=== PATIENT | male | born 1965 | race African-American/Black ===

== ENCOUNTER 2022-09-01 20:07 | Outpatient (CLI) | payer MEDICARE, MEDICAID, SELFPAY ==
--- OUTSIDE RECORDS SUMMARY | 2022-09-01 20:11 | XMS_ITS | Encounter Summary ---
:1965 Author Organization [place] Address [address] [place] [address] Care Team Providers Name Role Phone Preet Huff Primary Care Provider Encounter Details Date Type Department Care Team Description 03/17/2020 Travel Social History Tobacco Use Types Packs/Day Years Used Date Smoking Tobacco: Never Smokeless Tobacco: Never Alcohol Use Standard Drinks/Week Comments No 0 (1 standard drink = 0.6 oz pure alcoho l) Sex Assigned at Date Recorded Not on file COVID-19 Exposure Response Date Recorded In the last month, have you been in contact Unable to assess 03/17/2020 12:48 PM CDT with someone who was confirmed or suspected to have Coronavirus / COVID-19? documented as of this encounter Plan of Treatment Not on filedocumented as of this encounter Visit Diagnoses Not on filedocumented in this encounter Care Teams Bookbinding Machine Operator Relationship Specialty Start Date End Date Preet Huff PCP - General 06/24/11 documented as of this encounter
--- OUTSIDE RECORDS SUMMARY | 2022-09-01 20:11 | XMS_ITS | Encounter Summary ---
:1965 Author Organization [place] Address [address] [place] [address] Care Team Providers Name Role Phone Preet Huff Primary Care Provider Encounter Details Date Type Department Care Team Description 02/11/2022 Travel Social History Tobacco Use Types Packs/Day Years Used Date Smoking Tobacco: Never Smokeless Tobacco: Never Alcohol Use Standard Drinks/Week Comments No 0 (1 standard drink = 0.6 oz pure alcoho l) Sex Assigned at Date Recorded Not on file COVID-19 Exposure Response Date Recorded In the last 10 days, have you been in contact with No / Unsu re 02/11/2022 8:53 AM CDT someone who was confirmed or suspected to have Coronavirus/COVID-19? documented as of this encounter Plan of Treatment Not on filedocumented as of this encounter Visit Diagnoses Not on filedocumented in this encounter Care Teams Fitter Up Relationship Specialty Start Date End Date Preet Huff PCP - General 06/24/11 documented as of this encounter
--- OUTSIDE RECORDS SUMMARY | 2022-09-01 20:11 | XMS_ITS | Clinical Summary ---
:1965 Author Organization [employer] [facility] [employer] [facility] [place] [address] Care Team Providers Name Role Phone Preet Huff MD Primary Care Provider [phone] Allergies Active Allergy Reactions Severity Noted Date Comments Aspirin GI Bleeding Dihydroxyaluminum Aminoacetate Nausea Only Medium 07/16/2011 GI bleeding Medications Medication Sig Dispensed Refills Start Date End Date Status Diabetic One pair of 1 Units 0 11/03/2017 Active ShoeIndications: diabetic shoes. Controlled type 2 Diagnosis: diabetes mellitus with diabetes complication, without mellitus with long-term current use foot callous and of insulin (HC) bony deformity. wheelchairIndications: Wheelchair: 1 Device 0 12/20/2017 Active Unsteady gait Standard with leg rests: Swing away Length of need: 12 months WalkerIndications: Rolling Walker 1 Device 0 12/20/2017 Active Unsteady gait for home use. hospital Hospital bed 1 unit 0 01/31/2018 Active bedIndications: Foot with rails: ulcer, left, with Electric, Length unspecified severity of need 99 (HC) months. Diagnosis: foot ulcer with need to elevated foot of bed. bisacodyl (DULCOLAX) 5 Take 2 tablets 0 02/02/2018 Active mg tabletIndications: by mouth once Chronic constipation daily. Tuesday, Tuesday, Tuesday and Tuesday. CPAPIndications: CPAP machine for 1 unit 11 07/27/2018 Active Obstructive sleep home use at apnea pressure: 8 cm/H2O , Heated humidifier x 1, Humidifier chamber x 1, warfarin (COUMADIN) 5 Take 1 tablet by 90 tablet 3 11/16/2018 Active mg tabletIndications: mouth once Anticoagulation daily. management encounter cholecalciferol Take 1 capsule 90 capsule 3 11/16/2018 Active (D3-2000) 2,000 unit by mouth once capsuleIndications: daily. Vitamin D deficiency durable medical Walker with seat 1 Each 0 12/01/2018 Active equipment (DME)Indications: Gait instability Diaper,Brief, For home use. 119 Each 03/06/2020 A ctive Adult,Disposable (DEPEND UNDERWEAR FOR MEN L-XL)Indications: Incontinence ammonium lactate 12% Apply topically 396 g 5 12/29/2021 Active topical (LACHYDRIN) 12 to affected % lotionIndications: area(s) 2 times Dry skin, Type 2 daily. diabetes mellitus with pressure callus (HC) Calcium Acetate TAKE TWO 720 Capsule 1 03/08/2022 A ctive (PHOS-LO) 667 mg CAPSULES BY capsuleIndications: MOUTH THREE ESRD (end stage renal TIMES A DAY WITH disease) (HC) MEALS AND ONE CAPSULE WITH SNACKS DIRECTED metoprolol tartrate TAKE 2 TABLETS 128 Tablet 06/23/2022 Active (LOPRESSOR) 100 mg BY MOUTH ON tabletIndications: TUESDAY, Hypertension, TUESDAY, unspecified type TUESDAY, AND Tuesday. lisinopriL (PRINIVIL; Take 2 Tablets 180 Tablet 06/23/2022 Active ZESTRIL) 20 mg (40 mg) by mouth tabletIndications: once daily. Hypertension, unspecified type lactulose 10 gram/15 Take 30 mL (20 5400 mL 10 06/23/2022 Active mL g) by mouth two solutionIndications: times daily. Chronic constipation atorvastatin (LIPITOR) Take 1 Tablet 90 Tablet 06/23/2022 Active 20 mg (20 mg) by mouth tabletIndications: once daily. Mixed hyperlipidemia b complex-vitamin Take 1 Capsule 90 Capsule 06/23/2022 Active c-folic acid 1 mg by mouth once (Triphrocaps) 1 mg daily. capsuleIndications: CKD (chronic kidney disease), stage IV (HC) amLODIPine (NORVASC) TAKE ONE TABLET 128 Tablet 06/23/2022 Active 10 mg BY MOUTH TWICE tabletIndications: HTN DAILY ONLY ON (hypertension) TUESDAY, TUESDAY, TUESDAY, AND TUESDAY (NON-DIALYSIS DAYS) DIRECTED sennosides (SENNA) 8.6 Take 2 Tablets 360 Tablet 06/23/2022 Active mg tabletIndications: (17.2 mg) by Chronic constipation mouth two times daily. 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 04/29/2011 Secondary hyperparathyroidism (of renal origin) 2010 ESRD (end stage renal disease) 11/17/2010 Anemia in chronic kidney disease(285.21) 06/27/2009 Orthostasis 03/13/2009 Syncope 03/13/2009 Obesity, unspecified 11/15/2007 Proteinuria 09/29/2007 Legal blindness, as defined in [place] 01/06/2007 Unspecified essential hypertension 01/06/2007 SHIRLEY on CPAP Overview: CPAP Resolved Problems Problem Noted Date Resolved Date Hypertensive urgency 07/13/2015 05/22/2020 Open thigh wound 06/30/2014 08/13/2019 SHIRLEY (obstructive sleep apnea) 11/18/2010 07/13/2015 Sleep Apnea 02/21/2008 AHI 18, retest 11/04/10 11/09/2010 11/09/2010 Sleep Apnea 02/21/2008 AHI 18, retest 11/04/10 11/09/2010 08/13/2019 ANEMIA 01/12/2010 09/29/2011 Anemia in chronic kidney disease(285.21) 06/27/2009 08/07/2009 Anemia in chronic kidney disease(285.21) 06/27/2009 08/07/2009 Anemia in chronic kidney disease(285.21) 04/18/2009 08/07/2009 Type 2 diabetes mellitus with ophthalmic complication, 03/1402/02/2018 without long-term current use of insulin Hyperkalemia 03/13/2009 07/13/2015 Dehydration 03/13/2009 07/13/2015 Anemia in chronic kidney disease(285.21) 02/07/2009 08/07/2009 Anemia in chronic kidney disease(285.21) 10/04/2008 03/13/2009 CKD (chronic kidney disease), stage IV 07/12/2008 1 12/01/2015 Sleep Apnea 02/21/2008 AHI 18 05/21/2008 11/09/2010 Mixed hyperlipidemia 04/02/2008 07/13/2015 Background diabetic retinopathy(362.01) 11/15/2007 09/30/2016 Anemia, unspecified 01/06/2007 07/13/2015 Encounters Date Type Specialty Care Team Description 08/31/2022 Nurse/Clinic Staff Testing ( Pre-procedure Only COVID test) 08/31/2022 Travel 07/15/2022 Office Visit Lizandro Singh MD Sleep Follow -up (CPAP) 07/15/2022 Travel 06/29/2022 Office Visit Anival Carson Follow Up (6 month R, DPM diabetic foot c heck) 06/29/2022 Travel 06/23/2022 Office Visit Preet Huff Medication Management; MD Criss Immunization/In jection; Immunization/In jection (COVID-19 vacci ne) 06/23/2022 Travel 06/10/2022 Telephone Preet Huff Medication Management MD Criss (metoprolol tar trate (LOPRESSOR) ) 06/07/2022 Refill Preet Huff Refill Requ est MD Criss (Metoprolol Tar trate, Amlodipine) from Last 3 Months Immunizations Name Administration Dates Next Due COVID-19 vaccine (Moderna 11/28/2020, 10/31/2020 100mcg/0.5mL) PF, MDV COVID-19 vaccine ([employer] 06/23/2022 30mcg/0.3mL) 12YO+ BIVALENT BOOSTER PF, MDV Hepatitis B (Adult) 11/07/2013, 09/25/2013, 04/24/2013, 11/1003/23/2011, 01/28/2011, 12/26/2010, 11/12/2010, 07/14/2010, 03/11/2010, 02/11/2010, 01/12/2010, 10/21/2009 Influenza A (H1N1), Inactivated (Age 0110/21/2009 >=3 Years) Influenza Virus, Unspecified 07/20/2016, 07/27/2014 Influenza, IIV3 (Age >=3 years) 07/13/2017, 06/27/2013, 1006/2012, 07/14/2010, 07/09/2009, 09/06/2007 Influenza, IIV4 06/23/2022, 08/05/2021, 07/11/2020, 08/01/2019, 07/13/2018, 07/17/2015 Influenza, IIV4 (=>6mos) MDV 07/13/2017 Pneumococcal Poly,23-Valent 10/09/2008 (Pneumovax) Pneumococcal conj 13-Valent (Prevnar 01/17/2019 13) Pneumococcal, Unspecified 12/02/2015, 10/12/2010 Tdap 10/21/2009 Tuberculin (PPD) 12/09/2021, 12/15/2020, 11/21/2019, 10/12/2018, 11/05/2017, 10/21/2016, 10/21/2015, 11/02/2014, 02/14/2014, 11/30/2011, 10/21/2009 Family History Medical History Relation Name Comments Diabetes Maternal Aunt 1 Hypertension Maternal Aunt 2 Cancer-colon Maternal Grandmother Hypertension Mother Cancer-prostate Neg. 1 Heart Disease Neg. 2 Anesthesia Problem No Family History Relation Name Status Comments Maternal Aunt 1 Maternal Aunt 2 Maternal Grandmother Mother Neg. 1 Neg. 2 Social History Tobacco Use Types Packs/Day Years Used Date Passive Smoke Exposure - Never Smoker Smokeless Tobacco: Never Used Tobacco Cessation: Counseling Given: Yes Comments: people smoke in house Alcohol Use Standard Drinks/Week Comments No 0 (1 standard drink = 0.6 oz pure alcoho l) Sex Assigned at Date Recorded Not on file COVID-19 Exposure Response Date Recorded In the last 10 days, have you been in contact with No / Unsu re 08/31/2022 2:42 PM CONSULTANT TECHNOLOGY someone who was confirmed or suspected to have Coronavirus/COVID-19? Obstetrics History Last Filed Vital Signs Vital Sign Reading Time Taken Comments Blood Pressure 122/85 07/15/2022 1:59 PM CDT Pulse 60 07/15/2022 1:59 PM CDT Temperature 36.9 ??C (98.4 ??F) 05/22/2020 1:36 PM CDT Respiratory Rate 18 06/07/2018 11:08 AM CDT Oxygen Saturation 99% 07/15/2022 1:59 PM CDT Inhaled Oxygen Concentration - - Weight 87.7 kg (193 lb 6.4 oz) 07/15/2022 1:59 PM CDT Height 171.9 cm (5' 7.68) 06/23/2022 3:03 PM CDT Body Mass Index 29.69 06/23/2022 3:03 PM CDT Plan of Treatment Upcoming Encounters Date Type Specialty Care Team Description 09/07/2022 Office Visit Myrna Carson, DPM [address] [place], [place] [address] (Wo rk) Health Maintenance Due Date Last Done Comments Zoster (shingles) series for age 0603/27/1982 50+ (1 of 2) Tetanus booster 10/21/2019 10/21/2009 Depression screening for age 12+ 08/13/2020 08/13/2019, 03/2017, 02/06/2016 BMI (ht and wt on same day) for 06/23/2023 06/23/2022, 05/2021, age 18+ 09/05/2020, Additional history exists Colonoscopy through age 75 09/24/2023 09/24/2013, 3 Lipids for age 45-75 11/18/2026 11/18/2021, 09/05/2020, 05/22/2020, Additional history exists Pneumococcal series for age 19-64 2028 01/17/2019, , (4 - PPSV23 if available, else 10/12/2010, Addit ional history PCV20) exists HIV for age 15-65 Completed 03/04/2009 Hepatitis C screening for age Completed 03/04/2009 18-79 Tdap Completed 10/21/2009 Hepatitis B series for Diabetes Completed 11/07/2013, 09/09, 04/24/2013, Additional history exists COVID-19 vaccine series Completed 06/23/2022, 01/13/2022, 08/17/2021, Additional history exists Influenza for age 50-64 Completed 06/23/2022, 08/05/2021, 07/11/2020, Additional history exists Medical Devices Implanted Type Area Rate Clerk Device Shelf Model / Identifier Expiration Date Ser ial / Lot Cath Peritoneal Cvd 62cm - [id number] N/A: Abdomen STIVEN 05/10/2014 [id number] / Implanted: Qty: 1 on 10/31/[address] [facility] / [id number] Procedures Procedure Name Priority Date/Time Associated Comments Diagnosis COVID 19 Routine 08/31/2022 2:44 PM Encounter for Results for this CONSULTANT TECHNOLOGY pre-operative procedure are in laboratory testing the resul ts section. COVID 19 COLLECTION Routine 08/31/2022 2:44 PM Encounter for R esults for this CONSULTANT TECHNOLOGY pre-operative procedure are in laboratory testing the resul ts section. HEMOGLOBIN A1C Routine 06/23/2022 4:25 PM DM type 2 with Resul ts for this CDT diabetic peripheral procedur e are in neuropathy (HC) the results section. from Last 3 Months Results COVID 19 (08/31/2022 2:44 PM CONSULTANT TECHNOLOGY) Analysis Performed At Patho logist Time Signature COVID 19 Negative Negative 09/01/2022 [facility] 6:55 PM CONSULTANT TECHNOLOGY LABORATORY-[facility] Specimen Anatomical Location / Collection Method Collection Wild e Received Time (Source) Laterality / Volume Other SPECIMEN FROM Non-Blood / 08/31/2022 2:44 09/01/2022 7:14 NASOPHARYNGEAL Unknown PM CONSULTANT TECHNOLOGY AM CONSULTANT TECHNOLOGY STRUCTURE / Unknown Narrative [facility] - 09/01/2022 6:55 PM CONSULTANT TECHNOLOGY All PCR tests are subject to false negative result due to variability in viral load and collection te chnique. A negative result does not rule out a SARS-CoV-2 infection. Clinical correlation required. This test has been authorized by FDA und er an Emergency Use Authorization (EUA). This test is only authorized for the duration of time the declaration that circumstances exist justifying the authorizati on of the emergency use of in vitro diag nostic tests for detection of SARS-CoV-2 virus and/or diagnosis of COVID-19 infection under section 564(b)(1) of the Act, 21 U.S.C. 360bbb-3(b) (1), unless the authorization is terminated or revoked sooner. Lizandro Singh MD MICROBIOLOGY Performing Organization Address City/State/ZIP Code Phon e Number [facility] [address] [place] [address] LABORATORY-CENTRAL 2000 LABORATORY COVID 19 COLLECTION (08/31/2022 2:44 PM CONSULTANT TECHNOLOGY) Patholo gist Method Time Signature TESTING [facility] 09/01/2022 [facility] Laboratory 7:14 AM CONSULTANT TECHNOLOGY LABORATORY-CE NTRAL LABORATORY Comment: Specimen submitted to [facility] for testing. Specimen Anatomical Location / Collection Method Collection Wild e Received Time (Source) Laterality / Volume Other SPECIMEN FROM Non-Blood / 08/31/2022 2:44 08/31/2022 2:52 NASOPHARYNGEAL Unknown PM CONSULTANT TECHNOLOGY PM CONSULTANT TECHNOLOGY STRUCTURE / Unknown Lizandro Singh MD SEND OUTS Performing Organization Address City/[facility]/ZIP Code Phon e Number [facility] [address] [place] [address] LABORATORY-CENTRAL 2000 LABORATORY HEMOGLOBIN A1C MONITORING (POCT) (06/23/2022 4:25 PM CDT) athologist Signature HEMOGLOBIN A1C 4.6 <=6.4 % 06/23/2022 [facility] MONITORING 4:38 PM CDT [place] (POCT) [facility] Specimen Anatomical Collection Method / Collection Time Recei ten Time (Source) Location / Volume Laterality Blood BLOOD SPECIMEN / Venipuncture / 06/23/2022 4:25 2021 4:26 Unknown Unknown PM CDT PM CDT Narrative [facility] - 2021 4:38 PM CDT ? (<=6.9%) ? Indicates good control ? (7.0% to 7.9%) ? Indicates fa ir control ? (>=8.0%) ? Indicates poor control ?? NOTE: ??These thresholds are guideli emily and ?individual targets may va ry. Falsely low levels may be seen with: Recent Transfusion, Recent Significant B lood Loss, Hemolytic Diseases, or Falsely elevated levels may be seen with : Untreated Anemias, Splenectomy ? Preet Huff MD CHEMISTRY Performing Organization Address City/[facility]/ZIP Code Phon e Number [facility] [address] [place] [address] from Last 3 Months Insurance Payer Benefit Plan / Subscriber ID Effective Phone Address T ype Group Dates KIDNEY KIDNEY [id number] Effective for [address] ACQUISITION CTR all dates STRE ET PB PB ONLY [place]W - [address] [place] [address] MEDICARE PART B - MEDICARE PART B [id number] 1992-Prese ATTN: CLAIMS HB USE ONLY HB ONLY nt [address] [place] [address] MEDICARE PART A - MEDICARE PART A [id number] 1992-Prese ATTN: CLAIMS HB USE ONLY HB ONLY nt [address] [place] [address] MEDICARE - PB USE MEDICARE PB ONLY [id number] 1992-Prese ATTN: CLAIMS ONLY nt [address] [place] [address] KIDNEY KIDNEY [id number] 2009-Prese [address] ACQUISITION CTR nt STRE ET HB ONLY HB ONLY [place]W - [address] [place] [address] [place] [id number] 1992-Prese [address] [place] [address] Advance Directives Documents on File Type Date Recorded Patient Music Engineer Explanati on Power of Building Contractor 09/04/2014 12:00 AM 03/19/2009 Latest Code Status on File Code Status Date Activated Date Inactivated Comments Full Code 07/13/2015 12:39 PM 07/14/2015 9:58 PM Code Status Discussion: Discussed Full Code 11/18/2010 3:29 PM 11/18/2010 7:15 PM Full Code 11/18/2010 2:39 PM 11/18/2010 3:29 PM Full Code 10/31/2009 6:56 AM 10/31/2009 12:55 PM Full Code 03/13/2009 5:57 PM 03/16/2009 5:32 PM Care Teams Installation & Maintenance Executive Relationship Specialty Start Date End Date Preet Huff MD PCP - General 12/02/[address] [place] [address]
--- OUTSIDE RECORDS SUMMARY | 2022-09-01 20:11 | XMS_ITS | Encounter Summary ---
:1965 Author Organization [place] Address [address] [place] [address] Care Team Providers Name Role Phone Preet Huff Primary Care Provider Encounter Details Date Type Department Care Team Description 10/02/2019 Travel Social History Tobacco Use Types Packs/Day Years Used Date Smoking Tobacco: Never Smokeless Tobacco: Never Alcohol Use Standard Drinks/Week Comments No 0 (1 standard drink = 0.6 oz pure alcoho l) Sex Assigned at Date Recorded Not on file documented as of this encounter Plan of Treatment Not on filedocumented as of this encounter Visit Diagnoses Not on filedocumented in this encounter Care Teams Diagnostics Tech Relationship Specialty Start Date End Date Preet Huff PCP - General 06/24/11 documented as of this encounter
--- OUTSIDE RECORDS SUMMARY | 2022-09-01 20:11 | XMS_ITS | Encounter Summary ---
:1965 Author Organization [place] Address [address] [facility] [place] [address] Care Team Providers Name Role Phone Preet Huff Hans Primary Care Provider Encounter Details Date Type Department Care Team Description 03/11/[address] [facility] Wojciech Holman Enco unter for [facility] [place] screening for other [address] INTERMED viral diseases [place], [place] [employer]SULTANTS (Primary Dx) [id number] [address] [facility] [phone] [address] [place] [address] Social History Tobacco Use Types Packs/Day Years Used Date Smoking Tobacco: Never Smokeless Tobacco: Never Alcohol Use Standard Drinks/Week Comments No 0 (1 standard drink = 0.6 oz pure alcoho l) Sex Assigned at Date Recorded Not on file documented as of this encounter Plan of Treatment Not on filedocumented as of this encounter Results Asymptomatic COVID-19 Virus (Coronavirus) by PCR (03/17/2020 1:03 PM CDT) Component Value Ref Test Analysis Performed At [facility] Range Method Time Signature COVID-19 Nasopharyngeal 03/17/2020 PLESSIS Virus PCR to 1:08 PM CDT CLINICS [facility] [place] COVID-19 Test received-See 03/17/2020 INFECTIOUS Virus PCR to reflex to IDDL 2:16 PM CDT DISEASES [facility] - test SARS CoV2 DIAGNOSTIC Result (COVID-19) Virus LABORATORY RT-PCR Specimen (Source) Anatomical Collection Method Collection Time Re ceived Time Location / / Volume Laterality Specimen from 03/17/2020 1:03 03/17/2020 nasopharyngeal PM CDT 1:08 PM CDT structure (specimen) G Jagdeep Holman MD LAB - MICRO GENERAL ORDERABL ES Performing Organization Address City/State/ZIP Code Phon e Number INFECTIOUS DISEASES [address] [place] [address] DIAGNOSTIC LABORATORY, [facility] [address] [place] [address] [facility] INFECTIOUS DISEASES [address] [place] [address], A DIAGNOSTIC LABORATORY documented in this encounter Visit Diagnoses Diagnosis Encounter for screening for other viral diseases - Primary documented in this encounter Care Teams Wheel Tuner Relationship Specialty Start Date End Date Preet Huff PCP - General 06/24/11 documented as of this encounter
--- OUTSIDE RECORDS SUMMARY | 2022-09-01 20:11 | XMS_ITS | Encounter Summary ---
:1965 Author Organization [place] Address [address] [facility] [place] [address] Care Team Providers Name Role Phone Preet Huff Primary Care Provider Reason for Visit Reason Onset Date Comments Vascular Access Problem 12/25/2019 question re: pos sible PD placement Encounter Details Date Type Department Care Team Description 12/25/2019 Telephone [facility] Jaxon Saravia Vascular Access Problem [facility] [place] MD (question re: possible [address] PD placement) [phone] [place] [phone] ANTOINETTE FRASER [id number] (Wo rk) Social History Tobacco Use Types Packs/Day Years Used Date Smoking Tobacco: Never Smokeless Tobacco: Never Alcohol Use Standard Drinks/Week Comments No 0 (1 standard drink = 0.6 oz pure alcoho l) Sex Assigned at Date Recorded Not on file documented as of this encounter Miscellaneous Notes Telephone Encounter - Mona Vang RN - 12/25/2019 10:30 AM CDT Received a call from pt's aunt Thelma requesting Dr. Saravia to place a PD catheter for home dialysis.No requests have been received from nephrology regarding this, nor any calls received from Isrrael Paez. I called Isrrael Paez to discuss further. I spoke with LINDA Canchola who was not aware of this request. Jesika stated she would speak with Dr. Mason tomorrow when he is rounding there. I attemptedto call Thelma back to discuss this with her, however I was unable to leave a message. Will await call back from Isrrael if further action is needed. LUIS VargasN, RN-[facility] documented in this encounter Plan of Treatment Not on filedocumented as of this encounter Visit Diagnoses Not on filedocumented in this encounter Care Teams Cripple Chaser Relationship Specialty Start Date End Date Preet Huff PCP - General 06/24/11 documented as of this encounter
--- OUTSIDE RECORDS SUMMARY | 2022-09-01 20:11 | XMS_ITS | Encounter Summary ---
:1965 Author Organization [place] Address [address] [place] [address] Care Team Providers Name Role Phone Preet Huff Primary Care Provider Encounter Details Date Type Department Care Team Description 03/18/2020 Travel Social History Tobacco Use Types Packs/Day Years Used Date Smoking Tobacco: Never Smokeless Tobacco: Never Alcohol Use Standard Drinks/Week Comments No 0 (1 standard drink = 0.6 oz pure alcoho l) Sex Assigned at Date Recorded Not on file COVID-19 Exposure Response Date Recorded In the last month, have you been in contact with No / Unsure 03/18/2020 9:02 AM CDT someone who was confirmed or suspected to have Coronavirus / COVID-19? documented as of this encounter Plan of Treatment Not on filedocumented as of this encounter Visit Diagnoses Not on filedocumented in this encounter Care Teams Watermelon Harvesting Supervisor Relationship Specialty Start Date End Date Preet Huff PCP - General 06/24/11 documented as of this encounter
--- OUTSIDE RECORDS SUMMARY | 2022-09-01 20:11 | XMS_ITS | Encounter Summary ---
:1965 Author Organization [place] Address [address] [facility] [place] [address] Care Team Providers Name Role Phone Preet Huff Primary Care Provider Reason for Referral Therapeutic Imaging/IR (Routine) - Closed Specialty Diagnoses / Procedures Referred By Contact Refer red To Contact Radiology. Diagnoses ESRD (end stage renal disease) (H) Braeden Carlson, Darren Interventional R ad Procedures IR Dialysis Fistulogram Left BESSIE [address] [place] [address] [address] [facility] Phone: [phone] [place] [phone] Referral ID Status Reason Start Date Expiration Date Visits Requ ested Visits Authorized [id number] Closed 09/24/2019 09/23/2020 1 1 NISTRATIVE LIAISON Encounter Details Date Type Department Care Team Description 10/02/2019 Hospital Encounter [facility] Patricia Olvera SRD (end stage [place] [facility] ProviderMissael Andrade MD renal disease) (H) [address] [facility] [place] [place] [facility] [id number] [address] [facility] [phone] [address] [place], [place] [id number] Social History Tobacco Use Types Packs/Day Years Used Date Smoking Tobacco: Never Smokeless Tobacco: Never Alcohol Use Standard Drinks/Week Comments No 0 (1 standard drink = 0.6 oz pure alcoho l) Sex Assigned at Date Recorded Not on file documented as of this encounter Last Filed Vital Signs Vital Sign Reading Time Taken Comments Blood Pressure 147/71 10/02/2019 11:30 AM ADMINISTRATIVE LIAISON Pulse 59 10/02/2019 11:30 AM ADMINISTRATIVE LIAISON Temperature 36.8 ??C (98.2 ??F) 10/02/2019 8:26 AM ADMINISTRATIVE LIAISON Respiratory Rate 14 10/02/2019 11:30 AM ADMINISTRATIVE LIAISON Oxygen Saturation 99% 10/02/2019 11:30 AM ADMINISTRATIVE LIAISON Inhaled Oxygen - - Concentration Weight 83.9 kg (185 lb) 10/02/2019 8:26 Simultaneous fi ling. AM ADMINISTRATIVE LIAISON User may not hav e seen previous data. Height 162.6 cm (5' 4) 10/02/2019 8:26 Simultaneous fi ling. AM ADMINISTRATIVE LIAISON User may not hav e seen previous data. Body Mass Index 31.76 10/02/2019 8:26 AM ADMINISTRATIVE LIAISON documented in this encounter Discharge Instructions Discharge InstructionsNely Ortiz RN - 10/02/2019 8:44 AM ADMINISTRATIVE LIAISON Invasive Radiology Procedures Discharge Instructions Patient Name: Herminio Victor Today's Date: October 02, 2019 The doctor who did your procedure today was Dr. Olvera. Procedure: Fistulagram ?? If you go home with sheaths in place, keep the arm straight. Don???t bend or use your arm until after dialysis. ?? For the first 24 hours, keep the arm raised on pillows as much as you can. This reduces swelling. ?? If you have bleeding or swelling at the puncture site, use your fingertip to put gentle pressure on the area. Do this until the bleeding stops or the swelling goes down. ?? If you lose the pulse in your fistula, or you no longer fill a thrill (buzzing feeling), call your doctor or dialysis clinic ?? If you have not received your results after 5 days, please call the doctor who ordered your test. Diet and medicines ?? Go back to your normal diet. ?? You may start taking your normal medicines again (including Coumadin, or warfarin), as shown on your medicine sheet. ?? If you take aspirin, Plavix or other anti-platelet drugs: Start taking it tomorrow. ?? If take Coumadin (warfarin): Ask your doctor when to have your INR checked. ?? For minor pain, you may take Tylenol (acetaminophen) or Advil (ibuprofen). Activity and puncture site ?? You may go back to normal activity in 24 hours. Wait 48 hours before lifting, straining, exercise or other strenuous activity. ?? For the next day or two, check your puncture site often while you are awake. ?? Change the Band-Aid or bandage tomorrow. ?? You may shower tomorrow morning. No bathing or swimming until your puncture site has fully healed. If you received IV medicine to sedate you: You were given: Versed and Fentanyl You may feel drowsy, forgetful or unsteady. For the next 24 hours, [address] not drive, drink alcohol or make any important decisions. Know when to call for help Call your doctor if you have: ?? A fever greater over 101??F (38.3??C), taken under the tongue. ?? A lot of bleeding or swelling at your puncture site. ?? Pain that is getting worse. ?? Shortness of breath. Call 911 or go the emergency room if you have: ?? Severe chest pain or trouble breathing. ?? A tube that falls out. ?? Increased blood in your sputum (phlegm). ?? Bleeding that you cannot control. Important phone numbers: [facility] at [phone] NISTRATIVE LIAISON documented in this encounter Medications at Time of Discharge Medication Sig Dispensed Refills Start Date End Date AMLODIPINE BESYLATE PO Take 10 mg by mouth 0 four times a week On Non dialysis days which is MWFSun atorvastatin (LIPITOR) 20 Take 1 tablet (20 mg) 30 tablet 3 12/19/2017 MG tabletIndications: by mouth every evening Mixed hyperlipidemia BISACODYL PO Take 10 mg by mouth 0 four times a week (Takes 2 x 5mg tablet = 10mg dose) Tuesday, Tuesday, Tuesday, and Tuesday Calcium Acetate, Phos Take 1,334 mg by mouth 0 Binder, (CALCIUM ACETATE 3 times daily (with PO) meals) Takes with meals (2 x 667mg tablet) Cholecalciferol (VITAMIN Take 2,000 Units by 0 D3 PO) mouth every evening lactulose (CHRONULAC) 10 Take 15-60 mLs by 0 GM/15ML solution mouth daily as needed for constipation LISINOPRIL PO Take 40 mg by mouth 0 daily (Takes 2 x 20mg tablet = 40mg ) METOPROLOL TARTRATE PO Take 100 mg by mouth 2 0 times daily Take on MWFSun, on Non-dialysis days multivitamin RENAL Take 1 capsule by 0 (MULTIVITAMIN RENAL) 1 MG mouth daily capsule omeprazole (PRILOSEC) 20 Take 20 mg by mouth [address] capsule daily oxyCODONE IR (ROXICODONE) Take 1 tablet (5 mg) 30 tablet 0 12/29/2017 5 MG tabletIndications: by mouth daily maximum Ulcer of heel and 6 tablet(s) per day midfoot, unspecified laterality, with fat layer exposed (H) oxyCODONE IR (ROXICODONE) Take 1-2 tablets (5-10 30 tablet 0 12/19/2017 5 MG tabletIndications: mg) by mouth every 4 Post-op pain hours as needed for other (pain control or improvement in physical function. Hold dose for analgesic side effects.) warfarin (COUMADIN) 4 MG Take 1 tablet (4 mg) 30 tablet 1 0 12/19/2017 tabletIndications: by mouth daily Problem with dialysis access, subsequent encounter documented as of this encounter Progress Notes Rima Mai RN - 09/24/2019 11:02 AM CST Ordering Clinic: Mahendra HERNANDEZ, nephrology [facility] M[facility]F Procedure: fistulagram Arrival date: 10.02.2019 Arrival time: 0830 (or so d/t transport) NPO explained: yes Does patient have transportation available pre and post procedure? yes Check-in procedure explained: yes Allergies reviewed: no, not with patient Blood thinners: n/a Labs: n/a H&P: See [facility] Notes Does patient require reporter? no If so, language? [employer] Specialist services called to order reporter? [employer] Specialist date requested: [employer] Specialist arrival time requested: Name of individual from reporter services assisting with scheduling appointment: Previous sedation: Last oral intake: solid: Liquids: NISTRATIVE LIAISON documented in this encounter Procedure Notes Patricia Olvera MD - 10/02/2019 12:01 PM CSTAssociated Order(s): Fistulagram and DINING ROOM CAPTAIN [facility] Procedure: Fistulagram and DINING ROOM CAPTAIN Date/Time: 10/02/2019 12:00 PM Performed by: Patricia Olvera MD Authorized by: Patricia Olvera MD [employer] Site Marked: NA Prior Images Obtained and Reviewed: Yes Required items: Required blood products, implants, devices and special equipment available Patient identity confirmed: Verbally with patient, arm band, provided demographic data and hospital-assigned identification number Patient was reevaluated immediately before administering moderate or deep sedation or anesthesia Confirmation Checklist: Patient's identity using two indicators, relevant allergies, procedure was appropriate and matched the consent or emergent situation and correct equipment/implants were available Time out: Immediately prior to the procedure a time out was called [place] Protocol: the Joint Commission [place] Protocol was followed Preparation: Patient was prepped and draped in usual sterile fashion ESBL (mL): 5 ANESTHESIA Anesthesia: Local infiltration Local Anesthetic: Lidocaine 1% without epinephrine Anesthetic Total (mL): 2 SEDATION Patient Sedated: Yes Sedation Type: Moderate (conscious) sedation Sedation: Fentanyl and midazolam Vital signs: Vital signs monitored during sedation See dictated procedure note for full details. Findings: LLE fistulagram with 8 mm cutting balloon DINING ROOM CAPTAIN of outflow vein, as well as 10 mm DINING ROOM CAPTAIN of outflow vein. Specimens: none Complications: None Condition: Stable PROCEDURE Patient Tolerance: Patient tolerated the procedure well with no immediate complications Length of time physician/provider present for 1:1 monitoring during sedation: 30 NISTRATIVE LIAISON documented in this encounter Miscellaneous Notes Sedation Documentation - Barbara Perez RN - 10/02/2019 10:34 AM CST Post Procedure Summary: Prior to the start of the procedure and with procedural staff participation, I verbally confirmed the patient???s identity using two indicators, relevant allergies, that the procedure was appropriate and matched the consent or emergent situation, and that the correct equipment/implants were available. Immediately prior to starting the procedure I conducted the Time Out with the procedural staff and re-confirmed the patient???s name, procedure, and site/side. (The Joint Commission universal protocol was followed.) Yes Sedatives: Fentanyl and Midazolam (Versed) Vital signs, airway and pulse oximetry were monitored and remained stable throughout the procedure and sedation was maintained until the procedure was complete. The patient was monitored by staff untilsedation discharge criteria were met. Patient tolerance: Patient tolerated the procedure well with no immediate complications. Time of sedation in minutes: 30 Minutes minutes from beginning to end of physician one to one monitoring. NISTRATIVE LIAISON Pre-Procedure - Patricia Olvera MD - 10/02/2019 8:37 AM CST GENERAL PRE-PROCEDURE: Procedure: LLE fistulagram Date/Time: 10/02/2019 8:37 AM Verbal consent obtained?: Yes Written consent obtained?: Yes Risks and benefits: Risks, benefits and alternatives were discussed Consent given by: Patient Patient states understanding of procedure being performed: Yes Patient's understanding of procedure matches consent: Yes Procedure consent matches procedure scheduled: Yes Expected level of sedation: Moderate Appropriately NPO: Yes ASA Class: Class 3- Severe systemic disease, definite functional limitations Mallampati : Grade 3- soft palate visible, posterior pharyngeal wall not visible Lungs: Lungs clear with good breath sounds bilaterally Heart: Normal heart sounds and rate History & Physical reviewed: History and physical reviewed and no updates needed Statement of review: I have reviewed the lab findings, diagnostic data, medications, and the plan for sedation NISTRATIVE LIAISON documented in this encounter Plan of Treatment Not on filedocumented as of this encounter Procedures Procedure Name Priority Date/Time Associated Comments Diagnosis IR PROCEDURE NOTE Routine 10/02/2019 12:01 Result s for this PM ADMINISTRATIVE LIAISON procedure are i n the results section. IR DIALYSIS Routine 10/02/2019 10:59 ESRD (end stage Results for this FISTULOGRAM LEFT AM ADMINISTRATIVE LIAISON renal disease) (H) proce dure are in the results section. documented in this encounter Results Fistulagram and DINING ROOM CAPTAIN (10/02/2019 12:01 PM ADMINISTRATIVE LIAISON) Narrative Patricia Olvera MD - 10/02/2019 12:01 PM ADMINISTRATIVE LIAISON Patricia Olvera MD ? 10/02/2019 12:01 PM [facility] Procedure: Fistulagram and DINING ROOM CAPTAIN Date/Time: 10/02/2019 12:00 PM Performed by: Patricia Olvera M D Authorized by: Patricia Olvera MD [employer] Site Marked: NA Prior Images Obtained and Reviewed: ??Ye s Required items: Required blood products, implants, devices and special equipment available ?? Patient identity confirmed: ??Verbally w ith patient, arm band, provided demographic data and hospital-assigned i dentification number Patient was reevaluated immediately befo re administering moderate or deep sedation or anesthesia Confirmation Checklist: ??Patient's iden tity using two indicators, relevant allergies, procedure was appropriate and matched the consent or emergent situation and correct equipment/implants were available Time out: Immediately prior to the proce dure a time out was called ?? [place] Protocol: the Joint Commission [place] Protocol was followed ?? Preparation: Patient was prepped and grazyna ped in usual sterile fashion ?? ESBL (mL): ??5 ANESTHESIA Anesthesia: Local infiltration Local Anesthetic: ??Lidocaine 1% without epinephrine Anesthetic Total (mL): ??2 SEDATION Patient Sedated: Yes ?? Sedation Type: ??Moderate (conscious) se dation Sedation: ??Fentanyl and midazolam Vital signs: Vital signs monitored durin g sedation ?? See dictated procedure note for full det ails. Findings: LLE fistulagram with 8 mm cutt ing balloon DINING ROOM CAPTAIN of outflow vein, as well as 10 mm DINING ROOM CAPTAIN of outflow vein. Specimens: none Complications: None Condition: Stable PROCEDURE Patient Tolerance: ??Patient tolerated t he procedure well with no immediate complications Length of time physician/provider presen t for 1:1 monitoring during sedation: 30 Patricia Olvera MD PROCEDURE/MINOR SURGICAL ORD ERABLES IR Dialysis Fistulogram Left (10/02/2019 10:59 AM ADMINISTRATIVE LIAISON) Anatomical Region Laterality Modality Upper Extremity Radio Fluoroscopy, R adio Fluoroscopy Specimen (Source) Anatomical Location Collection Method / Collectio n Time Received Time / Laterality Volume Impressions 10/02/2019 4:22 PM ADMINISTRATIVE LIAISON IMPRESSION: Fistulogram with 10 mm balloon angioplasty of the venous anastomosis and outflow vein. PATRICIA OLVERA MD Narrative 10/02/2019 4:22 PM ADMINISTRATIVE LIAISON INTERVENTIONAL RADIOLOGY DIALYSIS FISTULOGRAM LEFT 10/02/2019 10:59 AM HISTORY: 54-year-old patient with end-st age renal disease and left thigh fistula. Request made for fistulog isrrael and possible angioplasty. COMPARISON: January 25, 2019. TECHNIQUE: Patient was brought to the In terventional Radiology Department and informed consent obtained . Patient was placed in a supine position. Skin overlying the fist odette in the left thigh was prepped and draped in standard sterile f ashion. 1% lidocaine used for local anesthesia. Ultrasound was used fo r visualization as hope is for a single puncture so that the needle wou ld be at a perpendicular angle to the fistula. Ultrasound image stored for documentation. With continuous ultrasound guidance, a microp uncture kit used to access the fistula. An 035 Bentson wire was placed, over which a Berenstein catheter was placed. The catheter and wi re were placed retrograde into the superficial femoral artery where ang iogram performed. The catheter was then pulled back to the arterial eneida stomosis where angiogram repeated. Catheter and wire were then re directed in an antegrade direction to the venous anastomosis and fistulogram performed. A Bentson wire and a 6 Ghanaian sheath was p laced. 10 mm balloon angioplasty performed at the venous anas tomosis. An 8 mm cutting balloon was also utilized followed by 10 mm balloon angioplasty. Completion venogram demonstrates improve d result. The sheath was removed and hemostasis achieved with man ual compression. Sedation: A moderate level of sedation a chieved with 2 mg IV Versed, 100 mcg IV fentanyl. Sedation time: 30 minutes Please note the above medications were a dministered by Interventional Radiology staff under my direct supervis ion. The patient's vital signs were monitored and remained stable throu ghout the procedure. Fluoroscopic time: 4 minutes Air Kerma: 79 mGy Local anesthetic: 2 mL of 1% lidocaine. Contrast: 35 mL of Isovue-300 administer ed intra-arterially and intravenously without complication. FINDINGS: A total of 8 angiogram and his togram sequences obtained throughout the procedure. Arterial anast omosis is patent. The entire fistula is dilated, with pseudoaneurysma l dilatation. Moderate to severe stenosis at and just beyond the v enous anastomosis. After angioplasty, there is improved flow thro ugh the venous anastomosis. Procedure Note Patricia Olvera MD - 10/02/2019 INTERVENTIONAL RADIOLOGY DIALYSIS FISTUL OGRAM LEFT 10/02/2019 10:59 AM HISTORY: 54-year-old patient with end-st age renal disease and left thigh fistula. Request made for fistulog isrrael and possible angioplasty. COMPARISON: January 25, 2019. TECHNIQUE: Patient was brought to the In terventional Radiology Department and informed consent obtained . Patient was placed in a supine position. Skin overlying the fist odette in the left thigh was prepped and draped in standard sterile f ashion. 1% lidocaine used for local anesthesia. Ultrasound was used fo r visualization as hope is for a single puncture so that the needle wou ld be at a perpendicular angle to the fistula. Ultrasound image stored for documentation. With continuous ultrasound guidance, a microp uncture kit used to access the fistula. An 035 Bentson wire was placed, over which a Berenstein catheter was placed. The catheter and wi re were placed retrograde into the superficial femoral artery where ang iogram performed. The catheter was then pulled back to the arterial eneida stomosis where angiogram repeated. Catheter and wire were then re directed in an antegrade direction to the venous anastomosis and fistulogram performed. A Bentson wire and a 6 Ghanaian sheath was p laced. 10 mm balloon angioplasty performed at the venous anas tomosis. An 8 mm cutting balloon was also utilized followed by 10 mm balloon angioplasty. Completion venogram demonstrates improve d result. The sheath was removed and hemostasis achieved with man ual compression. Sedation: A moderate level of sedation a chieved with 2 mg IV Versed, 100 mcg IV fentanyl. Sedation time: 30 minutes Please note the above medications were a dministered by Interventional Radiology staff under my direct supervis ion. The patient's vital signs were monitored and remained stable throu ghout the procedure. Fluoroscopic time: 4 minutes Air Kerma: 79 mGy Local anesthetic: 2 mL of 1% lidocaine. Contrast: 35 mL of Isovue-300 administer ed intra-arterially and intravenously without complication. FINDINGS: A total of 8 angiogram and his togram sequences obtained throughout the procedure. Arterial anast omosis is patent. The entire fistula is dilated, with pseudoaneurysma l dilatation. Moderate to severe stenosis at and just beyond the v enous anastomosis. After angioplasty, there is improved flow thro ugh the venous anastomosis. IMPRESSION: Fistulogram with 10 mm ballo on angioplasty of the venous anastomosis and outflow vein. PATRICIA OLVERA MD Braeden Carlson PA-C IMG IR ORDERABLES documented in this encounter Visit Diagnoses Diagnosis ESRD (end stage renal disease) (H) End stage renal disease documented in this encounter Administered Medications Inactive Administered Medications - up to 3 most recent administrations Medication Order MAR Action Action Date Dose Rate Site 0.9% sodium chloride TABLE SOLN TABLE SOLN, 1,000 mL, CONTINUOUS PRN, li ne flush, Catheter prep table solution use as directed by provider., Starting on 10/02/19 at 0811, For 3 doses, Maximum total dose 3 liters., IR Intra-procedure dextrose 50 % injection 25-50 mL 25-50 mL, Intravenous, EVERY 15 MIN PRN, low blood sug ar, Administer over 1-5 Minutes, Starting on Tue10/02/19 at 0812, Use if have IV access, blood glucose less than 70 mg/dL and meet dose criteri a below: Dose if conscious and alert (or disorientated) and NPO = 25 mL Dose if u nconscious / not alert = 50 mL Vesicant. For ordered doses up to 25 g, give IV Pu sh undiluted. Give each 5g over 1 minute., IR Pre-procedure dextrose 50 % injection 25-50 mL 25-50 mL, Intravenous, EVERY 15 MIN PRN, low blood sug ar, Administer over 1-5 Minutes, Starting on Tue10/02/19 at 1207, Use if have IV access, blood glucose less than 70 mg/dL and meet dose criteri a below: Dose if conscious and alert (or disorientated) and NPO = 25 mL Dose if u nconscious / not alert = 50 mL Vesicant. For ordered doses up to 25 g, give IV Pu sh undiluted. Give each 5g over 1 minute., IR Post-procedure fentaNYL (PF) (SUBLIMAZE) injection 25-50 Given 10/02/2019 10:30 AM ADMINISTRATIVE LIAISON 25 mcg mcg 25-50 mcg, Intravenous, EVERY 5 MIN PRN, severe pain (7-10), If inadequate response may repeat 25 mcg IV slowly every 5 min PRN severe pain; when verbally requested by provider., Administer over 2 Minutes, Starting on Tue10/02/19 at 0837, Doses can be exceeded under direct oversight of patient by physician. For ordered IV doses 1-100 mcg give IV Push undiluted over a minimum of 3-5 minutes., IR Intra-procedure Given 10/02/2019 10:19 AM ADMINISTRATIVE LIAISON 25 mcg Given 10/02/2019 9:57 AM ADMINISTRATIVE LIAISON 50 mcg flumazenil (ROMAZICON) injection 0.2 mg 0.2 mg, Intravenous, EVERY 1 MIN PRN, benzodiazepine r eversal, If inadequate response after 45 seconds, may repeat 0. 2 mg IV every 1 minute PRN oversedation., Administer over 1 Minutes, Starting on 10/02/19 at 0837, Give over 15 seconds. Maximum total dose of 1 mg. Continue mon itoring until discharge criteria met for a minimum of 2 hours. Irritant. For ordered IV doses 0.1 -1 mg, give IV Push undiluted. Administer each 0.2mg over 15 seconds., IR Intra-procedure glucagon injection 1 mg 1 mg, Subcutaneous, EVERY 15 MIN PRN, low blood sugar, May repeat x 1 only, Starting on Tue10/02/19 at 0812, May gi ve subcutaneous or IM. ONLY use glucagon IF patient has NO IV access AND is UNABLE t o swallow AND blood glucose is LESS than or EQUAL to 50 mg/dL. If ordered IV, give I V Push over 1 minute. Reconstitute with 1mL sterile water., IR Pre-procedure glucagon injection 1 mg 1 mg, Subcutaneous, EVERY 15 MIN PRN, lo w blood sugar, Starting on Tue10/02/19 at 1207, Subcutaneous or IM. ONLY use glucagon IF patient has NO IV access AND is UNABLE to swallow AND blood glucose is L ESS than or EQUAL to 50 mg/dL. If ordered IV, give IV Push over 1 minute. Reconstitute with 1mL sterile water., IR Post-procedure glucose gel 15-30 g 15-30 g, Oral, EVERY 15 MIN PRN, low blo od sugar, Starting on Tue10/02/19 at 0812, Give 15 g for blood glucose 51 to 69 mg/dL IF patient is conscious and able to swallow. Give 30 g for blood glucose les s than or equal to 50 mg/dL IF patient is conscious and able to swallow. Do NOT gi ve glucose gel via enteral tube. IF patient has enteral tube: give apple juice 120 m L (4 oz or 15 g of CHO) via enteral tube for blood glucose 51 to 69 mg/dL. Give a pple juice 240 mL (8 oz or 30 g of CHO) via enteral tube for blood glucose less than or equal to 5 0 mg/dL. ~Oral gel is preferable for conscious and able to swallow patient. ~IF gel unavailable or patient refuses may provide apple juice 120 mL (4 oz o r 15 g of CHO). Document juice on I and O flowsheet., IR Pre-procedure glucose gel 15-30 g 15-30 g, Oral, EVERY 15 MIN PRN, low blo od sugar, Starting on Tue10/02/19 at 1207, Give 15 g for blood glucose 51 to 69 mg/dL IF patient is conscious and able to swallow. Give 30 g for blood glucose les s than or equal to 50 mg/dL IF patient is conscious and able to swallow. Do NOT gi ve glucose gel via enteral tube. IF patient has enteral tube: give apple juice 120 m L (4 oz or 15 g of CHO) via enteral tube for blood glucose 51 to 69 mg/dL. Give a pple juice 240 mL (8 oz or 30 g of CHO) via enteral tube for blood glucose less than or equal to 5 0 mg/dL. ~Oral gel is preferable for conscious and able to swallow patient. ~IF gel unavailable or patient refuses may provide apple juice 120 mL (4 oz o r 15 g of CHO). Document juice on Intake and Output flowsheet., IR Post-procedu re heparin (PRESSURE BAG) 2 unit/mL in 0.9% NaCl 1,000 Units 1,000 Units (500 mL), TABLE SOLN, CONTINUOUS PRN, othe r, Catheter prep table solution use as directed by provider., Starting on Tue10/02/19 at 0811, For 1 dose, IR Intra-procedure heparin 10,000 units in 1000 mL NS- for Angiograms 10,000 Units (1,000 mL), TABLE SOLN, CON TINUOUS PRN, Catheter prep table solution use as directed by provider., Starting on Tue10/02/19 at 0811, RN to release orders for the use of this heparin table solution for angiogram procedures. Maximum total dose 5 liters. FOR USE TABLE SO LUTION ONLY. NOT FOR IV OR IA INFUSION., IR Intra-procedure lidocaine (LMX4) cream Topical, EVERY 1 HOUR PRN, pain, with VA D insertion or accessing implanted port., Starting on Tue10/02/19 at 0812, Do NOT give if patient has a history of allergy to any local anesthetic or any anabell p roduct. Apply at least 30 minutes prior to VAD insertion or port access. MAX Dose: 2.5 g (?? of 5 g tube), IR Pre-procedure lidocaine 1 % 0.1-1 mL Given 10/02/2019 10:31 AM ADMINISTRATIVE LIAISON 1 mL 0.1-1 mL, Other, EVERY 1 HOUR PRN, mild pain with VAD insertion, Starting on Tue10/02/19 at 0812, Do NOT give if patient has a history of allergy to any local anesthetic or any anabell product. MAX dose 1 mL subcutaneous OR intradermal in divided doses as needed for VAD insertion., IR Pre-procedure lidocaine 1 % 1-30 mL 1-30 mL, Intradermal, ONCE PRN, local anesthetic. When verbally ordered by prescriber during the procedure., Starting on 09/10 at 0837, For 1 dose, Dose to be divided into smaller volumes appropriate for the procedure. Provider to administer intradermally. Dose to be div ided into smaller volumes appropriate for the procedure., IR Intra-procedure midazolam (VERSED) injection 0.5-2 mg Given 10/02/2019 10:30 AM ADMINISTRATIVE LIAISON 0.5 mg 0.5-2 mg, Intravenous, Administer over 1 Minutes, EVERY 4 MIN PRN, sedation, If inadequate response may repeat 0.5 mg IV slowly every 4 minutes PRN sedation until desired response; when verbally requested by provider., Starting on Tue10/02/19 at 0837, Doses can be exceeded under direct oversight of patient by physician. This drug may cause significant respiratory depression. Monitor respiratory status and vital signs carefully for 1 hour after each dose., IR Intra-procedure Given 10/02/2019 10:20 AM ADMINISTRATIVE LIAISON 0.5 mg Given 10/02/2019 9:58 AM ADMINISTRATIVE LIAISON 1 mg naloxone (NARCAN) injection 0.1-0.4 mg 0.1-0.4 mg, Intravenous, EVERY 2 MIN PRN , opioid reversal, Starting on Tue10/02/19 at 0837, For respiratory rate LESS than or EQUAL to 8. Partial reversal dose: 0.1 mg titrated q 2 minutes for Analgesia Si de Effects Monitoring Sedation Level of 3 (frequently drowsy, arousable, drifts to sleep during conversation).Full reversal dose: 0.4 mg bolus for Analgesia Side Effects Monitori ng Sedation Level of 4 (somnolent, minimal or no response to st imulation). For ordered IV doses 0.1-2mg give IVP. Give each 0.4mg over 15 second s in emergency situations. For non-emergent situations further dilute in 9mL of NS to facilitate t itration of response., IR Intra-procedure sodium chloride (PF) 0.9% PF flush 3 mL 3 mL, Intracatheter, EVERY 1 MIN PRN, li ne flush, Starting on Tue10/02/19 at 0812, for peripheral IV flush post IV meds, IR Pre-procedure sodium chloride (PF) 0.9% PF flush 3 mL 3 mL, Intracatheter, EVERY 8 HOURS, First dose on Tue10/02/19 at 0815, And Q1H PRN, to lock peripheral IV dormant line., IR Pre-proce dure Take other usual AM meds with small amou nt of water CONTINUOUS PRN, Starting on Tue10/02/19 at 0812, Until Tue10/02/19 at 1409, IR Pre-procedure documented in this encounter Active and Recently Administered Medications Times are shown in ADMINISTRATIVE LIAISON. Scheduled Medication Order 09/30/2019 10/01/2019 10/02/2019 sodium chloride (PF) 0.9% PF flush 3 mL 0815 (Canceled Entry - Provider: Orders Generic Provider - Comment: Automatically canceled at discontinue of medication order) 3 mL, Intracatheter, EVERY 8 HOURS, Firs t dose on Tue10/02/19 at 0815, And Q1H PRN, to lock peripheral IV dormant line., IR Pre-procedure PRN Medication Order 09/30/2019 10/01/2019 10/02/2019 0.9% sodium chloride TABLE SOLN TABLE SOLN, 1,000 mL, CONTINUOUS PRN, li ne flush, Catheter prep table solution use as directed by provider., Starting Tue10/02/19 at 0811, For 3 doses, Maximum total dose 3 liters., IR Intra-procedure dextrose 50 % injection 25-50 mL(Linked Group 1) 25-50 mL, Intravenous, EVERY 15 MIN PRN, low blood sugar, Administer over 1-5 Minutes, Starting Tue10/02/19 at 0812, Use if have IV access, blood glucose less than 70 mg/dL and meet dose criteria below : Dose if conscious and alert (or disori entated) and NPO = 25 mL Dose if unconscious / not alert = 50 mL Vesicant. For ordered doses up to 25 g, give IV Push undiluted. Give each 5g over 1 minute., IR Pre-procedure dextrose 50 % injection 25-50 mL(Linked Group 2) 25-50 mL, Intravenous, EVERY 15 MIN PRN, low blood sugar, Administer over 1-5 Minutes, Starting Tue10/02/19 at 1207, Use if have IV access, blood glucose less than 70 mg/dL and meet dose criteria below : Dose if conscious and alert (or disori entated) and NPO = 25 mL Dose if unconscious / not alert = 50 mL Vesicant. For ordered doses up to 25 g, give IV Push undiluted. Give each 5g over 1 minute., IR Post-procedure fentaNYL (PF) (SUBLIMAZE) injection 25-50 mcg 0957 (Given - Provider: Barbara Perez RN)1019 (Given - Provider: Barbara Perez, LINDA)1030 (Given - Provider: Barbara Perez, RN) 25-50 mcg, Intravenous, Administer over 2 Minutes, EVERY 5 MIN PRN, Starting Tue10/02/19 at 0837, severe pain, If inadequate response may repeat 25 mcg IV slowly every 5 min PRN severe pain; when verba lly requested by provider., Doses can be exceeded under direct oversight of patient by physician. For ordered IV doses 1-100 mcg give IV Push undiluted over a minimum of 3-5 minutes., IR Intra-procedure flumazenil (ROMAZICON) injection 0.2 mg 0.2 mg, Intravenous, EVERY 1 MIN PRN, be nzodiazepine reversal, If inadequate response after 45 seconds, may repeat 0.2 mg IV every 1 minute PRN oversedation., Administer over 1 Minutes, Starting Tue at 0837, Give over 15 seconds. Max imum total dose of 1 mg. Continue monitoring until discharge criteria met for a minimum of 2 hours. Irritant. For ordered IV doses 0.1-1 mg, give IV Push undilute d. Administer each 0.2mg over 15 seconds., IR Intra-procedure glucagon injection 1 mg(Linked Group 1) 1 mg, Subcutaneous, EVERY 15 MIN PRN, lo w blood sugar, May repeat x 1 only, Starting Tue10/02/19 at 0812, May give subcutaneous or IM. ONLY use glucagon IF patient has NO IV access AND is UNABLE to swa llow AND blood glucose is LESS than or E QUAL to 50 mg/dL. If ordered IV, give IV Push over 1 minute. Reconstitute with 1mL sterile water., IR Pre-procedure glucagon injection 1 mg(Linked Group 2) 1 mg, Subcutaneous, EVERY 15 MIN PRN, lo w blood sugar, Starting Tue10/02/19 at 1207, Subcutaneous or IM. ONLY use glucagon IF patient has NO IV access AND is UNABLE to swallow AND blood glucose is LESS than or EQUAL to 50 mg/dL. If ordered I V, give IV Push over 1 minute. Reconstitute with 1mL sterile water., IR Post-procedure glucose gel 15-30 g(Linked Group 1) 15-30 g, Oral, EVERY 15 MIN PRN, low blo od sugar, Starting Tue10/02/19 at 0812, Give 15 g for blood glucose 51 to 69 mg/dL IF patient is conscious and able to swallow. Give 30 g for blood glucose less than or equal to 50 mg/dL IF patient is conscious and able to swallow. Do NOT give glucose gel via enteral tube. IF patient has enteral tube: give apple juice 120 mL (4 oz or 15 g of CHO) via enteral tu be for blood glucose 51 to 69 mg/dL. Giv e apple juice 240 mL (8 oz or 30 g of CHO) via enteral tube for blood glucose less than or equal to 50 mg/dL. ~Oral gel is preferable for conscious and able to sw allow patient. ~IF gel unavailable or pa tient refuses may provide apple juice 120 mL (4 oz or 15 g of CHO). Document juice on I and O flowsheet., IR Pre-procedure glucose gel 15-30 g(Linked Group 2) 15-30 g, Oral, EVERY 15 MIN PRN, low blo od sugar, Starting Tue10/02/19 at 1207, Give 15 g for blood glucose 51 to 69 mg/dL IF patient is conscious and able to swallow. Give 30 g for blood glucose less than or equal to 50 mg/dL IF patient is conscious and able to swallow. Do NOT give glucose gel via enteral tube. IF patient has enteral tube: give apple juice 120 mL (4 oz or 15 g of CHO) via enteral tu be for blood glucose 51 to 69 mg/dL. Giv e apple juice 240 mL (8 oz or 30 g of CHO) via enteral tube for blood glucose less than or equal to 50 mg/dL. ~Oral gel is preferable for conscious and able to sw allow patient. ~IF gel unavailable or pa tient refuses may provide apple juice 120 mL (4 oz or 15 g of CHO). Document juice on Intake and Output flowsheet., IR Post-procedure heparin (PRESSURE BAG) 2 unit/mL in 0.9% NaCl 1,000 Units 1,000 Units (500 mL), TABLE SOLN, CONTIN UOUS PRN, other, Catheter prep table solution use as directed by provider., Starting Tue10/02/19 at 0811, For 1 dose, IR Intra-procedure heparin 10,000 units in 1000 mL NS- for Angiograms 10,000 Units (1,000 mL), TABLE SOLN, CON TINUOUS PRN, Catheter prep table solution use as directed by provider., Starting Tue10/02/19 at 0811, For 5 doses, RN to release orders for the use of this hepar in table solution for angiogram procedur es. Maximum total dose 5 liters. FOR USE TABLE SOLUTION ONLY. NOT FOR IV OR IA INFUSION., IR Intra-procedure lidocaine (LMX4) cream Topical, EVERY 1 HOUR PRN, pain, with VA D insertion or accessing implanted port., Starting Tue10/02/19 at 0812, Do NOT give if patient has a history of allergy to any local anesthetic or any anabell pr oduct. Apply at least 30 minutes prior t o VAD insertion or port access. MAX Dose: 2.5 g (?? of 5 g tube), IR Pre-procedure lidocaine 1 % 0.1-1 mL 1031 (Giv en - Provider: Barbara Perez RN) 0.1-1 mL, Other, EVERY 1 HOUR PRN, mild pain with VAD insertion, Starting Tue10/02/19 at 0812, Do NOT give if patient has a history of allergy to any local anesthetic or any anabell product. MAX dose 1 mL subcutaneous OR intradermal in divid ed doses as needed for VAD insertion., IR Pre-procedure lidocaine 1 % 1-30 mL 1-30 mL, Intradermal, ONCE PRN, local an esthetic. When verbally ordered by prescriber during the procedure., Starting Tue10/02/19 at 0837, For 1 dose, Dose to be divided into smaller volumes appropriat e for the procedure. Provider to adminis ter intradermally. Dose to be divided into smaller volumes appropriate for the procedure., IR Intra-procedure midazolam (VERSED) injection 0.5-2 mg 0958 (Given - Provider: Barbara Perez, LINDA)1020 (Given - Provider: Barbara Perez RN)1030 (Given - Provider: Barbara Perez RN) 0.5-2 mg, Intravenous, Administer over 1 Minutes, EVERY 4 MIN PRN, Starting Tue10/02/19 at 0837, sedation, If inadequate response may repeat 0.5 mg IV slowly every 4 minutes PRN sedation until desired response; when verbally requested by pro vider., Doses can be exceeded under direct oversight of patient by physician. This drug may cause significant respiratory depression. Monitor respiratory status a nd vital signs carefully for 1 hour after each dose., IR Intra-p rocedure naloxone (NARCAN) injection 0.1-0.4 mg 0.1-0.4 mg, Intravenous, EVERY 2 MIN PRN , opioid reversal, Starting Tue10/02/19 at 0837, For respiratory rate LESS than or EQUAL to 8. Partial reversal dose: 0.1 mg titrated q 2 minutes for Analgesia S bishop Effects Monitoring Sedation Level of 3 (frequently drowsy, arousable, drifts to sleep during conversation).Full reversal dose: 0.4 mg bolus for Analgesia Side Effects Monitoring Sedation Level of 4 (somnolent, minimal or no response to st imulation). For ordered IV doses 0.1-2mg give IVP. Give each 0.4mg over 15 seconds in emergency situations. For non- emergent situations further dilute in 9mL of N S to facilitate titration of response., IR Intra-procedure sodium chloride (PF) 0.9% PF flush 3 mL 3 mL, Intracatheter, EVERY 1 MIN PRN, li ne flush, Starting Tue10/02/19 at 0812, for peripheral IV flush post IV meds, IR Pre-procedure Take other usual AM meds with small amount of water CONTINUOUS PRN, Starting Tue10/02/19 at 0812, Until Tue10/02/19 at 1409, IR Pre-procedure Linked Groups Order Group 1: glucose gel 15-30 gJump to med 15-30 g, Oral, EVERY 15 MIN PRN, low blo od sugar, Starting Tue10/02/19 at 0812
Give 15 g for blood glucose 51 to 69 mg/dL IF patient is conscious and able to swallow. Give 30 g for blood gluco se less than or equal to 50 mg/dL IF pat ient is conscious and able to swallow. Do NOT give glucose gel via enteral tube. IF patient has enteral tube: give apple juice 120 mL (4 oz or 15 g of CHO) via enteral tube for blood glucose 51 to 69 mg/dL. Give apple juice 240 mL (8 oz or 30 g of CHO) via enteral tube for blood glucose less than or equal to 50 mg/dL.&nb sp; ~Oral gel is preferable for con scious and able to swallow patient. ~IF gel unavailable or patient refuses may provide apple juice 120 mL (4 oz or 15 g of CHO). Document juice on I and O flowsheet.
IR Pre-procedure Or dextrose 50 % injection 25-50 mLJump to med 25-50 mL, Intravenous, EVERY 15 MIN PRN, low blood sugar, Administer over 1-5 Minutes, Starting Tue10/02/19 at 0812
Use if have IV access, blood glucose less than 70 mg/dL and meet dose criter ia below: Dose if conscious and sivan rt (or disorientated) and NPO = 25 mL Dose if unconscious / not alert = 50 mL Vesicant. For ordered doses up to 25 g, give IV Push undiluted. Give each 5g over 1 minute.
IR Pre-procedure Or glucagon injection 1 mgJump to med 1 mg, Subcutaneous, EVERY 15 MIN PRN, lo w blood sugar, May repeat x 1 only, Starting Tue10/02/19 at 0812
May give subcutaneous or IM. ONLY use glucagon IF patient has NO IV access AND is UNABL E to swallow AND blood glucose is LESS t goode or EQUAL to 50 mg/dL. If ordered IV, give IV Push over 1 minute. Reconstitute with 1mL sterile water.
IR Pre-procedure Group 2: glucose gel 15-30 gJump to med 15-30 g, Oral, EVERY 15 MIN PRN, low blo od sugar, Starting Tue10/02/19 at 1207
Give 15 g for blood glucose 51 to 69 mg/dL IF patient is conscious and able to swallow. Give 30 g for blood gluco se less than or equal to 50 mg/dL IF pat ient is conscious and able to swallow. Do NOT give glucose gel via enteral tube. IF patient has enteral tube: give apple juice 120 mL (4 oz or 15 g of CHO) via enteral tube for blood glucose 51 to 69 mg/dL. Give apple juice 240 mL (8 oz or 30 g of CHO) via enteral tube for blood glucose less than or equal to 50 mg/dL.&nb sp; ~Oral gel is prefer able for conscious and able to swallow patient. ~IF gel unavailable or patient refuses may provide apple juice 120 mL (4 oz or 15 g of CHO). Document juice on Intake and Output aung wsheet.
IR Post-procedure Or dextrose 50 % injection 25-50 mLJump to med 25-50 mL, Intravenous, EVERY 15 MIN PRN, low blood sugar, Administer over 1-5 Minutes, Starting Tue10/02/19 at 1207
Use if have IV access, blood glucose less than 70 mg/dL and meet dose criter ia below: Dose if conscious and sivan rt (or disorientated) and NPO = 25 mL Dose if unconscious / not alert = 50 mL Vesicant. For ordered doses up to 25 g, give IV Push undiluted. Give each 5g over 1 minute.
IR Post-procedure Or glucagon injection 1 mgJump to med 1 mg, Subcutaneous, EVERY 15 MIN PRN, letitia w blood sugar, Starting Tue10/02/19 at 1207
Subcutaneous or IM. ONLY use glucagon IF patient has NO IV access AND is UNABLE to swallow AND blood glucose is LESS than or EQUAL to 50 mg/dL.&nbsp ;If ordered IV, give IV Push over 1 minute. Reconstitute with 1mL sterile water.
IR Post-procedure documented in this encounter Care Teams Account General Manager Relationship Specialty Start Date End Date Preet Huff PCP - General 06/24/11 documented as of this encounter
--- OUTSIDE RECORDS SUMMARY | 2022-09-01 20:11 | XMS_ITS | Encounter Summary ---
:1965 Author Organization [place] Address [facility] [place] [address] Care Team Providers Name Role Phone Preet Huff Primary Care Provider Reason for Visit Reason Onset Date Comments Covid 19 Testing 03/17/2020 Encounter Details Date Type Department Care Team Description 03/17/2020 Orders Only [facility] Wojciech Holman [facility] unter for Urgent Care [facility] screening for other [address] INTERMED viral diseases [place], [place] [facility] [id number] [address] [facility] [phone] [address] [place], [place] [id number] Social History Tobacco Use Types Packs/Day Years [...] / COVID-19? documented as of this encounter Progress Notes Emilia Herman MA - 03/17/2020 12:40 PM CDT COVID-19 PCR test completed. Patient handout For Patients Who Have Been Tested for Covid-19 (Coronavirus) was given to the patient, which includes test result notification process. documented in this encounter Plan of Treatment Not on filedocumented as of this encounter Procedures Procedure Name Priority Date/Time Associated Diagnosis Comme nts SARS-COV-2 Routine 03/17/2020 1:03 PM Encounter for Results for this (COVID-19) VIRUS CDT screening for other proc edure are in RT-PCR viral diseases the results section. COVID-19 VIRUS Routine 03/17/2020 1:03 PM Encounter for Result s for this (CORONAVIRUS) BY CDT screening for other proc edure are in PCR viral diseases the results section. documented in this encounter Results SARS-CoV-2 COVID-19 Virus (Coronavirus) RT-PCR Nasopharyngeal (03/17/2020 1:03 PM CDT) [facility] Method Time Signature SARS-CoV-2 Nasopharyngeal 03/17/2020 [facility] Virus 3:13 PM CDT General acute hospital SARS-CoV-2 NEGATIVE 03/17/2020 [facility] PCR Result 3:13 PM CDT [facility] Comment: SARS-CoV2 (COVID-19) RNA not de tected, presumed negative. SARS-CoV-2 PCR This automated, real-time RT -PCR assay by [employer] on the [employer] has 03/17/2020 3:13 PM [facility] [place] Comment been given Emergency Use Aut horization (EUA) for the in vitro qualitative detection of RNA CDT [facility] ER from the SARS-CoV2 virus in nasopharyngeal swabs in viral transport medium from patients [facility] with signs and symptoms of i nfection who are suspected of COVID-19. The performance is unknown in asymptomatic patients. Comment: Nasopharyngeal specimen is the preferred choice for swab-based SARS-CoV2 testing. Sample types other than nasopha ryngeal swabs were not included in the EUA. The test result from other sample types must be integrated into clinical context for interpretation. A negative result does not rule out the presence of real-time PCR inhibitors in the specimen or COVID-19 RNA in raven ntration below the limit of detection of the assay. The possibility of a false negative should be considered if the patients recent exposure or clinical pre sentation suggests COVID-19. Additional testing or repeat testing req uires consultation with the laboratory. Positive results should also be reported in accordance with local, state, and federal regulations. This test was valid ated by [facility]. This lab oratory is certified under the Clinical Laboratory Improvement Amendmen ts of 1988 (CLIA-88) as qualified to perform high complexity clinical laborat ory testing. Specimen (Source) Anatomical Collection Method Collection Time Re ceived Time Location / / Volume Laterality Specimen from 03/17/2020 1:03 03/17/2020 nasopharyngeal PM CDT 1:08 PM CDT structure (specimen) G Jagdeep Holman MD LAB - MICRO GENERAL ORDERABL ES Performing Organization Address City/State/ZIP Code Phon e Number [facility] [address] [place] [address] [facility] Asymptomatic COVID-19 Virus (Coronavirus) by PCR (03/17/2020 1:03 PM CDT) Component Value Ref Test Analysis Performed At [facility] Range Method Time Signature COVID-19 Nasopharyngeal 03/17/2020 [facility] Virus PCR to 1:08 PM CDT CLINICS U [facility] Source [facility] COVID-19 Test received-See 03/17/2020 INFECTIOUS Virus PCR to reflex to IDDL 2:16 PM CDT DISEASES U [facility] - test SARS CoV2 DIAGNOSTIC Result (COVID-19) Virus LABORATORY RT-PCR Specimen (Source) Anatomical Collection Method Collection Time Re ceived Time Location / / Volume Laterality Specimen from 03/17/2020 1:03 03/17/2020 nasopharyngeal PM CDT 1:08 PM CDT structure (specimen) G Jagdeep Holman MD LAB - MICRO GENERAL ORDERABL ES Performing Organization Address City/Special Care Hospital/ZIP Code Phon e Number INFECTIOUS DISEASES [address] [place] [address] DIAGNOSTIC LABORATORY, [facility] [address] [place] [address] [facility] INFECTIOUS DISEASES [address] [place] [address], A DIAGNOSTIC LABORATORY documented in this encounter Visit Diagnoses Diagnosis Encounter for screening for other viral diseases documented in this encounter Care Teams [employer] Remover Relationship Specialty Start Date End Date Preet Huff PCP - General 06/24/11 documented as of this encounter
--- OUTSIDE RECORDS SUMMARY | 2022-09-01 20:11 | XMS_ITS | Encounter Summary ---
:1965 Author Organization [place] Address [address] [facility]. [address] Care Team Providers Name Role Phone HuffPreet cool Primary Care Provider Reason for Referral Therapeutic Imaging/IR (Routine) - Closed Specialty Diagnoses / Procedures Referred By Contact Refer red To Contact Radiology. Diagnoses ESRD (end stage renal disease) (H) Wojciech Holman MD Rh Interventional Rad Procedures IR Dialysis Fistulogram Left [facility] [address] [place] [address] [address] [place] [address] Referral ID Status Reason Start Date Expiration Date Visits Requ ested Visits Authorized [id number] Closed 03/11/2020 03/11/2021 1 1 Encounter Details Date Type Department Care Team Description 03/18/2020 Hospital Encounter [facility] Ricky, ESRD (end stage [facility] [place] renal disease) (H) [address] [facility] [address] RADIOLOGIC [phone] [address] Social History Tobacco Use Types Packs/Day Years [...] / COVID-19? documented as of this encounter Last Filed Vital Signs Vital Sign Reading Time Taken Comments Blood Pressure 127/60 03/18/2020 10:36 AM CDT Pulse 62 03/18/2020 10:36 AM CDT Temperature 36.3 ??C (97.4 ??F) 03/18/2020 9:21 AM CDT Respiratory Rate 19 03/18/2020 10:36 AM CDT Oxygen Saturation 100% 03/18/2020 10:36 AM CDT Inhaled Oxygen Concentration - - Weight - - Height - - Body Mass Index - - documented in this encounter Discharge Instructions Discharge InstructionsSchBarbara porter RN - 03/18/2020 10:21 AM CDT After a Fistulagram - ?? If you go home with sheaths [...] feeling), call your doctor or dialysis clinic documented in this encounter Medications at Time [...] encounter Progress Notes Rima Mai RN - 03/11/2020 3:21 PM CDT Ordering Clinic: Dr. Holman, nephrology [place] [facility] Procedure: left femoral site fistulagram Arrival date: 03.18.2020 Arrival time: 0900 NPO explained: yes Does patient have transportation available pre and post procedure? yes Check-in procedure explained: yes Allergies reviewed: no Blood thinners: n/a Labs: see jorgeita notes H&P: See qi notes Does patient require magneto electrician? no If so, language? [employer] called to order magneto electrician? [employer] date requested: [employer] arrival time requested: Name of individual from magneto electrician services assisting with scheduling appointment: Previous sedation: Last oral intake: solid: Liquids: documented in this encounter Procedure Notes Clint Tariq MD - 03/18/2020 10:35 AM CDTAssociated Order(s): Left thigh AVF fistulogram and angioplasty [facility] Procedure: Left thigh AVF fistulogram and angioplasty Date/Time: 03/18/2020 10:34 AM Performed by: Clint Tariq MD Authorized by: Clint Tariq MD UNIVERSAL PROTOCOL Site Marked: NA Prior Images Obtained and Reviewed: Yes Required items: Required blood products, implants, devices and special equipment available Patient identity confirmed: Verbally with patient, arm band and provided demographic data Patient was reevaluated immediately before administering moderate or deep sedation or anesthesia Confirmation Checklist: Patient's identity using two indicators, relevant allergies, procedure was appropriate and matched the consent or emergent situation and correct equipment/implants were available Time out: Immediately prior to the procedure a time out was called Morse Protocol: the Joint Commission Morse Protocol was followed Preparation: Patient was prepped and draped in usual sterile fashion ESBL (mL): 10 ANESTHESIA Anesthesia: Local infiltration Local Anesthetic: Lidocaine 1% without epinephrine Anesthetic Total (mL): 1 SEDATION Patient Sedated: Yes Sedation Type: Moderate (conscious) sedation Sedation: Fentanyl, midazolam and see MAR for details Vital signs: Vital signs monitored during sedation See dictated procedure note for full details. PROCEDURE Patient Tolerance: Patient tolerated the procedure well with no immediate complications Describe Procedure: Recurrent venous anastomosis stenosis treated with 8 mm cutting and 10 mm high pressure PASTRY COOK. Length of time physician/provider present for 1:1 monitoring during sedation: 20 documented in this encounter Miscellaneous Notes Sedation Documentation - Barbara Perez RN - 03/18/2020 10:34 AM CDT Post Procedure Summary: Prior to the start [...] immediate complications. Time of sedation in minutes: 15 Minutes minutes from beginning to end of physician one to one monitoring. Pre-Procedure - Clint Tariq MD - 03/18/2020 9:11 AM CDT GENERAL PRE-PROCEDURE: Procedure: Fistulogram and intervention Date/Time: 03/18/2020 9:37 AM Verbal consent obtained?: Yes Written consent [...] disease, definite functional limitations Mallampati : Grade 2- soft palate, base of uvula, tonsillar pillars, and portion of posterior pharyngeal wall visible Lungs: Lungs clear with good breath sounds bilaterally Heart: Normal heart sounds and rate History & Physical reviewed: History and physical reviewed and no updates needed Statement of review: I have reviewed the lab findings, diagnostic data, medications, and the plan for sedation documented in this encounter Plan of Treatment Not on filedocumented as of this encounter Procedures Procedure Name Priority Date/Time Associated Comments Diagnosis IR DIALYSIS Routine 03/18/2020 10:43 ESRD (end stage Results for this FISTULOGRAM LEFT AM CDT renal disease) (H) proce dure are in the results section. IMAGING PROCEDURE Routine 03/18/2020 10:35 Result s for this NOTE AM CDT procedure are i n the results section. INR STAT 03/18/2020 9:56 AM ESRD (end stage Result s for this CDT renal disease) (H) procedure are in the results section. documented in this encounter Results IR Dialysis Fistulogram Left (03/18/2020 10:43 AM CDT) Anatomical Region Laterality Modality Upper Extremity Radio Fluoroscopy, R adio Fluoroscopy Specimen (Source) Anatomical Location Collection Method / Collectio n Time Received Time / Laterality Volume Addenda Addendum by Clint Tariq MD on 1:37 PM CDT Addendum: FLUOROSCOPIC TIME: 2.5 minutes. RADIATION DOSE: Air Kerma: 180 mGy. CLINT TARIQ MD Impressions 03/18/2020 1:51 PM CDT IMPRESSION: Recurrent venous anastomotic stricture successfully treated with cutting and high-pressure b alloon angioplasty to 10 mm diameter. CLINT TARIQ MD Narrative 03/18/2020 1:51 PM CDT INTERVENTIONAL RADIOLOGY DIALYSIS FISTULOGRAM LEFT 03/18/2020 10:43 AM HISTORY: Patient with end-stage renal di sease and long-standing left thigh fistula. Fistula with malfunction at recent dialysis. Fistulogram has been requested. COMPARISON: 10/02/2019 fistulogram PROCEDURE: Informed consent was obtained . The left thigh fistula was sterilely prepped and draped. A timeout was performed. Ultrasound evaluation and physical examination of t he side upper extremity was performed. After giving local anesthesia , a 21 gauge needle was used to puncture the fistula under ultrasound guidance, an image of this was saved, and a 0.018 inch wire advance d through this. The needle was then exchanged for a 5 [place] Citizen coaxial di lator. Contrast injections were given through this with digital tanya ging over the left lower extremity. Decision was made to proceed with percut aneous transluminal balloon angioplasty of the recurrent venous anas tomotic stenosis. A [place] Plus 0.018 inch wire was advanced into t he left external iliac vein. A 8 mm x 4 cm cutting balloon was advanced over the wire and inflated to 8 DAVID at the site of recurrent stenosis. It was then deflated and rotated 45 degrees and reinflated to 8 A TM for 30 seconds. The balloon was removed and over the 0.018 inch wire a 10 mm x 4 cm high pressure angioplasty balloon was advanced and inf lated to 20 DAVID for 2 minutes. During the inflation a reflux venogram w as performed to delineate the arterial anastomosis. The balloon was de flated and completion fistulogram from the thigh to the IVC wa s performed. The sheath was now removed and hemostasi s achieved with manual pressure. The patient appeared to tolera te the procedure well. FINDINGS: Initial ultrasound evaluation demonstrated good color flow without evidence of thrombus. Ultrasound demonstrated a widely patent arterial anastomosis. Permanent ultrasou nd images were saved. Physical exam demonstrated pulsatile left thigh f istula. The fistulogram demonstrated a patent ve nous outflow throughout the left thigh. There is recurrent high-grad e stenosis of the venous anastomosis. After cutting and high pres sure balloon angioplasty there was less than 20% residual stenosis with brisk flow of contrast through the fistula. No proximal thigh o r pelvic venous stenosis. Procedure Note Clint Tariq MD - 03/18/2020Format ting of this note might be different from the original. INTERVENTIONAL RADIOLOGY DIALYSIS FISTUL OGRAM LEFT 03/18/2020 10:43 AM HISTORY: Patient with end-stage renal di sease and long-standing left thigh fistula. Fistula with malfunction at recent dialysis. Fistulogram has been requested. COMPARISON: 10/02/2019 fistulogram PROCEDURE: Informed consent was obtained . The left thigh fistula was sterilely prepped and draped. A timeout was performed. Ultrasound evaluation and physical examination of t he side upper extremity was performed. After giving local anesthesia , a 21 gauge needle was used to puncture the fistula under ultrasound guidance, an image of this was saved, and a 0.018 inch wire advance d through this. The needle was then exchanged for a 5 [place] Citizen coaxial di lator. Contrast injections were given through this with digital tanya ging over the left lower extremity. Decision was made to proceed with percut aneous transluminal balloon angioplasty of the recurrent venous anas tomotic stenosis. A [place] Plus 0.018 inch wire was advanced into t he left external iliac vein. A 8 mm x 4 cm cutting balloon was advanced over the wire and inflated to 8 DAVID at the site of recurrent stenosis. It was then deflated and rotated 45 degrees and reinflated to 8 A TM for 30 seconds. The balloon was removed and over the 0.018 inch wire a 10 mm x 4 cm high pressure angioplasty balloon was advanced and inf lated to 20 DAVID for 2 minutes. During the inflation a reflux venogram w as performed to delineate the arterial anastomosis. The balloon was de flated and completion fistulogram from the thigh to the IVC wa s performed. The sheath was now removed and hemostasi s achieved with manual pressure. The patient appeared to tolera te the procedure well. FINDINGS: Initial ultrasound evaluation demonstrated good color flow without evidence of thrombus. Ultrasound demonstrated a widely patent arterial anastomosis. Permanent ultrasou nd images were saved. Physical exam demonstrated pulsatile left thigh f istula. The fistulogram demonstrated a patent ve nous outflow throughout the left thigh. There is recurrent high-grad e stenosis of the venous anastomosis. After cutting and high pres sure balloon angioplasty there was less than 20% residual stenosis with brisk flow of contrast through the fistula. No proximal thigh o r pelvic venous stenosis. IMPRESSION: Recurrent venous anastomotic stricture successfully treated with cutting and high-pressure b alloon angioplasty to 10 mm diameter. CLINT TARIQ MD G Jagdeep Holman MD IMG IR ORDERABLES Left thigh AVF fistulogram and angioplasty (03/18/2020 10:35 AM CDT) Narrative Clint Tariq MD - 03/18/2020 10:35 AM CDT Clint Tariq MD ? 03/18/2020 10:[address] [facility] Procedure: Left thigh AVF fistulogram an d angioplasty Date/Time: 03/18/2020 10:34 AM Performed by: Clint Tariq MD Authorized by: Clint Tariq MD UNIVERSAL PROTOCOL Site Marked: NA Prior Images Obtained and Reviewed: ??Ye s Required items: Required blood products, implants, devices and special equipment available ?? Patient identity confirmed: ??Verbally w ith patient, arm band and provided demographic data Patient was reevaluated immediately befo re administering moderate or deep sedation or anesthesia Confirmation Checklist: ??Patient's iden tity using two indicators, relevant allergies, procedure was appropriate and matched the consent or emergent situation and correct equipment/implants were available Time out: Immediately prior to the proce dure a time out was called ?? Morse Protocol: the Joint Commission Morse Protocol was followed ?? Preparation: Patient was prepped and grazyna ped in usual sterile fashion ?? ESBL (mL): ??10 ANESTHESIA Anesthesia: Local infiltration Local Anesthetic: ??Lidocaine 1% without epinephrine Anesthetic Total (mL): ??1 SEDATION Patient Sedated: Yes ?? Sedation Type: ??Moderate (conscious) se dation Sedation: ??Fentanyl, midazolam and see MAR for details Vital signs: Vital signs monitored durin g sedation ?? See dictated procedure note for full det ails. PROCEDURE Patient Tolerance: ??Patient tolerated t he procedure well with no immediate complications Describe Procedure: Recurrent venous eneida stomosis stenosis treated with 8 mm cutting and 10 mm high pressure PASTRY COOK. Length of time physician/provider presen t for 1:1 monitoring during sedation: 20 Clint Tariq MD PROCEDURE/MINOR SURGICAL ORD ERABLES (ABNORMAL) INR (03/18/2020 9:56 AM CDT) P athologist Signature INR 2.97 (H) 0.86 - 1.14 03/18/2020 [place] 11:45 AM CDT [facility] Specimen Anatomical Collection Method Collection Time Receive d Time (Source) Location / / Volume Laterality Blood specimen 03/18/2020 9:56 AM 020 (specimen) CDT 11:35 AM CDT Clint Tariq MD LAB - BLOOD ORDERABLES Performing Organization Address City/State/ZIP Code Phon e Number [place] [address] [address] [address] [place] [address] [phone] documented in this encounter Visit Diagnoses Diagnosis ESRD (end stage renal disease) (H) End stage renal disease documented in this encounter Administered Medications Inactive Administered Medications - up to 3 most recent administrations Medication Order MAR Action Action Date Dose Rate Site dextrose 50 % injection 25-50 mL 25-50 mL, Intravenous, EVERY 15 MIN PRN, low blood sug ar, Administer over 1-5 Minutes, Starting on Tue03/18/20 at 1122, Use if have IV access, blood glucose less than 70 mg/dL and meet dose criteria below: Dose if co nscious and alert (or disorientated) and NPO = 25 mL Dose if u nconscious / not alert = 50 mL Vesicant. For ordered doses up to 25 g, give IV Pu sh undiluted. Give each 5g over 1 minute., IR Pre-procedure fentaNYL (PF) (SUBLIMAZE) injection 25-50 Given 03/18/2020 10:16 AM CDT 25 mcg mcg 25-50 mcg, Intravenous, EVERY 5 MIN PRN, severe pain (7-10), If inadequate response may repeat 25 mcg IV slowly every 5 min PRN severe pain; when verbally requested by provider., Administer over 2 Minutes, Starting on Tue03/18/20 at 0911, Doses can be exceeded under direct oversight [...] oversedation., Administer over 1 Minutes, Starting on 03/18/20 at 0911, Give over 15 seconds. Maximum total dose [...] May repeat x 1 only, Starting on Tue03/18/20 at 1122, May give subcutaneous or IM. ONLY use glucagon IF patient has NO IV access AND is UNABLE t o swallow AND blood glucose is LESS than or EQUAL to 50 mg/dL. If ordered IV, give I V Push over 1 minute. Reconstitute with 1mL sterile water., IR Pre-procedure glucose gel 15-30 g 15-30 g, Oral, EVERY 15 MIN PRN, low blo od sugar, Starting on Tue03/18/20 at 1122, Give 15 g for blood glucose 51 [...] on I and O flowsheet., IR Pre-procedure heparin (PRESSURE BAG) 2 Units/mL 0.9% N aCl (1000 mL) 1 Bag, TABLE SOLN, CONTINUOUS PRN, Paz ter prep table solution use as directed by provider., Starting on Tue03/18/20 at 091 1, For 10 doses, Maximum total dose 10 bags = 5000 mL liters.,Nurse will document to myles number of bags used at the end of the procedure. NOT A PRESSURE BAG, IR Intra-procedure heparin (PRESSURE BAG) 2 Units/mL 0.9% N aCl (1000 mL) 1 Bag, TABLE SOLN, CONTINUOUS PRN, Paz ter prep table solution use as directed by provider., Starting on Tue03/18/20 at 093 8, For 10 doses, Maximum total dose 10 bag s= 5000 mL. Nurse will document total do se number of bags used at the end of the procedure. NOT A PRESSURE BAG, IR Intra-procedure lidocaine (LMX4) cream Topical, EVERY 1 HOUR PRN, pain, with VA D insertion or accessing implanted port., Starting on Tue03/18/20 at 1122, Do NOT g bill if patient has a history of allergy to any local anesthetic or any anabell prod uct. Apply at least 30 minutes prior to VAD insertion or port access. MAX Dose: 2.5 g (?? of 5 g t ube), IR Pre-procedure lidocaine 1 % 0.1-1 mL 0.1-1 mL, Other, EVERY 1 HOUR PRN, mild pain with VAD insertion, Starting on Tue03/18/20 at 1122, Do NOT give if patient has a history o f allergy to any local anesthetic or any anabell product. MAX dose 1 mL subcu taneous OR intradermal in divided doses as needed for VAD insertion., IR Pre-pro cedure lidocaine 1 % 1-30 mL Given 03/18/2020 10:33 AM CDT 1 mL 1-30 mL, Intradermal, ONCE PRN, local anesthetic. When verbally ordered by prescriber during the procedure., Starting on Tue03/18/20 at 0911, For 1 dose, Dose to be divided into smaller volumes appropriate for the procedure. Provider to administer intradermally. Dose to be divided into smaller volumes appropriate for the procedure., IR Intra-procedure midazolam (VERSED) injection 0.5-2 mg Given 03/18/2020 10:14 AM CDT 0.5 mg 0.5-2 mg, Intravenous, Administer over 1 Minutes, EVERY 4 MIN PRN, sedation, If inadequate response may repeat 0.5 mg IV slowly every 4 minutes PRN sedation until desired response; when verbally requested by provider., Starting on Tue03/18/20 at 0911, Doses can be exceeded under direct oversight of patient by physician. This drug may cause significant respiratory depression. Monitor respiratory status and vital signs carefully for 1 hour after each dose., IR Intra-procedure naloxone (NARCAN) injection 0.1-0.4 mg 0.1-0.4 mg, Intravenous, EVERY 2 MIN PRN , opioid reversal, Starting on Tue03/18/20 at 0911, For respiratory rate LESS than or EQUAL [...] MIN PRN, li ne flush, Starting on Tue03/18/20 at 1122, for peripheral IV flush post IV meds, IR Pre-procedure sodium chloride (PF) 0.9% PF flush 3 mL 3 mL, Intracatheter, EVERY 8 HOURS, Firs t dose on Tue03/18/20 at 1130, And Q1H PRN, to lock peripheral IV dormant line., IR Pre-procedure Take other usual AM meds with small amou nt of water CONTINUOUS PRN, Starting on Tue03/18/20 at 1122, Until Tue03/19/20 at 1037, IR Pre-procedure documented in this encounter Active and Recently Administered Medications Times are shown in CDT. Scheduled Medication Order 03/16/2020 03/17/2020 03/18/2020 sodium chloride (PF) 0.9% PF flush 3 mL 1130 (Canceled Entry - Provider: Orders Generic Provider - Comment: Automatically canceled at discontinue of medication order)1930 (Canceled Entry - Provider: Orders Generic Provider - Comment: Automatically canceled at discont 3 mL, Intracatheter, EVERY 8 HOURS, Firs t dose on Tue03/18/20 at 1130, And Q1H PRN, to lock peripheral IV dormant line., IR Pre-procedure inue of medication order) PRN Medication Order 03/16/2020 03/17/2020 03/18/2020 dextrose 50 % injection 25-50 mL(Linked Group 1) 25-50 mL, Intravenous, EVERY 15 MIN PRN, low blood sugar, Administer over 1-5 Minutes, Starting Tue03/18/20 at 1122, Use if have IV access, blood glucose less than 70 mg/dL and meet dose criteria below: Dose if conscious and alert (or disorien tated) and NPO = 25 mL Dose if unconscious / not alert = 50 mL Vesicant. For ordered doses up to 25 g, give IV Push undiluted. Give each 5g over 1 minute., IR Pre-procedure fentaNYL (PF) (SUBLIMAZE) injection 25-50 mcg 1016 (Given - Provider: Barbara Perez RN) 25-50 mcg, Intravenous, EVERY 5 MIN PRN, severe pain, If inadequate response may repeat 25 mcg IV slowly every 5 min PRN severe pain; when verbally requested by provider., Administer over 2 Minutes, Sta rting Tue03/18/20 at 0911, Doses can be e xceeded under direct oversight of patient by physician. For ordered IV doses 1-100 mcg give IV Push undiluted over a minimum of 3-5 minutes., IR Intra-procedure flumazenil (ROMAZICON) injection 0.2 mg 0.2 mg, Intravenous, EVERY 1 MIN PRN, be nzodiazepine reversal, If inadequate response after 45 seconds, may repeat 0.2 mg IV every 1 minute PRN oversedation., Administer over 1 Minutes, Starting 03/18 at 0911, Give over 15 seconds. Maxim um total dose of 1 mg. Continue monitoring until discharge criteria met for a minimum of 2 hours. Irritant. For ordered IV doses 0.1-1 mg, give IV Push undiluted. Administer each 0.2mg over 15 seconds., IR Intra-procedure glucagon injection 1 mg(Linked Group 1) 1 mg, Subcutaneous, EVERY 15 MIN PRN, lo w blood sugar, May repeat x 1 only, Starting Tue03/18/20 at 1122, May give subcutaneous or IM. ONLY use glucagon IF patient has NO IV access AND is UNABLE to swall ow AND blood glucose is LESS than or EQU AL to 50 mg/dL. If ordered IV, give IV Push over 1 minute. Reconstitute with 1mL sterile water., IR Pre-procedure glucose gel 15-30 g(Linked Group 1) 15-30 g, Oral, EVERY 15 MIN PRN, low blo od sugar, Starting Tue03/18/20 at 1122, Give 15 g for blood glucose 51 to 69 mg/dL IF patient is conscious and able to swallow. Give 30 g for blood glucose less th an or equal to 50 mg/dL IF patient is co nscious and able to swallow. Do NOT give [...] is preferable for conscious and able to swal low patient. ~IF gel unavailable or ricardo ent refuses may provide apple juice 120 mL (4 oz or 15 g of CHO). Document juice on I and O flowsheet., IR Pre-procedure heparin (PRESSURE BAG) 2 Units/mL 0.9% NaCl (1000 mL) 1 Bag, TABLE SOLN, CONTINUOUS PRN, Paz ter prep table solution use as directed by provider., Starting Tue03/18/20 at 0911, For 10 doses, Maximum total dose 10 bags = 5000 mL liters.,Nurse will document total number of bags used at the end of the procedure. NOT A PRESSURE BAG, IR Intra-procedure heparin (PRESSURE BAG) 2 Units/mL 0.9% NaCl (1000 mL) 1 Bag, TABLE SOLN, CONTINUOUS PRN, Paz ter prep table solution use as directed by provider., Starting Tue03/18/20 at 0938, For 10 doses, Maximum total dose 10 bag s= 5000 mL. Nurse will document total d ose number of bags used at the end of e procedure. NOT A PRESSURE BAG, IR Intra-procedure lidocaine (LMX4) cream Topical, EVERY 1 HOUR PRN, pain, with VA D insertion or accessing implanted port., Starting Tue03/18/20 at 1122, Do NOT give if patient has a history of allergy to any local anesthetic or any anabell prod uct. Apply at least 30 minutes prior to VAD insertion or port access. MAX Dose: 2.5 g (?? of 5 g tube), IR Pre-procedure lidocaine 1 % 0.1-1 mL 0.1-1 mL, Other, EVERY 1 HOUR PRN, mild pain with VAD insertion, Starting Tue03/18/20 at 1122, Do NOT give if patient has a history of allergy to any local anesthetic or any anabell product. MAX dose 1 m L subcutaneous OR intradermal in divided doses as needed for VAD insertion., IR Pre-procedure lidocaine 1 % 1-30 mL (COMPLETED) 1033 (Given - Provider: Barbara Perez, LINDA) 1-30 mL, Intradermal, ONCE PRN, local an esthetic. When verbally ordered by prescriber during the procedure., Starting Tue03/18/20 at 0911, For 1 dose, Dose to be divided into smaller volumes appropriate for the procedure. Provider to administe r intradermally. Dose to be divided into smaller volumes appropriate for the procedure., IR Intra-procedure midazolam (VERSED) injection 0.5-2 mg 1014 (Given - Provider: Barbara Perez RN) 0.5-2 mg, Intravenous, Administer over 1 Minutes, EVERY 4 MIN PRN, sedation, If inadequate response may repeat 0.5 mg IV slowly every 4 minutes PRN sedation until desired response; when verbally request ed by provider., Starting Tue03/18/20 at 0911, Doses can be exceeded under direct oversight of patient by physician. This drug may cause significant respiratory depression. Monitor respiratory status and vital signs carefully for 1 hour after each dose., IR Intra-pro cedure naloxone (NARCAN) injection 0.1-0.4 mg 0.1-0.4 mg, Intravenous, EVERY 2 MIN PRN , opioid reversal, Starting Tue03/18/20 at 0911, For respiratory rate LESS than or EQUAL to 8. Partial reversal dose: 0.1 mg titrated q 2 minutes for Analgesia Augusto e Effects Monitoring Sedation Level of 3 (frequently drowsy, arousable, drifts to sleep during conversation).Full reversal dose: 0.4 mg bolus for Analgesia Side Effects Monitoring Sedation Level of 4 (s omnolent, minimal or no response to stim ulation). For ordered IV doses 0.1-2mg give IVP. Give each 0.4mg over 15 seconds in emergency situations. For non- emergent situations further dilute in 9mL of NS to facilitate titration of response., IR Intra-procedure sodium chloride (PF) 0.9% PF flush 3 mL 3 mL, Intracatheter, EVERY 1 MIN PRN, li ne flush, Starting Tue03/18/20 at 1122, for peripheral IV flush post IV meds, IR Pre-procedure Take other usual AM meds with small amount of water CONTINUOUS PRN, Starting Tue03/18/20 at 1 122, Until Tue03/19/20 at 1037, IR Pre-procedure Linked Groups Order Group 1: glucose gel 15-30 gJump to med 15-30 g, Oral, EVERY 15 MIN PRN, low blo od sugar, Starting Tue03/18/20 at 1122
Give 15 g for blood glucose 51 to 69 mg/dL IF patient is conscious and able to swallow. Give 30 g for blood glucose less than or equal to 50 mg/dL IF patie nt is conscious and able to swallow. Do NOT give glucose gel via enteral tube. IF patient has enteral tube: give apple juice 120 mL (4 oz or 15 g of CHO) via enteral tube for blood gl ucose 51 to 69 mg/dL. Give apple juice 240 mL (8 oz or 30 g of CHO) via enteral tube for blood glucose less than or equal to 50 mg/dL.&nbsp ; ~Oral gel is preferable for consc ious and able to swallow patient. ~IF gel unavailable or patient refuses may provide apple juice 120 mL (4 oz or 15 g of CHO). Document juice on I and O flowsheet.
IR Pre-procedure Or dextrose 50 % injection 25-50 mLJump to med 25-50 mL, Intravenous, EVERY 15 MIN PRN, low blood sugar, Administer over 1-5 Minutes, Starting 03/18/20 at 1122
Use if have IV access, blood glucose less than 70 mg/dL and meet dose criteria below: Dose if conscious and alert (or [...] sugar, May repeat x 1 only, Starting 03/18/20 at 1122
May give subcutaneous or IM. ONLY use glucagon IF patient has NO IV access AND is UNABLE to swallow AND blood glucose is LESS mayela n or EQUAL to 50 mg/dL. If ordered IV, give IV Push over 1 minute. Reconstitute with 1mL sterile water.
IR Pre-procedure documented in this encounter Care Teams Quality Assurance Intern Relationship Specialty Start Date End Date Preet Huff PCP - General 06/24/11 documented as of this encounter
--- OUTSIDE RECORDS SUMMARY | 2022-09-01 20:11 | XMS_ITS | Encounter Summary ---
:1965 Author Organization [place] Address [address] [facility] [place] [address] Care Team Providers Name Role Phone Preet Huff Primary Care Provider Encounter Details Date Type Department Care Team Description 02/01/2022 Orders Only [facility] Mamadou Stylesnter for Interventional Radio logy María Elena López PA-C screening for other [address] [place] [address] CONSULTANTS (Primary Dx) [phone] [id number] [place] [id number] Social History Tobacco Use Types Packs/Day Years Used Date Smoking Tobacco: Never Smokeless Tobacco: Never Alcohol Use Standard Drinks/Week Comments No 0 (1 standard drink = 0.6 oz pure alcoho l) Sex Assigned at Date Recorded Not on file documented as of this encounter Plan of Treatment Scheduled Orders Name Type Priority Associated Diagnoses Order S chedule Asymptomatic COVID-19 Lab Routine Encounter for tila guerra Expected: 02/01/2022 Virus (Coronavirus) by PCR for other sil l diseases (Approximate), Expires: 2022 documented as of this encounter Visit Diagnoses Diagnosis Encounter for screening for other viral diseases - Primary documented in this encounter Care Teams Fish Bait Picker Relationship Specialty Start Date End Date Preet Huff PCP - General 06/24/11 documented as of this encounter
--- OUTSIDE RECORDS SUMMARY | 2022-09-01 20:11 | XMS_ITS | Encounter Summary ---
:1965 Author Organization [place] Address [address] [place] [address] Care Team Providers Name Role Phone Preet Huff Primary Care Provider Reason for Referral Therapeutic Imaging/IR (Routine) - Closed Specialty Diagnoses / Procedures Referred By Contact Refer red To Contact Diagnoses ESRD (end stage renal disease) (H) María Elena Styles, Procedures IR Dialysis Fistulogram Left [facility] [address] [place] [address] Referral ID Status Reason Start Date Expiration Date Visits Requ ested Visits Authorized [id number] Closed 02/01/2022 02/01/2023 1 1 Encounter Details Date Type Department Care Team Description 02/11/2022 Hospital Encounter [facility], ESRD (end stage [place] Wait Staff Damion Luis renal disease) (H) [address] [place], [place] RADIOLOGY [id number] [phone] [place] [address] Social History Tobacco Use Types Packs/Day Years [...] have Coronavirus/COVID-19? 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 Don???t bend or use your arm until after dialysis. For the first 24 hours, keep the arm raised on pillows as much as you can. This reduces swelling. If you have bleeding or swelling at the puncture site, use your fingertip to put gentle pressure on the area. Do this until the bleeding stops or the swelling goes down. If you lose the pulse in your [...] documented as of this encounter Progress Notes Zuleyka Knapp RN - 02/11/2022 12:18 PM CDT Post Procedure Summary: Prior to the [...] end of physician one to one monitoring. Izabel Dahl - 02/01/2022 12:10 PM CDT Ordering Clinic: [facility] procedure #: Procedure: Left fistulagram/graft Reason for procedure: increase pressures, dark blood return from arterial Arrival date: 02/11/22 Arrival time: 0900 Covid-19 testing requirements explained: qi bonds 02/08/22 NPO explained: y Does patient have transportation available pre and post procedure? y Check-in procedure explained: y Allergies reviewed: y Blood thinners: coumadin Labs: december 2021 Results: H&P: 01/29/22 [facility] H&P requested?: Letter sent/email?: Does patient require platform man/language? PMH: documented in this encounter Miscellaneous Notes Pre-Procedure - Chuckie Damionjorge Smith - 02/11/2022 11:10 AM CDT GENERAL PRE-PROCEDURE: Date/Time: 02/11/2022 11:10 AM Verbal consent obtained?: Yes Written consent obtained?: Yes Risks and benefits: Risks, benefits and alternatives were discussed Consent given by: Patient Patient states understanding of procedure being performed: Yes Patient's understanding of procedure matches consent: Yes Procedure consent matches procedure scheduled: Yes Expected level of sedation: Moderate Appropriately NPO: Yes ASA Class: 2 Mallampati : Grade 2- soft palate, base of uvula, tonsillar pillars, and portion of posterior pharyngeal wall visible Lungs: Lungs clear with good breath sounds bilaterally Heart: Normal heart sounds and rate History & Physical reviewed: History and physical reviewed and no updates needed Statement of review: I have reviewed the lab findings, diagnostic data, medications, and the plan for sedation Pre-Procedure - Damion Noguera - 02/11/2022 9:54 AM CDT GENERAL PRE-PROCEDURE: Written consent obtained?: Yes Risks and benefits: Risks, benefits and alternatives were discussed Consent given by: Patient Patient states understanding of procedure being performed: Yes Patient's understanding of procedure matches consent: Yes Procedure consent matches procedure scheduled: Yes Expected level of sedation: Moderate Appropriately NPO: Yes ASA Class: 2 Mallampati : Grade 3- soft palate visible, [...] Priority Date/Time Associated Comments Diagnosis IR DIALYSIS FISTULOGRAM Routine 02/11/2022 12:39 ESRD (end sta ge Results for this LEFT PM CDT renal disease) (H) procedure are in the results section. INR STAT 02/11/2022 9:36 AM Results f or this CDT procedure are i n the results section. PARTIAL THROMBOPLASTIN STAT 02/11/2022 9:36 AM Results for this TIME CDT procedure are i n the results section. documented in this encounter Results IR Dialysis Fistulogram Left (02/11/2022 12:39 PM CDT) Anatomical Region Laterality Modality Upper Extremity Radio Fluoroscopy, R adio Fluoroscopy Specimen (Source) Anatomical Location Collection Method / Collectio n Time Received Time / Laterality Volume Impressions 02/11/2022 4:23 PM CDT IMPRESSION: 1. ??Patent left superficial femoral to common femoral vein straight graft. Focal stenosis at the venous anas tomosis. 2. ??Successful angioplasty of the venou s anastomosis with resolution of the stenosis. DAMION NOGUERA MD Narrative 02/11/2022 4:23 PM CDT [facility] LOCATION: [facility] DATE: 02/11/2022 1. DIALYSIS FISTULOGRAM. 2. 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 3. MODERATE SEDATION 4. ULTRASOUND GUIDED VASCULAR ACCESS INDICATION: 56-year-old male with left g roin loop graft presents for fistulogram and possible intervention du e to prolonged bleeding following dialysis. FLUOROSCOPIC TIME: 3.7 mins. DOSE: Air Kerma: 69 mGy. CONTRAST: 35 mL Omnipaque 300. SEDATION: Prior to the procedure, the pa tient was alert and oriented. Versed 1.5 mg and fentanyl 75 mcg were a dministered intravenously with continuous vital signs monitoring by the radiology nurse under my direct supervision. Patient was alert an d oriented post procedure. Total face to face moderate sedation vlad e: 26 minutes. PROCEDURE: After obtaining informed writ ten oral consent, the patient's arm was prepped and draped in a sterile fashion. Prior to the procedure, patency of the graft was assessed with ultrasound and sonographic images recorded.Local anesth esia was infiltrated in the soft tissues of the left groin. Using a 21 gauge needle and real-time ultrasound guidance, the graft was punct ured and a guidewire advanced. 6 [place] sheath was placed. Fistulogram was obtained from the arterial anastomosis to the inferior vena cava. A 8 mm cutting balloon was inserted and balloon angioplasty perform ed of the venous anastomosis of the graft. The venous anastomosis was dilated using a 10 mm high pressure balloon. Finally the venous eneida stomosis was dilated using a 9 mm drug coated balloon. Final fistulogram was obtained. Catheter and sheath were removed and hemostasis was obtained manually. FINDINGS: FISTULOGRAM: Patent left superficial fem oral to common femoral vein straight graft. Arterial anastomosis wid leelee patent. Focal stenosis at the venous anastomosis. PERIPHERAL SEGMENT NETWORK DESIGNER: Angioplasty of t he venous anastomosis was performed using 8 mm cutting balloon, 10 mm high-pressure balloon and a 9 mm drug coated balloon. Follow-up fi stulogram demonstrated resolution of the stenosis. Procedure Note Damion Noguera - 02/11/2022Fo rmatting of this note might be different from the original. [facility] LOCATION: [facility] DATE: 02/11/2022 1. DIALYSIS FISTULOGRAM. 2. 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 3. MODERATE SEDATION 4. ULTRASOUND GUIDED VASCULAR ACCESS INDICATION: 56-year-old male with left g roin loop graft presents for fistulogram and possible intervention du e to prolonged bleeding following dialysis. FLUOROSCOPIC TIME: 3.7 mins. DOSE: Air Kerma: 69 mGy. CONTRAST: 35 mL Omnipaque 300. SEDATION: Prior to the procedure, the pa tient was alert and oriented. Versed 1.5 mg and fentanyl 75 mcg were a dministered intravenously with continuous vital signs monitoring by the radiology nurse under my direct supervision. Patient was alert an d oriented post procedure. Total face to face moderate sedation vlad e: 26 minutes. PROCEDURE: After obtaining informed writ ten oral consent, the patient's arm was prepped and draped in a sterile fashion. Prior to the procedure, patency of the graft was assessed with ultrasound and sonographic images recorded.Local anesth esia was infiltrated in the soft tissues of the left groin. Using a 21 gauge needle and real-time ultrasound guidance, the graft was punct ured and a guidewire advanced. 6 [place] sheath was placed. Fistulogram was obtained from the arterial anastomosis to the inferior vena cava. A 8 mm cutting balloon was inserted and balloon angioplasty perform ed of the venous anastomosis of the graft. The venous anastomosis was dilated using a 10 mm high pressure balloon. Finally the venous eneida stomosis was dilated using a 9 mm drug coated balloon. Final fistulogram was obtained. Catheter and sheath were removed and hemostasis was obtained manually. FINDINGS: FISTULOGRAM: Patent left superficial fem oral to common femoral vein straight graft. Arterial anastomosis wid leelee patent. Focal stenosis at the venous anastomosis. PERIPHERAL SEGMENT NETWORK DESIGNER: Angioplasty of t he venous anastomosis was performed using 8 mm cutting balloon, 10 mm high-pressure balloon and a 9 mm drug coated balloon. Follow-up fi stulogram demonstrated resolution of the stenosis. IMPRESSION: 1. Patent left superficial femoral to co mmon femoral vein straight graft. Focal stenosis at the venous anas tomosis. 2. Successful angioplasty of the venous anastomosis with resolution of the stenosis. DAMION NOGUERA MD María Elena Styles PA-C [facility] IR ORDERABLES (ABNORMAL) Partial thromboplastin time (02/11/2022 9:36 AM CDT) P athologist Signature aPTT 39 (H) 22 - 38 02/11/2022 [facility] Seconds 9:53 AM CDT Specimen Anatomical Collection Method / Collection Time Recei ten Time (Source) Location / Volume Laterality Blood BLOOD SPECIMEN / Venipuncture / 02/11/2022 9:36 2021 9:38 Unknown Unknown AM CDT AM CDT Damion Noguera LAB - BLOOD ORDERABLES Performing Organization Address City/State/ZIP [place] [phone] [facility] [address] Lab (1st floor, no room number) (ABNORMAL) INR (02/11/2022 9:36 AM CDT) P athologist Signature INR 2.50 (H) 0.85 - 1.15 02/11/2022 [facility] 9:52 AM CDT Specimen Anatomical Collection Method / Collection Time Recei ten Time (Source) Location / Volume Laterality Blood BLOOD SPECIMEN / Venipuncture / 02/11/2022 9:36 2021 9:38 Unknown Unknown AM CDT AM CDT Damion Noguera LAB - BLOOD ORDERABLES Performing Organization Address City/State/ZIP [place] [phone] [facility] [address] Lab (1st floor, no room number) documented in this encounter Visit Diagnoses Diagnosis ESRD (end stage renal disease) (H) End stage renal disease documented in this encounter Administered Medications Inactive Administered Medications - up to 3 most recent administrations Medication Order MAR Action Action Date Dose Rate Site fentaNYL (PF) (SUBLIMAZE) 100 MCG/2ML in jection Starting on Padmaja 02/11/22 at 1120, For 1 dose, Knapp, Am y: cabinet override fentaNYL (PF) (SUBLIMAZE) injection 25-50 Given 02/11/2022 12:01 PM CDT 25 mcg mcg 25-50 mcg, Intravenous, EVERY 5 MIN PRN, severe pain (7-10), If inadequate response may repeat 25 mcg IV slowly every 5 min PRN severe pain; when verbally requested by provider., Administer over 2 Minutes, Starting on Padmaja 02/11/22 at 1152, Doses can be exceeded under direct oversight of patient by physician., IR Intra-procedure Given 02/11/2022 11:54 AM CDT 50 mcg flumazenil (ROMAZICON) injection 0.2 mg 0.2 mg, Intravenous, EVERY 1 MIN PRN, benzodiazepine r eversal, If inadequate response after 45 seconds, may repeat 0. 2 mg IV every 1 minute PRN oversedation., Administer over 1 Minutes, Starting on [facility] 02/11/22 at 1152, Give over 15 seconds. Maximum total dose of 1 mg. Continue mon itoring until discharge criteria met for a minimum of 2 hours. Irritant. Use with caution in nicole ents on benzodiazepine therapy., IR Intra-procedure heparin (PRESSURE BAG) 2 Units/mL 0.9% N aCl (1000 mL) 1 Bag, TABLE SOLN, CONTINUOUS PRN, Paz ter prep table solution use as directed by provider., Starting on [facility] 02/11/22 at 090 2, For 10 doses, Maximum total dose = 5000 mL. Nurse will document total dose numbe r of bags used at the end of the procedure. NOT A PRESSURE BAG, IR Intra-procedure lidocaine (LMX4) cream Topical, EVERY 1 HOUR PRN, pain, with VAD insertion, S tarting on [facility] 02/11/22 at 0919, Apply at least 30 minutes prior to VAD insertion in divided doses as needed for size of site for insertion. MAX Dose: 2.5 g (?? of 5 g tube) Do NOT give if patient has a history of allergy to any local anesthetic or any anabell product. Do NOT use both lidocaine intradermal/subcu taneous injection and the lidocaine cream on the same site., IR Pre-procedure lidocaine (LMX4) cream Topical, EVERY 1 HOUR PRN, pain, with VAD insertion, S tarting on [facility] 02/11/22 at 1158, Apply at least 30 minutes prior to VAD insertion in divided doses as needed for size of site for insertion. MAX Dose: 2.5 g (?? of 5 g tube) Do NOT give if patient has a history of allergy to any local anesthetic or any anabell product. Do NOT use both lidocaine intradermal/subcu taneous injection and the lidocaine cream on the same site., IR Pre-procedure lidocaine (PF) (XYLOCAINE) 1 % injection Starting on Padmaja 02/11/22 at 1119, For 1 dose, Knapp, Am y: cabinet override lidocaine 1 % 0.1-1 mL 0.1-1 mL, Other, EVERY 1 HOUR PRN, mild pain with VAD insertion, Starting on Padmaja 02/11/22 at 0919, MAX dose 1 mL subcutaneous OR intrader mal along the side of the vein in divided doses as needed for VAD insertion. Do NOT give if patient has a history of allergy to any local anesthet ic or any anabell product. Do NOT use both lidocaine intradermal/subcutaneous injec tion and the lidocaine cream on the same site., IR Pre-procedure lidocaine 1 % 0.1-1 mL 0.1-1 mL, Other, EVERY 1 HOUR PRN, mild pain with VAD insertion, Starting on Padmaja 02/11/22 at 1158, MAX dose 1 mL subcutaneous OR intrader mal along the side of the vein in divided doses as needed for VAD insertion. Do NOT give if patient has a history of allergy to any local anesthet ic or any anabell product. Do NOT use both lidocaine intradermal/subcutaneous injec tion and the lidocaine cream on the same site., IR Pre-procedure lidocaine 1 % 1-30 mL Given by Other 02/11/2022 11:55 AM CDT 0.5 mLs 1-30 mL, Intradermal, ONCE PRN, local anesthetic. When verbally ordered by prescriber during the procedure., Starting on Padmaja 02/11/22 at 1152, For 1 dose, Dose to be divided into smaller volumes appropriate for the procedure. Provider to administer intradermally. Dose to be divided into smaller volumes appropriate for the procedure., IR Intra-procedure midazolam (VERSED) 1 MG/ML injection Starting on Padmaja 02/11/22 at 1120, For [address] [place] Zuleyka: cabinet override This drug may cause significant respiratory depres yoseph. Monitor respiratory status and vital signs carefully for 1 hour after each dose. midazolam (VERSED) injection 0.5-2 mg Given 02/11/2022 12:00 PM CDT 1 mg 0.5-2 mg, Intravenous, Administer over 1 Minutes, EVERY 4 MIN PRN, sedation, If inadequate response may repeat 0.5 mg IV slowly every 4 minutes PRN sedation until desired response; when verbally requested by provider., Starting on Padma[facility] 02/11/22 at 1152, Doses can be exceeded under direct oversight of patient by physician. This drug may cause significant respiratory depression. Monitor respiratory status and vital signs carefully for 1 hour after each dose., IR Intra-procedure Given 02/11/2022 11:53 AM CDT 0.5 mg naloxone (NARCAN) injection 0.2 mg 0.2 mg, Intravenous, EVERY 2 MIN PRN, op ioid reversal, Starting on Padmaja 02/11/22 at 1152, Administer intravenous route when available and notify provider when administered. For unintended sedation or respiratory depression if all of the below criteria are met: ~ respiratory rate LES S than or EQUAL to 8. ~SaO2 less than 92% and or/end-tidal CO2 is greater than 50. ~ the patient is receiving an opioid, has unintended sedations assessed as RASS (-3), and is cur rently not on mechanical ventilation. RASS scale moderate (-3) is movement or eye opening to voice but no eye contact. Patient Monitoring Once the patient has demonstrated a response to the naloxone, continue to monitor respiratory rate, depth, oxygen saturation and end-tidal CO2 (if available) every 15 mi nutes x 2, then every 30 minutes x 2, then every 1 hour x 1 after each naloxone dose. Consider tr ansfer to ICU if patient respiratory parameters have not improved after 4 nalox one doses., IR Intra-procedure naloxone (NARCAN) injection 0.2 mg 0.2 mg, Intramuscular, EVERY 2 MIN PRN, opioid reversal, Starting on Padmaja 02/11/22 at 1152, Administer intramuscular if an int ravenous route is not available and notify provider when administered. For unintend ed sedation or respiratory depression if all of the below criteria are met: ~ respiratory rate LESS than or EQUAL to 8. ~SaO2 less than 92% and or/end-tidal CO2 is greater th an 50. ~ the patient is receiving an opioid, has unintended sedations assessed as RASS (-3), and is currently not on mechanical ventilation. RASS scale moderate (-3) is movement or eye opening to voice but no eye contact. Patient Monitoring Once the patient has demonstrated a response to the naloxone, continue to m onitor respiratory rate, depth, oxygen saturation and end-tidal CO2 (if availab le) every 15 minutes x 2, then every 30 minutes x 2, then every 1 hour x 1 after each naloxone dose. Consider transfer to ICU if patient respiratory parameters have not improved after 4 naloxone doses., IR Intra-procedure naloxone (NARCAN) injection 0.4 mg 0.4 mg, Intravenous, EVERY 2 MIN PRN, op ioid reversal, Starting on Padmaja 02/11/22 at 1152, Administer intravenous route when available and notify provider when administered. For unintended sedation or respiratory depression if all of the below criteria are met: ~ respiratory rate LES S than or EQUAL to 8. ~ SaO2 less than 92% and or/end-tidal CO2 is greater than 50. ~ the patient is receiving an opioid, has unintended sedation assessed as RASS (-4 ) or (-5) and patient is currently not on mechanical ventilation. RASS scale (-4) is deep sedation with no response to voice but movement or eye opening to physical stimulation. R ASS scale (-5) is unarousable. Patient Monitoring Once the patient has demonstrated a response to the naloxone, continue to monitor respiratory rate, depth, oxygen saturation and end-tidal CO2 (if available) every 15 mi nutes x 2, then every 30 minutes x 2, then every 1 hour x 1 after each naloxone dose. Consider tr ansfer to ICU if patient respiratory parameters have not improved after 4 nalox one doses., IR Intra-procedure naloxone (NARCAN) injection 0.4 mg 0.4 mg, Intramuscular, EVERY 2 MIN PRN, opioid reversal, Starting on Padmaja 02/11/22 at 1152, Administer intramuscular if an int ravenous route is not available and notify provider when administered. For unintend ed sedation or respiratory depression if all of the below criteria are met: ~ res piratory rate LESS than or EQUAL to 8. ~ SaO2 less than 92% and or/end-tidal CO2 is greater mayela n 50. ~ the patient is receiving an opioid, has unintended sedation assessed as RASS (-4) or (-5) and patient is currently not on mechanical ventilation. RA SS scale (-4) is deep sedation with no response to voice but movement or eye opening to physical stimulation. RASS scale (-5) is unarousa ble. Patient Monitoring Once the patient has demonstrated a response to the nalox one, continue to monitor respiratory rate, depth, oxygen saturation and end-tidal CO2 (if availab le) every 15 minutes x 2, then every 30 minutes x 2, then every 1 hour x 1 after each naloxone dose. Consider transfer to ICU if patient respiratory parameters have not improved after 4 naloxone doses., IR Intra-procedure sodium chloride (PF) 0.9% PF flush 3 mL 3 mL, Intracatheter, EVERY 8 HOURS, First dose on Padmaja 02/11/22 at 0930, to lock peripheral IV dormant line, IR Pre-procedure sodium chloride (PF) 0.9% PF flush 3 mL 3 mL, Intracatheter, EVERY 1 MIN PRN, li ne flush, other, to ensure patency or to lock dormant line, Starting on Padmaja 02/11/22 at 0919, IR Pre-procedure sodium chloride (PF) 0.9% PF flush 3 mL 3 mL, Intracatheter, EVERY 8 HOURS, First dose on Padmaja 02/11/22 at 1200, to lock peripheral IV dormant line, IR Pre-procedure sodium chloride (PF) 0.9% PF flush 3 mL 3 mL, Intracatheter, EVERY 1 MIN PRN, li ne flush, other, to ensure patency or to lock dormant line, Starting on Padmaja 02/11/22 at 1158, IR Pre-procedure sodium chloride 0.9% 1000 mL TABLE SOLN 1 Bag, TABLE SOLN, CONTINUOUS PRN, Paz ter prep table solution use as directed by provider, Starting on Padmaja 02/11/22 at 1158 , For 5 doses, Maximum total dose = 5000 mL. Nurse will document total dose numbe r of bags used at the end of the procedure. NOT A PRESSURE BAG, IR Intra-procedure sodium chloride 0.9% infusion New Bag 02/11/2022 11:59 AM CDT 50 mL/hr at 50 mL/hr, Intravenous, CONTINUOUS, IF PATIENT IS RECEIVING RENAL DIALYSIS, RN to reduce rate of 0.9 % sodium chloride IV solution to 10 mL /hour (TKO) IV infusion to prevent fluid overload, IR Pre-procedure, Starting on Padmaja 02/11/22 at 1200, Until Padmaja 02/11/22 at 1534 Take other usual AM meds with small amou nt of water CONTINUOUS PRN, Starting on Padmaja 02/11/22 at 0919, Until Padmaja 02/11/22 at 1534, IR Pre-procedure documented in this encounter Active and Recently Administered Medications Times are shown in CDT. Scheduled Medication Order 02/09/2022 02/10/2022 02/11/2022 sodium chloride (PF) 0.9% PF flush 3 mL 0930 (Canceled Entry - Provider: Orders Generic Provider - Comment: Automatically canceled at discontinue of medication order) 3 mL, Intracatheter, EVERY 8 HOURS, Firs t dose on Padmaja 02/11/22 at 0930, to lock peripheral IV dormant line, IR Pre-procedure sodium chloride (PF) 0.9% PF flush 3 mL 1200 (Canceled Entry - Provider: Orders Generic Provider - Comment: Automatically canceled at discontinue of medication order) 3 mL, Intracatheter, EVERY 8 HOURS, Firs t dose on Padmaja 02/11/22 at 1200, to lock peripheral IV dormant line, IR Pre-procedure Continuous Medication Order 02/09/2022 02/10/2022 02/11/2022 sodium chloride 0.9% infusion 11 59 (New Bag - Provider: Zuleyka Knapp RN) at 50 mL/hr, Intravenous, CONTINUOUS, IF PATIENT IS RECEIVING RENAL DIALYSIS, RN to reduce rate of 0.9 % sodium chloride IV solution to 10 mL /hour (TKO) IV infusion to prevent fluid overload, IR Pre-pr ocedure, Starting on Padmaja 02/11/22 at 1200, Until Padmaja 02/11/22 at 153 4 PRN Medication Order 02/09/2022 02/10/2022 02/11/2022 fentaNYL (PF) (SUBLIMAZE) injection 25-50 mcg 1154 (Given - Provider: Zuleyka Knapp RN)1201 (Given - Provider: Zuleyka Knapp RN) 25-50 mcg, Intravenous, EVERY 5 MIN PRN, severe pain, If inadequate response may repeat 25 mcg IV slowly every 5 min PRN severe pain; when verbally requested by provider., Administer over 2 Minutes, Sta rting on Padmaja 02/11/22 at 1152, Doses can b e exceeded under direct oversight of patient by physician., IR Intra-procedure flumazenil (ROMAZICON) injection 0.2 mg 0.2 mg, Intravenous, EVERY 1 MIN PRN, be nzodiazepine reversal, If inadequate response after 45 seconds, may repeat 0.2 mg IV every 1 minute PRN oversedation., Administer over 1 Minutes, Starting on Padmaja 02/11/22 at 1152, Give over 15 seconds. Ma ximum total dose of 1 mg. Continue monitoring until discharge criteria met for a minimum of 2 hours. Irritant. Use with caution in patients on benzodiazepine therapy., IR Intra-procedure heparin (PRESSURE BAG) 2 Units/mL 0.9% NaCl (1000 mL) 1 Bag, TABLE SOLN, CONTINUOUS PRN, Paz ter prep table solution use as directed by provider., Starting on Padmaja 02/11/22 at 0902, For 10 doses, Maximum total dose = 5000 mL. Nurse will document total dose n umber of bags used at the end of the pro cedure. NOT A PRESSURE BAG, IR Intra-procedure lidocaine (LMX4) cream Topical, EVERY 1 HOUR PRN, pain, with VA D insertion, Starting on Padmaja 02/11/22 at 0919, Apply at least 30 minutes prior to VAD insertion in divided doses as needed for size of site for insertion. MAX Dose: 2.5 g (?? of 5 g tube) Do NOT give if p atient has a history of allergy to any local anesthetic or any anabell product. Do NOT use both lidocaine intradermal/subcutaneous injection and the lidocaine cream on the same site., IR Pre-procedure lidocaine (LMX4) cream Topical, EVERY 1 HOUR PRN, pain, with VA D insertion, Starting on Padmaja 02/11/22 at 1158, Apply at least 30 minutes prior to VAD insertion in divided doses as needed for size of site for insertion. MAX Dose: 2.5 g (?? of 5 g tube) Do NOT give if p atient has a history of allergy to any local anesthetic or any anabell product. Do NOT use both lidocaine intradermal/subcutaneous injection and the lidocaine cream on the same site., IR Pre-procedure lidocaine 1 % 0.1-1 mL 0.1-1 mL, Other, EVERY 1 HOUR PRN, mild pain with VAD insertion, Starting on Padmaja 02/11/22 at 0919, MAX dose 1 mL subcutaneous OR intradermal along the side of the vein in divided doses as needed for VAD i nsertion. Do NOT give if patient has a h istory of allergy to any local anesthetic or any anabell product. Do NOT use both lidocaine intradermal/subcutaneous injection and the lidocaine cream on the same site., IR Pre-procedure lidocaine 1 % 0.1-1 mL 0.1-1 mL, Other, EVERY 1 HOUR PRN, mild pain with VAD insertion, Starting on Padmaja 02/11/22 at 1158, MAX dose 1 mL subcutaneous OR intradermal along the side of the vein in divided doses as needed for VAD i nsertion. Do NOT give if patient has a h istory of allergy to any local anesthetic or any anabell product. Do NOT use both lidocaine intradermal/subcutaneous injection and the lidocaine cream on the same site., IR Pre-procedure lidocaine 1 % 1-30 mL (COMPLETED) 1155 (Given by Other - Provider: Zuleyka Knapp RN - Comment: total dose given by Dr Noguera) 1-30 mL, Intradermal, ONCE PRN, local an esthetic. When verbally ordered by prescriber during the procedure., Starting on Padmaja 02/11/22 at 1152, For 1 dose, Dose to be divided into smaller volumes appropria te for the procedure. Provider to admini ster intradermally. Dose to be divided into smaller volumes appropriate for the procedure., IR Intra-procedure midazolam (VERSED) injection 0.5-2 mg 1153 (Given - Provider: Zuleyka Knapp RN)1200 (Given - Provider: Zuleyka Knapp RN) 0.5-2 mg, Intravenous, Administer over 1 Minutes, EVERY 4 MIN PRN, sedation, If inadequate response may repeat 0.5 mg IV slowly every 4 minutes PRN sedation until desired response; when verbally request ed by provider., Starting on Padmaja 02/11/22 at 1152, Doses can be exceeded under direct oversight of patient by physician. This drug may cause significant respiratory depression. Monitor respiratory status and vital signs carefully for 1 hour after each dose., IR Intra- procedure naloxone (NARCAN) injection 0.2 mg(Linked Group 1) 0.2 mg, Intravenous, EVERY 2 MIN PRN, op ioid reversal, Starting on Padmaja 02/11/22 at 1152, Administer intravenous route when available and notify provider when administered. For unintended sedation or respi ratory depression if all of the below cr iteria are met: ~ respiratory rate LESS than or EQUAL to 8. ~SaO2 less than 92% and or/end-tidal CO2 is greater than 50. ~ the patient is receiving an opioid, has unintended sedations assessed as RASS ( -3), and is currently not on mechanical ventilation. RASS scale moderate (-3) is movement or eye opening to voice but no eye contact. Patient Monitoring Once the patient has demonstrated a response to t he naloxone, continue to monitor respiratory rate, depth, oxygen saturation and end-tidal CO2 (if available) every 15 minutes x 2, then every 30 minutes x 2, then every 1 hour x 1 after each naloxone do se. Consider transfer to ICU if patient respiratory parameters have not improved after 4 naloxone doses., IR Intra-procedure naloxone (NARCAN) injection 0.2 mg(Linked Group 1) 0.2 mg, Intramuscular, EVERY 2 MIN PRN, opioid reversal, Starting on Padmaja 02/11/22 at 1152, Administer intramuscular if an intravenous route is not available and notify provider when administered. For unin tended sedation or respiratory depressio n if all of the below criteria are met: ~ respiratory rate LESS than or EQUAL to 8. ~SaO2 less than 92% and or/end-tidal CO2 is greater than 50. ~ the patient is receiving an opioid, has unintended dilcia tions assessed as RASS (-3), and is currently not on mechanical ventilation. RASS scale moderate (-3) is movement or eye opening to voice but no eye contact. Nicole ent Monitoring Once the patient has demo nstrated a response to the naloxone, continue to monitor respiratory rate, depth, oxygen saturation and end-tidal CO2 (if available) every 15 minutes x 2, then ev philip 30 minutes x 2, then every 1 hour x 1 after each naloxone dose. Consider transfer to ICU if patient respiratory parameters have not improved after 4 naloxone doses., IR Intra-procedure naloxone (NARCAN) injection 0.4 mg(Linked Group 1) 0.4 mg, Intravenous, EVERY 2 MIN PRN, op ioid reversal, Starting on Padmaja 02/11/22 at 1152, Administer intravenous route when available and notify provider when administered. For unintended sedation or respi ratory depression if all of the below cr iteria are met: ~ respiratory rate LESS than or EQUAL to 8. ~ SaO2 less than 92% and or/end-tidal CO2 is greater than 50. ~ the patient is receiving an opioid, goldberg s unintended sedation assessed as RASS ( -4) or (-5) and patient is currently not on mechanical ventilation. RASS scale (-4) is deep sedation with no response to voice but movement or eye opening to phys ical stimulation. RASS scale (-5) is justin rousable. Patient Monitoring Once the patient has demonstrated a response to the naloxone, continue to monitor respiratory rate, depth, oxygen saturation and end- tidal CO2 (if available) every 15 minute s x 2, then every 30 minutes x 2, then every 1 hour x 1 after each naloxone dose. Consider transfer to ICU if patient respiratory parameters have not improved after 4 naloxone doses., IR Intra-procedure naloxone (NARCAN) injection 0.4 mg(Linked Group 1) 0.4 mg, Intramuscular, EVERY 2 MIN PRN, opioid reversal, Starting on Padmaja 02/11/22 at 1152, Administer intramuscular if an intravenous route is not available and notify provider when administered. For unin tended sedation or respiratory depressio n if all of the below criteria are met: ~ respiratory rate LESS than or EQUAL to 8. ~ SaO2 less than 92% and or/end- tidal CO2 is greater than 50. ~ the patient is receiving an opioid, has unintended sed ation assessed as RASS (-4) or (-5) and patient is currently not on mechanical ventilation. RASS scale (-4) is deep sedation with no response to voice but movemen t or eye opening to physical stimulation . RASS scale (-5) is unarousable. Patient Monitoring Once the patient has demonstrated a response to the naloxone, continue to monitor respiratory rate, depth, ox ygen saturation and end-tidal CO2 (if av ailable) every 15 minutes x 2, then every 30 minutes x 2, then every 1 hour x 1 after each naloxone dose. Consider transfer to ICU if patient respiratory paramete rs have not improved after 4 naloxone doses., IR Intra-procedure sodium chloride (PF) 0.9% PF flush 3 mL 3 mL, Intracatheter, EVERY 1 MIN PRN, li ne flush, other, to ensure patency or to lock dormant line, Starting on Padmaja 02/11/22 at 0919, IR Pre-procedure sodium chloride (PF) 0.9% PF flush 3 mL 3 mL, Intracatheter, EVERY 1 MIN PRN, li ne flush, other, to ensure patency or to lock dormant line, Starting on Padmaja 02/11/22 at 1158, IR Pre-procedure sodium chloride 0.9% 1000 mL TABLE SOLN 1 Bag, TABLE SOLN, CONTINUOUS PRN, Paz ter prep table solution use as directed by provider, Starting on Padmaja 02/11/22 at 1158, For 5 doses, Maximum total dose = 5000 mL. Nurse will document total dose num parth of bags used at the end of the proce dure. NOT A PRESSURE BAG, IR Intra-procedure Take other usual AM meds with small amount of water CONTINUOUS PRN, Starting on Padmaja 02/11/22 a t 0919, Until Padmaja 02/11/22 at 1534, IR Pre-procedure Linked Groups Order Group 1: naloxone (NARCAN) injection 0.2 mgJump to med 0.2 mg, Intravenous, EVERY 2 MIN PRN, op ioid reversal, Starting on Padmaja 02/11/22 at 1152
Administer intravenous route when available and notify provider when administered. For unintended sedation or respiratory depression if al l of the below criteria are met: ~ respiratory rate LESS than or EQUAL to 8. ~SaO2 less than 92% and or/end- tidal CO2 is greater than 50.&n bsp;~ the patient is receiving an opioid , has unintended sedations assessed as RASS (-3), and is currently not on mechanical ventilation. RASS scale moderate (-3) is movement or eye o pening to voice but no eye contact.&nbsp ; Patient Monitoring Once the patient has demonstrated a response to the naloxone, continue to monitor respiratory rate, depth, oxygen satur ation and end-tidal CO2 (if available) e very 15 minutes x 2, then every 30 minutes x 2, then every 1 hour x 1 after each naloxone dose. Consider transfer to ICU if patient respiratory parameters have not improved after 4 na loxone doses.
IR Intra-procedure Or naloxone (NARCAN) injection 0.4 mgJump to med 0.4 mg, Intravenous, EVERY 2 MIN PRN, op ioid reversal, Starting on Padmaja 02/11/22 at 1152
Administer intravenous route when available and notify provider when administered. For unintended sedation or respiratory depression if al l of the below criteria are met: ~ respiratory rate LESS than or EQUAL to 8. ~ SaO2 less than 92% and or/end- tidal CO2 is greater than 50.&n bsp;~ the patient is receiving an opioid , has unintended sedation assessed as RASS (-4) or (-5) and patient is currently not on mechanical ventilation. RASS scale (-4) is deep sedatio n with no response to voice but movement or eye opening to physical stimulation. RASS scale (-5) is unarousable. Patient Monitoring Onc e the patient has demonstrated a respons e to the naloxone, continue to monitor respiratory rate, depth, oxygen saturation and end-tidal CO2 (if available) every 15 minutes x 2, then every 30 minutes x 2 , then every 1 hour x 1 after each nalox one dose. Consider transfer to ICU if patient respiratory parameters have not improved after 4 naloxone doses.
IR Intra-procedure Or naloxone (NARCAN) injection 0.2 mgJump to med 0.2 mg, Intramuscular, EVERY 2 MIN PRN, opioid reversal, Starting on Padmaja 02/11/22 at 1152
Administer intramuscular if an intravenous route is not available and notify provider when administered.& amp;nbsp;For unintended sedation or resp iratory depression if all of the below criteria are met: ~ respiratory rate LESS than or EQUAL to 8. ~SaO2 less than 92% and or/end-tidal CO2 i s greater than 50. ~ the patient is receiving an opioid, has unintended sedations assessed as RASS (-3), and is currently not on mechanical ventilation. RASS scale moderate ( -3) is movement or eye opening to voice but no eye contact. Patient Monitoring Once the patient has demonstrated a response to the naloxone, continue to monitor respiratory r ate, depth, oxygen saturation and end-ti alexis CO2 (if available) every 15 minutes x 2, then every 30 minutes x 2, then every 1 hour x 1 after each naloxone dose. Consider transfer to IC U if patient respiratory parameters have not improved after 4 naloxone doses.
IR Intra-procedure Or naloxone (NARCAN) injection 0.4 mgJump to med 0.4 mg, Intramuscular, EVERY 2 MIN PRN, opioid reversal, Starting on Padmaja 02/11/22 at 1152
Administer intramuscular if an intravenous route is not available and notify provider when administered.& amp;nbsp;For unintended sedation or resp iratory depression if all of the below criteria are met: ~ respiratory rate LESS than or EQUAL to 8. ~ SaO2 less than 92% and or/end-tidal CO2 i s greater than 50. ~ the patient is receiving an opioid, has unintended sedation assessed as RASS (-4) or (-5) and patient is currently not on mechanical ventilation. RASS sc sivan (-4) is deep sedation with no respon se to voice but movement or eye opening to physical stimulation. RASS scale (-5) is unarousable. Patient Monitoring Once the patient has de monstrated a response to the naloxone, continue to monitor respiratory rate, depth, oxygen saturation and end-tidal CO2 (if available) every 15 minutes x 2, t hen every 30 minutes x 2, then every 1 h our x 1 after each naloxone dose. Consider transfer to ICU if patient respiratory parameters have not improved after 4 naloxone doses.
IR Intra-procedure documented in this encounter Care Teams Back Grinder Relationship Specialty Start Date End Date Preet Huff PCP - General 06/24/11 documented as of this encounter
--- OUTSIDE RECORDS SUMMARY | 2022-09-01 20:11 | XMS_ITS | Clinical Summary ---
:1965 Author Organization [facility] Address [address] [place] [id number] Care Team Providers Name Role Phone Preet Huff Primary Care Provider Allergies Active Allergy Reactions Severity Noted Date Comments Dihydroxyaluminum Aminoacetate GI Disturbance Medium 07/16/20 11 GI bleeding Medications Medication Sig Dispensed Refills Start Date End Date Status Cholecalciferol Take 2,000 Units 0 Active (VITAMIN D3 PO) by mouth every evening LISINOPRIL PO Take 40 mg by 0 Ac tive mouth daily (Takes 2 x 20mg tablet = 40mg ) Calcium Acetate, Phos Take 1,334 mg by 0 Active Binder, (CALCIUM mouth 3 times ACETATE PO) daily (with meals) Takes with meals (2 x 667mg tablet) AMLODIPINE BESYLATE PO Take 10 mg by 0 Active mouth four times a week On Non dialysis days which is MWFSun METOPROLOL TARTRATE PO Take 100 mg by 0 Active mouth 2 times daily Take on MWFSun, on Non-dialysis days BISACODYL PO Take 10 mg by 0 Act bill mouth four times a week (Takes 2 x 5mg tablet = 10mg dose) Tuesday, Tuesday, Tuesday, and Tuesday oxyCODONE IR Take 1-2 tablets 30 tablet 0 12/19/2017 Active (ROXICODONE) 5 MG (5-10 mg) by mouth tabletIndications: every 4 hours as Post-op pain needed for other (pain control or improvement in physical function. Hold dose for analgesic side effects.) warfarin (COUMADIN) 4 Take 1 tablet (4 30 tablet 1 12/19/2017 Active MG tabletIndications: mg) by mouth daily Problem with dialysis access, subsequent encounter atorvastatin (LIPITOR) Take 1 tablet (20 30 tablet 3 8 Active 20 MG mg) by mouth every tabletIndications: evening Mixed hyperlipidemia oxyCODONE IR Take 1 tablet (5 30 tablet 0 12/29/2017 Active (ROXICODONE) 5 MG mg) by mouth daily tabletIndications: maximum 6 Ulcer of heel and tablet(s) per day midfoot, unspecified laterality, with fat layer exposed (H) lactulose (CHRONULAC) Take 15-60 mLs by 0 Active 10 GM/15ML solution mouth daily as needed for constipation omeprazole (PRILOSEC) Take 20 mg by [address] capsule mouth daily multivitamin RENAL Take 1 capsule by 0 Active (MULTIVITAMIN RENAL) 1 mouth daily MG capsule Active Problems Problem Noted Date Foot ulcer 01/23/2018 Foot ulcer, left 12/16/2017 Steal syndrome of dialysis vascular access 12/16/2017 Postoperative observation 03/05/2016 History of staph septicemia 12/20/2015 Fever and chills 12/16/2015 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 Problem with dialysis access 08/14/2015 Fever 08/09/2015 ESRD (end stage renal disease) 06/04/2014 Post-op pain 06/20/2013 Clotted renal dialysis arteriovenous graft 06/19/2013 Clotted renal dialysis AV graft 06/19/2013 End stage renal disease 08/10/2012 Fistula 08/05/2012 Resolved Problems Problem Noted Date Resolved Date Clotted dialysis access 08/03/2012 08/10/2012 ESRD (end stage renal disease) on dialysis 05/03/2012 08/01/2012 Hypertension 08/01/2012 A-V fistula 08/01/2012 Immunizations Name Administration Dates Next Due COVID-19 Vaccine 18+ (Moderna) 01/13/2022, 08/17/2021 HepB, Unspecified 11/07/2013, 09/25/2013, 04/24/2013, 11/24/2010, 10/21/2009 Influenza (H1N1) 10/21/2009 Influenza Vaccine >6 months 08/05/2021, 07/13/2017 (Alfuria,Fluzone) Pneumo Conj 13-V (2010&after) 01/17/2019 Pneumococcal, Unspecified 10/12/2010 Tdap (Adult) Unspecified Formulation 10/21/2009 Social History Tobacco Use Types Packs/Day Years Used Date Smoking Tobacco: Never Smokeless Tobacco: Never Alcohol Use Standard Drinks/Week Comments No 0 (1 standard drink = 0.6 oz pure alcoho l) Sex Assigned at Date Recorded Not on file Last Filed Vital Signs Vital Sign Reading Time Taken Comments Blood Pressure 139/68 02/11/2022 12:52 PM CDT Pulse 64 02/11/2022 12:52 PM CDT Temperature 35.8 ??C (96.5 ??F) 02/11/2022 12:41 PM CDT Respiratory Rate 16 02/11/2022 12:52 PM CDT Oxygen Saturation 100% 02/11/2022 12:52 PM CDT Inhaled Oxygen - - Concentration Weight 87.5 kg (193 lb) 02/11/2022 9:13 AM CDT Height 162.6 cm (5' 4) 10/02/2019 8:26 Simultaneous fi ling. AM [employer]ESSING [employer]ANT MANAGER User may not hav e seen previous data. Body Mass Index 33.13 10/02/2019 8:26 AM FOOD PROCESSING PLANT MANAGER Plan of Treatment Health Maintenance Due Date Last Done Comments ADVANCE CARE PLANNING 1965 ANNUAL REVIEW OF HM ORDERS 1963 CT COLONOGRAPHY 1965 FIT-DNA (Cologuard) 1965 FLEX SIG 1965 MICROALBUMIN 1965 PARATHYROID 1965 URINALYSIS 1964 HIV SCREENING 1978 MEDICARE ANNUAL WELLNESS 1981 VISIT ZOSTER IMMUNIZATION (1 of 1982 2) FIT 06/14/2015 06/14/2014 BMP 04/25/2018 01/24/2018, 12/17/2017, 12/16/2017, Additional history exists HEMOGLOBIN 07/26/2018 01/24/2018, 12/18/2017, 12/18/2017, Additional history exists LIPID 12/07/2018 12/07/2017 DTAP/TDAP/TD IMMUNIZATION 10/21/2019 10/21/2009, 10/21/2009 (2 - Td or Tdap) Pneumococcal Vaccine: 01/18/2020 01/17/2019, 12/02/2015, Pediatrics (0 to 5 Years) 10/12/2010, Additional and At-Risk Patients (6 to history exists 64 Years) (3 - PPSV23 if available, else PCV20) PHQ-2 (once per calendar 10/10/2021 01/15/2016 year) COVID-19 Vaccine (5 - 03/10/2022 01/13/2022, 08/17/2021, Booster for Moderna series) 11/28/2020, Addition al history exists INFLUENZA VACCINE (#1) 2022 08/05/2021, 07/11/2020, 08/01/2019, Additional history exists COLONOSCOPY 09/24/2023 09/24/2013 COLORECTAL CANCER SCREENING 09/24/2023 HEPATITIS B IMMUNIZATION Completed 11/07/2013, 11/07/2013, 09/25/2013, Additional history exists PHOSPHORUS Completed 08/09/2015, 06/17/2014, 06/15/2014, Additional history exists ALK PHOS Completed 12/16/2015 HEPATITIS C SCREENING Completed 01/04/2022 IPV IMMUNIZATION Aged Out No longer eligi ble based on patient 's age to complete this topic MENINGITIS IMMUNIZATION Aged Out No longe r eligible based on patient 's age to complete this topic Medical Devices Implanted Type Area Scaffolding Helper Device Shelf Model / Identifier Expiration Serial / Date Lot Graft Patch Vasc Xenosure Biologic 0.8x08cm 0.8p8 Bone/Tis Left: LEMAITRE 06/06/2023 0.8P8 / Implanted: Qty: 1 on 12/16/2017 by Jaxon Saravia MD at [facility] rocco/Biol Iliac/Fem VASCULAR IN / ogic orals [id number] Graft Pericardium 8x0.8cm Vascu-Guard Right: [employer] 01/16/2016 [id number] / Implanted: Qty: 1 on 10/20/2011 at [facility] L Arm / [id number] Femoral Popliteal Artery Right: 12/07 [id number] / Implanted: Qty: 1 on 05/03/2012 by Jaxon Saravia MD at [facility] Groin [id number] / Description: CADAVER FEMORAL ARTERY RINS ED IN A AND B SOLUTION: A SOLUTION LOT [id number] EXPIRATION DA TE 01/09/2014 B SOLUTION LOT #[id number] EXPIRATION DA TE 11/15/2013 Graft Propaten Taper [id number] Right: Leg 10/24/2015 [id number] / Implanted: Qty: 1 on 08/09/2012 by Jaxon Saravia MD at [facility] / [id number] Graft Propaten Taper [id number] Left: Groin W.L.GOR E & 02/07/2017 [id number] / Implanted: Qty: 1 on 06/20/2013 by Jaxon Saravia MD at [facility] / [id number] Graft Pericardium 8x0.8cm Vascu-Guard Left: Leg [employer] 11/26/2018 [id number] / Implanted: Qty: 1 on 05/08/2014 by Jaxon Saravia MD at [facility] PN# [id number] / [id number] Procol Vascular Bioprosthesis Left: Groin 12/16/2018 [id number] / Implanted: Qty: 1 on 07/02/2015 by Jaxon Saravia MD at [facility] [id number] / Procol Vascular Bioprosthesis Left: Groin 12/16/2018 [id number] / Implanted: Qty: 1 on 08/13/2015 by Jaxon Saravia MD at [facility] [id number] / Graft Vasc Bioprosthesis Procol [id number] Left: Leg LEMAITRE VASCULAR 02/03/2019 [id number] / Implanted: Qty: 1 on 03/05/2016 by Jaxon Saravia MD at [facility] [place] [id number] / Insurance Payer Benefit Plan / Subscriber ID Effective Phone Address T ype Group Dates MEDICARE MEDICARE [id number] 1992-Prese [phone] ATTN CLAI MS Medicare nt [address] [place] [address] [place] [id number] 2006-Prese [phone] [address] Medicaid [address] [place] [address] Advance Directives For more information, please contact: [phone] Latest Code Status on File Code Status Date Activated Date Inactivated Comments Full Code 01/26/2018 12:25 PM 01/25/2019 11:45 AM Code Status History Code Status Date Activated Date Inactivated Comments Full Code 12/19/2017 2:36 PM 01/26/2018 12:25 PM Full Code 12/16/2017 2:03 PM 12/19/2017 2:36 PM Full Code 03/06/2016 7:33 AM 12/16/2017 2:03 PM Full Code 03/05/2016 12:01 PM 03/06/2016 7:33 AM Care Teams Tube And Manifold Builder Relationship Specialty Start Date End Date Preet Huff PCP - General 06/24/11
--- OUTSIDE RECORDS SUMMARY | 2022-09-01 20:12 | XMS_ITS | Encounter Summary ---
:1965 Author Organization [place] Address [address] [facility] [place] [address] Care Team Providers Name Role Phone Preet Huff Primary Care Provider Reason for Referral Diagnostic Imaging Ultrasound (Routine) - Closed Specialty Diagnoses / Procedures Referred By Contact Refer red To Contact Diagnoses AVF (arteriovenous fistula) (H) Other specified complication of vascular prosthetic devices, implants and grafts, Jaxon Sharp, Procedures US Ext Arterial Venous Dialys Acs Graft [address] [place] [id number] Referral ID Status Reason Start Date Expiration Date Visits Requ ested Visits Authorized [id number] Closed 02/23/2019 02/23/2020 1 1 Reason for Visit Diagnostic Imaging Ultrasound (Routine) - Closed Specialty Diagnoses / Procedures Referred By Contact Refer red To Contact Diagnoses AVF (arteriovenous fistula) (H) Other specified complication of vascular prosthetic devices, implants and grafts, Jaxon Sharp, Procedures US Ext Arterial Venous Dialys Acs Graft [address] [place] [id number] Referral ID Status Reason Start Date Expiration Date Visits Requ ested Visits Authorized [id number] Closed 02/23/2019 02/23/2020 1 1 Encounter Details Date Type Department Care Team Description 06/07/2019 Hospital Encounter [facility] Omlie, Jaxon AV F (arteriovenous fistula) (H); Ariane Oviedo MD Other specified complication of vascular prosthetic devices, implants and grafts, sequela [address] [place] [address] [place] [address] [phone] Social History Tobacco Use Types Packs/Day Years Used Date Smoking Tobacco: Never Smokeless Tobacco: Never Alcohol Use Standard Drinks/Week Comments No 0 (1 standard drink = 0.6 oz pure alcoho l) Sex Assigned at Date Recorded Not on file documented as of this encounter Medications at Time of Discharge Medication Sig Dispensed Refills Start Date End Date AMLODIPINE BESYLATE PO Take 10 mg by mouth 0 four times a week On Non dialysis days which is MW atorvastatin (LIPITOR) 20 Take 1 tablet (20 [...] subsequent encounter documented as of this encounter Plan of Treatment Not on filedocumented as of this encounter Procedures Procedure Name Priority Date/Time Associated Diagnosis Comme nts US EXTREMITY Routine 06/07/2019 1:29 PM AVF (arteriovenous Res ults for this ARTERIAL VENOUS CDT fistula) (H) procedure are in DIALYSIS ACCESS Other specified the resul ts GRAFT complication of section. vascular prosthetic devices, implants and grafts, sequela documented in this encounter Results US Ext Arterial Venous Dialys Acs Graft (06/07/2019 1:29 PM CDT) Anatomical Region Laterality Modality Vascular, Abdomen/Pelvis Ultrasound Specimen (Source) Anatomical Location Collection Method / Collectio n Time Received Time / Laterality Volume Impressions 06/07/2019 7:17 PM CDT IMPRESSION: 1. Moderate venous outflow stenosis, julianna rly similar to previous exam. 2. Pseudoaneurysmal dilatation throughou t the thigh fistula, also similar to previous exam. ?? PATRICIA OLMSTEAD MD Narrative 06/07/2019 7:17 PM CDT US EXTREMITY ARTERIAL VENOUS DIALYSIS ACCESS GRAFT ?? 06/07/2019 1:29 PM HISTORY: ??54-year-old patient with a hi story of AV fistula. COMPARISON: October 26, 2018. TECHNIQUE: Color Doppler and spectral wa veform analysis obtained through the thigh fistula. FINDINGS: Arterial anastomosis is patent . Inflow artery is 4.3 mm. Pseudoaneurysmal dilatation throughout t he fistula with diameters ranging from 5.8 to 19.9 mm. Venous outf low demonstrates velocity elevation of 439/274 cm/second with diam eter 3.2 mm, previously 358/235 cm/second with diameter 4.1 mm. Outflow vein more cranial to this location ranges from 9.6 to 11.1 mm . Total blood flow volume is 1537, previously 2884. Procedure Note Patricia Olmstead MD - 06/07/2019 US EXTREMITY ARTERIAL VENOUS DIALYSIS AC CESS GRAFT 06/07/2019 1:29 PM HISTORY: 54-year-old patient with a hist ory of AV fistula. COMPARISON: October 26, 2018. TECHNIQUE: Color Doppler and spectral wa veform analysis obtained through the thigh fistula. FINDINGS: Arterial anastomosis is patent . Inflow artery is 4.3 mm. Pseudoaneurysmal dilatation throughout t he fistula with diameters ranging from 5.8 to 19.9 mm. Venous outf low demonstrates velocity elevation of 439/274 cm/second with diam eter 3.2 mm, previously 358/235 cm/second with diameter 4.1 mm. Outflow vein more cranial to this location ranges from 9.6 to 11.1 mm . Total blood flow volume is 1537, previously 2884. IMPRESSION: 1. Moderate venous outflow stenosis, julianna rly similar to previous exam. 2. Pseudoaneurysmal dilatation throughou t the thigh fistula, also similar to previous exam. PATRICIA OLMSTEAD MD Jaxon Saravia MD IMG US ORDERABLES documented in this encounter Visit Diagnoses Diagnosis AVF (arteriovenous fistula) (H) Arteriovenous fistula, acquired Other specified complication of vascular prosthetic devices, implants and grafts, sequela documented in this encounter Care Teams [employer] Relationship Specialty Start Date End Date Preet Huff PCP - General 06/24/11 documented as of this encounter
--- OUTSIDE RECORDS SUMMARY | 2022-09-01 20:12 | XMS_ITS | Encounter Summary ---
:1965 Author Organization [place] Address [address] [facility] [place] [address] Care Team Providers Name Role Phone Preet Huff Primary Care Provider Reason for Visit Reason Onset Date Comments Nurse Advice Line 2018 Encounter Details Date Type Department Care Team Description 2018 Telephone [facility] Jaxon Saravia Nurse Ad vice Line Vascular Clinic Mk Oviedo MD [address] [id number] [address] [id number] (Wo rk) Social History Tobacco Use Types Packs/Day Years Used Date Smoking Tobacco: Never Smokeless Tobacco: Never Alcohol Use Standard Drinks/Week Comments No 0 (1 standard drink = 0.6 oz pure alcoho l) Sex Assigned at Date Recorded Not on file documented as of this encounter Miscellaneous Notes Telephone Encounter - Wanda Pichardo MA - 04/03/2018 1:49 PM CDT Attempted to reach patient but could not leave a message Telephone Encounter - Wanda Pichardo MA - 03/28/2018 9:14 AM CDT Attempted to reach patient's family on home number but could not leave a message Telephone Encounter - Janell Edgar, RN - 2018 11:25 AM CDT Sofi from [facility] called to inquire if Dr. Saravia is aware pt has been seeing podiatristin [place] and having debridement of wound by this dermatology physician assistant. I called Sofi back to report according to Dr. Saravia's note on 01-26-18 he noted Patient should follow-up with his local dermatology physician assistant in [facility] since coming to see me in the office on a weekly to biweekly process for wound debridement would be very difficult for him. Especially with his d ialysis 3 days weekly. Patient has limited walking andshould avoid as much pressure as possible on the heel ulcer. Sofi also reports pt having 1+ swelling of left leg which pt has not had before, dialysis access is working fine. No f/u visit scheduled with Dr. Saravia. Routing to helpdesk administrator to coordiante OV with Dr. Saravia at next available. LUIS LoveN, RN documented in this encounter Plan of Treatment Not on filedocumented as of this encounter Visit Diagnoses Not on filedocumented in this encounter Care Teams Candy Separator Enrobing Relationship Specialty Start Date End Date Preet Huff PCP - General 06/24/11 documented as of this encounter
--- OUTSIDE RECORDS SUMMARY | 2022-09-01 20:12 | XMS_ITS | Encounter Summary ---
:1965 Author Organization [place] Address [address] [facility]. [address] Care Team Providers Name Role Phone Preet Huff Primary Care Provider Reason for Referral Therapeutic Imaging/IR - Closed Specialty Diagnoses / Procedures Referred By Contact Refer red To Contact Radiology. Diagnoses ESRD (end stage renal disease) on dialysis (H) Jaxon Saravia Inte rventional Rad Procedures IR Dialysis Fistulogram Left MD Preet [address] [place] [phone] [place] [id number] Referral ID Status Reason Start Date Expiration Date Visits Requ ested Visits Authorized [id number] Closed 01/05/2019 01/05/2020 1 1 Reason for Visit Reason Onset Date Comments Clinic Care Coordination - Follow-up 01/05/2019 AV graft outflow getting quieter, bleeding issues Encounter Details Date Type Department Care Team Description 01/05/[address] [facility] Jaxon Saravia Clinic C are V[facility] Mk Oviedo MD Coordination - [address] Fo llow-up (AV graft [address] outflow getting [place] [phone] [place] [id number] quieter, bleeding [phone] (Wo rk) issues) Social History Tobacco Use Types Packs/Day Years Used Date Smoking Tobacco: Never Smokeless Tobacco: Never Alcohol Use Standard Drinks/Week Comments No 0 (1 standard drink = 0.6 oz pure alcoho l) Sex Assigned at Date Recorded Not on file documented as of this encounter Miscellaneous Notes Telephone Encounter - Angie Mcclellan - 01/11/2019 1:48 PM CDT Herminio is scheduled for fistulogram on 01/18/19. I called [facility] and gave Chen keenan. Angie Mcclellan - Applications Project Manager at [facility] Telephone Encounter - Mona Vang RN - 01/05/2019 3:03 PM CDT Reviewed with Dr. Saravia. Due to pt's hx, he recommends pt to have fistulogram. Order for fistulogramentered. Will route to scheduling to coordinate fistulogram. SUSHIL Vargas, RN Telephone Encounter - Mona Vang RN - 01/05/2019 10:39 AM CDT I contacted Sofi to discuss. Sofi reports the outflow is diminished, venous pressures have become slightly elevated, and there has been post- treatment bleeding. Will obtain AVF US of left LE AVF.Will route to scheduling to coordinate US and appointment with Dr. Saravia as soon as possible. SUSHIL Vargas, RN Telephone Encounter - Angie Mcclellan - 01/05/2019 8:54 AM CDT Sofi from [facility] calling, pls call back to discuss Herminio's graft issues at [phone]. AV graft outflow getting quieter, bleeding issues. Routing to Dr Saravia's RN. Angie Mcclellan - Applications Project Manager at [facility] documented in this encounter Plan of Treatment Not on filedocumented as of this encounter Results IR Dialysis Fistulogram Left (01/25/2019 3:10 PM CDT) Anatomical Region Laterality Modality Upper Extremity Radio Fluoroscopy Specimen (Source) Anatomical Location Collection Method / Collectio n Time Received Time / Laterality Volume Addenda Addendum by Isis Reinoso DO on 05/25/2019 4:50 PM CDT Addendum: AIR KERMA: 17.3 mGy ISIS REINOSO DO Impressions 01/25/2019 5:19 PM CDT IMPRESSION: Left lower extremity fistula demonstrating focal severe stenosis at the venous anastomosis, impr irene status post venoplasty. ISIS REINOSO DO Narrative 01/25/2019 5:19 PM CDT INTERVENTIONAL RADIOLOGY DIALYSIS FISTULOGRAM LEFT 01/25/2019 3:10 PM PROCEDURE(S): 1. ??Left lower extremity fistulography. 2. ??Dilation of venous anastomosis MEDICATIONS: 1 ??mL 1% Lidocaine SQ, Harriett sed 1 mg IV, Fentanyl 50 mcg IV. CONTRAST: 20 mL Isovue 300 IV/IA FLUOROSCOPY TIME: 2.8 minutes, 17.3 mGy COMPLICATIONS: None CLINICAL HISTORY/INDICATION: 53-year-old male with a left lower extremity AV fistula. History of outflow stenosis, elevated pressures and prolonged bleeding. PROCEDURE AND FINDINGS: Following a discussion of the risks, delma efits, indications, and alternatives to treatment, appropriate i nformed consent was obtained. The patient was brought to the [facility] ional radiology suite and placed supine on the table. The left low er extremity was prepped and draped in a sterile fashion. ??A timeout was performed per universal protocol policy to confirm the correct p atient, site and procedure to be performed. Local anesthesia was obtained with 1% Li docaine. Access was gained into the fistula directed toward the corey ous outflow using standard micropuncture technique. A micropuncture dilator was placed. A fistulogram was performed which demonstr ates a patent left lower extremity AV fistula. There is a focal s evere stenosis at the venous anastomosis. ??A guidewire was then adva nced through the micropuncture dilator, and exchange was made for a 7 F rench vascular sheath. 10 x 40 mm and 12 x 40 mm balloons were advanced across the stenosis and venoplasty was performed for 2 minutes. ??Post dilation venography was performed and reveals a significant impr ovement in the appearance of the vein. ??The fistula has a strong thr ill upon palpation. ??All wires and sheaths were removed and manual comp ression was held, until hemostasis was achieved. Throughout the procedure, the patient wa s monitored by a radiology nurse for cardiac rhythm which remained stable. Total moderate sedation time was 33 minutes. The patien t tolerated the procedure well and left the interventional radiology yoo ite in stable condition. Procedure Note Isis Reinoso, DO - 2018 INTERVENTIONAL RADIOLOGY DIALYSIS FISTUL OGRAM LEFT 01/25/2019 3:10 PM PROCEDURE(S): 1. Left lower extremity fistulography. 2. Dilation of venous anastomosis MEDICATIONS: 1 mL 1% Lidocaine SQ, Verse d 1 mg IV, Fentanyl 50 mcg IV. CONTRAST: 20 mL Isovue 300 IV/IA FLUOROSCOPY TIME: 2.8 minutes, 17.3 mGy COMPLICATIONS: None CLINICAL HISTORY/INDICATION: 53-year-old male with a left lower extremity AV fistula. History of outflow stenosis, elevated pressures and prolonged bleeding. PROCEDURE AND FINDINGS: Following a discussion of the risks, delma efits, indications, and alternatives to treatment, appropriate i nformed consent was obtained. The patient was brought to the [facility] ional radiology suite and placed supine on the table. The left low er extremity was prepped and draped in a sterile fashion. A timeout w as performed per universal protocol policy to confirm the correct p atient, site and procedure to be performed. Local anesthesia was obtained with 1% Li docaine. Access was gained into the fistula directed toward the corey ous outflow using standard micropuncture technique. A micropuncture dilator was placed. A fistulogram was performed which demonstr ates a patent left lower extremity AV fistula. There is a focal s evere stenosis at the venous anastomosis. A guidewire was then advanc ed through the micropuncture dilator, and exchange was made for a 7 F rench vascular sheath. 10 x 40 mm and 12 x 40 mm balloons were advanced across the stenosis and venoplasty was performed for 2 minutes. Post dilation venography was performed and reveals a significant impr ovement in the appearance of the vein. The fistula has a strong thril l upon palpation. All wires and sheaths were removed and manual comp ression was held, until hemostasis was achieved. Throughout the procedure, the patient wa s monitored by a radiology nurse for cardiac rhythm which remained stable. Total moderate sedation time was 33 minutes. The patien t tolerated the procedure well and left the interventional radiology yoo ite in stable condition. IMPRESSION: Left lower extremity fistula demonstrating focal severe stenosis at the venous anastomosis, impr irene status post venoplasty. ISIS REINOSO DO Jaxon Saravia MD IMG IR ORDERABLES documented in this encounter Visit Diagnoses Diagnosis AVF (arteriovenous fistula) (H) - Primar y Arteriovenous fistula, acquired Other specified complication of vascular prosthetic devices, implants and grafts, sequela ESRD (end stage renal disease) on dialys is (H) End stage renal disease documented in this encounter Care Teams Value Engineer Relationship Specialty Start Date End Date Preet Huff PCP - General 06/24/11 documented as of this encounter
--- OUTSIDE RECORDS SUMMARY | 2022-09-01 20:12 | XMS_ITS | Encounter Summary ---
:1965 Author Organization [facility]ias Address [address] [facility] [place] [address] Care Team Providers Name Role Phone Preet Huff Primary Care Provider Reason for Referral Therapeutic Imaging/IR - Closed Specialty Diagnoses / Procedures Referred By Contact Refer red To Contact Radiology. Diagnoses Other complication of arteriovenous dialysis fistula (H) Jaxon Saravia Interventional Rad Procedures IR Dialysis Fistulogram Left MD Preet [phone] [id number] Referral ID Status Reason Start Date Expiration Date Visits Requ ested Visits Authorized [id number] Closed 08/09/2018 08/09/2019 1 1 Encounter Details Date Type Department Care Team Description 08/09/2018 [facility] Jaxon Saravia MD [address] [id number] Other complication of Encounter [facility] Duncan Oropeza MD [facility] [address] [place], [place] [address] arteriovenous Suites dialysis fistula (H) [address] [phone] Social History Tobacco Use Types Packs/Day Years Used Date Smoking Tobacco: Never Smokeless Tobacco: Never Alcohol Use Standard Drinks/Week Comments No 0 (1 standard drink = 0.6 oz pure alcoho l) Sex Assigned at Date Recorded Not on file documented as of this encounter Last Filed Vital Signs Vital Sign Reading Time Taken Comments Blood Pressure 179/70 08/09/2018 5:35 PM CDT Pulse 61 08/09/2018 2:57 PM CDT Temperature 36.6 ??C (97.8 ??F) 08/09/2018 2:57 PM CDT Respiratory Rate 16 08/09/2018 5:05 PM CDT Oxygen Saturation 100% 08/09/2018 5:35 PM CDT Inhaled Oxygen Concentration - - Weight - - Height - - Body Mass Index - - documented in this encounter Discharge Instructions Discharge InstructionsKate Ho RN - 08/09/2018 4:35 PM CDT Fistulagram Discharge Instructions After you go home: ??? You may resume your normal diet ??? Have an adult stay with you for 6 hours if you received sedation For 24 hours - due to the sedation you received: ??? Relax and take it easy ??? Do NOT make any important or legal decisions ??? Do NOT drive or operate machines at home or at work ??? Do NOT drink alcohol Care of Puncture Site: ??? For the first 48 hrs, check your puncture site every couple hours while you are awake ??? You may remove/change the bandage tomorrow ??? You may shower tomorrow ??? No tub baths, whirlpools or swimming until your puncture site has fully healed ??? If puncture site starts to bleed - apply light pressure to site for 5 minutes or until bleeding stops Activity ??? You should try to elevate your arm for the remainder of today to prevent increased swelling ??? You may go back to your normal activity in 24 hours ??? Wait 48 hours before lifting, straining, exercise or other strenuous activity Medicines: ??? You may resume all your medications ??? For minor pain, you may take Acetaminophen (Tylenol) or Ibuprofen (Advil) Call the provider who ordered this procedure if: ??? Increased pain or a large or growing hard lump around the site ??? Blood or fluid is draining from the site ??? The site is red, swollen, hot or tender ??? Chills or a fever greater than 101 F (38 C) ??? Pain that is getting worse ??? Any questions or concerns Call 911 or go to the Emergency Room if: ??? Severe pain or trouble breathing ??? Bleeding that you cannot control If you have questions call: [facility] Radiology Dept @ [phone] The provider who performed your procedure was ____Dr. Oropeza . documented in this encounter Medications at Time of Discharge Medication Sig Dispensed Refills Start Date End Date AMLODIPINE BESYLATE PO Take 10 mg by mouth 0 four times a week On Non dialysis days which is atorvastatin (LIPITOR) 20 Take 1 tablet (20 [...] mouth 2 0 times daily Take on , on Non-dialysis days oxyCODONE IR (ROXICODONE) Take 1 tablet (5 [...] documented as of this encounter Progress Notes Jaxon Saravia MD - 08/09/2018 6:00 PM CDT Successful Venoplasty of outflow stenosis. Repeat ProCol Duplex in three months. Wm Rani HARPER Kate Ho RN - 08/09/2018 4:45 PM CDT 1630 Returned from IR per cart post fistulogram. (L) thigh dressing Site C/D/I. Plan for discharge to home at [address] Oropeza. 1700 Ride arranged with family member since transport is not able to accommodate our discharge time.Mother at bedside and updated. 1800 Discharged to home with family members. IV dc'd. Ate meal and ambulated without problems. (L) thigh dressing has remained C/D/I. Denies pain. Discharge instructions were reviewed with patient and his mother. Catherine Maldonado RN - 08/09/2018 4:00 PM CDT Interventional Radiology Intra-procedural Nursing Note Patient Name: Herminio Victor Today's Date: August 09, 2018 Start Time: 1558 End of procedure time: 1613 Procedure: Left thigh AV fistulogram and angioplasty Report given to: Genny RN, Care Suites Time pt departs: 1625 Other Notes: Patient in IR2 for left thigh AV fistulogram, consent signed by mother who is a legal decision-maker. Vital signs stable on arrival. 7F sheath used to access fistula at 1603. Angioplasty to venous anastamosis and outflow vein stenosis. Sheath removed at 1614, manual pressure held until hemostasis. Site C/D/I, no hematoma. 1 mg midazolam and 50 mcg fentanyl given for sedation. Catherine Maldonado, RN Kate Ho RN - 08/09/2018 3:47 PM CDT Admitted ambulatory with mother for fistulogram. IV started, labs obtained, consent signed by other.Seen at bedside by Dr. Saravia, Dr. Oropeza and [facility] ASSORTER LAUNDRY. [facility] Hansa KellerJUDITH [facility] - 08/09/2018 3:43 PM CDT Interventional Radiology Pre-Procedure Sedation Assessment Time of Assessment: 3:43 PM Expected Level: Moderate Sedation Indication: Sedation is required for the following type of Procedure: Left thigh arterio venous fistula fistulagram with possible angioplasty with IV moderate sedation Sedation and procedural consent: Risks, benefits and alternatives were discussed with Patient and Relative Mother PO Intake: Appropriately NPO for procedure ASA Class: Class 2 - MILD SYSTEMIC DISEASE, NO ACUTE PROBLEMS, NO FUNCTIONAL LIMITATIONS. Mallampati: Grade 3: Soft palate visible, posterior pharyngeal wall not visible Lungs: Lungs Clear with good breath sounds bilaterally Heart: Normal heart sounds and rate History and physical reviewed and no updates needed. I have reviewed the lab findings, diagnostic data, medications, and the plan for sedation. I have determined this patient to be an appropriate candidate for the planned sedation and procedure and have reassessed the patient IMMEDIATELY PRIOR to sedation and procedure. Hansa Keller [facility] [facility] [employer] [facility] Associated attestation - Duncan Oropeza MD - 08/09/2018 4:17 PM CDT Physician Attestation Krupa, Duncan Oropeza, saw and evaluated Herminio Victor as part of a shared visit. I have reviewedand discussed with the advanced practice provider their history, physical and plan. I personally reviewed the vital signs, medications, labs and imaging. My scott history or physical exam findings: LLE AV graft, stenosis at venous anastamosis/outflow vein Scott management decisions made by me: graft eval with possible angioplasty Duncan Oropeza Date of Service (when I saw the patient): 08/09/18 documented in this encounter Procedure Notes Duncan Oropeza MD - 08/09/2018 4:16 PM CDT RADIOLOGY POST PROCEDURE NOTE w/ SEDATION Patient name: Herminio Victor : 1965 Pre-procedure diagnosis: ESRD Post-procedure diagnosis: Same Procedure Date/Time: August 09, 2018 4:15 PM Procedure: LLE AV graft evaluation cPTA venous anastamosis/outflow vein Estimated blood loss: None Specimen(s) collected with description: none I determined this patient to be an appropriate candidate for the planned sedation and procedure and reassessed the patient IMMEDIATELY PRIOR to sedation and procedure. The patient tolerated the procedure well with no immediate complications. Significant findings:none See imaging dictation for procedural details. Provider name: Duncan Oropeza Note Keeper(s):None documented in this encounter Plan of Treatment Not on filedocumented as of this encounter Procedures Procedure Name Priority Date/Time Associated Diagnosis Comme nts IR DIALYSIS Routine 08/09/2018 4:13 Other complication of Res ults for this FISTULOGRAM LEFT PM CDT arteriovenous procedure are in dialysis fistula (H) the res ults section. INR STAT 08/09/2018 3:20 Other complication of Res ults for this PM CDT arteriovenous procedure are in dialysis fistula (H) the res ults section. PARTIAL THROMBOPLASTIN STAT 08/09/2018 3:20 Other complicat ion of Results for this TIME PM CDT arteriovenous procedure are in dialysis fistula (H) the res ults section. documented in this encounter Results IR Dialysis Fistulogram Left (08/09/2018 4:13 PM CDT) Anatomical Region Laterality Modality Upper Extremity Radio Fluoroscopy Specimen (Source) Anatomical Location Collection Method / Collectio n Time Received Time / Laterality Volume Impressions 08/10/2018 3:30 PM CDT IMPRESSION: 1. Graft evaluation demonstrating stenos is of the graft vein anastomosis and peripheral outflow vein. 2. Angioplasty of peripheral outflow vei n/graft vein anastomosis with excellent angiographic results.. DUNCAN OROPEZA MD Narrative 08/10/2018 3:30 PM CDT PROCEDURE(S): 1. Left upper extremity fistulography. 2. Conventional angioplasty of graft vei n anastomosis and peripheral outflow vein DATE OF PROCEDURE: 08/09/2018 4:13 PM OPERATORS: ?? Duncan Oropeza MD MEDICATIONS: ?? 1% Lidocaine SQ, Versed 1 mg IV, Fentany l 50 mcg IV CONTRAST: 50 mL Isovue 300 IV/IA REFERENCED AIR KERMA: 24 mGy FLUOROSCOPY TIME: 1 minutes ESTIMATED BLOOD LOSS: Minimal COMPLICATIONS: None PRE-PROCEDURE DIAGNOSIS: End-stage renal disease POST-PROCEDURE DIAGNOSIS: Same CLINICAL HISTORY/INDICATION: 53-year-old male with left 5 AV graft, u ltrasound showing stenosis at the graft vein anastomosis and the perip heral outflow vein. History of banding of the inflow secondary to steal . PROCEDURE AND FINDINGS: Following a discussion of the risks, delma efits, indications, and alternatives to treatment, appropriate i nformed consent was obtained. The patient was brought to the [facility] radiology suite and placed supine on the table. The left thi gh was prepped and draped in a sterile fashion. ??A timeout was perform ed per hospital universal protocol policy to confirm the correct p atient, site and procedure to be performed. Local anesthesia was obtained with 1% Li docaine. Access was gained into the graft directed toward the venou s outflow using standard micropuncture technique. A micropuncture dilator was placed. A fistulogram was performed from the arter ial anastomosis to the right atrium. ??Images reveal stenosis at the graft vein anastomosis and the peripheral outflow vein. The common femo ral and iliac veins are widely patent. There is narrowing of the periar terial anastomotic inflow secondary to prior banding.. ??A guidewi re was then advanced through the micropuncture dilator, and exchange was made for a 7 Burkinan vascular sheath. ??A 7 mm balloon was ad vanced across the stenosis and angioplasty was performed for 2 minutes. ??Post dilation angiogram was performed and reveals resolution of the stenosis. ??The graft has a thrill upon palpation. ??All wires and s heaths were removed and manual compression was held, until hemostasis w as achieved. Throughout the procedure, the patient wa s monitored by a radiology nurse for cardiac rhythm, blood pressure and oxygen saturation which remained stable. Total sedation time was 15 minutes. The patient tolerated the procedure well and left in terventional radiology in stable condition. Procedure Note Duncan Oropeza MD - 08/10/2018For matting of this note might be different from the original. PROCEDURE(S): 1. Left upper extremity fistulography. 2. Conventional angioplasty of graft vei n anastomosis and peripheral outflow vein DATE OF PROCEDURE: 08/09/2018 4:13 PM OPERATORS: Duncan Oropeza MD MEDICATIONS: 1% Lidocaine SQ, Versed 1 mg IV, Fentany l 50 mcg IV CONTRAST: 50 mL Isovue 300 IV/IA REFERENCED AIR KERMA: 24 mGy FLUOROSCOPY TIME: 1 minutes ESTIMATED BLOOD LOSS: Minimal COMPLICATIONS: None PRE-PROCEDURE DIAGNOSIS: End-stage renal disease POST-PROCEDURE DIAGNOSIS: Same CLINICAL HISTORY/INDICATION: 53-year-old male with left 5 AV graft, u ltrasound showing stenosis at the graft vein anastomosis and the perip heral outflow vein. History of banding of the inflow secondary to steal . PROCEDURE AND FINDINGS: Following a discussion of the risks, delma efits, indications, and alternatives to treatment, appropriate i nformed consent was obtained. The patient was brought to [facility] ional radiology suite and placed supine on the table. The left thi gh was prepped and draped in a sterile fashion. A timeout was performed per hospital universal protocol policy to confirm the correct p atient, site and procedure to be performed. Local anesthesia was obtained with 1% Li docaine. Access was gained into the graft directed toward the venou s outflow using standard micropuncture technique. A micropuncture dilator was placed. A fistulogram was performed from the arter ial anastomosis to the right atrium. Images reveal stenosis at the gr aft vein anastomosis and the peripheral outflow vein. The common femo ral and iliac veins are widely patent. There is narrowing of the periar terial anastomotic inflow secondary to prior banding.. A guidewire was then advanced through the micropuncture dilator, and exchange was made for a 7 Burkinan vascular sheath. A 7 mm balloon was adva nced across the stenosis and angioplasty was performed for 2 minutes. Post dilation angiogram was performed and reveals resolution of the stenosis. The graft has a thrill upon palpation. All wires and she aths were removed and manual compression was held, until hemostasis w as achieved. Throughout the procedure, the patient wa s monitored by a radiology nurse for cardiac rhythm, blood pressure and oxygen saturation which remained stable. Total sedation time was 15 minutes. The patient tolerated the procedure well and left in terventional radiology in stable condition. IMPRESSION: 1. Graft evaluation demonstrating stenos is of the graft vein anastomosis and peripheral outflow vein. 2. Angioplasty of peripheral outflow vei n/graft vein anastomosis with excellent angiographic results.. DUNCAN OROPEZA MD Jaxon Saravia MD IMG IR ORDERABLES (ABNORMAL) Partial thromboplastin time (08/09/2018 3:20 PM CDT) P athologist Signature PTT 54 (H) 22 - 37 sec 08/09/2018 [place] 3:54 PM CDT [facility] Specimen Anatomical Collection Method Collection Time Receive d Time (Source) Location / / Volume Laterality Blood specimen 08/09/2018 3:20 PM 018 3:37 (specimen) CDT PM CDT Jaxon Saravia MD LAB - BLOOD ORDERABLES Performing Organization Address City/State/ZIP Code Phon e Number [facility] [address] [place] [address] [phone] [facility] [address] [place] [address], [place] [phone] (ABNORMAL) INR (08/09/2018 3:20 PM CDT) P athologist Signature INR 2.81 (H) 0.86 - 1.14 08/09/2018 [place] 3:54 PM CDT [facility] Specimen Anatomical Collection Method Collection Time Receive d Time (Source) Location / / Volume Laterality Blood specimen 08/09/2018 3:20 PM 018 3:37 (specimen) CDT PM CDT Jaxon Saravia MD LAB - BLOOD ORDERABLES Performing Organization Address City/State/ZIP Code Phon e Number [facility] [address] [place] [address] [phone] [facility] [address] [place] [address], [place] [phone] documented in this encounter Visit Diagnoses Diagnosis Other complication of arteriovenous dial ysis fistula (H) Other complications due to other vascula r device, implant, and graft documented in this encounter Administered Medications Inactive Administered Medications - up to 3 most recent administrations Medication Order MAR Action Action Date Dose Rate Site dextrose 50 % injection 25-50 mL 25-50 mL, Intravenous, EVERY 15 MIN PRN, low blood sug ar, Administer over 1-5 Minutes, Starting on Tue08/09/18 at 1459, Use if have IV access, blood glucose less than 70 mg/dL and meet dose criteri a below: Dose if conscious and alert (or disorientated) and NPO = 25 mL Dose if u nconscious / not alert = 50 mL Vesicant. For ordered doses up to 25 g, give IV Pu sh undiluted. Give each 5g over 1 minute., IR Pre-procedure fentaNYL (PF) (SUBLIMAZE) 100 MCG/2ML in jection Starting on 08/09/18 at 1553, For 1 dose, Catherine Maldonado : cabinet override For ordered IV doses 1-100 mcg give IV Push undiluted over a minimum of 3-5 minutes. fentaNYL (PF) (SUBLIMAZE) injection 25-5 0 mcg Given 08/09/2018 4:00 PM CDT 50 mcg 25-50 mcg, Intravenous, EVERY 5 MIN PRN, severe pain (7-10), If inadequate response may repeat 25 mcg IV slowly every 5 min PRN severe pain; when verbally requested by provider., Administer over 2 Minutes, Starting on 08/09/18 at 1543, Doses can be exceeded under direct oversight [...] oversedation., Administer over 1 Minutes, Starting on W ed 08/09/18 at 1543, Give over 15 seconds. Maximum total dose [...] May repeat x 1 only, Starting on Tue08/09/18 at 1459, May gi ve subcutaneous or IM. ONLY [...] PRN, low blo od sugar, Starting on Tue08/09/18 at 1459, Give 15 g for blood glucose 51 [...] I and O flowsheet., IR Pre-procedure heparin 10,000 units in 1000 mL NS New Bag 08/09/2018 4:05 PM CDT 10,000 Units 10,000 Units (1,000 mL), TABLE SOLN, CONTINUOUS PRN, Catheter prep table solution use as directed by provider., Starting on Tue08/09/18 at 1605, Maximum total dose 5 liters. FOR USE TABLE SOLUTION ONLY. NOT FOR IV OR IA INFUSION., IR Intra-procedure iopamidol (ISOVUE-300) IV solution 61% 5 0 mL Given 08/09/2018 4:15 PM CDT 50 mLs 50 mL, Intravenous, ONCE, On Tue08/09/18 at 1600, For 1 dose, Supplied and administered by Radiology., IR Intra-procedure lidocaine (LMX4) cream Topical, EVERY 1 HOUR PRN, pain, with VA D insertion or accessing implanted port., Starting on Tue08/09/18 at 1459, Do NOT give if patient has a history of allergy to any local anesthetic or any anabell product. Apply 30 minutes prior to VAD insertion or port access. MAX Dose: 2.5 g (?? of 5 g t ube), IR Pre-procedure lidocaine (PF) (XYLOCAINE) 1 % Given by Other 08/09/2018 4:14 PM CDT 1 mL injection 1-30 mL 1-30 mL, Subcutaneous, ONCE PRN, for local anesthetic.?When verbally ordered by prescriber during the procedure., Starting on Tue08/09/18 at 1543, For 1 dose, Dose to be divided into smaller volumes appropriate for the procedure., IR Intra-procedure lidocaine 1 % 1 mL 1 mL, Other, EVERY 1 HOUR PRN, mild pain with VAD insertion or accessing implanted port, Starting on Tue08/09/18 at 1459, Do NOT give if patient has a history of allergy to any local anesthetic or any anabell product. MAX dose 1 mL subcutaneous OR intradermal in divided doses., IR Pre-procedure lidocaine 1 % injection Starting on Tue08/09/18 at 1542, For 1 dose, Isis Morrissey : cabinet override midazolam (VERSED) 1 MG/ML injection Starting on Tue08/09/18 at 1553, For 1 dose, Catherine Maldonado : cabinet override For ordered IV doses 0.1-2.5 mg give IV Push slowly titrated over a minimum of 2 minutes. Dilute each 1mg in 4mL of NS. midazolam (VERSED) injection 0.5-1 mg Given 08/09/2018 4:00 PM CDT 1 mg 0.5-1 mg, Intravenous, Administer over 1 Minutes, EVERY 4 MIN PRN, sedation, If inadequate response may repeat 0.5 mg IV slowly every 4 minutes PRN sedation until desired response; when verbally requested by provider., Starting on Tue08/09/18 at 1543, Doses can be exceeded under direct oversight of patient by physician. For ordered IV doses 0.1-2.5 mg give IV Push slowly titrated over a minimum of 2 minutes. Dilute each 1mg in 4mL of NS., IR Intra-procedure naloxone (NARCAN) injection 0.1-0.4 mg 0.1-0.4 mg, Intravenous, EVERY 2 MIN PRN , opioid reversal, Starting on Tue08/09/18 at 1543, For respiratory rate LESS than or EQUAL [...] 3 mL 3 mL, Intracatheter, EVERY 1 HOUR PRN, line flush, Sta rting on Tue08/09/18 at 1459, for peripheral IV flush post IV meds, IR Pre-pro cedure sodium chloride (PF) 0.9% PF flush 3 mL 3 mL, Intracatheter, EVERY 8 HOURS, First dose on Tue08/09/18 at 1500, And Q1H PRN, to lock peripheral IV dormant line., IR Pre-proce dure Take other usual AM meds with small amou nt of water CONTINUOUS PRN, Starting on Tue08/09/18 at 1459, Until Tue08/09/18 at 202, IR Pre-procedure documented in this encounter Active and Recently Administered Medications Times are shown in CDT. Scheduled Medication Order 08/07/2018 08/08/2018 08/09/2018 iopamidol (ISOVUE-300) IV solution 61% 50 mL (COMPLETED) 1615 (Given - Provider: Isis Morrissey) 50 mL, Intravenous, ONCE, On Tue 8 at 1600, For 1 dose, Supplied and administered by Radiology., IR Intra-procedure sodium chloride (PF) 0.9% PF flush 3 mL 1500 (Canceled Entry - Provider: Orders Generic Provider - Comment: Automatically canceled at discontinue of medication order) 3 mL, Intracatheter, EVERY 8 HOURS, Firs t dose on Tue08/09/18 at 1500, And Q1H PRN, to lock peripheral IV dormant line., IR Pre-procedure PRN Medication Order 08/07/2018 08/08/2018 08/09/2018 dextrose 50 % injection 25-50 mL(Linked Group 1) 25-50 mL, Intravenous, EVERY 15 MIN PRN, low blood sugar, Administer over 1-5 Minutes, Starting on Tue08/09/18 at 1459, Use if have IV access, blood glucose less than 70 mg/dL and meet dose criteria be low: Dose if conscious and alert (or dis orientated) and NPO = 25 mL Dose if unconscious / not alert = 50 mL Vesicant. For ordered doses up to 25 g, give IV Push undiluted. Give each 5g over 1 minute., IR Pre-procedure fentaNYL (PF) (SUBLIMAZE) injection 25-50 mcg 1600 (Given - Provider: Catherine Maldonado RN) 25-50 mcg, Intravenous, EVERY 5 MIN PRN, severe pain, If inadequate response may repeat 25 mcg IV slowly every 5 min PRN severe pain; when verbally requested by provider., Administer over 2 Minutes, Sta rting on Tue08/09/18 at 1543, Doses can be exceeded under direct oversight [...] oversedation., Administer over 1 Minutes, Starting on Tue08/09/18 at 1543, Give over 15 seconds. Maximum total dose of 1 mg. Continue monitoring until discharge criteria met for a minimum of 2 hours. Irritant. For ordered IV doses 0.1-1 mg, give IV Push undil uted. Administer each 0.2mg over 15 seconds., IR Intra-procedure glucagon injection 1 mg(Linked Group 1) 1 mg, Subcutaneous, EVERY 15 MIN PRN, lo w blood sugar, May repeat x 1 only, Starting on Tue08/09/18 at 1459, May give subcutaneous or IM. ONLY use glucagon IF patient has NO IV access AND is UNABLE to swallow AND blood glucose is LESS than o r EQUAL to 50 mg/dL. If ordered IV, give IV Push over 1 minute. Reconstitute with 1mL sterile water., IR Pre-procedure glucose gel 15-30 g(Linked Group 1) 15-30 g, Oral, EVERY 15 MIN PRN, low blo od sugar, Starting on Tue08/09/18 at 1459, Give 15 g for blood glucose 51 to 69 mg/dL IF patient is conscious and able to swallow. Give 30 g for blood glucose le ss than or equal to 50 mg/dL IF [...] I and O flowsheet., IR Pre-procedure heparin 10,000 units in 1000 mL NS 1605 (New Bag - Provider: Catherine Maldonado, LINDA) 10,000 Units (1,000 mL), TABLE SOLN, CON TINUOUS PRN, Catheter prep table solution use as directed by provider., Starting on Tue08/09/18 at 1605, Maximum total dose 5 liters. FOR USE TABLE SOLUTION O NLY. NOT FOR IV OR IA INFUSION., IR Intra-procedure lidocaine (LMX4) cream Topical, EVERY 1 HOUR PRN, pain, with VA D insertion or accessing implanted port., Starting on Tue08/09/18 at 1459, Do NOT give if patient has a history of allergy to any local anesthetic or any anabell product. Apply 30 minutes prior to VAD insertion or port access. MAX Dose: 2.5 g (?? of 5 g tube), IR Pre-procedure lidocaine (PF) (XYLOCAINE) 1 % injection 1-30 mL (COMPLETED) 1614 (Given by Other - Provider: Catherine Maldonado, LINDA - Comment: Dr. Oropeza) 1-30 mL, Subcutaneous, ONCE PRN, for loc al anesthetic.?When verbally ordered by prescriber during the procedure., Starting on Tue08/09/18 at 1543, For 1 dose, Dose to be divided into smaller volumes appropriate for the procedure., IR Intra-procedure lidocaine 1 % 1 mL 1 mL, Other, EVERY 1 HOUR PRN, mild pain with VAD insertion or accessing implanted port, Starting on Tue08/09/18 at 1459, Do NOT give if patient has a history of allergy to any local anesthetic or any anabell product. MAX dose 1 mL subcutane ous OR intradermal in divided doses., IR Pre-procedure midazolam (VERSED) injection 0.5-1 mg 1600 (Given - Provider: Catherine Maldonado, RN) 0.5-1 mg, Intravenous, Administer over 1 Minutes, EVERY 4 MIN PRN, sedation, If inadequate response may repeat 0.5 mg IV slowly every 4 minutes PRN sedation until desired response; when verbally request ed by provider., Starting on Tue 8 at 1543, Doses can be exceeded under direct oversight of patient by physician. For ordered IV doses 0.1-2.5 mg give IV Push slowly titrated over a minimum of 2 minutes. Dilute each 1mg in 4mL of NS., IR Intra-procedure naloxone (NARCAN) injection 0.1-0.4 mg 0.1-0.4 mg, Intravenous, EVERY 2 MIN PRN , opioid reversal, Starting on Tue08/09/18 at 1543, For respiratory rate LESS than or EQUAL to 8. Partial reversal dose: 0.1 mg titrated q 2 minutes for Analgesi a Side Effects Monitoring Sedation Level of 3 (frequently drowsy, arousable, drifts to sleep during conversation).Full reversal dose: 0.4 mg bolus for Analgesia Side Effects Monitoring Sedation Level of 4 (somnolent, minimal or no response to stimulation). For ordered IV doses 0.1- 2mg give IVP. Give each 0.4mg over 15 seconds in emergency situations. For non- emergent situations further dilute in 9mL o f NS to facilitate titration of response., IR Intra-procedure sodium chloride (PF) 0.9% PF flush 3 mL 3 mL, Intracatheter, EVERY 1 HOUR PRN, l ine flush, Starting on Tue08/09/18 at 1459, for peripheral IV flush post IV meds, IR Pre-procedure Take other usual AM meds with small amount of water CONTINUOUS PRN, Starting on Tue08/09/18 at 1459, Until Tue08/09/18 at 2020, IR Pre-procedure Linked Groups Order Group 1: glucose gel 15-30 gJump to med 15-30 g, Oral, EVERY 15 MIN PRN, low blo od sugar, Starting on Tue08/09/18 at 1459
Give 15 g for blood glucose 51 to 69 mg/dL IF patient is conscious and able to swallow. Give 30 g for blood gl ucose less than or equal to 50 mg/dL IF patient is conscious and able to swallow. Do NOT give glucose gel via enteral tube. IF patient has enteral tube: give apple juice 120 mL (4 oz or 15 g of CHO) via enteral tube for blo od glucose 51 to 69 mg/dL. Give apple juice 240 mL (8 oz or 30 g of CHO) via enteral tube for blood glucose less than or equal to 50 mg/dL.&amp ;nbsp; ~Oral gel is preferable for conscious and able to swallow patient. ~IF gel unavailable or patient refuses may provide apple juice 120 mL (4 oz or 15 g of CHO). Document juice on I and O flowsheet.
IR Pre-procedure Or dextrose 50 % injection 25-50 mLJump to med 25-50 mL, Intravenous, EVERY 15 MIN PRN, low blood sugar, Administer over 1-5 Minutes, Starting on Tue08/09/18 at 1459
Use if have IV access, blood glucose less than 70 mg/dL and meet dose cri teria below: Dose if conscious and alert (or [...] May repeat x 1 only, Starting on Tue08/09/18 at 1459
May give subcutaneous or IM. ONLY use glucagon IF patient has NO IV access AND is UN ABLE to swallow AND blood glucose is LES S than or EQUAL to 50 mg/dL. If ordered IV, give IV Push over 1 minute. Reconstitute with 1mL sterile water.
IR Pre-procedure documented in this encounter Care Teams Nuclear Pharmacist Relationship Specialty Start Date End Date Preet Huff PCP - General 06/24/11 documented as of this encounter
--- OUTSIDE RECORDS SUMMARY | 2022-09-01 20:12 | XMS_ITS | Encounter Summary ---
:1965 Author Organization [place] Address [address] [facility] [place] [address] Care Team Providers Name Role Phone Preet Huff Primary Care Provider Encounter Details Date Type Department Care Team Description 06/05/2019 Telephone [facility] Vascular aJxon Saravia, Clinic Evelio HARPER [address] [place] [id number] [place] [address] [phone] (Wo rk) Social History Tobacco Use Types Packs/Day Years Used Date Smoking Tobacco: Never Smokeless Tobacco: Never Alcohol Use Standard Drinks/Week Comments No 0 (1 standard drink = 0.6 oz pure alcoho l) Sex Assigned at Date Recorded Not on file documented as of this encounter Miscellaneous Notes Telephone Encounter - Mona Vang RN - 06/07/2019 11:[address] Saravia updated fistulogram was completed in January 2019. Will keep patient as scheduled. SUSHIL Vargas, RN Telephone Encounter - Janell Edgar RN - 06/05/2019 5:03 PM CDT Pt hx of left thigh ProCol dialysis access graft. Per Dr. Saravia, pt to have f/u with him as previously scheduled in 3 months (see Dr. Saravia's note). Pt does not need OV before then. Routing to Dr. Saravia's RN as fyi. Janell Edgar, LUISN, RN documented in this encounter Plan of Treatment Not on filedocumented as of this encounter Visit Diagnoses Not on filedocumented in this encounter Care Teams Supervisor Carding Relationship Specialty Start Date End Date Preet Huff PCP - General 06/24/11 documented as of this encounter
--- OUTSIDE RECORDS SUMMARY | 2022-09-01 20:12 | XMS_ITS | Encounter Summary ---
:1965 Author Organization [place] Address [address] [place] [address] Care Team Providers Name Role Phone Preet Huff Primary Care Provider Reason for Referral Diagnostic Imaging Ultrasound - Closed Specialty Diagnoses / Procedures Referred By Contact Refer red To Contact Radiology. Diagnoses Other specified complication of vascular prosthetic devices, implants and grafts, sequela ESRD (end stage renal disease) on dialysis (H) Jaxon Saravia Sh Ultrasound Procedures US Ext Arterial Venous Dialys Acs Graft [address] [place] [address] [place] [id number] Referral ID Status Reason Start Date Expiration Date Visits Requ ested Visits Authorized [id number] Closed 03/10/2018 03/10/2019 1 1 Reason for Visit Diagnostic Imaging Ultrasound - Closed Specialty Diagnoses / Procedures Referred By Contact Refer red To Contact Radiology. Diagnoses Other specified complication of vascular prosthetic devices, implants and grafts, sequela ESRD (end stage renal disease) on dialysis (H) Jaxon Saravia Sh Ultrasound Procedures US Ext Arterial Venous Dialys Acs Graft [address] [place] [address] [place] [id number] Referral ID Status Reason Start Date Expiration Date Visits Requ ested Visits Authorized [id number] Closed 03/10/2018 03/10/2019 1 1 Encounter Details Date Type Department Care Team Description 08/09/2018 Hospital Encounter [facility] Jaxon Saravia Ot her specified complication of vascular prosthetic devices, implants and grafts, sequela ; Ariane Oviedo MD ESRD (end stage renal disease) on dialys is (H) [address] [id number] [place] [address] [phone] Social History Tobacco Use Types Packs/Day Years [...] daily Take on MWFSun, on Non-dialysis days oxyCODONE IR (ROXICODONE) Take [...] Associated Diagnosis Comme nts US EXTREMITY Routine 08/09/2018 2:15 PM Other specified Result s for this ARTERIAL VENOUS CDT complication of procedure are in DIALYSIS ACCESS vascular prosthetic the r esults GRAFT devices, implants and sectio n. grafts, sequela ESRD (end stage renal disease) on dialysis (H) documented in this encounter Results US Ext Arterial Venous Dialys Acs Graft (08/09/2018 2:15 PM CDT) Anatomical Region Laterality Modality Vascular, Abdomen/Pelvis Ultrasound Specimen (Source) Anatomical Location Collection Method / Collectio n Time Received Time / Laterality Volume Impressions 08/10/2018 5:07 PM CDT IMPRESSION: Patent left leg dialysis graft with possible areas of narrowing as described above. MICHELE FUENTES MD Narrative 08/10/2018 5:07 PM CDT ULTRASOUND EXTREMITY ARTERIOVENOUS DIALYSIS ACCESS GRAFT ??08/09/2018 2:15 PM HISTORY: ??53-year-old male status post a left superficial femoral artery to superficial femoral vein ProCo l dialysis graft. COMPARISON: Ultrasound dated 12/07/2017 FINDINGS: Color Doppler and spectral wav eform analysis performed. The inflow artery and outflow vein are evalu ated. The graft is patent. Ultrasound indicate s a significant stenosis in the outflow superficial femoral vein jus t past the venous anastomosis. Luminal diameter of the vein in this are a is 2.4 mm and peak velocity equals 522 cm/s. There is an elevation in peak velocity w ithin the ProCol graft in the distal thigh in an area of banding. This equals 393 cm/s and corresponds to a luminal diameter of 4.4 mm. Diameters of the remaining graft range between 17.0 and 9 .2 mm. Procedure Note Michele Fuentes MD - 08/10/2018F ormatting of this note might be different from the original. ULTRASOUND EXTREMITY ARTERIOVENOUS DIALY SIS ACCESS GRAFT 08/09/2018 2:15 PM HISTORY: 53-year-old male status post a left superficial femoral artery to superficial femoral vein ProCo l dialysis graft. COMPARISON: Ultrasound dated 12/07/2017 FINDINGS: Color Doppler and spectral wav eform analysis performed. The inflow artery and outflow vein are evalu ated. The graft is patent. Ultrasound indicate s a significant stenosis in the outflow superficial femoral vein jus t past the venous anastomosis. Luminal diameter of the vein in this are a is 2.4 mm and peak velocity equals 522 cm/s. There is an elevation in peak velocity w ithin the ProCol graft in the distal thigh in an area of banding. This equals 393 cm/s and corresponds to a luminal diameter of 4.4 mm. Diameters of the remaining graft range between 17.0 and 9 .2 mm. IMPRESSION: Patent left leg dialysis gra ft with possible areas of narrowing as described above. MICHELE FUENTES MD Jaxon Saravia MD IMG US ORDERABLES documented in this encounter Visit Diagnoses Diagnosis Other specified complication of vascular prosthetic devices, implants and grafts, sequela ESRD (end stage renal disease) on dialys is (H) End stage renal disease documented in this encounter Care Teams M1 Armor Crewman Relationship Specialty Start Date End Date Preet Huff PCP - General 06/24/11 documented as of this encounter
--- OUTSIDE RECORDS SUMMARY | 2022-09-01 20:12 | XMS_ITS | Encounter Summary ---
:1965 Author Organization [place] Address [address] [facility] [place] [address] Care Team Providers Name Role Phone Preet Huff Primary Care Provider Encounter Details Date Type Department Care Team Description 08/09/2018 Office Visit [facility] Jaxon SaraviaF (art eriovenous fistula) (H) (Primary Dx); Vascular Clinic Mk Oviedo MD ESRD (end stage renal disease) on dialys is (H) [address] [place] [address] [place] [id number] Social History Tobacco Use Types Packs/Day Years Used Date Smoking Tobacco: Never Smokeless Tobacco: Never Alcohol Use Standard Drinks/Week Comments No 0 (1 standard drink = 0.6 oz pure alcoho l) Sex Assigned at Date Recorded Not on file documented as of this encounter Progress Notes Jaxon Saravia MD - 08/09/2018 2:45 PM CDT Images from the original note were not included. [facility] Herminio Victor and his aunt return to see us at the clinic today. He is on chronic hemodialysisvia a left above-knee popliteal artery to proximal superficial femoral artery Procol graft. This wasplaced due to no upper extremity access and thrombosed right groin loop graft. Also had an infected l eft loop graft that required removal. He dialyzes at the [facility] unit every Nsaegfs-Elbq[place]ct-Crxxxlvy. He developed a nonhealing traumatic left heel ulcer. He does have known arterial insufficiency. His Procol graft had evidenceof a steal syndrome. We banded the inflow portion of the Procol dialysis graft on 12/16/2017 along with intraoperative angioplasty of the outflow venous stenosis. Heel ulcer was debrided and negative pressure applied. This is now eventually healed over. Patient has PAD with a 1 vessel anterior tibial artery runoff to his foot. He returns for follow-up of his dialysis graft. Apparently this is been functioning well. PMH: Medications: Norvasc, Lipitor, lisinopril, metoprolol, Coumadin. Medical problems have been under good control. Occasional adjustment of Coumadin dosing. Non-smoker. Exam: Appropriate. He is here with his aunt. Mental retardation but functional. VSS Chest= clear. Cardiovascular=RR Strong pulse within left thigh Procol graft. Stable aneurysmal dilatation. No distal edema. Left posterior heel ulcer has completely healed over. Intact motor function and sensation to his left foot. +1-2 Doppler to the left distal anterior tibial artery with no posterior tibial signal Minimal Doppler to right foot but no ischemic changes. Duplex was performed. One can see the area of banding where the diameter is 4.4 mm. Just before thisdiameter is 15.6 mm and after 17 mm to most of the Procol graft. Again there is a stenosis developing in the groin segment of the Procol graft going into the superficial femoral vein with the latter having a diameter of 2.4 mm for several centimeters before measuring over 6 mm. With compression of the Procol graft Doppler flow does not significantly increased to the left foot and thus no clinical steal at this time. Impression: Very adequate flow and successful banding of left Procol graft. However recurrent outflow stenosis in the superficial femoral vein that could lead to failure. I thus feel that a fistulogramis indicated with angioplasty the stenotic area. Hopefully this will not decrease any flow down to his foot which fortunately ulcer is completely healed which is encouraging. Since it is very difficultfor the patient to come to the hospital we will have the fistulogram performed today by my interventional radiology associate Dr. Heart. I reviewed the duplex and old fistulogram's with him and he agrees. This is been discussed with the patient and his aunt. Patient will continue on the Coumadin post procedure. We spent over 25 minutes today with the patient and his aunt with over 50% in counseling. Jaxon Saravia MD Please route or send letter to: [facility] dialysis unit documented in this encounter Plan of Treatment Not on filedocumented as of this encounter Visit Diagnoses Diagnosis AVF (arteriovenous fistula) (H) - Primar y Arteriovenous fistula, acquired ESRD (end stage renal disease) on dialys is (H) End stage renal disease documented in this encounter Care Teams Director Of Field Sales Relationship Specialty Start Date End Date Preet Huff PCP - General 06/24/11 documented as of this encounter
--- OUTSIDE RECORDS SUMMARY | 2022-09-01 20:12 | XMS_ITS | Encounter Summary ---
:1965 Author Organization [place] Address [address] [facility] [place] [address] Care Team Providers Name Role Phone Preet Huff Primary Care Provider Reason for Referral Diagnostic Imaging Ultrasound - Closed Specialty Diagnoses / Procedures Referred By Contact Refer red To Contact Diagnoses Other specified complication of vascular prosthetic devices, implants and grafts, initial encounter (H) AVF (arteriovenous fistula) (H) ESRD (end stage renal disease) on dialysis (H) Jaxon Saravia, Procedures US Ext Arterial Venous Dialys Acs Graft [address] [place] [id number] Referral ID Status Reason Start Date Expiration Date Visits Requ ested Visits Authorized [id number] Closed 08/10/2018 08/10/2019 1 1 Encounter Details Date Type Department Care Team Description 08/10/2018 Orders Only [facility] Jaxon Saravia AVF (art eriovenous fistula) (H) (Primary Dx); Vascular Clinic Mk Oviedo MD ESRD (end stage renal disease) on dialys is (H); [address] her specified complication of vascular prosthetic devices, implants and grafts, initial encounter (H) [address] [place] [address] [place] [address] [phone] Social History Tobacco Use Types Packs/Day Years Used Date Smoking Tobacco: Never Smokeless Tobacco: Never Alcohol Use Standard Drinks/Week Comments No 0 (1 standard drink = 0.6 oz pure alcoho l) Sex Assigned at Date Recorded Not on file documented as of this encounter Plan of Treatment Not on filedocumented as of this encounter Results US Ext Arterial Venous Dialys Acs Graft (10/26/2018 1:09 PM TREE SCOUT) Anatomical Region Laterality Modality Vascular, Abdomen/Pelvis Ultrasound Specimen (Source) Anatomical Location Collection Method / Collectio n Time Received Time / Laterality Volume Impressions 10/26/2018 4:19 PM TREE SCOUT IMPRESSION: 1. Patent left thigh AV fistula. 2. Mild stenosis in outflow vein, though improved since previous exam. PATRICIA OLMSTEAD MD Narrative 10/26/2018 4:19 PM TREE SCOUT ULTRASOUND ??EXTREMITY ARTERIAL VENOUS DIALYSIS ACCESS GRAFT 10/26/2018 1:09 PM HISTORY: 53-year-old patient with left l ower extremity AV fistula. COMPARISON: August 09, 2018. TECHNIQUE: Color Doppler and spectral wa veform analysis obtained through the AV fistula as well as inflow artery and outflow vein. FINDINGS: Superficial femoral artery is patent. AV fistula is patent. There are areas of webbing within the fi stula, though difficult to determine hemodynamically significant st enosis. Pseudoaneurysmal dilatation throughout majority of the fi stula. Mild velocity elevation at the venous outflow, angioplasty site, measuring 4.1 mm in velocity of 358/235 ??cm/second, previously 2.4 m m and velocity of 522/367 cm/second. Total blood flow volume is 28 84 cm/second. Procedure Note Patricia Olmstead MD - 10/26/2018 ULTRASOUND EXTREMITY ARTERIAL VENOUS NGA LYSIS ACCESS GRAFT 10/26/2018 1:09 PM HISTORY: 53-year-old patient with left l ower extremity AV fistula. COMPARISON: August 09, 2018. TECHNIQUE: Color Doppler and spectral wa veform analysis obtained through the AV fistula as well as inflow artery and outflow vein. FINDINGS: Superficial femoral artery is patent. AV fistula is patent. There are areas of webbing within the fi stula, though difficult to determine hemodynamically significant st enosis. Pseudoaneurysmal dilatation throughout majority of the fi stula. Mild velocity elevation at the venous outflow, angioplasty site, measuring 4.1 mm in velocity of 358/235 cm/second, previously 2.4 mm and velocity of 522/367 cm/second. Total blood flow volume is 28 84 cm/second. IMPRESSION: 1. Patent left thigh AV fistula. 2. Mild stenosis in outflow vein, though improved since previous exam. PATRICIA OLMSTEAD MD Jaxon Saravia MD IMG US ORDERABLES documented in this encounter Visit Diagnoses Diagnosis AVF (arteriovenous fistula) (H) - Primar y Arteriovenous fistula, acquired ESRD (end stage renal disease) on dialys is (H) End stage renal disease Other specified complication of vascular prosthetic devices, implants and grafts, initial encounter (H) Other specified complication of vascular prosthetic devices, implants and grafts, initial encounter (H) AVF (arteriovenous fistula) (H) Arteriovenous fistula, acquired ESRD (end stage renal disease) on dialys is (H) End stage renal disease documented in this encounter Care Teams Cash Management Specialist Relationship Specialty Start Date End Date Preet Huff PCP - General 06/24/11 documented as of this encounter
--- OUTSIDE RECORDS SUMMARY | 2022-09-01 20:12 | XMS_ITS | Encounter Summary ---
:1965 Author Organization [place] Address [address] [facility] [place] [address] Care Team Providers Name Role Phone Preet [...] [address] [place] [address] Referral ID Status Reason Start Date Expiration Date Visits Requ ested Visits Authorized [id number] Closed 02/23/2019 02/23/2020 1 1 Encounter Details Date Type Department Care Team Description 02/23/2019 [facility] Jaxon Saravia AVF (art eriovenous fistula) (H) (Primary Dx); Vascular Clinic Mk Oviedo MD Other specified complication of vascular prosthetic devices, implants and grafts, sequjordan [address] [place] [address] [place] [id number] Social History Tobacco Use Types Packs/Day Years [...] vascular prosthetic devices, implants and grafts, sequela AVF (arteriovenous fistula) (H) Arteriovenous fistula, acquired Other specified complication of vascular prosthetic devices, implants and grafts, sequela documented in this encounter Care Teams Linter Operator Relationship Specialty Start Date End Date Preet Huff PCP - General 06/24/11 documented as of this encounter
--- OUTSIDE RECORDS SUMMARY | 2022-09-01 20:12 | XMS_ITS | Encounter Summary ---
:1965 Author Organization [facility] Address [address] [place] [address]. [place] [address] Care Team Providers Name Role Phone Preet [...] Graft [address] [place] [address] Referral ID Status Reason Start Date Expiration Date Visits Requ ested Visits Authorized [id number] Closed 08/10/2018 08/10/2019 1 1 L SAMPLER Reason for Visit Diagnostic Imaging Ultrasound - Closed Specialty Diagnoses / Procedures Referred By Contact Refer red To Contact Diagnoses Other specified complication of vascular prosthetic devices, implants and grafts, initial encounter (H) AVF (arteriovenous fistula) (H) ESRD (end stage renal disease) on dialysis (H) Jaxon Saravia, Procedures US Ext Arterial Venous Dialys Acs Graft [address] [place] [address] Referral ID Status Reason Start Date Expiration Date Visits Requ ested Visits Authorized [id number] Closed 08/10/2018 08/10/2019 1 1 Encounter Details Date Type Department Care Team Description 10/26/2018 Hospital Encounter [facility] Jaxon Saravia Ot her specified complication of vascular prosthetic devices, implants and grafts, initial encounter (H) ; Ariane Oviedo MD AVF (arteriovenous fistula) (H); [address] ESRD (en d stage renal disease) on dialysis (H) [address] [place] [address] [place] [address] [phone] Social History Tobacco Use Types Packs/Day Years [...] daily Take on , on Non-dialysis days omeprazole (PRILOSEC) 20 Take 20 mg by [...] Associated Diagnosis Comme nts US EXTREMITY Routine 10/26/2018 1:09 PM Other specified Result s for this ARTERIAL VENOUS STEEL SAMPLER complication of procedure are in DIALYSIS ACCESS vascular prosthetic the r esults GRAFT devices, implants and sectio n. grafts, initial encounter (H) AVF (arteriovenous fistula) (H) ESRD (end stage renal disease) on dialysis (H) documented in this encounter Results US Ext Arterial Venous Dialys Acs Graft (10/26/2018 1:09 PM STEEL SAMPLER) Anatomical Region Laterality Modality Vascular, Abdomen/Pelvis Ultrasound Specimen (Source) Anatomical Location Collection Method / Collectio n Time Received Time / Laterality Volume Impressions 10/26/2018 4:19 PM STEEL SAMPLER IMPRESSION: 1. Patent left thigh AV fistula. 2. Mild stenosis in outflow vein, though improved since previous exam. PATRICIA OLVERA MD Narrative 10/26/2018 4:19 PM STEEL SAMPLER ULTRASOUND ??EXTREMITY ARTERIAL VENOUS DIALYSIS ACCESS GRAFT [...] is 28 84 cm/second. Procedure Note Patricia Olvera MD - 10/26/2018 ULTRASOUND EXTREMITY ARTERIAL VENOUS [...] vein, though improved since previous exam. PATRICIA OLVERA MD Jaxon Saravia MD IM US ORDERABLES documented in this encounter Visit Diagnoses Diagnosis Other specified complication of vascular prosthetic devices, implants and grafts, initial encounter (H) AVF (arteriovenous fistula) (H) Arteriovenous fistula, acquired ESRD (end stage renal disease) on dialys is (H) End stage renal disease documented in this encounter Care Teams Compensation Manager Relationship Specialty Start Date End Date Preet Huff PCP - General 06/24/11 documented as of this encounter
--- OUTSIDE RECORDS SUMMARY | 2022-09-01 20:12 | XMS_ITS | Encounter Summary ---
:1965 Author Organization [place] Address [address] [place] [address]. [place] [address] Care Team Providers Name Role Phone Preet Huff Primary Care Provider Encounter Details Date Type Department Care Team Description 02/09/2018 Medical Correspondence [facility] Scan, STATEMENT OF Health Info Mgmt Non-Provider MEDICAL NEC ESSITY Srvcs I [address] [place] [id number] Social History Tobacco Use Types Packs/Day Years [...] on filedocumented in this encounter Care Teams Pediatrics Teacher Relationship Specialty Start Date End Date Preet Huff PCP - General 06/24/11 documented as of this encounter
--- OUTSIDE RECORDS SUMMARY | 2022-09-01 20:12 | XMS_ITS | Encounter Summary ---
:1965 Author Organization [place] Address [address] [facility] 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 Encounter Details Date Type Department Care Team Description 10/26/2018 Office Visit [facility] Jaxon Saravia AVF (art eriovenous fistula) (H) (Primary Dx); [facility] Mk Oviedo MD ESRD (end stage renal disease) on dialys is (H); [address] Ot her specified complication of vascular prosthetic devices, implants and grafts, sequela [address] [place] [phone] [place] [address] [phone] Social History Tobacco Use Types Packs/Day Years Used Date Smoking Tobacco: Never Smokeless Tobacco: Never Alcohol Use Standard Drinks/Week Comments No 0 (1 standard drink = 0.6 oz pure alcoho l) Sex Assigned at Date Recorded Not on file documented as of this encounter Last Filed Vital Signs Vital Sign Reading Time Taken Comments Blood Pressure 132/68 10/26/2018 1:48 PM ASSISTANT GENERAL MANAGER Pulse 61 10/26/2018 1:48 PM ASSISTANT GENERAL MANAGER Temperature - - Respiratory Rate - - Oxygen Saturation - - Inhaled Oxygen Concentration - - Weight - - Height - - Body Mass Index - - documented in this encounter Progress Notes Jaxon Saravia MD - 10/26/2018 1:45 PM CST Images from the original note were not included. [facility] Herminio Victor is not returned to see us at the clinic today. He is on chronic hemodialysis vialeft distal superficial femoral to proximal superficial femoral vein Procol graft. He did develop a stenosis in the outflow superficial femoral vein that is been angioplastied several times. Last episode was on 08/09/2018 just beyond the Procol anastomosis. Dialysis access has been working well since that time at the [facility] unit. He also developed a Stage 3 pressure ulcer in his left heel. This is now completely healed over. He does wear orthotics. Exam: Alert and appropriate with chronic baseline slowing. Blood pressure 132/68. Pulse 61 Chest= clear Strong pulse within the left thigh Procol graft. 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 Overlying skin is good. No distal leg swelling. Somewhat dry scaly skin. Left posterior heel ulcer has healed over completely. No palpable pedal pulses consistent with prior exam. Strong monophasic left anterior tibial Dopplersignal. Duplex confirms patency of the left Procol graft. The area of prior angioplasty is now measures 4.1 mm which is improvement. Excellent flow volume of 2884 milliliters per minute. Impression: #1. Patent Procol thigh graft with very good flow rates. Mild stenosis in the outflow superficial femoral vein but of no clinical significance. Repeat duplex ultrasound in 6 months or sooner if venous pressures should be an issue at the dialysis unit. #2. Healed left heel ulcer. Adequate arterial blood flow to left leg. Continue with orthotics. Jaxon Saravia MD . CC: [facility] dialysis unit STANT GENERAL MANAGER documented in this encounter Nursing Notes Joi Russell - 10/26/2018 1:45 PM CST Herminio Victor is a 53 year old male who presents for: Chief Complaint Patient presents with ??? 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 Vitals: Vitals: 10/26/18 1348 BP: 132/68 BP Location: Right arm Patient Position: Chair Cuff Size: Adult Regular Pulse: 61 BMI: Estimated body mass index is 32.11 kg/m?? as calculated from the following: Height as of 12/16/17: 5' 7 (1.702 m). Weight as of 01/26/18: 205 lb (93 kg). Pain Score: Data Unavailable Joi Russell MA STANT GENERAL MANAGER documented in this encounter Miscellaneous Notes Addendum Note - Juan Antonio Collazo RN - 10/26/2018 1:45 PM ASSISTANT GENERAL MANAGER Addended by: JUAN ANTONIO COLLAZO on: 10/26/2018 02:41 PM Modules accepted: Orders STANT GENERAL MANAGER documented in this encounter Plan of Treatment Not on filedocumented as of this encounter Visit Diagnoses Diagnosis AVF (arteriovenous fistula) (H) - Primar y Arteriovenous fistula, acquired ESRD (end stage renal disease) on dialys is (H) End stage renal disease Other specified complication of vascular prosthetic devices, implants and grafts, sequela documented in this encounter Care Teams Supervisor Personnel Clerks Relationship Specialty Start Date End Date Preet Huff PCP - General 06/24/11 documented as of this encounter
--- OUTSIDE RECORDS SUMMARY | 2022-09-01 20:12 | XMS_ITS | Encounter Summary ---
:1965 Author Organization [place] Address [address] [place] [address] Care Team Providers Name Role Phone Preet Huff Primary Care Provider Encounter Details Date Type Department Care Team Description 10/26/2018 Travel Social History Tobacco Use Types Packs/Day [...] on filedocumented in this encounter Care Teams Straddle Bug Operator Relationship Specialty Start Date End Date Preet Huff PCP - General 06/24/11 documented as of this encounter
--- OUTSIDE RECORDS SUMMARY | 2022-09-01 20:12 | XMS_ITS | Encounter Summary ---
:1965 Author Organization [place] Address [address] [place] [address] Care Team Providers Name Role Phone Preet Huff Primary Care Provider Reason for Visit Reason Onset Date Comments Procedure 01/11/2019 LEFT LOWER EXTREMITY FISTULOGRAM, POSSIBLE INTERVENTION Encounter Details Date Type Department Care Team Description 01/11/2019 Telephone [facility] Jaxon Saravia (LEFT LOWER [facility] Mk Oviedo MD EXTREMITY FISTULOGRAM, [address] SS[address] INTERVENTION) [address] [place] [phone] [place] [id number] (Wo rk) Social History Tobacco Use Types Packs/Day Years Used Date Smoking Tobacco: Never Smokeless Tobacco: Never Alcohol Use Standard Drinks/Week Comments No 0 (1 standard drink = 0.6 oz pure alcoho l) Sex Assigned at Date Recorded Not on file documented as of this encounter Miscellaneous Notes Telephone Encounter - Angie Mcclellan - 01/18/2019 9:28 AM CDT Date changed to 01/25/19 at 1:30 pm. Angie Mcclellan - Nursery Laborer at [facility] Telephone Encounter - Angie Mcclellan - 01/11/2019 9:11 AM CDT Type of surgery: LEFT LOWER EXTREMITY FISTULOGRAM, POSSIBLE INTERVENTION Location of surgery: [facility] Date and time of surgery: [id number] at 1:30p Surgeon: Dr Tom Nunes Pre-Op Appt Date: unk Post-Op Appt Date: unk Packet sent out: mailed 01/09/19 Pre-cert/Authorization completed: Sent for PA submission Date: [id number] Angie Mcclellan - Nursery Laborer at [facility] documented in this encounter Plan of Treatment Not on filedocumented as of this encounter Visit Diagnoses Not on filedocumented in this encounter Care Teams Limnologist Relationship Specialty Start Date End Date Preet Huff PCP - General 06/24/11 documented as of this encounter
--- OUTSIDE RECORDS SUMMARY | 2022-09-01 20:12 | XMS_ITS | Encounter Summary ---
:1965 Author Organization [place] [facility] [place] [address] Care Team Providers Name Role Phone Preet Huff Primary Care Provider Reason for Referral Home Health Therapies & Aides Specialty Diagnoses / Procedures Referred By Contact Refer red To Contact David Grey DO [address] [place] [address] Referral ID Status Reason Start Date Expiration Date Visits Requ ested Visits Authorized Reason for Visit Auth/Cert Specialty Diagnoses / Procedures Referred By Contact Refer red To Contact Oncology Diagnoses left heal ulcer; infected and non-healing Foot ulcer (H) [facility] [address] [place] [address] Phone: Referral ID Status Reason Start Date Expiration Date Visits Requ ested Visits Authorized [id number] 01/24/2018 01/24/2019 1 1 Encounter Details Date Type Department Care Team Description 01/23/2018 - Hospital Encounter [facility] Nay Melendrez, End stage renal 01/26/2018 Ariane Castellanos MD disease (H) (Primary Oncology [address] Dx) [address] [place] [address] [place] [phone] (Work) [phone] Social History Tobacco Use Types Packs/Day Years Used Date Smoking Tobacco: Never Smokeless Tobacco: Never Alcohol Use Standard Drinks/Week Comments No 0 (1 standard drink = 0.6 oz pure alcoho l) Sex Assigned at Date Recorded Not on file documented as of this encounter Last Filed Vital Signs Vital Sign Reading Time Taken Comments Blood Pressure 161/70 01/26/2018 1:06 PM CDT Pulse 82 01/25/2018 12:00 AM CDT Temperature 37 ??C (98.6 ??F) 01/26/2018 1:06 PM CDT Respiratory Rate 14 01/26/2018 1:06 PM CDT Oxygen Saturation 100% 01/26/2018 1:06 PM CDT Inhaled Oxygen Concentration - - Weight 93 kg (205 lb) 01/26/2018 8:00 AM CDT Height - - Body Mass Index 32.11 12/16/2017 9:35 AM FUNCTIONAL SKILLS TUTOR documented in this encounter Discharge Summaries David Grey DO - 01/26/2018 12:26 PM CDT [facility] Discharge Summary Hospitalist Date of Admission: 01/23/2018 Date of Discharge: 01/26/2018 Discharging Provider: David Grey DO Discharge Diagnoses 1. Chronic left heel wound 2. Left lower extremity steal syndrome drom ProCol dialysis graft 3. ESRD 4. HTN 5. H/o upper extremity DVT 6. DM type II 7. Anemia of chronic disease History [facility] 52 yo male with a PMH of ESRD, DM-2, DVT on warfarin and HTN who is directly admitted from [facility] for evaluation of left heel ulcer. Patient has history of ESRD with multiple issues with access. He has no UE axis and had thrombosed accesses in right groin. He currently has access in his left femoral artery, but it has required angioplasty in the past. In Nov he developed a ulcer over his left heel. An angiogram was preformed which showed steal syndrome at the fistula. He underwent thigh graft banding, left heel debridement and wound vac placement 12/16/17. He wasdischarged with a wound vac in place and home RN. His wound was being followed by a local podiatristin [place]. Today the wound nurse was concerned about a secondary infection. Julio Cesar was brought tot ER. Work-up with no leukocytosis, normal CRP and ESR 66. Xrays reportedly with no sign of osteomyelitis. Given need for potential debridement as well as dialysis transfer to [facility] was requested. Hospital Course Julio Cesar Sandhu was admitted on 01/23/2018. The following problems were addressed during his hospitalization: Patient transferred here due to concerns of possible secondary infection to his chronic heel wound. Upon arrival here there was no evidence of infection. X-ray did not show osteomyelitis and his WBC was normal. Because of this antibiotics were not initiated and patient remained stable. Vascular surgery evaluated the patient and performed a bedside debridement and placed a wound vac which the patient was discharged with. He was instructed to follow-up with his metal cut off saw operator. With regards to his ESRD, nephrology was consulted and patient received dialysis while here without issue. # Discharge Pain Plan: - Patient currently has NO PAIN and is not being prescribed pain medications on discharge. David Grey, DO Significant Results and Procedures See below Pending Results No pending results Unresulted Labs Ordered in the Past 30 Days of this Admission No orders found from 11/24/2017 to 01/24/2018. Code Status Full Code Primary Care Physician PREET HUFF Physical Exam Temp: 98.3 ??F (36.8 ??C) Temp src: Oral BP: 142/65 Heart Rate: 71 Resp: 14 SpO2: 100 % O2 Device: None (Room air) Vitals: 01/24/18 1013 01/26/18 0750 01/26/18 0800 Weight: 89.8 kg (198 lb) 93 kg (205 lb 0.4 oz) 93 kg (205 lb) Vital Signs with Ranges Temp: [96.3 ??F (35.7 ??C)-98.3 ??F (36.8 ??C)] 98.3 ??F (36.8 ??C) Heart Rate: [66-80] 71 Resp: [14-16] 14 BP: (123-182)/(52-79) 142/65 SpO2: [100 %] 100 % I/O last 3 completed shifts: In: 1380 [P.O.:1380] Out: - Constitutional: Resting comfortably in bed. NAD Eyes: EOMI Respiratory: Clear to auscultation Cardiovascular: RRR. Skin: Dry Musculoskeletal: Left heel is wrapped Discharge Disposition Discharged to home Condition at discharge: Stable Consultations This Hospital Stay NEPHROLOGY IP CONSULT VASCULAR SURGERY IP CONSULT Time Spent on this Encounter IDavid, personally saw the patient today and spent less than or equal to 30 minutes discharging this patient. Discharge Orders Reason for your hospital stay Left heel wound Follow-up and recommended labs and tests Follow up with primary care provider, PREET HUFF, within 7 days for hospital follow- up. No follow up labs or test are needed. Follow-up with podiatry as directed by vascular surgery Activity Your activity upon discharge: activity as tolerated Full Code Diet Follow this diet upon discharge: Orders Placed This Encounter Room Service Dialysis Diet Discharge Medications Current Discharge Medication List CONTINUE these medications which have NOT CHANGED Details AMLODIPINE BESYLATE PO Take 10 mg by mouth four times a week On Non dialysis days which is MWFSun atorvastatin (LIPITOR) 20 MG tablet Take 1 tablet (20 mg) by mouth every evening Qty: 30 tablet, Refills: 3 Associated Diagnoses: Mixed hyperlipidemia BISACODYL PO Take 10 mg by mouth four times a week (Takes 2 x 5mg tablet = 10mg dose) Tuesday, Tuesday, Tuesday, and Tuesday Calcium Acetate, Phos Binder, (CALCIUM ACETATE PO) Take 1,334 mg by mouth 3 times daily (with meals)Takes with meals (2 x 667mg tablet) Cholecalciferol (VITAMIN D3 PO) Take 2,000 Units by mouth every evening lactulose (CHRONULAC) 10 GM/15ML solution Take 15-60 mLs by mouth daily as needed for constipation LISINOPRIL PO Take 40 mg by mouth daily (Takes 2 x 20mg tablet = 40mg ) METOPROLOL TARTRATE PO Take 100 mg by mouth 2 times daily Take on MWFSun, on Non-dialysis days !! oxyCODONE IR (ROXICODONE) 5 MG tablet Take 1-2 tablets (5-10 mg) by mouth every 4 hours as neededfor other (pain control or improvement in physical function. Hold dose for analgesic side effects.) Qty: 30 tablet, Refills: 0 Associated Diagnoses: Post-op pain !! oxyCODONE IR (ROXICODONE) 5 MG tablet Take 1 tablet (5 mg) by mouth daily maximum 6 tablet(s) perday Qty: 30 tablet, Refills: 0 Associated Diagnoses: Ulcer of heel and midfoot, unspecified laterality, with fat layer exposed (H) warfarin (COUMADIN) 4 MG tablet Take 1 tablet (4 mg) by mouth daily Qty: 30 tablet, Refills: 1 Associated Diagnoses: Problem with dialysis access, subsequent encounter !! - Potential duplicate medications found. Please discuss with provider. Allergies Allergies Allergen Reactions ??? Aspirin [Dihydroxyaluminum Aminoacetate] GI Disturbance GI bleeding Data Most Recent 3 CBC's: Recent Labs Lab Test 01/24/18 0655 12/18/17 1025 12/18/17 0701 WBC 3.9* 5.5 5.1 HGB 8.2* 8.3* 8.2* MCV 86 87 87 PLT 179 171 168 Most Recent 3 BMP's: Recent Labs Lab Test 01/24/18 0655 12/17/17 0830 12/16/17 0925 NA 131* 125* 129* POTASSIUM 4.3 5.1 4.9 CHLORIDE 95 84* 88* CO2 20 21 25 BUN 78* 114* 90* CR 13.60* 16.10* 15.00* ANIONGAP 16* 20* 16* JON 8.7 9.0 9.3 GLC 76 100* 87 Most Recent 2 LFT's: Recent Labs Lab Test 12/16/15 1501 AST 17 ALT 16 ALKPHOS 139 BILITOTAL 0.6 Most Recent INR's and Anticoagulation Dosing History: Anticoagulation Dose History Recent Dosing and Labs Latest Ref Rng & Units 12/16/2017 12/16/2017 12/16/2017 12/17/2017 12/18/2017 12/19/2017 01/24/2018 Warfarin 2 mg - - - - 4 mg - - - Warfarin 2.5 mg - - - 2.5 mg - - - - Warfarin 5 mg - - - - - 5 mg - - INR 0.86 - 1.14 6.98(HH) 2.15(H) - 1.54(H) 1.57(H) 2.13(H) 4.21(H) Most Recent 3 Troponin's:No lab results found. Most Recent Cholesterol Panel: Recent Labs Lab Test 12/07/17 1234 CHOL 115 LDL 61 HDL 37* TRIG 84 Most Recent 6 Bacteria Isolates From Any Culture (See EPIC Reports for Culture Details): Recent Labs Lab Test 12/19/15 1801 12/19/15 0840 12/18/15 1000 12/17/15 1945 12/17/15 1546 12/17/15 1502 CULT No anaerobes isolated Moderate growth Staphylococcus aureus This isolate is presumed to be clindamycin resistant based on detection of inducible clindamycin resistance. Erythromycin and clindamycin are resistant, therefore, they are not recommended for use. * Moderate growth Staphylococcus aureus This isolate is presumed to be clindamycin resistant based on detection of inducible clindamycin resistance. Erythromycin and clindamycin are resistant, therefore, they are not recommended for use. * No growth No growth Duplicate request Charge credited No growth Most Recent TSH, T4 and A1c Labs: Recent Labs Lab Test 12/07/17 1234 A1C 5.6 Results for orders placed or performed during the hospital encounter of 12/16/17 XR Surgery NIHARKIA L/T 5 Min Fluoro w Stills Narrative SURGERY C-ARM FLUOROSCOPY LESS THAN 5 MINUTES WITH STILLS 12/16/2017 11:40 AM HISTORY: Left femoral artery. COMPARISON: November 19, 2015. Impression IMPRESSION: Three spot fluoroscopic images obtained intraoperatively during surgical repair of a thigh fistula. The fistula is for dialysis. Total fluoroscopic time 1.4 minutes. PATRICIA OLVERA MD documented in this encounter Discharge Instructions Discharge InstructionsIram Edgar RN - 01/26/2018 2:38 PM CDT Left heel wound care-moistened Aquacel Ag-ABD pad-Kerlix roll change as needed until Wound VAC can be placed. You will have resumption of [facility] for Wound VAC cares. Please call [facility] at [phone] if you have any questions or concerns. cardiology specialist to place Wound VAC on Left Heel Wound on January 27-use previous Wound VAC orders priorto admission. documented in this encounter Medications at Time [...] documented as of this encounter Progress Notes Esme Espinosa RN - 01/26/2018 3:03 PM CDT Pt discharged to home with his uncle providing transportation. Soils Technician reviewed instructions with uncle and he expressed understanding. Pt is cared for by his aunt at home and marketing underwriter spoke with her via telephone and she stated she is comfortable changing the dressing if it bleeds through. Dressing was changed by marketing underwriter prior to discharge (dressing did become saturated with blood while pt sat on edge of bed). Pt was sent with enough dressings to use until wound vac can be placed tomorrow. Pt left floor via wheelchair with NA. Sandee Dunbar RN - 01/26/2018 12:49 PM CDT Potassium Date Value Ref Range Status 01/24/2018 4.3 3.4 - 5.3 mmol/L Final ] Lab Results Component Value Date HGB 8.2 01/24/2018 Weight: 93 kg (205 lb) POST WT 91 kg EDW 89 kg DIALYSIS PROCEDURE NOTE Patient dialyzed for 3.5 hrs on a 3 K bath with a net fluid removal of 2 L. A BFR of 400-450 ml/min was obtained via L upper thigh AVG. Patient was seen by during treatment. Total heparin received during treatment: 0 units. Meds given: Epogen and Hectorol. Complications: Three attempts made prior to successfully cannulating arterial portion of graft, blood clotted quickly during needle insertion. Procedure teaching done, questions answered. Consent verified yes See flowsheet in EPIC for further details and post assessment. Machine water alarm in place and functioning. Chlorine and chloramines checked on water system every4 hours. All safety checks done, air detector on, venous and arterial parameters set. Transducer protectors checked every 15 min. Personally verified previous hepatitis result from last patient run on machine. Pt returned via bed. Outpatient Dialysis at [facility] in [place] on TTHS. Sandee Dunbar RN [facility] Dialysis Dileep Anders MD - 01/26/2018 10:41 AM CDT Assessment and Plan: ESRD: seen on dialysis. Running via LLE graft. 1.5 - 2.0 L UF, 3.5 h with 450 BFR, 35 HCO3 and 3 K. Getting EPO and hectorol on run. Interval History: Hypertension: on norvasc, lisinopril. Anemia: on EPO. DM Foot ulcer: S/P debridement. Review of Systems: No sx on dialysis. Medications: ??? - MEDICATION INSTRUCTIONS for Dialysis Patients - Does not apply See Admin Instructions ??? sodium chloride 0.9% 250 mL Intravenous Once in dialysis ??? sodium chloride 0.9% 300 mL Hemodialysis Machine Once ??? amLODIPine (NORVASC) tablet 10 mg 10 mg Oral Once per day on Sun Tue ??? atorvastatin 20 mg Oral QPM ??? bisacodyl 10 mg Oral Once per day on Sun Tue ??? bupivacaine 1 mL Intradermal Once ??? doxercalciferol 4 mcg Intravenous Once in dialysis ??? epoetin mauricio (EPOGEN,PROCRIT) inj ESRD 4,000 Units Intravenous Once in dialysis ??? insulin aspart 1-7 Units Subcutaneous TID AC ??? insulin aspart 1-5 Units Subcutaneous At Bedtime ??? lisinopril (PRINIVIL/ZESTRIL) tablet 40 mg 40 mg Oral Daily ??? - MEDICATION INSTRUCTIONS - Does not apply Once ??? sodium chloride (PF) 3 mL Intracatheter Q8H ??? - MEDICATION INSTRUCTIONS - Current active medications and ANNUAL CAMPAIGN MANAGER medications reviewed, see medication list for details. Physical Exam: Vitals were reviewed Patient Vitals for the past 24 hrs: BP Temp Temp src Heart Rate Resp SpO2 Weight 01/26/18 1030 165/74 - - 73 - - - 01/26/18 1015 179/69 - - 70 - - - 01/26/18 1000 175/78 - - 71 - - - 01/26/18 0945 182/77 - - 71 - - - 01/26/18 0926 167/79 - - 66 - - - 01/26/18 0800 - - - - - - 93 kg (205 lb) 01/26/18 0734 174/65 98 ??F (36.7 ??C) Oral 74 16 100 % - 01/26/18 0000 158/63 97.4 ??F (36.3 ??C) Oral 80 16 100 % - 01/25/18 1532 129/67 96.3 ??F (35.7 ??C) Oral 76 16 100 % - 01/25/18 1400 - - - - 16 - - 01/25/18 1309 - - - - 16 - - 01/25/18 1213 144/60 - - - - - - Temp: [96.3 ??F (35.7 ??C)-98 ??F (36.7 ??C)] 98 ??F (36.7 ??C) Heart Rate: [66-80] 73 Resp: [16] 16 BP: (129-182)/(60-79) 165/74 SpO2: [100 %] 100 % Temperatures: Current - Temp: 98 ??F (36.7 ??C); Max - Temp Av.2 ??F (36.2 ??C) Min: 96.3 ??F (35.7 ??C) Max: 98 ??F (36.7 ??C) Respiration range: Resp Av Min: 16 Max: 16 Pulse range: No Data Recorded Blood pressure range: Systolic (24hrs), Av , Min:129 , Max:182 ; Diastolic (24hrs), Av, Min:60, Max:79 Pulse oximetry range: SpO2 Av % Min: 100 % Max: 100 % I/O last 3 completed shifts: In: 1380 [P.O.:1380] Out: - Intake/Output Summary (Last 24 hours) at 01/26/18 1041 Last data filed at 01/25/18 1814 Gross per 24 hour Intake 780 ml Output 0 ml Net 780 ml Resting in bed LLE graft with needles in place Heel ulcer with clean dressing. Wt Readings from Last 4 Encounters: 01/26/18 93 kg (205 lb) 12/19/17 90.5 kg (199 lb 8.3 oz) 12/07/17 90 kg (198 lb 8 oz) 04/25/17 90.7 kg (200 lb) Data: Lab Results Component Value Date NA 131 01/24/2018 NA 125 12/17/2017 NA 129 12/16/2017 Lab Results Component Value Date CHLORIDE 95 01/24/2018 CHLORIDE 84 12/17/2017 CHLORIDE 88 12/16/2017 Lab Results Component Value Date BUN 78 01/24/2018 BUN 114 12/17/2017 BUN 90 12/16/2017 Lab Results Component Value Date POTASSIUM 4.3 01/24/2018 POTASSIUM 5.1 12/17/2017 POTASSIUM 4.9 12/16/2017 Lab Results Component Value Date CO2 20 01/24/2018 CO2 21 12/17/2017 CO2 25 12/16/2017 Lab Results Component Value Date CR 13.60 01/24/2018 CR 16.10 12/17/2017 CR 15.00 12/16/2017 Recent Labs Lab Test 01/24/18 0655 12/18/17 1025 12/18/17 0701 WBC 3.9* 5.5 5.1 HGB 8.2* 8.3* 8.2* HCT 26.3* 26.7* 26.2* MCV 86 87 87 PLT 179 171 168 Recent Labs Lab Test 12/16/15 1501 AST 17 ALT 16 ALKPHOS 139 BILITOTAL 0.6 Recent Labs Lab Test 06/17/14 1800 MAG 2.1 Recent Labs Lab Test 08/09/15 1250 06/17/14 0731 06/15/14 0734 PHOS 2.3* 2.6 2.4* Recent Labs Lab Test 01/24/18 0655 12/17/17 0830 12/16/17 0925 JON 8.7 9.0 9.3 Lab Results Component Value Date JON 8.7 01/24/2018 Lab Results Component Value Date WBC 3.9 (L) 01/24/2018 HGB 8.2 (L) 01/24/2018 HCT 26.3 (L) 01/24/2018 MCV 86 01/24/2018 PLT 179 01/24/2018 Lab Results Component Value Date NA 131 (L) 01/24/2018 POTASSIUM 4.3 01/24/2018 CHLORIDE 95 01/24/2018 CO2 20 01/24/2018 GLC 76 01/24/2018 Lab Results Component Value Date BUN 78 (H) 01/24/2018 CR 13.60 (H) 01/24/2018 Lab Results Component Value Date MAG 2.1 06/17/2014 Lab Results Component Value Date PHOS 2.3 (L) 08/09/2015 Creatinine Date Value Ref Range Status 01/24/2018 13.60 (H) 0.66 - 1.25 mg/dL Final 12/17/2017 16.10 (H) 0.66 - 1.25 mg/dL Final 12/16/2017 15.00 (H) 0.66 - 1.25 mg/dL Final 12/07/2017 10.20 (H) 0.66 - 1.25 mg/dL Final 03/06/2016 11.00 (H) 0.66 - 1.25 mg/dL Final 03/05/2016 8.67 (H) 0.66 - 1.25 mg/dL Final Attestation: I have reviewed today's vital signs, notes, medications, labs and imaging. Dileep Anders MD Esme Espinosa RN - 01/26/2018 8:00 AM CDT Pt's heel bleeding through dressing onto floor this am. Reinforced with two more rolls of kerlix. Blood saturated through immediately. Propped on pillow and sent pt in bed to dialysis. Instructed pt toremain in bed for the duration of dialysis. Rober Saravia MD - 01/26/2018 7:56 AM CDT Vascular surgery Julio Cesar Sandhu is doing well. He had a large amount of bleeding from the debrided right posterior heel ulcer that was reinforced by the nursing staff. Patient is denying any pain. EXAM : Afebrile vital signs stable. good pulse and thrill in left thigh ProCol graft Strong +3 monophasic signal within left distal anterior tibial artery. Dressings removed from the left heel. Wound bed is clean and viable. Small amount of bleeding is noted. No visible bone. Redressed with moistened Aquacel Ag-ABD pad-Kerlix roll. Impression: Viable left heel following bedside subcutaneous debridement. I feel the patient can be discharged to home after dialysis today. Home health care can resume negative pressure VAC dressings (they have these). Patient should follow-up with his local metal cut off saw operator in [facility] since coming to see me in the office on a weekly to biweekly process for wound debridement would be very difficult for him. Especially with his dialysis 3 days weekly. Patient has limited walking andshould avoid as much pressure as possible on the heel ulcer . Rober Saravia MD David Grey DO - 01/25/2018 3:35 PM CDT [facility] Hospitalist Progress Note Assessment & Plan Julio Cesar Sandhu is a 52 year old male with a PMH of ESRD (//), HTN, left LE steal syndrome and known left heel wound who is admitted from [facility] with concern for infection of leftheel wound. ? H/o Left LE Steal Syndrome from ProCol dialysis graft s/p banding 12/16/17 Left Heel Wound s/p debridement and wound vac placement 12/16/17 Had debridement and wound vac placement by Dr. Saravia. Currently managed by home RN and local metal cut off saw operator (last eval 01/17). Home RN was concerned for infection. Work-up at OSH showed no leukocytosis. X-ray did not show evidence of osteomyelitis. Bedside debridement performed on 01/25 without issue. - Given no signs of current infection holding off on antibiotics - Vascular surgery following and appreciate their assistance - ANNUAL CAMPAIGN MANAGER oxycodone PRN for pain ? ESRD On dialysis T,,Sat - Nephrology consulted to help with dialysis management - Continue Harris Caps, and calcium acetate ? Essential HTN ANNUAL CAMPAIGN MANAGER regimen includes lisinopril 40 mg and Norvasc 10 mg and Metoprolol 200 mg bid on non dialysis days - Continue daily Lisinopril - Continue Metoprolol and Norvasc on non dialysis days - Hydralazine PRN ?? H/o UE DVT Currently anticoagulated with Coumadin as an outpatient - Holding Coumadin in setting of possible surgery. Will restart once okay with vascular ?? DM, type II Last HgbA1c was 5.6. Currently managed by diet and on no medications as an outpatient. - SSI ? Anemia of Chronic Disease Baseline Hgb 9-10 and was 8.9 at [place] # Pain Assessment: Current Pain Score 01/25/2018 Patient currently in pain? yes Pain score (0-10) 4 Pain location Foot Pain descriptors - Julio Cesar???s pain level was assessed and he currently denies pain. DVT Prophylaxis: Pneumatic Compression Devices Code Status: Prior Disposition: Expected discharge TBD. Still being evaluated by vascular surgery. Will discharge once okay with them David Grey, Text Page (7am to 6pm) Interval History Patient seen and examined. He has no complaints at this time. Pain well controlled. No fevers or chills. -Data reviewed today: I reviewed all new labs and imaging results over the last 24 hours. I personally reviewed no images or EKG's today. Physical Exam Temp: (P) 96.3 ??F (35.7 ??C) Temp src: (P) Oral BP: (P) 129/67 Pulse: 82 Heart Rate: (P) 76 Resp: (P) 16 SpO2: 100 % O2 Device: None (Room air) Vitals: 01/24/18 1013 Weight: 89.8 kg (198 lb) Vital Signs with Ranges Temp: [96.3 ??F (35.7 ??C)-98.2 ??F (36.8 ??C)] (P) 96.3 ??F (35.7 ??C) Pulse: [82] 82 Heart Rate: [69-77] (P) 76 Resp: [16-18] (P) 16 BP: (144-174)/(60-68) (P) 129/67 SpO2: [99 %-100 %] 100 % I/O last 3 completed shifts: In: 1740 [P.O.:1740] Out: 0 Constitutional: Awake, alert, cooperative, no apparent distress Respiratory: Clear to auscultation bilaterally, no crackles or wheezing Cardiovascular: Regular rate and rhythm, normal S1 and S2, and no murmur noted GI: Normal bowel sounds, soft, non-distended, non-tender Skin/Integumen: Skin is dry. No rashes, no cyanosis MSK: Left heel is wrapped Medications ??? - MEDICATION INSTRUCTIONS for Dialysis Patients - Does not apply See Admin Instructions ??? amLODIPine (NORVASC) tablet 10 mg 10 mg Oral Once per day on Sun Tue ??? atorvastatin 20 mg Oral QPM ??? bisacodyl 10 mg Oral Once per day on Sun Tue ??? bupivacaine 1 mL Intradermal Once ??? insulin aspart 1-7 Units Subcutaneous TID AC ??? insulin aspart 1-5 Units Subcutaneous At Bedtime ??? lisinopril (PRINIVIL/ZESTRIL) tablet 40 mg 40 mg Oral Daily ??? sodium chloride (PF) 3 mL Intracatheter Q8H Data Recent Labs Lab 01/24/18 0655 WBC 3.9* HGB 8.2* MCV 86 PLT 179 INR 4.21* NA 131* POTASSIUM 4.3 CHLORIDE 95 CO2 20 BUN 78* CR 13.60* ANIONGAP 16* JON 8.7 GLC 76 Imaging: No results found for this or any previous visit (from the past 24 hour(s)). Rober Saravia MD - 01/25/2018 2:42 PM CDT Vascular Surgery Progress Note S: No complaints O: Vitals: BP Min: 144/60 Max: 174/67 Temp Av.1 ??F (36.7 ??C) Min: 97.8 ??F (36.6 ??C) Max: 98.2 ??F (36.8 ??C) Pulse Av Min: 82 Max: 82 I/O last 3 completed shifts: In: 1340 [P.O.:1340] Out: 1500 [Other:1500] Physical Exam: Left thigh ProCol graft working well. Heel ulcer with necrotic tissue. Bedside full thickness/ subcutaneous Debridement performed Good bleeding. Assessment/Plan: Will re-evaluate ulcer in AM. ? Restart VAC if all tissue viable. Wm. Rani MD Wade Zhang RN - 01/24/2018 2:58 PM CDT Potassium Date Value Ref Range Status 01/24/2018 4.3 3.4 - 5.3 mmol/L Final Lab Results Component Value Date HGB 8.2 01/24/2018 Weight: 89.8 kg (198 lb) POST WT DIALYSIS PROCEDURE NOTE Hepatitis status of previous patient on machine log was checked and verified ok to use with this patients hepatitis status. Patient dialyzed for 3.5 hrs. on a 3 K bath with a net fluid removal of 1.5L. A BFR of 450 ml/min was obtained via a LLE AVG using 15 gauge needles. The patient was seen by Dr. Anders during the treatment. Total heparin received during the treatment: 0 units. Sites held x 20 min then pressure drsgs applied. Meds Given: None. Complications: None. Procedure and ESRD teaching done and questions answered. See flowsheet in EPIC for further details and post assessment. Machine water alarm in place and functioning. Pt returned via WC Vascular Access: Aseptic prep done for both on/off. Report received from: Amol Espinosa RN Report given to: Amol Espinosa RN HEPATITIS B SURFACE ANTIGEN Non-Reactive DATE 06/04/14 HEPATITIS B SURFACE ANTIBODY Immune DATE 12/20/17 Chlorine/Chloramine water system checked every 4 hours. Outpatient Dialysis at [facility] TRS David Grey, - 01/24/2018 12:05 PM CDT [facility] Hospitalist Progress Note Assessment & Plan Julio Cesar Sandhu is a 52 year old male with a PMH of ESRD (//), HTN, left LE steal syndrome and known left heel wound who is admitted from [facility] with concern for infection of leftheel wound. ?? H/o Left LE Steal Syndrome from ProCol dialysis graft s/p banding 12/16/17 Left Heel Wound s/p debridement and wound vac placement 12/16/17 Had debridement and wound vac placement by Dr. Saravia. Currently managed by home RN and local metal cut off saw operator (last eval 01/17). Home RN was concerned for infection. Work-up at OSH showed no leukocytosis. X-ray did not show evidence of osteomyelitis. - Given no signs of current infection holding off on antibiotics - Vascular surgery following and appreciate their assistance. Plan to do bedside debridement today - ANNUAL CAMPAIGN MANAGER oxycodone PRN for pain ?? ESRD On dialysis T,,Sat - Nephrology consulted to help with dialysis management - Continue Harris Caps, and calcium acetate ?? Essential HTN ANNUAL CAMPAIGN MANAGER regimen includes lisinopril 40 mg and Norvasc 10 mg and Metoprolol 200 mg bid on non dialysis days - Continue daily Lisinopril - Continue Metoprolol and Norvasc on non dialysis days - Hydralazine PRN ?? H/o UE DVT Currently anticoagulated with Coumadin as an outpatient - Holding Coumadin in setting of possible surgery. Will restart once okay with vascular DM, type II Last HgbA1c was 5.6. Currently managed by diet and on no medications as an outpatient. - SSI ?? Anemia of Chronic Disease Baseline Hgb 9-10 and was 8.9 at [facility] # Pain Assessment: Current Pain Score 01/24/2018 Patient currently in pain? yes Pain score (0-10) 1 Pain location Foot Pain descriptors - - Julio Cesar is experiencing pain due to left heel wound. Pain management was discussed and the plan was created in a collaborative fashion. Julio Cesar's response to the current recommendations: compliant - Please see the plan for pain management as documented above DVT Prophylaxis: Pneumatic Compression Devices Code Status: Prior Disposition: Expected discharge 2-3 days once vascular surgery evaluation complete. David Grey, DO Text Page (7am to 6pm) Interval History Patient seen and examined. Continues to have heel pain. No fevers or chills. No chest pain or SOB. -Data reviewed today: I reviewed all new labs and imaging results over the last 24 hours. I personally reviewed no images or EKG's today. Physical Exam Temp: 97.7 ??F (36.5 ??C) Temp src: Oral BP: 140/77 Pulse: 82 Heart Rate: 67 Resp: 18 SpO2: 99 % O2 Device: None (Room air) Vitals: 01/24/18 1013 Weight: 89.8 kg (198 lb) Vital Signs with Ranges Temp: [97.2 ??F (36.2 ??C)-97.7 ??F (36.5 ??C)] 97.7 ??F (36.5 ??C) Pulse: [82] 82 Heart Rate: [65-83] 67 Resp: [16-18] 18 BP: (125-220)/(56-95) 140/77 SpO2: [99 %-100 %] 99 % I/O last 3 completed shifts: In: 238 [P.O.:238] Out: - Constitutional: Awake, alert, cooperative, no apparent distress Respiratory: Clear to auscultation bilaterally, no crackles or wheezing Cardiovascular: Regular rate and rhythm, normal S1 and S2, and no murmur noted GI: Normal bowel sounds, soft, non-distended, non-tender MSK: Left foot is wrapped Medications ??? bupivacaine 1 mL Intradermal Once ??? sodium chloride 0.9% 250 mL Intravenous Once in dialysis ??? sodium chloride 0.9% 300 mL Hemodialysis Machine Once ??? epoetin mauricio (EPOGEN,PROCRIT) inj ESRD 4,000 Units Intravenous Once in dialysis ??? - MEDICATION INSTRUCTIONS - Does not apply Once ??? [START ON 01/25/2018] amLODIPine (NORVASC) tablet 10 mg 10 mg Oral Once per day on Tue ??? atorvastatin 20 mg Oral QPM ??? [START ON 01/25/2018] bisacodyl 10 mg Oral Once per day on Tue ??? lisinopril (PRINIVIL/ZESTRIL) tablet 40 mg 40 mg Oral Daily ??? insulin aspart 1-7 Units Subcutaneous TID AC ??? insulin aspart 1-5 Units Subcutaneous At Bedtime ??? - MEDICATION INSTRUCTIONS for Dialysis Patients - Does not apply See Admin Instructions Data Recent Labs Lab 01/24/18 0655 WBC 3.9* HGB 8.2* MCV 86 PLT 179 INR 4.21* NA 131* POTASSIUM 4.3 CHLORIDE 95 CO2 20 BUN 78* CR 13.60* ANIONGAP 16* JON 8.7 GLC 76 Imaging: No results found for this or any previous visit (from the past 24 hour(s)). Iram Edgar RN - 01/24/2018 11:14 AM CDT Per chart review, pt discharged from [facility] on 12/19/17 with [facility] RN for Wound VAC. Called [facility] at [phone] and Intake confirmed pt is still open to [facility] for RN services. Per [facility] request if patient will be discharging with home care needs, please fax d/c resumption HC RN orders to [facility] at [phone]. Care Transition Initial Assessment - RN Met with: Patient to discuss discharge home with resumption of home care for the Wound VAC. As notedearlier, pt is open to [facility]. Informed pt that [facility] would be seeing pt onJanuary [address] wound VAC on left heel wound and that pt will need to follow-up with his Taping Machine Operator from [facility]. Pt stated that his Aunt would do this. Pt informed about resuming outpt dialysison Tuesday. Called [facility] that pt will discharge home today and will need start of service for 01/27/[address] wound VAC back on left heel wound. [facility] that that they would have a nurse come out to pt's homeon 01/27/18, [facility] requested d/c orders and Md notes be faxed to [phone]. Requested information faxed. [facility] ([facility]) will continue to follow as needed. Dileep Anders MD - 01/24/2018 10:54 AM CDT Assessment and Plan: ESRD: HD T Th S, runs at [facility]. Running today by Hans femoral procol graft, no heparin, 1-2 LUF, 3K and 35 HCO3. He will get EPO on the run. His EDW is 89.0. Interval History: L heel ulcer: for debridement today. DM HT Review of Systems: No sx on dialysis. Medications: ??? bupivacaine 1 mL Intradermal Once ??? [START ON 01/25/2018] amLODIPine (NORVASC) tablet 10 mg 10 mg Oral Once per day on Sun Tue ??? atorvastatin 20 mg Oral QPM ??? [START ON 01/25/2018] bisacodyl 10 mg Oral Once per day on Sun Tue ??? lisinopril (PRINIVIL/ZESTRIL) tablet 40 mg 40 mg Oral Daily ??? insulin aspart 1-7 Units Subcutaneous TID AC ??? insulin aspart 1-5 Units Subcutaneous At Bedtime ??? - MEDICATION INSTRUCTIONS for Dialysis Patients - Does not apply See Admin Instructions Current active medications and ANNUAL CAMPAIGN MANAGER medications reviewed, see medication list for details. Physical Exam: Vitals were reviewed Patient Vitals for the past 24 hrs: BP Temp Temp src Pulse Heart Rate Resp SpO2 Weight 01/24/18 1045 153/71 - - - 66 - - - 01/24/18 1034 170/78 - - - 68 - - - 01/24/18 1030 182/76 97.7 ??F (36.5 ??C) Oral - 67 18 - - 01/24/18 1013 - - - - - - - 89.8 kg (198 lb) 01/24/18 0721 125/62 97.4 ??F (36.3 ??C) Oral 82 - 16 99 % - 01/24/18 0439 130/60 - - - - - - - 01/24/18 0227 149/65 - - - - - - - 01/24/18 0139 183/75 - - - - - - - 01/24/18 0137 179/79 - - - - - 100 % - 01/24/18 0021 146/71 97.2 ??F (36.2 ??C) Oral - 83 16 100 % - 01/23/18 2256 139/78 - - - - - - - 01/23/18 2223 180/72 - - - 81 - - - 01/23/18 2203 196/81 - - - 72 - - - 01/23/18 2152 (!) 220/95 - - - 73 - - - 01/23/182041 - - - - - 16 - - 01/23/18 203 195/82 97.3 ??F (36.3 ??C) Oral - 65 - - - Temp: [97.2 ??F (36.2 ??C)-97.7 ??F (36.5 ??C)] 97.7 ??F (36.5 ??C) Pulse: [82] 82 Heart Rate: [65-83] 66 Resp: [16-18] 18 BP: (125-220)/(60-95) 153/71 SpO2: [99 %-100 %] 99 % Temperatures: Current - Temp: 97.7 ??F (36.5 ??C); Max - Temp Av.4 ??F (36.3 ??C) Min: 97.2 ??F(36.2 ??C) Max: 97.7 ??F (36.5 ??C) Respiration range: Resp Av.5 Min: 16 Max: 18 Pulse range: Pulse Av Min: 82 Max: 82 Blood pressure range: Systolic (24hrs), Av , Min:125 , Max:220 ; Diastolic (24hrs), Av, Min:60, Max:95 Pulse oximetry range: SpO2 Av.7 % Min: 99 % Max: 100 % I/O last 3 completed shifts: In: 238 [P.O.:238] Out: - Intake/Output Summary (Last 24 hours) at 01/24/18 1054 Last data filed at 01/24/18 0900 Gross per 24 hour Intake 858 ml Output 0 ml Net 858 ml Alert Lungs with clear BS Cor RRR nl S1 S2 no M LLE graft with needles in place LE no edema Wt Readings from Last 4 Encounters: 01/24/18 89.8 kg (198 lb) 12/19/17 90.5 kg (199 lb 8.3 oz) 12/07/17 90 kg (198 lb 8 oz) 04/25/17 90.7 kg (200 lb) Data: Lab Results Component Value Date NA 131 01/24/2018 NA 125 12/17/2017 NA 129 12/16/2017 Lab Results Component Value Date CHLORIDE 95 01/24/2018 CHLORIDE 84 12/17/2017 CHLORIDE 88 12/16/2017 Lab Results Component Value Date BUN 78 01/24/2018 BUN 114 12/17/2017 BUN 90 12/16/2017 Lab Results Component Value Date POTASSIUM 4.3 01/24/2018 POTASSIUM 5.1 12/17/2017 POTASSIUM 4.9 12/16/2017 Lab Results Component Value Date CO2 20 01/24/2018 CO2 21 12/17/2017 CO2 25 12/16/2017 Lab Results Component Value Date CR 13.60 01/24/2018 CR 16.10 12/17/2017 CR 15.00 12/16/2017 Recent Labs Lab Test 01/24/18 0655 12/18/17 1025 12/18/17 0701 WBC 3.9* 5.5 5.1 HGB 8.2* 8.3* 8.2* HCT 26.3* 26.7* 26.2* MCV 86 87 87 PLT 179 171 168 Recent Labs Lab Test 12/16/15 1501 AST 17 ALT 16 ALKPHOS 139 BILITOTAL 0.6 Recent Labs Lab Test 06/17/14 1800 MAG 2.1 Recent Labs Lab Test 08/09/15 1250 06/17/14 0731 06/15/14 0734 PHOS 2.3* 2.6 2.4* Recent Labs Lab Test 01/24/18 0655 12/17/17 0830 12/16/17 0925 JON 8.7 9.0 9.3 Lab Results Component Value Date JON 8.7 01/24/2018 Lab Results Component Value Date WBC 3.9 (L) 01/24/2018 HGB 8.2 (L) 01/24/2018 HCT 26.3 (L) 01/24/2018 MCV 86 01/24/2018 PLT 179 01/24/2018 Lab Results Component Value Date NA 131 (L) 01/24/2018 POTASSIUM 4.3 01/24/2018 CHLORIDE 95 01/24/2018 CO2 20 01/24/2018 GLC 76 01/24/2018 Lab Results Component Value Date BUN 78 (H) 01/24/2018 CR 13.60 (H) 01/24/2018 Lab Results Component Value Date MAG 2.1 06/17/2014 Lab Results Component Value Date PHOS 2.3 (L) 08/09/2015 Creatinine Date Value Ref Range Status 01/24/2018 13.60 (H) 0.66 - 1.25 mg/dL Final 12/17/2017 16.10 (H) 0.66 - 1.25 mg/dL Final 12/16/2017 15.00 (H) 0.66 - 1.25 mg/dL Final 12/07/2017 10.20 (H) 0.66 - 1.25 mg/dL Final 03/06/2016 11.00 (H) 0.66 - 1.25 mg/dL Final 03/05/2016 8.67 (H) 0.66 - 1.25 mg/dL Final Attestation: I have reviewed today's vital signs, notes, medications, labs and imaging. Seen on dialysis. Dileep Anders MD documented in this encounter H&P Notes Janine Uriarte PA-C - 01/23/2018 8:19 PM CDT [facility] History and Physical Hospitalist Service 01/23/2018 Janine Uriarte PA-C pager [phone] Julio Cesar Sandhu Date of : 1965 Age: [age] year old Date of Admission: 01/23/18 Primary Care Physician: Preet Huff [phone] CHIEF COMPLAINT: Left Foot Ulcer HISTORY OBTAINED: Chart Review HPI: Julio Cesar Sandhu is a 52 yo male with a PMH of ESRD, DM-2, DVT on warfarin and HTN who is directly admitted from [facility] for evaluation of left heel ulcer. Patient has history of ESRD with multiple issues with access. He has no UE axis and had thrombosed accesses in right groin. He currently has access in his left femoral artery, but it has required angioplasty in the past. In Nov he developed a ulcer over his left heel. An angiogram was preformed which showed steal syndrome at the fistula. He underwent thigh graft banding, left heel debridement and wound vac placement 12/16/17. He wasdischarged with a wound vac in place and home RN. His wound was being followed by a local podiatristin [place]. Today the wound nurse was concerned about a secondary infection. Julio Cesar was brought tot ER. Work-up with no leukocytosis, normal CRP and ESR 66. Xrays reportedly with no sign of osteomyelitis. Given need for potential debridement as well as dialysis transfer to [facility] was requested. Presently, patient is evaluated in his hospital room. Offers no complaints. History is limited. Denies recent fevers or worsening pain. PAST MEDICAL HISTORY Past Medical History: Diagnosis Date ??? A-V fistula (H) left forearm ??? Anemia ??? Anemia ??? Blind ??? Chronic in-center hemodialysis status (H) ??? Cognitive deficits ??? Diabetes mellitus (H) ??? DVT (deep venous thrombosis) (H) ??? ESRD (end stage renal disease) (H) dialysis ??? History of staph septicemia 12/20/2015 ??? Hyperkalemia ??? Hyperlipemia ??? Hyperlipidaemia ??? Hypertension ??? Hypertension ??? Kidney disease ??? Kidney disease ??? Orthostasis ??? Retinopathy ??? Sleep apnea CPAP ??? Syncope PAST SURGICAL HISTORY Past Surgical History: Procedure Laterality Date ??? ABDOMEN SURGERY ??? AV FISTULA OR GRAFT ARTERIAL ??? BYPASS GRAFT FEMOROPOPLITEAL 08/09/2012 Procedure: BYPASS GRAFT FEMOROPOPLITEAL; REDO RIGHT PROFUNDUS FEMORAL TO COMMON FEMORAL ACCESS GRAFT WITH PTFE (POLY TETRA FLOROETHELINE GRAFT), REMOVAL COMMON FEMORAL VEIN STENT, GRAFT EMBOLECTOMY; Surgeon: Rober Saravia MD; Location: [facility] OR ??? C PLACE CATH AV DIALYSIS SHUNT left thigh 05/23 ??? CREATE FISTULA ARTERIOVENOUS LOWER EXTREMITY 06/20/2013 Procedure: CREATE FISTULA ARTERIOVENOUS LOWER EXTREMITY; LEFT GROIN PTFE DIALYSIS ACCESS; Surgeon: Rober Saravia MD; Location: [facility] OR ??? CREATE FISTULA ARTERIOVENOUS LOWER EXTREMITY Left 07/02/2015 Procedure: CREATE FISTULA ARTERIOVENOUS LOWER EXTREMITY; Surgeon: Rober Saravia MD; Location: [facility] OR ??? CREATE FISTULA ARTERIOVENOUS LOWER EXTREMITY Left 03/05/2016 Procedure: CREATE FISTULA ARTERIOVENOUS LOWER EXTREMITY; Surgeon: Rober Saravia MD; Location: [facility] OR ??? CREATE FISTULA ARTERIOVENOUS UPPER EXTREMITY 10/20/2011 Procedure:CREATE FISTULA ARTERIOVENOUS UPPER EXTREMITY; VEIN PATCH RIGHT ARM ARTERIOVENOUS FISTULA WITH BOVINE PATCH; Surgeon:ROBER SARAVIA; Location:[facility] OR ??? CREATE GRAFT LOOP ARTERIOVENOUS LOWER EXTREMITY 05/03/2012 Procedure: CREATE GRAFT LOOP ARTERIOVENOUS LOWER EXTREMITY; RIGHT GROIN LOOP GRAFT WITH CADAVER FEMORAL ARTERY; Surgeon: Rober Saravia MD; Location: [facility] OR ??? CREATE GRAFT LOOP ARTERIOVENOUS LOWER EXTREMITY Left 08/13/2015 Procedure: CREATE GRAFT ARTERIOVENOUS LOWER EXTREMITY; Surgeon: Rober Saravia MD; Location: [facility] OR ??? GENITOURINARY SURGERY TURP,CIRCUMCISION ??? INSERT CATHETER VENOUS TRANSLUMBAR 08/08/2012 Procedure: INSERT CATHETER VENOUS TRANSLUMBAR; LUMBAR TUNNEL CATH PLACEMENT.; Surgeon: Michele Fuentes MD; Location: [facility] OR ??? IRRIGATION AND DEBRIDEMENT FOOT, COMBINED Left 12/16/2017 Procedure: COMBINED IRRIGATION AND DEBRIDEMENT FOOT;; Surgeon: Rober Saravia MD; Location: [facility] OR ??? IRRIGATION AND DEBRIDEMENT LOWER EXTREMITY, COMBINED Left 06/04/2014 Procedure: COMBINED IRRIGATION AND DEBRIDEMENT LOWER EXTREMITY; Surgeon: Rober Saravia MD; Location: [facility] ??? IRRIGATION AND DEBRIDEMENT LOWER EXTREMITY, COMBINED Left 12/19/2015 Procedure: COMBINED IRRIGATION AND DEBRIDEMENT LOWER EXTREMITY; Surgeon: Honorio Aceves MD; Location: [facility] OR ??? REVISION FISTULA ARTERIOVENOUS LOWER EXTREMITY 05/08/2014 Procedure: REVISION FISTULA ARTERIOVENOUS LOWER EXTREMITY; Surgeon: Rober Saravia MD; Location: [facility] ??? REVISION FISTULA ARTERIOVENOUS LOWER EXTREMITY Left 06/04/2014 Procedure: REVISION FISTULA ARTERIOVENOUS LOWER EXTREMITY; Surgeon: Rober Saravia MD; Location: [facility] ??? REVISION FISTULA ARTERIOVENOUS LOWER EXTREMITY Left 11/19/2015 Procedure: REVISION FISTULA ARTERIOVENOUS LOWER EXTREMITY; Surgeon: Rober Saravia MD; Location: [facility] OR ??? REVISION FISTULA ARTERIOVENOUS LOWER EXTREMITY Left 12/16/2017 Procedure: REVISION FISTULA ARTERIOVENOUS LOWER EXTREMITY; LEFT THIGH ABF FISTOGRAM, ANGIOPLASTY OFOUTFLOW VENOUS STENOSIS, BANDING LEFT ABF, IRRIGATION AND DEBRIDEMENT LEFT FOOT ULCER (C-ARM); Surgeon: Rober Saravia MD; Location: [facility] OR ??? THROMBECTOMY LOWER EXTREMITY 08/09/2012 Procedure: THROMBECTOMY LOWER EXTREMITY;; Surgeon: Rober Saravia MD; Location: [facility] OR HOME MEDICATIONS Prior to Admission medications Medication Sig Last Dose Taking? Auth Provider oxyCODONE IR (ROXICODONE) 5 MG tablet Take 1 tablet (5 mg) by mouth daily maximum 6 tablet(s) per day Rober Saravia MD oxyCODONE IR (ROXICODONE) 5 MG tablet Take 1-2 tablets (5-10 mg) by mouth every 4 hours as needed for other (pain control or improvement in physical function. Hold dose for analgesic side effects.) Estrella Guillen MD warfarin (COUMADIN) 4 MG tablet Take 1 tablet (4 mg) by mouth daily Estrella Guillen MD atorvastatin (LIPITOR) 20 MG tablet Take 1 tablet (20 mg) by mouth every evening Estrella Guillen MD senna-docusate (SENOKOT-S;PERICOLACE) 8.6-50 MG per tablet Take 1 tablet by mouth 2 times daily Estrella Guillen MD BISACODYL PO Take 10 mg by mouth four times a week (Takes 2 x 5mg tablet = 10mg dose) Reported, Patient ATORVASTATIN CALCIUM PO Take 20 mg by mouth every evening Reported, Patient B Atrqbgv-R-Sqrme Acid (HARRIS CAPS PO) Take 1 mg by mouth every evening Reported, Patient AMLODIPINE BESYLATE PO Take 10 mg by mouth four times a week On Non dialysis days which is MWFSun Unknown, Entered By History METOPROLOL TARTRATE PO Take 200 mg by mouth 2 times daily Take on MWFSun, on Non-dialysis days Unknown, Entered By History Calcium Acetate, Phos Binder, (CALCIUM ACETATE PO) Take 1,334 mg by mouth 3 times daily (with meals)Takes with meals (2 x 667mg tablet) Reported, Patient LISINOPRIL PO Take 40 mg by mouth daily (Takes 2 x 20mg tablet = 40mg ) Reported, Patient Cholecalciferol (VITAMIN D3 PO) Take 2,000 Units by mouth every evening Unknown, Entered By History ALLERGIES Allergies Allergen Reactions ??? Aspirin [Dihydroxyaluminum Aminoacetate] GI Disturbance GI bleeding SOCIAL HISTORY reports that he has never smoked. He has never used smokeless tobacco. He reports that he does not drink alcohol or use illicit drugs. FAMILY HISTORY Family history is unknown by patient. REVIEW OF SYSTEMS A 10 point ROS was negative other than the symptoms noted above in the HPI. PHYSICAL EXAM There were no vitals taken for this visit. Gen: laying in bed, alert HEENT: normocephalic; oropharynx clear; thyroid not enlarged Card: RRR, S1, S2, no murmurs Resp: lungs clear to auscultation bilaterally GI: abdomen soft, not-tender, non-distended, no organomegaly, +BS MSK: normal muscle tone, no LE edema Neuro: CX II-XII grossly in tact; ROM in all four extremities grossly in tact Psych: alert and oriented x3; flatl affect Heme/Lymph: no supraclavicular or cervical adenopathy Skin: large left heel ulcer,foul order, yip discharge, no localized erythema or warmth. DATA Laboratory Results: Recent Labs Lab Test 12/19/17 0718 12/18/17 1025 12/18/17 0701 WBC -- 5.5 5.1 HGB -- 8.3* 8.2* MCV -- 87 87 PLT -- 171 168 INR 2.13* -- 1.57* Recent Labs Lab Test 12/17/17 0830 12/16/17 0925 NA 125* 129* POTASSIUM 5.1 4.9 CHLORIDE 84* 88* CO2 21 25 BUN 114* 90* CR 16.10* 15.00* ANIONGAP 20* 16* JON 9.0 9.3 GLC 100* 87 No lab results found. Invalid input(s): TROP, TROPONINIES Imaging Results: Personally reviewed today as per Epic. No results found for this or any previous visit (from the past 24 hour(s)). ASSESSMENT AND PLAN: Julio Cesar Sandhu is a 52 year old male with a PMH of ESRD, HTN, left LE steal syndrome and known left heel wound who is admitted from OSH with concern for infection of left heelwound. H/o Left LE Steal Syndrome from ProCol dialysis graft s/p banding 12/16/17 Left Heel Wound s/p debridement and wound vac placement 12/16/17: Had debridement and wound vac placement by Dr. Saravia. Currently managed by home RN and local metal cut off saw operator (last eval 01/17). Home RN was concerned for infection. Work-up at OSH showed no leukocytosis. -- Given no signs of current infection will hold antibiotics. Xrays reportedly normal per OSH. AUTOMATION TEST DEVELOPER attempting to get images scanned to view. -- Vascular surgery consult. Will defer to them if podiatry needs to be involved -- ANNUAL CAMPAIGN MANAGER oxycodone for pain ESRD: On dialysis TJeri Sat -- Nephrology consult -- Continue Butler Caps, and calcium acetate Essential HTN: ANNUAL CAMPAIGN MANAGER regimen includes lisinopril 40 mg/d and Norvasc 10 mg and Metoprolol 200mg bid onnon dialysis days -- Continue daily Lisinopril -- Continue Metoprolol and Norvasc on non dialysis days -- Hydralazine prn D/o UE DVT -- INR 3.5 -- Hold warfarin. Daily INR Diet Controled DM, A1C 5.6 -- Not on meds ANNUAL CAMPAIGN MANAGER -- SSI Anemia of Chronic Disease: Baseline Hgb 9-10 -- Hgb 8.9 at OSH DVT Prophylaxis: Hold warfarin for now. Daily INR. Resume pending plan per vascular surgery Code Status: Full Dispo: > 2 days. Admit inpatient Associated attestation - Den Chandra MD - 01/23/2018 9:19 PM CDT Physician Attestation I, Den Chandra, have reviewed and discussed with the advanced practice provider their history, physical and plan for Julio Cesar Sandhu. I did not participate in a shared visit by interviewing or examining the patient and this should be billed as an advanced practice provider only visit. Den Harris Corazon Date of Service (when I saw the patient): I did not personally see this patient today. documented in this encounter Consult Notes Rober Saravia MD - 01/24/2018 9:41 AM CDT VASCULAR SURGERY Julio Cesar Sandhu was admitted last evening due to his left heel ulcer. He is very well-known to us on chronic hemodialysis via a left distal SFA to proximal superficial femoral artery ProCol dialysis access graft. He developed a left posterior heel ulcer that it failed to heal. We decreased the flow within the fistula by banding this on 12/16/2017 and debrided his heel ulcer which did not involve the bone. He was placed in a negative pressure dressing. He had better blood flow via his only outflow artery being the anterior tibial and dorsalis pedis artery with occluded posterior tibial artery. Patient been followed by his local metal cut off saw operator in [facility] where he lives. He was concerned about infection. It is unclear whether the VACis still being used. Admission white blood count was normal with a normal CRP but elevated ESR to 66. No x-ray evidence of osteomyelitis to the heel. Exam: Comfortable. Baseline affect (mental retardation). VSS Afebrile Chest = clear Excellent palpable pulse within the left medial thigh ProCol graft with well- healed incisions. Foot is warm with no edema. Heel ulcer is clean. This measures 4 x 4 cm with a depth of 0.5 cm. The 1.5 cm circumferential openedge of the wound has dried out with no undermining or purulence. The center 1 cm has a small amountof slough and slightly purulent drainage. No exposed bone. Laboratory: WBC= 3.9 Hgb= 8.2 INR= 4.2 (Coumadin) Impression: Left heel ulcer. Adequate blood supply to foot though still limited due to the posteriortibial artery occlusion. We will plan bedside debridement under a Marcaine field block later today after his dialysis. Rober Saravia MD documented in this encounter Miscellaneous Notes Plan of Care - Dewayne Cornejo RN - 01/26/2018 5:21 AM CDT Problem: Patient Care Overview Goal: Plan of Care/Patient Progress Review Outcome: No Change Pt is A&O X3 ( not to time) Pt had pain in left heel and was given tylenol. The L heel bandage did have blood showing and it was reinforced.Pt is developmentally delayed but is able to answer question appropriately.?? Pt will sit at edge of bed for comfort. Pt will have dialysis today.t is tolerating diet well but would like a larger amount of food. Continue to monitor Plan of Care - Ivana Mendez - 01/25/2018 10:03 PM CDT Problem: Patient Care Overview Goal: Plan of Care/Patient Progress Review Outcome: No Change VSS. Disoriented to time. Dressing to LLE with bleeding; reinforced; has slowed since. Tylenol givenx1 to prevent pain. Up to chair for supper. Up with assist of 1. Plan for dialysis tomorrow. Continue to monitor. Op Note - Rober Saravia MD - 01/25/2018 2:42 PM CDT Procedure Date: 01/25/2018 LAPEL PADDER: Megan [place]avera [place] [place] PREOPERATIVE DIAGNOSIS: Nonhealing left posterior heel ulceration. POSTOPERATIVE DIAGNOSIS: Nonhealing left posterior heel ulceration. PROCEDURE: Full thickness/subcutaneous excisional debridement, left posterior heel ulcer. SURGEON: Rober Saravia MD ANESTHESIA: 0.5% Marcaine field block. INDICATIONS: 52-year-old patient on dialysis has developed an ulceration on the left posterior heel.We improved the blood supply to his foot by banding his left thigh ProCol dialysis access graft. Thepatient had been treated with a wound VAC as an outpatient. They noticed worsening of the ulceration. He was admitted to the hospital. There was no evidence of osteomyelitis. Wound has necrotic edges, but no obvious cellulitis. We felt that bedside excisional debridement was indicated. PROCEDURE: Informed consent was obtained from the patient. He was then placed prone. The heel area was prepped with ChloraPrep. 10 mL of 0.5% Marcaine were injected in a field block fashion circumferentially around the ulcer. Using a #15 and #10 blade scalpel, we then proceeded to perform a full thickn ess/subcutaneous excisional debridement on the heel ulcer until we had bleeding edges and viable tissue circumferentially in the base. Following debridement, the ulcer measured 5.5 x 5.5 x 0.5 cm. There was no exposed bone at the base of the wound. There was no granulation tissue noted either. A gauzepressure dressing was applied to stop his bleeding. (The patient is on Coumadin anticoagulation chronically.) Kerlix rolls were applied. The patient tolerated the procedure well. Estimated blood loss less than 10 mL. COMPLICATIONS: None. ROBER SARAVIA MD MT: NTS Name: JULIO CESAR SANDHU MRN: [id number] Account: [id number] : 1965 Procedure Date: 01/25/2018 Document: [id number] cc: MEGAN Saravia MD Plan of Care - Esme Espinosa RN - 01/25/2018 1:53 PM CDT Problem: Infection, Risk/Actual (Adult) Goal: Identify Related Risk Factors and Signs and Symptoms Related risk factors and signs and symptoms are identified upon initiation of Human Response Clinical Practice Guideline (CPG). Outcome: No Change Pt had debridement at bedside this am by Dr. Saravia. Dressing reinforced this am and changed this afternoon due to large amount of bleeding. Continues to bleed through new dressing also. Pt up in chair a couple times today. Eating/drinking well. Fistula in left thigh. Blood sugars did not require coverage. Tylenol and oxycodone given for pain in heel. Plan of Care - Mackenzie Olson RN - 01/25/2018 5:46 AM CDT Problem: Patient Care Overview Goal: Plan of Care/Patient Progress Review Outcome: No Change Pt A&Ox4, VSS, denies pain, foot wound wrapped in kerlix and covered with a sock, scant dried drainage on dressing. Slept majority of shift. Awaiting visit from Dr. Saravia pertaining to foot wound. Discharge tbd. Plan of Care - Dannielle Nur RN - 01/24/2018 8:16 PM CDT Problem: Patient Care Overview Goal: Plan of Care/Patient Progress Review Outcome: No Change 3p-11:30pm shift report Had dialysis this am returning back to station 88 at approx 1600. Prev shift reported dialysis removing 1.[address] Saravia was originally planning on doing a bedside debridement later today after pt's dilaysis but MD has not yet appeared.Has left thigh fistula with good trill/bruit and intact drsg. Afebrile. Currently NOT on any antibiotics. Left heel drsg D/I -this area is tender to touch -pt states pain as mild - being controlled with prn Tylenol. Appetite good Monitoring blood sugars with meals. Up with SBA. Pt is developmentally/cognitively delayed, alert to self and place but not time. Disposition: lives with aunt in [place] and uses [employer] - following Continue to monitor Plan of Care - Esme Espinosa RN - 01/24/2018 1:22 PM CDT Problem: Infection, Risk/Actual (Adult) Goal: Identify Related Risk Factors and Signs and Symptoms Related risk factors and signs and symptoms are identified upon initiation of Human Response Clinical Practice Guideline (CPG). Outcome: No Change Pt with left heel wound. Dr. Saravia to do bedside debridement later today. Pt currently in dialysis, has left thigh fistula. Ate good breakfast. Monitoring blood sugars with meals. Up with SBA. Pt is developmentally delayed, alert to self and place but not time. Plan of Care - Nola Madden RN - 01/24/2018 5:56 AM CDT Problem: Patient Care Overview Goal: Plan of Care/Patient Progress Review Outcome: No Change Pt is A&O to self and place. VSS except BP 183/75. Hydralazine given, recheck 149/65 and second recheck 130/60. Tylenol given x1 for 1/10 L foot pain. Up with assist of 1 to BR. Per pt report, had 4 stools overnight but pt flushed before it was verified, hat placed in toilet. Pushed pt around unitin wheelchair x1. R PIV SL, flushes well. NPO since midnight. Nephrology and vascular surgery consult (holding Warfarin until this is done) scheduled for today. Pt will also get dialysis today. Will continue to monitor. Plan of Care - Isabel Reddy RN - 01/23/2018 11:00 PM CDT Problem: Patient Care Overview Goal: Plan of Care/Patient Progress Review Outcome: No Change Direct admit from [facility]. A and O X , disoriented to time and location . Pt legally blind per [facility] Rn Report, and developmentally delayed, however pt reporting he sees okay.Continue to monitor. VSS, except BP which is very elevate: BP max of 220/95. Md notified.Prn hydralaz ine given x 1, one time scheduled dose hydralazine x 1. One time dose metoprolol x 1: effective, dropped to 139/78. Pain 2/10, prn tylenol given x 1 per pt request: effective. Renal diet: NPO starting midnight. R AC SL. Would cultures ( heel) pending. Pt had large, formed BM. Renal diet: good appetite. BG 109. Plan for discharge: pending. Provider Notification - Isabel Reddy RN - 01/23/2018 10:05 PM CDT MD Notification: Person notified: After hr Hospitalist Person Name: Janine Uriarte, Date/Time: 01/23/18, At 2205 Interaction: phone conversation Purpose of Notification: BP of 220/95, prn hydralazine given, scheduled PB medication not approved by pharmacy. md was notified. Per, PA, One additional one time dose of hydralazine prescribed. Orders Received: Per PA, pt's baseline BP runs high, and PA not concerned. One additional one time dose of hydralazine prescribed. Comments: Pharmacy-Admission Medication History - Shemar Cheatham [facility] - 01/23/2018 9:44 PM CDT Admission medication history interview status for the 01/23/2018 admission is complete. See [facility] admission navigator for prior to admission medications Medication history source reliability:Good, over the phone with kitchen assistant Thelma Actions taken by pharmacist (provider contacted, etc):removed Senna S, Butler Caps. Changed Metoprololto 100mg. Added lactulose prn Additional medication history information not noted on ANNUAL CAMPAIGN MANAGER med list :None Medication reconciliation/reorder completed by provider prior to medication history? Yes Time spent in this activity: 30 minutes Prior to Admission medications Medication Sig Last Dose Taking? Auth Provider lactulose (CHRONULAC) 10 GM/15ML solution Take 15-60 mLs by mouth daily as needed for constipation 01/23/2018 at Unknown time Yes Unknown, Entered By History oxyCODONE IR (ROXICODONE) 5 MG tablet Take 1 tablet (5 mg) by mouth daily maximum 6 tablet(s) per day 01/23/2018 at Unknown time Yes Rober Saravia MD oxyCODONE IR (ROXICODONE) 5 MG tablet Take 1-2 tablets (5-10 mg) by mouth every 4 hours as needed for other (pain control or improvement in physical function. Hold dose for analgesic side effects.) Estrella Alves MD warfarin (COUMADIN) 4 MG tablet Take 1 tablet (4 mg) by mouth daily 01/23/2018 at Unknown time Yes Estrella Guillen MD atorvastatin (LIPITOR) 20 MG tablet Take 1 tablet (20 mg) by mouth every evening 01/23/2018 at Unknown time Yes Estrella Guillen MD BISACODYL PO Take 10 mg by mouth four times a week (Takes 2 x 5mg tablet = 10mg dose) Tuesday, Tuesday, Tuesday, and Tuesday Past Week at Unknown time Yes Reported, Patient AMLODIPINE BESYLATE PO Take 10 mg by mouth four times a week On Non dialysis days which is MWFSun 01/23/2018 at Unknown time Yes Unknown, Entered By History METOPROLOL TARTRATE PO Take 100 mg by mouth 2 times daily Take on MWFSun, on Non-dialysis days 01/23/2018 at x2 Yes Unknown, Entered By History Calcium Acetate, Phos Binder, (CALCIUM ACETATE PO) Take 1,334 mg by mouth 3 times daily (with meals)Takes with meals (2 x 667mg tablet) 01/23/2018 at Unknown time Yes Reported, Patient LISINOPRIL PO Take 40 mg by mouth daily (Takes 2 x 20mg tablet = 40mg ) 01/23/2018 at Unknown time Yes Reported, Patient Cholecalciferol (VITAMIN D3 PO) Take 2,000 Units by mouth every evening 01/23/2018 at Unknown time Yes Unknown, Entered By History Provider Notification - Isabel Reddy RN - 01/23/2018 9:01 PM CDT Notification: Person notified: admitting PA Person Name: Janine Uriarte Date/Time: 01/23/18 at 2050 Interaction: face to face conversation Purpose of Notification: Incrase BP of 195/82. PRN not available Orders Received: Hydralazine prescribed. Comments: awaiting for pharmacy to verified and approve medications before able to give scheduled BPmedications, as pt was just admitted to the floor documented in this encounter Plan of Treatment Scheduled Referrals Name Type Priority Associated Diagnoses [facility] Referral Routine End stage renal disease Ordered: 01/26/2018 referral (H) documented as of this encounter Procedures Procedure Name Priority Date/Time Associated Comments Diagnosis GLUCOSE BY METER Routine 01/26/2018 2:06 PM End stage renal Re sults for this CDT disease (H) procedure are i n the results section. GLUCOSE BY METER Routine 01/26/2018 7:52 AM Resul ts for this CDT procedure are i n the results section. GLUCOSE BY METER Routine 01/26/2018 1:42 AM Resul ts for this CDT procedure are i n the results section. GLUCOSE BY METER Routine 01/25/2018 10:08 Results for this PM CDT procedure are i n the results section. GLUCOSE BY METER Routine 01/25/2018 5:35 PM Resul ts for this CDT procedure are i n the results section. GLUCOSE BY METER Routine 01/25/2018 12:20 Results for this PM CDT procedure are i n the results section. GLUCOSE BY METER Routine 01/25/2018 7:29 AM Resul ts for this CDT procedure are i n the results section. GLUCOSE BY METER Routine 01/25/2018 1:50 AM Resul ts for this CDT procedure are i n the results section. GLUCOSE BY METER Routine 01/24/2018 9:22 PM Resul ts for this CDT procedure are i n the results section. GLUCOSE BY METER Routine 01/24/2018 4:33 PM Resul ts for this CDT procedure are i n the results section. DIALYSATE BATH Routine 01/24/2018 11:05 POTASSIUM/CALCIUM/BIC AM CDT ARBONATE RH/SH - ADULT IP TERMINATION OF Routine 01/24/2018 11:05 CRRT TREATMENT AM CDT HEMODIALYSIS DIALYZER Routine 01/24/2018 11:05 ([facility]) AM CDT HEMODIALYSIS SINGLE Routine 01/24/2018 11:05 TREATMENT SETUP AM CDT ([facility]) GLUCOSE BY METER Routine 01/24/2018 8:04 AM Resul ts for this CDT procedure are i n the results section. INR Routine 01/24/2018 6:55 AM Results f or this CDT procedure are i n the results section. BASIC METABOLIC PANEL Routine 01/24/2018 6:55 AM Results for this CDT procedure are i n the results section. CBC WITH PLATELETS Routine 01/24/2018 6:55 AM Res ults for this CDT procedure are i n the results section. GLUCOSE BY METER Routine 01/24/2018 1:35 AM Resul ts for this CDT procedure are i n the results section. GLUCOSE BY METER Routine 01/23/2018 10:46 Results for this PM CDT procedure are i n the results section. documented in this encounter Results (ABNORMAL) Glucose by meter (01/26/2018 2:06 PM CDT) P athologist Signature Glucose 358 (H) 70 - 99 01/26/2018 POINT OF CARE mg/dL 3:27 PM CDT TEST, GLUCOSE Specimen Anatomical Collection Method Collection Time Receive d Time (Source) Location / / Volume Laterality 01/26/2018 2:06 PM 8 3:27 CDT PM CDT Nay DEAN - DAVID POCT Performing Organization Address [facility]/ZIP Code Phon e Number FV POINT OF CARE TEST, GLUCOSE POINT OF CARE TEST, GLUCOSE Glucose by meter (01/26/2018 7:52 AM CDT) P athologist Signature Glucose 77 70 - 99 01/26/2018 POINT OF CARE mg/dL 8:06 AM CDT TEST, GLUCOSE Specimen Anatomical Collection Method Collection Time Receive d Time (Source) Location / / Volume Laterality 01/26/2018 7:52 AM 8 8:06 CDT AM CDT Nay DEAN - DAVID POCT Performing Organization Address City/[facility]/ZIP Code Phon e Number FV POINT OF CARE TEST, GLUCOSE POINT OF CARE TEST, GLUCOSE (ABNORMAL) Glucose by meter (01/26/2018 1:42 AM CDT) P athologist Signature Glucose 101 (H) 70 - 99 01/26/2018 POINT OF CARE mg/dL 2:04 AM CDT TEST, GLUCOSE Comment: Dr/RN Notified Specimen Anatomical Collection Method Collection Time Receive d Time (Source) Location / / Volume Laterality 01/26/2018 1:42 AM 8 2:04 CDT AM CDT Nay DEAN - DAVID POCT Performing Organization Address City/[facility] Code Phon e Number FV POINT OF CARE TEST, GLUCOSE POINT OF CARE TEST, GLUCOSE Glucose by meter (01/25/2018 10:08 PM CDT) P athologist Signature Glucose 99 70 - 99 01/25/2018 POINT OF CARE mg/dL 10:21 PM CDT TEST, GLUCOSE Specimen Anatomical Collection Method Collection Time Receive d Time (Source) Location / / Volume Laterality 01/25/2018 10:08 01/25/2018 PM CDT 10:21 PM CDT Nay Melendrez MD LAB - [place] POCT Performing Organization Address City/State/ZIP Code Phon e Number FV POINT OF CARE TEST, GLUCOSE POINT OF CARE TEST, GLUCOSE (ABNORMAL) Glucose by meter (01/25/2018 5:35 PM CDT) athologist Signature Glucose 117 (H) 70 - 99 01/25/2018 POINT OF CARE mg/dL 5:47 PM CDT TEST, GLUCOSE Specimen Anatomical Collection Method Collection Time Receive d Time (Source) Location / / Volume Laterality 01/25/2018 5:35 PM 8 5:47 CDT PM CDT Nay DEAN - [place] POCT Performing Organization Address City/State/ZIP Code Phon e Number FV POINT OF CARE TEST, GLUCOSE POINT OF CARE TEST, GLUCOSE (ABNORMAL) Glucose by meter (01/25/2018 12:20 PM CDT) athologist Signature Glucose 106 (H) 70 - 99 01/25/2018 POINT OF CARE mg/dL 12:32 PM CDT TEST, GLUCOSE Comment: /LINDA Notified Specimen Anatomical Collection Method Collection Time Receive d Time (Source) Location / / Volume Laterality 01/25/2018 12:20 01/25/2018 PM CDT 12:32 PM CDT Nay Melendrez MD LAB - [place] POCT Performing Organization Address City/State/ZIP Code Phon e Number FV POINT OF CARE TEST, GLUCOSE POINT OF CARE TEST, GLUCOSE Glucose by meter (01/25/2018 7:29 AM CDT) athologist Signature Glucose 89 70 - 99 01/25/2018 POINT OF CARE mg/dL 7:42 AM CDT TEST, GLUCOSE Comment: /RN Notified Specimen Anatomical Collection Method Collection Time Receive d Time (Source) Location / / Volume Laterality 01/25/2018 7:29 AM 8 7:42 CDT AM CDT Nay Melendrez MD LAB - DAVID POCT Performing Organization Address City/State/ZIP Code Phon e Number FV POINT OF CARE TEST, GLUCOSE POINT OF CARE TEST, GLUCOSE (ABNORMAL) Glucose by meter (01/25/2018 1:50 AM CDT) P athologist Signature Glucose 118 (H) 70 - 99 01/25/2018 POINT OF CARE mg/dL 2:12 AM CDT TEST, GLUCOSE Specimen Anatomical Collection Method Collection Time Receive d Time (Source) Location / / Volume Laterality 01/25/2018 1:50 AM 8 2:12 CDT AM CDT Nay Melendrez MD LAB - DAVID POCT Performing Organization Address [facility] Code Phon e Number FV POINT OF CARE TEST, GLUCOSE POINT OF CARE TEST, GLUCOSE (ABNORMAL) Glucose by meter (01/24/2018 9:22 PM CDT) P athologist Signature Glucose 152 (H) 70 - 99 01/24/2018 POINT OF CARE mg/dL 9:39 PM CDT TEST, GLUCOSE Specimen Anatomical Collection Method Collection Time Receive d Time (Source) Location / / Volume Laterality 01/24/2018 9:22 PM 8 9:39 CDT PM CDT Nay DEAN - DAVID POCT Performing Organization Address City/[facility] Code Phon e Number FV POINT OF CARE TEST, GLUCOSE POINT OF CARE TEST, GLUCOSE Glucose by meter (01/24/2018 4:33 PM CDT) P athologist Signature Glucose 85 70 - 99 01/24/2018 POINT OF CARE mg/dL 4:46 PM CDT TEST, GLUCOSE Specimen Anatomical Collection Method Collection Time Receive d Time (Source) Location / / Volume Laterality 01/24/2018 4:33 PM 8 4:46 CDT PM CDT Nay Melendrez MD LAB - [place] POCT Performing Organization Address City/[facility]/ZIP Code Phon e Number FV POINT OF CARE TEST, GLUCOSE POINT OF CARE TEST, GLUCOSE Glucose by meter (01/24/2018 8:04 AM CDT) athologist Signature Glucose 88 70 - 99 01/24/2018 POINT OF CARE mg/dL 8:21 AM CDT TEST, GLUCOSE Specimen Anatomical Collection Method Collection Time Receive d Time (Source) Location / / Volume Laterality 01/24/2018 8:04 AM 8 8:21 CDT AM CDT Nay Melendrez MD LAB - [place] POCT Performing Organization Address City/State/ZIP Code Phon e Number FV POINT OF CARE TEST, GLUCOSE POINT OF CARE TEST, GLUCOSE (ABNORMAL) INR (01/24/2018 6:55 AM CDT) P athologist Signature INR 4.21 (H) 0.86 - 1.14 01/24/2018 DISPUTANTA 8:24 AM CDT [facility] Specimen Anatomical Collection Method Collection Time Receive d Time (Source) Location / / Volume Laterality Blood specimen 01/24/2018 6:55 AM 018 7:53 (specimen) CDT AM CDT Janine Uriarte PA-C LAB - BLOOD ORDERABLES Performing Organization Address City/[facility]/ZIP Code Phon e Number M [facility] [address] [phone] [facility] [address] [id number], U [phone] (ABNORMAL) CBC with platelets (01/24/2018 6:55 AM CDT) Analysis Performed At Patho logist Time Signature WBC 3.9 (L) 4.0 - 11.0 01/24/2018 DISPUTANTA 10e9/L 7:59 AM [facility] RBC Count 3.06 (L) 4.4 - 5.9 01/24/2018 DISPUTANTA 10e12/L 7:59 AM [facility] Hemoglobin 8.2 (L) 13.3 - 01/24/2018 DISPUTANTA 17.7 g/dL 7:59 AM [facility] Hematocrit 26.3 (L) 40.0 - 01/24/2018 DISPUTANTA 53.0 % 7:59 AM [facility] MCV 86 78 - 100 01/24/2018 ROBERTO fl 7:59 AM [facility] MCH 26.8 26.5 - 01/24/2018 ROBERTO 33.0 pg 7:59 AM [facility] MCHC 31.2 (L) 31.5 - 01/24/2018 ROBERTO 36.5 g/dL 7:59 AM [facility] RDW 15.5 (H) 10.0 - 01/24/2018 ROBERTO 15.0 % 7:59 AM [facility] Platelet Count 179 150 - 450 01/24/2018 ROBERTO 10e9/L 7:59 AM [facility] Specimen Anatomical Collection Method Collection Time Receive d Time (Source) Location / / Volume Laterality Blood specimen 01/24/2018 6:55 AM 018 7:53 (specimen) CDT AM CDT Janine Uriarte PA-C LAB - BLOOD ORDERABLES Performing Organization Address City/State/ZIP Code Phon e Number M [facility] [address] [place] [address] [facility] [address] [place] [address], U [phone] (ABNORMAL) Basic metabolic panel (01/24/2018 6:55 AM CDT) [facility] Method Time Signature Sodium 131 (L) 133 - 144 01/24/2018 ROBERTO mmol/L 8:12 AM [facility] Potassium 4.3 3.4 - 5.3 01/24/2018 ROBERTO mmol/L 8:12 AM [facility] Chloride 95 94 - 109 01/24/2018 ROBERTO mmol/L 8:12 AM [facility] Carbon Dioxide 20 20 - 32 01/24/2018 ROBERTO mmol/L 8:12 AM [facility] Anion Gap 16 (H) 3 - 14 01/24/2018 ROBERTO mmol/L 8:12 AM [facility] Glucose 76 70 - 99 01/24/2018 ROBERTO mg/dL 8:12 AM [facility] Urea Nitrogen 78 (H) 7 - 30 01/24/2018 ROBERTO mg/dL 8:12 AM [facility] Creatinine 13.60 (H) 0.66 - 01/24/2018 DISPUTANTA 1.25 mg/dL 8:12 AM [facility] GFR Estimate 4 (L) >60 01/24/2018 DISPUTANTA mL/min/1.7 8:[address] Comment: Non GFR Calc GFR Estimate If 5 (L) >60 mL/min/1.7m2 01/24/2018 8:12 A [facility] Comment: GFR Calc Calcium 8.7 8.5 - 10.1 mg/dL 01/24/2018 8:12 AM [facility] Specimen Anatomical Collection Method Collection Time Receive d Time (Source) Location / / Volume Laterality Blood specimen 01/24/2018 6:55 AM 018 7:53 (specimen) CDT AM CDT Janine Uriarte PA-C LAB - BLOOD ORDERABLES Performing Organization Address City/State/ZIP Code Phon e Number [facility] [address] [place] [address] [facility] [address] [place] [address], [facility] [phone] Glucose by meter (01/24/2018 1:35 AM CDT) athologist Signature Glucose 89 70 - 99 01/24/2018 POINT OF CARE mg/dL 1:52 AM CDT TEST, GLUCOSE Specimen Anatomical Collection Method Collection Time Receive d Time (Source) Location / / Volume Laterality 01/24/2018 1:35 AM 8 1:52 CDT AM CDT Nay Melendrez MD LAB - [place] POCT Performing Organization Address City/State/ZIP Code Phon e Number FV POINT OF CARE TEST, GLUCOSE POINT OF CARE TEST, GLUCOSE (ABNORMAL) Glucose by meter (01/23/2018 10:46 PM CDT) P athologist Signature Glucose 109 (H) 70 - 99 01/23/2018 POINT OF CARE mg/dL 10:58 PM CDT TEST, GLUCOSE Comment: Dr/RN Notified Specimen Anatomical Collection Method Collection Time Receive d Time (Source) Location / / Volume Laterality 01/23/2018 10:46 01/23/2018 PM CDT 10:58 PM CDT Nay DEAN - [facility] POCT Performing Organization Address City/State/ZIP Code Phon e Number FV POINT OF CARE TEST, GLUCOSE POINT OF CARE TEST, GLUCOSE documented in this encounter Visit Diagnoses Diagnosis End stage renal disease (H) - Primary End stage renal disease Foot ulcer (H) Ulcer of other part of foot documented in this encounter Administered Medications Inactive Administered Medications - up to 3 most recent administrations Medication Order MAR Action Action Date Dose Rate Site - MEDICATION INSTRUCTIONS for Dialysis P atients - SEE ADMIN INSTRUCTIONS, Starting on Tue01/23/18 at 2154, Until Tue01/26/18 at 1722, Do not give any medication that may affect blood press ure or volume before dialysis. The following medications may be removed by dialysis and should be given after dialysis: n/a 0.9% sodium chloride BOLUS New Bag 01/26/2018 12:55 PM CDT 250 mLs Hemodialysis Machine, 300 mL, ONCE, On Tue01/26/18 at 0715, For 1 dose, For Dialyzer Prime. (In Dialyzer), Dialysis acetaminophen (TYLENOL) tablet 650 mg Given 01/26/2018 7:42 AM CDT 650 mg 650 mg, Oral, EVERY 4 HOURS PRN, mild pain, Starting on Tue01/23/18 at 2032, Alternate ibuprofen (if ordered) with acetaminophen. Maximum acetaminophen dose from all sources = 75 mg/kg/day not to exceed 4 grams/day. Given 01/26/2018 12:35 AM CDT 650 mg Given 01/25/2018 5:53 PM CDT 650 mg amLODIPine (NORVASC) tablet 10 mg Given 01/25/2018 7:52 AM CDT 10 mg 10 mg, Oral, FOUR TIMES WEEKLY (Once per day on Sun Tue), First dose on Tue01/25/18 at 0800, Take on non-dialysis days, Tuesday, Tuesday, Tuesday, Tuesday atorvastatin (LIPITOR) tablet 20 mg Given 01/25/2018 8:03 PM CDT 20 mg 20 mg, Oral, EVERY EVENING, First dose on Tue01/24/18 at 2000 Given 01/24/2018 9:07 PM CDT 20 mg bisacodyl (DULCOLAX) EC tablet 10 mg Given 01/25/2018 7:51 AM CDT 10 mg 10 mg, Oral, FOUR TIMES WEEKLY (Once per day on Sun Tue), First dose on Tue01/25/18 at 0800 dextrose 50 % injection 25-50 mL 25-50 mL, Intravenous, EVERY 15 MIN PRN, low blood sug ar, Administer over 1-5 Minutes, Starting on Tue01/23/18 at 2053 , Use if have IV access, BG less than 70 mg/dL and meet dose criteria below: Dose if conscious and alert (or disorientated) and NPO = 25 mL Dose if unconscious / no t alert = 50 mL Vesicant. For ordered doses up to 25 g, give IV Push undiluted. Give each 5g over 1 minute. doxercalciferol (HECTOROL) injection 4 m cg Given 01/26/2018 12:57 PM CDT 4 mcg 4 mcg, Intravenous, ONCE IN DIALYSIS/CRRT, On [place] 01/26/18 at 0715, For 1 dose, GIVE DURING DIALYSIS, Dialysis epoetin mauricio (EPOGEN/PROCRIT) injection Given 01/27/20 12:59 PM CDT 4,000 Units 4,000 Units 4,000 Units, Intravenous, ONCE IN DIALYSIS/CRRT, On [place] 01/26/18 at 0715, For 1 dose, Give during dialysis. For ordered doses up to 500 units/kg, give IV Push undiluted over 1 minute., Dialysis glucagon injection 1 mg 1 mg, Subcutaneous, EVERY 15 MIN PRN, low blood sugar, May repeat x 1 only, Starting on Tue01/23/18 at 2053, May giv e SQ or IM. ONLY use glucagon IF patient has NO IV access AND is UNABLE to swallo w AND blood glucose is LESS than or EQUAL to 50 mg/dL. Give IV Push over 1 minute. Reconstitute with 1mL sterile water. glucose gel 15-30 g 15-30 g, Oral, EVERY 15 MIN PRN, low blo od sugar, Starting on Tue01/23/18 at 2053, Give 15 g for BG 51 to 69 mg/dL IF patie nt is conscious and able to swallow. Give 30 g for BG less than or equal to 50 mg/dL IF patient is conscious and able to swallow. Do NOT give glucose gel via enteral tube. IF patient has enteral tube: give apple juice 120 mL (4 oz or 15 g of CHO) via ente ral tube for BG 51 to 69 mg/dL. Give apple juice 240 mL (8 oz or 30 g of CHO) via enteral tube for BG less than or equal to 50 mg/dL. ~Oral gel is preferable for conscious and able to swallow patient. ~IF gel unavailable or patient refuses may provide apple juice 120 mL (4 oz or 15 g of CHO). Document juice on I and O fl owsheet. hydrALAZINE (APRESOLINE) injection 10 mg Given 01/24/2018 2:01 AM CDT 10 mg 10 mg, Intravenous, EVERY 4 HOURS PRN, high blood pressure, give for SBP > 180 or DBP > 100, Starting on Tue01/23/18 at 2051, If heart rate greater than or equal to 60 bpm, use labetalol PRN first. If heart rate less than 60 bpm, use hydralazine PRN first. For ordered doses up to 40 mg, give IV Push undiluted over 1 minute. Given 01/23/2018 9:57 PM CDT 10 mg hydrALAZINE (APRESOLINE) injection 5 mg Given 01/23/2018 10:25 PM CDT 5 mg 5 mg, Intravenous, ONCE, On Tue01/23/18 at 2215, For 1 dose, For ordered doses up to 40 mg, give IV Push undiluted over 1 minute. insulin aspart (NovoLOG) inj (RAPID ACTI NG) Given 01/26/2018 2:48 PM CDT 5 Units 1-7 Units, Subcutaneous, 3 TIMES DAILY BEFORE MEALS, First dose on Tue01/24/18 at 0730, Correction Scale - MEDIUM INSULIN RESISTANCE DOSING Do Not give Correction Insulin if Pre-Meal BG less than 140. For Pre-Meal BG 140 - 189 give 1 unit. For Pre-Meal BG 190 - 239 give 2 units. For Pre-Meal BG 240 - 289 give 3 units. For Pre-Meal BG 290 - 339 give 4 units. For Pre-Meal BG 340- 399 give 5 units. For Pre-Meal BG 400-449 give 6 units For Pre-Meal BG greater than or equal to 450 give 7 units. To be given with prandial insulin, and based on pre-meal blood glucose. Notify provider if glucose greater than or equal to 350 mg/dL after administration of correction dose. If given at mealtime, must be administered 5 min before meal or immediately after. insulin aspart (NovoLOG) inj (RAPID ACTI NG) 1-5 Units, Subcutaneous, AT BEDTIME, First dose on Tue01/23/18 at 2200, MEDIUM INSULIN RESISTANCE DOSING Do Not give Be dtime Correction Insulin if BG less than 200. For BG 200 - 249 give 1 units. For BG 250 - 299 give 2 units. For BG 300 - 349 give 3 units. For BG 350 -399 give 4 units. For BG gre ater than or equal to 400 give 5 units. Notify provider if glucose greater than or equal to 350 mg/dL after administration of correction dose. If gi corey at mealtime, must be administered 5 min before meal or immediately after. labetalol (NORMODYNE/TRANDATE) injection 10 mg 10 mg, Intravenous, EVERY 4 HOURS PRN, h igh blood pressure, SBP > 180. Hold for HR < 55, Administer over 2-8 Minutes, Start ing on Tue01/23/18 at 2211, If heart rate greater than or equal to 60 bpm, use lab etalol PRN first. If heart rate less than 60 bpm, use hydralazine PRN first. For ordered doses u p to 80 mg, give IV Push undiluted. Give each 20 mg over 2 minutes. lisinopril (PRINIVIL/ZESTRIL) tablet 40 mg Given 01/26/2018 2:21 PM CDT 40 mg 40 mg, Oral, DAILY, First dose on Tue01/24/18 at 0900 Given 01/25/2018 7:52 AM CDT 40 mg metoprolol tartrate (LOPRESSOR) tablet 100 Given 01/23/2018 10:28 PM CDT 100 mg mg 100 mg, Oral, ONCE, On Tue01/23/18 at 2215, For 1 dose, Hold for SBP < 100 or HR < 60 ondansetron (ZOFRAN) injection 4 mg 4 mg, Intravenous, EVERY 6 HOURS PRN, nausea, vomiting , Administer over 2-5 Minutes, Starting on Tue01/23/18 at 2032, This is Step 1 of nausea and vomiting management. If nausea not resolved in 15 minutes, go t o Step 2 prochlorperazine (COMPAZINE). Irritant. For ordered doses up to 4 mg, give IV Push undiluted over 2-5 minutes. ondansetron (ZOFRAN-ODT) ODT tab 4 mg 4 mg, Oral, EVERY 6 HOURS PRN, nausea, v omiting, Starting on Tue01/23/18 at 2031, This is Step 1 of nausea and vomiting management. If n ausea not resolved in 15 minutes, go to Step 2 prochlorperazine (COMPAZINE). Do not push through foil backing. Peel back foil and gently remove. Place on to ngue immediately. Administration with liquid unnecessary W ith dry hands, peel back foil backing and gently remove tablet; do not push oral d isintegrating tablet through foil backing; administer immediately on tongue and oral disintegrati ng tablet dissolves in seconds; then swallow with saliva; liquid not required . oxyCODONE IR (ROXICODONE) tablet 5-10 mg Given 01/25/2018 1:09 PM CDT 5 mg 5-10 mg, Oral, EVERY 4 HOURS PRN, other, pain control or improvement in physical function. Hold dose for analgesic side effects., Starting on Tue01/23/18 at 2031 prochlorperazine (COMPAZINE) injection 1 0 mg 10 mg, Intravenous, EVERY 6 HOURS PRN, nausea, vomitin g, Administer over 1-2 Minutes, Starting on Tue01/23/18 at 2031, This is Step 2 of nausea and vomiting management. Give if nausea not resolved 15 minutes aft er giving ondansetron (ZOFRAN). If nausea not resolved in 15 minutes, go to Step 3 metoclopramide (REGLAN), if ordered. For ordered doses up to 10 mg, give IV Push undiluted. Each 5mg over 1 minute. prochlorperazine (COMPAZINE) Suppository 25 mg 25 mg, Rectal, EVERY 12 HOURS PRN, nausea, vomiting, S tarting on Tue01/23/18 at 2031, This is Step 2 of nausea and vomit ing management. Give if nausea not resolved 15 minutes after giving ondansetron (ZOF RAN). If nausea not resolved in 15 minutes, go to Step 3 metoclopramide (REGLAN), if ordered. prochlorperazine (COMPAZINE) tablet 10 m g 10 mg, Oral, EVERY 6 HOURS PRN, vomiting , Starting on Tue01/23/18 at 2032, This is Step 2 of nausea and vomiting management . Give if nausea not resolved 15 minutes after giving ondansetron (ZOFRAN). If na usea not resolved in 15 minutes, go to Step 3 metoclopramide (REGLAN), if ordered. sodium chloride (PF) 0.9% PF flush 3 mL 3 mL, Intracatheter, EVERY 1 HOUR PRN, l ine flush, Starting on Tue01/25/18 at 0922, for peripheral IV flush post IV meds sodium chloride (PF) 0.9% PF flush 3 mL Given 01/26/2018 7:42 AM CDT 3 mLs 3 mL, Intracatheter, EVERY 8 HOURS, First dose on Tue01/25/18 at 1600, And Q1H PRN, to lock peripheral IV dormant line. Given 01/25/2018 4:06 PM CDT 3 mLs documented in this encounter Active and Recently Administered Medications Times are shown in CDT. Scheduled Medication Order 01/24/2018 01/25/2018 01/26/2018 - MEDICATION INSTRUCTIONS for Dialysis Patients - SEE ADMIN INSTRUCTIONS, Starting on Tue01/23/18 at 2154, Until Padmaja 01/26/18 at 1722, Do not give any medication that may affect blood pressure or volume before dialysis. The following medications may be removed by dialysis and should be given after dialysis: n/a 0.9% sodium chloride BOLUS (COMPLETED) 1255 (New Bag - Provider: Sandee Dunbar RN - Comment: dialyzer prime prior to run start) Hemodialysis Machine, 300 mL, ONCE, On 01/26/18 at 0715, For 1 dose, For Dialyzer Prime. (In Dialyzer), Dialysis amLODIPine (NORVASC) tablet 10 mg 751 ( Given - Provider: Esme Espinosa RN) 10 mg, Oral, FOUR TIMES WEEKLY (Once per day on Sun Tue), First dose on Tue01/25/18 at 0800, Take on non-dialysis days, Tuesday, Tuesday, Tuesday, Tuesday atorvastatin (LIPITOR) tablet 20 mg 2106 (Given - Prov ider: Dannielle Nur RN) 2002 (Given - Provider: Ivana Mendez) 20 mg, Oral, EVERY EVENING, First dose on Tue01/24/18 at 2000 bisacodyl (DULCOLAX) EC tablet 10 mg 075 1 (Given - Provider: Esme Espinosa RN) 10 mg, Oral, FOUR TIMES WEEKLY (Once per day on Tue), First dose on Tue01/25/18 at 0800 bupivacaine (MARCAINE) preservative free injection 0.5 % 0830 (Canceled Entry - Provider: Orders Generic Provider - Comment: Automatically canceled at discontinue of medication order) 5 mg (1 mL), Intradermal, ONCE, Tue01/24/18 at 0830, For 1 dose doxercalciferol (HECTOROL) injection 4 mcg (COMPLETED) 1257 (Given - Provider: Sandee Dunbar RN - Comment: given on dialysis) 4 mcg, Intravenous, ONCE IN DIALYSIS/CRR T, On Tue01/26/18 at 0715, For 1 dose, GIVE DURING DIALYSIS, Dialysis epoetin mauricio (EPOGEN/PROCRIT) injection 4,000 Units (COMPLETED) 1259 (Given - Provider: Sandee Dunbar RN - Comment: given on dialysis) 4,000 Units, Intravenous, ONCE IN DIALYS IS/CRRT, On Tue01/26/18 at 0715, For 1 dose, Give during dialysis. For ordered doses up to 500 units/kg, give IV Push undiluted over 1 minute., Dialysis insulin aspart (NovoLOG) inj (RAPID ACTING) 0820 (Not Given - Provider: Esme Espinosa RN - Reason: Order parameters not met)1454 (Not Given - Provider: Esme Espinosa RN - Reason: Other)1730 (Not Given - Provider: Dannielle Nur RN - Reason: Contraindicated) 0731 (Not Given - Provider: Esme Espinosa RN - Reason: Order parameters not met)1239 (Not Given - Provider: Esme Espinosa RN - Reason: Order parameters not met) 0800 (Not Given - Provider: Esme Espinosa RN - Reason: Order parameters not met)1433 (Not Given - Provider: Esme Espinosa RN - Reason: Medication not available)1448 (Given - Provider: Esme Arianna Hillstrom, RN) 1-7 Units, Subcutaneous, 3 TIMES DAILY B EFORE MEALS, First dose on Tue01/24/18 at 0730, Correction Scale - MEDIUM INSULIN RESISTANCE DOSING Do Not give Correction Insulin if Pre-Meal BG less than 140. F 175 2 (Not Given - Provider: Ivana Mendez - Reason: Order parameters not met) or Pre-Meal BG 140 - 189 give 1 unit. Fo r Pre-Meal BG 190 - 239 give 2 units. For Pre-Meal BG 240 - 289 give 3 units. For Pre-Meal BG 290 - 339 give 4 units. For Pre-Meal BG 340- 399 give 5 units. For P re-Meal BG 400-449 give 6 units For Pre- Meal BG greater than or equal to 450 give 7 units. To be given with prandial insulin, and based on pre-meal blood glucose. Notify provider if glucose greater than or equal to 350 mg/dL after administrat ion of correction dose. If given at mealtime, must be administered 5 min before meal or immediately after. insulin aspart (NovoLOG) inj (RAPID ACTING) 2199 (Not Given - Provider: Dannielle Nur RN - Reason: Contraindicated) 2226 (Not Given - Provider: Ivana Mendez - Reason: Order parameters not met) 1-5 Units, Subcutaneous, AT BEDTIME, Fir st dose on Tue01/23/18 at 2200, MEDIUM INSULIN RESISTANCE DOSING Do Not give Bedtime Correction Insulin if BG less than 200. For BG 200 - 249 give 1 units. For BG 250 - 299 give 2 units. For BG 300 - 34 9 give 3 units. For BG 350 -399 give 4 units. For BG greater than or equal to 400 give 5 units. Notify provider if glucose greater than or equal to 350 mg/dL afte r administration of correction dose. If given at mealtime, must be administered 5 min before meal or immediately after. lisinopril (PRINIVIL/ZESTRIL) tablet 40 mg 0820 (Hold - Provider: Esme Espinosa RN - Reason: Other - Comment: hold for dialysis) 0752 (Given - Provider: Esme Espinosa RN)0900 (Canceled Entry - Provider: Esme Espinosa RN) 0800 (Hold - Provider: Esme mercado RN - Reason: Other - Comment: held for dialysis)1421 (Given - Provider: Esme Espinosa, RN) 40 mg, Oral, DAILY, First dose on Tue01/24/18 at 0900 sodium chloride (PF) 0.9% PF flush 3 mL 1606 (Given - Provider: Ivana Mendez) 0614 (Not Given - Provider: Dewayne Cornejo , RN - Reason: Patient sleeping)0742 (Given - Provider: Esme Espinosa, LINDA) 3 mL, Intracatheter, EVERY 8 HOURS, Firs t dose on Tue01/25/18 at 1600, And Q1H PRN, to lock peripheral IV dormant line. PRN Medication Order 01/24/2018 01/25/2018 01/26/2018 acetaminophen (TYLENOL) Suppository 650 mg 650 mg, Rectal, EVERY 4 HOURS PRN, mild pain, Starting Tue01/23/18 at 2031, Alternate ibuprofen (if ordered) with acetaminophen. Maximum acetaminophen dose from all sources = 75 mg/kg/day not to exceed 4 grams/day. acetaminophen (TYLENOL) tablet 650 mg 0303 (Given - Pr ovider: Nola Madden RN)2107 (Given - Provider: Dannielle Nur, LINDA) 0900 (Given - Provider: Esme Espinosa, LINDA)1310 (Given - Provider: Esme Espinosa, LINDA)1753 (Given - Provider: Ivana Mendez) 0035 (Given - Provider: Dewayne Cornejo, RN )0742 (Given - Provider: Esme Espinosa, LINDA) 650 mg, Oral, EVERY 4 HOURS PRN, mild pa in, Starting on Tue01/23/18 at 2031, Alternate ibuprofen (if ordered) with acetaminophen. Maximum acetaminophen dose from all sources = 75 mg/kg/day not to exceed 4 grams/day. dextrose 50 % injection 25-50 mL(Linked Group 1) 25-50 mL, Intravenous, EVERY 15 MIN PRN, low blood sugar, Administer over 1-5 Minutes, Starting on Tue01/23/18 at 2053, Use if have IV access, BG less than 70 mg/dL and meet dose criteria below: Dose if conscious and alert (or disorientated) and NPO = 25 mL Dose if unconscious / not alert = 50 mL Vesicant. For ordered doses up to 25 g, give IV Push undiluted. Give each 5g over 1 minute. glucagon injection 1 mg(Linked Group 1) 1 mg, Subcutaneous, EVERY 15 MIN PRN, lo w blood sugar, May repeat x 1 only, Starting on Tue01/23/18 at 2053, May give SQ or IM. ONLY use glucagon IF patient has NO IV access AND is UNABLE to swallow AND blood glucose is LESS than or EQUAL to 50 mg/dL. Give IV Push over 1 minute. Reconstitute with 1mL sterile water. glucose gel 15-30 g(Linked Group 1) 15-30 g, Oral, EVERY 15 MIN PRN, low blo od sugar, Starting on Tue01/23/18 at 2053, Give 15 g for BG 51 to 69 mg/dL IF patient is conscious and able to swallow. Give 30 g for BG less than or equal to 50 mg/dL IF patient is conscious and able t o swallow. Do NOT give glucose gel via enteral tube. IF patient has enteral tube: give apple juice 120 mL (4 oz or 15 g of CHO) via enteral tube for BG 51 to 69 m g/dL. Give apple juice 240 mL (8 oz or 3 0 g of CHO) via enteral tube for BG less than or equal to 50 mg/dL. ~Oral gel is preferable for conscious and able to swallow patient. ~IF gel unavailable or ricardo ent refuses may provide apple juice 120 mL (4 oz or 15 g of CHO). Document juice on I and O flowsheet. hydrALAZINE (APRESOLINE) injection 10 mg 0201 (Given - Provider: Nola Madden RN) 10 mg, Intravenous, EVERY 4 HOURS PRN, h igh blood pressure, give for SBP > 180 or DBP > 100, Starting on Tue01/23/18 at 2050, If heart rate greater than or equal to 60 bpm, use labetalol PRN first . If heart rate less than 60 bpm, use hy dralazine PRN first. For ordered doses up to 40 mg, give IV Push undiluted over 1 minute. labetalol (NORMODYNE/TRANDATE) injection 10 mg 10 mg, Intravenous, EVERY 4 HOURS PRN, h igh blood pressure, SBP > 180. Hold for HR < 55, Administer over 2-8 Minutes, Starting on Tue01/23/18 at 1, If heart rate greater than or equal to 60 bpm , use labetalol PRN first. If heart rate less than 60 bpm, use hydralazine PRN first. For ordered doses up to 80 mg, give IV Push undiluted. Give each 20 mg over 2 minutes. melatonin tablet 1 mg 1 mg, Oral, AT BEDTIME PRN, sleep, Start ing Tue01/23/18 at 2031, Do not give unless at least 6 hours of uninterrupted sleep is expected. naloxone (NARCAN) injection 0.1-0.4 mg 0.1-0.4 mg, Intravenous, EVERY 2 MIN PRN , opioid reversal, Starting Tue01/23/18 at 2031, For respiratory rate LESS than or EQUAL to 8. Partial reversal dose: 0.1 mg titrated q 2 minutes for Analgesia Si de Effects Monitoring Sedation Level of 3 (frequently drowsy, arousable, drifts to sleep during conversation).Full reversal dose: 0.4 mg bolus for Analgesia Side Effects Monitoring Sedation Level of 4 ( somnolent, minimal or no response to sti mulation). For ordered doses up to 2mg give IVP. Give each 0.4mg over 15 seconds in emergency situations. For non- emergent situations further dilute in 9mL of NS to facilitate titration of response. ondansetron (ZOFRAN) injection 4 mg(Linked Group 2) 4 mg, Intravenous, EVERY 6 HOURS PRN, na usea, vomiting, Administer over 2-5 Minutes, Starting on Tue01/23/18 at 2031, This is Step 1 of nausea and vomiting management. If nausea not resolved in 15 minut es, go to Step 2 prochlorperazine (JULIO ZINE). Irritant. For ordered doses up to 4 mg, give IV Push undiluted over 2-5 minutes. ondansetron (ZOFRAN-ODT) ODT tab 4 mg(Linked Group 2) 4 mg, Oral, EVERY 6 HOURS PRN, nausea, v omiting, Starting on Tue01/23/18 at 2031, This is Step 1 of nausea and vomiting management. If nausea not resolved in 15 minutes, go to Step 2 prochlorperazine (C OMPAZINE). Do not push through foil back ing. Peel back foil and gently remove. Place on tongue immediately. Administration with liquid unnecessary With dry hands, peel back foil backing and gently remov e tablet; do not push oral disintegratin g tablet through foil backing; administer immediately on tongue and oral disintegrating tablet dissolves in seconds; then swallow with saliva; liquid not required. oxyCODONE IR (ROXICODONE) tablet 5-10 mg 1309 (Given - Provider: Esme Espinosa RN) 5-10 mg, Oral, EVERY 4 HOURS PRN, other, pain control or improvement in physical function. Hold dose for analgesic side effects., Starting on Tue01/23/18 at 2031 prochlorperazine (COMPAZINE) injection 10 mg(Linked Group 3) 10 mg, Intravenous, EVERY 6 HOURS PRN, n ausea, vomiting, Administer over 1-2 Minutes, Starting on Tue01/23/18 at 2031, This is Step 2 of nausea and vomiting management. Give if nausea not resolved 15 mi nutes after giving ondansetron (ZOFRAN). If nausea not resolved in 15 minutes, go to Step 3 metoclopramide (REGLAN), if ordered. For ordered doses up to 10 mg, give IV Push undiluted. Each 5mg over 1 minute. prochlorperazine (COMPAZINE) Suppository 25 mg(Linked Group 3) 25 mg, Rectal, EVERY 12 HOURS PRN, nause a, vomiting, Starting on Tue01/23/18 at 2031, This is Step 2 of nausea and vomiting management. Give if nausea not resolved 15 minutes after giving ondansetron (Z OFRAN). If nausea not resolved in 15 min utes, go to Step 3 metoclopramide (REGLAN), if ordered. prochlorperazine (COMPAZINE) tablet 10 mg(Linked Group 3) 10 mg, Oral, EVERY 6 HOURS PRN, vomiting , Starting on Tue01/23/18 at 2031, This is Step 2 of nausea and vomiting management. Give if nausea not resolved 15 minutes after giving ondansetron (ZOFRAN). If nausea not resolved in 15 minutes, go to Step 3 metoclopramide (REGLAN), if ordered. sodium chloride (PF) 0.9% PF flush 3 mL 3 mL, Intracatheter, EVERY 1 HOUR PRN, l ine flush, Starting on Tue01/25/18 at 0922, for peripheral IV flush post IV meds Linked Groups Order Group 1: glucose gel 15-30 gJump to med 15-30 g, Oral, EVERY 15 MIN PRN, low blo od sugar, Starting on Tue01/23/18 at 2053
Give 15 g for BG 51 to 69 mg/dL IF patient is conscious and able to swallow. Give 30 g for BG less than or equa l to 50 mg/dL IF patient is conscious an d able to swallow. Do NOT give glucose gel via enteral tube. IF patient has enteral tube: give apple juice 120 mL (4 oz or 15 g of CHO) via ent eral tube for BG 51 to 69 mg/dL. &n bsp;Give apple juice 240 mL (8 oz or 30 g of CHO) via enteral tube for BG less than or equal to 50 mg/dL. ~Oral gel is preferable for c onscious and able to swallow patient. &n bsp;~IF gel unavailable or patient refuses may provide apple juice 120 mL (4 oz or 15 g of CHO). Document juice on I and O flowsheet.
Or dextrose 50 % injection 25-50 mLJump to med 25-50 mL, Intravenous, EVERY 15 MIN PRN, low blood sugar, Administer over 1-5 Minutes, Starting on Tue01/23/18 at 2053
Use if have IV access, BG less than 70 mg/dL and meet dose criteria below: Dose if conscious and alert (or di sorientated) and NPO = 25 mL Dose if unconscious / not alert = 50 mL Vesicant. For ordered doses up to 25 g, give IV Push undiluted. Give each 5g over 1 minute.
Or glucagon injection 1 mgJump to med 1 mg, Subcutaneous, EVERY 15 MIN PRN, lo w blood sugar, May repeat x 1 only, Starting on Tue01/23/18 at 2053
May give SQ or IM. ONLY use glucagon IF patient has NO IV access AND is UNABLE to swa llow AND blood glucose is LESS than or E QUAL to 50 mg/dL. Give IV Push over 1 minute. Reconstitute with 1mL sterile water.
Group 2: ondansetron (ZOFRAN-ODT) ODT tab 4 mgJump to med 4 mg, Oral, EVERY 6 HOURS PRN, nausea, v omiting, Starting on Tue01/23/18 at 2031
This is Step 1 of nausea and vomiting management. If nausea not resolved in 15 minutes, go to Step 2 prochlorperazine (COMPAZINE). Do not push through foil backing. Peel back foil and gently remove. Place on tongue immediately. Administration with liquid unnecessary With dry hands, pee l back foil backing and gently remove ta blet; do not push oral disintegrating tablet through foil backing; administer immediately on tongue and oral disintegrating tablet dissolves in seconds; then swallow with saliva; liquid not required.
Or ondansetron (ZOFRAN) injection 4 mgJump to med 4 mg, Intravenous, EVERY 6 HOURS PRN, na usea, vomiting, Administer over 2-5 Minutes, Starting on Tue01/23/18 at 2031
This is Step 1 of nausea and vomiting management. If naus ea not resolved in 15 minutes, go to Huy p 2 prochlorperazine (COMPAZINE). Irritant. For ordered doses up to 4 mg, give IV Push undiluted over 2-5 minutes.
Group 3: prochlorperazine (COMPAZINE) injection 10 mgJump to med 10 mg, Intravenous, EVERY 6 HOURS PRN, n ausea, vomiting, Administer over 1-2 Minutes, Starting on Tue01/23/18 at 2031
This is Step 2 of nausea and vomiting management. Give if nausea not resolv ed 15 minutes after giving ondansetron ( ZOFRAN). If nausea not resolved in 15 minutes, go to Step 3 metoclopramide (REGLAN), if ordered. For ordered doses up to 10 mg, give IV Push undiluted. Each 5mg over 1 minute.
Or prochlorperazine (COMPAZINE) tablet 10 mgJump to med 10 mg, Oral, EVERY 6 HOURS PRN, vomiting , Starting on Tue01/23/18 at 2031
This is Step 2 of nausea and vomiting management. Give if nausea not resolved 15 minutes after giving ondansetron (ZOFR AN). If nausea not resolved in 15 m inutes, go to Step 3 metoclopramide (REGLAN), if ordered.
Or prochlorperazine (COMPAZINE) Suppository 25 mgJump to med 25 mg, Rectal, EVERY 12 HOURS PRN, nause a, vomiting, Starting on 01/23/18 at 2032
This is Step 2 of nausea and vomiting management. Give if nausea not resolved 15 minutes after giving ondans etron (ZOFRAN). If nausea not resol ten in 15 minutes, go to Step 3 metoclopramide (REGLAN), if ordered.
documented in this encounter Care Teams Ancillary Services Manager Therapy Relationship Specialty Start Date End Date Preet Huff PCP - General 06/24/11 documented as of this encounter
--- OUTSIDE RECORDS SUMMARY | 2022-09-01 20:12 | XMS_ITS | Encounter Summary ---
:1965 Author Organization [facility] Address [address] [facility] [place] [address] Care Team Providers Name Role Phone Preet Huff Primary Care Provider Reason for Referral Therapeutic Imaging/IR - Closed Specialty Diagnoses / Procedures Referred By Contact Refer red To Contact Radiology. Diagnoses ESRD (end stage renal disease) on dialysis (H) Jaxon Saravia Sh Inte rventional Rad Procedures IR Dialysis Fistulogram Left MD Preet [address] [place] [address] [place] [address] Referral ID Status Reason Start Date Expiration Date Visits Requ ested Visits Authorized [id number] Closed 01/05/2019 01/05/2020 1 1 Encounter Details Date Type Department Care Team Description 01/25/2019 Hospital Encounter [facility] Ricky, ESRD (end stage [facility] Isis renal disease ) on [address] [facility], dialysis (H) [address] [place] [facility] [id number] [phone] [address] [place], [place] [id number] Social History Tobacco Use Types Packs/Day Years Used Date Smoking Tobacco: Never Smokeless Tobacco: Never Alcohol Use Standard Drinks/Week Comments No 0 (1 standard drink = 0.6 oz pure alcoho l) Sex Assigned at Date Recorded Not on file documented as of this encounter Last Filed Vital Signs Vital Sign Reading Time Taken Comments Blood Pressure 149/85 01/25/2019 4:15 PM CDT Pulse 82 01/25/2019 4:15 PM CDT Temperature 35.3 ??C (95.6 ??F) 01/25/2019 11:57 AM CDT Respiratory Rate 16 01/25/2019 4:15 PM CDT Oxygen Saturation 98% 01/25/2019 4:15 PM CDT Inhaled Oxygen Concentration - - Weight 83.5 kg (184 lb) 01/25/2019 11:57 AM CDT Height 162.6 cm (5' 4) 01/25/2019 11:57 AM CDT Body Mass Index 31.58 01/25/2019 11:57 AM CDT documented in this encounter Discharge Instructions Discharge InstructionsRocio Shipley RN - 01/25/2019 12:50 PM CDT Fistulagram Discharge Instructions After you [...] cannot control If you have questions call: [facility] Radiology Dept @ [phone] The provider who performed your procedure was Dr Reinoso. documented in this encounter Medications at Time [...] documented as of this encounter Progress Notes Yasemin Solis RN - 01/25/2019 5:12 PM CDT 1530 Patient returned to [facility], s/p LLE fistulagram with plasty, with resulting good flow now--wide open, per report from Roderick MCKEON. LLE fistulagram site is WDL with quick clot and tegaderm in place. Good bruit/thrill. Patient taking po food/fluids well, minimal discomfort in fistula presently. 1630 Fistula remains stable. Patient was discharged per wheelchair, with mother and test car driver. Rocio Shipley RN - 01/25/2019 2:13 PM CDT Chasidy here to discuss and consent. Readied for procedure, Hansa Reyes APRN CNP - 01/25/2019 1:39 PM CDT Interventional Radiology Pre-Procedure Sedation Assessment Time of Assessment: 1:45 PM Expected Level: Moderate Sedation Indication: Sedation is required for the following type of Procedure: Right thigh fistulagram with possible angioplasty with IV moderate sedation Sedation and procedural consent: Risks, benefits and alternatives were discussed with Patient and Relative Mother PO Intake: Appropriately NPO for procedure ASA Class: Class 3 - SEVERE SYSTEMIC DISEASE, DEFINITE FUNCTIONAL LIMITATIONS. Mallampati: Grade 3: Soft palate [...] IMMEDIATELY PRIOR to sedation and procedure. Hansa Reyes APRN CNP Rocio Shipley RN - 01/25/2019 1:10 PM CDT Patient for left lower extremity fistulogram. Fistula is in left thigh just above inner knee. Motherassists with answering admission questions. States that sometimes she signs for his care and sometimes he signs his own consent. Had dialysis yesterday. Thrill felt in middle of fistula but only bounding pulse in lower and upper fistula. All ordered labs elevated. Await radiologist to ready patient. documented in this encounter Procedure Notes Isis Reinoso DO - 01/25/2019 3:23 PM CDT RADIOLOGY POST PROCEDURE NOTE w/ SEDATION Patient name: Hreminio Victor : 1965 Pre-procedure diagnosis: elevated pressures Post-procedure diagnosis: Same Procedure Date/Time: January 25, 2019 3:23 PM Procedure: left leg fistulogram with angioplasty of the venous anastomosis. Estimated blood loss: None Specimen(s) collected with description: none I determined this patient to be an appropriate candidate for the planned sedation and procedure and reassessed the patient IMMEDIATELY PRIOR to sedation and procedure. The patient tolerated the procedure well with no immediate complications. Significant findings:none See imaging dictation for procedural details. Provider name: Isis Reinoso Auto Haulaway Driver(s):None documented in this encounter Miscellaneous Notes IR Note - Roderick Jack RN - 01/25/2019 3:16 PM CDT Interventional Radiology Intra-procedural Nursing Note Patient Name: Herminio Victor Today's Date: January 25, 2019 Start Time: 1440 End of procedure time: 1513 Procedure: Left lower extremity fistulogram with angioplasty Report given to: RN in [facility] Time pt departs: Staff Sonographer: Other Notes: Pt transferred to IR table. Prepped and draped appropriately. Monitoring equipment applied. NC applied. No complaints of pain at this time. Timeout recorded. 1mg versed 50mcg fentanyl. RODERICK JACK documented in this encounter Plan of Treatment Not on filedocumented as of this encounter Procedures Procedure Name Priority Date/Time Associated Comments Diagnosis IR DIALYSIS FISTULOGRAM Routine 01/25/2019 3:10 PM ESRD (end s tage Results for this LEFT CDT renal disease) on procedure are in dialysis (H) the results section. GLUCOSE BY METER Routine 01/25/2019 1:11 PM ESRD (end stage Re sults for this CDT renal disease) on procedure are in dialysis (H) the results section. INR STAT 01/25/2019 12:14 ESRD (end stage Results for this PM CDT renal disease) on procedure are in dialysis (H) the results section. PARTIAL THROMBOPLASTIN STAT 01/25/2019 12:14 ESRD (end stag e Results for this TIME PM CDT renal disease) on procedure are in dialysis (H) the results section. CREATININE STAT 01/25/2019 12:14 ESRD (end stage Results for this PM CDT renal disease) on procedure are in dialysis (H) the results section. documented in this encounter [...] obtained. The patient was brought to the [facility] ional radiology suite and placed supine [...] obtained. The patient was brought to the [facility] ional radiology suite and placed supine [...] DO Jaxon Saravia MD IMG IR ORDERABLES Glucose by meter (01/25/2019 1:11 PM CDT) P athologist Signature Glucose 72 70 - 99 01/25/2019 POINT OF CARE mg/dL 1:23 PM CDT TEST, GLUCOSE Specimen Anatomical Collection Method Collection Time Receive d Time (Source) Location / / Volume Laterality 01/25/2019 1:11 PM 9 1:23 CDT PM CDT Isis Reinoso DO LAB - BEAKER POCT Performing Organization Address City/State/ZIP Code Phon e Number [facility] POINT OF CARE TEST, GLUCOSE POINT OF CARE TEST, GLUCOSE (ABNORMAL) Partial thromboplastin time (01/25/2019 12:14 PM CDT) P athologist Signature PTT 49 (H) 22 - 37 sec 01/25/2019 [place] 12:55 PM CDT [facility] Specimen Anatomical Collection Method Collection Time Receive d Time (Source) Location / / Volume Laterality Blood specimen 01/25/2019 12:14 9 (specimen) PM CDT 12:15 PM CDT Isis Reinoso DO LAB - BLOOD ORDERABLES Performing Organization Address City/[facility]/ZIP Code Phon e Number [facility] [address] [place] [address] [phone] [facility] [address] [place] [address], [place] [phone] (ABNORMAL) INR (01/25/2019 12:14 PM CDT) P athologist Signature INR 2.82 (H) 0.86 - 1.14 01/25/2019 [place] 12:55 PM CDT [facility] Specimen Anatomical Collection Method Collection Time Receive d Time (Source) Location / / Volume Laterality Blood specimen 01/25/2019 12:14 9 (specimen) PM CDT 12:15 PM CDT Isis Reinoso DO LAB - BLOOD ORDERABLES Performing Organization Address City/[facility]/ZIP Code Phon e Number [facility] [address] [place] [address] [facility] [address] [place] [address], [place] [phone] (ABNORMAL) Creatinine With GFR (01/25/2019 12:14 PM CDT) P athologist Signature Creatinine 9.17 (H) 0.66 - 01/25/2019 [place] 1.25 mg/dL 12:58 PM [facility] GFR Estimate 6 (L) >60 01/25/2019 [place] mL/min/{1. 12:58 PM [facility] 73_m2} [facility]OSPITAL Comment: Non GFR Calc Starting 09/26/2018, serum creatinine ba sed estimated GFR (eGFR) will be calculated using the Chronic Kidney Dise [facility] Epidemiology Collaboration (CKD-EPI) equation. GFR Estimate If 7 (L) >60 mL/min/{1.73_m2} 01/25/2019 12:58 PM [facility] Comment: GFR Calc Starting 09/26/2018, serum creatinine ba sed estimated GFR (eGFR) will be calculated using the Chronic Kidney Dise [facility] Epidemiology Collaboration (CKD-EPI) equation. Specimen Anatomical Collection Method Collection Time Receive d Time (Source) Location / / Volume Laterality Blood specimen 01/25/2019 12:14 9 (specimen) PM CDT 12:15 PM CDT Isis Reinoso DO LAB - BLOOD ORDERABLES Performing Organization Address City/State/ZIP Code Phon e Number M [facility] [address] [phone] [facility] [address] [address], [facility] [phone] documented in this encounter Visit Diagnoses Diagnosis ESRD (end stage renal disease) on dialys [...] as directed by provider., Starting on Padmaja 01/25/19 at 1 428, For 5 doses, Maximum total dose 5 liters., IR Intra-procedure dextrose 50 % injection 25-50 mL 25-50 mL, Intravenous, EVERY 15 MIN PRN, low blood sug ar, Administer over 1-5 Minutes, Starting on Padmaja 01/25/19 at 1200 , Use if have IV access, blood glucose [...] ar, Administer over 1-5 Minutes, Starting on Padmaja 01/25/19 at 1543 , Use if have IV access, blood glucose [...] minute., IR Post-procedure fentaNYL (PF) (SUBLIMAZE) injection 25-5 0 mcg 25-50 mcg, Intravenous, EVERY 5 MIN PRN, severe pain (7-10), If inadequate response may repeat 25 mcg IV slowly every 5 min PRN severe pain; when verbally requested by provider., Administer over 2 Minutes, St arting on Padmaja 01/25/19 at 1336, Doses can be exceeded under direct oversight of patie nt by physician. For ordered IV doses 1-100 mcg give IV Push undiluted over a minimum of 3-5 minut es., IR Intra-procedure fentaNYL (PF) (SUBLIMAZE) injection 25-5 0 mcg Given 01/25/2019 3:05 PM CDT 25 mcg 25-50 mcg, Intravenous, EVERY 5 MIN PRN, severe pain (7-10), If inadequate response may repeat 25 mcg IV slowly every 5 min PRN severe pain; when verbally requested by provider., Administer over 2 Minutes, Starting on Padmaja 01/25/19 at 1429, Doses can be exceeded under direct oversight of patient by physician. For ordered IV doses 1-100 mcg give IV Push undiluted over a minimum of 3-5 minutes., IR Intra-procedure Given 01/25/2019 2:40 PM CDT 25 mcg flumazenil (ROMAZICON) injection 0.2 mg 0.2 mg, Intravenous, EVERY 1 MIN PRN, benzodiazepine r eversal, If inadequate response after 45 seconds, may repeat 0. 2 mg IV every 1 minute PRN oversedation., Administer over 1 Minutes, Starting on [facility] 01/25/19 at 1336, Give over 15 seconds. Maximum total dose of 1 mg. Continue mon itoring until discharge criteria met for a minimum of 2 hours. Irritant. For ordered IV doses 0.1 -1 mg, give IV Push undiluted. Administer each 0.2mg over 15 seconds., IR Intra-procedure flumazenil (ROMAZICON) injection 0.2 mg 0.2 mg, Intravenous, EVERY 1 MIN PRN, benzodiazepine r eversal, If inadequate response after 45 seconds, may repeat 0. 2 mg IV every 1 minute PRN oversedation., Administer over 1 Minutes, Starting on [facility] 01/25/19 at 1429, Give over 15 seconds. Maximum total dose [...] May repeat x 1 only, Starting on [facility] 01/25/19 at 1200, May giv e subcutaneous or IM. ONLY use glucagon IF patient has NO IV access AND is UNABLE t o swallow AND blood glucose is LESS than or EQUAL to 50 mg/dL. If ordered IV, give I V Push over 1 minute. Reconstitute with 1mL sterile water., IR Pre-procedure glucagon injection 1 mg 1 mg, Subcutaneous, EVERY 15 MIN PRN, lo w blood sugar, Starting on [facility] 01/25/19 at 1543, Subcutaneous or IM. ONLY use glucagon IF patient has NO IV access AND is UNABLE to swallow AND blood glucose is L ESS than or EQUAL to 50 mg/dL. If ordered IV, give IV Push over 1 minute. Reconstitute with 1mL sterile water., IR Post-procedure glucose gel 15-30 g 15-30 g, Oral, EVERY 15 MIN PRN, low blo od sugar, Starting on [facility] 01/25/19 at 1200, Give 15 g for blood glucose 51 [...] PRN, low blo od sugar, Starting on Padmaja 01/25/19 at 1543, Give 15 g for blood glucose 51 [...] and Output flowsheet., IR Post-procedu re heparin 10,000 units in 1000 mL NS New Bag 01/25/2019 2:43 PM CDT 10,000 Units 10,000 Units (1,000 mL), TABLE SOLN, CONTINUOUS PRN, Catheter prep table solution use as directed by provider., Starting on Padmaja 01/25/19 at 1428, Maximum total dose 5 liters. FOR USE TABLE SOLUTION ONLY. NOT FOR IV OR IA INFUSION., IR Intra-procedure iopamidol (ISOVUE-300) IV solution 61% 5 0 mL Given 01/25/2019 3:10 PM CDT 20 mLs 50 mL, Intravenous, ONCE, On Padmaja 01/25/19 at 1500, For 1 dose, Supplied and administered by Radiology., Intra-procedure lidocaine (LMX4) cream Topical, EVERY 1 HOUR PRN, pain, with VA D insertion or accessing implanted port., Starting on Padmaja 01/25/19 at 1200, Do NOT give if patient has a history of allergy to any local anesthetic or any anabell product. Apply 30 minutes prior to VAD insertion or port access. MAX Dose: 2.5 g (?? of 5 g t ube), IR Pre-procedure lidocaine 1 % 1 mL 1 mL, Other, EVERY 1 HOUR PRN, mild pain with VAD insertion or accessing implanted port, Starting on [place] 01/25/19 at 1200, Do NOT give if patient has a history of allergy to any local anesthetic or any anabell product. MAX dose 1 mL subcutaneous OR intradermal in divided doses., IR Pre-procedure lidocaine 1 % 1-30 mL 1-30 mL, Intradermal, ONCE PRN, local anesthetic. When verbally ordered by prescriber during the procedure., Starti ng on Padmaja 01/25/19 at 1336, For 1 dose, Dose to be divided into smaller volumes appropriate for the procedure. Provider to administer intradermally. Dose to be div ided into smaller volumes appropriate for the procedure., IR Intra-procedure lidocaine 1 % 1-30 mL Given by Other 01/25/2019 3:05 PM CDT 1 mL 1-30 mL, Intradermal, ONCE Clinician PRN, local anesthetic. When verbally ordered by prescriber during the procedure., Starting on Padmaja 01/25/19 at 1429, For 1 dose, Dose to be divided into smaller volumes appropriate for the procedure. Provider to administer intradermally. Dose to be divided into smaller volumes appropriate for the procedure., IR Intra-procedure medication instruction CONTINUOUS PRN, Starting on Padmaja 01/25/19 at 1200, Until Padmaja 01/25/19 at 1923, Take other usual AM meds with small amount of water, including Aspirin, IR Pre-procedure midazolam (VERSED) injection 0.5-2 mg 0.5-2 mg, Intravenous, Administer over 1 Minutes, EVER Y 4 MIN PRN, sedation, If inadequate response may repeat 0.5 mg IV slowly every 4 minutes PRN sedation until desired response; when verbally requeste d by provider., Starting on Padmaja 01/25/19 at 1336, Doses can be exceeded under direct oversight of patient by physician. This drug may cause significant respiratory d epression. Monitor respiratory status and vital signs carefully for 1 hour after each dose., IR Intra-procedure midazolam (VERSED) injection 0.5-2 mg Given 01/25/2019 3:05 PM CDT 0.5 mg 0.5-2 mg, Intravenous, Administer over 1 Minutes, EVERY 4 MIN PRN, sedation, If inadequate response may repeat 0.5 mg IV slowly every 4 minutes PRN sedation until desired response; when verbally requested by provider., Starting on Padmaja 01/25/19 at 1429, Doses can be exceeded under direct oversight of patient by physician. This drug may cause significant respiratory depression. Monitor respiratory status and vital signs carefully for 1 hour after each dose., IR Intra-procedure Given 01/25/2019 2:40 PM CDT 0.5 mg naloxone (NARCAN) injection 0.1-0.4 mg 0.1-0.4 mg, Intravenous, EVERY 2 MIN PRN , opioid reversal, Starting on Padmaja 01/25/19 at 1336, For respiratory rate LESS than or EQUAL [...] facilitate t itration of response., IR Intra-procedure naloxone (NARCAN) injection 0.1-0.4 mg 0.1-0.4 mg, Intravenous, EVERY 2 MIN PRN , opioid reversal, Starting on Padmaja 01/25/19 at 1429, For respiratory rate LESS than or EQUAL [...] HOUR PRN, l ine flush, Starting on Padmaja 01/25/19 at 1200, for peripheral IV flush post IV meds, IR Pre-procedure sodium chloride (PF) 0.9% PF flush 3 mL 3 mL, Intracatheter, EVERY 8 HOURS, Firs t dose on Padmaja 19 at 1215, And Q1H PRN, to lock peripheral IV dormant line., IR Pre-procedure sodium chloride 0.9% infusion Rate/Dose Change 01/25/2019 1:30 PM CDT 10 mL/hr at 100 mL/hr, Intravenous, CONTINUOUS, IF PATIENT IS RECEIVING RENAL DIALYSIS, RN to reduce rate of 0.9 % sodium chloride IV solution to 10 mL /hour (TKO) IV infusion to prevent fluid overload., IR Pre-procedure, Starting on Padmaja 01/25/19 at 1215, Until Padmaja 01/25/19 at 1923 New Bag 01/25/2019 12:46 PM CDT 100 mL/hr documented in this encounter Active and Recently Administered Medications Times are shown in CDT. Scheduled Medication Order 01/23/2019 01/24/2019 01/25/2019 iopamidol (ISOVUE-300) IV solution 61% 50 mL (COMPLETED) 1510 (Given - Provider: Lev Cobian - Comment: 50 iso opened 20 used) 50 mL, Intravenous, ONCE, On Padmaja 01/25/19 at 1500, For 1 dose, Supplied and administered by Radiology., Intra-procedure sodium chloride (PF) 0.9% PF flush 3 mL 1215 (Canceled Entry - Provider: Orders Generic Provider - Comment: Automatically canceled at discontinue of medication order) 3 mL, Intracatheter, EVERY 8 HOURS, Firs t dose on Padmaja 19 at 1215, And Q1H PRN, to lock peripheral IV dormant line., IR Pre-procedure Continuous Medication Order 01/23/2019 01/24/2019 01/25/2019 sodium chloride 0.9% infusion 12 46 (New Bag - Provider: Rocio Shipley, RN)1330 (Rate/Dose Change - Provider: Rocio Shipley, RN)1540 (Stopped - Provider: Yasemin Solis RN) at 100 mL/hr, Intravenous, CONTINUOUS, I F PATIENT IS RECEIVING RENAL DIALYSIS, RN to reduce rate of 0.9 % sodium chloride IV solution to 10 mL /hour (TKO) IV infusion to prevent fluid overload., IR Pre- procedure, Starting on Padmaja 01/25/19 at 1215, Until Padmaja 01/25/19 at 1923 PRN Medication Order 01/23/2019 01/24/2019 01/25/2019 0.9% sodium chloride TABLE SOLN TABLE SOLN, 1,000 mL, CONTINUOUS PRN, li ne flush, Catheter prep table solution use as directed by provider., Starting on Padmaja 01/25/19 at 1428, For 5 doses, Maximum total dose 5 liters., IR Intra-procedure dextrose 50 % injection 25-50 mL(Linked Group 1) 25-50 mL, Intravenous, EVERY 15 MIN PRN, low blood sugar, Administer over 1-5 Minutes, Starting on Padmaja 01/25/19 at 1200, Use if have IV access, blood glucose less than 70 mg/dL and meet dose criteria bel ow: Dose if conscious and alert (or diso rientated) and NPO = 25 mL Dose if unconscious / not alert = 50 mL Vesicant. For ordered doses up to 25 g, give IV Push undiluted. Give each 5g over 1 minute., IR Pre-procedure dextrose 50 % injection 25-50 mL(Linked Group 2) 25-50 mL, Intravenous, EVERY 15 MIN PRN, low blood sugar, Administer over 1-5 Minutes, Starting on Padmaja 01/25/19 at 1543, Use if have IV access, blood glucose less than 70 mg/dL and meet dose criteria bel ow: Dose if conscious and alert (or diso rientated) and NPO = 25 mL Dose if unconscious / not alert = 50 mL Vesicant. For ordered doses up to 25 g, give IV Push undiluted. Give each 5g over 1 minute., IR Post-procedure fentaNYL (PF) (SUBLIMAZE) injection 25-50 mcg 25-50 mcg, Intravenous, EVERY 5 MIN PRN, severe pain, If inadequate response may repeat 25 mcg IV slowly every 5 min PRN severe pain; when verbally requested by provider., Administer over 2 Minutes, Sta rting on Padmaja 01/25/19 at 1336, Doses can be exceeded under direct oversight of patient by physician. For ordered IV doses 1-100 mcg give IV Push undiluted over a minimum of 3-5 minutes., IR Intra-procedure fentaNYL (PF) (SUBLIMAZE) injection 25-50 mcg 1440 (Given - Provider: Roderick Jack RN)1505 (Given - Provider: Roderick Jack RN) 25-50 mcg, Intravenous, EVERY 5 MIN PRN, severe pain, If inadequate response may repeat 25 mcg IV slowly every 5 min PRN severe pain; when verbally requested by provider., Administer over 2 Minutes, Sta rting on Padmaja 01/25/19 at 1429, Doses can be exceeded under direct oversight [...] Administer over 1 Minutes, Starting on Padmaja 01/25/19 at 1336, Give over 15 seconds. M aximum total dose of 1 mg. Continue monitoring until discharge criteria met for a minimum of 2 hours. Irritant. For ordered IV doses 0.1-1 mg, give IV Push undilu suzan. Administer each 0.2mg over 15 seconds., IR Intra-procedure flumazenil (ROMAZICON) injection 0.2 mg 0.2 mg, Intravenous, EVERY 1 MIN PRN, be nzodiazepine reversal, If inadequate response after 45 seconds, may repeat 0.2 mg IV every 1 minute PRN oversedation., Administer over 1 Minutes, Starting on Padmaja 01/25/19 at 1429, Give over 15 seconds. M aximum total dose of 1 mg. Continue monitoring until discharge criteria met for a minimum of 2 hours. Irritant. For ordered IV doses 0.1-1 mg, give IV Push undilu suzan. Administer each 0.2mg over 15 seconds., IR Intra-procedure glucagon injection 1 mg(Linked Group 1) 1 mg, Subcutaneous, EVERY 15 MIN PRN, lo w blood sugar, May repeat x 1 only, Starting on Padmaja 01/25/19 at 1200, May give subcutaneous or IM. ONLY use glucagon IF patient has NO IV access AND is UNABLE to s wallow AND blood glucose is LESS than or EQUAL to 50 mg/dL. If ordered IV, give IV Push over 1 minute. Reconstitute with 1mL sterile water., IR Pre-procedure glucagon injection 1 mg(Linked Group 2) 1 mg, Subcutaneous, EVERY 15 MIN PRN, lo w blood sugar, Starting on Padmaja 01/25/19 at 1543, Subcutaneous or IM. ONLY use glucagon IF patient has NO IV access AND is UNABLE to swallow AND blood glucose is LE SS than or EQUAL to 50 mg/dL. If ordered IV, give IV Push over 1 minute. Reconstitute with 1mL sterile water., IR Post-procedure glucose gel 15-30 g(Linked Group 1) 15-30 g, Oral, EVERY 15 MIN PRN, low blo od sugar, Starting on Padmaja 01/25/19 at 1200, Give 15 g for blood glucose 51 to 69 mg/dL IF patient is conscious and able to swallow. Give 30 g for blood glucose les s than or equal to 50 mg/dL IF patient i s conscious and able to swallow. Do NOT give glucose gel via enteral tube. IF patient has enteral tube: give apple juice 120 mL (4 oz or 15 g of CHO) via enteral tube for blood glucose 51 to 69 mg/dL. G bill apple juice 240 mL (8 oz or [...] PRN, low blo od sugar, Starting on Padmaja 01/25/19 at 1543, Give 15 g for blood glucose 51 to 69 mg/dL IF patient is conscious and able to swallow. Give 30 g for blood glucose les s than or equal to 50 mg/dL IF patient i s conscious and able to swallow. Do NOT give glucose gel via enteral tube. IF patient has enteral tube: give apple juice 120 mL (4 oz or 15 g of CHO) via enteral tube for blood glucose 51 to 69 mg/dL. G bill apple juice 240 mL (8 oz or [...] Intake and Output flowsheet., IR Post-procedure heparin 10,000 units in 1000 mL NS 1443 (New Bag - Provider: Roderick Jack RN) 10,000 Units (1,000 mL), TABLE SOLN, CON TINUOUS PRN, Catheter prep table solution use as directed by provider., Starting on Padmaja 01/25/19 at 1428, Maximum total dose 5 liters. FOR USE TABLE SOLUTION ON LY. NOT FOR IV OR IA INFUSION., IR Intra-procedure lidocaine (LMX4) cream Topical, EVERY 1 HOUR PRN, pain, with VA D insertion or accessing implanted port., Starting on Padmaja 01/25/19 at 1200, Do NOT give if patient has a history of allergy to any local anesthetic or any anabell product. Apply 30 minutes prior to VAD i nsertion or port access. MAX Dose: 2.5 g (?? of 5 g tube), IR Pre-procedure lidocaine 1 % 1 mL 1 mL, Other, EVERY 1 HOUR PRN, mild pain with VAD insertion or accessing implanted port, Starting on Padmaja 01/25/19 at 1200, Do NOT give if patient has a history of allergy to any local anesthetic or any anabell product. MAX dose 1 mL subcutaneo us OR intradermal in divided doses., IR Pre-procedure lidocaine 1 % 1-30 mL 1-30 mL, Intradermal, ONCE PRN, local an esthetic. When verbally ordered by prescriber during the procedure., Starting on Padmaja 01/25/19 at 1336, For 1 dose, Dose to be divided into smaller volumes appropri ate for the procedure. Provider to admin ister intradermally. Dose to be divided into smaller volumes appropriate for the procedure., IR Intra-procedure lidocaine 1 % 1-30 mL (COMPLETED) 1505 (Given by Other Clinician - Provider: Roderick Jack RN - Comment: ashley) 1-30 mL, Intradermal, ONCE PRN, local an esthetic. When verbally ordered by prescriber during the procedure., Starting on Padmaja 01/25/19 at 1429, For 1 dose, Dose to be divided into smaller volumes appropri ate for the procedure. Provider to admin ister intradermally. Dose to be divided into smaller volumes appropriate for the procedure., IR Intra-procedure medication instruction CONTINUOUS PRN, Starting on Padmaja 01/25/19 at 1200, Until Padmaja 01/25/19 at 1923, Take other usual AM meds with small amount of water, including Aspirin, IR Pre-procedure midazolam (VERSED) injection 0.5-2 mg 0.5-2 mg, Intravenous, Administer over 1 Minutes, EVERY 4 MIN PRN, sedation, If inadequate response may repeat 0.5 mg IV slowly every 4 minutes PRN sedation until desired response; when verbally request ed by provider., Starting on Padmaja 01/25/19 at 1336, Doses can be exceeded under direct oversight of patient by physician. This drug may cause significant respiratory depression. Monitor respiratory status and vital signs carefully for 1 hour after each dose., IR Intra -procedure midazolam (VERSED) injection 0.5-2 mg 1440 (Given - Provider: Roderick Jack RN)1505 (Given - Provider: Roderick Jack RN) 0.5-2 mg, Intravenous, Administer over 1 Minutes, EVERY 4 MIN PRN, sedation, If inadequate response may repeat 0.5 mg IV slowly every 4 minutes PRN sedation until desired response; when verbally request ed by provider., Starting on Padmaja 01/25/19 at 1429, Doses can be exceeded under direct oversight of patient by physician. This drug may cause significant respiratory depression. Monitor respiratory status and vital signs carefully for 1 hour after each dose., IR Intra -procedure naloxone (NARCAN) injection 0.1-0.4 mg 0.1-0.4 mg, Intravenous, EVERY 2 MIN PRN , opioid reversal, Starting on Padmaja 01/25/19 at 1336, For respiratory rate LESS than or EQUAL to 8. Partial reversal dose: 0.1 mg titrated q 2 minutes for Analgesia Side Effects Monitoring Sedation Level of 3 [...] to facilitate titration of response., IR Intra-procedure naloxone (NARCAN) injection 0.1-0.4 mg 0.1-0.4 mg, Intravenous, EVERY 2 MIN PRN , opioid reversal, Starting on Padmaja 01/25/19 at 1429, For respiratory rate LESS than or EQUAL to 8. Partial reversal dose: 0.1 mg titrated q 2 minutes for Analgesia Side Effects Monitoring Sedation Level of 3 [...] HOUR PRN, l ine flush, Starting on Padmaja 01/25/19 at 1200, for peripheral IV flush post IV meds, IR Pre-procedure Linked Groups Order Group 1: glucose gel 15-30 gJump to med 15-30 g, Oral, EVERY 15 MIN PRN, low blo od sugar, Starting on Padmaja 01/25/19 at 1200
Give 15 g for blood glucose 51 to 69 mg/dL IF patient is conscious and able to swallow. Give 30 g for blood glu cose less than or equal to 50 mg/dL IF p atient is conscious and able to swallow. Do NOT give glucose gel via enteral tube. IF patient has enteral tube: give apple juice 120 mL (4 oz o r 15 g of CHO) via enteral tube for bloo d glucose 51 to 69 mg/dL. Give apple juice 240 mL (8 oz or 30 g of CHO) via enteral tube for blood glucose less than or equal to 50 mg/dL.& nbsp; ~Oral gel is preferable for c onscious and able to swallow patient. ~IF gel unavailable or patient refuses may provide apple juice 120 mL (4 oz or 15 g of CHO). Document juice on I and O flowsheet.
IR Pre-procedure Or dextrose 50 % injection 25-50 mLJump to med 25-50 mL, Intravenous, EVERY 15 MIN PRN, low blood sugar, Administer over 1-5 Minutes, Starting on Padmaja 01/25/19 at 1200
Use if have IV access, blood glucose less than 70 mg/dL and meet dose crit eria below: Dose if conscious and a lert (or disorientated) and NPO = 25 mL Dose if unconscious / not alert = 50 mL Vesicant. For ordered doses up to 25 g, give IV Push undiluted. Give each 5g over 1 minute.
IR Pre-procedure Or glucagon injection 1 mgJump to med 1 mg, Subcutaneous, EVERY 15 MIN PRN, lo w blood sugar, May repeat x 1 only, Starting on Padmaja 01/25/19 at 1200
May give subcutaneous or IM. ONLY use glucagon IF patient has NO IV access AND is GARIMA BLE to swallow AND blood glucose is LESS than or EQUAL to 50 mg/dL. If ordered IV, give IV Push over 1 minute. Reconstitute with 1mL sterile water.
IR Pre-procedure Group 2: glucose gel 15-30 gJump to med 15-30 g, Oral, EVERY 15 MIN PRN, low blo od sugar, Starting on Padmaja 01/25/19 at 1543
Give 15 g for blood glucose 51 to 69 mg/dL IF patient is conscious and able to swallow. Give 30 g for blood glu cose less than or equal to 50 mg/dL IF p atient is conscious and able to swallow. Do NOT give glucose gel via enteral tube. IF patient has enteral tube: give apple juice 120 mL (4 oz o r 15 g of CHO) via enteral tube for bloo d glucose 51 to 69 mg/dL. Give apple juice 240 mL (8 oz or 30 g of CHO) via enteral tube for blood glucose less than or equal to 50 mg/dL.& nbsp; ~Oral gel is pref erable for conscious and able to swallow patient. ~IF gel unavailable or patient refuses may provide apple juice 120 mL (4 oz or 15 g of CHO ). Document juice on Intake and Output f lowsheet.
IR Post-procedure Or dextrose 50 % injection 25-50 mLJump to med 25-50 mL, Intravenous, EVERY 15 MIN PRN, low blood sugar, Administer over 1-5 Minutes, Starting on Padmaja 01/25/19 at 1543
Use if have IV access, blood glucose less than 70 mg/dL and meet dose crit eria below: Dose if conscious and a lert (or disorientated) and NPO = 25 mL Dose if unconscious / not alert = 50 mL Vesicant. For ordered doses up to 25 g, give IV Push undiluted. Give each 5g over 1 minute.
IR Post-procedure Or glucagon injection 1 mgJump to med 1 mg, Subcutaneous, EVERY 15 MIN PRN, lo w blood sugar, Starting on Padmaja 01/25/19 at 1543
Subcutaneous or IM. ONLY use glucagon IF patient has NO IV access AND is UNABLE to swallow AND blood gluco se is LESS than or EQUAL to 50 mg/dL.&nb sp;If ordered IV, give IV Push over 1 minute. Reconstitute with 1mL sterile water.
IR Post-procedure documented in this encounter Care Teams Welder Operator Relationship Specialty Start Date End Date Preet Huff PCP - General 06/24/11 documented as of this encounter
--- OUTSIDE RECORDS SUMMARY | 2022-09-01 20:12 | XMS_ITS | Encounter Summary ---
:1965 Author Organization [place] Address [address] [place] [address] Care Team Providers Name Role Phone Preet Huff Primary Care Provider Reason for Visit Reason Comments RECHECK LLE AVF US (12:45 VHC, 1:45 WRO) History of left leg AVF; s/p fistulogram on 01/25/19 for recurrent outflo w vein stenosis, dilation of venous anastomosis; 3 month follow up to 01/25/19 fistulogram; pt to see Dr. Saravia Encounter Details Date Type Department Care Team Description 06/07/2019 Office Visit [facility] Jaxon Saravia ESRD (en d stage renal [facility] MD disease) on dialysis [address] ([address] ) (Primary Dx) [address] [place] [id number] [place] [id number] Social History Tobacco Use Types Packs/Day Years Used Date Smoking Tobacco: Never Smokeless Tobacco: Never Alcohol Use Standard Drinks/Week Comments No 0 (1 standard drink = 0.6 oz pure alcoho l) Sex Assigned at Date Recorded Not on file documented as of this encounter Last Filed Vital Signs Vital Sign Reading Time Taken Comments Blood Pressure 113/72 06/07/2019 1:35 PM CDT Pulse 59 06/07/2019 1:35 PM CDT Temperature - - Respiratory Rate - - Oxygen Saturation - - Inhaled Oxygen Concentration - - Weight - - Height - - Body Mass Index - - documented in this encounter Progress Notes Jaxon Saravia MD - 06/07/2019 1:45 PM CDT Images from the original note were not included. [facility] Herminio Victor returns for follow-up of his left mid thigh superficial femoral artery to proximal thigh Procol dialysis graft. He has had recurrent problems with stenosis of the venous anastomosisinto the superficial femoral vein but no more central venous problems. He did require a fistulogram with angioplasty of the stenosis on 01/25/2019. These images were reviewed and the rest of the graft looks excellent. He has had similar angioplasties of the same site on 12/07/2017 and again on 08/09/2018. With the recurrent stenosis he comes today for repeat duplex ultrasound particular of the stenotic area in the venous outflow. He dialyzes at the [facility] unit every [id number]. He lives with his aunt who is with him today. Herminio has some cognitive issues which have been very stable. Also of note he has developed a left heel pressure ulcer in the past with known underlying infrapopliteal PAD but fortunately this is healed. He wears good shoes with orthotics with no recurrence over the last several years. We have always been concerned about a steal developing in his left leg but this is not been a clinical issue even after the improved outflow with the angioplasties. He has no upper extremity access sites available and we have failed on his right leg. Thus, preserving the left leg access is critical for his dialysis. PMH: Medications: Norvasc, Lipitor, Prilosec, Coumadin Non-smoker. Exam: At his baseline. His aunt is with him. Very comfortable. Blood pressure 113/72 right arm. Pulse 59 Chest = clear Cardiovascular= regular rate Strong pulse within the left thigh Procol graft. stable aneurysmal dilatation. Good overlying skin. No leg swelling. No recurrent ulcers. Bedside Doppler with a +3 biphasic right anterior tibial signal but a more monophasic left anteriortibial signal and no posterior tibial signal on the left. Duplex today reveals a recurrent stenosis at the venous outflow and a 3.2 mm for a length of 11.5 mm. The vein beyond this is 6.7 mm. Procol itself is widely patent. Outflow volume of 1537 mL/min Impression: Progressively increasing stenosis at the site that is been angioplastied multiple times.Otherwise the Procol is widely patent as is the outflow vein. With the recurrent stenosis following the angioplasty even though we get 6 to 7 months I expect this will continue. I discussed with he andhis aunt of continued follow-up and repeat angioplasty of the stenosis becomes critical or to have aplanned elective surgical outflow revision with a bovine patch which hopefully will correct the problem on the long-term. They are interested in in the surgical procedure. This will be scheduled electively since the Procol is working well. He will require a general anesthetic and an overnight stay in the hospital. We will hold his Coumadin for 4 days. I spent 25 minutes with the patient and his aunt with over 50% in counseling. Jaxon Saravia MD CC: [facility] dialysis unit Dr. Preet Huff documented in this encounter Nursing Notes Joi Russell - 06/07/2019 1:45 PM CDT Herminio Victor is a 54 year old male who presents for: Chief Complaint Patient presents with ??? RECHECK LLE AVF US (12:45 C, 1:45 WRO) History of left leg AVF; s/p fistulogram on 01/25/19 for recurrent outflow vein stenosis, dilation of venous anastomosis; 3 month follow up to 01/25/19 fistulogram; pt to see Dr. Saravia Vitals: Vitals: 06/07/19 1335 BP: 113/72 BP Location: Left arm Patient Position: Chair Cuff Size: Adult Regular Pulse: 59 BMI: Estimated body mass index is 31.58 kg/m?? as calculated from the following: Height as of 01/25/19: 5' 4 (1.626 m). Weight as of 01/25/19: 184 lb (83.5 kg). Pain Score: Data Unavailable Joi Russell MA documented in this encounter Plan of Treatment Not on filedocumented as of this encounter Visit Diagnoses Diagnosis ESRD (end stage renal disease) on dialys is (H) - Primary End stage renal disease documented in this encounter Care Teams Map Mounter Relationship Specialty Start Date End Date Preet Huff PCP - General 06/24/11 documented as of this encounter
--- OUTSIDE RECORDS SUMMARY | 2022-09-01 20:12 | XMS_ITS | Encounter Summary ---
:1965 Author Organization [place] Address [address] [facility] [place] [address] Care Team Providers Name Role Phone Preet Huff Primary Care Provider Encounter Details Date Type Department Care Team Description 09/20/2019 Telephone [facility] Jaxon Saravia, Clinic Evelio HARPER [address] [id number] [place] [id number] [phone] (Wo rk) Social History Tobacco Use Types Packs/Day Years Used Date Smoking Tobacco: Never Smokeless Tobacco: Never Alcohol Use Standard Drinks/Week Comments No 0 (1 standard drink = 0.6 oz pure alcoho l) Sex Assigned at Date Recorded Not on file documented as of this encounter Miscellaneous Notes Telephone Encounter - Wanda Pichardo MA - 09/25/2019 8:20 AM CST Fistulogram orders faxed to [facility] IR dept on 09/21/19, patient is scheduled on 10/02/19 for fistulogram. ER HELPER Telephone Encounter - Janell Edgar RN - 09/24/2019 2:48 PM CST Late charting. Provided order to digital project coordinator on Tuesday. She is coordinating fistulogram enrique. Routing to Dr. Saravia as fyi. SUSHIL Love, RN [facility] ER HELPER Telephone Encounter - Janell Edgar RN - 09/21/2019 9:10 AM CST I called and spoke to Lisa at [facility], she reports pts venous pressures have been high, infiltrated venous needles 4 times now, has sores and aneurysm. Explained Dr. Saravia approved for pt to have fistulogram at [facility]. Lisa will fax over orderrom enrique. Will have digital project coordinator Wanda coordinate fistulogram at [facility] enrique. SUSHIL Love, RN [facility] ER HELPER Telephone Encounter - Mona Vang RN - 09/20/2019 6:20 PM CST Reviewed with Dr. Saravia. If [facility] reports high venous pressures, pt may get fistulogram at [facility]. Will await call back from [facility]. Surgery order placed back in Dr. Saravia's TBD folder. SUSHIL Vargas, LINDA [facility] ER HELPER Telephone Encounter - Mona Vang RN - 09/20/2019 2:54 PM CST RN contacted [facility] to request more information regarding pt's dialysis runs and access concerns. The nurse had left for the day and copywriter received limited information, however it was knownpt had infiltrated earlier this week. Requested dialysis nurse to call back tomorrow with more information. Nurse triage number provided. Will need to discuss with Dr. Saravia for his recommendations. DANISHA 06/07/19 he noted, With the recurrent stenosis following the angioplasty even though we get 6 to 7 months I expect this will continue. Idiscussed with he and his aunt of continued follow-up and repeat angioplasty of the stenosis becomescritical or to have a planned elective surgical outflow revision with a bovine patch which hopefullywill correct the problem on the long-term. SUSHIL Vargas, RN [facility] ER HELPER Telephone Encounter - Wanda Pichardo MA - 09/20/2019 2:32 PM CST Jesika, nurse from [facility], called and left a message stating that the patient was havingproblems with his left leg AVF during dialysis. She states that they would like to schedule a fistulogram with Dr. Saravia's office. Routing to nurse triage for Dr. Saravia's recommendation. ER HELPER documented in this encounter Plan of Treatment Not on filedocumented as of this encounter Visit Diagnoses Not on filedocumented in this encounter Care Teams Drum Worker Relationship Specialty Start Date End Date Preet Huff PCP - General 06/24/11 documented as of this encounter
--- OUTSIDE RECORDS SUMMARY | 2022-09-01 20:12 | XMS_ITS | Encounter Summary ---
:1965 Author Organization [place] [facility] Address [address] [place] [id number] Care Team Providers Name Role Phone Preet Huff Primary Care Provider Encounter Details Date Type Department Care Team Description 06/07/2019 Travel Social History Tobacco Use Types Packs/Day [...] on filedocumented in this encounter Care Teams Operational Meteorologist Relationship Specialty Start Date End Date Preet Huff PCP - General 06/24/11 documented as of this encounter
--- OUTSIDE RECORDS SUMMARY | 2022-09-01 20:12 | XMS_ITS | Encounter Summary ---
:1965 Author Organization [facility] Address [address] [place] [id number] Care Team Providers Name Role Phone Preet Huff Primary Care Provider Encounter Details Date Type Department Care Team Description 01/25/2019 Travel Social History Tobacco Use Types Packs/Day [...] on filedocumented in this encounter Care Teams Tender Labor Relationship Specialty Start Date End Date Preet Huff PCP - General 06/24/11 documented as of this encounter
--- OUTSIDE RECORDS SUMMARY | 2022-09-01 20:12 | XMS_ITS | Encounter Summary ---
:1965 Author Organization [facility] Address [address] [place] [address] Care Team Providers Name Role Phone Preet Huff Primary Care Provider Reason for Visit Reason Onset Date Comments Nurse Advice Line 07/31/2018 Encounter Details Date Type Department Care Team Description 07/31/2018 Telephone [facility] Jaxon Saravia Nurse Ad vice Line [facility] MD [address] [place] [phone] [address] [phone] (Wo rk) Social History Tobacco Use Types Packs/Day Years Used Date Smoking Tobacco: Never Smokeless Tobacco: Never Alcohol Use Standard Drinks/Week Comments No 0 (1 standard drink = 0.6 oz pure alcoho l) Sex Assigned at Date Recorded Not on file documented as of this encounter Miscellaneous Notes Telephone Encounter - Angie Mcclellan - 07/31/2018 4:16 PM CDT Herminio's AVF US scheduled for 08/09/18 at 1:30 at [facility]. Will try to add WRO visit if he does not have surgery, and he ok's. I will call Sofi at [facility] on 08/01 to inform. Angie Mcclellan - Vinyl Dipper at [facility] Telephone Encounter - Lizy Edgar, RN - 07/31/2018 9:44 AM CDT Patient was due for 3 month AVF US on 03/10/[address] Saravia. Will route to scheduling to schedule patient for US now and OV with Dr. Saravia at next available. Lizy LING, RN Telephone Encounter - Angie Mcclellan - 07/31/2018 8:15 AM CDT Reason for Call: Review patient symptoms Detailed comments: left femoral avf graft working well, however high dynamic venous pressures latelyand bruit outflow is diminished. LINDA Farah at [facility] wants to know what Dr Saravia thinks, Is US needed? Herminio is not wearing the wound vac on his foot, so his ulcer must be better. Aunt Thelma will probably say US is not needed but Sofi wants to be pre-emptive Phone Number Patient can be reached at: LINDA Farah @ [facility] would like a call back on 08/01 Best Time: any Can we leave a detailed message on this number? YES Call taken on 07/31/2018 at 8:16 AM by Angie Mcclellan documented in this encounter Plan of Treatment Not on filedocumented as of this encounter Visit Diagnoses Not on filedocumented in this encounter Care Teams Book Sewing Machine Operator Relationship Specialty Start Date End Date Preet Huff PCP - General 06/24/11 documented as of this encounter
--- OUTSIDE RECORDS SUMMARY | 2022-09-01 20:13 | XMS_ITS | Encounter Summary ---
:1965 Author Organization [facility] Address [address] [facility] [place] [address] Care Team Providers Name Role Phone Preet Huff Primary Care Provider Reason for Referral Diagnostic Imaging Ultrasound - Closed Specialty Diagnoses / Procedures Referred By Contact Refer red To Contact Radiology. Diagnoses Non-healing wound of lower extremity Jaxon Saravia Sh Ultrasound Procedures US Intraoperative [address] [place] [address] [place] [id number] Referral ID Status Reason Start Date Expiration Date Visits Requ ested Visits Authorized [id number] Closed 12/14/2017 12/14/2018 1 1 RANCE CLAIMS ADJUSTER Reason for Visit Auth/Cert Specialty Diagnoses / Procedures Referred By Contact Refer red To Contact Surgery Diagnoses NON HEALING LEFT LATERAL HEEL ULCER WITH PAIN Sh Perio p Services Procedures REVISION FISTULA ARTERIOVENOUS LOWER EXTREMITY [address] [place] [address] Phone: Referral ID Status Reason Start Date Expiration Date Visits Requ ested Visits Authorized [id number] 1 1 Encounter Details Date Type Department Care Team Description 12/16/2017 Hospital Encounter [facility] Jaxon Saravia No n-healing wound of [place] [facility] MD Preet lower extremity [address] [address] [place] [address] [phone] Social History Tobacco Use Types Packs/Day Years [...] atorvastatin (LIPITOR) 20 Take 1 tablet (20 30 tablet 3 09/2018 MG tabletIndications: mg) by mouth every Mixed hyperlipidemia evening BISACODYL PO Take 10 mg by mouth 0 four times a week (Takes 2 x 5mg tablet = 10mg dose) Tuesday, Tuesday, Tuesday, and Tuesday Calcium Acetate, Phos Take 1,334 mg by 0 Binder, (CALCIUM ACETATE mouth 3 times daily PO) (with meals) Takes with meals (2 x 667mg tablet) Cholecalciferol (VITAMIN Take 2,000 Units by 0 D3 PO) mouth every evening LISINOPRIL PO Take 40 mg by mouth 0 daily (Takes 2 x 20mg tablet = 40mg ) METOPROLOL TARTRATE PO Take 100 mg by mouth 0 2 times daily Take on , on Non-dialysis days oxyCODONE IR (ROXICODONE) Take 1-2 tablets 30 tablet 0 12/08 5 MG tabletIndications: (5-10 mg) by mouth Post-op pain every 4 hours as needed for other (pain control or improvement in physical function. Hold dose for analgesic side effects.) warfarin (COUMADIN) 4 MG Take 1 tablet (4 mg) 30 tablet 1 0 12/19/2017 tabletIndications: by mouth daily Problem with dialysis access, subsequent encounter acetaminophen-codeine Take 1-2 tablets by 20 tablet 0 12/1312/19/2017 (TYLENOL #3) 300-30 MG mouth every 4 hours per tabletIndications: as needed for pain Pain, PAD (peripheral maximum 12 tablet(s) artery disease) (H) per day ATORVASTATIN CALCIUM PO Take 20 mg by mouth 0 01/23/2018 every evening B Isrdpri-K-Hvtfz Acid Take 1 mg by mouth 0 01/23/2018 (HARRIS CAPS PO) every evening senna-docusate Take 1 tablet by 30 tablet 3 12/19/201701/08 (SENOKOT-S;PERICOLACE) mouth 2 times daily 8.6-50 MG per tabletIndications: Drug-induced constipation WARFARIN SODIUM PO Take 5 mg by mouth 0 12/19/2017 every evening documented as of this encounter Plan of Treatment Not on filedocumented as of this encounter Procedures Procedure Name Priority Date/Time Associated Diagnosis Comme nts US INTRAOPERATIVE Routine 12/16/2017 12:00 PM Non-healing woun d of Results for this INSURANCE CLAIMS ADJUSTER lower extremity procedure ar e in the results section. documented in this encounter Results US Intraoperative (12/16/2017 12:00 PM INSURANCE CLAIMS ADJUSTER) Anatomical Region Laterality Modality Abdomen/Pelvis Ultrasound Specimen (Source) Anatomical Location Collection Method / Collectio n Time Received Time / Laterality Volume Impressions 12/16/2017 5:50 PM INSURANCE CLAIMS ADJUSTER IMPRESSION: Intraoperative ultrasound evaluation. PATRICIA OLMSTEAD MD Narrative 12/16/2017 5:50 PM INSURANCE CLAIMS ADJUSTER ULTRASOUND INTRAOPERATIVE 12/16/2017 12:00 PM HISTORY: 52-year-old with intraoperative ultrasound evaluation of the fistula. TECHNIQUE: Color Doppler and spectral wa veform analysis obtained within the fistula before and after band ing. Prebanding outflow volume is 1754 cc/minute and postbanding outflo w volume is 629 cc/minute. Procedure Note Patricia Olmstead MD - 12/16/2017 ULTRASOUND INTRAOPERATIVE 12/16/2017 12:00 PM HISTORY: 52-year-old with intraoperative ultrasound evaluation of the fistula. TECHNIQUE: Color Doppler and spectral wa veform analysis obtained within the fistula before and after band ing. Prebanding outflow volume is 1754 cc/minute and postbanding outflo w volume is 629 cc/minute. IMPRESSION: Intraoperative ultrasound ev aluation. PATRICIA OLMSTEAD MD Jaxon Saravia MD IMG US ORDERABLES documented in this encounter Visit Diagnoses Diagnosis Non-healing wound of lower extremity documented in this encounter Care Teams Sheet Writer Relationship Specialty Start Date End Date Preet Huff PCP - General 06/24/11 documented as of this encounter
--- OUTSIDE RECORDS SUMMARY | 2022-09-01 20:13 | XMS_ITS | Encounter Summary ---
:1965 Author Organization [facility] Address [address] [place] [address] Care Team Providers Name Role Phone Preet Huff Primary Care Provider Reason for Visit Auth/Cert Specialty Diagnoses / Procedures Referred By Contact Refer red To Contact Surgery Diagnoses NON HEALING LEFT LATERAL HEEL ULCER WITH PAIN Sh Perio p Services Procedures REVISION FISTULA ARTERIOVENOUS LOWER EXTREMITY [address] [place] [address] Phone: Referral ID Status Reason Start Date Expiration Date Visits Requ ested Visits Authorized [id number] 1 1 Encounter Details Date Type Department Care Team Description 12/16/2017 Anesthesia Event M [facility] Justin Gonzales MD Services [facility] [address], [address] ANESTHES IOLOGY [facility] [address] [place] [address] [place] [address] [phone] (Wo rk) Anesthesia Record Procedure Summary Procedure Name Responsible Anesthesia Start Anesthesia Stop Anesthesiologist Time Time LEFT THIGH ABF Justin Gonzales, 12/16/17 1036 8 1231 FISTMD TIANA ANGIOPLASTY OF OUTFLOW VENOUS STENOSIS, BANDING LEFT ABF, IRRIGATION AND DEBRIDEMENT LEFT FOOT ULCER (C-ARM) (Left: Leg) Events Date Time Event Comment 12/16/2017 1020 1036 An Start 1036 An Start Data 1040 An Induction 1043 An LMA 1045 AN START SEVO 1057 AN INCISION 1108 MD Present 1123 MD Present 1211 AN END SEVO 1225 LMA Removed 1226 an stop data 1231 An Stop Electronically s igned by Ryann Domingo on December 16, 2017 12:31 PM Name Total ePHEDrine 5 mg/mL 25 mg fentaNYL (SUBLIMAZE) injection 200 mcg lidocaine 2% 100 mg ondansetron 2mg/mL 4 mg phenylephrine (REX-SYNEPHRINE) injection 1 mg 100 mcg propofol (DIPRIVAN) injection 10 mg/mL vial 190 mg ceFAZolin (ANCEF) intermittent infusion 2 g in 100 mL dextrose PRE-MIX 2 g phytonadione (AQUA-MEPHYTON) 10 mg in sodium chloride 0.9 % 50 mL 10 mg intermittent infusion sodium chloride 0.9% infusion 250 mL Agents Name NO HELIOX O2 N2O Air Exp Sevoflurane Exp Isoflurane Exp Desflurane Exp N2O O2 Delivery Device Ins Sevoflurane Ins Isoflurane Ins Desflurane O2 Auxiliary Blood No blood administrations on file. Lines, Drains, and Airways Type Details Placement Removal Hemodialysis Vascular Arteriovenous fistula; 05/08/14 1016 by Access Left; Femoral vein Negative Pressure Wound 12/16/17; 1217; Dr 12/16/17 1217 by Therapy [facility]; Foot (heel); Platon, Macie Left LINDA Wood Peripheral IV 04/25/17; 0945; 20 G; 04/25/17 0945 by 01/24/18 1859 by Right; Accessory Yasemin Solis RN Mohamed, Ha lly L, cephalic; RN Chlorhexidine; Tolerated well Peripheral IV 12/07/17; 1301; 22 G; 12/07/17 1301 by 08/09/18 1555 by Right; Accessory Isis Lindsay Edwards, Je nnifer cephalic RN A Left Groin Interventional (actually left leg 12/07/17 1700 by 0 02/11/22 1434 by Procedure Access fistula); 12/07/17; Yasemin Solis RN [facility], Nurse 1700; 02/11/22; 1434 Peripheral IV 12/16/17; 1020; 20 G; 12/16/17 1020 by 12/19/17 1700 by Right; Hand; Dinora Andino, Alvarez Lizarraga, Chlorhexidine, Alcohol; RN RN Tolerated well Retired Non-Surgical 12/16/17; 1043; Easy; 12/16/17 1043 by 03/0 06/27 1225 by Airway Intravenous; 5; Ryann Domingo Kelly laryngeal mask airway; JUDITH Mcgrath CRNA, APRN CRNA PACK WORKER SUPERVISOR; KP; Spontaneous ventilation, Adequate tidal volume, Follows commands, Transported with oxygen, Purposeful movement Incision/Surgical Site 12/16/17; 1221; Left; 12/16/17 1221 by 0000 by Leg; inner thigh; Macie Amin Amy J, RN 02/11/22 (not present LINDA Wood this admission, healed) documented in this encounter Social History Tobacco Use Types Packs/Day Years Used Date Smoking Tobacco: Never Smokeless Tobacco: Never Alcohol Use Standard Drinks/Week Comments No 0 (1 standard drink = 0.6 oz pure alcoho l) Sex Assigned at Date Recorded Not on file documented as of this encounter OR Notes Anesthesia Postprocedure Evaluation - Justin Gonzales MD - 12/16/2017 1:32 PM CST Patient: Herminio Victor Procedure(s): LEFT THIGH ABF FISTOGRAM, ANGIOPLASTY OF OUTFLOW VENOUS STENOSIS, BANDING LEFT ABF, IRRIGATION AND DEBRIDEMENT LEFT FOOT ULCER (C-ARM) - Wound Class: I-Clean - Wound Class: II-Clean Contaminated Diagnosis:NON HEALING LEFT LATERAL HEEL ULCER WITH PAIN Diagnosis Additional Information: No value filed. Anesthesia Type: General, LMA Note: Anesthesia Post Evaluation Patient location during evaluation: PACU Patient participation: Able to fully participate in evaluation Level of consciousness: awake and alert Pain management: satisfactory to patient Airway patency: patent Cardiovascular status: hemodynamically stable Respiratory status: acceptable and unassisted Hydration status: balanced PONV: none Anesthetic complications: None Last vitals: Vitals: 12/16/17 1300 12/16/17 1310 12/16/17 1320 BP: 138/72 138/71 135/73 Pulse: Resp: 14 8 14 Temp: 36.4 ??C (97.5 ??F) SpO2: 100% 100% 100% Electronically Signed By: Justin Gonzales MD December 16, 2017 1:32 PM ORMANCE TEST ENGINEER Anesthesia Preprocedure Evaluation - Justin Gonzales MD - 12/16/2017 10:18 AM CST Anesthesia Evaluation . Pt has had prior anesthetic. Type: General and MAC No history of anesthetic complications ROS/MED HX ENT/Pulmonary: (+)sleep apnea, uses CPAP , . . (-) tobacco use Neurologic: Cardiovascular: (+) Dyslipidemia, hypertension----. Taking blood thinners : . . fainting (syncope). :. . METS/Exercise Tolerance: Hematologic: (+) History of blood clots Anemia, History of Transfusion - Musculoskeletal: Comment: Legally blind GI/Hepatic: (-) GERD Renal/Genitourinary: (+) chronic renal disease, type: ESRD, Pt requires dialysis, type: Hemodialysis, Pt has no history of transplant, Endo: (+) type II DM Not using insulin - not using insulin pump Diabetic complications: nephropathy neuropathy retinopathy, . Psychiatric: Infectious Disease: Malignancy: Other: Physical Exam Normal systems: cardiovascular and pulmonary Airway Mallampati: II TM distance: >3 FB Neck ROM: full Dental (+) lower dentures and upper dentures Cardiovascular Pulmonary Anesthesia Plan History & Physical Review History and physical reviewed and following examination; no interval change. ASA Status: 3 . NPO Status: > 8 hours Plan for General and LMA with Intravenous induction. Maintenance will be Balanced. PONV prophylaxis: Ondansetron (or other 5HT-3) Postoperative Care Postoperative pain management: IV analgesics. Consents Anesthetic plan, risks, benefits and alternatives discussed with: Patient or used equipment sales representative and Patient.. Procedure: Procedure(s): REVISION FISTULA ARTERIOVENOUS LOWER EXTREMITY COMBINED IRRIGATION AND DEBRIDEMENT FOOT Preop diagnosis: NON HEALING LEFT LATERAL HEEL ULCER WITH PAIN Allergies Allergen Reactions ??? Aspirin [Dihydroxyaluminum Aminoacetate] GI Disturbance GI bleeding Past Medical History: Diagnosis Date ??? A-V fistula (H) left forearm ??? Anemia ??? Anemia ??? Blind ??? Chronic in-center hemodialysis status (H) ??? Cognitive deficits ??? Diabetes mellitus (H) ??? DVT (deep venous thrombosis) (H) ??? ESRD (end stage renal disease) (H) dialysis T--Tue ??? History of staph septicemia 12/20/2015 ??? Hyperkalemia ??? Hyperlipemia ??? Hyperlipidaemia ??? Hypertension ??? Hypertension ??? Kidney disease ??? Kidney disease ??? Orthostasis ??? Retinopathy ??? Sleep apnea CPAP ??? Syncope Past Surgical History: Procedure Laterality Date ??? [...] Surgeon: Rober Saravia MD; Location: [facility] OR Prior to Admission medications Medication Sig Start Date End Date Taking? Authorizing Provider BISACODYL PO Take 10 mg by mouth four times a week (Takes 2 x 5mg tablet = 10mg dose) Yes Reported, Patient ATORVASTATIN CALCIUM PO Take 20 mg by mouth every evening Yes Reported, Patient B Kamvhnn-H-Aydru Acid (HARRIS CAPS PO) Take 1 mg by mouth every evening Yes Reported, Patient acetaminophen-codeine (TYLENOL #3) 300-30 MG per tablet Take 1-2 tablets by mouth every 4 hours as needed for pain maximum 12 tablet(s) per day 12/13/17 Yes Rober Saravia MD AMLODIPINE BESYLATE PO Take 10 mg by mouth four times a week On Non dialysis days which is MWFSun Yes Unknown, Entered By History METOPROLOL TARTRATE PO Take 200 mg by mouth 2 times daily Take on MWFSun, on Non-dialysis days Yes Unknown, Entered By History Calcium Acetate, Phos Binder, (CALCIUM ACETATE PO) Take 1,334 mg by mouth 3 times daily (with meals)Takes with meals (2 x 667mg tablet) Yes Reported, Patient LISINOPRIL PO Take 40 mg by mouth daily (Takes 2 x 20mg tablet = 40mg ) Yes Reported, Patient Cholecalciferol (VITAMIN D3 PO) Take 2,000 Units by mouth every evening Yes Unknown, Entered By History WARFARIN SODIUM PO Take 5 mg by mouth every evening Unknown, Entered By History Current Facility-Administered Medications Ordered in [facility] Medication Dose Route Frequency Last Rate Last Dose ??? ceFAZolin (ANCEF) intermittent infusion 2 g in 100 mL dextrose PRE-MIX 2 g Intravenous Pre-Op/Pre-procedure x 1 dose ??? lidocaine 1 % 1 mL 1 mL Other Q1H PRN ??? sodium chloride 0.9% infusion Intravenous Continuous ??? phytonadione (AQUA-MEPHYTON) 10 mg in sodium chloride 0.9 % 50 mL intermittent infusion 10 mg Intravenous Once ??? fentaNYL (SUBLIMAZE) 0.05 MG/ML injection ??? heparin 100 UNIT/ML Lock Flush SOLN No current [facility]-ordered outpatient prescriptions on file. Wt Readings from Last 1 Encounters: 12/16/17 88.5 kg (195 lb) Temp Readings from Last 1 Encounters: 12/16/17 36.1 ??C (97 ??F) (Temporal) BP Readings from Last 6 Encounters: 12/16/17 144/69 12/07/17 159/75 07/25/17 169/83 04/25/17 135/59 01/06/17 138/61 09/17/16 159/63 Pulse Readings from Last 4 Encounters: 12/16/17 67 12/07/17 67 07/25/17 60 04/25/17 59 Resp Readings from Last 1 Encounters: 12/07/17 16 SpO2 Readings from Last 1 Encounters: 12/16/17 100% Recent Labs Lab Test 12/16/17 0925 12/07/17 1234 03/06/16 0723 NA 129* -- 134 POTASSIUM 4.9 -- 4.0 CHLORIDE 88* -- 98 CO2 25 -- 24 ANIONGAP 16* -- 12 GLC 87 -- 106* BUN 90* -- 51* CR 15.00* 10.20* 11.00* JON 9.3 -- 8.3* Recent Labs Lab Test 12/07/17 1234 03/06/16 0723 WBC 5.8 7.1 HGB 9.9* 10.8* PLT 181 110* Recent Labs Lab Test 12/16/17 0925 12/07/17 1234 INR 6.98* 3.04* RECENT LABS: ECG: ECHO: CXR: . ORMANCE TEST ENGINEER documented in this encounter Miscellaneous Notes Anesthesia Care Transfer Note - Ryann Domingo APRN PACK WORKER SUPERVISOR - 12/16/2017 12:30 PM CST Patient: Herminio Victor Procedure(s): LEFT THIGH ABF FISTOGRAM, ANGIOPLASTY OF OUTFLOW VENOUS STENOSIS, BANDING LEFT ABF, IRRIGATION AND DEBRIDEMENT LEFT FOOT ULCER (C-ARM) - Wound Class: I-Clean - Wound Class: II-Clean Contaminated Diagnosis: NON HEALING LEFT LATERAL HEEL ULCER WITH PAIN Diagnosis Additional Information: No value filed. Anesthesia Type: General, LMA Note: Airway :Face Mask Patient transferred to:PACU Comments: At end of procedure, spontaneous respirations, adequate tidal volumes, followed commands to voice, LMA removed atraumatically, oropharynx suctioned. Oxygen via facemask at 8 liters per minuteto PACU. Oxygen tubing connected to wall O2 in PACU, SpO2, NiBP, and EKG monitors and alarms on and functioning, Eliezer Hugger warmer connected to patient gown, report on patient's clinical status given to MANUFACTURING PROCESS ENGINEER.Handoff Report: Identifed the Patient, Identified the Reponsible Provider, Reviewed the pertinent medical history, Discussed the surgical course, Reviewed Intra-OP anesthesia mangement and issues during anesthesia, Set expectations for post-procedure period and Allowed opportunity for questions and acknowledgement of understanding Vitals: (Last set prior to Anesthesia Care Transfer) JAMARCUS VITALS 12/16/2017 1156 - 12/16/2017 1230 12/16/2017 Pulse: 73 Ht Rate: 72 SpO2: 100 % Resp Rate (observed): 14 Electronically Signed By: Ryann Domingo APRN CRNA December 16, 2017 12:30 PM ORMANCE TEST ENGINEER documented in this encounter Plan of Treatment Not on filedocumented as of this encounter Visit Diagnoses Not on filedocumented in this encounter Administered Medications Inactive Administered Medications - up to 3 most recent administrations Medication Order MAR Action Action Date Dose Rate Site ceFAZolin (ANCEF) intermittent Given 12/16/2017 10:45 AM PERFORMANCE TEST ENGINEER 2 g infusion 2 g in 100 mL dextrose PRE-MIX Routine, 2 g, Intravenous, PRE-OP/PRE-PROCEDURE, Starting on Tue12/16/17 at 0914, For 1 dose, Give first dose within 1 hour PRIOR to incision. If patient weight is greater than or equal to 120 kg increase dose to 3 g., Indications: Perioperative Pharmacoprophylaxis, Pre-procedure ePHEDrine injection Given 12/16/2017 11:41 AM PERFORMANCE TEST ENGINEER 5 mg PRN, Starting on Tue12/16/17 at 1114, Anesthesia Intra-op Given 12/16/2017 11:36 AM PERFORMANCE TEST ENGINEER 5 mg Given 12/16/2017 11:25 AM PERFORMANCE TEST ENGINEER 5 mg fentaNYL (PF) (SUBLIMAZE) injection Given 12/16/2017 11:50 AM PERFORMANCE TEST ENGINEER 50 mcg PRN, moderate to severe pain, Administer over 3-5 Minutes, Starting on Tue12/16/17 at 1040, Anesthesia Intra-op Given 12/16/2017 11:08 AM PERFORMANCE TEST ENGINEER 50 mcg Given 12/16/2017 10:56 AM PERFORMANCE TEST ENGINEER 50 mcg lidocaine injection 2% (MDV) Given 12/16/2017 10:40 AM PERFORMANCE TEST ENGINEER 100 mg PRN, Starting on Tue12/16/17 at 1040, Anesthesia Intra-op ondansetron (ZOFRAN) injection Given 12/16/2017 11:50 AM PERFORMANCE TEST ENGINEER 4 mg PRN, nausea, vomiting, Administer over 2-5 Minutes, Starting on Tue12/16/17 at 1150, Anesthesia Intra-op phenylephrine (REX-SYNEPHRINE) injection 1 Bolus 12/16/2017 11:01 AM PERFORMANCE TEST ENGINEER 50 mcg mg 1 mg, CONTINUOUS PRN, Starting on Tue12/16/17 at 1059, Anesthesia Intra-op New Bag 12/16/2017 10:59 AM PERFORMANCE TEST ENGINEER 50 mcg phytonadione (AQUA-MEPHYTON) 10 mg in New Bag 12/16/2017 10:56 AM PERFORMANCE TEST ENGINEER 10 mg sodium chloride 0.9 % 50 mL intermittent infusion 10 mg, Intravenous, Administer over 30 Minutes, at 100 mL/hr, ONCE, On Tue12/16/17 at 1015, For 1 dose, Please tube to main preop Protect from light. propofol (DIPRIVAN) injection 10 mg/mL v ial Given 12/16/2017 11:08 AM PERFORMANCE TEST ENGINEER 40 mg PRN, Starting on Tue12/16/17 at 1041, Anesthesia Intra-op Given 12/16/2017 10:41 AM PERFORMANCE TEST ENGINEER 150 mg sodium chloride 0.9% infusion New Bag 12/16/2017 10:36 AM PERFORMANCE TEST ENGINEER at 10 mL/hr, Intravenous, CONTINUOUS, IF patient on dialysis., Pre-procedure, Starting on Tue12/16/17 at 0915, Until Tue12/16/17 at 1403 documented in this encounter Care Teams Topographical Surveyor Relationship Specialty Start Date End Date Preet Huff PCP - General 06/24/11 documented as of this encounter
--- OUTSIDE RECORDS SUMMARY | 2022-09-01 20:13 | XMS_ITS | Encounter Summary ---
:1965 Author Organization [facility] Address [address] [facility] [place] [address] Care Team Providers Name Role Phone Preet Huff Primary Care Provider Reason for Visit Reason Onset Date Comments Nurse Advice Line 01/23/2018 Omlie - foul order a nd yip heel wound after psychometric examiner visit Encounter Details Date Type Department Care Team Description 01/23/2018 Telephone [facility] Jaxon Saravia Nurse Ad vice Line [facility] [place] MD (Omlie - foul order and [address] gr ay heel wound after [address] psychometric examiner visit) [place] [address] [place] [id number] (Wo rk) Social History Tobacco Use Types Packs/Day Years Used Date Smoking Tobacco: Never Smokeless Tobacco: Never Alcohol Use Standard Drinks/Week Comments No 0 (1 standard drink = 0.6 oz pure alcoho l) Sex Assigned at Date Recorded Not on file documented as of this encounter Miscellaneous Notes Telephone Encounter - Janell Edgar RN - 01/23/2018 4:27 PM CDT Pt hx of left thigh procol dialysis graft and left lateral heel ulcer. I called and spoke to Thelma who notes home care nurse comes out M-- to change pts left heel ulcerdressings, reconfirmed foul odor and yip colored. Thelma notes they are bringing pt into ER, her brother will be there at 5pm and they will take pt to ER in [place]. I explained this would be best for pt to be assessed for any infection and to be treated enrique. Thelma notes understanding and will keep us posted. LUIS LoveN, RN Telephone Encounter - Angie Mcclellan - 01/23/2018 3:33 PM CDT Thelma called, at the women's health care nurse practitioner visit, Herminio's heel wound was yip and had a foul odor to it. Shewants to get this message to Dr Saravia and someone to call and please tell her what to do . Routing to [facility] RN Surg Triage. Angie Mcclellan - Salon Customer Experience Specialist at [facility] documented in this encounter Plan of Treatment Not on filedocumented as of this encounter Visit Diagnoses Not on filedocumented in this encounter Care Teams Cyber Analyst Relationship Specialty Start Date End Date Preet Huff PCP - General 06/24/11 documented as of this encounter
--- OUTSIDE RECORDS SUMMARY | 2022-09-01 20:13 | XMS_ITS | Encounter Summary ---
:1965 Author Organization [place] Address [address] [place] [address] Care Team Providers Name Role Phone Preet Huff Primary Care Provider Reason for Visit Reason Onset Date Comments Refill Request 12/13/2017 Encounter Details Date Type Department Care Team Description 12/13/2017 Refill [facility] Vascular Jaxon Saravia, Refill Request Clinic [place] [facility] [address] [place] [address] [place] [address] [phone] (Wo rk) Social History Tobacco Use Types Packs/Day Years Used Date Smoking Tobacco: Never Smokeless Tobacco: Never Alcohol Use Standard Drinks/Week Comments No 0 (1 standard drink = 0.6 oz pure alcoho l) Sex Assigned at Date Recorded Not on file documented as of this encounter Miscellaneous Notes Telephone Encounter - Mona Vang RN - 12/13/2017 1:21 PM CST Signed script faxed to [facility]. Verified via RightFax. SUSHIL Vargas, RN TERMINAL GAUGER Telephone Encounter - Mona Vang RN - 12/13/2017 12:28 PM CST Pt's Aunt Thelma called stating pt is having foot pain and is having minimal relief taking Tylenol every [address]. [address] Saravia, Tylenol 3 ok to be prescribed. Med and pharmacy ([facility]) loaded and routed to Dr. Sraavia for signature. SUSHIL Vargas, RN TERMINAL GAUGER documented in this encounter Plan of Treatment Not on filedocumented as of this encounter Visit Diagnoses Diagnosis Pain - Primary Generalized pain PAD (peripheral artery disease) (H) Unspecified disorders of arteries and ar terioles documented in this encounter Care Teams Mainframe Programmer Analyst Relationship Specialty Start Date End Date Preet Huff PCP - General 06/24/11 documented as of this encounter
--- OUTSIDE RECORDS SUMMARY | 2022-09-01 20:13 | XMS_ITS | Encounter Summary ---
:1965 Author Organization [place] Address [address] [facility] [place] [address] Care Team Providers Name Role Phone Preet Huff Primary Care Provider Reason for Visit Auth/Cert Specialty Diagnoses / Procedures Referred By Contact Refer red To Contact Surgery Diagnoses NON HEALING LEFT LATERAL HEEL ULCER WITH PAIN Sh Perio p Services Procedures REVISION FISTULA ARTERIOVENOUS LOWER EXTREMITY [address], [address] [place] [id number] Phone: Referral ID Status Reason Start Date Expiration Date Visits Requ ested Visits Authorized [id number] 1 1 Encounter Details Date Type Department Care Team Description 12/16/2017 Surgery [facility] Rani Rober LEFT THI GH ABF Ariane Oviedo MD FISTOGRAM, ANGIOPLASTY Services [address] OF OUTFLOW VENOUS [address], [address] STENOSIS, BANDING LEFT [address]2 [place] [address] ABF, IRRIGATION AND [place] [id number] DEBRIDEMENT LEFT FOOT [phone] ULCER (C- ARM) Surgery Details Date/Time Status Location OR Service Patient Case Class Case Tr auma Class Type Case? 12/16/17 10:25 Posted OR OR [facility] Same Day Outpatient in AM 41 Surgery Bed Panel 1 Procedure LRB Anes Op Region Wound Class Commen ts LEFT THIGH ABF Left General Leg I-Clean LEFT THIGH ABF FISTOGRAM, FISTOGRAM, ANGIOPLASTY OF ANGIOPLAST Y OF OUTFLOW VENOUS OUTFLOW VE NOUS STENOSIS, BANDING STENOSI S, BANDING LEFT ABF, IRRIGATION LEFT ABF, IRRIGATION AND DEBRIDEMENT LEFT AND DEBRIDEMENT LEFT FOOT ULCER (C-ARM) FOOT U LCER (C-ARM) IRRIGATION AND Left General Leg II-Clean Contaminated DEBRIDEMENT, FOOT Surgeon Surgeon Role Service Panel Rober Saravia MD Primary General 1 documented in this encounter Social History Tobacco Use Types Packs/Day Years Used Date Smoking Tobacco: Never Smokeless Tobacco: Never Alcohol Use Standard Drinks/Week Comments No 0 (1 standard drink = 0.6 oz pure alcoho l) Sex Assigned at Date Recorded Not on file documented as of this encounter Last Filed Vital Signs Vital Sign Reading Time Taken Comments Blood Pressure 144/69 12/16/2017 9:35 AM HVAC PROJECT MANAGER Pulse 67 12/16/2017 9:35 AM HVAC PROJECT MANAGER Temperature 36.1 ??C (97 ??F) 12/16/2017 9:35 AM HVAC PROJECT MANAGER Respiratory Rate - - Oxygen Saturation 100% 12/16/2017 9:35 AM HVAC PROJECT MANAGER Inhaled Oxygen Concentration - - Weight 88.5 kg (195 lb) 12/16/2017 9:35 AM HVAC PROJECT MANAGER Height 170.2 cm (5' 7) 12/16/2017 9:35 AM HVAC PROJECT MANAGER Body Mass Index 31.25 12/16/2017 9:35 AM HVAC PROJECT MANAGER documented in this encounter Discharge Summaries Rober Saravia MD - 12/19/2017 4:32 PM CDT [facility] Vascular Surgery Discharge Summary Date of Admission: 12/16/2017 Date of Discharge: 12/19/2017 Admission Diagnosis: 1. Left heel ulcer 2. Left lower extremity steal syndrome due to AV-graft Past Medical History: Diagnosis Date ??? A-V fistula (H) left forearm ??? Anemia ??? Anemia ??? Blind ??? Chronic in-center hemodialysis status (H) ??? Cognitive deficits ??? Diabetes mellitus (H) ??? DVT (deep venous thrombosis) (H) ??? ESRD (end stage renal disease) (H) dialysis T-TH-Sat ??? History of staph septicemia 12/20/2015 ??? Hyperkalemia ??? Hyperlipemia ??? Hyperlipidaemia ??? Hypertension ??? Hypertension ??? Kidney disease ??? Kidney disease ??? Orthostasis ??? Retinopathy ??? Sleep apnea CPAP ??? Syncope Discharge Diagnosis: 1. Left heel ulcer 2. Left lower extremity steal syndrome due to AV-graft Past Medical History: Diagnosis Date ??? A-V [...] Retinopathy ??? Sleep apnea CPAP ??? Syncope Consultations: Nephrology, Vascular Medicine Procedures: 12/16/17 1. Operative fistulogram of left thigh ProCol dialysis graft. Angioplasty of outflow venous stenosis(8 x 40 mm Fords balloon). 2. Banding of inflow portion of left thigh ProCol dialysis graft. 3. Full-thickness/subcutaneous excisional debridement, left lateral heel ulcer (5.5 x 3.5 x 3 cm). Application of negative pressure dressing. ?by Dr Rober Saravia Brief HPI: A 52-year-old patient who is on chronic hemodialysis. He has had multiple access challenges and has a patent left zjeep-lvk-mlap popliteal to proximal thigh superficial femoral vein ProCol dialysis graft. He has had a history of venous outflow stenosis which have been angioplastied in the past but notfor the last 3 months. He has now developed a heel ulcer that has failed to respond to conservative treatment. Recent angiogram via the fistula revealed only 1-vessel runoff being the anterior tibial-dorsalis pedis artery of the foot. Posterior tibial artery could not be recanalized. We felt that the heel ulcer is caused by steal syndrome from the thigh graft and the patient presented for a banding of the AV-graft. ? Hospital Course: The patient was admitted and underwent the above procedure. The patient tolerated the procedure well. There were no complications. He underwent dialysis after surgery and also worked with physical therapy On POD 3 his wound vac was taken down. The wound bed has bleeding and viable tissue. New wound vac was placed and the wound dimension was 5.5 cm x 3.5 cm x 3 cm deep. The patient was discharged homeon POD 3 to home with home health. Discharge Physical Exam: General: Awake, alert and answers questions appropriately HEENT: NC, AT Respiratory: not in respiratory distress Abdomen: soft, non-tender Ext: Left thigh incision with dressing in place, no sign of bleeding. Left heel has wound vac in place, putting out scant serosanguinous fluid Pulsees: Dopplerable biphasic DP on the left Meds: Review of your medicines START taking Dose / Directions oxyCODONE IR 5 MG tablet Commonly known as: ROXICODONE Used for: Post-op pain Dose: 5-10 mg Take 1-2 tablets (5-10 mg) by mouth every 4 hours as needed for other (pain control or improvement in physical function. Hold dose for analgesic side effects.) Quantity: 30 tablet Refills: 0 senna-docusate 8.6-50 MG per tablet Commonly known as: SENOKOT-S;PERICOLACE Used for: Drug-induced constipation Dose: 1 tablet Take 1 tablet by mouth 2 times daily Quantity: 30 tablet Refills: 3 CONTINUE these medicines which may have CHANGED, or have new prescriptions. If we are uncertain of the size of tablets/capsules you have at home, strength may be listed as something that might have changed. Dose / Directions * ATORVASTATIN CALCIUM PO This may have changed: Another medication with the same name was added. Make sure you understand howand when to take each. Dose: 20 mg Take 20 mg by mouth every evening Refills: 0 * atorvastatin 20 MG tablet Commonly known as: LIPITOR This may have changed: You were already taking a medication with the same name, and this prescription was added. Make sure you understand how and when to take each. Used for: Mixed hyperlipidemia Notes to Patient: Duplicate entry, see above Dose: 20 mg Take 1 tablet (20 mg) by mouth every evening Quantity: 30 tablet Refills: 3 warfarin 4 MG tablet Commonly known as: COUMADIN This may have changed: - medication strength - how much to take - when to take this Used for: Problem with dialysis access, subsequent encounter Dose: 4 mg Take 1 tablet (4 mg) by mouth daily Quantity: 30 tablet Refills: 1 * Notice: This list has 2 medication(s) that are the same as other medications prescribed for you. Read the directions carefully, and ask your doctor or other care provider to review them with you. CONTINUE these medicines which have NOT CHANGED Dose / Directions AMLODIPINE BESYLATE PO Dose: 10 mg Take 10 mg by mouth four times a week On Non dialysis days which is MW Refills: 0 BISACODYL PO Notes to Patient: Resume as normal Dose: 10 mg Take 10 mg by mouth four times a week (Takes 2 x 5mg tablet = 10mg dose) Refills: 0 CALCIUM ACETATE PO Dose: 1334 mg Take 1,334 mg by mouth 3 times daily (with meals) Takes with meals (2 x 667mg tablet) Refills: 0 LISINOPRIL PO Dose: 40 mg Take 40 mg by mouth daily (Takes 2 x 20mg tablet = 40mg ) Refills: 0 METOPROLOL TARTRATE PO Dose: 200 mg Take 200 mg by mouth 2 times daily Take on MW, on Non-dialysis days Refills: 0 HARRIS CAPS PO Dose: 1 mg Take 1 mg by mouth every evening Refills: 0 VITAMIN D3 PO Dose: 2000 Units Take 2,000 Units by mouth every evening Refills: 0 STOP taking acetaminophen-codeine 300-30 MG per tablet Commonly known as: TYLENOL #3 Where to get your medicines Some of these will need a paper prescription and others can be bought over the counter. Ask your nurse if you have questions. Bring a paper prescription for each of these medications ??? atorvastatin 20 MG tablet ??? oxyCODONE IR 5 MG tablet ??? senna-docusate 8.6-50 MG per tablet ??? warfarin 4 MG tablet Discharge Instructions: Home care nursing referral Home Care PT Referral for Hospital Discharge Reason for your hospital stay Left thigh AV-graft banding for steal syndrome and left heel debridement for heel ulcer Follow-up and recommended labs and tests Please follow up with Dr Saravia in two weeks in clinic. Activity Your activity upon discharge: Activity as tolerated with assist. No weight bearing on left heel. Toe touch on the left. Right foot is full weight bearing. Wound care and dressings Instructions to care for your wound at home: Wound vac change with silver sponge to left heel Tuesday, Tuesday and Tuesday. face to face encounter Documentation of Face to Face and Certification for Home Health Services I certify that patient: Julio Cesar Sandhu is under my care and that I, or a nurse practitioner or physician's family service assistant working with me, had a koyd-vx-bofx encounter that meets the physician heak-el-ucbz encounter requirements with this patient on: 12/19/2017. This encounter with the patient was in whole, or in part, for the following medical condition, whichis the primary reason for home health care: Left heel wound care and assistance with activity of daily living. I certify that, based on my findings, the following services are medically necessary home health services: Nursing and Physical Therapy. My clinical findings support the need for the above services because: Nurse is needed: For complex aftercare of surgical procedures because the patient needs instruction and cannot perform care on their own due to: Difficult location to reach and decreased mental ability. and Physical Therapy Servicesare needed to assess and treat the following functional impairments: Left heel wound requiring no heel touch and left toe touch only. Further, I certify that my clinical findings support that this patient is homebound (i.e. absences from home require considerable and taxing effort and are for medical reasons or holiness services or infrequently or of short duration when for other reasons) because: Leaving home is medically contraind icated for the following reason(s): Other physician ordered restriction: Impaired mental ability. Based on the above findings. I certify that this patient is confined to the home and needs intermittent senior living care, physical therapy and/or speech therapy. The patient is under my care, and Pamela initiated the establishment of the plan of care. This patient will be followed by a physician who will periodically review the plan of care. Physician/Provider to provide follow up care: Preet Huff Attending hospital physician (the Medicare certified [place] provider): Rober Saravia, * Physician Signature: See electronic signature associated with these discharge orders. Date: 12/19/2017 Discharge Equipment: Wound Vac Left heel wound dimension: 5.5 cm x 3.5 cm x 3 cm deep. Wound bed has pink, healthy tissue. Wound bed may bleed after removing wound vac sponge. Hold pressure until the oozing stops and then apply new wound vac dressing. Negative Pressure Wound Therapy to left heel wound with continuous suction at 125 mmHg. Cleanse wound with saline or wound cleanser. Dressing change 3 times per week. Change canister weekly and when full. Supplies: Silver sponge Teach pt/family how to remove dressing and apply wet to damp dressing, in the event that dressing leaks or machine malfunctions. Consult [facility] nurse. Follow-up in Dr Saravia's clinic in two weeks. Full Code Diet Follow this diet upon discharge: Orders Placed This Encounter Dialysis Diet Estrella (Rashad) MD [facility] Fellow (p) STAFF: Agree with above and plan for Julio Cesar Sandhu . [facility]AC change by [facility]. ? Able to arrange heel ulcer follow-up with local [employer] who was seeing patient prior to admission. Rober Saravia MD documented in this encounter Discharge Instructions Discharge InstructionsNola Lizarraga RN - 12/19/2017 3:34 PM CDT Going Home with A Wound Vac Usually your doctor, home health agency or wound care clinic trained in VAC therapy will change yourdressing. There are specific dressings that need to be used for your VAC dressing change. There are also specific settings that need to be set on the machine at discharge. When you are discharged, make sure you bring along the box that has been left in your room from the [facility] guest service representative. (You need to leave with a portable VAC machine, not the hospital???s.) Dressings will be changed according to what your MD has ordered. It is usually 3 times/week or as needed. You should not shower ( or get dressing wet) unless this has been approved by your MD. Keep the machine plugged in as much as possible to prevent having to recharge a full 12 hours. Thebattery may run for about 12 hours. At home: If there is a problem and the machine registers ???air leak?? , it usually means the dressing is loose. You may try to patch the dressing with new Tegaderm or clear KCI drape. If this does not work, and Home Care is following the patient, call the Home Care nurse. If the machine malfunctions, read the manual and/or call [facility] at # How to Change the Canister on the Wound VAC 1. Close white clamp on foam dressing tube. 2. Disconnect tubes from each other - hold canister tube up to allow drainage to flow down tube and into canister. Close clamp on canister tube. 3. Press therapy button to off. 4. Push in canister release button at front of machine and remove canister from machine. You may need to jiggle it out. 5. Insert a new canister into machine. Jiggle into place until you hear a click. 6. Hook tubes together, unclamp clamps. 7. Press therapy button; press therapy ???on?? to restart. If you have any serious bleeding, feel faint or feel dizzy, turn off the machine and call 911. You may also need to call your MD for a fever over 102, increase in redness, swelling, bleeding, bad swell, increase in pain warmth around dressing site. If you have a question or problem with the bandage call your MD, home care nurse or wound care center. If your machine isn???t working right and the alarms keep going off: Read about ???alarms?? in your manual and/or call [facility] at . Follow up Appointment: Doctor's Phone Number: documented in this encounter Medications at Time [...] mouth 0 2 times daily Take on MWFSun, on [...] daily Problem with dialysis access, subsequent encounter ATORVASTATIN CALCIUM PO Take 20 mg by mouth 0 01/23/2018 every evening B Akkznet-P-Msyzz Acid Take 1 mg by mouth 0 01/23/2018 (HARRIS CAPS PO) every evening senna-docusate Take 1 tablet by 30 tablet 3 12/19/201701/08 (SENOKOT-S;PERICOLACE) mouth 2 times daily 8.6-50 MG per tabletIndications: Drug-induced constipation documented as of this encounter Progress Notes Anya Tapia LSW - 12/19/2017 3:46 PM CDT SW: Team determination that patient is safe to return home where he lives with his aunt who is also his COMMERCIAL INSTRUCTOR SUPERVISOR. RN, PT and WOC service referral sent to [facility] in [place], which patient has used inthe past. Aunt to transport at [place]. No other needs identified. SW avail should other [place] needs arise. Isis Stanley RN - 12/19/2017 3:30 PM CDT [facility] wound vac serial number [id number] delivered to patient and family in his room. Signed proof of delivery faxed to [facility] at . Anya Tapia LSW - 12/19/2017 2:55 PM CDT Care Transition Initial Assessment - SW ? Met with: Patient, Aunt Thelma and Uncle Chip. Active Problems: Foot ulcer, left (H) Steal syndrome of dialysis vascular access (H) DATA Lives With: aunt who Is also patient's COMMERCIAL INSTRUCTOR SUPERVISOR Living Arrangements: house with a ramp Description of Support System: Supportive, Involved. Patient lives with his aunt who is his COMMERCIAL INSTRUCTOR SUPERVISOR and also has the assist of another COMMERCIAL INSTRUCTOR SUPERVISOR at times as well as Thelma's 2 sons who also live with her can assist with heavy transfers and assist into house. Who is your support system?: COMMERCIAL INSTRUCTOR SUPERVISOR- Aunt Thelma Identified issues/concerns regarding health management: transferring and mobility ability post surgery ? Resources List: Home Care Quality Of Family Relationships: supportive, helpful, involved Transportation Available: family or friend will provide Thelma coordinates transport to and from dialysis. Patient has a Research Professional through [facility]- Anya [phone], fax: [phone] Patient has used [facility] out of [place] in the past and worked with RN Wild. ASSESSMENT Cognitive Status: awake, alert and unsure of orientation Concerns to be addressed: Whether physical needs can be met at home . Patient's aunt/COMMERCIAL INSTRUCTOR SUPERVISOR Thelma indicates she has been patient's COMMERCIAL INSTRUCTOR SUPERVISOR for many years and assists with all ADL's and IADL's including; dressing, grooming, bathing, meds, transfers, mobility, meals, transportation. ??PLAN Financial costs for the patient includes Medicare and M.A. Patient given options and choices for discharge TCU vs Home with 24 hour care . Patient/family is agreeable to the plan? Yes: Thelma feels she is able to provide for patient's needs. Patient Goals and Preferences: Home with 24 hr care and Wound Care services . Patient anticipates discharging to: Home . ? AKT Estrella Guillen MD - 12/19/2017 10:21 AM CDT Vascular Surgery Progress Note Assessment and Plan: Assessment: 52-year old man POD 3 s/p left thigh AV-graft banding, left heel debridement and wound vac placement. Wound dimension: 5.5 x 3.5 x 3 cm. He is stable and his pain is controlled. INR is 2.13 this morning. Plan: - Wound vac change at bedside with silver sponge. Next wound vac change on Tuesday. - INR is back to therapeutic range. Stop heparin drip. - PT/OT suggested TCU transfer. - Need outpatient portable wound vac. - Consulting social work supervisor for discharge planning. Interval History: Vital signs are stable. No acute event overnight. Wound vac changed at bedside. Wound bed is mostly healthy with bleeding tissue. Medications: Current Facility-Administered Medications Medication ??? heparin infusion 25,000 units in 0.45% NaCl 250 mL ??? labetalol (NORMODYNE/TRANDATE) injection 20 mg ??? hydrALAZINE (APRESOLINE) injection 10 mg ??? amLODIPine (NORVASC) tablet 10 mg ??? atorvastatin (LIPITOR) tablet 20 mg ??? bisacodyl (DULCOLAX) EC tablet 10 mg ??? calcium acetate (PHOSLO) capsule 1,334 mg ??? cholecalciferol (vitamin D3) tablet 2,000 Units ??? lisinopril (PRINIVIL/ZESTRIL) tablet 40 mg ??? lidocaine 1 % 1 mL ??? lidocaine (LMX4) cream ??? sodium chloride (PF) 0.9% PF flush 3 mL ??? sodium chloride (PF) 0.9% PF flush 3 mL ??? naloxone (NARCAN) injection 0.1-0.4 mg ??? Warfarin Therapy Reminder (Check START DATE - warfarin may be starting in the FUTURE) ??? acetaminophen (TYLENOL) tablet 975 mg ??? acetaminophen (TYLENOL) tablet 650 mg ??? oxyCODONE IR (ROXICODONE) tablet 5-10 mg ??? ondansetron (ZOFRAN-ODT) ODT tab 4 mg Or ??? ondansetron (ZOFRAN) injection 4 mg ??? senna-docusate (SENOKOT-S;PERICOLACE) 8.6-50 MG per tablet 1 tablet Or ??? senna-docusate (SENOKOT-S;PERICOLACE) 8.6-50 MG per tablet 2 tablet ??? metoprolol tartrate (LOPRESSOR) tablet 200 mg Facility-Administered Medications Ordered in Other Encounters Medication ??? heparin 100 UNIT/ML Lock Flush SOLN Physical Exam: Temp: 98.4 ??F (36.9 ??C) Temp src: Oral BP: 158/77 Pulse: 75 Heart Rate: 77 Resp: 16 SpO2: 98 % O2 Device: None (Room air) General: Awake, alert and answers questions appropriately HEENT: NC, AT Respiratory: not in respiratory distress Abdomen: soft, non-tender Ext: Left heel wound has viable bleeding tissue Pulsees: Dopplerable biphasic DP on the left Data: Lab Results Component Value Date WBC 5.5 12/18/2017 HGB 8.3 (L) 12/18/2017 HCT 26.7 (L) 12/18/2017 PLT 171 12/18/2017 NA 125 (L) 12/17/2017 POTASSIUM 5.1 12/17/2017 CHLORIDE 84 (L) 12/17/2017 CO2 21 12/17/2017 BUN 114 (H) 12/17/2017 CR 16.10 (H) 12/17/2017 GLC 100 (H) 12/17/2017 AST 17 12/16/2015 ALT 16 12/16/2015 ALKPHOS 139 12/16/2015 BILITOTAL 0.6 12/16/2015 INR 2.13 (H) 12/19/2017 Estrella (Rashad) MD [facility] Fellow (p) Anya Tapia LSW - 12/19/2017 10:05 AM CDT SW: SW acknowledges consult. Will meet with patient around noon today when his family arrives to hospital. Rober Saravia MD - 12/19/2017 8:38 AM CDT Vascular Surgery Progress Note S: Very comfortable. VAC is been working well. Appetite is good. O: A been placed on IV heparin due to low INR. Vitals: BP Min: 140/61 Max: 188/90 Temp Av.2 ??F (36.8 ??C) Min: 97.6 ??F (36.4 ??C) Max: 98.5 ??F (36.9 ??C) Pulse Av.3 Min: 72 Max: 86 I/O last 3 completed shifts: In: 1201.8 [P.O.:880; I.V.:321.8] Out: - Physical Exam: Comfortable. Thigh dialysis surgical site looks good. Strong pulse noted. VAC was removed from the left heel. Bleeding is noted. Tissue is viable. Procedure: VAC was reapplied. Silver granular foam sponge was cut to appropriate size. Overlying adhesive was applied and this was bridged more anteriorly on his foot and hooked to the hospital VAC system at 125 mmHg. Tolerated this well. Morning INR= 2.13 Assessment/Plan: Doing well. Plan dialysis in the hospital today and likely discharge later today. Will need wound VAC to aid in healing of heel ulcer. Hopefully we can arrange this to be changed with home health care and followed up by the heel attacher would been seeing the patient prior to the hospitalization for debridement as needed due to the distance for the patient to come back to our institution for wound care. Wm. Rani MD Mona Stein, PT - 12/18/2017 4:49 PM CDT 12/18/17 1554 Quick Adds Type of Visit Initial PT Evaluation Living Environment Lives With parent(s);other (see comments) (Mother and nephew) Living Arrangements house Number of Stairs to Enter Home 0 (Ramp present.) Number of Stairs Within Home 0 Transportation Available ([facility] transportation services) Living Environment Comment Pt's mom assists with cooking, cleaning, and laundry. Self-Care Usual Activity Tolerance moderate Current Activity Tolerance moderate Regular Exercise no Equipment Currently Used at Home cane, straight Functional Level Prior Ambulation 1-->assistive equipment Transferring 1-->assistive equipment Fall history within last six months no General Information Onset of Illness/Injury or Date of Surgery - Date 12/16/17 Referring Physician Estrella Guillen MD Patient/Family Goals Statement None stated. Pertinent History of Current Problem (include personal factors and/or comorbidities that impact the POC) 52 y/o male POD # 1 L heel I & D. PMH including ESRD, DM, HTN, PVD. Precautions/Limitations fall precautions Weight-Bearing Status - LLE toe touch weight-bearing Weight-Bearing Status - RLE weight-bearing as tolerated General Observations Pt sleeping soundly upon arrival of therapist. General Info Comments Up ad ramírez. Cognitive Status Examination Orientation place;time Level of Consciousness lethargic/somnolent Follows Commands and Answers Questions 75% of the time;unable to follow multi- step instructions Personal Safety and Judgment impaired Pain Assessment Patient Currently in Pain (L heel pain at rest: 3/10 ) Integumentary/Edema Integumentary/Edema Comments Wound vac on L heel I & D site. Posture Posture Comments Noted forward head and shoulder posture upon sitting EOB and standing at FWW. Range of Motion (ROM) ROM Comment Limited L ankle ROM d/t pain otherwise B LEs WFL. Strength Strength Comments Not formally assessed. Pt demonstrated at least 3/5 grossly in B LEs with functional mobilityl. Bed Mobility Bed Mobility Comments Supine <> sit, SBA. Transfer Skills Transfer Comments Sit <> stand with FWW and CGA. Gait Gait Comments Pt amb 5' with FWW and CGA. Balance Balance Comments Noted good sitting and standing balance at FWW. Sensory Examination Sensory Perception Comments Pt denies numbness/tingling in B LEs and UEs. General Therapy Interventions Planned Therapy Interventions bed mobility training;gait training;ROM;strengthening;transfer training Clinical Impression Criteria for Skilled Therapeutic Intervention yes, treatment indicated PT Diagnosis Difficulty with gait. Influenced by the following impairments Pain, LLE TTWB restriction, Generalized weakness, Decreased activity tolerance Functional limitations due to impairments Limited functional mobility requiring AD and assist. Clinical Presentation Stable/Uncomplicated Clinical Presentation Rationale Based on PMH, current presentation, and social support. Clinical Decision Making (Complexity) Low complexity Therapy Frequency` daily Predicted Duration of Therapy Intervention (days/wks) 4 days Anticipated Discharge Disposition Transitional Care Facility;Home with Assist (Pending progress made during hospitalization.) Risk & Benefits of therapy have been explained Yes Patient, Family & other staff in agreement with plan of care Yes [facility] AM-PAC??? 6 Clicks V.2 Basic Mobility Inpatient Short Form 1. Turning from your back to your side while in a flat bed without using bedrails? 4 - None 2. Moving from lying on your back to sitting on the side of a flat bed without using bedrails? 3 - ALittle 3. Moving to and from a bed to a chair (including a wheelchair)? 3 - A Little 4. Standing up from a chair using your arms (e.g., wheelchair, or bedside chair)? 3 - A Little 5. To walk in hospital room? 3 - A Little 6. Climbing 3-5 steps with a railing? 2 - A Lot Basic Mobility Raw Score (Score out of 24.Lower scores equate to lower levels of function) 18 Total Evaluation Time Total Evaluation Time (Minutes) 8 Graham Long OT - 12/18/2017 11:02 AM CDT 12/18/17 1048 Quick Adds Type of Visit Initial Occupational Therapy Evaluation Living Environment Lives With parent(s);other (see comments) (mother and nephew) Living Arrangements house (rambler with basement) Home Accessibility tub/shower is not walk in (pt says he otherwise stays on [facility] main level) Transportation Available (pt not clear, says he gets a ride to the doctor) Living Environment Comment pt states he does his basic ADLS, mother does the housework and IADLS Self-Care Dominant Hand right Current Activity Tolerance poor Equipment Currently Used at Home cane, straight (not sure at this time. Will need PT eval for AD) Functional Level Prior Ambulation 1-->assistive equipment Transferring 1-->assistive equipment Toileting 0-->independent Bathing 2-->assistive person Dressing 2-->assistive person Eating 0-->independent Communication 0-->understands/communicates without difficulty Swallowing 0-->swallows foods/liquids without difficulty Cognition 1 - attention or memory deficits (cognitive issue noted in chart) Fall history within last six months yes Number of times patient has fallen within last six months 1 Which of the above functional risks had a recent onset or change? ambulation;transferring;bathing;dressing General Information Onset of Illness/Injury or Date of Surgery - Date 12/17/17 Referring Physician Estrella Guillen Patient/Family Goals Statement (pt inconsistent about commuinicating) Additional Occupational Profile Info/Pertinent History of Current Problem Pt admitted for a left heal debriedment from a nonhealing wound. PMH includes DM, SHIRLEY on Cpap, legally blind, essential HTN, protienuria, obesisty, anemia, othostatis, syncope Precautions/Limitations fall precautions;other (see comments) Weight-Bearing Status - LLE toe touch weight-bearing General Observations pt sitting up in chair, willing to participate Cognitive Status Examination Orientation person (partial place) Level of Consciousness alert Able to Follow Commands mild impairment Personal Safety (Cognitive) at risk behaviors demonstrated (pt not consistent in response, mumbling at times) Attention Sustained attention impaired Visual Perception Visual Perception (pt is legally blind, appears to have some ability to see ) Pain Assessment Patient Currently in Pain No Range of Motion (ROM) ROM Quick Adds No deficits were identified ROM Comment B UEs Strength Manual Muscle Testing Quick Adds Other Strength Comments shoulder strength is weak bilatterally, may have had some confusion with the test Hand Strength Hand Strength Comments gross grasp fair and equal Coordination Upper Extremity Coordination No deficits were identified Grooming Level of [place]: Grooming stand-by assist Physical Assist/Nonphysical Assist: Grooming set-up required;verbal cues;1 person assist Activities of Daily Living Analysis Impairments Contributing to Impaired Activities of Daily Living cognition impaired;post surgical precautions;ROM decreased;strength decreased General Therapy Interventions Planned Therapy Interventions ADL retraining;strengthening;transfer training Clinical Impression Criteria for Skilled Therapeutic Interventions Met yes, treatment indicated OT Diagnosis decreased independence and possible safety issues with ADLS Influenced by the following impairments post surgical precautions, weakness, possible confusion Assessment of Occupational Performance 3-5 Performance Deficits Identified Performance Deficits decreased indpendence and safety with dressing, bathing, bathroom transfers, functional mobility Clinical Decision Making (Complexity) Moderate complexity Therapy Frequency daily Predicted Duration of Therapy Intervention (days/wks) 4 days Anticipated Discharge Disposition Home with Assist;Home with Home Therapy;Transitional Care Facility Risks and Benefits of Treatment have been explained. Yes Patient, Family & other staff in agreement with plan of care Yes [facility]-PAC TM 6 Clicks ?? 2016, Trustees of [facility], under license to [employer]. All rights reserved. 6 Clicks Short Forms Daily Activity Inpatient Short Form [facility] AM-PAC??? 6 Clicks Daily Activity Inpatient Short Form 1. Putting on and taking off regular lower body clothing? 2 - A Lot 2. Bathing (including washing, rinsing, drying)? 2 - A Lot 3. Toileting, which includes using toilet, bedpan or urinal? 2 - A Lot 4. Putting on and taking off regular upper body clothing? 3 - A Little 5. Taking care of personal grooming such as brushing teeth? 3 - A Little 6. Eating meals? 3 - A Little Daily Activity Raw Score (Score out of 24.Lower scores equate to lower levels of function) 15 Total Evaluation Time Total Evaluation Time (Minutes) 15 Estrella Guillen MD - 12/18/2017 10:02 AM CDT Vascular Surgery Progress Note Assessment and Plan: Assessment: 52-year old man POD 2 s/p left thigh AV-graft banding, left heel debridement and wound vac placement. He is stable and his pain is controlled. INR is 1.57 this morning. Plan: - We will start low-dose heparin drip until her Coumadin comes back to therapeutic range. The indication for anticoagulation is to prevent graft thrombosis. -Continue to check daily INR. - Dialysis today - PT/OT evaluation. - Wound vac change tomorrow to evaluate heel wound. Interval History: Vital signs are stable. No acute event overnight. The patient had dialysis yesterday. His pain is well controlled. Medications: Current Facility-Administered Medications Medication ??? amLODIPine (NORVASC) tablet 10 mg ??? atorvastatin (LIPITOR) tablet 20 mg ??? bisacodyl (DULCOLAX) EC tablet 10 mg ??? calcium acetate (PHOSLO) capsule 1,334 mg ??? cholecalciferol (vitamin D3) tablet 2,000 Units ??? lisinopril (PRINIVIL/ZESTRIL) tablet 40 mg ??? lidocaine 1 % 1 mL ??? lidocaine (LMX4) cream ??? sodium chloride (PF) 0.9% PF flush 3 mL ??? sodium chloride (PF) 0.9% PF flush 3 mL ??? naloxone (NARCAN) injection 0.1-0.4 mg ??? Warfarin Therapy Reminder (Check START DATE - warfarin may be starting in the FUTURE) ??? acetaminophen (TYLENOL) tablet 975 mg ??? [START ON 12/19/2017] acetaminophen (TYLENOL) tablet 650 mg ??? oxyCODONE IR (ROXICODONE) tablet 5-10 mg ??? ondansetron (ZOFRAN-ODT) ODT tab 4 mg Or ??? ondansetron (ZOFRAN) injection 4 mg ??? senna-docusate (SENOKOT-S;PERICOLACE) 8.6-50 MG per tablet 1 tablet Or ??? senna-docusate (SENOKOT-S;PERICOLACE) 8.6-50 MG per tablet 2 tablet ??? metoprolol tartrate (LOPRESSOR) tablet 200 mg Facility-Administered Medications Ordered in Other Encounters Medication ??? heparin 100 UNIT/ML Lock Flush SOLN Physical Exam: Temp: 98.3 ??F (36.8 ??C) Temp src: Oral BP: 158/79 Pulse: 80 Heart Rate: 80 Resp: 16 SpO2: 100 % [id number]: None (Room air) General: Awake, alert and answers questions appropriately HEENT: NC, AT Respiratory: not in respiratory distress Abdomen: soft, non-tender Ext: Left thigh incision is intact, no sign of bleeding. Left heel has wound vac in place, putting out scant serosanguinous fluid Pulsees: Dopplerable biphasic DP on the left Data: Lab Results Component Value Date WBC 5.1 12/18/2017 HGB 8.2 (L) 12/18/2017 HCT 26.2 (L) 12/18/2017 PLT 168 12/18/2017 NA 125 (L) 12/17/2017 POTASSIUM 5.1 12/17/2017 CHLORIDE 84 (L) 12/17/2017 CO2 21 12/17/2017 BUN 114 (H) 12/17/2017 CR 16.10 (H) 12/17/2017 GLC 100 (H) 12/17/2017 AST 17 12/16/2015 ALT 16 12/16/2015 ALKPHOS 139 12/16/2015 BILITOTAL 0.6 12/16/2015 INR 1.57 (H) 12/18/2017 Estrella Whitaker) MD [facility] (p) Chi Brunson MD - 12/17/2017 12:[address] [facility] Renal Progress Note SHORTHAND PATEL FOR MY NOTES: c = with, s = without, p = after, a = before, x = except, asx = asymptomatic, tx = transplant or treatment, sx = symptoms or symptomatic, cx = canceled or culture, rxn = reaction, yday = yesterday, nl = normal, abx = antibiotics, fxn = function, dx = diagnosis, dz = disease, m/h = melena/hematochezia, c/d/l/goldberg = cramping/dizziness/lightheadedness/headache, d/c = discharge or diarrhea/constipation, f/c/n/v = fevers/chills/nausea/vomiting, cp/sob = chest pain/shortness of breath. Assessment/Plan: 1. ESKD. Pt dialysing s probs. Stable run today. No issues. A. Continue TRS schedule. 2. LLE steal syndrome s/p AV-graft banding. Pt is not having any pain at present. Wound VAC noted. A. Per Vasc Surg. 3. Anemia. Hb in the 8s right now. Receiving EPO. A. Follow hb, clinically. 4. FEN. Electrolytes are ok. On dialysis diet. Interval History: Pt feels ok today. No issues on HD. Denies LLE pain. Medications and Allergies: ??? [START ON 12/18/2017] amLODIPine (NORVASC) tablet 10 mg 10 mg Oral Once per day on Sun Tue ??? atorvastatin (LIPITOR) tablet 20 mg 20 mg Oral QPM ??? bisacodyl 10 mg Oral Once per day on Sun Tue Sat ??? calcium acetate 1,334 mg Oral TID w/meals ??? cholecalciferol 2,000 Units Oral QPM ??? lisinopril (PRINIVIL/ZESTRIL) tablet 40 mg 40 mg Oral Daily ??? sodium chloride (PF) 3 mL Intracatheter Q8H ??? acetaminophen 975 mg Oral Q8H ??? senna-docusate 1 tablet Oral BID Or ??? senna-docusate 2 tablet Oral BID ??? [START ON 12/18/2017] metoprolol tartrate 200 mg Oral 2 times per day on Sun Tue Allergies Allergen Reactions ??? Aspirin [Dihydroxyaluminum Aminoacetate] GI Disturbance GI bleeding Physical Exam: Vitals were reviewed Heart Rate: 64, Blood pressure 131/64, pulse 74, temperature 98.5 ??F (36.9 ??C), temperature sourceOral, resp. rate 14, height 1.702 m (5' 7), weight 90.1 kg (198 lb 10.2 oz), SpO2 97 %. Wt Readings from Last 3 Encounters: 12/17/17 90.1 kg (198 lb 10.2 oz) 12/07/17 90 kg (198 lb 8 oz) 04/25/17 90.7 kg (200 lb) Intake/Output Summary (Last 24 hours) at 12/17/17 1253 Last data filed at 12/17/17 1145 Gross per 24 hour Intake 1120 ml Output 3000 ml Net -1880 ml GENERAL APPEARANCE: pleasant, NAD, alert HEENT: Eyes/ears/nose/neck grossly normal RESP: lungs cta b c good efforts, no crackles, rhonchi or wheezes CV: RRR, nl S1/S2 ABDOMEN: s/nt/nd EXTREMITIES/SKIN:+ edema; LLE - wound vac in place. Incision looks ok. Pt seen on HD. Stable run. -3L UF goal. Good BFR via L thigh graft. Data: CBC RESULTS: Recent Labs Lab 12/17/17 0830 WBC 6.6 RBC 3.26* HGB 8.7* HCT 27.5* PLT 223 Basic Metabolic Panel: Recent Labs Lab 12/17/17 0830 12/16/17 0925 NA 125* 129* POTASSIUM 5.1 4.9 CHLORIDE 84* 88* CO2 21 25 BUN 114* 90* CR 16.10* 15.00* GLC 100* 87 JON 9.0 9.3 INR Recent Labs Lab 12/17/17 0705 12/16/17 1509 12/16/17 0925 INR 1.54* 2.15* 6.98* Attestation: I have reviewed today's relevant vital signs, notes, medications, labs and imaging. Chi Brunson MD [facility] - Nephrology [phone] PROJECT MANAGER Estrella Guillen MD - 12/17/2017 10:06 AM CST Vascular Surgery Progress Note Assessment and Plan: Assessment: 52-year old man POD 1 s/p left thigh AV-graft banding, left heel debridement and wound vac placement. He is stable and his pain is controlled. INR is 1.54 this morning. Plan: - Continue Coumadin. If the INR drops again tomorrow, we will have to start a heparin drip. - Check INR tomorrow morning. - Dialysis today - PT/OT evaluation. - Wound vac change on Tuesday to evaluate heel wound. Interval History: Vital signs are stable. No acute event overnight. Pain is well controlled. Medications: Current Facility-Administered Medications Medication ??? 0.9% sodium chloride BOLUS ??? albumin human 5 % injection 250 mL ??? heparin 10,000 units/10 mL infusion (DIALYSIS USE) ??? lidocaine 1 % 0.5 mL ??? lidocaine 1 % 0.5 mL ??? Stop Heparin 60 minutes before end of treatment ??? [START ON 12/18/2017] amLODIPine (NORVASC) tablet 10 mg ??? atorvastatin (LIPITOR) tablet 20 mg ??? bisacodyl (DULCOLAX) EC tablet 10 mg ??? calcium acetate (PHOSLO) capsule 1,334 mg ??? cholecalciferol (vitamin D3) tablet 2,000 Units ??? lisinopril (PRINIVIL/ZESTRIL) tablet 40 mg ??? lidocaine 1 % 1 mL ??? lidocaine (LMX4) cream ??? sodium chloride (PF) 0.9% PF flush 3 mL ??? sodium chloride (PF) 0.9% PF flush 3 mL ??? naloxone (NARCAN) injection 0.1-0.4 mg ??? Warfarin Therapy Reminder (Check START DATE - warfarin may be starting in the FUTURE) ??? acetaminophen (TYLENOL) tablet 975 mg ??? [START ON 12/19/2017] acetaminophen (TYLENOL) tablet 650 mg ??? oxyCODONE IR (ROXICODONE) tablet 5-10 mg ??? ondansetron (ZOFRAN-ODT) ODT tab 4 mg Or ??? ondansetron (ZOFRAN) injection 4 mg ??? senna-docusate (SENOKOT-S;PERICOLACE) 8.6-50 MG per tablet 1 tablet Or ??? senna-docusate (SENOKOT-S;PERICOLACE) 8.6-50 MG per tablet 2 tablet ??? [START ON 12/18/2017] metoprolol tartrate (LOPRESSOR) tablet 200 mg Facility-Administered Medications Ordered in Other Encounters Medication ??? heparin 100 UNIT/ML Lock Flush SOLN Physical Exam: Temp: 98.2 ??F (36.8 ??C) Temp src: Oral BP: 120/74 Pulse: 74 Heart Rate: 74 Resp: 15 SpO2: 94 % O2 Device: None (Room air) Oxygen Delivery: 2 LPM General: Awake, alert and answers questions appropriately HEENT: NC, AT Respiratory: not in respiratory distress Abdomen: soft, non-tender Ext: Left thigh incision is intact, no sign of bleeding. Left heel has wound vac in place, putting out scant serosanguinous fluid Pulsees: Dopplerable biphasic DP on the left Data: Lab Results Component Value Date WBC 5.8 12/07/2017 HGB 9.9 (L) 12/07/2017 HCT 31.1 (L) 12/07/2017 PLT 181 12/07/2017 NA 129 (L) 12/16/2017 POTASSIUM 4.9 12/16/2017 CHLORIDE 88 (L) 12/16/2017 CO2 25 12/16/2017 BUN 90 (H) 12/16/2017 CR 15.00 (H) 12/16/2017 GLC 87 12/16/2017 AST 17 12/16/2015 ALT 16 12/16/2015 ALKPHOS 139 12/16/2015 BILITOTAL 0.6 12/16/2015 INR 1.54 (H) 12/17/2017 Estrella Whitaker) MD [facility] (p) Angie Heller RN - 12/17/2017 9:31 AM CST Potassium Date Value Ref Range Status 12/16/2017 4.9 3.4 - 5.3 mmol/L Final Lab Results Component Value Date HGB 9.9 12/07/2017 Weight: 90.1 kg (198 lb 10.2 oz) POST WT 76.1kg DIALYSIS PROCEDURE NOTE Hepatitis status of previous patient on machine log was checked and verified ok to use with this patients hepatitis status. Patient dialyzed for 3.5 hrs. on a 2 K bath with a net fluid removal of 3L. A BFR of 400 ml/min was obtained via a Lt leg graft using 15gauge needles. The patient was seen by Dr. Brunson during the treatment. Total heparin received during the treatment: 1500 units. Sites held x 15 min then pressure drsgsapplied. Meds Given:EPO 6,000units and Hectoral 4.5mcg IVComplications: NONE. Procedure and ESRD teaching done and questions answered. See flowsheet in [employer] for further details and post assessment. Machine water alarm in place and functioning. Pt returned via wheelchair Vascular Access: Aseptic prep done for both on/off. Report received from:Irina Romero R.N. Report given to:Irina Romero R.N. HEPATITIS B SURFACE ANTIGEN neg DATE 06/04/14 HEPATITIS B SURFACE ANTIBODY Immune DATE 07/05/17 Chlorine/Chloramine water system checked every [address] Dialysis at [facility] PROJECT MANAGER Isis Stanley RN - 12/16/2017 3:39 PM CST Completed and signed wound vac orders faxed to [facility] with supporting documents to . PROJECT MANAGER Estrella Guillen MD - 12/16/2017 3:35 PM CST Vascular Surgery Post-op Note Assessment and Plan: Assessment: 52-year old man s/p left thigh graft banding, left heel debridement and wound vac placement. He is stable and his pain is controlled. Post-op INR came back 2.15. Plan: - Will restart Coumadin tonight. - Check INR tomorrow morning. - Dialysis tomorrow. - PT/OT eval tomorrow. - Wound vac change on Tuesday to evaluate heel wound. Interval History: Mr. Julio Cesar Hartley underwent banding of left femoral ProCol AV-graft banding and left heel debridementearlier today. He tolerated the procedure well. Post- operatively, he is tolerating a dialysis diet and his pain is well controlled. Medications: Current Facility-Administered Medications Medication ??? [START ON 12/18/2017] amLODIPine (NORVASC) tablet 10 mg ??? atorvastatin (LIPITOR) tablet 20 mg ??? [START ON 12/17/2017] bisacodyl (DULCOLAX) EC tablet 10 mg ??? calcium acetate (PHOSLO) capsule 1,334 mg ??? cholecalciferol (vitamin D3) tablet 2,000 Units ??? [START ON 12/17/2017] lisinopril (PRINIVIL/ZESTRIL) tablet 40 mg ??? metoprolol tartrate (LOPRESSOR) tablet 200 mg ??? lidocaine 1 % 1 mL ??? lidocaine (LMX4) cream ??? sodium chloride (PF) 0.9% PF flush 3 mL ??? sodium chloride (PF) 0.9% PF flush 3 mL ??? naloxone (NARCAN) injection 0.1-0.4 mg ??? Warfarin Therapy Reminder (Check START DATE - warfarin may be starting in the FUTURE) ??? acetaminophen (TYLENOL) tablet 975 mg ??? [START ON 12/19/2017] acetaminophen (TYLENOL) tablet 650 mg ??? oxyCODONE IR (ROXICODONE) tablet 5-10 mg ??? ondansetron (ZOFRAN-ODT) ODT tab 4 mg Or ??? ondansetron (ZOFRAN) injection 4 mg ??? senna-docusate (SENOKOT-S;PERICOLACE) 8.6-50 MG per tablet 1 tablet Or ??? senna-docusate (SENOKOT-S;PERICOLACE) 8.6-50 MG per tablet 2 tablet ??? [START ON 12/18/2017] metoprolol tartrate (LOPRESSOR) tablet 200 mg ??? metoprolol tartrate (LOPRESSOR) tablet 200 mg Facility-Administered Medications Ordered in Other Encounters Medication ??? heparin 100 UNIT/ML Lock Flush SOLN Physical Exam: Temp: 97.4 ??F (36.3 ??C) Temp src: Oral BP: 145/74 Pulse: 68 Heart Rate: 67 Resp: 12 SpO2: 98 % O2 Device: Nasal cannula Oxygen Delivery: 2 LPM General: Awake, alert and answers questions appropriately HEENT: NC, AT Respiratory: not in respiratory distress Abdomen: soft, non-tender Ext: Left thigh incision with dressing in place, no sign of bleeding. Left heel has wound vac in place, putting out scant serosanguinous fluid Pulsees: Dopplerable biphasic DP on the left Data: Lab Results Component Value Date WBC 5.8 12/07/2017 HGB 9.9 (L) 12/07/2017 HCT 31.1 (L) 12/07/2017 PLT 181 12/07/2017 NA 129 (L) 12/16/2017 POTASSIUM 4.9 12/16/2017 CHLORIDE 88 (L) 12/16/2017 CO2 25 12/16/2017 BUN 90 (H) 12/16/2017 CR 15.00 (H) 12/16/2017 GLC 87 12/16/2017 AST 17 12/16/2015 ALT 16 12/16/2015 ALKPHOS 139 12/16/2015 BILITOTAL 0.6 12/16/2015 INR 2.15 (H) 12/16/2017 Estrella (Rashad) MD [facility] (y) PROJECT MANAGER Tracey Estrada - 12/16/2017 9:15 AM CST Admission medication history interview status for the 12/16/2017 admission is complete. See [facility] admission navigator for prior to admission medications Medication history source reliability:Good Medication history interview source(s):Patient Medication history resources (including written lists, pill bottles, clinic record):None Primary pharmacy.[place]; [facility] Additional medication history information not noted on WELLNESS NURSE RN med list :None Time spent in this activity: 45 minutes Prior to Admission medications Medication Sig Last Dose Taking? Auth Provider BISACODYL PO Take 10 mg by mouth four times a week (Takes 2 x 5mg tablet = 10mg dose) 12/14/2017 Yes Reported, Patient ATORVASTATIN CALCIUM PO Take 20 mg by mouth every evening 12/15/2017 at pm Yes Reported, Patient B [id number] Acid (HARRIS CAPS PO) Take 1 mg by mouth every evening 12/15/2017 at pm Yes Reported, Patient acetaminophen-codeine (TYLENOL #3) 300-30 MG per tablet Take 1-2 tablets by mouth every 4 hours as needed for pain maximum 12 tablet(s) per day 12/16/2017 at 0630 Yes Rober Saravia MD AMLODIPINE BESYLATE PO Take 10 mg by mouth four times a week On Non dialysis days which is MWFSun 12/16/2017 at 0630 Yes Unknown, Entered By History METOPROLOL TARTRATE PO Take 200 mg by mouth 2 times daily Take on MWFSun, on Non-dialysis days 12/16/2017 at 0630 Yes Unknown, Entered By History Calcium Acetate, Phos Binder, (CALCIUM ACETATE PO) Take 1,334 mg by mouth 3 times daily (with meals)Takes with meals (2 x 667mg tablet) 12/15/2017 at pm Yes Reported, Patient LISINOPRIL PO Take 40 mg by mouth daily (Takes 2 x 20mg tablet = 40mg ) 12/16/2017 at 0630 Yes Reported, Patient Cholecalciferol (VITAMIN D3 PO) Take 2,000 Units by mouth every evening 12/15/2017 at pm Yes Unknown, Entered By History WARFARIN SODIUM PO Take 5 mg by mouth every evening 12/13/2017 at pm Unknown, Entered By History PROJECT MANAGER documented in this encounter Consult Notes Job Her MD - 12/16/2017 3:27 PM CSTAssociated Order(s): NEPHROLOGY IP CONSULT RENAL CONSULTATION NOTE REFERRING MD: Estrella Guillen MD REASON FOR CONSULTATION: ESRD HPI: 43 y.o man with ESRD, DM, hypertension and PVD with non-healing ulcer 2/2 steal syndrome, s/p angioplasty of the L thigh AVG. Patient gets dialysis TTS at [facility]. His last treatment was on Tuesday. He has been developing pain in the LLE due to steal syndrome. Patient refused dialysis on because his leg was painful. Currently, he denies shortness of breath. He had a fistulogram and angioplasty of the AVG today. ROS: A complete review of systems was performed and is negative except as noted above. PMH: Past Medical History: Diagnosis Date ??? A-V fistula (H) left forearm ??? Anemia ??? Anemia ??? Blind ??? Chronic in-center hemodialysis status (H) ??? Cognitive deficits ??? Diabetes mellitus (H) ??? DVT (deep venous thrombosis) (H) ??? ESRD (end stage renal disease) (H) dialysis T- ??? History of staph septicemia 12/20/2015 ??? Hyperkalemia ??? Hyperlipemia ??? Hyperlipidaemia ??? Hypertension ??? Hypertension ??? Kidney disease ??? Kidney disease ??? Orthostasis ??? Retinopathy ??? Sleep apnea CPAP ??? Syncope PSH: Past Surgical History: Procedure Laterality Date ??? [...] REVISION FISTULA ARTERIOVENOUS LOWER EXTREMITY; Surgeon: Rober Sraavia MD; Location: [facility] ??? REVISION FISTULA ARTERIOVENOUS LOWER EXTREMITY Left 11/19/2015 Procedure: REVISION FISTULA ARTERIOVENOUS LOWER EXTREMITY; Surgeon: Rober Saravia MD; Location: [facility] OR ??? THROMBECTOMY LOWER EXTREMITY 08/09/2012 Procedure: THROMBECTOMY LOWER EXTREMITY;; Surgeon: Rober Saravia MD; Location: [facility] OR MEDICATIONS: ??? [START ON 12/18/2017] amLODIPine (NORVASC) tablet 10 mg 10 mg Oral Once per day on Sun Tue ??? atorvastatin (LIPITOR) tablet 20 mg 20 mg Oral QPM ??? [START ON 12/17/2017] bisacodyl 10 mg Oral Once per day on Sun Tue Sat ??? calcium acetate 1,334 mg Oral TID w/meals ??? cholecalciferol 2,000 Units Oral QPM ??? [START ON 12/17/2017] lisinopril (PRINIVIL/ZESTRIL) tablet 40 mg 40 mg Oral Daily ??? metoprolol tartrate (LOPRESSOR) tablet 200 mg 200 mg Oral Q Tue BID ??? sodium chloride (PF) 3 mL Intracatheter Q8H ??? acetaminophen 975 mg Oral Q8H ??? senna-docusate 1 tablet Oral BID Or ??? senna-docusate 2 tablet Oral BID ??? [START ON 12/18/2017] metoprolol tartrate 200 mg Oral Weekly ??? metoprolol tartrate 200 mg Oral Weekly ALLERGIES: Allergies as of 12/09/2017 - Review Complete 12/07/2017 Allergen Reaction Noted ??? Aspirin [dihydroxyaluminum aminoacetate] GI Disturbance 07/16/2011 FH: Family History Problem Relation Age of Onset ??? Family history unknown: Yes SH: Social History Social History ??? Marital status: Single Spouse name: N/A ??? Number of children: N/A ??? Years of education: N/A Occupational History ??? Not on file. Social History Main Topics ??? Smoking status: Never Smoker ??? Smokeless tobacco: Never Used ??? Alcohol use No ??? Drug use: No ??? Sexual activity: Not on file Other Topics Concern ??? Not on file Social History Narrative PHYSICAL EXAM: BP 139/71 Pulse 68 Temp 97.4 ??F (36.3 ??C) (Oral) Resp 12 Ht 1.702 m (5' 7) Wt 88.5 kg (195 lb) SpO2 97% BMI 30.54 kg/m2 GENERAL: NAD HEENT: Normocephalic. No gross abnormalities. MMM. CV: RRR, + murmurs, no clicks, gallops, or rubs, no edema, no carotid bruits RESP: Clear bilaterally with good efforts. No wheezes or crackles. GI: Abdomen obese, soft, NT MUSCULOSKELETAL: extremities no edema. SKIN: no rash NEURO: awake and alert. PSYCH: mood good, affect appropriate LYMPH: No palpable ant/post cervical L thigh graft + bruit LABS: CBC RESULTS: No results for input(s): WBC, RBC, HGB, HCT, PLT in the last 168 hours. BMP RESULTS: Recent Labs Lab 12/16/17 0925 NA 129* POTASSIUM 4.9 CHLORIDE 88* CO2 25 BUN 90* CR 15.00* GLC 87 JON 9.3 INR Recent Labs Lab 12/16/17 0925 INR 6.98* DIAGNOSTICS: Reviewed A/P: 52 y.o man with ESRD, hypertensin, diabetes and PVD s/p angioplasty of AVG. # ESRD -TTS, 3.5hrs, eDW 88.5 kg (UF 3-3.5 liters), + heparin, 6000 Epogens, Hectorl 4.5 mcg -last treatment Tuesday # HTN. Controlled. -metoprolol -lisinopril -Norvasc # CKD-MBD. -Phoslo -4.5 mcg of Hectorol with HD # Anemia. -6000 units of Epogen with HD Job Her MD [facility] - Nephrology Office Pager: [phone] PROJECT MANAGER documented in this encounter Nursing Notes Karen Darby RN - 12/16/2017 1:28 PM CST Pt stable. Okay to transfer to floor per Dr. Gonzales PROJECT MANAGER Arianna Louie RN - 12/16/2017 1:01 PM CST Pts aunt by to see patient. PROJECT MANAGER Arianna Louie RN - 12/16/2017 12:[address] Saravia by to see patient. PROJECT MANAGER documented in this encounter Miscellaneous Notes Plan of Care - Kimmy Strickland, PT - 12/19/2017 5:32 PM CDT Problem: Patient Care Overview Goal: Plan of Care/Patient Progress Review Physical Therapy Discharge Summary Reason for therapy discharge: Discharged to home with home therapy. Progress towards therapy goal(s). See goals on Care Plan in [facility] electronic health record for goal details. Goals not met. Barriers to achieving goals: limited tolerance for therapy and discharge from facility. Therapy recommendation(s): Continued therapy is recommended. Rationale/Recommendations: TCU was recommended but aunt is taking patient home with her assist and Home PT. Plan of Care - Nola Lizarraga RN - 12/19/2017 5:32 PM CDT Problem: Patient Care Overview Goal: Plan of Care/Patient Progress Review Outcome: Completed Date Met: 12/19/17 VSS. Up SBA and walker, able to demonstrate appropriate WB on left foot. Pain control with PO tylenol and oxycodone PRN. Wound vac intact. DC instructions, medications, follow up and home wound vac reviewed with pt and family. Questions answered. DC to home via family. Plan of Care - Izabel Cheung OT - 12/19/2017 5:32 PM CDT Problem: Patient Care Overview Goal: Plan of Care/Patient Progress Review Occupational Therapy Discharge Summary Reason for therapy discharge: Discharged to home. Progress towards therapy goal(s). See goals on Care Plan in [facility] electronic health record for goal details. Goals not met. Barriers to achieving goals: discharge from facility. Therapy recommendation(s): Recommended d/c to TCU. Pt d/c home with family A. Plan of Care - Stevne Sosa RN - 12/19/2017 3:19 PM CDT Problem: Patient Care Overview Goal: Plan of Care/Patient Progress Review Outcome: Improving AVSS. A&O x 4. Heparin was dc'd and saline locked on R hand. Wound vac intact on L foot. Incision on L leg C/D/I. Renal diet. Up with an assist of 1. Discharge pending discussion with PT and getting a portable wound vac. Aunt and uncle currently in room. Plan of Care - Kimmy Strickland PT - 12/19/2017 11:52 AM CDT Problem: Patient Care Overview Goal: Plan of Care/Patient Progress Review Gas Furnace Installer PT Patient plan for discharge: not stated Current status: Patient had wound vac change this am and L heel if painful with mobility; Initially agreeable to OOB mobility with encouragement and then only willing to transfer with walker to recliner secondary to foot pain; needing min/CGA and walker; able to maintain TTWB on L LE for transfer; unable to tolerate foot in dependent position; elevated in recliner; encouraged patient to stay up in recliner for lung hygiene/OOB tolerance; with much encouragement patient participated in LE AROM/AAROM/strengthening ex's; Barriers to return to prior living situation: Unclear level of assist patient's mother can provided upon return home, TTWB restriction, Pain, Level of assist; if discharging directly home will need 24/7 assist for all mobility, possibly a wheelchair for transport and longer distance use; has ramp access into home Recommendations for discharge: TCU Rationale for recommendations: medical issues; impaired functional mobility; weakness; poor activitytolerance; TTWB on L Entered by: Kimmy Strickland 12/19/2017 11:40 AM Plan of Care - Cecilia Centeno OTA - 12/19/2017 8:20 AM CDT Problem: Patient Care Overview Goal: Plan of Care/Patient Progress Review Gas Furnace Installer OT Patient plan for discharge: unknown Current status: Pt completed supine to sit EOB SBA, Mathew sit to stand, with use of FWW pt amb to/from bathroom Mathew, pt able to maintain TTWB during mobility, pt fatigues easily with task, completed toilet transfer with RTS Mathew, pt declined standing at sink for ADLS due to fatigue, sat to complete. Barriers to return to prior living situation: Confusion and current medical condition. Unknown levelof assist by family at home. Recommendations for discharge: recommend DC to TCU at this time. If pt improves in functional mobility to follow precautions and family can assist pt may be able to return home with assist of family per plan established by the Occupational Therapist Rationale for recommendations: Pt appears below baseline, demonstrates some confusion which may makeit difficult to follow toe touch WB restrictions. Would benefit from daily therapy to increase ability for ADLS and check cognitive skills. Entered by: Cecilia Centeno 12/19/2017 8:17 AM Plan of Care - Love Myers RN - 12/19/2017 5:16 AM CDT Problem: Patient Care Overview Goal: Plan of Care/Patient Progress Review Outcome: No Change Patient is alert, vital signs stable except SBP elevated, fistula to left lower extremity, bruit andthrill present, dressing CDI. Left heel has wound vac in place at -125 continuous suction , with scant serosanguinous fluid. Heparin infusing at 12ML/hr. Hydralazine administered for SBP greater than 140 at 06:55. Plan of Care - Magda Piña RN - 12/18/2017 11:41 PM CDT Problem: Patient Care Overview Goal: Plan of Care/Patient Progress Review A/Ox3; AVSS ex HTN- prn given, effective. Fistula LLE, +bruit/thrill, dressing CDI. Wound vac 125 continuous suction to left heel- small serosanguinous output. Prn oxy given 1x for left heel pain, effective. Hep drip at 12mL/hr. Tolerating dialysis diet, denies nausea. On hemodialysis. Provider Notification - Magda Piña RN - 12/18/2017 6:30 PM CDT On-call, Dr. Guillen, called in regards to HTN. New orders for prn labetolol and hydralazine Plan of Care - Mona Stein, PT - 12/18/2017 4:52 PM CDT Problem: Patient Care Overview Goal: Plan of Care/Patient Progress Review PT: Orders received, evaluation completed, and treatment initiated. Patient is a 52 y/o male POD # 1L heel I & D, TTWB. Patient lives with his mother in a house with a ramp present to enter/exit and all needs area met on the main level. Patient reports he completed functional mobility independently with use of a cane at baseline. Gas Furnace Installer PT Patient plan for discharge: None stated. Current status: Pt reported L heel pain of 3/10 at rest. Supine <> sit, SBA. Sit <> stand and ambulation of 14 feet with FWW and CGA, cues provided to maintain TTWB. Pt requested to return to supine at end of session due to fatigue. Barriers to return to prior living situation: Unclear level of assist patient's mother can provided upon return home, TTWB restriction, Pain, Level of assist Recommendations for discharge: TCU Rationale for recommendations: Pt would benefit from TCU in order to increase independence and safety while maintaining TTWB restriction. If patient continues to progress towards independence and patient's mother is able to provide physical assist patient may be able to discharge home safely. Entered by: Mona Durham 12/18/2017 4:50 PM Plan of Care - Graham Long, OT - 12/18/2017 1:17 PM CDT Problem: Patient Care Overview Goal: Plan of Care/Patient Progress Review Outcome: Therapy, progress toward functional goals is gradual OT: Pt is a 52 year old male admitted for a left heal debriedment from a nonhealing wound. PMH includes DM, SHIRLEY on Cpap, legally blind, essential HTN, protienuria, obesisty, anemia, othostatis, syncope. Lives in what he says is a single level home with his mother and nephew. Mother takes care of IADLS, pt states he can do his basic ADLS himself. Gas Furnace Installer OT Patient plan for discharge: Unknown at this time. Current status: Initial evaluation complete. Pt sitting up in chair, alert. Inconsistently answeringquestions during interview but however did respond to commands during treatment for grooming tasks. Pt needed setup, verbal cues, and some physical assist to use chapstick and wash his face. Does appear to see some shapes but not responding enough to confirm. Barriers to return to prior living situation: Confusion and current medical condition. Unknown levelof assist by family at home. Recommendations for discharge: Would recommend DC to TCU at this time. If pt improves in functional mobility to follow precautions and family can assist pt may be able to return home with assist of family. Rationale for recommendations: Pt appears below baseline, demonstrates some confusion which may makeit difficult to follow toe touch WB restrictions. Would benefit from daily therapy to increase ability for ADLS and check cognitive skills. Entered by: Graham Long 12/18/2017 1:11 PM Plan of Care - Irina Romero RN - 12/18/2017 1:08 PM CDT Problem: Patient Care Overview Goal: Plan of Care/Patient Progress Review A/O x 3. VSS. Pulses with doppler. Fistula to LLE, dressing intact, +Bruit. L heel ulcer with wound vac @ 125 of suction. No urine output d/t chronic hemodialysis. Tolerating dialysis diet. Denies pain. Up with assist of 1-2 with toe touch only to L. Foot. Patient up in chair most of the shift. Plan of Care - Cecilia Hawkins RN - 12/18/2017 5:35 AM CDT Problem: Renal Insufficiency Comorbidity Goal: Renal Insufficiency Patient comorbidity will be monitored for signs and symptoms of Renal Insufficiency (Chronic) condition. Problems will be absent, minimized or managed by discharge/transition of care. VSS, A/O. Moves well in bed. Wound vac in place. Pulses on left are 2+ doppled. Left leg fistula dressing CDI. Plan for wound vac change on Tuesday. Plan of Care - Irina Romero RN - 12/17/2017 2:55 PM CST Problem: Patient Care Overview Goal: Plan of Care/Patient Progress Review A/O x 3. VSS. Pulses with doppler. Fistula to LLE, dressing intact, +Bruit. L heel ulcer with wound vac @ 125 of suction. No urine output d/t chronic hemodialysis. Tolerating dialysis diet. Denies pain. Pt went for dialysis all morning. Up with assist of 1-2 with toe touch only to L. Foot. PROJECT MANAGER Plan of Care - Esme Reed RN - 12/17/2017 5:42 AM CST Problem: Patient Care Overview Goal: Plan of Care/Patient Progress Review A&Ox4, legally blind. VSS, on RA, using CPAP throughout night. Up w/ SBA, not out of bed this shift, toe touch only to L foot. Dialysis diet. No void d/t hemodialysis. Left L fistula, marked drainage on dressing, +bruit/thrill. L heel ulcer, wound vac on continuous 125, scant amount of serosang drainage. CMS intact pulses w/ Doppler. Denies pain. Infreq nonproductive cough, LS clear. Plan to havedialysis today. PT to eval. D/C pending, nursing will continue to monitor. PROJECT MANAGER Plan of Care - Magda Piña RN - 12/16/2017 11:15 PM CST Problem: Patient Care Overview Goal: Plan of Care/Patient Progress Review Outcome: Improving A/Ox4. AVSS ex HTN; on RA. Fistula in left thigh, +bruit/thrill. Small amount serosanguinous drainage. Wound vac 125 suction to left foot. CMS intact. Pulses dopplerable. Dangled and stood at bedside. Tolerating dialysis diet, big appetite. Saline locked. Legally blind. Anticipating dialysis tomorrow. PROJECT MANAGER Pharmacy-Anticoagulation Service - Angela Kay [facility] - 12/16/2017 4:59 PM CST Clinical Pharmacy - Warfarin Dosing Consult Pharmacy has been consulted to manage this patient???s warfarin therapy. Indication: Other - specify in comments (high risk dialysis graft for thrombosis) Therapy Goal: INR 2-3 Warfarin Prior to Admission: Yes Warfarin WELLNESS NURSE RN Regimen: 5 mg every evening. INR Date Value Ref Range Status 12/16/2017 2.15 (H) 0.86 - 1.14 Final 12/16/2017 6.98 (HH) 0.86 - 1.14 Final Comment: Critical Value called to and read back by ANNA LAMAS AT [address] Guillen - INR this afternoon came back at 2.15 - ok to resume tonight (vs originally intended for tomorrow). Recommend warfarin 2.5 mg today. Pharmacy will monitor Julio Cesar Sandhu daily and order warfarin doses to achieve specified goal. Please contact pharmacy as soon as possible if the warfarin needs to be held for a procedure or if the warfarin goals change. Angela Kay, PharmWilliam PROJECT MANAGER Plan of Care - Twila Mcnulty RN - 12/16/2017 3:21 PM CST Problem: Patient Care Overview Goal: Plan of Care/Patient Progress Review Outcome: No Change A/O x4. VSS on 4L NC; HTN. LS diminished. CMS intact. Left leg site, small SS drainage. Wound vac @ 125. Doppler pulses, +1-2. Tolerating dialysis diet. PROJECT MANAGER Op Note - Rober Saravia MD - 12/16/2017 12:36 PM CST Procedure Date: 12/16/2017 PREOPERATIVE DIAGNOSES: 1. Nonhealing left heel ulcer secondary to arterial insufficiency. 2. 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 3. Outflow stenosis, left ProCol graft/superficial femoral vein anastomosis. PROCEDURES: 1. Operative fistulogram of left thigh ProCol dialysis graft. Angioplasty of outflow venous stenosis(8 x 40 mm Fords balloon). 2. Banding of inflow portion of left thigh ProCol dialysis graft. 3. Full-thickness/subcutaneous excisional debridement, left lateral heel ulcer (5.5 x 3.5 x 3 cm). Application of negative pressure dressing. SURGEON: Rober Saravia MD COB SAWYER: Estrella Guillen MD (vascular fellow) ANESTHESIA: General LMA. PREOPERATIVE MEDICATIONS: Ancef 2 grams IV. INDICATIONS: A 52-year-old patient who is on chronic hemodialysis. He has had multiple access challenges and has a patent left [id number]-uroc popliteal to proximal thigh superficial femoral vein ProColdialysis graft. He has had a history of venous outflow stenosis which have been angioplastied in thepast but not for the last 3 months. He has now developed a heel ulcer that has failed to respond to conservative treatment. Recent angiogram via the fistula revealed only 1-vessel runoff being the anterior tibial-dorsalis pedis artery of the foot. Posterior tibial artery could not be recanalized. However, we felt that he was having decreased flow to this only artery of his foot due to his thigh dialysis graft. We needed to improve the blood flow to his foot for any chance of limb salvage. On 12/07/2017 at the time of his angiogram, outflow volumes in the graft were 3603 mL per minute. Wehope by decreasing this outflow volume, he will have more blood flow down to his foot. Therefore, weplan for banding of the fistula. He also had a recurrent moderate venous outflow stenosis that needed to be corrected that could not be done at the time of his angiogram. OPERATIVE PROCEDURE: The patient had skipped his dialysis yesterday. Fortunately, his potassium was normal at 4.9. He also had stopped his Coumadin, but his INR was still markedly elevated to 6.98. We felt this would not affect our surgical procedure, though we did give vitamin K 10 mg IV to help reverse this. The patient was brought to operating room, induced under general anesthesia. LMA was placed. Calf pneumatic compression boot was used on the right calf with appropriate padding. We prepped the entire left leg and foot, isolating the foot with a bootie due to the necrotic foul-smelling ulcer. FISTULOGRAM: Duplex ultrasound, we identified the fistula as it dove down towards the arterial anastomosis in the distal medial thigh. A vertical incision was made. Electrocautery was used for excellent hemostasis. We easily dissected down to find the dilated ProCol graft that measured at least 12 mm at this level. This was cautiously dissected free and encircled with Silastic vessel. FISTULOGRAM: No heparin was given due to his elevated INR. A 5-0 Prolene pursestring was placed around the ProCol graft. Under direct visualization, a needle was introduced into the graft followed by aguidewire and a 7-Montserratian sheath. A Glidewire was then used under fluoroscopic guidance to pass up beyond the venous anastomosis where the moderate stenosis was appreciated. Fistulogram was performed confirming this was the site of the stenosis. We selected an 8 x 40 mm Fords balloon. This was positioned under fluoroscopic control and the balloon was expanded to 10 mm atmosphere and held for 3 minutes. The balloon was deflated and a repeat fistulogram revealed improvement of the outflow stenosis. Sheath and catheter were removed and the pursestring was tied with absolute hemostasis. BANDING OF FISTULA: We then used a bovine patch and passed this around the fistula approximately 3 cm from the anastomosis (we did not dissect down the anastomosis due to his elevated INR and felt thatwe were at the appropriate position to work). Intraoperative duplex was performed with a calculated volume of 1800 mL per minute (the patient had a lower blood pressure during his anesthesia than previous measurement with him awake following the recent angiogram). We progressively tightened the bovinepatch until our volumes decreased to 629 mL per minute. By doing so, we went from a weaker signal inthe dorsalis pedis artery to a biphasic pulsatile signal. We then oversewed the bovine patch band with a running mattress 4-0 Prolene suture. The band was tacked to the ProCol graft to prevent it from moving with a 5-0 Prolene suture. We rechecked our outflow volume and this remained stable at 629 mL per minute. Good hemostasis was noted. We still had a strong pulse within the graft. Subcutaneous tissue closed in layers with interrupted 2-0 Vicryl sutures. Skin was closed with 4-0 Monocryl in subcuticular fashion. Wound was infiltrated with 0.5% Marcaine for postop analgesia. Steri-Strips, gauze, Tegaderm was applied. HEEL DEBRIDEMENT: We then removed the booty from left heel. The ulcer was obviously necrotic. Using a #10 blade scalpel, a full thickness-subcutaneous excisional debridement was performed. We got down to bleeding viable tissue. This extended down close to the calcaneus but not involving this. Bleedingwas now noted at the edges. Following debridement, this measured 5.5 x 3.5 x 3 cm. Electrocautery was used for hemostasis. Circumferential 0.5% Marcaine block was performed around the heel for postop analgesia. NEGATIVE PRESSURE DRESSING: We used a silver GranuFoam sponge and this got the appropriate size to go into the heel ulcer defect. Overlying adhesive was applied and this was wicked anteriorly until theconnector could be applied and hooked to 125 mm of suction on the VAC machine with a good seal beingnoted. The patient tolerated the procedure well. Estimated blood loss was less than 10 mL. COMPLICATIONS: None. ROBER SARAVIA MD MT: JESSIE Name: JULIO CESAR SANDHU MRN: [id number] Account: [id number] : 1965 Procedure Date: 12/16/2017 Document: [id number] cc: Rober Saravia MD Brief Op Note - Estrella Guillen MD - 12/16/2017 12:27 PM CST [facility] Brief Operative Note Pre-operative diagnosis: NON HEALING LEFT LATERAL HEEL ULCER WITH PAIN DUE TO LEFT LOWER EXTREMITY STEAL SYNDROME Post-operative diagnosis NON HEALING LEFT LATERAL HEEL ULCER WITH PAIN DUE TO LEFT LOWER EXTREMITY STEAL SYNDROME Procedure: Procedure(s): 1) LEFT THIGH AV-GRAFT FISTOGRAM, ANGIOPLASTY OF OUTFLOW VENOUS STENOSIS, BANDING PROCOL AV-GRAFT - Wound Class: I-Clean 2) IRRIGATION AND DEBRIDEMENT LEFT FOOT ULCER, WOUND VAC PLACEMENT - Wound Class: II-Clean Contaminated Surgeon: Rober Saravia MD Assistants(s): Estrella Whitaker) MD Mindy Estimated blood loss: 10 ml Specimens: None Findings: 1) Flow through the AV-graft was 600 mL/min after banding 2) Banding using bovine pericardial patch Estrella Guillen MD (Alex) Vascular Surgery Fellow (z) PROJECT MANAGER documented in this encounter Plan of Treatment Scheduled Referrals Name Type Priority Associated Diagnoses Order S chedule Home care nursing Referral Routine Skin ulcer of left foot Ordered: 12/19/2017 referral with fat layer exposed (H) Home Care PT Referral Referral Routine Skin ulcer of left foot Ordered: 12/19/2017 for Hospital Discharge with fat layer exp osed (H) documented as of this encounter Procedures Procedure Name Priority Date/Time Associated Comments Diagnosis INR Routine 12/19/2017 7:18 AM Results f or this CDT procedure are i n the results section. HEPARIN 10A LEVEL Routine 12/19/2017 7:18 AM Resu lts for this CDT procedure are i n the results section. HEPARIN 10A LEVEL Routine 12/19/2017 1:20 AM Resu lts for this CDT procedure are i n the results section. HEPARIN 10A LEVEL STAT 12/18/2017 3:45 PM Resu lts for this CDT procedure are i n the results section. CBC WITH PLATELETS STAT 12/18/2017 10:25 Resul ts for this AM CDT procedure are i n the results section. INR Routine 12/18/2017 7:01 AM Results f or this CDT procedure are i n the results section. CBC WITH PLATELETS Routine 12/18/2017 7:01 AM Res ults for this CDT procedure are i n the results section. GLUCOSE BY METER Routine 12/17/2017 12:47 Results for this PM HVAC PROJECT MANAGER procedure are i n the results section. BASIC METABOLIC PANEL STAT 12/17/2017 8:30 AM Results for this HVAC PROJECT MANAGER procedure are i n the results section. CBC WITH PLATELETS STAT 12/17/2017 8:30 AM Res ults for this HVAC PROJECT MANAGER procedure are i n the results section. INR Routine 12/17/2017 7:05 AM Results f or this HVAC PROJECT MANAGER procedure are i n the results section. INR Routine 12/16/2017 3:09 PM Results f or this HVAC PROJECT MANAGER procedure are i n the results section. GLUCOSE BY METER Routine 12/16/2017 12:32 Results for this PM HVAC PROJECT MANAGER procedure are i n the results section. XR SURGERY NIHARIKA FLUORO Routine 12/16/2017 11:40 R esults for this LESS THAN 5 MIN W AM HVAC PROJECT MANAGER procedure are in STILLS the results section. IRRIGATION AND 12/16/2017 10:16 NON HEALING LEFT DEBRIDEMENT, FOOT AM HVAC PROJECT MANAGER LATERAL HEEL ULCER WITH PAIN REVISION, 12/16/2017 10:16 NON HEALING LEFT ARTERIOVENOUS FISTULA, AM HVAC PROJECT MANAGER LATERAL HEEL ULCER LOWER EXTREMITY WITH PAIN INR STAT 12/16/2017 9:25 AM Results f or this HVAC PROJECT MANAGER procedure are i n the results section. BASIC METABOLIC PANEL STAT 12/16/2017 9:25 AM Results for this HVAC PROJECT MANAGER procedure are i n the results section. LAB RESULT - HIM SCAN 12/06/2017 12:00 AM HVAC PROJECT MANAGER documented in this encounter Results Heparin Xa (10a) Level (12/19/2017 7:18 AM CDT) athologist Signature Heparin 10A 0.23 IU/mL 12/19/2017 [facility] Level 7:42 AM CDT [facility] Comment: Therapeutic Range: ??UFH: ?? 0.15-0.35 IU/mL for low ? intensity dosing ? 0.30-0.70 IU/mL for high ? intensity dosing for ? DVT and PE ??Enoxaparin: If administered ? once daily with dose ? 1.5mg/k.0-2.0 IU/mL ?If administered ? twice daily with dose ? 1mg/k.60-1.0 IU/mL Specimen Anatomical Collection Method Collection Time Receive d Time (Source) Location / / Volume Laterality Blood specimen 12/19/2017 7:18 AM 018 7:25 (specimen) CDT AM CDT Estrella Guillen MD LAB - BLOOD ORDERABLES Performing Organization Address City/State/ZIP Code Phon e Number M [facility] [address] [address] [facility] [address] [address], [place] [phone] (ABNORMAL) INR (12/19/2017 7:18 AM CDT) P athologist Signature INR 2.13 (H) 0.86 - 1.14 12/19/2017 [place] 7:42 AM CDT [facility] Specimen Anatomical Collection Method Collection Time Receive d Time (Source) Location / / Volume Laterality Blood specimen 12/19/2017 7:18 AM 018 7:25 (specimen) CDT AM CDT Estrella Guillen MD LAB - BLOOD ORDERABLES Performing Organization Address City/State/ZIP Code Phon e Number M [facility] [address] [phone] [facility] [address] [address], [place] [phone] Heparin Xa (10a) Level (12/19/2017 1:20 AM CDT) P athologist Signature Heparin 10A 0.32 IU/mL 12/19/2017 [place] Level 1:41 AM CDT [facility] Comment: Therapeutic Range: ??UFH: ?? 0.15-0.35 IU/mL for low ? intensity dosing ? 0.30-0.70 IU/mL for high ? intensity dosing for ? DVT and PE ??Enoxaparin: If administered ? once daily with dose ? 1.5mg/k.0-2.0 IU/mL ?If administered ? twice daily with dose ? 1mg/k.60-1.0 IU/mL Specimen Anatomical Collection Method Collection Time Receive d Time (Source) Location / / Volume Laterality Blood specimen 12/19/2017 1:20 AM 018 1:25 (specimen) CDT AM CDT Estrella Guillen MD LAB - BLOOD ORDERABLES Performing Organization Address City/State/ZIP Code Phon e Number M [facility] [address] [phone] [facility] [address] [address], [place] [phone] Heparin Xa (10a) Level (12/18/2017 3:45 PM CDT) athologist Signature Heparin 10A <0.10 IU/mL 12/18/2017 [facility] 4:32 PM CDT [facility] Comment: Therapeutic Range: ??UFH: ?? 0.15-0.35 IU/mL for low ? intensity dosing ? 0.30-0.70 IU/mL for high ? intensity dosing for ? DVT and PE ??Enoxaparin: If administered ? once daily with dose ? 1.5mg/k.0-2.0 IU/mL ?If administered ? twice daily with dose ? 1mg/k.60-1.0 IU/mL Specimen Anatomical Collection Method Collection Time Receive d Time (Source) Location / / Volume Laterality Blood specimen 12/18/2017 3:45 PM 018 3:59 (specimen) CDT PM CDT Estrella Guillen MD LAB - BLOOD ORDERABLES Performing Organization Address City/State/ZIP Code Phon e Number M [facility] [address] [phone] [facility] [address] [address], [place] [phone] (ABNORMAL) CBC with platelets (12/18/2017 10:25 AM CDT) Analysis Performed At Patho logist Time Signature WBC 5.5 4.0 - 11.0 12/18/2017 [facility] 10e9/L 10:[address] [facility] RBC Count 3.08 (L) 4.4 - 5.9 12/18/2017 [facility] 10e12/L 10:[address] [facility] Hemoglobin 8.3 (L) 13.3 - 12/18/2017 [facility] 17.7 g/dL 10:[address] [facility] Hematocrit 26.7 (L) 40.0 - 12/18/2017 [facility] 53.0 % 10:[address] [facility] MCV 87 78 - 100 12/18/2017 [facility] fl 10:[address] [facility] MCH 26.9 26.5 - 12/18/2017 [facility] 33.0 pg 10:[address] [facility] MCHC 31.1 (L) 31.5 - 12/18/2017 [facility] 36.5 g/dL 10:[address] [facility] RDW 15.7 (H) 10.0 - 12/18/2017 [facility] 15.0 % 10:[address] [facility] Platelet Count 171 150 - 450 12/18/2017 [place] 10e9/L 10:[address] [facility] Specimen Anatomical Collection Method Collection Time Receive d Time (Source) Location / / Volume Laterality Blood specimen 12/18/2017 10:25 8 (specimen) AM CDT 10:36 AM CDT Estrella Guillen MD LAB - BLOOD ORDERABLES Performing Organization Address City/State/ZIP Code Phon e Number M [facility] [address] [phone] [facility] [address] [address], [place] [phone] (ABNORMAL) INR (12/18/2017 7:01 AM CDT) P athologist Signature INR 1.57 (H) 0.86 - 1.14 12/18/2017 [facility] 7:[address] [facility] Specimen Anatomical Collection Method Collection Time Receive d Time (Source) Location / / Volume Laterality Blood specimen 12/18/2017 7:01 AM 018 7:29 (specimen) CDT AM CDT Estrella Guillen MD LAB - BLOOD ORDERABLES Performing Organization Address City/State/ZIP Code Phon e Number M [facility] [address] [place] [address] [facility] [address] [place] [address], [place] [phone] (ABNORMAL) CBC with platelets (12/18/2017 7:01 AM CDT) Analysis Performed At Patho logist Time Signature WBC 5.1 4.0 - 11.0 12/18/2017 [facility] 10e9/L 7:[address] [facility] RBC Count 3.03 (L) 4.4 - 5.9 12/18/2017 [facility] 10e12/L 7:[address] [facility] Hemoglobin 8.2 (L) 13.3 - 12/18/2017 [facility] 17.7 g/dL 7:[address] [facility] Hematocrit 26.2 (L) 40.0 - 12/18/2017 [facility] 53.0 % 7:[address] [facility] MCV 87 78 - 100 12/18/2017 [facility] fl 7:[address] [facility] MCH 27.1 26.5 - 12/18/2017 [facility] 33.0 pg 7:[address] [facility] MCHC 31.3 (L) 31.5 - 12/18/2017 [facility] 36.5 g/dL 7:[address] [facility] RDW 15.9 (H) 10.0 - 12/18/2017 [facility] 15.0 % 7:[address] [facility] Platelet Count 168 150 - 450 12/18/2017 [facility] 10e9/L 7:[address] [facility] Specimen Anatomical Collection Method Collection Time Receive d Time (Source) Location / / Volume Laterality Blood specimen 12/18/2017 7:01 AM 018 7:29 (specimen) CDT AM CDT Chi Brunson MD LAB - BLOOD ORDERABLES Performing Organization Address City/State/ZIP Code Phon e Number M [facility] [address] [place] [address] [phone] [facility] [address] [place] [address], [place] [phone] (ABNORMAL) Glucose by meter (12/17/2017 12:47 PM HVAC PROJECT MANAGER) P athologist Signature Glucose 119 (H) 70 - 99 12/17/2017 POINT OF CARE mg/dL 1:04 PM HVAC PROJECT MANAGER TEST, GLUCOSE Specimen Anatomical Collection Method Collection Time Receive d Time (Source) Location / / Volume Laterality 12/17/2017 12:47 12/17/2017 1:04 PM HVAC PROJECT MANAGER PM HVAC PROJECT MANAGER Rober Saravia MD LAB - BEAKER POCT Performing Organization Address City/State/ZIP Code Phon e Number [facility] POINT OF CARE TEST, GLUCOSE POINT OF CARE TEST, GLUCOSE (ABNORMAL) Basic metabolic panel (12/17/2017 8:30 AM HVAC PROJECT MANAGER) Patholo gist Method Time Signature Sodium 125 (L) 133 - 144 12/17/2017 [facility] mmol/L 11:03 AM [facility] Potassium 5.1 3.4 - 5.3 12/17/2017 [facility] mmol/L 11:03 AM [facility] Chloride 84 (L) 94 - 109 12/17/2017 [facility] mmol/L 11:03 AM [facility] Carbon Dioxide 21 20 - 32 12/17/2017 [facility] mmol/L 11:03 AM [facility] Anion Gap 20 (H) 3 - 14 12/17/2017 [facility] mmol/L 11:03 AM [facility] Glucose 100 (H) 70 - 99 12/17/2017 [facility] mg/dL 11:03 AM [facility] Urea Nitrogen 114 (H) 7 - 30 12/17/2017 [facility] mg/dL 11:03 AM [facility] Creatinine 16.10 (H) 0.66 - 12/17/2017 [facility] 1.25 mg/dL 11:03 AM [facility] GFR Estimate 3 (L) >60 12/17/2017 [place] mL/min/1.7 11:[address] Comment: Non GFR Calc GFR Estimate If 4 (L) >60 mL/min/1.7m2 12/17/2017 11:03 AM [facility] Comment: GFR Calc Calcium 9.0 8.5 - 10.1 mg/dL 12/17/2017 11:03 AM [facility] Specimen Anatomical Collection Method Collection Time Receive d Time (Source) Location / / Volume Laterality Blood specimen 12/17/2017 8:30 AM 018 (specimen) HVAC PROJECT MANAGER 10:28 AM HVAC PROJECT MANAGER Chi Brunson MD LAB - BLOOD ORDERABLES Performing Organization Address City/State/ZIP Code Phon e Number M [facility] [address] [phone] [facility] [address] [address], [facility] [phone] (ABNORMAL) CBC with platelets (12/17/2017 8:30 AM HVAC PROJECT MANAGER) Analysis Performed At Patho logist Time Signature WBC 6.6 4.0 - 11.0 12/17/2017 [facility] 10e9/L 10:37 AM [facility] RBC Count 3.26 (L) 4.4 - 5.9 12/17/2017 [facility] 10e12/L 10:37 AM [facility] Hemoglobin 8.7 (L) 13.3 - 12/17/2017 [facility] 17.7 g/dL 10:37 AM [facility] Hematocrit 27.5 (L) 40.0 - 12/17/2017 [facility] 53.0 % 10:37 AM [facility] MCV 84 78 - 100 12/17/2017 [facility] fl 10:37 AM [facility] MCH 26.7 26.5 - 12/17/2017 [facility] 33.0 pg 10:37 AM [facility] MCHC 31.6 31.5 - 12/17/2017 [facility] 36.5 g/dL 10:37 AM [facility] RDW 15.9 (H) 10.0 - 12/17/2017 [facility] 15.0 % 10:37 AM [facility] Platelet Count 223 150 - 450 12/17/2017 [place] 10e9/L 10:37 AM [facility] Specimen Anatomical Collection Method Collection Time Receive d Time (Source) Location / / Volume Laterality Blood specimen 12/17/2017 8:30 AM 018 (specimen) HVAC PROJECT MANAGER 10:28 AM HVAC PROJECT MANAGER Chi Brunson MD LAB - BLOOD ORDERABLES Performing Organization Address City/State/ZIP Code Phon e Number M [facility] [address] [place] [address] [place] [id number] [place] [address], [place] [phone] (ABNORMAL) INR (12/17/2017 7:05 AM HVAC PROJECT MANAGER) P athologist Signature INR 1.54 (H) 0.86 - 1.14 12/17/2017 [place] 7:44 AM [facility] Specimen Anatomical Collection Method Collection Time Receive d Time (Source) Location / / Volume Laterality Blood specimen 12/17/2017 7:05 AM 018 7:29 (specimen) HVAC PROJECT MANAGER AM HVAC PROJECT MANAGER Estrella Guillen MD LAB - BLOOD ORDERABLES Performing Organization Address City/[facility]/ZIP Code Phon e Number M [facility] [address] [place] [address] [facility] [address] [place] [address], [place] [phone] (ABNORMAL) INR (12/16/2017 3:09 PM HVAC PROJECT MANAGER) P athologist Signature INR 2.15 (H) 0.86 - 1.14 12/16/2017 [place] 4:34 PM [facility] Specimen Anatomical Collection Method Collection Time Receive d Time (Source) Location / / Volume Laterality Blood specimen 12/16/2017 3:09 PM 018 3:40 (specimen) HVAC PROJECT MANAGER PM HVAC PROJECT MANAGER Estrella Guillen MD LAB - BLOOD ORDERABLES Performing Organization Address City/State/ZIP Code Phon e Number [facility] [address] [place] [address] [facility] [address] [address], [place] [phone] (ABNORMAL) Glucose by meter (12/16/2017 12:32 PM HVAC PROJECT MANAGER) athologist Signature Glucose 111 (H) 70 - 99 12/16/2017 POINT OF CARE mg/dL 12:43 PM HVAC PROJECT MANAGER TEST, GLUCOSE Specimen Anatomical Collection Method Collection Time Receive d Time (Source) Location / / Volume Laterality 12/16/2017 12:32 12/16/2017 PM HVAC PROJECT MANAGER 12:43 PM HVAC PROJECT MANAGER Rober Saravia MD [facility] POCT Performing Organization Address City/State/ZIP Code Phon e Number [facility] POINT OF CARE TEST, GLUCOSE POINT OF CARE TEST, GLUCOSE XR Surgery NIHARIKA L/T 5 Min Fluoro w Stills (12/16/2017 11:40 AM HVAC PROJECT MANAGER) Anatomical Region Laterality Modality Abdomen/Pelvis Radio Fluoroscopy Specimen (Source) Anatomical Location Collection Method / Collectio n Time Received Time / Laterality Volume Impressions 12/16/2017 5:51 PM HVAC PROJECT MANAGER IMPRESSION: Three spot fluoroscopic images obtained intraoperatively during surgical repair of a thigh fistul a. The fistula is for dialysis. Total fluoroscopic time 1.4 mi nutes. PATRICIA OLVERA MD Narrative 12/16/2017 5:51 PM HVAC PROJECT MANAGER SURGERY C-ARM FLUOROSCOPY LESS THAN 5 MINUTES WITH STILLS ??12/16/2017 11:40 AM HISTORY: Left femoral artery. COMPARISON: November 19, 2015. Procedure Note Patricia Olvera MD - 12/16/2017 SURGERY C-ARM FLUOROSCOPY LESS THAN 5 GA NUTES WITH STILLS 12/16/2017 11:40 AM HISTORY: Left femoral artery. COMPARISON: November 19, 2015. IMPRESSION: Three spot fluoroscopic imag es obtained intraoperatively during surgical repair of a thigh fistul a. The fistula is for dialysis. Total fluoroscopic time 1.4 mi nutes. PATRICIA OLVERA MD Rober Saravia MD IMG DIAGNOSTIC IMAGING ORDER NADIA (ABNORMAL) INR (12/16/2017 9:25 AM HVAC PROJECT MANAGER) athologist Signature INR 6.98 (HH) 0.86 - 1.14 12/16/2017 [facility] 9:53 AM [facility] Comment: Critical Value called to and read back Cheo CRUZ PREOP AT 0953 EJV Specimen Anatomical Collection Method Collection Time Receive d Time (Source) Location / / Volume Laterality Blood specimen 12/16/2017 9:25 AM 018 9:33 (specimen) HVAC PROJECT MANAGER AM HVAC PROJECT MANAGER Rober Saravia MD LAB - BLOOD ORDERABLES Performing Organization Address City/State/ZIP Code Phon e Number M [facility] [address] [place] [address] [facility] [address] [place] [address], [place] [phone] (ABNORMAL) Basic metabolic panel (12/16/2017 9:25 AM HVAC PROJECT MANAGER) Patholo gist Method Time Signature Sodium 129 (L) 133 - 144 12/16/2017 [facility] mmol/L 9:51 AM [facility] Potassium 4.9 3.4 - 5.3 12/16/2017 [facility] mmol/L 9:51 AM [facility] Chloride 88 (L) 94 - 109 12/16/2017 [facility] mmol/L 9:51 AM [facility] Carbon Dioxide 25 20 - 32 12/16/2017 [facility] mmol/L 9:51 AM [facility] Anion Gap 16 (H) 3 - 14 12/16/2017 [facility] mmol/L 9:51 AM [facility] Glucose 87 70 - 99 12/16/2017 [facility] mg/dL 9:51 AM [facility] Urea Nitrogen 90 (H) 7 - 30 12/16/2017 [facility] mg/dL 9:51 AM [facility] Creatinine 15.00 (H) 0.66 - 12/16/2017 [facility] 1.25 mg/dL 9:51 AM [facility] GFR Estimate 3 (L) >60 12/16/2017 [facility] mL/min/1.7 9:[address] Comment: Non GFR Calc GFR Estimate If 4 (L) >60 mL/min/1.7m2 12/16/2017 9:51 A M [facility] Comment: GFR Calc Calcium 9.3 8.5 - 10.1 mg/dL 12/16/2017 9:51 AM [facility] Specimen Anatomical Collection Method Collection Time Receive d Time (Source) Location / / Volume Laterality Blood specimen 12/16/2017 9:25 AM 018 9:33 (specimen) HVAC PROJECT MANAGER AM HVAC PROJECT MANAGER Rober Saravia MD LAB - BLOOD ORDERABLES Performing Organization Address City/State/ZIP Code Phon e Number M [facility] [address] [place] [address] [facility] [address] [place] [address], [place] [phone] LAB RESULT - HIM SCAN (12/06/2017 12:00 AM HVAC PROJECT MANAGER) Specimen (Source) Anatomical Location Collection Method / Collectio n Time Received Time / Laterality Volume 12/06/2017 Narrative This result has an attachment that is no t available. Provider Outside NON-BEAKER LAB TESTING documented in this encounter Visit Diagnoses Not on filedocumented in this encounter Administered Medications Inactive Administered Medications - up to 3 most recent administrations Medication Order MAR Action Action Date Dose Rate Site acetaminophen (TYLENOL) tablet 650 Given 12/19/2017 6:51 AM CDT 650 mg mg 650 mg, Oral, EVERY 4 HOURS PRN, other, multimodal surgical pain management along with NSAIDS and opioid medication as indicated based on pain control and physical function., Starting on Tue12/19/17 at 0000, May give first dose 4 hours after last scheduled dose of acetaminophen Maximum acetaminophen dose from all sources = 75 mg/kg/day not to exceed 4 grams/day., Post-procedure amLODIPine (NORVASC) tablet 10 mg Given 12/19/2017 10:28 AM CDT 10 mg 10 mg, Oral, FOUR TIMES WEEKLY (Once per day on Sun Tue), First dose on 12/18/17 at 0800, On NON-dialysis days. Given 12/18/2017 9:06 AM CDT 10 mg atorvastatin (LIPITOR) tablet 20 mg Given 12/18/2017 7:25 PM CDT 20 mg 20 mg, Oral, EVERY EVENING, First dose on Tue12/16/17 at 2000 Given 12/17/2017 8:48 PM HVAC PROJECT MANAGER 20 mg Given 12/16/2017 8:38 PM HVAC PROJECT MANAGER 20 mg bisacodyl (DULCOLAX) EC tablet 10 mg Given 12/18/2017 9:07 AM CDT 10 mg 10 mg, Oral, FOUR TIMES WEEKLY (Once per day on Tue), First dose on 12/17/17 at 0800 Given 12/17/2017 12:56 PM HVAC PROJECT MANAGER 10 mg bupivacaine (MARCAINE) Given 12/16/2017 12:08 PM 30 mLs Operative Site/Surgical injection 0.5% HVAC PROJECT MANAGER Site PRN, Starting on Tue12/16/17 at 1208, Intra-procedure calcium acetate (PHOSLO) capsule 1,334 m g Given 12/19/2017 11:45 AM CDT 1,334 mg 1,334 mg, Oral, 3 TIMES DAILY WITH MEALS, First dose on Tue12/16/17 at 1800 Given 12/19/2017 9:52 AM CDT 1,334 mg Given 12/18/2017 6:07 PM CDT 1,334 mg cholecalciferol (vitamin D3) tablet Given 12/18/2017 7:25 PM CDT 2,000 Units 2,000 Units 2,000 Units, Oral, EVERY EVENING, First dose on Tue12/16/17 at 2000 Given 12/17/2017 8:48 PM HVAC PROJECT MANAGER 2,000 Units Given 12/16/2017 8:38 PM HVAC PROJECT MANAGER 2,000 Units heparin 10,000 units in Given 12/16/2017 11:03 AM 1,000 mLs Operative 1000 mL 0.9% sodium HVAC PROJECT MANAGER Site/ Surgical Site chloride PRN, Starting on Tue12/16/17 at 1103, Intra-procedure hydrALAZINE (APRESOLINE) injection 10 mg Given 12/19/2017 6:54 AM CDT 10 mg 10 mg, Intravenous, EVERY 4 HOURS PRN, high blood pressure, For SBP > 140, Administer over 1 Minutes, Starting on Tue12/18/17 at 1827, For ordered doses up to 40 mg, give IV Push undiluted over 1 minute. Given 12/19/2017 1:12 AM CDT 10 mg iopamidol (ISOVUE-300) IV Given 12/16/2017 12:09 PM 35 mLs Operative Site/Surgical solution 61% HVAC PROJECT MANAGER Site PRN, Starting on Tue12/16/17 at 1209, Intra-procedure labetalol (NORMODYNE/TRANDATE) injection 20 mg Given 12/18/2017 6:46 PM CDT 20 mg 20 mg, Intravenous, EVERY 4 HOURS PRN, high blood pressure, For SBP > 140 and HR > 60. DOn't give if HR < 60., Administer over 2-8 Minutes, Starting on Tue12/18/17 at 1827, For ordered doses up to 80 mg, give IV Push undiluted. Give each 20 mg over 2 minutes. lisinopril (PRINIVIL/ZESTRIL) tablet 40 mg Given 12/19/2017 9:54 AM CDT 40 mg 40 mg, Oral, DAILY, First dose on 12/17/17 at 0900 Given 12/18/2017 9:01 AM CDT 40 mg Given 12/17/2017 12:52 PM HVAC PROJECT MANAGER 40 mg metoprolol tartrate (LOPRESSOR) tablet 2 00 mg Given 12/19/2017 9:53 AM CDT 200 mg 200 mg, Oral, USER SPECIFIED (2 times per day on Sun Tue Wed Tue), First dose on Tue12/18/17 at 0800, Takes 200mg BID on Non-Dialysis days (, Tue, Tue, Tue) Given 12/18/2017 7:25 PM CDT 200 mg Given 12/18/2017 9:01 AM CDT 200 mg ondansetron (ZOFRAN) injection 4 mg 4 mg, Intravenous, EVERY 6 HOURS PRN, nausea, vomiting , Administer over 2-5 Minutes, Starting on Tue12/16/17 at 1403, This is Step 1 of nausea and vomiting management. If nausea not resolved in 15 minutes, go t o Step 2 prochlorperazine (COMPAZINE). Irritant. For ordered doses up to 4 mg, give IV Push undiluted over 2-5 minutes., Post-procedure ondansetron (ZOFRAN-ODT) ODT tab 4 mg 4 mg, Oral, EVERY 6 HOURS PRN, nausea, v omiting, Starting on Tue12/16/17 at 1403, This is Step 1 of nausea and [...] then swallow with saliva; liquid not required ., Post-procedure oxyCODONE IR (ROXICODONE) tablet 5-10 mg Given 12/19/2017 3:27 PM CDT 5 mg 5-10 mg, Oral, EVERY 4 HOURS PRN, other, pain control or improvement in physical function. Hold dose for analgesic side effects., Starting on Tue12/16/17 at 1403, Start with the lowest dose. May adjust dose by 5 mg every 4 hours as needed for pain control or improvement in physical function. Notify provider to assess for uncontrolled pain or analgesic side effects. Hold while on [employer] SUPER[employer] or with regular IV opioid dosing. Maximum total is 60 mg in 24 hours., Post-procedure Given 12/19/2017 12:55 AM CDT 5 mg Given 12/18/2017 6:53 PM CDT 5 mg senna-docusate (SENOKOT-S;PERICOLACE) Given 12/17/2017 12:52 PM HVAC PROJECT MANAGER 1 tablet 8.6-50 MG per tablet 1 tablet 1 tablet, Oral, 2 TIMES DAILY, First dose on Tue12/16/17 at 2100, If no bowel movement in 24 hours, increase to 2 tablets PO. Hold for loose stools., Post-procedure Given 12/16/2017 8:38 PM HVAC PROJECT MANAGER 1 tablet senna-docusate (SENOKOT-S;PERICOLACE) Given 12/19/2017 9:55 AM C DT 2 tablets 8.6-50 MG per tablet 2 tablet 2 tablet, Oral, 2 TIMES DAILY, First dose on Tue12/16/17 at 2100, Hold for loose stools., Post-procedure Given 12/18/2017 7:25 PM CDT 2 tablets Given 12/18/2017 9:00 AM CDT 2 tablets sodium chloride (PF) 0.9% PF flush 3 mL Given 12/19/2017 6:55 AM CDT 3 mLs 3 mL, Intracatheter, EVERY 1 HOUR PRN, line flush, for peripheral IV flush post IV meds, Starting on Tue12/16/17 at 1403, Post-procedure Given 12/18/2017 6:46 PM CDT 3 mLs sodium chloride (PF) 0.9% PF flush 3 mL Given 12/19/2017 2:32 PM CDT 3 mLs 3 mL, Intracatheter, EVERY 8 HOURS, First dose on Tue12/16/17 at 1415, And Q1H PRN, to lock peripheral IV dormant line., Post-procedure Given 12/18/2017 9:02 AM CDT 3 mLs Given 12/18/2017 5:12 AM CDT 3 mLs sodium chloride 0.9% Given 12/16/2017 11:04 AM 1,000 mLs Operative (bottle) irrigation HVAC PROJECT MANAGER Site/Surgical S ite PRN, Starting on Tue12/16/17 at 1104, Intra-procedure warfarin (COUMADIN) tablet 4 mg 4 mg, Oral, ONCE AT 6PM, On Tue12/19/17 at 1800, For 1 dose, Pharmacist Dose per: Warfarin Dosing Service. documented in this encounter Active and Recently Administered Medications Due to Daylight Saving Time, this section may contain times in both HVAC PROJECT MANAGER and CDT. Scheduled Medication Order 12/17/2017 12/18/2017 12/19/2017 0.9% sodium chloride BOLUS (COMPLETED) 0858 (New Bag - Provider: Angie Gotti RN) Intravenous, 250 mL, ONCE IN DIALYSIS, S at 12/17/17 at 0730, For 1 dose, For patient prime during dialysis, Dialysis acetaminophen (TYLENOL) tablet 975 mg (COMPLETED) 0610 (Given - Provider: Esme Reed RN)1351 (Given - Provider: Irina Romero RN) 0021 (Given - Provider: Cecilia Hawkins RN)0901 (Given - Provider: Irina Romero RN - Comment: Denies pain)1625 (Given - Provider: Magda Piña, LINDA) 0048 (Given - Provider: Sharita Oswald RN)1145 (Given - Provider: Steven Sosa RN) 975 mg, Oral, EVERY 8 HOURS, First dose on Tue12/16/17 at 1430, For 3 days, Do not use if patient has an active opioid/acetaminophen combined analgesic product ordered for pain. Maximum acetaminophen dos e from all sources = 75 mg/kg/day not to exceed 4 grams/day., Po st-procedure amLODIPine (NORVASC) tablet 10 mg 0906 (Given - Provider: Irina Romero RN) 1028 (Given - Provider: Steven Sosa RN) 10 mg, Oral, FOUR TIMES WEEKLY (Once per day on Sun Tue), First dose on 12/18/17 at 0800, On NON-dialysis days. atorvastatin (LIPITOR) tablet 20 mg 2047 (Given - Prov ider: Cecilia Hawkins RN) 1924 (Given - Provider: Magda Piña RN) 20 mg, Oral, EVERY EVENING, First dose on Tue12/16/17 at 2000 bisacodyl (DULCOLAX) EC tablet 10 mg 1256 (Given - Provider: Irina Romero RN) 0907 (Given - Provider: Irina Romero RN) 10 mg, Oral, FOUR TIMES WEEKLY (Once per day on Sun Tue), First dose on 12/17/17 at 0800 calcium acetate (PHOSLO) capsule 1,334 mg 0900 (Not Gi corey - Provider: Irina Romero RN - Reason: Patient not available)1251 (Given - Provider: Irina Romero RN)1358 (Canceled Entry - Provider: Irina Romero RN)1903 (Given - Provider: Vu Riggins RN) 0901 (Given - Provider: Elva Ordonez N)1135 (Given - Provider: Irina Romero RN)1807 (Given - Provider: Magda Piña, LINDA) 0952 (Given - Provider: Steven Sosa, LINDA )1145 (Given - Provider: Steven Sosa, LINDA) 1,334 mg, Oral, 3 TIMES DAILY WITH MEALS, First dose on Tue at 1800 cholecalciferol (vitamin D3) tablet 2,000 Units 2047 ( Given - Provider: Cecilia Hawkins RN) 1924 (Given - Provider: Magda Piña RN) 2,000 Units, Oral, EVERY EVENING, First dose on Tue12/16/17 at 20 00 doxercalciferol (HECTOROL) injection 4.5 mcg (COMPLETE D) 0900 (Given - Provider: Angie Gotti, LINDA) 4.5 mcg, Intravenous, ONCE IN DIALYSIS, 12/17/17 at 0730, For 1 dose, GIVE DURING DIALYSIS, Dialysis epoetin mauricio (EPOGEN/PROCRIT) injection 6,000 Units (C OMPLETED) 0956 (Given - Provider: Angie Gotti, RN) 6,000 Units, Intravenous, ONCE, Sat 12/17 at 0730, For 1 dose, Give during dialysis. For ordered doses up to 500 units/kg, give IV Push undiluted over 1 minute., Dialysis heparin (porcine) injection 500 Units (COMPLETED) 09 (Given - Provider: Angie Gotti RN) 500 Units, Hemodialysis Machine, ONCE IN DIALYSIS, 12/17/17 at 0730, For 1 dose, LOADING DOSE Administer loading dose prior to heparin infusion. PRE DIALYSIS RUN Dialysis, Dialysis heparin Loading Dose bolus dose from infusion pump 3,000 Uni ts (COMPLETED) 1831 (Given - Provider: Magda Piña RN) 3,000 Units, Intravenous, ONCE, Sun 12/18 at 1815, For 1 dose, Nurse to administer dose from existing infusion. If no infusion bag or syringe for this order is available, contact pharmacist to re-enter medication order. heparin Loading Dose bolus dose from infusion pump 4,500 Uni ts (COMPLETED) 1026 (Given - Provider: Irina Romero RN) 4,500 Units, Intravenous, ONCE, Sun 12/18 at 1015, For 1 dose, Nurse to administer dose from existing infusion. If no infusion bag or syringe for this order is available, contact pharmacist to re-enter medication order. lisinopril (PRINIVIL/ZESTRIL) tablet 40 mg 1252 (Given - Provider: Irina Romero RN) 0901 (Given - Provider: Irina Romero RN) 0954 (Given - Provider: Steven Sosa, LINDA) 40 mg, Oral, DAILY, First dose on 12/17/17 at 0900 metoprolol tartrate (LOPRESSOR) tablet 200 mg 0901 (Given - Provider: Irina Romero RN)1925 (Given - Provider: Magda Piña RN) 0953 (Given - Provider: Steven Sosa RN) 200 mg, Oral, USER SPECIFIED (2 times pe r day on Sun Tue), First dose on 12/18/17 at 0800, Takes 200mg BID on Non-Dialysis days (, Tue, Tue, Tue) senna-docusate (SENOKOT-S;PERICOLACE) 8. 6-50 MG per tablet 1 tablet(Linked Group 1) 1252 (Given - Provider: Elva Ordonez)2047 (See Alternative - Provider: Cecilia Hawkins RN) 09 (See Alternative - Provider: Irina Romero RN)192 (See Alternative - Provider: Magda Piña RN)2100 (See Alternative - Provider: Magda Piña RN) 0955 (See Alternative - Provider: Steven Sosa RN) 1 tablet, Oral, 2 TIMES DAILY, First dos e on Tue12/16/17 at 2100, If no bowel movement in 24 hours, increase to 2 tablets PO. Hold for loose stools., Post-procedure senna-docusate (SENOKOT-S;PERICOLACE) 8. 6-50 MG per tablet 2 tablet(Linked Group 1) 1252 (See Alternative - Provider: Irina Romero RN)2047 (Given - Provider: Cecilia Hawkins RN) 0900 (Given - Provider: Elva Ordonez)192 (Given - Provider: Magda Piña RN)2100 (Canceled Entry - Provider: Magda Piña RN) 0955 (Given - Provider: Steven Sosa RN ) 2 tablet, Oral, 2 TIMES DAILY, First dos e on Tue12/16/17 at 2100, Hold for loose stools., Post-procedure sodium chloride (PF) 0.9% PF flush 3 mL 0610 (Given - Provider: Esme Reed RN)1352 (Given - Provider: Irina Romero RN)2048 (Given - Provider: Cecilia Hawkins RN)2215 (Canceled Entry - Provider: Cecilia Hawkins RN) 0512 (Given - Provider: Cecilia Hawkins RN)0902 (Given - Provider: Irina Romero RN)1318 (Not Given - Provider: Irina Romero RN - Reason: IV Infusing)2115 (Not Given - Provider: Magda Piña RN - Reason: IV Infusing) 0634 (Not Given - Provider: Love Lynch RN - Reason: IV Infusing)1432 (Given - Provider: Steven Sosa, LINDA) 3 mL, Intracatheter, EVERY 8 HOURS, Firs t dose on Tue12/16/17 at 1415, And Q1H PRN, to lock peripheral IV dormant line., Post-procedure warfarin (COUMADIN) tablet 4 mg (COMPLETED) 1902 (Give n - Provider: Vu Riggins, LINDA) 4 mg, Oral, ONCE AT 6PM, 12/17/17 at 1800, For 1 dose, Pharmacist Dose per: Warfarin Dosing Service. warfarin (COUMADIN) tablet 4 mg 4 mg, Oral, ONCE AT 6PM, 12/19/17 at 1800, For 1 dose, Pharmacist Dose per: Warfarin Dosing Service. warfarin (COUMADIN) tablet 5 mg (COMPLETED) 1806 (Given - Provider: Magda Piña RN) 5 mg, Oral, ONCE AT 6PM, 12/18/17 at 1800, For 1 dose, Pharmacist Dose per: Warfarin Dosing Service. Continuous Medication Order 12/17/2017 12/18/2017 12/19/2017 heparin 10,000 units/10 mL infusion (DIALYSIS USE) (CA NCELED) 0901 (New Bag - Provider: Angie Gotti, LINDA) 500 Units/hr (0.5 mL/hr), Hemodialysis M alicia, at 0.5 mL/hr, CONTINUOUS, Starting 12/17/17 at 0730, DURING DIALYSIS TREATMENT, Dialysis heparin infusion 25,000 units in 0.45% NaCl 250 mL (CANCELED ) 1027 (New Bag - Provider: Irina Romero RN)1748 (Rate/Dose Verify - Provider: Magda Piña RN)1829 (Rate/Dose Change - Provider: Magda Piña RN) 0155 (Rate/Dose Verify - Provider: Sharita Oswald RN - Comment: no rate change)0221 (New Bag - Provider: Sharita C Oswald, RN) 1,200 Units/hr (12 mL/hr), Intravenous, at 12 mL/hr, CONTINUOUS, Starting 12/18/17 at 1015, Heparin 10a(Xa) = 0.23 12/19/2017 Goal level of: 0.15-0.35 IU/mL Heparin instructions: Continue rate of 120 0 units/hr Recheck next heparin 10a(Xa): in the AM. Heparin dosed per [place] Protocol. Monitor platelets every three days while on anticoagulation therapy. PRN Medication Order 12/17/2017 12/18/2017 12/19/2017 acetaminophen (TYLENOL) tablet 650 mg 0651 (Given - Provider: Love Lynch RN) 650 mg, Oral, EVERY 4 HOURS PRN, other, multimodal surgical pain management along with NSAIDS and opioid medication as indicated based on pain control and physical function., Starting 12/19/17 at 000 0, May give first dose 4 hours after las t scheduled dose of acetaminophen Maximum acetaminophen dose from all sources = 75 mg/kg/day not to exceed 4 grams/day., Post-procedure hydrALAZINE (APRESOLINE) injection 10 mg 0112 (Given - Provider: Sharita Oswald RN)0654 (Given - Provider: Love Myers V, LINDA) 10 mg, Intravenous, EVERY 4 HOURS PRN, h igh blood pressure, For SBP > 140, Administer over 1 Minutes, Starting 12/18/17 at 1827, For ordered doses up to 40 mg, give IV Push undiluted over 1 minute. labetalol (NORMODYNE/TRANDATE) injection 20 mg 1846 (Given - Provider: Magda Piña RN) 20 mg, Intravenous, EVERY 4 HOURS PRN, h igh blood pressure, For SBP > 140 and HR > 60. DOn't give if HR < 60., Administer over 2-8 Minutes, Starting 12/18/17 at 1827, For ordered doses up to 80 mg, give IV Push undiluted. Give each 20 mg over 2 minutes. lidocaine (LMX4) cream Topical, EVERY 1 HOUR PRN, pain, with VA D insertion or accessing implanted port., Starting 12/16/17 at 1403, Do NOT give if patient has a history of allergy to any local anesthetic or any anabell prod uct. Apply 30 minutes prior to VAD inser tion or port access. MAX Dose: 2.5 g (?? of 5 g tube), Post-procedure lidocaine 1 % 1 mL 1 mL, Other, EVERY 1 HOUR PRN, mild pain with VAD insertion or accessing implanted port, Starting Tue12/16/17 at 1403, Do NOT give if patient has a history of allergy to any local anesthetic or any lawler e product. MAX dose 1 mL subcutaneous O R intradermal in divided doses., Post-procedure naloxone (NARCAN) injection 0.1-0.4 mg 0.1-0.4 mg, Intravenous, EVERY 2 MIN PRN , opioid reversal, Starting Tue12/16/17 at 1403, For respiratory rate LESS than or EQUAL to 8. Partial reversal dose: 0.1 mg titrated q 2 minutes for Analgesia Augusto e Effects Monitoring Sedation Level of 3 (frequently drowsy, arousable, drifts to sleep during conversation).Full reversal dose: 0.4 mg bolus for Analgesia Side Effects Monitoring Sedation Level of 4 (s omnolent, minimal or no response to stim ulation). For ordered doses up to 2mg give IVP. Give each 0.4mg over 15 seconds in emergency situations. For non- emergent situations further dilute in 9mL of NS t o facilitate titration of response., Post-procedure ondansetron (ZOFRAN) injection 4 mg(Linked Group 2) 4 mg, Intravenous, EVERY 6 HOURS PRN, na usea, vomiting, Administer over 2-5 Minutes, Starting Tue12/16/17 at 1403, This is Step 1 of nausea and vomiting management. If nausea not resolved in 15 minutes, go to Step 2 prochlorperazine (COMPAZINE ). Irritant. For ordered doses up to 4 mg, give IV Push undiluted over 2-5 minutes., Post-procedure ondansetron (ZOFRAN-ODT) ODT tab 4 mg(Linked Group 2) 4 mg, Oral, EVERY 6 HOURS PRN, nausea, v omiting, Starting Tue12/16/17 at 1403, This is Step 1 of nausea and vomiting management. If nausea not resolved in 15 minutes, go to Step 2 prochlorperazine (JULIO ZINE). Do not push through foil backing. Peel back foil and gently remove. Place on tongue immediately. Administration with liquid unnecessary With dry hands, peel back foil backing and gently remove ta blet; do not push oral disintegrating ta blet through foil backing; administer immediately on tongue and oral disintegrating tablet dissolves in seconds; then swallow with saliva; liquid not required., Post-procedure oxyCODONE IR (ROXICODONE) tablet 5-10 mg 1740 (Given - Provider: Vu Riggins, RN) 1853 (Given - Provider: Magda Piña, LINDA) 0055 (Give n - Provider: Sharita Oswald RN)1527 (Given - Provider: Nola Lizarraga, LINDA) 5-10 mg, Oral, EVERY 4 HOURS PRN, other, pain control or improvement in physical function. Hold dose for analgesic side effects., Starting Tue12/16/17 at 1403, Start with the lowest dose. May adjust dose by 5 mg every 4 hours as needed for john n control or improvement in physical function. Notify provider to assess for uncontrolled pain or analgesic side effects. Hold while on [employer] SUPER[employer] or with regular IV opi oid dosing. Maximum total is 60 mg in 24 hours., Post-procedure sodium chloride (PF) 0.9% PF flush 3 mL 1846 (Given - Provider: Magda Piña RN) 0655 (Given - Provider: Love quevedo V RN) 3 mL, Intracatheter, EVERY 1 HOUR PRN, l ine flush, for peripheral IV flush post IV meds, Starting Tue12/16/17 at 1403, Post-procedure Warfarin Therapy Reminder (Check START D ATE - warfarin may be starting in the FUTURE) CONTINUOUS PRN, Starting Tue12/16/17 at 1 403, Until Tue12/19/17 at 1932, *Note to reorder warfarin (COUMADIN) daily* Pharmacy Warfarin (COUMADIN) Dosing Service Patient is on Warfarin Therapy - check for daily order, Post-procedure Linked Groups Order Group 1: senna-docusate (SENOKOT-S;PERICOLACE) 8.6-50 MG per tablet 1 tabletJump to med 1 tablet, Oral, 2 TIMES DAILY, First dos e on Tue12/16/17 at 2100
If no bowel movement in 24 hours, increase to 2 tablets PO. Hold for loose stools.
Post-procedure Or senna-docusate (SENOKOT-S;PERICOLACE) 8.6-50 MG per tablet 2 tabletJump to med 2 tablet, Oral, 2 TIMES DAILY, First dos e on Tue12/16/17 at 2100
Hold for loose stools.
Post-procedure Group 2: ondansetron (ZOFRAN-ODT) ODT tab 4 mgJump to med 4 mg, Oral, EVERY 6 HOURS PRN, nausea, v omiting, Starting Tue12/16/17 at 1403
This is Step 1 of nausea and vomiting management. If nausea not resolved in 15 minutes, go to Huy p 2 prochlorperazine (COMPAZINE). Do not push through foil backing. Peel back foil and gently remove. Place on tongue immediately. Administration with liquid unnecessary With dry hands, peel ba ck foil backing and gently remove tablet ; do not push oral disintegrating tablet through foil backing; administer immediately on tongue and oral disintegrating tablet dissolves in seconds; then swallow with saliva; liquid not required.
Pos t-procedure Or ondansetron (ZOFRAN) injection 4 mgJump to med 4 mg, Intravenous, EVERY 6 HOURS PRN, na usea, vomiting, Administer over 2-5 Minutes, Starting Tue12/16/17 at 1403
This is Step 1 of nausea and vomiting management. If nausea n ot resolved in 15 minutes, go to Step 2 prochlorperazine (COMPAZINE). Irritant. For ordered doses up to 4 mg, give IV Push undiluted over 2-5 minutes.
Post-procedure documented in this encounter Care Teams Swimming Instructor Relationship Specialty Start Date End Date Preet Huff PCP - General 06/24/11 documented as of this encounter
--- OUTSIDE RECORDS SUMMARY | 2022-09-01 20:13 | XMS_ITS | Encounter Summary ---
:1965 Author Organization [place] Address [address] [facility] 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 (H) Jaxon Saravia MD Procedures IR Lower Extremity Angiogram Left [address] [place] [id number] Referral ID Status Reason Start Date Expiration Date Visits Requ ested Visits Authorized [id number] Closed 12/02/2017 12/02/2018 1 1 SERVICE WORKER Encounter Details Date Type Department Care Team Description 12/07/2017 [facility] Michele Fuentes Athero sclerosis of Encounter [facility] MD Jared tak[place] artery of left Suit[facility] [place] lower extremity with [address] RADIOLOGIC CONS ulceration of heel (H) [place] [address] [address] [facility] [address] [place], [place] [id number] Social History Tobacco Use Types Packs/Day Years Used Date Smoking Tobacco: Never Smokeless Tobacco: Never Alcohol Use Standard Drinks/Week Comments No 0 (1 standard drink = 0.6 oz pure alcoho l) Sex Assigned at Date Recorded Not on file documented as of this encounter Last Filed Vital Signs Vital Sign Reading Time Taken Comments Blood Pressure 159/75 12/07/2017 7:00 PM TRAY SERVICE WORKER Pulse 67 12/07/2017 2:15 PM TRAY SERVICE WORKER Temperature 37.1 ??C (98.8 ??F) 12/07/2017 12:10 PM TRAY SERVICE WORKER Respiratory Rate 16 12/07/2017 7:00 PM TRAY SERVICE WORKER Oxygen Saturation 99% 12/07/2017 6:00 PM TRAY SERVICE WORKER Inhaled Oxygen Concentration - - Weight 90 kg (198 lb 8 oz) 12/07/2017 12:10 PM TRAY SERVICE WORKER Height 170.2 cm (5' 7) 12/07/2017 12:10 PM TRAY SERVICE WORKER Body Mass Index 31.09 12/07/2017 12:10 PM TRAY SERVICE WORKER documented in this encounter Discharge Instructions Discharge InstructionsYasemin Solis RN - 12/07/2017 7:03 PM CST Peripheral Angiogram via fistula Discharge Instructions Dr. Fuentes After you go home: ??? Have an adult stay with you until tomorrow. ??? You may resume your normal diet. ??? No smoking For 24 hours - due to the sedation you received: ??? Relax and take it easy. ??? Do NOT make any important or legal decisions. ??? Do NOT drive or operate machines at home or at work. ??? Do NOT drink alcohol. Care of Puncture Site: ??? For the [...] until bleeding stops Activity ??? You should rest for the remainder of today to prevent increased swelling/bleeding ??? You may go back to your [...] cannot control If you have questions call: [facility] Radiology Dept @ [phone] [facility] @ [phone] SERVICE WORKER documented in this encounter Medications at Time of Discharge Medication Sig Dispensed Refills Start Date End Date AMLODIPINE BESYLATE PO Take 10 mg by mouth 0 four times a week On Non dialysis days which is MWFSun Calcium Acetate, Phos Take 1,334 mg by [...] daily Take on MWFSun, on Non-dialysis days simvastatin (ZOCOR) 40 Take 40 mg by mouth 0 12/16/2017 MG tablet every evening bisacodyl (DULCOLAX) 5 Take 10 mg by mouth 0 12/16/2017 MG EC tablet See Admin Instructions Take on Once Daily on M, W, F, [place] (Non-dialysis days only) calcium acetate (PHOSLO) Take 667 mg by mouth 0 12/16/2017 667 MG CAPS every evening With a snack WARFARIN SODIUM PO Take 5 mg by mouth 0 12/19/2017 every evening documented as of this encounter Progress Notes Yasemin Solis RN - 12/07/2017 7:32 PM CST 1655 Patient returned to [facility], s/p LLE angiogram, with access point his L leg fistula, and is WDL/no bleeding or hematoma. Bedrest for 2 hours. Taking po food/fluids. 1739 Bedside ultrasound done. 1900 Patient ambulated with cane and SBA without difficulty. Voided. 1914 Left fistula site remained stable. States understanding of discharge instructions. 1935 Discharged per W/C with after school driver. SERVICE WORKER Catherine Maldonado RN - 12/07/2017 2:26 PM CST Interventional Radiology Intra-procedural Nursing Note Patient Name: Herminio Victor Today's Date: December 07, 2017 Start Time: 1439 End of procedure time: 1623 Procedure: Left lower extremity angiogram Report given to: Yasemin MCKEON, Care Suites Time pt departs: 1653 Other Notes: Patient in IR2 for left lower extremity angiogram. 6F sheath inserted at 1444 through left medial thigh fistula. 200 mcg fentanyl and 2 mg midazolam given for sedation. Angioplasty to leftposterior tibial artery, no change in blood flow through vessel per MD. Sheath removed from fistula at 1623, manual pressure held until hemostasis. Patient tolerated procedure, no complications. Catherine Maldonado RN SERVICE WORKER documented in this encounter Consult Notes Jaxon Saravia MD - 12/07/2017 4:32 PM CST Vascular Surgery Herminio Victor is admitted today for a left leg angiogram via his left distal superficial femoral artery to proximal common femoral vein ProCol dialysis graft. He has no upper extremity axis remaining and had thrombosed accesses in his right groin. Thus the present access is all that we have avail able to keep him on dialysis and avoid a tunnel catheter with its high infection risk particularly in the lower extremity. He has required angioplasty of the outflow portion of the Procol most recently being performed on 07/25/2017. This is been functioning well at his dialysis unit in [place]. At the time of his placement he had a palpable dorsalis pedis pulse in the left foot with good Doppler flow. Approximately 3-4 weeks ago he developed a ulceration over his left lateral heel. This is a dry eschar and is seen the podiatric surgeons in [place]. This is very painful to touch and he does have evidence of rest pain. His aunt who takes care of him and lives with him gives him Tylenol forpain control. Due to the pain in nonhealing aspect of this ulcer we felt that he should undergo an angiogram today. We plan to have this done via the fistula which would allow us not to reverse his INR--on Coumadin due to his access issues. Exam: Alert and appropriate. Vital signs stable. Chest= clear Cardiovascular=RR Very dilated Procol graft in left medial thigh with high flow pulse and thrill. Dry eschar measuring approximately 3 x 2 cm in the left lateral heel that is very tender to touch with no obvious infection. No palpable dorsalis pedis pulse. Dr. Richmond is performing the fistulogram/angiogram. This reveals no arterial inflow issues with a widely patent common femoral-superficial femoral-popliteal artery. Anterior tibial artery is patent down into a good dorsalis pedis artery in the foot. Both the posterior tibial and peroneal arteries areoccluded at their origins and could not be recanalized. On the initial films there is no evidence ofrecanalization of even branches of the posterior tibial artery which are the arteries that supply the lateral heel. The fistula did have a mild outflow stenosis which we angioplasty to help prevent recurrent problems. Per my request Dr. Richmond occluded the fistula and then performed an angiogram of his foot in thelateral position. With the loss of the competitive outflow from the fistula we did cease several more small arteries reconstituted via the posterior tibial branch of these were very minuscule. Impression: Nonhealing left lateral heel ulcer with pain. This is in the distribution of the peroneal and posterior tibial artery. Though the dorsalis pedis artery is patent there is minimal flow notedto the posterior tibial collaterals. We do feel that some of this may be related to a steel phenomena from the high flow of his dialysis access. We cannot sacrifice his axis if we want him to continue on hemodialysis effectively. If her unable to resolve the foot problem will go to a below-knee amputation due to pain and infection reasons. We will perform a duplex of the fistula to determine the outflow volume. If this is high would recommend that we abandoned the protocol at the anastomosis to decrease the outflow volume and the competitive flow and try to increase as much as possible to flow into his foot to see if the ulcer will heal. We would also debride the ulcer at the time of the surgical procedure. Final determination will depend on the ultrasound the fistula which will be performed prior to the patient's discharge later today. I do spoken with the patient's aunt who is his caregiver about the situation and planned surgery which will performed in the next week. We would hold his Coumadin for several days prior to the procedure since his INR today is elevated to 3.04. I spent 30 minutes with the patient today reviewing the angiogram films as they were being done by Dr. Richmond and organizing a plan for limb salvage. Jaxon Saravia MD SERVICE WORKER documented in this encounter Plan of Treatment Not on filedocumented as of this encounter Procedures Procedure Name Priority Date/Time Associated Diagnosis Comme nts US EXTREMITY ARTERIAL Routine 12/07/2017 6:47 Res ults for this VENOUS DIALYSIS ACCESS PM TRAY SERVICE WORKER proce dure are in GRAFT the results section. IR LOWER EXTREMITY Routine 12/07/2017 4:41 Atherosclerosis of Results for this ANGIOGRAM LEFT PM TRAY SERVICE WORKER [place] artery of left proc edure are in lower extremity with the res ults ulceration of heel (H) secti on. INR STAT 12/07/2017 12:34 Atherosclerosis of Resul ts for this PM TRAY SERVICE WORKER [place] artery of left proced ure are in lower extremity with the res ults ulceration of heel (H) secti on. PARTIAL THROMBOPLASTIN STAT 12/07/2017 12:34 Atherosclerosi s of Results for this TIME PM TRAY SERVICE WORKER [place] artery of left proced ure are in lower extremity with the res ults ulceration of heel (H) secti on. LIPID PROFILE STAT 12/07/2017 12:34 Atherosclerosis of Resu lts for this PM TRAY SERVICE WORKER [place] artery of left proced ure are in lower extremity with the res ults ulceration of heel (H) secti on. HEMOGLOBIN A1C STAT 12/07/2017 12:34 Atherosclerosis of Res ults for this PM TRAY SERVICE WORKER [place] artery of left proced ure are in lower extremity with the res ults ulceration of heel (H) secti on. CREATININE STAT 12/07/2017 12:34 Atherosclerosis of Resul ts for this PM TRAY SERVICE WORKER [place] artery of left proced ure are in lower extremity with the res ults ulceration of heel (H) secti on. CBC WITH PLATELETS STAT 12/07/2017 12:34 Atherosclerosis of Results for this PM TRAY SERVICE WORKER [place] artery of left proced ure are in lower extremity with the res ults ulceration of heel (H) secti on. documented in this encounter Results US Ext Arterial Venous Dialys Acs Graft (12/07/2017 6:47 PM TRAY SERVICE WORKER) Anatomical Region Laterality Modality Vascular, Abdomen/Pelvis Ultrasound Specimen (Source) Anatomical Location Collection Method / Collectio n Time Received Time / Laterality Volume Impressions 12/08/2017 9:22 AM TRAY SERVICE WORKER IMPRESSION: Patent left leg dialysis graft with volume of flow similar to prior. YOSEPH RAYMUNDO MD Narrative 12/08/2017 9:22 AM TRAY SERVICE WORKER ULTRASOUND EXTREMITY ARTERIAL VENOUS DIALYSIS ACCESS GRAFT December 07, 2017 6:47 PM HISTORY: Steal (non-healing left heal ul cer). COMPARISON: 08/31/2017. TECHNIQUE: Color Doppler and spectral wa veform analysis performed. FINDINGS: There is a dialysis graft in t he left thigh that is patent with a calculated outflow volume of 3603 mL/m. Velocities within the graft are similar to the prior study. Th ere is an area of dilation along the outflow that measures up to 24 mm possibly related to graft degeneration in an area of frequent acce ss. Waveforms and velocities were not measured in the superficial fem oral artery beyond the anastomosis. Procedure Note Yoseph Raymundo MD - 12/08/2017Forma tting of this note might be different from the original. ULTRASOUND EXTREMITY ARTERIAL VENOUS NGA LYSIS ACCESS GRAFT December 07, 2017 6:47 PM HISTORY: Steal (non-healing left heal ul cer). COMPARISON: 08/31/2017. TECHNIQUE: Color Doppler and spectral wa veform analysis performed. FINDINGS: There is a dialysis graft in t he left thigh that is patent with a calculated outflow volume of 3603 mL/m. Velocities within the graft are similar to the prior study. Th ere is an area of dilation along the outflow that measures up to 24 mm possibly related to graft degeneration in an area of frequent acce ss. Waveforms and velocities were not measured in the superficial fem oral artery beyond the anastomosis. IMPRESSION: Patent left leg dialysis gra ft with volume of flow similar to prior. YOSEPH RAYMUNDO MD Jaxon Saravia MD IMG US ORDERABLES IR Lower Extremity Angiogram Left (12/07/2017 4:41 PM TRAY SERVICE WORKER) Anatomical Region Laterality Modality Lower Extremity Radio Fluoroscopy Specimen (Source) Anatomical Location Collection Method / Collectio n Time Received Time / Laterality Volume Impressions 12/08/2017 7:15 PM TRAY SERVICE WORKER IMPRESSION: Right lower extremity angiogram and fistulogram performed as above. Long segment occlusions of the left posterior tibial and peroneal arteries with primarily single vessel runoff via the anterior tibial artery to the left foot. Question of increase flow to the hindfoot in area of heel ulceration with compression on the dialysis fistula. This would suggest some steal b y the fistula on the arterial flow to the left foot. MICHELE FUENTES MD Narrative 12/08/2017 7:15 PM TRAY SERVICE WORKER INTERVENTIONAL RADIOLOGY LOWER EXTREMITY ANGIOGRAM LEFT ??12/07/2017 4:41 PM HISTORY: ??52-year-old male with a left mid-distal superficial femoral artery to superficial femoral vein ProCo l dialysis graft. Patient has developed a nonhealing wound in the left heel. He also has had a history of stenosis of the venous anasto mosis of the protocol graft. He presents today for an angiogram of th e left lower extremity to evaluate arterial blood flow to the left heel distribution. Patient is on Coumadin with an INR of 3 and access for planned evaluation of the left lower extremity arteries will be vi a the graft to minimize risk of hematoma at puncture site. COMPARISON: Fistulogram dated 07/25/2017 . DESCRIPTION OF PROCEDURE: After obtainin g informed consent, the patient was placed in a supine position on the fluoroscopy table. The left mid-distal thigh was prepped and dr aped in the usual sterile manner. 1% lidocaine was injected for lo evie anesthesia. Ultrasound was used to evaluate and document patency of the dialysis graft. Under ultrasound guidance, access into the gra ft was obtained directed towards the arterial anastomosis. A 6 Fr ench vascular sheath was placed. A JB1 catheter was then passed i nto the above-knee popliteal artery and a left lower extremity angiog isrrael was performed. The JB1 catheter was also passed into the left c ommon iliac artery for more proximal angiography. FINDINGS: Left lower extremity angiogram: External iliac artery: No significant st enosis. Common femoral artery: No significant st enosis. Superficial femoral artery: Mild stenosi s proximally and just proximal to the arterial anastomosis of the ProCo l graft. Popliteal artery: No significant stenosi s. Tibial arteries: Primarily single vessel runoff via the anterior tibial artery. Peroneal artery occludes in the proximal calf. A very small caliber posterior tibial artery wa s identified extending into the mid distal calf. It could not be fol lowed into the hindfoot. There was question of a faint medial plantar b ranch in the foot. Intervention: A [address], with Turnpike catheter and 0.014 wire were used to attempt to r ecanalize the occluded distal posterior tibial artery. A wire was able to be passed into the posterior tibial artery to the level of the ankle. The artery in this area was dilated with a 1.5 mm balloon h owever, attempts to pass the wire into plantar branches of the drilling manager ior tibial artery were unsuccessful and ultimately led to alvarado timal entry. At this time, attempt at recannulization was ended. Repeat angiogram of the left foot was pe rformed with pressure held on the dialysis fistula. There was a questi on of some increased flow into posterior tibial arterial branches via c ollaterals from the anterior tibial artery in the hindfoot. There was a mild to moderate stenosis id entified at the venous anastomosis of the graft. Attempts to fl ip vascular sheath in the direction of this anastomosis to angiopl asty the stenosis lead to loss of access. At this time, it was felt mayela t the stenosis was not significant enough to warrant a second n eedle entry into the dialysis graft. Therefore, pressure was held at t he initial puncture site for 10 minutes with good hemostasis. The patient tolerated the procedure well . There were no immediate postprocedure complications. The patient 's vital signs were monitored by radiology nursing staff under my supe rvision and remained stable throughout the study. Medications: 2 mg Versed, 200 mcg fentan yl Sedation time: 104 minutes Fluoroscopy time: 28.7 minutes Total fluoroscopy dose: 106 mGy Contrast: 90 mL Visipaque Procedure Note Michele Fuentes MD - 12/08/2017F ormatting of this note might be different from the original. INTERVENTIONAL RADIOLOGY LOWER EXTREMITY ANGIOGRAM LEFT 12/07/2017 4:41 PM HISTORY: 52-year-old male with a left mi d-distal superficial femoral artery to superficial femoral vein ProCo l dialysis graft. Patient has developed a nonhealing wound in the left heel. He also has had a history of stenosis of the venous anasto mosis of the protocol graft. He presents today for an angiogram of th e left lower extremity to evaluate arterial blood flow to the left heel distribution. Patient is on Coumadin with an INR of 3 and access for planned evaluation of the left lower extremity arteries will be vi a the graft to minimize risk of hematoma at puncture site. COMPARISON: Fistulogram dated 07/25/2017 . DESCRIPTION OF PROCEDURE: After obtainin g informed consent, the patient was placed in a supine position on the fluoroscopy table. The left mid-distal thigh was prepped and dr aped in the usual sterile manner. 1% lidocaine was injected for lo evie anesthesia. Ultrasound was used to evaluate and document patency of the dialysis graft. Under ultrasound guidance, access into the gra ft was obtained directed towards the arterial anastomosis. A 6 Fr ench vascular sheath was placed. A JB1 catheter was then passed i nto the above-knee popliteal artery and a left lower extremity angiog isrrael was performed. The JB1 catheter was also passed into the left c ommon iliac artery for more proximal angiography. FINDINGS: Left lower extremity angiogram: External iliac artery: No significant st enosis. Common femoral artery: No significant st enosis. Superficial femoral artery: Mild stenosi s proximally and just proximal to the arterial anastomosis of the ProCo l graft. Popliteal artery: No significant stenosi s. Tibial arteries: Primarily single vessel runoff via the anterior tibial artery. Peroneal artery occludes in the proximal calf. A very small caliber posterior tibial artery wa s identified extending into the mid distal calf. It could not be fol lowed into the hindfoot. There was question of a faint medial plantar b ranch in the foot. Intervention: A [address], with Turnpike catheter and 0.014 wire were used to attempt to r ecanalize the occluded distal posterior tibial artery. A wire was able to be passed into the posterior tibial artery to the level of the ankle. The artery in this area was dilated with a 1.5 mm balloon h owever, attempts to pass the wire into plantar branches of the drilling manager ior tibial artery were unsuccessful and ultimately led to alvarado timal entry. At this time, attempt at recannulization was ended. Repeat angiogram of the left foot was pe rformed with pressure held on the dialysis fistula. There was a questi on of some increased flow into posterior tibial arterial branches via c ollaterals from the anterior tibial artery in the hindfoot. There was a mild to moderate stenosis id entified at the venous anastomosis of the graft. Attempts to fl ip vascular sheath in the direction of this anastomosis to angiopl asty the stenosis lead to loss of access. At this time, it was felt mayela t the stenosis was not significant enough to warrant a second n eedle entry into the dialysis graft. Therefore, pressure was held at t he initial puncture site for 10 minutes with good hemostasis. The patient tolerated the procedure well . There were no immediate postprocedure complications. The patient 's vital signs were monitored by radiology nursing staff under my supe rvision and remained stable throughout the study. Medications: 2 mg Versed, 200 mcg fentan yl Sedation time: 104 minutes Fluoroscopy time: 28.7 minutes Total fluoroscopy dose: 106 mGy Contrast: 90 mL Visipaque IMPRESSION: Right lower extremity angiog isrrael and fistulogram performed as above. Long segment occlusions of the left posterior tibial and peroneal arteries with primarily single vessel runoff via the anterior tibial artery to the left foot. Question of increase flow to the hindfoot in area of heel ulceration with compression on the dialysis fistula. This would suggest some steal b y the fistula on the arterial flow to the left foot. MICHELE FUENTES MD Jaxon Saravia MD IMG IR ORDERABLES (ABNORMAL) Partial thromboplastin time (12/07/2017 12:34 PM TRAY SERVICE WORKER) athologist Signature PTT 91 (H) 22 - 37 sec 12/07/2017 [place] 1:12 PM TRAY SERVICE WORKER [facility] Specimen Anatomical Collection Method Collection Time Receive d Time (Source) Location / / Volume Laterality Blood specimen 12/07/2017 12:34 8 (specimen) PM TRAY SERVICE WORKER 12:58 PM TRAY SERVICE WORKER Michele Fuentes MD LAB - BLOOD ORDERABLES Performing Organization Address City/State/ZIP Code Phon e Number M [facility] [address] [id number] [facility] [address] [address], [place] [phone] (ABNORMAL) INR (12/07/2017 12:34 PM TRAY SERVICE WORKER) athologist Signature INR 3.04 (H) 0.86 - 1.14 12/07/2017 [place] 1:12 PM [facility] Specimen Anatomical Collection Method Collection Time Receive d Time (Source) Location / / Volume Laterality Blood specimen 12/07/2017 12:34 8 (specimen) PM TRAY SERVICE WORKER 12:58 PM TRAY SERVICE WORKER Michele Fuentes MD LAB - BLOOD ORDERABLES Performing Organization Address City/State/ZIP Code Phon e Number [facility] [address] [place] [address] [facility] [address] [place] [address], [place] [phone] (ABNORMAL) Lipid panel (12/07/2017 12:34 PM TRAY SERVICE WORKER) [facility] gist Method Time Signature Cholesterol 115 <200 mg/dL 12/07/2017 [place] 1:27 PM [facility] Triglycerides 84 <150 mg/dL 12/07/2017 [place] 1:27 PM [facility] HDL Cholesterol 37 (L) >39 mg/dL 12/07/2017 [place] 1:27 PM [facility] LDL Cholesterol 61 <100 mg/dL 12/07/2017 [place] Calculated 1:27 PM [facility] Comment: Desirable: <100 mg/dl Non HDL Cholesterol 78 <130 mg/dL 12/07/2017 1:27 PM [facility] Specimen Anatomical Collection Method Collection Time Receive d Time (Source) Location / / Volume Laterality Blood specimen 12/07/2017 12:34 8 (specimen) PM TRAY SERVICE WORKER 12:58 PM TRAY SERVICE WORKER Michele Fuentes MD LAB - BLOOD ORDERABLES Performing Organization Address City/State/ZIP Code Phon e Number [facility] [address] [place] [address] [facility] [address] [place] [address], [place] [phone] (ABNORMAL) Creatinine (12/07/2017 12:34 PM TRAY SERVICE WORKER) P athologist Signature Creatinine 10.20 (H) 0.66 - 12/07/2017 [place] 1.25 mg/dL 1:25 PM [facility] GFR Estimate 5 (L) >60 12/07/2017 [place] mL/min/1.7 1:[address] Comment: Non GFR Calc GFR Estimate If 6 (L) >60 mL/min/1.7m2 12/07/2017 1:25 P M [facility] Comment: GFR Calc Specimen Anatomical Collection Method Collection Time Receive d Time (Source) Location / / Volume Laterality Blood specimen 12/07/2017 12:34 8 (specimen) PM TRAY SERVICE WORKER 12:58 PM TRAY SERVICE WORKER Michele Fuentes MD LAB - BLOOD ORDERABLES Performing Organization Address City/State/ZIP Code Phon e Number M [facility] [address] [phone] [facility] [address] [address], [place] [phone] Hemoglobin A1c (12/07/2017 12:34 PM TRAY SERVICE WORKER) P athologist Signature Hemoglobin A1C 5.6 4.3 - 6.0 12/07/2017 [place] % 1:37 PM [facility] Specimen Anatomical Collection Method Collection Time Receive d Time (Source) Location / / Volume Laterality Blood specimen 12/07/2017 12:34 8 (specimen) PM TRAY SERVICE WORKER 12:58 PM TRAY SERVICE WORKER Michele Fuentes MD LAB - BLOOD ORDERABLES Performing Organization Address City/State/ZIP Code Phon e Number [facility] [address] [place] [address] [facility] [address] [address], [place] [phone] (ABNORMAL) CBC with platelets (12/07/2017 12:34 PM TRAY SERVICE WORKER) Analysis Performed At Patho logist Time Signature WBC 5.8 4.0 - 11.0 12/07/2017 [place] 10e9/L 1:02 PM [facility] RBC Count 3.62 (L) 4.4 - 5.9 12/07/2017 [place] 10e12/L 1:02 PM [facility] Hemoglobin 9.9 (L) 13.3 - 12/07/2017 [facility] 17.7 g/dL 1:02 PM [facility] Hematocrit 31.1 (L) 40.0 - 12/07/2017 [facility] 53.0 % 1:02 PM [facility] MCV 86 78 - 100 12/07/2017 [facility] fl 1:02 PM [facility] MCH 27.3 26.5 - 12/07/2017 [place] 33.0 pg 1:02 PM [facility] MCHC 31.8 31.5 - 12/07/2017 [facility] 36.5 g/dL 1:02 PM [facility] RDW 15.6 (H) 10.0 - 12/07/2017 [facility] 15.0 % 1:02 PM [facility] Platelet Count 181 150 - 450 12/07/2017 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 (H) documented in this encounter Administered Medications Inactive Administered Medications - up to 3 most recent administrations Medication Order MAR Action Action Date Dose Rate Site acetaminophen (TYLENOL) tablet Given 12/07/2017 6:02 PM TRAY SERVICE WORKER 1,00 0 mg 500-1,000 mg 500-1,000 mg, Oral, EVERY 6 HOURS PRN, mild pain, Starting on Tue12/07/17 at 1708, For 4 doses, Maximum acetaminophen dose from all sources = 75 mg/kg/day not to exceed 4 gram, IR Post-procedure fentaNYL (PF) (SUBLIMAZE) 100 MCG/2ML in jection Starting on Tue12/07/17 at 1414, For 1 d papoe, Catherine Maldonado : cabinet override For ordered doses up to 100 mcg give IV Push undiluted over a minimum of 3-5 minutes. fentaNYL (PF) (SUBLIMAZE) injection 25-5 0 mcg Given 12/07/2017 4:14 PM TRAY SERVICE WORKER 50 mcg 25-50 mcg, Intravenous, EVERY 5 MIN PRN, severe pain (7-10), If inadequate response may repeat 25 mcg IV slowly every 5 min PRN severe pain; when verbally requested by provider., Administer over 2 Minutes, Starting on Tue12/07/17 at 1334, Doses can be exceeded under direct oversight of patient by physician. For ordered doses up to 100 mcg give IV Push undiluted over a minimum of 3-5 minutes., IR Intra-procedure Given 12/07/2017 4:06 PM TRAY SERVICE WORKER 50 mcg Given 12/07/2017 3:10 PM TRAY SERVICE WORKER 25 mcg fentaNYL (PF) (SUBLIMAZE) injection 25-5 0 mcg Given 12/07/2017 2:39 PM TRAY SERVICE WORKER 25 mcg 25-50 mcg, Intravenous, EVERY 5 MIN PRN, severe pain (7-10), If inadequate response may repeat 25 mcg IV slowly every 5 min PRN severe pain; when verbally requested by provider., Administer over 2 Minutes, Starting on Tue12/07/17 at 1426, Doses can be exceeded under direct oversight of patient by physician. For ordered doses up to 100 mcg give IV Push undiluted over a minimum of 3-5 minutes., IR Intra-procedure iodixanol (VISIPAQUE 320) Given by Other 12/07/2017 4:33 PM TRAY SERVICE WORKER 90 mL s injection 150 mL Clinician 150 mL, INTRA-ARTERIAL, ONCE, On Tue12/07/17 at 1415, For 1 dose, Supplied and administered by Radiology., IR Intra-procedure lidocaine (PF) (XYLOCAINE) 1 % Given by Other 12/07/2017 2:42 PM TRAY SERVICE WORKER 10 mg injection 10-300 mg 10-300 mg (1-30 mL), Subcutaneous, ONCE PRN, for local anesthetic.?When verbally ordered by prescriber during the procedure., Starting on Tue12/07/17 at 1426, For 1 dose, Dose to be divided into smaller volumes appropriate for the procedure., IR Intra-procedure lidocaine 1 % injection Starting on Tue12/07/17 at 1422, For 1 d ose, Catherine Maldonado : cabinet override midazolam (VERSED) 1 MG/ML injection Starting on Tue12/07/17 at 1414, For 1 d ose, Catherine Maldonado : cabinet override For ordered doses up to 2.5 mg give IV Push slowly tit rated over a minimum of 2 minutes. Dilute each 1mg in 4mL of NS. midazolam (VERSED) injection 0.5-1 mg Given 12/07/2017 3:35 PM TRAY SERVICE WORKER 0.5 mg 0.5-1 mg, Intravenous, Administer over 1 Minutes, EVERY 4 MIN PRN, sedation, If inadequate response may repeat 0.5 mg IV slowly every 4 minutes PRN sedation until desired response; when verbally requested by provider., Starting on Tue12/07/17 at 1334, Doses can be exceeded under direct oversight of patient by physician. For ordered doses up to 2.5 mg give IV Push slowly titrated over a minimum of 2 minutes. Dilute each 1mg in 4mL of NS., IR Intra-procedure Given 12/07/2017 3:10 PM TRAY SERVICE WORKER 0.5 mg Given 12/07/2017 2:52 PM TRAY SERVICE WORKER 0.5 mg sodium chloride 0.9% infusion New Bag 12/07/2017 1:02 PM TRAY SERVICE WORKER 20 mL/hr at 100 mL/hr, Intravenous, CONTINUOUS, IF PATIENT IS RECEIVING RENAL DIALYSIS, RN to reduce rate of 0.9 % sodium chloride IV solution to 10 mL /hour (TKO) IV infusion to prevent fluid overload., IR Pre-procedure, Starting on Tue12/07/17 at 1230, Until Tue12/07/17 at 1701 documented in this encounter Active and Recently Administered Medications Times are shown in TRAY SERVICE WORKER. Scheduled Medication Order 12/05/2017 12/06/2017 12/07/2017 iodixanol (VISIPAQUE 320) injection 150 mL (COMPLETED) 1633 (Given by Other Clinician - Provider: Marce Cramer, ADELINA) 150 mL, INTRA-ARTERIAL, ONCE, Tue 8 at 1415, For 1 dose, Supplied and administered by Radiology., IR Intra-procedure Continuous Medication Order 12/05/2017 12/06/2017 12/07/2017 sodium chloride 0.9% infusion (CANCELED) 1302 (New Bag - Provider: Isis Lindsay, RN) at 100 mL/hr, Intravenous, CONTINUOUS, I F PATIENT IS RECEIVING RENAL DIALYSIS, RN to reduce rate of 0.9 % sodium chloride IV solution to 10 mL /hour (TKO) IV infusion to prevent fluid overload., IR Pre- procedure, Starting Tue12/07/17 at 1230, Until Tue12/07/17 at 17 01 sodium chloride 0.9% infusion 17 15 (Canceled Entry - Provider: Orders Generic Provider - Comment: Automatically canceled at discontinue of medication order) at 100 mL/hr, Intravenous, CONTINUOUS, I F PATIENT IS RECEIVING RENAL DIALYSIS, RN to reduce rate of 0.9% sodium chloride IV solution to 10 mL /hour (TKO) IV infusion to prevent fluid overload., IR Post- procedure, Starting Tue12/07/17 at 1715, Until Tue12/07/17 at 21 36 PRN Medication Order 12/05/2017 12/06/2017 12/07/2017 acetaminophen (TYLENOL) tablet 500-1,000 mg 1802 (Given - Provider: Yasemin Solis, LINDA) 500-1,000 mg, Oral, EVERY 6 HOURS PRN, m ild pain, Starting Tue12/07/17 at 1708, For 4 doses, Maximum acetaminophen dose from all sources = 75 mg/kg/day not to exceed 4 gram, IR Post-procedure fentaNYL (PF) (SUBLIMAZE) injection 25-50 mcg (CANCELED) 1440 (Given - Provider: Catherine Mladonado, LINDA)1452 (Given - Provider: Catherine Maldonado, LINDA)1510 (Given - Provider: Catherine Maldonado, RN)1606 (Given - Provider: Catherine Maldonado, RN)1614 (Given - Provider: Catherine Maldonado, RN) 25-50 mcg, Intravenous, Administer over 2 Minutes, EVERY 5 MIN PRN, Starting Tue12/07/17 at 1334, severe pain, If inadequate response may repeat 25 mcg IV slowly every 5 min PRN severe pain; when verbal ly requested by provider., Doses can be exceeded under direct oversight of patient by physician. For ordered doses up to 100 mcg give IV Push undiluted over a minimum of 3-5 minutes., IR Intra-procedure fentaNYL (PF) (SUBLIMAZE) injection 25-50 mcg (CANCELED) 1439 (Given - Provider: Catherine Maldonado, LINDA) 25-50 mcg, Intravenous, Administer over 2 Minutes, EVERY 5 MIN PRN, Starting Tue12/07/17 at 1426, severe pain, If inadequate response may repeat 25 mcg IV slowly every 5 min PRN severe pain; when verbal ly requested by provider., Doses can be exceeded under direct oversight of patient by physician. For ordered doses up to 100 mcg give IV Push undiluted over a minimum of 3-5 minutes., IR Intra-procedure lidocaine (PF) (XYLOCAINE) 1 % injection 10-300 mg (COMPLETED) 1442 (Given by Other - Provider: Catherine Maldonado RN - Comment: Dr. Fuentes) 10-300 mg (1-30 mL), Subcutaneous, ONCE PRN, for local anesthetic.?When verbally ordered by prescriber during the procedure., Starting Tue12/07/17 at 1426, For 1 dose, Dose to be divided into smaller volumes appropriate for the procedure., IR Intra-procedure midazolam (VERSED) injection 0.5-1 mg (CANCELED) 1440 (Given - Provider: Catherine Maldonado, LINDA)1452 (Given - Provider: Catherine Maldonado, LINDA)1510 (Given - Provider: Catherine Maldonado, RN)1535 (Given - Provider: Catherine Maldonado, RN) 0.5-1 mg, Intravenous, Administer over 1 Minutes, EVERY 4 MIN PRN, Starting Tue12/07/17 at 1334, sedation, If inadequate response may repeat 0.5 mg IV slowly every 4 minutes PRN sedation until desired r esponse; when verbally requested by prov ider., Doses can be exceeded under direct oversight of patient by physician. For ordered doses up to 2.5 mg give IV Push slowly titrated over a minimum of 2 minut es. Dilute each 1mg in 4mL of NS., IR Intra-procedure documented in this encounter Care Teams Company Marker Relationship Specialty Start Date End Date Preet Huff PCP - General 06/24/11 documented as of this encounter
--- OUTSIDE RECORDS SUMMARY | 2022-09-01 20:13 | XMS_ITS | Encounter Summary ---
:1965 Author Organization [place] Address [address] [facility] [place] [address] Care Team Providers Name Role Phone Preet Huff Primary Care Provider Reason for Visit Reason Onset Date Comments Nurse Advice Line 11/02/2017 OMLIE - problems wit h left thigh fistula Encounter Details Date Type Department Care Team Description 11/02/2017 Telephone [facility] Jaxon Saravia Nurse Ad vice Line Vascular Clinic Mk Oviedo MD (OMLIE - problems with [address] le ft thigh fistula) [phone] [phone] [address] [phone] (Wo rk) Social History Tobacco Use Types Packs/Day Years Used Date Smoking Tobacco: Never Smokeless Tobacco: Never Alcohol Use Standard Drinks/Week Comments No 0 (1 standard drink = 0.6 oz pure alcoho l) Sex Assigned at Date Recorded Not on file documented as of this encounter Miscellaneous Notes Telephone Encounter - Mona Vang RN - 11/02/2017 11:39 AM CST Received a call from nurse Sofi at [facility]. Sofi states when she went to put the patient's shoe back on after weighing him, he screamed at her stating his foot hurt. Sofi was able to look at the bottom of his left foot, which is also the leg for dialysis access. States the area on the bottom of the heel was approximately 3cm, hardened, not open, and no drainage. Per Sofi, the patient's Aunt Thelma has been aware of the wound and had been soaking his feet. Called patient to speak with Aunt Thelma and she was adamant that the spot on his foot was not a wound and that it was a callous. She states that the patient has been seeing Dr. Huff for the callous. She also states that the patient had been wearing tight shoes and is in the process of getting special diabetic shoes. Informed Thelma of our concern of infection if patient were to have an open wound. Also informed Thelma that if anything changes and patient begins to have wounds on either lower extremity, to call clinic as soon as possible. Thelma notes understanding. SUSHIL Vargas, RN GION TEACHER documented in this encounter Plan of Treatment Not on filedocumented as of this encounter Visit Diagnoses Not on filedocumented in this encounter Care Teams Procurement Cost Coordinator Relationship Specialty Start Date End Date Preet Huff PCP - General 06/24/11 documented as of this encounter
--- OUTSIDE RECORDS SUMMARY | 2022-09-01 20:13 | XMS_ITS | Encounter Summary ---
:1965 Author Organization [place] Address [address] [facility] [place] [address] Care Team Providers Name Role Phone Preet Huff Primary Care Provider Reason for Visit Reason Onset Date Comments Nurse Advice Line 11/24/2017 RANI hernandez nts to give Dr Saravia a message Encounter Details Date Type Department Care Team Description 11/24/2017 Telephone [facility] Jaxon Saravia Nurse Ad vice Line Vascular Clinic Mk Oviedo MD (RANI Arcos RN [address] hernandez nts to give Dr Saravia [phone] a message) [address] [phone] [address] [address] [phone] (Wo rk) Social History Tobacco Use Types Packs/Day Years Used Date Smoking Tobacco: Never Smokeless Tobacco: Never Alcohol Use Standard Drinks/Week Comments No 0 (1 standard drink = 0.6 oz pure alcoho l) Sex Assigned at Date Recorded Not on file documented as of this encounter Miscellaneous Notes Telephone Encounter - Angie Mcclellan - 12/14/2017 4:08 PM CST Angiogram was completed 12/07/17. LUCA [id number] BOATBUILDER APPRENTICE Telephone Encounter - Janell Edgar RN - 12/02/2017 4:07 PM CST 11-30-17 Left LE arterial u/s and JAYCOB pushed to PACS. I discussed with Dr. Saravia who reviewed images. Dr. Saravia recommends left leg angiogram, they can gothrough the fistula. Order given to and discussed with engine dynamometer tester Angie. SUSHIL Love, RN BOATBUILDER APPRENTICE Telephone Encounter - Angie Mcclellan - 12/02/2017 3:05 PM CST Sofi from [facility] called, said that Aunt Thelma really wants to get Herminio in to see Dr Rani nunez.Thelma states that he had the ultrasound on his left leg (also his dialysis leg with LEFT ABOVE KNEEPOPLITEAL TO SUPERFICIAL THIGH FEMORAL VEIN PROCOL GRAFT) at the corporate specialist at [facility], and the valves showed no blood flow is going to his foot. Sofi states Herminio is walking as if he were in pain. His foot smells really bad, and the wound covers his whole heel. Sofi is asking us to call Thelma, so that Thelma can arrange transportation for Herminio. Routed to [facility] yacht rigger to see what Dr Saravia wants to do. She can't the the US/JAYCOB from [facility] pushed, as their office closed at 3pm today. Per Sofi, his dialysis runs are going ok. JAM [id number] BOATBUILDER APPRENTICE Telephone Encounter - Wanda Pichardo MA - 11/24/2017 3:03 PM CST I spoke to Thelma, the patient's aunt, who stated that Herminio is already seeing a corporate specialist for his foot wound at the [facility] in [place]. He has already had 2 appointments already and is scheduled for an ultrasound and another follow up appointment next week. Thelma stated that if she has any concerns about Herminio's foot she will call to schedule with Dr. Saravia. BOATBUILDER APPRENTICE Telephone Encounter - Janell Edgar, LINDA - 11/24/2017 11:[address] Saravia notes pt should have an JAYCOB u/s for left heel wound and OV as soon as possible. Order placed in [facility]. Routing to engine dynamometer tester to coordinate as soon as possible. Please call pts Aunt Thelma to schedule. SUSHIL Love, RN BOATBUILDER APPRENTICE Telephone Encounter - Janell Edgar RN - 11/24/2017 10:57 AM CST Pt hx of left mid superficial femoral artery to proximal one quarter superficial femoral vein ProColaccess. Sofi from [facility] called noting pts wound on left foot/bottom of heel has progressed and now measures 4cm in diameter, pt wearing adaptive boot which shows minimal blood on boot. Pts aunt has been soaking wound in salt water. Pt has seen PCP, however inquiring if pt should f/u with Dr. Saravia due to dialysis access on this leg. Sofi unable to take a picture of wound. Will discuss with Dr. Saravia. SUSHIL Love, RN BOATBUILDER APPRENTICE documented in this encounter Plan of Treatment Not on filedocumented as of this encounter Visit Diagnoses Diagnosis ESRD (end stage renal disease) on dialys is (H) - Primary End stage renal disease Open wound of heel documented in this encounter Care Teams Technical Inspector Relationship Specialty Start Date End Date Preet Huff PCP - General 06/24/11 documented as of this encounter
--- OUTSIDE RECORDS SUMMARY | 2022-09-01 20:13 | XMS_ITS | Encounter Summary ---
:1965 Author Organization [place] Address [address] [facility] [place] [address] Care Team Providers Name Role Phone Preet Huff Primary Care Provider Reason for Visit Reason Comments RECHECK 1st PO fistulogram of left t high ProCol dialysis graft, Banding of inflow portion, Full-thickness/subQ excisional debridement of left lateral heel ulcer Encounter Details Date Type Department Care Team Description 12/29/2017 Office Visit [facility] EspinozaJaxon dyer Ulcer of heel and midfoot, unspecified laterality, with fat layer exposed (H) (Primary Dx); Vascular Clinic Mk Oviedo MD PAD (peripheral artery disease) (H); [address] (end stage renal disease) on dialysis (H) [phone] [phone] [address] [id number] Social History Tobacco Use Types Packs/Day Years Used Date Smoking Tobacco: Never Smokeless Tobacco: Never Alcohol Use Standard Drinks/Week Comments No 0 (1 standard drink = 0.6 oz pure alcoho l) Sex Assigned at Date Recorded Not on file documented as of this encounter Last Filed Vital Signs Vital Sign Reading Time Taken Comments Blood Pressure 129/57 12/29/2017 1:14 PM CDT Pulse 68 12/29/2017 1:14 PM CDT Temperature - - Respiratory Rate - - Oxygen Saturation - - Inhaled Oxygen Concentration - - Weight - - Height - - Body Mass Index - - documented in this encounter Progress Notes Jaxon Saravia MD - 12/29/2017 1:00 PM CDT Images from the original note were not included. [facility] Herminio Victor return to see us in the clinic today along with his aunt who is his caregiver. He has a left thigh ProCol dialysis graft. He developed a left lateral heel ulcer that had failed to heal. He does have infrapopliteal PAD but an intact anterior tibial/dorsalis pedis artery in the foot withno posterior tibial artery. There was decreased distal flow to his foot due to the dialysis access with a partial steal phenomena. We needed to salvage his dialysis access since he has very limited other options. We therefore performed an intraoperative banding of the access at the anastomosis which increase the blood flow to his left foot via the anterior tibial and dorsalis pedis artery. The lateral heel ulcer was debrided and a negative pressure dressing was started. He lives in [facility]. Home health care is been changing the wound VAC 3 times weekly. His local poultice machine operator saw him yesterday to debride the wound. His aunt reports that the wound is now showing a pink granulation bed. He does take 1 oxycodone tablet prior to the dressing change. The left thigh access continues to function well after the banding. Exam: Patient is very comfortable. Blood pressure 129/57. Pulse 68. With strong pulse within the ProCol graft with healing surgical incision. Strong biphasic signal noted in the distal anterior tibial artery. VAC was not changed today since it had been done yesterday at the poultice machine operator's office. Impression: Improved blood supply left foot. Reports of improving of heel ulcer. Local care this will be continued with his local poultice machine operator since it is difficult due to the distance for him to come see me on a regular basis. They will decide when the VAC will be discontinued. We will see him back in 3 months for a follow-up duplex of the graft in his thigh since we did perform a venoplasty of the outflow stenosis. I refilled his oxycodone 5 mg tablets 1 daily (#30) prn. Jaxon Saravia MD Please route or send letter to: Primary Care Provider (PCP) documented in this encounter Nursing Notes Wanda Pichardo MA - 12/29/2017 1:00 PM CDT Chief Complaint Patient presents with ??? RECHECK 1st PO fistulogram of left thigh ProCol dialysis graft, Banding of inflow portion, Full-thickness/subQ excisional debridement of left lateral heel ulcer Initial BP 129/57 (BP Location: Left arm, Patient Position: Chair, Cuff Size: Adult Large) Pulse 68 Estimated body mass index is 31.25 kg/(m^2) as calculated from the following: Height as of 12/16/17: 5' 7 (1.702 m). Weight as of 12/19/17: 199 lb 8.3 oz (90.5 kg). Medication Reconciliation: complete Wanda Pichardo MA documented in this encounter Plan of Treatment Not on filedocumented as of this encounter Visit Diagnoses Diagnosis Ulcer of heel and midfoot, unspecified l aterality, with fat layer exposed (H) - Primary PAD (peripheral artery disease) (H) Unspecified disorders of arteries and ar terioles ESRD (end stage renal disease) on dialys is (H) End stage renal disease documented in this encounter Care Teams Tension Machine Operator Relationship Specialty Start Date End Date Preet Huff PCP - General 06/24/11 documented as of this encounter
--- OUTSIDE RECORDS SUMMARY | 2022-09-01 20:13 | XMS_ITS | Encounter Summary ---
:1965 Author Organization [place] Address [address] [facility] [place] [address] Care Team Providers Name Role Phone Preet [...] [address] [phone] [address] [place] [id number] Referral ID Status Reason Start Date Expiration Date Visits Requ ested Visits Authorized [id number] Closed 03/10/2018 03/10/2019 1 1 Encounter Details Date Type Department Care Team Description 12/30/2017 Orders Only [facility] Jaxon Saravia ESRD (en d stage renal disease) on dialysis (H) (Primary Dx); V[facility] Clinic Mk Oviedo MD Other specified complication of vascular prosthetic devices, implants and grafts, sequela [address] [place] [phone] [address] [phone] Social History Tobacco Use Types Packs/Day Years [...] above. MICHELE FUENTES MD Jaxon Saravia MD [facility] ORDERABLES documented in this encounter Visit Diagnoses Diagnosis ESRD (end stage renal disease) on dialys is (H) - Primary End stage renal disease Other specified complication of vascular prosthetic devices, implants and grafts, sequela Other specified complication of vascular prosthetic devices, implants and grafts, sequela ESRD (end stage renal disease) on dialys is (H) End stage renal disease documented in this encounter Care Teams Six Pack Loader Operator Relationship Specialty Start Date End Date Preet Huff PCP - General 06/24/11 documented as of this encounter
--- OUTSIDE RECORDS SUMMARY | 2022-09-01 20:13 | XMS_ITS | Encounter Summary ---
:1965 Author Organization [place] Address [address] [facility] [place] [address] Care Team Providers Name Role Phone Preet Huff Primary Care Provider Reason for Visit Reason Onset Date Comments Post-Op - Vascular 12/02/2017 Encounter Details Date Type Department Care Team Description 12/02/2017 Telephone [facility] Jaxon Saravia Post-Op - Vascular Vascular Clinic Mk Oviedo MD [address] [place] [phone] [address] [place] [id number] (Wo rk) Social History Tobacco Use Types Packs/Day Years Used Date Smoking Tobacco: Never Smokeless Tobacco: Never Alcohol Use Standard Drinks/Week Comments No 0 (1 standard drink = 0.6 oz pure alcoho l) Sex Assigned at Date Recorded Not on file documented as of this encounter Miscellaneous Notes Telephone Encounter - Jaxon Saravia MD - 12/02/2017 3:54 PM FORENSIC SPECIALIST [facility] Herminio Victor aunt called us a week ago about Herminio's development of the left heel ulcer. She did not want to come in and see us since the patient had established care in [place] with a underground truck operator. She is now calling again due to increasing pain of the heel ulcer. His dialysis center at [place] also called us. His history significant for end-stage renal disease on chronic hemodialysis. He has no upper extremity dialysis options. He is failed dialysis in the right groin options.. We presently have a left mid superficial femoral to proximal thigh ProCol graft. This was placed on 03/05/2016. He is required multiple interventions for outflow stenosis in the fistula after the last intervention on 07/25/2017 has been functioning well. At the time of placement he had adequate distal arterial flow. Due to his heel ulcer he underwent an arterial evaluation with an JAYCOB yesterday. This revealed diminished flow in the SFA beyond the fistula. Tibial vessels were calcified. Very minimal Doppler flow was noted within his foot. Impression: Left heel ulcer that is not improving. This is certainly partially related to arterial insufficiency. Some of this may be related to a steal phenomena from his functioning dialysis access. This is a major problem for the patient since we have very few other options available for his chronic hemodialysis. To evaluate his distal arterial circulation further and arteriogram of the left leg would be necessary. He has no evidence at all of arterial inflow disease but more consists concerned about flow beyond the graft. Angiogram can be performed via the graft in a retrograde fashion. We will try to arrange this in the next week. Jaxon Saravia MD NSIC SPECIALIST documented in this encounter Plan of Treatment Not on filedocumented as of this encounter Visit Diagnoses Not on filedocumented in this encounter Care Teams Cnc Router Operator Relationship Specialty Start Date End Date Preet Huff PCP - General 06/24/11 documented as of this encounter
--- OUTSIDE RECORDS SUMMARY | 2022-09-01 20:13 | XMS_ITS | Encounter Summary ---
:1965 Author Organization [place] Address [address] [facility] [place] [address] Care Team Providers Name Role Phone Preet Huff Primary Care Provider Reason for Visit Reason Onset Date Comments Referral 12/21/2017 Encounter Details Date Type Department Care Team Description 12/21/2017 Telephone [facility]ascular Jaxon Saravia, Referral Clinic Shital HARPER [address] [place] [phone] [place] [id number] [phone] (Wo rk) Social History Tobacco Use Types Packs/Day Years Used Date Smoking Tobacco: Never Smokeless Tobacco: Never Alcohol Use Standard Drinks/Week Comments No 0 (1 standard drink = 0.6 oz pure alcoho l) Sex Assigned at Date Recorded Not on file documented as of this encounter Miscellaneous Notes Telephone Encounter - Janell Edgar RN - 12/21/2017 5:01 PM CDT Aunt Thelma notes pt in pain with Dialysis, takes oxycodone which makes him so sleepy he slept all day and night, inquiring if they can get something for pain during day and then take oxycodone at night. I will discuss with Dr. Saravia. Janell Edgar, BSN, RN Telephone Encounter - Janell Edgar RN - 12/21/2017 4:[address] Carson called, I spoke with him and he approved of overseeing pts wound vac on left lateral heal ulcer. Dr. Francisco nurse will call pt and setup OV appt for next week. SUSHIL Love, RN Telephone Encounter - Janell Edgar RN - 12/21/2017 4:13 PM CDT Pt is status post Operative fistulogram of left thigh ProCol dialysis graft, Banding of inflow portion of left thigh ProCol dialysis graft, Full- thickness/subcutaneous excisional debridement, left lateral heel ulcer (5.5 x 3.5 x 3 cm) and wound vac placed on 12-16-17. I called and spoke to pts mother Arianna and pts Aunt Thelma. Are you having any issues with pain? no Do you have any concerns about your incision? no Do you have fever, nausea or vomiting? no Do you have any additional concerns? no Pt scheduled with Dr. Saravia on 12-29-17 for post op. Aunt Thelma notes pt in pain with Dialysis, takes oxycodone which makes him so sleepy he slept all day and night, inquiring if they can get something for pain during day and then take oxycodone at night. I will discuss with Dr. Saravia, she notes understanding. Also notes Nurse came today to change the wound vac, coming again on Tuesday. SUSHIL Love, RN Telephone Encounter - Janell Edgar RN - 12/21/2017 2:55 PM CDT Pt is status post Operative fistulogram of left thigh ProCol dialysis graft, Banding of inflow portion of left thigh ProCol dialysis graft, Full- thickness/subcutaneous excisional debridement, left lateral heel ulcer (5.5 x 3.5 x 3 cm) and wound vac placed on 12-16-17. Per Dr. Saravia, we should see if pts wallpaper embosser helper will oversee the wound vac care, this will be much more convenient for pt. I called the office of Dr. Alli NICHOLS at [facility], spoke to Ninfa MCKEON who will discuss with Dr. Carson and get back to us. Provided our contact number. SUSHIL Love, RN documented in this encounter Plan of Treatment Not on filedocumented as of this encounter Visit Diagnoses Not on filedocumented in this encounter Care Teams Handle Lathe Operator Relationship Specialty Start Date End Date Preet Huff PCP - General 06/24/11 documented as of this encounter
--- OUTSIDE RECORDS SUMMARY | 2022-09-01 20:13 | XMS_ITS | Encounter Summary ---
:1965 Author Organization [place] Address [address] [facility] [place] [address] Care Team Providers Name Role Phone Preet Huff Primary Care Provider Reason for Visit Reason Onset Date Comments Nurse Advice Line 12/13/2017 OMLIE - pain is not controlled with Tylenol, what else can they do? Encounter Details Date Type Department Care Team Description 12/13/[address] [facility] Jaxon Saravia Nurse Ad vice Line Vascular Clinic Mk Oviedo MD (OMLIE - pain is not [address] Tylenol, what else can [place] [phone] [place] [id number] they do?) [phone] (Wo rk) Social History Tobacco Use Types Packs/Day Years Used Date Smoking Tobacco: Never Smokeless Tobacco: Never Alcohol Use Standard Drinks/Week Comments No 0 (1 standard drink = 0.6 oz pure alcoho l) Sex Assigned at Date Recorded Not on file documented as of this encounter Miscellaneous Notes Telephone Encounter - Angie Mcclellan - 12/13/2017 11:45 AM CST Herminio's Aunt Thelma left a message on my voicemail. Herminio's pain is not being controlled by the Tylenol, she says he's taking it but he's still in a lot of pain - Is there anything else they can give him? Please check with Dr Saravia. Herminio has the left foot ulcer with bloodflow issues to the heel, and this 12/16/17 has BANDING LEFT SUPERFICIAL FEMORAL ARTERY PROCALL GRAFT, IRRIGATION AND DEBRIDEMENT LEFT FOOT ULCER . [facility] pls call Thelma back at [phone] Saravia's RN, closing encounter. JAM [id number] ET COMMISSIONER documented in this encounter Plan of Treatment Not on filedocumented as of this encounter Visit Diagnoses Not on filedocumented in this encounter Care Teams Residential Program Worker Relationship Specialty Start Date End Date Preet Huff PCP - General 06/24/11 documented as of this encounter
--- OUTSIDE RECORDS SUMMARY | 2022-09-01 20:13 | XMS_ITS | Encounter Summary ---
:1965 Author Organization [facility] Address [address] [place] [address] Care Team Providers Name Role Phone Preet Huff Primary Care Provider Reason for Referral Home Health Therapies & Aides Specialty Diagnoses / Procedures Referred By Contact Refer red To Contact Estrella Guillen MD [place] [phone] Referral ID Status Reason Start Date Expiration Date Visits Requ ested Visits Authorized [facility] Health Therapies & Aides Specialty Diagnoses / Procedures Referred By Contact Refer red To Contact Estrella Guillen MD [place] [phone] Referral ID Status Reason Start Date Expiration Date Visits Requ ested Visits Authorized Reason for Visit Auth/Cert Specialty Diagnoses / Procedures Referred By Contact Refer red To Contact Surgery Diagnoses NON HEALING LEFT LATERAL HEEL ULCER WITH PAIN Sh Perio p Services Procedures REVISION FISTULA ARTERIOVENOUS LOWER EXTREMITY [address] [place] [address] Phone: Referral ID Status Reason Start Date Expiration Date Visits Requ ested Visits Authorized [id number] 1 1 Encounter Details Date Type Department Care Team Description 12/16/2017 - Hospital Encounter [facility] Rober Saravia st-op pain (Primary Dx); 12/19/2017 Ariane Oviedo MD Problem with dialysis access, subsequent encounter; Intermediate Care [address] Mixed hyperlipidemia; [address] Drug-induced constipation; [place] [id number] [place] [address] Skin ulcer of left foot with fat layer e xposed (H) [phone] Social History Tobacco Use Types Packs/Day Years Used Date Smoking Tobacco: Never Smokeless Tobacco: Never Alcohol Use Standard Drinks/Week Comments No 0 (1 standard drink = 0.6 oz pure alcoho l) Sex Assigned at Date Recorded Not on file documented as of this encounter Last Filed Vital Signs Vital Sign Reading Time Taken Comments Blood Pressure 164/80 12/19/2017 3:21 PM CDT Pulse 71 12/19/2017 3:21 PM CDT Temperature 36.7 ??C (98.1 ??F) 12/19/2017 3:21 PM CDT Respiratory Rate 16 12/19/2017 4:20 PM CDT Oxygen Saturation 99% 12/19/2017 3:21 PM CDT Inhaled Oxygen Concentration - - Weight 90.5 kg (199 lb 8.3 oz) 12/19/2017 5:27 AM CDT Height 170.2 cm (5' 7) 12/16/2017 9:35 AM VP [facility]IES Body Mass Index 31.25 12/16/2017 9:35 AM [facility] documented in this encounter Discharge Summaries Rober Saravia MD - 12/19/2017 4:32 PM CDT [facility] Vascular Surgery Discharge Summary Date of Admission: [...] ESRD (end stage renal disease) (H) dialysis T--Sat ??? History of staph septicemia 12/20/2015 ??? [...] of outflow venous stenosis(8 x 40 mm Cortland balloon). 2. Banding of inflow portion of left thigh ProCol dialysis graft. 3. Full-thickness/subcutaneous excisional debridement, left lateral heel ulcer (5.5 x 3.5 x 3 cm). Application of negative pressure dressing. ?by Dr Rober Saravia Brief HPI: A 52-year-old patient who is on chronic hemodialysis. He has had multiple access challenges and has a patent left rzwxj-gxl-tovy popliteal to proximal thigh superficial femoral vein [...] On Non dialysis days which is MWFSun Refills: 0 BISACODYL PO Notes to Patient: [...] daily Take on MWFSun, on Non-dialysis days Refills: 0 HARRIS CAPS [...] I, or a nurse practitioner or physician's visitor information assistant working with me, had a klcf-wb-tliy encounter that meets the physician afap-kn-edrp encounter requirements with this patient on: 12/19/2017. [...] effort and are for medical reasons or [facility]eter[facility] services or infrequently or of short duration when for other reasons) because: Leaving home is medically contraind icated for the following reason(s): Other physician ordered restriction: Impaired mental ability. Based on the above findings. I certify that this patient is confined to the home and needs intermittent [facility] care, physical therapy and/or speech therapy. The patient is under my care, and latisha initiated the establishment of the plan of care. This patient will be followed by a physician who will periodically review the plan of care. Physician/Provider to provide follow up care: Preet Huff Attending hospital physician (the Medicare certified COFFEY provider): Rober Saravia, * Physician Signature: See [...] that dressing leaks or machine malfunctions. Consult [facility] nurse. Follow-up in Dr Saravia's clinic in two weeks. Full Code Diet Follow this diet upon discharge: Orders Placed This Encounter Dialysis Diet Estrella (Rashad) MD [facility] Fellow (p) STAFF: Agree with above and plan for Julio Cesar Sandhu . VAC change by [facility]. ? Able to arrange heel ulcer follow-up with local [facility] Dyer who was seeing patient prior to admission. [...] been left in your room from the [facility] sales representative cash registers. (You need to leave with a portable [...] the dressing with new Tegaderm or clear I drape. If this does not work, and Home Care is following the patient, call the Home Care nurse. If the machine malfunctions, read the manual and/or call [facility] at # How to Change the Canister [...] about ???alarms?? in your manual and/or call [facility] at . Follow up Appointment: Doctor's Phone [...] by mouth 0 01/23/2018 every evening B Hqrglfc-A-Wcsod Acid Take 1 mg by mouth 0 [...] with his aunt who is also his WATER TREATMENT OPERATOR. RN, PT and WOC service referral sent to [facility] in [place], which patient has used inthe past. Aunt to transport at [place]. No other SS needs identified. SW avail should other [place] needs arise. Isis Stanley RN - 12/19/2017 3:30 PM CDT [facility] wound vac serial number [id number] delivered to patient and family in his room. Signed proof of delivery faxed to [facility] at . Anya Tapia LSW - 12/19/2017 2:55 PM CDT Care Transition Initial Assessment - SW ? Met with: Patient, Aunt Thelma and Uncle Chip. Active Problems: Foot ulcer, left (H) Steal syndrome of dialysis vascular access (H) DATA Lives With: aunt who Is also patient's WATER TREATMENT OPERATOR Living Arrangements: house with a ramp Description of Support System: Supportive, Involved. Patient lives with his aunt who is his WATER TREATMENT OPERATOR and also has the assist of another WATER TREATMENT OPERATOR at times as well as Thelma's 2 sons who also live with her can assist with heavy transfers and assist into house. Who is your support system?: WATER TREATMENT OPERATOR- Aunt Thelma Identified issues/concerns regarding health management: transferring and mobility ability post surgery ? Resources List: Home Care Quality Of Family Relationships: supportive, helpful, involved Transportation Available: family or friend will provide Thelma coordinates transport to and from dialysis. Patient has a Drop Forger through [facility]- Anya [phone], fax: [phone] Patient has used [facility] out of [place] in the past and worked with LINDA Rome. ASSESSMENT Cognitive Status: awake, alert and unsure of orientation Concerns to be addressed: Whether physical needs can be met at home . Patient's aunt/WATER TREATMENT OPERATOR Thelma indicates she has been patient's WATER TREATMENT OPERATOR for many years and assists with all [...] Patient anticipates discharging to: Home . ? Estrella Guillen MD - 12/19/2017 10:21 AM [...] outpatient portable wound vac. - Consulting social studies department chair for discharge planning. Interval History: Vital signs [...] Estrella (Rashad) MD [facility] Fellow (x) Anya Tapia LSW - 12/19/2017 10:05 AM [...] health care and followed up by the team foreman would been seeing the patient prior to [...] in agreement with plan of care Yes [facility] AM-PAC??? 6 Clicks V.2 Basic Mobility Inpatient [...] in (pt says he otherwise stays on [facility] main level) Transportation Available (pt not clear, [...] No deficits were identified Grooming Level of [place]: Grooming stand-by assist Physical Assist/Nonphysical Assist: Grooming [...] in agreement with plan of care Yes [facility] AM-PAC TM 6 Clicks ?? 2016, Trustees of [facility], under license to [employer] All rights reserved. 6 Clicks Short Forms Daily Activity Inpatient Short Form [facility]-PAC??? 6 Clicks Daily Activity Inpatient Short Form [...] Rate: 80 Resp: 16 SpO2: 100 % S2Tyumsx: None (Room air) General: Awake, alert and [...] Brunson MD - 12/17/2017 12:53 PM CST [facility] Renal Progress Note SHORTHAND PATEL FOR [...] medications, labs and imaging. Chi Brunson MD [facility] Consultants - Nephrology [phone] SECURITIES Estrella Guillen MD - 12/17/2017 10:06 AM [...] 0.6 12/16/2015 INR 1.54 (H) 12/17/2017 Estrella (Rashad) MD [facility] Surgery Fellow (p) SECURITIES Angie Gotti RN - 12/17/2017 9:31 AM CST Potassium [...] done and questions answered. See flowsheet in [employer] for further details and post assessment. Machine water alarm in place and functioning. Pt returned via wheelchair Vascular Access: Aseptic prep done for both on/off. Report received from:Irina Romero R.N. Report given to:Irina Romero R.N. HEPATITIS B SURFACE ANTIGEN neg DATE 06/04/14 HEPATITIS B SURFACE ANTIBODY Immune DATE 07/05/17 Chlorine/Chloramine water system checked every 4 hours. Outpatient Dialysis at [facility] SECURITIES Isis Stanley RN - 12/16/2017 3:39 PM CST Completed and signed wound vac orders faxed to [facility] with supporting documents to . SECURITIES Estrella Guillen MD - 12/16/2017 3:35 PM [...] Estrella (Rashad) MD [facility] Surgery Fellow (u) SECURITIES Tracey Estrada - 12/16/2017 9:15 AM CST Admission medication history interview status for the 12/16/2017 admission is complete. See [facility] admission navigator for prior to admission medications Medication history source reliability:Good Medication history interview source(s):Patient Medication history resources (including written lists, pill bottles, clinic record):None Primary pharmacy.[facility] Additional medication history information not noted on PROJECT MANAGEMENT SPECIALIST med list :None Time spent in this activity: 45 minutes Prior to Admission medications Medication Sig Last Dose Taking? Auth Provider BISACODYL PO Take 10 mg by mouth four times a week (Takes 2 x 5mg tablet = 10mg dose) 12/14/2017 Yes Reported, Patient ATORVASTATIN CALCIUM PO Take 20 mg by mouth every evening 12/15/2017 at pm Yes Reported, Patient B Ivujuzc-W-Cpgfn Acid (HARRIS CAPS PO) Take 1 mg [...] 12/13/2017 at pm Unknown, Entered By History SECURITIES documented in this encounter Consult Notes Job Her MD - 12/16/2017 3:27 PM CSTAssociated Order(s): NEPHROLOGY IP CONSULT RENAL CONSULTATION NOTE REFERRING MD: Estrella Guillen MD REASON FOR CONSULTATION: ESRD HPI: 43 y.o man with ESRD, DM, hypertension and PVD with non-healing ulcer 2/2 steal syndrome, s/p angioplasty of the L thigh AVG. Patient gets dialysis TTS at [facility]. His last treatment was on Tuesday. He [...] mg Oral Once per day on Sun e Padmaja Sat ??? calcium acetate 1,334 mg Oral [...] of Epogen with HD Job Her MD [facility] Consultants - Nephrology Office Pager: [phone] SECURITIES documented in this encounter Nursing Notes Karen Darby RN - 12/16/2017 1:28 PM CST Pt stable. Okay to transfer to floor per Dr. Gonzales SECURITIES Arianna Louie RN - 12/16/2017 1:01 PM CST Pts aunt by to see patient. SECURITIES Arianna Louie RN - 12/16/2017 12:[address] Saravia by to see patient. SECURITIES documented in this encounter Miscellaneous Notes Plan of Care - Kimmy Strickland PT - 12/19/2017 5:32 PM CDT Problem: Patient Care Overview Goal: Plan of Care/Patient Progress Review Physical Therapy Discharge Summary Reason for therapy discharge: Discharged to home with home therapy. Progress towards therapy goal(s). See goals on Care Plan in [facility] electronic health record for goal details. [...] goal(s). See goals on Care Plan in Epic electronic health record for goal details. Goals not met. Barriers to achieving goals: discharge from facility. Therapy recommendation(s): Recommended d/c to TCU. Pt d/c home with family A. Plan of Care - Steven Sosa RN - 12/19/2017 3:19 PM CDT [...] Overview Goal: Plan of Care/Patient Progress Review Team Psychologist PT Patient plan for discharge: not stated [...] Overview Goal: Plan of Care/Patient Progress Review Team Psychologist OT Patient plan for discharge: unknown Current [...] with use of a cane at baseline. Team Psychologist PT Patient plan for discharge: None stated. [...] 4:50 PM Plan of Care - Graham Long OT - 12/18/2017 1:17 PM CDT Problem: [...] he can do his basic ADLS himself. Team Psychologist OT Patient plan for discharge: Unknown at [...] with toe touch only to L. Foot. SECURITIES Plan of Care - Esme Reed RN [...] D/C pending, nursing will continue to monitor. SECURITIES Plan of Care - Magda Piña RN [...] Saline locked. Legally blind. Anticipating dialysis tomorrow. SECURITIES Pharmacy-Anticoagulation Service - Angela Kay [facility] - 12/16/2017 4:59 PM CST Clinical Pharmacy - Warfarin Dosing Consult Pharmacy has been consulted to manage this patient???s warfarin therapy. Indication: Other - specify in comments (high risk dialysis graft for thrombosis) Therapy Goal: INR 2-3 Warfarin Prior to Admission: Yes Warfarin PROJECT MANAGEMENT SPECIALIST Regimen: 5 mg every evening. INR Date Value Ref Range Status 12/16/2017 2.15 (H) 0.86 - 1.14 Final 12/16/2017 6.98 (HH) 0.86 - 1.14 Final Comment: Critical Value called to and read back by ANNA LAMAS AT [address] Guillen - INR this [...] if the warfarin goals change. Angela Kay, PharmD SECURITIES Plan of Care - Twila Mcnulty, LINDA - 12/16/2017 3:21 PM CST Problem: Patient Care Overview Goal: Plan of Care/Patient Progress Review Outcome: No Change A/O x4. VSS on 4L NC; HTN. LS diminished. CMS intact. Left leg site, small SS drainage. Wound vac @ 125. Doppler pulses, +1-2. Tolerating dialysis diet. SECURITIES Op Note - Rober Saravia MD - [...] of outflow venous stenosis(8 x 40 mm Cortland balloon). 2. Banding of inflow portion of left thigh ProCol dialysis graft. 3. Full-thickness/subcutaneous excisional debridement, left lateral heel ulcer (5.5 x 3.5 x 3 cm). Application of negative pressure dressing. SURGEON: Rober Saravia MD AIRCRAFT SEAT UPHOLSTERER: Estrella Guillen MD (vascular fellow) ANESTHESIA: General LMA. PREOPERATIVE MEDICATIONS: Ancef 2 grams IV. INDICATIONS: A 52-year-old patient who is on chronic hemodialysis. He has had multiple access challenges and has a patent left kvqbs-dii-juen popliteal to proximal thigh superficial femoral vein [...] the graft followed by aguidewire and a 7-Icelandic sheath. A Glidewire was then used under fluoroscopic guidance to pass up beyond the venous anastomosis where the moderate stenosis was appreciated. Fistulogram was performed confirming this was the site of the stenosis. We selected an 8 x 40 mm Cortland balloon. This was positioned under fluoroscopic control [...] Name: JULIO CESAR SANDHU MRN: [id number] Account: [id number] : 1965 Procedure Date: 12/16/2017 Document: [id number] cc: Rober Saravia MD Brief Op Note - Estrella Guillen MD - 12/16/2017 12:27 PM CST [facility] Brief Operative Note Pre-operative diagnosis: NON HEALING [...] Contaminated Surgeon: Rober Saravia MD Assistants(s): Estrella Guillen MD (Alex) Estimated blood loss: 10 ml Specimens: None Findings: 1) Flow through the AV-graft was 600 mL/min after banding 2) Banding using bovine pericardial patch Estrella Guillen MD (Alex) Vascular Surgery Fellow (q) SECURITIES documented in this encounter Plan of Treatment Scheduled Referrals Name Type Priority Associated Diagnoses Order [facility] nursing Referral Routine Skin ulcer [...] Routine 12/17/2017 12:47 Results for this PM [facility] procedure are i n the results section. BASIC METABOLIC PANEL STAT 12/17/2017 8:30 AM Results for this [facility] procedure are i n the results section. CBC WITH PLATELETS STAT 12/17/2017 8:30 AM Res ults for this VP [facility]IES procedure are i n the results section. INR Routine 12/17/2017 7:05 AM Results f or this [facility]IES procedure are i n the results section. INR Routine 12/16/2017 3:09 PM Results f or this [facility]IES procedure are i n the results section. GLUCOSE BY METER Routine 12/16/2017 12:32 Results for this PM [facility] procedure are i n the results section. XR SURGERY NIHARIKA FLUORO Routine 12/16/2017 11:40 R esults for this LESS THAN 5 MIN W AM VP [facility]ITIES procedure are in STILLS the results section. IRRIGATION AND 12/16/2017 10:16 NON HEALING LEFT DEBRIDEMENT, FOOT AM VP SECURITIES LATERAL HEEL ULCER WITH PAIN REVISION, 12/16/2017 10:16 NON HEALING LEFT ARTERIOVENOUS FISTULA, AM VP SECURITIES LATERAL HEEL ULCER LOWER EXTREMITY WITH PAIN INR STAT 12/16/2017 9:25 AM Results f or this VP SECURITIES procedure are i n the results section. BASIC METABOLIC PANEL STAT 12/16/2017 9:25 AM Results for this VP [facility]IES procedure are i n the results section. LAB RESULT - HIM SCAN 12/06/2017 12:00 AM [facility]IES documented in this encounter Results Heparin Xa (10a) Level (12/19/2017 7:18 AM CDT) P athologist Signature Heparin 10A 0.23 IU/mL 12/19/2017 [place] Level 7:42 AM CDT [facility] Comment: Therapeutic Range: ??UFH: ?? 0.15-0.35 IU/mL [...] LAB - BLOOD ORDERABLES Performing Organization Address City/[facility]/ZIP Code Phon e Number [facility] [address] [place] [address] [phone] [facility] [address] [place] [address], [place] [phone] (ABNORMAL) INR (12/19/2017 7:18 AM CDT) P athologist Signature INR 2.13 (H) 0.86 - 1.14 12/19/2017 [place] 7:42 AM CDT [facility] Specimen Anatomical Collection Method Collection Time Receive d Time (Source) Location / / Volume Laterality Blood specimen 12/19/2017 7:18 AM 018 7:25 (specimen) CDT AM CDT Estrella Guillen MD LAB - BLOOD ORDERABLES Performing Organization Address City/[facility]/ZIP Code Phon e Number [facility] [address] [phone] [facility] [address] [place] [address], [place] [phone] Heparin Xa (10a) Level (12/19/2017 1:20 AM CDT) P athologist Signature Heparin 10A 0.32 IU/mL 12/19/2017 [place] Level 1:41 AM CDT [facility] Comment: Therapeutic Range: ??UFH: ?? 0.15-0.35 IU/mL [...] Address City/State/ZIP Code Phon e Number [facility] [address] [phone] [facility] [address] [address], [place] [phone] Heparin Xa (10a) Level (12/18/2017 3:45 PM CDT) athologist Signature Heparin 10A <0.10 IU/mL 12/18/2017 [place] Level 4:32 PM CDT [facility] Comment: Therapeutic Range: ??UFH: ?? 0.15-0.35 IU/mL [...] Number [facility] [address] [phone] [facility] [address] [address], [place] [phone] (ABNORMAL) CBC with platelets (12/18/2017 10:25 AM CDT) Analysis Performed At Patho logist Time Signature WBC 5.5 4.0 - 11.0 12/18/2017 [facility] 10e9/L 10:39 AM [facility] RBC Count 3.08 (L) 4.4 - 5.9 12/18/2017 [facility] 10e12/L 10:39 AM [facility] Hemoglobin 8.3 (L) 13.3 - 12/18/2017 [facility] 17.7 g/dL 10:39 AM [facility] Hematocrit 26.7 (L) 40.0 - 12/18/2017 [facility] 53.0 % 10:39 AM [facility] MCV 87 78 - 100 12/18/2017 [facility] fl 10:39 AM [facility] MCH 26.9 26.5 - 12/18/2017 [facility] 33.0 pg 10:39 AM [facility] MCHC 31.1 (L) 31.5 - 12/18/2017 [facility] 36.5 g/dL 10:39 AM [facility] RDW 15.7 (H) 10.0 - 12/18/2017 [facility] 15.0 % 10:39 AM [facility] Platelet Count 171 150 - 450 12/18/2017 [facility] 10e9/L 10:39 AM [facility] Specimen Anatomical Collection Method Collection Time Receive d Time (Source) Location / / Volume Laterality Blood specimen 12/18/2017 10:25 8 (specimen) AM CDT 10:36 AM CDT Estrella Guillen MD LAB - BLOOD ORDERABLES Performing Organization Address City/State/ZIP Code Phon e Number [facility] [address] [phone] [place] [address] [place] [address], [place] [phone] (ABNORMAL) INR (12/18/2017 7:01 AM CDT) P athologist Signature INR 1.57 (H) 0.86 - 1.14 12/18/2017 [place] 7:43 AM T [facility] Specimen Anatomical Collection Method Collection Time Receive d Time (Source) Location / / Volume Laterality Blood specimen 12/18/2017 7:01 AM 018 7:29 (specimen) CDT AM CDT Estrella Guillen MD LAB - BLOOD ORDERABLES Performing Organization Address City/State/ZIP Code Phon e Number [facility] [address] [place] [address] [phone] [facility] [address] [place] [address], [place] [phone] (ABNORMAL) CBC with platelets (12/18/2017 7:01 AM CDT) Analysis Performed At Patho logist Time Signature WBC 5.1 4.0 - 11.0 12/18/2017 [facility] 10e9/L 7:32 AM [facility] RBC Count 3.03 (L) 4.4 - 5.9 12/18/2017 [facility] 10e12/L 7:32 AM [facility] Hemoglobin 8.2 (L) 13.3 - 12/18/2017 [facility] 17.7 g/dL 7:32 AM [facility] Hematocrit 26.2 (L) 40.0 - 12/18/2017 [facility] 53.0 % 7:32 AM [facility] MCV 87 78 - 100 12/18/2017 [facility] fl 7:32 AM [facility] MCH 27.1 26.5 - 12/18/2017 [facility] 33.0 pg 7:32 AM [facility] MCHC 31.3 (L) 31.5 - 12/18/2017 [facility] 36.5 g/dL 7:32 AM [facility] RDW 15.9 (H) 10.0 - 12/18/2017 [facility] 15.0 % 7:32 AM T [facility] Platelet Count 168 150 - 450 12/18/2017 [place] 10e9/L 7:32 AM T [facility] Specimen Anatomical Collection Method Collection Time Receive d Time (Source) Location / / Volume Laterality Blood specimen 12/18/2017 7:01 AM 018 7:29 (specimen) CDT AM CDT Chi Brunson MD LAB - BLOOD ORDERABLES Performing Organization Address City/State/ZIP Code Phon e Number [facility] [address] [place] [address] [phone] [facility] [address] [place] [address], [place] [phone] (ABNORMAL) Glucose by meter (12/17/2017 12:47 PM VP [facility]IES) P athologist Signature Glucose 119 (H) 70 - 99 12/17/2017 POINT OF CARE mg/dL 1:04 PM VP [facility]IES TEST, GLUCOSE Specimen Anatomical Collection Method Collection Time Receive d Time (Source) Location / / Volume Laterality 12/17/2017 12:47 12/17/2017 1:04 PM VP [facility] PM VP SECURITIES Rober Saravia MD LAB - BEAKER POCT Performing Organization Address City/State/ZIP Code Phon e Number [facility] POINT OF CARE TEST, GLUCOSE POINT OF CARE TEST, GLUCOSE (ABNORMAL) Basic metabolic panel (12/17/2017 8:30 AM [facility]IES) Patholo gist Method Time Signature Sodium 125 (L) 133 - 144 12/17/2017 [place] mmol/L 11:03 AM [facility] Potassium 5.1 3.4 - 5.3 12/17/2017 [place] mmol/L 11:03 AM [facility] Chloride 84 (L) 94 - 109 12/17/2017 [place] mmol/L 11:03 AM [facility] Carbon Dioxide 21 20 - 32 12/17/2017 [place] mmol/L 11:03 AM [facility] Anion Gap 20 (H) 3 - 14 12/17/2017 [place] mmol/L 11:03 AM [facility] Glucose 100 (H) 70 - 99 12/17/2017 [place] mg/dL 11:03 AM [facility] Urea Nitrogen 114 (H) 7 - 30 12/17/2017 [place] mg/dL 11:03 AM [facility] Creatinine 16.10 (H) 0.66 - 12/17/2017 [facility] 1.25 mg/dL 11:03 AM [facility] GFR Estimate 3 (L) >60 12/17/2017 [place] mL/min/1.7 11:[address] Comment: Non GFR Calc GFR Estimate If 4 (L) >60 mL/min/1.7m2 12/17/2017 11:[address] [facility] Comment: GFR Calc Calcium 9.0 8.5 - 10.1 mg/dL 12/17/2017 11:03 AM [facility] Specimen Anatomical Collection Method Collection Time Receive d Time (Source) Location / / Volume Laterality Blood specimen 12/17/2017 8:30 AM 018 (specimen) [facility] 10:28 AM [facility] Chi Brunson MD LAB - BLOOD ORDERABLES Performing Organization Address City/State/ZIP Code Phon e Number [facility] [address] [phone] [facility] [address] [phone], [facility] [[email or web address]] [phone] (ABNORMAL) CBC with platelets (12/17/2017 8:30 AM [facility]) Analysis Performed At Patho logist Time Signature WBC 6.6 4.0 - 11.0 12/17/2017 [place]ERT[place] 10e9/L 10:37 AM [facility] RBC Count 3.26 (L) 4.4 - 5.9 12/17/2017 [place]ERT[place] 10e12/L 10:37 AM [facility] Hemoglobin 8.7 (L) 13.3 - 12/17/2017 [facility] 17.7 g/dL 10:37 AM [facility] Hematocrit 27.5 (L) 40.0 - 12/17/2017 [facility] 53.0 % 10:37 AM [facility] MCV 84 78 - 100 12/17/2017 [facility] fl 10:37 AM [facility] MCH 26.7 26.5 - 12/17/2017 [facility] 33.0 pg 10:37 AM [facility] MCHC 31.6 31.5 - 12/17/2017 [facility] 36.5 g/dL 10:37 AM [facility] RDW 15.9 (H) 10.0 - 12/17/2017 [facility] 15.0 % 10:37 AM [facility] Platelet Count 223 150 - 450 12/17/2017 [facility] 10e9/L 10:37 AM [facility] Specimen Anatomical Collection Method Collection Time Receive d Time (Source) Location / / Volume Laterality Blood specimen 12/17/2017 8:30 AM 018 (specimen) [facility] 10:28 AM [facility] Chi Brunson MD LAB - BLOOD ORDERABLES Performing Organization Address City/State/ZIP Code Phon e Number [facility] [address] [place] [address] [facility] [address] [place] [address], [place] [phone] (ABNORMAL) INR (12/17/2017 7:05 AM [facility]) P athologist Signature INR 1.54 (H) 0.86 - 1.14 12/17/2017 [facility] 7:44 AM [facility] Specimen Anatomical Collection Method Collection Time Receive d Time (Source) Location / / Volume Laterality Blood specimen 12/17/2017 7:05 AM 018 7:29 (specimen) [facility] AM [facility] Estrella Guillen MD LAB - BLOOD ORDERABLES Performing Organization Address City/State/ZIP Code Phon e Number [facility] [address] [place] [address] [facility] [address] [place] [address], [place] [phone] (ABNORMAL) INR (12/16/2017 3:09 PM [facility]) P athologist Signature INR 2.15 (H) 0.86 - 1.14 12/16/2017 [facility] 4:34 PM [facility] Specimen Anatomical Collection Method Collection Time Receive d Time (Source) Location / / Volume Laterality Blood specimen 12/16/2017 3:09 PM 018 3:40 (specimen) [facility] PM [facility] Estrella Guillen MD LAB - BLOOD ORDERABLES Performing Organization Address City/State/ZIP Code Phon e Number [facility] [address] [place] [address] [facility] [address] [place] [address], [place] [phone] (ABNORMAL) Glucose by meter (12/16/2017 12:32 PM [facility]) P athologist Signature Glucose 111 (H) 70 - 99 12/16/2017 PO[facility]ARE mg/dL 12:43 PM [facility] TEST, GLUCOSE Specimen Anatomical Collection Method Collection Time Receive d Time (Source) Location / / Volume Laterality 12/16/2017 12:32 12/16/2017 PM [facility] 12:43 PM [facility] Rober Saravia MD LAB - BEAKER POCT Performing Organization Address City/State/ZIP Code Phon e Number [facility] POINT OF CARE TEST, GLUCOSE POINT OF CARE TEST, GLUCOSE XR Surgery NIHARIKA L/T 5 Min Fluoro w Stills (12/16/2017 11:40 AM [facility]) Anatomical Region Laterality Modality Abdomen/Pelvis Radio Fluoroscopy Specimen (Source) Anatomical Location Collection Method / Collectio n Time Received Time / Laterality Volume Impressions 12/16/2017 5:51 PM [facility] IMPRESSION: Three spot fluoroscopic images obtained intraoperatively during surgical repair of a thigh fistul a. The fistula is for dialysis. Total fluoroscopic time 1.4 mi nutes. PATRICIA OLVERA MD Narrative 12/16/2017 5:51 PM [facility] SURGERY C-ARM FLUOROSCOPY LESS THAN 5 MINUTES WITH STILLS ??12/16/2017 11:40 AM HISTORY: Left femoral artery. COMPARISON: November 19, 2015. Procedure Note Patricia Olvera MD - 12/16/2017 SURGERY C-ARM FLUOROSCOPY LESS THAN 5 NV NUTES WITH STILLS 12/16/2017 11:40 AM HISTORY: Left femoral artery. COMPARISON: November 19, 2015. IMPRESSION: Three spot fluoroscopic imag es obtained intraoperatively during surgical repair of a thigh fistul a. The fistula is for dialysis. Total fluoroscopic time 1.4 mi nutes. PATRICIA OLVERA MD Rober Saravia MD IMG DIAGNOSTIC IMAGING ORDER NADIA (ABNORMAL) INR (12/16/2017 9:25 AM [facility]) P athologist Signature INR 6.98 (HH) 0.86 - 1.14 12/16/2017 [facility] 9:53 AM [facility] Comment: Critical Value called to and read back Cheo CRUZ PREOP AT 0953 EJV Specimen Anatomical Collection Method Collection Time Receive d Time (Source) Location / / Volume Laterality Blood specimen 12/16/2017 9:25 AM 018 9:33 (specimen) [facility] AM [facility] SEC[facility]IES Rober Saravia MD LAB - BLOOD ORDERABLES Performing Organization Address City/State/ZIP Code Phon e Number [facility] [address] [phone] [facility] [address] [id number], [facility] [[email or web address]] [phone] (ABNORMAL) Basic metabolic panel (12/16/2017 9:25 AM [facility]) Patholo gist Method Time Signature Sodium 129 (L) 133 - 144 12/16/2017 [place] mmol/L 9:51 AM [facility] Potassium 4.9 3.4 - 5.3 12/16/2017 [place] mmol/L 9:51 AM [facility] Chloride 88 (L) 94 - 109 12/16/2017 [place] mmol/L 9:51 AM [facility] Carbon Dioxide 25 20 - 32 12/16/2017 [place] mmol/L 9:51 AM [facility] Anion Gap 16 (H) 3 - 14 [facility]/L 9:51 AM [facility] Glucose 87 70 - 99 12/16/2017 [place] mg/dL 9:51 AM [facility] Urea Nitrogen 90 (H) 7 - 30 12/16/2017 [place] mg/dL 9:51 AM [facility] Creatinine 15.00 (H) 0.66 - 12/16/2017 [facility] 1.25 mg/dL 9:51 AM [facility] GFR Estimate 3 (L) >60 12/16/2017 [place] mL/min/1.7 9:[address] Comment: Non GFR Calc GFR Estimate If 4 (L) >60 mL/min/1.7m2 12/16/2017 9:[address] [facility] Comment: GFR Calc Calcium 9.3 8.5 - 10.1 mg/dL 12/16/2017 9:51 AM [facility] Specimen Anatomical Collection Method Collection Time Receive d Time (Source) Location / / Volume Laterality Blood specimen 12/16/2017 9:25 AM 018 9:33 (specimen) [facility] AM [facility] Rober Saravia MD LAB - BLOOD ORDERABLES Performing Organization Address City/State/ZIP Code Phon e Number [facility] [address] [phone] [facility] [address] [phone], [facility] [[email or web address]] [phone] LAB RESULT - HIM SCAN (12/06/2017 12:00 AM [facility]) Specimen (Source) Anatomical Location Collection Method / Collectio n Time Received Time / Laterality Volume 12/06/2017 Narrative This result has an attachment that is no t available. 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) Other complications due to renal dialysi s device, implant, and graft documented in this encounter Administered Medications Inactive Administered Medications - up to 3 most recent administrations Medication Order MAR Action Action Date Dose Rate Site 0.9% sodium chloride BOLUS New Bag 12/17/2017 8:58 AM [facility] 250 mLs Intravenous, 250 mL, ONCE IN DIALYSIS/CRRT, On 12/17/17 at 0730, For 1 dose, For patient prime during dialysis, Dialysis acetaminophen (TYLENOL) tablet 650 mg Given 12/19/2017 6:51 AM CDT 650 mg 650 mg, Oral, EVERY 4 HOURS PRN, other, multimodal surgical pain management along with NSAIDS and opioid medication as indicated based on pain control and physical function., Starting on Tue12/19/17 at 0000, May give first dose 4 hours after last scheduled dose of acetaminophen Maximum acetaminophen dose from all sources = 75 mg/kg/day not to exceed 4 grams/day., Post-procedure acetaminophen (TYLENOL) tablet 975 mg Given 12/19/2017 11:45 AM CDT 975 mg 975 mg, Oral, EVERY 8 HOURS, First dose on Tue12/16/17 at 1430, For 3 days, Do not use if patient has an active opioid/acetaminophen combined analgesic product ordered for pain. Maximum acetaminophen dose from all sources = 75 mg/kg/day not to exceed 4 grams/day., Post-procedure Given 12/19/2017 12:48 AM CDT 975 mg Given 12/18/2017 4:25 PM CDT 975 mg amLODIPine (NORVASC) tablet 10 mg Given 12/19/2017 10:28 AM CDT 10 mg 10 mg, Oral, FOUR TIMES WEEKLY (Once per day on Sun Tue), First dose on Tue12/18/17 at 0800, On NON-dialysis days. Given 12/18/2017 9:06 AM CDT 10 mg atorvastatin (LIPITOR) tablet 20 mg Given 12/18/2017 7:25 PM CDT 20 mg 20 mg, Oral, EVERY EVENING, First dose on Tue12/16/17 at 2000 Given 12/17/2017 8:48 PM [facility] 20 mg Given 12/16/2017 8:38 PM [facility] 20 mg bisacodyl (DULCOLAX) EC tablet 10 mg Given 12/18/2017 9:07 AM CDT 10 mg 10 mg, Oral, FOUR TIMES WEEKLY (Once per day on Tue), First dose on Tue12/17/17 at 0800 Given 12/17/2017 12:56 PM [facility] 10 mg calcium acetate (PHOSLO) capsule 1,334 m g [...] Tue12/16/17 at 2000 Given 12/17/2017 8:48 PM [facility] 2,000 Units Given 12/16/2017 8:38 PM [facility] 2,000 Units doxercalciferol (HECTOROL) injection 4.5 mcg Given 12/17/2017 9:00 AM [facility] 4.5 mcg 4.5 mcg, Intravenous, ONCE IN DIALYSIS/CRRT, On 12/17/17 at 0730, For 1 dose, GIVE DURING DIALYSIS, Dialysis epoetin mauricio (EPOGEN/PROCRIT) injection Given 12/18/19 9:56 AM [facility] 6,000 Units 6,000 Units 6,000 Units, Intravenous, ONCE, On 12/17/17 at 0730, For 1 dose, Give during dialysis. For ordered doses up to 500 units/kg, give IV Push undiluted over 1 minute., Dialysis heparin (porcine) injection 500 Units Given 12/17/2017 9:01 AM [facility] 500 Units 500 Units, Hemodialysis Machine, ONCE IN DIALYSIS/CRRT, On 12/17/17 at 0730, For 1 dose, LOADING DOSE Administer loading dose prior to heparin infusion. PRE DIALYSIS RUN Dialysis, Dialysis heparin 10,000 units/10 mL New Bag 12/17/2017 9:01 AM [facility] 500 Units/hr 0.5 mL/hr infusion (DIALYSIS USE) 500 Units/hr (0.5 mL/hr), Hemodialysis Machine, CONTINUOUS, Starting on 12/17/17 at 0730, DURING DIALYSIS TREATMENT, Dialysis heparin infusion 25,000 units New Bag 12/19/2017 2:21 AM CDT 1 ,200 Units/hr 12 mL/hr in 0.45% NaCl 250 mL Intravenous, at 12 mL/hr, CONTINUOUS, Starting on 12/18/17 at 1015, Heparin 10a(Xa) = 0.23 12/19/2017 Goal level of: 0.15-0.35 IU/mL Heparin instructions: Continue rate of 1200 units/hr Recheck next heparin 10a(Xa): in the AM. Heparin dosed per [facility] Protocol. Monitor platelets every three days while on anticoagulation therapy. Rate/Dose Verify 12/19/2017 1:55 AM CDT 1,200 Units/hr 12 mL/hr Rate/Dose Change 12/18/2017 6:29 PM CDT 1,200 Units/hr 12 mL/hr heparin Loading Dose bolus dose from Given 12/18/2017 6:31 PM CD T 3,000 Units infusion pump 3,000 Units 3,000 Units, Intravenous, ONCE, On 12/18/17 at 1815, For 1 dose, Nurse to administer dose from existing infusion. If no infusion bag or syringe for this order is available, contact pharmacist to re-enter medication order. heparin Loading Dose bolus dose from Given 12/18/2017 10:26 AM C DT 4,500 Units infusion pump 4,500 Units 4,500 Units, Intravenous, ONCE, On 12/18/17 at 1015, For 1 dose, Nurse to administer dose from existing infusion. If no infusion bag or syringe for this order is available, contact pharmacist to re-enter medication order. hydrALAZINE (APRESOLINE) injection 10 mg Given 12/19/2017 6:54 AM CDT 10 mg 10 mg, Intravenous, EVERY 4 HOURS PRN, high blood pressure, For SBP > 140, Administer over 1 Minutes, Starting on 12/18/17 at 1827, For ordered doses up to 40 mg, give IV Push undiluted over 1 minute. Given 12/19/2017 1:12 AM CDT 10 mg labetalol (NORMODYNE/TRANDATE) injection 20 mg Given 12/18/2017 6:46 PM CDT 20 mg 20 mg, Intravenous, EVERY 4 HOURS PRN, high blood pressure, For SBP > 140 and HR > 60. DOn't give if HR < 60., Administer over 2-8 Minutes, Starting on 12/18/17 at 1827, For ordered doses up to 80 mg, give IV Push undiluted. Give each 20 mg over 2 minutes. lisinopril (PRINIVIL/ZESTRIL) tablet 40 mg Given 12/19/2017 9:54 AM CDT 40 mg 40 mg, Oral, DAILY, First dose on 12/17/17 at 0900 Given 12/18/2017 9:01 AM CDT 40 mg Given 12/17/2017 12:52 PM [facility] 40 mg metoprolol tartrate (LOPRESSOR) tablet 2 00 mg Given 12/16/2017 8:38 PM [facility] 200 mg 200 mg, Oral, EVERY Tue - BID, First dose on Tue12/16/17 at 2000, Take on MWFSun, on Non-dialysis days metoprolol tartrate (LOPRESSOR) tablet 2 00 mg Given 12/19/2017 9:53 AM CDT 200 mg 200 mg, Oral, USER SPECIFIED (2 times per day on Sun Tue), First dose on 12/18/17 at 0800, Takes 200mg BID on Non-Dialysis days ([place], Tue, Tue, Tue) Given 12/18/2017 7:25 PM [...] or analgesic side effects. Hold while on WATER TREATMENT OPERATOR or with regular IV opioid dosing. Maximum total is 60 mg in 24 hours., Post-procedure Given 12/19/2017 12:55 AM CDT 5 mg Given 12/18/2017 6:53 PM CDT 5 mg senna-docusate (SENOKOT-S;PERICOLACE) Given 12/17/2017 12:52 PM [facility] 1 tablet 8.6-50 MG per tablet 1 tablet 1 tablet, Oral, 2 TIMES DAILY, First dose on Tue12/16/17 at 2100, If no bowel movement in 24 hours, increase to 2 tablets PO. Hold for loose stools., Post-procedure Given 12/16/2017 8:38 PM [facility] 1 tablet senna-docusate (SENOKOT-S;PERICOLACE) Given 12/19/2017 9:55 [...] Given 12/18/2017 5:12 AM CDT 3 mLs warfarin (COUMADIN) tablet 2.5 mg Given 12/16/2017 5:54 PM [facility] 2.5 mg 2.5 mg, Oral, ONCE AT 6PM, On 12/16/17 at 1800, For 1 dose warfarin (COUMADIN) tablet 4 mg Given 12/17/2017 7:03 PM [facility] 4 mg 4 mg, Oral, ONCE AT 6PM, On 12/17/17 at 1800, For 1 dose, Pharmacist Dose per: Warfarin Dosing Service. warfarin (COUMADIN) tablet 4 mg 4 mg, Oral, ONCE AT 6PM, On 12/19/17 at 1800, For 1 dose, Pharmacist Dose per: Warfarin Dosing Service. warfarin (COUMADIN) tablet 5 mg Given 12/18/2017 6:07 PM CDT 5 mg 5 mg, Oral, ONCE AT 6PM, On 12/18/17 at 1800, For 1 dose, Pharmacist Dose per: Warfarin Dosing Service. documented in this encounter Active and Recently Administered Medications Due to Daylight Saving Time, this section may contain times in both [facility] and CDT. Scheduled Medication Order 12/17/2017 12/18/2017 12/19/2017 0.9% sodium chloride BOLUS (COMPLETED) 0858 (New Bag - Provider: Angie Gotti, LINDA) Intravenous, 250 mL, ONCE IN DIALYSIS, S at 12/17/17 at 0730, For 1 dose, For patient prime during dialysis, Dialysis acetaminophen (TYLENOL) tablet 975 mg (COMPLETED) 0610 (Given - Provider: Esme Reed RN)1351 (Given - Provider: Irina Romero RN) 0021 (Given - Provider: Cecilia Hawkins RN)0901 (Given - Provider: Irina Romero RN - Comment: Denies pain)1625 (Given - Provider: Magda Piña RN) 0048 (Given - Provider: Sharita Oswald RN)1145 (Given - Provider: Steven Sosa, LINDA) 975 mg, Oral, EVERY 8 HOURS, First dose on 12/16/17 at 1430, For 3 days, Do not [...] mg 2047 (Given - Prov ider: Cecilia Hawkins, LINDA) 1924 (Given - Provider: Magda Piña, LINDA) 20 mg, Oral, EVERY EVENING, First dose [...] Riggins RN) 0901 (Given - Provider: Elva Ordonez)1135 (Given - Provider: Irina Romero RN)1807 (Given - Provider: Magda Piña, LINDA) 0952 (Given - Provider: Steven Sosa, LINDA )1145 (Given - Provider: Steven Sosa RN) 1,334 mg, Oral, 3 TIMES DAILY WITH MEALS, First dose on Tue at 1800 cholecalciferol (vitamin D3) tablet 2,000 Units 2047 ( Given - Provider: Cecilia Hawkins, LINDA) 1924 (Given - Provider: Magda Piña, LINDA) 2,000 Units, Oral, EVERY EVENING, First dose on Tue12/16/17 at 20 00 doxercalciferol (HECTOROL) injection 4.5 mcg (COMPLETE D) 0900 (Given - Provider: Angie Gotti, LINDA) 4.5 mcg, Intravenous, ONCE IN DIALYSIS, 12/17/17 at 0730, For 1 dose, GIVE DURING DIALYSIS, Dialysis epoetin mauricio (EPOGEN/PROCRIT) injection 6,000 Units (C OMPLETED) 0956 (Given - Provider: Angie Gotti, LINDA) 6,000 Units, Intravenous, ONCE, Sat 12/17 at 0730, For 1 dose, Give during dialysis. For ordered doses up to 500 units/kg, give IV Push undiluted over 1 minute., Dialysis heparin (porcine) injection 500 Units (COMPLETED) 09 (Given - Provider: Angie Gotti, LINDA) 500 Units, Hemodialysis Machine, ONCE IN DIALYSIS, 12/17/17 at 0730, For 1 dose, LOADING DOSE Administer loading dose prior to heparin infusion. PRE DIALYSIS RUN Dialysis, Dialysis heparin Loading Dose bolus dose from infusion pump 3,000 Uni ts (COMPLETED) 1831 (Given - Provider: Magda Piña, LINDA) 3,000 Units, Intravenous, ONCE, Sun 12/18 at [...] 1252 (Given - Provider: Irina Romero RN) 09 (Given - Provider: Irina Romero RN) 0954 (Given - Provider: Steven Sosa, RN) 40 mg, Oral, DAILY, First dose on 12/17/17 at 0900 metoprolol tartrate (LOPRESSOR) tablet 200 mg 09 (Given - Provider: Irina Romero RN)192 (Given - Provider: Magda Piña, LINDA) 0953 (Given - Provider: Steven Sosa, RN) 200 mg, Oral, USER SPECIFIED (2 times pe r day on Sun Tue), First dose on 12/18/17 at 0800, Takes 200mg BID on Non-Dialysis days (, Tue, Tue, Tue) senna-docusate (SENOKOT-S;PERICOLACE) 8. 6-50 MG per tablet 1 tablet(Linked Group 1) 1252 (Given - Provider: Elva Ordonez)2047 (See Alternative - Provider: Cecilia Hawkins RN) 0900 (See Alternative - Provider: Irina Romero RN)192 [...] Elva Ordonez)192 (Given - Provider: Magda Piña RN)2099 (Canceled Entry - Provider: Magda Piña RN) 0955 (Given - Provider: Steven Sosa RN ) 2 tablet, Oral, 2 TIMES DAILY, First dos e on Tue12/16/17 at 2100, Hold for loose stools., Post-procedure sodium chloride (PF) 0.9% PF flush 3 mL 0610 (Given - Provider: Esme Reed RN)1352 (Given - Provider: Irina Romero RN)2048 (Given - Provider: Cecilia Hawkins, LINDA)2215 (Canceled Entry - Provider: Cecilia Hawkins RN) [...] EVERY 8 HOURS, Firs t dose on 12/16/17 at 1415, And Q1H PRN, to lock peripheral IV dormant line., Post-procedure warfarin (COUMADIN) tablet 4 mg (COMPLETED) 190 (Give n - Provider: Vu Riggins, LINDA) [...] NCELED) 0901 (New Bag - Provider: Angie Gotti RN) 500 Units/hr (0.5 mL/hr), Hemodialysis M achine, at 0.5 mL/hr, CONTINUOUS, Starting 12/17/17 at 0730, DURING DIALYSIS TREATMENT, Dialysis heparin infusion 25,000 units in 0.45% NaCl 250 mL (CANCELED ) 1027 (New Bag - Provider: Irina Romero RN)1748 (Rate/Dose Verify - Provider: Magda Piña RN)1829 (Rate/Dose Change - Provider: Magda Piña RN) 0155 (Rate/Dose Verify - Provider: Sharita Oswald RN - Comment: no rate change)0221 (New Bag - Provider: Sharita Oswald RN) 1,200 Units/hr (12 mL/hr), Intravenous, at 12 mL/hr, CONTINUOUS, Starting 12/18/17 at 1015, Heparin 10a(Xa) = 0.23 12/19/2017 Goal level of: 0.15-0.35 IU/mL Heparin instructions: Continue rate of 120 0 units/hr Recheck next heparin 10a(Xa): in the AM. Heparin dosed per [facility] Protocol. Monitor platelets every three days while on anticoagulation therapy. PRN Medication Order 12/17/2017 12/18/2017 12/19/2017 acetaminophen (TYLENOL) tablet 650 mg 0651 (Given - Provider: Love Schmitt V RN) 650 mg, Oral, EVERY 4 HOURS [...] Sharita Oswald RN)0654 (Given - Provider: Love Lynch RN) 10 mg, Intravenous, EVERY 4 HOURS [...] mg 1740 (Given - Provider: Vu Riggins, LINDA) 1853 (Given - Provider: Magda Piña RN) 0055 (Give n - Provider: Sharita Oswald RN)1527 (Given - Provider: Nola Lizarraga RN) 5-10 mg, Oral, EVERY 4 HOURS [...] or analgesic side effects. Hold while on WATER TREATMENT OPERATOR or with regular IV opi oid dosing. [...]
Post-procedure documented in this encounter Care Teams Skate Maker Relationship Specialty Start Date End Date Preet Huff PCP - General 06/24/11 documented as of this encounter
--- OUTSIDE RECORDS SUMMARY | 2022-09-01 20:14 | XMS_ITS | Encounter Summary ---
:1965 Author Organization [place] Address [address] [facility] [place] [address] Care Team Providers Name Role Phone HuffPreet cool Primary Care Provider Encounter Details Date Type Department Care Team Description 07/29/2016 Orders Only [facility] Janell Edgar, ESRD (en d stage renal [facility] Mk a RN disease) (H) (Primary [address] [place] [address] Social History Tobacco Use Types Packs/Day Years Used Date Smoking Tobacco: Never Smokeless Tobacco: Never Alcohol Use Standard Drinks/Week Comments No 0 (1 standard drink = 0.6 oz pure alcoho l) Sex Assigned at Date Recorded Not on file documented as of this encounter Plan of Treatment Not on filedocumented as of this encounter Results US Ext Arterial Venous Dialys Acs Graft (09/06/2016 11:23 AM HUMAN PERFORMANCE PROFESSOR) Anatomical Region Laterality Modality Vascular, Abdomen/Pelvis Ultrasound Specimen (Source) Anatomical Location Collection Method / Collectio n Time Received Time / Laterality Volume Impressions 09/06/2016 12:58 PM HUMAN PERFORMANCE PROFESSOR IMPRESSION: 1. 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 Would recommend intervention in the short-term . It is likely this interval stenosis is related to intimal hyperplas ia. 2. Mild velocity elevation in the inflow SFA artery. The arterial molina diffusely calcified. Velocity is 2 79/169 cm/second with diameter of 3.4 mm. PATRICIA OLVERA MD Narrative 09/06/2016 12:58 PM HUMAN PERFORMANCE PROFESSOR ULTRASOUND ??EXTREMITY ARTERIAL VENOUS DIALYSIS ACCESS GRAFT 09/06/2016 11:23 AM HISTORY: 51-year-old male with left abov e-knee popliteal to proximal femoral ProCol mesenteric AV fistula. Th is was created on March 05, 2016. COMPARISON: June 02, 2016. TECHNIQUE: Color Doppler and spectral wa veform analysis performed throughout the ProCol fistula in adjacen t seneca artery and vein. FINDINGS: Inflow superficial femoral art philip is patent with diffusely calcified molina. Velocity just proximal to the AV anastomosis is 279/169 cm/second. AV anastomosis is pat ent with velocity of 556/274 cm/second. ProCol graft is patent. Total blood flow volume is 530 mL/minute, previously not measured. Diam eters throughout the bypass range from 6.7 to 13 mm. The venous anas tomosis is patent. There is visible narrowing in the outflow seneca vein with velocity of 447/290 cm/second. The visible diameter is 2.3 m m over a 15 mm segment. Previously, this area measured 7.8 mm. Procedure Note Patricia Olvera MD - 09/06/2016 ULTRASOUND EXTREMITY ARTERIAL VENOUS NGA LYSIS ACCESS GRAFT 09/06/2016 11:23 AM HISTORY: 51-year-old male with left abov e-knee popliteal to proximal femoral ProCol mesenteric AV fistula. Th is was created on March 05, 2016. COMPARISON: June 02, 2016. TECHNIQUE: Color Doppler and spectral wa veform analysis performed throughout the ProCol fistula in adjacen t seneca artery and vein. FINDINGS: Inflow superficial femoral art philip is patent with diffusely calcified omlina. Velocity just proximal to the AV anastomosis is 279/169 cm/second. AV anastomosis is pat ent with velocity of 556/274 cm/second. ProCol graft is patent. Total blood flow volume is 530 mL/minute, previously not measured. Diam eters throughout the bypass range from 6.7 to 13 mm. The venous anas tomosis is patent. There is visible narrowing in the outflow seneca vein with velocity of 447/290 cm/second. The visible diameter is 2.3 m m over a 15 mm segment. Previously, this area measured 7.8 mm. IMPRESSION: 1. 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 Would recommend intervention in the short-term . It is likely this interval stenosis is related to intimal hyperplas ia. 2. Mild velocity elevation in the inflow SFA artery. The arterial molina diffusely calcified. Velocity is 2 79/169 cm/second with diameter of 3.4 mm. PATRICIA OLVERA MD Jaxon Saravia MD IMG US ORDERABLES documented in this encounter Visit Diagnoses Diagnosis ESRD (end stage renal disease) (H) - [facility] End stage renal disease ESRD (end stage renal disease) (H) End stage renal disease documented in this encounter Care Teams Senior Security Engineer Relationship Specialty Start Date End Date Preet Huff PCP - General 06/24/11 documented as of this encounter
--- OUTSIDE RECORDS SUMMARY | 2022-09-01 20:14 | XMS_ITS | Encounter Summary ---
:1965 Author Organization [place] Address [facility] [place] [address] Care Team Providers Name Role Phone Huff, Preet Hans Primary Care Provider Encounter Details Date Type Department Care Team Description 04/25/2017 [facility] Jaxon Saravia MD [address] [id number] Stenosis of Encounter [facility] Michele Fuentes MD [facility] [address] [place] [address] arteriovenous Suites dialysis fistula, [address] initial encounter (H) [address] [place] [phone] Social History Tobacco Use Types Packs/Day Years Used Date Smoking Tobacco: Never Smokeless Tobacco: Never Alcohol Use Standard Drinks/Week Comments No 0 (1 standard drink = 0.6 oz pure alcoho l) Sex Assigned at Date Recorded Not on file documented as of this encounter Last Filed Vital Signs Vital Sign Reading Time Taken Comments Blood Pressure 135/59 04/25/2017 1:50 PM CDT Pulse 59 04/25/2017 12:10 PM CDT Temperature 35.7 ??C (96.3 ??F) 04/25/2017 9:14 AM CDT Respiratory Rate 16 04/25/2017 12:22 PM CDT Oxygen Saturation 100% 04/25/2017 12:22 PM CDT Inhaled Oxygen Concentration - - Weight 90.7 kg (200 lb) 04/25/2017 9:14 AM CDT Height 162.6 cm (5' 4) 04/25/2017 9:14 AM CDT Body Mass Index 34.33 04/25/2017 9:14 AM CDT documented in this encounter Discharge Instructions Discharge InstructionsYasemin Solis RN - 04/25/2017 12:23 PM CDT Fistulagram Discharge Instructions After you [...] cannot control If you have questions call: [facility] Radiology Dept @ [phone] The provider who performed your procedure was Dr. Fuentes. 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 Pt able to ambulate to wheelchair independently with no additional questions at this time. Family member states she has D/C paperwork. Yasemin Solis RN - 04/25/2017 2:49 PM CDT Patient is here for fistulagram, accompanied by Arianna, his mother, and Felix, his uncle/belly dump driver [phone], who has to leave for an appointment and return to pickling grader later--around 3 or 4PM. Patient returned to [facility], s/p successful fistulagram with plasty, per report. Left thigh fistula has good bruit. Patient taking po food/fluids. He ate two box lunches, plus a dinner. Patient states understanding of discharge instructions. Awaiting his ride home. 1620 Report to Aleta Kelly RN. documented in this encounter Miscellaneous Notes IR Note - Heidi Powers RN - 04/25/2017 11:42 AM CDT Interventional Radiology Intra-procedural Nursing Note Patient Name: Herminio Victor Today's Date: April 25, 2017 Start Time: 1125 End of procedure time: 1150 Procedure: left thigh fistulagram with intervention Report given to:LINDA Hazel Time pt departs: 1210 Dr Fuentes Fentanyl 25 mcg Versed 0.5 mg [address]= 25 mins Other Notes: Pt to IR 1 from care suites. Consent is verified and sedation assessment done. Pt is placed supine and left thigh fistula is prepped. Fire safety of 1. Time out done. Fistula accessed and 6 fr sheath placed via US. fistulagram done and plasty. Pt tolerated well. Sheath removed and pressure held by tech. Site is clean and dressing is dry. Heidi Powers documented in this encounter Plan of Treatment Not on filedocumented as of this encounter Procedures Procedure Name Priority Date/Time Associated Diagnosis Comme nts IR DIALYSIS Routine 04/25/2017 12:13 Stenosis of Results for this FISTULOGRAM LEFT PM CDT arteriovenous procedure are in dialysis fistula, the result s initial encounter (H) sectio n. INR STAT 04/25/2017 9:45 Stenosis of Results for this AM CDT arteriovenous procedure are in dialysis fistula, the result s initial encounter (H) sectio n. PARTIAL THROMBOPLASTIN STAT 04/25/2017 9:45 Stenosis of Re sults for this TIME AM CDT arteriovenous procedure are in dialysis fistula, the result s initial encounter (H) sectio n. documented in this encounter Results IR Dialysis Fistulogram Left (04/25/2017 12:13 PM CDT) Anatomical Region Laterality Modality Upper Extremity Radio Fluoroscopy Specimen (Source) Anatomical Location Collection Method / Collectio n Time Received Time / Laterality Volume Impressions 04/25/2017 4:15 PM CDT IMPRESSION: Fistulogram revealed a recurrent stenosis in the outflow superficial femoral vein immediately pas t the venous anastomosis. This was successfully angioplastied with an 8 and 10 mm balloon as above. Patient should have a follow-up ultrasou nd of the outflow vein in three months. MICHELE FUENTES MD Narrative 04/25/2017 4:15 PM CDT INTERVENTIONAL RADIOGRAPHY ??DIALYSIS FISTULOGRAM LEFT ??04/25/2017 12:13 PM HISTORY: ??Left thigh superficial femora l artery to superficial femoral vein Procol dialysis fistula. COMPARISON: Ultrasound dated 04/25/2017. Fistulogram dated 09/17/2016. DESCRIPTION OF PROCEDURE: After obtainin g informed consent, the patient was placed in a supine position on the fluoroscopy table. The left thigh was prepped and draped in the usual sterile manner. 1% lidocaine was injected for local anesthe burke. Under ultrasound guidance, access into an aneurysmal port ion of the left thigh fistula was obtained. Initial access was directe d towards the central veins. A fistulogram was performed. FINDINGS: Again identified was a signifi cant stenosis in the left superficial femoral vein immediately pas t the venous anastomosis. There was a mild stenosis in the left co mmon femoral artery at its junction with the left external iliac ar shy. The inflow artery and arterial anastomosis were patent without definite significant stenoses. Intervention: A 6 Divehi vascular sheath was placed. The stenosis in the left superficial femoral vein was di lated with an 8 mm balloon followed by a 10 mm balloon. Follow-up v enogram showed improvement in luminal diameter and improved flow. This was felt to be a satisfactory result to balloon angioplasty. The 6 [facility] vascular sheath was removed. Pressure was held at the punctu re site for 10 minutes with good hemostasis. The patient tolerated the procedure well . There were no immediate postprocedure complications. The patient 's vital signs were monitored by radiology nursing staff under my supe rvision and remained stable throughout the study. MEDICATIONS: Versed 0.5 mg, fentanyl 25 mcg. Sedation time: 25 minutes. Fluoroscopy time: 1.9 minutes. Total fluoroscopy dose: 178 mGy. Contrast: 60 mL Isovue. Local anesthetic: None. Procedure Note Michele Fuentes MD - 04/25/2017F ormatting of this note might be different from the original. INTERVENTIONAL RADIOGRAPHY DIALYSIS FIST ULOGRAM LEFT 04/25/2017 12:13 PM HISTORY: Left thigh superficial femoral artery to superficial femoral vein Procol dialysis fistula. COMPARISON: Ultrasound dated 04/25/2017. Fistulogram dated 09/17/2016. DESCRIPTION OF PROCEDURE: After obtainin g informed consent, the patient was placed in a supine position on the fluoroscopy table. The left thigh was prepped and draped in the usual sterile manner. 1% lidocaine was injected for local anesthe burke. Under ultrasound guidance, access into an aneurysmal port ion of the left thigh fistula was obtained. Initial access was directe d towards the central veins. A fistulogram was performed. FINDINGS: Again identified was a signifi cant stenosis in the left superficial femoral vein immediately pas t the venous anastomosis. There was a mild stenosis in the left co mmon femoral artery at its junction with the left external iliac ar shy. The inflow artery and arterial anastomosis were patent without definite significant stenoses. Intervention: A 6 Divehi vascular sheath was placed. The stenosis in the left superficial femoral vein was di lated with an 8 mm balloon followed by a 10 mm balloon. Follow-up v enogram showed improvement in luminal diameter and improved flow. This was felt to be a satisfactory result to balloon angioplasty. The 6 [facility] vascular sheath was removed. Pressure was held at the punctu re site for 10 minutes with good hemostasis. The patient tolerated the procedure well . There were no immediate postprocedure complications. The patient 's vital signs were monitored by radiology nursing staff under my supe rvision and remained stable throughout the study. MEDICATIONS: Versed 0.5 mg, fentanyl 25 mcg. Sedation time: 25 minutes. Fluoroscopy time: 1.9 minutes. Total fluoroscopy dose: 178 mGy. Contrast: 60 mL Isovue. Local anesthetic: None. IMPRESSION: Fistulogram revealed a recur rent stenosis in the outflow superficial femoral vein immediately pas t the venous anastomosis. This was successfully angioplastied with an 8 and 10 mm balloon as above. Patient should have a follow-up ultrasou nd of the outflow vein in three months. MICHELE FUENTES MD Jaxon Saravia MD IMG IR ORDERABLES (ABNORMAL) Partial thromboplastin time (04/25/2017 9:45 AM CDT) P athologist Signature PTT 55 (H) 22 - 37 sec [facility] Specimen Anatomical Collection Method Collection Time Receive d Time (Source) Location / / Volume Laterality Blood specimen 04/25/2017 9:45 AM 017 (specimen) CDT 10:14 AM CDT Michele Fuentes MD LAB - BLOOD ORDERABLES Performing Organization Address City/State/ZIP Code Phon e Number [facility] [address] [place] [address] [phone] [facility] [address] [address], [place] [phone] (ABNORMAL) INR (04/25/2017 9:45 AM CDT) P athologist Signature INR 3.57 (H) 0.86 - 1.14 [facility] Specimen Anatomical Collection Method Collection Time Receive d Time (Source) Location / / Volume Laterality Blood specimen 04/25/2017 9:45 AM 017 (specimen) CDT 10:14 AM CDT Michele Fuentes MD LAB - BLOOD ORDERABLES Performing Organization Address City/State/ZIP Code [facility] e Number [facility] [address] [place] [address] [phone] [place] [address] [place] [address], [place] [phone] documented in this encounter Visit Diagnoses Diagnosis Stenosis of arteriovenous dialysis fistu la, initial encounter (H) documented in this encounter Administered Medications Inactive Administered Medications - up to 3 most recent administrations Medication Order MAR Action Action Date Dose Rate Site fentaNYL (PF) (SUBLIMAZE) 100 MCG/2ML in jection Starting on Tue04/25/17 at 1123, For 1 d tio, Heidi Powers: cabinet override fentaNYL (PF) (SUBLIMAZE) injection 25-50 Given 04/25/2017 11:31 AM CDT 25 mcg mcg 25-50 mcg, Intravenous, EVERY 5 MIN PRN, severe pain (7-10), If inadequate response may repeat 25 mcg IV slowly every 5 min PRN severe pain, Administer over 2 Minutes, Starting on Tue04/25/17 at 1130, Doses can be exceeded under direct oversight of patient by physician., IR Intra-procedure heparin 5,000 units in 0.9% Given by Other 04/25/2017 11:57 AM 10,000 Units sodium chloride 1000 mL Clinician CDT TABLE SOLN, ONCE, On Tue04/25/17 at 1200, For 1 dose, IR Intra-procedure iopamidol (ISOVUE-300) IV solution 61% 5 0 mL Given 04/25/2017 12:01 PM CDT 65 mLs 50 mL, Intravenous, ONCE, On Tue04/25/17 at 1130, For 1 dose, IR Intra-procedure lidocaine (PF) (XYLOCAINE) 1 % Given by Other 04/25/2017 11:39 AM 10 mg injection 10-300 mg Clinician CDT 10-300 mg (1-30 mL), Subcutaneous, ONCE PRN, for local anesthetic.?When verbally ordered by prescriber during the procedure., Starting on Tue04/25/17 at 1130, For 1 dose, Dose to be divided into smaller volumes appropriate for the procedure., IR Intra-procedure midazolam (VERSED) 1 MG/ML injection Starting on Tue04/25/17 at 1123, For 1 d Gio kinsey Michelle: cabinet override midazolam (VERSED) injection 0.5-1 mg Given 04/25/2017 11:31 AM CDT 0.5 mg 0.5-1 mg, Intravenous, Administer over 1 Minutes, EVERY 4 MIN PRN, sedation, If inadequate response may repeat 0.5 mg IV slowly every 4 minutes PRN sedation until desired response., Starting on Tue04/25/17 at 1130, Doses can be exceeded under direct oversight of patient by physician., IR Intra-procedure documented in this encounter Active and Recently Administered Medications Times are shown in CDT. Scheduled Medication Order 04/23/2017 04/24/2017 04/25/2017 heparin 5,000 units in 0.9% sodium chloride 1000 mL (CANCELED) 1157 (Given by Other Clinician - Provider: Heidi Powers RN) 10,000 Units, TABLE SOLN, ONCE, 04/25 at 1200, For 1 dose, IR Intra-procedure iopamidol (ISOVUE-300) IV solution 61% 50 mL (COMPLETED) 1201 (Given - Provider: Edin Hidalgo) 50 mL, Intravenous, ONCE, Tue04/25/17 at 1130, For 1 dose, IR In tra-procedure PRN Medication Order 04/23/2017 04/24/2017 04/25/2017 fentaNYL (PF) (SUBLIMAZE) injection 25-50 mcg (CANCELED) 113 (Given - Provider: Heidi Powers, LINDA) 25-50 mcg, Intravenous, Administer over 2 Minutes, EVERY 5 MIN PRN, Starting Tue04/25/17 at 1130, severe pain, If inadequate response may repeat 25 mcg IV slowly every 5 min PRN severe pain, Doses can b e exceeded under direct oversight of patient by physician., IR Intra-procedure lidocaine (PF) (XYLOCAINE) 1 % injection 10-300 mg (COMPLETED) 113 (Given by Other Clinician - Provider: Heidi Powers RN) 10-300 mg (1-30 mL), Subcutaneous, ONCE PRN, for local anesthetic.?When verbally ordered by prescriber during the procedure., Starting Tue04/25/17 at 1130, For 1 dose, Dose to be divided into smaller volumes appropriate for the procedure., IR Intra-procedure midazolam (VERSED) injection 0.5-1 mg (CANCELED) 113 (Given - Provider: Heidi Powers RN) 0.5-1 mg, Intravenous, Administer over 1 Minutes, EVERY 4 MIN PRN, Starting Tue04/25/17 at 1130, sedation, If inadequate response may repeat 0.5 mg IV slowly every 4 minutes PRN sedation until desired r esponse., Doses can be exceeded under di rect oversight of patient by physician., IR Intra-procedure documented in this encounter Care Teams Recreational Specialist Relationship Specialty Start Date End Date Preet Huff PCP - General 06/24/11 documented as of this encounter
--- OUTSIDE RECORDS SUMMARY | 2022-09-01 20:14 | XMS_ITS | Encounter Summary ---
:1965 Author Organization [place] Address [address] [facility] [place] [address] Care Team Providers Name Role Phone Preet Huff Primary Care Provider Reason for Visit (Routine) - Closed Specialty Diagnoses / Procedures Referred By Contact Refer red To Contact Radiology / Diagnoses [facility] will call pt with results per Dr. Saravia *lr 08/25/16 Jaxon Saravia Ultrasound [facility] Radiology. Procedures US [place] [address] [place] [phone] Fax: Referral ID Status Reason Start Date Expiration Date Visits Requ ested Visits Authorized [id number] Closed 08/30/2016 08/30/2017 1 1 Encounter Details Date Type Department Care Team Description 09/06/2016 Hospital Encounter [facility] Jaxon Saravia RD (end stage [place] Specialty MD Preet renal disease) (H) [facility] [address] [address] [place] [id number] [place], [place] [phone] (Work) [phone] Social History Tobacco Use Types Packs/Day Years [...] MG CAPS every evening With a snack vitamin B complex with Take 1 tablet by 0 04/25/2017 vitamin C (VITAMIN B mouth every evening COMPLEX) TABS WARFARIN SODIUM PO Take 5 mg by mouth 0 12/19/2017 every evening documented as of this encounter Progress Notes Jaxon Saravia MD - 09/06/2016 11:59 PM TELEHEALTH COORDINATOR Quick Note: Duplex reveals patent ProCol graft. However, recurrent stenosis at venous anastomosis (to more cephalad superficial femoral vein that has been annuloplastied in past). Patient need repeat fistulogram with ROD FINISHER of venous anastomosis. OK at [facility]. Jaxon Saravia MD HEALTH COORDINATOR documented in this encounter Plan of Treatment Not on filedocumented as of this encounter Procedures Procedure Name Priority Date/Time Associated Diagnosis Comme nts US EXTREMITY Routine 09/06/2016 11:23 AM ESRD (end stage Resul ts for this ARTERIAL VENOUS TELEHEALTH COORDINATOR renal disease) (H) proced ure are in DIALYSIS ACCESS the results GRAFT section. documented in this encounter Results US Ext Arterial Venous Dialys Acs Graft (09/06/2016 11:23 AM TELEHEALTH COORDINATOR) Anatomical Region Laterality Modality Vascular, Abdomen/Pelvis Ultrasound Specimen (Source) Anatomical Location Collection Method / Collectio n Time Received Time / Laterality Volume Impressions 09/06/2016 12:58 PM TELEHEALTH COORDINATOR IMPRESSION: 1. 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 Would recommend intervention in the short-term . It is likely this interval stenosis is related to intimal hyperplas ia. 2. Mild velocity elevation in the inflow SFA artery. The arterial molina diffusely calcified. Velocity is 2 79/169 cm/second with diameter of 3.4 mm. TOM OLVERA MD Narrative 09/06/2016 12:58 PM TELEHEALTH COORDINATOR ULTRASOUND ??EXTREMITY ARTERIAL VENOUS DIALYSIS ACCESS GRAFT 09/06/2016 11:23 AM HISTORY: 51-year-old male with left abov e-knee popliteal to proximal femoral ProCol mesenteric AV fistula. Th is was created on March 05, 2016. COMPARISON: June 02, 2016. TECHNIQUE: Color Doppler and spectral wa veform analysis performed throughout the ProCol fistula in adjacen t sun'aq artery and vein. FINDINGS: Inflow superficial femoral [...] There is visible narrowing in the outflow sun'aq vein with velocity of 447/290 cm/second. The visible diameter is 2.3 m m over a 15 mm segment. Previously, this area measured 7.8 mm. Procedure Note Tom Olvera MD - 09/06/2016 ULTRASOUND EXTREMITY ARTERIAL VENOUS NGA LYSIS ACCESS GRAFT 09/06/2016 11:23 AM HISTORY: 51-year-old male with left abov e-knee popliteal to proximal femoral ProCol mesenteric AV fistula. Th is was created on March 05, 2016. COMPARISON: June 02, 2016. TECHNIQUE: Color Doppler and spectral wa veform analysis performed throughout the ProCol fistula in adjacen t sun'aq artery and vein. FINDINGS: Inflow superficial femoral [...] There is visible narrowing in the outflow sun'aq vein with velocity of 447/290 cm/second. The [...] 79/169 cm/second with diameter of 3.4 mm. TOM OLVERA MD Jaxon Sraavia MD IM US ORDERABLES documented in this encounter Visit Diagnoses Diagnosis ESRD (end stage renal disease) (H) End stage renal disease documented in this encounter Care Teams Sales Training Coordinator Relationship Specialty Start Date End Date Preet Huff PCP - General 06/24/11 documented as of this encounter
--- OUTSIDE RECORDS SUMMARY | 2022-09-01 20:14 | XMS_ITS | Encounter Summary ---
:1965 Author Organization [place] Address [address] [facility] [place] [address] Care Team Providers Name Role Phone HuffPreet Primary Care Provider Encounter Details Date Type Department Care Team Description 04/26/2017 Orders Only [facility] Jaxon Saravia ESRD (en d stage renal disease) (H) (Primary Dx); Vascular Clinic Mk Oviedo MD Other specified complication of vascular prosthetic devices, implants and grafts, sequela [address] [place] [phone] [place] FRASER [id number] Social History Tobacco Use Types Packs/Day Years Used Date Smoking Tobacco: Never Smokeless Tobacco: Never Alcohol Use Standard Drinks/Week Comments No 0 (1 standard drink = 0.6 oz pure alcoho l) Sex Assigned at Date Recorded Not on file documented as of this encounter Plan of Treatment Not on filedocumented as of this encounter Results US Ext Arterial Venous Dialys Acs Graft (07/25/2017 8:52 AM CDT) Anatomical Region Laterality Modality Vascular, Abdomen/Pelvis Ultrasound Specimen (Source) Anatomical Location Collection Method / Collectio n Time Received Time / Laterality Volume Impressions 07/25/2017 9:08 AM CDT IMPRESSION: Velocities in the graft are similar to prior. There is narrowing of the left superficial femora l artery and above-knee popliteal artery with elevated velocitie s. YOSEPH RAYMUNDO MD Narrative 07/25/2017 9:08 AM CDT ULTRASOUND EXTREMITY ARTERIAL VENOUS DIALYSIS ACCESS GRAFT July 25, 2017 8:52 AM HISTORY: Dialysis hearing diminished burt nds in outflow portion of left lower extremity fistula graft. Other spe cified complication of vascular prosthetic devices, implants an d grafts, sequela. End stage renal disease. COMPARISON: 04/25/2017. TECHNIQUE: Color Doppler and spectral wa veform analysis performed. FINDINGS: There is a left above-knee pop liteal artery to superficial femoral vein dialysis graft. The graft i s patent with a calculated outflow volume of 2936 mL/m. Inflow kelsey ry velocities are elevated at 342-480 mL/m with diameters measured at 3.2-3.4 mm. The outflow appears widely patent without evidence o f narrowing. Procedure Note Yoseph Raymundo MD - 07/25/2017Forma tting of this note might be different from the original. ULTRASOUND EXTREMITY ARTERIAL VENOUS NGA LYSIS ACCESS GRAFT July 25, 2017 8:52 AM HISTORY: Dialysis hearing diminished burt nds in outflow portion of left lower extremity fistula graft. Other spe cified complication of vascular prosthetic devices, implants an d grafts, sequela. End stage renal disease. COMPARISON: 04/25/2017. TECHNIQUE: Color Doppler and spectral wa veform analysis performed. FINDINGS: There is a left above-knee pop liteal artery to superficial femoral vein dialysis graft. The graft i s patent with a calculated outflow volume of 2936 mL/m. Inflow kelsey ry velocities are elevated at 342-480 mL/m with diameters measured at 3.2-3.4 mm. The outflow appears widely patent without evidence o f narrowing. IMPRESSION: Velocities in the graft are similar to prior. There is narrowing of the left superficial femora l artery and above-knee popliteal artery with elevated velocitie s. YOSEPH RAYMUNDO MD Jaxon Saravia MD IMG US ORDERABLES documented in this encounter Visit Diagnoses Diagnosis ESRD (end stage renal disease) (H) - [facility] End stage renal disease Other specified complication of vascular prosthetic devices, implants and grafts, sequela Other specified complication of vascular prosthetic devices, implants and grafts, sequela ESRD (end stage renal disease) (H) End stage renal disease documented in this encounter Care Teams Tamale Maker Relationship Specialty Start Date End Date Preet Huff PCP - General 06/24/11 documented as of this encounter
--- OUTSIDE RECORDS SUMMARY | 2022-09-01 20:14 | XMS_ITS | Encounter Summary ---
:1965 Author Organization [place] Address [address] [facility] [place] [address] Care Team Providers Name Role Phone Preet Huff Primary Care Provider Reason for Visit Reason Onset Date Comments Call to schedule test 08/02/2016 Encounter Details Date Type Department Care Team Description 08/02/2016 Telephone [facility] Jaxon Saravia Call to schedule test [facility] Mk Oviedo MD [address] [place] [phone] [place] [id number] (Wo rk) Social History Tobacco Use Types Packs/Day Years Used Date Smoking Tobacco: Never Smokeless Tobacco: Never Alcohol Use Standard Drinks/Week Comments No 0 (1 standard drink = 0.6 oz pure alcoho l) Sex Assigned at Date Recorded Not on file documented as of this encounter Miscellaneous Notes Telephone Encounter - Angie Mcclellan - 08/02/2016 11:07 AM CDT Will be sending recall letter to Herminio, I called [facility] and spoke to LINDA Mayen to make sure there weren't problems or I'd call Herminio's family to schedule. She said Whoever put that fistula in, I want to shake their hand, it's working beautifully!. Will send recall letter/[id number] documented in this encounter Plan of Treatment Not on filedocumented as of this encounter Visit Diagnoses Not on filedocumented in this encounter Care Teams Quality Audit Representative Relationship Specialty Start Date End Date Preet Huff PCP - General 06/24/11 documented as of this encounter
--- OUTSIDE RECORDS SUMMARY | 2022-09-01 20:14 | XMS_ITS | Encounter Summary ---
:1965 Author Organization [place] Address [address] [facility] [place] [address] Care Team Providers Name Role Phone HuffPreet cool Primary Care Provider Encounter Details Date Type Department Care Team Description 09/08/2016 Orders Only [facility] Carolyn Garcia e renal Vascular Clinic Mk Villegas RN failure on dialysis [address] VASCULAR HEALTH (H) (Primary Dx) [address] [place] [address] [phone] [place] [id number] Social History Tobacco Use Types Packs/Day Years Used Date Smoking Tobacco: Never Smokeless Tobacco: Never Alcohol Use Standard Drinks/Week Comments No 0 (1 standard drink = 0.6 oz pure alcoho l) Sex Assigned at Date Recorded Not on file documented as of this encounter Plan of Treatment Not on filedocumented as of this encounter Results IR Dialysis Fistulogram Left (09/17/2016 10:53 AM SENIOR WINDOWS ADMINISTRATOR) Anatomical Region Laterality Modality Upper Extremity Radio Fluoroscopy, R adio Fluoroscopy Specimen (Source) Anatomical Location Collection Method / Collectio n Time Received Time / Laterality Volume Impressions 09/17/2016 4:57 PM SENIOR WINDOWS ADMINISTRATOR IMPRESSION: Fistulogram with 8 mm balloon angioplasty at the venous outflow. Patient tolerated the procedure well and exam with good result. Patient may return to hemodialys is as previously scheduled. PATRICIA OLVERA MD Narrative 09/17/2016 4:57 PM SENIOR WINDOWS ADMINISTRATOR INTERVENTIONAL RADIOLOGY DIALYSIS FISTULOGRAM LEFT 09/17/2016 10:53 AM HISTORY: 51-year-old patient with a left thigh fistula. Routine ultrasound surveillance exam demonstrate s significant stenosis at the venous anastomosis. The exam was perform ed September 06, 2016. TECHNIQUE: Patient was brought to the in terventional radiology department and informed consent obtained . Patient was placed in a supine position. Skin overlying the enti re left thigh was prepped and draped in standard sterile fashion. 1% l idocaine was used for local anesthesia. The fistula was accessed in a perpendicular manner so that both inflow and outflow can be assessed with a single puncture. Over a series of maneuvers, 6 Slovak vascular s yari was placed. JB1 catheter was placed retrograde into the superfici al femoral artery where angiogram was performed. The catheter wa s then redirected into an antegrade direction within the fistula a nd fistulogram performed at the venous anastomosis. Balloon angiopla sty was performed with 7 mm and 8 mm Charles Mix balloons with good resul t. Remaining outflow veins are patent. After reviewing the images, the sheath was removed and hemostasis achieved with manual compress ion. Patient tolerated the procedure well. Sedation: 1.5 mg IV Versed, 75 mcg IV fe ntanyl. Sedation time: 25 minutes. Please note the above medications were a dministered by the interventional radiology staff under my direct supervision. Patient's vital signs were monitored and remained stable throughout the procedure. Fluoroscopic time: 1.7 minutes. Fluoroscopic dose: 179 mGy. Local anesthetic: 2 mL 1% lidocaine. Contrast: 50 mL of Isovue-300 administer ed intra-arterially and intravenously without complication. FINDINGS: A total of 9 venogram and kelsey riogram sequences obtained throughout the procedure. Slight irregul arity at the arterial anastomosis is noted, though no signific ant stenosis. Fistula is otherwise patent. Moderate stenosis at t he venous anastomosis and outflow vein, successfully treated with 8 mm balloon angioplasty with good result. Remaining outflow veins are patent. Procedure Note Patricia Olvera MD - 09/17/2016 INTERVENTIONAL RADIOLOGY DIALYSIS FISTUL OGRAM LEFT 09/17/2016 10:53 AM HISTORY: 51-year-old patient with a left thigh fistula. Routine ultrasound surveillance exam demonstrate s significant stenosis at the venous anastomosis. The exam was perform ed September 06, 2016. TECHNIQUE: Patient was brought to the in terventional radiology department and informed consent obtained . Patient was placed in a supine position. Skin overlying the enti re left thigh was prepped and draped in standard sterile fashion. 1% l idocaine was used for local anesthesia. The fistula was accessed in a perpendicular manner so that both inflow and outflow can be assessed with a single puncture. Over a series of maneuvers, 6 Slovak vascular s yari was placed. JB1 catheter was placed retrograde into the superfici al femoral artery where angiogram was performed. The catheter wa s then redirected into an antegrade direction within the fistula a nd fistulogram performed at the venous anastomosis. Balloon angiopla sty was performed with 7 mm and 8 mm Charles Mix balloons with good resul t. Remaining outflow veins are patent. After reviewing the images, the sheath was removed and hemostasis achieved with manual compress ion. Patient tolerated the procedure well. Sedation: 1.5 mg IV Versed, 75 mcg IV fe ntanyl. Sedation time: 25 minutes. Please note the above medications were a dministered by the interventional radiology staff under my direct supervision. Patient's vital signs were monitored and remained stable throughout the procedure. Fluoroscopic time: 1.7 minutes. Fluoroscopic dose: 179 mGy. Local anesthetic: 2 mL 1% lidocaine. Contrast: 50 mL of Isovue-300 administer ed intra-arterially and intravenously without complication. FINDINGS: A total of 9 venogram and kelsey riogram sequences obtained throughout the procedure. Slight irregul arity at the arterial anastomosis is noted, though no signific ant stenosis. Fistula is otherwise patent. Moderate stenosis at t he venous anastomosis and outflow vein, successfully treated with 8 mm balloon angioplasty with good result. Remaining outflow veins are patent. IMPRESSION: Fistulogram with 8 mm balloo n angioplasty at the venous outflow. Patient tolerated the procedure well and exam with good result. Patient may return to hemodialys is as previously scheduled. PATRICIA OLVERA MD Jaxon Saravia MD IMG IR ORDERABLES documented in this encounter Visit Diagnoses Diagnosis End stage renal failure on dialysis (H) - Primary End stage renal disease documented in this encounter Care Teams Supervisor Of Communications Relationship Specialty Start Date End Date Preet Huff PCP - General 06/24/11 documented as of this encounter
--- OUTSIDE RECORDS SUMMARY | 2022-09-01 20:14 | XMS_ITS | Encounter Summary ---
:1965 Author Organization [place] Address [address] [facility] [place] [address] Care Team Providers Name Role Phone Preet Huff Primary Care Provider Reason for Visit Reason Onset Date Comments Call to schedule test 07/13/2017 Encounter Details Date Type Department Care Team Description 07/13/2017 Telephone [facility] Jaxon Saravia Call to schedule test Vascular Clinic Mk Oviedo MD [address] [place] [phone] [place] [address] (Wo rk) Social History Tobacco Use Types Packs/Day Years Used Date Smoking Tobacco: Never Smokeless Tobacco: Never Alcohol Use Standard Drinks/Week Comments No 0 (1 standard drink = 0.6 oz pure alcoho l) Sex Assigned at Date Recorded Not on file documented as of this encounter Miscellaneous Notes Telephone Encounter - Angie Mcclellan - 07/13/2017 3:[address] Saravia says to set Herminio up for an ultrasound left lower extremity arteriovenous fistula, with possible fistulogram if needed afterward. Says to do both at [facility] as it's easier for the patient todo it there. Putting in orders and I'll call [place] [facility] and IR to set up, then call patievette gomes's aunt Thelma to schedule. LUCA 07/13/17 Telephone Encounter - Angie Mcclellan - 07/13/2017 3:18 PM CDT LINDA Farah from [facility] called, wonders if Dr Saravia wants an ultrasound of Herminio's fistula. Says dialysis is going fine, but has diminished sounds in outflow portion of graft, and she'd hatefor it to clot. Let me know she let his Aunt, Thelma, that we may be calling to schedule something. I left message for Dr Saravia to call me. LUCA 07/13/17 documented in this encounter Plan of Treatment Not on filedocumented as of this encounter Visit Diagnoses Not on filedocumented in this encounter Care Teams Bed Worker Relationship Specialty Start Date End Date Preet Huff PCP - General 06/24/11 documented as of this encounter
--- OUTSIDE RECORDS SUMMARY | 2022-09-01 20:14 | XMS_ITS | Encounter Summary ---
:1965 Author Organization [place] Address [address] [facility] [place] [address] Care Team Providers Name Role Phone Preet Huff Primary Care Provider Reason for Visit Reason Onset Date Comments Nurse Advice Line 06/02/2016 Encounter Details Date Type Department Care Team Description 06/02/2016 Telephone [facility] Vascular Janell Edgar RN Nurse Advice Line [address] [phone] Social History Tobacco Use Types Packs/Day Years Used Date Smoking Tobacco: Never Smokeless Tobacco: Never Alcohol Use Standard Drinks/Week Comments No 0 (1 standard drink = 0.6 oz pure alcoho l) Sex Assigned at Date Recorded Not on file documented as of this encounter Miscellaneous Notes Telephone Encounter - Janell Edgar RN - 06/03/2016 10:52 AM CDT I spoke to Tiarra MCKEON at [facility] today regarding pts noted sore on inside of left leg/upper thigh at surgical site, notes looks like a stitch is in the area. Sore is dry, no redness, no swelling. I noted if Chey Barba, CRIMINAL JUSTICE SOCIAL WORKER or other CRIMINAL JUSTICE SOCIAL WORKER/MD there to have them look at it and assess if it is a stitch andif it may be clipped/removed. Tiarra sent picture, I will discuss with Dr. Saravia. Discussed with Dr. Saravia who notes keep CVC in until sore is no longer an issue, picture difficult to assess if it is a stitch, agreed to have Chey Barba NP or MD at [facility] assess. I called Tiarra back who noted it was a stitch and she was able to pull the stitch, pt had some puslike yellowish green oozing, no further oozing or bleeding noted. Tiarra noted sites looks better. Will continue to assess. Noted to keep CVC in until sore has healed and no further issue with sore. Tiarra notes understanding. I notified Dr. Saravia of this. Janell Edgar RN, BSN. Telephone Encounter - Janell Edgar RN - 06/02/2016 3:39 PM CDT Pt has history of left lower extremity AVF on 03-05-16. Sofi RN from [facility] called, returned call to Sofi who notes pt open area/sore on inside of legwhich has been healing and then reopening consistently, has some drainage. Denies redness, odor or pus. Pt not currently at [facility], unable to provide picture or today's assessment. I discussed with Dr. Saravia who notes IR to read ultrasound, they can provide intervention if needed and can pull CVC tunneled cath if appropriate. Pt having ultrasound this a.m. In [place], I called [facility], spoke to IR LINDA Fischer and Community Health Nurse Dona regarding pt sore and looking to have an assessment of site, LINDA Daniel was called in to look at site, able to show via phone video cam with pts consent, area appeared scabbed over, non draining, no redness. María notes no draininage, redness and is scabbed over, will apply band aid to cover site from rubbing on clothing. auto electrical technician notes u/s results not requested as a STAT but will have IR read it today, I explained CVC tunnel cath removal by IR today if u/s is normal, however now pthas already left [facility]. Discussed with Angie outpatient scheduler. Discussed and updated Sofi at [facility], pt dialyzing tomorrow and RN to provide us an update on sore and dialysis run. Awaiting results of ultrasound and schedule CVC pull. Janell Edgar, RN, BSN. documented in this encounter Plan of Treatment Not on filedocumented as of this encounter Visit Diagnoses Not on filedocumented in this encounter Care Teams Exploration Geologist Relationship Specialty Start Date End Date Preet Huff PCP - General 06/24/11 documented as of this encounter
--- OUTSIDE RECORDS SUMMARY | 2022-09-01 20:14 | XMS_ITS | Encounter Summary ---
:1965 Author Organization [place] Address [facility], [id number] [facility] [place] [address] Care Team Providers Name Role Phone Preet Huff Primary Care Provider Encounter Details Date Type Department Care Team Description 09/21/2016 Orders Only [facility] Jaxon Saravia ESRD (en d stage renal disease) (H) (Primary Dx); Vascular Clinic Mk Oviedo MD Fistula [address] [place] [phone] [place] [id number] Social History Tobacco Use Types Packs/Day Years [...] ESRD (end stage renal disease) (H) - [facility] End stage renal disease Fistula Unspecified local infection of skin and subcutaneous tissue documented in this encounter Care Teams Molder Feeder Relationship Specialty Start Date End Date Preet Huff PCP - General 06/24/11 documented as of this encounter
--- OUTSIDE RECORDS SUMMARY | 2022-09-01 20:14 | XMS_ITS | Encounter Summary ---
:1965 Author Organization [place] Address [address] [facility] [place] [address] Care Team Providers Name Role Phone Preet Huff Primary Care Provider Reason for Visit (Routine) - Closed Specialty Diagnoses / Procedures Referred By Contact Refer red To Contact Radiology / Diagnoses History of left thigh procol dialysis graft on 03-05-16; 3-4 month follow up to 04-01-16 appointment with Jaxon Pulliam Ultrasound [facility] Radiology. Procedures US [place] [address] [place] [phone] Fax: Referral ID Status Reason Start Date Expiration Date Visits Requ ested Visits Authorized [id number] Closed 05/31/2016 05/31/2017 1 1 Encounter Details Date Type Department Care Team Description [facility]/02[facility] [place] [facility] Preet renal disease) (H) [facility] [address] [place] [address] [place], [place] [phone] (Work) [phone] Social History Tobacco Use Types Packs/Day Years [...] Associated Diagnosis Comme nts US EXTREMITY Routine 06/02/2016 11:18 AM ESRD (end stage Resul ts for this ARTERIAL VENOUS CDT renal disease) (H) proced ure are in DIALYSIS ACCESS the results GRAFT section. documented in this encounter Results US Ext Arterial Venous Dialys Acs Graft (06/02/2016 11:18 AM CDT) Anatomical Region Laterality Modality Vascular, Abdomen/Pelvis Ultrasound Specimen (Source) Anatomical Location Collection Method / Collectio n Time Received Time / Laterality Volume Narrative 06/02/2016 3:24 PM CDT US EXTREMITY ARTERIAL VENOUS DIALYSIS ACCESS GRAFT ??06/02/2016 11:18 AM HISTORY: ??Patient has a left above knee popliteal artery to proximal superficial femoral vein dialysis graft created by protocol mesenteric vein. COMPARISON: Ultrasound dated 11/06/2015. FINDINGS: Spectral waveform analysis was performed. The dialysis graft is patent. Ultrasound suggests a focal stenosis at the arterial anastomosis. Peak systolic velocity in this area equals 666 cm/s and estimated luminal diameter measures to be 4.3 mm. MICHELE FUENTES MD Procedure Note Michele Fuentes MD - 06/02/2016F ormatting of this note might be different from the original. US EXTREMITY ARTERIAL VENOUS DIALYSIS AC CESS GRAFT 06/02/2016 11:18 AM HISTORY: Patient has a left above knee p opliteal artery to proximal superficial femoral vein dialysis graft created by protocol mesenteric vein. COMPARISON: Ultrasound dated 11/06/2015. FINDINGS: Spectral waveform analysis was performed. The dialysis graft is patent. Ultrasound suggests a focal stenosis at the arterial anastomosis. Peak systolic velocity in this area equals 666 cm/s and estimated luminal diameter measures to be 4.3 mm. MICHELE FUENTES MD Jaxon Saravia MD IMG US ORDERABLES documented in this encounter Visit Diagnoses Diagnosis ESRD (end stage renal disease) (H) End stage renal disease documented in this encounter Care Teams Booking Agent Relationship Specialty Start Date End Date Preet Huff PCP - General 06/24/11 documented as of this encounter
--- OUTSIDE RECORDS SUMMARY | 2022-09-01 20:14 | XMS_ITS | Encounter Summary ---
:1965 Author Organization [place] Address [address] [place] [address] Care Team Providers Name Role Phone Preet Huff Primary Care Provider Encounter Details Date Type Department Care Team Description 01/06/2017 Hospital Encounter [facility] Jaxon Saravia Co mplication of [facility] Imaging MD Preet arteriovenous [address] dialysis fistula, So. [address] subsequent encounter [address] [place] [address] [place] [address] [phone] Social History Tobacco Use Types Packs/Day Years [...] Associated Diagnosis Comme nts US EXTREMITY Routine 01/06/2017 2:00 PM Complication of Result s for this ARTERIAL VENOUS CDT arteriovenous dialysis pr ocedure are in DIALYSIS ACCESS fistula, subsequent the r esults GRAFT encounter section. documented in this encounter Results US Ext Arterial Venous Dialys Acs Graft (01/06/2017 2:00 PM CDT) Anatomical Region Laterality Modality Vascular, Abdomen/Pelvis Ultrasound Specimen (Source) Anatomical Location Collection Method / Collectio n Time Received Time / Laterality Volume Impressions 01/06/2017 4:58 PM CDT IMPRESSION: Patent AV fistula in the left lower extremity arising from the distal [place] SFA and communicating with the proximal femoral vein. Venous anastomosis relative stenos is is again identified and relatively unchanged as far as velocity. However, this segment does not appear to be as stenotic as it was o n previous exam. Therefore, consider persistent surveillance for jerri luation. If patient has diminished function during dialysis, the n intervention may be warranted. TOM OLMSTEAD MD Narrative 01/06/2017 4:58 PM CDT ULTRASOUND EXTREMITY ARTERIOVENOUS DIALYSIS ACCESS GRAFT ??01/06/2017 2:00 PM HISTORY: 51-year-old patient with AV fis fredo in a left thigh with a Procol mesenteric AV fistula. COMPARISON: September 06, 2016. TECHNIQUE: Color Doppler and spectral wa veform analysis obtained throughout the [place] inflow SFA artery, dialysis graft, and outflow femoral vein. FINDINGS: Inflow superficial femoral art philip is patent. Velocity is minimally elevated in the [place] artery just proximal to the anastomosis measuring 241/112 cm/sec. To myles blood flow volume 29379 cc/min, previously 530 cc/min. There is dilatation of the graft in the arterial aspect of the graft with diamet ers ranging from 12.8 to 15.3 mm. At the venous end of the graft, ther e is diminished velocity, decreased to 44/22 cm/sec, though simila r to previous exam. Velocity elevation in the venous limb measuring u p to 260/163 cm/sec, previously 188/125 cm/sec. Diameter at t he venous anastomosis is 4 mm with elevated velocity of 461/298 cm/sec , previously 447/290 cm/sec. Procedure Note Tom Olmstead MD - 01/06/2017 ULTRASOUND EXTREMITY ARTERIOVENOUS DIALY SIS ACCESS GRAFT 01/06/2017 2:00 PM HISTORY: 51-year-old patient with AV fis fredo in a left thigh with a Procol mesenteric AV fistula. COMPARISON: September 06, 2016. TECHNIQUE: Color Doppler and spectral wa veform analysis obtained throughout the [place] inflow SFA artery, dialysis graft, and outflow femoral vein. FINDINGS: Inflow superficial femoral art philip is patent. Velocity is minimally elevated in the [place] artery just proximal to the anastomosis measuring 241/112 cm/sec. To myles blood flow volume 87847 cc/min, previously 530 cc/min. There is dilatation of the graft in the arterial aspect of the graft with diamet ers ranging from 12.8 to 15.3 mm. At the venous end of the graft, ther e is diminished velocity, decreased to 44/22 cm/sec, though simila r to previous exam. Velocity elevation in the venous limb measuring u p to 260/163 cm/sec, previously 188/125 cm/sec. Diameter at t he venous anastomosis is 4 mm with elevated velocity of 461/298 cm/sec , previously 447/290 cm/sec. IMPRESSION: Patent AV fistula in the lef t lower extremity arising from the distal [place] SFA and communicating with the proximal femoral vein. Venous anastomosis relative stenos is is again identified and relatively unchanged as far as velocity. However, this segment does not appear to be as stenotic as it was o n previous exam. Therefore, consider persistent surveillance for jerri luation. If patient has diminished function during dialysis, the n intervention may be warranted. TOM OLMSTEAD MD Jaxon Saravia MD IMG US ORDERABLES documented in this encounter Visit Diagnoses Diagnosis Complication of arteriovenous dialysis f istula, subsequent encounter documented in this encounter Care Teams Glove Tagger Relationship Specialty Start Date End Date Preet Huff PCP - General 06/24/11 documented as of this encounter
--- OUTSIDE RECORDS SUMMARY | 2022-09-01 20:14 | XMS_ITS | Encounter Summary ---
:1965 Author Organization [place] Address [address] [facility] [place] [address] Care Team Providers Name Role Phone Preet Huff Primary Care Provider Encounter Details Date Type Department Care Team Description 04/25/2017 Hospital Encounter [facility] Ome Jaxon enosis of [facility] MD Preet arteriovenous [address] dialysis fistula, So. [address] [place] [address] [place] [address] [phone] Social History Tobacco Use Types Packs/Day Years [...] Associated Diagnosis Comme nts US EXTREMITY Routine 04/25/2017 8:49 AM Stenosis of Results f or this ARTERIAL VENOUS CDT arteriovenous dialysis pr ocedure are in DIALYSIS ACCESS fistula, sequela the resu lts GRAFT section. documented in this encounter Results US Ext Arterial Venous Dialys Acs Graft (04/25/2017 8:49 AM CDT) Anatomical Region Laterality Modality Vascular, Abdomen/Pelvis Ultrasound Specimen (Source) Anatomical Location Collection Method / Collectio n Time Received Time / Laterality Volume Impressions 04/25/2017 9:09 AM CDT IMPRESSION: Patent dialysis graft in the left leg. There is elevated velocity in the inflow artery without ev idence of narrowing. Graft velocities are unchanged. No aneurysm or pseudoaneurysm demonstrated. PAN RAYMUNDO MD Narrative 04/25/2017 9:09 AM CDT ULTRASOUND ??EXTREMITY ARTERIAL VENOUS DIALYSIS ACCESS GRAFT ?? 04/25/2017 8:49 AM HISTORY: Bulge on left thigh arterioveno us fistula, increased venous pressures, possible stenosis per dialysi s RN. Stenosis of other vascular prosthetic devices, implants an d grafts, sequela. COMPARISON: 01/06/2017. TECHNIQUE: Color Doppler and spectral wa veform analysis performed. FINDINGS: There is a dialysis graft from the left above-knee popliteal. There are elevated velocities in the distal superficial femoral artery and above-knee popliteal artery without a visible stenosis. Velocities within the graft ar e similar to prior. Outflow velocities are similar. Artery to the fe moral vein that is patent with a calculated outflow volume of 2015 mL/m . Procedure Note Pan Raymundo MD - 04/25/2017Forma tting of this note might be different from the original. ULTRASOUND EXTREMITY ARTERIAL VENOUS NGA LYSIS ACCESS GRAFT 04/25/2017 8:49 AM HISTORY: Bulge on left thigh arterioveno us fistula, increased venous pressures, possible stenosis per dialysi s RN. Stenosis of other vascular prosthetic devices, implants an d grafts, sequela. COMPARISON: 01/06/2017. TECHNIQUE: Color Doppler and spectral wa veform analysis performed. FINDINGS: There is a dialysis graft from the left above-knee popliteal. There are elevated velocities in the distal superficial femoral artery and above-knee popliteal artery without a visible stenosis. Velocities within the graft ar e similar to prior. Outflow velocities are similar. Artery to the fe moral vein that is patent with a calculated outflow volume of 2015 mL/m . IMPRESSION: Patent dialysis graft in the left leg. There is elevated velocity in the inflow artery without ev idence of narrowing. Graft velocities are unchanged. No aneurysm or pseudoaneurysm demonstrated. PAN RAYMUNDO MD Jaxon Saravia MD IMG US ORDERABLES documented in this encounter Visit Diagnoses Diagnosis Stenosis of arteriovenous dialysis fistu la, sequela documented in this encounter Care Teams Journeyman Molder Relationship Specialty Start Date End Date Preet Huff PCP - General 06/24/11 documented as of this encounter
--- OUTSIDE RECORDS SUMMARY | 2022-09-01 20:14 | XMS_ITS | Encounter Summary ---
:1965 Author Organization [place] Address [address] [place] [address] Care Team Providers Name Role Phone Preet Huff Primary Care Provider Encounter Details Date Type Department Care Team Description 09/17/2016 Hospital Encounter [facility] Michele Fuentes End stage renal [place] Client Support Representative MD Jared failure on dialysis [address] [place] [facility] [place], [place] RADIOLOGIC CONS [phone] [address] [facility] [phone] [address] [place], [place] [address] Social History Tobacco Use Types Packs/Day Years Used Date Smoking Tobacco: Never Smokeless Tobacco: Never Alcohol Use Standard Drinks/Week Comments No 0 (1 standard drink = 0.6 oz pure alcoho l) Sex Assigned at Date Recorded Not on file documented as of this encounter Last Filed Vital Signs Vital Sign Reading Time Taken Comments Blood Pressure 159/63 09/17/2016 11:30 AM TRANSPORTATION PROJECT MANAGER Pulse 64 09/17/2016 11:15 AM TRANSPORTATION PROJECT MANAGER Temperature 36.4 ??C (97.6 ??F) 09/17/2016 8:52 AM TRANSPORTATION PROJECT MANAGER Respiratory Rate 16 09/17/2016 11:30 AM TRANSPORTATION PROJECT MANAGER Oxygen Saturation 100% 09/17/2016 11:30 AM TRANSPORTATION PROJECT MANAGER Inhaled Oxygen Concentration - - Weight - - Height - - Body Mass Index - - documented in this encounter Medications at Time [...] documented as of this encounter Progress Notes Megan Ochoa RN - 09/17/2016 9:55 AM CST [facility] Interventional Radiology Intra-procedural Nursing Note Patient Name: Herminio Victor Today's Date: September 17, 2016 Start Time: 09 End of procedure time: 1057 Procedure: Left leg fistulagram with revascularization Report given to: Transferred to IR Holding room for recovery Time pt departs: 1115 Other Notes: Patient into IR #11 at 0930. Prepped and draped in supine position with 2% Chlorhexidine. Slightly hypertensive. Monitor reads NSR rate 60's. Noted to be hypoglycemic prior to procedure start and D50 given. Fistulagram and intervention performed by MD Shameka, Patient received 1.5 mg Versed and 75 mcg Fentanyl for sedation during procedure. Left leg fistula sheath site oozing post-procedure but C/D/I upon leaving procedure room. Tolerated procedure well, transported back to IR holding room in stable condition for recovery post-procedure. Megan Ochoa RN, BSN, CCRN SPORTATION PROJECT MANAGER documented in this encounter Procedure Notes Patricia Olvera MD - 09/17/2016 12:18 PM CST RADIOLOGY PROCEDURE NOTE Patient name: Herminio Victor : 1965 Pre-procedure diagnosis: Left thigh fistulagram with stenosis Post-procedure diagnosis: Same Procedure Date/Time: September 17, 2016 12:27 PM Procedure: Left thigh fistulagram with PRODUCT TEST ENGINEER on venous ananstomosis, up to 8 mm. No complications. Mayreturn to HD, as previously scheduled. Estimated blood loss: < 5 ml Specimen(s) collected with description: None The patient tolerated the procedure well with no immediate complications. Significant findings: Please see above. See imaging dictation for procedural details. Provider name: Patricia Olvera Corporate Human Resources Manager(s):None SPORTATION PROJECT MANAGER documented in this encounter Plan of Treatment Not on filedocumented as of this encounter Procedures Procedure Name Priority Date/Time Associated Comments Diagnosis IR DIALYSIS Routine 09/17/2016 10:53 End stage renal Results for this FISTULOGRAM LEFT AM TRANSPORTATION PROJECT MANAGER failure on dialysis proc edure are in (H) the results section. GLUCOSE BY METER Routine 09/17/2016 9:31 AM End stage renal Re sults for this TRANSPORTATION PROJECT MANAGER failure on dialysis procedur e are in (H) the results section. GLUCOSE BY METER Routine 09/17/2016 9:06 AM End stage renal Re sults for this TRANSPORTATION PROJECT MANAGER failure on dialysis procedur e are in (H) the results section. documented in this encounter Results IR Dialysis Fistulogram Left (09/17/2016 10:53 AM TRANSPORTATION PROJECT MANAGER) Anatomical Region Laterality Modality Upper Extremity Radio Fluoroscopy, R adio Fluoroscopy Specimen (Source) Anatomical Location Collection Method / Collectio n Time Received Time / Laterality Volume Impressions 09/17/2016 4:57 PM TRANSPORTATION PROJECT MANAGER IMPRESSION: Fistulogram with 8 mm balloon angioplasty at the venous outflow. Patient tolerated the procedure well and exam with good result. Patient may return to hemodialys is as previously scheduled. PATRICIA OLVERA MD Narrative 09/17/2016 4:57 PM TRANSPORTATION PROJECT MANAGER INTERVENTIONAL RADIOLOGY DIALYSIS FISTULOGRAM LEFT 09/17/2016 10:53 [...] puncture. Over a series of maneuvers, 6 Hebrew vascular s yari was placed. JB1 catheter was placed retrograde into the superfici al femoral artery where angiogram was performed. The catheter wa s then redirected into an antegrade direction within the fistula a nd fistulogram performed at the venous anastomosis. Balloon angiopla sty was performed with 7 mm and 8 mm Sesser balloons with good resul t. Remaining outflow [...] puncture. Over a series of maneuvers, 6 Hebrew vascular s yari was placed. JB1 catheter was placed retrograde into the superfici al femoral artery where angiogram was performed. The catheter wa s then redirected into an antegrade direction within the fistula a nd fistulogram performed at the venous anastomosis. Balloon angiopla sty was performed with 7 mm and 8 mm Sesser balloons with good resul t. Remaining outflow [...] Jaxon Saravia MD IMG IR ORDERABLES (ABNORMAL) Glucose by meter (09/17/2016 9:31 AM TRANSPORTATION PROJECT MANAGER) P athologist Signature Glucose 105 (H) 70 - 99 POINT OF CARE mg/dL TEST, GLUCOSE Specimen Anatomical Collection Method Collection Time Receive d Time (Source) Location / / Volume Laterality 09/17/2016 9:31 AM 6 9:35 TRANSPORTATION PROJECT MANAGER AM TRANSPORTATION PROJECT MANAGER Michele DEAN - DAVID POCT Performing Organization Address City/State/ZIP Code Phon e Number FV POINT OF CARE TEST, GLUCOSE POINT OF CARE TEST, GLUCOSE (ABNORMAL) Glucose by meter (09/17/2016 9:06 AM TRANSPORTATION PROJECT MANAGER) P athologist Signature Glucose 64 (L) 70 - 99 POINT OF CARE mg/dL TEST, GLUCOSE Specimen Anatomical Collection Method Collection Time Receive d Time (Source) Location / / Volume Laterality 09/17/2016 9:06 AM 6 9:26 TRANSPORTATION PROJECT MANAGER AM TRANSPORTATION PROJECT MANAGER Michele DEAN - DAVID POCT Performing Organization Address City/State/ZIP Code Phon e Number FV POINT OF CARE TEST, GLUCOSE POINT OF CARE TEST, GLUCOSE documented in this encounter Visit Diagnoses Diagnosis End stage renal failure on dialysis (H) End stage renal disease documented in this encounter Administered Medications Inactive Administered Medications - up to 3 most recent administrations Medication Order MAR Action Action Date Dose Rate Site dextrose 50 % injection 25 mL Given 09/17/2016 9:19 AM TRANSPORTATION PROJECT MANAGER 25 mLs 25 mL, Intravenous, ONCE, On Tue09/17/16 at 0930, For 1 dose dextrose 50 % injection Starting on Tue09/17/16 at 0913, For 1 dose, MEGAN OCHOA: cabinet override fentaNYL Citrate (PF) (SUBLIMAZE) 100 MC G/2ML injection Starting on Tue09/17/16 at 0941, For 1 dose, MEGAN OCHOA: cabinet override fentaNYL Citrate (PF) (SUBLIMAZE) injection Given 06/2016 10:37 AM TRANSPORTATION PROJECT MANAGER 50 mcg 25-50 mcg 25-50 mcg, Intravenous, EVERY 5 MIN PRN, severe pain (7-10), If inadequate response may repeat 25 mcg IV slowly Q 5 min PRN severe pain, Administer over 2 Minutes, Starting on Tue09/17/16 at 0947, Doses can be exceeded under direct oversight of patient by physician., IR Intra-procedure Given 09/17/2016 9:49 AM TRANSPORTATION PROJECT MANAGER 25 mcg lidocaine (PF) (XYLOCAINE) 1 % Given by Other 09/17/2016 10:49 AM TRANSPORTATION PROJECT MANAGER 20 mg injection 10-300 mg 10-300 mg (1-30 mL), Subcutaneous, ONCE PRN, for local anesthetic.?When verbally ordered by prescriber during the procedure., Starting on Tue09/17/16 at 0947, For 1 dose, Dose to be divided into smaller volumes appropriate for the procedure., IR Intra-procedure midazolam (VERSED) 1 MG/ML injection Starting on Tue09/17/16 at 0942, For 1 dose, MEGAN OCHOA: margaret override midazolam (VERSED) injection 0.5-1 mg Given 09/17/2016 10:37 AM TRANSPORTATION PROJECT MANAGER 1 mg 0.5-1 mg, Intravenous, Administer over 1 Minutes, EVERY 4 MIN PRN, sedation, If inadequate response may repeat 0.5 mg IV slowly Q 4 minutes PRN sedation until desired response., Starting on Tue09/17/16 at 0947, Doses can be exceeded under direct oversight of patient by physician., IR Intra-procedure Given 09/17/2016 9:48 AM TRANSPORTATION PROJECT MANAGER 0.5 mg documented in this encounter Active and Recently Administered Medications Times are shown in TRANSPORTATION PROJECT MANAGER. Scheduled Medication Order 09/15/2016 09/16/2016 09/17/2016 dextrose 50 % injection 25 mL (COMPLETED) 0919 (Given - Provider: Javi Mcgee RN) 25 mL, Intravenous, ONCE, Tue09/17/16 at 0930, For 1 dose PRN Medication Order 09/15/2016 09/16/2016 09/17/2016 fentaNYL Citrate (PF) (SUBLIMAZE) injection 25-50 mcg (CANCELED) 0949 (Given - Provider: Megan Ochoa RN)1037 (Given - Provider: Megan Ochoa RN) 25-50 mcg, Intravenous, for 2 Minutes, E VERY 5 MIN PRN, Starting Tue09/17/16 at 0947, severe pain, If inadequate response may repeat 25 mcg IV slowly Q 5 min PRN severe pain, Doses can be exceeded under direct oversight of patient by physician., IR Intra-procedure lidocaine (PF) (XYLOCAINE) 1 % injection 10-300 mg (COMPLETED) 1049 (Given by Other - Provider: Megan Ochoa RN) 10-300 mg (1-30 mL), Subcutaneous, ONCE PRN, for local anesthetic.?When verbally ordered by prescriber during the procedure., Starting Tue09/17/16 at 0947, For 1 dose, Dose to be divided into smaller volumes appropriate for the procedure., IR Intra-procedure midazolam (VERSED) injection 0.5-1 mg (CANCELED) 0948 (Given - Provider: Megan Ochoa, RN)1037 (Given - Provider: Megan Ochoa RN) 0.5-1 mg, Intravenous, for 1 Minutes, EV KAROL 4 MIN PRN, Starting Tue09/17/16 at 0947, sedation, If inadequate response may repeat 0.5 mg IV slowly Q 4 minutes PRN sedation until desired response., Doses can be exceeded under direct oversight o f patient by physician., IR Intra-procedure documented in this encounter Care Teams Business Process Modeler Relationship Specialty Start Date End Date Preet Huff PCP - General 06/24/11 documented as of this encounter
--- OUTSIDE RECORDS SUMMARY | 2022-09-01 20:14 | XMS_ITS | Encounter Summary ---
:1965 Author Organization [place] Address [address] [facility] [place] [address] Care Team Providers Name Role Phone HuffPreet Primary Care Provider Encounter Details Date Type Department Care Team Description 07/01/2016 Orders Only [facility] Jxaon Saravia renal [facility] [place] MD disease (H) (Primary [address] ) [address] [place] [phone] [place] [id number] Social History Tobacco Use Types Packs/Day Years Used Date Smoking Tobacco: Never Smokeless Tobacco: Never Alcohol Use Standard Drinks/Week Comments No 0 (1 standard drink = 0.6 oz pure alcoho l) Sex Assigned at Date Recorded Not on file documented as of this encounter Plan of Treatment Not on filedocumented as of this encounter Results IR CVC Tunnel Removal Right (07/09/2016 2:54 PM CDT) Anatomical Region Laterality Modality Chest Radio Fluoroscopy Specimen (Source) Anatomical Location Collection Method / Collectio n Time Received Time / Laterality Volume Impressions 07/09/2016 5:05 PM CDT IMPRESSION: Uncomplicated removal of right common femoral vein tunneled hemodialysis catheter. PATRICIA OLVERA MD Narrative 07/09/2016 5:05 PM CDT IR CVC TUNNEL REMOVAL RIGHT 07/09/2016 2:54 PM HISTORY: 51-year-old male with right jose l in hemodialysis catheter, request made for removal. TECHNIQUE: Patient was brought to the In terventional Radiology Department and informed consent reiterat ed. Patient was placed in a supine position. Skin overlying the righ t groin at location of tunneled catheter was prepped and draped in standard sterile fashion. 1% lidocaine was used for local anesthes ia for a total of 10 mL. With sharp and blunt dissection, the subcutan eous cuff was freed from the surrounding scar tissue. The catheter wa s removed and hemostasis achieved with manual compression for gre ater than 10 minutes. Patient tolerated the procedure well. Procedure Note Patricia Olvera MD - 07/09/2016 IR CVC TUNNEL REMOVAL RIGHT 07/09/2016 2: 54 PM HISTORY: 51-year-old male with right jose l in hemodialysis catheter, request made for removal. TECHNIQUE: Patient was brought to the In terventional Radiology Department and informed consent reiterat ed. Patient was placed in a supine position. Skin overlying the righ t groin at location of tunneled catheter was prepped and draped in standard sterile fashion. 1% lidocaine was used for local anesthes ia for a total of 10 mL. With sharp and blunt dissection, the subcutan eous cuff was freed from the surrounding scar tissue. The catheter wa s removed and hemostasis achieved with manual compression for gre ater than 10 minutes. Patient tolerated the procedure well. IMPRESSION: Uncomplicated removal of rig ht common femoral vein tunneled hemodialysis catheter. PATRICIA OLVERA MD Jaxon Saravia MD IMG IR ORDERABLES documented in this encounter Visit Diagnoses Diagnosis End stage renal disease (H) - Primary End stage renal disease documented in this encounter Care Teams Nuclear Medical Tech Relationship Specialty Start Date End Date Preet Huff PCP - General 06/24/11 documented as of this encounter
--- OUTSIDE RECORDS SUMMARY | 2022-09-01 20:14 | XMS_ITS | Encounter Summary ---
:1965 Author Organization [place] Address Formerly [facility] [place] [address] Care Team Providers Name Role Phone Preet Huff Primary Care Provider Reason for Visit Reason Comments RECHECK (1:15 VHC, 2:30 WRO) History of left thigh procol dialysis graft on 03-05-16; 3 month follow up to 6 left thigh fistulogram Encounter Details Date Type Department Care Team Description 01/06/2017 Office Visit [facility] Jaxon Saravia ESRD (en d stage renal disease) on dialysis (H) (Primary Dx); Vascular Clinic Mk Oviedo MD Complications due to renal dialysis jose ce, implant, and graft, subsequent encounter [address] [place] [phone] [place] [id number] Social History Tobacco Use Types Packs/Day Years Used Date Smoking Tobacco: Never Smokeless Tobacco: Never Alcohol Use Standard Drinks/Week Comments No 0 (1 standard drink = 0.6 oz pure alcoho l) Sex Assigned at Date Recorded Not on file documented as of this encounter Last Filed Vital Signs Vital Sign Reading Time Taken Comments Blood Pressure 138/61 01/06/2017 2:31 PM CDT Pulse 62 01/06/2017 2:31 PM CDT Temperature - - Respiratory Rate - - Oxygen Saturation - - Inhaled Oxygen Concentration - - Weight 83.9 kg (185 lb) 01/06/2017 2:31 PM CDT Height - - Body Mass Index 31.76 03/05/2016 6:28 AM CDT documented in this encounter Progress Notes Jaxon Saravia MD - 01/06/2017 2:30 PM CDT Images from the original note were not included. Herminio Ornelasars And is on to return to see me in the office today. He is on chronic hemodialysisat the [facility]. He has no access available this upper extremities is failed access in his right groin. 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 We placed A left above-knee popliteal to proximal thigh superficial femoral vein ProCol graft on 03/05/2016. This did occlude any required interventional opening of the graft no difficulty on 09/17/2016.He's had no problems with the access since that time. PMH: Medications are reviewed and documented. This includes Coumadin due to his access problems. Exam: At his baseline. He is very comfortable. Blood pressure 138/61 left arm. Pulse 62 Chest= clear Well-healed left thigh and groin incisions. Easily palpable pulse and thrill within the graft. Milddiffuse aneurysmal changes. Overlying skin is normal. Duplex today reveals the graft is widely patent. This is somewhat aneurysmal in the usable segments measuring 13-15 mm. Outflow was widely patent at 6.8 mm into the superficial femoral vein. Excellent flow was noted with outflow volume of 2051 ml/min. Impression: Well-functioning left thigh ProCol dialysis access graft. No evidence of recurrent narrowing and excellent flow rates. Mild diffuse aneurysmal changes and should be watched by the dialysis unit. If this is progressive reevaluation would be necessary with duplex. No specific follow-up is scheduled. I discussed cystoscopy with the patient's aunt. Jaxon Saravia MD Please route or send letter to: [facility] dialysis unit documented in this encounter Nursing Notes Bozena Rose CMA - 01/06/2017 2:30 PM CDT Chief Complaint Patient presents with ??? RECHECK (1:15 C, 2:30 WRO) History of left thigh procol dialysis graft on 03-05-16; 3 month follow up to 09/20/16 left thigh fistulogram Initial BP 138/61 (BP Location: Left arm, Patient Position: Chair, Cuff Size: Adult Large) Pulse 62 Wt 185 lb (83.9 kg) BMI 31.76 kg/m2 Estimated body mass index is 31.76 kg/(m^2) as calculated from the following: Height as of 03/05/16: 5' 4 (1.626 m). Weight as of this encounter: 185 lb (83.9 kg). Medication Reconciliation: complete Face to Face nursing time 7 minutes Bozena Rose CMA documented in this encounter Plan of Treatment Not on filedocumented as of this encounter Visit Diagnoses Diagnosis ESRD (end stage renal disease) on dialys is (H) - Primary End stage renal disease Complications due to renal dialysis jose ce, implant, and graft, subsequent encounter documented in this encounter Care Teams Flavoring Machine Operator Relationship Specialty Start Date End Date Preet Huff PCP - General 06/24/11 documented as of this encounter
--- OUTSIDE RECORDS SUMMARY | 2022-09-01 20:14 | XMS_ITS | Encounter Summary ---
:1965 Author Organization [place] Address [address] [facility] [place] [address] Care Team Providers Name Role Phone HuffPreet cool Primary Care Provider Encounter Details Date Type Department Care Team Description 07/25/2017 [facility] Jaxon Saravia MD [address] [facility] [address] [place], [place] [id number] Other complication of arteriovenous dial ysis fistula, initial encounter (H); Encounter [employer] Michele Fuentes MD [facility] [address] [place], [place] [id number] End stage renal disease on dialysis (H) [address] [place] [address] Social History Tobacco Use Types Packs/Day Years Used Date Smoking Tobacco: Never Smokeless Tobacco: Never Alcohol Use Standard Drinks/Week Comments No 0 (1 standard drink = 0.6 oz pure alcoho l) Sex Assigned at Date Recorded Not on file documented as of this encounter Last Filed Vital Signs Vital Sign Reading Time Taken Comments Blood Pressure 169/83 07/25/2017 11:54 AM CDT Pulse 60 07/25/2017 11:54 AM CDT Temperature 36.3 ??C (97.4 ??F) 07/25/2017 9:15 AM CDT Respiratory Rate 16 07/25/2017 11:54 AM CDT Oxygen Saturation 100% 07/25/2017 11:54 AM CDT Inhaled Oxygen Concentration - - Weight - - Height - - Body Mass Index - - documented in this encounter Discharge Instructions Discharge Rima Enrique RN - 07/25/2017 10:56 AM CDT Going home after your fistulagram Date: July 25, 3017 Dr. Olmstead performed your fistulagram in Interventional Radiology at [facility]. After a Fistulagram - ?? If you [...] feeling), call your doctor or dialysis clinic Recovery After Procedural Sedation (Adult) You have been given medicine by vein to make you sleep during your procedure/surgery. This may have included both a pain medicine and sleeping medicine. Most of the effects have worn off. But you may still have some drowsiness for the next 6 to 8 hours. Home care Follow these guidelines when you get home: ?? For the next 8 hours, you should be watched by a responsible adult. This person should make sure your condition is not getting worse. ?? Don't drink any alcohol??for the next 24 hours. ?? Don't drive, operate dangerous machinery, or make important business or personal decisions??during the next 24 hours. Note: Your healthcare provider may tell you not to take any medicine by mouth for pain or sleep in the next 4 hours. These medicines may react with the medicines you were given in the hospital. This could cause a much stronger response than usual. Follow-up care Follow up with your healthcare provider if you are not alert and back to your usual level of activity within 12 hours. When to seek medical advice Call your healthcare provider right away if any of these occur: ?? Drowsiness gets worse ?? Weakness or dizziness gets worse ?? Repeated vomiting ?? You can't be awakened?? Date Last Reviewed: 07/27/2016 ?? [id number] [employer]. [address] [place] [address], [place] [address]. All rights reserved. This information is not intended as a substitute for professional medical care. Always follow your healthcare professional's instructions. documented in this encounter Medications at Time [...] documented as of this encounter Progress Notes Danica Zarate RN - 07/25/2017 11:49 AM CDT Pt here for Fistulagram. Consent signed with Dr. Olmstead. Pt tolerated procedure, vitals stable, ptalert and oriented, tolerated PO food. Aunt and Uncle at bedside, DC instructions reviewed and all questions answered. documented in this encounter Procedure Tom Navas MD - 07/25/2017 11:25 AM CDT RADIOLOGY PROCEDURE NOTE Patient name: Herminio Victor : 1965 Pre-procedure diagnosis: Fistulagram Post-procedure diagnosis: Same Procedure Date/Time: July 25, 2017 11:23 AM Procedure: Left thigh fistulagram with 8 mm and 10 mm CARTON LETTERING MACHINE OPERATOR at venous anastomosis. No complications. Patient may return to dialysis, as previously scheduled Estimated blood loss: 5 ml Specimen(s) collected with description: None The patient tolerated the procedure well with no immediate complications. Significant findings: Please see above. See imaging dictation for procedural details. Provider name: Tom Olmstead Paint Pourer(s):None documented in this encounter Miscellaneous Notes IR Note - Rima Mai RN - 07/25/2017 11:18 AM CDT Patient tolerate fistulagram with minimal sedation. Patient will be transferred to the pre/post procedure room. documented in this encounter Plan of Treatment Not on filedocumented as of this encounter Procedures Procedure Name Priority Date/Time Associated Diagnosis Comme nts IR DIALYSIS Routine 07/25/2017 11:20 Other complication of Re sults for this FISTULOGRAM LEFT AM CDT arteriovenous procedure are in dialysis fistula, the result s initial encounte r (H) section. End stage renal disease on dialysis (H) documented in this encounter Results IR Dialysis Fistulogram Left (07/25/2017 11:20 AM CDT) Anatomical Region Laterality Modality Upper Extremity Radio Fluoroscopy, R adio Fluoroscopy Specimen (Source) Anatomical Location Collection Method / Collectio n Time Received Time / Laterality Volume Impressions 07/25/2017 4:01 PM CDT IMPRESSION: Fistulogram with 8 and 10 mm balloon angioplasties and outflow stenosis in the left thigh. Nicole ent may resume to hemodialysis as previously scheduled. TOM OLMSTEAD MD Narrative 07/25/2017 4:01 PM CDT INTERVENTIONAL RADIOGRAPHY ??DIALYSIS FISTULOGRAM LEFT 07/25/2017 11:20 AM HISTORY: 52-year-old patient with fistul ogram due to recurrent outflow stenosis. TECHNIQUE: Patient was brought to the in terventional radiology department and informed consent obtained . Patient was placed in a supine position. Skin overlying the left thigh was prepped and draped in standard sterile fashion. 1% lidocain e was used for local anesthesia. Micropuncture kit was used t o access the fistula in a perpendicular approach. A 5 [place] Kumpe catheter was placed into the fistula and directed retrograde into the inflow superficial femoral artery where angiogram performed. The ca theter was then directed antegrade and 6 [place] sheath placed. Ve nogram was performed demonstrating moderate recurrent stenosi s in the venous anastomosis. This was treated with 8 and 10 mm balloo n angioplasty with good result at completion. The remaining femoral, co mmon femoral, and iliac venous systems are patent. The distal IVC is pa tent. Sheath was removed and hemostasis achieved with manual compress ion. Patient tolerated the procedure well. Sedation: 0.5 mg IV Versed, 25 mcg IV fe ntanyl. Sedation time: 35 minutes Please note the above medications were a dministered by the interventional radiology staff under my direct supervision. Patient's vital signs were monitored and remained stable throughout the procedure. Local anesthetic: 3 mL 1% lidocaine. Contrast: 41 mL of Isovue-300 administer ed intravenously and intra-arterially without complication. Fluoroscopic time: 2.5 minutes Total fluoroscopic dose: 136 mGy. A tota l of 7 venogram sequences were obtained throughout the procedure. The s equences demonstrate patent arterial anastomosis. There is minimal i rregularity, though not flow-limiting. 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 Good result noted at completion. No stenosis or thrombus remaining in mor e proximal femoral and iliac venous systems. Procedure Note Tom Olmstead MD - 07/25/2017 INTERVENTIONAL RADIOGRAPHY DIALYSIS FIST ULOGRAM LEFT 07/25/2017 11:20 AM HISTORY: 52-year-old patient with fistul ogram due to recurrent outflow stenosis. TECHNIQUE: Patient was brought to the in terventional radiology department and informed consent obtained . Patient was placed in a supine position. Skin overlying the left thigh was prepped and draped in standard sterile fashion. 1% lidocain e was used for local anesthesia. Micropuncture kit was used t o access the fistula in a perpendicular approach. A 5 [place] Kumpe catheter was placed into the fistula and directed retrograde into the inflow superficial femoral artery where angiogram performed. The ca theter was then directed antegrade and 6 [place] sheath placed. Ve nogram was performed demonstrating moderate recurrent stenosi s in the venous anastomosis. This was treated with 8 and 10 mm balloo n angioplasty with good result at completion. The remaining femoral, co mmon femoral, and iliac venous systems are patent. The distal IVC is pa tent. Sheath was removed and hemostasis achieved with manual compress ion. Patient tolerated the procedure well. Sedation: 0.5 mg IV Versed, 25 mcg IV fe ntanyl. Sedation time: 35 minutes Please note the above medications were a dministered by the interventional radiology staff under my direct supervision. Patient's vital signs were monitored and remained stable throughout the procedure. Local anesthetic: 3 mL 1% lidocaine. Contrast: 41 mL of Isovue-300 administer ed intravenously and intra-arterially without complication. Fluoroscopic time: 2.5 minutes Total fluoroscopic dose: 136 mGy. A tota l of 7 venogram sequences were obtained throughout the procedure. The s equences demonstrate patent arterial anastomosis. There is minimal i rregularity, though not flow-limiting. 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 Good result noted at completion. No stenosis or thrombus remaining in mor e proximal femoral and iliac venous systems. IMPRESSION: Fistulogram with 8 and 10 mm balloon angioplasties and outflow stenosis in the left thigh. Nicole ent may resume to hemodialysis as previously scheduled. TOM OLMSTEAD MD Jaxon Saravia MD IMG IR ORDERABLES documented in this encounter Visit Diagnoses Diagnosis Other complication of arteriovenous dial ysis fistula, initial encounter (H) End stage renal disease on dialysis (H) End stage renal disease documented in this encounter Administered Medications Inactive Administered Medications - up to 3 most recent administrations Medication Order MAR Action Action Date Dose Rate Site fentaNYL (PF) (SUBLIMAZE) Given 07/25/2017 10:49 AM CDT 25 mcg injection 25-50 mcg 25-50 mcg, Intravenous, EVERY 5 MIN PRN, severe pain (7-10), If inadequate response may repeat 25 mcg IV slowly every 5 min PRN severe pain, Administer over 2 Minutes, Starting on 07/25/17 at 1024, Doses can be exceeded under direct oversight of patient by physician., IR Intra-procedure flumazenil (ROMAZICON) injection 0.2 mg 0.2 mg, Intravenous, EVERY 1 MIN PRN, benzodiazepine r eversal, If inadequate response after 45 seconds, may repeat 0. 2 mg IV every 1 minute PRN oversedation., Starting on Tue07/25/17 at 1024, Give o billie 15 seconds. Maximum total dose of 1 mg. Continue monitoring until discharge criteria met for a minimum of 2 hours. Irritant., IR Intra-procedure heparin (porcine) 1000 UNIT/ML Given 07/25/2017 10:50 AM CDT 5,0 00 Units injection Starting on Tue07/25/17 at 0909, For 1 dose, Rima Mai : cabinet override lidocaine (LMX4) kit Topical, EVERY 1 HOUR PRN, pain, with VA D insertion or accessing implanted port., Starting on Tue07/25/17 at 0921, Do NOT give if patient has a history of allergy to any local anesthetic or any anabell product. Apply 30 minutes prior to VAD insertion or port access. MAX Dose: 2.5 g (?? of 5 g t ube), IR Pre-procedure lidocaine (PF) (XYLOCAINE) 1 % injection Given 07/25/2017 10:50 AM CDT 30 mg 10-300 mg 10-300 mg (1-30 mL), Subcutaneous, ONCE PRN, for local anesthetic.?When verbally ordered by prescriber during the procedure., Starting on Tue07/25/17 at 1024, For 1 dose, Dose to be divided into smaller volumes appropriate for the procedure., IR Intra-procedure lidocaine 1 % 1 mL 1 mL, Other, EVERY 1 HOUR PRN, mild pain with VAD insertion or accessing implanted port, Starting on Tue07/25/17 at 0921, Do NOT give if patient has a history of allergy to any local anesthetic or any anabell product. MAX dose 1 mL subcutaneous OR intradermal in divided doses., IR Pre-procedure midazolam (VERSED) injection 0.5-1 mg Given 07/25/2017 10:49 AM CDT 0.5 mg 0.5-1 mg, Intravenous, Administer over 1 Minutes, EVERY 4 MIN PRN, sedation, If inadequate response may repeat 0.5 mg IV slowly every 4 minutes PRN sedation until desired response., Starting on Tue07/25/17 at 1024, Doses can be exceeded under direct oversight of patient by physician., IR Intra-procedure naloxone (NARCAN) injection 0.1-0.4 mg 0.1-0.4 mg, Intravenous, EVERY 2 MIN PRN , opioid reversal, Starting on Tue07/25/17 at 1024, For respiratory rate LESS than or EQUAL to 8. Partial reversal dose: 0.1 mg titrated q 2 minutes for Analgesia Si de Effects Monitoring Sedation Level of 3 (frequently drowsy, arousable, drifts to sleep during conversation).Full reversal dose: 0.4 mg bolus for Analgesia Side Effects Monitori ng Sedation Level of 4 (somnolent, minimal or no response to stimulation)., I R Intra-procedure sodium chloride (PF) 0.9% PF flush 3 mL 3 mL, Intracatheter, EVERY 1 HOUR PRN, line flush, Sta rting on Tue07/25/17 at 0921, for peripheral IV flush post IV meds, IR Pre-pro cedure sodium chloride (PF) 0.9% PF flush 3 mL 3 mL, Intracatheter, EVERY 8 HOURS, First dose on Tue07/25/17 at 0930, And Q1H PRN, to lock peripheral IV dormant line., IR Pre-proce dure Take other usual AM meds with small amou nt of water CONTINUOUS PRN, Starting on Tue07/25/17 at 0921, Until Tue07/25/17 at 1412, IR Pre-procedure documented in this encounter Active and Recently Administered Medications Times are shown in CDT. Scheduled Medication Order 07/23/2017 07/24/2017 07/25/2017 sodium chloride (PF) 0.9% PF flush 3 mL 0930 (Canceled Entry - Provider: Orders Generic Provider - Comment: Automatically canceled at discontinue of medication order) 3 mL, Intracatheter, EVERY 8 HOURS, Firs t dose on Tue07/25/17 at 0930, And Q1H PRN, to lock peripheral IV dormant line., IR Pre-procedure PRN Medication Order 07/23/2017 07/24/2017 07/25/2017 fentaNYL (PF) (SUBLIMAZE) injection 25-50 mcg 1049 (Given - Provider: Rima Mai RN) 25-50 mcg, Intravenous, Administer over 2 Minutes, EVERY 5 MIN PRN, Starting Tue07/25/17 at 1024, severe pain, If inadequate response may repeat 25 mcg IV slowly every 5 min PRN severe pain, Doses can be exceeded under direct oversight of patient by eli loving., IR Intra-procedure flumazenil (ROMAZICON) injection 0.2 mg 0.2 mg, Intravenous, EVERY 1 MIN PRN, be nzodiazepine reversal, If inadequate response after 45 seconds, may repeat 0.2 mg IV every 1 minute PRN oversedation., Starting Tue07/25/17 at 1024, Give over 15 seconds. Maximum total dose of 1 mg. Co ntinue monitoring until discharge criteria met for a minimum of 2 hours. Irritant., IR Intra-procedure lidocaine (LMX4) kit Topical, EVERY 1 HOUR PRN, pain, with VA D insertion or accessing implanted port., Starting Tue07/25/17 at 0921, Do NOT give if patient has a history of allergy to any local anesthetic or any anabell pr oduct. Apply 30 minutes prior to VAD ins ertion or port access. MAX Dose: 2.5 g (?? of 5 g tube), IR Pre-procedure lidocaine (PF) (XYLOCAINE) 1 % injection 10-300 mg (COMPLETED) 1050 (Given - Provider: Rima Mai RN - Comment: used by ) 10-300 mg (1-30 mL), Subcutaneous, ONCE PRN, for local anesthetic.?When verbally ordered by prescriber during the procedure., Starting on Tue07/25/17 at 1024, For 1 dose, Dose to be divided into sma ller volumes appropriate for the procedure., IR Intra-procedure lidocaine 1 % 1 mL 1 mL, Other, EVERY 1 HOUR PRN, mild pain with VAD insertion or accessing implanted port, Starting Tue07/25/17 at 0921, Do NOT give if patient has a history of allergy to any local anesthetic or any ca ine product. MAX dose 1 mL subcutaneous OR intradermal in divided doses., IR Pre-procedure midazolam (VERSED) injection 0.5-1 mg 1049 (Given - Provider: Rima Mai, LINDA) 0.5-1 mg, Intravenous, Administer over 1 Minutes, EVERY 4 MIN PRN, Starting Tue07/25/17 at 1024, sedation, If inadequate response may repeat 0.5 mg IV slowly every 4 minutes PRN sedation until desired response., Doses can be exceeded under d irect oversight of patient by physician., IR Intra-procedure naloxone (NARCAN) injection 0.1-0.4 mg 0.1-0.4 mg, Intravenous, EVERY 2 MIN PRN , opioid reversal, Starting Tue07/25/17 at 1024, For respiratory rate LESS than or EQUAL to 8. Partial reversal dose: 0.1 mg titrated q 2 minutes for Analgesia S bishop Effects Monitoring Sedation Level of 3 (frequently drowsy, arousable, drifts to sleep during conversation).Full reversal dose: 0.4 mg bolus for Analgesia Side Effects Monitoring Sedation Level of 4 (somnolent, minimal or no response to stimulation)., IR Intra-pr ocedure sodium chloride (PF) 0.9% PF flush 3 mL 3 mL, Intracatheter, EVERY 1 HOUR PRN, l ine flush, Starting Tue07/25/17 at 0921, for peripheral IV flush post IV meds, IR Pre-procedure Take other usual AM meds with small amount of water CONTINUOUS PRN, Starting Tue07/25/17 at 0921, Until Tue07/25/17 at 1412, IR Pre-procedure No Frequency Medication Order 07/23/2017 07/24/2017 07/25/2017 heparin (porcine) 1000 UNIT/ML injection (COMPLETED) 1050 (Given - Provider: Rima Mai RN - Comment: Prep for procedure) Starting on Tue07/25/17 at 0909, For 1 dose, Rima Mai : cab inet override documented in this encounter Care Teams Conveyor Monitor Relationship Specialty Start Date End Date Preet Huff PCP - General 06/24/11 documented as of this encounter
--- OUTSIDE RECORDS SUMMARY | 2022-09-01 20:14 | XMS_ITS | Encounter Summary ---
:1965 Author Organization [place] Address [address] [facility] [place] [address] Care Team Providers Name Role Phone Preet Huff Primary Care Provider Encounter Details Date Type Department Care Team Description 07/26/2017 Orders Only [facility] Jaxon Saravia renal disease (H) (Primary Dx); Vascular Clinic Mk Oviedo MD Other specified complication of vascular prosthetic devices, implants and grafts, sequela [address] [place] [address] [place] [address] [phone] Social History Tobacco Use Types Packs/Day Years Used Date Smoking Tobacco: Never Smokeless Tobacco: Never Alcohol Use Standard Drinks/Week Comments No 0 (1 standard drink = 0.6 oz pure alcoho l) Sex Assigned at Date Recorded Not on file documented as of this encounter Plan of Treatment Not on filedocumented as of this encounter Visit Diagnoses Diagnosis End stage renal disease (H) - Primary End stage renal disease Other specified complication of vascular prosthetic devices, implants and grafts, sequela documented in this encounter Care Teams Revival Clerk Relationship Specialty Start Date End Date Preet Huff PCP - General 06/24/11 documented as of this encounter
--- OUTSIDE RECORDS SUMMARY | 2022-09-01 20:14 | XMS_ITS | Encounter Summary ---
:1965 Author Organization [place] Address [address] [facility] [place] [address] Care Team Providers Name Role Phone Preet Huff Primary Care Provider Reason for Visit Reason Onset Date Comments Call to schedule test 08/17/2017 Encounter Details Date Type Department Care Team Description 08/17/2017 Telephone [facility] Jaxon Saravia Call to schedule test Vascular Clinic Mk Oviedo MD [address] [place] [phone] [place] [phone] (Wo rk) Social History Tobacco Use Types Packs/Day Years Used Date Smoking Tobacco: Never Smokeless Tobacco: Never Alcohol Use Standard Drinks/Week Comments No 0 (1 standard drink = 0.6 oz pure alcoho l) Sex Assigned at Date Recorded Not on file documented as of this encounter Miscellaneous Notes Telephone Encounter - Wanda Pichardo MA - 08/17/2017 4:38 PM CST Patient has been scheduled for US and follow up on 08/25/[address] Saravia. MENT MILL TENDER Telephone Encounter - Janell Edgar RN - 08/17/2017 4:09 PM CST Discussed with Dr. Saravia. Pt to have u/s of AVF and OV with Dr. Saravia. Will route to medical office scheduler to coordinate at next available. Janell Edgar RN, BSN MENT MILL TENDER Telephone Encounter - Janell Edgar RN - 08/17/2017 3:46 PM CST Pt hx of Left above-knee popliteal to proximal thigh superficial femoral vein ProCol mesenteric veinbypass dialysis graft by Dr. Saravia. I called Sofi at [facility] who notes pt dialysis runs have been going well other than hearing the whistling sound, is concerned due to pt hx. Pts last fistulogram on 07-25-17 with [facility]. Will discuss with Dr. Saravia. Janell Edgar RN, BSN MENT MILL TENDER Telephone Encounter - Angie Mcclellan - 08/17/2017 2:50 PM CST LINDA Farah from [facility] called. She is hearing a whistling sound from his access between inflow and outflow of graft. Thinks he needs a fistulogram, please check with Dr Saravia to see what headvises. Routed to Dr Saravia's RN. LUCA 08/17/17 MENT MILL TENDER documented in this encounter Plan of Treatment Not on filedocumented as of this encounter Results US Ext Arterial Venous Dialys Acs Graft (08/31/2017 2:47 PM OINTMENT MILL TENDER) Anatomical Region Laterality Modality Vascular, Abdomen/Pelvis Ultrasound Specimen (Source) Anatomical Location Collection Method / Collectio n Time Received Time / Laterality Volume Impressions 08/31/2017 3:48 PM OINTMENT MILL TENDER IMPRESSION: Patent left thigh dialysis graft. YOSEPH RAYMUNDO MD Narrative 08/31/2017 3:48 PM OINTMENT MILL TENDER ULTRASOUND EXTREMITY ARTERIOVENOUS DIALYSIS ACCESS GRAFT ?? 08/31/2017 2:47 PM HISTORY: History of left above-knee popl iteal to proximal thigh superficial femoral vein ProCol mesenter ic vein bypass dialysis graft. Other specified complication of vascular prosthetic devices, implants and grafts, sequela. Chronic kidney dise ase. COMPARISON: 07/25/2017 TECHNIQUE: Color Doppler and spectral wa veform analysis performed. FINDINGS: There is a left thigh dialysis graft from the femoral artery to the femoral vein that is patent with a calculated outflow volume of 3595 mL/m. The graft is patent. No signi ficant stenosis demonstrated. Velocities are similar to prior. Procedure Note Yoseph Raymundo MD - 08/31/2017Forma tting of this note might be different from the original. ULTRASOUND EXTREMITY ARTERIOVENOUS DIALY SIS ACCESS GRAFT 08/31/2017 2:47 PM HISTORY: History of left above-knee popl iteal to proximal thigh superficial femoral vein ProCol mesenter ic vein bypass dialysis graft. Other specified complication of vascular prosthetic devices, implants and grafts, sequela. Chronic kidney dise ase. COMPARISON: 07/25/2017 TECHNIQUE: Color Doppler and spectral wa veform analysis performed. FINDINGS: There is a left thigh dialysis graft from the femoral artery to the femoral vein that is patent with a calculated outflow volume of 3595 mL/m. The graft is patent. No signi ficant stenosis demonstrated. Velocities are similar to prior. IMPRESSION: Patent left thigh dialysis g raft. YOSEPH RAYMUNDO MD Jaxon Saravia MD IMG US ORDERABLES documented in this encounter Visit Diagnoses Diagnosis Chronic kidney disease - Primary Chronic kidney disease, unspecified Other specified complication of vascular prosthetic devices, implants and grafts, sequela Other specified complication of vascular prosthetic devices, implants and grafts, sequela Chronic kidney disease Chronic kidney disease, unspecified documented in this encounter Care Teams Industrial Education Instructor Relationship Specialty Start Date End Date Preet Huff PCP - General 06/24/11 documented as of this encounter
--- OUTSIDE RECORDS SUMMARY | 2022-09-01 20:14 | XMS_ITS | Encounter Summary ---
:1965 Author Organization [place] Address [address] [place] [place] [address] Care Team Providers Name Role Phone Preet Huff Primary Care Provider Reason for Visit Reason Onset Date Comments Vascular Access Problem 05/13/2016 Encounter Details Date Type Department Care Team Description 05/13/2016 Telephone [facility] Jaxon Saravia Vascular Access Problem Vascular Clinic Mk Oviedo MD [address] [place] [address] [place] [phone] (Wo rk) Social History Tobacco Use Types Packs/Day Years Used Date Smoking Tobacco: Never Smokeless Tobacco: Never Alcohol Use Standard Drinks/Week Comments No 0 (1 standard drink = 0.6 oz pure alcoho l) Sex Assigned at Date Recorded Not on file documented as of this encounter Miscellaneous Notes Telephone Encounter - Alice Pabon RN - 05/14/2016 8:33 AM CDT Faxed fistulagram report to [facility]. Alice Pabon RN BSN Telephone Encounter - Alice Pabon RN - 05/13/2016 9:48 AM CDT Sofi from [facility] LM to ask when they can access the pt's AVF s/p fistulagram 05/12/16 and also for a copy of the fistulagram report. Per , they can access the fistula anytime, including today. Fistulagram is in process, will fax to them once it is dictated. Additionally, I LM a message for Sofi to call back so that I could inform her that has given approval to access the pt's AVF. Will await callback. Alice Pabon RN BSN documented in this encounter Plan of Treatment Not on filedocumented as of this encounter Visit Diagnoses Not on filedocumented in this encounter Care Teams Tawer Relationship Specialty Start Date End Date Preet Huff PCP - General 06/24/11 documented as of this encounter
--- OUTSIDE RECORDS SUMMARY | 2022-09-01 20:14 | XMS_ITS | Encounter Summary ---
:1965 Author Organization [place] Address [address] [place] [address]. [place] [address] Care Team Providers Name Role Phone Preet Huff Primary Care Provider Encounter Details Date Type Department Care Team Description 07/09/2016 Hospital Encounter [facility] Patricia Olvera nd stage renal [place] Personal Lines Appraiser MD Raymond disease (H) [address] [place], [place] RADIOLOGIC CONS [phone] [address] [facility] [phone] [address] [place] [address] Social History Tobacco Use Types Packs/Day Years Used Date Smoking Tobacco: Never Smokeless Tobacco: Never Alcohol Use Standard Drinks/Week Comments No 0 (1 standard drink = 0.6 oz pure alcoho l) Sex Assigned at Date Recorded Not on file documented as of this encounter Last Filed Vital Signs Vital Sign Reading Time Taken Comments Blood Pressure 198/99 07/09/2016 12:30 PM CDT Pulse 68 07/09/2016 11:35 AM CDT Temperature - - Respiratory Rate 20 07/09/2016 12:30 PM CDT Oxygen Saturation 99% 07/09/2016 11:35 AM CDT Inhaled Oxygen Concentration - - Weight - - Height - - Body Mass Index - - documented in this encounter Discharge Instructions Discharge Enma Zurita RN - 07/09/2016 11:04 AM CDT Going Home after the Removal of Your Tunneled Dialysis Catheter Patient Name: Herminio Victor Today's Date: July 09, 2016 The doctor who removed your port or catheter was: Dr. Olvera at [facility] in: Interventional Radiology Department When you get home: ?? No driving or drinking alcohol until tomorrow. You may still have side effects from the medicine you received today (you may feel drowsy, unsteady or forgetful). ?? You should have an adult with you for the first 6 hours at home (radiology patients). ?? You may go back to your regular diet today. ?? If you take aspirin or Plavix, you may begin taking it again tomorrow. You may restart all other medicines today. Use pain medicine as directed. ??? Avoid heavy lifting or the overuse of your shoulder for three days. Port site and bandage care ??? Keep the wound clean and dry for three days. Cover it with plastic before taking a shower. ??? Change the bandage if it gets wet or dirty. Use bacitracin (antibiotic cream) and clean gauze. ??? After three days, you may use Band-Aids until the wound has healed. ??? If you have oozing or bleeding from the port site or catheter (tube) site: o Put direct pressure on the wound for 5 to 10 minutes with a gauze pad. If you still have bleeding after 10 minutes, call your doctor. o If you are bleeding a lot and can???t control it with direct pressure, call 911. Call your doctor at Dialysis clinic or primary clinic if you have: ??? Swelling in your neck. ??? Signs of infection: o fever over 100?? F (37.8??C) under the tongue o the wound is red, tender or draining. documented in this encounter Medications at Time [...] encounter Progress Notes Rima Mai RN - 07/09/2016 12:58 PM CDT PATIENT DISCHARGED AT 1230 PM. [facility] SERVICE CALLED FOR TRANSPORTATION. PATIENT ALERT/ORIENTED, DISCHARGE INSTRUCTIONS DISCUSSED, WITH QUESTIONS ANSWERED. FAMILY MEMBER PRESENT TO TRANSPORT HOME WITH PATIENT. DRESSING TO RIGHT GROIN DRY AND INTACT NO SWELLING OR OOZING NOTED AT THE TIME OF DISCHARGE. documented in this encounter Procedure Notes Patricia Olvera MD - 07/09/2016 12:51 PM CDT RADIOLOGY PROCEDURE NOTE Patient name: Herminio Victor : 1965 Pre-procedure diagnosis: Catheter removal Post-procedure diagnosis: Same Procedure Date/Time: July 09, 2016 12:51 PM Procedure: Right groin tunneled HD catheter removal. NO complications. Estimated blood loss: None Specimen(s) collected with description: catheter The patient tolerated the procedure well with no immediate complications. Significant findings: Please see above. See imaging dictation for procedural details. Provider name: Patricia Olvera Alfalfa Dehydrator Operator(s):None documented in this encounter Plan of Treatment Not on filedocumented as of this encounter Procedures Procedure Name Priority Date/Time Associated Diagnosis Comme nts IR CVC TUNNEL Routine 07/09/2016 2:54 PM End stage renal Resul ts for this REMOVAL RIGHT CDT disease (H) procedure are in the results section. documented in this encounter Results IR CVC Tunnel Removal [...] Diagnoses Diagnosis End stage renal disease (H) End stage renal disease documented in this encounter Administered Medications Inactive Administered Medications - up to 3 most recent administrations Medication Order MAR Action Action Date Dose Rate Site lidocaine 1 % injection Given by Other 07/09/2016 10:45 AM 18 mLs Starting on Tue07/09/16 Clinician CDT at 1030, For 1 dose, ENMA ORTIZ: cabinet override documented in this encounter Active and Recently Administered Medications Times are shown in CDT. No Frequency Medication Order 07/07/2016 07/08/2016 07/09/2016 lidocaine 1 % injection (COMPLETED) 1045 (Given by Other Clinician - Provider: Enma Ortiz RN) Starting on Tue07/09/16 at 1030, For 1 d oseQUETA CHRISTINE: cabinet override documented in this encounter Care Teams Director Appointment Relationship Specialty Start Date End Date Preet Huff PCP - General 06/24/11 documented as of this encounter
--- OUTSIDE RECORDS SUMMARY | 2022-09-01 20:14 | XMS_ITS | Encounter Summary ---
:1965 Author Organization [place] Address [address] [facility] [place] [address] Care Team Providers Name Role Phone Preet Huff Primary Care Provider Reason for Visit (Routine) - Closed Specialty Diagnoses / Procedures Referred By Contact Refer red To Contact Radiology / Radiology. Diagnoses Left Lower Extremity AVF Ultrasound. History of left above knee popliteal to proximal thigh superficial femoral vein procol graft (LEFT THIGH AVF); 3 mo f/u to 04-26-17 imaging/fistulogram. Per Dr Saravia, Rh Ultra sound patient will have fistulogr am @ 10:00 if needed after this procedure, *jam *ok'd by mike [address] Procedures US [place] [address] Phone: Fax: Referral ID Status Reason Start Date Expiration Date Visits Requ ested Visits Authorized [id number] Closed 07/22/2017 07/22/2018 1 1 Encounter Details Date Type Department Care Team Description 07/25/2017 Hospital Encounter [facility] Jaxon Saravia Ot her specified complication of vascular prosthetic devices, implants and grafts, sequela ; [facility] MD Preet ESRD (end stage renal disease) (H) [address] [place], [place] [address] [phone] ANTOINETTE FRASER [id number] Social History Tobacco Use Types Packs/Day Years [...] encounter Progress Notes Jaxon Saravia MD - 07/25/2017 9:10 AM CDT Stenosis noted at ProCol anastomosis to SFV (Moderate) that was successfully treated. No stenosis otherwise of ProCol or outflow veins in leg or pelvis. Follow clinically with the Dialysis unit. Duplex in 4-6 months to follow this treated site. Wm Rani HARPER documented in this encounter Plan of Treatment Not on filedocumented as of this encounter Procedures Procedure Name Priority Date/Time Associated Diagnosis Comme nts US EXTREMITY Routine 07/25/2017 8:52 AM Other specified Result s for this ARTERIAL VENOUS CDT complication of procedure are in DIALYSIS ACCESS vascular prosthetic the r esults GRAFT devices, implants and sectio n. grafts, sequela ESRD (end stage renal disease) (H) documented in this encounter Results US [...] above-knee popliteal artery with elevated velocitie s. PAN RAYMUNDO MD Narrative 07/25/2017 9:08 AM CDT [...] without evidence o f narrowing. Procedure Note Pan Raymundo MD - 07/25/2017Forma tting of this [...] above-knee popliteal artery with elevated velocitie s. PAN RAYMUNDO MD Jaxon Saravia MD IMG US ORDERABLES documented in this encounter Visit Diagnoses Diagnosis Other specified complication of vascular prosthetic devices, implants and grafts, sequela ESRD (end stage renal disease) (H) End stage renal disease documented in this encounter Care Teams Cork Floor Installer Relationship Specialty Start Date End Date Preet Huff PCP - General 06/24/11 documented as of this encounter
--- OUTSIDE RECORDS SUMMARY | 2022-09-01 20:14 | XMS_ITS | Encounter Summary ---
:1965 Author Organization [place] Address [facility] [place] [address] Care Team Providers Name Role Phone Preet Huff Primary Care Provider Reason for Visit (Routine) - Closed Specialty Diagnoses / Procedures Referred By Contact Refer red To Contact Radiology / Radiology. Diagnoses Epic order, Whistling sounds from AVF graft; History of Left above-knee popliteal to proximal thigh superficial femoral vein ProCol mesenteric vein bypass dialysis graft; call Dr Saravia with results *rajiv Rh Ultrasound Procedures US EXT ART MEGHA DIAL ACC GRFT [address] [place] [address] Phone: Fax: Referral ID Status Reason Start Date Expiration Date Visits Requ ested Visits Authorized [id number] Closed 08/31/2017 08/31/2018 1 1 Encounter Details Date Type Department Care Team Description 08/31/2017 Hospital Encounter [facility] Jaxon Saravia Ot her specified complication of vascular prosthetic devices, implants and grafts, sequela ; [facility] MD Preet Chronic kidney disease [address] [place], [place] [address] [phone] ANTOINETTE FRASER [id number] Social History Tobacco Use Types Packs/Day Years [...] as of this encounter Progress Notes Jaxon Saraiva MD - 08/31/2017 11:59 PM CST Herminio Victor Undergoes dialysis via left mid superficial femoral artery to proximal one quarter superficial femoral vein ProCol access. He has developed stenosis of the outflow track and required venoplasty in the past. There was some concerns about recurrent stenosis developing. Because of this we performed the ultrasound on 08/31/2017 which revealed a widely patent graft With no recurrent outflow stenosis. Excellent flow rates are noted and good diameter of the graft. With the issues he's had in the past we would repeat the fistula ultrasound in approximately six months. Jaxon Saravia MD NG FRAME OPERATOR documented in this encounter Plan of Treatment Not on filedocumented as of this encounter Procedures Procedure Name Priority Date/Time Associated Diagnosis Comme nts US EXTREMITY Routine 08/31/2017 2:47 PM Other specified Result s for this ARTERIAL VENOUS DRYING FRAME OPERATOR complication of procedure are in DIALYSIS ACCESS vascular prosthetic the r esults GRAFT devices, implants and sectio n. grafts, sequela Chronic kidney disease documented in this encounter Results US Ext Arterial Venous Dialys Acs Graft (08/31/2017 2:47 PM DRYING FRAME OPERATOR) Anatomical Region Laterality Modality Vascular, Abdomen/Pelvis Ultrasound Specimen (Source) Anatomical Location Collection Method / Collectio n Time Received Time / Laterality Volume Impressions 08/31/2017 3:48 PM DRYING FRAME OPERATOR IMPRESSION: Patent left thigh dialysis graft. PAN RAYMUNDO MD Narrative 08/31/2017 3:48 PM DRYING FRAME OPERATOR ULTRASOUND EXTREMITY ARTERIOVENOUS DIALYSIS ACCESS GRAFT ?? [...] Velocities are similar to prior. Procedure Note Pan Raymundo MD - 08/31/2017Forma tting of this [...] IMPRESSION: Patent left thigh dialysis g raft. PAN RAYMUNDO MD Jaxon Saravia MD IMG US ORDERABLES documented in this encounter Visit Diagnoses Diagnosis Other specified complication of vascular prosthetic devices, implants and grafts, sequela Chronic kidney disease Chronic kidney disease, unspecified documented in this encounter Care Teams Business Department Chair Relationship Specialty Start Date End Date Preet Huff PCP - General 06/24/11 documented as of this encounter
--- OUTSIDE RECORDS SUMMARY | 2022-09-01 20:14 | XMS_ITS | Encounter Summary ---
:1965 Author Organization [place] Address [address] [facility] [address] Care Team Providers Name Role Phone Preet Huff Primary Care Provider Encounter Details Date Type Department Care Team Description 09/05/2017 Orders Only [facility] Jaxon Saravia Fistula (Primary Dx); Vascular Clinic Mk Oviedo MD ESRD (end stage renal disease) (H); [address] Ot her specified complication of vascular prosthetic devices, implants and grafts, sequela [address] [place] [phone] ANTOINETTE FRASER [id number] Social History Tobacco Use Types Packs/Day Years Used Date Smoking Tobacco: Never Smokeless Tobacco: Never Alcohol Use Standard Drinks/Week Comments No 0 (1 standard drink = 0.6 oz pure alcoho l) Sex Assigned at Date Recorded Not on file documented as of this encounter Plan of Treatment Not on filedocumented as of this encounter Visit Diagnoses Diagnosis Fistula - Primary Unspecified local infection of skin and subcutaneous tissue ESRD (end stage renal disease) (H) End stage renal disease Other specified complication of vascular prosthetic devices, implants and grafts, sequela documented in this encounter Care Teams Crew Car Driver Relationship Specialty Start Date End Date Preet Huff PCP - General 06/24/11 documented as of this encounter
--- OUTSIDE RECORDS SUMMARY | 2022-09-01 20:14 | XMS_ITS | Encounter Summary ---
:1965 Author Organization [place] Address [address] [facility] [place] [address] Care Team Providers Name Role Phone Preet Huff Primary Care Provider Reason for Visit Reason Onset Date Comments Call to schedule test 04/11/2017 Encounter Details Date Type Department Care Team Description 04/11/2017 Telephone [facility] Jaxon Saravia Call to schedule test Vascular Clinic Mk Oviedo MD [address] [place] [address] [place] [phone] (Wo rk) Social History Tobacco Use Types Packs/Day Years Used Date Smoking Tobacco: Never Smokeless Tobacco: Never Alcohol Use Standard Drinks/Week Comments No 0 (1 standard drink = 0.6 oz pure alcoho l) Sex Assigned at Date Recorded Not on file documented as of this encounter Miscellaneous Notes Telephone Encounter - Janell Edgar RN - 04/20/2017 10:29 AM CDT Pt has been scheduled for AVF u/s and IR dialysis fistulogram Left on 04-25-17. Janell Edgar RN, BSN. Telephone Encounter - Angie Mcclellan - 04/14/2017 12:47 PM CDT I spoke with Sofi, pig machine supervisor after speaking with Dr Saravia. He recommends ultrasound of fistula,then fistulogram if indicated. Says he can do both at [facility] if they decide. His aunt, Thelma, is usually our scheduling contact, but her number is not in service. I have tried twice on 04/14/17 at 10 and 12:30 to reach mom Arianna to schedule. There is no voicemailbox. I spoke again with Sofi, who will send a note home with Herminio on Tuesday after dialysis to have his mom call us to schedule this. She states they are still able to do dialysis, but something is wrong. There is a bump on Herminio's leg by the fistula. I will continue to try and contact Arianna daily. LUCA 04/14/17 Telephone Encounter - Janell Edgar RN - 04/11/2017 1:43 PM CDT I called Layla back, she notes no issues with pts left thigh Procol dialysis graft noted in pt chart,last note by MD on 04-07-17 states no problems. I called pt, unable to leave vm as mailbox not setup. Janell Edgar RN, BSN. Telephone Encounter - Janell Edgar RN - 04/11/2017 11:47 AM CDT Pt hx of left thigh Procol dialysis graft. I called Layla, nurse at [facility], inquired about venous pressures/pseudoaneurysms/stenosis and any other issues with pts left thigh Procol graft. Layla notes she wasn't aware of any issues, notes pt is scheduled for dialysis again tomorrow 04-12-17,Layla will look into pts chart and call me back. Janell Edgar RN, BSN. Telephone Encounter - Angie Mcclellan - 04/11/2017 9:09 AM CDT Shan left message 04/09/17 that Herminio is having dialysis issues - increased venous pressures, pseudoaneurysms, and stenosis. She wants to know if we want a fistulogram first or what Dr Saravia suggests. Says to please call Layla on Tuesday as she will be out of office. . Routed to Dr Saravia's RN to see what he wants to do. I called Layla to let her know we'll call her soon. LUCA [id number] documented in this encounter Plan of Treatment Not on filedocumented as of this encounter Visit Diagnoses Not on filedocumented in this encounter Care Teams High School Sports Coach Relationship Specialty Start Date End Date Preet Huff PCP - General 06/24/11 documented as of this encounter
--- OUTSIDE RECORDS SUMMARY | 2022-09-01 20:14 | XMS_ITS | Encounter Summary ---
:1965 Author Organization [facility] Address [address] [place] [address] Care Team Providers Name Role Phone Preet Huff Primary Care Provider Reason for Visit Reason Onset Date Comments Post-Op - Vascular 04/26/2017 Encounter Details Date Type Department Care Team Description 04/26/2017 Telephone [facility] Jaxon Saravia Post-Op - Vascular [facility] [place] MD [address] [place] [id number] [address] [place] [id number] (Wo rk) Social History Tobacco Use Types Packs/Day Years Used Date Smoking Tobacco: Never Smokeless Tobacco: Never Alcohol Use Standard Drinks/Week Comments No 0 (1 standard drink = 0.6 oz pure alcoho l) Sex Assigned at Date Recorded Not on file documented as of this encounter Miscellaneous Notes Telephone Encounter - Jaxon Saravia MD - 04/26/2017 8:39 AM CDT VASCULAR: Herminio Victor Is on chronic hemodialysis via left leg access. He is failed accesses in the upper extremities and right groin. He had an infection in the left groin. He presently has a ProCol graft anastomosis to the above-knee popliteal artery and to the more proximal thigh superficial femoral vein. The dialysis unit at [facility] as been using this graft which is easily access but noting higher venous pressures. In September 2016 was noted to be a stenosis going into the proximal one third anastomosis to the superficial femoral vein that was angioplastied. We suspected a similar problem-though scheduled for a fistulogram which was performed yesterday By Dr. Richmond of interventional radiology. Initial ultrasound revealed excellent flow rates within the graft.. Graft itself was widely patent. However, the outflow superficial femoral vein was narrowed at 2.4 mm consistent with our suspicion. The fistulogram revealed a widely patent arterial anastomosis and ProCol graft. There was a moderatestenosis at the anastomosis going into the common femoral vein responded well to angioplasty. This should correct the venous hypertension problem. However, is likely due to recur. If he has ongoing problems we would consider a repeat fistulogram. The other option is surgical revision. We could proximally lyse the venous outflow anastomosis or place a patch angioplasty ( this was placed in the proximal one third of the thigh due to the groin infection at the time of placement and possibly to have ability to move further up the superficial femoral vein Which is otherwise free of disease with no other outflow problems). Would consider repeat duplex in 3-4 months to make sure that the venous stenosis is not recurring. Jaxon Saravia MD Cc: [facility] dialysis unit documented in this encounter Plan of Treatment Not on filedocumented as of this encounter Visit Diagnoses Not on filedocumented in this encounter Care Teams Composition Board Press Operator Relationship Specialty Start Date End Date Preet Huff PCP - General 06/24/11 documented as of this encounter
--- OUTSIDE RECORDS SUMMARY | 2022-09-01 20:15 | XMS_ITS | Encounter Summary ---
:1965 Author Organization [facility]ie Address [address] [facility] [place] [address] Care Team Providers Name Role Phone Preet Huff Primary Care Provider Reason for Visit Auth/Cert Specialty Diagnoses / Procedures Referred By Contact Refer red To Contact Surgery Diagnoses END STAGE RENAL DISEASE ON DIALYSIS Sh Periop Services Procedures REVISION FISTULA ARTERIOVENOUS LOWER EXTREMITY [address] [place] [id number] Phone: Referral ID Status Reason Start Date Expiration Date Visits Requ ested Visits Authorized [id number] 1 1 Encounter Details Date Type Department Care Team Description 03/05/2016 - Hospital Encounter [facility] Rober Saraiva 03/06/2016 Ariane Oviedo MD Care [address] [place] [id number] [place] [id number] Social History Tobacco Use Types Packs/Day Years Used Date Smoking Tobacco: Never Smokeless Tobacco: Never Alcohol Use Standard Drinks/Week Comments No 0 (1 standard drink = 0.6 oz pure alcoho l) Sex Assigned at Date Recorded Not on file documented as of this encounter Last Filed Vital Signs Vital Sign Reading Time Taken Comments Blood Pressure 120/72 03/06/2016 4:20 PM CDT Pulse 72 03/05/2016 8:15 PM CDT Temperature 36.8 ??C (98.2 ??F) 03/06/2016 4:20 PM CDT Respiratory Rate 16 03/06/2016 4:20 PM CDT Oxygen Saturation 98% 03/06/2016 8:15 AM CDT Inhaled Oxygen Concentration - - Weight 78.4 kg (172 lb 13.5 03/06/2016 6:29 AM Standing wt oz) CDT Height 162.6 cm (5' 4) 03/05/2016 6:28 AM CDT Body Mass Index 29.67 03/05/2016 6:28 AM CDT documented in this encounter Discharge Summaries Rober Saravia MD - 03/06/2016 3:[address] [facility] Discharge Summary Vascular Surgery Date of Admission: 03/05/2016 Date of Discharge: 03/06/2016 Discharging Provider: Rober Saravia MD Date of Service (when I saw the patient): 03/06/2016 Discharge Diagnoses Active Problems: Postoperative observation History of Present Illness Julio Cesar Sandhu is a 50-year-old patient who has hypertensive renal on chronic hemodialysis in [place] the dialysis unit.?? He is presently dialyzing via right groin tunneled catheter.?? He has no upper arm access options.?? 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 The grafts were excised and wounds have healed.?? He presented on 03/05 for thigh dialysis access graft avoiding the groin area where it was very scarred in.?? By arterial and venous duplex he has an adequate artery and vein in the thigh for the access. Hospital Course Julio Cesar Sandhu was admitted on 03/05/2016. The following problems were addressed during his hospitalization: Active Problems: Postoperative observation His post-op course was uncomplicated, he had good thrill in graft and palpable DP pulses while denying any pain. [facility] dialyzed at [facility] before his discharge home where he lives with mother and Aunt. Aashish granados Significant Results and Procedures Left groin femoral vein to above knee popliteal access graft Pending Results These results will be followed up by none Unresulted Labs Ordered in the Past 30 Days of this Admission No orders found for last 60 day(s). Code Status Full Code Primary Care Physician PREET HUFF Physical Exam Temp: 97.8 ??F (36.6 ??C) Temp src: Oral BP: 119/58 mmHg Pulse: 72 Heart Rate: 75 Resp: 16 SpO2: 98 % O2 Device: None (Room air) Filed Vitals: 03/05/16 0628 03/06/16 06 Weight: 84.823 kg (187 lb) 78.4 kg (172 lb 13.5 oz) Vital Signs with Ranges Temp: [97.8 ??F (36.6 ??C)-99.1 ??F (37.3 ??C)] 97.8 ??F (36.6 ??C) Pulse: [65-72] 72 Heart Rate: [68-79] 75 Resp: [14-18] 16 BP: (97-189)/(48-81) 119/58 mmHg FiO2 (%): [21 %] 21 % SpO2: [96 %-98 %] 98 % I/O last 3 completed shifts: In: 1080 [P.O.:1080] Out: 3000 [Other:3000] See daily note Time Spent on This Encounter IAashish, personally saw the patient today and spent less than 30 minutes discharging thispatient. Discharge Disposition Discharged to home Condition at discharge: Good Consultations This Hospital Stay NEPHROLOGY IP CONSULT Discharge Orders Shower No shower for 24 hours post procedure. May shower on post-op day 2 Dressing Keep dressing clean and dry. Dressing / incision care as instructed by RN and or MD. Reason for your hospital stay Post op observation Follow-up and recommended labs and tests Follow up with Dr. Saravia in 2 weeks for wound check and discuss when can use access Activity Your activity upon discharge: activity as tolerated Discharge Instructions DISCHARGE INSTRUCTIONS Before your discharge from the hospital, your nurse will review the following instructions for your home care. Please read this and ask your nurse or doctor any questions before your discharge. WOUND CARE You may remove your dressing Tuesday. You should shower without the dressing on and replace in after bathing if the wound is still draining or if it is more comfortable to have the wound dressed. You may use guaze and tape or bandaids depending on the size of the wound and your preference. ACTIVITY You may climb stairs. You may exercise if you are comfortable. You may drive without restrictions when you are not using prescription pain medication and are comfortable in the car. You may return to work / school when you are comfortable without prescription pain medication. BATHING You may shower. Do not soak the wound or swim until the incision has been dry for 7 days. You may have steri-strips (looks like tape) on your incision. They will fall off by themselves. DIET Return to the diet you were on before surgery. CALL YOUR PHYSICIAN IF YOU HAVE Chills or fever above 101?? F. Significant or malodorous drainage from the incision(s) Significant bleeding Pain not relieved by your pain medication or rest. Increasing pain after the first 48 hours FOLLOW-UP You should call to schedule a follow-up visit in about 2 weeks ([phone]). Full Code Diet Follow this diet upon discharge: Orders Placed This Encounter Room Service Dialysis Diet Discharge Medications Current Discharge Medication List CONTINUE these medications which have NOT CHANGED Details AMLODIPINE BESYLATE PO Take 10 mg by mouth See Admin Instructions On Non dialysis days which is MWFSun METOPROLOL TARTRATE PO Take 200 mg by mouth See Admin Instructions Take on MWFSun, on Non-dialysis days !! calcium acetate (PHOSLO) 667 MG CAPS Take 667 mg by mouth every evening With a snack WARFARIN SODIUM PO Take 5 mg by mouth every evening vitamin B complex with vitamin C (VITAMIN B COMPLEX) TABS Take 1 tablet by mouth every evening !! Calcium Acetate, Phos Binder, (CALCIUM ACETATE PO) Take 1,334 mg by mouth 3 times daily (with meals) Takes with meals (2 x 667mg tablet) LISINOPRIL PO Take 40 mg by mouth daily (Takes 2 x 20mg tablet = 40mg ) Cholecalciferol (VITAMIN D3 PO) Take 2,000 Units by mouth daily simvastatin (ZOCOR) 40 MG tablet Take 40 mg by mouth every evening bisacodyl (DULCOLAX) 5 MG EC tablet Take 10 mg by mouth See Admin Instructions Take on Once Daily onM, W, F, [place] (Non-dialysis days only) !! - Potential duplicate medications found. Please discuss with provider. Allergies Allergies Allergen Reactions ??? Aspirin [Dihydroxyaluminum Aminoacetate] GI Disturbance GI bleeding Data Most Recent 3 CBC's: Recent Labs Lab Test 03/06/16 0723 03/05/16 0640 01/08/16 1124 12/22/15 0754 WBC 7.1 -- 2.9* 5.5 HGB 10.8* 10.9* 8.0* 7.8* MCV 83 -- 84 82 PLT 110* -- 201 154 Most Recent 3 BMP's: Recent Labs Lab Test 03/06/16 0723 03/05/16 0640 01/08/16 1221 NA 134 137 133 POTASSIUM 4.0 3.3* 3.5 CHLORIDE 98 99 94 CO2 24 25 31 BUN 51* 35* 25 CR 11.00* 8.67* 7.29* ANIONGAP 12 13 8 JON 8.3* 8.7 8.2* GLC 106* 81 79 Most Recent 2 LFT's: Recent Labs Lab Test 12/16/15 1501 AST 17 ALT 16 ALKPHOS 139 BILITOTAL 0.6 Most Recent INR's and Anticoagulation Dosing History: Anticoagulation Dose History Recent Dosing and Labs Latest Ref Rng 12/17/2015 12/18/2015 12/19/2015 12/20/2015 12/21/2015 12/22/2015 03/05/2016 Warfarin 3 mg - - 3 mg - - - - - Warfarin 5 mg - - - - - 5 mg - 5 mg INR 0.86 - 1.14 3.56(H) 2.76(H) 2.41(H) 2.31(H) 2.02(H) 1.90(H) 1.81(H) Most Recent 3 Troponin's:No lab results found. Most Recent Cholesterol Panel:No lab results found. Most Recent 6 Bacteria Isolates From Any [...] and A1c Labs: Recent Labs Lab Test 12/18/15 0800 A1C Below Assay Range Canceled, Test credited REPORTED TO RN ON DIALYSIS AT 1056 Results for orders placed or performed during the hospital encounter of 12/30/15 US Lower Extremity Arterial Duplex Left Narrative US LOWER EXTREMITY ARTERIAL DUPLEX LEFT 12/30/2015 2:46 PM HISTORY: 50-year-old male with chronic renal insufficiency. Patient requires creation of a left superficial femoral artery the superficial femoral vein dialysis fistula. COMPARISON: None. FINDINGS: Spectral waveform analysis was performed. The left superficial femoral artery appears patent without significant stenosis. Multiphasic waveforms are noted in the artery HAYDEN MCKEON MD STAFF: Agree with above. Needs about 4 weeks for new graft to mature. Back on chronic Coumadin. Rober Saravia MD documented in this encounter Medications at Time [...] documented as of this encounter Progress Notes Tahmina Vick RN - 03/06/2016 2:04 PM CDT Pt given written and verbal discharge instructions, instructions were also reviewed with pt's aunt via phone, Medications were reviewed and ride is arranged, pt ready for discharge AKT Angie Gotti RN - 03/06/2016 11:00 AM CDT POTASSIUM Date Value Ref Range Status 03/06/2016 4.0 3.4 - 5.3 mmol/L Final ] HGB 10.8 03/06/2016 Weight: 78.4 kg (172 lb 13.5 oz) (Standing wt) POST WT 75.4kg DIALYSIS PROCEDURE NOTE Patient dialyzed for 3.45 hrs on a 3 K bath with a net fluid removal of 3L. A BFR of 350/400ml/min was obtained via Rt femoral catheter. was consulted of pt status during treatment. Total heparin received during treatment:: 0units. Heparin instilled in both ports post run. Meds given:NONE Complications:Arterial collapse blood lines reversed. Procedure and ESRD teaching done and questions answered. See flowsheet in EPIC for further details and post assessment. Machine water alarm in place and functioning. HEPATITIS B SURFACE ANTIGEN unknown HEPATITIS B SURFACE ANTIBODY Immune DATE 07/08/15 CHLORINE AND CHLORAMINES CHECK on WATER SYSTEM EVERY 4 hours. PT returned via Wheelchair Catheter Access: Aseptic prep done for both on/off. Report received from:Tahmina Altamirano R.N. Report given to:Tahmina Altamirano R.N. Outpatient Dialysis at [facility] Aashish Witt MD - 03/06/2016 7:26 AM CDT Vascular Surgery Progress Note S: Doing well no complaints, denies pain. O: Vitals: BP Min: 119/61 Max: 165/72 Temp Av.8 ??F (36.6 ??C) Min: 97.2 ??F (36.2 ??C) Max: 98.2 ??F (36.8 ??C) Pulse Av.3 Min: 65 Max: 72 I/O last 3 completed shifts: In: 1295 [P.O.:720; I.V.:575] Out: 10 [Blood:10] Physical Exam: Left leg with dry bandages small shadowing on upper incision Palpable DP pulse, palpable pulse in graft Assessment/Plan: POD # 1 from left femoral vein to above knee popliteal loop graft placement, doing well will discharge home with mother after dialysis. Has not required more than tylenol for pain. Aashish Witt Surgery Resident, PGY4 Pager [phone] Chi Brunson MD - 03/05/2016 12:47 PM CDT Notes reviewed. He had HD yday. Plan HD tmrw. 1. KCl 20 x 1. Mell Robles - 03/05/2016 6:21 AM CDT Admission medication history interview status for the 03/05/2016 admission is complete. See [facility] admission navigator for prior to admission medications Medication history source reliability:Poor Medication history interview source(s)Tack Driller Medication history resources (including written lists, pill bottles, clinic record):List from home/phone call Primary pharmacy.[facility] Additional medication history information not noted on MAINTENANCE TECH med list :None Time spent in this activity: 30 minutes Prior to Admission medications Medication Sig Last Dose Taking? Auth Provider AMLODIPINE BESYLATE PO Take 20 mg by mouth 2 times daily On Non-dialysis Days: Mon, Wed, Fri, Sun (Takes 2 x 10mg tablet = 20mg tablet) Patient taking differently than prescribed; Prescribed as 10 mg once daily on non-dialysis days (M,W,F,Sun) 03/05/2016 at 0500 Yes Reported, Patient calcium acetate (PHOSLO) 667 MG CAPS Take 667 mg by mouth every evening With a snack 03/04/2016 at 2200 Yes Unknown, Entered By History WARFARIN SODIUM PO Take 5 mg by mouth every evening 03/04/2016 at 1800 Yes Unknown, Entered By History vitamin B complex with vitamin C (VITAMIN B COMPLEX) TABS Take 1 tablet by mouth every evening 03/04/2016 at am Yes Reported, Patient Calcium Acetate, Phos Binder, (CALCIUM ACETATE PO) Take 1,334 mg by mouth 3 times daily (with meals)Takes with meals (2 x 667mg tablet) 03/04/2016 at 1800 Yes Reported, Patient LISINOPRIL PO Take 40 mg by mouth daily (Takes 2 x 20mg tablet = 40mg ) 03/05/2016 at 0500 Yes Reported, Patient Cholecalciferol (VITAMIN D3 PO) Take 2,000 Units by mouth daily 03/04/2016 at am Yes Unknown, EnteredBy History Metoprolol Tartrate (LOPRESSOR PO) Take 200 mg by mouth 2 times daily In the AM and at Noon. Takes on M, W, F, [place] (Non-dialysis days only) (Takes 2 x 100mg tablet = 200mg) 03/05/2016 at 0500 Yes Unknown, Entered By History simvastatin (ZOCOR) 40 MG tablet Take 40 mg by mouth every evening 03/04/2016 at pm Yes Reported, Patient bisacodyl (DULCOLAX) 5 MG EC tablet Take 10 mg by mouth See Admin Instructions Take on Once Daily onM, W, F, [place] (Non-dialysis days only) 03/03/2016 Unknown, Entered By History documented in this encounter Nursing Notes Monserrat Torre, LINDA - 03/05/2016 11:26 AM CDT 1122hr - Pt remains awake, moving all extremities spontaneously/to command w/o difficulty. Neuro checks WNL. VS and Surgical sites remain stable. Ok for pt to tranfer to floor per [facility] Jones. Monserrat Torre, LINDA - 03/05/2016 11:01 AM CDT 1055hR - pt now fully awake and verbalized inability to move extremities, pt verbal appropriate. MDAWebb paged. 1100hr - MDA Jones present at bedside. documented in this encounter Miscellaneous Notes Plan of Care - Tahmina Vick RN - 03/06/2016 3:02 PM CDT Talked with aunt again, uncle not able to pick pt up, asked about other transport, social work professor said it would be private pay at 55 dollars base pay plus 4.25 per mile to [place], This was passed onto Aunsalvador Renee, Arrangements were made and Uncle will be here to pick pt up at [facility] at 5:00 Plan of Care - Tahmina Vick RN - 03/06/2016 2:02 PM CDT Problem: Goal Outcome Summary Goal: Goal Outcome Summary Outcome: Improving Pt will be discharge today, This nurse did call Aunt and discuss discharge with her, Also called [facility] set up transportation, Awaiting call back from [facility] Plan of Care - Daniela Holland RN - 03/06/2016 3:50 AM CDT Problem: Goal Outcome Summary Goal: Goal Outcome Summary Outcome: Improving Pt orientation: A&O x4 Pain level/management: Denies pain Tele: No Drips: None Oxygen level/device: CPAP on at night. Applied by respiratory Fall risk: Yes Restraints: None Activity level: up SBA Tests/procedures for next shift: Plan for hemodialysis this morning DC date: possibly today? 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 Vitals stable. Flat affect. Excellent appetite. Incisions CDI. Utilization Review - Graham Romero DO - 03/05/2016 2:[address] [facility] Admission Status; Secondary Review Determination Admission Date: 03/05/2016 Under the authority of the Utilization Management Committee, the utilization review process indicated a secondary review on the above patient. The review outcome is based on review of the medical records, discussions with staff, and applying clinical experience noted on the date of the review. (x) Outpatient Status Appropriate - This patient does not meet hospital inpatient criteria. If this patient's primary payer is Medicare and was admitted as an inpatient, Condition Code 44 should be used and patient status changed to outpatient recovery. RATIONALE FOR DETERMINATION 50 year old year old male had a right superficial femoral vein to above knee popliteal procol loop graft. Patient was admitted to the hospital after the procedure. There were no complications reported related to the procedure. Patient has Medicare and the procedure is not on the inpatient list. The surgeon (Dr Witt) agreed that patient can be observed for bleeding and recover in outpatient setting. The severity of illness, intensity of service provided, expected LOS and risk for adverse outcome doesn't meet inpatient hospital admission. The information on this document is developed by the utilization review team in order for the business office to ensure compliance. This only denotes the appropriateness of proper admission status and does not reflect the quality of care rendered. The definitions of Inpatient Status and Observation Status used in making the determination above are those provided in the CMS Coverage Manual, Chapter 1 and Chapter 6, section 70.4. Sincerely, Graham Romero DO MPH Physician Advisor Utilization Management [facility]. Plan of Care - Tahmina Vick RN - 03/05/2016 2:30 PM CDT Problem: Goal Outcome Summary Goal: Goal Outcome Summary Outcome: No Change Pt with flat affect, quiet unless asked questions, good appetite, asking for more food often, deniespain, up with stand by assist in halls, Brief Op Note - Aashish Witt MD - 03/05/2016 10:27 AM CDT [facility] Brief Operative Note Pre-operative diagnosis: END STAGE RENAL DISEASE ON DIALYSIS Post-operative diagnosis Right superficial femoral vein to above knee popliteal procol loop graft. Procedure: Procedure(s): LEFT ABOVE KNEE POPLITEAL TO SUPERFICIAL THIGH FEMORAL VEIN PROCOL GRAFT - Wound Class: I-Clean Surgeon(s): Surgeon(s) and Role: * Rober Saravia MD - Primary * Aashish Witt MD - Resident - Assisting Estimated blood loss: 10 mL Specimens: * No specimens in log * Findings: Palpable in left upper leg loop graft. Associated attestation - Mathieu Moore MD - 03/07/2016 9:53 AM CDT Procedure done with my partner Dr. Saravia Op Note - Rober Saravia MD - 03/05/2016 10:17 AM CDT PREOPERATIVE DIAGNOSIS: Failed left groin dialysis access graft. POSTOPERATIVE DIAGNOSIS: Failed left groin dialysis access graft. PROCEDURE: Left above-knee popliteal to proximal thigh superficial femoral vein ProCol mesenteric vein bypass dialysis graft. SURGEON: Rober Saravia MD PILOT INSTRUCTOR: AASHISH WITT MD, ([facility] [place] resident) ANESTHESIA: General - LMA. PREOPERATIVE MEDICATIONS: Ancef 2 grams IV. INDICATIONS: Julio Cesar Sandhu is a 50-year-old patient who has hypertensive renal on chronic hemodialysis in [place] the dialysis unit. He is presently dialyzing via right groin tunneled catheter. He has no upper arm access options. 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 He presents today for thigh dialysis access graft avoiding the groin area where it was very scarred in. By arterial and venous duplex he has an adequate artery and vein in the thigh for the access. DESCRIPTION OF PROCEDURE: The patient was brought to operating room, induced under general anesthesia and LMA was placed. Left [id number] were prepped and draped in the usual fashion. A timeout was called and the sites were identified. VASCULAR EXPOSURE: We wanted to keep the graft away from the previous graft sites to help prevent recurrent infection and avoid scar tissue. We therefore made a new incision vertically on the proximal one-third of the medial thigh. Dissection was carried with electrocautery to the fascia which was divided vertically. We then dissected down to identify the superficial femoral vein. We mobilized the artery which was calcified, but had a strong pulse. The vein itself measured at least 7 mm in diameter and was completely free of disease. Proximal and distal Silastic vessel loops were placed, preservingall side branches. A second incision was made in the distal medial thigh. Dissection was carried down to identify the proximal portion of the above-knee popliteal artery. The popliteal vein was dissected off without dividing any branches. The artery was moderately calcified but soft in many areas and had a strong pulse.All side branches were preserved and proximal and distal Silastic vessel loops were placed. Popliteal to superficial femoral vein ProCol graft: A 25 cm ProCol 6 mm mesenteric vein graft was selected. This was prepared in the standard fashion. The arterial lumen was already doubled. 3000 unitsof intravenous heparin were given (patient's INR was 1.88 with him holding his Coumadin). Vessel loops were tightened proximally and distally. A 1 cm longitudinal arteriotomy was made in the mildly calcified artery. A small portion of the anterior wall of the artery was excised with an 11 blade scalpel. The luminal diameter was at least 6 mm. Our ProCol graft was sewn in end-to-side fashion with running 6-0 Prolene suture and loupe magnification along with several interrupted 6-0 Prolene sutures used to the calcification. Metal Ligaclips were used to donita the anastomosis. With release of the vesselloops, we had a strong pulse and excellent hemostasis. We allowed the graft to dilate. VENOUS OUTFLOW ANASTOMOSIS: We had mapped the site of the medial thigh where we wanted graft to be passed. In a very gentle curve a Ryann-Wick tunnel was brought in the immediate subcutaneous tissue and the graft was brought through this in a very gentle curve down to our venous outflow tract in the proximal thigh. The graft was controlled with a padded bulldog, with excellent inflow being noted. Vessel loops were tightened around the superficial femoral vein, and a 2 cm longitudinal venotomy was made. The vein was excellent caliber and quality and free of disease. Our ProCol graft was spatulated and end-to-side anastomosis was created with running 6-0 suture and loupe magnification. With release of the padded bulldog, we had a strong pulse within the graft. The outflow vein dilatedvery nicely. We had excellent hemostasis. Both anastomoses marked with metal Ligaclips. We ensured there was no tension or kinking of the graft at both sites. The wounds were infiltrated with 0.5% Marcaine for postop analgesia. Subcutaneous tissue was closed with interrupted 3-0 Vicryl. Skin was closed with 4-0 Monocryl in subcuticular fashion, followed by Steri-Strips and gauze dressing. The patient tolerated the procedure well. Estimated blood loss was less than 10 mL. COMPLICATIONS: None. OPERATIVE FINDINGS: Excellent arterial inflow despite calcification and excellent venous outflow forbovine mesenteric ProCol graft. This will mature for approximately 4 weeks, at which time the dialysis unit may start using the graft so we can remove his tunneled catheter in the right groin. ROBER SARAVIA MD MT: [id number] Name: JULIO CESAR SANDHU Account: [id number] : 1965 Procedure Date: 03/05/2016 Document: [id number] cc: [facility] Rober Saravia MD documented in this encounter Plan of Treatment Not on filedocumented as of this encounter Procedures Procedure Name Priority Date/Time Associated Comments Diagnosis GLUCOSE BY METER Routine 03/06/2016 4:10 PM Resul ts for this CDT procedure are i n the results section. BASIC METABOLIC PANEL Routine 03/06/2016 7:23 AM Results for this CDT procedure are i n the results section. CBC WITH PLATELETS Routine 03/06/2016 7:23 AM Res ults for this CDT procedure are i n the results section. GLUCOSE BY METER Routine 03/06/2016 6:06 AM Resul ts for this CDT procedure are i n the results section. GLUCOSE BY METER Routine 03/05/2016 10:37 Results for this AM CDT procedure are i n the results section. CREATION, 03/05/2016 7:34 AM END STAGE RENAL ARTERIOVENOUS FISTULA, CDT DISEASE ON DIALYSI S LOWER EXTREMITY INR STAT 03/05/2016 6:40 AM Results f or this CDT procedure are i n the results section. HEMOGLOBIN STAT 03/05/2016 6:40 AM Results f or this CDT procedure are i n the results section. BASIC METABOLIC PANEL STAT 03/05/2016 6:40 AM Results for this CDT procedure are i n the results section. LAB RESULT - HIM SCAN 03/02/2016 12:00 AM CDT EKG CARDIAC - HIM SCAN 03/02/2016 12:00 AM CDT documented in this encounter Results (ABNORMAL) Glucose by meter (03/06/2016 4:10 PM CDT) P athologist Signature Glucose 164 (H) 70 - 99 POINT OF CARE mg/dL TEST, GLUCOSE Specimen Anatomical Collection Method Collection Time Receive d Time (Source) Location / / Volume Laterality 03/06/2016 4:10 PM 6 4:16 CDT PM CDT Rober Saravia MD LAB - [facility] POCT Performing Organization Address City/State/ZIP Code Phon e Number FV POINT OF CARE TEST, GLUCOSE POINT OF CARE TEST, GLUCOSE (ABNORMAL) CBC with platelets (03/06/2016 7:23 AM CDT) Analysis Performed At Patho logist Time Signature WBC 7.1 4.0 - 11.0 [facility] 10e9/L [facility] RBC Count 4.18 (L) 4.4 - 5.9 [facility] 10[facility]12/L [facility] Hemoglobin 10.8 (L) 13.3 - [facility] 17.7 g/dL [facility] Hematocrit 34.6 (L) 40.0 - [facility] 53.0 % [facility] MCV 83 78 - 100 [place] fl [facility] MCH 25.8 (L) 26.5 - [facility] 33.0 pg [facility] MCHC 31.2 (L) 31.5 - [facility] 36.5 g/dL [facility] RDW 17.1 (H) 10.0 - [facility] 15.0 % [facility] Platelet Count 110 (L) 150 - 450 [place] 10e9/L [facility] Specimen Anatomical Collection Method Collection Time Receive d Time (Source) Location / / Volume Laterality Blood specimen 03/06/2016 7:23 AM 016 7:28 (specimen) CDT AM CDT Chi Brunson MD LAB - BLOOD ORDERABLES Performing Organization Address City/State/ZIP Code Phon e Number M [facility] [address] [place] [address] [facility] [address] [place] [address], [place] [phone] (ABNORMAL) Basic metabolic panel (03/06/2016 7:23 AM CDT) [facility] Method Time Signature Sodium 134 133 - 144 [place] mmol/L [facility] Potassium 4.0 3.4 - 5.3 [place] mmol/L [facility] Chloride 98 94 - 109 [place] mmol/L [facility] Carbon Dioxide 24 20 - 32 [place] mmol/L [facility] Anion Gap 12 3 - 14 [place] mmol/L [facility] Glucose 106 (H) 70 - 99 [place] mg/dL [facility] Urea Nitrogen 51 (H) 7 - 30 [place] mg/dL [facility] Creatinine 11.00 (H) 0.66 - [place] 1.25 mg/dL [facility] GFR Estimate 5 (L) >60 [place] mL/min/1.[address] Comment: Non GFR Calc GFR Estimate If Black 6 (L) >60 mL/min/1.7m2 F [facility] Comment: GFR Calc Calcium 8.3 (L) 8.5 - 10.1 mg/dL [facility] Specimen Anatomical Collection Method Collection Time Receive d Time (Source) Location / / Volume Laterality Blood specimen 03/06/2016 7:23 AM 016 7:28 (specimen) CDT AM CDT Aashish Witt MD LAB - BLOOD ORDERABLES Performing Organization Address City/State/ZIP Code Phon e Number M [facility] [address] [place] [address] [facility] [address] [place] [address], [place] [phone] (ABNORMAL) Glucose by meter (03/06/2016 6:06 AM CDT) P athologist Signature Glucose 107 (H) 70 - 99 POINT OF CARE mg/dL TEST, GLUCOSE Specimen Anatomical Collection Method Collection Time Receive d Time (Source) Location / / Volume Laterality 03/06/2016 6:06 AM 6 6:10 CDT AM CDT Rober Saravia MD LAB - [facility] POCT Performing Organization Address City/State/ZIP Code Phon e Number FV POINT OF CARE TEST, GLUCOSE POINT OF CARE TEST, GLUCOSE Glucose by meter (03/05/2016 10:37 AM CDT) athologist Signature Glucose 73 70 - 99 POINT OF CARE mg/dL TEST, GLUCOSE Specimen Anatomical Collection Method Collection Time Receive d Time (Source) Location / / Volume Laterality 03/05/2016 10:37 03/05/2016 AM CDT 10:40 AM CDT Rober Saravia MD LAB - [facility] POCT Performing Organization Address City/[facility]/ZIP Code Phon e Number FV POINT OF CARE TEST, GLUCOSE POINT OF CARE TEST, GLUCOSE (ABNORMAL) Hemoglobin (03/05/2016 6:40 AM CDT) athologist Signature Hemoglobin 10.9 (L) 13.3 - 17.7 [place] g/dL [facility] Specimen Anatomical Collection Method Collection Time Receive d Time (Source) Location / / Volume Laterality Blood specimen 03/05/2016 6:40 AM 016 6:56 (specimen) CDT AM CDT Rober Saravia MD LAB - BLOOD ORDERABLES Performing Organization Address City/[facility] Phon e Number M [facility] [address] [address] [facility] [address] [place] [address], [place] [phone] (ABNORMAL) INR (03/05/2016 6:40 AM CDT) athologist Signature INR 1.81 (H) 0.86 - 1.14 [facility] Specimen Anatomical Collection Method Collection Time Receive d Time (Source) Location / / Volume Laterality Blood specimen 03/05/2016 6:40 AM 016 6:56 (specimen) CDT AM CDT Rober Saravia MD LAB - BLOOD ORDERABLES Performing Organization Address City/State/ZIP Code Phon e Number M [facility] [address] [address] [phone] [facility] [address] [address], [place] [phone] (ABNORMAL) Basic metabolic panel (03/05/2016 6:40 AM CDT) Analysis Performed At Path logist Time Signature Sodium 137 133 - 144 [place] mmol/L [facility] Potassium 3.3 (L) 3.4 - 5.3 [place] mmol/L [facility] Chloride 99 94 - 109 [place] mmol/L [facility] Carbon Dioxide 25 20 - 32 [place] mmol/L [facility] Anion Gap 13 3 - 14 [place] mmol/L [facility] Glucose 81 70 - 99 [place] mg/dL [facility] Urea Nitrogen 35 (H) 7 - 30 [place] mg/dL [facility] Creatinine 8.67 (H) 0.66 - [place] 1.25 mg/dL [facility] GFR Estimate 6 (L) >60 [place] mL/min/1.[address] Comment: Non GFR Calc GFR Estimate If Black 8 (L) >60 mL/min/1.7m2 F [facility] Comment: GFR Calc Calcium 8.7 8.5 - 10.1 mg/dL [facility] Specimen Anatomical Collection Method Collection Time Receive d Time (Source) Location / / Volume Laterality Blood specimen 03/05/2016 6:40 AM 016 6:56 (specimen) CDT AM CDT Rober Saravia MD LAB - BLOOD ORDERABLES Performing Organization Address City/State/ZIP Code Phon e Number M [facility] [address] [phone] [facility] [address] [address], [place] [phone] LAB RESULT - HIM SCAN (03/02/2016 12:00 AM CDT) Specimen (Source) Anatomical Location Collection Method / Collectio n Time Received Time / Laterality Volume 03/02/2016 Narrative This result has an attachment that is no t available. Provider Outside NON-BEAKER LAB TESTING EKG CARDIAC - HIM SCAN (03/02/2016 12:00 AM CDT) Specimen (Source) Anatomical Location Collection Method / Collectio n Time Received Time / Laterality Volume 03/02/2016 Narrative This result has an attachment that is no t available. Provider Outside ECG ORDERABLES documented in this encounter Visit Diagnoses Diagnosis Postoperative observation Other specified aftercare following surg philip documented in this encounter Administered Medications Inactive Administered Medications - up to 3 most recent administrations Medication Order MAR Action Action Date Dose Rate Site 0.9% sodium chloride BOLUS New Bag 03/06/2016 10:38 AM CDT 250 mLs Hemodialysis Machine, 250 mL, ONCE, On 03/06/16 at 0745, For 1 dose, For Dialyzer Prime. (In Dialyzer), Dialysis 0.9% sodium chloride infusion New Bag 03/05/2016 7:22 AM CDT 10 mL/hr at 10 mL/hr, Intravenous, CONTINUOUS, IF patient on dialysis., Pre-procedure, Starting on Tue03/05/16 at 0630, Until Tue03/05/16 at 1029 acetaminophen (TYLENOL) tablet 650 mg Given 03/06/2016 4:44 PM CDT 650 mg 650 mg, Oral, EVERY 6 HOURS PRN, mild pain, Starting on Tue03/05/16 at 1201, Do not use if patient has an active opioid/acetaminophen analgesic order for pain. Maximum acetaminophen dose from all sources = 75 mg/kg/day not to exceed 4 grams/day., Post-procedure Given 03/05/2016 3:37 PM CDT 650 mg bisacodyl (DULCOLAX) EC tablet 10 mg Given 03/05/2016 3:37 PM CDT 10 mg 10 mg, Oral, USER SPECIFIED (Once per day on Tue), First dose on Tue03/05/16 at 1415, DO NOT CRUSH. On Non-Dialysis days calcium acetate (PHOSLO) capsule 1,334 m g Given 03/06/2016 1:00 PM CDT 1,334 mg 1,334 mg, Oral, 3 TIMES DAILY WITH MEALS, First dose on Tue03/05/16 at 1215 Given 03/05/2016 6:05 PM CDT 1,334 mg Given 03/05/2016 3:37 PM CDT 1,334 mg cholecalciferol (vitamin D) tablet 2,000 Given 016 3:37 PM CDT 2,000 Units Units 2,000 Units, Oral, DAILY, First dose on Tue03/05/16 at 1215 lisinopril (PRINIVIL,ZESTRIL) tablet 40 mg Given 03/06/2016 1:00 PM CDT 40 mg 40 mg, Oral, DAILY, First dose on 03/06/16 at 0900 potassium chloride 10 mEq in 100 mL New Bag 03/05/2016 3:41 PM CDT 10 mEq intermittent infusion with 10 mg lidocai ne 10 mEq, Intravenous, Administer over 1 Hours, EVERY HOUR, First dose on Tue03/05/16 at 1500, For 2 doses New Bag 03/05/2016 2:42 PM CDT 10 mEq simvastatin (ZOCOR) tablet 40 mg Given 03/05/2016 9:15 PM CDT 40 mg 40 mg, Oral, EVERY EVENING, First dose on Tue03/05/16 at 2000 sodium chloride (PF) 0.9% PF flush 3 mL Given 03/05/2016 9:15 PM CDT 3 mLs 3 mL, Intravenous, EVERY 8 HOURS, First dose on Tue03/05/16 at 1215, to lock peripheral IV dormant line. Also Ordered Q1H PRN, Post-procedure vitamin B complex with vitamin C (STRESS Given 03/05/2016 9:15 P M CDT 1 tablet TAB) tablet 1 tablet 1 tablet, Oral, EVERY EVENING, First dose on Tue03/05/16 at 2000 warfarin (COUMADIN) tablet 5 mg Given 03/05/2016 6:05 PM CDT 5 mg 5 mg, Oral, ONCE AT 6PM, On Tue03/05/16 at 1800, For 1 dose documented in this encounter Active and Recently Administered Medications Times are shown in CDT. Scheduled Medication Order 03/04/2016 03/05/2016 03/06/2016 0.9% sodium chloride BOLUS (COMPLETED) 1038 (New Bag - Provider: Angie Gotti RN) Hemodialysis Machine, 250 mL, ONCE, 03/06/16 at 0745, For 1 dose, For Dialyzer Prime. (In Dialyzer), Dialysis bisacodyl (DULCOLAX) EC tablet 10 mg (CANCELED) 1537 (Given - Provider: Tahmina Vick RN - Comment: not verifed by pharmacy) 10 mg, Oral, USER SPECIFIED (Once per da y on Sun Tue), First dose on Tue03/05/16 at 1415, DO NOT CRUSH. On Non-Dialysis days calcium acetate (PHOSLO) capsule 1,334 mg (CANCELED) 1537 (Given - Provider: Tahmina Vick RN)1805 (Given - Provider: Tahmina Vick RN) 0959 (Not Given - Provider: Tahmina Vick RN - Reason: Patient not available - Comment: dialysis)1300 (Given - Provider: Tahmina Vick RN) 1,334 mg, Oral, 3 TIMES DAILY WITH MEALS, First dose on 03/05 at 1215 CeFAZolin Sodium-Dextrose (ANCEF) intermittent infusion 2 g (COMPLETED) 0722 (Handoff - Provider: Angie Sy RN)0745 (Given - Provider: Rose Marie Dean APRN CRNA) 2 g, Intravenous, PRE-OP/PRE-PROCEDURE, Starting Tue03/05/16 at 0623, For 1 dose, Give first dose within 1 hour PRIOR to incision. If patient weight is greater than or equal to 120 kg increase dose to 3 g., Indications: Surgical Prophylaxis, Pre-procedure cholecalciferol (vitamin D) tablet 2,000 Units (CANCELED) 1537 (Given - Provider: Tahmina Vick RN) 1000 (Not Given - Provider: Tahmina ibarra RN - Reason: Other - Comment: dialysis) 2,000 Units, Oral, DAILY, First dose on Tue03/05/16 at 1215 lisinopril (PRINIVIL,ZESTRIL) tablet 40 mg (CANCELED) 1300 (Given - Provider: Tahmina Vick RN) 40 mg, Oral, DAILY, First dose on Tue03/06/16 at 0900 potassium chloride 10 mEq in 100 mL inte rmittent infusion with 10 mg lidocaine (COMPLETED) 1442 (New Bag - Provider: Me isidoro Vick RN)1541 (New Bag - Provider: Tahmina Vick RN) 10 mEq, Intravenous, for 1 Hours, EVERY HOUR, First dose on Tue03/05/16 at 1500, For 2 doses simvastatin (ZOCOR) tablet 40 mg (CANCELED) 2114 (Given - Provider: Daniela Holland, LINDA) 40 mg, Oral, EVERY EVENING, First dose on Tue03/05/16 at 2000 sodium chloride (PF) 0.9% PF flush 3 mL (CANCELED) 1324 (Not Given - Provider: Tahmina Vick RN - Reason: IV Infusing)2114 (Given - Provider: Daniela Holland, LINDA) 0515 (Canceled Entry - Provider: Daniela Holland, LINDA)1000 (Canceled Entry - Provider: Tahmina Vick RN)1300 (Not Given - Provider: Tahmina Vick RN - Reason: Loss of IV access) 3 mL, Intravenous, EVERY 8 HOURS, First dose on Tue03/05/16 at 1215, to lock peripheral IV dormant line. Also Ordered Q1H PRN, Post-procedure vitamin B complex with vitamin C (STRESS TAB) tablet 1 table t (CANCELED) 2114 (Given - Provider: Daniela Holland, LINDA) 1 tablet, Oral, EVERY EVENING, First dose on Tue03/05/16 at 2000 warfarin (COUMADIN) tablet 5 mg (COMPLETED) 180 (Given - Provider: Tahmina Vick RN) 5 mg, Oral, ONCE AT 6PM, Tue03/05/16 at 1800, For 1 dose Continuous Medication Order 03/04/2016 03/05/2016 03/06/2016 0.9% sodium chloride infusion (CANCELED) 0722 (New Bag - Provider: Angie Sy, LINDA)0733 (Anesthesia Volume Adjustment - Provider: Rose Marie Dean APRN WEB DESIGN INTERN)0922 (Anesthesia Volume Adjustment - Provider: Rose Marie Dean APRN WEB DESIGN INTERN)1034 (Stopped - Provider: Rose Marie Dean APRN WEB DESIGN INTERN) at 10 mL/hr, Intravenous, CONTINUOUS, IF patient on dialysis., Pre-procedure, Starting Tue03/05/16 at 0630, Until Tue03/05/16 at 1029 PRN Medication Order 03/04/2016 03/05/2016 03/06/2016 250mL NaCl/2,500 Units heparin (CANCELED) 0824 (Given - Provider: Rober Saravia MD - Comment: irrigation) PRN, Starting Tue03/05/16 at 0824, Intra-procedure acetaminophen (TYLENOL) tablet 650 mg (CANCELED) 1537 (Given - Provider: Tahmina Vick, RN) 1644 (Given - Provider: Tahmina Vick , RN) 650 mg, Oral, EVERY 6 HOURS PRN, mild pa in, Starting Tue03/05/16 at 1201, Do not use if patient has an active opioid/acetaminophen analgesic order for pain. Maximum acetaminophen dose from all sources = 75 mg/kg/day not to exceed 4 grams/day., Post-procedure bupivacaine (MARCAINE) injection 0.5% (CANCELED) 1010 (Given - Provider: Rober Saravia MD) PRN, Starting Tue03/05/16 at 1010, Intra-procedure heparin 10,000 units in 500 mL 0.9% NaCl (CANCELED) 0825 (Given - Provider: Rober Saravia MD - Comment: Rinse bath for procol graft. Heparin 20,000units in 500ml of Sterile NaCl) PRN, Starting Tue03/05/16 at 0825, Intra-procedure documented in this encounter Care Teams Buttonhole Facer Relationship Specialty Start Date End Date Preet Huff PCP - General 06/24/11 documented as of this encounter
--- OUTSIDE RECORDS SUMMARY | 2022-09-01 20:15 | XMS_ITS | Encounter Summary ---
:1965 Author Organization [place] Address [address] [facility] [place] [address] Care Team Providers Name Role Phone Preet Huff Primary Care Provider Encounter Details Date Type Department Care Team Description 12/30/2015 Hospital Encounter [facility] Jaxon Saravia stage renal disease on dialysis (H); [facility] MD Preet Complication of vascular access for dial ysis [address] [place] [address] [place] [address] [phone] Social History Tobacco Use Types Packs/Day Years Used Date Smoking Tobacco: Never Smokeless Tobacco: Never Alcohol Use Standard Drinks/Week Comments No 0 (1 standard drink = 0.6 oz pure alcoho l) Sex Assigned at Date Recorded Not on file documented as of this encounter Medications at Time of Discharge Medication Sig Dispensed Refills Start Date End Date Calcium Acetate, Phos Take 1,334 mg by 0 Binder, (CALCIUM ACETATE mouth 3 times daily PO) (with meals) Takes with meals (2 x 667mg tablet) Cholecalciferol (VITAMIN Take 2,000 Units by 0 D3 PO) mouth every evening LISINOPRIL PO Take 40 mg by mouth 0 daily (Takes 2 x 20mg tablet = 40mg ) b schmxaw-O-bfykp acid Take 1 capsule by 0 03/04/2016 (NEPHROCAPS) 1 MG mouth daily (with capsule dinner) simvastatin (ZOCOR) 40 Take 40 mg by mouth 0 12/16/2017 MG tablet every evening amLODIPine (NORVASC) 10 On non-dialysis days 30 tablet 0 03/04/2016 MG tabletIndications: M, , , Tuesday Essential hypertension bisacodyl (DULCOLAX) 5 Take 10 mg by mouth 0 12/16/2017 MG EC tablet See Admin Instructions Take on Once Daily on M, W, , (Non-dialysis days only) calcium acetate (PHOSLO) Take 667 mg by mouth 0 12/16/2017 667 MG CAPS every evening With a snack Metoprolol Tartrate Take 200 mg by mouth 0 03/05/2016 (LOPRESSOR PO) 2 times daily In the AM and at Noon. Takes on , , , (Non-dialysis days only) (Takes 2 x 100mg tablet = 200mg) vitamin B complex with Take 1 tablet by 0 04/25/2017 vitamin C (VITAMIN B mouth every evening COMPLEX) TABS WARFARIN SODIUM PO Take 5 mg by mouth 0 12/19/2017 every evening documented as of this encounter Plan of Treatment Not on filedocumented as of this encounter Procedures Procedure Name Priority Date/Time Associated Diagnosis Comme nts US LOWER EXTREMITY Routine 12/30/2015 2:46 PM End stage renal Results for this ARTERIAL DUPLEX CDT disease on dialysis proce dure are in LEFT (H) the results Complication of section. vascular access for dialysis documented in this encounter Results US Lower Extremity Arterial Duplex Left (12/30/2015 2:46 PM CDT) Anatomical Region Laterality Modality Lower Extremity Ultrasound Specimen (Source) Anatomical Location Collection Method / Collectio n Time Received Time / Laterality Volume Narrative 12/30/2015 3:03 PM CDT US LOWER EXTREMITY ARTERIAL DUPLEX LEFT ??12/30/2015 2:46 PM HISTORY: ??50-year-old male with chronic renal insufficiency. Patient requires creation of a left superficial femoral artery the superficial femoral vein dialysis fistula. COMPARISON: None. FINDINGS: Spectral waveform analysis was performed. The left superficial femoral artery appears paten t without significant stenosis. Multiphasic waveforms are note d in the artery MICHELE FUENTES MD Procedure Note Michele Fuentes MD - 12/30/2015F ormatting of this note might be different from the original. US LOWER EXTREMITY ARTERIAL DUPLEX LEFT 12/30/2015 2:46 PM HISTORY: 50-year-old male with chronic r enal insufficiency. Patient requires creation of a left superficial femoral artery the superficial femoral vein dialysis fistula. COMPARISON: None. FINDINGS: Spectral waveform analysis was performed. The left superficial femoral artery appears paten t without significant stenosis. Multiphasic waveforms are note d in the artery MICHELE FUENTES MD Jaxon Saraiva MD IMG US ORDERABLES documented in this encounter Visit Diagnoses Diagnosis End stage renal disease on dialysis (H) End stage renal disease Complication of vascular access for dial ysis Other and unspecified complications of m edical care, not elsewhere classified documented in this encounter Care Teams [employer] Phot[employer] Detailer Relationship Specialty Start Date End Date Preet Huff PCP - General 06/24/11 documented as of this encounter
--- OUTSIDE RECORDS SUMMARY | 2022-09-01 20:15 | XMS_ITS | Encounter Summary ---
:1965 Author Organization [place] Address [address] [facility] [place] [address] Care Team Providers Name Role Phone Preet Huff Primary Care Provider Reason for Visit Reason Onset Date Comments Nurse Advice Line 01/05/2016 Encounter Details Date Type Department Care Team Description 01/05/2016 Telephone [facility] Vascular Janell Edgar RN Nurse Advice Line [place] [id number] [address] Social History Tobacco Use Types Packs/Day Years Used Date Smoking Tobacco: Never Smokeless Tobacco: Never Alcohol Use Standard Drinks/Week Comments No 0 (1 standard drink = 0.6 oz pure alcoho l) Sex Assigned at Date Recorded Not on file documented as of this encounter Miscellaneous Notes Telephone Encounter - Janell Edgar RN - 01/05/2016 4:50 PM CDT RN call out to Dr. Saravia, notified MD of pt wound update. notes pt on antibiotics with dialysis, notes better wound cleansing with soap and a little hydrogen peroxide with dressing changes. RN called Rocio nurse at [facility] care back and explained, pt has two wounds, the larger wound from groin to thigh is the wound that has brown serous odorous drainage. The dime size inferior edge of thigh wound does not have drainage. Rocio notes concern about family caregiver lack of feedback with education and current eye infection, rocio notes has tried to educate caregiver with good hand washing, dressings and wound care, caregiver has not been able to demonstrate care back to Rocio in order for [facility] to accurately assess care. Home care does dressing changes M-W-F each week. RN discussed MD recommendation, Rocio notes understanding. Janell Edgar RN BSN Telephone Encounter - Janell Edgar RN - 01/05/2016 4:34 PM CDT RN called out to dialysis to verify if and which antibiotic pt is on with dialysis runs. Left vmm Janell Edgar RN BSN Telephone Encounter - Janell Edgar RN - 01/05/2016 4:30 PM CDT Rocio nurse from [facility] called, notes pts wound dressing/half the ABD had serous browndrainage with odor noted today. This was not there last Tuesday. Pt is afebrile, pulse and blood pressure are okay. Rocio notes she believes pt is on antibiotics with dialysis. Janell Edgar RN BSN documented in this encounter Plan of Treatment Not on filedocumented as of this encounter Visit Diagnoses Not on filedocumented in this encounter Care Teams Mat Cutter Relationship Specialty Start Date End Date Preet Huff PCP - General 06/24/11 documented as of this encounter
--- OUTSIDE RECORDS SUMMARY | 2022-09-01 20:15 | XMS_ITS | Encounter Summary ---
:1965 Author Organization [place] Address [address] [facility] [place] [address] Care Team Providers Name Role Phone Preet Huff Primary Care Provider Reason for Visit Reason Onset Date Comments Nurse Advice Line 03/23/2016 Encounter Details Date Type Department Care Team Description 03/23/2016 Telephone [facility] Vascular Janell Edgar, LINDA Nurse Advice Line [place] [id number] [address] Social History Tobacco Use Types Packs/Day Years Used Date Smoking Tobacco: Never Smokeless Tobacco: Never Alcohol Use Standard Drinks/Week Comments No 0 (1 standard drink = 0.6 oz pure alcoho l) Sex Assigned at Date Recorded Not on file documented as of this encounter Miscellaneous Notes Telephone Encounter - Janell Edgar RN - 03/23/2016 10:44 AM CDT Pt history of Left AK popliteal - proximal thigh SFV Procal graft on 03-05-16. Rocio from home care called, noting thigh site has light brown discharge and pain. Denies odor, hardness or redness. Rocio notes dressing was loose yesterday and pt did self dressing change, also notes Dialysis center has been doing dressing changes and dialysis noted to her no problems with dialyzing. I called [facility] and spoke to nurse Heidi who notes she received two conflicting calls regarding site of drainage, Heidi notes pt dialyzing via right central line cath, she assessed it today and looks fine, left thigh graft bruit and thrill are present, pt also has right upper hip cath which they do not assess other than ensuring dressing is intact. Heidi notes dialysis and blood pressures are well, no current concerns. RN to discuss with Dr. Saravia. Janell Edgar, RN,BSN. documented in this encounter Plan of Treatment Not on filedocumented as of this encounter Visit Diagnoses Not on filedocumented in this encounter Care Teams Dehydrator Relationship Specialty Start Date End Date Preet Huff PCP - General 06/24/11 documented as of this encounter
--- OUTSIDE RECORDS SUMMARY | 2022-09-01 20:15 | XMS_ITS | Encounter Summary ---
:1965 Author Organization [place] Address [address] [facility] [place] [address] Care Team Providers Name Role Phone Preet Huff Primary Care Provider Encounter Details Date Type Department Care Team Description 12/26/2015 Telephone [facility] Jaxon Saravia, Clinic Shital HARPER [address] [place] [address] [place] [address] [phone] (Wo rk) Social History Tobacco Use Types Packs/Day Years Used Date Smoking Tobacco: Never Smokeless Tobacco: Never Alcohol Use Standard Drinks/Week Comments No 0 (1 standard drink = 0.6 oz pure alcoho l) Sex Assigned at Date Recorded Not on file documented as of this encounter Miscellaneous Notes Telephone Encounter - Radha Blancas - 12/26/2015 1:54 PM CDT I called Thelma to change Herminio's appointment time for December [address] Saravia would likean ultrasound done prior. Thelma said they need to cancel that appointment and she has an appt scheduled on 01/08/[address] Saravia. I told her that Dr. Saravia wanted to see him sooner. Thelma said that the transportation company told her they are so booked that they do not have time until the end ofthe month. Thelma is going to call them to change the arrival time for the 01/08/16 appt to 1:00 so we can get the ultrasound done prior to seeing Dr. Saravia. She has my number and will call me if the time change is an issue. Radha Blancas, Field Geologist documented in this encounter Plan of Treatment Not on filedocumented as of this encounter Visit Diagnoses Not on filedocumented in this encounter Care Teams Core Shaper Sides Relationship Specialty Start Date End Date Preet Huff PCP - General 06/24/11 documented as of this encounter
--- OUTSIDE RECORDS SUMMARY | 2022-09-01 20:15 | XMS_ITS | Encounter Summary ---
:1965 Author Organization [place] Address [address] [facility] [place] [address] Care Team Providers Name Role Phone Preet Huff Primary Care Provider Encounter Details Date Type Department Care Team Description 12/30/2015 Office Visit [facility] Jaxon Saravia Cellulit is and abscess of leg, except foot (Primary Dx); Vascular Clinic Mk Oviedo MD ESRD (end stage renal disease) on dialys is (H) [address] [place] [address] [place] [id number] Social History Tobacco Use Types Packs/Day Years Used Date Smoking Tobacco: Never Smokeless Tobacco: Never Alcohol Use Standard Drinks/Week Comments No 0 (1 standard drink = 0.6 oz pure alcoho l) Sex Assigned at Date Recorded Not on file documented as of this encounter Progress Notes Jaxon Saravia MD - 12/30/2015 2:01 PM CDT Herminio Victor and his aunt return to see me in the office today. His end- stage renal disease is dialyzing via right femoral catheter at the [facility]. 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 Both inflow and outflow stenoses and was ligated. He this is developed a abscess of this area. The requiring operative eye in the 12/19/15. The remnant of the PTFE and the outflow femoral vein was removed. The wound was left open. Patient continues on his dialysis patients receiving Ancef with dialysis runs. He aunt notes a large amount of drainage from the site requiring several dressing changes daily. [facility] is also involved. Patient feels good with no signs of sepsis. He returns today to evaluate the wound. We also wanted to evaluate his thigh SFV and SFA To see if we could place the mid thigh new access and avoid going back into the scarred groin area. Exam: Alert and appropriate. Ambulate with no difficulty. Dressings were removed from the left thigh. Some greenish Pseudomonas drainage is noted but no evidence of cellulitis. The open area measures proximally 10 cm in length by 2 cm with a 2 cm fibrin overlying this. The secondary opening distally Measuring 2 x 0.5 with hyper granulation. Procedure: Timeout was called and sites were identified. Using a 15 blade scalpel full-thickness/subcutaneous excisional debridement was performed to areas with healthy bleeding tissue noted and no undermining. Less than 20 cm2 debridement was performed. Gauze dressings were applied. He tolerated this with no discomfort Patient will undergo duplex ultrasound to evaluate his circulation for potential left thigh loop ProCol graft. The wound will have to heal to prevent infection before placing the new graft. Patient will follow-up in two weeks. Jaxon Saravia MD documented in this encounter Plan of Treatment Not on filedocumented as of this encounter Procedures Procedure Name Priority Date/Time Associated Diagnosis Comme nts HC DEBRIDEMENT WOUND UP Routine 12/30/2015 2:01 PM Cellulitis and abscess TO 20 SQ CM CDT of leg, except foot documented in this encounter Visit Diagnoses Diagnosis Cellulitis and abscess of leg, except fo ot - Primary ESRD (end stage renal disease) on dialys is (H) End stage renal disease documented in this encounter Care Teams Produce Associate Relationship Specialty Start Date End Date Preet Huff PCP - General 06/24/11 documented as of this encounter
--- OUTSIDE RECORDS SUMMARY | 2022-09-01 20:15 | XMS_ITS | Encounter Summary ---
:1965 Author Organization [place] Address [facility] [place] [address] Care Team Providers Name Role Phone Preet Huff Primary Care Provider Reason for Visit Reason Comments Surgical Followup post op, oksana Maxwell thigh proc ol dialysis graft Encounter Details Date Type Department Care Team Description 04/01/2016 Office Visit [facility] Jaxon Saravia AVF (art eriovenous fistula) (H) (Primary Dx); Vascular Clinic Mk Oviedo MD ESRD (end stage renal disease) on dialys is (H) [address] [place] [address] [place] [id number] Social History Tobacco Use Types Packs/Day Years Used Date Smoking Tobacco: Never Smokeless Tobacco: Never Alcohol Use Standard Drinks/Week Comments No 0 (1 standard drink = 0.6 oz pure alcoho l) Sex Assigned at Date Recorded Not on file documented as of this encounter Last Filed Vital Signs Vital Sign Reading Time Taken Comments Blood Pressure 122/58 04/01/2016 1:15 PM CDT R Pulse 68 04/01/2016 1:15 PM CDT Temperature - - Respiratory Rate - - Oxygen Saturation - - Inhaled Oxygen Concentration - - Weight - - Height - - Body Mass Index - - documented in this encounter Progress Notes Jaxon Saravia MD - 04/01/2016 2:11 PM CDT Images from the original note were not included. Herminio Victor Return to see me in the office today. He's been dialyzing via right groin tunnelcatheter at the [place] unit. We needed to remove infected graft in the left groin. Once the infection was resolved We placed a right medial thigh Procol mesenteric vein graft on 03-05-16. The distal anastomosis was in the above-knee popliteal artery and the outflow anastomosis was in the proximal superficial femoral vein. He apparently had some swelling at the incisions was seen in the emergency department in [place] several weeks ago and I talked with the physician with no evidence of infection. He otherwise has been doing well and complains of no discomfort. Exam: Appropriate. Blood pressure 122/58. Pulse 68. Chest= clear Well-healed left thigh incisions. Excellent easily palpable pulse within the Procol with a good thrill. Good biphasic Doppler signals to the distal left anterior tibial artery indicative of adequate distal flow with the dialysis access functioning. Impression: Well-functioning left thigh Procol graft. The dialysis unit may start using this starting and is run tomorrow. He will then need to have his right groin tunnel catheter removed at the interventional radiology department either here at [facility] or at the [facility]. It would not be necessary to hold his Coumadin for removal of the catheter. Due to the multiple access problems he's had in the past--we will follow this new Procol graft witha duplex ultrasound in 3-4 months. Jaxon Saravia MD Please route or send letter to: [facility] dialysis unit HPI ROS Physical Exam documented in this encounter Nursing Notes Aleta Chen RN - 04/01/2016 1:15 PM CDT Chief Complaint Patient presents with ??? Surgical Followup post op, create L thigh procol dialysis graft Initial BP 122/58 mmHg Pulse 68 Estimated body mass index is 29.65 kg/(m^2) as calculated from thefollowing: Height as of 03/05/16: 5' 4 (1.626 m). Weight as of 03/05/16: 172 lb 13.5 oz (78.4 kg). BP completed using cuff size: regular Face to face time: 5 minutes Aleta Chen CMA documented in this encounter Plan of Treatment Not on filedocumented as of this encounter Visit Diagnoses Diagnosis AVF (arteriovenous fistula) (H) - Primar y Arteriovenous fistula, acquired ESRD (end stage renal disease) on dialys is (H) End stage renal disease documented in this encounter Care Teams Veterans Contact Representative Relationship Specialty Start Date End Date Preet Huff PCP - General 06/24/11 documented as of this encounter
--- OUTSIDE RECORDS SUMMARY | 2022-09-01 20:15 | XMS_ITS | Encounter Summary ---
:1965 Author Organization [place] Address [address] [facility] [place] [address] Care Team Providers Name Role Phone Preet Huff Primary Care Provider Reason for Visit Auth/Cert Specialty Diagnoses / Procedures Referred By Contact Refer red To Contact Surgery Diagnoses END STAGE RENAL DISEASE ON DIALYSIS Sh Periop Services Procedures REVISION FISTULA ARTERIOVENOUS LOWER EXTREMITY [address] [place] [address] Phone: Referral ID Status Reason Start Date Expiration Date Visits Requ ested Visits Authorized [id number] 1 1 Encounter Details Date Type Department Care Team Description 03/05/2016 Anesthesia Event [facility] Den Jones MD [facility] ANESTHESIA [address] [place] [phone] [place] [facility] Tom Mccord [facility] ANESTHESIOLOGIS [address] [facility] [place] [address] [place] [address] Anesthesia Record Procedure Summary Procedure Name Responsible Anesthesia Start Anesthesia Stop Anesthesiologist Time Time LEFT ABOVE KNEE Den Jones MD 03/05/16 0733 1037 POPLITEAL TO SUPERFICIAL THIGH FEMORAL VEIN PROCOL GRAFT (Left: Leg) Events Date Time Event Comment 03/05/2016 0706 0733 An Start 0734 An Start Data 0738 Present 0740 An Induction 0742 An Intubation 0742 AN START SEVO 0749 Present 0759 AN INCISION 0859 Present 1014 AN END SEVO 1021 Present 1023 AN Extubation 1024 an stop data 1037 An Stop Electronically s igned by Rose Marie Dean on March 05, 2016 10:37 AM Name Total ePHEDrine 5 mg/mL 15 mg fentaNYL (SUBLIMAZE) injection 100 mcg glycopyrrolate 0.2mg/mL 0.4 mg lidocaine 2% 60 mg neostigmine 1mg/mL 3 mg ondansetron 2mg/mL 4 mg propofol (DIPRIVAN) injection 10 mg/mL vial 200 mg succinylcholine 20 mg/mL 100 mg CeFAZolin Sodium-Dextrose (ANCEF) intermittent infusio n 2 g 2 g midazolam (VERSED) 1 MG/ML injection 1 mg cisatracurium 2mg/mL 4 mg heparin 1,000 units/mL 3,000 Units 0.9% sodium chloride infusion 500 mL Agents Name O2 N2O Air Exp Sevoflurane Ins Sevoflurane Blood No blood administrations on file. Lines, Drains, and Airways Type Details Placement Removal Hemodialysis Vascular Arteriovenous fistula; 05/08/14 1016 by Access Left; Femoral vein Incision/Surgical Site 10/20/11; 2000; Lower, 10/20/112000 by 1 11/18/15 1120 by Right; Arm; 09/17/16; Mona Vang Johnso n, Lisa D, 1120 RN RN Incision/Surgical Site 10/20/11; 2002; Upper, 10/20/112002 by 1 11/18/15 1120 by Right; Arm; 09/17/16; Mona Vang Johnso n, Lisa D, 1120 RN RN Incision/Surgical Site 05/03/12; 1600; Right; 05/03/12 1600 by 1 11/18/15 1120 by Groin; 09/17/16; 1120 Monserrat Blake RN Johns on, Lisa D, valuation manager Vascular Arteriovenous fistula; 08/03/12 1948 by 1120 by Access Right; Megan Cho RN Incision/Surgical Site 08/08/12; 1527; Right; 08/08/12 1527 by 1 11/18/15 1120 by Groin; 09/17/16; 1120 Macie Amin L isa D, Israel RN RN Incision/Surgical Site 08/09/12; 1401; Right; 08/09/12 1401 by 1 11/18/15 1120 by Groin; 09/17/16; 1120 Aleta Taylor RN Johnson, L isa D, RN Incision/Surgical Site 08/09/12; 1403; 08/09/12 1403 by 09/17/16 1120 by Anterior, Right; Thigh; Aleta Taylor RN Johnson, Lisa D, 09/17/16; 1120 RN Incision/Surgical Site 06/20/13; 1001; Left; 06/20/13 1001 by 1120 by Groin; 09/17/16; 1120 Macie Amin L isa D, Mamaril, RN RN Hemodialysis Vascular Arteriovenous graft; 06/20/13 1646 by 1206/25 1120 by Access Left Megan Ochoa RN Venous Sheath 06/28/13; 1550; 6 Fr; 06/28/13 1550 by 09/17/16 1120 by Other (Comment) (right Hans Pérez, Megan Jolley, fistula); Right; F RN Gina; 09/17/16; 1120 Arterial Sheath 06/28/13; 1600; 6 Fr; 06/28/13 1600 by 09/17/16 1120 by Other (Comment) (right Hans Pérez, Megan Jolley, thigh fistula); Right; F LINDA Fuentes; 09/17/16; 1120 Incision/Surgical Site 06/04/14; 1600; Left, 06/04/14 1600 by 1120 by Upper; Thigh; 09/17/16; Esha Garzon, Megan Mcguire, 1120 RN Incision/Surgical Site 07/02/15; 0940; Left; 07/02/15 0940 by 1120 by Groin; 09/17/16; 1120 Don Ramos L isa D, LINDA Ho supervisor park workers Left, Upper; Yes; 08/11/15 1514 by 09/17/16 1120 by 09/17/16; 1120 Megan Ochoa, LINDA Incision/Surgical Site 08/13/15; 2000; Left; 08/13/152000 by 1121 by Leg; upper thigh x3 and Vicki Choe John son, Lisa D, one I&D site; 09/17/16; RN LINDA 1121 Incision/Surgical Site 08/14/15; 1215; Right; 08/14/15 1215 by 1 11/18/15 1121 by Groin; tunneled dialysis Jazmín Elizabeth, Megan Mcguire, catheter; 09/17/16; 1121 RN Incision/Surgical Site 11/19/15; 1812; Left; 11/19/15 1812 by 1121 by Leg; left upper leg Carolyn Garcia, Megan Ochoa, fistula incision; LINDA MCKEON 09/17/16; 1121 RETIRED: CVC Double 11/20/15; 0810; 11/20/15 0810 by 09/17/16 11 21 by Lumen Angiodynamics [place] 2 Anusha Jesus, Megan Og, ; 15.5; [id number]; RN Tunneled; Right; Femoral; Dr. Klein; Sutured; Flouroscopy; IVC; Flouroscopy; hemodialysis Wound 12/19/15; 1217; 12/19/15 1217 by 09/17/16 1121 b y Anterior, Inner, Left, Pavan Roy, Megan Martínez, Upper; Open, small, RN LINDA eraser sized opening at old fistula site; No; 09/17/16; 1121 Wound 01/08/16; 1046; Left; 01/08/16 1046 by 09/17/16 1121 by Recent surgery to lt Jeremy Solano, Megan Ritter, thigh. 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 CR NA Intubation: Easy; Airway Size: 8; Oral; Blade Type: Shipley; Blade Size: 2; Place by: Fauzia Dean; Insertion Attempts: 1; Secured at (cm)to lip: 23 cm; End Tidal CO2: Present; Dentition: Intact; Grade View of Cords: 1 RETIRED ETT 03/05/16; 0742; Mask 03/05/16 0742 by 03/05/16 1 023 by Ventilation: Not Jermaine, Rose Marie, Jermaine, Brenda e, attempted (RSI); 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 of 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 CR NA Intubation: Easy; Airway Size: 8; Cuffed; Oral; Blade Type: Shipley; Blade Size: 2; Place by: Fauzia Dean; Insertion Attempts: 1; Secured at (cm)to lip: 23 cm; Dentition: Intact; Grade View of Cords: 1 Incision/Surgical Site 03/05/16; 1020; Medial, 03/05/16 1020 by 09/17/16 1121 by Upper, Left; Leg; Isis Yen, Megan Ritter, 09/17/16; 1121 RN documented in this encounter Social History Tobacco Use Types Packs/Day Years Used Date Smoking Tobacco: Never Smokeless Tobacco: Never Alcohol Use Standard Drinks/Week Comments No 0 (1 standard drink = 0.6 oz pure alcoho l) Sex Assigned at Date Recorded Not on file documented as of this encounter OR Notes Anesthesia Postprocedure Evaluation - Den Jones MD - 03/05/2016 5:21 PM CDT Patient: Herminio Victor CREATE FISTULA ARTERIOVENOUS LOWER EXTREMITY (Left Leg) Additional InformationProcedure(s): LEFT ABOVE KNEE POPLITEAL TO SUPERFICIAL THIGH FEMORAL VEIN PROCOL GRAFT - Wound Class: I-Clean Diagnosis:END STAGE RENAL DISEASE ON DIALYSIS Diagnosis Additional Information: No value filed. Anesthesia Type: General, ETT Note: Anesthesia Post Evaluation Patient location during evaluation: PACU Patient participation: Able to fully participate in evaluation Level of consciousness: awake and alert Pain management: adequate Airway patency: patent Anesthetic complications: no Cardiovascular status: acceptable Respiratory status: acceptable Hydration status: acceptable Comments: The patient had stated that he felt like he could not move his extremities, eyes, or smile. Since he was taliking and tracking my movement with his eyes, my suspicion for a psychosomatic phenomenon was high. He had a good babinski reflex that resulted in his ability to move both legs. I checked his upper extremities response to light neurostimulation which resulted in curing his ability to move all extremities, eyes, and face on command. PONV: none Last vitals: Filed Vitals: 03/05/16 1330 03/05/16 1430 03/05/16 1555 BP: 127/67 127/68 136/73 Pulse: 65 Temp: 36.6 ??C (97.8 ??F) Resp: 12 12 14 SpO2: 100% 97% 97% Electronically Signed By: Den Jones MD March 05, 2016 5:21 PM Anesthesia Preprocedure Evaluation - Tom Yoon - 03/05/2016 7:05 AM CDT Anesthesia Evaluation . Pt has had prior anesthetic. Type: General and MAC No history of anesthetic complications ROS/MED HX ENT/Pulmonary: (+)sleep apnea, uses CPAP , . . (-) tobacco use Neurologic: Cardiovascular: (+) Dyslipidemia, hypertension----. Taking blood thinners : . . . :. . METS/Exercise Tolerance: Hematologic: (+) History [...] and upper dentures Cardiovascular Pulmonary Anesthesia Plan ASA Score: 3 . Plan for General and ETT - Anesthetic plan, risks, benefits and alternatives discussed with: patient or b2b sales representative. Routine analgesia and antiemetics . History & Physical Review History and physical reviewed and following examination; no interval change. . documented in this encounter Miscellaneous Notes Anesthesia Care Transfer Note - Rose Marie Dean APRN CRNA - 03/05/2016 10:37 AM CDT Patient: Herminio Victor CREATE FISTULA ARTERIOVENOUS LOWER EXTREMITY (Left Leg) Additional [email or web address] Diagnosis: END STAGE RENAL DISEASE ON DIALYSIS Diagnosis Additional Information: No value filed. Anesthesia Type: General, ETT Note: Airway :Face Mask Patient transferred to:PACU Comments: Spont. Resps, pt. Responding. Extubated, sufficient air exchange. To PACU VSS, Monitors on. Report to RN Electronically Signed By: Rose Marie Dean APRN CRNA March 05, 2016 10:37 AM documented in this encounter Plan of Treatment Not on filedocumented as of this encounter Visit Diagnoses Not on filedocumented in this encounter Administered Medications Inactive Administered Medications - up to 3 most recent administrations Medication Order MAR Action Action Date Dose Rate Site CeFAZolin Sodium-Dextrose (ANCEF) Given 03/05/2016 7:45 AM CDT 2 g intermittent infusion 2 g Routine, 2 g, Intravenous, PRE-OP/PRE-PROCEDURE, Starting on Tue03/05/16 at 0623, For 1 dose, Give first dose within 1 hour PRIOR to incision. If patient weight is greater than or equal to 120 kg increase dose to 3 g., Indications: Perioperative Pharmacoprophylaxis, Pre-procedure cisatracurium (NIMBEX) injection Given 03/05/2016 7:54 AM CDT 4 mg PRN, Starting on Tue03/05/16 at 0754, Anesthesia Intra-op ePHEDrine in 0.9% NaCl injection (dilute d) Given 03/05/2016 8:51 AM CDT 10 mg PRN, Starting on Tue03/05/16 at 0847, Anesthesia Intra-op Given 03/05/2016 8:47 AM CDT 5 mg FentaNYL Citrate (PF) (SUBLIMAZE) inject ion Given 03/05/2016 7:54 AM CDT 50 mcg PRN, moderate to severe pain, Starting on Tue03/05/16 at 0754, Anesthesia Intra-op Given 03/05/2016 7:50 AM CDT 50 mcg glycopyrrolate (ROBINUL) injection Given 03/05/2016 10:00 AM CDT 0.4 mg PRN, Starting on Tue03/05/16 at 1000, Anesthesia Intra-op heparin (porcine) injection Given 03/05/2016 8:28 AM CDT 3,000 Units PRN, line flush, Starting on Tue03/05/16 at 0828, Anesthesia Intra-op lidocaine injection 2% (MDV) Given 03/05/2016 7:40 AM CDT 60 mg PRN, Starting on Tue03/05/16 at 0740, Anesthesia Intra-op midazolam (VERSED) 1 MG/ML injection Given 03/05/2016 7:40 AM CDT 1 mg Starting on Tue11/20/15 at 0734, For 1 dose, Anusha Jesus: cabinet override neostigmine (PROSTIGMINE) injection Given 03/05/2016 10:00 AM CDT 3 mg Intravenous, PRN, Starting on Tue03/05/16 at 1000, Anesthesia Intra-op ondansetron (ZOFRAN) injection Given 03/05/2016 9:59 AM CDT 4 mg PRN, nausea, vomiting, Administer over 2-5 Minutes, Starting on Tue03/05/16 at 0959, Anesthesia Intra-op propofol (DIPRIVAN) injection 10 mg/mL v ial Given 03/05/2016 7:45 AM CDT 50 mg PRN, Starting on Tue03/05/16 at 0740, Anesthesia Intra-op Given 03/05/2016 7:40 AM CDT 150 mg succinylcholine (ANECTINE) injection Given 03/05/2016 7:40 AM CDT 100 mg PRN, Starting on Tue03/05/16 at 0740, Anesthesia Intra-op documented in this encounter Care Teams H[employer]head Salvage Relationship Specialty Start Date End Date Preet Huff PCP - General 06/24/11 documented as of this encounter
--- OUTSIDE RECORDS SUMMARY | 2022-09-01 20:15 | XMS_ITS | Encounter Summary ---
:1965 Author Organization [place] Address [address] [facility] [place] [address] Care Team Providers Name Role Phone Preet Huff Primary Care Provider Reason for Visit Auth/Cert Specialty Diagnoses / Procedures Referred By Contact Refer red To Contact Surgery Diagnoses END STAGE RENAL DISEASE ON DIALYSIS Sh Periop Services Procedures REVISION FISTULA ARTERIOVENOUS LOWER EXTREMITY [address] [place] [phone] Phone: Referral ID Status Reason Start Date Expiration Date Visits Requ ested Visits Authorized [id number] 1 1 Encounter Details Date Type Department Care Team Description 03/05/2016 Surgery [facility] Rober Saravia LEFT ABO VE KNEE [place] PeriOP MD Preet POPLITEAL TO Services [address] SUPERFICIAL THIGH [address] FEMORAL VEIN PROCOL [address] [place] [address] [address] [place] [phone] Surgery Details Date/Time Status Location OR Service Patient Case Class Case Tr auma Class Type Case? 03/05/16 7:30 Posted OR OR M General Same Day Outpatient in AM 42 Surgery Bed Panel 1 Procedure LRB Anes Op Region Wound Class Commen ts LEFT ABOVE KNEE POPLITEAL Left General Leg I-Clean LEFT ABOVE KNEE POPLITEAL TO SUPERFICIAL THIGH TO S UPERFICIAL THIGH FEMORAL VEIN PROCOL GRAFT FEMORAL VEIN PROCOL GRAFT Surgeon Surgeon Role Service Panel Robre Saravia MD Primary General 1 Aashish Witt MD Resident - Assisting 1 documented in this encounter Social History [...] Saravia MD - 03/06/2016 3:36 PM CDT [facility] Discharge Summary Vascular Surgery Date of Admission: 03/05/2016 Date of Discharge: 03/06/2016 Discharging Provider: Rober Saravia MD Date of Service (when I saw the patient): 03/06/2016 Discharge Diagnoses Active Problems: Postoperative observation History of Present Illness Julio Cesar Sandhu is a 50-year-old patient who has 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 He is presently dialyzing [...] while denying any pain. He dialyzed at [facility] before his discharge home where he lives with mother and Aunt. Aashish StevensonLorena Witt a Significant Results and Procedures Left groin femoral [...] (Room air) Filed Vitals: 03/05/16 0628 03/06/16 0629 Weight: 84.823 kg (187 lb) 78.4 kg [...] daily note Time Spent on This Encounter I, Aashish StevensonLorena Miryam, personally saw the patient today and spent [...] a follow-up visit in about 2 weeks ([phone]). Full Code Diet Follow this diet upon [...] performed during the hospital encounter of 12/30/15 Lower Extremity Arterial Duplex Left Narrative LOWER EXTREMITY ARTERIAL DUPLEX LEFT 12/30/2015 2:46 [...] as of this encounter Progress Notes Tahmina Vick, LINDA - 03/06/2016 2:04 PM CDT Pt given written and verbal discharge instructions, instructions were also reviewed with pt's aunt via phone, Medications were reviewed and ride is arranged, pt ready for discharge Angie Gotti RN - 03/06/2016 11:00 AM [...] given to:Tahmina Altamirano R.N. Outpatient Dialysis at [place] MWF Aashish Witt MD - 03/06/2016 7:26 AM [...] pain. Aashish Witt Surgery Resident, PGY4 Pager [phone] Chi Brunson MD - 03/05/2016 12:47 PM CDT Notes reviewed. He had HD yday. Plan HD tmrw. 1. KCl 20 x 1. eMll Robles - 03/05/2016 6:21 AM CDT Admission medication history interview status for the 03/05/2016 admission is complete. See [facility] admission navigator for prior to admission medications Medication history source reliability:Poor Medication history interview source(s)Latex Foam Worker Medication history resources (including written lists, pill bottles, clinic record):List from home/phone call Primary pharmacy.[facility] Additional medication history information not noted on PEWTER FABRICATOR med list :None Time spent in this [...] for pt to tranfer to floor per [facility] Jones. Monserrat Torre RN - 03/05/2016 11:01 AM CDT [id number] - pt now fully awake and verbalized inability to move extremities, pt verbal appropriate. MDAWebb paged. 1100hr - [facility] Jones present at bedside. documented in this encounter Miscellaneous Notes Plan of Care - Tahmina Vick RN - 03/06/2016 3:02 PM CDT Talked with aunt again, uncle not able to pick pt up, asked about other transport, drug abuse social worker said it would be private pay at 55 dollars base pay plus 4.25 per mile to [place], This was passed onto Aunt Thelma, Arrangements were made and Uncle will be here to pick pt up at [facility] at 5:00 Plan of Care - Tahmina Vick RN - 03/06/2016 2:02 PM CDT Problem: Goal Outcome Summary Goal: Goal Outcome Summary Outcome: Improving Pt will be discharge today, This nurse did call Aunt and discuss discharge with her, Also called [facility] set up transportation, Awaiting call back from [facility] Plan of Care - Daniela Holland RN [...] related to surg/dx: 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 Vitals stable. Flat affect. Excellent appetite. Incisions CDI. Utilization Review - Graham Romero DO - 03/05/2016 2:56 PM CDT [facility] Admission Status; Secondary Review Determination Admission Date: [...] Romero DO MPH Physician Advisor Utilization Management [facility]. Plan of Care - Tahmina Vick RN - 03/05/2016 2:30 PM CDT Problem: Goal Outcome Summary Goal: Goal Outcome Summary Outcome: No Change Pt with flat affect, quiet unless asked questions, good appetite, asking for more food often, deniespain, up with stand by assist in halls, Brief Op Note - Aashish Witt MD - 03/05/2016 10:27 AM CDT [facility] Brief Operative Note Pre-operative diagnosis: END STAGE [...] bypass dialysis graft. SURGEON: Rober Saravia MD DELIVERY NURSE: AASHISH WITT MD, ([facility] surgery resident) ANESTHESIA: General - LMA. PREOPERATIVE MEDICATIONS: Ancef 2 grams IV. 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 He is presently dialyzing [...] general anesthesia and LMA was placed. Left hxwsv-iovvk-mwy were prepped and draped in the usual [...] MT: [id number] Name: JULIO CESAR SANDHU Account: [id number] : 1965 Procedure Date: 03/05/2016 Document: [id number] cc: [facility] D[facility] [place] Saravia MD documented in this encounter Plan [...] 4:16 CDT PM CDT Rober Saravia MD [facility] POCT Performing Organization Address City/State/ZIP Code Phon e Number FV POINT OF CARE TEST, GLUCOSE POINT OF CARE TEST, GLUCOSE (ABNORMAL) CBC with platelets (03/06/2016 7:23 AM CDT) Analysis Performed At Patho logist Time Signature WBC 7.1 4.0 - 11.0 [facility] 10e9/L [facility] RBC Count 4.18 (L) 4.4 - 5.9 [facility] 10e12/L [facility] Hemoglobin 10.8 (L) 13.3 - [facility] 17.7 g/dL [facility] Hematocrit 34.6 (L) 40.0 - [facility] 53.0 % [facility] MCV 83 78 - 100 [facility] fl [facility] MCH 25.8 (L) 26.5 - [place] 33.0 pg [facility] MCHC 31.2 (L) 31.5 - [place] 36.5 g/dL [facility] RDW 17.1 (H) 10.0 - [place] 15.0 % [facility] Platelet Count 110 (L) 150 - 450 [place] 10e9/L [facility] Specimen Anatomical Collection Method Collection Time Receive d Time (Source) Location / / Volume Laterality Blood specimen 03/06/2016 7:23 AM 016 7:28 (specimen) CDT AM CDT Chi Brunson MD LAB - BLOOD ORDERABLES Performing Organization Address City/State/ZIP Code Phon e Number M [facility] [address] [phone] [facility] [address] [address], [facility] [phone] (ABNORMAL) Basic metabolic panel (03/06/2016 7:23 AM CDT) [facility] gist Method Time Signature Sodium 134 133 - 144 [place] mmol/L [facility] Potassium 4.0 3.4 - 5.3 [place] mmol/L [facility] Chloride 98 94 - 109 [place] mmol/L [facility] Carbon Dioxide 24 20 - 32 [place] mmol/L [facility] Anion Gap 12 3 - 14 [place] mmol/L [facility] Glucose 106 (H) 70 - 99 [place] mg/dL [facility] Urea Nitrogen 51 (H) 7 - 30 [place] mg/dL [facility] Creatinine 11.00 (H) 0.66 - [place] 1.25 mg/dL [facility] GFR Estimate 5 (L) >60 [place] mL/min/1.[address] Comment: Non GFR Calc GFR Estimate If Black 6 (L) >60 mL/min/1.7m2 F [facility] Comment: GFR Calc Calcium 8.3 (L) 8.5 - 10.1 mg/dL [facility] Specimen Anatomical Collection Method Collection Time Receive d Time (Source) Location / / Volume Laterality Blood specimen 03/06/2016 7:23 AM 016 7:28 (specimen) CDT AM CDT Aashish Witt MD LAB - BLOOD ORDERABLES Performing Organization Address City/State/ZIP Code Phon e Number M [facility] [address] [place] [address] [phone] [facility] [address] [place] [address], [place] [phone] (ABNORMAL) Glucose by meter (03/06/2016 6:06 AM [...] Glucose by meter (03/05/2016 10:37 AM CDT) P athologist Signature Glucose 73 70 - 99 [...] GLUCOSE (ABNORMAL) Hemoglobin (03/05/2016 6:40 AM CDT) P athologist Signature Hemoglobin 10.9 (L) 13.3 - 17.7 [facility] g/dL [facility] Specimen Anatomical Collection Method Collection Time Receive d Time (Source) Location / / Volume Laterality Blood specimen 03/05/2016 6:40 AM 016 6:56 (specimen) CDT AM CDT Rober Saravia MD LAB - BLOOD ORDERABLES Performing Organization Address City/State/ZIP Code Phon e Number M [facility] [address] [phone] [facility] [address] [address], [place] [phone] (ABNORMAL) INR (03/05/2016 6:40 AM CDT) P athologist Signature INR 1.81 (H) 0.86 - 1.14 [facility] Specimen Anatomical Collection Method Collection Time Receive d Time (Source) Location / / Volume Laterality Blood specimen 03/05/2016 6:40 AM 016 6:56 (specimen) CDT AM CDT Rober Saravia MD LAB - BLOOD ORDERABLES Performing Organization Address City/State/ZIP Code Phon e Number M [facility] [address] [address] [facility] [address] [address], [place] [phone] (ABNORMAL) Basic metabolic panel (03/05/2016 6:40 AM CDT) Analysis Performed At Patho logist Time Signature Sodium 137 133 - 144 [place] mmol/L [facility] Potassium 3.3 (L) 3.4 - 5.3 [place] mmol/L [facility] Chloride 99 94 - 109 [place] mmol/L [facility] Carbon Dioxide 25 20 - 32 [place] mmol/L [facility] Anion Gap 13 3 - 14 [place] mmol/L [facility] Glucose 81 70 - 99 [place] mg/dL [facility] Urea Nitrogen 35 (H) 7 - 30 [place] mg/dL [facility] Creatinine 8.67 (H) 0.66 - [facility] 1.25 mg/dL [facility] GFR Estimate 6 (L) >60 [place] mL/min/1.[address] Comment: Non GFR Calc GFR Estimate If Black 8 (L) >60 mL/min/1.7m2 F [facility] Comment: GFR Calc Calcium 8.7 8.5 - 10.1 mg/dL [facility] Specimen Anatomical Collection Method Collection Time Receive d Time (Source) Location / / Volume Laterality Blood specimen 03/05/2016 6:40 AM 016 6:56 (specimen) CDT AM CDT Rober Saravia MD LAB - BLOOD ORDERABLES Performing Organization Address City/State/ZIP Code Phon e Number M [facility] [address] [place] [address] [facility] [address] [place] [address], [place] [phone] LAB RESULT - HIM SCAN (03/02/2016 12:00 [...] ORDERABLES documented in this encounter Visit Diagnoses Not [...] Tue03/05/16 at 0630, Until Tue03/05/16 at 1029 250mL NaCl/2,500 Units Given 03/05/2016 8:24 AM 250 mLs Operative Site/Surgical heparin CDT Site PRN, Starting on Tue03/05/16 at 0824, Intra-procedure acetaminophen (TYLENOL) tablet 650 mg Given 03/06/2016 [...] 1415, DO NOT CRUSH. On Non-Dialysis days bupivacaine (MARCAINE) Given 03/05/2016 10:10 AM 20 mLs Operative Site/Surgical injection 0.5% CDT Site PRN, Starting on Tue03/05/16 at 1010, Intra-procedure calcium acetate (PHOSLO) capsule 1,334 m [...] DAILY, First dose on Tue03/05/16 at 1215 heparin 10,000 units in Given 03/05/2016 8:25 AM 20,000 Units Other (see 500 mL 0.9% NaCl CDT comments) PRN, Starting on Tue03/05/16 at 0825, Intra-procedure lisinopril (PRINIVIL,ZESTRIL) tablet 40 mg Given 03/06/2016 [...] (CANCELED) 1537 (Given - Provider: Tahmina Vick, LINDA)1805 (Given - Provider: Tahmina Vick, LINDA) 0959 (Not Given - Provider: Tahmina Vick RN - Reason: Patient not available - Comment: dialysis)1300 (Given - Provider: Tahmina Vick, LINDA) 1,334 mg, Oral, 3 TIMES DAILY WITH MEALS, First dose on 03/05 at 1215 CeFAZolin Sodium-Dextrose (ANCEF) intermittent infusion 2 g (COMPLETED) 0722 (Handoff - Provider: Angie Sy, LINDA)0745 (Given - Provider: Rose Marie Dean APRN [...] mg (CANCELED) 2114 (Given - Provider: Daniela Holland RN) 40 mg, Oral, EVERY EVENING, First dose on Tue03/05/16 at 2000 sodium chloride (PF) 0.9% PF flush 3 mL (CANCELED) 1324 (Not Given - Provider: Tahmina Vick RN - Reason: IV Infusing)2115 (Given - Provider: Daniela Holland RN) 0515 (Canceled Entry - Provider: Daniela Holland RN)1000 (Canceled Entry - Provider: Tahmina Vick RN)1300 (Not Given - Provider: Tahmina Vick RN - Reason: Loss of IV access) 3 mL, Intravenous, EVERY 8 HOURS, First dose on Tue03/05/16 at 1215, to lock peripheral IV dormant line. Also Ordered Q1H PRN, Post-procedure vitamin B complex with vitamin C (STRESS TAB) tablet 1 table t (CANCELED) 2114 (Given - Provider: Daniela Holland RN) 1 tablet, Oral, EVERY EVENING, First dose on Tue03/05/16 at 2000 warfarin (COUMADIN) tablet 5 mg (COMPLETED) 1805 (Given - Provider: Tahmina Vick RN) 5 mg, Oral, ONCE AT 6PM, Tue03/05/16 at 1800, For 1 dose Continuous Medication Order 03/04/2016 03/05/2016 03/06/2016 0.9% sodium chloride infusion (CANCELED) 0722 (New Bag - Provider: Angie Sy RN)0733 (Anesthesia Volume Adjustment - Provider: Rose Marie Dean APRN SUPERINTENDENT STEVEDORING)0922 (Anesthesia Volume Adjustment - Provider: Rose Marie Dean APRN SUPERINTENDENT STEVEDORING)1034 (Stopped - Provider: Rose Marie Dean APRN CRNA) at 10 mL/hr, Intravenous, CONTINUOUS, IF patient on dialysis., Pre-procedure, Starting Tue03/05/16 at 0630, Until Tue03/05/16 at 1029 PRN Medication Order 03/04/2016 03/05/2016 03/06/2016 250mL NaCl/2,500 Units heparin (CANCELED) 0824 (Given - Provider: Rober Saravia MD - Comment: irrigation) PRN, Starting Tue03/05/16 at 0824, Intra-procedure acetaminophen (TYLENOL) tablet 650 mg (CANCELED) 1537 (Given - Provider: Tahmina Vick RN) 1644 (Given - Provider: Tahmina Vick RN) 650 mg, Oral, EVERY 6 HOURS [...] Intra-procedure documented in this encounter Care Teams Oracle Applications Analyst Relationship Specialty Start Date End Date Preet Huff PCP - General 06/24/11 documented as of this encounter
--- OUTSIDE RECORDS SUMMARY | 2022-09-01 20:15 | XMS_ITS | Encounter Summary ---
:1965 Author Organization [place] Address [address] [facility] [place] [address] Care Team Providers Name Role Phone Preet Huff Primary Care Provider Reason for Visit Reason Onset Date Comments Nurse Advice Line 12/30/2015 Encounter Details Date Type Department Care Team Description 12/30/[address] [facility] Jaxon Saravia Nurse Ad vice Line [facility] Mk Oviedo MD [address] [phone] [address] [place] [id number] (Wo rk) Social History Tobacco Use Types Packs/Day Years Used Date Smoking Tobacco: Never Smokeless Tobacco: Never Alcohol Use Standard Drinks/Week Comments No 0 (1 standard drink = 0.6 oz pure alcoho l) Sex Assigned at Date Recorded Not on file documented as of this encounter Miscellaneous Notes Telephone Encounter - Janell Edgar RN - 12/30/2015 3:06 PM CDT Rocio MCKEONsolution design and analysis manager for pt called inquiring about which dressings should be applied to pt wound,RN spoke with Dr. Saravia who notes to utilize saline moistened gauze on wound. RN call to Rocio at [phone], discussed with Rocio Chan notes understanding. Janell Edgar RN BSN documented in this encounter Plan of Treatment Not on filedocumented as of this encounter Visit Diagnoses Not on filedocumented in this encounter Care Teams Collection Card Clerk Relationship Specialty Start Date End Date Preet Huff PCP - General 06/24/11 documented as of this encounter
--- OUTSIDE RECORDS SUMMARY | 2022-09-01 20:15 | XMS_ITS | Encounter Summary ---
:1965 Author Organization [place] Address [address] [facility] [address] Care Team Providers Name Role Phone Preet Huff Primary Care Provider Reason for Visit Reason Comments RECHECK wound check Encounter Details Date Type Department Care Team Description 01/15/2016 Office Visit [facility] Jaxon Saravia Thigh ul cer, left, Vascular Clinic Mk Oviedo MD with fat layer exposed [address] ) (Primary Dx) [id number] [place] [phone] [place] [id number] Social History Tobacco Use Types Packs/Day Years Used Date Smoking Tobacco: Never Smokeless Tobacco: Never Alcohol Use Standard Drinks/Week Comments No 0 (1 standard drink = 0.6 oz pure alcoho l) Sex Assigned at Date Recorded Not on file documented as of this encounter Last Filed Vital Signs Vital Sign Reading Time Taken Comments Blood Pressure 149/77 01/15/2016 2:28 PM CDT lt Pulse 66 01/15/2016 2:28 PM CDT Temperature - - Respiratory Rate - - Oxygen Saturation 100% 01/15/2016 2:28 PM CDT Inhaled Oxygen Concentration - - Weight - - Height - - Body Mass Index - - documented in this encounter Progress Notes Jaxon Saravia MD - 01/15/2016 2:58 PM CDT Herminio Victor Was sent to see us again in the office. I saw him last week in the emergency department for debridement of his left proximal medial thigh ulcer. He had an infected dialysis access graft that required excision leaving the proximal medial portion of wound open to heal by secondary intent. It was a small area at the 6:00 position which had healed over last week. He is dialyzing via right femoral catheter with no difficulty at the [place] unit. Home health care has been seen three times weekly for dressing changes. They've noticed a small amount of pseudomonas overgrowth in the wound and been applying hydrogen peroxide and gauze dressings. Patient denies any complaints or pain. Exam: At his mental status baseline. He appears very comfortable. Vital signs stable. Chest= clear Dressings removed from the left groin. There is a small amount of greenish discharge from the woundconsistent with pseudomonas on the dressing and minimal on the sloughover the ulcer The wound is continuing to decrease in size and now measures approximately 12 cm in length and 2 cmin maximum width. It is hyper granulation tissue noted. Edges are unremarkable. No distal thigh swelling. Procedure: Verbal consent was obtained from the patient. No anesthetic was required. Using a 15 blade scalpel full-thickness/subcutaneous excisional debridement was performed removing all slough and fibrin and debriding the skin edges. The hyper granulation tissue was trimmed flush with the skin with e xcellent bleeding and no undermining. Dressings were reapplied. Less than 20 cm?? debrided. Impression: Continued improvement of left thigh open ulcer. This will need to heal by secondary intent. We will go to a Silvadene on the wound and a gauze dressing to be changed with home health care three times weekly. We will see him back in 2-3 weeks for reevaluation. Once the wound is completely healed over we will place a new dialysis access in his mid thigh region with recent arterial and venous evaluation revealing no problems with the vessels at this level. Jaxon Saravia MD Please route or send letter to: *None* documented in this encounter Nursing Notes Andria Irizarry - 01/15/2016 2:25 PM CDT Chief Complaint Patient presents with ??? RECHECK Initial There were no vitals taken for this visit. Estimated body mass index is 35.40 kg/(m^2) as calculated from the following: Height as of 12/16/15: 5' 4 (1.626 m). Weight as of 12/16/15: 206 lb 5.6 oz (93.6 kg). BP completed using cuff size: regular Ebola Screen Negative Face to face nursing time 5 Andria Irizarry, INSPECTOR HAIRSPRING, AAS documented in this encounter Plan of Treatment Not on filedocumented as of this encounter Procedures Procedure Name Priority Date/Time Associated Diagnosis Comme nts HC DEBRIDEMENT WOUND UP Routine 01/15/2016 3:03 PM Thigh ulcer , left, TO 20 SQ CM CDT with fat layer exposed (H) documented in this encounter Visit Diagnoses Diagnosis Thigh ulcer, left, with fat layer expose d (H) - Primary documented in this encounter Care Teams Roll Edge Machine Operator Relationship Specialty Start Date End Date Preet Huff PCP - General 06/24/11 documented as of this encounter
--- OUTSIDE RECORDS SUMMARY | 2022-09-01 20:15 | XMS_ITS | Encounter Summary ---
:1965 Author Organization [place] Address [address] [facility] [place] [place] [address] Care Team Providers Name Role Phone Preet Huff Primary Care Provider Reason for Visit Reason Comments RECHECK R thigh ulcer wound Encounter Details Date Type Department Care Team Description 02/26/2016 Office Visit [facility] Jaxon Saravia ESRD (en d stage renal [facility] [place] MD disease) on dialysis [address] (H ) (Primary Dx) [id number] [place] [id number] [place] [id number] Social History Tobacco Use Types Packs/Day Years Used Date Smoking Tobacco: Never Smokeless Tobacco: Never Alcohol Use Standard Drinks/Week Comments No 0 (1 standard drink = 0.6 oz pure alcoho l) Sex Assigned at Date Recorded Not on file documented as of this encounter Last Filed Vital Signs Vital Sign Reading Time Taken Comments Blood Pressure 136/77 02/26/2016 1:10 PM CDT Pulse 72 02/26/2016 1:10 PM CDT Temperature - - Respiratory Rate - - Oxygen Saturation - - Inhaled Oxygen Concentration - - Weight - - Height - - Body Mass Index - - documented in this encounter Progress Notes Jaxon Saravia MD - 02/26/2016 1:22 PM CDT Herminio Victor And his mother return to see us in the office today. He is on chronic dialysis via right femoral catheter at the [facility] unit. We revised a left loop PTFE graft due to theaneurysms with a ProCol graft. 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 He had a worsening infection and the majority of the graft was removed. We've been allowing the groin wound heal by secondary intent prior to considering another access in his left thigh ( recent duplex revealed a widely patent superficial femoral artery and vein). PMH: Medications: Coumadin, Zocor, metoprolol, lisinopril, Phoslo, Norvasc, Nephrocaps Nonsmoker. Developmentally challenged. Exam: Appropriate. Blood pressure 136/77 pulse 72 regular Chest= clear Cardiovascular=RR Essentially healed left groin incision with an opening measuring less than 0.2 x 0.2 cm with healthy granulation tissue. One can still palpate the tract where the graft had been placed and removed. No evidence of ongoing groin infection. Right tunneled catheter is functioning well in the right groin. No distal edema in either leg. +3 palpable dorsalis pedis pulses bilaterally. Impression: Essentially healed the left groin site following removal of infected Procol and PTFE graft. The groin area itself is too scarred in for repeat surgery. We therefore plan to place a mid thigh SFA/SFV based Procol graft. This was performed under general anesthetic with an overnight observational stay In the hospital. We will hold his Coumadin for three days prior to the procedure. This willbe discussed with Herminio and his mother. Jaxon Saravia MD Please route or send letter to: Primary Care Provider (PCP) [facility] dialysis HPI ROS Physical Exam documented in this encounter Nursing Notes Matteokatlyn Bárbara - 02/26/2016 1:10 PM CDT Chief Complaint Patient presents with ??? RECHECK R thigh ulcer wound Initial BP 136/77 mmHg Pulse 72 Estimated body mass index is 35.40 kg/(m^2) as calculated from thefollowing: Height as of 12/16/15: 5' 4 (1.626 m). Weight as of 12/16/15: 206 lb 5.6 oz (93.6 kg). BP completed using cuff size: large Face to face time: 10 minutes Bárbara Burton CMA documented in this encounter Plan of Treatment Not on filedocumented as of this encounter Visit Diagnoses Diagnosis ESRD (end stage renal disease) on dialys is (H) - Primary End stage renal disease documented in this encounter Care Teams Industrial Economist Relationship Specialty Start Date End Date Preet Huff PCP - General 06/24/11 documented as of this encounter
--- OUTSIDE RECORDS SUMMARY | 2022-09-01 20:15 | XMS_ITS | Encounter Summary ---
:1965 Author Organization [place] Address [address] [facility] [place] [address] Care Team Providers Name Role Phone Preet Huff Primary Care Provider Reason for Visit Reason Onset Date Comments Nurse Advice Line 01/08/2016 Encounter Details Date Type Department Care Team Description 01/08/2016 Telephone [facility]ascular Janell Edgar RN Nurse Advice Line [address] [phone] Social History Tobacco Use Types Packs/Day Years Used Date Smoking Tobacco: Never Smokeless Tobacco: Never Alcohol Use Standard Drinks/Week Comments No 0 (1 standard drink = 0.6 oz pure alcoho l) Sex Assigned at Date Recorded Not on file documented as of this encounter Miscellaneous Notes Telephone Encounter - Janell Edgar RN - 01/08/2016 1:11 PM CDT Pt arrived via ER admit. *mao Telephone Encounter - Janell Edgar RN - 01/08/2016 9:57 AM CDT Rocio from [facility] called to note pts caregiver/aunt is in the hospital and will not beable to do the dressing changes on [id number]. Questioning what Dr. Saravia would like to have done with wound cares the days home care not there. Home care visits are on M-W-F only. Notes pt has another family caregiver name Aron, however Rocio unsure if Aron is able to appropriately receive education on how to do dressing changes. Rocio called out to pts mother in attempts to reach Aron, left voice mail message, notes has been difficult to reach. Rocio notes large wound still has serous brown drainage and small poke hole wound has slight serous brown drainage with no odor *lela. RN called out to pts mother Arianna, left voice message. *lela documented in this encounter Plan of Treatment Not on filedocumented as of this encounter Visit Diagnoses Not on filedocumented in this encounter Care Teams Assistant Research Scientist Relationship Specialty Start Date End Date Preet Huff PCP - General 06/24/11 documented as of this encounter
--- OUTSIDE RECORDS SUMMARY | 2022-09-01 20:15 | XMS_ITS | Encounter Summary ---
:1965 Author Organization [place] Address [address] [facility] [place] [address] Care Team Providers Name Role Phone HuffPreet cool Primary Care Provider Encounter Details Date Type Department Care Team Description 04/02/2016 Orders Only [facility] Jaxon Saravia ESRD (en d stage renal [facility] Mk [place] MD disease) (H) (Primary [address] Dx ) [id number] [place] [phone] [place] [id number] Social History Tobacco Use Types Packs/Day Years [...] ESRD (end stage renal disease) (H) - [facility] End stage renal disease ESRD (end stage renal disease) (H) End stage renal disease documented in this encounter Care Teams Certified Master Locksmith Relationship Specialty Start Date End Date Preet Huff PCP - General 06/24/11 documented as of this encounter
--- OUTSIDE RECORDS SUMMARY | 2022-09-01 20:15 | XMS_ITS | Encounter Summary ---
:1965 Author Organization [place] Address [address] [facility] [place] [place] [address] Care Team Providers Name Role Phone Preet Huff Primary Care Provider Encounter Details Date Type Department Care Team Description 05/12/2016 Hospital Encounter [facility] Jaxon Saravia stage renal [facility] Preet disease (H) [address] [place] [phone] Social History Tobacco Use Types Packs/Day Years Used Date Smoking Tobacco: Never Smokeless Tobacco: Never Alcohol Use Standard Drinks/Week Comments No 0 (1 standard drink = 0.6 oz pure alcoho l) Sex Assigned at Date Recorded Not on file documented as of this encounter Last Filed Vital Signs Vital Sign Reading Time Taken Comments Blood Pressure 166/72 05/12/2016 6:15 PM CDT Pulse 60 05/12/2016 3:30 PM CDT Temperature 36.3 ??C (97.3 ??F) 05/12/2016 10:40 AM CDT Respiratory Rate 18 05/12/2016 5:45 PM CDT Oxygen Saturation 100% 05/12/2016 5:30 PM CDT Inhaled Oxygen Concentration - - [...] documented as of this encounter Progress Notes Isis Lindsay RN - 05/12/2016 6:25 PM CDT Patient left leg fistula site CDI without bleeding or hematoma. Denies pain, tolerates PO, and BP now under 174 systolically after IV hydralazine and 200 mg metoprolol PO given. Patient has discharge instructions and waiting for transport to [place]. Monitor Suze Underwood RN - 05/12/2016 4:56 PM CDT 1545- Arterial Site on fistula site needs pressure to be held by IR Toppr JOSY. 1630- Sutured in room by Dr Fuentes and bleeding stopped. BP High and Hydralazine ordered and give. 1640- I spoke with Dr Her about patients BP. Orders received. More hydralazine given. 1700- Patient is eating lunch. Mother here. Left thigh fistula site is not bleeding or swelling. 1720- Third dose of Hydralazine given IV. Dr Fuentes consulted and we will give him his HS dose of metoprolol po. Jae Walden RN - 05/12/2016 1:41 PM CDT Interventional Radiology Intra-procedural Nursing Note Patient Name: Herminio Victor Today's Date: May 12, 2016 Start Time: 5 End of procedure time: 1452 Procedure: fistulagram left leg with possible revascularization Report given to: care suites Time pt departs: 1500 Fire risk: 0-1 1320: patient transported to IR1 from care suites. Positioned supine on procedure table. Prepped anddraped per protocol. 1452: EOC. Patient tolerated well. VSS. Other Notes: Sheaths left in place. To be pulled by tech in care suites. Jae Walden Yasemin Solis RN - 05/12/2016 11:27 AM CDT Patient arrived ambulatory, with his mother, who is not his driver's license reviewing officer, but said [facility] will transport afterwards. I will obtain med intake and find out about his ride home after procedure. His aunt Thelma gibbonsis caregiver, and she knows about his meds, he thinks. [phone] I contacted patient's caregiver, Thelma, for his PIGGERY WORKER med list. She said he did have dialysis yesterday, using the R femoral tunnel cath. He has a fluid restriction, and she said to give him a small glass of juice with his lunch. She said he has had no further problems since the staph infection earlier this year. [id number] Patient returned from IR, s/p successful declot of L femoral shunt. IR staff holding pressure. 1530 Report to Portia Kelly RN. documented in this encounter Plan of Treatment Not on filedocumented as of this encounter Procedures Procedure Name Priority Date/Time Associated Comments Diagnosis IR DIALYSIS Routine 05/12/2016 3:17 PM End stage renal Result s for this FISTULOGRAM LEFT CDT disease (H) procedure a re in the results section. GLUCOSE BY METER Routine 05/12/2016 10:50 End stage renal Resu lts for this AM CDT disease (H) procedure are i n the results section. documented in this encounter Results IR Dialysis Fistulogram Left (05/12/2016 3:17 PM CDT) Anatomical Region Laterality Modality Upper Extremity Radio Fluoroscopy Specimen (Source) Anatomical Location Collection Method / Collectio n Time Received Time / Laterality Volume Impressions 05/14/2016 10:37 AM CDT IMPRESSION: Left leg dialysis fistula declot performed as above. There was a stenosis at the venous anastomosis of the graft which likely contributed to graft thrombosis. This wa s successfully angioplastied. There remain some filling defects near t he venous anastomosis, likely representing organized thrombus. This wa s refractory to treatment with mechanical thrombectomy. On the final an giogram, this did not appear to be significantly limiting flow. The p atient will be continued on anticoagulation. Recommend followup ultr asound of the fistula in 2 weeks. MICHELE FUENTES MD Narrative 05/14/2016 10:37 AM CDT INTERVENTIONAL RADIOLOGY DIALYSIS FISTULOGRAM LEFT ??05/12/2016 3:17 PM HISTORY: ??Patient has a thrombosed left above-knee popliteal artery to superficial femoral vein ProCol dialysis graft. COMPARISON: None. DESCRIPTION OF PROCEDURE: After obtainin g informed consent, the patient was placed in a supine position on the fluoroscopy table. The left thigh was prepped and draped in the usual sterile manner. 1% lidocaine was injected for local anesthe burke. Preliminary ultrasound showed the thrombosed left above-knee po pliteal artery to superficial femoral vein dialysis graft. Access was obtained in the graft at two points. An axis in the proximal thigh wa s directed towards the arterial anastomosis. An access in the d istal thigh was directed towards the venous anastomosis. 6 Hebrew vascular sheaths were placed. An nnfz-ven-deey wedge balloon was maneu marry into the inflow popliteal artery. A fistulogram was perf ormed. FINDINGS: The graft was completely occlu ded. There was an aneurysmal portion of the graft just past the arter ial anastomosis. INTERVENTION: The wedge balloon was used to occlude the arterial end of the graft. 6 mg TPA was injected into the graft. The TPA was left to dwell in for 15 minutes. Mechanical t hrombectomy was then performed within the graft using a cleaner signs device followed by an AngioJet device. A stenosis at the venous anastom osis was revealed. This was dilated with a 7 mm high-pressure balloo n followed by a 7 mm drug-coated balloon followed by an 8 mm high pressure balloon. Followup angiogram showed improvement in diameter with persistent wall-adherent thrombus. This was further cleared with wedge balloon. A narrowing within the graft near the kelsey rial end was also dilated with a 7 mm balloon. The wedge balloon was us ed to clear further thrombus detected within the graft. Following these maneuvers, the graft was noted to be patent without significant stenoses. The central veins were followed to the inferior vena cava and found to be patent without significant stenoses. The vascular sheaths were then removed. Pressure was held at the puncture sites for 10 minutes with good hemostasis. The sheath near the arterial anastomosis was also closed with a pursestring suture due to persistent oozing. The patient tolerated the procedure well . There were no immediate postprocedure complications. The patient 's vital signs were monitored by radiology nursing staff under my supe rvision and remained stable throughout the study. Medications: TPA 6 mg, Versed 2 mg, fent anyl 100 mcg, Ancef 2 g Sedation time: 77 minutes Fluoroscopy time: 265.75 mGy Contrast: 110 mL Isovue-300 Procedure Note Michele Fuentes MD - 05/14/2016F ormatting of this note might be different from the original. INTERVENTIONAL RADIOLOGY DIALYSIS FISTUL OGRAM LEFT 05/12/2016 3:17 PM HISTORY: Patient has a thrombosed left a kai-knee popliteal artery to superficial femoral vein ProCol dialysis graft. COMPARISON: None. DESCRIPTION OF PROCEDURE: After obtainin g informed consent, the patient was placed in a supine position on the fluoroscopy table. The left thigh was prepped and draped in the usual sterile manner. 1% lidocaine was injected for local anesthe burke. Preliminary ultrasound showed the thrombosed left above-knee po pliteal artery to superficial femoral vein dialysis graft. Access was obtained in the graft at two points. An axis in the proximal thigh wa s directed towards the arterial anastomosis. An access in the d istal thigh was directed towards the venous anastomosis. 6 Hebrew vascular sheaths were placed. An gybz-xzo-mgjd wedge balloon was maneu marry into the inflow popliteal artery. A fistulogram was perf ormed. FINDINGS: The graft was completely occlu ded. There was an aneurysmal portion of the graft just past the arter ial anastomosis. INTERVENTION: The wedge balloon was used to occlude the arterial end of the graft. 6 mg TPA was injected into the graft. The TPA was left to dwell in for 15 minutes. Mechanical t hrombectomy was then performed within the graft using a cleaner signs device followed by an AngioJet device. A stenosis at the venous anastom osis was revealed. This was dilated with a 7 mm high-pressure balloo n followed by a 7 mm drug-coated balloon followed by an 8 mm high pressure balloon. Followup angiogram showed improvement in diameter with persistent wall-adherent thrombus. This was further cleared with wedge balloon. A narrowing within the graft near the kelsey rial end was also dilated with a 7 mm balloon. The wedge balloon was us ed to clear further thrombus detected within the graft. Following these maneuvers, the graft was noted to be patent without significant stenoses. The central veins were followed to the inferior vena cava and found to be patent without significant stenoses. The vascular sheaths were then removed. Pressure was held at the puncture sites for 10 minutes with good hemostasis. The sheath near the arterial anastomosis was also closed with a pursestring suture due to persistent oozing. The patient tolerated the procedure well . There were no immediate postprocedure complications. The patient 's vital signs were monitored by radiology nursing staff under my supe rvision and remained stable throughout the study. Medications: TPA 6 mg, Versed 2 mg, fent anyl 100 mcg, Ancef 2 g Sedation time: 77 minutes Fluoroscopy time: 265.75 mGy Contrast: 110 mL Isovue-300 IMPRESSION: Left leg dialysis fistula de clot performed as above. There was a stenosis at the venous anastomosis of the graft which likely contributed to graft thrombosis. This wa s successfully angioplastied. There remain some filling defects near t he venous anastomosis, likely representing organized thrombus. This wa s refractory to treatment with mechanical thrombectomy. On the final an giogram, this did not appear to be significantly limiting flow. The p atient will be continued on anticoagulation. Recommend followup ultr asound of the fistula in 2 weeks. MICHELE FUENTES MD Jaxon Saravia MD IMG IR ORDERABLES Glucose by meter (05/12/2016 10:50 AM CDT) P athologist Signature Glucose 75 70 - 99 POINT OF CARE mg/dL TEST, GLUCOSE Specimen Anatomical Collection Method Collection Time Receive d Time (Source) Location / / Volume Laterality 05/12/2016 10:50 05/12/2016 AM CDT 10:55 AM CDT Jaxon Saravia MD [facility] POCT Performing Organization Address City/State/ZIP Code Phon e Number FV POINT OF CARE TEST, GLUCOSE POINT OF CARE TEST, GLUCOSE documented in this encounter Visit Diagnoses Diagnosis End stage renal disease (H) End stage renal disease documented in this encounter Administered Medications Inactive Administered Medications - up to 3 most recent administrations Medication Order MAR Action Action Date Dose Rate Site alteplase (CATHFLO ACTIVASE) Given by Other 05/12/2016 1:45 PM CDT 6 mg injection 2-22 mg 2-22 mg, Intravenous, ONCE PRN, when verbally ordered by prescriber during the procedure, Starting on Tue05/12/16 at 1254, For 1 dose, Prescriber will administer dose, IR Intra-procedure ceFAZolin (ANCEF) 1 g vial to attach to NS 100 New Bag 0 05/12/2016 1:39 PM CDT 1 g ml bag for ADULT or 50 ml bag for PEDS Routine, 1 g, Intravenous, ONCE, On Tue05/12/16 at 1345, For 1 dose, Indications: Perioperative Pharmacoprophylaxis, IR Intra-procedure fentaNYL Citrate (PF) (SUBLIMAZE) injection Given 05/12/2016 2:30 PM CDT 50 mcg 25-50 mcg 25-50 mcg, Intravenous, EVERY 5 MIN PRN, severe pain (7-10), If inadequate response may repeat 25 mcg IV slowly Q 5 min PRN severe pain, Administer over 2 Minutes, Starting on Tue05/12/16 at 1233, Doses can be exceeded under direct oversight of patient by physician., IR Intra-procedure Given 05/12/2016 1:37 PM CDT 50 mcg hydrALAZINE (APRESOLINE) injection 10 mg Given 05/12/2016 5:11 PM CDT 10 mg 10 mg, Intravenous, ONCE PRN, high blood pressure, Starting on Tue05/12/16 at 1655, For 1 dose, May be given 15 minutes after the 1640 dose of hydralazine if the BP is greater that 175 systolic. hydrALAZINE (APRESOLINE) injection 5 mg Given 05/12/2016 4:13 PM CDT 5 mg 5 mg, Intravenous, ONCE, On Tue05/12/16 at 1615, For 1 dose hydrALAZINE (APRESOLINE) injection 5 mg Given 05/12/2016 4:43 PM CDT 5 mg, Intravenous, ONCE, On Tue05/12/16 at 1645, For 1 dose metoprolol (LOPRESSOR) tablet 200 mg Given 05/12/2016 5:31 PM CDT 200 mg 200 mg, Oral, ONCE, On Tue05/12/16 at 1730, For 1 dose, This is patients evening dose midazolam (VERSED) injection 0.5-1 mg Given 05/12/2016 2:30 PM CDT 1 mg 0.5-1 mg, Intravenous, Administer over 1 Minutes, EVERY 4 MIN PRN, sedation, If inadequate response may repeat 0.5 mg IV slowly Q 4 minutes PRN sedation until desired response., Starting on Tue05/12/16 at 1233, Doses can be exceeded under direct oversight of patient by physician., IR Intra-procedure Given 05/12/2016 1:37 PM CDT 1 mg sodium chloride (PF) 0.9% PF flush 3 mL Given 05/12/2016 11:06 AM CDT 3 mLs 3 mL, Intracatheter, EVERY 8 HOURS, First dose on Tue05/12/16 at 1045, And Q1H PRN, to lock peripheral IV dormant line., IR Pre-procedure documented in this encounter Active and Recently Administered Medications Times are shown in CDT. Scheduled Medication Order 05/10/2016 05/11/2016 05/12/2016 ceFAZolin (ANCEF) 1 g vial to attach to NS 100 ml bag for ADULT or 50 ml bag for PEDS (COMPLETED) 1339 (New Bag - Prov ider: Jae Walden RN) 1 g, Intravenous, ONCE, Tue05/12/16 at 13 45, For 1 dose, Indications: Surgical Prophylaxis, IR Intra-procedure hydrALAZINE (APRESOLINE) injection 5 mg (COMPLETED) 1613 (Given - Provider: Suze Underwood RN) 5 mg, Intravenous, ONCE, Tue05/12/16 at 1615, For 1 dose hydrALAZINE (APRESOLINE) injection 5 mg (COMPLETED) 1643 (Given - Provider: Suze Underwood RN) 5 mg, Intravenous, ONCE, Tue05/12/16 at 1645, For 1 dose metoprolol (LOPRESSOR) tablet 200 mg (COMPLETED) 1731 (Given - Provider: Isis Lindsay RN) 200 mg, Oral, ONCE, On Tue05/12/16 at 173 0, For 1 dose, This is patients evening dose sodium chloride (PF) 0.9% PF flush 3 mL (CANCELED) 1106 (Given - Provider: Yasemin Solis RN) 3 mL, Intracatheter, EVERY 8 HOURS, Firs t dose on Tue05/12/16 at 1045, And Q1H PRN, to lock peripheral IV dormant line., IR Pre-procedure PRN Medication Order 05/10/2016 05/11/2016 05/12/2016 alteplase (CATHFLO ACTIVASE) injection 2-22 mg (COMPLETED) 1345 (Given by Other - Provider: Jae Walden RN - Comment: given by ) 2-22 mg, Intravenous, ONCE PRN, when billie bally ordered by prescriber during the procedure, Starting Tue05/12/16 at 1254, For 1 dose, Prescriber will administer dose, IR Intra-procedure fentaNYL Citrate (PF) (SUBLIMAZE) injection 25-50 mcg (CANCELED) 1337 (Given - Provider: Jae Walden RN)1430 (Given - Provider: Jae Walden RN) 25-50 mcg, Intravenous, for 2 Minutes, E VERY 5 MIN PRN, Starting Tue05/12/16 at 1233, severe pain, If inadequate response may repeat 25 mcg IV slowly Q 5 min PRN severe pain, Doses can be exceeded under direct oversight of patient by physician., IR Intra-procedure hydrALAZINE (APRESOLINE) injection 10 mg (COMPLETED) 1711 (Given - Provider: Suze Underwood RN) 10 mg, Intravenous, ONCE PRN, high blood pressure, Starting Tue05/12/16 at 1655, For 1 dose, May be given 15 minutes after the 1640 dose of hydralazine if the BP is greater that 175 systolic. midazolam (VERSED) injection 0.5-1 mg (CANCELED) 1337 (Given - Provider: Jae Walden, RN)1430 (Given - Provider: Jae Walden, RN) 0.5-1 mg, Intravenous, for 1 Minutes, EV KAROL 4 MIN PRN, Starting 05/12/16 at 1233, sedation, If inadequate response may repeat 0.5 mg IV slowly Q 4 minutes PRN sedation until desired response., Doses c an be exceeded under direct oversight of patient by physician., IR Intra-procedure documented in this encounter Care Teams Wind Turbine Engineer Relationship Specialty Start Date End Date Preet Huff PCP - General 06/24/11 documented as of this encounter
--- OUTSIDE RECORDS SUMMARY | 2022-09-01 20:15 | XMS_ITS | Encounter Summary ---
:1965 Author Organization [place] Address [address] [place] [address]. [place] [address] Care Team Providers Name Role Phone Preet Huff Primary Care Provider Reason for Visit Reason Onset Date Comments Nurse Advice Line 01/09/2016 Encounter Details Date Type Department Care Team Description 01/09/2016 Telephone [facility] V[facility] Janell Edgar, LINDA Nurse Advice Line [address] [phone] Social History Tobacco Use Types Packs/Day Years Used Date Smoking Tobacco: Never Smokeless Tobacco: Never Alcohol Use Standard Drinks/Week Comments No 0 (1 standard drink = 0.6 oz pure alcoho l) Sex Assigned at Date Recorded Not on file documented as of this encounter Miscellaneous Notes Telephone Encounter - Janell Edgar RN - 01/09/2016 4:46 PM CDT Rocio from home care called asking what the recommended dressing changes are and if home to continue care 3 times a week. Left voice message. RN called back and left message for Anna at home care office, noting dressing changes wet to dry and care 3 times a week remain the same, no changes. Anna notes understanding. *mao. documented in this encounter Plan of Treatment Not on filedocumented as of this encounter Visit Diagnoses Not on filedocumented in this encounter Care Teams Junior Media Buyer Relationship Specialty Start Date End Date Preet Huff PCP - General 06/24/11 documented as of this encounter
--- OUTSIDE RECORDS SUMMARY | 2022-09-01 20:15 | XMS_ITS | Encounter Summary ---
:1965 Author Organization [place] Address [address] [facility] [place] [address] Care Team Providers Name Role Phone Preet Huff Primary Care Provider Encounter Details Date Type Department Care Team Description 12/30/2015 Hospital Encounter [facility] Jaxon Saravia stage renal disease on dialysis (H); [facility] MD Preet Complication of vascular access for dial ysis [address] [place] [address] [place] [address] [phone] Social History Tobacco Use Types Packs/Day Years [...] x 20mg tablet = 40mg ) b uqxvobz-N-eilhy acid Take 1 capsule by 0 03/04/2016 [...] encounter Progress Notes Jaxon Saravia MD - 01/02/2016 9:40 AM CDT Quick Note: Patient would be a candidate for a mid thigh loop ProCol graft once the groin wound has healed. Jaxon Saravia MD documented in this encounter Plan of Treatment Not on filedocumented as of this encounter Procedures Procedure Name Priority Date/Time Associated Diagnosis Comme nts US LOWER EXTREMITY Routine 12/30/2015 2:46 PM End stage renal Results for this VENOUS DUPLEX LEFT CDT disease on dialysis pr ocedure are in (H) the results Complication of section. vascular access for dialysis documented in this encounter Results US Lower Extremity Venous Duplex Left (12/30/2015 2:46 PM CDT) Anatomical Region Laterality Modality Vascular, Thigh, Leg Ultrasound Specimen (Source) Anatomical Location Collection Method / Collectio n Time Received Time / Laterality Volume Impressions 12/30/2015 4:15 PM CDT IMPRESSION: Left superficial femoral vein is patent throughout the thigh and appears to be of good caliber for fistula purposes. TEJAS MOYA MD Narrative 12/30/2015 4:15 PM CDT LEFT LOWER EXTREMITY VENOUS DUPLEX ULTRASOUND ??12/30/2015 ??2:46 PM HISTORY: Renal failure, evaluate left yoo perficial femoral vein for creation of new left superficial femoral artery with superficial femoral vein AV fistula. Duplex ultrasound with waveform and spec tral analysis and color flow imaging was performed. ?? FINDINGS: The left superficial femoral v ein is patent from the proximal thigh to the knee with diameter s of 5.6 mm in the proximal and mid thigh, 6.2 mm in the distal thig h, 9.9 mm just above the knee. The vein was not marked on the patient's skin. Procedure Note Tejas Moya MD - 12/30/2015Formatti ng of this note might be different from the original. LEFT LOWER EXTREMITY VENOUS DUPLEX ULTRA SOUND 12/30/2015 2:46 PM HISTORY: Renal failure, evaluate left yoo perficial femoral vein for creation of new left superficial femoral artery with superficial femoral vein AV fistula. Duplex ultrasound with waveform and spec tral analysis and color flow imaging was performed. FINDINGS: The left superficial femoral v ein is patent from the proximal thigh to the knee with diameter s of 5.6 mm in the proximal and mid thigh, 6.2 mm in the distal thig h, 9.9 mm just above the knee. The vein was not marked on the patient's skin. IMPRESSION: Left superficial femoral vei n is patent throughout the thigh and appears to be of good caliber for fistula purposes. TEJAS MOYA MD Jaxon Saravia MD IMG US ORDERABLES documented in this encounter Visit Diagnoses Diagnosis End stage renal disease on dialysis (H) End stage renal disease Complication of vascular access for dial ysis Other and unspecified complications of m edical care, not elsewhere classified documented in this encounter Care Teams Cutting And Splicing Supervisor Relationship Specialty Start Date End Date Preet Huff PCP - General 06/24/11 documented as of this encounter
--- OUTSIDE RECORDS SUMMARY | 2022-09-01 20:15 | XMS_ITS | Encounter Summary ---
:1965 Author Organization [place] Address [address] [facility] [place] [address] Care Team Providers Name Role Phone Preet Huff Primary Care Provider Reason for Visit Reason Onset Date Comments Nurse Advice Line 01/13/2016 Encounter Details Date Type Department Care Team Description 01/13/2016 Telephone [facility] Vascular Janell Edgar RN Nurse Advice Line [address] [phone] Social History Tobacco Use Types Packs/Day Years Used Date Smoking Tobacco: Never Smokeless Tobacco: Never Alcohol Use Standard Drinks/Week Comments No 0 (1 standard drink = 0.6 oz pure alcoho l) Sex Assigned at Date Recorded Not on file documented as of this encounter Miscellaneous Notes Telephone Encounter - Janell Edgar RN - 01/19/2016 12:01 PM CDT RN called Heidi from [facility] back regarding the reported light growth of pseudomonas aeruginosa positive lab results. RN explained discussed with Dr. Saravia, who notes pt is on Ancef and no changes of orders. Heidi notes understanding. *mao. Telephone Encounter - Janell Edgar RN - 01/13/2016 3:06 PM CDT Heidi from [facility] called to report culture swab of incision area results show light growth of pseudomonas aeruginosa. Pt is receiving Ancef. Inquiring if Dr. Saravia recommending any changes. Please advise. *mao. documented in this encounter Plan of Treatment Not on filedocumented as of this encounter Visit Diagnoses Not on filedocumented in this encounter Care Teams Machine Operators Relationship Specialty Start Date End Date Preet Huff PCP - General 06/24/11 documented as of this encounter
--- OUTSIDE RECORDS SUMMARY | 2022-09-01 20:15 | XMS_ITS | Encounter Summary ---
:1965 Author Organization [place] Address [address] [facility] [place] [address] Care Team Providers Name Role Phone Preet Huff Primary Care Provider Reason for Visit Reason Onset Date Comments Other 03/23/2016 signs of infection Encounter Details Date Type Department Care Team Description 03/23/2016 Telephone [facility] Jaxon Ralph Other (s [facility] Mk [place] MD infection) [address] [place] [address] [place] [address] (Wo rk) Social History Tobacco Use Types Packs/Day Years Used Date Smoking Tobacco: Never Smokeless Tobacco: Never Alcohol Use Standard Drinks/Week Comments No 0 (1 standard drink = 0.6 oz pure alcoho l) Sex Assigned at Date Recorded Not on file documented as of this encounter Miscellaneous Notes Telephone Encounter - Janell Edgar RN - 03/23/2016 4:10 PM CDT I discussed with Dr. Ralph who notes pt to be scheduled for follow up appointment. Pt NOV scheduled on 04-01-[address] Ralph. Janell Edgar, RN,BSN. Telephone Encounter - Roshni Cornejo RN - 03/23/2016 10:09 AM CDT Patient status post LEFT ABOVE KNEE POPLITEAL TO SUPERFICIAL THIGH FEMORAL VEIN PROCOL GRAFT for dialysis access on 03/05/[address] Ralph. Patient's in home sales consultant, Regla, calling today to report that yesterday, the home care nurse noticed possible signs of infection; small amount of light brown malodorous drainage, with patient reporting new onset of pain at surgical site. No fever, no redness or swelling. It was unclear what the surgical wound care has been since patient's discharge at the end of February. Regla is going to speak with the home care nurses to ascertain how often or whether the surgical dressings had ever been removed prior to yesterday and call us back with more details. Will also discuss the above with Dr. ralph to come up with a plan. Patient scheduled to see Dr. Ralph 04/01/16 for first post op, but will likely need to be seen sooner. Roshni Cornejo RN BSN documented in this encounter Plan of Treatment Not on filedocumented as of this encounter Visit Diagnoses Not on filedocumented in this encounter Care Teams Garbage Man Relationship Specialty Start Date End Date Preet Huff PCP - General 06/24/11 documented as of this encounter
--- OUTSIDE RECORDS SUMMARY | 2022-09-01 20:15 | XMS_ITS | Encounter Summary ---
:1965 Author Organization [place] Address [address] [facility] [place] [address] Care Team Providers Name Role Phone Preet Huff Primary Care Provider Reason for Visit Reason Onset Date Comments Nurse Advice Line 04/26/2016 Encounter Details Date Type Department Care Team Description 04/26/2016 Telephone [facility] Jaxon Saravia Advice Line Interventional Radio logy MD Preet [address] [place] [phone] [address] [place], [place] [phone] (Wo rk) Social History Tobacco Use Types Packs/Day Years Used Date Smoking Tobacco: Never Smokeless Tobacco: Never Alcohol Use Standard Drinks/Week Comments No 0 (1 standard drink = 0.6 oz pure alcoho l) Sex Assigned at Date Recorded Not on file documented as of this encounter Miscellaneous Notes Telephone Encounter - Janell Edgar RN - 04/26/2016 10:03 AM CDT Pt has history of left thigh Procol graft on 03-05-16. Has been dialyzing via right groin tunneled cath. Heidi from [facility] called noting left thigh graft is occluded, they were able to use for about 3 weeks then it occluded. Pt still has right groin tunneled cath in which they are able to dialyze with, last dialysis was Tuesday04-24-16. I spoke to Dr. Saravia who notes we need to schedule pt for a re-open of Left thigh Procol graft. I discussed with Torito who notes understanding and with Radha meter shop supervisor who will coordinate procedure. Janell Edgar, RN, BSN. Telephone Encounter - Rima Mai RN - 04/26/2016 8:54 AM CDT Heidi from [facility] ([phone]) to cancel appointment for Herminio Victor for dialysis cath removal. Patient will continue to require the dialysis catheter at this time. documented in this encounter Plan of Treatment Not on filedocumented as of this encounter Visit Diagnoses Not on filedocumented in this encounter Care Teams Front Line Supervisor Relationship Specialty Start Date End Date Preet Huff PCP - General 06/24/11 documented as of this encounter
--- OUTSIDE RECORDS SUMMARY | 2022-09-01 20:15 | XMS_ITS | Encounter Summary ---
:1965 Author Organization [facility] Address [address] [place] [id number] Care Team Providers Name Role Phone Preet Huff Primary Care Provider Reason for Visit Reason Comments Wound Check came from Dialysis where it was noted he may have an infection of lt thigh where he recently had surgery Encounter Details Date Type Department Care Team Description 01/08/2016 Emergency [facility] Yun Marinelli, Emile n wound of lower limb, left, subsequent encounter; [facility] (chronic renal failure), unspecified stage Dept [facility] [address] [place] [address] [place] [id number] [address] [place] [address]169 (Wo rk) Social History Tobacco Use Types Packs/Day Years Used Date Smoking Tobacco: Never Smokeless Tobacco: Never Alcohol Use Standard Drinks/Week Comments No 0 (1 standard drink = 0.6 oz pure alcoho l) Sex Assigned at Date Recorded Not on file documented as of this encounter Last Filed Vital Signs Vital Sign Reading Time Taken Comments Blood Pressure 166/88 01/08/2016 10:33 AM CDT Pulse 64 01/08/2016 10:33 AM CDT Temperature 36.8 ??C (98.2 ??F) 01/08/2016 10:33 AM CDT Respiratory Rate 18 01/08/2016 10:33 AM CDT Oxygen Saturation 100% 01/08/2016 10:33 AM CDT Inhaled Oxygen Concentration - - Weight - - Height - - Body Mass Index - - documented in this encounter Discharge Instructions Discharge InstructionsYun Marinelli MD - 01/08/2016 1:07 PM CDT Call your Dialysis unit today to see if they want you to run tomorrow or on your next scheduled day. Change the dressing on your wound twice daily with new gauze. AttachmentsThe following attachments cannot be sent through Care Everywhere. DRESSING CHANGE (ITALIAN)WOUND CARE (ITALIAN)documented in this encounter Medications at Time of [...] x 20mg tablet = 40mg ) b xupalvm-O-qyrns acid Take 1 capsule by 0 03/04/2016 (NEPHROCAPS) 1 MG mouth daily (with capsule dinner) simvastatin (ZOCOR) 40 Take 40 mg by mouth 0 12/16/2017 MG tablet every evening amLODIPine (NORVASC) 10 On non-dialysis days 30 tablet 0 03/04/2016 MG tabletIndications: M, W, , Tuesday Essential hypertension bisacodyl (DULCOLAX) 5 [...] documented as of this encounter Progress Notes Cintia Lares MD - 01/08/2016 12:04 PM CDT Vascular Surgery Initial Consult January 08, 2016 Herminio Victor Date of : 1965 Date of Admission:01/08/2016 Primary care provider: Preet Huff Requesting physician: Yun Marinelli MD ASSESSMENT AND RECOMMENDATIONS: #1 Healing left groin wound Plan: Can be discharged home with home nursing. Wound packed wet to dry. Wound healing well. hemostasis obtained in ED. Seen and examined with Dr. Saravia. HISTORY OF PRESENT ILLNESS: Herminio Victor is a 50 year old who is s/p debridement of his left fistula wound. He returns today from dialysis only having completed a half-run due to concerns for infection and drainage. At time of exam in ED the patient's wound appeared clean. The patient appeared non-toxic and in no pain. No surrounding erythema to wound. 6'0clock cavity closed and healing well. No signs of infection. PROCEDURE: Wound prepped with betadine solution. Prominent granulation present and debrided sharply at bedside and tolerated well. Cautery used to obtain hemostasis. No apparent infection, no cultures needed. No palpable fluid collection, no cavity Identified. Wound cleaned and dressed with clean dressing. Can be changed daily. PMH: Past Medical History Diagnosis Date ??? Hypertension ??? Anemia ??? Retinopathy ??? Kidney disease ??? Kidney disease ??? Hyperkalemia ??? ESRD (end stage renal disease) ([facility]) dialysis ??? Blind ??? DVT (deep venous thrombosis) ([facility]) ??? Orthostasis ??? Diabetes mellitus (HCC) ??? Syncope ??? Hypertension ??? A-V fistula ([facility]) left forearm ??? Hyperlipemia ??? Cognitive deficits ??? Anemia ??? Sleep apnea CPAP ??? Chronic in-center hemodialysis status ([facility]) ??? Hyperlipidaemia ??? History of staph septicemia 12/20/2015 PSH: Past Surgical History Procedure Laterality Date ??? Av fistula or graft arterial ??? Abdomen surgery ??? Genitourinary surgery TURP,CIRCUMCISION ??? Create fistula arteriovenous upper extremity 10/20/2011 Procedure:CREATE FISTULA ARTERIOVENOUS UPPER EXTREMITY; VEIN PATCH RIGHT ARM ARTERIOVENOUS FISTULA WITH BOVINE PATCH; Surgeon:ROBER SARAVIA; Location:[facility] OR ??? Create graft loop arteriovenous lower extremity 05/03/2012 Procedure: CREATE GRAFT LOOP ARTERIOVENOUS LOWER EXTREMITY; RIGHT GROIN LOOP GRAFT WITH CADAVER FEMORAL ARTERY; Surgeon: Rober Saravia MD; Location: [facility] OR ??? Insert catheter venous translumbar 08/08/2012 Procedure: INSERT CATHETER VENOUS TRANSLUMBAR; LUMBAR TUNNEL CATH PLACEMENT.; Surgeon: Michele Fuentes MD; Location: [facility] OR ??? Bypass graft femoropopliteal 08/09/2012 Procedure: BYPASS GRAFT FEMOROPOPLITEAL; REDO RIGHT PROFUNDUS FEMORAL TO COMMON FEMORAL ACCESS GRAFT WITH PTFE (POLY TETRA FLOROETHELINE GRAFT), REMOVAL COMMON FEMORAL VEIN STENT, GRAFT EMBOLECTOMY; Surgeon: Rober Saravia MD; Location: [facility] OR ??? Thrombectomy lower extremity 08/09/2012 Procedure: THROMBECTOMY LOWER EXTREMITY;; Surgeon: Rober Saravia MD; Location: [facility] ??? Create fistula arteriovenous lower extremity 06/20/2013 Procedure: CREATE FISTULA ARTERIOVENOUS LOWER EXTREMITY; LEFT GROIN PTFE DIALYSIS ACCESS; Surgeon: Rober Saravia MD; Location: [facility] ??? Revision fistula arteriovenous lower extremity 05/08/2014 Procedure: REVISION FISTULA ARTERIOVENOUS LOWER EXTREMITY; Surgeon: Rober Saravia MD; Location: [facility] ??? Revision fistula arteriovenous lower extremity Left 06/04/2014 Procedure: REVISION FISTULA ARTERIOVENOUS LOWER EXTREMITY; Surgeon: Rober Saravia MD; Location: [facility] ??? Irrigation and debridement lower extremity, combined Left 06/04/2014 Procedure: COMBINED IRRIGATION AND DEBRIDEMENT LOWER EXTREMITY; Surgeon: Rober Saravia MD; Location: [facility] ??? C place cath av dialysis shunt left thigh 05/23 ??? Create fistula arteriovenous lower extremity Left 07/02/2015 Procedure: CREATE FISTULA ARTERIOVENOUS LOWER EXTREMITY; Surgeon: Rober Saravia MD; Location: [facility] ??? Create graft loop arteriovenous lower extremity Left 08/13/2015 Procedure: CREATE GRAFT ARTERIOVENOUS LOWER EXTREMITY; Surgeon: Rober Saravia MD; Location: [facility] ??? Revision fistula arteriovenous lower extremity Left 11/19/2015 Procedure: REVISION FISTULA ARTERIOVENOUS LOWER EXTREMITY; Surgeon: Rober Saravia MD; Location: [facility] ??? Irrigation and debridement lower extremity, combined Left 12/19/2015 Procedure: COMBINED IRRIGATION AND DEBRIDEMENT LOWER EXTREMITY; Surgeon: Honorio Aceves MD; Location: [facility] FH: Family History Problem Relation Age of Onset ??? Family history unknown: Yes [facility]: History Social History ??? Marital Status: Single Spouse Name: N/A Number of Children: N/A ??? Years of Education: N/A Occupational History ??? Not on file. Social History Main Topics ??? Smoking status: Never Smoker ??? Smokeless tobacco: Never Used ??? Alcohol Use: No ??? Drug Use: No ??? Sexual Activity: Not on file Other Topics Concern ??? Not on file Social History Narrative Allergies: Allergies Allergen Reactions ??? 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 Auth Provider amLODIPine (NORVASC) 10 MG tablet On non-dialysis days , , , Tuesday Janine Uriarte PA-C calcium acetate (PHOSLO) 667 MG CAPS Take 667 mg by mouth 3 times daily as needed (With snacks) Unknown, Entered By History WARFARIN SODIUM PO Take 5 mg by mouth every evening Unknown, Entered By History vitamin B complex with vitamin C (VITAMIN B COMPLEX) TABS Take 1 tablet by mouth every evening Reported, Patient Calcium Acetate, Phos Binder, (CALCIUM ACETATE PO) Take 1,334 mg by mouth 3 times daily (with meals)Takes with meals and snacks (2 x 667mg tablet) Reported, Patient LISINOPRIL PO Take 20 mg by mouth daily Take on , , , (Non-dialysis days only) Reported, Patient bisacodyl (DULCOLAX) 5 MG EC tablet Take 10 mg by mouth See Admin Instructions Take on BID on , , , (Non-dialysis days only) Unknown, Entered By History Cholecalciferol (VITAMIN D3 PO) Take 2,000 Units by mouth daily Unknown, Entered By History Metoprolol Tartrate (LOPRESSOR PO) Take 100 mg by mouth 2 times daily In the AM and at Noon. Takes on M, W, F, [place] (Non-dialysis days only) Unknown, Entered By History b tiyccby-L-likhe acid (NEPHROCAPS) 1 MG capsule Take 1 capsule by mouth daily (with dinner) Reported, Patient simvastatin (ZOCOR) 40 MG tablet Take 40 mg by mouth every evening Reported, Patient Current Meds ROS: A 10 point review of systems was negative except as noted above. Physical Exam: Temp Av ??F (37.2 ??C) Min: 96 ??F (35.6 ??C) Max: 102.7 ??F (39.3 ??C) Pulse Av.3 Min: 64 Max: 90 Resp Av.6 Min: 13 Max: 24 SpO2 Av.8 % Min: 94 % Max: 100 % BP 166/88 mmHg Pulse 64 Temp(Src) 98.2 ??F (36.8 ??C) (Oral) Resp 18 SpO2 100% Exam: General: alert, no distress, resting comfortably in bed Resp: Breathing unlabored, lung sounds clear and equal on ausculation, no crackles or wheezes Ext: wound healing well with prominent granulation tissue Labs: CMP Recent Labs Lab 01/08/16 1124 NA Canceled, Test credited Unsatisfactory specimen - hemolyzedLINDA IN ER AT 1149 POTASSIUM Canceled, Test credited Unsatisfactory specimen - hemolyzedLINDA IN ER AT 1149 CHLORIDE Canceled, Test credited Unsatisfactory specimen - hemolyzedLINDA IN ER AT 1149 CO2 Canceled, Test credited Unsatisfactory specimen - hemolyzedLINDA IN ER AT 1149 ANIONGAP Canceled, Test credited Unsatisfactory specimen - hemolyzedLINDA IN ER AT 1149 GLC Canceled, Test credited Unsatisfactory specimen - hemolyzedLINDA IN ER AT 1149 BUN Canceled, Test credited Unsatisfactory specimen - hemolyzedLINDA IN ER AT 1149 CR Canceled, Test credited Unsatisfactory specimen - hemolyzedLINDA IN ER AT 1149 GFRESTIMATED Canceled, Test credited Unsatisfactory specimen - hemolyzedLINDA IN ER AT 1149 GFRESTBLACK Canceled, Test credited Unsatisfactory specimen - hemolyzedLINDA IN ER AT 1149 JON Canceled, Test credited Unsatisfactory specimen - hemolyzedLINDA IN ER AT 1149 CBC Recent Labs Lab 01/08/16 1124 HGB 8.0* WBC 2.9* RBC 3.15* HCT 26.5* MCV 84 MCH 25.4* MCHC 30.2* RDW 18.6* PLT 201 INRNo lab results found in last 7 days. Imaging: IMAGING: No imaging -Thank you for the opportunity to participate in the care of this patient. Cintia Lares MD Vascular Fellow 01/08/2016 12:04 PM documented in this encounter ED Notes Marcia Lazcano RN - 01/08/2016 1:15 PM CDT Patient's transport service called. [employer] Student Coordinator will not be here until 1500. Yun Marinelli MD - 01/08/2016 10:49 AM CDT History Chief Complaint: Wound Check HPI Herminio Victor is a 50 year old male who presents via EMS from his dialysis appointment for a wound check. Dialysis nurse thought the patient's existing left proximal thigh wound appeared infectedand was worried his blood would get infected. They stopped dialysis with one hour remaining. The patient is about 3 weeks status post incision and drainage. He has noticed a little drainage from the wound, but otherwise has no fevers, chills, pain, or spreading redness. The nurse called the dialysis unit. They said he finished most of his dialysis run. They had contacted Dr. Arellano, his dialysis doctor, who said that was enough of a run for him. The dialysis staff stated that he did not need to go back to finish his dialysis. Allergies: Aspirin; GI bleed Medications: Norvasc Calcium acetate Warfarin Lisinopril Dulcolax Lopresor Zocor Past Medical History: HTN Anemia Retinopathy End stage renal disease Blindness DVT Ortho stasis AV Fistula HTN Hyperlipidemia Cognitive deficits Anemia Sleep apnea Chronic in center hemodialysis status Hx of staph septicemia Diabetes mellitus Past Surgical History: I&D left lower extremity; 12/19/2015 Revision of fistula arteriovenous lower extremity X3 Create loop arteriovenous lower extremity X2 C place cath AV dialysis shunt I&D left lower extremity; 05/2014 Lower extremity thrombectomy Bypass graft femoropopliteal Insert catheter venous translumbar surgery Family History: No past pertinent family history. Social History: Marital Status: Single Never smoker. Negative for alcohol use. Review of Systems Constitutional: Negative for fever and chills. Musculoskeletal: Negative for myalgias. Skin: Negative for rash. All other systems reviewed and are negative. Physical Exam First Vitals: BP: 166/88 mmHg Pulse: 64 Temp: 98.2 ??F (36.8 ??C) Resp: 18 SpO2: 100 % Physical Exam Nursing note and vitals reviewed. Constitutional: Appears well-developed and well-nourished. HENT: Head: Atraumatic. Mouth/Throat: Oropharynx is clear and moist. No oropharyngeal exudate. Eyes: Pupils are equal, round, and reactive to light. Neck: Normal range of motion. Neck supple. No tracheal deviation present. No thyromegaly present. Cardiovascular: Normal rate, regular rhythm, no murmur Pulmonary/Chest: Breath sounds are clear and equal without wheezes or crackles. Abdominal: Soft. Bowel sounds are normal. Exhibits no distension and no mass. There is no tenderness. There is no rebound and no guarding. Musculoskeletal: Exhibits no edema. Lymphadenopathy: No cervical adenopathy. Neurological: Alert and oriented to person, place, and time. Skin: J shaped 8 cm open wound with granulation tissue and proud flesh over the left femoral area ofthe proximal anterior/medial thigh. There is some dark yellowish drainage from the inferior aspect of the wound. There is no skin warmth or erythema seen. There is no tenderness. Tissue is mostly soft with only 2 small areas that feel like scar tissue. Emergency Department Course Laboratory: CBC: WBC 2.9 (L), HGB 8.0 (L), PLT 201, o/w WNL BMP: Creat 7.29 (H), GFR 10 (L), o/w WNL Emergency Department Course: Nursing notes and vitals reviewed. I performed an exam of the patient as documented above. A peripheral IV was established. Blood was drawn from the patient. This was sent for laboratory testing, findings above. [address] Lares ear nose throat surgeon for vascular surgery. [address] Saravia, the patient's vascular surgeon, who was here in the department. 1302 Recheck. The patient is signed out to Dr. Barba. Impression & Plan Medical Decision Making: Herminio Victor is a 50 year old male who has a healing appearing well granulating wound with proud flesh but no sign of active infection. I consulted vascular surgery and his vascular surgeon Dr. Saravia as well as the fellow Dr. Lares saw the patient in the department and they performed woundcare. They agree that there does not appear to be any active infection. We felt that he could be safely discharged home. We called the dialysis unit who states that he did not need to dialyze any more today. The plan will be that his transport company will transport him home. I performed a CBC and BMPand he does not have any significant electrolyte abnormality. He has not been having any symptoms of anemia. I felt that his anemia is due to his chronic renal failure. There is no active bleeding so Idid not feel blood transfusion was indicated with a hemoglobin of 8. He is [facility]ba to monitor him until his transportation arrives. He was instructed on wound careand dressing changes. Diagnosis: ICD-10-CM 1. Open wound of lower limb, left, subsequent encounter S81.802D 2. CRF (chronic renal failure), unspecified stage N18.9 Vi Pierson 01/08/2016 EMERGENCY DEPARTMENT I, Vi Pierson, am serving as a scribe on 01/08/2016 at 10:49 to personally document services performed by Dr. Marinelli based on my observations and the provider's statements to me. Yun Marinelli MD 01/08/16 1603 Jeremy Solano RN - 01/08/2016 10:21 AM CDT Bed: ED02 Expected date: 01/08/16 Expected time: 9:48 AM Means of arrival: Ambulance Comments: 334 50 yo documented in this encounter Plan of Treatment Not on filedocumented as of this encounter Procedures Procedure Name Priority Date/Time Associated Comments Diagnosis BASIC METABOLIC PANEL STAT 01/08/2016 12:21 Re sults for this PM CDT procedure are i n the results section. CBC WITH PLATELETS & STAT 01/08/2016 11:24 Res ults for this DIFFERENTIAL AM CDT procedure are i n the results section. BASIC METABOLIC PANEL STAT 01/08/2016 11:24 Re sults for this AM CDT procedure are i n the results section. documented in this encounter Results (ABNORMAL) Basic metabolic panel (01/08/2016 12:21 PM CDT) Analysis Performed At Patho logist Time Signature Sodium 133 133 - 144 [place] mmol/L [facility] Potassium 3.5 3.4 - 5.3 [place] mmol/L [facility] Chloride 94 94 - 109 [place] mmol/L [facility] Carbon Dioxide 31 20 - 32 [place] mmol/L [facility] Anion Gap 8 3 - 14 [place] mmol/L [facility] Glucose 79 70 - 99 [place] mg/dL [facility] Urea Nitrogen 25 7 - 30 [place] mg/dL [facility] Creatinine 7.29 (H) 0.66 - [place] 1.25 mg/dL [facility] GFR Estimate 8 (L) >60 [place] mL/min/1.[address] Comment: Non GFR Calc GFR Estimate If Black 10 (L) >60 mL/min/1.7m2 F [facility] Comment: GFR Calc Calcium 8.2 (L) 8.5 - 10.1 mg/dL [facility] Specimen Anatomical Collection Method Collection Time Receive d Time (Source) Location / / Volume Laterality Blood specimen 01/08/2016 12:21 6 (specimen) PM CDT 12:29 PM CDT Yun Marinelli MD LAB - BLOOD ORDERABLES Performing Organization Address City/State/ZIP Code Phon e Number M [facility] [address] [id number] [facility] [address] [id number], [place] [phone] Basic metabolic panel (01/08/2016 11:24 AM CDT) Component Value Ref Test Analysis Performed At [facility] gist Range Method Time Signature Sodium Canceled, Test credited 133 - [facility] Unsatisfactory specimen - hemolyzed 144 [facility] IN ER AT 1149 mmol/L [facility] Potassium Canceled, Test credited 3.4 - [facility] Unsatisfactory specimen - hemolyzed 5.3 [facility]ANO GIORDANO IN ER AT [facility]9 mmol/L [facility]OSPITAL Chloride Canceled, Test credited 94 - 109 [facility] Unsatisfactory specimen - hemolyzed mmol/L [facility] GIORDANO IN ER AT [address] [place] [address] Carbon Dioxide Canceled, Test credited 20 - 32 [facility] [place] Unsatisfactory specimen - hemolyzed mmol/L [facility]O GIORDANO IN ER AT [address] [place] [address] Anion Gap Canceled, Test credited 6 - 17 [facility] Unsatisfactory specimen - hemolyzed mmol/L [facility] GIORDANO IN ER AT [address] [place] [address] Glucose Canceled, Test credited 70 - 99 [facility] Unsatisfactory specimen - hemolyzed mg/dL [facility]O GIORDANO IN ER AT [address] [place] [address] Urea Nitrogen Canceled, Test credited 7 - 30 [facility] Unsatisfactory specimen - hemolyzed mg/dL [facility]ANO GIORDANO IN ER AT [address] [place] [address] Creatinine Canceled, Test credited 0.66 - [facility] Unsatisfactory specimen - hemolyzed 1.25 [facility] GI[facility]O IN ER AT 1149 mg/dL HOSPITAL GFR Estimate Canceled, Test credited >60 [facility] Unsatisfactory specimen - hemolyzed mL/min/1 [facility]ANO GIORDANO IN ER AT [facility]9 .7m2 [facility] GFR Estimate Canceled, Test credited >60 [facility] If Black Unsatisfactory specimen - hemolyzed mL/min/1 [facility]O GIORDANO IN ER AT [facility]9 .7m2 [facility] Calcium Canceled, Test credited 8.5 - [facility] Unsatisfactory specimen - hemolyzed 10.1 [facility]ANO GIORDANO IN ER AT [facility]9 mg/dL HOSPITAL Specimen Anatomical Collection Method Collection Time Receive d Time (Source) Location / / Volume Laterality Blood specimen 01/08/2016 11:24 01/07/ 6 (specimen) AM CDT 11:33 AM CDT Yun Marinelli MD LAB - BLOOD ORDERABLES Performing Organization Address City/State/ZIP Code Phon e Number [facility] [address] [phone] [facility] [address] [phone], [place] [phone] (ABNORMAL) CBC with platelets + differential (01/08/2016 11:24 AM CDT) [facility] gist Method Time Signature WBC 2.9 (L) 4.0 - [place] 11.0 [facility] 10e9/L [facility] RBC Count 3.15 (L) 4.4 - 5.9 [place] 10e12/L [facility] Hemoglobin 8.0 (L) 13.3 - [place] 17.7 g/dL [facility] Hematocrit 26.5 (L) 40.0 - [place] 53.0 % [facility] MCV 84 78 - 100 [place] fl [facility] MCH 25.4 (L) 26.5 - [place] 33.0 pg [facility] MCHC 30.2 (L) 31.5 - [place] 36.5 g/dL [facility] RDW 18.6 (H) 10.0 - [place] 15.0 % [facility] Platelet Count 201 150 - 450 [place] 10e9/L [facility] Diff Method Automated [place] Method [facility] % Neutrophils 63.1 % [facility] % Lymphocytes 17.8 % [facility] % Monocytes 17.1 % [facility] % Eosinophils 1.7 % [facility] % Basophils 0.3 % [facility] % Immature 0.0 % [place] Granulocytes [facility] Absolute 1.8 1.6 - 8.3 [place] Neutrophil 10e9/L [facility] Absolute 0.5 (L) 0.8 - 5.3 [place] Lymphocytes 10e9/L [facility] Absolute 0.5 0.0 - 1.3 [place] Monocytes 10e9/L [facility] Absolute 0.1 0.0 - 0.7 [place] Eosinophils 10e9/L [facility] Absolute 0.0 0.0 - 0.2 [place] Basophils 10e9/L [facility] Abs Immature 0.0 0 - 0.4 [place] Granulocytes 10e9/L [facility] Specimen Anatomical Collection Method Collection Time Receive d Time (Source) Location / / Volume Laterality Blood specimen 01/08/2016 11:24 6 (specimen) AM CDT 11:33 AM CDT Yun Marinelli MD LAB - BLOOD ORDERABLES Performing Organization Address City/State/ZIP Code Phon e Number M [facility] [address] [phone] [facility] [address] [phone], [place] [phone] documented in this encounter Visit Diagnoses Diagnosis Open wound of lower limb, left, subseque nt encounter CRF (chronic renal failure), unspecified stage documented in this encounter Care Teams [employer] Anchor Relationship Specialty Start Date End Date Preet Huff PCP - General 06/24/11 documented as of this encounter
--- OUTSIDE RECORDS SUMMARY | 2022-09-01 20:16 | XMS_ITS | Encounter Summary ---
:1965 Author Organization [place] Address Formerly [facility] [place] [address] Care Team Providers Name Role Phone Cornell Butt Primary Care Provider Reason for Referral Home Health Therapies & Aides Specialty Diagnoses / Procedures Referred By Contact Refer red To Contact Janine Uriarte PA-C [address] [id number] Referral ID Status Reason Start Date Expiration Date Visits Requ ested Visits Authorized Reason for Visit Reason Comments Fever was at dialysis- 1030 fever of 101.finished cycle, 2 sets of cultures drawn- received rocephin and vanco- temp increased to 102. Auth/Cert Specialty Diagnoses / Procedures Referred By Contact Refer red To Contact Diagnoses Fever Fever and chills [address] [address] Phone: Referral ID Status Reason Start Date Expiration Date Visits Requ ested Visits Authorized [id number] 12/17/2015 12/16/2016 1 1 Encounter Details Date Type Department Care Team Description 12/16/2015 - [facility] Sybil Perez MD [facility] [address] [place] [address] Fever, unspecified fever cause (Primary Dx); 12/22/2015 Encounter [place] [address] Enrike Navarro MD [address], [place] [address] Fever; Medical Specialty Essential hypertension; Unit Cellulitis and abscess of le g, except foot [address], [place] [id number] Social History Tobacco Use Types Packs/Day Years Used Date Smoking Tobacco: Never Smokeless Tobacco: Never Alcohol Use Standard Drinks/Week Comments No 0 (1 standard drink = 0.6 oz pure alcoho l) Sex Assigned at Date Recorded Not on file documented as of this encounter Last Filed Vital Signs Vital Sign Reading Time Taken Comments Blood Pressure 157/83 12/22/2015 7:24 AM CDT Pulse 81 12/21/2015 3:40 PM CDT Temperature 36.8 ??C (98.3 ??F) 12/22/2015 7:24 AM CDT Respiratory Rate 16 12/22/2015 7:24 AM CDT Oxygen Saturation 100% 12/22/2015 7:24 AM CDT Inhaled Oxygen Concentration - - Weight 93.6 kg (206 lb 5.6 oz) 12/20/2015 6:13 AM [employer] [employer] Height 162.6 cm (5' 4) 12/16/2015 2:26 PM [employer] [employer] Body Mass Index 35.42 12/16/2015 2:26 PM [employer] [employer] documented in this encounter Discharge Summaries Janine Uriarte PA-C - 12/22/2015 12:54 PM CDT [facility] Discharge Summary Julio Cesar Sandhu Date of : 1965 Age: [age] year old Date of Admission: 12/16/2015 Date of Discharge: 12/22/2015 Admitting Physician: Enrike Navarro MD Discharge Physician: Janine Uriarte PA-C Discharging Service: Hospitalist Primary Provider: Cornell Butt [phone] DISCHARGE DIAGNOSES/PROBLEM ORIENTED HOSPITAL COURSE: Julio Cesar Sandhu is a 50-year-old male with past medical history significant for MSSA bacteremia,end-stage renal disease on hemodialysis, obstructive sleep apnea, hypertension, secondary hyperparathyroidism, deep venous thrombosis of upper extremity, problems with dialysis access with recent admission for a clotted left thigh dialysis graft and pseudoaneurysm requiring hematoma evacuation and ligation of the graft along with history of anemia of chronic disease who was sent from the dialysis center for fever and chills. He was admitted on 12/16/15 for additional details regarding HPI please see H&P by Dr. Navarro Sepsis 2/2 Infected left PTFE dialysis graft - He has a history of MSSA bacteremia in the past when he was admitted in 08/2015. An echo at that time had shown no vegetations and he was treated with 4 weeks of IV Ancef. No clear source of infxn seen on admit. CXR negative. Does not make urine so unableto obtain a UA/cx. Influenza neg. His right lower extremity dialysis site does not appear infected and his recent left thigh graft hematoma evacuation site looked unremarkable on admission. His dialysis catheter was changed during last admission in November. Blood cx's drawn at [facility] (1 from Catheter and 1 from arm). He was initiated on vancomycin and ceftriaxone at the dialysis center. Echocardiogram here without evidence of endocarditis. Continued to spike fever. Purulent oozing from his left groin was noted on 12/18. - Vascular surgery consulted. - Taken to the OR on 12/18 for I&D and excision of infected graft. - Blood cultures from his arms and HD cath with NGTD. - Wound culture with moderate growth staph aureus - Infectious disease consulted this hopitalization - Received Vancomycin 12/15-12/17. Ancef started 12/15. Will continue ancef T, Jeri Sat at dialysis for 4weeks. ESRD on hemodialysis/Hyponatremia/Hypokalemia: Has had problems with dialysis access and recent admission for left thigh graft pseudoaneurysm and perigraft hematoma. He is status post evacuation of hematoma and ligation of the graft by Dr. Buenrostro. The site looks good currently without a clear indication for worsening hematoma or infection. Dialysis access placed in his Right groin at that time. His dialysis catheter was changed during last admission in November. He gets dialysis Tuesday, , Tuesday and completed his dialysis on Tue. - Appreciate Nephrology consultation. - Na normalized. - Dialysis per Nephrology. Resume normal dialysis per schedule beginning tomorrow 12/22. History of upper extremity deep venous thrombosis His INR was supratherapeutic on admission. - Continued on coumadin. Hypertension: Stable. - Continue with lisinopril and Lopressor on nondialysis days - Hydralazine p.r.n. - Added Norvasc 5 mg on non HD days 12/18 due to ongoing HTN and titrated to 10mg/d. Will continue atdischarge. Follow up with primary MD in 7-10 days. Diet-controlled diabetes mellitus: His last HbA1c from 05/2014 was 5.1. - ISS Anemia of chronic disease: His hemoglobin seems to be stable around baseline of 9-10. - Follow Hgb post op. CODE STATUS: Full Code BRIEF HOSPITAL STAY SUMMARY (SENT HOME WITH PATIENT IN AVS): Reason for your hospital stay You were admitted for fevers. This was found to be due to a an infection of your left PTFE dialysis graft. You had surgery to drain your infection. You will continue wet to dry dressings daily and receive antibiotics at dialysis for 4 weeks. PENDING RESULTS: Unresulted Labs Ordered in the Past 30 Days of this Admission Date and Time Order Name Status Description 12/19/2015 1801 Anaerobic bacterial culture Preliminary 12/18/2015 0647 Blood culture Preliminary 12/17/2015 1428 Blood culture Preliminary 12/17/2015 1428 Blood culture Preliminary 12/16/2015 1740 Blood culture ONE site Preliminary DISCHARGE INSTRUCTIONS AND FOLLOW-UP: Follow-up Appointments Follow Up and recommended labs and tests 1. Continue dialysis Tuesday, , Tuesday. You will receive antibiotics at dialysis for 4 weeks 2. Follow up with Vascular clinic in 1 week 3. Follow up with primary MD in 7-10 days Follow-up and recommended labs and tests You were admitted DISCHARGE DISPOSITION: Discharged to Home DISCHARGE MEDICATIONS: Current Discharge Medication List START taking these medications Details amLODIPine (NORVASC) 10 MG tablet On non-dialysis days , , , Tuesday Qty: 30 tablet, Refills: 0 Associated Diagnoses: Essential hypertension CONTINUE these medications which have NOT CHANGED Details !! calcium acetate (PHOSLO) 667 MG CAPS Take 667 mg by mouth 3 times daily as needed (With snacks) WARFARIN SODIUM PO Take 5 mg by mouth every evening vitamin B complex with vitamin C (VITAMIN B COMPLEX) TABS Take 1 tablet by mouth every evening !! Calcium Acetate, Phos Binder, (CALCIUM ACETATE PO) Take 1,334 mg by mouth 3 times daily (with meals) Takes with meals and snacks (2 x 667mg tablet) LISINOPRIL PO Take 20 mg by mouth daily Take on , , , Leger (Non-dialysis days only) bisacodyl (DULCOLAX) 5 MG EC tablet Take 10 mg by mouth See Admin Instructions Take on BID on , , , (Non-dialysis days only) Cholecalciferol (VITAMIN D3 PO) Take 2,000 Units by mouth daily Metoprolol Tartrate (LOPRESSOR PO) Take 100 mg by mouth 2 times daily In the AM and at Noon. Takes on , , , (Non-dialysis days only) b jcuqnyq-V-wccor acid (NEPHROCAPS) 1 MG capsule Take 1 capsule by mouth daily (with dinner) simvastatin (ZOCOR) 40 MG tablet Take 40 mg by mouth every evening !! - Potential duplicate medications found. Please discuss with provider. ALLERGIES: Allergies Allergen Reactions ??? Aspirin [Dihydroxyaluminum Aminoacetate] GI Disturbance GI bleeding CONSULTATIONS THIS HOSPITAL STAY: Infectious disease, vascular surgery and Nephrology CONDITION AND PHYSICAL EXAM ON DISCHARGE: Discharge Condition: Stable BP 157/83 mmHg Pulse 81 Temp(Src) 98.3 ??F (36.8 ??C) (Oral) Resp 16 Ht 1.626 m (5' 4) Wt93.6 kg (206 lb 5.6 oz) BMI 35.40 kg/m2 SpO2 100% Gen: sitting in bed, alert, cooperative and in no acute distress HEENT: normocephalic; oropharynx clear Card: RRR, S1, S2, no murmurs Resp: lungs clear to auscultation bilaterally GI: abdomen soft, not-tender, non-distended, +BS Ext: dressing in place to left thigh Neuro: CX II-XII grossly in tact; ROM in all four extremities grossly in tact Psych: alert and oriented x3; normal affect DISCHARGE ORDERS FOR FACILITY: After Care Instructions Activity Your activity upon discharge: activity as tolerated Diet Follow this diet upon discharge: Orders Placed This Encounter Fluid restriction 1500 ML FLUID Dialysis Diet Wound care and dressings Instructions to care for your wound at home: Wet to dry dressing 1-2x/day DISCHARGE TIME: Greater than 30 minutes. IMAGING RESULTS FROM THIS HOSPITAL STAY: Results for orders placed or performed during the hospital encounter of 12/16/15 XR Chest 2 Views Narrative XR CHEST 2 VW 12/16/2015 3:41 PM HISTORY: Chest Pain, Shortness of Breath Impression IMPRESSION: Negative. SHAHID BRANTLEY MD MOST RECENT LAB RESULTS: Most Recent 3 CBC's: Recent Labs Lab Test 12/22/15 0754 12/21/15 0740 12/20/15 0910 WBC 5.5 5.2 5.3 HGB 7.8* 8.2* 8.5* MCV 82 83 81 PLT 154 153 147* Most Recent 3 BMP's: Recent Labs Lab Test 12/22/15 0754 12/21/15 0740 12/20/15 0910 NA 132* 135 137 POTASSIUM 5.4* 4.7 3.1* CHLORIDE 99 99 98 CO2 27 27 31 BUN 62* 50* 11 CR 9.27* 7.71* 1.70* ANIONGAP 6 9 8 JON 8.7 8.4* 7.4* GLC 90 110* 107* Most Recent 3 Troponin's:No lab results found. Invalid input(s): TROP, TROPONINIES Most Recent 3 INR's: Recent Labs Lab Test 12/22/15 0754 12/21/15 0740 12/20/15 0910 INR 1.90* 2.02* 2.31* Most Recent 2 LFT's: Recent Labs Lab Test 12/16/15 1501 AST 17 ALT 16 ALKPHOS 139 BILITOTAL 0.6 Most Recent Cholesterol Panel:No lab results found. Most Recent 6 Bacteria Isolates From Any Culture (See EPIC Reports for Culture Details): Recent Labs Lab Test 12/19/15 1801 12/19/15 0840 12/18/15 1000 12/17/15 1945 12/17/15 1546 12/17/15 1502 CULT Moderate growth Staphylococcus aureus This isolate is presumed to be clindamycin resistant based on detection of inducible clindamycin resistance. Erythromycin and clindamycin are resistant, therefore, they are not recommended for use. * Culture negative monitoring continues Moderate growth Staphylococcus aureus This isolate is presumed to be clindamycin resistant based on detection of inducible clindamycin resistance. Erythromycin and clindamycin are resistant, therefore, they are not recommended for use. * No growth after 4 days No growth after 5 days Duplicate request Charge credited No growth after 5 days Most Recent TSH, T4 and HgbA1c: Recent Labs Lab Test 12/18/15 0800 A1C Below Assay Range Canceled, Test credited REPORTED TO RN ON DIALYSIS AT 1056 Associated attestation - Tahmina García MD - 12/22/2015 1:53 PM CDT Physician Attestation I, Tahmina García, personally saw and evaluated Julio Cesar Sandhu as part of a shared visit. I have reviewed and discussed with the advanced practice provider their discharge plan. My sanz history or physical exam findings from the day of discharge: No events overnight. Offers no complaints. Met with patient's family at bedside Constitutional: Appears comfortable, NAD Respiratory: Breathing non-labored. Psych: Flat affect Sanz management decisions made by me: 1. Sepsis due to infected left PTFE dialysis graft 2. ESRD on HD 3. Essential hypertension, uncontrolled 4. DM2 with diabetic nephropathy, controlled 5. History of DVT on chronic anticoagulation with warfarin 6. Anemia of chronic disease - Will continue IV cefazolin with dialysis - Patient's aunt is willing to assist with dialysis catheter exit site dressing changes - labor law professor has also been ordered at discharge - He has been started on amlodipine 10 mg daily for uncontrolled hypertension - Continues on therapeutic anticoagulation with warfarin as well as his other home medications Discharge to home today Tahmina García Date of Service (when I saw the patient): 12/22/2015 documented in this encounter Medications at Time [...] x 20mg tablet = 40mg ) b nmqhnvv-T-gnjwi acid Take 1 capsule by 0 03/04/2016 [...] and at Noon. Takes on M, W, , Leger (Non-dialysis days only) (Takes 2 x 100mg tablet = 200mg) vitamin B complex with Take 1 tablet by 0 04/25/2017 vitamin C (VITAMIN B mouth every evening COMPLEX) TABS WARFARIN SODIUM PO Take 5 mg by mouth 0 12/19/2017 every evening documented as of this encounter Progress Notes Nika Magdaleno RN - 12/22/2015 3:41 PM CDT DISCHARGE SUMMARY FAXED TO [facility] A[facility] - 12/22/2015 1:40 PM CDT SW D: Patient resides at home with his mother and aunt. Patient receives 6 hours of REGISTERED NURSE [employer] services daily thru [facility] and his nurse snow removal supervisor is Zuleyka [phone]. His REGISTERED NURSE [employer] is his aunt Thelma. Patient will have the need for daily dressing changes 1-2 times a day. His aunt, felt able to provide the dressing changes on her own, however the REGISTERED NURSE [employer] nursing snow removal supervisor is requesting skilled RN services be involved to educate and assess how patient does once home. Patient lives in [place] which [facility] does not serve. Arrangements made thru [facility] [phone]. [facility] can start of care tomorrow. Orders faxed to both [facility] at [phone] and to [facility] at [phone]. Family family plans to transport home. Nika Magdaleno RN - 12/22/2015 12:41 PM CDT MET WITH PATIENTS AUNT WHO IS HIS REGISTERED NURSE [employer]-SHE DOES NOT WANT HOME CARE AND FEELS SHE CAN DO THE DRESSINGHER SELF. DID NOT WANT A DEMONSTRATION OF THE DRSG CHANGE. sHE DID REQUEST A FEW SUPPLIES TO GO HOMEWITH. Alejandro Emerson MD - 12/22/2015 12:14 PM CDT I called his dialysis unit - [facility] - [phone]. I gave the handkerchief sample clerk orders for Ancef 2 gram Q Tues, 2 grams Q Thurs and 3 grams Q Sat X 4 weeks. They expect him back tomorrow. Please Fax discharge summary to them at [phone] Alejandro Emerson MD Ezequiel Pierre MD - 12/22/2015 9:45 AM CDT [facility] Infectious Disease Progress Note Date of Service (when I saw the patient): 12/22/2015 Assessment and Plan Julio Cesar Sandhu is a 50 year old male who was admitted on 12/16/2015. Impression: 50 y.o male with ESRD, DM, Cognitive deficit admitted from Dialysis unit after fevers and chills during dialysis. No other complaints. History of MSSA bacteremia. Recently on 11/19 - 11/20 had a clotted left thigh dialysis graft and pseudoaneurysm/ perigraft hematoma and ligation of the graft. And a new right sided dialysis catheter was placed at that time. There was purulence noted on this site during this admission and was taken to the OR for I and D of this area. Parts of PTFE graft is still in place. The cultures from the graft grew out MSSA. Recommendations: Will switch to Ancef for covering MSSA growing from the the ligated graft abscesses. Can be done 2 gm after dialysis on Tuesday and Tuesday and then 3gm after Tuesday dialysis. Planning on 4 weeks course. Ezequiel Pierre MD Interval History Blood cxs negative. Denies PRICE, sore throat, rhinitis, cough, myalgias. Physical Exam Temp: 98.3 ??F (36.8 ??C) Temp src: Oral BP: 157/83 mmHg Pulse: 81 Heart Rate: 73 Resp: 16 SpO2: 100% O2 Device: None (Room air) Filed Vitals: 12/18/15 0500 12/19/15 0600 12/20/15 0613 Weight: 91.8 kg (202 lb 6.1 oz) 93.1 kg (205 lb 4 oz) 93.6 kg (206 lb 5.6 oz) Vital Signs with Ranges Temp: [97.2 ??F (36.2 ??C)-98.3 ??F (36.8 ??C)] 98.3 ??F (36.8 ??C) Pulse: [81] 81 Heart Rate: [73-84] 73 Resp: [16] 16 BP: (157-175)/(73-85) 157/83 mmHg SpO2: [98 %-100 %] 100 % GENERAL APPEARANCE: awake EYES: one eye appears grossly smaller is size, known blindness HENT: Mouth without ulcers or lesions NECK: no adenopathy RESP: lungs clear to auscultation CV: regular rates and rhythm, normal S1 S2 LYMPHATICS: normal ant/post cervical and supraclavicular nodes ABDOMEN: soft, nontender and bowel sounds normal MS: the dialysis catheter on the right femoral area appears to be slightly out, no gross redness erythema or discharge from around it. The area of previous graft on the left has dressing in place now. Medications ??? Warfarin Therapy Reminder ??? - MEDICATION INSTRUCTIONS - ??? amLODIPine 5 mg Oral Once per day on Sun Tue ??? sodium chloride (PF) 3 mL Intravenous Q8H ??? - MEDICATION INSTRUCTIONS for Dialysis Patients - Does not apply See Admin Instructions ??? insulin aspart 1-7 Units Subcutaneous TID AC ??? insulin aspart 1-5 Units Subcutaneous At Bedtime ??? B dglglmv-T-eydqo acid 1 capsule Oral Daily with supper ??? calcium acetate 1,334 mg Oral TID w/meals ??? lisinopril (PRINIVIL,ZESTRIL) tablet 20 mg 20 mg Oral Once per day on Sun Tue ??? metoprolol (LOPRESSOR) tablet 100 mg 100 mg Oral 2 times per day on Sun Tue ??? simvastatin 40 mg Oral QPM ??? cefTRIAXone 1 g Intravenous Q24H ??? vancomycin place watson - receiving intermittent dosing 1 each Does not apply See Admin Instructions Data All microbiology laboratory data reviewed. Recent Labs Lab Test 12/22/15 0754 12/21/15 0740 12/20/15 0910 WBC 5.5 5.2 5.3 HGB 7.8* 8.2* 8.5* HCT 25.5* 27.2* 27.2* MCV 82 83 81 PLT 154 153 147* Recent Labs Lab Test 12/22/15 0754 12/21/15 0740 12/20/15 0910 CR 9.27* 7.71* 1.70* No lab results found. Recent Labs Lab Test 12/19/15 1801 12/19/15 0840 12/18/15 1000 12/17/15 1945 12/17/15 1546 12/17/15 1502 12/17/15 1448 12/16/15 1714 12/16/15 0730 CULT Moderate growth Staphylococcus aureus This isolate is presumed to be clindamycin resistant based on detection of inducible clindamycin resistance. Erythromycin and clindamycin are resistant, therefore, they are not recommended for use. * Culture negative monitoring continues Moderate growth Staphylococcus aureus This isolate is presumed to be clindamycin resistant based on detection of inducible clindamycin resistance. Erythromycin and clindamycin are resistant, therefore, they are not recommended for use. * No growth after 4 days No growth after 5 days Duplicate request Charge credited No growth after 5 days No growth after 5 days No growth Canceled, Test credited Duplicate request [id number] Canceled, Test credited Duplicate request [id number] Jaxon Buenrostro MD - 12/22/2015 7:25 AM CDT Vascular Surgery Progress Note S: No acute events, no concerns. Feels well. Denies pain. O: Vitals: BP Min: 165/73 Max: 190/101 Temp Av.7 ??F (36.5 ??C) Min: 97.2 ??F (36.2 ??C) Max: 98.2 ??F (36.8 ??C) Pulse Av Min: 81 Max: 81 I/O last 3 completed shifts: In: 1090 [P.O.:1090] Out: - Physical Exam: Alert, no distress Breathing comfortably L groin wound getting smaller, granulating wound base, pink, some fibrinous exudate Dressing changed this AM Assessment/Plan: 50yoM presented w/ fevers w/ infected L groin defunctionalized AV graft s/p I+D and graft excision 12/18, graft is not completely excised. Afebrile, clinically appears to be doing well. Cultures grew MSSA, not surprising given recent hospitalization for MSSA sepsis this past fall. On vanc/ceftriaxone per ID. Dialyzes via R thigh tunneled catheter. Bl cxs have been neg this admission. Continue on abx per ID, defer to them on timing for transition to oral abx Continue wet to dry dressing changes to L thigh wound Update: Okay for once a day wet to dry dressing changes if this allows him to go home. If ultimatelyhe has to go to a facility, could do bid dressing changes. Follow up in Vascular Clinic in [address] Buenrsotro. Vi Rocha Surgery Resident, PGY4 Pager [phone] Staff: Agree with above. He does have a small remaining segment of PTFE going into the femoral vein left (segment removed with recent surgery) that is clotted. He also has 4-6 cm of inflow PTFE off theCFA laterally with no evidence of infection. We need to treat this recent abscess and allow to heal.Eventually an entire new left thigh graft will need to be done with ? ProCol to decrease risk of infection. He has no upper extremity options Nor options in the left groin. ?? Consider a mid thigh ProCol loop to stay out of scarred groin site ( will re-evaluate this option on follow-up appointment). Permanent access is better for patient with risk of tunnel catheter infection especially in the groin on chronic basis. Jaxon Buenrostro MD Mike Aceves MD - 12/21/2015 8:37 AM CDT PO#2 Afebrile, VSS No complaints Wound examined; starting to granulate. No residual necrosis or purulance Improving Culture noted Dr. Buenrostro to F/U in am Koko Singh DO - 12/21/2015 8:16 AM CDT [facility] Hospitalist Progress Note Koko Singh DO 12/21/2015 Interval History: Patient states he is doing well. Resting comfortably. Assessment and Plan: Julio Cesar Sandhu is a 50-year-old male with past medical history significant for MSSA bacteremia,end-stage renal disease on hemodialysis, obstructive sleep apnea, hypertension, secondary hyperparathyroidism, deep venous thrombosis of upper extremity, problems with dialysis access with recent admission for a clotted left thigh dialysis graft and pseudoaneurysm requiring hematoma evacuation and ligation of the graft along with history of anemia of chronic disease who was sent from the dialysis center for fever and chills. Sepsis 2/2 Infected left PTFE dialysis graft - POD # 1 He does have history of MSSA bacteremia in the past when he was admitted in 08/2015. An echo at that time had shown no vegetations and he was treated with 4 weeks of IV Ancef. No clear source of infxn seen on admit. CXR negative. Does not make urine so unable to obtain a UA/cx. Influenza neg. His right lower extremity dialysis site does not appear infected and his recent left thigh graft hematoma evacuation site looked unremarkable on admission.His dialysis catheter was changed during last admission in November. Blood cx's drawn at [facility] (1 from Catheter and 1 from arm). He was initiated on vancomycin and ceftriaxone at the dialysis center. Echocardiogram here without evidence of endocarditis. Continued to spike fever. Purulent oozing from his left groin was noted on 12/18. - Vascular surgery consulted. - Taken to the OR on 12/18 for I&D and excision of infected graft. - Blood cultures from his arms and HD cath with NGTD. - Wound culture with moderate growth staph aureus - Appreciate ID input. - C/w Ronit and Emilia for now. ESRD on hemodialysis/Hyponatremia/Hypokalemia: Has had problems with dialysis access and recent admission for left thigh graft pseudoaneurysm and perigraft hematoma. He is status post evacuation of hematoma and ligation of the graft by Dr. Buenrostro. The site looks good currently without a clear indication for worsening hematoma or infection. Dialysis access placed in his Right groin at that time. His dialysis catheter was changed during last admission in November. He gets dialysis Tuesday, , Tuesday and completed his dialysis on Tue. - Appreciate Nephrology consultation. - Na normalized. - Dialysis per Nephrology. History of upper extremity deep venous thrombosis His INR was supratherapeutic on admission. - Continued on coumadin. Hypertension: Stable. - Continue with lisinopril and Lopressor on nondialysis days - Hydralazine p.r.n. - Added Norvasc 5 mg on non HD days 12/18 due to ongoing HTN. Diet-controlled diabetes mellitus: His last HbA1c from 05/2014 was 5.1. - ISS Anemia of chronic disease: His hemoglobin seems to be stable around baseline of 9-10. - Follow Hgb post op. Diabetic retinopathy with legal blindness: Stable. DVT Prophylaxis: Warfarin Code: Full Code Disposition: C/w Abx. Follow wound cultures. Possibly to po Abx tomorrow, defer to ID. Resume Warfarin once cleared by sx. Home when cleared by ID and Sx. Physical Exam: Heart Rate: 77 Blood pressure 190/101, pulse 74, temperature 97.6 ??F (36.4 ??C), temperature source Oral, resp. rate 16, height 1.626 m (5' 4), weight 93.6 kg (206 lb 5.6 oz), SpO2 100 %. Filed Vitals: 12/18/15 0500 12/19/15 0600 12/20/15 0613 Weight: 91.8 kg (202 lb 6.1 oz) 93.1 kg (205 lb 4 oz) 93.6 kg (206 lb 5.6 oz) Vital Sign Ranges Temperature Temp Av.2 ??F (36.8 ??C) Min: 97.6 ??F (36.4 ??C) Max: 98.5 ??F (36.9 ??C) Blood pressure Systolic (24hrs), Av mmHg, Min:121 mmHg, Max:190 mmHg Diastolic (24hrs), Av mmHg, Min:66 mmHg, Max:101 mmHg Pulse Pulse Av.8 Min: 69 Max: 90 Respirations Resp Av Min: 16 Max: 16 Pulse oximetry SpO2 Av % Min: 100 % Max: 100 % Vital Signs with Ranges Temp: [97.6 ??F (36.4 ??C)-98.5 ??F (36.9 ??C)] 97.6 ??F (36.4 ??C) Pulse: [69-90] 74 Heart Rate: [74-82] 77 Resp: [16] 16 BP: (121-190)/(66-101) 190/101 mmHg SpO2: [100 %] 100 % I/O Last 3 Shifts: I/O last 3 completed shifts: In: 1890 [P.O.:1540; I.V.:350] Out: 1999 [Other:2000] I/O past 24 hours: Intake/Output Summary (Last 24 hours) at 12/21/15 0816 Last data filed at 12/21/15 0700 Gross per 24 hour Intake 2040 ml Output 2000 ml Net 40 ml GENERAL: Alert and oriented. NAD. HEENT: Normocephalic. EOMI. LUNGS: Clear to auscultation. No dyspnea at rest. HEART: Regular rate. Extremities perfused. ABDOMEN: Soft, nontender, and nondistended. Positive bowel sounds. Right groin HD cath. Left groin surgical site c/d/i. NEUROLOGIC: Moves extremities x4 on command. No acute focal neurologic abnormalities noted. Prior to Admission Medications: Prescriptions prior to admission Medication Sig Dispense Refill Last Dose ??? calcium acetate (PHOSLO) 667 MG CAPS Take 667 mg by mouth 3 times daily as needed (With snacks) PRN ??? WARFARIN SODIUM PO Take 5 mg by mouth every evening 12/15/2015 at Unknown time ??? vitamin B complex with vitamin C (VITAMIN B COMPLEX) TABS Take 1 tablet by mouth every evening 12/15/2015 at Unknown time ??? Calcium Acetate, Phos Binder, (CALCIUM ACETATE PO) Take 1,334 mg by mouth 3 times daily (with meals) Takes with meals and snacks (2 x 667mg tablet) 12/16/2015 at Unknown time ??? LISINOPRIL PO Take 20 mg by mouth daily Take on M, W, F, Leger (Non-dialysis days only) 12/16/2015 atUnknown time ??? bisacodyl (DULCOLAX) 5 MG EC tablet Take 10 mg by mouth See Admin Instructions Take on BID on M,W, F, [place] (Non-dialysis days only) 12/15/2015 at Unknown time ??? Cholecalciferol (VITAMIN D3 PO) Take 2,000 Units by mouth daily 12/16/2015 at Unknown time ??? Metoprolol Tartrate (LOPRESSOR PO) Take 100 mg by mouth 2 times daily In the AM and at Noon. Takes on M, W, F, [place] (Non-dialysis days only) 12/15/2015 at Unknown time ??? b kcuqvdr-Y-ytuog acid (NEPHROCAPS) 1 MG capsule Take 1 capsule by mouth daily (with dinner) 12/15/2015 at Unknown time ??? simvastatin (ZOCOR) 40 MG tablet Take 40 mg by mouth every evening 12/15/2015 at Unknown time Medications: Current Facility-Administered Medications Medication Last Rate ??? NaCl ??? Warfarin Therapy Reminder ??? - MEDICATION INSTRUCTIONS - Current Facility-Administered Medications Medication Dose Route Frequency ??? amLODIPine 5 mg Oral Once per day on Tue ??? sodium chloride (PF) 3 mL Intravenous Q8H ??? - MEDICATION INSTRUCTIONS for Dialysis Patients - Does not apply See Admin Instructions ??? insulin aspart 1-7 Units Subcutaneous TID AC ??? insulin aspart 1-5 Units Subcutaneous At Bedtime ??? B epwlapi-Z-fhqty acid 1 capsule Oral Daily with supper ??? calcium acetate 1,334 mg Oral TID w/meals ??? lisinopril (PRINIVIL,ZESTRIL) tablet 20 mg 20 mg Oral Once per day on Sun Tue ??? metoprolol (LOPRESSOR) tablet 100 mg 100 mg Oral 2 times per day on Tue ??? simvastatin 40 mg Oral QPM ??? cefTRIAXone 1 g Intravenous Q24H ??? vancomycin place watson - receiving intermittent dosing 1 each Does not apply See Admin Instructions Current Facility-Administered Medications Medication Dose Route Frequency ??? sodium chloride (PF) 3 mL Intravenous Q1H PRN ??? lidocaine BUFFERED 1 % 0.1-1 mL Intradermal Once PRN ??? oxyCODONE 5-10 mg Oral Q4H PRN ??? HYDROmorphone 0.3-0.5 mg Intravenous Q2H PRN ??? glucose 15-30 g Oral Q15 Min PRN Or ??? dextrose 25-50 mL Intravenous Q15 Min PRN Or ??? glucagon 1 mg Subcutaneous Q15 Min PRN ??? Warfarin Therapy Reminder 1 each Does not apply Continuous PRN ??? hydrALAZINE 10 mg Intravenous Q4H PRN ??? naloxone 0.1-0.4 mg Intravenous Q2 Min PRN ??? - MEDICATION INSTRUCTIONS - Does not apply Continuous PRN ??? acetaminophen 650 mg Oral Q4H PRN ??? senna-docusate 1-2 tablet Oral BID PRN ??? magnesium hydroxide 30 mL Oral Daily PRN ??? bisacodyl 10 mg Rectal Daily PRN ??? ondansetron 4 mg Oral Q6H PRN Or ??? ondansetron 4 mg Intravenous Q6H PRN ??? prochlorperazine 5-10 mg Intravenous Q6H PRN Or ??? prochlorperazine 5-10 mg Oral Q6H PRN Or ??? prochlorperazine 25 mg Rectal Q12H PRN Data: Lab data reviewed. Recent Labs Lab 12/20/15 0910 12/19/15 0811 12/18/15 0800 12/17/15 0812 HGB 8.5* -- 9.1* 9.4* MCV 81 -- 80 81 PLT 147* -- 118* 113* INR 2.31* 2.41* 2.76* 3.56* NA 137 130* 128* 129* POTASSIUM 3.1* 4.4 4.0 4.0 CHLORIDE 98 95 92* 92* CO2 31 26 24 27 BUN 11 50* 63* 47* CR 1.70* 8.35* 11.70* 9.43* ANIONGAP 8 9 12 10 JON 7.4* 8.4* 8.5 8.0* GLC 107* 132* 123* 179* Imaging: Imaging data reviewed. Dr. Koko Singh [facility] Pager [phone] Danis Kim MD - 12/20/2015 3:01 PM CST [facility] Hospitalist Progress Note Date of Service (when I saw the patient): 12/20/2015 Assessment and Plan Julio Cesar Sandhu is a 50-year-old male with past medical history significant for MSSA bacteremia,end-stage renal disease on hemodialysis, obstructive sleep apnea, hypertension, secondary hyperparathyroidism, deep venous thrombosis of upper extremity, problems with dialysis access with recent admission for a clotted left thigh dialysis graft and pseudoaneurysm requiring hematoma evacuation and ligation of the graft along with history of anemia of chronic disease who was sent from the dialysis center for fever and chills. Sepsis 2/2 Infected left PTFE dialysis graft - POD # 1 He does have history of MSSA bacteremia in the past when he was admitted in 08/2015. An echo at thattime had shown no vegetations and he was treated with 4 weeks of IV Ancef. No clear source of infxn seen on admit. CXR negative. Does not make urine so unable to obtain a UA/cx. Influenza neg. His right lower extremity dialysis site does not appear infected and his recent left thigh graft hematoma evacuation site looked unremarkable on admission. His dialysis catheter was changed during last admission in November. Blood cx's drawn at [facility] (1 from Catheter and 1 from arm). He was initiated on vancomycin and ceftriaxone at the dialysis center. Echocardiogram here without evidence of endocarditis. Continued to spike fever. - Purulent oozing from his left groin was noted on 12/18. - Vascular surgery consulted. - Taken to the OR on 12/18 for I&D and excision of infected graft. - Blood cultures from his arms and HD cath with NGTD. - Wound culture with moderate growth staph aureus - Appreciate ID. - C/w Vanco and Rocephin for now. ESRD on hemodialysis Hyponatremia Hypokalemia Has had problems with dialysis access and recent admission for left thigh graft pseudoaneurysm and perigraft hematoma. He is status post evacuation of hematoma and ligation of the graft by Dr. Buenrostro. The site looks good currently without a clear indication for worsening hematoma or infection. Dialysisaccess placed in his Right groin at that time. His dialysis catheter was changed during last admission in November. He gets dialysis Tuesday, , Tuesday and completed his dialysis on Tue. - Appreciate Nephrology consultation. - Will need to follow cultures from [facility] HD. - Na improving. - Follow K in am. Replaced in HD today. History of upper extremity deep venous thrombosis His INR was supratherapeutic on admission. - Currently 2.3. Held for his procedure 12/18. - Resume once cleared by vascular. - Follow INR. Hypertension We will continue with his lisinopril and Lopressor on nondialysis days and will also have hydralazine p.r.n. - Added Norvasc 5 mg on non HD days 12/18 due to ongoing HTN. Diet-controlled diabetes mellitus His last HbA1c from 05/2014 was 5.1. - Some hyperglycemia HOD #1 - RISS. Anemia of chronic disease His hemoglobin seems to be stable around baseline of 9-10. - Follow Hgb post op. Diabetic retinopathy with legal blindness DVT Prophylaxis: Warfarin Code Status: Full Code Disposition: Afebrile since surgery. C/w Abx. Follow wound cultures. Possibly to po Abx tomorrow. Resume Warfarin once cleared by sx. Maybe home tomorrow if cleared by ID and Sx. Danis Kim Interval History Afebrile overnight. No events reported. Denies any pain. -Data reviewed today: I reviewed all new labs and imaging results over the last 24 hours. I personally reviewed no images or EKG's today. Physical Exam Temp: 99 ??F (37.2 ??C) Temp src: Oral BP: 156/71 mmHg Pulse: 74 Heart Rate: 72 Resp: 18 SpO2: 100 %O2 Device: None (Room air) Oxygen Delivery: 2 LPM Filed Vitals: 12/18/15 0500 12/19/15 0600 12/20/15 0613 Weight: 91.8 kg (202 lb 6.1 oz) 93.1 kg (205 lb 4 oz) 93.6 kg (206 lb 5.6 oz) Vital Signs with Ranges Temp: [96 ??F (35.6 ??C)-99 ??F (37.2 ??C)] 99 ??F (37.2 ??C) Pulse: [69-90] 74 Heart Rate: [68-72] 72 Resp: [13-24] 18 BP: (121-196)/(66-92) 156/71 mmHg SpO2: [97 %-100 %] 100 % I/O last 3 completed shifts: In: 1200 [P.O.:350; I.V.:850] Out: 2009 [Other:2000; Blood:10] Gen: Patient in no acute distress. Appears comfortable. Heart: S1S2+, regular rate and rhythm, No murmurs. Lungs: Clear to auscultation, no wheezing, no rales. Abdomen: Soft, non tender, non distended, bowel sounds positive. Extremities: No edema. Right groin HD cath. Left groin surgical site CDI. Medications ??? heparin (porcine) 500 Units/hr (12/20/15 0835) ??? NaCl ??? Warfarin Therapy Reminder ??? - MEDICATION INSTRUCTIONS - ??? epoetin mauricio (EPOGEN,PROCRIT) inj ESRD 4,000 Units Intravenous See Admin Instructions ??? vancomycin (VANCOCIN) IV 1,500 mg Intravenous Once ??? amLODIPine 5 mg Oral Once per day on Sun Tue ??? sodium chloride (PF) 3 mL Intravenous Q8H ??? - MEDICATION INSTRUCTIONS for Dialysis Patients - Does not apply See Admin Instructions ??? insulin aspart 1-7 Units Subcutaneous TID AC ??? insulin aspart 1-5 Units Subcutaneous At Bedtime ??? B yzkjjqq-H-szfgs acid 1 capsule Oral Daily with supper ??? calcium acetate 1,334 mg Oral TID w/meals ??? lisinopril (PRINIVIL,ZESTRIL) tablet 20 mg 20 mg Oral Once per day on Sun Tue ??? metoprolol (LOPRESSOR) tablet 100 mg 100 mg Oral 2 times per day on Sun Tue ??? simvastatin 40 mg Oral QPM ??? cefTRIAXone 1 g Intravenous Q24H ??? vancomycin place watson - receiving intermittent dosing 1 each Does not apply See Admin Instructions Data Recent Labs Lab 12/20/15 0910 12/19/15 0811 12/18/15 0800 12/17/15 0812 12/16/15 1501 WBC 5.3 -- 8.9 9.3 8.9 HGB 8.5* -- 9.1* 9.4* 10.1* MCV 81 -- 80 81 81 PLT 147* -- 118* 113* 118* INR 2.31* 2.41* 2.76* 3.56* 3.71* NA 137 130* 128* 129* 131* POTASSIUM 3.1* 4.4 4.0 4.0 3.3* CHLORIDE 98 95 92* 92* 93* CO2 31 26 24 27 29 BUN 11 50* 63* 47* 25 CR 1.70* 8.35* 11.70* 9.43* 6.94* ANIONGAP 8 9 12 10 9 JON 7.4* 8.4* 8.5 8.0* 7.8* GLC 107* 132* 123* 179* 97 ALBUMIN -- -- -- -- 3.5 PROTTOTAL -- -- -- -- 7.5 BILITOTAL -- -- -- -- 0.6 ALKPHOS -- -- -- -- 139 ALT -- -- -- -- 16 AST -- -- -- -- 17 LIPASE -- -- -- -- 154 No results found for this or any previous visit (from the past 24 hour(s)). [employer] Mazin Singh MD - 12/20/2015 3:01 PM CST Note Infectious Disease Consult Service Progress Note Pt Name Julio Cesar Sandhu Date 12/20/2015 Notes / labs / imaging test results and other data were reviewed CHIEF COMPLAINT: REASON FOR VISIT FEVER HPI 50 yo hemodialysis pt w hx S aureus sepsis Aug 2015 Admitted now w febrile illness No (+) cultures yet CURRENT MED REVIEWD Prescription Medications as of 12/20/2015 calcium acetate (PHOSLO) 667 MG CAPS Take 667 mg by mouth 3 times daily as needed (With snacks) WARFARIN SODIUM PO Take 5 mg by mouth every evening vitamin B complex with vitamin C (VITAMIN B COMPLEX) TABS Take 1 tablet by mouth every evening Calcium Acetate, Phos Binder, (CALCIUM ACETATE PO) Take 1,334 mg by mouth 3 times daily (with meals) Takes with meals and snacks (2 x 667mg tablet) LISINOPRIL PO Take 20 mg by mouth daily Take on , , , [place] (Non-dialysis days only) bisacodyl (DULCOLAX) 5 MG EC tablet Take 10 mg by mouth See Admin Instructions Take on BID on , ,, (Non-dialysis days only) Cholecalciferol (VITAMIN D3 PO) Take 2,000 Units by mouth daily Metoprolol Tartrate (LOPRESSOR PO) Take 100 mg by mouth 2 times daily In the AM and at Noon. Takes on , , , (Non-dialysis days only) b ibdqcye-T-sjsps acid (NEPHROCAPS) 1 MG capsule Take 1 capsule by mouth daily (with dinner) simvastatin (ZOCOR) 40 MG tablet Take 40 mg by mouth every evening Facility Administered Medications as of 12/20/2015 0.9% sodium chloride BOLUS 250 mLs by Hemodialysis Machine route once 0.9% sodium chloride BOLUS Inject 250-1,000 mLs into the vein Once in dialysis 0.9% sodium chloride BOLUS Inject 100 mLs into the vein every 5 minutes as needed (see admin instructions) albumin human 5 % injection 250 mL Inject 250 mLs into the vein every hour as needed for other (seeadmini instructions) albumin human 25 % injection 50 mL Inject 50 mLs into the vein every hour as needed for other (see admin instructions) epoetin mauricio (EPOGEN,PROCRIT) injection 4,000 Units Inject 1 mL (4,000 Units) into the vein See Admin Instructions heparin (porcine) injection 500 Units 0.5 mLs (500 Units) by Hemodialysis Machine route Once in dialysis heparin 10,000 units/10 mL infusion (DIALYSIS USE) 500 Units/hr by Hemodialysis Machine route continuous heparin 1000 unit/mL DIALYSIS Cath Care Inject 3 mLs (3,000 Units) into the vein once as needed (ToRED lumen for dialysis catheter care POST RUN) heparin 1000 unit/mL DIALYSIS Cath Care Inject 3 mLs (3,000 Units) into the vein once as needed (ToBLUE lumen for dialysis catheter care POST RUN) vancomycin (VANCOCIN) 1500 mg in 0.9% NaCl 250 mL PREMIX Inject 250 mLs (1,500 mg) into the vein once amLODIPine (NORVASC) tablet 5 mg Take 1 tablet (5 mg) by mouth Once per day on Tue warfarin-No DOSE today 1 each no dose today (warfarin) sodium chloride (PF) 0.9% PF flush 3 mL Inject 3 mLs into the vein every hour as needed for line flush or post meds or blood draw sodium chloride (PF) 0.9% PF flush 3 mL Inject 3 mLs into the vein every 8 hours lidocaine BUFFERED 1 % solution 0.1-1 mL Inject 0.1-1 mLs into the skin once as needed (mild pain with VAD insertion or accessing implanted port.) 0.9% sodium chloride infusion Inject into the vein continuous oxyCODONE (ROXICODONE) immediate release tablet 5-10 mg Take 1-2 tablets (5-10 mg) by mouth every 4hours as needed for moderate to severe pain HYDROmorphone (PF) (DILAUDID) injection 0.3-0.5 mg Inject 0.3-0.5 mg into the vein every 2 hours asneeded for moderate to severe pain lactated ringers infusion (Discontinued) Inject into the vein continuous fentaNYL (SUBLIMAZE) injection 25-50 mcg (Discontinued) Inject 0.5-1 mLs (25-50 mcg) into the vein every 2 minutes as needed for other (acute pain) HYDROmorphone (DILAUDID) injection 0.3-0.5 mg (Discontinued) Inject 0.3-0.5 mg into the vein every 5 minutes as needed for moderate to severe pain (acute pain. May administer if RR is > 10 ) ondansetron (ZOFRAN-ODT) disintegrating tablet 4 mg (Discontinued) Take 1 tablet (4 mg) by mouth every 30 minutes as needed for nausea Linked Group 1: Or Linked Group Details ondansetron (ZOFRAN) injection 4 mg (Discontinued) Inject 2 mLs (4 mg) into the vein every 30 minutes as needed for nausea Linked Group 1: Or Linked Group Details dexamethasone (DECADRON) injection 4 mg (Discontinued) Inject 1 mL (4 mg) into the vein once as needed for other (nausea?(If not administered in the OR and Post Op Nausea and Vomiting persists after droperidol dosing if ordered)) dexamethasone (DECADRON) injection 4 mg (Discontinued) Inject 1 mL (4 mg) into the vein once as needed for nausea (nausea?(If not administered in the OR and Post Op Nausea and Vomiting persists after droperidol dosing if ordered)) dimenhyDRINATE (DRAMAMINE) injection 25 mg (Discontinued) Inject 0.5 mLs (25 mg) into the vein onceas needed for sleep (nausea) 0.9% sodium chloride infusion (Discontinued) continuous prn propofol (DIPRIVAN) injection 10 mg/mL vial (Discontinued) as needed fentaNYL (SUBLIMAZE) injection (Discontinued) as needed for moderate to severe pain lidocaine injection 2% (MDV) (Discontinued) as needed ondansetron (ZOFRAN) injection (Discontinued) as needed for nausea or vomiting succinylcholine (ANECTINE) injection (Discontinued) as needed ceFAZolin 1000 mg + gentamicin 120 mg + NaCl 0.9% 1000 mL Bag (Discontinued) as needed ceFAZolin 1000 mg + gentamicin 120 mg + NaCl 0.9% 1000 mL Bottle (Discontinued) as needed cefTRIAXone (ROCEPHIN) 1 g vial to attach to NS 100 ml bag or NS 50 ml bag for PEDS (Discontinued) as needed - MEDICATION INSTRUCTIONS for Dialysis Patients - See Admin Instructions glucose 40 % oral gel 15-30 g Take 15-30 g by mouth every 15 minutes as needed for low blood sugar Linked Group 2: Or Linked Group Details dextrose 50 % solution 25-50 mL Inject 25-50 mLs into the vein every 15 minutes as needed for low blood sugar Linked Group 2: Or Linked Group Details glucagon injection 1 mg Inject 1 mg Subcutaneous every 15 minutes as needed for low blood sugar (May repeat x 1 only) Linked Group 2: Or Linked Group Details insulin Aspart (NovoLOG) inj (RAPID ACTING) Inject 1-7 Units Subcutaneous 3 times daily (before meals) insulin Aspart (NovoLOG) inj (RAPID ACTING) Inject 1-5 Units Subcutaneous At Bedtime B owhukdc-U-kuvzi acid (NEPHROCAPS) capsule 1 mg Take 1 capsule (1 mg) by mouth daily (with dinner) calcium acetate (PHOSLO) capsule 1,334 mg Take 2 capsules (1,334 mg) by mouth 3 times daily (with meals) lisinopril (PRINIVIL,ZESTRIL) tablet 20 mg Take 1 tablet (20 mg) by mouth Once per day on Tue metoprolol (LOPRESSOR) tablet 100 mg Take 1 tablet (100 mg) by mouth 2 times per day on Tue simvastatin (ZOCOR) tablet 40 mg Take 1 tablet (40 mg) by mouth every evening Warfarin Therapy Reminder (Check START DATE - warfarin may be starting in the FUTURE) 1 each continuous prn cefTRIAXone (ROCEPHIN) 1 g vial to attach to NS 100 ml bag or NS 50 ml bag for PEDS Inject 1 g intothe vein every 24 hours hydrALAZINE (APRESOLINE) injection 10 mg Inject 0.5 mLs (10 mg) into the vein every 4 hours as needed for high blood pressure (give for SBP > 180) naloxone (NARCAN) injection 0.1-0.4 mg Inject 0.25-1 mLs (0.1-0.4 mg) into the vein every 2 minutesas needed for opioid reversal Patient is already receiving anticoagulation with heparin, enoxaparin, warfarin or other anticoagulant medication continuous prn acetaminophen (TYLENOL) tablet 650 mg Take 2 tablets (650 mg) by mouth every 4 hours as needed for mild pain or fever senna-docusate (SENOKOT-S;PERICOLACE) 8.6-50 MG per tablet 1-2 tablet Take 1-2 tablets by mouth 2 times daily as needed (constipation ) magnesium hydroxide (MILK OF MAGNESIA) suspension 30 mL Take 30 mLs by mouth daily as needed for constipation bisacodyl (DULCOLAX) suppository [address] 1 suppository (10 mg) rectally daily as needed for constipation ondansetron (ZOFRAN-ODT) disintegrating tablet 4 mg Take 1 tablet (4 mg) by mouth every 6 hours as needed for nausea Linked Group 3: Or Linked Group Details ondansetron (ZOFRAN) injection 4 mg Inject 2 mLs (4 mg) into the vein every 6 hours as needed for nausea or vomiting Linked Group 3: Or Linked Group Details prochlorperazine (COMPAZINE) injection 5-10 mg Inject 1-2 mLs (5-10 mg) into the vein every 6 hoursas needed for nausea or vomiting Linked Group 4: Or Linked Group Details prochlorperazine (COMPAZINE) tablet 5-10 mg Take 1-2 tablets (5-10 mg) by mouth every 6 hours as needed for vomiting Linked Group 4: Or Linked Group Details prochlorperazine (COMPAZINE) suppository [address] 1 suppository (25 mg) rectally every 12 hours as needed for nausea or vomiting Linked Group 4: Or Linked Group Details vancomycin place watson - receiving intermittent dosing 1 each See Admin Instructions fentaNYL (SUBLIMAZE) 0.05 MG/ML injection midazolam (VERSED) 1 MG/ML injection heparin 100 UNIT/ML Lock Flush SOLN Vital Signs: BP 156/71 mmHg Pulse 74 Temp(Src) 99 ??F (37.2 ??C) (Oral) Resp 18 Ht 1.626 m (5' 4) Wt 93.6 kg (206 lb 5.6 oz) BMI 35.40 kg/m2 SpO2 100% Data Cultures Blood December 15, , and All negative Groin December 18 (Left fistula) S aureus LABS WBC 5.3 12/20/2015 HGB 8.5 12/20/2015 PLT 147 12/20/2015 Recent Labs Lab Test 12/16/15 ALBUMIN 3.5 BILITOTAL 0.6 ALKPHOS 139 AST 17 ALT 16 ASSESSMENT & SUGGESTIONS Fever R50.9 Fever No surprise S aureus isolated from groin No fever now Peripheral WBC normal No (+) blood cultures Monitor blood cultures Cont ceftriaxone / vanco for now Mazin Singh MD Covering for [facility] Infectious Diseases [phone] Benjie Smith RN, RN - 12/20/2015 1:53 PM CST Pt dialyzed today for 3.5hrs against a k-3 dialysate bath via RFCVC. 350-400 qb achieved throughout.2000 units heparin given. CVC locked w/1:1000 heparin. Epo given. Seen by renal DrLorena During HD. VSS throughout. See Psychiatric for further details. Danis Kwok MD - 12/20/2015 9:39 AM CST Assessment and Plan: ESRD: HD for 3.5 h using R LONG-TERM, 2L UF, 400 BFR, 3K 353 HCO3. EPO during the run. Interval History: Hypertension: on lisinopril and metoprolol but these are only given on non- dialysis days. Review of Systems: Unable. Medications: ??? epoetin mauricio (EPOGEN,PROCRIT) inj ESRD 4,000 Units Intravenous See Admin Instructions ??? amLODIPine 5 mg Oral Once per day on Tue ??? sodium chloride (PF) 3 mL Intravenous Q8H ??? - MEDICATION INSTRUCTIONS for Dialysis Patients - Does not apply See Admin Instructions ??? insulin aspart 1-7 Units Subcutaneous TID AC ??? insulin aspart 1-5 Units Subcutaneous At Bedtime ??? B igsmina-Z-rjwze acid 1 capsule Oral Daily with supper ??? calcium acetate 1,334 mg Oral TID w/meals ??? lisinopril (PRINIVIL,ZESTRIL) tablet 20 mg 20 mg Oral Once per day on Tue ??? metoprolol (LOPRESSOR) tablet 100 mg 100 mg Oral 2 times per day on Tue ??? simvastatin 40 mg Oral QPM ??? cefTRIAXone 1 g Intravenous Q24H ??? vancomycin place watson - receiving intermittent dosing 1 each Does not apply See Admin Instructions ??? heparin (porcine) 500 Units/hr (12/20/15 0835) ??? NaCl ??? Warfarin Therapy Reminder ??? - MEDICATION INSTRUCTIONS - Current active medications and REPORT PROGRAMMER medications reviewed, see medication list for details. Physical Exam: Vitals were reviewed Patient Vitals for the past 24 hrs: BP Temp Temp src Pulse Heart Rate Resp SpO2 Weight 12/20/15 0930 133/79 mmHg - - 72 - - - - 12/20/15 0915 144/69 mmHg - - 76 - - - - 12/20/15 0900 166/82 mmHg - - 75 - - - - 12/20/15 0845 157/67 mmHg - - 75 - - - - 12/20/15 0830 187/90 mmHg - - 72 - - - - 12/20/15 0820 185/86 mmHg - - 71 - - - - 12/20/15 0810 193/88 mmHg - - 70 - - - - 12/20/15 0718 166/73 mmHg 99 ??F (37.2 ??C) Oral - 72 18 100 % - 12/20/15 0613 - - - - - - - 93.6 kg (206 lb 5.6 oz) 12/20/15 0602 167/75 mmHg 98.7 ??F (37.1 ??C) Oral - 72 18 100 % - 12/20/15 0034 164/77 mmHg 97.7 ??F (36.5 ??C) Oral - 69 16 97 % - 12/19/152005 169/81 mmHg 97.9 ??F (36.6 ??C) Oral - 68 16 100 % - 12/19/151954 - - - - - - 100 % - 12/19/15 194 196/88 mmHg 97.2 ??F (36.2 ??C) Temporal - 68 13 100 % - 12/19/15 1930 188/89 mmHg - - - 68 15 100 % - 12/19/15 1920 191/88 mmHg - - - 68 14 100 % - 12/19/15 1910 191/89 mmHg - - - 68 16 100 % - 12/19/15 1900 (!) 192/92 mmHg - - - 69 24 100 % - 12/19/15 1852 (!) 182/91 mmHg 96 ??F (35.6 ??C) Temporal - - 21 99 % - 12/19/15 1535 179/85 mmHg 97.3 ??F (36.3 ??C) Temporal - - - 98 % - 12/19/15 1107 - 98.7 ??F (37.1 ??C) - - - - - - Temp: [96 ??F (35.6 ??C)-99 ??F (37.2 ??C)] 99 ??F (37.2 ??C) Pulse: [70-76] 72 Heart Rate: [68-72] 72 Resp: [13-24] 18 BP: (133-196)/(67-92) 133/79 mmHg SpO2: [97 %-100 %] 100 % Temperatures: Current - Temp: 99 ??F (37.2 ??C); Max - Temp Av.8 ??F (36.6 ??C) Min: 96 ??F (35.6 ??C) Max: 99 ??F (37.2 ??C) Respiration range: Resp Av.1 Min: 13 Max: 24 Pulse range: Pulse Av Min: 70 Max: 76 Blood pressure range: Systolic (24hrs), Av mmHg, Min:133 mmHg, Max:196 mmHg ; Diastolic (24hrs), Av mmHg, Min:67 mmHg, Max:92 mmHg Pulse oximetry range: SpO2 Av.5 % Min: 97 % Max: 100 % I/O last 3 completed shifts: In: 1440 [P.O.:590; I.V.:850] Out: 10 [Blood:10] Intake/Output Summary (Last 24 hours) at 12/20/15 0939 Last data filed at 12/20/15 0600 Gross per 24 hour Intake 1200 ml Output 10 ml Net 1190 ml Alert, non - verbal R LONG-TERM with no redness or tenderness Left groin dressing over I and D site Wt Readings from Last 4 Encounters: 12/20/15 93.6 kg (206 lb 5.6 oz) 11/21/15 87 kg (191 lb 12.8 oz) 11/06/15 90.719 kg (200 lb) 08/17/15 94.9 kg (209 lb 3.5 oz) Data: NA 130 12/19/2015 NA 128 12/18/2015 NA 129 12/17/2015 CHLORIDE 95 12/19/2015 CHLORIDE 92 12/18/2015 CHLORIDE 92 12/17/2015 BUN 50 12/19/2015 BUN 63 12/18/2015 BUN 47 12/17/2015 POTASSIUM 4.4 12/19/2015 POTASSIUM 4.0 12/18/2015 POTASSIUM 4.0 12/17/2015 CO2 26 12/19/2015 CO2 24 12/18/2015 CO2 27 12/17/2015 CR 8.35 12/19/2015 CR 11.70 12/18/2015 CR 9.43 12/17/2015 Recent Labs Lab Test 12/20/15 0910 12/18/15 0800 12/17/15 0812 WBC 5.3 8.9 9.3 HGB 8.5* 9.1* 9.4* HCT 27.2* 28.3* 30.2* MCV 81 80 81 PLT 147* 118* 113* Recent Labs Lab Test 12/16/15 1501 AST 17 ALT 16 ALKPHOS 139 BILITOTAL 0.6 Recent Labs Lab Test 06/17/14 1800 MAG 2.1 Recent Labs Lab Test 08/09/15 1250 06/17/14 0731 06/15/14 0734 PHOS 2.3* 2.6 2.4* Recent Labs Lab Test 12/19/15 0811 12/18/15 0800 12/17/15 0812 JON 8.4* 8.5 8.0* Lab Results Component Value Date JON 8.4* 12/19/2015 Lab Results Component Value Date WBC 5.3 12/20/2015 HGB 8.5* 12/20/2015 HCT 27.2* 12/20/2015 MCV 81 12/20/2015 PLT 147* 12/20/2015 Lab Results Component Value Date NA 130* 12/19/2015 POTASSIUM 4.4 12/19/2015 CHLORIDE 95 12/19/2015 CO2 26 12/19/2015 GLC 132* 12/19/2015 Lab Results Component Value Date BUN 50* 12/19/2015 CR 8.35* 12/19/2015 Lab Results Component Value Date MAG 2.1 06/17/2014 Lab Results Component Value Date PHOS 2.3* 08/09/2015 CREATININE Date Value Ref Range Status 12/19/2015 8.35* 0.66 - 1.25 mg/dL Final 12/18/2015 11.70* 0.66 - 1.25 mg/dL Final 12/17/2015 9.43* 0.66 - 1.25 mg/dL Final 12/16/2015 6.94* 0.66 - 1.25 mg/dL Final 11/20/2015 11.80* 0.66 - 1.25 mg/dL Final 11/19/2015 10.00* 0.66 - 1.25 mg/dL Final Attestation: I have reviewed today's vital signs, notes, medications, labs and imaging. Seen on dialysis. Danis Anders MD [employer] Mike Aceves MD - 12/20/2015 8:24 AM CST PO#1 Afebrile, VSS Denies pain Dressings dry Doing well Start dressing changes [employer] Isis Dougherty RN - 12/19/2015 11:31 AM CST Updated pt's mother Arianna with pt's permission. Arianna informed of plan to OR today for I&D and likely wound vac over the weekend. Arianna and pt himself state that pt is competent to sign consent for surgery. Arianna concerned with when pt can come home. Danis Garcia MD - 12/19/2015 9:26 AM CST [facility] Hospitalist Progress Note Date of Service (when I saw the patient): 12/19/2015 Assessment and Plan Julio Cesar Sandhu is a 50-year-old male with past medical history significant for MSSA bacteremia,end-stage renal disease on hemodialysis, obstructive sleep apnea, hypertension, secondary hyperparathyroidism, deep venous thrombosis of upper extremity, problems with dialysis access with recent admission for a clotted left thigh dialysis graft and pseudoaneurysm requiring hematoma evacuation and ligation of the graft along with history of anemia of chronic disease who was sent from the dialysis center for fever and chills. Sepsis 2/2 Suspected L groin Abscess He does have history of MSSA bacteremia in the past when he was admitted in 08/2015. An echo at thattime had shown no vegetations and he was treated with 4 weeks of IV Ancef. No clear source of infxn seen on admit. CXR negative. Does not make urine so unable to obtain a UA/cx. His right lower extremity dialysis site does not appear infected and his recent left thigh graft hematoma evacuation site looked unremarkable. His dialysis catheter was changed during last admission in November. Blood cx's drawn at [facility] (1 from Catheter and 1 from arm). He was initiated on vancomycin and ceftriaxone at the dialysis center. Echocardiogram here without evidence of endocarditis. - Purulent oozing from his left groin was noted on 12/18. Suspect an underlying abscess. - Vascular surgery consulted. - Blood cultures from his arms and HD cath with NGTD. - Fever afternoon of 12/17 of 102.5. - Appreciate ID. - Influenza pending but agree that hx not suggestive. Suspect abscess as the source. ESRD on hemodialysis Hyponatremia Has had problems with dialysis access and recent admission for left thigh graft pseudoaneurysm and perigraft hematoma. He is status post evacuation of hematoma and ligation of the graft by Dr. Buenrostro. The site looks good currently without a clear indication for worsening hematoma or infection. Dialysisaccess placed in his Right groin at that time. His dialysis catheter was changed during last admission in November. He gets dialysis Tuesday, , Tuesday and completed his dialysis on Tue. - Appreciate Nephrology consultation. - Will need to follow cultures from [facility] HD. - Na improving. History of upper extremity deep venous thrombosis His INR was supratherapeutic on admission. Currently 2.41. - Will have pharmacy dose his Coumadin. Hypertension We will continue with his lisinopril and Lopressor on nondialysis days and will also have hydralazine p.r.n. - Added Norvasc 5 mg on non HD days due to ongoing HTN. Diet-controlled diabetes mellitus His last HbA1c from 05/2014 was 5.1. - Some hyperglycemia HOD #1 - RISS. Anemia of chronic disease His hemoglobin seems to be stable around baseline of 9-10. Diabetic retinopathy with legal blindness DVT Prophylaxis: Warfarin Code Status: Full Code Disposition: Vascular surgery consult. C/w current Abx. Follow cx's. Hold warfarin tonight for possible procedure. May need to reverse based on plan. > 35 min spent in pt care. > 50% in coordinating care and counseling. Danis Kim Interval History Fever yesterday afternoon. New oozing from L groin today. Suspect an underlying abscess. No pain or any other complaints. -Data reviewed today: I reviewed all new labs and imaging results over the last 24 hours. I personally reviewed no images or EKG's today. Physical Exam Temp: 100 ??F (37.8 ??C) Temp src: Oral BP: 185/81 mmHg Pulse: 65 Heart Rate: 86 Resp: 19 SpO2: 100 % O2 Device: None (Room air) Filed Vitals: 12/17/15 0538 12/18/15 0500 12/19/15 0600 Weight: 89.2 kg (196 lb 10.4 oz) 91.8 kg (202 lb 6.1 oz) 93.1 kg (205 lb 4 oz) Vital Signs with Ranges Temp: [98.4 ??F (36.9 ??C)-102.5 ??F (39.2 ??C)] 100 ??F (37.8 ??C) Pulse: [65-74] 65 Heart Rate: [86-89] 86 Resp: [16-19] 19 BP: (150-190)/(71-92) 185/81 mmHg SpO2: [95 %-100 %] 100 % I/O last 3 completed shifts: In: 1290 [P.O.:990; I.V.:300] Out: 1999 [Other:1999] Gen: Patient in no acute distress. Appears comfortable sitting in a chair. Heart: S1S2+, regular rate and rhythm, No murmurs. Lungs: Clear to auscultation, no wheezing, no rales. Abdomen: Soft, non tender, non distended, bowel sounds positive. Extremities: R groin HD cath in good position with no signs of infection. L groin warm to touch, oozing purulent fluid this am. No pain. Medications ??? Warfarin Therapy Reminder ??? - MEDICATION INSTRUCTIONS - ??? warfarin 5 mg Oral ONCE at 18:00 ??? - MEDICATION INSTRUCTIONS for Dialysis Patients - Does not apply See Admin Instructions ??? insulin aspart 1-7 Units Subcutaneous TID AC ??? insulin aspart 1-5 Units Subcutaneous At Bedtime ??? B yqwuyca-A-mhmpr acid 1 capsule Oral Daily with supper ??? calcium acetate 1,334 mg Oral TID w/meals ??? lisinopril (PRINIVIL,ZESTRIL) tablet 20 mg 20 mg Oral Once per day on Sun Tue ??? metoprolol (LOPRESSOR) tablet 100 mg 100 mg Oral 2 times per day on Sun Tue ??? simvastatin 40 mg Oral QPM ??? cefTRIAXone 1 g Intravenous Q24H ??? vancomycin place watson - receiving intermittent dosing 1 each Does not apply See Admin Instructions Data Recent Labs Lab 12/19/15 0811 12/18/15 0800 12/17/15 0812 12/16/15 1501 WBC -- 8.9 9.3 8.9 HGB -- 9.1* 9.4* 10.1* MCV -- 80 81 81 PLT -- 118* 113* 118* INR 2.41* 2.76* 3.56* 3.71* NA 130* 128* 129* 131* POTASSIUM 4.4 4.0 4.0 3.3* CHLORIDE 95 92* 92* 93* CO2 26 24 27 29 BUN 50* 63* 47* 25 CR 8.35* 11.70* 9.43* 6.94* ANIONGAP 9 12 10 9 JON 8.4* 8.5 8.0* 7.8* GLC 132* 123* 179* 97 ALBUMIN -- -- -- 3.5 PROTTOTAL -- -- -- 7.5 BILITOTAL -- -- -- 0.6 ALKPHOS -- -- -- 139 ALT -- -- -- 16 AST -- -- -- 17 LIPASE -- -- -- 154 No results found for this or any previous visit (from the past 24 hour(s)). [employer] Artis, Raúl Crenshaw MD - 12/19/2015 7:52 AM CST [facility] Infectious Disease Progress Note Date of Service (when I saw the patient): 12/19/2015 Assessment and Plan Julio Cesar Sandhu is a 50 year old male who was admitted on 12/16/2015. Impression: 50 y.o male with ESRD, DM, Cognitive deficit admitted from Dialysis unit after fevers and chills during dialysis. No other complaints. History of MSSA bacteremia. Recently on 11/19 - 11/20 had a clotted left thigh dialysis graft and pseudoaneurysm/ perigraft hematoma and ligation of the graft. And a new right sided dialysis catheter was placed at that time. Both the previous graft site on the left and new catheter site on the right thigh looks ok. Blood cultures were drawn from the dialysis center and are pending. Recommendations: Continue IV Ceftriaxone for now. Donatoo on-board. Will follow up on the blood cultures. No growth thus far. Will check influenza PCR, though clinically not suggestive. Raúl Wisdom MD Interval History Fever to 102 last night. Blood cxs negative. Denies PRICE, sore throat, rhinitis, cough, myalgias. Physical Exam Temp: 99.8 ??F (37.7 ??C) Temp src: Oral BP: 164/71 mmHg Pulse: 71 Heart Rate: 86 Resp: 16 SpO2: 100% O2 Device: None (Room air) Filed Vitals: 12/17/15 0538 12/18/15 0500 12/19/15 0600 Weight: 89.2 kg (196 lb 10.4 oz) 91.8 kg (202 lb 6.1 oz) 93.1 kg (205 lb 4 oz) Vital Signs with Ranges Temp: [98.4 ??F (36.9 ??C)-102.5 ??F (39.2 ??C)] 99.8 ??F (37.7 ??C) Pulse: [70-76] 71 Heart Rate: [86-89] 86 Resp: [16] 16 BP: (142-190)/(58-92) 164/71 mmHg SpO2: [94 %-100 %] 100 % GENERAL APPEARANCE: awake EYES: one eye appears grossly smaller is size, known blindness HENT: Mouth without ulcers or lesions NECK: no adenopathy RESP: lungs clear to auscultation CV: regular rates and rhythm, normal S1 S2 LYMPHATICS: normal ant/post cervical and supraclavicular nodes ABDOMEN: soft, nontender and bowel sounds normal MS: the dialysis catheter on the right femoral area appears to be slightly out, no gross redness erythema or discharge from around it. The area of previous graft on the left appears ok from outside. Medications ??? Warfarin Therapy Reminder ??? - MEDICATION INSTRUCTIONS - ??? - MEDICATION INSTRUCTIONS for Dialysis Patients - Does not apply See Admin Instructions ??? insulin aspart 1-7 Units Subcutaneous TID AC ??? insulin aspart 1-5 Units Subcutaneous At Bedtime ??? B utbpews-W-uetpb acid 1 capsule Oral Daily with supper ??? calcium acetate 1,334 mg Oral TID w/meals ??? lisinopril (PRINIVIL,ZESTRIL) tablet 20 mg 20 mg Oral Once per day on Sun Tue ??? metoprolol (LOPRESSOR) tablet 100 mg 100 mg Oral 2 times per day on Sun Tue ??? simvastatin 40 mg Oral QPM ??? cefTRIAXone 1 g Intravenous Q24H ??? vancomycin place watson - receiving intermittent dosing 1 each Does not apply See Admin Instructions Data All microbiology laboratory data reviewed. Recent Labs Lab Test 12/18/15 0800 12/17/15 0812 12/16/15 1501 WBC 8.9 9.3 8.9 HGB 9.1* 9.4* 10.1* HCT 28.3* 30.2* 31.8* MCV 80 81 81 PLT 118* 113* 118* Recent Labs Lab Test 12/18/15 0800 12/17/15 0812 12/16/15 1501 CR 11.70* 9.43* 6.94* No lab results found. Recent Labs Lab Test 12/18/15 1000 12/17/15 1945 12/17/15 1546 12/17/15 1502 12/17/15 1448 12/16/15 1714 12/16/15 0730 08/17/15 0814 08/16/15 0913 CULT No growth after 18 hours No growth after 2 days Duplicate request Charge credited No growth after 2 days No growth after 2 days No growth after 3 days Canceled, Test credited Duplicate request [id number] Canceled, Test credited Duplicate request [id number] No growth No growth [employer] Danis Kim MD - 12/18/2015 1:37 PM CST [facility] Hospitalist Progress Note Date of Service (when I saw the patient): 12/18/2015 Assessment and Plan Julio Cesar Sandhu is a 50-year-old male with past medical history significant for MSSA bacteremia,end-stage renal disease on hemodialysis, obstructive sleep apnea, hypertension, secondary hyperparathyroidism, deep venous thrombosis of upper extremity, problems with dialysis access with recent admission for a clotted left thigh dialysis graft and pseudoaneurysm requiring hematoma evacuation and ligation of the graft along with history of anemia of chronic disease who was sent from the dialysis center for fever and chills. Fever and chills SIRS with unclear source - r/o R groin HD cath as a source. He does have history of MSSA bacteremia in the past when he was admitted in 08/2015. An echo at thattime had shown no vegetations and he was treated with 4 weeks of IV Ancef. I do not see any clear source of infection at this time. CXR negative. Does not make urine so unable to obtain a UA/cx. His right lower extremity dialysis site does not appear infected and his recent left thigh graft hematoma evacuation site looks unremarkable. His dialysis catheter was changed during last admission in November. Blood cx's drawn at [facility] (1 from Catheter and 1 from arm). I do not see any blood cultures from the ER drawn. He was initiated on vancomycin and ceftriaxone at the dialysis center. - Will continue with that for now given his history of bacteremia in the past. - Afebrile overnight. No leukocytosis. Procalcitonin 0.81. - Blood cultures from his arms and HD cath with NGTD. - Appreciate ID following along. - Doubt clot as a source as his INR was supra therpeutic. - Echocardiogram without evidence of endocarditis. ESRD on hemodialysis Hyponatremia Has had problems with dialysis access and recent admission for left thigh graft pseudoaneurysm and perigraft hematoma. He is status post evacuation of hematoma and ligation of the graft by Dr. Buenrostro. The site looks good currently without a clear indication for worsening hematoma or infection. Dialysisaccess placed in his Right groin at that time. His dialysis catheter was changed during last admission in November. He gets dialysis Tuesday, , Tuesday and completed his dialysis on Tue. - Appreciate Nephrology consultation. - Will need to follow cultures from [facility] HD. - Follow bmp in am to monitor Na after HD. History of upper extremity deep venous thrombosis His INR was supratherapeutic on admission. Currently 3.56. - Will have pharmacy dose his Coumadin. Hypertension We will continue with his lisinopril and Lopressor on nondialysis days and will also have hydralazine p.r.n. Diet-controlled diabetes mellitus His last HbA1c from 05/2014 was 5.1. - Some hyperglycemia HOD #1 - RISS. Anemia of chronic disease His hemoglobin seems to be stable around baseline of 9-10. Diabetic retinopathy with legal blindness DVT Prophylaxis: Warfarin Code Status: Full Code Disposition: Pending culture results. NGTD. C/w current Abx. Anticipate another day to monitor cultures. Danis Kim Interval History Afebrile overnight. No leukocytosis. No issues with HD today. Does feel cold at the present moment. -Data reviewed today: I reviewed all new labs and imaging results over the last 24 hours. I personally reviewed the Echocardiogram image(s) showing No evidenc eof endocarditis. . Physical Exam Temp: 98.4 ??F (36.9 ??C) Temp src: Axillary BP: 159/76 mmHg Pulse: 71 Heart Rate: 81 Resp: 16 SpO2:99 % O2 Device: None (Room air) Filed Vitals: 12/16/15 1426 12/17/15 0538 12/18/15 0500 Weight: 90.7 kg (199 lb 15.3 oz) 89.2 kg (196 lb 10.4 oz) 91.8 kg (202 lb 6.1 oz) Vital Signs with Ranges Temp: [98.4 ??F (36.9 ??C)-99.5 ??F (37.5 ??C)] 98.4 ??F (36.9 ??C) Pulse: [70-77] 71 Heart Rate: [73-81] 81 Resp: [16] 16 BP: (142-190)/(58-92) 159/76 mmHg SpO2: [94 %-100 %] 99 % I/O last 3 completed shifts: In: 1090 [P.O.:990; I.V.:100] Out: - Gen: Patient in no acute distress. Appears comfortable lying in bed under the covers. Heart: S1S2+, regular rate and rhythm, No murmurs. Lungs: Clear to auscultation, no wheezing, no rales. Abdomen: Soft, non tender, non distended, bowel sounds positive. Extremities: No edema. Medications ??? Warfarin Therapy Reminder ??? - MEDICATION INSTRUCTIONS - ??? warfarin 3 mg Oral ONCE at 18:00 ??? vancomycin (VANCOCIN) IV 1,000 mg Intravenous Once ??? - MEDICATION INSTRUCTIONS for Dialysis Patients - Does not apply See Admin Instructions ??? insulin aspart 1-7 Units Subcutaneous TID AC ??? insulin aspart 1-5 Units Subcutaneous At Bedtime ??? B hnfqxns-F-uxwlk acid 1 capsule Oral Daily with supper ??? calcium acetate 1,334 mg Oral TID w/meals ??? lisinopril (PRINIVIL,ZESTRIL) tablet 20 mg 20 mg Oral Once per day on Tue ??? metoprolol (LOPRESSOR) tablet 100 mg 100 mg Oral 2 times per day on Sun Tue ??? simvastatin 40 mg Oral QPM ??? cefTRIAXone 1 g Intravenous Q24H ??? vancomycin place watson - receiving intermittent dosing 1 each Does not apply See Admin Instructions Data Recent Labs Lab 12/18/15 0800 12/17/15 0812 12/16/15 1501 WBC 8.9 9.3 8.9 HGB 9.1* 9.4* 10.1* MCV 80 81 81 PLT 118* 113* 118* INR 2.76* 3.56* 3.71* NA 128* 129* 131* POTASSIUM 4.0 4.0 3.3* CHLORIDE 92* 92* 93* CO2 24 27 29 BUN 63* 47* 25 CR 11.70* 9.43* 6.94* ANIONGAP 12 10 9 JON 8.5 8.0* 7.8* GLC 123* 179* 97 ALBUMIN -- -- 3.5 PROTTOTAL -- -- 7.5 BILITOTAL -- -- 0.6 ALKPHOS -- -- 139 ALT -- -- 16 AST -- -- 17 LIPASE -- -- 154 No results found for this or any previous visit (from the past 24 hour(s)). [employer] Danis Anders MD - 12/18/2015 10:04 AM CST Assessment and Plan: ESRD: running on a tunneled RFDC. 3K, 400 BFR, 33 HCO3, 3.5 h, set for 2 L UF. Tolerating well with high but stable BP. Getting EPO and hectorol on the run. Recently on 11/19 - 11/20 had a clotted left thigh dialysis graft and pseudoaneurysm/ perigraft hematoma. Underwent surgical resection. Interval History: ID: will send Blood cultures on dialysis today. Hx of F and C during dialysis. Hx of MSSA bacteremia. On rocephin and vanco. Hypertension: on lisinopril and metoprolol. Review of Systems: Non-conversant. Medications: ??? sodium chloride 0.9% 250 mL Hemodialysis Machine Once ??? epoetin mauricio (EPOGEN,PROCRIT) inj ESRD 4,000 Units Intravenous See Admin Instructions ??? doxercalciferol 4 mcg Intravenous See Admin Instructions ??? warfarin 3 mg Oral ONCE at 18:00 ??? - MEDICATION INSTRUCTIONS for Dialysis Patients - Does not apply See Admin Instructions ??? insulin aspart 1-7 Units Subcutaneous TID AC ??? insulin aspart 1-5 Units Subcutaneous At Bedtime ??? B binvcrj-M-ijihl acid 1 capsule Oral Daily with supper ??? calcium acetate 1,334 mg Oral TID w/meals ??? lisinopril (PRINIVIL,ZESTRIL) tablet 20 mg 20 mg Oral Once per day on Tue ??? metoprolol (LOPRESSOR) tablet 100 mg 100 mg Oral 2 times per day on Tue ??? simvastatin 40 mg Oral QPM ??? cefTRIAXone 1 g Intravenous Q24H ??? vancomycin place watson - receiving intermittent dosing 1 each Does not apply See Admin Instructions ??? heparin (porcine) 500 Units/hr (12/18/15 0700) ??? Warfarin Therapy Reminder ??? - MEDICATION INSTRUCTIONS - Current active medications and REPORT PROGRAMMER medications reviewed, see medication list for details. Physical Exam: Vitals were reviewed Patient Vitals for the past 24 hrs: BP Temp Temp src Pulse Heart Rate Resp SpO2 Weight 12/18/15 0945 174/76 mmHg - - 74 - - 97 % - 12/18/15 0930 172/74 mmHg - - 74 - - 98 % - 12/18/15 0915 170/74 mmHg - - 74 - - 98 % - 12/18/15 0900 152/58 mmHg - - 73 - - 98 % - 12/18/15 0845 142/58 mmHg - - 75 - - 100 % - 12/18/15 0830 176/78 mmHg - - 76 - - 94 % - 12/18/15 0815 172/82 mmHg - - 74 - - 99 % - 12/18/15 0800 188/88 mmHg - - 75 - - 99 % - 12/18/15 0756 171/87 mmHg 98.4 ??F (36.9 ??C) Oral 74 - 16 99 % - 12/18/15 0724 185/88 mmHg 98.6 ??F (37 ??C) Oral 77 - 16 100 % - 12/18/15 0500 - - - - - - - 91.8 kg (202 lb 6.1 oz) 12/18/15 0007 181/83 mmHg - - - - - - - 12/17/15 2243 190/90 mmHg - - - - - - - 12/17/15 2148 186/87 mmHg 99.5 ??F (37.5 ??C) Oral - 81 16 97 % - 12/17/15 1547 182/89 mmHg 99.3 ??F (37.4 ??C) Oral - 73 16 99 % - 12/17/15 1200 163/76 mmHg 99.6 ??F (37.6 ??C) Oral - 73 18 100 % - Temp: [98.4 ??F (36.9 ??C)-99.6 ??F (37.6 ??C)] 98.4 ??F (36.9 ??C) Pulse: [73-77] 74 Heart Rate: [73-81] 81 Resp: [16-18] 16 BP: (142-190)/(58-90) 174/76 mmHg SpO2: [94 %-100 %] 97 % Temperatures: Current - Temp: 98.4 ??F (36.9 ??C); Max - Temp Av.1 ??F (37.3 ??C) Min: 98.4 ??F(36.9 ??C) Max: 99.6 ??F (37.6 ??C) Respiration range: Resp Av.4 Min: 16 Max: 18 Pulse range: Pulse Av.6 Min: 73 Max: 77 Blood pressure range: Systolic (24hrs), Av mmHg, Min:142 mmHg, Max:190 mmHg ; Diastolic (24hrs), Av mmHg, Min:58 mmHg, Max:90 mmHg Pulse oximetry range: SpO2 Av.3 % Min: 94 % Max: 100 % I/O last 3 completed shifts: In: 1090 [P.O.:990; I.V.:100] Out: - Intake/Output Summary (Last 24 hours) at 12/18/15 1004 Last data filed at 12/18/15 0724 Gross per 24 hour Intake 1090 ml Output 0 ml Net 1090 ml Non-conversant Lungs with clear ant BS Cor RRR nl S1 S2 no M Left groin has scarring and induration from previous gortex loop: non-tender, no redness. RFDC without tenderness or redness. Wt Readings from Last 4 Encounters: 12/18/15 91.8 kg (202 lb 6.1 oz) 11/21/15 87 kg (191 lb 12.8 oz) 11/06/15 90.719 kg (200 lb) 08/17/15 94.9 kg (209 lb 3.5 oz) Data: NA 128 12/18/2015 NA 129 12/17/2015 NA 131 12/16/2015 CHLORIDE 92 12/18/2015 CHLORIDE 92 12/17/2015 CHLORIDE 93 12/16/2015 BUN 63 12/18/2015 BUN 47 12/17/2015 BUN 25 12/16/2015 POTASSIUM 4.0 12/18/2015 POTASSIUM 4.0 12/17/2015 POTASSIUM 3.3 12/16/2015 CO2 24 12/18/2015 CO2 27 12/17/2015 CO2 29 12/16/2015 CR 11.70 12/18/2015 CR 9.43 12/17/2015 CR 6.94 12/16/2015 Recent Labs Lab Test 12/18/15 0800 12/17/15 0812 12/16/15 1501 WBC 8.9 9.3 8.9 HGB 9.1* 9.4* 10.1* HCT 28.3* 30.2* 31.8* MCV 80 81 81 PLT 118* 113* 118* Recent Labs Lab Test 12/16/15 1501 AST 17 ALT 16 ALKPHOS 139 BILITOTAL 0.6 Recent Labs Lab Test 06/17/14 1800 MAG 2.1 Recent Labs Lab Test 08/09/15 1250 06/17/14 0731 06/15/14 0734 PHOS 2.3* 2.6 2.4* Recent Labs Lab Test 12/18/15 0800 12/17/15 0812 12/16/15 1501 JON 8.5 8.0* 7.8* Lab Results Component Value Date JON 8.5 12/18/2015 Lab Results Component Value Date WBC 8.9 12/18/2015 HGB 9.1* 12/18/2015 HCT 28.3* 12/18/2015 MCV 80 12/18/2015 PLT 118* 12/18/2015 Lab Results Component Value Date NA 128* 12/18/2015 POTASSIUM 4.0 12/18/2015 CHLORIDE 92* 12/18/2015 CO2 24 12/18/2015 GLC 123* 12/18/2015 Lab Results Component Value Date BUN 63* 12/18/2015 CR 11.70* 12/18/2015 Lab Results Component Value Date MAG 2.1 06/17/2014 Lab Results Component Value Date PHOS 2.3* 08/09/2015 CREATININE Date Value Ref Range Status 12/18/2015 11.70* 0.66 - 1.25 mg/dL Final 12/17/2015 9.43* 0.66 - 1.25 mg/dL Final 12/16/2015 6.94* 0.66 - 1.25 mg/dL Final 11/20/2015 11.80* 0.66 - 1.25 mg/dL Final 11/19/2015 10.00* 0.66 - 1.25 mg/dL Final 11/06/2015 5.94* 0.66 - 1.25 mg/dL Final Attestation: I have reviewed today's vital signs, notes, medications, labs and imaging. Seen on dialysis. Danis Anders MD [employer] Ezequiel Pierre MD - 12/18/2015 9:12 AM CST [facility] Infectious Disease Progress Note Date of Service (when I saw the patient): 12/18/2015 Assessment and Plan Julio Cesar Sandhu is a 50 year old male who was admitted on 12/16/2015. Impression: 50 y.o male with ESRD, DM, Cognitive deficit admitted from Dialysis unit after fevers and chills during dialysis. No other complaints. History of MSSA bacteremia. Recently on 11/19 - 11/20 had a clotted left thigh dialysis graft and pseudoaneurysm/ perigraft hematoma and ligation of the graft. And a new right sided dialysis catheter was placed at that time. Both the previous graft site on the left and new catheter site on the right thigh looks ok. Blood cultures were drawn from the dialysis center and are pending. He was started on IV Vancomycin and Ceftriaxone. He has been afebrile since. Recommendations: Continue IV Vancomycin and Ceftriaxone for now. Will follow up on the blood cultures. Ezequiel Pierre MD Interval History Afebrile No new microbiological data Physical Exam Temp: 98.4 ??F (36.9 ??C) Temp src: Oral BP: 142/58 mmHg Pulse: 73 Heart Rate: 81 Resp: 16 SpO2: 98 % O2 Device: None (Room air) Filed Vitals: 12/16/15 1426 12/17/15 0538 12/18/15 0500 Weight: 90.7 kg (199 lb 15.3 oz) 89.2 kg (196 lb 10.4 oz) 91.8 kg (202 lb 6.1 oz) Vital Signs with Ranges Temp: [98.4 ??F (36.9 ??C)-99.6 ??F (37.6 ??C)] 98.4 ??F (36.9 ??C) Pulse: [73-77] 73 Heart Rate: [73-81] 81 Resp: [16-18] 16 BP: (142-190)/(58-90) 142/58 mmHg SpO2: [94 %-100 %] 98 % GENERAL APPEARANCE: awake EYES: one eye appears grossly smaller is size, known blindness HENT: Mouth without ulcers or lesions NECK: no adenopathy RESP: lungs clear to auscultation CV: regular rates and rhythm, normal S1 S2 LYMPHATICS: normal ant/post cervical and supraclavicular nodes ABDOMEN: soft, nontender and bowel sounds normal MS: the dialysis catheter on the right femoral area appears to be slightly out, no gross redness erythema or discharge from around it. The area of previous graft on the left appears ok from outside. Medications ??? heparin (porcine) ??? Warfarin Therapy Reminder ??? - MEDICATION INSTRUCTIONS - ??? sodium chloride 0.9% 250 mL Hemodialysis Machine Once ??? sodium chloride 0.9% 250-1,000 mL Intravenous Once in dialysis ??? epoetin mauricio (EPOGEN,PROCRIT) inj ESRD 4,000 Units Intravenous See Admin Instructions ??? doxercalciferol 4 mcg Intravenous See Admin Instructions ??? heparin (porcine) 500 Units Hemodialysis Machine Once in dialysis ??? - MEDICATION INSTRUCTIONS for Dialysis Patients - Does not apply See Admin Instructions ??? insulin aspart 1-7 Units Subcutaneous TID AC ??? insulin aspart 1-5 Units Subcutaneous At Bedtime ??? B zkenehy-V-hknie acid 1 capsule Oral Daily with supper ??? calcium acetate 1,334 mg Oral TID w/meals ??? lisinopril (PRINIVIL,ZESTRIL) tablet 20 mg 20 mg Oral Once per day on Tue ??? metoprolol (LOPRESSOR) tablet 100 mg 100 mg Oral 2 times per day on Tue ??? simvastatin 40 mg Oral QPM ??? cefTRIAXone 1 g Intravenous Q24H ??? vancomycin place watson - receiving intermittent dosing 1 each Does not apply See Admin Instructions Data All microbiology laboratory data reviewed. Recent Labs Lab Test 12/18/15 0800 12/17/15 0812 12/16/15 1501 WBC 8.9 9.3 8.9 HGB 9.1* 9.4* 10.1* HCT 28.3* 30.2* 31.8* MCV 80 81 81 PLT 118* 113* 118* Recent Labs Lab Test 12/18/15 0800 12/17/15 0812 12/16/15 1501 CR 11.70* 9.43* 6.94* No lab results found. Recent Labs Lab Test 12/17/15 1945 12/17/15 1546 12/17/15 1502 12/17/15 1448 12/16/15 1714 12/16/15 0730 08/17/15 0814 08/16/15 0913 08/15/15 0345 CULT No growth after 8 hours Duplicate request Charge credited No growth after 16 hours No growth after 13 hours No growth after 2 days Canceled, Test credited Duplicate request [id number] Canceled, Test credited Duplicate request [id number] No growth No growth No growth [employer] Roberta Schmitz RN - 12/18/2015 7:15 AM CST POTASSIUM 4.0 12/17/2015 HGB 9.4 12/17/2015 All machine safety checks completed and passed. Total chlorine checks less than 0.1ppm All connections secured, saline line double clamped. Venous and arterial parameters set Report rec'd from Rachel Flores RN Rec'd pt per w/c acc'd by transport team. Consent obtained for dialysis Rx this hospitalization. Good circulation to fistula arm. Time out taken. Dialysis started with good flows from Right femoral tunneled catheter. Pt ran 3.5 hours on a K 3 bath, with 2L removed. Blood flow rate of 400 ml/min was obtained. PRE-WEIGHT:91.8kgs, POST-WT 89.8kgs. Complications: None. Education regarding ESRD given to patient with good understanding. Dressing intact to IJ catheter. Catheter Access: Aseptic prep done for both on/off. Blood cultures sent from femoral line. Total Heparin given: 1500 units Meds given: Epogen and Hectorol. Dr. Anders visited pt during run. Transducers checked Q 15 minutes, remain clear throughout Rx. Machine water alarms in place and functioning. Total blood volume processed:76.4L Patient dialyzes at [place] [facility] T-Th-Sat. POST ASSESSMENTS: Skin warm and dry, alert, denies discomfort, Lungs clear, Resp rate regular, apical rate regular. No change of edema. See flowsheet in [facility] for further details. Report given to Mary Johnson RN. Ariadne Schmitz RN [facility] [employer] Josue Byrnes RN - 12/17/2015 8:23 PM CST Dialysis nurse consult to draw blood cultures from catheter. 1 set of cultures sent from red and blue ports. There was concern about catheter placement so I also did a dressing change. Sutures still inplace at hub of catheter and anchored to skin so catheter is still in original position. I tried to milk the tract of the catheter to check for drainage. None came. There is no swelling that I can detect. When asked if it hurt when I pressed on tract patient said kind of but did not appear to be in pain. [employer] Danis Kim MD - 12/17/2015 2:29 PM CST [facility] Hospitalist Progress Note Date of Service (when I saw the patient): 12/17/2015 Assessment and Plan Julio Cesar Sandhu is a 50-year-old male with past medical history significant for MSSA bacteremia,end-stage renal disease on hemodialysis, obstructive sleep apnea, hypertension, secondary hyperparathyroidism, deep venous thrombosis of upper extremity, problems with dialysis access with recent admission for a clotted left thigh dialysis graft and pseudoaneurysm requiring hematoma evacuation and ligation of the graft along with history of anemia of chronic disease who was sent from the dialysis center for fever and chills. Fever and chills SIRS with unclear source - r/o R groin HD cath as a source. He does have history of MSSA bacteremia in the past when he was admitted in 08/2015. An echo at thattime had shown no vegetations and he was treated with 4 weeks of IV Ancef. I do not see any clear source of infection at this time. CXR negative. Does not make urine so unable to obtain a UA/cx. His right lower extremity dialysis site does not appear infected and his recent left thigh graft hematoma evacuation site looks unremarkable. His dialysis catheter was changed during last admission in November. Blood cx's drawn at [facility] (1 from Catheter and 1 from arm). I do not see any blood cultures from the ER drawn. He was initiated on vancomycin and ceftriaxone at the dialysis center. - Will continue with that for now given his history of bacteremia in the past. - Afebrile overnight. No leukocytosis. Procalcitonin 0.81. - Repeat blood cultures re-ordered today. Trying to obtain one from the HD cath site. - Will have ID see him. - Doubt clot as a source as his INR was supra therpeutic. ESRD on hemodialysis Hyponatremia Has had problems with dialysis access and recent admission for left thigh graft pseudoaneurysm and perigraft hematoma. He is status post evacuation of hematoma and ligation of the graft by Dr. Buenrostro. The site looks good currently without a clear indication for worsening hematoma or infection. Dialysisaccess placed in his Right groin at that time. His dialysis catheter was changed during last admission in November. He gets dialysis [place], , Tuesday and completed his dialysis on Tue. - Will have Nephrology consultation for continued dialysis in the hospital. - Will need to follow cultures from [facility] HD. - Na 129<--131. History of upper extremity deep venous thrombosis His INR was supratherapeutic on admission. Currently 3.56. - Will have pharmacy dose his Coumadin. Hypertension We will continue with his lisinopril and Lopressor on nondialysis days and will also have hydralazine p.r.n. Diet-controlled diabetes mellitus His last HbA1c from 05/2014 was 5.1. - Some hyperglycemia this am. - RISS> Anemia of chronic disease His hemoglobin seems to be stable around baseline of 9-10. Diabetic retinopathy with legal blindness DVT Prophylaxis: Warfarin Code Status: Full Code Disposition: Will repeat an echocardiogram. Repeat blood cx's from cath and arm. Follow cx results form [facility]. Will ask ID for their opinion on his line. Danis Kim Interval History No overnight events. Vitals stable. Afebrile today. Denies any complaints. -Data reviewed today: I reviewed all new labs and imaging results over the last 24 hours. I personally reviewed no images or EKG's today. Physical Exam Temp: 99.7 ??F (37.6 ??C) Temp src: Oral BP: 181/90 mmHg Heart Rate: 81 Resp: 16 SpO2: 100 % O2 Device: None (Room air) Filed Vitals: 12/16/15 1426 12/17/15 0538 Weight: 90.7 kg (199 lb 15.3 oz) 89.2 kg (196 lb 10.4 oz) Vital Signs with Ranges Temp: [99.7 ??F (37.6 ??C)-102.7 ??F (39.3 ??C)] 99.7 ??F (37.6 ??C) Heart Rate: [75-85] 81 Resp: [16] 16 BP: (148-186)/(67-90) 181/90 mmHg SpO2: [96 %-100 %] 100 % I/O last 3 completed shifts: In: 500 [P.O.:500] Out: - Gen: Patient in no acute distress. Appears comfortable sitting up in a chair. Heart: S1S2+, regular rate and rhythm, No murmurs. Lungs: Clear to auscultation, no wheezing, no rales. Abdomen: Soft, non tender, non distended, bowel sounds positive. Extremities: No edema. R groin cath site looks clean. Medications ??? Warfarin Therapy Reminder ??? - MEDICATION INSTRUCTIONS - ??? - MEDICATION INSTRUCTIONS for Dialysis Patients - Does not apply See Admin Instructions ??? warfarin-No DOSE today 1 each Does not apply no dose today (warfarin) ??? B yshlzkp-B-vugde acid 1 capsule Oral Daily with supper ??? calcium acetate 1,334 mg Oral TID w/meals ??? lisinopril (PRINIVIL,ZESTRIL) tablet 20 mg 20 mg Oral Once per day on Sun Tue ??? metoprolol (LOPRESSOR) tablet 100 mg 100 mg Oral 2 times per day on Tue ??? simvastatin 40 mg Oral QPM ??? cefTRIAXone 1 g Intravenous Q24H ??? vancomycin place watson - receiving intermittent dosing 1 each Does not apply See Admin Instructions Data Recent Labs Lab 12/17/15 0812 12/16/15 1501 WBC 9.3 8.9 HGB 9.4* 10.1* MCV 81 81 PLT 113* 118* INR 3.56* 3.71* NA 129* 131* POTASSIUM 4.0 3.3* CHLORIDE 92* 93* CO2 27 29 BUN 47* 25 CR 9.43* 6.94* ANIONGAP 10 9 JON 8.0* 7.8* GLC 179* 97 ALBUMIN -- 3.5 PROTTOTAL -- 7.5 BILITOTAL -- 0.6 ALKPHOS -- 139 ALT -- 16 AST -- 17 LIPASE -- 154 Recent Results (from the past 24 hour(s)) XR Chest 2 Views Narrative XR CHEST 2 VW 12/16/2015 3:41 PM HISTORY: Chest Pain, Shortness of Breath Impression IMPRESSION: Negative. SHAHID BRANTLEY MD [employer] documented in this encounter H&P Notes Enrike Navarro MD - 12/16/2015 5:19 PM CST PRIMARY CARE PHYSICIAN: Dr. Cornell Butt. CHIEF COMPLAINT: Sent from dialysis for fever. HISTORY OF PRESENT ILLNESS: History is slightly limited from the patient as he seems to be a poor historian and is somnolent upon exam. Mr. Julio Cesar Sandhu is a 50-year-old male with a past medicalhistory significant for ESRD on hemodialysis, SHIRLEY, hypertension, secondary hyperparathyroidism, vitamin D deficiency, history of DVT of upper extremity, legal blindness, anemia of chronic disease and recent admission for clotted left thigh dialysis graft and pseudoaneurysm and PDA graft hematoma who was sent from dialysis for fever of 102 degrees Fahrenheit. He gets Tuesday, , Tuesday dialysis at [facility] and today he was apparently having some subjective fever and chills. He was noted to have a temperature of 102 to 103 Fahrenheit and he was sent to the ER for further evaluation. He denies any headache, no nausea or vomiting, no chest pain or shortness of breath. Denies any pain in abdomen. Reports a normal bowel habit. He still makes little urine. Of note, the patient was recently in hospital from 11/19 to 11/21/2015 for a clotted left thigh dialysis graft and pseudoaneurysm/perigraft hematoma and underwent evacuation of hematoma and ligation ofgraft. His lower extremity dialysis catheter was replaced at that time and he was resumed on his Coumadin. Mr. Sandhu also has a history of MSSA bacteremia when he was admitted in August. Again, no source was found at that time and he was treated with IV Ancef for 4 weeks. An echocardiogram done atthat time did not show any agitation. In the ER he was seen by Dr. Perez. Blood cultures apparently were sent from dialysis center. Another set of blood culture, 1 including from the right lower extremity dialysis access was ordered in the ER. He has received vancomycin and ceftriaxone at the dialysis center. REVIEW OF SYSTEMS: A 10-point review of systems was done and was negative apart from those mentionedin the history of present illness. PAST MEDICAL HISTORY: 1. ESRD on hemodialysis. 2. Problems with dialysis access with recent admission for clot at left thigh dialysis graft and pseudoaneurysm/perigraft hematoma, status post evacuation of hematoma and ligation of graft on 11/19/2015. 3. Hypertension. 4. Dyslipidemia. 5. Anemia of chronic disease. 6. History of an upper extremity DVT, on chronic anticoagulation. 7. Secondary hyperparathyroidism. 8. Vitamin D deficiency. 9. Diet-controlled type 2 diabetes mellitus. 10. Background diabetic retinopathy. 11. Legal blindness. MEDICATIONS PRIOR TO ADMISSION: 1. PhosLo 667 mg 3 times daily as needed with snacks. 2. Warfarin 5 mg every evening. 3. Vitamin B complex daily. 4. PhosLo 1334 mg 3 times daily with meals. 5. Lisinopril 20 mg daily on nondialysis days that is Tuesday, Tuesday, Tuesday, Tuesday. 6. Bisacodyl as needed. 7. Vitamin D3 2000 units daily. 8. Lopressor 100 mg b.i.d. on nondialysis days. 9. Nephrocaps 1 capsule daily. 10. Simvastatin 40 mg daily. ALLERGIES: Aspirin. SOCIAL HISTORY: He denies smoking, alcohol or illicit drug use. His aunt is a legal power of associate attorney and medical decision maker. FAMILY HISTORY: Maternal grandmother had colon cancer. PHYSICAL EXAMINATION: GENERAL: The patient is conscious but somnolent, lying comfortably in bed in no apparent distress. VITAL SIGNS: Temperature maximum of 100.2, at the dialysis center reportedly it was 102, heart rate of 76, blood pressure 186/85, saturation 100% on room air. HEENT: Pupils are equal and reactive to light and accommodation. Extraocular movements are intact. Oral mucosa is moist. NECK: Supple, no lymphadenopathy, no raised JVD, no nuchal rigidity. RESPIRATORY: Lung sounds bilaterally clear to auscultation, no wheezes or crepitation. CARDIOVASCULAR: Normal S1, S2, regular rate and rhythm, no murmur. ABDOMEN: Soft, nontender, nondistended, no guarding, rigidity or rebound tenderness. LOWER EXTREMITIES: With no edema. He has a right dialysis catheter in the right groin. There is no surrounding erythema or purulence at dialysis access site on the left thigh. He has a scar from recenthematoma evacuation. There is no significant erythema or tenderness. NEUROLOGIC: No focal neurological deficits noted. Cranial nerves II-XII grossly intact. LABORATORY DATA: BMP with sodium of 131, potassium of 3.3, BUN 25, creatinine of 6.94. LFTs are unremarkable. CBC with WBC of 8.9, hemoglobin of 10.1, platelets 118. INR 3.71. Chest x-ray reviewed by me shows no acute infiltrates, effusions or pneumothorax. Blood cultures are pending. UA and culture is pending. ASSESSMENT AND PLAN: Mr. Julio Cesar Sandhu is a 50-year-old male with past medical history significant for MSSA bacteremia, end-stage renal disease on hemodialysis, obstructive sleep apnea, hypertension, secondary hyperparathyroidism, deep venous thrombosis of upper extremity, problems with dialysisaccess with recent admission for a clotted left thigh dialysis graft and pseudoaneurysm requiring hematoma evacuation and ligation of the graft along with history of anemia of chronic disease who was sent from the dialysis center for fever and chills. 1. Fever and chills, likely sepsis with unclear source. He does have history of MSSA bacteremia in the past when he was admitted in 08/2015. An echo at that time had shown no vegetations and he was treated with 4 weeks of IV Ancef. I do not see any clear source of infection at this time. We are awaiting on the urine culture and blood culture. His right lower extremity dialysis site does not appear infected and his recent left thigh graft hematoma evacuation site looks unremarkable. He was initiated on vancomycin and ceftriaxone at the dialysis center. Will continue with that for now given his history of bacteremia in the past. Will await blood cultures, one of which was drawn from the dialysis access site. His dialysis catheter was changed during last admission in November. 2. History of upper extremity deep venous thrombosis. His INR is supratherapeutic. Will have pharmacy dose his Coumadin. 3. Problems with dialysis access and recent admission for left thigh graft pseudoaneurysm and perigraft hematoma. He is status post evacuation of hematoma and ligation of the graft by Dr. Buenrostro. The site looks good currently without a clear indication for worsening hematoma or infection. 4. ESRD on hemodialysis. He gets dialysis Tuesday, , Tuesday and completed his dialysis today. Will have Nephrology consultation for continued dialysis in the hospital. 5. Hypertension. We will continue with his lisinopril and Lopressor on nondialysis days and will also have hydralazine p.r.n. 6. Diet-controlled diabetes mellitus. His last HbA1c from 05/2014 was 5.1. Will defer blood sugar monitoring at this time. 7. Diabetic retinopathy with legal blindness. 8. Anemia of chronic disease. His hemoglobin seems to be stable around baseline of 9-10. 9. Deep venous thrombosis prophylaxis: He will be on full dose anticoagulation for history of deep venous thrombosis. 10. Code status: Full code. Given the concern for sepsis will admit the patient as inpatient. ENRIKE NAVARRO MD MT: PD Name: JULIO CESAR SANDHU MRN: [id number] Account: [id number] : 1965 Admitted: [id number] Document: [id number] documented in this encounter Consult Notes Alejandro Emerson MD - 12/22/2015 8:32 AM CDTAssociated Order(s): NEPHROLOGY IP CONSULT Done by Dr. Her. Mike Aceves MD - 12/19/2015 10:37 AM CSTAssociated Order(s): VASCULAR SURGERY IP CONSULT Vascular Surgery Initial Consult December 19, 2015 Julio Cesar Sandhu Date of : 1965 Date of Admission:12/16/2015 Primary care provider: Cornell Butt Requesting physician: Enrike Navarro MD ASSESSMENT AND RECOMMENDATIONS: #1 Left thigh abscess No imaging necessary. Plan for OR debridement today. I&D today, likely wound vac over weekend or tomorrow. Pre-op orders in place. Discussed with Dr. Aceves, attending coal gasification technician. HISTORY OF PRESENT ILLNESS: Julio Cesar Sandhu is a 50 year old who has had multiple revisions and ultimate ligation of his procol graft on 11/19/2014 who presented to the hospital with fevers and chills. He was feeling very poorly, unable to tell me length or duration, and was found to have purulent drainage from his left thighsurgical site. Vascular surgery was consulted to render an opinion. WBC 9.3. Started on broad-spectrum abx. The patient was unable to provide an accurate history of when the wound started draining. There is no foul smell. It is indurated. The foot remains warm. The patient's WBC is 9.3. He is on dialysis, dialyzing T-Th-Sat. PMH: Past Medical History Diagnosis Date ??? Hypertension ??? Anemia ??? Retinopathy ??? Kidney disease ??? Kidney disease ??? Hyperkalemia ??? ESRD (end stage renal disease) ([facility]) dialysis T-TH-Sat ??? Blind ??? DVT (deep venous thrombosis) ([facility]) ??? Orthostasis ??? Diabetes mellitus ([facility]) ??? Syncope ??? Hypertension ??? A-V fistula ([facility]) left forearm ??? Hyperlipemia ??? Cognitive deficits ??? Anemia ??? Sleep apnea CPAP ??? Chronic in-center hemodialysis status ([facility]) ??? Hyperlipidaemia PSH: Past Surgical History Procedure Laterality Date ??? Av fistula or graft arterial ??? Abdomen surgery ??? Genitourinary surgery TURP,CIRCUMCISION ??? Create fistula arteriovenous upper extremity 10/20/2011 Procedure:CREATE FISTULA ARTERIOVENOUS UPPER EXTREMITY; VEIN PATCH RIGHT ARM ARTERIOVENOUS FISTULA WITH BOVINE PATCH; Surgeon:JAXON BUENROSTRO; Location:[facility] OR ??? Create graft loop arteriovenous lower extremity 05/03/2012 Procedure: CREATE GRAFT LOOP ARTERIOVENOUS LOWER EXTREMITY; RIGHT GROIN LOOP GRAFT WITH CADAVER FEMORAL ARTERY; Surgeon: Jaxon Buenrostro MD; Location: [facility] OR ??? Insert catheter venous translumbar 08/08/2012 Procedure: INSERT CATHETER VENOUS TRANSLUMBAR; LUMBAR TUNNEL CATH PLACEMENT.; Surgeon: Michele Fuentes MD; Location: [facility] OR ??? Bypass graft femoropopliteal 08/09/2012 Procedure: BYPASS GRAFT FEMOROPOPLITEAL; REDO RIGHT PROFUNDUS FEMORAL TO COMMON FEMORAL ACCESS GRAFT WITH PTFE (POLY TETRA FLOROETHELINE GRAFT), REMOVAL COMMON FEMORAL VEIN STENT, GRAFT EMBOLECTOMY; Surgeon: Jaxon Buenrostro MD; Location: [facility] OR ??? Thrombectomy lower extremity 08/09/2012 Procedure: THROMBECTOMY LOWER EXTREMITY;; Surgeon: Jaxon Buenrostro MD; Location: [facility] OR ??? Create fistula arteriovenous lower extremity 06/20/2013 Procedure: CREATE FISTULA ARTERIOVENOUS LOWER EXTREMITY; LEFT GROIN PTFE DIALYSIS ACCESS; Surgeon: Jaxon Buenrostro MD; Location: [facility] OR ??? Revision fistula arteriovenous lower extremity 05/08/2014 Procedure: REVISION FISTULA ARTERIOVENOUS LOWER EXTREMITY; Surgeon: Jaxon Buenrostro MD; Location: [facility] ??? Revision fistula arteriovenous lower extremity Left 06/04/2014 Procedure: REVISION FISTULA ARTERIOVENOUS LOWER EXTREMITY; Surgeon: Jaxon Buenrostro MD; Location: [facility] ??? Irrigation and debridement lower extremity, combined Left 06/04/2014 Procedure: COMBINED IRRIGATION AND DEBRIDEMENT LOWER EXTREMITY; Surgeon: Jaxon Buenrostro MD; Location: [facility] ??? C place cath av dialysis shunt left thigh 05/23 ??? Create fistula arteriovenous lower extremity Left 07/02/2015 Procedure: CREATE FISTULA ARTERIOVENOUS LOWER EXTREMITY; Surgeon: Jaxon Buenrostro MD; Location: [facility] ??? Create graft loop arteriovenous lower extremity Left 08/13/2015 Procedure: CREATE GRAFT ARTERIOVENOUS LOWER EXTREMITY; Surgeon: Jaxon Buernostro MD; Location: [facility] ??? Revision fistula arteriovenous lower extremity Left 11/19/2015 Procedure: REVISION FISTULA ARTERIOVENOUS LOWER EXTREMITY; Surgeon: Jaxon Buenrostro MD; Location: [facility] FH: Family History [...] Aminoacetate] GI Disturbance GI bleeding Home Meds: REPORT PROGRAMMER Meds Prior to Admission medications Medication Sig Last Dose Taking? Auth Provider calcium acetate (PHOSLO) 667 MG CAPS Take 667 mg by mouth 3 times daily as needed (With snacks) PRN Yes Unknown, Entered By History WARFARIN SODIUM PO Take 5 mg by mouth every evening 12/15/2015 at Unknown time Yes Unknown, Entered ByHistory vitamin B complex with vitamin C (VITAMIN B COMPLEX) TABS Take 1 tablet by mouth every evening 12/15/2015 at Unknown time Yes Reported, Patient Calcium Acetate, Phos Binder, (CALCIUM ACETATE PO) Take 1,334 mg by mouth 3 times daily (with meals)Takes with meals and snacks (2 x 667mg tablet) 12/16/2015 at Unknown time Yes Reported, Patient LISINOPRIL PO Take 20 mg by mouth daily Take on M, W, F, [place] (Non-dialysis days only) 12/16/2015 at Unknown time Yes Reported, Patient bisacodyl (DULCOLAX) 5 MG EC tablet Take 10 mg by mouth See Admin Instructions Take on BID on M, W, F, [place] (Non-dialysis days only) 12/15/2015 at Unknown time Yes Unknown, Entered By History Cholecalciferol (VITAMIN D3 PO) Take 2,000 Units by mouth daily 12/16/2015 at Unknown time Yes Unknown, Entered By History Metoprolol Tartrate (LOPRESSOR PO) Take 100 mg by mouth 2 times daily In the AM and at Noon. Takes on M, W, F, [place] (Non-dialysis days only) 12/15/2015 at Unknown time Yes Unknown, Entered By History b patzrrx-E-aarsz acid (NEPHROCAPS) 1 MG capsule Take 1 capsule by mouth daily (with dinner) 12/15/2015 at Unknown time Yes Reported, Patient simvastatin (ZOCOR) 40 MG tablet Take 40 mg by mouth every evening 12/15/2015 at Unknown time Yes Reported, Patient Current Meds ??? amLODIPine 5 mg Oral Once per day on Sun Tue ??? warfarin-No DOSE today 1 each Does not apply no dose today (warfarin) ??? - MEDICATION INSTRUCTIONS for Dialysis Patients - Does not apply See Admin Instructions ??? insulin aspart 1-7 Units Subcutaneous TID AC ??? insulin aspart 1-5 Units Subcutaneous At Bedtime ??? B hrqkzgd-O-pfyku acid 1 capsule Oral Daily with supper ??? calcium acetate 1,334 mg Oral TID w/meals ??? lisinopril (PRINIVIL,ZESTRIL) tablet 20 mg 20 mg Oral Once per day on Sun Tue ??? metoprolol (LOPRESSOR) tablet 100 mg 100 mg Oral 2 times per day on Sun Tue ??? simvastatin 40 mg Oral QPM ??? cefTRIAXone 1 g Intravenous Q24H ??? vancomycin place watson - receiving intermittent dosing 1 each Does not apply See Admin Instructions ROS: A 10 point review of systems was negative except as noted above. Physical Exam: Temp Av.2 ??F (37.3 ??C) Min: 96.4 ??F (35.8 ??C) Max: 102.7 ??F (39.3 ??C) Pulse Av.4 Min: 62 Max: 98 Resp Av.2 Min: 8 Max: 19 SpO2 Av % Min: 94 % Max: 100 % BP 161/73 mmHg Pulse 65 Temp(Src) 100.4 ??F (38 ??C) (Oral) Resp 19 Ht 5' 4 (1.626 m) Wt 205 lb 4 oz (93.1 kg) BMI 35.21 kg/m2 SpO2 100% Date 12/19/15 07 - 12/20/15 0659 Shift 8430-6399 7014-9837 2077-6654 24 Hour Total I N T A K E P.O. 240 240 Shift Total (mL/kg) 240 (2.58) 240 (2.58) O U T P U T Shift Total (mL/kg) Weight (kg) 93.1 93.1 93.1 93.1 Admit Weight: 199 lb 15.3 oz (90.7 kg) Exam: General: alert, no distress, resting comfortably in bed Neuro: Alert and oriented Cardiac: Regular rate Resp: Breathing unlabored, lung sounds clear and equal on ausculation, no crackles or wheezes Abd: benign Ext: draining thigh wound from sinus. Purulent/cloudy drainage. Indurated operative site. Vascular Examination: Brachial Radial Ulnar Femoral Popliteal DP PT Left Right Labs: CMP Recent Labs Lab 12/19/15 0811 12/18/15 0800 12/17/15 0812 12/16/15 1501 NA 130* 128* 129* 131* POTASSIUM 4.4 4.0 4.0 3.3* CHLORIDE 95 92* 92* 93* CO2 26 24 27 29 ANIONGAP 9 12 10 9 GLC 132* 123* 179* 97 BUN 50* 63* 47* 25 CR 8.35* 11.70* 9.43* 6.94* GFRESTIMATED 7* 5* 6* 8* GFRESTBLACK 8* 6* 7* 10* JON 8.4* 8.5 8.0* 7.8* PROTTOTAL -- -- -- 7.5 ALBUMIN -- -- -- 3.5 BILITOTAL -- -- -- 0.6 ALKPHOS -- -- -- 139 AST -- -- -- 17 ALT -- -- -- 16 CBC Recent Labs Lab 12/18/15 0800 12/17/15 0812 12/16/15 1501 HGB 9.1* 9.4* 10.1* WBC 8.9 9.3 8.9 RBC 3.56* 3.72* 3.93* HCT 28.3* 30.2* 31.8* MCV 80 81 81 MCH 25.6* 25.3* 25.7* MCHC 32.2 31.1* 31.8 RDW 17.7* 17.8* 17.6* PLT 118* 113* 118* INR Recent Labs Lab 12/19/15 0811 12/18/15 0800 12/17/15 0812 12/16/15 1501 INR 2.41* 2.76* 3.56* 3.71* Imaging: IMAGING: No imaging needed -Thank you for the opportunity to participate in the care of this patient. Cintia Marshall MD Vascular Fellow 12/19/2015 10:38 AM I have examined the patient and reviewed the medical record and pertinent imaging. I agree with the above assessment and plan. Mike Aceves [employer]MER ST[employer]DOWNS Ezequiel Pierre MD - 12/17/2015 3:31 PM CSTAssociated Order(s): INFECTIOUS DISEASES IP CONSULT [facility] Infectious Disease Consultation Date of Admission: 12/16/2015 Date of Consult (When I saw the patient): 12/17/2015 Assessment and Plan Julio Cesar Sandhu is a 50 year old male who was admitted on 12/16/2015. I was asked to see the patient for fevers . Impression: 50 y.o male with ESRD, DM, Cognitive deficit admitted from Dialysis unit after fevers and chills during dialysis. No other complaints. History of MSSA bacteremia. Recently on 11/19 - 11/20 had a clotted left thigh dialysis graft and pseudoaneurysm/ perigraft hematoma and ligation of the graft. And a new right sided dialysis catheter was placed at that time. Both the previous graft site on the left and new catheter site on the right thigh look ok. Blood cultures were drawn from the dialysis center and are pending. He was started on IV Vancomycin and Ceftriaxone. He has been afebrile since. Recommendations: Continue IV Vancomycin and Ceftriaxone for now. Will follow up on the blood cultures. Ezequiel Pierre MD Reason for Consult Reason for consult: I was asked by Danis Kim to evaluate this patient for above mentioned. Primary Care Physician CORNELL BUTT Chief Complaint Fevers and chills at the time of dialysis at the [facility]. History is obtained from the patient and medical records History of Present Illness Julio Cesar Sandhu is a 50 year old male who presented with chills and fevers from dialysis unit. He does not provide much history. Endorses no pain or discomfort. Appears to be in no distress. Past Medical History I have reviewed this patient's medical history and updated it with pertinent information if needed. Past Medical History Diagnosis Date ??? Hypertension ??? Anemia ??? Retinopathy ??? Kidney disease ??? Kidney disease ??? Hyperkalemia ??? ESRD (end stage renal disease) ([facility]) dialysis T--Tue ??? Blind ??? DVT (deep venous thrombosis) ([facility]) ??? Orthostasis ??? Diabetes mellitus ([facility]) ??? Syncope ??? Hypertension ??? A-V fistula ([facility]) left forearm ??? Hyperlipemia ??? Cognitive deficits ??? Anemia ??? Sleep apnea CPAP ??? Chronic in-center hemodialysis status ([facility]) ??? Hyperlipidaemia Past Surgical History I have reviewed this patient's surgical history and updated it with pertinent information if needed. Past Surgical History Procedure Laterality Date ??? Av fistula or graft arterial ??? Abdomen surgery ??? Genitourinary surgery TURP,CIRCUMCISION ??? Create fistula arteriovenous upper extremity 10/20/2011 Procedure:CREATE FISTULA ARTERIOVENOUS UPPER EXTREMITY; VEIN PATCH RIGHT ARM ARTERIOVENOUS FISTULA WITH BOVINE PATCH; Surgeon:JAXON BUENROSTRO; Location: OR ??? Create graft loop arteriovenous lower extremity 05/03/2012 Procedure: CREATE GRAFT LOOP ARTERIOVENOUS LOWER EXTREMITY; RIGHT GROIN LOOP GRAFT WITH CADAVER FEMORAL ARTERY; Surgeon: Jaxon Buenrostro MD; Location: [facility] OR ??? Insert catheter venous translumbar 08/08/2012 Procedure: INSERT CATHETER VENOUS TRANSLUMBAR; LUMBAR TUNNEL CATH PLACEMENT.; Surgeon: Michele Fuentes MD; Location: [facility] OR ??? Bypass graft femoropopliteal 08/09/2012 Procedure: BYPASS GRAFT FEMOROPOPLITEAL; REDO RIGHT PROFUNDUS FEMORAL TO COMMON FEMORAL ACCESS GRAFT WITH PTFE (POLY TETRA FLOROETHELINE GRAFT), REMOVAL COMMON FEMORAL VEIN STENT, GRAFT EMBOLECTOMY; Surgeon: Jaxon Buenrostro MD; Location: [facility] OR ??? Thrombectomy lower extremity 08/09/2012 Procedure: THROMBECTOMY LOWER EXTREMITY;; Surgeon: Jaxon Buenrostro MD; Location: [facility] ??? Create fistula arteriovenous lower extremity 06/20/2013 Procedure: CREATE FISTULA ARTERIOVENOUS LOWER EXTREMITY; LEFT GROIN PTFE DIALYSIS ACCESS; Surgeon: Jaxon Buenrostro MD; Location: [facility] ??? Revision fistula arteriovenous lower extremity 05/08/2014 Procedure: REVISION FISTULA ARTERIOVENOUS LOWER EXTREMITY; Surgeon: Jaxon Buenrostro MD; Location: [facility] ??? Revision fistula arteriovenous lower extremity Left 06/04/2014 Procedure: REVISION FISTULA ARTERIOVENOUS LOWER EXTREMITY; Surgeon: Jaxon Buenrostro MD; Location[facility] ??? Irrigation and debridement lower extremity, combined Left 06/04/2014 Procedure: COMBINED IRRIGATION AND DEBRIDEMENT LOWER EXTREMITY; Surgeon: Jaxon Buenrostro MD; Location: [facility] ??? C place cath av dialysis shunt left thigh 05/23 ??? Create fistula arteriovenous lower extremity Left 07/02/2015 Procedure: CREATE FISTULA ARTERIOVENOUS LOWER EXTREMITY; Surgeon: Jaxon Buenrostro MD; Location: [facility] ??? Create graft loop arteriovenous lower extremity Left 08/13/2015 Procedure: CREATE GRAFT ARTERIOVENOUS LOWER EXTREMITY; Surgeon: Jaxon Buenrostro MD; Location: [facility] ??? Revision fistula arteriovenous lower extremity Left 11/19/2015 Procedure: REVISION FISTULA ARTERIOVENOUS LOWER EXTREMITY; Surgeon: Jaxon Buenrostro MD; Location: [facility] OR Prior to Admission Medications Prior to Admission Medications Prescriptions Last Dose Informant Patient Reported? Taking? Calcium Acetate, Phos Binder, (CALCIUM ACETATE PO) 12/16/2015 at Unknown time Trenching Machine Operator Yes Yes Sig: Take 1,334 mg by mouth 3 times daily (with meals) Takes with meals and snacks (2 x 667mg tablet) Cholecalciferol (VITAMIN D3 PO) 12/16/2015 at Unknown time Trenching Machine Operator Yes Yes Sig: Take 2,000 Units by mouth daily LISINOPRIL PO 12/16/2015 at Unknown time Trenching Machine Operator Yes Yes Sig: Take 20 mg by mouth daily Take on M, W, F, [place] (Non-dialysis days only) Metoprolol Tartrate (LOPRESSOR PO) 12/15/2015 at Unknown time Trenching Machine Operator Yes Yes Sig: Take 100 mg by mouth 2 times daily In the AM and at Noon. Takes on , W, , [place] (Non-dialysis days only) WARFARIN SODIUM PO 12/15/2015 at Unknown time Trenching Machine Operator Yes Yes Sig: Take 5 mg by mouth every evening b mvijfen-Z-wzilz acid (NEPHROCAPS) 1 MG capsule 12/15/2015 at Unknown time Trenching Machine Operator Yes Yes Sig: Take 1 capsule by mouth daily (with dinner) bisacodyl (DULCOLAX) 5 MG EC tablet 12/15/2015 at Unknown time Trenching Machine Operator Yes Yes Sig: Take 10 mg by mouth See Admin Instructions Take on BID on , W, F, [place] (Non- dialysis days only) calcium acetate (PHOSLO) 667 MG CAPS PRN Trenching Machine Operator Yes Yes Sig: Take 667 mg by mouth 3 times daily as needed (With snacks) simvastatin (ZOCOR) 40 MG tablet 12/15/2015 at Unknown time Trenching Machine Operator Yes Yes Sig: Take 40 mg by mouth every evening vitamin B complex with vitamin C (VITAMIN B COMPLEX) TABS 12/15/2015 at Unknown time Trenching Machine Operator Yes Yes Sig: Take 1 tablet by mouth every evening Facility-Administered Medications: None Allergies Allergies Allergen Reactions ??? Aspirin [Dihydroxyaluminum Aminoacetate] GI Disturbance GI bleeding Immunization History There is no immunization history on file for this patient. Social History I have reviewed this patient's social history and updated it with pertinent information if needed. Julio Cesar Sandhu reports that he has never smoked. He has never used smokeless tobacco. He reports that he does not drink alcohol or use illicit drugs. Family History I have reviewed this patient's family history and updated it with pertinent information if needed. Family History Problem Relation Age of Onset ??? Family history unknown: Yes Review of Systems The 10 point Review of Systems is negative other than noted in the HPI or here. Physical Exam Temp: 99.7 ??F (37.6 ??C) Temp src: Oral BP: 181/90 mmHg Heart Rate: 81 Resp: 16 SpO2: 100 % O2 Device: None (Room air) Vital Signs with Ranges Temp: [99.7 ??F (37.6 ??C)-102.7 ??F (39.3 ??C)] 99.7 ??F (37.6 ??C) Heart Rate: [75-85] 81 Resp: [16] 16 BP: (148-186)/(67-90) 181/90 mmHg SpO2: [96 %-100 %] 100 % 196 lbs 10.41 oz GENERAL APPEARANCE: sleeping but wakes up to respond some EYES: one eye appears grossly smaller is size, known blindness HENT: Mouth without ulcers or lesions NECK: no adenopathy RESP: lungs clear to auscultation CV: regular rates and rhythm, normal S1 S2 LYMPHATICS: normal ant/post cervical and supraclavicular nodes ABDOMEN: soft, nontender and bowel sounds normal MS: the dialysis catheter on the right femoral area appears to be slightly out, no gross redness erythema or discharge from around it. The area of previous graft on the left appears ok from outside. SKIN: no suspicious lesions or rashes NEURO: slow to respond PSYCH: hard to assess Data Lab Results Component Value Date WBC 9.3 12/17/2015 HGB 9.4* 12/17/2015 HCT 30.2* 12/17/2015 PLT 113* 12/17/2015 NA 129* 12/17/2015 POTASSIUM 4.0 12/17/2015 CHLORIDE 92* 12/17/2015 CO2 27 12/17/2015 BUN 47* 12/17/2015 CR 9.43* 12/17/2015 GLC 179* 12/17/2015 AST 17 12/16/2015 ALT 16 12/16/2015 ALKPHOS 139 12/16/2015 BILITOTAL 0.6 12/16/2015 INR 3.56* 12/17/2015 No results for input(s): CULT in the last 168 hours. Recent Labs Lab Test 08/17/15 0814 08/16/15 0913 08/15/15 0345 08/14/15 0340 08/13/15 0826 08/12/15 0814 08/11/15 0841 08/11/15 0836 08/10/15 1355 CULT No growth No growth No growth No growth No growth No growth No growth No growth Cultured on the1st day of incubation: Staphylococcus aureus Critical Value/Significant Value, preliminary result only, called to and read back by Ebony Laguna @0832 08/11/2015. CT Susceptibility testing done on previous specimen * FORMER STITCHDOWNS documented in this encounter ED Notes Rula Cali RN - 12/16/2015 5:30 PM CST [facility] ED Nurse Handoff Report Patient Name: Julio Cesar Sandhu Date of : 1965 Age: [age] year old Date of Admission: 12/16/2015 ED Chief complaint: Fever ED Diagnosis: Final diagnoses: Fever Code Status: Full Code Allergies: Allergies Allergen Reactions ??? Aspirin [Dihydroxyaluminum Aminoacetate] GI Disturbance GI bleeding Activity level: Stand with Assist Cut Off Machine Operator Needed?: No Isolation: No Infection: Not Applicable Bariatric?: No Vital Signs: Filed Vitals: 12/16/15 1500 12/16/15 1605 12/16/15 1623 12/16/15 1644 BP: 186/85 178/81 Temp: 99.8 ??F (37.7 ??C) TempSrc: Oral Resp: 16 Height: Weight: SpO2: 100% 100% 100% Cardiac Rhythm:Cardiac (WDL): WDL, Pain level: 0-10 Pain Scale: 0 Level of Consciousness:Cognitive/Perceptual/Neuro (WDL): WDL Except, Level Of Consciousness: lethargic Patient Report: Pt was at dialysis today when he became shaky and chilled. Temp measured at 101F. Ptfinished dialyzing and was given vanco and rocephin in clinic. Here pt Temp down to 99.8F oral, VSS,pt is sleepy,lethargic, but awakens to voice and answers questions appropriately. Pt has dialysis access in R groin and 20G IV in R AC. Pt given 250cc on NS. UA ordered, but unable to obtain d/t pt hasvery low urine output. Blood cultures drawn at dialysis and 1 set drawn here from peripheral IV, we are trying to contact tube filler to draw a second set from the Shunt site. Family Comments: None present ED Medications: Medications 0.9% sodium chloride BOLUS (0 mLs Intravenous Stopped 12/16/15 1650) Drips infusing?: No LDA's: Peripheral IV 12/16/15 Right (Active) Number of days:0 CVC Double Lumen 11/20/15 Right Femoral (Active) Number of days:26 Arterial Sheath (Active) Number of days:901 Venous Sheath (Active) Number of days:901 Hemodialysis Vascular Access Arteriovenous fistula Right Thigh (Active) Number of days: Hemodialysis Vascular Access Arteriovenous graft Left (Active) Number of days: Hemodialysis Vascular Access Arteriovenous fistula Left Femoral vein (Active) Number of days: Wound Left;Upper Thigh (Active) Number of days: Incision/Surgical Site 10/20/11 Lower;Right Arm (Active) Number of days:1518 Incision/Surgical Site 10/20/11 Upper;Right Arm (Active) Number of days:1518 Incision/Surgical Site 05/03/12 Right Groin (Active) Number of days:1322 Incision/Surgical Site 08/08/12 Right Groin (Active) Number of days:1225 Incision/Surgical Site 08/09/12 Right Groin (Active) Number of days:1224 Incision/Surgical Site 08/09/12 Anterior;Right Thigh (Active) Number of days:1224 Incision/Surgical Site 06/20/13 Left Groin (Active) Number of days:909 Incision/Surgical Site 06/04/14 Left;Upper Thigh (Active) Number of days:560 Incision/Surgical Site 07/02/15 Left Groin (Active) Number of days:167 Incision/Surgical Site 08/13/15 Left Leg (Active) Number of days:125 Incision/Surgical Site 08/14/15 Right Groin (Active) Number of days:124 Incision/Surgical Site 11/19/15 Left Leg (Active) Number of days:27 ED NURSE PHONE NUMBER: [phone] FORMER STITCHDOWNS Emeka Becerra - 12/16/2015 4:17 PM CST Pt on bearpaws FORMER STITCHDOWNS Caryn Jacobson RN - 12/16/2015 3:06 PM CST Pt to XR FORMER ST[employer]DOWNS Georgia Perez MD - 12/16/2015 2:29 PM CST History Chief Complaint: Fever HPI Julio Cesar Sandhu is a 50 year old male with a history of cognitive deficits, diabetes mellitus, hypertension, hyperlipidemia, and ESRD on dialysis status post left lower extremity fistula revision on 11/19 who presents via EMS from his dialysis clinic with a fever. Staff from the clinic report that he had a temperature of 101 measured today so they gema 2 sets of blood cultures and then gave an IV dose of Rocephin and Vancomycin. After this his fever was measured at 102 and he was sent to the ED. At presentation the patient denies any pain including no cough, abdominal pain, headache, or pain around his port or recent fistula site. He states he makes only a very small amount of urine. Allergies: Aspirin - GI Disturbance Medications: Ancef Phoslo Lisinopril Dulcolax Vitamin D Lopressor Coumadin Nephrocaps Zocor Past Medical History: Hypertension Retinopathy Kidney disease Hyperkalemia End stage renal disease Blind DVT Orthostasis Diabetes A-V fistula Hyperlipidemia Cognitive deficits Sleep apnea Past Surgical History: AV fistula or graft arterial TURP, circumcision Create fistula arteriovenous upper extremity Create graft loop arteriovenous lower extremity Insert catheter venous translumbar Bypass graft femoropopliteal Create fistula arteriovenous lower extremity Revision fistula arteriovenous lower extremity Irrigation and debridement left lower extremity Cath AV dialysis shunt placement Fistula revision left lower extremity Family History: History reviewed. No pertinent family history. Social History: Smoking Status: Negative Smokeless Tobacco: Negative Alcohol Use: Negative Marital Status: Single Review of Systems Constitutional: Positive for fever. Respiratory: Negative for cough. Gastrointestinal: Negative for abdominal pain. Neurological: Negative for headaches. All other systems reviewed and are negative. Physical Exam First Vitals: BP: 130/79 mmHg Heart Rate: 76 Temp: 100.2 ??F (37.9 ??C) Resp: 16 Height: 162.6 cm (5' 4) Weight: 90.7 kg (199 lb 15.3 oz) SpO2: 99 % Physical Exam General/Appearance: appears stated age, well-groomed, appears comfortable but mildly sleepy, poor historian with delayed responses before answering questions Eyes: EOMI, no scleral injection, no icterus ENT: MMM Neck: supple, nl ROM, no stiffness Cardiovascular: right inguinal dialysis port access without surrounding erythema/purulent discharge,scars to bilateral upper extremities, fistula/graft site to left anterior thigh C/D/I without erythema/warmth/tenderness to palpation, RRR, nl S1S2, no m/r/g, 2+ pulses in all 4 extremities, cap refill <2sec Respiratory: CTAB, good air movement throughout, no wheezes/rhonchi/rales, no increased WOB, no retractions Back: no lesions GI: abd soft, non-distended, nttp, no HSM, no rebound, no guarding, nl BS MSK: CORRAL, good tone, no bony abnormality Skin: warm and well-perfused, no rash, no edema, no ecchymosis, nl turgor Neuro: GCS 15, alert and oriented, no gross focal neuro deficits Psych: interacts appropriately Heme: no petechia, no purpura, no active bleeding Emergency Department Course ECG: @ 1448 Indication: fever Vent. Rate 74 bpm. OK interval 188 ms. QRS duration 102 ms. QT/QTc 406/450 ms. P-R-T axis 53 -9 44. Normal sinus rhythm, septal infarct, age undetermined, Abnormal ECG. Read @ [address] Perez. Imaging: Radiographic findings were communicated with the patient who voiced understanding of the findings. Chest X-ray Negative. Report per radiology. Laboratory: CBC: WBC 8.9, HGB 10.1 (L), PLT 118 (L), otherwise WNL CMP: NA 131 (L), Potassium 3.3 (L), Chloride 93 (L), Creatinine 6.94 (H), GFR 8 (L), Calcium 7.8 (L), otherwise WNL Lipase: 154 INR: 3.71 (H) Influenza A/B Antigen: Influenza A negative, Influenza B negative Interventions: Normal Saline, 250 mL, IV bolus Emergency Department Course: The patient arrived in the emergency department via EMS. Nursing notes and vitals reviewed. I performed an exam of the patient as documented above. EKG was done, interpretation as above. A peripheral IV was established. Blood was drawn from the patient. This was sent for laboratory testing, findings above. The patient's nose was swabbed and this sample was sent for influenza screen, findings above. The patient was sent for a chest x-ray while in the emergency department, findings above. (1605) I updated the patient on his laboratory and imaging results. (1712) I discussed the patient with Dr. Styles, Nephrology. (1732) I discussed the patient with Dr. Styles, Nephrology. Findings and plan explained to the patient who consents to admission. (1656) I discussed the patient with Dr. Navarro of the hospitalist service, who will admit the patient to a medical bed for further monitoring, evaluation, and treatment. Impression & Plan Medical Decision Making: Julio Cesar Sandhu is a 50 year old male with a history of end stage renal disease on dialysis, diabetes, cognitive deficits who presents with a fever that began today during dialysis. At the dialysissite they gema two cultures and started him on Vancomycin and Ceftriaxone prior to him arriving in our ED. Unfortunately, despite significant effort we have been unable to get a hold of this facility and/or find out where the culture sites were drawn from as well as how we find out the culture results. Clinically, he has no obvious source at this point. He denies any recent cough or runny nose. Chestx-ray is negative. He makes minimal urine and therefore we have not been able to get a sample. He has no abdominal pain nor abdominal tenderness. A notable source is a right groin hemodialysis access catheter that was placed approximately one month ago after they had to go in and ligate his left lowerextremity dialysis fistula. Because we do not know if they officially took a culture from this site,we are having another culture drawn. We have contacted nephrology with hopes that they will be able to help us contact the specific [facility] site for the answers above. Otherwise at this time the patient remains hemodynamically stable. He does have an elevated INR and a low sodium, which is baseline. Otherwise he will be brought in by internal medicine for continued care. Diagnosis: ICD-10-CM 1. Fever R50.9 Influenza A/B antigen I Charlene Villasenorkendra serving as a scribe on 12/16/2015 at 2:35 PM to personally document services performed by Dr. Perez based on my observations and the provider's statements to me. 12/16/2015 EMERGENCY DEPARTMENT Georgia Perez MD 12/16/15 2300 FORMER STITCHDOWNS Arianna Corea, LINDA - 12/16/2015 2:22 PM CST Bed: ED27 Expected date: Expected time: Means of arrival: Comments: Hold for [facility] pt FORMER STITCHDOWNS documented in this encounter Miscellaneous Notes Plan of Care - Marisol Pabon RN - 12/22/2015 2:43 PM CDT Problem: Goal Outcome Summary Goal: Goal Outcome Summary Outcome: Adequate for Discharge Date Met: 12/22/15 Patient A&Ox3. Up SBA in room. Vitals stable. Denies pain. Dressing changed to left groin site by Surgery this am. IV antibiotic given prior to discharge per ID. Discharge to home today with home care and IV antibiotics scheduled at dialysis. Reviewed discharge instructions with patient and familywith understanding. Prescription given and reviewed. Plan of Care - Jennifer Jacob RN - 12/22/2015 4:41 AM CDT Problem: Goal Outcome Summary Goal: Goal Outcome Summary Outcome: Improving Pt A/Ox4, flat affect. SBA, fall risk. VSS on RA, high BP 165/73. No complaints of pain. Dressing onL groin changed. Legally blind. Right dialysis cath. Good appetite. D/C when on PO antibiotics and cleared by ID and surgery. Plan of Care - Katja Velazquez RN - 12/21/2015 1:30 PM CDT Problem: Goal Outcome Summary Goal: Goal Outcome Summary Outcome: Improving AOx3, sleeping most of the time, flat affect. Calm/cooperative. BP elevated, has PRN hydralazineX1. Denies pain. Dressing changed done x1 to left gorin area, post ID on 12/18. New dialysis cath intact to R groin. BGM 110/126. Pt. Has good appetite and frequently asking for extra food. No urine output this shift. On IV abx. Plan f/u by ID, Renal, Vascular done for today. Plan to d/c when ready for PO abx, leaves with mom and aunt. Plan of Care - Caitlyn Sherwood RN - 12/20/2015 10:50 PM CST Problem: Goal Outcome Summary Goal: Goal Outcome Summary Outcome: No Change Care Plan Summary Note: A and O x4, vague at times. Pt. Lethargic at times with a flat affect. Denies pain. Dressing change done x1 to left gorin area. Mod amount sersanguinous drainage. Zel[place] cath intact to right groin. BGM 143-134 this shift. Pt. Has tremendous appetite and frequently asking for extra food. No urine output this shift. BP elevated, has PRN parameters if needed. Fall risk precautions in place, up with SBA. Up in chair x3 hours. Pt. Aware of 1500 cc fluid intake, had 600 cc intake this shift. [facility] Pharmacy - Angela Kay [facility] - 12/20/2015 4:11 PM CST Prescriber Notification Note The pharmacist has communicated with this patient's provider regarding a concern or therapy recommendation. Notified Person: Vascular coal gasification technician (Danish Diaz MD) Date/Time of Notification: 12/20/15 @ 1600 Interaction: phone Concern/Recommendation: Resume warfarin after today's procedure? Or hold off? Comments/Additional Details: Hold until tomorrow and will re-evaluate then. [facility] Pharmacy-Vancomycin Dosing Service - Viridiana Quinonez [facility] - 12/20/2015 2:57 PM TOE [facility] Vancomycin Note Date of Service December 20, 2015 Patient's 1965 50 year old, male Indication: Sepsis Goal Trough Level: 15-20 mg/L Day of Therapy: 3 Current Vancomycin regimen: Intermittant Current estimated CrCl = Estimated Creatinine Clearance: 52.5 mL/min (based on Cr of 1.7). Creatinine for last 3 days 12/18/2015: 8:00 AM Creatinine 11.70 mg/dL* 12/19/2015: 8:11 AM Creatinine 8.35 mg/dL* 12/20/2015: 9:10 AM Creatinine 1.70 mg/dL* Recent Vancomycin Levels (past 3 days) 12/18/2015: 8:00 AM Vancomycin Level 24.6 mg/L 12/20/2015: 9:10 AM Vancomycin Level 18.8 mg/L Vancomycin IV Administrations (past 72 hours) vancomycin (VANCOCIN) 1000 mg in dextrose 5% 200 mL PREMIX (mg) 1,000 mg New Bag 12/18/15 1700 Nephrotoxins and other renal medications (Future) Start Dose/Rate Route Frequency Ordered Stop 12/20/15 1500 vancomycin (VANCOCIN) 1500 mg in 0.9% NaCl 250 mL PREMIX 1,500 mg Intravenous ONCE 12/20/15 1453 12/17/15 0900 lisinopril (PRINIVIL,ZESTRIL) tablet 20 mg 20 mg Oral Once per day on Sun Tue12/16/15 1834 12/16/152127 vancomycin place [facility] - receiving intermittent dosing 1 each Does not apply SEE ADMIN INSTRUCTIONS 12/16/152127 Contrast Orders - past 72 hours None Interpretation of levels and current regimen: Trough level is Therapeutic Has serum creatinine changed > 50% in last 72 hours: No Urine output: unable to determine Renal Function: Stable Plan: 1. 1500mg IV X 1 2. Pharmacy will check trough levels as appropriate in 1-3 Days. 3. Serum creatinine levels will be ordered daily for the first week of therapy and at least twice weekly for subsequent weeks. Viridiana Quinonez . [facility] Plan of Care - Rachel Flores RN - 12/20/2015 1:57 PM CST Problem: Goal Outcome Summary Goal: Goal Outcome Summary Outcome: No Change A/O x4. Up w/SBA. Denies pain. VSS on RA. Renal diet. Good appetite. Had dialysis today. Dressing over L wound CDI. BGM 133 and 156. Nephrology, ID and vascular following. Continue to monitor. [facility] Op Note - Mike Aceves MD - 12/20/2015 8:53 AM CST PREOPERATIVE DIAGNOSIS: Draining infection, left proximal thigh, status post ligation of left proximal thigh dialysis graft. POSTOPERATIVE DIAGNOSIS: Infected PTFE dialysis graft. PROCEDURE: Incision and drainage. Excision of infected graft. CUSTODIAL OPERATIONS MANAGER: Vi Rocha MD DESCRIPTION OF PROCEDURE: Julio Cesar Sandhu was brought to the operating room. General anesthetic was administered. The patient was positioned in a frogleg position and the left upper thigh sterilely prepped and draped. An area that had spontaneously drained through the skin was excised. Deep cultures were taken. There was purulence and a visible piece of PTFE that extended proximally towards the apparent venous anastomosis. The incision was extended directly on this, we were almost to the venous anastomosis, I believe. At this point, the graft was incorporated, and I clamped and oversewed it with 3-0 Prolene. There was no flow in the graft. The wound was then sharply debrided of all necrotic and infected tissue. Pulse evacuation system was then used with 2 liters of double antibiotic solution. The wound was packed open with Kerlix gauze soaked in double antibiotic solution. The patient tolerated the procedure well. Blood loss was 15 mL. Sponge and needle counts were correct. MIKE ACEVES MD MT: [id number] Name: JULIO CESAR SANDHU MRN: [id number] Account: [id number] : 1965 Procedure Date: 12/19/2015 Document: [id number] The left thigh wound was sharply debrided using scalpel to excise non-viable and viable skin and subcutaneous tissues. In addition the PTFE graft was excised. Plan of Care - Pan Mota RN - 12/20/2015 6:27 AM CST Problem: Goal Outcome Summary Goal: Goal Outcome Summary Outcome: No Change A&O. VSS. CMS intact. Dressing to R groin CDI. To be chaged starting today. See orders. Dialysisaccess dressing CDI. Glucose 120. Pt slept poorly. Up in chair for most of night. Ambulated in hallway. Dialysis this AM. Up SBA. Will continue to monitor. [facility] Plan of Care - Rayna Ching, LINDA - 12/19/2015 10:51 PM CST Problem: Goal Outcome Summary Goal: Goal Outcome Summary Outcome: No Change A &O x4, Denies pain when asked. I&D of left groin fistula completed this evening, dressing dry/intact, hypertensive, afebrile on renal diet. BG 124 at HS, Pt doesn't make urine will have dialysis tomorrow. [facility] Brief Op Note - Vi Rocha MD - 12/19/2015 6:37 PM CST [facility] Brief Operative Note Pre-operative diagnosis: UNSPECIFIED Post-operative diagnosis abscess left thigh at ligated hemodialysis graft Procedure: Procedure(s): IRRIGATION AND DEBRIDEMENT LEFT UPPER LEG Surgeon(s): Surgeon(s) and Role: * Mike Aceves MD - Primary * Vi Rocha MD - Assisting Estimated blood loss: * No values recorded between 12/19/2015 5:59 PM and 12/19/2015 6:37 PM * Specimens: ID Type Source Tests Collected by Time Destination 1 : Left Thigh Wound Swab Leg, left ANAEROBIC BACTERIAL CULTURE, GRAM STAIN, WOUND CULTURE AEROBIC BACTERIAL Mike Aceves MD 12/19/2015 6:01 PM Findings: Abscess at left thigh at site of ligated dialysis AV graft, tracking back to what appears to be venous limb of PTFE graft, which was resected and a stump of PTFE was oversewn [facility] Plan of Care - Isis Dougherty, RN - 12/19/2015 2:33 PM CST Problem: Goal Outcome Summary Goal: Goal Outcome Summary A&O x4. Up with SBA x 1. Denies pain. Left groin fistula has open wound the size of a pencil eraser. Purulent/bloody drainage. Culture sent, pending results. ID contacted. Vascular surgery following. Temp of 100.4, 650 mg tylenol given. Temp 98.7 after. Renal diet. BG of 104, 137. Doesn't make urine. To OR this afternoon for I&D L groin wound [facility] Provider Notification - Pavan Roy, RN - 12/19/2015 8:30 AM TOE [facility] Dr. Kim and Dr. Wisdom notified of left upper thigh fistula. Small opening the size of a pencil eraser head, moderate amount of purulent/bloody drainage. Wound culture taken. Vascular surgery consulted. [facility] Plan of Care - Rachel Flores RN - 12/19/2015 5:01 AM CST Problem: Goal Outcome Summary Goal: Goal Outcome Summary Outcome: No Change A/O x4. Up w/SBA. Denies pain. Hypertensive at times, IV hydralazine given. Otherwise VSS on RA. Renal diet. BGM 163 and 156. Nephrology and ID following. Cultures pending. Continue to monitor. [facility] Plan of Care - Mary Johnson RN - 12/18/2015 4:02 PM CST Problem: Goal Outcome Summary Goal: Goal Outcome Summary Outcome: Improving Pt denies any discomfort. Had dialysis today. Appetite good for lunch. Blood sugars stable. VSS. [facility] Pharmacy-Vancomycin Dosing Service - Compa Desai [facility] - 12/18/2015 1:16 PM TOE [facility] Vancomycin Note Date of Service December 18, 2015 Patient's 1965 50 year old, male Indication: Sepsis Goal Trough Level: 15-20 mg/L Day of Therapy: 3 Current Vancomycin regimen: Intermittent doses based on levels Current estimated CrCl = Estimated Creatinine Clearance: 7.5 mL/min (based on Cr of 11.7). Creatinine for last 3 days 12/16/2015: 3:01 PM Creatinine 6.94 mg/dL* 12/17/2015: 8:12 AM Creatinine 9.43 mg/dL* 12/18/2015: 8:00 AM Creatinine 11.70 mg/dL* Recent Vancomycin Levels (past 3 days) 12/16/2015: 8:15 PM Vancomycin Level 18.5 mg/L 12/18/2015: 8:00 AM Vancomycin Level 24.6 mg/L Vancomycin IV Administrations (past 72 hours) vancomycin (VANCOCIN) 1000 mg in dextrose 5% 200 mL PREMIX (mg) 1,000 mg New Bag 12/16/15 2239 Nephrotoxins and other renal medications (Future) Start Dose/Rate Route Frequency Ordered Stop 12/18/15 1400 vancomycin (VANCOCIN) 1000 mg in dextrose 5% 200 mL PREMIX 1,000 mg over 60 Minutes Intravenous ONCE 12/18/15 1316 12/17/15 0900 lisinopril (PRINIVIL,ZESTRIL) tablet 20 mg 20 mg Oral Once per day on Sun Tue12/16/15 1834 12/16/[address] [facility] - receiving intermittent dosing 1 each Does not apply SEE ADMIN INSTRUCTIONS 12/16/15 6389 Contrast Orders - past 72 hours None Interpretation of levels and current regimen: Trough level is Therapeutic Has serum creatinine changed > 50% in last 72 hours: No Urine output: unable to determine Renal Function: ESRD on Dialysis Plan: 1. Redose with 10 mg/kg (1gm) today for exptrapolated post HD level of 15-18 2. Pharmacy will check trough levels as appropriate in 1-3 Days. 3. Serum creatinine levels will be ordered daily for the first week of therapy and at least twice weekly for subsequent weeks. Compa Desai . [facility] Plan of Care - Rachel Flores RN - 12/18/2015 5:18 AM CST Problem: Goal Outcome Summary Goal: Goal Outcome Summary Outcome: No Change A/O x4. Up w/SBA. Denies pain. Hypertensive, PRN hydralazine given. Dressing over inguinal dialysis port changed by tube filler, CDI. Renal diet. Nephrology and ID following. BGM 122 and 149. Continue to monitor. [facility] Plan of Care - Mary Johnson RN - 12/17/2015 4:47 PM CST Problem: Goal Outcome Summary Goal: Goal Outcome Summary Outcome: Improving Pt denies any discomfort. Low grade temp, BP slightly elevated, other VSS. Right inguinal dialysis port site clean and dry. Appetite is very good. Pt has been up in chair a good part of the day, requires only SBA. [facility] Utilization Review - Aldo Salgado MD - 12/17/2015 9:12 AM CST Admission Status; Secondary Review Determination Under the authority of the Utilization Management Committee, the utilization review process indicated a secondary review on the above patient. The review outcome is based on review of the medical records, discussions with staff, and applying clinical experience noted on the date of the review. (x) Inpatient Status Appropriate - This patient's medical care is consistent with medical managementfor inpatient care and reasonable inpatient medical practice. RATIONALE FOR DETERMINATION 50-year-old male with a past medical history significant for ESRD on hemodialysis, SHIRLEY, hypertension, secondary hyperparathyroidism, vitamin D deficiency, history of DVT of upper extremity, legal blindness, anemia of chronic disease and recent admission for clotted left thigh dialysis graft and pseudoaneurysm and PDA graft hematoma who was sent from dialysis for fever of 102-103 and chills.He was initiated on vancomycin and ceftriaxon. Patient was admitted as inpatient for the following reasons: thepatient was recently in hospital from 11/19 to 11/21/2015 for a clotted left thigh dialysis graft and pseudoaneurysm/perigraft hematoma and underwent evacuation of hematoma and ligation of graft. His lower extremity dialysis catheter was replaced at that time and he was resumed on his Coumadin. Mr. Sandhu also has a history of MSSA bacteremia when he was admitted in August. Patient has Medicare and had an anticipated length of stay for complex evaluation and management of more than 2 midnights. The expected length of stay at the time of admission was more than 2 midnights because of the severity of illness, intensity of service provided, and risk for adverse outcome. Inpatient admission is appropriate based on the Medicare guidelines. This document was produced using voice recognition software The information on this document is developed [...] 1 and Chapter 6, section 70.4. Sincerely, ALDO SALGADO MD System Excel Expert Utilization Review/ Case Management [facility]. [facility] Plan of Care - Rachel Flores RN - 12/17/2015 5:19 AM CST Problem: Goal Outcome Summary Goal: Goal Outcome Summary Outcome: No Change A?O x4. Up w/SBA. VSS on RA, temp down to 99.8 after tylenol. Denies pain. IV vanco and rocephin given. Right inguinal dialysis port, dressing CDI. Renal diet. Nephrology consulted. Continue to monitor. [facility] Pharmacy-Vancomycin Dosing Service - Ariana Suazo, PharmD - 12/16/2015 9:36 PM CST Pharmacy Vancomycin Initial Note Date of Service December 16, 2015 Patient's 1965 50 year old, male ABW ~ 91 kg Pt has been receiving outpatient dialysis //. Indication: Sepsis Current estimated CrCl = Estimated Creatinine Clearance: 12.6 mL/min (based on Cr of 6.94). Creatinine for last 3 days 12/16/2015: 3:01 PM Creatinine 6.94 mg/dL* Recent Vancomycin Level(s) for last 3 days 12/16/2015: 8:15 PM Vancomycin Level 18.5 mg/L Pt received vancomycin at an outpatient dialysis center today. I was unable to obtain the dose/time given (due to after hours). A random vancomycin level was obtain to assist with dosing. Vancomycin IV Administrations (past 72 hours) No vancomycin orders with administrations in past 72 hours. Recent Vancomycin Levels (past 3 days) 12/16/2015: 8:15 PM Vancomycin Level 18.5 mg/L Nephrotoxins and other renal medications (Future) Start Dose/Rate Route Frequency Ordered Stop 12/17/15 0900 lisinopril (PRINIVIL,ZESTRIL) tablet 20 mg 20 mg Oral Once per day on Sun Tue12/16/15 1834 12/16/15 2300 vancomycin (VANCOCIN) 1000 mg in dextrose 5% 200 mL PREMIX 1,000 mg Intravenous ONCE 12/16/15213512/16/152127 vancomycin [address] [facility] - receiving intermittent dosing 1 each Does not apply SEE ADMIN INSTRUCTIONS 12/16/152127 Contrast Orders - past 72 hours None Plan: 1. Due to renal function, start Vancomycin intermittent dosing. With a level of 18.5 mg/L post dialysis, give x1 dose of 1000 mg (~10 mg/kg) tonight. 2. Goal Trough Level: 15-20 mg/L 3. Pharmacy will check trough levels as appropriate with next dialysis or in 24 - 48 hours. 4. Serum creatinine levels will be ordered daily for the first week of therapy and at least twice weekly for subsequent weeks. 5. [place] method utilized to dose vancomycin therapy: Method 2 Ariana Suazo PharmD [facility] Pharmacy-Anticoagulation Service - Ariana Suazo PharmD - 12/16/2015 7:57 PM CST Clinical Pharmacy - Warfarin Dosing Consult Pharmacy has been consulted to manage this patient???s warfarin therapy. Indication: DVT/ PE Treatment Therapy Goal: INR 2-3 Warfarin Prior to Admission: Yes Warfarin REPORT PROGRAMMER Regimen: 5 mg po daily Significant drug interactions: simvastatin Dose Comments: h/o DVT INR Date Value Ref Range Status 12/16/2015 3.71* 0.86 - 1.14 Final Recommend warfarin 0 mg today. Pharmacy will monitor Julio Cesar Sandhu daily and order warfarin doses to achieve specified goal. Please contact pharmacy as soon as possible if the warfarin needs to be held for a procedure or if the warfarin goals change. [facility] Pharmacy-Admission Medication History - Angela Kay, [facility] - 12/16/2015 4:34 PM CST Admission medication history interview status for the 12/16/2015 admission is complete. See [facility] admission navigator for prior to admission medications Medication history source reliability:Good Actions taken by pharmacist (provider contacted, etc): Called [facility] in [place] at [phone] and talked to LINDA Bruce who faxed over a copy of his med list including his current warfarin dose. Additional medication history information not noted on REPORT PROGRAMMER med list :None Medication reconciliation/reorder completed by provider prior to medication history? No Time spent in this activity: 15 minutes Prior to Admission medications Medication Sig Last Dose Taking? Auth Provider calcium acetate (PHOSLO) 667 MG CAPS Take 667 mg by mouth 3 times daily as needed (With snacks) PRN Yes Unknown, Entered By History WARFARIN SODIUM PO Take 5 mg by mouth every evening 12/15/2015 at Unknown time Yes Unknown, Entered ByHistory vitamin B complex with vitamin C (VITAMIN B COMPLEX) TABS Take 1 tablet by mouth every evening 12/15/2015 at Unknown time Yes Reported, Patient Calcium Acetate, Phos Binder, (CALCIUM ACETATE PO) Take 1,334 mg by mouth 3 times daily (with meals)Takes with meals and snacks (2 x 667mg tablet) 12/16/2015 at Unknown time Yes Reported, Patient LISINOPRIL PO Take 20 mg by mouth daily Take on M, W, F, [place] (Non-dialysis days only) 12/16/2015 at Unknown time Yes Reported, Patient bisacodyl (DULCOLAX) 5 MG EC tablet Take 10 mg by mouth See Admin Instructions Take on BID on M, W, F, [place] (Non-dialysis days only) 12/15/2015 at Unknown time Yes Unknown, Entered By History Cholecalciferol (VITAMIN D3 PO) Take 2,000 Units by mouth daily 12/16/2015 at Unknown time Yes Unknown, Entered By History Metoprolol Tartrate (LOPRESSOR PO) Take 100 mg by mouth 2 times daily In the AM and at Noon. Takes on M, W, F, [place] (Non-dialysis days only) 12/15/2015 at Unknown time Yes Unknown, Entered By History b eqirutk-[id number]-kqgxy acid (NEPHROCAPS) 1 MG capsule Take 1 capsule by mouth daily (with dinner) 12/15/2015 at Unknown time Yes Reported, Patient simvastatin (ZOCOR) 40 MG tablet Take 40 mg by mouth every evening 12/15/2015 at Unknown time Yes Reported, Patient [facility] documented in this encounter Plan of Treatment Scheduled Referrals Name Type Priority Associated Diagnoses Order S [facility] nursing Referral Routine Cellulitis and abscess Ordered: 12/22/2015 referral of leg, except foot documented as of this encounter Procedures Procedure Name Priority Date/Time Associated Diagnosis Comme nts GLUCOSE BY METER Routine 12/22/2015 11:02 Fever, unspecified R esults for this AM CDT fever cause procedure are i n the results section. GLUCOSE BY METER Routine 12/22/2015 7:54 Fever, unspecified Re sults for this AM CDT fever cause procedure are i n the results section. INR Routine 12/22/2015 7:54 Fever, unspecified Result s for this AM CDT fever cause procedure are i n the results section. BASIC METABOLIC PANEL Routine 12/22/2015 7:54 Fever, unspecifi ed Results for this AM CDT fever cause procedure are i n the results section. CBC WITH PLATELETS Routine 12/22/2015 7:54 Fever, unspecified Results for this AM CDT fever cause procedure are i n the results section. GLUCOSE BY METER Routine 12/22/2015 1:36 Fever, unspecified Re sults for this AM CDT fever cause procedure are i n the results section. GLUCOSE BY METER Routine 12/21/2015 9:26 Fever, unspecified Re sults for this PM CDT fever cause procedure are i n the results section. GLUCOSE BY METER Routine 12/21/2015 5:23 Fever, unspecified Re sults for this PM CDT fever cause procedure are i n the results section. GLUCOSE BY METER Routine 12/21/2015 11:02 Fever, unspecified R esults for this AM CDT fever cause procedure are i n the results section. INR Routine 12/21/2015 7:40 Fever, unspecified Result s for this AM CDT fever cause procedure are i n the results section. BASIC METABOLIC PANEL Routine 12/21/2015 7:40 Fever, unspecifi ed Results for this AM CDT fever cause procedure are i n the results section. CBC WITH PLATELETS Routine 12/21/2015 7:40 Fever, unspecified Results for this AM CDT fever cause procedure are i n the results section. GLUCOSE BY METER Routine 12/21/2015 2:37 Fever, unspecified Re sults for this AM CDT fever cause procedure are i n the results section. GLUCOSE BY METER Routine 12/20/2015 9:08 Fever, unspecified Re sults for this PM TOE [facility] fever cause procedure are i n the results section. GLUCOSE BY METER Routine 12/20/2015 4:45 Fever, unspecified Re sults for this PM TOE [facility] fever cause procedure are i n the results section. GLUCOSE BY METER Routine 12/20/2015 12:23 Fever, unspecified R esults for this PM TOE [facility] fever cause procedure are i n the results section. VANCOMYCIN LEVEL Routine 12/20/2015 9:10 Fever, unspecified Re sults for this AM TOE [facility] fever cause procedure are i n the results section. INR Routine 12/20/2015 9:10 Fever, unspecified Result s for this AM TOE [facility] fever cause procedure are i n the results section. BASIC METABOLIC PANEL Routine 12/20/2015 9:10 Fever, unspecifi ed Results for this AM TOE [facility] fever cause procedure are i n the results section. CBC WITH PLATELETS Routine 12/20/2015 9:10 Fever, unspecified Results for this AM TOE [facility] fever cause procedure are i n the results section. GLUCOSE BY METER Routine 12/20/2015 7:44 Fever, unspecified Re sults for this AM TOE [facility] fever cause procedure are i n the results section. GLUCOSE BY METER Routine 12/20/2015 1:54 Fever, unspecified Re sults for this AM TOE [facility] fever cause procedure are i n the results section. GLUCOSE BY METER Routine 12/19/2015 9:32 Fever, unspecified Re sults for this PM TOE [facility] fever cause procedure are i n the results section. GLUCOSE BY METER Routine 12/19/2015 7:22 Fever, unspecified Re sults for this PM TOE [facility] fever cause procedure are i n the results section. GLUCOSE BY METER Routine 12/19/2015 6:21 Fever, unspecified Re sults for this PM TOE [facility] fever cause procedure are i n the results section. WOUND CULTURE AEROBIC Routine 12/19/2015 6:01 Fever, unspecifi ed Results for this BACTERIAL PM TOE [facility] fever cause procedure are i n the results section. GRAM STAIN Routine 12/19/2015 6:01 Fever, unspecified Result s for this PM TOE [facility] fever cause procedure are i n the results section. ANAEROBIC BACTERIAL Routine 12/19/2015 6:01 Fever, unspecified Results for this CULTURE ROUTINE PM TOE [facility] fever cause procedure ar e in the results section. GLUCOSE BY METER Routine 12/19/2015 5:24 Fever, unspecified Re sults for this PM TOE [facility] fever cause procedure are i n the results section. IRRIGATION AND 12/19/2015 5:22 abscess left thigh DEBRIDEMENT, LOWER PM TOE [facility] at ligated EXTREMITY hemodialysis graft GLUCOSE BY METER Routine 12/19/2015 3:32 Fever, unspecified Re sults for this PM TOE [facility] fever cause procedure are i n the results section. GLUCOSE BY METER Routine 12/19/2015 1:06 Fever, unspecified Re sults for this PM TOE [facility] fever cause procedure are i n the results section. INFLUENZA A AND B & Routine 12/19/2015 8:57 Fever, unspecified Results for this RSV BY PCR AM TOE [facility] fever cause procedure are i n the results section. WOUND CULTURE AEROBIC Routine 12/19/2015 8:40 Fever, unspecifi ed Results for this BACTERIAL AM TOE [facility] fever cause procedure are i n the results section. GRAM STAIN Routine 12/19/2015 8:40 Fever, unspecified Result s for this AM TOE [facility] fever cause procedure are i n the results section. INR Routine 12/19/2015 8:11 Fever, unspecified Result s for this AM TOE [facility] STITCH[place]NS fever cause procedure are i n the results section. BASIC METABOLIC PANEL Routine 12/19/2015 8:11 Fever, unspecifi ed Results for this AM TOE [employer]MER [facility] fever cause procedure are i n the results section. GLUCOSE BY METER Routine 12/19/2015 7:17 Fever, unspecified Re sults for this AM TOE FORMER [place] fever cause procedure are i n the results section. GLUCOSE BY METER Routine 12/19/2015 1:57 Fever, unspecified Re sults for this AM TOE FORMER [place] fever cause procedure are i n the results section. GLUCOSE BY METER Routine 12/18/2015 9:19 Fever, unspecified Re sults for this PM TOE FORMER [place] fever cause procedure are i n the results section. GLUCOSE BY METER Routine 12/18/2015 5:28 Fever, unspecified Re sults for this PM TOE FORMER [place] fever cause procedure are i n the results section. GLUCOSE BY METER Routine 12/18/2015 12:43 Fever, unspecified R esults for this PM TOE [employer]MER [place] fever cause procedure are i n the results section. BLOOD CULTURE Routine 12/18/2015 10:00 Fever, unspecified Resu lts for this AM TOE [employer]MER [facility] fever cause procedure are i n the results section. VANCOMYCIN LEVEL Routine 12/18/2015 8:00 Fever, unspecified Re sults for this AM TOE [employer]MER [place] fever cause procedure are i n the results section. INR Routine 12/18/2015 8:00 Fever, unspecified Result s for this AM TOE [employer]MER [place] fever cause procedure are i n the results section. HEMOGLOBIN A1C Routine 12/18/2015 8:00 Fever, unspecified Resu lts for this AM TOE [employer]MER [facility] fever cause procedure are i n the results section. BASIC METABOLIC PANEL Routine 12/18/2015 8:00 Fever, unspecifi ed Results for this AM TOE [employer]MER [place] fever cause procedure are i n the results section. CBC WITH PLATELETS Routine 12/18/2015 8:00 Fever, unspecified Results for this AM TOE FORMER [place] fever cause procedure are i n the results section. GLUCOSE BY METER Routine 12/18/2015 6:49 Fever Results for this AM TOE FORMER [facility] procedure are i n the results section. GLUCOSE BY METER Routine 12/18/2015 2:19 Fever Results for this AM TOE FORMER [facility] procedure are i n the results section. GLUCOSE BY METER Routine 12/17/2015 9:35 Fever Results for this PM TOE [employer]MER [facility] procedure are i n the results section. BLOOD CULTURE STAT 12/17/2015 7:45 Fever Results for this PM TOE [employer]MER [facility] procedure are i n the results section. GLUCOSE BY METER Routine 12/17/2015 4:03 Fever Results for this PM TOE FORMER [facility] procedure are i n the results section. BLOOD CULTURE Routine 12/17/2015 3:46 Fever Results for this PM TOE [employer]MER [facility] procedure are i n the results section. ECHO COMPLETE Routine 12/17/2015 3:39 Results for this PM TOE [employer]MER [facility] procedure are i n the results section. LACTIC ACID Routine 12/17/2015 3:02 Fever Results for this PM TOE [employer]MER [facility] procedure are i n the results section. BLOOD CULTURE STAT 12/17/2015 3:02 Fever Results for this PM TOE FORMER [facility] procedure are i n the results section. BLOOD CULTURE STAT 12/17/2015 2:48 Fever Results for this PM TOE FORMER [facility] procedure are i n the results section. CBC WITH PLATELETS & Routine 12/17/2015 8:12 Fever Resu lts for this DIFFERENTIAL AM TOE FORMER [facility] procedure are i n the results section. INR Routine 12/17/2015 8:12 Fever Results for this AM TOE FORMER [facility] procedure are i n the results section. BASIC METABOLIC PANEL Routine 12/17/2015 8:12 Fever Res ults for this AM TOE FORMER [facility] procedure are i n the results section. VANCOMYCIN LEVEL Timed 12/16/2015 8:15 Fever Results for this PM TOE [employer]MER [facility] procedure are i n the results section. BLOOD CULTURE STAT 12/16/2015 5:14 Fever Results for this PM TOE [employer]MER [facility] procedure are i n the results section. INFLUENZA A/B ANTIGEN STAT 12/16/2015 4:48 Fever Res ults for this PM TOE [employer]MER [facility] procedure are i n the results section. XR CHEST 2 VIEWS STAT 12/16/2015 3:19 Results for this PM TOE [employer]MER [facility] procedure are i n the results section. PROCALCITONIN Routine 12/16/2015 3:01 Fever Results for this PM TOE FORMER [facility] procedure are i n the results section. CBC WITH PLATELETS & STAT 12/16/2015 3:01 Resu lts for this DIFFERENTIAL PM TOE FORMER [facility] procedure are i n the results section. INR STAT 12/16/2015 3:01 Results for this PM TOE FORMER [facility] procedure are i n the results section. LIPASE STAT 12/16/2015 3:01 Results for this PM TOE FORMER [facility] procedure are i n the results section. COMPREHENSIVE STAT 12/16/2015 3:01 Results for this METABOLIC PANEL PM TOE FORMER [facility] procedure ar e in the results section. EKG 12-LEAD, TRACING STAT 12/16/2015 2:48 Resu lts for this ONLY PM TOE [employer]MER [facility] procedure are i n the results section. BLOOD CULTURE Timed 12/16/2015 7:30 Fever Results for this AM TOE FORMER [facility] procedure are i n the results section. BLOOD CULTURE Timed 12/16/2015 7:30 Fever Results for this AM TOE FORMER [facility] procedure are i n the results section. documented in this encounter Results (ABNORMAL) Glucose by meter (12/22/2015 11:02 AM CDT) P athologist Signature Glucose 193 (H) 70 - 99 POINT OF CARE mg/dL TEST, GLUCOSE Specimen Anatomical Collection Method Collection Time Receive d Time (Source) Location / / Volume Laterality 12/22/2015 11:02 12/22/2015 AM CDT 11:06 AM CDT Enrike DEAN - DAVID POCT Performing Organization Address City/[facility] Phon e Number FV POINT OF CARE TEST, GLUCOSE POINT OF CARE TEST, GLUCOSE Glucose by meter (12/22/2015 7:54 AM CDT) P athologist Signature Glucose 88 70 - 99 POINT OF CARE mg/dL TEST, GLUCOSE Specimen Anatomical Collection Method Collection Time Receive d Time (Source) Location / / Volume Laterality 12/22/2015 7:54 AM 6 8:01 CDT AM CDT Enrike DEAN - BEXIANG POCT Performing Organization Address City/[facility] Phon e Number FV POINT OF CARE TEST, GLUCOSE POINT OF CARE TEST, GLUCOSE (ABNORMAL) INR (12/22/2015 7:54 AM CDT) P athologist Signature INR 1.90 (H) 0.86 - 1.14 [facility] Specimen Anatomical Collection Method Collection Time Receive d Time (Source) Location / / Volume Laterality Blood specimen 12/22/2015 7:54 AM 016 8:25 (specimen) CDT AM CDT Vi Rocha MD LAB - BLOOD ORDERABLES Performing Organization Address City/[facility]/ZIP Code Phon e Number [facility] [address] [phone] [facility] [address] [address], [place] [phone] (ABNORMAL) CBC with platelets (12/22/2015 7:54 AM CDT) Analysis Performed At Patho logist Time Signature WBC 5.5 4.0 - 11.0 [place] 10e9/L [facility] RBC Count 3.11 (L) 4.4 - 5.9 [place] 10e12/L [facility] Hemoglobin 7.8 (L) 13.3 - [place] 17.7 g/dL [facility] Hematocrit 25.5 (L) 40.0 - [place] 53.0 % [facility] MCV 82 78 - 100 [facility] MCH 25.1 (L) 26.5 - [place] 33.0 pg [facility] MCHC 30.6 (L) 31.5 - [place] 36.5 g/dL [facility] RDW 18.1 (H) 10.0 - [place] 15.0 % [facility] Platelet Count 154 150 - 450 [place] 10e9/L [facility] Specimen Anatomical Collection Method Collection Time Receive d Time (Source) Location / / Volume Laterality Blood specimen 12/22/2015 7:54 AM 016 8:25 (specimen) CDT AM CDT Koko Singh DO LAB - BLOOD ORDERABLES Performing Organization Address City/State/ZIP Code Phon e Number M [facility] [address] [phone] [facility] [address] [address], [place] [phone] (ABNORMAL) Basic metabolic panel (12/22/2015 7:54 AM CDT) [facility] Signature Sodium 132 (L) 133 - 144 [place] mmol/L [facility] Potassium 5.4 (H) 3.4 - 5.3 [place] mmol/L [facility] Chloride 99 94 - 109 [place] mmol/L [facility] Carbon Dioxide 27 20 - 32 [place] mmol/L [facility] Anion Gap 6 3 - 14 [place] mmol/L [facility] Glucose 90 70 - 99 [place] mg/dL [facility] Urea Nitrogen 62 (H) 7 - 30 [place] mg/dL [facility] Creatinine 9.27 (H) 0.66 - [place] 1.25 mg/dL [facility] GFR Estimate 6 (L) >60 [place] mL/min/1.[address] Comment: Non GFR Calc GFR Estimate If Black 7 (L) >60 mL/min/1.7m2 F [facility] Comment: GFR Calc Calcium 8.7 8.5 - 10.1 mg/dL [facility] Specimen Anatomical Collection Method Collection Time Receive d Time (Source) Location / / Volume Laterality Blood specimen 12/22/2015 7:54 AM 016 8:25 (specimen) CDT AM CDT Koko Singh DO LAB - BLOOD ORDERABLES Performing Organization Address City/State/ZIP Code Phon e Number M [facility] [address] [phone] [facility] [address] [place] [address], [facility] [phone] Glucose by meter (12/22/2015 1:36 AM CDT) P athologist Signature Glucose 88 70 - 99 POINT OF CARE mg/dL TEST, GLUCOSE Specimen Anatomical Collection Method Collection Time Receive d Time (Source) Location / / Volume Laterality 12/22/2015 1:36 AM 6 1:40 CDT AM CDT Enrike Navarro MD LAB - BEAKER POCT Performing Organization Address City/State/ZIP Code Phon e Number FV POINT OF CARE TEST, GLUCOSE POINT OF CARE TEST, GLUCOSE (ABNORMAL) Glucose by meter (12/21/2015 9:26 PM CDT) P athologist Signature Glucose 124 (H) 70 - 99 POINT OF CARE mg/dL TEST, GLUCOSE Specimen Anatomical Collection Method Collection Time Receive d Time (Source) Location / / Volume Laterality 12/21/2015 9:26 PM 6 9:30 CDT PM CDT Enrike DEAN - DAVID POCT Performing Organization Address City/[facility]/ZIP Code Phon e Number FV POINT OF CARE TEST, GLUCOSE POINT OF CARE TEST, GLUCOSE Glucose by meter (12/21/2015 5:23 PM CDT) P athologist Signature Glucose 88 70 - 99 POINT OF CARE mg/dL TEST, GLUCOSE Specimen Anatomical Collection Method Collection Time Receive d Time (Source) Location / / Volume Laterality 12/21/2015 5:23 PM 6 5:31 CDT PM CDT Enrike DEAN - DAVID POCT Performing Organization Address City/[facility]/ZIP Code Phon e Number FV POINT OF CARE TEST, GLUCOSE POINT OF CARE TEST, GLUCOSE (ABNORMAL) Glucose by meter (12/21/2015 11:02 AM CDT) P athologist Signature Glucose 126 (H) 70 - 99 POINT OF CARE mg/dL TEST, GLUCOSE Specimen Anatomical Collection Method Collection Time Receive d Time (Source) Location / / Volume Laterality 12/21/2015 11:02 12/21/2015 AM CDT 11:05 AM CDT Enrike DEAN - BEXIANG POCT Performing Organization Address City/[facility]/ZIP Code Phon e Number FV POINT OF CARE TEST, GLUCOSE POINT OF CARE TEST, GLUCOSE (ABNORMAL) INR (12/21/2015 7:40 AM CDT) P athologist Signature INR 2.02 (H) 0.86 - 1.14 [facility] Specimen Anatomical Collection Method Collection Time Receive d Time (Source) Location / / Volume Laterality Blood specimen 12/21/2015 7:40 AM 016 8:09 (specimen) CDT AM CDT Vi Rocha MD LAB - BLOOD ORDERABLES Performing Organization Address City/[facility]/ZIP [facility] Phon e Number [facility] [address] [phone] [facility] [address] [address], [facility] [phone] (ABNORMAL) CBC with platelets (12/21/2015 7:40 AM CDT) Analysis Performed At [facility] Time Signature WBC 5.2 4.0 - 11.0 [place] 10e9/L [facility] RBC Count 3.29 (L) 4.4 - 5.9 [place] 10e12/L [facility] Hemoglobin 8.2 (L) 13.3 - [place] 17.7 g/dL [facility] Hematocrit 27.2 (L) 40.0 - [place] 53.0 % [facility] MCV 83 78 - 100 [place] fl [facility] MCH 24.9 (L) 26.5 - [place] 33.0 pg [facility] MCHC 30.1 (L) 31.5 - [place] 36.5 g/dL [facility] RDW 17.8 (H) 10.0 - [place] 15.0 % [facility] Platelet Count 153 150 - 450 [place] 10e9/L [facility] Specimen Anatomical Collection Method Collection Time Receive d Time (Source) Location / / Volume Laterality Blood specimen 12/21/2015 7:40 AM 016 8:09 (specimen) CDT AM CDT Danis Kim MD LAB - BLOOD ORDERABLES Performing Organization Address City/State/ZIP Code Phon e Number [facility] [address] [phone] [facility] [address] [address], [facility] [phone] (ABNORMAL) Basic metabolic panel (12/21/2015 7:40 AM CDT) Analysis Performed At [facility] Signature Sodium 135 133 - 144 [place] mmol/L [facility] Potassium 4.7 3.4 - 5.3 [place] mmol/L [facility] Chloride 99 94 - 109 [place] mmol/L [facility] Carbon Dioxide 27 20 - 32 [place] mmol/L [facility] Anion Gap 9 3 - 14 [place] mmol/L [facility] Glucose 110 (H) 70 - 99 [place] mg/dL [facility] Urea Nitrogen 50 (H) 7 - 30 [place] mg/dL [facility] Creatinine 7.71 (H) 0.66 - [place] 1.25 mg/dL [facility] GFR Estimate 7 (L) >60 [place] mL/min/1.[address] Comment: Non GFR Calc GFR Estimate If Black 9 (L) >60 mL/min/1.7m2 F [facility] Comment: GFR Calc Calcium 8.4 (L) 8.5 - 10.1 mg/dL [facility] Specimen Anatomical Collection Method Collection Time Receive d Time (Source) Location / / Volume Laterality Blood specimen 12/21/2015 7:40 AM 016 8:09 (specimen) CDT AM CDT Danis Kim MD LAB - BLOOD ORDERABLES Performing Organization Address City/[facility]/ZIP [facility] Phon e Number [facility] [address] [phone] [facility] [address] [place] [address], [facility] [phone] (ABNORMAL) Glucose by meter (12/21/2015 3:37 AM CDT) P athologist Signature Glucose 134 (H) 70 - 99 POINT OF CARE mg/dL TEST, GLUCOSE Specimen Anatomical Collection Method Collection Time Receive d Time (Source) Location / / Volume Laterality 12/21/2015 3:37 AM 6 3:46 CDT AM CDT Enrike DEAN - BEXIANG POCT Performing Organization Address City/State/ZIP Code Phon e Number FV POINT OF CARE TEST, GLUCOSE POINT OF CARE TEST, GLUCOSE (ABNORMAL) Glucose by meter (12/20/2015 9:08 PM TOE FORMER [employer]D[facility]NS) P athologist Signature Glucose 134 (H) 70 - 99 POINT OF CARE mg/dL TEST, GLUCOSE Specimen Anatomical Collection Method Collection Time Receive d Time (Source) Location / / Volume Laterality 12/20/2015 9:08 PM 6 9:15 TOE [employer]MER [facility] PM TOE FORMER [facility] Enrike DEAN - DAVID POCT Performing Organization Address City/State/ZIP Code Phon e Number FV POINT OF CARE TEST, GLUCOSE POINT OF CARE TEST, GLUCOSE (ABNORMAL) Glucose by meter (12/20/2015 4:45 PM TOE FORMER [employer]) P athologist Signature Glucose 143 (H) 70 - 99 POINT OF CARE mg/dL TEST, GLUCOSE Specimen Anatomical Collection Method Collection Time Receive d Time (Source) Location / / Volume Laterality 12/20/2015 4:45 PM 6 4:51 TOE FORMER [facility] PM TOE FORMER [facility] Enrike Navarro MD LAB - BEXIANG POCT Performing Organization Address City/State/ZIP Code Phon e Number FV POINT OF CARE TEST, GLUCOSE POINT OF CARE TEST, GLUCOSE (ABNORMAL) Glucose by meter (12/20/2015 12:23 PM TOE FORMER [facility]) P athologist Signature Glucose 156 (H) 70 - 99 POINT OF CARE mg/dL TEST, GLUCOSE Specimen Anatomical Collection Method Collection Time Receive d Time (Source) Location / / Volume Laterality 12/20/2015 12:23 12/20/2015 PM TOE FORMER [facility] 12:25 PM TOE FORMER [employer] Enrike DEAN - BEXIANG POCT Performing Organization Address City/[facility]/ZIP [facility] Phon e Number FV POINT OF CARE TEST, GLUCOSE POINT OF CARE TEST, GLUCOSE (ABNORMAL) INR (12/20/2015 9:10 AM TOE FORMER [facility]) P athologist Signature INR 2.31 (H) 0.86 - 1.14 [facility] Specimen Anatomical Collection Method Collection Time Receive d Time (Source) Location / / Volume Laterality Blood specimen 12/20/2015 9:10 AM 016 9:19 (specimen) TOE FORMER [employer]D[place]NS AM TOE FORMER [employer] Vi Rocha MD LAB - BLOOD ORDERABLES Performing Organization Address City/[facility]/ZIP Code Phon e Number [facility] [address] [phone] [facility] [address] [address], U [phone] (ABNORMAL) CBC with platelets (12/20/2015 9:10 AM TOE FORMER [facility]) Analysis Performed At Patho logist Time Signature WBC 5.3 4.0 - 11.0 [place] [address]e9/L [facility] RBC Count 3.38 (L) 4.4 - 5.9 [place] 10e12/L [facility] Hemoglobin 8.5 (L) 13.3 - [place] 17.7 g/dL [facility] Hematocrit 27.2 (L) 40.0 - [place] 53.0 % [facility] MCV 81 78 - 100 [place] fl [facility] MCH 25.1 (L) 26.5 - [place] 33.0 pg [facility] MCHC 31.3 (L) 31.5 - [place] 36.5 g/dL [facility] RDW 17.7 (H) 10.0 - [place] 15.0 % [facility] Platelet Count 147 (L) 150 - 450 [place] 10e9/L [facility] Specimen Anatomical Collection Method Collection Time Receive d Time (Source) Location / / Volume Laterality Blood specimen 12/20/2015 9:10 AM 016 9:19 (specimen) TOE FORMER [employer]ITCHD[facility]NS AM TOE FORMER [employer] Vi Rocha MD LAB - BLOOD ORDERABLES Performing Organization Address City/State/ZIP Code Phon e Number [facility] [address] [phone] [facility] [address] [address], [facility] [phone] (ABNORMAL) Basic metabolic panel (12/20/2015 9:10 AM TOE FORMER [facility]D[facility]) Analysis Performed At Patho logist Time Signature Sodium 137 133 - 144 [place] mmol/L [facility] Potassium 3.1 (L) 3.4 - 5.3 [place] mmol/L [facility] Chloride 98 94 - 109 [place] mmol/L [facility] Carbon Dioxide 31 20 - 32 [place] mmol/L [facility] Anion Gap 8 3 - 14 [place] mmol/L [facility] Glucose 107 (H) 70 - 99 [place] mg/dL [facility] Urea Nitrogen 11 7 - 30 [place] mg/dL [facility] Creatinine 1.70 (H) 0.66 - [place] 1.25 mg/dL [facility] GFR Estimate 42 (L) >60 [place] mL/min/1.[address] [place] [address] Comment: Non GFR Calc GFR Estimate If Black 51 (L) >60 mL/min/1.7m2 F [facility] Comment: GFR Calc Calcium 7.4 (L) 8.5 - 10.1 mg/dL [facility] Specimen Anatomical Collection Method Collection Time Receive d Time (Source) Location / / Volume Laterality Blood specimen 12/20/2015 9:10 AM 016 9:19 (specimen) TOE FORMER [employer]ITCHD[facility]NS AM TOE FORMER [employer] Vi Rocha MD LAB - BLOOD ORDERABLES Performing Organization Address City/State/ZIP Code Phon e Number [facility] [address] [place] [address] [facility] [address] [place] [address], [place] [phone] Vancomycin level (12/20/2015 9:10 AM TOE FORMER [employer]D[facility]) P athologist Signature Vancomycin 18.8 mg/L [facility] Comment: Traditional Dosing therapeutic Range: ?Trough 8-20 mg/L ?Peak 20-50 mg/L Specimen Anatomical Collection Method Collection Time Receive d Time (Source) Location / / Volume Laterality Blood specimen 12/20/2015 9:10 AM 016 9:19 (specimen) TOE FORMER [employer]D[place] AM TOE FORMER [employer] Vi Rocha MD LAB - BLOOD ORDERABLES Performing Organization Address City/State/ZIP Code Phon e Number [facility] [address] [place] [address] [facility] [address] [place] [address], [place] [phone] (ABNORMAL) Glucose by meter (12/20/2015 7:44 AM TOE FORMER [employer]) P athologist Signature Glucose 133 (H) 70 - 99 POINT OF CARE mg/dL TEST, GLUCOSE Specimen Anatomical Collection Method Collection Time Receive d Time (Source) Location / / Volume Laterality 12/20/2015 7:44 AM 6 7:50 TOE FORMER [employer] AM TOE FORMER [employer] Enrike Navarro MD LAB - BEAKER POCT Performing Organization Address City/State/ZIP Code Phon e Number FV POINT OF CARE TEST, GLUCOSE POINT OF CARE TEST, GLUCOSE (ABNORMAL) Glucose by meter (12/20/2015 1:54 AM TOE FORMER [employer]) P athologist Signature Glucose 121 (H) 70 - 99 POINT OF CARE mg/dL TEST, GLUCOSE Specimen Anatomical Collection Method Collection Time Receive d Time (Source) Location / / Volume Laterality 12/20/2015 1:54 AM 6 2:01 TOE FORMER [employer] AM TOE FORMER [employer] Enrike DEAN - DAVID POCT Performing Organization Address City/State/ZIP Code Phon e Number FV POINT OF CARE TEST, GLUCOSE POINT OF CARE TEST, GLUCOSE (ABNORMAL) Glucose by meter (12/19/2015 9:32 PM TOE FORMER [employer]) P athologist Signature Glucose 124 (H) 70 - 99 POINT OF CARE mg/dL TEST, GLUCOSE Specimen Anatomical Collection Method Collection Time Receive d Time (Source) Location / / Volume Laterality 12/19/2015 9:32 PM 6 9:35 TOE FORMER [employer] PM TOE FORMER [employer] Enrike DEAN - DAVID POCT Performing Organization Address City/[facility]/ZIP Code Phon e Number FV POINT OF CARE TEST, GLUCOSE POINT OF CARE TEST, GLUCOSE Glucose by meter (12/19/2015 7:22 PM TOE FORMER [employer]D[place]) P athologist Signature Glucose 73 70 - 99 POINT OF CARE mg/dL TEST, GLUCOSE Specimen Anatomical Collection Method Collection Time Receive d Time (Source) Location / / Volume Laterality 12/19/2015 7:22 PM 6 7:25 TOE FORMER [employer] PM TOE FORMER [employer] Enrike DEAN - DAVID POCT Performing Organization Address City/State/ZIP Code Phon e Number FV POINT OF CARE TEST, GLUCOSE POINT OF CARE TEST, GLUCOSE Glucose by meter (12/19/2015 6:21 PM TOE FORMER [employer]) P athologist Signature Glucose 85 70 - 99 POINT OF CARE mg/dL TEST, GLUCOSE Specimen Anatomical Collection Method Collection Time Receive d Time (Source) Location / / Volume Laterality 12/19/2015 6:21 PM 03/12/201 6 7:05 TOE FORMER [employer] AM TOE FORMER STITCHDOWNS Enrike Navarro MD LAB - BEAKER POCT Performing Organization Address City/State/ZIP Code Phon e Number FV POINT OF CARE TEST, GLUCOSE POINT OF CARE TEST, GLUCOSE (ABNORMAL) Wound Culture Aerobic Bacterial (12/19/2015 6:01 PM TOE FORMER [facility]) Component Value Ref Test Analysis Performed At [facility] gist Range Method Time Signature Specimen Wound Left [facility]igh [facility] [place] Culture Micro Moderate growth Staphylococc us aureus This isolate is presumed to be clindamycin INFECTIOUS resistant based on detectio n of inducible clindamycin resistance. Erythromycin DISEASE and clindamycin are resistant, therefore, they are no t recommended for use. DIAGNOSTIC (A) LABORATORY Micro Report FINAL 12/21/2015 INFECTIOUS Status DISEASE DIAGNOSTIC LABORATORY Organism: Moderate growth Staphylococc us aureus This isolate is presumed to be clindamycin INFECTIOUS resistant based on detectio n of inducible clindamycin resistance. Erythromycin DISEASE and clindamycin are resistant, therefore, they are no t recommended for use. DIAGNOSTIC LABORATORY Specimen (Source) Anatomical Collection Method Collection Time Re ceived Time Location / / Volume Laterality Swab (specimen) STRUCTURE OF LEFT 12/19/2015 6:01 PM LOWER LIMB / TOE FORMER STITCHDOWNS Unknown Organism Antibiotic Method Susceptibility Moderate growth Ciprofloxacin <=0.5 Susceptibl e ug/mL staphylococcus aureus this isolate is presumed to be clindamycin resistant based on detection of inducible clindamycin resistance. erythromycin and clindamycin are resistant, therefo Moderate growth Clindamycin >8.0 Resistant u g/mL staphylococcus aureus this isolate is presumed to be clindamycin resistant based on detection of inducible clindamycin resistance. erythromycin and clindamycin are resistant, therefo Moderate growth Erythromycin >=8 Resistant ug /mL staphylococcus aureus this isolate is presumed to be clindamycin resistant based on detection of inducible clindamycin resistance. erythromycin and clindamycin are resistant, therefo Moderate growth Gentamicin <=0.5 Susceptibl e ug/mL staphylococcus aureus this isolate is presumed to be clindamycin resistant based on detection of inducible clindamycin resistance. erythromycin and clindamycin are resistant, therefo Moderate growth Levofloxacin 0.25 Susceptible ug/mL staphylococcus aureus this isolate is presumed to be clindamycin resistant based on detection of inducible clindamycin resistance. erythromycin and clindamycin are resistant, therefo Moderate growth Oxacillin 0.5 Susceptible ug/mL staphylococcus aureus this isolate is presumed to be clindamycin resistant based on detection of inducible clindamycin resistance. erythromycin and clindamycin are resistant, therefo Moderate growth Penicillin >2.0 Resistant u g/mL staphylococcus aureus this isolate is presumed to be clindamycin resistant based on detection of inducible clindamycin resistance. erythromycin and clindamycin are resistant, therefo Moderate growth Tetracycline <=1 Susceptible ug/mL staphylococcus aureus this isolate is presumed to be clindamycin resistant based on detection of inducible clindamycin resistance. erythromycin and clindamycin are resistant, therefo Moderate growth Trimethoprim/Sulfamethoxa <=.5/9 .5 Susceptible ug/mL staphylococcus aureus this zole isolate is presumed to be clindamycin resistant based on detection of inducible clindamycin resistance. erythromycin and clindamycin are resistant, therefo Moderate growth Vancomycin 1 Susceptible ug /mL staphylococcus aureus this isolate is presumed to be clindamycin resistant based on detection of inducible clindamycin resistance. erythromycin and clindamycin are resistant, therefo Mike Aceves MD LAB - MICRO GENERAL ORD ERABLES Performing Organization Address City/[facility] Phon e Number INFECTIOUS DISEASES [address] [place] [address] DIAGNOSTIC LABORATORY, [address] INFECTIOUS DISEASE [address] [place] [address] DIAGNOSTIC LABORATORY (ABNORMAL) Gram stain (12/19/2015 6:01 PM TOE FORMER STITCHDOWNS) [facility] Method Time Signature Specimen Wound Left [facility] Gram Stain Rare Gram positive cocci MICR O RAPID Moderate PMNs seen TESTING LAB (A) Micro Report FINAL MICRO RAPID Status 12/19/2015 TESTING LAB Specimen (Source) Anatomical Collection Method Collection Time Re ceived Time Location / / Volume Laterality Swab (specimen) STRUCTURE OF LEFT 12/19/2015 6:01 PM LOWER LIMB / TOE FORMER STITCHDOWNS Unknown Mike Aceves MD LAB - MICRO GENERAL ORD ERABLES Performing Organization Address City/[facility] Phon e Number MICRO RAPID TESTING LAB [address] [place] [address] Anaerobic bacterial culture (12/19/2015 6:01 PM TOE FORMER STITCHDOWNS) [facility] Method Time Signature Specimen Wound Left [facility] BANK Special Received in [facility] anaerobic [place] MEDICAL tubes. [facility] Culture Micro No anaerobes INFECTIOUS isolated DISEASE DIAGNOSTIC LABORATORY Micro Report FINAL INFECTIOUS Status 12/26/2015 DISEASE DIAGNOSTIC LABORATORY Specimen (Source) Anatomical Collection Method Collection Time Re ceived Time Location / / Volume Laterality Swab (specimen) STRUCTURE OF LEFT 12/19/2015 6:01 PM LOWER LIMB / TOE FORMER STITCHDOWNS Unknown Mike Aceves MD LAB - MICRO GENERAL ORD ERABLES Performing Organization Address City/State/ZIP Code Phon e Number INFECTIOUS DISEASES [address] [place] [address] DIAGNOSTIC LABORATORY, [address] [address] INFECTIOUS DISEASE [address] [place], [place] [address] DIAGNOSTIC LABORATORY Glucose by meter (12/19/2015 5:24 PM TOE FORMER STITCHDOWNS) P athologist Signature Glucose 86 70 - 99 POINT OF CARE mg/dL TEST, GLUCOSE Specimen Anatomical Collection Method Collection Time Receive d Time (Source) Location / / Volume Laterality 12/19/2015 5:24 PM 6 5:30 TOE FORMER STITCHDOWNS PM TOE FORMER STITCHDOWNS Enrike DEAN - DAVID POCT Performing Organization Address City/State/ZIP Code Phon e Number FV POINT OF CARE TEST, GLUCOSE POINT OF CARE TEST, GLUCOSE Glucose by meter (12/19/2015 3:32 PM TOE FORMER STITCHDOWNS) P athologist Signature Glucose 88 70 - 99 POINT OF CARE mg/dL TEST, GLUCOSE Specimen Anatomical Collection Method Collection Time Receive d Time (Source) Location / / Volume Laterality 12/19/2015 3:32 PM 6 3:35 TOE FORMER STITCHDOWNS PM TOE FORMER STITCHDOWNS Enrike DEAN - BEXIANG POCT Performing Organization Address City/State/ZIP Code Phon e Number FV POINT OF CARE TEST, GLUCOSE POINT OF CARE TEST, GLUCOSE (ABNORMAL) Glucose by meter (12/19/2015 1:06 PM TOE FORMER STITCHDOWNS) P athologist Signature Glucose 134 (H) 70 - 99 POINT OF CARE mg/dL TEST, GLUCOSE Specimen Anatomical Collection Method Collection Time Receive d Time (Source) Location / / Volume Laterality 12/19/2015 1:06 PM 6 1:10 TOE FORMER STITCHDOWNS PM TOE FORMER STITCHDOWNS Enrike Navarro MD LAB - BEAKER POCT Performing Organization Address City/[facility]/ZIP Code Phon e Number FV POINT OF CARE TEST, GLUCOSE POINT OF CARE TEST, GLUCOSE Influenza A and B and RSV PCR (12/19/2015 8:57 AM TOE FORMER STITCHDOWNS) Component Value Ref Test Analysis Performed At [facility] Range Method Time Signature Specimen Nares [facility] Influenza A PCR Negative NEG [facility] Flu A target RNA not detected, presumed negative for Influenza A or the viral [place] [facility]ICAL load is below the limit of detection. [facility] Influenza B PCR Negative [facility]G [facility] Flu B target RNA not detected, presumed negative for Influenza B or the viral [place] [facility] load is below the limit of detection. [facility] Resp Syncytial Negative NEG [facility] Virus RSV target RNA not detected , presumed negative for Respiratory Syncitial Virus [place] [facility] or the viral load is below the limit of detection. [facility] FDA approved assay performed using [employer] GeneXpert(R) r eal-time PCR. BANK Specimen Anatomical Collection Method Collection Time Receive d Time (Source) Location / / Volume Laterality SWAB FROM NASAL 12/19/2015 8:57 AM 2015 9:17 SINUS / Unknown TOE FORMER STITCHDOWNS AM TOE FORMER STITCHDOWNS Raúl Wisdom MD LAB - MICRO GENERAL ORDERABL ES Performing Organization Address City/[facility]/ZIP Code Phon e Number [facility] [address] [place] [address] [facility] [address] [place] [address], [facility] [phone] (ABNORMAL) Gram stain (12/19/2015 8:40 AM TOE FORMER STITCHDOWNS) [facility] Method Time Signature Specimen Groin LEFT [facility] Gram Stain Few Gram positive cocci MICRO RAPID Many PMNs seen TESTING LAB Few WBC'S seen (A) Micro Report FINAL MICRO RAPID Status 12/19/2015 TESTING LAB Specimen Anatomical Collection Method Collection Time Receive d Time (Source) Location / / Volume Laterality Specimen from 12/19/2015 8:40 AM 12/19/19 16 9:14 wound (specimen) TOE FORMER STITCHDOWNS AM TOE FORMER STITCHDOWNS Raúl Wisdom MD LAB - MICRO GENERAL ORDERABL ES Performing Organization Address City/[facility]/ZIP Code Phon e Number MICRO RAPID TESTING LAB [address] [place] [address] [facility] [address] [place] [address], U [phone] (ABNORMAL) Wound Culture Aerobic Bacterial (12/19/2015 8:40 AM TOE FORMER STITCHDOWNS) Component Value Ref Test Analysis Performed At [facility] gist Range Method Time Signature Specimen Groin Left [facility] Culture Micro Moderate growth Staphylococc us aureus This isolate is presumed to be clindamycin INFECTIOUS resistant based on detectio n of inducible clindamycin resistance. Erythromycin DISEASE and clindamycin are resistant, therefore, they are no t recommended for use. DIAGNOSTIC (A) LABORATORY Micro Report FINAL 12/21/2015 INFECTIOUS Status DISEASE DIAGNOSTIC LABORATORY Organism: Moderate growth Staphylococc us aureus This isolate is presumed to be clindamycin INFECTIOUS resistant based on detectio n of inducible clindamycin resistance. Erythromycin DISEASE and clindamycin are resistant, therefore, they are no t recommended for use. DIAGNOSTIC LABORATORY Specimen Anatomical Collection Method Collection Time Receive d Time (Source) Location / / Volume Laterality Specimen from SPECIMEN FROM 12/19/2015 8:40 AM 016 9:14 wound (specimen) WOUND / Unknown TOE FORMER STITCHDOWNS AM TOE FORMER STITCHDOWNS Organism Antibiotic Method Susceptibility Moderate growth Ciprofloxacin <=0.5 Susceptibl e ug/mL staphylococcus aureus this isolate is presumed to be clindamycin resistant based on detection of inducible clindamycin resistance. erythromycin and clindamycin are resistant, therefo Moderate growth Clindamycin >8.0 Resistant u g/mL staphylococcus aureus this isolate is presumed to be clindamycin resistant based on detection of inducible clindamycin resistance. erythromycin and clindamycin are resistant, therefo Moderate growth Erythromycin >=8 Resistant ug /mL staphylococcus aureus this isolate is presumed to be clindamycin resistant based on detection of inducible clindamycin resistance. erythromycin and clindamycin are resistant, therefo Moderate growth Gentamicin <=0.5 Susceptibl e ug/mL staphylococcus aureus this isolate is presumed to be clindamycin resistant based on detection of inducible clindamycin resistance. erythromycin and clindamycin are resistant, therefo Moderate growth Levofloxacin 0.25 Susceptible ug/mL staphylococcus aureus this isolate is presumed to be clindamycin resistant based on detection of inducible clindamycin resistance. erythromycin and clindamycin are resistant, therefo Moderate growth Oxacillin 0.5 Susceptible ug/mL staphylococcus aureus this isolate is presumed to be clindamycin resistant based on detection of inducible clindamycin resistance. erythromycin and clindamycin are resistant, therefo Moderate growth Penicillin 0.06 Resistant u g/mL staphylococcus aureus this isolate is presumed to be clindamycin resistant based on detection of inducible clindamycin resistance. erythromycin and clindamycin are resistant, therefo Moderate growth Tetracycline <=1 Susceptible ug/mL staphylococcus aureus this isolate is presumed to be clindamycin resistant based on detection of inducible clindamycin resistance. erythromycin and clindamycin are resistant, therefo Moderate growth Trimethoprim/Sulfamethoxa <=.5/9 .5 Susceptible ug/mL staphylococcus aureus this zole isolate is presumed to be clindamycin resistant based on detection of inducible clindamycin resistance. erythromycin and clindamycin are resistant, therefo Moderate growth Vancomycin 1 Susceptible ug /mL staphylococcus aureus this isolate is presumed to be clindamycin resistant based on detection of inducible clindamycin resistance. erythromycin and clindamycin are resistant, therefo Raúl Wisdom MD LAB - MICRO GENERAL ORDERABL ES Performing Organization Address City/State/ZIP Code Phon e Number INFECTIOUS DISEASES [address] [place] [address] DIAGNOSTIC LABORATORY, [address] INFECTIOUS DISEASE [address] DIAGNOSTIC LABORATORY (ABNORMAL) INR (12/19/2015 8:11 AM TOE FORMER STITCHDOWNS) P athologist Signature INR 2.41 (H) 0.86 - 1.14 [facility] Specimen Anatomical Collection Method Collection Time Receive d Time (Source) Location / / Volume Laterality Blood specimen 12/19/2015 8:11 AM 016 8:16 (specimen) TOE FORMER STITCHDOWNS AM TOE FORMER STITCHDOWNS Vi Rocha MD LAB - BLOOD ORDERABLES Performing Organization Address City/State/ZIP Code Phon e Number [facility] [address] [phone] [facility] [address] [address], [place] [phone] (ABNORMAL) Basic metabolic panel (12/19/2015 8:11 AM TOE FORMER STITCHDOWNS) Analysis Performed At Patho logist Time Signature Sodium 130 (L) 133 - 144 [place] mmol/L [facility] Potassium 4.4 3.4 - 5.3 [place] mmol/L [facility] Chloride 95 94 - 109 [place] mmol/L [facility] Carbon Dioxide 26 20 - 32 [place] mmol/L [facility] Anion Gap 9 3 - 14 [place] mmol/L [facility] Glucose 132 (H) 70 - 99 [place] mg/dL [facility] Urea Nitrogen 50 (H) 7 - 30 [place] mg/dL [facility] Creatinine 8.35 (H) 0.66 - [place] 1.25 mg/dL [facility] GFR Estimate 7 (L) >60 [place] mL/min/1.[address] Comment: Non GFR Calc GFR Estimate If Black 8 (L) >60 mL/min/1.7m2 F [facility] Comment: GFR Calc Calcium 8.4 (L) 8.5 - 10.1 mg/dL [facility] Specimen Anatomical Collection Method Collection Time Receive d Time (Source) Location / / Volume Laterality Blood specimen 12/19/2015 8:11 AM 016 8:16 (specimen) TOE FORMER STITCHDOWNS AM TOE FORMER STITCHDOWNS Danis Kim MD LAB - BLOOD ORDERABLES Performing Organization Address City/State/ZIP Code Phon e Number [facility] [address] [phone] [facility] [address] [address], [facility] [phone] (ABNORMAL) Glucose by meter (12/19/2015 7:17 AM TOE FORMER STITCHDOWNS) P athologist Signature Glucose 104 (H) 70 - 99 POINT OF CARE mg/dL TEST, GLUCOSE Specimen Anatomical Collection Method Collection Time Receive d Time (Source) Location / / Volume Laterality 12/19/2015 7:17 AM 6 7:21 TOE FORMER STITCHDOWNS AM TOE FORMER STITCHDOWNS Enrike Navarro MD LAB - BEAKER POCT Performing Organization Address City/State/ZIP Code Phon e Number FV POINT OF CARE TEST, GLUCOSE POINT OF CARE TEST, GLUCOSE (ABNORMAL) Glucose by meter (12/19/2015 1:57 AM TOE FORMER STITCHDOWNS) P athologist Signature Glucose 156 (H) 70 - 99 POINT OF CARE mg/dL TEST, GLUCOSE Specimen Anatomical Collection Method Collection Time Receive d Time (Source) Location / / Volume Laterality 12/19/2015 1:57 AM 6 2:06 TOE FORMER STITCHDOWNS AM TOE FORMER STITCHDOWNS Enirke DEAN - DAVID POCT Performing Organization Address City/[facility] Phon e Number FV POINT OF CARE TEST, GLUCOSE POINT OF CARE TEST, GLUCOSE (ABNORMAL) Glucose by meter (12/18/2015 9:19 PM TOE FORMER STITCHDOWNS) P athologist Signature Glucose 163 (H) 70 - 99 POINT OF CARE mg/dL TEST, GLUCOSE Specimen Anatomical Collection Method Collection Time Receive d Time (Source) Location / / Volume Laterality 12/18/2015 9:19 PM 6 9:26 TOE FORMER STITCHDOWNS PM TOE FORMER STITCHDOWNS Enrike DEAN - DAVID POCT Performing Organization Address [facility] Phon e Number FV POINT OF CARE TEST, GLUCOSE POINT OF CARE TEST, GLUCOSE (ABNORMAL) Glucose by meter (12/18/2015 5:28 PM TOE FORMER STITCHDOWNS) P athologist Signature Glucose 155 (H) 70 - 99 POINT OF CARE mg/dL TEST, GLUCOSE Specimen Anatomical Collection Method Collection Time Receive d Time (Source) Location / / Volume Laterality 12/18/2015 5:28 PM 6 5:30 TOE FORMER STITCHDOWNS PM TOE FORMER STITCHDOWNS Enrike HERNANDEZ POCT Performing Organization Address [facility] Code Phon e Number FV POINT OF CARE TEST, GLUCOSE POINT OF CARE TEST, GLUCOSE (ABNORMAL) Glucose by meter (12/18/2015 12:43 PM TOE FORMER STITCHDOWNS) P athologist Signature Glucose 102 (H) 70 - 99 POINT OF CARE mg/dL TEST, GLUCOSE Specimen Anatomical Collection Method Collection Time Receive d Time (Source) Location / / Volume Laterality 12/18/2015 12:43 12/18/2015 PM TOE FORMER STITCHDOWNS 12:50 PM TOE FORMER STITCHDOWNS Enrike HERNANDEZ POCT Performing Organization Address City/[facility] Phon e Number FV POINT OF CARE TEST, GLUCOSE POINT OF CARE TEST, GLUCOSE Blood culture (12/18/2015 10:00 AM TOE FORMER STITCHDOWNS) Patholo gist Method Time Signature Specimen Blood [facility] Special Aerobic and [place] Requests anaerobic [facility] received Culture Micro No growth INFECTIOUS DISEASE DIAGNOSTIC LABORATORY Micro Report FINAL INFECTIOUS Status 12/24/2015 DISEASE DIAGNOSTIC LABORATORY Specimen Anatomical Collection Method Collection Time Receive d Time (Source) Location / / Volume Laterality Blood specimen BLOOD SPECIMEN / 12/18/2015 10:00 12/17 (specimen) Unknown AM TOE FORMER STITCHDOWNS 10:22 AM TOE FORMER STITCHDOWNS Danis Anders MD LAB - MICRO GENERAL ORDERABL ES Performing Organization Address City/[facility]/ZIP Code Phon e Number INFECTIOUS DISEASES [address] [place] [address] DIAGNOSTIC LABORATORY, [address] [place] [address], [facility] INFECTIOUS DISEASE [address] [place] [address] DIAGNOSTIC LABORATORY (ABNORMAL) INR (12/18/2015 8:00 AM TOE FORMER STITCHDOWNS) P athologist Signature INR 2.76 (H) 0.86 - 1.14 [facility] Specimen Anatomical Collection Method Collection Time Receive d Time (Source) Location / / Volume Laterality Blood specimen 12/18/2015 8:00 AM 016 8:13 (specimen) TOE FORMER STITCHDOWNS AM TOE FORMER STITCHDOWNS Vi Rocha MD LAB - BLOOD ORDERABLES Performing Organization Address City/[facility]/ZIP Code Phon e Number [facility] [address] [place] [address] [phone] [facility] [address] [place] [address], [facility] [phone] (ABNORMAL) CBC with platelets (12/18/2015 8:00 AM TOE FORMER STITCHDOWNS) Analysis Performed At Patho logist Time Signature WBC 8.9 4.0 - 11.0 [place] 10e9/L [facility] RBC Count 3.56 (L) 4.4 - 5.9 [place] 10e12/L [facility] Hemoglobin 9.1 (L) 13.3 - [place] 17.7 g/dL [facility] Hematocrit 28.3 (L) 40.0 - [place] 53.0 % [facility] MCV 80 78 - 100 [place] fl [facility] MCH 25.6 (L) 26.5 - [place] 33.0 pg [facility] MCHC 32.2 31.5 - [place] 36.5 g/dL [facility] RDW 17.7 (H) 10.0 - [place] 15.0 % [facility] Platelet Count 118 (L) 150 - 450 [place] 10e9/L [facility] Specimen Anatomical Collection Method Collection Time Receive d Time (Source) Location / / Volume Laterality Blood specimen 12/18/2015 8:00 AM 016 8:13 (specimen) TOE FORMER STITCHDOWNS AM TOE FORMER STITCHDOWNS Danis Kim MD LAB - BLOOD ORDERABLES Performing Organization Address City/State/ZIP Code Phon e Number M [facility] [address] [phone] [facility] [address] [address], [place] [phone] (ABNORMAL) Basic metabolic panel (12/18/2015 8:00 AM TOE FORMER STITCHDOWNS) [facility] Method Time Signature Sodium 128 (L) 133 - 144 [place] mmol/L [facility] Potassium 4.0 3.4 - 5.3 [place] mmol/L [facility] Chloride 92 (L) 94 - 109 [place] mmol/L [facility] Carbon Dioxide 24 20 - 32 [place] mmol/L [facility] Anion Gap 12 3 - 14 [place] mmol/L [facility] Glucose 123 (H) 70 - 99 [place] mg/dL [facility] Urea Nitrogen 63 (H) 7 - 30 [place] mg/dL [facility] Creatinine 11.70 (H) 0.66 - [place] 1.25 mg/dL [facility] GFR Estimate 5 (L) >60 [place] mL/min/1.[address] Comment: Non GFR Calc GFR Estimate If Black 6 (L) >60 mL/min/1.7m2 F [facility] Comment: GFR Calc Calcium 8.5 8.5 - 10.1 mg/dL [facility] Specimen Anatomical Collection Method Collection Time Receive d Time (Source) Location / / Volume Laterality Blood specimen 12/18/2015 8:00 AM 016 8:13 (specimen) TOE FORMER STITCHDOWNS AM TOE FORMER STITCHDOWNS Danis Kim MD LAB - BLOOD ORDERABLES Performing Organization Address City/State/ZIP Code Phon e Number [facility] [address] [place] [address] [phone] [facility] [address] [place] [address], [place] [phone] Hemoglobin A1c (12/18/2015 8:00 AM TOE FORMER STITCHDOWNS) [facility] gist Method Time Signature Hemoglobin A1C Below Assay Range 4.3 - 6.0 JEFFRY Lee Canceled, Test credited % DAWIT MATTHEWS REPORTED TO RN ON DIALYSIS AT [address] [place] [address] Specimen Anatomical Collection Method Collection Time Receive d Time (Source) Location / / Volume Laterality Blood specimen 12/18/2015 8:00 AM 016 8:13 (specimen) TOE FORMER STITCHDOWNS AM TOE FORMER STITCHDOWNS Danis Kim MD LAB - BLOOD ORDERABLES Performing Organization Address City/State/ZIP Code Phon e Number [facility] [address] [place] [address] [phone] [facility] [address] [place] [address], [place] [phone] Vancomycin level (12/18/2015 8:00 AM TOE FORMER STITCHDOWNS) P athologist Signature Vancomycin 24.6 mg/L [facility] Comment: Traditional Dosing therapeutic Range: ?Trough 8-20 mg/L ?Peak 20-50 mg/L Specimen Anatomical Collection Method Collection Time Receive d Time (Source) Location / / Volume Laterality Blood specimen 12/18/2015 8:00 AM 016 8:13 (specimen) TOE FORMER STITCHDOWNS AM TOE FORMER STITCHDOWNS Compa Desai [facility] LAB - BLOOD ORDERABLES Performing Organization Address City/State/ZIP Code Phon e Number M [facility] [address] [phone] [facility] [address] [address], [facility] [phone] (ABNORMAL) Glucose by meter (12/18/2015 6:49 AM TOE FORMER STITCHDOWNS) P athologist Signature Glucose 104 (H) 70 - 99 POINT OF CARE mg/dL TEST, GLUCOSE Specimen Anatomical Collection Method Collection Time Receive d Time (Source) Location / / Volume Laterality 12/18/2015 6:49 AM 6 6:55 TOE FORMER STITCHDOWNS AM TOE FORMER STITCHDOWNS Enrike HERNANDEZ POCT Performing Organization Address City/State/ZIP Code Phon e Number FV POINT OF CARE TEST, GLUCOSE POINT OF CARE TEST, GLUCOSE (ABNORMAL) Glucose by meter (12/18/2015 2:19 AM TOE FORMER STITCHDOWNS) P athologist Signature Glucose 149 (H) 70 - 99 POINT OF CARE mg/dL TEST, GLUCOSE Specimen Anatomical Collection Method Collection Time Receive d Time (Source) Location / / Volume Laterality 12/18/2015 2:19 AM 6 2:25 TOE FORMER STITCHDOWNS AM TOE FORMER STITCHDOWNS Enrike HERNANDEZ POCT Performing Organization Address City/State/ZIP Code Phon e Number FV POINT OF CARE TEST, GLUCOSE POINT OF CARE TEST, GLUCOSE (ABNORMAL) Glucose by meter (12/17/2015 9:35 PM TOE FORMER STITCHDOWNS) P athologist Signature Glucose 122 (H) 70 - 99 POINT OF CARE mg/dL TEST, GLUCOSE Specimen Anatomical Collection Method Collection Time Receive d Time (Source) Location / / Volume Laterality 12/17/2015 9:35 PM 6 9:40 TOE FORMER STITCHDOWNS PM TOE FORMER STITCHDOWNS Enrike HERNANDEZ POCT Performing Organization Address City/State/ZIP Code Phon e Number FV POINT OF CARE TEST, GLUCOSE POINT OF CARE TEST, GLUCOSE Blood culture ONE site (12/17/2015 7:45 PM TOE FORMER STITCHDOWNS) [facility] Method Time Signature Specimen Blood [facility] [place] Special Aerobic and [facility] Requests anaerobic [facility] received Culture Micro No growth [facility] Micro Report [facility] 12/23/2015 [facility] Specimen Anatomical Collection Method Collection Time Receive d Time (Source) Location / / Volume Laterality Blood specimen CATHETER / Unknown 12/17/2015 7:45 PM 0 12/17/2015 (specimen) TOE FORMER [facility] 10:02 PM TOE FORMER STITCHDOWNS Georgia Perez MD LAB - MICRO GENERAL ORDER NADIA Performing Organization Address City/State/ZIP Code Phon e Number [facility] [address] [place] [address] [facility] [address] [place] [address], [place] [phone] (ABNORMAL) Glucose by meter (12/17/2015 4:03 PM TOE FORMER STITCHDOWNS) athologist Signature Glucose 188 (H) 70 - 99 POINT OF CARE mg/dL TEST, GLUCOSE Specimen Anatomical Collection Method Collection Time Receive d Time (Source) Location / / Volume Laterality 12/17/2015 4:03 PM 6 4:05 TOE FORMER STITCHDOW[facility] PM TOE FORMER STITCHDOWNS Enrike Navarro MD LAB - BEAKER POCT Performing Organization Address City/State/ZIP Code Phon e Number FV POINT OF CARE TEST, GLUCOSE POINT OF CARE TEST, GLUCOSE Blood culture (12/17/2015 3:46 PM TOE FORMER STITCHDOWNS) [facility] gist Method Time Signature Specimen Blood [facility] Description [facility] Culture Micro Duplicate request [place] Charge credited [facility] Micro Report FINAL [place] Status 12/17/2015 [facility] Specimen Anatomical Collection Method Collection Time Receive d Time (Source) Location / / Volume Laterality Blood specimen 12/17/2015 3:46 PM 016 3:51 (specimen) TOE FORMER STITCHDOWNS PM TOE FORMER STITCHDOWNS Danis Kim MD LAB - MICRO GENERAL ORDERAB LES Performing Organization Address City/State/ZIP Code Phon e Number [facility] [address] [place] [address] [phone] [facility] [address] [place] [address], [place] [phone] Echocardiogram (12/17/2015 3:39 PM TOE FORMER STITCHDOWNS) Anatomical Region Laterality Modality Echocardiography Specimen (Source) Anatomical Collection Method Collection Time Re ceived Time Location / / Volume Laterality 12/17/2015 3:03 PM TOE FORMER STITCHDOWNS Narrative 12/17/2015 4:30 PM TOE FORMER STITCHDOWNS Interpretation Summary [facility] Echocardiography Laboratory [address] [place] [address] Name: JULIO CESAR SANDHU : 1965 Study Date: 12/17/2015 03:03 PM Age: 50 yrs Gender: Male Patient Location: [facility] Reason For Study: Fever Ordering Physician: DANIS KIM Referring Physician: CORNELL BUTT Performed By: Alcon Martinez RDCS BSA: 1.9 m2 Height: 64 in Weight: 197 lb HR: 73 BP: 181/90 mmHg Procedure Complete Portable Echo Adult. Interpretation Summary Left ventricular systolic function is no rmal. The visual ejection fraction is estimated at 60-65%. There is mild raven ntric left ventricular hypertrophy. The left atrium is mildly dilated. There is trace to mild mitral regurgitat ion. The right ventricular systolic function is normal. The right ventricle is normal size. There is no evidence of a mass or vegeta tion. This does not rule out endocarditis. Left Ventricle The left ventricle is normal in size. Th ere is mild concentric left ventricular hypertrophy. Left ventricula r systolic function is normal. E by E prime ratio is greater than 15, that lik leelee suggests increased left ventricular filling pressures. The visua l ejection fraction is estimated at 60-65%. No regional wall motion abnormal ities noted. Right Ventricle The right ventricle is normal size. The right ventricular systolic function is normal. Atria The left atrium is mildly dilated. Right atrial size is normal. There is no atrial shunt seen. Mitral Valve There is trace to mild mitral regurgitat ion. Tricuspid Valve Normal IVC (1.5-2.5cm) with >50% respira tory collapse; right atrial pressure is estimated at 5-10mmHg. There is trace tricuspid regurgitation. Right ventricular systolic pressure could not be approximated due to inadequate tricuspid regurgitation. Aortic Valve There is mild trileaflet aortic sclerosi s. No aortic regurgitation is present. No hemodynamically significant valvular aortic stenosis. Pulmonic Valve The pulmonic valve is not well visualize d. There is trace pulmonic valvular regurgitation. There is no pulmonic valv ular stenosis. Vessels Normal size aorta. The IVC is normal in size and reactivity with respiration, suggesting normal central venous pressur e. Pericardium The pericardium appears normal. Rhythm The rhythm was normal sinus. MMode/2D Measurements & Calculations IVSd: 1.3 cm LVIDd: 4.8 cm LVIDs: 3.4 cm LVPWd: 1.2 cm FS: 29.5 % EDV(Teich): 107.6 ml ESV(Teich): 47.0 ml LV mass(C)d: 222.9 grams Ao root diam: 3.1 cm LA dimension: 4.9 cm asc Aorta Diam: 3.2 cm LA/Ao: 1.6 LA Volume (BP): 75.7 ml LA Volume Index (BP): 39.0 ml/m2 Doppler Measurements & Calculations MV E max kelton: 89.2 cm/sec MV A max kelton: 95.6 cm/sec MV E/A: 0.93 MV dec time: 0.24 sec PA acc time: 0.15 sec PI end-d kelton: 123.1 cm/sec Lateral E/e': 14.9 Medial E/e': 15.5 Report approved by: Jocelynn Real MDon 0 12/17/2015 04:30 PM Procedure Note Jocelynn Real MD - 12/17/2015Formatti ng of this note might be different from the original. Interpretation Summary [facility] Echocardiography Laboratory [address] [place] [id number] Name: JULIO CESAR SANDHU : 1965 Study Date: 12/17/2015 03:03 PM Age: 50 yrs Gender: Male Patient Location: [facility] Reason For Study: Fever Ordering Physician: DANIS KIM Referring Physician: CORNELL BUTT Performed By: Alcon Martinez RDCS BSA: 1.9 m2 Height: 64 in Weight: 197 lb HR: 73 BP: 181/90 mmHg Procedure Complete Portable Echo Adult. Interpretation Summary Left ventricular systolic function is no rmal. The visual ejection fraction is estimated at 60-65%. There is mild raven ntric left ventricular hypertrophy. The left atrium is mildly dilated. There is trace to mild mitral regurgitat ion. The right ventricular systolic function is normal. The right ventricle is normal size. There is no evidence of a mass or vegeta tion. This does not rule out endocarditis. Left Ventricle The left ventricle is normal in size. Th ere is mild concentric left ventricular hypertrophy. Left ventricula r systolic function is normal. E by E prime ratio is greater than 15, that lik leelee suggests increased left ventricular filling pressures. The visua l ejection fraction is estimated at 60-65%. No regional wall motion abnormal ities noted. Right Ventricle The right ventricle is normal size. The right ventricular systolic function is normal. Atria The left atrium is mildly dilated. Right atrial size is normal. There is no atrial shunt seen. Mitral Valve There is trace to mild mitral regurgitat ion. Tricuspid Valve Normal IVC (1.5-2.5cm) with >50% respira tory collapse; right atrial pressure is estimated at 5-10mmHg. There is trace tricuspid regurgitation. Right ventricular systolic pressure could not be approximated due to inadequate tricuspid regurgitation. Aortic Valve There is mild trileaflet aortic sclerosi s. No aortic regurgitation is present. No hemodynamically significant valvular aortic stenosis. Pulmonic Valve The pulmonic valve is not well visualize d. There is trace pulmonic valvular regurgitation. There is no pulmonic valv ular stenosis. Vessels Normal size aorta. The IVC is normal in size and reactivity with respiration, suggesting normal central venous pressur e. Pericardium The pericardium appears normal. Rhythm The rhythm was normal sinus. MMode/2D Measurements & Calculations IVSd: 1.3 cm LVIDd: 4.8 cm LVIDs: 3.4 cm LVPWd: 1.2 cm FS: 29.5 % EDV(Teich): 107.6 ml ESV(Teich): 47.0 ml LV mass(C)d: 222.9 grams Ao root diam: 3.1 cm LA dimension: 4.9 cm asc Aorta Diam: 3.2 cm LA/Ao: 1.6 LA Volume (BP): 75.7 ml LA Volume Index (BP): 39.0 ml/m2 Doppler Measurements & Calculations MV E max kelton: 89.2 cm/sec MV A max kelton: 95.6 cm/sec MV E/A: 0.93 MV dec time: 0.24 sec PA acc time: 0.15 sec PI end-d kelton: 123.1 cm/sec Lateral E/e': 14.9 Medial E/e': 15.5 Report approved by: Jocelynn Real MDon 0 12/17/2015 04:30 PM Danis Kim MD CV ECHO ORDERABLES Lactic Acid (12/17/2015 3:02 PM TOE FORMER STITCHDOWNS) P athologist Signature Lactic Acid 1.2 0.4 - 2.0 [place] mmol/L [facility] Specimen Anatomical Collection Method Collection Time Receive d Time (Source) Location / / Volume Laterality Blood specimen 12/17/2015 3:02 PM 016 3:10 (specimen) TOE FORMER STITCHDOWNS PM TOE FORMER STITCHDOWNS Danis Kim MD LAB - BLOOD ORDERABLES Performing Organization Address City/State/ZIP Code Phon e Number M [facility] [address] [address] [place] [address] [address] [address], [place] [phone] Blood culture (12/17/2015 3:02 PM TOE FORMER STITCHDOWNS) [facility] gist Method Time Signature Specimen Blood Right [facility] Description Hand [facility] Special Aerobic and [facility] Requests anaerobic [facility] received Culture Micro No growth [facility] Micro Report [facility] Status 12/23/2015 [facility] Specimen Anatomical Collection Method Collection Time Receive d Time (Source) Location / / Volume Laterality Blood specimen 12/17/2015 3:02 PM 016 5:49 (specimen) TOE FORMER STITCHDOWNS PM TOE FORMER STITCHDOWNS Danis Kim MD LAB - MICRO GENERAL ORDERAB LES Performing Organization Address City/State/ZIP Code Phon e Number [facility] [address] [place], [place] [id number] [place] [address] [address] [address], [place] [phone] Blood culture (12/17/2015 2:48 PM TOE FORMER STITCHDOWNS) [facility] gist Method Time Signature Specimen Blood Left [place] Description Arm [facility] Special Aerobic and [place] Requests anaerobic [facility] received Culture Micro No growth [facility] Micro Report [facility] Status 12/23/2015 [facility] Specimen Anatomical Collection Method Collection Time Receive d Time (Source) Location / / Volume Laterality Blood specimen 12/17/2015 2:48 PM 016 3:14 (specimen) TOE FORMER STITCHDOWNS PM TOE FORMER STITCHDOWNS Danis Kim MD LAB - MICRO GENERAL ORDERAB LES Performing Organization Address City/[facility]/ZIP Code Phon e Number [facility] [address] [place] [address], [place] [phone] (ABNORMAL) INR (12/17/2015 8:12 AM TOE FORMER STITCHDOWNS) P athologist Signature INR 3.56 (H) 0.86 - 1.14 [facility] Specimen Anatomical Collection Method Collection Time Receive d Time (Source) Location / / Volume Laterality Blood specimen 12/17/2015 8:12 AM 016 8:23 (specimen) TOE FORMER STITCHDOWNS AM TOE FORMER STITCHDOWNS Vi Rocha MD LAB - BLOOD ORDERABLES Performing Organization Address City/State/ZIP Code Phon e Number [facility] [address] [phone] [facility] [address] [address], [place] [phone] (ABNORMAL) CBC with platelets differential (12/17/2015 8:12 AM TOE FORMER STITCHDOWNS) [facility] Method Time Signature WBC 9.3 4.0 - [place] 11.0 [facility] 10e9/[facility] RBC Count 3.72 (L) 4.4 - 5.9 [place] 10e12/L [facility] Hemoglobin 9.4 (L) 13.3 - [place] 17.7 g/dL [facility] Hematocrit 30.2 (L) 40.0 - [place] 53.0 % [facility] MCV 81 78 - 100 [place] fl [facility] MCH 25.3 (L) 26.5 - [place] 33.0 pg [facility] MCHC 31.1 (L) 31.5 - [place] 36.5 g/dL [facility] RDW 17.8 (H) 10.0 - [place] 15.0 % [facility] Platelet Count 113 (L) 150 - 450 [place] [address]e9/[facility] Diff Method Automated [facility] % Neutrophils 86.6 % [facility] % Lymphocytes 3.4 % [facility] % Monocytes 8.8 % [facility] % Eosinophils 0.8 % [facility] % Basophils 0.1 % [facility] % Immature 0.3 % [place] Granulocytes [facility] Nucleated RBCs 0 0 /100 [facility] Absolute 8.1 1.6 - 8.3 [place] Neutrophil 10e9/L [facility] Absolute 0.3 (L) 0.8 - 5.3 [place] Lymphocytes 10e9/L [facility] Absolute 0.8 0.0 - 1.3 [place] Monocytes 10e9/L [facility] Absolute 0.1 0.0 - 0.7 [place] Eosinophils 10e9/L [facility] Absolute 0.0 0.0 - 0.2 [place] Basophils 10e9/L [facility] Abs Immature 0.0 0 - 0.4 [place] Granulocytes 10e9/[facility] Absolute 0.0 [place] Nucleated RBC [facility] Specimen Anatomical Collection Method Collection Time Receive d Time (Source) Location / / Volume Laterality Blood specimen 12/17/2015 8:12 AM 016 8:23 (specimen) TOE FORMER STITCHDOWNS AM TOE FORMER STITCHDOWNS Enrike Navarro MD LAB - BLOOD ORDERABLES Performing Organization Address City/State/ZIP Code Phon e Number [facility] [address] [phone] [facility] [address] [address], [place] [phone] (ABNORMAL) Basic metabolic panel (12/17/2015 8:12 AM TOE FORMER STITCHDOWNS) Analysis Performed At Patho logist Time Signature Sodium 129 (L) 133 - 144 [place] mmol/L [facility] Potassium 4.0 3.4 - 5.3 [place] mmol/L [facility] Chloride 92 (L) 94 - 109 [place] mmol/L [facility] Carbon Dioxide 27 20 - 32 [place] mmol/L [facility] Anion Gap 10 3 - 14 [place] mmol/L [facility] Glucose 179 (H) 70 - 99 [place] mg/dL [facility] Urea Nitrogen 47 (H) 7 - 30 [place] mg/dL [facility] Creatinine 9.43 (H) 0.66 - [place] 1.25 mg/dL [facility] GFR Estimate 6 (L) >60 [place] mL/min/1.[address] Comment: Non GFR Calc GFR Estimate If Black 7 (L) >60 mL/min/1.7m2 F [facility] Comment: GFR Calc Calcium 8.0 (L) 8.5 - 10.1 mg/dL [facility] Specimen Anatomical Collection Method Collection Time Receive d Time (Source) Location / / Volume Laterality Blood specimen 12/17/2015 8:12 AM 016 8:23 (specimen) TOE FORMER STITCHDOWNS AM TOE FORMER STITCHDOWNS Enrike Navarro MD LAB - BLOOD ORDERABLES Performing Organization Address City/State/ZIP Code Phon e Number M [facility] [address] [phone] [facility] [address] [address], [place] [phone] Vancomycin level (12/16/2015 8:15 PM TOE FORMER STITCHDOWNS) P athologist Signature Vancomycin 18.5 mg/L [facility] Comment: Traditional Dosing therapeutic Range: ?Trough 8-20 mg/L ?Peak 20-50 mg/L Specimen Anatomical Collection Method Collection Time Receive d Time (Source) Location / / Volume Laterality Blood specimen 12/16/2015 8:15 PM 016 8:31 (specimen) TOE FORMER STITCHDOWNS PM TOE FORMER STITCHDOWNS Ariana BautistaD LAB - BLOOD ORDERABLES Performing Organization Address City/State/ZIP Code Phon e Number [facility] [address] [address] [phone] [facility] [address] [address], [place] [phone] Blood culture ONE site (12/16/2015 5:14 PM TOE FORMER STITCHDOWNS) Patholo gist Method Time Signature Specimen Blood [facility] Right Arm [facility] Culture Micro No growth INFECTIOUS DISEASE DIAGNOSTIC LABORATORY Micro Report FINAL INFECTIOUS Status 12/22/2015 DISEASE DIAGNOSTIC LABORATORY Specimen Anatomical Collection Method Collection Time Receive d Time (Source) Location / / Volume Laterality Blood specimen STRUCTURE OF RIGHT 12/16/2015 5:14 PM 0 12/16/2015 5:22 (specimen) UPPER LIMB / TOE FORMER STITCHDOWNS PM TOE FORMER STITCHDOWNS Unknown Georgia Perez MD LAB - MICRO GENERAL ORDER NADIA Performing Organization Address City/State/ZIP Code Phon e Number INFECTIOUS DISEASES [address] [place] [address] DIAGNOSTIC LABORATORY, [address] [address], [facility] INFECT[facility]ASE [address] [place] [address], [facility] Influenza A/B antigen (12/16/2015 4:48 PM TOE FORMER STITCHDOWNS) Patholo gist Method Time Signature Influenza A/B Nares [place] Agn Specimen [facility] [place] Influenza A Negative NEG [place] Test results must be correlated with clinical data. If ne cessary, results [facility] should be confirmed by a molecular assay or viral culture. [place] Influenza B Negative NEG [place] Test results must be correlated with clinical data. If ne cessary, results [facility] should be confirmed by a molecular assay or viral culture. [place] Specimen (Source) Anatomical Collection Method Collection Time Re ceived Time Location / / Volume Laterality Specimen from NASAL STRUCTURE / 12/16/2015 4:48 2015 nasopharyngeal Unknown PM TOE FORMER STITCHDOWNS 4:58 PM TOE FORMER STITCHDOWNS structure (specimen) Georgia Perez MD LAB - MICRO GENERAL ORDER NADIA Performing Organization Address City/State/ZIP Code Phon e Number [facility] [address] [place], [place] [address] XR Chest 2 Views (12/16/2015 3:19 PM TOE FORMER STITCHDOWNS) Anatomical Region Laterality Modality Chest Computed Radiography Specimen (Source) Anatomical Location Collection Method / Collectio n Time Received Time / Laterality Volume Impressions 12/16/2015 3:41 PM TOE FORMER STITCHDOWNS IMPRESSION: Negative. SHAHID BRANTLEY MD Narrative 12/16/2015 3:41 PM TOE FORMER STITCHDOWNS XR CHEST 2 VW 12/16/2015 3:41 PM HISTORY: Chest Pain, Shortness of Breath ? Procedure Note Shahid Brantley MD - 12/16/2015Formatt ing of this note might be different from the original. XR CHEST 2 VW 12/16/2015 3:41 PM HISTORY: Chest Pain, Shortness of Breath IMPRESSION: Negative. SHAHID BRANTLEY MD Georgia Perez MD IMG DIAGNOSTIC IMAGING OR DERABLES Procalcitonin (12/16/2015 3:01 PM TOE FORMER STITCHDOWNS) P athologist Signature Procalcitonin 0.81 ng/ml [facility] Comment: 0.50-1.99 ng/ml ??Moderate risk of syste jesus infection. ??Recommendation: Recommend antibiotics. Evaluate culture results a nd clinical features to target antibacterial therapy. Obtain blood cul tures and other relevant cultures if not done. If empiric antibiotics were started, re check PCT in: 2 days to guide antibiotic de-escalation. ??Discontinue or de-esca late antibiotics when PCT concentration is <80% of peak or abs PCT <0.5. If emp iric antibiotics were NOT started, recheck PCT in 6-24 hours to re-evaluat e need for antibiotics. Specimen Anatomical Collection Method Collection Time Receive d Time (Source) Location / / Volume Laterality 12/16/2015 3:01 PM 6 3:10 TOE FORMER STITCHDOWNS PM TOE FORMER STITCHDOWNS Georgia Perez MD LAB - BLOOD ORDERABLES Performing Organization Address City/State/ZIP Code Phon e Number [facility] [address] [place] [address] [facility] [address] [place] [address], [place] [phone] (ABNORMAL) INR (12/16/2015 3:01 PM TOE FORMER STITCHDOWNS) P athologist Signature INR 3.71 (H) 0.86 - 1.14 [facility] Specimen Anatomical Collection Method Collection Time Receive d Time (Source) Location / / Volume Laterality Blood specimen 12/16/2015 3:01 PM 016 3:10 (specimen) TOE FORMER STITCHDOWNS PM TOE FORMER STITCHDOWNS Georgia Perez MD LAB - BLOOD ORDERABLES Performing Organization Address City/State/ZIP Code Phon e Number [facility] [address] [place] [address] [facility] [address] [place] [address], [place] [phone] Lipase (12/16/2015 3:01 PM TOE FORMER STITCHDOWNS) P athologist Signature Lipase 154 73 - 393 [place] U/L [facility] Specimen Anatomical Collection Method Collection Time Receive d Time (Source) Location / / Volume Laterality Blood specimen 12/16/2015 3:01 PM 016 3:10 (specimen) TOE FORMER STITCHDOWNS PM TOE FORMER STITCHDOWNS Georgia Perez MD LAB - BLOOD ORDERABLES Performing Organization Address City/State/ZIP Code Phon e Number [facility] [address] [phone] [facility] [address] [address], [place] [phone] (ABNORMAL) Comprehensive metabolic panel (12/16/2015 3:01 PM TOE FORMER STITCHDOWNS) Analysis Performed At Patho logist Time Signature Sodium 131 (L) 133 - 144 [place] mmol/L [facility] Potassium 3.3 (L) 3.4 - 5.3 [place] mmol/L [facility] Chloride 93 (L) 94 - 109 [place] mmol/L [facility] Carbon Dioxide 29 20 - 32 [place] mmol/L [facility] Anion Gap 9 3 - 14 [place] mmol/L [facility] Glucose 97 70 - 99 [place] mg/dL [facility] Urea Nitrogen 25 7 - 30 [place] mg/dL [facility] Creatinine 6.94 (H) 0.66 - [place] 1.25 mg/dL [facility] GFR Estimate 8 (L) >60 [place] mL/min/1.[address] Comment: Non GFR Calc GFR Estimate If Black 10 (L) >60 mL/min/1.7m2 F [facility] Comment: GFR Calc Calcium 7.8 (L) 8.5 - 10.1 mg/dL [facility] Bilirubin Total 0.6 0.2 - 1.3 mg/dL [facility] Albumin 3.5 3.4 - 5.0 g/dL [facility] Protein Total 7.5 6.8 - 8.8 g/dL [facility] Alkaline Phosphatase 139 40 - 150 U/L [facility] ALT 16 0 - 70 U/L [facility] AST 17 0 - 45 U/L [facility] Specimen Anatomical Collection Method Collection Time Receive d Time (Source) Location / / Volume Laterality Blood specimen 12/16/2015 3:01 PM 016 3:10 (specimen) TOE FORMER STITCHDOWNS PM TOE FORMER STITCHDOWNS Georgia Perez MD LAB - BLOOD ORDERABLES Performing Organization Address City/State/ZIP Code Phon e Number [facility] [address] [phone] [facility] [address], [place] [address], [place] [phone] (ABNORMAL) CBC with platelets differential (12/16/2015 3:01 PM TOE FORMER STITCHDOWNS) [facility] Method Time Signature WBC 8.9 4.0 - [place] 11.0 [facility] 10e9/[facility] RBC Count 3.93 (L) 4.4 - 5.9 [place] 10e12/L [facility] Hemoglobin 10.1 (L) 13.3 - [place] 17.7 g/dL [facility] Hematocrit 31.8 (L) 40.0 - [place] 53.0 % [facility] MCV 81 78 - 100 [place] fl [facility] MCH 25.7 (L) 26.5 - [place] 33.0 pg [facility] MCHC 31.8 31.5 - [place] 36.5 g/dL [facility] RDW 17.6 (H) 10.0 - [place] 15.0 % [facility] Platelet Count 118 (L) 150 - 450 [place] 10e9/[facility] Diff Method Automated [place] Method [facility] [facility] % Neutrophils 87.8 % [facility] % Lymphocytes 3.4 % [facility] % Monocytes 8.4 % [facility] % Eosinophils 0.1 % [facility] % Basophils 0.1 % [facility] % Immature 0.2 % [place] Granulocytes [facility] Nucleated RBCs 0 0 /100 [facility] Absolute 7.8 1.6 - 8.3 [place] Neutrophil 10e9/L [facility] Absolute 0.3 (L) 0.8 - 5.3 [place] Lymphocytes 10e9/L [facility] Absolute 0.7 0.0 - 1.3 [place] Monocytes 10e9/L [facility] Absolute 0.0 0.0 - 0.7 [place] Eosinophils 10e9/L [facility] Absolute 0.0 0.0 - 0.2 [place] Basophils 10e9/L [facility] Abs Immature 0.0 0 - 0.4 [place] Granulocytes 10e9/L [facility] Absolute 0.0 [place] Nucleated RBC [facility] Specimen Anatomical Collection Method Collection Time Receive d Time (Source) Location / / Volume Laterality Blood specimen 12/16/2015 3:01 PM 016 3:10 (specimen) [facility] PM [facility] Geogria Perez MD LAB - BLOOD ORDERABLES Performing Organization Address City/State/ZIP Code Phon e Number [facility] [address] [place] [address] [phone] [facility] [address] [place] [address], [place] [phone] EKG 12-lead, tracing only (12/16/2015 2:48 PM [facility]) [facility] Method Time Signature Interpretation ECG Click View RADIOLOGY Image link RESULTS to view waveform and result Specimen (Source) Anatomical Collection Method Collection Time Re ceived Time Location / / Volume Laterality 12/16/2015 2:48 PM [facility] Georgia Perez MD ECG ORDERABLES Performing Organization Address City/State/ZIP Code Phon e Number RADIOLOGY RESULTS Blood culture (12/16/2015 7:30 AM [facility]) [facility] Method Time Signature Specimen Blood [facility] Culture Micro Canceled, [place] Test credited [facility] request [id number] Micro Report FINAL [place] Status 12/18/2015 [facility] Specimen Anatomical Collection Method Collection Time Receive d Time (Source) Location / / Volume Laterality Blood specimen 12/16/2015 7:30 AM 016 7:54 (specimen) [facility] AM [facility] Danis Kim MD LAB - MICRO GENERAL ORDERAB LES Performing Organization Address City/State/ZIP Code Phon e Number [facility] [address] [place] [address] [phone] [facility] [address] [place] [address], [place] [phone] Blood culture (12/16/2015 7:30 AM [facility]) [facility] Method Time Signature Specimen Blood [facility] Culture Micro Canceled, [place] Test credited [facility] request [id number] Micro Report FINAL [place] Status 12/18/2015 [facility] Specimen Anatomical Collection Method Collection Time Receive d Time (Source) Location / / Volume Laterality Blood specimen 12/16/2015 7:30 AM 016 7:53 (specimen) [facility] AM [facility] Danis Kim MD LAB - MICRO GENERAL ORDERAB LES Performing Organization Address City/State/ZIP Code Phon e Number [facility] [address] [place] [address] [phone] [facility] [address] [place] [address], [place] [phone] documented in this encounter Visit Diagnoses Diagnosis Fever, unspecified fever cause - Primary Fever Fever, unspecified Essential hypertension Unspecified essential hypertension Cellulitis and abscess of leg, except fo ot Fever and chills Fever, unspecified History of staph septicemia Personal history of other infectious and parasitic disease documented in this encounter Administered Medications Inactive Administered Medications - up to 3 most recent administrations Medication Order MAR Action Action Date Dose Rate Site 0.9% sodium chloride BOLUS New Bag 12/16/2015 3:03 PM [facility] 250 mLs 500 mL/hr Intravenous, 250 mL, ONCE, at 500 mL/hr, Administer over 30 Minutes, On 12/16/15 at 1431, For 1 dose 0.9% sodium chloride BOLUS New Bag 12/18/2015 7:00 AM [facility] 1,000 mLs Intravenous, 250-1,000 mL, ONCE IN DIALYSIS/CRRT, On Padmaja 12/18/15 at 0700, For 1 dose, For patient prime during dialysis, Dialysis 0.9% sodium chloride BOLUS New Bag 12/20/2015 8:34 AM [facility] 250 mLs Hemodialysis Machine, 250 mL, ONCE, On 12/20/15 at 0730, For 1 dose, For Dialyzer Prime. (In Dialyzer), Dialysis 0.9% sodium chloride BOLUS New Bag 12/20/2015 8:34 AM [facility] 250 mLs Intravenous, 250-1,000 mL, ONCE IN DIALYSIS/CRRT, On 12/20/15 at 0730, For 1 dose, For patient prime during dialysis, Dialysis acetaminophen (TYLENOL) tablet 650 mg Given 12/19/2015 10:06 AM [facility] 650 mg 650 mg, Oral, EVERY 4 HOURS PRN, mild pain, fever, Starting on Tue12/16/15 at 1834, Alternate ibuprofen (if ordered) with acetaminophen. Maximum acetaminophen dose from all sources = 75 mg/kg/day not to exceed 4 grams/day. Given 12/18/2015 9:01 PM [facility] 650 mg Given 12/16/2015 7:17 PM [facility] 650 mg amLODIPine (NORVASC) tablet 5 mg Given 12/22/2015 8:22 AM CDT 5 mg 5 mg, Oral, USER SPECIFIED (Once per day on Tue), First dose on Tue12/19/15 at 1000, Hold for SBP < 100 Given 12/21/2015 7:31 AM CDT 5 mg Given 12/19/2015 11:05 AM [facility] 5 mg B swwtuha-U-czkax acid (NEPHROCAPS) capsule 1 Given 12/21/19 16 5:46 PM CDT 1 mg mg 1 mg (1 capsule), Oral, DAILY WITH SUPPER, First dose on Tue12/16/15 at 1845 Given 12/20/2015 4:56 PM [facility] 1 mg Given 12/19/2015 9:10 PM [facility] 1 capsule calcium acetate (PHOSLO) capsule 1,334 m g Given 12/22/2015 11:15 AM CDT 1,334 mg 1,334 mg, Oral, 3 TIMES DAILY WITH MEALS, First dose on Tue12/16/15 at 1845 Given 12/22/2015 8:23 AM CDT 1,334 mg Given 12/21/2015 5:46 PM CDT 1,334 mg CeFAZolin (ANCEF) intermittent infusion 2 g Given 12/22/2015 1:34 PM CDT 2 g Routine, 2 g, Intravenous, ONCE, On Tue12/22/15 at 1230, For 1 dose, Indications: Bacteremia cefTRIAXone (ROCEPHIN) 1 g vial to attach to New Bag 6 5:46 PM CDT 1 g NS 100 ml bag or NS 50 ml bag for PEDS STAT, 1 g, Intravenous, EVERY 24 HOURS, First dose on Tue12/16/15 at 1845, Indications: Sepsis New Bag 12/20/2015 8:33 PM [facility] 1 g New Bag 12/18/2015 6:28 PM [facility] 1 g doxercalciferol (HECTOROL) injection 4 m cg Given 12/18/2015 10:24 AM [facility] 4 mcg 4 mcg, Intravenous, SEE ADMIN INSTRUCTIONS, Starting on Padmaja 12/18/15 at 0647, Given during each dialysis (per request), Dialysis epoetin mauricio (EPOGEN,PROCRIT) injection Given 12/18/19 10:24 AM [facility] 4,000 Units 4,000 Units 4,000 Units, Intravenous, SEE ADMIN INSTRUCTIONS, Starting on Padmaja 12/18/15 at 0647, Given during each dialysis (per request), Dialysis, Hemoglobin reviewed? Provider has reviewed/ordered hemoglobin within the required timeline epoetin mauricio (EPOGEN,PROCRIT) injection Given 12/20/19 10:11 AM [facility] 4,000 Units 4,000 Units 4,000 Units, Intravenous, SEE ADMIN INSTRUCTIONS, Starting on 12/20/15 at 0722, Given during each dialysis (per request), Dialysis, Hemoglobin reviewed? Provider has reviewed/ordered hemoglobin within the required timeline heparin (porcine) injection 500 Units Given 12/18/2015 7:45 AM [facility] 500 Units 500 Units, Hemodialysis Machine, ONCE IN DIALYSIS/CRRT, On Padmaja 12/18/15 at 0700, For 1 dose, LOADING DOSE Administer loading dose prior to heparin infusion. PRE DIALYSIS RUN Dialysis, Dialysis heparin (porcine) injection 500 Units Given 12/20/2015 8:35 AM [facility] 500 Units 500 Units, Hemodialysis Machine, ONCE IN DIALYSIS/CRRT, On 12/20/15 at 0730, For 1 dose, LOADING DOSE Administer loading dose prior to heparin infusion. PRE DIALYSIS RUN Dialysis, Dialysis heparin 10,000 New Syringe/Cartridge 12/18/2015 7:00 AM 500 Units/hr 0.5 mL/hr units/10 mL infusion TOE FORMER STITCHDOWNS (DIALYSIS USE) 500 Units/hr (0.5 mL/hr), Hemodialysis Machine, CONTINUOUS, Starting on Padmaja 12/18/15 at 0700, DURING DIALYSIS TREATMENT, Dialysis heparin 10,000 units/10 mL New Bag 12/20/2015 8:35 AM [facility] 500 Units/hr 0.5 mL/hr infusion (DIALYSIS USE) 500 Units/hr (0.5 mL/hr), Hemodialysis Machine, CONTINUOUS, Starting on 12/20/15 at 0730, DURING DIALYSIS TREATMENT, Dialysis heparin 1000 unit/mL DIALYSIS Cath Care Given 12/18/2015 11:30 AM [facility] 3,000 Units 3,000 Units (3 mL), Intravenous, ONCE PRN, To RED lumen for dialysis catheter care POST RUN, Starting on Padmaja 12/18/15 at 0647, For 1 dose, Administer volume specific to catheter lumen/catheter length (dose above is the size of vial or syringe dispensed, not volume to administer). Administer POST DIALYSIS RUN., Dialysis heparin 1000 unit/mL DIALYSIS Cath Care Given 12/18/2015 11:30 AM [facility] 3,000 Units 3,000 Units (3 mL), Intravenous, ONCE PRN, To BLUE lumen for dialysis catheter care POST RUN, Starting on Padmaja 12/18/15 at 0647, For 1 dose, Administer volume specific to catheter lumen/catheter length (dose above is the size of vial or syringe dispensed, not volume to administer). Administer POST DIALYSIS RUN., Dialysis hydrALAZINE (APRESOLINE) injection 10 mg Given 12/21/2015 11:49 AM CDT 10 mg 10 mg, Intravenous, EVERY 4 HOURS PRN, high blood pressure, give for SBP > 180, Starting on Tue12/16/15 at 1834 Given 12/18/2015 9:00 PM [facility] 10 mg Given 12/17/2015 10:47 PM [facility] 10 mg insulin Aspart (NovoLOG) inj (RAPID ACTI NG) Given 12/22/2015 11:13 AM CDT 2 Units 1-7 Units, Subcutaneous, 3 TIMES DAILY BEFORE MEALS, First dose on Tue12/17/15 at 1700, Correction Scale - MEDIUM INSULIN RESISTANCE DOSING Do Not give Correction Insulin if Pre-Meal BG < 140. For Pre-Meal BG 140 - 189 give 1 unit. For Pre-Meal BG 190 - 239 give 2 units. For Pre-Meal BG 240 - 289 give 3 units. For Pre-Meal BG 290 - 339 give 4 units. For Pre-Meal BG 340- 399 give 5 units. For Pre-Meal BG 400-449 give 6 units For Pre-Meal BG = or > 450 give 7 units. To be given with prandial insulin, and based on pre-meal blood glucose. Notify MD if glucose > or = 350 mg/dL after administration of correction dose. If given at mealtime, must be administered 5 min before meal or immediately after. Given 12/20/2015 4:50 PM [facility] 1 Units Given 12/20/2015 12:35 PM [facility] 1 Units lisinopril (PRINIVIL,ZESTRIL) tablet 20 mg Given 12/22/2015 8:22 AM CDT 20 mg 20 mg, Oral, USER SPECIFIED (Once per day on Tue), First dose on Tue12/17/15 at 0900, On non-dialysis days Given 12/21/2015 7:31 AM CDT 20 mg Given 12/19/2015 8:23 AM [facility] 20 mg metoprolol (LOPRESSOR) tablet 100 mg Given 12/22/2015 8:22 AM CDT 100 mg 100 mg, Oral, USER SPECIFIED (2 times per day on Tue), First dose on Tue12/17/15 at 0900, For Adults, Hold if HR < 60 or SBP<100. On non-dialysis days Given 12/21/2015 9:03 PM CDT 100 mg Given 12/21/2015 7:31 AM CDT 100 mg simvastatin (ZOCOR) tablet 40 mg Given 12/21/2015 9:03 PM CDT 40 mg 40 mg, Oral, EVERY EVENING, First dose on Tue12/16/15 at 2000 Given 12/20/2015 8:33 PM [facility] 40 mg Given 12/19/2015 9:10 PM [facility] 40 mg sodium chloride (PF) 0.9% PF flush 3 mL Given 12/22/2015 8:22 AM CDT 3 mLs 3 mL, Intravenous, EVERY 8 HOURS, First dose on Tue12/19/15 at 1545, And Q1H PRN, to lock peripheral IV dormant line. Given 12/21/2015 5:45 PM CDT 3 mLs Given 12/21/2015 7:35 AM CDT 3 mLs vancomycin (VANCOCIN) 1000 mg in New Bag 12/16/2015 10:39 PM [facility] 1 ,000 mg dextrose 5% 200 mL PREMIX Routine, 1,000 mg, Intravenous, ONCE, On Tue12/16/15 at 2300, For 1 dose, IF central catheter, doses below 2 g may be given over 1 hour., Indications: Sepsis vancomycin (VANCOCIN) 1000 mg in dextrose New Bag 2015 5:00 PM [facility] 1,000 mg 5% 200 mL PREMIX Routine, 1,000 mg, Intravenous, ONCE, On Padmaja 12/18/15 at 1400, For 1 dose, For an adult with peripheral line and dose of 2-2.5 g, infuse over 2 hours. IF central catheter, doses below 2 g may be given over 1 hour., Indications: Sepsis vancomycin (VANCOCIN) 1500 mg in 0.9% New Bag 12/20/2015 4:[address] 1,500 mg NaCl 250 mL PREMIX Routine, 1,500 mg, Intravenous, ONCE, On 12/20/15 at 1500, For 1 dose, For an adult with peripheral catheter and dose of 2-2.5 g, infuse over 2 hours. IF central catheter, doses below 2 g may be given over 1 hour., Indications: Sepsis warfarin (COUMADIN) tablet 3 mg Given 12/18/2015 5:23 PM [facility]E [facility] 3 mg 3 mg, Oral, ONCE AT 6PM, On Padmaja 12/18/15 at 1800, For 1 dose warfarin (COUMADIN) tablet 5 mg Given 12/21/2015 5:46 PM CDT 5 mg 5 mg, Oral, ONCE AT 6PM, On 12/21/15 at 1800, For 1 dose documented in this encounter Active and Recently Administered Medications Due to Daylight Saving Time, this section may contain times in both [facility] and CDT. Scheduled Medication Order 12/20/2015 12/21/2015 12/22/2015 0.9% sodium chloride BOLUS (COMPLETED) 0834 (New Bag - Provider: Benjie Wallis, RN, RN) Hemodialysis Machine, 250 mL, ONCE, 12/20/15 at 0730, For 1 dose, For Dialyzer Prime. (In Dialyzer), Dialysis 0.9% sodium chloride BOLUS (COMPLETED) 0834 (New Bag - Provider: Benjie Wallis, RN, RN) Intravenous, 250-1,000 mL, ONCE IN DIALY SIS, 12/20/15 at 0730, For 1 dose, For patient prime during dialysis, Dialysis amLODIPine (NORVASC) tablet 10 mg 10 mg, Oral, USER SPECIFIED (Once per da y on Sun Tue), First dose on Tue12/24/15 at 0800, Hold for SBP < 100 amLODIPine (NORVASC) tablet 5 mg (CANCELED) 0731 (Given - Provider: Katja Velazquez, LINDA) 0822 (Given - Provider: Bárbara Loop) 5 mg, Oral, USER SPECIFIED (Once per day on Tue), First dose on Tue12/19/15 at 1000, Hold for SBP < 100 B xrnxmqk-L-zgwvt acid (NEPHROCAPS) capsule 1 mg (CANC ELED) 1656 (Given - Provider: Caitlyn Sherwood, LINDA) 1746 (Given - Provider: Katja agarwal RN) 1 mg (1 capsule), Oral, DAILY WITH SUPPER, First dose on 12/15 at 1845 calcium acetate (PHOSLO) capsule 1,334 mg (CANCELED) 0 900 (Not Given - Provider: Rachel Flores RN - Reason: Patient not available - Comment: Pt in dialysis)1235 (Given - Provider: Rachel Flores RN)1655 (Given - Provider: Caitlyn Sherwood RN) 0730 (Given - Provider: Katja agarwal RN)0900 (Canceled Entry - Provider: Katja Velazquez RN)1149 (Given - Provider: Katja Velazquez, LINDA)1746 (Given - Provider: Katja Velazquez, LINDA) 0823 (Given - Provider: Bárbara Loop)1115 (Given - Provider: Marisol Pabon, LINDA) 1,334 mg, Oral, 3 TIMES DAILY WITH MEALS, First dose on Tue at 1845 CeFAZolin (ANCEF) intermittent infusion 2 g (COMPLETED) 1334 (Given - Provider: Bárbara Loop) 2 g, Intravenous, ONCE, Tue12/22/15 at 1 230, For 1 dose, Indications: Bacteremia cefTRIAXone (ROCEPHIN) 1 g vial to attac h to NS 100 ml bag or NS 50 ml bag for PEDS (CANCELED) 2032 (New Bag - Provider: Caitlyn Sherwood RN) 174 (New Bag - Provider: Katja Velazquez RN) 1 g, Intravenous, EVERY 24 HOURS, First dose on Tue12/16/15 at 1845, Indications: Sepsis epoetin mauricio (EPOGEN,PROCRIT) injection 4,000 Units (C ANCELED) 1011 (Given - Provider: Benjie Wallis, LINDA, RN) 4,000 Units, Intravenous, SEE ADMIN INST RUCTIONS, Starting 12/20/15 at 0722, Given during each dialysis (per request), Dialysis, Hemoglobin reviewed? Provider has reviewed/ordered hemoglobin within the required timeline heparin (porcine) injection 500 Units (COMPLETED) 0835 (Given - Provider: Benjie Wallis RN, RN) 500 Units, Hemodialysis Machine, ONCE IN DIALYSIS, 12/20/15 at 0730, For 1 dose, LOADING DOSE Administer loading dose prior to heparin infusion. PRE DIALYSIS RUN Dialysis, Dialysis insulin Aspart (NovoLOG) inj (RAPID ACTING) (CANCELED) 0753 (Not Given - Provider: Rachel Flores RN - Reason: Order parameters not met - Comment: BGM [phone] (Given - Provider: Rachel Flores RN)1650 (Given - Provider: Caitlyn Sherwood RN - Comment: glucose 143) 0725 (Not Given - Provider: Katja Velazquez RN - Reason: Order parameters not met)1141 (Not Given - Provider: Katja Velazquez RN - Reason: Order parameters not met) 0806 (Not Given - Provider: Bárbara Trevino - Reason: Order parameters not met)1113 (Given - Provider: Marisol Pabon, LINDA) 1-7 Units, Subcutaneous, 3 TIMES DAILY B EFORE MEALS, First dose on Tue12/17/15 at 1700, Correction Scale - MEDIUM INSULIN RESISTANCE DOSING Do Not give Correction Insulin if Pre-Meal BG < 140. For Pre 1731 (Not Given - Provider: Katja Velazquez RN - Reason: Order parameters not met) -Meal BG 140 - 189 give 1 unit. For Pre- Meal BG 190 - 239 give 2 units. For Pre- Meal BG 240 - 289 give 3 units. For Pre-Meal BG 290 - 339 give 4 units. For Pre- Meal BG 340- 399 give 5 units. For Pre-Sabiha l BG 400-449 give 6 units For Pre-Meal B G = or > 450 give 7 units. To be given with prandial insulin, and based on pre-meal blood glucose. Notify MD if glucose > or = 350 mg/dL after administratio n of correction dose. If given at mealti wy, must be administered 5 min before meal or immediately after. lisinopril (PRINIVIL,ZESTRIL) tablet 20 mg (CANCELED) 730 (Given - Provider: Katja Velazquez RN)0900 (Canceled Entry - Provider: Katja Velazquez RN) 0822 (Given - Provider: Bárbara Loop) 20 mg, Oral, USER SPECIFIED (Once per da y on Sun Tue), First dose on Tue12/17/15 at 0900, On non-dialysis days metoprolol (LOPRESSOR) tablet 100 mg (CANCELED) 730 (Given - Provider: Katja Velazquez RN)899 (Canceled Entry - Provider: Katja Velazquez RN)2102 (Given - Provider: Jennifer Jacob, LINDA) 08 (Given - Provider: Bárbara Loop) 100 mg, Oral, USER SPECIFIED (2 times pe r day on Sun Tue), First dose on Tue12/17/15 at 0900, For Adults, Hold if HR < 60 or SBP<100. On non-dialysis days simvastatin (ZOCOR) tablet 40 mg (CANCELED) 2032 (Give n - Provider: Caitlyn Sherwood RN) 2102 (Given - Provider: Jennifer Jacob, LINDA) 40 mg, Oral, EVERY EVENING, First dose on Tue12/16/15 at 2000 sodium chloride (PF) 0.9% PF flush 3 mL (CANCELED) 120 5 (Not Given - Provider: Rachel Flores RN - Reason: Patient not available)1604 (Given - Provider: Caitlyn Sherwood RN) 0101 (Given - Provider: Tena Santamaria RN)0 735 (Given - Provider: Katja Velazquez, LINDA)1745 (Given - Provider: Katja Velazquez, LINDA)2344 (Not Given - Provider: Jennifer Jacob, LINDA - Reason: Patient sleeping) 0822 (Given - Provider: Bárbara Loop) 3 mL, Intravenous, EVERY 8 HOURS, First dose on Tue12/19/15 at 1545, And Q1H PRN, to lock peripheral IV dormant line. vancomycin (VANCOCIN) 1500 mg in 0.9% NaCl 250 mL RICHARD IX (COMPLETED) 1603 (New Bag - Provider: Caitlyn Sherwood, LINDA) 1,500 mg, Intravenous, ONCE, 12/20/15 at 1500, For 1 dose, For an adult with peripheral catheter and dose of 2-2.5 g, infuse over 2 hours. IF central catheter, doses below 2 g may be given over 1 hour., Indications: Sepsis warfarin (COUMADIN) tablet 5 mg (COMPLETED) 4976 (Given - Provider: Katja Velazquez, LINDA) 5 mg, Oral, ONCE AT 6PM, 12/21/15 at 1800, For 1 dose Continuous Medication Order 12/20/2015 12/21/2015 12/22/2015 heparin 10,000 units/10 mL infusion (DIALYSIS USE) (CA NCELED) 0835 (New Bag - Provider: Benjie Wallis, LINDA, RN) 500 Units/hr (0.5 mL/hr), Hemodialysis M achine, at 0.5 mL/hr, CONTINUOUS, Starting 12/20/15 at 0730, DURING DIALYSIS TREATMENT, Dialysis PRN Medication Order 12/20/2015 12/21/2015 12/22/2015 hydrALAZINE (APRESOLINE) injection 10 mg (CANCELED) 1149 (Given - Provider: Katja Velazquez, LINDA) 10 mg, Intravenous, EVERY 4 HOURS PRN, h igh blood pressure, give for SBP > 180, Starting 12/16/15 at 1834 documented in this encounter Care Teams [employer] Buyer Relationship Specialty Start Date End Date Cornell Butt PCP - General 06/24/11 documented as of this encounter
--- OUTSIDE RECORDS SUMMARY | 2022-09-01 20:16 | XMS_ITS | Encounter Summary ---
:1965 Author Organization [place] Address [facility] [place] [address] Care Team Providers Name Role Phone HuffPreet cool Primary Care Provider Reason for Visit Auth/Cert Specialty Diagnoses / Procedures Referred By Contact Refer red To Contact Diagnoses Fever Fever and chills [address] R[address] Telephone Triage Unit [address] [place] [address] Phone: Referral ID Status Reason Start Date Expiration Date Visits Requ ested Visits Authorized [id number] 12/17/2015 12/16/2016 1 1 Encounter Details Date Type Department Care Team Description 12/19/2015 Anesthesia Event [facility] [address] ANESTHES IOLOGIS [facility] [address] [address] [facility] [phone] [address] [id number] Anesthesia Record Procedure Summary Procedure Name Responsible Anesthesia Start Anesthesia Stop Anesthesiologist Time Time IRRIGATION AND Patricia Yoon 12/19/15 1742 12/19/15 1854 DEBRIDEMENT LEFT UPPER LEG (Left: Leg) Events Date Time Event Comment 12/19/2015 1705 1742 An Start 1744 Present 1746 An Start Data 1747 An Induction 1749 An Intubation 1750 AN START SEVO 1759 AN INCISION 1833 AN END SEVO 1846 MD Present 1846 AN Extubation 1848 an stop data 1854 An Stop Electronically s igned by Mazin Acuna on December 19, 2015 7:07 PM Name Total propofol 10mg/mL 200 mg fentanyl 50mcg/mL 100 mcg lidocaine 2% 100 mg ondansetron 2mg/mL 4 mg succinylcholine 20 mg/mL 100 mg cefTRIAXone vial 1g 1 g sodium chloride 0.9% 800 mL Agents Name O2 Exp Sevoflurane Ins Sevoflurane Blood No blood [...] 11/18/15 1120 by Groin; 09/17/16; 1120 Monserrat Blake, Megan Castanon, coat cutter Vascular Arteriovenous fistula; 08/03/12 1948 by 1120 by Access Right; Thigh Megan Ochoa, RN Incision/Surgical Site 08/08/12; 1527; Right; 08/08/12 1527 by 1 11/18/15 1120 by Groin; 09/17/16; 1120 Macie Amin L isa D, Mamaril, RN RN Incision/Surgical Site 08/09/12; 1401; Right; 08/09/12 1401 by 1 11/18/15 1120 by Groin; 09/17/16; 1120 Aleta Taylor RN Johnson, L isa D RN Incision/Surgical Site 08/09/12; 1403; 08/09/12 1403 by 09/17/16 1120 by Anterior, Right; Thigh; Aleta Taylor, Megan Ritter, 09/17/16; 1120 RN Incision/Surgical Site 06/20/13; 1001; Left; 06/20/13 1001 by 1120 by Groin; 09/17/16; 1120 Macie Amin L isa D, LINDA Wood coat cutter Vascular Arteriovenous graft; 06/20/13 1646 by 06/25 1120 by Access Left Megan Ochoa, RN Venous Sheath 06/28/13; 1550; 6 Fr; 06/28/13 1550 by 09/17/16 1120 by Other (Comment) (right Hans Pérez, Megan Jolley, fistula); Right; F LINDA Fuentes; 09/17/16; 1120 Arterial Sheath 06/28/13; 1600; 6 Fr; 06/28/13 1600 by 09/17/16 1120 by Other (Comment) (right Hans Pérez, Megan Jolley, thigh fistula); Right; F LINDA Fuentes; 09/17/16; 1120 Incision/Surgical Site 06/04/14; 1600; Left, 06/04/14 1600 by 1120 by Upper; Thigh; 09/17/16; Esha Gazron, Megan Mcguire, 1120 RN Incision/Surgical Site 07/02/15; 0940; Left; 07/02/15 0940 by 1120 by Groin; 09/17/16; 1120 Don Ramos L isa D, LINDA Ho paint line supervisor Left, Upper; Yes; 08/11/15 1514 by 09/17/16 1120 by 09/17/16; 1120 Megan Ochoa, RN Incision/Surgical Site 08/13/15; 2000; Left; 08/13/152000 by 1121 by Leg; upper thigh x3 and Vicki Choe John son, Lisa D, one I&D site; 09/17/16; RN RN 1121 Incision/Surgical Site 08/14/15; 1215; Right; 08/14/15 1215 by 1 11/18/15 1121 by Groin; tunneled dialysis Jazmín Elizabeth, RN Megan Hsu, catheter; 09/17/16; 1121 RN Incision/Surgical Site 11/19/15; 1812; Left; 11/19/15 1812 by 1121 by Leg; left upper leg Carolyn Garcia Johnson, Lisa D, fistula incision; RN LINDA 09/17/16; 1121 RETIRED: CVC Double 11/20/15; 0810; 11/20/15 0810 by 09/17/16 11 21 by Lumen Angiodynamics [place] 2 Anusha Jesus, Megan Og, ; 15.5; [id number]; RN Tunneled; Right; Femoral; Dr. Klein; Sutured; Flouroscopy; IVC; Flouroscopy; hemodialysis Wound 12/19/15; 1217; 12/19/15 1217 by 09/17/16 1121 b y Anterior, Inner, Left, Pavan Roy, Megan Martínez, Upper; Open, small, RN LINDA eraser sized opening at old fistula site; No; 09/17/16; 1121 Peripheral IV 12/19/15; 1225; 20 G, 1 12/19/15 1225 by 6 1439 by 1/4 inch; Right; Lower Guys-Linnea Durham n, Marisol K, forearm; Accessory Ryann Gonzalez RN RN cephalic; Chlorhexidine; Tolerated well RETIRED ETT 12/19/15; 1749; Mask 12/19/15 1749 by 12/19/15 1 846 by Ventilation: Easy with Mazin Acuna APRN Mazin Bernardo, oral airway; Ease of CORRECTIONAL MAINTENANCE TECHNICIAN GLASS ETCHER CORRECTIONAL MAINTENANCE TECHNICIAN Intubation: Easy; Airway Size: 8; Cuffed; Oral; Blade Type: Shipley; Blade Size: 2; Place by: dgd; Insertion Attempts: 1; Secured at (cm)to lip: 24 cm; Grade View of Cords: 1 documented in this encounter Social History Tobacco Use Types Packs/Day Years Used Date Smoking Tobacco: Never Smokeless Tobacco: Never Alcohol Use Standard Drinks/Week Comments No 0 (1 standard drink = 0.6 oz pure alcoho l) Sex Assigned at Date Recorded Not on file documented as of this encounter OR Notes Anesthesia Postprocedure Evaluation - Patricia Yoon - 12/19/2015 7:30 PM NURSE AIDE EVALUATOR Patient: Herminio Victor COMBINED IRRIGATION AND DEBRIDEMENT LOWER EXTREMITY (Left Leg) Additional InformationProcedure(s): IRRIGATION AND DEBRIDEMENT LEFT UPPER LEG Diagnosis:UNSPECIFIED Diagnosis Additional Information: No value filed. Anesthesia Type: General, ETT Note: Anesthesia Post Evaluation Patient location during evaluation: PACU Patient participation: Able to fully participate in evaluation Level of consciousness: awake Pain management: adequate Anesthetic complications: no Cardiovascular status: acceptable Respiratory status: acceptable Hydration status: acceptable PONV: none Last vitals: Filed Vitals: 12/19/15 1900 12/19/15 1910 12/19/15 1920 BP: 192/92 191/89 191/88 Pulse: Temp: Resp: 24 16 14 SpO2: 100% 100% 100% Electronically Signed By: PATRICIA YOON December 19, 2015 7:30 PM E AIDE EVALUATOR Anesthesia Preprocedure Evaluation - Patricia Yoon - 12/19/2015 5:04 PM NURSE AIDE EVALUATOR Anesthesia Evaluation . Pt has had prior anesthetic. Type: General and MAC No history of anesthetic complications ROS/MED HX ENT/Pulmonary: (+)sleep apnea, doesn't use CPAP , . . (-) tobacco use [...] of transplant, Endo: (+) type II DM Using insulin - not using insulin pump Diabetic complications: nephropathy neuropathyretinopathy, . Psychiatric: Infectious Disease: Malignancy: Other: Physical Exam Normal systems: cardiovascular and pulmonary Airway Mallampati: II TM distance: >3 FB Neck ROM: full Dental (+) upper dentures and lower dentures Cardiovascular Pulmonary Anesthesia Plan ASA Score: 3 . Plan for General and ETT - Anesthetic plan, risks, benefits and alternatives discussed with: patient or support representative. Routine analgesia and antiemetics . History & Physical Review History and physical reviewed and following examination; no interval change. . E AIDE EVALUATOR documented in this encounter Miscellaneous Notes Anesthesia Care Transfer Note - Mazin Acuna APRN CRNA - 12/19/2015 6:54 PM CST Patient: Herminio Victor COMBINED IRRIGATION AND DEBRIDEMENT LOWER EXTREMITY (Left Leg) Additional Information@[email or web address]@ Diagnosis: UNSPECIFIED Diagnosis Additional Information: No value filed. Anesthesia Type: General, ETT Note: Airway :Face Mask Patient transferred to:PACU Comments: To pacu awake cooperative report to rn given Electronically Signed By: Mazin Acuna APRN CRNA December 19, 2015 7:06 PM E AIDE EVALUATOR documented in this encounter Plan of Treatment Not on filedocumented as of this encounter Visit Diagnoses Not on filedocumented in this encounter Administered Medications Inactive Administered Medications - up to 3 most recent administrations Medication Order MAR Action Action Date Dose Rate Site 0.9% sodium chloride infusion New Bag 12/19/2015 5:26 PM NURSE AIDE EVALUATOR CONTINUOUS PRN, Anesthesia Intra-op, Starting on Tue12/19/15 at 1726, Until Tue12/19/15 at 1907 cefTRIAXone (ROCEPHIN) 1 g vial to attach to NS Given 12/19/2015 6:30 PM NURSE AIDE EVALUATOR 1 g 100 ml bag or NS 50 ml bag for PEDS Routine, PRN, Starting on Tue12/19/15 at 1830, Anesthesia Intra-op fentaNYL (SUBLIMAZE) injection Given 12/19/2015 5:48 PM NURSE AIDE EVALUATOR 100 mcg PRN, moderate to severe pain, Starting on Tue12/19/15 at 1748, Anesthesia Intra-op lidocaine injection 2% (MDV) Given 12/19/2015 5:54 PM NURSE AIDE EVALUATOR 40 mg PRN, Starting on Tue12/19/15 at 1747, Anesthesia Intra-op Given 12/19/2015 5:47 PM NURSE AIDE EVALUATOR 60 mg ondansetron (ZOFRAN) injection Given 12/19/2015 6:02 PM NURSE AIDE EVALUATOR 4 mg PRN, nausea, vomiting, Administer over 2-5 Minutes, Starting on Tue12/19/15 at 1802, Anesthesia Intra-op propofol (DIPRIVAN) injection 10 mg/mL v ial Given 12/19/2015 5:47 PM NURSE AIDE EVALUATOR 200 mg PRN, Starting on Tue12/19/15 at 1747, Anesthesia Intra-op succinylcholine (ANECTINE) injection Given 12/19/2015 5:45 PM NURSE AIDE EVALUATOR 100 mg PRN, Starting on Tue12/19/15 at 1745, Anesthesia Intra-op documented in this encounter Care Teams Air Cargo Ground Crew Supervisor Relationship Specialty Start Date End Date Preet Huff PCP - General 06/24/11 documented as of this encounter
--- OUTSIDE RECORDS SUMMARY | 2022-09-01 20:17 | XMS_ITS | Encounter Summary ---
:1965 Author Organization [place] Address [address] [facility] [place] [address] Care Team Providers Name Role Phone Preet Huff Primary Care Provider Reason for Visit Reason Onset Date Comments Post-Op - Vascular 11/10/2015 Encounter Details Date Type Department Care Team Description 11/10/2015 PRE VISIT SH PHYS STANDARD Jaxon Saravia Post-Op - Vascular [address] [place] [phone] [address] [phone] [address] [place] [id number] (Wo rk) Social History Tobacco Use Types Packs/Day Years Used Date Smoking Tobacco: Never Smokeless Tobacco: Never Alcohol Use Standard Drinks/Week Comments No 0 (1 standard drink = 0.6 oz pure alcoho l) Sex Assigned at Date Recorded Not on file documented as of this encounter Miscellaneous Notes Telephone Encounter - Jaxon Saravia MD - 11/10/2015 1:36 PM MANAGER VOICE I reviewed the recent left thigh graft Duplex on Herminio Victor with Dr Smith. He has a several cm segment of PTFE graft coming off the WIRELESS INTERNET INSTALLER. We replaced the rest with ProCol in two operations.The most recent in Was due to a bleeding PTFE pseudoaneurysm. He developed a hematoma when trying to use ProCol segment. He has a jugular catheter for dialysis. Duplex with a huge mid loop pseudoaneurysm cavity wit thrombosis in medial segment compressing the ProCol And a smaller pseudoaneurysm closer to the lateral PTFE. Otherwise good flow and size. These will need to be repaired with possible interposition ProCol under GA. Radha will arrange via his dialysis unit. Jaxon Saravia MD GER VOICE documented in this encounter Plan of Treatment Not on filedocumented as of this encounter Visit Diagnoses Not on filedocumented in this encounter Care Teams Director Of Retail Merchandising Relationship Specialty Start Date End Date Preet Huff PCP - General 06/24/11 documented as of this encounter
--- OUTSIDE RECORDS SUMMARY | 2022-09-01 20:17 | XMS_ITS | Encounter Summary ---
:1965 Author Organization [place] Address [facility] [place] [address] Care Team Providers Name Role Phone HuffPreet cool Primary Care Provider Reason for Visit Reason Comments RECHECK AVF Lt Leg Encounter Details Date Type Department Care Team Description [facility]/07[facility] Mk Felix MD hemodialysis fistula, [address] [facility] initial encounter (H) [address] (Primary Dx) [place] [address] [phone] [place] [address] Social History Tobacco Use Types Packs/Day Years Used Date Smoking Tobacco: Never Smokeless Tobacco: Never Alcohol Use Standard Drinks/Week Comments No 0 (1 standard drink = 0.6 oz pure alcoho l) Sex Assigned at Date Recorded Not on file documented as of this encounter Last Filed Vital Signs Vital Sign Reading Time Taken Comments Blood Pressure 152/75 11/07/2015 9:31 AM UTILITY ARBORIST rt Pulse 62 11/07/2015 9:31 AM UTILITY ARBORIST Temperature - - Respiratory Rate - - Oxygen Saturation 100% 11/07/2015 9:31 AM UTILITY ARBORIST Inhaled Oxygen Concentration - - Weight - - Height - - Body Mass Index - - documented in this encounter Progress Notes Cinda Smith - 11/08/2015 12:01 PM CST Please see dictation. Cinda Smith MD Vascular Surgeon Pager [phone] ITY ARBORIST Cinda Smith - 11/08/2015 12:01 PM CST [facility] The patient was referred to the [facility] by the emergency room. HISTORY OF PRESENT ILLNESS: Mr. Julio Cesar Victor is a 50-year-old man who is well known to Dr. Saravia. In 08/2015 the patient underwent an explantation of a large portion of his loop PTFE dialysis graft due to infection and to replace this area he had implantation of a ProCol graft. The patient was seen by Dr. Saravia on as an outpatient and at that time his graft had some fluid surrounding it; thought to be a seroma. He underwent dialysis on 10/06/2015 through his ProCol graft and unfortunatelyduring dialysis, developed a moderate-sized hematoma measuring about 4 x 8 cm. This was never formally measured on ultrasound. Pressure was held at that area and the patient was discharged after Dr. Saravia was informed and recommended that he undergo dialysis through a tunneled catheter in his right groin. The patient was seen in dialysis on 11/06/2015 and on evaluation he was noted to possibly have alarger thigh hematoma with concern for infection. He was therefore transferred to the [facility] ER for further management. Upon evaluation, he was found to have a normal white count and he wasafebrile. He was also noted not to have any erythema or warmth over the area of his hematoma. Upon asking his mother as well as Julio Cesar himself if his hematoma had changed in size, they stated that no, it appeared the same size as it was back on 10/06/2015 when it first developed. He did undergo an ultrasound which shows a large pseudoaneurysm arising at the apex of the fistula with most likely a thrombosed portion of the pseudoaneurysm versus a large hematoma adjacent to the venous outflow limb that is compressing the venous outflow limb causing a significant narrowing down to1.1 mm. The AV fistula continues to remain patent. There is also a small pseudoaneurysm at the distal aspect of his arterial limb measuring 1.9 x 2.2 x 1.1 cm. Mr. Victor was instructed [facility]. At this point, Mr. Victor and his mother state that they do not think the hematoma has changed in size at all since it first developed. They denied that he has had any fevers and Mr. Victor reports hehas not had any further pain at the graft site or the hematoma site in his left thigh. IMPRESSION, REPORT, PLAN: Mr. Victor is a 50-year-old gentleman with end-stage renal disease who has a left femoral artery to vein ProCol and PTFE dialysis graft that has caused a large pseudoaneurysmhematoma to form. Dr. Saravia who knows this patient well, has evaluated him for this and was going towait for the hematoma to reabsorb before he intervened to repair the area of pseudoaneurysm. It doesnot appear that the hematoma has changed in size; therefore, I do not think intervention is warranted for Mr. Victor at this time. I have recommended that Mr. Victor follow up with Dr. Saravia for further intervention and he will see him next week in the office. CINDA SMITH MD MT: PD Name: JULIO CESAR VICTOR MRN: [id number] Account: [id number] : 1965 Visit Date: 11/07/2015 Document: [id number] ITY ARBORIST documented in this encounter Plan of Treatment Not on filedocumented as of this encounter Visit Diagnoses Diagnosis Pseudoaneurysm of AV hemodialysis fistul a, initial encounter (H) - Primary documented in this encounter Care Teams Cattle Care Worker Relationship Specialty Start Date End Date Preet Huff PCP - General 06/24/11 documented as of this encounter
--- OUTSIDE RECORDS SUMMARY | 2022-09-01 20:17 | XMS_ITS | Encounter Summary ---
:1965 Author Organization [place] Address [facility] [place] [address] Care Team Providers Name Role Phone Preet Huff Primary Care Provider Encounter Details Date Type Department Care Team Description 11/18/2015 Orders Only [facility] Vascular Tejas Klein MD Renal failure Clinic [facility] RADIOLOGIC [address] [place] [address] [address] [place] [address] (Wo rk) Social History Tobacco Use Types Packs/Day Years Used Date Smoking Tobacco: Never Smokeless Tobacco: Never Alcohol Use Standard Drinks/Week Comments No 0 (1 standard drink = 0.6 oz pure alcoho l) Sex Assigned at Date Recorded Not on file documented as of this encounter Plan of Treatment Not on filedocumented as of this encounter Visit Diagnoses Diagnosis Renal failure Renal failure, unspecified documented in this encounter Care Teams Plastic Mixer Relationship Specialty Start Date End Date Preet Huff PCP - General 06/24/11 documented as of this encounter
--- OUTSIDE RECORDS SUMMARY | 2022-09-01 20:17 | XMS_ITS | Encounter Summary ---
:1965 Author Organization [place] Address [address] [place] [address] Care Team Providers Name Role Phone Refugio Cornell Hans Primary Care Provider Reason for Visit Reason Comments Fever was at dialysis- 1030 fever of 101.finished cycle, 2 sets of cultures drawn- received rocephin and vanco- temp increased to 102. Auth/Cert Specialty Diagnoses / Procedures Referred By Contact Refer red To Contact Diagnoses Fever Fever and chills [address] [phone] Phone: Referral ID Status Reason Start Date Expiration Date Visits Requ ested Visits Authorized [id number] 12/17/2015 12/16/2016 1 1 Encounter Details Date Type Department Care Team Description 12/19/2015 Surgery [facility] Mkie Aceves IRR IGATION AND Ariane Palmer MD DEBRIDEMENT LEFT UPPER Services LEG [address] [place] [id number] Surgery Details Date/Time Status Location OR Service Patient Class Case Case Trauma Class Type Case? 12/19/15 5:30 Posted OR OR M 30 General Inpatient PM Panel 1 Procedure LRB Anes Op Region Wound Class Commen ts IRRIGATION AND Left General Leg II-Clean Contaminated IRRIGATION AND DEBRIDEMENT LEFT DEBRIDEM ENT LEFT UPPER LEG UPPER LEG Surgeon Surgeon Role Service Panel Mike Aceves MD Primary General 1 Vi Rocha MD Assisting 1 documented in this encounter Social History Tobacco Use Types Packs/Day Years Used Date Smoking Tobacco: Never Smokeless Tobacco: Never Alcohol Use Standard Drinks/Week Comments No 0 (1 standard drink = 0.6 oz pure alcoho l) Sex Assigned at Date Recorded Not on file documented as of this encounter Last Filed Vital Signs Vital Sign Reading Time Taken Comments Blood Pressure 179/85 12/19/2015 3:35 PM PREP ROOM SUPERVISOR Pulse 65 12/19/2015 8:00 AM PREP ROOM SUPERVISOR Temperature 36.3 ??C (97.3 ??F) 12/19/2015 3:35 PM PREP ROOM SUPERVISOR Respiratory Rate 19 12/19/2015 8:00 AM PREP ROOM SUPERVISOR Oxygen Saturation 98% 12/19/2015 3:35 PM PREP ROOM SUPERVISOR Inhaled Oxygen Concentration - - Weight 93.1 kg (205 lb 4 oz) 12/19/2015 6:00 AM PREP ROOM SUPERVISOR Height 162.6 cm (5' 4) 12/16/2015 2:26 PM PREP ROOM SUPERVISOR Body Mass Index 35.42 12/16/2015 2:26 PM PREP ROOM SUPERVISOR documented in this encounter Discharge Summaries Janine Uriarte PA-C - 12/22/2015 12:54 PM CDT [facility] Discharge Summary Julio Cesar Sandhu Date of : 1965 Age: [age] year old Date of Admission: 12/16/2015 Date of Discharge: 12/22/2015 Admitting Physician: Enrike Navarro MD Discharge Physician: Janine Uriarte PA-C Discharging Service: Hospitalist Primary Provider: Cornell Butt [phone] DISCHARGE DIAGNOSES/PROBLEM ORIENTED HOSPITAL COURSE: Julio Cesar [...] admission in November. Blood cx's drawn at [facility] (1 from Catheter and 1 from [...] 12/15-12/17. Ancef started 12/15. Will continue ancef Jeri Benjamin Sat at dialysis for 4weeks. ESRD on [...] on , , , (Non-dialysis days only) bisacodyl (DULCOLAX) 5 MG [...] M, W, F, [place] (Non-dialysis days only) b fpomgyb-X-fctpn acid (NEPHROCAPS) 1 MG capsule Take 1 [...] dialysis catheter exit site dressing changes - human resources trainee has also been ordered at discharge - [...] x 20mg tablet = 40mg ) b lboszrp-O-nmdhv acid Take 1 capsule by 0 03/04/2016 [...] on Once Daily on M, W, , [place] (Non-dialysis days only) calcium acetate (PHOSLO) [...] 3:41 PM CDT DISCHARGE SUMMARY FAXED TO [facility] Alem Hale LICSW - 12/22/2015 1:40 PM CDT SW D: Patient resides at home with his mother and aunt. Patient receives 6 hours of VIOLIN MECHANIC services daily thru [facility] and his nurse rail gang supervisor is Zuleyka [phone]. His VIOLIN MECHANIC is his aunt Thelma. Patient will have the need for daily dressing changes 1-2 times a day. His aunt, felt able to provide the dressing changes on her own, however the VIOLIN MECHANIC nursing rail gang supervisor is requesting skilled RN services be involved to educate and assess how patient does once home. Patient lives in [place] which [facility] does not serve. Arrangements made thru [facility] [phone]. [facility] can start of care tomorrow. Orders faxed to both [facility] at [phone] and to [facility] at [phone]. Family family plans to transport home. Nika Magdaleno RN - 12/22/2015 12:41 PM CDT MET WITH PATIENTS AUNT WHO IS HIS VIOLIN MECHANIC-SHE DOES NOT WANT HOME CARE AND FEELS SHE CAN DO THE DRESSINGHER SELF. DID NOT WANT A DEMONSTRATION OF THE DRSG CHANGE. sHE DID REQUEST A FEW SUPPLIES TO GO HOMEWITH. Alejandro Emerson MD - 12/22/2015 12:14 PM CDT I called his dialysis unit - [facility] - [phone]. I gave the charge entry orders for Ancef 2 gram Q Tues, 2 grams Q Thurs and 3 grams Q Sat X 4 weeks. They expect him back tomorrow. Please Fax discharge summary to them at [phone] Alejandro Emerson MD Ezequiel Knight MD - 12/22/2015 9:45 AM CDT [facility] Infectious Disease Progress Note Date of Service [...] 1-5 Units Subcutaneous At Bedtime ??? B wmhjyxh-W-wvvqa acid 1 capsule Oral Daily with supper [...] No growth Canceled, Test credited Duplicate request [id number] Canceled, Test credited Duplicate request [id number] Jaxon Buenrostro MD - 12/22/2015 7:25 AM [...] Vascular Clinic in [address] Buenrostro. Vi Rocha Surgery Resident, PGY4 Pager [phone] Staff: Agree with above. He does have [...] noted Dr. Buenrostro to F/U in am Ginny Singhry Anya, - 12/21/2015 8:16 AM CDT [facility] Hospitalist Progress Note Kokohola Joyner DO Francisco 12/21/2015 Interval History: Patient states he is [...] admission in November. Blood cx's drawn at [facility] (1 from Catheter and 1 from [...] aureus - Appreciate ID input. - C/w Vanco and Edmundoeplondonn for now. ESRD on hemodialysis/Hyponatremia/Hypokalemia: Has had [...] only) 12/15/2015 at Unknown time ??? b ngritpo-Q-wyzce acid (NEPHROCAPS) 1 MG capsule Take 1 [...] 1-5 Units Subcutaneous At Bedtime ??? B kklijws-N-rfdsg acid 1 capsule Oral Daily with supper [...] Imaging data reviewed. Dr. Koko Singh D.O. [facility] P[facility] [phone] Danis Kim MD - 12/20/2015 3:01 PM CST [facility] Hospitalist Progress Note Date of Service (when [...] admission in November. Blood cx's drawn at [facility] (1 from Catheter and 1 from arm). [...] staph aureus - Appreciate ID. - C/w Ronit and Emilia for now. ESRD on hemodialysis Hyponatremia Hypokalemia [...] - Will need to follow cultures from [facility]. - Na improving. - Follow K [...] 1-5 Units Subcutaneous At Bedtime ??? B duffwdz-T-zcyys acid 1 capsule Oral Daily with supper [...] previous visit (from the past 24 hour(s)). ROOM SUPERVISOR Mazin Singh MD - 12/20/2015 3:01 PM [...] by mouth daily Take on , , F, [place] (Non-dialysis days only) bisacodyl (DULCOLAX) 5 MG EC tablet Take 10 mg by mouth See Admin Instructions Take on BID on M, W,F, [place] (Non-dialysis days only) Cholecalciferol (VITAMIN D3 PO) Take 2,000 Units by mouth daily Metoprolol Tartrate (LOPRESSOR PO) Take 100 mg by mouth 2 times daily In the AM and at Noon. Takes on M, W, F, [place] (Non-dialysis days only) b vhoeecd-Y-nxygu acid (NEPHROCAPS) 1 MG capsule Take 1 [...] mg) by mouth Once per day on Sun Tue warfarin-No DOSE today 1 each no [...] Inject 1-5 Units Subcutaneous At Bedtime B yicbvxs-H-noaaw acid (NEPHROCAPS) capsule 1 mg Take 1 [...] for [facility] [employer] Infectious Diseases [phone] ROOM SUPERVISOR Benjie Wallis RN, RN - 12/20/2015 1:53 PM CST Pt dialyzed today for 3.5hrs against a k-3 dialysate bath via RFCVC. 350-400 qb achieved throughout.2000 units heparin given. CVC locked w/1:1000 heparin. Epo given. Seen by renal DrLorena During HD. VSS throughout. See [facility] for further details. Danis Kwok MD - 12/20/2015 9:39 AM CST Assessment and Plan: ESRD: HD for 3.5 h using R CORRECTION, 2L UF, 400 BFR, 3K 353 HCO3. [...] 1-5 Units Subcutaneous At Bedtime ??? B emeioaf-G-iirzc acid 1 capsule Oral Daily with supper [...] MEDICATION INSTRUCTIONS - Current active medications and SALES REPRESENTATIVE SUPERVISOR medications reviewed, see medication list for details. [...] - - - 100 % - 12/19/15 1940 196/88 mmHg 97.2 ??F (36.2 ??C) Temporal - 68 13 100 % - 12/19/15 1930 188/89 mmHg - - - 15 100 % - 12/19/15 1920 191/88 mmHg - - - 14 100 % - 12/19/15 1910 191/89 mmHg - - - 68 16 100 % - 12/19/15 1900 (!) 192/92 mmHg - - - 24 100 % - 12/19/15 1852 (!) [...] 1190 ml Alert, non - verbal R CORRECTION with no redness or tenderness Left groin [...] Labs Lab Test 12/19/15 0811 12/18/15 0800 03/09/16 0812 JON 8.4* 8.5 8.0* Lab Results [...] imaging. Seen on dialysis. Danis Anders MD ROOM SUPERVISOR Mike Aceves MD - 12/20/2015 8:24 AM CST PO#1 Afebrile, VSS Denies pain Dressings dry Doing well Start dressing changes Isis Chong RN - 12/19/2015 11:31 AM CST Updated pt's mother Arianna with pt's permission. Arianna informed of plan to OR today for I&D and likely wound vac over the weekend. Arianna and pt himself state that pt is competent to sign consent for surgery. Arianna concerned with when pt can come home. ROOM SUPERVISOR Danis Kim MD - 12/19/2015 9:26 AM CST [facility] Hospitalist Progress Note Date of Service (when [...] admission in November. Blood cx's drawn at [facility] (1 from Catheter and 1 from [...] - Will need to follow cultures from [facility]. - Na improving. History of upper extremity [...] 1-5 Units Subcutaneous At Bedtime ??? B jcmudqq-W-kcvjw acid 1 capsule Oral Daily with supper [...] previous visit (from the past 24 hour(s)). ROOM SUPERVISOR Raúl Wisdom MD - 12/19/2015 7:52 AM CST [facility] Infectious Disease Progress Note Date of Service [...] 1-5 Units Subcutaneous At Bedtime ??? B oponazc-Y-wvjiu acid 1 capsule Oral Daily with supper [...] 3 days Canceled, Test credited Duplicate request [id number] Canceled, Test credited Duplicate request [id number] No growth No growth ROOM SUPERVISOR Danis Kim MD - 12/18/2015 1:37 PM CST [facility] Hospitalist Progress Note Date of Service (when [...] admission in November. Blood cx's drawn at [facility] HD (1 from Catheter and 1 from arm). [...] - Will need to follow cultures from [facility] HD. - Follow bmp in am [...] Anticipate another day to monitor cultures. Danis Kmi Interval History Afebrile overnight. No leukocytosis. No [...] 1-5 Units Subcutaneous At Bedtime ??? B doipgjr-O-trccz acid 1 capsule Oral Daily with supper [...] previous visit (from the past 24 hour(s)). ROOM SUPERVISOR Danis Anders MD - 12/18/2015 10:04 AM [...] 1-5 Units Subcutaneous At Bedtime ??? B zmzzsse-W-kajxe acid 1 capsule Oral Daily with supper [...] MEDICATION INSTRUCTIONS - Current active medications and SALES REPRESENTATIVE SUPERVISOR medications reviewed, see medication list for details. [...] imaging. Seen on dialysis. Danis Anders MD Ezequiel Stanley MD - 12/18/2015 9:12 AM CST [facility] Infectious Disease Progress Note Date of Service [...] 1-5 Units Subcutaneous At Bedtime ??? B lvdzmrp-J-aesjy acid 1 capsule Oral Daily with supper [...] 2 days Canceled, Test credited Duplicate request [id number] Canceled, Test credited Duplicate request [id number] No growth No growth No growth ROOM SUPERVISOR Roberta Schmitz RN - 12/18/2015 7:15 AM [...] Total blood volume processed:76.4L Patient dialyzes at [place] Q T-Th-Sat. POST ASSESSMENTS: Skin warm and dry, alert, denies discomfort, Lungs clear, Resp rate regular, apical rate regular. No change of edema. See flowsheet in [employer] for further details. Report given to Mary Johnson RN. Ariadne Schmitz RN [facility] Josue Stuart RN - 12/17/2015 8:23 PM CST Dialysis [...] did not appear to be in pain. Danis Garcia MD - 12/17/2015 2:29 PM CST [facility] Hospitalist Progress Note Date of Service (when [...] admission in November. Blood cx's drawn at [facility] (1 from Catheter and 1 from [...] - Will need to follow cultures from [facility] HD. - Na 129<--131. History of [...] cath and arm. Follow cx results form [facility]. Will ask ID for their opinion on his line. Danisrussel Breaux Herb Interval History No overnight events. Vitals stable. [...] apply no dose today (warfarin) ??? B fscgumz-N-lvbvo acid 1 capsule Oral Daily with supper [...] Breath Impression IMPRESSION: Negative. SHAHID BRANTLEY MD ROOM SUPERVISOR documented in this encounter H&P Notes Enrike [...] He gets Tuesday, , Tuesday dialysis at [facility] and today he was apparently having some [...] His aunt is a legal power of divorce attorney and medical decision maker. FAMILY HISTORY: [...] 118. INR 3.71. Chest x-ray reviewed by or shows no acute infiltrates, effusions or pneumothorax. [...] MD MT: PD Name: JULIO CESAR SANDHU Account: [id number] : 1965 Admitted: [id number] Document: [id number] documented in this encounter Consult Notes Alejandro Emreson MD - 12/22/2015 8:32 AM CDTAssociated Order(s): [...] in place. Discussed with Dr. Aceves, attending cash van salesperson. HISTORY OF PRESENT ILLNESS: Julio Cesar Sandhu [...] Hyperkalemia ??? ESRD (end stage renal disease) ([facility]) dialysis T-TH-Sat ??? Blind ??? DVT (deep venous thrombosis) ([facility]) ??? Orthostasis ??? Diabetes mellitus (HCC) ??? Syncope ??? Hypertension ??? A-V fistula (HCC) left forearm ??? Hyperlipemia ??? Cognitive deficits ??? Anemia ??? Sleep apnea CPAP ??? Chronic in-center hemodialysis status (HCC) ??? Hyperlipidaemia PSH: Past Surgical History Procedure [...] Aminoacetate] GI Disturbance GI bleeding Home Meds: SALES REPRESENTATIVE SUPERVISOR Meds Prior to Admission medications Medication Sig [...] time Yes Unknown, Entered By History b mkfjwiq-J-grndx acid (NEPHROCAPS) 1 MG capsule Take 1 [...] 1-5 Units Subcutaneous At Bedtime ??? B krcputy-X-mepzt acid 1 capsule Oral Daily with supper [...] Date 12/19/15 07 - 12/20/15 0659 Shift [id number] [id number] 9644-1709 24 Hour Total I N T A [...] the above assessment and plan. Mike Aceves ROOM SUPERVISOR Ezequiel Pierre MD - 12/17/2015 3:31 PM CSTAssociated Order(s): INFECTIOUS DISEASES IP CONSULT [facility] Infectious Disease Consultation Date of Admission: 12/16/2015 [...] at the time of dialysis at the [facility]. History is obtained from the [...] Hyperkalemia ??? ESRD (end stage renal disease) ([facility]) dialysis T--Tue ??? Blind ??? DVT (deep venous thrombosis) ([facility]) ??? Orthostasis ??? Diabetes mellitus (HCC) ??? Syncope ??? Hypertension ??? A-V fistula (HCC) left forearm ??? Hyperlipemia ??? Cognitive deficits ??? Anemia ??? Sleep apnea CPAP ??? Chronic in-center hemodialysis status (HCC) ??? Hyperlipidaemia Past Surgical History I have [...] (CALCIUM ACETATE PO) 12/16/2015 at Unknown time Plant Attendant Or Assistant Operator Yes Yes Sig: Take 1,334 mg by mouth 3 times daily (with meals) Takes with meals and snacks (2 x 667mg tablet) Cholecalciferol (VITAMIN D3 PO) 12/16/2015 at Unknown time Plant Attendant Or Assistant Operator Yes Yes Sig: Take 2,000 Units by mouth daily LISINOPRIL PO 12/16/2015 at Unknown time Plant Attendant Or Assistant Operator Yes Yes Sig: Take 20 mg by mouth daily Take on M, W, F, Leger (Non-dialysis days only) Metoprolol Tartrate (LOPRESSOR PO) 12/15/2015 at Unknown time Plant Attendant Or Assistant Operator Yes Yes Sig: Take 100 mg by mouth 2 times daily In the AM and at Noon. Takes on M, W, F, Leger (Non-dialysis days only) WARFARIN SODIUM PO 12/15/2015 at Unknown time Plant Attendant Or Assistant Operator Yes Yes Sig: Take 5 mg by mouth every evening b nlgraly-V-apzeh acid (NEPHROCAPS) 1 MG capsule 12/15/2015 at Unknown time Plant Attendant Or Assistant Operator Yes Yes Sig: Take 1 capsule by mouth daily (with dinner) bisacodyl (DULCOLAX) 5 MG EC tablet 12/15/2015 at Unknown time Plant Attendant Or Assistant Operator Yes Yes Sig: Take 10 mg by mouth See Admin Instructions Take on BID on M, W, F, Leger (Non- dialysis days only) calcium acetate (PHOSLO) 667 MG CAPS PRN Plant Attendant Or Assistant Operator Yes Yes Sig: Take 667 mg by mouth 3 times daily as needed (With snacks) simvastatin (ZOCOR) 40 MG tablet 12/15/2015 at Unknown time Plant Attendant Or Assistant Operator Yes Yes Sig: Take 40 mg by mouth every evening vitamin B complex with vitamin C (VITAMIN B COMPLEX) TABS 12/15/2015 at Unknown time Plant Attendant Or Assistant Operator Yes Yes Sig: Take 1 tablet [...] Susceptibility testing done on previous specimen * ROOM SUPERVISOR documented in this encounter ED Notes Rula Cali RN - 12/16/2015 5:30 PM CST [facility] ED Nurse Handoff Report Patient Name: Julio Cesar Sandhu Date of : 1965 Age: [age] year old Date of Admission: 12/16/2015 ED Chief complaint: Fever ED Diagnosis: Final diagnoses: Fever Code Status: Full Code Allergies: Allergies Allergen Reactions ??? Aspirin [Dihydroxyaluminum Aminoacetate] GI Disturbance GI bleeding Activity level: Stand with Assist Fire Supervisor Needed?: No Isolation: No Infection: Not Applicable [...] peripheral IV, we are trying to contact stringing machine tender to draw a second set from the [...] Number of days:27 ED NURSE PHONE NUMBER: [phone] ROOM SUPERVISOR Emeka Becerra - 12/16/2015 4:17 PM CST Pt on bearpaws ROOM SUPERVISOR Caryn Jacobson RN - 12/16/2015 3:06 PM CST Pt to XR ROOM SUPERVISOR Georgia Perez MD - 12/16/2015 2:29 PM [...] 1448 Indication: fever Vent. Rate 74 bpm. CA interval 188 ms. QRS duration 102 ms. [...] (1712) I discussed the patient with Dr. Styles Nephrology. (1732) I discussed the patient with [...] able to help us contact the specific [facility] site for the answers above. Otherwise at this time the patient remains hemodynamically stable. He does have an elevated INR and a low sodium, which is baseline. Otherwise he will be brought in by internal medicine for continued care. Diagnosis: ICD-10-CM 1. Fever R50.9 Influenza A/B antigen Charlene Gentile, am serving as a scribe on 12/16/2015 at 2:35 PM to personally document services performed by Dr. Perez based on my observations and the provider's statements to me. 12/16/2015 EMERGENCY DEPARTMENT Georgia Perez MD 12/16/15 2300 ROOM SUPERVISOR Arianna Corea, LINDA - 12/16/2015 2:22 PM CST Bed: ED27 Expected date: Expected time: Means of arrival: Comments: Hold for [facility] pt ROOM SUPERVISOR documented in this encounter Miscellaneous Notes Plan [...] intake, had 600 cc intake this shift. ROOM SUPERVISOR Pharmacy - Angela Kay RP - 12/20/2015 4:11 PM CST Prescriber Notification Note The pharmacist has communicated with this patient's provider regarding a concern or therapy recommendation. Notified Person: Vascular cash van salesperson (Danish Diaz MD) Date/Time of Notification: 12/20/15 @ 1600 Interaction: phone Concern/Recommendation: Resume warfarin after today's procedure? Or hold off? Comments/Additional Details: Hold until tomorrow and will re-evaluate then. ROOM SUPERVISOR Pharmacy-Vancomycin Dosing Service - Viridiana Quinonez RP - 12/20/2015 2:57 PM PREP ROOM SUPERVISOR Pharmacy Vancomycin Note Date of Service December [...] weekly for subsequent weeks. Viridiana Quinonez . ROOM SUPERVISOR Plan of Care - Rachel Flores RN - 12/20/2015 1:57 PM CST Problem: Goal Outcome Summary Goal: Goal Outcome Summary Outcome: No Change A/O x4. Up w/SBA. Denies pain. VSS on RA. Renal diet. Good appetite. Had dialysis today. Dressing over L wound CDI. BGM 133 and 156. Nephrology, ID and vascular following. Continue to monitor. ROOM SUPERVISOR Op Note - Mike Aceves MD - 12/20/2015 8:53 AM CST PREOPERATIVE DIAGNOSIS: Draining infection, left proximal thigh, status post ligation of left proximal thigh dialysis graft. POSTOPERATIVE DIAGNOSIS: Infected PTFE dialysis graft. PROCEDURE: Incision and drainage. Excision of infected graft. [facility] ATTENDANT: Vi Rocha MD DESCRIPTION OF PROCEDURE: Julio [...] Name: JULIO CESAR SANDHU MRN: [id number] Account: [id number] : 1965 Procedure Date: 12/19/2015 Document: [id number] The left thigh wound was sharply debrided [...] AM. Up SBA. Will continue to monitor. ROOM SUPERVISOR Plan of Care - Rayna Ching RN - 12/19/2015 10:51 PM CST Problem: Goal Outcome Summary Goal: Goal Outcome Summary Outcome: No Change A &O x4, Denies pain when asked. I&D of left groin fistula completed this evening, dressing dry/intact, hypertensive, afebrile on renal diet. BG 124 at HS, Pt doesn't make urine will have dialysis tomorrow. ROOM SUPERVISOR Brief Op Note - Vi Rocha MD - 12/19/2015 6:37 PM CST [facility] Brief Operative Note Pre-operative diagnosis: UNSPECIFIED [...] and a stump of PTFE was oversewn ROOM SUPERVISOR Plan of Care - Isis Dougherty RN - 12/19/2015 2:33 PM CST Problem: [...] this afternoon for I&D L groin wound ROOM SUPERVISOR Provider Notification - Pavan Roy, RN - 12/19/2015 8:30 AM PREP ROOM SUPERVISOR Dr. Kim and Dr. Wisdom notified of left upper thigh fistula. Small opening the size of a pencil eraser head, moderate amount of purulent/bloody drainage. Wound culture taken. Vascular surgery consulted. ROOM SUPERVISOR Plan of Care - Rachel Flores RN - 12/19/2015 5:01 AM CST Problem: Goal Outcome Summary Goal: Goal Outcome Summary Outcome: No Change A/O x4. Up w/SBA. Denies pain. Hypertensive at times, IV hydralazine given. Otherwise VSS on RA. Renal diet. BGM 163 and 156. Nephrology and ID following. Cultures pending. Continue to monitor. ROOM SUPERVISOR Plan of Care - Mary Johnson RN - 12/18/2015 4:02 PM CST Problem: Goal Outcome Summary Goal: Goal Outcome Summary Outcome: Improving Pt denies any discomfort. Had dialysis today. Appetite good for lunch. Blood sugars stable. VSS. ROOM SUPERVISOR Pharmacy-Vancomycin Dosing Service - Compa Desai, [facility] - 12/18/2015 1:16 PM PREP ROOM SUPERVISOR Pharmacy Vancomycin Note Date of Service December [...] weekly for subsequent weeks. Compa Desai . ROOM SUPERVISOR Plan of Care - Rachel Flores RN - 12/18/2015 5:18 AM CST Problem: Goal Outcome Summary Goal: Goal Outcome Summary Outcome: No Change A/O x4. Up w/SBA. Denies pain. Hypertensive, PRN hydralazine given. Dressing over inguinal dialysis port changed by stringing machine tender, CDI. Renal diet. Nephrology and ID following. BGM 122 and 149. Continue to monitor. ROOM SUPERVISOR Plan of Care - Mary Johnson RN - 12/17/2015 4:47 PM CST Problem: Goal Outcome Summary Goal: Goal Outcome Summary Outcome: Improving Pt denies any discomfort. Low grade temp, BP slightly elevated, other VSS. Right inguinal dialysis port site clean and dry. Appetite is very good. Pt has been up in chair a good part of the day, requires only SBA. ROOM SUPERVISOR Utilization Review - Aldo Salgado MD - [...] section 70.4. Sincerely, ALDO SALGADO MD System [employer] Utilization Review/ Case Management [facility]. ROOM SUPERVISOR Plan of Care - Rachel Flores RN - 12/17/2015 5:19 AM CST Problem: Goal Outcome Summary Goal: Goal Outcome Summary Outcome: No Change A?O x4. Up w/SBA. VSS on RA, temp down to 99.8 after tylenol. Denies pain. IV vanco and rocephin given. Right inguinal dialysis port, dressing CDI. Renal diet. Nephrology consulted. Continue to monitor. ROOM SUPERVISOR Pharmacy-Vancomycin Dosing Service - Ariana Suazo PharmD - 12/16/2015 9:36 PM CST Pharmacy Vancomycin Initial Note Date of Service December 16, 2015 Patient's 1965 50 year old, male ABW ~ 91 kg Pt has been receiving outpatient dialysis /. Indication: Sepsis Current estimated CrCl = Estimated [...] 200 mL PREMIX 1,000 mg Intravenous ONCE 12/16/156 12/16/[address] [place] - receiving intermittent dosing [...] least twice weekly for subsequent weeks. 5. [place] method utilized to dose vancomycin therapy: Method 2 Ariana Suazo PharmD ROOM SUPERVISOR Pharmacy-Anticoagulation Service - Ariana Suazo PharmD - 12/16/2015 7:57 PM CST Clinical Pharmacy - Warfarin Dosing Consult Pharmacy has been consulted to manage this patient???s warfarin therapy. Indication: DVT/ PE Treatment Therapy Goal: INR 2-3 Warfarin Prior to Admission: Yes Warfarin SALES REPRESENTATIVE SUPERVISOR Regimen: 5 mg po daily Significant drug [...] procedure or if the warfarin goals change. ROOM SUPERVISOR Pharmacy-Admission Medication History - Angela Kay, [facility] - 12/16/2015 4:34 PM CST Admission medication history interview status for the 12/16/2015 admission is complete. See [facility] admission navigator for prior to admission medications Medication history source reliability:Good Actions taken by pharmacist (provider contacted, etc): Called [facility] in [place] at [phone] and talked to RN Teo who faxed over a copy of his med list including his current warfarin dose. 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 med list :None Medication reconciliation/reorder completed by [...] time Yes Unknown, Entered By History b jtzcgbv-S-kbfum acid (NEPHROCAPS) 1 MG capsule Take 1 capsule by mouth daily (with dinner) 12/15/2015 at Unknown time Yes Reported, Patient simvastatin (ZOCOR) 40 MG tablet Take 40 mg by mouth every evening 12/15/2015 at Unknown time Yes Reported, Patient ROOM SUPERVISOR documented in this encounter Plan of Treatment Scheduled Referrals Name Type Priority Associated Diagnoses Order S [facility] Home care nursing Referral Routine Cellulitis and abscess Ordered: [...] Fever, unspecified Re sults for this PM PREP ROOM SUPERVISOR fever cause procedure are i n the results section. GLUCOSE BY METER Routine 12/20/2015 4:45 Fever, unspecified Re sults for this PM PREP ROOM SUPERVISOR fever cause procedure are i n the results section. GLUCOSE BY METER Routine 12/20/2015 12:23 Fever, unspecified R esults for this PM PREP ROOM SUPERVISOR fever cause procedure are i n the results section. VANCOMYCIN LEVEL Routine 12/20/2015 9:10 Fever, unspecified Re sults for this AM PREP ROOM SUPERVISOR fever cause procedure are i n the results section. INR Routine 12/20/2015 9:10 Fever, unspecified Result s for this AM PREP ROOM SUPERVISOR fever cause procedure are i n the results section. BASIC METABOLIC PANEL Routine 12/20/2015 9:10 Fever, unspecifi ed Results for this AM PREP ROOM SUPERVISOR fever cause procedure are i n the results section. CBC WITH PLATELETS Routine 12/20/2015 9:10 Fever, unspecified Results for this AM PREP ROOM SUPERVISOR fever cause procedure are i n the results section. GLUCOSE BY METER Routine 12/20/2015 7:44 Fever, unspecified Re sults for this AM PREP ROOM SUPERVISOR fever cause procedure are i n the results section. GLUCOSE BY METER Routine 12/20/2015 1:54 Fever, unspecified Re sults for this AM PREP ROOM SUPERVISOR fever cause procedure are i n the results section. GLUCOSE BY METER Routine 12/19/2015 9:32 Fever, unspecified Re sults for this PM PREP ROOM SUPERVISOR fever cause procedure are i n the results section. GLUCOSE BY METER Routine 12/19/2015 7:22 Fever, unspecified Re sults for this PM PREP ROOM SUPERVISOR fever cause procedure are i n the results section. GLUCOSE BY METER Routine 12/19/2015 6:21 Fever, unspecified Re sults for this PM PREP ROOM SUPERVISOR fever cause procedure are i n the results section. WOUND CULTURE AEROBIC Routine 12/19/2015 6:01 Fever, unspecifi ed Results for this BACTERIAL PM PREP ROOM SUPERVISOR fever cause procedure are i n the results section. GRAM STAIN Routine 12/19/2015 6:01 Fever, unspecified Result s for this PM PREP ROOM SUPERVISOR fever cause procedure are i n the results section. ANAEROBIC BACTERIAL Routine 12/19/2015 6:01 Fever, unspecified Results for this CULTURE ROUTINE PM PREP ROOM SUPERVISOR fever cause procedure ar e in the results section. GLUCOSE BY METER Routine 12/19/2015 5:24 Fever, unspecified Re sults for this PM PREP ROOM SUPERVISOR fever cause procedure are i n the results section. IRRIGATION AND 12/19/2015 5:22 abscess left thigh DEBRIDEMENT, LOWER PM PREP ROOM SUPERVISOR at ligated EXTREMITY hemodialysis graft GLUCOSE BY METER Routine 12/19/2015 3:32 Fever, unspecified Re sults for this PM PREP ROOM SUPERVISOR fever cause procedure are i n the results section. GLUCOSE BY METER Routine 12/19/2015 1:06 Fever, unspecified Re sults for this PM PREP ROOM SUPERVISOR fever cause procedure are i n the results section. INFLUENZA A AND B & Routine 12/19/2015 8:57 Fever, unspecified Results for this RSV BY PCR AM PREP ROOM SUPERVISOR fever cause procedure are i n the results section. WOUND CULTURE AEROBIC Routine 12/19/2015 8:40 Fever, unspecifi ed Results for this BACTERIAL AM PREP ROOM SUPERVISOR fever cause procedure are i n the results section. GRAM STAIN Routine 12/19/2015 8:40 Fever, unspecified Result s for this AM PREP ROOM SUPERVISOR fever cause procedure are i n the results section. INR Routine 12/19/2015 8:11 Fever, unspecified Result s for this AM PREP ROOM SUPERVISOR fever cause procedure are i n the results section. BASIC METABOLIC PANEL Routine 12/19/2015 8:11 Fever, unspecifi ed Results for this AM PREP ROOM SUPERVISOR fever cause procedure are i n the results section. GLUCOSE BY METER Routine 12/19/2015 7:17 Fever, unspecified Re sults for this AM PREP ROOM SUPERVISOR fever cause procedure are i n the results section. GLUCOSE BY METER Routine 12/19/2015 1:57 Fever, unspecified Re sults for this AM PREP ROOM SUPERVISOR fever cause procedure are i n the results section. GLUCOSE BY METER Routine 12/18/2015 9:19 Fever, unspecified Re sults for this PM PREP ROOM SUPERVISOR fever cause procedure are i n the results section. GLUCOSE BY METER Routine 12/18/2015 5:28 Fever, unspecified Re sults for this PM PREP ROOM SUPERVISOR fever cause procedure are i n the results section. GLUCOSE BY METER Routine 12/18/2015 12:43 Fever, unspecified R esults for this PM PREP ROOM SUPERVISOR fever cause procedure are i n the results section. BLOOD CULTURE Routine 12/18/2015 10:00 Fever, unspecified Resu lts for this AM PREP ROOM SUPERVISOR fever cause procedure are i n the results section. VANCOMYCIN LEVEL Routine 12/18/2015 8:00 Fever, unspecified Re sults for this AM PREP ROOM SUPERVISOR fever cause procedure are i n the results section. INR Routine 12/18/2015 8:00 Fever, unspecified Result s for this AM PREP ROOM SUPERVISOR fever cause procedure are i n the results section. HEMOGLOBIN A1C Routine 12/18/2015 8:00 Fever, unspecified Resu lts for this AM PREP ROOM SUPERVISOR fever cause procedure are i n the results section. BASIC METABOLIC PANEL Routine 12/18/2015 8:00 Fever, unspecifi ed Results for this AM PREP ROOM SUPERVISOR fever cause procedure are i n the results section. CBC WITH PLATELETS Routine 12/18/2015 8:00 Fever, unspecified Results for this AM PREP ROOM SUPERVISOR fever cause procedure are i n the results section. GLUCOSE BY METER Routine 12/18/2015 6:49 Fever Results for this AM PREP ROOM SUPERVISOR procedure are i n the results section. GLUCOSE BY METER Routine 12/18/2015 2:19 Fever Results for this AM PREP ROOM SUPERVISOR procedure are i n the results section. GLUCOSE BY METER Routine 12/17/2015 9:35 Fever Results for this PM PREP ROOM SUPERVISOR procedure are i n the results section. BLOOD CULTURE STAT 12/17/2015 7:45 Fever Results for this PM PREP ROOM SUPERVISOR procedure are i n the results section. GLUCOSE BY METER Routine 12/17/2015 4:03 Fever Results for this PM PREP ROOM SUPERVISOR procedure are i n the results section. BLOOD CULTURE Routine 12/17/2015 3:46 Fever Results for this PM PREP ROOM SUPERVISOR procedure are i n the results section. ECHO COMPLETE Routine 12/17/2015 3:39 Results for this PM PREP ROOM SUPERVISOR procedure are i n the results section. LACTIC ACID Routine 12/17/2015 3:02 Fever Results for this PM PREP ROOM SUPERVISOR procedure are i n the results section. BLOOD CULTURE STAT 12/17/2015 3:02 Fever Results for this PM PREP ROOM SUPERVISOR procedure are i n the results section. BLOOD CULTURE STAT 12/17/2015 2:48 Fever Results for this PM PREP ROOM SUPERVISOR procedure are i n the results section. CBC WITH PLATELETS & Routine 12/17/2015 8:12 Fever Resu lts for this DIFFERENTIAL AM PREP ROOM SUPERVISOR procedure are i n the results section. INR Routine 12/17/2015 8:12 Fever Results for this AM PREP ROOM SUPERVISOR procedure are i n the results section. BASIC METABOLIC PANEL Routine 12/17/2015 8:12 Fever Res ults for this AM PREP ROOM SUPERVISOR procedure are i n the results section. VANCOMYCIN LEVEL Timed 12/16/2015 8:15 Fever Results for this PM PREP ROOM SUPERVISOR procedure are i n the results section. BLOOD CULTURE STAT 12/16/2015 5:14 Fever Results for this PM PREP ROOM SUPERVISOR procedure are i n the results section. INFLUENZA A/B ANTIGEN STAT 12/16/2015 4:48 Fever Res ults for this PM PREP ROOM SUPERVISOR procedure are i n the results section. XR CHEST 2 VIEWS STAT 12/16/2015 3:19 Results for this PM PREP ROOM SUPERVISOR procedure are i n the results section. PROCALCITONIN Routine 12/16/2015 3:01 Fever Results for this PM PREP ROOM SUPERVISOR procedure are i n the results section. CBC WITH PLATELETS & STAT 12/16/2015 3:01 Resu lts for this DIFFERENTIAL PM PREP ROOM SUPERVISOR procedure are i n the results section. INR STAT 12/16/2015 3:01 Results for this PM PREP ROOM SUPERVISOR procedure are i n the results section. LIPASE STAT 12/16/2015 3:01 Results for this PM PREP ROOM SUPERVISOR procedure are i n the results section. COMPREHENSIVE STAT 12/16/2015 3:01 Results for this METABOLIC PANEL PM PREP ROOM SUPERVISOR procedure ar e in the results section. EKG 12-LEAD, TRACING STAT 12/16/2015 2:48 Resu lts for this ONLY PM PREP ROOM SUPERVISOR procedure are i n the results section. BLOOD CULTURE Timed 12/16/2015 7:30 Fever Results for this AM PREP ROOM SUPERVISOR procedure are i n the results section. BLOOD CULTURE Timed 12/16/2015 7:30 Fever Results for this AM PREP ROOM SUPERVISOR procedure are i n the results section. documented in this encounter Results (ABNORMAL) Glucose by meter (12/22/2015 11:02 AM CDT) P athologist Signature Glucose 193 (H) 70 - 99 POINT OF CARE mg/dL TEST, GLUCOSE Specimen Anatomical Collection Method Collection Time Receive d Time (Source) Location / / Volume Laterality 12/22/2015 11:02 12/22/2015 AM CDT 11:06 AM CDT Enrike Navarro MD LAB - BEAKER POCT Performing Organization Address [facility]/ZIP Code Phon e Number FV POINT OF CARE TEST, GLUCOSE POINT OF CARE TEST, GLUCOSE Glucose by meter (12/22/2015 7:54 AM CDT) P athologist Signature Glucose 88 70 - 99 POINT OF CARE mg/dL TEST, GLUCOSE Specimen Anatomical Collection Method Collection Time Receive d Time (Source) Location / / Volume Laterality 12/22/2015 7:54 AM 6 8:01 CDT AM CDT Enrike Navarro MD LAB - BEAKER POCT Performing Organization Address City/[facility]/ZIP Code Phon e Number FV POINT OF CARE TEST, GLUCOSE POINT OF CARE TEST, GLUCOSE (ABNORMAL) INR (12/22/2015 7:54 AM CDT) P athologist Signature INR 1.90 (H) 0.86 - 1.14 [facility] Specimen Anatomical Collection Method Collection Time Receive d Time (Source) Location / / Volume Laterality Blood specimen 12/22/2015 7:54 AM 016 8:25 (specimen) CDT AM CDT Vi Rocha MD LAB - BLOOD ORDERABLES Performing Organization Address City/[facility]/ZIP Code Phon e Number M [facility] [address] [address] [phone] [facility] [address] [address], [place] [phone] (ABNORMAL) CBC with platelets (12/22/2015 7:54 AM CDT) Analysis Performed At Patho logist Time Signature WBC 5.5 4.0 - 11.0 [facility] 10e9/L [facility] RBC Count 3.11 (L) 4.4 - 5.9 [facility] 10e12/L [facility] Hemoglobin 7.8 (L) 13.3 - [facility] 17.7 g/dL [facility] Hematocrit 25.5 (L) 40.0 - [facility] 53.0 % [facility] MCV 82 78 - 100 [place] fl [facility] MCH 25.1 (L) 26.5 - [facility] 33.0 pg [facility] MCHC 30.6 (L) 31.5 - [facility] 36.5 g/dL [facility] RDW 18.1 (H) 10.0 - [facility] 15.0 % [facility] Platelet Count 154 150 - 450 [facility] 10e9/L [facility] Specimen Anatomical Collection Method Collection Time Receive d Time (Source) Location / / Volume Laterality Blood specimen 12/22/2015 7:54 AM 016 8:25 (specimen) CDT AM CDT Koko Singh DO LAB - BLOOD ORDERABLES Performing Organization Address City/State/ZIP Code Phon e Number M [facility] [address] [phone] [facility] [address] [phone], [facility] [phone] (ABNORMAL) Basic metabolic panel (12/22/2015 7:54 AM CDT) Analysis Performed At Patho logist Time Signature Sodium 132 (L) 133 - 144 [place] mmol/L [facility] Potassium 5.4 (H) 3.4 - 5.3 [facility] mmol/L [facility] Chloride 99 94 - 109 [place] mmol/L [facility] Carbon Dioxide 27 20 - 32 [place] mmol/L [facility] Anion Gap 6 3 - 14 [place] mmol/L [facility] Glucose 90 70 - 99 [place] mg/dL [facility] Urea Nitrogen 62 (H) 7 - 30 [facility] mg/dL [facility] Creatinine 9.27 (H) 0.66 - [facility] 1.25 mg/dL [facility] GFR Estimate 6 (L) >60 [place] mL/min/1.[address] Comment: Non GFR Calc GFR Estimate If Black 7 (L) >60 mL/min/1.7m2 [facility] Comment: GFR Calc Calcium 8.7 8.5 - 10.1 mg/dL [facility] Specimen Anatomical Collection Method Collection Time Receive d Time (Source) Location / / Volume Laterality Blood specimen 12/22/2015 7:54 AM 016 8:25 (specimen) CDT AM CDT Koko Singh DO LAB - BLOOD ORDERABLES Performing Organization Address City/State/ZIP Code Phon e Number M [facility] [address] [place] [address] [facility] [address] [place] [address], [place] [phone] Glucose by meter (12/22/2015 1:36 AM CDT) P athologist Signature Glucose 88 70 - 99 POINT OF CARE mg/dL TEST, GLUCOSE Specimen Anatomical Collection Method Collection Time Receive d Time (Source) Location / / Volume Laterality 12/22/2015 1:36 AM 6 1:40 CDT AM CDT Enrike HERNANDEZ POCT Performing Organization Address City/State/ZIP [...] PM 6 9:30 CDT PM CDT Enrike HERNANDEZ POCT Performing Organization Address City/State/ZIP [...] DEAN - DAVID POCT Performing Organization Address City/[facility]/ZIP Code Phon e Number FV POINT [...] CDT 11:05 AM CDT Enrike DEAN - DAVID POCT Performing Organization Address City/[facility]/ZIP Code Phon e Number FV POINT OF CARE TEST, GLUCOSE POINT OF CARE TEST, GLUCOSE (ABNORMAL) INR (12/21/2015 7:40 AM CDT) P athologist Signature INR 2.02 (H) 0.86 - 1.14 [facility] Specimen Anatomical Collection Method Collection Time Receive d Time (Source) Location / / Volume Laterality Blood specimen 12/21/2015 7:40 AM 016 8:09 (specimen) CDT AM CDT Vi Rocha MD LAB - BLOOD ORDERABLES Performing Organization Address City/[facility]/ZIP [facility] Phon e Number M [facility] [address] [phone] [facility] [address] [address], [facility] [phone] (ABNORMAL) CBC with platelets (12/21/2015 7:40 AM CDT) Analysis Performed At Patho logist Time Signature WBC 5.2 4.0 - 11.0 [facility] 10e9/L [facility] RBC Count 3.29 (L) 4.4 - 5.9 [facility] 10e12/L [facility] Hemoglobin 8.2 (L) 13.3 - [facility] 17.7 g/dL [facility] Hematocrit 27.2 (L) 40.0 - [facility] 53.0 % [facility] MCV 83 78 - 100 [place] fl [facility] MCH 24.9 (L) 26.5 - [facility] 33.0 pg [facility] MCHC 30.1 (L) 31.5 - [facility] 36.5 g/dL [facility] RDW 17.8 (H) 10.0 - [facility] 15.0 % [facility] Platelet Count 153 150 - 450 [facility] 10e9/L [facility] Specimen Anatomical Collection Method Collection Time Receive d Time (Source) Location / / Volume Laterality Blood specimen 12/21/2015 7:40 AM 016 8:09 (specimen) CDT AM CDT Danis Kim MD LAB - BLOOD ORDERABLES Performing Organization Address City/State/ZIP Code Phon e Number M [facility] [address] [phone] [facility] [address] [address], [facility] [phone] (ABNORMAL) Basic metabolic panel (12/21/2015 7:40 AM CDT) Analysis Performed At Patho logist Time Signature Sodium 135 133 - 144 [place] mmol/L [facility] Potassium 4.7 3.4 - 5.3 [facility] mmol/L [facility] Chloride 99 94 - 109 [place] mmol/L [facility] Carbon Dioxide 27 20 - 32 [place] mmol/L [facility] Anion Gap 9 3 - 14 [place] mmol/L [facility] Glucose 110 (H) 70 - 99 [place] mg/dL [facility] Urea Nitrogen 50 (H) 7 - 30 [facility] mg/dL [facility] Creatinine 7.71 (H) 0.66 - [facility] 1.25 mg/dL [facility] GFR Estimate 7 (L) >60 [place] mL/min/1.[address] Comment: Non GFR Calc GFR Estimate If Black 9 (L) >60 mL/min/1.7m2 [facility] Comment: GFR Calc Calcium 8.4 (L) 8.5 - 10.1 mg/dL [facility] Specimen Anatomical Collection Method Collection Time Receive d Time (Source) Location / / Volume Laterality Blood specimen 12/21/2015 7:40 AM 016 8:09 (specimen) CDT AM CDT Danis Kim MD LAB - BLOOD ORDERABLES Performing Organization Address City/State/ZIP Code Phon e Number M [facility] [address] [place] [address] [facility] [address] [place] [address], [place] [phone] (ABNORMAL) Glucose by meter (12/21/2015 3:37 AM CDT) P athologist Signature Glucose 134 (H) 70 - 99 POINT OF CARE mg/dL TEST, GLUCOSE Specimen Anatomical Collection Method Collection Time Receive d Time (Source) Location / / Volume Laterality 12/21/2015 3:37 AM 6 3:46 CDT AM CDT Enrike HERNANDEZ POCT Performing Organization Address City/State/ZIP Code Phon e Number FV POINT OF CARE TEST, GLUCOSE POINT OF CARE TEST, GLUCOSE (ABNORMAL) Glucose by meter (12/20/2015 9:08 PM PREP ROOM SUPERVISOR) P athologist Signature Glucose 134 (H) 70 - 99 POINT OF CARE mg/dL TEST, GLUCOSE Specimen Anatomical Collection Method Collection Time Receive d Time (Source) Location / / Volume Laterality 12/20/2015 9:08 PM 6 9:15 PREP ROOM SUPERVISOR PM PREP ROOM SUPERVISOR Enrike HERNANDEZ POCT Performing Organization Address City/State/ZIP Code Phon e Number FV POINT OF CARE TEST, GLUCOSE POINT OF CARE TEST, GLUCOSE (ABNORMAL) Glucose by meter (12/20/2015 4:45 PM PREP ROOM SUPERVISOR) P athologist Signature Glucose 143 (H) 70 - 99 POINT OF CARE mg/dL TEST, GLUCOSE Specimen Anatomical Collection Method Collection Time Receive d Time (Source) Location / / Volume Laterality 12/20/2015 4:45 PM 6 4:51 PREP ROOM SUPERVISOR PM PREP ROOM SUPERVISOR Enrike HERNANDEZ POCT Performing Organization Address City/State/ZIP Code Phon e Number FV POINT OF CARE TEST, GLUCOSE POINT OF CARE TEST, GLUCOSE (ABNORMAL) Glucose by meter (12/20/2015 12:23 PM PREP ROOM SUPERVISOR) P athologist Signature Glucose 156 (H) 70 - 99 POINT OF CARE mg/dL TEST, GLUCOSE Specimen Anatomical Collection Method Collection Time Receive d Time (Source) Location / / Volume Laterality 12/20/2015 12:23 12/20/2015 PM PREP ROOM SUPERVISOR 12:25 PM PREP ROOM SUPERVISOR Enrike DEAN - DAVID POCT Performing Organization Address City/State/ZIP Code Phon e Number FV POINT OF CARE TEST, GLUCOSE POINT OF CARE TEST, GLUCOSE (ABNORMAL) INR (12/20/2015 9:10 AM PREP ROOM SUPERVISOR) athologist Signature INR 2.31 (H) 0.86 - 1.14 [facility] Specimen Anatomical Collection Method Collection Time Receive d Time (Source) Location / / Volume Laterality Blood specimen 12/20/2015 9:10 AM 016 9:19 (specimen) PREP ROOM SUPERVISOR AM PREP ROOM SUPERVISOR Vi Rocha MD LAB - BLOOD ORDERABLES Performing Organization Address City/[facility]/ZIP Code Phon e Number M [facility] [address] [phone] [facility] [address] [address], [facility] [phone] (ABNORMAL) CBC with platelets (12/20/2015 9:10 AM PREP ROOM SUPERVISOR) Analysis Performed At Patho logist Time Signature WBC 5.3 4.0 - 11.0 [facility] 10e9/L [facility] RBC Count 3.38 (L) 4.4 - 5.9 [facility] 10e12/L [facility] Hemoglobin 8.5 (L) 13.3 - [facility] 17.7 g/dL [facility] Hematocrit 27.2 (L) 40.0 - [facility] 53.0 % [facility] MCV 81 78 - 100 [place] fl [facility] MCH 25.1 (L) 26.5 - [facility] 33.0 pg [facility] MCHC 31.3 (L) 31.5 - [facility] 36.5 g/dL [facility] RDW 17.7 (H) 10.0 - [facility] 15.0 % [facility] Platelet Count 147 (L) 150 - 450 [facility] 10e9/L [facility] Specimen Anatomical Collection Method Collection Time Receive d Time (Source) Location / / Volume Laterality Blood specimen 12/20/2015 9:10 AM 016 9:19 (specimen) PREP ROOM SUPERVISOR AM PREP ROOM SUPERVISOR Vi Rocha MD LAB - BLOOD ORDERABLES Performing Organization Address City/State/ZIP Code Phon e Number M [facility] [address] [address] [facility] [address] [address], [place] [phone] (ABNORMAL) Basic metabolic panel (12/20/2015 9:10 AM PREP ROOM SUPERVISOR) Analysis Performed At Patho logist Time Signature Sodium 137 133 - 144 [place] mmol/L [facility] Potassium 3.1 (L) 3.4 - 5.3 [place] mmol/L [facility] Chloride 98 94 - 109 [place] mmol/L [facility] Carbon Dioxide 31 20 - 32 [place] mmol/L [facility] Anion Gap 8 3 - 14 [place] mmol/L [facility] Glucose 107 (H) 70 - 99 [place] mg/dL [facility] Urea Nitrogen 11 7 - 30 [place] mg/dL [facility] Creatinine 1.70 (H) 0.66 - [facility] 1.25 mg/dL [facility] GFR Estimate 42 (L) >60 [place] mL/min/1.[address] Comment: Non GFR Calc GFR Estimate If Black 51 (L) >60 mL/min/1.7m2 [facility] Comment: GFR Calc Calcium 7.4 (L) 8.5 - 10.1 mg/dL [facility] Specimen Anatomical Collection Method Collection Time Receive d Time (Source) Location / / Volume Laterality Blood specimen 12/20/2015 9:10 AM 016 9:19 (specimen) PREP ROOM SUPERVISOR AM PREP ROOM SUPERVISOR Vi Rocha MD LAB - BLOOD ORDERABLES Performing Organization Address City/State/ZIP Code Phon e Number M [facility] [address] [place] [address] [facility] [address] [place] [address], [place] [phone] Vancomycin level (12/20/2015 9:10 AM PREP ROOM SUPERVISOR) P athologist Signature Vancomycin 18.8 mg/L [facility] Comment: Traditional Dosing therapeutic Range: ?Trough 8-20 mg/L ?Peak 20-50 mg/L Specimen Anatomical Collection Method Collection Time Receive d Time (Source) Location / / Volume Laterality Blood specimen 12/20/2015 9:10 AM 016 9:19 (specimen) PREP ROOM SUPERVISOR AM PREP ROOM SUPERVISOR Vi Rocha MD LAB - BLOOD ORDERABLES Performing Organization Address City/[facility]/ZIP Code Phon e Number M [facility] [address] [place] [address] [facility] [address] [place] [address], [place] [phone] (ABNORMAL) Glucose by meter (12/20/2015 7:44 AM PREP ROOM SUPERVISOR) P athologist Signature Glucose 133 (H) 70 - 99 POINT OF CARE mg/dL TEST, GLUCOSE Specimen Anatomical Collection Method Collection Time Receive d Time (Source) Location / / Volume Laterality 12/20/2015 7:44 AM 6 7:50 PREP ROOM SUPERVISOR AM PREP ROOM SUPERVISOR Enrike Navarro MD LAB - BEAKER POCT Performing Organization Address City/State/ZIP Code Phon e Number FV POINT OF CARE TEST, GLUCOSE POINT OF CARE TEST, GLUCOSE (ABNORMAL) Glucose by meter (12/20/2015 1:54 AM PREP ROOM SUPERVISOR) P athologist Signature Glucose 121 (H) 70 - 99 POINT OF CARE mg/dL TEST, GLUCOSE Specimen Anatomical Collection Method Collection Time Receive d Time (Source) Location / / Volume Laterality 12/20/2015 1:54 AM 6 2:01 PREP ROOM SUPERVISOR AM PREP ROOM SUPERVISOR Enrike Navarro MD LAB - BEXIANG POCT Performing Organization Address City/State/ZIP Code Phon e Number FV POINT OF CARE TEST, GLUCOSE POINT OF CARE TEST, GLUCOSE (ABNORMAL) Glucose by meter (12/19/2015 9:32 PM PREP ROOM SUPERVISOR) P athologist Signature Glucose 124 (H) 70 - 99 POINT OF CARE mg/dL TEST, GLUCOSE Specimen Anatomical Collection Method Collection Time Receive d Time (Source) Location / / Volume Laterality 12/19/2015 9:32 PM 6 9:35 PREP ROOM SUPERVISOR PM PREP ROOM SUPERVISOR Enrike Navarro MD LAB - BEXIANG POCT Performing Organization Address City/[facility]/ZIP Code Phon e Number FV POINT OF CARE TEST, GLUCOSE POINT OF CARE TEST, GLUCOSE Glucose by meter (12/19/2015 7:22 PM PREP ROOM SUPERVISOR) P athologist Signature Glucose 73 70 - 99 POINT OF CARE mg/dL TEST, GLUCOSE Specimen Anatomical Collection Method Collection Time Receive d Time (Source) Location / / Volume Laterality 12/19/2015 7:22 PM 6 7:25 PREP ROOM SUPERVISOR PM PREP ROOM SUPERVISOR Enrike DEAN - DAVID POCT Performing Organization Address City/[facility]/ZIP Code Phon e Number FV POINT OF CARE TEST, GLUCOSE POINT OF CARE TEST, GLUCOSE Glucose by meter (12/19/2015 6:21 PM PREP ROOM SUPERVISOR) P athologist Signature Glucose 85 70 - 99 POINT OF CARE mg/dL TEST, GLUCOSE Specimen Anatomical Collection Method Collection Time Receive d Time (Source) Location / / Volume Laterality 12/19/2015 6:21 PM 6 7:05 PREP ROOM SUPERVISOR AM PREP ROOM SUPERVISOR Enrike Navarro MD LAB - BEXIANG POCT Performing Organization Address City/[facility]/ZIP Code Phon e Number FV POINT OF CARE TEST, GLUCOSE POINT OF CARE TEST, GLUCOSE (ABNORMAL) Wound Culture Aerobic Bacterial (12/19/2015 6:01 PM PREP ROOM SUPERVISOR) Component Value Ref Test Analysis Performed At [facility] gist Range Method Time Signature Specimen Wound Left Thigh [facility] Culture Micro Moderate growth [...] LEFT 12/19/2015 6:01 PM LOWER LIMB / PREP ROOM SUPERVISOR Unknown Organism Antibiotic Method Susceptibility Moderate growth [...] Code Phon e Number INFECTIOUS DISEASES [address] [place] [address] DIAGNOSTIC LABORATORY, [address] INFECTIOUS DISEASE [address] DIAGNOSTIC LABORATORY (ABNORMAL) Gram stain (12/19/2015 6:01 PM PREP ROOM SUPERVISOR) [facility] Method Time Signature Specimen Wound Left [facility] Gram Stain Rare Gram positive cocci MICR O RAPID Moderate PMNs seen TESTING LAB (A) Micro Report FINAL MICRO RAPID Status 12/19/2015 TESTING LAB Specimen (Source) Anatomical Collection Method Collection Time Re ceived Time Location / / Volume Laterality Swab (specimen) STRUCTURE OF LEFT 12/19/2015 6:01 PM LOWER LIMB / PREP ROOM SUPERVISOR Unknown Mike Aceves MD LAB - MICRO GENERAL ORD ERABLES Performing Organization Address City/[facility]/ZIP [facility] Phon e Number MICRO RAPID TESTING LAB [address] [place] [address] Anaerobic bacterial culture (12/19/2015 6:01 PM PREP ROOM SUPERVISOR) [facility] Method Time Signature Specimen Wound Left [facility] Special Received in [facility] anaerobic [place] MEDICAL tubes. [facility] Culture Micro No anaerobes INFECTIOUS isolated DISEASE DIAGNOSTIC LABORATORY Micro Report FINAL INFECTIOUS Status 12/26/2015 DISEASE DIAGNOSTIC LABORATORY Specimen (Source) Anatomical Collection Method Collection Time Re ceived Time Location / / Volume Laterality Swab (specimen) STRUCTURE OF LEFT 12/19/2015 6:01 PM LOWER LIMB / PREP ROOM SUPERVISOR Unknown Mike Aceves MD LAB - MICRO GENERAL ORD ERABLES Performing Organization Address City/State/ZIP Code Phon e Number INFECTIOUS DISEASES [address] [place] [address] DIAGNOSTIC LABORATORY, [address] [address] INFECTIOUS DISEASE [address] [place], [place] [address] DIAGNOSTIC LABORATORY Glucose by meter (12/19/2015 5:24 PM PREP ROOM SUPERVISOR) athologist Signature Glucose 86 70 - 99 POINT OF CARE mg/dL TEST, GLUCOSE Specimen Anatomical Collection Method Collection Time Receive d Time (Source) Location / / Volume Laterality 12/19/2015 5:24 PM 6 5:30 PREP ROOM SUPERVISOR PM PREP ROOM SUPERVISOR Enrike Navarro MD LAB - BEXIANG POCT Performing Organization Address City/State/ZIP Code Phon e Number FV POINT OF CARE TEST, GLUCOSE POINT OF CARE TEST, GLUCOSE Glucose by meter (12/19/2015 3:32 PM PREP ROOM SUPERVISOR) athologist Signature Glucose 88 70 - 99 POINT OF CARE mg/dL TEST, GLUCOSE Specimen Anatomical Collection Method Collection Time Receive d Time (Source) Location / / Volume Laterality 12/19/2015 3:32 PM 6 3:35 PREP ROOM SUPERVISOR PM PREP ROOM SUPERVISOR Enrike DEAN - DAVID POCT Performing Organization Address City/State/ZIP Code Phon e Number FV POINT OF CARE TEST, GLUCOSE POINT OF CARE TEST, GLUCOSE (ABNORMAL) Glucose by meter (12/19/2015 1:06 PM PREP ROOM SUPERVISOR) athologist Signature Glucose 134 (H) 70 - 99 POINT OF CARE mg/dL TEST, GLUCOSE Specimen Anatomical Collection Method Collection Time Receive d Time (Source) Location / / Volume Laterality 12/19/2015 1:06 PM 6 1:10 PREP ROOM SUPERVISOR PM PREP ROOM SUPERVISOR Enrike DEAN - DAVID POCT Performing Organization Address City/State/ZIP Code Phon e Number FV POINT OF CARE TEST, GLUCOSE POINT OF CARE TEST, GLUCOSE Influenza A and B and RSV PCR (12/19/2015 8:57 AM PREP ROOM SUPERVISOR) Component Value Ref Test Analysis Performed At [facility] gist Range Method Time Signature Specimen Nares [facility] Influenza A PCR Negative [facility] Flu A target RNA not detected, presumed negative for Influenza A or the viral [place] MEDICAL load is below the limit of detection. [facility] Influenza B PCR Negative NEG [facility] Flu B target RNA not detected, presumed negative for Influenza B or the viral [place] MEDICAL load is below the limit of detection. [facility] Resp Syncytial Negative [facility]G [facility] OF Virus RSV target RNA not detected , presumed negative for Respiratory Syncitial Virus [place] MEDICAL or the viral load is below the limit of detection. [facility] FDA approved assay performed using Shahab P. Tabatabai, Broker GeneXpert(R) r eal-time PCR. BANK Specimen Anatomical Collection Method Collection Time Receive d Time (Source) Location / / Volume Laterality SWAB FROM NASAL 12/19/2015 8:57 AM 2015 9:17 SINUS / Unknown PREP ROOM SUPERVISOR AM PREP ROOM SUPERVISOR Raúl Wisdom MD LAB - MICRO GENERAL ORDERABL ES Performing Organization Address City/State/ZIP Code Phon e Number [facility] [address] [place] [address] [facility] [address] [place] [address], [place] [phone] (ABNORMAL) Gram stain (12/19/2015 8:40 AM PREP ROOM SUPERVISOR) [facility] Method [facility] Signature Specimen Groin LEFT [facility] Gram Stain Few Gram positive cocci MICRO RAPID Many PMNs seen TESTING LAB Few WBC'S seen (A) Micro Report FINAL MICRO RAPID Status 12/19/2015 TESTING LAB Specimen Anatomical Collection Method Collection Time Receive d Time (Source) Location / / Volume Laterality Specimen from 12/19/2015 8:40 AM 12/19/19 16 9:14 wound (specimen) PREP ROOM SUPERVISOR AM PREP ROOM SUPERVISOR Raúl Wisdom MD LAB - MICRO GENERAL ORDERABL ES Performing Organization Address City/State/ZIP Code Phon e Number MICRO RAPID TESTING LAB [address] [place] [address] [facility] [address] [place] [address], [place] [phone] (ABNORMAL) Wound Culture Aerobic Bacterial (12/19/2015 8:40 AM PREP ROOM SUPERVISOR) Component Value Ref Test Analysis Performed At [employer] Range Method Time Signature Specimen Groin Left [facility] Culture Micro Moderate growth Staphylococc us aureus [...] 016 9:14 wound (specimen) WOUND / Unknown PREP ROOM SUPERVISOR AM PREP ROOM SUPERVISOR Organism Antibiotic Method Susceptibility Moderate growth Ciprofloxacin [...] Code Phon e Number INFECTIOUS DISEASES [address] [place] [address] DIAGNOSTIC LABORATORY, [id number] [place] [address] INFECTIOUS DISEASE [address] DIAGNOSTIC LABORATORY (ABNORMAL) INR (12/19/2015 8:11 AM PREP ROOM SUPERVISOR) P athologist Signature INR 2.41 (H) 0.86 - 1.14 [facility] Specimen Anatomical Collection Method Collection Time Receive d Time (Source) Location / / Volume Laterality Blood specimen 12/19/2015 8:11 AM 016 8:16 (specimen) PREP ROOM SUPERVISOR AM PREP ROOM SUPERVISOR Vi Rocha MD LAB - BLOOD ORDERABLES Performing Organization Address City/[facility]/ZIP Code Phon e Number [facility] [address] [place] [address] [phone] [facility] [address] [place] [address], U [phone] (ABNORMAL) Basic metabolic panel (12/19/2015 8:11 AM PREP ROOM SUPERVISOR) Analysis Performed At Patho logist Time Signature Sodium 130 (L) 133 - 144 [place] mmol/L [facility] Potassium 4.4 3.4 - 5.3 [facility] mmol/L [facility] Chloride 95 94 - 109 [facility] mmol/L [facility] Carbon Dioxide 26 20 - 32 [facility] mmol/L [facility] Anion Gap 9 3 - 14 [facility] mmol/L [facility] Glucose 132 (H) 70 - 99 [facility] mg/dL [facility] Urea Nitrogen 50 (H) 7 - 30 [facility] mg/dL [facility] Creatinine 8.35 (H) 0.66 - [facility] 1.25 mg/dL [facility] GFR Estimate 7 (L) >60 [place] mL/min/1.[address] Comment: Non GFR Calc GFR Estimate If Black 8 (L) >60 mL/min/1.7m2 [facility] Comment: GFR Calc Calcium 8.4 (L) 8.5 - 10.1 mg/dL [facility] Specimen Anatomical Collection Method Collection Time Receive d Time (Source) Location / / Volume Laterality Blood specimen 12/19/2015 8:11 AM 016 8:16 (specimen) PREP ROOM SUPERVISOR AM PREP ROOM SUPERVISOR Danis Kim MD LAB - BLOOD ORDERABLES Performing Organization Address City/State/ZIP Code Phon e Number [facility] [address] [place] [address] [facility] [address] [place] [address], [facility] [phone] (ABNORMAL) Glucose by meter (12/19/2015 7:17 AM PREP ROOM SUPERVISOR) P athologist Signature Glucose 104 (H) 70 - 99 POINT OF CARE mg/dL TEST, GLUCOSE Specimen Anatomical Collection Method Collection Time Receive d Time (Source) Location / / Volume Laterality 12/19/2015 7:17 AM 6 7:21 PREP ROOM SUPERVISOR AM PREP ROOM SUPERVISOR Enrike DEAN - BEXIANG POCT Performing Organization Address City/State/ZIP Code Phon e Number FV POINT OF CARE TEST, GLUCOSE POINT OF CARE TEST, GLUCOSE (ABNORMAL) Glucose by meter (12/19/2015 1:57 AM PREP ROOM SUPERVISOR) P athologist Signature Glucose 156 (H) 70 - 99 POINT OF CARE mg/dL TEST, GLUCOSE Specimen Anatomical Collection Method Collection Time Receive d Time (Source) Location / / Volume Laterality 12/19/2015 1:57 AM 6 2:06 PREP ROOM SUPERVISOR AM PREP ROOM SUPERVISOR Enrike DEAN - BEXIANG POCT Performing Organization Address City/State/ZIP Code Phon e Number FV POINT OF CARE TEST, GLUCOSE POINT OF CARE TEST, GLUCOSE (ABNORMAL) Glucose by meter (12/18/2015 9:19 PM PREP ROOM SUPERVISOR) P athologist Signature Glucose 163 (H) 70 - 99 POINT OF CARE mg/dL TEST, GLUCOSE Specimen Anatomical Collection Method Collection Time Receive d Time (Source) Location / / Volume Laterality 12/18/2015 9:19 PM 6 9:26 PREP ROOM SUPERVISOR PM PREP ROOM SUPERVISOR Enrike Navarro MD LAB - DAVID POCT Performing Organization Address City/[facility]/ZIP Code Phon e Number FV POINT OF CARE TEST, GLUCOSE POINT OF CARE TEST, GLUCOSE (ABNORMAL) Glucose by meter (12/18/2015 5:28 PM PREP ROOM SUPERVISOR) P athologist Signature Glucose 155 (H) 70 - 99 POINT OF CARE mg/dL TEST, GLUCOSE Specimen Anatomical Collection Method Collection Time Receive d Time (Source) Location / / Volume Laterality 12/18/2015 5:28 PM 6 5:30 PREP ROOM SUPERVISOR PM PREP ROOM SUPERVISOR Enrike DEAN - DAVID POCT Performing Organization Address City/[facility]/ZIP Code Phon e Number FV POINT OF CARE TEST, GLUCOSE POINT OF CARE TEST, GLUCOSE (ABNORMAL) Glucose by meter (12/18/2015 12:43 PM PREP ROOM SUPERVISOR) P athologist Signature Glucose 102 (H) 70 - 99 POINT OF CARE mg/dL TEST, GLUCOSE Specimen Anatomical Collection Method Collection Time Receive d Time (Source) Location / / Volume Laterality 12/18/2015 12:43 12/18/2015 PM PREP ROOM SUPERVISOR 12:50 PM PREP ROOM SUPERVISOR Enrike DEAN - DAVID POCT Performing Organization Address City/State/ZIP Code Phon e Number FV POINT OF CARE TEST, GLUCOSE POINT OF CARE TEST, GLUCOSE Blood culture (12/18/2015 10:00 AM PREP ROOM SUPERVISOR) [facility] Method Time Signature Specimen Blood [facility] Special Aerobic and [facility] Requests anaerobic [facility] received Culture Micro No growth INFECTIOUS DISEASE DIAGNOSTIC LABORATORY Micro Report FINAL INFECTIOUS Status 12/24/2015 DISEASE DIAGNOSTIC LABORATORY Specimen Anatomical Collection Method Collection Time Receive d Time (Source) Location / / Volume Laterality Blood specimen BLOOD SPECIMEN / 12/18/2015 10:00 12/17 (specimen) Unknown AM PREP ROOM SUPERVISOR 10:22 AM PREP ROOM SUPERVISOR Danis Anders MD LAB - MICRO GENERAL ORDERABL ES Performing Organization Address City/State/ZIP Code Phon e Number INFECTIOUS DISEASES [address] [place] [address] DIAGNOSTIC LABORATORY, [id number] [place] [address] [address] [place] [address], [facility] INFECTIOUS DISEASE [address] [place], [place] [phone] [place] [address] DIAGNOSTIC LABORATORY (ABNORMAL) INR (12/18/2015 8:00 AM PREP ROOM SUPERVISOR) P athologist Signature INR 2.76 (H) 0.86 - 1.14 [facility] Specimen Anatomical Collection Method Collection Time Receive d Time (Source) Location / / Volume Laterality Blood specimen 12/18/2015 8:00 AM 016 8:13 (specimen) PREP ROOM SUPERVISOR AM PREP ROOM SUPERVISOR Vi Rocha MD LAB - BLOOD ORDERABLES Performing Organization Address City/State/ZIP Code Phon e Number [facility] [address] [address] [phone] [facility] [address] [address], [facility] [phone] (ABNORMAL) CBC with platelets (12/18/2015 8:00 AM PREP ROOM SUPERVISOR) Analysis Performed At Patho logist Time Signature WBC 8.9 4.0 - 11.0 [facility] 10e9/L [facility] RBC Count 3.56 (L) 4.4 - 5.9 [facility] 10e12/L [facility] Hemoglobin 9.1 (L) 13.3 - [facility] 17.7 g/dL [facility] Hematocrit 28.3 (L) 40.0 - [facility] 53.0 % [facility] MCV 80 78 - 100 [facility] MCH 25.6 (L) 26.5 - [facility] 33.0 pg [facility] MCHC 32.2 31.5 - [facility] 36.5 g/dL [facility] RDW 17.7 (H) 10.0 - [facility] 15.0 % [facility] Platelet Count 118 (L) 150 - 450 [facility] 10e9/L [facility] Specimen Anatomical Collection Method Collection Time Receive d Time (Source) Location / / Volume Laterality Blood specimen 12/18/2015 8:00 AM 016 8:13 (specimen) PREP ROOM SUPERVISOR AM PREP ROOM SUPERVISOR Danis Kim MD LAB - BLOOD ORDERABLES Performing Organization Address City/State/ZIP Code Phon e Number [facility] [address] [place] [address] [phone] [facility] [address] [place] [address], [place] [phone] (ABNORMAL) Basic metabolic panel (12/18/2015 8:00 AM PREP ROOM SUPERVISOR) [facility] Method Time Signature Sodium 128 (L) 133 - 144 [place] mmol/L [facility] Potassium 4.0 3.4 - 5.3 [facility] mmol/L [facility] Chloride 92 (L) 94 - 109 [facility] mmol/L [facility] Carbon Dioxide 24 20 - 32 [facility] mmol/L [facility] Anion Gap 12 3 - 14 [facility] mmol/L [facility] Glucose 123 (H) 70 - 99 [facility] mg/dL [facility] Urea Nitrogen 63 (H) 7 - 30 [facility] mg/dL [facility] Creatinine 11.70 (H) 0.66 - [facility] 1.25 mg/dL [facility] GFR Estimate 5 (L) >60 [place] mL/min/1.[address] Comment: Non GFR Calc GFR Estimate If Black 6 (L) >60 mL/min/1.7m2 [facility] Comment: GFR Calc Calcium 8.5 8.5 - 10.1 mg/dL [facility] Specimen Anatomical Collection Method Collection Time Receive d Time (Source) Location / / Volume Laterality Blood specimen 12/18/2015 8:00 AM 016 8:13 (specimen) PREP ROOM SUPERVISOR AM PREP ROOM SUPERVISOR Danis Kim MD LAB - BLOOD ORDERABLES Performing Organization Address City/State/ZIP Code Phon e Number M [facility] [address] [place] [address] [facility] [address] [place] [address], [place] [phone] Hemoglobin A1c (12/18/2015 8:00 AM PREP ROOM SUPERVISOR) [facility] gist Method Time Signature Hemoglobin A1C Below Assay Range 4.3 - 6.0 YAMINICHELI Lee Canceled, Test credited % VARGAS MATTHEWS REPORTED TO RN ON DIALYSIS AT [address] [place] [address] Specimen Anatomical Collection Method Collection Time Receive d Time (Source) Location / / Volume Laterality Blood specimen 12/18/2015 8:00 AM 016 8:13 (specimen) PREP ROOM SUPERVISOR AM PREP ROOM SUPERVISOR Danis Kim MD LAB - BLOOD ORDERABLES Performing Organization Address City/State/ZIP Code Phon e Number [facility] [address] [place] [address] [phone] [facility] [address] [place] [address], [place] [phone] Vancomycin level (12/18/2015 8:00 AM PREP ROOM SUPERVISOR) athologist Signature Vancomycin 24.6 mg/L [facility] Comment: Traditional Dosing therapeutic Range: ?Trough 8-20 mg/L ?Peak 20-50 mg/L Specimen Anatomical Collection Method Collection Time Receive d Time (Source) Location / / Volume Laterality Blood specimen 12/18/2015 8:00 AM 016 8:13 (specimen) PREP ROOM SUPERVISOR AM PREP ROOM SUPERVISOR [facility] LAB - BLOOD ORDERABLES Performing Organization Address City/State/ZIP Code Phon e Number M [facility] [address] [place] [address] [facility] [address] [place] [address], [place] [phone] (ABNORMAL) Glucose by meter (12/18/2015 6:49 AM PREP ROOM SUPERVISOR) P athologist Signature Glucose 104 (H) 70 - 99 POINT OF CARE mg/dL TEST, GLUCOSE Specimen Anatomical Collection Method Collection Time Receive d Time (Source) Location / / Volume Laterality 12/18/2015 6:49 AM 6 6:55 PREP ROOM SUPERVISOR AM PREP ROOM SUPERVISOR Enrike DEAN - DAVID POCT Performing Organization Address City/[facility]/ZIP Code Phon e Number FV POINT OF CARE TEST, GLUCOSE POINT OF CARE TEST, GLUCOSE (ABNORMAL) Glucose by meter (12/18/2015 2:19 AM PREP ROOM SUPERVISOR) P athologist Signature Glucose 149 (H) 70 - 99 POINT OF CARE mg/dL TEST, GLUCOSE Specimen Anatomical Collection Method Collection Time Receive d Time (Source) Location / / Volume Laterality 12/18/2015 2:19 AM 6 2:25 PREP ROOM SUPERVISOR AM PREP ROOM SUPERVISOR Enrike DEAN - DAVID POCT Performing Organization Address City/[facility]/ZIP Code Phon e Number FV POINT OF CARE TEST, GLUCOSE POINT OF CARE TEST, GLUCOSE (ABNORMAL) Glucose by meter (12/17/2015 9:35 PM PREP ROOM SUPERVISOR) P athologist Signature Glucose 122 (H) 70 - 99 POINT OF CARE mg/dL TEST, GLUCOSE Specimen Anatomical Collection Method Collection Time Receive d Time (Source) Location / / Volume Laterality 12/17/2015 9:35 PM 6 9:40 PREP ROOM SUPERVISOR PM PREP ROOM SUPERVISOR Enrike DEAN - DAVID POCT Performing Organization Address City/[facility]/ZIP Code Phon e Number FV POINT OF CARE TEST, GLUCOSE POINT OF CARE TEST, GLUCOSE Blood culture ONE site (12/17/2015 7:45 PM PREP ROOM SUPERVISOR) [facility] Method Time Signature Specimen Blood Blue [facility] port DIALYSIS [facility] Special Aerobic and [facility] Requests anaerobic [facility] received Culture Micro No growth [facility] Micro Report FINAL [facility] 12/23/2015 [facility] Specimen Anatomical Collection Method Collection Time Receive d Time (Source) Location / / Volume Laterality Blood specimen CATHETER / Unknown 12/17/2015 7:45 PM 0 12/17/2015 (specimen) PREP ROOM SUPERVISOR 10:02 PM PREP ROOM SUPERVISOR Georgia Perez MD LAB - MICRO GENERAL ORDER NADIA Performing Organization Address City/[facility]/ZIP Code Phon e Number [facility] [address] [place] [address] [facility] [address] [address], [place] [phone] (ABNORMAL) Glucose by meter (12/17/2015 4:03 PM PREP ROOM SUPERVISOR) P athologist Signature Glucose 188 (H) 70 - 99 POINT OF CARE mg/dL TEST, GLUCOSE Specimen Anatomical Collection Method Collection Time Receive d Time (Source) Location / / Volume Laterality 12/17/2015 4:03 PM 6 4:05 PREP ROOM SUPERVISOR PM PREP ROOM SUPERVISOR Enrike Navarro MD LAB - BEAKER POCT Performing Organization Address City/State/ZIP Code Phon e Number FV POINT OF CARE TEST, GLUCOSE POINT OF CARE TEST, GLUCOSE Blood culture (12/17/2015 3:46 PM PREP ROOM SUPERVISOR) Patholo gist Method Time Signature Specimen Blood [facility] Description [facility] Culture Micro Duplicate request [facility] Charge credited [facility] Micro Report FINAL [facility] Status 12/17/2015 [facility] Specimen Anatomical Collection Method Collection Time Receive d Time (Source) Location / / Volume Laterality Blood specimen 12/17/2015 3:46 PM 016 3:51 (specimen) PREP ROOM SUPERVISOR PM PREP ROOM SUPERVISOR Danis Kim MD LAB - MICRO GENERAL ORDERAB LES Performing Organization Address City/State/ZIP Code Phon e Number [facility] [address] [place] [address] [phone] [facility] [address] [address], [place] [phone] Echocardiogram (12/17/2015 3:39 PM PREP ROOM SUPERVISOR) Anatomical Region Laterality Modality Echocardiography Specimen (Source) Anatomical Collection Method Collection Time Re ceived Time Location / / Volume Laterality 12/17/2015 3:03 PM PREP ROOM SUPERVISOR Narrative 12/17/2015 4:30 PM PREP ROOM SUPERVISOR Interpretation Summary [facility] Echocardiography Laboratory [address] [address] Name: JULIO CEASR SANDHU : 1965 Study Date: 12/17/2015 03:03 PM Age: 50 yrs Gender: Male Patient Location: [facility] Reason For Study: Fever Ordering Physician: DANIS [...] 14.9 Medial E/e': 15.5 Report approved by: Arnaldo Day 0 12/17/2015 04:30 PM Procedure Note Jocelynn Real MD - 12/17/2015Formatti ng of this note might be different from the original. Interpretation Summary [facility] Echocardiography Laboratory [address] [facility] [place] [address] Name: JULIO CESAR SANDHU : 1965 Study Date: 12/17/2015 03:03 PM Age: 50 yrs Gender: Male Patient Location: [facility] Reason For Study: Fever Ordering Physician: DANIS [...] ECHO ORDERABLES Lactic Acid (12/17/2015 3:02 PM PREP ROOM SUPERVISOR) P athologist Signature Lactic Acid 1.2 0.4 - 2.0 [facility] mmol/L [facility] Specimen Anatomical Collection Method Collection Time Receive d Time (Source) Location / / Volume Laterality Blood specimen 12/17/2015 3:02 PM 016 3:10 (specimen) PREP ROOM SUPERVISOR PM PREP ROOM SUPERVISOR Danis Kim MD LAB - BLOOD ORDERABLES Performing Organization Address City/State/ZIP Code Phon e Number [facility] [address] [address] [facility] [address] [address], [place] [phone] Blood culture (12/17/2015 3:02 PM PREP ROOM SUPERVISOR) Patholo gist Method Time Signature Specimen Blood Right [place] Description Hand [facility] Special Aerobic and [place] Requests anaerobic [facility] received Culture Micro No growth [facility] Micro Report FINAL [facility] 12/23/2015 [facility] Specimen Anatomical Collection Method Collection Time Receive d Time (Source) Location / / Volume Laterality Blood specimen 12/17/2015 3:02 PM 016 5:49 (specimen) PREP ROOM SUPERVISOR PM PREP ROOM SUPERVISOR Danis Kim MD LAB - MICRO GENERAL ORDERAB LES Performing Organization Address City/State/ZIP Code Phon e Number [facility] [address] [place] [address] [facility] [address] [place] [address], [place] [phone] Blood culture (12/17/2015 2:48 PM PREP ROOM SUPERVISOR) [facility] gist Method Time Signature Specimen Blood Left [facility] Description [facility] Special Aerobic and [place] Requests anaerobic [facility] received Culture Micro No growth [facility] Micro Report FINAL [facility] 12/23/2015 [facility] Specimen Anatomical Collection Method Collection Time Receive d Time (Source) Location / / Volume Laterality Blood specimen 12/17/2015 2:48 PM 016 3:14 (specimen) PREP ROOM SUPERVISOR PM PREP ROOM SUPERVISOR Danis Kmi MD LAB - MICRO GENERAL ORDERAB LES Performing Organization Address City/State/ZIP Code Phon e Number [facility] [address] [place] [address] [facility] [address] [place] [address], [place] [phone] (ABNORMAL) INR (12/17/2015 8:12 AM PREP ROOM SUPERVISOR) P athologist Signature INR 3.56 (H) 0.86 - 1.14 [facility] Specimen Anatomical Collection Method Collection Time Receive d Time (Source) Location / / Volume Laterality Blood specimen 12/17/2015 8:12 AM 016 8:23 (specimen) PREP ROOM SUPERVISOR AM PREP ROOM SUPERVISOR Vi Rocha MD LAB - BLOOD ORDERABLES Performing Organization Address City/State/ZIP Code Phon e Number [facility] [address] [place] [address] [phone] [facility] [address] [place] [address], [place] [phone] (ABNORMAL) CBC with platelets differential (12/17/2015 8:12 AM PREP ROOM SUPERVISOR) Patholo gist Method Time Signature WBC 9.3 4.0 - [facility] 11.0 [facility] 10e9/[facility] RBC Count 3.72 (L) 4.4 - 5.9 [place] 10e12/L [facility] Hemoglobin 9.4 (L) 13.3 - [facility] 17.7 g/dL [facility] Hematocrit 30.2 (L) 40.0 - [place] 53.0 % [facility] MCV 81 78 - 100 [place] fl [facility] MCH 25.3 (L) 26.5 - [place] 33.0 pg [facility] MCHC 31.1 (L) 31.5 - [place] 36.5 g/dL [facility] RDW 17.8 (H) 10.0 - [place] 15.0 % [facility] Platelet Count 113 (L) 150 - [address] Diff Method Automated [place] Method [facility] % Neutrophils 86.6 % [facility] % Lymphocytes 3.4 % [facility] % Monocytes 8.8 % [facility] % Eosinophils 0.8 % [facility] % Basophils 0.1 % [facility] % Immature 0.3 % [place] Granulocytes [facility] Nucleated RBCs 0 0 /100 [facility] Absolute 8.1 1.6 - 8.3 [place] Neutrophil 10e9/[facility] Absolute 0.3 (L) 0.8 - 5.3 [place] Lymphocytes 10e9/[facility] Absolute 0.8 0.0 - 1.3 [place] Monocytes 10e9/[facility] Absolute 0.1 0.0 - 0.7 [place] Eosinophils 10e9/[facility] Absolute 0.0 0.0 - 0.2 [place] Basophils 10e9[facility] Abs Immature 0.0 0 - 0.4 [place] Granulocytes [address] [place] [address] Absolute 0.0 [place] Nucleated RBC [facility] Specimen Anatomical Collection Method Collection Time Receive d Time (Source) Location / / Volume Laterality Blood specimen 12/17/2015 8:12 AM 016 8:23 (specimen) PREP ROOM SUPERVISOR AM PREP ROOM SUPERVISOR Enrike Navarro MD LAB - BLOOD ORDERABLES Performing Organization Address City/State/ZIP Code Phon e Number [facility] [address] [place] [address] [phone] [facility] [address] [place] [address], [place] [phone] (ABNORMAL) Basic metabolic panel (12/17/2015 8:12 AM PREP ROOM SUPERVISOR) Analysis Performed At Patho logist Time Signature Sodium 129 (L) 133 - 144 [place] mmol/L [facility] Potassium 4.0 3.4 - 5.3 [place] mmol/L [facility] Chloride 92 (L) 94 - 109 [place] mmol/L [facility] Carbon Dioxide 27 20 - 32 [place] mmol/L [facility] Anion Gap 10 3 - 14 [place] mmol/L [facility] Glucose 179 (H) 70 - 99 [place] mg/dL [facility] Urea Nitrogen 47 (H) 7 - 30 [place] mg/dL [facility] Creatinine 9.43 (H) 0.66 - [place] 1.25 mg/dL [facility] GFR Estimate 6 (L) >60 [place] mL/min/1.[address] Comment: Non GFR Calc GFR Estimate If Black 7 (L) >60 mL/min/1.7m2 [facility] Comment: GFR Calc Calcium 8.0 (L) 8.5 - 10.1 mg/dL [facility] Specimen Anatomical Collection Method Collection Time Receive d Time (Source) Location / / Volume Laterality Blood specimen 12/17/2015 8:12 AM 016 8:23 (specimen) PREP ROOM SUPERVISOR AM PREP ROOM SUPERVISOR Enrike Navarro MD LAB - BLOOD ORDERABLES Performing Organization Address City/State/ZIP Code Phon e Number [facility] [address] [address] [facility] [address] [place] [address], [place] [phone] Vancomycin level (12/16/2015 8:15 PM PREP ROOM SUPERVISOR) P athologist Signature Vancomycin 18.5 mg/L [facility] Comment: Traditional Dosing therapeutic Range: ?Trough 8-20 mg/L ?Peak 20-50 mg/L Specimen Anatomical Collection Method Collection Time Receive d Time (Source) Location / / Volume Laterality Blood specimen 12/16/2015 8:15 PM 016 8:31 (specimen) PREP ROOM SUPERVISOR PM PREP ROOM SUPERVISOR Ariana Suazo PharmD LAB - BLOOD ORDERABLES Performing Organization Address City/[facility]/ZIP Code Phon e Number [facility] [address] [address] [facility] [address] [place] [address], [facility] [phone] Blood culture ONE site (12/16/2015 5:14 PM PREP ROOM SUPERVISOR) [employer] Method Time Signature Specimen Blood [facility] Right Arm [facility] Culture Micro No growth INFECTIOUS DISEASE [facility] LAB[facility] Micro Report FINAL INFECTIOUS Status 12/22/2015 DISEASE [facility] Specimen Anatomical Collection Method Collection Time Receive d Time (Source) Location / / Volume Laterality Blood specimen STRUCTURE OF RIGHT 12/16/2015 5:14 PM 0 12/16/2015 5:22 (specimen) UPPER LIMB / PREP ROOM SUPERVISOR PM PREP ROOM SUPERVISOR Unknown Georgia Perez MD LAB - MICRO GENERAL ORDER NADIA Performing Organization Address City/[facility]/ZIP [facility] Phon e Number INFECTIOUS DISEASES [address] [place] [address] DIAGNOSTIC LABORATORY, [phone] [place] [address] INFECTIOUS DISEASE [address] [place], [place] [phone] [place] [address] DIAGNOSTIC LABORATORY Influenza A/B antigen (12/16/2015 4:48 PM PREP ROOM SUPERVISOR) [employer] Method Time Signature Influenza A/B Nares [facility] Agn Specimen [facility] [place] Influenza A Negative NEG [facility] Test results must be correlated with clinical data. If ne cessary, results [facility] should be confirmed by a molecular assay or viral culture. [place] Influenza B Negative NEG [facility] Test results must be correlated with clinical data. If ne cessary, results [facility] should be confirmed by a molecular assay or viral culture. [place] Specimen (Source) Anatomical Collection Method Collection Time Re ceived Time Location / / Volume Laterality Specimen from NASAL STRUCTURE / 12/16/2015 4:48 2015 nasopharyngeal Unknown PM PREP ROOM SUPERVISOR 4:58 PM PREP ROOM SUPERVISOR structure (specimen) Georgia Perez MD LAB - MICRO GENERAL ORDER NADIA Performing Organization Address City/State/ZIP Code Phon e Number [facility] [place] [address], [address] XR Chest 2 Views (12/16/2015 3:19 PM PREP ROOM SUPERVISOR) Anatomical Region Laterality Modality Chest Computed Radiography Specimen (Source) Anatomical Location Collection Method / Collectio n Time Received Time / Laterality Volume Impressions 12/16/2015 3:41 PM PREP ROOM SUPERVISOR IMPRESSION: Negative. SHAHID BRANTLEY MD Narrative 12/16/2015 3:41 PM PREP ROOM SUPERVISOR XR CHEST 2 VW 12/16/2015 3:41 PM HISTORY: Chest Pain, Shortness of Breath ? Procedure Note Shahid Brantley MD - 12/16/2015Formatt ing of this note might be different from the original. XR CHEST 2 VW 12/16/2015 3:41 PM HISTORY: Chest Pain, Shortness of Breath IMPRESSION: Negative. SHAHID BRANTLEY MD Georgia Perez MD IMG DIAGNOSTIC IMAGING OR DERABLES Procalcitonin (12/16/2015 3:01 PM PREP ROOM SUPERVISOR) P athologist Signature Procalcitonin 0.81 ng/ml [facility] Comment: 0.50-1.99 ng/ml ??Moderate risk of [...] Volume Laterality 12/16/2015 3:01 PM 6 3:10 PREP ROOM SUPERVISOR PM PREP ROOM SUPERVISOR Georgia Perez MD LAB - BLOOD ORDERABLES Performing Organization Address City/State/ZIP Code Phon e Number [facility] [address] [place] [address] [phone] [facility] [address] [place] [address], [place] [phone] (ABNORMAL) INR (12/16/2015 3:01 PM PREP ROOM SUPERVISOR) P athologist Signature INR 3.71 (H) 0.86 - 1.14 [facility] Specimen Anatomical Collection Method Collection Time Receive d Time (Source) Location / / Volume Laterality Blood specimen 12/16/2015 3:01 PM 016 3:10 (specimen) PREP ROOM SUPERVISOR PM PREP ROOM SUPERVISOR Georgia Perez MD LAB - BLOOD ORDERABLES Performing Organization Address City/State/ZIP Code Phon e Number [facility] [address] [place] [address] [facility] [address] [place] [address], [place] [phone] Lipase (12/16/2015 3:01 PM PREP ROOM SUPERVISOR) P athologist Signature Lipase 154 73 - 393 [place] U/L [facility] Specimen Anatomical Collection Method Collection Time Receive d Time (Source) Location / / Volume Laterality Blood specimen 12/16/2015 3:01 PM 016 3:10 (specimen) PREP ROOM SUPERVISOR PM PREP ROOM SUPERVISOR Georgia Perez MD LAB - BLOOD ORDERABLES Performing Organization Address City/State/ZIP Code Phon e Number [facility] [address] [place] [address] [phone] [facility] [address] [place] [address], [place] [phone] (ABNORMAL) Comprehensive metabolic panel (12/16/2015 3:01 PM PREP ROOM SUPERVISOR) Analysis Performed At Patho logist Time Signature Sodium 131 (L) 133 - 144 [place] mmol/L [facility] Potassium 3.3 (L) 3.4 - 5.3 [place] mmol/L [facility] Chloride 93 (L) 94 - 109 [place] mmol/L [facility] Carbon Dioxide 29 20 - 32 [place] mmol/L [facility] Anion Gap 9 3 - 14 [place] mmol/L [facility] Glucose 97 70 - 99 [place] mg/dL [facility] Urea Nitrogen 25 7 - 30 [place] mg/dL [facility] Creatinine 6.94 (H) 0.66 - [place] 1.25 mg/dL [facility] GFR Estimate 8 (L) >60 [place] mL/min/1.[address] Comment: Non GFR Calc GFR Estimate If Black 10 (L) >60 mL/min/1.7m2 [facility] Comment: GFR Calc Calcium 7.8 (L) 8.5 - 10.1 mg/dL [facility] Bilirubin Total 0.6 0.2 - 1.3 mg/dL [facility] Albumin 3.5 3.4 - 5.0 g/dL [facility] Protein Total 7.5 6.8 - 8.8 g/dL [facility] Alkaline Phosphatase 139 40 - 150 U/L [facility] ALT 16 0 - 70 U/L [facility] AST 17 0 - 45 U/L [facility] Specimen Anatomical Collection Method Collection Time Receive d Time (Source) Location / / Volume Laterality Blood specimen 12/16/2015 3:01 PM 016 3:10 (specimen) PREP ROOM SUPERVISOR PM PREP ROOM SUPERVISOR Georgia Perez MD LAB - BLOOD ORDERABLES Performing Organization Address City/State/ZIP Code Phon e Number [facility] [address] [address] [facility] [address] [address], U [phone] (ABNORMAL) CBC with platelets differential (12/16/2015 3:01 PM PREP ROOM SUPERVISOR) [facility] gist Method Time Signature WBC 8.9 4.0 - [facility] 11.0 [facility] 10e9/L [facility] RBC Count 3.93 (L) 4.4 - 5.9 [facility] 10e12/L [facility] Hemoglobin 10.1 (L) 13.3 - [place] 17.7 g/dL [facility] Hematocrit 31.8 (L) 40.0 - [place] 53.0 % [facility] MCV 81 78 - 100 [place] fl [facility] MCH 25.7 (L) 26.5 - [place] 33.0 pg [facility] MCHC 31.8 31.5 - [place] 36.5 g/dL [facility] RDW 17.6 (H) 10.0 - [place] 15.0 % [facility] Platelet Count 118 (L) 150 - 450 [place] [id number] Diff Method Automated [facility] % Neutrophils 87.8 % [facility] % Lymphocytes 3.4 % [facility] % Monocytes 8.4 % [facility] % Eosinophils 0.1 % [facility] % Basophils 0.1 % [facility] % Immature 0.2 % [place] Granulocytes [facility] Nucleated RBCs 0 0 /100 [facility] Absolute 7.8 1.6 - 8.3 [place] Neutrophil 10e9/[facility] Absolute 0.3 (L) 0.8 - 5.3 [place] Lymphocytes 10e9[facility] Absolute 0.7 0.0 - 1.3 [place] Monocytes 10e9/[facility] Absolute 0.0 0.0 - 0.7 [place] Eosinophils 10e9/[facility] Absolute 0.0 0.0 - 0.2 [place] Basophils 10e9/[facility] Abs Immature 0.0 0 - 0.4 [place] Granulocytes [address] Absolute 0.0 [place] Nucleated RBC [facility] Specimen Anatomical Collection Method Collection Time Receive d Time (Source) Location / / Volume Laterality Blood specimen 12/16/2015 3:01 PM 016 3:10 (specimen) PREP ROOM SUPERVISOR PM PREP ROOM SUPERVISOR Georgia Perez MD LAB - BLOOD ORDERABLES Performing Organization Address City/State/ZIP Code Phon e Number [facility] [address] [address] [phone] [facility] [address] [place] [address], [place] [phone] EKG 12-lead, tracing only (12/16/2015 2:48 PM PREP ROOM SUPERVISOR) [facility] Method Time Signature Interpretation ECG Click View RADIOLOGY Image link RESULTS to view waveform and result Specimen (Source) Anatomical Collection Method Collection Time Re ceived Time Location / / Volume Laterality 12/16/2015 2:48 PM PREP ROOM SUPERVISOR Georgia Perez MD ECG ORDERABLES Performing Organization Address City/State/ZIP Code Phon e Number RADIOLOGY RESULTS Blood culture (12/16/2015 7:30 AM PREP ROOM SUPERVISOR) [facility] Method Time Signature Specimen Blood [facility] Culture Micro Canceled, [facility] Test credited [facility] request [id number] Micro Report FINAL [place] Status 12/18/2015 [facility] Specimen Anatomical Collection Method Collection Time Receive d Time (Source) Location / / Volume Laterality Blood specimen 12/16/2015 7:30 AM 016 7:54 (specimen) PREP ROOM SUPERVISOR AM PREP ROOM SUPERVISOR Danis Kim MD LAB - MICRO GENERAL ORDERAB LES Performing Organization Address City/State/ZIP Code Phon e Number [facility] [address] [place] [address] [facility] [address] [place] [address], [place] [phone] Blood culture (12/16/2015 7:30 AM PREP ROOM SUPERVISOR) [facility] Method Time Signature Specimen Blood [facility] Culture Micro Canceled, [facility] Test credited [facility] request [id number] Micro Report FINAL [facility] Status 12/18/2015 [facility] Specimen Anatomical Collection Method Collection Time Receive d Time (Source) Location / / Volume Laterality Blood specimen 12/16/2015 7:30 AM 016 7:53 (specimen) PREP ROOM SUPERVISOR AM PREP ROOM SUPERVISOR Danis Kim MD LAB - MICRO GENERAL ORDERAB LES Performing Organization Address City/State/ZIP Code Phon e Number [facility] [address] [place] [address] [phone] [facility] [address] [address], [facility] [phone] documented in this encounter Visit Diagnoses Not on filedocumented in this encounter Administered Medications Inactive Administered Medications - up to 3 most recent administrations Medication Order MAR Action Action Date Dose Rate Site ceFAZolin 1000 mg + Given 12/19/2015 5:59 1,000 mLs Operative gentamicin 120 mg + PM PREP ROOM SUPERVISOR Site/ Surgical Site NaCl 0.9% 1000 mL Bag PRN, Starting on Tue12/19/15 at 1759, Intra-procedure ceFAZolin 1000 mg + Given 12/19/2015 5:59 PM 1,000 mLs Operative gentamicin 120 mg + NaCl PREP ROOM SUPERVISOR Site/Surgical Site 0.9% 1000 mL Bottle PRN, Starting on Tue12/19/15 at 1759, Intra-procedure documented in this encounter Active and Recently Administered Medications Due to Daylight Saving Time, this section may contain times in both PREP ROOM SUPERVISOR and CDT. Scheduled Medication Order 12/20/2015 12/21/2015 [...] USER SPECIFIED (Once per da y on Tue), First dose on Tue12/24/15 at 0800, Hold for SBP < 100 amLODIPine (NORVASC) tablet 5 mg (CANCELED) 730 (Given - Provider: Katja Velazquez, LINDA) 0822 (Given - Provider: Bárbara Trevino) 5 mg, Oral, USER SPECIFIED (Once per day on Tue), First dose on Tue12/19/15 at 1000, Hold for SBP < 100 B uhcdkrb-F-qccri acid (NEPHROCAPS) capsule 1 mg (CANC ELED) 165 (Given - Provider: Caitlyn Sherwood, LINDA) 1746 (Given - Provider: Katja agarwal RN) 1 mg (1 capsule), Oral, DAILY WITH SUPPER, First dose on 12/15 at 1845 calcium acetate (PHOSLO) capsule 1,334 mg (CANCELED) 0 900 (Not Given - Provider: Rachel Flores RN - Reason: Patient not available - Comment: Pt in dialysis)1235 (Given - Provider: Rachel Flores RN)1655 (Given - Provider: Caitlyn Sherwood, LINDA) 0730 (Given - Provider: Katja agarwal RN)0900 (Canceled Entry - Provider: Katja Velazquez RN)1149 (Given - Provider: Katja Velazquez, LINDA)1746 (Given - Provider: Katja Velazquez RN) 0823 (Given - Provider: Bárbara Loop)1115 (Given - Provider: Marisol Pabon RN) 1,334 mg, Oral, 3 TIMES DAILY WITH MEALS, First dose on Tue at 1845 CeFAZolin (ANCEF) intermittent infusion 2 g (COMPLETED) 133 (Given - Provider: Bárbara Trevino) 2 g, Intravenous, ONCE, Tue12/22/15 at 1 230, For 1 dose, Indications: Bacteremia cefTRIAXone (ROCEPHIN) 1 g vial to attac h to NS 100 ml bag or NS 50 ml bag for PEDS (CANCELED) 2032 (New Bag - Provider: Caitlyn Sherwood RN) 174 (New Bag - Provider: Katja Velazquez, LINDA) 1 g, Intravenous, EVERY 24 HOURS, First [...] Units (COMPLETED) 0835 (Given - Provider: Benjie Wallis, RN, RN) 500 Units, Hemodialysis Machine, ONCE [...] met) 0806 (Not Given - Provider: Bárbara rTevino - Reason: Order parameters not met)1113 (Given - Provider: Marisol Paobn RN) 1-7 Units, Subcutaneous, 3 TIMES DAILY [...] of correction dose. If given at mealti me, must be administered 5 min before meal or immediately after. lisinopril (PRINIVIL,ZESTRIL) tablet 20 mg (CANCELED) 0731 (Given - Provider: Katja Velazquez RN)0900 (Canceled Entry - Provider: Katja Velazquez RN) 0822 (Given - Provider: Bárbara Loop) 20 mg, Oral, USER SPECIFIED (Once per da y on Tue), First dose on Tue12/17/15 at 0900, On non-dialysis days metoprolol (LOPRESSOR) tablet 100 mg (CANCELED) 730 (Given - Provider: Katja Velazquez RN)09 (Canceled Entry - Provider: Katja Velazquez RN)210 (Given - Provider: Jennifer Jacob, LINDA) 0822 (Given - Provider: Bárbara Loop) 100 mg, Oral, USER SPECIFIED (2 times pe r day on Tue), First dose on Tue12/17/15 at 0900, For Adults, Hold if HR < 60 or SBP<100. On non-dialysis days simvastatin (ZOCOR) tablet 40 mg (CANCELED) 2032 (Give n - Provider: Caitlyn Sherwood RN) 2102 (Given - Provider: Jennifer Jacob RN) 40 mg, Oral, EVERY EVENING, First dose on Tue12/16/15 at 2000 sodium chloride (PF) 0.9% PF flush 3 mL (CANCELED) 120 5 (Not Given - Provider: Rachel Flores RN - Reason: Patient not available)1604 (Given - Provider: Caitlyn Sherwood RN) 0101 (Given - Provider: Tena Santamaria RN)0 735 (Given - Provider: Katja Velazquez RN)1745 (Given - Provider: Katja Velazquez RN)2344 (Not Given - Provider: Jennifer Jacob RN - Reason: Patient sleeping) 0822 (Given - Provider: Bárbara Loop) 3 mL, Intravenous, EVERY 8 HOURS, First dose on Tue12/19/15 at 1545, And Q1H PRN, to lock peripheral IV dormant line. vancomycin (VANCOCIN) 1500 mg in 0.9% NaCl 250 mL RICHARD IX (COMPLETED) 1603 (New Bag - Provider: Caitlyn Sherwood RN) 1,500 mg, Intravenous, ONCE, 12/20/15 at 1500, For 1 dose, For an adult with peripheral catheter and dose of 2-2.5 g, infuse over 2 hours. IF central catheter, doses below 2 g may be given over 1 hour., Indications: Sepsis warfarin (COUMADIN) tablet 5 mg (COMPLETED) 1210 (Given - Provider: Katja Velazquez, RN) 5 mg, Oral, ONCE AT 6PM, 12/21/15 at 1800, For 1 dose Continuous Medication Order 12/20/2015 12/21/2015 12/22/2015 heparin 10,000 units/10 mL infusion (DIALYSIS USE) (CA NCELED) 0835 (New Bag - Provider: Benjie Wallis, RN, RN) 500 Units/hr (0.5 mL/hr), Hemodialysis M [...] 1834 documented in this encounter Care Teams Chain Pegger Relationship Specialty Start Date End Date Cornell Butt PCP - General 06/24/11 documented as of this encounter
--- OUTSIDE RECORDS SUMMARY | 2022-09-01 20:17 | XMS_ITS | Encounter Summary ---
:1965 Author Organization [facility] Address [address] [place] [address] Care Team Providers Name Role Phone Preet Huff Primary Care Provider Reason for Visit Reason Onset Date Comments Post-Op - Vascular 11/11/2015 Encounter Details Date Type Department Care Team Description 11/11/2015 Telephone [facility] Jaxon Saravia Post-Op - Vascular [facility] [place] MD [id number] [place] [id number] [address] [place] [id number] (Wo rk) Social History Tobacco Use Types Packs/Day Years Used Date Smoking Tobacco: Never Smokeless Tobacco: Never Alcohol Use Standard Drinks/Week Comments No 0 (1 standard drink = 0.6 oz pure alcoho l) Sex Assigned at Date Recorded Not on file documented as of this encounter Miscellaneous Notes Telephone Encounter - Jaxon Saravia MD - 11/11/2015 4:55 PM HASH SLINGER I spoke with Herminio Victor dialysis nurse Teo today. 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 There are report that the pseudoaneurysm measured approximately 2 cm in diameter and felt that the swelling was much larger than this. We did perform a duplex of the ProCol dialysis graft last week when I was out of town and the patient was seen by my associate Dr Smith. 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 However, the other aneurysm is much larger and extends from approximately the 5:00 toe 8:00 position with Thrombus compressing the graft at the 8:00 position. The rest of the pseudoaneurysm is patent and has a diameter of at least 5-6 cm on the ultrasound. This seems to be more consistent with the clinical findings by the dialysis nurses. The overlying skin is intact. [place] to the hospital was not feasible over the next 48 hours. He is scheduled undergo surgical repair this coming week. We will stop his Coumadin. He will be seen on dialysis on 11/13/2015 and if they feel that the pseudoaneurysm is now larger patient will be transported to the hospital to be cared for by my associate since I will be out of town that day. The chance of a free rupture is very unlikely with the intact [place] and this was discussed. However, the Pseudoaneurysm may be enlarging scissors partial compression on the outflow portion ofthe graft by the thrombosed segment. We plan to evacuate the hematoma and either primarily repair the defect in the graft which has a caliber between 7-9 mm or consider a patch angioplasty or interposition graft. He has a right femoral tunneled catheter due to lack of upper extremity venous access which is still functioning well and will need to be used for at least four weeks following the surgery to allow healing to occur. This is especially important since the pseudoaneurysm developed on the first attempt to use the newly revised graft several weeks ago. If the graft is occluded with the cessation of the Coumadin and the outflow extrinsic compression it still should be salvageable with thrombectomy but this would need to be done interoperatively as one repairs the pseudoaneurysm. An interventional technique is not feasible in his situation. Jaxon Saravia MD SLINGER documented in this encounter Plan of Treatment Not on filedocumented as of this encounter Visit Diagnoses Not on filedocumented in this encounter Care Teams Directory Compiler Relationship Specialty Start Date End Date Preet Huff PCP - General 06/24/11 documented as of this encounter
--- OUTSIDE RECORDS SUMMARY | 2022-09-01 20:17 | XMS_ITS | Encounter Summary ---
:1965 Author Organization [facility] Address [address] [place] [address] Care Team Providers Name Role Phone Preet Huff Primary Care Provider Reason for Visit Auth/Cert Specialty Diagnoses / Procedures Referred By Contact Refer red To Contact Surgery Diagnoses PSEUDOANEURYSM OF LEFT THIGH ARTERIOVENOUS FISTULA Sh Periop Services Procedures REVISION FISTULA ARTERIOVENOUS LOWER EXTREMITY [address] [place] [phone] Phone: Referral ID Status Reason Start Date Expiration Date Visits Requ ested Visits Authorized [id number] 1 1 Encounter Details Date Type Department Care Team Description [facility] Clotted renal 11/21/2015 Encounter Ariane Oviedo MD dialysis Intermediate Care [address] arteriovenous graft, [address] subsequent encounter [place] [id number] [place] [id number] (Primary Dx) [phone] Social History Tobacco Use Types Packs/Day Years Used Date Smoking Tobacco: Never Smokeless Tobacco: Never Alcohol Use Standard Drinks/Week Comments No 0 (1 standard drink = 0.6 oz pure alcoho l) Sex Assigned at Date Recorded Not on file documented as of this encounter Last Filed Vital Signs Vital Sign Reading Time Taken Comments Blood Pressure 150/78 11/21/2015 7:10 AM TESTER OPERATOR HELPER Pulse 76 11/20/2015 11:34 PM TESTER OPERATOR HELPER Temperature 36.9 ??C (98.4 ??F) 11/21/2015 7:10 AM TESTER OPERATOR HELPER Respiratory Rate 16 11/21/2015 7:10 AM TESTER OPERATOR HELPER Oxygen Saturation 100% 11/21/2015 7:10 AM TESTER OPERATOR HELPER Inhaled Oxygen Concentration - - Weight 87 kg (191 lb 12.8 oz) 11/21/2015 5:00 AM TESTER OPERATOR HELPER Be d wt Height 162.6 cm (5' 4) 11/19/2015 12:49 PM TESTER OPERATOR HELPER Body Mass Index 32.92 11/19/2015 12:49 PM TESTER OPERATOR HELPER documented in this encounter Discharge Summaries Rober Saravia MD - 11/21/2015 7:50 AM CST [facility] Discharge Summary Jluio Cesar Sandhu Date of : 1965 Age: [age] year old Date of Admission: 11/19/2015 Date of Discharge: 11/21/2015 Admitting Physician: Rober Saravia MD Discharge Physician: Rober Saravia MD Discharging Service: Vascular Surgery Primary Provider: Preet Huff Primary Care Physician Discharge Diagnoses/Problem Oriented Hospital Course (Providers): Julio Cesar Sandhu was admitted on 11/19/2015 by Rober Saravia MD and I would refer you to their history and physical. The following problems were addressed during his hospitalization: Clotted L thigh dialysis graft and pseudoaneurysm/perigraft hematoma, s/p evacuation of hematoma andligation of graft. Inflow and outflow obstruction seen on intraoperative fistulogram. Coumadin was restarted. RLE dialysis catheter was replaced. Patient dialyzed on 11/20/15 with good flows. Code Status: Full Code Brief Hospital Stay Summary Sent Home With Patient in AVS: Reason for your hospital stay You were in the hospital for surgery on your dialysis graft. This was ligated. You also had your dialysis catheter replaced and it is now working well for dialysis. We will need to replace your dialysis graft once the left thigh heals. Important Results: 11/21/15 INR 1.09 Pending Results: Unresulted Labs Ordered in the Past 30 Days of this Admission No orders found from 09/21/2015 to 11/20/2015. Discharge Instructions and Follow-Up: Discharge Disposition: Discharged to home Discharge Medications: Current Discharge Medication List START taking these medications Details oxyCODONE (ROXICODONE) 5 MG immediate release tablet Take 1 tablet (5 mg) by mouth every 4 hours as needed for moderate to severe pain Qty: 30 tablet, Refills: 0 Associated Diagnoses: Clotted renal dialysis arteriovenous graft, subsequent encounter CONTINUE these medications which have NOT CHANGED Details vitamin B complex with vitamin C (VITAMIN B COMPLEX) TABS Take 1 tablet by mouth every evening Calcium Acetate, Phos Binder, (CALCIUM ACETATE PO) Take 1,334 mg by mouth 4 times daily (with meals and nightly) Takes with meals and snacks (2 x 667mg tablet) LISINOPRIL PO Take 20 mg by mouth See Admin Instructions Take on , , , [place] (Non-dialysis days only) bisacodyl (DULCOLAX) 5 MG EC tablet Take 10 mg by mouth See Admin Instructions Take on , , , [place] (Non-dialysis days only) Cholecalciferol (VITAMIN D3 PO) Take 2,000 Units by mouth daily Metoprolol Tartrate (LOPRESSOR PO) Take 100 mg by mouth 2 times daily In the AM and at Noon. Takes on , , , [place] (Non-dialysis days only) warfarin (COUMADIN) 5 MG tablet Take 0.5 tablets by mouth daily. Qty: 90 tablet, Refills: 1 Associated Diagnoses: Renal dialysis device, implant, or graft complication b xvuwkcx-T-uxjic acid (NEPHROCAPS) 1 MG capsule Take 1 capsule by mouth daily (with dinner) simvastatin (ZOCOR) 40 MG tablet Take 40 mg by mouth every evening Allergies: Allergies Allergen Reactions ??? Aspirin [Dihydroxyaluminum Aminoacetate] GI Disturbance GI bleeding Consultations This Hospital Stay: Consultation during this admission received from nephrology Condition and Physical on Discharge: Discharge condition: Stable Vitals: Heart Rate: 70, Blood pressure 150/78, pulse 76, temperature 98.4 ??F (36.9 ??C), temperature source Oral, resp. rate 16, height 1.626 m (5' 4), weight 87 kg (191 lb 12.8 oz), SpO2 100 %. Constitutional: Alert, no distress, oriented Lungs: Breathing comfortably Cardiovascular: RRR Abdomen: Soft, nondistended, nontender Skin: Left thigh incision covered with steri strips and c/d/i, BRITT drain w/ scant output and was removed prior to discharge Other: Discharge Time: 30 minutes. Image Results From This Hospital Stay (For Non-[facility] Providers): Results for orders placed or performed during the hospital encounter of 11/19/15 XR Surgery NIHARIKA L/T 5 Min Fluoro w Stills Narrative This Impression exam was marked as non-reportable because it will not be read by a radiologist or a [facility] non-radiologist provider. IR CVC Tunnel Revision Right Narrative INTERVENTIONAL RADIOLOGY CVC TUNNEL REVISION RIGHT 11/20/2015 8:28 AM HISTORY: 50-year-old male undergoing fistula revision with a right femoral tunneled dialysis catheter in place which has been functioning poorly. The patient requires continued temporary dialysis through the catheter until the fistula can be utilized. Request is for catheter dialysis revision. FINDINGS: The procedure was explained to the patient in detail and informed consent was obtained. Maximal Sterile Barrier Technique Utilized: Cap AND mask AND sterile gown AND sterile gloves AND sterile full body drape AND hand hygiene AND skin preparation 2% chlorhexidine for cutaneous antisepsis (or acceptable alternative antiseptics). The patient was prepped and draped and 1% lidocaine was used as local anesthetic. Clot was aspirated from both ports of the existing catheter. Following aspiration, both ports appear to function freely; however, the catheter was revised. A wire was placed and the catheter was removed. Over the wire, an [employer] Duraflow 15 [place] 31 cm tip to cuff dialysis catheter was advanced over a wire into the mid inferior vena cava. The catheter was sutured in place. Both ports of the catheter were aspirated and flushed and demonstrated good function and were subsequently heparin locked. A permanent fluoroscopic image was obtained documenting the tip of the catheter in the mid inferior vena cava. There were no immediate complications. Fluoroscopy time 0.2 minutes Antibiotic 2 g IV Ancef Local anesthetic 10 mL 1% lidocaine Contrast 20 mL of Isovue Conscious sedation 1 mg IV Versed, 50 ? IV fentanyl Sedation time 30 minutes. The patient was monitored by radiology nursing staff under my supervision and remained stable throughout the study. Impression IMPRESSION: The existing right femoral tunneled dialysis catheter was occluded with thrombus within both ports. The catheter was removed over a wire and replaced with a Duraflow 15 [place] 31 cm tip to cuff dialysis catheter which was placed in the inferior vena cava. TEJAS KLEIN MD Most Recent Lab Results In [facility] (For Non-EPIC Providers): Most Recent 3 CBC's: Recent Labs Lab Test 11/20/15 1130 11/19/15 1233 11/06/15 1249 WBC 4.7 3.1* 3.0* HGB 9.0* 9.5* 9.7* MCV 80 80 80 PLT 140* 148* 85* Most Recent 3 BMP's: Recent Labs Lab Test 11/21/15 0709 11/20/15 1130 11/19/15 1233 11/06/15 1249 NA -- 132* 131* 129* POTASSIUM -- 4.9 3.9 3.0* CHLORIDE -- 97 95 92* CO2 -- 26 25 30 BUN -- 52* 40* 23 CR -- 11.80* 10.00* 5.94* ANIONGAP -- 9 11 7 JON -- 7.9* 8.8 7.9* GLC 92 133* 82 107* Most Recent 3 Troponin's:No lab results found. Invalid input(s): TROP, TROPONINIES Most Recent 3 INR's: Recent Labs Lab Test 11/21/15 0709 11/20/15 1130 11/19/15 1233 INR 1.09 1.10 1.05 Most Recent 2 LFT's:No lab results found. Most Recent Cholesterol Panel:No lab results found. Most Recent 6 Bacteria Isolates From Any Culture (See EPIC Reports for Culture Details): Recent Labs Lab Test 08/17/15 0814 08/16/15 0913 08/15/15 0345 08/14/15 0340 08/13/15 0826 08/12/15 0814 CULT No growth No growth No growth No growth No growth No growth Most Recent TSH, T4 and HgbA1c: Recent Labs Lab Test 08/10/15 0824 A1C Below Assay Range Canceled, Test credited CALLED [facility] 66 AT 0928 Vi Rocha MD Resident Staff: Agree with above. Will plan redo left thigh access in about three weeks after thigh wound healed. Rober Saravia MD ER OPERATOR HELPER documented in this encounter Medications at Time [...] x 20mg tablet = 40mg ) b qtxhuua-M-qkuhx acid Take 1 capsule by 0 03/04/2016 (NEPHROCAPS) 1 MG mouth daily (with capsule dinner) simvastatin (ZOCOR) 40 Take 40 mg by mouth 0 12/16/2017 MG tablet every evening bisacodyl (DULCOLAX) 5 Take 10 mg by mouth 0 12/16/2017 MG EC tablet See Admin Instructions Take on Once Daily on M, W, F, [place] (Non-dialysis days only) Metoprolol Tartrate Take 200 mg by mouth 0 03/05/2016 (LOPRESSOR PO) 2 times daily In the AM and at Noon. Takes on M, W, F, [place] (Non-dialysis days only) (Takes 2 x 100mg tablet = 200mg) oxyCODONE (ROXICODONE) 5 Take 1 tablet (5 mg) 30 tablet 0 0 11/21/2015 12/16/2015 MG immediate release by mouth every 4 tabletIndications: hours as needed for Clotted renal dialysis moderate to severe arteriovenous graft, pain subsequent encounter vitamin B complex with Take 1 tablet by 0 04/25/2017 vitamin C (VITAMIN B mouth every evening COMPLEX) TABS warfarin (COUMADIN) 5 MG Take 0.5 tablets by 90 tablet 1 12/16/2015 tabletIndications: Renal mouth daily. dialysis device, implant, or graft complication documented as of this encounter Progress Notes Debra Garner RN - 11/20/2015 7:55 PM CST Vs no c/o pain, on room air, trying to have some boundaries regarding food intake and reminding patient to slow down when he eats. Had dialysis today after a fem site Was placed on the right groin . Site WDL, CMS intact. To hopefully get BRITT removed in the morning ( barely any output today) and then discharge with a ride service to his residence. Jazmín Cook RN, RN - 11/20/2015 3:38 PM CST POTASSIUM Date Value Ref Range Status 11/20/2015 4.9 3.4 - 5.3 mmol/L Final ] HGB 9.0 11/20/2015 Weight: 87 kg (191 lb 12.8 oz) DIALYSIS PROCEDURE NOTE Patient dialyzed for 3.5 hrs on a 2 K bath with a net fluid removal of 3L. A BFR of 400ml/min was obtained via new RF Tunneled with lines reversed and all connections secured. Patient was seen by during treatment. Total heparin received during treatment:: 0units. Meds given:none. Complications:none Procedure and ESRD teaching done and questions answered. See flowsheet in [facility] for further details. RO log completed Prime given: NS Saline double clamped and Arterial/Venous parameters set. Patient transported via bed to the dialysis unit Aseptic prep done for both on/off. Transducer connectors checked q15 minutes with vital sign check : Report received from: Robin Garner RN Report given to: Jhon Edgar RNquenching machine operator [facility] Hepatitis Antigen 07/13/15 Hepatitis Antibody immune ER OPERATOR HELPER Job Her MD - 11/20/2015 3:18 PM CST Inpatient Dialysis Progress Note Assessment and Plan: 1. ESRD. 2. Anemia. 3. Dysfunction L thigh AVG s/p ligation. Interval History: Pt was seen on HD treatment. Procedure is going well. No complaints. Dialysis Parameters: Filed Vitals: 11/19/15 1249 11/20/15 1300 Weight: 87.045 kg (191 lb 14.4 oz) 87 kg (191 lb 12.8 oz) I/O last 3 completed shifts: In: 1350 [P.O.:600; I.V.:750] Out: 85 [Drains:10; Blood:75] Temp: [96.4 ??F (35.8 ??C)-99 ??F (37.2 ??C)] 99 ??F (37.2 ??C) Pulse: [62-98] 73 Heart Rate: [61-73] 72 Resp: [8-18] 16 BP: (109-223)/(54-107) 141/76 mmHg SpO2: [99 %-100 %] 99 % Current Weight: 87 Dry Weight: 88 Dialysis Temp: 36.5 ??C Access Device: tunneled CVC Access Site: R femoral Dialyzer: revaclear Dialysis Bath: 2K Sodium Profile: none UF Goal: 2-3 Blood Flow Rate (mL/min): 400 Total Treatment Time (hrs): 3.45 Heparin: none Review of Systems: Medications: EPO dose: 50144 units Zemplar: none IV Fe: none Physical Exam: Vitals were reviewed Patient Vitals for the past 24 hrs: BP Temp Temp src Pulse Heart Rate Resp SpO2 Weight 11/20/15 1500 141/76 mmHg - - 73 - - - - 11/20/15 1445 109/71 mmHg - - 78 - - - - 11/20/15 1430 144/71 mmHg - - 74 - - - - 11/20/15 1415 144/54 mmHg - - 71 - - - - 11/20/15 1400 163/83 mmHg - - 75 - - - - 11/20/15 1345 160/77 mmHg - - 72 - - - - 11/20/15 1330 180/90 mmHg - - 71 - - - - 11/20/15 1310 (!) 207/91 mmHg - - 91 - - - - 11/20/15 1300 (!) 216/99 mmHg 99 ??F (37.2 ??C) Oral 98 - 16 - 87 kg (191 lb 12.8 oz) 11/20/15 1141 183/84 mmHg 98.9 ??F (37.2 ??C) Oral 71 - 16 99 % - 11/20/15 0815 172/88 mmHg - - - 72 16 99 % - 11/20/15 0809 180/88 mmHg - - - 71 16 100 % - 11/20/15 0806 181/83 mmHg - - - 71 16 100 % - 11/20/15 0803 179/85 mmHg - - - 73 16 99 % - 11/20/15 0800 172/88 mmHg - - - 72 16 99 % - 11/20/15 0401 171/79 mmHg 98.8 ??F (37.1 ??C) Oral 74 - 16 100 % - 11/20/15 0131 168/76 mmHg - - 76 - - 100 % - 11/20/15 0130 165/82 mmHg - - 72 - - 100 % - 11/20/15 0045 (!) 202/96 mmHg - - 72 - - - - 11/20/15 0044 (!) 193/94 mmHg 98.5 ??F (36.9 ??C) Oral 74 - 16 100 % - 11/19/15 2330 169/82 mmHg - - 71 - - 100 % - 11/19/15 2300 (!) 179/92 mmHg - - 67 - - - - 11/19/15 223 (!) 223/103 mmHg - - - - - - - 11/19/152201 (!) 211/107 mmHg - - 71 - - - - 11/19/152126 180/90 mmHg 98.3 ??F (36.8 ??C) Oral 63 - 16 100 % - 11/19/15 2040 191/86 mmHg 96.4 ??F (35.8 ??C) Oral 62 - 18 100 % - 11/19/15 1950 (!) 199/92 mmHg - - - 62 10 100 % - 11/19/15 1940 (!) 211/95 mmHg - - - 61 11 100 % - 11/19/15 1930 (!) 189/91 mmHg - - - 63 12 100 % - 11/19/15 1920 188/89 mmHg - - - 61 8 100 % - 11/19/15 1910 193/89 mmHg - - - 61 12 100 % - 11/19/15 1900 186/90 mmHg - - - 63 11 100 % - 11/19/15 1850 190/90 mmHg - - - 72 11 99 % - 11/19/15 1840 186/89 mmHg - - - 61 12 100 % - 11/19/15 1830 192/90 mmHg 96.8 ??F (36 ??C) Temporal - - 14 100 % - Temperatures: Current - Temp: 99 ??F (37.2 ??C); Max - Temp Av.1 ??F (36.7 ??C) Min: 96.4 ??F (35.8 ??C) Max: 99 ??F (37.2 ??C) Respiration range: Resp Av Min: 8 Max: 18 Pulse range: Pulse Av.8 Min: 62 Max: 98 Blood pressure range: Systolic (24hrs), Av mmHg, Min:109 mmHg, Max:223 mmHg ; Diastolic (24hrs), Av mmHg, Min:54 mmHg, Max:107 mmHg Pulse oximetry range: SpO2 Av.8 % Min: 99 % Max: 100 % I/O last 3 completed shifts: In: 1350 [P.O.:600; I.V.:750] Out: 85 [Drains:10; Blood:75] Intake/Output Summary (Last 24 hours) at 11/20/15 1518 Last data filed at 11/20/15 0600 Gross per 24 hour Intake 1350 ml Output 85 ml Net 1265 ml Gen: NAD CV: RRR Pulm: Ctab. Abd: soft, NT LE: no edema Data: Recent Labs Lab Test 11/20/15 1130 11/19/15 1233 NA 132* 131* POTASSIUM 4.9 3.9 CHLORIDE 97 95 CO2 26 25 ANIONGAP 9 11 GLC 133* 82 BUN 52* 40* CR 11.80* 10.00* JON 7.9* 8.8 HEMOGLOBIN Date Value Ref Range Status 11/20/2015 9.0* 13.3 - 17.7 g/dL Final Job Her MD ER OPERATOR HELPER Mindy Ochoa - 11/20/2015 1:46 PM CST [facility] Progress Note [facility] Pt was not in room when stopped; spoke with [facility] [place] confirmed [place] was in dialysis at the moment. will attempt to visit later this afternoon or tomorrow at the latest. Mindy Ochoa Automotive Services Manager Costume Specialist Pager [phone] Vi Artis MD - 11/20/2015 11:21 AM CST Vascular Surgery Update Dialysis catheter exchanged this AM Plan to dialyze today Surgical drain likely to be removed tomorrow AM Will plan to discharge tomorrow AM Will need to set up ride Start coumadin leigh ann Rocha MD Resident Pager [phone] Debra Sher, LINDA - 11/20/2015 11:05 AM CST Called consulting service to see if Nephrology had been contacted, they were paged at 0835 this morning, waiting for patient to be seen. Tejas Cisneros MD - 11/20/2015 8:14 AM CST RADIOLOGY PROCEDURE NOTE Patient name: Julio Cesar Sandhu : 1965 Pre-procedure diagnosis: Renal failure Post-procedure diagnosis: Same Procedure Date/Time: November 20, 2015 8:15 AM Procedure: Tunneled dialysis catheter revision Estimated blood loss: None Specimen(s) collected with description: None The patient tolerated the procedure well with no immediate complications. Significant findings:Clot aspirated from each port of the existing catheter with good flow after aspiration. Catheter removed and replaced with 15 fr Duraflow catheter . Tip in IVC. See imaging dictation for procedural details. Provider name: Tejas Klein Green End Worker(s):None Anusha Napoles RN - 11/20/2015 8:00 AM CST Interventional Radiology Intra-procedural Nursing Note Patient Name: Julio Cesar Sandhu Today's Date: November 20, 2015 Start Time: 0800 End of procedure time: 0815 Procedure: CVC Tunnel Placement Report given to: Kitty MCKEON @ 0829 Time pt departs: 0829 with [place] risk assessment 0-1 0800- Pt transferred to procedure table into supine position. Skin prepped with chloroprep (CHG 2%) and draped.See LDA flowsheet, MAR, VS flowhsheet for additional information. Dr. Klein notified pt ate two hours ago and creat 10.0. No new orders. 0810- Angiodynamcis Duraflow 2 [id number] hemodialysis catheter placed by Dr. Klein REF [id number] EXP 2016-10 0821- Hemastasis achieved, site covered with sterile disc and 4x4 tegaderm. No oozing, bleeding, or hematoma noted to site. Pt educated on care site and importance to lay flat until further instructed. 0829-Pt transferred to 3rd floor via stretcher. No s/s acute distress noted. On 2LNC Other Notes: Anusha Jesus RN,BSN ER OPERATOR HELPER Rober Saravia MD - 11/20/2015 7:11 AM CST Vascular Surgery Progress Note S: LLE graft pseudoaneurysm/hematoma evacuated and graft ligated yesterday. No complaints postop, eating really well. Hypertensive last night, improved overnight. O: Vitals: BP Min: 165/82 Max: 223/103 Temp Av.6 ??F (36.4 ??C) Min: 96.4 ??F (35.8 ??C) Max: 98.8 ??F (37.1 ??C) Pulse Av.2 Min: 62 Max: 76 I/O last 3 completed shifts: In: 1350 [P.O.:600; I.V.:750] Out: 85 [Drains:10; Blood:75] Physical Exam: Sleeping, awakens easily, alert, appropriate RRR Breathing comfortably Abdomen soft, nontender LLE dressing intact and clean, BRITT w/ low amount old bloody output BLE pulses intact Assessment/Plan: NPO for procedure Permcath exchange today Due for dialysis today Renal consult Po narcotics prn Vi Rocha Surgery Resident, PGY4 Pager [phone] Staff: As above. Minimal out BRITT. Will need revision of right groin TC today. Needs Coumadin for catheter to stay open. Once left thigh heals will need new graft placement. Rober Saravia MD ER OPERATOR HELPER Kathia Young RN - 11/19/2015 8:50 PM CST Arrived in observation at 2002, orders for pt to be inpatient. Pt placement notified. Will be transferring to station 33 via cart. Spoke with LINDA Gutiérrez and report given. BP remains elevated, will receive scheduled medications when transferred. Dressing CDI, BRITT drain to bulb suction with serosanguineous drainage. No hernandez. Sats stable on 1 LPM. Tracey Masters - 11/19/2015 12:13 PM CST Admission medication history interview status for the 11/19/2015 admission is complete. See [facility] admission navigator for prior to admission medications Medication history source reliability:Good Medication history interview source(s):Family (Aunt: Thelma, via phone) Medication history resources (including written lists, pill bottles, clinic record):Phone call with Aunt (Thelma: [phone]) Primary pharmacy.[facility] [phone] Additional medication history information not noted on HUMAN RESOURCES TRAINER med list :None Time spent in this activity: 25 minutes Prior to Admission medications Medication Sig Last Dose Taking? Auth Provider vitamin B complex with vitamin C (VITAMIN B COMPLEX) TABS Take 1 tablet by mouth every evening 11/18/2015 at pm Yes Reported, Patient Calcium Acetate, Phos Binder, (CALCIUM ACETATE PO) Take 1,334 mg by mouth 4 times daily (with meals and nightly) Takes with meals and snacks (2 x 667mg tablet) 11/18/2015 at pm Yes Reported, Patient LISINOPRIL PO Take 20 mg by mouth See Admin Instructions Take on M, W, F, [place] (Non-dialysis days only) 11/19/2015 at am Yes Reported, Patient bisacodyl (DULCOLAX) 5 MG EC tablet Take 10 mg by mouth See Admin Instructions Take on M, W, F, [place] (Non-dialysis days only) 11/17/2015 at am Yes Unknown, Entered By History Cholecalciferol (VITAMIN D3 PO) Take 2,000 Units by mouth daily 11/18/2015 at am Yes Unknown, Entered By History Metoprolol Tartrate (LOPRESSOR PO) Take 100 mg by mouth 2 times daily In the AM and at Noon. Takes on M, W, F, [place] (Non-dialysis days only) 11/19/2015 at am Yes Unknown, Entered By History warfarin (COUMADIN) 5 MG tablet Take 0.5 tablets by mouth daily. Patient taking differently: Take 5 mg by mouth daily 11/12/2015 at pm Yes Alejandro Emerson MD b buseyys-U-ptfdq acid (NEPHROCAPS) 1 MG capsule Take 1 capsule by mouth daily (with dinner) 11/18/2015 at pm Yes Reported, Patient simvastatin (ZOCOR) 40 MG tablet Take 40 mg by mouth every evening 11/18/2015 at pm Yes Reported, Patient ER OPERATOR HELPER documented in this encounter H&P Notes Radha York - 11/17/2015 10:52 AM CST This note is for the purpose of making the H&P performed in the clinic within the last 30 days available in the hospital surgical encounter. ER OPERATOR HELPER Source Note - Everardo Akbar MD - 11/06/2015 12:18 PM TESTER OPERATOR HELPER History Chief Complaint: L groin swelling HPI History limited due to patient's baseline mental status. He is a poor historian. Julio Cesar Sandhu is a 50 year old male who presents to the emergency department today with concern for L groin swelling by dialysis staff. The patient went to his routine dialysis run (right side groin catheter utilized) today and had a full run, though the staff felt that his left side graft/fistula hematoma (not being used) is enlarged. He currently he has no complaints, denies trauma. The patient has had no fever or pain around the left sided fistula/graft. No change in skin color has been described by dialysis staff (pt blind). Followed by Dr. Saravia, who last revised his L groin graft in OR on 08/13/2015. Seen by Dr. Saravia in clinic mid-September. Had a previously diagnosed hematoma around L groin graft. Allergies: Aspirin - GI Disturbance Medications: Ancef Phoslo Lisinopril Dulcolax Vitamin D Lopressor Coumadin Nephrocaps Zocor Past Medical History: Hypertension Retinopathy Kidney disease Hyperkalemia End stage renal disease Blind DVT Orthostasis Diabetes Hypertension A-V fistula Hyperlipidemia Cognitive deficits Sleep apnea Hyperlipidemia Past Surgical History: AV fistula or graft arterial TURP, circumcision Create fistula arteriovenous upper extremity Create graft loop arteriovenous lower extremity Insert catheter venous translumbar Bypass graft femoropopliteal Create fistula arteriovenous lower extremity Revision fistula arteriovenous lower extremity Irrigation and debridement left lower extremity Cath AV dialysis shunt placement Family History: History reviewed. No pertinent family history. Social History: Smoking Status: Negative Smokeless Tobacco: Negative Alcohol Use: Negative Marital Status: Single Review of Systems Unable to perform ROS: Other pt is a poor historian Physical Exam First Vitals: BP: 164/89 mmHg Pulse: 69 Temp: 98.5 ??F (36.9 ??C) Resp: 18 Weight: 90.719 kg (200 lb) SpO2: 100 % Physical Exam General: nontoxic appearing male recumbent in 25 HENT: mucous membranes moist CV: regular rate, regular rhythm, large pulsatile firm mass palpable in L groin with bruit, approx 12x5 cm total extent of firm area Dialysis catheter in R groin with base c/d/i Resp: normal effort, clear throughout, no crackles or wheezing GI: abdomen soft and nontender, no guarding MSK: no bony tenderness Skin: L groin skin appears wnl without visible erythema, drainage, or blisters or pustules Neuro: alert, moves all extremities but poor historian Psych: calm, cooperative Emergency Department Course Imaging: Radiology findings were communicated with the family who voiced understanding of the findings. US Ext. Arterial Venous Dialysis Acs. Graft: 1. Large pseudoaneurysm arising near the apex of the fistula. Either a thrombosed portion of the pseudoaneurysm or large hematoma visible adjacent to the venous outflow limb causing significant narrowing with visible diameter of 1.1 mm. The AV fistula remains patent, though concern for impending thrombosis given mass effect and extrinsic compression. 2. Small pseudoaneurysm at the distal aspect of the arterial limb measuring 1.9 x 2.2 x 1.1 cm. 3. Nonocclusive thrombus noted in the venous outflow limb, not visible on previous exam, further evidence for concern of impending graft Failure. Preliminary result per radiology Laboratory: Laboratory findings were communicated with the family who voiced understanding of the findings. CBC: WBC 3.0 Low, HGB 9.7 Low, PLT 85 Low o/w WNL. BMP: NA 129 Low, Potassium 3.0 Low, Chloride 92 Low, Glucose 107 High, Calcium 7.9 Low, Creatinine 5.94 High, o/w WNL INR: 3.02 High Emergency Department Course: Nursing notes and vitals reviewed. I performed an exam of the patient as documented above. IV was inserted and blood was drawn for laboratory testing, results above. 1302: I spoke with Dr. Aceves of the surgical service regarding patient's presentation, findings, and plan of care. The patient was sent for a US Ext. Arterial Venous Dialysis Acs. Graft while in the emergency department, results above. 1503: I spoke with Dr. Aceves of the surgical service regarding patient's presentation, findings, and plan of care. I discussed the treatment plan with the patient's family. They expressed understanding of this plan and consented to discharge. They will be discharged home with instructions for care and follow up. Inaddition, the patient will return to the emergency department if their symptoms persist, worsen, if new symptoms arise or if there is any concern. All questions were answered. I personally reviewed the laboratory results with the Patient's family and answered all related questions prior to discharge. Impression & Plan Medical Decision Making: Julio Cesar Sandhu is a 50 year old male with complex history on dialysis with significant prior vascular access problems who presents to the emergency department today after dialysis when the staff member became concerned about the size of his left groin. After speaking with the vascular team, repeat ultrasound was performed with abnormal results as above. I spoke with Dr. Aceves on several occasions and he has reviewed the images. He felt the patient would be safe for outpatient follow up tomorrow in clinic, having specifically discussed concern for the possibility of impending thrombus and pseudoaneurysm. Patient is asymptomatic, but is a poor historian. No evidence of infection or pain. Ultima tely the patient was seen by the vascular surgeon Dr. Lares in the emergency department who confirmed that the vascular team felt he was safe for discharge and close follow up in their clinic. Dialysis should continue to use the right groin line which is working well. He was kept in the emergency department for an extended period while waiting for family to arrive from [place] to come pick him up. Diagnosis: (1. 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 11/06/2015 EMERGENCY DEPARTMENT Everardo Akbar MD 11/06/15 1727 ER OPERATOR HELPER documented in this encounter Consult Notes Job Her MD - 11/20/2015 12:02 PM CSTAssociated Order(s): NEPHROLOGY IP CONSULT RENAL CONSULTATION NOTE REFERRING MD: Vi Church REASON FOR CONSULTATION: ESRD HPI: 50 y.o man with HTN, h/o MSSA bacteremia, DVT, SHIRLEY and ESRD, who was admitted for dialysis access dysfunction. Pt had a pseudoaneurysm/hematoma evacuated and the thigh graft ligated by Dr. Saravia. He had R femoral tunneled CVC place, and he is due for dialysis today. Patient without complaints. No SOB. No chest pain. No N/V. No pain in the left thigh. ROS: A complete review of systems was performed and is negative except as noted above. PMH: Past Medical History Diagnosis Date ??? Hypertension ??? Anemia ??? Retinopathy ??? Kidney disease ??? Kidney disease ??? Hyperkalemia ??? ESRD (end stage renal disease) (HCC) dialysis T- ??? Blind ??? DVT (deep venous thrombosis) (HCC) ??? Orthostasis ??? Diabetes mellitus (HCC) ??? Syncope ??? Hypertension ??? A-V fistula ([facility]) left forearm ??? Hyperlipemia ??? Cognitive [...] LOWER EXTREMITY; Surgeon: Rober Saravia MD; Location: OR MEDICATIONS: ??? heparin Lock (1000 units/mL High concentration) 3 mL Intracatheter Once ??? heparin Lock (1000 units/mL High concentration) 3 mL Intracatheter Once ??? B ijhsqxr-G-zwogc acid 1 capsule Oral Daily with supper ??? [START ON 11/21/2015] bisacodyl 10 mg Oral Once per day on Sun Tue ??? calcium acetate 1,334 mg Oral 4x Daily w/meals ??? cholecalciferol (vitamin D) tablet 2,000 Units 2,000 Units Oral Daily ??? [START ON 11/21/2015] lisinopril (PRINIVIL,ZESTRIL) tablet 20 mg 20 mg Oral Once per day on Sun Tue ??? metoprolol (LOPRESSOR) tablet 100 mg 100 mg Oral BID ??? simvastatin 40 mg Oral QPM ??? vitamin B complex with vitamin C 1 tablet Oral QPM ??? sodium chloride (PF) 3 mL Intravenous Q8H ??? heparin 5,000 Units Subcutaneous Q12H ALLERGIES: Allergies as of 11/11/2015 - reviewed 11/07/2015 Allergen Reaction Noted ??? Aspirin [dihydroxyaluminum aminoacetate] [...] file Social History Narrative PHYSICAL EXAM: BP 183/84 mmHg Pulse 71 Temp(Src) 98.9 ??F (37.2 ??C) (Oral) Resp 16 Ht 1.626 m (5' 4) Wt87.045 kg (191 lb 14.4 oz) BMI 32.92 kg/m2 SpO2 99% GENERAL:NAD HEENT: Normocephalic. No gross abnormalities. Pupils equal. MMM. CV: RRR, +murmur, no clicks, gallops, or rubs, no edema, no carotid bruits RESP: Clear bilaterally with good efforts. No wheezes or crackles. GI: Abdomen obese, soft, NT MUSCULOSKELETAL: extremities nl - no gross deformities noted SKIN: no suspicious lesions or rashes, dry to touch NEURO: Strength normal and symmetric. A/O x 3. Slow. PSYCH: mood good, affect appropriate LYMPH: No palpable ant/post cervical R femoral CVC LABS: CBC RESULTS: Recent Labs Lab 11/19/15 1233 WBC 3.1* RBC 3.81* HGB 9.5* HCT 30.5* PLT 148* BMP RESULTS: Recent Labs Lab 11/19/15 1233 NA 131* POTASSIUM 3.9 CHLORIDE 95 CO2 25 BUN 40* CR 10.00* GLC 82 JON 8.8 INR Recent Labs Lab 11/19/15 1233 INR 1.05 DIAGNOSTICS: Reviewed A/P: 50 y.o man with ESRD and dysfunction thigh AVF s/p evacuation of the hematoma and ligation of the graft. 1. ESRD. HD today. 2. Anemia. JOHANNA with HD 3. HTN. SBP is high on metoprolol. Will review outpatient HD run. 4. Access: R femoral CVC 5. CKD-MBD. Phoslo. 6. Hyponatremaia. Will improve with UF and HD. Job Her MD [facility] - Nephrology Office Pager: [phone] ER OPERATOR HELPER documented in this encounter Nursing Notes Marissa Pantoja RN - 11/20/2015 10:40 AM CST Post op call not done as patient was admitted. ER OPERATOR HELPER Jovana Peterson RN - 11/19/2015 7:[address] Domenico Jones at bedside. Aware of elevated BP. Approved to transfer to Obs unit where he will start back on his Lisinopril and Metoprolol. Resident MD Vi also aware of this plan and approves. Patient is hungry. Report called to LINDA Muñoz who is aware of clear liquids/advance as tolerated order onpost- procedure orders.l Transported by ROXANNE Villaseñor on cart to OBS unit. ER OPERATOR HELPER documented in this encounter Miscellaneous Notes Plan of Care - Vu Riggins RN - 11/21/2015 10:07 AM CST Problem: Individualization Goal: Patient Preferences Outcome: Improving Discharge instructions reviewed with pt's mother on the phone, all questions addressed. ER OPERATOR HELPER Plan of Care - Evelina Gant RN - 11/21/2015 6:43 AM CST Problem: Goal Outcome Summary Goal: Goal Outcome Summary Outcome: No Change VSS. Afebrile. LS clear. BS active, reports passing flatus. Large appetite. Denies nausea. CMS intact. Pulses palpable. Incision c/d/i. CVC c/d/i. 10cc of dark red drainage via BRITT. Slept between cares. ER OPERATOR HELPER Plan of Care - Debra Garner RN - 11/20/2015 7:58 PM CST Problem: Goal Outcome Summary Goal: Goal Outcome Summary Outcome: Improving Vs no c/o pain, on room air, trying to have some boundaries regarding food intake and reminding patient to slow down when he eats. Had dialysis today after a fem site Was placed on the right groin . Site WDL, CMS intact. To hopefully get BRITT removed in the morning ( barely any output today) and then discharge with a ride service to his residence. ER OPERATOR HELPER Pharmacy-Anticoagulation Service - Mirlande Oconnell RPH - 11/20/2015 2:51 PM CST Clinical Pharmacy - Warfarin Dosing Consult Pharmacy has been consulted to manage this patient???s warfarin therapy. Indication: Other - specify in comments (To Maintain Dialysis Catheter Access) Therapy Goal: INR 2-3 Warfarin Prior to Admission: Yes Warfarin HUMAN RESOURCES TRAINER Regimen: 5mg daily Significant drug interactions: simvastatin INR Date Value Ref Range Status 11/20/2015 1.10 0.86 - 1.14 Final Recommend warfarin 5 mg today. Pharmacy will monitor Julio Cesar Sandhu daily and order warfarin doses to achieve specified goal. Please contact pharmacy as soon as possible if the warfarin needs to be held for a procedure or if the warfarin goals change. Mirlande Oconnell, PharmWilliam. ER OPERATOR HELPER Utilization Review - Taran Jean-Baptiste MD - 11/20/2015 2:06 PM CST Concurrent stay review; Secondary Review Determination [facility] Under the authority of the Utilization Management Committee, the utilization review process indicated a secondary review on the above patient. The review outcome is based on review of the medical records, discussions with staff, and applying clinical experience noted on the date of the review. (x) Outpatient Status Appropriate - Concurrent stay review RATIONALE FOR DETERMINATION Nephrology note:50 y.o man with HTN, h/o MSSA bacteremia, DVT, SHIRLEY and ESRD, who was admitted for dialysis access dysfunction. Pt had a pseudoaneurysm/hematoma evacuated and the thigh graft ligated byDr. Saravia. He had R femoral tunneled CVC place, and he is due for dialysis today. Patient without complaints. No SOB. No chest pain. No N/V. No pain in the left thigh. Surgery:Surgical drain likely to be removed tomorrow AM. Patient is clinically improving and there is no clear indication to change patient's status to inpatient. This document was produced using voice recognition [...] 1 and Chapter 6, section 70.4. Sincerely, TARAN JEAN-BAPTISTE MD System Patient Services SpecialistRegional Account Director [facility]. ER OPERATOR HELPER Plan of Care - Evelina Gant RN - 11/20/2015 5:27 AM CST Problem: Goal Outcome Summary Goal: Goal Outcome Summary Outcome: No Change HTN, metop given. SBP remains below 180s. Afebrile. BS hypoactive, denies passing flatus. Large appetite. Denies nausea. No bruit or thrill present, MD aware. CMS intact. Pulses palpable. Incision CDI.Slept between cares. ER OPERATOR HELPER Provider Notification - Evelina Gant RN - 11/20/2015 1:14 AM CST Spoke with Dr. Reynoso regarding No bruit or thrill present. No new orders obtained. Will assess in am. ER OPERATOR HELPER Provider Notification - Evelina Gant RN - 11/20/2015 12:53 AM CST Spoke with Dr. Hernandez regarding HTN. Orders obtained for PRN Metop and enalapril, see mar. ER OPERATOR HELPER Plan of Care - Marla Deras RN - 11/19/2015 11:44 PM CST Problem: Goal Outcome Summary Goal: Goal Outcome Summary Outcome: No Change Arrived to unit approx 2130. A&O. BP elevated, scheduled metoprolol given, decreased to 169/82 at 2330. BRITT drain patent w/ dark red output. Tolerated regular diet. BS hypoactive. Denies pain, denies nausea. Pulses 2+ bilaterally. Dressing C/D/I. ER OPERATOR HELPER Brief Op Note - Vi Rocha MD - 11/19/2015 6:32 PM CST [facility] Brief Operative Note Pre-operative diagnosis: PSEUDOANEURYSM OF LEFT THIGH ARTERIOVENOUS FISTULA Post-operative diagnosis clotted left leg AV graft and pseudoaneurysm Procedure: Procedure(s): EVACUATION OF LEFT THIGH PSEUDOANEURYSM HEMATOMA , AV FISTULA THROMBECTOMY WITH INTRAOPERATICE ANGIOGRAM, GRAFT LIGATION Surgeon(s): Surgeon(s) and Role: * Rober Saravia MD - Primary Estimated blood loss: 75 mL Specimens: * No specimens in log * Findings: Left thigh AV graft is clotted. There is a large area of pseudoaneurysm, which was evacuated. The venous and arterial limbs were studied under fluoro. There is venous outflow stenosis. Arterial limb is somewhat open but still has clot that was not able to be evacuated. The graft was ligated. ER OPERATOR HELPER Op Note - Rober Saravia MD - 11/19/2015 6:26 PM CST PREOPERATIVE DIAGNOSIS: Large left thigh arteriovenous fistula pseudoaneurysm with graft thrombosis. POSTOPERATIVE DIAGNOSES: 1. Large left thigh arteriovenous fistula pseudoaneurysm with graft thrombosis. 2. Significant outflow stenosis of venous limb. PROCEDURES: 1. Evacuation and drainage of left anterior thigh pseudoaneurysm-hematoma. 2. Vascular control with arterial and venous graft limb thrombectomies. a. Intraoperative fistulogram. b. Ligation of inflow and outflow portion of graft. SURGEON: Rober Saravia MD MEDICAL STAFFING COORDINATOR: Vi Rocha MD ([facility] surgery resident) ANESTHESIA: General. PREOPERATIVE MEDICATIONS: Ancef 2 grams IV. INDICATIONS: Julio Cesar Sandhu is on chronic hemodialysis at the [place] [facility]. He hasno upper extremity access options. He had a left thigh PTFE graft. This developed infection of pseudoaneurysm. We replaced 3/4 of the graft with the ProCol mesenteric vein leaving approximately 6 cm ofthe inflow being PTFE to the arterial anastomosis. This graft had been maturing well. He has been dialyzing via right femoral tunneled catheter. With the first attempt of using the graft he developed very large pseudoaneurysm off the very distal limb of the graft. This increased in size and he was seen in the hospital approximately 2 weeks ago where there was noted to be a large defect within the ProCol segment of the graft with a pseudoaneurysm measuring almost 10 cm in diameter. On the medial aspect this was significant compressing the graft that was patent. There was also a second pseudoaneurysmlocated several centimeters on the inflow side of the ProCol graft much smaller in nature. The patient had been on chronic Coumadin anticoagulation. It was felt that this needed to be repaired surgicall y. There was a concern that the pseudoaneurysm was increasing in size and due to weather conditions he could not be transferred to the hospital last week and therefore, we held his Coumadin to prevent any further potential bleeding. The patient presents today for surgical repair but clinically the fistula/graft is thrombosed. Overlying skin is unremarkable with no evidence of infection or erosion. DESCRIPTION OF PROCEDURE: The patient was brought to operating room. He was induced under general anesthesia, orally intubated without difficulty. Hernandez catheter was not necessary due to his anuria. Left groin and thigh were prepped and draped in the usual fashion placing him in frog-leg position. Calf pneumatic compression boots were used. A timeout was called and the sites were identified. EVACUATION OF HEMATOMA: We could palpate the inflow and outflow portions of the ProCol graft around the pseudoaneurysm. We made an incision on the medial outflow portion. We identified the graft to graft anastomosis of the most recent ProCol revision. We partially opened this. There was obvious thrombus within the graft as expected. We then opened this up more laterally entering a large hematoma cavity with clot being expressed. This was irrigated with saline solution. There was no active bleeding. GRAFT EXPOSURE: We dissected free the venous outflow limb for several centimeters. The ProCol graft itself had thrombus within it but appeared to be otherwise unremarkable. We made a second incision onthe ProCol graft several centimeters from the PTFE original anastomosis. This was dissected free and transected. Again, there was organized thrombus noted. The graft itself had some organized wall thrombus that we removed, but otherwise appeared unremarkable and did not appear to be degenerating. GRAFT THROMBECTOMY: With the use of #4 Farrah we passed these up the arterial limb. This was slightly difficult and we removed some thrombus with pulsatile flow being noted. Heparinized saline solution was injected. Vascular clamp was applied. On the venous outflow channel, but again we passed a #4 Farrah. There was some difficulty manipulating this but we were able to pass this up into the external iliac vein and removed thrombus with some backbleeding. Heparinized saline solution was easily injected. INTRAOPERATIVE ANGIOGRAM: Very concerned about the inflow and outflow portions. We initially injected the arterial inflow side. There was some remaining thrombus within the ProCol segment but the PTFE was opened to our anastomosis. Heparinized saline solution was injected and a vascular clamp was applied. We then injected the venous outflow limb. There was no residual thrombus, but there was a significant narrowing at the anastomosis to the common femoral vein. Under fluoroscopy, we passed our Farrah again identifying this location. This appeared to be only 1-2 mm in diameter. This was a significant change from her recent duplex ultrasound with no stenosis appreciated. I could pass a #3 dilator through this. GRAFT LIGATION: With significant problem in his thigh related to the hematoma it was obvious that tocorrect these problems, we have to redo the entire graft from the femoral vessels. If we did so thiswould not be adequate length for the dialysis unit to use the graft because of the hematoma area. Wetherefore decided at this time to abandon the graft and plan for later new placement of a graft in the thigh since both the inflow and outflow vessels were otherwise patent. We therefore ligated the arterial and venous ProCol limbs with a running mattress 5-0 Prolene suture. HEMATOMA DRAINED: The areas were irrigated. We closed separately the small incision over the inflow portion interrupted 3-0 Vicryl and 4-0 Monocryl in subcuticular fashion, followed by several interrupted 4-0 Monocryls. On the large hematoma cavity #19 round Jose-Campbell drain was placed in the cavity and brought out of a distal stab incision and secured with a 2-0 nylon suture. This was irrigated with saline. Wounds were infiltrated with 1% lidocaine with bicarbonate for postop analgesia. We closed the distal incision with interrupted 3-0 Vicryl deep and 4-0 Monocryl in subcuticular fashion. Gauze dressings were applied. The patient tolerated the procedure well. Estimated blood loss was 75 mL. ROBER SARAVIA MD MT: [id number] Name: JULIO CESAR SANDHU Account: [id number] : 1965 Procedure Date: 11/19/2015 Document: [id number] cc: [facility] Saravia MD ER OPERATOR HELPER documented in this encounter Plan of Treatment Not on filedocumented as of this encounter Procedures Procedure Name Priority Date/Time Associated Diagnosis Comme nts INR Routine 11/21/2015 7:09 Results for this AM TESTER OPERATOR HELPER procedure are i n the results section. GLUCOSE Routine 11/21/2015 7:09 Results for this AM TESTER OPERATOR HELPER procedure are i n the results section. INR Routine 11/20/2015 11:30 Results for this AM TESTER OPERATOR HELPER procedure are i n the results section. BASIC METABOLIC PANEL Routine 11/20/2015 11:30 Re sults for this AM TESTER OPERATOR HELPER procedure are i n the results section. CBC WITH PLATELETS Routine 11/20/2015 11:30 Resul ts for this AM TESTER OPERATOR HELPER procedure are i n the results section. IR CVC TUNNEL Routine 11/20/2015 8:28 Results for this REVISION RIGHT AM TESTER OPERATOR HELPER procedure are in the results section. XR SURGERY NIHARIKA Routine 11/19/2015 6:15 Results f or this FLUORO LESS THAN 5 PM TESTER OPERATOR HELPER procedure are in MIN W STILLS the results section. REVISION, 11/19/2015 4:01 clotted left leg AV ARTERIOVENOUS PM TESTER OPERATOR HELPER graft and FISTULA, LOWER pseudoaneurysm EXTREMITY EKG 12-LEAD, TRACING Routine 11/19/2015 12:50 Res ults for this ONLY PM TESTER OPERATOR HELPER procedure are i n the results section. INR STAT 11/19/2015 12:33 Results for this PM TESTER OPERATOR HELPER procedure are i n the results section. BASIC METABOLIC PANEL STAT 11/19/2015 12:33 Re sults for this PM TESTER OPERATOR HELPER procedure are i n the results section. CBC WITH PLATELETS STAT 11/19/2015 12:33 Resul ts for this PM TESTER OPERATOR HELPER procedure are i n the results section. documented in this encounter Results Glucose (11/21/2015 7:09 AM TESTER OPERATOR HELPER) P athologist Signature Glucose 92 70 - 99 [place] mg/dL [facility] Specimen Anatomical Collection Method Collection Time Receive d Time (Source) Location / / Volume Laterality Blood specimen 11/21/2015 7:09 AM 016 7:22 (specimen) TESTER OPERATOR HELPER AM TESTER OPERATOR HELPER Rober Saravia MD LAB - BLOOD ORDERABLES Performing Organization Address City/State/ZIP Code Phon e Number M [facility] [address] [place] [address] [facility] [address] [place] [address], [place] [phone] INR (11/21/2015 7:09 AM TESTER OPERATOR HELPER) P athologist Signature INR 1.09 0.86 - 1.14 [facility] Specimen Anatomical Collection Method Collection Time Receive d Time (Source) Location / / Volume Laterality Blood specimen 11/21/2015 7:09 AM 016 7:22 (specimen) TESTER OPERATOR HELPER AM TESTER OPERATOR HELPER Vi Rocha MD LAB - BLOOD ORDERABLES Performing Organization Address City/[facility]/ZIP Code Phon e Number M [facility] [address] [place] [address] [facility] [address] [place] [address], [place] [phone] INR (11/20/2015 11:30 AM TESTER OPERATOR HELPER) P athologist Signature INR 1.10 0.86 - 1.14 [facility] Specimen Anatomical Collection Method Collection Time Receive d Time (Source) Location / / Volume Laterality Blood specimen 11/20/2015 11:30 6 (specimen) AM TESTER OPERATOR HELPER 12:13 PM TESTER OPERATOR HELPER Rober Saravia MD LAB - BLOOD ORDERABLES Performing Organization Address City/State/ZIP Code Phon e Number M [facility] [address] [place] [address] [phone] [facility] [address] [place] [address], [place] [phone] (ABNORMAL) CBC with platelets (11/20/2015 11:30 AM TESTER OPERATOR HELPER) Analysis Performed At Patho logist Time Signature WBC 4.7 4.0 - 11.[address]/[facility] RBC Count 3.54 (L) 4.4 - 5.9 [place] 10e12/L [facility] Hemoglobin 9.0 (L) 13.3 - [place] 17.7 g/dL [facility] [facility] Hematocrit 28.3 (L) 40.0 - [place] 53.0 % [facility] MCV 80 78 - 100 [place] fl [facility] MCH 25.4 (L) 26.5 - [place] 33.0 pg [facility] MCHC 31.8 31.5 - [place] 36.5 g/dL [facility] RDW 16.3 (H) 10.0 - [place] 15.0 % [facility] Platelet Count 140 (L) 150 - 450 [place] 10e9/L [facility] Specimen Anatomical Collection Method Collection Time Receive d Time (Source) Location / / Volume Laterality Blood specimen 11/20/2015 11:30 6 (specimen) AM TESTER OPERATOR HELPER 12:13 PM TESTER OPERATOR HELPER Rober Saravia MD LAB - BLOOD ORDERABLES Performing Organization Address City/State/ZIP Code Phon e Number M [facility] [address] [phone] [facility] [address] [id number], [facility] [phone] (ABNORMAL) Basic metabolic panel (11/20/2015 11:30 AM TESTER OPERATOR HELPER) [facility] Method Time Signature Sodium 132 (L) 133 - 144 [place] mmol/L [facility] Potassium 4.9 3.4 - 5.3 [place] mmol/L [facility] Chloride 97 94 - 109 [place] mmol/L [facility] Carbon Dioxide 26 20 - 32 [place] mmol/L [facility] Anion Gap 9 3 - 14 [place] mmol/L [facility] Glucose 133 (H) 70 - 99 [place] mg/dL [facility] Urea Nitrogen 52 (H) 7 - 30 [place] mg/dL [facility] Creatinine 11.80 (H) 0.66 - [facility] 1.25 mg/dL [facility] GFR Estimate 5 (L) >60 [place] mL/min/1.[address] Comment: Non GFR Calc GFR Estimate If Black 5 (L) >60 mL/min/1.7m2 [facility] Comment: GFR Calc Calcium 7.9 (L) 8.5 - 10.1 mg/dL [facility] Specimen Anatomical Collection Method Collection Time Receive d Time (Source) Location / / Volume Laterality Blood specimen 11/20/2015 11:30 6 (specimen) AM TESTER OPERATOR HELPER 12:13 PM TESTER OPERATOR HELPER Rober Saravia MD LAB - BLOOD ORDERABLES Performing Organization Address City/State/ZIP Code Phon e Number M [facility] [address] [place] [address] [facility] [address] [place] [address], [place] [phone] IR CVC Tunnel Revision Right (11/20/2015 8:28 AM TESTER OPERATOR HELPER) Anatomical Region Laterality Modality Chest Radio Fluoroscopy Specimen (Source) Anatomical Location Collection Method / Collectio n Time Received Time / Laterality Volume Impressions 11/20/2015 4:34 PM TESTER OPERATOR HELPER IMPRESSION: The existing right femoral tunneled dialysis catheter was occluded with thrombus within both ports . The catheter was removed over a wire and replaced with a Duraflow 15 Bermudian 31 cm tip to cuff dialysis catheter which was placed in th e inferior vena cava. TEJAS KLEIN MD Narrative 11/20/2015 4:34 PM TESTER OPERATOR HELPER INTERVENTIONAL RADIOLOGY CVC TUNNEL REVISION RIGHT ??11/20/2015 8:28 AM HISTORY: 50-year-old male undergoing fis fredo revision with a right femoral tunneled dialysis catheter in [facility] which has been functioning poorly. The patient requires continued t emporary dialysis through the catheter until the fistula can be utiliz ed. Request is for catheter dialysis revision. FINDINGS: The procedure was explained to the patient in detail and informed consent was obtained. Maximal S terile Barrier Technique Utilized: Cap AND mask AND sterile gown AND sterile gloves AND sterile full body drape AND hand hygiene AND ski n preparation 2% chlorhexidine for cutaneous antisepsis (or acceptable alternative antiseptics). The patient was prepped and draped and 1% li docaine was used as local anesthetic. Clot was aspirated from both ports of the existing catheter. Following aspiration, both por ts appear to function freely; however, the catheter was revised. A wir e was placed and the catheter was removed. Over the wire, an AngioD[employer] mics Duraflow 15 B[place]ud[place] 31 cm tip to cuff dialysis catheter was advanc ed over a wire into the mid inferior vena cava. The catheter was sut ured in place. Both ports of the catheter were aspirated and flushed and demonstrated good function and were subsequently heparin locked. A permanent fluoroscopic image was obtained documenting the tip of the catheter in the mid inferior vena cava. There were no immediate compl ications. Fluoroscopy time 0.2 minutes Antibiotic 2 g IV Ancef Local anesthetic 10 mL 1% lidocaine Contrast 20 mL of Isovue Conscious sedation 1 mg IV Versed, 50 ? IV fentanyl Sedation time 30 minutes. The patient was monitored by radiology n ursing staff under my supervision and remained stable througho ut the study. Procedure Note Tejas Klein MD - 11/20/2015Formatti ng of this note might be different from the original. INTERVENTIONAL RADIOLOGY CVC TUNNEL REVI NIEVES RIGHT 11/20/2015 8:28 AM HISTORY: 50-year-old male undergoing fis fredo revision with a right femoral tunneled dialysis catheter in [facility] which has been functioning poorly. The patient requires continued t emporary dialysis through the catheter until the fistula can be utiliz ed. Request is for catheter dialysis revision. FINDINGS: The procedure was explained to the patient in detail and informed consent was obtained. Maximal S terile Barrier Technique Utilized: Cap AND mask AND sterile gown AND sterile gloves AND sterile full body drape AND hand hygiene AND ski n preparation 2% chlorhexidine for cutaneous antisepsis (or acceptable alternative antiseptics). The patient was prepped and draped and 1% li docaine was used as local anesthetic. Clot was aspirated from both ports of the existing catheter. Following aspiration, both por ts appear to function freely; however, the catheter was revised. A wir e was placed and the catheter was removed. Over the wire, an AngioDyna mics Duraflow 15 B[place]ud[place] 31 cm tip to cuff dialysis catheter was advanc ed over a wire into the mid inferior vena cava. The catheter was sut ured in place. Both ports of the catheter were aspirated and flushed and demonstrated good function and were subsequently heparin locked. A permanent fluoroscopic image was obtained documenting the tip of the catheter in the mid inferior vena cava. There were no immediate compl ications. Fluoroscopy time 0.2 minutes Antibiotic 2 g IV Ancef Local anesthetic 10 mL 1% lidocaine Contrast 20 mL of Isovue Conscious sedation 1 mg IV Versed, 50 ? IV fentanyl Sedation time 30 minutes. The patient was monitored by radiology n ursing staff under my supervision and remained stable througho ut the study. IMPRESSION: The existing right femoral t unneled dialysis catheter was occluded with thrombus within both ports . The catheter was removed over a wire and replaced with a Duraflow 15 Bermudian 31 cm tip to cuff dialysis catheter which was placed in th e inferior vena cava. TEJAS KLEIN MD Rober Saravia MD IMG IR ORDERABLES XR Surgery NIHARIKA L/T 5 Min Fluoro w Stills (11/19/2015 6:15 PM TESTER OPERATOR HELPER) Specimen (Source) Anatomical Location Collection Method / Collectio n Time Received Time / Laterality Volume Impressions RADIANT - 11/19/2015 6:59 PM TESTER OPERATOR HELPER exam was marked as non-reportable because it will not be read by a radiologist or a [facility] non-radiologis t provider. Narrative RADIANT - 11/19/2015 6:59 PM TESTER OPERATOR HELPER This Rober Saravia MD IMG DIAGNOSTIC IMAGING ORDER NADIA Performing Organization Address City/State/ZIP Code Phon e Number [facility] 12-lead, tracing only (11/19/2015 12:50 PM TESTER OPERATOR HELPER) [facility] gist Method Time Signature Interpretation ECG Click View RADIOLOGY Image link RESULTS to view waveform and result Specimen (Source) Anatomical Collection Method Collection Time Re ceived Time Location / / Volume Laterality 11/19/2015 12:50 PM TESTER OPERATOR HELPER Den Triana DO ECG ORDERABLES Performing Organization Address City/State/ZIP [facility] Phon e Number RADIOLOGY RESULTS INR (11/19/2015 12:33 PM TESTER OPERATOR HELPER) athologist Signature INR 1.05 0.86 - 1.14 [facility] Specimen Anatomical Collection Method Collection Time Receive d Time (Source) Location / / Volume Laterality Blood specimen 11/19/2015 12:33 6 (specimen) PM TESTER OPERATOR HELPER 12:47 PM TESTER OPERATOR HELPER Rober Saravia MD LAB - BLOOD ORDERABLES Performing Organization Address City/State/ZIP [facility] Phon e Number [place] [phone] [address] [facility] [address] [address], [place] [phone] (ABNORMAL) CBC with platelets (11/19/2015 12:33 PM TESTER OPERATOR HELPER) Analysis Performed At Patho logist Time Signature WBC 3.1 (L) 4.0 - 11.0 [place] 10e9/L [facility] RBC Count 3.81 (L) 4.4 - 5.9 [place] 10e12/L [facility] Hemoglobin 9.5 (L) 13.3 - [place] 17.7 g/dL [facility] Hematocrit 30.5 (L) 40.0 - [place] 53.0 % [facility] MCV 80 78 - 100 [facility] MCH 24.9 (L) 26.5 - [place] 33.0 pg [facility] MCHC 31.1 (L) 31.5 - [place] 36.5 g/dL [facility] RDW 16.5 (H) 10.0 - [place] 15.0 % [facility] Platelet Count 148 (L) 150 - 450 [place] 10e9/L [facility] Specimen Anatomical Collection Method Collection Time Receive d Time (Source) Location / / Volume Laterality Blood specimen 11/19/2015 12:33 6 (specimen) PM TESTER OPERATOR HELPER 12:47 PM TESTER OPERATOR HELPER Rober Saravia MD LAB - BLOOD ORDERABLES Performing Organization Address City/State/ZIP Code Phon e Number M [facility] [address] [address] [facility] [address] [address], [place] [phone] (ABNORMAL) Basic metabolic panel (11/19/2015 12:33 PM TESTER OPERATOR HELPER) Patholo gist Method Time Signature Sodium 131 (L) 133 - 144 [place] mmol/L [facility] Potassium 3.9 3.4 - 5.3 [place] mmol/L [facility] Chloride 95 94 - 109 [place] mmol/L [facility] Carbon Dioxide 25 20 - 32 [place] mmol/L [facility] Anion Gap 11 3 - 14 [place] mmol/L [facility] Glucose 82 70 - 99 [place] mg/dL [facility] Urea Nitrogen 40 (H) 7 - 30 [place] mg/dL [facility] Creatinine 10.00 (H) 0.66 - [place] 1.25 mg/dL [facility] GFR Estimate 5 (L) >60 [facility] mL/min/1.[address] Comment: Non GFR Calc GFR Estimate If Black 7 (L) >60 mL/min/1.7m2 [facility] Comment: GFR Calc Calcium 8.8 8.5 - 10.1 mg/dL [facility] Specimen Anatomical Collection Method Collection Time Receive d Time (Source) Location / / Volume Laterality Blood specimen 11/19/2015 12:33 6 (specimen) PM TESTER OPERATOR HELPER 12:47 PM TESTER OPERATOR HELPER Rober Saravia MD LAB - BLOOD ORDERABLES Performing Organization Address City/State/ZIP Code Phon e Number M [facility] [address] [phone] [facility] [address] [address], [facility] [phone] documented in this encounter Visit Diagnoses Diagnosis Clotted renal dialysis arteriovenous gra ft, 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 (In Dialyzer), Dialysis 0.9% sodium chloride BOLUS New Bag 11/20/2015 1:48 PM TESTER OPERATOR HELPER 1,000 mLs Intravenous, 250-1,000 mL, ONCE IN DIALYSIS/CRRT, On Padmaja 11/20/15 at 1230, For 1 dose, For patient prime during dialysis, Dialysis B sqbnxvo-I-ywspp acid (NEPHROCAPS) capsule 1 Given 11/20/19 16 6:12 PM TESTER OPERATOR HELPER 1 mg mg 1 mg (1 capsule), Oral, DAILY WITH SUPPER, First dose on Tue11/19/15 at 2145, Post-procedure Given 11/19/2015 9:55 PM TESTER OPERATOR HELPER 1 mg bisacodyl (DULCOLAX) EC tablet 10 mg Given 11/21/2015 9:15 AM TESTER OPERATOR HELPER 10 mg 10 mg, Oral, USER SPECIFIED (Once per day on Tue), First dose on Tue11/21/15 at 0900, Trake on [facility], nondialysis days. DO NOT CRUSH., Post-procedure calcium acetate (PHOSLO) capsule 1,334 m g Given 11/21/2015 9:16 AM TESTER OPERATOR HELPER 1,334 mg 1,334 mg, Oral, 4 TIMES DAILY WITH MEALS & NIGHTLY, First dose on Tue11/19/15 at 2200, Post-procedure Given 11/20/2015 9:18 PM TESTER OPERATOR HELPER 1,334 mg Given 11/20/2015 6:10 PM TESTER OPERATOR HELPER 1,334 mg CeFAZolin (ANCEF) intermittent infusion Given 11/20/2015 8:1 5 AM TESTER OPERATOR HELPER 2 g 200 mL/hr 2 g STAT, 2 g, Intravenous, ONCE, On Padmaja 11/20/15 at 0815, For 1 dose, Indications: Perioperative Pharmacoprophylaxis, IR Intra-procedure cholecalciferol (vitamin D) tablet 2,000 Given 016 9:16 AM TESTER OPERATOR HELPER 2,000 Units Units 2,000 Units, Oral, DAILY, First dose on Tue11/20/15 at 0900, Post-procedure Given 11/20/2015 6:10 PM TESTER OPERATOR HELPER 2,000 Units fentaNYL (SUBLIMAZE) injection 25-50 mcg Given 11/20/2015 7:59 AM TESTER OPERATOR HELPER 50 mcg 25-50 mcg, Intravenous, EVERY 2 MIN PRN, other, acute pain, Starting on Tue11/19/15 at 2146, MAX cumulative dose = 250 mcg. Use Fentanyl initially, as a short acting agent for acute pain control. If insufficient, or a longer acting agent is needed, begin Morphine or Hydromorphone if ordered., PACU fentaNYL (SUBLIMAZE) injection 25-50 mcg Given 11/20/2015 7:59 AM TESTER OPERATOR HELPER 50 mcg 25-50 mcg, Intravenous, EVERY 5 MIN PRN, severe pain (7-10), If inadequate response may repeat 25 mcg IV slowly Q 5 min PRN severe pain, Administer over 2 Minutes, Starting on Padmaja 11/20/15 at 0740, Doses can be exceeded under direct oversight of patient by physician., IR Intra-procedure heparin 100 UNIT/ML injection 500 Given by Other 11/20/2015 8:1 8 AM TESTER OPERATOR HELPER 500 Units Units 500 Units, Intracatheter, ONCE, On Padmaja 11/20/15 at 0745, For 1 dose, IR Intra-procedure heparin 100 UNIT/ML injection 500 Given by Other 11/20/2015 8:1 9 AM TESTER OPERATOR HELPER 500 Units Units 500 Units, Intracatheter, ONCE, On Padmaja 11/20/15 at 0830, For 1 dose, IR Intra-procedure heparin sodium PF injection 5,000 Units Given 11/21/2015 9:16 AM TESTER OPERATOR HELPER 5,000 Units 5,000 Units, Subcutaneous, EVERY 12 HOURS, First dose on Padmaja 11/20/15 at 0900, Check to make sure start date/time is 12-24 hours post op unless documented complication. Continue until discharge to home. HOLD if platelet count falls below 50% of baseline or less than 100,000/??L and notify provider., Post-procedure Given 11/20/2015 9:18 PM TESTER OPERATOR HELPER 5,000 Units iopamidol (ISOVUE-300) IV solution 61% 5 0 mL Given 11/20/2015 8:15 AM TESTER OPERATOR HELPER 20 mLs 50 mL, Arterial, ONCE, On Padmaja 11/20/15 at 0815, For 1 dose, IR Intra-procedure lisinopril (PRINIVIL,ZESTRIL) tablet 20 mg Given 11/21/2015 9:15 AM TESTER OPERATOR HELPER 20 mg 20 mg, Oral, USER SPECIFIED (Once per day on Sun Tue), First dose on Tue11/21/15 at 0900, Take on MWFSu, non dialysis days, Post-procedure metoprolol (LOPRESSOR) tablet 100 mg Given 11/21/2015 9:15 AM TESTER OPERATOR HELPER 100 mg 100 mg, Oral, 2 TIMES DAILY, First dose on Tue11/19/15 at 2130, For Adults, Hold if HR < 60 or SBP<100 Take on [facility], non dialysis days, Post-procedure Given 11/20/2015 9:18 PM TESTER OPERATOR HELPER 100 mg Given 11/19/2015 9:55 PM TESTER OPERATOR HELPER 100 mg midazolam (VERSED) injection 0.5-1 mg Given 11/20/2015 7:59 AM TESTER OPERATOR HELPER 1 mg 0.5-1 mg, Intravenous, Administer over 1 Minutes, EVERY 4 MIN PRN, sedation, If inadequate response may repeat 0.5 mg IV slowly Q 4 minutes PRN sedation until desired response., Starting on Padmaja 11/20/15 at 0740, Doses can be exceeded under direct oversight of patient by physician., IR Intra-procedure simvastatin (ZOCOR) tablet 40 mg Given 11/20/2015 9:18 PM TESTER OPERATOR HELPER 40 mg 40 mg, Oral, EVERY EVENING, First dose on Tue11/19/15 at 2130, Post-procedure Given 11/19/2015 9:55 PM TESTER OPERATOR HELPER 40 mg sodium chloride (PF) 0.9% PF flush 3 mL Given 11/21/2015 4:57 AM TESTER OPERATOR HELPER 3 mLs 3 mL, Intravenous, EVERY 8 HOURS, First dose on Tue11/19/15 at 2130, to lock peripheral IV dormant line. Also Ordered Q1H PRN, Post-procedure Given 11/20/2015 9:19 PM TESTER OPERATOR HELPER 3 mLs Given 11/20/2015 6:32 AM TESTER OPERATOR HELPER 3 mLs vitamin B complex with vitamin C (STRESS Given 11/20/2015 9:18 P M TESTER OPERATOR HELPER 1 tablet TAB) tablet 1 tablet 1 tablet, Oral, EVERY EVENING, First dose on Tue11/19/15 at 2130, Post-procedure Given 11/19/2015 9:55 PM TESTER OPERATOR HELPER 1 tablet warfarin (COUMADIN) tablet 5 mg Given 11/20/2015 6:11 PM TESTER OPERATOR HELPER 5 mg 5 mg, Oral, ONCE AT 6PM, On Padmaja 11/20/15 at 1800, For 1 dose, INR = 1.10 documented in this encounter Active and Recently Administered Medications Times are shown in TESTER OPERATOR HELPER. Scheduled Medication Order 11/19/2015 11/20/2015 11/21/2015 0.9% sodium chloride BOLUS (COMPLETED) 1 349 (New Bag - Provider: Jazmín Soriano, RN, RN) Hemodialysis Machine, 250 mL, ONCE, Padmaja 11/20/15 at 1230, For 1 dose, For Dialyzer Prime. (In Dialyzer), Dialysis 0.9% sodium chloride BOLUS (COMPLETED) 1 348 (New Bag - Provider: Jazmín Soriano, LINDA, RN) Intravenous, 250-1,000 mL, ONCE IN DIALY SIS, Padmaja 11/20/15 at 1230, For 1 dose, For patient prime during dialysis, Dialysis B egzstup-V-kbrxb acid (NEPHROCAPS) capsule 1 mg (CANC ELED) 2154 (Given - Provider: Marla Deras RN) 181 (Given - Provider: Debra arellano RN) 1 mg (1 capsule), Oral, DAILY WITH SUPPE R, First dose on Tue11/19/15 at 2145, Post-procedure bisacodyl (DULCOLAX) EC tablet 10 mg (CANCELED) 0915 (Given - Provider: Vu Riggins RN) 10 mg, Oral, USER SPECIFIED (Once per da y on Tue), First dose on Tue11/21/15 at 0900, Trake on [facility], nondialysis days. DO NOT CRUSH., Post-procedure calcium acetate (PHOSLO) capsule 1,334 mg (CANCELED) 2 155 (Given - Provider: Marla Deras RN) 1741 (Canceled Entry - Provider: Debra Garner RN - Comment: at dialysis)1810 (Given - Provider: Debra Garner RN)1813 (Canceled Entry - Provider: Debra Garner RN - Comment: at procedure) 0916 (Given - Provider: Vu Riggins RN) 1,334 mg, Oral, 4 TIMES DAILY WITH MEALS & NIGHTLY, First dose on Tue11/19/15 at 2200, Post-procedure 2118 (Given - Provider: Elva Scott) CeFAZolin (ANCEF) intermittent infusion 2 g (COMPLETED ) 1615 (Given - Provider: Dona Meyer APRN CRNA) 2 g, Intravenous, PRE-OP/PRE-PROCEDURE, Starting Tue11/19/15 at 1222, For 1 dose, Give first dose within 1 hour PRIOR to incision. If patient weight is greater than or equal to 120 kg change dose to 3 g ., Indications: Surgical Prophylaxis, Pre-procedure CeFAZolin (ANCEF) intermittent infusion 2 g (COMPLETED) 814 (Given - Provider: Anusha Jesus RN) 2 g, Intravenous, ONCE, Padmaja 11/20/15 at 0 815, For 1 dose, Indications: Surgical Prophylaxis, IR Intra-procedure cholecalciferol (vitamin D) tablet 2,000 Units (CANCELED) 1809 (Given - Provider: Debra Garner RN - Comment: procedure tday) 915 (Given - Provider: Vu Riggins RN) 2,000 Units, Oral, DAILY, First dose on Padmaja 11/20/15 at 0900, Pos t-procedure heparin 100 UNIT/ML injection 500 Units (COMPLETED) 817 (Given by Other - Provider: Anusha Jesus RN - Comment: Dr. Klein) 500 Units, Intracatheter, ONCE, Padmaja 11/20 at 0745, For 1 dose, IR Intra-procedure heparin 100 UNIT/ML injection 500 Units (COMPLETED) 818 (Given by Other - Provider: Anusha Jesus RN - Comment: Dr. Klein) 500 Units, Intracatheter, ONCE, Padmaja 11/20 at 0830, For 1 dose, IR Intra-procedure heparin sodium PF injection 5,000 Units (CANCELED) 09 (Canceled Entry - Provider: Debra Garner RN - Comment: pre dialysis)2117 (Given - Provider: Evelina Gant RN) 915 (Given - Provider: Vu granados RN) 5,000 Units, Subcutaneous, EVERY 12 HOUR S, First dose on Padmaja 11/20/15 at 0900, Check to make sure start date/time is 12-24 hours post op unless documented complication. Continue until discharge to home. HOLD if platelet count falls below 50% o f baseline or less than 100,000/??L and notify provider., Post-procedure iopamidol (ISOVUE-300) IV solution 61% 50 mL (COMPLETED) 814 (Given - Provider: Damion Castillo - Comment: ISOVUE 50 OPENED 20 UASED) 50 mL, Arterial, ONCE, Padmaja 11/20/15 at 0815, For 1 dose, IR Intra -procedure lisinopril (PRINIVIL,ZESTRIL) tablet 20 mg (CANCELED) 914 (Given - Provider: Vu Riggins RN) 20 mg, Oral, USER SPECIFIED (Once per da y on Tue), First dose on Tue11/21/15 at 0900, Take on MWFSu, non dialysis days, Post-procedure metoprolol (LOPRESSOR) tablet 100 mg (CANCELED) 2154 ( Given - Provider: Marla Deras RN) 0930 (Hold - Provider: Debra nowak RN - Reason: Other - Comment: pre dyalisis)2117 (Given - Provider: Evelina Gant RN) 15 (Given - Provider: Vu Riggins, LINDA) 100 mg, Oral, 2 TIMES DAILY, First dose on Tue11/19/15 at 2130, For Adults, Hold if HR < 60 or SBP<100 Take on , non dialysis days, Post-procedure simvastatin (ZOCOR) tablet 40 mg (CANCELED) 2154 (Give n - Provider: Marla Deras RN) 2117 (Given - Provider: Evelina Gant RN) 40 mg, Oral, EVERY EVENING, First dose on Tue11/19/15 at 2130, P ost-procedure sodium chloride (PF) 0.9% PF flush 3 mL (CANCELED) 224 5 (Not Given - Provider: Marla Deras RN - Reason: Patient sleeping) 0632 (Given - Provider: Evelina Gant RN)1745 (Canceled Entry - Provider: Debra Garner RN - Comment: at dialysis)2118 (Given - Provider: Evelina Gant RN) 0457 (Given - Provider: Evelina Gant RN) 3 mL, Intravenous, EVERY 8 HOURS, First dose on Tue11/19/15 at 2130, to lock peripheral IV dormant line. Also Ordered Q1H PRN, Post-procedure vitamin B complex with vitamin C (STRESS TAB) tablet 1 tablet (CANCELED) 2154 (Given - Provider: Marla Deras RN) 2117 (Given - Provider: Evelina Gant RN) 1 tablet, Oral, EVERY EVENING, First dos e on Tue11/19/15 at 2130, Post-procedure warfarin (COUMADIN) tablet 5 mg (COMPLETED) 1810 (Given - Provider: Debra Garner, RN) 5 mg, Oral, ONCE AT 6PM, Padmaja 11/20/15 at 1800, For 1 dose, INR = 1.10 PRN Medication Order 11/19/2015 11/20/2015 11/21/2015 250mL NaCl/2,500 Units heparin (CANCELED) 1804 (Given - Provider: Rober Saravia MD - Comment: irrigation) PRN, Starting 11/19/15 at 1804, Intra-procedure fentaNYL (SUBLIMAZE) injection 25-50 mcg (CANCELED) 758 (Given - Provider: Anusha Jesus, RN) 25-50 mcg, Intravenous, EVERY 2 MIN PRN, Starting 11/19/15 at 2146, other, acute pain, MAX cumulative dose = 250 mcg. Use Fentanyl initially, as a short acting agent for acute pain control. If insuff icient, or a longer acting agent is need ed, begin Morphine or Hydromorphone if ordered., PACU fentaNYL (SUBLIMAZE) injection 25-50 mcg (CANCELED) 758 (Given - Provider: Anusha Jesus, LINDA) 25-50 mcg, Intravenous, for 2 Minutes, E VERY 5 MIN PRN, Starting Padmaja 11/20/15 at 0740, severe pain, If inadequate response may repeat 25 mcg IV slowly Q 5 min PRN severe pain, Doses can be exceeded under direct oversight of patient by physician., IR Intra-procedure iopamidol 61% (ISOVUE 300) 50 mL + NaCl 0.9% 50 mL (CA NCELED) 1800 (Given - Provider: Rober Saravia MD - Comment: given into arteriovenous fistula) 35 ml given, PRN, Starting 11/19/15 at 1800, Intra-procedure lidocaine 1% 20 mL + sodium bicarbonate 8.4% 4 mL (CAN CELED) 1810 (Given - Provider: Rober Saravia MD) PRN, Starting 11/19/15 at 1810, Intra-procedure midazolam (VERSED) injection 0.5-1 mg (CANCELED) 075 (Given - Provider: Anusha Jesus, RN) 0.5-1 mg, Intravenous, for 1 Minutes, EV KAROL 4 MIN PRN, Starting Padmaja 11/20/15 at 0740, sedation, If inadequate response may repeat 0.5 mg IV slowly Q 4 minutes PRN sedation until desired response., Doses can be exceeded under direct oversight o f patient by physician., IR Intra-procedure oxyCODONE (ROXICODONE) immediate release tablet 5-10 mg 5-10 mg, Oral, EVERY 4 HOURS PRN, modera te to severe pain, Starting Tue11/19/15 at 2116, Hold while on CAMPAIGN CONSULTANT or with regular IV opioid dosing., Post-procedure sodium chloride 0.9% (bottle) irrigation (CANCELED) 16 34 (Given - Provider: Rober Saravia MD - Comment: PRN) PRN, Starting 11/19/15 at 1634, Intra-procedure documented in this encounter Care Teams Mixer Wet Pour Relationship Specialty Start Date End Date Preet Huff PCP - General 06/24/11 documented as of this encounter
--- OUTSIDE RECORDS SUMMARY | 2022-09-01 20:17 | XMS_ITS | Encounter Summary ---
:1965 Author Organization [place] Address [address] [facility] [place] [address] Care Team Providers Name Role Phone Preet Huff Primary Care Provider Reason for Visit Reason Onset Date Comments Vascular Access Problem 11/06/2015 Encounter Details Date Type Department Care Team Description 11/06/2015 Telephone [facility] Jaxon Saravia Vascular Access Problem [facility] [place] MD [address] [place] [address] [place] [id number] (Wo rk) Social History Tobacco Use Types Packs/Day Years Used Date Smoking Tobacco: Never Smokeless Tobacco: Never Alcohol Use Standard Drinks/Week Comments No 0 (1 standard drink = 0.6 oz pure alcoho l) Sex Assigned at Date Recorded Not on file documented as of this encounter Miscellaneous Notes Telephone Encounter - Roshni Cornejo RN - 11/06/2015 1:21 PM CST Call received from Chey Barba NP with [facility] regarding patient's left groin dialysis AV fistula. She reports that the hematoma noted at the end of September has increased in size today to approximately 8 inches by 11 inches and she hears a new click in addition to the bruit. Patient scheduled for US and appt with one of Dr. Saravia's covering partners tomorrow. Subsequently, Chey called back and reports that patient is instead going to go to [facility] ED today because she and a physician there at dialysis are concerned he may be dissecting. ED informed and contracts paralegal vascular MD informed of patient's impending arrival. Roshni Cornejo OFFICE BOOKKEEPER RIGGER documented in this encounter Plan of Treatment Not on filedocumented as of this encounter Visit Diagnoses Not on filedocumented in this encounter Care Teams Railcar Switchman Relationship Specialty Start Date End Date Preet Huff PCP - General 06/24/11 documented as of this encounter
--- OUTSIDE RECORDS SUMMARY | 2022-09-01 20:17 | XMS_ITS | Encounter Summary ---
:1965 Author Organization [place] Address [address] [place] [address] Care Team Providers Name Role Phone Preet Huff Primary Care Provider Reason for Visit Auth/Cert Specialty Diagnoses / Procedures Referred By Contact Refer red To Contact Surgery Diagnoses PSEUDOANEURYSM OF LEFT THIGH ARTERIOVENOUS FISTULA Sh Periop Services Procedures REVISION FISTULA ARTERIOVENOUS LOWER EXTREMITY [address] [place] [address] Phone: Referral ID Status Reason Start Date Expiration Date Visits Requ ested Visits Authorized [id number] 1 1 Encounter Details Date Type Department Care Team Description 11/19/2015 Anesthesia Event M [facility] Kamilah Den Ariane PeriOP Ser carlos enrique Shirley DO [address] ANESTHESIA [address] [place] [address] [place] [address] [phone] (Wo rk) Anesthesia Record Procedure Summary Procedure Name Responsible Anesthesia Start Anesthesia Stop Anesthesiologist Time Time EVACUATION OF LEFT Den Triana, 11/19/15 1601 07/25 1836 THIGH PSEUDOANEURYSM DO HEMATOMA , AV FISTULA THROMBECTOMY WITH INTRAOPERATICE ANGIOGRAM, GRAFT LIGATION (Left: Leg) Events Date Time Event Comment 11/19/2015 1601 An Start 1601 An Start Data 1605 An Induction 1607 An Intubation 1608 AN START SEVO 1624 AN INCISION 1809 AN END SEVO 1821 MD Present 1822 AN Extubation 1824 An Start Data 1827 an stop data 1836 An Stop Electronically s igned by Dona Meyer on November 19, 2015 6:36 PM 1844 Name Total fentanyl 50mcg/mL 75 mcg lidocaine 2% 100 mg midazolam 1mg/mL 1 mg phenylephrine 0.1mg/mL 50 mcg ondansetron 2mg/mL 4 mg propofol 10mg/mL 180 mg propofol infusion (mcg/kg/min) 411.95 mg succinylcholine 20 mg/mL 100 mg CeFAZolin (ANCEF) intermittent infusion 2 g 2 g ceFAZolin vial 1gm 1 g sodium chloride 0.9% 750 mL Agents Name O2 N2O Air Exp [...] Monserrat Blake RN Johns on, Lisa D, continuous linter drier operator Vascular Arteriovenous fistula; 08/03/12 1948 by 1120 [...] Aleta Taylor, Megan Ritter, 09/17/16; 1120 RN Peripheral IV 05/07/13; 1205; Left, 05/07/13 1205 by 11/21/15 1005 by Anterior; Lower forearm; Arianna Ennis, Vu Solitario (attempted Lt. A/C x 2); O, RN Chlorhexidine; None; 2; Tolerated well (Nurse to call anesthesia to start, veins small) Incision/Surgical Site 06/20/13; 1001; Left; 06/20/13 1001 by 1120 by Groin; 09/17/16; 1120 Macie Amin L isa D, LINDA Wood RNcontinuous linter drier operator Vascular Arteriovenous graft; 06/20/13 1646 by 06/25 1120 by Access Left Megan Ochoa RN [...] by 1120 by Upper; Thigh; 09/17/16; Esha Garzon RN John son, Lisa D, 1120 RN Negative Pressure Wound 06/07/14; 1446; MD; Leg; 06/07/14 1446 b y 11/21/15 1005 by Therapy Left; 11/21/15; 1005 Sb Davila, RN Mokaya, Wy cliffe O, RN Incision/Surgical Site 07/02/15; 0940; Left; 07/02/15 0940 by 1120 by Groin; 09/17/16; 1120 Don Raoms L isa D, Katherine, RN customer account specialist Left, Upper; Yes; 08/11/15 1514 by 09/17/16 1120 by 09/17/16; 1120 Megan Ochoa RN Incision/Surgical Site 08/13/15; 2000; Left; 08/13/152000 by 1121 by Leg; upper thigh x3 and Vicki Choe John son, Lisa D, one I&D site; 09/17/16; RN RN 1121 RETIRED: CVC Double 08/14/15; 1059; 08/14/15 1059 by 11/20/15 08 10 by Lumen Palindrome Precision H Blessing Ann, Anusha Diaz, Chronic Catheter; 14.5; RN [id number]; Tunneled; 0 cm; Right; Femoral; Dr. Klein; Sutured; Flouroscopy; IVC; Dr. Klein; Dialysis Incision/Surgical Site 08/14/15; 1215; Right; 08/14/15 1215 by 1 11/18/15 1121 by Groin; tunneled dialysis Jazmín Elizabeth RN Graham Megan webber, catheter; 09/17/16; 1121 continuous linter drier operator Vascular 11/19/15; Arteriovenous 11/19/15 0000 by 0 11/20/15 0231 by Access fistula; Left Evelina Gant, Evelina Case, LINDA Peripheral IV 11/19/15; 1252; 18 G; 11/19/15 1252 by 11/21/15 1005 by Right; Lower forearm; Lizabeth Hopper Mokaya, Wycliffe Median cubital vein RN O, RN (antecubital fossa); Chlorhexidine; Injectable; Tolerated well RETIRED ETT 11/19/15; 1607; Mask 11/19/15 1607 by 11/19/15 1 822 by Ventilation: Easy; Ease Dona Nelson Abby of Intubation: Easy; JUDITH Mendoza SENIOR IT ARCHITECT JUDITH Mendoza SENIOR IT ARCHITECT Airway Size: 8; Cuffed; Oral; Blade Type: [place]ley; Blade Size: 2; Place by: AM; Insertion Attempts: 1; Secured at (cm)to lip: 23 cm; Breath Sounds: Equal, clear and bilateral; End Tidal CO2: Present; Dentition: Intact; Grade View of Cords: 4 Closed/Suction Drain 11/19/15; 1750; 1; Left; 11/19/15 1750 by 0 11/21/15 1006 by Other (Comment) (Left Chang, Melissa Kessler, Anant granados, Vu groin); Bulb; 15 Greenlandic RN O, RN Incision/Surgical Site 11/19/15; 1812; Left; 11/19/15 1812 by 1121 by Leg; left upper leg Carolyn Garcia, Megan Ochoa, fistula incision; RN RN 09/17/16; 1121 documented in this encounter Social History Tobacco Use Types Packs/Day Years Used Date Smoking Tobacco: Never Smokeless Tobacco: Never Alcohol Use Standard Drinks/Week Comments No 0 (1 standard drink = 0.6 oz pure alcoho l) Sex Assigned at Date Recorded Not on file documented as of this encounter OR Notes Anesthesia Postprocedure Evaluation - Den Jones MD - 11/19/2015 9:02 PM CST Patient: Herminio Victor REVISION FISTULA ARTERIOVENOUS LOWER EXTREMITY (Left Leg) Additional InformationProcedure(s): EVACUATION OF LEFT THIGH PSEUDOANEURYSM HEMATOMA , AV FISTULA THROMBECTOMY WITH INTRAOPERATICE ANGIOGRAM, GRAFT LIGATION Diagnosis:PSEUDOANEURYSM OF LEFT THIGH ARTERIOVENOUS FISTULA Diagnosis Additional Information: No value filed. Anesthesia Type: General, ETT, RSI Note: Anesthesia Post Evaluation Patient location during evaluation: PACU Patient participation: Able to fully participate in evaluation Level of consciousness: awake and alert Pain management: adequate Airway patency: patent Anesthetic complications: no Cardiovascular status: acceptable Respiratory status: acceptable Hydration status: acceptable Comments: PACU hypertension noted. Reported by RN that resident wrote orders to treat it on the floor. I offered to treat it at the present time, but she was transferring him. PONV: none Last vitals: Filed Vitals: 11/19/15 1940 11/19/15 1950 11/19/152039 BP: 211/95 199/92 191/86 Pulse: 62 Temp: 35.8 ??C (96.4 ??F) Resp: 08 19 18 SpO2: 100% 100% 100% Electronically Signed By: Den Jones MD November 19, 2015 9:02 PM SURISED CONTAINER FILLER Anesthesia Preprocedure Evaluation - Den Triana DO - 11/19/2015 12:55 PM CST Anesthesia Evaluation . Pt has had prior anesthetic. Type: General and MAC No history of anesthetic complications ROS/MED HX ENT/Pulmonary: (+)sleep apnea, doesn't use CPAP , . . Neurologic: Cardiovascular: Comment: Pseudoaneurysm of thigh AVF (+) Dyslipidemia, hypertension----. Taking blood thinners : . . . :. . METS/Exercise Tolerance: Hematologic: (+) History of blood clots Anemia, History of Transfusion - Musculoskeletal: Comment: Legally blind GI/Hepatic: Renal/Genitourinary: (+) chronic renal disease, type: ESRD, Pt requires dialysis, type: Hemodialysis, Pt has no history of transplant, Endo: (+) type II DM Using insulin - not using insulin pump Diabetic complications: nephropathy neuropathyretinopathy, . Psychiatric: Infectious Disease: Malignancy: Other: Physical Exam Normal systems: cardiovascular, pulmonary and dental Airway Mallampati: II TM distance: >3 FB Neck ROM: full Dental Cardiovascular Pulmonary Anesthesia Plan ASA Score: 3 . Plan for General, ETT and RSI - with Intravenous induction. Maintenance will be Balanced. Anesthetic plan, risks, benefits and alternatives discussed with: patient or electronics parts sales representative. Routine analgesia and antiemetics . History & Physical Review History and physical reviewed and following examination; no interval change. . SURISED CONTAINER FILLER documented in this encounter Miscellaneous Notes Anesthesia Care Transfer Note - Dona Meyer APRN SENIOR IT ARCHITECT - 11/19/2015 6:35 PM CST Patient: Herminio Victor REVISION FISTULA ARTERIOVENOUS LOWER EXTREMITY (Left Leg) Additional [email or web address]@ Diagnosis: PSEUDOANEURYSM OF LEFT THIGH ARTERIOVENOUS FISTULA Diagnosis Additional Information: No value filed. Anesthesia Type: General, ETT, RSI Note: Airway :Face Mask Patient transferred to:PACU Comments: VSS, patent airway. Lethargic but exchanging. No c/o pain. Electronically Signed By: Dona Meyer APRN CRNA November 19, 2015 6:35 PM SURISED CONTAINER FILLER documented in this encounter Plan of Treatment Not on filedocumented as of this encounter Visit Diagnoses Not on filedocumented in this encounter Administered Medications Inactive Administered Medications - up to 3 most recent administrations Medication Order MAR Action Action Date Dose Rate Site 0.9% sodium chloride infusion New Bag 11/19/2015 4:01 PM PRESSURISED CONTAINER FILLER CONTINUOUS PRN, Anesthesia Intra-op, Starting on Tue11/19/15 at 1601, Until Tue11/19/15 at 1836 ceFAZolin (ANCEF) 1 g vial to attach to NS 100 Given 016 6:15 PM PRESSURISED CONTAINER FILLER 1 g ml bag for ADULT or 50 ml bag for PEDS Routine, Intravenous, PRN, Starting on Tue11/19/15 at 1815, Anesthesia Intra-op CeFAZolin (ANCEF) intermittent infusion 2 g Given 11/19/2015 4:15 PM PRESSURISED CONTAINER FILLER 2 g Routine, 2 g, Intravenous, PRE-OP/PRE-PROCEDURE, Starting on Tue11/19/15 at 1222, For 1 dose, Give first dose within 1 hour PRIOR to incision. If patient weight is greater than or equal to 120 kg change dose to 3 g., Indications: Perioperative Pharmacoprophylaxis, Pre-procedure fentaNYL (SUBLIMAZE) injection Given 11/19/2015 5:54 PM PRESSURISED CONTAINER FILLER 25 mcg PRN, moderate to severe pain, Starting on Tue11/19/15 at 1605, Anesthesia Intra-op Given 11/19/2015 4:05 PM PRESSURISED CONTAINER FILLER 50 mcg lidocaine injection 2% (MDV) Given 11/19/2015 4:05 PM PRESSURISED CONTAINER FILLER 100 mg PRN, Starting on Tue11/19/15 at 1605, Anesthesia Intra-op midazolam (VERSED) injection Given 11/19/2015 4:01 PM PRESSURISED CONTAINER FILLER 1 mg PRN, anxiety, Starting on Tue11/19/15 at 1601, Anesthesia Intra-op ondansetron (ZOFRAN) injection Given 11/19/2015 5:49 PM PRESSURISED CONTAINER FILLER 4 mg PRN, nausea, vomiting, Administer over 2-5 Minutes, Starting on Tue11/19/15 at 1749, Anesthesia Intra-op phenylephrine injection Given 11/19/2015 5:11 PM PRESSURISED CONTAINER FILLER 50 mcg PRN, Starting on Tue11/19/15 at 1711, Anesthesia Intra-op propofol (DIPRIVAN) infusion Rate/Dose 11/19/2015 5:08 30 mcg/kg/min 15.7 mL/hr Intravenous, CONTINUOUS PRN, Change PM PRESSURISED CONTAINER FILLER Starting on Tue11/19/15 at 1615, Anesthesia Intra-op Rate/Dose Change 11/19/2015 5:00 PM PRESSURISED CONTAINER FILLER 50 mcg/kg/min 26.1 mL/hr New Bag 11/19/2015 4:15 PM PRESSURISED CONTAINER FILLER 75 mcg/kg/min 39.2 mL/hr propofol (DIPRIVAN) injection 10 mg/mL v ial Given 11/19/2015 4:05 PM PRESSURISED CONTAINER FILLER 180 mg PRN, Starting on Tue11/19/15 at 1605, Anesthesia Intra-op succinylcholine (ANECTINE) injection Given 11/19/2015 4:05 PM PRESSURISED CONTAINER FILLER 100 mg PRN, Starting on Tue11/19/15 at 1605, Anesthesia Intra-op documented in this encounter Care Teams Pig Machine Supervisor Relationship Specialty Start Date End Date Preet Huff PCP - General 06/24/11 documented as of this encounter
--- OUTSIDE RECORDS SUMMARY | 2022-09-01 20:17 | XMS_ITS | Encounter Summary ---
:1965 Author Organization [place] Address [address] [facility] [place] [address] Care Team Providers Name Role Phone Preet Huff Primary Care Provider Reason for Visit Reason Onset Date Comments Patient Request 11/18/2015 RN at dialysis [facility] s tunneled cath not working well, low flow rates Encounter Details Date Type Department Care Team Description 11/18/2015 Telephone [facility] Arianna Kirkland RN Patient Request (RN at Vascular [facility] VASCULAR dialysis [facility] [address] tu nneled cath not [address] [place], [place] [address] [place] [address] rates) [phone] Social History Tobacco Use Types Packs/Day Years Used Date Smoking Tobacco: Never Smokeless Tobacco: Never Alcohol Use Standard Drinks/Week Comments No 0 (1 standard drink = 0.6 oz pure alcoho l) Sex Assigned at Date Recorded Not on file documented as of this encounter Miscellaneous Notes Telephone Encounter - Arianna Kirkland RN - 11/18/2015 2:39 PM CST RN at [facility] asked if tunneled cath cold be assessed and either revised or replaced while pt Is here tomorrow for surgical revision of AV fistula, As low flow rates, just in past few days, cannot get flow rates > 200. Confer[address] with Dr Klein who placed existing tunnel cath 08/14/15. States this pt has very limited options as this tunnel cath in pts right groin, But can inject catheter while here, and either revise or replace. Conferred with Dr Rani Garcia's equipment scheduler. She will discuss with transpo bringing pt tomorrow on timing of this & schedule with IR. CHOIR LEADER from dialysis faxed order, EPIC order will be placed. Edna Kirkland RN ER FLAP CUTTER documented in this encounter Plan of Treatment Not on filedocumented as of this encounter Visit Diagnoses Diagnosis Problem with dialysis access (H) - Prima ry documented in this encounter Care Teams Special Delivery Worker Relationship Specialty Start Date End Date Preet Huff PCP - General 06/24/11 documented as of this encounter
--- OUTSIDE RECORDS SUMMARY | 2022-09-01 20:17 | XMS_ITS | Encounter Summary ---
:1965 Author Organization [facility] Address [address] [place] [address] Care Team Providers Name Role Phone Preet Huff Primary Care Provider Reason for Visit Auth/Cert Specialty Diagnoses / Procedures Referred By Contact Refer red To Contact Surgery Diagnoses PSEUDOANEURYSM OF LEFT THIGH ARTERIOVENOUS FISTULA Sh Periop Services Procedures REVISION FISTULA ARTERIOVENOUS LOWER EXTREMITY [address] [place] [address] Phone: Referral ID Status Reason Start Date Expiration Date Visits Requ ested Visits Authorized [id number] 1 1 Encounter Details Date Type Department Care Team Description 11/19/2015 Surgery [facility] Rober Saravia EVACUATI ON OF LEFT THIGH [place] PeriOP MD Preet PSEUDOANEURYSM HEMATOMA , Services [address] AV FISTULA THROMBECTOMY [address] WITH INTRAOPERATICE [address] [place] [address] ANGIOGRAM, GRAFT LIGATION [place] [address] [phone] Surgery Details Date/Time Status Location OR Service Patient Case Class Case Tr auma Class Type Case? 11/19/15 3:00 Posted OR OR M General Same Day Outpatient in PM 40 Surgery Bed Panel 1 Procedure LRB Anes Op Region Wound Class Commen ts EVACUATION OF LEFT THIGH Left General Leg I-Clean EVACUATION OF LEFT THIGH PSEUDOANEURYSM HEMATOMA , PSEUDOANEURYSM HEMATOMA , AV FISTULA THROMBECTOMY A V FISTULA THROMBECTOMY WITH INTRAOPERATICE WITH INTRAOPERATICE ANGIOGRAM, GRAFT LIGATION ANGIOGRAM, GRAFT LIGATION Surgeon Surgeon Role Service Panel Rober Saravia [...] Sign Reading Time Taken Comments Blood Pressure 190/89 11/19/2015 12:49 PM [facility] left arm Pulse - - Temperature 36 ??C (96.8 ??F) 11/19/2015 12:49 PM [facility] Respiratory Rate 16 11/19/2015 12:49 PM [facility] Oxygen Saturation 100% 11/19/2015 12:49 PM [facility] Inhaled Oxygen Concentration - - Weight 87 kg (191 lb 14.4 oz) 11/19/2015 12:49 PM [facility] Height 162.6 cm (5' 4) 11/19/2015 12:49 PM [facility] Body Mass Index 32.92 11/19/2015 12:49 PM [facility] documented in this encounter Discharge Summaries Rober Saravia MD - 11/21/2015 7:50 AM CST [facility] Discharge Summary Julio Cesar Sandhu Date of [...] M, W, F, [place] (Non-dialysis days only) bisacodyl (DULCOLAX) 5 MG EC tablet Take 10 mg by mouth See Admin Instructions Take on M, W, F, [place] (Non-dialysis days only) Cholecalciferol (VITAMIN D3 PO) Take 2,000 Units by mouth daily Metoprolol Tartrate (LOPRESSOR PO) Take 100 mg by mouth 2 times daily In the AM and at Noon. Takes on M, W, F, [place] (Non-dialysis days only) warfarin (COUMADIN) 5 MG tablet Take 0.5 tablets by mouth daily. Qty: 90 tablet, Refills: 1 Associated Diagnoses: Renal dialysis device, implant, or graft complication b bdouuoe-F-yrhyo acid (NEPHROCAPS) 1 MG capsule Take 1 [...] Image Results From This Hospital Stay (For Non-EPIC Providers): Results for orders placed or performed during the hospital encounter of 11/19/15 XR Surgery NIHARIKA L/T 5 Min Fluoro w Stills Narrative This Impression exam was marked as non-reportable because it will not be read by a radiologist or a [facility] non-radiologist provider. IR CVC Tunnel Revision Right [...] Over the wire, an AngioDynamics Duraflow 15 Croatian 31 cm tip to cuff dialysis catheter [...] wire and replaced with a Duraflow 15 Croatian 31 cm tip to cuff dialysis catheter which was placed in the inferior vena cava. TEJAS KLEIN MD Most Recent Lab Results In [facility] (For Non-[facility] Providers): Most Recent 3 CBC's: Recent Labs [...] Assay Range Canceled, Test credited CALLED FIDE Correa AT 0928 Vi Rocha MD Resident Staff: Agree with above. Will plan redo left thigh access in about three weeks after thigh wound healed. Rober Saravia MD [facility] documented in this encounter Medications at Time [...] x 20mg tablet = 40mg ) b iulrhhn-U-mchbl acid Take 1 capsule by 0 03/04/2016 [...] as of this encounter Progress Notes Debra Garner, LINDA - 11/20/2015 7:55 PM CST Vs no [...] done and questions answered. See flowsheet in [employer]Com for further details. RO log completed Prime given: NS Saline double clamped and Arterial/Venous parameters set. Patient transported via bed to the dialysis unit Aseptic prep done for both on/off. Transducer connectors checked q15 minutes with vital sign check : Report received from: Robin Garner RN Report given to: Jhon Edgar RNcrowning hammer operator [facility] [place] Hepatitis Antigen 07/13/15 Hepatitis Antibody immune Job Christina MD - 11/20/2015 3:18 PM CST Inpatient [...] none Review of Systems: Medications: EPO dose: 30121 units Zemplar: none IV Fe: none Physical [...] - 67 - - - - 11/19/15 2230 (!) 223/103 mmHg - - - - - - - 11/19/15 2202 (!) 211/107 mmHg - - 71 - - - - 11/19/157 180/90 mmHg 98.3 ??F (36.8 ??C) Oral [...] - 17.7 g/dL Final Job Her MD IN DRIER Mindy Ochoa - 11/20/2015 1:46 PM CST [facility] Progress Note [facility] 33 Pt was not in room when stopped; spoke with [facility] who confirmed pt was in dialysis at the moment. will attempt to visit later this afternoon or tomorrow at the latest. Mindy Rioslain Water Fabricator Operator Pager [phone] Vi Artis MD - 11/20/2015 11:21 AM CST Vascular Surgery Update Dialysis catheter exchanged this AM Plan to dialyze today Surgical drain likely to be removed tomorrow AM Will plan to discharge tomorrow AM Will need to set up ride Start coumadin tonight Vi Benjamin. MD Aj Resident Pager [phone] Debra Sher RN - 11/20/2015 11:05 AM CST Called consulting service to see if Nephrology had been contacted, they were paged at [phone] this morning, waiting for patient to be [...] for procedural details. Provider name: Tejas Klein Horse Wrangler(s):None Anusha Napoles RN - 11/20/2015 8:00 AM CST Interventional Radiology Intra-procedural Nursing Note Patient Name: Julio Cesar Sandhu Today's Date: November 20, 2015 Start Time: 0800 End of procedure time: 0815 Procedure: CVC Tunnel Placement Report given to: Kitty RN @ 0829 Time pt departs: 0829 with [place] risk assessment 0-1 0800- Pt transferred to procedure table into supine position. Skin prepped with chloroprep (CHG 2%) and draped.See LDA flowsheet, MAR, VS flowhsheet for additional information. Dr. Klein notified pt ate two hours ago and creat 10.0. No new orders. 0810- Angiodynamcis Duraflow 2 [id number] hemodialysis catheter placed by Dr. Klein REF [id number] EXP 2016-10 0821- Hemastasis achieved, site covered with sterile disc and 4x4 tegaderm. No oozing, bleeding, or hematoma noted to site. Pt educated on care site and importance to lay flat until further instructed. 0829-Pt transferred to 3rd floor via stretcher. No s/s acute distress noted. On 2LNC Other Notes: Anusha Jesus RN,BSN IN DRIER Rober Saravia MD - 11/20/2015 7:11 AM [...] prn Vi Rocha Surgery Resident, PGY4 Pager [phone] Staff: As above. Minimal out BRITT. Will need revision of right groin TC today. Needs Coumadin for catheter to stay open. Once left thigh heals will need new graft placement. Rober Saravia MD IN DRIER Kathia Young, LINDA - 11/19/2015 8:50 PM CST Arrived in observation at 2002, orders for pt to be inpatient. Pt placement notified. Will be transferring to station 33 via cart. Spoke with LINDA Gutiérrez and report given. BP remains elevated, will receive scheduled medications when transferred. Dressing CDI, BRITT drain to bulb suction with serosanguineous drainage. No hernandez. Sats stable on 1 LPM. IN DRIER Tracey Estrada - 11/19/2015 12:13 PM CST Admission medication history interview status for the 11/19/2015 admission is complete. See [facility] admission navigator for prior to admission medications Medication history source reliability:Good Medication history interview source(s):Family (Aunt: Thelma, via phone) Medication history resources (including written lists, pill bottles, clinic record):Phone call with Aunt (Thelma: [phone]) Primary pharmacy.[facility] [phone] Additional medication history information not noted on [facility] med list :None Time spent in this [...] at pm Yes Alejandro Emerson MD b qytghph-Y-bzwuz acid (NEPHROCAPS) 1 MG capsule Take 1 capsule by mouth daily (with dinner) 11/18/2015 at pm Yes Reported, Patient simvastatin (ZOCOR) 40 MG tablet Take 40 mg by mouth every evening 11/18/2015 at pm Yes Reported, Patient [place] documented in this encounter H&P Notes Radha York - 11/17/2015 10:52 AM CST This note is for the purpose of making the H&P performed in the clinic within the last 30 days available in the hospital surgical encounter. [facility] Source Note - Everardo Akbar MD - 11/06/2015 12:18 PM [facility] History Chief Complaint: L groin swelling HPI [...] in OR on 08/13/2015. Seen by Dr. Saarvia in clinic mid-September. Had a previously diagnosed [...] while waiting for family to arrive from [place] to come pick him up. Diagnosis: (1. 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 (N18.6) End stage renal disease (HCC) 3. (Z79.01) USP current use of anticoagulant therapy Scribe Disclosure: I, Martin Dykes, am serving as a scribe at 12:19 PM on 11/06/2015 to document services personally performed by Everardo Akbar MD, based on my observations and the provider's statements to me. 11/06/2015 EMERGENCY DEPARTMENT Everardo Akbar MD 11/06/15 1727 IN DRIER documented in this encounter Consult Notes Job [...] Hyperkalemia ??? ESRD (end stage renal disease) ([facility]) dialysis T--Tue ??? Blind ??? DVT (deep venous thrombosis) ([facility]) ??? Orthostasis ??? Diabetes mellitus (HCC) ??? Syncope ??? Hypertension ??? A-V fistula ([facility]) left forearm ??? Hyperlipemia ??? Cognitive deficits ??? Anemia ??? Sleep apnea CPAP ??? Chronic in-center hemodialysis status ([facility]) ??? Hyperlipidaemia PSH: Past Surgical History Procedure [...] Saravia MD; Location: [facility] OR MEDICATIONS: ??? heparin Lock (1000 units/mL High concentration) 3 mL Intracatheter Once ??? heparin Lock (1000 units/mL High concentration) 3 mL Intracatheter Once ??? B jobpweg-N-tibqe acid 1 capsule Oral Daily with supper [...] with UF and HD. Job Her MD [facility] Consult[facility] - Nephrology Office Pager: [phone] IN D[place] documented in this encounter Nursing Notes Marissa Pantoja RN - 11/20/2015 10:40 AM CST Post op call not done as patient was admitted. IN DRIER Jovana Peterson RN - 11/19/2015 7:53 PM [...] ROXANNE Villaseñor on cart to OBS unit. IN [facility] documented in this encounter Miscellaneous Notes Plan of Care - Vu Riggins RN - 11/21/2015 10:07 AM CST Problem: Individualization Goal: Patient Preferences Outcome: Improving Discharge instructions reviewed with pt's mother on the phone, all questions addressed. IN DRIER Plan of Care - Evelina Gant RN - 11/21/2015 6:43 AM CST Problem: Goal Outcome Summary Goal: Goal Outcome Summary Outcome: No Change VSS. Afebrile. LS clear. BS active, reports passing flatus. Large appetite. Denies nausea. CMS intact. Pulses palpable. Incision c/d/i. CVC c/d/i. 10cc of dark red drainage via BRITT. Slept between cares. IN DRIER Plan of Care - Debra Garner RN [...] with a ride service to his residence. [place] Pharmacy-Anticoagulation Service - Mirlande Oconnell [facility] - 11/20/2015 2:51 PM CST Clinical Pharmacy - Warfarin Dosing Consult Pharmacy has been consulted to manage this patient???s warfarin therapy. Indication: Other - specify in comments (To Maintain Dialysis Catheter Access) Therapy Goal: INR 2-3 Warfarin Prior to Admission: Yes Warfarin BOAT FINISHER Regimen: 5mg daily Significant drug interactions: simvastatin [...] if the warfarin goals change. Mirlande Oconnell, PharmD. Electronically signed by Mirlande Oconnell [facility] at 11/20/2015 2:52 PM [facility] Utilization Review - Taran Jean-Baptiste MD - 11/20/2015 2:06 PM CST Concurrent stay review; Secondary Review Determination [facility] Under the authority of the Utilization Management [...] section 70.4. Sincerely, TARAN JEAN-BAPTISTE MD System Wall Taper HelperGlue Jointer Feeder [facility]. IN DRIER Plan of Care - Evelina Gant RN - 11/20/2015 5:27 AM CST Problem: Goal Outcome Summary Goal: Goal Outcome Summary Outcome: No Change HTN, metop given. SBP remains below 180s. Afebrile. BS hypoactive, denies passing flatus. Large appetite. Denies nausea. No bruit or thrill present, MD aware. CMS intact. Pulses palpable. Incision CDI.Slept between cares. IN DRIER Provider Notification - Evelina Gant RN - 11/20/2015 1:14 AM CST Spoke with Dr. Reynoso regarding No bruit or thrill present. No new orders obtained. Will assess in am. IN DRIER Provider Notification - Evelina Gant RN - 11/20/2015 12:53 AM CST Spoke with Dr. Hernandez regarding HTN. Orders obtained for PRN Metop and enalapril, see mar. IN DRIER Plan of Care - Marla Deras RN - 11/19/2015 11:44 PM CST Problem: Goal Outcome Summary Goal: Goal Outcome Summary Outcome: No Change Arrived to unit approx 2130. A&O. BP elevated, scheduled metoprolol given, decreased to 169/82 at 2330. BRITT drain patent w/ dark red output. Tolerated regular diet. BS hypoactive. Denies pain, denies nausea. Pulses 2+ bilaterally. Dressing C/D/I. IN DRIER Brief Op Note - Vi Rocha MD - 11/19/2015 6:32 PM CST [facility] Brief Operative Note Pre-operative diagnosis: PSEUDOANEURYSM [...] to be evacuated. The graft was ligated. IN DRIER Op Note - Rober Saravia MD - [...] portion of graft. SURGEON: Rober Saravia MD BYPRODUCTS OPERATOR: Vi Rocha MD ([facility] surgery resident) ANESTHESIA: General. PREOPERATIVE MEDICATIONS: Ancef 2 grams IV. INDICATIONS: Julio Cesar Sandhu is on chronic hemodialysis at the [place] [facility]. He hasno upper extremity access [...] was 75 mL. ROBER SARAVIA MD MT: [id number] Name: JULIO CESAR SANDHU MRN: [id number] Account: [id number] : 1965 Procedure Date: 11/19/2015 Document: [id number] cc: [facility] Saravia MD IN DRIER documented in this encounter Plan of Treatment Not on filedocumented as of this encounter Procedures Procedure Name Priority Date/Time Associated Diagnosis Comme nts INR Routine 11/21/2015 7:09 Results for this AM [facility] procedure are i n the results section. GLUCOSE Routine 11/21/2015 7:09 Results for this AM [facility] procedure are i n the results section. INR Routine 11/20/2015 11:30 Results for this AM [facility] procedure are i n the results section. BASIC METABOLIC PANEL Routine 11/20/2015 11:30 Re sults for this AM [facility] procedure are i n the results section. CBC WITH PLATELETS Routine 11/20/2015 11:30 Resul ts for this AM [facility] procedure are i n the results section. IR CVC TUNNEL Routine 11/20/2015 8:28 Results for this REVISION RIGHT AM [facility] procedure are in the results section. XR SURGERY NIHARIKA Routine 11/19/2015 6:15 Results f or this FLUORO LESS THAN 5 PM [facility] procedure are in MIN W STILLS the results section. REVISION, 11/19/2015 4:01 clotted left leg AV ARTERIOVENOUS PM [facility] graft and FISTULA, LOWER pseudoaneurysm EXTREMITY EKG 12-LEAD, TRACING Routine 11/19/2015 12:50 Res ults for this ONLY PM [facility] procedure are i n the results section. INR STAT 11/19/2015 12:33 Results for this PM [facility] procedure are i n the results section. BASIC METABOLIC PANEL STAT 11/19/2015 12:33 Re sults for this PM [facility] procedure are i n the results section. CBC WITH PLATELETS STAT 11/19/2015 12:33 Resul ts for this PM [facility] procedure are i n the results section. documented in this encounter Results Glucose (11/21/2015 7:09 AM [facility]) athologist Signature Glucose 92 70 - 99 [place] mg/dL [facility] Specimen Anatomical Collection Method Collection Time Receive d Time (Source) Location / / Volume Laterality Blood specimen 11/21/2015 7:09 AM 016 7:22 (specimen) [facility] AM [facility] Rober Saravia MD LAB - BLOOD ORDERABLES Performing Organization Address City/State/ZIP Code Phon e Number [facility] [address] [place] [address] [phone] [place] [address] [place] [address], [place] [phone] INR (11/21/2015 7:09 AM [facility]) athologist Signature INR 1.09 0.86 - 1.14 [facility] Specimen Anatomical Collection Method Collection Time Receive d Time (Source) Location / / Volume Laterality Blood specimen 11/21/2015 7:09 AM 016 7:22 (specimen) [facility] [place] AM [facility] Vi Rocha MD LAB - BLOOD ORDERABLES Performing Organization Address City/State/ZIP Code Phon e Number [facility] [address] [place] [address] [phone] [facility] [address] [place] [address], [place] [phone] INR (11/20/2015 11:30 AM [facility]) athologist Signature INR 1.10 0.86 - 1.14 [facility] Specimen Anatomical Collection Method Collection Time Receive d Time (Source) Location / / Volume Laterality Blood specimen 11/20/2015 11:30 6 (specimen) AM [facility] 12:13 PM [place] Rober Saravia MD LAB - BLOOD ORDERABLES Performing Organization Address City/State/ZIP Code Phon e Number [facility] [address] [phone] [facility] [address] [address], [place] [phone] (ABNORMAL) CBC with platelets (11/20/2015 11:30 AM [facility]) Analysis Performed At Patho logist Time Signature WBC 4.7 4.0 - 11.0 [place] 10e9/L [facility] RBC Count 3.54 (L) 4.4 - 5.9 [place] 10e12/L [facility] Hemoglobin 9.0 (L) 13.3 - [place] 17.7 g/dL [facility] Hematocrit 28.3 (L) 40.0 - [place] 53.0 % [facility] MCV 80 78 - 100 [facility] MCH 25.4 (L) 26.5 - [place] 33.0 pg [facility] MCHC 31.8 31.5 - [place] 36.5 g/dL [facility] RDW 16.3 (H) 10.0 - [place] 15.0 % [facility] Platelet Count 140 (L) 150 - 450 [place] 10e9/L [facility] Specimen Anatomical Collection Method Collection Time Receive d Time (Source) Location / / Volume Laterality Blood specimen 11/20/2015 11:30 6 (specimen) AM [facility] 12:13 PM [facility] [facility] Rober Saravia MD LAB - BLOOD ORDERABLES Performing Organization Address City/State/ZIP Code Phon e Number [facility] [address] [phone] [facility] [address] [address], [place] [phone] (ABNORMAL) Basic metabolic panel (11/20/2015 11:30 AM [place] [facility]) Patholo gist Method Time Signature Sodium 132 (L) 133 - 144 [place] mmol/L [facility] Potassium 4.9 3.4 - 5.3 [place] mmol/L [facility] Chloride 97 94 - 109 [place] mmol/L [facility] Carbon Dioxide 26 20 - 32 [place] mmol/L [facility] Anion Gap 9 3 - 14 [place] mmol/L [facility] Glucose 133 (H) 70 - 99 [place] mg/dL [facility] Urea Nitrogen 52 (H) 7 - 30 [place] mg/dL [facility] Creatinine 11.80 (H) 0.66 - [place] 1.25 mg/dL [facility] GFR Estimate 5 (L) >60 [place] mL/min/1.[address] Comment: Non GFR Calc GFR Estimate If Black 5 (L) >60 mL/min/1.7m2 F [facility] Comment: GFR Calc Calcium 7.9 (L) 8.5 - 10.1 mg/dL [facility] Specimen Anatomical Collection Method Collection Time Receive d Time (Source) Location / / Volume Laterality Blood specimen 11/20/2015 11:30 6 (specimen) AM [facility] 12:13 PM [facility] Rober Saravia MD LAB - BLOOD ORDERABLES Performing Organization Address City/State/ZIP Code Phon e Number [facility] [address] [phone] [facility] [address] [address], [place] [phone] IR CVC Tunnel Revision Right (11/20/2015 8:28 AM [facility]) Anatomical Region Laterality Modality Chest Radio Fluoroscopy Specimen (Source) Anatomical Location Collection Method / Collectio n Time Received Time / Laterality Volume Impressions 11/20/2015 4:34 PM [facility] IMPRESSION: The existing right femoral tunneled dialysis catheter was occluded with thrombus within both ports . The catheter was removed over a wire and replaced with a Duraflow 15 Croatian 31 cm tip to cuff dialysis catheter which was placed in th e inferior vena cava. TEJAS KLEIN MD Narrative 11/20/2015 4:34 PM [place] INTERVENTIONAL RADIOLOGY CVC TUNNEL REVISION RIGHT ??11/20/2015 8:28 AM HISTORY: 50-year-old male undergoing fis fredo revision with a right femoral tunneled dialysis catheter in [place] which has been functioning poorly. The patient [...] the wire, an AngioDyna mics Duraflow 15 Croatian 31 cm tip to cuff dialysis catheter [...] The patient was monitored by radiology n jannaing staff under my supervision and remained stable througho ut the study. Procedure Note Tejas Klein MD - 11/20/2015Formatti ng of this note might be different from the original. INTERVENTIONAL RADIOLOGY CVC TUNNEL REVI NIEVES RIGHT 11/20/2015 8:28 AM HISTORY: 50-year-old male undergoing fis fredo revision with a right femoral tunneled dialysis catheter in [facility] which has been functioning poorly. The patient [...] the wire, an AngioDyna mics Duraflow 15 Croatian 31 cm tip to cuff dialysis catheter [...] wire and replaced with a Duraflow 15 Croatian 31 cm tip to cuff dialysis catheter which was placed in th e inferior vena cava. TEJAS KLEIN MD Rober Saravia MD IMG IR ORDERABLES XR Surgery NIHARIKA L/T 5 Min Fluoro w Stills (11/19/2015 6:15 PM [facility]) Specimen (Source) Anatomical Location Collection Method / Collectio n Time Received Time / Laterality Volume Impressions RADIANT - 11/19/2015 6:59 PM [facility] exam was marked as non-reportable because it will not be read by a radiologist or a [facility] non-radiologis t provider. Narrative RADIANT - 11/19/2015 6:59 PM [place] This Rober Saravia MD IMG DIAGNOSTIC IMAGING ORDER NADIA Performing Organization Address City/State/ZIP Code Phon e Number [facility] E[facility] 12-lead, tracing only (11/19/2015 12:50 PM [facility]) [facility] gist Method Time Signature Interpretation ECG Click View RADIOLOGY Image link RESULTS to view waveform and result Specimen (Source) Anatomical Collection Method Collection Time Re ceived Time Location / / Volume Laterality 11/19/2015 12:50 PM [facility] Den Triana DO ECG ORDERABLES Performing Organization Address City/State/ZIP Code Phon e Number RADIOLOGY RESULTS INR (11/19/2015 12:33 PM [facility]) P athologist Signature INR 1.05 0.86 - 1.14 [facility] Specimen Anatomical Collection Method Collection Time Receive d Time (Source) Location / / Volume Laterality Blood specimen 11/19/2015 12:33 6 (specimen) PM [facility] 12:47 PM [facility] Rober Saravia MD LAB - BLOOD ORDERABLES Performing Organization Address City/[facility]/ZIP Code Phon e Number [facility] [address] [phone] [facility] [address] [address], [place] [phone] (ABNORMAL) CBC with platelets (11/19/2015 12:33 PM [facility]) Analysis Performed At Patho logist Time Signature WBC 3.1 (L) 4.0 - 11.0 [place] 10e9/L [facility] RBC Count 3.81 (L) 4.4 - 5.9 [place] 10e12/L [facility] Hemoglobin 9.5 (L) 13.3 - [place] 17.7 g/dL [facility] Hematocrit 30.5 (L) 40.0 - [place] 53.0 % [facility] MCV 80 78 - 100 [facility] MCH 24.9 (L) 26.5 - [place] 33.0 pg [facility] [facility] MCHC 31.1 (L) 31.5 - [place] 36.5 g/dL [facility] RDW 16.5 (H) 10.0 - [place] 15.0 % [facility] Platelet Count 148 (L) 150 - 450 [place] 10e9/L [facility] Specimen Anatomical Collection Method Collection Time Receive d Time (Source) Location / / Volume Laterality Blood specimen 11/19/2015 12:33 6 (specimen) PM [facility] 12:47 PM [facility] Rober Saravia MD LAB - BLOOD ORDERABLES Performing Organization Address City/[facility]/ZIP Code Phon e Number M [facility] [address] [id number] [facility] [address] [id number], [place] [phone] (ABNORMAL) Basic metabolic panel (11/19/2015 12:33 PM [facility]) [facility] Method Time Signature Sodium 131 (L) 133 - 144 [place] mmol/L [facility] Potassium 3.9 3.4 - 5.3 [place] mmol/L [facility] Chloride 95 94 - 109 [place] mmol/L [facility] Carbon Dioxide 25 20 - 32 [place] mmol/L [facility] Anion Gap 11 3 - 14 [place] mmol/L [facility] Glucose 82 70 - 99 [place] mg/dL [facility] Urea Nitrogen 40 (H) 7 - 30 [place] mg/dL [facility] Creatinine 10.00 (H) 0.66 - [place] 1.25 mg/dL [facility] GFR Estimate 5 (L) >60 [place] mL/min/1.[address] Comment: Non GFR Calc GFR Estimate If Black 7 (L) >60 mL/min/1.7m2 F [facility] Comment: GFR Calc Calcium 8.8 8.5 - 10.1 mg/dL [facility] Specimen Anatomical Collection Method Collection Time Receive d Time (Source) Location / / Volume Laterality Blood specimen 11/19/2015 12:33 6 (specimen) PM [facility] 12:47 PM [facility] Rober Saravia MD LAB - BLOOD ORDERABLES Performing Organization Address City/State/ZIP Code Phon e Number M [facility] [address] [address] [facility] [address] [address], [place] [phone] documented in this encounter Visit Diagnoses Not on filedocumented in this encounter Administered Medications Inactive Administered Medications - up to 3 most recent administrations Medication Order MAR Action Action Date Dose Rate Site 250mL NaCl/2,500 Units Given 11/19/2015 6:04 PM 200 mLs Other (see heparin [facility] comments) PRN, Starting on Tue11/19/15 at 1804, Intra-procedure iopamidol 61% (ISOVUE 300) Given 11/19/2015 6:00 PM 35 ml given Other (see 50 mL + NaCl 0.9% 50 mL [facility] comments) PRN, Starting on Tue11/19/15 at 1800, Intra-procedure lidocaine 1% 20 mL + Given 11/19/2015 6:10 PM 30 mLs Operative Site/Surgical sodium bicarbonate 8.4% 4 [facility] Site mL PRN, Starting on Tue11/19/15 at 1810, Intra-procedure sodium chloride 0.9% Given 11/19/2015 4:34 PM 1,000 mLs Operative (bottle) irrigation [facility] Site/Surgical S ite PRN, Starting on Tue11/19/15 at 1634, Intra-procedure documented in this encounter Active and Recently Administered Medications Times are shown in [facility]. Scheduled Medication Order 11/19/2015 11/20/2015 11/21/2015 0.9% sodium chloride BOLUS (COMPLETED) 1 349 (New Bag - Provider: Jazmín Soriano, RN, RN) Hemodialysis Machine, 250 mL, ONCE, Padmaja 11/20/15 at 1230, For 1 dose, For Dialyzer Prime. (In Dialyzer), Dialysis 0.9% sodium chloride BOLUS (COMPLETED) 1 348 (New Bag - Provider: Jazmín Soriano, RN, RN) Intravenous, 250-1,000 mL, ONCE IN DIALY SIS, Padmaja 11/20/15 at 1230, For 1 dose, For patient prime during dialysis, Dialysis B obsbfmr-R-qvphk acid (NEPHROCAPS) capsule 1 mg (CANC ELED) 2154 (Given - Provider: Marla Deras, LINDA) 1811 (Given - Provider: Debra arellano, LINDA) 1 mg (1 capsule), Oral, DAILY WITH SUPPE R, First dose on Tue11/19/15 at 2145, Post-procedure bisacodyl (DULCOLAX) EC tablet 10 mg (CANCELED) 914 (Given - Provider: Vu Riggins, LINDA) 10 mg, Oral, USER SPECIFIED (Once per da y on Sun Tue), First dose on Tue11/21/15 at 0900, Trake on MWFSu, nondialysis days. DO NOT CRUSH., Post-procedure calcium acetate (PHOSLO) capsule 1,334 mg (CANCELED) 2 155 (Given - Provider: Marla Deras RN) 1741 (Canceled Entry - Provider: Debra Garner RN - Comment: at dialysis)1810 (Given - Provider: Debra Garner RN)1813 (Canceled Entry - Provider: Debra Garner RN - Comment: at procedure) 0916 (Given - Provider: Vu Riggins, LINDA) 1,334 mg, Oral, 4 TIMES DAILY WITH MEALS & NIGHTLY, First dose on 11/19/15 at 2200, Post-procedure 2118 (Given - Provider: Elva Scott) CeFAZolin (ANCEF) intermittent infusion 2 g (COMPLETED ) 161 (Given - Provider: Dona Meyer APRN CRNA) 2 g, Intravenous, PRE-OP/PRE-PROCEDURE, Starting 11/19/15 at 1222, For 1 dose, Give first dose within 1 hour PRIOR to incision. If patient weight is greater than or equal to 120 kg change dose to 3 g ., Indications: Surgical Prophylaxis, Pre-procedure CeFAZolin (ANCEF) intermittent infusion 2 g (COMPLETED) 08 (Given - Provider: Anusha Jesus RN) 2 g, Intravenous, ONCE, Padmaja 11/20/15 at 0 815, For 1 dose, Indications: Surgical Prophylaxis, IR Intra-procedure cholecalciferol (vitamin D) tablet 2,000 Units (CANCELED) 181 (Given - Provider: Debra Garner RN - Comment: procedure tday) 0916 (Given - Provider: Vu Riggins RN) 2,000 Units, Oral, DAILY, First dose on Padmaja 11/20/15 at 0900, Pos t-procedure heparin 100 UNIT/ML injection 500 Units (COMPLETED) 0818 (Given by Other - Provider: Anusha Jesus RN - Comment: Dr. Klein) 500 Units, Intracatheter, ONCE, Padmaja 11/20 at 0745, For 1 dose, IR Intra-procedure heparin 100 UNIT/ML injection 500 Units (COMPLETED) 0819 (Given by Other - Provider: Anusha Jesus RN - Comment: Dr. Klein) 500 Units, Intracatheter, ONCE, Padmaja 11/20 at 0830, For 1 dose, IR Intra-procedure heparin sodium PF injection 5,000 Units (CANCELED) 899 (Canceled Entry - Provider: Debra Garner RN - Comment: pre dialysis)2117 (Given - Provider: Evelina Gant, RN) 915 (Given - Provider: Vu granados [...] ( Given - Provider: Marla Deras RN) 929 (Hold - Provider: Debra nowak RN - Reason: Other - Comment: pre dyalisis)2117 (Given - Provider: Evelina Gant, LINDA) 15 (Given - Provider: Vu Riggins RN) 100 mg, Oral, 2 TIMES DAILY, First dose on Tue11/19/15 at 2130, For Adults, Hold if HR < 60 or SBP<100 Take on F [place], non dialysis days, Post-procedure simvastatin (ZOCOR) tablet [...] mg (COMPLETED) 1810 (Given - Provider: Debra Garner RN) 5 mg, Oral, ONCE AT 6PM, Padmaja 11/20/15 at 1800, For 1 dose, INR = 1.10 PRN Medication Order 11/19/2015 11/20/2015 11/21/2015 250mL NaCl/2,500 Units heparin (CANCELED) 180 (Given - Provider: Rober Saravia MD - Comment: irrigation) PRN, Starting Tue11/19/15 at 1804, Intra-procedure fentaNYL (SUBLIMAZE) injection 25-50 mcg (CANCELED) 0759 (Given - Provider: Anusha Jesus RN) 25-50 mcg, Intravenous, EVERY 2 MIN PRN, Starting Tue11/19/15 at 2146, other, acute pain, MAX cumulative dose = 250 mcg. Use Fentanyl initially, as a short acting agent for acute pain control. If insuff icient, or a longer acting agent is need ed, begin Morphine or Hydromorphone if ordered., PACU fentaNYL (SUBLIMAZE) injection 25-50 mcg (CANCELED) 0759 (Given - Provider: Anusha Jesus, RN) 25-50 mcg, Intravenous, for 2 Minutes, [...] Intra-procedure midazolam (VERSED) injection 0.5-1 mg (CANCELED) 0759 (Given - Provider: Anusha Jesus, RN) 0.5-1 [...] Starting Tue11/19/15 at 2116, Hold while on JIG[place]YER or with regular IV opioid dosing., Post-procedure sodium chloride 0.9% (bottle) irrigation (CANCELED) 16 34 (Given - Provider: Rober Saravia MD - Comment: PRN) PRN, Starting Tue11/19/15 at 1634, Intra-procedure documented in this encounter Care Teams Grader Operator Relationship Specialty Start Date End Date Preet Huff PCP - General 06/24/11 documented as of this encounter
--- OUTSIDE RECORDS SUMMARY | 2022-09-01 20:18 | XMS_ITS | Encounter Summary ---
:1965 Author Organization [facility] Address [address] [place] [address] Care Team Providers Name Role Phone Preet Huff Primary Care Provider Encounter Details Date Type Department Care Team Description 09/24/2015 Hospital Encounter [facility] Jaxon Saravia RD (end stage renal disease) on dialysis; [facility] MD Preet Pseudoaneurysm of AV hemodialysis fistul a, subsequent encounter [address] [place] [address] [address] [address] [phone] Social History Tobacco Use Types Packs/Day Years Used Date Smoking Tobacco: Never Smokeless Tobacco: Never Alcohol Use Standard Drinks/Week Comments No 0 (1 standard drink = 0.6 oz pure alcoho l) Sex Assigned at Date Recorded Not on file documented as of this encounter Medications at Time of Discharge Medication Sig Dispensed Refills Start Date End Date Cholecalciferol (VITAMIN Take 2,000 Units by 0 D3 PO) mouth every evening LISINOPRIL PO Take 40 mg by mouth 0 daily (Takes 2 x 20mg tablet = 40mg ) b iwprbxj-H-ehgwv acid Take 1 capsule by 0 03/04/2016 (NEPHROCAPS) 1 MG mouth daily (with capsule dinner) calcium acetate (PHOSLO) Take 1,334 mg by 0 11/19/2015 667 MG CAPS mouth 3 times daily (with meals) simvastatin (ZOCOR) 40 Take 40 mg by mouth 0 12/16/2017 MG tablet every evening bisacodyl (DULCOLAX) 5 Take 10 mg by mouth 0 12/16/2017 MG EC tablet See Admin Instructions Take on Once Daily on M, W, F, [place] (Non-dialysis days only) calcium acetate (PHOSLO) Take 667 mg by mouth 0 11/19/2015 667 MG CAPS Take with snacks or supplements (as needed) ceFAZolin (ANCEF) Inject 150 mLs (3 g) 30 each 0 08/18/20 15 11/19/2015 intermittent infusion 2 into the vein twice a g (pre-mix)Indications: week Bacteremia, Sepsis Metoprolol Tartrate Take 200 mg by mouth 0 03/05/2016 (LOPRESSOR PO) 2 times daily In the AM and at Noon. Takes on M, W, F, [place] (Non-dialysis days only) (Takes 2 x 100mg tablet = 200mg) warfarin (COUMADIN) 5 MG Take 0.5 tablets by 90 tablet 1 12/16/2015 tabletIndications: Renal mouth daily. dialysis device, implant, or graft complication documented as of this encounter Plan of Treatment Not on filedocumented as of this encounter Procedures Procedure Name Priority Date/Time Associated Diagnosis Comme nts US EXTREMITY Routine 09/24/2015 3:31 PM ESRD (end stage renal Results for this ARTERIAL VENOUS [facility] disease) on dial ysis procedure are in DIALYSIS ACCESS Pseudoaneurysm of AV the results GRAFT hemodialysis fistula, sectio n. subsequent encounter documented in this encounter Results US Ext Arterial Venous Dialys Acs Graft (09/24/2015 3:31 PM [facility]) Anatomical Region Laterality Modality Vascular, Abdomen/Pelvis Ultrasound Specimen (Source) Anatomical Location Collection Method / Collectio n Time Received Time / Laterality Volume Impressions 09/24/2015 4:00 PM [facility] IMPRESSION: 1. Patent left thigh loop graft. No sugg estion of stenosis. 2. Simple-appearing fluid surrounding th e apex of the graft, possibly liquefied previous hematoma or infiltrat ion. PATRICIA OLVERA MD Narrative 09/24/2015 4:00 PM [facility] US EXTREMITY ARTERIAL VENOUS DIALYSIS ACCESS GRAFT 09/24/2015 3:31 PM HISTORY: 50-year-old male with followup of left thigh AV fistula for dialysis and chronic renal failure. COMPARISON: 08/10/2015 TECHNIQUE: Color Doppler and spectral wa veform analysis performed throughout the fistula and adjacent amira ve arteries. FINDINGS: The loop graft is patent. [place] at the arterial anastomosis is 578/323 cm/sec, anastomos is with the profunda femoral artery. Diameters at the arterial limb o f the graft range from 5.1-5.3 mm. At the graft apex, diameter is 6 mm and venous outflow diameters range from 6.6-10.5 mm. No visible steno sis. Hypoechoic collection surrounding the graft at the apex measur ing 7.4 x 2.4 x 1.1 cm. This collection is anechoic. Procedure Note Patricia Olvera MD - 09/24/2015 US EXTREMITY ARTERIAL VENOUS DIALYSIS AC CESS GRAFT 09/24/2015 3:31 PM HISTORY: 50-year-old male with followup of left thigh AV fistula for dialysis and chronic renal failure. COMPARISON: 08/10/2015 TECHNIQUE: Color Doppler and spectral wa veform analysis performed throughout the fistula and adjacent amira ve arteries. FINDINGS: The loop graft is patent. [place] at the arterial anastomosis is 578/323 cm/sec, anastomos is with the profunda femoral artery. Diameters at the arterial limb o f the graft range from 5.1-5.3 mm. At the graft apex, diameter is 6 mm and venous outflow diameters range from 6.6-10.5 mm. No visible steno sis. Hypoechoic collection surrounding the graft at the apex measur ing 7.4 x 2.4 x 1.1 cm. This collection is anechoic. IMPRESSION IMPRESSION: 1. Patent left thigh loop graft. No sugg estion of stenosis. 2. Simple-appearing fluid surrounding th e apex of the graft, possibly liquefied previous hematoma or infiltrat ion. PATRICIA OLVERA MD Jaxon Saravia MD IMG US ORDERABLES documented in this encounter Visit Diagnoses Diagnosis ESRD (end stage renal disease) on dialys is End stage renal disease Pseudoaneurysm of AV hemodialysis fistul a, subsequent encounter documented in this encounter Care Teams Structural Steel Ironworker Relationship Specialty Start Date End Date Preet Huff PCP - General 06/24/11 documented as of this encounter
--- OUTSIDE RECORDS SUMMARY | 2022-09-01 20:18 | XMS_ITS | Encounter Summary ---
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; [address] [place] [address] Thrombus due to any device, implant or g raft, initial encounter [facility] [address] [id number] [address] [place] [address] (Wo rk) Social History Tobacco Use Types Packs/Day Years Used Date Smoking Tobacco: Never Smokeless Tobacco: Never Alcohol Use Standard Drinks/Week Comments No 0 (1 standard drink = 0.6 oz pure alcoho l) Sex Assigned at Date Recorded Not on file documented as of this encounter Last Filed Vital Signs Vital Sign Reading Time Taken Comments Blood Pressure 205/101 11/06/2015 3:40 PM ASSESSMENT CLINICIAN Pulse 69 11/06/2015 12:14 PM ASSESSMENT CLINICIAN Temperature 36.9 ??C (98.5 ??F) 11/06/2015 12:14 PM ASSESSMENT CLINICIAN Respiratory Rate 18 11/06/2015 12:14 PM ASSESSMENT CLINICIAN Oxygen Saturation 100% 11/06/2015 2:30 PM ASSESSMENT CLINICIAN Inhaled Oxygen Concentration - - Weight 90.7 kg (200 lb) 11/06/2015 12:14 PM ASSESSMENT CLINICIAN Height - - Body Mass Index 34.33 07/02/2015 6:24 AM CDT documented in this encounter Discharge Instructions Discharge InstructionsEverardo Akbar MD - 11/06/2015 3:20 PM ASSESSMENT CLINICIAN You have a pseudoaneurysm and some degree of clot in your left groin graft. It is essential that youfollow up tomorrow in the Vascular Surgery clinic for further evaluation by the Specialists. No change in your normal medications is immediately necessary. Return here for acute problems. SSMENT CLINICIAN documented in this encounter Medications at Time of Discharge Medication Sig Dispensed Refills Start Date End Date Cholecalciferol (VITAMIN Take 2,000 Units by 0 D3 PO) mouth every evening LISINOPRIL PO Take 40 mg by mouth 0 daily (Takes 2 x 20mg tablet = 40mg ) b hnabkpd-G-mpjzd acid Take 1 capsule by 0 03/04/2016 [...] graft complication documented as of this encounter Consult Notes Honorio Aceves MD - 11/06/2015 4:06 PM CST Vascular Surgery Initial Consult November 06, 2015 Herminio Victor Date of : 1965 Date of Admission:11/06/2015 Primary care provider: Preet Huff Requesting physician: Everardo Akbar, * ASSESSMENT AND RECOMMENDATIONS: #1 Fistula Graft hematoma Discussed at length with Dr. Aceves. Per patient, hematomas stable. We have no US between Sep 24 and demonstrating initial size of hematoma and pseudoaneurysms and the patient states that the size of the indurated area along his leg has been stable and has not been growing. He has had no pain along the graft as well. If this is indeed growing, patient would benefit from repair. Dr. Saravia was aware of hematomas as and recommended hematoma resolution prior to surgical intervention. He may benefit from a period of observation and reimaging to determine if there are any changes in size. The fistula isnarrowed At the outflow area due to compression, but remains patent with flow through the graft. At this time, the patient remains HD stable, without signs of infection. He can be seen as an outpatientfor management of the hematoma, fistula, and pseudoaneurysms. INR is currently 3. Would benefit from holding coumadin if his hematoma does enlarge. Patient shouldreturn to ED if he has worsening pain, HD instability, fevers, chills, drainage, bleeding. HISTORY OF PRESENT ILLNESS: Herminio Victor is a 50 year old who is well known to vascular surgery. In Aug 2015 the patient underwent an explantation of a large portion of his loop PTFE dialysis graft due to infection and implantation of a procol graft. The patient was seen by Dr. Saravia on Sep 23 at the time the graft had some fluid surrounding it thought to be seroma, but matured enough to dialyse through. On October 06the patient underwent dialysis through the graft but it developed a moderate sized hematoma, per nursing, about 4x8cm, but this was never formally measured or ultrasounded. Pressure was held, the patient was discharged after Dr. Saravia was informed and recommended dialysis through catheter until the hem atoma resolved. The patient was seen in dialysis today, completed a run through his catheter, and was noted to possibly have a larger thigh hematoma with possible infection. He was then transferred [facility] for further management and care. Vascular Surgery was consulted to render an opinion and an ultrasound was performed. Upon arrival to the ED, the patient was normotensive, with a WBC of 3 with no systemic signs of infection or illness. The patient states that the hematoma along his left thigh has not changed significantly in size and is unsure why he is in the ED. He has no pain along the hematoma and has no discomfort when walking. No signs of steal. The patient has intact motor and sensory in the leg. ROS negative per above. US demonstrates two pseudoaneuryms along the graft, likely where the punctures were secondary to dialysis in September. The loop graft is widely patent at the arterial origin, with origin from the profunda femoral artery. Velocity is elevated at 583/14 cm/sec, though blood flow is noted to be turbulent at this location, without stenosis. In the arterial limb, there is a small pseudoaneurysm measuring 1.9 x 2.2 x 1.1 cm. Near the apex of the loop graft, there is a large pseudoaneurysm extending over a large area, too large to measure with ultrasound exam. There is either a portion of the pseudoaneurysm which is thrombosed or hematoma which appears to be compressing the venous limb of the graft with diameter diminished to 1.1 mm. Remaining outflow segment is 6.6-6.7 mm with velocity just proximal to the venous anastomosis diminished to 40/4 cm/sec. IMPRESSION: 1. Large pseudoaneurysm arising near the apex [...] further evidence for concern of impending graft failure. Exam demonstrates a fistula with palpable thrill. No pain on palpation. No drainage. Indurated area with firmness: likely hematoma. Area involved surrounding graft approx length of 28x3kecaln in certain areas. PMH: Past Medical History Diagnosis Date ??? Hypertension ??? Anemia ??? Retinopathy ??? Kidney disease ??? Kidney disease ??? Hyperkalemia ??? ESRD (end stage renal disease) ([facility]) dialysis T-TH-Tue ??? Blind ??? DVT (deep venous thrombosis) ([facility]) ??? Orthostasis ??? Diabetes mellitus (HCC) ??? Syncope ??? Hypertension ??? A-V fistula ([facility]) left forearm ??? Hyperlipemia ??? Cognitive deficits ??? Anemia ??? Sleep apnea CPAP ??? Chronic in-center hemodialysis status ([facility]) ??? 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 Auth Provider ceFAZolin (ANCEF) intermittent infusion 2 g (pre-mix) Inject 150 mLs (3 g) into the vein twice a week Jose Palomino MD calcium acetate (PHOSLO) 667 MG CAPS Take 667 mg by mouth Take with snacks or supplements (as needed) Dummy, Bfp User LISINOPRIL PO Take 20 mg by mouth Take on M, W, F, [place] (Non-dialysis days only) Reported, Patient bisacodyl (DULCOLAX) 5 MG EC tablet Take 10 mg by mouth Take on M, W, F, [place] (Non-dialysis days only)Dummy, Bfp User Cholecalciferol (VITAMIN D3 PO) Take 2,000 Units by mouth daily Dummy, Bfp User Metoprolol Tartrate (LOPRESSOR PO) Take 100 mg by mouth 2 times daily Takes on M, W, , [place] (Non-dialysis days only) Dummy, Bfp User warfarin (COUMADIN) 5 MG tablet Take 0.5 tablets by mouth daily. Patient taking differently: Take 5 mg by mouth daily Alejandro Emerson MD calcium acetate (PHOSLO) 667 MG CAPS Take 1,334 mg by mouth 3 times daily (with meals) Reported, Patient b rrqagui-D-byzhb acid (NEPHROCAPS) 1 MG capsule Take 1 capsule by mouth daily Reported, Patient simvastatin (ZOCOR) 40 MG tablet Take 40 mg by mouth every evening Reported, Patient Current Meds ROS: A 10 point review of systems was negative except as noted above. Physical Exam: Temp Av.5 ??F (36.9 ??C) Min: 98.5 ??F (36.9 ??C) Max: 98.5 ??F (36.9 ??C) Pulse Av Min: 69 Max: 69 Resp Av Min: 18 Max: 18 SpO2 Av % Min: 100 % Max: 100 % BP 213/101 mmHg Pulse 69 Temp(Src) 98.5 ??F (36.9 ??C) (Oral) Resp 18 Wt 90.719 kg (200 lb) SpO2 100% Admit Weight: 90.719 kg (200 lb) Exam: General: alert, no distress, resting comfortably in bed Neuro: Alert and oriented Resp: Breathing unlabored, Abd: benign Extremities: warm and well perfused. Indurated area along graft. No pain to palpation. Patient states the size has been stable. Thrill along graft. Labs: CMP Recent Labs Lab 11/06/15 1249 NA 129* POTASSIUM 3.0* CHLORIDE 92* CO2 30 ANIONGAP 7 GLC 107* BUN 23 CR 5.94* GFRESTIMATED 10* GFRESTBLACK 12* JON 7.9* CBC Recent Labs Lab 11/06/15 1249 HGB 9.7* WBC 3.0* RBC 3.73* HCT 29.7* MCV 80 MCH 26.0* MCHC 32.7 RDW 16.3* PLT 85* INR Recent Labs Lab 11/06/15 1249 INR 3.02* Imaging: IMAGING: Reviewed. As above. -Thank you for the opportunity to participate in the care of this patient. Cintia Marshall MD Vascular Fellow 11/06/2015 4:07 PM I have reviewed the medical record and pertinent imaging. I agree with the above assessment. Honorio Aceves SSMENT CLINICIAN documented in this encounter ED Notes Poppy Wiley RN - 11/06/2015 4:05 PM CST RN talked to family member -Thelma over the phone. Coordinated office appointment for tomorrow morning at Dr. Saravia's office. Family unable to come get patient until 6-7pm. Dicussed meal and fluid restriction options- no salt, processed foods or vitamin K vegetables. 1/2 glass of liquid. SSMENT CLINICIAN Poppy Wiley RN - 11/06/2015 3:09 PM CST MD at bedside. RN brought courtesy meal. SSMENT CLINICIAN Rocio Wei RN - 11/06/2015 12:53 PM CST Called Chey CORMIER at [facility], she sent pt here after talking to Dr Darrin White about concern of hematoma significantly worse left leg, worried for dissection, new click,. Had high INR last week 2.8 this week , Dr Akbar aware SSMENT CLINICIAN Everardo Akbar MD - 11/06/2015 12:18 PM CST History Chief Complaint: L groin swelling HPI History limited due to patient's baseline mental status. He is a poor historian. Herminio Victor is a 50 year old [...] results above. 1302: I spoke with Dr. Acvees of the surgical service regarding patient's presentation, [...] discharge. Impression & Plan Medical Decision Making: Herminio Victor is a 50 year old male with [...] was seen by the vascular surgeon Dr. Marshall in the emergency department who confirmed that the vascular team felt he was safe for discharge and close follow up in their clinic. Dialysis should continue to use the right groin line which is working well. He was kept in the emergency department for an extended period while waiting for family to arrive from [place] to come pick him up. Diagnosis: (1. 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 (N18.6) End stage renal disease (HCC) 3. 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 11/06/2015 EMERGENCY DEPARTMENT Everardo Akbar MD 11/06/15 1727 SSMENT CLINICIAN Den Valenzuela RN - 11/06/2015 12:11 PM CST Bed: ED25 Expected date: Expected time: Means of arrival: Comments: [place] SSMENT CLINICIAN documented in this encounter Plan of Treatment Not on filedocumented as of this encounter Procedures Procedure Name Priority Date/Time Associated Comments Diagnosis US EXTREMITY ARTERIAL STAT 11/06/2015 2:32 PM Results for this VENOUS DIALYSIS ASSESSMENT CLINICIAN procedure ar e in ACCESS GRAFT the results section. CBC WITH PLATELETS & STAT 11/06/2015 12:49 Res ults for this DIFFERENTIAL PM ASSESSMENT CLINICIAN procedure are i n the results section. INR STAT 11/06/2015 12:49 Results for this PM ASSESSMENT CLINICIAN procedure are i n the results section. BASIC METABOLIC PANEL STAT 11/06/2015 12:49 Re sults for this PM ASSESSMENT CLINICIAN procedure are i n the results section. documented in this encounter Results US Ext Arterial Venous Dialys Acs Graft (11/06/2015 2:32 PM ASSESSMENT CLINICIAN) Anatomical Region Laterality Modality Vascular, Abdomen/Pelvis Ultrasound Specimen (Source) Anatomical Location Collection Method / Collectio n Time Received Time / Laterality Volume Impressions 11/06/2015 3:06 PM ASSESSMENT CLINICIAN IMPRESSION: 1. Large pseudoaneurysm arising near the apex of the fistula. Either a thrombosed portion of the pseudoaneurysm or large hematoma visible adjacent to the venous outflow limb caus ing significant narrowing with visible diameter of 1.1 mm. The AV fistu la remains patent, though concern for impending thrombosis given m ass effect and extrinsic compression. 2. Small pseudoaneurysm at the distal as pect of the arterial limb measuring 1.9 x 2.2 x 1.1 cm. 3. Nonocclusive thrombus noted in the ve nous outflow limb, not visible on previous exam, further evidence for c oncern of impending graft failure. PATRICIA OLVERA MD Narrative 11/06/2015 3:06 PM ASSESSMENT CLINICIAN ULTRASOUND EXTREMITY ARTERIOVENOUS DIALYSIS ACCESS GRAFT ??11/06/2015 2:32 PM HISTORY: ??50-year-old male with increas ing hematoma in left groin. Patient has a AV fistula in the left jose l in. COMPARISON: September 24, 2015. TECHNIQUE: Color Doppler and spectral wa veform analysis performed throughout the AV fistula. FINDINGS: The loop graft is widely paten t at the arterial origin, with origin from the profunda femoral artery. Velocity is elevated at 583/14 cm/sec, though blood flow is note d to be turbulent at this location, without stenosis. In the arter ial limb, there is a small pseudoaneurysm measuring 1.9 x 2.2 x 1.1 cm. Near the apex of the loop graft, there is a large pseudoaneurysm e xtending over a large area, too large to measure with ultrasound exa m. There is either a portion of the pseudoaneurysm which is thrombose d or hematoma which appears to be compressing the venous limb of the gr aft with diameter diminished to 1.1 mm. Remaining outflow segment is 6.6-6.7 mm with velocity just proximal to the venous anastomosis dimin ished to 40/4 cm/sec. Procedure Note Patricia Olvera MD - 11/06/2015 ULTRASOUND EXTREMITY ARTERIOVENOUS DIALY SIS ACCESS GRAFT 11/06/2015 2:32 PM HISTORY: 50-year-old male with increasin g hematoma in left groin. Patient has a AV fistula in the left jose l in. COMPARISON: September 24, 2015. TECHNIQUE: Color Doppler and spectral wa veform analysis performed throughout the AV fistula. FINDINGS: The loop graft is widely paten t at the arterial origin, with origin from the profunda femoral artery. Velocity is elevated at 583/14 cm/sec, though blood flow is note d to be turbulent at this location, without stenosis. In the arter ial limb, there is a small pseudoaneurysm measuring 1.9 x 2.2 x 1.1 cm. Near the apex of the loop graft, there is a large pseudoaneurysm e xtending over a large area, too large to measure with ultrasound exa m. There is either a portion of the pseudoaneurysm which is thrombose d or hematoma which appears to be compressing the venous limb of the gr aft with diameter diminished to 1.1 mm. Remaining outflow segment is 6.6-6.7 mm with velocity just proximal to the venous anastomosis dimin ished to 40/4 cm/sec. IMPRESSION: 1. Large pseudoaneurysm arising near the apex of the fistula. Either a thrombosed portion of the pseudoaneurysm or large hematoma visible adjacent to the venous outflow limb caus ing significant narrowing with visible diameter of 1.1 mm. The AV fistu la remains patent, though concern for impending thrombosis given m ass effect and extrinsic compression. 2. Small pseudoaneurysm at the distal as pect of the arterial limb measuring 1.9 x 2.2 x 1.1 cm. 3. Nonocclusive thrombus noted in the ve nous outflow limb, not visible on previous exam, further evidence for c oncern of impending graft failure. PATRICIA OLVERA MD Everardo Akbar MD IMG US ORDERABLES (ABNORMAL) INR (11/06/2015 12:49 PM ASSESSMENT CLINICIAN) P athologist Signature INR 3.02 (H) 0.86 - 1.14 [facility] Specimen Anatomical Collection Method Collection Time Receive d Time (Source) Location / / Volume Laterality Blood specimen 11/06/2015 12:49 6 (specimen) PM ASSESSMENT CLINICIAN 12:56 PM ASSESSMENT CLINICIAN Everardo Akbar MD LAB - BLOOD ORDERABLES Performing Organization Address City/State/ZIP Code Phon e Number [facility] [address] [address] [facility] [address] [address], [place] [phone] (ABNORMAL) Basic metabolic panel (11/06/2015 12:49 PM ASSESSMENT CLINICIAN) Analysis Performed At Patho logist Time Signature Sodium 129 (L) 133 - 144 [place] mmol/L [facility] Potassium 3.0 (L) 3.4 - 5.3 [place] mmol/L [facility] Chloride 92 (L) 94 - 109 [place] mmol/L [facility] Carbon Dioxide 30 20 - 32 [place] mmol/L [facility] Anion Gap 7 3 - 14 [place] mmol/L [facility] Glucose 107 (H) 70 - 99 [place] mg/dL [facility] Urea Nitrogen 23 7 - 30 [place] mg/dL [facility] Creatinine 5.94 (H) 0.66 - [place] 1.25 mg/dL [facility] GFR Estimate 10 (L) >60 [place] mL/min/1.[address] Comment: Non GFR Calc GFR Estimate If Black 12 (L) >60 mL/min/1.7m2 F [facility] Comment: GFR Calc Calcium 7.9 (L) 8.5 - 10.1 mg/dL [facility] Specimen Anatomical Collection Method Collection Time Receive d Time (Source) Location / / Volume Laterality Blood specimen 11/06/2015 12:49 6 (specimen) PM ASSESSMENT CLINICIAN 12:56 PM ASSESSMENT CLINICIAN Everardo Akbar MD LAB - BLOOD ORDERABLES Performing Organization Address City/State/ZIP Code Phon e Number [facility] [address] [address] [phone] [facility] [address] [place] [address], [place] [phone] (ABNORMAL) CBC with platelets differential (11/06/2015 12:49 PM ASSESSMENT CLINICIAN) [employer] gist Method Time Signature WBC 3.0 (L) 4.0 - [place] 11.0 [facility] 10e9/L [facility] RBC Count 3.73 (L) 4.4 - 5.9 [place] 10e12/L [facility] Hemoglobin 9.7 (L) 13.3 - [place] 17.7 g/dL [facility] Hematocrit 29.7 (L) 40.0 - [place] 53.0 % [facility] MCV 80 78 - 100 [facility] MCH 26.0 (L) 26.5 - [place] 33.0 pg [facility] MCHC 32.7 31.5 - [place] 36.5 g/dL [facility] RDW 16.3 (H) 10.0 - [place] 15.0 % [facility] Platelet Count 85 (L) 150 - 450 [place] 10e9/L [facility] Diff Method Automated [facility] % Neutrophils 60.5 % [facility] % Lymphocytes 11.4 % [facility] % Monocytes 17.8 % [facility] % Eosinophils 9.7 % [facility] % Basophils 0.3 % [facility] % Immature 0.3 % [place] Granulocytes [facility] Nucleated RBCs 0 0 /100 [facility] Absolute 1.8 1.6 - 8.3 [place] Neutrophil 10e9/L [facility] Absolute 0.3 (L) 0.8 - 5.3 [place] Lymphocytes 10e9/L [facility] Absolute 0.5 0.0 - 1.3 [place] Monocytes 10e9/L [facility] Absolute 0.3 0.0 - 0.7 [place] Eosinophils 10e9/L [facility] Absolute 0.0 0.0 - 0.2 [place] Basophils 10e9/L [facility] Abs Immature 0.0 0 - 0.4 [place] Granulocytes 10e9/[facility] Absolute 0.0 [place] Nucleated RBC [facility] Specimen Anatomical Collection Method Collection Time Receive d Time (Source) Location / / Volume Laterality Blood specimen 11/06/2015 12:49 6 (specimen) PM ASSESSMENT CLINICIAN 12:56 PM ASSESSMENT CLINICIAN Everardo Akbar MD LAB - BLOOD ORDERABLES Performing Organization Address City/State/ZIP Code Phon e Number [facility] [address] [address] [facility] [address] [address], [facility] [phone] documented in this encounter Visit Diagnoses Diagnosis Pseudoaneurysm (H) Aneurysm of unspecified site End stage renal disease (H) End stage renal disease snf current use of anticoagulant t herapy Thrombus due to any device, implant or g raft, initial encounter documented in this encounter Care Teams Industrial Electrician Relationship Specialty Start Date End Date Preet Huff PCP - General 06/24/11 documented as of this encounter
--- OUTSIDE RECORDS SUMMARY | 2022-09-01 20:18 | XMS_ITS | Encounter Summary ---
:1965 Author Organization [facility] Address [address] [place] [address] Care Team Providers Name Role Phone Preet Huff Primary Care Provider Reason for Visit Reason Onset Date Comments Vascular Access Problem 10/02/2015 Encounter Details Date Type Department Care Team Description 10/02/2015 Telephone [facility] Jaxon Saravia Vascular Access Problem [facility] MD [address] [place] [id number] [place] [id number] (Wo rk) Social History Tobacco Use Types Packs/Day Years Used Date Smoking Tobacco: Never Smokeless Tobacco: Never Alcohol Use Standard Drinks/Week Comments No 0 (1 standard drink = 0.6 oz pure alcoho l) Sex Assigned at Date Recorded Not on file documented as of this encounter Miscellaneous Notes Telephone Encounter - Alice Pabon RN - 10/08/2015 11:57 AM CST requests that the dialysis center wait until the pt's hematoma has completley resolved. Dialysis nurse verbalized understanding and will plan to have the pt schedule an OV with prior to them accessing the fistula again. Alice Pabon RN BSN ED [employer] TECH[employer]IAN Telephone Encounter - Alice Pabon RN - 10/06/2015 12:17 PM CST Dialysis center left a VM on RN phone Tuesday10/04/15. Message was to inform RN that the pt's groin site seems to have improved slightly, instead of a solid firm area is is more lumpy, the hematomais possibly breaking up. The dialysis center will call again on Tuesday10/07/15 with an update. Alice Pabon RN BSN ED [employer]CRET[employer] W[employer] TECHNICIAN Telephone Encounter - Alice Pabon RN - 10/02/2015 10:17 AM CST Heidi from the pt's dialysis center called to report an issue with the pt's fistula. On 08/13/15 most of the pt's graft was replaced using ProCal and the infected PTFE graft was excised. The pt was last seen by on 09/24/15, at that appt the dialysis center was given approval to begin using the fistula. The left groin fistula was accessed on Tuesday, without difficulty. Pt had a dialysis run on 09/30/15 using the pt's tunnel catheter because the dialysis nurse was an inexperienced one that day. Today the pt presented to the dialysis center with a firm area at the graft site, 4x8 cm. RN discussed with . Per , the staff most likely did not hold pressure to the area long enough after his run on 09/27/15 and the pt developed a hematoma. The dialysis center was advised that they should not use the groin site for now, but should monitor it. In the future they should hold pressure to the site for a longer time after dialysis runs. The dialysis center will call this RN on Tuesday with an update on the groin site. Alice Pabon RN ED [employer]CRETE WALL TECHNICIAN documented in this encounter Plan of Treatment Not on filedocumented as of this encounter Visit Diagnoses Not on filedocumented in this encounter Care Teams Mosaic Floor Layer Relationship Specialty Start Date End Date Preet Huff PCP - General 06/24/11 documented as of this encounter
--- OUTSIDE RECORDS SUMMARY | 2022-09-01 20:18 | XMS_ITS | Encounter Summary ---
:1965 Author Organization [facility] Address [address] [place] [address]. [place] [address] Care Team Providers Name Role Phone Cornell Butt Primary Care Provider Reason for Visit Auth/Cert - Closed Specialty Diagnoses / Procedures Referred By Contact Refer red To Contact Dialysis Diagnoses fever Fever Sh Dialysis [address] [place] [phone] Phone: Referral ID Status Reason Start Date Expiration Date Visits Requ ested Visits Authorized [id number] Closed 08/10/2015 08/09/2016 1 1 Encounter Details Date Type Department Care Team Description 08/09/2015 - Hospital Encounter [facility] Maria Fernanda Queen Zainab teremia (Primary 08/17/2015 Ariane Carrillo MD Dx) Medical Specialty [address] [place] [address] [place] [phone] (Work) [phone] Social History Tobacco Use Types Packs/Day Years Used Date Smoking Tobacco: Never Smokeless Tobacco: Never Alcohol Use Standard Drinks/Week Comments No 0 (1 standard drink = 0.6 oz pure alcoho l) Sex Assigned at Date Recorded Not on file documented as of this encounter Last Filed Vital Signs Vital Sign Reading Time Taken Comments Blood Pressure 168/82 08/17/2015 7:45 AM WOOD FINISHER Pulse 86 08/16/2015 3:59 PM WOOD FINISHER Temperature 36.4 ??C (97.5 ??F) 08/17/2015 7:45 AM WOOD FINISHER Respiratory Rate 18 08/17/2015 7:45 AM WOOD FINISHER Oxygen Saturation 96% 08/17/2015 7:45 AM WOOD FINISHER Inhaled Oxygen Concentration - - Weight 94.9 kg (209 lb 3.5 oz) 08/17/2015 6:58 AM WOOD FINISHER Height - - Body Mass Index 35.91 07/02/2015 6:24 AM CDT documented in this encounter Discharge Summaries Jose Palomino MD - 08/17/2015 10:00 AM CST [facility] Discharge Summary Julio Cesar Sandhu Date of : 1965 Age: [age] year old Date of Admission: 08/09/2015 Date of Discharge: 08/17/2015 Admitting Physician: Maria Fernanda Queen MD Discharge Physician: Jose Palomino MD Discharging Service: Hospitalist Primary Provider: Cornell Gomez Primary Care Physician Discharge Diagnoses/Problem Oriented Hospital Course (Providers): Julio Cesar Sandhu was admitted on 08/09/2015 by Maria Fernanda Queen MD and I would refer you to their history and physical. The following problems were addressed during his hospitalization: In brief this is a 50 y/o gentleman with PMH significant for ESRD on hemodialysis, hypertension, secondary hyperparathyroidism, obstructive sleep apnea, anemia of chronic disease, type 2 diabetes mellitus with diabetic retinopathy, hyperlipidemia, DVT of upper extremity who was admitted on 08/09/2015 with fevers, found to have MSSA bacteremia. Followings is a list of major hospital problems: Dialysis access site bleeding: POD # 4 s/p repair of bleeding left groin HD access from pseudoaneurysm of old PTFE graft with placement of new ProCol graft. had aTunneled catheter for dialysis for at least next 4 weeks until new graft matures. - OK to resume coumadin Per Surgery, hence resumed Sepsis with MSSA bacteremia, ID followed during the hospital stay, on IV Ancef x 4 weeks with Hemodialysis. TTE without evidence for endocarditis End-stage renal disease on hemodialysis T-- Secondary hyperparathyroidism Hyponatremia Nephrology followed for inpatient HD Continued on prior to admission dialysis medications and Dialysis/renal diet - [id number] ml fluid restriction; which per [facility] was his baseline diet . Hypertension Remained stable, continued on CALL [employer] SUPPORT CONSULTANT antihypertensive lisinopril, metoprolol. Note he takes these on non-dialysis days. History of upper extremity DVT On Coumadin., temporarily held Due to dialysis access site bleeding And later resumed after hemostasis and vascular surgery was obtained,. Pharmacy consulted for warfarin dosing. Obstructive sleep apnea Continued prior to admission CPAP per home settings. History of type 2 diabetes mellitus with complications of diabetic retinopathy His most recent hemoglobin A1c was 5.1% 05/2014 , currently below assay measurement ability range.Noton any medications. Anemia of chronic disease Stable Code Status: Full Code Brief Hospital Stay Summary Sent Home With Patient in AVS: Reason for your hospital stay Bacteremia, Infection in the blood stream Important Results: See below Pending Results: Unresulted Labs Ordered in the Past 30 Days of this Admission Date and Time Order Name Status Description 08/17/2015 0000 Blood culture In process 08/16/2015 0000 Blood culture Preliminary 08/15/2015 0000 Blood culture Preliminary 08/14/2015 0000 Blood culture Preliminary 08/13/2015 0000 Blood culture Preliminary 08/12/2015 0000 Blood culture Preliminary Discharge Instructions and Follow-Up: Follow-up Appointments Follow-up and recommended labs and tests Follow up with primary care provider, Cornell Butt within 7 days to evaluate medication/Antibiotics durations and for hospital follow- up. No follow up labs or test are needed. Discharge Disposition: Discharged to home Discharge Medications: Current Discharge Medication List START taking these medications Details ceFAZolin (ANCEF) intermittent infusion 2 g (pre-mix) Inject 150 mLs (3 g) into the vein twice a week Qty: 30 each, Refills: 0 Comments: Give post dialysis on Tuesday and Associated Diagnoses: Bacteremia CONTINUE these medications which have NOT CHANGED Details !! calcium acetate (PHOSLO) 667 MG CAPS Take 667 mg by mouth Take with snacks or supplements (as needed) LISINOPRIL PO Take 20 mg by mouth Take on M, W, F, [place] (Non-dialysis days only) bisacodyl (DULCOLAX) 5 MG EC tablet Take 10 mg by mouth Take on M, W, F, [place] (Non-dialysis days only) Cholecalciferol (VITAMIN D3 PO) Take 2,000 Units by mouth daily Metoprolol Tartrate (LOPRESSOR PO) Take 100 mg by mouth 2 times daily Takes on M, W, F, [place] (Non-dialysis days only) warfarin (COUMADIN) 5 MG tablet Take 0.5 tablets by mouth daily. Qty: 90 tablet, Refills: 1 Associated Diagnoses: Renal dialysis device, implant, or graft complication !! calcium acetate (PHOSLO) 667 MG CAPS Take 1,334 mg by mouth 3 times daily (with meals) b efpookh-I-wudvp acid (NEPHROCAPS) 1 MG capsule Take 1 capsule by mouth daily simvastatin (ZOCOR) 40 MG tablet Take 40 mg by mouth every evening !! - Potential duplicate medications found. Please discuss with provider. Allergies: Allergies Allergen Reactions ??? Aspirin [Dihydroxyaluminum Aminoacetate] GI Disturbance GI bleeding Consultations This Hospital Stay: Consultation during this admission received from nephrology and surgery Condition and Physical on Discharge: Discharge condition: Stable Vitals: Heart Rate: 89, Blood pressure 168/82, pulse 86, temperature 97.5 ??F (36.4 ??C), temperature source Oral, resp. rate 18, weight 94.9 kg (209 lb 3.5 oz), SpO2 96 %. Constitutional: Alert in NAD confortably lying in bed Lungs: CTAB no wheezing or crackles Cardiovascular: RRR S1 S2 heard Abdomen: Soft ND/NT positive bowel sounds Skin: Warm dry no rashes Other: Discharge Time: Discharge process has taken greater than 30 minutes. Image Results From This Hospital Stay (For Non-[facility] Providers): Results for orders placed or performed during the hospital encounter of 08/09/15 US Ext Arterial Venous Dialys Acs Graft Narrative US EXTREMITY ARTERIAL VENOUS DIALYSIS ACCESS GRAFT 08/10/2015 3:07 PM HISTORY: 50-year-old male with fever to 104 degrees, recently status post surgical revision of left profunda femoris artery to common femoral vein PTFE dialysis loop graft. COMPARISON: 06/26/2015. FINDINGS: The left profunda to common femoral vein PTFE dialysis graft is patent without evidence of stenosis. Since the previous study, 3.4 x 3.2 x 2.3 cm complex perigraft fluid collection has developed at the apex of the graft. Although this may represent hematoma related to access or recent surgical revision, given the patient's history I cannot exclude this being infected perigraft fluid. In the arterial aspect of the graft there are two pseudoaneurysms identified with flow and partially thrombosed most proximal measuring 0.8 x 0.9 x 0.5 cm and the second slightly distal towards the apex measuring 1.4 x 1.3 x 0.7 cm. There is also questionable small amount of perigraft fluid at the distal anastomosis to the common femoral vein. Inflow profunda femoris artery and outflow common femoral veins appear patent. Impression IMPRESSION: 1. Patent left thigh profunda femoris artery to common femoral vein PTFE loop dialysis graft. 2. There has been interval development of complex perigraft fluid collection at the apex of the graft which could represent sterile or infected perigraft fluid such as hematoma. 3. Two pseudoaneurysms in the arterial limb of the graft as described which are partially thrombosed. 4. There may be a small amount of fluid at the distal anastomosis to the common femoral vein as well. DARRIAN MOYA MD IR CVC Tunnel Placement > 5 Yrs of Age Narrative INTERVENTIONAL RADIOLOGY CVC TUNNEL PLACEMENT GREATER THAN FIVE YEARS OF AGE 1108/14/2015 11:17 AM HISTORY: 50-year-old male with end-stage renal disease with recently revised left femoral dialysis loop graft. The patient requires temporary catheter dialysis via the right groin as he has known occluded central venous access in the upper extremities. Patient is also status post failed right groin fistula. FINDINGS: The procedure was explained to the patient in detail, and informed consent was obtained. The patient was prepped and draped, and 1% lidocaine was used as local anesthetic. Ultrasound was used to document location and patency of the right common femoral vein, and an image was obtained. Under sterile ultrasound guidance, a micropuncture needle was inserted in the right common femoral vein, and a wire was placed. A micro-sheath was then placed and subsequently upsized to a 5 Somali dilator. A subcutaneous tunnel was then created along the right thigh to the common femoral access site. A Palindrome 14.5 Somali 28 cm tip to cuff dialysis catheter was then placed through the tunnel. The dilator was exchanged for a peel-away sheath, and the dialysis catheter was advanced through the peel-away sheath into the mid inferior vena cava. The peel-away sheath was removed. Both ports of the catheter were aspirated and flushed and demonstrated good function and were subsequently heparin locked. The catheter was sutured to the skin site with 2-0 Ethilon. A permanent fluoroscopic image was obtained documenting the tip of the dialysis catheter in the inferior vena cava. There were no immediate complications. Fluoroscopy time: 1.6 minutes. Local anesthetic: 20 mL 1% lidocaine. Conscious sedation: 1 mg IV Versed, 50 mcg IV fentanyl. Sedation time: 26 minutes. The patient was monitored by radiology nursing staff under my supervision and remained stable throughout the study. Impression IMPRESSION: Successful right femoral tunneled dialysis catheter placement. DARRIAN MOYA MD Most Recent Lab Results In [facility] (For Non-[facility] Providers): Most Recent 3 CBC's: Recent Labs Lab Test 08/15/15 03408/14/15 0340 08/13/15 1415 08/12/15 0814 WBC -- 6.5 4.7 4.4 HGB -- 7.3* 6.9* 7.7* MCV -- 84 83 81 PLT 138* 120* 131* 128* Most Recent 3 BMP's: Recent Labs Lab Test 08/14/15 03408/13/15 0826 08/12/15 0814 NA 131* 131* 127* POTASSIUM 4.5 3.9 4.1 CHLORIDE 96 94 91* CO2 26 27 23 BUN 65* 53* 94* CR 10.20* 8.82* 12.60* ANIONGAP 9 10 13 JON 7.8* 8.0* 8.2* GLC 118* 135* 116* Most Recent 3 Troponin's:No lab results found. Invalid input(s): TROP, TROPONINIES Most Recent 3 INR's: Recent Labs Lab Test 08/17/15 0814 08/16/15 0913 08/15/15 0345 INR 1.90* 1.80* 1.36* Most Recent 2 LFT's:No lab results found. Most Recent Cholesterol Panel:No lab results found. Most Recent 6 Bacteria Isolates From Any Culture (See EPIC Reports for Culture Details): Recent Labs Lab Test 08/16/15 0913 08/15/15 0345 08/14/15 0340 08/13/15 0826 08/12/15 0814 08/11/15 0841 CULT No growth after 15 hours No growth after 2 days No growth after 3 days No growth after 4 days No growth after 5 days No growth Most Recent TSH, T4 and HgbA1c: Recent Labs Lab Test 08/10/15 0824 A1C Below Assay Range Canceled, Test credited CALLED ESME MARTINEZ 66 AT 0928 Jose Palomino MD Internal Medicine, Hospitalist Pager#; [phone] FINISHER documented in this encounter Medications at Time of Discharge Medication Sig Dispensed Refills Start Date End Date Cholecalciferol (VITAMIN Take 2,000 Units by 0 D3 PO) mouth every evening LISINOPRIL PO Take 40 mg by mouth 0 daily (Takes 2 x 20mg tablet = 40mg ) b vlbqzxd-D-zplew acid Take 1 capsule by 0 03/04/2016 [...] documented as of this encounter Progress Notes Compa Nj - 08/17/2015 10:45 AM CST SULY Thomas) has written discharge orders for discharge home today. I) Attempted to arrange transport with [facility], per family request, but they are available only M-F. [facility] wheelchair transport at 1400. Updated aunt, Thelma and noted patient has MA but there is never a guarantee that this will be covered. Thelma will be home when patient arrives. Discharge orders have been faxed to the HOUSE[employer] Agency, [employer] at phone [phone] andfax [phone]. A) Patient and his aunt agree to this plan. P) D/C home today with aunt to provide 24 hour care, as she had done previously. Julienne Vargas, RN - 08/16/2015 2:47 PM CST Dialysis Run: Pt Arrived to [facility] via bed Time out taken Pt ran for 3.5 hours on a K3 with a net fluid removal of 4L A BF of 425 was maintained via Rt Femoral Meds : Epo No Heparin given on run Heparin instilled in both ports post run Complications:None Pt was seen by Dr Holman during run Aseptic prep both on and off procedure. Procedure and ESRD discussed and all questions answered VSS post run See [facility] for more details Water detection monitor on floor during run [facility] [place] [facility] Weight 95.5kg Post Weight 91.5 kg POTASSIUM Date Value Ref Range Status 08/14/2015 4.5 3.4 - 5.3 mmol/L Final ] HEMOGLOBIN Date Value Ref Range Status 08/14/2015 7.3* 13.3 - 17.7 g/dL Final ] CREATININE Date Value Ref Range Status 08/14/2015 10.20* 0.66 - 1.25 mg/dL Final ] Leni Wesley RN [facility] FINISHER Mona Lebron - 08/16/2015 1:02 PM CST Patient is afebrile, BP slightly elevated (158/79), O2 stable on RA. Ambulated once w/SBA. Dressing on left groin removed early in the morning by physician. Incision began oozing in afternoon, clean dressing applied, continue to monitor. Incision on right groin WDL, scant drainage. Pt received dialysis, is hopeful for DC soon. FINISHER Wojciech Holman MD - 08/16/2015 11:49 AM CST Renal Medicine Inpatient Dialysis Note Julio Cesar Sandhu Age: [age] year old Date of : 1965 Date of Admission: 08/09/2015 Hospital LOS: 7 Assessment/Plan: Admitted with fever. Found to be bacteremic. Concern regarding possible graft Infection 1. ESRD 2. Anemia 3. Gram positive bacteremia 4. HTN 5. Anticoagulated Dialyzing via tunneled groin line without issue Should receive cefazolin 3 gm post dialysis today OK for discharge from renal standpoint Interval History: Seen during course of dialysis run. Run parameters reviewed with sub prior. BFR adequate at 400. UF to 4 kg ROS R: NEGATIVE for significant cough or SOB CV: NEGATIVE for chest pain, palpitations GI: NEGATIVE for abdominal pain, heartburn, nausea, vomiting or change in bowel pattern EXT: no change edema ROS otherwise negative Dialysis Parameters: Vitals were reviewed Patient Vitals for the past 8 hrs: BP Temp Temp src Heart Rate Resp SpO2 Weight 08/16/15 1123 190/84 mmHg 98 ??F (36.7 ??C) Oral - 18 - 95.5 kg (210 lb 8.6 oz) 08/16/15 0800 158/79 mmHg 97.4 ??F (36.3 ??C) Oral 82 18 100 % - 08/16/15 0647 - - - - - - 95.528 kg (210 lb 9.6 oz) I/O last 3 completed shifts: In: 915 [P.O.:915] Out: - Filed Vitals: 08/12/15 0500 08/12/15 0838 08/15/15 0700 08/16/15 0647 Weight: 91.4 kg (201 lb 8 oz) 91.4 kg (201 lb 8 oz) 92.987 kg (205 lb) 95.528 kg (210 lb 9.6 oz) 08/16/15 1123 Weight: 95.5 kg (210 lb 8.6 oz) Current Weight: 95.5 Dry Weight: 87 Dialysis Temp: 36.5 ??C Access Device: CVC Access Site: right groin Dialyzer: Revaclear Dialysis Bath: 3 Sodium Profile: n UF Goal: 3 to 4 Blood Flow Rate (mL/min): 400 Total Treatment Time (hrs): 3.5 Heparin: Low dose as required EPO dose: y Zemplar: n IV Fe: n Medications and Allergies: Reviewed Physical Exam: Seen and examined during course of dialysis run BP 190/84 mmHg Pulse 96 Temp(Src) 98 ??F (36.7 ??C) (Oral) Resp 18 Wt 95.5 kg (210 lb 8.6 oz) SpO2 100% GENERAL: awake, alert, follows HEENT: NC/AT, PERRLA, EOMI, non icteric, pharynx moist without lesion RESP: clear CV: RRR, normal S1 S2 ABDOMEN: S/NT, BS present MS: trace edema EXT: access canulated without issue NEURO: speech normal and cranial nerves 2-12 intact PSYCH: mentation appears normal and affect flat Data: Recent Labs Lab 08/14/15 0340 NA 131* POTASSIUM 4.5 CHLORIDE 96 CO2 26 ANIONGAP 9 GLC 118* BUN 65* CR 10.20* GFRESTIMATED 5* GFRESTBLACK 7* JON 7.8* Recent Labs Lab 08/14/15 0340 08/13/15 1415 08/12/15 0814 08/10/15 0824 08/09/15 1250 PHOS -- -- -- -- 2.3* HGB 7.3* 6.9* 7.7* 8.2* -- Recent Labs Lab Test 08/04/12 0930 HEPBANG Negative HBSAB 5.0 Wojciech Holman [facility] - Nephrology [phone] FINISHER Jose Palomino MD - 08/16/2015 11:10 AM CST [facility] Hospitalist Progress Note Date of Service (when I saw the patient): 08/16/2015 Assessment and Plan 50 y/o gentleman with PMH significant for ESRD on hemodialysis, hypertension, secondary hyperparathyroidism, obstructive sleep apnea, anemia of chronic disease, type 2 diabetes mellitus with diabetic retinopathy, hyperlipidemia, DVT of upper extremity who was admitted on 08/09/2015 with fevers, now with MSSA bacteremia possibly from infected ProCal graft. Dialysis access site bleeding: POD # 3 s/p repair of bleeding left groin HD access from pseudoaneurysm of old PTFE graft with placement of new ProCol graft. had aTunneled catheter for dialysis for at least next 4 weeks until new graft matures. Vasc surgery following - OK to resume coumadin Per Surgery _ Ordered Phar-D to dose coumadin Sepsis with MSSA bacteremia, suspect secondary to infected ProCal graft ID following on IV Ancef x 4 weeks with Hemodialysis Presented with fevers from dialysis Found to have MSSA bacteremia TTE without evidence for endocarditis End-stage renal disease on hemodialysis T- Secondary hyperparathyroidism Hyponatremia Nephrology following for inpatient HD Continue prior to admission dialysis medications Dialysis diet - [id number] ml fluid restriction; which per [facility] was his baseline diet Hypertension Stable , continue [employer] SUPPORT CONSULTANT antihypertensive lisinopril, metoprolol. Note he takes these on non-dialysis days. History of upper extremity DVT On Coumadin. Pharmacy consulted for warfarin dosing. Obstructive sleep apnea Continue prior to admission CPAP per home settings. History of type 2 diabetes mellitus with complications of diabetic retinopathy His most recent hemoglobin A1c was 5.1% 05/2014 , currently below assay measurement ability range. Not on any medications. Anemia of chronic disease Stable . Monitor. DVT Prophylaxis: On Warfarin Code Status: Full Code Disposition: Pending procedure later today and input from nephrology and brian DOE DC in 1 to 2 weeks Jose Palomino Interval History No acute events overnight. Patient denies any new complains, denies chest pain, shortness of breath,No issues with discussion with nursing. -Data reviewed today: I reviewed all new labs and imaging results over the last 24 hours. I personally reviewed no images or EKG's today. Physical Exam Temp: 97.4 ??F (36.3 ??C) Temp src: Oral BP: 158/79 mmHg Heart Rate: 82 Resp: 18 SpO2: 100 % O2 Device: None (Room air) Filed Vitals: 08/12/15 0838 08/15/15 0700 08/16/15 0647 Weight: 91.4 kg (201 lb 8 oz) 92.987 kg (205 lb) 95.528 kg (210 lb 9.6 oz) Vital Signs with Ranges Temp: [97.4 ??F (36.3 ??C)-98.3 ??F (36.8 ??C)] 97.4 ??F (36.3 ??C) Heart Rate: [82-95] 82 Resp: [16-20] 18 BP: (140-172)/(63-79) 158/79 mmHg SpO2: [99 %-100 %] 100 % I/O last 3 completed shifts: In: 915 [P.O.:915] Out: - Constitutional: Middle-aged male, NAD Respiratory: CTAB no wheezing or crackles. Cardiovascular: RRR,soft systolic murmur noted. No peripheral edema. GI: Soft, non-tender, non-distended. BS normoactive. Skin/Integumen: Warm, dry Other: Medications ??? - MEDICATION INSTRUCTIONS - ??? No Medication Sleep Aids for this Patient ??? Warfarin Therapy Reminder ??? sodium chloride 0.9% 250 mL Hemodialysis Machine Once ??? epoetin mauricio (EPOGEN,PROCRIT) inj ESRD 6,000 Units Intravenous See Admin Instructions ??? - MEDICATION INSTRUCTIONS for Dialysis Patients - Does not apply See Admin Instructions ??? heparin Lock (1000 units/mL High concentration) 3 mL Intracatheter Once ??? heparin Lock (1000 units/mL High concentration) 3 mL Intracatheter Once ??? ceFAZolin 2 g Intravenous Once per day on Tue ??? ceFAZolin 3 g Intravenous Once per day on Tue ??? B gwulltd-J-evnuq acid 1 capsule Oral Daily ??? calcium acetate 1,334 mg Oral TID w/meals ??? bisacodyl 10 mg Oral Once per day on Sun Tue ??? cholecalciferol (vitamin D) tablet 2,000 Units 2,000 Units Oral Daily ??? lisinopril (PRINIVIL,ZESTRIL) tablet 20 mg 20 mg Oral Once per day on Sun Tue ??? metoprolol (LOPRESSOR) tablet 100 mg 100 mg Oral Once per day on Sun Tue ??? simvastatin 40 mg Oral QPM ??? sodium chloride (PF) 3 mL Intracatheter Q8H Data Recent Labs Lab 08/16/15 0913 08/15/15 0345 08/14/15 0340 08/13/15 1415 08/13/15 0826 08/12/15 0814 08/09/15 1250 WBC -- -- 6.5 -- 4.7 -- 4.4 < > -- HGB -- -- 7.3* -- 6.9* -- 7.7* < > -- MCV -- -- 84 -- 83 -- 81 < > -- PLT -- 138* 120* -- 131* -- 128* < > 99* INR 1.80* 1.36* 1.63* < > 3.30* 3.38* 4.38* < > -- NA -- -- 131* -- -- 131* 127* < > 132* POTASSIUM -- -- 4.5 -- -- 3.9 4.1 < > 3.6 CHLORIDE -- -- 96 -- -- 94 91* < > 94 CO2 -- -- 26 -- -- 27 23 < > 23 BUN -- -- 65* -- -- 53* 94* < > 96* CR -- -- 10.20* -- -- 8.82* 12.60* < > 14.00* ANIONGAP -- -- 9 -- -- 10 13 < > 15* JON -- -- 7.8* -- -- 8.0* 8.2* < > 8.4* GLC -- -- 118* -- -- 135* 116* < > 153* ALBUMIN -- -- -- -- -- -- -- -- 3.3* < > = values in this interval not displayed. No results found for this or any previous visit (from the past 24 hour(s)). Jose Palomino MD Internal Medicine, Hospitalist Pager#; [phone] FINISHER Jaxon Buenrostro MD - 08/16/2015 8:32 AM CST Vascular Surgery Progress Note S:No complaints. O: Vitals: BP Min: 123/55 Max: 172/77 Temp Av.9 ??F (36.6 ??C) Min: 97.4 ??F (36.3 ??C) Max: 98.3 ??F (36.8 ??C) I/O last 3 completed shifts: In: 915 [P.O.:915] Out: - Physical Exam: Right groin catheter working well. Left groin/thigh wounds=OK. + bruit new ProCol graft. Assessment/Plan: Home per Nephrology. RTO 2-3 weeks to eval new left graft. Wm. MD Rani FINISHER Caitlyn Sherwood RN - 08/15/2015 11:08 PM CST Pt. Wearing CPAP at HS , applied by RT. FINISHER Jose Palomino MD - 08/15/2015 11:35 AM CST [facility] Hospitalist Progress Note Date of Service (when I saw the patient): 08/15/2015 Assessment and Plan 50 y/o gentleman with PMH significant for ESRD on hemodialysis, hypertension, secondary hyperparathyroidism, obstructive sleep apnea, anemia of chronic disease, type 2 diabetes mellitus with diabetic retinopathy, hyperlipidemia, DVT of upper extremity who was admitted on 08/09/2015 with fevers, now with MSSA bacteremia possibly from infected ProCal graft. Dialysis access site bleeding: POD # 2 s/p repair of bleeding left groin HD access from pseudoaneurysm of old PTFE graft with placement of new ProCol graft. had aTunneled catheter for dialysis for at least next 4 weeks until new graft matures. Vasc surgery following - OK to resume coumadin Per Surgery Sepsis with MSSA bacteremia, suspect secondary to infected ProCal graft ID following on IV Ancef x 4 weeks with Hemodialysis Presented with fevers from dialysis Found to have MSSA bacteremia TTE without evidence for endocarditis End-stage renal disease on hemodialysis T-Th-Sa Secondary hyperparathyroidism Hyponatremia Nephrology following for inpatient HD Continue prior to admission dialysis medications Dialysis diet - [id number] ml fluid restriction; which per Itzel was his baseline diet Hypertension Stable , continue CALL CENTER SUPPORT CONSULTANT antihypertensive lisinopril, metoprolol. Note he takes these on non-dialysis days. History of upper extremity DVT On Coumadin. Pharmacy consulted for warfarin dosing. Obstructive sleep apnea Continue prior to admission CPAP per home settings. History of type 2 diabetes mellitus with complications of diabetic retinopathy His most recent hemoglobin A1c was 5.1% 05/2014 , currently below assay measurement ability range. Not on any medications. Anemia of chronic disease Baseline hemoglobin appears to be around 9-10, currently at baseline. Monitor. DVT Prophylaxis: Warfarin Code Status: Full Code Disposition: Pending procedure later today and input from nephrology and brian DOE DC in 1 to 2 weeks Jose Palomino Interval History No acute events overnight. Patient denies any new complains, denies chest pain, shortness of breath,abdominal pain, n/v. No issues with discussion with nursing. -Data reviewed today: I reviewed all new labs and imaging results over the last 24 hours. I personally reviewed no images or EKG's today. Physical Exam Temp: 97.7 ??F (36.5 ??C) Temp src: Axillary BP: 169/77 mmHg Pulse: 96 Heart Rate: 89 Resp: 20 SpO2:99 % O2 Device: None (Room air) Filed Vitals: 08/12/15 0500 08/12/15 0838 08/15/15 0700 Weight: 91.4 kg (201 lb 8 oz) 91.4 kg (201 lb 8 oz) 92.987 kg (205 lb) Vital Signs with Ranges Temp: [97.7 ??F (36.5 ??C)-98.7 ??F (37.1 ??C)] 97.7 ??F (36.5 ??C) Pulse: [82-104] 96 Heart Rate: [88-89] 89 Resp: [16-24] 20 BP: (86-169)/(43-78) 169/77 mmHg FiO2 (%): [30 %] 30 % SpO2: [97 %-100 %] 99 % I/O last 3 completed shifts: In: 880 [P.O.:880] Out: 3000 [Other:3000] Constitutional: Middle-aged male, NAD Respiratory: CTAB no wheezing or crackles. Cardiovascular: RRR,soft systolic murmur noted. No peripheral edema. GI: Soft, non-tender, non-distended. BS normoactive. Skin/Integumen: Warm, dry Other: Medications ??? No Medication Sleep Aids for this Patient ??? Warfarin Therapy Reminder ??? warfarin 5 mg Oral ONCE at 18:00 ??? - MEDICATION INSTRUCTIONS for Dialysis Patients - Does not apply See Admin Instructions ??? heparin Lock (1000 units/mL High concentration) 3 mL Intracatheter Once ??? heparin Lock (1000 units/mL High concentration) 3 mL Intracatheter Once ??? ceFAZolin 2 g Intravenous Once per day on Tue ??? [START ON 08/16/2015] ceFAZolin 3 g Intravenous Once per day on Tue ??? B vzfgeyp-Y-fhlnp acid 1 capsule Oral Daily ??? calcium acetate 1,334 mg Oral TID w/meals ??? bisacodyl 10 mg Oral Once per day on Sun Tue ??? cholecalciferol (vitamin D) tablet 2,000 Units 2,000 Units Oral Daily ??? lisinopril (PRINIVIL,ZESTRIL) tablet 20 mg 20 mg Oral Once per day on Sun Tue ??? metoprolol (LOPRESSOR) tablet 100 mg 100 mg Oral Once per day on Sun Tue ??? simvastatin 40 mg Oral QPM ??? sodium chloride (PF) 3 mL Intracatheter Q8H Data Recent Labs Lab 08/15/15 0345 08/14/15 0340 08/13/15 2250 08/13/15 1415 08/13/15 0826 08/12/15 0814 08/09/15 1250 WBC -- 6.5 -- 4.7 -- 4.4 < > -- HGB -- 7.3* -- 6.9* -- 7.7* < > -- MCV -- 84 -- 83 -- 81 < > -- PLT 138* 120* -- 131* -- 128* < > 99* INR 1.36* 1.63* 1.72* 3.30* 3.38* 4.38* < > -- NA -- 131* -- -- 131* 127* < > 132* POTASSIUM -- 4.5 -- -- 3.9 4.1 < > 3.6 CHLORIDE -- 96 -- -- 94 91* < > 94 CO2 -- 26 -- -- 27 23 < > 23 BUN -- 65* -- -- 53* 94* < > 96* CR -- 10.20* -- -- 8.82* 12.60* < > 14.00* ANIONGAP -- 9 -- -- 10 13 < > 15* JON -- 7.8* -- -- 8.0* 8.2* < > 8.4* GLC -- 118* -- -- 135* 116* < > 153* ALBUMIN -- -- -- -- -- -- -- 3.3* < > = values in this interval not displayed. No results found for this or any previous visit (from the past 24 hour(s)). Jose Palomino MD Internal Medicine, Hospitalist Pager#; [phone] FINISHER Wojciech Holman MD - 08/15/2015 10:54 AM CST Renal Medicine Orders for cefazolin called to Philippe Arcos ( 2gm TTH and 3 gm S) Plan am dialysis here Presumed outpatient 08/19/15 Recent Labs Lab 08/14/15 0340 NA 131* POTASSIUM 4.5 CHLORIDE 96 CO2 26 ANIONGAP 9 GLC 118* BUN 65* CR 10.20* GFRESTIMATED 5* GFRESTBLACK 7* JON 7.8* Rell Holman [facility] [phone] FINISHER Tyrel Haro MD - 08/15/2015 10:30 AM CST [facility] Infectious Disease Progress Note Assessment and Plan: IMPRESSION: 1. Julio Cesar Sandhu is a 50-year-old male with diabetes mellitus. 2. End-stage renal disease, on hemodialysis. 3. Admitted on this occasion with acute onset of fever to 103 degrees and now found to have bacteremia with MSSA. ? infected ProCol graft in the left leg. Bacteremia has cleared and no obvious secondary sites 4. S/p revision L groin ProCol graft with excision of graft hematoma and partial resection of graft 08/13. Not clear infection RECOMMENDATIONS: 1. Cont IV Ancef with dialysis. Would give for total of 4 wks. Day 7 today 2 At dialysis,2,2,3 gr for 3 more weeks Interval History: Remains afebrile. Follow-up blood cxs 08/11 on neg. Surgery 08/13 as above. No new c/o or pain sites, op noted no clear infection. Medications: ??? warfarin 5 mg Oral ONCE at 18:00 ??? heparin Lock (1000 units/mL High concentration) 3 mL Intracatheter Once ??? heparin Lock (1000 units/mL High concentration) 3 mL Intracatheter Once ??? ceFAZolin 2 g Intravenous Once per day on Tue ??? [START ON 08/16/2015] ceFAZolin 3 g Intravenous Once per day on Tue ??? B yaiqnwc-H-xylrs acid 1 capsule Oral Daily ??? calcium acetate 1,334 mg Oral TID w/meals ??? bisacodyl 10 mg Oral Once per day on Sun Tue ??? cholecalciferol (vitamin D) tablet 2,000 Units 2,000 Units Oral Daily ??? lisinopril (PRINIVIL,ZESTRIL) tablet 20 mg 20 mg Oral Once per day on Sun Tue ??? metoprolol (LOPRESSOR) tablet 100 mg 100 mg Oral Once per day on Sun Tue ??? simvastatin 40 mg Oral QPM ??? sodium chloride (PF) 3 mL Intracatheter Q8H Physical Exam: Blood pressure 169/77, pulse 96, temperature 97.7 ??F (36.5 ??C), temperature source Axillary, resp.rate 20, weight 92.987 kg (205 lb), SpO2 99 %. @WEIGHT1@ Vital Signs with Ranges Temp: [97.7 ??F (36.5 ??C)-98.7 ??F (37.1 ??C)] 97.7 ??F (36.5 ??C) Pulse: [82-104] 96 Heart Rate: [80-90] 89 Resp: [14-24] 20 BP: (86-169)/(43-78) 169/77 mmHg FiO2 (%): [30 %] 30 % SpO2: [97 %-100 %] 99 % Constitutional: Awake, alert, cooperative, no apparent distress looks OK Lungs: Clear to auscultation bilaterally, no crackles or wheezing Cardiovascular: Regular rate and rhythm, normal S1 and S2, and no murmur noted Abdomen: Normal bowel sounds, soft, non-distended, non-tender Skin: No rashes, no cyanosis, no edema no cellulitis or embolic lesions Other: Data: All microbiology laboratory data reviewed. Recent Labs Lab Test 08/15/1534408/14/15 03408/13/15 1415 08/12/15 0814 WBC -- 6.5 4.7 4.4 HGB -- 7.3* 6.9* 7.7* HCT -- 22.4* 21.9* 23.2* MCV -- 84 83 81 PLT 138* 120* 131* 128* Recent Labs Lab Test 08/14/15 03408/13/15 0826 08/12/15 0814 CR 10.20* 8.82* 12.60* No lab results found. FINISHER Raquel Tanner - 08/15/2015 10:14 AM CST BRIEF NUTRITION ASSESSMENT REASON FOR ASSESSMENT: LOS CURRENT DIET AND NOURISHMENT ORDER: Information obtained from Patient and [facility] Patient is on a renal/dialysisdiet at home- assuming pt is following a dialysis diet at home. Pt is developmentally declined and hard to obtain information from. Pt caregivers (aunt and mother) were not present at the time of the assessment. Typical food/fluid intake is adequate. Pt states that he gets enough food at home. 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 Patient is consuming the following supplements at home: The pt says he does not take any oral nutrition supplements at home. Diet: Dialysis/ fluid restriction Current Intake/Tolerance: Per diet record, pt is consuming 100% of his meals. Pt is eating well but states that he does not like the meals here. ANTHROPOMETRICS: Height: 5'4 Weight: 87.5 kg BMI: 33.65 kg/m2 IBW: 59.1 kg %IBW: 148% Weight History: Note wt gain is likely from hemodialysis/fluid retention Wt Readings from Last 10 Encounters: 08/15/15 92.987 kg (205 lb) 07/02/15 90.719 kg (200 lb) 06/19/14 99.2 kg (218 lb 11.1 oz) 05/08/14 83.779 kg (184 lb 11.2 oz) 06/28/13 75.751 kg (167 lb) 06/21/13 83.4 kg (183 lb 13.8 oz) 05/23/13 79.9 kg (176 lb 2.4 oz) 03/23/13 82 kg (180 lb 12.4 oz) 11/08/12 74.39 kg (164 lb) 09/20/12 76.204 kg (168 lb) LABS: 08/14 Sodium (L) 131 mmol/L Creatinine (H) 10.2 mg/dL HgbA1C (L) 5.1% NUTRITION STATUS VALIDATION: Weight Status: Obesity Grade I BMI 30-34.9 Patient does not meet two of the following criteria necessary for diagnosing malnutrition: significant weight loss, reduced intake, subcutaneous fat loss, muscle loss or fluid retention INTERVENTION: Nutrition Diagnosis: No nutrition diagnosis at this time. Implementation: Nutrition Education: (Per MD order, as appropriate) Follow Up/Monitoring: Will re-evaluate in 7 days, or sooner, if nutritional status changes. Raquel Tanner Remote Sensing Specialist FINISHER Associated attestation - Angelika Patiño RD, LD - 08/15/2015 10:51 AM WOOD FINISHER I have reviewed and agree with the following note. Patient appears to be eating well and ordering adequate amounts of food. ADIEL Forde Pager: [phone] Jaxon Buenrostro MD - 08/15/2015 8:49 AM CST Vascular Surgery Progress Note Subjective: Afebrile. Up in chair this morning. Denies pain. Successful placement of left femoral tunneled catheter in IR yesterday. Objective: BP 169/77 mmHg Pulse 96 Temp(Src) 97.7 ??F (36.5 ??C) (Axillary) Resp 20 Wt 92.987 kg (205 lb) SpO2 99% Gen: Alert, NAD CV: RRR Pulm: nonlabored breathing Ext: LLE groin incisions c/d/i, palpable thrill in new graft, RLE with tunneled catheter in place Blood cultures from 08/14 ans 08/15 prelim no growth. Assessment/Plan: Julio Cesar Sandhu is a 50 year old male POD # 2 s/p repair of bleeding left groin HD access from pseudoaneurysm of old PTFE graft with placement of new ProCol graft. No evidence of infection intra-op. -Tunneled catheter for dialysis for at least next 4 weeks until new graft matures. - ABx per ID - Cont coumadin Please page with any questions or concerns. Rosa Carroll MD - Shuttle Inspector - [phone] Staff; As above. OK home with tunnneled catheter and antibiotics with dialysis. RTO 3-4 weeks. Jaxon Buenrostro MD FINISHER Fern Black, LINDA - 08/15/2015 4:00 AM CST Sepsis Protocol: Lactic Acid and Q30 min vitals ordered per sepsis protocol for HR 102-104 and RR 22-24. LA result: 0.8. Pt has productive cough, LS diminished (unable to take deep breaths). New tunneled dialysis cath placed on 08/14/15 has loose drsg. Flying squad paged for drsg mgmt. Will CTM. Layla Kinnye RN - 08/14/2015 4:13 PM CST POTASSIUM Date Value Ref Range Status 08/14/2015 4.5 3.4 - 5.3 mmol/L Final ] HGB 7.3 08/14/2015 Weight: 91.4 kg (201 lb 8 oz) POST WT DIALYSIS PROCEDURE NOTE Patient dialyzed for 3 hrs on a 3 K bath with a net fluid removal of 3.5L. A BFR of 300-400ml/min was obtained via R Femoral catheter. Patient was seen by during treatment. Total heparin received during treatment:: 0 units. Heparin instilled in both ports post run. Meds given:none Complications: Arterial alarms when pt lying on side also hypotensive and complaints of dizzyness last 30min of run. Treatment cut 30 min. BP and symptoms improved. Procedure and ESRD teaching done and questionsanswered. See flowsheet in EPIC for further details and post assessment. Machine water alarm in place and functioning. HEPATITIS B SURFACE ANTIGEN unknown HEPATITIS B SURFACE ANTIBODY immuneDATE 07/13/2015 CHLORINE AND CHLORAMINES CHECK on WATER SYSTEM EVERY 4 hours. Catheter Access: Aseptic prep done for both on/off. Report received from: Blessing Ann RN Report given to: Beto Elizabeth RN Outpatient Dialysis at [facility], , Layla Andrade RN [facility] FINISHER Wojciech Holman MD - 08/14/2015 1:25 PM CST Renal Medicine Inpatient Dialysis Note Julio Cesar Sandhu Age: [age] year old Date of : 1965 Date of Admission: 08/09/2015 Hospital LOS: 5 Assessment/Plan: Admitted with fever. Found to be bacteremic. Concern regarding possible graft Infection 1. ESRD 2. Anemia 3. Gram positive bacteremia 4. HTN 5. Anticoagulated Dr. Velez notes reviewed Tunneled catheter placed Seen during course of run. Interval History: Seen during course of dialysis run. Run parameters reviewed with sub prior. BFR adequate at 400. MWF schedule. Complete antibiotic course ROS R: NEGATIVE for significant cough or SOB CV: NEGATIVE for chest pain, palpitations GI: NEGATIVE for abdominal pain, heartburn, nausea, vomiting or change in bowel pattern EXT: no change edema ROS otherwise negative Dialysis Parameters: Vitals were reviewed Patient Vitals for the past 8 hrs: BP Temp Temp src Pulse Heart Rate Resp SpO2 08/14/15 1219 144/73 mmHg 97.9 ??F (36.6 ??C) Axillary 82 - 16 97 % 08/14/15 1115 131/63 mmHg - - - 80 16 97 % 08/14/15 1110 123/58 mmHg - - - 90 14 97 % 08/14/15 1100 153/76 mmHg - - - 81 14 100 % 08/14/15 1050 154/72 mmHg - - - 80 16 100 % 08/14/15 1042 160/76 mmHg - - - 84 16 100 % 08/14/15 0742 142/76 mmHg 98.8 ??F (37.1 ??C) Oral 86 - 16 100 % I/O last 3 completed shifts: In: 1640 [P.O.:840; I.V.:500] Out: 25 [Blood:25] Filed Vitals: 08/09/15 1148 08/11/15 0556 08/11/15 1100 08/12/15 0500 Weight: 87.4 kg (192 lb 10.9 oz) 87.5 kg (192 lb 14.4 oz) 89.903 kg (198 lb 3.2 oz) 91.4 kg (201 lb 8 oz) 08/12/15 0838 Weight: 91.4 kg (201 lb 8 oz) Current Weight: no weight today Dry Weight: 87 Dialysis Temp: 36.5 ??C Access Device: graft Access Site: left femoral Dialyzer: Revaclear Dialysis Bath: 3 Sodium Profile: n UF Goal: 3 to 4 Blood Flow Rate (mL/min): 400 Total Treatment Time (hrs): 3.5 Heparin: Low dose as required EPO dose: y Zemplar: n IV Fe: n Medications and Allergies: Reviewed Physical Exam: Seen and examined during course of dialysis run BP 144/73 mmHg Pulse 82 Temp(Src) 97.9 ??F (36.6 ??C) (Axillary) Resp 16 Wt 91.4 kg (201 lb 8 oz) SpO2 97% GENERAL: awake, alert, follows HEENT: NC/AT, PERRLA, EOMI, non icteric, pharynx moist without lesion RESP: clear CV: RRR, normal S1 S2 ABDOMEN: S/NT, BS present MS: trace edema EXT: access canulated without issue NEURO: speech normal and cranial nerves 2-12 intact PSYCH: mentation appears normal and affect flat Data: Recent Labs Lab 08/14/15 0340 NA 131* POTASSIUM 4.5 CHLORIDE 96 CO2 26 ANIONGAP 9 GLC 118* BUN 65* CR 10.20* GFRESTIMATED 5* GFRESTBLACK 7* JON 7.8* Recent Labs Lab 08/14/15 0340 08/13/15 1415 08/12/15 0814 08/10/15 0824 08/09/15 1250 PHOS -- -- -- -- 2.3* HGB 7.3* 6.9* 7.7* 8.2* -- Recent Labs Lab Test 08/04/12 0930 HEPBANG Negative HBSAB 5.0 G Jagdeep Holman [facility] - Nephrology [phone] Darrian Cisneros MD - 08/14/2015 11:15 AM CST RADIOLOGY PROCEDURE NOTE Patient name: Julio Cesar Sandhu : 1965 Pre-procedure diagnosis: Renal failure Post-procedure diagnosis: Same Procedure Date/Time: August 14, 2015 11:15 AM Procedure: Tunneled dialysis catheter placement Estimated blood loss: None Specimen(s) collected with description: none The patient tolerated the procedure well with no immediate complications. Significant findings:14.5 fr 28 cm Palindrome catheter placed via right CFV access. Tip of catheter in IVC. See imaging dictation for procedural details. Provider name: Darrian Moya [employer] Consultant(s):None Blessing Meredith RN - 08/14/2015 10:49 AM CST Interventional Radiology Intra-procedural Nursing Note Patient Name: Julio Cesar Sandhu Today's Date: August 14, 2015 Start Time: 1045 End of procedure time: 1111 Procedure: Tunneled Femoral Dialysis Catheter Placement with Dr. Latoya Dugan Precision H Chronic Catheter 14.5 Somali x 28 cm Lot [id number]/ Ref [id number] Exp 2017-10-23 Report given to: LINDA Noyola Time pt departs: 1129 Fire Risk Assessment: 0-1 1038 - Pt transferred to procedure table into supine position. Skin prepped with chloroprep (CHG 2%)and draped. 1051 - Procedure started with Dr. Moya. 1111 - EOC. Pt tolerated well. VSS. Dressing applied to right groin. 115 - Patient transferred from table to cart. 1129 - Pt transferred to [facility] via cart. Report given. No bleeding, oozing, or hematoma noted to site. Other Notes: Blessing Ann RN FINISHER Naya Vazquez - 08/14/2015 10:30 AM CST 08/14/15 1000 Visit Information Visit Made By Refining Engineer Hand Leather Trimmer (Level 1) Type of Visit Initial Visited Patient [facility] Progress Note [facility] This was visit per LOS. Pt was unavailable (not in his room). [facility] attempts another visit in the pm hours. Naya Vazquez Refining Engineer Hand Leather Trimmer FINISHER Jose Palomino MD - 08/14/2015 9:58 AM CST [facility] Hospitalist Progress Note Date of Service (when I saw the patient): 08/13/2015 Assessment and Plan 50 y/o gentleman with PMH significant for ESRD on hemodialysis, hypertension, secondary hyperparathyroidism, obstructive sleep apnea, anemia of chronic disease, type 2 diabetes mellitus with diabetic retinopathy, hyperlipidemia, DVT of upper extremity who was admitted on 08/09/2015 with fevers, now with MSSA bacteremia possibly from infected ProCal graft. Dialysis access site bleeding: Femoral acces site bled overnight s/p revision L groin ProCol graft with excision of graft hematoma and partial resection of graft 08/13. _ going to IR suite for Tunneled dialysis catheter placement later today Sepsis with MSSA bacteremia, suspect secondary to infected ProCal graft ID following on IV Ancef x 4 weeks with Hemodialysis Presented with fevers from dialysis Found to have MSSA bacteremia TTE without evidence for endocarditis End-stage renal disease on hemodialysis T Secondary hyperparathyroidism Hyponatremia Nephrology consulted for inpatient HD Continue prior to admission dialysis medications Dialysis diet - Add 1500 ml fluid restriction; which per Itzel was his baseline diet Hypertension Blood pressure moderately elevated Continue home lisinopril, metoprolol. Note he takes these on non-dialysis days. History of upper extremity DVT On Coumadin. Pharmacy consulted for warfarin dosing. Obstructive sleep apnea Continue prior to admission CPAP per home settings. 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 He is not presently on any medications for this. Recheck hemoglobin A1c ordered; reportedly is too low to be read on current assay Anemia of chronic disease Baseline hemoglobin appears to be around 9-10, currently at baseline. Monitor. DVT Prophylaxis: Warfarin Code Status: Full Code Disposition: Pending procedure later today and input from nephrology and brian DOE DC in 1 to 2 weeks Janice Gaspar Interval History No acute events overnight. Patient denies any new complains, denies chest pain, shortness of breath,abdominal pain, n/v. No issues with discussion with nursing. -Data reviewed today: I reviewed all new labs and imaging results over the last 24 hours. I personally reviewed no images or EKG's today. Physical Exam Temp: 98.1 ??F (36.7 ??C) Temp src: Oral BP: 175/81 mmHg Pulse: 86 Heart Rate: 80 Resp: 18 SpO2: 100% O2 Device: None (Room air) Filed Vitals: 08/11/15 1100 08/12/15 0500 08/12/15 0838 Weight: 89.903 kg (198 lb 3.2 oz) 91.4 kg (201 lb 8 oz) 91.4 kg (201 lb 8 oz) Vital Signs with Ranges Temp: [97.7 ??F (36.5 ??C)-98.7 ??F (37.1 ??C)] 98.1 ??F (36.7 ??C) Pulse: [74-86] 86 Heart Rate: [76-80] 80 Resp: [18] 18 BP: (130-175)/(59-81) 175/81 mmHg SpO2: [99 %-100 %] 100 % I/O last 3 completed shifts: In: 1010 [P.O.:1010] Out: 3500 [Other:3500] Constitutional: Middle-aged male, NAD Respiratory: CTAB no wheezing or crackles. Cardiovascular: RRR,soft systolic murmur noted. No peripheral edema. GI: Soft, non-tender, non-distended. BS normoactive. Skin/Integumen: Warm, dry Other: Medications ??? No Medication Sleep Aids for this Patient ??? Warfarin Therapy Reminder ??? ceFAZolin 2 g Intravenous Once per day on Tue ??? [START ON 08/16/2015] ceFAZolin 3 g Intravenous Once per day on Tue ??? B ciovwor-W-nrico acid 1 capsule Oral Daily ??? calcium acetate 1,334 mg Oral TID w/meals ??? bisacodyl 10 mg Oral Once per day on Sun Tue ??? cholecalciferol (vitamin D) tablet 2,000 Units 2,000 Units Oral Daily ??? lisinopril (PRINIVIL,ZESTRIL) tablet 20 mg 20 mg Oral Once per day on Sun Tue ??? metoprolol (LOPRESSOR) tablet 100 mg 100 mg Oral Once per day on Tue ??? simvastatin 40 mg Oral QPM ??? sodium chloride (PF) 3 mL Intracatheter Q8H Data Recent Labs Lab 08/13/15 0826 08/12/15 0814 08/11/15 0838 08/10/15 0824 08/09/15 1250 WBC -- 4.4 -- 5.3 -- -- HGB -- 7.7* -- 8.2* -- -- MCV -- 81 -- 81 -- -- PLT -- 128* -- 89* -- 99* INR 3.38* 4.38* 4.58* 3.70* < > -- NA 131* 127* 129* 128* -- 132* POTASSIUM 3.9 4.1 3.9 4.1 -- 3.6 CHLORIDE 94 91* 93* 91* -- 94 CO2 27 23 24 18* -- 23 BUN 53* 94* 80* 120* -- 96* CR 8.82* 12.60* 10.90* 16.10* -- 14.00* ANIONGAP 10 13 12 19* -- 15* JON 8.0* 8.2* 8.2* 8.4* -- 8.4* GLC 135* 116* 96 110* -- 153* ALBUMIN -- -- -- -- -- 3.3* < > = values in this interval not displayed. No results found for this or any previous visit (from the past 24 hour(s)). Jose Palomino MD Internal Medicine, Hospitalist Pager#; [phone] FINISHER Jaxon Buenrostro MD - 08/14/2015 8:13 AM CST Vascular Surgery Progress Note S: Sitting up in chair this morning. Very comfortable. O: Vitals: BP Min: 131/63 Max: 175/81 Temp Av.2 ??F (36.8 ??C) Min: 97.3 ??F (36.3 ??C) Max: 99 ??F (37.2 ??C) Pulse Av.5 Min: 77 Max: 86 I/O last 3 completed shifts: In: 1640 [P.O.:840; I.V.:500] Out: 25 [Blood:25] Physical Exam: Alert. Left groin surgical sites looked good. Good bruit within newly placed ProCol graft. White blood count= 6.5 Hemoglobin= 7.3 INR= 1.63 Potassium= 4.5 Assessment/Plan: Stable after repair of bleeding left groin access from pseudoaneurysm of old PTFE graft. We placed a new ProCol graft that is anastomosed to the proximal arterial PTFE graft and outflow PTFE into the venous system. Neither of these had any signs of infection. We removed the hematoma an d overlying skin of the disrupted graft and several centimeters of the graft. We did leave in some proximal and distal PTFE graft is nonfunctional that was very well incorporated. This had no evidence of infection. Patient will need temporary dialysis via a tunneled catheter which will need to be placed in his right groin over the new graft matures. He has very limited access with none in the upper extremities. I discussed this with Dr. Moya of interventional radiology today along with his dialysis nurse. Patient may continue on his Coumadin since the bleeding was due to a disruption in the graft and nohematological problems. He is on this due to his access and history of DVT. We'll need to see how long he needs to stay in the hospital due to the femoral tunnel catheter though this can be taken care of as an outpatient. There is a higher risk of infection with these but he will be on antibiotics perDrLorena Ramachandran due to his sepsis. Wm. Rani MD FINISHER Artis, Raúl Crenshaw MD - 08/14/2015 7:39 AM CST [facility] Infectious Disease Progress Note Assessment and Plan: IMPRESSION: 1. Julio Cesar Sandhu is a 50-year-old male with diabetes mellitus. 2. End-stage renal disease, on hemodialysis. 3. Admitted on this occasion with acute onset of fever to 103 degrees and now found to have bacteremia with MSSA. ? infected ProCol graft in the left leg. 4. S/p revision L groin ProCol graft with excision of graft hematoma and partial resection of graft 08/13. RECOMMENDATIONS: 1. Cont IV Ancef with dialysis. Would give for total of 4 wks. Would cont same schedule at dialysis after discharge. 3. Follow serial blood cultures. Cxs from 08/10 pos, cxs from 08/11 on remain neg. Interval History: Remains afebrile. Follow-up blood cxs as above. Surgery yesterday as above. No new c/o. Medications: ??? epoetin mauricio (EPOGEN,PROCRIT) inj ESRD 8,000 Units Intravenous See Admin Instructions ??? ceFAZolin 2 g Intravenous Once per day on Tue ??? [START ON 08/16/2015] ceFAZolin 3 g Intravenous Once per day on Tue ??? B fonfntf-I-famvo acid 1 capsule Oral Daily ??? calcium acetate 1,334 mg Oral TID w/meals ??? bisacodyl 10 mg Oral Once per day on Sun Tue ??? cholecalciferol (vitamin D) tablet 2,000 Units 2,000 Units Oral Daily ??? lisinopril (PRINIVIL,ZESTRIL) tablet 20 mg 20 mg Oral Once per day on Sun Tue ??? metoprolol (LOPRESSOR) tablet 100 mg 100 mg Oral Once per day on Sun Tue ??? simvastatin 40 mg Oral QPM ??? sodium chloride (PF) 3 mL Intracatheter Q8H Physical Exam: Blood pressure 154/69, pulse 77, temperature 98.6 ??F (37 ??C), temperature source Oral, resp. rate 16, weight 91.4 kg (201 lb 8 oz), SpO2 99 %. @WEIGHT1@ Vital Signs with Ranges Temp: [97.3 ??F (36.3 ??C)-99 ??F (37.2 ??C)] 98.6 ??F (37 ??C) Pulse: [77] 77 Heart Rate: [75-81] 77 Resp: [13-23] 16 BP: (131-175)/(63-81) 154/69 mmHg SpO2: [97 %-100 %] 99 % Constitutional: Awake, alert, cooperative, no apparent distress Lungs: Clear to auscultation bilaterally, no crackles or wheezing Cardiovascular: Regular rate and rhythm, normal S1 and S2, and no murmur noted Abdomen: Normal bowel sounds, soft, non-distended, non-tender Skin: No rashes, no cyanosis, no edema Other: Data: All microbiology laboratory data reviewed. Recent Labs Lab Test 08/14/15 0340 08/13/15 1415 08/12/15 0814 WBC 6.5 4.7 4.4 HGB 7.3* 6.9* 7.7* HCT 22.4* 21.9* 23.2* MCV 84 83 81 PLT 120* 131* 128* Recent Labs Lab Test 08/14/15 0340 08/13/15 0826 08/12/15 0814 CR 10.20* 8.82* 12.60* No lab results found. FINISHER Fern Black, LINDA - 08/14/2015 4:49 AM CST Discontinued soft wrist restraints from pt. Calm and cooperative, A&Ox3 (date). Pt following commands, is not pulling or picking at lines. Pt states he does not remember pulling at lines or pickingat graft site previously. Pts left hand in mitt to avoid accidental scratching of grafts while sleeping. CMS intact. CTM. FINISHER Enrike Diaz MD - 08/13/2015 10:16 PM CST Cross cover [id number] Soft restraints ordered for patient trying to pull lines following surgery; patient with h/o mental retardation per nursing; patient not hypoxic FINISHER Emile Elizabeth RN - 08/13/2015 3:12 PM CST Received call from lab re: Hgb 6.9. Order already in place for blood transfusion if Hgb <7. Will transfuse and continue to monitor. FINISHER Janice Gaspar MD - 08/13/2015 2:29 PM CST Hospitalist update note: Received call from RN that patient noted to be bleeding from dialysis site, believed to be coming from skin tear but with slight pulsatility to it. Soaked through several layers of bedding as well as pooled around his body/leg. Patient complains of light-headedness, otherwise no new complaints. HR 76,BP wnl. Dialysis site with skin tear, non-bleeding. - STAT CBC, INR, type and screen - By my arrival hemostasis had been obtained with pressure, pressure dressing subsequently applied - Consent for blood products obtained from patient and patientt's medical decision maker - Pharmacy consult for INR reversal - Prepare 2 units pRBC; transfuse <7 g/dl - Prepare 2 units FFP, can hold transfusion if no active bleeding - Discussed with Dr. Buenrostro, anticipate will take to OR this afternoon/evening to evaluate fistula - Discussed with aunt via phone Janice Gaspar MD Hospitalist [phone] FINISHER Jaxon Buenrostro MD - 08/13/2015 2:27 PM CST Vascular Surgery Progress Note S: Significant bleeding from left graft. O: Vitals: BP Min: 131/63 Max: 175/81 Temp Av.2 ??F (36.8 ??C) Min: 97.7 ??F (36.5 ??C) Max: 98.7 ??F (37.1 ??C) Pulse Av Min: 86 Max: 86 I/O last 3 completed shifts: In: 1010 [P.O.:1010] Out: 3500 [Other:3500] Physical Exam: Bleeding has stopped. Good thrill in access. Bleeding site was from central skin tear. This overlies area of hematoma Assessment/Plan: Bleeding from graft at site of anastomosis of PTFE to ProCol. ? Infection. Needs exploration tonight since high risk of rebleeding. May need to ligate graft. Wm. Rani MD Wojciech Puentes MD - 08/13/2015 11:36 AM CST Renal Medicine Chart Check Plan am dialysis Orders entered Recent Labs Lab 08/13/15 0826 NA 131* POTASSIUM 3.9 CHLORIDE 94 CO2 27 ANIONGAP 10 GLC 135* BUN 53* CR 8.82* GFRESTIMATED 6* GFRESTBLACK 8* JON 8.0* Rell Holman [facility] [phone] Shahzad Vega MD - 08/13/2015 9:11 AM CST Subjective: Patient is sitting in the chair eating. He had dialysis yesterday without issue. He currently denies pain in the left leg. Also, denies fevers and chills. Objective: BP 175/81 mmHg Pulse 86 Temp(Src) 98.1 ??F (36.7 ??C) (Oral) Resp 18 Wt 91.4 kg (201 lb 8 oz) SpO2 100% Gen: NAD, alert and oriented x3. Cardiac: RRR Pulm: CTA Abd: soft, NT, nD Ext: warm and well perfused. Left thigh A-V graft with good thrill. There is minimal warmth. A smallarea of skin has broken down over previous poke sites and there appears to be a small amount of serosang drainage from this site from the edge of the skin. Does not appear to communicate with the hematoma. WBC 4.4 INR 3.38 Assessment: 50 yo male with bacteremia (MSSA) and US suggesting fluid around the proximal AV-graft worrisome for infection, so far antibiotic graft salvage seems effective. Plan: Continue antibiotic therapy Continue with graft salvage attempt since he has limited access options BCx2 positive for MSSA, more recent cultures still negative. Will follow the wound in the left groin FINISHER Artis, Raúl Crenshaw MD - 08/13/2015 8:18 AM CST [facility] Infectious Disease Progress Note Assessment and Plan: IMPRESSION: 1. Julio Cesar Sandhu is a 50-year-old male with diabetes mellitus. 2. End-stage renal disease, on hemodialysis. 3. Admitted on this occasion with acute onset of fever to 103 degrees and now found to have bacteremia with MSSA. ? infected ProCol graft in the left leg. RECOMMENDATIONS: 1. Cont IV Ancef with dialysis 3. Follow serial blood cultures. Cxs from 08/10 pos, cxs from 08/11 and 08/12 neg thus far. Interval History: Remains afebrile. Follow-up blood cxs as above. Medications: ??? ceFAZolin 2 g Intravenous Once per day on Tue ??? [START ON 08/16/2015] ceFAZolin 3 g Intravenous Once per day on Tue ??? B odlcpiw-B-ckuyh acid 1 capsule Oral Daily ??? calcium acetate 1,334 mg Oral TID w/meals ??? bisacodyl 10 mg Oral Once per day on Sun Tue ??? cholecalciferol (vitamin D) tablet 2,000 Units 2,000 Units Oral Daily ??? lisinopril (PRINIVIL,ZESTRIL) tablet 20 mg 20 mg Oral Once per day on Sun Tue ??? metoprolol (LOPRESSOR) tablet 100 mg 100 mg Oral Once per day on Sun Tue ??? simvastatin 40 mg Oral QPM ??? sodium chloride (PF) 3 mL Intracatheter Q8H Physical Exam: Blood pressure 150/77, pulse 86, temperature 97.7 ??F (36.5 ??C), temperature source Axillary, resp.rate 18, weight 91.4 kg (201 lb 8 oz), SpO2 100 %. @WEIGHT1@ Vital Signs with Ranges Temp: [97.7 ??F (36.5 ??C)-98.7 ??F (37.1 ??C)] 97.7 ??F (36.5 ??C) Pulse: [74-86] 86 Heart Rate: [76] 76 Resp: [18] 18 BP: (130-181)/(59-83) 150/77 mmHg SpO2: [99 %-100 %] 100 % Constitutional: Awake, alert, cooperative, no apparent distress Lungs: Clear to auscultation bilaterally, no crackles or wheezing Cardiovascular: Regular rate and rhythm, normal S1 and S2, and no murmur noted Abdomen: Normal bowel sounds, soft, non-distended, non-tender Skin: No rashes, no cyanosis, no edema Other: Data: All microbiology laboratory data reviewed. Recent Labs Lab Test 08/12/15 0814 08/10/15 0824 08/09/15 1250 07/02/15 0627 06/10/14 0713 WBC 4.4 5.3 -- -- -- 6.3 HGB 7.7* 8.2* -- 10.6* < > 7.3* HCT 23.2* 24.8* -- -- -- 24.3* MCV 81 81 -- -- -- 84 PLT 128* 89* 99* -- < > 105* < > = values in this interval not displayed. Recent Labs Lab Test 08/12/15 0814 08/11/15 0838 08/10/15 0824 CR 12.60* 10.90* 16.10* No lab results found. FINISHER Janice Gaspar MD - 08/12/2015 4:30 PM CST [facility] Hospitalist Progress Note Date of Service (when I saw the patient): 08/12/2015 Assessment and Plan Julio Cesar Sandhu is a 50 year old male with past medical history significant for end-stage renal disease on hemodialysis, hypertension, secondary hyperparathyroidism, obstructive sleep apnea, anemiaof chronic disease, type 2 diabetes mellitus with diabetic retinopathy, hyperlipidemia, DVT of upper extremity who was admitted on 08/09/2015 with fevers, now with MSSA bacteremia possibly from infected ProCal graft. Sepsis with MSSA bacteremia, suspect secondary to infected ProCal graft Presented with fevers from dialysis unit. Infectious work-up initially unremarkable for source, blood cultures positive with MSSA Blood cultures from admission positive 2 out of 2 for MSSA TTE without evidence for endocarditis Interval development of complex perigraft fluid collection on arterial US, suspect this may represent the source of his infection and bacteremia Infectious disease following Continue IV ancef with HD per ID - Last positive culture to date is 08/10/15, first negative from 08/11/15 - Vascular surgery following, challenging situation given difficulty with access elsewhere. Continuing antibiotic treatment and monitoring response, no definitive plan for graft removal/revision at this time. End-stage renal disease on hemodialysis T- Secondary hyperparathyroidism Nephrology consulted for inpatient HD Dialysis diet Continue prior to admission dialysis medications Hypertension Blood pressure moderately elevated Continue home lisinopril, metoprolol. Note he takes these on non-dialysis days. History of upper extremity DVT On Coumadin. - Pharmacy consulted for warfarin dosing. Obstructive sleep apnea Continue prior to admission CPAP per home settings. 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 He is not presently on any medications for this. Recheck hemoglobin A1c ordered; reportedly is too low to be read on current assay Anemia of chronic disease Baseline hemoglobin appears to be around 9-10, currently at baseline. Monitor. DVT Prophylaxis: Warfarin Code Status: Full Code Disposition: Inpatient status for bacteremia, IV antibiotics. Discharge timing unclear, pending final antibiotic plan and determination from vascular surgery that no inpatient intervention on graft required. Janice Gaspar Interval History No acute events overnight. Patient denies any new complains, denies chest pain, shortness of breath,abdominal pain, n/v, diarrhea. -Data reviewed today: I reviewed all new labs and imaging results over the last 24 hours. I personally reviewed no images or EKG's today. Physical Exam Temp: 98.7 ??F (37.1 ??C) Temp src: Oral BP: 153/76 mmHg Pulse: 86 Heart Rate: 83 Resp: 18 SpO2: 99 % O2 Device: None (Room air) Filed Vitals: 08/11/15 1100 08/12/15 0500 08/12/15 0838 Weight: 89.903 kg (198 lb 3.2 oz) 91.4 kg (201 lb 8 oz) 91.4 kg (201 lb 8 oz) Vital Signs with Ranges Temp: [97.7 ??F (36.5 ??C)-98.7 ??F (37.1 ??C)] 98.7 ??F (37.1 ??C) Pulse: [74-86] 86 Heart Rate: [83] 83 Resp: [18-19] 18 BP: (130-181)/(59-83) 153/76 mmHg SpO2: [99 %-100 %] 99 % I/O last 3 completed shifts: In: 1490 [P.O.:1490] Out: 3500 [Other:3500] Constitutional: Middle-aged male, NAD Respiratory: Clear to auscultation bilaterally, good air movement bilaterally Cardiovascular: RRR, II/ systolic murmur heard best at RUSB. No peripheral edema. GI: Soft, non-tender, non-distended. BS normoactive. Skin/Integumen: Warm, dry Other: Medications ??? No Medication Sleep Aids for this Patient ??? Warfarin Therapy Reminder ??? warfarin-No DOSE today 1 each Does not apply no dose today (warfarin) ??? ceFAZolin 2 g Intravenous Once per day on Tue ??? [START ON 08/16/2015] ceFAZolin 3 g Intravenous Once per day on Tue ??? B zjzgzig-Q-eaepg acid 1 capsule Oral Daily ??? calcium acetate 1,334 mg Oral TID w/meals ??? bisacodyl 10 mg Oral Once per day on Sun Tue ??? cholecalciferol (vitamin D) tablet 2,000 Units 2,000 Units Oral Daily ??? lisinopril (PRINIVIL,ZESTRIL) tablet 20 mg 20 mg Oral Once per day on Sun Tue ??? metoprolol (LOPRESSOR) tablet 100 mg 100 mg Oral Once per day on Tue ??? simvastatin 40 mg Oral QPM ??? sodium chloride (PF) 3 mL Intracatheter Q8H Data Recent Labs Lab 08/12/15 0814 08/11/15 0838 08/10/15 0824 08/09/15 1250 WBC 4.4 -- 5.3 -- -- HGB 7.7* -- 8.2* -- -- MCV 81 -- 81 -- -- PLT 128* -- 89* -- 99* INR 4.38* 4.58* 3.70* < > -- NA 127* 129* 128* -- 132* POTASSIUM 4.1 3.9 4.1 -- 3.6 CHLORIDE 91* 93* 91* -- 94 CO2 23 24 18* -- 23 BUN 94* 80* 120* -- 96* CR 12.60* 10.90* 16.10* -- 14.00* ANIONGAP 13 12 19* -- 15* JON 8.2* 8.2* 8.4* -- 8.4* GLC 116* 96 110* -- 153* ALBUMIN -- -- -- -- 3.3* < > = values in this interval not displayed. No results found for this or any previous visit (from the past 24 hour(s)). FINISHER Compa Nj - 08/12/2015 2:43 PM CST SULY Thomas) Per protocol, following for discharge planning. Patient is a 50 year old male admitted with a fever. He has end stage renal disease and receives dialysis Tuesday, and Tuesday. His expecteddischarge date is not yet clear. I) Reviewed chart data and noted patient lives with his aunt, Thelma in [place]. She is his POA and caregiver, along with patient's mother, Arianna. Patient gets HOUSEKEEPING/LAUNDRY SUPERVISOR services through [employer]. The contact there is Anya at [phone] and fax [phone]. Spoke with Anya to confirm their c ontinued involvement with patient. She reports patient gets 6 and 1/2 hours of HOUSEKEEPING/LAUNDRY SUPERVISOR coverage per day from [place], but she actually provides 24 hour care. Orders should be faxed to them at D/C. Called Thelma. She notes they have used [facility] for RN visits in the past and would want to use them again, if needed. The transport company they use is [employer] at . They need niko contacted to arrange transport at discharge. A) Patient would likely benefit from a return home with his caregiver and continued HOUSEKEEPING/LAUNDRY SUPERVISOR services at discharge. Home RN visits could be arranged if a skilled need is identified. P) Following. Julienne Vargas RN - 08/12/2015 10:22 AM CST Dialysis Run: Pt Arrived to acute via wheelchair Time out taken Pt ran for 3.5 hours on a K3 with a net fluid removal of 3.5L A BF of 400 was maintained via L Fem AVG Which was cannulated with 15 gauge needles without difficulty Skin tear above access bleeding on arrival Dressing applied Meds :Epo No Heparin given during run Complications:None Pt was seen by Dr Jack during run Hemostasis of needle sites achieved after 15 minutes Aseptic prep both on and off procedure. Procedure and ESRD discussed and all questions answered VSS post run See [facility] for more details Water detection monitor on floor during run Pt dialyzes at [place] Pre Weight 91.4 kg Post Weight 88kg POTASSIUM Date Value Ref Range Status 08/12/2015 4.1 3.4 - 5.3 mmol/L Final ] HEMOGLOBIN Date Value Ref Range Status 08/12/2015 7.7* 13.3 - 17.7 g/dL Final ] CREATININE Date Value Ref Range Status 08/12/2015 12.60* 0.66 - 1.25 mg/dL Final ]Leni Wesley RN [facility] Jaxon Sanchez MD - 08/12/2015 10:12 AM CST Vascular Surgery Progress Note S: On Dialysis run. O: Vitals: BP Min: 141/68 Max: 181/83 Temp Av.1 ??F (36.7 ??C) Min: 97.7 ??F (36.5 ??C) Max: 98.6 ??F (37 ??C) Pulse Av.4 Min: 74 Max: 76 I/O last 3 completed shifts: In: 1879 [P.O.:1879] Out: - Physical Exam: Left graft working well. Good thrill at ProCol segment. Skin tear with some bleeding over mid - graft---- does not appear to communicate with underlying hematoma. Cultures are negative to date. WBC=4.4 Assessment/Plan: Sepsis--- ? Related to left graft. Responding to antibioitcs. We will re-eval graftwhen off run to make sure skin tear is superficial. Wm. Rani MD Wojciech Puentes MD - 08/12/2015 9:32 AM CST Renal Medicine Inpatient Dialysis Note Julio Cesar Sandhu Age: [age] year old Date of : 1965 Date of Admission: 08/09/2015 Hospital LOS: 3 Assessment/Plan: Admitted with fever. Found to be bacteremic. Concern regarding possible graft Infection 1. ESRD 2. Anemia 3. Gram positive bacteremia 4. HTN 5. Anticoagulated Seen while on dialysis TTHS schedule Interval History: Seen during course of dialysis run. Run parameters reviewed with sub prior. Oozing at access site. Adequate BFR. 3 to 4 kg UF as tolerated. BP elevated ROS R: NEGATIVE for significant cough or SOB CV: NEGATIVE for chest pain, palpitations GI: NEGATIVE for abdominal pain, heartburn, nausea, vomiting or change in bowel pattern EXT: no change edema ROS otherwise negative Dialysis Parameters: Vitals were reviewed Patient Vitals for the past 8 hrs: BP Temp Temp src Pulse Heart Rate Resp SpO2 Weight 08/12/15 0930 155/68 mmHg - - 76 - - - - 08/12/15 0915 171/83 mmHg - - 76 - - - - 08/12/15 0900 181/83 mmHg - - 76 - - - - 08/12/15 0838 165/78 mmHg 98 ??F (36.7 ??C) Oral 75 - 18 - 91.4 kg (201 lb 8 oz) 08/12/15 0722 152/69 mmHg 97.7 ??F (36.5 ??C) Oral 74 - 19 100 % - 08/12/15 0500 - - - - - - - 91.4 kg (201 lb 8 oz) 08/12/15 0146 163/78 mmHg 98.1 ??F (36.7 ??C) Oral - 83 18 99 % - I/O last 3 completed shifts: In: 1879 [P.O.:1880] Out: - Filed Vitals: 08/09/15 1148 08/11/15 0556 08/11/15 1100 08/12/15 0500 Weight: 87.4 kg (192 lb 10.9 oz) 87.5 kg (192 lb 14.4 oz) 89.903 kg (198 lb 3.2 oz) 91.4 kg (201 lb 8 oz) 08/12/15 0838 Weight: 91.4 kg (201 lb 8 oz) Current Weight: 91.4 Dry Weight: 87 Dialysis Temp: 36.5 ??C Access Device: graft Access Site: left femoral Dialyzer: Revaclear Dialysis Bath: 3 Sodium Profile: n UF Goal: 3 to 4 Blood Flow Rate (mL/min): 400 Total Treatment Time (hrs): 3.5 Heparin: Low dose as required EPO dose: y Zemplar: n IV Fe: n Medications and Allergies: Reviewed Physical Exam: Seen and examined during course of dialysis run BP 155/68 mmHg Pulse 76 Temp(Src) 98 ??F (36.7 ??C) (Oral) Resp 18 Wt 91.4 kg (201 lb 8 oz) SpO2 100% GENERAL: awake, alert, follows HEENT: NC/AT, PERRLA, EOMI, non icteric, pharynx moist without lesion RESP: clear CV: RRR, normal S1 S2 ABDOMEN: S/NT, BS present MS: trace edema EXT: access canulated without issue NEURO: speech normal and cranial nerves 2-12 intact PSYCH: mentation appears normal and affect flat Data: Recent Labs Lab 08/12/15 0814 NA 127* POTASSIUM 4.1 CHLORIDE 91* CO2 23 ANIONGAP 13 GLC 116* BUN 94* CR 12.60* GFRESTIMATED 4* GFRESTBLACK 5* JON 8.2* Recent Labs Lab 08/12/15 0814 08/10/15 0824 08/09/15 1250 PHOS -- -- 2.3* HGB 7.7* 8.2* -- Recent Labs Lab Test 08/04/12 0930 HEPBANG Negative HBSAB 5.0 G Jagdeep Holman [facility] - Nephrology [phone] FINISHER Artis, Raúl Crenshaw MD - 08/12/2015 7:49 AM CST [facility] Infectious Disease Progress Note Assessment and Plan: IMPRESSION: 1. Julio Cesar Sandhu is a 50-year-old male with diabetes mellitus. 2. End-stage renal disease, on hemodialysis. 3. Admitted on this occasion with acute onset of fever to 103 degrees and now found to have bacteremia with MSSA. ? infected ProCol graft in the left leg. RECOMMENDATIONS: 1. Cont IV Ancef with dialysis 3. Follow serial blood cultures. Cxs from 08/10 now pos. Interval History: Feels better. Now afebrile. No c/o. Blood isolate ident as MSSA. Repeat blood cx 08/10 is now pos. Medications: ??? sodium chloride 0.9% 250 mL Hemodialysis Machine Once ??? epoetin mauricio (EPOGEN,PROCRIT) inj ESRD 7,000 Units Intravenous See Admin Instructions ??? ceFAZolin 2 g Intravenous Once per day on Tue ??? [START ON 08/16/2015] ceFAZolin 3 g Intravenous Once per day on Tue ??? B ubzciko-S-ykoai acid 1 capsule Oral Daily ??? calcium acetate 1,334 mg Oral TID w/meals ??? bisacodyl 10 mg Oral Once per day on Sun Tue ??? cholecalciferol (vitamin D) tablet 2,000 Units 2,000 Units Oral Daily ??? lisinopril (PRINIVIL,ZESTRIL) tablet 20 mg 20 mg Oral Once per day on Sun Tue ??? metoprolol (LOPRESSOR) tablet 100 mg 100 mg Oral Once per day on Sun Tue ??? simvastatin 40 mg Oral QPM ??? sodium chloride (PF) 3 mL Intracatheter Q8H Physical Exam: Blood pressure 152/69, pulse 74, temperature 97.7 ??F (36.5 ??C), temperature source Oral, resp. rate 19, weight 91.4 kg (201 lb 8 oz), SpO2 100 %. @WEIGHT1@ Vital Signs with Ranges Temp: [97.6 ??F (36.4 ??C)-98.6 ??F (37 ??C)] 97.7 ??F (36.5 ??C) Pulse: [74] 74 Heart Rate: [72-83] 83 Resp: [18-20] 19 BP: (141-163)/(68-78) 152/69 mmHg SpO2: [98 %-100 %] 100 % Constitutional: Awake, alert, cooperative, no apparent distress Lungs: Clear to auscultation bilaterally, no crackles or wheezing Cardiovascular: Regular rate and rhythm, normal S1 and S2, and no murmur noted Abdomen: Normal bowel sounds, soft, non-distended, non-tender Skin: No rashes, no cyanosis, no edema Other: Data: All microbiology laboratory data reviewed. Recent Labs Lab Test 08/10/15 0824 08/09/15 1250 07/02/15 0627 06/20/14 0808 06/19/14 0720 06/10/14 0713 06/09/14 0740 WBC 5.3 -- -- -- -- -- -- 6.3 6.1 HGB 8.2* -- 10.6* 7.7* < > -- < > 7.3* 8.0* HCT 24.8* -- -- -- -- -- -- 24.3* 27.3* MCV 81 -- -- -- -- -- -- 84 85 PLT 89* 99* -- -- -- 173 < > 105* 112* < > = values in this interval not displayed. Recent Labs Lab Test 08/11/15 0838 08/10/15 0824 08/09/15 1250 CR 10.90* 16.10* 14.00* No lab results found. Wojciech Puentes MD - 08/11/2015 2:51 PM CST Renal Medicine Chart Check Plan am dialysis Dialysis orders entered Recent Labs Lab 08/11/15 0838 NA 129* POTASSIUM 3.9 CHLORIDE 93* CO2 24 ANIONGAP 12 GLC 96 BUN 80* CR 10.90* GFRESTIMATED 5* GFRESTBLACK 6* JON 8.2* Rell Holman [facility] [phone] FINISHER Jaxon Buenrostro MD - 08/11/2015 12:10 PM CST Subjective: Patient is sleeping in bed comfortably. He says he has minimal pain in the left thigh. Denies fevers/chills overnight. He had dialysis yesterday. Objective: BP 146/70 mmHg Pulse 83 Temp(Src) 97.6 ??F (36.4 ??C) (Oral) Resp 20 Wt 89.903 kg (198 lb 3.2 oz) SpO2 100% Gen: NAD, alert and oriented x3. Cardiac: RRR Pulm: CTA Abd: soft, NT, nD Ext: warm and well perfused. Left thigh A-V graft with good thrill. There is less warmth today to the touch, no evidence of purulent drainage and no erythema. Assessment: 50 yo male with bacteremia (MSSA) and US suggesting fluid around the proximal AV-graft worrisome for infection. Plan: Continue antibiotic therapy Will discuss surgical options and the possible need for graft explant BCx2 positive for MSSA Cardiac ECHO complete and shows no signs of endocarditis Vascular Staff: As above. Sepsis that may be due to left thigh access (medial is ProCol and lateral PTFE). He does have a complex fluid collection near ProCol- PTFE anastomosis-- no air bubbles. This may just be a hematoma. He has very limited access options (none in upper) and thus graft salvage is important. I thus would like IV antibiotics to see if infection clears. If this persists we would need to explore graft- ? Complete excision- ? Replace PTFE with ProCol (somewhat resistant to infection). Jaxon Buenrostro MD FINISHER Janice Gaspar MD - 08/11/2015 10:05 AM CST [facility] Hospitalist Progress Note Date of Service (when I saw the patient): 08/11/2015 Assessment and Plan Julio Cesar Sandhu is a 50 year old male with past medical history significant for end-stage renal disease on hemodialysis, hypertension, secondary hyperparathyroidism, obstructive sleep apnea, anemiaof chronic disease, type 2 diabetes mellitus with diabetic retinopathy, hyperlipidemia, DVT of upper extremity who was admitted on 08/09/2015 with fevers, now with MSSA bacteremia possibly from infected ProCal graft. Sepsis with MSSA bacteremia, suspect secondary to infected ProCal graft Presented with fevers from dialysis unit. Infectious work-up initially unremarkable for source, blood cultures positive with MSSA - Blood cultures from admission positive 2 out of 2 for MSSA - Daily blood cultures remain positive as of 08/10/15 - TTE without evidence for endocarditis - Infectious disease following - Changed to IV ancef with HD per infectious disease - Vascular surgery consulted to evaluate HD ProCal graft, note interval development of complex perigraft fluid collection on arterial US, suspect this may represent the source of his infection and ongoing bacteremia. Further intervention per vascular surgery. End-stage renal disease on hemodialysis Secondary hyperparathyroidism Nephrology consulted for inpatient HD Dialysis diet Continue prior to admission dialysis medications Hypertension Blood pressure moderately elevated Continue home lisinopril, metoprolol. Note he takes these on non-dialysis days. History of upper extremity DVT On Coumadin. - Pharmacy consulted for warfarin dosing. Obstructive sleep apnea Continue prior to admission CPAP per home settings. 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 He is not presently on any medications for this. Recheck hemoglobin A1c ordered; reportedly is too low to be read on current assay Anemia of chronic disease Baseline hemoglobin appears to be around 9-10, currently at baseline. Monitor. DVT Prophylaxis: Warfarin Code Status: Full Code Disposition: Inpatient status for bacteremia, IV antibiotics. Discharge timing unclear, pending further work-up/treatment and antibiotic plan for bacteremia. Anticipate 2-4 days. Janice Gaspar Interval History Blood cultures remain positive. No new complaints per patient, feels better. Patient denies chest pain, shortness of breath, abdominal pain, n/v, diarrhea. -Data reviewed today: I reviewed all new labs and imaging results over the last 24 hours. I personally reviewed no images or EKG's today. Physical Exam Temp: 97.6 ??F (36.4 ??C) Temp src: Oral BP: 146/70 mmHg Pulse: 83 Heart Rate: 72 Resp: 20 SpO2: 100% O2 Device: None (Room air) Filed Vitals: 08/09/15 1148 08/11/15 0556 Weight: 87.4 kg (192 lb 10.9 oz) 87.5 kg (192 lb 14.4 oz) Vital Signs with Ranges Temp: [97.6 ??F (36.4 ??C)-100 ??F (37.8 ??C)] 97.6 ??F (36.4 ??C) Pulse: [83-92] 83 Heart Rate: [72-95] 72 Resp: [15-20] 20 BP: (100-155)/(47-87) 146/70 mmHg SpO2: [96 %-100 %] 100 % I/O last 3 completed shifts: In: 120 [P.O.:120] Out: 3000 [Other:3000] Constitutional: Middle-aged male, NAD Respiratory: Clear to auscultation bilaterally, good air movement bilaterally Cardiovascular: RRR, II/ systolic murmur heard best at RUSB. No peripheral edema. GI: Soft, non-tender, non-distended. BS normoactive. Skin/Integumen: Warm, dry Other: Medications ??? No Medication Sleep Aids for this Patient ??? Warfarin Therapy Reminder ??? [START ON 08/12/2015] ceFAZolin 2 g Intravenous Once per day on Tue ??? [START ON 08/16/2015] ceFAZolin 3 g Intravenous Once per day on Sat ??? warfarin-No DOSE today 1 each Does not apply no dose today (warfarin) ??? B svkdctp-P-aqsqw acid 1 capsule Oral Daily ??? calcium acetate 1,334 mg Oral TID w/meals ??? bisacodyl 10 mg Oral Once per day on Tue ??? cholecalciferol (vitamin D) tablet 2,000 Units 2,000 Units Oral Daily ??? lisinopril (PRINIVIL,ZESTRIL) tablet 20 mg 20 mg Oral Once per day on Tue ??? metoprolol (LOPRESSOR) tablet 100 mg 100 mg Oral Once per day on Tue ??? simvastatin 40 mg Oral QPM ??? sodium chloride (PF) 3 mL Intracatheter Q8H Data Recent Labs Lab 08/11/15 0838 08/10/15 0824 08/09/15 1603 08/09/15 1250 WBC -- 5.3 -- -- HGB -- 8.2* -- -- MCV -- 81 -- -- PLT -- 89* -- 99* INR 4.58* 3.70* 3.02* -- NA -- 128* -- 132* POTASSIUM -- 4.1 -- 3.6 CHLORIDE -- 91* -- 94 CO2 -- 18* -- 23 BUN -- 120* -- 96* CR -- 16.10* -- 14.00* ANIONGAP -- 19* -- 15* JON -- 8.4* -- 8.4* GLC -- 110* -- 153* ALBUMIN -- -- -- 3.3* Recent Results (from the past 24 hour(s)) US Ext Arterial Venous Dialys Acs Graft Narrative US EXTREMITY ARTERIAL VENOUS DIALYSIS ACCESS GRAFT 08/10/2015 3:07 PM HISTORY: 50-year-old male with fever to 104 degrees, recently status post surgical revision of left profunda femoris artery to common femoral vein PTFE dialysis loop graft. COMPARISON: 06/26/2015. FINDINGS: The left profunda to common femoral vein PTFE dialysis graft is patent without evidence of stenosis. Since the previous study, 3.4 x 3.2 x 2.3 cm complex perigraft fluid collection has developed at the apex of the graft. Although this may represent hematoma related to access or recent surgical revision, given the patient's history I cannot exclude this being infected perigraft fluid. In the arterial aspect of the graft there are two pseudoaneurysms identified with flow and partially thrombosed most proximal measuring 0.8 x 0.9 x 0.5 cm and the second slightly distal towards the apex measuring 1.4 x 1.3 x 0.7 cm. There is also questionable small amount of perigraft fluid at the distal anastomosis to the common femoral vein. Inflow profunda femoris artery and outflow common femoral veins appear patent. Impression IMPRESSION: 1. Patent left thigh profunda femoris artery to common femoral vein PTFE loop dialysis graft. 2. There has been interval development of complex perigraft fluid collection at the apex of the graft which could represent sterile or infected perigraft fluid such as hematoma. 3. Two pseudoaneurysms in the arterial limb of the graft as described which are partially thrombosed. 4. There may be a small amount of fluid at the distal anastomosis to the common femoral vein as well. DARRIAN MOYA MD FINISHER Artis, Raúl Crenshaw MD - 08/11/2015 7:41 AM CST [facility] Infectious Disease Progress Note Assessment and Plan: IMPRESSION: 1. Julio Cesar Sandhu is a 50-year-old male with diabetes mellitus. 2. End-stage renal disease, on hemodialysis. 3. Admitted on this occasion with acute onset of fever to 103 degrees and now found to have bacteremia with MSSA. I suspect that the most likely source of his infection is the dialysis and perhaps the ProCol graft in the left leg. RECOMMENDATIONS: 1. Will switch to IV Ancef with dialysis 3. Follow serial blood cultures. Interval History: Feels better. Temp down to 100. No c/o. Blood isolate ident as MSSA. Repeat blood neg at one day. Medications: ??? B agfrjee-S-pbbtn acid 1 capsule Oral Daily ??? calcium acetate 1,334 mg Oral TID w/meals ??? bisacodyl 10 mg Oral Once per day on Sun Tue ??? cholecalciferol (vitamin D) tablet 2,000 Units 2,000 Units Oral Daily ??? lisinopril (PRINIVIL,ZESTRIL) tablet 20 mg 20 mg Oral Once per day on Sun Tue ??? metoprolol (LOPRESSOR) tablet 100 mg 100 mg Oral Once per day on Sun Tue ??? simvastatin 40 mg Oral QPM ??? sodium chloride (PF) 3 mL Intracatheter Q8H Physical Exam: Blood pressure 155/68, pulse 83, temperature 98.1 ??F (36.7 ??C), temperature source Oral, resp. rate 18, weight 87.5 kg (192 lb 14.4 oz), SpO2 100 %. @WEIGHT1@ Vital Signs with Ranges Temp: [98.1 ??F (36.7 ??C)-100 ??F (37.8 ??C)] 98.1 ??F (36.7 ??C) Pulse: [83-92] 83 Heart Rate: [74-95] 95 Resp: [15-18] 18 BP: (100-174)/(47-87) 155/68 mmHg SpO2: [96 %-100 %] 100 % Constitutional: Awake, alert, cooperative, no apparent distress Lungs: Clear to auscultation bilaterally, no crackles or wheezing Cardiovascular: Regular rate and rhythm, normal S1 and S2, and no murmur noted Abdomen: Normal bowel sounds, soft, non-distended, non-tender Skin: No rashes, no cyanosis, no edema Other: Data: All microbiology laboratory data reviewed. Recent Labs Lab Test 08/10/15 0824 08/09/15 1250 07/02/15 0627 06/20/14 0808 06/19/14 0720 06/10/14 0713 06/09/14 0740 WBC 5.3 -- -- -- -- -- -- 6.3 6.1 HGB 8.2* -- 10.6* 7.7* < > -- < > 7.3* 8.0* HCT 24.8* -- -- -- -- -- -- 24.3* 27.3* MCV 81 -- -- -- -- -- -- 84 85 PLT 89* 99* -- -- -- 173 < > 105* 112* < > = values in this interval not displayed. Recent Labs Lab Test 08/10/15 0824 08/09/15 1250 07/02/15 0627 CR 16.10* 14.00* 9.78* No lab results found. FINISHER Cristiana Newton RN - 08/10/2015 6:41 PM CST VSS. Pt denies any pain. Up with one. Tolerating diet. Continue to monitor FINISHER Angie Gotti RN - 08/10/2015 10:34 AM CST POTASSIUM Date Value Ref Range Status 08/10/2015 4.1 3.4 - 5.3 mmol/L Final ] HGB 8.2 08/10/2015 Weight: 87.4 kg (192 lb 10.9 oz) POST WT 84.4kg DIALYSIS PROCEDURE NOTE Patient dialyzed for 3.5 hrs. on a 3 K bath with a net fluid removal of 3L. A BFR of 400 ml/min was obtained via a LLG using 15guage needles. The patient was seen by Dr. Johnston during the treatment. Total heparin received during the treatment: 2500 units. Sites held x 30 min then pressure drsgs applied. Meds Given:EPO 4,000units IV Complications: NONE. Procedure and ESRD teaching done and questions answered. See flowsheet in [facility] for further details and post assessment. Machine water alarm in place and functioning. Consent for dialysis signed 08/10/15 Pt returned via Wheelchair Vascular Access: Aseptic prep done for both on/off. Report received from:Cristiana Newton R.N. Report given to:Cristiana Newton R.N. HEPATITIS B SURFACE ANTIGEN unknown HEPATITIS B SURFACE ANTIBODY Immune DATE 07/13/15 Chlorine/Chloramine water system checked every 4 hours. Outpatient Dialysis at [facility] Danis Kwok MD - 08/10/2015 9:21 AM CST Assessment and Plan: ESRD: HD today for UF and clearance. Using LLE gortex with good blood flow but elevated arterial pressures. Will give epo on the run. Patient has a known PTFE left thigh loop graft that has recently been revised with ProCal bovine mesenteric vein to replace some aneurysmal segments of the venous outflow portion of the graft (07/07/2015). Interval History: Fever: The patient has 2/2 blood cultures from [facility] that suggest GPC in clusters and suggestive of bacteremia. On zosyn and vanco. Bld cultures from [facility] are also + for GPC. Hypertension: on lisinopril, metoprolol. Review of Systems: No sx on dialysis. Medications: ??? sodium chloride 0.9% 250-1,000 mL Intravenous Once in dialysis ??? epoetin mauricio (EPOGEN,PROCRIT) inj ESRD 4,000 Units Intravenous See Admin Instructions ??? B jfjlmcd-V-yludb acid 1 capsule Oral Daily ??? calcium acetate 1,334 mg Oral TID w/meals ??? bisacodyl 10 mg Oral Once per day on Sun Tue ??? cholecalciferol (vitamin D) tablet 2,000 Units 2,000 Units Oral Daily ??? [START ON 08/11/2015] lisinopril (PRINIVIL,ZESTRIL) tablet 20 mg 20 mg Oral Once per day on Sun Tue ??? [START ON 08/11/2015] metoprolol (LOPRESSOR) tablet 100 mg 100 mg Oral Once per day on Sun Tue ??? simvastatin 40 mg Oral QPM ??? sodium chloride (PF) 3 mL Intracatheter Q8H ??? piperacillin-tazobactam 2.25 g Intravenous Q6H ??? vancomycin place watson - receiving intermittent dosing 1 each Does not apply See Admin Instructions ??? heparin (porcine) 500 Units/hr (08/10/15 0916) ??? No Medication Sleep Aids for this Patient ??? Warfarin Therapy Reminder Current active medications and [facility] SUPPORT CONSULTANT medications reviewed, see medication list for details. Physical Exam: Vitals were reviewed Patient Vitals for the past 24 hrs: BP Temp Temp src Pulse Heart Rate Resp SpO2 Weight 08/10/15 0900 147/57 mmHg - - - 84 - - - 08/10/15 0845 174/78 mmHg 99.1 ??F (37.3 ??C) Oral - 82 15 - - 08/10/15 0840 - - - - - - 100 % - 08/10/15 0722 167/77 mmHg 98.9 ??F (37.2 ??C) Oral 86 - 16 100 % - 08/10/15 0514 - 99.2 ??F (37.3 ??C) Oral - - - - - 08/10/15 0025 - 99 ??F (37.2 ??C) Oral - - - - - 08/09/15 2317 163/69 mmHg 103.1 ??F (39.5 ??C) Oral 96 - 20 100 % - 08/09/15 2210 - - - - - - 100 % - 08/09/15 1945 143/64 mmHg 99 ??F (37.2 ??C) Oral 82 - 20 99 % - 08/09/15 1844 156/70 mmHg 99.7 ??F (37.6 ??C) Oral 84 - 22 - - 08/09/15 1719 - 98.7 ??F (37.1 ??C) Oral - - - - - 08/09/15 1540 169/76 mmHg 102.7 ??F (39.3 ??C) Oral 98 - 20 100 % - 08/09/15 1520 - 102.8 ??F (39.3 ??C) Oral - - - - - 08/09/15 1339 - 101 ??F (38.3 ??C) Oral - - - - - 08/09/15 1148 149/71 mmHg 102.1 ??F (38.9 ??C) Oral 96 - 20 99 % 87.4 kg (192 lb 10.9 oz) Temp: [98.7 ??F (37.1 ??C)-103.1 ??F (39.5 ??C)] 99.1 ??F (37.3 ??C) Pulse: [82-98] 86 Heart Rate: [82-84] 84 Resp: [15-22] 15 BP: (143-174)/(57-78) 147/57 mmHg FiO2 (%): [30 %] 30 % SpO2: [99 %-100 %] 100 % Temperatures: Current - Temp: 99.1 ??F (37.3 ??C); Max - Temp Av.4 ??F (38 ??C) Min: 98.7 ??F (37.1 ??C) Max: 103.1 ??F (39.5 ??C) Respiration range: Resp Av Min: 15 Max: 22 Pulse range: Pulse Av.3 Min: 82 Max: 98 Blood pressure range: Systolic (24hrs), Av mmHg, Min:143 mmHg, Max:174 mmHg ; Diastolic (24hrs), Av mmHg, Min:57 mmHg, Max:78 mmHg Pulse oximetry range: SpO2 Av.7 % Min: 99 % Max: 100 % I/O last 3 completed shifts: In: 240 [P.O.:240] Out: 100 [Urine:100] Intake/Output Summary (Last 24 hours) at 08/10/15 0922 Last data filed at 08/10/15 0800 Gross per 24 hour Intake 360 ml Output 100 ml Net 260 ml Resting in bed LLE gortex with needles in place. Wt Readings from Last 4 Encounters: 08/09/15 87.4 kg (192 lb 10.9 oz) 07/02/15 90.719 kg (200 lb) 06/19/14 99.2 kg (218 lb 11.1 oz) 05/08/14 83.779 kg (184 lb 11.2 oz) Data: NA 128 08/10/2015 NA 132 08/09/2015 NA 130 07/02/2015 CHLORIDE 91 08/10/2015 CHLORIDE 94 08/09/2015 CHLORIDE 92 07/02/2015 BUN 120 08/10/2015 BUN 96 08/09/2015 BUN 35 07/02/2015 POTASSIUM 4.1 08/10/2015 POTASSIUM 3.6 08/09/2015 POTASSIUM 4.5 07/02/2015 CO2 18 08/10/2015 CO2 23 08/09/2015 CO2 33 07/02/2015 CR 16.10 08/10/2015 CR 14.00 08/09/2015 CR 9.78 07/02/2015 Recent Labs Lab Test 08/10/15 0824 08/09/15 1250 07/02/15 0627 06/20/14 0808 06/19/14 0720 06/10/14 0713 06/09/14 0740 WBC 5.3 -- -- -- -- -- -- 6.3 6.1 HGB 8.2* -- 10.6* 7.7* < > -- < > 7.3* 8.0* HCT 24.8* -- -- -- -- -- -- 24.3* 27.3* MCV 81 -- -- -- -- -- -- 84 85 PLT 89* 99* -- -- -- 173 < > 105* 112* < > = values in this interval not displayed. No results for input(s): AST, ALT, GGT, ALKPHOS, BILITOTAL, BILICONJ, BILIDIRECT, DARLINE in the last 16118 hours. Invalid input(s): BILIRUBININDIRECT Recent Labs Lab Test 06/17/14 1800 MAG 2.1 Recent Labs Lab Test 08/09/15 1250 06/17/14 0731 06/15/14 0734 PHOS 2.3* 2.6 2.4* Recent Labs Lab Test 08/10/15 0824 08/09/15 1250 07/02/15 0627 JON 8.4* 8.4* 8.3* Lab Results Component Value Date JON 8.4* 08/10/2015 Lab Results Component Value Date WBC 5.3 08/10/2015 HGB 8.2* 08/10/2015 HCT 24.8* 08/10/2015 MCV 81 08/10/2015 PLT 89* 08/10/2015 Lab Results Component Value Date NA 128* 08/10/2015 POTASSIUM 4.1 08/10/2015 CHLORIDE 91* 08/10/2015 CO2 18* 08/10/2015 GLC 110* 08/10/2015 Lab Results Component Value Date BUN 120* 08/10/2015 CR 16.10* 08/10/2015 Lab Results Component Value Date MAG 2.1 06/17/2014 Lab Results Component Value Date PHOS 2.3* 08/09/2015 CREATININE Date Value Ref Range Status 08/10/2015 16.10* 0.66 - 1.25 mg/dL Final 08/09/2015 14.00* 0.66 - 1.25 mg/dL Final 07/02/2015 9.78* 0.66 - 1.25 mg/dL Final 06/17/2014 8.78* 0.66 - 1.25 mg/dL Final 06/17/2014 8.19* 0.66 - 1.25 mg/dL Final 06/15/2014 7.87* 0.66 - 1.25 mg/dL Final Attestation: I have reviewed today's vital signs, notes, medications, labs and imaging. Seen on dialysis. DANIS JOHNSTON MD FINISHER Janice Gaspar MD - 08/10/2015 8:34 AM CST [facility] Hospitalist Progress Note Date of Service (when I saw the patient): 08/10/2015 Assessment and Plan Julio Cesar Sandhu is a 50 year old male with past medical history significant for end-stage renal disease on hemodialysis, hypertension, secondary hyperparathyroidism, obstructive sleep apnea, anemiaof chronic disease, type 2 diabetes mellitus with diabetic retinopathy, hyperlipidemia, DVT of upper extremity who was admitted on 08/09/2015 with fevers, now with GPC bacteremia. Sepsis with gram positive bacteremia Presented with fevers from dialysis unit. Infectious work-up initially unremarkable for source, blood cultures from [facility] now positive with GPCs - Blood cultures from admission positive 2/2 for GPC - Echocardiogram ordered given murmur - Infectious disease consulted - Daily blood cultures ordered to document clearance - Continue vancomycin, piperacillin-tazobactam pending further culture data/ID evaluation - Vascular surgery consulted to evaluate HD ProCal graft as potential source End-stage renal disease on hemodialysis - Nephrology consulted for inpatient HD - Dialysis diet - Continue prior to admission dialysis medications Hypertension Blood pressure moderately elevated - Re-ordered home lisinopril, metoprolol. Note he takes these on non-dialysis days. History of upper extremity DVT On Coumadin. - Pharmacy consulted for warfarin dosing. Obstructive sleep apnea Continue prior to admission CPAP per home settings. 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 He is not presently on any medications for this. - Recheck hemoglobin A1c ordered; reportedly is too low to be read on current assay Anemia of chronic disease Baseline hemoglobin appears to be around 9-10, currently at baseline. Monitor. DVT Prophylaxis: Warfarin Code Status: Full Code Disposition: Inpatient status for bacteremia, IV antibiotics. Discharge timing unclear, pending further work-up and antibiotic plan for bacteremia. Anticipate 2-4 days. Janice Gaspar Interval History Overnight blood cultures from [facility] turned positive with GPC. Patient seen on dialysis. He denies any new complaints. Denies chest pain, shortness of breath, abdominal pain, n/v, diarrhea. -Data reviewed today: I reviewed all new labs and imaging results over the last 24 hours. I personally reviewed no images or EKG's today. Physical Exam Temp: 98.9 ??F (37.2 ??C) Temp src: Oral BP: 167/77 mmHg Pulse: 86 Resp: 16 SpO2: 100 % O2 Device: None (Room air) Filed Vitals: 08/09/15 1148 Weight: 87.4 kg (192 lb 10.9 oz) Vital Signs with Ranges Temp: [98.7 ??F (37.1 ??C)-103.1 ??F (39.5 ??C)] 98.9 ??F (37.2 ??C) Pulse: [82-98] 86 Resp: [16-22] 16 BP: (143-169)/(64-77) 167/77 mmHg FiO2 (%): [30 %] 30 % SpO2: [99 %-100 %] 100 % I/O last 3 completed shifts: In: 240 [P.O.:240] Out: 100 [Urine:100] Constitutional: Middle-aged male, NAD Respiratory: Clear to auscultation bilaterally, good air movement bilaterally Cardiovascular: RRR, II/ systolic murmur heard best at RUSB. No peripheral edema. GI: Soft, non-tender, non-distended. BS normoactive. Skin/Integumen: Warm, dry Other: Medications ??? heparin (porcine) ??? No Medication Sleep Aids for this Patient ??? Warfarin Therapy Reminder ??? sodium chloride 0.9% 250 mL Hemodialysis Machine Once ??? sodium chloride 0.9% 250-1,000 mL Intravenous Once in dialysis ??? epoetin mauricio (EPOGEN,PROCRIT) inj ESRD 4,000 Units Intravenous See Admin Instructions ??? heparin (porcine) 500 Units Hemodialysis Machine Once in dialysis ??? B cfnmbqm-L-rzksv acid 1 capsule Oral Daily ??? calcium acetate 1,334 mg Oral TID w/meals ??? bisacodyl 10 mg Oral Once per day on Sun Tue ??? cholecalciferol (vitamin D) tablet 2,000 Units 2,000 Units Oral Daily ??? [START ON 08/11/2015] lisinopril (PRINIVIL,ZESTRIL) tablet 20 mg 20 mg Oral Once per day on Sun Tue ??? [START ON 08/11/2015] metoprolol (LOPRESSOR) tablet 100 mg 100 mg Oral Once per day on Sun Tue ??? simvastatin 40 mg Oral QPM ??? sodium chloride (PF) 3 mL Intracatheter Q8H ??? piperacillin-tazobactam 2.25 g Intravenous Q6H ??? vancomycin place watson - receiving intermittent dosing 1 each Does not apply See Admin Instructions Data Recent Labs Lab 08/09/15 1603 08/09/15 1250 PLT -- 99* INR 3.02* -- NA -- 132* POTASSIUM -- 3.6 CHLORIDE -- 94 CO2 -- 23 BUN -- 96* CR -- 14.00* ANIONGAP -- 15* JON -- 8.4* GLC -- 153* ALBUMIN -- 3.3* No results found for this or any previous visit (from the past 24 hour(s)). FINISHER Rand Ramirez MD - 08/10/2015 12:31 AM CDT Hospitalist X-cover, Called about postive blood culture from [facility] which showed GPC. Per Dr. Gaspar's H&P, thepatient had blood cultures drawn here also which are pending and is on vanco and zosyn. Fax from [facility] is going to be put on front of chart. Mahendra Ramirez MD Danis Johnston MD - 08/09/2015 3:10 PM CDT Assessment and Plan: ESRD: will do HD in Am . No urgent indication for dialysis. Interval History: Fever: on vanco and zosyn and blood cultures done. The gortex loop could be infected but no overt signs on exam. Review of Systems: C/O fatigue and fever. No headache chest or abd pain. No N or V. No pain over gortex graft in leg. Medications: ??? sodium chloride (PF) 3 mL Intracatheter Q8H ??? piperacillin-tazobactam 2.25 g Intravenous Q6H ??? vancomycin place watson - receiving intermittent dosing 1 each Does not apply See Admin Instructions ??? No Medication Sleep Aids for this Patient ??? Warfarin Therapy Reminder Current active medications and [facility] SUPPORT CONSULTANT medications reviewed, see medication list for details. Physical Exam: Vitals were reviewed Patient Vitals for the past 24 hrs: BP Temp Temp src Pulse Resp SpO2 Weight 08/09/15 1339 - 101 ??F (38.3 ??C) Oral - - - - 08/09/15 1148 149/71 mmHg 102.1 ??F (38.9 ??C) Oral 96 20 99 % 87.4 kg (192 lb 10.9 oz) Temp: [101 ??F (38.3 ??C)-102.1 ??F (38.9 ??C)] 101 ??F (38.3 ??C) Pulse: [96] 96 Resp: [20] 20 BP: (149)/(71) 149/71 mmHg SpO2: [99 %] 99 % Temperatures: Current - Temp: 101 ??F (38.3 ??C); Max - Temp Av.6 ??F (38.7 ??C) Min: 101 ??F (38.3 ??C) Max: 102.1 ??F (38.9 ??C) Respiration range: Resp Av Min: 20 Max: 20 Pulse range: Pulse Av Min: 96 Max: 96 Blood pressure range: Systolic (24hrs), Av mmHg, Min:149 mmHg, Max:149 mmHg ; Diastolic (24hrs), Av mmHg, Min:71 mmHg, Max:71 mmHg Pulse oximetry range: SpO2 Av % Min: 99 % Max: 99 % No intake or output data in the 24 hours ending 08/09/15 1511 Somnolent, slow speech Lungs with clear BS Cor RRR Nl S1 S2 no M Abd nl BS, soft and non tender, no enlarged L-S LE no edema Left groin: gortex loop graft with good pulse and thrill. No tenderness or redness. He has one superficial area of abrasion over loop Wt Readings from Last 4 Encounters: 08/09/15 87.4 kg (192 lb 10.9 oz) 07/02/15 90.719 kg (200 lb) 06/19/14 99.2 kg (218 lb 11.1 oz) 05/08/14 83.779 kg (184 lb 11.2 oz) Data: NA 132 08/09/2015 NA 130 07/02/2015 NA 132 06/17/2014 CHLORIDE 94 08/09/2015 CHLORIDE 92 07/02/2015 CHLORIDE 97 06/17/2014 BUN 96 08/09/2015 BUN 35 07/02/2015 BUN 62 06/17/2014 POTASSIUM 3.6 08/09/2015 POTASSIUM 4.5 07/02/2015 POTASSIUM 4.9 06/20/2014 CO2 23 08/09/2015 CO2 33 07/02/2015 CO2 27 06/17/2014 CR 14.00 08/09/2015 CR 9.78 07/02/2015 CR 8.78 06/17/2014 Recent Labs Lab Test 08/09/15 1250 07/02/15 0627 06/20/14 0808 06/19/14 1009 06/19/14 0720 06/16/14 0730 06/10/14 0713 06/09/14 0740 06/08/14 0643 WBC -- -- -- -- -- -- -- -- 6.3 6.1 6.8 HGB -- 10.6* 7.7* 7.7* -- < > -- < > 7.3* 8.0* 7.9* HCT -- -- -- -- -- -- -- -- 24.3* 27.3* 26.6* MCV -- -- -- -- -- -- -- -- 84 85 85 PLT 99* -- -- -- 173 -- 164 < > 105* 112* 118* < > = values in this interval not displayed. No results for input(s): AST, ALT, GGT, ALKPHOS, BILITOTAL, BILICONJ, BILIDIRECT, DARLINE in the last 05268 hours. Invalid input(s): BILIRUBININDIRECT Recent Labs Lab Test 06/17/14 1800 MAG 2.1 Recent Labs Lab Test 08/09/15 1250 06/17/14 0731 06/15/14 0734 PHOS 2.3* 2.6 2.4* Recent Labs Lab Test 08/09/15 1250 07/02/15 0627 06/17/14 1855 JON 8.4* 8.3* 8.6 Lab Results Component Value Date JON 8.4* 08/09/2015 Lab Results Component Value Date WBC 6.3 06/10/2014 HGB 10.6* 07/02/2015 HCT 24.3* 06/10/2014 MCV 84 06/10/2014 PLT 99* 08/09/2015 Lab Results Component Value Date NA 132* 08/09/2015 POTASSIUM 3.6 08/09/2015 CHLORIDE 94 08/09/2015 CO2 23 08/09/2015 GLC 153* 08/09/2015 Lab Results Component Value Date BUN 96* 08/09/2015 CR 14.00* 08/09/2015 Lab Results Component Value Date MAG 2.1 06/17/2014 Lab Results Component Value Date PHOS 2.3* 08/09/2015 CREATININE Date Value Ref Range Status 08/09/2015 14.00* 0.66 - 1.25 mg/dL Final 07/02/2015 9.78* 0.66 - 1.25 mg/dL Final 06/17/2014 8.78* 0.66 - 1.25 mg/dL Final 06/17/2014 8.19* 0.66 - 1.25 mg/dL Final 06/15/2014 7.87* 0.66 - 1.25 mg/dL Final 06/10/2014 7.75* 0.66 - 1.25 mg/dL Final Attestation: I have reviewed today's vital signs, notes, medications, labs and imaging. DANIS JOHNSTON MD documented in this encounter H&P Notes Janice Gaspar MD - 08/09/2015 1:12 PM CDT DATE OF SERVICE: 08/09/15 CHIEF COMPLAINT: Fever for 1 day. HISTORY OF PRESENT ILLNESS: Julio Cesar Sandhu is a 50-year-old male with past medical history as detailed below, who presents with the above chief complaint. History is obtained from the patient, medical record as well as discussion with his aunt with whom he lives. The patient's aunt reports that the day prior to admission that he felt more tired than usual and his skin seemed warm. He had been sneezing, but otherwise did not have any new or abnormal symptoms including cough, abdominal pain and diarrhea. The patient himself denies any recent headache or vision changes, neck stiffness, sinus pain or discomfort, sore throat, cough, abdominal pain, diarrhea, rashes or skin changes. He presented to [facility] per his usual schedule and reportedly his temperature was measured at 104 degrees Fahrenheit. Due to this, he was sent to the [place] [facility] for further evaluation. Workup at that time including chest x-ray, LFTs, influenza test were negative for infection. His white blood cell count was within normal limits. A CRP was noted to be elevated at 17.3. Given the unclear source of his infection as well as his need for dialysis transfer to [facility] was requested for further cares. PAST MEDICAL HISTORY: 1. End-stage renal disease on hemodialysis Tuesday, , Tuesday. 2. Obstructive sleep apnea. 3. Hypertension. 4. Secondary hyperparathyroidism. 5. Vitamin D deficiency. 6. Deep venous thrombosis of upper extremity. 7. Type 2 diabetes. 8. Background diabetic retinopathy. 9. Legal blindness. 10. Anemia of chronic disease. PAST SURGICAL HISTORY: 1. TURP. 2. Abdomen perineum omentum surgery. 3. ProCal hemodialysis graft left leg. SOCIAL HISTORY: He is a never smoker. Does not use alcohol. He lives with his aunt and mother in [place]. Reportedly, his aunt is his legal power of health care attorney and medical decision maker. FAMILY HISTORY: Maternal grandmother had colon cancer at unknown age. REVIEW OF SYSTEMS: A complete 10-point review of systems assessed and negative except as noted in the HPI. ALLERGIES: Aspirin causes GI bleeding. PHYSICAL EXAMINATION: VITAL SIGNS: Temperature 102.1 degrees Fahrenheit, heart rate 96, blood pressure 149/71, respiratoryrate 20, SpO2 99% on room air. GENERAL: Middle-aged male in no acute distress. EYES: Pupils equal, round, reactive to light, extraocular movements intact. ENT: Moist mucous membranes, oropharynx clear. NECK: Supple, no lymphadenopathy. RESPIRATORY: Lungs clear to auscultation bilaterally. Normal effort. CARDIOVASCULAR: Regular rate and rhythm, 2/6 systolic murmur heard best at right upper sternal border. No peripheral edema. GASTROINTESTINAL: Soft, nontender, nondistended. Bowel sounds normoactive. No rebound tenderness or guarding. SKIN: Warm, dry. Small skin tear over left hemodialysis fistula without any surrounding erythema or purulence. Dialysis fistula in left leg otherwise unremarkable. MUSCULOSKELETAL: No apparent joint swelling, erythema or tenderness. PSYCHIATRIC: Normal affect, appropriate. NEUROLOGIC: Alert. Responding to questions appropriately. He is aware he is in the hospital but not sure which one. Not oriented to date. Able to report events leading to hospitalization. Following allcommands. LABORATORY DATA: Per [facility] records, albumin 4.2, alkaline phosphatase 86, ALT 36, AST 33 and total bilirubin 0.9, BUN 86, C-reactive protein 17.30, calcium 9.1, chloride 90, bicarbonate 23, creatinine 13.1, glucose 185, hemoglobin 9.5. Lactate 1.4, white blood cell count is 7.14 with percent neutrophils 85.6, potassium 4.0, sodium 133, total protein 7.3. Troponin I is 0.02. ProBNP is 20,300. Influenza swab was negative. Chest x-ray reported as negative, formal radiology read not included. Films were reviewed and discussed informally by me with [facility] radiology staff with no focal infiltrates identified. ASSESSMENT AND PLAN: Julio Cesar Sandhu is a 50-year-old male with past medical history significantfor end-stage renal disease on hemodialysis, hypertension, secondary hyperparathyroidism, obstructive sleep apnea, anemia of chronic disease, type 2 diabetes mellitus with diabetic retinopathy, hyperlipidemia, DVT of upper extremity who is directly admitted from [facility] after presenting there with a fever at his dialysis unit. He is admitted on 08/09/2015 for further workup and treatment of this. Fever Reportedly was 104 Fahrenheit at dialysis. On arrival to [facility] was 102.1. Initial workup at [facility] did not reveal a specific source of infection, including negative chest x-ray, negative flu swab, normal liver function tests. His white blood cell count was normal, although with a neutrophilic predominance. He does have a small skin tear over his fistula site which does not appear to be overtly infected as it is without erythema or purulence. His fistula site also does not appear to be overtly infected in general. He does not have any neck stiffness or headache to suggest a DRAGLINE MECHANIC infection. He and his aunt deny any recent diarrhea to suggest Clostridium difficile. As he is a dialysis patient with significant health care exposure as well as recent admission at [facility] at the beginning of July, will treat him broadly with vancomycin and piperacillin-tazobactam until further culture has returned. He reportedly had only one single blood culture drawn at [facility]. I have ordered an additional 2 sets on arrival here, although note he has received 1 dose of his antibiotics to this point. I have also ordered a procalcitonin to help stratify him. It appears a urinalysis was ordered at [facility] but either not collected or not yet reported, although without any symptoms attributable to his urinary tract at this time. Will order a urinalysis with reflux to culture to ensure this was collected. Of note, he does have a murmur on exam, this may be a flow murmur in the setting of his anemia, although should his blood cultures become positive this certainly would warrant further evaluation with echocardiogram. Will continue to closely monitor fever curve as well as for any development of focal symptoms which may warrant a more directedworkup for source of infection. End-stage renal disease on hemodialysis By his report dialyzed regularly on , presented from dialysis unit on the date of admission.Nephrology has been consulted to resume his dialysis while hospitalized. At this point, he does not have any indications for urgent dialysis. Will continue on a dialysis diet and continue prior to admission dialysis meds once confirmed by pharmacy. Hypertension Blood pressure currently within normal limits. Plan to resume prior to admission blood pressure medications once dose is confirmed by pharmacy. History of upper extremity DVT Presently on Coumadin with INR 3.1 at [facility]. Pharmacy has been consulted for warfarin dosing. Obstructive sleep apnea Continue prior to admission CPAP per home settings. History of type 2 diabetes mellitus His most recent hemoglobin A1c was 5.1% 05/2014 and it appears his hemoglobin A1cs have been low in the [facility] system as well. Will recheck hemoglobin A1c during admission. He is not presently on any medications for this and again if his hemoglobin A1c is truly this low, it is obviously very well controlled. Would defer any blood sugar monitoring at this time based on that. Diabetic retinopathy, legal blindness Noted in records. Not an acute issue. Anemia of chronic disease Baseline hemoglobin appears to be around 9-10, currently at baseline. Monitor. Deep venous thrombosis prophylaxis: Warfarin Code status: Full code. Disposition: Admit to inpatient status for IV antibiotics and further infectious workup. Anticipate greater than or equal to 2 midnights prior to discharge. JANICE GASPAR MD MT: [id number] Name: JULIO CESAR SANDHU Account: [id number] : 1965 Admitted: [id number] Document: [id number] cc: Cornell Butt MD FINISHER documented in this encounter Consult Notes Raúl Ramachandran MD - 08/10/2015 10:03 AM CST ID consult dictated. Gram pos bacteremia. On Vanco. FINISHER Rúal Ramachandran MD - 08/10/2015 10:00 AM CST INFECTIOUS DISEASE CONSULTATION DATE OF CONSULTATION: 08/10/2015 REQUESTING PHYSICIAN: Dr. Janice Gaspar. REASON FOR CONSULTATION: I was asked by Dr. Gaspar to assess bacteremia. IMPRESSION: 1. Julio Cesar Sandhu is a 50-year-old male with diabetes mellitus. 2. End-stage renal disease, on hemodialysis. 3. Admitted on this occasion with acute onset of fever to 103 degrees and now found to have bacteremia with gram-positive cocci in pairs and chains. I suspect that the most likely source of his infection is the dialysis and perhaps the ProCol graft in the left leg. RECOMMENDATIONS: 1. The patient has been dosed with vancomycin. Would continue the same. 2. Await further identification and sensitivities on the likely Staph organism. 3. Follow serial blood cultures. 4. The Zosyn could be discontinued. HISTORY OF PRESENT ILLNESS: This is a 50-year-old -[place] male with diabetes mellitus and end-stage renal disease who is on hemodialysis 3 times a week. 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 The day prior to his admission, he was noting increased fatigue and presented to his dialysiswhere temperature was recorded at 104 degrees. He was then sent from dialysis to the [place] [facility]. There, a chest x-ray was unremarkable as were influenza and LFTs. White blood countwas normal. The patient was transferred to [facility]. After blood cultures were obtained, he was started on vancomycin and Zosyn. Multiple blood cultures are now positive for gram-posi tive cocci in clusters. The patient denies cough, dyspnea, dysuria, diarrhea. PAST MEDICAL HISTORY: 1. Diabetes mellitus. 2. End-stage renal disease. 3. Obstructive sleep apnea. 4. Hypertension. 5. Secondary hyperparathyroidism. 6. Vitamin D deficiency. 7. TURP. SOCIAL HISTORY: Tobacco: None. Lives with his aunt and his mother in [place]. FAMILY HISTORY: Positive for colon cancer. REVIEW OF SYSTEMS: Completely reviewed and negative other than that described above. ALLERGIES: Aspirin--GI bleed. PHYSICAL EXAMINATION: VITAL SIGNS: Temperature 99.1, blood pressure 122/78, heart rate 85 and regular. GENERAL: Well-developed, well-nourished, alert and oriented, minimally conversant. SKIN: No rashes or nodules. HEENT: Eyes: Patient is legally blind. Oropharynx without erythema or exudate. NECK: Supple. LUNGS: Clear to auscultation, no use of accessory muscles of respiration. COR: S1, S2 normal, no S3, S4 or murmur. ABDOMEN: Soft, nontender, no mass or hepatosplenomegaly. EXTREMITIES: The patient is currently in dialysis with the use of left leg ProCol graft. No obvious erythema or drainage around the graft. No calf tenderness or pedal edema. For further details of the patient's history, please refer to the chart. Thank you very much for this consultation. RAÚL RAMACHANDRAN MD MT: [id number] Name: JULIO CESAR SANDHU Account: [id number] : 1965 Consult Date: 08/10/2015 Document: [id number] cc: Janice Gaspar MD FINISHER Shahzad Osorio MD - 08/10/2015 8:47 AM CSTAssociated Order(s): VASCULAR SURGERY IP CONSULT [facility] History and Physical Vascular Surgery Date of Admission: 08/09/2015 Date of Service (when I saw the patient): 08/10/2015 Assessment and Plan Julio Cesar Sandhu is a 50 year old male who presents with fever of 104 F and suspected infection near the left thigh A-V graft. Patient has a known PTFE left thigh loop graft that has recently been revised with ProCal bovine mesenteric vein to replace some aneurysmal segments of the venous outflow portion of the graft (07/07/2015). The patient has 2/2 blood cultures from [place], [place] hospital that suggest GPC in clusters and suggestive of bacteremia. He is currently on Zosyn and Vancomycin for broad spectrum coverage of his infection. It's possible the graft has some component of infection and may be worth trying antibiotics to see if we can save the graft. There does appear to be some short segments of PTFE left in the thighgraft. It ultimately may be necessary to remove the thigh graft if his clinic picture is not improving. We will continue to follow his progress. In the meantime an arterial duplex of the left thigh graft will be ordered to evaluate for infection. Shahzad Osorio MD Code Status Full Code Primary Care Physician CORNELL BUTT Chief Complaint Fever History of Present Illness Julio Cesar Sandhu is a 50 year old male who presents with 50 yo legally blind gentleman that presented to his routine appointment for dialysis in [place], [place] where he was found to have a fever of 104 F. He was transferred to the ER there and blood cultures were performed suggesting 2/2 GPC. The patient was then transferred to [facility] for evaluation and treatment. He denies having issues at home prior to his presentation at the dialysis center and says he has not had any pain in his left thigh. The patient otherwise denies other symptoms of systemic illness. He underwent extensive work up in the [place] [facility] and other sources of possible infection were negative. Past Medical History I have reviewed this patient's medical history and updated it with pertinent information if needed. Past Medical History Diagnosis Date ??? Hypertension ??? Anemia ??? Retinopathy ??? Kidney disease ??? Kidney disease ??? Hyperkalemia ??? ESRD (end stage renal disease) dialysis T-TH-Tue ??? Blind ??? DVT (deep venous thrombosis) ??? Orthostasis ??? Diabetes mellitus ??? Syncope ??? Hypertension ??? A-V fistula left forearm ??? Hyperlipemia ??? Cognitive deficits ??? Anemia ??? Sleep apnea CPAP ??? Chronic in-center hemodialysis status ??? Hyperlipidaemia Past Surgical History I have [...] Prescriptions Last Dose Informant Patient Reported? Taking? Cholecalciferol (VITAMIN D3 PO) 08/08/2015 at Unknown time Senior Escrow Officer Yes Yes Sig: Take 2,000 Units by mouth daily LISINOPRIL PO 08/08/2015 at Unknown time Senior Escrow Officer Yes Yes Sig: Take 20 mg by mouth Take on M, W, F, [place] (Non-dialysis days only) Metoprolol Tartrate (LOPRESSOR PO) 08/08/2015 at pm Senior Escrow Officer Yes Yes Sig: Take 100 mg by mouth 2 times daily Takes on M, W, F, [place] (Non-dialysis days only) b zkrixwe-B-wzrpb acid (NEPHROCAPS) 1 MG capsule 08/08/2015 at Unknown time Senior Escrow Officer Yes Yes Sig: Take 1 capsule by mouth daily bisacodyl (DULCOLAX) 5 MG EC tablet 08/08/2015 at Unknown time Senior Escrow Officer Yes Yes Sig: Take 10 mg by mouth Take on M, W, F, [place] (Non-dialysis days only) calcium acetate (PHOSLO) 667 MG CAPS 08/09/2015 at am Senior Escrow Officer Yes Yes Sig: Take 1,334 mg by mouth 3 times daily (with meals) calcium acetate (PHOSLO) 667 MG CAPS 08/08/2015 at Unknown time Senior Escrow Officer Yes Yes Sig: Take 667 mg by mouth Take with snacks or supplements (as needed) simvastatin (ZOCOR) 40 MG tablet 08/08/2015 at pm Senior Escrow Officer Yes Yes Sig: Take 40 mg by mouth every evening warfarin (COUMADIN) 5 MG tablet 08/08/2015 at Unknown time Senior Escrow Officer No Yes Sig: Take 0.5 tablets by mouth daily. Patient taking differently: Take 5 mg by mouth daily Facility-Administered Medications: None Allergies Allergies Allergen Reactions ??? Aspirin [Dihydroxyaluminum Aminoacetate] GI Disturbance GI bleeding Social History I have reviewed this patient's [...] the HPI or here. Physical Exam Temp: 98.9 ??F (37.2 ??C) Temp src: Oral BP: 167/77 mmHg Pulse: 86 Resp: 16 SpO2: 100 % O2 Device: None (Room air) Vital Signs with Ranges Temp: [98.7 ??F (37.1 ??C)-103.1 ??F (39.5 ??C)] 98.9 ??F (37.2 ??C) Pulse: [82-98] 86 Resp: [16-22] 16 BP: (143-169)/(64-77) 167/77 mmHg FiO2 (%): [30 %] 30 % SpO2: [99 %-100 %] 100 % 192 lbs 10.91 oz Constitutional: awake, alert, cooperative, no apparent distress, and appears stated age ENT: Normocephalic, without obvious abnormality, atramatic, sinuses nontender on palpation, externalears without lesions, oral pharynx with moist mucus membranes, tonsils without erythema or exudates,gums normal and good dentition. Respiratory: No increased work of breathing, good air exchange, clear to auscultation bilaterally, no crackles or wheezing Cardiovascular: Normal apical impulse, regular rate and rhythm, normal S1 and S2, no S3 or S4, and no murmur noted GI: No scars, normal bowel sounds, soft, non-distended, non-tender, no masses palpated, no hepatosplenomegally Skin: no bruising or bleeding and normal skin color, texture, turgor. There is some warmth to the touch around the dialysis access, but no significant swelling, no drainage of fluid and no induration. He also denies tenderness to the palpation. Ext: warm and well perfused. Distal pulses are normal PT and DP. He has a great thrill through the left thigh loop graft. There are old scars present and an area of skin that is raw and from old accesssite. No purulent drainage noted. He does have warmth to the touch around the graft. Musculoskeletal: There is no redness, warmth, or swelling of the joints. Full range of motion noted.Motor strength is 5 out of 5 all extremities bilaterally. Tone is normal. Data Results for orders placed or performed during the hospital encounter of 08/09/15 (from the past 24 hour(s)) Procalcitonin Result Value Ref Range Procalcitonin 32.46 (HH) ng/ml Platelet count Result Value Ref Range Platelet Count 99 (L) 150 - 450 10e9/L Renal panel Result Value Ref Range Sodium 132 (L) 133 - 144 mmol/L Potassium 3.6 3.4 - 5.3 mmol/L Chloride 94 94 - 109 mmol/L Carbon Dioxide 23 20 - 32 mmol/L Anion Gap 15 (H) 3 - 14 mmol/L Glucose 153 (H) 70 - 99 mg/dL Urea Nitrogen 96 (H) 7 - 30 mg/dL Creatinine 14.00 (H) 0.66 - 1.25 mg/dL GFR Estimate 4 (L) >60 mL/min/1.7m2 GFR Estimate If Black 5 (L) >60 mL/min/1.7m2 Calcium 8.4 (L) 8.5 - 10.1 mg/dL Phosphorus 2.3 (L) 2.5 - 4.5 mg/dL Albumin 3.3 (L) 3.4 - 5.0 g/dL Blood culture Result Value Ref Range Specimen Description Blood Left Arm Special Requests Aerobic and anaerobic bottles received Culture Micro (A) Cultured on the 1st day of incubation: Gram positive cocci in clusters Critical Value/Significant Value, preliminary result only, called to and read back by Xochilt Ford RN, @ 0651 08.10.2015 BL Micro Report Status Pending Blood culture Result Value Ref Range Specimen Description Blood Right Arm Special Requests Aerobic and anaerobic bottles received Culture Micro (A) Cultured on the 1st day of incubation: Gram positive cocci in clusters Critical Value/Significant Value, preliminary result only, called to and read back by Xochilt Ford RN, @ 0651 08.10.2015 BL Micro Report Status Pending INR Result Value Ref Range INR 3.02 (H) 0.86 - 1.14 Glucose by meter Result Value Ref Range Glucose 161 (H) 70 - 99 mg/dL CBC with platelets Result Value Ref Range WBC 5.3 4.0 - 11.0 10e9/L RBC Count 3.05 (L) 4.4 - 5.9 10e12/L Hemoglobin 8.2 (L) 13.3 - 17.7 g/dL Hematocrit 24.8 (L) 40.0 - 53.0 % MCV 81 78 - 100 fl MCH 26.9 26.5 - 33.0 pg MCHC 33.1 31.5 - 36.5 g/dL RDW 17.5 (H) 10.0 - 15.0 % Platelet Count 89 (L) 150 - 450 10e9/L FINISHER Associated attestation - Malka Smith - 08/14/2015 8:10 AM WOOD FINISHER Physician Attestation I, Malka Smith, saw and evaluated Julio Cesar Sandhu as part of a shared visit. I have reviewed and discussed with the advanced practice provider their history, physical and plan. I personally reviewed the vital signs, medications, labs and imaging. My sanz history or physical exam findings: Mr. Sandhu is s/p revision of his left thigh PTFE loop dialysis graft by Dr. Buenrostro in June 2015 after this graft thrombosed. He had placement of a Procalbovine mesenteric vein graft, however did have a cuff of PTFE left in place at both the venous and arterial anastomoses. He subsequently presented with a fever and suspected infection of this left thigh dialysis access graft. Sanz management decisions made by me: Currently Mr. Sandhu is being dialyzed through this graft and from Dr. Buenrostro's previous notes on him he does not have many options for dialysis access as his bilateral arms no longer have veins for dialysis grafts. At this time, given that the patient is stable and not septic we will continue with IV antibiotics. The Procal graft should be less susceptible to infection than PTFE. We will continue to follow. He may ultimately require removal of the graft. Malka Smith Date of Service (when I saw the patient): 08/11/15 documented in this encounter Nursing Notes Dannielle Oakes, LINDA - 08/13/2015 5:[address] Buenrostro and MDA in to see patient consent done, PRBC 1 unit started at 1708 . See epic FINISHER documented in this encounter Miscellaneous Notes Plan of Care - Harriett Conklin RN - 08/17/2015 1:55 PM CST Problem: Goal Outcome Summary Goal: Goal Outcome Summary Outcome: Adequate for Discharge Date Met: 08/17/15 VSS. AO X4. No c/o pain. No oozing noted from R fistula site. L tunnel cath c/d/i. Discharge to home. Will continue Tuesday, , Tuesday schedule. Discharge instructions given to pt and aunt over phone. All belongings returned to pt. FINISHER Plan of Care - Suzanna Velasquez, LINDA - 08/17/2015 4:13 AM CST Problem: Goal Outcome Summary Goal: Goal Outcome Summary Outcome: Improving A/O x4, forgetful at times. VSS on room air. Blind. C/o 1/10 soreness to R groin area, gave PRN acetaminophen with relief. Tunneled cath in L groin and immature fistula in R groin, dressings C/D/I. Vascular following. On IV abx. SBA and cane. FINISHER Plan of Care - Harriett Conklin RN - 08/16/2015 1:51 PM CST Problem: Goal Outcome Summary Goal: Goal Outcome Summary Outcome: Improving AO x4. VSS. Blind. No c/o pain. Tunneled cath in L groin and immature fistula in R groin. Vascular following. On IV abx. Dialysis today. Up with SBA and cane. FINISHER Plan of Care - Rachel Flores RN - 08/16/2015 5:43 AM CST Problem: Goal Outcome Summary Goal: Goal Outcome Summary Outcome: No Change Alert to self and place. Up w/SBA. CPAP on at night. Hypertensive at times, rechecked at 141/66. Dressing on left groin has scant drainage, otherwise WDL. C/O headache. PRN tylenol given. Continue to monitor. FINISHER Plan of Care - Caitlyn Sherwood RN - 08/15/2015 9:47 PM CST Problem: Goal Outcome Summary Goal: Goal Outcome Summary Outcome: No Change Care Plan Summary Note: Pt. A and O x2-3, forgetful and vague with answers. Denies disomcofrt when asked. Zelalem cath present in right groin, no drainage noted. Left groin new AV fistuala , no drainage noted. Pt has a good appetite and frequently asks for extra food. [address] Dialysis tomorrow at 1130. Creat elevated at 10.2. Up witcammieh adam activity, fall risk precautions inplace. No urine output. FINISHER Plan of Care - Beatris Fish RN - 08/15/2015 1:02 PM CST Problem: Goal Outcome Summary Goal: Goal Outcome Summary Outcome: Improving A&O - forgetful at times. BP's running high this AM - improved after morning meds. All other VSSon RA. Denies pain. Lung sound diminished. Fluid restriction of 1500. Dialysis diet. Fistula site and tunneled cath site WDL. Up with SBA. Cont to monitor. FINISHER Plan of Care - Fern Black RN - 08/15/2015 6:45 AM CST Problem: Goal Outcome Summary Goal: Goal Outcome Summary Outcome: No Change HR 94-102 overnight, RR 18-24 at times. Sepsis protocol, LA 0.8. QD blood cultures.Other VSS. Pt hasproductive cough, sputum clear. LS diminished (unable to take deep breaths). New tunneled dialysis cath placed on 08/14/15 [address] loose drsg, flying squad managed overnight, CDI. L groin AV fistulas CDI, Br uit/Thrill+. CPAP use approx 3 hrs. CTM. FINISHER Provider Notification - Fern Black RN - 08/15/2015 4:26 AM CST MD Notification Notified Person: MD Notified Persons Name: Notification Date/Time: Notification Interaction: Talked with Physician Purpose of Notification: Need 2- doses Heparin Lock 1000 units/mL for tunneled dialysis catheter REDand BLUE lumens. Orders Received: Comments: FINISHER Plan of Care - Anusha Cano RN - 08/14/2015 11:50 PM CST Problem: Goal Outcome Summary Goal: Goal Outcome Summary Outcome: Improving Pt is slow to respond and forgetful at times, but otherwise A & O. VSS. CMS intact. Had tunneledcatheter placed in R groin today, CDI. Had dialysis today, on renal diet. Up with SBA. FINISHER Plan of Care - Emile Elizabeth RN - 08/14/2015 6:17 PM CST Problem: Goal Outcome Summary Goal: Goal Outcome Summary Outcome: No Change Right tunneled catheter was placed in right groin this am; subsequently had dialysis (became hypotensive in dialysis but bounced back per report). O/W VSS. Site is c/d/i; CMS are intact. Left groin dialysis site is also c/d/i (s/p revision last night); no further s/sx of bleeding noted. Hgb 7.3. INR 1.63. Restraints have been off all day. Patient is forgetful and slow to respond but has been calm andcooperative. FINISHER Plan of Care - Fern Black RN - 08/14/2015 5:15 AM CST Problem: Goal Outcome Summary Goal: Goal Outcome Summary Outcome: No Change VSS on RA. A&Ox3 (date). SBA. LLE AV graft-- 4 new sites placed on evenings-- bruit/thrill+ , CDI to dermabond. Drsg to old fistula CDI, b/t+. Dialysis today @ 1200. Per notes UTD if prior fistula is accessible-- may need timothy cath. Hgb improved 7.3, Na+131, INR 1.63. WBC up 6 today. D/c restraints overnight, precautionary mitt to L hand. FINISHER Provider Notification - Fern Black RN - 08/14/2015 1:46 AM CST MD Notification Notified Person: MD Notified Persons Name: Emily Notification Date/Time: 08/14/15 @0100 Notification Interaction: Talked with Physician Purpose of Notification: Pt needs diet order Orders Received: Previous diet ordered Comments: FINISHER Op Note - Jaxon Buenrostro MD - 08/13/2015 8:33 PM CST PREOPERATIVE DIAGNOSIS: Bleeding composite left groin PTFE ProCol dialysis access graft. POSTOPERATIVE DIAGNOSIS: Bleeding left groin composite PTFE ProCol graft secondary to PTFE graft pseudoaneurysm. PROCEDURES: 1. Revision of left groin graft with 25 cm ProCol mesenteric vein graft. 2. Evacuation of left graft hematoma-debridement of skin, partial excision of the graft. SURGEON: Jaxon Buenrostro MD [employer] ATTENDANT: SHAHZAD OSORIO MD, vascular fellow LAWYERS: HILLARY MONAE MD ([facility] [place] surgery resident) ANESTHESIA: General. PREOPERATIVE MEDICATIONS: Ancef 2 grams IV. INDICATIONS: Julio Cesar Sandhu is on chronic hemodialysis with very poor access sites. He has a left groin/thigh graft. This is a PTFE graft from the common femoral artery to the mid thigh. Approximately amonth ago we replaced the venous outflow from the mid thigh to the groin with a ProCol mesenteric vein. The patient presented with fevers and evidence of sepsis. He is noted to have several remaining pseudoaneurysms on the PTFE portion of the graft that we are waiting to eventually repair. The patientdeveloped skin breakdown over the PTFE segment of the graft and had significant bleeding earlier today from the area that was not enough pressure. The graft was still patent. It was felt that revision or ligation of the graft was indicated to prevent rebleed. DESCRIPTION OF PROCEDURE: The patient was brought to operating room, induced under general anesthesia, orally intubated without difficulty. He was placed in a frog-leg position. We removed the dressings from the left groin. It was obvious that the bleeding was from the PTFE segment and not the anastomosis of our ProCol graft. We therefore decided we may be able to salvage the graft with a new ProCol segment on the arterial limb. The groin-thigh were prepped and draped in the usual fashion, isolatingwith an Ioban particularly over the opened area that had organized thrombus within it. PROCOL REVISION: Timeout was called and the sites were identified. We made our first incision over the proximal lateral thigh and dissection was carried down to identify the inflow portion of the PTFE 6 mm graft. This had a strong pulse within it. This was dissected free to allow placement of a vascular clamp. We then opened our previous mid proximal thigh incision. Dissection was carried down to identify a well incorporated PTFE graft. It was difficult to identify the anastomosis to the ProCol. Dueto the patient's recent bleeding he was not heparinized. We clamped the PTFE graft inflow. The graftwas then transected beyond this. This was irrigated with heparinized saline solution in the inflow and outflow. We then placed a small vascular clamp on the ProCol graft and excised the PTFE segment. We dissected down to where only the ProCol graft was left and excised PTFE graft which had no evidenceof infection at this site. A 25 cm ProCol 6 mm graft was selected and prepared appropriately. It wasplaced in the appropriate direction. This was sewn to the venous outflow ProCol in a spatulated fashion with running 6-0 Prolene suture. Upon doing so, we noted that there were 2 holes within the old ProCol graft from our vascular clamp which were repaired with mattress 6-0 and 7-0 Prolene suture. Good backbleeding was noted. From the arterial limb, we placed a stepladder incision between the two anastomotic areas and brought our new ProCol graft due to the disrupted area where the hematoma was with the aid of a vascular clamp and a Ryann-Wick tunneler. The graft was trimmed obliquely as was the PTFE segment and end-to-end anastomosis was created with running 6-0 Prolene suture. Prior to complete closure of the graft we noticed we had poor inflow. We passed a #4 Farrah with a small amount of thrombus being returned and we had a strong pulse now as we completed the anastomosis. Good hemostasis was appreciated. We needed additional 7-0 Prolene suture repair of the old ProCol graft where it had been damaged by our vascular clamp. An excellent pulse was noted. The skin edges were debrided on the original graft- ProCol anastomosis. All 3 incisions were closed with interrupted 3-0Vicryl deep. The arterial anastomosis and distal incisions were closed with 4-0 Vicryl in subcuticular fashion. The ProCol-ProCol anastomotic incision was closed with interrupted 4-0 Monocryl. Surgicalglue was placed over all 3 sites. We had good Doppler signals within the graft. EVACUATION OF HEMATOMA AND REMOVAL OF PTFE SEGMENT: We then removed the Ioban dressing. There was thrombus over the site had been previously bleeding. An elliptical incision was made around this until we had better skin. We evacuated the organized hematoma. There was a PTFE graft in the base with obvious disruption of the anterior surface from the pseudoaneurysm (likely from use with dialysis needles). The graft itself appeared to be well incorporated no evidence of infection. We excised approximately 3 cm of the graft in each direction until it was very well incorporated. It would have been too difficult to excise the entire graft with our present situation. Clean tissue was noted in all quadrants . Wound was irrigated with Betadine. The wound edges were approximated with interrupted simple and mattress 2-0 nylon sutures. Gauze dressings were applied. The patient tolerated the procedure well. Estimated blood loss was 25 mL. COMPLICATIONS: None. The replaced segment of the ProCol graft that has been placed a month ago in the venous outflow willbe too short to use for dialysis. We will have to see if there is any type of tunneled catheter thatcan be placed in this patient who is a very difficult to access due to central venous stenosis in the upper extremities. JAXON BUENROSTRO MD MT: [id number] Name: JULIO CESAR SANDHU Account: [id number] : 1965 Procedure Date: 08/13/2015 Document: [id number] cc: [facility] Jaxon Buenrostro MD FINISHER Brief Op Note - Hillary Elias MD - 08/13/2015 8:28 PM WOOD FINISHER [facility] Brief Operative Note Pre-operative diagnosis: Bleeding from left leg dialysis access Post-operative diagnosis Same Procedure: Procedure(s): LEFT GROIN DIALYSIS ACCESS BLEED, PROCOL REVISION Surgeon(s): Surgeon(s) and Role: * Jaxon Buenrostro MD - Primary Estimated blood loss: 25 mL Specimens: * No specimens in log * Findings: Bleeding from aneurysmal segment of inflow of graft, bypassed aneurysmal segment and revised with new procal graft. No evidence of infection. FINISHER Plan of Care - Emile Elizabeth RN - 08/13/2015 6:55 PM CST Problem: Goal Outcome Summary Goal: Goal Outcome Summary Outcome: No Change Patient bled from dialysis site this afternoon (see significant event) - now in OR for exploration of dialysis graft bleeding site. Patient did c/o feeling weak and lightheaded after bleeding. Hgb dropped to 6.9 from 7.7 - 1unit PRBC transfusing in OR. INR 3.3 - received Vit K. VSS. No c/o pain. Dialysis is scheduled for tomorrow at 0730. FINISHER Significant Event - Emile Elizabeth RN - 08/13/2015 2:17 PM CST Patient started bleeding from dialysis site - approximately 1L of blood (upsetter pad was completely saturated with excessive pooling noted between patient's body and bed). VS o/w stable: BP 131/63; HR 70's. Patient did c/o feeling weaker and lightheaded. Pressure was immediately applied to area of bleeding. MD was notified. See orders. Will continue to monitor. FINISHER Plan of Care - Tena Santamaria RN - 08/13/2015 5:18 AM CST Problem: Goal Outcome Summary Goal: Goal Outcome Summary Outcome: Improving Pt A&Ox4, but slow to respond to questions. VSS. Denies pain this shift. CPAP on while sleeping. FINISHER Plan of Care - Cornelio Black RN - 08/12/2015 10:02 PM CST Problem: Goal Outcome Summary Goal: Goal Outcome Summary Outcome: No Change A&O. VSS on RA. Tylenol given x 1 for complaints of back pain 10 with relief. Up with SBA. Up in the chair for dinner. On dialysis diet; good appetite. IV Ancef post dialysis. Bruit/thrill present at left thigh fistula site. Blood cultures daily. Discharge unknown. FINISHER Plan of Care - Compa Nj - 08/12/2015 2:41 PM CST Problem: Discharge Planning Goal: Discharge Planning (Adult, OB, Behavioral, Peds) CM: The discharge plan is for patient to return home with his aunt, who is his caregiver.RH/SW FINISHER Plan of Care - Marisol Pabon RN - 08/12/2015 2:26 PM CST Problem: Goal Outcome Summary Goal: Goal Outcome Summary Outcome: Improving Patient Alert. Up SBA. Dialysis today. Vitals stable, afebrile. Denies pain. IV antibiotics. Left thigh fistula dressing CDI. Possible discharge tomorrow. FINISHER Plan of Care - Suzanna Hartman RN - 08/12/2015 5:50 AM CST Problem: Goal Outcome Summary Goal: Goal Outcome Summary Outcome: Improving A&Ox3. VSS. L/S diminished. O2 sats 98% on RA. Denies pain. Legally blind. SBA. Dialysis pt withlf thigh fistula. Dressing cdi. Discharge planned 08/13/15. FINISHER Plan of Care - Beatris Fish RN - 08/11/2015 8:57 PM CST Problem: Goal Outcome Summary Goal: Goal Outcome Summary Outcome: Improving A&O. VSS on RA - afebrile. Denies pain. Lung sounds diminished. Bruit and thrill present at L thigh fistula site. IV ancef. Dialysis planned for tomorrow. Up with SBA. Continue to monitor. FINISHER Plan of Care - Mackenzie Ashton RN - 08/11/2015 2:13 PM CST Problem: Goal Outcome Summary Goal: Goal Outcome Summary Outcome: No Change VSS. No c/o chest pain or SOB. +BC. Vascular surgery consulted. Drsg changed at L thigh fistula site. Small amount of drainage noted. +bruit/thrill noted. Many watery stools noted this shift. Stool sent to lab for c/o c-diff. Slept most of shift. Lethargy noted. Discharge plan unknown at this time pending progress. FINISHER Provider Notification - Mackenzie Ashton, LINDA - 08/11/2015 8:39 AM WOOD FINISHER Another call received from microbiology. +BC taken on 08/10/15 from left arm. Call placed to Dr. Ramachandran. FINISHER Provider Notification - Mackenzie Ashton RN - 08/11/2015 8:14 AM WOOD FINISHER Call Received from microbiology regarding + blood cultures. Updated Dr. Ramachandran. This culture was taken in dialysis on 08/10/15. FINISHER Plan of Care - Xochilt Ford, LINDA - 08/11/2015 5:32 AM CST Problem: Goal Outcome Summary Goal: Goal Outcome Summary Outcome: No Change Pt a/o, VSS. Denies pain. Had dialysis yest w/ 3kg removed. Up w/ 1. L thigh Gortex w/ +bruit/thrill. Multiple +BC. Erica dc'd, on IV Vanco. Cr 16.1. Plan for echo today d/t murmur. Will continue to monitor. FINISHER Provider Notification - Cristiana Newton RN - 08/10/2015 3:41 PM CST Spoke with Dr. Gaspar regarding Na of 128. Lab was done prior to dialysis. No new order, continue to monitor FINISHER Plan of Care - Esme Reed, RN - 08/10/2015 3:08 PM CST Problem: Goal Outcome Summary Goal: Goal Outcome Summary Outcome: Improving Pt A&O, legally blind. Asst 1 for transfers. VSS on RA, Afebrile, LS diminished at bases. L thigh fistula w/ positive thrill and bruit, dressing CDI. Went for dialysis this morning. Creat 16.1. NA-128. IV vanco, ID following. BC of L arm positive for gram + clusters and staph, but no MRSA. Continue to monitor. FINISHER Pharmacy-Vancomycin Dosing Service - Joi Salcido [facility] - 08/10/2015 1:36 PM CST Pharmacy Vancomycin Note Date of Service August 10, 2015 Patient's 1965 50 year old, male Indication: Sepsis Goal Trough Level: 15-20 mg/L Day of Therapy: 2 Current Vancomycin regimen: Intermittent dosing based on levels Current estimated CrCl = Estimated Creatinine Clearance: 5.4 mL/min (based on Cr of 16.1). Creatinine for last 3 days 08/09/2015: 12:50 PM Creatinine 14.00 mg/dL* 08/10/2015: 8:24 AM Creatinine 16.10 mg/dL* Recent Vancomycin Levels (past 3 days) 08/10/2015: 8:24 AM Vancomycin Level 10.8 mg/L Vancomycin IV Administrations (past 72 hours) No vancomycin orders with administrations in past 72 hours. Nephrotoxins and other renal medications (Future) Start Dose/Rate Route Frequency Ordered Stop 08/11/15 0800 lisinopril (PRINIVIL,ZESTRIL) tablet 20 mg 20 mg Oral Once per day on Sun Tue08/10/15 0827 08/10/15 1400 vancomycin (VANCOCIN) 1500 mg in 0.9% NaCl 250 mL PREMIX 1,500 mg Intravenous ONCE 08/10/15 1335 08/09/[address] [facility] - receiving intermittent dosing 1 each Does not apply SEE ADMIN INSTRUCTIONS 08/09/15 1435 Contrast Orders - past 72 hours None Interpretation of levels and current regimen: Trough level is Subtherapeutic Has serum creatinine changed > 50% in last 72 hours: No Urine output: Hemodialysis Renal Function: ESRD on Dialysis Plan: 1. Vancomycin 1500 mg IV x 1 dose 2. Pharmacy will check trough levels as appropriate in 1-3 Days based on dialysis schedule 3. Serum creatinine levels will be ordered daily for the first week of therapy and at least twice weekly for subsequent weeks. Joi Salcido, PharmD . FINISHER Provider Notification - Esme Reed RN - 08/10/2015 9:[address] Gaspar notified of BC from L arm positive for gram+ clusters, staph, and no MRSA. FINISHER Provider Notification - Esme Reed RN - 08/10/2015 9:35 AM WOOD FINISHER Notified provider that lab called and are unable to read HGB-A1C because value is to low. Wont be able to get a number until total HGB goes up. FINISHER Plan of Care - Xochilt Ford RN - 08/10/2015 6:57 AM CST Problem: Goal Outcome Summary Goal: Goal Outcome Summary Outcome: No Change Pt a/o, legally blind. VSS ex tmax 103.1, improved to 99 w/ Tylenol. Denies pain. Generalized weakness. L thigh graft site w/ +bruit/thrill. +BC x2, receiving IV Zosyn & Vanco. Cr 14, plan for dialysis today. Will continue to monitor. FINISHER Provider Notification - Xochilt Ford RN - 08/10/2015 12:27 AM CDT Call & fax received from [facility] show gram positive cocci. paged to notify & copy left in chart. Plan of Care - Guru Pollard RN - 08/09/2015 10:48 PM CDT Problem: Goal Outcome Summary Goal: Goal Outcome Summary Outcome: No Change T max 99, weak, able to voice needs, denies pain, +thrill/bruit on left groin vascular graft, deniespain. Asleep at present with CPAP on, sat 100%. Pt plans to have dialysis tomorrow am. Plan of Care - Cristiana Newton RN - 08/09/2015 6:16 PM CDT Problem: Goal Outcome Summary Goal: Goal Outcome Summary Outcome: No Change Pt remains lethargic but arouseable. T max 102.7, all other VSS on RA. Up with SBA. Tolerating diet.Denies any pain. IV abx. Pt to have dialysis tomorrow. Continue to monitor Pharmacy-Anticoagulation Service - Wilner Martinez, [facility] - 08/09/2015 5:18 PM CDT Clinical Pharmacy - Warfarin Dosing Consult Pharmacy has been consulted to manage this patient???s warfarin therapy. Indication: DVT/ PE Treatment Therapy Goal: INR 2-3 Warfarin Prior to Admission: Yes Warfarin CALL CENTER SUPPORT CONSULTANT Regimen: 5 mg PO daily Recent documented change in oral intake/nutrition: Unknown INR Date Value Ref Range Status 08/09/2015 3.02* 0.86 - 1.14 Final Recommend warfarin 2.5 mg today. Pharmacy will monitor Julio Cesar Sandhu daily and order warfarin doses to achieve specified goal. Please contact pharmacy as soon as possible if the warfarin needs to be held for a procedure or if the warfarin goals change. Pharmacy-Admission Medication History - Joi Salcido RP - 08/09/2015 3:01 PM CDT Admission medication history interview status for the 08/09/2015 admission is complete. See [facility] admission navigator for prior to admission medications Medication history source reliability:Good Actions taken by pharmacist (provider contacted, etc):Reviewed patient chart and documents from previous hospital. Spoke with patient's caregiver to verify medications and last doses. Additional medication history information not noted on CALL CENTER SUPPORT CONSULTANT med list :None Medication reconciliation/reorder completed by provider prior to medication history? No Time spent in this activity: 30 minutes Prior to Admission medications Medication Sig Last Dose Taking? Auth Provider calcium acetate (PHOSLO) 667 MG CAPS Take 667 mg by mouth Take with snacks or supplements (as needed) 08/08/2015 at Unknown time Yes Dummy, Bfp User LISINOPRIL PO Take 20 mg by mouth Take on M, W, F, [place] (Non-dialysis days only) 08/08/2015 at Unknowntime Yes Reported, Patient bisacodyl (DULCOLAX) 5 MG EC tablet Take 10 mg by mouth Take on M, W, F, [place] (Non-dialysis days only)08/08/2015 at Unknown time Yes Dummy, Bfp User Cholecalciferol (VITAMIN D3 PO) Take 2,000 Units by mouth daily 08/08/2015 at Unknown time Yes Dummy, Bfp User Metoprolol Tartrate (LOPRESSOR PO) Take 100 mg by mouth 2 times daily Takes on M, W, F, [place] (Non-dialysis days only) 08/08/2015 at pm Yes Dummy, Bfp User warfarin (COUMADIN) 5 MG tablet Take 0.5 tablets by mouth daily. Patient taking differently: Take 5 mg by mouth daily 08/08/2015 at Unknown time Yes Alejandro Emerson MD calcium acetate (PHOSLO) 667 MG CAPS Take 1,334 mg by mouth 3 times daily (with meals) 08/09/2015 atam Yes Reported, Patient b [id number] acid (NEPHROCAPS) 1 MG capsule Take 1 capsule by mouth daily 08/08/2015 at Unknowntime Yes Reported, Patient simvastatin (ZOCOR) 40 MG tablet Take 40 mg by mouth every evening 08/08/2015 at pm Yes Reported, Patient Joi Salcido, Alicia Plan of Care - Esme Reed RN - 08/09/2015 2:37 PM CDT Problem: Goal Outcome Summary Goal: Goal Outcome Summary Outcome: No Change Pt admitted from [facility]. Was to have dialysis this am but was found to have a fever andwas sent to the ER. Fairly lethargic, arouses to voice. VSS, fever 102.1 and 101.1 tylenol given, O299% on RA, denies pain. LS diminished. Nephrology following. Creat 14. Fall risk, unsure about how he moves at this point. Provider Notification - Esme Reed RN - 08/09/2015 2:[address] Gaspar notified of procalcitonin of 32.46. documented in this encounter Plan of Treatment Not on filedocumented as of this encounter Procedures Procedure Name Priority Date/Time Associated Comments Diagnosis INR Routine 08/17/2015 8:14 AM Results f or this WOOD FINISHER procedure are i n the results section. BLOOD CULTURE Routine 08/17/2015 8:14 AM Bacteremia Results for this WOOD FINISHER procedure are i n the results section. INR Routine 08/16/2015 9:13 AM Results f or this WOOD FINISHER procedure are i n the results section. BLOOD CULTURE Routine 08/16/2015 9:13 AM Bacteremia Results for this WOOD FINISHER procedure are i n the results section. INR Routine 08/15/2015 3:45 AM Results f or this WOOD FINISHER procedure are i n the results section. PLATELET COUNT Routine 08/15/2015 3:45 AM Results for this WOOD FINISHER procedure are i n the results section. LACTIC ACID STAT 08/15/2015 3:45 AM Results f or this WOOD FINISHER procedure are i n the results section. BLOOD CULTURE Routine 08/15/2015 3:45 AM Bacteremia Results for this WOOD FINISHER procedure are i n the results section. IR CVC TUNNEL Routine 08/14/2015 11:17 Results fo r this PLACEMENT > 5 YRS OF AM WOOD FINISHER procedu re are in AGE the results section. INR Routine 08/14/2015 3:40 AM Results f or this WOOD FINISHER procedure are i n the results section. BLOOD CULTURE Routine 08/14/2015 3:40 AM Bacteremia Results for this WOOD FINISHER procedure are i n the results section. BASIC METABOLIC PANEL Routine 08/14/2015 3:40 AM Results for this WOOD FINISHER procedure are i n the results section. CBC WITH PLATELETS Routine 08/14/2015 3:40 AM Res ults for this WOOD FINISHER procedure are i n the results section. INR Timed 08/13/2015 10:50 Results for this PM WOOD FINISHER procedure are i n the results section. GLUCOSE BY METER Routine 08/13/2015 6:19 PM Resul ts for this WOOD FINISHER procedure are i n the results section. CREATION, GRAFT, 08/13/2015 5:19 PM unknown ARTERIOVENOUS, LOWER WOOD FINISHER EXTREMITY BLOOD COMPONENT Routine 08/13/2015 2:15 PM Result s for this WOOD FINISHER procedure are i n the results section. BLOOD COMPONENT Routine 08/13/2015 2:15 PM Result s for this WOOD FINISHER procedure are i n the results section. INR STAT 08/13/2015 2:15 PM Results f or this WOOD FINISHER procedure are i n the results section. ABO/RH TYPE AND SCREEN STAT 08/13/2015 2:15 PM Results for this WOOD FINISHER procedure are i n the results section. CBC WITH PLATELETS STAT 08/13/2015 2:15 PM Res ults for this WOOD FINISHER procedure are i n the results section. BLOOD COMPONENT Routine 08/13/2015 2:00 PM Result s for this WOOD FINISHER procedure are i n the results section. BLOOD COMPONENT Routine 08/13/2015 2:00 PM Result s for this WOOD FINISHER procedure are i n the results section. PREPARE PLASMA (UNIT) Routine 08/13/2015 2:00 PM Bacteremia Results for this WOOD FINISHER procedure are i n the results section. INR Routine 08/13/2015 8:26 AM Results f or this WOOD FINISHER procedure are i n the results section. BLOOD CULTURE Routine 08/13/2015 8:26 AM Bacteremia Results for this WOOD FINISHER procedure are i n the results section. BASIC METABOLIC PANEL Routine 08/13/2015 8:26 AM Results for this WOOD FINISHER procedure are i n the results section. INR Routine 08/12/2015 8:14 AM Results f or this WOOD FINISHER procedure are i n the results section. BLOOD CULTURE Routine 08/12/2015 8:14 AM Bacteremia Results for this WOOD FINISHER procedure are i n the results section. BASIC METABOLIC PANEL Routine 08/12/2015 8:14 AM Results for this WOOD FINISHER procedure are i n the results section. CBC WITH PLATELETS Routine 08/12/2015 8:14 AM Res ults for this WOOD FINISHER procedure are i n the results section. CLOSTRIDIUM DIFFICILE Routine 08/11/2015 12:50 Re sults for this TOXIN B PM WOOD FINISHER procedure are i n the results section. ECHO COMPLETE Routine 08/11/2015 9:36 AM Results for this WOOD FINISHER procedure are i n the results section. BLOOD CULTURE Routine 08/11/2015 8:41 AM Results for this WOOD FINISHER procedure are i n the results section. INR Routine 08/11/2015 8:38 AM Results f or this WOOD FINISHER procedure are i n the results section. BASIC METABOLIC PANEL Routine 08/11/2015 8:38 AM Results for this WOOD FINISHER procedure are i n the results section. BLOOD CULTURE Routine 08/11/2015 8:36 AM Results for this WOOD FINISHER procedure are i n the results section. US EXTREMITY ARTERIAL Routine 08/10/2015 3:07 PM Results for this VENOUS DIALYSIS ACCESS WOOD FINISHER proce liyah are in GRAFT the results section. BLOOD CULTURE Routine 08/10/2015 1:55 PM Results for this WOOD FINISHER procedure are i n the results section. BLOOD CULTURE STAT 08/10/2015 11:00 Results fo r this AM WOOD FINISHER procedure are i n the results section. VANCOMYCIN LEVEL STAT 08/10/2015 8:24 AM Resul ts for this WOOD FINISHER procedure are i n the results section. INR Routine 08/10/2015 8:24 AM Results f or this WOOD FINISHER procedure are i n the results section. HEMOGLOBIN A1C Routine 08/10/2015 8:24 AM Results for this WOOD FINISHER procedure are i n the results section. BASIC METABOLIC PANEL Routine 08/10/2015 8:24 AM Results for this WOOD FINISHER procedure are i n the results section. CBC WITH PLATELETS Routine 08/10/2015 8:24 AM Res ults for this WOOD FINISHER procedure are i n the results section. GLUCOSE BY METER Routine 08/09/2015 10:49 Results for this PM CDT procedure are i n the results section. INR Timed 08/09/2015 4:03 PM Results f or this CDT procedure are i n the results section. BLOOD CULTURE STAT 08/09/2015 1:02 PM Results for this CDT procedure are i n the results section. BLOOD CULTURE STAT 08/09/2015 12:55 Results fo r this PM CDT procedure are i n the results section. PROCALCITONIN STAT 08/09/2015 12:50 Results fo r this PM CDT procedure are i n the results section. RENAL PANEL Routine 08/09/2015 12:50 Results for this PM CDT procedure are i n the results section. PLATELET COUNT Routine 08/09/2015 12:50 Results f or this PM CDT procedure are i n the results section. documented in this encounter Results Blood culture (08/17/2015 8:14 AM WOOD FINISHER) Patholo gist Method Time Signature Specimen Blood Right SIMON Description Arm [facility] Special Aerobic and SIMON Requests anaerobic [facility] received Culture Micro No growth INFECTIOUS DISEASE DIAGNOSTIC LABORATORY Micro Report FINAL INFECTIOUS Status 08/23/2015 DISEASE DIAGNOSTIC LABORATORY Specimen Anatomical Collection Method Collection Time Receive d Time (Source) Location / / Volume Laterality Blood specimen 08/17/2015 8:14 AM 015 8:19 (specimen) WOOD FINISHER AM WOOD FINISHER Hillary Carroll MD LAB - MICRO GENERAL ORDERABL ES Performing Organization Address City/State/ZIP Code Phon e Number INFECTIOUS DISEASES [address] [place] [phone] DIAGNOSTIC LABORATORY, [facility] [address] [phone] [phone] [facility] INFECTIOUS DISEASE [address] [place] [address] DIAGNOSTIC LABORATORY (ABNORMAL) INR (08/17/2015 8:14 AM WOOD FINISHER) P athologist Signature INR 1.90 (H) 0.86 - 1.14 [facility] Specimen Anatomical Collection Method Collection Time Receive d Time (Source) Location / / Volume Laterality Blood specimen 08/17/2015 8:14 AM 015 8:19 (specimen) WOOD FINISHER AM WOOD FINISHER Hillary Carroll MD LAB - BLOOD ORDERABLES Performing Organization Address City/State/ZIP Code Phon e Number [facility] [address] [phone] [facility] [address] [place] [address], [place] [phone] Blood culture (08/16/2015 9:13 AM WOOD FINISHER) [facility] Method Time Signature Specimen Blood Right SIMON Description Arm [facility] Special Aerobic and SIMON Requests anaerobic [facility] received Culture Micro No growth INFECTIOUS DISEASE DIAGNOSTIC LABORATORY Micro Report FINAL INFECTIOUS Status 08/22/2015 DISEASE DIAGNOSTIC LABORATORY Specimen Anatomical Collection Method Collection Time Receive d Time (Source) Location / / Volume Laterality Blood specimen 08/16/2015 9:13 AM 015 9:36 (specimen) WOOD FINISHER AM WOOD FINISHER Hillary Carroll MD LAB - MICRO GENERAL ORDERABL ES Performing Organization Address City/[facility]/ZIP [facility] Phon e Number INFECTIOUS DISEASES [address] [place] [phone] DIAGNOSTIC LABORATORY, [facility] [address] [place] [address], [facility] INFECTIOUS DISEASE [address] [place] [phone] [place] [address] DIAGNOSTIC LABORATORY (ABNORMAL) INR (08/16/2015 9:13 AM WOOD FINISHER) P athologist Signature INR 1.80 (H) 0.86 - 1.14 [facility] Specimen Anatomical Collection Method Collection Time Receive d Time (Source) Location / / Volume Laterality Blood specimen 08/16/2015 9:13 AM 015 9:37 (specimen) WOOD FINISHER AM WOOD FINISHER Hillary Carroll MD LAB - BLOOD ORDERABLES Performing Organization Address City/State/ZIP [facility] Phon e Number [facility] [address] [place] [address] [facility] [address] [place] [address], [facility] [phone] Lactic acid level STAT (08/15/2015 3:45 AM WOOD FINISHER) P athologist Signature Lactic Acid 0.8 0.4 - 2.0 SIMON mmol/L [facility] Specimen Anatomical Collection Method Collection Time Receive d Time (Source) Location / / Volume Laterality Blood specimen 08/15/2015 3:45 AM 015 4:00 (specimen) WOOD FINISHER AM WOOD FINISHER Jose Palomino MD LAB - BLOOD ORDERABLES Performing Organization Address City/State/ZIP Code Phon e Number [facility] [address] [place] [address] [facility] [address] [place] [address], [place] [phone] Blood culture (08/15/2015 3:45 AM WOOD FINISHER) Patholo gist Method Time Signature Specimen Blood Left SIMON Description Hand [facility] Special Aerobic and SIMON Requests anaerobic [facility] received Culture Micro No growth INFECTIOUS DISEASE DIAGNOSTIC LABORATORY Micro Report FINAL INFECTIOUS Status 08/21/2015 DISEASE DIAGNOSTIC LABORATORY Specimen Anatomical Collection Method Collection Time Receive d Time (Source) Location / / Volume Laterality Blood specimen 08/15/2015 3:45 AM 015 4:00 (specimen) WOOD FINISHER AM WOOD FINISHER Hillary Carroll MD LAB - MICRO GENERAL ORDERABL ES Performing Organization Address City/State/ZIP Code Phon e Number INFECTIOUS DISEASES [address] [place] [address] DIAGNOSTIC LABORATORY, [facility] [address] [phone] [phone] [facility] INFECTIOUS DISEASE [address] [place] [address], [facility] DIAGNOSTIC LABORATORY (ABNORMAL) INR (08/15/2015 3:45 AM WOOD FINISHER) P athologist Signature INR 1.36 (H) 0.86 - 1.14 [facility] Specimen Anatomical Collection Method Collection Time Receive d Time (Source) Location / / Volume Laterality Blood specimen 08/15/2015 3:45 AM 015 4:00 (specimen) WOOD FINISHER AM WOOD FINISHER Hillary Carroll MD LAB - BLOOD ORDERABLES Performing Organization Address City/State/ZIP Code Phon e Number [facility] [address] [place] [phone] [facility] [address] [place] [address], [place] [phone] (ABNORMAL) Platelet count (08/15/2015 3:45 AM WOOD FINISHER) P athologist Signature Platelet Count 138 (L) 150 - 450 SIMON 10e9/L [facility] Specimen Anatomical Collection Method Collection Time Receive d Time (Source) Location / / Volume Laterality Blood specimen 08/15/2015 3:45 AM 015 4:00 (specimen) WOOD FINISHER AM WOOD FINISHER Hillary Carroll MD LAB - BLOOD ORDERABLES Performing Organization Address City/State/ZIP Code Phon e Number [facility] [address] [address] [facility] [address] [phone], [facility] [phone] IR CVC Tunnel Placement > 5 Yrs of Age (08/14/2015 11:17 AM WOOD FINISHER) Anatomical Region Laterality Modality Chest Radio Fluoroscopy Specimen (Source) Anatomical Location Collection Method / Collectio n Time Received Time / Laterality Volume Addenda Addendum by Darrian Moya MD on 08/18 9:04 AM WOOD FINISHER Julio Cesar Sandhu Accession # [id number] The original report on this patient was dictated by myself. Maximal Sterile Barrier Technique Utilized: Cap AND mask AND sterile gown AND sterile gloves AND sterile full body grazyna pe AND hand hygiene AND skin preparation 2% chlorhexidine for cutaneo us antisepsis (or acceptable alternative antiseptics). ?? Sterile Ultrasound Technique Utilized ?S terile gel AND sterile probe covers. Darrian Moya M.D. ( Date of Addendum: ). DARRIAN MOYA MD Impressions 08/14/2015 4:25 PM WOOD FINISHER IMPRESSION: Successful right femoral tunneled dialysis catheter placement. DARRIAN MOYA MD Narrative 08/14/2015 4:25 PM WOOD FINISHER INTERVENTIONAL RADIOLOGY CVC TUNNEL PLACEMENT GREATER THAN FIVE YEARS OF AGE ??08/14/2015 11:17 AM HISTORY: ??50-year-old male with end-sta ge renal disease with recently revised left femoral dialysis loop graft . The patient requires temporary catheter dialysis via the righ t groin as he has known occluded central venous access in the up per extremities. Patient is also status post failed right groin fist odette. FINDINGS: ??The procedure was explained to the patient in detail, and informed consent was obtained. The patie nt was prepped and draped, and 1% lidocaine was used as local anestheti c. Ultrasound was used to document location and patency of the rig ht common femoral vein, and an image was obtained. Under sterile ultras ound guidance, a micropuncture needle was inserted in the right common femoral vein, and a wire was placed. A micro-sheath was then placed a nd subsequently upsized to a 5 Somali dilator. A subcutaneous tunnel wa s then created along the right thigh to the common femoral access site. A Palindrome 14.5 Somali 28 cm tip to cuff dialysis catheter was the n placed through the tunnel. The dilator was exchanged for a peel-alberto y sheath, and the dialysis catheter was advanced through the peel-a way sheath into the mid inferior vena cava. The peel-away sheath was removed. Both ports of the catheter were aspirated and flushed and demonstrated good function and were subsequently heparin locked. Th e catheter was sutured to the skin site with 2-0 Ethilon. A permanent fluoroscopic image was obtained documenting the tip of the dial ysis catheter in the inferior vena cava. There were no immediate compl ications. Fluoroscopy time: 1.6 minutes. Local anesthetic: 20 mL 1% lidocaine. Conscious sedation: 1 mg IV Versed, 50 m cg IV fentanyl. Sedation time: 26 minutes. The patient was monitored by radiology n ursing staff under my supervision and remained stable througho ut the study. Procedure Note Darrian Moya MD - 08/14/2015Formatti ng of this note might be different from the original. INTERVENTIONAL RADIOLOGY CVC TUNNEL PLAC EMENT GREATER THAN FIVE YEARS OF AGE 1108/14/2015 11:17 AM HISTORY: 50-year-old male with end-stage renal disease with recently revised left femoral dialysis loop graft . The patient requires temporary catheter dialysis via the righ t groin as he has known occluded central venous access in the up per extremities. Patient is also status post failed right groin fist odette. FINDINGS: The procedure was explained to the patient in detail, and informed consent was obtained. The patie nt was prepped and draped, and 1% lidocaine was used as local anestheti c. Ultrasound was used to document location and patency of the rig ht common femoral vein, and an image was obtained. Under sterile ultras ound guidance, a micropuncture needle was inserted in the right common femoral vein, and a wire was placed. A micro-sheath was then placed a nd subsequently upsized to a 5 Somali dilator. A subcutaneous tunnel wa s then created along the right thigh to the common femoral access site. A Palindrome 14.5 Somali 28 cm tip to cuff dialysis catheter was the n placed through the tunnel. The dilator was exchanged for a peel-alberto y sheath, and the dialysis catheter was advanced through the peel-a way sheath into the mid inferior vena cava. The peel-away sheath was removed. Both ports of the catheter were aspirated and flushed and demonstrated good function and were subsequently heparin locked. Th e catheter was sutured to the skin site with 2-0 Ethilon. A permanent fluoroscopic image was obtained documenting the tip of the dial ysis catheter in the inferior vena cava. There were no immediate compl ications. Fluoroscopy time: 1.6 minutes. Local anesthetic: 20 mL 1% lidocaine. Conscious sedation: 1 mg IV Versed, 50 m cg IV fentanyl. Sedation time: 26 minutes. The patient was monitored by radiology n ursing staff under my supervision and remained stable througho ut the study. IMPRESSION IMPRESSION: Successful right femoral eunice neled dialysis catheter placement. DARRIAN MOYA MD Hillary Carroll MD IMG IR ORDERABLES (ABNORMAL) INR (08/14/2015 3:40 AM WOOD FINISHER) P athologist Signature INR 1.63 (H) 0.86 - 1.14 [facility] Specimen Anatomical Collection Method Collection Time Receive d Time (Source) Location / / Volume Laterality Blood specimen 08/14/2015 3:40 AM 015 3:45 (specimen) WOOD FINISHER AM WOOD FINISHER Jose Palomino MD LAB - BLOOD ORDERABLES Performing Organization Address City/State/ZIP Code Phon e Number [facility] [address] [phone] [facility] [address] [address], [place] [phone] (ABNORMAL) Basic metabolic panel (08/14/2015 3:40 AM WOOD FINISHER) [facility] Method Time Signature Sodium 131 (L) 133 - 144 SIMON mmol/L [facility] Potassium 4.5 3.4 - 5.3 SIMON mmol/L [facility] Chloride 96 94 - 109 SIMON mmol/L [facility] Carbon Dioxide 26 20 - 32 SIMON mmol/L [facility] Anion Gap 9 3 - 14 SIMON mmol/L [facility] Glucose 118 (H) 70 - 99 SIMON mg/dL [facility] Urea Nitrogen 65 (H) 7 - 30 SIMON mg/dL [facility] Creatinine 10.20 (H) 0.66 - SIMON 1.25 mg/dL [facility] GFR Estimate 5 (L) >60 SIMON mL/min/1.[address] Comment: Non GFR Calc GFR Estimate If Black 7 (L) >60 mL/min/1.7m2 F [facility] Comment: GFR Calc Calcium 7.8 (L) 8.5 - 10.1 mg/dL [facility] Specimen Anatomical Collection Method Collection Time Receive d Time (Source) Location / / Volume Laterality Blood specimen 08/14/2015 3:40 AM 015 3:45 (specimen) WOOD FINISHER AM WOOD FINISHER Jose Palomino MD LAB - BLOOD ORDERABLES Performing Organization Address City/State/ZIP Code Phon e Number [facility] [address] [phone] [facility] [address] [address], [place] [phone] (ABNORMAL) CBC with platelets (08/14/2015 3:40 AM WOOD FINISHER) Analysis Performed At [facility] logist Time Signature WBC 6.5 4.0 - 11.0 SIMON 10e9/L [facility] RBC Count 2.67 (L) 4.4 - 5.9 SIMON 10e12/L [facility] Hemoglobin 7.3 (L) 13.3 - [facility] 17.7 g/dL [facility] Hematocrit 22.4 (L) 40.0 - SIMON 53.0 % [facility] MCV 84 78 - [address] [facility] MCH 27.3 26.5 - SIMON 33.[address] [facility] MCHC 32.6 31.5 - [place]ON 36.5 g/dL [facility] RDW 17.5 (H) 10.0 - SIMON 15.0 % [facility] Platelet Count 120 (L) 150 - 450 SIM[place] 10e9/L [facility] Specimen Anatomical Collection Method Collection Time Receive d Time (Source) Location / / Volume Laterality Blood specimen 08/14/2015 3:40 AM 015 3:45 (specimen) WOOD FINISHER AM WOOD FINISHER Jose Palomino MD LAB - BLOOD ORDERABLES Performing Organization Address City/State/ZIP Code Phon e Number [facility] [address] [phone] [facility] [address] [address], [facility] [phone] Blood culture (08/14/2015 3:40 AM WOOD FINISHER) [facility] Method Time Signature Specimen Blood Right SIMON Description Arm [facility] Special Aerobic and SIMON Requests anaerobic [facility] received Culture Micro No growth INFECTIOUS DISEASE DIAGNOSTIC LABORATORY Micro Report FINAL INFECTIOUS Status 08/20/2015 DISEASE DIAGNOSTIC LABORATORY Specimen Anatomical Collection Method Collection Time Receive d Time (Source) Location / / Volume Laterality Blood specimen 08/14/2015 3:40 AM 015 3:45 (specimen) WOOD FINISHER AM WOOD FINISHER Hillary Carroll MD LAB - MICRO GENERAL ORDERABL ES Performing Organization Address City/State/ZIP Code Phon e Number INFECTIOUS DISEASES [address] [place] [address] DIAGNOSTIC LABORATORY, [facility] [address] [phone] [phone] HOSPITAL INFECTIOUS DISEASE [address] [place] [address], [facility] DIAGNOSTIC LABORATORY (ABNORMAL) INR (08/13/2015 10:50 PM WOOD FINISHER) P athologist Signature INR 1.72 (H) 0.86 - 1.14 [facility] Specimen Anatomical Collection Method Collection Time Receive d Time (Source) Location / / Volume Laterality Blood specimen 08/13/2015 10:50 5 (specimen) PM WOOD FINISHER 10:55 PM WOOD FINISHER Ivone Bearden [facility] LAB - BLOOD ORDERABLES Performing Organization Address City/State/ZIP Code Phon e Number [facility] [address] [place] [address] [facility] [address] [place] [address], [place] [phone] (ABNORMAL) Glucose by meter (08/13/2015 6:19 PM WOOD FINISHER) P athologist Signature Glucose 221 (H) 70 - 99 POINT OF CARE mg/dL TEST, GLUCOSE Specimen Anatomical Collection Method Collection Time Receive d Time (Source) Location / / Volume Laterality 08/13/2015 6:19 PM 5 6:25 WOOD FINISHER PM WOOD FINISHER Maria Fernanda Queen MD LAB - BEAKER POCT Performing Organization Address City/State/ZIP Code Phon e Number FV POINT OF CARE TEST, GLUCOSE POINT OF CARE TEST, GLUCOSE Blood component (08/13/2015 2:15 PM WOOD FINISHER) [facility] Trans[facility]a Method Time Signature Unit Number [id number] [facility] Blood Red Blood Cells SIMON Component LeukoReduced [facility] Type (Part 2) HOSPITAL Division 00 [facility] Status of Released to [facility] Unit unit [facility] Specimen Anatomical Collection Method Collection Time Receive d Time (Source) Location / / Volume Laterality 08/13/2015 2:15 PM 5 2:26 WOOD FINISHER PM WOOD FINISHER Janice Gaspar MD LABORATORY Performing Organization Address City/State/ZIP Code Phon e Number [facility] [address] [place] [address] [facility] [address] [place] [address], [place] [phone] Blood component (08/13/2015 2:15 PM WOOD FINISHER) Patholo gist Method Time Signature Unit Number [id number] [facility] Blood Red Blood SIMON Component Cells [facility] Reduced Division 00 [facility] Status of No longer SIMON Unit available [facility] 08/17/2015 HOSPITAL 0300 Specimen Anatomical Collection Method Collection Time Receive d Time (Source) Location / / Volume Laterality 08/13/2015 2:15 PM 5 2:26 WOOD FINISHER PM WOOD FINISHER Janice Gaspar MD LABORATORY Performing Organization Address City/State/ZIP Code Phon e Number M [facility] [address] [place], [place] [address] [facility] [address] [place] [address], [facility] [phone] [facility] [address] [place], [place] [address], [facility] [phone] (ABNORMAL) CBC with platelets (08/13/2015 2:15 PM WOOD FINISHER) athologist Signature WBC 4.7 4.0 - 11.0 SIMON 10e9/L [facility] RBC Count 2.64 (L) 4.4 - 5.9 SIM[place] 10e12/L [facility] Hemoglobin 6.9 (LL) 13.3 - 17.7 SIMON g/dL [facility] Comment: This result has been called to EMILE by [facility] STUDENT 1 on 08/13/15 at 14:46, and has been read back. Hematocrit 21.9 (L) 40.0 - 53.0 % [facility] MCV 83 78 - 100 fl [facility] MCH 26.1 (L) 26.5 - 33.0 pg [facility] MCHC 31.5 31.5 - 36.5 g/dL [facility] RDW 17.7 (H) 10.0 - 15.0 % [facility] Platelet Count 131 (L) 150 - 450 10e9/L [facility] Specimen Anatomical Collection Method Collection Time Receive d Time (Source) Location / / Volume Laterality Blood specimen 08/13/2015 2:15 PM 015 2:26 (specimen) WOOD FINISHER PM WOOD FINISHER Janice Gaspar MD LAB - BLOOD ORDERABLES Performing Organization Address City/State/ZIP Code Phon e Number [facility] [address] [place] [address] [phone] [facility] [address] [place] [address], [place] [phone] (ABNORMAL) INR (08/13/2015 2:15 PM WOOD FINISHER) P athologist Signature INR 3.30 (H) 0.86 - 1.14 [facility] Specimen Anatomical Collection Method Collection Time Receive d Time (Source) Location / / Volume Laterality Blood specimen 08/13/2015 2:15 PM 015 2:26 (specimen) WOOD FINISHER PM WOOD FINISHER Janice Gaspar MD LAB - BLOOD ORDERABLES Performing Organization Address City/[facility]/ZIP Code Phon e Number [facility] [address] [place] [address] [facility] [address] [place] [address], [place] [phone] ABO/Rh type and screen (08/13/2015 2:15 PM WOOD FINISHER) Patholo gist Method Time Signature Units Ordered 2 [facility] ABO O [facility] RH(D) Pos [facility] Antibody Neg SIMON Screen [facility] Test Valid [facility] Only At [facility] HOSPITAL Specimen 08/16/[address] [facility] Crossmatch Red Blood SIMON Cells [facility] Specimen Anatomical Collection Method Collection Time Receive d Time (Source) Location / / Volume Laterality Blood specimen 08/13/2015 2:15 PM 015 2:26 (specimen) WOOD FINISHER PM WOOD FINISHER Janice Gaspar MD LAB - BLOOD BANK TEST ORDER Performing Organization Address City/State/ZIP Code Phon e Number [facility] [address] [place] [address] [phone] [facility] [address] [place] [address], [place] [phone] Blood component (08/13/2015 2:00 PM WOOD FINISHER) [facility] Method Time Signature Unit Number [id number] [facility] Blood Plasma, [facility] Component Thawed [facility] 00 [facility] Status of No longer SIMON Unit available [facility] 08/16/2015 HOSPITAL 1439 Specimen Anatomical Collection Method Collection Time Receive d Time (Source) Location / / Volume Laterality 08/13/2015 2:00 PM 5 2:01 WOOD FINISHER PM WOOD FINISHER Janice Gaspar MD LABORATORY Performing Organization Address City/State/ZIP Code Phon e Number [facility] [address] [place] [address] [phone] [facility] [address] [place] [address], [place] [phone] Blood component (08/13/2015 2:00 PM WOOD FINISHER) [facility] Method Time Signature Unit Number [id number] [facility] Blood Plasma, SIMON Component Thawed [facility] 00 [facility] Status of No longer SIMON Unit available [facility] 08/16/2015 HOSPITAL 1439 Specimen Anatomical Collection Method Collection Time Receive d Time (Source) Location / / Volume Laterality 08/13/2015 2:00 PM 5 2:01 WOOD FINISHER PM WOOD FINISHER Janice Gaspar MD LABORATORY Performing Organization Address City/State/ZIP Code Phon e Number [facility] [address] [place] [phone] [facility] [address] [place] [address], [place] [phone] Plasma prepare order unit (08/13/2015 2:00 PM WOOD FINISHER) P athologist Signature Ordered Plasma [facility] Type [facility] Units Ordered 0 [facility] Specimen Anatomical Collection Method Collection Time Receive d Time (Source) Location / / Volume Laterality 08/13/2015 2:00 PM 11/04/201 5 2:01 WOOD FINISHER PM WOOD FINISHER Janice Gaspar MD BLOOD BANK PRODUCT ORDERABLE S Performing Organization Address City/State/ZIP Code Phon e Number [facility] [address] [place] [address] [phone] [facility] [address] [place] [address], [place] [phone] Blood culture (08/13/2015 8:26 AM WOOD FINISHER) Patholo gist Method Time Signature Specimen Blood Left [facility] Special Aerobic and SIMON Requests anaerobic [facility] received Culture Micro No growth [facility] Micro Report FINAL [facility] 08/19/2015 [facility] Specimen Anatomical Collection Method Collection Time Receive d Time (Source) Location / / Volume Laterality Blood specimen 08/13/2015 8:26 AM 015 8:35 (specimen) WOOD FINISHER AM WOOD FINISHER Hillary Carroll MD LAB - MICRO GENERAL ORDERABL ES Performing Organization Address City/State/ZIP Code Phon e Number [facility] [address] [place] [address] [facility] [address] [place] [address], [place] [phone] (ABNORMAL) INR (08/13/2015 8:26 AM WOOD FINISHER) P athologist Signature INR 3.38 (H) 0.86 - 1.14 [facility] Specimen Anatomical Collection Method Collection Time Receive d Time (Source) Location / / Volume Laterality Blood specimen 08/13/2015 8:26 AM 015 8:36 (specimen) WOOD FINISHER AM WOOD FINISHER Hillary Carroll MD LAB - BLOOD ORDERABLES Performing Organization Address City/State/ZIP Code Phon e Number [facility] [address] [place] [address] [phone] [facility] [address] [place] [address], [place] [phone] (ABNORMAL) Basic metabolic panel (08/13/2015 8:26 AM WOOD FINISHER) Analysis Performed At Patho logist Time Signature Sodium 131 (L) 133 - 144 SIMON mmol/L [facility] Potassium 3.9 3.4 - 5.3 SIMON mmol/L [facility] Chloride 94 94 - 109 SIMON mmol/L [facility] Carbon Dioxide 27 20 - 32 SIMON mmol/L [facility] Anion Gap 10 3 - 14 SIMON mmol/L [facility] Glucose 135 (H) 70 - 99 SIMON mg/dL [facility] Urea Nitrogen 53 (H) 7 - 30 SIMON mg/dL [facility] Creatinine 8.82 (H) 0.66 - SIMON 1.25 mg/dL [facility] GFR Estimate 6 (L) >60 SIMON mL/min/1.[address] Comment: Non GFR Calc GFR Estimate If Black 8 (L) >60 mL/min/1.7m2 F [facility] Comment: GFR Calc Calcium 8.0 (L) 8.5 - 10.1 mg/dL [facility] Specimen Anatomical Collection Method Collection Time Receive d Time (Source) Location / / Volume Laterality Blood specimen 08/13/2015 8:26 AM 015 8:36 (specimen) WOOD FINISHER AM WOOD FINISHER Janice Gaspar MD LAB - BLOOD ORDERABLES Performing Organization Address City/State/ZIP Code Phon e Number [facility] [address] [phone] [facility] [address] [address], [facility] [phone] Blood culture (08/12/2015 8:14 AM WOOD FINISHER) [facility] Method Time Signature Specimen Blood Left SIMON Description Arm [facility] Special Aerobic and SIMON Requests anaerobic [facility] received Culture Micro No growth INFECTIOUS DISEASE DIAGNOSTIC LABORATORY Micro Report FINAL INFECTIOUS Status 08/18/2015 DISEASE DIAGNOSTIC LABORATORY Specimen Anatomical Collection Method Collection Time Receive d Time (Source) Location / / Volume Laterality Blood specimen 08/12/2015 8:14 AM 015 8:28 (specimen) WOOD FINISHER AM WOOD FINISHER Hillary Carroll MD LAB - MICRO GENERAL ORDERABL ES Performing Organization Address City/State/ZIP [facility] Phon e Number INFECTIOUS DISEASES [address] [place] [address] DIAGNOSTIC LABORATORY, [facility] [address] [id number] INFECTIOUS DISEASE [address] [place] [address], [facility] DIAGNOSTIC LABORATORY (ABNORMAL) INR (08/12/2015 8:14 AM WOOD FINISHER) P athologist Signature INR 4.38 (H) 0.86 - 1.14 [facility] Specimen Anatomical Collection Method Collection Time Receive d Time (Source) Location / / Volume Laterality Blood specimen 08/12/2015 8:14 AM 015 8:28 (specimen) WOOD FINISHER AM WOOD FINISHER Hillary Carroll MD LAB - BLOOD ORDERABLES Performing Organization Address City/State/ZIP [facility] Phon e Number [facility] [address] [phone] [facility] [address] [address], [facility] [phone] (ABNORMAL) CBC with platelets (08/12/2015 8:14 AM WOOD FINISHER) Analysis Performed At Patho logist Time Signature WBC 4.4 4.0 - 11.0 SIMON 10e9/L [facility] RBC Count 2.87 (L) 4.4 - 5.9 SIM[place] 10e12/L [facility] Hemoglobin 7.7 (L) 13.3 - SIMON 17.7 g/dL [facility] Hematocrit 23.2 (L) 40.0 - SIMON 53.0 % [facility] MCV 81 78 - 100 [facility] MCH 26.8 26.5 - SIMON 33.[address] [facility] MCHC 33.2 31.5 - SIMON 36.5 g/dL [facility] RDW 17.3 (H) 10.0 - SIMON 15.0 % [facility] Platelet Count 128 (L) 150 - 450 SIM[place] 10e9/L [facility] Specimen Anatomical Collection Method Collection Time Receive d Time (Source) Location / / Volume Laterality Blood specimen 08/12/2015 8:14 AM 015 8:28 (specimen) WOOD FINISHER AM WOOD FINISHER Janice Gaspar MD LAB - BLOOD ORDERABLES Performing Organization Address City/State/ZIP Code Phon e Number [facility] [address] [place] [address] [facility] [address] [address], [place] [phone] (ABNORMAL) Basic metabolic panel (08/12/2015 8:14 AM WOOD FINISHER) [facility] Method Time Signature Sodium 127 (L) 133 - 144 SIMON mmol/L [facility] Potassium 4.1 3.4 - 5.3 SIMON mmol/L [facility] Chloride 91 (L) 94 - 109 SIMON mmol/L [facility] Carbon Dioxide 23 20 - 32 SIMON mmol/L [facility] Anion Gap 13 3 - 14 SIMON mmol/L [facility] Glucose 116 (H) 70 - 99 SIMON mg/dL [facility] Urea Nitrogen 94 (H) 7 - 30 SIMON mg/dL [facility] Creatinine 12.60 (H) 0.66 - SIMON 1.25 mg/dL [facility] GFR Estimate 4 (L) >60 SIMON mL/min/1.[address] Comment: Non GFR Calc GFR Estimate If Black 5 (L) >60 mL/min/1.7m2 F [facility] Comment: GFR Calc Calcium 8.2 (L) 8.5 - 10.1 mg/dL [facility] Specimen Anatomical Collection Method Collection Time Receive d Time (Source) Location / / Volume Laterality Blood specimen 08/12/2015 8:14 AM 015 8:28 (specimen) WOOD FINISHER AM WOOD FINISHER Janice Gaspar MD LAB - BLOOD ORDERABLES Performing Organization Address City/State/ZIP Code Phon e Number [facility] [address] [place] [address] [facility] [address] [address], [place] [phone] Clostridium difficile toxin B PCR (08/11/2015 12:50 PM WOOD FINISHER) Component Value Ref Test Analysis Performed At [facility] gist Range Method Time Signature Specimen Feces [facility] C Diff Toxin B Negative [facility] Negative: Clostridium difficile target D NA sequences NOT detected, presumed [place] [facility] negative for Clostridium difficile toxin B or t he number of bacteria present [facility] may be below the limit of detection for the test. [facility] FDA approved assay performed using [email or web address] GeneXpert real-t viktoria PCR. A negative result does not exclude actual disease due to Clostridium difficile and may be due to improper collection, handling and storage of the specimen or the number of organisms in the specimen is below the detection limit of the assay. Specimen Anatomical Collection Method Collection Time Receive d Time (Source) Location / / Volume Laterality Stool specimen 08/11/2015 12:50 5 1:04 (specimen) PM WOOD FINISHER PM WOOD FINISHER Janice Gaspar MD LAB - MICRO GENERAL ORDERABL ES Performing Organization Address City/State/ZIP Code Phon e Number [facility] [address] [place], [place] [phone] [place] [address] [address] [place] [address], [facility] [phone] Echocardiogram (08/11/2015 9:36 AM WOOD FINISHER) Anatomical Region Laterality Modality Echocardiography Specimen (Source) Anatomical Collection Method Collection Time Re ceived Time Location / / Volume Laterality 08/11/2015 8:47 AM WOOD FINISHER Narrative 08/11/2015 9:51 AM WOOD FINISHER Interpretation Summary [facility] Echocardiography Laboratory [address] [place] [address] Name: JULIO CESAR SANDHU : 1965 Study Date: 08/11/2015 08:47 AM Age: 50 yrs Gender: Male Patient Location: [facility] Reason For Study: Endocarditis Ordering Physician: JAINCE GASPAR Referring Physician: CORNELL BUTT Performed By: Emiliano Balderrama RDCS BSA: 1.9 m2 Height: 64 in Weight: 192 lb HR: 75 BP: 167/77 mmHg Procedure Complete Portable Echo Adult. Interpretation Summary The visual ejection fraction is estimate d at 60-65%. Left ventricular systolic function is no rmal. No obvious valvular vegetations within l imitations of a transthoracic study. The study was technically adequate. Left Ventricle The left ventricle is normal in size. Th ere is mild concentric left ventricular hypertrophy. Left ventricula r systolic function is normal. The visual ejection fraction is estimated at 60-65%. E by E prime ratio is between 8 and 15, which is indeterminate for assessment of left ventricular filling pressures. No regional wall adam on abnormalities noted. Right Ventricle The right ventricle is normal size. The right ventricular systolic function is normal. Atria The left atrium is moderately dilated. R ight atrial size is normal. There is no color Doppler evidence of an atrial s puri. Mitral Valve There is mild (1+) mitral regurgitation. Tricuspid Valve There is trace tricuspid regurgitation. Right ventricular systolic pressure could not be approximated due to inadequ ate tricuspid regurgitation. Normal IVC (1.5-2.5cm) with >50% respiratory co llapse; right atrial pressure is estimated at 5-10mmHg. Aortic Valve There is mild trileaflet aortic sclerosi s. No aortic regurgitation is present. No aortic stenosis is present. Pulmonic Valve Normal pulmonic valve. There is trace pu lmonic valvular regurgitation. Vessels The aortic root is normal size. Pericardium There is no pericardial effusion. Rhythm The rhythm was normal sinus. MMode/2D Measurements & Calculations IVSd: 1.3 cm LVIDd: 4.6 cm LVIDs: 3.2 cm LVPWd: 1.3 cm FS: 30.2 % EDV(Teich): 99.3 ml ESV(Teich): 42.2 ml LV mass(C)d: 228.0 grams Ao root diam: 3.3 cm LA dimension: 4.6 cm asc Aorta Diam: 3.3 cm LA/Ao: 1.4 LA Volume (BP): 77.0 ml LA Volume Index (BP): 40.1 ml/m2 Doppler Measurements & Calculations MV E max kelton: 109.0 cm/sec MV A max kelton: 78.4 cm/sec MV E/A: 1.4 MV dec time: 0.16 sec Ao V2 max: 186.0 cm/sec Ao max P.8 mmHg Lateral E/e': 12.4 Medial E/e': 15.1 Report approved by: Arnaldo Buenrostro 09:51 AM Procedure Note Nitin Gay MD - 08/11/2015For matting of this note might be different from the original. Interpretation Summary [facility] Echocardiography Laboratory [address] [place] [address] Name: JULIO CESAR SANDHU : 1965 Study Date: 08/11/2015 08:47 AM Age: 50 yrs Gender: Male Patient Location: [facility] Reason For Study: Endocarditis Ordering Physician: JANICE GASPAR Referring Physician: CORNELL BUTT Performed By: Emiliano Balderrama RDCS BSA: 1.9 m2 Height: 64 in Weight: 192 lb HR: 75 BP: 167/77 mmHg Procedure Complete Portable Echo Adult. Interpretation Summary The visual ejection fraction is estimate d at 60-65%. Left ventricular systolic function is no rmal. No obvious valvular vegetations within l imitations of a transthoracic study. The study was technically adequate. Left Ventricle The left ventricle is normal in size. Th ere is mild concentric left ventricular hypertrophy. Left ventricula r systolic function is normal. The visual ejection fraction is estimated at 60-65%. E by E prime ratio is between 8 and 15, which is indeterminate for assessment of left ventricular filling pressures. No regional wall adam on abnormalities noted. Right Ventricle The right ventricle is normal size. The right ventricular systolic function is normal. Atria The left atrium is moderately dilated. R ight atrial size is normal. There is no color Doppler evidence of an atrial s puri. Mitral Valve There is mild (1+) mitral regurgitation. Tricuspid Valve There is trace tricuspid regurgitation. Right ventricular systolic pressure could not be approximated due to inadequ ate tricuspid regurgitation. Normal IVC (1.5-2.5cm) with >50% respiratory co llapse; right atrial pressure is estimated at 5-10mmHg. Aortic Valve There is mild trileaflet aortic sclerosi s. No aortic regurgitation is present. No aortic stenosis is present. Pulmonic Valve Normal pulmonic valve. There is trace pu lmonic valvular regurgitation. Vessels The aortic root is normal size. Pericardium There is no pericardial effusion. Rhythm The rhythm was normal sinus. MMode/2D Measurements & Calculations IVSd: 1.3 cm LVIDd: 4.6 cm LVIDs: 3.2 cm LVPWd: 1.3 cm FS: 30.2 % EDV(Teich): 99.3 ml ESV(Teich): 42.2 ml LV mass(C)d: 228.0 grams Ao root diam: 3.3 cm LA dimension: 4.6 cm asc Aorta Diam: 3.3 cm LA/Ao: 1.4 LA Volume (BP): 77.0 ml LA Volume Index (BP): 40.1 ml/m2 Doppler Measurements & Calculations MV E max kelton: 109.0 cm/sec MV A max kelton: 78.4 cm/sec MV E/A: 1.4 MV dec time: 0.16 sec Ao V2 max: 186.0 cm/sec Ao max P.8 mmHg Lateral E/e': 12.4 Medial E/e': 15.1 Report approved by: Arnaldo Buenrostro 09:51 AM Janice Gaspar MD CV ECHO ORDERABLES Blood culture (08/11/2015 8:41 AM WOOD FINISHER) Component Value Ref Test Analysis Performed At [facility] Range Method Time Signature Specimen Blood [facility] Unspecified [place] [facility] Special Aerobic and [facility] anaerobic [facility] received BANK Culture Micro No growth INFECTIOUS DISEASE DIAGNOSTIC LABORATORY Micro Report FINAL INFECTIOUS Status 08/17/2015 DISEASE DIAGNOSTIC LABORATORY Specimen Anatomical Collection Method Collection Time Receive d Time (Source) Location / / Volume Laterality Blood specimen 08/11/2015 8:41 AM 015 8:43 (specimen) WOOD FINISHER AM WOOD FINISHER Hillary Carroll MD LAB - MICRO GENERAL ORDERABL ES Performing Organization Address City/[facility] Phon e Number INFECTIOUS DISEASES [address] [place] [address] DIAGNOSTIC LABORATORY, [id number] [place] [address] INFECTIOUS DISEASE [address] DIAGNOSTIC LABORATORY (ABNORMAL) Basic metabolic panel (08/11/2015 8:38 AM WOOD FINISHER) [facility] Method Time Signature Sodium 129 (L) 133 - 144 SIMON mmol/L [facility] Potassium 3.9 3.4 - 5.3 SIMON mmol/L [facility] Chloride 93 (L) 94 - 109 SIMON mmol/L [facility] Carbon Dioxide 24 20 - 32 SIMON mmol/L [facility] Anion Gap 12 3 - 14 SIMON mmol/L [facility] Glucose 96 70 - 99 SIMON mg/dL [facility] Urea Nitrogen 80 (H) 7 - 30 SIMON mg/dL [facility] Creatinine 10.90 (H) 0.66 - SIMON 1.25 mg/dL [facility] GFR Estimate 5 (L) >60 SIMON mL/min/1.[address] Comment: Non GFR Calc GFR Estimate If Black 6 (L) >60 mL/min/1.7m2 F [facility] Comment: GFR Calc Calcium 8.2 (L) 8.5 - 10.1 mg/dL [facility] Specimen Anatomical Collection Method Collection Time Receive d Time (Source) Location / / Volume Laterality 08/11/2015 8:38 AM 5 WOOD FINISHER 10:36 AM WOOD FINISHER Maria Fernanda Queen MD LAB - BLOOD ORDERABLES Performing Organization Address City/State/ZIP Code Phon e Number [facility] [address] [place] [address] [phone] [facility] [address] [place] [address], [place] [phone] (ABNORMAL) INR (08/11/2015 8:38 AM WOOD FINISHER) P athologist Signature INR 4.58 (H) 0.86 - 1.14 [facility] Specimen Anatomical Collection Method Collection Time Receive d Time (Source) Location / / Volume Laterality Blood specimen 08/11/2015 8:38 AM 015 8:42 (specimen) WOOD FINISHER AM WOOD FINISHER Hillary Carroll MD LAB - BLOOD ORDERABLES Performing Organization Address City/State/ZIP Code Phon e Number [facility] [address] [place] [address] [phone] [facility] [address] [place] [address], [place] [phone] Blood culture (08/11/2015 8:36 AM WOOD FINISHER) Patholo gist Method Time Signature Specimen Blood Right SIMON Description Hand [facility] Special Aerobic and SIMON Requests anaerobic [facility] received Culture Micro No growth INFECTIOUS DISEASE DIAGNOSTIC LABORATORY Micro Report FINAL INFECTIOUS Status 08/17/2015 DISEASE DIAGNOSTIC LABORATORY Specimen Anatomical Collection Method Collection Time Receive d Time (Source) Location / / Volume Laterality Blood specimen 08/11/2015 8:36 AM 015 8:42 (specimen) WOOD FINISHER AM WOOD FINISHER Janice Gaspar MD LAB - MICRO GENERAL ORDERABL ES Performing Organization Address City/State/ZIP Code Phon e Number INFECTIOUS DISEASES [address] [place] [address] DIAGNOSTIC LABORATORY, [facility] [address] [phone] [phone] [facility] INFECTIOUS DISEASE [address] [place] [address], [facility] DIAGNOSTIC LABORATORY US Ext Arterial Venous Dialys Acs Graft (08/10/2015 3:07 PM WOOD FINISHER) Anatomical Region Laterality Modality Vascular, Abdomen/Pelvis Ultrasound Specimen (Source) Anatomical Location Collection Method / Collectio n Time Received Time / Laterality Volume Impressions 08/10/2015 9:45 PM WOOD FINISHER IMPRESSION: 1. Patent left thigh profunda femoris ar shy to common femoral vein PTFE loop dialysis graft. 2. There has been interval development o f complex perigraft fluid collection at the apex of the graft whic h could represent sterile or infected perigraft fluid such as hematom a. 3. 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 4. There may be a small amount of fluid at the distal anastomosis to the common femoral vein as well. ? DARRIAN MOYA MD Narrative 08/10/2015 9:45 PM WOOD FINISHER US EXTREMITY ARTERIAL VENOUS DIALYSIS ACCESS GRAFT ??08/10/2015 3:07 PM HISTORY: ??50-year-old male with fever t o 104 degrees, recently status post surgical revision of left profunda femoris artery to common femoral vein PTFE dialysis loop graft. COMPARISON: 06/26/2015. FINDINGS: The left profunda to common fe moral vein PTFE dialysis graft is patent without evidence of stenosis. Since the previous study, 3.4 x 3.2 x 2.3 cm complex perigraft fluid c ollection has developed at the apex of the graft. Although this may rep resent hematoma related to access or recent surgical revision, give n the patient's history I cannot exclude this being infected perig raft fluid. In the arterial aspect of the graft ther e are two pseudoaneurysms identified with flow and partially throm bosed most proximal measuring 0.8 x 0.9 x 0.5 cm and the second slight ly distal towards the apex measuring 1.4 x 1.3 x 0.7 cm. There is a lso questionable small amount of perigraft fluid at the distal anastom osis to the common femoral vein. Inflow profunda femoris artery and outflow common femoral veins appear patent. Procedure Note Darrian Moya MD - 08/10/2015Formatti ng of this note might be different from the original. US EXTREMITY ARTERIAL VENOUS DIALYSIS AC CESS GRAFT 08/10/2015 3:07 PM HISTORY: 50-year-old male with fever to 104 degrees, recently status post surgical revision of left profunda femoris artery to common femoral vein PTFE dialysis loop graft. COMPARISON: 06/26/2015. FINDINGS: The left profunda to common fe moral vein PTFE dialysis graft is patent without evidence of stenosis. Since the previous study, 3.4 x 3.2 x 2.3 cm complex perigraft fluid c ollection has developed at the apex of the graft. Although this may rep resent hematoma related to access or recent surgical revision, give n the patient's history I cannot exclude this being infected perig raft fluid. In the arterial aspect of the graft ther e are two pseudoaneurysms identified with flow and partially throm bosed most proximal measuring 0.8 x 0.9 x 0.5 cm and the second slight ly distal towards the apex measuring 1.4 x 1.3 x 0.7 cm. There is a lso questionable small amount of perigraft fluid at the distal anastom osis to the common femoral vein. Inflow profunda femoris artery and outflow common femoral veins appear patent. IMPRESSION IMPRESSION: 1. Patent left thigh profunda femoris ar shy to common femoral vein PTFE loop dialysis graft. 2. There has been interval development o f complex perigraft fluid collection at the apex of the graft whic h could represent sterile or infected perigraft fluid such as hematom a. 3. 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 4. There may be a small amount of fluid at the distal anastomosis to the common femoral vein as well. DARRIAN MOYA MD Shahzad Osorio MD IMG US ORDERABLES (ABNORMAL) Blood culture (08/10/2015 1:55 PM WOOD FINISHER) Component Value Ref Test Analysis Performed At [facility] Range Method Time Signature Specimen Blood Left Arm MICRO RAPID Description TESTING LAB Culture Micro Cultured on the 1st day of incubation: Staphylococcus a ureus INFECTIOUS Critical Value/Significant Value, preliminary re sult only, called to and read DISEASE back by Ebony Luz Elena @0832 08/11/2015. CT DIAGNOSTIC Susceptibility testing done on previous specimen LABORATORY (A) Micro Report FINAL 08/13/2015 INFECTIOUS Status DISEASE DIAGNOSTIC LABORATORY Specimen Anatomical Collection Method Collection Time Receive d Time (Source) Location / / Volume Laterality Blood specimen 08/10/2015 1:55 PM 015 2:10 (specimen) WOOD FINISHER PM WOOD FINISHER Janice Gaspar MD LAB - MICRO GENERAL ORDERABL ES Performing Organization Address City/State/ZIP Code Phon e Number INFECTIOUS DISEASES [address] [place] [address] DIAGNOSTIC LABORATORY, [facility] MICRO RAPID TESTING LAB [address] [place] [id number] [facility] INFECTIOUS DISEASE [address] [place] [address] DIAGNOSTIC LABORATORY (ABNORMAL) Blood culture (08/10/2015 11:00 AM WOOD FINISHER) Component Value Ref Test Analysis Performed At Patholo gist Range Method Time Signature Specimen Blood DRAWN IN MICRO RAPID Description DIALYSIS TESTING LAB Special Aerobic and SIMON Requests anaerobic bottles [facility] received HOSPITAL Culture Micro Cultured on the 1st day of incubation: Staphylococcus a ureus INFECTIOUS Critical Value/Significant Value, preliminary re sult only, called to and read DISEASE back by Ebony Laguna RN @0811 08/11/2015. CT DIAGNOSTIC Susceptibility testing done on previous specimen LABORATORY (A) Micro Report FINAL 08/13/2015 INFECTIOUS Status DISEASE DIAGNOSTIC LABORATORY Specimen Anatomical Collection Method Collection Time Receive d Time (Source) Location / / Volume Laterality Blood specimen 08/10/2015 11:00 5 (specimen) AM WOOD FINISHER 11:57 AM WOOD FINISHER Raúl Ramachandran MD LAB - MICRO GENERAL ORDERABL ES Performing Organization Address City/State/ZIP Code Phon e Number INFECTIOUS DISEASES [address] [place], [place] [id number] DIAGNOSTIC LABORATORY, [facility] MICRO RAPID TESTING LAB [address] [place] [id number] , [facility] [address] [id number] INFECTIOUS DISEASE [address] [place] [id number] [place] [address] DIAGNOSTIC LABORATORY Vancomycin level (08/10/2015 8:24 AM WOOD FINISHER) P athologist Signature Vancomycin 10.8 mg/L [facility] Comment: Traditional Dosing therapeutic Range: ?Trough 8-20 mg/L ?Peak 20-50 mg/L Specimen Anatomical Collection Method Collection Time Receive d Time (Source) Location / / Volume Laterality Blood specimen 08/10/2015 8:24 AM 015 8:53 (specimen) WOOD FINISHER AM WOOD FINISHER Janice Gaspar MD LAB - BLOOD ORDERABLES Performing Organization Address City/State/ZIP Code Phon e Number [facility] [phone] [facility] [address] [place] [address], [place] SA [phone] (ABNORMAL) INR (08/10/2015 8:24 AM WOOD FINISHER) P athologist Signature INR 3.70 (H) 0.86 - 1.14 [facility] Specimen Anatomical Collection Method Collection Time Receive d Time (Source) Location / / Volume Laterality Blood specimen 08/10/2015 8:24 AM 015 8:39 (specimen) WOOD FINISHER AM WOOD FINISHER Hillary Carroll MD LAB - BLOOD ORDERABLES Performing Organization Address City/State/ZIP Code Phon e Number [facility] [address] [place] [address] [phone] [facility] [address] [place] [address], [place] SA [phone] Hemoglobin A1c (08/10/2015 8:24 AM WOOD FINISHER) [facility] gist Method Time Signature Hemoglobin A1C Below Assay Range 4.3 - 6.0 JEFFRY Lee Canceled, Test credited % DAWIT MATTHEWS CALLED ESME STA 66 AT 0928 [facility] Specimen Anatomical Collection Method Collection Time Receive d Time (Source) Location / / Volume Laterality Blood specimen 08/10/2015 8:24 AM 015 8:39 (specimen) WOOD FINISHER AM WOOD FINISHER Janice Gaspar MD LAB - BLOOD ORDERABLES Performing Organization Address City/State/ZIP Code Phon e Number [facility] [address] [place] [address] [phone] [facility] [address] [place] [address], U SA [phone] (ABNORMAL) CBC with platelets (08/10/2015 8:24 AM WOOD FINISHER) Analysis Performed At Path logist Time Signature WBC 5.3 4.0 - 11.0 [place] 10e9/L [facility] RBC Count 3.05 (L) 4.4 - 5.9 [place] 10e12/L [facility] Hemoglobin 8.2 (L) 13.3 - [place] 17.7 g/dL [facility] Hematocrit 24.8 (L) 40.0 - [place] 53.0 % [facility] MCV 81 78 - [address] [facility] MCH 26.9 26.5 - [place] 33.[address] [facility] MCHC 33.1 31.5 - [place] 36.5 g/dL [facility] RDW 17.5 (H) 10.0 - [place] 15.0 % [facility] Platelet Count 89 (L) 150 - 450 [place] 10e9/L [facility] Specimen Anatomical Collection Method Collection Time Receive d Time (Source) Location / / Volume Laterality Blood specimen 08/10/2015 8:24 AM 015 8:39 (specimen) WOOD FINISHER AM WOOD FINISHER Janice Gaspar MD LAB - BLOOD ORDERABLES Performing Organization Address City/State/ZIP Code Phon e Number [facility] [address] [phone] [facility] [address] [phone], U [phone] (ABNORMAL) Basic metabolic panel (08/10/2015 8:24 AM WOOD FINISHER) [facility] Method Time Signature Sodium 128 (L) 133 - 144 SIM[place] mmol/L [facility] Potassium 4.1 3.4 - 5.3 [place] mmol/L [facility] Chloride 91 (L) 94 - 109 SIM[place] mmol/L [facility] Carbon Dioxide 18 (L) 20 - 32 [place] mmol/L [facility] Anion Gap 19 (H) 3 - 14 [place] mmol/L [facility] Glucose 110 (H) 70 - 99 SIMON mg/dL [facility] Urea Nitrogen 120 (H) 7 - 30 SIMON mg/dL [facility] Creatinine 16.10 (H) 0.66 - [place] 1.25 mg/dL [facility] GFR Estimate 3 (L) >60 [place] mL/min/1.[address] Comment: Non GFR Calc GFR Estimate If Black 4 (L) >60 mL/min/1.7m2 F [facility] Comment: GFR Calc Calcium 8.4 (L) 8.5 - 10.1 mg/dL [facility] Specimen Anatomical Collection Method Collection Time Receive d Time (Source) Location / / Volume Laterality Blood specimen 08/10/2015 8:24 AM 015 8:39 (specimen) WOOD FINISHER AM WOOD FINISHER Janice Gaspar MD LAB - BLOOD ORDERABLES Performing Organization Address City/State/ZIP Code Phon e Number [facility] [address] [place] [address] [facility] [address] [place] [address], U SA [phone] (ABNORMAL) Glucose by meter (08/09/2015 10:49 PM CDT) P athologist Signature Glucose 161 (H) 70 - 99 POINT OF CARE mg/dL TEST, GLUCOSE Specimen Anatomical Collection Method Collection Time Receive d Time (Source) Location / / Volume Laterality 08/09/2015 10:49 08/09/2015 PM CDT 10:55 PM CDT Maria Fernanda Queen MD LAB - BEAKER POCT Performing Organization Address City/State/ZIP Code Phon e Number [facility] POINT OF CARE TEST, GLUCOSE POINT OF CARE TEST, GLUCOSE (ABNORMAL) INR (08/09/2015 4:03 PM CDT) P athologist Signature INR 3.02 (H) 0.86 - 1.14 [facility] Specimen Anatomical Collection Method Collection Time Receive d Time (Source) Location / / Volume Laterality Blood specimen 08/09/2015 4:03 PM 015 4:12 (specimen) CDT PM CDT Janice Gaspar MD LAB - BLOOD ORDERABLES Performing Organization Address City/State/ZIP Code Phon e Number [facility] [address] [place] [address] [facility] [address] [place] [address], [place] SA [phone] (ABNORMAL) Blood culture (08/09/2015 1:02 PM CDT) Component Value Ref Test Analysis Performed At [facility] gist Range Method Time Signature Specimen Blood Right Arm MICRO RAPID Description TESTING LAB Special Aerobic and [facility] Requests anaerobic bottles [facility] [place] Culture Micro Cultured on the 1st day of incubation: Staphylococcus a ureus INFECTIOUS Critical Value/Significant Value, preliminary re sult only, called to and read DISEASE back by Xochilt Ford RN, @ 1821 08.10.2015 BL DIAGNOSTIC Susceptibility testing done on previous specimen LABORATORY (A) Micro Report FINAL 08/12/2015 INFECTIOUS Status DISEASE DIAGNOSTIC LABORATORY Specimen Anatomical Collection Method Collection Time Receive d Time (Source) Location / / Volume Laterality Blood specimen 08/09/2015 1:02 PM 015 1:34 (specimen) CDT PM CDT Janice Gaspar MD LAB - MICRO GENERAL ORDERABL ES Performing Organization Address City/State/ZIP Code Phon e Number INFECTIOUS DISEASES [address] [place] [address] DIAGNOSTIC LABORATORY, [facility] MICRO RAPID TESTING LAB [address] [place] [id number] [place] [address] INFECTIOUS DISEASE [address] [place], [place] [id number] [place] [address] DIAGNOSTIC LABORATORY (ABNORMAL) Blood culture (08/09/2015 12:55 PM CDT) Component Value Ref Test Analysis Performed At [facility] Transpera Range Method Time Signature Specimen Blood Left Arm MICRO RAPID Description TESTING LAB Special Aerobic and [facility] Requests anaerobic bottles [facility] [place] Culture Micro Cultured on the 1st day of i ncubation: Staphylococcus aureus This isolate is INFECTIOUS presumed to be clindamycin resistant based on detection o f inducible DISEASE clindamycin resistance. DIAGN OSTIC Critical Value/Significant Value, preliminary re sult only, called to and read LABORATORY back by Xochilt Ford RN, @ 5294 08.10.2015 BL (Note) POSITIVE for STAPHYLOCOCCUS AUREUS and NEGATIVE for the mecA gene (not MRSA) by Verigene multiplex nucleic acid test. The mecA gene was not detected. Final identification and antimicrobial suscept ibility testing will be verified by standard methods. Specimen tested with Verigene multiplex, gram-positive blood culture nucleic acid test for the following targets: Staph aureus, S taph epidermidis, Staph lugdunensis, other Staph species, Enteroc occus faecalis, Enterococcus faecium, Streptococcus species, S. ag alactiae, S. anginosus grp., S. pneumoniae, S. pyogenes, Listeria sp., mecA (methicillin resistance) and Jose/B (vancomycin resistance). Critical Value/Significant Value called to and read back by Esme Reed RN. 11.1.15 @ 0943. Debitos (A) Micro Report FINAL 08/12/2015 INFECTIOUS Status DISEASE DIAGNOSTIC LABORATORY Organism: Cultured on the 1st day of i ncubation: Staphylococcus aureus This isolate is INFECTIOUS presumed to be clindamycin resistant based on detection o f inducible DISEASE clindamycin resistance. DIAGN OSTIC LABORATORY Specimen Anatomical Collection Method Collection Time Receive d Time (Source) Location / / Volume Laterality Blood specimen 08/09/2015 12:55 5 1:35 (specimen) PM CDT PM CDT Organism Antibiotic Method Susceptibility Cultured on the 1st day of Ciprofloxacin <=0.5 Susceptible ug/mL incubation: staphylococcus aureus this isolate is presumed to be clindamycin resistant based on detection of inducible clindamycin resistance. (jesus) Cultured on the 1st day of Clindamycin >8.0 Resistant ug/mL incubation: staphylococcus aureus this isolate is presumed to be clindamycin resistant based on detection of inducible clindamycin resistance. (jesus) Cultured on the 1st day of Erythromycin >8.0 Resistant ug/mL incubation: staphylococcus aureus this isolate is presumed to be clindamycin resistant based on detection of inducible clindamycin resistance. (jesus) Cultured on the 1st day of Gentamicin <=0.5 Susceptible ug/mL incubation: staphylococcus aureus this isolate is presumed to be clindamycin resistant based on detection of inducible clindamycin resistance. (jesus) Cultured on the 1st day of Levofloxacin 0.25 Susceptible ug/mL incubation: staphylococcus aureus this isolate is presumed to be clindamycin resistant based on detection of inducible clindamycin resistance. (jesus) Cultured on the 1st day of Oxacillin 0.5 S usceptible ug/mL incubation: staphylococcus aureus this isolate is presumed to be clindamycin resistant based on detection of inducible clindamycin resistance. (jesus) Cultured on the 1st day of Penicillin >2.0 Resistant ug/mL incubation: staphylococcus aureus this isolate is presumed to be clindamycin resistant based on detection of inducible clindamycin resistance. (jesus) Cultured on the 1st day of Tetracycline <=1.0 Susceptible ug/mL incubation: staphylococcus aureus this isolate is presumed to be clindamycin resistant based on detection of inducible clindamycin resistance. (jesus) Cultured on the 1st day of Trimethoprim/Sulfamethoxa <=0.5/9.5 Susceptible incubation: staphylococcus zole ug/mL aureus this isolate is presumed to be clindamycin resistant based on detection of inducible clindamycin resistance. (jesus) Cultured on the 1st day of Vancomycin 1.0 S usceptible ug/mL incubation: staphylococcus aureus this isolate is presumed to be clindamycin resistant based on detection of inducible clindamycin resistance. (jesus) Janice Gaspar MD LAB - MICRO GENERAL ORDERABL ES Performing Organization Address City/State/ZIP Code Phon e Number INFECTIOUS DISEASES [address] [place] [address] DIAGNOSTIC LABORATORY, [facility] MICRO RAPID TESTING LAB [address] [place] [address] [address], [facility] INFECTIOUS DISEASE [address] [place], [place] [address] DIAGNOSTIC LABORATORY (ABNORMAL) Renal panel (08/09/2015 12:50 PM CDT) [facility] Method Time Signature Sodium 132 (L) 133 - 144 SIM[place] mmol/L [facility] Potassium 3.6 3.4 - 5.3 SIM[place] mmol/L [facility] Chloride 94 94 - 109 [place] mmol/L [facility] Carbon Dioxide 23 20 - 32 SIM[place] mmol/L [facility] Anion Gap 15 (H) 3 - 14 [place] mmol/L [facility] Glucose 153 (H) 70 - 99 SIMON mg/dL [facility] Urea Nitrogen 96 (H) 7 - 30 SIMON mg/dL [facility] Creatinine 14.00 (H) 0.66 - [facility] 1.25 mg/dL [facility] GFR Estimate 4 (L) >60 [place] mL/min/1.[address] Comment: Non GFR Calc GFR Estimate If Black 5 (L) >60 mL/min/1.7m2 F [facility] Comment: GFR Calc Calcium 8.4 (L) 8.5 - 10.1 mg/dL [facility] Phosphorus 2.3 (L) 2.5 - 4.5 mg/dL [facility] Albumin 3.3 (L) 3.4 - 5.0 g/dL [facility] Specimen Anatomical Collection Method Collection Time Receive d Time (Source) Location / / Volume Laterality 08/09/2015 12:50 08/09/2015 1:34 PM CDT PM CDT Janice Gaspar MD LAB - BLOOD ORDERABLES Performing Organization Address City/State/ZIP Code Phon e Number [facility] [address] [place] [address] [phone] [facility] [address] [place] [address], [place] SA [phone] (ABNORMAL) Platelet count (08/09/2015 12:50 PM CDT) P athologist Signature Platelet Count 99 (L) 150 - 450 [place] [id number] [facility] Specimen Anatomical Collection Method Collection Time Receive d Time (Source) Location / / Volume Laterality Blood specimen 08/09/2015 12:50 5 1:34 (specimen) PM CDT PM CDT Janice Gaspar MD LAB - BLOOD ORDERABLES Performing Organization Address City/State/ZIP Code Phon e Number [facility] [address] [place] [address] [phone] [facility] [address] [place] [address], [place] SA [phone] (ABNORMAL) Procalcitonin (08/09/2015 12:50 PM CDT) Analysis Performed At Patho logist Time Signature Procalcitonin 32.46 (HH) ng/ml [facility] Comment: >/= 10.00 ng/ml ?? Very high likelihood of severe sepsis or septic shock. Recommendation: Strongly recommend init iating or continuing antibiotics. Evaluate culture results and clinical f eatures to target antibacterial therapy. Obtain blood cultures and other relevan t cultures if not done.Repeat PCT in 2 days to guide antibiotic de-escalation. Consider de-escalating antibiotics when PCT concentration is <80% of peak or ab s PCT <1. Critical Value called to and read back by ESME MCKEON ON 66 AT 1432 Specimen Anatomical Collection Method Collection Time Receive d Time (Source) Location / / Volume Laterality Blood specimen 08/09/2015 12:50 5 1:34 (specimen) PM CDT PM CDT Janice Gaspar MD LAB - BLOOD ORDERABLES Performing Organization Address City/State/ZIP Code Phon e Number [facility] [address] [phone] [facility] [address] [address], U [phone] documented in this encounter Visit Diagnoses Diagnosis Bacteremia - Primary Fever Fever, unspecified Problem with dialysis access (H) documented in this encounter Administered Medications Inactive Administered Medications - up to 3 most recent administrations Medication Order MAR Action Action Date Dose Rate Site 0.9% sodium chloride BOLUS New Bag 08/10/2015 9:15 AM WOOD FINISHER 250 mLs Hemodialysis Machine, 250 mL, ONCE, On 08/10/15 at 0800, For 1 dose, For Dialyzer Prime. (In Dialyzer), Dialysis acetaminophen (TYLENOL) tablet 650 mg Given 08/17/2015 2:30 AM WOOD FINISHER 650 mg 650 mg, Oral, EVERY 4 HOURS PRN, mild pain, Starting on 08/09/15 at 1242, Alternate ibuprofen (if ordered) with acetaminophen. Not to exceed 4 grams/day. Maximum acetaminophen dose from all sources = 75 mg/kg/day not to exceed 4 grams/day. Given 08/16/2015 2:32 AM WOOD FINISHER 650 mg Given 08/12/2015 8:05 PM WOOD FINISHER 650 mg B ybqiaum-M-tyucr acid (NEPHROCAPS) Given 08/17/2015 8:13 AM WOOD FINISHER 1 capsule capsule 1 mg 1 mg (1 capsule), Oral, DAILY, First dose on 08/10/15 at 0900 Given 08/16/2015 7:54 AM WOOD FINISHER 1 mg Given 08/15/2015 8:01 AM WOOD FINISHER 1 mg bisacodyl (DULCOLAX) EC tablet 10 mg Given 08/17/2015 8:10 AM WOOD FINISHER 10 mg 10 mg, Oral, FOUR TIMES WEEKLY (Once per day on Sun Tue), First dose on Tue08/11/15 at 0800, DO NOT CRUSH. Given 08/15/2015 7:54 AM WOOD FINISHER 10 mg Given 08/11/2015 8:27 AM WOOD FINISHER 10 mg calcium acetate (PHOSLO) capsule 1,334 m g Given 08/17/2015 11:08 AM WOOD FINISHER 1,334 mg 1,334 mg, Oral, 3 TIMES DAILY WITH MEALS, First dose on Tue08/10/15 at 0900, Best if given with meals. Take with meals. Given 08/17/2015 8:17 AM WOOD FINISHER 1,334 mg Given 08/16/2015 4:25 PM WOOD FINISHER 1,334 mg ceFAZolin (ANCEF) intermittent infusion 2 g New Bag 08/14/2015 6:3 1 PM WOOD FINISHER 2 g (pre-mix) Routine, 2 g, Intravenous, USER SPECIFIED (Once per day on Tue), First dose on Tue08/12/15 at 1800, Give post dialysis on Tuesday and , Indications: Bacteremia, Sepsis New Bag 08/12/2015 5:47 PM WOOD FINISHER 2 g ceFAZolin (ANCEF) intermittent infusion 3 g Given 08/16/2015 6:5 5 PM WOOD FINISHER 3 g (pre-mix) Routine, 3 g, Intravenous, USER SPECIFIED (Once per day on Tue), First dose on Tue08/16/15 at 1800, Give post dialysis on Saturdays, Indications: Sepsis cholecalciferol (vitamin D) tablet 2,000 Given 015 8:10 AM WOOD FINISHER 2,000 Units Units 2,000 Units, Oral, DAILY, First dose on Tue08/10/15 at 0900 Given 08/16/2015 7:54 AM WOOD FINISHER 2,000 Units Given 08/15/2015 8:01 AM WOOD FINISHER 2,000 Units epoetin mauricio (EPOGEN,PROCRIT) 4000 UNIT/ ML injection Starting on Tue08/10/15 at 1142, For 1 d Shen kinsey Julie: margaret override epoetin mauricio (EPOGEN,PROCRIT) 7,000 Given 08/12/2015 12:11 PM CS T 7,000 Units Units injection 7,000 Units, Intravenous, SEE ADMIN INSTRUCTIONS, Starting on Tue08/12/15 at 0706, Given during each dialysis (per request) 7000 units = 3000 unit vial + 4000 unit vial, Dialysis, Hemoglobin reviewed? Provider has reviewed/ordered hemoglobin within the required timeline epoetin mauricio (EPOGEN,PROCRIT) injection Given 08/10/20 15 11:52 AM WOOD FINISHER 4,000 Units 4,000 Units 4,000 Units, Intravenous, SEE ADMIN INSTRUCTIONS, Starting on [place] 08/10/15 at 0757, Given during each dialysis (per request), Dialysis, Hemoglobin reviewed? Provider has reviewed/ordered hemoglobin within the required timeline epoetin mauricio (EPOGEN,PROCRIT) injection Given 08/16/20 2:52 PM WOOD FINISHER 6,000 Units 6,000 Units 6,000 Units, Intravenous, SEE ADMIN INSTRUCTIONS, Starting on 08/16/15 at 0715, Given during each dialysis (per request), Dialysis, Hemoglobin reviewed? Provider has reviewed/ordered hemoglobin within the required timeline fentaNYL (SUBLIMAZE) injection 25-50 mcg Given 08/14/2015 10:53 AM WOOD FINISHER 25 mcg 25-50 mcg, Intravenous, EVERY 5 MIN PRN, severe pain (7-10), If inadequate response may repeat 25 mcg IV slowly Q 5 min PRN severe pain, Administer over 2 Minutes, Starting on [place] 08/14/15 at 1043, Doses can be exceeded under direct oversight of patient by physician., IR Intra-procedure Given 08/14/2015 10:46 AM WOOD FINISHER 25 mcg heparin (porcine) injection 500 Units Given 08/10/2015 9:16 AM WOOD FINISHER 500 Units 500 Units, Hemodialysis Machine, ONCE IN DIALYSIS/CRRT, On [place] 08/10/15 at 0800, For 1 dose, LOADING DOSE Administer loading dose prior to heparin infusion. PRE DIALYSIS RUN Dialysis, Dialysis heparin 10,000 units/10 mL New Bag 08/10/2015 9:16 AM WOOD FINISHER 500 Units/hr 0.5 mL/hr drip (DIALYSIS USE) 500 Units/hr (0.5 mL/hr), Hemodialysis Machine, CONTINUOUS, Starting on [place] 08/10/15 at 0800, DURING DIALYSIS TREATMENT Stop heparin 60 minutes before end of treatment., Dialysis heparin 100 UNIT/ML injection Given by Other 08/14/2015 11:10 AM WOOD FINISHER 500 Units 500 Units 500 Units, Intracatheter, ONCE, On [place] 08/14/15 at 1115, For 1 dose, IR Intra-procedure heparin Lock (1000 units/mL High Given 08/15/2015 5:05 AM WOOD FINISHER 1, 000 Units concentration) 1,000 Units 1,000 Units (1 mL), Intracatheter, ONCE, On Tue08/15/15 at 0500, For 1 dose, Line lock For tunneled and non-tunneled dialysis catheter To BLUE lumen, IR Post-procedure heparin Lock (1000 units/mL High Given 08/15/2015 5:04 AM WOOD FINISHER 1, 000 Units concentration) 1,000 Units 1,000 Units (1 mL), Intracatheter, ONCE, On Tue08/15/15 at 0500, For 1 dose, Line lock For tunneled or non-tunneled dialysis catheter To RED lumen, IR Post-procedure heparin Lock (1000 units/mL High Given 08/16/2015 3:21 PM WOOD FINISHER 2, 200 Units concentration) 3,000 Units 3,000 Units (3 mL), Intracatheter, ONCE, On Tue08/14/15 at 1200, For 1 dose, Line lock For tunneled and non-tunneled dialysis catheter To BLUE lumen, IR Post-procedure lisinopril (PRINIVIL,ZESTRIL) tablet 20 mg Given 08/17/2015 8:10 AM WOOD FINISHER 20 mg 20 mg, Oral, FOUR TIMES WEEKLY (Once per day on Tue), First dose on Tue08/11/15 at 0800, Take on Non-dialysis days only Given 08/15/2015 7:55 AM WOOD FINISHER 20 mg Given 08/13/2015 8:04 AM WOOD FINISHER 20 mg metoprolol (LOPRESSOR) tablet 100 mg Given 08/17/2015 8:16 AM WOOD FINISHER 100 mg 100 mg, Oral, FOUR TIMES WEEKLY (Once per day on Tue), First dose on Tue08/11/15 at 0800, For Adults, Hold if HR < 60. Take on Non-dialysis days only Given 08/15/2015 7:55 AM WOOD FINISHER 100 mg Given 08/13/2015 8:04 AM WOOD FINISHER 100 mg midazolam (VERSED) injection 0.5-1 mg Given 08/14/2015 10:53 AM WOOD FINISHER 0.5 mg 0.5-1 mg, Intravenous, Administer over 1 Minutes, EVERY 4 MIN PRN, sedation, If inadequate response may repeat 0.5 mg IV slowly Q 4 minutes PRN sedation until desired response., Starting on [place] 08/14/15 at 1043, Doses can be exceeded under direct oversight of patient by physician., IR Intra-procedure Given 08/14/2015 10:45 AM WOOD FINISHER 0.5 mg phytonadione (AQUA-MEPHYTON) 2 mg in New Bag 08/13/2015 4:07 P M WOOD FINISHER 2 mg 100 mL/hr NaCl 0.9 % 50 mL intermittent infusion 2 mg, Intravenous, Administer over 30 Minutes, at 100 mL/hr, ONCE, On Tue08/13/15 at 1500, For 1 dose piperacillin-tazobactam (ZOSYN) 2.25 g vial New Bag 10/2014 5:15 AM WOOD FINISHER 2.25 g to attach to NS 100 ml bag STAT, 2.25 g, Intravenous, EVERY 6 HOURS, First dose on 08/09/15 at 1700, Direct admit, received dose at outside hospital prior to transfer, Indications: Sepsis New Bag 08/09/2015 11:30 PM CDT 2.25 g Restarted 08/09/2015 7:12 PM CDT 2.25 g simvastatin (ZOCOR) tablet 40 mg Given 08/16/2015 6:42 PM WOOD FINISHER 40 mg 40 mg, Oral, EVERY EVENING, First dose on 08/10/15 at 2000 Given 08/15/2015 8:33 PM WOOD FINISHER 40 mg Given 08/14/2015 7:23 PM WOOD FINISHER 40 mg sodium chloride (PF) 0.9% PF flush 3 mL Given 08/12/2015 1:58 PM WOOD FINISHER 3 mLs 3 mL, Intracatheter, EVERY 1 HOUR PRN, line flush, post meds or blood draw, Starting on 08/09/15 at 1242, for peripheral IV flush post IV meds Given 08/12/2015 1:54 AM WOOD FINISHER 3 mLs Given 08/10/2015 5:59 PM WOOD FINISHER 3 mLs sodium chloride (PF) 0.9% PF flush 3 mL Given 08/15/2015 8:35 PM WOOD FINISHER 3 mLs 3 mL, Intracatheter, EVERY 8 HOURS, First dose on 08/09/15 at 1300, And Q1H PRN, to lock peripheral IV dormant line. Given 08/15/2015 12:30 PM WOOD FINISHER 3 mLs Given 08/15/2015 7:56 AM WOOD FINISHER 3 mLs vancomycin (VANCOCIN) 1500 mg in 0.9% New Bag 08/10/2015 3:[address] 1,500 mg NaCl 250 mL PREMIX Routine, 1,500 mg, Intravenous, ONCE, On 08/10/15 at 1400, For 1 dose, For an adult with peripheral catheter and dose of 2-2.5 g, infuse over 2 hours. IF central catheter, doses below 2 g may be given over 1 hour., Indications: Sepsis warfarin (COUMADIN) tablet 2 mg Given 08/14/2015 6:30 PM WOOD FINISHER 2 mg 2 mg, Oral, ONCE AT 6PM, On [place] 08/14/15 at 1800, For 1 dose warfarin (COUMADIN) tablet 2.5 mg Given 08/09/2015 5:45 PM CDT 2.5 mg 2.5 mg, Oral, ONCE AT 6PM, On 08/09/15 at 1800, For 1 dose warfarin (COUMADIN) tablet 5 mg Given 08/15/2015 5:20 PM WOOD FINISHER 5 mg 5 mg, Oral, ONCE AT 6PM, On 08/15/15 at 1800, For 1 dose warfarin (COUMADIN) tablet 5 mg Given 08/16/2015 6:43 PM WOOD FINISHER 5 mg 5 mg, Oral, ONCE AT 6PM, On 08/16/15 at 1800, For 1 dose documented in this encounter Active and Recently Administered Medications Times are shown in WOOD FINISHER. Scheduled Medication Order 08/15/2015 08/16/2015 08/17/2015 B yenehgo-E-auvjg acid (NEPHROCAPS) capsule 1 mg (CANC ELED) 0801 (Given - Provider: Beatris Fish RN) 0754 (Given - Provider: Mona adam)0831 (Canceled Entry - Provider: Mona Lebron) 0813 (Given - Provider: Mona Lebron) 1 mg (1 capsule), Oral, DAILY, First dose on 08/10/15 at 0900 bisacodyl (DULCOLAX) EC tablet 10 mg (CANCELED) 0754 ( Given - Provider: Beatris Fish RN) 0810 (Given - Provider: Portia Lebron) 10 mg, Oral, FOUR TIMES WEEKLY (Once per day on Sun Tue), First dose on Tue08/11/15 at 0800, DO NOT CRUSH. calcium acetate (PHOSLO) capsule 1,334 mg (CANCELED) 0 801 (Given - Provider: Beatris Fish RN)1230 (Given - Provider: Beatris Fish RN)1720 (Given - Provider: Caitlyn Sherwood RN) 0755 (Given - Provider: Mona Lebron)0831 (Canceled Entry - Provider: Mona Lebron)1157 (Given - Provider: Julienne Wesley, LINDA)1625 (Given - Provider: Chantale Sotelo, LINDA)1800 (Canceled Entry - Provider: Chantale Sotelo, LINDA) 0817 (Given - Provider: Mona Lebron)1108 (Given - Provider: Mona Lebron) 1,334 mg, Oral, 3 TIMES DAILY WITH MEALS , First dose on 08/10/15 at 0900, Best if given with meals. Take with meals. ceFAZolin (ANCEF) intermittent infusion 2 g (pre-mix) 2 g, Intravenous, USER SPECIFIED (Once p er day on Tue), First dose on Tue08/12/15 at 1800, Give post dialysis on Tuesday and , Indications: Bacteremia, Sepsis ceFAZolin (ANCEF) intermittent infusion 3 g (pre-mix) (CANCE LED) 1855 (Given - Provider: Chantale Sotelo, LINDA) 3 g, Intravenous, USER SPECIFIED (Once p er day on Tue), First dose on 08/16/15 at 1800, Give post dialysis on Saturdays, Indications: Sepsis cholecalciferol (vitamin D) tablet 2,000 Units (CANCEL ED) 0801 (Given - Provider: Beatris Fish RN) 0754 (Given - Provider: Mona adam)0831 (Canceled Entry - Provider: Mona Lebron) 0810 (Given - Provider: Mona Lebron) 2,000 Units, Oral, DAILY, First dose on 08/10/15 at 0900 epoetin mauricio (EPOGEN,PROCRIT) injection 6,000 Units (CANCELE D) 1452 (Given - Provider: Julienne Wesley, LINDA) 6,000 Units, Intravenous, SEE ADMIN INST RUCTIONS, Starting 08/16/15 at 0715, Given during each dialysis (per request), Dialysis, Hemoglobin reviewed? Provider has reviewed/ordered hemoglobin within the required timeline heparin Lock (1000 units/mL High concentration) 1,000 Units (COMPLETED) 0505 (Given - Provider: Douglas Cardoza RN - Comment: blue lumen right femoral zelalem) 1,000 Units (1 mL), Intracatheter, ONCE, Tue08/15/15 at 0500, For 1 dose, Line lock For tunneled and non-tunneled dialysis catheter To BLUE lumen, IR Post-procedure heparin Lock (1000 units/mL High concentration) 1,000 Units (COMPLETED) 0504 (Given - Provider: Douglas Cardoza RN - Comment: red lumen zelalem) 1,000 Units (1 mL), Intracatheter, ONCE, Tue08/15/15 at 0500, For 1 dose, Line lock For tunneled or non-tunneled dialysis catheter To RED lumen, IR Post-procedure heparin Lock (1000 units/mL High concentration) 3,000 Units (COMPLETED) 1521 (Given - Provider: Julienne Wesley RN - Comment: 2200 Units instilled in both ports post HD) 3,000 Units (3 mL), Intracatheter, ONCE, Tue08/14/15 at 1200, For 1 dose, Line lock For tunneled and non-tunneled dialysis catheter To BLUE lumen, IR Post-procedure lisinopril (PRINIVIL,ZESTRIL) tablet 20 mg (CANCELED) 0755 (Given - Provider: Beatris Fish RN) 0810 (Given - Provider: Portia Lebron) 20 mg, Oral, FOUR TIMES WEEKLY (Once per day on Sun Tue), First dose on Tue08/11/15 at 0800, Take on Non-dialysis days only metoprolol (LOPRESSOR) tablet 100 mg (CANCELED) 0755 ( Given - Provider: Beatris Fish RN) 0816 (Given - Provider: Portia Lebron) 100 mg, Oral, FOUR TIMES WEEKLY (Once pe r day on Sun Tue), First dose on Tue08/11/15 at 0800, For Adults, Hold if HR < 60. Take on Non-dialysis days only simvastatin (ZOCOR) tablet 40 mg (CANCELED) 2032 (Give n - Provider: Caitlyn Sherwood RN) 1841 (Given - Provider: Chantale lawrence RN)1999 (Canceled Entry - Provider: Chantale Sotelo RN) 40 mg, Oral, EVERY EVENING, First dose on 08/10/15 at 2000 sodium chloride (PF) 0.9% PF flush 3 mL (CANCELED) 075 6 (Given - Provider: Beatris Fish RN)1230 (Given - Provider: Beatris Fish RN)2035 (Given - Provider: Caitlyn Sherwood RN) 0600 (Not Given - Provider: Rachel Flores RN - Reason: Patient sleeping)1458 (Canceled Entry - Provider: Harriett Conklin RN)2100 (Canceled Entry - Provider: Chantale Sotelo RN) 0631 (Not Given - Provider: Suzanna Velasquez RN - Reason: Patient sleeping)1300 (Canceled Entry - Provider: Orders Generic Provider - Comment: Automatically canceled at discontinue of medication order) 3 mL, Intracatheter, EVERY 8 HOURS, Firs t dose on 08/09/15 at 1300, And Q1H PRN, to lock peripheral IV dormant line. warfarin (COUMADIN) tablet 5 mg (COMPLETED) 1720 (Give n - Provider: Caitlyn Sherwood RN) 5 mg, Oral, ONCE AT 6PM, 08/15/15 at 1800, For 1 dose warfarin (COUMADIN) tablet 5 mg (COMPLETED) 1843 (Given - Provider: Chantale Sotelo RN) 5 mg, Oral, ONCE AT 6PM, 08/16/15 at 1800, For 1 dose PRN Medication Order 08/15/2015 08/16/2015 08/17/2015 acetaminophen (TYLENOL) tablet 650 mg (CANCELED) 0232 (Given - Provider: Rachel Flores RN) 0230 (Given - Provider: Suzanna webber RN) 650 mg, Oral, EVERY 4 HOURS PRN, mild pa in, Starting 08/09/15 at 1242, Alternate ibuprofen (if ordered) with acetaminophen. Not to exceed 4 grams/day. Maximum acetaminophen dose from all sources = 75 mg/kg/day not to exceed 4 grams/day. documented in this encounter Care Teams Threader Operator Relationship Specialty Start Date End Date Cornell Butt PCP - General 06/24/11 documented as of this encounter
--- OUTSIDE RECORDS SUMMARY | 2022-09-01 20:18 | XMS_ITS | Encounter Summary ---
:1965 Author Organization [place] Address [address] [place] [address] Care Team Providers Name Role Phone Preet Huff Primary Care Provider Reason for Visit Reason Comments RECHECK L AVF Encounter Details Date Type Department Care Team Description 09/24/2015 Office Visit [facility] Jaxon Saravia ESRD (en d stage [facility] [place] MD disease) on dialysis [address] ) (Primary Dx) [id number] [place] [id number] [place] [id number] Social History Tobacco Use Types Packs/Day Years Used Date Smoking Tobacco: Never Smokeless Tobacco: Never Alcohol Use Standard Drinks/Week Comments No 0 (1 standard drink = 0.6 oz pure alcoho l) Sex Assigned at Date Recorded Not on file documented as of this encounter Last Filed Vital Signs Vital Sign Reading Time Taken Comments Blood Pressure 171/65 09/24/2015 3:34 PM CHEMISTRY QUALITY CONTROL ANALYST Pulse 64 09/24/2015 3:34 PM CHEMISTRY QUALITY CONTROL ANALYST Temperature - - Respiratory Rate - - Oxygen Saturation - - Inhaled Oxygen Concentration - - Weight - - Height - - Body Mass Index - - documented in this encounter Progress Notes Jaxon Saravia MD - 09/24/2015 4:00 PM CST Images from the original note were not included. Herminio Victor And his aunt return to see us in the office today. He has been dialyzing at the [facility] unit using a left groin loop graft. 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 He was placed on intravenous Ancef for a total four weeks following the surgery which she's been getting with the dialysis. He has been using his jugular tunnel catheter we placed the time of the graft infection with no difficulty. Exam: Alert and appropriate. Blood pressure 171/65. Pulse 64. Chest= clear. Well-healed left groin incisions. There are easily palpable dialysis access close to the surface ofthe skin in the left thigh. No evidence of infection or complications. Duplex today reveals a wildly patent left groin access graft. Minimum diameter in the remnant of thePTFE going to the profundus femoral artery is 5.1 mm. The mesenteric vein segment measures between 6and 10.5 mm. A simple seromas noted around the apex of the graft distally of no clinical concern. Impression: Widely patent left groin/proximal thigh access graft. The dialysis unit may start using this tomorrow. We will remove his tunnel catheter when they're confident of the access function. I reviewed the infectious disease notes by Dr. Haro who states that he needed to be on antibiotics for four weeks following the procedure. I cannot tell from the chart whether he is still on these. Jaxon Saravia MD Please route or send letter to: [facility] Dialysis unit HPI ROS Physical Exam ISTRY QUALITY CONTROL ANALYST documented in this encounter Nursing Notes Laureen Horton MA - 09/24/2015 3:35 PM CST Chief Complaint Patient presents with ??? RECHECK L AVF Initial BP 171/65 mmHg Pulse 64 Estimated body mass index is 35.89 kg/(m^2) as calculated from thefollowing: Height as of 07/02/15: 5' 4 (1.626 m). Weight as of 08/09/15: 209 lb 3.5 oz (94.9 kg). BP completed using cuff size: large Face to face nursing time: 10 minutes Laureen Horton MA Ebola Screen Negative ISTRY QUALITY CONTROL ANALYST documented in this encounter Plan of Treatment Not on filedocumented as of this encounter Visit Diagnoses Diagnosis ESRD (end stage renal disease) on dialys is (H) - Primary End stage renal disease documented in this encounter Care Teams Energy Engineer Relationship Specialty Start Date End Date Preet Huff PCP - General 06/24/11 documented as of this encounter
--- OUTSIDE RECORDS SUMMARY | 2022-09-01 20:18 | XMS_ITS | Encounter Summary ---
:1965 Author Organization [place] Address [facility] [place] [address] Care Team Providers Name Role Phone HuffPreet cool Primary Care Provider Reason for Visit Auth/Cert - Closed Specialty Diagnoses / Procedures Referred By Contact Refer red To Contact Dialysis Diagnoses fever Fever Sh Dialysis [address] [phone] Phone: Referral ID Status Reason Start Date Expiration Date Visits Requ ested Visits Authorized [id number] Closed 08/10/2015 08/09/2016 1 1 Encounter Details Date Type Department Care Team Description 08/13/2015 Anesthesia Event M [facility] Graham Vásquez MD [facility] [address] [id number] [place] [facility] Lynne Nash M, FLOWER CUTTER PERSON INVESTIGATOR [address] [address] [address] [phone] Anesthesia Record Procedure Summary Procedure Name Responsible Anesthesia Start Anesthesia Stop Time Anesthesiologist Time LEFT GROIN DIALYSIS Graham Vásquez MD 08/13/15 1739 08/13 2045 ACCESS BLEED, PROCOL REVISION (Left: Arm) Events Date Time Event Comment 08/13/2015 1702 1739 An Start 1739 An Start Data 1739 MD Present 1743 An Induction 1746 An Intubation 1747 AN START SEVO 1802 AN INCISION 1904 MD Present 202 AN END SEVO 2028 Present 2037 AN Extubation 2039 an stop data 2044 An Stop Electronically s igned by Carter Pena on August 13, 2015 8:45 PM Name Total fentanyl 50mcg/mL 125 mcg glycopyrrolate 0.2mg/mL 0.8 mg lidocaine 2% 100 mg midazolam 1mg/mL 2 mg neostigmine 1mg/mL 4 mg phenylephrine 0.1mg/mL 400 mcg propofol 10mg/mL 200 mg cisatracurium 2mg/mL 10 mg ceFAZolin vial 1gm 2 g sodium chloride 0.9% 500 mL Agents Name O2 N2O Air Exp Sevoflurane O2 Delivery Device Ins Sevoflurane O2 Auxiliary Blood No blood administrations on [...] Monserrat Blake RN Johns on, Lisa D, incident coordinator Vascular Arteriovenous fistula; 08/03/12 1948 by 1120 by Access Right; Thigh Megan Ochoa RN Incision/Surgical Site 08/08/12; 1527; Right; 08/08/12 1527 by 1 11/18/15 1120 by Groin; 09/17/16; 1120 Macie Amin L isa D, Mamaril, RN RN Incision/Surgical Site 08/09/12; 1401; Right; 08/09/12 1401 by 1 11/18/15 1120 by Groin; 09/17/16; 1120 Aleta Taylor, Hans Ritter, RN Incision/Surgical Site 08/09/12; 1403; 08/09/12 1403 [...] Macie Amin L isa D, LINDA Wood RNincident coordinator Vascular Arteriovenous graft; 06/20/13 1646 by 06/25 1120 by Access Left Megan Ochoa RN Venous Sheath 06/28/13; 1550; 6 Fr; 06/28/13 1550 by 09/17/16 1120 by Other (Comment) (right Hans Pérez, Megan Jolley, fistula); Right; F RN Gina; 09/17/16; 1120 Arterial Sheath 06/28/13; 1600; 6 Fr; 06/28/13 1600 by 09/17/16 1120 by Other (Comment) (right Hans Pérez, Megan Jolley, thigh fistula); Right; F RN Gina; 09/17/16; 1120 Incision/Surgical Site 06/04/14; 1600; Left, 06/04/14 1600 by 1120 by Upper; Thigh; 09/17/16; Esha Garzon, Megan Mcguire, 1120 RN Negative Pressure Wound 06/07/14; 1446; MD; Leg; 06/07/14 1446 b y 11/21/15 1005 by Therapy Left; 11/21/15; 1005 Sb Davila RN Mokaya, Osmani Hitchcock RN Incision/Surgical Site 07/02/15; 0940; Left; 07/02/15 0940 by 1120 by Groin; 09/17/16; 1120 Don Ramos L isa D, Katherine, RN RN Wound Left, Upper; Yes; 08/11/15 1514 by 09/17/16 1120 by 09/17/16; 1120 Megna Ochoa RN Peripheral IV 08/13/15; 1544; 20 G, 1 08/13/15 1544 by 5 2100 by 10/13 inch; Left; Lower Kriss Montes RN Karel, Lisa M, RN forearm; Basilic vein (medial side of arm); Chlorhexidine; None; Tolerated well RETIRED ETT 08/13/15; 1746; Ease of 08/13/15 1746 by 5 2037 by Intubation: Easy; Airway Carter Pena, Carter Pena, Size: 8; Cuffed; Oral; FLOWER CUTTER PERSON INVESTIGATOR FLOWER CUTTER PERSON INVESTIGATOR Blade Type: Glidescope; Place by: aman correia; Insertion Attempts: 1; End Tidal CO2: Present; Dentition: (edentulous) Peripheral IV 08/13/15; 1820; 18 G; 08/13/15 1820 by 08/14/152001 by Left; Hand; Alcohol; Carter Pena Arndt, Mol ly, RN Tolerated well FLOWER CUTTER PERSON INVESTIGATOR Incision/Surgical Site 08/13/15; 2000; Left; 08/13/152000 by 1121 by Leg; upper thigh x3 and Vicki Choe John son, Lisa D, one I&D site; 09/17/16; RN RN 1121 documented in this encounter Social History Tobacco Use Types Packs/Day Years Used Date Smoking Tobacco: Never Smokeless Tobacco: Never Alcohol Use Standard Drinks/Week Comments No 0 (1 standard drink = 0.6 oz pure alcoho l) Sex Assigned at Date Recorded Not on file documented as of this encounter OR Notes Anesthesia Postprocedure Evaluation - Graham Vásquez MD - 08/13/2015 9:24 PM CST Patient: Herminio Victor CREATE GRAFT ARTERIOVENOUS LOWER EXTREMITY (Left Arm) Additional InformationProcedure(s): LEFT GROIN DIALYSIS ACCESS BLEED, PROCOL REVISION Diagnosis:unknown Diagnosis Additional Information: No value filed. Anesthesia Type: General, RSI, ETT Note: Anesthesia Post Evaluation Patient location during evaluation: PACU Patient participation: Able to fully participate in evaluation Level of consciousness: awake and alert Pain management: adequate Airway patency: patent Anesthetic complications: no Cardiovascular status: acceptable Respiratory status: acceptable Hydration status: acceptable PONV: none Last vitals: Filed Vitals: 08/13/150 08/13/15 2100 08/13/152109 BP: 142/77 148/73 139/68 Pulse: Temp: Resp: 16 14 13 SpO2: 100% 99% Electronically Signed By: Graham Vásquez MD August 13, 2015 9:24 PM PER Anesthesia Preprocedure Evaluation - Graham Vásquez MD - 08/13/2015 5:00 PM CST Procedure: Procedure(s): CREATE FISTULA ARTERIOVENOUS LOWER EXTREMITY Preop diagnosis: 4 PSEUDOANEURYSMS OF LEFT THIGHT PTFE DIALYSIS GRAFT Allergies Allergen Reactions ??? Aspirin [Dihydroxyaluminum Aminoacetate] GI Disturbance GI bleeding Past Medical History Diagnosis Date ??? Hypertension [...] hemodialysis status ??? Hyperlipidaemia Past Surgical History Procedure Laterality Date ??? [...] Start Date End Date Taking? Authorizing Provider LISINOPRIL PO Take 20 mg by mouth as needed Hold on evening before dialysis. Yes Reported, Patient B Complex Vitamins (VITAMIN B COMPLEX PO) Take 100 mg by mouth daily Yes Reported, Patient losartan (COZAAR) 100 MG tablet Take 1 tablet (100 mg) by mouth daily 06/19/14 Yes Rober Saravia MD lactulose (CHRONULAC) 10 GM/15ML solution Take 60 mLs by mouth daily as needed Yes Dummy, Bfp User Metoprolol Tartrate (LOPRESSOR PO) Take 100 mg by mouth BID On Tuesday - Tue - Tue - Tuesday Yes Dummy, Bfp User calcium acetate (PHOSLO) 667 MG CAPS Take 1,334-2,001 mg by mouth 3 times daily (with meals). Take 2to 3 caps tid with meals and 1 tab as needed for snacks per [facility] Yes Reported, Patient b atouagj-F-nluhm acid (NEPHROCAPS) 1 MG capsule Take 1 capsule by mouth At Bedtime. Per [facility] Yes Reported, Patient simvastatin (ZOCOR) 40 MG tablet Take 40 mg by mouth At Bedtime. per [facility] Yes Reported, Patient minoxidil (LONITEN) 2.5 MG tablet Take 2 tablets (5 mg) by mouth 2 times daily 06/19/14 Rober Saravia MD HYDROcodone-acetaminophen (NORCO) 5-325 MG per tablet Take 1 tablet by mouth every 6 hours as neededfor moderate to severe pain 05/08/14 Rand Segovia MD bisacodyl (DULCOLAX) 5 MG EC tablet Take 10 mg by mouth daily Give after dialysis on Dialysis days Dummy, Bfp User Cholecalciferol (VITAMIN D3 PO) Take 1,000 Units by mouth daily Dummy, Bfp User warfarin (COUMADIN) 5 MG tablet Take 0.5 tablets by mouth daily. 08/10/12 Alejandro Emerson MD Current Facility-Administered Medications Ordered in [facility] Medication Dose Route Frequency Last Rate Last Dose ??? HOLD MEDICATION Does not apply HOLD ??? [Auto Hold] warfarin-No DOSE today 1 each Does not apply no dose today (warfarin) ??? sodium chloride (PF) 0.9% PF flush 3 mL 3 mL Intravenous Q1H PRN ??? 0.9% sodium chloride infusion Intravenous Continuous ??? [Auto Hold] ceFAZolin (ANCEF) intermittent infusion 2 g (pre-mix) 2 g Intravenous Once per day on Tue 2 g at 08/12/15 1747 ??? [Auto Hold] ceFAZolin (ANCEF) intermittent infusion 3 g (pre-mix) 3 g Intravenous Once per day on Sat ??? [Auto Hold] B vxzvrgt-U-qnlcy acid (NEPHROCAPS) capsule 1 mg 1 capsule Oral Daily 1 mg at 08/13/15 0803 ??? [Auto Hold] calcium acetate (PHOSLO) capsule 1,334 mg 1,334 mg Oral TID w/meals 1,334 mg at 08/13/15 1159 ??? [Auto Hold] bisacodyl (DULCOLAX) EC tablet 10 mg 10 mg Oral Once per day on Tue 10 mg at 08/11/15 0827 ??? [Auto Hold] calcium acetate (PHOSLO) capsule 667 mg 667 mg Oral With Snacks or Supplements ??? [Auto Hold] cholecalciferol (vitamin D) tablet 2,000 Units 2,000 Units Oral Daily 2,000 Units at110/13/14 0803 ??? [Auto Hold] lisinopril (PRINIVIL,ZESTRIL) tablet 20 mg 20 mg Oral Once per day on Sun Tue 20 mg at 08/13/15 0804 ??? [Auto Hold] metoprolol (LOPRESSOR) tablet 100 mg 100 mg Oral Once per day on Tue 100mg at 08/13/15 0804 ??? [Auto Hold] simvastatin (ZOCOR) tablet 40 mg 40 mg Oral QPM 40 mg at 08/12/152001 ??? [Auto Hold] Lidocaine 1 % injection 1 mL 1 mL Other Q1H PRN ??? [Auto Hold] lidocaine (LMX4) 4% topical cream Topical Q1H PRN ??? [Auto Hold] sodium chloride (PF) 0.9% PF flush 3 mL 3 mL Intracatheter Q1H PRN 3 mL at 08/12/15 1358 ??? [Auto Hold] sodium chloride (PF) 0.9% PF flush 3 mL 3 mL Intracatheter Q8H 3 mL at 08/13/15 1207 ??? [Auto Hold] acetaminophen (TYLENOL) tablet 650 mg 650 mg Oral Q4H PRN 650 mg at 08/12/15 2005 ??? [Auto Hold] acetaminophen (TYLENOL) suppository 650 mg 650 mg Rectal Q4H PRN ??? [Auto Hold] naloxone (NARCAN) injection 0.1-0.4 mg 0.1-0.4 mg Intravenous Q2 Min PRN ??? No Medication Sleep Aids for this Patient Does not apply Continuous PRN ??? [Auto Hold] bisacodyl (DULCOLAX) EC tablet 5-15 mg 5-15 mg Oral Daily PRN ??? [Auto Hold] polyethylene glycol (MIRALAX/GLYCOLAX) packet 17 g 17 g Oral Daily PRN ??? [Auto Hold] bisacodyl (DULCOLAX) suppository 10 mg 10 mg Rectal Daily PRN ??? [Auto Hold] ondansetron (ZOFRAN-ODT) disintegrating tablet 4 mg 4 mg Oral Q6H PRN Or ??? [Auto Hold] ondansetron (ZOFRAN) injection 4 mg 4 mg Intravenous Q6H PRN ??? [Auto Hold] prochlorperazine (COMPAZINE) injection 5-10 mg 5-10 mg Intravenous Q6H PRN Or ??? [Auto Hold] prochlorperazine (COMPAZINE) tablet 5-10 mg 5-10 mg Oral Q6H PRN Or ??? [Auto Hold] prochlorperazine (COMPAZINE) suppository 25 mg 25 mg Rectal Q12H PRN ??? Warfarin Therapy Reminder (Check START DATE - warfarin may be starting in the FUTURE) 1 each Does not apply Continuous PRN No current [facility]-ordered outpatient prescriptions on file. Wt Readings from Last 1 Encounters: 08/12/15 91.4 kg (201 lb 8 oz) Temp Readings from Last 1 Encounters: 08/13/15 36.3 ??C (97.3 ??F) Temporal BP Readings from Last 6 Encounters: 08/13/15 158/76 07/02/15 153/80 06/26/15 169/73 02/26/15 127/63 08/01/14 110/53 07/04/14 124/53 Pulse Readings from Last 4 Encounters: 08/12/15 86 06/26/15 64 02/26/15 63 08/01/14 66 Resp Readings from Last 1 Encounters: 08/13/15 16 SpO2 Readings from Last 1 Encounters: 08/13/15 100% Recent Labs Lab Test 06/20/14 0808 06/19/14 1009 06/17/14 1855 06/17/14 0731 NA -- -- -- 132* -- 135 POTASSIUM 4.9 4.4 < > 6.3* < > 5.8* CHLORIDE -- -- -- 97 -- 99 CO2 -- -- -- 27 -- 28 ANIONGAP -- -- -- 8 -- 8 GLC -- -- -- 129* -- 82 BUN -- -- -- 62* -- 56* CR -- -- -- 8.78* -- 8.19* JON -- -- -- 8.6 -- 9.1 < > = values in this interval not displayed. Recent Labs Lab Test 07/02/15 0606/20/14 0806/19/14 0720 06/16/14 0730 06/10/14 0713 06/09/14 0740 WBC -- -- -- -- -- -- -- 6.3 6.1 HGB 10.6* 7.7* < > -- < > -- < > 7.3* 8.0* PLT -- -- -- 173 -- 164 < > 105* 112* < > = values in this interval not displayed. Recent Labs Lab Test 07/02/1562606/20/14 0930 INR 1.58* 1.97* RECENT LABS: ECG: ECHO: CXR: Anesthesia Evaluation . Pt has had prior anesthetic. Type: General and MAC No history of anesthetic complications ROS/MED HX ENT/Pulmonary: (+)sleep apnea, doesn't use CPAP , . . Neurologic: Cardiovascular: (+) Dyslipidemia, hypertension . Taking blood thinners : . . . :. . METS/Exercise Tolerance: Hematologic: (+) History of blood clots Anemia, History of Transfusion - Musculoskeletal: Comment: Legally blind GI/Hepatic: Renal/Genitourinary: (+) chronic renal disease type: ESRD Pt requires dialysis type: Hemodialysis Pt has no history of transplant Endo: (+) type II DM Using insulin - not using insulin pump Diabetic complications: nephropathy neuropathyretinopathy, . Psychiatric: Infectious Disease: Malignancy: Other: Physical Exam Normal systems: cardiovascular and pulmonary Airway Mallampati: III TM distance: >3 FB Neck ROM: full Dental (+) upper dentures and lower dentures Cardiovascular Pulmonary Anesthesia Plan ASA Score: 3 . Plan for General, RSI and ETT - with Propofol and Intravenous induction. Maintenance will be Balanced. Anesthetic plan, risks, benefits and alternatives discussed with: patient or financial services sales representative. Routine analgesia and antiemetics . Equipment:Videolaryngoscope History & Physical Review History and physical reviewed and following examination; no interval change. . Anesthesia Plan ASA Score: 3 . Plan for General, RSI and ETT - with Propofol and Intravenous induction. Maintenance will be Balanced. Anesthetic plan, risks, benefits and alternatives discussed with: patient or financial services sales representative. Routine analgesia and antiemetics . Equipment:Videolaryngoscope History & Physical Review History and physical reviewed and following examination; no interval change. PER documented in this encounter Miscellaneous Notes Anesthesia Care Transfer Note - Carter Pena APRN CRNA - 08/13/2015 8:45 PM CST Patient: Herminio Victor CREATE GRAFT ARTERIOVENOUS LOWER EXTREMITY (Left Arm) Additional Information@[email or web address] Diagnosis: unknown Diagnosis Additional Information: No value filed. Anesthesia Type: General, RSI, ETT Note: Airway :Face Mask Patient transferred to:PACU Electronically Signed By: Carter Pena APRN CRNA August 13, 2015 8:45 PM PER documented in this encounter Plan of Treatment Not on filedocumented as of this encounter Visit Diagnoses Not on filedocumented in this encounter Administered Medications Inactive Administered Medications - up to 3 most recent administrations Medication Order MAR Action Action Date Dose Rate Site 0.9% sodium chloride infusion New Bag 08/13/2015 5:39 PM SYRUPER CONTINUOUS PRN, Anesthesia Intra-op, Starting on Tue08/13/15 at 1739, Until Tue08/13/15 at 2044 ceFAZolin (ANCEF) 1 g vial to attach to NS 100 Given 015 5:59 PM SYRUPER 2 g ml bag for ADULT or 50 ml bag for PEDS Routine, PRN, Starting on Tue08/13/15 at 1759, Anesthesia Intra-op cisatracurium (NIMBEX) injection Given 08/13/2015 5:47 PM SYRUPER 10 mg PRN, Starting on Tue08/13/15 at 1747, Anesthesia Intra-op fentaNYL (SUBLIMAZE) injection Given 08/13/2015 7:51 PM SYRUPER 25 mcg PRN, moderate to severe pain, Starting on Tue08/13/15 at 1744, Anesthesia Intra-op Given 08/13/2015 5:44 PM SYRUPER 100 mcg glycopyrrolate (ROBINUL) injection Given 08/13/2015 8:07 PM SYRUPER 0.8 mg PRN, Starting on Tue08/13/15 at 2007, Anesthesia Intra-op lidocaine injection 2% (MDV) Given 08/13/2015 5:44 PM SYRUPER 100 mg PRN, Starting on Tue08/13/15 at 1744, Anesthesia Intra-op midazolam (VERSED) injection Given 08/13/2015 5:39 PM SYRUPER 2 mg PRN, anxiety, Starting on Tue08/13/15 at 1739, Anesthesia Intra-op neostigmine (PROSTIGMINE) injection Given 08/13/2015 8:07 PM SYRUPER 4 mg Intravenous, PRN, Starting on Tue08/13/15 at 2007, Anesthesia Intra-op phenylephrine injection Given 08/13/2015 7:37 PM SYRUPER 100 mcg PRN, Starting on Tue08/13/15 at 1832, Anesthesia Intra-op Given 08/13/2015 7:08 PM SYRUPER 100 mcg Given 08/13/2015 6:59 PM SYRUPER 100 mcg propofol (DIPRIVAN) injection 10 mg/mL v ial Given 08/13/2015 5:44 PM SYRUPER 200 mg PRN, Starting on Tue08/13/15 at 1744, Anesthesia Intra-op documented in this encounter Care Teams Green Building Materials Distributor Relationship Specialty Start Date End Date Preet Huff PCP - General 06/24/11 documented as of this encounter
--- OUTSIDE RECORDS SUMMARY | 2022-09-01 20:19 | XMS_ITS | Encounter Summary ---
:1965 Author Organization [place] Address [address] [facility] [place] [address] Care Team Providers Name Role Phone Preet Huff Primary Care Provider Encounter Details Date Type Department Care Team Description 11/15/2014 Telephone [facility] Jaxon Saravia, Clinic [facility] [address] [phone] [address] [place] [address] [phone] (Wo rk) Social History Tobacco Use Types Packs/Day Years Used Date Smoking Tobacco: Never Smokeless Tobacco: Never Alcohol Use Standard Drinks/Week Comments No 0 (1 standard drink = 0.6 oz pure alcoho l) Sex Assigned at Date Recorded Not on file documented as of this encounter Miscellaneous Notes Telephone Encounter - Radha Blancas - 11/15/2014 11:53 AM CST Heidi called to cancel Herminio's appt with Dr. Saravia for 11/27/14. She mentioned they called last week to talk about an area of the AVF that was concerning. She said that the area is cleared up so they would like to cancel the appointment. I will cancel the appointment and route this encounter to Jovana (Dr. Saravia's nurse who took the call and made and encounter on 11/05/14) and to Dr. Saravia. Radha Read, Cell Lead OMER SUCCESS ADVOCATE documented in this encounter Plan of Treatment Not on filedocumented as of this encounter Visit Diagnoses Not on filedocumented in this encounter Care Teams Speech Clinician Relationship Specialty Start Date End Date Preet Huff PCP - General 06/24/11 documented as of this encounter
--- OUTSIDE RECORDS SUMMARY | 2022-09-01 20:19 | XMS_ITS | Encounter Summary ---
:1965 Author Organization [place] Address [address] [facility] [place] [address] Care Team Providers Name Role Phone Preet Huff Primary Care Provider Reason for Visit Reason Comments RECHECK L thight AVF Encounter Details Date Type Department Care Team Description 02/26/2015 Office Visit [facility] Jaxon Saravia ESRD (en d stage renal [facility] [place] MD disease) on dialysis [address] ) (Primary Dx) [address] [place] [address] [address] [place] [id number] Social History Tobacco Use Types Packs/Day Years Used Date Smoking Tobacco: Never Smokeless Tobacco: Never Alcohol Use Standard Drinks/Week Comments No 0 (1 standard drink = 0.6 oz pure alcoho l) Sex Assigned at Date Recorded Not on file documented as of this encounter Last Filed Vital Signs Vital Sign Reading Time Taken Comments Blood Pressure 127/63 02/26/2015 2:20 PM CDT Pulse 63 02/26/2015 2:20 PM CDT Temperature - - Respiratory Rate - - Oxygen Saturation - - Inhaled Oxygen Concentration - - Weight - - Height - - Body Mass Index - - documented in this encounter Progress Notes Jaxon Saravia MD - 02/26/2015 2:42 PM CDT Images from the original note were not included. Herminio Victor And his mother return to seem the office today. He dialyzes at the [facility]. We've exhausted all of his axis in his upper extremities due to very poor venous outflow. He alsohad a failed loop graft in his right groin. We placed a PTFE loop in the left groin on 06/20/13. He developed a infected pseudoaneurysm on the lateral aspect the graft in May 2014 that we excised andrepaired in treated with local wound care trying to salvage his graft which has been successful. He is having no problems with dialysis per his mother's report. PMH: Medications reviewed and documented in [facility]. He is on chronic Coumadin anticoagulation due to his loop grafts. Nonsmoker. Lives in a supervised environment due to his retardation. Exam: Alert and appropriate. Blood pressure 127/63. Pulse 62 regular. Chest= clear. Strong palpable pulses noted in the left thigh graft. The site on the lateral aspect where we had the infected pseudoaneurysm is healed over very nicely. No distal swelling in his leg. Duplex of the fistula today reveals it is widely patent. Average diameter 6 mm as expected. The siteof the pseudoaneurysm is no longer visible. There is no fluid around the graft which would imply ongoing infection. Venous anastomosis has a higher velocity due to the interface between the PTFE graft and [place] tissue but no evidence of narrowing. Excellent flow was noted throughout. Impression: Well-functioning left thigh PTFE loop graft. No evidence of chronic infection the graft,recurrent pseudoaneurysm, outflow obstruction. Since this is his only available access now left we will see him again in six months for follow-up duplex ultrasound to try to catch any problems earlier that could be developing particularly a stenosis at the venous outflow tract. Please route or send letter to: [facility] HPI ROS Physical Exam documented in this encounter Nursing Notes Laureen Horton - 02/26/2015 2:23 PM CDT Chief Complaint Patient presents with ??? RECHECK L thight AVF Initial BP 127/63 mmHg Pulse 63 Estimated body mass index is 37.52 kg/(m^2) as calculated from thefollowing: Height as of 14: 5' 4 (1.626 m). Weight as of 06/04/14: 218 lb 11.1 oz (99.2 kg). BP completed using cuff size: large Face to face nursing time: 12 minutes Laureen Horton MA Ebola Screen Negative documented in this encounter Miscellaneous Notes Addendum Note - Laureen Horton - 02/27/2015 8:04 AM CDT Addended by: LAUREEN HORTON on: 02/27/2015 08:04 AM Modules accepted: Medications documented in this encounter Plan of Treatment Not on filedocumented as of this encounter Visit Diagnoses Diagnosis ESRD (end stage renal disease) on dialys is (H) - Primary End stage renal disease documented in this encounter Care Teams Leadership Coach Relationship Specialty Start Date End Date Preet Huff PCP - General 06/24/11 documented as of this encounter
--- OUTSIDE RECORDS SUMMARY | 2022-09-01 20:19 | XMS_ITS | Encounter Summary ---
:1965 Author Organization [place] Address [address] [place] [address] Care Team Providers Name Role Phone Preet Huff Primary Care Provider Reason for Visit Auth/Cert - Closed Specialty Diagnoses / Procedures Referred By Contact Refer red To Contact Surgery Diagnoses 4 PSEUDOANYRUSM OF LEFT THIGHT PTFE DIAYLSIS GRAFT6 Sh Periop Services Procedures REVISION FISTULA ARTERIOVENOUS LOWER EXTREMITY [address] [place] [phone] Phone: Referral ID Status Reason Start Date Expiration Date Visits Requ ested Visits Authorized [id number] Closed 1 1 Encounter Details Date Type Department Care Team Description 07/02/2015 Anesthesia Event [facility] Graham Vásquez [facility] Mathieu monaco MD [address] [facility] [address] ANESTHESIOLOGISTS [place] [phone] [phone] [place] [id number] (Wo rk) Anesthesia Record Procedure Summary Procedure Name Responsible Anesthesia Start Anesthesia Stop Time Anesthesiologist Time PROCAL REVISION Graham Vásquez MD 07/02/15 0729 07/02/15 1007 LEFT THIGH PTFE DIALYSIS GRAFT incision of PTFE graft aneursym (Left: Leg) Events Date Time Event Comment 07/02/2015 0716 0729 An Start 0729 Quick Note Patient to OR by cart with APICULTURE TEACHER. Labs checked before hand, patient wi th smooth transfer. PIV started by QUINTON and sites for PI V and NIBP determined in consult with surgeon. 0731 An Start Data 0732 MD Present 0736 An Induction 0740 An LMA 0740 AN START SEVO 0756 AN INCISION 0846 MD Present 0951 AN END SEVO 0954 MD Present 0956 LMA Removed 0959 an stop data 1007 An Stop Electronically s igned by Sherif Rider on July 02 10:07 AM Name Total fentanyl 50mcg/mL 100 mcg lidocaine 2% 100 mg ondansetron 2mg/mL 4 mg propofol 10mg/mL 180 mg ceFAZolin (ANCEF) intermittent infusion 2 g (pre-mix) 2 g HEParin 1000 unit/mL 3 mL sodium chloride 0.9% 300 mL Agents Name O2 Air Exp Sevoflurane Ins Sevoflurane Blood No [...] Monserrat Blake RN Johns on, Lisa D, check totaler Vascular Arteriovenous fistula; 08/03/12 1948 by 1120 by Access Right; Thigh Megan Ochoa, LINDA Incision/Surgical Site 08/08/12; 1527; Right; 08/08/12 1527 by 1 11/18/15 1120 by Groin; 09/17/16; 1120 Macie Amin L isa D, Mamaril RN RN Incision/Surgical Site 08/09/12; 1401; Right; [...] Macie Amin L isa D, LINDA Wood RNcheck totaler Vascular Arteriovenous graft; 06/20/13 1646 by 06/25 1120 by Access Left Megan Ochoa RN Venous Sheath 06/28/13; 1550; 6 Fr; 06/28/13 1550 by 09/17/16 1120 by Other (Comment) (right Hans Pérez RN Johnso n, Lisa D, fistula); Right; F LINDA Fuentes; 09/17/16; 1120 [...] Left; 11/21/15; 1005 Sb Davila RN Mokaya, Wy cliffe O, RN Peripheral IV 07/02/15; 0731; 20 G; 07/02/15 0731 by 07/02/15 1151 by Left; Hand; Alcohol; Sherif Rider Nanc y A, RN Injectable; Anesthetic JUDITH Matthews CRNA mgmt. Retired Non-Surgical 07/02/15; 0740; Easy 07/02/15 0740 by 07/02 0956 by Airway with oral airway; Sherif Rider Dean Intravenous; Easy; 5; JUDITH Matthews CRNA, APRN CRNA laryngeal mask airway; center of mouth; Equal, clear and bilateral; APICULTURE TEACHER; DS; Spontaneous ventilation, Adequate tidal volume, Follows commands, Armature Bander strength adequate, Transported with oxygen, Purposeful movement Incision/Surgical Site 07/02/15; 0940; Left; 07/02/15 0940 by 1120 by Groin; 09/17/16; 1120 Don Ramos L isa D, Katherine, RN RN documented in this encounter Social History Tobacco Use Types Packs/Day Years Used Date Smoking Tobacco: Never Smokeless Tobacco: Never Alcohol Use Standard Drinks/Week Comments No 0 (1 standard drink = 0.6 oz pure alcoho l) Sex Assigned at Date Recorded Not on file documented as of this encounter OR Notes Anesthesia Postprocedure Evaluation - Graham Vásquez MD - 07/02/2015 10:52 AM CDT Patient: Herminio Victor CREATE FISTULA ARTERIOVENOUS LOWER EXTREMITY (Left Leg) Additional InformationProcedure(s): PROCAL REVISION LEFT THIGH PTFE DIALYSIS GRAFT incision of PTFE graft aneursym Diagnosis:4 PSEUDOANEURYSMS OF LEFT THIGHT PTFE DIALYSIS GRAFT Diagnosis Additional Information: No value filed. Anesthesia Type: LMA, General Note: Anesthesia Post Evaluation Patient location during evaluation: PACU Patient participation: Able to fully participate in evaluation Level of consciousness: awake and alert Pain management: adequate Airway patency: patent Anesthetic complications: no Cardiovascular status: acceptable Respiratory status: acceptable Hydration status: acceptable PONV: none Last vitals: Filed Vitals: 07/02/15 1015 07/02/15 1030 07/02/15 1045 BP: 164/80 172/78 175/87 Temp: 36.6 ??C (97.8 ??F) Resp: 12 12 16 SpO2: 100% 100% 100% Electronically Signed By: Graham Vásquez MD July 02, 2015 10:52 AM Anesthesia Preprocedure Evaluation - Graham Vásquez MD - 07/02/2015 6:46 AM CDT Procedure: Procedure(s): CREATE FISTULA ARTERIOVENOUS LOWER EXTREMITY Preop diagnosis: 4 PSEUDOANEURYSMS OF LEFT THIGHT PTFE DIALYSIS GRAFT Allergies Allergen Reactions ??? Aspirin [Dihydroxyaluminum Aminoacetate] GI Disturbance GI bleeding Past Medical History Diagnosis Date ??? Hypertension ??? Anemia ??? Retinopathy ??? Kidney disease ??? Kidney disease ??? Hyperkalemia ??? ESRD (end stage renal disease) dialysis T-TH-Sat ??? Blind ??? DVT (deep [...] cath av dialysis shunt left thigh 05/23 Prior to Admission medications Medication Sig Start [...] snacks per Davita Yes Reported, Patient b brsqahi-C-uusar acid (NEPHROCAPS) 1 MG capsule Take 1 capsule by mouth At Bedtime. Per [place] Yes Reported, Patient simvastatin (ZOCOR) 40 MG tablet Take 40 mg by mouth At Bedtime. per [place] Yes Reported, Patient minoxidil (LONITEN) 2.5 MG [...] Emerson MD Current Facility-Administered Medications Ordered in [facility] Medication Dose Route Frequency Last Rate Last Dose ??? ceFAZolin (ANCEF) intermittent infusion 2 g (pre-mix) 2 g Intravenous Pre-Op/Pre-procedure x 1 dose No current [facility]-ordered outpatient prescriptions on file. Wt Readings from Last 1 Encounters: 07/02/15 90.719 kg (200 lb) Temp Readings from Last 1 Encounters: 07/02/15 36.8 ??C (98.2 ??F) Oral BP Readings from Last 6 Encounters: 07/02/15 149/65 06/26/15 169/73 02/26/15 127/63 08/01/14 110/53 07/04/14 124/53 06/20/14 170/80 Pulse Readings from Last 4 Encounters: 06/26/15 64 02/26/15 63 08/01/14 66 07/04/14 71 Resp Readings from Last 1 Encounters: 07/02/15 16 SpO2 Readings from Last 1 Encounters: 07/02/15 100% Recent Labs Lab Test 06/20/14 0808 [...] not displayed. Recent Labs Lab Test 07/02/15 0627 06/20/14 0808 06/19/14 0720 06/16/14 0730 06/10/14 0713 06/09/14 [...] Hematologic: (+) History of blood clots Anemia, - Musculoskeletal: GI/Hepatic: Renal/Genitourinary: (+) chronic renal disease type: ESRD Pt requires dialysis Pt has no history of transplant Endo: (+) type II DM Using insulin - not using insulin pump Diabetic complications: nephropathy neuropathyretinopathy, . Psychiatric: Infectious Disease: Malignancy: Other: Physical Exam Normal systems: cardiovascular and pulmonary Airway Mallampati: III TM distance: >3 FB Neck ROM: full Dental (+) upper dentures and lower dentures Cardiovascular Pulmonary Anesthesia Plan ASA Score: 2 . Plan for LMA and General - with Propofol and Intravenous induction. Maintenance will be Balanced. Anesthetic plan, risks, benefits and alternatives discussed with: patient or banking representative. Routine analgesia and antiemetics . Doerun LMA History & Physical Review History and physical reviewed and following examination; no interval change. . Anesthesia Plan ASA Score: 2 . Plan for LMA and General - with Propofol and Intravenous induction. Maintenance will be Balanced. Anesthetic plan, risks, benefits and alternatives discussed with: patient or banking representative. Routine analgesia and antiemetics . Doerun LMA History & Physical Review History and physical reviewed and following examination; no interval change. documented in this encounter Miscellaneous Notes Anesthesia Care Transfer Note - Sherif Rider APRN CRNA - 07/02/2015 10:06 AM CDT Patient: Herminio Victor CREATE FISTULA ARTERIOVENOUS LOWER EXTREMITY (Left Leg) Additional [email or web address] Diagnosis: 4 PSEUDOANEURYSMS OF LEFT THIGHT PTFE DIALYSIS GRAFT Diagnosis Additional Information: No value filed. Anesthesia Type: LMA, General Note: Airway :Face Mask Patient transferred to:PACU Comments: To PACU, awake, VSS, SV, O2, Report to RN Electronically Signed By: Sherif Rider APRN CRNA July 02, 2015 10:06 AM documented in this encounter Plan of Treatment Not on filedocumented as of this encounter Visit Diagnoses Not on filedocumented in this encounter Administered Medications Inactive Administered Medications - up to 3 most recent administrations Medication Order MAR Action Action Date Dose Rate Site 0.9% sodium chloride infusion New Bag 07/02/2015 7:31 AM CDT CONTINUOUS PRN, Anesthesia Intra-op, Starting on Tue07/02/15 at 0731, Until Tue07/02/15 at 1007 ceFAZolin (ANCEF) intermittent infusion 2 g Given 07/02/2015 7:2 9 AM CDT 2 g (pre-mix) Routine, 2 g, Intravenous, PRE-OP/PRE-PROCEDURE, Starting on Tue07/02/15 at 0613, For 1 dose, Give first dose within 1 hour PRIOR to incision. If patient weight is greater than or equal to 120 kg change dose to 3 g., Indications: Perioperative Pharmacoprophylaxis, Pre-procedure fentaNYL (SUBLIMAZE) injection Given 07/02/2015 8:15 AM CDT 25 mcg PRN, moderate to severe pain, Starting on Tue07/02/15 at 0739, Anesthesia Intra-op Given 07/02/2015 7:57 AM CDT 25 mcg Given 07/02/2015 7:39 AM CDT 50 mcg heparin (porcine) injection Given 07/02/2015 8:20 AM CDT 3 mLs PRN, line flush, Starting on Tue07/02/15 at 0820, Anesthesia Intra-op lidocaine injection 2% (MDV) Given 07/02/2015 7:39 AM CDT 100 mg PRN, Starting on Tue07/02/15 at 0739, Anesthesia Intra-op ondansetron (ZOFRAN) injection Given 07/02/2015 9:34 AM CDT 4 mg PRN, nausea, vomiting, Administer over 2-5 Minutes, Starting on Tue07/02/15 at 0934, Anesthesia Intra-op propofol (DIPRIVAN) injection 10 mg/mL v ial Given 07/02/2015 7:39 AM CDT 180 mg PRN, Starting on Tue07/02/15 at 0739, Anesthesia Intra-op documented in this encounter Care Teams Advertising Agent Relationship Specialty Start Date End Date Preet Huff PCP - General 06/24/11 documented as of this encounter
--- OUTSIDE RECORDS SUMMARY | 2022-09-01 20:19 | XMS_ITS | Encounter Summary ---
:1965 Author Organization [place] Address [address] [facility] [address] Care Team Providers Name Role Phone Preet Huff Primary Care Provider Encounter Details Date Type Department Care Team Description 02/26/2015 Hospital Encounter [facility] Jaxon Saravia Re nal failure [facility] MD Preet [address] [place] [address] [place] [address] [phone] (Wo rk) Social History Tobacco Use Types [...] x 20mg tablet = 40mg ) b lfziopn-J-hemrq acid Take 1 capsule by 0 03/04/2016 (NEPHROCAPS) 1 MG mouth daily (with capsule dinner) calcium acetate (PHOSLO) Take 1,334 mg by 0 11/19/2015 667 MG CAPS mouth 3 times daily (with meals) simvastatin (ZOCOR) 40 Take 40 mg by mouth 0 12/16/2017 MG tablet every evening B Complex Vitamins Take 100 mg by mouth 0 08/09/2015 (VITAMIN B COMPLEX PO) daily bisacodyl (DULCOLAX) 5 Take 10 mg by mouth 0 12/16/2017 MG EC tablet See Admin Instructions Take on Once Daily on M, W, F, [place] (Non-dialysis days only) HYDROcodone-acetaminophe Take 1 tablet by 15 tablet 0 05/0807/02/2015 n (NORCO) 5-325 MG per mouth every 6 hours tabletIndications: as needed for Clotted renal dialysis moderate to severe arteriovenous graft, pain subsequent encounter lactulose (CHRONULAC) 10 Take 60 mLs by mouth 0 08/09/2015 GM/15ML solution daily as needed losartan (COZAAR) 100 MG Take 1 tablet (100 30 tablet 2 07/201408/09/2015 tabletIndications: mg) by mouth daily Essential hypertension, benign Metoprolol Tartrate Take 200 mg by mouth 0 03/05/2016 (LOPRESSOR PO) 2 times daily In the AM and at Noon. Takes on M, W, F, [place] (Non-dialysis days only) (Takes 2 x 100mg tablet = 200mg) minoxidil (LONITEN) 2.5 Take 2 tablets (5 mg) 60 tablet 3 0 06/19/2014 08/09/2015 MG tabletIndications: by mouth 2 times Essential hypertension, daily benign warfarin (COUMADIN) 5 MG Take 0.5 tablets by 90 tablet 1 12/16/2015 tabletIndications: Renal mouth daily. dialysis device, implant, or graft complication documented as of this encounter Plan of Treatment Not on filedocumented as of this encounter Procedures Procedure Name Priority Date/Time Associated Diagnosis Comme nts US EXTREMITY Routine 02/26/2015 1:56 PM Renal failure Results for this ARTERIAL VENOUS CDT procedure ar e in DIALYSIS ACCESS the results GRAFT section. documented in this encounter Results US Ext Arterial Venous Dialys Acs Graft (02/26/2015 1:56 PM CDT) Anatomical Region Laterality Modality Vascular, Abdomen/Pelvis Ultrasound Specimen (Source) Anatomical Location Collection Method / Collectio n Time Received Time / Laterality Volume Impressions 02/26/2015 3:20 PM CDT IMPRESSION: Patent left thigh loop graft. No evidence of stenosis. PATRICIA OLVERA MD Narrative 02/26/2015 3:20 PM CDT ULTRASOUND EXTREMITY ARTERIOVENOUS DIALYSIS GRAFT ACCESS 02/26/2015 1:56 PM HISTORY: ??49-year-old male with loop di alysis graft in the left thigh. COMPARISON: June 18, 2014. TECHNIQUE: Color Doppler and spectral wa veform analysis performed throughout the loop graft. FINDINGS: The inflow profunda arterial s egment is patent. Velocity is 347/228 cm/sec with turbulent blood flow , though no visible stenosis. Volume of blood flow is 2984 cc/min. The inflow diameter is 4.3 mm, though remaining segments range from 6.3 -6.7 mm. Venous anastomosis is patent with velocity of 549/392 cm/sec. No visible stenoses. Procedure Note Patricia Olvera MD - 02/26/2015 ULTRASOUND EXTREMITY ARTERIOVENOUS DIALY SIS GRAFT ACCESS 02/26/2015 1:56 PM HISTORY: 49-year-old male with loop dial ysis graft in the left thigh. COMPARISON: June 18, 2014. TECHNIQUE: Color Doppler and spectral wa veform analysis performed throughout the loop graft. FINDINGS: The inflow profunda arterial s egment is patent. Velocity is 347/228 cm/sec with turbulent blood flow , though no visible stenosis. Volume of blood flow is 2984 cc/min. The inflow diameter is 4.3 mm, though remaining segments range from 6.3 -6.7 mm. Venous anastomosis is patent with velocity of 549/392 cm/sec. No visible stenoses. IMPRESSION IMPRESSION: Patent left thigh loop graft . No evidence of stenosis. PATRICIA OLVERA MD Jaxon Saravia MD IMG US ORDERABLES documented in this encounter Visit Diagnoses Diagnosis Renal failure Renal failure, unspecified documented in this encounter Care Teams Supervisor Gate Services Relationship Specialty Start Date End Date Preet Huff PCP - General 06/24/11 documented as of this encounter
--- OUTSIDE RECORDS SUMMARY | 2022-09-01 20:19 | XMS_ITS | Encounter Summary ---
:1965 Author Organization [place] Address [address] [facility] [place] [address] Care Team Providers Name Role Phone Preet Huff Primary Care Provider Reason for Visit Reason Onset Date Comments Clinic Care Coordination - Follow-up 11/05/2014 Encounter Details Date Type Department Care Team Description 11/05/2014 Telephone [facility] [place] MD Coordination - [address] [place] [phone] [place] [id number] (Wo rk) Social History Tobacco Use Types Packs/Day Years Used Date Smoking Tobacco: Never Smokeless Tobacco: Never Alcohol Use Standard Drinks/Week Comments No 0 (1 standard drink = 0.6 oz pure alcoho l) Sex Assigned at Date Recorded Not on file documented as of this encounter Miscellaneous Notes Telephone Encounter - Jovana Wilkinson RN - 11/05/2014 5:31 PM CST Chey called to notify us that Herminio has approx quarter size firm area around his Arterial-Venous Fistula incision. He is running well for dialysis but she wanted to give us a heads up that they are currently monitoring this area; Dr. Marcie lockett today and recommended monitoring at this point. Notified Dr. Saravia. Jovana Wilkinson RN [employer] documented in this encounter Plan of Treatment Not on filedocumented as of this encounter Visit Diagnoses Not on filedocumented in this encounter Care Teams Weapons And Tactics Instructor Relationship Specialty Start Date End Date Preet Huff PCP - General 06/24/11 documented as of this encounter
--- OUTSIDE RECORDS SUMMARY | 2022-09-01 20:19 | XMS_ITS | Encounter Summary ---
:1965 Author Organization [place] Address [address] [facility] [place] [address] Care Team Providers Name Role Phone Preet Huff Primary Care Provider Reason for Visit Auth/Cert - Closed Specialty Diagnoses / Procedures Referred By Contact Refer red To Contact Surgery Diagnoses 4 PSEUDOANYRUSM OF LEFT THIGHT PTFE DIAYLSIS GRAFT6 Sh Periop Services Procedures REVISION FISTULA ARTERIOVENOUS LOWER EXTREMITY [address] [place] [address] Phone: Referral ID Status Reason Start Date Expiration Date Visits Requ ested Visits Authorized [id number] Closed 1 1 Encounter Details Date Type Department Care Team Description 07/02/2015 Hospital Encounter [facility] Rober Buenrostro eudoaneurysm of AV Ariane Oviedo MD haemodialysis fistula PreOP/Phase II [address] [place] [address] [place] [phone] (Work) [phone] Social History Tobacco Use Types Packs/Day Years Used Date Smoking Tobacco: Never Smokeless Tobacco: Never Alcohol Use Standard Drinks/Week Comments No 0 (1 standard drink = 0.6 oz pure alcoho l) Sex Assigned at Date Recorded Not on file documented as of this encounter Last Filed Vital Signs Vital Sign [place] Time Taken Comments Blood Pressure 153/80 07/02/2015 11:15 AM CDT Pulse - - Temperature 36.6 ??C (97.8 ??F) 07/02/2015 10:15 AM CDT Respiratory Rate 16 07/02/2015 11:15 AM CDT Oxygen Saturation 97% 07/02/2015 11:15 AM CDT Inhaled Oxygen Concentration - - Weight 90.7 kg (200 lb) 07/02/2015 6:24 AM CDT Height 162.6 cm (5' 4) 07/02/2015 6:24 AM CDT Body Mass Index 34.33 07/02/2015 6:24 AM CDT documented in this encounter Discharge Instructions Discharge InstructionsDuyen Pardo RN - 07/02/2015 10:34 AM CDT Same Day Surgery Discharge Instructions for Sedation and General Anesthesia ?? It's not unusual to feel dizzy, light-headed or faint for up to 24 hours after surgery or while taking pain medication. If you have these symptoms: sit for a few minutes before standing and have someone assist you when you get up to walk or use the bathroom. ?? You should rest and relax for the next 24 hours. You must make arrangements to have an adult staywith you for at least 24 hours after your discharge. Avoid hazardous and strenuous activity. ?? DO NOT DRIVE any vehicle or operate mechanical equipment for 24 hours following the end of your surgery. Even though you may feel normal, your reactions may be affected by the medication you have received. ?? Do not drink alcoholic beverages for 24 hours following surgery. ?? It's not unusual to feel nauseated and/or vomit after receiving anesthesia. If you develop these symptoms, drink clear liquids (apple juice, concepcion sivan, broth, 7-up, etc. ) until you feel better. Slowly progress to your regular diet as you feel able. If your nausea and vomiting persists for 24 hours, please notify your surgeon. ?? All narcotic pain medications, along with inactivity and anesthesia, can cause constipation. Drinking plenty of liquids and increasing fiber intake will help. ?? For any questions of a medical nature, call your surgeon. ?? Do not make important decisions for 24 hours. ?? If you had general anesthesia, you may have a sore throat for a couple of days related to the breathing tube used during surgery. You may use Cepacol lozenges to help with this discomfort. If it worsens or if you develop a fever, contact your surgeon. ?? If you feel your pain is not well managed with the pain medications prescribed by your surgeon, please contact your surgeon's office to let them know so they can address your concerns. documented in this encounter Medications at Time of Discharge Medication Sig Dispensed Refills Start Date End Date Cholecalciferol (VITAMIN Take 2,000 Units by 0 D3 PO) mouth every evening LISINOPRIL PO Take 40 mg by mouth 0 daily (Takes 2 x 20mg tablet = 40mg ) b [id number]-[id number] acid Take 1 capsule by 0 03/04/2016 [...] F, [place] (Non-dialysis days only) HYDROcodone-acetaminophe Take 1-2 tablets by 30 tablet 0 08/09/2015 n (NORCO) 5-325 MG per mouth every 4 hours tabletIndications: as needed for other Pseudoaneurysm of AV (Moderate to Severe haemodialysis fistula Pain) lactulose (CHRONULAC) 10 Take 60 mLs by [...] graft complication documented as of this encounter H&P Notes Dannielle Gr - 07/01/2015 9:19 AM CDT This note is for the purpose of making the H&P performed in the clinic within the last 30 days available in the hospital surgical encounter. Source Note - Rober Buenrostro MD - 06/26/2015 5:03 PM CDT Images from the original note were not included. Julio Cesar Victor And is on to return to see me in the office today. He is on chronic hemodialysisvia a left groin PTFE loop graft placed on 06/19/2013. He required surgical repair of a large pseudoaneurysm off the arterial lateral limb on 05/08/2014 along with wound care will allow the area to heal with reportedly no graft infection. We placed the left groin loop due to no upper extremity access due to central venous stenosis and a failed revised right groin. Since the pseudoaneurysm repair apparently the graft has had normal flows and good dialysis. There is been at least two or three episodes of bleeding from the graft following dialysis. Most recent was about a week ago and his relatives needed to hold pressure over this area for some period of time to stop the bleeding but did not go to theemergency department. He's had no bleeding since that time but comes to have this evaluated further. PMH: Medications include Coumadin, Lopressor, Cozaar, minoxidil, lisinopril. He dialyzes at the [facility] unit. Exam: Alert and appropriate. Very comfortable. Blood pressure 169/73. Pulse 64. Chest= clear. Cardiovascular=RR. A strong pulse and thrill was noted within the left loop PTFE graft. There are three marked areas with pseudoaneurysms with the larger being on the medial venous outflow limb. I cannot tell where The episode of bleeding occurred. It appears that then using the lower portion of the loop graft for access. 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 He has no distal swelling. A fairly good Doppler signals noted in the left popliteal artery with a weaker monophasic left posterior tibial signal at the ankle and a minimal dorsalis pedis signal. Duplex of the fistula reveals it is patent. Adequate inflow is noted via the profundus femoral artery with this arterial limb located laterally. The venous limb is patent with some mild narrowing goinginto a large femoral vein. Minimum diameter is 4.7 mm. A smaller pseudoaneurysm is located laterallymeasuring 1.9 x 1.7 x 1 cm. There are two easily palpable pseudoaneurysms located on the medial venous outflow limb measuring 2.3 x 2.1 x 2.2 cm and 1.5 x 1.5 x 1 cm. Impression: Bleeding problems and left groin PTFE loop. It is unclear whether he bled from the pseudoaneurysms but appears it was at the dialysis access needle sites. I am concerned about the pseudoaneurysms and feel they should be repaired. We found in the past in his situation that these aneurysms were extremely difficult to repair primarily and therefore I would recommend a interposition graft being placed. A Procol mesenteric vein would work very adequately for this problem. We replaced the portion of the venous limb involved with this Procol graft to allow continued access of the rest of the graft since any tunnel catheter would be extremely difficult due to his central venous stenosis implant would have to go into the right groin with the higher risk of infection other complications if we replaced the entire graft. I discussed this with his aunt and she does understand we'll try to schedule this to be performed this coming week. We'll hold his Coumadin for three days. With his MR a general anesthetic would be necessary and we would decide whether he would be observed overnight following the surgery which we have done in the past. Please route or send letter to: Primary Care Provider (PCP) and [facility] dialysis documented in this encounter Nursing Notes Duyen Pardo RN - 07/02/2015 11:18 AM CDT PNDS met, po per I&O sheet. Pt dressed, up in recliner and transported to Phase 2. Duyen Pardo RN - 07/02/2015 10:48 AM CDT Patient has a normal pedal and post-tibial pulse on left foot. Denies numbness or tingling. Duyen Pardo RN - 07/02/2015 10:44 AM CDT Patient eating jose carlos crackers and an apple juice. Tolerated well documented in this encounter Miscellaneous Notes Brief Op Note - Hillary Elias MD - 07/02/2015 9:55 AM CDT [facility] Brief Operative Note Pre-operative diagnosis: 4 PSEUDOANEURYSMS OF LEFT THIGHT PTFE DIALYSIS GRAFT Post-operative diagnosis Same Procedure: Procedure(s): PROCAL REVISION LEFT THIGH PTFE DIALYSIS GRAFT incision of PTFE graft aneursym Surgeon(s): Surgeon(s) and Role: * Rober Buenrostro MD - Primary * Hillary Carroll MD - Resident Assisting Estimated blood loss: 15 mL Specimens: * No specimens in log * Findings: Revision of outflow tract (venous limb) of loop graft fistula in left leg with procal Op Note - Rober Buenrostro MD - 07/02/2015 9:49 AM CDT PREOPERATIVE DIAGNOSIS: 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 PROCEDURES: 1. Excision of pseudoaneurysm/venous PTFE limb. 2. ProCol mesenteric vein venous limb outflow revision. SURGEON: Rober Buenrostro MD LINE O SCRIBE OPERATOR: HILLARY MONAE MD ([place] surgery resident) ANESTHESIA: General. PREOPERATIVE MEDICATIONS: Ancef 2 grams IV. INDICATIONS: Julio Cesar Victor is a 50-year-old patient who is on chronic hemodialysis via left groin 4 x 7 mm PTFE bypass graft. The patient has no other access sites in the upper extremity, has had a failed graft in the right groin. He dialyzes at the [facility] unit. They have had some increasedneedle hole bleeding, was found to have 2 large pseudoaneurysms in the venous limb (medial). A smaller aneurysm is noted in the lateral arterial limb. Due to the size of these aneurysms was felt that this segment needs to be excised and revised. The graft is otherwise widely patent. There is a mild narrowing at the outflow venous limb at 4.8 mm. Venous pressures have been normal on dialysis. He comesto the operating today under informed consent. DESCRIPTION OF PROCEDURE: The patient was brought to operating room, induced under general anesthesia. LMA was placed. A pillow was placed under the knees. He was placed in a frog-legged position. The left groin area was prepped and draped in the usual fashion. A timeout was called and the sites were identified. GRAFT EXPOSURE: We initially made an incision at the 6 o'clock position of the graft just before theaneurysmal dilatation on the medial aspect. Dissection was carried down with the electrocautery. We identified the inflow portion of the PTFE graft 7 mm in diameter that was normal with a strong pulse.This was dissected free to allow placement of a vascular clamp. A second oblique incision was made in the groin and dissection was carried down to identify the outflow portion of the PTFE graft going into the femoral vein. We identified the graft and this was dissected free. We did not dissect it totally to the vein. This was very well incorporated with no evidence of infection. EXCISION VENOUS PTFE PSEUDOANEURYSM GRAFT LIMB: 3000 units of intravenous heparin were given. After 3 minutes, a vascular clamp was applied to the inflow portion of PTFE graft and outflow. We then excised the graft. Both limbs easily irrigated with heparinized saline solution. The venous limb had a mild stenosis but did accept a 5 mm dilator into the femoral vein with excellent back bleeding and easyflow with the heparin. With the aid of electrocautery, we then dissected free under our skin flap toremove this 8 cm segment of the pseudoaneurysm and the graft itself in its entirety. PROCOL REVISION: A ProCol mesenteric 6 mm bioprosthesis graft was selected. This was flushed appropriate. This was left in normal direction of flow. This was then sewn to the arterial PTFE limb at the 6 o'clock position with running 6-0 Prolene suture. A new subcutaneous tunnel was created immediatelyon the skin medial to remove the PTFE limb and the graft was brought through this. An excellent pulse was noted. We then transected the outflow portion of the PTFE graft. The ProCol was trimmed obliquely and end-to-end anastomosis was created with running 6-0 Prolene suture. With release of the vascular clamps, there was excellent pulse within our graft and good hemostasis at the 2 anastomotic sites. The wounds were infiltrated with 0.5% Marcaine for postop analgesia. Subcutaneous tissue was closed in layers with interrupted 3-0 Vicryl suture. Skin was closed with 4-0 Monocryl in a subcuticular fashion. Dermabond adhesive was then placed over the incisions. The patient tolerated the procedure well. Estimated blood loss was 10 mL. COMPLICATIONS: None. Dialysis unit will be able to use the remaining PTFE segment for 4 weeks, at which time they can start using the new ProCol mesenteric vein outflow limb. ROBER BUENROSTRO MD MT: [id number] Name: JULIO CESAR VICTOR MRN: [id number] Account: [id number] : 1965 Procedure Date: 07/02/2015 Document: [id number] cc: [facility] Buenrostro MD documented in this encounter Plan of Treatment Not on filedocumented as of this encounter Procedures Procedure Name Priority Date/Time Associated Diagnosis Comme nts CREATION, 07/02/2015 7:29 4 PSEUDOANEURYSMS OF ARTERIOVENOUS AM CDT LEFT THIGHT PTFE FISTULA, LOWER DIALYSIS GRAFT EXTREMITY INR STAT 07/02/2015 6:27 Results for this AM CDT procedure are i n the results section. HEMOGLOBIN STAT 07/02/2015 6:27 Results for this AM CDT procedure are i n the results section. BASIC METABOLIC PANEL STAT 07/02/2015 6:27 Res ults for this AM CDT procedure are i n the results section. documented in this encounter Results (ABNORMAL) Hemoglobin (07/02/2015 6:27 AM CDT) P athologist Signature Hemoglobin 10.6 (L) 13.3 - 17.7 [place] g/dL [facility] Specimen Anatomical Collection Method Collection Time Receive d Time (Source) Location / / Volume Laterality Blood specimen 07/02/2015 6:27 AM 015 6:32 (specimen) CDT AM CDT Rober Buenrostro MD LAB - BLOOD ORDERABLES Performing Organization Address City/State/ZIP Code Phon e Number M [facility] [address] [place] [address] [phone] [facility] [address] [place] [address], [place] [phone] (ABNORMAL) INR (07/02/2015 6:27 AM CDT) athologist Signature INR 1.58 (H) 0.86 - 1.14 [facility] Specimen Anatomical Collection Method Collection Time Receive d Time (Source) Location / / Volume Laterality Blood specimen 07/02/2015 6:27 AM 015 6:32 (specimen) CDT AM CDT Rober Buenrostro MD LAB - BLOOD ORDERABLES Performing Organization Address City/State/ZIP Code Phon e Number [facility] [address] [place] [address] [phone] [facility] [address] [place] [address], [place] [phone] (ABNORMAL) Basic metabolic panel (07/02/2015 6:27 AM CDT) Analysis Performed At Patho logist Time Signature Sodium 130 (L) 133 - 144 [place] mmol/L [facility] Potassium 4.5 3.4 - 5.3 [place] mmol/L [facility] Chloride 92 (L) 94 - 109 [place] mmol/L [facility] Carbon Dioxide 33 (H) 20 - 32 [place] mmol/L [facility] Anion Gap 5 3 - 14 [place] mmol/L [facility] Glucose 83 70 - 99 [place] mg/dL [facility] Urea Nitrogen 35 (H) 7 - 30 [place] mg/dL [facility] Creatinine 9.78 (H) 0.66 - [place] 1.25 mg/dL [facility] GFR Estimate 6 (L) >60 [place] mL/min/1.[address] Comment: Non GFR Calc GFR Estimate If Black 7 (L) >60 mL/min/1.7m2 F [facility] Comment: GFR Calc Calcium 8.3 (L) 8.5 - 10.1 mg/dL [facility] Specimen Anatomical Collection Method Collection Time Receive d Time (Source) Location / / Volume Laterality Blood specimen 07/02/2015 6:27 AM 015 6:32 (specimen) CDT AM CDT Rober Buenrostro MD LAB - BLOOD ORDERABLES Performing Organization Address City/State/ZIP Code Phon e Number M [facility] [address] [address] [phone] [facility] [address] [address], [facility] [phone] documented in this encounter Visit Diagnoses Diagnosis Pseudoaneurysm of AV haemodialysis fistu la documented in this encounter Active and Recently Administered Medications Times are shown in CDT. Scheduled Medication Order 06/30/2015 07/01/2015 07/02/2015 ceFAZolin (ANCEF) intermittent infusion 2 g (pre-mix) (COMPLETED ) 0613 (Given - Provider: Sherif Rider APRN WRAPPING MACHINE HELPER) 2 g, Intravenous, PRE-OP/PRE-PROCEDURE, Starting Tue07/02/15 at 0613, For 1 dose, Give first dose within 1 hour PRIOR to incision. If patient weight is greater than or equal to 120 kg change dose to 3 g ., Indications: Surgical Prophylaxis, Pre-procedure PRN Medication Order 06/30/2015 07/01/2015 07/02/2015 BUPivacaine (MARCAINE) injection 0.5% PF (CANCELED) 0934 (Given - Provider: Rober Buenrostro MD) PRN, Starting Tue07/02/15 at 0944, Intra-procedure heparin 10,000 units in 500 mL 0.9% NaCl (CANCELED) 0855 (Given - Provider: Rober Buenrostro MD - Comment: 20,000 units heparin w/500ml 0.9% Saline rinse for ProCol graft) PRN, Starting Tue07/02/15 at 0855, Intra-procedure heparin 2,500 units in 250 mL 0.9% NaCl (CANCELED) 0853 (Given - Provider: Rober Buenrostro MD) PRN, Starting Tue07/02/15 at 0853, Intra-procedure documented in this encounter Care Teams Manufacturing Inspector Relationship Specialty Start Date End Date Preet Huff PCP - General 06/24/11 documented as of this encounter
--- OUTSIDE RECORDS SUMMARY | 2022-09-01 20:19 | XMS_ITS | Encounter Summary ---
:1965 Author Organization [place] Address [address] [facility] [place] [address] Care Team Providers Name Role Phone Preet Huff Primary Care Provider Reason for Visit Reason Comments RECHECK AVF left thigh Encounter Details Date Type Department Care Team Description 06/26/2015 Office Visit [facility] Jaxon Saravia ESRD (en d stage renal Vascular Clinic Mk Oviedo MD disease) on dialysis [address] (H ) (Primary Dx) [address] [place] [phone] [place] [id number] Social History Tobacco Use Types Packs/Day Years Used Date Smoking Tobacco: Never Smokeless Tobacco: Never Alcohol Use Standard Drinks/Week Comments No 0 (1 standard drink = 0.6 oz pure alcoho l) Sex Assigned at Date Recorded Not on file documented as of this encounter Last Filed Vital Signs Vital Sign [place] Time Taken Comments Blood Pressure 169/73 06/26/2015 2:41 PM CDT Pulse 64 06/26/2015 2:41 PM CDT Temperature - - Respiratory Rate - - Oxygen Saturation - - Inhaled Oxygen Concentration - - Weight - - Height - - Body Mass Index - - documented in this encounter Progress Notes Jaxon Saravia MD - 06/26/2015 5:03 PM CDT Images from the original note were not included. Herminio Victor And is on to return to [...] Cozaar, minoxidil, lisinopril. He dialyzes at the [facility] unit. Exam: Alert and appropriate. Very comfortable. [...] letter to: Primary Care Provider (PCP) and [facility] dialysis HPI ROS Physical Exam documented in this encounter Nursing Notes Laureen Horton MA - 06/26/2015 2:42 PM CDT Chief Complaint Patient presents with ??? RECHECK AVF left thigh Initial BP 169/73 mmHg Pulse 64 Estimated body mass index is 37.52 kg/(m^2) as calculated from thefollowing: Height as of 06/04/14: 5' 4 (1.626 m). Weight as of 06/04/14: 218 lb 11.1 oz (99.2 kg). BP completed using cuff size: large Face to face nursing time: 10 minutes Laureen Horton MA Ebola Screen Negative documented in this encounter Plan of Treatment Not on filedocumented as of this encounter Visit Diagnoses Diagnosis ESRD (end stage renal disease) on dialys is (H) - Primary End stage renal disease documented in this encounter Care Teams Java Enterprise Architect Relationship Specialty Start Date End Date Preet Huff PCP - General 06/24/11 documented as of this encounter
--- OUTSIDE RECORDS SUMMARY | 2022-09-01 20:19 | XMS_ITS | Encounter Summary ---
:1965 Author Organization [place] Address [address] [facility] [place] [address] Care Team Providers Name Role Phone Preet Huff Primary Care Provider Reason for Visit Reason Onset Date Comments Post-Op - Vascular 07/10/2015 Encounter Details Date Type Department Care Team Description 07/10/2015 Telephone [facility] Jaxon Saravia Post-Op - Vascular Vascular Clinic kM Oviedo MD [address] [place] [phone] [address] [place] [address] (Wo rk) Social History Tobacco Use Types Packs/Day Years Used Date Smoking Tobacco: Never Smokeless Tobacco: Never Alcohol Use Standard Drinks/Week Comments No 0 (1 standard drink = 0.6 oz pure alcoho l) Sex Assigned at Date Recorded Not on file documented as of this encounter Miscellaneous Notes Telephone Encounter - Jovana Wilkinson RN - 07/10/2015 11:49 AM CDT D: Vicky, nurse from [facility] ([phone]) called / LM to report that they accessed Randiyin the old site and he bled for 25 minutes. S/p revision of left groin PTFE dialysis access 07/02/15. A: I attempted to call Vicky back but she was with patient. I spoke with Chey Barba re differentpatient and Chey was also aware of Herminio's case and just heard from Vicky this morning. P: Chey will call Vicky to let her know that they need to wait 4 weeks before using the new ProColmesenteric vein outflow limb - per Dr. Saravia's OP report directive. Jovana Wilkinson, RN CVN documented in this encounter Plan of Treatment Not on filedocumented as of this encounter Visit Diagnoses Not on filedocumented in this encounter Care Teams Roll Examiner Relationship Specialty Start Date End Date Preet Huff PCP - General 06/24/11 documented as of this encounter
--- OUTSIDE RECORDS SUMMARY | 2022-09-01 20:19 | XMS_ITS | Encounter Summary ---
:1965 Author Organization [place] Address [address] [facility] [place] [address] Care Team Providers Name Role Phone Preet Huff Primary Care Provider Encounter Details Date Type Department Care Team Description 07/07/2015 Orders Only [facility] ESRD (en d stage renal V[facility] Clinic Mk Oviedo MD disease) on dialysis [address] (H ) (Primary Dx) [address] [place] [phone] [place] [id number] Social History Tobacco Use Types Packs/Day Years [...] disease documented in this encounter Care Teams Blueprint Reproducer Relationship Specialty Start Date End Date Preet Huff PCP - General 06/24/11 documented as of this encounter
--- OUTSIDE RECORDS SUMMARY | 2022-09-01 20:19 | XMS_ITS | Encounter Summary ---
:1965 Author Organization [place] Address [address] [facility] [place] [address] Care Team Providers Name Role Phone Preet Huff Primary Care Provider Encounter Details Date Type Department Care Team Description 03/17/2015 Orders Only [facility] WongevetteJaxon ESRD (en d stage renal Vascular Clinic Mk Oviedo MD disease) on dialysis [address] (H ) (Primary Dx) [address] [place] [address] [place] [id number] Social History Tobacco Use Types Packs/Day Years Used Date Smoking Tobacco: Never Smokeless Tobacco: Never Alcohol Use Standard Drinks/Week Comments No 0 (1 standard drink = 0.6 oz pure alcoho l) Sex Assigned at Date Recorded Not on file documented as of this encounter Plan of Treatment Not on filedocumented as of this encounter Results US Ext Arterial Venous Dialys Acs Graft (06/26/2015 2:25 PM CDT) Anatomical Region Laterality Modality Vascular, Abdomen/Pelvis Ultrasound Specimen (Source) Anatomical Location Collection Method / Collectio n Time Received Time / Laterality Volume Impressions 06/26/2015 4:41 PM CDT IMPRESSION: 1. Patent left thigh loop graft. No sugg estion of hemodynamically significant stenosis. Blood flow volume is adequate. 2. Three separate pseudoaneurysms, as de scribed above. All three of these pseudoaneurysms are at least parti ally patent. They are also marked on the patient's skin surface. PATRICIA OLVERA MD Narrative 06/26/2015 4:41 PM CDT ULTRASOUND EXTREMITY ARTERIAL VENOUS DIALYSIS ACCESS GRAFT 06/26/2015 2:25 PM HISTORY: 50-year-old male with left thig h PTFE dialysis graft. COMPARISON: February 26, 2015. TECHNIQUE: Color Doppler and spectral wa veform analysis performed throughout the dialysis graft, and adjac ent [place] artery and vein. FINDINGS: Inflow profunda artery is mccauley nt with diameter of 4.7 mm. Arterial anastomosis is patent with elev ated velocity of 487/207 cm/second, previously 347/228 cm/second. Minimal to mild narrowing suggested on ultrasound imaging. Blood f low volume is 1449 mL/minute. Diameter throughout the loop graft range d from 4.5-6.2 mm. Three separate pseudoaneurysms are visible. Th e first is at the arterial limb, measuring 1.9 x 1.7 x 1 cm and fou nd to be patent with a short neck measuring 2.9 mm, and approximately 4 mm in length. A second pseudoaneurysm is noted at the venous li mb measuring 2.3 x 2.1 x 2.2 cm. This is also found to be patent with a relatively short neck, measuring 4.4 mm in diameter and 5 mm in length. Closest to the venous anastomosis is a third pseudoaneurysm me asuring 1.5 x 1.5 x 1 cm. This also was found to be patent with neck di ameter of 3.6 mm and length of 2-3 mm. The three pseudoaneurysms are ma rked on the patient's skin. Procedure Note Patricia Olvera MD - 06/26/2015 ULTRASOUND EXTREMITY ARTERIAL VENOUS NGA LYSIS ACCESS GRAFT 06/26/2015 2:25 PM HISTORY: 50-year-old male with left thig h PTFE dialysis graft. COMPARISON: February 26, 2015. TECHNIQUE: Color Doppler and spectral wa veform analysis performed throughout the dialysis graft, and adjac ent [place] artery and vein. FINDINGS: Inflow profunda artery is mccauley nt with diameter of 4.7 mm. Arterial anastomosis is patent with elev ated velocity of 487/207 cm/second, previously 347/228 cm/second. Minimal to mild narrowing suggested on ultrasound imaging. Blood f low volume is 1449 mL/minute. Diameter throughout the loop graft range d from 4.5-6.2 mm. Three separate pseudoaneurysms are visible. Th e first is at the arterial limb, measuring 1.9 x 1.7 x 1 cm and fou nd to be patent with a short neck measuring 2.9 mm, and approximately 4 mm in length. A second pseudoaneurysm is noted at the venous li mb measuring 2.3 x 2.1 x 2.2 cm. This is also found to be patent with a relatively short neck, measuring 4.4 mm in diameter and 5 mm in length. Closest to the venous anastomosis is a third pseudoaneurysm me asuring 1.5 x 1.5 x 1 cm. This also was found to be patent with neck di ameter of 3.6 mm and length of 2-3 mm. The three pseudoaneurysms are ma rked on the patient's skin. IMPRESSION IMPRESSION: 1. Patent left thigh loop graft. No sugg estion of hemodynamically significant stenosis. Blood flow volume is adequate. 2. Three separate pseudoaneurysms, as de scribed above. All three of these pseudoaneurysms are at least parti ally patent. They are also marked on the patient's skin surface. PATRICIA OLVERA MD Jaxon Saravia MD IMG ORDERABLES documented in this encounter Visit Diagnoses Diagnosis ESRD (end stage renal disease) on dialys is (H) - Primary End stage renal disease ESRD (end stage renal disease) on dialys is (H) End stage renal disease documented in this encounter Care Teams Device Sales Consultant Relationship Specialty Start Date End Date Preet Huff PCP - General 06/24/11 documented as of this encounter
--- OUTSIDE RECORDS SUMMARY | 2022-09-01 20:19 | XMS_ITS | Encounter Summary ---
:1965 Author Organization [place] Address [address] [facility] [place] [address] Care Team Providers Name Role Phone Preet Huff Primary Care Provider Reason for Visit Auth/Cert - Closed Specialty Diagnoses / Procedures Referred By Contact Refer red To Contact Surgery Diagnoses 4 PSEUDOANYRUSM OF LEFT THIGHT PTFE DIAYLSIS GRAFT6 Sh Periop Services Procedures REVISION FISTULA ARTERIOVENOUS LOWER EXTREMITY [address], [address] [place] [address] Phone: Referral ID Status Reason Start Date Expiration Date Visits Requ ested Visits Authorized [id number] Closed 1 1 Encounter Details Date Type Department Care Team Description 07/02/2015 Surgery [facility] Rober Buenrostro R EVISION LEFT [facility] MD Preet THIGH PTFE DIALYSIS Services [address] GRAFT incision of PTFE [address], [address] [place] [address] [place] [address] [phone] Surgery Details Date/Time Status Location OR Service Patient Case Class Case Tr auma Class Type Case? 07/02/15 7:30 Posted OR OR M 40 General Same Day AM Surgery Panel 1 Procedure LRB Anes Op Region Wound Class Commen ts PROCAL REVISION LEFT THIGH Left General Leg I-Clean PROCAL REVISION LEFT PTFE DIALYSIS GRAFT THIGH PTFE DIALYSIS incision of PTFE graft GR AFT incision of PTFE aneursym graft aneursym Surgeon Surgeon Role Service Panel Rober Buenrostro MD Primary General 1 documented in this [...] Sign Reading Time Taken Comments Blood Pressure 149/65 07/02/2015 6:24 AM CDT Pulse - - Temperature 36.8 ??C (98.2 ??F) 07/02/2015 6:24 AM CDT Respiratory Rate 16 07/02/2015 6:24 AM CDT Oxygen Saturation 100% 07/02/2015 6:24 AM CDT Inhaled Oxygen Concentration - - [...] x 20mg tablet = 40mg ) b ulyvfvw-B-nsmry acid Take 1 capsule by 0 03/04/2016 [...] Cozaar, minoxidil, lisinopril. He dialyzes at the [facility] unit. Exam: Alert and appropriate. Very comfortable. [...] letter to: Primary Care Provider (PCP) and [facility] dialysis documented in this encounter Nursing Notes [...] Elias MD - 07/02/2015 9:55 AM CDT [facility] Brief Operative Note Pre-operative diagnosis: 4 [...] limb outflow revision. SURGEON: Rober Buenrostro MD BACKBREAKER: HILLARY MONAE MD ([facility] surgery resident) ANESTHESIA: General. PREOPERATIVE MEDICATIONS: Ancef 2 grams IV. INDICATIONS: Julio Cesar Victor is a 50-year-old patient who is on chronic hemodialysis via left groin 4 x 7 mm PTFE bypass graft. The patient has no other access sites in the upper extremity, has had a failed graft in the right groin. He dialyzes at the [facility] unit. They have had some increasedneedle hole [...] Name: JULIO CESAR VICTOR MRN: [id number] Account: [id number] : 1965 Procedure Date: 07/02/2015 Document: [id number] cc: [facility] Rober Buenrostro MD documented in this encounter Plan [...] Results (ABNORMAL) Hemoglobin (07/02/2015 6:27 AM CDT) athologist Signature Hemoglobin 10.6 (L) 13.3 - 17.7 [place] g/dL [facility] Specimen Anatomical Collection Method Collection Time Receive d Time (Source) Location / / Volume Laterality Blood specimen 07/02/2015 6:27 AM 015 6:32 (specimen) CDT AM CDT Rober Buenrostro MD LAB - BLOOD ORDERABLES Performing Organization Address City/State/ZIP Code Phon e Number [facility] [address] [address] [place] [address] [place] [address], [facility] [phone] (ABNORMAL) INR (07/02/2015 6:27 AM CDT) athologist Signature INR 1.58 (H) 0.86 - 1.14 [facility] Specimen Anatomical Collection Method Collection Time Receive d Time (Source) Location / / Volume Laterality Blood specimen 07/02/2015 6:27 AM 015 6:32 (specimen) CDT AM CDT Rober Buenrostro MD LAB - BLOOD ORDERABLES Performing Organization Address City/State/ZIP Code Phon e Number [facility] [address] [place] [address] [place] [address] [place] [address], [place] [phone] (ABNORMAL) Basic metabolic panel (07/02/2015 6:27 AM CDT) Analysis Performed At Patho logis Time Signature Sodium 130 (L) 133 - 144 [place] mmol/L [facility] Potassium 4.5 3.4 - 5.3 [place] mmol/L [facility] Chloride 92 (L) 94 - 109 [place] mmol/L [facility] Carbon Dioxide 33 (H) 20 - 32 [place] mmol/L [facility] Anion Gap 5 3 - 14 [place] mmol/L [facility] Glucose 83 70 - 99 [place] mg/dL [facility] Urea Nitrogen 35 (H) 7 - 30 [place] mg/dL [facility] Creatinine 9.78 (H) 0.66 - [place] 1.25 mg/dL [facility] GFR Estimate 6 (L) >60 [place] mL/min/1.[address] Comment: Non GFR Calc GFR Estimate If Black 7 (L) >60 mL/min/1.7m2 [facility] Comment: GFR Calc Calcium 8.3 (L) 8.5 - 10.1 mg/dL [facility] Specimen Anatomical Collection Method Collection Time Receive d Time (Source) Location / / Volume Laterality Blood specimen 07/02/2015 6:27 AM 015 6:32 (specimen) CDT AM CDT Rober Buenrostro MD LAB - BLOOD ORDERABLES Performing Organization Address City/State/ZIP Code Phon e Number [facility] [address] [phone] [facility] [address] [address], [place] [phone] documented in this encounter Visit Diagnoses Not on filedocumented in this encounter Administered Medications Inactive Administered Medications - up to 3 most recent administrations Medication Order MAR Action Action Date Dose Rate Site BUPivacaine (MARCAINE) Given 07/02/2015 9:44 AM 22 mLs Operative injection 0.5% PF CDT Site/Surgical S ite PRN, Starting on Tue07/02/15 at 0944, Intra-procedure heparin 10,000 units in Given 07/02/2015 8:55 AM 20,000 Units Other (see 500 mL 0.9% NaCl CDT comments) PRN, Starting on Tue07/02/15 at 0855, Intra-procedure heparin 2,500 units in Given 07/02/2015 8:53 AM 2,500 Units Operative 250 mL 0.9% NaCl CDT Site/Surgical S ite PRN, Starting on Tue07/02/15 at 0853, Intra-procedure documented in this encounter Active and Recently Administered Medications Times are shown in CDT. Scheduled Medication Order 06/30/2015 07/01/2015 07/02/2015 ceFAZolin (ANCEF) intermittent infusion 2 g (pre-mix) (COMPLETED ) 728 (Given - Provider: Sherif Rider, WELDING TESTER DIALYSIS TECH) 2 g, Intravenous, PRE-OP/PRE-PROCEDURE, Starting Tue07/02/15 at 0613, For 1 dose, Give first dose within 1 hour PRIOR to incision. If patient weight is greater than or equal to 120 kg change dose to 3 g ., Indications: Surgical Prophylaxis, Pre-procedure PRN Medication Order 06/30/2015 07/01/2015 07/02/2015 BUPivacaine (MARCAINE) injection 0.5% PF (CANCELED) 0944 (Given - Provider: Rober Buenrostro MD) PRN, [...] Intra-procedure documented in this encounter Care Teams Client Specialist Relationship Specialty Start Date End Date Preet Huff PCP - General 06/24/11 documented as of this encounter
--- OUTSIDE RECORDS SUMMARY | 2022-09-01 20:19 | XMS_ITS | Encounter Summary ---
:1965 Author Organization [place] Address [address] [facility] [address] Care Team Providers Name Role Phone Preet Huff Primary Care Provider Reason for Visit Reason Comments RECHECK l thigh access wound rechec k Encounter Details Date Type Department Care Team Description 07/04/2014 Office Visit [facility] Jaxon Saravia Ulcer of lower limb, Vascular Clinic Mk Oviedo MD left, with fat layer [address] ex posed (H) (Primary [address]x) [place] [phone] [place] [id number] Social History Tobacco Use Types Packs/Day Years Used Date Smoking Tobacco: Never Smokeless Tobacco: Never Alcohol Use Standard Drinks/Week Comments No 0 (1 standard drink = 0.6 oz pure alcoho l) Sex Assigned at Date Recorded Not on file documented as of this encounter Last Filed Vital Signs Vital Sign Reading Time Taken Comments Blood Pressure 124/53 07/04/2014 1:28 PM CDT Pulse 71 07/04/2014 1:28 PM CDT Temperature - - Respiratory Rate - - Oxygen Saturation - - Inhaled Oxygen Concentration - - Weight - - Height - - Body Mass Index - - documented in this encounter Progress Notes Jaxon Saravia MD - 07/04/2014 5:28 PM CDT Herminio Victor And his mother came to see me today. He dialyzes at the [facility] dialysis unit via left thigh PTFE graft. 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 Due to his very limited access possibilities we decided to try to salvage the PTFE graft. He was treated with intravenous antibiotics during his hospitalization along with negative pressure dressings until the wound granulated over the graft. The nurses at our dialysis unit in the hospital had no problems accessing the more medial aspect of the graft during his stay with us. He was discharged to home with his mother and on intravenous Ancef with his dialysis runs and Aquacel Ag dressing changes everyother day. His mother reports of her having no problems with the access. He's had no pain or drainage from the site. Exam: He is at his baseline and appears very comfortable. Blood pressure 124/53. Pulse 71. Chest= clear. We evaluated the left thigh. A strong pulse was noted within the access graft. There is no erythemaor induration. The Tegaderm dressing and Aquacel Ag was removed. The ulceration looks excellent withno exposed graft and granulation tissue almost up to the surface of the wound that now measures 6 cmx 0.3 cm x 0.1 cm. Fibrin and slough were noted over the granulation tissue which was otherwise healthy. Procedure: Informed consent was obtained from his mother. Using a 15 blade scalpel a selective debridement was performed removed the slough and fibrin done a very healthy bleeding granulation tissue throughout with no undermining. Impression: Excellent granulation tissue over the PTFE graft. We will discontinue the Aquacel Ag to the significant improvement we have noticed. I applied bacitracin ointment to the area followed by gauze and a Tegaderm dressing there would be changed every other day by home health care and his mother. I am hopeful that the graft will be salvageable though there is always the risk of ongoing infection with any artificial tissue. I will discuss with Dr. Arellano at what time the Ancef should be discontinued considering his clinical course presently. I will see him back in several weeks. Please route or send letter to: [facility] Dialysis unit and Dr Rell Bonner Nephrology HPI ROS Physical Exam documented in this encounter Nursing Notes Laureen Horton - 07/04/2014 1:29 PM CDT Chief Complaint Patient presents with ??? RECHECK l thigh access wound recheck Initial BP 124/53 Pulse 71 Estimated body mass index is 37.52 kg/(m^2) as calculated from the following: Height as of 06/04/14: 5' 4 (1.626 m). Weight as of 06/04/14: 218 lb 11.1 oz (99.2 kg). BP completed using cuff size: large Face to face nursing time: 15 minutes Laureen Horton MA documented in this encounter Plan of Treatment Not on filedocumented as of this encounter Procedures Procedure Name Priority Date/Time Associated Diagnosis Comme nts HC DEBRIDEMENT WOUND UP Routine 07/04/2014 5:28 PM Ulcer of lo wer limb, TO 20 SQ CM CDT left, with fat layer exposed (H) documented in this encounter Visit Diagnoses Diagnosis Ulcer of lower limb, left, with fat laye r exposed (H) - Primary documented in this encounter Care Teams Poultry Grader Relationship Specialty Start Date End Date Preet Huff PCP - General 06/24/11 documented as of this encounter
--- OUTSIDE RECORDS SUMMARY | 2022-09-01 20:19 | XMS_ITS | Encounter Summary ---
:1965 Author Organization [place] Address [address] [facility] [place] [address] Care Team Providers Name Role Phone Preet Huff Primary Care Provider Reason for Visit Reason Comments RECHECK left thigh dialysis graft Encounter Details Date Type Department Care Team Description 08/01/2014 Office Visit [facility] Jaxon Saravia ESRD (en d stage renal Vascular Clinic Mk Oviedo MD disease) on dialysis [address] (H ) (Primary Dx) [address] [place] [address] [place] [id number] Social History Tobacco Use Types Packs/Day Years Used Date Smoking Tobacco: Never Smokeless Tobacco: Never Alcohol Use Standard Drinks/Week Comments No 0 (1 standard drink = 0.6 oz pure alcoho l) Sex Assigned at Date Recorded Not on file documented as of this encounter Last Filed Vital Signs Vital Sign Reading Time Taken Comments Blood Pressure 110/53 08/01/2014 1:52 PM CDT Pulse 66 08/01/2014 1:52 PM CDT Temperature - - Respiratory Rate - - Oxygen Saturation - - Inhaled Oxygen Concentration - - Weight - - Height - - Body Mass Index - - documented in this encounter Progress Notes Jaxon Saravia MD - 08/01/2014 3:09 PM CDT Herminio Victor and his mother return to see me in the office today. 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 On his last visit the wound is significantly improved and we continued with dressing changes. Over the last several weeks no dressing have been necessary due to continued improvement. The dialysis unit has had no problems using the graft. Exam: Alert and appropriate. Blood pressure 110/53. Pulse 66 regular. Chest= clear. He had dialysis in earlier today via the left graft. We removed the Band-Aids had a small amount ofbleeding from the needle hole that stopped with reapplication of a Band-Aid. The left lateral wound his essentially completely healed over and looked excellent with no evidence of infection or other pro blems. Impression: Essential healing of left lateral infected pseudoaneurysm wound with no evidence of underlying infection. This is more difficult to determine since artificial PTFE grafts are more likely toharbor a low-grade infection with no clinical signs initially. At the present time there is no need for any type of dressing and the leg graft. We plan a six month followup duplex ultrasound of the graft in the office. If his dialysis nurses should notice swelling or other concerns with the graft theywill contact me. I did discuss this with the patient's mother. Please route or send letter to: [facility] dialysis unit HPI ROS Physical Exam documented in this encounter Nursing Notes Laureen Horton - 08/01/2014 1:54 PM CDT Chief Complaint Patient presents with ??? RECHECK left thigh dialysis graft Initial BP 110/53 Pulse 66 Estimated body mass index is 37.52 kg/(m^2) as calculated from the following: Height as of 06/04/14: 5' 4 (1.626 m). Weight as of 06/04/14: 218 lb 11.1 oz (99.2 kg). BP completed using cuff size: large Face to face nursing time: 15 minutes Laureen Horton MA Ebola Screen Negative documented in this encounter Plan of Treatment Not on filedocumented as of this encounter Visit Diagnoses Diagnosis ESRD (end stage renal disease) on dialys is (H) - Primary End stage renal disease documented in this encounter Care Teams Garage Attendant Relationship Specialty Start Date End Date Preet Huff PCP - General 06/24/11 documented as of this encounter
--- OUTSIDE RECORDS SUMMARY | 2022-09-01 20:19 | XMS_ITS | Encounter Summary ---
:1965 Author Organization [place] Address [address] [facility] [place] [address] Care Team Providers Name Role Phone Preet Huff Primary Care Provider Encounter Details Date Type Department Care Team Description 06/26/2015 Hospital Encounter [facility] Jaxon Saravia RD (end stage [facility] MD Preet renal disease) on [address] dialysis (H) [address] [place] [address] [place] [address] [phone] Social History Tobacco Use Types Packs/Day Years [...] x 20mg tablet = 40mg ) b wbucxyi-R-esocl acid Take 1 capsule by 0 03/04/2016 [...] AV (Moderate to Severe haemodialysis fistula Pain) HYDROcodone-acetaminophe Take 1 tablet by 15 tablet [...] Associated Diagnosis Comme nts US EXTREMITY Routine 06/26/2015 2:25 PM ESRD (end stage Result s for this ARTERIAL VENOUS CDT renal disease) on procedu re are in DIALYSIS ACCESS dialysis (H) the results GRAFT section. documented in this [...] throughout the dialysis graft, and adjac ent [place] artery and vein. FINDINGS: Inflow profunda artery [...] throughout the dialysis graft, and adjac ent [place] artery and vein. FINDINGS: Inflow profunda artery [...] disease documented in this encounter Care Teams Corrective Therapy Aide Teacher Relationship Specialty Start Date End Date Preet Huff PCP - General 06/24/11 documented as of this encounter
--- OUTSIDE RECORDS SUMMARY | 2022-09-01 20:19 | XMS_ITS | Encounter Summary ---
:1965 Author Organization [place] Address [facility] [place] [address] Care Team Providers Name Role Phone Cornell Butt Primary Care Provider Reason for Visit Auth/Cert - Closed Specialty Diagnoses / Procedures Referred By Contact Refer red To Contact Dialysis Diagnoses fever Fever Sh Dialysis [address] [place] [phone] Phone: Referral ID Status Reason Start Date Expiration Date Visits Requ ested Visits Authorized [id number] Closed 08/10/2015 08/09/2016 1 1 Encounter Details Date Type Department Care Team Description 08/13/2015 Surgery [facility] Jaxon Buenrostro LEFT LEAH IN DIALYSIS [facility] MD Cornell ACCESS BLEED, PROCOL Services [address] REVISION [address] [place] [address] [place] [address] [phone] Surgery Details Date/Time Status Location OR Service Patient Class Case Case Trauma Class Type Case? 08/13/15 5:10 Posted OR OR 35 General Inpatient PM Panel 1 Procedure LRB Anes Op Region Wound Class Commen ts LEFT GROIN DIALYSIS ACCESS Left General Arm I-Clean LEFT GROIN DIALYSIS BLEED, PROCOL REVISION AC CESS BLEED, PROCOL REVISION Surgeon Surgeon Role Service Panel Jaxon Buenrostro MD Primary General 1 documented in [...] Sign Reading Time Taken Comments Blood Pressure 150/75 08/13/2015 5:30 PM BLACKENER Pulse 86 08/12/2015 3:00 PM BLACKENER Temperature 36.7 ??C (98 ??F) 08/13/2015 5:30 PM BLACKENER Respiratory Rate 18 08/13/2015 5:30 PM BLACKENER Oxygen Saturation 100% 08/13/2015 4:55 PM BLACKENER Inhaled Oxygen Concentration - - Weight 91.4 kg (201 lb 8 oz) 08/12/2015 8:38 AM BLACKENER Height - - Body Mass Index 35.91 07/02/2015 6:24 AM CDT documented in this encounter Discharge Summaries Jose Palomino MD - 08/17/2015 10:00 AM CST [facility] Discharge Summary Julio Cesar Sandhu [...] on hemodialysis T- Secondary hyperparathyroidism Hyponatremia Nephrology followed for inpatient HD Continued on prior to admission dialysis medications and Dialysis/renal diet - [id number] ml fluid restriction; which per [facility] was his baseline diet . Hypertension Remained stable, continued on MACHINING ENGINEER antihypertensive lisinopril, metoprolol. Note he takes these [...] times daily Takes on M, W, F, Elger (Non-dialysis days only) warfarin (COUMADIN) 5 MG tablet Take 0.5 tablets by mouth daily. Qty: 90 tablet, Refills: 1 Associated Diagnoses: Renal dialysis device, implant, or graft complication !! calcium acetate (PHOSLO) 667 MG CAPS Take 1,334 mg by mouth 3 times daily (with meals) b egqmpvt-O-xgbav acid (NEPHROCAPS) 1 MG capsule Take 1 [...] placed and subsequently upsized to a 5 Nigerian dilator. A subcutaneous tunnel was then created along the right thigh to the common femoral access site. A Palindrome 14.5 Nigerian 28 cm tip to cuff dialysis catheter [...] MOYA MD Most Recent Lab Results In [facility] (For Non-[facility] Providers): Most Recent 3 CBC's: Recent Labs Lab Test 08/15/1534408/14/1533908/13/15 1415 08/12/15 0814 WBC -- 6.5 4.7 4.4 HGB -- 7.3* 6.9* 7.7* MCV -- 84 83 81 PLT 138* 120* 131* 128* Most Recent 3 BMP's: Recent Labs Lab Test 08/14/1533908/13/15 0826 08/12/15 0814 NA 131* 131* 127* POTASSIUM 4.5 3.9 4.1 CHLORIDE 96 94 91* CO2 26 27 23 BUN 65* 53* 94* CR 10.20* 8.82* 12.60* ANIONGAP 9 10 13 JON 7.8* 8.0* 8.2* GLC 118* 135* 116* Most Recent 3 Troponin's:No lab results found. Invalid input(s): TROP, TROPONINIES Most Recent 3 INR's: Recent Labs Lab Test 08/17/15 0808/16/15 0913 08/15/15 034 INR 1.90* 1.80* 1.36* Most Recent 2 [...] Assay Range Canceled, Test credited CALLED [facility] 66 AT 0928 Jose Palomino MD Internal Medicine, Hospitalist Pager#; [phone] KENER documented in this encounter Medications at Time of Discharge Medication Sig Dispensed Refills Start Date End Date Cholecalciferol (VITAMIN Take 2,000 Units by 0 D3 PO) mouth every evening LISINOPRIL PO Take 40 mg by mouth 0 daily (Takes 2 x 20mg tablet = 40mg ) b docotxy-Y-pjfei acid Take 1 capsule by 0 03/04/2016 [...] request, but they are available only M-F. Arranged [facility] wheelchair transport at 1400. Updated aunt, Thelma and noted patient has MA but there is never a guarantee that this will be covered. Thelma will be home when patient arrives. Discharge orders have been faxed to the [employer]OVING DEPARTMENT SUPERVIS[employer] Agency, [employer] [facility] at phone [phone] andfax [phone]. A) Patient and his aunt agree to this plan. P) D/C home today with aunt to provide 24 hour care, as she had done previously. KENER Julienne Wesley RN - 08/16/2015 2:47 PM CST Dialysis Run: Pt Arrived to acute rm via bed Time out taken Pt ran [...] all questions answered VSS post run See [facility] for more details Water detection monitor on floor during run Pt dialyzes at [place] TTHSAT Pre Weight 95.5kg Post Weight 91.5 kg POTASSIUM Date Value Ref Range Status 08/14/2015 4.5 3.4 - 5.3 mmol/L Final ] HEMOGLOBIN Date Value Ref Range Status 08/14/2015 7.3* 13.3 - 17.7 g/dL Final ] CREATININE Date Value Ref Range Status 08/14/2015 10.20* 0.66 - 1.25 mg/dL Final ] Leni Wesley RN [facility] KENER Mona Lebron - 08/16/2015 1:02 PM CST Patient is afebrile, BP slightly elevated (158/79), O2 stable on RA. Ambulated once w/SBA. Dressing on left groin removed early in the morning by physician. Incision began oozing in afternoon, clean dressing applied, continue to monitor. Incision on right groin WDL, scant drainage. Pt received dialysis, is hopeful for DC soon. KENER Wojciech Holman MD - 08/16/2015 11:49 AM [...] of dialysis run. Run parameters reviewed with icer air conditioning. BFR adequate at 400. UF to 4 [...] HEPBANG Negative HBSAB 5.0 G Jagdeep Holman [facility] - Nephrology [phone] KENER Candelario, Jose Correa MD - 08/16/2015 11:10 AM CST [facility] Hospitalist Progress Note Date of [...] to admission dialysis medications Dialysis diet - [id number] ml fluid restriction; which per [facility] was his baseline diet Hypertension Stable , continue MACHINING ENGINEER antihypertensive lisinopril, metoprolol. Note he takes these [...] Once per day on Tue ??? B bogvabv-C-nsuxx acid 1 capsule Oral Daily ??? calcium [...] Jose Palomino MD Internal Medicine, Hospitalist Pager#; [phone] Jaxon Sanchez MD - 08/16/2015 8:32 AM CST Vascular [...] eval new left graft. Wm. MD Rani KENER Caitlyn Sherwood RN - 08/15/2015 11:08 PM CST Pt. Wearing CPAP at , applied by RT. Jose Flores MD - 08/15/2015 11:35 AM CST [facility] Hospitalist Progress Note Date of [...] on hemodialysis T-- Secondary hyperparathyroidism Hyponatremia Nephrology following for inpatient HD Continue prior to admission dialysis medications Dialysis diet - [id number] ml fluid restriction; which per [facility] was his baseline diet Hypertension Stable , continue MACHINING ENGINEER antihypertensive lisinopril, metoprolol. Note he takes these [...] Once per day on Tue ??? B cngizuk-G-hmotc acid 1 capsule Oral Daily ??? calcium [...] Jose Palomino MD Internal Medicine, Hospitalist Pager#; [phone] KENER Wojciech Holman MD - 08/15/2015 10:54 AM CST Renal Medicine Orders for cefazolin called to Philippe Arcos ( 2gm TTH and 3 gm S) Plan am dialysis here Presumed outpatient 08/19/15 Recent Labs Lab 08/14/15 0340 NA 131* POTASSIUM 4.5 CHLORIDE 96 CO2 26 ANIONGAP 9 GLC 118* BUN 65* CR 10.20* GFRESTIMATED 5* GFRESTBLACK 7* JON 7.8* Rell Holman [facility] [phone] KENER Tyrel Haro MD - 08/15/2015 10:30 AM CST [facility] Infectious Disease Progress Note Assessment and Plan: [...] Once per day on Tue ??? B sqkaxxr-M-ymynx acid 1 capsule Oral Daily ??? calcium [...] laboratory data reviewed. Recent Labs Lab Test 08/15/15 03408/14/15 0340 08/13/15 1415 08/12/15 0814 WBC -- 6.5 4.7 4.4 HGB -- 7.3* 6.9* 7.7* HCT -- 22.4* 21.9* 23.2* MCV -- 84 83 81 PLT 138* 120* 131* 128* Recent Labs Lab Test 08/14/15 0340 08/13/15 0826 08/12/15 0814 CR 10.20* 8.82* 12.60* No lab results found. KENER Raquel Tanner - 08/15/2015 10:14 AM CST [...] he gets enough food at home. Per Itzel SANCHEZ, ptfollows a 1500 ml fluid restriction at [...] sooner, if nutritional status changes. Raquel Tanner Delivery Department Supervisor KENER Associated attestation - Angelika Patiño RD, LD - 08/15/2015 10:51 AM BLACKENER I have reviewed and agree with the following note. Patient appears to be eating well and ordering adequate amounts of food. Angelika Patiño RDN LD Pager: [phone] Jaxon Buenrostro MD - 08/15/2015 8:49 AM [...] questions or concerns. Rosa Carroll MD - Inspector Automatic Typewriter - [phone] Staff; As above. OK home with tunnneled catheter and antibiotics with dialysis. RTO 3-4 weeks. Jaxon Buenrostro MD KENER Fern Black RN - 08/15/2015 4:00 AM CST Sepsis Protocol: Lactic Acid and Q30 min vitals ordered per sepsis protocol for HR 102-104 and RR 22-24. LA result: 0.8. Pt has productive cough, LS diminished (unable to take deep breaths). New tunneled dialysis cath placed on 08/14/15 has loose drsg. Flying squad paged for drsg mgmt. Will CTM. Layla Kinney RN - 08/14/2015 4:13 PM CST POTASSIUM [...] teaching done and questionsanswered. See flowsheet in [employer] for further details and post assessment. Machine water alarm in place and functioning. HEPATITIS B SURFACE ANTIGEN unknown HEPATITIS B SURFACE ANTIBODY immuneDATE 07/13/2015 CHLORINE AND CHLORAMINES CHECK on WATER SYSTEM EVERY 4 hours. Catheter Access: Aseptic prep done for both on/off. Report received from: Blessing Ann RN Report given to: Beto Elizabeth RN Outpatient Dialysis at [facility] T, , Sa Layla Andrade RN [facility] Wojciech Puentes MD - 08/14/2015 1:25 PM CST Renal [...] of dialysis run. Run parameters reviewed with icer air conditioning. BFR adequate at 400. MWF schedule. Complete [...] 0930 HEPBANG Negative HBSAB 5.0 Wojciech Holman [facility] - Nephrology [phone] Darrian Cisneros MD - 08/14/2015 11:15 AM [...] for procedural details. Provider name: Darrian Moya Electrician Elevator Maintenance(s):None Blessing Meredith RN - 08/14/2015 10:49 AM CST Interventional Radiology Intra-procedural Nursing Note Patient Name: Julio Cesar Sandhu Today's Date: August 14, 2015 Start Time: 1045 End of procedure time: 1111 Procedure: Tunneled Femoral Dialysis Catheter Placement with Dr. Moya Palindrome Precision H Chronic Catheter 14.5 Nigerian x 28 cm Lot [id number]/ Ref [id number] Exp 2017-10-23 Report given to: LINDA Noyola [...] to cart. 1129 - Pt transferred to [facility] via cart. Report given. No bleeding, oozing, or hematoma noted to site. Other Notes: Blessing Ann RN KENER Naya Vazquez - 08/14/2015 10:30 AM CST 08/14/15 1000 Visit Information Visit Made By General Matcher Clerical Assistant (Level 1) Type of Visit Initial Visited Patient [facility] Progress Note [facility] 66 This was visit per LOS. Pt was unavailable (not in his room). [facility] attempts another visit in the pm hours. Naya Vazquez General Matcher Clerical Assistant Jose Flores MD - 08/14/2015 9:58 AM CST [facility] Hospitalist Progress Note Date of [...] on hemodialysis T-- Secondary hyperparathyroidism Hyponatremia Nephrology consulted for inpatient HD Continue prior to admission dialysis medications Dialysis diet - Add 1500 ml fluid restriction; which per [facility] was his baseline diet Hypertension Blood pressure [...] Once per day on Tue ??? B bdvphlt-C-vcujt acid 1 capsule Oral Daily ??? calcium [...] Jose Palomino MD Internal Medicine, Hospitalist Pager#; [phone] KENER Jaxon Buenrostro MD - 08/14/2015 8:13 AM [...] due to his sepsis. Wm. Rani MD KENER Artis, Raúl Crenshaw MD - 08/14/2015 7:39 AM CST [facility] Infectious Disease Progress Note Assessment and Plan: [...] Once per day on Tue ??? B usnphuw-D-kakky acid 1 capsule Oral Daily ??? calcium [...] data reviewed. Recent Labs Lab Test 08/14/15 03408/13/15 1415 08/12/15 0814 WBC 6.5 4.7 4.4 HGB 7.3* 6.9* 7.7* HCT 22.4* 21.9* 23.2* MCV 84 83 81 PLT 120* 131* 128* Recent Labs Lab Test 08/14/15 0340 08/13/15 0826 08/12/15 0814 CR 10.20* 8.82* 12.60* No lab results found. KENER Fern Black RN - 08/14/2015 4:49 AM CST Discontinued soft wrist restraints from pt. Calm and cooperative, A&Ox3 (date). Pt following commands, is not pulling or picking at lines. Pt states he does not remember pulling at lines or pickingat graft site previously. Pts left hand in mitt to avoid accidental scratching of grafts while sleeping. CMS intact. CTM. Enrike Matamoros MD - 08/13/2015 10:16 PM CST Cross cover 2211 Soft restraints ordered for patient trying to pull lines following surgery; patient with h/o mental retardation per nursing; patient not hypoxic Emile Nelson RN - 08/13/2015 3:12 PM CST Received call from lab re: Hgb 6.9. Order already in place for blood transfusion if Hgb <7. Will transfuse and continue to monitor. Janice Mendoza MD - 08/13/2015 2:29 PM CST Hospitalist [...] aunt via phone Janice Gaspar MD Hospitalist [phone] KENER Jaxon Buenrostro MD - 08/13/2015 2:27 PM [...] need to ligate graft. Wm. Rani MD KENER Wojciech Holman MD - 08/13/2015 11:36 AM CST Renal Medicine Chart Check Plan am dialysis Orders entered Recent Labs Lab 08/13/15 0826 NA 131* POTASSIUM 3.9 CHLORIDE 94 CO2 27 ANIONGAP 10 GLC 135* BUN 53* CR 8.82* GFRESTIMATED 6* GFRESTBLACK 8* JON 8.0* Rell Holman [facility] [phone] Shahzad Vega MD - 08/13/2015 9:11 AM [...] follow the wound in the left groin KENER Artis, Raúl Crenshaw MD - 08/13/2015 8:18 AM CST [facility] Infectious Disease Progress Note Assessment and Plan: [...] g Intravenous Once per day on Tue Padmaja ??? [START ON 08/16/2015] ceFAZolin 3 g Intravenous Once per day on Sat ??? B yuycqka-R-ziemv acid 1 capsule Oral Daily ??? calcium [...] 12.60* 10.90* 16.10* No lab results found. KENER Janice Gaspar MD - 08/12/2015 4:30 PM CST [facility] Hospitalist Progress Note Date of [...] this time. End-stage renal disease on hemodialysis T-- Secondary hyperparathyroidism Nephrology consulted for inpatient HD [...] Once per day on Tue ??? B flcpaqj-H-qjrad acid 1 capsule Oral Daily ??? calcium [...] previous visit (from the past 24 hour(s)). Compa Haywood - 08/12/2015 2:43 PM CST SW D) Per protocol, following for discharge planning. Patient is a 50 year old male admitted with a fever. He has end stage renal disease and receives dialysis Tuesday, and Tuesday. His expecteddischarge date is not yet clear. I) Reviewed chart data and noted patient lives with his aunt, Thelma in [place]. She is his POA and caregiver, along with patient's mother, Arianna. Patient gets [employer]OVING DEPARTMENT SUPERVISOR services through [employer]. The contact there is Anya at [phone] and fax [phone]. Spoke with Anya to confirm their c ontinued involvement with patient. She reports patient gets 6 and 1/2 hours of ROVING DEPARTMENT SUPERVISOR coverage per day from Thelma, but she actually provides 24 hour care. Orders should be faxed to them at D/C. Called Thelma. She notes they have used [facility] for RN visits in the past and would want to use them again, if needed. The transport company they use is [employer] at . They need niko contacted to arrange transport at discharge. A) Patient would likely benefit from a return home with his caregiver and continued ROVING DEPARTMENT SUPERVISOR services at discharge. Home RN visits could be arranged if a skilled need is identified. P) Following. KENER Julienne Wesley, RN - 08/12/2015 10:22 AM CST Dialysis [...] all questions answered VSS post run See [facility] for more details Water detection monitor on floor during run Pt dialyzes at [place] Pre Weight 91.4 kg Post Weight 88kg [...] 76 I/O last 3 completed shifts: In: 0 [P.O.:1880] Out: - Physical Exam: Left graft working [...] of dialysis run. Run parameters reviewed with icer air conditioning. Oozing at access site. Adequate BFR. 3 [...] HEPBANG Negative HBSAB 5.0 G Jagdeep Holman [facility] - Nephrology [phone] KENER ArtisRaúl MD - 08/12/2015 7:49 AM CST [facility] Infectious Disease Progress Note Assessment and Plan: [...] Once per day on Tue ??? B lgfdozg-B-qabdt acid 1 capsule Oral Daily ??? calcium [...] 10.90* GFRESTIMATED 5* GFRESTBLACK 6* JON 8.2* GLorena Holman [facility] [phone] Jaxon Sanchez MD - 08/11/2015 12:10 PM CST Subjective: [...] (somewhat resistant to infection). Jaxon Buenrostro MD KENER Janice Gaspar MD - 08/11/2015 10:05 AM CST [facility] Hospitalist Progress Note Date of [...] Intravenous Once per day on Tue ??? warfarin-No DOSE today 1 each Does not apply no dose today (warfarin) ??? B iarkzlq-D-ijrpd acid 1 capsule Oral Daily ??? calcium [...] femoral vein as well. DARRIAN MOYA MD KENER Raúl Ramachandran MD - 08/11/2015 7:41 AM CST [facility] Infectious Disease Progress Note Assessment and Plan: [...] neg at one day. Medications: ??? B okshcjd-B-uufdm acid 1 capsule Oral Daily ??? calcium [...] 16.10* 14.00* 9.78* No lab results found. KENER Cristiana Newton, RN - 08/10/2015 6:41 PM CST VSS. Pt denies any pain. Up with one. Tolerating diet. Continue to monitor KENER Angie Gotti RN - 08/10/2015 10:34 AM [...] checked every 4 hours. Outpatient Dialysis at [facility] KENER Danis Johnston MD - 08/10/2015 9:21 AM CST Assessment [...] The patient has 2/2 blood cultures from [facility] that suggest GPC in clusters and suggestive of bacteremia. On zosyn and vanco. Bld cultures from [facility] are also + for GPC. Hypertension: on lisinopril, metoprolol. Review of Systems: No sx on dialysis. Medications: ??? sodium chloride 0.9% 250-1,000 mL Intravenous Once in dialysis ??? epoetin mauricio (EPOGEN,PROCRIT) inj ESRD 4,000 Units Intravenous See Admin Instructions ??? B evzwzyj-V-apzev acid 1 capsule Oral Daily ??? calcium [...] Warfarin Therapy Reminder Current active medications and MACHINING ENGINEER medications reviewed, see medication list for details. [...] BILITOTAL, BILICONJ, BILIDIRECT, DARLINE in the last 97594 hours. Invalid input(s): BILIRUBININDIRECT Recent Labs Lab [...] imaging. Seen on dialysis. DANIS JOHNSTON MD KENER Janice Gaspar MD - 08/10/2015 8:34 AM CST [facility] Hospitalist Progress Note Date of [...] initially unremarkable for source, blood cultures from [facility] now positive with GPCs - Blood cultures [...] Gaspar Interval History Overnight blood cultures from [place] turned positive with GPC. Patient seen on [...] Hemodialysis Machine Once in dialysis ??? B uvuaowr-T-ydrhs acid 1 capsule Oral Daily ??? calcium [...] previous visit (from the past 24 hour(s)). KENER Rand Ramirez MD - 08/10/2015 12:31 AM CDT Hospitalist X-cover, Called about postive blood culture from [place] which showed GPC. Per Dr. Gaspar's H&P, thepatient had blood cultures drawn here also which are pending and is on vanco and zosyn. Fax from [place] is going to be put on front [...] Warfarin Therapy Reminder Current active medications and MACHINING ENGINEER medications reviewed, see medication list for details. [...] BILITOTAL, BILICONJ, BILIDIRECT, DARLINE in the last 95026 hours. Invalid input(s): BILIRUBININDIRECT Recent Labs Lab [...] rashes or skin changes. He presented to [facility] per his usual schedule and reportedly his temperature was measured at 104 degrees Fahrenheit. Due to this, he was sent to the [place] [facility] for further evaluation. Workup at that time including chest x-ray, LFTs, influenza test were negative for infection. His white blood cell count was within normal limits. A CRP was noted to be elevated at 17.3. Given the unclear source of his infection as well as his need for dialysis transfer to [facility] was requested for further cares. [...] lives with his aunt and mother in [place]. Reportedly, his aunt is his legal power of tin tie machine operator automatic and medical decision maker. FAMILY HISTORY: Maternal [...] to hospitalization. Following allcommands. LABORATORY DATA: Per [facility] records, albumin 4.2, alkaline phosphatase 86, ALT [...] reviewed and discussed informally by me with [facility] radiology staff with no focal infiltrates identified. ASSESSMENT AND PLAN: Julio Cesar Snadhu is a 50-year-old male with past medical history significantfor end-stage renal disease on hemodialysis, hypertension, secondary hyperparathyroidism, obstructive sleep apnea, anemia of chronic disease, type 2 diabetes mellitus with diabetic retinopathy, hyperlipidemia, DVT of upper extremity who is directly admitted from [facility] Emergency Department after presenting there with a fever at his dialysis unit. He is admitted on 08/09/2015 for further workup and treatment of this. Fever Reportedly was 104 Fahrenheit at dialysis. On arrival to [facility] was 102.1. Initial workup at [facility] did not reveal a specific source of [...] neck stiffness or headache to suggest a TEST BAKER infection. He and his aunt deny any recent diarrhea to suggest Clostridium difficile. As he is a dialysis patient with significant health care exposure as well as recent admission at [facility] at the beginning of July, will treat him broadly with vancomycin and piperacillin-tazobactam until further culture has returned. He reportedly had only one single blood culture drawn at [facility]. I have ordered an additional 2 sets on arrival here, although note he has received 1 dose of his antibiotics to this point. I have also ordered a procalcitonin to help stratify him. It appears a urinalysis was ordered at [facility] but either not collected or not yet [...] Presently on Coumadin with INR 3.1 at [facility]. Pharmacy has been consulted for warfarin dosing. [...] Name: JULIO CESAR SANDHU MRN: [id number] Account: [id number] : 1965 Admitted: [id number] Document: [id number] cc: Cornell Butt MD KENER documented in this encounter Consult Notes Raúl Ramachandran MD - 08/10/2015 10:03 AM CST ID consult dictated. Gram pos bacteremia. On Vanco. KENER Raúl Ramachandran MD - 08/10/2015 10:00 AM CST [...] OF PRESENT ILLNESS: This is a 50-year-old -Mosoth[place] male with diabetes mellitus and end-stage renal disease who is on hemodialysis 3 times a week. 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 The day prior to his admission, he was noting increased fatigue and presented to his dialysiswhere temperature was recorded at 104 degrees. He was then sent from dialysis to the [place] [facility]. There, a chest x-ray was unremarkable as were influenza and LFTs. White blood countwas normal. The patient was transferred to [facility]. After blood cultures were obtained, [...] with his aunt and his mother in [place]. FAMILY HISTORY: Positive for colon cancer. REVIEW [...] for this consultation. RAÚL RAMACHANDRAN MD MT: Name: JULIO CESAR SANDHU Account: [id number] : 1965 Consult Date: 08/10/2015 Document: [id number] cc: Janice Gaspar MD KENER Shahzad Osorio MD - 08/10/2015 8:47 AM CSTAssociated Order(s): VASCULAR SURGERY IP CONSULT [facility] History and Physical Vascular Surgery [...] The patient has 2/2 blood cultures from [facility] that suggest GPC in clusters and suggestive [...] to his routine appointment for dialysis in [place], [place] where he was found to have a fever of 104 F. He was transferred to the ER there and blood cultures were performed suggesting 2/2 GPC. The patient was then transferred to [facility] [facility], LAT[facility] for evaluation and treatment. He denies having issues at home prior to his presentation at the dialysis center and says he has not had any pain in his left thigh. The patient otherwise denies other symptoms of systemic illness. He underwent extensive work up in the [place] [facility] and other sources of possible infection [...] ARM ARTERIOVENOUS FISTULA WITH BOVINE PATCH; Surgeon:JAXON BUNEROSTRO; Location: OR ??? Create graft loop arteriovenous lower extremity 05/03/2012 Procedure: CREATE GRAFT LOOP ARTERIOVENOUS LOWER EXTREMITY; RIGHT GROIN LOOP GRAFT WITH CADAVER FEMORAL ARTERY; Surgeon: Jaxon Buenrostro MD; Location: OR ??? Insert catheter venous translumbar 08/08/2012 [...] (VITAMIN D3 PO) 08/08/2015 at Unknown time Coverage Specialist Rn Yes Yes Sig: Take 2,000 Units by mouth daily LISINOPRIL PO 08/08/2015 at Unknown time Coverage Specialist Rn Yes Yes Sig: Take 20 mg by mouth Take on M, W, F, [place] (Non-dialysis days only) Metoprolol Tartrate (LOPRESSOR PO) 08/08/2015 at pm Coverage Specialist Rn Yes Yes Sig: Take 100 mg by mouth 2 times daily Takes on M, W, F, [place] (Non-dialysis days only) b ifcenaf-F-xmwrv acid (NEPHROCAPS) 1 MG capsule 08/08/2015 at Unknown time Coverage Specialist Rn Yes Yes Sig: Take 1 capsule by mouth daily bisacodyl (DULCOLAX) 5 MG EC tablet 08/08/2015 at Unknown time Coverage Specialist Rn Yes Yes Sig: Take 10 mg by mouth Take on M, W, F, [place] (Non-dialysis days only) calcium acetate (PHOSLO) 667 MG CAPS 08/09/2015 at am Coverage Specialist Rn Yes Yes Sig: Take 1,334 mg by mouth 3 times daily (with meals) calcium acetate (PHOSLO) 667 MG CAPS 08/08/2015 at Unknown time Coverage Specialist Rn Yes Yes Sig: Take 667 mg by mouth Take with snacks or supplements (as needed) simvastatin (ZOCOR) 40 MG tablet 08/08/2015 at pm Coverage Specialist Rn Yes Yes Sig: Take 40 mg by mouth every evening warfarin (COUMADIN) 5 MG tablet 08/08/2015 at Unknown time Coverage Specialist Rn No Yes Sig: Take 0.5 tablets by [...] Count 89 (L) 150 - 450 10e9/L KENER Associated attestation - Malka Smith - 08/14/2015 8:10 AM BLACKENER Physician Attestation I, Malka Smith, saw and [...] unit started at 1708 . See epic KENER documented in this encounter Miscellaneous Notes Plan [...] over phone. All belongings returned to pt. KENER Plan of Care - Suzanna Velasquez RN - 08/17/2015 4:13 AM CST Problem: Goal Outcome Summary Goal: Goal Outcome Summary Outcome: Improving A/O x4, forgetful at times. VSS on room air. Blind. C/o 10/19 soreness to R groin area, gave PRN acetaminophen with relief. Tunneled cath in L groin and immature fistula in R groin, dressings C/D/I. Vascular following. On IV abx. SBA and cane. KENER Plan of Care - Harriett Conklin RN - 08/16/2015 1:51 PM CST Problem: Goal Outcome Summary Goal: Goal Outcome Summary Outcome: Improving AO x4. VSS. Blind. No c/o pain. Tunneled cath in L groin and immature fistula in R groin. Vascular following. On IV abx. Dialysis today. Up with SBA and cane. KENER Plan of Care - Rachel Flores RN - 08/16/2015 5:43 AM CST Problem: Goal Outcome Summary Goal: Goal Outcome Summary Outcome: No Change Alert to self and place. Up w/SBA. CPAP on at night. Hypertensive at times, rechecked at 141/66. Dressing on left groin has scant drainage, otherwise WDL. C/O headache. PRN tylenol given. Continue to monitor. KENER Plan of Care - Caitlyn Sherwood RN [...] at 1130. Creat elevated at 10.2. Up pravin medina activity, fall risk precautions inplace. No urine output. KENER Plan of Care - Beatris Fish RN [...] WDL. Up with SBA. Cont to monitor. KENER Plan of Care - Fern Black RN [...] uit/Thrill+. CPAP use approx 3 hrs. CTM. KENER Provider Notification - Fern Black RN - 08/15/2015 4:26 AM CST MD Notification Notified Person: MD Notified Persons Name: Notification Date/Time: Notification Interaction: Talked with Physician Purpose of Notification: Need 2- doses Heparin Lock 1000 units/mL for tunneled dialysis catheter REDand BLUE lumens. Orders Received: Comments: KENER Plan of Care - Anusha Cano RN - 08/14/2015 11:50 PM CST Problem: Goal Outcome Summary Goal: Goal Outcome Summary Outcome: Improving Pt is slow to respond and forgetful at times, but otherwise A & O. VSS. CMS intact. Had tunneledcatheter placed in R groin today, CDI. Had dialysis today, on renal diet. Up with SBA. KENER Plan of Care - Emile Elizabeth RN [...] to respond but has been calm andcooperative. KENER Plan of Care - Fern Black RN [...] restraints overnight, precautionary mitt to L hand. KENER Provider Notification - Fern Black RN - 08/14/2015 1:46 AM CST MD Notification Notified Person: MD Notified Persons Name: Emily Notification Date/Time: 08/14/15 @0100 Notification Interaction: Talked with Physician Purpose of Notification: Pt needs diet order Orders Received: Previous diet ordered Comments: KENER Op Note - Jaxon Buenrostro MD - [...] of the graft. SURGEON: Jaxon Buenrostro MD OPTICIANRY TEACHER: SHAHZAD OSORIO MD, vascular fellow PAPER BUNDLER: HILLARY MONAE [place] [place] ANESTHESIA: General. PREOPERATIVE MEDICATIONS: Ancef [...] the upper extremities. JAXON BUENROSTRO MD MT: [id number] Name: JULIO CESAR SANDHU Account: [id number] : 1965 Procedure Date: 08/13/2015 Document: [id number] cc: [facility] Jaxon Buenrostro MD KENER Brief Op Note - Hillary Elias MD - 08/13/2015 8:28 PM BLACKENER [facility] Brief Operative Note Pre-operative diagnosis: Bleeding from [...] new procal graft. No evidence of infection. KENER Plan of Care - Emile Elizabeth RN [...] Dialysis is scheduled for tomorrow at 0730. KENER Significant Event - Emile Elizabeth RN - 08/13/2015 2:17 PM CST Patient started bleeding from dialysis site - approximately 1L of blood (interior wall assembler pad was completely saturated with excessive pooling noted between patient's body and bed). VS o/w stable: BP 131/63; HR 70's. Patient did c/o feeling weaker and lightheaded. Pressure was immediately applied to area of bleeding. MD was notified. See orders. Will continue to monitor. KENER Plan of Care - Tena Santamaria RN - 08/13/2015 5:18 AM CST Problem: Goal Outcome Summary Goal: Goal Outcome Summary Outcome: Improving Pt A&Ox4, but slow to respond to questions. VSS. Denies pain this shift. CPAP on while sleeping. KENER Plan of Care - Cornelio Black RN - 08/12/2015 10:02 PM CST Problem: Goal Outcome Summary Goal: Goal Outcome Summary Outcome: No Change A&O. VSS on RA. Tylenol given x 1 for complaints of back pain 12/17 with relief. Up with SBA. Up in the chair for dinner. On dialysis diet; good appetite. IV Ancef post dialysis. Bruit/thrill present at left thigh fistula site. Blood cultures daily. Discharge unknown. KENER Plan of Care - Compa Nj - 08/12/2015 2:41 PM CST Problem: Discharge Planning Goal: Discharge Planning (Adult, OB, Behavioral, Peds) CM: The discharge plan is for patient to return home with his aunt, who is his caregiver.RH/SW KENER Plan of Care - Marisol Pabon RN - 08/12/2015 2:26 PM CST Problem: Goal Outcome Summary Goal: Goal Outcome Summary Outcome: Improving Patient Alert. Up SBA. Dialysis today. Vitals stable, afebrile. Denies pain. IV antibiotics. Left thigh fistula dressing CDI. Possible discharge tomorrow. KENER Plan of Care - Suzanna Hartman RN - 08/12/2015 5:50 AM CST Problem: Goal Outcome Summary Goal: Goal Outcome Summary Outcome: Improving A&Ox3. VSS. L/S diminished. O2 sats 98% on RA. Denies pain. Legally blind. SBA. Dialysis pt withlf thigh fistula. Dressing cdi. Discharge planned 08/13/15. KENER Plan of Care - Beatris Fish RN - 08/11/2015 8:57 PM CST Problem: Goal Outcome Summary Goal: Goal Outcome Summary Outcome: Improving A&O. VSS on RA - afebrile. Denies pain. Lung sounds diminished. Bruit and thrill present at L thigh fistula site. IV ancef. Dialysis planned for tomorrow. Up with SBA. Continue to monitor. KENER Plan of Care - Mackenzie Ashton, LINDA - 08/11/2015 2:13 PM CST Problem: Goal [...] plan unknown at this time pending progress. KENER Provider Notification - Mackenzie Ashton RN - 08/11/2015 8:39 AM BLACKENER Another call received from microbiology. +BC taken on 08/10/15 from left arm. Call placed to Dr. Ramachandran. KENER Provider Notification - Mackenzie Ashton RN - 08/11/2015 8:14 AM BLACKENER Call Received from microbiology regarding + blood cultures. Updated Dr. Ramachandran. This culture was taken in dialysis on 08/10/15. KENER Plan of Care - Xochilt Ford RN - 08/11/2015 5:32 AM CST Problem: Goal Outcome Summary Goal: Goal Outcome Summary Outcome: No Change Pt a/o, VSS. Denies pain. Had dialysis yest w/ 3kg removed. Up w/ 1. L thigh Gortex w/ +bruit/thrill. Multiple +BC. Zosyn dc'd, on IV Vanco. Cr 16.1. Plan for echo today d/t murmur. Will continue to monitor. KENER Provider Notification - Cristiana Newton, RN - 08/10/2015 3:41 PM CST Spoke with Dr. Gaspar regarding Na of 128. Lab was done prior to dialysis. No new order, continue to monitor KENER Plan of Care - Esme Reed RN - 08/10/2015 3:08 PM CST Problem: [...] staph, but no MRSA. Continue to monitor. KENER Pharmacy-Vancomycin Dosing Service - Joi Salcido [facility] - 08/10/2015 1:36 PM CST Pharmacy Vancomycin [...] for subsequent weeks. Joi Salcido, PharmD . KENER Provider Notification - Esme Reed RN - 08/10/2015 9:[address] Gaspar notified of BC from L arm positive for gram+ clusters, staph, and no MRSA. KENER Provider Notification - Esme Reed RN - 08/10/2015 9:35 AM BLACKENER Notified provider that lab called and are unable to read HGB-A1C because value is to low. Wont be able to get a number until total HGB goes up. KENER Plan of Care - Xochilt Ford RN - 08/10/2015 6:57 AM CST Problem: Goal Outcome Summary Goal: Goal Outcome Summary Outcome: No Change Pt a/o, legally blind. VSS ex tmax 103.1, improved to 99 w/ Tylenol. Denies pain. Generalized weakness. L thigh graft site w/ +bruit/thrill. +BC x2, receiving IV Zosyn & Vanco. Cr 14, plan for dialysis today. Will continue to monitor. KENER Provider Notification - Xochilt Ford RN - 08/10/2015 12:27 AM CDT Call & fax received from [facility] show gram positive cocci. paged to notify [...] Continue to monitor Pharmacy-Anticoagulation Service - Wilner Martinez [facility] - 08/09/2015 5:18 PM CDT Clinical Pharmacy - Warfarin Dosing Consult Pharmacy has been consulted to manage this patient???s warfarin therapy. 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 Pharmacy-Admission Medication History - Joi Salcido [facility] - 08/09/2015 3:01 PM CDT Admission medication history interview status for the 08/09/2015 admission is complete. See [facility] admission navigator for prior to admission medications Medication history source reliability:Good Actions taken by pharmacist (provider contacted, etc):Reviewed patient chart and documents from previous hospital. Spoke with patient's caregiver to verify medications and last doses. Additional medication history information not noted on MACHINING ENGINEER med list :None Medication reconciliation/reorder completed by [...] times daily Takes on M, W, F, [place] (Non-dialysis days only) 08/08/2015 at pm Yes Dummy, Bfp User warfarin (COUMADIN) 5 MG tablet Take 0.5 tablets by mouth daily. Patient taking differently: Take 5 mg by mouth daily 08/08/2015 at Unknown time Yes Alejandro Emerson MD calcium acetate (PHOSLO) 667 MG CAPS Take 1,334 mg by mouth 3 times daily (with meals) 08/09/2015 atam Yes Reported, Patient b qdmjcda-F-sikpj acid (NEPHROCAPS) 1 MG capsule Take 1 capsule by mouth daily 08/08/2015 at Unknowntime Yes Reported, Patient simvastatin (ZOCOR) 40 MG tablet Take 40 mg by mouth every evening 08/08/2015 at pm Yes Reported, Patient Joi Salcido, Alicai Plan of Care - Esme Reed RN - 08/09/2015 2:37 PM CDT Problem: Goal Outcome Summary Goal: Goal Outcome Summary Outcome: No Change Pt admitted from [facility]. Was to have dialysis this am but [...] 08/17/2015 8:14 AM Results f or this BLACKENER procedure are i n the results section. BLOOD CULTURE Routine 08/17/2015 8:14 AM Bacteremia Results for this BLACKENER procedure are i n the results section. INR Routine 08/16/2015 9:13 AM Results f or this BLACKENER procedure are i n the results section. BLOOD CULTURE Routine 08/16/2015 9:13 AM Bacteremia Results for this BLACKENER procedure are i n the results section. INR Routine 08/15/2015 3:45 AM Results f or this BLACKENER procedure are i n the results section. PLATELET COUNT Routine 08/15/2015 3:45 AM Results for this BLACKENER procedure are i n the results section. LACTIC ACID STAT 08/15/2015 3:45 AM Results f or this BLACKENER procedure are i n the results section. BLOOD CULTURE Routine 08/15/2015 3:45 AM Bacteremia Results for this BLACKENER procedure are i n the results section. IR CVC TUNNEL Routine 08/14/2015 11:17 Results fo r this PLACEMENT > 5 YRS OF AM BLACKENER procedu re are in AGE the results section. INR Routine 08/14/2015 3:40 AM Results f or this BLACKENER procedure are i n the results section. BLOOD CULTURE Routine 08/14/2015 3:40 AM Bacteremia Results for this BLACKENER procedure are i n the results section. BASIC METABOLIC PANEL Routine 08/14/2015 3:40 AM Results for this BLACKENER procedure are i n the results section. CBC WITH PLATELETS Routine 08/14/2015 3:40 AM Res ults for this BLACKENER procedure are i n the results section. INR Timed 08/13/2015 10:50 Results for this PM BLACKENER procedure are i n the results section. GLUCOSE BY METER Routine 08/13/2015 6:19 PM Resul ts for this BLACKENER procedure are i n the results section. CREATION, GRAFT, 08/13/2015 5:19 PM unknown ARTERIOVENOUS, LOWER BLACKENER EXTREMITY BLOOD COMPONENT Routine 08/13/2015 2:15 PM Result s for this BLACKENER procedure are i n the results section. BLOOD COMPONENT Routine 08/13/2015 2:15 PM Result s for this BLACKENER procedure are i n the results section. INR STAT 08/13/2015 2:15 PM Results f or this BLACKENER procedure are i n the results section. ABO/RH TYPE AND SCREEN STAT 08/13/2015 2:15 PM Results for this BLACKENER procedure are i n the results section. CBC WITH PLATELETS STAT 08/13/2015 2:15 PM Res ults for this BLACKENER procedure are i n the results section. BLOOD COMPONENT Routine 08/13/2015 2:00 PM Result s for this BLACKENER procedure are i n the results section. BLOOD COMPONENT Routine 08/13/2015 2:00 PM Result s for this BLACKENER procedure are i n the results section. PREPARE PLASMA (UNIT) Routine 08/13/2015 2:00 PM Bacteremia Results for this BLACKENER procedure are i n the results section. INR Routine 08/13/2015 8:26 AM Results f or this BLACKENER procedure are i n the results section. BLOOD CULTURE Routine 08/13/2015 8:26 AM Bacteremia Results for this BLACKENER procedure are i n the results section. BASIC METABOLIC PANEL Routine 08/13/2015 8:26 AM Results for this BLACKENER procedure are i n the results section. INR Routine 08/12/2015 8:14 AM Results f or this BLACKENER procedure are i n the results section. BLOOD CULTURE Routine 08/12/2015 8:14 AM Bacteremia Results for this BLACKENER procedure are i n the results section. BASIC METABOLIC PANEL Routine 08/12/2015 8:14 AM Results for this BLACKENER procedure are i n the results section. CBC WITH PLATELETS Routine 08/12/2015 8:14 AM Res ults for this BLACKENER procedure are i n the results section. CLOSTRIDIUM DIFFICILE Routine 08/11/2015 12:50 Re sults for this TOXIN B PM BLACKENER procedure are i n the results section. ECHO COMPLETE Routine 08/11/2015 9:36 AM Results for this BLACKENER procedure are i n the results section. BLOOD CULTURE Routine 08/11/2015 8:41 AM Results for this BLACKENER procedure are i n the results section. INR Routine 08/11/2015 8:38 AM Results f or this BLACKENER procedure are i n the results section. BASIC METABOLIC PANEL Routine 08/11/2015 8:38 AM Results for this BLACKENER procedure are i n the results section. BLOOD CULTURE Routine 08/11/2015 8:36 AM Results for this BLACKENER procedure are i n the results section. US EXTREMITY ARTERIAL Routine 08/10/2015 3:07 PM Results for this VENOUS DIALYSIS ACCESS BLACKENER proce liyah are in GRAFT the results section. BLOOD CULTURE Routine 08/10/2015 1:55 PM Results for this BLACKENER procedure are i n the results section. BLOOD CULTURE STAT 08/10/2015 11:00 Results fo r this AM BLACKENER procedure are i n the results section. VANCOMYCIN LEVEL STAT 08/10/2015 8:24 AM Resul ts for this BLACKENER procedure are i n the results section. INR Routine 08/10/2015 8:24 AM Results f or this BLACKENER procedure are i n the results section. HEMOGLOBIN A1C Routine 08/10/2015 8:24 AM Results for this BLACKENER procedure are i n the results section. BASIC METABOLIC PANEL Routine 08/10/2015 8:24 AM Results for this BLACKENER procedure are i n the results section. CBC WITH PLATELETS Routine 08/10/2015 8:24 AM Res ults for this BLACKENER procedure are i n the results section. [...] encounter Results Blood culture (08/17/2015 8:14 AM BLACKENER) [facility] g[facility] Method Time Signature Specimen Blood Right [place] Description Arm [facility] Special Aerobic and [place] Requests anaerobic [facility] received Culture Micro No growth INFECTIOUS DISEASE DIAGNOSTIC LABORATORY Micro Report FINAL INFECTIOUS Status 08/23/2015 DISEASE DIAGNOSTIC LABORATORY Specimen Anatomical Collection Method Collection Time Receive d Time (Source) Location / / Volume Laterality Blood specimen 08/17/2015 8:14 AM 015 8:19 (specimen) BLACKENER AM BLACKENER Hillary Carroll MD LAB - MICRO GENERAL ORDERABL ES Performing Organization Address City/State/ZIP Code Phon e Number INFECTIOUS DISEASES [address] [place] [address] DIAGNOSTIC LABORATORY, [facility] [address] [place] [address], [facility] [place] [address] INFECTIOUS DISEASE [address] [place] [address], [facility] DIAGNOSTIC LABORATORY (ABNORMAL) INR (08/17/2015 8:14 AM BLACKENER) P athologist Signature INR 1.90 (H) 0.86 - 1.14 [facility] Specimen Anatomical Collection Method Collection Time Receive d Time (Source) Location / / Volume Laterality Blood specimen 08/17/2015 8:14 AM 8:19 (specimen) BLACKENER AM BLACKENER Hillary Carroll MD LAB - BLOOD ORDERABLES Performing Organization Address City/State/ZIP Code Phon e Number M [facility] [address] [phone] [facility] [address] [place] [address], [facility] [[email or web address] [phone] Blood culture (08/16/2015 9:13 AM BLACKENER) [facility] g[facility] Method Time Signature Specimen Blood Right [facility] Arm [facility] Special Aerobic and [facility] received Culture Micro No growth INFECTIOUS DISEASE DIAGNOSTIC LABORATORY Micro Report FINAL INFECTIOUS Status 08/22/2015 DISEASE DIAGNOSTIC LABORATORY Specimen Anatomical Collection Method Collection Time Receive d Time (Source) Location / / Volume Laterality Blood specimen 08/16/2015 9:13 AM 9:36 (specimen) BLACKENER AM BLACKENER Hillary Carroll MD LAB - MICRO GENERAL ORDERABL ES Performing Organization Address City/State/ZIP Code Phon e Number INFECTIOUS DISEASES [address] [place] [address] DIAGNOSTIC LABORATORY, [facility] [address] [phone] INFECTIOUS DISEASE [address] [place] [address], [facility] DIAGNOSTIC LABORATORY (ABNORMAL) INR (08/16/2015 9:13 AM BLACKENER) P athologist Signature INR 1.80 (H) 0.86 - 1.14 [facility] Specimen Anatomical Collection Method Collection Time Receive d Time (Source) Location / / Volume Laterality Blood specimen 08/16/2015 9:13 AM 015 9:37 (specimen) BLACKENER AM BLACKENER Hillary Carroll MD LAB - BLOOD ORDERABLES Performing Organization Address City/State/ZIP Code Phon e Number M [facility] [address] [place] [address] [facility] [address] [place] [address], [place] [phone] Lactic acid level STAT (08/15/2015 3:45 AM BLACKENER) P athologist Signature Lactic Acid 0.8 0.4 - 2.0 [place] mmol/L [facility] Specimen Anatomical Collection Method Collection Time Receive d Time (Source) Location / / Volume Laterality Blood specimen 08/15/2015 3:45 AM 015 4:00 (specimen) BLACKENER AM BLACKENER Jose Palomino MD LAB - BLOOD ORDERABLES Performing Organization Address City/State/ZIP Code Phon e Number [facility] [address] [place] [address] [phone] [facility] [address] [place] [address], [place] [phone] Blood culture (08/15/2015 3:45 AM BLACKENER) [facility] Method Time Signature Specimen Blood Left [place] Description Hand [facility] Special Aerobic and [place] Requests anaerobic [facility] received Culture Micro No growth INFECTIOUS DISEASE DIAGNOSTIC LABORATORY Micro Report FINAL INFECTIOUS Status 08/21/2015 DISEASE DIAGNOSTIC LABORATORY Specimen Anatomical Collection Method Collection Time Receive d Time (Source) Location / / Volume Laterality Blood specimen 08/15/2015 3:45 AM 015 4:00 (specimen) BLACKENER AM BLACKENER Hillary Carroll MD LAB - MICRO GENERAL ORDERABL ES Performing Organization Address City/State/ZIP Code Phon e Number INFECTIOUS DISEASES [address] [place] [address] DIAGNOSTIC LABORATORY, [facility] [address] [place] [address], [facility] INFECTIOUS DISEASE [address] [place] [address], [facility] DIAGNOSTIC LABORATORY (ABNORMAL) INR (08/15/2015 3:45 AM BLACKENER) athologist Signature INR 1.36 (H) 0.86 - 1.14 [facility] Specimen Anatomical Collection Method Collection Time Receive d Time (Source) Location / / Volume Laterality Blood specimen 08/15/2015 3:45 AM 015 4:00 (specimen) BLACKENER AM BLACKENER Hillary Carroll MD LAB - BLOOD ORDERABLES Performing Organization Address City/State/ZIP Code Phon e Number M [facility] [address] [place] [address] [phone] [facility] [address] [place] [address], [place] [phone] (ABNORMAL) Platelet count (08/15/2015 3:45 AM BLACKENER) P athologist Signature Platelet Count 138 (L) 150 - 450 [place] 10e9/L [facility] Specimen Anatomical Collection Method Collection Time Receive d Time (Source) Location / / Volume Laterality Blood specimen 08/15/2015 3:45 AM 015 4:00 (specimen) BLACKENER AM BLACKENER Hillary Carroll MD LAB - BLOOD ORDERABLES Performing Organization Address City/State/ZIP Code Phon e Number [facility] [address] [place] [address] [phone] [facility] [address] [place] [address], [place] [phone] IR CVC Tunnel Placement > 5 Yrs of Age (08/14/2015 11:17 AM BLACKENER) Anatomical Region Laterality Modality Chest Radio Fluoroscopy Specimen (Source) Anatomical Location Collection Method / Collectio n Time Received Time / Laterality Volume Addenda Addendum by Darrian Moya MD on 08/18 9:04 AM BLACKENER Julio Cesar Sandhu Accession # [id number] The original report on this patient was [...] DARRIAN MOYA MD Impressions 08/14/2015 4:25 PM BLACKENER IMPRESSION: Successful right femoral tunneled dialysis catheter placement. DARRIAN MOYA MD Narrative 08/14/2015 4:25 PM BLACKENER INTERVENTIONAL RADIOLOGY CVC TUNNEL PLACEMENT GREATER THAN [...] a nd subsequently upsized to a 5 Nigerian dilator. A subcutaneous tunnel wa s then created along the right thigh to the common femoral access site. A Palindrome 14.5 Nigerian 28 cm tip to cuff dialysis catheter [...] a nd subsequently upsized to a 5 Nigerian dilator. A subcutaneous tunnel wa s then created along the right thigh to the common femoral access site. A Palindrome 14.5 [place] 28 cm tip to cuff dialysis catheter [...] IR ORDERABLES (ABNORMAL) INR (08/14/2015 3:40 AM BLACKENER) P athologist Signature INR 1.63 (H) 0.86 - 1.14 [facility] Specimen Anatomical Collection Method Collection Time Receive d Time (Source) Location / / Volume Laterality Blood specimen 08/14/2015 3:40 AM 015 3:45 (specimen) BLACKENER AM BLACKENER Jose Palomino MD LAB - BLOOD ORDERABLES Performing Organization Address City/State/ZIP Code Phon e Number M [facility] [address] [place] [address] [phone] [facility] [address] [place] [address], [place] [phone] (ABNORMAL) Basic metabolic panel (08/14/2015 3:40 AM BLACKENER) [facility] Method Time Signature Sodium 131 (L) 133 - 144 [place] mmol/L [facility] Potassium 4.5 3.4 - 5.3 [place] mmol/L [facility] Chloride 96 94 - 109 [place] mmol/L [facility] Carbon Dioxide 26 20 - 32 [place] mmol/L [facility] Anion Gap 9 3 - 14 [place] mmol/L [facility] Glucose 118 (H) 70 - 99 [place] mg/dL [facility] Urea Nitrogen 65 (H) 7 - 30 [place] mg/dL [facility] Creatinine 10.20 (H) 0.66 - [place] 1.25 mg/dL [facility] GFR Estimate 5 (L) >60 [place] mL/min/1.[address] Comment: Non GFR Calc GFR Estimate If Black 7 (L) >60 mL/min/1.7m2 F [facility] Comment: GFR Calc Calcium 7.8 (L) 8.5 - 10.1 mg/dL [facility] Specimen Anatomical Collection Method Collection Time Receive d Time (Source) Location / / Volume Laterality Blood specimen 08/14/2015 3:40 AM 015 3:45 (specimen) BLACKENER AM BLACKENER Jose Palomino MD LAB - BLOOD ORDERABLES Performing Organization Address City/State/ZIP Code Phon e Number [facility] [address] [place] [address] [phone] [facility] [address] [place] [address], [place] [phone] (ABNORMAL) CBC with platelets (08/14/2015 3:40 AM BLACKENER) Analysis Performed At Patho logist Time Signature WBC 6.5 4.0 - 11.0 [place] 10e9/L [facility] RBC Count 2.67 (L) 4.4 - 5.9 [place] 10e12/L [facility] Hemoglobin 7.3 (L) 13.3 - [place] 17.7 g/dL [facility] Hematocrit 22.4 (L) 40.0 - [place] 53.0 % [facility] MCV 84 78 - 100 [place] fl [facility] MCH 27.3 26.5 - [place] 33.0 pg [facility] MCHC 32.6 31.5 - [place] 36.5 g/dL [facility] RDW 17.5 (H) 10.0 - [place] 15.0 % [facility] Platelet Count 120 (L) 150 - 450 [place] 10e9/L [facility] Specimen Anatomical Collection Method Collection Time Receive d Time (Source) Location / / Volume Laterality Blood specimen 08/14/2015 3:40 AM 015 3:45 (specimen) BLACKENER AM BLACKENER Jose Palomino MD LAB - BLOOD ORDERABLES Performing Organization Address City/State/ZIP Code Phon e Number [facility] [address] [address] HOSPITAL [facility] [address] [address], [facility] [[email or web address]] [phone] Blood culture (08/14/2015 3:40 AM BLACKENER) Patholo gist Method Time Signature Specimen Blood Right [place] Description Arm [facility] Special Aerobic and [place] Requests anaerobic [facility] received Culture Micro No growth INFECTIOUS DISEASE DIAGNOSTIC LABORATORY Micro Report FINAL INFECTIOUS Status 08/20/2015 DISEASE DIAG[facility]STIC LABORATORY Specimen Anatomical Collection Method Collection Time Receive d Time (Source) Location / / Volume Laterality Blood specimen 08/14/2015 3:40 AM 015 3:45 (specimen) BLACKENER AM BLACKENER Hillary Carroll MD LAB - MICRO GENERAL ORDERABL ES Performing Organization Address City/State/ZIP Code Phon e Number INFECTIOUS DISEASES [address] [place] [address] DIAGNOSTIC LABORATORY, [facility] [address] [place] [address], [facility] INFECTIOUS DISEASE [address] [place] [phone], [facility] DIAGNOSTIC LABORATORY (ABNORMAL) INR (08/13/2015 10:50 PM BLACKENER) athologist Signature INR 1.72 (H) 0.86 - 1.14 [facility] Specimen Anatomical Collection Method Collection Time Receive d Time (Source) Location / / Volume Laterality Blood specimen 08/13/2015 10:50 5 (specimen) PM BLACKENER 10:55 PM BLACKENER Ivone Bearden [facility] LAB - BLOOD ORDERABLES Performing Organization Address City/[facility]/ZIP Code Phon e Number [facility] [address] [address] [phone] [facility] [address] [place] [address], [facility] [[email or web address]] [phone] (ABNORMAL) Glucose by meter (08/13/2015 6:19 PM BLACKENER) athologist Signature Glucose 221 (H) 70 - 99 POINT OF CARE mg/dL TEST, GLUCOSE Specimen Anatomical Collection Method Collection Time Receive d Time (Source) Location / / Volume Laterality 08/13/2015 6:19 PM 5 6:25 BLACKENER PM BLACKENER Maria Fernanda Queen MD LAB - BEAKER POCT Performing Organization Address City/[facility]/ZIP Code Phon e Number FV POINT OF CARE TEST, GLUCOSE POINT OF CARE TEST, GLUCOSE Blood component (08/13/2015 2:15 PM BLACKENER) [facility] gist Method Time Signature Unit Number [id number] [facility] Blood Red Blood Cells [place] Component LeukoReduced [facility] Type (Part 2) HOSPITAL Division 00 [facility] Status of Released to care [place] Unit unit [facility] Specimen Anatomical Collection Method Collection Time Receive d Time (Source) Location / / Volume Laterality 08/13/2015 2:15 PM 5 2:26 BLACKENER PM BLACKENER Janice Gaspar MD LABORATORY Performing Organization Address City/State/ZIP Code Phon e Number [facility] [address] [address] [facility] [address] [address], [facility] [[email or web address]] [phone] Blood component (08/13/2015 2:15 PM BLACKENER) Patholo gist Method Time Signature Unit Number [id number] [facility] Blood Red Blood [place] Component Cells [facility] Leukocyte HOSPITAL Reduced Division 00 [facility] Status of No longer [place] Unit available [facility] 08/17/2015 HOSPITAL 0300 Specimen Anatomical Collection Method Collection Time Receive d Time (Source) Location / / Volume Laterality 08/13/2015 2:15 PM 5 2:26 BLACKENER PM BLACKENER Janice Gaspar MD LABORATORY Performing Organization Address City/State/ZIP Code Phon e Number M [facility] [address], [place] [address] [facility] [address] [address], [facility] [address], [place] [address], [facility] [phone] (ABNORMAL) CBC with platelets (08/13/2015 2:15 PM BLACKENER) athologist Signature WBC 4.7 4.0 - 11.0 [place] 10e9/L [facility] RBC Count 2.64 (L) 4.4 - 5.9 [place] 10e12/L [facility] Hemoglobin 6.9 (LL) 13.3 - 17.7 [place] g/dL [facility] Comment: This result has been called to EMILE by ADRIANO STUDENT 1 on 08/13/15 at 14:46, and has been read back. Hematocrit 21.9 (L) 40.0 - 53.0 % [facility] MCV 83 78 - 100 fl [facility] MCH 26.1 (L) 26.5 - 33.0 pg [facility] MCHC 31.5 31.5 - 36.5 g/dL [facility] RDW 17.7 (H) 10.0 - 15.0 % [facility] Platelet Count 131 (L) 150 - 450 10e9/L [facility] Specimen Anatomical Collection Method Collection Time Receive d Time (Source) Location / / Volume Laterality Blood specimen 08/13/2015 2:15 PM 015 2:26 (specimen) BLACKENER PM BLACKENER Janice Gaspar MD LAB - BLOOD ORDERABLES Performing Organization Address City/State/ZIP [facility] Phon e Number [facility] [address] [place] [address] [facility] [address] [place] [address], [place] [phone] (ABNORMAL) INR (08/13/2015 2:15 PM BLACKENER) P athologist Signature INR 3.30 (H) 0.86 - 1.14 [facility] Specimen Anatomical Collection Method Collection Time Receive d Time (Source) Location / / Volume Laterality Blood specimen 08/13/2015 2:15 PM 015 2:26 (specimen) BLACKENER PM BLACKENER Janice Gaspar MD LAB - BLOOD ORDERABLES Performing Organization Address City/[facility]/ZIP Code Phon e Number [facility] [address] [place] [address] [facility] [address] [place] [address], [place] [phone] ABO/Rh type and screen (08/13/2015 2:15 PM BLACKENER) Patholo gist Method Time Signature Units Ordered 2 [facility] ABO O [facility] RH(D) Pos [facility] Antibody Neg [place] Screen [facility] Test Valid [facility] Only At [facility] HOSPITAL Specimen 08/16/2015 [place] Expires [facility] Crossmatch Red Blood [place] Cells [facility] Specimen Anatomical Collection Method Collection Time Receive d Time (Source) Location / / Volume Laterality Blood specimen 08/13/2015 2:15 PM 015 2:26 (specimen) BLACKENER PM BLACKENER Janice Gaspar MD LAB - BLOOD BANK TEST ORDER Performing Organization Address City/State/ZIP Code Phon e Number [facility] [address] [place] [address] [phone] [facility] [address] [place] [address], [place] [phone] Blood component (08/13/2015 2:00 PM BLACKENER) [facility] Advanced Magnet Lab Method Time Signature Unit Number [id number] [facility] Blood Plasma, [place] Component Thawed [facility] 00 [facility] Status of No longer [place] Unit available [facility] 08/16/2015 HOSPITAL 1439 Specimen Anatomical Collection Method Collection Time Receive d Time (Source) Location / / Volume Laterality 08/13/2015 2:00 PM 5 2:01 BLACKENER PM BLACKENER Janice Gaspar MD LABORATORY Performing Organization Address City/State/ZIP Code Phon e Number [facility] [address] [place] [address] [phone] [facility] [address] [place] [address], [place] [phone] Blood component (08/13/2015 2:00 PM BLACKENER) [facility] Lab Method Time Signature Unit Number [id number] [facility] Blood Plasma, [place] Component Thawed [facility] 00 [facility] Status of No longer [place] Unit available [facility] 08/16/2015 HOSPITAL 1439 Specimen Anatomical Collection Method Collection Time Receive d Time (Source) Location / / Volume Laterality 08/13/2015 2:00 PM 5 2:01 BLACKENER PM BLACKENER Janice Gaspar MD LABORATORY Performing Organization Address City/State/ZIP Code Phon e Number M [facility] [address] [place] [address] [phone] [facility] [address] [place] [address], [place] [phone] Plasma prepare order unit (08/13/2015 2:00 PM BLACKENER) athologist Signature Ordered Plasma [place] Component Type [facility] Units Ordered 0 [facility] Specimen Anatomical Collection Method Collection Time Receive d Time (Source) Location / / Volume Laterality 08/13/2015 2:00 PM 5 2:01 BLACKENER PM BLACKENER Janice Gaspar MD BLOOD BANK PRODUCT ORDERABLE S Performing Organization Address City/State/ZIP Code Phon e Number [facility] [address] [address] HOSPITAL [facility] [address] [place] [address], [place] [phone] Blood culture (08/13/2015 8:26 AM BLACKENER) [facility] gist Method Time Signature Specimen Blood Left [place] Description Arm [facility] Special Aerobic and [place] Requests anaerobic [facility] received Culture Micro No growth [facility] Micro Report FINAL [facility] 08/19/2015 [facility] Specimen Anatomical Collection Method Collection Time Receive d Time (Source) Location / / Volume Laterality Blood specimen 08/13/2015 8:26 AM 015 8:35 (specimen) BLACKENER AM BLACKENER Hillary Carroll MD LAB - MICRO GENERAL ORDERABL ES Performing Organization Address City/State/ZIP Code Phon e Number [facility] [address] [place] [address] [facility] [address] [address], [place] [phone] (ABNORMAL) INR (08/13/2015 8:26 AM BLACKENER) P athologist Signature INR 3.38 (H) 0.86 - 1.14 [facility] Specimen Anatomical Collection Method Collection Time Receive d Time (Source) Location / / Volume Laterality Blood specimen 08/13/2015 8:26 AM 015 8:36 (specimen) BLACKENER AM BLACKENER Hillary Carroll MD LAB - BLOOD ORDERABLES Performing Organization Address City/State/ZIP Code Phon e Number M [facility] [address] [place] [address] [facility] [address] [place] [address], [place] [phone] (ABNORMAL) Basic metabolic panel (08/13/2015 8:26 AM BLACKENER) Analysis Performed At [facility] logist Time Signature Sodium 131 (L) 133 - 144 [place] mmol/L [facility] Potassium 3.9 3.4 - 5.3 [place] mmol/L [facility] Chloride 94 94 - 109 [place] mmol/L [facility] Carbon Dioxide 27 20 - 32 [place] mmol/L [facility] Anion Gap 10 3 - 14 [place] mmol/L [facility] Glucose 135 (H) 70 - 99 [place] mg/dL [facility] Urea Nitrogen 53 (H) 7 - 30 [place] mg/dL [facility] Creatinine 8.82 (H) 0.66 - [place] 1.25 mg/dL [facility] GFR Estimate 6 (L) >60 [place] mL/min/1.[address] Comment: Non GFR Calc GFR Estimate If Black 8 (L) >60 mL/min/1.7m2 F [facility] Comment: GFR Calc Calcium 8.0 (L) 8.5 - 10.1 mg/dL [facility] Specimen Anatomical Collection Method Collection Time Receive d Time (Source) Location / / Volume Laterality Blood specimen 08/13/2015 8:26 AM 015 8:36 (specimen) BLACKENER AM BLACKENER Janice Gaspar MD LAB - BLOOD ORDERABLES Performing Organization Address City/State/ZIP Code Phon e Number Edna [facility] [address] [place] [address] [facility] [address] [address], [place] [phone] Blood culture (08/12/2015 8:14 AM BLACKENER) [facility] gist Method Time Signature Specimen Blood Left [place] Description Arm [facility] Special Aerobic and [place] Requests anaerobic [facility] received Culture Micro No growth INFECTIOUS DISEASE DIAGNOSTIC LABORATORY Micro Report FINAL INFECTIOUS Status 08/18/2015 DISEASE DIAGNOSTIC LABORATORY Specimen Anatomical Collection Method Collection Time Receive d Time (Source) Location / / Volume Laterality Blood specimen 08/12/2015 8:14 AM 015 8:28 (specimen) BLACKENER AM BLACKENER Hillary Carroll MD LAB - MICRO GENERAL ORDERABL ES Performing Organization Address City/[facility]/ZIP Code Phon e Number INFECTIOUS DISEASES [address] [place] [address] DIAGNOSTIC LABORATORY, [facility] [address] [place] [address], [facility] [phone] [facility] INFECTIOUS DISEASE [address] [place] [address], [facility] DIAGNOSTIC LABORATORY (ABNORMAL) INR (08/12/2015 8:14 AM BLACKENER) P athologist Signature INR 4.38 (H) 0.86 - 1.14 [facility] Specimen Anatomical Collection Method Collection Time Receive d Time (Source) Location / / Volume Laterality Blood specimen 08/12/2015 8:14 AM 015 8:28 (specimen) BLACKENER AM BLACKENER Hillary Carroll MD LAB - BLOOD ORDERABLES Performing Organization Address City/[facility]/ZIP Code Phon e Number [facility] [address] [place] [address] [facility] [address] [place] [address], [facility] [[email or web address]] [phone] (ABNORMAL) CBC with platelets (08/12/2015 8:14 AM BLACKENER) Analysis Performed At Patho logist Time Signature WBC 4.4 4.0 - 11.0 [place] 10e9/L [facility] RBC Count 2.87 (L) 4.4 - 5.9 [place] 10e12/L [facility] Hemoglobin 7.7 (L) 13.3 - [place] 17.7 g/dL [facility] Hematocrit 23.2 (L) 40.0 - [place] 53.0 % [facility] MCV 81 78 - 100 [facility] MCH 26.8 26.5 - [place] 33.0 pg [facility] MCHC 33.2 31.5 - [place] 36.5 g/dL [facility] RDW 17.3 (H) 10.0 - [place] 15.0 % [facility] Platelet Count 128 (L) 150 - 450 [place] 10e9/L [facility] Specimen Anatomical Collection Method Collection Time Receive d Time (Source) Location / / Volume Laterality Blood specimen 08/12/2015 8:14 AM 015 8:28 (specimen) BLACKENER AM BLACKENER Janice Gaspar MD LAB - BLOOD ORDERABLES Performing Organization Address City/State/ZIP Code Phon e Number [facility] [address] [address] [phone] [facility] [address] [address], [place] [phone] (ABNORMAL) Basic metabolic panel (08/12/2015 8:14 AM BLACKENER) [facility] gist Method Time Signature Sodium 127 (L) 133 - 144 [place] mmol/L [facility] Potassium 4.1 3.4 - 5.3 [place] mmol/L [facility] Chloride 91 (L) 94 - 109 [place] mmol/L [facility] Carbon Dioxide 23 20 - 32 [place] mmol/L [facility] Anion Gap 13 3 - 14 [place] mmol/L [facility] Glucose 116 (H) 70 - 99 [place] mg/dL [facility] Urea Nitrogen 94 (H) 7 - 30 [place] mg/dL [facility] Creatinine 12.60 (H) 0.66 - [place] 1.25 mg/dL [facility] GFR Estimate 4 (L) >60 [place] mL/min/1.[address] Comment: Non GFR Calc GFR Estimate If Black 5 (L) >60 mL/min/1.7m2 F [facility] Comment: GFR Calc Calcium 8.2 (L) 8.5 - 10.1 mg/dL [facility] Specimen Anatomical Collection Method Collection Time Receive d Time (Source) Location / / Volume Laterality Blood specimen 08/12/2015 8:14 AM 015 8:28 (specimen) BLACKENER AM BLACKENER Janice Gaspar MD LAB - BLOOD ORDERABLES Performing Organization Address City/State/ZIP Code Phon e Number [facility] [address] [address] [phone] [facility] [address] [address], U [phone] Clostridium difficile toxin B PCR (08/11/2015 12:50 PM BLACKENER) Component Value Ref Test Analysis Performed At [facility] Range Method Time Signature Specimen Feces [facility] C Diff Toxin B Negative NEG [facility] PCR Negative: Clostridium difficile target D NA sequences NOT detected, presumed [place] [facility] negative for Clostridium difficile toxin B or t he number of bacteria present [facility] may be below the limit of detection for the test. BANK FDA approved assay performed using [employer] GeneXpert real-t viktoria PCR. A negative result [...] specimen 08/11/2015 12:50 5 1:04 (specimen) PM BLACKENER PM BLACKENER Janice Gaspar MD LAB - MICRO GENERAL ORDERABL ES Performing Organization Address City/State/ZIP Code Phon e Number [facility] [address] [place] [address] [facility] [address] [address], U [phone] Echocardiogram (08/11/2015 9:36 AM BLACKENER) Anatomical Region Laterality Modality Echocardiography Specimen (Source) Anatomical Collection Method Collection Time Re ceived Time Location / / Volume Laterality 08/11/2015 8:47 AM BLACKENER Narrative 08/11/2015 9:51 AM BLACKENER Interpretation Summary [facility] Echocardiography Laboratory [address] [address] Name: JULIO CESAR SANDHU : 1965 Study Date: 08/11/2015 08:47 AM Age: 50 yrs Gender: Male Patient Location: [facility] Reason For Study: Endocarditis Ordering Physician: JANICE GASPAR Referring Physician: CORNELL BUTT Performed By: Emiliano Balderrama [facility] BSA: 1.9 m2 Height: 64 in Weight: [...] be different from the original. Interpretation Summary [facility] Echocardiography Laboratory [address] [place] [address] Name: JULIO CESAR SANDHU : 1965 Study Date: 08/11/2015 08:47 AM Age: 50 yrs Gender: Male Patient Location: [facility] Reason For Study: Endocarditis Ordering Physician: [...] ECHO ORDERABLES Blood culture (08/11/2015 8:41 AM BLACKENER) Component Value Ref Test Analysis Performed At [facility] Range Method Time Signature Specimen Blood [facility] Unspecified [place] [facility] Special Aerobic and [facility] anaerobic [facility] bottles [facility] received BANK Culture Micro No growth INFECTIOUS DISEASE DIAGNOSTIC LABORATORY Micro Report FINAL INFECTIOUS Status 08/17/2015 DISEASE DIAGNOSTIC LABORATORY Specimen Anatomical Collection Method Collection Time Receive d Time (Source) Location / / Volume Laterality Blood specimen 08/11/2015 8:41 AM 015 8:43 (specimen) BLACKENER AM BLACKENER Hillary Carroll MD LAB - MICRO GENERAL ORDERABL ES Performing Organization Address City/State/ZIP Code Phon e Number INFECTIOUS DISEASES [address] [place] [address] DIAGNOSTIC LABORATORY, [id number] [place] [address] INFECTIOUS DISEASE [address] DIAGNOSTIC LABORATORY (ABNORMAL) Basic metabolic panel (08/11/2015 8:38 AM BLACKENER) [facility] Method Time Signature Sodium 129 (L) 133 - 144 [facility] mmol/L [facility] Potassium 3.9 3.4 - 5.3 [place] mmol/L [facility] Chloride 93 (L) 94 - 109 [facility] mmol/L [facility] Carbon Dioxide 24 20 - 32 [facility] mmol/L [facility] Anion Gap 12 3 - 14 [facility] mmol/L [facility] Glucose 96 70 - 99 [place] mg/dL [facility] Urea Nitrogen 80 (H) 7 - 30 [facility] mg/dL [facility] Creatinine 10.90 (H) 0.66 - [place] 1.25 mg/dL [facility] GFR Estimate 5 (L) >60 [place] mL/min/1.[address] Comment: Non GFR Calc GFR Estimate If Black 6 (L) >60 mL/min/1.7m2 F [place] [facility] Comment: GFR Calc Calcium 8.2 (L) 8.5 - 10.1 mg/dL [facility] Specimen Anatomical Collection Method Collection Time Receive d Time (Source) Location / / Volume Laterality 08/11/2015 8:38 AM 5 BLACKENER 10:36 AM BLACKENER Maria Fernanda Queen MD LAB - BLOOD ORDERABLES Performing Organization Address City/State/ZIP Code Phon e Number M [facility] [address] [place] [phone] [facility] [address] [place] [address], [place] [phone] (ABNORMAL) INR (08/11/2015 8:38 AM BLACKENER) P athologist Signature INR 4.58 (H) 0.86 - 1.14 [facility] Specimen Anatomical Collection Method Collection Time Receive d Time (Source) Location / / Volume Laterality Blood specimen 08/11/2015 8:38 AM 015 8:42 (specimen) BLACKENER AM BLACKENER Hillary Carroll MD LAB - BLOOD ORDERABLES Performing Organization Address City/State/ZIP Code Phon e Number [facility] [address] [place] [address] [facility] [address] [place] [address], [place] [phone] Blood culture (08/11/2015 8:36 AM BLACKENER) Patholo gist Method Time Signature Specimen Blood Right [place] Description Hand [facility] Special Aerobic and [place] Requests anaerobic [facility] received Culture Micro No growth INFECTIOUS DISEASE DIAGNOSTIC LABORATORY Micro Report FINAL INFECTIOUS Status 08/17/2015 DISEASE DIAGNOSTIC LABORATORY Specimen Anatomical Collection Method Collection Time Receive d Time (Source) Location / / Volume Laterality Blood specimen 08/11/2015 8:36 AM 015 8:42 (specimen) BLACKENER AM BLACKENER Janice Gaspar MD LAB - MICRO GENERAL ORDERABL ES Performing Organization Address City/State/ZIP Code Phon e Number INFECTIOUS DISEASES [address] [facility] [place] [address] DIAGNOSTIC LABORATORY, [facility] [facility] [address] [address] INFECTIOUS DISEASE [address] [place] [address], [facility] DIAGNOSTIC LABORATORY US Ext Arterial Venous Dialys Acs Graft (08/10/2015 3:07 PM BLACKENER) Anatomical Region Laterality Modality Vascular, Abdomen/Pelvis Ultrasound Specimen (Source) Anatomical Location Collection Method / Collectio n Time Received Time / Laterality Volume Impressions 08/10/2015 9:45 PM BLACKENER IMPRESSION: 1. Patent left thigh profunda femoris [...] DARRIAN MOYA MD Narrative 08/10/2015 9:45 PM BLACKENER US EXTREMITY ARTERIAL VENOUS DIALYSIS ACCESS GRAFT [...] ORDERABLES (ABNORMAL) Blood culture (08/10/2015 1:55 PM BLACKENER) Component Value Ref Test Analysis Performed At [facility] Range Method Time Signature Specimen Blood Left Arm MICRO RAPID Description TESTING LAB Culture Micro Cultured on the 1st day of incubation: Staphylococcus a ureus INFECTIOUS Critical Value/Significant Value, preliminary re sult only, called to and read DISEASE back by Ebony Laguna @0832 08/11/2015. CT DIAGNOSTIC Susceptibility testing done on previous specimen LABORATORY (A) Micro Report FINAL 08/13/2015 INFECTIOUS Status DISEASE DIAGNOSTIC LABORATORY Specimen Anatomical Collection Method Collection Time Receive d Time (Source) Location / / Volume Laterality Blood specimen 08/10/2015 1:55 PM 015 2:10 (specimen) BLACKENER PM BLACKENER Janice Gaspar MD LAB - MICRO GENERAL ORDERABL ES Performing Organization Address City/[facility]/ZIP [facility] Phon e Number INFECTIOUS DISEASES [address] [place] [address] DIAGNOSTIC LABORATORY, [facility] MICRO RAPID TESTING LAB [address] [place] [phone] [place] [address] INFECTIOUS DISEASE [address] [place] [address] DIAGNOSTIC LABORATORY (ABNORMAL) Blood culture (08/10/2015 11:00 AM BLACKENER) Component Value Ref Test Analysis Performed At [facility] gist Range Method Time Signature Specimen Blood DRAWN IN MICRO RAPID Description DIALYSIS TESTING LAB Special Aerobic and [place] Requests anaerobic bottles [facility] Culture Micro Cultured on the 1st day [...] Blood specimen 08/10/2015 11:00 5 (specimen) AM BLACKENER 11:57 AM BLACKENER Raúl Ramachandran MD LAB - MICRO GENERAL ORDERABL ES Performing Organization Address City/[facility]/ZIP Code Phon e Number INFECTIOUS DISEASES [address] [place] [address] DIAGNOSTIC LABORATORY, [facility] MICRO RAPID TESTING LAB [address] [place] [phone] [facility] [address] [place] [phone] [place] [address] [facility] INFECTIOUS DISEASE [address] [place] [address] DIAGNOSTIC LABORATORY Vancomycin level (08/10/2015 8:24 AM BLACKENER) athologist Signature Vancomycin 10.8 mg/L [facility] Comment: Traditional Dosing therapeutic Range: ?Trough 8-20 mg/L ?Peak 20-50 mg/L Specimen Anatomical Collection Method Collection Time Receive d Time (Source) Location / / Volume Laterality Blood specimen 08/10/2015 8:24 AM 015 8:53 (specimen) BLACKENER AM BLACKENER Janice Gaspar MD LAB - BLOOD ORDERABLES Performing Organization Address City/State/ZIP Code Phon e Number [facility] [address] [place] [address] [phone] [facility] [address] [place] [address], [place] [phone] (ABNORMAL) INR (08/10/2015 8:24 AM BLACKENER) P athologist Signature INR 3.70 (H) 0.86 - 1.14 [facility] Specimen Anatomical Collection Method Collection Time Receive d Time (Source) Location / / Volume Laterality Blood specimen 08/10/2015 8:24 AM 015 8:39 (specimen) BLACKENER AM BLACKENER Hillary Carroll MD LAB - BLOOD ORDERABLES Performing Organization Address City/State/ZIP Code Phon e Number [facility] [address] [place] [phone] [facility] [address] [place] [address], [place] [phone] Hemoglobin A1c (08/10/2015 8:24 AM BLACKENER) Patholo gist Method Time Signature Hemoglobin A1C Below Assay Range 4.3 - 6.0 JEFFRY Lee Canceled, Test credited % DAWIT MATTHEWS CALLED [facility] [address] [place] [address] Specimen Anatomical Collection Method Collection Time Receive d Time (Source) Location / / Volume Laterality Blood specimen 08/10/2015 8:24 AM 015 8:39 (specimen) BLACKENER AM BLACKENER Janice Gaspar MD LAB - BLOOD ORDERABLES Performing Organization Address City/State/ZIP Code Phon e Number [facility] [address] [place] [phone] [facility] [address] [place] [address], [place] [phone] (ABNORMAL) CBC with platelets (08/10/2015 8:24 AM BLACKENER) Analysis Performed At [facility] logist Time Signature WBC 5.3 4.0 - 11.0 [place] 10e9/L [facility] RBC Count 3.05 (L) 4.4 - 5.9 [place] 10e12/L [facility] Hemoglobin 8.2 (L) 13.3 - [place] 17.7 g/dL [facility] Hematocrit 24.8 (L) 40.0 - [place] 53.0 % [facility] MCV 81 78 - 100 [facility] MCH 26.9 26.5 - [place] 33.0 pg [facility] MCHC 33.1 31.5 - [place] 36.5 g/dL [facility] RDW 17.5 (H) 10.0 - [place] 15.0 % [facility] Platelet Count 89 (L) 150 - 450 [place] 10e9/L [facility] Specimen Anatomical Collection Method Collection Time Receive d Time (Source) Location / / Volume Laterality Blood specimen 08/10/2015 8:24 AM 015 8:39 (specimen) BLACKENER AM BLACKENER Janice Gaspar MD LAB - BLOOD ORDERABLES Performing Organization Address City/State/ZIP Code Phon e Number [facility] [address] [phone] [facility] [address] [address], [facility] [[email or web address]] [phone] (ABNORMAL) Basic metabolic panel (08/10/2015 8:24 AM BLACKENER) [facility] gist Method Time Signature Sodium 128 (L) 133 - 144 [place] mmol/L [facility] Potassium 4.1 3.4 - 5.3 [place] mmol/L [facility] Chloride 91 (L) 94 - 109 [place] mmol/L [facility] Carbon Dioxide 18 (L) 20 - 32 [place] mmol/L [facility] Anion Gap 19 (H) 3 - 14 [place] mmol/L [facility] Glucose 110 (H) 70 - 99 [place] mg/dL [facility] Urea Nitrogen 120 (H) 7 - 30 [place] mg/dL [facility] Creatinine 16.10 (H) 0.66 - [place] 1.25 mg/dL [facility] GFR Estimate 3 (L) >60 [place] mL/min/1.[address] Comment: Non GFR Calc GFR Estimate If Black 4 (L) >60 mL/min/1.7m2 F [facility] Comment: GFR Calc Calcium 8.4 (L) 8.5 - 10.1 mg/dL [facility] Specimen Anatomical Collection Method Collection Time Receive d Time (Source) Location / / Volume Laterality Blood specimen 08/10/2015 8:24 AM 015 8:39 (specimen) BLACKENER AM BLACKENER Janice Gaspar MD LAB - BLOOD ORDERABLES Performing Organization Address City/State/ZIP [facility] Phon e Number [facility] [address] [place] [address] [facility] [address] [place] [address], [facility] [[email or web address]] [phone] (ABNORMAL) Glucose by meter (08/09/2015 10:49 PM [...] Signature INR 3.02 (H) 0.86 - 1.14 [facility] Specimen Anatomical Collection Method Collection Time Receive d Time (Source) Location / / Volume Laterality Blood specimen 08/09/2015 4:03 PM 015 4:12 (specimen) CDT PM CDT Janice Gaspar MD LAB - BLOOD ORDERABLES Performing Organization Address City/State/ZIP Code Phon e Number [facility] [address] [phone] [facility] [address] [address], U [phone] (ABNORMAL) Blood culture (08/09/2015 1:02 PM CDT) Component Value Ref Test Analysis Performed At [facility] Lab Range Method Time Signature Specimen Blood Right Arm MICRO RAPID Description TESTING LAB Special Aerobic and [facility] Requests anaerobic bottles [place] [facility] received [place] [facility] Culture Micro Cultured on the 1st day of incubation: Staphylococcus a ureus INFECTIOUS Critical Value/Significant Value, preliminary re sult only, called to and read DISEASE back by Xochilt Ford RN, @ 5397 08.10.2015 BL DIAGNOSTIC Susceptibility testing done on previous specimen LABORATORY (A) Micro Report FINAL 08/12/2015 INFECTIOUS Status DISEASE DIAGNOSTIC LABORATORY Specimen Anatomical Collection Method Collection Time Receive d Time (Source) Location / / Volume Laterality Blood specimen 08/09/2015 1:02 PM 015 1:34 (specimen) CDT PM CDT Janice Gaspar MD LAB - MICRO GENERAL ORDERABL ES Performing Organization Address City/[facility]/ZIP Code Phon e Number INFECTIOUS DISEASES [address] [place] [address] DIAGNOSTIC LABORATORY, [facility] MICRO RAPID TESTING LAB [address] [place] [address] , [address] [id number] INFECTIOUS DISEASE [address] [place] [address], [facility] DIAGNOSTIC LABORATORY (ABNORMAL) Blood culture (08/09/2015 12:55 PM CDT) Component Value Ref Test Analysis Performed At [facility] Lab Range Method Time Signature Specimen Blood Left Arm MICRO RAPID Description TESTING LAB Special Aerobic and [facility] Requests anaerobic bottles [place] [facility] Culture Micro Cultured on the 1st day of i ncubation: Staphylococcus aureus This isolate is INFECTIOUS presumed to be clindamycin resistant based on detection o f inducible DISEASE clindamycin resistance. DIAGN OSTIC Critical Value/Significant Value, preliminary re sult only, called to and read LABORATORY back by Xochilt Ford RN, @ 7285 08.10.2015 BL (Note) POSITIVE for STAPHYLOCOCCUS AUREUS and NEGATIVE for the mecA gene (not MRSA) by Genterpretigene multiplex nucleic acid test. The mecA gene [...] by Esme Reed RN. 11.1.15 @ 0943. (A) Micro Report FINAL 08/12/2015 INFECTIOUS Status [...] MICRO GENERAL ORDERABL ES Performing Organization Address City/State/[facility] Code Phon e Number INFECTIOUS DISEASES [address] [place] [address] DIAGNOSTIC LABORATORY, [facility] MICRO RAPID TESTING LAB [address] [place] [address] INFECTIOUS DISEASE [address] [place] [phone] [place] [address] DIAGNOSTIC LABORATORY (ABNORMAL) Renal panel (08/09/2015 12:50 PM CDT) [facility] Method Time Signature Sodium 132 (L) 133 - 144 [place] mmol/L [facility] Potassium 3.6 3.4 - 5.3 [facility] mmol/L [facility] Chloride 94 94 - 109 [facility] mmol/L [facility] Carbon Dioxide 23 20 - 32 [place] mmol/L [facility] Anion Gap 15 (H) 3 - 14 [facility] mmol/L [facility] Glucose 153 (H) 70 - 99 [facility] mg/dL [facility] Urea Nitrogen 96 (H) 7 - 30 [place] mg/dL [facility] Creatinine 14.00 (H) 0.66 - [place] 1.25 mg/dL [facility] GFR Estimate 4 (L) >60 [place] mL/min/1.[address] Comment: Non GFR Calc GFR Estimate If Black 5 (L) >60 mL/min/1.7m2 F [facility] Comment: GFR Calc Calcium 8.4 (L) 8.5 - 10.1 mg/dL [facility] Phosphorus 2.3 (L) 2.5 - 4.5 mg/dL [facility] Albumin 3.3 (L) 3.4 - 5.0 g/dL [facility] Specimen Anatomical Collection Method Collection Time Receive d Time (Source) Location / / Volume Laterality 08/09/2015 12:50 08/09/2015 1:34 PM CDT PM CDT Janice Gaspar MD LAB - BLOOD ORDERABLES Performing Organization Address City/State/ZIP Code Phon e Number [facility] [address] [place] [address] [facility] [address] [address], [place] [phone] (ABNORMAL) Platelet count (08/09/2015 12:50 PM CDT) P athologist Signature Platelet Count 99 (L) 150 - 450 [place] [address]e9/L [facility] Specimen Anatomical Collection Method Collection Time Receive d Time (Source) Location / / Volume Laterality Blood specimen 08/09/2015 12:50 5 1:34 (specimen) PM CDT PM CDT Janice Gaspar MD LAB - BLOOD ORDERABLES Performing Organization Address City/State/ZIP Code Phon e Number [facility] [address] [place] [address] [phone] [facility] [address] [place] [address], [place] [phone] (ABNORMAL) Procalcitonin (08/09/2015 12:50 PM CDT) Analysis Performed At Patho logist Time Signature Procalcitonin 32.46 (HH) ng/ml [facility] Comment: >/= 10.00 ng/ml ?? Very high [...] Address City/State/ZIP Code Phon e Number [facility] [address] [address] [facility] [address] [place] [address], U [phone] documented in this encounter Visit Diagnoses Not on filedocumented in this encounter Administered Medications Inactive Administered Medications - up to 3 most recent administrations Medication Order MAR Action Action Date Dose Rate Site heparin 2,500 units in Given 08/13/2015 6:02 252.5 mLs Operative 250 mL 0.9% NaCl PM BLACKENER Site/Surgical S ite PRN, Starting on Tue08/13/15 at 1802, Intra-procedure povidone-iodine (BETADINE) Given 08/13/2015 8:21 PM 50 mLs Operative Site/Surgical 10 % external solution BLACKENER Site PRN, Starting on Tue08/13/15 at 2021, Intra-procedure sodium chloride 0.9% Given 08/13/2015 6:15 PM 1,000 mLs Operative (bottle) irrigation BLACKENER Site/Surgical S ite PRN, Starting on Tue08/13/15 at 1802, Intra-procedure Given 08/13/2015 6:02 PM BLACKENER 1,000 mLs Opera tive Site/Surgical Site documented in this encounter Active and Recently Administered Medications Times are shown in BLACKENER. Scheduled Medication Order 08/15/2015 08/16/2015 08/17/2015 B wszwhbh-M-ectfo acid (NEPHROCAPS) capsule 1 mg (CANC ELED) [...] Provider: Mona Lebron)1157 (Given - Provider: Julienne Wesley RN)1625 (Given - Provider: Chantale Sotelo, LINDA)1800 (Canceled [...] er day on Tue), First dose on Tue08/16/15 at 1800, Give post dialysis on Saturdays, Indications: Sepsis cholecalciferol (vitamin D) tablet 2,000 Units (CANCEL ED) 0801 (Given - Provider: Beatris Fish RN) 0754 (Given - Provider: Mona adam)0831 (Canceled Entry - Provider: Mona Lebron) 0810 (Given - Provider: Mona Lebron) 2,000 Units, Oral, DAILY, First dose on Tue08/10/15 at 0900 epoetin mauricio (EPOGEN,PROCRIT) injection 6,000 [...] HD) 3,000 Units (3 mL), Intracatheter, ONCE, Padmaja 08/14/15 at 1200, For 1 dose, Line lock [...] (Give n - Provider: Caitlyn Sherwood RN) 184 (Given - Provider: Chantale lawrence RN)1999 (Canceled Entry - Provider: Chantale Sotelo RN) 40 mg, Oral, EVERY EVENING, First dose on Tue08/10/15 at 2000 sodium chloride (PF) 0.9% PF flush 3 mL (CANCELED) 075 6 (Given - Provider: Beatris Fish, LINDA)1230 (Given - Provider: Beatris Fish, RN)2035 (Given - Provider: Caitlyn Sherwood RN) 0600 (Not Given - Provider: Rachel Flores RN - Reason: Patient sleeping)1458 (Canceled Entry - Provider: Harriett Conklin, LINDA)2100 (Canceled Entry - Provider: Chantale Sotelo RN) 0631 (Not Given - Provider: Suzanna Velasquez RN - Reason: Patient sleeping)1300 (Canceled Entry - Provider: Orders Generic Provider - Comment: Automatically canceled at discontinue of medication order) 3 mL, Intracatheter, EVERY 8 HOURS, Firs t dose on 08/09/15 at 1300, And Q1H PRN, to lock peripheral IV dormant line. warfarin (COUMADIN) tablet 5 mg (COMPLETED) 172 (Give n - Provider: Caitlyn Sherwood RN) 5 mg, Oral, ONCE AT 6PM, 08/15/15 at 1800, For 1 dose warfarin (COUMADIN) tablet 5 mg (COMPLETED) 1843 (Given - Provider: Chantale Sotelo, LINDA) 5 mg, Oral, ONCE AT 6PM, 08/16/15 at 1800, For 1 dose PRN Medication Order 08/15/2015 08/16/2015 08/17/2015 acetaminophen (TYLENOL) tablet 650 mg (CANCELED) 0232 (Given - Provider: Rachel Flores, RN) 0230 (Given - Provider: Suzanna webber RN) 650 mg, Oral, EVERY 4 HOURS PRN, mild pa in, Starting 08/09/15 at 1242, Alternate ibuprofen (if ordered) with acetaminophen. Not to exceed 4 grams/day. Maximum acetaminophen dose from all sources = 75 mg/kg/day not to exceed 4 grams/day. documented in this encounter Care Teams Certified Hearing Instrument Dispenser Relationship Specialty Start Date End Date Cornell Butt PCP - General 06/24/11 documented as of this encounter
--- OUTSIDE RECORDS SUMMARY | 2022-09-01 20:19 | XMS_ITS | Encounter Summary ---
:1965 Author Organization [facility] Address [address] [facility] [facility] [place] [address] Care Team Providers Name Role Phone Preet Huff Primary Care Provider Encounter Details Date Type Department Care Team Description 08/05/2014 Orders Only [facility] Jaxon Saravia Renal fa ilure (Primary [facility] [place] MD Dx) [address] [place] [address] [place] [address] [phone] Social History Tobacco Use Types Packs/Day Years Used Date Smoking Tobacco: Never Smokeless Tobacco: Never Alcohol Use Standard Drinks/Week Comments No 0 (1 standard drink = 0.6 oz pure alcoho l) Sex Assigned at Date Recorded Not on file documented as of this encounter Plan of Treatment Not on filedocumented as of this encounter Visit Diagnoses Diagnosis Renal failure - Primary Renal failure, unspecified documented in this encounter Care Teams Expansion Joint Finisher Relationship Specialty Start Date End Date Preet Huff PCP - General 06/24/11 documented as of this encounter
--- OUTSIDE RECORDS SUMMARY | 2022-09-01 20:20 | XMS_ITS | Encounter Summary ---
:1965 Author Organization [place] Address [address] [place] [address] Care Team Providers Name Role Phone Preet Huff Primary Care Provider Reason for Referral Home Health Therapies & Aides Specialty Diagnoses / Procedures Referred By Contact Refer red To Contact Jaxon Buenrostro rd, MD [address] [place] [id number] Referral ID Status Reason Start Date Expiration Date Visits Requ ested Visits Authorized Reason for Visit Auth/Cert - Closed Specialty Diagnoses / Procedures Referred By Contact Refer red To Contact Surgery Diagnoses dehiscence surgical incision Sh Periop Services Procedures REVISION FISTULA ARTERIOVENOUS LOWER EXTREMITY COMBINED IRRIGATION AND DEBRIDEMENT LOWER EXTREMITY [address] [place] [phone] Phone: Referral ID Status Reason Start Date Expiration Date Visits Requ ested Visits Authorized [id number] Closed 1 1 Encounter Details Date Type Department Care Team Description 06/04/2014 - Hospital Encounter [facility] Jaxon Buenrostro sential hypertension, benign (Primary Dx); 06/20/2014 Adriano Oviedo MD [place]; Intermediate [facility] [id number] Clotted renal dialysis AV gr aft, initial encounter (H) [address] [place] [id number] [place] [id number] Social History Tobacco Use Types Packs/Day Years Used Date Smoking Tobacco: Never Smokeless Tobacco: Never Alcohol Use Standard Drinks/Week Comments No 0 (1 standard drink = 0.6 oz pure alcoho l) Sex Assigned at Date Recorded Not on file documented as of this encounter Last Filed Vital Signs Vital Sign Reading Time Taken Comments Blood Pressure 170/80 06/20/2014 12:00 PM CDT Pulse 78 06/20/2014 12:00 PM CDT Temperature 36.4 ??C (97.6 ??F) 06/20/2014 11:30 AM CDT Respiratory Rate 18 06/20/2014 11:30 AM CDT Oxygen Saturation 99% 06/20/2014 12:00 AM CDT Inhaled Oxygen Concentration - - Weight 99.2 kg (218 lb 11.1 06/19/2014 2:18 AM standing wt. oz) CDT Height 162.6 cm (5' 4) 06/04/2014 1:22 PM CDT Body Mass Index 37.54 06/04/2014 1:22 PM CDT documented in this encounter Discharge Summaries Jaxon Buenrostro MD - 06/25/2014 12:46 PM CDT HISTORY: Julio Cesar Sandhu is a 49-year-old patient with multiple access problems including no upper extremity access sites available has a functioning left thigh loop PTFE bypass graft. This had been functioning well with dialysis unit and noted a probable pseudoaneurysm at a site that we had recent repaired for another pseudoaneurysm with a patch angioplasty. We felt the patient needed to be admitted for exploration of this area. HOSPITAL COURSE: The patient was admitted on 06/04/14. He was taken to the operating room where undera general anesthetic we opened up the lateral aspect of the left thigh PTFE dialysis graft. There was indeed a pseudoaneurysm present from an old access needle puncture site. This was easily repaired with a mattress Prolene suture. Cultures were obtained of the area. Gram stain revealed evidence of bacteria. We therefore left the wound open. The patient was initially treated with intravenous vancomycin. Cultures came back as methicillin-sensitive Staph aureus and he was strange to intravenous nafcillin. Daily dressing changes with Aquacel AG were performed on the site. We were able still continue using this access at the noninvolved area medially with no difficulty. We then placed a Silver GranuFoam negative pressure VAC dressing on the wound once we had some granulation tissue overlying this, hoping to heal the wound by secondary intent and preserve this access due to very limited other options being available to him (right thigh access has also failed). We had obvious concerns about this as the PTFE graft may have been infected (we c ultured the adjacent hematoma and not obviously the graft itself) and that this could result in an ongoing infection or perhaps even graft disruption. Because of this, we kept him in the hospital with the negative pressure dressing until the graft wascovered over with granulation tissue and no visible sutures were noted. The wound appeared very clean at the time of discharge with granulation tissue almost up to the surface. He underwent several bedside debridements associated with the VAC changed to hasten healthy healing. The patient had persistent hyperkalemia during his hospitalization along with problems with his blood pressure. There was a concern that this could be related to the graft but I thought it was unlikely. We did perform a repeat duplex ultrasound revealing that the graft was widely patent, particularly the venous outflow. We felt this was most likely related to his diet and high potassium intake. This was adjusted with improvement. The patient was followed by Dr. Job Jorge of our Nephrology Service along with his associates for his maintenance, hemodialysis and other issues. They did adjust his blood pressure medications and recommended antibiotics at the time of discharge. It was felt he would a benefit to receive intravenousAncef at the time of his dialysis runs. The patient was ready for discharge to home with home health care on 06/20/14. DISCHARGE MEDICATIONS: 1. Metoprolol 100 mg b.i.d. 2. Minoxidil 5 mg b.i.d. 3. Epogen 10,000 units with dialysis. 4. Ancef 1 gram upon completion of dialysis runs. 5. Dialysis vitamin supplements. 6. Simvastatin 40 mg each day at bedtime. FINAL DIAGNOSIS: 1. 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 a. Operative debridements of the local wound care with negative pressure dressing b. Intravenous antibiotics. 2. Hypertension. 3. Hyperkalemia. PLAN: The patient will be discharged to home. He will change the dressings every other day with Aquacel AG until it is completely epithelialized over. There is certainly a risk that this may have an ongoing infection or possibly even bleeding that could be quite significant, but as mentioned our alternatives for access are quite limited and therefore we are hoping to salvage this graft. JAXON BUENROSTRO MD MT: #[id number] Name: JULIO CESAR SANDHU MRN: [id number] Account: [id number] : 1965 Admit Date: Discharge Date: 06/20/2014 Document: [id number] cc: [facility] documented in this encounter Medications at Time of Discharge Medication Sig Dispensed Refills Start Date End Date Cholecalciferol (VITAMIN Take 2,000 Units by 0 D3 PO) mouth every evening b ixsenuy-J-laagq acid Take 1 capsule by 0 03/04/2016 [...] documented as of this encounter Progress Notes Danial Ragland RN - 06/21/2014 1:27 PM CDT Per charge nurse, Thelma (pt's relative) called reporting that [facility] has not called pt yet. I spoke wt Jessie Perez RN at [facility] and she states she can't get hold of the pt andleft a message at pt's phone number. I called and spoke wt Thelma and instructed her to call Jessie at [phone]. Thelma states she will call Jessie. Also DC orders faxed again to Jessie at [facility] fax # . Nely Crocker LSW - 06/20/2014 10:32 AM CDT SW: I: SW following for d/c planning. Pt will likely d/c today following dialysis run. Pt transport originally arranged for 1100, however has been rescheduled for 1500. SW in contact with pt BANKRUPTCY ATTORNEY home care agency to update on d/c today and inquire about agency's ability to provide skilled services. Unfortunately, [facility] does not provides any skilled services, only BANKRUPTCY ATTORNEY, [employer] REMOVER, and homemaker services. SW left message with [facility] P: to make referral for RN services for dressing changes. P: SW to follow. Anticipate d/c today at 1500 via [facility] transport with home care services and resumption of BANKRUPTCY ATTORNEY services. ADDENDUM: Referral placed with [facility] for home RN services. D/C orders faxed to . Nely Crocker, FILM DEVELOPER, [facility] [id number] Job Jorge MD - 06/20/2014 10:17 AM CDT Renal Medicine Progress Note Assessment/Plan: 1. ESRD: -Cont. TTS IHD. Pt was seen on dialysis. He is tolerating it well. -No graft stenosis on duplex ultrasound 2. Persistent Hyperkalemia: -Likely due to diet. May need to d/c ARB. 3. Anemia: Had JOHANNA yesterday. Continue Epogen at outpatient HD unit. 4. HTN: Should continue to get better with more fluid removal. 5. MSSA infection: on Nafcillin -We will arrange for IV Ancef to be given after dialysis. Alternative would be to give po keflex but I think, since the wound is so close to the graft site, it would be better to give IV ancef. Interval History: No acute event o/n. Feels fine. Nos SOB or chest pain. No fever/chill. Medications and Allergies: ??? epoetin mauricio (EPOGEN,PROCRIT) inj ESRD 10,000 Units Intravenous See Admin Instructions ??? heparin (porcine) 500 Units Hemodialysis Machine Once in dialysis ??? sodium chloride 0.9 % 250 mL Hemodialysis Machine Once ??? minoxidil 5 mg Oral BID ??? calcium acetate 667 mg Oral TID w/meals ??? HEParin 5,000 Units Subcutaneous Q8H ??? losartan 100 mg Oral Daily ??? metoprolol 100 mg Oral BID ??? - MEDICATION INSTRUCTIONS for Dialysis Patients - Does not apply See Admin Instructions ??? nafcillin 1 g Intravenous Q6H ??? insulin aspart 1-3 Units Subcutaneous TID AC ??? insulin aspart 1-3 Units Subcutaneous At Bedtime ??? B gmnbhfz-N-ribau acid 1 capsule Oral At Bedtime ??? bisacodyl 10 mg Oral User Specified ??? cholecalciferol (vitamin D) tablet 1,000 Units 1,000 Units Oral Daily ??? simvastatin 40 mg Oral At Bedtime ??? sodium chloride (PF) 3 mL Intravenous Q8H Allergies Allergen Reactions ??? Aspirin [Dihydroxyaluminum Aminoacetate] GI Disturbance GI bleeding Physical Exam: Vitals were reviewed Heart Rate: 88, Blood pressure 171/84, pulse 80, temperature 97.6 ??F (36.4 ??C), temperature sourceAxillary, resp. rate 16, height 1.626 m (5' 4), weight 99.2 kg (218 lb 11.1 oz), SpO2 99 %. Wt Readings from Last 3 Encounters: 06/19/14 99.2 kg (218 lb 11.1 oz) 06/19/14 99.2 kg (218 lb 11.1 oz) 05/08/14 83.779 kg (184 lb 11.2 oz) Intake/Output Summary (Last 24 hours) at 06/20/14 1017 Last data filed at 06/19/14 1614 Gross per 24 hour Intake 500 ml Output 3000 ml Net -2500 ml GENERAL APPEARANCE: pleasant, NAD, alert HEENT: Eyes/ears/nose/neck grossly normal RESP: Ctab, no wheeze or crackle CV: RRR, nl S1/S2, no mgr ABDOMEN: obese, soft, NT EXTREMITIES/SKIN: no rashes/lesions on observed skin; 1+ Edema Graft site looks clean. Data: CBC RESULTS: Recent Labs Lab 06/20/14 0808 06/19/14 1009 06/19/14 0720 06/17/14 0731 06/16/14 0730 06/15/14 0734 06/14/14 0725 HGB 7.7* 7.7* -- 7.2* -- 7.6* 7.6* PLT -- -- 173 -- 164 -- -- Basic Metabolic Panel: Recent Labs Lab 06/20/14 0808 06/19/14 1009 06/18/14 0515 06/17/14 1855 06/17/14 1800 06/17/14 0731 06/15/14 0734 NA -- -- -- 132* -- 135 133 POTASSIUM 4.9 4.4 5.5* 6.3* 6.2* 5.8* 5.9* CHLORIDE -- -- -- 97 -- 99 96 CO2 -- -- -- 27 -- 28 26 BUN -- -- -- 62* -- 56* 65* CR -- -- -- 8.78* -- 8.19* 7.87* GLC -- -- -- 129* -- 82 90 JON -- -- -- 8.6 -- 9.1 9.0 INR Recent Labs Lab 06/20/14 0930 06/20/14 0808 06/19/14 0720 06/18/14 0515 INR 1.97* Test canceled by PCU/Clinic Charge creditedspoke with Ariadne in dialysis and he had aalready received heparin 2.40* 2.17* Attestation: I have reviewed today's relevant vital signs, notes, medications, labs and imaging. Job Jorge MD [facility] - Nephrology Office phone :[phone] Pager: [phone] Jaxon Buenrostro MD - 06/20/2014 7:40 AM CDT Vascular Surgery Progress Note S:No complaints. O: Vitals: BP Min: 128/80 Max: 195/98 Temp Av.9 ??F (36.6 ??C) Min: 97.3 ??F (36.3 ??C) Max: 98.2 ??F (36.8 ??C) Pulse Av Min: 80 Max: 96 Physical Exam:Left thigh dressing intact. To get dialysis today. Assessment/Plan: Will change dressing after dialysis. ? Home today on po antibiotics. Wm. Rani HARPER Roberta Schmitz RN - 06/20/2014 7:30 AM CDT POTASSIUM 4.4 06/19/2014 HGB 7.7 06/19/2014 Rec'd pt per w/c acc'd by transport team. RIGHT THIGH GRAFT cannulated with 15 Ga needles with no difficulty. Good circulation to graft leg. Time out taken. Pt ran 3 hours on a K 2 bath, with 3L removed. Blood flow rate of 400 was obtained. PRE-WEIGHT:99.2kgs, EDW 82.5kgs, POST-WT 96.2kgs. Complications: None. Education regarding ESRD given to patient with good understanding. Total Heparin given: 2000 units. Meds given: None--Epogen given yesterday. Dr. Jorge visited pt during run. Transducers checked Q 15 minutes, remain clear throughout Rx. Total blood volume processed:65.8L Hemostasis of needle sites achieved after 30 minutes. Patient dialyzes at [facility] T-Th-Tue. POST ASSESSMENTS: Skin warm and dry, alert, denies discomfort, Lungs clear, Resp rate regular, apical rate regular. No edema. See flowsheet in [facility] for further details. Report given to Marichuy Bishop RN. [facility] Roberta Schmitz RN - 06/20/2014 7:29 AM CDT DIALYSIS PRE-ASSESSMENT: All machine safety checks completed and passed. Total chlorine checks less than 0.1ppm All connections secured, saline line double clamped. Venous and arterial parameters set Good circulation to left graft leg Consent signed for Dialysis Rx. LOC:alert Lungs clear Skin warm and dry Report rec'd from LINDA Garza RN [facility] Stacy Del Rio RN - 06/19/2014 3:13 PM CDT DIALYSIS PROCEDURE NOTE POTASSIUM 4.4 06/19/2014 HGB 7.7 06/19/2014 Weight: 99.2 kg (218 lb 11.1 oz) (standing wt.) Pt dialyzed for 3 hrs via LLF, BFR 400 with a net volume removal of 3 L on K3 bath. Heparin given on run: 0 units Complications: none Medications given: Epogen to make up for missed dose on Monday 06/[address] Jorge during treatment EDW 82.5 kg, post run weight 96.2 kg Pt received education on procedure and ESRD while on dialysis. See [facility] dialysis flowsheet for details of dialysis run and post run report hand off. Transducer protector checked Q 15 minutes, dry at each check Pt arrived to dialysis via wc, left via wc Pt dialyzes TTHSat in [facility] alarms on for run Will dialyze 06/20 at 0730 Post run pt assessment charted in [facility] on [facility] flowsheet Nely Crocker LSW - 06/19/2014 11:28 AM CDT SW: I: SW following for d/c planning. Pt will have dialysis run today at 1300. Pt utilizes [employer] transport [facility] . SW in contact with [employer], was informed that transport is available up until 1500. As pt will not be ready for d/c until earliest 1800, SW as arranged transport to pickle sorter pt from his room tomorrow, 06/20 at 1100. SW in contact with pt Aunt/BANKRUPTCY ATTORNEY, Thelma, withupdate. D/c orders faxed to [facility] F: [phone]. P: SW to follow. Nely Crocker, FILM DEVELOPER, [employer] [id number] Caryn Bajwa - 06/19/2014 11:00 AM CDT SPIRITUAL HEALTH SERVICES Progress Note [facility] Visited pt as a follow up to a previous visit. Pt had several coloring books and crayons and SH looked through the colorings with pt. Pt told SH he had a islam and that he liked it. When asked what he liked most about islam pt said praying. SH asked if pt wanted to pray and pt motioned for SH to sit with him. SH prayed with pt and pt made gestures of appreciation. SH will remain available to pt. Caryn Bajwa Pillowcase Cleaner Pager [phone] [facility] Job Jorge MD - 06/19/2014 9:55 AM CDT Renal Medicine Progress Note Assessment/Plan: 1. ESRD: -Cont. TTS IHD. -Plan for extra HD run today for more UF. -No graft stenosis on duplex ultrasound 2. Persistent Hyperkalemia: -Likely due to diet -Checking preHD K 3. Anemia: Had one unit PRBC yesterday. Checking Hgb. 4. HTN: BP remains high. Will do more UF with HD today. 5. MSSA infection: on Nafcillin -Clindamycin would be a good choice for home therapy. Will side-curb ID. Interval History: As usual, the patient does not have any c/o. Denies SOB and pain. Unable to complete HD yesterday. Patient's bp remains quite high. He still has a lot of volume on board. Medications and Allergies: ??? sodium chloride 0.9 % 250 mL Hemodialysis Machine Once ??? epoetin mauricio (EPOGEN,PROCRIT) inj ESRD 8,000 Units Intravenous Once ??? minoxidil 5 mg Oral BID ??? calcium acetate 667 mg Oral TID w/meals ??? HEParin 5,000 Units Subcutaneous Q8H ??? losartan 100 mg Oral Daily ??? metoprolol 100 mg Oral BID ??? - MEDICATION INSTRUCTIONS for Dialysis Patients - Does not apply See Admin Instructions ??? nafcillin 1 g Intravenous Q6H ??? insulin aspart 1-3 Units Subcutaneous TID AC ??? insulin aspart 1-3 Units Subcutaneous At Bedtime ??? B cilltca-Z-fwbtf acid 1 capsule Oral At Bedtime ??? bisacodyl 10 mg Oral User Specified ??? cholecalciferol (vitamin D) tablet 1,000 Units 1,000 Units Oral Daily ??? simvastatin 40 mg Oral At Bedtime ??? sodium chloride (PF) 3 mL Intravenous Q8H Allergies Allergen Reactions ??? Aspirin [Dihydroxyaluminum Aminoacetate] GI Disturbance GI bleeding Physical Exam: Vitals were reviewed Heart Rate: 88, Blood pressure 195/98, pulse 90, temperature 97.3 ??F (36.3 ??C), temperature sourceOral, resp. rate 18, height 1.626 m (5' 4), weight 99.2 kg (218 lb 11.1 oz), SpO2 96 %. Wt Readings from Last 3 Encounters: 06/19/14 99.2 kg (218 lb 11.1 oz) 06/19/14 99.2 kg (218 lb 11.1 oz) 05/08/14 83.779 kg (184 lb 11.2 oz) Intake/Output Summary (Last 24 hours) at 06/19/14 0955 Last data filed at 06/19/14 0500 Gross per 24 hour Intake 320 ml Output 3000 ml Net -2680 ml GENERAL APPEARANCE: NAD HEENT: Some periorbital edema RESP: Poor airflow. Mild exp wheezes CV: RRR, nl S1/S2, +murmur ABDOMEN: obese, soft, NT EXTREMITIES/SKIN: no rashes/lesions on observed skin; 2+ edema L thigh graft + bruit. Site is clean. Data: CBC RESULTS: Recent Labs Lab 06/19/1471906/17/14 0731 06/16/14 0730 06/15/14 0734 06/14/14 0725 06/13/14 0655 HGB -- 7.2* -- 7.6* 7.6* 7.6* PLT 173 -- 164 -- -- 152 Basic Metabolic Panel: Recent Labs Lab 06/18/14 0515 06/17/14 1855 06/17/14 1800 06/17/14 0731 06/15/14 0734 06/14/14 0725 NA -- 132* -- 135 133 -- POTASSIUM 5.5* 6.3* 6.2* 5.8* 5.9* 5.5* CHLORIDE -- 97 -- 99 96 -- CO2 -- 27 -- 28 26 -- BUN -- 62* -- 56* 65* -- CR -- 8.78* -- 8.19* 7.87* -- GLC -- 129* -- 82 90 -- JON -- 8.6 -- 9.1 9.0 -- INR Recent Labs Lab 06/19/1471906/18/1451406/17/14 0731 06/16/14 0730 INR 2.40* 2.17* 1.93* 1.88* Attestation: I have reviewed today's relevant vital signs, notes, medications, labs and imaging. Job Jorge MD [facility] Nephrology Office phone :[phone] Pager: [phone] Jaxon Buenrostro MD - 06/19/2014 7:08 AM CDT Vascular Surgery Progress Note - G4 Doing well without complaints this am. Eager to return home. AF/VSS NIWB, RRR US shows patent graft Right thigh loop graft with good thrill, base of wound with good granulation, graft not visible. Vacreplaced with aquacell ag. Cont daily aquacell ag dressings. OK to d/c to home on PO abx and warfarin. Emi Benedict, G4 Surgery Resident [phone] Staff: Left thigh wound clean. VAC discontinued. Aquacel/Tegaderm QOD to site. PO Cipro. Jaxon Buenrostro MD Josue Byrnes RN - 06/18/2014 7:04 PM CDT POTASSIUM 5.5 06/18/2014 HGB 7.2 06/17/2014 220 lbs 7.36 oz Patient dialyzed for 2.5 hours via right fem. graft against a K-2 bath with a net fluid removal of 3Liters. Patient was seen by Dr. jorge during the treatment. Total heparin received during treatment:none units. Meds given during the treatment:none, system clotted at 2.5 hours before able to give Complications:system cotted at 2.5 hours Hepatitis B status:antigen neg and immune 06/08/2014 Procedure and ESRD education reviewed with the patient. Pre-run report received fromtahmina pantoja r.n., post run report given to tahmina pantoja r.n.. See flowsheet in [employer] for run details. Job Jorge MD - 06/18/2014 10:32 AM CDT Renal Medicine Progress Note Assessment/Plan: 1. ESRD: -Cont. TTS IHD -HD after fistulogram 2. Persistent Hyperkalemia: -K=5.5 with kayexalate -Will evaluate graft for stenosis-->recirculation. If graft is fine, then will stop ARB. 3. Anemia -Plan to transfuse one unit prbc with dialysis -JOHANNA with HD 4. HTN: Blood pressure is on the high side. Will be more aggressive with UF. 5. MSSA infection: on Nafcillin. Interval History: Sitting up in the chair. Breathing okay. No fever. No n/v. Awaiting fistulogram at noon. Medications and Allergies: ??? sodium chloride 0.9 % 250 mL Hemodialysis Machine Once ??? epoetin mauricio (EPOGEN,PROCRIT) inj ESRD 8,000 Units Intravenous Once ??? warfarin 2.5 mg Oral ONCE at 18:00 ??? minoxidil 5 mg Oral BID ??? calcium acetate 667 mg Oral TID w/meals ??? HEParin 5,000 Units Subcutaneous Q8H ??? losartan 100 mg Oral Daily ??? metoprolol 100 mg Oral BID ??? - MEDICATION INSTRUCTIONS for Dialysis Patients - Does not apply See Admin Instructions ??? nafcillin 1 g Intravenous Q6H ??? insulin aspart 1-3 Units Subcutaneous TID AC ??? insulin aspart 1-3 Units Subcutaneous At Bedtime ??? B bcemlfd-T-ewunm acid 1 capsule Oral At Bedtime ??? bisacodyl 10 mg Oral User Specified ??? cholecalciferol (vitamin D) tablet 1,000 Units 1,000 Units Oral Daily ??? simvastatin 40 mg Oral At Bedtime ??? sodium chloride (PF) 3 mL Intravenous Q8H Allergies Allergen Reactions ??? Aspirin [Dihydroxyaluminum Aminoacetate] GI Disturbance GI bleeding Physical Exam: Vitals were reviewed Heart Rate: 77, Blood pressure 173/79, pulse 88, temperature 97.7 ??F (36.5 ??C), temperature sourceOral, resp. rate 16, height 1.626 m (5' 4), weight 100 kg (220 lb 7.4 oz), SpO2 96 %. Wt Readings from Last 3 Encounters: 06/18/14 100 kg (220 lb 7.4 oz) 06/18/14 100 kg (220 lb 7.4 oz) 05/08/14 83.779 kg (184 lb 11.2 oz) Intake/Output Summary (Last 24 hours) at 06/18/14 1032 Last data filed at 06/18/14 0500 Gross per 24 hour Intake 740 ml Output 0 ml Net 740 ml GENERAL APPEARANCE: pleasant, NAD, alert. Slow HEENT: Eyes/ears/nose/neck grossly normal RESP: Poor airflow. No crackles or wheezes CV: RRR, nl S1/S2, no m/r/g ABDOMEN: o/s/nt/nd, bs present EXTREMITIES/SKIN: no rashes/lesions on observed skin; 2+ edema L thigh AVG with good bruit. Data: CBC RESULTS: Recent Labs Lab 06/17/1431 06/16/14 0730 06/15/14 0734 06/14/14 0725 06/13/14 0655 06/11/14 1300 HGB 7.2* -- 7.6* 7.6* 7.6* 8.1* PLT -- 164 -- -- 152 -- Basic Metabolic Panel: Recent Labs Lab 06/18/1451406/17/14 1855 06/17/14 1800 06/17/14 0731 06/15/14 0734 06/14/14 0725 NA -- 132* -- 135 133 -- POTASSIUM 5.5* 6.3* 6.2* 5.8* 5.9* 5.5* CHLORIDE -- 97 -- 99 96 -- CO2 -- 27 -- 28 26 -- BUN -- 62* -- 56* 65* -- CR -- 8.78* -- 8.19* 7.87* -- GLC -- 129* -- 82 90 -- JON -- 8.6 -- 9.1 9.0 -- INR Recent Labs Lab 06/18/1451406/17/14 0731 06/16/14 0730 06/15/14 0734 INR 2.17* 1.93* 1.88* 1.63* Attestation: I have reviewed today's relevant vital signs, notes, medications, labs and imaging. Job Jorge MD [facility] - Nephrology Office phone :[phone] Pager: [phone] Jaxon Buenrostro MD - 06/18/2014 10:12 AM CDT Vascular Surgery Progress Note S:No complaints O: Vitals: BP Min: 151/81 Max: 188/91 Temp Av ??F (36.7 ??C) Min: 97.5 ??F (36.4 ??C) Max: 98.5 ??F (36.9 ??C) Pulse Av.8 Min: 79 Max: 88 Physical Exam:VAC working well Assessment/Plan:Plan to remove VAC after today's dialysis and go to [facility] for home. Plan discharge on po antibiotics ? Levaquin. Addendum: Duplex of PTFE reveals no significant stenosis of the inflow or outflow. Thus no need for fistulogram. Wm. Rani HARPER Job Jorge MD - 06/17/2014 12:25 PM CDT Renal Medicine Progress Note Assessment/Plan: ESRD: -cont. TTS IHD, plan for dialysis p fistulogram tomorrow Hyperkalemia: -kayexalate 15 grams. Check K again later today -will check fistulogram tomorrow. NPO, except meds p midnight. Anemia: -Transfuse 1 unit prbc tomorrow with dialysis -JOHANNA with HD HTN: Blood pressure is on the high side. Will be more aggressive with UF. Interval History: Patient is doing well. Has some facial swelling. Denies shortness. No pain. No fever. Medications and Allergies: ??? warfarin 4 mg Oral ONCE at 18:00 ??? sodium polystyrene 15 g Oral Once ??? minoxidil 5 mg Oral BID ??? calcium acetate 667 mg Oral TID w/meals ??? HEParin 5,000 Units Subcutaneous Q8H ??? losartan 100 mg Oral Daily ??? metoprolol 100 mg Oral BID ??? - MEDICATION INSTRUCTIONS for Dialysis Patients - Does not apply See Admin Instructions ??? nafcillin 1 g Intravenous Q6H ??? insulin aspart 1-3 Units Subcutaneous TID AC ??? insulin aspart 1-3 Units Subcutaneous At Bedtime ??? B bvdminx-R-zffgd acid 1 capsule Oral At Bedtime ??? bisacodyl 10 mg Oral User Specified ??? cholecalciferol (vitamin D) tablet 1,000 Units 1,000 Units Oral Daily ??? simvastatin 40 mg Oral At Bedtime ??? sodium chloride (PF) 3 mL Intravenous Q8H Allergies Allergen Reactions ??? Aspirin [Dihydroxyaluminum Aminoacetate] GI Disturbance GI bleeding Physical Exam: Vitals were reviewed Heart Rate: 84, Blood pressure 151/81, pulse 79, temperature 98.2 ??F (36.8 ??C), temperature sourceOral, resp. rate 16, height 1.626 m (5' 4), weight 97.8 kg (215 lb 9.8 oz), SpO2 97 %. Wt Readings from Last 3 Encounters: 06/13/14 97.8 kg (215 lb 9.8 oz) 06/13/14 97.8 kg (215 lb 9.8 oz) 05/08/14 83.779 kg (184 lb 11.2 oz) Intake/Output Summary (Last 24 hours) at 06/17/14 1225 Last data filed at 06/17/14 0748 Gross per 24 hour Intake 1660 ml Output 0 ml Net 1660 ml GENERAL APPEARANCE: pleasant, NAD, alert HEENT: Some millicent-orbital edema RESP: lungs cta b c good efforts, no crackles, rhonchi or wheezes CV: RRR, nl S1/S2, no m/r/g ABDOMEN: o/s/nt/nd, bs present EXTREMITIES/SKIN: 2+ edema. Wound vac in place. Left thigh graft +thrill Data: CBC RESULTS: Recent Labs Lab 06/17/14 0731 06/16/14 0730 06/15/14 0734 06/14/14 0725 06/13/14 0655 06/11/14 1300 HGB 7.2* -- 7.6* 7.6* 7.6* 8.1* PLT -- 164 -- -- 152 -- Basic Metabolic Panel: Recent Labs Lab 06/17/14 0731 06/15/14 0734 06/14/14 0725 06/13/14 0655 06/11/14 1300 NA 135 133 -- -- -- POTASSIUM 5.8* 5.9* 5.5* 6.3* 3.7 CHLORIDE 99 96 -- -- -- CO2 28 26 -- -- -- BUN 56* 65* -- -- -- CR 8.19* 7.87* -- -- -- GLC 82 90 -- -- -- JON 9.1 9.0 -- -- -- INR Recent Labs Lab 06/17/14 0731 06/16/14 0730 06/15/14 0734 06/14/14 0725 INR 1.93* 1.88* 1.63* 1.75* Attestation: I have reviewed today's relevant vital signs, notes, medications, labs and imaging. Job Jorge MD [facility] Nephrology Office phone :[phone] Pager: [phone] Georgia Tanner MACHINERY RIGGER - 06/17/2014 11:43 AM CDT 06/17/14 1127 General Information Onset Date 06/04/14 Start of Care Date 06/16/[address] Emerson Patient Profile Review See Profile for full history and prior level of function Patient/Family Goals Statement None stated. Swallowing Evaluation Videofluoroscopic evaluation Behaviorial Observations Impulsive;Confused Mode of current nutrition Oral diet Type of oral diet Dysphagia diet level 3;Thin liquid Comments Patient seen for video swallow study due to clinical aspiration signs with thin liquid, possible pharyngeal stasis and reduced/absent laryngeal elevation at bedside. Patient is edentulous. Patient reports eating soft solids at home (e.g. spaghetti) and using straws occasionally. VFSS Eval: Radiology Radiologist Dr. Raymundo Views Taken left lateral Physical Location of Procedure [facility] Radiology VFSS Eval: Thin Liquid Texture Trial Mode of Presentation, Thin Liquid spoon;cup;fed by clinician;self-fed Order of Presentation 1, 2 (spoon), 3, 8 (cup) Preparatory Phase Poor bolus control (piecemeal deglutition) Oral Phase, Thin Liquid Poor AP movement;Premature pharyngeal entry Pharyngeal Phase, Thin Liquid Delayed swallow reflex (delay to pyriform sinuses) Rosenbek's Penetration Aspiration Scale: Thin Liquid Trial Results 2 - contrast enters airway, remains above the vocal cords, no residue remains (penetration) (transient flash laryngeal penetration) Diagnostic Statement Risk for aspiration given delayed swallow response; no pharyngeal residue VFSS Eval: Spry Thick Liquid Texture Trial Mode of Presentation, Spry cup;self-fed Order of Presentation 4 Preparatory Phase Poor bolus control Oral Phase, Spry Poor AP movement;Premature pharyngeal entry Pharyngeal Phase, Spry Delayed swallow reflex (delay to pyriform sinuses) Rosenbek's Penetration Aspiration Scale: Spry-Thick Liquid Trial Results 2 - contrast enters airway, remains above the vocal cords, no residue remains (penetration) (transient flash laryngeal penetration) Diagnostic Statement Risk for aspiration; no pharyngeal residue VFSS Eval: Honey Thick Texture Trial Mode of Presentation, Honey cup;self-fed Order of Presentation 5 Preparatory Phase Poor bolus control Oral Phase, Honey Poor AP movement;Premature pharyngeal entry Pharyngeal Phase, Honey Delayed swallow reflex (improved but delay to level of pyriform sinuses) Rosenbek's Penetration Aspiration Scale: Honey Trial Results 2 - contrast enters airway, remains above the vocal cords, no residue remains (penetration) (transient flash laryngeal penetration) Diagnostic Statement Risk for aspiration; no pharyngeal residue VFSS Eval: Pudding Thick Liquid Texture Trial Mode of Presentation, Pudding spoon Order of Presentation 6 Preparatory Phase Poor bolus control Oral Phase, Pudding Poor AP movement Pharyngeal Phase, Pudding WFL Rosenbek's Penetration Aspiration Scale: Pudding-Thick Liquid Trial Results 1 - no aspiration, contrast does not enter airway Diagnostic Statement no pharyngeal residue VFSS Eval: Semisolid Texture Trial Mode of Presentation, Semisolid spoon;fed by clinician Order of Presentation 7 (not recorded) Preparatory Phase Poor bolus control;Insufficient mastication Oral Phase, Semisolid Poor AP movement Pharyngeal Phase, Semisolid WFL Rosenbek's Penetration Aspiration Scale: Semisolid Food Trial Results 1 - no aspiration, contrast does not enter airway Diagnostic Statement No pharyngeal residue Swallow Eval: Clinical Impressions Skilled Criteria for Therapy Intervention Skilled criteria met. Treatment indicated. Functional Assessment Scale (FAS) 4 Dysphagia Outcome Severity Scale (LILIBETH) Level 4 - LILIBETH Treatment Diagnosis mild-moderate oropharyngeal dysphagia Diet texture recommendations Thin liquids;Dysphagia diet level 3 Recommended Feeding/Eating Techniques maintain upright posture during/after eating for 30 mins;smallsips/bites;no straws (Double swallow; SUPERVISED) Rehab Potential fair, will monitor progress closely Demonstrates Need for Referral to Another Service (involved) Therapy Frequency daily Predicted Duration of Therapy Intervention (days/wks) 1 week as IP and OP to follow up Anticipated Discharge Disposition other (see comments) (long-term with home MACHINERY RIGGER) Risks and Benefits of Treatment have been explained. Yes Patient, family and/or staff in agreement with Plan of Care Yes Clinical Impression Comments Patient presents with mild-moderate oropharyngeal dysphagia characterized by reduced oral bolus control and AP transit, piecemeal deglutition, delayed swallow to level of pyriform sinuses across liquid consistencies resulting in transient flash laryngeal penetration of allliquid consistencies. No aspiration occurred during today's study. No pharyngeal residue remained. Note impulsivity with feeding unless cued. Recommend continue dysphagia diet level 3 with thin liquidsgiven 1:1 supervision and swallow strategies (upright positioning, NO straws, small bites/sips, double swallow, slow rate). Total Evaluation Time Total Evaluation Time (Minutes) 15 Jaxon Chaney MD - 06/17/2014 7:34 AM CDT Vascular Surgery Progress Note S:No complaints. O: Vitals: BP Min: 144/68 Max: 179/91 Temp Av ??F (36.7 ??C) Min: 97.4 ??F (36.3 ??C) Max: 98.5 ??F (36.9 ??C) Pulse Av.8 Min: 80 Max: 87 Physical Exam: VAC working well. No thigh edema or cellulitis. Assessment/Plan:Will plan to remove VAC tomorrow and the stop VAC. ? Home after dialysis tomorrow. ? How long with antibiotics. Wm. Rani HARPER AKT Alejandro Emerson MD - 06/16/2014 11:10 AM CDT Speech Path notes reviewed. DDL3 ordered. I ordered a video swallow study for tomorrow. BP 144/68 - improved. Next HD Tuesday. Will update labs in AM. Alejandro Emerson MD Jaxon Buenrostro MD - 06/16/2014 11:10 AM CDT Vascular Surgery Progress Note S:No complaints. O: No fevers. + HTN Vitals: BP Min: 122/78 Max: 208/85 Temp Av.2 ??F (36.8 ??C) Min: 97.4 ??F (36.3 ??C) Max: 99.6 ??F (37.6 ??C) Pulse Av.3 Min: 80 Max: 94 Physical Exam: No pain. Left thigh VAC working well. Graft worked well yesterday with dialysis. Assessment/Plan: VAC change in AM. Wm. 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 Swallowing Evaluation Bedside swallow evaluation Behavorial Observations Impulsive Mode of current nutrition Oral diet Type of oral diet Regular Respiratory Status (Room air, reports of wheezing, coughing, choking) Comments Pt was seen sitting upright in chair for swallow evaluation. Pt is able to follow directions with minimal repetitions. Cooperative and alert for the assessment. Oral Musculature Evaluation Oral Musculature generally intact Structural Abnormalities none present Dentition edentulous, does not have dentures Mucosal Quality good Mandibular Strength and Mobility intact Oral Labial Strength and Mobility impaired retraction;impaired coordination Lingual Strength and Mobility impaired anterior elevation;other (see comments) (impaired retraction and lateral coordination) Velar Elevation impaired (Low tone) Buccal Strength and Mobility impaired (Low tone) Volitional Abilities Cough;Throat clear;Swallow (poor laryngeal elevation, tongue thrust swallow, weak cough) Clinical Swallow Evaluation Additional Documentation Yes Clinical Swallow Eval: Thin Liquid Texture Trial Mode of Presentation, Thin Liquids cup;straw;fed by clinician Volume of Liquid or Food Presented 2-3 sips via straw, change in vocal quality, watery eyes. cup small sip Oral Phase of Swallow Premature pharyngeal entry Pharyngeal Phase of Swallow impaired;no awareness of problems;repeated swallows;wet vocal quality after swallow Successful Strategies Trialed During Procedure (Multiple swallow cues for each sip, decreased vocal change) Diagnostic Statement Impaired oral and pharyngeal phase of swallow with suspected silent aspiration using a straw. No coughing present, watery eyes and vocal change present Clinical Swallow Eval: Pudding Thick Liquid Texture Trial Mode of Presentation, Pudding spoon;fed by clinician Volume of Pudding Presented 1/2 tsp Oral Phase, Pudding Poor AP movement Oral Residue, Pudding (No residue in oral cavity, suspect pharyngeal residue) Pharyngeal Phase, Pudding impaired;no awareness of problems;repeated swallows;wet vocal quality after swallow Successful Strategies Trialed During Procedure, Pudding other (see comments) (Multiple (hard swallows)) Diagnostic Statement Impaired pharyngeal swallow with high aspiration risk due to poor awareness andvocal quality change. Pt is able to follow directions for multiple swallow to reduce vocal change. No awareness to difficulty Clinical Swallow Eval: Puree Solid Texture Trial Mode of Presentation, Puree self-fed Volume of Puree Presented 2-3 cheerios per bite Oral Phase, Puree other (see comments) (Prolonged due to lack of dentition) Pharyngeal Phase, Puree no awareness of problems;repeated swallows (watery eyes) Successful Strategies Trialed During Procedure, Puree hard swallow (Multiple swallow, Pt does not report food sticking) Clinical Swallow Eval: Semisolid Texture Trial Mode of Presentation, Semisolid self-fed Volume of Semisolid Food Presented 1/2 tsp Oral Phase, Semisolid Poor AP movement Pharyngeal Phase, Semisolid (impaired;repeated swallows;wet vocal quality after swallow) Successful Strategies Trialed During Procedure, Semisolid other (see comments) Diagnostic Statement Impaired. Pt is appropriate for a VFSS to assess safest least restrictive diet and successful swallow strategies. Clinical Swallow Eval: Solid Food Texture Trial Mode of Presentation, Solid self-fed VFSS Evaluation VFSS Additional Documentation (Appropriate for VFSS to further assess swallow function. ) Swallow Compensations Swallow Compensations Alternate viscosity of consistencies;Effortful swallow;Pacing;Reduce amounts;Multiple swallow Results Suspect silent aspiration General Therapy Interventions Planned Therapy Interventions Dysphagia Treatment Dysphagia treatment Oropharyngeal exercise training;Modified diet education;Instruction of safe swallow strategies;Compensatory strategies for swallowing Intervention Comments Recommend VFSS to make diet recommendation. Swallow Eval: Clinical Impressions Skilled Criteria for Therapy Intervention Skilled criteria met. Treatment indicated. Functional Assessment Scale (FAS) 3 Dysphagia Outcome Severity Scale (LILIBETH) Level 3 - LILIBETH Treatment Diagnosis Moderate Oral-pharyngeal dysphagia Diet texture recommendations Dysphagia diet level 3;Regular diet (Full supervision for use of strategies) Recommended Feeding/Eating Techniques alternate between small bites and sips of food/liquid;hard swallow w/ each bite or sip;maintain upright posture during/after eating for 30 mins;no straws;small sips/bites;other (see comments) (Multiple swallows with each bite/sip and oral med) Rehab Potential fair, will monitor progress closely Therapy Frequency (1x daily as IP) Predicted Duration of Therapy Intervention (days/wks) 1 week as IP and OP to follow up Anticipated Discharge Disposition other (see comments) (Jail with Home ST) Risks and Benefits of Treatment have been explained. Yes Patient, family and/or staff in agreement with Plan of Care Yes Clinical Impression Comments Julio Cesar demonstrates oral pharyngeal dysphagia secondary to low tone, absent dentition, poor laryngeal elevation and limited to no awareness to pharyngeal stasis across all trials. Due to the above difficulties, Julio Cesar is at high risk for aspiration without use of strategies.Pt is able to follow directions for strategies including small bites and sips, NO STRAWS, alternate liquids and solids and multiple swallows given full supervision and cues. Recommending a VFSS to assess safest least restrictive diet and identify successful strategies prior to discharge, Dysphagia Diet Level 3 with thin liquids from a cup and full supervision including cues for swallow strategies. Total Evaluation Time Total Evaluation Time (Minutes) 20 minutes Angie Noel RN - 06/15/2014 3:56 PM CDT Potassium Date Value Range Status 06/15/2014 5.9* 3.4 - 5.3 mmol/L Final ] HGB 7.6 06/15/2014 Weight: 97.8 kg (215 lb 9.8 oz) POST WT 93.8kg DIALYSIS PROCEDURE NOTE Patient dialyzed for 3.5 hrs. on a 2 K bath with a net fluid removal of 4L. A BFR of 400 ml/min was obtained via a Lthigh graft using 15guage needles. The patient was seen by Dr. Emerson during the treatment. Total heparin received during the treatment: 0 units. Sites held x 20min then pressure drsgs applied. Meds Given:EPO 11,000units IV Complications: NONE. Procedure and ESRD teaching done and questions answered. See flowsheet in [employer] for further details and post assessment. Pt returned via Wheelchair. Machine water alarm in place and functioning. Vascular Access: Aseptic prep done for both on/off. Report received from:Nisha Quijano R.N. Report given to:Tyrone Todd R.n. Out[facility] D[facility] Hepatitis B surface antigen neg 06/08/14 and hbsab Immune 06/08/14. Alejandro Emerson MD - 06/15/2014 1:31 PM CDT Inpatient Dialysis Progress Note Assessment and Plan: 1. ESKD. Running well via graft. Stable. 2. Anemia. HGB remains low. On EPO 11K units. ISAT 13%. Ferritin 787. 3. HTN. BP still not well controlled. On losartan 100 mg daily, metoprolol 100 mg BID but not beta blocked, minoxidil 2.5 mg BID. Will increase both metoprolol and minoxidil. 4. FEN. K 5.9. On K2. Diet? Losartan? Access? 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 On Phoslo 2-3 with meals. I will reduce dose. 6. Cough: Still coughing. Observed to be choking. I think he should see Speech Path. Interval History: Cough is unchanged. Still wheezing off/on. BP still quite high. Getting PRN hydralazine. Eating ok. Denies n/v/f/c. No dizziness/lightheadedness/cramping. No abd pain/cp Dialysis Parameters: Wt Readings from Last 4 Encounters: 06/13/14 97.8 kg (215 lb 9.8 oz) 06/13/14 97.8 kg (215 lb 9.8 oz) 05/08/14 83.779 kg (184 lb 11.2 oz) 05/08/14 83.779 kg (184 lb 11.2 oz) I/O last 3 completed shifts: In: 1160 [P.O.:1160] Out: - BP Readings from Last 3 Encounters: 06/15/14 208/85 06/15/14 208/85 05/08/14 166/80 Routine, ONE TIME, Starting today For 1 Occurrences Weight Loss (kg): 4 Dialysis Temp: 36.5 ??C Access Device: graft Access Site: left thigh Dialyzer: Revaclear Dialysis Bath: K 2 Blood Flow Rate (mL/min): 400 Total Treatment Time (hrs): 3.5 Heparin: no Medications and Allergies: Reviewed in EPIC ??? sodium chloride 0.9 % 250 mL Hemodialysis Machine Once ??? epoetin mauricio (EPOGEN,PROCRIT) inj ESRD 11,000 Units Intravenous Once ??? warfarin 4 mg Oral ONCE at 18:00 ??? minoxidil 5 mg Oral BID ??? losartan 100 mg Oral Daily ??? metoprolol 100 mg Oral BID ??? - MEDICATION INSTRUCTIONS for Dialysis Patients - Does not apply See Admin Instructions ??? nafcillin 1 g Intravenous Q6H ??? insulin aspart 1-3 Units Subcutaneous TID AC ??? insulin aspart 1-3 Units Subcutaneous At Bedtime ??? B dfybyef-Z-casvp acid 1 capsule Oral At Bedtime ??? bisacodyl 10 mg Oral User Specified ??? calcium acetate 1,334-2,001 mg Oral TID w/meals ??? cholecalciferol (vitamin D) tablet 1,000 Units 1,000 Units Oral Daily ??? simvastatin 40 mg Oral At Bedtime ??? sodium chloride (PF) 3 mL Intravenous Q8H - MEDICATION INSTRUCTIONS -, guaiFENesin-dextromethorphan, phenol-menthol, hydrALAZINE, glucose, dextrose, glucagon, Warfarin Therapy Reminder, lactulose, sodium chloride (PF), sodium chloride (PF), ondansetron, ondansetron, HYDROmorphone, HYDROcodone-acetaminophen, calcium acetate Allergies Allergen Reactions ??? Aspirin [Dihydroxyaluminum Aminoacetate] GI Disturbance GI bleeding Labs: BMP Recent Labs Lab 06/15/14 0734 06/14/14 0725 06/13/14 0655 06/11/14 1300 06/10/14 0713 06/09/14 0740 NA 133 -- -- -- 129* -- 135 POTASSIUM 5.9* 5.5* 6.3* 3.7 5.2 < > 5.9* CHLORIDE 96 -- -- -- 97 -- 100 JON 9.0 -- -- -- 8.4* -- 8.8 CO2 26 -- -- -- 26 -- 30 BUN 65* -- -- -- 57* -- 38* CR 7.87* -- -- -- 7.75* -- 6.19* GLC 90 -- -- -- 75 -- 79 < > = values in this interval not displayed. CBC Recent Labs Lab 06/15/14 0734 06/14/14 0725 06/13/14 0655 06/11/14 1300 06/10/14 0713 06/09/14 0740 WBC -- -- -- -- 6.3 6.1 HGB 7.6* 7.6* 7.6* 8.1* 7.3* 8.0* HCT -- -- -- -- 24.3* 27.3* MCV -- -- -- -- 84 85 PLT -- -- 152 -- 105* 112* No results found for this basename: AST, ALT, GGT, ALKPHOS, bilitotal, biliconj, bilidirect, bilirubinindirect, vu Physical Exam: Vitals were reviewed in [facility] Wt Readings from Last 3 Encounters: 06/13/14 97.8 kg (215 lb 9.8 oz) 06/13/14 97.8 kg (215 lb 9.8 oz) 05/08/14 83.779 kg (184 lb 11.2 oz) Intake/Output Summary (Last 24 hours) at 06/15/14 1331 Last data filed at 06/15/14 0800 Gross per 24 hour Intake 1020 ml Output 0 ml Net 1020 ml GENERAL APPEARANCE: pleasant, no distress, a & o HEENT: Eyes/ears/nose grossly normal, neck supple RESP: lungs clear to auscultation CV: regular rate and rhythm ABDOMEN: soft, nontender, bowel sounds normal EXTREMITIES/SKIN: 1+ pretibial edema, no rashes or lesions Pt seen on dialysis. Stable run. Good BFR. Attestation: I have reviewed today's vital signs, notes, medications, labs and imaging. Alejandro Emerson MD, MD [facility] - Nephrology [phone] Jaxon Buenrostro MD - 06/15/2014 7:28 AM CDT Vascular Surgery Progress Note S:No complaints. O: Vitals: BP Min: 146/78 Max: 202/92 Temp Av.9 ??F (36.6 ??C) Min: 97.5 ??F (36.4 ??C) Max: 98.2 ??F (36.8 ??C) Physical Exam:VAC working well. Lower INR yesterday (1.75) Assessment/Plan: Dialysis today. ON IV Nafcillin. On Coumadin. Wm. Rani HARPER Rand Benedict MD - 06/15/2014 7:22 AM CDT Vascular Surgery Progress Note Resting in chair, no complaints. AF/VSS Left thigh graft with vac in place, good suction, good thrill NIWB, RRR Plan for dressing change Tuesday - replace vac vs aquacell. Possibly home early next week. Emi Benedict, G4 Surgery Resident [phone] Megan Becerra LSW - 06/14/2014 1:45 PM CDT D: Per protocol following for discharge planning. Patient anticipated to discharge Tuesday or Tuesday. I/A: SW contacted [facility] to check benefits for home IV Abx. P: SW following. Update I: Received call from Mirlande at [facility]. Patient does not have home IV Abx coverage through his Medicare. Patient does have coverage through [place]; however, we will need to have patient sign an ABN (Advance Beneficiary Notice) and fax it to [facility] (fax [phone]) prior to patient's discharge- this form will allow [place] to cover the home IV abx. P: SW following. Jaxon Buenrostro MD - 06/14/2014 7:40 AM CDT Vascular Surgery Progress Note Doing well, no complaints. NIWB, RRR Wound vac to left loop graft changed. Sutures visible at base after light debridement - excellent granulation tissue without purulence, erythema Plan for likely home early next week. Continue wound vac until graft better covered. Minimize blood draws. Emi Benedict, Surgery Resident [phone] Staff: Graft almost covered with granulation. We performed a selective wound debridement at bedside with #15 blade. >90% healthy granulation. Wd= 7 x 1.5 x 1 cm. <1cm x0.4 cm anterior graft wall visible. Siver VAC reapplied. Jaxon Buenrostro MD Stacy Del Rio RN - 06/13/2014 11:26 AM CDT DIALYSIS PROCEDURE NOTE POTASSIUM 6.3 06/13/2014 HGB 7.6 06/13/2014 Weight: 97.8 kg (215 lb 9.8 oz) Pt dialyzed for 3.5 hrs via LLG, BFR 400 with a net volume removal of 4 L on K2 bath. Heparin given on run: 0 units Complications: none Medications given: Epogen 11,000 units Pt seen by Dr. Emerson during treatment EDW 82.5 kg, post run weight 93.8 kg Pt received education on procedure and ESRD while on dialysis. See Epic dialysis flowsheet for details of dialysis run and post run report hand off. Transducer protector checked Q 15 minutes, dry at each check Pt arrived to dialysis via wc, left via wc Pt dialyzes TThSat in [place] [facility] alarms on for run . Post run pt assessment charted in [facility] on [facility] flowsheet Alejandro Emerson MD - 06/13/2014 9:47 AM CDT Inpatient Dialysis Progress Note Assessment and Plan: 1. ESKD. Tolerating HD well. K running high again. HGB down. GI bleed? Or stenosis in graft? 2. Anemia. HGB down. He is on EPO 11K 3x/week. Ferritin 787. Isat 13%. 3. HTN. BP high but he has not had any meds yet. Started minoxidil yesterday. Has cough. Wonder if due to lisinopril. 4. FEN. K 6.3. On K2. Access issue? Diet? GI bleed? 5. Cough: Lungs clear. May be related to lisinopril. Plan: Stop lisinopril Losartan instead. Cough syrup Serial hgb Stool hemoccult Interval History: Eating ok. Denies n/v/f/c. No dizziness/lightheadedness/cramping. No abd pain/cp/sob. Dialysis Parameters: Wt Readings from Last 4 Encounters: 06/13/14 97.8 kg (215 lb 9.8 oz) 06/13/14 97.8 kg (215 lb 9.8 oz) 05/08/14 83.779 kg (184 lb 11.2 oz) 05/08/14 83.779 kg (184 lb 11.2 oz) I/O last 3 completed shifts: In: 830 [P.O.:830] Out: - BP Readings from Last 3 Encounters: 06/13/14 176/81 06/13/14 176/81 05/08/14 166/80 Routine, ONE TIME, Starting today For 1 Occurrences Weight Loss (kg): 4 Dialysis Temp: 36.5 ??C Access Device: graft Access Site: L leg Dialyzer: Revaclear Dialysis Bath: K2 Blood Flow Rate (mL/min): 400 Total Treatment Time (hrs): Heparin: no Medications and Allergies: Reviewed in EPIC ??? epoetin mauricio (EPOGEN,PROCRIT) inj ESRD 11,000 Units Intravenous Once ??? minoxidil 2.5 mg Oral BID ??? losartan 100 mg Oral Daily ??? metoprolol 100 mg Oral BID ??? - MEDICATION INSTRUCTIONS for Dialysis Patients - Does not apply See Admin Instructions ??? nafcillin 1 g Intravenous Q6H ??? insulin aspart 1-3 Units Subcutaneous TID AC ??? insulin aspart 1-3 Units Subcutaneous At Bedtime ??? B dlwtrfx-S-blnka acid 1 capsule Oral At Bedtime ??? bisacodyl 10 mg Oral User Specified ??? calcium acetate 1,334-2,001 mg Oral TID w/meals ??? cholecalciferol (vitamin D) tablet 1,000 Units 1,000 Units Oral Daily ??? simvastatin 40 mg Oral At Bedtime ??? sodium chloride (PF) 3 mL Intravenous Q8H - MEDICATION INSTRUCTIONS -, phenol-menthol, hydrALAZINE, glucose, dextrose, glucagon, Warfarin Therapy Reminder, lactulose, sodium chloride (PF), sodium chloride (PF), ondansetron, ondansetron, HYDROmorphone, HYDROcodone- acetaminophen, calcium acetate Allergies Allergen Reactions ??? Aspirin [Dihydroxyaluminum Aminoacetate] GI Disturbance GI bleeding Labs: BMP Recent Labs Lab 06/13/14 0655 06/11/14 1300 06/10/14 0713 06/10/14 0040 06/09/14 0740 NA -- -- 129* -- -- 135 POTASSIUM 6.3* 3.7 5.2 5.1 < > 5.9* CHLORIDE -- -- 97 -- -- 100 JON -- -- 8.4* -- -- 8.8 CO2 -- -- 26 -- -- 30 BUN -- -- 57* -- -- 38* CR -- -- 7.75* -- -- 6.19* GLC -- -- 75 -- -- 79 < > = values in this interval not displayed. CBC Recent Labs Lab 06/13/14 0655 06/11/14 1300 06/10/14 0713 06/09/14 0740 06/08/14 0643 06/07/14 0741 WBC -- -- 6.3 6.1 6.8 3.8* HGB 7.6* 8.1* 7.3* 8.0* 7.9* 8.2* HCT -- -- 24.3* 27.3* 26.6* 28.3* MCV -- -- 84 85 85 87 PLT 152 -- 105* 112* 118* 133* No results found for this basename: AST, ALT, GGT, ALKPHOS, bilitotal, biliconj, bilidirect, bilirubinindirect, vu Physical Exam: Vitals were reviewed in [facility] Wt Readings from Last 3 Encounters: 06/13/14 97.8 kg (215 lb 9.8 oz) 06/13/14 97.8 kg (215 lb 9.8 oz) 05/08/14 83.779 kg (184 lb 11.2 oz) Intake/Output Summary (Last 24 hours) at 06/13/14 0947 Last data filed at 06/13/14 0800 Gross per 24 hour Intake 880 ml Output 0 ml Net 880 ml GENERAL APPEARANCE: pleasant, no distress, a & o HEENT: Eyes/ears/nose grossly normal, neck supple RESP: lungs clear to auscultation with good efforts, no crackles, rhonchi or wheezes CV: regular rate and rhythm, normal S1 S2, no murmur, click or rub ABDOMEN: soft, nontender, bowel sounds normal EXTREMITIES/SKIN: no edema, no rashes or lesions Pt seen on dialysis. Stable run. Good BFR. Attestation: I have reviewed today's vital signs, notes, medications, labs and imaging. Alejandro Emerson MD, MD [facility] - Nephrology [phone] Jaxon Buenrostro MD - 06/13/2014 7:41 AM CDT Vascular Surgery Progress Note - G4 Denies pain at incision site. Wondering about dialysis time. BP remains high, o/w AF/VSS Breathing comfortably on RA Good thrill in graft Vac working well with minimal drainage Vac change tomorrow - may switch to dry dressings then. Continue IV abx - will need total at least 3weeks. Dialysis today. Emi Benedict, G4 Surgery Resident [phone] Staff: As above. Change VAC in AM. Jaxon Buenrostro MD Caryn Bajwa - 06/12/2014 3:21 PM CDT SP[facility]UAL [facility] Progress Note [facility] DATA: Visited pt per LOS. Pt has some difficulty talking and at times started to fall asleep. Pt stated that he had a islam but did not want SH to contact his islam. Told SH that would be pointless. SH andpt talked about how and why that would be pointless. ASSESSMENT: Pt seemed very exhausted at time of visit and it appeared to take a lot of energy to communicate with SH. INTERVENTION: SH offered to come back after pt had time to rest and pt thought that would be good. PLAN: SH will remain available to pt and follow up depending on LOS. Caryn Bajwa [employer] Pager [phone] Alejandro Emerson MD - 06/12/2014 3:08 PM CDT Renal Medicine Progress Note Assessment/Plan: 1) ESRD - dialysis tomorrow. 2) Access troubles: exposed graft. Wound vac in place. 3) Wheezing: I did not hear any now. It is a concern as I did increase his beta david in last 2 days. 4) HTN: Not controlled. I will add low dose minoxidil. Interval History: Feels OK. BP has been high much of the day. Had prn hydralazine and latest BP is lower - 140s. Seems likely he still needs more antihypertensive. RNs noted exp wheezes today as well but noticed no respiratory distress. Medications and Allergies: ??? warfarin-No DOSE today 1 each Does not apply no dose today (warfarin) ??? metoprolol 100 mg Oral BID ??? lisinopril 20 mg Oral Daily ??? - MEDICATION INSTRUCTIONS for Dialysis Patients - Does not apply See Admin Instructions ??? nafcillin 1 g Intravenous Q6H ??? insulin aspart 1-3 Units Subcutaneous TID AC ??? insulin aspart 1-3 Units Subcutaneous At Bedtime ??? B smfvsmw-V-vnuts acid 1 capsule Oral At Bedtime ??? bisacodyl 10 mg Oral User Specified ??? calcium acetate 1,334-2,001 mg Oral TID w/meals ??? cholecalciferol (vitamin D) tablet 1,000 Units 1,000 Units Oral Daily ??? simvastatin 40 mg Oral At Bedtime ??? sodium chloride (PF) 3 mL Intravenous Q8H Allergies Allergen Reactions ??? Aspirin [Dihydroxyaluminum Aminoacetate] GI Disturbance GI bleeding Physical Exam: Vitals were reviewed BP 147/83 Pulse 87 Temp(Src) 98.2 ??F (36.8 ??C) (Oral) Resp 18 Ht 1.626 m (5' 4) Wt 95.9kg (211 lb 6.7 oz) BMI 36.27 kg/m2 SpO2 100% Wt Readings from Last 3 Encounters: 06/11/14 95.9 kg (211 lb 6.7 oz) 06/11/14 95.9 kg (211 lb 6.7 oz) 05/08/14 83.779 kg (184 lb 11.2 oz) Intake/Output Summary (Last 24 hours) at 06/12/14 1508 Last data filed at 06/12/14 0730 Gross per 24 hour Intake 660 ml Output 0 ml Net 660 ml GENERAL APPEARANCE: pleasant, NAD, a & o HEENT: Eyes/ears/nose/neck grossly normal RESP: lungs cta b c good efforts, no crackles, rhonchi or wheezes CV: RRR, nl S1/S2, no m/r/g ABDOMEN: o/s/nt/nd, bs present EXTREMITIES/SKIN: no rashes/lesions; tr edema Data: BMP Recent Labs Lab 06/11/14 1300 06/10/14 0713 06/10/14 0040 06/09/14 2045 06/09/14 0740 06/06/14 0830 NA -- 129* -- -- -- 135 -- 129* POTASSIUM 3.7 5.2 5.1 6.0* < > 5.9* < > 4.8 CHLORIDE -- 97 -- -- -- 100 -- 93* JON -- 8.4* -- -- -- 8.8 -- 8.1* CO2 -- 26 -- -- -- 30 -- 25 BUN -- 57* -- -- -- 38* -- 59* CR -- 7.75* -- -- -- 6.19* -- 8.94* GLC -- 75 -- -- -- 79 -- 93 < > = values in this interval not displayed. CBC Recent Labs Lab 06/11/14 1300 06/10/14 0713 06/09/14 0740 06/08/14 0643 06/07/14 0741 WBC -- 6.3 6.1 6.8 3.8* HGB 8.1* 7.3* 8.0* 7.9* 8.2* HCT -- 24.3* 27.3* 26.6* 28.3* MCV -- 84 85 85 87 PLT -- 105* 112* 118* 133* No results found for this basename: AST, ALT, GGT, ALKPHOS, bilitotal, biliconj, bilidirect, bilirubinindirect, vu Lab Results Component Value Date INR 3.07* 06/12/2014 No results found for this basename: D2VIT, D3VIT, DTOT Attestation: I have reviewed today's relevant vital signs, notes, medications, labs and imaging. Alejandro Emerson MD [facility] - Nephrology [phone], LD - 06/12/2014 12:06 PM CDT Received a phone call from pt's dietitian at [facility], she confirmed that pt has Prader-WilliSyndrom. She had received a call from pt's aunt who is concerned that pt is getting too much food. Pt's diet order is a dialysis diet and he would not be allowed unlimited amounts of food. Spoke with nursing and asked that he not be given snacks from the unit if he requests them. The dietitian also stated that pt is usually on a 1500 mL fluid restriction, I also passed that information on to nursing. Suad Johnston RD Pager [phone] (M-F) [phone] (W/E & Hol) Jaxon Buenrostro MD - 06/12/2014 7:29 AM CDT Vascular Surgery Progress Note - G4 Doing well, denies pain. No SOB since dialysis. Ready for breakfast. AF/VSS NIWB Graft site with excellent granulation tissue, no graft visible at base, no surrounding erythema, vacreplaced 2+ pulses 49 YOM s/p I&D infected hematoma at right leg AV graft site, now with wound vac in place. Continue vac until wound ready for simple dressings - remain in-house due to risk of bleeding and infection. Cont IV nafcillin. Vesta Burgos Surgery Resident [phone] Staff: As above. Wound looking good. VAC cannge again in 2 days. Home when wound well granulating (encouraging so far). Jaxon Buenrostro MD Rand Benedict MD - 06/11/2014 4:53 PM CDT Vascular Surgery Progress Note - G4 No complaints. Sitting up eating toast. BP remains high, o/w AF/VSS Breathing comfortably on RA Vac working well Dressings at dialysis sites Plan for vac change in am. Continue IV abx. Dialysis TThSa. Vesta Burgos Surgery Resident [phone] Negrita Alvarez RN - 06/11/2014 3:08 PM CDT Malaise and fatigue before surgery, blood pressures elevated 192/101. After procedure blood pressureimproved. Lung sounds diminished, dry non productive cough. Up with stand by assist, fistula on leftthigh, has a wound vac. On Iv antibiotics denied any pain. AKT Suad Johnston RD, LD - 06/11/2014 1:13 PM CDT BRIEF NUTRITION ASSESSMENT REASON FOR ASSESSMENT: LOS CURRENT DIET AND NOURISHMENT ORDER: Information obtained from the chart and social sciences instructor. Pt is in dialysis; attempted to visit him but he was busy w/staff. He likely sees an RD monthly, perdialysis protocol. Per social sciences instructor, pt's aunt (with whom he lives) stated he has Prader-Willi Syndrome and will continue to eat until the food is removed. Diet: Dialysis diet Current Intake/Tolerance: Has been eating 100% and still c/o being hungry. ANTHROPOMETRICS: Height: 5' 4 Admit Weight: 84 kg BMI: 31.58 kg/m2 IBW: 59.1 kg +/- 10% %IBW: 142% Weight History: Wt Readings from Last 10 Encounters: 06/11/14 95.9 kg (211 lb 6.7 oz) 06/11/14 95.9 kg (211 lb 6.7 oz) 05/08/14 83.779 kg (184 lb 11.2 oz) 05/08/14 83.779 kg (184 lb 11.2 oz) 06/28/13 75.751 kg (167 lb) 06/21/13 83.4 kg (183 lb 13.8 oz) 06/21/13 83.4 kg (183 lb 13.8 oz) 05/23/13 79.9 kg (176 lb 2.4 oz) 03/23/13 82 kg (180 lb 12.4 oz) 11/08/12 74.39 kg (164 lb) LABS: Reviewed NUTRITION STATUS VALIDATION: Weight Status: Obesity Grade I BMI 30-34.9 Patient does not meet two of the following criteria necessary for diagnosing malnutrition: significant weight loss, reduced intake, subcutaneous fat loss, muscle loss or fluid retention INTERVENTION: Nutrition Diagnosis: No nutrition diagnosis at this time. Implementation: Nutrition Education: None planned Follow Up/Monitoring: Will re-evaluate in 7 days, or sooner, if nutritional status changes. Suad Johnston RD Pager [phone] (M-F) [phone] (W/E & Hol) Isis Stanley RN - 06/11/2014 12:33 PM CDT Updated patient's POA, Thelma, regarding plan of care regarding the wound. Dona Cordon LSW - 06/11/2014 12:33 PM CDT SULY D: SW following for DC planning per family request to speak with SWS. Pt is a 49 y/o single male with a dx of end stage kidney disease on dialysis. Pt lives at home with his aunt who is also his BANKRUPTCY ATTORNEY and POA. I: SULY met with pt's aunt Thelma and Thelma's daughter in law to introduce self/role, perform initialassessment, and discuss plan for d/c. Recommendation on DC is home with resumption of services. Pt has been cared for by his aunt for more than 20 years. Thelma gave SULY a copy of POA for pt in which she is listed at the primary financial management analyst for pt. Thelma manages all aspects of his care including bills/finances, medications, meals, appointment scheduling and wound care. Per Thelma, pt has a condition in which he is not able to feel full after eating a meal and will continue to consume food until he is stopped. Pt will report feeling hungry almost constantly and pursue food whenever able. SULY relay ed this information to pt's Clinical Dietitian. Thelma would like pt to return to his home in [place] oncehe is medically stable. Pt uses [facility] [employer] for transport needs ([phone]) which will needto be arranged on DC. SULY unable to speak with pt as he was asleep in dialysis at the time of the above meeting. Per Thelma, pt is on the kidney transplant list through [facility] and Thelma is interested in having further procedures completed at an [facility] for continuity of care. SULY told Thelma todiscuss this with pt's PCP and Dr. Buenrostro. A: Pt would benefit from returning home with his aunt/BANKRUPTCY ATTORNEY when medically stable. Pt has many involved and supportive family members. P: SW will follow for DC planning and as needed. Dona Cordon, PERLA, [facility] ADDENDUM: Anya from [employer] left a message for SW asking for DC summary and orders when pt is discharged (P: [phone]). [employer] is BANKRUPTCY ATTORNEY company for pt at home. Shirley Hampton RN - 06/11/2014 11:23 AM CDT Potassium Date Value Range Status 06/10/2014 5.2 3.4 - 5.3 mmol/L Final ] HGB 7.3 06/10/2014 Weight: 95.9 kg (211 lb 6.7 oz) (standing wt.) DIALYSIS PROCEDURE NOTE Patient dialyzed for 3.5 hrs. on a 2 K bath for serum K of 5.2 mEq/L with a net fluid removal of 4L (UF goal increased from 3L to 4L per Dr. Emerson for increased symptoms). A BFR of 400 ml/min was obtained via a Left thigh AVG using 15 gauge needles above and below Wound VAC - all connections were secured. The patient was seen by Dr. Emerson during the treatment. Total heparin received during the treatment: ZERO units. Sites held x 15 min until hemostasis achieved, then pressure dressings applied. Total blood volume processed: 82.3 L. Dialysis meds given: Epogen 11,000 units IV. Complications: none.Procedure and ESRD teaching done and questions answered. See flowsheet in [employer] for further details. Post-run labs drawn at the end of dialysis (per Dr Emerson): K+, Hgb, Iron studies, ferritin. Prime given: NS Saline double clamped and Arterial/Venous parameters set. Medical aseptic prep utilized. RO Log completed. Patient transported via bed to and from the dialysis unit. Transducers checked q15 minutes with vital sign check. Dialyzer Lot # [id number] Blood line Lot # [id number] Hepatitis B surface Ag: Non-reactive (06/04/14) Hepatitis B surface Ab: Immune (06/04/14) Pre-run report received from: Negrita Alvarez RN Post-run report given to: the same Outpatient Dialysis at [place] [facility] Kalie Hampton RN - [facility] Alejandro Emerson MD - 06/11/2014 9:13 AM CDT Inpatient Dialysis Progress Note Assessment and Plan: 1. ESKD. Good BFR via AVG. Still has wound vac and exposed graft. Troubles with high potassium recently. No prerun labs ordered. I will order a post run potassium to see if we are clearing. It will notbe equilibrated so it may be low. Some SOB with faint wheezing. Given BP he may be volume up. Will try to increase goal of UF. 2. Anemia. HGB fell to 7.3 yesterday. Will send one post run when we draw the K. He is on EPO 11K three times per week. I will send iron stores as well. 3. HTN. BP high. Not controlled throughout hospital stay. BP meds adjusted by Dr. Brunson. I will increase metoprolol. He has not had bradycardia. 4. FEN. K 2. Has had high Ks. See above. Interval History: Aches all over. A little SOB. BP up. No N/V/D. Dialysis Parameters: Wt Readings from Last 4 Encounters: 06/11/14 95.9 kg (211 lb 6.7 oz) 06/11/14 95.9 kg (211 lb 6.7 oz) 05/08/14 83.779 kg (184 lb 11.2 oz) 05/08/14 83.779 kg (184 lb 11.2 oz) I/O last 3 completed shifts: In: 720 [P.O.:720] Out: 0 BP Readings from Last 3 Encounters: 06/11/14 192/101 06/11/14 192/101 05/08/14 166/80 Routine, ONE TIME, Starting today For 1 Occurrences Weight Loss (kg): 3 Dialysis Temp: 36.5 ??C Access Device: graft Access Site: Left thigh Dialyzer: Revaclear Dialysis Bath: K 2 Blood Flow Rate (mL/min): 400 Total Treatment Time (hrs): 3.5 Heparin: none Medications and Allergies: Reviewed in EPIC ??? sodium chloride 0.9 % 250 mL Hemodialysis Machine Once ??? epoetin mauricio (EPOGEN,PROCRIT) inj ESRD 11,000 Units Intravenous See Admin Instructions ??? lisinopril 20 mg Oral Daily ??? - MEDICATION INSTRUCTIONS for Dialysis Patients - Does not apply See Admin Instructions ??? nafcillin 1 g Intravenous Q6H ??? metoprolol 100 mg Oral Daily ??? insulin aspart 1-3 Units Subcutaneous TID AC ??? insulin aspart 1-3 Units Subcutaneous At Bedtime ??? B ksrzltw-B-ygwzc acid 1 capsule Oral At Bedtime ??? bisacodyl 10 mg Oral User Specified ??? calcium acetate 1,334-2,001 mg Oral TID w/meals ??? cholecalciferol (vitamin D) tablet 1,000 Units 1,000 Units Oral Daily ??? simvastatin 40 mg Oral At Bedtime ??? sodium chloride (PF) 3 mL Intravenous Q8H ??? HEParin 5,000 Units Subcutaneous Q8H - MEDICATION INSTRUCTIONS -, phenol-menthol, sodium chloride 0.9 %, hydrALAZINE, glucose, dextrose, glucagon, Warfarin Therapy Reminder, lactulose, sodium chloride (PF), sodium chloride (PF), ondansetron, ondansetron, HYDROmorphone, HYDROcodone-acetaminophen, calcium acetate Allergies Allergen Reactions ??? Aspirin [Dihydroxyaluminum Aminoacetate] GI Disturbance GI bleeding Labs: [facility] Recent Labs Lab 06/10/14 0713 06/10/14 0040 06/09/14 2045 06/09/14 1504 06/09/14 0740 06/06/14 0830 06/05/14 0739 NA 129* -- -- -- -- 135 -- 129* -- POTASSIUM 5.2 5.1 6.0* 5.9* < > 5.9* < > 4.8 4.3 CHLORIDE 97 -- -- -- -- 100 -- 93* -- JON 8.4* -- -- -- -- 8.8 -- 8.1* -- CO2 26 -- -- -- -- 30 -- 25 -- BUN 57* -- -- -- -- 38* -- 59* -- CR 7.75* -- -- -- -- 6.19* -- 8.94* -- GLC 75 -- -- -- -- 79 -- 93 106* < > = values in this interval not displayed. CBC Recent Labs Lab 06/10/14 0713 06/09/14 0740 06/08/14 0643 06/07/14 0741 WBC 6.3 6.1 6.8 3.8* HGB 7.3* 8.0* 7.9* 8.2* HCT 24.3* 27.3* 26.6* 28.3* MCV 84 85 85 87 PLT 105* 112* 118* 133* No results found for this basename: AST, ALT, GGT, ALKPHOS, bilitotal, biliconj, bilidirect, bilirubinindirect, vu Physical Exam: Vitals were reviewed in [facility] Wt Readings from Last 3 Encounters: 06/11/14 95.9 kg (211 lb 6.7 oz) 06/11/14 95.9 kg (211 lb 6.7 oz) 05/08/14 83.779 kg (184 lb 11.2 oz) Intake/Output Summary (Last 24 hours) at 06/11/14912 Last data filed at 06/10/14 2200 Gross per 24 hour Intake 720 ml Output 0 ml Net 720 ml GENERAL APPEARANCE: pleasant, appears in mild distress HEENT: Eyes/ears/nose grossly normal, neck supple RESP: lungs with soft exp wheezes CV: regular rate and rhythm, normal S1 S2, 2/6 systole murmur ABDOMEN: soft, nontender, bowel sounds normal EXTREMITIES/SKIN: tr edema, left thigh graft with wound vac Pt seen on dialysis. Stable run. Good BFR. Attestation: I have reviewed today's vital signs, notes, medications, labs and imaging. Alejandro Emerson MD, MD [facility] - Nephrology [phone] Wojciech Holman MD - 06/10/2014 9:44 AM CDT Renal Medicine Lying in bed comfortable No complaints Denies CP or SOB. K not problematic today Plan AM dialysis Recent Labs Lab 06/10/14 0713 06/10/14 0040 06/09/142044 06/09/14 1504 06/09/14 0740 06/06/14 0830 06/05/14 0739 NA 129* -- -- -- -- 135 -- 129* -- POTASSIUM 5.2 5.1 6.0* 5.9* < > 5.9* < > 4.8 4.3 CHLORIDE 97 -- -- -- -- 100 -- 93* -- CO2 26 -- -- -- -- 30 -- 25 -- ANIONGAP 6 -- -- -- -- 5* -- 11 -- GLC 75 -- -- -- -- 79 -- 93 106* BUN 57* -- -- -- -- 38* -- 59* -- CR 7.75* -- -- -- -- 6.19* -- 8.94* -- GFRESTIMATED 7* -- -- -- -- 10* -- 6* -- GFRESTBLACK 9* -- -- -- -- 12* -- 8* -- JON 8.4* -- -- -- -- 8.8 -- 8.1* -- < > = values in this interval not displayed. 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 No pain left thigh. Up eating breakfast. O: Vitals: BP Min: 167/82 Max: 180/87 Temp Av.1 ??F (36.7 ??C) Min: 97.6 ??F (36.4 ??C) Max: 98.6 ??F (37 ??C) Pulse Av Min: 85 Max: 101 Physical Exam: VAC working well. (we could still see PTFE graft at base of wound yesterday) Wbc=6.3 Hgb=7.3 Assessment/Plan:Stable. Dialysis today. Change VAC in AM. On IV antibiotics HTN Hyperkalemia-- trying to adjust diet. . Rani HARPER Chi Brunson MD - 06/09/2014 9:16 AM CDT Renal Medicine Progress Note Assessment/Plan: 1. ESKD. Pt dialysing per TRS schedule. Seemingly stable run . K is high again today despite HD and changing diet. . A. Next planned HD on Tuesday. B. Kayexalate 15g x 1. C. Repeat k later today. 2. Anemia. Pt's hb is stable. No signs of bleeding - on warfarin. Receives EPO c HD. A. Follow hb. B. Will increase EPO c next dose. 3. S. Aureus wound. Pt is on nafcillin for MSSA. A. Continue nafcillin. 4. HTN. On metop, but only non-HD days. Also, takes lisin on HD days, but hasn't been on it here. A. Change metop to 100 qd. B. Resume lisin 20 qd. C. If BPs drop, then we will readjust schedule. 5. DM2. Sugars are controlled. Some lows. A. Continue insulin sliding scale. 6. FEN. K is high - as above. Sugars have been lower - not on a diabetic diet at present. A. Continue dialysis diet, but no diabetic parameters given low sugars. B. Follow k. Interval History: Pt feels ok today. No n/v/f/c/abd pain. No cp/sob. No pain in leg. Medications and Allergies: ??? warfarin 2.5 mg Oral ONCE at 18:00 ??? sodium polystyrene 30 g Oral Once ??? lisinopril 20 mg Oral Daily ??? sodium polystyrene 15 g Oral Once ??? nafcillin 1 g Intravenous Q6H ??? metoprolol 100 mg Oral Daily ??? insulin aspart 1-3 Units Subcutaneous TID AC ??? insulin aspart 1-3 Units Subcutaneous At Bedtime ??? B ipybfbm-F-lmibj acid 1 capsule Oral At Bedtime ??? bisacodyl 10 mg Oral User Specified ??? calcium acetate 1,334-2,001 mg Oral TID w/meals ??? cholecalciferol (vitamin D) tablet 1,000 Units 1,000 Units Oral Daily ??? simvastatin 40 mg Oral At Bedtime ??? sodium chloride (PF) 3 mL Intravenous Q8H ??? HEParin 5,000 Units Subcutaneous Q8H Allergies Allergen Reactions ??? Aspirin [Dihydroxyaluminum Aminoacetate] GI Disturbance GI bleeding Physical Exam: Vitals were reviewed Heart Rate: 93, Blood pressure 171/88, pulse 87, temperature 98.6 ??F (37 ??C), temperature source Oral, resp. rate 16, height 1.626 m (5' 4), weight 95.8 kg (211 lb 3.2 oz), SpO2 100 %. Wt Readings from Last 3 Encounters: 06/08/14 95.8 kg (211 lb 3.2 oz) 06/08/14 95.8 kg (211 lb 3.2 oz) 05/08/14 83.779 kg (184 lb 11.2 oz) Intake/Output Summary (Last 24 hours) at 06/09/14 0920 Last data filed at 06/09/14 0800 Gross per 24 hour Intake 1900 ml Output 4000 ml Net -2100 ml GENERAL APPEARANCE: pleasant, NAD, alert, lying flat on back in bed HEENT: Quite nearsighted, o/w ok RESP: lungs cta b c good efforts, no crackles, rhonchi or wheezes CV: RRR c 2/6 m, nl S1/S2 ABDOMEN: o/s/nt/nd, bs present EXTREMITIES/SKIN: no ble edema; + L thigh VAC - non-tender; LLG - good thrill/bruit Data: CBC RESULTS: Recent Labs Lab 06/09/14 0740 06/08/14 0643 06/07/14 0741 06/05/14 0739 06/04/142011 WBC 6.1 6.8 3.8* -- -- RBC 3.20* 3.12* 3.25* -- -- HGB 8.0* 7.9* 8.2* -- -- HCT 27.3* 26.6* 28.3* -- -- PLT 112* 118* 133* 127* 123* Basic Metabolic Panel: Recent Labs Lab 06/09/14 0740 06/08/14 0643 06/07/14 0741 06/06/14 0830 06/05/14 0739 06/04/14 1315 NA 135 -- -- 129* -- -- POTASSIUM 5.9* 6.2* 4.8 4.8 4.3 3.5 CHLORIDE 100 -- -- 93* -- -- CO2 30 -- -- 25 -- -- BUN 38* -- -- 59* -- -- CR 6.19* -- -- 8.94* -- -- GLC 79 -- -- 93 106* -- JON 8.8 -- -- 8.1* -- -- INR Recent Labs Lab 06/09/14 0740 06/08/14 0643 06/07/14 0741 06/06/14 0830 INR 2.01* 1.49* 1.34* 1.43* Attestation: I have reviewed today's relevant vital signs, notes, medications, labs and imaging. Chi Brunson MD [facility] - Nephrology [phone] Jaxon Buenrostro MD - 06/09/2014 8:35 AM CDT Vascular Surgery Progress Note No complaints this am. Tolerated dialysis well yesterday. AF/VSS NIWB, RRR Wound with healthy granulation tissue at base - graft exposed again after slightly debridement Infected loop graft. Will need to remain hospitalized due to risk of bleeding until better granulation coverage of graft. Renal diet, encourage activity, cont coumadin. Continue nafcillin. Emi Benedict Surgery Resident [phone] Staff: As above. Good granulation but graft still exposed. We need granulation around graft before safe for discharge. Increased Potassium--will treat. Very comfortable. Jaxon Buenrostro MD Stacy Del Rio RN - 06/08/2014 11:05 AM CDT DIALYSIS PROCEDURE NOTE POTASSIUM 6.2 06/08/2014 HGB 7.9 06/08/2014 Weight: 95.8 kg (211 lb 3.2 oz) (standing wt.) Pt dialyzed for 3.75 hrs via LLG, BFR 400 with a net volume removal of 4 L on K2 bath. Heparin given on run: 0 units Complications: none Medications given: Epogen Pt seen by Dr. Brunson during treatment EDW 82.5 kg, post run weight 94.8 kg Pt received education on procedure and ESRD while on dialysis. See Epic dialysis flowsheet for details of dialysis run and post run report hand off. Transducer protector checked Q 15 minutes, dry at each check Pt arrived to dialysis via wheelchair, left via wheelchair Pt dialyzes TTHSat in [place] alarms on for run . Post run pt assessment charted in [facility] on [facility] flowsheet Chi Brunson MD - 06/08/2014 9:22 AM CDT Renal Medicine Progress Note Assessment/Plan: 1. ESKD. Pt dialysing per TRS schedule. Using LLG s probs. A. Continue TRS schedule. 2. Anemia. Pt's hb dropped a bit. He is on warfarin. Receives EPO c HD. A. Follow hb. B. Continue EPO - may have to increase dose. 3. S. Aureus wound. Pt is on nafcillin. A. Monitor cx to see if we will need to change abx (if MRSA). 4. HTN. On metop, but not well beta blocked and BP a bit high yday. Volume removal today should help. A. Monitor BP c volume removal. If doesn't improve, then will increase beta david. 5. DM2. Sugars are controlled. A. Continue insulin. 6. FEN. K is high - hasn't been on a k-restricted diet. A. Change to dialysis diabetic diet. B. Follow k. Interval History: Pt feels his breathing has been irregular since last night, but he does not have any sob/cp/orthopnea. Denies f/c/cough. Dialysing has not helped the sx. Medications and Allergies: ??? sodium chloride 0.9 % 250-1,000 mL Intravenous Once in dialysis ??? epoetin mauricio (EPOGEN,PROCRIT) inj ESRD 11,000 Units Intravenous See Admin Instructions ??? nafcillin 1 g Intravenous Q6H ??? epoetin mauricio ??? epoetin mauricio ??? epoetin mauricio (EPOGEN,PROCRIT) inj ESRD 11,000 Units Intravenous See Admin Instructions ??? insulin aspart 1-3 Units Subcutaneous TID AC ??? insulin aspart 1-3 Units Subcutaneous At Bedtime ??? B czjgfqg-V-aqrew acid 1 capsule Oral At Bedtime ??? bisacodyl 10 mg Oral User Specified ??? calcium acetate 1,334-2,001 mg Oral TID w/meals ??? cholecalciferol (vitamin D) tablet 1,000 Units 1,000 Units Oral Daily ??? simvastatin 40 mg Oral At Bedtime ??? sodium chloride (PF) 3 mL Intravenous Q8H ??? HEParin 5,000 Units Subcutaneous Q8H ??? metoprolol (LOPRESSOR) tablet 100 mg 100 mg Oral User Specified Allergies Allergen Reactions ??? Aspirin [Dihydroxyaluminum Aminoacetate] GI Disturbance GI bleeding Physical Exam: Vitals were reviewed Heart Rate: 70, Blood pressure 162/71, pulse 90, temperature 98.8 ??F (37.1 ??C), temperature sourceOral, resp. rate 16, height 1.626 m (5' 4), weight 95.8 kg (211 lb 3.2 oz), SpO2 96 %. Wt Readings from Last 3 Encounters: 06/08/14 95.8 kg (211 lb 3.2 oz) 06/08/14 95.8 kg (211 lb 3.2 oz) 05/08/14 83.779 kg (184 lb 11.2 oz) Intake/Output Summary (Last 24 hours) at 06/08/14 0922 Last data filed at 06/08/14 0600 Gross per 24 hour Intake 1470 ml Output 0 ml Net 1470 ml GENERAL APPEARANCE: pleasant, NAD, alert, lying flat on back in bed HEENT: Blindness RESP: lungs cta b c good efforts, no crackles, rhonchi or wheezes CV: RRR c 2/6 m, nl S1/S2 ABDOMEN: o/s/nt/nd, bs present EXTREMITIES/SKIN: no ble edema; + L thigh VAC - non-tender Pt seen on HD. Stable run. Good BFR via LLG. Data: CBC RESULTS: Recent Labs Lab 06/08/1443 06/07/14 0741 06/05/14 0739 06/04/142011 WBC 6.8 3.8* -- -- RBC 3.12* 3.25* -- -- HGB 7.9* 8.2* -- -- HCT 26.6* 28.3* -- -- PLT 118* 133* 127* 123* Basic Metabolic Panel: Recent Labs Lab 06/08/1443 06/07/14 0741 06/06/14 0806/05/14 0739 06/04/14 1315 NA -- -- 129* -- -- POTASSIUM 6.2* 4.8 4.8 4.3 3.5 CHLORIDE -- -- 93* -- -- CO2 -- -- 25 -- -- BUN -- -- 59* -- -- CR -- -- 8.94* -- -- GLC -- -- 93 106* -- JON -- -- 8.1* -- -- INR Recent Labs Lab 06/08/1443 06/07/1474006/06/1482906/05/14 0739 INR 1.49* 1.34* 1.43* 1.68* Attestation: I have reviewed today's relevant vital signs, notes, medications, labs and imaging. Chi Brunson MD [facility] - Nephrology [phone] Jaxon Buenrostro MD - 06/08/2014 9:14 AM CDT Vascular Surgery Progress Note S: No complaints. O: Vitals: BP Min: 155/75 Max: 171/76 Temp Av.4 ??F (36.9 ??C) Min: 97.2 ??F (36.2 ??C) Max: 98.9 ??F (37.2 ??C) Pulse Av.6 Min: 81 Max: 92 Physical Exam: Left thigh VAC working well. On dialysis via left thigh PTFE - working well. Culure from wound= Staph aureus. On Nafcillin IV. Assessment/Plan: Change VAC at bedside. Wound needs to granulate in prior to discharge due to bleeding risk. Watch diet due to high Potassium. Back on Coumadin. . Rani HARPER Jaxon Buenrostro MD - 06/07/2014 12:40 PM CDT Vascular Surgery Progress Note Doing well, no complaints. Dialysis went well yesterday. AF/VSS NIWB, RRR Wound with granulation tissue at base and graft now covered, moderate SS drainage Good distal pulses, excellent thrill in graft Wound vac placed at bedside under sterile conditions. Continue diabetic diet, warfarin, POLICY ANALYST meds. Encourage activity Emi Benedict, Surgery Resident [phone] Staff: Agree with above. VAC now on wound. Jaxon Buenrostro MD Stacy Del Rio RN - 06/06/2014 10:43 AM CDT DIALYSIS PROCEDURE NOTE POTASSIUM 4.8 06/06/2014 HGB 10.5 06/21/2013 Weight: 83.7 kg (184 lb 8.4 oz) (standing wt.) Pt dialyzed for 3.75 hrs via LLG, BFR 450 with a net volume removal of 3 L on K3 bath. Heparin given on run: 0 units Complications: none Medications given: Epogen Pt seen by Dr. Brunson during treatment EDW 82.5 kg, post run weight 80.7 kg Pt received education on procedure and ESRD while on dialysis. See [facility] dialysis flowsheet for details of dialysis run and post run report hand off. Transducer protector checked Q 15 minutes, dry at each check Pt arrived to dialysis via bed, left via bed Pt dialyzes TThSat in [place] alarms on for run . Post run pt assessment charted in [facility] on [facility] flowsheet Jaxon Buenrostro MD - 06/06/2014 6:58 AM CDT Vascular Surgery Progress Note Doing well without pain. AF/VSS Wound with granulation tissue at base but graft still exposed, moderate SS drainage Ji comer May be ready for wound vac tomorrow or Tuesday. Continue diabetic diet, warfarin, POLICY ANALYST meds. Dialysis today. OK to restart lisinopril. Vesta Burgos Surgery Resident [phone] Staff: Patient on dialysis using left PTFE proximal and distal to open wound-- working well. ? VAC tomorrow. Trying to salvage graft due to limited access options. Jaxon Buenrostro MD AKT Jaxon Buenrostro MD - 06/05/2014 7:54 AM CDT Vascular Surgery Progress Note - G4 Doing well with minimal pain this am. Feeling hungry. No other complaints. AF/VSS Incision with SS drainage - slight hematoma at base of wound but no active bleeding seen, clean tissue at wound base Good thrill in graft, 2+ DP pulse NIWB 49 YOM POD 1 s/p I&D of femoral PTFE graft. Wound appears clean; will continue daily MD dressings. Continue vancomycin. SSI. OK to restart warfarin today. Vesta Burgos Surgery Resident [phone] Staff: As above. Wd=clean with no drainage. +3 left DP pulse. Bedside dressing change in AM--? VAC. IV Vancomycin. Dialysis q T-TH-Sat. Jaxon Buenrostro MD AKT Rand Benedict MD - 06/04/2014 6:16 PM CDT Surgery Post Op Check - G4 Pt doing well with minimal pain. Eager to eat dinner. BP 143/69 Temp(Src) 97.8 ??F (36.6 ??C) (Temporal) Resp 12 Ht 1.626 m (5' 4) Wt 83.87 kg (184 lb 14.4 oz) BMI 31.72 kg/m2 SpO2 100% Leg w/wp, 2+ DP pulse Graft with palpable thrill, dressing with minimal serous drainage 49 YOM POD 0 s/p wound debridement and closure of defect in femoral PTFE graft, doing well. Will continue daily wet to dry dressings for now; may eventually use wound vac or delayed primary closure. Continue diabetic diet, prn po pain meds, activity as tolerated. Emi Benedict, G4 Surgery Resident [phone] documented in this encounter Consult Notes Chi Brunsno MD - 06/06/2014 10:36 AM CDT RENAL CONSULTATION NOTE REFERRING MD: Drs. Benedict/Rani REASON FOR CONSULTATION: ESKD HPI: 49 m c ESKD 2 HTN/DM2, who dialyses TRS via L fem graft at the [facility] under the care of Dr. Holman, presented to [facility] electively for repair of his L fem graft that had wound breakdown. Pt had a debridement of the graft and he was found to have an infected hematoma. Currently, the wound has been left open, but packed, and he is due for possible VAC placement tmrw. On dialysis, the pt feels ok. Denies f/c/n/v/d/l/cramping. States that he is eating ok. No cp/sob. ROS: A complete review of systems was [...] apnea CPAP ??? Chronic in-center hemodialysis status PSH: Past Surgical History Procedure Laterality Date [...] FEMORAL VEIN STENT, GRAFT EMBOLECTOMY; Surgeon: Jaxon Bunerostro MD; Location: [facility] OR ??? Thrombectomy lower [...] Surgeon: Jaxon Buenrostro MD; Location: [facility] MEDICATIONS: ??? sodium chloride 0.9 % 250-1,000 mL Intravenous Once in dialysis ??? epoetin mauricio (EPOGEN,PROCRIT) inj ESRD 11,000 Units Intravenous See Admin Instructions ??? epoetin mauricio ??? epoetin mauricio ??? insulin aspart 1-3 Units Subcutaneous TID AC ??? insulin aspart 1-3 Units Subcutaneous At Bedtime ??? B nkhnqio-R-dpmom acid 1 capsule Oral At Bedtime ??? bisacodyl 10 mg Oral User Specified ??? calcium acetate 1,334-2,001 mg Oral TID w/meals ??? cholecalciferol (vitamin D) tablet 1,000 Units 1,000 Units Oral Daily ??? simvastatin 40 mg Oral At Bedtime ??? sodium chloride (PF) 3 mL Intravenous Q8H ??? HEParin 5,000 Units Subcutaneous Q8H ??? metoprolol (LOPRESSOR) tablet 100 mg 100 mg Oral User Specified ??? vancomycin place watson - receiving intermittent dosing 1 each Does not apply See Admin Instructions ALLERGIES: Allergies as of 05/31/2014 - reviewed 05/08/2014 Allergen Reaction Noted ??? Aspirin [dihydroxyaluminum aminoacetate] GI Disturbance 07/16/2011 FH: History reviewed. No pertinent family history. SH: History Social History ??? Marital Status: [...] file Social History Narrative PHYSICAL EXAM: BP 99/46 Pulse 74 Temp(Src) 97.7 ??F (36.5 ??C) (Oral) Resp 16 Ht 1.626 m (5' 4) Wt 83.7 kg (184 lb 8.4 oz) BMI 31.66 kg/m2 SpO2 100% GENERAL: pleasant, alert, NAD HEENT: Normocephalic. No gross abnormalities. Pupils equal. Poor dentition. CV: RRR c 1/6 murmurs, no clicks, gallops, or rubs, no ble edema RESP: Clear bilaterally with good efforts GI: Abdomen o/s/nt/nd. No masses, organomegaly MUSCULOSKELETAL: extremities nl - no gross deformities noted NEURO: Moves extremities. PSYCH: mood good, affect appropriate LYMPH: No palpable ant/post cervical and supraclavicular adenopathy Pt seen on HD. Stable run. - 3-4 kg uf goal. BFR ok via L fem graft. Wound dressed. LABS: CBC RESULTS: Recent Labs Lab 06/05/14 0739 06/04/142011 PLT 127* 123* BMP RESULTS: Recent Labs Lab 06/06/14 0830 06/05/14 0739 06/04/14 1315 NA 129* -- -- POTASSIUM 4.8 4.3 3.5 CHLORIDE 93* -- -- CO2 25 -- -- BUN 59* -- -- CR 8.94* -- -- GLC 93 106* -- JON 8.1* -- -- INR Recent Labs Lab 06/06/14 0830 06/05/14 0739 06/04/14 1315 INR 1.43* 1.68* 1.93* DIAGNOSTICS: Reviewed A/P: 49 m c ESKD, infected hematoma s/p debridement. 1. ESKD. Pt dialysing per TRS schedule. No issues c HD. A. Continue same schedule. Next run on Tuesday. 2. Infected hematoma/wound. Followed closely by Vasc Surg. On Vanco. A. Per Surgery. 3. Anemia. Pt's hb not checked here, but he receives EPO c HD. A. Continue EPO c HD. B. Check hb in am. 4. HTN. BP is controlled c meds, volume removal. A. Continue same meds/doses. B. Volume removal as able. 5. FEN. Pt's electrolytes are all ok x Na a little low - likely volume-related. K is ok on current diet. A. Follow labs. B. Continue diabetic diet. Thank you for this consultation. We will follow c you. Please call if any questions. Chi Brunson MD [facility] - Nephrology [phone] documented in this encounter Nursing Notes Ashely Lopez, RN - 06/04/2014 1:33 PM CDT PT. IS LETHARGIC, FALLS ASLEEP WHILE TALKING, MUMBLES WORDS. MOTHER STATES THIS IS HIS BASELINE. CONSENT SIGNED BY MOTHER. Megan Michelle RN - 06/03/2014 1:43 PM CDT Gave Thelma preop information. Patient continues to be on coumadin. Thelma states no one had informed them to stop the coumadin. Thelma is going to call Dr Buenrostro's office to verify coumadin order. documented in this encounter Miscellaneous Notes Plan of Care - Jonn Strickland, MACHINERY RIGGER - 06/20/2014 5:12 PM CDT Problem: General Rehab Plan of Care Goal: Speech Language Pathology Goals The patient and/or their it sales representative will achieve their patient-specific goals related to the plan of care. The patient-specific goals include the following by 06/17/2014. Swallow: 1. Pt will tolerate DDL3 with thin liquids from a cup with no overt signs of difficulty using safe swallow strategies: multiple swallows, small bites and sips, alternate liquids and solids, NO STRAWS, sitting upright for all intake. 2. VFSS to be completed to evaluation safest least restrictive diet with strategies. GOAL MET Outcome: Completed Date Met: 06/20/14 Speech Language Therapy Discharge Summary Reason for therapy discharge: Discharged to home with home therapy. Progress towards therapy goal(s): Goals partially met. Barriers to achieving goals: limited tolerance for therapy. Therapy recommendation(s): Continued therapy is recommended. Rationale/Recommendations: due to pharyngeal weakness - see results and recommendations from videoswallow study below:. MACHINERY RIGGER: Video swallow study completed. Patient presents with mild-moderate oropharyngeal dysphagia characterized by reduced oral bolus control and AP transit, piecemeal deglutition, delayed swallow to level of pyriform sinuses across liquid consistencies resulting in transient flash laryngeal penetrationof all liquid consistencies. No aspiration occurred during today's study. No pharyngeal residue remained. Note impulsivity with feeding unless cued. Recommend continue dysphagia diet level 3 with thin liquids given 1:1 supervision and swallow strategies (upright positioning, NO straws, small bites/sips one at a time, double swallow, slow rate). Patient needs constant supervision with p.o. Intake due to impulsivity. Consulted with RN. Recommend home MACHINERY RIGGER at discharge. Plan of Care - Marichuy Bishop RN - 06/20/2014 2:30 PM CDT Problem: IP GENERAL POC-ADULT,OB,BEHAVIORAL FVCPM Goal: Individualization/Patient-Specific Goal (Adult,OB,Behavioral 06/04:IRRIGATION,DEBRIDEMENT,AND REPAIR LEFT INFECTED PROFUNDA FEMORIS ARTERY TO SUPERFICIAL FEMORAL VEIN LOOP PTFE GRAFT Hx: Prader-Willi Syndrom Vac in place at left thigh/fistula area CM... Pt???s goal is to return home where he lives with his aunt who is also his BANKRUPTCY ATTORNEY. AM 06/11 Outcome: No Change Left thigh dressing CD&I. DC to home today. DC instructions reviewed with both patient (in room)and with BANKRUPTCY ATTORNEYThelma, on phone. Both stated an understanding. DC to home once transportation here. Plan of Care - Jonn Strickland SLP - 06/20/2014 12:49 PM CDT Problem: General Rehab Plan of Care Goal: Speech Language Pathology Goals The patient and/or their it sales representative will achieve their patient-specific goals related to the plan of care. The patient-specific goals include the following by 06/17/2014. Swallow: 1. Pt will tolerate DDL3 with thin liquids from a cup with no overt signs of difficulty using safe swallow strategies: multiple swallows, small bites and sips, alternate liquids and solids, NO STRAWS, sitting upright for all intake. 2. VFSS to be completed to evaluation safest least restrictive diet with strategies. GOAL MET Outcome: Therapy, progress toward functional goals as expected MACHINERY RIGGER: Pt seen for dysphagia diet education, prior to discharge today, and at end of dialysis and after transition to patient room. MACHINERY RIGGER provided handout information on results of videoswallow study for home health and also diet recs for modified dysphagia level 3 diet. pt would benefit from follow up home health MACHINERY RIGGER services. Plan of Care - Mo Warner RN - 06/20/2014 3:11 AM CDT Problem: IP GENERAL POC-ADULT,OB,BEHAVIORAL FVCPM Goal: Individualization/Patient-Specific Goal (Adult,OB,Behavioral 06/04:IRRIGATION,DEBRIDEMENT,AND REPAIR LEFT INFECTED PROFUNDA FEMORIS ARTERY TO SUPERFICIAL FEMORAL VEIN LOOP PTFE GRAFT Hx: Prader-Willi Syndrom Vac in place at left thigh/fistula area CM... Pt???s goal is to return home where he lives with his aunt who is also his BANKRUPTCY ATTORNEY. AM 9 Outcome: No Change VSS. Denies pain. Tele NSR w/ st elevation. LLE fistula cdi, bruit/thrill present. Plan for dialysisin am then d/c. Plan of Care - Wen Mueller RN - 06/19/2014 10:19 PM CDT Problem: IP GENERAL POC-ADULT,OB,BEHAVIORAL FVCPM Goal: Individualization/Patient-Specific Goal (Adult,OB,Behavioral 06/04:IRRIGATION,DEBRIDEMENT,AND REPAIR LEFT INFECTED PROFUNDA FEMORIS ARTERY TO SUPERFICIAL FEMORAL VEIN LOOP PTFE GRAFT Hx: Prader-Willi Syndrom Vac in place at left thigh/fistula area CM... Pt???s goal is to return home where he lives with his aunt who is also his BANKRUPTCY ATTORNEY. AM 06/11 Outcome: No Change Tele NSR. Denies pain. Bruit and thrill present. Drsg intact. Plan for dialysis tomorrow and then discharge home. Plan of Care - Zuleyka Moore, KRISTEN - 06/19/2014 4:02 PM CDT Problem: General Rehab Plan of Care Goal: Speech Language Pathology Goals The patient and/or their it sales representative will achieve their patient-specific goals related to the plan of care. The patient-specific goals include the following by 06/17/2014. Swallow: 1. Pt will tolerate DDL3 with thin liquids from a cup with no overt signs of difficulty using safe swallow strategies: multiple swallows, small bites and sips, alternate liquids and solids, NO STRAWS, sitting upright for all intake. 2. VFSS to be completed to evaluation safest least restrictive diet with strategies. MACHINERY RIGGER - Unable to see patient for swallow Tx this pm as he is currently in dialysis and unable to sit up at 90 degrees. Plan to continue Tx on 06/20 as able. Plan of Care - Marichuy Bishop RN - 06/19/2014 2:38 PM CDT Problem: IP GENERAL POC-ADULT,OB,BEHAVIORAL FVCPM Goal: Individualization/Patient-Specific Goal (Adult,OB,Behavioral 06/04:IRRIGATION,DEBRIDEMENT,AND REPAIR LEFT INFECTED PROFUNDA FEMORIS ARTERY TO SUPERFICIAL FEMORAL VEIN LOOP PTFE GRAFT Hx: Prader-Willi Syndrom Vac in place at left thigh/fistula area CM... Pt???s goal is to return home where he lives with his aunt who is also his BANKRUPTCY ATTORNEY. AM 9 Outcome: No Change Dialysis run today. Denies pain. Left groin/leg incision CD&I. Plan of Care - Mo Warner RN - 06/19/2014 5:05 AM CDT Problem: IP GENERAL POC-ADULT,OB,BEHAVIORAL FVCPM Goal: Individualization/Patient-Specific Goal (Adult,OB,Behavioral 06/04:IRRIGATION,DEBRIDEMENT,AND REPAIR LEFT INFECTED PROFUNDA FEMORIS ARTERY TO SUPERFICIAL FEMORAL VEIN LOOP PTFE GRAFT Hx: Prader-Willi Syndrom Vac in place at left thigh/fistula area CM... Pt???s goal is to return home where he lives with his aunt who is also his BANKRUPTCY ATTORNEY. AM 92 Outcome: No Change VSS. Denies pain. CMS intact. Plan to vac pull this am. Plan of Care - Felipa Daugherty RN - 06/18/2014 10:17 PM CDT Problem: IP GENERAL POC-ADULT,OB,BEHAVIORAL FVCPM Goal: Individualization/Patient-Specific Goal (Adult,OB,Behavioral 06/04:IRRIGATION,DEBRIDEMENT,AND REPAIR LEFT INFECTED PROFUNDA FEMORIS ARTERY TO SUPERFICIAL FEMORAL VEIN LOOP PTFE GRAFT Hx: Prader-Willi Syndrom Vac in place at left thigh/fistula area CM... Pt???s goal is to return home where he lives with his aunt who is also his BANKRUPTCY ATTORNEY. AM 06/11 Outcome: No Change Taking robitussin for cough. Wound vac intact. Dressing CDI. Plan of Care - Britt Manzanares SLP - 06/18/2014 4:15 PM CDT Problem: General Rehab Plan of Care Goal: Speech Language Pathology Goals The patient and/or their it sales representative will achieve their patient-specific goals related to the plan of care. The patient-specific goals include the following by 06/17/2014. Swallow: 1. Pt will tolerate DDL3 with thin liquids from a cup with no overt signs of difficulty using safe swallow strategies: multiple swallows, small bites and sips, alternate liquids and solids, NO STRAWS, sitting upright for all intake. 2. VFSS to be completed to evaluation safest least restrictive diet with strategies. MACHINERY RIGGER: attempted to see patient this am and patient was npo for procedure. However, patient then in dialysis and unable to awaken. Will reschedule for 06/19 Plan of Care - Mo Warner RN - 06/18/2014 5:13 AM CDT Problem: IP GENERAL POC-ADULT,OB,BEHAVIORAL FVCPM Goal: Individualization/Patient-Specific Goal (Adult,OB,Behavioral 06/04:IRRIGATION,DEBRIDEMENT,AND REPAIR LEFT INFECTED PROFUNDA FEMORIS ARTERY TO SUPERFICIAL FEMORAL VEIN LOOP PTFE GRAFT Hx: Prader-Willi Syndrom Vac in place at left thigh/fistula area CM... Pt???s goal is to return home where he lives with his aunt who is also his BANKRUPTCY ATTORNEY. AM 9/2 Outcome: No Change VSS ex HTN @ 0450 sbp in 180s prn given. Denies pain. Up sba. Sm BM x1. Vac intact, cdi to fistulagram then dialysis this am. Pulses/cms intact. Fistula intact bruit present. Pt NPO Plan of Care - Felipa Daugherty RN - 06/18/2014 1:42 AM CDT Problem: IP GENERAL POC-ADULT,OB,BEHAVIORAL FVCPM Goal: Individualization/Patient-Specific Goal (Adult,OB,Behavioral 06/04:IRRIGATION,DEBRIDEMENT,AND REPAIR LEFT INFECTED PROFUNDA FEMORIS ARTERY TO SUPERFICIAL FEMORAL VEIN LOOP PTFE GRAFT Hx: Prader-Willi Syndrom Vac in place at left thigh/fistula area CM... Pt???s goal is to return home where he lives with his aunt who is also his BANKRUPTCY ATTORNEY. AM 9/2 Outcome: No Change Denies pain. Tele SR with PVCs with ST elevation. K+ 6.3 Kayexalate 30 gm given. Wound vac intact. Provider Notification - Felipa Daugherty RN - 06/17/2014 8:[address] Mason called on status of pt. Nurse mentioned K+ of 6.3. Tele SR with PVC's and ST elevation with heart rate in the 80's. QRS 0.08. Kayexalate 30 gm ordered. Per MD, call if QRS widens. Provider Notification - Nayeli Childress RN - 06/17/2014 6:35 PM CDT Call placed to Dr. Mason for K+ 6.2. See New orders Plan of Care - Nayeli Childress RN - 06/17/2014 1:22 PM CDT Problem: IP GENERAL POC-ADULT,OB,BEHAVIORAL FVCPM Goal: Individualization/Patient-Specific Goal (Adult,OB,Behavioral 06/04:IRRIGATION,DEBRIDEMENT,AND REPAIR LEFT INFECTED PROFUNDA FEMORIS ARTERY TO SUPERFICIAL FEMORAL VEIN LOOP PTFE GRAFT Hx: Prader-Willi Syndrom Vac in place at left thigh/fistula area CM... Pt???s goal is to return home where he lives with his aunt who is also his BANKRUPTCY ATTORNEY. AM 06/11 Outcome: No Change Pt orientation:A/O x3 Pain level/management:Denies Activity level:SBA Tests/procedures for next shift:Dialysis and fistulagram 06/18/14 DC date:06/18 Info related to surg/dx:Pt very quiet today. LS diminished, +BS, +flatus, Wound VAC intact, +bruit and thrill. Pt needs reminders to eat slower and tiny bites. Plan of Care - Georgia Tanner MACHINERY RIGGER - 06/17/2014 11:47 AM CDT Problem: General Rehab Plan of Care Goal: Speech Language Pathology Goals The patient and/or their it sales representative will achieve their patient-specific goals related to the plan of care. The patient-specific goals include the following by 06/17/2014. Swallow: 1. Pt will tolerate DDL3 with thin liquids from a cup with no overt signs of difficulty using safe swallow strategies: multiple swallows, small bites and sips, alternate liquids and solids, NO STRAWS, sitting upright for all intake. 2. VFSS to be completed to evaluation safest least restrictive diet with strategies. Outcome: Therapy, progress towards functional goals is fair MACHINERY RIGGER: Video swallow study completed. Patient presents with mild-moderate oropharyngeal dysphagia characterized by reduced oral bolus control and AP transit, piecemeal deglutition, delayed swallow to level of pyriform sinuses across liquid consistencies resulting in transient flash laryngeal penetrationof all liquid consistencies. No aspiration occurred during today's study. No pharyngeal residue remained. Note impulsivity with feeding unless cued. Recommend continue dysphagia diet level 3 with thin liquids given 1:1 supervision and swallow strategies (upright positioning, NO straws, small bites/sips one at a time, double swallow, slow rate). Patient needs constant supervision with p.o. Intake due to impulsivity. Consulted with RN. Recommend home MACHINERY RIGGER at discharge. Plan of Care - Nola Lizarraga RN - 06/17/2014 7:57 AM CDT Problem: IP GENERAL POC-ADULT,OB,BEHAVIORAL [facility]M Goal: Individualization/Patient-Specific Goal (Adult,OB,Behavioral 06/04:IRRIGATION,DEBRIDEMENT,AND REPAIR LEFT INFECTED PROFUNDA FEMORIS ARTERY TO SUPERFICIAL FEMORAL VEIN LOOP PTFE GRAFT Vac in place at left thigh/fistula area CM... Pt???s goal is to return home where he lives with his aunt who is also his BANKRUPTCY ATTORNEY. AM 06/11 Outcome: No Change VSS ex BP in 160's-170's. Up SBA. Denies pain. Wound vac in place. [place] diet, needs reminders to double swallow, take small bites and eat slow. Calls appropriately. Problem: Fall/Trauma/Injury Risk (Adult, Obstetrics) Goal: Identify Signs and Symptoms and Related Risk Factors Signs and symptoms and related risk factors are identified upon initiation of Human Response Clinical Practice Guideline (CPG) Outcome: No Change Problem: Perioperative Period (Adult, Obstetrics) Goal: Prevent/Manage Potential Problems Outcome: No Change Plan of Care - Tyrel Todd RN - 06/16/2014 10:56 PM CDT Problem: IP GENERAL POC-ADULT,OB,BEHAVIORAL [facility]CPM Goal: Individualization/Patient-Specific Goal (Adult,OB,Behavioral 06/04:IRRIGATION,DEBRIDEMENT,AND REPAIR LEFT INFECTED PROFUNDA FEMORIS ARTERY TO SUPERFICIAL FEMORAL VEIN LOOP PTFE GRAFT Vac in place at left thigh/fistula area CM... Pt???s goal is to return home where he lives with his aunt who is also his BANKRUPTCY ATTORNEY. AM 06/11 Outcome: Improving VSS, denies pain. Wound Vac intact. Bruit present at graft, pulses present. Needs encouragement to take small bites and swallow twice. Plan of Care - Rula Sosa RN - 06/16/2014 2:22 PM CDT Problem: IP GENERAL POC-ADULT,OB,BEHAVIORAL [facility]CPM Goal: Individualization/Patient-Specific Goal (Adult,OB,Behavioral 06/04:IRRIGATION,DEBRIDEMENT,AND REPAIR LEFT INFECTED PROFUNDA FEMORIS ARTERY TO SUPERFICIAL FEMORAL VEIN LOOP PTFE GRAFT Vac in place at left thigh/fistula area CM... Pt???s goal is to return home where he lives with his aunt who is also his BANKRUPTCY ATTORNEY. AM 06/11 Outcome: No Change Hypertensive. Wound vac WNL. Thrill +. Coughing with eating. Speech ordered dysphagia 3 diet with supervision. Video swallow ordered. Lungs diminished. Up with assist of 1. Denies pain. Needs new IV - IV team called and message left. Plan of Care - Jayshree Miller SLP - 06/16/2014 11:19 AM CDT Problem: General Rehab Plan of Care Goal: Speech Language Pathology Goals The patient and/or their it sales representative will achieve their patient-specific goals related to the plan of care. The patient-specific goals include the following by 06/17/2014. Swallow: 1. Pt will tolerate DDL3 with thin liquids from a cup with no overt signs of difficulty using safe swallow strategies: multiple swallows, small bites and sips, alternate liquids and solids, NO STRAWS, sitting upright for all intake. 2. VFSS to be completed to evaluation safest least restrictive diet with strategies. 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 Pt see in chair for Evaluation and p.o trials. Puree, thin from a Straw, semisolid and solids all resulted in pharyngeal residue after initial swallow and no awareness of difficulty. Pt was able to demonstrate use of strategies to clear stasis given verbal cues with each bite. Successful vocal clearing noted with multiple swallow and or liquid wash (thin) from a cup. Due to reduced laryngeal elevation and poor awareness of difficulty Pt is at high risk for aspiration with suspected silent aspiration. Recommend: VFSS to evaluate safest diet and successful strategies, Dysphagia Diet Level 3 with thin with full supervision for use of NO STRAWS, multiple swallows, small bites and sips, alternate liquids and solids while sitting upright in chair. D/C to facility with supervision and OP ST to follow up. Plan of Care - Mo Warner RN - 06/16/2014 5:15 AM CDT Problem: IP GENERAL POC-ADULT,OB,BEHAVIORAL [facility]M Goal: Individualization/Patient-Specific Goal (Adult,OB,Behavioral 06/04:IRRIGATION,DEBRIDEMENT,AND REPAIR LEFT INFECTED PROFUNDA FEMORIS ARTERY TO SUPERFICIAL FEMORAL VEIN LOOP PTFE GRAFT Vac in place at left thigh/fistula area CM... Pt???s goal is to return home where he lives with his aunt who is also his BANKRUPTCY ATTORNEY. AM 9/2 Outcome: No Change VSS. Denies pain. Vac intact cdi. Fistula Wnl bruit present. Pulses/cms intact. Plan of Care - Tyrel Todd RN - 06/15/2014 10:38 PM CDT Problem: IP GENERAL POC-ADULT,OB,BEHAVIORAL [facility]M Goal: Individualization/Patient-Specific Goal (Adult,OB,Behavioral 06/04:IRRIGATION,DEBRIDEMENT,AND REPAIR LEFT INFECTED PROFUNDA FEMORIS ARTERY TO SUPERFICIAL FEMORAL VEIN LOOP PTFE GRAFT Vac in place at left thigh/fistula area CM... Pt???s goal is to return home where he lives with his aunt who is also his BANKRUPTCY ATTORNEY. AM 9/2 Outcome: Improving VSS with exception of hypertension. Wound Vac in place and WDL. Patient arrived from dialysis with Dressing over left groin graft site, CDI with audible bruit. Both of patients peripheral IV's bad, newIV placed by anaesthesia. Plan of Care - Nisha Quijano RN - 06/15/2014 2:51 PM CDT Problem: IP GENERAL POC-ADULT,OB,BEHAVIORAL [facility]M Goal: Individualization/Patient-Specific Goal (Adult,OB,Behavioral 06/04:IRRIGATION,DEBRIDEMENT,AND REPAIR LEFT INFECTED PROFUNDA FEMORIS ARTERY TO SUPERFICIAL FEMORAL VEIN LOOP PTFE GRAFT Vac in place at left thigh/fistula area CM... Pt???s goal is to return home where he lives with his aunt who is also his BANKRUPTCY ATTORNEY. AM 92 Outcome: No Change Hypertensive at times. No pain. Cough continues. Lungs intermittent wheezes. Wound vac in place. Left groin fistula in place with thrill and bruit. Up with SBA. Plan of Care - Guru Pollard RN - 06/15/2014 7:30 AM CDT Problem: IP GENERAL POC-ADULT,OB,BEHAVIORAL [facility]M Goal: Individualization/Patient-Specific Goal (Adult,OB,Behavioral 06/04:IRRIGATION,DEBRIDEMENT,AND REPAIR LEFT INFECTED PROFUNDA FEMORIS ARTERY TO SUPERFICIAL FEMORAL VEIN LOOP PTFE GRAFT Vac in place at left thigh/fistula area CM... Pt???s goal is to return home where he lives with his aunt who is also his BANKRUPTCY ATTORNEY. AM 92 Outcome: No Change SBP 190-max overnight down to 163 with prn hydralazine (for SBP>180 per MD) given x2 overnight, asymptomatic, denies SOB or any pain. +thrill/bruit on L femoral fistula. Dry non-productive cough, gave prn robitussin. Plan of Care - Heidi Fish RN - 06/14/2014 11:45 PM CDT Problem: IP GENERAL POC-ADULT,OB,BEHAVIORAL [facility]M Goal: Individualization/Patient-Specific Goal (Adult,OB,Behavioral 06/04:IRRIGATION,DEBRIDEMENT,AND REPAIR LEFT INFECTED PROFUNDA FEMORIS ARTERY TO SUPERFICIAL FEMORAL VEIN LOOP PTFE GRAFT Vac in place at left thigh/fistula area CM... Pt???s goal is to return home where he lives with his aunt who is also his BANKRUPTCY ATTORNEY. AM 9 Outcome: No Change Patient Axo-forgetful at times. Up with SBA. No c/o pain. BP has been running high, given scheduled meds and had PRN hydralazine on day shift. Had large BM- sent stool for occult blood came back negative. Has dry non productive frequent cough-takes robitussin every 4 hours and PRN cepacol lozenges. Lungs clear diminished. Dialysis shunt +thrill and bruit. Wound vac site intact. Plan of Care - Nisha Quijano RN - 06/14/2014 3:45 PM CDT Problem: IP GENERAL POC-ADULT,OB,BEHAVIORAL [facility]M Goal: Individualization/Patient-Specific Goal (Adult,OB,Behavioral 06/04:IRRIGATION,DEBRIDEMENT,AND REPAIR LEFT INFECTED PROFUNDA FEMORIS ARTERY TO SUPERFICIAL FEMORAL VEIN LOOP PTFE GRAFT Vac in place at left thigh/fistula area CM... Pt???s goal is to return home where he lives with his aunt who is also his BANKRUPTCY ATTORNEY. AM 06/11 Outcome: No Change VSS. A/O but forgetful with some learning deficit. No pain. Wnd vac CDI. Rt groin fistula CDI. Bruit/ thrill present. No void this shift. Passing gas. Up with SBA. Plan of Care - Ira Wells RN - 06/14/2014 7:35 AM CDT Problem: IP GENERAL POC-ADULT,OB,BEHAVIORAL [facility]M Goal: Individualization/Patient-Specific Goal (Adult,OB,Behavioral 06/04:IRRIGATION,DEBRIDEMENT,AND REPAIR LEFT INFECTED PROFUNDA FEMORIS ARTERY TO SUPERFICIAL FEMORAL VEIN LOOP PTFE GRAFT Vac in place at left thigh/fistula area CM... Pt???s goal is to return home where he lives with his aunt who is also his BANKRUPTCY ATTORNEY. AM 9/2 Outcome: No Change Plan of Care - Katja Abdalla RN - 06/13/2014 10:56 PM CDT Problem: IP GENERAL POC-ADULT,OB,BEHAVIORAL [facility]M Goal: Individualization/Patient-Specific Goal (Adult,OB,Behavioral 06/04:IRRIGATION,DEBRIDEMENT,AND REPAIR LEFT INFECTED PROFUNDA FEMORIS ARTERY TO SUPERFICIAL FEMORAL VEIN LOOP PTFE GRAFT Vac in place at left thigh/fistula area CM... Pt???s goal is to return home where he lives with his aunt who is also his BANKRUPTCY ATTORNEY. AM 06/11 Outcome: No Change Disoriented to time. Denies pain. Would van to negative pressure. Non-productive dry cough, robitussin given x2. Expiratory wheezes on exesion. Cooperative with fluid restriction. Fistula WNL. Plan of Care - Mirlande Posey - 06/13/2014 3:08 PM CDT Problem: IP GENERAL POC-ADULT,OB,BEHAVIORAL [facility]M Goal: Individualization/Patient-Specific Goal (Adult,OB,Behavioral 06/04:IRRIGATION,DEBRIDEMENT,AND REPAIR LEFT INFECTED PROFUNDA FEMORIS ARTERY TO SUPERFICIAL FEMORAL VEIN LOOP PTFE GRAFT Vac in place at left thigh/fistula area CM... Pt???s goal is to return home where he lives with his aunt who is also his BANKRUPTCY ATTORNEY. AM 06/11 Outcome: No Change Pt in good spirits after dialysis, denies pain, c/o dry cough, robitussin ordered. Plan of Care - Aleta Edward RN - 06/13/2014 5:14 AM CDT Problem: IP GENERAL POC-ADULT,OB,BEHAVIORAL [facility]M Goal: Individualization/Patient-Specific Goal (Adult,OB,Behavioral 06/04:IRRIGATION,DEBRIDEMENT,AND REPAIR LEFT INFECTED PROFUNDA FEMORIS ARTERY TO SUPERFICIAL FEMORAL VEIN LOOP PTFE GRAFT Vac in place at left thigh/fistula area CM... Pt???s goal is to return home where he lives with his aunt who is also his BANKRUPTCY ATTORNEY. AM 9 Outcome: No Change A&O x 4. Mild abd pain- controlled with PRN [place]. Up w/ SBA to bathroom. Voiding minimally d/t ESRD. 1500mL fluid restriction enforced. Wound vac intact. BPs remain elevated, but below the SBP >180 parameters for PRN hydralazine. Intermittent dry, nonproductive cough and occasional expiratory wheezes- Dylan HARPER notified, see note. Plan to have dialysis at 0800. Will continue to monitor. Problem: Fall/Trauma/Injury Risk (Adult, Obstetrics) Goal: Identify Signs and Symptoms and Related Risk Factors Signs and symptoms and related risk factors are identified upon initiation of Human Response Clinical Practice Guideline (CPG) Outcome: No Change Problem: Perioperative Period (Adult, Obstetrics) Goal: Prevent/Manage Potential Problems Outcome: No Change Provider Notification - Aleta Edward RN - 06/13/2014 3:56 AM CDT Pt's respiratory rate 20, reports mild SOB. Soft expiratory wheezes present on exertion/position changes. LS clear, diminished. O2 sats 100% on RA. (R) arm appearing swollen with taught skin and largerin circumference than (L) arm. Pt having difficulty verbalizing needs and states he doesn't feel right. Dylan HARPER, Dr. Hernandez, notified. Discussed patient's condition and possibility of pre- dialysis fluid overload r/t ESRD. Per MD, condition will most likely improve following dialysis this AM. Encouraged to continue to monitor and report any changes in condition. Plan of Care - Yolanda Ventura RN - 06/12/2014 7:31 PM CDT Problem: IP GENERAL POC-ADULT,OB,BEHAVIORAL [facility]M Goal: Individualization/Patient-Specific Goal (Adult,OB,Behavioral 06/04:IRRIGATION,DEBRIDEMENT,AND REPAIR LEFT INFECTED PROFUNDA FEMORIS ARTERY TO SUPERFICIAL FEMORAL VEIN LOOP PTFE GRAFT Vac in place at left thigh/fistula area CM... Pt???s goal is to return home where he lives with his aunt who is also his BANKRUPTCY ATTORNEY. AM 92 Outcome: Improving VSS, [place] controlling pain, wound vac intact, + pulses, tolerating meals, fluid restriction initiated. Lungs clear/ diminished bilaterally. BP remains elevated new medications started. Plan of Care - Mirlande Posey - 06/12/2014 3:59 PM CDT Problem: IP GENERAL POC-ADULT,OB,BEHAVIORAL [facility]CPM Goal: Individualization/Patient-Specific Goal (Adult,OB,Behavioral 06/04:IRRIGATION,DEBRIDEMENT,AND REPAIR LEFT INFECTED PROFUNDA FEMORIS ARTERY TO SUPERFICIAL FEMORAL VEIN LOOP PTFE GRAFT Vac in place at left thigh/fistula area CM... Pt???s goal is to return home where he lives with his aunt who is also his BANKRUPTCY ATTORNEY. AM 9 Outcome: No Change Pt resting between cares, expiratory wheezed noted anterior and posterior with Dr. Emerson made aware, fistula intact and wound vac intact. Provider Notification - Mirlande Posey - 06/12/2014 1:00 PM CDT Awaiting return call from Dr. Butler regarding hypertension unresolved with prn hydralazine. Plan of Care - Mo Warner RN - 06/12/2014 8:03 AM CDT Problem: IP GENERAL POC-ADULT,OB,BEHAVIORAL [facility]M Goal: Individualization/Patient-Specific Goal (Adult,OB,Behavioral 06/04:IRRIGATION,DEBRIDEMENT,AND REPAIR LEFT INFECTED PROFUNDA FEMORIS ARTERY TO SUPERFICIAL FEMORAL VEIN LOOP PTFE GRAFT Vac in place at left thigh/fistula area CM... Pt???s goal is to return home where he lives with his aunt who is also his BANKRUPTCY ATTORNEY. AM 06/11 Outcome: No Change VSS. CMS/Pulses intact. VAc intact cng this am. Bruit/thrill present. Plan of Care - Yolanda Ventura RN - 06/11/2014 8:29 PM CDT Problem: IP GENERAL POC-ADULT,OB,BEHAVIORAL [facility]CPM Goal: Individualization/Patient-Specific Goal (Adult,OB,Behavioral 06/04:IRRIGATION,DEBRIDEMENT,AND REPAIR LEFT INFECTED PROFUNDA FEMORIS ARTERY TO SUPERFICIAL FEMORAL VEIN LOOP PTFE GRAFT Vac in place at left thigh/fistula area CM... Pt???s goal is to return home where he lives with his aunt who is also his BANKRUPTCY ATTORNEY. AM 06/11 Outcome: Improving VSS, denies pain, Wound Vac WNL, HD today, no urine output, +BM, tolerating meals. Plan of Care - Stephanie Cardoza RN - 06/11/2014 6:52 AM CDT Problem: IP GENERAL POC-ADULT,OB,BEHAVIORAL [facility]CPM Goal: Plan of Care Review (Adult,OB,Behavioral) The patient and/or their it sales representative will communicate an understanding of their plan of care. Outcome: Declining BP elevated above parameters--requiring Hydralazine q4h past two shifts. Has been tachnipeic all shift with rates in mid 20's. Denies pain, lungs clear. IS encourage but only gets to 750. To have Dialysis this am. Wound vac to Left thigh draining watery yellow returns. Plan of Care - Tricia Shipley RN - 06/11/2014 12:04 AM CDT Problem: Perioperative Period (Adult, Obstetrics) Goal: Prevent/Manage Potential Problems Outcome: Improving HTN; prn Hydralazine given x 2. Up with SBA, ambulating halls x 1. LS slightly dim; pt reporting breathing harder 9pm: RR 24. Pt reporting feeling like a cold is coming on; cepastat lozenges given with some relief. Wound vac in place. Plan for dialysis tomorrow and then possible D/C. Plan of Care - Felipa Daugherty RN - 06/10/2014 5:13 AM CDT Problem: IP GENERAL POC-ADULT,OB,BEHAVIORAL [facility]CPM Goal: Individualization/Patient-Specific Goal (Adult,OB,Behavioral 06/04:IRRIGATION,DEBRIDEMENT,AND REPAIR LEFT INFECTED PROFUNDA FEMORIS ARTERY TO SUPERFICIAL FEMORAL VEIN LOOP PTFE GRAFT Vac in place at left thigh/fistula area Outcome: No Change Denies pain. Wound vac intact. HR 101. SBP 167/82. PRN hydralazine for sbp >180. Plan of Care - Esme Mcnair RN - 06/09/2014 11:20 PM CDT Problem: IP GENERAL POC-ADULT,OB,BEHAVIORAL [facility]CPM Goal: Individualization/Patient-Specific Goal (Adult,OB,Behavioral 06/04:IRRIGATION,DEBRIDEMENT,AND REPAIR LEFT INFECTED PROFUNDA FEMORIS ARTERY TO SUPERFICIAL FEMORAL VEIN LOOP PTFE GRAFT Vac in place at left thigh/fistula area Outcome: No Change VSS, no c/o pain, wound vac intact no drainage, CMS unchanged, right thigh fistula site intact, K 6.0 MD notified and orders obtained, will continue to monitor. Provider Notification - Esme Mcnair RN - 06/09/2014 10:[address] Brunson @ [phone], [phone] & [phone] in regards to continued elevated K @6.0, new orders received,see DEC, will recheck at midnight and call MD if level K >5.9 Plan of Care - Fern Lopez RN - 06/09/2014 6:50 PM CDT Problem: IP GENERAL POC-ADULT,OB,BEHAVIORAL [facility]VCPM Goal: Individualization/Patient-Specific Goal (Adult,OB,Behavioral 06/04:IRRIGATION,DEBRIDEMENT,AND REPAIR LEFT INFECTED PROFUNDA FEMORIS ARTERY TO SUPERFICIAL FEMORAL VEIN LOOP PTFE GRAFT Vac in place at left thigh/fistula area VSS. Baseline. CMS + to LE bilat. Wound vac changed today. + bruit and thrill to fistula. K+ 5.9 kayexalate 15mg given x2. Awaiting recheck at 2029. Provider Notification - Fern Lopez RN - 06/09/2014 3:33 PM CDT paged regarding K level. Plan of Care - Harriett Ochoa RN - 06/09/2014 5:43 AM CDT Problem: IP GENERAL POC-ADULT,OB,BEHAVIORAL [facility]CPM Goal: Individualization/Patient-Specific Goal (Adult,OB,Behavioral 06/04:IRRIGATION,DEBRIDEMENT,AND REPAIR LEFT INFECTED PROFUNDA FEMORIS ARTERY TO SUPERFICIAL FEMORAL VEIN LOOP PTFE GRAFT Vac in place at left thigh/fistula area Outcome: No Change VSS, tolerating his diet, bruit and thrill present at site, had dialysis yesterday, denies pain, ambulating, sba, makes small amount of urine. Plan of Care - Fern Lopez RN - 06/08/2014 5:57 PM CDT Problem: IP GENERAL POC-ADULT,OB,BEHAVIORAL [facility]CPM Goal: Individualization/Patient-Specific Goal (Adult,OB,Behavioral 06/04:IRRIGATION,DEBRIDEMENT,AND REPAIR LEFT INFECTED PROFUNDA FEMORIS ARTERY TO SUPERFICIAL FEMORAL VEIN LOOP PTFE GRAFT Vac in place at left thigh/fistula area VSS. Dialyzed today. HTNsive, BP improved. Vac to LLE intact, minimal serous output. Ambulating. Provider Notification - Fern Lopez RN - 06/08/2014 1:22 PM CDT PT remains HTNsive. Neph paged in relation to MD's earlier note to possibly increase BB. Plan of Care - Mo Warner RN - 06/08/2014 6:16 AM CDT Problem: IP GENERAL POC-ADULT,OB,BEHAVIORAL [facility]CPM Goal: Individualization/Patient-Specific Goal (Adult,OB,Behavioral 06/04:IRRIGATION,DEBRIDEMENT,AND REPAIR LEFT INFECTED PROFUNDA FEMORIS ARTERY TO SUPERFICIAL FEMORAL VEIN LOOP PTFE GRAFT Vac in place at left thigh/fistula area Outcome: No Change VSS. Denies pain. Pulses/cms intact. Vac intact. Up sba. To dialysis this am. Plan of Care - Lenora Patricio RN - 06/07/2014 9:57 PM CDT Problem: IP GENERAL POC-ADULT,OB,BEHAVIORAL F[facility]CPM Goal: Individualization/Patient-Specific Goal (Adult,OB,Behavioral 06/04:IRRIGATION,DEBRIDEMENT,AND REPAIR LEFT INFECTED PROFUNDA FEMORIS ARTERY TO SUPERFICIAL FEMORAL VEIN LOOP PTFE GRAFT Vac in place at left thigh/fistula area Outcome: Improving Pt rests comfortably. Denies pain. Wound vac at left thigh needed to be reinforced as was leaking atcenter area. Pt denies pain. Frequent requests for snacks. Good pedal pulses and good thrill and bruie at left thigh. Plan of Care - Fern Lopez RN - 06/07/2014 6:06 PM CDT Problem: IP GENERAL POC-ADULT,OB,BEHAVIORAL [facility]CPM Goal: Individualization/Patient-Specific Goal (Adult,OB,Behavioral 06/04:IRRIGATION,DEBRIDEMENT,AND REPAIR LEFT INFECTED PROFUNDA FEMORIS ARTERY TO SUPERFICIAL FEMORAL VEIN LOOP PTFE GRAFT VSS ex htn. Disorientated to time. Easily reorientated. Follows direction well. BS active, + BM.+ brui/thrill to L thigh. Wound vac inplace -125, minimal drainage. + CMS, + pulses. Ambulated x2. Op Note - Jaxon Buenrostro MD - 06/07/2014 12:38 PM CDT PROCEDURE: Placement of negative pressure dressing was left open thigh wound with exposed PTFE dialysis graft. SURGEON: Jaxon Buenrostro MD GAS METER CHECKER: RAND BENEDICT MD (surgery resident) ANESTHESIA: None. INDICATIONS: Julio Cesar Sandhu is a 49-year-old patient on chronic hemodialysis who has a left proximal thigh/groin PTFE loop graft. He has very limited access. 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 This has been debrided in the operating room. Cultures are growing Staph aureus that is not methicillin resistant. We have been changing the wound daily with Aquacel AG. We were trying to salvage this graft despite the infection due to his very limited access in both upper and lower extremities. DESCRIPTION OF PROCEDURE: At the patient's bedside, we removed the Tegaderm and Aquacel from the left lateral thigh with the arterial portion of the PTFE graft is noted. We are seeing much improved granulation tissue. The graft is barely visible at the base of the wound with only a suture being noted.This was debrided to remove the overlying fibrin. The wound measured 8 cm in length and 2 cm in width and 2 cm in maximum depth. There is no surrounding erythema or induration. A silver GranuloFoam VACsponge was cut to the appropriate size and placed in the wound with the overlying adhesive dressing and hooked to 125 mm of negative pressure suction. JAXON BUENROSTRO MD MT: [id number] Name: JULIO CESAR SANDHU MRN: [id number] Account: [id number] : 1965 Procedure Date: 06/07/2014 Document: [id number] cc: Jaxon Buenrostro MD Plan of Care - Sb Davila RN - 06/07/2014 12:00 PM CDT Problem: IP GENERAL POC-ADULT,OB,BEHAVIORAL FVCPM Goal: Individualization/Patient-Specific Goal (Adult,OB,Behavioral 06/04:IRRIGATION,DEBRIDEMENT,AND REPAIR LEFT INFECTED PROFUNDA FEMORIS ARTERY TO SUPERFICIAL FEMORAL VEIN LOOP PTFE GRAFT Outcome: No Change VSS. HTN. Denies pain. MR. Pulses palpable. Wound small dried drainage. Bruit/thrill present. SBA. Plan of Care - Evelina Gant RN - 06/07/2014 5:01 AM CDT Problem: IP GENERAL POC-ADULT,OB,BEHAVIORAL FVCPM Goal: Individualization/Patient-Specific Goal (Adult,OB,Behavioral 06/04:IRRIGATION,DEBRIDEMENT,AND REPAIR LEFT INFECTED PROFUNDA FEMORIS ARTERY TO SUPERFICIAL FEMORAL VEIN LOOP PTFE GRAFT Outcome: No Change VSS. BS active. CMS intact, pulses palpable. L thigh dressing intact with small serosang drainage. Bruit and thrill present. Will continue to monitor. Plan of Care - Rula Sosa RN - 06/06/2014 10:13 PM CDT Problem: IP GENERAL POC-ADULT,OB,BEHAVIORAL FVCPM Goal: Individualization/Patient-Specific Goal (Adult,OB,Behavioral 06/04:IRRIGATION,DEBRIDEMENT,AND REPAIR LEFT INFECTED PROFUNDA FEMORIS ARTERY TO SUPERFICIAL FEMORAL VEIN LOOP PTFE GRAFT Outcome: Improving VSS. Denies pain. Dressing with scant amount of serous drainage. Palpable pulses. Dialysis today. Plan to place wound vac tomorrow. Plan of Care - Sb Davila RN - 06/06/2014 2:05 PM CDT Problem: IP GENERAL POC-ADULT,OB,BEHAVIORAL FVCPM Goal: Individualization/Patient-Specific Goal (Adult,OB,Behavioral 06/04:IRRIGATION,DEBRIDEMENT,AND REPAIR LEFT INFECTED PROFUNDA FEMORIS ARTERY TO SUPERFICIAL FEMORAL VEIN LOOP PTFE GRAFT Outcome: No Change VSS. Denies pain. Pulses palpable. Wound cdi. Cms intact. Dialysis today. Sba. Pharmacy-Vancomycin Dosing Service - Emi Bernard RPH - 06/06/2014 1:18 PM CDT 49 year old, male, Vancomycin dose: based on pre-HD levels Indication: Postoperative Infection Day of Therapy: 3 Renal Function: ESRD on Dialysis Crcl = Estimated Creatinine Clearance: 9.5 mL/min (based on Cr of 8.94). Goal Trough Level: 15-20 mg/L Current Trough Level: Recent Labs 06/06/14 0830 VANCOMYCIN 17.9 Assessment: Trough level is Therapeutic Plan: 1250 mg x 1, check level 06/08 pre-HD Pharmacy will continue to monitor the patient's renal function and clinical status for treatment efficacy/failure. . Serum creatinine levels will be ordered daily for the first week of therapy and at least twice weekly for subsequent weeks. Emi Bernard, PharmD Plan of Care - Evelina Gant RN - 06/06/2014 5:28 AM CDT Problem: IP GENERAL POC-ADULT,OB,BEHAVIORAL FVCPM Goal: Individualization/Patient-Specific Goal (Adult,OB,Behavioral 06/04:IRRIGATION,DEBRIDEMENT,AND REPAIR LEFT INFECTED PROFUNDA FEMORIS ARTERY TO SUPERFICIAL FEMORAL VEIN LOOP PTFE GRAFT Outcome: No Change VSS. Denies pain. Up with SBA. L leg dressing intact with moderate serosang drainage. Bruit present.Pulses via doppler. Will continue to monitor. Provider Notification - Viridiana Quinonez RPH - 06/05/2014 2:22 PM CDT Prescriber Notification Note The pharmacist has communicated with this patient's provider regarding a concern or therapy recommendation. Notified Person: MARY Coates Date/Time of Notification: June 05, 2014 Interaction: phone Concern/Recommendation: clarification as to warfarin dosing Comments/Additional Details: Provider will dose, consult entered Viridiana Quinonez RPh Pharmacy-Anticoagulation Service - Viridiana Quinonez RPH - 06/05/2014 1:09 PM CDT Clinical Pharmacy- Warfarin Dosing Consult Pharmacy has been consulted to manage this patient???s warfarin therapy. 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 Current medications that may interact with warfarin and/or INR: . Recommend warfarin 2.5 mg today. Pharmacy will monitor Julio Cesar Sandhu daily and order warfarin doses to achieve specified INR goal. Please contact pharmacy as soon as possible if the warfarin needs to be held for a procedure or if the INR goals change. Utilization Review - Aldo Salgado MD - 06/05/2014 10:09 AM CDT Admission Status; Secondary Review Determination Under the [...] reasonable inpatient medical practice. RATIONALE FOR DETERMINATION 49-year-old man with a complex past medical history presented with a dehiscence of surgical incisionand an infected pseudoaneurysm requiring a revision of fistula in the lower extremity and a combinedirrigation and debridement of the lower extremity infection. He was started on IV vancomycin postop and will require multiple days of hospital level of care for further evaluation and management as well as postop care. The expected length of stay at the time of admission was more than 2 midnights because of the severity of illness, intensity of service provided, and risk for adverse outcome. Inpatient admission is recommended based on the Medicare guidelines. The information on this document is developed [...] section 70.4. Sincerely, ALDO SALGADO MD System Bond Clerk Utilization Review/ Case Management [facility]. Plan of Care - Evelina Gant RN - 06/05/2014 5:30 AM CDT Problem: IP GENERAL POC-ADULT,OB,BEHAVIORAL FVCPM Goal: Individualization/Patient-Specific Goal (Adult,OB,Behavioral The patient and/or their it sales representative will achieve their patient-specific goals related to the plan of care. The patient-specific goals include: Outcome: Improving MR. VSS. Denies pain. Up with SBA. Dsg, intact with moderate drainage. Bruit present. Pulses via doppler. Loose BMx2, fecal incont x1. Tolerating regular diet. Will continue to monitor. Pharmacy-Vancomycin Dosing Service - Emi Bernard RPH - 06/04/2014 10:10 PM CDT 49 year old, male, Vancomycin dose: 2000 mg intermittently based on levels Indication: Postoperative Infection Day of Therapy: 1 Renal Function: ESRD on Dialysis Crcl = Estimated Creatinine Clearance: 6.4 mL/min (based on Cr of 13.45). Goal Trough Level: 15-20 mg/L Pharmacy will continue to monitor the patient's renal function and clinical status for treatment efficacy/failure. Pharmacy will check trough levels as appropriate in 1-3 Days, prior to next HD. Serum creatinine levels will be ordered daily for the first week of therapy and at least twice weekly for leger bsequent weeks. Emi Bernard PharmD Plan of Care - Sb Davila RN - 06/04/2014 9:21 PM CDT Problem: IP GENERAL POC-ADULT,OB,BEHAVIORAL FVCPM Goal: Individualization/Patient-Specific Goal (Adult,OB,Behavioral The patient and/or their it sales representative will achieve their patient-specific goals related to the plan of care. The patient-specific goals include: Outcome: No Change VSS. Slight HTN. Denies pain. Refused to dangle. Dressing dried drainage. Pulses by palpation. Op Note - Jaxon Buenrostro MD - 06/04/2014 4:45 PM CDT PREOPERATIVE DIAGNOSIS: Wound breakdown, possible infection, left thigh polytetrafluoroethylene dialysis loop graft. POSTOPERATIVE DIAGNOSIS: Infected hematoma, bleeding polytetrafluoroethylene dialysis graft. PROCEDURE: 1. Full-thickness subcutaneous excisional debridement of left lateral thigh polytetrafluoroethylene dialysis access graft. 2. Repair of bleeding dialysis needle hole in graft. 3. Pulse lavage. SURGEON: Jaxon Buenrostro MD COMPUTER TECHNOLOGY TEACHER: Rand Benedict MD (surgery resident) ANESTHESIA: General. PREOPERATIVE MEDICATIONS: Ancef 2 gm IV. INDICATIONS: Julio Cesar Sandhu is a 49-year-old patient on chronic hemodialysis who has very limited access. He is presently dialyzing via left femoral to common femoral vein PTFE loop graft. Approximately4 weeks ago we repaired his pseudoaneurysm on the lateral aspect of the graft (arterial) with a bovine patch. We were contacted several days ago with a photograph from the dialysis unit showing that the wound has started to breakdown. This raised the amount the chance of infection. Apparently, the patient has also been scratching on the area and is complaining of pain. We felt the patient should be brought to the hospital from the dialysis unit for more definitive surgical treatment. DESCRIPTION OF PROCEDURE: The patient was brought to the operating room. He was induced under general anesthesia. LMA was placed. A pillow was placed under his left knee. The left groin and thigh were prepped and draped in the usual fashion. The patient had swelling which raises the possibility of an underlying pseudoaneurysm or hematoma inthe more distal portion of the incision. There was not a lot of purulent drainage or erythema, but obviously the wound had partially . Timeout was called and the sites were identified. We opened the wound with a 15-blade scalpel. Upon doing so, we could identify an organized hematoma that was pulsatile in nature in the distal portion of the previous dissection site. This was entered and we had an approximately 3 x 2 cm hematoma/pseudoaneurysm noted. There was a small needle hole defect in the PTFE graft in the anterior portion approximately 0.6 cm from our previous bovine patch that was bleeding. This was repaired with a mattress 6-0 Prolene suture, and a single simple 6-0 Prolenesuture. A good pulse was noted in the graft. We then evacuated the organized hematoma which was located medially and laterally distally to this bleeding site. We identified the Bovie vein graft which was intact with no evidence of bleeding with astrong pulse within the PTFE graft. We then excised the nonviable skin edges of the wound with a 15-blade scalpel and electrocautery. The decision at this point is whether we should try to salvage the graft. It is unclear whether the problem is related to the needle hole bleeding site and the development of another pseudoaneurysm or whether this is indeed infected. Appropriate aerobic and anaerobic cultures were taken of the site. We removed all organized wall thrombus. Loose debris from the wound was also excised. Using the pulse lavage, we used 2 L of saline onto the area with clean returns being noted. We decided we would try to salvage the graft and placed several Aquacel Ag sheets into the wound for protection and antibacterial properties of the silver. Gauze was placed over this after infiltrating the wound with 1% lidocain e for postop analgesia. Sterile Tegaderm dressing was applied. FINDINGS: Wound breakdown, left thigh, with possible infection. There was a pseudoaneurysm due to a dialysis needle hole that has been evacuated with repair of the bleeding site. We can visualize our recently placed bovine graft. This does raise the possibility of this being infected, and if so there is a risk of bleeding, and would necessitate complete removal of the graft, leaving severe dialysis access problems (upper extremities are all occluded, and he has failed a right thigh loop PTFE and bovine graft). The patient will need to be admitted. We will give him 1 gm of IV vancomycin. The dressings will be changed in the next 24-36 hours sterilely at the bedside. If things seem to be improving, we would consider placement of a wound VAC to clean up the wound and allow for delayed primary closure. JAXON BUENROSTRO MD MT: [id number] Name: JULIO CESAR SANDHU Account: [id number] : 1965 Procedure Date: 06/04/2014 Document: [id number] cc: [facility] Brief Op Note - Rand Benedict MD - 06/04/2014 4:10 PM CDT [facility] Brief Operative Note Pre-operative diagnosis: dehiscence surgical incision Post-operative diagnosis infected pseudoaneurysm Procedure: Procedure(s) with comments: REVISION FISTULA ARTERIOVENOUS LOWER EXTREMITY - DEBRIDEMENT LEFT PROFUNDA FEMORIS ARTERY TO SUPERFICIAL FEMORAL VEIN LOOP PTFE GRAFT COMBINED IRRIGATION AND DEBRIDEMENT LOWER EXTREMITY Surgeon(s): Surgeon(s) and Role: * Jaxon Buenrostro MD - Primary * Rand Benedict MD - Resident - Assisting Estimated blood loss: 10 mL Specimens: ID Type Source Tests Collected by Time Destination 1 : Left Thigh Wound Swab Leg, left TISSUE CULTURE, ANAEROBIC BACTERIAL CULTURE, GRAM STAIN Jaxon Buenrostro MD 06/04/2014 3:42 PM Clinical Lab Findings: Small hole in PTFE graft with large infected hematoma, See dictated note for details documented in this encounter Plan of Treatment Scheduled Referrals Name Type Priority Associated Diagnoses Order S [facility] nursing referral Referral Routine Fistula O rdered: 06/19/2014 documented as of this encounter Procedures Procedure Name Priority Date/Time Associated Diagnosis Comme nts GLUCOSE BY METER Routine 06/20/2014 12:22 Essential Results for this PM CDT Hypertension, Benign procedu re are in the results section. INR Routine 06/20/2014 9:30 AM Essential Results f or this CDT Hypertension, Benign procedu re are in the results section. INR Routine 06/20/2014 8:08 AM Essential Results f or this CDT Hypertension, Benign procedu re are in the results section. POTASSIUM Routine 06/20/2014 8:08 AM Essential Results f or this CDT Hypertension, Benign procedu re are in the results section. HEMOGLOBIN Routine 06/20/2014 8:08 AM Essential Results f or this CDT Hypertension, Benign procedu re are in the results section. GLUCOSE BY METER Routine 06/20/2014 7:09 AM Essential Resul ts for this CDT Hypertension, Benign procedu re are in the results section. GLUCOSE BY METER Routine 06/19/2014 8:14 PM Essential Resul ts for this CDT Hypertension, Benign procedu re are in the results section. GLUCOSE BY METER Routine 06/19/2014 5:44 PM Essential Resul ts for this CDT Hypertension, Benign procedu re are in the results section. GLUCOSE BY METER Routine 06/19/2014 11:57 Essential Results for this AM CDT Hypertension, Benign procedu re are in the results section. POTASSIUM STAT 06/19/2014 10:09 Essential Results for this AM CDT Hypertension, Benign procedu re are in the results section. HEMOGLOBIN STAT 06/19/2014 10:09 Essential Results for this AM CDT Hypertension, Benign procedu re are in the results section. GLUCOSE BY METER Routine 06/19/2014 7:50 AM Essential Resul ts for this CDT Hypertension, Benign procedu re are in the results section. INR Routine 06/19/2014 7:20 AM Essential Results f or this CDT Hypertension, Benign procedu re are in the results section. PLATELET COUNT Routine 06/19/2014 7:20 AM Essential Results for this CDT Hypertension, Benign procedu re are in the results section. GLUCOSE BY METER Routine 06/18/2014 9:36 PM Resul ts for this CDT procedure are i n the results section. GLUCOSE BY METER Routine 06/18/2014 6:05 PM Resul ts for this CDT procedure are i n the results section. GLUCOSE BY METER Routine 06/18/2014 3:07 PM Resul ts for this CDT procedure are i n the results section. US EXTREMITY Routine 06/18/2014 2:41 PM Results f or this ARTERIAL VENOUS CDT procedure ar e in DIALYSIS ACCESS the results GRAFT section. GLUCOSE BY METER Routine 06/18/2014 11:32 Results for this AM CDT procedure are i n the results section. GLUCOSE BY METER Routine 06/18/2014 8:21 AM Resul ts for this CDT procedure are i n the results section. BLOOD COMPONENT Routine 06/18/2014 5:15 AM Result s for this CDT procedure are i n the results section. INR Routine 06/18/2014 5:15 AM Results f or this CDT procedure are i n the results section. POTASSIUM Routine 06/18/2014 5:15 AM Results f or this CDT procedure are i n the results section. ABO/RH TYPE AND Routine 06/18/2014 5:15 AM Result s for this SCREEN CDT procedure are i n the results section. GLUCOSE BY METER Routine 06/17/2014 9:41 PM Resul ts for this CDT procedure are i n the results section. BASIC METABOLIC STAT 06/17/2014 6:55 PM Result s for this PANEL CDT procedure are i n the results section. POTASSIUM Timed 06/17/2014 6:00 PM Results f or this CDT procedure are i n the results section. MAGNESIUM Routine 06/17/2014 6:00 PM Results f or this CDT procedure are i n the results section. GLUCOSE BY METER Routine 06/17/2014 4:46 PM Resul ts for this CDT procedure are i n the results section. GLUCOSE BY METER Routine 06/17/2014 11:54 Results for this AM CDT procedure are i n the results section. XR VIDEO SWALLOW W Routine 06/17/2014 11:03 Resul ts for this ESOPHAGRAM AM CDT procedure are i n the results section. INR Routine 06/17/2014 7:31 AM Results f or this CDT procedure are i n the results section. PHOSPHORUS Routine 06/17/2014 7:31 AM Results f or this CDT procedure are i n the results section. HEMOGLOBIN Routine 06/17/2014 7:31 AM Results f or this CDT procedure are i n the results section. BASIC METABOLIC Routine 06/17/2014 7:31 AM Result s for this PANEL CDT procedure are i n the results section. GLUCOSE BY METER Routine 06/17/2014 7:17 AM Resul ts for this CDT procedure are i n the results section. GLUCOSE BY METER Routine 06/17/2014 1:44 AM Resul ts for this CDT procedure are i n the results section. GLUCOSE BY METER Routine 06/16/2014 9:50 PM Resul ts for this CDT procedure are i n the results section. GLUCOSE BY METER Routine 06/16/2014 4:40 PM Resul ts for this CDT procedure are i n the results section. GLUCOSE BY METER Routine 06/16/2014 11:05 Results for this AM CDT procedure are i n the results section. GLUCOSE BY METER Routine 06/16/2014 7:30 AM Resul ts for this CDT procedure are i n the results section. INR Routine 06/16/2014 7:30 AM Results f or this CDT procedure are i n the results section. PLATELET COUNT Routine 06/16/2014 7:30 AM Results for this CDT procedure are i n the results section. GLUCOSE BY METER Routine 06/15/2014 10:02 Results for this PM CDT procedure are i n the results section. GLUCOSE BY METER Routine 06/15/2014 5:29 PM Resul ts for this CDT procedure are i n the results section. GLUCOSE BY METER Routine 06/15/2014 12:55 Results for this PM CDT procedure are i n the results section. GLUCOSE BY METER Routine 06/15/2014 7:57 AM Resul ts for this CDT procedure are i n the results section. RENAL PANEL Routine 06/15/2014 7:34 AM Results f or this CDT procedure are i n the results section. INR Routine 06/15/2014 7:34 AM Results f or this CDT procedure are i n the results section. HEMOGLOBIN Routine 06/15/2014 7:34 AM Results f or this CDT procedure are i n the results section. GLUCOSE BY METER Routine 06/15/2014 2:40 AM Resul ts for this CDT procedure are i n the results section. GLUCOSE BY METER Routine 06/14/2014 9:46 PM Resul ts for this CDT procedure are i n the results section. OCCULT BLOOD STOOL Routine 06/14/2014 7:10 PM Res ults for this CDT procedure are i n the results section. GLUCOSE BY METER Routine 06/14/2014 4:36 PM Resul ts for this CDT procedure are i n the results section. GLUCOSE BY METER Routine 06/14/2014 12:44 Results for this PM CDT procedure are i n the results section. INR Routine 06/14/2014 7:25 AM Results f or this CDT procedure are i n the results section. POTASSIUM Routine 06/14/2014 7:25 AM Results f or this CDT procedure are i n the results section. HEMOGLOBIN Routine 06/14/2014 7:25 AM Results f or this CDT procedure are i n the results section. GLUCOSE BY METER Routine 06/14/2014 7:10 AM Resul ts for this CDT procedure are i n the results section. GLUCOSE BY METER Routine 06/14/2014 2:14 AM Resul ts for this CDT procedure are i n the results section. GLUCOSE BY METER Routine 06/13/2014 9:21 PM Resul ts for this CDT procedure are i n the results section. GLUCOSE BY METER Routine 06/13/2014 4:57 PM Resul ts for this CDT procedure are i n the results section. GLUCOSE BY METER Routine 06/13/2014 1:55 PM Resul ts for this CDT procedure are i n the results section. GLUCOSE BY METER Routine 06/13/2014 7:28 AM Resul ts for this CDT procedure are i n the results section. INR Routine 06/13/2014 6:55 AM Results f or this CDT procedure are i n the results section. POTASSIUM Routine 06/13/2014 6:55 AM Results f or this CDT procedure are i n the results section. PLATELET COUNT Routine 06/13/2014 6:55 AM Results for this CDT procedure are i n the results section. HEMOGLOBIN Routine 06/13/2014 6:55 AM Results f or this CDT procedure are i n the results section. GLUCOSE BY METER Routine 06/12/2014 9:19 PM Resul ts for this CDT procedure are i n the results section. GLUCOSE BY METER Routine 06/12/2014 4:56 PM Resul ts for this CDT procedure are i n the results section. GLUCOSE BY METER Routine 06/12/2014 11:40 Results for this AM CDT procedure are i n the results section. INR Routine 06/12/2014 7:07 AM Results f or this CDT procedure are i n the results section. GLUCOSE BY METER Routine 06/11/2014 9:30 PM Resul ts for this CDT procedure are i n the results section. GLUCOSE BY METER Routine 06/11/2014 4:45 PM Resul ts for this CDT procedure are i n the results section. POTASSIUM Routine 06/11/2014 1:00 PM Results f or this CDT procedure are i n the results section. IRON AND IRON Routine 06/11/2014 1:00 PM Results for this BINDING CAPACITY CDT procedure a re in the results section. HEMOGLOBIN Routine 06/11/2014 1:00 PM Results f or this CDT procedure are i n the results section. FERRITIN Routine 06/11/2014 1:00 PM Results f or this CDT procedure are i n the results section. GLUCOSE BY METER Routine 06/11/2014 12:04 Results for this PM CDT procedure are i n the results section. GLUCOSE BY METER Routine 06/11/2014 7:05 AM Resul ts for this CDT procedure are i n the results section. INR Routine 06/11/2014 6:40 AM Results f or this CDT procedure are i n the results section. GLUCOSE BY METER Routine 06/10/2014 9:52 PM Resul ts for this CDT procedure are i n the results section. GLUCOSE BY METER Routine 06/10/2014 4:31 PM Resul ts for this CDT procedure are i n the results section. GLUCOSE BY METER Routine 06/10/2014 11:55 Results for this AM CDT procedure are i n the results section. GLUCOSE BY METER Routine 06/10/2014 7:26 AM Resul ts for this CDT procedure are i n the results section. RENAL PANEL Routine 06/10/2014 7:13 AM Results f or this CDT procedure are i n the results section. INR Routine 06/10/2014 7:13 AM Results f or this CDT procedure are i n the results section. CBC WITH PLATELETS Routine 06/10/2014 7:13 AM Res ults for this CDT procedure are i n the results section. GLUCOSE BY METER Routine 06/10/2014 1:58 AM Resul ts for this CDT procedure are i n the results section. POTASSIUM Timed 06/10/2014 12:40 Results for this AM CDT procedure are i n the results section. GLUCOSE BY METER Routine 06/09/2014 9:17 PM Resul ts for this CDT procedure are i n the results section. POTASSIUM Timed 06/09/2014 8:45 PM Results f or this CDT procedure are i n the results section. GLUCOSE BY METER Routine 06/09/2014 5:13 PM Resul ts for this CDT procedure are i n the results section. POTASSIUM Timed 06/09/2014 3:04 PM Results f or this CDT procedure are i n the results section. GLUCOSE BY METER Routine 06/09/2014 12:30 Results for this PM CDT procedure are i n the results section. POTASSIUM Timed 06/09/2014 10:57 Results for this AM CDT procedure are i n the results section. GLUCOSE BY METER Routine 06/09/2014 8:10 AM Resul ts for this CDT procedure are i n the results section. INR Routine 06/09/2014 7:40 AM Results f or this CDT procedure are i n the results section. BASIC METABOLIC Routine 06/09/2014 7:40 AM Result s for this PANEL CDT procedure are i n the results section. CBC WITH PLATELETS Routine 06/09/2014 7:40 AM Res ults for this CDT procedure are i n the results section. GLUCOSE BY METER Routine 06/08/2014 8:51 PM Resul ts for this CDT procedure are i n the results section. GLUCOSE BY METER Routine 06/08/2014 4:39 PM Resul ts for this CDT procedure are i n the results section. GLUCOSE BY METER Routine 06/08/2014 1:26 PM Resul ts for this CDT procedure are i n the results section. GLUCOSE BY METER Routine 06/08/2014 6:58 AM Resul ts for this CDT procedure are i n the results section. VANCOMYCIN LEVEL Routine 06/08/2014 6:43 AM Resul ts for this CDT procedure are i n the results section. INR Routine 06/08/2014 6:43 AM Results f or this CDT procedure are i n the results section. POTASSIUM Routine 06/08/2014 6:43 AM Results f or this CDT procedure are i n the results section. CBC WITH PLATELETS Routine 06/08/2014 6:43 AM Res ults for this CDT procedure are i n the results section. GLUCOSE BY METER Routine 06/07/2014 9:49 PM Resul ts for this CDT procedure are i n the results section. GLUCOSE BY METER Routine 06/07/2014 4:56 PM Resul ts for this CDT procedure are i n the results section. GLUCOSE BY METER Routine 06/07/2014 11:53 Results for this AM CDT procedure are i n the results section. GLUCOSE BY METER Routine 06/07/2014 8:08 AM Resul ts for this CDT procedure are i n the results section. INR Routine 06/07/2014 7:41 AM Results f or this CDT procedure are i n the results section. POTASSIUM Routine 06/07/2014 7:41 AM Results f or this CDT procedure are i n the results section. CBC WITH PLATELETS Routine 06/07/2014 7:41 AM Res ults for this CDT procedure are i n the results section. GLUCOSE BY METER Routine 06/07/2014 7:21 AM Resul ts for this CDT procedure are i n the results section. GLUCOSE BY METER Routine 06/07/2014 2:21 AM Resul ts for this CDT procedure are i n the results section. GLUCOSE BY METER Routine 06/06/2014 10:26 Results for this PM CDT procedure are i n the results section. GLUCOSE BY METER Routine 06/06/2014 7:59 PM Resul ts for this CDT procedure are i n the results section. GLUCOSE BY METER Routine 06/06/2014 3:50 PM Resul ts for this CDT procedure are i n the results section. GLUCOSE BY METER Routine 06/06/2014 1:26 PM Resul ts for this CDT procedure are i n the results section. VANCOMYCIN LEVEL Routine 06/06/2014 8:30 AM Resul ts for this CDT procedure are i n the results section. INR Routine 06/06/2014 8:30 AM Results f or this CDT procedure are i n the results section. HEMOGLOBIN A1C Routine 06/06/2014 8:30 AM Results for this CDT procedure are i n the results section. BASIC METABOLIC Timed 06/06/2014 8:30 AM Result s for this PANEL CDT procedure are i n the results section. DIALYSIS INPATIENT Routine 06/06/2014 7:48 AM CDT GLUCOSE BY METER Routine 06/06/2014 6:56 AM Resul ts for this CDT procedure are i n the results section. GLUCOSE BY METER Routine 06/06/2014 3:06 AM Resul ts for this CDT procedure are i n the results section. GLUCOSE BY METER Routine 06/05/2014 11:24 Results for this PM CDT procedure are i n the results section. GLUCOSE BY METER Routine 06/05/2014 10:00 Results for this PM CDT procedure are i n the results section. GLUCOSE BY METER Routine 06/05/2014 5:09 PM Resul ts for this CDT procedure are i n the results section. GLUCOSE BY METER Routine 06/05/2014 11:51 Results for this AM CDT procedure are i n the results section. GLUCOSE BY METER Routine 06/05/2014 7:43 AM Resul ts for this CDT procedure are i n the results section. INR Routine 06/05/2014 7:39 AM Results f or this CDT procedure are i n the results section. POTASSIUM Routine 06/05/2014 7:39 AM Results f or this CDT procedure are i n the results section. PLATELET COUNT Routine 06/05/2014 7:39 AM Results for this CDT procedure are i n the results section. GLUCOSE Routine 06/05/2014 7:39 AM Results f or this CDT procedure are i n the results section. PLATELET COUNT Routine 06/04/2014 8:12 PM Results for this CDT procedure are i n the results section. GLUCOSE BY METER Routine 06/04/2014 4:51 PM Resul ts for this CDT procedure are i n the results section. WOUND CULTURE Routine 06/04/2014 3:35 PM Results for this AEROBIC BACTERIAL CDT procedure are in the results section. GRAM STAIN Routine 06/04/2014 3:35 PM Results f or this CDT procedure are i n the results section. ANAEROBIC BACTERIAL Routine 06/04/2014 3:35 PM Re sults for this CULTURE ROUTINE CDT procedure ar e in the results section. GLUCOSE BY METER Routine 06/04/2014 3:21 PM Resul ts for this CDT procedure are i n the results section. IRRIGATION AND 06/04/2014 2:44 PM infected DEBRIDEMENT, LOWER CDT pseudoaneurysm EXTREMITY Special Needs PATIENT UNABLE TO SPEAK ...A UNT OFTEN WITH PATIENT (does not use sign language) COGNITIVE ISSUES REVISION, ARTERIOVENOUS FISTULA, 06/04/2014 2:44 PM CDT infected pseudoaneurysm LOWER EXTREMITY Special Needs PATIENT UNABLE TO SPEAK ...A UNT OFTEN WITH PATIENT (does not use sign language) COGNITIVE ISSUES GLUCOSE BY METER Routine 06/04/2014 1:49 PM CDT R esults for this procedure are in the results sec tion. INR STAT 06/04/2014 1:15 PM CDT Resul ts for this procedure are in the results sec tion. POTASSIUM Routine 06/04/2014 1:15 PM CDT Resul ts for this procedure are in the results sec tion. documented in this encounter Results Glucose by meter (06/20/2014 12:22 PM CDT) athologist Signature Glucose 90 60 - 99 POINT OF CARE mg/dL TEST, GLUCOSE Specimen Anatomical Collection Method Collection Time Receive d Time (Source) Location / / Volume Laterality 06/20/2014 12:22 06/20/2014 PM CDT 12:35 PM CDT Jaxon Buenrostro MD LAB - BEAKER POCT Performing Organization Address City/State/ZIP Code Phon e Number FV POINT OF CARE TEST, GLUCOSE POINT OF CARE TEST, GLUCOSE (ABNORMAL) INR (06/20/2014 9:30 AM CDT) athologist Signature INR 1.97 (H) 0.86 - 1.14 [facility] LAB Specimen Anatomical Collection Method Collection Time Receive d Time (Source) Location / / Volume Laterality 06/20/2014 9:30 AM 4 9:38 CDT AM CDT Jaxon Buenrostro MD LAB - BLOOD ORDERABLES Performing Organization Address City/[facility]/ZIP Code Phon e Number M [facility] [address] [phone] [facility] INR (06/20/2014 8:08 AM CDT) athologist Signature INR Test canceled by PCU/Clinic 0.86 - [facility] Charge credited 1.14 ADRIANO spoke with Ariadne in dialysis and he had aalready received heparin [facility] LAB Specimen Anatomical Collection Method Collection Time Receive d Time (Source) Location / / Volume Laterality Blood specimen 06/20/2014 8:08 AM 014 8:26 (specimen) CDT AM CDT Rand Benedict MD LAB - BLOOD ORDERABLES Performing Organization Address City/State/ZIP Code Phon e Number M [facility] [address] [phone] [facility] Potassium (06/20/2014 8:08 AM CDT) athologist Signature Potassium 4.9 3.4 - 5.3 [place] mmol/L [facility] Specimen Anatomical Collection Method Collection Time Receive d Time (Source) Location / / Volume Laterality Blood specimen 06/20/2014 8:08 AM 014 8:26 (specimen) CDT AM CDT Job Jorge MD LAB - BLOOD ORDERABLES Performing Organization Address City/State/ZIP Code Phon e Number [facility] [address] [place] [address] [phone] [facility] LAB (ABNORMAL) Hemoglobin (06/20/2014 8:08 AM CDT) athologist Signature Hemoglobin 7.7 (L) 13.3 - 17.7 [place] g/dL [facility] LAB Specimen Anatomical Collection Method Collection Time Receive d Time (Source) Location / / Volume Laterality Blood specimen 06/20/2014 8:08 AM 014 8:26 (specimen) CDT AM CDT Job Jorge MD LAB - BLOOD ORDERABLES Performing Organization Address City/[facility]/ZIP Code Phon e Number [facility] [address] [place] [address] [facility] Glucose by meter (06/20/2014 7:09 AM CDT) athologist Signature Glucose 86 60 - 99 POINT OF CARE mg/dL TEST, GLUCOSE Specimen Anatomical Collection Method Collection Time Receive d Time (Source) Location / / Volume Laterality 06/20/2014 7:09 AM 4 CDT 11:56 AM CDT Jaxon Buenrostro MD LAB - BEAKER POCT Performing Organization Address City/State/ZIP Code Phon e Number FV POINT OF CARE TEST, GLUCOSE POINT OF CARE TEST, GLUCOSE (ABNORMAL) Glucose by meter (06/19/2014 8:14 PM CDT) athologist Signature Glucose 153 (H) 60 - 99 POINT OF CARE mg/dL TEST, GLUCOSE Specimen Anatomical Collection Method Collection Time Receive d Time (Source) Location / / Volume Laterality 06/19/2014 8:14 PM 4 8:16 CDT PM CDT Jaxon DEAN - BEXIANG POCT Performing Organization Address City/State/ZIP Code Phon e Number FV POINT OF CARE TEST, GLUCOSE POINT OF CARE TEST, GLUCOSE Glucose by meter (06/19/2014 5:44 PM CDT) P athologist Signature Glucose 78 60 - 99 POINT OF CARE mg/dL TEST, GLUCOSE Specimen Anatomical Collection Method Collection Time Receive d Time (Source) Location / / Volume Laterality 06/19/2014 5:44 PM 4 5:50 CDT PM CDT Jaxon DEAN - BEXIANG POCT Performing Organization Address City/[facility]/ZIP Code Phon e Number FV POINT OF CARE TEST, GLUCOSE POINT OF CARE TEST, GLUCOSE Glucose by meter (06/19/2014 11:57 AM CDT) P athologist Signature Glucose 82 60 - 99 POINT OF CARE mg/dL TEST, GLUCOSE Specimen Anatomical Collection Method Collection Time Receive d Time (Source) Location / / Volume Laterality 06/19/2014 11:57 06/19/2014 AM CDT 12:01 PM CDT Jaxon DEAN - BEXIANG POCT Performing Organization Address City/[facility]/ZIP Code Phon e Number FV POINT OF CARE TEST, GLUCOSE POINT OF CARE TEST, GLUCOSE Potassium (06/19/2014 10:09 AM CDT) P athologist Signature Potassium 4.4 3.4 - 5.3 [place] mmol/L [facility] Specimen Anatomical Collection Method Collection Time Receive d Time (Source) Location / / Volume Laterality Blood specimen 06/19/2014 10:09 4 (specimen) AM CDT 10:16 AM CDT Job Jorge MD LAB - BLOOD ORDERABLES Performing Organization Address City/[facility]/ZIP [facility] [place] M [facility] [address] [place], [place] [address] [facility] LAB (ABNORMAL) Hemoglobin (06/19/2014 10:09 AM CDT) athologist Signature Hemoglobin 7.7 (L) 13.3 - 17.7 [place] g/dL [facility] Specimen Anatomical Collection Method Collection Time Receive d Time (Source) Location / / Volume Laterality Blood specimen 06/19/2014 10:09 4 (specimen) AM CDT 10:16 AM CDT Job Jorge MD LAB - BLOOD ORDERABLES Performing Organization Address City/State/ZIP Code Phon e Number M [facility] [address] [address] [facility] Glucose by meter (06/19/2014 7:50 AM CDT) athologist Signature Glucose 93 60 - 99 POINT OF CARE mg/dL TEST, GLUCOSE Specimen Anatomical Collection Method Collection Time Receive d Time (Source) Location / / Volume Laterality 06/19/2014 7:50 AM 4 7:56 CDT AM CDT Jaxon Buenrostro MD LAB - BEAKER POCT Performing Organization Address City/State/ZIP Code Phon e Number FV POINT OF CARE TEST, GLUCOSE POINT OF CARE TEST, GLUCOSE (ABNORMAL) INR (06/19/2014 7:20 AM CDT) athologist Signature INR 2.40 (H) 0.86 - 1.14 [facility] LAB Specimen Anatomical Collection Method Collection Time Receive d Time (Source) Location / / Volume Laterality Blood specimen 06/19/2014 7:20 AM 014 7:29 (specimen) CDT AM CDT Rand Benedict MD LAB - BLOOD ORDERABLES Performing Organization Address City/State/ZIP Code Phon e Number [facility] [address] [phone] [facility] Platelet count (06/19/2014 7:20 AM CDT) athologist Signature Platelet Count 173 150 - 450 [place] 10e9/L [facility] Specimen Anatomical Collection Method Collection Time Receive d Time (Source) Location / / Volume Laterality Blood specimen 06/19/2014 7:20 AM 014 7:29 (specimen) CDT AM CDT Rand Benedict MD LAB - BLOOD ORDERABLES Performing Organization Address City/State/ZIP Code Phon e Number M [facility] [address] [place] [address] [phone] [facility] (ABNORMAL) Glucose by meter (06/18/2014 9:36 PM CDT) P athologist Signature Glucose 156 (H) 60 - 99 POINT OF CARE mg/dL TEST, GLUCOSE Specimen Anatomical Collection Method Collection Time Receive d Time (Source) Location / / Volume Laterality 06/18/2014 9:36 PM 4 9:41 CDT PM CDT Jaxon Buenrostro MD LAB - BEAKER POCT Performing Organization Address City/[facility]/ZIP Code Phon e Number FV POINT OF CARE TEST, GLUCOSE POINT OF CARE TEST, GLUCOSE (ABNORMAL) Glucose by meter (06/18/2014 6:05 PM CDT) P athologist Signature Glucose 135 (H) 60 - 99 POINT OF CARE mg/dL TEST, GLUCOSE Specimen Anatomical Collection Method Collection Time Receive d Time (Source) Location / / Volume Laterality 06/18/2014 6:05 PM 4 6:11 CDT PM CDT Jaxon Buenrostro MD LAB - BEAKER POCT Performing Organization Address City/State/ZIP Code Phon e Number FV POINT OF CARE TEST, GLUCOSE POINT OF CARE TEST, GLUCOSE (ABNORMAL) Glucose by meter (06/18/2014 3:07 PM CDT) P athologist Signature Glucose 115 (H) 60 - 99 POINT OF CARE mg/dL TEST, GLUCOSE Specimen Anatomical Collection Method Collection Time Receive d Time (Source) Location / / Volume Laterality 06/18/2014 3:07 PM 4 3:10 CDT PM CDT Jaxon Buenrostro MD LAB - BEXIANG POCT Performing Organization Address City/State/ZIP Code Phon e Number FV POINT OF CARE TEST, GLUCOSE POINT OF CARE TEST, GLUCOSE US Ext Arterial Venous Dialys Acs Graft (06/18/2014 2:41 PM CDT) Anatomical Region Laterality Modality Vascular, Abdomen/Pelvis Ultrasound Specimen (Source) Anatomical Location Collection Method / Collectio n Time Received Time / Laterality Volume Impressions 06/18/2014 4:22 PM CDT IMPRESSION: Widely patent right profunda femoris to superficial femoral vein graft with high velocities but without evidence of graft stenosis. Interval repair of the previou s arterial graft limb pseudoaneurysm. There is limited visuali zation ??of the apex of the graft as described above. Bandages in th is region. DARRIAN MOYA MD Narrative 06/18/2014 4:22 PM CDT ULTRASOUND EXTREMITY ARTERIAL VENOUS DIALYSIS ACCESS GRAFT ??06/18/2014 2:41 PM HISTORY: ??Followup profunda femoris art philip to superficial femoral vein loop dialysis graft status post excision of PTFE pseudoaneurysm with bovine patch angioplasty 05/08/2014. FINDINGS: The graft remains patent. The venous and arterial limbs of the graft appear widely patent without e vidence of stenosis. As before, velocities remain relatively hig h throughout the graft, particularly at the arterial and venous anastomoses where velocities are 871/509 cm/s and 583/406 cm/s respec tively. However no visible stenosis is identified at either anastom osis or either limb of the graft. The graft apex is poorly visualiz ed due to the presence of a wound vac and dressing bandages. The previous graft pseudoaneurysm along the arterial limb of the graft has been surgically repaired. This regio n appears widely patent. The previous thrombosed pseudoaneurysm on th e venous limb of the graft is no longer visualized. Procedure Note Darrian Moya MD - 06/18/2014Formatti ng of this note might be different from the original. ULTRASOUND EXTREMITY ARTERIAL VENOUS NGA LYSIS ACCESS GRAFT 06/18/2014 2:41 PM HISTORY: Followup profunda femoris arter y to superficial femoral vein loop dialysis graft status post excision of PTFE pseudoaneurysm with bovine patch angioplasty 05/08/2014. FINDINGS: The graft remains patent. The venous and arterial limbs of the graft appear widely patent without e vidence of stenosis. As before, velocities remain relatively hig h throughout the graft, particularly at the arterial and venous anastomoses where velocities are 871/509 cm/s and 583/406 cm/s respec tively. However no visible stenosis is identified at either anastom osis or either limb of the graft. The graft apex is poorly visualiz ed due to the presence of a wound vac and dressing bandages. The previous graft pseudoaneurysm along the arterial limb of the graft has been surgically repaired. This regio n appears widely patent. The previous thrombosed pseudoaneurysm on th e venous limb of the graft is no longer visualized. IMPRESSION IMPRESSION: Widely patent right profunda femoris to superficial femoral vein graft with high velocities but without evidence of graft stenosis. Interval repair of the previou s arterial graft limb pseudoaneurysm. There is limited visuali zation of the apex of the graft as described above. Bandages in th is region. DARRIAN MOYA MD Jaxon Buenrostro MD IMG US ORDERABLES Glucose by meter (06/18/2014 11:32 AM CDT) athologist Signature Glucose 78 60 - 99 POINT OF CARE mg/dL TEST, GLUCOSE Specimen Anatomical Collection Method Collection Time Receive d Time (Source) Location / / Volume Laterality 06/18/2014 11:32 06/18/2014 AM CDT 11:41 AM CDT Jaxon DEAN - DAVID POCT Performing Organization Address City/[facility]/ZIP Code Phon e Number FV POINT OF CARE TEST, GLUCOSE POINT OF CARE TEST, GLUCOSE Glucose by meter (06/18/2014 8:21 AM CDT) athologist Signature Glucose 80 60 - 99 POINT OF CARE mg/dL TEST, GLUCOSE Specimen Anatomical Collection Method Collection Time Receive d Time (Source) Location / / Volume Laterality 06/18/2014 8:21 AM 4 8:26 CDT AM CDT Jaxon HERNANDEZ POCT Performing Organization Address City/State/ZIP Code Phon e Number FV POINT OF CARE TEST, GLUCOSE POINT OF CARE TEST, GLUCOSE Blood component (06/18/2014 5:15 AM CDT) [facility] gist Method Time Signature Unit Number [id number] [facility] Blood Red Blood [place] Component Cells [place] Type Leukocyte [facility] LAB Reduced Division 00 [facility] LAB Status of Released to [facility] care [facility] LAB Specimen Anatomical Collection Method Collection Time Receive d Time (Source) Location / / Volume Laterality 06/18/2014 5:15 AM 4 5:30 CDT AM CDT Job Jorge MD LABORATORY Performing Organization Address City/State/ZIP Code Phon e Number M [facility] [address] [phone] [address] [facility] LAB (ABNORMAL) Potassium (06/18/2014 5:15 AM CDT) P athologist Signature Potassium 5.5 (H) 3.4 - 5.3 [place] mmol/L [facility] LAB Specimen Anatomical Collection Method Collection Time Receive d Time (Source) Location / / Volume Laterality Blood specimen 06/18/2014 5:15 AM 014 5:30 (specimen) CDT AM CDT Jaxon Buenrostro MD LAB - BLOOD ORDERABLES Performing Organization Address City/State/ZIP Code Phon e Number M [facility] [address] [place] [address] LAB (ABNORMAL) INR (06/18/2014 5:15 AM CDT) P athologist Signature INR 2.17 (H) 0.86 - 1.14 [facility] LAB Specimen Anatomical Collection Method Collection Time Receive d Time (Source) Location / / Volume Laterality Blood specimen 06/18/2014 5:15 AM 014 5:30 (specimen) CDT AM CDT Rand Benedict MD LAB - BLOOD ORDERABLES Performing Organization Address City/State/ZIP Code Phon e Number M [facility] [address] [place] [address] [place] [address] LAB ABO/Rh type and screen (06/18/2014 5:15 AM CDT) Patholo gist Method Time Signature Units Ordered 1 [facility] ABO O [facility] RH(D) Pos [facility] Antibody Neg [place] Screen [facility] Test Valid [facility] Only At [facility] LAB Specimen 06/21/2014 [place] Expires [facility] Crossmatch Red Blood [place] Cells [facility] LAB Specimen Anatomical Collection Method Collection Time Receive d Time (Source) Location / / Volume Laterality Blood specimen 06/18/2014 5:15 AM 014 5:30 (specimen) CDT AM CDT Job Jorge MD LAB - BLOOD BANK TEST ORDER Performing Organization Address City/[facility]/ZIP Code Phon e Number M [facility] [address] [place] [address] [facility] LAB (ABNORMAL) Glucose by meter (06/17/2014 9:41 PM CDT) P athologist Signature Glucose 103 (H) 60 - 99 POINT OF CARE mg/dL TEST, GLUCOSE Specimen Anatomical Collection Method Collection Time Receive d Time (Source) Location / / Volume Laterality 06/17/2014 9:41 PM 4 9:46 CDT PM CDT Jaxon Buenrostro MD LAB - BEAKER POCT Performing Organization Address City/[facility]/ZIP Code Phon e Number FV POINT OF CARE TEST, GLUCOSE POINT OF CARE TEST, GLUCOSE (ABNORMAL) Basic metabolic panel (06/17/2014 6:55 PM CDT) P athologist Signature Sodium 132 (L) 133 - 144 [place] mmol/L [facility] Potassium 6.3 (HH) 3.4 - 5.3 [place] mmol/L [facility] Comment: Critical Value called to and read back b y [place] on [address] at 1742.SL Chloride 97 94 - 109 mmol/L [facility] Carbon Dioxide 27 20 - 32 mmol/L [facility] Anion Gap 8 6 - 17 mmol/L [facility] Glucose 129 (H) 70 - 99 mg/dL [facility] LAB Comment: Effective 05/08/2014, the reference range for this assay has changed to reflect new instrumentation/methodology. Urea Nitrogen 62 (H) 7 - 30 mg/dL [facility] LAB Comment: Effective 05/08/2014, the reference range for this assay has changed to reflect new instrumentation/methodology. Creatinine 8.78 (H) 0.66 - 1.25 mg/dL [place] SO [facility] GFR Estimate 6 (L) >60 mL/min/1.7m2 [facility] Comment: Non GFR Calc GFR Estimate If Black 8 (L) >60 mL/min/1.7m2 [facility] LAB Comment: GFR Calc Calcium 8.6 8.5 - 10.1 mg/dL [facility] LAB Comment: Effective 05/08/2014, the reference range for this assay has changed to reflect new instrumentation/methodology. Specimen Anatomical Collection Method Collection Time Receive d Time (Source) Location / / Volume Laterality Blood specimen 06/17/2014 6:55 PM 014 7:16 (specimen) CDT PM CDT Wojciech Holman MD LAB - BLOOD ORDERABLES Performing Organization Address City/State/ZIP Code Phon e Number M [facility] [address] [address] [facility] Magnesium (06/17/2014 6:00 PM CDT) athologist Signature Magnesium 2.1 1.6 - 2.3 [place] mg/dL [facility] Specimen Anatomical Collection Method Collection Time Receive d Time (Source) Location / / Volume Laterality 06/17/2014 6:00 PM 4 6:08 CDT PM CDT Job Jorge MD LAB - BLOOD ORDERABLES Performing Organization Address City/State/ZIP Code Phon e Number M [facility] [address] [address] [facility] LAB (ABNORMAL) Potassium (06/17/2014 6:00 PM CDT) athologist Signature Potassium 6.2 (HH) 3.4 - 5.3 [place] mmol/L [facility] LAB Comment: Critical Value called to and read back shireen Tyler on [address] at 1825.SL Specimen Anatomical Collection Method Collection Time Receive d Time (Source) Location / / Volume Laterality Blood specimen 06/17/2014 6:00 PM 014 6:08 (specimen) CDT PM CDT Job Jorge MD LAB - BLOOD ORDERABLES Performing Organization Address City/State/ZIP Code Phon e Number M [facility] [address] [place] [address] [facility] Glucose by meter (06/17/2014 4:46 PM CDT) P athologist Signature Glucose 80 60 - 99 POINT OF CARE mg/dL TEST, GLUCOSE Specimen Anatomical Collection Method Collection Time Receive d Time (Source) Location / / Volume Laterality 06/17/2014 4:46 PM 4 4:51 CDT PM CDT Jaxon DEAN - BEAKER POCT Performing Organization Address City/[facility]/ZIP Code Phon e Number FV POINT OF CARE TEST, GLUCOSE POINT OF CARE TEST, GLUCOSE Glucose by meter (06/17/2014 11:54 AM CDT) P athologist Signature Glucose 92 60 - 99 POINT OF CARE mg/dL TEST, GLUCOSE Specimen Anatomical Collection Method Collection Time Receive d Time (Source) Location / / Volume Laterality 06/17/2014 11:54 06/17/2014 AM CDT 11:56 AM CDT Jaxon DEAN - BEAKER POCT Performing Organization Address City/[facility]/ZIP Code Phon e Number FV POINT OF CARE TEST, GLUCOSE POINT OF CARE TEST, GLUCOSE XR Video Speech Eval w or w/o Esophagram (06/17/2014 11:03 AM CDT) Anatomical Region Laterality Modality Abdomen/Pelvis Computed Radiography Specimen (Source) Anatomical Location Collection Method / Collectio n Time Received Time / Laterality Volume Narrative 06/17/2014 11:36 AM CDT VIDEO SWALLOWING EVALUATION 06/17/2014 11:03 AM HISTORY: Dysphagia. COMPARISON: None. FLUOROSCOPY TIME: 1.4 minutes. FINDINGS: ?? Thin: Premature spillage to the piriform s. Mild penetration. Otherwise normal. Spry: Premature spillage to the pirifo billy. Mild penetration. Otherwise normal. Honey: Premature spillage to the pirifor ms. Otherwise normal. Pudding: Normal. Semisolid: Normal. Solid: Not administered. This study only includes the cervical es ophagus. EVERARDO RAYMUNDO MD Procedure Note Everardo Raymundo MD - 06/17/2014Forma tting of this note might be different from the original. VIDEO SWALLOWING EVALUATION 06/17/2014 11: 03 AM HISTORY: Dysphagia. COMPARISON: None. FLUOROSCOPY TIME: 1.4 minutes. FINDINGS: Thin: Premature spillage to the piriform s. Mild penetration. Otherwise normal. Spry: Premature spillage to the pirifo billy. Mild penetration. Otherwise normal. Honey: Premature spillage to the pirifor ms. Otherwise normal. Pudding: Normal. Semisolid: Normal. Solid: Not administered. This study only includes the cervical es ophagus. EVERARDO RAYMUNDO MD Alejandro Emerson MD IMG DIAGNOSTIC IMAGING ORDER NADIA (ABNORMAL) INR (06/17/2014 7:31 AM CDT) athologist Signature INR 1.93 (H) 0.86 - 1.14 [facility] Specimen Anatomical Collection Method Collection Time Receive d Time (Source) Location / / Volume Laterality Blood specimen 06/17/2014 7:31 AM 014 7:35 (specimen) CDT AM CDT Rand Benedict MD LAB - BLOOD ORDERABLES Performing Organization Address City/[facility]/ZIP [facility] [place] M [facility] [address] [place] [address] [facility] Phosphorus (06/17/2014 7:31 AM CDT) athologist Signature Phosphorus 2.6 2.5 - 4.5 [place] mg/dL [facility] Specimen Anatomical Collection Method Collection Time Receive d Time (Source) Location / / Volume Laterality Blood specimen 06/17/2014 7:31 AM 014 7:35 (specimen) CDT AM CDT Alejandro Emerson MD LAB - BLOOD ORDERABLES Performing Organization Address City/State/ZIP Code Phon evette Bishop [facility] [address] [address] [phone] [facility] LAB (ABNORMAL) Hemoglobin (06/17/2014 7:31 AM CDT) athologist Signature Hemoglobin 7.2 (L) 13.3 - 17.7 [place] g/dL [facility] Specimen Anatomical Collection Method Collection Time Receive d Time (Source) Location / / Volume Laterality Blood specimen 06/17/2014 7:31 AM 014 7:35 (specimen) CDT AM CDT Alejandro Emerson MD LAB - BLOOD ORDERABLES Performing Organization Address City/State/ZIP Code Phon evette Bishop [facility] [address] [address] [facility] LAB (ABNORMAL) Basic metabolic panel (06/17/2014 7:31 AM CDT) athologist Signature Sodium 135 133 - 144 [place] mmol/L [facility] Potassium 5.8 (H) 3.4 - 5.3 [place] mmol/L [facility] Chloride 99 94 - 109 [place] mmol/L [facility] Carbon Dioxide 28 20 - [address] [place] mmol/L [facility] Anion Gap 8 6 - 17 [place] mmol/L [facility] Glucose 82 70 - 99 [place] mg/dL [facility] Comment: Effective 05/08/2014, the reference range for this assay has changed to reflect new instrumentation/methodology. Urea Nitrogen 56 (H) 7 - 30 mg/dL [facility] Comment: Effective 05/08/2014, the reference range for this assay has changed to reflect new instrumentation/methodology. Creatinine 8.19 (H) 0.66 - 1.25 mg/dL [facility] GFR Estimate 7 (L) >60 mL/min/1.7m2 [facility] Comment: Non GFR Calc GFR Estimate If Black 8 (L) >60 mL/min/1.7m2 [facility] Comment: GFR Calc Calcium 9.1 8.5 - 10.1 mg/dL [facility] Comment: Effective 05/08/2014, the reference range for this assay has changed to reflect new instrumentation/methodology. Specimen Anatomical Collection Method Collection Time Receive d Time (Source) Location / / Volume Laterality Blood specimen 06/17/2014 7:31 AM 014 7:35 (specimen) CDT AM CDT Alejandro Emerson MD LAB - BLOOD ORDERABLES Performing Organization Address City/[facility]/ZIP Code Phon e Number M [facility] [address] [place] [address] [phone] [facility] Glucose by meter (06/17/2014 7:17 AM CDT) P athologist Signature Glucose 75 60 - 99 POINT OF CARE mg/dL TEST, GLUCOSE Specimen Anatomical Collection Method Collection Time Receive d Time (Source) Location / / Volume Laterality 06/17/2014 7:17 AM 4 7:21 CDT AM CDT Jaxon Buenrostro MD LAB - BEAKER POCT Performing Organization Address City/[facility]/ZIP Code Phon e Number FV POINT OF CARE TEST, GLUCOSE POINT OF CARE TEST, GLUCOSE (ABNORMAL) Glucose by meter (06/17/2014 1:44 AM CDT) P athologist Signature Glucose 152 (H) 60 - 99 POINT OF CARE mg/dL TEST, GLUCOSE Specimen Anatomical Collection Method Collection Time Receive d Time (Source) Location / / Volume Laterality 06/17/2014 1:44 AM 4 1:51 CDT AM CDT Jaxon Buenrostro MD LAB - BEAKER POCT Performing Organization Address City/[facility]/ZIP Code Phon e Number FV POINT OF CARE TEST, GLUCOSE POINT OF CARE TEST, GLUCOSE Glucose by meter (06/16/2014 9:50 PM CDT) P athologist Signature Glucose 81 60 - 99 POINT OF CARE mg/dL TEST, GLUCOSE Specimen Anatomical Collection Method Collection Time Receive d Time (Source) Location / / Volume Laterality 06/16/2014 9:50 PM 4 9:56 CDT PM CDT Jaxon Buenrostro MD LAB - BEXIANG POCT Performing Organization Address City/State/ZIP Code Phon e Number FV POINT OF CARE TEST, GLUCOSE POINT OF CARE TEST, GLUCOSE (ABNORMAL) Glucose by meter (06/16/2014 4:40 PM CDT) P athologist Signature Glucose 101 (H) 60 - 99 POINT OF CARE mg/dL TEST, GLUCOSE Specimen Anatomical Collection Method Collection Time Receive d Time (Source) Location / / Volume Laterality 06/16/2014 4:40 PM 4 4:50 CDT PM CDT Jaxon Buenrostro MD LAB - BEXIANG POCT Performing Organization Address City/State/ZIP Code Phon e Number FV POINT OF CARE TEST, GLUCOSE POINT OF CARE TEST, GLUCOSE Glucose by meter (06/16/2014 11:05 AM CDT) P athologist Signature Glucose 85 60 - 99 POINT OF CARE mg/dL TEST, GLUCOSE Specimen Anatomical Collection Method Collection Time Receive d Time (Source) Location / / Volume Laterality 06/16/2014 11:05 06/16/2014 AM CDT 11:10 AM CDT Jaxon Buenrostro MD LAB - BEXIANG POCT Performing Organization Address City/State/ZIP Code Phon e Number FV POINT OF CARE TEST, GLUCOSE POINT OF CARE TEST, GLUCOSE Glucose by meter (06/16/2014 7:30 AM CDT) P athologist Signature Glucose 62 60 - 99 POINT OF CARE mg/dL TEST, GLUCOSE Specimen Anatomical Collection Method Collection Time Receive d Time (Source) Location / / Volume Laterality 06/16/2014 7:30 AM 4 7:35 CDT AM CDT Jaxon DEAN - BEXIANG POCT Performing Organization Address City/State/ZIP Code Phon e Number FV POINT OF CARE TEST, GLUCOSE POINT OF CARE TEST, GLUCOSE (ABNORMAL) INR (06/16/2014 7:30 AM CDT) P athologist Signature INR 1.88 (H) 0.86 - 1.14 [facility] Specimen Anatomical Collection Method Collection Time Receive d Time (Source) Location / / Volume Laterality Blood specimen 06/16/2014 7:30 AM 014 7:47 (specimen) CDT AM CDT Rand Benedict MD LAB - BLOOD ORDERABLES Performing Organization Address City/[facility]/ZIP Code Phon e Number [facility] [address] [place] [address] 95 [id number] [place] [address] LAB Platelet count (06/16/2014 7:30 AM CDT) P athologist Signature Platelet Count 164 150 - 450 [place] 10e9/L [facility] Specimen Anatomical Collection Method Collection Time Receive d Time (Source) Location / / Volume Laterality Blood specimen 06/16/2014 7:30 AM 014 7:47 (specimen) CDT AM CDT Rand Benedict MD LAB - BLOOD ORDERABLES Performing Organization Address [facility] Phon e Number [facility] [address] [place] [address] 95 [facility] LAB (ABNORMAL) Glucose by meter (06/15/2014 10:02 PM CDT) P athologist Signature Glucose 115 (H) 60 - 99 POINT OF CARE mg/dL TEST, GLUCOSE Specimen Anatomical Collection Method Collection Time Receive d Time (Source) Location / / Volume Laterality 06/15/2014 10:02 06/15/2014 PM CDT 10:06 PM CDT Jaxon DEAN - DAVID POCT Performing Organization Address City/[facility]/ZIP Code Phon e Number FV POINT OF CARE TEST, GLUCOSE POINT OF CARE TEST, GLUCOSE (ABNORMAL) Glucose by meter (06/15/2014 5:29 PM CDT) P athologist Signature Glucose 111 (H) 60 - 99 POINT OF CARE mg/dL TEST, GLUCOSE Specimen Anatomical Collection Method Collection Time Receive d Time (Source) Location / / Volume Laterality 06/15/2014 5:29 PM 4 5:35 CDT PM CDT Jaxon DEAN - BEAKER POCT Performing Organization Address City/[facility]/ZIP Code Phon e Number FV POINT OF CARE TEST, GLUCOSE POINT OF CARE TEST, GLUCOSE (ABNORMAL) Glucose by meter (06/15/2014 12:55 PM CDT) P athologist Signature Glucose 116 (H) 60 - 99 POINT OF CARE mg/dL TEST, GLUCOSE Specimen Anatomical Collection Method Collection Time Receive d Time (Source) Location / / Volume Laterality 06/15/2014 12:55 06/15/2014 1:01 PM CDT PM CDT Jaxon Buenrostro MD LAB - BEAKER POCT Performing Organization Address City/State/ZIP Code Phon e Number FV POINT OF CARE TEST, GLUCOSE POINT OF CARE TEST, GLUCOSE Glucose by meter (06/15/2014 7:57 AM CDT) athologist Signature Glucose 95 60 - 99 POINT OF CARE mg/dL TEST, GLUCOSE Specimen Anatomical Collection Method Collection Time Receive d Time (Source) Location / / Volume Laterality 06/15/2014 7:57 AM 4 8:11 CDT AM CDT Jaxon DEAN - BEAKER POCT Performing Organization Address City/[facility]/ZIP Code Phon e Number FV POINT OF CARE TEST, GLUCOSE POINT OF CARE TEST, GLUCOSE (ABNORMAL) INR (06/15/2014 7:34 AM CDT) athologist Signature INR 1.63 (H) 0.86 - 1.14 [facility] Specimen Anatomical Collection Method Collection Time Receive d Time (Source) Location / / Volume Laterality Blood specimen 06/15/2014 7:34 AM 014 7:47 (specimen) CDT AM CDT Rand Benedict MD LAB - BLOOD ORDERABLES Performing Organization Address City/[facility]/ZIP Code Phon e Number M [facility] [address] [address] [facility] (ABNORMAL) Hemoglobin (06/15/2014 7:34 AM CDT) P athologist Signature Hemoglobin 7.6 (L) 13.3 - 17.7 [place] g/dL [facility] Specimen Anatomical Collection Method Collection Time Receive d Time (Source) Location / / Volume Laterality Blood specimen 06/15/2014 7:34 AM 014 7:47 (specimen) CDT AM CDT Alejandro Emerson MD LAB - BLOOD ORDERABLES Performing Organization Address City/State/ZIP Code Phon e Number M [facility] [address] [phone] [facility] (ABNORMAL) Renal panel (06/15/2014 7:34 AM CDT) athologist Signature Sodium 133 133 - 144 [place] mmol/L [facility] Potassium 5.9 (H) 3.4 - 5.3 [place] mmol/L [facility] Chloride 96 94 - 109 [place] mmol/L [facility] Carbon Dioxide 26 20 - 32 [place] mmol/L [facility] Anion Gap 11 6 - 17 [place] mmol/L [facility] Glucose 90 70 - 99 [place] mg/dL [facility] Comment: Effective 05/08/2014, the reference range for this assay has changed to reflect new instrumentation/methodology. Urea Nitrogen 65 (H) 7 - 30 mg/dL [facility] Comment: Effective 05/08/2014, the reference range for this assay has changed to reflect new instrumentation/methodology. Creatinine 7.87 (H) 0.66 - 1.25 mg/dL [facility] GFR Estimate 7 (L) >60 mL/min/1.7m2 [facility] Comment: Non GFR Calc GFR Estimate If Black 9 (L) >60 mL/min/1.7m2 [facility] Comment: GFR Calc Calcium 9.0 8.5 - 10.1 mg/dL [facility] Comment: Effective 05/08/2014, the reference range for this assay has changed to reflect new instrumentation/methodology. Phosphorus 2.4 (L) 2.5 - 4.5 mg/dL [facility] Albumin 3.2 (L) 3.9 - 5.1 g/dL [facility] Specimen Anatomical Collection Method Collection Time Receive d Time (Source) Location / / Volume Laterality Blood specimen 06/15/2014 7:34 AM 014 7:47 (specimen) CDT AM CDT Alejandro Emerson MD LAB - BLOOD ORDERABLES Performing Organization Address City/State/ZIP Code Phon e Number M [facility] [address] [place] [address] [facility] Glucose by meter (06/15/2014 2:40 AM CDT) P athologist Signature Glucose 82 60 - 99 POINT OF CARE mg/dL TEST, GLUCOSE Specimen Anatomical Collection Method Collection Time Receive d Time (Source) Location / / Volume Laterality 06/15/2014 2:40 AM 4 2:45 CDT AM CDT Jaxon Buenrostro MD LAB - BEAKER POCT Performing Organization Address City/State/ZIP Code Phon e Number FV POINT OF CARE TEST, GLUCOSE POINT OF CARE TEST, GLUCOSE Glucose by meter (06/14/2014 9:46 PM CDT) P athologist Signature Glucose 93 60 - 99 POINT OF CARE mg/dL TEST, GLUCOSE Specimen Anatomical Collection Method Collection Time Receive d Time (Source) Location / / Volume Laterality 06/14/2014 9:46 PM 4 9:55 CDT PM CDT Jaxon Buenrostro MD LAB - BEAKER POCT Performing Organization Address City/State/ZIP Code Phon e Number FV POINT OF CARE TEST, GLUCOSE POINT OF CARE TEST, GLUCOSE Occult blood stool (06/14/2014 7:10 PM CDT) P athologist Signature Occult Blood Negative NEG [facility] Specimen Anatomical Collection Method Collection Time Receive d Time (Source) Location / / Volume Laterality Stool specimen STOOL SPECIMEN / 06/14/2014 7:10 PM 02/2014 7:16 (specimen) Unknown CDT PM CDT Alejandro Emerson MD LAB - STOOLS ORDERABLES Performing Organization Address City/State/ZIP Code Phon e Number M [facility] [address] [place] [address] [facility] Glucose by meter (06/14/2014 4:36 PM CDT) athologist Signature Glucose 71 60 - 99 POINT OF CARE mg/dL TEST, GLUCOSE Specimen Anatomical Collection Method Collection Time Receive d Time (Source) Location / / Volume Laterality 06/14/2014 4:36 PM 4 4:40 CDT PM CDT Jaxon Buenrostro MD LAB - BEAKER POCT Performing Organization Address City/State/ZIP Code Phon e Number FV POINT OF CARE TEST, GLUCOSE POINT OF CARE TEST, GLUCOSE Glucose by meter (06/14/2014 12:44 PM CDT) athologist Signature Glucose 83 60 - 99 POINT OF CARE mg/dL TEST, GLUCOSE Specimen Anatomical Collection Method Collection Time Receive d Time (Source) Location / / Volume Laterality 06/14/2014 12:44 06/14/2014 PM CDT 12:50 PM CDT Jaxon Buenrostro MD LAB - BEAKER POCT Performing Organization Address City/[facility]/ZIP Code Phon e Number FV POINT OF CARE TEST, GLUCOSE POINT OF CARE TEST, GLUCOSE (ABNORMAL) INR (06/14/2014 7:25 AM CDT) athologist Signature INR 1.75 (H) 0.86 - 1.14 [facility] Specimen Anatomical Collection Method Collection Time Receive d Time (Source) Location / / Volume Laterality Blood specimen 06/14/2014 7:25 AM 014 7:35 (specimen) CDT AM CDT Rand Benedict MD LAB - BLOOD ORDERABLES Performing Organization Address City/[facility] Phon e Number M [facility] [address] [phone] [facility] (ABNORMAL) Potassium (06/14/2014 7:25 AM CDT) athologist Signature Potassium 5.5 (H) 3.4 - 5.3 [place] mmol/L [facility] Specimen Anatomical Collection Method Collection Time Receive d Time (Source) Location / / Volume Laterality Blood specimen 06/14/2014 7:25 AM 014 7:35 (specimen) CDT AM CDT Alejandro Emerson MD LAB - BLOOD ORDERABLES Performing Organization Address City/State/ZIP Code Phon e Number M [facility] [address] [place] [address] [facility] (ABNORMAL) Hemoglobin (06/14/2014 7:25 AM CDT) P athologist Signature Hemoglobin 7.6 (L) 13.3 - 17.7 [place] g/dL [facility] Specimen Anatomical Collection Method Collection Time Receive d Time (Source) Location / / Volume Laterality Blood specimen 06/14/2014 7:25 AM 014 7:35 (specimen) CDT AM CDT Alejandro Emerson MD LAB - BLOOD ORDERABLES Performing Organization Address City/[facility]/ZIP Code Phon e Number M [facility] [address] [place] [address] [facility] Glucose by meter (06/14/2014 7:10 AM CDT) P athologist Signature Glucose 83 60 - 99 POINT OF CARE mg/dL TEST, GLUCOSE Specimen Anatomical Collection Method Collection Time Receive d Time (Source) Location / / Volume Laterality 06/14/2014 7:10 AM 4 7:15 CDT AM CDT Jaxon Buenrostro MD LAB - BEAKER POCT Performing Organization Address City/[facility]/ZIP Code Phon e Number FV POINT OF CARE TEST, GLUCOSE POINT OF CARE TEST, GLUCOSE Glucose by meter (06/14/2014 2:14 AM CDT) P athologist Signature Glucose 75 60 - 99 POINT OF CARE mg/dL TEST, GLUCOSE Specimen Anatomical Collection Method Collection Time Receive d Time (Source) Location / / Volume Laterality 06/14/2014 2:14 AM 4 2:20 CDT AM CDT Jaxon Buenrostro MD LAB - BEAKER POCT Performing Organization Address City/[facility]/ZIP Code Phon e Number FV POINT OF CARE TEST, GLUCOSE POINT OF CARE TEST, GLUCOSE (ABNORMAL) Glucose by meter (06/13/2014 9:21 PM CDT) P athologist Signature Glucose 113 (H) 60 - 99 POINT OF CARE mg/dL TEST, GLUCOSE Specimen Anatomical Collection Method Collection Time Receive d Time (Source) Location / / Volume Laterality 06/13/2014 9:21 PM 4 9:25 CDT PM CDT Jaxon Buenrostro MD LAB - BEXIANG POCT Performing Organization Address City/[facility]/ZIP Code Phon e Number FV POINT OF CARE TEST, GLUCOSE POINT OF CARE TEST, GLUCOSE Glucose by meter (06/13/2014 4:57 PM CDT) P athologist Signature Glucose 92 60 - 99 POINT OF CARE mg/dL TEST, GLUCOSE Specimen Anatomical Collection Method Collection Time Receive d Time (Source) Location / / Volume Laterality 06/13/2014 4:57 PM 4 5:01 CDT PM CDT Jaxon Buenrostro MD LAB - BEXIANG POCT Performing Organization Address City/[facility] Code Phon e Number FV POINT OF CARE TEST, GLUCOSE POINT OF CARE TEST, GLUCOSE Glucose by meter (06/13/2014 1:55 PM CDT) P athologist Signature Glucose 86 60 - 99 POINT OF CARE mg/dL TEST, GLUCOSE Specimen Anatomical Collection Method Collection Time Receive d Time (Source) Location / / Volume Laterality 06/13/2014 1:55 PM 4 2:00 CDT PM CDT Jaxon Buenrostro MD LAB - BEXIANG POCT Performing Organization Address City/[facility]/ZIP Code Phon e Number FV POINT OF CARE TEST, GLUCOSE POINT OF CARE TEST, GLUCOSE Glucose by meter (06/13/2014 7:28 AM CDT) P athologist Signature Glucose 80 60 - 99 POINT OF CARE mg/dL TEST, GLUCOSE Specimen Anatomical Collection Method Collection Time Receive d Time (Source) Location / / Volume Laterality 06/13/2014 7:28 AM 4 7:30 CDT AM CDT Jaxon Buenrostro MD LAB - BEXIANG POCT Performing Organization Address City/State/ZIP Code Phon e Number FV POINT OF CARE TEST, GLUCOSE POINT OF CARE TEST, GLUCOSE (ABNORMAL) INR (06/13/2014 6:55 AM CDT) athologist Signature INR 2.50 (H) 0.86 - 1.14 [facility] Specimen Anatomical Collection Method Collection Time Receive d Time (Source) Location / / Volume Laterality Blood specimen 06/13/2014 6:55 AM 014 7:08 (specimen) CDT AM CDT Rand Benedict MD LAB - BLOOD ORDERABLES Performing Organization Address City/State/ZIP Code Phon e Number M [facility] [address] [place] [address] [facility] Platelet count (06/13/2014 6:55 AM CDT) athologist Signature Platelet Count 152 150 - 450 [place] 10e9/L [facility] Specimen Anatomical Collection Method Collection Time Receive d Time (Source) Location / / Volume Laterality Blood specimen 06/13/2014 6:55 AM 014 7:08 (specimen) CDT AM CDT Rand Benedict MD LAB - BLOOD ORDERABLES Performing Organization Address City/State/ZIP Code Phon e Number M [facility] [address] [address] [facility] (ABNORMAL) Hemoglobin (06/13/2014 6:55 AM CDT) athologist Signature Hemoglobin 7.6 (L) 13.3 - 17.7 [place] g/dL [facility] Specimen Anatomical Collection Method Collection Time Receive d Time (Source) Location / / Volume Laterality Blood specimen 06/13/2014 6:55 AM 014 7:08 (specimen) CDT AM CDT Alejandro Emerson MD LAB - BLOOD ORDERABLES Performing Organization Address City/State/ZIP Code Phon e Number M [facility] [address] [place] [address] [facility] (ABNORMAL) Potassium (06/13/2014 6:55 AM CDT) P athologist Signature Potassium 6.3 (HH) 3.4 - 5.3 [place] mmol/L [facility] Comment: Critical Value called to and read back shireen PULIDO (33) @ [phone] Specimen Anatomical Collection Method Collection Time Receive d Time (Source) Location / / Volume Laterality Blood specimen 06/13/2014 6:55 AM 014 7:08 (specimen) CDT AM CDT Alejandro Emerson MD LAB - BLOOD ORDERABLES Performing Organization Address City/State/ZIP Code Phon e Number M [facility] [address] [place] [address] [facility] Glucose by meter (06/12/2014 9:19 PM CDT) athologist Signature Glucose 99 60 - 99 POINT OF CARE mg/dL TEST, GLUCOSE Specimen Anatomical Collection Method Collection Time Receive d Time (Source) Location / / Volume Laterality 06/12/2014 9:19 PM 4 9:26 CDT PM CDT Jaxon DEAN - BEAKER POCT Performing Organization Address City/State/ZIP Code Phon e Number FV POINT OF CARE TEST, GLUCOSE POINT OF CARE TEST, GLUCOSE Glucose by meter (06/12/2014 4:56 PM CDT) P athologist Signature Glucose 78 60 - 99 POINT OF CARE mg/dL TEST, GLUCOSE Specimen Anatomical Collection Method Collection Time Receive d Time (Source) Location / / Volume Laterality 06/12/2014 4:56 PM 4 5:01 CDT PM CDT Jaxon Buenrostro MD LAB - BEAKER POCT Performing Organization Address City/State/ZIP Code Phon e Number FV POINT OF CARE TEST, GLUCOSE POINT OF CARE TEST, GLUCOSE Glucose by meter (06/12/2014 11:40 AM CDT) P athologist Signature Glucose 79 60 - 99 POINT OF CARE mg/dL TEST, GLUCOSE Specimen Anatomical Collection Method Collection Time Receive d Time (Source) Location / / Volume Laterality 06/12/2014 11:40 06/12/2014 AM CDT 11:46 AM CDT Jaxon DEAN - BEXIANG POCT Performing Organization Address City/State/ZIP Code Phon e Number FV POINT OF CARE TEST, GLUCOSE POINT OF CARE TEST, GLUCOSE (ABNORMAL) INR (06/12/2014 7:07 AM CDT) athologist Signature INR 3.07 (H) 0.86 - 1.14 [facility] Specimen Anatomical Collection Method Collection Time Receive d Time (Source) Location / / Volume Laterality Blood specimen 06/12/2014 7:07 AM 014 7:13 (specimen) CDT AM CDT Rand Benedict MD LAB - BLOOD ORDERABLES Performing Organization Address City/State/ZIP Code Phon e Number M [facility] [address] [place] [address] [facility] (ABNORMAL) Glucose by meter (06/11/2014 9:30 PM CDT) athologist Signature Glucose 101 (H) 60 - 99 POINT OF CARE mg/dL TEST, GLUCOSE Specimen Anatomical Collection Method Collection Time Receive d Time (Source) Location / / Volume Laterality 06/11/2014 9:30 PM 9:35 CDT PM CDT Jaxon DEAN - BEXIANG POCT Performing Organization Address City/State/ZIP Code Phon e Number FV POINT OF CARE TEST, GLUCOSE POINT OF CARE TEST, GLUCOSE (ABNORMAL) Glucose by meter (06/11/2014 4:45 PM CDT) athologist Signature Glucose 117 (H) 60 - 99 POINT OF CARE mg/dL TEST, GLUCOSE Specimen Anatomical Collection Method Collection Time Receive d Time (Source) Location / / Volume Laterality 06/11/2014 4:45 PM 4 4:50 CDT PM CDT Jaxon DEAN - DAVID POCT Performing Organization Address City/State/ZIP Code Phon e Number FV POINT OF CARE TEST, GLUCOSE POINT OF CARE TEST, GLUCOSE (ABNORMAL) Ferritin (06/11/2014 1:00 PM CDT) athologist Signature Ferritin 787 (H) 20 - 300 [facility]/mL [facility] Specimen Anatomical Collection Method Collection Time Receive d Time (Source) Location / / Volume Laterality Blood specimen 06/11/2014 1:00 PM 014 1:28 (specimen) CDT PM CDT Alejandro Emerson MD LAB - BLOOD ORDERABLES Performing Organization Address City/State/ZIP Code Phon e Number M [facility] [address] [place] [address] [phone] [facility] (ABNORMAL) Iron and iron binding capacity (06/11/2014 1:00 PM CDT) athologist Signature Iron 26 (L) 35 - 180 [place] ug/dL [facility] Iron Binding 207 (L) 240 - 430 [place] Cap ug/dL [facility] Iron Saturation 13 (L) 15 - 46 % [facility] LAB Specimen Anatomical Collection Method Collection Time Receive d Time (Source) Location / / Volume Laterality Blood specimen 06/11/2014 1:00 PM 014 1:28 (specimen) CDT PM CDT Alejandro Emerson MD LAB - BLOOD ORDERABLES Performing Organization Address City/State/ZIP Code Phon e Number M [facility] [address] [place] [address] [facility] (ABNORMAL) Hemoglobin (06/11/2014 1:00 PM CDT) P athologist Signature Hemoglobin 8.1 (L) 13.3 - 17.7 [place] g/dL [facility] Specimen Anatomical Collection Method Collection Time Receive d Time (Source) Location / / Volume Laterality Blood specimen 06/11/2014 1:00 PM 014 1:28 (specimen) CDT PM CDT Alejandro Emerson MD LAB - BLOOD ORDERABLES Performing Organization Address City/State/ZIP Code Phon e Number M [facility] [address] [place] [address] [facility] Potassium (06/11/2014 1:00 PM CDT) P athologist Signature Potassium 3.7 3.4 - 5.3 [place] mmol/L [facility] Specimen Anatomical Collection Method Collection Time Receive d Time (Source) Location / / Volume Laterality Blood specimen 06/11/2014 1:00 PM 014 1:28 (specimen) CDT PM CDT Alejandro Emerson MD LAB - BLOOD ORDERABLES Performing Organization Address City/State/ZIP Code Phon e Number M [facility] [address] [place] [address] [facility] Glucose by meter (06/11/2014 12:04 PM CDT) athologist Signature Glucose 75 60 - 99 POINT OF CARE mg/dL TEST, GLUCOSE Specimen Anatomical Collection Method Collection Time Receive d Time (Source) Location / / Volume Laterality 06/11/2014 12:04 06/11/2014 PM CDT 12:11 PM CDT Jaxon DEAN - DAVID POCT Performing Organization Address City/State/ZIP Code Phon e Number FV POINT OF CARE TEST, GLUCOSE POINT OF CARE TEST, GLUCOSE Glucose by meter (06/11/2014 7:05 AM CDT) P athologist Signature Glucose 97 60 - 99 POINT OF CARE mg/dL TEST, GLUCOSE Specimen Anatomical Collection Method Collection Time Receive d Time (Source) Location / / Volume Laterality 06/11/2014 7:05 AM 4 7:11 CDT AM CDT Jaxon DEAN - DAVID POCT Performing Organization Address City/State/ZIP Code Phon e Number FV POINT OF CARE TEST, GLUCOSE POINT OF CARE TEST, GLUCOSE (ABNORMAL) INR (06/11/2014 6:40 AM CDT) athologist Signature INR 2.65 (H) 0.86 - 1.14 [facility] Specimen Anatomical Collection Method Collection Time Receive d Time (Source) Location / / Volume Laterality Blood specimen 06/11/2014 6:40 AM 014 6:51 (specimen) CDT AM CDT Rand Benedict MD LAB - BLOOD ORDERABLES Performing Organization Address City/State/ZIP Code Phon e Number M [facility] [address] [place] [address] [facility] Glucose by meter (06/10/2014 9:52 PM CDT) P athologist Signature Glucose 94 60 - 99 POINT OF CARE mg/dL TEST, GLUCOSE Specimen Anatomical Collection Method Collection Time Receive d Time (Source) Location / / Volume Laterality 06/10/2014 9:52 PM 4 9:55 CDT PM CDT Jaxon Buenrostro MD LAB - BEXIANG POCT Performing Organization Address City/[facility]/ZIP Code Phon e Number FV POINT OF CARE TEST, GLUCOSE POINT OF CARE TEST, GLUCOSE (ABNORMAL) Glucose by meter (06/10/2014 4:31 PM CDT) P athologist Signature Glucose 140 (H) 60 - 99 POINT OF CARE mg/dL TEST, GLUCOSE Specimen Anatomical Collection Method Collection Time Receive d Time (Source) Location / / Volume Laterality 06/10/2014 4:31 PM 4 4:35 CDT PM CDT Jaxon DEAN - BEXIANG POCT Performing Organization Address City/[facility]/ZIP Code Phon e Number FV POINT OF CARE TEST, GLUCOSE POINT OF CARE TEST, GLUCOSE Glucose by meter (06/10/2014 11:55 AM CDT) P athologist Signature Glucose 80 60 - 99 POINT OF CARE mg/dL TEST, GLUCOSE Specimen Anatomical Collection Method Collection Time Receive d Time (Source) Location / / Volume Laterality 06/10/2014 11:55 06/10/2014 AM CDT 12:01 PM CDT Jaoxn DEAN - BEXIANG POCT Performing Organization Address City/[facility]/ZIP Code Phon e Number FV POINT OF CARE TEST, GLUCOSE POINT OF CARE TEST, GLUCOSE Glucose by meter (06/10/2014 7:26 AM CDT) P athologist Signature Glucose 82 60 - 99 POINT OF CARE mg/dL TEST, GLUCOSE Specimen Anatomical Collection Method Collection Time Receive d Time (Source) Location / / Volume Laterality 06/10/2014 7:26 AM 201 4 7:30 CDT AM CDT Jaxon Buenrostro MD LAB - BEAKER POCT Performing Organization Address City/State/ZIP Code Phon e Number FV POINT OF CARE TEST, GLUCOSE POINT OF CARE TEST, GLUCOSE (ABNORMAL) INR (06/10/2014 7:13 AM CDT) P athologist Signature INR 2.67 (H) 0.86 - 1.14 [facility] Specimen Anatomical Collection Method Collection Time Receive d Time (Source) Location / / Volume Laterality Blood specimen 06/10/2014 7:13 AM 014 7:17 (specimen) CDT AM CDT Rand Benedict MD LAB - BLOOD ORDERABLES Performing Organization Address City/[facility]/ZIP Code Phon e Number M [facility] [address] [place] [address] [phone] [facility] (ABNORMAL) CBC with platelets (06/10/2014 7:13 AM CDT) Analysis Performed At Patho logist Time Signature WBC 6.3 4.0 - 11.0 [place] 10e9/L [facility] RBC Count 2.89 (L) 4.4 - 5.9 [place] 10e12/L [facility] Hemoglobin 7.3 (L) 13.3 - [place] 17.7 g/dL [facility] Hematocrit 24.3 (L) 40.0 - [place] 53.0 % [facility] MCV 84 78 - 100 [place] fl [facility] MCH 25.3 (L) 26.5 - [place] 33.0 pg [facility] MCHC 30.0 (L) 31.5 - [place] 36.5 g/dL [facility] RDW 18.1 (H) 10.0 - [place] 15.0 % [facility] Platelet Count 105 (L) 150 - 450 [place] 10e9/L [facility] Specimen Anatomical Collection Method Collection Time Receive d Time (Source) Location / / Volume Laterality Blood specimen 06/10/2014 7:13 AM 014 7:17 (specimen) CDT AM CDT Chi Brunson MD LAB - BLOOD ORDERABLES Performing Organization Address City/State/ZIP Code Phon e Number M [facility] [address] [phone] [facility] (ABNORMAL) Renal panel (06/10/2014 7:13 AM CDT) P athologist Signature Sodium 129 (L) 133 - 144 [place] mmol/L [facility] Potassium 5.2 3.4 - 5.3 [place] mmol/L [facility] Chloride 97 94 - 109 [place] mmol/L [facility] Carbon Dioxide 26 20 - 32 [place] mmol/L [facility] Anion Gap 6 6 - 17 [place] mmol/L [facility] Glucose 75 70 - 99 [place] mg/dL [facility] Comment: Effective 05/08/2014, the reference range for this assay has changed to reflect new instrumentation/methodology. Urea Nitrogen 57 (H) 7 - 30 mg/dL [facility] Comment: Effective 05/08/2014, the reference range for this assay has changed to reflect new instrumentation/methodology. Creatinine 7.75 (H) 0.66 - 1.25 mg/dL [facility] GFR Estimate 7 (L) >60 mL/min/1.7m2 [facility] Comment: Non GFR Calc GFR Estimate If Black 9 (L) >60 mL/min/1.7m2 [facility] Comment: GFR Calc Calcium 8.4 (L) 8.5 - 10.1 mg/dL [facility] Comment: Effective 05/08/2014, the reference range for this assay has changed to reflect new instrumentation/methodology. Phosphorus 2.1 (L) 2.5 - 4.5 mg/dL [facility] Albumin 2.7 (L) 3.9 - 5.1 g/dL [facility] Specimen Anatomical Collection Method Collection Time Receive d Time (Source) Location / / Volume Laterality Blood specimen 06/10/2014 7:13 AM 014 7:17 (specimen) CDT AM CDT Chi Brunson MD LAB - BLOOD ORDERABLES Performing Organization Address City/[facility]/ZIP Code Phon e Number M [facility] [address] [address] [phone] [facility] Glucose by meter (06/10/2014 1:58 AM CDT) athologist Signature Glucose 86 60 - 99 POINT OF CARE mg/dL TEST, GLUCOSE Specimen Anatomical Collection Method Collection Time Receive d Time (Source) Location / / Volume Laterality 06/10/2014 1:58 AM 4 2:06 CDT AM CDT Jaxon DEAN - BEXIANG POCT Performing Organization Address City/[facility]/ZIP Code Phon e Number FV POINT OF CARE TEST, GLUCOSE POINT OF CARE TEST, GLUCOSE Potassium (06/10/2014 12:40 AM CDT) athologist Signature Potassium 5.1 3.4 - 5.3 [place] mmol/L [facility] Specimen Anatomical Collection Method Collection Time Receive d Time (Source) Location / / Volume Laterality Blood specimen 06/10/2014 12:40 4 (specimen) AM CDT 12:42 AM CDT Chi Brunson MD LAB - BLOOD ORDERABLES Performing Organization Address City/[facility]/[place]IP [facility] [place] Number M [facility] [address] [phone] [facility] Glucose by meter (06/09/2014 9:17 PM CDT) athologist Signature Glucose 88 60 - 99 POINT OF CARE mg/dL TEST, GLUCOSE Specimen Anatomical Collection Method Collection Time Receive d Time (Source) Location / / Volume Laterality 06/09/2014 9:17 PM 4 9:21 CDT PM CDT Jaxon Buenrostro MD LAB - BEAKER POCT Performing Organization Address City/[facility]/ZIP Code Phon e Number FV POINT OF CARE TEST, GLUCOSE POINT OF CARE TEST, GLUCOSE (ABNORMAL) Potassium (06/09/2014 8:45 PM CDT) athologist Signature Potassium 6.0 (H) 3.4 - 5.3 [place] mmol/L [facility] Specimen Anatomical Collection Method Collection Time Receive d Time (Source) Location / / Volume Laterality Blood specimen 06/09/2014 8:45 PM 014 8:47 (specimen) CDT PM CDT Chi Brunson MD LAB - BLOOD ORDERABLES Performing Organization Address City/State/ZIP Code Phon e Number [facility] [address] [place] [address] [phone] [facility] Glucose by meter (06/09/2014 5:13 PM CDT) athologist Signature Glucose 82 60 - 99 POINT OF CARE mg/dL TEST, GLUCOSE Specimen Anatomical Collection Method Collection Time Receive d Time (Source) Location / / Volume Laterality 06/09/2014 5:13 PM 4 5:16 CDT PM CDT Jaxon Buenrostro MD LAB - BEAKER POCT Performing Organization Address City/[facility]/ZIP Code Phon e Number FV POINT OF CARE TEST, GLUCOSE POINT OF CARE TEST, GLUCOSE (ABNORMAL) Potassium (06/09/2014 3:04 PM CDT) athologist Signature Potassium 5.9 (H) 3.4 - 5.3 [place] mmol/L [facility] Specimen Anatomical Collection Method Collection Time Receive d Time (Source) Location / / Volume Laterality Blood specimen 06/09/2014 3:04 PM 014 3:10 (specimen) CDT PM CDT Chi Brunson MD LAB - BLOOD ORDERABLES Performing Organization Address City/[facility]/ZIP Code Phon e Number [facility] [address] [place] [address] [facility] Glucose by meter (06/09/2014 12:30 PM CDT) athologist Signature Glucose 88 60 - 99 POINT OF CARE mg/dL TEST, GLUCOSE Specimen Anatomical Collection Method Collection Time Receive d Time (Source) Location / / Volume Laterality 06/09/2014 12:30 06/09/2014 PM CDT 12:35 PM CDT Jaxon Buenrostro MD LAB - BEXIANG POCT Performing Organization Address City/State/ZIP Code Phon e Number FV POINT OF CARE TEST, GLUCOSE POINT OF CARE TEST, GLUCOSE (ABNORMAL) Potassium (06/09/2014 10:57 AM CDT) P athologist Signature Potassium 5.7 (H) 3.4 - 5.3 [place] mmol/L [facility] Specimen Anatomical Collection Method Collection Time Receive d Time (Source) Location / / Volume Laterality Blood specimen 06/09/2014 10:57 4 (specimen) AM CDT 10:59 AM CDT Rand Benedict MD LAB - BLOOD ORDERABLES Performing Organization Address City/[facility]/ZIP Code Phon e Number [facility] [address] [phone] [facility] Glucose by meter (06/09/2014 8:10 AM CDT) P athologist Signature Glucose 87 60 - 99 POINT OF CARE mg/dL TEST, GLUCOSE Specimen Anatomical Collection Method Collection Time Receive d Time (Source) Location / / Volume Laterality 06/09/2014 8:10 AM 4 8:21 CDT AM CDT Jaxon DEAN - BEAKER POCT Performing Organization Address City/[facility]/ZIP Code Phon e Number FV POINT OF CARE TEST, GLUCOSE POINT OF CARE TEST, GLUCOSE (ABNORMAL) INR (06/09/2014 7:40 AM CDT) P athologist Signature INR 2.01 (H) 0.86 - 1.14 [facility] Specimen Anatomical Collection Method Collection Time Receive d Time (Source) Location / / Volume Laterality Blood specimen 06/09/2014 7:40 AM 014 7:42 (specimen) CDT AM CDT Rand Benedict MD LAB - BLOOD ORDERABLES Performing Organization Address City/[facility]/ZIP Code Phon e Number M [facility] [address] [address] [phone] [facility] (ABNORMAL) Basic metabolic panel (06/09/2014 7:40 AM CDT) P athologist Signature Sodium 135 133 - 144 [place] mmol/L [facility] Potassium 5.9 (H) 3.4 - 5.3 [place] mmol/L [facility] Chloride 100 94 - 109 [place] mmol/L [facility] Carbon Dioxide 30 20 - 32 [place] mmol/L [facility] Anion Gap 5 (L) 6 - 17 [place] mmol/L [facility] Glucose 79 70 - 99 [place] mg/dL [facility] Comment: Effective 05/08/2014, the reference range for this assay has changed to reflect new instrumentation/methodology. Urea Nitrogen 38 (H) 7 - 30 mg/dL [facility] Comment: Effective 05/08/2014, the reference range for this assay has changed to reflect new instrumentation/methodology. Creatinine 6.19 (H) 0.66 - 1.25 mg/dL [facility] GFR Estimate 10 (L) >60 mL/min/1.7m2 [facility] Comment: Non GFR Calc GFR Estimate If Black 12 (L) >60 mL/min/1.7m2 [facility] Comment: GFR Calc Calcium 8.8 8.5 - 10.1 mg/dL [facility] Comment: Effective 05/08/2014, the reference range for this assay has changed to reflect new instrumentation/methodology. Specimen Anatomical Collection Method Collection Time Receive d Time (Source) Location / / Volume Laterality Blood specimen 06/09/2014 7:40 AM 014 7:42 (specimen) CDT AM CDT Chi Brunson MD LAB - BLOOD ORDERABLES Performing Organization Address City/State/ZIP Code Phon e Number M [facility] [address] [phone] [facility] (ABNORMAL) CBC with platelets (06/09/2014 7:40 AM CDT) Analysis Performed At Patho logist Time Signature WBC 6.1 4.0 - 11.0 [place] 10e9/L [facility] RBC Count 3.20 (L) 4.4 - 5.9 [place] 10e12/L [facility] Hemoglobin 8.0 (L) 13.3 - [place] 17.7 g/dL [facility] Hematocrit 27.3 (L) 40.0 - [place] 53.0 % [facility] MCV 85 78 - 100 [place] fl [facility] MCH 25.0 (L) 26.5 - [place] 33.0 pg [facility] MCHC 29.3 (L) 31.5 - [place] 36.5 g/dL [facility] RDW 18.0 (H) 10.0 - [place] 15.0 % [facility] Platelet Count 112 (L) 150 - 450 [place] 10e9/L [facility] Specimen Anatomical Collection Method Collection Time Receive d Time (Source) Location / / Volume Laterality Blood specimen 06/09/2014 7:40 AM 014 7:42 (specimen) CDT AM CDT Chi Brunson MD LAB - BLOOD ORDERABLES Performing Organization Address City/State/ZIP Code Phon e Number [facility] [address] [place] [address] [facility] Glucose by meter (06/08/2014 8:51 PM CDT) P athologist Signature Glucose 88 60 - 99 POINT OF CARE mg/dL TEST, GLUCOSE Specimen Anatomical Collection Method Collection Time Receive d Time (Source) Location / / Volume Laterality 06/08/2014 8:51 PM 4 9:06 CDT PM CDT Jaxon Buenrostro MD LAB - BEAKER POCT Performing Organization Address City/State/ZIP Code Phon e Number FV POINT OF CARE TEST, GLUCOSE POINT OF CARE TEST, GLUCOSE Glucose by meter (06/08/2014 4:39 PM CDT) P athologist Signature Glucose 86 60 - 99 POINT OF CARE mg/dL TEST, GLUCOSE Specimen Anatomical Collection Method Collection Time Receive d Time (Source) Location / / Volume Laterality 06/08/2014 4:39 PM 4 4:45 CDT PM CDT Jaxon Buenrostro MD LAB - BEAKER POCT Performing Organization Address City/State/ZIP Code Phon e Number FV POINT OF CARE TEST, GLUCOSE POINT OF CARE TEST, GLUCOSE Glucose by meter (06/08/2014 1:26 PM CDT) P athologist Signature Glucose 89 60 - 99 POINT OF CARE mg/dL TEST, GLUCOSE Specimen Anatomical Collection Method Collection Time Receive d Time (Source) Location / / Volume Laterality 06/08/2014 1:26 PM 4 1:30 CDT PM CDT Jaxon DEAN - BEAKER POCT Performing Organization Address City/State/ZIP Code Phon e Number FV POINT OF CARE TEST, GLUCOSE POINT OF CARE TEST, GLUCOSE Glucose by meter (06/08/2014 6:58 AM CDT) P athologist Signature Glucose 75 60 - 99 POINT OF CARE mg/dL TEST, GLUCOSE Specimen Anatomical Collection Method Collection Time Receive d Time (Source) Location / / Volume Laterality 06/08/2014 6:58 AM 4 7:01 CDT AM CDT Jaxon DEAN - BEXIANG POCT Performing Organization Address City/State/ZIP Code Phon e Number FV POINT OF CARE TEST, GLUCOSE POINT OF CARE TEST, GLUCOSE (ABNORMAL) INR (06/08/2014 6:43 AM CDT) P athologist Signature INR 1.49 (H) 0.86 - 1.14 [facility] Specimen Anatomical Collection Method Collection Time Receive d Time (Source) Location / / Volume Laterality Blood specimen 06/08/2014 6:43 AM 014 6:50 (specimen) CDT AM CDT Rand Benedict MD LAB - BLOOD ORDERABLES Performing Organization Address City/State/ZIP Code Phon e Number [facility] [address] [phone] [facility] (ABNORMAL) CBC with platelets (06/08/2014 6:43 AM CDT) Analysis Performed At Patho logist Time Signature WBC 6.8 4.0 - 11.0 [place] 10e9/L [facility] RBC Count 3.12 (L) 4.4 - 5.9 [place] 10e12/L [facility] Hemoglobin 7.9 (L) 13.3 - [place] 17.7 g/dL [facility] Hematocrit 26.6 (L) 40.0 - [place] 53.0 % [facility] MCV 85 78 - 100 [place] fl [facility] MCH 25.3 (L) 26.5 - [place] 33.0 pg [facility] MCHC 29.7 (L) 31.5 - [place] 36.5 g/dL [facility] RDW 17.9 (H) 10.0 - [place] 15.0 % [facility] Platelet Count 118 (L) 150 - 450 [place] 10e9/L [facility] Specimen Anatomical Collection Method Collection Time Receive d Time (Source) Location / / Volume Laterality Blood specimen 06/08/2014 6:43 AM 014 6:50 (specimen) CDT AM CDT Chi Brunson MD LAB - BLOOD ORDERABLES Performing Organization Address City/State/ZIP Code Phon e Number M [facility] [address] [phone] [facility] (ABNORMAL) Potassium (06/08/2014 6:43 AM CDT) P athologist Signature Potassium 6.2 (HH) 3.4 - 5.3 [place] mmol/L [facility] Comment: Critical Value called to and read back shireen DE [place] IN 33 AT 0705 Specimen Anatomical Collection Method Collection Time Receive d Time (Source) Location / / Volume Laterality Blood specimen 06/08/2014 6:43 AM 014 6:50 (specimen) CDT AM CDT Chi Brunson MD LAB - BLOOD ORDERABLES Performing Organization Address City/State/ZIP Code Phon e Number M [facility] [address] [phone] [facility] Vancomycin level (06/08/2014 6:43 AM CDT) P athologist Signature Vancomycin 27.9 mg/L [facility] Comment: Traditional Dosing therapeutic Range: ?Trough 8-20 mg/L ?Peak 20-50 mg/L Specimen Anatomical Collection Method Collection Time Receive d Time (Source) Location / / Volume Laterality Blood specimen 06/08/2014 6:43 AM 014 6:50 (specimen) CDT AM CDT Emi Bernard [facility] LAB - BLOOD ORDERABLES Performing Organization Address City/[facility] Phon e Number M [facility] [address] [place] [address] [phone] [facility] (ABNORMAL) Glucose by meter (06/07/2014 9:49 PM CDT) P athologist Signature Glucose 137 (H) 60 - 99 POINT OF CARE mg/dL TEST, GLUCOSE Specimen Anatomical Collection Method Collection Time Receive d Time (Source) Location / / Volume Laterality 06/07/2014 9:49 PM 4 CDT 10:01 PM CDT Jaxon DEAN - DAVID POCT Performing Organization Address City/[facility] Code Phon e Number FV POINT OF CARE TEST, GLUCOSE POINT OF CARE TEST, GLUCOSE (ABNORMAL) Glucose by meter (06/07/2014 4:56 PM CDT) P athologist Signature Glucose 106 (H) 60 - 99 POINT OF CARE mg/dL TEST, GLUCOSE Specimen Anatomical Collection Method Collection Time Receive d Time (Source) Location / / Volume Laterality 06/07/2014 4:56 PM 4 5:11 CDT PM CDT Jaxon DEAN - DAVID POCT Performing Organization Address City/[facility]/ZIP Code Phon e Number FV POINT OF CARE TEST, GLUCOSE POINT OF CARE TEST, GLUCOSE (ABNORMAL) Glucose by meter (06/07/2014 11:53 AM CDT) P athologist Signature Glucose 112 (H) 60 - 99 POINT OF CARE mg/dL TEST, GLUCOSE Specimen Anatomical Collection Method Collection Time Receive d Time (Source) Location / / Volume Laterality 06/07/2014 11:53 06/07/2014 AM CDT 12:16 PM CDT Jaxon DEAN - DAVID POCT Performing Organization Address City/[facility]/ZIP Code Phon e Number FV POINT OF CARE TEST, GLUCOSE POINT OF CARE TEST, GLUCOSE (ABNORMAL) Glucose by meter (06/07/2014 8:08 AM CDT) P athologist Signature Glucose 121 (H) 60 - 99 POINT OF CARE mg/dL TEST, GLUCOSE Specimen Anatomical Collection Method Collection Time Receive d Time (Source) Location / / Volume Laterality 06/07/2014 8:08 AM 4 8:16 CDT AM CDT Jaxon DEAN - DAVID POCT Performing Organization Address City/[facility]/ZIP Code Phon e Number FV POINT OF CARE TEST, GLUCOSE POINT OF CARE TEST, GLUCOSE (ABNORMAL) INR (06/07/2014 7:41 AM CDT) P athologist Signature INR 1.34 (H) 0.86 - 1.14 [facility] Specimen Anatomical Collection Method Collection Time Receive d Time (Source) Location / / Volume Laterality Blood specimen 06/07/2014 7:41 AM 014 7:53 (specimen) CDT AM CDT Rand Benedict MD LAB - BLOOD ORDERABLES Performing Organization Address City/[facility]/ZIP Code Phon e Number M [facility] [address] [place] [address] [facility] (ABNORMAL) CBC with platelets (06/07/2014 7:41 AM CDT) Analysis Performed At Patho logist Time Signature WBC 3.8 (L) 4.0 - 11.0 [place] 10e9/L [facility] RBC Count 3.25 (L) 4.4 - 5.9 [place] 10e12/L [facility] Hemoglobin 8.2 (L) 13.3 - [place] 17.7 g/dL [facility] Hematocrit 28.3 (L) 40.0 - [place] 53.0 % [facility] MCV 87 78 - 100 [place] fl [facility] MCH 25.2 (L) 26.5 - [place] 33.0 pg [facility] MCHC 29.0 (L) 31.5 - [place] 36.5 g/dL [facility] RDW 17.3 (H) 10.0 - [place] 15.0 % [facility] Platelet Count 133 (L) 150 - 450 [place] 10e9/L [facility] Specimen Anatomical Collection Method Collection Time Receive d Time (Source) Location / / Volume Laterality Blood specimen 06/07/2014 7:41 AM 014 7:53 (specimen) CDT AM CDT Chi Brunson MD LAB - BLOOD ORDERABLES Performing Organization Address City/[facility]/ZIP Code Phon e Number [facility] [address] [phone] [facility] Potassium (06/07/2014 7:41 AM CDT) P athologist Signature Potassium 4.8 3.4 - 5.3 [place] mmol/L [facility] Specimen Anatomical Collection Method Collection Time Receive d Time (Source) Location / / Volume Laterality Blood specimen 06/07/2014 7:41 AM 014 7:53 (specimen) CDT AM CDT Chi Brunson MD LAB - BLOOD ORDERABLES Performing Organization Address City/[facility]/ZIP Code Phon e Number [facility] [address] [place] [address] [facility] (ABNORMAL) Glucose by meter (06/07/2014 7:21 AM CDT) P athologist Signature Glucose 118 (H) 60 - 99 POINT OF CARE mg/dL TEST, GLUCOSE Specimen Anatomical Collection Method Collection Time Receive d Time (Source) Location / / Volume Laterality 06/07/2014 7:21 AM 4 7:26 CDT AM CDT Jaxon Buenrostro MD LAB - BEAKER POCT Performing Organization Address City/State/ZIP Code Phon e Number FV POINT OF CARE TEST, GLUCOSE POINT OF CARE TEST, GLUCOSE (ABNORMAL) Glucose by meter (06/07/2014 2:21 AM CDT) P athologist Signature Glucose 108 (H) 60 - 99 POINT OF CARE mg/dL TEST, GLUCOSE Specimen Anatomical Collection Method Collection Time Receive d Time (Source) Location / / Volume Laterality 06/07/2014 2:21 AM 4 2:25 CDT AM CDT Jaxon Buenrostro MD LAB - DAVID POCT Performing Organization Address City/[facility]/ZIP Code Phon e Number FV POINT OF CARE TEST, GLUCOSE POINT OF CARE TEST, GLUCOSE (ABNORMAL) Glucose by meter (06/06/2014 10:26 PM CDT) P athologist Signature Glucose 108 (H) 60 - 99 POINT OF CARE mg/dL TEST, GLUCOSE Specimen Anatomical Collection Method Collection Time Receive d Time (Source) Location / / Volume Laterality 06/06/2014 10:26 06/08/2014 PM CDT 12:11 AM CDT Jaxon DEAN - DAVID POCT Performing Organization Address City/[facility] Code Phon e Number FV POINT OF CARE TEST, GLUCOSE POINT OF CARE TEST, GLUCOSE (ABNORMAL) Glucose by meter (06/06/2014 7:59 PM CDT) P athologist Signature Glucose 151 (H) 60 - 99 POINT OF CARE mg/dL TEST, GLUCOSE Specimen Anatomical Collection Method Collection Time Receive d Time (Source) Location / / Volume Laterality 06/06/2014 7:59 PM 4 8:00 CDT PM CDT Jaxon DEAN - DAVID POCT Performing Organization Address City/[facility]/ZIP Code Phon e Number FV POINT OF CARE TEST, GLUCOSE POINT OF CARE TEST, GLUCOSE (ABNORMAL) Glucose by meter (06/06/2014 3:50 PM CDT) P athologist Signature Glucose 151 (H) 60 - 99 POINT OF CARE mg/dL TEST, GLUCOSE Specimen Anatomical Collection Method Collection Time Receive d Time (Source) Location / / Volume Laterality 06/06/2014 3:50 PM 4 CDT 12:11 AM CDT Jaxon Preet Omlie MD LAB - BEAKER POCT Performing Organization Address City/State/ZIP Code Phon e Number FV POINT OF CARE TEST, GLUCOSE POINT OF CARE TEST, GLUCOSE Glucose by meter (06/06/2014 1:26 PM CDT) athologist Signature Glucose 93 60 - 99 POINT OF CARE mg/dL TEST, GLUCOSE Specimen Anatomical Collection Method Collection Time Receive d Time (Source) Location / / Volume Laterality 06/06/2014 1:26 PM 4 1:30 CDT PM CDT Jaxon Buenrostro MD LAB - BEXIANG POCT Performing Organization Address City/State/[facility] Code Phon e Number FV POINT OF CARE TEST, GLUCOSE POINT OF CARE TEST, GLUCOSE (ABNORMAL) Basic metabolic panel (06/06/2014 8:30 AM CDT) athologist Signature Sodium 129 (L) 133 - 144 [place] mmol/L [facility] Potassium 4.8 3.4 - 5.3 [place] mmol/L [facility] Chloride 93 (L) 94 - 109 [place] mmol/L [facility] Carbon Dioxide 25 20 - 32 [place] mmol/L [facility] Anion Gap 11 6 - 17 [place] mmol/L [facility] Glucose 93 70 - 99 [place] mg/dL [facility] Comment: Effective 05/08/2014, the reference range for this assay has changed to reflect new instrumentation/methodology. Urea Nitrogen 59 (H) 7 - 30 mg/dL [facility] Comment: Effective 05/08/2014, the reference range for this assay has changed to reflect new instrumentation/methodology. Creatinine 8.94 (H) 0.66 - 1.25 mg/dL [facility] GFR Estimate 6 (L) >60 mL/min/1.7m2 [facility] Comment: Non GFR Calc GFR Estimate If Black 8 (L) >60 mL/min/1.7m2 [facility] Comment: GFR Calc Calcium 8.1 (L) 8.5 - 10.1 mg/dL [facility] Comment: Effective 05/08/2014, the reference range for this assay has changed to reflect new instrumentation/methodology. Specimen Anatomical Collection Method Collection Time Receive d Time (Source) Location / / Volume Laterality Blood specimen 06/06/2014 8:30 AM 014 9:05 (specimen) CDT AM CDT Chi Brunson MD LAB - BLOOD ORDERABLES Performing Organization Address City/State/ZIP Code Phon e Number M [facility] [address] [place] [address] [facility] (ABNORMAL) INR (06/06/2014 8:30 AM CDT) athologist Signature INR 1.43 (H) 0.86 - 1.14 [facility] Specimen Anatomical Collection Method Collection Time Receive d Time (Source) Location / / Volume Laterality Blood specimen 06/06/2014 8:30 AM 014 9:04 (specimen) CDT AM CDT Rand Benedict MD LAB - BLOOD ORDERABLES Performing Organization Address City/State/ZIP Code Phon e Number M [facility] [address] [id number] [facility] Hemoglobin A1c (06/06/2014 8:30 AM CDT) athologist Signature Hemoglobin A1C 5.1 4.3 - 6.0 [facility] Specimen Anatomical Collection Method Collection Time Receive d Time (Source) Location / / Volume Laterality Blood specimen 06/06/2014 8:30 AM 014 9:04 (specimen) CDT AM CDT Rand Benedict MD LAB - BLOOD ORDERABLES Performing Organization Address City/State/ZIP Code Phon e Number M [facility] [address] [address] [facility] Vancomycin level (06/06/2014 8:30 AM CDT) P athologist Signature Vancomycin 17.9 mg/L [facility] Comment: Traditional Dosing therapeutic Range: ?Trough 8-20 mg/L ?Peak 20-50 mg/L Specimen Anatomical Collection Method Collection Time Receive d Time (Source) Location / / Volume Laterality Blood specimen 06/06/2014 8:30 AM 014 9:04 (specimen) CDT AM CDT Viridiana Cristiano [facility] LAB - BLOOD ORDERABLES Performing Organization Address City/[facility]/ZIP [facility] [place] e Number M [facility] [address] [place] [address] [phone] [facility] Glucose by meter (06/06/2014 6:56 AM CDT) P athologist Signature Glucose 84 60 - 99 POINT OF CARE mg/dL TEST, GLUCOSE Specimen Anatomical Collection Method Collection Time Receive d Time (Source) Location / / Volume Laterality 06/06/2014 6:56 AM 4 7:01 CDT AM CDT Jaxon DEAN - DAVID POCT Performing Organization Address City/[facility] Phon e Number FV POINT OF CARE TEST, GLUCOSE POINT OF CARE TEST, GLUCOSE (ABNORMAL) Glucose by meter (06/06/2014 3:06 AM CDT) P athologist Signature Glucose 109 (H) 60 - 99 POINT OF CARE mg/dL TEST, GLUCOSE Specimen Anatomical Collection Method Collection Time Receive d Time (Source) Location / / Volume Laterality 06/06/2014 3:06 AM 4 3:25 CDT AM CDT Jaxon DEAN - DAVID POCT Performing Organization Address City/[facility]/ZIP Code Phon e Number FV POINT OF CARE TEST, GLUCOSE POINT OF CARE TEST, GLUCOSE (ABNORMAL) Glucose by meter (06/05/2014 11:24 PM CDT) P athologist Signature Glucose 143 (H) 60 - 99 POINT OF CARE mg/dL TEST, GLUCOSE Specimen Anatomical Collection Method Collection Time Receive d Time (Source) Location / / Volume Laterality 06/05/2014 11:24 06/05/2014 PM CDT 11:30 PM CDT Jaxon HERNANDEZ POCT Performing Organization Address City/[facility] Phon e Number FV POINT OF CARE TEST, GLUCOSE POINT OF CARE TEST, GLUCOSE (ABNORMAL) Glucose by meter (06/05/2014 10:00 PM CDT) P athologist Signature Glucose 118 (H) 60 - 99 POINT OF CARE mg/dL TEST, GLUCOSE Specimen Anatomical Collection Method Collection Time Receive d Time (Source) Location / / Volume Laterality 06/05/2014 10:00 06/06/2014 7:05 PM CDT AM CDT Jaxon Buenrostro MD LAB - BEXIANG POCT Performing Organization Address City/[facility] Code Phon e Number FV POINT OF CARE TEST, GLUCOSE POINT OF CARE TEST, GLUCOSE (ABNORMAL) Glucose by meter (06/05/2014 5:09 PM CDT) P athologist Signature Glucose 113 (H) 60 - 99 POINT OF CARE mg/dL TEST, GLUCOSE Specimen Anatomical Collection Method Collection Time Receive d Time (Source) Location / / Volume Laterality 06/05/2014 5:09 PM 4 5:15 CDT PM CDT Jaxon Buenrostro MD LAB - DAVID POCT Performing Organization Address City/[facility] Phon e Number FV POINT OF CARE TEST, GLUCOSE POINT OF CARE TEST, GLUCOSE (ABNORMAL) Glucose by meter (06/05/2014 11:51 AM CDT) P athologist Signature Glucose 121 (H) 60 - 99 POINT OF CARE mg/dL TEST, GLUCOSE Specimen Anatomical Collection Method Collection Time Receive d Time (Source) Location / / Volume Laterality 06/05/2014 11:51 06/05/2014 AM CDT 11:55 AM CDT Jaxon Buenrostro MD LAB - BEXIANG POCT Performing Organization Address City/[facility] Phon e Number FV POINT OF CARE TEST, GLUCOSE POINT OF CARE TEST, GLUCOSE (ABNORMAL) Glucose by meter (06/05/2014 7:43 AM CDT) P athologist Signature Glucose 134 (H) 60 - 99 POINT OF CARE mg/dL TEST, GLUCOSE Specimen Anatomical Collection Method Collection Time Receive d Time (Source) Location / / Volume Laterality 06/05/2014 7:43 AM 4 7:56 CDT AM CDT Jaxon Buenrostro MD LAB - BEAKER POCT Performing Organization Address City/[facility]/ZIP Code Phon e Number FV POINT OF CARE TEST, GLUCOSE POINT OF CARE TEST, GLUCOSE (ABNORMAL) Glucose (06/05/2014 7:39 AM CDT) athologist Signature Glucose 106 (H) 70 - 99 [place] mg/dL [facility] Comment: Effective 05/08/2014, the reference range for this assay has changed to reflect new instrumentation/methodology. Specimen Anatomical Collection Method Collection Time Receive d Time (Source) Location / / Volume Laterality 06/05/2014 7:39 AM 4 7:45 CDT AM CDT Rand Benedict MD LAB - BLOOD ORDERABLES Performing Organization Address [facility]/ZIP Code Phon e Number M [facility] [address] [place] [address] [facility] LAB (ABNORMAL) INR (06/05/2014 7:39 AM CDT) athologist Signature INR 1.68 (H) 0.86 - 1.14 [facility] Specimen Anatomical Collection Method Collection Time Receive d Time (Source) Location / / Volume Laterality Blood specimen 06/05/2014 7:39 AM 014 7:45 (specimen) CDT AM CDT Rand Benedict MD LAB - BLOOD ORDERABLES Performing Organization Address [facility]/ZIP [facility] [place] e [place] M [facility] [address] [place] [address] [facility] (ABNORMAL) Platelet count (06/05/2014 7:39 AM CDT) athologist Signature Platelet Count 127 (L) 150 - 450 [place] 10e9/L [facility] Specimen Anatomical Collection Method Collection Time Receive d Time (Source) Location / / Volume Laterality Blood specimen 06/05/2014 7:39 AM 014 7:45 (specimen) CDT AM CDT Rand Benedict MD LAB - BLOOD ORDERABLES Performing Organization Address City/State/ZIP Code Phon e Number M [facility] [address] [place] [address] [facility] Potassium (06/05/2014 7:39 AM CDT) athologist Signature Potassium 4.3 3.4 - 5.3 [place] mmol/L [facility] Specimen Anatomical Collection Method Collection Time Receive d Time (Source) Location / / Volume Laterality Blood specimen 06/05/2014 7:39 AM 014 7:45 (specimen) CDT AM CDT Rand Benedict MD LAB - BLOOD ORDERABLES Performing Organization Address City/State/ZIP Code Phon e Number M [facility] [address] [place] [address] [facility] (ABNORMAL) Platelet count (06/04/2014 8:12 PM CDT) athologist Signature Platelet Count 123 (L) 150 - 450 [place] 10e9/L [facility] Specimen Anatomical Collection Method Collection Time Receive d Time (Source) Location / / Volume Laterality Blood specimen 06/04/2014 8:12 PM 014 8:15 (specimen) CDT PM CDT Rand Benedict MD LAB - BLOOD ORDERABLES Performing Organization Address City/State/ZIP Code Phon e Number M [facility] [address] [place] [address] [facility] Glucose by meter (06/04/2014 4:51 PM CDT) athologist Signature Glucose 74 60 - 99 POINT OF CARE mg/dL TEST, GLUCOSE Specimen Anatomical Collection Method Collection Time Receive d Time (Source) Location / / Volume Laterality 06/04/2014 4:51 PM 4 4:55 CDT PM CDT Jaxon Buenrostro MD LAB - BEAKER POCT Performing Organization Address City/State/ZIP Code Phon e Number FV POINT OF CARE TEST, GLUCOSE POINT OF CARE TEST, GLUCOSE (ABNORMAL) Wound culture (06/04/2014 3:35 PM CDT) Component Value Ref Test Analysis Performed At [facility] Method Time Signature Specimen Wound Left Thigh [facility] Description MICROBIOLOGY Special Specimen [place] Requests collected in [facility] Culture Micro Moderate growth [facility] Staphylococcus MICROBIOLOGY aureus (A) Micro Report FINAL 06/07/2014 [facility] Status MICROBIOLOGY Organism: Moderate growth [facility] Staphylococcus MICROBIOLOGY aureus Specimen Anatomical Collection Method Collection Time Receive d Time (Source) Location / / Volume Laterality 06/04/2014 3:35 PM 4 3:57 CDT PM CDT Organism Antibiotic Method Susceptibility Moderate growth Ciprofloxacin <=0.5 Susceptibl e ug/mL staphylococcus aureus (jesus) Moderate growth Clindamycin <=0.25 Susceptib le ug/mL staphylococcus aureus (jesus) Moderate growth Erythromycin <=0.25 Susceptib le ug/mL staphylococcus aureus (jesus) Moderate growth Gentamicin <=0.5 Susceptibl e ug/mL staphylococcus aureus (jesus) Moderate growth Levofloxacin 0.25 Susceptible ug/mL staphylococcus aureus (jesus) Moderate growth Oxacillin 0.5 Susceptible ug/mL staphylococcus aureus (jesus) Moderate growth Penicillin >.5 Resistant ug /mL staphylococcus aureus (jesus) Moderate growth Tetracycline <=1 Susceptible ug/mL staphylococcus aureus (jesus) Moderate growth Trimethoprim/Sulfamethoxaz >=16/ 304 Resistant ug/mL staphylococcus aureus (jesus) ole Moderate growth Vancomycin 1 Susceptible ug /mL staphylococcus aureus (jesus) Jaxon Buenrostro MD LAB - MICRO GENERAL ORDERABL ES Performing Organization Address City/State/ZIP Code Phon e Number [address] [facility] MICROBIOLOGY [facility] Gram stain (06/04/2014 3:35 PM CDT) Component Value Ref Test Analysis Performed At [facility] Method Time Signature Specimen Wound Left [facility] Description Thigh MICROBIOLOGY Gram Stain No organisms seen [facility] Few PMNs seen MICROBIOLOGY Gram stain review consistent with reported results. Called to [facility] 1615 [address] Micro Report FINAL [facility] Status 06/04/2014 MICROBIOLOGY Specimen Anatomical Collection Method Collection Time Receive d Time (Source) Location / / Volume Laterality 06/04/2014 3:35 PM 4 3:57 CDT PM CDT Jaxon Buenrostro MD LAB - MICRO GENERAL ORDERABL ES Performing Organization Address City/State/ZIP Code Phon e Number [facility] [address] [place] [address] [facility] MICROBIOLOGY Anaerobic bacterial culture (06/04/2014 3:35 PM CDT) Component Value Ref Test Analysis Performed At [facility] Range Method Time Signature Specimen Wound Left [facility] Description Thigh MICROBIOLOGY Special Received in [facility] Requests anaerobic MICROBIOLOGY tubes. Culture Micro No anaerobes [facility] MICROBIOLOGY Micro Report FINAL [facility] Status 06/11/2014 MICROBIOLOGY Specimen Anatomical Collection Method Collection Time Receive d Time (Source) Location / / Volume Laterality 06/04/2014 3:35 PM 4 3:57 CDT PM CDT Jaxon Buenrostro MD LAB - MICRO GENERAL ORDERABL ES Performing Organization Address City/[facility]/ZIP Code Phon e Number [facility] [address] [place] [address] [facility] MICROBIOLOGY Glucose by meter (06/04/2014 3:21 PM CDT) P athologist Signature Glucose 78 60 - 99 POINT OF CARE mg/dL TEST, GLUCOSE Specimen Anatomical Collection Method Collection Time Receive d Time (Source) Location / / Volume Laterality 06/04/2014 3:21 PM 4 3:35 CDT PM CDT Jaxon DEAN - BEAKER POCT Performing Organization Address City/State/ZIP Code Phon e Number FV POINT OF CARE TEST, GLUCOSE POINT OF CARE TEST, GLUCOSE Glucose by meter (06/04/2014 1:49 PM CDT) P athologist Signature Glucose 78 60 - 99 POINT OF CARE mg/dL TEST, GLUCOSE Specimen Anatomical Collection Method Collection Time Receive d Time (Source) Location / / Volume Laterality 06/04/2014 1:49 PM 4 1:55 CDT PM CDT Jaxon HERNANDEZ POCT Performing Organization Address City/State/ZIP Code Phon e Number FV POINT OF CARE TEST, GLUCOSE POINT OF CARE TEST, GLUCOSE (ABNORMAL) INR (06/04/2014 1:15 PM CDT) P athologist Signature INR 1.93 (H) 0.86 - 1.14 [facility] Specimen Anatomical Collection Method Collection Time Receive d Time (Source) Location / / Volume Laterality Blood specimen 06/04/2014 1:15 PM 014 1:23 (specimen) CDT PM CDT Jaxon Buenrostro MD LAB - BLOOD ORDERABLES Performing Organization Address City/State/ZIP Code Phon e Number M [facility] [address] [place] [address] [phone] [facility] Potassium (06/04/2014 1:15 PM CDT) athologist Signature Potassium 3.5 3.4 - 5.3 [place] mmol/L [facility] Specimen Anatomical Collection Method Collection Time Receive d Time (Source) Location / / Volume Laterality Blood specimen 06/04/2014 1:15 PM 014 1:23 (specimen) CDT PM CDT Jaxon Buenrostro MD LAB - BLOOD ORDERABLES Performing Organization Address City/State/ZIP Code Phon e Number Edna [facility] [address] [place] [address] [phone] [facility] documented in this encounter Visit Diagnoses Diagnosis Essential hypertension, benign - Primary Fistula Unspecified local infection of skin and subcutaneous tissue Clotted renal dialysis AV graft, initial encounter (H) ESRD (end stage renal disease) (H) End stage renal disease documented in this encounter Administered Medications Inactive Administered Medications - up to 3 most recent administrations Medication Order MAR Action Action Date Dose Rate Site albuterol nebulizer solution (UD) Given 06/09/2014 11:52 PM CDT 2.5 mg 2.5 mg 2.5 mg, Nebulization, ONCE, On Tue06/09/14 at 2245, For 1 dose B rklcazi-I-jybvv acid (NEPHROCAPS) capsule 1 Given 10:00 PM CDT 1 mg mg 1 mg (1 capsule), Oral, AT BEDTIME, First dose on Tu06/04/14 at 2200 Given 06/18/2014 8:45 PM CDT 1 mg Given 06/17/2014 9:38 PM CDT 1 mg barium sulfate (VARIBAR THIN) oral suspension Given 06/17/20 14 11:15 AM CDT 6 g 40% 6 g 6 g (15 mL), Oral, ONCE, On Tue06/17/14 at 1115, For 1 dose barium sulfate (VARIBAR) pudding/paste 1 0 mL Given 06/17/2014 11:15 AM CDT 10 mLs 10 mL, Oral, ONCE, On Tue06/17/14 at 1115, For 1 dose barium sulfate 40% (VARIBAR HONEY or NECTAR) Given 05/2014 11:15 AM CDT 5 mLs oral suspension Oral, ONCE, On Tue06/17/14 at 1115, For 1 dose barium sulfate 40% (VARIBAR HONEY or NECTAR) Given 05/2014 11:09 AM CDT 5 mLs oral suspension Oral, ONCE, On Tue06/17/14 at 1115, For 1 dose bisacodyl (DULCOLAX) EC tablet 10 mg Given 06/18/2014 6:15 PM CDT 10 mg 10 mg, Oral, USER SPECIFIED (Once per day on Tue), First dose on Tue06/06/14 at 1300, DO NOT CRUSH. Give after dialysis on Dialysis days Given 06/15/2014 5:41 PM CDT 10 mg Given 06/13/2014 2:58 PM CDT 10 mg calcium acetate (PHOSLO) capsule Given 06/15/2014 8:17 AM CDT 2, 001 mg 1,334-2,001 mg 1,334-2,001 mg, Oral, 3 TIMES DAILY WITH MEALS, First dose on Tue06/04/14 at 1800, Best if given with meals. Take with meals. Given 06/14/2014 5:32 PM CDT 2,001 mg Given 06/14/2014 12:54 PM CDT 2,001 mg calcium acetate (PHOSLO) capsule 667 mg Given 06/20/2014 1:00 PM CDT 667 mg 667 mg, Oral, 3 TIMES DAILY WITH MEALS, First dose (after last modification) on Tue06/15/14 at 1800, Best if given with meals. Take with meals. Given 06/19/2014 5:50 PM CDT 667 mg Given 06/19/2014 12:03 PM CDT 667 mg cholecalciferol (vitamin D) tablet 1,000 Given 014 1:01 PM CDT 1,000 Units Units 1,000 Units, Oral, DAILY, First dose on Tue06/04/14 at 1800 Given 06/19/2014 8:12 AM CDT 1,000 Units Given 06/17/2014 8:06 AM CDT 1,000 Units dextrose 50 % solution 50 mL Given 06/09/2014 11:04 PM CDT 50 mLs 50 mL, Intravenous, ONCE, On 06/09/14 at 2245, For 1 dose epoetin mauricio (EPOGEN,PROCRIT) [id number] Given 06/11/2014 10:14 AM CD T 11,000 Units UNIT/ML injection Starting on Tu06/11/14 at 0958, For 1 dose, Shirley Hampton: cabinet override epoetin mauricio (EPOGEN,PROCRIT) [id number] Given 06/15/2014 3:13 PM CDT 10,000 Units UNIT/ML injection Starting on 06/15/14 at 1509, For 1 dose, Angie Gotti: cabinet override epoetin mauricio (EPOGEN,PROCRIT) 11,000 Given 06/06/2014 10:17 AM CDT 11,000 Units Units injection 11,000 Units, Intravenous, SEE ADMIN INSTRUCTIONS, Starting on Padmaja 06/06/14 at 0811, Given during each dialysis (per request) 11742 units = [id number] unit vials + 3000 unit vial, Dialysis, Hemoglobin reviewed? has reviewed/ordered hemoglobin within the required timeline epoetin mauricio (EPOGEN,PROCRIT) 11,000 Given 06/08/2014 9:17 AM CD T 11,000 Units Units injection 11,000 Units, Intravenous, SEE ADMIN INSTRUCTIONS, Starting on 06/08/14 at 0707, Given during each dialysis (per request) 72561 units = [id number] unit vials + 3000 unit vial, Dialysis, Hemoglobin reviewed? has reviewed/ordered hemoglobin within the required timeline epoetin mauricio (EPOGEN,PROCRIT) 11,000 Given 06/13/2014 10:30 AM CDT 11,000 Units Units injection 11,000 Units, Intravenous, ONCE, On Padmaja 06/13/14 at 0815, For 1 dose, Given during each dialysis (per request) 56232 units = [id number] unit vials + 3000 unit vial, Dialysis, Hemoglobin reviewed? has reviewed/ordered hemoglobin within the required timeline epoetin mauricio (EPOGEN,PROCRIT) 11,000 Given 06/15/2014 3:14 PM CD T 11,000 Units Units injection 11,000 Units, Intravenous, ONCE, On 06/15/14 at 1115, For 1 dose, Given during each dialysis (per request) 22408 units = [id number] unit vials + 3000 unit vial, Dialysis, Hemoglobin reviewed? has reviewed/ordered hemoglobin within the required timeline epoetin mauricio (EPOGEN,PROCRIT) 2000 Given 06/15/2014 3:15 PM CDT 1,000 Units UNIT/ML injection Starting on 06/15/14 at 1509, For 1 dose, Angie Gotti: cabinet override epoetin mauricio (EPOGEN,PROCRIT) 4000 UNIT/ ML injection Starting on Tue06/19/14 at 1500, For 1 dose, Carlos Del Rio: cabinet override epoetin mauricio (EPOGEN,PROCRIT) injection Given 06/19/20 2:59 PM CDT 8,000 Units 8,000 Units 8,000 Units, Intravenous, ONCE, On Tue06/18/14 at 1015, For 1 dose, Given during each dialysis (per request), Dialysis, Hemoglobin reviewed? has reviewed/ordered hemoglobin within the required timeline guaiFENesin-dextromethorphan (ROBITUSSIN DM) Given 4 8:56 PM CDT 5 mLs 100-10 MG/5ML syrup 5 mL 5 mL, Oral, EVERY 4 HOURS PRN, cough, Starting on Tue06/13/14 at 1001 Given 06/17/2014 1:41 AM CDT 5 mLs Given 06/16/2014 11:26 AM CDT 5 mLs heparin (porcine) injection 500 Units Given 06/20/2014 8:30 AM CDT 500 Units 500 Units, Hemodialysis Machine, ONCE IN DIALYSIS/CRRT, On Padmaja 06/20/14 at 0730, For 1 dose, LOADING DOSE, Dialysis heparin 10,000 New Syringe/Cartridge 06/20/2014 8:30 AM 500 Units/hr 0.5 mL/hr units/10 mL drip CDT (DIALYSIS USE) 500 Units/hr (0.5 mL/hr), Hemodialysis Machine, CONTINUOUS, Starting on Tue06/20/14 at 0730, DURING DIALYSIS TREATMENT, Dialysis heparin sodium PF Given 06/12/2014 8:37 AM CDT 5,000 Units Abdominal Tissue injection 5,000 Units 5,000 Units, Subcutaneous, EVERY 8 HOURS, First dose on Tue06/05/14 at 1015, Check to make sure start date/time is 12-24 hours post op unless documented complication. Continue until discharge to home. HOLD if platelet count falls below 50% of baseline or <100,000/??L and notify , Post-procedure Given 06/11/2014 4:26 PM CDT 5,000 Units Given 06/11/2014 12:10 AM CDT 5,000 Units heparin sodium PF injection 5,000 Units Given 06/20/2014 1:02 PM CDT 5,000 Units 5,000 Units, Subcutaneous, EVERY 8 HOURS, First dose on Tue06/15/14 at 1445, D/c when INR ~ 2.5. High concentration HEParin. Not for line flush or cath care. Given 06/20/2014 12:00 AM CDT 5,000 Units Given 06/19/2014 5:50 PM CDT 5,000 Units hydrALAZINE (APRESOLINE) injection 10 mg Given 06/18/2014 2:09 PM CDT 10 mg 10 mg, Intravenous, EVERY 4 HOURS PRN, high blood pressure, Starting on Tue06/08/14 at 1330, For systolic BP greater than 180 Given 06/18/2014 4:53 AM CDT 10 mg Given 06/15/2014 5:50 AM CDT 10 mg HYDROcodone-acetaminophen (NORCO) 5-325 MG Given 06/15 7:30 PM CDT 1 tablet per tablet 1-2 tablet 1-2 tablet, Oral, EVERY 4 HOURS PRN, moderate to severe pain, Starting on Tue06/04/14 at 1755, Hold while on BANKRUPTCY ATTORNEY or with regular IV opioid dosing. Maximum acetaminophen dose from all sources= 75 mg/kg/day not to exceed 4 grams, Post-procedure Given 06/12/2014 9:20 PM CDT 1 tablet Given 06/12/2014 4:52 PM CDT 1 tablet insulin (regular) (HumuLIN R,NovoLIN R) Given 06/09/2014 11:04 P M CDT 5 Units injection dilution 5 Units 5 Units, Intravenous, ONCE, On 8/31/14 at 2245, For 1 dose, May administer by rapid IV push insulin Aspart (NovoLOG) inj (RAPID ACTI NG) Given 06/10/2014 5:13 PM CDT 1 Units 1-3 Units, Subcutaneous, 3 TIMES DAILY BEFORE MEALS, First dose on Tue06/05/14 at 0800, Correction Scale - LOW INSULIN RESISTANCE DOSING Do Not give Correction Insulin if Pre-Meal BG < 140. For Pre-Meal BG 140 - 239 give 1 unit. For Pre-Meal BG 240 - 339 give 2 units. For Pre-Meal BG > 340 give 3 units. To be given with prandial insulin, and based on pre-meal blood glucose. Notify MD if glucose > or = 350 mg/dL after administration of correction dose. If given at mealtime, must be administered 5 min before meal or immediately after. Given 06/06/2014 8:14 PM CDT 1 Units Given 06/06/2014 3:59 PM CDT 1 Units lisinopril (PRINIVIL,ZESTRIL) tablet 20 mg Given 06/12/2014 8:35 AM CDT 20 mg 20 mg, Oral, DAILY, First dose on Tue06/09/14 at 0915 Given 06/11/2014 1:57 PM CDT 20 mg Given 06/10/2014 8:07 AM CDT 20 mg losartan (COZAAR) tablet 100 mg Given 06/20/2014 1:01 PM CDT 100 mg 100 mg, Oral, DAILY, First dose on Tue06/13/14 at 1000 Given 06/19/2014 8:13 AM CDT 100 mg Given 06/18/2014 9:50 AM CDT 100 mg metoprolol (LOPRESSOR) tablet 100 mg Given 06/07/2014 8:50 PM CDT 100 mg 100 mg, Oral, USER SPECIFIED (2 times per day on Sun Tue), First dose on Tue06/05/14 at 0900, For Adults, Hold if HR < 60. BID On Tuesday - Tue - Tue - Tuesday Given 06/07/2014 8:31 AM CDT 100 mg Given 06/05/2014 10:17 PM CDT 100 mg metoprolol (LOPRESSOR) tablet 100 mg Given 06/10/2014 8:07 AM CDT 100 mg 100 mg, Oral, DAILY, First dose on 06/08/14 at 1345, For Adults, Hold if HR < 60. Given 06/09/2014 8:36 AM CDT 100 mg Given 06/08/2014 2:14 PM CDT 100 mg metoprolol (LOPRESSOR) tablet 100 mg Given 06/20/2014 1:09 PM CDT 100 mg 100 mg, Oral, 2 TIMES DAILY, First dose on Tue06/11/14 at 0945, Hold for SBP < 100 or HR < 60 Given 06/19/2014 8:26 PM CDT 100 mg Given 06/19/2014 8:13 AM CDT 100 mg minoxidil (LONITEN) tablet 2.5 mg Given 06/12/2014 5:24 PM CDT 2.5 mg 2.5 mg, Oral, DAILY, First dose on Tue06/12/14 at 1515, Hold for SBP <140 minoxidil (LONITEN) tablet 2.5 mg Given 06/15/2014 8:24 AM CDT 2.5 mg 2.5 mg, Oral, 2 TIMES DAILY, First dose (after last modification) on Tue06/13/14 at 2100, Hold for SBP <140 Given 06/14/2014 9:42 PM CDT 2.5 mg Given 06/14/2014 8:15 AM CDT 2.5 mg minoxidil (LONITEN) tablet 5 mg Given 06/20/2014 1:00 PM CDT 5 mg 5 mg, Oral, 2 TIMES DAILY, First dose (after last modification) on 06/15/14 at 2100, Hold for SBP <140 Given 06/19/2014 8:26 PM CDT 5 mg Given 06/19/2014 8:13 AM CDT 5 mg nafcillin IV 1 g vial to attach to IVPB Given 06/20/2014 1:04 PM CDT 1 g Routine, 1 g, Intravenous, EVERY 6 HOURS, First dose on 06/08/14 at 0845, Indications: Skin and Soft Tissue Infection, 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 Given 06/20/2014 5:42 AM CDT 1 g Given 06/19/2014 11:47 PM CDT 1 g phenol-menthol (CEPASTAT) 14.5 MG lozeng e Starting on Tue06/10/14 at 2137, For 1 dose, Edgar Shipley: cabinet override phenol-menthol (CEPASTAT) lozenge 1-2 Given 06/20/2014 5:47 AM C DT 2 lozenges lozenge 1-2 lozenge, Buccal, EVERY 1 HOUR PRN, other, dry/sore throat without fever , Starting on Tue06/10/14 at 2131 Given 06/18/2014 8:45 PM CDT 2 lozenges Given 06/18/2014 12:17 AM CDT 2 lozenges simvastatin (ZOCOR) tablet 40 mg Given 06/19/2014 10:00 PM CDT 40 mg 40 mg, Oral, AT BEDTIME, First dose on Tue06/04/14 at 2200 Given 06/18/2014 8:45 PM CDT 40 mg Given 06/17/2014 9:37 PM CDT 40 mg sodium bicarbonate 8.4 % injection 50 mE q Given 06/09/2014 11:04 PM CDT 50 mEq 50 mEq, Intravenous, ONCE, On Tue06/09/14 at 2245, For 1 dose sodium chloride (PF) 0.9% PF flush 3 mL Given 06/11/2014 4:24 AM CDT 3 mLs 3 mL, Intravenous, EVERY 1 HOUR PRN, line flush, post meds or blood draw, Starting on Tue06/04/14 at 1755, for peripheral IV line flush post IV meds, Post-procedure Given 06/11/2014 1:36 AM CDT 3 mLs sodium chloride (PF) 0.9% PF flush 3 mL Given 06/20/2014 1:06 PM CDT 3 mLs 3 mL, Intravenous, EVERY 8 HOURS, First dose on Tue06/04/14 at 1800, to lock peripheral IV dormant line. Also Ordered Q1H PRN, Post-procedure Given 06/20/2014 5:44 AM CDT 3 mLs Given 06/19/2014 11:48 PM CDT 3 mLs sodium chloride (PF) 0.9% PF flush 3 mL Given 06/11/2014 12:10 AM CDT 3 mLs 3 mL, Intravenous, EVERY 1 HOUR PRN, line flush, to lock peripheral IV dormant line., Starting on Tue06/04/14 at 1755, Also Ordered EVERY 8 HOURS., Post-procedure Given 06/06/2014 3:58 PM CDT 3 mLs sodium chloride 0.9 % BOLUS 250 mL New Bag 06/06/2014 10:06 AM CDT 250 mLs Hemodialysis Machine, 250 mL, ONCE, On Padmaja 06/06/14 at 0815, For 1 dose, For Dialyzer Prime. (In Dialyzer), Dialysis sodium chloride 0.9 % BOLUS 250 mL New Bag 06/08/2014 8:51 AM CDT 250 mLs Hemodialysis Machine, 250 mL, ONCE, On 06/08/14 at 0715, For 1 dose, For Dialyzer Prime. (In Dialyzer), Dialysis sodium chloride 0.9 % BOLUS 250 mL New Bag 06/11/2014 9:15 AM CDT 250 mLs Hemodialysis Machine, 250 mL, ONCE, On 06/11/14 at 0715, For 1 dose, For Dialyzer Prime. (In Dialyzer), Dialysis sodium chloride 0.9 % BOLUS 250 mL New Bag 06/13/2014 9:00 AM CDT 250 mLs Hemodialysis Machine, 250 mL, ONCE, On Padmaja 06/13/14 at 0815, For 1 dose, For Dialyzer Prime. (In Dialyzer), Dialysis sodium chloride 0.9 % BOLUS 250 mL New Bag 06/15/2014 1:05 PM CDT 250 mLs Hemodialysis Machine, 250 mL, ONCE, On 06/15/14 at 1115, For 1 dose, For Dialyzer Prime. (In Dialyzer), Dialysis sodium chloride 0.9 % BOLUS 250 mL New Bag 06/19/2014 1:18 PM CDT 250 mLs Hemodialysis Machine, 250 mL, ONCE, On Tue06/19/14 at 1030, For 1 dose, For Dialyzer Prime. (In Dialyzer), Dialysis sodium chloride 0.9 % BOLUS 250 mL New Bag 06/20/2014 7:00 AM CDT 250 mLs Hemodialysis Machine, 250 mL, ONCE, On Padmaja 06/20/14 at 0730, For 1 dose, For Dialyzer Prime. (In Dialyzer), Dialysis sodium polystyrene (KAYEXALATE) suspension 15 Given 10:01 AM CDT 15 g g 15 g, Oral, ONCE, On 06/09/14 at 0915, For 1 dose, All orders for Kayexalate should include a specified duration of therapy. Open ended orders, without a stop date and time, are prohibited. (per Medication Safety Comm. 04/12) sodium polystyrene (KAYEXALATE) suspensi on 15 g Given 06/09/2014 4:29 PM CDT 15 g 15 g, Oral, ONCE, On Tue06/09/14 at 1545, For 1 dose, All orders for Kayexalate should include a specified duration of therapy. Open ended orders, without a stop date and time, are prohibited. (per Medication Safety Comm. 04/12) sodium polystyrene (KAYEXALATE) suspensi on 15 g Given 06/17/2014 2:02 PM CDT 15 g 15 g, Oral, ONCE, On Tue06/17/14 at 1230, For 1 dose, All orders for Kayexalate should include a specified duration of therapy. Open ended orders, without a stop date and time, are prohibited. (per Medication Safety Comm. 04/12) sodium polystyrene (KAYEXALATE) suspensi on 30 g Given 06/17/2014 9:56 PM CDT 30 g 30 g, Oral, ONCE, On Tue06/17/14 at 2030, For 1 dose, All orders for Kayexalate should include a specified duration of therapy. Open ended orders, without a stop date and time, are prohibited. (per Medication Safety Comm. 04/12) vancomycin (VANCOCIN) 1,750 mg in NaCl New Bag 06/04/2014 6:41 PM CDT 1,750 mg 0.9 % 500 mL IVPB Routine, 1,750 mg, Intravenous, ONCE, On Tue06/04/14 at 1815, For 1 dose, For an adult with peripheral line and dose of 2-2.5 g, infuse over 2 hours. Pharmacist Dose Change per: Vancomycin Policy., Indications: Postoperative Infection vancomycin (VANCOCIN) 250 mg in NaCl 0.9 % New Bag 06/04 9:24 PM CDT 250 mg 100 mL IVPB Routine, 250 mg, Intravenous, ONCE, On Tue06/04/14 at 2030, For 1 dose, For an adult with peripheral line and dose of 2-2.5 g, infuse over 2 hours. To equal 2000 mg tonight., Indications: Postoperative Infection vancomycin 1250 mg in 0.9% NaCl New Bag 06/06/2014 2:11 PM CDT 1,250 mg 166.7 mL/hr 250 mL (premix) Routine, 1,250 mg, Intravenous, ONCE, On Padmaja 06/06/14 at 1330, For 1 dose, For an adult with peripheral line and dose of 2-2.5 g, infuse over 2 hours. Pharmacist Dose per: Vancomycin Policy., Indications: Postoperative Infection warfarin (COUMADIN) tablet 1.5 mg Given 06/10/2014 5:22 PM CDT 1.5 mg 1.5 mg, Oral, ONCE AT 6PM, On Tue06/10/14 at 1800, For 1 dose warfarin (COUMADIN) tablet 2.5 mg Given 06/05/2014 5:42 PM CDT 2.5 mg 2.5 mg, Oral, ONCE AT 6PM, On Tue06/05/14 at 1800, For 1 dose warfarin (COUMADIN) tablet 2.5 mg Given 06/06/2014 5:46 PM CDT 2.5 mg 2.5 mg, Oral, ONCE AT 6PM, On Tue06/06/14 at 1800, For 1 dose, Pharmacist Dose per: Warfarin Dosing Service. warfarin (COUMADIN) tablet 2.5 mg Given 06/09/2014 5:35 PM CDT 2.5 mg 2.5 mg, Oral, ONCE AT 6PM, On Tue06/09/14 at 1800, For 1 dose warfarin (COUMADIN) tablet 2.5 mg Given 06/11/2014 5:11 PM CDT 2.5 mg 2.5 mg, Oral, ONCE AT 6PM, On Tue06/11/14 at 1800, For 1 dose, INR = 2.65 warfarin (COUMADIN) tablet 2.5 mg Given 06/13/2014 5:16 PM CDT 2.5 mg 2.5 mg, Oral, ONCE AT 6PM, On Tue06/13/14 at 1800, For 1 dose warfarin (COUMADIN) tablet 2.5 mg Given 06/18/2014 6:15 PM CDT 2.5 mg 2.5 mg, Oral, ONCE AT 6PM, On Tue06/18/14 at 1800, For 1 dose warfarin (COUMADIN) tablet 2.5 mg Given 06/19/2014 5:50 PM CDT 2.5 mg 2.5 mg, Oral, ONCE AT 6PM, On Tue06/19/14 at 1800, For 1 dose warfarin (COUMADIN) tablet 3 mg Given 06/14/2014 5:32 PM CDT 3 mg 3 mg, Oral, ONCE AT 6PM, On Tue06/14/14 at 1800, For 1 dose, INR = 1.75 warfarin (COUMADIN) tablet 3 mg Given 06/16/2014 5:39 PM CDT 3 mg 3 mg, Oral, ONCE AT 6PM, On Tue06/16/14 at 1800, For 1 dose warfarin (COUMADIN) tablet 4 mg Given 06/15/2014 5:41 PM CDT 4 mg 4 mg, Oral, ONCE AT 6PM, On 06/15/14 at 1800, For 1 dose, Pharmacist Dose per: Warfarin Dosing Service. warfarin (COUMADIN) tablet 4 mg Given 06/17/2014 5:36 PM CDT 4 mg 4 mg, Oral, ONCE AT 6PM, On Tue06/17/14 at 1800, For 1 dose warfarin (COUMADIN) tablet 5 mg Given 06/07/2014 5:46 PM CDT 5 mg 5 mg, Oral, ONCE AT 6PM, On Tue06/07/14 at 1800, For 1 dose, Pharmacist Dose per: Warfarin Dosing Service. warfarin (COUMADIN) tablet 5 mg Given 06/08/2014 5:05 PM CDT 5 mg 5 mg, Oral, ONCE AT 6PM, On 06/08/14 at 1800, For 1 dose documented in this encounter Active and Recently Administered Medications Times are shown in CDT. Scheduled Medication Order 06/18/2014 06/19/2014 06/20/2014 B hysdmop-M-skivu acid (NEPHROCAPS) capsule 1 mg (CANC ELED) 2044 (Given - Provider: Felipa Daugherty RN)2200 (Canceled Entry - Provider: Felipa Daugherty RN) 220 (Given - Provider: Wen Mueller RN) 1 mg (1 capsule), Oral, AT BEDTIME, First dose on Tue06/04/14 at 2200 bisacodyl (DULCOLAX) EC tablet 10 mg (CANCELED) 1814 ( Given - Provider: Tahmina Pantoja RN - Comment: given post-dialysis) 1302 (N ot Given - Provider: Marichuy Bishop RN - Reason: Patient/family refused - Comment: will take at home today) 10 mg, Oral, USER SPECIFIED (Once per da y on Tue Sat), First dose on Tue06/06/14 at 1300, DO NOT CRUSH. Give after dialysis on Dialysis days calcium acetate (PHOSLO) capsule 667 mg (CANCELED) 091 3 (Not Given - Provider: Tahmina Pantoja RN - Reason: NPO)1155 (Not Given - Provider: Tahmina Pantoja RN - Reason: NPO)1815 (Given - Provider: Tahmina Pantoja RN) 0813 (Given - Provider: Marichuy Bishop RN)1203 (Given - Provider: Marichuy Bishop, LINDA)1750 (Given - Provider: Marichuy Bishop, LINDA) 1148 (Not Given - Provider: Marichuy Bishop RN - Reason: Other - Comment: in dialysis)1300 (Given - Provider: Marichuy Bishop RN) 667 mg, Oral, 3 TIMES DAILY WITH MEALS, First dose on Tue06/15/14 at 1800, Best if given with meals. Take with meals. cholecalciferol (vitamin D) tablet 1,000 Units (CANCEL ED) 0913 (Not Given - Provider: Tahmina Pantoja RN - Reason: NPO) 0812 (Given - Provider: Marichuy Bishop RN) 1301 (Given - Provider: Marichuy Bishop RN - Comment: in dialysis) 1,000 Units, Oral, DAILY, First dose on Tue06/04/14 at 1800 epoetin mauricio (EPOGEN,PROCRIT) injection 8,000 Units (C OMPLETED) 1824 (Not Given - Provider: Josue Byrnes RN - Reason: Other - Comment: off run early not able to give. dr. jorge made aware o.k. for today) 1459 (Given - Provider: Stacy Del Rio RN - Comment: given on dialysis today for missed dose 06/19) 8,000 Units, Intravenous, ONCE, Tue at 1015, For 1 dose, Given during each dialysis (per request), Dialysis heparin (porcine) injection 500 Units (COMPLETED) 0830 (Given - Provider: Roberta Marco A Nadir, RN) 500 Units, Hemodialysis Machine, ONCE IN DIALYSIS, Padmaja 06/20/14 at 0730, For 1 dose, LOADING DOSE, Dialysis heparin sodium PF injection 5,000 Units (CANCELED) 010 4 (Given - Provider: Mo Warner RN)0921 (Not Given - Provider: Tahmina Pantoja RN - Reason: Other - Comment: Held for fistulagram)1814 (Given - Provider: Tahmina Pantoja RN) 0107 (Given - Provider: Mo vitale RN)0816 (Given - Provider: Marichuy Bishop, LINDA)1750 (Given - Provider: Marichuy Bishop, LINDA) 0000 (Given - Provider: Mo Warner, LINDA)1302 (Given - Provider: Marichuy Bishop RN - Comment: in dialysis) 5,000 Units, Subcutaneous, EVERY 8 HOURS , First dose on Tue06/15/14 at 1445, D/c when INR ~ 2.5. High concentration HEParin. Not for line flush or cath care. losartan (COZAAR) tablet 100 mg 0950 (Given - Provider: Eve Pantoja RN) 0813 (Given - Provider: Marichuy Bishop RN) 1301 (Given - Provider: Marichuy Bishop RN - Comment: in dialysis) 100 mg, Oral, DAILY, First dose on Tue06/13/14 at 1000 metoprolol (LOPRESSOR) tablet 100 mg (CANCELED) 0950 ( Given - Provider: Tahmina Pantoja RN)2044 (Given - Provider: Felipa Daugherty RN) 0813 (Given - Provider: Marichuy Bishop RN)202 (Given - Provider: Wen Mueller RN) 1309 (Given - Provider: Marichuy Bishop RN - Comment: in dialysis) 100 mg, Oral, 2 TIMES DAILY, First dose on Tue06/11/14 at 0945, Hold for SBP < 100 or HR < 60 minoxidil (LONITEN) tablet 5 mg 0950 (Given - Provider : Tahmina Pantoja RN)2044 (Given - Provider: Felipa Daugherty RN) 0813 (Given - Provider: Marichuy Bishop LINDA)202 (Given - Provider: Wen Mueller, LINDA) 1300 (Given - Provider: Marichuy Bishop, LINDA - Comment: in dialysis) 5 mg, Oral, 2 TIMES DAILY, First dose on 06/15/14 at 2100, Hold for SBP <140 nafcillin IV 1 g vial to attach to IVPB (CANCELED) 001 7 (Given - Provider: Mo Warner RN)0544 (Given - Provider: Mo Warner RN)1209 (Given - Provider: Tahmina Pantoja, RN)1814 (Given - Provider: Tahmina Pantoja, RN) 0014 (Given - Provider: Mo vitale, LINDA)0553 (Given - Provider: Mo Warner RN)1740 (Given - Provider: Marichuy Bishop RN - Comment: in dialysis, just returned now)2347 (Given - Provider: Mo Warner RN) 0542 (Given - Provider: Mo vitale RN)1304 (Given - Provider: Marichuy Bishop, LINDA) 1 g, Intravenous, EVERY 6 HOURS, First d ose on 06/08/14 at 0845, Indications: Skin and Soft Tissue Infection, 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 simvastatin (ZOCOR) tablet 40 mg (CANCELED) 2044 (Give n - Provider: Felipa Daugherty RN)2200 (Canceled Entry - Provider: Felipa Daugherty RN) 2200 (Given - Provider: Wen Mueller, LINDA) 40 mg, Oral, AT BEDTIME, First dose on Tue06/04/14 at 2200 sodium chloride (PF) 0.9% PF flush 3 mL (CANCELED) 054 3 (Given - Provider: Mo Warner RN)1410 (Given - Provider: Laureen Mendiola RN)2050 (Given - Provider: Felipa Daugherty RN)2200 (Canceled Entry - Provider: Felipa Daugherty RN) 0555 (Given - Provider: Mo vitale RN)1742 (Given - Provider: Marichuy Bishop RN)5468 (Given - Provider: Mo Warner, RN) 0544 (Given - Provider: Mo Warner, RN)1306 (Given - Provider: Marichuy Bishop RN) 3 mL, Intravenous, EVERY 8 HOURS, First dose on Tue06/04/14 at 1800, to lock peripheral IV dormant line. Also Ordered Q1H PRN, Post-procedure sodium chloride 0.9 % BOLUS 250 mL (COMPLETED) 1318 (New Bag - Provider: Stacy Del Rio RN - Comment: given as prime on dialysis) Hemodialysis Machine, 250 mL, ONCE, Tue06/19/14 at 1030, For 1 dose, For Dialyzer Prime. (In Dialyzer), Dialysis sodium chloride 0.9 % BOLUS 250 mL (COMPLETED) 0700 (New Bag - Provider: Roberta Schmitz, LINDA) Hemodialysis Machine, 250 mL, ONCE, Tue06/20/14 at 0730, For 1 dose, For Dialyzer Prime. (In Dialyzer), Dialysis warfarin (COUMADIN) tablet 2.5 mg (COMPLETED) 181 (Gi corey - Provider: Tahmina Pantoja, LINDA) 2.5 mg, Oral, ONCE AT 6PM, Tue06/18/14 at 1800, For 1 dose warfarin (COUMADIN) tablet 2.5 mg (COMPLETED) 1750 (Given - Provider: Marichuy Bishop RN) 2.5 mg, Oral, ONCE AT 6PM, Tue06/19/14 at 1800, For 1 dose Continuous Medication Order 06/18/2014 06/19/2014 06/20/2014 heparin 10,000 units/10 mL drip (DIALYSIS USE) (CANCELED) 0830 (New Syringe/Cartridge - Provider: Roberta Schmitz, LINDA) 0.5 mL/hr (500 Units/hr), Hemodialysis M achine, at 0.5 mL/hr, CONTINUOUS, Starting Tue06/20/14 at 0730, DURING DIALYSIS TREATMENT, Dialysis PRN Medication Order 06/18/2014 06/19/2014 06/20/2014 guaiFENesin-dextromethorphan (ROBITUSSIN DM) 100-10 MG/5ML syrup 5 mL (CANCELED) 2055 (Given - Provider: Felipa Daugherty RN) 5 mL, Oral, EVERY 4 HOURS PRN, cough, Starting Padmaja 06/13/14 at 100 1 hydrALAZINE (APRESOLINE) injection 10 mg (CANCELED) 04 53 (Given - Provider: Mo Warner RN)1409 (Given - Provider: Laureen Mendiola, LINDA) 10 mg, Intravenous, EVERY 4 HOURS PRN, h igh blood pressure, Starting 06/08/14 at 1330, For systolic BP greater than 180 phenol-menthol (CEPASTAT) lozenge 1-2 lozenge (CANCELE D) 0017 (Given - Provider: Mo Warner RN)2045 (Given - Provider: Felipa Daugherty RN) 0539 (Given - Provider: Mo Warner RN) 1-2 lozenge, Buccal, EVERY 1 HOUR PRN, o ther, dry/sore throat without fever , Starting 06/10/14 at 2131 documented in this encounter Care Teams Knitting Machine Fixer Relationship Specialty Start Date End Date Preet Huff PCP - General 06/24/11 documented as of this encounter
--- OUTSIDE RECORDS SUMMARY | 2022-09-01 20:20 | XMS_ITS | Encounter Summary ---
:1965 Author Organization [place] Address [address] [facility] [facility] [place] [address] Care Team Providers Name Role Phone Preet Huff Primary Care Provider Reason for Visit Reason Onset Date Comments Post-Op - Vascular 06/18/2014 Encounter Details Date Type Department Care Team Description 06/18/2014 Telephone [facility] Jaxon Saravia Post-Op - Vascular [facility] Mk Ovideo MD [phone] [id number] [address] [place] [id number] (Wo rk) Social History Tobacco Use Types Packs/Day Years Used Date Smoking Tobacco: Never Smokeless Tobacco: Never Alcohol Use Standard Drinks/Week Comments No 0 (1 standard drink = 0.6 oz pure alcoho l) Sex Assigned at Date Recorded Not on file documented as of this encounter Miscellaneous Notes Telephone Encounter - Jovana Wilkinson RN - 06/20/2014 3:39 PM CDT Scheduled appt 07/04/14 for po - no imaging per Dr. Saravia. 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 Discharge summary includes wound care but will need to verify further instructions with Dr. Saravia. Thelma is comfortable with a call back on 06/20/[address] Saravia is next in the clinic. Jovana Wilkinson, LINDA CVN documented in this encounter Plan of Treatment Not on filedocumented as of this encounter Visit Diagnoses Not on filedocumented in this encounter Care Teams Hair Cutter Relationship Specialty Start Date End Date Preet Huff PCP - General 06/24/11 documented as of this encounter
--- OUTSIDE RECORDS SUMMARY | 2022-09-01 20:21 | XMS_ITS | Encounter Summary ---
:1965 Author Organization [facility] Address [address] [facility] [place] [address] Care Team Providers Name Role Phone Preet Huff Primary Care Provider Reason for Visit Auth/Cert - Closed Specialty Diagnoses / Procedures Referred By Contact Refer red To Contact Surgery Diagnoses dehiscence surgical incision Sh Periop Services Procedures REVISION FISTULA ARTERIOVENOUS LOWER EXTREMITY COMBINED IRRIGATION AND DEBRIDEMENT LOWER EXTREMITY [address], [address] [place] [phone] Phone: Referral ID Status Reason Start Date Expiration Date Visits Requ ested Visits Authorized [id number] Closed 1 1 Encounter Details Date Type Department Care Team Description 06/15/2014 Anesthesia Event [facility] Grover Acosta [place] 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 P atient of Dr. Saravia No medications on file. Agents No agents on file. Blood No blood administrations on file. Lines, Drains, and Airways Type Details Placement Removal Hemodialysis Vascular Arteriovenous fistula; 05/08/14 1016 by Access Left; Femoral vein Incision/Surgical Site 10/20/11; 2000; Lower, 10/20/112000 by 1 11/18/15 1120 by Right; Arm; 09/17/16; oMna Vang Johnso n, Lisa D, 1120 RN RN Incision/Surgical Site 10/20/11; 2002; Upper, 10/20/112002 by 1 11/18/15 1120 by Right; Arm; 09/17/16; Mona Vang Johnso n, Lisa D, 1120 RN RN Incision/Surgical Site 05/03/12; 1600; Right; 05/03/12 1600 by 1 11/18/15 1120 by Groin; 09/17/16; 1120 Monserrat Blake RN Johns on, Lisa D, textile artist Vascular Arteriovenous fistula; 08/03/12 1948 by 1120 [...] RN Johnson, Lisa D, 09/17/16; 1120 RN Peripheral IV 05/07/13; 1205; Left, 05/07/13 1205 by 11/21/15 1005 by Anterior; Lower forearm; Arianna Ennis RN Mokaya, Wycliffe (attempted Lt. A/C x 2); O, RN Chlorhexidine; None; 2; Tolerated well (Nurse to call anesthesia to start, veins small) Incision/Surgical Site 06/20/13; 1001; Left; 06/20/13 1001 by 1120 by Groin; 09/17/16; 1120 Macie Amin L isa D, Mamaril, RN textile artist Vascular Arteriovenous graft; 06/20/13 1646 by 12/0 06/25 1120 by Access Left Megan Ochoa, RN Peripheral IV 06/28/13; 20 G, 1 1/4 06/28/13 0000 by 06/20/14 1429 by inch; Right; Accessory Okpala, Tunde O, Milagro au, Marichuy L, cephalic; Tolerated well RN RN Venous Sheath 06/28/13; 1550; 6 Fr; 06/28/13 1550 by 09/17/16 1120 by Other (Comment) (right Hans Pérez, LINDA zuleta, Megan Thomas, fistula); Right; F RN Fuentes; 09/17/16; 1120 Arterial Sheath 06/28/13; 1600; 6 Fr; 06/28/13 1600 by 09/17/16 1120 by Other (Comment) (right Hans Pérez, LINDA zuleta, Megan Thomas, thigh fistula); Right; F RN Gina; 09/17/16; 1120 Incision/Surgical Site 06/04/14; 1600; Left, 06/04/14 1600 by 1120 by Upper; Thigh; 09/17/16; Esha Garzon, RN Graham webber, Megan Thomas, 1120 RN Negative Pressure Wound 06/07/14; 1446; MD; Leg; 06/07/14 1446 b y 11/21/15 1005 by Therapy Left; 11/21/15; 1005 Sb Davila RN Mokaya, Osmani Hitchcock RN Peripheral IV 06/15/14; 2034; 20 G; 06/15/145 by 06/16/14 1437 by Right; Hand; Alcohol; Grover Acosta Cliffor d, Vicki Injectable; Tolerated JUDITH aBlbuena RN well documented in this encounter Social History Tobacco [...] on filedocumented in this encounter Care Teams Typer Relationship Specialty Start Date End Date Preet Huff PCP - General 06/24/11 documented as of this encounter
--- OUTSIDE RECORDS SUMMARY | 2022-09-01 20:21 | XMS_ITS | Encounter Summary ---
:1965 Author Organization [place] Address [address] [place] [address] Care Team Providers Name Role Phone Preet Huff Primary Care Provider Reason for Visit Auth/Cert - Closed Specialty Diagnoses / Procedures Referred By Contact Refer red To Contact Surgery Diagnoses dehiscence surgical incision Sh Periop Services Procedures REVISION FISTULA ARTERIOVENOUS LOWER EXTREMITY COMBINED IRRIGATION AND DEBRIDEMENT LOWER EXTREMITY [address], [address] [place] [phone] Phone: Referral ID Status Reason Start Date Expiration Date Visits Requ ested Visits Authorized [id number] Closed 1 1 Encounter Details Date Type Department Care Team Description 06/04/2014 Surgery [facility] Jaxon Buenrostro IRRIGATI ON,DEBRIDEMENT, [place] PeriOP MD Preet AND REPAIR LEFT Services [address] INFECTED PROFUNDA [address], [address] FEMORIS ARTERY [address] [place] [address] SUPERFICIAL FEMORAL [place] [address] VEIN LOOP PTFE GRAFT [phone] Surgery Details Date/Time Status Location OR Service Patient Case Class Case Type Trauma Class Case? 06/04/14 2:40 Posted Z SH [facility] 24 General Same Day PM Surgery Panel 1 Procedure LRB Anes Op Region Wound Class Commen ts IRRIGATION,DEBRIDEMENT Left MAC Leg I-Clean IR RIGATION,DEBRIDEMEN ,AND REPAIR LEFT T,AND RE PAIR LEFT INFECTED PROFUNDA INFECTE D PROFUNDA FEMORIS ARTERY TO FEMORIS ARTERY TO SUPERFICIAL FEMORAL SUPER FICIAL FEMORAL VEIN LOOP PTFE GRAFT VEIN LOOP PTFE GRAFT IRRIGATION AND Left MAC Leg II-Clean Contaminated DEBRIDEMENT, LOWER EXTREMITY Surgeon Surgeon Role Service Panel Jaxon Buenrostro MD Primary General 1 Radn Benedict MD Resident - Assisting 1 Special Needs PATIENT UNABLE TO SPEAK ...AUNT OFTEN WI TH PATIENT (does not use sign language) COGNITIVE ISSUES documented in this encounter Social History Tobacco Use Types Packs/Day Years Used Date Smoking Tobacco: Never Smokeless Tobacco: Never Alcohol Use Standard Drinks/Week Comments No 0 (1 standard drink = 0.6 oz pure alcoho l) Sex Assigned at Date Recorded Not on file documented as of this encounter Last Filed Vital Signs Vital Sign Reading Time Taken Comments Blood Pressure 141/68 06/04/2014 4:13 PM CDT Pulse - - Temperature 36.5 ??C (97.7 ??F) 06/04/2014 4:13 PM CDT Respiratory Rate 14 06/04/2014 4:13 PM CDT Oxygen Saturation 100% 06/04/2014 4:13 PM CDT Inhaled Oxygen Concentration - - Weight 83.9 kg (184 lb 14.4 oz) 06/04/2014 1:22 PM CDT Height 162.6 cm (5' 4) 06/04/2014 [...] salvage this graft. JAXON BUENROSTRO MD MT: [id number] Name: JULIO CESAR SANDHU MRN: [id number] Account: [id number] : 1965 Admit Date: Discharge Date: 06/20/2014 Document: [id number] cc: [place] [facility] documented in this encounter Medications at Time of Discharge Medication Sig Dispensed Refills Start Date End Date Cholecalciferol (VITAMIN Take 2,000 Units by 0 D3 PO) mouth every evening b pucfore-C-dbqxu acid Take 1 capsule by 0 03/04/2016 [...] nurse, Thelma (pt's relative) called reporting that [facility] has not called pt yet. I spoke wt Jessie Perez RN at [facility] and she states she can't get hold of the pt andleft a message at pt's phone number. I called and spoke wt Thelma and instructed her to call Jessie at [phone]. Thelma states she will call Jessie. Also DC orders faxed again to Jessie at [facility] fax # . Nely Crocker LSW - 06/20/2014 10:32 AM CDT SW: I: SW following for d/c planning. Pt will likely d/c today following dialysis run. Pt transport originally arranged for 1100, however has been rescheduled for 1500. SW in contact with pt [employer] home care agency to update on d/c today and inquire about agency's ability to provide skilled services. Unfortunately, [facility] does not provides any skilled services, only COLOR MAKER, TIE IN MACHINE OPERATOR, and homemaker services. SW left message with [facility] P: to make referral for RN services for dressing changes. P: SW to follow. Anticipate d/c today at 1500 via [facility] transport with home care services and resumption of [employer] services. ADDENDUM: Referral placed with [facility] for home RN services. D/C orders faxed to . Nely Crocker, WORKFORCE SPECIALIST, [facility] [id number] Job Jorge MD - 06/20/2014 10:17 AM [...] 1-3 Units Subcutaneous At Bedtime ??? B mqiamws-W-vroml acid 1 capsule Oral At Bedtime ??? [...] -- -- -- 129* -- 82 90 JNO -- -- -- 8.6 -- 9.1 9.0 INR Recent Labs Lab 06/20/14 0930 06/20/14 0808 06/19/14 0720 06/18/14 0515 INR 1.97* Test canceled by PCU/Clinic Charge creditedspoke with Ariadne in dialysis and he had aalready received heparin 2.40* 2.17* Attestation: I have reviewed today's relevant vital signs, notes, medications, labs and imaging. Job Jorge MD [facility] - Nephrology Office phone :[phone] Pager: [phone] Jaxon Buenrostro MD - 06/20/2014 7:40 AM [...] achieved after 30 minutes. Patient dialyzes at [facility] T--Tue. POST ASSESSMENTS: Skin warm and dry, alert, denies discomfort, Lungs clear, Resp rate regular, apical rate regular. No edema. See flowsheet in Our Security Team for further details. Report given to Marichuy [...] rec'd from LINDA Garza RN [facility] tacy Okeefe RN - 06/19/2014 3:13 PM CDT DIALYSIS [...] procedure and ESRD while on dialysis. See [facility] dialysis flowsheet for details of dialysis run and post run report hand off. Transducer protector checked Q 15 minutes, dry at each check Pt arrived to dialysis via wc, left via wc Pt dialyzes TTHSat in [place] alarms on for run Will dialyze 06/20 at 0730 Post run pt assessment charted in [facility] on [facility] flowsheet Nely Crocker LSW - 06/19/2014 11:28 AM CDT SW: I: SW following for d/c planning. Pt will have dialysis run today at 1300. Pt utilizes [facility], [facility] . SW in contact with [employer], was informed that transport is available up until 1500. As pt will not be ready for d/c until earliest 1800, SW as arranged transport to picket labor union pt from his room tomorrow, 06/20 at 1100. SULY in contact with pt Aunt/COLOR MAKER, Thelma, withupdate. D/c orders faxed to [facility] F: [phone]. P: SW to follow. Nely Crocker, WORKFORCE SPECIALIST, [facility] [id number] Caryn Bajwa - 06/19/2014 11:00 AM CDT SPIRITUAL HEALTH SERVICES Progress Note [facility] 33 Visited pt as a follow up to a previous visit. Pt had several coloring books and crayons and SH looked through the colorings with pt. Pt told SH he had a sikh and that he liked it. When asked what he liked most about sikh pt said praying. SH asked if pt wanted to pray and pt motioned for SH to sit with him. SH prayed with pt and pt made gestures of appreciation. SH will remain available to pt. Caryn Bajwa [employer] Production Team Member Pager [phone] AKT Job Jorge MD - 06/19/2014 9:55 [...] 1-3 Units Subcutaneous At Bedtime ??? B dpxhcju-D-xcwpa acid 1 capsule Oral At Bedtime ??? [...] clean. Data: CBC RESULTS: Recent Labs Lab 06/19/14 0720 06/17/14 0731 06/16/14 0730 06/15/14 [...] 9.1 9.0 -- INR Recent Labs Lab 06/19/14 0720 06/18/14 0515 06/17/14 0731 06/16/14 0730 INR 2.40* 2.17* 1.93* 1.88* Attestation: I have reviewed today's relevant vital signs, notes, medications, labs and imaging. Job Jorge MD [facility] - Nephrology Office phone :[phone] Pager: [phone] Jaxon Buenrostro MD - 06/19/2014 7:08 AM [...] and warfarin. Emi Benedict, G4 Surgery Resident [phone] Staff: Left thigh wound clean. VAC discontinued. [...] r.n., post run report given to tahmina quinton r.n.. See flowsheet in Our Security Team for run details. Job Jorge MD - [...] 1-3 Units Subcutaneous At Bedtime ??? B xqqpjai-L-jnqdl acid 1 capsule Oral At Bedtime ??? [...] -- Basic Metabolic Panel: Recent Labs Lab 06/18/14 [...] 9.1 9.0 -- INR Recent Labs Lab 06/18/14 0515 06/17/14 0731 06/16/14 0730 06/15/14 0734 INR 2.17* 1.93* 1.88* 1.63* Attestation: I have reviewed today's relevant vital signs, notes, medications, labs and imaging. Job Jorge MD [facility] - Nephrology Office phone :[phone] Pager: [phone] Jaxon Buenrostro MD - 06/18/2014 10:12 AM CDT Vascular Surgery Progress Note S:No complaints O: Vitals: BP Min: 151/81 Max: 188/91 Temp Av ??F (36.7 ??C) Min: 97.5 ??F (36.4 ??C) Max: 98.5 ??F (36.9 ??C) Pulse Av.8 Min: 79 Max: 88 Physical Exam:VAC working well Assessment/Plan:Plan to remove VAC after today's dialysis and go to [facility] for home. Plan discharge on po antibiotics ? Levaquin. Addendum: Duplex of PTFE reveals no significant stenosis of the inflow or outflow. Thus no need for fistulogram. WmLorena Buenrostro MD Job Jorge MD - 06/17/2014 12:25 PM [...] 1-3 Units Subcutaneous At Bedtime ??? B ulmnppq-E-ahfjv acid 1 capsule Oral At Bedtime ??? [...] medications, labs and imaging. Job Jorge MD [facility] - Nephrology Office phone :[phone] Pager: [phone] Georgia Tanner, OIL HEAT TECHNICIAN - 06/17/2014 11:43 AM CDT 06/17/14 1127 [...] Taken left lateral Physical Location of Procedure [facility] VFSS Eval: Thin Liquid Texture Trial Mode [...] swallow response; no pharyngeal residue VFSS Eval: Richton Thick Liquid Texture Trial Mode of Presentation, Richton cup;self-fed Order of Presentation 4 Preparatory Phase Poor bolus control Oral Phase, Richton Poor AP movement;Premature pharyngeal entry Pharyngeal Phase, Richton Delayed swallow reflex (delay to pyriform sinuses) Rosenbek's Penetration Aspiration Scale: Richton-Thick Liquid Trial Results 2 - contrast enters [...] up Anticipated Discharge Disposition other (see comments) (prison with home OIL HEAT TECHNICIAN) Risks and Benefits of Treatment have been [...] Time Total Evaluation Time (Minutes) 15 Jaxon Buenrostro MD - 06/17/2014 7:34 AM CDT Vascular [...] How long with antibiotics. Wm. Rani HARPER Alejandro Emerson MD - 06/16/2014 11:10 AM [...] up Anticipated Discharge Disposition other (see comments) (Fdc with Home ST) Risks and Benefits of [...] Total Evaluation Time (Minutes) 20 minutes Angie Gotti RN - 06/15/2014 3:56 PM CDT Potassium [...] needles. The patient was seen by Dr. Emerosn during the treatment. Total heparin received during the treatment: 0 units. Sites held x 20min then pressure drsgs applied. Meds Given:EPO 11,000units IV Complications: NONE. Procedure and ESRD teaching done and questions answered. See flowsheet in Our Security Team for further details and post assessment. Pt returned via Wheelchair. Machine water alarm in place and functioning. Vascular Access: Aseptic prep done for both on/off. Report received from:Nisha Quijano R.N. Report given to:Tyrone Todd R.n. [facility] [place] [facility] Hepatitis B surface antigen neg 06/08/14 and hbsab Immune 06/08/14. AKT Alejandro Emerson MD - 06/15/2014 1:31 PM [...] 1-3 Units Subcutaneous At Bedtime ??? B wdskqvm-G-whdfb acid 1 capsule Oral At Bedtime ??? [...] vu Physical Exam: Vitals were reviewed in [facility] Wt Readings from Last 3 Encounters: 06/13/14 [...] labs and imaging. Alejandro Emerson MD, MD [facility] Nephrology [phone] Jaxon Buenrostro MD - 06/15/2014 7:28 AM [...] Possibly home early next week. Emi Benedict, Surgery Resident [phone] Megan Becerra LSW - 06/14/2014 1:45 PM CDT D: Per SS protocol following for discharge planning. Patient anticipated to discharge Tuesday or Tuesday. I/A: SW contacted [facility] to check benefits for home IV Abx. P: SW following. Update I: Received call from Mirlande at [facility]. Patient does not have home IV Abx coverage through his Medicare. Patient does have coverage through [place]; however, we will need to have patient sign an ABN (Advance Beneficiary Notice) and fax it to [facility] (fax [phone]) prior to patient's discharge- this form will allow [place] to cover the home IV abx. P: [...] Minimize blood draws. Emi Benedict, Surgery Resident [phone] Staff: Graft almost covered with granulation. We performed a selective wound debridement at bedside with #15 blade. >90% healthy granulation. Wd= 7 x 1.5 x 1 cm. <1cm x0.4 cm anterior graft wall visible. Siver VAC reapplied. Jaxon Buenrostro MD AKT Stacy Del Rio RN - 06/13/2014 11:26 [...] left via wc Pt dialyzes TThSat in [place] alarms on for run . Post run pt assessment charted in [facility] on [facility] flowsheet Alejandro Emerson MD [...] 1-3 Units Subcutaneous At Bedtime ??? B candoes-O-tkmhd acid 1 capsule Oral At Bedtime ??? [...] [Dihydroxyaluminum Aminoacetate] GI Disturbance GI bleeding Labs: [facility] Recent Labs Lab 06/13/14 0655 06/11/14 1300 [...] vu Physical Exam: Vitals were reviewed in [facility] Wt Readings from Last 3 Encounters: 06/13/14 [...] labs and imaging. Alejandro Emerson MD, MD [facility] Nephrology [phone] Jaxon Buenrostro MD - 06/13/2014 7:41 AM [...] total at least 3weeks. Dialysis today. Emi Luca, G4 Surgery Resident [phone] Staff: As above. Change VAC in AM. Jaxon Buenrostro MD Caryn Bajwa - 06/12/2014 3:21 PM CDT SPIRITUAL HEALTH SERVICES Progress Note [facility] 33 DATA: Visited pt per LOS. Pt has some difficulty talking and at times started to fall asleep. Pt stated that he had a sikh but did not want SH to contact his sikh. Told SH that would be pointless. SH [...] follow up depending on LOS. Caryn Bajwa [employer] Production Team Member Pager [phone] Alejandro Emerson MD - 06/12/2014 3:08 PM [...] 1-3 Units Subcutaneous At Bedtime ??? B ngfbdna-K-rktmi acid 1 capsule Oral At Bedtime ??? [...] medications, labs and imaging. Alejandro Emerson MD [facility]rology [phone], LD - 06/12/2014 12:06 PM CDT Received a phone call from pt's dietitian at [facility], she confirmed that pt has Prader-WilliSyndrom. She [...] on to nursing. Suad Johnston RD Pager [phone] (M-F) [phone] (W/E & Hol) Jaxon Buenrostro MD - [...] Cont IV nafcillin. Vesta Burgos Surgery Resident [phone] Staff: As above. Wound looking good. VAC [...] abx. Dialysis TThSa. Vesta Burgos Surgery Resident [phone] Negrita Alvarez RN - 06/11/2014 3:08 PM CDT Malaise and fatigue before surgery, blood pressures elevated 192/101. After procedure blood pressureimproved. Lung sounds diminished, dry non productive cough. Up with stand by assist, fistula on leftthigh, has a wound vac. On Iv antibiotics denied any pain. Suad Johnston RD, LD - 06/11/2014 1:13 PM CDT BRIEF NUTRITION ASSESSMENT REASON FOR ASSESSMENT: LOS CURRENT DIET AND NOURISHMENT ORDER: Information obtained from the chart and rn social work. Pt is in dialysis; attempted to visit him but he was busy w/staff. He likely sees an RD monthly, perdialysis protocol. Per rn social work, pt's aunt (with whom he lives) stated [...] nutritional status changes. Suad Johnston RD Pager [phone] (M-F) [phone] (W/E & Hol) Isis Stanley RN - [...] with his aunt who is also his COLOR MAKER and POA. I: SULY met with pt's [...] she is listed at the primary financial sales representative for pt. Thelma manages all aspects of [...] SULY relay ed this information to pt's Cherry Dipper. Thelma would like pt to return to his home in [place] oncehe is medically stable. Pt uses [facility] for transport needs ([phone]) which will needto be arranged on DC. SULY unable to speak with pt as he was asleep in dialysis at the time of the above meeting. Per Thelma, pt is on the kidney transplant list through [facility] and Thelma is interested in having further procedures completed at an [facility] for continuity of care. SULY told Thelma todiscuss this with pt's PCP and Dr. Buenrostro. A: Pt would benefit from returning home with his aunt/COLOR MAKER when medically stable. Pt has many involved and supportive family members. P: SW will follow for DC planning and as needed. PERLA Neal, [facility] ADDENDUM: Anya from [facility] left a message for SW asking for DC summary and orders when pt is discharged (P: [phone]). [employer] [employer] is [employer]KER company for pt at home. Shirley Hampton [...] done and questions answered. See flowsheet in Our Security Team for further details. Post-run labs drawn at the end of dialysis (per Dr Emerson): K+, Hgb, Iron studies, ferritin. Prime given: NS Saline double clamped and Arterial/Venous parameters set. Medical aseptic prep utilized. RO Log completed. Patient transported via bed to and from the dialysis unit. Transducers checked q15 minutes with vital sign check. Dialyzer Lot # [id number] Blood line Lot # [id number] Hepatitis B surface Ag: Non-reactive (06/04/14) Hepatitis B surface Ab: Immune (06/04/14) Pre-run report received from: Negrita Alvarez RN Post-run report given to: the same [facility] [place] [facility] Kalie Hampton RN - Isrrael Alejandro Emerson MD - 06/11/2014 9:13 AM [...] 1-3 Units Subcutaneous At Bedtime ??? B efcaxwi-J-xaitz acid 1 capsule Oral At Bedtime ??? [...] [Dihydroxyaluminum Aminoacetate] GI Disturbance GI bleeding Labs: [facility] Recent Labs Lab 06/10/14 0713 06/10/14 0040 [...] vu Physical Exam: Vitals were reviewed in [facility] Wt Readings from Last 3 Encounters: 06/11/14 [...] labs and imaging. Alejandro Emerson MD, MD [facility] Ne[facility]rology [phone] Wojciech Holman MD - 06/10/2014 9:44 AM [...] HGB 7.3* 8.0* 7.9* 8.2* Rell Holman [facility] [phone] Jaxon Buenrostro MD - 06/10/2014 7:37 AM CDT Vascular Surgery Progress Note S:Bell Hole Digger complaints. No pain left thigh. Up eating [...] antibiotics HTN Hyperkalemia-- trying to adjust diet. Wm. Rani HARPER Chi Brunson MD - 06/09/2014 [...] 1-3 Units Subcutaneous At Bedtime ??? B rpdqbpf-Q-wutpn acid 1 capsule Oral At Bedtime ??? [...] medications, labs and imaging. Chi Brunson MD [facility] Nephrology [phone] Jaxon Buenrostro MD - 06/09/2014 8:35 AM [...] encourage activity, cont coumadin. Continue nafcillin. [facility] [phone] Staff: As above. Good granulation but graft [...] procedure and ESRD while on dialysis. See [facility] dialysis flowsheet for details of dialysis run and post run report hand off. Transducer protector checked Q 15 minutes, dry at each check Pt arrived to dialysis via wheelchair, left via wheelchair Pt dialyzes TTHSat in [place] alarms on for run . Post run pt assessment charted [facility] Chi Brunson MD - 06/08/2014 [...] 1-3 Units Subcutaneous At Bedtime ??? B eikypza-S-wdhyy acid 1 capsule Oral At Bedtime ??? [...] Recent Labs Lab 06/08/1443 06/07/14 0741 06/06/14 0830 06/05/14 0739 06/04/14 1315 NA -- -- 129* -- -- POTASSIUM 6.2* 4.8 4.8 4.3 3.5 CHLORIDE -- -- 93* -- -- CO2 -- -- 25 -- -- BUN -- -- 59* -- -- CR -- -- 8.94* -- -- GLC -- -- 93 106* -- JON -- -- 8.1* -- -- INR Recent Labs Lab 06/08/1443 06/07/14 0741 06/06/14 0806/05/14 0739 INR 1.49* 1.34* 1.43* 1.68* Attestation: I have reviewed today's relevant vital signs, notes, medications, labs and imaging. Chi Brunson MD [facility] Nephrology [phone] Jaxon Buenrostro MD - 06/08/2014 9:14 AM [...] under sterile conditions. Continue diabetic diet, warfarin, GREASER OPERATOR meds. Encourage activity Emi Benedict, Surgery Resident [phone] Staff: Agree with above. VAC now on [...] procedure and ESRD while on dialysis. See [facility] dialysis flowsheet for details of dialysis run and post run report hand off. Transducer protector checked Q 15 minutes, dry at each check Pt arrived to dialysis via bed, left via bed Pt dialyzes TThSat in [place] alarms on for run . Post run pt assessment charted in [facility] on [facility] flowsheet AKT Jaxon Buenrostro MD - 06/06/2014 6:58 AM CDT Vascular Surgery Progress Note Doing well without pain. AF/VSS Wound with granulation tissue at base but graft still exposed, moderate SS drainage Ji comer May be ready for wound vac tomorrow or Tuesday. Continue diabetic diet, warfarin, GREASER OPERATOR meds. Dialysis today. OK to restart lisinopril. Vesta Burgos Surgery Resident [phone] Staff: Patient on dialysis using left PTFE proximal and distal to open wound-- working well. ? VAC tomorrow. Trying to salvage graft due to limited access options. Jaxon Buenrostro MD Jaxon Chaney MD - 06/05/2014 7:54 AM CDT Vascular [...] restart warfarin today. Vesta Burgos Surgery Resident [phone] Staff: As above. Wd=clean with no drainage. +3 left DP pulse. Bedside dressing change in AM--? VAC. IV Vancomycin. Dialysis q T-TH-Sat. Jaxon Buenrostro MD Rand Benedict MD - 06/04/2014 6:16 PM [...] as tolerated. Emi Benedict, G4 Surgery Resident [phone] documented in this encounter Consult Notes Chi Brunson MD - 06/06/2014 10:36 AM CDT RENAL CONSULTATION NOTE REFERRING MD: Drs. Benedict/Rani REASON FOR CONSULTATION: ESKD HPI: 49 m c ESKD 2 HTN/DM2, who dialyses TRS via L fem graft at the [facility] under the care of Dr. [...] ??? ESRD (end stage renal disease) dialysis T--Sat ??? Blind ??? DVT (deep venous thrombosis) [...] LOWER EXTREMITY; Surgeon: Jaxon Buenrostro MD; Location: [place] MEDICATIONS: ??? sodium chloride 0.9 % 250-1,000 mL Intravenous Once in dialysis ??? epoetin mauricio (EPOGEN,PROCRIT) inj ESRD 11,000 Units Intravenous See Admin Instructions ??? epoetin mauricio ??? epoetin mauricio ??? insulin aspart 1-3 Units Subcutaneous TID AC ??? insulin aspart 1-3 Units Subcutaneous At Bedtime ??? B jwbhmgm-Q-egefb acid 1 capsule Oral At Bedtime ??? [...] call if any questions. Chi Brunson MD [facility] - Nephrology [phone] documented in this encounter Nursing Notes Ashely Lopez RN - 06/04/2014 1:33 PM CDT PT. [...] Notes Plan of Care - Jonn Strickland, OIL HEAT TECHNICIAN - 06/20/2014 5:12 PM CDT Problem: General Rehab Plan of Care Goal: Speech Language Pathology Goals The patient and/or their public relations representative will achieve their patient-specific goals related [...] results and recommendations from videoswallow study below:. OIL HEAT TECHNICIAN: Video swallow study completed. Patient presents with [...] to impulsivity. Consulted with RN. Recommend home OIL HEAT TECHNICIAN at discharge. Plan of Care - Marichuy [...] with his aunt who is also his COLOR MAKER. AM 06/11 Outcome: No Change Left thigh dressing CD&I. DC to home today. DC instructions reviewed with both patient (in room)and with COLOR MAKERThelma, on phone. Both stated an understanding. DC to home once transportation here. Plan of Care - Jonn Strickland SLP - 06/20/2014 12:49 PM CDT Problem: General Rehab Plan of Care Goal: Speech Language Pathology Goals The patient and/or their public relations representative will achieve their patient-specific goals related [...] Therapy, progress toward functional goals as expected OIL HEAT TECHNICIAN: Pt seen for dysphagia diet education, prior to discharge today, and at end of dialysis and after transition to patient room. OIL HEAT TECHNICIAN provided handout information on results of videoswallow study for home health and also diet recs for modified dysphagia level 3 diet. pt would benefit from follow up home health OIL HEAT TECHNICIAN services. Plan of Care - Mo Warner RN - 06/20/2014 3:11 AM CDT Problem: IP GENERAL POC-ADULT,OB,BEHAVIORAL FVCPM Goal: Individualization/Patient-Specific Goal (Adult,OB,Behavioral 06/04:IRRIGATION,DEBRIDEMENT,AND REPAIR LEFT INFECTED PROFUNDA FEMORIS ARTERY TO SUPERFICIAL FEMORAL VEIN LOOP PTFE GRAFT Hx: Prader-Willi Syndrom Vac in place at left thigh/fistula area CM... Pt???s goal is to return home where he lives with his aunt who is also his COLOR MAKER. AM 9/2 Outcome: No Change VSS. Denies pain. Tele [...] with his aunt who is also his COLOR MAKER. AM 9/2 Outcome: No Change Tele NSR. Denies pain. Bruit and thrill present. Drsg intact. Plan for dialysis tomorrow and then discharge home. Plan of Care - Zuleyka Moore SLP - 06/19/2014 4:02 PM CDT Problem: General Rehab Plan of Care Goal: Speech Language Pathology Goals The patient and/or their public relations representative will achieve their patient-specific goals related [...] evaluation safest least restrictive diet with strategies. OIL HEAT TECHNICIAN - Unable to see patient for swallow [...] with his aunt who is also his COLOR MAKER. AM 06/11 Outcome: No Change Dialysis run today. Denies [...] with his aunt who is also his COLOR MAKER. AM 06/11 Outcome: No Change VSS. Denies pain. CMS [...] with his aunt who is also his COLOR MAKER. AM 06/11 Outcome: No Change Taking robitussin for cough. Wound vac intact. Dressing CDI. Plan of Care - Britt Manzanares SLP - 06/18/2014 4:15 PM CDT Problem: General Rehab Plan of Care Goal: Speech Language Pathology Goals The patient and/or their public relations representative will achieve their patient-specific goals related [...] evaluation safest least restrictive diet with strategies. OIL HEAT TECHNICIAN: attempted to see patient this am and [...] with his aunt who is also his COLOR MAKER. AM 92 Outcome: No Change VSS ex HTN @ [...] with his aunt who is also his COLOR MAKER. AM 92 Outcome: No Change Denies pain. Tele SR [...] with his aunt who is also his COLOR MAKER. AM 06/11 Outcome: No Change Pt orientation:A/O x3 Pain level/management:Denies Activity level:SBA Tests/procedures for next shift:Dialysis and fistulagram 06/18/14 DC date:06/18 Info related to surg/dx:Pt very quiet today. LS diminished, +BS, +flatus, Wound VAC intact, +bruit and thrill. Pt needs reminders to eat slower and tiny bites. Plan of Care - Georgia Tanner OIL HEAT TECHNICIAN - 06/17/2014 11:47 AM CDT Problem: General Rehab Plan of Care Goal: Speech Language Pathology Goals The patient and/or their public relations representative will achieve their patient-specific goals related [...] Therapy, progress towards functional goals is fair OIL HEAT TECHNICIAN: Video swallow study completed. Patient presents with [...] to impulsivity. Consulted with RN. Recommend home OIL HEAT TECHNICIAN at discharge. Plan of Care - Nola Lizarraga RN - 06/17/2014 7:57 AM CDT Problem: IP GENERAL POC-ADULT,OB,BEHAVIORAL FVCPM Goal: Individualization/Patient-Specific Goal (Adult,OB,Behavioral 06/04:IRRIGATION,DEBRIDEMENT,AND REPAIR LEFT INFECTED PROFUNDA FEMORIS ARTERY TO SUPERFICIAL FEMORAL VEIN LOOP PTFE GRAFT Vac in place at left thigh/fistula area CM... Pt???s goal is to return home where he lives with his aunt who is also his COLOR MAKER. AM 06/11 Outcome: No Change VSS ex [...] with his aunt who is also his COLOR MAKER. AM 06/11 Outcome: Improving VSS, denies pain. [...] with his aunt who is also his COLOR MAKER. AM 06/11 Outcome: No Change Hypertensive. Wound [...] Language Pathology Goals The patient and/or their public relations representative will achieve their patient-specific goals related [...] restrictive diet with strategies. Outcome: No Change OIL HEAT TECHNICIAN Bedside swallow evaluation. Pt see in chair [...] with his aunt who is also his COLOR MAKER. AM 92 Outcome: No Change VSS. Denies pain. Vac [...] with his aunt who is also his COLOR MAKER. AM 92 Outcome: Improving VSS with exception of hypertension. [...] with his aunt who is also his COLOR MAKER. AM 92 Outcome: No Change Hypertensive at [...] with his aunt who is also his COLOR MAKER. AM 92 Outcome: No Change SBP 190-max [...] with his aunt who is also his COLOR MAKER. AM 06/11 Outcome: No Change Patient Axo-forgetful at times. [...] with his aunt who is also his COLOR MAKER. AM 06/11 Outcome: No Change VSS. A/O but forgetful with some learning deficit. No pain. Wnd vac CDI. Rt groin fistula CDI. Bruit/ thrill present. No void this shift. Passing gas. Up with SBA. Plan of Ira Goldberg RN - 06/14/2014 7:35 AM CDT Problem: IP GENERAL POC-ADULT,OB,BEHAVIORAL FVCPM Goal: Individualization/Patient-Specific Goal (Adult,OB,Behavioral 06/04:IRRIGATION,DEBRIDEMENT,AND REPAIR LEFT INFECTED PROFUNDA FEMORIS ARTERY TO SUPERFICIAL FEMORAL VEIN LOOP PTFE GRAFT Vac in place at left thigh/fistula area CM... Pt???s goal is to return home where he lives with his aunt who is also his COLOR MAKER. AM 06/11 Outcome: No Change Plan of Care - Katja Abdalla RN - 06/13/2014 10:56 PM CDT Problem: IP GENERAL POC-ADULT,OB,BEHAVIORAL FVCPM Goal: Individualization/Patient-Specific Goal (Adult,OB,Behavioral 06/04:IRRIGATION,DEBRIDEMENT,AND REPAIR LEFT INFECTED PROFUNDA FEMORIS ARTERY TO SUPERFICIAL FEMORAL VEIN LOOP PTFE GRAFT Vac in place at left thigh/fistula area CM... Pt???s goal is to return home where he lives with his aunt who is also his COLOR MAKER. AM 06/11 Outcome: No Change Disoriented to [...] with his aunt who is also his COLOR MAKER. AM 06/11 Outcome: No Change Pt in good spirits after dialysis, denies pain, c/o dry cough, robitussin ordered. Plan of Jigar - Aleta Edward RN - 06/13/2014 5:14 AM CDT Problem: IP GENERAL POC-ADULT,OB,BEHAVIORAL FVCPM Goal: Individualization/Patient-Specific Goal (Adult,OB,Behavioral 06/04:IRRIGATION,DEBRIDEMENT,AND REPAIR LEFT INFECTED PROFUNDA FEMORIS ARTERY TO SUPERFICIAL FEMORAL VEIN LOOP PTFE GRAFT Vac in place at left thigh/fistula area CM... Pt???s goal is to return home where he lives with his aunt who is also his COLOR MAKER. AM 06/11 Outcome: No Change A&O x 4. Mild abd pain- controlled with PRN [place]. Up w/ SBA to bathroom. Voiding minimally [...] with his aunt who is also his COLOR MAKER. AM 9/2 Outcome: Improving VSS, [place] controlling pain, wound vac intact, + pulses, [...] with his aunt who is also his COLOR MAKER. AM 9/2 Outcome: No Change Pt resting between cares, [...] with his aunt who is also his COLOR MAKER. AM 06/11 Outcome: No Change VSS. CMS/Pulses [...] with his aunt who is also his COLOR MAKER. AM 06/11 Outcome: Improving VSS, denies pain, Wound Vac WNL, HD today, no urine output, +BM, tolerating meals. Plan of Care - Stephanie Cardoza RN - 06/11/2014 6:52 AM CDT Problem: IP GENERAL POC-ADULT,OB,BEHAVIORAL FVCPM Goal: Plan of Care Review (Adult,OB,Behavioral) The patient and/or their public relations representative will communicate an understanding of their [...] 10:[address] Brunson @ [phone], [phone] & [phone] in regards to continued elevated K @6.0, [...] Lopez RN - 06/09/2014 3:33 PM CDT MD paged regarding K level. Plan of Care [...] PTFE dialysis graft. SURGEON: Jaxon Buenrostro MD PASSENGER CONDUCTOR: RAND BENEDICT MD (surgery resident) ANESTHESIA: None. [...] MT: [id number] Name: JULIO CESAR SANDHU Account: [id number] : 1965 Procedure Date: 06/07/2014 Document: [id number] cc: Jaxon Buenrostro MD Plan of Care [...] least twice weekly for subsequent weeks. Emi Bernard PharmD Plan of Care - Evelina Gant [...] section 70.4. Sincerely, ALDO SALGADO MD System Head Lineman Utilization Review/ Case Management [facility]. Plan of Care - Evelina Gant RN - 06/05/2014 5:30 AM CDT Problem: IP GENERAL POC-ADULT,OB,BEHAVIORAL FVCPM Goal: Individualization/Patient-Specific Goal (Adult,OB,Behavioral The patient and/or their public relations representative will achieve their patient-specific goals related to the plan of care. The patient-specific goals include: Outcome: Improving MR. CURRAN. Denies pain. Up with SBA. Dsg, intact [...] twice weekly for leger bsequent weeks. Emi Bernard, PharmD Plan of Care - Sb Davila RN - 06/04/2014 9:21 PM CDT Problem: IP GENERAL POC-ADULT,OB,BEHAVIORAL FVCPM Goal: Individualization/Patient-Specific Goal (Adult,OB,Behavioral The patient and/or their public relations representative will achieve their patient-specific goals related [...] 3. Pulse lavage. SURGEON: Jaxon Buenrostro MD BROADCAST CHECKER: Rand Benedict MD (surgery resident) ANESTHESIA: General. [...] delayed primary closure. JAXON BUENROSTRO MD MT: #[id number] Name: JULIO CESAR SANDHU Account: [id number] : 1965 Procedure Date: 06/04/2014 Document: [id number] cc: [facility] Brief Op Note - Rand Benedict MD - 06/04/2014 4:10 PM CDT [facility] Brief Operative Note Pre-operative diagnosis: dehiscence [...] Name Type Priority Associated Diagnoses Order S [facility] nursing referral Referral Routine Fistula O rdered: [...] Glucose by meter (06/20/2014 12:22 PM CDT) P athologist Signature Glucose 90 60 - 99 POINT OF CARE mg/dL TEST, GLUCOSE Specimen Anatomical Collection Method Collection Time Receive d Time (Source) Location / / Volume Laterality 06/20/2014 12:22 06/20/2014 PM CDT 12:35 PM CDT Jaxon Buenrostro MD LAB - [place]AK[place] POCT Performing Organization Address City/[facility]/ZIP Code Phon e Number FV POINT OF CARE TEST, GLUCOSE POINT OF CARE TEST, GLUCOSE (ABNORMAL) INR (06/20/2014 9:30 AM CDT) athologist Signature INR 1.97 (H) 0.86 - 1.14 [facility] LAB Specimen Anatomical Collection Method Collection Time Receive d Time (Source) Location / / Volume Laterality 06/20/2014 9:30 AM 4 9:38 CDT AM CDT Jaxon Buenrostro MD LAB - BLOOD ORDERABLES Performing Organization Address City/[facility]/ZIP Code Phon e Number M [facility] [address] [phone] [facility] LAB INR (06/20/2014 8:08 AM CDT) athologist Signature INR Test canceled by PCU/Clinic 0.86 - FA VIEW Charge credited 1.14 DAWITCASSIE spoke with Ariadne in dialysis and he had aalready received heparin [facility] LAB Specimen Anatomical Collection Method Collection Time Receive d Time (Source) Location / / Volume Laterality Blood specimen 06/20/2014 8:08 AM 014 8:26 (specimen) CDT AM CDT Rand Benedict MD LAB - BLOOD ORDERABLES Performing Organization Address City/State/ZIP Code Phon e Number M [facility] [address] [place] [phone] [address] [facility] LAB Potassium (06/20/2014 8:08 AM CDT) athologist Signature Potassium 4.9 3.4 - 5.3 [place] mmol/L [facility] LAB Specimen Anatomical Collection Method Collection Time Receive d Time (Source) Location / / Volume Laterality Blood specimen 06/20/2014 8:08 AM 014 8:26 (specimen) CDT AM CDT Job oJrge MD LAB - BLOOD ORDERABLES Performing Organization Address City/[facility]/ZIP Code Phon e Number M [facility] [address] [place] [phone] [place] [address] LAB (ABNORMAL) Hemoglobin (06/20/2014 8:08 AM CDT) athologist Signature Hemoglobin 7.7 (L) 13.3 - 17.7 [place] g/dL [facility] LAB Specimen Anatomical Collection Method Collection Time Receive d Time (Source) Location / / Volume Laterality Blood specimen 06/20/2014 8:08 AM 014 8:26 (specimen) CDT AM CDT Job Jorge MD LAB - BLOOD ORDERABLES Performing Organization Address City/[facility]/ZIP Code Phon e Number M [facility] [address] [place] [phone] [address] [facility] LAB Glucose by meter (06/20/2014 7:09 AM [...] Glucose by meter (06/19/2014 8:14 PM CDT) P athologist Signature Glucose 153 (H) 60 - 99 POINT OF CARE mg/dL TEST, GLUCOSE Specimen Anatomical Collection Method Collection Time Receive d Time (Source) Location / / Volume Laterality 06/19/2014 8:14 PM 4 8:16 CDT PM CDT Jaxon Buenrostro MD LAB [...] PM 4 5:50 CDT PM CDT Jaxon Buenrostro MD LAB - [place] SPARK[place] POCT Performing Organization Address City/State/ZIP Code Phon [...] CDT 12:01 PM CDT Jaxon DEAN - DAVID POCT Performing Organization Address City/State/ZIP Code Phon e Number FV POINT OF CARE TEST, GLUCOSE POINT OF CARE TEST, GLUCOSE Potassium (06/19/2014 10:09 AM CDT) P athologist Signature Potassium 4.4 3.4 - 5.3 [facility] mmol/L [facility] LAB Specimen Anatomical Collection Method Collection Time Receive d Time (Source) Location / / Volume Laterality Blood specimen 06/19/2014 10:09 4 (specimen) AM CDT 10:16 AM CDT Job Jorge MD LAB - BLOOD ORDERABLES Performing Organization Address City/State/ZIP Code Phon e Number M [facility] [address] [place] [address] [facility] LAB (ABNORMAL) Hemoglobin (06/19/2014 10:09 AM CDT) P athologist Signature Hemoglobin 7.7 (L) 13.3 - 17.7 [place] g/dL [facility] LAB Specimen Anatomical Collection Method Collection Time Receive d Time (Source) Location / / Volume Laterality Blood specimen 06/19/2014 10:09 4 (specimen) AM CDT 10:16 AM CDT Job Jorge MD LAB - BLOOD ORDERABLES Performing Organization Address City/State/ZIP Code Phon e Number M [facility] [address] [place] [address] [facility] LAB Glucose by meter (06/19/2014 7:50 AM CDT) P athologist Signature Glucose 93 60 [...] GLUCOSE (ABNORMAL) INR (06/19/2014 7:20 AM CDT) P athologist Signature INR 2.40 (H) 0.86 - 1.14 [facility] LAB Specimen Anatomical Collection Method Collection Time Receive d Time (Source) Location / / Volume Laterality Blood specimen 06/19/2014 7:20 AM 014 7:29 (specimen) CDT AM CDT Rand Benedict MD LAB - BLOOD ORDERABLES Performing Organization Address City/State/ZIP Code Phon e Number M [facility] [address] [place] [address] [phone] [facility] LAB Platelet count (06/19/2014 7:20 AM CDT) P athologist Signature Platelet Count 173 150 - 450 [place] 10e9/L [facility] LAB Specimen Anatomical Collection Method Collection Time Receive d Time (Source) Location / / Volume Laterality Blood specimen 06/19/2014 7:20 AM 014 7:29 (specimen) CDT AM CDT Rand Benedict MD LAB - BLOOD ORDERABLES Performing Organization Address City/State/ZIP Code Phon e Number [facility] [address] [place] [address] [phone] [facility] LAB (ABNORMAL) Glucose by meter (06/18/2014 9:36 PM CDT) P athologist Signature Glucose 156 (H) 60 - 99 POINT OF CARE mg/dL TEST, GLUCOSE Specimen Anatomical Collection Method Collection Time Receive d Time (Source) Location / / Volume Laterality 06/18/2014 9:36 PM 4 9:41 CDT PM CDT Jaxon DEAN - BEXIANG [...] PM 4 6:11 CDT PM CDT Jaxon DEAN - BEXIANG [...] 3:10 CDT PM CDT Jaxon Buenrostro MD [facility] POCT Performing Organization Address City/State/ZIP Code Phon [...] Glucose by meter (06/18/2014 11:32 AM CDT) P athologist Signature Glucose 78 60 - 99 POINT OF CARE mg/dL TEST, GLUCOSE Specimen Anatomical Collection Method Collection Time Receive d Time (Source) Location / / Volume Laterality 06/18/2014 11:32 06/18/2014 AM CDT 11:41 AM CDT Jaxon DEAN - DAVID POCT Performing Organization Address City/[facility] Phon e Number FV POINT OF CARE TEST, GLUCOSE POINT OF CARE TEST, GLUCOSE Glucose by meter (06/18/2014 8:21 AM CDT) P athologist Signature Glucose 80 60 - 99 POINT OF CARE mg/dL TEST, GLUCOSE Specimen Anatomical Collection Method Collection Time Receive d Time (Source) Location / / Volume Laterality 06/18/2014 8:21 AM 4 8:26 CDT AM CDT Jaxon HERNANDEZ POCT Performing Organization Address City/[facility] Phon e Number FV POINT OF CARE TEST, GLUCOSE POINT OF CARE TEST, GLUCOSE Blood component (06/18/2014 5:15 AM CDT) Patholo gist Method Time Signature Unit Number [id number] [facility] LAB Blood Red Blood [place] Component Cells [facility] Leukocyte [facility] LAB Reduced Division 00 [facility] LAB Status of Released to [place] Unit care unit [facility] LAB Specimen Anatomical Collection Method Collection Time Receive d Time (Source) Location / / Volume Laterality 06/18/2014 5:15 AM 4 5:30 CDT AM CDT Job Jorge MD LABORATORY Performing Organization Address City/State/ZIP Code Phon e Number M [facility] [address] [address] [facility] LAB (ABNORMAL) Potassium (06/18/2014 5:15 AM CDT) P athologist Signature Potassium 5.5 (H) 3.4 - 5.3 [place] mmol/L [facility] LAB Specimen Anatomical Collection Method Collection Time Receive d Time (Source) Location / / Volume Laterality Blood specimen 06/18/2014 5:15 AM 014 5:30 (specimen) CDT AM CDT Jaxon Buenrostro MD LAB - BLOOD ORDERABLES Performing Organization Address City/State/ZIP Code Phon e Number M [facility] [address] [phone] [facility] LAB (ABNORMAL) INR (06/18/2014 5:15 AM CDT) P athologist Signature INR 2.17 (H) 0.86 - 1.14 [facility] LAB Specimen Anatomical Collection Method Collection Time Receive d Time (Source) Location / / Volume Laterality Blood specimen 06/18/2014 5:15 AM 014 5:30 (specimen) CDT AM CDT Rand Benedict MD LAB - BLOOD ORDERABLES Performing Organization Address City/State/ZIP Code Phon e Number M [facility] [address] [phone] [facility] LAB ABO/Rh type and screen (06/18/2014 5:15 AM CDT) Patholo gist Method Time Signature Units Ordered 1 [facility] LAB ABO O [facility] RH(D) Pos [facility] Antibody Neg [place] Screen [facility] Test Valid [facility] LAB Specimen 06/21/2014 [place] Expires [facility] Crossmatch Red Blood [place] Cells [facility] LAB Specimen Anatomical Collection Method Collection Time Receive d Time (Source) Location / / Volume Laterality Blood specimen 06/18/2014 5:15 AM 014 5:30 (specimen) CDT AM CDT Job Jorge MD LAB - BLOOD BANK TEST ORDER Performing Organization Address City/[facility]/ZIP Code Phon e Number M [facility] [address] [place] [address] [facility] LAB (ABNORMAL) Glucose by meter (06/17/2014 9:41 [...] Signature Sodium 132 (L) 133 - 144 [place] mmol/L [facility] Potassium 6.3 (HH) 3.4 - 5.3 [place] mmol/L [facility] LAB Comment: Critical Value called to and read back b y [place] on [address] at 1742.SL Chloride 97 94 - 109 mmol/L [facility] LAB Carbon Dioxide 27 20 - 32 mmol/L [facility] LAB Anion Gap 8 6 - 17 mmol/L [facility] LAB Glucose 129 (H) 70 - 99 mg/dL [facility] LAB Comment: Effective 05/08/2014, the reference range for this assay has changed to reflect new instrumentation/methodology. Urea Nitrogen 62 (H) 7 - 30 mg/dL [facility] LAB Comment: Effective 05/08/2014, the reference range for this assay has changed to reflect new instrumentation/methodology. Creatinine 8.78 (H) 0.66 - 1.25 mg/dL [facility] LAB GFR Estimate 6 (L) >60 mL/min/1.7m2 [facility] LAB Comment: Non GFR Calc GFR Estimate If Black 8 (L) >60 mL/min/1.7m2 F [facility] LAB Comment: GFR Calc Calcium 8.6 8.5 - 10.1 mg/dL [facility] LAB Comment: Effective 05/08/2014, the reference range for this assay has changed to reflect new instrumentation/methodology. Specimen Anatomical Collection Method Collection Time Receive d Time (Source) Location / / Volume Laterality Blood specimen 06/17/2014 6:55 PM 014 7:16 (specimen) CDT PM CDT Wojciech Holman MD LAB - BLOOD ORDERABLES Performing Organization Address City/State/ZIP Code Phon e Number M [facility] [address] [address] [facility] LAB Magnesium (06/17/2014 6:00 PM CDT) P athologist Signature Magnesium 2.1 1.6 - 2.3 [place] mg/[facility] LAB Specimen Anatomical Collection Method Collection Time Receive d Time (Source) Location / / Volume Laterality 06/17/2014 6:00 PM 4 6:08 CDT PM CDT Job Jorge MD LAB - BLOOD ORDERABLES Performing Organization Address City/State/ZIP Code Phon e Number M [facility] [address] [address] [facility] LAB (ABNORMAL) Potassium (06/17/2014 6:00 PM CDT) athologist Signature Potassium 6.2 (HH) 3.4 - 5.3 [place] mmol/L [facility] LAB Comment: Critical Value called to and read back shireen Tyler on Sta 33 at 1825.SL Specimen Anatomical Collection Method Collection Time Receive d Time (Source) Location / / Volume Laterality Blood specimen 06/17/2014 6:00 PM 014 6:08 (specimen) CDT PM CDT Job Jorge MD LAB - BLOOD ORDERABLES Performing Organization Address City/[facility]/ZIP Code Phon e Number M [facility] [address] [place] [address] [facility] Glucose by meter (06/17/2014 4:46 PM CDT) athologist Signature Glucose 80 60 - 99 POINT OF CARE mg/dL TEST, GLUCOSE Specimen Anatomical Collection Method Collection Time Receive d Time (Source) Location / / Volume Laterality 06/17/2014 4:46 PM 4 4:51 CDT PM CDT Jaxon HERNANDEZ POCT Performing Organization Address City/[facility]/ZIP Code Phon e Number FV POINT OF CARE TEST, GLUCOSE POINT OF CARE TEST, GLUCOSE Glucose by meter (06/17/2014 11:54 AM CDT) athologist Signature Glucose 92 60 - 99 POINT OF CARE mg/dL TEST, GLUCOSE Specimen Anatomical Collection Method Collection Time Receive d Time (Source) Location / / Volume Laterality 06/17/2014 11:54 06/17/2014 AM CDT 11:56 AM CDT Jaxon HERNANDEZ POCT Performing Organization [...] the piriform s. Mild penetration. Otherwise normal. [place]: Premature spillage to the pirifo billy. Mild [...] the piriform s. Mild penetration. Otherwise normal. [place]: Premature spillage to the pirifo billy. Mild penetration. Otherwise normal. Honey: Premature spillage to the pirifor ms. Otherwise normal. Pudding: Normal. Semisolid: Normal. Solid: Not administered. This study only includes the cervical es ophagus. EVERARDO RAYMUNDO MD Alejandro Emerson MD IMG DIAGNOSTIC IMAGING ORDER NADIA (ABNORMAL) INR (06/17/2014 7:31 AM CDT) athologist Signature INR 1.93 (H) 0.86 - 1.14 [facility] LAB Specimen Anatomical Collection Method Collection Time Receive d Time (Source) Location / / Volume Laterality Blood specimen 06/17/2014 7:31 AM 014 7:35 (specimen) CDT AM CDT Rand Benedict MD LAB - BLOOD ORDERABLES Performing Organization Address City/State/ZIP Code Phon e Number M [facility] [address] [address] [facility] Phosphorus (06/17/2014 7:31 AM CDT) athologist Signature Phosphorus 2.6 2.5 - 4.5 [place] mg/dL [facility] LAB Specimen Anatomical Collection Method Collection Time Receive d Time (Source) Location / / Volume Laterality Blood specimen 06/17/2014 7:31 AM 014 7:35 (specimen) CDT AM CDT Alejandro Emerson MD LAB - BLOOD ORDERABLES Performing Organization Address City/State/ZIP Code Phon e Number M [facility] [address] [place] [address] [facility] LAB (ABNORMAL) Hemoglobin (06/17/2014 7:31 AM CDT) athologist Signature Hemoglobin 7.2 (L) 13.3 - 17.7 [place] g/dL [facility] Specimen Anatomical Collection Method Collection Time Receive d Time (Source) Location / / Volume Laterality Blood specimen 06/17/2014 7:31 AM 014 7:35 (specimen) CDT AM CDT Alejandro Emerson MD LAB - BLOOD ORDERABLES Performing Organization Address City/[facility]/ZIP Code Phon e Number M [facility] [address] [place] [address] [facility] LAB (ABNORMAL) Basic metabolic panel (06/17/2014 7:31 AM CDT) athologist Signature Sodium 135 133 - 144 [place] mmol/L [facility] Potassium 5.8 (H) 3.4 - 5.3 [place] mmol/L [facility] Chloride 99 94 - 109 [place] mmol/L [facility] Carbon Dioxide 28 20 - 32 [place] mmol/L [facility] Anion Gap 8 6 - 17 [place] mmol/L [facility] Glucose 82 70 - 99 [place] mg/dL [facility] Comment: Effective 05/08/2014, the reference range for this assay has changed to reflect new instrumentation/methodology. Urea Nitrogen 56 (H) 7 - 30 mg/dL [facility] Comment: Effective 05/08/2014, the reference range for this assay has changed to reflect new instrumentation/methodology. Creatinine 8.19 (H) 0.66 - 1.25 mg/dL [facility] GFR Estimate 7 (L) >60 mL/min/1.7m2 [facility] Comment: Non GFR Calc GFR Estimate If Black 8 (L) >60 mL/min/1.7m2 F [facility] Comment: GFR Calc Calcium 9.1 8.5 - 10.1 mg/dL [facility] Comment: Effective 05/08/2014, the reference range for this assay has changed to reflect new instrumentation/methodology. Specimen Anatomical Collection Method Collection Time Receive d Time (Source) Location / / Volume Laterality Blood specimen 06/17/2014 7:31 AM 014 7:35 (specimen) CDT AM CDT Alejandro Emerson MD LAB - BLOOD ORDERABLES Performing Organization Address City/[facility] Phon e Number M [facility] [address] [place] [address] [facility] Glucose by meter (06/17/2014 7:17 AM CDT) P athologist Signature Glucose 75 60 - 99 POINT OF CARE mg/dL TEST, GLUCOSE Specimen Anatomical Collection Method Collection Time Receive d Time (Source) Location / / Volume Laterality 06/17/2014 7:17 AM 4 7:21 CDT AM CDT Jaxon Buenrostro MD LAB - BEAKER POCT Performing Organization Address City/[facility]/ZIP Code Phon e Number FV POINT OF [...] LAB - BEAKER POCT Performing Organization Address City/[facility]/ZIP Code Phon e Number FV POINT OF [...] LAB - BEAKER POCT Performing Organization Address [facility] Code Phon e Number FV POINT [...] LAB - BEXIANG POCT Performing Organization Address [facility] Code Phon e Number FV POINT [...] LAB - BEXIANG POCT Performing Organization Address City/[facility] Code Phon e Number FV POINT OF CARE TEST, GLUCOSE POINT OF CARE TEST, GLUCOSE Glucose by meter (06/16/2014 7:30 AM CDT) P athologist Signature Glucose 62 60 - 99 POINT OF CARE mg/dL TEST, GLUCOSE Specimen Anatomical Collection Method Collection Time Receive d Time (Source) Location / / Volume Laterality 06/16/2014 7:30 AM 4 7:35 CDT AM CDT Jaxon Buenrostro MD LAB - BEXIANG POCT Performing Organization Address City/[facility] Code Phon e Number FV POINT OF CARE TEST, GLUCOSE POINT OF CARE TEST, GLUCOSE (ABNORMAL) INR (06/16/2014 7:30 AM CDT) P athologist Signature INR 1.88 (H) 0.86 - 1.14 [facility] Specimen Anatomical Collection Method Collection Time Receive d Time (Source) Location / / Volume Laterality Blood specimen 06/16/2014 7:30 AM 014 7:47 (specimen) CDT AM CDT Rand Benedict MD LAB - BLOOD ORDERABLES Performing Organization Address City/State/ZIP Code Phon e Number M [facility] [address] [place] [address] [facility] Platelet count (06/16/2014 7:30 AM CDT) athologist Signature Platelet Count 164 150 - 450 [place] 10e9/L [facility] Specimen Anatomical Collection Method Collection Time Receive d Time (Source) Location / / Volume Laterality Blood specimen 06/16/2014 7:30 AM 014 7:47 (specimen) CDT AM CDT Rand Benedict MD LAB - BLOOD ORDERABLES Performing Organization Address City/State/ZIP Code Phon e Number [facility] [address] [place] [address] [facility] (ABNORMAL) Glucose by meter (06/15/2014 10:02 PM CDT) athologist Signature Glucose 115 (H) 60 - 99 POINT OF CARE mg/dL TEST, GLUCOSE Specimen Anatomical Collection Method Collection Time Receive d Time (Source) Location / / Volume Laterality 06/15/2014 10:02 06/15/2014 PM CDT 10:06 PM CDT Jaxon Buenrostro MD LAB - BEAKER POCT Performing Organization Address City/State/ZIP Code Phon e Number FV POINT OF CARE TEST, GLUCOSE POINT OF CARE TEST, GLUCOSE (ABNORMAL) Glucose by meter (06/15/2014 5:29 PM CDT) athologist Signature Glucose 111 (H) 60 - 99 POINT OF CARE mg/dL TEST, GLUCOSE Specimen Anatomical Collection Method Collection Time Receive d Time (Source) Location / / Volume Laterality 06/15/2014 5:29 PM 4 5:35 CDT PM CDT Jaxon DEAN - BEXIANG POCT Performing Organization Address City/[facility]/ZIP Code Phon e Number FV POINT OF CARE TEST, GLUCOSE POINT OF CARE TEST, GLUCOSE (ABNORMAL) Glucose by meter (06/15/2014 12:55 PM CDT) P athologist Signature Glucose 116 (H) 60 - 99 POINT OF CARE mg/dL TEST, GLUCOSE Specimen Anatomical Collection Method Collection Time Receive d Time (Source) Location / / Volume Laterality 06/15/2014 12:55 06/15/2014 1:01 PM CDT PM CDT Jaxon DEAN - BEXIANG POCT Performing Organization Address City/[facility]/ZIP Code Phon e Number FV POINT OF CARE TEST, GLUCOSE POINT OF CARE TEST, GLUCOSE Glucose by meter (06/15/2014 7:57 AM CDT) P athologist Signature Glucose 95 60 - 99 POINT OF CARE mg/dL TEST, GLUCOSE Specimen Anatomical Collection Method Collection Time Receive d Time (Source) Location / / Volume Laterality 06/15/2014 7:57 AM 4 8:11 CDT AM CDT Jaxon DEAN - DAVID POCT Performing Organization Address [facility]/ZIP Code Phon e Number FV POINT OF CARE TEST, GLUCOSE POINT OF CARE TEST, GLUCOSE (ABNORMAL) INR (06/15/2014 7:34 AM CDT) P athologist Signature INR 1.63 (H) 0.86 - 1.14 [facility] Specimen Anatomical Collection Method Collection Time Receive d Time (Source) Location / / Volume Laterality Blood specimen 06/15/2014 7:34 AM 014 7:47 (specimen) CDT AM CDT Rand Benedict MD LAB - BLOOD ORDERABLES Performing Organization Address City/[facility]/ZIP [facility] Phon e Number M [facility] [address] [phone] [facility] (ABNORMAL) Hemoglobin (06/15/2014 7:34 AM CDT) athologist Signature Hemoglobin 7.6 (L) 13.3 - 17.7 [place] g/dL [facility] Specimen Anatomical Collection Method Collection Time Receive d Time (Source) Location / / Volume Laterality Blood specimen 06/15/2014 7:34 AM 014 7:47 (specimen) CDT AM CDT Alejandro Emerson MD LAB - BLOOD ORDERABLES Performing Organization Address City/State/ZIP Code Phon e Number M [facility] [address] [place] [address] [facility] (ABNORMAL) Renal panel (06/15/2014 7:34 AM CDT) athologist Signature Sodium 133 133 - 144 [place] mmol/L [facility] Potassium 5.9 (H) 3.4 - 5.3 [place] mmol/L [facility] Chloride 96 94 - 109 [place] mmol/L [facility] Carbon Dioxide 26 20 - 32 [place] mmol/L [facility] Anion Gap 11 6 - 17 [place] mmol/L [facility] Glucose 90 70 - 99 [place] mg/dL [facility] Comment: Effective 05/08/2014, the reference range for this assay has changed to reflect new instrumentation/methodology. Urea Nitrogen 65 (H) 7 - 30 mg/dL [facility] Comment: Effective 05/08/2014, the reference range for this assay has changed to reflect new instrumentation/methodology. Creatinine 7.87 (H) 0.66 - 1.25 mg/dL [facility] GFR Estimate 7 (L) >60 mL/min/1.7m2 [facility] Comment: Non GFR Calc GFR Estimate If Black 9 (L) >60 mL/min/1.7m2 F [facility] Comment: GFR Calc Calcium 9.0 8.5 - 10.1 mg/dL [facility] Comment: Effective 05/08/2014, the reference range for this assay has changed to reflect new instrumentation/methodology. Phosphorus 2.4 (L) 2.5 - 4.5 mg/dL [facility] Albumin 3.2 (L) 3.9 - 5.1 g/dL [facility] Specimen Anatomical Collection Method Collection Time Receive d Time (Source) Location / / Volume Laterality Blood specimen 06/15/2014 7:34 AM 014 7:47 (specimen) CDT AM CDT Alejandro Emerson MD LAB - BLOOD ORDERABLES Performing Organization Address City/State/ZIP Code Phon e Number [facility] [address] [place] [address] [facility] Glucose by meter (06/15/2014 2:40 AM CDT) P athologist Signature Glucose 82 60 - 99 POINT OF CARE mg/dL TEST, GLUCOSE Specimen Anatomical Collection Method Collection Time Receive d Time (Source) Location / / Volume Laterality 06/15/2014 2:40 AM 4 2:45 CDT AM CDT Jaxon DEAN - BEAKER [...] PM 4 9:55 CDT PM CDT Jaxon DEAN - BEAKER POCT Performing Organization Address City/State/ZIP Code Phon e Number FV POINT OF CARE TEST, GLUCOSE POINT OF CARE TEST, GLUCOSE Occult blood stool (06/14/2014 7:10 PM CDT) P athologist Signature Occult Blood Negative NEG [facility] Specimen Anatomical Collection Method Collection Time Receive d Time (Source) Location / / Volume Laterality Stool specimen STOOL SPECIMEN / 06/14/2014 7:10 PM 02/2014 7:16 (specimen) Unknown CDT PM CDT Alejandro Emerson MD LAB - STOOLS ORDERABLES Performing Organization Address City/State/ZIP Code Phon e Number M [facility] [address] [place] [address] [phone] [facility] Glucose by meter (06/14/2014 4:36 PM [...] LAB - BEAKER POCT Performing Organization Address City/[facility]/ZIP Code Phon e Number FV POINT OF CARE TEST, GLUCOSE POINT OF CARE TEST, GLUCOSE (ABNORMAL) INR (06/14/2014 7:25 AM CDT) athologist Signature INR 1.75 (H) 0.86 - 1.14 [facility] Specimen Anatomical Collection Method Collection Time Receive d Time (Source) Location / / Volume Laterality Blood specimen 06/14/2014 7:25 AM 014 7:35 (specimen) CDT AM CDT Rand Benedict MD LAB - BLOOD ORDERABLES Performing Organization Address City/State/ZIP Code Phon e Number [facility] [address] [place] [address] [facility] (ABNORMAL) Potassium (06/14/2014 7:25 AM CDT) athologist Signature Potassium 5.5 (H) 3.4 - 5.3 [place] mmol/L [facility] Specimen Anatomical Collection Method Collection Time Receive d Time (Source) Location / / Volume Laterality Blood specimen 06/14/2014 7:25 AM 014 7:35 (specimen) CDT AM CDT Alejandro Emerson MD LAB - BLOOD ORDERABLES Performing Organization Address City/State/ZIP Code Phon e Number [facility] [address] [place] [address] [phone] [facility] (ABNORMAL) Hemoglobin (06/14/2014 7:25 AM CDT) athologist Signature Hemoglobin 7.6 (L) 13.3 - 17.7 [place] g/dL [facility] Specimen Anatomical Collection Method Collection Time Receive d Time (Source) Location / / Volume Laterality Blood specimen 06/14/2014 7:25 AM 014 7:35 (specimen) CDT AM CDT Alejandro Emerson MD LAB - BLOOD ORDERABLES Performing Organization Address City/State/ZIP Code Phon e Number [facility] [address] [place] [address] [facility] Glucose by meter (06/14/2014 7:10 AM [...] LAB - BEXIANG POCT Performing Organization Address City/[facility]/ZIP Code Phon e Number FV POINT OF [...] PM CDT Jaxon Buenrostro MD LAB - BEXINAG POCT Performing Organization Address City/State/ZIP Code Phon [...] Signature INR 2.50 (H) 0.86 - 1.14 [facility] Specimen Anatomical Collection Method Collection Time Receive d Time (Source) Location / / Volume Laterality Blood specimen 06/13/2014 6:55 AM 014 7:08 (specimen) CDT AM CDT Rand Benedict MD LAB - BLOOD ORDERABLES Performing Organization Address [facility]/ZIP [facility] Phon e Number M [facility] [address] [phone] [facility] Platelet count (06/13/2014 6:55 AM CDT) athologist Signature Platelet Count 152 150 - 450 [place] 10e9/L [facility] Specimen Anatomical Collection Method Collection Time Receive d Time (Source) Location / / Volume Laterality Blood specimen 06/13/2014 6:55 AM 014 7:08 (specimen) CDT AM CDT Rand Benedict MD LAB - BLOOD ORDERABLES Performing Organization Address [facility]/ZIP [facility] Phon e Number M [facility] [address] [place] [address] [facility] (ABNORMAL) Hemoglobin (06/13/2014 6:55 AM CDT) athologist Signature Hemoglobin 7.6 (L) 13.3 - 17.7 [place] g/dL [facility] Specimen Anatomical Collection Method Collection Time Receive d Time (Source) Location / / Volume Laterality Blood specimen 06/13/2014 6:55 AM 014 7:08 (specimen) CDT AM CDT Alejandro Emerson MD LAB - BLOOD ORDERABLES Performing Organization Address City/State/ZIP Code Phon e Number [facility] [address] [place] [address] [facility] (ABNORMAL) Potassium (06/13/2014 6:55 AM CDT) athologist Signature Potassium 6.3 (HH) 3.4 - 5.3 [place] mmol/L [facility] Comment: Critical Value called to and read back shireen PULIDO (33) @ [phone] Specimen Anatomical Collection Method Collection Time Receive d Time (Source) Location / / Volume Laterality Blood specimen 06/13/2014 6:55 AM 014 7:08 (specimen) CDT AM CDT Alejandro Emerson MD LAB - BLOOD ORDERABLES Performing Organization Address City/State/ZIP Code Phon e Number [facility] [address] [phone] [facility] Glucose by meter (06/12/2014 9:19 PM [...] Glucose by meter (06/12/2014 4:56 PM CDT) athologist Signature Glucose 78 60 - [...] DEAN - BEXIANG POCT Performing Organization Address City/[facility]/ZIP Code Phon e Number FV POINT OF CARE TEST, GLUCOSE POINT OF CARE TEST, GLUCOSE (ABNORMAL) INR (06/12/2014 7:07 AM CDT) P athologist Signature INR 3.07 (H) 0.86 - 1.14 [facility] Specimen Anatomical Collection Method Collection Time Receive d Time (Source) Location / / Volume Laterality Blood specimen 06/12/2014 7:07 AM 014 7:13 (specimen) CDT AM CDT Rand Benedict MD LAB - BLOOD ORDERABLES Performing Organization Address [facility]/ZIP Code Phon e Number [facility] [address] [place] [address] [phone] [facility] (ABNORMAL) Glucose by meter (06/11/2014 9:30 PM CDT) P athologist Signature Glucose 101 (H) 60 - 99 POINT OF CARE mg/dL TEST, GLUCOSE Specimen Anatomical Collection Method Collection Time Receive d Time (Source) Location / / Volume Laterality 06/11/2014 9:30 PM 4 9:35 CDT PM CDT Jaxon DEAN - BEXIANG POCT Performing Organization Address City/[facility]/ZIP Code Phon e Number FV POINT OF CARE TEST, GLUCOSE POINT OF CARE TEST, GLUCOSE (ABNORMAL) Glucose by meter (06/11/2014 4:45 PM CDT) P athologist Signature Glucose 117 (H) 60 - 99 POINT OF CARE mg/dL TEST, GLUCOSE Specimen Anatomical Collection Method Collection Time Receive d Time (Source) Location / / Volume Laterality 06/11/2014 4:45 PM 4 4:50 CDT PM CDT Jaxon Preet Omlie MD LAB - BEAKER POCT Performing Organization Address City/[facility]/ZIP Code Phon e Number FV POINT OF CARE TEST, GLUCOSE POINT OF CARE TEST, GLUCOSE (ABNORMAL) Ferritin (06/11/2014 1:00 PM CDT) athologist Signature Ferritin 787 (H) 20 - 300 [place] ng/mL [facility] Specimen Anatomical Collection Method Collection Time Receive d Time (Source) Location / / Volume Laterality Blood specimen 06/11/2014 1:00 PM 014 1:28 (specimen) CDT PM CDT Alejandro Emerson MD LAB - BLOOD ORDERABLES Performing Organization Address City/[facility]/ZIP Code Phon e Number [facility] [address] [phone] [facility] (ABNORMAL) Iron and iron binding capacity (06/11/2014 1:00 PM CDT) athologist Signature Iron 26 (L) 35 - 180 [place] ug/dL [facility] Iron Binding 207 (L) 240 - 430 [place] Cap ug/dL [facility] Iron Saturation 13 (L) 15 - 46 % [facility] Specimen Anatomical Collection Method Collection Time Receive d Time (Source) Location / / Volume Laterality Blood specimen 06/11/2014 1:00 PM 014 1:28 (specimen) CDT PM CDT Alejandro Emerson MD LAB - BLOOD ORDERABLES Performing Organization Address [facility]/ZIP Code Phon e Number [facility] [address] [phone] [facility] (ABNORMAL) Hemoglobin (06/11/2014 1:00 PM CDT) athologist Signature Hemoglobin 8.1 (L) 13.3 - 17.7 [place] g/dL [facility] Specimen Anatomical Collection Method Collection Time Receive d Time (Source) Location / / Volume Laterality Blood specimen 06/11/2014 1:00 PM 014 1:28 (specimen) CDT PM CDT Alejandro Emerson MD LAB - BLOOD ORDERABLES Performing Organization Address City/State/ZIP Code Phon e Number [facility] [address] [place] [address] [phone] [facility] Potassium (06/11/2014 1:00 PM CDT) athologist Signature Potassium 3.7 3.4 - 5.3 [place] mmol/L [facility] Specimen Anatomical Collection Method Collection Time Receive d Time (Source) Location / / Volume Laterality Blood specimen 06/11/2014 1:00 PM 014 1:28 (specimen) CDT PM CDT Alejandro Emerson MD LAB - BLOOD ORDERABLES Performing Organization Address City/[facility]/ZIP Code Phon e Number [facility] [address] [phone] [facility] Glucose by meter (06/11/2014 12:04 PM CDT) athologist Signature Glucose 75 60 - 99 POINT OF CARE mg/dL TEST, GLUCOSE Specimen Anatomical Collection Method Collection Time Receive d Time (Source) Location / / Volume Laterality 06/11/2014 12:04 06/11/2014 PM CDT 12:11 PM CDT Jaxon DEAN - DAVID POCT Performing Organization Address City/[facility]/ZIP Code Phon e Number FV POINT OF CARE TEST, GLUCOSE POINT OF CARE TEST, GLUCOSE Glucose by meter (06/11/2014 7:05 AM CDT) athologist Signature Glucose 97 60 - 99 POINT OF CARE mg/dL TEST, GLUCOSE Specimen Anatomical Collection Method Collection Time Receive d Time (Source) Location / / Volume Laterality 06/11/2014 7:05 AM 4 7:11 CDT AM CDT Jaxon DEAN - BEXIANG POCT Performing Organization Address City/[facility]/ZIP Code Phon e Number FV POINT OF CARE TEST, GLUCOSE POINT OF CARE TEST, GLUCOSE (ABNORMAL) INR (06/11/2014 6:40 AM CDT) athologist Signature INR 2.65 (H) 0.86 - 1.14 [facility] Specimen Anatomical Collection Method Collection Time Receive d Time (Source) Location / / Volume Laterality Blood specimen 06/11/2014 6:40 AM 014 6:51 (specimen) CDT AM CDT Rand Benedict MD LAB - BLOOD ORDERABLES Performing Organization Address City/[facility]/ZIP [facility] Phon e Number [facility] [address] [place] [address] HOSPITAL [facility] Glucose by meter (06/10/2014 9:52 PM CDT) P athologist Signature Glucose 94 60 - 99 POINT OF CARE mg/dL TEST, GLUCOSE Specimen Anatomical Collection Method Collection Time Receive d Time (Source) Location / / Volume Laterality 06/10/2014 9:52 PM 4 9:55 CDT PM CDT Jaxon DEAN - BEXIANG POCT Performing Organization Address [facility] Phon e Number FV POINT OF [...] DEAN - BEXIANG POCT Performing Organization Address City/[facility]/ZIP Code Phon e Number FV POINT OF CARE TEST, GLUCOSE POINT OF CARE TEST, GLUCOSE Glucose by meter (06/10/2014 11:55 AM CDT) P athologist Signature Glucose 80 60 - 99 POINT OF CARE mg/dL TEST, GLUCOSE Specimen Anatomical Collection Method Collection Time Receive d Time (Source) Location / / Volume Laterality 06/10/2014 11:55 06/10/2014 AM CDT 12:01 PM CDT Jaxon DEAN - DAVID POCT Performing Organization Address City/[facility]/ZIP [facility] Phon e Number FV POINT OF CARE [...] LAB - BEAKER POCT Performing Organization Address City/[facility]/ZIP Code Phon e Number FV POINT OF CARE TEST, GLUCOSE POINT OF CARE TEST, GLUCOSE (ABNORMAL) INR (06/10/2014 7:13 AM CDT) P athologist Signature INR 2.67 (H) 0.86 - 1.14 [facility] Specimen Anatomical Collection Method Collection Time Receive d Time (Source) Location / / Volume Laterality Blood specimen 06/10/2014 7:13 AM 014 7:17 (specimen) CDT AM CDT Rand Benedict MD LAB - BLOOD ORDERABLES Performing Organization Address City/State/ZIP [facility] Phon e Number [facility] [address] [place] [address] [phone] [facility] (ABNORMAL) CBC with platelets (06/10/2014 7:13 AM CDT) Analysis Performed At Patho logist Time Signature WBC 6.3 4.0 - 11.0 [place] 10e9/L [facility] RBC Count 2.89 (L) 4.4 - 5.9 [place] 10e12/L [facility] Hemoglobin 7.3 (L) 13.3 - [place] 17.7 g/dL [facility] Hematocrit 24.3 (L) 40.0 - [place] 53.0 % [facility] MCV 84 78 - 100 [place] fl [facility] MCH 25.3 (L) 26.5 - [place] 33.0 pg [facility] MCHC 30.0 (L) 31.5 - [place] 36.5 g/dL [facility] RDW 18.1 (H) 10.0 - [place] 15.0 % [facility] Platelet Count 105 (L) 150 - 450 [place] 10e9/L [facility] Specimen Anatomical Collection Method Collection Time Receive d Time (Source) Location / / Volume Laterality Blood specimen 06/10/2014 7:13 AM 014 7:17 (specimen) CDT AM CDT Chi Brunson MD LAB - BLOOD ORDERABLES Performing Organization Address City/State/ZIP Code Phon e Number [facility] [address] [place] [address] [facility] (ABNORMAL) Renal panel (06/10/2014 7:13 AM CDT) P athologist Signature Sodium 129 (L) 133 - 144 [place] mmol/L [facility] Potassium 5.2 3.4 - 5.3 [place] mmol/L [facility] Chloride 97 94 - 109 [place] mmol/L [facility] Carbon Dioxide 26 20 - 32 [place] mmol/L [facility] Anion Gap 6 6 - 17 [place] mmol/L [facility] Glucose 75 70 - 99 [place] mg/dL [facility] Comment: Effective 05/08/2014, the reference range for this assay has changed to reflect new instrumentation/methodology. Urea Nitrogen 57 (H) 7 - 30 mg/dL [facility] Comment: Effective 05/08/2014, the reference range for this assay has changed to reflect new instrumentation/methodology. Creatinine 7.75 (H) 0.66 - 1.25 mg/dL [facility] GFR Estimate 7 (L) >60 mL/min/1.7m2 [facility] Comment: Non GFR Calc GFR Estimate If Black 9 (L) >60 mL/min/1.7m2 F [facility] Comment: GFR Calc Calcium 8.4 (L) 8.5 - 10.1 mg/dL [facility] Comment: Effective 05/08/2014, the reference range for this assay has changed to reflect new instrumentation/methodology. Phosphorus 2.1 (L) 2.5 - 4.5 mg/dL [facility] Albumin 2.7 (L) 3.9 - 5.1 g/dL [facility] Specimen Anatomical Collection Method Collection Time Receive d Time (Source) Location / / Volume Laterality Blood specimen 06/10/2014 7:13 AM 014 7:17 (specimen) CDT AM CDT Chi Brunson MD LAB - BLOOD ORDERABLES Performing Organization Address City/State/ZIP Code Phon e Number [facility] [address] [place] [address] [facility] Glucose by meter (06/10/2014 1:58 AM CDT) P athologist Signature Glucose 86 60 - 99 POINT OF CARE mg/dL TEST, GLUCOSE Specimen Anatomical Collection Method Collection Time Receive d Time (Source) Location / / Volume Laterality 06/10/2014 1:58 AM 4 2:06 CDT AM CDT Jaxon Buenrostro MD LAB - BEAKER POCT Performing Organization Address City/State/ZIP Code Phon e Number FV POINT OF CARE TEST, GLUCOSE POINT OF CARE TEST, GLUCOSE Potassium (06/10/2014 12:40 AM CDT) P athologist Signature Potassium 5.1 3.4 - 5.3 [place] mmol/L [facility] Specimen Anatomical Collection Method Collection Time Receive d Time (Source) Location / / Volume Laterality Blood specimen 06/10/2014 12:40 4 (specimen) AM CDT 12:42 AM CDT Chi Brunson MD LAB - BLOOD ORDERABLES Performing Organization Address City/State/ZIP Code Phon e Number M [facility] [address] [place] [address] [phone] [facility] Glucose by meter (06/09/2014 9:17 PM CDT) P athologist Signature Glucose 88 60 - 99 POINT OF CARE mg/dL TEST, GLUCOSE Specimen Anatomical Collection Method Collection Time Receive d Time (Source) Location / / Volume Laterality 06/09/2014 9:17 PM 4 9:21 CDT PM CDT Jaxon DEAN - BEXIANG POCT Performing Organization Address City/State/ZIP Code Phon e Number FV POINT OF CARE TEST, GLUCOSE POINT OF CARE TEST, GLUCOSE (ABNORMAL) Potassium (06/09/2014 8:45 PM CDT) P athologist Signature Potassium 6.0 (H) 3.4 - 5.3 [place] mmol/L [facility] Specimen Anatomical Collection Method Collection Time Receive d Time (Source) Location / / Volume Laterality Blood specimen 06/09/2014 8:45 PM 014 8:47 (specimen) CDT PM CDT Chi Brunson MD LAB - BLOOD ORDERABLES Performing Organization Address City/[facility]/ZIP Code Phon e Number [facility] [address] [phone] [facility] Glucose by meter (06/09/2014 5:13 PM CDT) P athologist Signature Glucose 82 60 - 99 POINT OF CARE mg/dL TEST, GLUCOSE Specimen Anatomical Collection Method Collection Time Receive d Time (Source) Location / / Volume Laterality 06/09/2014 5:13 PM 4 5:16 CDT PM CDT Jaxon DEAN - BEAKER POCT Performing Organization Address City/[facility]/ZIP Code Phon e Number FV POINT OF CARE TEST, GLUCOSE POINT OF CARE TEST, GLUCOSE (ABNORMAL) Potassium (06/09/2014 3:04 PM CDT) P athologist Signature Potassium 5.9 (H) 3.4 - 5.3 [place] mmol/L [facility] Specimen Anatomical Collection Method Collection Time Receive d Time (Source) Location / / Volume Laterality Blood specimen 06/09/2014 3:04 PM 014 3:10 (specimen) CDT PM CDT Chi Brunson MD LAB - BLOOD ORDERABLES Performing Organization Address City/[facility]/ZIP Code Phon e Number [facility] [address] [place] [address] [facility] Glucose by meter (06/09/2014 12:30 PM CDT) P athologist Signature Glucose 88 [...] GLUCOSE (ABNORMAL) Potassium (06/09/2014 10:57 AM CDT) athologist Signature Potassium 5.7 (H) 3.4 - 5.3 [place] mmol/L [facility] Specimen Anatomical Collection Method Collection Time Receive d Time (Source) Location / / Volume Laterality Blood specimen 06/09/2014 10:57 4 (specimen) AM CDT 10:59 AM CDT Rand Benedict MD LAB - BLOOD ORDERABLES Performing Organization Address City/State/ZIP Code Phon e Number M [facility] [address] [place] [address] [phone] [facility] Glucose by meter (06/09/2014 8:10 AM CDT) athologist Signature Glucose 87 60 - 99 POINT OF CARE mg/dL TEST, GLUCOSE Specimen Anatomical Collection Method Collection Time Receive d Time (Source) Location / / Volume Laterality 06/09/2014 8:10 AM 4 8:21 CDT AM CDT Jaxon Buenrostro MD LAB - BEAKER POCT Performing Organization Address City/State/ZIP Code Phon e Number FV POINT OF CARE TEST, GLUCOSE POINT OF CARE TEST, GLUCOSE (ABNORMAL) INR (06/09/2014 7:40 AM CDT) P athologist Signature INR 2.01 (H) 0.86 - 1.14 [facility] Specimen Anatomical Collection Method Collection Time Receive d Time (Source) Location / / Volume Laterality Blood specimen 06/09/2014 7:40 AM 014 7:42 (specimen) CDT AM CDT Rand Benedict MD LAB - BLOOD ORDERABLES Performing Organization Address City/State/ZIP Code Phon evette Bishop [facility] [address] [place] [phone] [facility] (ABNORMAL) Basic metabolic panel (06/09/2014 7:40 AM CDT) athologist Signature Sodium 135 133 - 144 [place] mmol/L [facility] Potassium 5.9 (H) 3.4 - 5.3 [place] mmol/L [facility] Chloride 100 94 - 109 [place] mmol/L [facility] Carbon Dioxide 30 20 - 32 [place] mmol/L [facility] Anion Gap 5 (L) 6 - 17 [place] mmol/L [facility] Glucose 79 70 - 99 [place] mg/dL [facility] Comment: Effective 05/08/2014, the reference range for this assay has changed to reflect new instrumentation/methodology. Urea Nitrogen 38 (H) 7 - 30 mg/dL [facility] Comment: Effective 05/08/2014, the reference range for this assay has changed to reflect new instrumentation/methodology. Creatinine 6.19 (H) 0.66 - 1.25 mg/dL [facility] GFR Estimate 10 (L) >60 mL/min/1.7m2 [facility] Comment: Non GFR Calc GFR Estimate If Black 12 (L) >60 mL/min/1.7m2 F [facility] Comment: GFR Calc Calcium 8.8 8.5 - 10.1 mg/dL [facility] Comment: Effective 05/08/2014, the reference range for this assay has changed to reflect new instrumentation/methodology. Specimen Anatomical Collection Method Collection Time Receive d Time (Source) Location / / Volume Laterality Blood specimen 06/09/2014 7:40 AM 014 7:42 (specimen) CDT AM CDT Chi Brunson MD LAB - BLOOD ORDERABLES Performing Organization Address City/State/ZIP Code Phon e Martha Bishop [facility] [address] [place] [phone] [facility] (ABNORMAL) CBC with platelets (06/09/2014 7:40 AM CDT) Analysis Performed At Patho logist Time Signature WBC 6.1 4.0 - 11.0 [place] 10e9/L [facility] RBC Count 3.20 (L) 4.4 - 5.9 [place] 10e12/L [facility] Hemoglobin 8.0 (L) 13.3 - [place] 17.7 g/dL [facility] Hematocrit 27.3 (L) 40.0 - [place] 53.0 % [facility] MCV 85 78 - 100 [place] fl [facility] MCH 25.0 (L) 26.5 - [place] 33.0 pg [facility] MCHC 29.3 (L) 31.5 - [place] 36.5 g/dL [facility] RDW 18.0 (H) 10.0 - [place] 15.0 % [facility] Platelet Count 112 (L) 150 - 450 [place] 10e9/L [facility] Specimen Anatomical Collection Method Collection Time Receive d Time (Source) Location / / Volume Laterality Blood specimen 06/09/2014 7:40 AM 014 7:42 (specimen) CDT AM CDT Chi Brunson MD LAB - BLOOD ORDERABLES Performing Organization Address City/State/ZIP Code Phon e Number M [facility] [address] [place] [address] [phone] [facility] Glucose by meter (06/08/2014 8:51 PM [...] LAB - BEAKER POCT Performing Organization Address City/[facility]/ZIP Code Phon e Number FV POINT OF [...] LAB - BEAKER POCT Performing Organization Address City/[facility] Phon e Number FV POINT OF CARE TEST, GLUCOSE POINT OF CARE TEST, GLUCOSE Glucose by meter (06/08/2014 6:58 AM CDT) P athologist Signature Glucose 75 60 - 99 POINT OF CARE mg/dL TEST, GLUCOSE Specimen Anatomical Collection Method Collection Time Receive d Time (Source) Location / / Volume Laterality 06/08/2014 6:58 AM 4 7:01 CDT AM CDT Jaxon Buenrostro MD LAB - BEAKER POCT Performing Organization Address City/[facility] Phon e Number FV POINT OF CARE TEST, GLUCOSE POINT OF CARE TEST, GLUCOSE (ABNORMAL) INR (06/08/2014 6:43 AM CDT) P athologist Signature INR 1.49 (H) 0.86 - 1.14 [facility] Specimen Anatomical Collection Method Collection Time Receive d Time (Source) Location / / Volume Laterality Blood specimen 06/08/2014 6:43 AM 014 6:50 (specimen) CDT AM CDT Rand Benedict MD LAB - BLOOD ORDERABLES Performing Organization Address City/[facility] Phon e Number [facility] [address] [phone] [facility] (ABNORMAL) CBC with platelets (06/08/2014 6:43 AM CDT) Analysis Performed At Patho logist Time Signature WBC 6.8 4.0 - 11.0 [place] 10e9/L [facility] RBC Count 3.12 (L) 4.4 - 5.9 [place] 10e12/L [facility] Hemoglobin 7.9 (L) 13.3 - [place] 17.7 g/dL [facility] Hematocrit 26.6 (L) 40.0 - [place] 53.0 % [facility] MCV 85 78 - 100 [place] fl [facility] MCH 25.3 (L) 26.5 - [place] 33.0 pg [facility] MCHC 29.7 (L) 31.5 - [place] 36.5 g/dL [facility] RDW 17.9 (H) 10.0 - [place] 15.0 % [facility] Platelet Count 118 (L) 150 - 450 [place] 10e9/L [facility] Specimen Anatomical Collection Method Collection Time Receive d Time (Source) Location / / Volume Laterality Blood specimen 06/08/2014 6:43 AM 014 6:50 (specimen) CDT AM CDT Chi Brunson MD LAB - BLOOD ORDERABLES Performing Organization Address City/State/ZIP Code Phon e Number M [facility] [address] [address] [phone] [facility] (ABNORMAL) Potassium (06/08/2014 6:43 AM CDT) P athologist Signature Potassium 6.2 (HH) 3.4 - 5.3 [place] mmol/L [facility] Comment: Critical Value called to and read back shireen [place] IN 33 AT 0705 Specimen Anatomical Collection Method Collection Time Receive d Time (Source) Location / / Volume Laterality Blood specimen 06/08/2014 6:43 AM 014 6:50 (specimen) CDT AM CDT Chi Brunson MD LAB - BLOOD ORDERABLES Performing Organization Address [facility] Phon e Number M [facility] [address] [place] [address] [facility] Vancomycin level (06/08/2014 6:43 AM CDT) P athologist Signature Vancomycin 27.9 mg/L [facility] Comment: Traditional Dosing therapeutic Range: ?Trough 8-20 mg/L ?Peak 20-50 mg/L Specimen Anatomical Collection Method Collection Time Receive d Time (Source) Location / / Volume Laterality Blood specimen 06/08/2014 6:43 AM 014 6:50 (specimen) CDT AM CDT Emi Joana [facility] LAB - BLOOD ORDERABLES Performing Organization Address [facility] Phon e Number M [facility] [address] [phone] [facility] (ABNORMAL) Glucose by meter (06/07/2014 9:49 PM CDT) P athologist Signature Glucose 137 (H) 60 - 99 POINT OF CARE mg/dL TEST, GLUCOSE Specimen Anatomical Collection Method Collection Time Receive d Time (Source) Location / / Volume Laterality 06/07/2014 9:49 PM 4 CDT 10:01 PM CDT Jaxon DEAN - DAVID POCT Performing Organization Address [facility]/ZIP Code Phon e Number FV POINT OF [...] 5:11 CDT PM CDT Jaxon DEAN - BEXIANG POCT Performing Organization Address [facility]/ZIP Code Phon e Number FV POINT OF CARE TEST, GLUCOSE POINT OF CARE TEST, GLUCOSE (ABNORMAL) Glucose by meter (06/07/2014 11:53 AM CDT) P athologist Signature Glucose 112 (H) 60 - 99 POINT OF CARE mg/dL TEST, GLUCOSE Specimen Anatomical Collection Method Collection Time Receive d Time (Source) Location / / Volume Laterality 06/07/2014 11:53 06/07/2014 AM CDT 12:16 PM CDT Jaxon Buenrostro MD LAB - BEAKER POCT Performing Organization Address City/[facility]/ZIP Code Phon e Number FV POINT OF [...] 8:16 CDT AM CDT Jaxon DEAN - BEAKER POCT Performing Organization Address City/[facility] Phon e Number FV POINT OF CARE TEST, GLUCOSE POINT OF CARE TEST, GLUCOSE (ABNORMAL) INR (06/07/2014 7:41 AM CDT) P athologist Signature INR 1.34 (H) 0.86 - 1.14 [facility] Specimen Anatomical Collection Method Collection Time Receive d Time (Source) Location / / Volume Laterality Blood specimen 06/07/2014 7:41 AM 014 7:53 (specimen) CDT AM CDT Rand Benedict MD LAB - BLOOD ORDERABLES Performing Organization Address City/[facility]/ZIP Code Phon e Number M [facility] [address], [place] [address] [facility] [facility] (ABNORMAL) CBC with platelets (06/07/2014 7:41 AM CDT) Analysis Performed At Patho logist Time Signature WBC 3.8 (L) 4.0 - 11.0 [place] 10e9/L [facility] RBC Count 3.25 (L) 4.4 - 5.9 [place] 10e12/L [facility] Hemoglobin 8.2 (L) 13.3 - [place] 17.7 g/dL [facility] Hematocrit 28.3 (L) 40.0 - [place] 53.0 % [facility] MCV 87 78 - 100 [place] fl [facility] MCH 25.2 (L) 26.5 - [place] 33.0 pg [facility] MCHC 29.0 (L) 31.5 - [place] 36.5 g/dL [facility] RDW 17.3 (H) 10.0 - [place] 15.0 % [facility] Platelet Count 133 (L) 150 - 450 [place] 10e9/L [facility] Specimen Anatomical Collection Method Collection Time Receive d Time (Source) Location / / Volume Laterality Blood specimen 06/07/2014 7:41 AM 014 7:53 (specimen) CDT AM CDT Chi Brunson MD LAB - BLOOD ORDERABLES Performing Organization Address City/State/ZIP Code Phon e Number M [facility] [address] [phone] [facility] Potassium (06/07/2014 7:41 AM CDT) athologist Signature Potassium 4.8 3.4 - 5.3 [place] mmol/L [facility] Specimen Anatomical Collection Method Collection Time Receive d Time (Source) Location / / Volume Laterality Blood specimen 06/07/2014 7:41 AM 014 7:53 (specimen) CDT AM CDT Chi Brunson MD LAB - BLOOD ORDERABLES Performing Organization Address City/State/ZIP Code Phon e Number M [facility] [address] [phone] [facility] (ABNORMAL) Glucose by meter (06/07/2014 7:21 AM CDT) P athologist Signature Glucose 118 (H) 60 - 99 POINT OF CARE mg/dL TEST, GLUCOSE Specimen Anatomical Collection Method Collection Time Receive d Time (Source) Location / / Volume Laterality 06/07/2014 7:21 AM 4 7:26 CDT AM CDT Jaxon DEAN - DAVID [...] AM 4 2:25 CDT AM CDT Jaxon DEAN - DAVID POCT Performing Organization Address [facility]/ZIP Code Phon e Number FV POINT OF [...] DEAN - DAVID POCT Performing Organization Address City/[facility]/ZIP Code Phon e Number FV POINT OF CARE TEST, GLUCOSE POINT OF CARE TEST, GLUCOSE (ABNORMAL) Glucose by meter (06/06/2014 7:59 PM CDT) P athologist Signature Glucose 151 (H) 60 - 99 POINT OF CARE mg/dL TEST, GLUCOSE Specimen Anatomical Collection Method Collection Time Receive d Time (Source) Location / / Volume Laterality 06/06/2014 7:59 PM 4 8:00 CDT PM CDT Jaxon HERNANDEZ POCT Performing Organization Address City/[facility]/ZIP Code Phon e Number FV POINT OF CARE TEST, GLUCOSE POINT OF CARE TEST, GLUCOSE (ABNORMAL) Glucose by meter (06/06/2014 3:50 PM CDT) P athologist Signature Glucose 151 (H) 60 - 99 POINT OF CARE mg/dL TEST, GLUCOSE Specimen Anatomical Collection Method Collection Time Receive d Time (Source) Location / / Volume Laterality 06/06/2014 3:50 PM 4 CDT 12:11 AM CDT Jaxon Buenrostro MD LAB - BEAKER POCT Performing Organization Address City/[facility] Phon e Number FV POINT OF [...] LAB - BEAKER POCT Performing Organization Address [facility] Phon e Number FV POINT OF CARE TEST, GLUCOSE POINT OF CARE TEST, GLUCOSE (ABNORMAL) Basic metabolic panel (06/06/2014 8:30 AM CDT) P athologist Signature Sodium 129 (L) 133 - 144 [place] mmol/L [facility] Potassium 4.8 3.4 - 5.3 [place] mmol/L [facility] Chloride 93 (L) 94 - 109 [place] mmol/L [facility] Carbon Dioxide 25 20 - 32 [place] mmol/L [facility] Anion Gap 11 6 - 17 [place] mmol/L [facility] Glucose 93 70 - 99 [place] mg/dL [facility] Comment: Effective 05/08/2014, the reference range for this assay has changed to reflect new instrumentation/methodology. Urea Nitrogen 59 (H) 7 - 30 mg/dL [facility] Comment: Effective 05/08/2014, the reference range for this assay has changed to reflect new instrumentation/methodology. Creatinine 8.94 (H) 0.66 - 1.25 mg/dL [facility] GFR Estimate 6 (L) >60 mL/min/1.7m2 [facility] Comment: Non GFR Calc GFR Estimate If Black 8 (L) >60 mL/min/1.7m2 F [facility] Comment: GFR Calc Calcium 8.1 (L) 8.5 - 10.1 mg/dL [facility] Comment: Effective 05/08/2014, the reference range for this assay has changed to reflect new instrumentation/methodology. Specimen Anatomical Collection Method Collection Time Receive d Time (Source) Location / / Volume Laterality Blood specimen 06/06/2014 8:30 AM 014 9:05 (specimen) CDT AM CDT Chi Brunson MD LAB - BLOOD ORDERABLES Performing Organization Address City/State/ZIP Code Phon e Number M [facility] [address] [place] [address] [facility] (ABNORMAL) INR (06/06/2014 8:30 AM CDT) P athologist Signature INR 1.43 (H) 0.86 - 1.14 [facility] Specimen Anatomical Collection Method Collection Time Receive d Time (Source) Location / / Volume Laterality Blood specimen 06/06/2014 8:30 AM 014 9:04 (specimen) CDT AM CDT Rand Benedict MD LAB - BLOOD ORDERABLES Performing Organization Address City/State/ZIP Code Phon e Number M [facility] [address] [place] [address] [phone] [facility] Hemoglobin A1c (06/06/2014 8:30 AM CDT) P athologist Signature Hemoglobin A1C 5.1 4.3 - 6.0 [facility] Specimen Anatomical Collection Method Collection Time Receive d Time (Source) Location / / Volume Laterality Blood specimen 06/06/2014 8:30 AM 014 9:04 (specimen) CDT AM CDT Rand Benedict MD LAB - BLOOD ORDERABLES Performing Organization Address City/State/ZIP Code Phon e Number M [facility] [address] [place] [address] [facility] Vancomycin level (06/06/2014 8:30 AM CDT) P athologist Signature Vancomycin 17.9 mg/L [facility] Comment: Traditional Dosing therapeutic Range: ?Trough 8-20 mg/L ?Peak 20-50 mg/L Specimen Anatomical Collection Method Collection Time Receive d Time (Source) Location / / Volume Laterality Blood specimen 06/06/2014 8:30 AM 014 9:04 (specimen) CDT AM CDT Viridiana Quinonez [facility] LAB - BLOOD ORDERABLES Performing Organization Address City/State/ZIP [facility] Phon e Number M [facility] [address] [place] [address] [facility] Glucose by meter (06/06/2014 6:56 AM CDT) P athologist Signature Glucose 84 60 - 99 POINT OF CARE mg/dL TEST, GLUCOSE Specimen Anatomical Collection Method Collection Time Receive d Time (Source) Location / / Volume Laterality 06/06/2014 6:56 AM 4 7:01 CDT AM CDT Jaxon DEAN - DAVID POCT Performing Organization Address City/[facility]/ZIP Code Phon e Number FV POINT OF [...] 06/05/2014 PM CDT 11:30 PM CDT Jaxon Buenrostro MD LAB - [...] 06/06/2014 7:05 PM CDT AM CDT Jaxon DEAN - DAVID POCT Performing Organization Address City/[facility]/ZIP Code Phon e Number FV POINT OF [...] LAB - BEXIANG POCT Performing Organization Address [facility]/ZIP Code Phon e Number FV POINT OF CARE TEST, GLUCOSE POINT OF CARE TEST, GLUCOSE (ABNORMAL) Glucose by meter (06/05/2014 11:51 AM CDT) P athologist Signature Glucose 121 (H) 60 - 99 POINT OF CARE mg/dL TEST, GLUCOSE Specimen Anatomical Collection Method Collection Time Receive d Time (Source) Location / / Volume Laterality 06/05/2014 11:51 06/05/2014 AM CDT 11:55 AM CDT Jaxon DEAN - DAVID POCT Performing Organization Address City/[facility]/ZIP Code Phon e Number FV POINT OF [...] Signature Glucose 106 (H) 70 - 99 [place] mg/dL [facility] Comment: Effective 05/08/2014, the reference range for this assay has changed to reflect new instrumentation/methodology. Specimen Anatomical Collection Method Collection Time Receive d Time (Source) Location / / Volume Laterality 06/05/2014 7:39 AM 4 7:45 CDT AM CDT Rand Benedict MD LAB - BLOOD ORDERABLES Performing Organization Address City/[facility]/ZIP Code Phon e Number M [facility] [address] [phone] [facility] (ABNORMAL) INR (06/05/2014 7:39 AM CDT) athologist Signature INR 1.68 (H) 0.86 - 1.14 [facility] Specimen Anatomical Collection Method Collection Time Receive d Time (Source) Location / / Volume Laterality Blood specimen 06/05/2014 7:39 AM 014 7:45 (specimen) CDT AM CDT Rand Benedict MD LAB - BLOOD ORDERABLES Performing Organization Address City/[facility]/ZIP Code Phon e Number [facility] [address] [place] [address] [facility] (ABNORMAL) Platelet count (06/05/2014 7:39 AM CDT) athologist Signature Platelet Count 127 (L) 150 - 450 [place] 10e9/L [facility] Specimen Anatomical Collection Method Collection Time Receive d Time (Source) Location / / Volume Laterality Blood specimen 06/05/2014 7:39 AM 014 7:45 (specimen) CDT AM CDT Rand Benedict MD LAB - BLOOD ORDERABLES Performing Organization Address City/State/ZIP Code Phon e Number M [facility] [address] [place] [address] [phone] [facility] Potassium (06/05/2014 7:39 AM CDT) athologist Signature Potassium 4.3 3.4 - 5.3 [place] mmol/L [facility] Specimen Anatomical Collection Method Collection Time Receive d Time (Source) Location / / Volume Laterality Blood specimen 06/05/2014 7:39 AM 014 7:45 (specimen) CDT AM CDT Rand Benedict MD LAB - BLOOD ORDERABLES Performing Organization Address City/State/ZIP Code Phon e Number M [facility] [address] [place] [address] [facility] (ABNORMAL) Platelet count (06/04/2014 8:12 PM CDT) athologist Signature Platelet Count 123 (L) 150 - 450 [place] 10e9/L [facility] Specimen Anatomical Collection Method Collection Time Receive d Time (Source) Location / / Volume Laterality Blood specimen 06/04/2014 8:12 PM 014 8:15 (specimen) CDT PM CDT Rand Benedict MD LAB - BLOOD ORDERABLES Performing Organization Address City/State/ZIP Code Phon e Number M [facility] [address] [place] [address] [facility] Glucose by meter (06/04/2014 4:51 PM [...] Component Value Ref Test Analysis Performed At [facility] Range Method Time Signature Specimen Wound Left Thigh [facility] Description MICROBIOLOGY Special Specimen [place] Requests collected in [facility] LAB Culture Micro Moderate growth [facility] Staphylococcus MICROBIOLOGY aureus (A) Micro Report FINAL 06/07/2014 [facility] Status MICROBIOLOGY Organism: Moderate growth [facility] Staphylococcus [...] Organization Address City/State/ZIP Code Phon e Number [id number] [place] [address] [facility] MICROBIOLOGY [facility] Gram stain (06/04/2014 3:35 PM CDT) Component Value Ref Test Analysis Performed At [facility] Range Method Time Signature Specimen Wound Left [...] MICRO GENERAL ORDERABL ES Performing Organization Address City/[facility]/ZIP Code Phon e Number [facility] [address] [place], [place] [phone] [place] [address] MICROBIOLOGY Anaerobic bacterial culture (06/04/2014 3:35 PM CDT) Component Value Ref Test Analysis [facility] Range Method Time Signature Specimen Wound Left [facility] Description Thigh MICROBIOLOGY Special Received in [facility] Requests anaerobic MICROBIOLOGY tubes. Culture Micro No anaerobes [facility] isolated MICROBIOLOGY Micro Report FINAL [facility] Status 06/11/2014 MICROBIOLOGY Specimen Anatomical Collection Method Collection Time Receive d Time (Source) Location / / Volume Laterality 06/04/2014 3:35 PM 4 3:57 CDT PM CDT Jaxon Buenrostro MD LAB - MICRO GENERAL ORDERABL ES Performing Organization Address City/[facility]/ZIP Code Phon e Number [facility] [address] MICROBIOLOGY Glucose by meter (06/04/2014 3:21 PM CDT) P athologist Signature Glucose 78 60 - 99 POINT OF CARE mg/dL TEST, GLUCOSE Specimen Anatomical Collection Method Collection Time Receive d Time (Source) Location / / Volume Laterality 06/04/2014 3:21 PM 4 3:35 CDT PM CDT Jaxon DEAN - BEAKER POCT Performing Organization Address City/[facility]/ZIP Code Phon e Number FV POINT OF CARE TEST, GLUCOSE POINT OF CARE TEST, GLUCOSE Glucose by meter (06/04/2014 1:49 PM CDT) P athologist Signature Glucose 78 60 - 99 POINT OF CARE mg/dL TEST, GLUCOSE Specimen Anatomical Collection Method Collection Time Receive d Time (Source) Location / / Volume Laterality 06/04/2014 1:49 PM 4 1:55 CDT PM CDT Jaxon DEAN - BEXIANG POCT Performing Organization Address City/State/ZIP Code Phon e Number FV POINT OF CARE TEST, GLUCOSE POINT OF CARE TEST, GLUCOSE (ABNORMAL) INR (06/04/2014 1:15 PM CDT) athologist Signature INR 1.93 (H) 0.86 - 1.14 [facility] Specimen Anatomical Collection Method Collection Time Receive d Time (Source) Location / / Volume Laterality Blood specimen 06/04/2014 1:15 PM 014 1:23 (specimen) CDT PM CDT Jaxon Buenrostro MD LAB - BLOOD ORDERABLES Performing Organization Address City/State/ZIP Code Phon e Number M [facility] [address] [place] [address] [facility] Potassium (06/04/2014 1:15 PM CDT) athologist Signature Potassium 3.5 3.4 - 5.3 [place] mmol/L [facility] Specimen Anatomical Collection Method Collection Time Receive d Time (Source) Location / / Volume Laterality Blood specimen 06/04/2014 1:15 PM 014 1:23 (specimen) CDT PM CDT Jaxon Buenrostro MD LAB - BLOOD ORDERABLES Performing Organization Address City/State/ZIP Code Phon e Number [facility] [address] [place] [address] [facility] documented in this encounter Visit Diagnoses Not on filedocumented in this encounter Administered Medications Inactive Administered Medications - up to 3 most recent administrations Medication Order MAR Action Action Date Dose Rate Site lidocaine 1% 20 mL + Given 06/04/2014 4:00 PM 15 mLs Operative sodium bicarbonate 8.4% CDT S ite/Surgical Site 4 mL PRN, Starting on Tue06/04/14 at 1600, Intra-procedure sodium chloride 0.9% (bag) Given 06/04/2014 4:09 PM 2,000 mLs Operative irrigation CDT Site/Surgical S ite PRN, Starting on Tue06/04/14 at 1609, Intra-procedure documented in this encounter Active and Recently Administered Medications Times are shown in CDT. Scheduled Medication Order 06/18/2014 06/19/2014 06/20/2014 B iydfnkp-S-ymnip acid (NEPHROCAPS) capsule 1 mg (CANC ELED) 2044 (Given - Provider: Felipa Daugherty, LINDA)2199 (Canceled Entry - Provider: Felipa Daugherty RN) 2199 (Given - Provider: Wen Mueller RN) 1 mg (1 capsule), Oral, AT BEDTIME, First dose on Tue06/04/14 at 2200 bisacodyl (DULCOLAX) EC tablet 10 mg (CANCELED) 181 ( Given - Provider: Tahmina Pantoja RN [...] Marichuy Bishop RN)1203 (Given - Provider: Marichuy Bishop RN)1750 (Given - Provider: Marichuy Bishop, LINDA) 1148 (Not Given - Provider: Marichuy Bishop RN - Reason: Other - Comment: in dialysis)1300 (Given - Provider: Marichuy Bishop, LINDA) 667 mg, Oral, 3 TIMES DAILY WITH MEALS, First dose on 06/15/14 at 1800, Best if given with meals. Take with meals. cholecalciferol (vitamin D) tablet 1,000 Units (CANCEL ED) 0913 (Not Given - Provider: Tahmina Pantoja RN - Reason: NPO) 0812 (Given - Provider: Marichuy Bishop, LINDA) 1301 (Given - Provider: Marichuy Bishop RN - Comment: in dialysis) 1,000 Units, Oral, DAILY, First dose on Tue06/04/14 at 1800 epoetin mauricio (EPOGEN,PROCRIT) injection 8,000 Units (C OMPLETED) 1824 (Not Given - Provider: Josue Byrnes RN - Reason: Other - Comment: off run early not able to give. dr. jorge made aware o.k. for today) 1459 (Given - Provider: Stacy Del Rio, LINDA - Comment: given on dialysis today for missed dose 06/19) 8,000 Units, Intravenous, ONCE, Tue at 1015, For 1 dose, Given during each dialysis (per request), Dialysis heparin (porcine) injection 500 Units (COMPLETED) 0830 (Given - Provider: Roberta Schmitz RN) 500 Units, Hemodialysis Machine, ONCE IN DIALYSIS, Tue06/20/14 at 0730, For 1 dose, LOADING DOSE, Dialysis heparin sodium PF injection 5,000 Units (CANCELED) 010 4 (Given - Provider: Mo Warner RN)0921 (Not Given - Provider: Tahmina Pantoja RN - Reason: Other - Comment: Held for fistulagram)1814 (Given - Provider: Tahmina Pantoja RN) 0107 (Given - Provider: Mo vitale RN)0816 (Given - Provider: Marichuy Bishop RN)1750 (Given - Provider: Marichuy Bishop, LINDA) 0000 (Given - Provider: Mo Warner RN)1302 (Given - Provider: Marichuy Bishop, LINDA - Comment: in dialysis) 5,000 Units, Subcutaneous, EVERY 8 HOURS , First dose on 06/15/14 at 1445, D/c when INR ~ 2.5. High concentration HEParin. Not for line flush or cath care. losartan (COZAAR) tablet 100 mg 0950 (Given - Provider: Eve Pantoja RN) 0813 (Given - Provider: Marichuy Bishop RN) 1301 (Given - Provider: Marichuy Bishop RN - Comment: in dialysis) 100 mg, Oral, DAILY, First dose on Padmaja 06/13/14 at 1000 metoprolol (LOPRESSOR) tablet 100 mg (CANCELED) 0950 ( Given - Provider: Tahmina Pantoja RN)2043 (Given - Provider: Felipa Daugherty, LINDA) 08 (Given - Provider: Marichuy Bishop, LINDA)2025 (Given - Provider: Wen Mueller, LINDA) 1309 (Given - Provider: Marichuy Bishop, LINDA - Comment: in dialysis) 100 mg, Oral, 2 TIMES DAILY, First dose on Tue06/11/14 at 0945, Hold for SBP < 100 or HR < 60 minoxidil (LONITEN) tablet 5 mg 0950 (Given - Provider : Tahmina Pantoja RN)2043 (Given - Provider: Felipa Daugherty RN) 08 (Given - Provider: Marichuy Bishop, LINDA)2025 (Given - Provider: Wen Mueller, LINDA) 1300 (Given - Provider: Marichuy Bishop, LINDA - Comment: in dialysis) 5 mg, Oral, 2 TIMES DAILY, First dose on 06/15/14 at 2100, Hold for SBP <140 nafcillin IV 1 g vial to attach to IVPB (CANCELED) 001 7 (Given - Provider: Mo Warner RN)0544 (Given - Provider: Mo Warner RN)1209 (Given - Provider: Tahmina Pantoja RN)1814 (Given - Provider: Tahmina Pantoja RN) 0014 (Given - Provider: Mo vitale, LINDA)0553 (Given - Provider: Mo Warner RN)1740 (Given - Provider: Marichuy Bishop, LINDA - Comment: in dialysis, just returned now)2347 (Given - Provider: Mo Warner RN) 0542 (Given - Provider: Mo vitale, LINDA)1304 (Given - Provider: Marichuy Bishop, LINDA) 1 g, Intravenous, EVERY 6 HOURS, First d ose on 06/08/14 at 0845, Indications: Skin and Soft Tissue Infection, 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 simvastatin (ZOCOR) tablet 40 mg (CANCELED) 2044 (Give n - Provider: Samphou Thammavongsa, RN)2200 (Canceled Entry - Provider: Felipa Daugherty RN) 2200 (Given - Provider: Wen Mueller RN) 40 mg, Oral, AT BEDTIME, First dose on Tue06/04/14 at 2200 sodium chloride (PF) 0.9% PF flush 3 mL (CANCELED) 054 3 (Given - Provider: Mo Warner, LINDA)1410 (Given - Provider: Laureen Mendiola RN)2050 (Given - Provider: Felipa Daugherty RN)2200 (Canceled Entry - Provider: Felipa Daugherty RN) 0555 (Given - Provider: Mo vitale RN)1742 (Given - Provider: Marichuy Bishop, LINDA)2348 (Given - Provider: Mo Warner, LINDA) 0544 (Given - Provider: Mo Warner, LINDA)1306 (Given - Provider: Marichuy Bishop RN) 3 [...] Dialysis warfarin (COUMADIN) tablet 2.5 mg (COMPLETED) 1815 (Gi corey - Provider: Tahmina Pantoja, LINDA) [...] M achine, at 0.5 mL/hr, CONTINUOUS, Starting Padmaja 06/20/14 at 0730, DURING DIALYSIS TREATMENT, Dialysis PRN Medication Order 06/18/2014 06/19/2014 06/20/2014 guaiFENesin-dextromethorphan (ROBITUSSIN DM) 100-10 MG/5ML syrup 5 mL (CANCELED) 2055 (Given - Provider: Felipa Daugherty, LINDA) 5 mL, Oral, EVERY 4 HOURS PRN, [...] D) 0017 (Given - Provider: Mo Warner RN)5 (Given - Provider: Felipa Daugherty RN) 0547 (Given - Provider: Mo Warner RN) 1-2 lozenge, Buccal, EVERY 1 HOUR PRN, o ther, dry/sore throat without fever , Starting 06/10/14 at 2131 documented in this encounter Care Teams Manager University Relationship Specialty Start Date End Date Preet Huff PCP - General 06/24/11 documented as of this encounter
--- OUTSIDE RECORDS SUMMARY | 2022-09-01 20:21 | XMS_ITS | Encounter Summary ---
:1965 Author Organization [place] Address [address] [facility] [place] [address] Care Team Providers Name Role Phone Preet Huff Primary Care Provider Reason for Visit Auth/Cert - Closed Specialty Diagnoses / Procedures Referred By Contact Refer red To Contact Surgery Diagnoses dehiscence surgical incision Sh Periop Services Procedures REVISION FISTULA ARTERIOVENOUS LOWER EXTREMITY COMBINED IRRIGATION AND DEBRIDEMENT LOWER EXTREMITY [address] [place] [address] Phone: Referral ID Status Reason Start Date Expiration Date Visits Requ ested Visits Authorized [id number] Closed 1 1 Encounter Details Date Type Department Care Team Description 06/08/2014 Anesthesia Event M [facility] Lucy Baca [place] CHALKER SOLES BLOW MOLD OPERATOR Care [address] [place] [address] [phone] Anesthesia Record Procedure Summary Procedure Name Responsible Anesthesiologist Anesthesia Start Ti me Anesthesia Stop Time IV START 06/08/14222406/08/142234 Events Date Time Event Comment 06/08/20142224 An Start 2234 An Stop Electronically s igned by Lucy Baca on June 08, 2014 10:48 PM 3 Quick Note Called to [facility] Rm 335 for IV start for vascular insufficiency pe r Dr Rosa Saravia No medications on file. Agents No [...] Monserrat Blake RN Johns on, Lisa D, music teacher Vascular Arteriovenous fistula; 08/03/12 1948 by 1120 by Access Right; Thigh Megan Ochoa RN Incision/Surgical Site 08/08/12; 1527; Right; 08/08/12 1527 by 1 11/18/15 1120 by Groin; 09/17/16; 1120 Platon, Macie Hans Ochoa Mamaril, RN RN Incision/Surgical Site 08/09/12; 1401; [...] veins small) Incision/Surgical Site 06/20/13; 1001; Left; 09/11/13 1001 by 1120 by Groin; 09/17/16; 1120 Macie Amin L isa D, Mamaril, RN music teacher Vascular Arteriovenous graft; 06/20/13 1646 by 06/25 1120 by Access Left Megan Ochoa RN Peripheral IV 06/28/13; 20 G, 1 1/4 06/28/13 0000 by 06/20/14 1429 by inch; Right; Accessory Tunde Salinas Ranz au, Angela L, cephalic; Tolerated well RN RN Venous [...] 09/17/16; Esha Garzon, Megan Mcguire, 1120 RN Packing Thigh; (Aquacel AG); 06/04/14 1618 by 06/09/14 0 000 by 06/09/14 Esha Garzon, Stephanie Kuhn RN Peripheral IV 06/06/14; 1345; 22 G; 06/06/14 1345 by 06/09/14 0126 by Left; Hand; Mendiola, Laureen L, RN Nellie Corona R, Chlorhexidine; Tolerated RN well Negative Pressure Wound 06/07/14; 1446; MD; Leg; 06/07/14 1446 b y 11/21/15 1005 by Therapy Left; 11/21/15; 1005 Sb Davila, LINDA Riggins, Osmani Hitchcock RN Peripheral IV 18 G; Right; Accessory 06/08/14 2245 by 06/10/14 2200 by cephalic; Alcohol; Fozia Singh obdulia Injectable; Tolerated M, CHALKER SOLES CN P well documented in this encounter Social History [...] on filedocumented in this encounter Care Teams Two Way Radio Technician Relationship Specialty Start Date End Date Preet Huff PCP - General 06/24/11 documented as of this encounter
--- OUTSIDE RECORDS SUMMARY | 2022-09-01 20:21 | XMS_ITS | Encounter Summary ---
:1965 Author Organization [place] Address [address] [facility] [place] [address] Care Team Providers Name Role Phone Preet Huff Primary Care Provider Reason for Visit Auth/Cert - Closed Specialty Diagnoses / Procedures Referred By Contact Refer red To Contact Surgery Diagnoses dehiscence surgical incision Sh Periop Services Procedures REVISION FISTULA ARTERIOVENOUS LOWER EXTREMITY COMBINED IRRIGATION AND DEBRIDEMENT LOWER EXTREMITY [address] [place] [address] Phone: Referral ID Status Reason Start Date Expiration Date Visits Requ ested Visits Authorized [id number] Closed 1 1 Encounter Details Date Type Department Care Team Description 06/04/2014 Anesthesia Event M [facility] Mo Slater MD XXX XXX [address] [place] [address] [place] [facility] Lesley Novoa APRN OIL AND GAS LEASE PUMPER [address] [place] [id number] Services [address] [place] [address] Anesthesia Record Procedure Summary Procedure Name Responsible Anesthesia Start Anesthesia Stop Anesthesiologist Time Time ROGELIO CHAVEZ Peter, MD 06/04/14 1444 06/04/14 1614 T,AND REPAIR LEFT INFECTED PROFUNDA FEMORIS ARTERY TO SUPERFICIAL FEMORAL VEIN LOOP PTFE GRAFT (Left: Leg) Events Date Time Event Comment 06/04/2014 1316 1444 An Start 1445 An Start Data 1525 MAC to Gen Per surgeon requ est prior to start of case 1525 An Induction 1526 An LMA 1527 AN START SEVO 1530 AN INCISION 1558 AN END SEVO 1601 An Emergence 1605 LMA Removed 1607 an stop data 1614 An Stop Electronically s igned by Dru Mcgowan on June 04, 2014 4:20 PM Name Total fentanyl 50mcg/mL 75 mcg lidocaine 2% 100 mg midazolam 1mg/mL 2 mg ondansetron 2mg/mL 4 mg phenylephrine 0.1mg/mL 300 mcg propofol 10mg/mL 200 mg propofol 10mg/mL 207.65 mg ceFAZolin (ANCEF) IVPB 2 g (pre-mix) 2 g sodium chloride 0.9% 100 mL Agents Name O2 Air Exp Sevoflurane O2 Delivery Device Ins [...] Groin; 09/17/16; 1120 Monserrat Blake, Megan Castanon, toll relief operator Vascular Arteriovenous fistula; 08/03/12 1948 by [...] Macie Amin L isa D, LINDA Wood toll relief operator Vascular Arteriovenous graft; 06/20/13 1646 by 1206/25 1120 by Access Left Megan Ochoa, RN Peripheral IV 06/28/13; 20 G, 1 10/1306/28/13 0000 by 06/20/14 1429 by inch; Right; Accessory Okpala, Tunde O, Milagro harris, Marichuy L, cephalic; Tolerated well RN RN Venous Sheath 06/28/13; 1550; 6 Fr; 06/28/13 1550 by 09/17/16 1120 by Other (Comment) (right Hans Pérez, Megan Jolley, fistula); Right; F LINDA Fuentes; 09/17/16; 1120 Arterial Sheath 06/28/13; 1600; 6 Fr; 06/28/13 1600 by 09/17/16 1120 by Other (Comment) (right Hans Pérez, Megan Jolley, thigh fistula); Right; F LINDA Fuentes; 09/17/16; 1120 Incision/Surgical Site 07/30/14; 0948; Left; 05/08/14 0948 by 1652 by Leg; 06/07/14; 1652 Ama Walter, Jhon Ferrell RN RN Peripheral IV 06/04/14; 1448; 20 G; 06/04/14 1448 by 06/06/14 0333 by Right; Hand; Alcohol; Dru Mcgowan Heiden, K elsy, LINDA Injectable; Tolerated GYM MANAGER OIL AND GAS LEASE PUMPER well Retired Non-Surgical 06/04/14; 1526; 5; 06/04/14 1526 by 4 1605 by Airway laryngeal mask airway; Dru Mcgowan, Dru Mcgowan, Mo Hill MDA; End of GYM MANAGER OIL AND GAS LEASE PUMPER GYM MANAGER CR NA therapy Incision/Surgical Site 06/04/14; 1600; Left, 06/04/14 1600 by 1120 by Upper; Thigh; 09/17/16; Esha Garzon, Megan Mcguire, 1120 RN Packing Thigh; (Aquacel AG); 06/04/14 1618 by 06/09/14 0 000 by 06/09/14 Esha Garzon, Stephanie Kuhn RN documented in this encounter Social History Tobacco Use Types Packs/Day Years Used Date Smoking Tobacco: Never Smokeless Tobacco: Never Alcohol Use Standard Drinks/Week Comments No 0 (1 standard drink = 0.6 oz pure alcoho l) Sex Assigned at Date Recorded Not on file documented as of this encounter OR Notes Anesthesia Postprocedure Evaluation - Mo Slater MD - 06/04/2014 5:17 PM CDT Anesthesia Post-Evaluation Note Patient: Herminio Victor Patient location: PACU Procedure(s) Performed: Procedure(s) with comments: REVISION FISTULA ARTERIOVENOUS LOWER EXTREMITY - IRRIGATION,DEBRIDEMENT,AND REPAIR LEFT INFECTED PROFUNDA FEMORIS ARTERY TO SUPERFICIAL FEMORAL VEIN LOOP PTFE GRAFT COMBINED IRRIGATION AND DEBRIDEMENT LOWER EXTREMITY Anesthesia type: MAC Post Op Diagnosis: infected pseudoaneurysm. Post Op Diagnosis Additional Comments:No value filed. Patient Condition Respiratory Function (RR / SpO2 / Airway Patency): Satisfactory Cardiac Function (HR / Rhythm / BP): Satisfactory Mental Status: Satisfactory Temperature: Satisfactory Pain Control: Satisfactory PONV: None Beta-Jh Therapy: None indicated Hydration Status: Satisfactory Last Vitals: Filed Vitals: 06/04/14 1630 06/04/14 1645 06/04/14 1700 BP: 139/74 138/73 159/76 Temp: Resp: 08 20 10 SpO2: 100% 100% 100% Additional Comments: Anesthesia Preprocedure Evaluation - Mo Slater MD - 06/04/2014 1:14 PM CDT Anesthesia Evaluation . Pt has had prior anesthetic. Type: General and MAC No history of anesthetic complications ROS/MED HX ENT/Pulmonary: (+)sleep apnea, doesn't use CPAP , . . Neurologic: Cardiovascular: (+) hypertension . Taking blood thinners : . [...] systems: cardiovascular and pulmonary Airway Mallampati: III Dental (+) upper dentures and lower dentures Cardiovascular Pulmonary Anesthesia Plan ASA Score: 2 . Plan for MAC - Routine analgesia and antiemetics to be used for post-operative care. Anesthetic plan, risks, benefits and alternatives discussed with: patient or termite control representative. History & Physical Review History and physical reviewed; no interval change. . documented in this encounter Miscellaneous Notes Anesthesia Care Transfer Note - Dru Mcgowan APRN CRNA - 06/04/2014 4:19 PM CDT Anesthesia Care Transfer Note Patient: Herminio Victor Transferred to: PACU Patient vital signs: stable Airway: none Pt exhibits spontaneous respirations, follows commands, suctioned, LMA removed, exchanging well, transferred to pacu with O2 @ 10L via mask, all monitors and alarms on, VSS, patent IV, report and transfer of care to RN. documented in this encounter Plan of Treatment Not on filedocumented as of this encounter Visit Diagnoses Not on filedocumented in this encounter Administered Medications Inactive Administered Medications - up to 3 most recent administrations Medication Order MAR Action Action Date Dose Rate Site 0.9 % sodium chloride IV solution New Bag 06/04/2014 2:48 PM CDT CONTINUOUS PRN, Anesthesia Intra-op, Starting on Tue06/04/14 at 1448, Until Tue06/04/14 at 1620 ceFAZolin (ANCEF) IVPB 2 g (pre-mix) Given 06/04/2014 3:03 PM CDT 2 g Routine, 2 g, Intravenous, PRE-OP/PRE-PROCEDURE, Starting on Tue06/04/14 at 1303, For 1 dose, Give first dose within 1 hour PRIOR to incision. If patient weight is greater than or equal to 120 kg change dose to 3 g., Indications: Perioperative Pharmacoprophylaxis, Pre-procedure fentaNYL (SUBLIMAZE) injection Given 06/04/2014 3:46 PM CDT 25 mcg PRN, moderate to severe pain, Starting on Tue06/04/14 at 1450, Anesthesia Intra-op Given 06/04/2014 2:50 PM CDT 50 mcg lidocaine injection 2% (MDV) Given 06/04/2014 3:25 PM CDT 100 mg PRN, Starting on Tue06/04/14 at 1525, Anesthesia Intra-op midazolam (VERSED) injection Given 06/04/2014 2:50 PM CDT 2 mg PRN, anxiety, Starting on Tue06/04/14 at 1450, Anesthesia Intra-op ondansetron (ZOFRAN) injection Given 06/04/2014 3:56 PM CDT 4 mg PRN, nausea, vomiting, Administer over 2-5 Minutes, Starting on Tue06/04/14 at 1556, Anesthesia Intra-op phenylephrine injection Given 06/04/2014 3:57 PM CDT 50 mcg PRN, Starting on Tue06/04/14 at 1531, Anesthesia Intra-op Given 06/04/2014 3:52 PM CDT 50 mcg Given 06/04/2014 3:49 PM CDT 50 mcg propofol (DIPRIVAN) New Bag 06/04/2014 2:52 PM CDT 75 mcg/kg/min 3 7.8 mL/hr injection 10 mg/mL vial CONTINUOUS PRN, Starting on Tue06/04/14 at 1452, Anesthesia Intra-op propofol (DIPRIVAN) injection 10 mg/mL v ial Given 06/04/2014 3:27 PM CDT 100 mg PRN, Starting on Tue06/04/14 at 1525, Anesthesia Intra-op Given 06/04/2014 3:25 PM CDT 100 mg documented in this encounter Care Teams Hot Plate Press Operator Relationship Specialty Start Date End Date Preet Huff PCP - General 06/24/11 documented as of this encounter
--- OUTSIDE RECORDS SUMMARY | 2022-09-01 20:22 | XMS_ITS | Encounter Summary ---
:1965 Author Organization [place] Address [address] [facility] [place] [address] Care Team Providers Name Role Phone Preet Huff Primary Care Provider Reason for Visit Reason Onset Date Comments Post-Op - Vascular 04/25/2014 Encounter Details Date Type Department Care Team Description 04/25/2014 Telephone [facility] Jaxon Saravia Post-Op - Vascular [facility] Mk [place] MD [address] [place] [address] [address] [address] (Wo rk) Social History Tobacco Use Types Packs/Day Years Used Date Smoking Tobacco: Never Smokeless Tobacco: Never Alcohol Use Standard Drinks/Week Comments No 0 (1 standard drink = 0.6 oz pure alcoho l) Sex Assigned at Date Recorded Not on file documented as of this encounter Miscellaneous Notes Telephone Encounter - Jaxon Saravia MD - 04/25/2014 1:36 PM CDT I have reviewed the left groin PTFE loop graft ultrasound on Herminio Victor . He does have a pseudoaneurysm on the lateral aspect of the graft that the dialysis unit can palpate. This is a wide neck and therefore it is unlikely to respond to thrombin injection. The rest of the graft is patent though there is a stable narrowing at the arterial inflow that is not affecting the function of the graft We will therefore plan to surgically excised the pseudoaneurysm repair the defect in the graft. Dueto the patient's baseline mental status this may need to be performed under general anesthetic with a overnight stay in the hospital. This is been discussed with the dialysis unit we'll discuss it further with the patient's aunt. Jaxon Saravia Telephone Encounter - Jovana Wilkinson RN - 04/25/2014 1:27 PM CDT I called Philippe Bruce [phone], to inquire about Herminio's dialysis access. Hx: 06/20/13left profunda femoris artery to superficial femoral vein loop PTFE bypass graft. Pt was in Tuesday04/24/[address] Jack so I wanted to confirm the functioning of pts access. Teo reports thatpadmini's access is functioning well but he does have aneurysmal bulging that pt is concerned about. I reviewed with Dr. Saravia, given the fact that there is pseudoaneurysm (3.5 x 1.8 1.8 cm with PSA neck 1.9 mm length and 5.9 mm width) that nurse is able to see/palpate, he recommends surgical repair. I informed Teo that our dental financial coordinator will call her to make further arrangements. Jovana Wilkinson RN CVN documented in this encounter Plan of Treatment Not on filedocumented as of this encounter Visit Diagnoses Not on filedocumented in this encounter Care Teams Head Of Precision Targeting Relationship Specialty Start Date End Date Preet Huff PCP - General 06/24/11 documented as of this encounter
--- OUTSIDE RECORDS SUMMARY | 2022-09-01 20:22 | XMS_ITS | Encounter Summary ---
:1965 Author Organization [place] Address [address] [facility] [place] [address] Care Team Providers Name Role Phone Preet Huff Primary Care Provider Reason for Visit Auth/Cert - Closed Specialty Diagnoses / Procedures Referred By Contact Refer red To Contact Surgery Diagnoses LEFT FEMORAL PTFE LOOP GRAFT PSEUDO ANEURYSM Sh Periop Services Procedures <REVISION FISTULA ARTERIOVENOUS LOWER EXTREMITY> [address] [place] [address] Phone: Referral ID Status Reason Start Date Expiration Date Visits Requ ested Visits Authorized [id number] Closed 1 1 Encounter Details Date Type Department Care Team Description 05/08/2014 Surgery [facility] Rober Buenrostro LEFT FEM ORAL PTFE LOOP [place] [facility] MD Preet GRAFT PSEUDOANEURYSM Services [address] REPAIR [address] [place] [address] [place] [address] [phone] Surgery Details Date/Time Status Location OR Service Patient Case Class Case Type Trauma Class Case? 05/08/14 7:30 Posted Z SH SD SD 21 General Same Day AM Surgery Panel 1 Procedure LRB Anes Op Region Wound Class Commen ts LEFT FEMORAL PTFE LOOP Left MAC Leg I-Clean LE FT FEMORAL PTFE LOOP GRAFT PSEUDOANEURYSM REPAIR GRAFT PSEUDOANEURYSM REPAIR Surgeon Surgeon Role Service Panel Rober Buenrostro MD Primary General 1 Rand Segovia MD Resident - Assisting 1 Special Needs Does not verbalize per Dr Hanna office documented in this encounter Social History Tobacco Use Types Packs/Day Years Used Date Smoking Tobacco: Never Smokeless Tobacco: Never Alcohol Use Standard Drinks/Week Comments No 0 (1 standard drink = 0.6 oz pure alcoho l) Sex Assigned at Date Recorded Not on file documented as of this encounter Last Filed Vital Signs Vital Sign Reading Time Taken Comments Blood Pressure 148/62 05/08/2014 6:20 AM CDT Pulse - - Temperature 36.2 ??C (97.2 ??F) 05/08/2014 6:20 AM CDT Respiratory Rate 16 05/08/2014 6:20 AM CDT Oxygen Saturation 100% 05/08/2014 6:20 AM CDT Inhaled Oxygen Concentration - - Weight 83.8 kg (184 lb 11.2 oz) 05/08/2014 6:20 AM CDT Height 162.6 cm (5' 4.02) 05/08/2014 6:20 AM CDT Body Mass Index 31.69 05/08/2014 6:20 AM CDT documented in this encounter Discharge Instructions Discharge InstructionsMarce Blue RN - 05/08/2014 10:21 AM CDT Same Day Surgery Discharge Instructions [...] hours. You must make arrangements to have someone stay with you for at least 24 hours after [...] know so they can address your concerns. ARTERIAL VENOUS FISTULA Discharge Instructions Dr. Rober Buenrostro * In 48 hours, remove dressing. Leave steri strips in place until they fall off by themselves--usually 7-10 days. * Okay to shower once dressing is removed. * No bathing / soaking for 4 weeks. * Follow-up with Dr. Buenrostro in 2 weeks. RESTART COUMADIN TOMORROW documented in this encounter Medications at Time of Discharge Medication Sig Dispensed Refills Start Date End Date Cholecalciferol (VITAMIN Take 2,000 Units by 0 D3 PO) mouth every evening b wsebgyo-B-jtuyg acid Take 1 capsule by 0 03/04/2016 [...] 0 08/09/2015 GM/15ML solution daily as needed LISINOPRIL PO Take 20 mg by mouth 1/2 of 40 mg tablet 0 06/20/2014 ON - - Tuesday Metoprolol Tartrate Take 200 mg by mouth 0 03/05/2016 (LOPRESSOR PO) 2 times daily In the AM and at Noon. Takes on M, W, F, [place] (Non-dialysis days only) (Takes 2 x 100mg tablet = 200mg) warfarin (COUMADIN) 5 MG Take 0.5 tablets by 90 tablet 1 12/16/2015 tabletIndications: Renal mouth daily. dialysis device, implant, or graft complication documented as of this encounter Nursing Notes Heidi Esposito RN - 05/08/2014 6:55 AM CDT Pt had dialysis yesterday. Heidi Esposito RN - 05/08/2014 6:40 AM CDT Pre-op assessment done Julio Cesar answered my questions and said his Aunt Thelma sets up his meds for him. Took normal meds yesterday. 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 PROCEDURES: 1. Excision left arterial limb loop PTFE thigh pseudoaneurysm. a. Bovine patch angioplasty. ANESTHESIA: Local with intravenous supplementation. PREOPERATIVE MEDICATIONS: Ancef 2 grams IV. INDICATIONS: Julio Cesar Victor is a 49-year-old patient who is on chronic hemodialysis at the [facility]. He has no upper extremity access. We placed a left thigh loop 7 mm PTFE graft with the arterial limb located laterally. This has been functioning well. However, at an access site on the art erial lateral limb, a pseudoaneurysm developed that was very easily palpable. This did not thromboseand with a very short neck, it was felt that surgical repair was indicated. The patient is on chronic Coumadin anticoagulation. The pseudoaneurysm measures 3.5 x 1.8 x 1.8 cm. There is a questionable narrowing in the proximal portion of the graft with the rest being widely patent. PROCEDURE: The patient was brought to the operating room. The left groin - thigh - leg were prepped and draped in the usual fashion. Ioban was placed over this area. Timeout was called and the sites were identified. The wounds were infiltrated with 1% lidocaine with bicarbonate. VASCULAR EXPOSURE: An incision was made over the lateral aspect of the proximal thigh/groin at the arterial inflow. We avoided the pseudoaneurysm and dissected the graft free proximally and distally tothis to allow placement of a vascular clamp. 3000 units of intravenous heparin were given. PSEUDOANEURYSM REPAIR: Vascular clamps were applied. We then dissected to expose the central portionof the graft where the pseudoaneurysm was located. We entered into the pseudoaneurysm. We had to readjust our venous outflow clamp for good hemostasis due to back-bleeding. We excised the pseudoaneurysm capsule. We found a defect in the graft that measured approximately 0.8 x 0.8 cm. There were multiple adjacent needle holes from the access that needed to be excised leaving a defect now measuring approximately 1 cm in length and involving 1/3 of the wall of the graft. I was able to pass a 5 mm dilator up the arterial inflow with no difficulty, followed by heparinized saline solution. The outflow accepted a 6 mm dilator with no difficulty (7 mm size graft). We debrided the graft down to a point where there were very few needle holes still present. All thrombus was removed. BOVINE PATCH ANGIOPLASTY: The large size of the defect would not allow primary closure. We thereforeselected a bovine graft. This was trimmed in an oval fashion and sewn to the defect with running 6-0Prolene suture. On the distal venous outflow, there were several needle holes still present and we pledgeted our suture line with an additional small segment of bovine graft. With release of the vascular clamps, we had a strong pulse and good hemostasis with several interrupted 6-0 Prolene sutures being placed. DESCRIPTION OF PROCEDURE: The patient was on Coumadin with an INR greater than 2.2. We did use electrocautery for hemostasis. Wound was infiltrated with 0.5% Marcaine for postop analgesia. Subcutaneoustissue was closed with interrupted 3- 0 Vicryl. Skin was closed with 4-0 Monocryl in subcuticular fashion, followed by surgical glue and a gauze dressing. The patient tolerated the procedure well. Estimated blood loss was 150 mL. There were no complications. The patient will be able to use the distal segment of the loop graft and the medial venous and return for dialysis for the next 4 weeks as his surgical site heals. This is easily palpable and was marked on the skin. He will be discharged to home with his mother and continue with his routine Tuesday, , Tuesday dialysis at the [place] [facility]. We will have a telephone call followup in 2 weeks with his dialysis unit due to the difficulty for him getting to the hospital for followups. ROBER BUENROSTRO MD MT: [id number] Name: JULIO CESAR VICTOR Account: [id number] : 1965 Procedure Date: 05/08/2014 Document: [id number] cc: Copy for Provider [facility] RAND Buenrostro MD Brief Op Note - Rand Segovia MD - 05/08/2014 10:06 AM CDT [facility] Brief Operative Note Pre-operative diagnosis: LEFT FEMORAL PTFE LOOP GRAFT PSEUDO ANEURYSM Post-operative diagnosis pseudoaneurysm Procedure: Procedure(s) with comments: REVISION FISTULA ARTERIOVENOUS LOWER EXTREMITY - LEFT FEMORAL PTFE LOOP GRAFT PSEUDOANEURYSM REPAIR Surgeon(s): Surgeon(s) and Role: * Rober Buenrostro MD - Primary * Rand Segovia MD - Resident - Assisting Estimated blood loss: 150 mL Specimens: * No specimens in log * Findings: Large pseudoaneurysm repaired with bovine patch documented in this encounter Plan of Treatment Not on filedocumented as of this encounter Procedures Procedure Name Priority Date/Time Associated Diagnosis Comme nts REVISION, ARTERIOVENOUS 05/08/2014 7:26 AM pseudoaneur ysm FISTULA, LOWER EXTREMITY CDT Special Needs Does not verbalize per Dr Espinoza aquino office INR STAT 05/08/2014 6:25 AM CDT Resul ts for this procedure are in the results section. POTASSIUM STAT 05/08/2014 6:25 AM CDT Resul ts for this procedure are in the results section. documented in this encounter Results (ABNORMAL) INR (05/08/2014 6:25 AM CDT) athologist Signature INR 2.16 (H) 0.86 - 1.14 [facility] Specimen Anatomical Collection Method Collection Time Receive d Time (Source) Location / / Volume Laterality Blood specimen 05/08/2014 6:25 AM 014 6:38 (specimen) CDT AM CDT Graham Treviño MD LAB - BLOOD ORDERABLES Performing Organization Address City/State/ZIP Code Phon e Number [facility] [address] [place] [address] [facility] Potassium (05/08/2014 6:25 AM CDT) athologist Signature Potassium 4.2 3.4 - 5.3 [place] mmol/L [facility] Specimen Anatomical Collection Method Collection Time Receive d Time (Source) Location / / Volume Laterality Blood specimen 05/08/2014 6:25 AM 014 6:38 (specimen) CDT AM CDT Graham Treviño MD LAB - BLOOD ORDERABLES Performing Organization Address City/State/ZIP Code Phon e Number [facility] [address] [place] [phone] [facility] documented in this encounter Visit Diagnoses Not on filedocumented in this encounter Administered Medications Inactive Administered Medications - up to 3 most recent administrations Medication Order MAR Action Action Date Dose Rate Site bupivacaine (MARCAINE) Given 05/08/2014 9:51 AM 30 mLs Operative injection 0.5% CDT Site/Surgical S ite PRN, Starting on Tue05/08/14 at 0951, Intra-procedure Lidocaine 1 % injection Given 05/08/2014 9:20 AM 10 mLs Operative Site/Surgical PRN, Starting on Tue CDT Site 05/08/14 at 0920, Intra-procedure documented in this encounter Active and Recently Administered Medications Times are shown in CDT. Scheduled Medication Order 05/06/2014 05/07/2014 05/08/2014 ceFAZolin (ANCEF) IVPB 2 g (pre-mix) (COMPLETED) 0740 (Given - Provider: Vinicio Eller APRN CRNA) Routine, 2 g, Intravenous, PRE-OP/PRE-MD OCEDURE, Starting on Tue05/08/14 at 0611, For 1 dose, Give first dose within 1 hour PRIOR to incision. If patient weight is greater than or equal to 120 kg change dose to 3 g., Indications: Perioperative Pharmacoprophylaxis, P re-procedure PRN Medication Order 05/06/2014 05/07/2014 05/08/2014 bupivacaine (MARCAINE) injection 0.5% (CANCELED) 0951 (Given - Provider: Rober Buenrostro MD) PRN, Starting Tue05/08/14 at 0951, Intra-procedure Lidocaine 1 % injection (CANCELED) 0920 (Given - Provider: Rober Buenrostro MD) PRN, Starting Tue05/08/14 at 0920, Intra-procedure No Frequency Medication Order 05/06/2014 05/07/2014 05/08/2014 heparin (porcine) 1000 UNIT/ML injection (COMPLETED) 0820 (Given - Provider: Vinicio Eller APRN CRNA) Starting on Tue05/08/14 at 0708, For 1 d Ilya kinsey RN, Dannielle: cabinet override documented in this encounter Care Teams 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
--- OUTSIDE RECORDS SUMMARY | 2022-09-01 20:22 | XMS_ITS | Encounter Summary ---
:1965 Author Organization [place] Address [address] [place] [address]. [place] [address] Care Team Providers Name Role Phone Preet Huff Primary Care Provider Encounter Details Date Type Department Care Team Description 04/26/2014 Telephone [facility]ascular Jaxon Saravia, [facility] Shital HARPER [address] [place] [phone] [place] [address] [phone] (Wo rk) Social History Tobacco Use Types [...] on filedocumented in this encounter Care Teams Sales Manager [place] Relationship Specialty Start Date End Date Preet Huff PCP - General 06/24/11 documented as of this encounter
--- OUTSIDE RECORDS SUMMARY | 2022-09-01 20:22 | XMS_ITS | Encounter Summary ---
:1965 Author Organization [place] Address [address] [place] [address] Care Team Providers Name Role Phone Preet Huff Primary Care Provider Encounter Details Date Type Department Care Team Description 07/17/[address] [facility] Megan Ochoa Other com plications due Ariane Thomas, RN to renal dialysis Radiology device, implant, and [address] graft ([place] Dx) [place] [phone] Social History Tobacco Use Types Packs/Day Years Used Date Smoking Tobacco: Never Smokeless Tobacco: Never Alcohol Use Standard Drinks/Week Comments No 0 (1 standard drink = 0.6 oz pure alcoho l) Sex Assigned at Date Recorded Not on file documented as of this encounter Plan of Treatment Not on filedocumented as of this encounter Visit Diagnoses Diagnosis Other complications due to renal dialysi s device, implant, and graft - Primary documented in this encounter Care Teams Filter Tender Relationship Specialty Start Date End Date Preet Huff PCP - General 06/24/11 documented as of this encounter
--- OUTSIDE RECORDS SUMMARY | 2022-09-01 20:22 | XMS_ITS | Encounter Summary ---
:1965 Author Organization [place] Address [address] [place] [address]. [place] [address] Care Team Providers Name Role Phone Preet Huff Primary Care Provider Encounter Details Date Type Department Care Team Description 06/28[facility]2013 [facility] Interventional Radio logy RN [address] [place] [address] [place] [phone] [address] [place], [place] [address] Social History Tobacco Use Types Packs/Day Years [...] on filedocumented in this encounter Care Teams Boring Machine Operator Relationship Specialty Start Date End Date Preet Huff PCP - General 06/24/11 documented as of this encounter
--- OUTSIDE RECORDS SUMMARY | 2022-09-01 20:22 | XMS_ITS | Encounter Summary ---
:1965 Author Organization [facility] Address [address] [place] [place] [address] Care Team Providers Name Role Phone Preet Huff Primary Care Provider Reason for Visit Auth/Cert - Closed Specialty Diagnoses / Procedures Referred By Contact Refer red To Contact Surgery Diagnoses clotted off RENAL FAILURE [id number] Main Or Procedures ir dept fistual 0730am CREATE FISTULA ARTERIOVENOUS LOWER EXTREMITY [address] [place] [phone] Phone: Fax: Referral ID Status Reason Start Date Expiration Date Visits Requ ested Visits Authorized [id number] Closed 1 1 Encounter Details Date Type Department Care Team Description 06/20/2013 Surgery [facility] Rober Saravia LEFT LEAH IN PTFE Southda Della Oviedo MD DIALYSIS ACCESS Services [address], [address] [place] [address] [place] [id number] [phone] Surgery Details Date/Time Status Location OR Service Patient Class Case Case Trauma Class Type Case? 06/20/13 7:30 Posted OR OR 42 General Inpatient AM Panel 1 Procedure LRB Anes Op Region Wound Class Commen ts LEFT GROIN PTFE DIALYSIS Left General Leg I-Clean LEFT GROIN PTFE DIALYSIS ACCESS ACCESS Surgeon Surgeon Role Service Panel Rober Saravia [...] Sign Reading Time Taken Comments Blood Pressure 108/60 06/20/2013 5:16 AM CDT Pulse 74 06/20/2013 5:16 AM CDT Temperature 36.9 ??C (98.4 ??F) 06/20/2013 5:16 AM CDT Respiratory Rate 16 06/20/2013 5:16 AM CDT Oxygen Saturation 100% 06/20/2013 5:16 AM CDT Inhaled Oxygen Concentration - - Weight 80.8 kg (178 lb 3.2 oz) 06/19/2013 6:43 PM CDT Height 162.6 cm (5' 4) 06/19/2013 6:43 PM CDT Body Mass Index 31.56 06/19/2013 6:43 PM CDT documented in this encounter Discharge Summaries Danis Anders MD - 06/21/2013 4:09 PM CDT PROCEDURES: 1. Revascularization of right thigh PTFE loop graft 06/19/2013. 2. Placement of left thigh PTFE loop graft on 08/[address] Saravia. FINAL DIAGNOSES: 1. End-stage renal disease with access failure, status post revascularization of a right thigh PTFE graft and placement of left thigh PTFE graft. 2. Hypertension. 3. Anemia. DISCHARGE MEDICATIONS: 1. Dulcolax 10 mg per day. 2. Vitamin D 1000 units per day. 3. Chronulac 60 mL per day p.r.n. 4. Lisinopril 20 mg p.o. on Tuesday, and Saturdays. 5. Metoprolol 100 mg p.o. b.i.d. on Tuesday, Tuesday and Fridays. 6. Coumadin 2.5 mg per day pending INR. 7. PhosLo 2-3 tablets 3 times a day with meals and snacks. 8. Nephrocaps 1 p.o. q. day. 9. Zocor 40 mg p.o. q. day. HOSPITAL COURSE: Julio Cesar Sandhu is a 51-year-old end-stage renal disease patient who was admitted forcreation of a left thigh AV graft for dialysis access after failure of his right thigh AV graft. He underwent revascularization of his right thigh AV graft on 06/19/2013 and subsequent placement of hisnew left thigh PTFE graft by Dr. Saravia on 06/20/2013. The right thigh graft was used for subsequent dialysis pending maturation of the new graft. He underwent dialysis on several occasions. His past medical history includes hypertension, diabetes, hyperlipidemia, anemia, sleep apnea, multiple previousvascular access procedures, blindness from diabetic retinopathy, deep venous thrombosis, and cognitive defects. The patient underwent dialysis without difficulty using his revascularized Jessie- Rubin graft and he wasdischarged to follow up at the [facility] dialysis unit. DISCHARGE PLAN: 1. The patient will have dialysis on a Tuesday, , Tuesday at the [facility] dialysis unit per Dr. Holman. 2. He will resume his predischarge medications as listed in the discharge orders. 3. His new PTFE graft on the left will be ready for use in 2-3 weeks pending evaluation by Dr. Holman. DANIS ANDERS MD MT: nr Name: JULIO CESAR SANDHU MRN: [id number] Account: [id number] : 1965 Admit Date: Discharge Date: 06/21/2013 Document: [id number] documented in this encounter Discharge Instructions Discharge InstructionsTricia Shipley RN - 06/21/2013 5:47 PM CDT Monitor Left and Right groin dialysis fistulas for bleeding, soreness, signs of infection. documented in this encounter Medications at Time of Discharge Medication Sig Dispensed Refills Start Date End Date Cholecalciferol (VITAMIN Take 2,000 Units by 0 D3 PO) mouth every evening b optndxl-T-tutph acid Take 1 capsule by 0 03/04/2016 [...] M, W, F, Leger (Non-dialysis days only) lactulose (CHRONULAC) 10 Take 60 mLs by [...] documented as of this encounter Progress Notes Rm Non-Provider - 07/07/2013 4:12 PM CDT AKT Stephanie Bo RN - 06/21/2013 4:02 PM CDT Dialysis note Patient dialyzed 3.5 hours on k2 bath with serum k 5.2 Running on rt thigh graft with 15 g needles and 300-400ml/min BFR some collapsing with positioning ran at 400 when patient on left side, patient was seen by Dr Anders on run had no dialysis meds did receive 1700units of heparin total Able to uf 3000ml net off Patient teaching on ESRD with little response patient has very flat affectpre run report from Fabienne Ventura Rn station [id number] total blood processed 68L post run report given to Tricia Shipley Rn [email or web address] see [facility] for run details Jeanna Arcos Danis Anders MD - 06/21/2013 3:48 PM CDT Assessment and Plan: ESRD: HD today for clearance and 3 L UF. D/C with F/U [facility]. Interval History: Doing well s/p left femoris profundus to femoral vein PTFE loop graft. Excellent thrill in graft. Minimal pain. -Home likely after dialysis -Continue using RLE loop graft until left has time to mature (2-3 weeks) -Resume all IN HOME SALES CONSULTANT medications Review of Systems: No C/O. Medications: ??? sodium chloride 0.9 % 250 mL Hemodialysis Machine Once ??? sodium chloride 0.9 % 250-1,000 mL Intravenous Once in dialysis ??? heparin (porcine) 500 Units Hemodialysis Machine Once in dialysis ??? sodium chloride (PF) 3 mL Intracatheter Q8H ??? sodium chloride (PF) 3 mL Intravenous Q8H ??? warfarin 2.5 mg Oral ONCE at 18:00 ??? heparin (porcine) ??? heparin (Porcine) Lock Flush ??? B vskjiel-V-zaazl acid 1 capsule Oral At Bedtime ??? bisacodyl 10 mg Oral BID ??? calcium acetate 1,334-2,001 mg Oral TID w/meals ??? lactulose 40 g Oral Daily ??? lisinopril (PRINIVIL,ZESTRIL) tablet 40 mg 40 mg Oral Daily ??? metoprolol 100 mg Oral BID ??? simvastatin 40 mg Oral At Bedtime ??? heparin (porcine) ??? Warfarin Therapy Reminder Current active medications and IN HOME SALES CONSULTANT medications reviewed, see medication list for details. Physical Exam: Vitals were reviewed Patient Vitals for the past 24 hrs: BP Temp Temp src Heart Rate Resp SpO2 Weight 06/21/13 1530 124/61 mmHg - - 87 - - - 06/21/13 1515 124/62 mmHg - - 88 - - - 06/21/13 1500 94/52 mmHg - - 88 - - - 06/21/13 1445 113/40 mmHg - - 90 - - - 06/21/13 1430 134/61 mmHg - - 87 - - - 06/21/13 1415 127/59 mmHg - - 86 - - - 06/21/13 1400 129/58 mmHg - - 92 - - - 06/21/13 1345 126/60 mmHg - - 87 - - - 06/21/13 1330 127/64 mmHg - - 87 - - - 06/21/13 1310 147/69 mmHg - - 85 - - - 06/21/13 1300 163/72 mmHg 98.6 ??F (37 ??C) Oral 88 16 - - 06/21/13 1136 126/57 mmHg 99 ??F (37.2 ??C) - 87 16 97 % - 06/21/13 0744 146/70 mmHg 99.4 ??F (37.4 ??C) - 82 16 100 % - 06/21/13 0723 - - - - - - 83.4 kg (183 lb 13.8 oz) 06/21/13 0000 145/70 mmHg 98.2 ??F (36.8 ??C) Oral 77 16 100 % - 06/20/132024 135/52 mmHg - - 85 18 100 % - 06/20/13 1932 112/55 mmHg 97.6 ??F (36.4 ??C) Oral 91 18 100 % - 06/20/13 1600 - - - - 18 - - 06/20/13 1549 126/67 mmHg 97.3 ??F (36.3 ??C) Oral 78 18 100 % - Temp: [97.3 ??F (36.3 ??C)-99.4 ??F (37.4 ??C)] 98.6 ??F (37 ??C) Heart Rate: [77-92] 87 Resp: [16-18] 16 BP: (94-163)/(40-72) 124/61 mmHg SpO2: [97 %-100 %] 97 % Temperatures: Current - Temp: 98.6 ??F (37 ??C); Max - Temp Av.4 ??F (36.9 ??C) Min: 97.3 ??F (36.3 ??C) Max: 99.4 ??F (37.4 ??C) Respiration range: Resp Av Min: 16 Max: 18 Pulse range: No Data Recorded Blood pressure range: Systolic (24hrs), Av mmHg, Min:94 mmHg, Max:163 mmHg ; Diastolic (24hrs), Av mmHg, Min:40 mmHg, Max:72 mmHg Pulse oximetry range: SpO2 Av.5 % Min: 97 % Max: 100 % I/O last 3 completed shifts: In: 960 [P.O.:960] Out: 0 Intake/Output Summary (Last 24 hours) at 06/21/13 1548 Last data filed at 06/21/13 1137 Gross per 24 hour Intake 960 ml Output 0 ml Net 960 ml Alert and responsive RLE AVF with needles inplace LLE PTFE graft: incision without erythema or drainage, + thrill Weights (last 365 days) Date/Time Weight [facility] 06/21/13 0723 83.4 kg (183 lb 13.8 oz) AC 06/19/13 1843 80.831 kg (178 lb 3.2 oz) Wt Readings from Last 4 Encounters: 06/21/13 83.4 kg (183 lb 13.8 oz) 06/21/13 83.4 kg (183 lb 13.8 oz) 05/23/13 79.9 kg (176 lb 2.4 oz) 03/23/13 82 kg (180 lb 12.4 oz) Data: NA 126 06/21/2013 NA * 08/10/2012 Value: Unsatisfactory specimen - hemolyzed NOTIFIED DIALYSIS AT 0840 NA 139 08/08/2012 CHLORIDE 92 06/21/2013 CHLORIDE * 08/10/2012 Value: Unsatisfactory specimen - hemolyzed NOTIFIED DIALYSIS AT 0840 CHLORIDE 98 08/08/2012 BUN 90 06/21/2013 BUN * 08/10/2012 Value: Unsatisfactory specimen - hemolyzed NOTIFIED DIALYSIS AT 0840 BUN 77 08/08/2012 POTASSIUM 5.5 06/21/2013 POTASSIUM 5.2 06/20/2013 POTASSIUM 5.0 06/19/2013 CO2 19 06/21/2013 CO2 * 08/10/2012 Value: Unsatisfactory specimen - hemolyzed NOTIFIED DIALYSIS AT 0840 CO2 27 08/08/2012 CR 13.45 06/21/2013 CR * 08/10/2012 Value: Unsatisfactory specimen - hemolyzed NOTIFIED DIALYSIS AT 0840 CR 11.87 08/08/2012 Recent Labs Lab Test 06/21/13 1310 06/20/13 0610 06/19/13 1215 08/08/12 1255 08/05/12 0820 08/04/12 0658 WBC -- -- -- 4.1 5.2 -- HGB 10.5* 10.5* 11.5* -- -- -- HCT -- -- -- 25.0* 25.4* -- MCV -- -- -- 88 86 -- PLT -- -- -- 145* 105* 91* No results found for this basename: AST:3,ALT:3,GGT:3,ALKPHOS:3,BILITOTAL:3,BILICONJ:3,BILIDIRECT:3,B ILIRUBININDIRECT:3,DARLINE:3 in the last 43692 hours No results found for this basename: MA in the last 57823 hours Recent Labs Lab Test 08/10/12 0810 08/05/12 0820 PHOS Unsatisfactory specimen - hemolyzed NOTIFIED DIALYSIS AT 0840 3.6 Recent Labs Lab Test 06/21/13 1310 08/10/12 0810 08/08/12 1255 JON 8.5 Unsatisfactory specimen - hemolyzed NOTIFIED DIALYSIS AT 0840 9.5 Lab Results Component Value Date JON 8.5 06/21/2013 Lab Results Component Value Date WBC 4.1 08/08/2012 HGB 10.5* 06/21/2013 HCT 25.0* 08/08/2012 MCV 88 08/08/2012 PLT 145* 08/08/2012 Lab Results Component Value Date NA 126* 06/21/2013 POTASSIUM 5.5* 06/21/2013 CHLORIDE 92* 06/21/2013 CO2 19* 06/21/2013 GLC 139* 06/21/2013 Lab Results Component Value Date BUN 90* 06/21/2013 CR 13.45* 06/21/2013 No results found for this basename: MAG Lab Results Component Value Date PHOS Value: Unsatisfactory specimen - hemolyzed NOTIFIED DIALYSIS AT 0840 08/10/2012 Creatinine Date Value Range Status 06/21/2013 13.45* 0.66 - 1.25 mg/dL Final 08/10/2012 Unsatisfactory specimen - hemolyzed NOTIFIED DIALYSIS AT 0840 0.66 - 1.25 mg/dL Final 08/08/2012 11.87* 0.66 - 1.25 mg/dL Final 08/05/2012 8.18* 0.66 - 1.25 mg/dL Final 08/03/2012 17.64* 0.66 - 1.25 mg/dL Final 08/01/2012 9.76* 0.66 - 1.25 mg/dL Final Attestation: I have reviewed today's vital signs, notes, medications, labs and imaging. Seen on dialysis. DANIS ANDERS MD Nely Crocker LSW - 06/21/2013 11:23 AM CDT SW: D: SULY assisting with transportation I/A: Pt currently utilizes [facility] n [facility] transportation services and has requested that transport be arranged at d/c. SW has contacted [employer] and unfortunately transport schedule is full for the day. Transport services provided alternative transport options that would likely be covered under pt insurance. SW has contact [employer] to attempt ride set up. SW was informed that a ride would be possible for today. [employer] is verifying insurance coverage for their service and will notify when this is confirmed. P: SW to follow and assist with transport back to back home in [place], [place]. ADDENDUM: Pt will be picked up by [employer] at 1800 this evening, 06/21. Pt is to be at main hospital door (door 4) at this time for pickup. has given transportation agency unit phone number/main hospital number if any issues arise prior to d/c. No further needs. Nely Crocker, PERLA, [employer] Rober Saravia MD - 06/21/2013 7:19 AM CDT Surgery Doing well s/p left femoris profundus to femoral vein PTFE loop graft. Excellent thrill in graft. Minimal pain. -Home likely after dialysis -Continue using RLE loop graft until left has time to mature (2-3 weeks) -Resume all IN HOME SALES CONSULTANT medications S: No complaints this AM. O: B/P: 145/70, T: 98.2, P: 74, R: 16 Gen: NAD CV: RR Pulm: CTAB: Ext: thrill palpable over b/l loop grafts, left groin incision is c/d/i, no hematoma, induration or erythema Kendall Ramirez MD Surgery Resident Staff: Sitting up. No pain. Wd=A Good bruit both grafts. ? Home today after dialysis. Continue Coumadin to keep grafts patent. Will use right graft till left matures--longer if stays patent (saving left for future use). Wm Rani HARPER Danis Anders MD - 06/20/2013 1:38 PM CDT Assessment and Plan: ESRD: HD yest. Patient dialyzed for 3.5 hrs on a 2 K bath with a net fluid removal of 4L. A BFR of 300-350ml/min was obtained via R thigh graft using sheaths and all connections secured. Patient was seen by during treatment. Total heparin received during treatment:: 1000units. Meds given:none. Will plan HD in am. Then D/C to [facility] Outpt dialysis S/P Left groin profundus femoral artery to superficial femoral vein loop 4x7 mm Propaten PTFE dialysis graft. Interval History: 48 yo M ESRD on HD [facility] -. Long history of access problems. No access options in upper extremity. Running on right thigh loop graft. Multiple declots including today. Many stents and no optimism for termite treater patency. Dr. Saravia plans loop graft on the other side today. This will heal in while the existing graft is still working. This is needed as there is no option for temporary CVC above waist while a new graft heals in. Review of Systems: Feels well. Some incisional pain. Medications: ??? sodium chloride (PF) 3 mL Intracatheter Q8H ??? sodium chloride (PF) 3 mL Intravenous Q8H ??? warfarin 2.5 mg Oral ONCE at 18:00 ??? heparin (porcine) ??? heparin (Porcine) Lock Flush ??? B iflehjx-T-opddh acid 1 capsule Oral At Bedtime ??? bisacodyl 10 mg Oral BID ??? calcium acetate 1,334-2,001 mg Oral TID w/meals ??? lactulose 40 g Oral Daily ??? lisinopril (PRINIVIL,ZESTRIL) tablet 40 mg 40 mg Oral Daily ??? metoprolol 100 mg Oral BID ??? simvastatin 40 mg Oral At Bedtime ??? DISCONTD: heparin (porcine) 500 Units Hemodialysis Machine Once in dialysis ??? DISCONTD: NaCl 10 mL/hr at 06/20/13 0645 ??? DISCONTD: lactated ringers ??? DISCONTD: heparin (porcine) Current active medications and IN HOME SALES CONSULTANT medications reviewed, see medication list for details. Physical Exam: Vitals were reviewed Patient Vitals for the past 24 hrs: BP Temp Temp src Pulse Heart Rate Resp SpO2 Height Weight 06/20/13 1230 - - - - - 16 - - - 06/20/13 1205 148/69 mmHg 97.4 ??F (36.3 ??C) - - 72 16 100 % - - 06/20/13 1150 162/76 mmHg - - - 72 14 99 % - - 06/20/13 1140 166/72 mmHg - - - 76 15 99 % - - 06/20/13 1130 170/77 mmHg - - - 77 16 97 % - - 06/20/13 1120 163/74 mmHg - - - 74 17 99 % - - 06/20/13 1110 157/73 mmHg - - - 72 20 98 % - - 06/20/13 1100 124/59 mmHg - - - 76 21 99 % - - 06/20/13 1050 98/81 mmHg - - - 73 20 96 % - - 06/20/13 1040 131/64 mmHg - - - 68 20 100 % - - 06/20/13 1030 130/76 mmHg 98 ??F (36.7 ??C) Temporal - 70 15 100 % - - 06/20/13 0516 108/60 mmHg 98.4 ??F (36.9 ??C) Oral 74 74 16 100 % - - 06/20/13 0100 120/64 mmHg 97.6 ??F (36.4 ??C) Oral 74 74 18 100 % - - 06/19/13 1948 126/69 mmHg 98.8 ??F (37.1 ??C) Oral - 81 16 100 % - - 06/19/13 1843 - - - - - - - 1.626 m (5' 4) 80.831 kg (178 lb 3.2 oz) 06/19/13 1709 144/78 mmHg 98.5 ??F (36.9 ??C) Oral - 75 16 99 % - - 06/19/13 1645 145/62 mmHg - - - 68 - - - - 06/19/13 1545 183/90 mmHg - - - 66 - - - - 06/19/13 1530 138/85 mmHg 97.4 ??F (36.3 ??C) - - 64 16 - - - 06/19/13 1519 109/58 mmHg - - - 68 - - - - 06/19/13 1515 96/55 mmHg - - - 67 - - - - 06/19/13 1500 132/64 mmHg - - - 65 - - - - 06/19/13 1430 163/87 mmHg - - - 67 16 - - - 06/19/13 1415 132/77 mmHg - - - 71 - - - - 06/19/13 1400 132/71 mmHg - - - 72 - - - - 06/19/13 1345 138/77 mmHg - - - 69 - - - - Temp: [97.4 ??F (36.3 ??C)-98.8 ??F (37.1 ??C)] 97.4 ??F (36.3 ??C) Pulse: [74] 74 Heart Rate: [64-81] 72 Resp: [14-21] 16 BP: (96-183)/(55-90) 148/69 mmHg FiO2 (%): [97 %] 97 % SpO2: [96 %-100 %] 100 % Temperatures: Current - Temp: 97.4 ??F (36.3 ??C); Max - Temp Av ??F (36.7 ??C) Min: 97.4 ??F (36.3 ??C) Max: 98.8 ??F (37.1 ??C) Respiration range: Resp Av.9 Min: 14 Max: 21 Pulse range: Pulse Av Min: 74 Max: 74 Blood pressure range: Systolic (24hrs), Av mmHg, Min:96 mmHg, Max:183 mmHg ; Diastolic (24hrs), Av mmHg, Min:55 mmHg, Max:90 mmHg Pulse oximetry range: SpO2 Av % Min: 96 % Max: 100 % I/O last 3 completed shifts: In: 840 [P.O.:840] Out: 3300 [Other:3300] Intake/Output Summary (Last 24 hours) at 06/20/13 1338 Last data filed at 06/20/13 1330 Gross per 24 hour Intake 1880 ml Output 3305 ml Net -1425 ml Resting in bed. Alert. Date/Time Weight 06/19/13 1843 80.831 kg (178 lb 3.2 oz) Wt Readings from Last 4 Encounters: 06/19/13 80.831 kg (178 lb 3.2 oz) 06/19/13 80.831 kg (178 lb 3.2 oz) 05/23/13 79.9 kg (176 lb 2.4 oz) 03/23/13 82 kg (180 lb 12.4 oz) Data: Recent Labs Lab Test 06/20/13 0610 06/19/13 1215 08/10/12 0810 08/08/12 1255 08/05/12 0820 08/04/12 0658 WBC -- -- -- 4.1 5.2 -- HGB 10.5* 11.5* 9.7* -- -- -- HCT -- -- -- 25.0* 25.4* -- MCV -- -- -- 88 86 -- PLT -- -- -- 145* 105* 91* Attestation: I have reviewed today's vital signs, notes, medications, labs and imaging. DANIS ANDERS MD Jazmín Soriano RN, RN - 06/19/2013 2:27 PM CDT Potassium Date Value Range Status 06/19/2013 5.0 3.4 - 5.3 mmol/L Final ] HGB 11.5 06/19/2013 DIALYSIS PROCEDURE NOTE Patient dialyzed for 3.5 hrs on a 2 K bath with a net fluid removal of 4L. A BFR of 300-350ml/min was obtained via R thigh graft using sheaths and all connections secured. Patient was seen by during treatment. Total heparin received during treatment:: 1000units. Meds given:none. Complications :Unable to incr BFR due to sheaths. Procedure and ESRD teaching done and questions answered. See flowsheet in Screenmailer for further details. RO log completed Prime given: NS Saline double clamped and Arterial/Venous parameters set. Patient transported via cart to the dialysis unit Aseptic prep done for both on/off. Transducer connectors checked q15 minutes with vital sign check : Report received from:Layla Garcia RN/IR Report given to:Nola Lizarraga RN Outpatient Dialysis at [facility] Alvaro Cyr MD - 06/19/2013 2:24 PM CDT Inpatient Dialysis Progress Note Assessment and Plan: 1. ESKD. Stable run. Current access working well via IR sheaths. BFR a little low. Still expect goodchemical exchange. Tolerating 4 kg fluid removal as well. 2. Anemia. Hgb 11.5. He has been on EPO 14,300 units 3x/week. Held today. 3. HTN. BP very high in care suites. 202/102. Better now with fluid removal. 4. FEN. K 5.0 5. Access: See below. INR 2.4. Warfarin to be held tonight. Interval History: 48 yo M ESKD on HD [facility] . Long history of access problems. No access options in upper extremity. Running on right thigh loop graft. Multiple declots including today. Many stents and no optimism for detention patency. Dr. Saravia plans loop graft on the other side tomorrow. This will heal in while the existing graft isstill working. This is needed as there is no option for temporary CVC above waist while a new graft heals in. No HD since last as clotted for Tuesday run and no transportation. Eating ok. Denies n/v/f/c. No dizziness/lightheadedness/cramping. No abd pain/cp/sob. Dialysis Parameters: Wt Readings from Last 4 Encounters: 05/23/13 79.9 kg (176 lb 2.4 oz) 03/23/13 82 kg (180 lb 12.4 oz) 11/08/12 74.39 kg (164 lb) 09/20/12 76.204 kg (168 lb) BP Readings from Last 3 Encounters: 06/19/13 132/77 05/23/13 217/105 05/07/13 193/119 Routine, ONE TIME, Starting today For 1 Occurrences Weight Loss (kg): 4 Dialysis Temp: 36.5 ??C Access Device: graft Access Site: right thigh Dialyzer: Revaclear Dialysis Bath: K 2 Blood Flow Rate (mL/min): 300 (on sheaths) Total Treatment Time (hrs): 3.5 Heparin: low dose Medications and Allergies: Reviewed in EPIC ??? heparin (porcine) ??? iopamidol 100 mL Intravenous Once ??? alteplase 4 mg Intravenous Once ??? hydrALAZINE 10 mg Intravenous Once ??? heparin (Porcine) Lock Flush ??? heparin (porcine) 500 Units Hemodialysis Machine Once in dialysis ??? DISCONTD: sodium chloride (PF) 3 mL Intravenous Q8H ??? DISCONTD: heparin 500 Units Intracatheter Once lidocaine (PF), albumin human, sodium chloride 0.9 %, albumin human, DISCONTD: sodium chloride (PF),DISCONTD: sodium chloride (PF), DISCONTD: - MEDICATION INSTRUCTIONS -, DISCONTD: fentaNYL, DISCONTD:naloxone, DISCONTD: midazolam, DISCONTD: flumazenil Allergies Allergen Reactions ??? Aspirin (Dihydroxyaluminum Aminoacetate) GI Disturbance GI bleeding Labs: BMP Lab 06/19/13 1215 NA -- POTASSIUM 5.0 CHLORIDE -- JON -- CO2 -- BUN -- CR -- GLC -- CBC Lab 06/19/13 1215 WBC -- HGB 11.5* HCT -- MCV -- PLT -- No results found for this basename: AST, ALT, GGT, ALKPHOS, bilitotal, biliconj, bilidirect, bilirubinindirect, darline Physical Exam: Vitals were reviewed in [facility] Wt Readings from Last 3 Encounters: 05/23/13 79.9 kg (176 lb 2.4 oz) 03/23/13 82 kg (180 lb 12.4 oz) 11/08/12 74.39 kg (164 lb) No intake or output data in the 24 hours ending 06/19/13 1425 GENERAL APPEARANCE: pleasant, no distress, a & o HEENT: Eyes/ears/nose grossly normal, neck supple RESP: lungs clear to auscultation with good efforts, no crackles, rhonchi or wheezes CV: regular rate and rhythm, normal S1 S2, no murmur, click or rub ABDOMEN: soft, nontender, bowel sounds normal EXTREMITIES/SKIN: tr edema Pt seen on dialysis. Stable run. Good BFR. Attestation: I have reviewed today's vital signs, notes, medications, labs and imaging. Alvaro Cyr MD, [facility] - Nephrology [phone] Rober Saravia MD - 06/19/2013 12:43 PM CDT Vascular Surgery Progress Note S:Om Dialysis via right groin graft O: Vitals: BP Min: 155/79 Max: 238/107 Temp Av ??F (36.1 ??C) Min: 96.6 ??F (35.9 ??C) Max: 97.4 ??F (36.3 ??C) Pulse Av.8 Min: 60 Max: 68 Physical Exam: +3 left pedal pulses with no edema. Chest=clear CV=RR Angio reviewed: Graft re-opened and IN HOME SALES CONSULTANT performed. Evidence of chronic changes from access needles in graft along with inflow and outflow problems. Assessment/Plan:I suspect that this graft will re-occlude. I feel we should place a new left groin PTFE graft now to allow time to mature while right side is still working. He has no upper body access possibilities. Plan OR tomorrow--admit patient and hold Coumadin. Wm. Rani HARPER Isis Parikh RN - 06/19/2013 10:51 AM CDT Return to [facility] at [address]40. Dr Anders paged as requested when pt arrived back in Care Suites. Pt is eating, will have dialysis here, they will call for pt when ready. Dialysis sheaths in place in right upper leg, secured, no bleeding or hematoma. Will monitor until pt is transported to dialysis. VSS Report: Sheaths heparin locked, 4mg TPA to loop fistula, angioplasty. Layla Delcid RN - 06/19/2013 8:41 AM CDT Interventional Radiology Intra-procedural Nursing Note Patient Name: Julio Cesar Sandhu Today's Date: June 19, 2013 Start Time: 834 End of procedure time: 1035 Procedure: Fistulagram with possible revascularization and possible tunneled catheter placement Report given to: Jazmín MCKEON Time pt departs: 1040 [employer] Interviewer: Other Notes: Pt consented. Dr. Olvera present. VSS. Pt prepped and draped. Sedation given. Right thigh fistula accessed. Fistulagram done. TPA [address] Olvera into clotted fistula. Thrombolysis done with Angiojet to remove clot. Angioplasty done to several areas of loop fistula and within stent. Improved blood flow. Pt tolerated procedure well. Dr. Mason updated. Plan to keep pt at [facility] and dialysis here. [facility]. Report given to cable assembler and swager and caresuites. Layla Garcia Isis Neff RN - 06/19/2013 7:29 AM CDT Attempted to locate Dantes mother in lobby to verify IN HOME SALES CONSULTANT meds. No answer to pager at this time. Will verify when able. Isis Parikh RN - 06/19/2013 7:14 AM CDT Per Layla in IR dept pt has a scanned in H&P in [employer]. I cannot see or view this. IV team called called for hx of difficult IV start with many multiple attempts on prev visits. IV team unable tocome today until 0800. This info reported to Layla. Pt comfortable. Isis Parikh RN - 06/19/2013 7:03 AM CDT Pt here today for fistulagram. Pt states attempted dialysis on Tuesday with not a good run. Reportslast good dialysis was on of last week. Mother here today with pt. Will clarify IN HOME SALES CONSULTANT meds with here. Pt states he would not know his meds by name. documented in this encounter H&P Notes Patricia Olvera MD - 06/25/2013 2:14 PM CDT Alvaro Cyr MD - 06/19/2013 3:07 PM CDT HISTORY OF PRESENT ILLNESS: Mr. Julio Cesar Sandhu is a 48-year-old male who was admitted for creation ofa left thigh AV graft for dialysis access. Mr. Julio Cesar Sandhu is a 48-year-old male with end-stage kidney disease apparently coming as a complication of longstanding hypertension and diabetes. He has been on chronic dialysis for many years. He has had a great deal of trouble maintaining vascular access and at this point has no vascular access options above the waist. He has in recent times been dialyzing via a right thigh loop graft. This loopgraft has thrombosed many times and has had multiple declots and interventions, leaving him with many stents. Most recent episode of thrombosis was recognized on Tuesday, which prevented him from dialyzing at that time. He was unable to be transported up for declot on that day and therefore was set up for declot today. His declot was done successfully. However, Dr. Saravia, who knows him well, does not have great optimism for long-term patency. Therefore, he elects to proceed with placement of a leftthigh Goretex loop graft which will be undertaken tomorrow, 06/20. He is therefore admitted overnight in preparation for this surgery. Currently Julio Cesar has no particular complaints beyond the misfortune of having a clotted graft resulting in his hospital stay. PAST MEDICAL HISTORY: 1. Hypertension. 2. Type 2 diabetes mellitus. 3. Hyperlipidemia. 4. Anemia of chronic kidney disease. 5. Sleep apnea. 6. Multiple previous vascular access procedures. 7. Blindness from diabetic retinopathy. 8. History of deep venous thrombosis. 9. Cognitive deficits. PAST SURGICAL HISTORY: Include multiple vascular access procedures, TURP with circumcision, femoral popliteal bypass graft. CURRENT MEDICATIONS: 1. Nephrocaps 1 daily. 2. Dulcolax 10 mg twice a day. 3. Calcium acetate 667 mg 2-3 by mouth 3 times per day and 1 with snacks. 4. Hydrocodone with acetaminophen 5/325 mg p.r.n. 5. Lactulose 40 grams by mouth, or 60 mL, once daily. 6. Lisinopril 40 mg daily. 7. Metoprolol 100 mg b.i.d. 8. Simvastatin 40 mg daily. 9. Warfarin, dose based on INR. ALLERGIES: Aspirin. FAMILY HISTORY: Unavailable and the patient is unable to provide. SOCIAL HISTORY: He lives with family. PHYSICAL EXAMINATION: GENERAL: He is a middle-aged male in no distress. He is undergoing dialysis uneventfully. VITAL SIGNS: Pulse 68. Blood pressure 132/64, afebrile. HEENT: Normocephalic, atraumatic. Pupils are round and reactive, sclerae white. Face is symmetric. NECK: Veins are not distended. Carotid upstroke is normal. There is no adenopathy. LUNGS: Clear to auscultation and percussion. HEART: Tones are regular. No obvious murmur, rub or gallop. ABDOMEN: Soft, bowel sounds are present. No enlargement of spleen, kidneys or abdominal aorta. EXTREMITIES: Right thigh graft is patent. Interventional radiology sheaths in place. Lower extremities have trace edema. LABORATORY DATA: Potassium is 5.0. Hemoglobin 11.5, INR 2.42. IMPRESSION: 1. End-stage kidney disease. The biggest problem related to his end-stage kidney disease is that of maintaining vascular access. His current vascular access does not have long-term viability, and as hehas no prospects for a temporary catheter above the waist it is best to create and establish his next access in the left thigh so that it may heal in while the right thigh graft is still working over the next few weeks. 2. Hypertension. His blood pressure was very high in the [facility], up to 202/102. It is better now as fluid is coming off. Will resume his current medications and use hydralazine as needed. 3. Anemia. His hemoglobin is up to 11.5. Review of outpatient records does show that he was on high-dose EPO with 14,300 units per day. As he is now above goal this will currently be held. He will likely need to resume it at a lower dose. 4. Renal osteodystrophy. Review of outpatient records shows good control of phosphorus and PTH, phosphorus is 4.2, calcium 8.9 and PTH 380. 5. Nutrition. His potassium was in an acceptable range. His albumin as an outpatient was 4.1. PLAN: 1. He will dialyze today, 06/19, as he has not dialyzed since last , 06/14. 2. He will be admitted overnight in preparation for surgery tomorrow for a new loop graft. 3. He will be n.p.o. after midnight. 4. Warfarin will be held. 5. I will hold EPO for the time being and resume at a lower dose in future. ALVARO CYR MD MT: [id number] Name: JULIO CESAR SANDHU MRN: [id number] Account: [id number] : 1965 Admitted: [id number] Document: [id number] cc: [facility] Saravia MD documented in this encounter Procedure Notes Patricia Olvera MD - 06/19/2013 10:37 AM CDT RUE Fistulagram and declot. Angioplasty throughout, mechanical thrombectomy. Ready for immediate dialysis. documented in this encounter Nursing Notes Wu Maxwell RN - 06/20/2013 6:43 AM CDT Lopressor not given this am - due at 9am had pm dose - dr luther aware Per Pam CN consent fine with PTFE on consent documented in this encounter Miscellaneous Notes Plan of Care - Tricia Shipley RN - 06/21/2013 5:56 PM CDT Problem: IP GENERAL POC-ADULT,OB,BEHAVIORAL FVCPM Goal: Individualization/Patient-Specific Goal (Adult,OB,Behavioral The patient and/or their videotape sales representative will achieve their patient-specific goals related to the plan of care. The patient-specific goals include: Outcome: Adequate for Discharge Date Met: 06/21/13 VSS, pt given written discharge instructions and verbalized understanding of monitoring sites for infection. D/C home per WC. Plan of Care - Yolanda Ventura RN - 06/21/2013 3:03 PM CDT Problem: IP GENERAL POC-ADULT,OB,BEHAVIORAL FVCPM Goal: Individualization/Patient-Specific Goal (Adult,OB,Behavioral The patient and/or their videotape sales representative will achieve their patient-specific goals related to the plan of care. The patient-specific goals include: Outcome: Improving VSS, tolerating meals, denies pain, thrill and bruit present bilateral groin, +BLE pulses. Up ambulating in hallways, transferred to HD @ 1300, plan for discharge @ 1800. Plan of Care - Guru Pollard RN - 06/21/2013 7:02 AM CDT Problem: IP GENERAL POC-ADULT,OB,BEHAVIORAL FVCPM Goal: Individualization/Patient-Specific Goal (Adult,OB,Behavioral The patient and/or their videotape sales representative will achieve their patient-specific goals related to the plan of care. The patient-specific goals include: Outcome: No Change Right and left groin CDI, +bruit/thrill. CMS intact. Gave prn lozenges for c/o sore throat. Denies pain. Overnight temp max 98.2. Pt plan to have dialysis today. Plan of Care - Tricia Shipley RN - 06/20/2013 8:58 PM CDT Problem: IP GENERAL POC-ADULT,OB,BEHAVIORAL FVCPM Goal: Individualization/Patient-Specific Goal (Adult,OB,Behavioral The patient and/or their videotape sales representative will achieve their patient-specific goals related to the plan of care. The patient-specific goals include: Outcome: No Change VSS, up with SBA. To chair for meal, brigida diet. Left and Right groin site D/I, thrill & bruit present. CMS intact, unable to pass flatus. Plan for dialysis in a.m., then D/C. Utilization Review - Layla Sahu MD - 06/20/2013 4:29 PM CDT Admission Status; Secondary Review Determination 06/19/2013 6:17 AM Under the authority of the Utilization Management [...] reasonable inpatient medical practice. RATIONALE FOR DETERMINATION 48 year old male with ESRD on hemodialysis who underwent a fistulogram and declot with mechanical thrombectomy of his right thigh loop graft fistula on 06/19/13. He had not dialyzed in 5 days as his access was clotted. He has a long history of vascular access problems and has no options for access in his upper extremities. He has had multiple de-clots prior to this one and is s/p multiple stents. Vascular surgery follows closely and felt the likelihood of long-term patency after this de-clot was low.He was admitted to the hospital for placement of a left thigh Gortex loop graft, which was done today. He has no options for access above his waist, so the timing of this surgery was important. The surgery today was without complication. He will remain in the hospital a second night and will dialyze again tomorrow with possible discharge tomorrow pending clinical course. Given that he has very limited access, missed dialysis prior to the initial procedure and is at high risk for re-clotting he is appropriate for inpatient level of care. The severity of illness, intensity of service provided, expected LOS and risk for adverse outcome make the care complex, high risk and appropriate for hospital admission. The information on this document [...] 1 and Chapter 6, section 70.4. Sincerely, Layla Sahu MD MPH Utilization Review [facility]. Plan of Care - Sabine Rondon RN - 06/20/2013 3:04 PM CDT Problem: IP GENERAL POC-ADULT,OB,BEHAVIORAL FVCPM Goal: Individualization/Patient-Specific Goal (Adult,OB,Behavioral The patient and/or their videotape sales representative will achieve their patient-specific goals related to the plan of care. The patient-specific goals include: Pt back to floor around 1215 from having new fistula placed in left groin. VSS. CMS intact. Up with SBA. C/O throat pain; RN gave pt throat lozenges and offered ice chips . Transparent dressing over left groin CDI. BS hypoactive; tolerating full liquid diet. Continue to monitor. Provider Notification - Dannielle Cruz RPH - 06/20/2013 2:28 PM CDT Call placed to Dr. Anders to clarify home doses of IN HOME SALES CONSULTANT meds that were originally order with different (higher) doses/frequencies. Explained that pt took lower dose of lisinopril and only on 3 days/wk (when not taking metoprolol). Also explained that both lisinopril and metoprolol are both order inpt, but were only being taken on opposite days at home. MD states that he wants to continue with current higher and more frequent doses of these two meds as currently ordered due to pt's blood pressure not under control at home prior to admission. Dannielle Cruz PharmD Op Note - Rober Saravia MD - 06/20/2013 10:07 AM CDT Antique Repairer: Kendall Ramirez MD ([facility] [place]ident) PREOPERATIVE DIAGNOSIS: Failing right groin dialysis access graft. POSTOPERATIVE DIAGNOSIS: Failing right groin dialysis access graft. PROCEDURE: Left groin profundus femoral artery to superficial femoral vein loop 4x7 mm Propaten PTFEdialysis graft. ANESTHESIA: General. PREOPERATIVE MEDICATIONS: Ancef 2 grams IV. INDICATIONS: Julio Cesar Sandhu is a 48-year-old patient on chronic hemodialysis. He has no upper extremity access left. He has a right groin loop PTFE graft that has had multiple occlusions and required a declot yesterday. This likely will reclot. We felt he would benefit from placement of a similar access in the left groin which has never been operated on before. Informed consent was obtained from the patient's mother due to his retardation. DESCRIPTION OF PROCEDURE: The patient was brought to operating room and induced under general anesthesia, orally intubated without difficulty. Calf pneumatic compression boots were used and a pillow was placed under his knees. The left groin and proximal thigh were prepped and draped in the usual fashion. VASCULAR EXPOSURE: An oblique incision was made in the left groin. Dissection was carried down to identify the femoral vessels. The patient had excellent profundus femoral artery measuring almost 6 mm in diameter along with a normal superficial femoral artery with no disease. We decided to base this off the profundus femoral artery to avoid any potential ischemic changes to the leg. The profundus femoral artery was dissected free. The distal branches were encircled with Silastic vessel loops as was the more proximal vessel. We then exposed the greater saphenous vein at the saphenofemoral junction. We dissected free the superficial femoral vein distal to this. Multiple branches were encircled with S ilastic vessel loop. This measured at least 8 mm in diameter. 4x7 mm PROPATEN GRAFT: The patient is on Coumadin with INR of 1.99 today, therefore no systemic heparinization was given. A 4x7 mm standard wall Propaten graft was selected. This was trimmed slightly obliquely in the 4 mm segment. Vessel loops were tightened around the profundus femoral artery and a 5mm longitudinal arteriotomy was made in this completely disease-free vessel. End-to-side anastomosiswas created with running 6-0 Prolene suture and loupe magnification. With release of the vessel loops, we had a strong pulse within the graft. Needle hole bleeding at one site was repaired with a mattress 7-0 Prolene suture. Otherwise, excellent hemostasis was noted. We made an incision in the more distal portion of the thigh. With the aid of a Ryann wick tunnel, we brought the graft in a gentle curve back up to the superficial femoral vein. We allowed the graft to perfuse with arterial pressure to ensure that it was not twisted. Heparinized saline solution was injected and a vascular clamp was reap plied to the 4 mm segment. The 7 mm segment was spatulated. Vessel loops were tightened around the superficial femoral vein. A 1.5 cm longitudinal venotomy was made in the completely disease-free vessel. End-to-side anastomosis was created with a running 6-0 Prolene suture. With release of the vessel loops and vascular clamp, we had an excellent palpable thrill throughout the entire graft. Good hemostasis was noted. There was no evidence of decreased blood flow to his foot. Wounds were infiltrated with 0.5% Marcaine for postop analgesia. Subcutaneous tissue was closed with interrupted 3-0 Vicryl and the skin was closed with 4-0 Monocryl in subcuticular fashion. Surgical adhesive glue was applied over the skin incisions due to the location of the groin. The patient tolerated the procedure well. The arterial limb of the graft is located laterally on thethigh. ESTIMATED BLOOD LOSS: 5 cc. COMPLICATIONS: None. ROBER SARAVIA MD MT: [id number] Name: JULIO CESAR SANDHU MRN: [id number] Account: [id number] : 1965 Procedure Date: 06/20/2013 Document: [id number] [facility] Jagdeep RAMIREZ MD Provider Notification - Ira Wells RN - 06/20/2013 6:[address] Tello was notified of pt INR from yesterday being 2.42. Plan for OR today. No new order. He said to send pt forsurgery. Pre op nurse notified. Pt has been transferred to Pre-op. INR this am 1.90. Plan of Care - Nola Lizarraga RN - 06/19/2013 11:56 PM CDT Problem: IP GENERAL POC-ADULT,OB,BEHAVIORAL FVCPM Goal: Individualization/Patient-Specific Goal (Adult,OB,Behavioral The patient and/or their videotape sales representative will achieve their patient-specific goals related to the plan of care. The patient-specific goals include: Outcome: No Change VSS. A&O, answers questions appropriately, uses call light appropriately. Up SBA. Voiding adequately. Right groin sites CDI. CMS intact. Plan for placement of left thigh fistula in AM. Tolerating diet well. Provider Notification - Ivone Bearden RPH - 06/19/2013 8:32 PM CDT Prescriber Notification Note The pharmacist has communicated with this patient's provider regarding a concern or therapy recommendation. Notified Person: Dr. Styles Date/Time of Notification: 199906-19-13 Interaction: phone Concern/Recommendation:IN HOME SALES CONSULTANT medication ordered prior to reconciliation. I contacted pt relative Thelma Sandhu to review pts IN HOME SALES CONSULTANT medications. Dose differences of Metoprolol and Lisinopril noted between IN HOME SALES CONSULTANT medications and current in-patient orders. Was the recommendation accepted/concern addressed? Dr. Styles requested that clarification be done in AM 9-11. He was OK with Metoprolol dose being given tonight Comments/Additional Details:IN HOME SALES CONSULTANT medication list was updated per information from family member documented in this encounter Plan of Treatment Not on filedocumented as of this encounter Procedures Procedure Name Priority Date/Time Associated Comments Diagnosis INR Routine 06/21/2013 1:10 PM Results f or this CDT procedure are i n the results section. HEMOGLOBIN Routine 06/21/2013 1:10 PM Results f or this CDT procedure are i n the results section. BASIC METABOLIC PANEL Routine 06/21/2013 1:10 PM Results for this CDT procedure are i n the results section. INR Routine 06/21/2013 8:25 AM Results f or this CDT procedure are i n the results section. GLUCOSE BY METER Routine 06/20/2013 10:37 Results for this AM CDT procedure are i n the results section. GLUCOSE BY METER Routine 06/20/2013 9:29 AM Resul ts for this CDT procedure are i n the results section. GLUCOSE BY METER Routine 06/20/2013 8:20 AM Resul ts for this CDT procedure are i n the results section. CREATION, 06/20/2013 7:36 AM RENAL FAILURE ARTERIOVENOUS FISTULA, CDT LOWER EXTREMITY ABO/RH TYPE AND SCREEN STAT 06/20/2013 7:25 AM Results for this CDT procedure are i n the results section. GLUCOSE BY METER Routine 06/20/2013 6:12 AM Resul ts for this CDT procedure are i n the results section. INR Routine 06/20/2013 6:10 AM Results f or this CDT procedure are i n the results section. POTASSIUM Routine 06/20/2013 6:10 AM Results f or this CDT procedure are i n the results section. HEMOGLOBIN Routine 06/20/2013 6:10 AM Results f or this CDT procedure are i n the results section. EKG 12-LEAD, TRACING Routine 06/19/2013 5:19 PM R esults for this ONLY CDT procedure are i n the results section. POTASSIUM Routine 06/19/2013 12:15 Results for this PM CDT procedure are i n the results section. HEMOGLOBIN Routine 06/19/2013 12:15 Results for this PM CDT procedure are i n the results section. IR DIALYSIS Routine 06/19/2013 11:04 ESRF (end stage Results for this FISTULOGRAM RIGHT AM CDT renal failure) (H) proc edure are in the results section. INR STAT 06/19/2013 7:25 AM Results f or this CDT procedure are i n the results section. documented in this encounter Results (ABNORMAL) INR (06/21/2013 1:10 PM CDT) athologist Signature INR 1.79 (H) 0.86 - 1.14 [facility] Specimen Anatomical Collection Method Collection Time Receive d Time (Source) Location / / Volume Laterality Blood specimen 06/21/2013 1:10 PM 013 1:33 (specimen) CDT PM CDT Danis Anders MD LAB - BLOOD ORDERABLES Performing Organization Address City/State/ZIP Code Phon e Number [facility] [address] [id number] [facility] (ABNORMAL) Hemoglobin (06/21/2013 1:10 PM CDT) athologist Signature Hemoglobin 10.5 (L) 13.3 - 17.7 [place] g/dL [facility] Specimen Anatomical Collection Method Collection Time Receive d Time (Source) Location / / Volume Laterality Blood specimen 06/21/2013 1:10 PM 013 1:33 (specimen) CDT PM CDT Danis Anders MD LAB - BLOOD ORDERABLES Performing Organization Address City/State/ZIP Code Phon e Number [facility] [address] [place] [address] [facility] (ABNORMAL) Basic metabolic panel (06/21/2013 1:10 PM CDT) Patholo gist Method Time Signature Sodium 126 (L) 133 - 144 [place] mmol/L [facility] Potassium 5.5 (H) 3.4 - 5.3 [place] mmol/L [facility] Chloride 92 (L) 94 - 109 [place] mmol/L [facility] Carbon Dioxide 19 (L) 20 - 32 [place] mmol/L [facility] Anion Gap 14 6 - 17 [place] mmol/L [facility] Glucose 139 (H) 60 - 99 [place] mg/dL [facility] Urea Nitrogen 90 (H) 7 - 30 [place] mg/dL [facility] Creatinine 13.45 (H) 0.66 - [place] 1.25 mg/dL [facility] GFR Estimate 4 (L) >60 [place] mL/min/1.[address] LAB GFR Estimate If 5 (L) >60 [place] mL/min/1.[address] LAB Calcium 8.5 8.5 - 10.4 [place] mg/dL [facility] Specimen Anatomical Collection Method Collection Time Receive d Time (Source) Location / / Volume Laterality Blood specimen 06/21/2013 1:10 PM 013 1:33 (specimen) CDT PM CDT Danis Anders MD LAB - BLOOD ORDERABLES Performing Organization Address City/State/ZIP Code Phon e Number [facility] [address] [id number] [facility] (ABNORMAL) INR (06/21/2013 8:25 AM CDT) P athologist Signature INR 1.50 (H) 0.86 - 1.14 [facility] Specimen Anatomical Collection Method Collection Time Receive d Time (Source) Location / / Volume Laterality Blood specimen 06/21/2013 8:25 AM 013 8:42 (specimen) CDT AM CDT Dannielle Cruz [facility] - BLOOD ORDERABLES Performing Organization Address City/State/ZIP Code Phon e Number [facility] [address], [place] [address] [facility] Glucose by meter (06/20/2013 10:37 AM CDT) P athologist Signature Glucose 91 60 - 99 POINT OF CARE mg/dL TEST, GLUCOSE Specimen Anatomical Collection Method Collection Time Receive d Time (Source) Location / / Volume Laterality 06/20/2013 10:37 06/20/2013 AM CDT 10:41 AM CDT Patricia Olvera MD LAB - BEAKER POCT Performing Organization Address City/State/ZIP Code Phon e Number [facility] POINT OF CARE TEST, GLUCOSE POINT OF CARE TEST, GLUCOSE Glucose by meter (06/20/2013 9:29 AM CDT) P athologist Signature Glucose 86 60 - 99 POINT OF CARE mg/dL TEST, GLUCOSE Specimen Anatomical Collection Method Collection Time Receive d Time (Source) Location / / Volume Laterality 06/20/2013 9:29 AM 3 9:35 CDT AM CDT Patricia Olvera MD LAB - BEAKER POCT Performing Organization Address City/State/ZIP Code Phon e Number [facility] POINT OF CARE TEST, GLUCOSE POINT OF CARE TEST, GLUCOSE Glucose by meter (06/20/2013 8:20 AM CDT) P athologist Signature Glucose 92 60 - 99 POINT OF CARE mg/dL TEST, GLUCOSE Specimen Anatomical Collection Method Collection Time Receive d Time (Source) Location / / Volume Laterality 06/20/2013 8:20 AM 3 8:25 CDT AM CDT Patricia Olvera MD LAB - BEAKER POCT Performing Organization Address City/State/ZIP Code Phon e Number [facility] POINT OF CARE TEST, GLUCOSE POINT OF CARE TEST, GLUCOSE ABO/Rh type and screen (06/20/2013 7:25 AM CDT) [facility] gist Method Time Signature ABO O [facility] RH(D) Pos [facility] Antibody Neg [place] Screen [facility] Test Valid [facility] LAB Specimen 06/23/2013 [facility] Specimen Anatomical Collection Method Collection Time Receive d Time (Source) Location / / Volume Laterality Blood specimen 06/20/2013 7:25 AM 013 7:37 (specimen) CDT AM CDT Lizandro Luther MD LAB - BLOOD BANK TEST ORDER Performing Organization Address City/[facility]/ZIP Code Phon e Number [facility] [address] [place] [address] [facility] Glucose by meter (06/20/2013 6:12 AM CDT) P athologist Signature Glucose 90 60 - 99 POINT OF CARE mg/dL TEST, GLUCOSE Specimen Anatomical Collection Method Collection Time Receive d Time (Source) Location / / Volume Laterality 06/20/2013 6:12 AM 3 6:25 CDT AM CDT Patricia Olvera MD LAB - BEAKER POCT Performing Organization Address City/[facility]/ZIP Code Phon e Number FV POINT OF CARE TEST, GLUCOSE POINT OF CARE TEST, GLUCOSE (ABNORMAL) Hemoglobin (06/20/2013 6:10 AM CDT) P athologist Signature Hemoglobin 10.5 (L) 13.3 - 17.7 [place] g/dL [facility] Specimen Anatomical Collection Method Collection Time Receive d Time (Source) Location / / Volume Laterality Blood specimen 06/20/2013 6:10 AM 013 6:13 (specimen) CDT AM CDT Alvaro Cyr MD LAB - BLOOD ORDERABLES Performing Organization Address City/[facility]/ZIP Code Phon e Number [facility] [address] [place] [phone] [facility] (ABNORMAL) INR (06/20/2013 6:10 AM CDT) P athologist Signature INR 1.90 (H) 0.86 - 1.14 [facility] Specimen Anatomical Collection Method Collection Time Receive d Time (Source) Location / / Volume Laterality Blood specimen 06/20/2013 6:10 AM 013 6:13 (specimen) CDT AM CDT Alvaro Cyr MD LAB - BLOOD ORDERABLES Performing Organization Address City/State/ZIP Code Phon e Number [facility] [address] [place] [phone] [facility] Potassium (06/20/2013 6:10 AM CDT) athologist Signature Potassium 5.2 3.4 - 5.3 [place] mmol/L [facility] Specimen Anatomical Collection Method Collection Time Receive d Time (Source) Location / / Volume Laterality Blood specimen 06/20/2013 6:10 AM 6:13 (specimen) CDT AM CDT Alvaro Cyr MD LAB - BLOOD ORDERABLES Performing Organization Address City/[facility]/ZIP Code Phon e Number [facility] [address] [place] [phone] [facility] EKG 12-lead, tracing only (06/19/2013 5:19 PM CDT) Patholo gist Method Time Signature Interpretation ECG Click View RADIOLOGY Image link RESULTS to view waveform and result Specimen (Source) Anatomical Collection Method Collection Time Re ceived Time Location / / Volume Laterality 06/19/2013 5:19 PM CDT Alvaro Cyr MD ECG ORDERABLES Performing Organization Address City/State/ZIP Code Phon e Number RADIOLOGY RESULTS (ABNORMAL) Hemoglobin (06/19/2013 12:15 PM CDT) P athologist Signature Hemoglobin 11.5 (L) 13.3 - 17.7 [place] g/dL [facility] Specimen Anatomical Collection Method Collection Time Receive d Time (Source) Location / / Volume Laterality Blood specimen 06/19/2013 12:15 3 (specimen) PM CDT 12:39 PM CDT Danis Anders MD LAB - BLOOD ORDERABLES Performing Organization Address City/State/ZIP Code Phon e Number [facility] [address] [place] [phone] [facility] Potassium (06/19/2013 12:15 PM CDT) P athologist Signature Potassium 5.0 3.4 - 5.3 [place] mmol/L [facility] Specimen Anatomical Collection Method Collection Time Receive d Time (Source) Location / / Volume Laterality Blood specimen 06/19/2013 12:15 3 (specimen) PM CDT 12:39 PM CDT Danis Anders MD LAB - BLOOD ORDERABLES Performing Organization Address City/State/ZIP Code Phon e Number [facility] [address] [place] [phone] [facility] IR Dialysis Fistulogram Right (06/19/2013 11:04 AM CDT) Anatomical Region Laterality Modality Upper Extremity Radio Fluoroscopy Specimen (Source) Anatomical Collection Method Collection Time Re ceived Time Location / / Volume Laterality 06/19/2013 11:04 AM CDT Impressions 06/20/2013 12:03 PM CDT IMPRESSION: Successful revascularization of right proximal thigh loop graft. I spoke with Dr. Saravia immediatel y after the procedure and given persistent thromboses of the loop graft, plan will be for creation of left proximal thigh loop gra ft. PATRICIA OLVERA MD Narrative 06/20/2013 12:03 PM CDT INTERVENTIONAL RADIOLOGY DIALYSIS SHUNTO GRAM RIGHT 06/19/2013 11:05 AM HISTORY: 48-year-old male with end-stage renal disease and right proximal thigh loop graft for dialysis a ccess, again found to be thrombosed. Most recent examination was 05/23/2013. TECHNIQUE: Patient was brought to the In terventional Radiology Department and informed consent obtained . Patient was placed supine on the fluoroscopy table. Skin overlying the right proximal groin was prepped and draped in standard sterile f ashion. Given lack of palpable pulse, ultrasound was used to v isualize the loop graft and image was stored for documentation. 1% l idocaine used for local anesthesia. In both antegrade and retrog rade directions, access was obtained and [address] a[address]. A total of 4 mg of tPA was administered into the loop graft. 6 mm balloon angioplasty was performed throughout the graft as well a s 8 mm balloon angioplasty in the outflow vein. Possis device was used for mechanical thrombectomy and subsequently, the home restoration service cleaner device was used for mechanical thrombectomy. Through a retrograde appro ach, a CHARLI 1 catheter was advanced to the right external iliac art karol where angiogram performed. A wedge balloon catheter was then pulled through the inflow stent on multiple instances. Resi dual filling defects were noted at completion from this location. This was subsequently treated with 6 mm balloon angioplasty. Minimal i rregularity noted in the outflow segment of the loop graft, somew hat similar to previous exam. Good patency noted throughout the loop g raft. Both sheaths were heparinized remain in place as patient i s to be dialyzed as an inpatient. Sedation: 2 mg IV Versed, 100 mcg IV fen tanyl, 4 mg IV tPA directly into the loop graft, 10 mg IV hydralazin e. Sedation time: 120 minutes Please note the above medications were a dministered by the Interventional Radiology staff under my my direct supervision. Patient's vital signs were monitored and remained stable throughout the procedure. Fluoroscopic time: 11.6 minutes Contrast: 100 mL of Isovue administered IV and intra-arterially without complication. Local anesthetic: 7 mL of 1% lidocaine. FINDINGS: Thrombosis of proximal right t high loop graft. Patency was restored after mechanical thrombectomy, tPA, and balloon angioplasty performed throughout the loop graft. 8 m m balloon angioplasty in the outflow segment at 6 mm throughout the r emaining segments. Minimal residual filling defect in the venous se gment of the loop graft, despite multiple repeat balloon angiopla sties and mechanical thrombectomy with Possis device and kisha ner. Procedure Note Patricia Olvera MD - 06/20/2013 INTERVENTIONAL RADIOLOGY DIALYSIS SHUNTO GRAM RIGHT 06/19/2013 11:05 AM HISTORY: 48-year-old male with end-stage renal disease and right proximal thigh loop graft for dialysis a ccess, again found to be thrombosed. Most recent examination was 05/23/2013. TECHNIQUE: Patient was brought to the In terventional Radiology Department and informed consent obtained . Patient was placed supine on the fluoroscopy table. Skin overlying the right proximal groin was prepped and draped in standard sterile f ashion. Given lack of palpable pulse, ultrasound was used to v isualize the loop graft and image was stored for documentation. 1% l idocaine used for local anesthesia. In both antegrade and retrog rade directions, access was obtained and [address] aced. A total of 4 mg of tPA was administered into the loop graft. 6 mm balloon angioplasty was performed throughout the graft as well a s 8 mm balloon angioplasty in the outflow vein. Possis device was used for mechanical thrombectomy and subsequently, the home restoration service cleaner device was used for mechanical thrombectomy. Through a retrograde appro ach, a CHARLI 1 catheter was advanced to the right external iliac art karol where angiogram performed. A wedge balloon catheter was then pulled through the inflow stent on multiple instances. Resi dual filling defects were noted at completion from this location. This was subsequently treated with 6 mm balloon angioplasty. Minimal i rregularity noted in the outflow segment of the loop graft, somew hat similar to previous exam. Good patency noted throughout the loop g raft. Both sheaths were heparinized remain in place as patient i s to be dialyzed as an inpatient. Sedation: 2 mg IV Versed, 100 mcg IV fen tanyl, 4 mg IV tPA directly into the loop graft, 10 mg IV hydralazin e. Sedation time: 120 minutes Please note the above medications were a dministered by the Interventional Radiology staff under my my direct supervision. Patient's vital signs were monitored and remained stable throughout the procedure. Fluoroscopic time: 11.6 minutes Contrast: 100 mL of Isovue administered IV and intra-arterially without complication. Local anesthetic: 7 mL of 1% lidocaine. FINDINGS: Thrombosis of proximal right t high loop graft. Patency was restored after mechanical thrombectomy, tPA, and balloon angioplasty performed throughout the loop graft. 8 m m balloon angioplasty in the outflow segment at 6 mm throughout the r emaining segments. Minimal residual filling defect in the venous se gment of the loop graft, despite multiple repeat balloon angiopla sties and mechanical thrombectomy with Possis device and kisha ner. IMPRESSION IMPRESSION: Successful revascularization of right proximal thigh loop graft. I spoke with Dr. Saravia immediatel y after the procedure and given persistent thromboses of the loop graft, plan will be for creation of left proximal thigh loop gra ft. PATRICIA OLVERA MD G Jagdeep Holman MD IMG IR ORDERABLES (ABNORMAL) INR (06/19/2013 7:25 AM CDT) P athologist Signature INR 2.42 (H) 0.86 - 1.14 [facility] Specimen Anatomical Collection Method Collection Time Receive d Time (Source) Location / / Volume Laterality Blood specimen 06/19/2013 7:25 AM 013 7:34 (specimen) CDT AM CDT Patricia Olvera MD LAB - BLOOD ORDERABLES Performing Organization Address City/State/ZIP Code Phon e Number [facility] [address] [place] [address] [facility] documented in this encounter Visit Diagnoses Not on filedocumented in this encounter Administered Medications Inactive Administered Medications - up to 3 most recent administrations Medication Order MAR Action Action Date Dose Rate Site 250mL NaCl/2,500 Given 06/20/2013 8:15 2,500 Units Op erative Units heparin AM CDT Site/Surgical S ite PRN, Starting on Tue06/20/13 at 0815, Intra-procedure BUPivacaine (MARCAINE) Given 06/20/2013 10:00 AM 30 mLs Operative Site/Surgical injection 0.5% PF CDT Site PRN, Starting on Tue06/20/13 at 1000, Intra-procedure documented in this encounter Active and Recently Administered Medications Times are shown in CDT. Scheduled Medication Order 06/19/2013 06/20/2013 06/21/2013 alteplase (CATHFLO ACTIVASE) injection 4 mg (COMPLETED ) 0845 (Given - Provider: Layla Garcia RN) 4 mg, Intravenous, ONCE, Tue06/19/13 at 0915, For 1 dose, Given per Dr. Olvera into fistula, IR Intra-procedure B aiiscwa-A-twztm acid (NEPHROCAPS) capsule 1 mg (CANC ELED) 2244 (Given - Provider: Nola Lizarraga RN) 0629 (Auto Hold - Provider: Orders Gener ic Provider - Reason: Transfer to a procedural area)1159 (Unhold - Provider: Orders Generic Provider)204 (Given - Provider: Tricia Shipley, RN)2200 (Canceled Entry - Provider: Tricia Shipley, RN) 1 capsule = 1 mg, Oral, AT BEDTIME, First dose on 9/10/13 at 2200 bisacodyl (DULCOLAX) EC tablet 10 mg (CANCELED) 2244 ( Given - Provider: Nola Lizarraga RN) 0629 (Auto Hold - Provider: Orders Gener ic Provider - Reason: Transfer to a procedural area)0900 (Automatically Held - Provider: Orders Generic Provider)1159 (Unhold - Provider: Orders Generic Provider)2043 (Given - Provider: Tricia Shipley RN) 1106 (Not Given - Provider: Yolanda magana RN - Reason: Contraindicated) 10 mg, Oral, 2 TIMES DAILY, First dose on Tue06/19/13 at 2100, D O NOT CRUSH. calcium acetate (PHOSLO) capsule 1,334-2,001 mg (CANCE LED) 2244 (Given - Provider: Nola Lizarraga RN) 0629 (Auto Hold - Provider: Orders Gener ic Provider - Reason: Transfer to a procedural area)0900 (Automatically Held - Provider: Orders Generic Provider)1159 (Unhold - Provider: Orders Generic Provider)1244 (Given - Provider: Sabine Rondon RN) 1106 (Not Given - Provider: Yolanda Ventura RN - Reason: Contraindicated)1153 (Given - Provider: Yolanda Ventura RN)1714 (Given - Provider: Tricia Shipley RN) 1,334-2,001 mg, Oral, 3 TIMES DAILY WITH MEALS, First dose on Tue06/19/13 at 1800, Best if given with meals. Take with meals. 1806 (Given - Provider: Tricia Shipley RN) heparin (porcine) injection 500 Units (COMPLETED) 1310 (Given - Provider: Stephanie Bo, LINDA) 500 Units, Hemodialysis Machine, ONCE IN DIALYSIS, Padmaja 06/21/13 at 0700, For 1 dose, LOADING DOSE, Dialysis hydrALAZINE (APRESOLINE) injection 10 mg (COMPLETED) 1 005 (Given - Provider: Layla Garcia, LINDA) 10 mg, Intravenous, ONCE, Tue06/19/13 at 1015, For 1 dose, May repeat x 1, IR Intra-procedure iopamidol (ISOVUE-300) IV solution 61% 100 mL (COMPLET ED) 1033 (Given - Provider: Edin Hidalgo) 100 mL, Intravenous, ONCE, Tue06/19/13 at 0815, For 1 dose, IR Intra-procedure lisinopril (PRINIVIL,ZESTRIL) tablet 40 mg (CANCELED) 0629 (Auto Hold - Provider: Orders Generic Provider - Reason: Transfer to a procedural area)0900 (Automatically Held - Provider: Orders Generic Provider)1159 (Unhold - Provider: Orders Generic Provider) 1106 (Hold - Provider: Elva Riojas - Reason: Contraindicated - Comment: will give after HD)1714 (Given - Provider: Tricia Shipley RN - Comment: given after dialysis) 40 mg, Oral, DAILY, First dose on Tue06/20/13 at 0900 metoprolol (LOPRESSOR) tablet 100 mg (CANCELED) 2244 ( Given - Provider: Nola Lizarraga RN) 0629 (Auto Hold - Provider: Orders Gener ic Provider - Reason: Transfer to a procedural area)0900 (Automatically Held - Provider: Orders Generic Provider)115 (Unhold - Provider: Orders Generic Provider)204 (Given - Provider: Tricia Shipley RN) 110 (Hold - Provider: Elva Riojas - Reason: Contraindicated - Comment: will give after HD) 100 mg, Oral, 2 TIMES DAILY, First dose on Tue06/19/13 at 2100 simvastatin (ZOCOR) tablet 40 mg (CANCELED) 0629 (Auto Hold - Provider: Orders Generic Provider - Reason: Transfer to a procedural area)115 (Unhold - Provider: Orders Generic Provider)2042 (Given - Provider: Tricia Shipley RN)2200 (Canceled Entry - Provider: Tricia Shipley RN) 40 mg, Oral, AT BEDTIME, First dose on Tue06/20/13 at 2200 sodium chloride (PF) 0.9% PF flush 3 mL (CANCELED) 0516 (Given - Provider: Ira Wells RN)0629 (Auto Hold - Provider: Orders Generic Provider - Reason: Transfer to a procedural area)1159 (Unhold - Provider: Orders Generic Provider) 0647 (Not Given - Provider: Guru Plolard RN - Reason: Other - Comment: duplicate)170 (Not Given - Provider: Tricia Shipley RN - Reason: Patient not available)171 (Given - Provider: Tricia Shipley RN) 3 mL, Intracatheter, EVERY 8 HOURS, First dose on Tue 3 at 0515 1400 (Given - Provider: Sabine Rondon RN - Comment: flushed IV when IVF dc'd. forgot to scan.)2030 (Given - Provider: Tricia Shipley RN) sodium chloride (PF) 0.9% PF flush 3 mL (CANCELED) 1458 (Not Given - Provider: Sabine Rondon RN - Reason: IV Infusing)2032 (Canceled Entry - Provider: Tricia Shipley RN) 0647 (Given - Provider: lEva Hartman)1215 (Canceled Entry - Provider: Orders Generic Provider) 3 mL, Intravenous, EVERY 8 HOURS, First dose on Tue06/20/13 at 1215, to lock peripheral IV dormant line. Also Ordered Q1H PRN, Post-procedure sodium chloride 0.9 % BOLUS 250-1,000 mL (COMPLETED) 1310 (New Bag - Provider: Stephanie Bo RN - Comment: prime) Intravenous, 250-1,000 mL, ONCE IN DIALY SIS, Padmaja 06/21/13 at 0700, For 1 dose, For patient prime during dialysis, Dialysis warfarin (COUMADIN) tablet 2.5 mg (COMPLETED) 1806 (Given - Provider: Tricia Shipley RN) 2.5 mg, Oral, ONCE AT 6PM, Tue06/20/13 at 1800, For 1 dose Continuous Medication Order 06/19/2013 06/20/2013 06/21/2013 0.9 % sodium chloride IV solution (CANCELED) 0645 (New Bag - Provider: Wu Maxwell RN)0746 (Anesthesia Volume Adjustment - Provider: Jessie Dorsey APRN LIGHT BULB REPLACER) at 10 mL/hr, Intravenous, CONTINUOUS, Pre-procedure heparin 10,000 units/10 mL drip (DIALYSIS USE) (CANCELED) 1633 (New Bag - Provider: Stephanie Bo RN) 500 Units/hr = 0.5 mL/hr, Hemodialysis M achine, at 0.5 mL/hr, CONTINUOUS, Starting Padmaja 06/21/13 at 0700, DURING DIALYSIS TREATMENT, Dialysis PRN Medication Order 06/19/2013 06/20/2013 06/21/2013 250mL NaCl/2,500 Units heparin (CANCELED) 0815 (Given - Provider: Rober Saravia MD - Comment: prn) PRN, Starting Tue06/20/13 at 0815, Intra-procedure BUPivacaine (MARCAINE) injection 0.5% PF (CANCELED) 1000 (Given - Provider: Rober Saravia MD) PRN, Starting Tue06/20/13 at 1000, Intra-procedure fentaNYL (SUBLIMAZE) injection 25-50 mcg (CANCELED) 08 35 (Given - Provider: Layla Garcia RN)0845 (Given - Provider: Layla Garcia, RN)0900 (Given - Provider: Layla Garcia RN)0935 (Given - Provider: Layla Garcia RN) 25-50 mcg, Intravenous, for 2 Minutes, E VERY 5 MIN PRN, Starting Tue06/19/13 at 0818, severe pain, If inadequate response may repeat 25 mcg IV slowly Q 5 min PRN severe pain, Doses can be exceeded under direct oversight of patient by physician., IR Intra-procedure lidocaine (PF) (XYLOCAINE) 1 % injection 1-30 mL (COMP LETED) 1014 (Given - Provider: Layla Garcia, LINDA) 1-30 mL, Subcutaneous, ONCE PRN, for loc al anesthetic.?When verbally ordered by prescriber during the procedure., Starting Tue06/19/13 at 0818, For 1 dose, Dose to be divided into smaller volumes appropriate for the procedure., IR Intra-procedure midazolam (VERSED) injection 0.5-1 mg (CANCELED) 0835 (Given - Provider: Layla Garcia RN)0845 (Given - Provider: Layla Garcia, LINDA)0900 (Given - Provider: Layla Garcia, LINDA)0935 (Given - Provider: Layla Garcia, LINDA) 0.5-1 mg, Intravenous, for 1 Minutes, EV KAROL 4 MIN PRN, Starting Tue06/19/13 at 0818, sedation, If inadequate response may repeat 0.5 mg IV slowly Q 4 minutes PRN sedation until desired response., Doses can be exceeded under direct oversight o f patient by physician., IR Intra-procedure ondansetron (ZOFRAN) injection 4 mg (CANCELED) 1123 (Given - Provider: Claudia Pace, LINDA) 4 mg, Intravenous, EVERY 30 MIN PRN, trina sea, for 2 Minutes, Starting Tue06/20/13 at 1119, For 2 doses, MAX total dose = 8 mg, including OR dosing. If not resolved in 15 minutes, then go to step 2 (Prochlorperazine if ordered)., PACU phenol-menthol (CEPASTAT) lozenge 1-2 lozenge (CANCELED) 1236 (Given - Provider: Sabine Rondon RN)1610 (Given - Provider: Tricia Shipley, LINDA)2045 (Given - Provider: Tricia Shipley, LINDA) 0013 (Given - Provider: Elva Hartman) 1-2 lozenge, Buccal, EVERY 1 HOUR PRN, s ore throat, Starting Tue06/20/13 at 1213, For sore throat without fever., Post-procedure documented in this encounter Care Teams Director Regulatory Compliance Relationship Specialty Start Date End Date Preet Huff PCP - General 06/24/11 documented as of this encounter
--- OUTSIDE RECORDS SUMMARY | 2022-09-01 20:22 | XMS_ITS | Encounter Summary ---
:1965 Author Organization [place] Address [address] [facility] [place] [address] Care Team Providers Name Role Phone Preet Huff Primary Care Provider Reason for Visit Reason Onset Date Comments Clinic Care Coordination - Follow-up 07/11/2013 Encounter Details Date Type Department Care Team Description [facility] Shital Oviedo MD Coordination - [address] [place] [phone] [place] [phone] (Wo rk) Social History Tobacco Use Types Packs/Day Years Used Date Smoking Tobacco: Never Smokeless Tobacco: Never Alcohol Use Standard Drinks/Week Comments No 0 (1 standard drink = 0.6 oz pure alcoho l) Sex Assigned at Date Recorded Not on file documented as of this encounter Miscellaneous Notes Telephone Encounter - Jovana Wilkinson - 07/11/2013 4:48 PM CDT Chey Pérez NP called / LM with update that Herminio bled heavily from AVF when he was exercising on stationary bike. He was taken to [facility] where there were not able to control the bleeding sohe was [place] [facility] [place]. HX: Pt had Left groin femoral artery to superficial femoral vein AVF with PTFE on 06-20-13. Will notify Dr. Saravia. Jovana Wilkinson, RN CVN documented in this encounter Plan of Treatment Not on filedocumented as of this encounter Visit Diagnoses Not on filedocumented in this encounter Care Teams Civil Engineering Assistant Relationship Specialty Start Date End Date Preet Huff PCP - General 06/24/11 documented as of this encounter
--- OUTSIDE RECORDS SUMMARY | 2022-09-01 20:22 | XMS_ITS | Encounter Summary ---
:1965 Author Organization [place] Address [address] [place] [id number] Care Team Providers Name Role Phone Preet Huff Primary Care Provider Encounter Details Date Type Department Care Team Description 06/18/[address] [facility] AteMarisa mai A, ESRF ( end stage renal [place] Interventional DAY CARE WORKER julianna lure) (H) (Primary Radiology Dx) [address] [place] [phone] Social History Tobacco Use Types Packs/Day Years Used Date Smoking Tobacco: Never Smokeless Tobacco: Never Alcohol Use Standard Drinks/Week Comments No 0 (1 standard drink = 0.6 oz pure alcoho l) Sex Assigned at Date Recorded Not on file documented as of this encounter Plan of Treatment Not on filedocumented as of this encounter Visit Diagnoses Diagnosis ESRF (end stage renal failure) (H) - Tamara puga End stage renal disease documented in this encounter Care Teams Lead Javascript Engineer Relationship Specialty Start Date End Date Preet Huff PCP - General 06/24/11 documented as of this encounter
--- OUTSIDE RECORDS SUMMARY | 2022-09-01 20:22 | XMS_ITS | Encounter Summary ---
:1965 Author Organization [place] Address [address] [facility] [place] [address] Care Team Providers Name Role Phone Preet Huff Primary Care Provider Reason for Visit Reason Onset Date Comments Medication Question 06/03/2014 Encounter Details Date Type Department Care Team Description 06/03/2014 Telephone [facility] Jaxon Saravia on Question [facility] Mk Oviedo MD [address] [place] [phone] [address] [place] [phone] (Wo rk) Social History Tobacco Use Types Packs/Day Years Used Date Smoking Tobacco: Never Smokeless Tobacco: Never Alcohol Use Standard Drinks/Week Comments No 0 (1 standard drink = 0.6 oz pure alcoho l) Sex Assigned at Date Recorded Not on file documented as of this encounter Miscellaneous Notes Telephone Encounter - Jovana Wilkinson RN - 06/03/2014 3:31 PM CDT Thelma called to clarify if Herminio was to hold Coumadin prior to left leg PTFE dialysis access debridement tomorrow; I reviewed Dr. Saravia's orders and informed her that he is to hold for 1 day - so no Coumadin today. She is comfortable with plan. Jovana Wilkinson RN CVN documented in this encounter Plan of Treatment Not on filedocumented as of this encounter Visit Diagnoses Not on filedocumented in this encounter Care Teams Gas Fitter Helper Relationship Specialty Start Date End Date Preet Huff PCP - General 06/24/11 documented as of this encounter
--- OUTSIDE RECORDS SUMMARY | 2022-09-01 20:22 | XMS_ITS | Encounter Summary ---
:1965 Author Organization [place] Address [address] [place] [address] Care Team Providers Name Role Phone Preet Huff Primary Care Provider Reason for Visit Reason Onset Date Comments Other 05/30/2014 post op problem Encounter Details Date Type Department Care Team Description 05/30/2014 Telephone [facility] Jaxon Saravia Other (p ost op problem) [facility] [place] MD [address] [place] [address] [place] [id number] (Wo rk) Social History Tobacco Use Types Packs/Day Years Used Date Smoking Tobacco: Never Smokeless Tobacco: Never Alcohol Use Standard Drinks/Week Comments No 0 (1 standard drink = 0.6 oz pure alcoho l) Sex Assigned at Date Recorded Not on file documented as of this encounter Miscellaneous Notes Telephone Encounter - Roshni Cornejo RN - 05/30/2014 1:02 PM CDT Spoke with Dr. Saravia who would like the patient to come in next week for debridement. Blue surgery form filled out and given to scheduling to arrange. Roshni Cornejo BSN Telephone Encounter - Roshni Cornejo RN - 05/30/2014 10:15 AM CDT Images from the original note were not included. Teo from [facility] called regarding a post-op problem from the Left leg loop graft pseudoaneurysm excision performed on 05/08/[address] Saravia. Teo reports that the distal end of the arterialside incision has a 2cm firm but not hard lump with dehiscence that is oozing serous drainage. They cultured it today, and have started patient on Ancef. MD there recommended that the patient see Dr. Saravia. Will route to Dr. Saravia for review. Roshni Cornejo BSN documented in this encounter Plan of Treatment Not on filedocumented as of this encounter Visit Diagnoses Not on filedocumented in this encounter Care Teams Ehs Engineer Relationship Specialty Start Date End Date Preet Huff PCP - General 06/24/11 documented as of this encounter
--- OUTSIDE RECORDS SUMMARY | 2022-09-01 20:22 | XMS_ITS | Encounter Summary ---
:1965 Author Organization [place] Address [address] [place] [address]. [place] [address] Care Team Providers Name Role Phone Preet Huff Primary Care Provider Encounter Details Date Type Department Care Team Description 06/18[facility]2013 [facility] Interventional Radio logy RN [address] [place] [address] [place] [phone] [address] [place], [place] [address] Social History Tobacco Use Types Packs/Day Years [...] on filedocumented in this encounter Care Teams Fish Stringer Assembler Relationship Specialty Start Date End Date Preet Huff PCP - General 06/24/11 documented as of this encounter
--- OUTSIDE RECORDS SUMMARY | 2022-09-01 20:22 | XMS_ITS | Encounter Summary ---
:1965 Author Organization [place] Address [address] [place] [address] Care Team Providers Name Role Phone Huff Preet Hans Primary Care Provider Encounter Details Date Type Department Care Team Description 04/24/2014 Hospital Encounter [facility] Wojciech Holman Comp lication of [facility] MD Jagdeep vascular access for [address] INTERMED dialysis, i nitial [facility] encounter [id number] [place] [address] [address] [place] [id number] Social History Tobacco Use Types Packs/Day Years [...] 0 D3 PO) mouth every evening b [id number] acid Take 1 capsule by 0 03/04/2016 [...] Associated Diagnosis Comme nts US EXTREMITY Routine 04/24/2014 12:52 Complication of Results for this ARTERIAL VENOUS PM CDT vascular access for crow pelletier are in DIALYSIS ACCESS dialysis, initial the res ults GRAFT encounter section. documented in this encounter Results US Ext Arterial Venous Dialys Acs Graft (04/24/2014 12:52 PM CDT) Anatomical Region Laterality Modality Vascular, Abdomen/Pelvis Ultrasound Specimen (Source) Anatomical Location Collection Method / Collectio n Time Received Time / Laterality Volume Impressions 04/24/2014 5:05 PM CDT IMPRESSION: Ultrasound suggest focal stenoses at the arterial and venous anastomoses of the left profunda femoris artery to superficial femoral vein PTFE bypass graft. Further evaluation and possible angioplasty could be performed with an a ngiogram. MICHELE FUENTES MD Narrative 04/24/2014 5:05 PM CDT US EXTREMITY ARTERIAL VENOUS DIALYSIS ACCESS GRAFT ??04/24/2014 12:52 PM HISTORY: ??49-year-old male with a left profunda femoris artery to superficial femoral vein loop PTFE bypas s graft. COMPARISON: None. FINDINGS: The graft is patent. Again bishop ntified are areas of increased velocity in visible narrowing at the art erial and venous anastomoses. Peak velocities in these areas equal 530 and 414 cm/s respectively. . There is a 3.5 x 1.8 x 1.8 cm pseudoaneu rysm in the mid arterial limb of the graft. There is a small thrombose d pseudoaneurysm in the mid venous limb. Procedure Note Michele Fuentes MD - 04/24/2014F ormatting of this note might be different from the original. US EXTREMITY ARTERIAL VENOUS DIALYSIS AC CESS GRAFT 04/24/2014 12:52 PM HISTORY: 49-year-old male with a left pr ofunda femoris artery to superficial femoral vein loop PTFE bypas s graft. COMPARISON: None. FINDINGS: The graft is patent. Again bishop ntified are areas of increased velocity in visible narrowing at the art erial and venous anastomoses. Peak velocities in these areas equal 530 and 414 cm/s respectively. . There is a 3.5 x 1.8 x 1.8 cm pseudoaneu rysm in the mid arterial limb of the graft. There is a small thrombose d pseudoaneurysm in the mid venous limb. IMPRESSION IMPRESSION: Ultrasound suggest focal rachel noses at the arterial and venous anastomoses of the left profunda femoris artery to superficial femoral vein PTFE bypass graft. Further evaluation and possible angioplasty could be performed with an a ngiogram. MICHELE FUENTES MD G Jagdeep Holman MD IMG ORDERABLES documented in this encounter Visit Diagnoses Diagnosis Complication of vascular access for dial ysis, initial encounter documented in this encounter Care Teams Napper Fixer Relationship Specialty Start Date End Date Preet Huff PCP - General 06/24/11 documented as of this encounter
--- OUTSIDE RECORDS SUMMARY | 2022-09-01 20:22 | XMS_ITS | Encounter Summary ---
:1965 Author Organization [facility] Address [address] [facility] [place] [address] Care Team Providers Name Role Phone Preet Huff Primary Care Provider Reason for Visit Auth/Cert - Closed Specialty Diagnoses / Procedures Referred By Contact Refer red To Contact Surgery Diagnoses clotted off RENAL FAILURE [id number] Main Or Procedures ir dept fistual 0730am CREATE FISTULA ARTERIOVENOUS LOWER EXTREMITY [address] [place] [address] Phone: Fax: Referral ID Status Reason Start Date Expiration Date Visits Requ ested Visits Authorized [id number] Closed 1 1 Encounter Details Date Type Department Care Team Description [facility] (Primary Dx); 06/21/2013 Encounter Ariane Andrade MD A-V fistula (H) Intermediate [facility] [address] [place] [address] [address] [facility] [phone] [address] [place] [address] Social History Tobacco Use Types Packs/Day Years Used Date Smoking Tobacco: Never Smokeless Tobacco: Never Alcohol Use Standard Drinks/Week Comments No 0 (1 standard drink = 0.6 oz pure alcoho l) Sex Assigned at Date Recorded Not on file documented as of this encounter Last Filed Vital Signs Vital Sign Reading Time Taken Comments Blood Pressure 123/56 06/21/2013 5:05 PM CDT Pulse 74 06/20/2013 5:16 AM CDT Temperature 37.1 ??C (98.8 ??F) 06/21/2013 4:45 PM CDT Respiratory Rate 16 06/21/2013 5:05 PM CDT Oxygen Saturation 97% 06/21/2013 11:36 AM CDT Inhaled Oxygen Concentration - - Weight 83.4 kg (183 lb 13.8 oz) 06/21/2013 7:23 AM CDT Bed wt Height 162.6 cm (5' 4) 06/19/2013 6:43 [...] underwent dialysis without difficulty using his revascularized Norton- Rubin graft and he wasdischarged to follow up at the [facility] dialysis unit. DISCHARGE PLAN: 1. The patient will have dialysis on a Tuesday, , Tuesday at the [facility] dialysis unit per Dr. Holman. 2. He will resume his predischarge medications as listed in the discharge orders. 3. His new PTFE graft on the left will be ready for use in 2-3 weeks pending evaluation by Dr. Holman. DANIS ADNERS MD MT: nr Name: JULIO CESAR SANDHU Account: [id number] : 1965 Admit Date: [id number] Discharge Date: 06/21/2013 Document: [id number] documented in this encounter Discharge Instructions Discharge InstructionsMiTricia coughlin RN - 06/21/2013 5:47 PM CDT Monitor Left and Right groin dialysis fistulas for bleeding, soreness, signs of infection. documented in this encounter Medications at Time of Discharge Medication Sig Dispensed Refills Start Date End Date Cholecalciferol (VITAMIN Take 2,000 Units by 0 D3 PO) mouth every evening b vdxsrpc-R-jatoj acid Take 1 capsule by 0 03/04/2016 [...] Rm Non-Provider - 07/07/2013 4:12 PM CDT Stephanie Bo RN - 06/21/2013 4:02 PM [...] run report given to Tricia Shipley Rn [email or web address] see [facility] for run details Jeanna Arcos Danis Anders MD - 06/21/2013 3:48 PM CDT Assessment and Plan: ESRD: HD today for clearance and 3 L UF. D/C with F/[facility]. Interval History: Doing well s/p left femoris profundus to femoral vein PTFE loop graft. Excellent thrill in graft. Minimal pain. -Home likely after dialysis -Continue using RLE loop graft until left has time to mature (2-3 weeks) -Resume all TUBE AND ROD STRAIGHTENER medications Review of Systems: No C/O. Medications: [...] ??? heparin (Porcine) Lock Flush ??? B iifavle-E-sdqqm acid 1 capsule Oral At Bedtime ??? bisacodyl 10 mg Oral BID ??? calcium acetate 1,334-2,001 mg Oral TID w/meals ??? lactulose 40 g Oral Daily ??? lisinopril (PRINIVIL,ZESTRIL) tablet 40 mg 40 mg Oral Daily ??? metoprolol 100 mg Oral BID ??? simvastatin 40 mg Oral At Bedtime ??? heparin (porcine) ??? Warfarin Therapy Reminder Current active medications and TUBE AND ROD STRAIGHTENER medications reviewed, see medication list for details. [...] thrill Weights (last 365 days) Date/Time Weight Who 06/21/13 0723 83.4 kg (183 lb 13.8 [...] this basename: AST:3,ALT:3,GGT:3,ALKPHOS:3,BILITOTAL:3,BILICONJ:3,BILIDIRECT:3,B ILIRUBININDIRECT:3,DARLINE:3 in the last 00805 hours No results found for this basename: MA in the last 79498 hours Recent Labs Lab Test 08/10/12 0810 [...] arranged at d/c. SW has contacted R n S and unfortunately transport schedule is full for the day. Transport services provided alternative transport options that would likely be covered under pt insurance. SW has contact [employer] to attempt ride set up. SW was informed that a ride would be possible for today. [employer] is verifying insurance coverage for their service and will notify SW when this is confirmed. P: SW to follow and assist with transport back to back home in [place], [place]. ADDENDUM: Pt will be picked up by [employer] at 1800 this evening, 06/21. Pt [facility] door [facility]door [facility] at this time for pickup. has given transportation agency unit phone number/[facility] number if any issues arise prior to d/c. No further needs. Nely Crocker, PERLA, PELT GRADER Rober Saravia MD - 06/21/2013 7:19 AM CDT Surgery Doing well s/p left femoris profundus to femoral vein PTFE loop graft. Excellent thrill in graft. Minimal pain. -Home likely after dialysis -Continue using RLE loop graft until left has time to mature (2-3 weeks) -Resume all TUBE AND ROD STRAIGHTENER medications S: No complaints this AM. O: [...] plan HD in am. Then D/C to [facility] Outpt dialysis S/P Left groin profundus femoral artery to superficial femoral vein loop 4x7 mm Propaten PTFE dialysis graft. Interval History: 48 yo M ESRD on HD [facility] -. Long history of access problems. No access options in upper extremity. Running on right thigh loop graft. Multiple declots including today. Many stents and no optimism for longterm patency. Dr. Saravia plans loop graft on [...] ??? heparin (Porcine) Lock Flush ??? B bpkuuma-L-yesgj acid 1 capsule Oral At Bedtime ??? [...] DISCONTD: heparin (porcine) Current active medications and TUBE AND ROD STRAIGHTENER medications reviewed, see medication list for details. [...] all connections secured. Patient was seen by [facility]. Total heparin received during treatment:: 1000units. Meds given:none. Complications :Unable to incr BFR due to sheaths. Procedure and ESRD teaching done and questions answered. See flowsheet in [facility] for further details. RO log completed Prime given: NS Saline double clamped and Arterial/Venous parameters set. Patient transported via cart to the dialysis unit Aseptic prep done for both on/off. Transducer connectors checked q15 minutes with vital sign check : Report received from:Layla Garcia RN/IR Report given to:Nola Lizarraga RN Outpatient Dialysis at [facility] Alvaro Cyr MD - 06/19/2013 2:24 PM [...] History: 48 yo M ESKD on HD [facility] . Long history of access problems. No access options in upper extremity. Running on right thigh loop graft. Multiple declots including today. 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 Dr. Saravia plans loop graft on [...] low dose Medications and Allergies: Reviewed in [facility] ??? heparin (porcine) ??? iopamidol 100 mL [...] darline Physical Exam: Vitals were reviewed in [facility] Wt Readings from Last 3 Encounters: 05/23/13 [...] medications, labs and imaging. Alvaro Cyr MD, MD [facility] - Nephrology [phone] Rober Saravia MD - 06/19/2013 12:43 PM CDT Vascular Surgery Progress Note S:Om Dialysis via right groin graft O: Vitals: BP Min: 155/79 Max: 238/107 Temp Av ??F (36.1 ??C) Min: 96.6 ??F (35.9 ??C) Max: 97.4 ??F (36.3 ??C) Pulse Av.8 Min: 60 Max: 68 Physical Exam: +3 left pedal pulses with no edema. Chest=clear CV=RR Angio reviewed: Graft re-opened and TUBE AND ROD STRAIGHTENER performed. Evidence of chronic changes from access [...] - 06/19/2013 10:51 AM CDT Return to [address] Anders paged as requested [...] Start Time: 834 End of procedure time: 103 Procedure: Fistulagram with possible revascularization and possible tunneled catheter placement Report given to: Jazmín MCKEON Time pt departs: 1040 Extermination Supervisor: Other Notes: Pt consented. Dr. Olvera present. VSS. Pt prepped and draped. Sedation given. Right thigh fistula accessed. Fistulagram done. TPA [address] Olvera into clotted fistula. Thrombolysis done with Angiojet to remove clot. Angioplasty done to several areas of loop fistula and within stent. Improved blood flow. Pt tolerated procedure well. Dr. Mason updated. [facility] and dialysis here. Then pt will return to [facility] dialysis to return home. Report given to emergency management coordinator and [facility]. Layla Garcia Isis Parikh RN - 06/19/2013 7:29 AM CDT Attempted to locate Julio Cesar's mother in lobby to verify TUBE AND ROD STRAIGHTENER meds. No answer to pager at this time. Will verify when able. Isis Neff RN - 06/19/2013 7:14 AM CDT Per [...] Mother here today with pt. Will clarify TUBE AND ROD STRAIGHTENER meds with here. Pt states he would [...] Name: JULIO CESAR SANDHU MRN: [id number] Account: [id number] : 1965 Admitted: [id number] Document: [id number] cc: [facility] Itzel Saravia MD documented [...] Individualization/Patient-Specific Goal (Adult,OB,Behavioral The patient and/or their aircraft sales representative will achieve their patient-specific goals [...] Individualization/Patient-Specific Goal (Adult,OB,Behavioral The patient and/or their aircraft sales representative will achieve their patient-specific goals [...] Individualization/Patient-Specific Goal (Adult,OB,Behavioral The patient and/or their aircraft sales representative will achieve their patient-specific goals [...] Individualization/Patient-Specific Goal (Adult,OB,Behavioral The patient and/or their aircraft sales representative will achieve their patient-specific goals [...] Sincerely, Layla Sahu MD MPH Utilization Review [facility]. Plan of Care - Sabine Rondon RN - 06/20/2013 3:04 PM CDT Problem: IP GENERAL POC-ADULT,OB,BEHAVIORAL FVCPM Goal: Individualization/Patient-Specific Goal (Adult,OB,Behavioral The patient and/or their aircraft sales representative will achieve their patient-specific goals [...] to monitor. Provider Notification - [facility] - 06/20/2013 2:28 PM CDT Call placed to Dr. Anders to clarify home doses of TUBE AND ROD STRAIGHTENER meds that were originally order with different [...] home prior to admission. [facility] PharmD Electronically signed by [facility] at 06/20/2013 2:31 PM CDT Op Note - Rober Saravia MD - 06/20/2013 10:07 AM CDT Cosmetology Educator: Kendall Ramirez MD ([facility] Surgery Resident) PREOPERATIVE DIAGNOSIS: Failing right groin [...] Name: JULIO CESAR SANDHU MRN: [id number] Account: [id number] : 1965 Procedure Date: 06/20/2013 Document: [id number] cc: [facility] Jagdeep RAMIREZ MD Provider Notification - Ira [...] Individualization/Patient-Specific Goal (Adult,OB,Behavioral The patient and/or their aircraft sales representative will achieve their patient-specific goals [...] Styles Date/Time of Notification: 199906-19-13 Interaction: phone Concern/Recommendation:TUBE AND ROD STRAIGHTENER medication ordered prior to reconciliation. I contacted pt relative Thelma Sandhu to review pts TUBE AND ROD STRAIGHTENER medications. Dose differences of Metoprolol and Lisinopril noted between TUBE AND ROD STRAIGHTENER medications and current in-patient orders. Was the recommendation accepted/concern addressed? Dr. Styles requested that clarification be done in AM 9-11. He was OK with Metoprolol dose being given tonight Comments/Additional Details:TUBE AND ROD STRAIGHTENER medication list was updated per information from [...] Signature INR 1.79 (H) 0.86 - 1.14 [facility] Specimen Anatomical Collection Method Collection Time Receive d Time (Source) Location / / Volume Laterality Blood specimen 06/21/2013 1:10 PM 013 1:33 (specimen) CDT PM CDT Danis Anders MD LAB - BLOOD ORDERABLES Performing Organization Address City/[facility]/ZIP Code Phon e Number [facility] [address] [place] [address] [phone] [facility] LAB (ABNORMAL) Hemoglobin (06/21/2013 1:10 PM CDT) athologist Signature Hemoglobin 10.5 (L) 13.3 - 17.7 [place] g/dL [facility] Specimen Anatomical Collection Method Collection Time Receive d Time (Source) Location / / Volume Laterality Blood specimen 06/21/2013 1:10 PM 013 1:33 (specimen) CDT PM CDT Danis Anders MD LAB - BLOOD ORDERABLES Performing Organization Address City/State/ZIP Code Phon e Number [facility] [address] [place] [address] [facility] LAB (ABNORMAL) Basic metabolic panel (06/21/2013 1:10 PM CDT) Patholo gist Method Time Signature Sodium 126 (L) 133 - 144 [place] mmol/L [facility] Potassium 5.5 (H) 3.4 - 5.3 [place] mmol/L [facility] Chloride 92 (L) 94 - 109 [place] mmol/L [facility] Carbon Dioxide 19 (L) 20 - 32 [place] mmol/L [facility] Anion Gap 14 6 - 17 [place] mmol/L [facility] Glucose 139 (H) 60 - 99 [place] mg/dL [facility] Urea Nitrogen 90 (H) 7 - 30 [place] mg/dL [facility] Creatinine 13.45 (H) 0.66 [facility] 1.[facility] mg/dL [facility] GFR Estimate 4 (L) >60 [place] mL/min/1.[address] LAB GFR Estimate If 5 (L) >60 [place] Black mL/min/1.[address] LAB Calcium 8.5 8.5 - 10.4 [place] mg/dL [facility] Specimen Anatomical Collection Method Collection Time Receive d Time (Source) Location / / Volume Laterality Blood specimen 06/21/2013 1:10 PM 013 1:33 (specimen) CDT PM CDT Danis Anders MD LAB - BLOOD ORDERABLES Performing Organization Address City/State/ZIP Code Phon e Number [facility] [phone] [place] [address] LAB (ABNORMAL) INR (06/21/2013 8:25 AM CDT) P athologist Signature INR 1.50 (H) 0.86 - 1.14 [facility] Specimen Anatomical Collection Method Collection Time Receive d Time (Source) Location / / Volume Laterality Blood specimen 06/21/2013 8:25 AM 013 8:42 (specimen) CDT AM CDT [facility] LAB - BLOOD ORDERABLES Performing Organization Address City/State/ZIP Code Phon e Number [facility] [address] [phone] [phone] [place] [address] LAB Glucose by meter (06/20/2013 10:37 AM CDT) P athologist Signature Glucose 91 60 - 99 POINT OF CARE mg/dL TEST, GLUCOSE Specimen Anatomical Collection Method Collection Time Receive d Time (Source) Location / / Volume Laterality 06/20/2013 10:37 06/20/2013 AM CDT 10:41 AM CDT Patricia Olvera MD LAB - BEAKER POCT Performing Organization Address [facility] Code Phon e Number FV POINT OF CARE TEST, GLUCOSE POINT OF CARE TEST, GLUCOSE Glucose by meter (06/20/2013 9:29 AM CDT) athologist Signature Glucose 86 60 - 99 POINT OF CARE mg/dL TEST, GLUCOSE Specimen Anatomical Collection Method Collection Time Receive d Time (Source) Location / / Volume Laterality 06/20/2013 9:29 AM 3 9:35 CDT AM CDT Patricia Olvera MD LAB - BEAKER POCT Performing Organization Address City/[facility] Code Phon e Number FV POINT OF CARE TEST, GLUCOSE POINT OF CARE TEST, GLUCOSE Glucose by meter (06/20/2013 8:20 AM CDT) athologist Signature Glucose 92 60 - 99 POINT OF CARE mg/dL TEST, GLUCOSE Specimen Anatomical Collection Method Collection Time Receive d Time (Source) Location / / Volume Laterality 06/20/2013 8:20 AM 3 8:25 CDT AM CDT Patricia Olvera MD LAB - BEAKER POCT Performing Organization Address City/[facility] Code Phon e Number FV POINT OF CARE TEST, GLUCOSE POINT OF CARE TEST, GLUCOSE ABO/Rh type and screen (06/20/2013 7:25 AM CDT) [facility] Method Time Signature ABO O [facility] RH(D) Pos [facility] Antibody Neg [place] Screen [facility] Test Valid [facility] Only [facility] LAB Specimen 06/23/2013 [place] Expires [facility] Specimen Anatomical Collection Method Collection Time Receive d Time (Source) Location / / Volume Laterality Blood specimen 06/20/2013 7:25 AM 013 7:37 (specimen) CDT AM CDT Lizandro Luther MD LAB - BLOOD BANK TEST ORDER Performing Organization Address City/State/ZIP Code Phon e Number [facility] [address] [place] [address] [facility] Glucose by meter (06/20/2013 [...] Signature Hemoglobin 10.5 (L) 13.3 - 17.7 [place] g/dL [facility] Specimen Anatomical Collection Method Collection Time Receive d Time (Source) Location / / Volume Laterality Blood specimen 06/20/2013 6:10 AM 013 6:13 (specimen) CDT AM CDT Alvaro Cyr MD LAB - BLOOD ORDERABLES Performing Organization Address City/[facility]/ZIP Code Phon e Number [facility] [address] [phone] [facility] LAB (ABNORMAL) INR (06/20/2013 6:10 AM CDT) P athologist Signature INR 1.90 (H) 0.86 - 1.14 [facility] Specimen Anatomical Collection Method Collection Time Receive d Time (Source) Location / / Volume Laterality Blood specimen 06/20/2013 6:10 AM 013 6:13 (specimen) CDT AM CDT Alvaro Cyr MD LAB - BLOOD ORDERABLES Performing Organization Address City/State/ZIP Code Phon e Number [facility] [address] [place] [phone] LAB Potassium (06/20/2013 6:10 AM CDT) athologist Signature Potassium 5.2 3.4 - 5.3 [place] mmol/L [facility] Specimen Anatomical Collection Method Collection Time Receive d Time (Source) Location / / Volume Laterality Blood specimen 06/20/2013 6:10 AM 013 6:13 (specimen) CDT AM CDT Alvaro Cyr MD LAB - BLOOD ORDERABLES Performing Organization Address City/State/ZIP Code Phon e Number [facility] [address] [place] [address] [phone] [facility] EKG 12-lead, tracing only (06/19/2013 5:19 PM CDT) [facility] Method Time Signature Interpretation ECG Click View RADIOLOGY Image link RESULTS to view waveform and result Specimen (Source) Anatomical Collection Method Collection Time Re ceived Time Location / / Volume Laterality 06/19/2013 5:19 PM CDT Alvrao Cyr MD ECG ORDERABLES Performing Organization Address City/State/ZIP Code Phon e Number RADIOLOGY RESULTS (ABNORMAL) Hemoglobin (06/19/2013 12:15 PM CDT) athologist Signature Hemoglobin 11.5 (L) 13.3 - 17.7 [place] g/dL [facility] Specimen Anatomical Collection Method Collection Time Receive d Time (Source) Location / / Volume Laterality Blood specimen 06/19/2013 12:15 3 (specimen) PM CDT 12:39 PM CDT Danis Anders MD LAB - BLOOD ORDERABLES Performing Organization Address City/State/ZIP Code Phon e Number [facility] [address] [place] [address] [phone] [facility] Potassium (06/19/2013 12:15 PM CDT) athologist Signature Potassium 5.0 3.4 - 5.3 [place] mmol/L [facility] Specimen Anatomical Collection Method Collection Time Receive d Time (Source) Location / / Volume Laterality Blood specimen 06/19/2013 12:15 3 (specimen) PM CDT 12:39 PM CDT Danis Anders MD LAB - BLOOD ORDERABLES Performing Organization Address City/State/ZIP Code Phon e Number [facility] [address] [phone] [facility] IR Dialysis Fistulogram Right [...] rade directions, access was obtained and [address] a[address]. A total of 4 mg of tPA was administered into the loop graft. 6 mm balloon angioplasty was performed throughout the graft as well a s 8 mm balloon angioplasty in the outflow vein. Possis device was used for mechanical thrombectomy and subsequently, the machine heddle cleaner device was used for mechanical thrombectomy. [...] rade directions, access was obtained and [address] aced. A total of 4 mg of tPA was administered into the loop graft. 6 mm balloon angioplasty was performed throughout the graft as well a s 8 mm balloon angioplasty in the outflow vein. Possis device was used for mechanical thrombectomy and subsequently, the machine heddle cleaner device was used for mechanical thrombectomy. [...] Signature INR 2.42 (H) 0.86 - 1.14 [facility] Specimen Anatomical Collection Method Collection Time Receive d Time (Source) Location / / Volume Laterality Blood specimen 06/19/2013 7:25 AM 013 7:34 (specimen) CDT AM CDT Patricia Olvera MD LAB - BLOOD ORDERABLES Performing Organization Address City/State/ZIP Code Phon e Number [facility] [address] [phone] [facility] documented in this encounter Visit Diagnoses Diagnosis ESRF (end stage renal failure) (H) - [facility] End stage renal disease A-V fistula (H) Arteriovenous fistula, acquired Clotted renal dialysis arteriovenous gra ft (H) Clotted renal dialysis AV graft (H) Other complications due to renal dialysi s device, implant, and graft Post-op pain Other acute postoperative pain documented in this encounter Administered Medications Inactive Administered Medications - up to 3 most recent administrations Medication Order MAR Action Action Date Dose Rate Site 0.9 % sodium chloride IV New Bag 06/20/2013 6:45 AM CDT 10 mL/hr solution at 10 mL/hr, Intravenous, CONTINUOUS, Pre-procedure, Starting on Tue06/20/13 at 0700, Until Tue06/20/13 at 1158 alteplase (CATHFLO ACTIVASE) 2 MG inject ion Starting on Tue06/19/13 at 0836, For 1 dose, Huy Gonzalez corey: cabinet override alteplase (CATHFLO ACTIVASE) injection 4 mg Given 06/19/2013 8:45 AM CDT 4 mg 4 mg, Intravenous, ONCE, On Tue06/19/13 at 0915, For 1 dose, Given per Dr. Olvera into fistula, IR Intra-procedure B qwrmmlf-E-scitc acid (NEPHROCAPS) capsule 1 Given 06/20/20 13 8:43 PM CDT 1 mg mg 1 mg (1 capsule), Oral, AT BEDTIME, First dose on Tue06/19/13 at 2200 Given 06/19/2013 10:44 PM CDT 1 mg bisacodyl (DULCOLAX) EC tablet 10 mg Given 06/20/2013 8:43 PM CDT 10 mg 10 mg, Oral, 2 TIMES DAILY, First dose on Tue06/19/13 at 2100, DO NOT CRUSH. Given 06/19/2013 10:44 PM CDT 10 mg calcium acetate (PHOSLO) capsule Given 06/21/2013 5:14 PM CDT 1, 334 mg 1,334-2,001 mg 1,334-2,001 mg, Oral, 3 TIMES DAILY WITH MEALS, First dose on Tue06/19/13 at 1800, Best if given with meals. Take with meals. Given 06/21/2013 11:53 AM CDT 1,334 mg Given 06/20/2013 6:06 PM CDT 1,334 mg fentaNYL (SUBLIMAZE) 0.05 MG/ML injectio n Starting on Tue06/19/13 at 0808, For 1 d Radha kinsey Sara: cabinet override fentaNYL (SUBLIMAZE) injection 25-50 mcg Given 06/19/2013 9:35 AM CDT 25 mcg 25-50 mcg, Intravenous, EVERY 5 MIN PRN, severe pain (7-10), If inadequate response may repeat 25 mcg IV slowly Q 5 min PRN severe pain, Administer over 2 Minutes, Starting on Tue06/19/13 at 0818, Doses can be exceeded under direct oversight of patient by physician., IR Intra-procedure Given 06/19/2013 9:00 AM CDT 25 mcg Given 06/19/2013 8:45 AM CDT 25 mcg heparin (porcine) injection 500 Units Given 06/21/2013 1:10 PM CDT 500 Units 500 Units, Hemodialysis Machine, ONCE IN DIALYSIS/CRRT, On Tue06/21/13 at 0700, For 1 dose, LOADING DOSE, Dialysis heparin 10,000 units/10 mL New Bag 06/21/2013 4:33 PM CDT 500 Units/hr 0.5 mL/hr drip (DIALYSIS USE) 500 Units/hr (rounded to 0.5 mL/hr), Hemodialysis Machine, CONTINUOUS, Starting on Padmaja 06/21/13 at 0700, DURING DIALYSIS TREATMENT, Dialysis hydrALAZINE (APRESOLINE) injection 10 mg Given 06/19/2013 10:05 AM CDT 10 mg 10 mg, Intravenous, ONCE, On Tue06/19/13 at 1015, For 1 dose, May repeat x 1, IR Intra-procedure iopamidol (ISOVUE-300) IV solution 61% 100 Given 06/19 10:33 AM CDT 100 mLs mL 100 mL, Intravenous, ONCE, On Tue06/19/13 at 0815, For 1 dose, IR Intra-procedure lidocaine (PF) (XYLOCAINE) 1 % injection 1-30 Given 10:14 AM CDT 7 mLs mL 1-30 mL, Subcutaneous, ONCE PRN, for local anesthetic.?When verbally ordered by prescriber during the procedure., Starting on Tue06/19/13 at 0818, For 1 dose, Dose to be divided into smaller volumes appropriate for the procedure., IR Intra-procedure lisinopril (PRINIVIL,ZESTRIL) tablet 40 mg Given 06/21/2013 5:14 PM CDT 40 mg 40 mg, Oral, DAILY, First dose on Tue06/20/13 at 0900 metoprolol (LOPRESSOR) tablet 100 mg Given 06/20/2013 8:43 PM CDT 100 mg 100 mg, Oral, 2 TIMES DAILY, First dose on Tue06/19/13 at 2100 Given 06/19/2013 10:44 PM CDT 100 mg midazolam (VERSED) 1 MG/ML injection Starting on Tue06/19/13 at 0808, For 1 d Radha kinsey Sara: cabinet override midazolam (VERSED) injection 0.5-1 mg Given 06/19/2013 9:35 AM CDT 0.5 mg 0.5-1 mg, Intravenous, Administer over 1 Minutes, EVERY 4 MIN PRN, sedation, If inadequate response may repeat 0.5 mg IV slowly Q 4 minutes PRN sedation until desired response., Starting on Tue06/19/13 at 0818, Doses can be exceeded under direct oversight of patient by physician., IR Intra-procedure Given 06/19/2013 9:00 AM CDT 0.5 mg Given 06/19/2013 8:45 AM CDT 0.5 mg ondansetron (ZOFRAN) injection 4 mg Given 06/20/2013 11:23 AM CDT 4 mg 4 mg, Intravenous, EVERY 30 MIN PRN, nausea, Administer over 2-5 Minutes, Starting on Tue06/20/13 at 1119, For 2 doses, MAX total dose = 8 mg, including OR dosing. If not resolved in 15 minutes, then go to step 2 (Prochlorperazine if ordered)., PACU phenol-menthol (CEPASTAT) 14.5 MG lozeng e Starting on Tue06/20/13 at 1234, For 1 dose, Sabine Rondon: cabinet override phenol-menthol (CEPASTAT) lozenge 1-2 Given 06/21/2013 12:13 AM CDT 2 lozenges lozenge 1-2 lozenge, Buccal, EVERY 1 HOUR PRN, sore throat, Starting on Tue06/20/13 at 1213, For sore throat without fever., Post-procedure Given 06/20/2013 8:45 PM CDT 2 lozenges Given 06/20/2013 4:10 PM CDT 2 lozenges simvastatin (ZOCOR) tablet 40 mg Given 06/20/2013 8:43 PM CDT 40 mg 40 mg, Oral, AT BEDTIME, First dose on Tue06/20/13 at 2200 sodium chloride (PF) 0.9% PF flush 3 mL Given 06/21/2013 5:16 PM CDT 3 mLs 3 mL, Intracatheter, EVERY 8 HOURS, First dose on Tue06/20/13 at 0515 Given 06/20/2013 8:31 PM CDT 3 mLs Given 06/20/2013 2:00 PM CDT 3 mLs sodium chloride (PF) 0.9% PF flush 3 mL Given 06/21/2013 6:47 AM CDT 3 mLs 3 mL, Intravenous, EVERY 8 HOURS, First dose on Tue06/20/13 at 1215, to lock peripheral IV dormant line. Also Ordered Q1H PRN, Post-procedure sodium chloride 0.9 % BOLUS 250-1,000 mL New Bag 06/21/2013 1:10 PM CDT 250 mLs Intravenous, 250-1,000 mL, ONCE IN DIALYSIS/CRRT, On Padmaja 06/21/13 at 0700, For 1 dose, For patient prime during dialysis, Dialysis warfarin (COUMADIN) tablet 2.5 mg Given 06/20/2013 6:06 PM CDT 2.5 mg 2.5 mg, Oral, ONCE AT 6PM, On Tue06/20/13 at 1800, For 1 dose documented in this encounter Active and Recently Administered Medications Times are shown in CDT. Scheduled Medication Order 06/19/2013 06/20/2013 06/21/2013 alteplase (CATHFLO ACTIVASE) injection 4 mg (COMPLETED ) 0845 (Given - Provider: Layla Garcia, LINDA) 4 mg, Intravenous, ONCE, Tue06/19/13 at 0915, For 1 dose, Given per Dr. Olvera into fistula, IR Intra-procedure B cjamxgx-V-tgzqx acid (NEPHROCAPS) capsule 1 mg (CANC ELED) 2244 (Given - Provider: Nola Lizarraga, RN) 0629 (Auto Hold - Provider: Orders Gener ic Provider - Reason: Transfer to a procedural area)1159 (Unhold - Provider: Orders Generic Provider)204 (Given - Provider: Tricia Shipley, RN)2200 (Canceled Entry - Provider: Tricia Shipley, RN) 1 capsule = 1 mg, Oral, AT BEDTIME, First dose on Tue06/19/13 at 2200 bisacodyl (DULCOLAX) EC tablet 10 mg (CANCELED) 2244 ( Given - Provider: Nola Lizarraga, LINDA) 0629 (Auto Hold - Provider: Orders Gener ic Provider - Reason: Transfer to a procedural area)0900 (Automatically Held - Provider: Orders Generic Provider)1159 (Unhold - Provider: Orders Generic Provider)204 (Given - Provider: Tricia Shipley, LINDA) 1106 (Not Given - Provider: Yolanda magana [...] Generic Provider)115 (Unhold - Provider: Orders Generic Provider)1244 (Given - Provider: Sabine Rondon RN) 1106 (Not Given - Provider: Yolanda Ventura RN - Reason: Contraindicated)1153 (Given - Provider: Yolanda Ventura RN)1714 (Given - Provider: Tricia Shipley RN) 1,334-2,001 mg, Oral, 3 TIMES DAILY WITH MEALS, First dose on Tue06/19/13 at 1800, Best if given with meals. Take with meals. 1806 (Given - Provider: Tricia Shipley, RN) heparin (porcine) injection 500 Units (COMPLETED) 1310 (Given - Provider: Stephanie Bo, LINDA) 500 Units, Hemodialysis Machine, ONCE IN DIALYSIS, [facility] 06/21/13 at 0700, For 1 dose, LOADING [...] Orders Generic Provider)2043 (Given - Provider: Tricia Shipley, LINDA) 1107 (Hold - Provider: Elva Riojas - Reason: Contraindicated - Comment: will give after HD) 100 mg, Oral, 2 TIMES DAILY, First dose on Tue06/19/13 at 2100 simvastatin (ZOCOR) tablet 40 mg (CANCELED) 0629 (Auto Hold - Provider: Orders Generic Provider - Reason: Transfer to a procedural area)1159 (Unhold - Provider: Orders Generic Provider)2043 (Given - Provider: Tricia Shipley RN)2200 (Canceled [...] Provider) 0647 (Not Given - Provider: Guru Pollard RN - Reason: Other - Comment: duplicate)1709 (Not Given - Provider: Tricia Shipley RN - Reason: Patient not available)1716 (Given - Provider: Tricia Shipley RN) 3 [...] Tricia Shipley RN) 0647 (Given - Provider: Guru Pollard, Elva N)1215 (Canceled Entry - Provider: Orders Generic Provider) 3 mL, Intravenous, EVERY 8 HOURS, First dose on Tue06/20/13 at 1215, to lock peripheral IV dormant line. Also Ordered Q1H PRN, Post-procedure sodium chloride 0.9 % BOLUS 250-1,000 mL (COMPLETED) 1310 (New Bag - Provider: Stephanie Bo RN - Comment: prime) Intravenous, 250-1,000 mL, ONCE IN [facility] 06/21/13 at 0700, For 1 dose, For patient prime during dialysis, Dialysis warfarin (COUMADIN) tablet 2.5 mg (COMPLETED) 180 (Given - Provider: Tricia Shipley RN) 2.5 mg, Oral, ONCE AT 6PM, Tue06/20/13 at 1800, For 1 dose Continuous Medication Order 06/19/2013 06/20/2013 06/21/2013 0.9 % sodium chloride IV solution (CANCELED) 0645 (New Bag - Provider: Wu Maxwell RN)0746 (Anesthesia Volume Adjustment - Provider: Jessie Dorsey APRN CRNA) at 10 mL/hr, Intravenous, CONTINUOUS, Pre-procedure heparin 10,000 units/10 mL drip (DIALYSIS USE) (CANCELED) 1633 (New Bag - Provider: Stephanie Bo, LINDA) 500 Units/hr = 0.5 mL/hr, Hemodialysis M alicia, at 0.5 mL/hr, CONTINUOUS, Starting Padmaja 06/21/13 [...] Layla Garcia RN)0845 (Given - Provider: Layla Garcia RN)0900 (Given - Provider: Layla Garcia RN)0935 (Given - Provider: Layla Garcia RN) 25-50 mcg, Intravenous, for 2 Minutes, E VERY 5 MIN PRN, Starting 06/19/13 at 0818, severe pain, If inadequate response may repeat 25 mcg IV slowly Q 5 min PRN severe pain, Doses can be exceeded under direct oversight of patient by physician., IR Intra-procedure lidocaine (PF) (XYLOCAINE) 1 % injection 1-30 mL (COMP LETED) 1014 (Given - Provider: Layla Garcia RN) 1-30 mL, Subcutaneous, ONCE PRN, for loc al anesthetic.?When verbally ordered by prescriber during the procedure., Starting Tue06/19/13 at 0818, For 1 dose, Dose to be divided into smaller volumes appropriate for the procedure., IR Intra-procedure midazolam (VERSED) injection 0.5-1 mg (CANCELED) 0835 (Given - Provider: Layla Garcia, LINDA)0845 (Given - Provider: Layla Garcia, RN)0900 (Given - Provider: Layla Garcia, LINDA)0935 (Given - Provider: Layla Garcia RN) 0.5-1 mg, Intravenous, for 1 Minutes, EV KAROL 4 MIN PRN, Starting Tue06/19/13 at 0818, sedation, If inadequate response may repeat 0.5 mg IV slowly Q 4 minutes PRN sedation until desired response., Doses can be exceeded under direct oversight o f patient by physician., IR Intra-procedure ondansetron (ZOFRAN) injection 4 mg (CANCELED) 1123 (Given - Provider: Claudia Pace RN) 4 mg, Intravenous, EVERY 30 MIN PRN, [...] Tricia Shipley, LINDA)2045 (Given - Provider: Tricia Shipley RN) 0013 (Given - Provider: Elva Hartman) 1-2 lozenge, Buccal, EVERY 1 HOUR PRN, s ore throat, Starting Tue06/20/13 at 1213, For sore throat without fever., Post-procedure documented in this encounter Care Teams Inside Sales Associate Relationship Specialty Start Date End Date Preet Huff PCP - General 06/24/11 documented as of this encounter
--- OUTSIDE RECORDS SUMMARY | 2022-09-01 20:22 | XMS_ITS | Encounter Summary ---
:1965 Author Organization [place] Address [address] [facility] [place] [address] Care Team Providers Name Role Phone Preet Huff Primary Care Provider Reason for Visit Auth/Cert - Closed Specialty Diagnoses / Procedures Referred By Contact Refer red To Contact Surgery Diagnoses LEFT FEMORAL PTFE LOOP GRAFT PSEUDO ANEURYSM Sh Periop Services Procedures <REVISION FISTULA ARTERIOVENOUS LOWER EXTREMITY> [address] [place] [phone] Phone: Referral ID Status Reason Start Date Expiration Date Visits Requ ested Visits Authorized [id number] Closed 1 1 Encounter Details Date Type Department Care Team Description 05/08/2014 Hospital Encounter [facility] Rober Buenrostro otted renal [place] Phase II MD Preet dialysis [address] arteriovenous graft, [place] [address] subsequent encounter [id number] [place] [id number] (Primary Dx) [phone] Social History Tobacco Use Types Packs/Day Years Used Date Smoking Tobacco: Never Smokeless Tobacco: Never Alcohol Use Standard Drinks/Week Comments No 0 (1 standard drink = 0.6 oz pure alcoho l) Sex Assigned at Date Recorded Not on file documented as of this encounter Last Filed Vital Signs Vital Sign Reading Time Taken Comments Blood Pressure 166/80 05/08/2014 11:00 AM CDT Pulse - - Temperature 36.2 ??C (97.2 ??F) 05/08/2014 6:20 AM CDT Respiratory Rate 16 05/08/2014 11:00 AM CDT Oxygen Saturation 99% 05/08/2014 11:00 AM CDT Inhaled Oxygen Concentration - - [...] 0 D3 PO) mouth every evening b uryyafj-T-usbrz acid Take 1 capsule by 0 03/04/2016 [...] this encounter Miscellaneous Notes Op Note - Rober Buenrostro MD - 05/08/2014 10:32 AM CDT [employer] Certified Network Associate: Rand Segovia MD ([facility] Resident) PREOPERATIVE DIAGNOSIS: 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 PROCEDURES: 1. Excision left arterial limb loop PTFE thigh pseudoaneurysm. a. Bovine patch angioplasty. ANESTHESIA: Local with intravenous supplementation. PREOPERATIVE MEDICATIONS: Ancef 2 grams IV. INDICATIONS: Julio Cesar Victor is a 49-year-old patient who is on chronic hemodialysis at the [facility]. He has no upper extremity [...] routine Tuesday, , Tuesday dialysis at the [place] unit. We will have a telephone call followup in 2 weeks with his dialysis unit due to the difficulty for him getting to the hospital for followups. ROBER BUENROSTRO MD MT: [id number] Name: JULIO CESAR VICTOR MRN: [id number] Account: [id number] : 1965 Procedure Date: 05/08/2014 Document: [id number] cc: Copy for Provider [facility] RAND Buenrostro MD Brief Op Note - Rand Segovia MD - 05/08/2014 10:06 AM CDT [facility] Brief Operative Note Pre-operative diagnosis: LEFT [...] Signature INR 2.16 (H) 0.86 - 1.14 [facility] Specimen Anatomical Collection Method Collection Time Receive d Time (Source) Location / / Volume Laterality Blood specimen 05/08/2014 6:25 AM 014 6:38 (specimen) CDT AM CDT Graham Treviño MD LAB - BLOOD ORDERABLES Performing Organization Address City/[facility]/ZIP Code [facility] e Number [facility] [address] [place] [address] [facility] Potassium (05/08/2014 6:25 AM CDT) athologist Signature Potassium 4.2 3.4 - 5.3 [place] mmol/L [facility] Specimen Anatomical Collection Method Collection Time Receive d Time (Source) Location / / Volume Laterality Blood specimen 05/08/2014 6:25 AM 014 6:38 (specimen) CDT AM CDT Graham Treviño MD LAB - BLOOD ORDERABLES Performing Organization Address City/[facility]/ZIP Code [facility] e Number [facility] [address] [place] [address] [facility] documented in this encounter Visit Diagnoses Diagnosis Clotted renal dialysis arteriovenous gra ft, subsequent encounter - Primary documented in this encounter Active and Recently Administered Medications Times are shown in CDT. Scheduled Medication Order 05/06/2014 05/07/2014 05/08/2014 ceFAZolin (ANCEF) IVPB 2 g (pre-mix) (COMPLETED) 0740 (Given - Provider: Vinicio Eller APRN CRNA) Routine, 2 g, Intravenous, PRE-OP/PRE-NE OCEDURE, Starting on Tue05/08/14 at 0611, For [...] 0820 (Given - Provider: Vinicio Eller APRN LAYOUT WORKER) Starting on Tue05/08/14 at 0708, For 1 d Ilya kinsey, LINDA, Dannielle: cabinet override documented in this encounter Care Teams Vertical Contour Band Saw Operator Relationship Specialty Start Date End Date Preet Huff PCP - General 06/24/11 documented as of this encounter
--- OUTSIDE RECORDS SUMMARY | 2022-09-01 20:22 | XMS_ITS | Encounter Summary ---
:1965 Author Organization [place] Address [address] [place] [address]. [place] [address] Care Team Providers Name Role Phone Preet Huff Primary Care Provider Encounter Details Date Type Department Care Team Description 06/28/2013 Results Only [facility] Wojciech Holman MD [facility] [address] [place] [phone] [address] [place], [place] [id number] (Wo rk) Social History Tobacco Use Types Packs/Day Years Used Date Smoking Tobacco: Never Smokeless Tobacco: Never Alcohol Use Standard Drinks/Week Comments No 0 (1 standard drink = 0.6 oz pure alcoho l) Sex Assigned at Date Recorded Not on file documented as of this encounter Plan of Treatment Scheduled Orders Name Type Priority Associated Diagnoses Order S chedule IR US Guided Venous Access Imaging O rdered: 06/28/2013 Right documented as of this encounter Visit Diagnoses Not on filedocumented in this encounter Care Teams Fabrication Technician Relationship Specialty Start Date End Date Preet Huff PCP - General 06/24/11 documented as of this encounter
--- OUTSIDE RECORDS SUMMARY | 2022-09-01 20:22 | XMS_ITS | Encounter Summary ---
:1965 Author Organization [place] Address [address] [facility] [place] [address] Care Team Providers Name Role Phone Preet Huff Primary Care Provider Encounter Details Date Type Department Care Team Description 06/28/2013 Hospital Encounter [facility] Michele Fuentes ESRF (end stage [facility] MD Jared renal failure) (H) [address] [facility] Madyson S [place], [place] RADIOLOGIC CONS [phone] [place] [phone] [address] [place] [address] Social History Tobacco Use Types Packs/Day Years Used Date Smoking Tobacco: Never Smokeless Tobacco: Never Alcohol Use Standard Drinks/Week Comments No 0 (1 standard drink = 0.6 oz pure alcoho l) Sex Assigned at Date Recorded Not on file documented as of this encounter Last Filed Vital Signs Vital Sign Reading Time Taken Comments Blood Pressure 118/59 06/28/2013 8:34 PM CDT Pulse 83 06/28/2013 8:34 PM CDT Temperature 36.9 ??C (98.5 ??F) 06/28/2013 8:34 PM CDT Respiratory Rate 16 06/28/2013 5:01 PM CDT Oxygen Saturation 100% 06/28/2013 8:34 PM CDT Inhaled Oxygen Concentration - - Weight 75.8 kg (167 lb) 06/28/2013 12:44 PM CDT Height 162.6 cm (5' 4) 06/28/2013 12:44 PM CDT Body Mass Index 28.67 06/28/2013 12:44 PM CDT documented in this encounter Medications at Time of Discharge Medication Sig Dispensed Refills Start Date End Date Cholecalciferol (VITAMIN Take 2,000 Units by 0 D3 PO) mouth every evening b [id number] acid Take 1 capsule by 0 03/04/2016 [...] documented as of this encounter Progress Notes Josue Byrnes RN - 06/28/2013 8:44 PM CDT POTASSIUM 5.0 06/28/2013 HGB 10.5 06/21/2013 167 lbs 0 oz Patient dialyzed for 3 hours via right leg graft against a K-2 bath with a net fluid removal of 3 Liters. Total heparin received during treatment:none units. Meds given during the treatment:epo, hectorol Complications:none Procedure and ESRD education reviewed with the patient. post run report given to norman yost r.n.. See flowsheet in IntroBridge for run details. Roberta Schmitz RN - 06/28/2013 5:33 PM CDT POTASSIUM 5.5 06/21/2013 HGB 10.5 06/21/2013 Rec'd pt per cart acc'd by transport team from Interventional radiology. Sheaths remain in place in graft from IR, and labeled. Art and Venous sheaths accessed with no difficulty. Time out taken. Pt ran 3 hours on a K 2 bath. Blood flow rate of 400 was obtained. PRE-WEIGHT:75.5kgs, EDW 78kgs, Dr. Mason visited pt during run. Transducers checked Q 15 minutes, remain clear throughout Rx. Report given to Josue Byrnes RN. Ariadne Schmitz RN [facility] Wojciech Holman MD - 06/28/2013 5:19 PM CDT Renal Medicine Inpatient Dialysis Note Assessment/Plan: 1. ESRD 2. Complicated access -post de-clot right femoral -new left femoral loop graft 1 week old 3. Anemia 4. Secondary hyperparathyroidism Seen on run Started on 2K bath/prerun value sent UF 3 Home post run Interval History: Clotted femoral graft. Post declot. Sheaths in. BFR 400. No complaints ROS GENERAL: NAD, No fever,chills E/M: NEGATIVE for ear, mouth and throat problems R: NEGATIVE for significant cough or SOB CV: NEGATIVE for chest pain, palpitations EXT: no change edema ROS otherwise negative Dialysis Parameters: Vitals were reviewed Patient Vitals for the past 8 hrs: BP Temp Temp src Pulse Heart Rate Resp SpO2 Height Weight 06/28/13 1710 178/85 mmHg - - 78 - - - - - 06/28/13 1701 169/86 mmHg 98.2 ??F (36.8 ??C) Oral 78 - 16 97 % - - 06/28/13 1630 196/94 mmHg - - - 78 15 98 % - - 06/28/13 1615 195/95 mmHg - - - 72 17 98 % - - 06/28/13 1600 204/97 mmHg - - - 73 14 100 % - - 06/28/13 1545 191/93 mmHg - - - 75 16 98 % - - 06/28/13 1530 193/92 mmHg - - - 71 14 99 % - - 06/28/13 1244 143/69 mmHg 97.6 ??F (36.4 ??C) Oral - 72 16 100 % 1.626 m (5' 4) 75.751 kg (167 lb) Filed Vitals: 06/28/13 1244 Weight: 75.751 kg (167 lb) Current Weight: 75.8 Dry Weight: 72 Dialysis Temp: 36.5 ??C Access Device: femoral graft Access Site: right Dialyzer: Optiflux 160 Dialysis Bath: 2 Sodium Profile: n UF Goal: 3 Blood Flow Rate (mL/min): 400 Total Treatment Time (hrs): 3 Heparin: Low dose as required EPO dose: y Zemplar: y IV Fe: n Medications and Allergies: Reviewed Physical Exam: Seen and examined during course of dialysis run BP 178/85 Pulse 78 Temp 98.2 ??F (36.8 ??C) (Oral) Resp 16 Ht 1.626 m (5' 4) Wt 75.751 kg(167 lb) BMI 28.67 kg/m2 SpO2 97% GENERAL: awake, alert, follows RESP: clear CV: RRR, normal S1 S2 ABDOMEN: S/NT, BS present MS: no edema EXT: access canulated without issue/sheaths in place Data: K pending Wojciech Holman [facility] - Nephrology [phone] Roberta Schmitz RN - 06/28/2013 5:07 PM CDT DIALYSIS PRE-ASSESSMENT: All machine safety checks completed and passed. Total chlorine checks less than 0.1ppm All connections secured, saline line double clamped. Venous and arterial parameters set Good circulation to fistula leg LOC:sedated Lungs clear Skin warm and dry Report rec'd from LINDA Colvin RN [facility] Tyrel Gonzalez RN - 06/28/2013 4:16 PM CDT Interventional Radiology Intra-procedural Nursing Note Patient Name: Julio Cesar Sandhu Today's Date: June 28, 2013 Start Time: 1549 End of procedure time: 1630 Procedure: Right Dialysis Fistulagram Report given to: Inpatient Dialysis Time pt departs: 1640 1615 - goat driver change; report received from Jenny Pérez RN. 1630 - Procedure completed; tolerated well. Venous and Arterial Dialysis Fistula Access Sheaths leftintact for immediate Dialysis; flushed with sterile saline and locked with Heparin 250 units per sheath. Sheaths dressed with Tegaderm VSS; denies pain at this time. Report called to Inpatient Dialysis. Will transport. Tyrel Gonzalez RN Hans Pérez RN - 06/28/2013 3:35 PM CDT Interventional Radiology Intra-procedural Nursing Note Patient Name: Julio Cesar Sandhu Today's Date: June 28, 2013 Start Time: 1548 End of procedure time: Procedure: Fistulagram right thigh/ POSSIS Report given to: Time pt departs: Air Sealing Technician: Other Notes: 1515 received Pt from Care Suites via cart to IR#[id number] MD aware of high BP no orders at this time 1615 Report off to Robin Gonzalez to resume care of Pt during procedure Hans Pérez Kalie Miner RN - 06/28/2013 1:31 PM CDT Talked with pt, mother, and transport. Pt will go to IR and then to dialysis here at hospital and then be discharged. Mother will wait in lobby and will call transport later for their ride home. documented in this encounter Consult Notes Rober Saravia MD - 06/29/2013 5:24 PM CDT HISTORY OF PRESENT ILLNESS: Julio Cesar Sandhu is a 48-year-old male who was on chronic hemodialysis at the [facility]. He has no upper extremity access options left and he has been dialyzing via right groin loop PTFE graft. This graft has clotted multiple times. On his last admission, the graft was reopened appeared to be a good conduit but with his frequent episodes of clotting despite being anticoagulated with Coumadin, we felt that placement of a left groin loop graft should be done since we were quite certain the right groin would eventually fail. This procedure was performed on06/20/13. The patient was able to be dialyzed via the open right groin loop graft with no difficulty u ntil his discharge on 06-21-13. The dialysis unit has been using the right groin graft while the left matures and they noted that itwas again re-occluded. On 06/28/13 the patient was sent to [facility]. PHYSICAL EXAMINATION: The patient was examined in the Care Suites. The right graft was then declotted. He had a good palpable pulse and thrill within the new left graft. Surgical site was healing nicely. There was no evidence of edema and cellulitis. Good perfusion was noted into his foot. CHEST: Clear. CARDIOVASCULAR: Regular rate. Dr. Michele Fuentes of Interventional Radiology was able to open up the right graft with TPA, mechanical thrombectomy and angioplasty of the inflow and outflow to reestablish good flow. 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 This likely will occur again. We are hoping that we can get another 1-2 weeks of this right groin graft to allow the new left graft to mature.When the right groin graft does re- occlude the dialysis unit will be able to access the left groin graft at that time and I do not feel that another attempt at opening of the right groin graft, as longas we can keep it open for additional 1-2 weeks is indicated. This information will be relayed by phone to the [facility] unit. ROBER SARAVIA MD MT: [id number] Name: JULIO CESAR SANDHU MRN: [id number] Account: [id number] : 1965 Consult Date: 06/28/2013 Document: [id number] cc: Wojciech Saravia MD documented in this encounter Plan of Treatment Not on filedocumented as of this encounter Procedures Procedure Name Priority Date/Time Associated Comments Diagnosis POTASSIUM Routine 06/28/2013 5:20 PM Results f or this CDT procedure are i n the results section. IR DIALYSIS Routine 06/28/2013 4:44 PM ESRF (end stage Result s for this FISTULOGRAM RIGHT CDT renal failure) (H) proc edure are in the results section. HEMODIALYSIS SINGLE Routine 06/28/2013 4:06 PM TREATMENT SETUP CDT (SH/RH ONLY) documented in this encounter Results Potassium (06/28/2013 5:20 PM CDT) athologist Signature Potassium 5.0 3.4 - 5.3 [place] mmol/L [facility] Specimen Anatomical Collection Method Collection Time Receive d Time (Source) Location / / Volume Laterality Blood specimen 06/28/2013 5:20 PM 013 5:26 (specimen) CDT PM CDT Alejandro Emerson MD LAB - BLOOD ORDERABLES Performing Organization Address City/State/ZIP Code Phon e Number M [facility] [address] [place] [address] [facility] IR Dialysis Fistulogram Right (06/28/2013 4:44 PM CDT) Anatomical Region Laterality Modality Upper Extremity Radio Fluoroscopy Specimen (Source) Anatomical Collection Method Collection Time Re ceived Time Location / / Volume Laterality 06/28/2013 4:44 PM CDT Impressions 06/28/2013 5:25 PM CDT Impression: Dialysis graft declot performed as above. MICHELE FUENTES MD Narrative 06/28/2013 5:25 PM CDT Procedure: 1. Fistulogram 2. Mechanical thrombectomy of fistula us ing 2 sheath entry sites. 3. Angioplasty of the arterial anastomos is and venous anastomosis/venous outflow. History: Patient has a right thigh loop dialysis graft. This graft has thrombosed multiple times. The patie nt has a new left thigh fistula however, this has not matured fo r use at this time. Description of procedure: The initial po rtion of this procedure was performed in the care suite. The skin ov erlying the right thigh dialysis graft was prepped and draped in the usual sterile manner. Approximately 2 mg TPA was injected into the graft using a 25-gauge needle. After approximately 60 minutes, the ricardo ent was transferred to the interventional radiology suite. The skin overlying the graft was prepped and draped in the usual sterile manner. 1% lidocaine was injected for local anesthesia. Access in to the graft was obtained at its apex directed towards the arterial a nastomosis. A second point of access was obtained in the arterial end of the graft directed towards the venous outflow. A CHARLI one catheter wa s passed into the inflow artery and a fistulogram was performed. Findings: The graft was occluded. Intervention: Mechanical thrombectomy us ing an AngioJet device was used to clear thrombus. In addition, mec hanical thrombectomy using a freight car cleaner delta system device was used to remove thromb us. Followup fistulogram revealed stenoses i n stents at the arterial anastomosis and in the venous outflow. T he stent at the arterial anastomosis was dilated with a 6 mm ball oon and the stent in the venous outflow was dilated with an 8 mm balloon. Followup fistulogram showed improvement in luminal diameter a nd improved flow. This was felt to be a satisfactory endpoint for t he procedure. The sheath was left in place and the pat ient was transferred for dialysis. The patient tolerated the procedure well . There were no immediate postprocedure complications. The patient 's vital signs were monitored by radiology nursing staff under my supe rvision and remained stable throughout the study. Medications: 1 mg Versed, 50 mcg fentany l Sedation time: 40 minutes Fluoroscopy time: 7.9 minutes Contrast: 45 cc Isovue Procedure Note Michele Fuentes MD - 06/28/2013F ormatting of this note might be different from the original. Procedure: 1. Fistulogram 2. Mechanical thrombectomy of fistula us ing 2 sheath entry sites. 3. Angioplasty of the arterial anastomos is and venous anastomosis/venous outflow. History: Patient has a right thigh loop dialysis graft. This graft has thrombosed multiple times. The patie nt has a new left thigh fistula however, this has not matured fo r use at this time. Description of procedure: The initial po rtion of this procedure was performed in the care suite. The skin ov erlying the right thigh dialysis graft was prepped and draped in the usual sterile manner. Approximately 2 mg TPA was injected into the graft using a 25-gauge needle. After approximately 60 minutes, the ricardo ent was transferred to the interventional radiology suite. The skin overlying the graft was prepped and draped in the usual sterile manner. 1% lidocaine was injected for local anesthesia. Access in to the graft was obtained at its apex directed towards the arterial a nastomosis. A second point of access was obtained in the arterial end of the graft directed towards the venous outflow. A CHARLI one catheter wa s passed into the inflow artery and a fistulogram was performed. Findings: The graft was occluded. Intervention: Mechanical thrombectomy us ing an AngioJet device was used to clear thrombus. In addition, mec hanical thrombectomy using a freight car cleaner delta system device was used to remove thromb us. Followup fistulogram revealed stenoses i n stents at the arterial anastomosis and in the venous outflow. T he stent at the arterial anastomosis was dilated with a 6 mm ball oon and the stent in the venous outflow was dilated with an 8 mm balloon. Followup fistulogram showed improvement in luminal diameter a nd improved flow. This was felt to be a satisfactory endpoint for t he procedure. The sheath was left in place and the pat ient was transferred for dialysis. The patient tolerated the procedure well . There were no immediate postprocedure complications. The patient 's vital signs were monitored by radiology nursing staff under my supe rvision and remained stable throughout the study. Medications: 1 mg Versed, 50 mcg fentany l Sedation time: 40 minutes Fluoroscopy time: 7.9 minutes Contrast: 45 cc Isovue IMPRESSION Impression: Dialysis graft declot perfor med as above. MICHELE FUENTES MD G Jagdeep Holman MD IMG IR ORDERABLES documented in this encounter Visit Diagnoses Diagnosis ESRF (end stage renal failure) (H) End stage renal disease documented in this encounter Administered Medications Inactive Administered Medications - up to 3 most recent administrations Medication Order MAR Action Action Date Dose Rate Site alteplase (CATHFLO ACTIVASE) Given 06/28/2013 1:46 PM CDT 2 mg injection 2 mg 2 mg, Other, ONCE, On Padmaja 06/28/13 at 1400, For 1 dose, Injected into right thigh fistula per Dr. Fuentes doxercalciferol (HECTOROL) injection 1 m cg Given 06/28/2013 6:12 PM CDT 1 mcg 1 mcg, Intravenous, ONCE IN DIALYSIS/CRRT, On Padmaja 06/28/13 at 1615, For 1 dose, Given during each dialysis (per request), Dialysis epoetin mauricio (EPOGEN,PROCRIT) 14,000 Given 06/28/2013 6:12 PM CD T 14,000 Units Units injection 14,000 Units, Intravenous, ONCE, On Padmaja 06/28/13 at 1615, For 1 dose, Given during each dialysis (per request) 86119 units = 63782 unit vial + 4000 unit vial, Dialysis, Hemoglobin reviewed? has reviewed/ordered hemoglobin within the required timeline fentaNYL (SUBLIMAZE) 0.05 MG/ML injectio n Starting on Padmaja 06/28/13 at 1419, For 1 dose, James Pérez: cabinet override fentaNYL (SUBLIMAZE) injection 25-50 mcg Given 06/28/2013 4:06 PM CDT 25 mcg 25-50 mcg, Intravenous, EVERY 5 MIN PRN, severe pain (7-10), If inadequate response may repeat 25 mcg IV slowly Q 5 min PRN severe pain, Administer over 2 Minutes, Starting on Padmaja 06/28/13 at 1536, Doses can be exceeded under direct oversight of patient by physician., IR Intra-procedure Given 06/28/2013 3:37 PM CDT 25 mcg heparin 100 UNIT/ML injection 500 Given by Other 06/28/2013 4:3 2 PM CDT 500 Units Units 500 Units, Intracatheter, ONCE, On Padmaja 06/28/13 at 1645, For 1 dose, 250 units per Dialysis Fistulagram Sheaths X2 iopamidol (ISOVUE-300) IV solution 61% 1 50 mL Given 06/28/2013 4:34 PM CDT 45 mLs 150 mL, Arterial, ONCE, On Padmaja 06/28/13 at 1545, For 1 dose, IR Intra-procedure lidocaine (PF) (XYLOCAINE) 1 % Given by Other 06/28/2013 4:23 PM CDT 3 mLs injection 1-30 mL 1-30 mL, Subcutaneous, ONCE PRN, for local anesthetic.?When verbally ordered by prescriber during the procedure., Starting on Padmaja 06/28/13 at 1536, For 1 dose, Dose to be divided into smaller volumes appropriate for the procedure., IR Intra-procedure midazolam (VERSED) 1 MG/ML injection Starting on Padmaja 06/28/13 at 1419, For 1 dose, James Pérez: cabinet override midazolam (VERSED) injection 0.5-1 mg Given 06/28/2013 4:06 PM CDT 0.5 mg 0.5-1 mg, Intravenous, Administer over 1 Minutes, EVERY 4 MIN PRN, sedation, If inadequate response may repeat 0.5 mg IV slowly Q 4 minutes PRN sedation until desired response., Starting on Padmaja 06/28/13 at 1536, Doses can be exceeded under direct oversight of patient by physician., IR Intra-procedure Given 06/28/2013 3:37 PM CDT 0.5 mg documented in this encounter Active and Recently Administered Medications Times are shown in CDT. Scheduled Medication Order 06/26/2013 06/27/2013 06/28/2013 alteplase (CATHFLO ACTIVASE) injection 2 mg (COMPLETED) 1346 (Given - Provider: Carolyn Garcia RN - Comment: into fistula. Dr. Fuentes administered the medication)1538 (Due) 2 mg, Other, ONCE, Padmaja 06/28/13 at 1400, For 1 dose, Injected into right thigh fistula per Dr. Fuentes doxercalciferol (HECTOROL) injection 1 mcg (COMPLETED) 1811 (Given - Provider: Josue Byrnes RN) 1 mcg, Intravenous, ONCE IN DIALYSIS/CRR T, On Padmaja 06/28/13 at 1615, For 1 dose, Given during each dialysis (per request), Dialysis epoetin mauricio (EPOGEN,PROCRIT) 14,000 Units injection (COMPLETED) 1811 (Given - Provider: Josue Byrnes RN) 14,000 Units, Intravenous, ONCE, On Padmaja 06/28/13 at 1615, For 1 dose, Given during each dialysis (per request) 81815 units = 65378 unit vial + 4000 unit vial, Dialysis, Hemoglobin reviewed? MD has review ed/ordered hemoglobin within the required timeline heparin 100 UNIT/ML injection 500 Units (COMPLETED) 1632 (Given by Other - Provider: Tyrel Gonzalez RN - Comment: intra-procedure per Dr Fuentes; 250 units each into arteial and venous dialysis fistula access sheaths.) 500 Units, Intracatheter, ONCE, Padmaja 06/28 at 1645, For 1 dose, 250 units per Dialysis Fistulagram Sheaths X2 iopamidol (ISOVUE-300) IV solution 61% 150 mL (COMPLETED) 1634 (Given - Provider: ADELINA Christianson - Comment: 100ml opened 45 used) 150 mL, Arterial, ONCE, Padmaja 06/28/13 at 1545, For 1 dose, IR Intr a-procedure PRN Medication Order 06/26/2013 06/27/2013 06/28/2013 fentaNYL (SUBLIMAZE) injection 25-50 mcg (CANCELED) 153 (Given - Provider: Hans Pérez, LINDA)160 (Given - Provider: Hans Pérez RN) 25-50 mcg, Intravenous, for 2 Minutes, E VERY 5 MIN PRN, Starting Padmaja 06/28/13 at 1536, severe pain, If inadequate response may repeat 25 mcg IV slowly Q 5 min PRN severe pain, Doses can be exceeded under direct oversight of patient by physician., IR Intra-procedure lidocaine (PF) (XYLOCAINE) 1 % injection 1-30 mL (COMPLETED) 1623 (Given by Other - Provider: Tyrel Gonzalez RN - Comment: IR Intra-procedure per Dr Fuentes) 1-30 mL, Subcutaneous, ONCE PRN, for loc al anesthetic.?When verbally ordered by prescriber during the procedure., Starting Padmaja 06/28/13 at 1536, For 1 dose, Dose to be divided into smaller volumes appropriate for the procedure., IR Intra-procedure midazolam (VERSED) injection 0.5-1 mg (CANCELED) 153 (Given - Provider: Hans Pérez RN)1606 (Given - Provider: Hans Pérez, LINDA) 0.5-1 mg, Intravenous, for 1 Minutes, EV KAROL 4 MIN PRN, Starting Padmaja 06/28/13 at 1536, sedation, If inadequate response may repeat 0.5 mg IV slowly Q 4 minutes PRN sedation until desired response., Doses can be exceeded under direct oversight o f patient by physician., IR Intra-procedure documented in this encounter Care Teams Overlocker Relationship Specialty Start Date End Date Preet Huff PCP - General 06/24/11 documented as of this encounter
--- OUTSIDE RECORDS SUMMARY | 2022-09-01 20:22 | XMS_ITS | Encounter Summary ---
:1965 Author Organization [place] Address [address] [facility] [place] [address] Care Team Providers Name Role Phone Preet Huff Primary Care Provider Reason for Visit Reason Onset Date Comments Clinic Care Coordination - Follow-up 06/03/2014 Encounter Details Date Type Department Care Team Description 06/03/2014 Telephone [facility] Jaxon Saravia [facility] [place] MD Coordination - [id number] [place] [phone] [place] [address] (Wo rk) Social History Tobacco Use Types Packs/Day Years Used Date Smoking Tobacco: Never Smokeless Tobacco: Never Alcohol Use Standard Drinks/Week Comments No 0 (1 standard drink = 0.6 oz pure alcoho l) Sex Assigned at Date Recorded Not on file documented as of this encounter Miscellaneous Notes Telephone Encounter - Jovana Wilkinson RN - 06/03/2014 3:48 PM CDT Teo, nurse with [facility] [phone], called to report that pt's wound culture came back positive for gram positive cocci; sensitivities not complete yet. Blood culture negative. Pt scheduled for surgery tomorrow; they gave 1 dose of Ancef today. She is wondering if Dr. Saravia will be ordering antibiotics or if she should get orders from umbrella repairer. I informed her that umbrella repairer typically orders antibiotics but if difficulty obtaining order, I can contact Dr. Saravia. She sent copy of culture results, which I sent to be scanned in chart. I informed Dr. Saravia of findings - he said that Herminio will also receive millicent-op Ancef; I left message for Toe informing her of this information. Jovana Wilkinson RN CVN documented in this encounter Plan of Treatment Not on filedocumented as of this encounter Visit Diagnoses Not on filedocumented in this encounter Care Teams Warehouse Supervisor Relationship Specialty Start Date End Date Preet Huff PCP - General 06/24/11 documented as of this encounter
--- OUTSIDE RECORDS SUMMARY | 2022-09-01 20:22 | XMS_ITS | Encounter Summary ---
:1965 Author Organization [place] Address [address] [facility] [place] [address] Care Team Providers Name Role Phone Preet Huff Primary Care Provider Reason for Visit Auth/Cert - Closed Specialty Diagnoses / Procedures Referred By Contact Refer red To Contact Surgery Diagnoses clotted off RENAL FAILURE [id number] Main Or Procedures ir dept fistual 0730am CREATE FISTULA ARTERIOVENOUS LOWER EXTREMITY [address] [place] [phone] Phone: Fax: Referral ID Status Reason Start Date Expiration Date Visits Requ ested Visits Authorized [id number] Closed 1 1 Encounter Details Date Type Department Care Team Description 06/20/2013 Anesthesia Event M [facility] Shashi García MD [facility] [address] [place] [id number] [facility] Lizandro Luther MD MA [facility] [address] [id number] Services [address], [address] [place] [address] Anesthesia Record Procedure Summary Procedure Name Responsible Anesthesia Start Anesthesia Stop Time Anesthesiologist Time LEFT GROIN PTFE Gonzalo García MD 06/20/13 0736 1029 DIALYSIS ACCESS (Left: Leg) Events Date Time Event Comment 06/20/2013 0712 0736 An Start 0740 An Start Data 0747 An Induction 0750 An Intubation 0750 AN START SEVO 0803 AN INCISION 0821 Quick Note Glucose 92 at 08 22. 0929 Quick Note Glucose 86 at 09 30. 1017 AN END SEVO 1017 An Emergence 1017 AN Extubation 1025 an stop data 1029 An Stop Electronically s igned by JESSIE ZARATE on June 20, 2013 10:29 A M Name Total ePHEDrine 50 mg/mL 5 mg fentaNYL 50 mcg/mL 175 mcg glycopyrrolate 0.2 mg/mL 0.5 mg lidocaine 2% 60 mg propofol 10 mg/mL 200 mg rocuronium 10 mg/mL 40 mg ceFAZolin vial 1 gm 3 g neostigmine 1mg/mL 3 mg phenylephrine drip 40 mcg/mL 2.42 mg 0.9 % sodium chloride IV solution 200 mL Agents Name O2 N2O Exp Sevoflurane Ins Sevoflurane Blood No blood administrations on file. Lines, Drains, and Airways Type Details Placement Removal Incision/Surgical Site 10/20/11; 2000; Lower, 10/20/112000 by 1 11/18/15 1120 by Right; Arm; 09/17/16; Mona Vang Johnso n, Lisa D, RN 1120 RN Incision/Surgical Site 10/20/11; 2002; Upper, 10/20/112002 by 1 11/18/15 1120 by Right; Arm; 09/17/16; Mona Vnag Johnso n, Lisa D, RN 1120 RN Incision/Surgical Site 05/03/12; 1600; Right; 05/03/12 1600 by 1 11/18/15 1120 by Groin; 09/17/16; 1120 Monserrat Blake Johnson, Lisa D, RN slug press operator Vascular Arteriovenous fistula; 08/03/12 1948 by 1120 by Access Right; Thigh Megan Ochoa RN Incision/Surgical Site 08/08/12; 1527; Right; 08/08/12 1527 by 1 11/18/15 1120 by Groin; 09/17/16; 1120 Macie Amin L isa D, RN Israel, RN Incision/Surgical Site 08/09/12; 1401; Right; 08/09/12 1401 by 1 11/18/15 1120 by Groin; 09/17/16; 1120 Aleta Taylor, Hans Ritter, RN Incision/Surgical Site 08/09/12; 1403; 08/09/12 1403 by 09/17/16 1120 by Anterior, Right; Thigh; Aleta Taylor, Megan Ritter RN 09/17/16; 1120 Peripheral IV 05/07/13; 1205; Left, 05/07/13 1205 by 11/21/15 1005 by Anterior; Lower forearm; Arianna Ennis, Vu Solitario, (attempted Lt. A/C x 2); RN Chlorhexidine; None; 2; Tolerated well (Nurse to call anesthesia to start, veins small) Peripheral IV 06/19/13; 0745; 20 G, 1 06/19/13 0745 by 3 1155 by 1/2 inch; Right; Rocio Shipley, Paz Pace, Accessory cephalic; RN RN Tolerated well RETIRED ETT 06/20/13; 0750; Airway 06/20/13 0750 by 06/20/13 1017 by Size: 8; Cuffed; Oral Jessie Zarate K athcammie endotracheal tube; Place JUDITH Gordillo, JUDITH by: JAMARCUS JOHN, JAMARCUS RICKETTS Glidescope used without difficulty.; Insertion Attempts: 1; Secured at (cm)to lip: 22 cm; Breath Sounds: Equal, clear and bilateral; End Tidal CO2: Present; Dentition: Other (comment) (edentulous); Grade View of Cords: 1; Airway Adjuncts: Ranger scope Incision/Surgical Site 06/20/13; 1001; Left; 06/20/13 1001 by 1120 by Groin; 09/17/16; 1120 Macie Amin L isa D, RN LINDA Wood documented in this encounter Social History Tobacco Use Types Packs/Day Years Used Date Smoking Tobacco: Never Smokeless Tobacco: Never Alcohol Use Standard Drinks/Week Comments No 0 (1 standard drink = 0.6 oz pure alcoho l) Sex Assigned at Date Recorded Not on file documented as of this encounter OR Notes Anesthesia Postprocedure Evaluation - Gonzalo García MD - 06/20/2013 2:12 PM CDT Anesthesia Post-Evaluation Note Patient: Herminio Victor Patient location: PACU Procedure(s) Performed: Procedure(s) with comments: CREATE FISTULA ARTERIOVENOUS LOWER EXTREMITY - LEFT GROIN PTFE DIALYSIS ACCESS Anesthesia type: General, ETT Post Op Diagnosis: * No post-op diagnosis entered *. Post Op Diagnosis Additional Comments:No value filed. Patient Condition Respiratory Function (RR / SpO2 / Airway Patency): Satisfactory Cardiac Function (HR / Rhythm / BP): Satisfactory Mental Status: Satisfactory Temperature: Satisfactory Pain Control: Satisfactory PONV: None Beta-Jh Therapy: Maintained Perioperatively Hydration Status: Satisfactory Last Vitals: Filed Vitals: 06/20/13 1205 06/20/13 1230 06/20/13 1300 BP: 148/69 133/67 148/69 Pulse: Temp: 36.3 ??C (97.4 ??F) Resp: 16 16 16 SpO2: 100% 100% 99% Additional Comments: Anesthesia Preprocedure Evaluation - Lizandro Luther MD - 06/20/2013 7:10 AM CDT Anesthesia Evaluation . ROS/MED HX Pulmonary: (+) sleep apnea doesn't use CPAP (-) tobacco use, asthma and COPD Neurologic: Comment: Cognitive impairment Blindness (-) seizures and CVA Cardiovascular: (+) hypertension . . (-) CAD, CHF, GÓMEZ, syncope, pacemaker/ICD and arrhythmias METS/Exercise Tolerance: Hematologic: (+) History of blood clots pt is anticoagulated, Anemia, Musculoskeletal: GI/Hepatic: - neg GI/hepatic ROS Renal: (+) chronic renal disease type: ESRD Pt requires dialysis type: Hemodialysis Pt has no history of transplant Endo: (+) type II DM Using insulin Other Endocrine Disorder (hyperlipidemia) Psychiatric: Infectious Disease: Other: Physical Exam Normal systems: cardiovascular and pulmonary Airway Mallampati: III TM distance: >3 FB Neck ROM: full Dental (+) upper dentures, lower dentures and missing Cardiovascular Rhythm and rate: regular and normal (-) no murmur Pulmonary breath sounds clear to auscultation Anesthesia Plan ASA Scores 3 . Plan for General and ETT - with Intravenous and Propofol induction. Maintenance will be Balanced. Equipment:Videolaryngoscope Routine analgesia and antiemetics to be used for post-operative care. Anesthetic plan, risks, benefits and alternatives discussed with: patient or client relations representative. Possibility of blood products discussed. History & Physical Review History and physical reviewed; no interval change.AVOID VERSED GLIDESCOPE IN ROOM Zofran, fentanyl. . documented in this encounter Miscellaneous Notes Anesthesia Care Transfer Note - Jessie Zarate APRN CRNA - 06/20/2013 10:29 AM CDT Anesthesia Care Transfer Note Patient: Herminio Victor Transferred to: PACU Patient vital signs: stable Airway: nonePt exhibits spontaneous respirations, follows commands, suctioned, extubated, dentition unchanged, exchanging well. Transferred to PACU with 10 L O2 via mask. All monitors on, report to ROBBIE. Jessie Zarate CRNA documented in this encounter Plan of Treatment Not on filedocumented as of this encounter Visit Diagnoses Not on filedocumented in this encounter Administered Medications Inactive Administered Medications - up to 3 most recent administrations Medication Order MAR Action Action Date Dose Rate Site ceFAZolin (ANCEF) 1 g vial to attach Given 06/20/2013 9:45 AM CD T 1 g to IVPB Routine, PRN, Starting on Tue06/20/13 at 0755, Anesthesia Intra-op Given 06/20/2013 7:55 AM CDT 2 g ePHEDrine injection Given 06/20/2013 8:00 AM CDT 5 mg PRN, Starting on Tue06/20/13 at 0800, Anesthesia Intra-op fentaNYL (SUBLIMAZE) injection Given 06/20/2013 9:45 AM CDT 25 mcg PRN, moderate to severe pain, Starting on Tue06/20/13 at 0747, Anesthesia Intra-op Given 06/20/2013 9:36 AM CDT 25 mcg Given 06/20/2013 9:30 AM CDT 25 mcg glycopyrrolate (ROBINUL) injection Given 06/20/2013 9:30 AM CDT 0.5 mg PRN, Starting on Tue06/20/13 at 0930, Anesthesia Intra-op lidocaine 2% Given 06/20/2013 7:47 AM CDT 60 mg PRN, Starting on Tue06/20/13 at 0747, Anesthesia Intra-op neostigmine (PROSTIGMINE) injection Given 06/20/2013 9:30 AM CDT 3 mg Intravenous, PRN, Starting on Tue06/20/13 at 0930, Anesthesia Intra-op phenylephrine 10 mg + NaCl Restarted 06/20/2013 8:33 AM 0.5 mcg/ kg/min 60.6 mL/hr 0.9% 250 mL CDT CONTINUOUS PRN, Starting on Tue06/20/13 at 0804, Anesthesia Intra-op New Bag 06/20/2013 8:04 AM CDT 0.5 mcg/kg/min 60.6 mL/hr propofol (DIPRIVAN) injection Given 06/20/2013 7:50 AM CDT 50 mg PRN, Starting on Tue06/20/13 at 0747, Anesthesia Intra-op Given 06/20/2013 7:47 AM CDT 150 mg rocuronium (ZEMURON) injection Given 06/20/2013 7:47 AM CDT 40 mg PRN, Starting on Tue06/20/13 at 0747, Anesthesia Intra-op documented in this encounter Care Teams Marina Sales And Service Supervisor Relationship Specialty Start Date End Date Preet Huff PCP - General 06/24/11 documented as of this encounter
--- OUTSIDE RECORDS SUMMARY | 2022-09-01 20:22 | XMS_ITS | Encounter Summary ---
:1965 Author Organization [place] Address [address] [facility] [place] [address] Care Team Providers Name Role Phone Preet Huff Primary Care Provider Reason for Visit Auth/Cert - Closed Specialty Diagnoses / Procedures Referred By Contact Refer red To Contact Surgery Diagnoses LEFT FEMORAL PTFE LOOP GRAFT PSEUDO ANEURYSM Sh Periop Services Procedures <REVISION FISTULA ARTERIOVENOUS LOWER EXTREMITY> [address], [address] [place] [address] Phone: Referral ID Status Reason Start Date Expiration Date Visits Requ ested Visits Authorized [id number] Closed 1 1 Encounter Details Date Type Department Care Team Description 05/08/2014 Anesthesia Event M [facility] Marilyn Rojas MD [address] [place] [address] [facility] Graham Treviño MD [address] [facility] [place] [address] Services [address], [address] [place] [address] Anesthesia Record Procedure Summary Procedure Name Responsible Anesthesia Start Anesthesia Stop Anesthesiologist Time Time LEFT FEMORAL PTFE LOOP Raúl Rojas MD 05/08/14 0726 1011 GRAFT PSEUDOANEURYSM REPAIR (Left: Leg) Events Date Time Event Comment 05/08/2014 0649 0726 An Start 0730 An Start Data 0757 AN INCISION 1005 an stop data 1011 An Stop Electronically s igned by Vinicio Eller on May 08, 2014 10:11 AM Name Total fentanyl 50mcg/mL 100 mcg midazolam 1mg/mL 1 mg propofol 10mg/mL 475.57 mg ceFAZolin (ANCEF) IVPB 2 g (pre-mix) 2 g heparin (porcine) 1000 UNIT/ML injection 3 mL sodium chloride 0.9% 400 mL Agents Name O2 O2 Delivery Device Blood No blood administrations on file. Lines, [...] Monserrat Blake RN Johns on, Lisa D, director of health education Vascular Arteriovenous fistula; 08/03/12 1948 by 1120 [...] Macie Amin L isa D, Mamaril, RN director of health education Vascular Arteriovenous graft; 06/20/13 1646 by 06/25 1120 by Access Left Megan Ochoa, RN Peripheral IV 06/28/13; 20 G, 1 10/1306/28/13 0000 by 06/20/14 1429 by inch; Right; Accessory Okpala, Tunde O, Marichuy Skinner, cephalic; Tolerated well RN RN Venous Sheath 06/28/13; 1550; 6 Fr; 06/28/13 1550 by 09/17/16 1120 by Other (Comment) (right Hans Pérez, Megan Jolley, fistula); Right; F RN Fuentes; 09/17/16; 1120 Arterial Sheath 06/28/13; 1600; 6 Fr; 06/28/13 1600 by 09/17/16 1120 by Other (Comment) (right Hans Pérez, Megan Jolley, thigh fistula); Right; F RN Fuentes; 09/17/16; 1120 Peripheral IV 05/08/14; 0727; 22 G, 1 05/08/14 0727 by 4 1115 by 1/4 inch; Left; Hand Vinicio Eller Lundgren, Karen K, JUDITH RICKETTS RN Incision/Surgical Site 05/08/14; 0948; Left; 05/08/14 0948 by 1652 by Leg; 06/07/14; 1652 Ama Walter, Jhon Ferrell RN RN documented in this encounter Social History Tobacco Use Types Packs/Day Years Used Date Smoking Tobacco: Never Smokeless Tobacco: Never Alcohol Use Standard Drinks/Week Comments No 0 (1 standard drink = 0.6 oz pure alcoho l) Sex Assigned at Date Recorded Not on file documented as of this encounter OR Notes Anesthesia Postprocedure Evaluation - Raúl Rojas MD - 05/08/2014 11:08 AM CDT Anesthesia Post-Evaluation Note Patient: Herminio Victor Patient location: PACU Procedure(s) Performed: Procedure(s) with comments: REVISION FISTULA ARTERIOVENOUS LOWER EXTREMITY - LEFT FEMORAL PTFE LOOP GRAFT PSEUDOANEURYSM REPAIR Anesthesia type: MAC Post Op Diagnosis: pseudoaneurysm. Post Op Diagnosis Additional Comments:No value filed. Patient Condition Respiratory Function (RR / SpO2 / Airway Patency): Satisfactory Cardiac Function (HR / Rhythm / BP): Satisfactory Mental Status: Satisfactory Temperature: Satisfactory Pain Control: Satisfactory PONV: None Beta-Jh Therapy: None indicated Hydration Status: Satisfactory Last Vitals: Filed Vitals: 05/08/14 1005 05/08/14 1015 05/08/14 1045 BP: 131/73 142/75 158/80 Temp: Resp: 16 16 16 SpO2: 100% 100% 93% Additional Comments: Anesthesia Preprocedure Evaluation - Raúl Rojas MD - 05/08/2014 6:47 AM CDT Anesthesia Evaluation . Pt has had prior anesthetic. Type: General ROS/MED HX ENT/Pulmonary: (+)sleep apnea, , . . Neurologic: Cardiovascular: (+) hypertension . : . . fainting (syncope). :. . METS/Exercise Tolerance: Hematologic: (+) Anemia, - Musculoskeletal: GI/Hepatic: Renal/Genitourinary: (+) chronic renal disease type: CRI Pt requires dialysis Pt has no history of transplant Endo: (+) type II DM Obesity, . Psychiatric: Infectious Disease: Malignancy: Other: Anesthesia Plan ASA Score: 3 . Plan for MAC - Routine analgesia and antiemetics to be used for post-operative care. Anesthetic plan, risks, benefits and alternatives discussed with: patient or clearance representative. History & Physical Review History and physical reviewed; no interval change. . documented in this encounter Miscellaneous Notes Anesthesia Care Transfer Note - Vinicio Eller APRN CRNA - 05/08/2014 10:09 AM CDT Anesthesia Care Transfer Note Patient: Herminio Victor Transferred to: PACU Patient vital signs: stable Airway: none Transferred to SDS PACU arousable breathing adequately by self, report to Marce MCKEON documented in this encounter Plan of Treatment Not on filedocumented as of this encounter Visit Diagnoses Not on filedocumented in this encounter Administered Medications Inactive Administered Medications - up to 3 most recent administrations Medication Order MAR Action Action Date Dose Rate Site 0.9 % sodium chloride IV solution New Bag 05/08/2014 7:28 AM CDT CONTINUOUS PRN, Anesthesia Intra-op, Starting on Tue05/08/14 at 0728, Until Tue05/08/14 at 1011 ceFAZolin (ANCEF) IVPB 2 g (pre-mix) Given 05/08/2014 7:40 AM CDT 2 g Routine, 2 g, Intravenous, PRE-OP/PRE-PROCEDURE, Starting on Tue05/08/14 at 0611, For 1 dose, Give first dose within 1 hour PRIOR to incision. If patient weight is greater than or equal to 120 kg change dose to 3 g., Indications: Perioperative Pharmacoprophylaxis, Pre-procedure fentaNYL (SUBLIMAZE) injection Given 05/08/2014 8:30 AM CDT 25 mcg PRN, moderate to severe pain, Starting on Tue05/08/14 at 0730, Anesthesia Intra-op Given 05/08/2014 7:45 AM CDT 25 mcg Given 05/08/2014 7:30 AM CDT 50 mcg heparin (porcine) 1000 UNIT/ML injection Given 05/08/2014 8:20 AM CDT 3 mLs Starting on Tue05/08/14 at 0708, For 1 dose, LINDA Caraballo, Dannielle: cabinet override midazolam (VERSED) injection Given 05/08/2014 7:30 AM CDT 1 mg PRN, anxiety, Starting on Tue05/08/14 at 0730, Anesthesia Intra-op propofol (DIPRIVAN) Rate/Dose Change 05/08/2014 8:30 25 mcg/kg/min 12 .6 mL/hr injection 10 mg/mL vial AM CDT CONTINUOUS PRN, Starting on Tue05/08/14 at 0730, Anesthesia Intra-op Rate/Dose Change 05/08/2014 8:01 AM CDT 50 mcg/kg/min 25.1 mL/hr Rate/Dose Change 05/08/2014 7:45 AM CDT 100 mcg/kg/min 50.3 mL/hr documented in this encounter Care Teams Actuarial Clerk Relationship Specialty Start Date End Date Preet Huff PCP - General 06/24/11 documented as of this encounter
--- OUTSIDE RECORDS SUMMARY | 2022-09-01 20:22 | XMS_ITS | Encounter Summary ---
:1965 Author Organization [place] Address [facility] [place] [address] Care Team Providers Name Role Phone Preet Huff Primary Care Provider Encounter Details Date Type Department Care Team Description 06/28/2013 Orders Only [facility] Carolyn Garcia ESRF (en d stage renal [place] Interventional Nelly RN failure) (H) (Primary Radiology [facility]ASCULAR [facility] Dx) [address] [place] [address] [facility] [phone] [place], [place] [address] Social History Tobacco Use Types Packs/Day Years [...] disease documented in this encounter Care Teams Heating And Ventilating Worker Relationship Specialty Start Date End Date Preet Huff PCP - General 06/24/11 documented as of this encounter
--- OUTSIDE RECORDS SUMMARY | 2022-09-01 20:23 | XMS_ITS | Encounter Summary ---
:1965 Author Organization [place] Address [facility]ly [facility] [place] [address] Care Team Providers Name Role Phone Preet Huff Primary Care Provider Encounter Details Date Type Department Care Team Description 03/23/2013 Results Only [facility] BUSINESS INTELLIGENCE ANALYST DIRECTOR PRODUCT [facility] CONSULT [facility] [address] [facility] [address] [place] [address] (Wo rk) Social History Tobacco Use Types [...] Priority Date/Time Associated Comments Diagnosis IR DIALYSIS 03/23/2013 3:13 PM Results f or this FISTULOGRAM RIGHT CDT procedure are in the results section. documented in this encounter Results IR Dialysis Fistulogram Right (03/23/2013 3:13 PM CDT) Anatomical Region Laterality Modality Upper Extremity Other Specimen (Source) Anatomical Collection Method Collection Time Re ceived Time Location / / Volume Laterality 03/23/2013 3:13 PM CDT Impressions 03/30/2013 2:10 PM CDT IMPRESSION: 1. Uncomplicated thrombectomy of right p roximal thigh loop graft. The loop graft may be used for hemodialysis immediately, as previous. 2. Placement of 6 mm x 5 cm Viabahn sten t graft at the arterial anastomosis, within the existing stent. Coverage of the profunda femoral artery, though this was thought to be necessary in order to maintain patency of the loop graft. Woul d not suspect arterial insufficiency given wide patency of the common femoral artery and visualized superficial femoral vein. PATRICIA OLVERA MD Narrative 03/30/2013 2:10 PM CDT INTERVENTIONAL RADIOLOGY RIGHT DIALYSIS SHUNTOGRAM HISTORY: ??47-year-old male with right p roximal thigh loop graft. Patient is undergoing hemodialysis on a chronic basis and has limited intravenous access. This particular acce ss has now thrombosed on multiple instances. TECHNIQUE: Patient was brought to the in terventional radiology department and informed consent obtained with patient's family members. Patient was placed supine on th e fluoroscopy table. Skin overlying the fistula was prepped and dr skylared in standard sterile fashion. Given lack of palpable thrill t hrough the fistula graft, ultrasound was used to visualize the gra ft directly. Ultrasound image stored for documentation. 1% lidocaine u sed for local anesthesia. The graft was accessed in antegrade and retr ograde locations with micropuncture kits and 6 [place] sheath p laced in both access points. 3 mg of tPA was then administered throug hout the outflow segment. 6 mm balloon angioplasty performed in the outflow segment, as well as 9 mm balloon angioplasty in the common fem oral vein. Possis device was then used for mechanical thrombectomy th roughout the graft for a total of approximately 250 seconds. Via the retrograde access, JB1 catheter and wire was used to advance th rough the proximal arterial anastomosis stent. A Mont[place] Oca wire was plac ed and thrombectomy performed by pulling balloon through the stent. Th is was performed on several instances with rupture of the balloon on the second instance. Completion angiogram demonstrates improv ed blood flow through the stent and fistula, though suspect the st ent is fractured at the midportion with irregular filling defect in the more distal portion of the stent. Unable to clear this filli ng defect with repeat angioplasty. Therefore, it was decided t o proceed with a covered stent through the existing stent in orde r to maintain longevity in the fistula. An 018 system was used, and a 6 mm x 5 cm Viabahn was placed through the existing stent with s light extension into the graft segment of the existing stent as o pposed to the common femoral artery. Stent was deployed and completio n angiogram performed demonstrating wide patency of the stent and the fistula. Profunda femoral branches are no longer identifie d, as they are covered by the stent graft. The new stent does not furt her extend into the common femoral artery. Completion venogram perf ormed throughout the outflow segment and 10 mm balloon performed thro ughout the common femoral vein. Good flow noted at completion. Rem ainder of the graft is widely patent. Both sheaths were removed and he mostasis achieved with manual compression. Sedation: 50 mcg intravenous fentanyl, 0 .5 mg intravenous Versed. During the procedure, 3 mg tPA was admin istered into the surgical graft. 10 mL of hydralazine administered due to considerably elevated blood pressure. Please note the above medications were a dministered by the interventional radiology staff under my direct supervision. Patient's vital signs are monitored and remained s table throughout the procedure. Contrast: 110 mL of Isovue 300 administe red intravenously and intra-arterially without complication. Fluoroscopic time: 7.2 minutes. Local anesthetic: 7 mL of 1% lidocaine. FINDINGS: Initial venogram confirms thro mbosis of right proximal thigh loop for dialysis. Possis device u sed throughout the outflow segment as well as 6 mm balloon angiopla sty within the graft as well as 9 mm balloon angioplasty in the nativ e common femoral vein and external iliac vein. Completion after us ing a Possis device demonstrates minimal residual thrombus, though as of yet no antegrade blood flow. A Huerta end-hole wedge ball oon catheter was then placed through the arterial anastomosis and pul led through the arterial anastomosis to the retrograde sheath. Bl ood flow was then reestablished through the graft. 6 mm ba lloon angioplasty performed through a stent at the proximal arterial anastomosis. After repeated angioplasties, there remains moderate fi lling defect within the stent. Additionally, the midportion of t he stent appears fractured. Therefore, it was decided to proceed wit h placement of a Viabahn stent graft measuring 6 mm x 5 cm. Ballo on angioplasty performed at completion. Wide patency of the stent an d entire graft was confirmed at completion. Unfortunately, placing a covered stent, branches of the profunda femoral artery are now cove red without antegrade blood flow through the common femoral artery. Distal branches will likely fill via internal iliac and iliolumbar b ranches. Do not suspect this will present an ischemic risk for this o therwise relatively young patient. Common femoral and superficial femoral arteries are widely patent. 10 mm balloon angioplasty was th en performed in the outflow segment/common femoral vein with decent result at completion. Procedure Note Patricia Olvera MD - 03/30/2013 INTERVENTIONAL RADIOLOGY RIGHT DIALYSIS SHUNTOGRAM HISTORY: 47-year-old male with right pro ximal thigh loop graft. Patient is undergoing hemodialysis on a chronic basis and has limited intravenous access. This particular acce ss has now thrombosed on multiple instances. TECHNIQUE: Patient was brought to the in terventional radiology department and informed consent obtained with patient's family members. Patient was placed supine on th e fluoroscopy table. Skin overlying the fistula was prepped and dr aped in standard sterile fashion. Given lack of palpable thrill t hrough the fistula graft, ultrasound was used to visualize the gra ft directly. Ultrasound image stored for documentation. 1% lidocaine u sed for local anesthesia. The graft was accessed in antegrade and retr ograde locations with micropuncture kits and 6 [place] sheath p laced in both access points. 3 mg of tPA was then administered throug hout the outflow segment. 6 mm balloon angioplasty performed in the outflow segment, as well as 9 mm balloon angioplasty in the common fem oral vein. Possis device was then used for mechanical thrombectomy th roughout the graft for a total of approximately 250 seconds. Via the retrograde access, JB1 catheter and wire was used to advance th rough the proximal arterial anastomosis stent. A Montes [place] Oca wire was plac ed and thrombectomy performed by pulling balloon through the stent. Th is was performed on several instances with rupture of the balloon on the second instance. Completion angiogram demonstrates improv ed blood flow through the stent and fistula, though suspect the st ent is fractured at the midportion with irregular filling defect in the more distal portion of the stent. Unable to clear this filli ng defect with repeat angioplasty. Therefore, it was decided t o proceed with a covered stent through the existing stent in orde r to maintain longevity in the fistula. An 018 system was used, and a 6 mm x 5 cm Viabahn was placed through the existing stent with s light extension into the graft segment of the existing stent as o pposed to the common femoral artery. Stent was deployed and completio n angiogram performed demonstrating wide patency of the stent and the fistula. Profunda femoral branches are no longer identifie d, as they are covered by the stent graft. The new stent does not furt her extend into the common femoral artery. Completion venogram perf ormed throughout the outflow segment and 10 mm balloon performed thro ughout the common femoral vein. Good flow noted at completion. Rem ainder of the graft is widely patent. Both sheaths were removed and he mostasis achieved with manual compression. Sedation: 50 mcg intravenous fentanyl, 0 .5 mg intravenous Versed. During the procedure, 3 mg tPA was admin istered into the surgical graft. 10 mL of hydralazine administered due to considerably elevated blood pressure. Please note the above medications were a dministered by the interventional radiology staff under my direct supervision. Patient's vital signs are monitored and remained s table throughout the procedure. Contrast: 110 mL of Isovue 300 administe red intravenously and intra-arterially without complication. Fluoroscopic time: 7.2 minutes. Local anesthetic: 7 mL of 1% lidocaine. FINDINGS: Initial venogram confirms thro mbosis of right proximal thigh loop for dialysis. Possis device u sed throughout the outflow segment as well as 6 mm balloon angiopla sty within the graft as well as 9 mm balloon angioplasty in the nativ e common femoral vein and external iliac vein. Completion after us ing a Possis device demonstrates minimal residual thrombus, though as of yet no antegrade blood flow. A Huerta end-hole wedge ball oon catheter was then placed through the arterial anastomosis and pul led through the arterial anastomosis to the retrograde sheath. Bl ood flow was then reestablished through the graft. 6 mm ba lloon angioplasty performed through a stent at the proximal arterial anastomosis. After repeated angioplasties, there remains moderate fi lling defect within the stent. Additionally, the midportion of t he stent appears fractured. Therefore, it was decided to proceed wit h placement of a Viabahn stent graft measuring 6 mm x 5 cm. Ballo on angioplasty performed at completion. Wide patency of the stent an d entire graft was confirmed at completion. Unfortunately, placing a covered stent, branches of the profunda femoral artery are now cove red without antegrade blood flow through the common femoral artery. Distal branches will likely fill via internal iliac and iliolumbar b ranches. Do not suspect this will present an ischemic risk for this o therwise relatively young patient. Common femoral and superficial femoral arteries are widely patent. 10 mm balloon angioplasty was th en performed in the outflow segment/common femoral vein with decent result at completion. IMPRESSION IMPRESSION: 1. Uncomplicated thrombectomy of right p roximal thigh loop graft. The loop graft may be used for hemodialysis immediately, as previous. 2. Placement of 6 mm x 5 cm Viabahn sten t graft at the arterial anastomosis, within the existing stent. Coverage of the profunda femoral artery, though this was thought to be necessary in order to maintain patency of the loop graft. Woul d not suspect arterial insufficiency given wide patency of the common femoral artery and visualized superficial femoral vein. PATRICIA OLVERA MD Chey Barba APRN DIRECTOR PRODUCT IMG IR ORDERABLES documented in this encounter Visit Diagnoses Not on filedocumented in this encounter Care Teams Feather Baler Relationship Specialty Start Date End Date Preet Huff PCP - General 06/24/11 documented as of this encounter
--- OUTSIDE RECORDS SUMMARY | 2022-09-01 20:23 | XMS_ITS | Encounter Summary ---
:1965 Author Organization [place] Address [address] [place] [address]. [place] [address] Care Team Providers Name Role Phone Preet Huff Primary Care Provider Encounter Details Date Type Department Care Team Description 11/26/2012 Results Only [facility] Wojciech Holman MD [facility] [address] [place] [address] [address] [place], [place] [id number] (Wo rk) Social History Tobacco Use Types Packs/Day Years Used Date Smoking Tobacco: Never Smokeless Tobacco: Never Alcohol Use Standard Drinks/Week Comments No 0 (1 standard drink = 0.6 oz pure alcoho l) Sex Assigned at Date Recorded Not on file documented as of this encounter Plan of Treatment Scheduled Orders Name Type Priority Associated Diagnoses Order S chedule INT US guided venous access Imaging Ordered: 11/26/2012 rt documented as of this encounter Visit Diagnoses Not on filedocumented in this encounter Care Teams Roll Repairer Relationship Specialty Start Date End Date Preet Huff PCP - General 06/24/11 documented as of this encounter
--- OUTSIDE RECORDS SUMMARY | 2022-09-01 20:23 | XMS_ITS | Encounter Summary ---
:1965 Author Organization [place] Address [address] [place] [address]. [place] [address] Care Team Providers Name Role Phone Huff, Preet Hans Primary Care Provider Encounter Details Date Type Department Care Team Description 03/09/2013 Hospital Encounter [facility] Wojciech Holman, Pressure Dispatcher [address] [place], [place] [facility] [phone] [facility] [phone] [place] [id number] (Wo rk) Social History Tobacco Use Types Packs/Day Years Used Date Smoking Tobacco: Never Smokeless Tobacco: Never Alcohol Use Standard Drinks/Week Comments No 0 (1 standard drink = 0.6 oz pure alcoho l) Sex Assigned at Date Recorded Not on file documented as of this encounter Last Filed Vital Signs Vital Sign Reading Time Taken Comments Blood Pressure 205/99 03/09/2013 2:00 PM CDT Pulse 66 03/09/2013 2:00 PM CDT Temperature 36.7 ??C (98 ??F) 03/09/2013 9:29 AM CDT Respiratory Rate 18 03/09/2013 2:00 PM CDT Oxygen Saturation 100% 03/09/2013 2:00 PM CDT Inhaled Oxygen Concentration - - Weight - - Height - - Body Mass Index - - documented in this encounter Discharge Instructions Discharge InstructionsKaris Rosa RN - 03/09/2013 11:43 AM CDT Invasive Radiology Procedures Discharge Instructions Patient Name: Herminio Victor Today's Date: March 09, 2013 The doctor who did your procedure today was Procedure: Fistulagram: After a Fistulagram - ?? For the first 24 hours, keep the leg raised on pillows as much as you [...] (buzzing feeling), call your doctor or dialysis clinic. ?? You should have an adult with you for at least the first 6 hours ?? No driving or drinking alcohol until tomorrow. You may still have side effects from the medications you received today(you may feel drowsy, unsteady or forgetful). Diet and medicines ?? Go back to [...] medicine to sedate you: You were given: Benadryl You may feel drowsy, forgetful or unsteady. [...] have: ?? Severe chest pain or trouble breathing ?? Bleeding that you cannot control. Important phone numbers: [facility] at [phone] documented in this encounter Medications at Time of Discharge Medication Sig Dispensed Refills Start Date End Date b chbvjri-N-xvfxi acid Take 1 capsule by 0 03/04/2016 (NEPHROCAPS) 1 MG capsule mouth daily (with dinner) bisacodyl (DULCOLAX) 5 MG Take 10 mg by mouth 2 times daily. 2 x 5 mg tabs bid per [facility] 0 06/19/2013 EC tablet calcium acetate (PHOSLO) Take 1,334 mg by 0 11/19/2015 667 MG CAPS mouth 3 times daily (with meals) HYDROcodone-acetaminophen Take 1 tablet by 20 tablet 0 10/201106/21/2013 5-325 MG per mouth every 6 hours tabletIndications: A-V as needed for pain. fistula (H) lactulose (CHRONULAC) 10 Take 40 g by mouth 0 06/19/2013 GM/15ML solution daily. 10 g/15ml solution. Take 60 ml once daily. Per [facility] LISINOPRIL PO Take 40 mg by mouth daily Hold on days of dialysis 0 06/19/2013 (Lisinopril 40 mg daily per [facility]--[facility] does not have hold on dialysis days listed) metoprolol (LOPRESSOR) 50 Take 100 mg by mouth 0 06/19/2013 MG tablet 2 times daily. 50mg tabs take 2 tabs bid per [facility] simvastatin (ZOCOR) 40 MG Take 40 mg by mouth 0 12/16/2017 tablet every evening warfarin (COUMADIN) 5 MG Take 0.5 tablets by 90 tablet 1 12/16/2015 tabletIndications: Renal mouth daily. dialysis device, implant, or graft complication documented as of this encounter Progress Notes O'Lizandro, G Jagdeep, MD - 03/12/2013 8:54 AM CDT Wojciech Holman MD - 03/10/2013 6:38 PM CDT Karis Rosa RN - 03/09/2013 9:49 AM CDT Pt and mother unaware of recent meds taken-see dialysis flow sheet for current list documented in this encounter Plan of Treatment Not on filedocumented as of this encounter Procedures Procedure Name Priority Date/Time Associated Diagnosis Comme nts [facility] IMAGING SCAN Routine 03/09/2013 12:31 PM CDT documented in this encounter Results IR Dialysis Fistulagram - [facility] Imaging Scan (03/09/2013 12:31 PM CDT) Anatomical Region Laterality Modality Other Narrative This result has an attachment that is no t available. Michele Fuentes MD IMG DIAGNOSTIC IMAGING ORDER NADIA documented in this encounter Visit Diagnoses Not on filedocumented in this encounter Administered Medications Inactive Administered Medications - up to 3 most recent administrations Medication Order MAR Action Action Date Dose Rate Site alteplase (CATHFLO ACTIVASE) Given by Other 03/09/2013 10:18 AM CDT 4 mg injection 4 mg 4 mg, Other, ONCE, On Tue03/09/13 at 0900, For 1 dose diphenhydrAMINE (BENADRYL) injection 50 mg Given 03/09/2013 9:52 AM CDT 50 mg 50 mg, Intravenous, ONCE, On Tue03/09/13 at 1000, For 1 dose fentaNYL (SUBLIMAZE) injection 25-50 mcg Given 03/09/2013 11:49 AM CDT 25 mcg 25-50 mcg, Intravenous, EVERY 5 MIN PRN, severe pain (7-10), If inadequate response may repeat 25 mcg IV slowly Q 5 min PRN severe pain, Administer over 2 Minutes, Starting on Tue03/09/13 at 1036, Doses can be exceeded under direct oversight of patient by physician., IR Intra-procedure hydrALAZINE (APRESOLINE) injection 5 mg Given 03/09/2013 11:52 AM CDT 5 mg 5 mg, Intravenous, ONCE, On Tue03/09/13 at 1200, For 1 dose midazolam (VERSED) injection 0.5-1 mg Given 03/09/2013 11:50 AM CDT 0.5 mg 0.5-1 mg, Intravenous, Administer over 1 Minutes, EVERY 4 MIN PRN, sedation, If inadequate response may repeat 0.5 mg IV slowly Q 4 minutes PRN sedation until desired response., Starting on Tue03/09/13 at 1036, Doses can be exceeded under direct oversight of patient by physician., IR Intra-procedure documented in this encounter Active and Recently Administered Medications Times are shown in CDT. Scheduled Medication Order 03/07/2013 03/08/2013 03/09/2013 alteplase (CATHFLO ACTIVASE) injection 4 mg (COMPLETED) 1018 (Given by Other - Provider: Karis Rosa, RN - Comment: given into fistula access in right leg by Dr Fuentes) 4 mg, Other, ONCE, Tue03/09/13 at 0900, For 1 dose diphenhydrAMINE (BENADRYL) injection 50 mg (COMPLETED) 0952 (Given - Provider: Karis Rosa, RN) 50 mg, Intravenous, ONCE, Tue03/09/13 at 1000, For 1 dose hydrALAZINE (APRESOLINE) injection 5 mg (COMPLETED) 1152 (Given - Provider: Nely Ortiz, LINDA) 5 mg, Intravenous, ONCE, Tue03/09/13 at 1200, For 1 dose PRN Medication Order 03/07/2013 03/08/2013 03/09/2013 fentaNYL (SUBLIMAZE) injection 25-50 mcg (CANCELED) 1149 (Given - Provider: Nely Ortiz, LINDA) 25-50 mcg, Intravenous, for 2 Minutes, E VERY 5 MIN PRN, Starting Tue03/09/13 at 1036, severe pain, If inadequate response may repeat 25 mcg IV slowly Q 5 min PRN severe pain, Doses can be exceeded under direct oversight of patient by physician., IR Intra-procedure midazolam (VERSED) injection 0.5-1 mg (CANCELED) 1150 (Given - Provider: Nely Ortiz RN) 0.5-1 mg, Intravenous, for 1 Minutes, EV KAROL 4 MIN PRN, Starting Tue03/09/13 at 1036, sedation, If inadequate response may repeat 0.5 mg IV slowly Q 4 minutes PRN sedation until desired response., Doses can be exceeded under direct oversight o f patient by physician., IR Intra-procedure documented in this encounter Care Teams Fire Tender Relationship Specialty Start Date End Date Preet Huff PCP - General 06/24/11 documented as of this encounter
--- OUTSIDE RECORDS SUMMARY | 2022-09-01 20:23 | XMS_ITS | Encounter Summary ---
:1965 Author Organization [place] Address [address] [place] [address] Care Team Providers Name Role Phone Preet Huff Primary Care Provider Encounter Details Date Type Department Care Team Description 03/22/2013 [facility] Inter[facility] Radio logy Andria Bishop arteriovenous graft (H) [address] (Primary Dx) [place] [address] Social History Tobacco Use Types Packs/Day Years Used Date Smoking Tobacco: Never Smokeless Tobacco: Never Alcohol Use Standard Drinks/Week Comments No 0 (1 standard drink = 0.6 oz pure alcoho l) Sex Assigned at Date Recorded Not on file documented as of this encounter Plan of Treatment Not on filedocumented as of this encounter Visit Diagnoses Diagnosis 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
--- OUTSIDE RECORDS SUMMARY | 2022-09-01 20:23 | XMS_ITS | Encounter Summary ---
:1965 Author Organization [place] Address [facility] [place] [address] Care Team Providers Name Role Phone Preet Huff Primary Care Provider Encounter Details Date Type Department Care Team Description 09/15/2012 [facility] Interventional Radio logy RN [address] [place] [address] [place] [phone] [id number] Social History Tobacco Use Types Packs/Day Years [...] on filedocumented in this encounter Care Teams Searchlight Operator Relationship Specialty Start Date End Date Preet Huff PCP - General 06/24/11 documented as of this encounter
--- OUTSIDE RECORDS SUMMARY | 2022-09-01 20:23 | XMS_ITS | Encounter Summary ---
:1965 Author Organization [place] Address [address] [place] [address] Care Team Providers Name Role Phone Preet Huff Primary Care Provider Encounter Details Date Type Department Care Team Description 05/22/2013 [facility] Buffy R Zainab tted dialysis access Interventional Radio logy (H) (Primary Dx) [address] [place] [address] Social History Tobacco Use Types Packs/Day Years Used Date Smoking Tobacco: Never Smokeless Tobacco: Never Alcohol Use Standard Drinks/Week Comments No 0 (1 standard drink = 0.6 oz pure alcoho l) Sex Assigned at Date Recorded Not on file documented as of this encounter Plan of Treatment Not on filedocumented as of this encounter Visit Diagnoses Diagnosis Clotted dialysis access (H) - Primary Mechanical complication of other vascula r device, implant, and graft documented in this encounter Care Teams Safekeeping Clerk Relationship Specialty Start Date End Date Preet Huff PCP - General 06/24/11 documented as of this encounter
--- OUTSIDE RECORDS SUMMARY | 2022-09-01 20:23 | XMS_ITS | Encounter Summary ---
:1965 Author Organization [place] Address [address] [facility] [place] [address] Care Team Providers Name Role Phone Preet Huff Primary Care Provider Encounter Details Date Type Department Care Team Description 10/27/2012 Orders Only [facility] OmJaxon dyer Renal fa ilure (Primary [facility] MD Preet Dx) [address] [place] [address] [address] [place] [address] Social History Tobacco Use Types Packs/Day Years [...] unspecified documented in this encounter Care Teams Mc Kay Machine Operator Relationship Specialty Start Date End Date Preet Huff PCP - General 06/24/11 documented as of this encounter
--- OUTSIDE RECORDS SUMMARY | 2022-09-01 20:23 | XMS_ITS | Encounter Summary ---
:1965 Author Organization [place] Address [address] [place] [address] Care Team Providers Name Role Phone Preet Huff Primary Care Provider Jaxon Saravia MD Unavailable [phone] Encounter Details Date Type Department Care Team Description 05/07/2013 Orders Only [facility] Layla Garcia, Interventional Radio logy RN [address] [place] [phone] Social History Tobacco Use Types Packs/Day Years [...] on filedocumented in this encounter Care Teams Graphic Arts Technician Relationship Specialty Start Date End Date Preet Huff PCP - General 06/24/11 Jaxon Saravia, Assigned Heart and Vascular 12/06/20 MD Provider [address] [place] [id number] documented as of this encounter
--- OUTSIDE RECORDS SUMMARY | 2022-09-01 20:23 | XMS_ITS | Encounter Summary ---
:1965 Author Organization [place] Address [address] [place] [address] Care Team Providers Name Role Phone Preet Huff Primary Care Provider Jaxon Saravia MD Unavailable [phone] Encounter Details Date Type Department Care Team Description 05/07/2013 Orders Only [facility] Radha, Clotted di alysis [place] [facility] Layla Rees RN acc ess (H) (Primary Radiology Dx) [address] [place] [phone] Social History Tobacco Use Types Packs/Day Years [...] graft documented in this encounter Care Teams Brand Strategy Manager Relationship Specialty Start Date End Date Preet Huff PCP - General 06/24/11 Jaxon Saravia, Assigned Heart and Vascular 12/06/20 Provider [address] [place] [id number] documented as of this encounter
--- OUTSIDE RECORDS SUMMARY | 2022-09-01 20:23 | XMS_ITS | Encounter Summary ---
:1965 Author Organization [place] Address [address] [place] [address]. [place] [address] Care Team Providers Name Role Phone [place] Preet Hans Primary Care Provider Encounter Details Date Type Department Care Team Description 03/09/2013 Results Only [facility] Wojciech Holman MD [facility] [address] [place] [phone] [place], [place] [id number] (Wo rk) Social History Tobacco Use Types [...] Priority Date/Time Associated Diagnosis Comme nts IR DECLOT DIALYSIS 03/09/2013 12:19 PM Re sults for this GRAFT RT CDT procedure are i n the results section. documented in this encounter Results INT Declot dialysis graft rt (03/09/2013 12:19 PM CDT) Anatomical Region Laterality Modality Chest Other Specimen (Source) Anatomical Collection Method Collection Time Re ceived Time Location / / Volume Laterality 03/09/2013 12:19 PM CDT Impressions 03/13/2013 4:58 PM CDT Impression: Dialysis graft declot performed as described above. Focal stenoses at the arterial anastomosis, th e venous anastomosis, and in the common femoral vein distal to the ve nous anastomosis were dilated as above with improvement in luminal eusebio meter. HAYDEN FUENTES MD Narrative 03/13/2013 4:58 PM CDT Procedure: 1. Right thigh dialysis graft declot 2. Mechanical thrombectomy dialysis igor t. 3. Angioplasty arterial anastomosis, corey ous anastomosis, and outflow right common femoral vein. History: 47-year-old male with a right t high loop dialysis graft. The graft has clotted. Comparison: 12/22/2012 Description of procedure: After obtainin g informed consent, the patient was placed in a supine position on the fluoroscopy table. The right thigh was prepped and draped in th e usual sterile manner. 1% lidocaine was injected for local anesthe burke. Under ultrasound guidance using 20-gauge Gelcos, access i nto the graft was obtained in the arterial limb directed towards the v enous anastomosis, at the apex of the graft directed towards the a rterial anastomosis and the venous limb directed towards the venous anastomosis. 4 mg TPA was injected into the graft. TPA was left in place for 30 minutes. The Gelcos were replaced with 6 Greenlandic s yari at the apex of the graft and in the arterial limb. Research And Evaluation Manager al thrombectomy using AngioJet device was used to clear thromb us from the graft. A CHARLI one catheter was then ma neuvered into the right common femoral artery an angiogram was p erformed. The majority of the thrombus within the graft had been removed. There appeared to be a severe stenosis at the venous anastomosis and in the common femoral vein just past the venous anastomosis. In addition, a stent which had been placed across the a rterial anastomosis was partially disrupted. There was intimal h yperplasia versus wall adherent thrombus within the stent. A 6 mm balloon was used to dilate the st ent at the arterial anastomosis. An 9 mm balloon was used to dilate the venous anastomosis and ??the common femoral vei n just past the venous anastomosis. At this time, this was felt to be a sati sfactory endpoint for the procedure. Both sheaths were pulled. Pre ssure was held at the puncture sites for 20 minutes with good hemostasis. The patient tolerated the procedure well . There were no immediate postprocedure complications. The patient 's vital signs were monitored by radiology nursing staff under my supe rvision and remained stable throughout the study. Medications: Versed 0.5 mg, fentanyl 25 mcg, Ancef 1 g, hydralazine 5 mg, TPA 4 mg, Benadryl 50 mg Sedation time: 90 minutes Fluoroscopy time: 4.7 minutes Contrast: 60 cc Isovue-300 Procedure Note Hayden Fuentes MD - 03/13/2013F ormatting of this note might be different from the original. Procedure: 1. Right thigh dialysis graft declot 2. Mechanical thrombectomy dialysis igor t. 3. Angioplasty arterial anastomosis, corey ous anastomosis, and outflow right common femoral vein. History: 47-year-old male with a right t high loop dialysis graft. The graft has clotted. Comparison: 12/22/2012 Description of procedure: After obtainin g informed consent, the patient was placed in a supine position on the fluoroscopy table. The right thigh was prepped and draped in th e usual sterile manner. 1% lidocaine was injected for local anesthe burke. Under ultrasound guidance using 20-gauge Gelcos, access i nto the graft was obtained in the arterial limb directed towards the v enous anastomosis, at the apex of the graft directed towards the a rterial anastomosis and the venous limb directed towards the venous anastomosis. 4 mg TPA was injected into the graft. TPA was left in place for 30 minutes. The Gelcos were replaced with 6 Greenlandic s yari at the apex of the graft and in the arterial limb. Research And Evaluation Manager al thrombectomy using AngioJet device was used to clear thromb us from the graft. A CHARLI one catheter was then ma neuvered into the right common femoral artery an angiogram was p erformed. The majority of the thrombus within the graft had been removed. There appeared to be a severe stenosis at the venous anastomosis and in the common femoral vein just past the venous anastomosis. In addition, a stent which had been placed across the a rterial anastomosis was partially disrupted. There was intimal h yperplasia versus wall adherent thrombus within the stent. A 6 mm balloon was used to dilate the st ent at the arterial anastomosis. An 9 mm balloon was used to dilate the venous anastomosis and the common femoral vein just past the venous anastomosis. At this time, this was felt to be a sati sfactory endpoint for the procedure. Both sheaths were pulled. Pre ssure was held at the puncture sites for 20 minutes with good hemostasis. The patient tolerated the procedure well . There were no immediate postprocedure complications. The patient 's vital signs were monitored by radiology nursing staff under my supe rvision and remained stable throughout the study. Medications: Versed 0.5 mg, fentanyl 25 mcg, Ancef 1 g, hydralazine 5 mg, TPA 4 mg, Benadryl 50 mg Sedation time: 90 minutes Fluoroscopy time: 4.7 minutes Contrast: 60 cc Isovue-300 IMPRESSION Impression: Dialysis graft declot perfor med as described above. Focal stenoses at the arterial anastomosis, th e venous anastomosis, and in the common femoral vein distal to the ve nous anastomosis were dilated as above with improvement in luminal eusebio meter. HAYDEN FUENTES MD G Jagdeep Holman MD IMG IR ORDERABLES documented in this encounter Visit Diagnoses Not on filedocumented in this encounter Care Teams Mining Analyst Relationship Specialty Start Date End Date Preet Huff PCP - General 06/24/11 documented as of this encounter
--- OUTSIDE RECORDS SUMMARY | 2022-09-01 20:23 | XMS_ITS | Encounter Summary ---
:1965 Author Organization [place] Address [address] [facility] [place] [address] Care Team Providers Name Role Phone Preet Huff Primary Care Provider Reason for Visit (Routine) - Closed Specialty Diagnoses / Procedures Referred By Contact Refer red To Contact Diagnoses tunnled lumbar cath removal Care Suites Procedures i.r. dept 1300 tunneld lumabr removal [address] [phone] Phone: Referral ID Status Reason Start Date Expiration Date Visits Requ ested Visits Authorized [id number] Closed 10/27/2012 10/27/2013 1 1 Encounter Details Date Type Department Care Team Description 11/08/2012 Hospital Encounter [facility] Michele Fuentes ESRF (end stage [place] [facility] MD Jared renal failure) (H) Suites [place] [address] RADIOLOGIC CONS [place]acs [address] [phone] [facility] [phone] [place] [address] Social History Tobacco Use Types Packs/Day Years Used Date Smoking Tobacco: Never Smokeless Tobacco: Never Alcohol Use Standard Drinks/Week Comments No 0 (1 standard drink = 0.6 oz pure alcoho l) Sex Assigned at Date Recorded Not on file documented as of this encounter Last Filed Vital Signs Vital Sign Reading Time Taken Comments Blood Pressure 133/67 11/08/2012 3:45 PM LAY OUT INSPECTOR Pulse 65 11/08/2012 3:45 PM LAY OUT INSPECTOR Temperature 36.4 ??C (97.6 ??F) 11/08/2012 1:35 PM LAY OUT INSPECTOR Respiratory Rate 16 11/08/2012 3:45 PM LAY OUT INSPECTOR Oxygen Saturation 100% 11/08/2012 3:45 PM LAY OUT INSPECTOR Inhaled Oxygen Concentration - - Weight 74.4 kg (164 lb) 11/08/2012 1:35 PM LAY OUT INSPECTOR Height 162.6 cm (5' 4) 11/08/2012 1:35 PM LAY OUT INSPECTOR Body Mass Index 28.15 11/08/2012 1:35 PM LAY OUT INSPECTOR documented in this encounter Medications at Time of Discharge Medication Sig Dispensed Refills Start Date End Date b [id number]-G-[id number] acid Take 1 capsule by 0 03/04/2016 [...] documented as of this encounter Progress Notes Carolyn Garcia - 11/08/2012 3:25 PM CST Interventional Radiology Intra-procedural Nursing Note Patient Name: Herminio Victor Today's Date: November 08, 2012 Start Time: 1530 End of procedure time: 1540 Procedure: removal of translumbar tunneled catheter Report given to: Eric RN Time pt departs: [address] Designer: Other Notes: Dr. Saravia here to discuss recent ultrasound of groin fistula. Pt here to have tunneled catheter removed because fistula working. No LDA created for dialysis catheter upon insertion. Pt consented. Dr. Olvera present. Catheter removed per Dr. Olvera. Pt tolerated procedure well. Carolyn Garcia OUT INSPECTOR documented in this encounter Plan of Treatment Not on filedocumented as of this encounter Procedures Procedure Name Priority Date/Time Associated Diagnosis Comme nts IR CVC TUNNEL Routine 11/08/2012 5:14 PM ESRF (end stage Resul ts for this REMOVAL RIGHT LAY OUT INSPECTOR renal failure) (H) procedur e are in the results section. documented in this encounter Results INT Tunnel catheter removal rt (11/08/2012 5:14 PM LAY OUT INSPECTOR) Anatomical Region Laterality Modality Chest Radio Fluoroscopy Specimen (Source) Anatomical Collection Method Collection Time Re ceived Time Location / / Volume Laterality 11/08/2012 5:14 PM LAY OUT INSPECTOR Impressions 11/09/2012 3:51 PM LAY OUT INSPECTOR IMPRESSION: Uncomplicated removal of translumbar tunneled dialysis catheter. TOM OLVERA MD Narrative 11/09/2012 3:51 PM LAY OUT INSPECTOR TUNNEL CATHETER REMOVAL RIGHT October at 1714 hours HISTORY: 47-year-old male with long-nelson ding renal failure. Patient has translumbar tunneled catheter. Patie nt has working fistula in the right groin. Request made for catheter r emoval. TECHNIQUE: The patient was [facility] and placed in a semiprone pos ition. The tunneled catheter and surrounding skin were prepped and dr aped in standard sterile fashion. With gentle traction, the cuff was freed from the subcutaneous surface. Pressure was held over the skin entry site and subcutaneous tract for approximately 10 minutes. Sterile gauze and adhesive applied at completion. Patient tolerated the procedure well without complication. No sedation, fluor oscopy, or contrast administered. Procedure Note Tom Olvera MD - 11/09/2012 TUNNEL CATHETER REMOVAL RIGHT October at 1714 hours HISTORY: 47-year-old male with long-nelson ding renal failure. Patient has translumbar tunneled catheter. Patie nt has working fistula in the right groin. Request made for catheter r emoval. TECHNIQUE: The patient was brought to [facility] interventional radiology department and placed in a semiprone pos ition. The tunneled catheter and surrounding skin were prepped and dr aped in standard sterile fashion. With gentle traction, the cuff was freed from the subcutaneous surface. Pressure was held over the skin entry site and subcutaneous tract for approximately 10 minutes. Sterile gauze and adhesive applied at completion. Patient tolerated the procedure well without complication. No sedation, fluor oscopy, or contrast administered. IMPRESSION IMPRESSION: Uncomplicated removal of tra nslumbar tunneled dialysis catheter. TOM OLVERA MD Jaxon Saravia MD IMG IR ORDERABLES documented in this encounter Visit Diagnoses Diagnosis ESRF (end stage renal failure) (H) End stage renal disease documented in this encounter Care Teams Line Server Relationship Specialty Start Date End Date Preet Huff PCP - General 06/24/11 documented as of this encounter
--- OUTSIDE RECORDS SUMMARY | 2022-09-01 20:23 | XMS_ITS | Encounter Summary ---
:1965 Author Organization [place] Address [address] [place] [address] Care Team Providers Name Role Phone Preet Huff Primary Care Provider Jaxon Saravia MD Unavailable [phone] Encounter Details Date Type Department Care Team Description 12/21/2012 Orders Only [facility] Layla Garcia, Interventional Radio logy RN [address] [place] [phone] Social History Tobacco Use Types Packs/Day Years [...] on filedocumented in this encounter Care Teams Associate Curator Relationship Specialty Start Date End Date Preet Huff PCP - General 06/24/11 Jaxon Saravia, Assigned Heart and Vascular 12/06/20 MD Provider [address] [place] [id number] documented as of this encounter
--- OUTSIDE RECORDS SUMMARY | 2022-09-01 20:23 | XMS_ITS | Encounter Summary ---
:1965 Author Organization [facility] [place] [address] Care Team Providers Name Role Phone Preet Huff Primary Care Provider Encounter Details Date Type Department Care Team Description 09/15/2012 Orders Only [facility] Carolyn Garcia ESRF (en d stage renal [place] Interventional Nelly RN failure) (H) (Primary Radiology VASCULAR HEALTH Dx) [address] [place] [address] [address] [facility] [phone] [place], [place] [address] Social History Tobacco Use Types Packs/Day Years [...] disease documented in this encounter Care Teams Philosophy Specialist Relationship Specialty Start Date End Date Preet Huff PCP - General 06/24/11 documented as of this encounter
--- OUTSIDE RECORDS SUMMARY | 2022-09-01 20:23 | XMS_ITS | Encounter Summary ---
:1965 Author Organization [place] Address [address] [place] [address]. [place] [address] Care Team Providers Name Role Phone Preet Huff Primary Care Provider Encounter Details Date Type Department Care Team Description 05/07/2013 Results Only [facility] Brian Styles MD [address] [facility] [place] [phone] [facility] [phone] [address] [place] [address] (Wo rk) Social History Tobacco Use Types [...] US Guided Venous Access Imaging O rdered: 05/07/2013 Right documented as of this encounter Visit Diagnoses Not on filedocumented in this encounter Care Teams Varying Exceptionalities Teacher Relationship Specialty Start Date End Date Preet Huff PCP - General 06/24/11 documented as of this encounter
--- OUTSIDE RECORDS SUMMARY | 2022-09-01 20:23 | XMS_ITS | Encounter Summary ---
:1965 Author Organization [place] Address [address] [place] [address]. [place] [address] Care Team Providers Name Role Phone Preet Huff Primary Care Provider Encounter Details Date Type Department Care Team Description 12/22/2012 Results Only [facility] CARE TRANSITION MGR PRODUCE TEAM MEMBER INTERMED CONSULT [facility] [address] [facility] [address] [place] [address] (Wo rk) Social History Tobacco Use Types [...] Associated Diagnosis Comme nts IR DECLOT DIALYSIS 12/22/2012 11:01 AM Re sults for this GRAFT RT CDT procedure are i n the results section. documented in this encounter Results INT Declot dialysis graft rt (12/22/2012 11:01 AM CDT) Anatomical Region Laterality Modality Chest Other Specimen (Source) Anatomical Collection Method Collection Time Re ceived Time Location / / Volume Laterality 12/22/2012 11:01 AM CDT Impressions 12/22/2012 4:58 PM CDT Impression: Dialysis graft declot performed as described above. Focal stenoses at the arterial anastomosis, th e venous anastomosis, and in the common femoral vein distal to the ve nous anastomosis were dilated as above with improvement in luminal eusebio meter. There appears to be partial disruption of the stent at the a rterial anastomosis. If the graft for clots again, consider placing a covered stent at site of the distribution. MICHELE FUENTES MD Narrative 12/22/2012 4:58 PM CDT Procedure: 1. Right thigh dialysis graft declot 2. Mechanical thrombectomy dialysis igor t. 3. Angioplasty arterial anastomosis, corey ous anastomosis, and outflow right common femoral vein. History: 47-year-old male with a right t high loop dialysis graft. The graft has clotted. Comparison: 09/20/2012 Description of procedure: After obtainin g informed [...] minutes. The Gelcos were replaced with 6 Mongolian s yari at the apex of the graft and in the arterial limb. Electricians Top Helper al thrombectomy using AngioJet device and a still cleaner tube device wer e used to clear thrombus from the graft. A CHARLI one catheter [...] st ent at the arterial anastomosis. An 8 mm balloon was used to dilate the venous anastomosis and a 10 mm balloon was used to dilate the common femoral vein just past the venous anastomosis. Followup angiogram showed improved flow and improvement in luminal diameter at the sites of angioplasty. Th ere remained mild irregularity within the mid stent at the arterial anastomosis. At this time, this was felt to be a satisfa ctory endpoint for the procedure. Both sheaths were pulled. Pre ssure was held at the puncture sites for 20 minutes with good hemostasis. The patient tolerated the procedure well . There were no immediate postprocedure complications. The patient 's vital signs were monitored by radiology nursing staff under my supe rvision and remained stable throughout the study. Medications: Versed 0.5 mg, fentanyl 50 mcg, Ancef 1 g, hydralazine 20 mg, TPA 4 mg, Benadryl 25 mg Sedation time: 60 minutes Fluoroscopy time: 13.1 minute Contrast: 70 cc Isovue-300 Procedure Note Michele Fuentes MD - 12/22/2012F ormatting of this note might be different from the original. Procedure: 1. Right thigh dialysis graft declot 2. Mechanical thrombectomy dialysis igor t. 3. Angioplasty arterial anastomosis, corey ous anastomosis, and outflow right common femoral vein. History: 47-year-old male with a right t high loop dialysis graft. The graft has clotted. Comparison: 09/20/2012 Description of procedure: After obtainin g informed [...] minutes. The Gelcos were replaced with 6 Mongolian s yari at the apex of the graft and in the arterial limb. Electricians Top Helper al thrombectomy using AngioJet device and a still cleaner tube device wer e used to clear thrombus from the graft. A CHARLI one catheter [...] st ent at the arterial anastomosis. An 8 mm balloon was used to dilate the venous anastomosis and a 10 mm balloon was used to dilate the common femoral vein just past the venous anastomosis. Followup angiogram showed improved flow and improvement in luminal diameter at the sites of angioplasty. Th ere remained mild irregularity within the mid stent at the arterial anastomosis. At this time, this was felt to be a satisfa ctory endpoint for the procedure. Both sheaths were pulled. Pre ssure was held at the puncture sites for 20 minutes with good hemostasis. The patient tolerated the procedure well . There were no immediate postprocedure complications. The patient 's vital signs were monitored by radiology nursing staff under my supe rvision and remained stable throughout the study. Medications: Versed 0.5 mg, fentanyl 50 mcg, Ancef 1 g, hydralazine 20 mg, TPA 4 mg, Benadryl 25 mg Sedation time: 60 minutes Fluoroscopy time: 13.1 minute Contrast: 70 cc Isovue-300 IMPRESSION Impression: Dialysis graft declot perfor med as described above. Focal stenoses at the arterial anastomosis, th e venous anastomosis, and in the common femoral vein distal to the ve nous anastomosis were dilated as above with improvement in luminal eusebio meter. There appears to be partial disruption of the stent at the a rterial anastomosis. If the graft for clots again, consider placing a covered stent at site of the distribution. MICHELE FUENTES MD Chey Barba APRN PRODUCE TEAM MEMBER IMG IR ORDERABLES documented in this encounter Visit Diagnoses Not on filedocumented in this encounter Care Teams Candy Feeder Relationship Specialty Start Date End Date Preet Huff PCP - General 06/24/11 documented as of this encounter
--- OUTSIDE RECORDS SUMMARY | 2022-09-01 20:23 | XMS_ITS | Encounter Summary ---
:1965 Author Organization [facility] Address [address] [place] [id number] Care Team Providers Name Role Phone Preet Huff Primary Care Provider Encounter Details Date Type Department Care Team Description 12/21/2012 Orders Only [facility] Andria De Jesus Clotted renal dialysis Interventional Radio logy M AV graft (H) (Primary [address]) [place] [address] Social History Tobacco Use Types Packs/Day Years Used Date Smoking Tobacco: Never Smokeless Tobacco: Never Alcohol Use Standard Drinks/Week Comments No 0 (1 standard drink = 0.6 oz pure alcoho l) Sex Assigned at Date Recorded Not on file documented as of this encounter Plan of Treatment Not on filedocumented as of this encounter Visit Diagnoses Diagnosis Clotted renal dialysis AV graft (H) - Pr imary Other complications due to renal dialysi s device, implant, and graft documented in this encounter Care Teams Administrative Processor Relationship Specialty Start Date End Date Preet Huff PCP - General 06/24/11 documented as of this encounter
--- OUTSIDE RECORDS SUMMARY | 2022-09-01 20:23 | XMS_ITS | Encounter Summary ---
:1965 Author Organization [facility] Address [address] [facility] [place] [address] Care Team Providers Name Role Phone Preet Huff Primary Care Provider Reason for Visit (Routine) - Closed Specialty Diagnoses / Procedures Referred By Contact Refer red To Contact Radiology Diagnoses US ART-VENOUS DIALYSIS GRAFT Procedure Notes: Right thigh PTFE dialysis graft. Evaluate for patency prior to pulling lumbar catheter. Sh Ultrasound Procedures RADIOLOGY [address] [phone] Phone: Referral ID Status Reason Start Date Expiration Date Visits Requ ested Visits Authorized [id number] Closed 10/31/2012 10/31/2013 1 1 Encounter Details Date Type Department Care Team Description 11/08/2012 Hospital Encounter [facility] Min Saravia MD [address] [id number] Renal failure [facility] Imaging Michele Fuentes MD [facility] [address] [place], [place] [id number] [address] [phone] Social History Tobacco Use Types Packs/Day Years Used Date Smoking Tobacco: Never Smokeless Tobacco: Never Alcohol Use Standard Drinks/Week Comments No 0 (1 standard drink = 0.6 oz pure alcoho l) Sex Assigned at Date Recorded Not on file documented as of this encounter Medications at Time of Discharge Medication Sig Dispensed Refills Start Date End Date b xtznksg-O-jvbmp acid Take 1 capsule by 0 03/04/2016 [...] Associated Diagnosis Comme nts US EXTREMITY Routine 11/08/2012 1:48 PM Renal failure Results for this ARTERIAL VENOUS FOOD SERVICE HELPER procedure ar e in DIALYSIS ACCESS the results GRAFT section. documented in this encounter Results US hemodialysis access (11/08/2012 1:48 PM FOOD SERVICE HELPER) Anatomical Region Laterality Modality Vascular, Abdomen/Pelvis Ultrasound Specimen (Source) Anatomical Collection Method Collection Time Re ceived Time Location / / Volume Laterality 11/08/2012 1:48 PM FOOD SERVICE HELPER Narrative 11/08/2012 1:57 PM FOOD SERVICE HELPER US ART-VENOUS DIALYSIS GRAFT ??11/08/2012 1:48 PM HISTORY: ??Right thigh polytetrafluoroet hylene dialysis graft. Evaluate for patency prior to pulling mary mbar catheter. Comparison: Angiogram dated 09/20/2012 a nd ultrasound dated 09/20/2012 Findings: A right profunda femoris arter y to common femoral vein loop dialysis graft is patent. There is a rachel nt just past the arterial anastomosis. There are elevated velociti es within the stent and at the stent PTFE junction ranging between 369-520 cm/s. However, no definite significant stenosis are visual ized. MICHELE FUENTES MD Procedure Note Michele Fuentes MD - 11/08/2012F ormatting of this note might be different from the original. US ART-VENOUS DIALYSIS GRAFT 11/08/2012 1 :48 PM HISTORY: Right thigh polytetrafluoroethy rg dialysis graft. Evaluate for patency prior to pulling mary mbar catheter. Comparison: Angiogram dated 09/20/2012 a nd ultrasound dated 09/20/2012 Findings: A right profunda femoris arter y to common femoral vein loop dialysis graft is patent. There is a rachel nt just past the arterial anastomosis. There are elevated velociti es within the stent and at the stent PTFE junction ranging between 369-520 cm/s. However, no definite significant stenosis are visual ized. MICHELE FUENTES MD Jaxon Saravia MD IMG US ORDERABLES documented in this encounter Visit Diagnoses Diagnosis Renal failure Renal failure, unspecified documented in this encounter Care Teams Deck Supervisor Relationship Specialty Start Date End Date Preet Huff PCP - General 06/24/11 documented as of this encounter
--- OUTSIDE RECORDS SUMMARY | 2022-09-01 20:23 | XMS_ITS | Encounter Summary ---
:1965 Author Organization [facility] Address [address] [facility] [place] [address] Care Team Providers Name Role Phone Preet Huff Primary Care Provider Encounter Details Date Type Department Care Team Description 09/20/2012 Hospital Encounter [facility] Tejas Moya ESR F (end stage [facility] PMD renal failure) (H) Suites [facility] [address] [place] [place] [address] [phone] [place], [place] [address] Social History Tobacco Use Types Packs/Day Years Used Date Smoking Tobacco: Never Smokeless Tobacco: Never Alcohol Use Standard Drinks/Week Comments No 0 (1 standard drink = 0.6 oz pure alcoho l) Sex Assigned at Date Recorded Not on file documented as of this encounter Last Filed Vital Signs Vital Sign Reading Time Taken Comments Blood Pressure 155/77 09/20/2012 3:30 PM [facility] Pulse 66 09/20/2012 3:30 PM [facility] Temperature 36.9 ??C (98.4 ??F) 09/20/2012 9:20 AM [facility] Respiratory Rate 14 09/20/2012 3:30 PM [facility] Oxygen Saturation 100% 09/20/2012 3:30 PM [facility] Inhaled Oxygen Concentration - - Weight 76.2 kg (168 lb) 09/20/2012 9:20 AM [facility] Height 162.6 cm (5' 4) 09/20/2012 9:20 AM [facility] Body Mass Index 28.84 09/20/2012 9:20 AM [facility] documented in this encounter Medications at Time of Discharge Medication Sig Dispensed Refills Start Date End Date b fowzukx-W-kozyc acid Take 1 capsule by 0 03/04/2016 [...] daily. dialysis device, implant, or graft complication FOLIC ACID-VITAMIN C PO Take 100 mg by mouth 0 11/08/2012 daily. Per [facility] documented as of this encounter Progress Notes Tejas Moya MD - 10/27/2012 1:38 PM CST OF [facility]AMA Mehreen Laguna RN - 09/20/2012 4:35 PM CST dc'd to home with bung driver and instructions OF DRAMA Tejas Moya MD - 09/20/2012 2:49 PM CST Procedure: Fistula revascularization Physician: Latoya Complications: None Report:Stenosis at anastomosis of cadaver artery and PTFE graft which did not improve with high pressure RESOURCE MANAGER and cutting Balloon subsequently stented to 6 mm with good result.remainder of fistula normal. See report. OF DRAMA Carolyn Garcia - 09/20/2012 1:57 PM CST Interventional Radiology Intra-procedural Nursing Note Patient Name: Julio Cesar Victor Today's Date: September 20, 2012 Start Time: 1403 End of procedure time: 1440 Procedure: right leg fistulagram with angioplasty Report given to: silvina RN Time pt departs: 1500 Azure Developer: Other Notes:Pt here to have tunnel removed. Assessed graft, weak pulse notified Dr Moya. Ultrasoundordered of the graft. High grade stenosis in the fistula. Explained findings to POA and patient. Dr. Moya reviewed previous discharge summary from admission on 08/09/2012. Instructed to proceed with exam. EV3 Visi-pro balloon-expandable stent [id number] Carolyn Garcia OF DRAMA documented in this encounter Consult Notes Rober Buenrostro MD - 09/20/2012 5:39 PM CST CONSULTATION CHIEF COMPLAINT: Chronic renal failure on hemodialysis. HISTORY OF PRESENT ILLNESS: Julio Cesar Victor is a 47-year-old patient with retardation is on chronic hemodialysis at the [facility]. He is presently using a lumbar catheter. The patient had placement of a right Bullard and loupe anastomosed to the profundus femoral artery and outflow to the saphenofemoral junction using a cadaveric superficial femoral artery graft. This occluded and he underwent multiple interventions in early July. These were unsuccessful, he underwent a redo right profundus femoral cadaveric limb to common femoral vein 4 x 7 mm Propaten loop graft and removal of the Viabahn stent in the common femoral vein on 08/09/2012. He has been dialyzing via lumbar catheter since he has noupper arm venous access, but they have been using the femoral loop catheter several times with no difficulty. He presents for removal lumbar catheter. However, the interventional radiology staff noticed that the pulse in the right forearm loop was less than they would have expected. He therefore underwent a venous duplex ultrasound which revealed a critical stenosis with a markedly elevated velocity (over 1300 cm per second) at the anastomosis of the PTFE graft to the remnant of the cadaveric superficial femoral artery coming off the profundus femoral artery. The patient therefore underwent a right loop fistulogram by Dr. Tejas Moya of Interventional Radiology. This revealed a widely patent venous outflow tract into the common femoral vein, though some mild inconsequential narrowing was noted. A critical stenosis was noted at the anastomosis of the cadaveric superficial femoral artery to PTFE graft with some kinking noted. Attempt at angioplasty were not successful and holding the lumen patent due to recurrent kinking. After Dr. Moya discussed this with me, we have decided that placement of a balloon expandable stent was indicated. This was done withno difficulty with marked improvement of the situation. IMPRESSION: Failing right femoral graft due to the critical stenosis of the anastomosis of the cadaveric graft to the PTFE graft with the rest of the system being patent. Hopefully, this stent will correct the problem. However, if he should have further problems, we would need to consider revision of the graft to the common femoral artery. ROBER BUENROSTRO MD MT: #[id number] Name: JULIO CESAR VICTOR Account: [id number] : 1965 Consult Date: 09/20/2012 Document: [id number] cc: [facility] OF [facility]AMA documented in this encounter Plan of Treatment Scheduled Orders Name Type Priority Associated Diagnoses Order S chedule INT dialysis shuntogram Imaging Routine One time imaging for 1 right Occurrences sta rting 09/20/2012 unti l 09/20/2012 documented as of this encounter Procedures Procedure Name Priority Date/Time Associated Comments Diagnosis IR DIALYSIS 09/20/2012 2:53 PM Results f or this FISTULOGRAM RIGHT HEAD [facility]AMA procedure are in the results section. US EXTREMITY ARTERIAL Routine 09/20/2012 11:34 Re sults for this VENOUS DIALYSIS AM HEAD OF DRAMA procedure ar e in ACCESS GRAFT the results section. INR STAT 09/20/2012 9:56 AM Results f or this HEAD [facility]AMA procedure are i n the results section. documented in this encounter Results INT dialysis shuntogram right (09/20/2012 2:53 PM HEAD OF DRAMA) Anatomical Region Laterality Modality Upper Extremity Other Specimen (Source) Anatomical Collection Method Collection Time Re ceived Time Location / / Volume Laterality 09/20/2012 2:53 PM HEAD OF DRAMA Impressions 09/21/2012 9:49 AM HEAD OF DRAMA IMPRESSION: Successful revascularization of right thigh fistula. TEJAS MOYA MD Narrative 09/21/2012 9:49 AM HEAD OF [facility]AMA INTERVENTIONAL RADIOLOGY DIALYSIS SHUNTO GRAM RIGHT ??09/20/2012 2:53 PM HISTORY: A 47-year-old renal dialysis pa tient with right thigh fistula with ultrasound evidence of high -grade stenosis in the arterial limb at the anastomosis of a ar shy segment from the profunda femoris artery to a PTFE graft segment. Request is for revascularization of the stenosis. TECHNIQUE: Informed consent was obtained . The patient was prepped and draped, and 1% lidocaine was used as loc al anesthetic. Using standard technique, a puncture was made into the arterial limb of the loop graft and a 6 Telugu sheath was placed r etrogradely. A fistula gram was performed. CHARLI 1 catheter and wire we re advanced across the stenosis into the common femoral artery. Over a wire, the CHARLI 1 catheter was exchanged for a 6 mm x 4 cm high pressure [place] balloon and angioplasty was performed of the stenosis. A repeat fistulogram was performed. The balloon c atheter was then exchanged for a 6 mm x 2 cm cutting balloon and re peat angioplasty was performed. A completion angiogram was ag ain performed. Following this, the cutting balloon was removed an d exchanged for a 6 mm x 4 cm balloon expandable EV 3 which was deploy ed across the stenosis. The stent was expanded to 6 mm. The catheter was then advanced over a wire into the common femoral artery and a completion fistulogram was performed. The catheter and sheath ??wer e removed and manual compression was placed at the access sit e until hemostasis was obtained. There are no immediate complic ations. Fluoroscopy time 4.3 minutes Contrast 90 mL Isovue Local anesthetic 1 mL 1% lidocaine Conscious sedation 1 mg IV Versed, 50 mg IV fentanyl Sedation time 40 minutes The patient was monitored by radiology n ursing staff under my supervision and remained stable througho ut the study. FINDINGS: Fistula is patent. At the junc tion of the cadaver artery segment and PTFE anastomosis in the prox imal arterial limb of the graft, a narrowing is identified which m ay be partially due to kinking or tortuosity of the anastomosis . This could not be resolved following angioplasty with high-pressure balloon or cutting balloon. Following stent placement, the stenosis resolved and there was brisk flow throughout the fistula. The remaini ng loop fistula as well as the venous anastomosis appear widely pat ent. The common femoral and proximal profunda femoris artery inflow as well as the common femoral vein outflow appear normal. Procedure Note Tejas Moya MD - 09/21/2012Formatti gab of this note might be different from the original. INTERVENTIONAL RADIOLOGY DIALYSIS SHUNTO GRAM RIGHT 09/20/2012 2:53 PM HISTORY: A 47-year-old renal dialysis pa tient with right thigh fistula with ultrasound evidence of high -grade stenosis in the arterial limb at the anastomosis of a ar shy segment from the profunda femoris artery to a PTFE graft segment. Request is for revascularization of the stenosis. TECHNIQUE: Informed consent was obtained . The patient was prepped and draped, and 1% lidocaine was used as loc al anesthetic. Using standard technique, a puncture was made into the arterial limb of the loop graft and a 6 Telugu sheath was placed r etrogradely. A fistula gram was performed. CHARLI 1 catheter and wire we re advanced across the stenosis into the common femoral artery. Over a wire, the CHARLI 1 catheter was exchanged for a 6 mm x 4 cm high pressure [place] balloon and angioplasty was performed of the stenosis. A repeat fistulogram was performed. The balloon c atheter was then exchanged for a 6 mm x 2 cm cutting balloon and re peat angioplasty was performed. A completion angiogram was ag ain performed. Following this, the cutting balloon was removed an d exchanged for a 6 mm x 4 cm balloon expandable EV 3 which was deploy ed across the stenosis. The stent was expanded to 6 mm. The catheter was then advanced over a wire into the common femoral artery and a completion fistulogram was performed. The catheter and sheath were removed and manual compression was placed at the access sit e until hemostasis was obtained. There are no immediate complic ations. Fluoroscopy time 4.3 minutes Contrast 90 mL Isovue Local anesthetic 1 mL 1% lidocaine Conscious sedation 1 mg IV Versed, 50 mg IV fentanyl Sedation time 40 minutes The patient was monitored by radiology n ursing staff under my supervision and remained stable througho ut the study. FINDINGS: Fistula is patent. At the junc tion of the cadaver artery segment and PTFE anastomosis in the prox imal arterial limb of the graft, a narrowing is identified which m ay be partially due to kinking or tortuosity of the anastomosis . This could not be resolved following angioplasty with high-pressure balloon or cutting balloon. Following stent placement, the stenosis resolved and there was brisk flow throughout the fistula. The remaini ng loop fistula as well as the venous anastomosis appear widely pat ent. The common femoral and proximal profunda femoris artery inflow as well as the common femoral vein outflow appear normal. IMPRESSION IMPRESSION: Successful revascularization of right thigh fistula. TEJAS MOYA MD Rober Buenrostro MD IMG IR ORDERABLES US hemodialysis access (09/20/2012 11:34 AM HEAD OF [facility]AMA) Anatomical Region Laterality Modality Vascular, Abdomen/Pelvis Other Specimen (Source) Anatomical Collection Method Collection Time Re ceived Time Location / / Volume Laterality 09/20/2012 11:34 AM [facility] Impressions 09/21/2012 7:58 AM HEAD OF [facility]AMA IMPRESSION: ??Patent right thigh fistula with high-grade stenosis at the anastomosis of the PTFE segment of t he graft to the cadaver artery on the arterial limb of the fistu la. TEJAS MOYA MD Narrative 09/21/2012 7:58 AM HEAD OF [place]AMA US ARTERIOVENOUS DIALYSIS GRAFT ??2011 11:34 AM HISTORY: ??Diminished pulse in right thi gh fistula. FINDINGS: The fistula is patent. There i s a high-grade stenosis at the anastomosis of the cadaver artery to the PTFE segment of the proximal lateral graft loop with elevate d velocities of 1,3161/711 cm/sec. Luminal diameter narrows to 1.9 mm. The stenosis extends for a length of approximately 2.9 mm. The re mainder of the graft appears widely patent. The [place] inflow common femoral artery and the outflow common femoral vein are normal. Procedure Note Tejas Moya MD - 09/21/2012Formatti ng of this note might be different from the original. US ARTERIOVENOUS DIALYSIS GRAFT 09/20/20 12 11:34 AM HISTORY: Diminished pulse in right thigh fistula. FINDINGS: The fistula is patent. There i s a high-grade stenosis at the anastomosis of the cadaver artery to the PTFE segment of the proximal lateral graft loop with elevate d velocities of 1,3161/711 cm/sec. Luminal diameter narrows to 1.9 mm. The stenosis extends for a length of approximately 2.9 mm. The re mainder of the graft appears widely patent. The [place] inflow common femoral artery and the outflow common femoral vein are normal. IMPRESSION IMPRESSION: Patent right thigh fistula w ith high-grade stenosis at the anastomosis of the PTFE segment of t he graft to the cadaver artery on the arterial limb of the fistu la. TEJAS MOYA MD Tejas Moya MD IMG US ORDERABLES (ABNORMAL) INR (09/20/2012 9:56 AM HEAD OF DRAMA) athologist Signature INR 1.45 (H) 0.86 - 1.14 [facility] Specimen Anatomical Collection Method Collection Time Receive d Time (Source) Location / / Volume Laterality Blood specimen 09/20/2012 9:56 AM 012 (specimen) HEAD OF [facility]AMA 10:07 AM HEAD [facility] Tejas Moya MD LAB - BLOOD ORDERABLES Performing Organization Address City/State/ZIP Code Phon e Number M [facility] [address] [id number] [facility] documented in this encounter Visit Diagnoses Diagnosis ESRF (end stage renal failure) (H) End stage renal disease documented in this encounter Administered Medications Inactive Administered Medications - up to 3 most recent administrations Medication Order MAR Action Action Date Dose Rate Site fentaNYL (SUBLIMAZE) injection Given 09/20/2012 2:07 PM HEAD [facility] [place]AMA 50 m cg 25-50 mcg 25-50 mcg, Intravenous, EVERY 5 MIN PRN, severe pain (7-10), If inadequate response may repeat 25 mcg IV slowly Q 5 min PRN severe pain, Administer over 2 Minutes, Starting on Tue09/20/12 at 1353, Doses can be exceeded under direct oversight of patient by physician., IR Intra-procedure iopamidol (ISOVUE-300) IV solution 61% 1 50 mL Given 09/20/2012 2:42 PM HEAD OF [facility]AMA 90 mLs 150 mL, Arterial, ONCE, On Tue09/20/12 at 1400, For 1 dose, Supplied and administered by Radiology. lidocaine (PF) (XYLOCAINE) 1 % injection 30 mL Given 09/20/2012 2:42 PM [facility]AMA 1 mL 30 mL, Subcutaneous, ONCE PRN, for local anesthetic.?When verbally ordered by prescriber during the procedure., Starting on Tue09/20/12 at 1353, For 1 dose, Dose to be divided into smaller volumes appropriate for the procedure., IR Intra-procedure midazolam (VERSED) injection 0.5-1 mg Given 09/20/2012 2:07 PM [facility] [place] 1 mg 0.5-1 mg, Intravenous, Administer over 1 Minutes, EVERY 4 MIN PRN, sedation, If inadequate response may repeat 0.5 mg IV slowly Q 4 minutes PRN sedation until desired response., Starting on Tue09/20/12 at 1353, Doses can be exceeded under direct oversight of patient by physician., IR Intra-procedure documented in this encounter Active and Recently Administered Medications Times are shown in [facility]. Scheduled Medication Order 09/18/2012 09/19/2012 09/20/2012 iopamidol (ISOVUE-300) IV solution 61% 150 mL (COMPLETED) 1442 (Given - Provider: Heidi Orlando - Comment: total dose charted) 150 mL, Arterial, ONCE, Tue09/20/12 at 1400, For 1 dose, Supplied and administered by Radiology. PRN Medication Order 09/18/2012 09/19/2012 09/20/2012 fentaNYL (SUBLIMAZE) injection 25-50 mcg (CANCELED) 1407 (Given - Provider: Carolyn Garcia) 25-50 mcg, Intravenous, for 2 Minutes, E VERY 5 MIN PRN, Starting Tue09/20/12 at 1353, severe pain, If inadequate response may repeat 25 mcg IV slowly Q 5 min PRN severe pain, Doses can be exceeded unde r direct oversight of patient by physician., IR Intra-procedure lidocaine (PF) (XYLOCAINE) 1 % injection 30 mL (COMPLETED) 1442 (Given - Provider: Carolyn Garcia) 30 mL, Subcutaneous, ONCE PRN, for local anesthetic.?When verbally ordered by prescriber during the procedure., Starting Tue09/20/12 at 1353, For 1 dose, Dose to be divided into smaller volumes appropriate for the procedure., IR Intra-procedure midazolam (VERSED) injection 0.5-1 mg (CANCELED) 1407 (Given - Provider: Carolyn Garcia) 0.5-1 mg, Intravenous, for 1 Minutes, EV KAROL 4 MIN PRN, Starting Tue09/20/12 at 1353, sedation, If inadequate response may repeat 0.5 mg IV slowly Q 4 minutes PRN sedation until desired response., Doses can be exceeded under direct oversight of patient by physician., IR Intra-procedure documented in this encounter Care Teams Product Safety Coordinator Relationship Specialty Start Date End Date Preet Huff PCP - General 06/24/11 documented as of this encounter
--- OUTSIDE RECORDS SUMMARY | 2022-09-01 20:23 | XMS_ITS | Encounter Summary ---
:1965 Author Organization [place] Address [address] [facility] [place] [address] Care Team Providers Name Role Phone Preet Huff Primary Care Provider Encounter Details Date Type Department Care Team Description 05/07/2013 Hospital Encounter [facility] Tejas Moya Zainab tted dialysis [facility] MD Sandra access (H) Suites [facility] [address] [place] [address] [phone] [place], [place] [id number] Social History Tobacco Use Types Packs/Day Years Used Date Smoking Tobacco: Never Smokeless Tobacco: Never Alcohol Use Standard Drinks/Week Comments No 0 (1 standard drink = 0.6 oz pure alcoho l) Sex Assigned at Date Recorded Not on file documented as of this encounter Last Filed Vital Signs Vital Sign Reading Time Taken Comments Blood Pressure 193/119 05/07/2013 3:30 PM CDT Pulse 68 05/07/2013 3:30 PM CDT Temperature 36.2 ??C (97.2 ??F) 05/07/2013 11:11 AM CDT Respiratory Rate 16 05/07/2013 3:30 PM CDT Oxygen Saturation 100% 05/07/2013 3:30 PM CDT Inhaled Oxygen Concentration - - Weight - - Height - - Body Mass Index - - documented in this encounter Medications at Time of Discharge Medication Sig Dispensed Refills Start Date End Date b kfqsago-F-ynguc acid Take 1 capsule by 0 03/04/2016 [...] encounter Progress Notes Tejas Moya MD - 05/21/2013 3:31 PM CDT Rocio Shipley RN - 05/07/2013 4:10 PM CDT Discharged to R&S transportation with mother in medically stable condition. Rocio Shipley RN - 05/07/2013 3:25 PM CDT Patient returned from IR - fistulagram of right thigh dialysis fistula. Dressing dry. BP remains high. Patient alert and awake. Taking food and fluids without problem. Carolyn Garcia - 05/07/2013 2:10 PM CDT Interventional Radiology Intra-procedural Nursing Note Patient Name: Herminio Victor Today's Date: May 07, 2013 Start Time: 1410 End of procedure time: 1445 Procedure: right thigh dialysis fistulagram with declot Report given to: silvina RN Time pt departs: 1510 Operations Vice President: Other Notes: consent obtained. Pt prepped et draped sterilly. Pt tolerated procedure well Carolyn Garcia documented in this encounter H&P Notes Tejas Moya MD - 05/11/2013 2:59 PM CDT documented in this encounter Miscellaneous Notes Brief Op Note - Castro Alonzo MD - 05/07/2013 2:51 PM CDT Pre-Op Dx: Clotted R-thigh looped fistula Post-op Dx: Same Dr Moya/Dr Alonzo No complications Findings: Thrombosed right thigh loop fistula Procedure: Right thigh fistulogram, mechanical thrombectomy and TPA with angioplasty of venous anastamosis Minimal EBL, with good flow post-procedure completion angiogram Return to recovery in stable condition documented in this encounter Plan of Treatment Not on filedocumented as of this encounter Procedures Procedure Name Priority Date/Time Associated Comments Diagnosis IR DIALYSIS Routine 05/07/2013 2:58 PM Clotted dialysis Resul ts for this FISTULOGRAM RIGHT CDT access (H) procedure are in the results section. documented in this encounter Results IR Dialysis Fistulogram Right (05/07/2013 2:58 PM CDT) Anatomical Region Laterality Modality Upper Extremity Radio Fluoroscopy Specimen (Source) Anatomical Collection Method Collection Time Re ceived Time Location / / Volume Laterality 05/07/2013 2:58 PM CDT Impressions 05/08/2013 5:04 PM CDT IMPRESSION: Successful revascularization of thrombosed right thigh loop fistula. TEJAS MOYA MD Narrative 05/08/2013 5:04 PM CDT INTERVENTIONAL RADIOLOGY DIALYSIS SHUNTO GRAM RIGHT ??05/07/2013 2:59 PM HISTORY: 48-year-old male dialysis patie nt with right PTFE thigh loop fistula which is recently thrombosed. Th e patient underwent previous revascularization 03/23/2013 with Viabahn stent placement at the arterial anastomosis. TECHNIQUE: The procedure was explained t o the patient in detail. Because of lack of palpable pulse, ultra sound was used to document both the arterial and venous limbs of th e fistula and 6 Green[place]ic sheaths were placed bilaterally. A 5 [facility] wedge balloon catheter was advanced over a wire across the kelsey rial anastomosis and inflated. The arterial plug was pulled i nto the fistula. 4 mg tPA was instilled throughout the loop of the fis fredo from the arterial anastomosis to the venous anastomosis. M echanical thrombectomy was then performed with a Possis AngioJet de vice for a total of 5 minutes. A completion fistulogram was pe rformed. Residual nonocclusive thrombus was identified in the venous limb of the fistula and near the venous anastomosis and an additional 1 minute of mechanical thrombectomy was performed. A 7 mm balloon was then used to dilate the venous anastomotic stenosi s and residual irregularity of the venous limb of the graft where th e fistula had been accessed. A completion fistulogram was again perfo rmed. The sheaths were removed and manual compression was place d at both arteriotomy sites until hemostasis was obtained. There wer e no immediate complications. Fluoroscopy time: 4.7 minutes Contrast: 49 mL Optiray Local anesthetic: 5 mL of 1% lidocaine Conscious sedation: 2 mg IV Versed, 100 ? IV fentanyl Sedation time: 35 minutes The patient was monitored by radiology n ursing staff under my supervision and remained stable througho ut the study. FINDINGS: Fistula was initially thrombos ed and declotted utilizing 4 mg tPA and mechanical thrombectomy. Ther e was a moderate stenosis identified at the venous anastomosis whi ch was successfully angioplastied. Upon completion fistula a ppeared widely patent with excellent flow. Procedure Note Tejas Moya MD - 05/08/2013Formatti ng of this note might be different from the original. INTERVENTIONAL RADIOLOGY DIALYSIS SHUNTO GRAM RIGHT 05/07/2013 2:59 PM HISTORY: 48-year-old male dialysis patie nt with right PTFE thigh loop fistula which is recently thrombosed. Th e patient underwent previous revascularization 03/23/2013 with Viabahn stent placement at the arterial anastomosis. TECHNIQUE: The procedure was explained t o the patient in detail. Because of lack of palpable pulse, ultra sound was used to document both the arterial and venous limbs of th e fistula and 6 Green[place] sheaths were placed bilaterally. A 5 [facility] wedge balloon catheter was advanced over a wire across the kelsey rial anastomosis and inflated. The arterial plug was pulled i nto the fistula. 4 mg tPA was instilled throughout the loop of the fis fredo from the arterial anastomosis to the venous anastomosis. M echanical thrombectomy was then performed with a Possis AngioJet de for a total of 5 minutes. A completion fistulogram was pe rformed. Residual nonocclusive thrombus was identified in the venous limb of the fistula and near the venous anastomosis and an additional 1 minute of mechanical thrombectomy was performed. A 7 mm balloon was then used to dilate the venous anastomotic stenosi s and residual irregularity of the venous limb of the graft where th e fistula had been accessed. A completion fistulogram was again perfo rmed. The sheaths were removed and manual compression was place d at both arteriotomy sites until hemostasis was obtained. There wer e no immediate complications. Fluoroscopy time: 4.7 minutes Contrast: 49 mL Optiray Local anesthetic: 5 mL of 1% lidocaine Conscious sedation: 2 mg IV Versed, 100 ? IV fentanyl Sedation time: 35 minutes The patient was monitored by radiology n ursing staff under my supervision and remained stable througho ut the study. FINDINGS: Fistula was initially thrombos ed and declotted utilizing 4 mg tPA and mechanical thrombectomy. Ther e was a moderate stenosis identified at the venous anastomosis whi ch was successfully angioplastied. Upon completion fistula a ppeared widely patent with excellent flow. IMPRESSION IMPRESSION: Successful revascularization of thrombosed right thigh loop fistula. TEJAS MOYA MD Steven Styles MD IMG IR ORDERABLES documented in this encounter Visit Diagnoses Diagnosis Clotted dialysis access (H) Mechanical complication of other vascula r device, implant, and graft documented in this encounter Administered Medications Inactive Administered Medications - up to 3 most recent administrations Medication Order MAR Action Action Date Dose Rate Site alteplase (CATHFLO ACTIVASE) Given 05/07/2013 2:20 PM CDT 4 mg injection 4 mg 4 mg, Other, ONCE, On Tue05/07/13 at 1430, For 1 dose, Into clotted graft fentaNYL (SUBLIMAZE) injection 25-50 mcg Given 05/07/2013 2:08 PM CDT 50 mcg 25-50 mcg, Intravenous, EVERY 5 MIN PRN, severe pain (7-10), If inadequate response may repeat 25 mcg IV slowly Q 5 min PRN severe pain, Administer over 2 Minutes, Starting on Tue05/07/13 at 1326, Doses can be exceeded under direct oversight of patient by physician., IR Intra-procedure Given 05/07/2013 1:54 PM CDT 50 mcg hydrALAZINE (APRESOLINE) injection 20 mg Given 05/07/2013 2:52 PM CDT 20 mg 20 mg, Intravenous, EVERY 6 HOURS PRN, high blood pressure, Starting on Tue05/07/13 at 1452, IR Intra-procedure ioversol (OPTIRAY 320) iv solution 68% 5 0 mL Given 05/07/2013 2:50 PM CDT 49 mLs 50 mL, Intravenous, ONCE, On Tue05/07/13 at 1400, For 1 dose, IR Intra-procedure midazolam (VERSED) injection 0.5-1 mg Given 05/07/2013 2:38 PM CDT 0.5 mg 0.5-1 mg, Intravenous, Administer over 1 Minutes, EVERY 4 MIN PRN, sedation, If inadequate response may repeat 0.5 mg IV slowly Q 4 minutes PRN sedation until desired response., Starting on Tue05/07/13 at 1326, Doses can be exceeded under direct oversight of patient by physician., IR Intra-procedure Given 05/07/2013 2:08 PM CDT 1 mg Given 05/07/2013 1:54 PM CDT 0.5 mg documented in this encounter Active and Recently Administered Medications Times are shown in CDT. Scheduled Medication Order 05/05/2013 05/06/2013 05/07/2013 alteplase (CATHFLO ACTIVASE) injection 4 mg (COMPLETED) 1420 (Given - Provider: Carolyn Garcia) 4 mg, Other, ONCE, Tue05/07/13 at 1430, For 1 dose, Into clotted graft ioversol (OPTIRAY 320) iv solution 68% 50 mL (COMPLETED) 1450 (Given - Provider: Rand Killian) 50 mL, Intravenous, ONCE, Tue05/07/13 at 1400, For 1 dose, IR In tra-procedure PRN Medication Order 05/05/2013 05/06/2013 05/07/2013 fentaNYL (SUBLIMAZE) injection 25-50 mcg (CANCELED) 1354 (Given - Provider: Carolyn Garcia)1408 (Given - Provider: Carolyn Garcia) 25-50 mcg, Intravenous, for 2 Minutes, E VERY 5 MIN PRN, Starting Tue05/07/13 at 1326, severe pain, If inadequate response may repeat 25 mcg IV slowly Q 5 min PRN severe pain, Doses can be exceeded under direct oversight of patient by physician., IR Intra-procedure hydrALAZINE (APRESOLINE) injection 20 mg (CANCELED) 1452 (Given - Provider: Carolyn Garcia) 20 mg, Intravenous, EVERY 6 HOURS PRN, h igh blood pressure, Starting Tue05/07/13 at 1452, IR Intra-procedure midazolam (VERSED) injection 0.5-1 mg (CANCELED) 1354 (Given - Provider: Carolyn Garcia)1408 (Given - Provider: Carolyn Garcia)1438 (Given - Provider: Carolyn Garcia) 0.5-1 mg, Intravenous, for 1 Minutes, EV KAROL 4 MIN PRN, Starting Tue05/07/13 at 1326, sedation, If inadequate response may repeat 0.5 mg IV slowly Q 4 minutes PRN sedation until desired response., Doses can be exceeded under direct oversight o f patient by physician., IR Intra-procedure documented in this encounter Care Teams Refrigeration Lead Relationship Specialty Start Date End Date Preet Huff PCP - General 06/24/11 documented as of this encounter
--- OUTSIDE RECORDS SUMMARY | 2022-09-01 20:23 | XMS_ITS | Encounter Summary ---
:1965 Author Organization [place] Address [address] [place] [id number] Care Team Providers Name Role Phone Preet Huff Primary Care Provider Encounter Details Date Type Department Care Team Description 10/25/2012 Orders Only [facility] AteMarisa mai A, ESRF ( end stage renal [place] Interventional OCULARIST ujlianna lure) (H) (Primary Radiology Dx) [address] [place] [phone] Social History Tobacco Use Types Packs/Day Years [...] disease documented in this encounter Care Teams Trim Master Operator Relationship Specialty Start Date End Date Preet Huff PCP - General 06/24/11 documented as of this encounter
--- OUTSIDE RECORDS SUMMARY | 2022-09-01 20:23 | XMS_ITS | Encounter Summary ---
:1965 Author Organization [facility] Address [address] [place] [address]. [place] [address] Care Team Providers Name Role Phone Huff, Preet Hans Primary Care Provider Encounter Details Date Type Department Care Team Description 05/23/2013 Results Only [facility] Wojciech Holman MD [facility] [address] [place] [phone] [place], [place] [phone] (Wo rk) Social History Tobacco Use Types [...] Associated Diagnosis Comme nts IR DECLOT DIALYSIS 05/23/2013 9:51 AM Res ults for this GRAFT RT CDT procedure are i n the results section. documented in this encounter Results INT Declot dialysis graft rt (05/23/2013 9:51 AM CDT) Anatomical Region Laterality Modality Chest Other Specimen (Source) Anatomical Collection Method Collection Time Re ceived Time Location / / Volume Laterality 05/23/2013 9:51 AM CDT Impressions 05/23/2013 3:30 PM CDT IMPRESSION: Successful revascularization of rethrombosed right thigh loop fistula with stenting of the venous anastomotic stenosis and angioplasty of the stented proximal anas tomosis. TEJAS NITA, MD Narrative 05/23/2013 3:30 PM CDT INTERVENTIONAL RADIOLOGY CATHETER, MORRIS CARMONAOT DIALYSIS GRAFT, RIGHT ??05/23/2013 9:51 AM HISTORY: ??48-year-old dialysis patient with right thigh loop graft fistula that has rethrombosed. The patie nt was previously revascularized on 05/07/2013. TECHNIQUE: ??The procedure and risks wer e explained to the patient in detail. The patient was prepped and drap ed, and 1% lidocaine was used as local anesthetic. A puncture was made in both the venous and arterial limbs of the loop graft, and 6 [place]otswanan sheaths were placed on either side. A JB1 catheter and wire wer e then advanced across the arterial anastomosis, and the catheter w as exchanged for an open-ended wedge balloon catheter which was inflated, and the arterial plug was pulled into the graft. The right limb of the graft was then laced with 2 mg of tPA. A JB1 c atheter and wire were then directed through the sheath across the a rterial anastomosis, and the venous limb of the graft was laced with 2 mg of tPA. Mechanical thrombectomy with a Possis AngioJet jose ce was then performed for a total of 5 minutes. A completion angiogr am was performed. A 6 x 4 cm high pressure [place] balloon was th en used to dilate the stented arterial anastomosis. An additional one and a half minutes of mechanical thrombectomy was performed wi thin the distal margin of the stent. A completion angiogram was perfor med. An 8 mm x 4 cm balloon was then used to angioplasty the venous anastomosis. A completion angiogram was performed. An ev3 8 mm x 4 cm self-expanding stent was then used to stent the venous anastomosi s. The stent was expanded with an 8 mm balloon. A completion fistu logram was performed. The sheaths were removed, and manual rita yoseph was placed at the access sites until hemostasis was obtained. Flu oroscopy time 9.8 minutes. 80 mL Isovue 300. Local anesthetic: 4 mL 1% lidocaine. Conscious sedation: 1 mg IV Versed, 50 m cg IV fentanyl. Thrombolytics: 4 mg alteplase. Sedation time: 80 minutes. The patient was monitored by radiology n ursing staff under my supervision and remained stable througho ut the study. FINDINGS: The thigh dialysis graft was i nitially thrombosed. Fluoroscopic evaluation of the stented a rterial anastomosis demonstrated what appeared to be a tortu ous and possibly kinked but not fractured stent at the arterial anas tomosis. This was easily straightened with a high-pressure 6 mm b alloon. There was no evidence of stent fracture. Therefore, I elected not to reinforce the stent with a second stent. There was a recurre nt stenosis at the venous anastomosis which improved partially wit h angioplasty to 8 mm. This was subsequently stented with an 8 reyna meter x 4 cm stent with excellent result. Upon completion there was brisk flow throughout the graft without evidence of significant re sidual thrombus or evidence of stenosis. Procedure Note Tejas Moya MD - 05/23/2013Formatti ng of this note might be different from the original. INTERVENTIONAL RADIOLOGY CATHETER, MORRIS CORREA DECLOT DIALYSIS GRAFT, RIGHT 05/23/2013 9:51 AM HISTORY: 48-year-old dialysis patient wi th right thigh loop graft fistula that has rethrombosed. The patie nt was previously revascularized on 05/07/2013. TECHNIQUE: The procedure and risks were explained to the patient in detail. The patient was prepped and drap ed, and 1% lidocaine was used as local anesthetic. A puncture was made in both the venous and arterial limbs of the loop graft, and 6 [place] sheaths were placed on either side. A JB1 catheter and wire wer e then advanced across the arterial anastomosis, and the catheter w as exchanged for an open-ended wedge balloon catheter which was inflated, and the arterial plug was pulled into the graft. The right limb of the graft was then laced with 2 mg of tPA. A JB1 c atheter and wire were then directed through the sheath across the a rterial anastomosis, and the venous limb of the graft was laced with 2 mg of tPA. Mechanical thrombectomy with a Possis AngioJet jose ce was then performed for a total of 5 minutes. A completion angiogr am was performed. A 6 x 4 cm high pressure [place] balloon was th en used to dilate the stented arterial anastomosis. An additional one and a half minutes of mechanical thrombectomy was performed wi thin the distal margin of the stent. A completion angiogram was perfor med. An 8 mm x 4 cm balloon was then used to angioplasty the venous anastomosis. A completion angiogram was performed. An ev3 8 mm x 4 cm self-expanding stent was then used to stent the venous anastomosi s. The stent was expanded with an 8 mm balloon. A completion fistu logram was performed. The sheaths were removed, and manual rita yoseph was placed at the access sites until hemostasis was obtained. Flu oroscopy time 9.8 minutes. 80 mL Isovue 300. Local anesthetic: 4 mL 1% lidocaine. Conscious sedation: 1 mg IV Versed, 50 m cg IV fentanyl. Thrombolytics: 4 mg alteplase. Sedation time: 80 minutes. The patient was monitored by radiology n ursing staff under my supervision and remained stable througho ut the study. FINDINGS: The thigh dialysis graft was i nitially thrombosed. Fluoroscopic evaluation of the stented a rterial anastomosis demonstrated what appeared to be a tortu ous and possibly kinked but not fractured stent at the arterial anas tomosis. This was easily straightened with a high-pressure 6 mm b alloon. There was no evidence of stent fracture. Therefore, I elected not to reinforce the stent with a second stent. There was a recurre nt stenosis at the venous anastomosis which improved partially wit h angioplasty to 8 mm. This was subsequently stented with an 8 reyna meter x 4 cm stent with excellent result. Upon completion there was brisk flow throughout the graft without evidence of significant re sidual thrombus or evidence of stenosis. IMPRESSION IMPRESSION: Successful revascularization of rethrombosed right thigh loop fistula with stenting of the venous anastomotic stenosis and angioplasty of the stented proximal anas tomosis. TEJAS MOYA MD G Jagdeep Holman MD IMG IR ORDERABLES documented in this encounter Visit Diagnoses Not on filedocumented in this encounter Care Teams Knife Edger Relationship Specialty Start Date End Date Preet Huff PCP - General 06/24/11 documented as of this encounter
--- OUTSIDE RECORDS SUMMARY | 2022-09-01 20:23 | XMS_ITS | Encounter Summary ---
:1965 Author Organization [place] Address [address] [place] [address]. [place] [address] Care Team Providers Name Role Phone Preet Huff Primary Care Provider Encounter Details Date Type Department Care Team Description 12/22/2012 Hospital Encounter [facility] Wojciech Holman, Abstract Writer [address] [place], [place] [facility] [phone] [address] [facility] [phone] [place] [id number] (Wo rk) Social History Tobacco Use Types Packs/Day Years Used Date Smoking Tobacco: Never Smokeless Tobacco: Never Alcohol Use Standard Drinks/Week Comments No 0 (1 standard drink = 0.6 oz pure alcoho l) Sex Assigned at Date Recorded Not on file documented as of this encounter Last Filed Vital Signs Vital Sign Reading Time Taken Comments Blood Pressure 176/88 12/22/2012 12:03 PM CDT Pulse - - Temperature - - Respiratory Rate 16 12/22/2012 12:03 PM CDT Oxygen Saturation 100% 12/22/2012 12:03 PM CDT Inhaled Oxygen Concentration - - Weight - - Height - - Body Mass Index - - documented in this encounter Discharge Instructions Discharge Nely Zurita RN - 12/22/2012 11:22 AM CDT Invasive Radiology Procedures Discharge Instructions Patient Name: Herminio Victor Today's Date: December 22, 2012 The doctor who did your procedure today was Dr. Fuentes Procedure: Fistulagram: After a Fistulagram - ?? If you [...] feeling), call your doctor or dialysis clinic Diet and medicines ?? Go back to [...] that you cannot control. Important phone numbers: [facility] at [phone] documented in this encounter Medications at Time of Discharge Medication Sig Dispensed Refills Start Date End Date b dqnfxag-F-bflkz acid Take 1 capsule by 0 03/04/2016 [...] Name Priority Date/Time Associated Diagnosis Comme nts HIM IMAGING SCAN Routine 12/22/2012 2:04 PM CDT documented in this encounter Results Fistula Declot - HIM Imaging Scan (12/22/2012 2:04 PM CDT) Anatomical Region Laterality Modality Other Narrative This result has an attachment that is no t available. Michele Fuentes MD [facility] DIAGNOSTIC IMAGING ORDER NADIA documented in this encounter Visit Diagnoses Not on filedocumented in this encounter Administered Medications Inactive Administered Medications - up to 3 most recent administrations Medication Order MAR Action Action Date Dose Rate Site ceFAZolin (ANCEF) 1 g vial to attach New Bag 12/22/2012 9:01 AM CD T 1 g to IVPB SAVITA, 1 g, Intravenous, PRE-OP/PRE-PROCEDURE, Starting on Tue12/22/12 at 0852, For 1 dose, Indications: Perioperative Pharmacoprophylaxis diphenhydrAMINE (BENADRYL) injection 25 mg Given 12/22/2012 10:23 AM CDT 25 mg 25 mg, Intravenous, ONCE, On Tue12/22/12 at 1030, For 1 dose fentaNYL (SUBLIMAZE) injection 25-50 mcg Given 12/22/2012 10:42 AM CDT 25 mcg 25-50 mcg, Intravenous, EVERY 5 MIN PRN, severe pain (7-10), If inadequate response may repeat 25 mcg IV slowly Q 5 min PRN severe pain, Administer over 2 Minutes, Starting on Tue12/22/12 at 0942, Doses can be exceeded under direct oversight of patient by physician., IR Intra-procedure Given 12/22/2012 10:20 AM CDT 25 mcg hydrALAZINE (APRESOLINE) injection 10 mg Given 12/22/2012 10:40 AM CDT 10 mg 10 mg, Intravenous, ONCE, On Tue12/22/12 at 1015, For 1 dose Given 12/22/2012 10:20 AM CDT 10 mg midazolam (VERSED) injection 0.5-1 mg Given 12/22/2012 10:20 AM CDT 0.5 mg 0.5-1 mg, Intravenous, Administer over 1 Minutes, EVERY 4 MIN PRN, sedation, If inadequate response may repeat 0.5 mg IV slowly Q 4 minutes PRN sedation until desired response., Starting on Tue12/22/12 at 0942, Doses can be exceeded under direct oversight of patient by physician., IR Intra-procedure tPA (ALTEPLASE) 4 mg in NaCl Given by Other 12/22/2012 9:05 AM CDT 4 mg 70727 mL/hr 0.9% bolus 4 mg, Intravenous, Administer over 1 Minutes, at 15,000 mL/hr, ONCE, On Tue12/22/12 at 0900, For 1 dose documented in this encounter Active and Recently Administered Medications Times are shown in CDT. Scheduled Medication Order 12/20/2012 12/21/2012 12/22/2012 ceFAZolin (ANCEF) 1 g vial to attach to IVPB (COMPLETED) 900 (New Bag - Provider: Jovana Joaquin, LINDA) 1 g, Intravenous, PRE-OP/PRE-PROCEDURE, For 1 dose, Indications: Surgical Prophylaxis diphenhydrAMINE (BENADRYL) injection 25 mg (COMPLETED) 1023 (Given - Provider: Nely Ortiz RN) 25 mg, Intravenous, ONCE, On Tue12/22/12 at 1030, For 1 dose hydrALAZINE (APRESOLINE) injection 10 mg (COMPLETED) 1020 (Given - Provider: Nely Ortiz RN)1040 (Given - Provider: Nely Ortiz, LINDA) 10 mg, Intravenous, ONCE, On Tue12/22/12 at 1015, For 1 dose tPA (ALTEPLASE) 4 mg in NaCl 0.9% bolus (COMPLETED) 904 (Given by Other - Provider: Jovana Joaquin RN - Comment: Dr. Fuentes gave via) 4 mg, Intravenous, for 1 Minutes, ONCE, Tue12/22/12 at 0900, For 1 dose PRN Medication Order 12/20/2012 12/21/2012 12/22/2012 fentaNYL (SUBLIMAZE) injection 25-50 mcg (CANCELED) 1020 (Given - Provider: Nely Ortiz RN)1042 (Given - Provider: Nely Ortiz RN) 25-50 mcg, Intravenous, for 2 Minutes, E VERY 5 MIN PRN, Starting Tue12/22/12 at 0942, severe pain, If inadequate response may repeat 25 mcg IV slowly Q 5 min PRN severe pain, Doses can be exceeded under direct oversight of patient by physician., IR Intra-procedure midazolam (VERSED) injection 0.5-1 mg (CANCELED) 1020 (Given - Provider: Nely Ortiz, RN) 0.5-1 mg, Intravenous, for 1 Minutes, EV KAROL 4 MIN PRN, Starting Tue12/22/12 at 0942, sedation, If inadequate response may repeat 0.5 mg IV slowly Q 4 minutes PRN sedation until desired response., Doses can be exceeded under direct oversight o f patient by physician., IR Intra-procedure documented in this encounter Care Teams Supervisor Tumbling And Rolling Relationship Specialty Start Date End Date Preet Huff PCP - General 06/24/11 documented as of this encounter
--- OUTSIDE RECORDS SUMMARY | 2022-09-01 20:23 | XMS_ITS | Encounter Summary ---
:1965 Author Organization [facility] Address [address] [place] [address] Care Team Providers Name Role Phone Preet Huff Primary Care Provider Encounter Details Date Type Department Care Team Description 03/08/2013 [facility] Supervisor Process Testing failure) (H) (Primary Dx) [address] [place] [address] Social History Tobacco Use Types Packs/Day [...] ESRF (end stage renal failure) (H) - Tmaara vivien End stage renal disease documented in this encounter Care Teams Court Messenger Relationship Specialty Start Date End Date Preet Huff PCP - General 06/24/11 documented as of this encounter
--- OUTSIDE RECORDS SUMMARY | 2022-09-01 20:23 | XMS_ITS | Encounter Summary ---
:1965 Author Organization [facility] Address [address] [place] [address] Care Team Providers Name Role Phone Preet Huff Primary Care Provider Reason for Visit (Routine) - Closed Specialty Diagnoses / Procedures Referred By Contact Refer red To Contact Diagnoses Clotted Dialysis graft Rh Cath Ir Pre/Post Rm Procedures Fistula Declot right [address] [place], [place] [address] Phone: Referral ID Status Reason Start Date Expiration Date Visits Requ ested Visits Authorized [id number] Closed 03/22/2013 03/22/2014 1 1 Encounter Details Date Type Department Care Team Description 03/23/2013 Hospital Encounter [facility] Workplace Trainer And Assessor MD Raymond [address] [facility] RADIOLOG[facility] [place], [place] [phone] [address] [facility] [phone] [address] [place], [place] [id number] (Wo rk) Social History Tobacco Use Types Packs/Day Years Used Date Smoking Tobacco: Never Smokeless Tobacco: Never Alcohol Use Standard Drinks/Week Comments No 0 (1 standard drink = 0.6 oz pure alcoho l) Sex Assigned at Date Recorded Not on file documented as of this encounter Last Filed Vital Signs Vital Sign Reading Time Taken Comments Blood Pressure 177/82 03/23/2013 3:45 PM CDT Pulse - - Temperature 36.3 ??C (97.4 ??F) 03/23/2013 9:15 AM CDT Respiratory Rate 18 03/23/2013 3:45 PM CDT Oxygen Saturation 99% 03/23/2013 3:45 PM CDT Inhaled Oxygen Concentration - - Weight 82 kg (180 lb 12.4 oz) 03/23/2013 9:15 AM CDT Height - - Body Mass Index 31.03 11/08/2012 1:35 PM EMERGENCY RESPONSE COORDINATOR documented in this encounter Discharge Instructions Discharge InstructionsKaris Rosa RN - 03/23/2013 2:07 PM CDT Invasive Radiology Procedures Discharge Instructions Patient Name: Herminio Victor Today's Date: March 23, 2013 The doctor who did your procedure today was Dr. Olmstead. Procedure: Fistulagram: After a Fistulagram - ?? [...] that you cannot control. Important phone numbers: [facility] at [phone] 730am-4pm After hours contact the Interventional Radiology Nurse division operations manager at [facility] at [phone] documented in this encounter Medications at Time of Discharge Medication Sig Dispensed Refills Start Date End Date b hvajupn-E-sskwo acid Take 1 capsule by 0 03/04/2016 [...] documented as of this encounter Progress Notes Karis Rosa RN - 03/23/2013 11:10 AM CDT Up to bathroom with assistance Karis Rosa RN - 03/23/2013 9:45 AM CDT Pt ready for fistulagram. Being delayed due to urgent inpt. procedure documented in this encounter Procedure Notes Tom Olmstead MD - 03/23/2013 2:59 PM CDT Fistulagram with mechanical thrombectomy and MASTER COASTWISE YACHT of arterial and venous anastomoses. 6 mm at inflow and up to 10 mm at outflow. Viabahn stent at inflow due to stent fracture, irregularity, and recurrent stenosis. Good result at completion. Unfortunately, origin of profunda covered by stent, necessary in order in attempt to maintain patency of the graft in this patient with limited dialysis access. Viabahn placed within existing stent. May return to hemodialysis as previously scheduled. documented in this encounter Plan of Treatment Not on filedocumented as of this encounter Procedures Procedure Name Priority Date/Time Associated Diagnosis Comme nts HIM IMAGING SCAN Routine 03/23/2013 4:24 PM CDT documented in this encounter Results Fistula Declot - HIM Imaging Scan (03/23/2013 4:24 PM CDT) Anatomical Region Laterality Modality Other Narrative This result has an attachment that is no t available. Tom Olmstead MD IMG DIAGNOSTIC IMAGING ORDER NADIA documented in this encounter Visit Diagnoses Not on filedocumented in this encounter Administered Medications Inactive Administered Medications - up to 3 most recent administrations Medication Order MAR Action Action Date Dose Rate Site fentaNYL (SUBLIMAZE) injection Given 03/23/2013 2:36 PM CDT 25 m cg 25-50 mcg 25-50 mcg, Intravenous, EVERY 5 MIN PRN, severe pain (7-10), If inadequate response may repeat 25 mcg IV slowly Q 5 min PRN severe pain, Administer over 2 Minutes, Starting on Tue03/23/13 at 1323, Doses can be exceeded under direct oversight of patient by physician., IR Intra-procedure Given 03/23/2013 1:47 PM CDT 25 mcg hydrALAZINE (APRESOLINE) injection 10 mg Given 03/23/2013 1:55 PM CDT 10 mg 10 mg, Intravenous, EVERY 6 HOURS PRN, high blood pressure, Starting on Tue03/23/13 at 1354 midazolam (VERSED) injection 0.5-1 mg Given 03/23/2013 1:48 PM CDT 0.5 mg 0.5-1 mg, Intravenous, Administer over 1 Minutes, EVERY 4 MIN PRN, sedation, If inadequate response may repeat 0.5 mg IV slowly Q 4 minutes PRN sedation until desired response., Starting on Tue03/23/13 at 1323, Doses can be exceeded under direct oversight of patient by physician., IR Intra-procedure documented in this encounter Active and Recently Administered Medications Times are shown in CDT. PRN Medication Order 03/21/2013 03/22/2013 03/23/2013 fentaNYL (SUBLIMAZE) injection 25-50 mcg (CANCELED) 1347 (Given - Provider: Jovana Miller RN)1436 (Given - Provider: Jovana Miller RN) 25-50 mcg, Intravenous, for 2 Minutes, E VERY 5 MIN PRN, Starting Tue03/23/13 at 1323, severe pain, If inadequate response may repeat 25 mcg IV slowly Q 5 min PRN severe pain, Doses can be exceeded under direct oversight of patient by physician., IR Intra-procedure hydrALAZINE (APRESOLINE) injection 10 mg (CANCELED) 1355 (Given - Provider: Jovana Miller RN) 10 mg, Intravenous, EVERY 6 HOURS PRN, h igh blood pressure, Starting Tue03/23/13 at 1354 midazolam (VERSED) injection 0.5-1 mg (CANCELED) 1348 (Given - Provider: Jovana Miller RN) 0.5-1 mg, Intravenous, for 1 Minutes, EV KAROL 4 MIN PRN, Starting Tue03/23/13 at 1323, sedation, If inadequate response may repeat 0.5 mg IV slowly Q 4 minutes PRN sedation until desired response., Doses can be exceeded under direct oversight o f patient by physician., IR Intra-procedure documented in this encounter Care Teams Instrumental Musician Relationship Specialty Start Date End Date Preet Huff PCP - General 06/24/11 documented as of this encounter
--- OUTSIDE RECORDS SUMMARY | 2022-09-01 20:23 | XMS_ITS | Encounter Summary ---
:1965 Author Organization [place] Address [facility] [place] [address] Care Team Providers Name Role Phone Preet Huff Primary Care Provider Encounter Details Date Type Department Care Team Description 11/26/2012 Results Only [facility] Michele Fuentes hmad, Imaging [id number] [place] [address] [place] [address] [address] [facility] [address] [place] [address] (Wo rk) Social History Tobacco Use Types [...] on filedocumented in this encounter Care Teams Brick Tender Relationship Specialty Start Date End Date Preet Huff PCP - General 06/24/11 documented as of this encounter
--- OUTSIDE RECORDS SUMMARY | 2022-09-01 20:23 | XMS_ITS | Encounter Summary ---
:1965 Author Organization [facility] Address [address] [place] [address]. [place] [address] Care Team Providers Name Role Phone Huff, Preet Hans Primary Care Provider Encounter Details Date Type Department Care Team Description 05/23/2013 Hospital Encounter [facility] Wojciech Holman, Punch Machine Operator [address] [place], [place] [facility] [phone] [address] [facility] [phone] [address] [place], [place] [address] (Wo rk) Social History Tobacco Use Types Packs/Day Years Used Date Smoking Tobacco: Never Smokeless Tobacco: Never Alcohol Use Standard Drinks/Week Comments No 0 (1 standard drink = 0.6 oz pure alcoho l) Sex Assigned at Date Recorded Not on file documented as of this encounter Last Filed Vital Signs Vital Sign Reading Time Taken Comments Blood Pressure 217/105 05/23/2013 10:30 AM CDT Pulse 66 05/23/2013 10:30 AM CDT Temperature 36.6 ??C (97.8 ??F) 05/23/2013 8:05 AM CDT Respiratory Rate 18 05/23/2013 10:30 AM CDT Oxygen Saturation 94% 05/23/2013 10:30 AM CDT Inhaled Oxygen Concentration - - Weight 79.9 kg (176 lb 2.4 oz) 05/23/2013 8:05 AM CDT Height - - Body Mass Index 30.24 11/08/2012 1:35 PM WALLET ASSEMBLER documented in this encounter Discharge Instructions Discharge InstructionsKaris Rosa RN - 05/23/2013 9:50 AM CDT Invasive Radiology Procedures Discharge Instructions Patient Name: Herminio Victor Today's Date: May 23, 2013 The doctor who did your procedure today was Dr. Doss. Procedure: Fistulagram: After a Fistulagram - ?? [...] feeling), call your doctor or dialysis clinic If you have not received your results [...] that you cannot control. Important phone numbers: [facility] at [phone] documented in this encounter Medications at Time of Discharge Medication Sig Dispensed Refills Start Date End Date b okexndj-L-dinww acid Take 1 capsule by 0 03/04/2016 [...] Take 0.5 tablets by 90 tablet 1 11 /10/2011 12/16/2015 tabletIndications: Renal mouth daily. dialysis device, implant, or graft complication documented as of this encounter Progress Notes Tejas Klein MD - 05/23/2013 9:46 AM CDT Procedure: Fistula revascularization Physician: Latoya Complications: None Report: Successful declot with SHOT MAN and stenting of recurrent venous anastomotic stenosis. See report. Report: Transfer to [facility] post procedure. documented in this encounter Plan of Treatment Not on filedocumented as of this encounter Procedures Procedure Name Priority Date/Time Associated Diagnosis Comme [facility] IMAGING SCAN Routine 05/23/2013 10:35 AM CDT documented in this encounter Results Fistulagram - [facility] Imaging Scan (05/23/2013 10:35 AM CDT) Anatomical Region Laterality Modality Other Narrative This result has an attachment that is no t available. Tejas Klein MD IMG DIAGNOSTIC IMAGING ORDER NADIA documented in this encounter Visit Diagnoses Not on filedocumented in this encounter Administered Medications Inactive Administered Medications - up to 3 most recent administrations Medication Order MAR Action Action Date Dose Rate Site alteplase (CATHFLO ACTIVASE) Given by Other 05/23/2013 9:05 AM CDT 4 mg injection 4 mg 4 mg, Intracatheter, ONCE, On Tue05/23/13 at 0915, For 1 dose fentaNYL (SUBLIMAZE) injection 25-50 mcg Given 05/23/2013 9:24 AM CDT 50 mcg 25-50 mcg, Intravenous, EVERY 5 MIN PRN, severe pain (7-10), If inadequate response may repeat 25 mcg IV slowly Q 5 min PRN severe pain, Administer over 2 Minutes, Starting on Tue05/23/13 at 0905, Doses can be exceeded under direct oversight of patient by physician., IR Intra-procedure midazolam (VERSED) injection 0.5-1 mg Given 05/23/2013 9:25 AM CDT 1 mg 0.5-1 mg, Intravenous, Administer over 1 Minutes, EVERY 4 MIN PRN, sedation, If inadequate response may repeat 0.5 mg IV slowly Q 4 minutes PRN sedation until desired response., Starting on Tue05/23/13 at 0905, Doses can be exceeded under direct oversight of patient by physician., IR Intra-procedure documented in this encounter Active and Recently Administered Medications Times are shown in CDT. Scheduled Medication Order 05/21/2013 05/22/2013 05/23/2013 alteplase (CATHFLO ACTIVASE) injection 4 mg (COMPLETED) 904 (Given by Other - Provider: Jovana Miller RN) 4 mg, Intracatheter, ONCE, On Tue05/23/13 at 0915, For 1 dose PRN Medication Order 05/21/2013 05/22/2013 05/23/2013 fentaNYL (SUBLIMAZE) injection 25-50 mcg (CANCELED) 923 (Given - Provider: Jovana Miller RN) 25-50 mcg, Intravenous, EVERY 5 MIN PRN, severe pain (7-10), If inadequate response may repeat 25 mcg IV slowly Q 5 min PRN severe pain, Administer over 2 Minutes, Starting on Tue05/23/13 at 0905, Doses can be exceeded under direct oversight of patient by physician., IR Intra-procedure midazolam (VERSED) injection 0.5-1 mg (CANCELED) 924 (Given - Provider: Jovana Miller RN) 0.5-1 mg, Intravenous, Administer over 1 Minutes, EVERY 4 MIN PRN, sedation, If inadequate response may repeat 0.5 mg IV slowly Q 4 minutes PRN sedation until desired response., Starting on Tue05/23/13 at 0905, Doses can be exceeded under dir ect oversight of patient by physician., IR Intra-procedure documented in this encounter Care Teams Hoof Trimmer Relationship Specialty Start Date End Date Preet Huff PCP - General 06/24/11 documented as of this encounter
--- OUTSIDE RECORDS SUMMARY | 2022-09-01 20:24 | XMS_ITS | Encounter Summary ---
:1965 Author Organization [facility] Address [address] [place] [address] Care Team Providers Name Role Phone Huff, Preet Hans Primary Care Provider Encounter Details Date Type Department Care Team Description 08/08/2012 Surgery [facility] Michele Fuentes LUMBAR TUNNEL CATH Ariane Coleman MD PLACEMENT. Services [facility] RADIOLOGIC [address] [place] [phone] [place], [place] [address] (Wo rk) Surgery Details Date/Time Status Location OR Service Patient Case Case Traum a Class Class Type Case? 08/08/12 2:00 Posted OR OR M Interventional Same Day PM 51 Radiology Surgery Panel 1 Procedure LRB Anes Op Region Wound Class Commen ts LUMBAR TUNNEL CATH N/A General Neck I-Clean LUMBAR TUNNEL CATH PLACEMENT. PLACEMENT. Surgeon Surgeon Role Service Panel Michele Fuentes MD Primary Interventional Radiol ogy 1 Special Needs Pt has an Aunt as legal guardian documented in this encounter Social History Tobacco Use Types Packs/Day Years Used Date Smoking Tobacco: Never Smokeless Tobacco: Never Alcohol Use Standard Drinks/Week Comments No 0 (1 standard drink = 0.6 oz pure alcoho l) Sex Assigned at Date Recorded Not on file documented as of this encounter Last Filed Vital Signs Vital Sign Reading Time Taken Comments Blood Pressure 143/77 08/08/2012 10:51 AM CDT Pulse 67 08/08/2012 10:51 AM CDT Temperature 36.9 ??C (98.4 ??F) 08/08/2012 10:51 AM CDT Respiratory Rate 18 08/08/2012 10:51 AM CDT Oxygen Saturation 100% 08/08/2012 10:51 AM CDT Inhaled Oxygen Concentration - - Weight - - Height - - Body Mass Index - - documented in this encounter Discharge Summaries Alvaro Cyr MD - 08/10/2012 10:30 AM CDT DISCHARGE DIAGNOSES: 1. Thrombosed right thigh dialysis graft. 2. End-stage renal disease. 3. Status post revision of right thigh dialysis graft from cadaver graft to PTFE graft by Dr. Saravia. 4. Hypertension. 5. Anemia. 6. Diabetes mellitus type 2. 7. Obstructive sleep apnea. 8. Blindness. HOSPITAL COURSE: Julio Cesar Sandhu is a 47-year-old -[place] male with end- stage renal disease coming as a result of diabetes mellitus. He has had frequent trips to the hospital related to complications of vascular access recently. He had an existing right thigh graft with a cadaver vessel. This clotted on 07/31 and was declotted in Interventional Radiology. It clotted before he could get to dialysis once again and therefore it was declotted the following day, 08/01 and a stent was deployed and Plavix was added to his medicines. It clotted once again after he dialyzed, and therefore he was declotted on 08/03 and was treated with heparin and then Coumadin. On 08/08, the day of admission, he wasclotted once again. As it was thought that this graft needed revision, he had placement of a temporary dialysis catheter. 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 On 08/09, Dr. Saravia did revise the right thigh graft, removing the cadaver vessel and placing a PTFEgraft. The stent was also removed. On postoperative day #1, there is only a small amount of swelling in the right thigh, the graft is patent, the incisions are clean, dry and intact and his pain is controlled. Given that the stent has been removed, Dr. Saravia feels that the Plavix is no longer needed, but he would like to continue with warfarin to assure patency of the graft. DISCHARGE MEDICATIONS: 1. Nephrocaps 1 daily. 2. Warfarin 2.5 mg daily. 3. Metoprolol 100 mg twice a day. 4. Dulcolax 5 mg tablets 2 twice a day. 5. Calcium acetate 667 mg 2-3 with each meal and 1 with snacks. 6. Lactulose 40 grams by mouth daily. 7. Lisinopril 40 mg daily. 8. Simvastatin 40 mg daily. His Plavix will be discontinued. We will send him home with some pain medications for his 2 procedures. It will be hydrocodone with acetaminophen 5/325 one tablet every 6 hours as needed for pain, #20. His INRs will be monitored in the [facility]. Dr. Carballo will continue to be his senior software qa analyst there and will manage the warfarin. Revised account 08/11/2012 verna ALVARO CYR MD MT: #[id number] Name: JULIO CESAR SANDHU Account: [id number] : 1965 Admit Date: Discharge Date: 08/10/2012 Document: [id number] documented in this encounter Discharge Instructions Discharge InstructionsSchSanty mayson Carlos - 08/10/2012 2:28 PM CDT [facility] Arterial Bypass Surgery Discharge Instructions The surgeon who performed your surgery is: Someone should drive you home and stay with you for about a week. You may feel very tired after thissurgery. You will slowly get your energy back over the next few weeks. Incision care ? -You may have bruising, hardening and numbness around your incisions. This should improve in the next few weeks. If it gets worse, call the clinic. ? -Leg swelling is common after this surgery. If you have leg swelling, you must rest with your legsraised higher than your heart. Propping your legs up on a stool or sitting in a recliner is not enough. You will need to lie in bed with two or three pillows under your legs. - For the first few weeks, you will need to do this very often to manage the swelling. - After the first few weeks, you will only need to put your legs up for 20 to 30 minutes three to four times a day. Do this until the swelling stops. - If you raise your legs for more than two hours and the swelling does not improve, call the clinic. ? -You may shower two to three days after your surgery. Pat the incision to dry it. You do not need to cover it with a bandage unless it is draining. ? I-f you need to use a bandage, avoid taping it to the skin. It is best to wrap the leg with gauze.Don???t wrap too tightly--it should be just tight enough to hold the gauze in place. ? -Mcgrann may hold your incision closed. You might also have some stitches. We will remove these two weeks after surgery. At that time we may place strips of white tape (Steri-Strips) over your incisions. These will curl up after 5 to 7 days, and then you may remove them. ? -If you have an incision in the groin area (between your trunk and leg), tuck a gauze pad in the fold of the skin. This will keep the skin dry and aid healing. ? -A soft, fluid-filled bulge (seroma) may appear near an incision. This is rare. It may go away on its own, or it may need to be drained in the clinic. Call if you have questions. Activity ?- Walking is important. You should take three to four short walks a day. Slowly increase your distance as you are able. You can climb stairs when you feel strong enough. ? -No heavy lifting or hard activity (running, biking or weight lifting) until after you see your doctor. Your doctor will discuss these at your follow-up visit. ? -No driving until two weeks after surgery. You must feel strong enough to drive safely. -Do not drive if you are taking narcotic pain pills. ?- You may return to work when you feel ready. Your doctor will discuss this at your follow-up visit. Diet and medicines ? -From now on, you will need to eat a diet that is low in fat and cholesterol. -You may need to eat several small meals a day until your appetite returns. ? -Take all your medicines unless your doctor tells you not to. ? -If you are taking Coumadin (warfarin), you must have regular blood tests (INR). ? -You may use stool softeners (Colace or Senokot) as needed for constipation (hard, dry stools). ? -For mild pain and other symptoms: Take 2 tablets of Advil (ibuprofen) or Tylenol (acetaminophen) three times a day. Take it with food. Do this for one week. ? -For severe pain, take: . -You may not drive or drink alcohol while taking this medicine. If you need to have this refilled, please call your pharmacy during business hours. The pharmacy will call us for approval. Call us if you have any of these symptoms (see numbers below): ? Extreme pain in your leg. ? Chills, or a fever above 101??F (38.3??C) taken under the tongue. ? Drainage, redness or odor around an incision. ? Numbness, tingling or coolness in a leg or foot. ? Trouble feeling a pulse in your leg or foot. ? Swelling in your legs that does not decrease after resting with your legs above your heart. Follow-up ? -See your surgeon 10 to 14 days after surgery. Set up this visit as soon as you get home. ? -In the first year after surgery, you may need regular ultrasound tests to look at your graft. -You may have these every three to six months. ? -After the first year, you will need to have an ultrasound every six to 12 months. Your surgeon will tell you how often to have this. We will send you a reminder each time by mail. In the first year after surgery, you may need an antibiotic (germ-killing medicine) before certain procedures. Call us before you have dental work, surgery or a colonoscopy. Other: Questions or concerns? [facility]: [phone] ([facility]) documented in this encounter Medications at Time of Discharge Medication Sig Dispensed Refills Start Date End Date b iolxnme-J-vxtag acid Take 1 capsule by 0 03/04/2016 [...] documented as of this encounter Progress Notes Michele Fuentes MD - 08/29/2012 12:35 AM CST BORER Michele Fuentes MD - 08/15/2012 9:38 AM CST BORER Josue Byrnes RN - 08/10/2012 2:21 PM CDT POTASSIUM * 08/10/2012 Value: Unsatisfactory specimen - hemolyzed NOTIFIED DIALYSIS AT 0840 HGB 9.7 08/10/2012 180 lbs 15.96 oz Patient dialyzed for 3.5 hours via lumbar cath. against a K-2 bath with a net fluid removal of 2.3 Liters. Patient was seen by Dr. cyr during the treatment. Total heparin received during treatment:no units. Meds given during the treatment:epo,hectorol Complications:none Hepatitis B status:hep b antigen neg 08/04/12 Procedure and ESRD education reviewed with the patient. Pre-run report received from mirlande ruth r.n., post run report given to alfred mendiola student nurse. See flowsheet in EPIC for run details. Access worked great at the beginning of treatment. Arterial pressures went up during the treatment and I reduced his flow rate slowly throughout treatment. Near the end of treatment I reversed lines and the venous pressure was then high and I could only run him at 300 blood flow rate. The last 5 minutes of run I changed his dressing and had him turn slightly to his left side. His pressures promptly went down. Mirlande Ruth - 08/10/2012 2:13 PM CDT Pt getting ready to go home via van transport. Successful dialysis run today. Isis Stanley, LINDA - 08/10/2012 11:59 AM CDT Discussed coumadin dosing with Dr. Cyr. Patient will have INR's drawn at dialysis and coumadin dosed by nephrology. Next dialysis run is set for Tuesday. Dinora Anders LSW - 08/10/2012 10:33 AM CDT SW: D: Per CC pt will be DC to home today. Pt admitted for vascular surgery procedure. I: SULY reviewed old chart to find transport company name/number that pt uses and is covered by his MA. SW called [facility] -they are able to pick pt up at 3PM today and take him home. SULY spoke with pt's mother Thelma and she is able to have her son come home today. P: SULY will update pt's nurse that transport is arranged. Alvaro Cyr MD - 08/10/2012 8:41 AM CDT Inpatient Dialysis Progress Note Assessment and Plan: 1. ESKD. Stable run. Not sure weight really 81 kg. EDW 75. SBP 160-180. Not sure he has 6 kg on but will try 3-4 kg as BP tolerates. Green tube hemolyzed but K yesterday 5.1 so will run on K2. 2. Anemia. Better after transfusion. On EPO. 3. HTN. BP high. No BP meds yet this AM. 4. FEN. See #1 above. Plan: OK for home today. Warfarin with goal INR 2.0 Will send with warfarin 2.5 mg daily. INRs will be done in dialysis and Dr. Carballo will manage. Discussed with Dr. Saravia. No need for Plavix. Interval History: Pain in flank and leg subsiding (post procedures). Eating ok. Denies n/v/f/c. No dizziness/lightheadedness/cramping. No abd pain/cp/sob. Dialysis Parameters: Wt Readings from Last 4 Encounters: 08/10/12 82.1 kg (181 lb) 08/10/12 82.1 kg (181 lb) 08/10/12 82.1 kg (181 lb) 08/05/12 71.7 kg (158 lb 1.1 oz) I/O last 3 completed shifts: In: 1300 [I.V.:1300] Out: 100 [Blood:100] BP Readings from Last 3 Encounters: 08/10/12 164/86 08/10/12 164/86 08/09/12 146/64 Routine, ONE TIME, Starting today For 1 Occurrences Weight Loss (kg): 4 Dialysis Temp: 36.5 ??C Access Device: CVC Access Site: Right Lumbar Dialyzer: Revaclear Dialysis Bath: K 2 Blood Flow Rate (mL/min): 375 Total Treatment Time (hrs): 3.5 Heparin: No Medications and Allergies: Reviewed in EPIC ??? sodium chloride 0.9 % 250 mL Hemodialysis Machine Once ??? epoetin mauricio (EPOGEN,PROCRIT) inj ESRD 10,000 Units Intravenous Once ??? DISCONTD: doxercalciferol 1.5 mcg Intravenous See Admin Instructions ??? ceFAZolin 2 g Intravenous Pre-Op/Pre-procedure x 1 dose ??? sodium chloride (PF) 3 mL Intravenous Q8H ??? HYDROmorphone Intravenous PIPE SMOKER MACHINE OPERATOR ??? senna-docusate 1-2 tablet Oral BID ??? dextrose 25 mL Intravenous Once ??? midazolam 1 mg Intravenous Once ??? warfarin 7.5 mg Oral ONCE at 18:00 ??? warfarin-No DOSE today 1 each Does not apply no dose today (warfarin) ??? doxercalciferol 1.5 mcg Intravenous See Admin Instructions ??? lisinopril 40 mg Oral Daily ??? metoprolol 100 mg Oral BID ??? B [id number] acid 1 capsule Oral Daily ??? calcium acetate 1,334 mg Oral TID w/meals ??? simvastatin 40 mg Oral QPM ??? DISCONTD: heparin (porcine) ??? DISCONTD: heparin (Porcine) Lock Flush - MEDICATION INSTRUCTIONS -, heparin (porcine), heparin, sodium chloride (PF), sodium chloride (PF),naloxone, phenol-menthol, HYDROmorphone, HYDROcodone- acetaminophen, ondansetron, ondansetron, ondansetron, Warfarin Therapy Reminder Order, DISCONTD: ondansetron, DISCONTD: ondansetron, DISCONTD: HYDROmorphone, DISCONTD: heparin 2,500 units in 250 mL 0.9% NaCl, DISCONTD: sodium chloride 0.9% (bottle),DISCONTD: midazolam, - MEDICATION INSTRUCTIONS - Allergies Allergen Reactions ??? Aspirin (Dihydroxyaluminum Aminoacetate) GI Disturbance GI bleeding Labs: BMP Lab 08/10/12 0810 08/10/12 0620 08/09/12 1940 08/09/12 0556 08/08/12 1255 08/05/12 0820 08/03/12 1305 NA Unsatisfactory specimen - hemolyzed NOTIFIED DIALYSIS AT 0840 -- -- -- 139 136 135 POTASSIUM Unsatisfactory specimen - hemolyzed NOTIFIED DIALYSIS AT 0840 -- -- 5.1 5.9* 3.9 -- CHLORIDE Unsatisfactory specimen - hemolyzed NOTIFIED DIALYSIS AT 0840 -- -- -- 98 95 98 JON Unsatisfactory specimen - hemolyzed NOTIFIED DIALYSIS AT 0840 -- -- -- 9.5 8.4* 8.9 CO2 Unsatisfactory specimen - hemolyzed NOTIFIED DIALYSIS AT 0840 -- -- -- 27 29 19* BUN Unsatisfactory specimen - hemolyzed NOTIFIED DIALYSIS AT 0840 -- -- -- 77* 54* 124* CR Unsatisfactory specimen - hemolyzed NOTIFIED DIALYSIS AT 0840 -- -- -- 11.87* 8.18* 17.64* GLC Unsatisfactory specimen - hemolyzed NOTIFIED DIALYSIS AT 0840 109* 111* -- 74 -- -- CBC Lab 08/10/12 0810 08/09/12 0556 08/08/12 1255 08/05/12 0820 08/04/12 0658 WBC -- -- 4.1 5.2 -- HGB 9.7* 9.3* 7.7* 8.0* -- HCT -- -- 25.0* 25.4* -- MCV -- -- 88 86 -- PLT -- -- 145* 105* 91* No results found for this basename: AST, ALT, GGT, ALKPHOS, bilitotal, biliconj, bilidirect, bilirubinindirect, vu Physical Exam: Vitals were reviewed in [facility] Wt Readings from Last 3 Encounters: 08/10/12 82.1 kg (181 lb) 08/10/12 82.1 kg (181 lb) 08/10/12 82.1 kg (181 lb) Intake/Output Summary (Last 24 hours) at 08/10/12 0841 Last data filed at 08/09/12 1354 Gross per 24 hour Intake 1300 ml Output 100 ml Net 1200 ml GENERAL APPEARANCE: pleasant, no distress, sleepy HEENT: Eyes/ears/nose grossly normal, neck supple RESP: lungs clear to auscultation with good efforts, no crackles, rhonchi or wheezes CV: regular rate and rhythm, normal S1 S2, no murmur, click or rub ABDOMEN: soft, nontender, bowel sounds normal EXTREMITIES/SKIN: tr edema, right thigh graft patent, small amount swelling Pt seen on dialysis. Stable run. Good BFR. Attestation: I have reviewed today's vital signs, notes, medications, labs and imaging. ALVARO YCR MD [facility] - Nephrology [phone] Rober Saravia MD - 08/10/2012 8:29 AM CDT Vascular Surgery Progress Note: POD #1 S: On dialysis via translumbar catheter. Sore at incision site. O: Vitals: BP Min: 114/65 Max: 169/87 Temp Av.4 ??F (36.9 ??C) Min: 97.5 ??F (36.4 ??C) Max: 100.4 ??F (38 ??C) Physical Exam: Right groin wd=A without swelling. Excellent graft bruit. CMS=normal INR=2.25 Assessment/Plan:Graft working well. Will need about 3 weeks to mature. Wound keep on low dose coumadin with INR goal=2.0 with history of recurrent graft clotting. Wm. Rani HARPER Sabrina Alberto RN - 08/09/2012 6:47 PM CDT Pt alert and oriented, very cooperative with nurses. Asking to drink water, very thirsty, BG = 64 ptis clear liquid diet, given [place] juice given, dines pain, BS present, right groin dialysis sit dryand intact. Family at bed side. Will check BG From lab back 111. AKT Sabrina Alberto RN - 08/09/2012 5:40 PM CDT Pt transfer from PACU 1740 pt alert to self sleepy , dialysis port right groin and thigh dry and intact. oriented to room and sitter at bedside . Pt Dines pain. Will continue to monitor. Muna Justin RN - 08/09/2012 8:51 AM CDT Observation status reviewed with pt and brochure given to him. AKT Buffy Montiel RN - 08/09/2012 7:06 AM CDT Slept intermittently. NPO, VSS. 98.6 offers no C/O. Right tunnel cath drsg with small spot of old blood, otherwise intact. AKT Buffy Montiel RN - 08/08/2012 9:59 PM CDT Pt arrived from Dialysis via W/C assisted into bed. Immediately requesting food and Lots of it wanted 4-5 cheeseburgers. Offered sandwich tray, then stated he wanted 5 of them. Ate 2 trays of food and is requesting more. Diet noted. VSS. Stacy Del Rio RN - 08/08/2012 8:51 PM CDT DIALYSIS PROCEDURE NOTE POTASSIUM 5.9 08/08/2012 HGB 7.7 08/08/2012 Pt dialyzed for 3.5 hrs via Rt lumbar catheter, BFR 350-400 with a net volume removal of 2.8 L on K2, then 3 bath. Heparin given on run: 0 units Complications: in and out of bigeminy heart rhythm , asymptomatic Medications given: Epogen, Hectorol Pt seen by Dr. Cyr during treatment EDW 75 kg, post run weight ?? Kg, no weight done prior to dialysis Pt received education on procedure and ESRD while on dialysis. Post run report given to Katja MCKEON on Care Suites See Epic dialysis flowsheet for details of dialysis run and post run report hand off. . Post run pt assessment: Lungs: clear Cardiac: regular post run, did have runs of asymptomatic bigeminy while on dialysis LOC: alert and oriented GI/Abd: + BS, abd soft Access: Rt lumbar catheter dressing dry and intact, vol specific heparin instilled post run Edema: none Left via wheelchair with aide back to Care Suites Rober Saravia MD - 08/08/2012 7:18 PM CDT Vascular Surgery Progress Note S:No complaints. O: Vitals: BP Min: 135/81 Max: 199/87 Temp Av.5 ??F (36.4 ??C) Min: 96.8 ??F (36 ??C) Max: 98.4 ??F (36.9 ??C) Pulse Av Min: 67 Max: 67 Physical Exam: Right thigh cadaveric SFA graft has reclotted again. Old fistulograms reviewed with no obvious problem noted. Assessment/Plan:Dialysis via tunneled catheter tonight. Plan new Right groin PTFE access tomorrow. . Rani HARPER Alvaro Cyr MD - 08/08/2012 5:27 PM CDT Inpatient Dialysis Progress Note Assessment and Plan: 1. ESKD. Biggest problem is access as outlined above. Now has working lumbar catheter. This should be used as short a time as possible. Thigh graft access revision tomorrow. 2. Anemia. Hgb has fallen from 11.0 as outpt 07/25 (dialysis) to 8.0 08/05, to 7.7 08/08. Some of the fall is related to losses from the many procedures. Need to be mindful of possible occult bleeding from he recently started anticoagulation. Will continue EPO at 10,000 units. Also will need RBC transf usion to prepare for surgery tomorrow. Unclear if will still need anticoagulation now. Will need to review with Dr. Saravia. 3. HTN. BP high without meds as npo. Will re-evaluate when on his meds. 4. FEN. K 5.9 on K2 bath. Not on pharm RX of DM. Interval History: 47 yo M with ESRD. This is his [facility] trip to [facility] this week for access difficulties. 07/31 declot right thigh graft 08/01 declot and stent right thigh graft, plavix added 08/03 declot + heparin and coumadin 08/08 clotted again. Placement of translumbar catheter to preserve the femoral veins. Plan for revision of thigh graft to PTFE tomorrow by Dr. Saravia Feels OK. No chest pain, SOB, N/V/D, black stools. Tired from long day. PMH: ESRD due to DM Htn SHIRLEY Blindness Denies n/v/f/c. No dizziness/lightheadedness/cramping. No abd pain/cp/sob. Dialysis Parameters: Wt Readings from Last 4 Encounters: 08/05/12 71.7 kg (158 lb 1.1 oz) 07/31/12 74.844 kg (165 lb) 05/04/12 71.5 kg (157 lb 10.1 oz) 05/04/12 71.5 kg (157 lb 10.1 oz) BP Readings from Last 3 Encounters: 08/08/12 177/87 08/08/12 177/87 08/05/12 106/56 Routine, ONE TIME, Starting today For 1 Occurrences Weight Loss (kg): 3 Dialysis Temp: 36.5 ??C Access Device: CVC Access Site: right lumbar Dialyzer: Revaclear Dialysis Bath: K 2 Blood Flow Rate (mL/min): 400 Total Treatment Time (hrs): 3.5 Heparin: no Medications and Allergies: Reviewed in [facility] ??? heparin (porcine) ??? heparin (Porcine) Lock Flush ??? sodium chloride 0.9 % 250 mL Hemodialysis Machine Once ??? epoetin mauricio (EPOGEN,PROCRIT) inj ESRD 10,000 Units Intravenous Once ??? doxercalciferol 1.5 mcg Intravenous See Admin Instructions ??? DISCONTD: sodium chloride (PF) 3 mL Intravenous Q8H ??? DISCONTD: ceFAZolin 1 g Intravenous Pre-Op/Pre-procedure x 1 dose heparin (porcine), heparin, - MEDICATION INSTRUCTIONS -, heparin, lidocaine (PF), iopamidol, heparin, DISCONTD: sodium chloride (PF), DISCONTD: - MEDICATION INSTRUCTIONS - Allergies Allergen Reactions ??? Aspirin (Dihydroxyaluminum Aminoacetate) GI Disturbance GI bleeding Labs: BMP Lab 08/08/12 1255 08/05/12 0820 08/04/12 0800 08/03/12 1305 NA 139 136 -- 135 POTASSIUM 5.9* 3.9 4.0 5.6* CHLORIDE 98 95 -- 98 JON 9.5 8.4* -- 8.9 CO2 27 29 -- 19* BUN 77* 54* -- 124* CR 11.87* 8.18* -- 17.64* GLC 74 132* -- 73 CBC Lab 08/08/12 1255 08/05/12 0820 08/04/12 0800 08/04/12 0658 WBC 4.1 5.2 -- -- HGB 7.7* 8.0* 8.0* -- HCT 25.0* 25.4* -- -- MCV 88 86 -- -- PLT 145* 105* -- 91* No results found for this basename: AST, ALT, GGT, ALKPHOS, bilitotal, biliconj, bilidirect, bilirubinindirect, vu Physical Exam: Vitals were reviewed in [facility] Wt Readings from Last 3 Encounters: 08/05/12 71.7 kg (158 lb 1.1 oz) 07/31/12 74.844 kg (165 lb) 05/04/12 71.5 kg (157 lb 10.1 oz) Intake/Output Summary (Last 24 hours) at 08/08/12 1728 Last data filed at 08/08/12 1615 Gross per 24 hour Intake 400 ml Output 10 ml Net 390 ml GENERAL APPEARANCE: pleasant, no distress, a [...] vital signs, notes, medications, labs and imaging. ALVARO CYR MD [facility] - Nephrology [phone] Stacy Del Rio, LINDA - 08/08/2012 5:21 PM CDT PRE PROCEDURE DIALYSIS NOTE Pre treatment report received from Criss Booth milling supervisorglue wheel operator machine safety checks Dialyzer # [id number] Tubing # [id number] All lines secured, saline line double clamped, venous and arterial parameters set and air detector engaged and time out taken Patient Assessment Access: Lumbar catheter patent placed prior to run in OR Lungs: clear Cardiac: regular Edema: none LOC: alert, oriented to place and person GI/Abdomen: + BS, hungry Hepatitis B status: Antibodies not immune (5) 08/04/12, Antigen negative 08/04/12 Jonn Lorenz RN - 08/08/2012 1:19 PM CDT Unable to do complete assessment due to pt not being able to comprehend questions. Pt does not know when medications were last taken. documented in this encounter H&P Notes Michele Fuentes MD - 08/08/2012 8:54 AM CDT documented in this encounter Nursing Notes Criss Moreno RN - 08/09/2012 4:48 PM CDT Awakens easily. Calm and cooperative. Speech clear and coherent. Oriented x 4. Criss Moreno RN - 08/09/2012 3:51 PM CDT Station [address] software team leader notified of need for sitter up on floor. Patient remains calm after Versed and is intermittently falling asleep. Criss Moreno RN - 08/09/2012 3:43 PM CDT Conversation suddenly became nonsensical when attempting to get a repeat blood sugar. Delirous and unable to calm. Required assistance of multiple staff to hold down after attempting to get off cart. Hydromorphone 0.4mg IV given x 1 without any decrease in agitation. Repeat bgm 106 after previous 1/2 amp of D50. MDA notified. Versed 2mg. IV given with finally calming down after 5 minutes. BLE soft wrist restraints applied. Calmer now but continues to talk about not be able to pay his bill and other non-sensical conversation. Criss Moreno RN - 08/08/2012 5:00 PM CDT Report given to block operator. BGM 70 in PACU. 240cc of apple and orange juice given. POC to dialysis after PACU. Claudia Pace RN - 08/08/2012 1:51 PM CDT Pt came to pre-op in preparation for catheter placement. There is some question about pt needing a CT prior to procedure. Awaiting further orders documented in this encounter OR Notes OR Anesthesia - Michele Fuentes MD - 08/14/2012 11:09 AM CST BORER OR Anesthesia - Michele Fuentes MD - 08/14/2012 11:09 AM CST BORER documented in this encounter Miscellaneous Notes Initial Assessments - Michele Fuentes MD - 08/11/2012 2:23 PM CDT BORER Initial Assessments - Michele Fuentes MD - 08/11/2012 2:23 PM CDT BORER Plan of Care - Mirlande Ruth - 08/10/2012 3:28 PM CDT At discharge I called Thelma to discuss discharge instructions. She verbalized good understanding ofall the instructions and particularly pt's medication changes. Pt left unit in good spirits via wheelchair with fence post driver. Plan of Care - Rose Marie Johnson RN - 08/10/2012 5:07 AM CDT Problem: IP GENERAL POC-ADULT,OB,BEHAVIORAL FVCPM Goal: Individualization/Patient-Specific Goal (Adult,OB,Behavioral The patient and/or their customer account representative will achieve their patient-specific goals related to the plan of care. The patient-specific goals include: INSERT CATHETER VENOUS TRANSLUMBAR - LUMBAR TUNNEL CATH PLACEMENT on 08/09/12 Outcome: No Change VSS, running hypertensive, denies pain. Was A&Ox2 at start of shift, now A&Ox4. Up SBA to bedside commode. Inc sites CDI. Extremities cool, pulses and sensation present. Tolerating clears, voids small amts d/t hemodialysis. Provider Notification - Sierra Gurrola RPH - 08/09/2012 10:30 PM CDT TORTemitope Taylor PA-C @ 22:30 on 08/09--No warfarin today. Give warfarin 7.5 mg tomorrow at 18:00 on 08/10/12. Emma Taylor PA-C will review INR in a.m. And readdress warfarin if needed. He is aware INR = 2.26 today. 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 PROCEDURE: 1. Redo right groin profundus femoral cadaveric limb to common femoral vein 4x7 mm Propaten PTFE loop graft. 2. Excision of Viabahn stent within right common femoral vein with thrombectomy. 3. Arterial limb embolectomy (D-10). SURGEON: Rober Saravia MD 1ST OPTICAL ADVISOR: EMMA TAYLOR PA-C ANESTHESIA: General LMA. PREOPERATIVE MEDICATIONS: Ancef 2 grams IV. INDICATIONS: Julio Cesar Sandhu is a 47-year-old patient on chronic hemodialysis with no upper extremity access had placement of a right groin loop profundus femoral to saphenofemoral junction cadaveric arterial graft several months ago. He has had 4 episodes repeated thrombosis over the last week. These have been opened by Interventional Radiology. They did place a Viabahn stent into the common femoral vein end of the cadaveric graft. However, this has re-occluded. Because of the reocclusion, it was felt that a redo operation was indicated. A translumbar dialysis catheter was placed to preserve the left groin as his only remaining access site and we are hoping to redo the right side with the PTFE graft. The patient comes to the operating today under informed consent. DESCRIPTION OF PROCEDURE: The patient induced under general anesthesia, LMA was placed without difficulty. The right groin area was prepped and draped in the usual fashion. VASCULAR EXPOSURE: A vertical incision made through the prior site. Dissection was carried down through excessive scar tissue to identify the arterial limb that was thrombosed. This was dissected down towards the profundus femoral artery to within approximately 1.5 cm. We then with some difficulty, identified the venous medial limb. This was dissected down to the junction of the saphenofemoral junction. With the very tedious dissection, we are identified the common femoral vein which was inflamed and scarred from the placement of the Viabahn stent. We identified this at the level of the inguinal ligament and we were able place a Silastic vessel loop. We identified the profundus femoral and superficial femoral veins. However, the scar tissue, these were not completely dissected free. REMOVAL OF VIABAHN STENT-THROMBECTOMY: 3000 units of intravenous heparin were given. We tightened the vessel loops around the common femoral vein and a vascular clamp was placed over this, the superficial femoral, profundus femoral vein. We then transected the cadaveric graft and extended this onto the common femoral vein with a Carpenter scissors. We identified the Viabahn stent. With release of the vessel loops we were able to remove the Viabahn stent in its entirety. There was residual wall thrombus and a thrombectomy was performed. We were able to pass a 6 mm dilator up the common femoral vein. Heparinized saline solution was injected. We had good bleeding from the profundus femoral and superficial femoral veins. We removed the vessels and placed a vascular clamp. We replaced a vascular clamp over the graft and allowed reperfusion of the venous system. THROMBECTOMY: We initially transected the graft 4 cm from the anastomosis. I did pass the Farrah catheter and was unable to obtain good inflow. We therefore tediously dissected free the common femoral-superficial femoral artery. The superficial femoral artery was skeletonized and proximal distal Silastic vessel loops were placed, preserving the side branches. I placed a vascular clamp closer to the anastomosis of the cadaveric graft and transected this. However, upon doing so, we did identify the arterial plug which had not been able to be removed further distally. We now had excellent arterial inflow and I felt that this could be the site for our inflow avoiding anastomosis, superficial femoral, which could affect the blood flow to his leg. We therefore slightly spatulated the cadaveric graft. We selected a 4 x 7 mm Propaten PTFE thick walled graft. This was trimmed slightly obliquely and the 4 mm segment sewn end-to-end to the cadaveric graft with running 6-0 Prolene suture. With release of our clamp we had a very strong pulse and heparinized saline solution was injected and a clamp was applied to the PTFE graft. The incision was then made in the mid thigh beyond the original cadaveric loop. Electrocautery was used to create a pocket. With the use of a Ryann wick tunnel, we then brought our graft through with the arterial side located laterally in a gentle curve up back into the groin inc ision. We applied vascular clamp to the common femoral vein and the profundus femoral-superficial femoral veins. We extended our venotomy onto the common femoral vein to ensure there was no stenosis. The wall of the vein was only minimal irritated from the stent. We spatulated the 7 mm portion of the PTFE graft and this was sewn in end-to-side fashion with the heel being placed on the old cadaveric artery and the toe on the common femoral vein with running 6-0 Prolene suture. The wall vein was thickened but had a good luminal diameter. The graft was flushed and blood flow was allowed to go up the common femoral vein. We had a good strong pulse and excellent hemostasis. A small amount of Surgicel was placed from the suture line. The wounds were closed in layers with interrupted 2-0 and 3-0 Vicryl suture, and the skin was closedwith 4-0 Monocryl in subcuticular fashion. Surgical adhesive glue was placed over the site to prevent contamination. The patient tolerated the procedure well. Operative time was 3 hours and very difficult procedure due to the extensive scar tissue from the cadaveric graft and also from the Viabahn stent. There was noischemia to his foot noted following the procedure. The arterial limb of the graft is located laterally. ESTIMATED BLOOD LOSS: 100 cc. ROBER SARAVIA MD MT: [id number] Name: JULIO CESAR SANDHU MRN: [id number] Account: [id number] : 1965 Procedure Date: 08/09/2012 Document: [id number] Brief Op Note - mEma Taylor PA-C - 08/09/2012 2:[address] [facility] Vascular Surgery Brief Operative Note Pre-operative diagnosis: RENAL FAILURE Post-operative diagnosis Same, multiple failed dialysis access Procedure: Redo Right femoral access with PTFE loop. Thrombectomy right profunda artery Removal of viabahn femoral vein stent Surgeon: Rani Assistants(s): Emma Taylor PA-C Anesthesia: General Estimated blood loss: 100cc Drains: None Specimens: None Implants: 4x7mm PTFE 50cm greaft Findings: Complications: None Condition: Stable documented in this encounter Plan of Treatment Not on filedocumented as of this encounter Procedures Procedure Name Priority Date/Time Associated Comments Diagnosis RENAL PANEL Routine 08/10/2012 8:10 AM Results f or this CDT procedure are i n the results section. HEMOGLOBIN Routine 08/10/2012 8:10 AM Results f or this CDT procedure are i n the results section. INR Routine 08/10/2012 6:20 AM Results f or this CDT procedure are i n the results section. GLUCOSE Timed 08/10/2012 6:20 AM Results f or this CDT procedure are i n the results section. GLUCOSE BY METER Routine 08/09/2012 7:40 PM Resul ts for this CDT procedure are i n the results section. GLUCOSE STAT 08/09/2012 7:40 PM Results f or this CDT procedure are i n the results section. GLUCOSE BY METER Routine 08/09/2012 7:16 PM Resul ts for this CDT procedure are i n the results section. GLUCOSE BY METER Routine 08/09/2012 7:02 PM Resul ts for this CDT procedure are i n the results section. GLUCOSE BY METER Routine 08/09/2012 6:41 PM Resul ts for this CDT procedure are i n the results section. GLUCOSE BY METER Routine 08/09/2012 6:37 PM Resul ts for this CDT procedure are i n the results section. GLUCOSE BY METER Routine 08/09/2012 6:23 PM Resul ts for this CDT procedure are i n the results section. GLUCOSE BY METER Routine 08/09/2012 6:18 PM Resul ts for this CDT procedure are i n the results section. GLUCOSE BY METER Routine 08/09/2012 6:12 PM Resul ts for this CDT procedure are i n the results section. GLUCOSE BY METER Routine 08/09/2012 3:30 PM Resul ts for this CDT procedure are i n the results section. GLUCOSE BY METER Routine 08/09/2012 2:45 PM Resul ts for this CDT procedure are i n the results section. GLUCOSE BY METER Routine 08/09/2012 9:33 AM Resul ts for this CDT procedure are i n the results section. GLUCOSE BY METER Routine 08/09/2012 8:22 AM Resul ts for this CDT procedure are i n the results section. INR Routine 08/09/2012 5:56 AM Results f or this CDT procedure are i n the results section. POTASSIUM Routine 08/09/2012 5:56 AM Results f or this CDT procedure are i n the results section. HEMOGLOBIN Routine 08/09/2012 5:56 AM Results f or this CDT procedure are i n the results section. ABO/RH TYPE AND Routine 08/09/2012 5:36 AM Result s for this SCREEN CDT procedure are i n the results section. GLUCOSE BY METER Routine 08/08/2012 6:26 PM Resul ts for this CDT procedure are i n the results section. IR CVC TUNNEL Routine 08/08/2012 4:50 PM ESRF (end stage Resul ts for this PLACEMENT > 5 YRS OF CDT renal failure) (H) p rocedure are in AGE RIGHT the results section. GLUCOSE BY METER Routine 08/08/2012 4:35 PM Resul ts for this CDT procedure are i n the results section. HEMODIALYSIS SINGLE Routine 08/08/2012 4:10 PM TREATMENT SETUP CDT (SH/RH ONLY) BLOOD COMPONENT Routine 08/08/2012 3:08 PM Result s for this CDT procedure are i n the results section. BLOOD COMPONENT Routine 08/08/2012 3:08 PM Result s for this CDT procedure are i n the results section. ABO/RH TYPE AND Routine 08/08/2012 3:08 PM Result s for this SCREEN CDT procedure are i n the results section. INSERT CATHETER 08/08/2012 2:20 PM FAILED GRAFT VENOUS TRANSLUMBAR CDT Special Needs Pt has an Aunt as legal guar tabitha EKG 12-LEAD, TRACING ONLY Routine 08/08/2012 1:53 PM CDT Results for this procedure are i n the results section . INR STAT 08/08/2012 12:55 PM CDT Resu lts for this procedure are i n the results section . BASIC METABOLIC PANEL STAT 08/08/2012 12:55 PM CDT Results for this procedure are i n the results section . CBC WITH PLATELETS STAT 08/08/2012 12:55 PM CDT Results for this procedure are i n the results section . HIM ECG SCAN Routine 08/08/2012 documented in this encounter Results (ABNORMAL) Hemoglobin (08/10/2012 8:10 AM CDT) P athologist Signature Hemoglobin 9.7 (L) 13.3 - 17.7 [place] g/dL [facility] Specimen Anatomical Collection Method Collection Time Receive d Time (Source) Location / / Volume Laterality Blood specimen 08/10/2012 8:10 AM 012 8:26 (specimen) CDT AM CDT Alvaro Cyr MD LAB - BLOOD ORDERABLES Performing Organization Address City/State/ZIP Code Phon e Number M [facility] [address] [phone] [facility] Renal panel (08/10/2012 8:10 AM CDT) Component Value Ref Test Analysis Performed At [facility] gist Range Method Time Signature Sodium Unsatisfactory specimen - hemolyzed 133 - [facility] [address] [facility] mmol/L [facility] Potassium Unsatisfactory specimen - hemolyzed 3.4 - [facility] AT 0840 5.3 [facility] mmol/L [facility] Chloride Unsatisfactory specimen - hemolyzed 94 - 109 [facility] AT 0840 mmol/L [facility] Carbon Dioxide Unsatisfactory specimen - hemolyzed 20 - 32 [facility] AT 0840 mmol/L [facility] Anion Gap Unsatisfactory specimen - hemolyzed 6 - 17 [facility] AT 0840 mmol/L [facility] Glucose Unsatisfactory specimen - hemolyzed 60 - 99 [facility] AT 0840 mg/dL [facility] Urea Nitrogen Unsatisfactory specimen - hemolyzed 5 - 24 [facility] AT 0840 mg/dL [facility] Creatinine Unsatisfactory specimen - hemolyzed 0.66 - [facility] AT 0840 [facility].25 [facility]dL [facility] GFR Estimate Unsatisfactory specimen - hemolyzed >60 [facility] AT 0840 mL/min/1 [facility] .7m2 [facility] GFR Estimate Unsatisfactory specimen - hemolyzed >60 [facility] If Black NOTIFIED DIALYS[facility] AT 0840 mL/min/1 [place] [id number] [facility] Calcium Unsatisfactory specimen - hemolyzed 8.5 - [facility] AT 0840 10.4 [facility] mg/dL [facility] Phosphorus Unsatisfactory specimen - hemolyzed 2.5 - [facility] AT 0840 4.5 [facility] mg/dL [facility] Albumin Unsatisfactory specimen - hemolyzed 3.9 - [facility] AT 0840 5.1 g/dL [facility] Specimen Anatomical Collection Method Collection Time Receive d Time (Source) Location / / Volume Laterality Blood specimen 08/10/2012 8:10 AM 012 8:26 (specimen) CDT AM CDT Alvaro Cyr MD LAB - BLOOD ORDERABLES Performing Organization Address City/State/ZIP Code Phon e Number M [facility] [address] [phone] [facility] (ABNORMAL) Glucose (08/10/2012 6:20 AM CDT) athologist Signature Glucose 109 (H) 60 - 99 [place] mg/dL [facility] Specimen Anatomical Collection Method Collection Time Receive d Time (Source) Location / / Volume Laterality Blood specimen 08/10/2012 6:20 AM 012 6:59 (specimen) CDT AM CDT Michele Fuentes MD LAB - BLOOD ORDERABLES Performing Organization Address City/State/ZIP Code Phon e Number M [facility] [address] [phone] [facility] (ABNORMAL) INR (08/10/2012 6:20 AM CDT) athologist Signature INR 2.21 (H) 0.86 - 1.14 [facility] Specimen Anatomical Collection Method Collection Time Receive d Time (Source) Location / / Volume Laterality Blood specimen 08/10/2012 6:20 AM 012 6:59 (specimen) CDT AM CDT Emma Lynch PA-C LAB - BLOOD ORDERABLES Performing Organization Address City/State/ZIP Code Phon e Number M [facility] [address] [phone] [facility] Glucose by meter (08/09/2012 7:40 PM CDT) athologist Signature Glucose 76 60 - 99 POINT OF CARE mg/dL TEST, GLUCOSE Specimen Anatomical Collection Method Collection Time Receive d Time (Source) Location / / Volume Laterality 08/09/2012 7:40 PM 2 8:20 CDT PM CDT Michele Fuentes MD LAB - BEAK[place] POCT Performing Organization Address City/State/ZIP Code Phon e Number [facility] POINT OF CARE TEST, GLUCOSE POINT OF CARE TEST, GLUCOSE (ABNORMAL) Glucose (08/09/2012 7:40 PM CDT) P athologist Signature Glucose 111 (H) 60 - 99 [place] mg/dL [facility] Specimen Anatomical Collection Method Collection Time Receive d Time (Source) Location / / Volume Laterality Blood specimen 08/09/2012 7:40 PM 012 7:46 (specimen) CDT PM CDT Michele Fuentes MD LAB - BLOOD ORDERABLES Performing Organization Address City/State/ZIP Code Phon e Number M [facility] [address] [place] [address] [facility] Glucose by meter (08/09/2012 7:16 PM CDT) P athologist Signature Glucose 86 60 - 99 POINT OF CARE mg/dL TEST, GLUCOSE Specimen Anatomical Collection Method Collection Time Receive d Time (Source) Location / / Volume Laterality 08/09/2012 7:16 PM 2 7:20 CDT PM CDT Michele Fuentes MD LAB - BEAKER POCT Performing Organization Address City/State/ZIP Code Phon e Number [facility] POINT OF CARE TEST, GLUCOSE POINT OF CARE TEST, GLUCOSE Glucose by meter (08/09/2012 7:02 PM CDT) P athologist Signature Glucose 69 60 - 99 POINT OF CARE mg/dL TEST, GLUCOSE Specimen Anatomical Collection Method Collection Time Receive d Time (Source) Location / / Volume Laterality 08/09/2012 7:02 PM 2 7:20 CDT PM CDT Michele Fuentes MD LAB - BEAKER POCT Performing Organization Address City/State/ZIP Code Phon e Number [facility] POINT OF CARE TEST, GLUCOSE POINT OF CARE TEST, GLUCOSE Glucose by meter (08/09/2012 6:41 PM CDT) P athologist Signature Glucose 69 60 - 99 POINT OF CARE mg/dL TEST, GLUCOSE Specimen Anatomical Collection Method Collection Time Receive d Time (Source) Location / / Volume Laterality 08/09/2012 6:41 PM 2 6:55 CDT PM CDT Michele Fuentes MD LAB - BEAKER POCT Performing Organization Address City/State/ZIP Code Phon e Number [facility] POINT OF CARE TEST, GLUCOSE POINT OF CARE TEST, GLUCOSE (ABNORMAL) Glucose by meter (08/09/2012 6:37 PM CDT) P athologist Signature Glucose 58 (L) 60 - 99 POINT OF CARE mg/dL TEST, GLUCOSE Specimen Anatomical Collection Method Collection Time Receive d Time (Source) Location / / Volume Laterality 08/09/2012 6:37 PM 2 6:45 CDT PM CDT Michele Fuentes MD LAB - [place] POCT Performing Organization Address City/State/ZIP Code Phon e Number [facility] POINT OF CARE TEST, GLUCOSE POINT OF CARE TEST, GLUCOSE Glucose by meter (08/09/2012 6:23 PM CDT) P athologist Signature Glucose 68 60 - 99 POINT OF CARE mg/dL TEST, GLUCOSE Specimen Anatomical Collection Method Collection Time Receive d Time (Source) Location / / Volume Laterality 08/09/2012 6:23 PM 2 6:25 CDT PM CDT Michele Fuentes MD LAB - [place]EXIANG POCT Performing Organization Address City/[facility]/ZIP Code Phon e Number FV POINT OF CARE TEST, GLUCOSE POINT OF CARE TEST, GLUCOSE Glucose by meter (08/09/2012 6:18 PM CDT) P athologist Signature Glucose 67 60 - 99 POINT OF CARE mg/dL TEST, GLUCOSE Specimen Anatomical Collection Method Collection Time Receive d Time (Source) Location / / Volume Laterality 08/09/2012 6:18 PM 2 6:20 CDT PM CDT Michele Fuentes MD LAB - [place] POCT Performing Organization Address City/[facility]/ZIP Code Phon e Number FV POINT OF CARE TEST, GLUCOSE POINT OF CARE TEST, GLUCOSE Glucose by meter (08/09/2012 6:12 PM CDT) P athologist Signature Glucose 64 60 - 99 POINT OF CARE mg/dL TEST, GLUCOSE Specimen Anatomical Collection Method Collection Time Receive d Time (Source) Location / / Volume Laterality 08/09/2012 6:12 PM 2 6:15 CDT PM CDT Michele DEAN - DAVID POCT Performing Organization Address City/State/ZIP Code Phon e Number [facility] POINT OF CARE TEST, GLUCOSE POINT OF CARE TEST, GLUCOSE (ABNORMAL) Glucose by meter (08/09/2012 3:30 PM CDT) P athologist Signature Glucose 106 (H) 60 - 99 POINT OF CARE mg/dL TEST, HANDHELD METER Specimen Anatomical Collection Method Collection Time Receive d Time (Source) Location / / Volume Laterality 08/09/2012 3:30 PM 2 3:40 CDT PM CDT Michele DEAN - DAVID POCT Performing Organization Address City/[facility]/ZIP Code Phon e Number FV POINT OF CARE TEST, HANDHELD METER POINT OF CARE TEST, HANDHELD METER Glucose by meter (08/09/2012 2:45 PM CDT) P athologist Signature Glucose 87 60 - 99 POINT OF CARE mg/dL TEST, GLUCOSE Specimen Anatomical Collection Method Collection Time Receive d Time (Source) Location / / Volume Laterality 08/09/2012 2:45 PM 2 2:50 CDT PM CDT Michele DEAN - DAVID POCT Performing Organization Address City/[facility]/ZIP Code Phon e Number FV POINT OF CARE TEST, GLUCOSE POINT OF CARE TEST, GLUCOSE Glucose by meter (08/09/2012 9:33 AM CDT) P athologist Signature Glucose 96 60 - 99 POINT OF CARE mg/dL TEST, GLUCOSE Specimen Anatomical Collection Method Collection Time Receive d Time (Source) Location / / Volume Laterality 08/09/2012 9:33 AM 2 9:35 CDT AM CDT Michele HERNANDEZ POCT Performing Organization Address City/State/ZIP Code Phon e Number FV POINT OF CARE TEST, GLUCOSE POINT OF CARE TEST, GLUCOSE (ABNORMAL) Glucose by meter (08/09/2012 8:22 AM CDT) P athologist Signature Glucose 106 (H) 60 - 99 POINT OF CARE mg/dL TEST, GLUCOSE Specimen Anatomical Collection Method Collection Time Receive d Time (Source) Location / / Volume Laterality 08/09/2012 8:22 AM 2 8:26 CDT AM CDT Michele Fuentes MD LAB - BEAKER POCT Performing Organization Address City/[facility]/ZIP Code Phon e Number FV POINT OF CARE TEST, GLUCOSE POINT OF CARE TEST, GLUCOSE (ABNORMAL) INR (08/09/2012 5:56 AM CDT) athologist Signature INR 2.26 (H) 0.86 - 1.14 [facility] Specimen Anatomical Collection Method Collection Time Receive d Time (Source) Location / / Volume Laterality Blood specimen 08/09/2012 5:56 AM 012 6:04 (specimen) CDT AM CDT Alvaro Cyr MD LAB - BLOOD ORDERABLES Performing Organization Address City/[facility]/ZIP Code Phon e Number M [facility] [address] [phone] [place] [address] LAB (ABNORMAL) Hemoglobin (08/09/2012 5:56 AM CDT) athologist Signature Hemoglobin 9.3 (L) 13.3 - 17.7 [place] g/dL [facility] Specimen Anatomical Collection Method Collection Time Receive d Time (Source) Location / / Volume Laterality Blood specimen 08/09/2012 5:56 AM 012 6:04 (specimen) CDT AM CDT Alvaro Cyr MD LAB - BLOOD ORDERABLES Performing Organization Address City/[facility]/ZIP Code Phon e Number M [facility] [address] [place] [address] [facility] Potassium (08/09/2012 5:56 AM CDT) athologist Signature Potassium 5.1 3.4 - 5.3 [place] mmol/L [facility] Specimen Anatomical Collection Method Collection Time Receive d Time (Source) Location / / Volume Laterality Blood specimen 08/09/2012 5:56 AM 012 6:04 (specimen) CDT AM CDT Alvaro Cyr MD LAB - BLOOD ORDERABLES Performing Organization Address City/State/ZIP Code Phon e Number [facility] [address] [place] [address] [facility] ABO/Rh type and screen (08/09/2012 5:36 AM CDT) Patholo gist Method Time Signature ABO Canceled, [place] Test credited [facility] RH(D) Canceled, [place] Test credited [facility] Antibody Canceled, [place] Screen Test credited [facility] Specimen 08/12/2012 [place] Expires [facility] Blood Bank Duplicate [place] Comment request [facility] Specimen Anatomical Collection Method Collection Time Receive d Time (Source) Location / / Volume Laterality Blood specimen 08/09/2012 5:36 AM 012 6:05 (specimen) CDT AM CDT Alvaro Cyr MD LAB - BLOOD BANK TEST ORDER Performing Organization Address City/State/ZIP Code Phon e Number [facility] [address] [id number] [phone] [facility] (ABNORMAL) Glucose by meter (08/08/2012 6:26 PM CDT) P athologist Signature Glucose 104 (H) 60 - 99 POINT OF CARE mg/dL TEST, HANDHELD METER Specimen Anatomical Collection Method Collection Time Receive d Time (Source) Location / / Volume Laterality 08/08/2012 6:26 PM 2 6:35 CDT PM CDT Michele Fuentes MD LAB - BEAK[place] POCT Performing Organization Address City/State/ZIP Code Phon e Number [facility] POINT OF CARE TEST, HANDHELD METER POINT OF CARE TEST, HANDHELD METER INT Tunnel catheter placement >5 years rt (08/08/2012 4:50 PM CDT) Anatomical Region Laterality Modality Chest Radio Fluoroscopy Specimen (Source) Anatomical Collection Method Collection Time Re ceived Time Location / / Volume Laterality 08/08/2012 4:50 PM CDT Impressions 08/08/2012 7:12 PM CDT TUNNEL CATH PLACEMENT RIGHT ??08/08/2012 5:28 PM HISTORY: 47-year-old male with end-stage renal disease requires dialysis. Patient has a known occlusion of the SVC. He had a right profunda femoris artery to common femora l vein dialysis graft utilizing cadaveric artery. This graft h as now thrombosed 4 times in the last 2 weeks. Patient requires centr al venous access for dialysis until a new surgical dialysis access can be created. Comparison: CT scan of the abdomen and p elda dated 08/08/2012 Description of procedure: The patient wa s initially placed in a supine position on the fluoroscopy table . Anesthesia was provided by the anesthesiology service. The right gr oin was prepped and draped in the usual sterile manner. 1% lidocaine w as injected for local anesthesia. Ultrasound was used to evalu ate and document patency of the right common femoral vein. The commo n femoral vein was not well-visualized therefore, access into t he thrombosed venous end of the right thigh graft was obtained direc suzan towards the central veins. A wire was passed into the IVC. O billie the wire, a pigtail catheter was positioned at L2-3 level. The patient was then placed in a left la teral decubitus position. The right lower back and lateral upper thigh were prepped and draped in the usual sterile manner. 1% lidocaine w as injected for local anesthesia. A 20 cm blunt Ellis needle was then directed from just superior to the mid right iliac wing tow ards the pigtail catheter. Successful entry into the IVC was obtain ed at L2-3 level. A stiff wire was then passed into the inferior v koko cava. A CHARLI one catheter was passed over the wire into the inferi or vena cava. An IVC gram was performed. This confirmed adequate posit ioning within the IVC. A stiff wire was again passed into the IVC . Over the wire, a 16 Slovak peel-away sheath was placed. Approximately 15 cm laterally and inferi yonatan, a small skin incision was made. A tunnel was created from the skin incision to the peel-away sheath. A 15.5 Slovak 50 cm di alysis catheter was then passed through this tunnel to the peel-a way sheath. The catheter was passed through the peel-away sheath. The tip was positioned in the lower right atrium. Both ports were aspi rated, flushed with saline and heparin locked. The catheter was sut ured to the patient's skin. Dermabond was applied at the IVC needle entry site. The patient tolerated the procedure well . There were no immediate postprocedure complications. The patient 's vital signs were monitored by radiology nursing staff under my supe rvision and remained stable throughout the study. Medications: Per anesthesia Fluoroscopy time: 7.5 minutes Contrast: 25 cc Isovue Local anesthetic: 30 cc Impression: Translumbar tunneled dialysi s catheter placed as above. The catheter is ready to use. Michele Fuentes MD IMG IR ORDERABLES Glucose by meter (08/08/2012 4:35 PM CDT) athologist Signature Glucose 70 60 - 99 POINT OF CARE mg/dL TEST, HANDHELD METER Specimen Anatomical Collection Method Collection Time Receive d Time (Source) Location / / Volume Laterality 08/08/2012 4:35 PM 2 4:40 CDT PM CDT Michele Fuentes MD LAB - BEAKER POCT Performing Organization Address City/[facility]/ZIP Code Phon e Number [facility] POINT OF CARE TEST, HANDHELD METER POINT OF CARE TEST, HANDHELD METER Blood component (08/08/2012 3:08 PM CDT) [facility] Method Time Signature Unit Number [id number] [facility] Blood Red Blood [place] Component Cells [facility] Reduced Status of Released to [place] Unit care [facility] LAB Specimen Anatomical Collection Method Collection Time Receive d Time (Source) Location / / Volume Laterality 08/08/2012 3:08 PM 2 3:10 CDT PM CDT Michele Fuentes MD LABORATORY Performing Organization Address City/State/ZIP Code Phon e Number [facility] [address] [phone] [facility] Blood component (08/08/2012 3:08 PM CDT) [facility] Method Time Signature Unit Number [id number] [facility] Blood Red Blood [place] Component Cells [facility] LAB Reduced Status of Released to [place] Unit care unit [facility] Specimen Anatomical Collection Method Collection Time Receive d Time (Source) Location / / Volume Laterality 08/08/2012 3:08 PM 2 3:10 CDT PM CDT Michele Fuentes MD LABORATORY Performing Organization Address City/State/ZIP Code Phon e Number [facility] [address] [place] [address] [facility] ABO/Rh type and screen (08/08/2012 3:08 PM CDT) Patholo gist Method Time Signature Units Ordered 2 [facility] ABO O [facility] RH(D) Pos [facility] Antibody Screen Neg [facility] Specimen 08/11/2012 [facility] Crossmatch Red Blood [facility] LAB Specimen Anatomical Collection Method Collection Time Receive d Time (Source) Location / / Volume Laterality 08/08/2012 3:08 PM 2 3:10 CDT PM CDT Michele Fuentes MD LAB - BLOOD BANK TEST ORDER Performing Organization Address City/[facility]/ZIP Code Phon e Number [facility] [address] [place] [address] [phone] [facility] EKG 12-lead, tracing only (08/08/2012 1:53 PM CDT) Component Value Ref Range Test Analysis Performed Pathologis t Method Time At Signature Ventricular Rate 72 BPM RADIOLOGY RESULTS Atrial Rate 72 BPM RADIOLOGY RESULTS FL Interval 182 ms RADIOLOGY RESULTS QRS Duration 88 ms RADIOLOGY RESULTS QT 394 ms RADIOLOGY RESULTS QTc 431 ms RADIOLOGY RESULTS P [place] 52 degrees RADIOLOGY RESULTS R AXIS 11 degrees RADIOLOGY RESULTS T [place] 50 degrees RADIOLOGY RESULTS Interpretation Sinus rhythm RADIOLOGY ECG RESULTS Interpretation Septal infarct RADIOLOGY ECG (cited on or RESULTS before 15-JAN-2011) Interpretation Abnormal ECG RADIOLOGY ECG RESULTS Interpretation When compared RADIOLOGY ECG with ECG of RESULTS 15-JAN-2011 11:27, Interpretation No significant RADIOLOGY ECG change was found RESULTS Interpretation Unconfirmed report - interpr etation of this ECG is computer generated - see RADIOLOGY ECG medical record for final interpretation RESULTS Specimen (Source) Anatomical Collection Method Collection Time Re ceived Time Location / / Volume Laterality 08/08/2012 1:53 PM CDT Zuleyka Olson ECG ORDERABLES Performing Organization Address City/State/ZIP Code Phon e Number RADIOLOGY RESULTS (ABNORMAL) INR (08/08/2012 12:55 PM CDT) P athologist Signature INR 2.37 (H) 0.86 - 1.14 [facility] Specimen Anatomical Collection Method Collection Time Receive d Time (Source) Location / / Volume Laterality Blood specimen 08/08/2012 12:55 2 1:01 (specimen) PM CDT PM CDT Alvaro Cyr MD LAB - BLOOD ORDERABLES Performing Organization Address City/[facility]/ZIP Code Phon e Number [facility] [address] [place] [address] [phone] [facility] (ABNORMAL) CBC with platelets (08/08/2012 12:55 PM CDT) Analysis Performed At Patho logist Time Signature WBC 4.1 4.0 - 11.0 [place] 10e9/L [facility] RBC Count 2.84 (L) 4.4 - 5.9 [place] 10e12/L [facility] Hemoglobin 7.7 (L) 13.3 - [place] 17.7 g/dL [facility] Hematocrit 25.0 (L) 40.0 - [place] 53.0 % [facility] MCV 88 78 - 100 [place] fl [facility] MCH 27.1 26.5 - [place] 33.0 pg [facility] MCHC 30.8 (L) 31.5 - [place] 36.5 g/dL [facility] RDW 15.6 (H) 10.0 - [place] 15.0 % [facility] Platelet Count 145 (L) 150 - 450 [place] 10e9/L [facility] Specimen Anatomical Collection Method Collection Time Receive d Time (Source) Location / / Volume Laterality Blood specimen 08/08/2012 12:55 2 1:01 (specimen) PM CDT PM CDT Alvaro Cyr MD LAB - BLOOD ORDERABLES Performing Organization Address City/State/ZIP Code Phon e Number [facility] [address] [place] [address] [facility] (ABNORMAL) Basic metabolic panel (08/08/2012 12:55 PM CDT) [facility] Method Time Signature Sodium 139 133 - 144 [place] mmol/L [facility] Potassium 5.9 (H) 3.4 - 5.3 [place] mmol/L [facility] Chloride 98 94 - 109 [place] mmol/L [facility] Carbon Dioxide 27 20 - 32 [place] mmol/L [facility] Anion Gap 14 6 - 17 [place] mmol/L [facility] Glucose 74 60 - 99 [place] mg/dL [facility] Urea Nitrogen 77 (H) 5 - 24 [place] mg/dL [facility] Creatinine 11.87 (H) 0.66 - [facility] 1.25 mg/dL [facility] GFR Estimate 5 (L) >60 [place] mL/min/1.[address] LAB GFR Estimate If 6 (L) >60 [place] Black mL/min/1.[address] LAB Calcium 9.5 8.5 - 10.4 [place] mg/dL [facility] Specimen Anatomical Collection Method Collection Time Receive d Time (Source) Location / / Volume Laterality Blood specimen 08/08/2012 12:55 2 1:01 (specimen) PM CDT PM CDT Alvaro Cyr MD LAB - BLOOD ORDERABLES Performing Organization Address City/State/ZIP Code Phon e Number [facility] [address] [place] [address] [facility] - HIM ECG Scan (08/08/2012) Narrative This result has an attachment that is no t available. Zuleyka Gjerde ECG ORDERABLES documented in this encounter Visit Diagnoses Not on filedocumented in this encounter Administered Medications Inactive Administered Medications - up to 3 most recent administrations Medication Order MAR Action Action Date Dose Rate Site 0.9 % sodium chloride IV New Bag 08/09/2012 9:09 AM CDT 1,000 mLs 10 mL/hr solution at 10 mL/hr, Intravenous, CONTINUOUS, Pre-procedure, Starting on Tue08/09/12 at 0845, Until Tue08/09/12 at 1434 B cuhbxdk-D-bivxi acid (NEPHROCAPS) capsule 1 Given 12:36 PM CDT 1 mg mg 1 mg (1 capsule), Oral, DAILY, First dose on Tue08/08/12 at 1830 calcium acetate (PHOSLO) capsule 1,334 m g Given 08/10/2012 1:48 PM CDT 1,334 mg 1,334 mg, Oral, 3 TIMES DAILY WITH MEALS, First dose on Tue08/08/12 at 1830, Best if given with meals. Take with meals. Given 08/10/2012 10:39 AM CDT 1,334 mg Given 08/09/2012 6:31 PM CDT 1,334 mg dextrose 50 % solution 25 mL Given 08/09/2012 2:45 PM CDT 25 mLs 25 mL, Intravenous, ONCE, On Tue08/09/12 at 1530, For 1 dose, Per Dr Hernandez, Post-procedure doxercalciferol (HECTOROL) injection 1.5 Given 08/10/2012 10:07 AM CDT 1.5 mcg mcg 1.5 mcg, Intravenous, SEE ADMIN INSTRUCTIONS, Starting on Tue08/08/12 at 1610, Given during each dialysis (per request) Given 08/08/2012 7:15 PM CDT 1.5 mcg epoetin mauricio (EPOGEN,PROCRIT) injection Given 08/08/20 12 7:16 PM CDT 10,000 Units 10,000 Units 10,000 Units, Intravenous, ONCE, On Tue08/08/12 at 1615, For 1 dose, Given during each dialysis (per request) , Dialysis, Hemoglobin reviewed? has reviewed/ordered hemoglobin within the required timeline epoetin mauricio (EPOGEN,PROCRIT) Given 08/10/2012 10:08 AM CDT 10,0 00 Units injection 10,000 Units 10,000 Units, Intravenous, ONCE, On Padma[place] 08/10/12 at 0715, For 1 dose, Given during each dialysis (per request) , Dialysis, Hemoglobin reviewed? has reviewed/ordered hemoglobin within the required timeline heparin 100 UNIT/ML injection Given 08/08/2012 3:19 PM CDT 1,000 Units PRN, line flush, Starting on Tue08/08/12 at 1519, Intra-procedure heparin injection Given 08/08/2012 4:05 PM 10,000 Units Operative PRN, Starting on Tue CDT Site /Surgical Site 08/08/12 at 1605, High concentration HEParin. Not for line flush or cath care., Intra-procedure HYDROmorphone (DILAUDID) injection 0.2-0 .4 mg Given 08/09/2012 3:30 PM CDT 0.4 mg 0.2-0.4 mg, Intravenous, EVERY 5 MIN PRN, moderate to severe pain, acute pain. May administer if RR is > 10 , Starting on Tue08/09/12 at 1443, If fentanyl is also ordered, use HYDROmorphone if pain control insufficient with fentanyl or a longer acting agent is needed. Max cumulative dose = 2 mg , PACU iopamidol (ISOVUE-300) IV Given 08/08/2012 4:01 PM 25 mLs Operative Site/Surgical solution 61% CDT Site PRN, Starting on Tue08/08/12 at 1601, Supplied and administered by Radiology., Intra-procedure lidocaine (PF) (XYLOCAINE) Given 08/08/2012 3:28 PM 25 mLs Operative Site/Surgical 1 % injection CDT Site PRN, Starting on Tue08/08/12 at 1528, Intra-procedure lisinopril (PRINIVIL,ZESTRIL) tablet 40 mg Given 08/09/2012 6:35 PM CDT 40 mg 40 mg, Oral, DAILY, First dose on Tue08/08/12 at 1830, Hold for SBP < 100 Hold on days of dialysis Given 08/08/2012 10:53 PM CDT 40 mg metoprolol (LOPRESSOR) tablet 100 mg Given 08/09/2012 9:17 PM CDT 100 mg 100 mg, Oral, 2 TIMES DAILY, First dose on Tue08/08/12 at 2000, Hold for SBP < 100 or HR < 60 Given 08/09/2012 9:09 AM CDT 100 mg Given 08/08/2012 10:52 PM CDT 100 mg midazolam (VERSED) injection 1 mg Given 08/09/2012 3:30 PM CDT 1 mg 1 mg, Intravenous, EVERY 5 MIN PRN, muscle spasms, Starting on Tue08/09/12 at 1533, For 4 doses, Max cumulative dose = 2 mg, PACU midazolam (VERSED) injection 1 mg Given 08/09/2012 3:30 PM CDT 1 mg 1 mg, Intravenous, ONCE, On Tue08/09/12 at 1630, For 1 dose, PACU senna-docusate (SENOKOT-S;PERICOLACE) Given 08/10/2012 1:47 PM C DT 1 tablet 8.6-50 MG per tablet 1-2 tablet 1-2 tablet, Oral, 2 TIMES DAILY, First dose on Tue08/09/12 at 2100, Start with 1 tablet PO BID, If no bowel movement in 24 hours, increase to 2 tablets po BID. Hold for loose stools. Preferred agent for constipation related to opioids., Post-procedure Given 08/09/2012 9:18 PM CDT 1 tablet simvastatin (ZOCOR) tablet 40 mg Given 08/09/2012 9:18 PM CDT 40 mg 40 mg, Oral, EVERY EVENING, First dose on Tue08/08/12 at 2000 Given 08/08/2012 10:52 PM CDT 40 mg sodium chloride 0.9 % BOLUS 250 mL New Bag 08/08/2012 6:35 PM CDT 300 mLs mL/hr Hemodialysis Machine, 250 mL, ONCE, On Tue08/08/12 at 1615, For 1 dose, For Dialyzer Prime. (In Dialyzer), Dialysis sodium chloride 0.9 % BOLUS 250 mL New Bag 08/10/2012 12:02 PM CDT 1,000 mLs mL/hr Hemodialysis Machine, 250 mL, ONCE, On Tue08/10/12 at 0715, For 1 dose, For Dialyzer Prime. (In Dialyzer), Dialysis documented in this encounter Active and Recently Administered Medications Times are shown in CDT. Scheduled Medication Order 08/08/2012 08/09/2012 08/10/2012 B rfcjvgt-H-aphsx acid (NEPHROCAPS) capsule 1 mg (CANC ELED) 1830 (Not Given - Provider: Buffy Montiel RN - Reason: Transfer to a procedural area) 0829 (Auto Hold - Provider: Orders Generic Provider - Reason: Transfer to a procedural area)1728 (Unhold - Provider: Orders Generic Provider)1833 (Not Given - Provider: Sabrina Alberto RN - Reason: Not in room) 1236 (Given - Provider: Tahmina Bah) 1 capsule = 1 mg, Oral, DAILY, First dose on Tue08/08/12 at 183 0 calcium acetate (PHOSLO) capsule 1,334 mg (CANCELED) 2 251 (Given - Provider: Buffy Montiel, LINDA) 0829 (Auto Hold - Provider: Orders Gener ic Provider - Reason: Transfer to a procedural area)1200 (Automatically Held - Provider: Orders Generic Provider)1728 (Unhold - Provider: Orders Generic Provider)1831 (Given - Provider: Sabrina Alberto RN) 1039 (Given - Provider: Josue Byrnes, LINDA)1348 (Given - Provider: Tahmina Bah - Comment: given with meal.) 1,334 mg, Oral, 3 TIMES DAILY WITH MEALS , First dose on Tue08/08/12 at 1830, Best if given with meals. Take with meals. 1833 (Not G iven - Provider: Sabrina Alberto RN - Reason: Patient not available) ceFAZolin (ANCEF) 1 g vial to attach to IVPB (COMPLETED) 1103 (Given - Provider: Inocencia Carvalho APRN LICENSED HOME INSPECTOR) 2 g, Intravenous, for 30 Minutes, PRE-OP /PRE-PROCEDURE, For 1 dose, Pre-procedure dextrose 50 % solution 25 mL (COMPLETED) 1445 (Given - Provider: Criss Moreno RN - Comment: [facility] 96) 25 mL, Intravenous, ONCE, Tue08/09/12 a t 1530, For 1 dose, Per Dr Hernandez, Post-procedure doxercalciferol (HECTOROL) injection 1.5 mcg (CANCELED ) 1915 (Given - Provider: Stacy Del Rio, LINDA - Comment: given on dialysis) 0829 (Auto Hold - Provider: Orders Generic Provider - Reason: Transfer to a procedural area)1728 (Unhold - Provider: Orders Generic Provider) 1007 (Given - Provider: Josue Byrnes, LINDA) 1.5 mcg, Intravenous, SEE ADMIN INSTRUCT IONS, Given during each dialysis (per request) epoetin mauricio (EPOGEN,PROCRIT) injection 10,000 Units ( COMPLETED) 1916 (Given - Provider: Stacy Del Rio RN - Comment: given on dialysis) 10,000 Units, Intravenous, ONCE, 08/10 at 1615, For 1 dose, Given during each dialysis (per request) , Dialysis epoetin mauricio (EPOGEN,PROCRIT) injection 10,000 Units (COMPLETED) 1008 (Given - Provider: Josue Byrnes RN) 10,000 Units, Intravenous, ONCE, [facility] 08/10/12 at 0715, For 1 dose, Given during each dialysis (per request) , Dialysis lisinopril (PRINIVIL,ZESTRIL) tablet 40 mg (CANCELED) 2253 (Given - Provider: Buffy Montiel RN) 0829 (Auto Hold - Provider: Orders Gener ic Provider - Reason: Transfer to a procedural area)1728 (Unhold - Provider: Orders Generic Provider)1835 (Given - Provider: Sabrina Alberto RN) 1336 (Not Given - Provider: Mirlande Ruth - Reason: Other - Comment: reschedule to bedtime) 40 mg, Oral, DAILY, First dose on Tue at 1830, Hold for SBP < 100 Hold on days of dialysis metoprolol (LOPRESSOR) tablet 100 mg (CANCELED) 2252 ( Given - Provider: Buffy Montiel RN) 0829 (Auto Hold - Provider: Orders Gener ic Provider - Reason: Transfer to a procedural area)0909 (Given - Provider: Arianna Arango RN - Comment: ok'd per Dr Olson)1728 (Unhold - Provider: Orders Generic Provider) 1337 (Not Given - Provider: Mirlande Ruth - Reason: Other - Comment: rescheduled) 100 mg, Oral, 2 TIMES DAILY, First dose on Tue08/08/12 at 2000, Hold for SBP < 100 or HR < 60 2117 (Given - Provider: Jayne isbell RN) midazolam (VERSED) injection 1 mg (COMPLETED) 1530 (Given - Provider: Criss Moreno RN) 1 mg, Intravenous, ONCE, Tue08/09/12 at 1630, For 1 dose, PACU senna-docusate (SENOKOT-S;PERICOLACE) 8. 6-50 MG per tablet 1-2 tablet (CANCELED) 2117 (Given - Provider: Jayne isbell, LINDA) 1347 (Given - Provider: Tahmina Bah) 1-2 tablet, Oral, 2 TIMES DAILY, First d ose on Tue08/09/12 at 2100, Start with 1 tablet PO BID, If no bowel movement in 24 hours, increase to 2 tablets po BID. Hold for loose stools. Preferred agent fo r constipation related to opioids., Post-procedure simvastatin (ZOCOR) tablet 40 mg (CANCELED) 2251 (Give n - Provider: Buffy Montiel RN) 0829 (Auto Hold - Provider: Orders Gener ic Provider - Reason: Transfer to a procedural area)172 (Unhold - Provider: Orders Generic Provider)2117 (Given - Provider: Jayne Kellogg, LINDA) 40 mg, Oral, EVERY EVENING, First dose on Tue08/08/12 at 2000 sodium chloride 0.9 % BOLUS 250 mL (COMPLETED) 1835 (N ew Bag - Provider: Stacy Del Rio, LINDA - Comment: given as prime on dialysis) Hemodialysis Machine, 250 mL, ONCE, Tue08/08/12 at 1615, For 1 dose, For Dialyzer Prime. 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 (In Dialyzer), Dialysis warfarin (COUMADIN) tablet 5 mg 5 mg, Oral, ONCE AT 6PM, Tue08/10/12 at 1800, For 1 dose, Dispos e as HW-P Continuous Medication Order 08/08/2012 08/09/2012 08/10/2012 0.9 % sodium chloride IV solution (CANCELED) 0909 (New Bag - Provider: Arianna Arango RN) 1,000 mL, Intravenous, at 10 mL/hr, CONT INUOUS, Starting Tue08/09/12 at 0845, Pre-procedure 0.9 % sodium chloride IV solution (CANCELED) 1749 (New Bag - Provider: Sabrina Alberto RN) 1,000 mL, Intravenous, at 75 mL/hr, CONT INUOUS, Starting Tue08/09/12 at 1745, Post-procedure PRN Medication Order 08/08/2012 08/09/2012 08/10/2012 heparin 100 UNIT/ML injection (CANCELED) 1519 (Given - Provider: Michele Fuentes MD) PRN, line flush, Starting Tue08/08/12 at 1519, Intra-procedure heparin 2,500 units in 250 mL 0.9% NaCl (CANCELED) 1100 (Given - Provider: Rober Saravia MD - Comment: Available on field PRN) PRN, Starting Tue08/09/12 at 1100, Intra-procedure heparin injection (CANCELED) 1605 (Given - Provider: Abhinav Fuentes MD - Comment: Irrigation mixed with NaCl 1500ml) PRN, Starting Tue08/08/12 at 1605, High concentration HEParin. Not for line flush or cath care., Intra-procedure HYDROcodone-acetaminophen 5-325 MG per tablet 1-2 tablet (CANCEL ED) 0818 (Given - Provider: Josue Byrnes, LINDA) 1-2 tablet, Oral, EVERY 6 HOURS PRN, mod erate to severe pain, Starting Tue08/09/12 at 1740, Hold while on PIPE SMOKER MACHINE OPERATOR or with regular IV opioid dosing., Post-procedure HYDROmorphone (DILAUDID) injection 0.2-0.4 mg (CANCELED) 1530 (Given - Provider: Criss Moreno RN) 0.2-0.4 mg, Intravenous, EVERY 5 MIN PRN , moderate to severe pain, acute pain. May administer if RR is > 10 , Starting Tue08/09/12 at 1443, If fentanyl is also ordered, use HYDROmorphone if pain con trol insufficient with fentanyl or a pratima andie acting agent is needed. Max cumulative dose = 2 mg , PACU iopamidol (ISOVUE-300) IV solution 61% (CANCELED) 1601 (Given - Provider: Michele Fuentes MD) PRN, Starting Tue08/08/12 at 1601, Supp lied and administered by Radiology., Intra-procedure lidocaine (PF) (XYLOCAINE) 1 % injection (CANCELED) 15 28 (Given - Provider: Michele Fuentes MD) PRN, Starting Tue08/08/12 at 1528, Intra-procedure midazolam (VERSED) injection 1 mg (CANCELED) 1530 (Given - Provider: Criss Moreno RN) 1 mg, Intravenous, EVERY 5 MIN PRN, Star ting Tue08/09/12 at 1533, For 4 doses, muscle spasms, Max cumulative dose = 2 mg, PACU sodium chloride 0.9% (bottle) irrigation (CANCELED) 1105 (Given - Provider: Rober Saravia MD) PRN, Starting Tue08/09/12 at 1105, Area to irrigate and instructions: ., Intra-procedure documented in this encounter Care Teams Field Health Officer Relationship Specialty Start Date End Date Preet Huff PCP - General 06/24/11 documented as of this encounter
--- OUTSIDE RECORDS SUMMARY | 2022-09-01 20:24 | XMS_ITS | Encounter Summary ---
:1965 Author Organization [facility] [place] Address [facility] [place] [address] Care Team Providers Name Role Phone Preet Huff Primary Care Provider Encounter Details Date Type Department Care Team Description 08/08/2012 Hospital Encounter [facility] [address] [place], [place] [id number] ESRF (end stage [facility] Michele Fuentes MD [facility] [address] [place] [address] renal failure) (H) [address] [facility] [place] [id number] Social History Tobacco Use Types Packs/Day Years Used Date Smoking Tobacco: Never Smokeless Tobacco: Never Alcohol Use Standard Drinks/Week Comments No 0 (1 standard drink = 0.6 oz pure alcoho l) Sex Assigned at Date Recorded Not on file documented as of this encounter Last Filed Vital Signs Vital Sign Reading Time Taken Comments Blood Pressure 146/64 08/09/2012 9:14 PM CDT Pulse 81 08/09/2012 9:14 PM CDT Temperature 36.8 ??C (98.3 ??F) 08/09/2012 9:14 PM CDT Respiratory Rate 16 08/09/2012 9:14 PM CDT Oxygen Saturation 100% 08/09/2012 9:14 PM CDT Inhaled Oxygen Concentration - - [...] 7. Obstructive sleep apnea. 8. Blindness. HOSPITAL COURSE Julio Cesar Victor is a 47-year-old -[place] male with end- stage renal disease coming as a result of diabetes mellitus. He has had frequent trips to the hospital related to complications of vascular access recently. He had an existing right thigh graft with a cadaver vessel. This clotted on 07/31 and was declotted in Interventional Radiology. It clotted before he could get to dialysis once again and therefore, it was declotted the following day, 08/01 and a stent was deployed and Plavix was added to his medicines. It clotted once again after he dialyzed and therefore, he was declotted on 08/03 and was [...] His INRs will be monitored in the [facility]. Dr. Holman will continue to be his shield runner there and will manage the warfarin. ALVARO CYR MD MT: [id number] Name: JULIO CESAR VICTOR Account: [id number] : 1965 Admit Date: Discharge Date: 08/08/2012 Document: [id number] documented in this encounter Medications at Time of Discharge Medication Sig Dispensed Refills Start Date End Date b wvhwhsg-E-tiwyq acid Take 1 capsule by 0 03/04/2016 [...] daily. dialysis device, implant, or graft complication clopidogrel (PLAVIX) 75 Take 1 tablet by 5 tablet 0 201108/10/2012 MG tabletIndications: mouth daily. ESRF (end stage renal failure) (H), AVF (arteriovenous fistula) (H) FOLIC ACID PO Take by mouth. 0 012 FOLIC ACID-VITAMIN C PO Take 100 mg by mouth 0 11/08/2012 daily. Per [facility] HYDROcodone-acetaminophen Take 1 tablet by 20 tablet 0 04/1008/10/2012 5-325 MG per mouth every 6 hours tabletIndications: A-V as needed for pain. fistula (H) Warfarin Sodium (WARFARIN 1 each daily. 30 each 0 012 08/10/2012 THERAPY REMINDER)Indications: CRF (chronic renal failure), AVF (arteriovenous fistula) (H), A-V fistula (H), Clotted dialysis access (H) documented as of this encounter Progress Notes Lucy Singh - 08/08/2012 2:[address] Fuentes is aware of of high creat and low GFR and still wants this test done with contrast. Suzan consulted with him. Lucy cath lab technologist. documented in this encounter Plan of Treatment Not on filedocumented as of this encounter Procedures Procedure Name Priority Date/Time Associated Diagnosis Comme nts CT ABDOMEN PELVIS W Routine 08/08/2012 2:35 PM ESRF (end stage Results for this CONTRAST CDT renal failure) (H) procedure are in the results section. documented in this encounter Results CT Abdomen pelvis w contrast* (08/08/2012 2:35 PM CDT) Anatomical Region Laterality Modality Abdomen/Pelvis, SUBRAD CT BODY, UMP CT ABDOMEN PELVIS Computed Tomography Specimen (Source) Anatomical Collection Method Collection Time Re ceived Time Location / / Volume Laterality 08/08/2012 2:35 PM CDT Impressions 08/09/2012 10:[address] ABDOMEN/PELVIS WITH CONTRAST ??2011 2:35 PM HISTORY: End-stage renal disease. Failed femoral access graft. Patient will undergo translumbar tunnele d catheter placement. TECHNIQUE: Scans obtained from the diaph ragm through the pelvis without oral and with IV contrast. 100 m L Isovue 370 injected. COMPARISON: None. FINDINGS: Liver, spleen, and pancreas ar e normal. Perinephric stranding and both kidneys. Probable sma ll cysts in the right kidney. Both kidneys are otherwise unremarkable. Extensive venous collaterals identified in the left side of the abdom en and to a lesser extent the right side of the abdomen. These finding s are consistent with venous obstruction in the upper extremities. Cl inical correlation recommended. There is good opacification of the left common femoral and iliac veins. The right iliac veins a re not opacified which may be secondary to unopacified blood, however, thrombus in the right iliac veins extending into the lower IVC canno t be excluded. Colon and small bowel are unremarkable. Unopacifie d graft identified in the right groin. Remainder of the scan is ne gative. IMPRESSION: 1. Extensive venous collaterals in the a bdomen which may be secondary to venous obstruction the upper extremit ies. Clinical correlation recommended. 2. Probable opacified blood in the right iliac veins and lower SVC, however, thrombus in this region cannot be totally excluded. 3. Bilateral perinephric stranding with small cysts in the right kidney. Michele Fuentes MD IMG CT ORDERABLES documented in this encounter Visit Diagnoses Diagnosis ESRF (end stage renal failure) (H) End stage renal disease documented in this encounter Administered Medications Inactive Administered Medications - up to 3 most recent administrations Medication Order MAR Action Action Date Dose Rate Site 0.9 % sodium chloride IV New Bag 08/09/2012 5:49 PM CDT 1,000 mLs 75 mL/hr solution at 75 mL/hr, Intravenous, CONTINUOUS, Post-procedure, Starting on 08/09/12 at 1745, Until Padmaja 08/10/12 at 0840 calcium acetate (PHOSLO) capsule 1,334 m g Given 08/10/2012 1:48 PM CDT 1,334 mg 1,334 mg, Oral, 3 TIMES DAILY WITH MEALS, First dose on Tue08/08/12 at 1830, Best if given with meals. Take with meals. Given 08/10/2012 10:39 AM CDT 1,334 mg Given 08/09/2012 6:31 PM CDT 1,334 mg HYDROcodone-acetaminophen 5-325 MG per Given 08/10/2012 8:18 AM CDT 2 tablets tablet 1-2 tablet 1-2 tablet, Oral, EVERY 6 HOURS PRN, moderate to severe pain, Starting on Tue08/09/12 at 1740, Hold while on RENAL SOCIAL WORKER or with regular IV opioid dosing., Post-procedure iopamidol (ISOVUE-370) 76% solution 120 mL Given 08/08/2012 2:23 PM CDT 81 mLs 120 mL, Intravenous, ONCE, On Tue08/08/12 at 1430, For 1 dose lisinopril (PRINIVIL,ZESTRIL) tablet 40 mg Given 08/09/2012 [...] Given 08/08/2012 10:52 PM CDT 100 mg senna-docusate (SENOKOT-S;PERICOLACE) Given 08/10/2012 1:47 PM C [...] Given 08/08/2012 10:52 PM CDT 40 mg documented in this encounter Care Teams Aerial Gunner Relationship Specialty Start Date End Date Preet Huff PCP - General 06/24/11 documented as of this encounter
--- OUTSIDE RECORDS SUMMARY | 2022-09-01 20:24 | XMS_ITS | Encounter Summary ---
:1965 Author Organization [place] Address [facility] [place] [address] Care Team Providers Name Role Phone Preet Huff Primary Care Provider Encounter Details Date Type Department Care Team Description 08/08/2012 - [facility] Michele Fuentes ESRF ( end stage renal failure) (H) (Primary Dx); 08/10/2012 Encounter Ariane Coleman MD A-V fistula (H); Intermediate Care [place] Renal dialysis device, impla nt, or graft complication [address] [facility] [address] [facility] [place] [address] [phone] [address] [place], [place] [address] Social History Tobacco Use Types Packs/Day Years Used Date Smoking Tobacco: Never Smokeless Tobacco: Never Alcohol Use Standard Drinks/Week Comments No 0 (1 standard drink = 0.6 oz pure alcoho l) Sex Assigned at Date Recorded Not on file documented as of this encounter Last Filed Vital Signs Vital Sign Reading Time Taken Comments Blood Pressure 112/60 08/10/2012 12:00 PM CDT Pulse 83 08/10/2012 3:27 AM CDT Temperature 37.2 ??C (98.9 ??F) 08/10/2012 1:53 PM CDT Respiratory Rate 16 08/10/2012 12:00 PM CDT Oxygen Saturation 95% 08/10/2012 12:00 PM CDT Inhaled Oxygen Concentration - - Weight 82.1 kg (181 lb) 08/10/2012 3:00 AM CDT bed zero ed Height - - Body Mass Index 31.07 08/03/2012 8:12 PM CDT documented in this encounter Discharge Summaries Alvaro [...] COURSE: Julio Cesar Sandhu is a 47-year-old -[place] male with end- [...] His INRs will be monitored in the [facility]. Dr. Carballo will continue to be his pulpwood contractor there and will manage the warfarin. Revised account 08/11/2012 verna ALVARO CYR MD MT: #[id number] Name: JULIO CESAR SANDHU Account: [id number] : 1965 Admit Date: Discharge Date: 08/10/2012 Document: [id number] documented in this encounter Discharge Instructions Discharge InstructionsSchoeMirlande jimenez - 08/10/2012 2:28 PM CDT R and [...] to hold the gauze in place. ? -Devyn may hold your incision closed. You might [...] or a colonoscopy. Other: Questions or concerns? [facility]: [phone] ([facility]) documented in this encounter Medications at Time of Discharge Medication Sig Dispensed Refills Start Date End Date b rbufbau-G-icyij acid Take 1 capsule by 0 03/04/2016 [...] Fuentes MD - 08/29/2012 12:35 AM CST SE WEIGHER Michele Fuentes MD - 08/15/2012 9:38 AM CST SE WEIGHER Josue Byrnes RN - 08/10/2012 2:21 PM [...] alfred mendiola student nurse. See flowsheet in [employer] for run details. Access worked great at [...] van transport. Successful dialysis run today. Isis Stanley RN - 08/10/2012 11:59 AM CDT Discussed coumadin dosing with Dr. Cyr. Patient will have INR's drawn at dialysis and coumadin dosed by nephrology. Next dialysis run is set for Tuesday. Dinora Anders LSW - 08/10/2012 10:33 AM CDT SW: D: Per CC pt will be DC to home today. Pt admitted for vascular surgery procedure. I: SW reviewed old chart to find transport company [...] 3 mL Intravenous Q8H ??? HYDROmorphone Intravenous ROVING FRAME TENDER ??? senna-docusate 1-2 tablet Oral BID ??? dextrose 25 mL Intravenous Once ??? midazolam 1 mg Intravenous Once ??? warfarin 7.5 mg Oral ONCE at 18:00 ??? warfarin-No DOSE today 1 each Does not apply no dose today (warfarin) ??? doxercalciferol 1.5 mcg Intravenous See Admin Instructions ??? lisinopril 40 mg Oral Daily ??? metoprolol 100 mg Oral BID ??? B sysolgo-A-zyqcy acid 1 capsule Oral Daily ??? calcium [...] vu Physical Exam: Vitals were reviewed in [facility] Wt Readings from Last 3 Encounters: [...] medications, labs and imaging. ALVARO CYR MD [facility] - Nephrology [phone] Rober Saravia MD - 08/10/2012 8:29 AM [...] of recurrent graft clotting. Wm. Rani HARPER AKT Sabrina Alberto RN - 08/09/2012 6:47 PM CDT Pt alert and oriented, very cooperative with nurses. Asking to drink water, very thirsty, BG = 64 ptis clear liquid diet, given Ashley juice given, dines pain, BS present, right groin dialysis sit dryand intact. Family at bed side. Will check BG From lab back 111. Sabrina Alberto RN - 08/09/2012 5:40 PM CDT Pt transfer from PACU 1740 pt alert to self sleepy , dialysis port right groin and thigh dry and intact. oriented to room and sitter at bedside . Pt Dines pain. Will continue to monitor. Muna Justin RN - 08/09/2012 8:51 AM CDT Observation status reviewed with pt and brochure given to him. Buffy Montiel RN - 08/09/2012 7:06 AM CDT Slept intermittently. NPO, VSS. 98.6 offers no C/O. Right tunnel cath drsg with small spot of old blood, otherwise intact. Buffy Montiel RN - 08/08/2012 9:59 PM [...] Plan new Right groin PTFE access tomorrow. Wm. Rani HARPER Alvaro Cyr MD - 08/08/2012 [...] ESRD. This is his fourth trip to [facility] this week for access difficulties. 07/31 declot [...] Reviewed in EPIC ??? heparin (porcine) ??? heparin (Porcine) Lock [...] vu Physical Exam: Vitals were reviewed in [facility] Wt Readings from Last 3 Encounters: [...] medications, labs and imaging. ALVARO CYR MD [facility] - Nephrology [phone] Stacy Del Rio RN - 08/08/2012 5:21 PM CDT PRE PROCEDURE DIALYSIS NOTE Pre treatment report received from Criss Booth service agentcascara bark cutter machine safety checks Dialyzer # [id number] Tubing # [id number] All lines secured, saline line double clamped, [...] - 08/09/2012 3:51 PM CDT [address] furnace mechanic notified of need for sitter up on [...] 08/08/2012 5:00 PM CDT Report given to scientific systems analyst. BGM 70 in PACU. 240cc of apple [...] Fuentes MD - 08/14/2012 11:09 AM CST SE WEIGHER OR Anesthesia - Michele Fuentes MD - 08/14/2012 11:09 AM CST SE WEIGHER documented in this encounter Miscellaneous Notes Initial Assessments - Michele Fuentes MD - 08/11/2012 2:23 PM CDT SE WEIGHER Initial Assessments - Michele Fuentes MD - 08/11/2012 2:23 PM CDT SE WEIGHER Plan of Care - Mirlande Ruth - 08/10/2012 3:28 PM CDT At discharge I called Thelma to discuss discharge instructions. She verbalized good understanding ofall the instructions and particularly pt's medication changes. Pt left unit in good spirits via wheelchair with milk tanker driver. Plan of Care - Rose Marie Johnson RN - 08/10/2012 5:07 AM CDT Problem: IP GENERAL POC-ADULT,OB,BEHAVIORAL FVCPM Goal: Individualization/Patient-Specific Goal (Adult,OB,Behavioral The patient and/or their direct customer service representative will achieve their patient-specific goals related [...] d/t hemodialysis. Provider Notification - Sierra Gurrola [facility] - 08/09/2012 10:30 PM CDT JOSE Taylor PA-C @ 22:30 on 08/09--No warfarin today. Give warfarin 7.5 mg tomorrow at 18:00 on 08/10/12. Emma Taylor PA-C will review INR in a.m. And readdress warfarin if needed. He is aware INR = 2.26 today. Sierra Gurrola [facility] Op Note - Rober Saravia MD - [...] embolectomy (D-10). SURGEON: Rober Saravia MD 1ST BARK PEELER: EMMA TAYLOR PA-C ANESTHESIA: General LMA. PREOPERATIVE MEDICATIONS: Ancef 2 grams IV. INDICATIONS: Julio Cesar Kayleigh is a 47-year-old patient on chronic hemodialysis [...] Name: JULIO CESAR SANDHU MRN: [id number] Account: [id number] : 1965 Procedure Date: 08/09/2012 Document: [id number] Brief Op Note - Emma Taylor PA-C - 08/09/2012 2:16 PM CDT [facility] Vascular Surgery Brief Operative Note Pre-operative diagnosis: [...] procedure are i n the results section. THROMBECTOMY, LOWER 08/09/2012 10:15 RENAL FAILURE EXTREMITY AM CDT CREATION, BYPASS, 08/09/2012 10:15 RENAL FAILURE ARTERIAL, FEMORAL TO AM CDT POPLITEAL, USING GRAFT GLUCOSE BY METER Routine 08/09/2012 9:33 AM [...] Signature Hemoglobin 9.7 (L) 13.3 - 17.7 [place] g/dL [facility] Specimen Anatomical Collection Method Collection Time Receive d Time (Source) Location / / Volume Laterality Blood specimen 08/10/2012 8:10 AM 012 8:26 (specimen) CDT AM CDT Alvaro Cyr MD LAB - BLOOD ORDERABLES Performing Organization Address City/State/ZIP Code Phon e Number M [facility] [address] [place] [address] [facility] Renal panel (08/10/2012 8:10 AM CDT) Component Value Ref Test Analysis Performed At [facility] gist Range Method Time Signature Sodium Unsatisfactory specimen - hemolyzed 133 - [facility] NOTIFIED DIALYSIS AT 0840 144 [facility] mmol/L [facility] Potassium Unsatisfactory specimen - hemolyzed 3.4 - [facility] NOTIFIED D[facility] AT 0840 5.3 [facility] mmol/L [facility] Chloride Unsatisfactory specimen - hemolyzed 94 - 109 [facility] NOTIFIED DIALYS[facility] AT 0840 mmol/L [facility] Carbon Dioxide Unsatisfactory specimen - hemolyzed 20 - 32 [facility] NOTIFIED [facility] AT 0840 mmol/L [facility] Anion Gap Unsatisfactory specimen - hemolyzed 6 - 17 [facility] NOTIFIED [facility] AT 0840 mmol/L [facility] Glucose Unsatisfactory specimen - hemolyzed 60 - 99 [facility] NOTIFIED [facility]IAL[facility] AT 0840 mg/dL [facility] Urea Nitrogen Unsatisfactory specimen - hemolyzed 5 - 24 [facility] NOTIFIED [facility] AT 0840 mg/dL [facility] Creatinine Unsatisfactory specimen - hemolyzed 0.66 - [facility] NOTIFIED DIALYS[facility] AT 0840 1.25 [facility] mg/dL [facility] GFR Estimate Unsatisfactory specimen - hemolyzed >60 [facility] NOTIFIED [facility] AT 0840 mL/min/1 [facility] .7m2 [facility] GFR Estimate Unsatisfactory specimen - hemolyzed >60 [facility] If Black NOTIFIED DIALYSIS AT 0840 mL/min/[address] LAB Calcium Unsatisfactory specimen - hemolyzed 8.5 - [facility] NOTIFIED DIALYSIS AT 0840 10.4 [place] [facility] mg/dL [facility] Phosphorus Unsatisfactory specimen - hemolyzed 2.5 - [facility] NOTIFIED DIALYSIS AT 0840 4.5 [place] mg/dL [facility] Albumin Unsatisfactory specimen - hemolyzed 3.9 - [facility] NOTIFIED DIALYSIS AT 0840 5.1 g/dL [facility] Specimen Anatomical Collection Method Collection Time Receive d Time (Source) Location / / Volume Laterality Blood specimen 08/10/2012 8:10 AM 012 8:26 (specimen) CDT AM CDT Alvaro Cyr MD LAB - BLOOD ORDERABLES Performing Organization Address City/State/ZIP Code Phon e Number M [facility] [address] [phone] [facility] LAB (ABNORMAL) Glucose (08/10/2012 6:20 AM CDT) athologist Signature Glucose 109 (H) 60 - 99 [place] mg/dL [facility] Specimen Anatomical Collection Method Collection Time Receive d Time (Source) Location / / Volume Laterality Blood specimen 08/10/2012 6:20 AM 012 6:59 (specimen) CDT AM CDT Michele Fuentes MD LAB - BLOOD ORDERABLES Performing Organization Address City/State/ZIP Code Phon e Number M [facility] [phone] [place] [address] LAB (ABNORMAL) INR (08/10/2012 6:20 AM CDT) athologist Signature INR 2.21 (H) 0.86 - 1.14 [facility] LAB Specimen Anatomical Collection Method Collection Time Receive d Time (Source) Location / / Volume Laterality Blood specimen 08/10/2012 6:20 AM 012 6:59 (specimen) CDT AM CDT Emma Lynch PA-C LAB - BLOOD ORDERABLES Performing Organization Address City/State/ZIP Code Phon e Number M [facility] [address] [phone] [id number] [facility] Glucose by meter (08/09/2012 7:40 PM [...] Signature Glucose 111 (H) 60 - 99 [place] mg/dL [facility] Specimen Anatomical Collection Method Collection Time Receive d Time (Source) Location / / Volume Laterality Blood specimen 08/09/2012 7:40 PM 012 7:46 (specimen) CDT PM CDT Micheel Fuentes MD LAB - BLOOD ORDERABLES Performing Organization Address City/State/ZIP Code Phon e Number M [facility] [address] [place] [address] [facility] Glucose by meter (08/09/2012 7:16 PM CDT) P athologist Signature Glucose 86 60 - 99 POINT OF CARE mg/dL TEST, GLUCOSE Specimen Anatomical Collection Method Collection Time Receive d Time (Source) Location / / Volume Laterality 08/09/2012 7:16 PM 2 7:20 CDT PM CDT Michele DEAN - BEXIANG POCT Performing Organization Address [...] PM 2 7:20 CDT PM CDT Michele DEAN - BEAKER POCT Performing Organization Address [...] PM 2 6:55 CDT PM CDT Michele Ahmad Fuentes MD LAB - BEAKER POCT Performing [...] PM 2 6:15 CDT PM CDT Michele Fuentes MD LAB [...] PM 2 3:40 CDT PM CDT Michele Fuentes MD LAB - DAVID POCT Performing Organization Address City/[facility]/ZIP Code Phon e Number FV POINT [...] DEAN - DAVID POCT Performing Organization Address City/[facility]/ZIP Code Phon e Number FV POINT OF CARE TEST, GLUCOSE POINT OF CARE TEST, GLUCOSE Glucose by meter (08/09/2012 9:33 AM CDT) P athologist Signature Glucose 96 60 - 99 POINT OF CARE mg/dL TEST, GLUCOSE Specimen Anatomical Collection Method Collection Time Receive d Time (Source) Location / / Volume Laterality 08/09/2012 9:33 AM 2 9:35 CDT AM CDT Michele DEAN - BEXIANG POCT Performing Organization Address City/[facility]/ZIP Code Phon e Number FV POINT [...] Signature INR 2.26 (H) 0.86 - 1.14 [facility] LAB Specimen Anatomical Collection Method Collection Time Receive d Time (Source) Location / / Volume Laterality Blood specimen 08/09/2012 5:56 AM 012 6:04 (specimen) CDT AM CDT Alvaro Cyr MD LAB - BLOOD ORDERABLES Performing Organization Address City/[facility]/ZIP Code Phon e Number M [facility] [address] [phone] [facility] LAB (ABNORMAL) Hemoglobin (08/09/2012 5:56 AM CDT) athologist Signature Hemoglobin 9.3 (L) 13.3 - 17.7 [place] g/dL [facility] Specimen Anatomical Collection Method Collection Time Receive d Time (Source) Location / / Volume Laterality Blood specimen 08/09/2012 5:56 AM 012 6:04 (specimen) CDT AM CDT Alvaro Cyr MD LAB - BLOOD ORDERABLES Performing Organization Address City/[facility]/ZIP Code Phon e Number M [facility] [address] [place] [address] [facility] Potassium (08/09/2012 5:56 AM CDT) athologist Signature Potassium 5.1 3.4 - 5.3 [place] mmol/L [facility] Specimen Anatomical Collection Method Collection Time Receive d Time (Source) Location / / Volume Laterality Blood specimen 08/09/2012 5:56 AM 012 6:04 (specimen) CDT AM CDT Alvaro Cyr MD LAB - BLOOD ORDERABLES Performing Organization Address City/State/ZIP Code Phon e Number M [facility] [address] [place] [address] [facility] ABO/Rh type and screen (08/09/2012 5:36 AM CDT) Patholo gist Method Time Signature ABO Canceled, [place] Test credited [facility] RH(D) Canceled, [place] Test credited [facility] Antibody Canceled, [place] Screen Test credited [facility] Specimen 08/12/2012 [place] Expires [facility] Blood Bank Duplicate [place] Comment request [facility] Specimen Anatomical Collection Method Collection Time Receive d Time (Source) Location / / Volume Laterality Blood specimen 08/09/2012 5:36 AM 012 6:05 (specimen) CDT AM CDT Alvaro Cyr MD LAB - BLOOD BANK TEST ORDER Performing Organization Address City/State/ZIP Code Phon e Number M [facility] [address] [place] [address] [facility] LAB (ABNORMAL) Glucose by meter (08/08/2012 6:26 [...] IVC . Over the wire, a 16 Afghan peel-away sheath was placed. Approximately 15 cm laterally and inferi yonatan, a small skin incision was made. A tunnel was created from the skin incision to the peel-away sheath. A 15.5 Afghan 50 cm di alysis catheter was then [...] monitored by radiology nursing staff under my summere rvision and remained stable throughout the study. [...] METER Blood component (08/08/2012 3:08 PM CDT) [facility] Method Time Signature Unit Number [id number] [facility] Blood Red Blood [place] Component Cells [facility] LAB Reduced Status of Released to [place] Unit care unit [facility] Specimen Anatomical Collection Method Collection Time Receive d Time (Source) Location / / Volume Laterality 08/08/2012 3:08 PM 2 3:10 CDT PM CDT Michele Fuentes MD LABORATORY Performing Organization Address City/State/ZIP Code Phon e Number M [facility] [address] [address] [facility] Blood component (08/08/2012 3:08 PM CDT) [facility] Method Time Signature Unit Number [id number] [facility] Blood Red Blood [place] Component Cells [facility] LAB Reduced Status of Released to [place] Unit care unit [facility] Specimen Anatomical Collection Method Collection Time Receive d Time (Source) Location / / Volume Laterality 08/08/2012 3:08 PM 2 3:10 CDT PM CDT Michele Fuentes MD LABORATORY Performing Organization Address City/State/ZIP Code Phon e Number M [facility] [address] [place] [address] [facility] ABO/Rh type and screen (08/08/2012 3:08 PM CDT) Patholo gist Method Time Signature Units Ordered 2 [facility] ABO O [facility] RH(D) Pos [facility] Antibody Screen Neg [facility] LAB Specimen 08/11/2012 [facility] LAB Crossmatch Red Blood [facility] LAB Specimen Anatomical Collection Method Collection Time Receive d Time (Source) Location / / Volume Laterality 08/08/2012 3:08 PM 2 3:10 CDT PM CDT Michele Fuentes MD LAB - BLOOD BANK TEST ORDER Performing Organization Address City/State/ZIP Code Phon e Number M [facility] [address] [place] [address] [facility] EKG 12-lead, tracing only (08/08/2012 1:53 PM CDT) Component Value Ref Range Test Analysis Performed Pathologis t Method Time At Signature Ventricular Rate 72 BPM RADIOLOGY RESULTS Atrial Rate 72 BPM RADIOLOGY RESULTS UT Interval 182 ms RADIOLOGY RESULTS QRS Duration 88 ms RADIOLOGY RESULTS QT 394 ms RADIOLOGY RESULTS QTc 431 ms RADIOLOGY RESULTS P [place] 52 degrees RADIOLOGY RESULTS R AXIS 11 degrees RADIOLOGY RESULTS T [place] 50 degrees RADIOLOGY RESULTS Interpretation Sinus rhythm [...] Signature INR 2.37 (H) 0.86 - 1.14 [facility] LAB Specimen Anatomical Collection Method Collection Time Receive d Time (Source) Location / / Volume Laterality Blood specimen 08/08/2012 12:55 2 1:01 (specimen) PM CDT PM CDT Alvaro Cyr MD LAB - BLOOD ORDERABLES Performing Organization Address City/[facility]/ZIP Code Phon e Number M [facility] [address] [place] [address] [facility] LAB (ABNORMAL) CBC with platelets (08/08/2012 12:55 PM CDT) Analysis Performed At Patho logist Time Signature WBC 4.1 4.0 - 11.0 [place] 10e9/L [facility] RBC Count 2.84 (L) 4.4 - 5.9 [place] 10e12/L [facility] Hemoglobin 7.7 (L) 13.3 - [place] 17.7 g/dL [facility] Hematocrit 25.0 (L) 40.0 - [place] 53.0 % [facility] MCV 88 78 - 100 [place] fl [facility] MCH 27.1 26.5 - [place] 33.0 pg [facility] MCHC 30.8 (L) 31.5 - [place] 36.5 g/dL [facility] RDW 15.6 (H) 10.0 - [place] 15.0 % [facility] Platelet Count 145 (L) 150 - 450 [place] 10e9/L [facility] Specimen Anatomical Collection Method Collection Time Receive d Time (Source) Location / / Volume Laterality Blood specimen 08/08/2012 12:55 2 1:01 (specimen) PM CDT PM CDT Alvaro Cyr MD LAB - BLOOD ORDERABLES Performing Organization Address City/State/ZIP Code Phon e Number M [facility] [address] [place] [address] [facility] LAB (ABNORMAL) Basic metabolic panel (08/08/2012 12:55 PM CDT) [facility] Method Time Signature Sodium 139 133 - 144 [facility] mmol/L [facility] Potassium 5.9 (H) 3.4 - 5.3 [place] mmol/L [facility] Chloride 98 94 - 109 [facility] mmol/L [facility] Carbon Dioxide 27 20 - 32 [facility] mmol/L [facility] Anion Gap 14 6 - 17 [place] mmol/L [facility] Glucose 74 60 - 99 [place] mg/dL [facility] Urea Nitrogen 77 (H) 5 - 24 [place] mg/dL [facility] Creatinine 11.87 (H) 0.66 - [facility] 1.25 mg/dL [facility] GFR Estimate 5 (L) >60 [place] mL/min/1.[address] LAB GFR Estimate If 6 (L) >60 [place] Black mL/min/1.[address] LAB Calcium 9.5 8.5 - 10.4 [place] mg/dL [facility] Specimen Anatomical Collection Method Collection Time Receive d Time (Source) Location / / Volume Laterality Blood specimen 08/08/2012 12:55 2 1:01 (specimen) PM CDT PM CDT Alvaro Cyr MD LAB - BLOOD ORDERABLES Performing Organization Address City/State/ZIP Code Phon e Number M [facility] [address] [place] [place] [phone] [facility] - HIM ECG Scan (08/08/2012) Narrative This result has an attachment that is no t available. Zuleyka Olson ECG ORDERABLES documented in this encounter Visit Diagnoses Diagnosis ESRF (end stage renal failure) (H) - [facility] End stage renal disease A-V fistula (H) Arteriovenous fistula, acquired Renal dialysis device, implant, or graft complication Other complications due to renal dialysi s device, implant, and graft End stage renal disease (H) End stage [...] at 0845, Until Tue08/09/12 at 1434 B dwtypfh-K-vmkqx acid (NEPHROCAPS) capsule 1 Given 12:36 PM [...] has reviewed/ordered hemoglobin within the required timeline HYDROmorphone (DILAUDID) injection 0.2-0 .4 mg Given [...] cumulative dose = 2 mg , PACU lisinopril (PRINIVIL,ZESTRIL) tablet 40 mg Given 08/09/2012 [...] Scheduled Medication Order 08/08/2012 08/09/2012 08/10/2012 B ctmduhp-E-iwiho acid (NEPHROCAPS) capsule 1 mg (CANC ELED) [...] (CANCELED) 2 251 (Given - Provider: Buffy Montiel RN) 0829 (Auto Hold - Provider: Orders Gener ic Provider - Reason: Transfer to a procedural area)1200 (Automatically Held - Provider: Orders Generic Provider)1728 (Unhold - Provider: Orders Generic Provider)1831 (Given - Provider: Sabrina Alberto RN) 1039 (Given - Provider: Josue Byrnes, RN)1348 (Given - Provider: Tahmina Bah - Comment: given with meal.) 1,334 mg, Oral, 3 TIMES DAILY WITH MEALS , First dose on Tue08/08/12 at 1830, Best if given with meals. Take with meals. 1833 (Not G iven - Provider: Sabrina Alberto RN - Reason: Patient not available) ceFAZolin (ANCEF) 1 g vial to attach to IVPB (COMPLETED) 1103 (Given - Provider: Inocencia Carvalho, PRODUCT PROMOTER RETAIL PET VISITING PROFESSOR) 2 g, Intravenous, for 30 Minutes, PRE-OP /PRE-PROCEDURE, For 1 dose, Pre-procedure dextrose 50 % solution 25 mL (COMPLETED) 1445 (Given - Provider: Criss Moreno RN - Comment: bg 96) 25 mL, Intravenous, ONCE, Tue08/09/12 a t 1530, For 1 dose, Per Dr Hernandez, Post-procedure doxercalciferol (HECTOROL) injection 1.5 mcg (CANCELED ) 191 (Given - Provider: Stacy Del Rio RN - Comment: given on dialysis) 0829 (Auto Hold - Provider: Orders Generic Provider - Reason: Transfer to a procedural area)1728 (Unhold - Provider: Orders Generic Provider) 1007 (Given - Provider: Josue Byrnes, LINDA) 1.5 mcg, Intravenous, SEE ADMIN INSTRUCT IONS, Given during each dialysis (per request) epoetin mauricio (EPOGEN,PROCRIT) injection 10,000 Units ( COMPLETED) 191 (Given - Provider: Stacy Del Rio, LINDA - Comment: given on dialysis) 10,000 Units, Intravenous, ONCE, 08/10 at 1615, For 1 dose, Given during each dialysis (per request) , Dialysis epoetin mauricio (EPOGEN,PROCRIT) injection 10,000 Units (COMPLETED) 1008 (Given - Provider: Josue Byrnes, LINDA) 10,000 Units, Intravenous, ONCE, Padmaja 08/10/12 at 0715, For 1 dose, Given during each dialysis (per request) , Dialysis lisinopril (PRINIVIL,ZESTRIL) tablet 40 mg (CANCELED) 225 (Given - Provider: Buffy Montiel RN) 0829 (Auto Hold - Provider: Orders Gener ic Provider - Reason: Transfer to a procedural area)172 (Unhold - Provider: Orders Generic Provider)183 (Given - Provider: Sabrina Alberto RN) 1336 (Not Given - Provider: Mirlande Ruth - Reason: Other - Comment: reschedule to bedtime) 40 mg, Oral, DAILY, First dose on Tue at 1830, Hold for SBP < 100 Hold on days of dialysis metoprolol (LOPRESSOR) tablet 100 mg (CANCELED) 2251 ( Given - Provider: Buffy Montiel RN) 0829 (Auto Hold - Provider: Orders Gener ic Provider - Reason: Transfer to a procedural area)0909 (Given - Provider: Arianna Arango RN - Comment: ok'd per Dr Olson)172 (Unhold - Provider: Orders Generic Provider) 1337 (Not Given - Provider: Mirlande Ruth - Reason: Other - Comment: rescheduled) 100 mg, Oral, 2 TIMES DAILY, First dose on Tue08/08/12 at 2000, Hold for SBP < 100 or HR < 60 2116 (Given - Provider: Jayne isbell RN) midazolam (VERSED) injection 1 mg (COMPLETED) 1530 (Given - Provider: Criss Moreno RN) 1 mg, Intravenous, ONCE, Tue08/09/12 at 1630, For 1 dose, PACU senna-docusate (SENOKOT-S;PERICOLACE) 8. 6-50 MG per tablet 1-2 tablet (CANCELED) 2117 (Given - Provider: Jayne isbell RN) 1347 (Given - Provider: Tahmina Bah) 1-2 tablet, Oral, 2 TIMES DAILY, First d ose on Tue08/09/12 at 2100, Start with 1 tablet PO BID, If no bowel movement in 24 hours, increase to 2 tablets po BID. Hold for loose stools. Preferred agent fo r constipation related to opioids., Post-procedure simvastatin (ZOCOR) tablet 40 mg (CANCELED) 2252 (Give n - Provider: Buffy Montiel, LINDA) 0829 (Auto Hold - Provider: Orders Gener ic Provider - Reason: Transfer to a procedural area)1728 (Unhold - Provider: Orders Generic Provider)2118 (Given - Provider: Jayne Kellogg, LINDA) 40 mg, Oral, EVERY EVENING, First dose on Tue08/08/12 at 2000 sodium chloride 0.9 % BOLUS 250 mL (COMPLETED) 1835 (N ew Bag - Provider: Stacy Del Rio, LINDA - Comment: given as prime on dialysis) Hemodialysis Machine, 250 mL, ONCE, e 08/08/12 at 1615, For 1 dose, For Dialyzer Prime. (In Dialyzer), Dialysis sodium chloride 0.9 % BOLUS 250 mL (COMPLETED) 1202 (New Bag - Provider: Josue Byrnes RN - Comment: stringing machine tender and rinseback) Hemodialysis Machine, 250 mL, ONCE, Padmaja 08/10/12 at 0715, For 1 dose, For Dialyzer Prime. (In Dialyzer), Dialysis warfarin (COUMADIN) tablet 5 mg 5 mg, Oral, ONCE AT 6PM, Padmaja 08/10/12 at 1800, For 1 dose, Dispos e [...] Starting Tue08/09/12 at 1740, Hold while on ROVING FRAME TENDER or with regular IV opioid dosing., Post-procedure [...] 61% (CANCELED) 1601 (Given - Provider: Michele Fuenets MD) PRN, Starting Tue08/08/12 at 1601, Supp [...] Intra-procedure documented in this encounter Care Teams Wound Care Specialist Relationship Specialty Start Date End Date Preet Huff PCP - General 06/24/11 documented as of this encounter
--- OUTSIDE RECORDS SUMMARY | 2022-09-01 20:24 | XMS_ITS | Encounter Summary ---
:1965 Author Organization [place] Address [facility] [place] [address] Care Team Providers Name Role Phone Preet Huff Primary Care Provider Encounter Details Date Type Department Care Team Description 08/08/2012 Orders Only [facility] Carolyn Garcia ESRF (en d stage renal [place] Interventional Nelly RN failure) (H) (Primary Radiology [facility]ASCULAR [facility] Dx) [address] [phone] [place], [place] [id number] Social History Tobacco Use Types Packs/Day Years [...] disease documented in this encounter Care Teams Shotblaster Relationship Specialty Start Date End Date Preet Huff PCP - General 06/24/11 documented as of this encounter
--- OUTSIDE RECORDS SUMMARY | 2022-09-01 20:24 | XMS_ITS | Encounter Summary ---
:1965 Author Organization [place] Address [facility] [place] [address] Care Team Providers Name Role Phone Preet Huff Primary Care Provider Encounter Details Date Type Department Care Team Description 08/[facility] Inter[facility] Radio logy RN [address] [place] [address] [place] [phone] [id number] Social History Tobacco Use Types Packs/Day Years [...] on filedocumented in this encounter Care Teams Osteopathic Resident Relationship Specialty Start Date End Date Preet Huff PCP - General 06/24/11 documented as of this encounter
--- OUTSIDE RECORDS SUMMARY | 2022-09-01 20:24 | XMS_ITS | Encounter Summary ---
:1965 Author Organization [place] Address [address] [facility] [place] [address] Care Team Providers Name Role Phone HuffPreet cool Primary Care Provider Encounter Details Date Type Department Care Team Description 08/09/2012 Surgery [facility] Rober Saravia REDO RIG HT PROFUNDUS [place] PeriOP MD Preet FEMORAL TO COMMON FEMORAL Services [address] ACCESS GRAFT WITH PTFE [address] (POLY T[address] [place] [address] GRAFT), [place] [phone] FEMORAL VEIN STENT, GRAFT [phone] EMBOLECTO MY Surgery Details Date/Time Status Location OR Service Patient Class Case Case Trauma Class Type Case? 08/09/12 10:10 Posted OR OR 41 General Inpatient AM Panel 1 Procedure LRB Anes Op Region Wound Class Commen ts REDO RIGHT PROFUNDUS Right General Groin I-Clean REDO RIGHT PROFUNDUS FEMORAL TO COMMON FEMORAL FEMORAL TO COMMON ACCESS GRAFT WITH PTFE FE MORAL ACCESS GRAFT (POLY TETRA FLOROETHELINE WITH PTFE (POLY TETRA GRAFT), REMOVAL COMMON FL OROETHELINE GRAFT), FEMORAL VEIN STENT, GRAFT REMOVAL COMMON FEMORAL EMBOLECTOMY VEIN STENT, G RAFT EMBOLECTOMY THROMBECTOMY, LOWER Right General Leg I-Clean EXTREMITY Surgeon Surgeon Role Service Panel Rober Saravia MD Primary General 1 Emma Taylor V, PACadeC Assisting Movie Editor Authorization 1 documented in this encounter Social History Tobacco Use Types Packs/Day Years Used Date Smoking Tobacco: Never Smokeless Tobacco: Never Alcohol Use Standard Drinks/Week Comments No 0 (1 standard drink = 0.6 oz pure alcoho l) Sex Assigned at Date Recorded Not on file documented as of this encounter Last Filed Vital Signs Vital Sign Reading Time Taken Comments Blood Pressure 149/79 08/09/2012 9:09 AM CDT Pulse 74 08/09/2012 9:09 AM CDT Temperature 37 ??C (98.6 ??F) 08/09/2012 7:00 AM CDT Respiratory Rate 16 08/09/2012 7:00 AM CDT Oxygen Saturation 99% 08/09/2012 7:00 AM CDT Inhaled Oxygen Concentration - - [...] COURSE: Julio Cesar Sandhu is a 47-year-old -[place] male with end- stage renal disease coming [...] His INRs will be monitored in the [facility]. Dr. Carballo will continue to be his cosmetic manager there and will manage the warfarin. Revised account 08/11/2012 verna ALVARO CYR MD MT: #[id number] Name: JULIO CESAR SANDHU Account: [id number] : 1965 Admit Date: Discharge Date: 08/10/2012 Document: [id number] documented in this encounter Discharge Instructions Discharge [...] to hold the gauze in place. ? -Donie may hold your incision closed. You might [...] or a colonoscopy. Other: Questions or concerns? [facility]: [phone] ([facility]) documented in this encounter Medications at Time of Discharge Medication Sig Dispensed Refills Start Date End Date b cwjiyaz-K-ktccf acid Take 1 capsule by 0 03/04/2016 [...] Fuentes MD - 08/29/2012 12:35 AM CST THOLOGY TEACHER Michele Fuentes MD - 08/15/2012 9:38 AM CST Josue Stuart RN - 08/10/2012 2:21 PM CDT POTASSIUM [...] alfred mendiola student nurse. See flowsheet in [employer] for run details. Access worked great at [...] uses and is covered by his MA. SULY called [facility] [employer] [facility] [employer] -they are [...] 3 mL Intravenous Q8H ??? HYDROmorphone Intravenous FISHER OYSTER ??? senna-docusate 1-2 tablet Oral BID ??? dextrose 25 mL Intravenous Once ??? midazolam 1 mg Intravenous Once ??? warfarin 7.5 mg Oral ONCE at 18:00 ??? warfarin-No DOSE today 1 each Does not apply no dose today (warfarin) ??? doxercalciferol 1.5 mcg Intravenous See Admin Instructions ??? lisinopril 40 mg Oral Daily ??? metoprolol 100 mg Oral BID ??? B vpmvopn-X-ualsb acid 1 capsule Oral Daily ??? calcium [...] vu Physical Exam: Vitals were reviewed in [facility] Wt Readings from Last 3 Encounters: [...] medications, labs and imaging. ALVARO CYR MD [facility] - Nephrology [phone] Rober Saravia MD - 08/10/2012 8:29 AM [...] = 62 ptis clear liquid diet, given Lena juice given, dines pain, BS present, right [...] Pt Dines pain. Will continue to monitor. AKT Muna Justin RN - 08/09/2012 8:51 AM [...] This is his [facility] trip to [facility] this week for access difficulties. 07/31 [...] 08/05/12 71.7 kg (158 lb 1.1 oz) 10/22/12 74.844 kg (165 lb) 05/04/12 71.5 kg [...] bleeding Labs: BMP Lab 08/08/12 1255 08/05/12 0808/04/12 0800 08/03/12 1305 NA 139 136 -- [...] vu Physical Exam: Vitals were reviewed in [facility] Wt Readings from Last 3 Encounters: [...] medications, labs and imaging. ALVARO CYR MD [facility] - Nephrology [phone] Stacy Del Rio RN - 08/08/2012 5:21 PM CDT PRE PROCEDURE DIALYSIS NOTE Pre treatment report received from Criss Booth front elevator operatorgold frame assembler machine safety checks Dialyzer # [id number] Tubing # [id number] All lines secured, saline line double clamped, [...] - 08/09/2012 3:51 PM CDT Station 33 association executive notified of need for sitter up on [...] 08/08/2012 5:00 PM CDT Report given to insurance policy issue clerk. BGM 70 in PACU. 240cc of apple [...] Fuentes MD - 08/14/2012 11:09 AM CST THOLOGY TEACHER OR Anesthesia - Michele Fuentes MD - 08/14/2012 11:09 AM CST THOLOGY TEACHER documented in this encounter Miscellaneous Notes Initial Assessments - Michele Fuentes MD - 08/11/2012 2:23 PM CDT THOLOGY TEACHER Initial Assessments - Michele Fuentes MD - 08/11/2012 2:23 PM CDT THOLOGY TEACHER Plan of Care - Mirlande Ruth - 08/10/2012 3:28 PM CDT At discharge I called Thelma to discuss discharge instructions. She verbalized good understanding ofall the instructions and particularly pt's medication changes. Pt left unit in good spirits via wheelchair with delivery motorcycle driver. Plan of Care - Rose Marie Johnson, RN - 08/10/2012 5:07 AM CDT Problem: IP GENERAL POC-ADULT,OB,BEHAVIORAL FVCPM Goal: Individualization/Patient-Specific Goal (Adult,OB,Behavioral The patient and/or their safety representative will achieve their patient-specific goals related [...] d/t hemodialysis. Provider Notification - Sierra Gurrola Richi - 08/09/2012 10:30 PM CDT JOSE Taylor [...] embolectomy (D-10). SURGEON: Rober Saravia MD 1ST PROCESS TECH: EMMA TAYLOR PA-C ANESTHESIA: General LMA. PREOPERATIVE [...] LOSS: 100 cc. ROBER SARAVIA MD MT: [id number] Name: JULIO CESAR SANDHU Account: [id number] : 1965 Procedure Date: 08/09/2012 Document: [id number] Brief Op Note - Emma Taylor PA-C - 08/09/2012 2:16 PM CDT [facility] Vascular Surgery Brief Operative Note Pre-operative diagnosis: [...] the results section. EKG 12-LEAD, TRACING Routine 08/08/2012 1:53 PM R esults for this ONLY CDT procedure are i n the results section. INR STAT 08/08/2012 12:55 Results for this PM CDT procedure are i n the results section. BASIC METABOLIC PANEL STAT 08/08/2012 12:55 Re sults for this PM CDT procedure are i n the results section. CBC WITH PLATELETS STAT 08/08/2012 12:55 Resul ts for this PM CDT procedure are i n the results section. HIM ECG SCAN Routine 08/08/2012 documented in this encounter Results (ABNORMAL) Hemoglobin (08/10/2012 8:10 AM CDT) P athologist Signature Hemoglobin 9.7 (L) 13.3 - 17.7 [facility] g/dL [facility] Specimen Anatomical Collection Method Collection Time Receive d Time (Source) Location / / Volume Laterality Blood specimen 08/10/2012 8:10 AM 012 8:26 (specimen) CDT AM CDT Alvaro Cyr MD LAB - BLOOD ORDERABLES Performing Organization Address City/State/ZIP Code Phon e Number [facility] [address], [place] [address] [facility] Renal panel (08/10/2012 8:10 AM CDT) Component Value Ref Test Analysis Performed At [facility] gist Range Method Time Signature Sodium Unsatisfactory specimen - hemolyzed 133 - [facility] NOT[facility]IED [facility]YS[facility] 08[address] [facility] mmol/L [facility] Potassium Unsatisfactory specimen - hemolyzed 3.4 - [facility] NOT[facility] AT 0840 5.3 [facility] mmol/L [facility] Chloride Unsatisfactory specimen - hemolyzed 94 - 109 [facility] NOTIFIED DIALYSIS AT 0840 mmol/L [facility] Carbon Dioxide Unsatisfactory specimen - hemolyzed 20 - 32 [facility] NOTIFIED DIALYS[facility] AT 0840 mmol/L [facility] Anion Gap Unsatisfactory specimen - hemolyzed 6 - 17 [facility] NOTIFIED [facility]IALYS[facility] AT 0840 mmol/L [facility] Glucose Unsatisfactory specimen - hemolyzed 60 - 99 [facility] NOTIFIED DIALYSIS AT 0840 mg/dL [facility] Urea Nitrogen Unsatisfactory specimen - hemolyzed 5 - 24 [facility] NOTIFIED [facility] AT 0840 mg/dL [facility] Creatinine Unsatisfactory specimen - hemolyzed 0.66 - [facility] NOTIFIED DIALYSIS AT 0840 1.25 SOUT [place] mg/dL [facility] GFR Estimate Unsatisfactory specimen - hemolyzed >60 [facility] NOTIFIED [facility]IAL[facility] AT 0840 mL/min/1 [facility] .7m2 [facility] GFR Estimate Unsatisfactory specimen - hemolyzed >60 [facility] If Black NOTIFIED DIALYSIS AT 0840 mL/min/1 [facility] .7m2 [facility] Calcium Unsatisfactory specimen - hemolyzed 8.5 - [facility] NOTIFIED DIALYSIS AT 0840 10.4 [place]OUT [place] mg/dL [facility] Phosphorus Unsatisfactory specimen - hemolyzed 2.5 - [facility] NOTIFIED [facility] AT 0840 4.5 [facility] mg/dL [facility] Albumin Unsatisfactory specimen - hemolyzed 3.9 - [facility] NOTIFIED DIALYSIS AT 0840 5.1 g/dL [facility] Specimen Anatomical Collection Method Collection Time Receive d Time (Source) Location / / Volume Laterality Blood specimen 08/10/2012 8:10 AM 012 8:26 (specimen) CDT AM CDT Alvaro Cyr MD LAB - BLOOD ORDERABLES Performing Organization Address City/State/ZIP Code Phon e Number [facility] [address] [place] [address] [phone] [facility] (ABNORMAL) Glucose (08/10/2012 6:20 AM CDT) P athologist Signature Glucose 109 (H) 60 - 99 [place] mg/dL [facility] Specimen Anatomical Collection Method Collection Time Receive d Time (Source) Location / / Volume Laterality Blood specimen 08/10/2012 6:20 AM 012 6:59 (specimen) CDT AM CDT Michele Fuentes MD LAB - BLOOD ORDERABLES Performing Organization Address City/State/ZIP Code Phon e Number [facility] [address] [place] [address] [facility] (ABNORMAL) INR (08/10/2012 6:20 AM CDT) P athologist Signature INR 2.21 (H) 0.86 - 1.14 [facility] Specimen Anatomical Collection Method Collection Time Receive d Time (Source) Location / / Volume Laterality Blood specimen 08/10/2012 6:20 AM 012 6:59 (specimen) CDT AM CDT Emma Lynch PA-C LAB - BLOOD ORDERABLES Performing Organization Address City/State/ZIP Code Phon e Number [facility] [address] [place] [address] [facility] Glucose by meter (08/09/2012 7:40 PM CDT) P athologist Signature Glucose 76 60 - 99 [...] Signature Glucose 111 (H) 60 - 99 [place] mg/dL [facility] Specimen Anatomical Collection Method Collection Time Receive d Time (Source) Location / / Volume Laterality Blood specimen 08/09/2012 7:40 PM 012 7:46 (specimen) CDT PM CDT Michele Fuentes MD LAB - BLOOD ORDERABLES Performing Organization Address City/[facility]/ZIP Code Phon e Number [facility] [address] [place] [address] [facility] Glucose by meter (08/09/2012 7:16 PM CDT) P athologist Signature Glucose 86 60 - 99 POINT OF CARE mg/dL TEST, GLUCOSE Specimen Anatomical Collection Method Collection Time Receive d Time (Source) Location / / Volume Laterality 08/09/2012 7:16 PM 2 7:20 CDT PM CDT Michele Fuentes MD LAB - BEAKER POCT Performing Organization Address City/[facility]/ZIP Code Phon e Number FV POINT [...] LAB - BEAKER POCT Performing Organization Address City/[facility]/ZIP Code Phon e Number FV POINT [...] LAB - BEXIANG POCT Performing Organization Address [facility] Phon e Number FV POINT OF CARE TEST, GLUCOSE POINT OF CARE TEST, GLUCOSE (ABNORMAL) Glucose by meter (08/09/2012 6:37 PM CDT) P athologist Signature Glucose 58 (L) 60 - 99 POINT OF CARE mg/dL TEST, GLUCOSE Specimen Anatomical Collection Method Collection Time Receive d Time (Source) Location / / Volume Laterality 08/09/2012 6:37 PM 2 6:45 CDT PM CDT Michele DEAN - DAVID POCT Performing Organization Address City/[facility] Phon e Number FV POINT OF CARE TEST, GLUCOSE POINT OF CARE TEST, GLUCOSE Glucose by meter (08/09/2012 6:23 PM CDT) P athologist Signature Glucose 68 60 - 99 POINT OF CARE mg/dL TEST, GLUCOSE Specimen Anatomical Collection Method Collection Time Receive d Time (Source) Location / / Volume Laterality 08/09/2012 6:23 PM 2 6:25 CDT PM CDT Michele DEAN - BEXIANG POCT Performing Organization Address City/[facility] Code Phon e Number FV POINT OF CARE TEST, GLUCOSE POINT OF CARE TEST, GLUCOSE Glucose by meter (08/09/2012 6:18 PM CDT) P athologist Signature Glucose 67 60 - 99 POINT OF CARE mg/dL TEST, GLUCOSE Specimen Anatomical Collection Method Collection Time Receive d Time (Source) Location / / Volume Laterality 08/09/2012 6:18 PM 2 6:20 CDT PM CDT Michele DEAN - BEXIANG [...] 3:40 CDT PM CDT Michele DEAN - BEXIANG [...] PM 2 2:50 CDT PM CDT Michele Fuentes MD LAB [...] 9:35 CDT AM CDT Michele DEAN - DAVID POCT Performing Organization Address City/[facility]/ZIP Code Phon e Number FV POINT OF CARE TEST, GLUCOSE POINT OF CARE TEST, GLUCOSE (ABNORMAL) Glucose by meter (08/09/2012 8:22 AM CDT) P athologist Signature Glucose 106 (H) 60 - 99 POINT OF CARE mg/dL TEST, GLUCOSE Specimen Anatomical Collection Method Collection Time Receive d Time (Source) Location / / Volume Laterality 08/09/2012 8:22 AM 2 8:26 CDT AM CDT Michele DEAN - DAVID POCT Performing Organization Address City/[facility]/ZIP [facility] Phon e Number FV POINT OF CARE TEST, GLUCOSE POINT OF CARE TEST, GLUCOSE (ABNORMAL) INR (08/09/2012 5:56 AM CDT) P athologist Signature INR 2.26 (H) 0.86 - 1.14 [facility] Specimen Anatomical Collection Method Collection Time Receive d Time (Source) Location / / Volume Laterality Blood specimen 08/09/2012 5:56 AM 012 6:04 (specimen) CDT AM CDT Alvaro Cyr MD LAB - BLOOD ORDERABLES Performing Organization Address City/[facility]/ZIP [facility] Phon e Number [facility] [address] [phone] [facility] (ABNORMAL) Hemoglobin (08/09/2012 5:56 AM CDT) P athologist Signature Hemoglobin 9.3 (L) 13.3 - 17.7 [place] g/dL [facility] Specimen Anatomical Collection Method Collection Time Receive d Time (Source) Location / / Volume Laterality Blood specimen 08/09/2012 5:56 AM 012 6:04 (specimen) CDT AM CDT Alvaro Cyr MD LAB - BLOOD ORDERABLES Performing Organization Address City/[facility]/ZIP Code Phon e Number [facility] [address] [phone] [facility] Potassium (08/09/2012 5:56 AM CDT) P athologist Signature Potassium 5.1 3.4 - 5.3 [facility] mmol/L [facility] Specimen Anatomical Collection Method Collection Time Receive d Time (Source) Location / / Volume Laterality Blood specimen 08/09/2012 5:56 AM 6:04 (specimen) CDT AM CDT Alvaro Cyr MD LAB - BLOOD ORDERABLES Performing Organization Address City/State/ZIP Code Phon e Number [facility] [address] [phone] [facility] ABO/Rh type and screen (08/09/2012 5:36 AM CDT) Patholo gist Method Time Signature ABO Canceled, [facility] Test credited [facility] RH(D) Canceled, [facility] Test credited [facility] Antibody Canceled, [place] Screen Test credited [facility] Specimen 08/12/[address] [place] [address] [facility] Blood Bank Duplicate [facility] Comment request [facility] Specimen Anatomical Collection Method Collection Time Receive d Time (Source) Location / / Volume Laterality Blood specimen 08/09/2012 5:36 AM 6:05 (specimen) CDT AM CDT Alvaro Cyr MD LAB - BLOOD BANK TEST ORDER Performing Organization Address City/[facility]/ZIP Code Phon e Number [facility] [address] [phone] [facility] (ABNORMAL) Glucose by meter (08/08/2012 6:26 [...] IVC . Over the wire, a 16 Macanese peel-away sheath was placed. Approximately 15 cm laterally and inferi yonatan, a small skin incision was made. A tunnel was created from the skin incision to the peel-away sheath. A 15.5 Macanese 50 cm di alysis catheter was then [...] Glucose by meter (08/08/2012 4:35 PM CDT) P athologist Signature Glucose 70 60 - 99 POINT OF CARE mg/dL TEST, HANDHELD METER Specimen Anatomical Collection Method Collection Time Receive d Time (Source) Location / / Volume Laterality 08/08/2012 4:35 PM 2 4:40 CDT PM CDT Michele Fuentes MD LAB - [facility] POCT Performing Organization Address City/State/ZIP Code Phon e Number FV POINT OF CARE TEST, HANDHELD METER POINT OF CARE TEST, HANDHELD METER Blood component (08/08/2012 3:08 PM CDT) [facility] gist Method Time Signature Unit Number [id number] [facility] Blood Red Blood [place] Component Cells [facility] Reduced Status of Released to [facility] Unit care unit [facility] Specimen Anatomical Collection Method Collection Time Receive d Time (Source) Location / / Volume Laterality 08/08/2012 3:08 PM 2 3:10 CDT PM CDT Michele Fuentes MD LABORATORY Performing Organization Address City/State/ZIP Code Phon e Number [facility] [address] [phone] [facility] Blood component (08/08/2012 3:08 PM CDT) [facility] gist Method Time Signature Unit Number [id number] [facility] Blood Red Blood [facility] Reduced Status of Released to [facility] Unit care unit [facility] Specimen Anatomical Collection Method Collection Time Receive d Time (Source) Location / / Volume Laterality 08/08/2012 3:08 PM 2 3:10 CDT PM CDT Michele Fuentes MD LABORATORY Performing Organization Address City/[facility]/ZIP Code Phon e Number [facility] [address] [place] [address] [facility] ABO/Rh type and screen (08/08/2012 3:08 PM CDT) [facility] gist Method Time Signature Units Ordered 2 [facility] ABO O [facility] RH(D) Pos [facility] Antibody Screen Neg [facility] Specimen 08/11/2012 [facility] Crossmatch Red Blood [facility] Specimen Anatomical Collection Method Collection Time Receive d Time (Source) Location / / Volume Laterality 08/08/2012 3:08 PM 2 3:10 CDT PM CDT Michele Fuentes MD LAB - BLOOD BANK TEST ORDER Performing Organization Address City/State/ZIP Code Phon e Number [facility] [address] [phone] [facility] EKG 12-lead, tracing only (08/08/2012 1:53 PM CDT) Component Value Ref Range Test Analysis Performed Pathologis t Method Time At Signature Ventricular Rate 72 BPM RADIOLOGY RESULTS Atrial Rate 72 BPM RADIOLOGY RESULTS WY Interval 182 ms RADIOLOGY RESULTS QRS Duration 88 ms RADIOLOGY RESULTS QT 394 ms RADIOLOGY RESULTS QTc 431 ms RADIOLOGY RESULTS P Steward[place] 52 degrees RADIOLOGY RESULTS R AXIS 11 degrees RADIOLOGY RESULTS T Steward[place] 50 degrees RADIOLOGY RESULTS Interpretation Sinus rhythm [...] Volume Laterality 08/08/2012 1:53 PM CDT Zuleyka Gjerde ECG ORDERABLES Performing Organization Address City/State/ZIP Code Phon e Number RADIOLOGY RESULTS (ABNORMAL) INR (08/08/2012 12:55 PM CDT) P athologist Signature INR 2.37 (H) 0.86 - 1.14 [facility] Specimen Anatomical Collection Method Collection Time Receive d Time (Source) Location / / Volume Laterality Blood specimen 08/08/2012 12:55 2 1:01 (specimen) PM CDT PM CDT Alvaro Cyr MD LAB - BLOOD ORDERABLES Performing Organization Address City/State/ZIP Code Phon e Number [facility] [address] [place] [address] [facility] (ABNORMAL) CBC with platelets (08/08/2012 12:55 PM CDT) Analysis Performed At Patho logist Time Signature WBC 4.1 4.0 - 11.0 [place] 10e9/L [facility] RBC Count 2.84 (L) 4.4 - 5.9 [facility] 10e12/L [facility] Hemoglobin 7.7 (L) 13.3 - [facility] 17.7 g/dL [facility] Hematocrit 25.0 (L) 40.0 - [facility] 53.0 % [facility] MCV 88 78 - 100 [facility] MCH 27.1 26.5 - [place] 33.[address] [facility] MCHC 30.8 (L) 31.5 - [place] 36.5 g/dL [facility] RDW 15.6 (H) 10.0 - [facility] 15.0 % [facility] Platelet Count 145 (L) 150 - 450 [facility] 10e9/L [facility] Specimen Anatomical Collection Method Collection Time Receive d Time (Source) Location / / Volume Laterality Blood specimen 08/08/2012 12:55 2 1:01 (specimen) PM CDT PM CDT Alvaro Cyr MD LAB - BLOOD ORDERABLES Performing Organization Address City/State/ZIP Code Phon e Number [facility] [address] [phone] [facility] (ABNORMAL) Basic metabolic panel (08/08/2012 12:55 PM CDT) [facility] Method Time Signature Sodium 139 133 - 144 [place] mmol/L [facility] Potassium 5.9 (H) 3.4 - 5.3 [place] mmol/L [facility] Chloride 98 94 - 109 [place] mmol/L [facility] Carbon Dioxide 27 20 - 32 [place] mmol/L [facility] Anion Gap 14 6 - 17 [place] mmol/L [facility] Glucose 74 60 - 99 [place] mg/dL [facility] Urea Nitrogen 77 (H) 5 - 24 [place] mg/dL [facility] Creatinine 11.87 (H) 0.66 [facility] 1.25 mg/dL [facility] GFR Estimate 5 (L) >60 [place] mL/min/1.[address] LAB GFR Estimate If 6 (L) >60 [place] Black mL/min/1.[address] LAB Calcium 9.5 8.5 - 10.4 [place] mg/dL [facility] Specimen Anatomical Collection Method Collection Time Receive d Time (Source) Location / / Volume Laterality Blood specimen 08/08/2012 12:55 2 1:01 (specimen) PM CDT PM CDT Alvaro Cyr MD LAB - BLOOD ORDERABLES Performing Organization Address City/State/ZIP Code Phon e Number [facility] [address] [phone] [facility] - HIM ECG Scan (08/08/2012) Narrative [...] at 0845, Until Tue08/09/12 at 1434 B yfhkslx-N-unyfa acid (NEPHROCAPS) capsule 1 Given 12:36 PM [...] reviewed/ordered hemoglobin within the required timeline heparin 2,500 units in Given 08/09/2012 11:00 AM 252.5 mLs Operative 250 mL 0.9% NaCl CDT Site/Surgical S ite PRN, Starting on Tue08/09/12 at 1100, Intra-procedure HYDROmorphone (DILAUDID) injection 0.2-0 .4 mg [...] Dialyzer Prime. (In Dialyzer), Dialysis sodium chloride 0.9% Given 08/09/2012 11:05 AM 1,000 mLs Operative (bottle) irrigation CDT Site/Surgical S ite PRN, Starting on Tue08/09/12 at 1105, Area to irrigate and instructions: ., Intra-procedure documented in this encounter Active and Recently Administered Medications Times are shown in CDT. Scheduled Medication Order 08/08/2012 08/09/2012 08/10/2012 B pkdbvun-B-sqlis acid (NEPHROCAPS) capsule 1 mg (CANC ELED) [...] (COMPLETED) 1103 (Given - Provider: Inocencia Carvalho, MACHINE GUIDE BASE WINDER ULTRASONIC SOLDERER) 2 g, Intravenous, for 30 Minutes, PRE-OP /PRE-PROCEDURE, For 1 dose, Pre-procedure dextrose 50 % solution 25 mL (COMPLETED) 1445 (Given - Provider: Criss Moreno RN - Comment: [facility] 96) 25 mL, Intravenous, ONCE, Tue08/09/12 [...] Josue Byrnes RN) 10,000 Units, Intravenous, ONCE, [facility] 08/10/12 at 0715, For 1 dose, [...] Orders Generic Provider)2117 (Given - Provider: Jayne Kellogg RN) 40 mg, Oral, EVERY EVENING, First dose on Tue08/08/12 at 2000 sodium chloride 0.9 % BOLUS 250 mL (COMPLETED) 1835 (N ew Bag - Provider: Stacy Del Rio RN - Comment: given as prime on dialysis) Hemodialysis Machine, 250 mL, ONCE, Tue08/08/12 at 1615, For 1 dose, For Dialyzer Prime. (In Dialyzer), Dialysis sodium chloride 0.9 % BOLUS 250 mL (COMPLETED) 1202 (New Bag - Provider: Josue Byrnes RN - Comment: garden machinery mechanic and rinseback) Hemodialysis Machine, 250 mL, ONCE, [...] Starting Tue08/09/12 at 1740, Hold while on FISHER OYSTER or with regular IV opioid dosing., Post-procedure [...] Intra-procedure documented in this encounter Care Teams Mainframe Consultant Relationship Specialty Start Date End Date Preet Huff PCP - General 06/24/11 documented as of this encounter
--- OUTSIDE RECORDS SUMMARY | 2022-09-01 20:24 | XMS_ITS | Encounter Summary ---
:1965 Author Organization [place] Address [facility] [place] [address] Care Team Providers Name Role Phone Preet Huff Primary Care Provider Encounter Details Date Type Department Care Team Description 08/08/2012 Orders Only [facility] Carolyn Garcia ESRF (en d stage renal [place] Interventional Nelly RN failure) (H) (Primary Radiology VASCULAR HEALTH Dx) [address] [place] [id number] [address] [facility] [phone] [place], [place] [id number] Social History Tobacco Use Types Packs/Day Years [...] disease documented in this encounter Care Teams Hospitality Coordinator Relationship Specialty Start Date End Date Preet Huff PCP - General 06/24/11 documented as of this encounter
--- OUTSIDE RECORDS SUMMARY | 2022-09-01 20:24 | XMS_ITS | Encounter Summary ---
:1965 Author Organization [place] Address [address] [place] [address] Care Team Providers Name Role Phone Huff Preet Hans Primary Care Provider Encounter Details Date Type Department Care Team Description 08/09/2012 Anesthesia Event [facility] Zuleyka Olson ANESTHESIOLOGY [address] [place] [address] Ariane PeriOP Ser Richard Bravo MD [address] [phone] [address] [place] [id number] Anesthesia Record Procedure Summary Procedure Name Responsible Anesthesia Start Anesthesia Stop Anesthesiologist Time Time REDO RIGHT PROFUNDUS 08/09/12 1035 08/09/12 14 38 FEMORAL TO COMMON FEMORAL ACCESS GRAFT WITH PTFE (POLY TETRA FLOROETHELINE GRAFT), REMOVAL COMMON FEMORAL VEIN STENT, GRAFT EMBOLECTOMY (Right: Groin) Events Date Time Event Comment 08/09/2012 0832 1035 An Start 1423 An Emergence Spontaneously br eathing. TV ~ 500 mL. Oropharynx suctioned. Eyes open. Sustained head lift x 5 seconds. Follows simple c ommands. Extubated. Airway patent. 1438 An Stop Name Total ceFAZolin (ANCEF) 1 g vial to attach to IVPB 2 g acetaminophen IV 10 mg/ml 1,000 mg Agents No agents on file. Blood No blood administrations on file. Lines, Drains, and Airways Type Details Placement Removal RETIRED: CVC Double 07/19/11; 1150; 14.5; 07/19/11 1150 by 08/10 1412 by Lumen [id number]; Tunneled; Right; Yolanda Garcia Sc hoenecker, Internal jugular; Dr. LINDA Fuentes; Sutured; Flouroscopy; SVC/RA Junction; Dr Fuentes; Dialysis Incision/Surgical Site 10/20/11; 2000; Lower, 10/20/112000 by 1 11/18/15 1120 by Right; Arm; 09/17/16; Mona Vang Johnso n, Megan Thomas, 1120 RN RN Incision/Surgical Site 10/20/11; 2002; Upper, 10/20/112002 by 1 11/18/15 1120 by Right; Arm; 09/17/16; Mona Vang Johnso n, Megan Thomas, 1120 RN RN Venous Sheath 04/24/12; 1455; 5 Fr; 04/24/12 1455 by 08/10/12 1413 by Right; Dr. Olmstead; Carolyn Garcia, Emeterio navarro, 08/10/12; 1413 RN Mirlande Gonzalez Incision/Surgical Site 05/03/12; 1600; Right; 05/03/12 1600 by 1 11/18/15 1120 by Groin; 09/17/16; 1120 Monserrat Blake, LINDA skaggs, Megan Thomas, RN Venous Sheath 08/03/12; 1400; 6 Fr; 08/03/12 1400 by 08/10/12 1413 by Other (Comment) (Right Tyrel Gonzalez, RN Naman adam, femoral vein dialysis Mirlande J fistula); Right; Cleveland Olmstead MD; 08/10/12; 1413 Arterial Sheath 08/03/12; 1409; 6 Fr; 08/03/12 1409 by 08/10/12 1413 by Other (Comment) (Right Tyrel Gonzalez, RN Naman adam, dialysis fistula Mirlande J sheath); Right; Cleveland Olmstead MD; 08/10/12; 1413 Hemodialysis Vascular Arteriovenous fistula; 08/03/12 1948 by 1120 by Access Right; Thigh Megan Ochoa, RN Peripheral IV 20 G; Left; Hand 08/08/12 1406 by 08/10/12 1351 by Tahmina Bah Incision/Surgical Site 08/08/12; 1527; Right; 08/08/12 1527 by 1 11/18/15 1120 by Groin; 09/17/16; 1120 Macie Amin L isa D, LINDA Wood RN RETIRED ETT Airway Size: 8; Cuffed; 08/09/12 1110 by 2 1423 by Oral endotracheal tube; Edna Osborn on[address] Place by: JUDITH Sotelo NA Fischels; Insertion Attempts: 1; Secured at (cm)to lip: 24 cm; Breath Sounds: Equal, clear and bilateral; End Tidal CO2: Present; Dentition: Intact; Grade View of Cords: 1; Airway Adjuncts: [place] scope (did not attempt with normal laryngoscope) Incision/Surgical Site 08/09/12; 1401; Right; 08/09/12 1401 by 1 11/18/15 1120 by Groin; 09/17/16; 1120 Aleta Taylor RN Johnson, L isa D RN Incision/Surgical Site 08/09/12; 1403; 08/09/12 1403 by 09/17/16 1120 by Anterior, Right; Thigh; Aleta Taylor RN Johnson, Lisa D, 09/17/16; 1120 RN documented in this encounter Social History Tobacco Use Types Packs/Day Years Used Date Smoking Tobacco: Never Smokeless Tobacco: Never Alcohol Use Standard Drinks/Week Comments No 0 (1 standard drink = 0.6 oz pure alcoho l) Sex Assigned at Date Recorded Not on file documented as of this encounter OR Notes Anesthesia Postprocedure Evaluation - Brisa Hernandez MD - 08/09/2012 4:43 PM CDT Anesthesia Post-Evaluation Note Patient: Herminio Victor Patient location: PACU Procedure(s) Performed: Procedure(s) with comments: BYPASS GRAFT FEMOROPOPLITEAL - REDO RIGHT PROFUNDUS FEMORAL TO COMMON FEMORAL ACCESS GRAFT WITH PTFE(POLY TETRA FLOROETHELINE GRAFT), REMOVAL COMMON FEMORAL VEIN STENT, GRAFT EMBOLECTOMY THROMBECTOMY LOWER EXTREMITY Anesthesia type: General Patient Condition Respiratory Function (RR / SpO2 / Airway Patency): Satisfactory Cardiac Function (HR / Rhythm / BP): Satisfactory Mental Status: Satisfactory Temperature: Satisfactory Pain Control: Satisfactory PONV: None Beta-Jh Therapy: None indicated Hydration Status: Satisfactory Last Vitals: Filed Vitals: 08/09/12 1610 08/09/12 1620 08/09/12 1630 BP: 130/73 136/69 138/71 Pulse: Temp: Resp: SpO2: 100% 100% 100% Additional Comments: Anesthesia Preprocedure Evaluation - Zuleyka Olson - 08/09/2012 8:31 AM CDT Anesthesia Evaluation . Pt has had prior anesthetic. Type: General and MAC ROS/MED HX Pulmonary: (+) sleep apnea (-) tobacco use, asthma, COPD and recent URI Neurologic: (+) CVA (-) seizures Cardiovascular: (+) hypertension . . fainting (syncope), METS/Exercise Tolerance: Hematologic: Musculoskeletal: GI/Hepatic: Renal: (+) chronic renal disease type: ESRD Endo: (+) type II DM Diabetic complications: nephropathy neuropathy retinopathy, Psychiatric: Infectious Disease: Other: Physical Exam Airway Mallampati: IV TM distance: >3 FB Neck ROM: full Dental (+) upper dentures and lower dentures Cardiovascular Rhythm and rate: regular Pulmonary breath sounds clear to auscultation Anesthesia Plan ASA Score 4 . Plan for MAC Routine analgesia and antiemetics to be used for post-operative care. Anesthetic plan, risks, benefits and alternatives discussed with: patient or roofing sales representative. Patient had dialysis last night. K this am is 5.1. History & Physical Review History and physical reviewed; no interval change. . Procedure: Procedure(s): INSERT CATHETER VENOUS TRANSLUMBAR Preop diagnosis: FAILED GRAFT Allergies Allergen Reactions ??? Aspirin (Dihydroxyaluminum Aminoacetate) GI Disturbance GI bleeding Past Medical History Diagnosis Date ??? Hypertension ??? Anemia ??? Retinopathy ??? Kidney disease ??? Kidney disease ??? Hyperkalemia ??? ESRD (end stage renal disease) dialysis T--Tue ??? Blind ??? DVT (deep venous thrombosis) ??? Orthostasis ??? Diabetes mellitus ??? Syncope ??? Hypertension ??? A-V fistula left forearm ??? Hyperlipemia ??? Cognitive deficits ??? Anemia ??? Sleep apnea CPAP ??? Chronic in-center hemodialysis status Past Surgical History Procedure Date ??? Av fistula or graft arterial ??? Abdomen surgery ??? Genitourinary surgery TURP,CIRCUMCISION ??? Create fistula arteriovenous upper extremity 10/20/2011 Procedure:CREATE FISTULA ARTERIOVENOUS UPPER EXTREMITY; VEIN PATCH RIGHT ARM ARTERIOVENOUS FISTULA WITH BOVINE PATCH; Surgeon:ROBER SARAVIA; Location: OR ??? Create graft loop arteriovenous lower extremity 05/03/2012 Procedure: CREATE GRAFT LOOP ARTERIOVENOUS LOWER EXTREMITY; RIGHT GROIN LOOP GRAFT WITH CADAVER FEMORAL ARTERY; Surgeon: Rober Saravia MD; Location: OR Prior to Admission medications Medication Sig Start Date End Date Taking? Authorizing Provider Warfarin Sodium (WARFARIN THERAPY REMINDER) 1 each daily. 08/05/12 Wojciech Holman MD clopidogrel (PLAVIX) 75 MG tablet Take 1 tablet by mouth daily. 08/01/12 Wojciech Holman MD HYDROcodone-acetaminophen 5-325 MG per tablet Take 1 tablet by mouth every 6 hours as needed for pain. 05/04/12 Rober Saravia MD metoprolol (LOPRESSOR) 50 MG tablet Take 50 mg by mouth 2 times daily. Reported, Patient FOLIC ACID PO Take by mouth. Reported, Patient bisacodyl (DULCOLAX) 5 MG EC tablet Take 5 mg by mouth 2 times daily. Reported, Patient calcium acetate (PHOSLO) 667 MG CAPS Take by mouth 3 times daily (with meals). Reported, Patient b tvmzxnk-N-bzser acid (NEPHROCAPS) 1 MG capsule Take 1 capsule by mouth daily. Reported, Patient lactulose (CHRONULAC) 10 GM/15ML solution Take 20 g by mouth daily. Reported, Patient LISINOPRIL PO Take 40 mg by mouth daily. Hold on days of dialysis Reported, Patient simvastatin (ZOCOR) 40 MG tablet Take 40 mg by mouth At Bedtime. Reported, Patient Current Facility-Administered Medications Ordered in Epic Medication Dose Route Frequency Last Rate Last Dose ??? heparin (porcine) 1000 UNIT/ML injection ??? heparin (Porcine) Lock Flush 100 UNIT/ML SOLN ??? iopamidol (ISOVUE-370) 76% solution 120 mL 120 mL Intravenous Once 81 mL at 08/08/12 1423 ??? sodium chloride 0.9 % BOLUS 250 mL 250 mL Hemodialysis Machine Once 300 mL at 08/08/12 1835 ??? epoetin mauricio (EPOGEN,PROCRIT) injection 10,000 Units 10,000 Units Intravenous Once 10,000 Units at 08/08/12 191 ??? doxercalciferol (HECTOROL) injection 1.5 mcg 1.5 mcg Intravenous See Admin Instructions 1.5 mcg at 08/08/121914 ??? No HEParin products Does not apply Continuous PRN ??? lisinopril (PRINIVIL,ZESTRIL) tablet 40 mg 40 mg Oral Daily 40 mg at 08/08/12 2253 ??? metoprolol (LOPRESSOR) tablet 100 mg 100 mg Oral BID 100 mg at 08/08/12 225 ??? B diepowo-P-hjzqv acid (NEPHROCAPS) capsule 1 mg 1 capsule Oral Daily ??? calcium acetate (PHOSLO) capsule 1,334 mg 1,334 mg Oral TID w/meals 1,334 mg at 08/08/12 2251 ??? simvastatin (ZOCOR) tablet 40 mg 40 mg Oral QPM 40 mg at 08/08/12 2252 ??? epoetin mauricio (EPOGEN,PROCRIT) 64939 UNIT/ML injection ??? DISCONTD: sodium chloride (PF) 0.9% PF flush 3 mL 3 mL Intravenous Q1H PRN ??? DISCONTD: sodium chloride (PF) 0.9% PF flush 3 mL 3 mL Intravenous Q8H ??? DISCONTD: ceFAZolin (ANCEF) 1 g vial to attach to IVPB 1 g Intravenous Pre-Op/Pre-procedure x 1 dose ??? DISCONTD: medication instruction Does not apply Continuous PRN ??? DISCONTD: heparin (porcine) injection 2,000 Units 2 mL Intravenous Q1H PRN ??? DISCONTD: heparin 1000 unit/mL DIALYSIS Cath Care 2 mL Intravenous Q1H PRN ??? DISCONTD: ceFAZolin (ANCEF) 1 g vial to attach to IVPB PRN 1 g at 08/08/12 1446 ??? DISCONTD: heparin 100 UNIT/ML injection PRN 1,000 Units at 08/08/12 1519 ??? DISCONTD: lidocaine (PF) (XYLOCAINE) 1 % injection PRN 25 mL at 08/08/12 1528 ??? DISCONTD: iopamidol (ISOVUE-300) IV solution 61% PRN 25 mL at 08/08/12 1601 ??? DISCONTD: heparin injection PRN 10,000 Units at 08/08/12 1605 No current Epic-ordered outpatient prescriptions on file. Wt Readings from Last 1 Encounters: 08/05/12 71.7 kg (158 lb 1.1 oz) Temp Readings from Last 1 Encounters: 08/09/12 98.6 ??F (37 ??C) Oral BP Readings from Last 6 Encounters: 08/09/12 142/71 08/09/12 142/71 08/09/12 142/71 08/05/12 106/56 08/01/12 161/91 07/31/12 136/78 Pulse Readings from Last 4 Encounters: 08/08/12 67 08/08/12 67 08/08/12 67 08/05/12 76 Resp Readings from Last 1 Encounters: 08/09/12 16 SpO2 Readings from Last 1 Encounters: 08/09/12 99% Recent Labs Lab Test 08/08/12 1255 08/05/12 0820 NA 139 136 POTASSIUM 5.9* 3.9 CHLORIDE 98 95 CO2 27 29 ANIONGAP 14 13 GLC 74 132* BUN 77* 54* CR 11.87* 8.18* JON 9.5 8.4* Recent Labs Lab Test 08/08/12 1255 WBC 4.1 HGB 7.7* PLT 145* Recent Labs Lab Test 08/08/12 1255 INR 2.37* ECG: ECHO: CXR: documented in this encounter Miscellaneous Notes Anesthesia Care Transfer Note - Inocencia Carvalho APRN ATHLETE MANAGER - 08/09/2012 2:26 PM CDT .Anesthesia Care Transfer Note Patient: Herminio Victor Transferred to: PACU Patient vital signs: stable Airway: none Inocencia Carvalho CRNA 08/09/2012 documented in this encounter Plan of Treatment Not on filedocumented as of this encounter Visit Diagnoses Not on filedocumented in this encounter Administered Medications Inactive Administered Medications - up to 3 most recent administrations Medication Order MAR Action Action Date Dose Rate Site acetaminophen (OFIRMEV) 10 mg/mL Given 08/09/2012 1:04 PM CDT 1, 000 mg infusion Intravenous, PRN, mild pain, fever, Administer over 15 Minutes, Starting on Tue08/09/12 at 1304, Maximum dose of acetaminophen is 4000 mg from all sources., Anesthesia Intra-op ceFAZolin (ANCEF) 1 g vial to attach to IVPB Given 08/09/2012 11:03 AM CDT 2 g Routine, 2 g, Intravenous, PRE-OP/PRE-PROCEDURE, Starting on Tue08/09/12 at 0944, For 1 dose, Pre-procedure documented in this encounter Care Teams Screen Printing Paster Relationship Specialty Start Date End Date Preet Huff PCP - General 06/24/11 documented as of this encounter
--- OUTSIDE RECORDS SUMMARY | 2022-09-01 20:24 | XMS_ITS | Encounter Summary ---
:1965 Author Organization [place] Address [address] [place] [address] Care Team Providers Name Role Phone Preet Huff Primary Care Provider Encounter Details Date Type Department Care Team Description 08/08/2012 Anesthesia Event [facility]ka [facility] [address], [address] ANESTHES IOLOGY [address] [place] [address] [address] [address] [phone] (Wo rk) Anesthesia Record Procedure Summary Procedure Name Responsible Anesthesia Start Anesthesia Stop Time Anesthesiologist Time LUMBAR TUNNEL CATH 08/08/12 1440 08/08/12 1627 PLACEMENT. (Neck) Events Date Time Event Comment 08/08/2012 1440 An Start 1505 1627 An Stop Name Total ceFAZolin vial 1 gm 1 g Agents No agents on file. Blood No blood administrations on file. Lines, Drains, and Airways Type Details Placement Removal RETIRED: CVC Double 07/19/11; 1150; 14.5; 07/19/11 1150 by 08/10 1412 by Lumen [id number]; Tunneled; Right; Yolanda Garcia, Stevenson corbin, Internal jugular; Dr. LINDA Fuentes; Sutured; Flouroscopy; SVC/RA Junction; Dr Fuentes; Dialysis Incision/Surgical Site 10/20/11; 2000; Lower, 10/20/112000 by 1 11/18/15 1120 by Right; Arm; 09/17/16; Mona Vang Johnso n, Lisa D, 1120 RN RN Incision/Surgical Site 10/20/11; 2002; Upper, 10/20/112002 by 1 11/18/15 1120 by Right; Arm; 09/17/16; Mona Vang Johnso n, Lisa D, 1120 RN RN Venous Sheath 04/24/12; 1455; 5 Fr; 04/24/12 1455 by 08/10/12 1413 by Right; Dr. Olmstead; Carolyn Garcia Schoene cker, 08/10/12; 1413 RN Mirlande Gonzalez Incision/Surgical Site 05/03/12; 1600; Right; 05/03/12 1600 by 1 11/18/15 1120 by Groin; 09/17/16; 1120 Monserrat Blake RN Johns on, Lisa D, RN Venous Sheath 08/03/12; 1400; 6 Fr; 08/03/12 1400 by 08/10/12 1413 by Other (Comment) (Right Tyrel Gonzalez, LINDA adam, femoral vein dialysis Mirlande J fistula); Right; Cleveland Olmstead MD; 08/10/12; 1413 Arterial Sheath 08/03/12; 1409; 6 Fr; 08/03/12 1409 by 08/10/12 1413 by Other (Comment) (Right Tyrel Gonzalez, LINDA adam, dialysis fistula Mirlande J sheath); Right; Cleveland Olmstead MD; 08/10/12; 1413 Hemodialysis Vascular Arteriovenous fistula; 08/03/12 1948 by 1120 by Access Right; Thigh Megan Ochoa, RN Peripheral IV 20 G; Left; Hand 08/08/12 1406 by 08/10/12 1351 by Tahmina Bah RETIRED: CVC Double 08/08/12; 1515; 15.5; 08/08/12 1515 by 08/08 1700 by Lumen Tunneled, Non - valved Macie Amin, (open ended) LINDA Wood (translumbar); 50 cm; Right; Other (Comment) (Inferior vena cava); Dr Fuentes; Sutured; Flouroscopy; IVC; flouro; dialysis Incision/Surgical Site 08/08/12; 1527; Right; 08/08/12 1527 by 1 11/18/15 1120 by Groin; 09/17/16; 1120 Macie Amin L isa D, Mamaril, RN RN documented in this encounter Social History Tobacco Use Types Packs/Day Years Used Date Smoking Tobacco: Never Smokeless Tobacco: Never Alcohol Use Standard Drinks/Week Comments No 0 (1 standard drink = 0.6 oz pure alcoho l) Sex Assigned at Date Recorded Not on file documented as of this encounter OR Notes Anesthesia Postprocedure Evaluation - Richard Meraz MD - 08/09/2012 5:54 AM CDT Anesthesia Post-Evaluation Note Patient: Herminio Victor Patient location: PACU Procedure(s) Performed: Procedure(s) with comments: INSERT CATHETER VENOUS TRANSLUMBAR - LUMBAR TUNNEL CATH PLACEMENT. Anesthesia type: MAC Patient Condition Respiratory Function (RR / SpO2 / Airway Patency): Satisfactory Cardiac Function (HR / Rhythm / BP): Satisfactory Mental Status: Satisfactory Temperature: Satisfactory Pain Control: Satisfactory PONV: None Beta-Jh Therapy: None indicated Hydration Status: Satisfactory Last Vitals: Filed Vitals: 08/08/12 2100 08/08/12 2111 08/08/12 2139 BP: 117/68 150/78 151/73 Pulse: Temp: 98.6 ??F (37 ??C) Resp: 18 SpO2: 98% 100% Additional Comments: Anesthesia Preprocedure Evaluation - Zuleyka Olson - 08/08/2012 1:41 PM CDT Anesthesia Evaluation . Pt has [...] benefits and alternatives discussed with: patient or retail sales representative. History & Physical Review History and [...] times daily (with meals). Reported, Patient b wkxatau-G-sbjzl acid (NEPHROCAPS) 1 MG capsule Take 1 capsule by mouth daily. Reported, Patient lactulose (CHRONULAC) 10 GM/15ML solution Take 20 g by mouth daily. Reported, Patient LISINOPRIL PO Take 40 mg by mouth daily. Hold on days of dialysis Reported, Patient simvastatin (ZOCOR) 40 MG tablet Take 40 mg by mouth At Bedtime. Reported, Patient Current Facility-Administered Medications Ordered in [facility] Medication Dose Route Frequency Last Rate Last Dose ??? sodium chloride (PF) 0.9% PF flush 3 mL 3 mL Intravenous Q1H PRN ??? sodium chloride (PF) 0.9% PF flush 3 mL 3 mL Intravenous Q8H ??? ceFAZolin (ANCEF) 1 g vial to attach to IVPB 1 g Intravenous Pre-Op/Pre-procedure x 1 dose ??? medication instruction Does not apply Continuous PRN ??? heparin (porcine) 1000 UNIT/ML injection ??? heparin (Porcine) Lock Flush 100 UNIT/ML SOLN No current [facility]-ordered outpatient prescriptions on file. Wt Readings from Last 1 Encounters: 08/05/12 71.7 kg (158 lb 1.1 oz) Temp Readings from Last 1 Encounters: 08/08/12 98.4 ??F (36.9 ??C) Oral BP Readings from Last 6 Encounters: 08/08/12 143/77 08/08/12 143/77 08/05/12 106/56 08/01/12 161/91 07/31/12 136/78 05/04/12 108/59 Pulse Readings from Last 4 Encounters: 08/08/12 67 08/08/12 67 08/05/12 76 08/01/12 64 Resp Readings from Last 1 Encounters: 08/08/12 18 SpO2 Readings from Last 1 Encounters: 08/08/12 100% Recent Labs Lab Test 08/08/12 1255 08/05/12 [...] Miscellaneous Notes Anesthesia Care Transfer Note - Joshua Edwards APRN SEASONAL DRIVER - 08/08/2012 4:27 PM CDT Anesthesia Care Transfer Note Patient: Herminio Victor Transferred to: PACU Patient vital signs: stable Airway: none Dentition intact, report to RN, transfer of care to RN documented in this encounter Plan of Treatment Not on filedocumented as of this encounter Visit Diagnoses Not on filedocumented in this encounter Administered Medications Inactive Administered Medications - up to 3 most recent administrations Medication Order MAR Action Action Date Dose Rate Site ceFAZolin (ANCEF) 1 g vial to attach Given 08/08/2012 2:46 PM CD T 1 g to IVPB Routine, PRN, Starting on 08/08/12 at 1446, Anesthesia Intra-op documented in this encounter Care Teams Cotton Wringer Relationship Specialty Start Date End Date Preet Huff PCP - General 06/24/11 documented as of this encounter
--- OUTSIDE RECORDS SUMMARY | 2022-09-01 20:25 | XMS_ITS | Encounter Summary ---
:1965 Author Organization [place] Address [facility] [place] [address] Care Team Providers Name Role Phone Preet Huff Primary Care Provider Reason for Visit Auth/Cert - Closed Specialty Diagnoses / Procedures Referred By Contact Refer red To Contact Surgery Diagnoses RENAL FAILURE Sh Periop Services Procedures CREATE GRAFT LOOP ARTERIOVENOUS LOWER EXTREMITY [address], [address] [place] [phone] Phone: Referral ID Status Reason Start Date Expiration Date Visits Requ ested Visits Authorized [id number] Closed 1 1 Encounter Details Date Type Department Care Team Description 05/03/2012 - Hospital Encounter [facility] Rober Saravia A- V fistula (H) 05/04/2012 Ariane Oviedo MD Intermediate Care [address] [place] [id number] [place] [id number] Social History Tobacco Use Types Packs/Day Years Used Date Smoking Tobacco: Never Smokeless Tobacco: Never Alcohol Use Standard Drinks/Week Comments No 0 (1 standard drink = 0.6 oz pure alcoho l) Sex Assigned at Date Recorded Not on file documented as of this encounter Last Filed Vital Signs Vital Sign Reading Time Taken Comments Blood Pressure 108/59 05/04/2012 3:44 PM CDT Pulse 85 05/04/2012 3:44 PM CDT Temperature 37 ??C (98.6 ??F) 05/04/2012 3:44 PM CDT Respiratory Rate 18 05/04/2012 3:44 PM CDT Oxygen Saturation 99% 05/04/2012 3:44 PM CDT Inhaled Oxygen Concentration - - Weight 71.5 kg (157 lb 10.1 oz) 05/04/2012 10:45 AM CDT Height 162.6 cm (5' 4) 05/03/2012 10:51 AM CDT Body Mass Index 27.06 05/03/2012 10:51 AM CDT documented in this encounter Discharge Summaries Rober Saravia MD - 05/04/2012 8:56 AM CDT HISTORY: Julio Cesar Sandhu is a 47-year-old patient who is on chronic hemodialysis via right upper arm arteriovenous fistula. He underwent a recent fistulogram where he was found to have a stenosis in the more proximal portion of the fistula which was successfully angioplastied. 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 He had acceptable collaterals to prevent significant upper extremity swelling. However, with this we knew that the fistula will eventually fail and that permanent hemodialysis access in another site would be beneficial. We felt that placement of this in the right groin would be his best option. HOSPITAL COURSE: The patient was admitted on 05/03/12 where under general anesthetic, we placed a right profundus femoral to the saphenofemoral junction cadaveric superficial femoral artery graft.This was of good caliber and easily palpable along the entire loop.The arterial inflow was located on the lateral aspect of his thigh and the venous return in the medial aspect. He tolerated the procedure quite well. He was kept in the hospital overnight, had an excellent palpable pulse and thrill within the new graft in his thigh and also his upper arm graft. He underwent maintenance hemodialysis on the right upper graft prior to discharge at our inpatient unit. He was ready for discharge back to his senior living on the first postoperative day with no complications. DISCHARGE MEDICATIONS: 1. Amlodipine 10 mg daily. 2. Lisinopril 40 mg daily. 3. Metoprolol 50 mg daily. 4. Lactulose daily. 5. Calcium acetate 667 mg t.i.d. 6. Sevelamer 800 mg daily. 7. Iron sulfate 325 mg daily. 8. [place] p.r.n. pain. 9. Zocor 40 mg at bedtime. 10. Nephrocaps 1 tablet daily. 11. Folic acid 1 tablet daily. 12. Lactulose solution 20 grams daily. FINAL DIAGNOSES: 1. Chronic renal failure, in need of new permanent hemodialysis access via placement of right thigh profundus femoral to saphenofemoral junction cadaveric superficial femoral artery graft. 2. Start maintenance hemodialysis via still functional right upper arm arteriovenous fistula centralvenous stenosis. 3. Hypertension. PLAN: The patient will return to his senior living. He will continue with his maintenance hemodialysis.We plan to use the right upper arm access until it fails, preserving the right groin access for later use. The patient will follow up in my office in approximately 2 months, at which time a duplex ultrasound of the access was performed to ensure there was no intimal hyperplasia developing. NOTE: He is allergic to ASA. ROBER SARAVIA MD MT: #[id number] Name: JULIO CESAR SANDHU MRN: [id number] Account: [id number] : 1965 Admit Date: Discharge Date: Document: [id number] cc: Preet Huff MD documented in this encounter Discharge Instructions AttachmentsThe following attachments cannot be sent through Care Everywhere. DIALYSIS SHUNT (FISTULA) BLEEDINGdocumented in this encounter Medications at Time of Discharge Medication Sig Dispensed Refills Start Date End Date b fdohoge-F-ylclt acid Take 1 capsule by 0 03/04/2016 (NEPHROCAPS) 1 MG mouth daily (with capsule dinner) bisacodyl (DULCOLAX) 5 Take 10 mg by mouth 2 times daily. 2 x 5 mg tabs bid per [facility] 0 06/19/2013 MG EC tablet calcium acetate (PHOSLO) Take 1,334 mg by 0 11/19/2015 667 MG CAPS mouth 3 times daily (with meals) lactulose (CHRONULAC) 10 Take 40 g by mouth 0 06/19/2013 GM/15ML solution daily. 10 g/15ml solution. Take 60 ml once daily. Per [facility] LISINOPRIL PO Take 40 mg by mouth daily Hold on days of dialysis 0 06/19/2013 (Lisinopril 40 mg daily per [facility]--[facility] does not have hold on dialysis days listed) metoprolol (LOPRESSOR) Take 100 mg by mouth 0 06/19/2013 50 MG tablet 2 times daily. 50mg tabs take 2 tabs bid per [facility] simvastatin (ZOCOR) 40 Take 40 mg by mouth 0 12/16/2017 MG tablet every evening amLODIPine (NORVASC) 10 Take 10 mg by mouth 0 07/31/2012 MG tablet daily. ferrous sulfate 325 (65 Take by mouth daily 0 07/31/2012 FE) MG tablet (with breakfast). FOLIC ACID PO Take by mouth. 0 012 HYDROcodone-acetaminophe Take 1 tablet by 20 tablet 0 05/0408/10/2012 n 5-325 MG per mouth every 6 hours tabletIndications: A-V as needed for pain. fistula (H) sevelamer (RENVELA) 800 Take 800 mg by mouth 0 07/31/2012 MG tablet daily. documented as of this encounter Progress Notes Rober Saravia MD - 05/20/2012 9:53 PM CDT Rober Saravia MD - 05/18/2012 8:34 AM CDT Alem Hale LICSW - 05/04/2012 4:31 PM CDT SW D: Patient is discharging back to his home in [place] today. [facility] transport will transport patient home ([phone]). I spoke with patient's relative Aunxavier Renee whom he lives with. She manages his medication. The staff nurse will call and review the discharge instructions with her. No other needs identified. ANUJ Hardy Steven Styles MD - 05/04/2012 11:24 AM CDT Inpatient Dialysis Progress Note Assessment and Plan: ESRD, status quo. Stable dialysis run thus far. Expect good chemical balancing and improved fluid status by end of run. Should be able to discharge home today, as planned, after completion of run. Next HD 05/06, at [facility], as usual. Interval History: no complaints and doing well; no cp, sob, n/v/d, or abd pain. Examined during dialysis. VS all ok. Meds and labs reviewed. K+ 4.3 on 05/03 pre-op; repeat today pending. Dialysis Details: Current weight: 71.5 kg Dry Weight: 69 Dialysis Temp: 36.5 ??C Access Device: AVF Access Site: R arm Dialyzer: Optiflux 160 Dialysis Bath: K+ 2 Sodium Profile: no UF Goal: 2-2.5 Blood Flow Rate (mL/min): 450 Total Treatment Time (hrs): 3.5 Heparin: Low dose as required Medications: EPO dose: 4400 Zemplar: 1.5 mcg IV Fe: no Medications: ??? sodium chloride 0.9 % 250 mL Hemodialysis Machine Once ??? sodium chloride 0.9 % 250-1,000 mL Intravenous Once in dialysis ??? heparin (porcine) 500 Units Hemodialysis Machine Once in dialysis ??? epoetin mauricio (EPOGEN,PROCRIT) inj ESRD 4,400 Units Intravenous Once in dialysis ??? doxercalciferol 1.5 mcg Intravenous Once in dialysis ??? ceFAZolin 1 g Intravenous Pre-Op/Pre-procedure x 1 dose ??? amLODIPine 10 mg Oral Daily ??? B fgpakrf-Z-zbllz acid 1 capsule Oral Daily with supper ??? bisacodyl 5 mg Oral BID ??? calcium acetate 667 mg Oral TID w/meals ??? ferrous sulfate 325 mg Oral Daily with breakfast ??? folic acid (FOLVITE) tablet 1 mg 1 mg Oral Daily ??? lactulose 20 g Oral Daily ??? lisinopril (PRINIVIL,ZESTRIL) tablet 40 mg 40 mg Oral Daily ??? metoprolol 50 mg Oral BID ??? sevelamer 800 mg Oral Daily ??? simvastatin 40 mg Oral At Bedtime ??? sodium chloride (PF) 3 mL Intravenous Q8H ??? DISCONTD: sodium chloride (PF) 3 mL Intravenous Q8H ??? heparin (porcine) ??? DISCONTD: NaCl 0.9% Physical Exam: Vital Sign Ranges Temp: [97.2 ??F (36.2 ??C)-100.3 ??F (37.9 ??C)] 98 ??F (36.7 ??C) Pulse: [79-82] 82 Heart Rate: [64-94] 94 Resp: [18-21] 18 BP: (119-156)/(64-78) 143/73 mmHg SpO2: [96 %-100 %] 100 % Weight, current: 71.5 kg Weight change: I/O last 3 completed shifts: In: 650 [I.V.:650] Out: 75 [Blood:75] Physical Exam: General: Patient comfortable, in no apparent distress. Awake, alert, oriented x3. Neck: Supple, no JVD. Lungs: Clear to auscultation bilaterally. Cardiac: Regular rate and rhythm, no murmurs, rub, or gallops. Abdomen: Soft, nontender, physiologic sounds. Extremities: Without edema. 2+ pulses. Good pulse and bruit over new right thigh graft. Skin: Warm, dry. Neurologic: No focal deficits. Data: Lab Results Component Value Date NA 140 03/03/2011 Lab Results Component Value Date CHLORIDE 100 03/03/2011 No results found for this basename: bun Lab Results Component Value Date POTASSIUM 4.3 05/03/2012 Lab Results Component Value Date CO2 25 03/03/2011 Lab Results Component Value Date CR 9.62* 05/03/2012 Lab Results Component Value Date NA 140 03/03/2011 NA 138 01/15/2011 Lab Results Component Value Date POTASSIUM 4.3 05/03/2012 POTASSIUM 5.1 10/20/2011 POTASSIUM 6.8* 10/20/2011 Lab Results Component Value Date CHLORIDE 100 03/03/2011 CHLORIDE 97 01/15/2011 Lab Results Component Value Date CO2 25 03/03/2011 CO2 32 01/15/2011 Lab Results Component Value Date CR 9.62* 05/03/2012 CR 13.23* 10/20/2011 No results found for this basename: bun Lab Results Component Value Date HGB 9.9* 05/03/2012 HGB 9.8* 03/03/2011 HGB 9.8* 01/15/2011 No results found for this basename: PH, pharterial, PO2, PQ6semgvijn, sat, PCO2, UCF8rljmknmc, HCO3,baseexcess, leila, beb Steven Styles MD (p [phone]) Alfredo Gutierrez MD - 05/04/2012 9:08 AM CDT Surgery Progress Note POD #1 s/p right groin loop graft S: No complaints O: AFVSS Incision C/D/I. No hematoma. Non-tender A/P: doing well. HD this am then d/c home. Alfredo Gutierrez MD, MD [facility] Educational Resource Center Teacher, G4 Pager: [phone], after 5 pm and on weekends please use answering service Rober Saravia MD - 05/04/2012 8:42 AM CDT Surgery Progress Note POD #1 S:No complaints. Minimal pain. Good appetite. O:Afebrile VSS Good pulse and thrill old upper arm AVF and new thigh access. Wd=A A/P: Doing well. Home today after dialysis. Will continue to use right upper arm AVF. Wm Rani HARPER documented in this encounter H&P Notes Rober Saravia MD - 05/08/2012 4:13 PM CDT documented in this encounter Procedure Notes Heidi Schuster RN - 05/04/2012 1:20 PM CDT Dialysis run x 3.5hrs via JACQUELINE with 15G needles with BFR 400CC on K2bath then K3 undqt0cl from pre sent K level noted PRE WT 71.5 POST 69KG hepatitis Status WNL Pre and post report with ANURAG MCKEONfruit or nut farmer review and EDU done with pt Pt ate lunch VSS during and post EPO/HECTOROL given no heparin used due to post surgery Right leg has good bruit/thrill on checks good pulse in foot/warm To room post via bed documented in this encounter Consult Notes Steven Styles MD - 05/04/2012 10:02 AM CDTAssociated Order(s): NEPHROLOGY IP CONSULT Pt well known to our group. Dialyzes at [facility] unit under Dr. Jack's care. Needs usual dialysis run today, after successful access surgery (femoral loop graft placement) yesterday. Pt stable this AM; right arm AVF patent. Will arrange for pt to run with usual orders. Will add noteduring dialysis. Can likely be discharged post-run, if he remains stable. Thanks, Steven Styles MD (p [phone]) documented in this encounter OR Notes OR Anesthesia - Rober Saravia MD - 05/08/2012 2:30 PM CDT documented in this encounter Miscellaneous Notes Plan of Care - bS Davila, LINDA - 05/04/2012 5:28 PM CDT Problem: Perioperative Period (Adult) Goal: Prevent/Manage Potential Problems Signs and symptoms of listed problems will be absent or manageable. Outcome: No Change VSS. Denies pain. Groin WNL. Thrill & Bruit WNL. Medications explained to pt and called pt's aunt to explain medication/d/c instructions. Pt left via w/c to home. Plan of Care - Negrita Alvarez RN - 05/04/2012 2:58 PM CDT Problem: IP GENERAL POC-ADULT,OB,BEHAVIORAL FVCPM Goal: Individualization/Patient-Specific Goal (Adult,OB,Behavioral 05/03/12: RIGHT GROIN LOOP GRAFT WITH CADAVER FEMORAL ARTERY 1. Pt is legally blind 2. Pain goal 0/10 Vital signs stable, denies any pain. Incision dry and intact with liquid bandage, cms and pulses present. Has a very good appetite. Patient to dialysis at 1130 a.m. Utilization Review - Lauren Matta MD - 05/04/2012 9:50 AM CDT [facility] Physician Advisor Review Date(s) Reviewed: May 04, 2012 Patient: Julio Cesar Sandhu Physician Advisor: Lauren Matta MD Under the authority of the Care Management Committee, the utilization review process indicated a secondary review on the above patient. The review outcome is based on review of the medical records, discussions with staff, and applying clinical experience noted on the date of the review. () Inpatient Status Appropriate - This patient's medical care is consistent with medical management for inpatient care and reasonable inpatient medical practice. (x) Observation Status Appropriate - This patient does not meet hospital inpatient criteria and is placed in observation status. If this patient's primary payer is Medicare and was admitted as an inpatient, Condition Code 44 should be used and patient status changed to observation. () Admission Status NOT Appropriate - This patient's medical care is not consistent with medical management for Inpatient or Observation Status. RATIONALE FOR DETERMINATION: Patient is a 47 year old with renal failure on dialysis. Had Right proximal thigh profunda femoris to greater saphenous vein, common femoral vein loop cadaveric superficial femoral artery access. INDICATIONS: Julio Cesar Sandhu is a 47-year-old patient on chronic hemodialysis who has a right upper arm arteriovenous fistula. This has required recent angioplasty and fistulogram revealed a central venous occlusion that could not be crossed with a wire in the superior vena cava. This fistula is still fu nctional, but will eventually fail. We felt the patient would benefit from a left thigh loop access.Due to his young age, I felt that a cadaveric superficial femoral artery would be much better than aPTFE graft. The patient comes to the operating today under informed consent. No complications post-op but does need dialysis run this morning. OBS appropriate as patients like him are higher risk for bleeding and he had heparin intra-op. This review was discussed with the rounder physician who concurred with the status change. The care of this patient was discussed with nursing/care management staff. The information on this document is developed [...] Chapter 1 and Chapter 6, section 70.4. Lauren Matta MD, [facility] Hospitalist gravity meter operator [facility] [phone] Plan of Care - Cristiana Vizcarra RN - 05/04/2012 6:26 AM CDT Problem: IP GENERAL POC-ADULT,OB,BEHAVIORAL FVCPM Goal: Individualization/Patient-Specific Goal (Adult,OB,Behavioral 05/03/12: RIGHT GROIN LOOP GRAFT WITH CADAVER FEMORAL ARTERY 1. Pt is legally blind 2. Pain goal 0/10 Outcome: No Change Pt running low grade temp throughout the night. 325mg of tylenol given and IS/C&DB encouraged, excellent appetite, CMS intact. Plan for dialysis today and possible d/c. Op Note - Rober Saravia MD - 05/03/2012 4:12 PM CDT Pre Press Proofer: Alfredo Gutierrez MD ([facility] Surgery Resident) POSTOPERATIVE DIAGNOSIS: Failing right upper arm arteriovenous fistula due to central venous stenosis with need of permanent hemodialysis access. POSTOPERATIVE DIAGNOSIS: Failing right upper arm arteriovenous fistula due to central venous stenosis with need of permanent hemodialysis access. PROCEDURE: Right proximal thigh profunda femoris to greater saphenous vein- common femoral vein loop cadaveric superficial femoral artery access. ANESTHESIA: General. PREOPERATIVE MEDICATIONS: Ancef 1 gm IV. INDICATIONS: Julio Cesar Sandhu is a 47-year-old patient on chronic hemodialysis who has a right upper arm arteriovenous fistula. This has required recent angioplasty and fistulogram revealed a central venous occlusion that could not be crossed with a wire in the superior vena cava. This fistula is still fu nctional, but will eventually fail. We felt the patient would benefit from a left thigh loop access.Due to his young age, I felt that a cadaveric superficial femoral artery would be much better than aPTFE graft. The patient comes to the operating today under informed consent. DESCRIPTION OF PROCEDURE: The patient was brought to operating room, induced under general anesthesia, orally intubated without difficulty. He was noted be relatively thin. A calf pneumatic compressionboot was placed on the left. Right thigh and leg were prepped and draped in the usual fashion. VASCULAR EXPOSURE: A curvilinear incision was made in the right groin. Dissection was carried down through minimal adipose tissue. We additionally identified the greater saphenous vein and traced this down to the saphenofemoral junction - common femoral vein. Several side branches were ligated with 3-0 silk suture, leaving the greater saphenous vein intact. We then identified the femoral vessels. To help prevent a steal syndrome, we dissected free the profundus femoral artery. This measured approximately 5 mm in diameter. It had some mild soft calcification. Superficial femoral artery was 6 mm in diameter and had essentially free of disease. Silastic vessel loops were placed. CADAVERIC LOOP GRAFT: A CryoLife excellent superficial femoral artery was thawed and prepped in the standard fashion. The inflow was approximately 6 mm nondistended and the outflow distal segment 4 mm in diameter. We gave the patient 5000 units of intravenous heparin. We tightened the vessel loops on the inflow the profundus femoral artery and a vascular clamp distally. A 1 cm long longitudinal arteriotomy was made. A small portion of the anterior wall of the artery was excised. The very thin plaquewas some friable. There was a good luminal diameter. We took the 4 mm portion of the superficial femoral artery and this was spatulated. End-to-side anastomosis was created with running 6-0 Prolene suture and loupe magnification. With release of the vessel loops, we did place 2 artery pledgeted 6-0 mattress sutures to reinforce the weaker wall of the profundus femoral artery. Excellent pulsatile flowwas noted. We then mapped out the size of loop on the thigh. The distal incision was made. With the aid of a Ryann-Wick tunneler, we brought the graft in a subcutaneous fashion with the arterial limb located laterally back in a gentle curve to the groin incision. A vascular clamp was applied to the common femoral vein and the vessel loop to the superficial femoral vein. We opened up the saphenofemoral junction for a length of approximately 1.5 cm. Our artery was controlled with a padded bulldog. This was then spatulated and end-to-side anastomosis was created with running 6-0 Prolene suture. With release of the padded bulldog - vascular clamp - vessel loops, we had an excellent palpable pulse and thrill within the graft which dilated up very nicely to a minimum of 5 mm on the arterial lateral inflow and almost 7 mm on the venous medial outflow. A small amount of Surgicel was placed around the arterial anastomosis to the weaker wall of the profundus femoral artery. The wounds were infiltrated with 0.5% Marcaine for postop analgesia. Subcutaneous tissue was closed with interrupted 3-0 Vicryl and the skin was closed with 4-0 Monocryl in subcuticular fashion. Dermabond was then placed over the wounds to help prevent contamination. The patient awoke upon the operating table. ESTIMATED BLOOD LOSS: Less than 20 cc. COMPLICATIONS: None. OPERATIVE FINDINGS: Slightly calcified weaker but excellent caliber and flow to the profundus femoral artery at our inflow anastomosis. Excellent outflow via the saphenofemoral junction, common femoralvein. We had a very nice CryoLife graft. The arterial inflow was located on the lateral aspect of the proximal thigh and the venous return on the medial aspect. ROBER SARAVIA MD MT: [id number] Name: JULIO CESAR SANDHU MRN: [id number] Account: [id number] : 1965 Procedure Date: 05/03/2012 Document: [id number] cc: [facility] GUTIERREZ MD documented in this encounter Plan of Treatment Not on filedocumented as of this encounter Procedures Procedure Name Priority Date/Time Associated Comments Diagnosis POTASSIUM STAT 05/04/2012 11:20 Results for this AM CDT procedure are i n the results section. HEMODIALYSIS SINGLE Routine 05/04/2012 10:30 TREATMENT SETUP AM CDT (SH/RH ONLY) DIALYSIS INPATIENT Routine 05/04/2012 9:59 AM CDT GLUCOSE BY METER Routine 05/04/2012 6:50 AM Resul ts for this CDT procedure are i n the results section. GLUCOSE BY METER Routine 05/04/2012 12:50 Results for this AM CDT procedure are i n the results section. GLUCOSE BY METER Routine 05/03/2012 9:17 PM Resul ts for this CDT procedure are i n the results section. GLUCOSE BY METER Routine 05/03/2012 7:00 PM Resul ts for this CDT procedure are i n the results section. GLUCOSE BY METER Routine 05/03/2012 4:37 PM Resul ts for this CDT procedure are i n the results section. GLUCOSE BY METER Routine 05/03/2012 1:47 PM Resul ts for this CDT procedure are i n the results section. CREATION, GRAFT, 05/03/2012 1:34 PM ESRD ARTERIOVENOUS, LOWER CDT EXTREMITY Special Needs dialysis POTASSIUM STAT 05/03/2012 11:02 AM CDT Resu lts for this procedure are in the results section . HEMOGLOBIN STAT 05/03/2012 11:02 AM CDT Resu lts for this procedure are in the results section . CREATININE STAT 05/03/2012 11:02 AM CDT Resu lts for this procedure are in the results section . documented in this encounter Results Potassium (05/04/2012 11:20 AM CDT) P athologist Signature Potassium 4.0 3.4 - 5.3 [place] mmol/L [facility] Specimen Anatomical Collection Method Collection Time Receive d Time (Source) Location / / Volume Laterality Blood specimen 05/04/2012 11:20 2 (specimen) AM CDT 11:46 AM CDT Steven Styles MD LAB - BLOOD ORDERABLES Performing Organization Address City/State/ZIP Code Phon e Number [facility] [address], [place] [address] [phone] [facility] (ABNORMAL) Glucose by meter (05/04/2012 6:50 AM CDT) P athologist Signature Glucose 221 (H) 60 - 99 POINT OF CARE mg/dL TEST, GLUCOSE Specimen Anatomical Collection Method Collection Time Receive d Time (Source) Location / / Volume Laterality 05/04/2012 6:50 AM 2 7:00 CDT AM CDT Rober Saravia MD LAB - BEAKER POCT Performing Organization Address City/State/ZIP Code Phon e Number [facility] POINT OF CARE TEST, GLUCOSE POINT OF CARE TEST, GLUCOSE (ABNORMAL) Glucose by meter (05/04/2012 12:50 AM CDT) P athologist Signature Glucose 206 (H) 60 - 99 POINT OF CARE mg/dL TEST, GLUCOSE Specimen Anatomical Collection Method Collection Time Receive d Time (Source) Location / / Volume Laterality 05/04/2012 12:50 05/04/2012 1:55 AM CDT AM CDT Rober Saravia MD LAB - BEXIANG POCT Performing Organization Address City/State/ZIP Code Phon e Number [facility] POINT OF CARE TEST, GLUCOSE POINT OF CARE TEST, GLUCOSE (ABNORMAL) Glucose by meter (05/03/2012 9:17 PM CDT) P athologist Signature Glucose 185 (H) 60 - 99 POINT OF CARE mg/dL TEST, GLUCOSE Specimen Anatomical Collection Method Collection Time Receive d Time (Source) Location / / Volume Laterality 05/03/2012 9:17 PM 2 CDT 11:35 PM CDT Rober Saravia MD LAB - [place] POCT Performing Organization Address City/State/ZIP Code Phon e Number FV POINT OF CARE TEST, GLUCOSE POINT OF CARE TEST, GLUCOSE Glucose by meter (05/03/2012 7:00 PM CDT) P athologist Signature Glucose 65 60 - 99 POINT OF CARE mg/dL TEST, HANDHELD METER Specimen Anatomical Collection Method Collection Time Receive d Time (Source) Location / / Volume Laterality 05/03/2012 7:00 PM 2 8:55 CDT PM CDT Rober Saravia MD LAB - [place] POCT Performing Organization Address City/[facility]/ZIP Code Phon e Number FV POINT OF CARE TEST, HANDHELD METER POINT OF CARE TEST, HANDHELD METER Glucose by meter (05/03/2012 4:37 PM CDT) P athologist Signature Glucose 92 60 - 99 POINT OF CARE mg/dL TEST, GLUCOSE Specimen Anatomical Collection Method Collection Time Receive d Time (Source) Location / / Volume Laterality 05/03/2012 4:37 PM 2 CDT 12:35 PM CDT Rober DEAN - [place] POCT Performing Organization Address City/[facility]/ZIP Code Phon e Number FV POINT OF CARE TEST, GLUCOSE POINT OF CARE TEST, GLUCOSE Glucose by meter (05/03/2012 1:47 PM CDT) P athologist Signature Glucose 95 60 - 99 POINT OF CARE mg/dL TEST, GLUCOSE Specimen Anatomical Collection Method Collection Time Receive d Time (Source) Location / / Volume Laterality 05/03/2012 1:47 PM 2 1:55 CDT PM CDT Rober DEAN - [place] POCT Performing Organization Address City/[facility]/ZIP Code Phon e Number FV POINT OF CARE TEST, GLUCOSE POINT OF CARE TEST, GLUCOSE Potassium (05/03/2012 11:02 AM CDT) P athologist Signature Potassium 4.3 3.4 - 5.3 [place] mmol/L [facility] LAB Specimen Anatomical Collection Method Collection Time Receive d Time (Source) Location / / Volume Laterality Blood specimen 05/03/2012 11:02 2 (specimen) AM CDT 11:12 AM CDT Yun Desai MD LAB - BLOOD ORDERABLES Performing Organization Address City/[facility]/ZIP Code Phon e Number [facility] [id number] [phone] [facility] LAB (ABNORMAL) Creatinine (05/03/2012 11:02 AM CDT) Analysis Performed At Patho logist Time Signature Creatinine 9.62 (H) 0.66 - [facility] 1.25 mg/dL [facility] LAB GFR Estimate 6 (L) >60 [facility] mL/min/1.[address] LAB GFR Estimate If 7 (L) >60 [place] mL/min/1.[address] LAB Specimen Anatomical Collection Method Collection Time Receive d Time (Source) Location / / Volume Laterality Blood specimen 05/03/2012 11:02 2 (specimen) AM CDT 11:12 AM CDT Yun Desai MD LAB - BLOOD ORDERABLES Performing Organization Address City/State/ZIP Code Phon e Number [facility] [id number] [phone] [facility] LAB (ABNORMAL) Hemoglobin (05/03/2012 11:02 AM CDT) P athologist Signature Hemoglobin 9.9 (L) 13.3 - 17.7 [place] g/dL [facility] LAB Specimen Anatomical Collection Method Collection Time Receive d Time (Source) Location / / Volume Laterality Blood specimen 05/03/2012 11:02 2 (specimen) AM CDT 11:12 AM CDT Yun Desai MD LAB - BLOOD ORDERABLES Performing Organization Address City/State/ZIP Code Phon e Number [facility] [id number] [phone] [facility] documented in this encounter Visit Diagnoses Diagnosis A-V fistula (H) Arteriovenous fistula, acquired ESRD (end stage renal disease) on dialys is (H) End stage renal disease documented in this encounter Administered Medications Inactive Administered Medications - up to 3 most recent administrations Medication Order MAR Action Action Date Dose Rate Site acetaminophen (TYLENOL) tablet 325 Given 05/04/2012 4:01 AM CDT 325 mg mg 325 mg, Oral, EVERY 4 HOURS PRN, mild pain, fever, Starting on Padmaja 05/04/12 at 0334, For splitting from Percocet amLODIPine (NORVASC) tablet 10 mg Given 05/04/2012 8:41 AM CDT 10 mg 10 mg, Oral, DAILY, First dose on Tue05/03/12 at 1800 Given 05/03/2012 8:01 PM CDT 10 mg B yxnxcwj-Q-mumcp acid (NEPHROCAPS) capsule 1 Given 05/04/20 12 5:00 PM CDT 1 mg mg 1 mg (1 capsule), Oral, DAILY WITH SUPPER, First dose on Tue05/03/12 at 1830 Given 05/03/2012 8:01 PM CDT 1 mg bisacodyl (DULCOLAX) EC tablet 5 mg Given 05/04/2012 8:41 AM CDT 5 mg 5 mg, Oral, 2 TIMES DAILY, First dose on Tue05/03/12 at 2100, DO NOT CRUSH. Given 05/03/2012 10:34 PM CDT 5 mg calcium acetate (PHOSLO) capsule 667 mg Given 05/04/2012 5:00 PM CDT 667 mg 667 mg, Oral, 3 TIMES DAILY WITH MEALS, First dose on Tue05/03/12 at 1800, Best if given with meals. Take with meals. Given 05/04/2012 8:41 AM CDT 667 mg Given 05/03/2012 8:02 PM CDT 667 mg doxercalciferol (HECTOROL) injection 1.5 Given 05/04/2012 12:45 PM CDT 1.5 mcg mcg 1.5 mcg, Intravenous, ONCE IN DIALYSIS/CRRT, On Tue05/04/12 at 1015, For 1 dose epoetin mauricio (EPOGEN,PROCRIT) injection Given 05/04/20 12:47 PM CDT 4,400 Units 4,400 Units 4,400 Units, Intravenous, ONCE IN DIALYSIS/CRRT, On Tue05/04/12 at 1015, For 1 dose, *Refrigerated. ferrous sulfate tablet 325 mg Given 05/04/2012 8:41 AM CDT 325 mg 325 mg, Oral, DAILY WITH BREAKFAST, First dose on Tue05/04/12 at 0900, Absorbed best on an empty stomach. If stomach upset occurs, can take with meals. folic acid (FOLVITE) tablet 1 mg Given 05/04/2012 8:41 AM CDT 1 mg 1 mg, Oral, DAILY, First dose on Tue05/03/12 at 1800 Given 05/03/2012 8:02 PM CDT 1 mg lactulose (CHRONULAC) solution 20 g Given 05/04/2012 8:41 AM CDT 20 g 20 g, Oral, DAILY, First dose on Tue05/03/12 at 1800 Given 05/03/2012 8:05 PM CDT 20 g lisinopril (PRINIVIL,ZESTRIL) tablet 40 mg Given 05/04/2012 8:41 AM CDT 40 mg 40 mg, Oral, DAILY, First dose on Tue05/03/12 at 1800, +++HOLD ON DAYS OF DIALYSIS++++ Given 05/03/2012 8:01 PM CDT 40 mg metoprolol (LOPRESSOR) tablet 50 mg Given 05/04/2012 8:41 AM CDT 50 mg 50 mg, Oral, 2 TIMES DAILY, First dose on Tue05/03/12 at 2100 Given 05/03/2012 10:34 PM CDT 50 mg sevelamer (RENVELA) tablet 800 mg Given 05/04/2012 8:41 AM CDT 800 mg 800 mg, Oral, DAILY, First dose on Tue05/03/12 at 1800, Take with meals. Given 05/03/2012 8:04 PM CDT 800 mg simvastatin (ZOCOR) tablet 40 mg Given 05/03/2012 10:35 PM CDT 40 mg 40 mg, Oral, AT BEDTIME, First dose on Tue05/03/12 at 2200 sodium chloride (PF) 0.9% PF flush 3 mL Given 05/03/2012 10:36 PM CDT 3 mLs 3 mL, Intravenous, EVERY 8 HOURS, First dose on Tue05/03/12 at 2200, to lock peripheral IV dormant line. Also Ordered Q1H PRN, Post-procedure documented in this encounter Active and Recently Administered Medications Times are shown in CDT. Scheduled Medication Order 05/02/2012 05/03/2012 05/04/2012 amLODIPine (NORVASC) tablet 10 mg (CANCELED) 2000 (Given - Provider: Lizabeth Hopper RN) 0841 (Given - Provider: Negrita Alvarez RN) 10 mg, Oral, DAILY, First dose on Tue05/03/12 at 1800 B vkfoasj-D-oqqev acid (NEPHROCAPS) capsule 1 mg (CANCELED) 2000 (Given - Provider: Lizabeth Hopper RN) 170 (Given - Provider: Sb Davila LINDA) 1 capsule = 1 mg, Oral, DAILY WITH SUPPER, First dose on 04/10 at 1830 bisacodyl (DULCOLAX) EC tablet 5 mg (CANCELED) 2233 (Given - Provider: Lizabeth Hopper, RN) 08 (Given - Provider: Negrita Alvarez, RN) 5 mg, Oral, 2 TIMES DAILY, First dose on Tue05/03/12 at 2100, DO NOT CRUSH. calcium acetate (PHOSLO) capsule 667 mg (CANCELED) 2001 (Given - Provider: Lizabeth Hopper, LINDA) 08 (Given - Provider: Negrita Alvarez, RN)1455 (Not Given - Provider: Negrita Alvarez, LINDA - Reason: Transfer to a procedural area)1700 (Given - Provider: Sb Davlia RN) 667 mg, Oral, 3 TIMES DAILY WITH MEALS, First dose on Tue05/03/12 at 1800, Best if given with meals. Take with meals. ceFAZolin (ANCEF) 1 g vial to attach to IVPB (COMPLETED) 1207 (Handoff - Provider: Rocio Hood RN)1355 (Given - Provider: Carter Pena APRN BILLET HEADER) 1 g, Intravenous, for 30 Minutes, PRE-OP /PRE-PROCEDURE, For 1 dose, Give first dose within 1 hour PRIOR to incision., Pre-procedure doxercalciferol (HECTOROL) injection 1.5 mcg (COMPLETED) 1015 (Due)1245 (Given - Provider: Heidi Schuster RN) 1.5 mcg, Intravenous, ONCE IN DIALYSIS, Padmaja 05/04/12 at 1015, For 1 dose epoetin mauricio (EPOGEN,PROCRIT) injection 4,400 Units (COMPLETED) 1015 (Due)1247 (Given - Provider: Heidi Schuster RN) 4,400 Units, Intravenous, ONCE IN DIALYS IS, Padmaja 05/04/12 at 1015, For 1 dose, *Refrigerated. ferrous sulfate tablet 325 mg (CANCELED) 840 (Given - Provider: Ngerita Alvarez, LINDA) 325 mg, Oral, DAILY WITH BREAKFAST, Firs t dose on Tue05/04/12 at 0900, Absorbed best on an empty stomach. If stomach upset occurs, can take with meals. folic acid (FOLVITE) tablet 1 mg (CANCELED) 2001 (Given - Provider: Lizabeth Hopper RN) 0841 (Given - Provider: Negrita Alvarez, LINDA) 1 mg, Oral, DAILY, First dose on Tue05/03/12 at 1800 lactulose (CHRONULAC) solution 20 g (CANCELED) 2004 (Given - Provider: Lizabeth Hopper RN) 0841 (Given - Provider: Negrita Alvarez RN) 20 g, Oral, DAILY, First dose on Tue05/03/12 at 1800 lisinopril (PRINIVIL,ZESTRIL) tablet 40 mg (CANCELED) 2000 (Given - Provider: Lizabeth Hopper RN) 0841 (Given - Provider: Negrita Alvarez, LINDA) 40 mg, Oral, DAILY, First dose on 03/10 at 1800, +++HOLD ON DAYS OF DIALYSIS++++ metoprolol (LOPRESSOR) tablet 50 mg (CANCELED) 2233 (Given - Provider: Lizabeth Hopper RN) 0841 (Given - Provider: Negrita Alvarez, LINDA) 50 mg, Oral, 2 TIMES DAILY, First dose on Tue05/03/12 at 2100 sevelamer (RENVELA) tablet 800 mg (CANCELED) 2003 (Given - Provider: Lizabeth Hopper RN) 0841 (Given - Provider: Negrita Alvarez, LINDA) 800 mg, Oral, DAILY, First dose on Tue05/03/12 at 1800, Take wit h meals. simvastatin (ZOCOR) tablet 40 mg (CANCELED) 2234 (Given - Provider: Lizabeth Hopper RN) 40 mg, Oral, AT BEDTIME, First dose on Tue05/03/12 at 2200 sodium chloride (PF) 0.9% PF flush 3 mL (CANCELED) 2235 (Given - Provider: Lizabeth Hopper RN) 0600 (Canceled Entry - Provider: Orders Generic Provider)1456 (Not Given - Provider: Negrita Alvarez RN - Reason: Transfer to a procedural area) 3 mL, Intravenous, EVERY 8 HOURS, First dose on Tue05/03/12 at 2200, to lock peripheral IV dormant line. Also Ordered Q1H PRN, Post-procedure PRN Medication Order 05/02/2012 05/03/2012 05/04/2012 acetaminophen (TYLENOL) tablet 325 mg (CANCELED) 0401 (Given - Provider: Cristiana Vizcarra, LINDA) 325 mg, Oral, EVERY 4 HOURS PRN, mild pa in, fever, Starting Padmaja 05/04/12 at 0334, For splitting from Percocet bupivacaine (MARCAINE) injection 0.5% (CANCELED) 1430 (Given - Provider: Rober Saravia MD) PRN, Starting 05/03/12 at 1430, Intra-procedure heparin 2,500 units in 250 mL 0.9% NaCl (CANCELED) 1430 (Given - Provider: Rober Saravia MD) PRN, Starting 05/03/12 at 1430, Intra-procedure heparin 5,000 units in lactated ringers soln 1,000mL (CANCEL ED) 1433 (Given - Provider: Rober Saravia MD - Comment: 5000 units Heparin/Lactated Ringers 500 ml Irrigate cadaver femoral artery) PRN, Starting 05/03/12 at 1433, Intra-procedure documented in this encounter Care Teams Shear Grinder Operator Relationship Specialty Start Date End Date Preet Huff PCP - General 06/24/11 documented as of this encounter
--- OUTSIDE RECORDS SUMMARY | 2022-09-01 20:25 | XMS_ITS | Encounter Summary ---
:1965 Author Organization [place] Address [address] [facility] [place] [address] Care Team Providers Name Role Phone Preet Huff Primary Care Provider Encounter Details Date Type Department Care Team Description 06/02/2012 Orders Only [facility] OmJaxon dyer Renal fa ilure (Primary [facility] MD Preet Dx) [address] [place] [address] [place] [address] [phone] Social History Tobacco Use Types Packs/Day Years [...] unspecified documented in this encounter Care Teams Job Honer Relationship Specialty Start Date End Date Preet Huff PCP - General 06/24/11 documented as of this encounter
--- OUTSIDE RECORDS SUMMARY | 2022-09-01 20:25 | XMS_ITS | Encounter Summary ---
:1965 Author Organization [place] Address [address] [facility] [place] [address] Care Team Providers Name Role Phone Preet Huff Primary Care Provider Encounter Details Date Type Department Care Team Description 05/03/2012 Anesthesia Event [facility] Den Jones PeriOP Ser carlos enrique Olivo MD [address] ANESTHESIA [address] [place] [address] [place] [address] [phone] Anesthesia Record Procedure Summary Procedure Name Responsible Anesthesia Start Anesthesia Stop Time Anesthesiologist Time RIGHT GROIN LOOP Den Jones MD 05/03/12 1349 05/03 1626 GRAFT WITH CADAVER FEMORAL ARTERY (Right: Leg) Events Date Time Event Comment 05/03/2012 1158 1349 An Start 1354 Quick Note Monitors on, pre O2, smooth IV induction, using glidescope, intubated easily 1618 Quick Note Spontaneous resp irations, follows command, extubated awake, adequate respiratory rate and tidal volume. To PACU with O2. 1626 An Stop Name Total ceFAZolin (ANCEF) 1 g vial to attach to IVPB 1 g Agents No agents on file. Blood No blood administrations on file. Lines, Drains, and Airways Type Details Placement Removal RETIRED: CVC Double 07/19/11; 1150; 14.5; 07/19/11 1150 by 08/10 1412 by Lumen [id number]; Tunneled; Right; Jose, Stevenson Barrett, Internal jugular; Dr. LINDA Fuentes; Sutured; Flouroscopy; [...] by 08/10/12 1413 by Right; Dr. Olmstead; Radha, Carolyn Villegas, Emeterio cker, 08/10/12; 1413 LINDA Gonzalez Peripheral IV 05/03/12; 1212; 18 G; 05/03/12 1212 by 05/04/12 1724 by Lower forearm; Rocio Hood Andrew, LINDA Chlorhexidine Carlos, RN RETIRED ETT 05/03/12; 1354; Airway 05/03/12 1354 by 05/03/12 1618 by Size: 8; Cuffed; Oral HrubCarter bonds M, Victoria Pena M, endotracheal tube; Blade GARDEN CONSULTANT MAINTENANCE SUPERVISOR ELECTRICAL GARDEN CONSULTANT CR NA Type: Other (comment) (glidescope); Blade Size: 4; Place by: aman rust; Insertion Attempts: 1; Secured at (cm)to lip: 23 cm; Breath Sounds: Equal, clear and bilateral; End Tidal CO2: Present; Dentition: Intact; Grade View of Cords: 1; Airway Adjuncts: Hoffman scope Incision/Surgical Site 05/03/12; 1600; Right; 05/03/12 1600 by 1 11/18/15 1120 by Groin; 09/17/16; 1120 Monserrat Blake, LINDA skaggs, Megan Thomas, RN documented in this encounter Social History Tobacco Use Types Packs/Day Years Used Date Smoking Tobacco: Never Smokeless Tobacco: Never Alcohol Use Standard Drinks/Week Comments No 0 (1 standard drink = 0.6 oz pure alcoho l) Sex Assigned at Date Recorded Not on file documented as of this encounter OR Notes Anesthesia Postprocedure Evaluation - Den Jones MD - 05/03/2012 4:50 PM CDT Anesthesia Post-Evaluation Note Patient: Herminio Victor Patient location: PACU Procedure(s) Performed: Procedure(s) with comments: CREATE GRAFT LOOP ARTERIOVENOUS LOWER EXTREMITY - RIGHT GROIN LOOP GRAFT WITH CADAVER FEMORAL ARTERY Anesthesia type: General Patient Condition Respiratory Function (RR / SpO2 / Airway Patency): Satisfactory Cardiac Function (HR / Rhythm / BP): Satisfactory Mental Status: Satisfactory Temperature: Satisfactory Pain Control: Satisfactory PONV: None Beta-Jh Therapy: None indicated Hydration Status: Satisfactory Last Vitals: Filed Vitals: 05/03/12 1051 05/03/12 1623 05/03/12 1630 BP: 125/66 149/78 133/74 Temp: 98.7 ??F (37.1 ??C) 97.2 ??F (36.2 ??C) Resp: 16 21 20 SpO2: 100% 99% 100% Additional Comments: Anesthesia Preprocedure Evaluation - Den Jones MD - 05/03/2012 11:29 AM CDT Anesthesia Evaluation history and physical reviewed . Pt has had prior anesthetic. No history of anesthetic complications ROS/MED HX Pulmonary: (+) sleep apnea uses CPAP Neurologic: Comment: Developmental delay Cardiovascular: Comment: dyslipidemia (+) hypertension . . (-) syncope METS/Exercise Tolerance: Hematologic: Musculoskeletal: GI/Hepatic: (+) GERD Renal: (+) chronic renal disease type: ESRD Pt requires dialysis type: Hemodialysis Pt has no history of transplant Endo: (+) type II DM Diabetic complications: nephropathy neuropathy retinopathy gastroparesis, (-) Type I DM Psychiatric: Infectious Disease: Other: Comment: Legally blind Physical Exam Normal systems: cardiovascular and pulmonary Airway Mallampati: IV TM distance: >3 FB Neck ROM: full Dental (+) missing Comment: edentulous Cardiovascular Pulmonary Anesthesia Plan ASA Score 4 . Plan for General and ETT with Intravenous induction. Maintenance will be Balanced. Routine analgesia and antiemetics to be used for post- operative care. Anesthetic plan, risks, benefits and alternatives discussed with: patient or business center representative. LMA, difficult airway cart for back-up, check blood sugar hourly . documented in this encounter Miscellaneous Notes Anesthesia Care Transfer Note - Carter Pena APRN CRNA - 05/03/2012 4:26 PM CDT Anesthesia Care Transfer Note Patient: Herminio Victor Transferred to: PACU Patient vital signs: stable Airway: none documented in this encounter Plan of Treatment Not on filedocumented as of this encounter Visit Diagnoses Not on filedocumented in this encounter Administered Medications Inactive Administered Medications - up to 3 most recent administrations Medication Order MAR Action Action Date Dose Rate Site ceFAZolin (ANCEF) 1 g vial to attach Given 05/03/2012 1:55 PM CD T 1 g to IVPB Routine, 1 g, Intravenous, PRE-OP/PRE-PROCEDURE, Starting on Tue05/03/12 at 1048, For 1 dose, Give first dose within 1 hour PRIOR to incision., Pre-procedure documented in this encounter Care Teams Block Engraver Relationship Specialty Start Date End Date Preet Huff PCP - General 06/24/11 documented as of this encounter
--- OUTSIDE RECORDS SUMMARY | 2022-09-01 20:25 | XMS_ITS | Encounter Summary ---
:1965 Author Organization [place] Address [address] [facility] [place] [address] Care Team Providers Name Role Phone Preet Huff Primary Care Provider Encounter Details Date Type Department Care Team Description 06/28/2012 Hospital Encounter [facility] Jaxon Saravia Re nal failure [facility] MD Preet [address] [place] [address] [place] [address] [phone] (Wo rk) Social History Tobacco Use Types Packs/Day Years Used Date Smoking Tobacco: Never Smokeless Tobacco: Never Alcohol Use Standard Drinks/Week Comments No 0 (1 standard drink = 0.6 oz pure alcoho l) Sex Assigned at Date Recorded Not on file documented as of this encounter Medications at Time of Discharge Medication Sig Dispensed Refills Start Date End Date b tdicdxo-F-gckht acid Take 1 capsule by 0 03/04/2016 [...] tablet daily. documented as of this encounter Plan of Treatment Not on filedocumented as of this encounter Procedures Procedure Name Priority Date/Time Associated Diagnosis Comme darell VUS US ART-VENOUS Routine 06/28/2012 2:34 PM Renal failure Res ults for this DIALYSIS GRAFT CDT procedure are in the results section. documented in this encounter Results US art-venous dialysis graft (vascular lab) (06/28/2012 2:34 PM CDT) Anatomical Region Laterality Modality Ultrasound Specimen (Source) Anatomical Collection Method Collection Time Re ceived Time Location / / Volume Laterality 06/28/2012 2:34 PM CDT Impressions 06/29/2012 5:40 PM CDT [facility] ARTERIOVENOUS DIALYSIS GRAFT ?? 06/28/2012 HISTORY: ??47-year-old male with cadaver loop dialysis graft. FINDINGS: ??The right thigh loop graft w as placed on May 03, 2012. The graft is patent. Arterial inflow is patent. Minimal velocity elevation of the mid portion of the igor t measuring 176/11 cm/sec. At the distal end venous aspect of the igor t, there is velocity elevation measuring 499/326 cm/sec and v isible diameter of 2.6 mm. Remainder of the graft appears widely pa tent. IMPRESSION: ??Moderate-focal stenosis wi th velocity elevation and visible diameter narrowing in the distal /venous outflow segment of the loop graft. Jaxon Saravia MD IMG US ORDERABLES documented in this encounter Visit Diagnoses Diagnosis Renal failure Renal failure, unspecified documented in this encounter Care Teams Calender Let Off Helper Relationship Specialty Start Date End Date Preet Huff PCP - General 06/24/11 documented as of this encounter
--- OUTSIDE RECORDS SUMMARY | 2022-09-01 20:25 | XMS_ITS | Encounter Summary ---
:1965 Author Organization [facility] Address [address] [place] [address] Care Team Providers Name Role Phone Preet Huff Primary Care Provider Reason for Visit Auth/Cert - Closed Specialty Diagnoses / Procedures Referred By Contact Refer red To Contact Oncology Diagnoses Chronic Renal Failure [id number] Sh 88 Oncology Procedures IR 1100 Fistula declot poss Tunnel cather placement [address] [place] [address] Phone: Referral ID Status Reason Start Date Expiration Date Visits Requ ested Visits Authorized [id number] Closed 08/04/2012 01/31/2013 1 1 Encounter Details Date Type Department Care Team Description 08/03/2012 - [facility] CRF (ch ronic renal failure) (Primary Dx); 08/05/2012 Encounter Ariane Andrade MD ESRF (end stage renal failure) (H); Oncology [facility] AVF (arteriovenous fistula) (H); [address], RADIOLOGIC CON S A-V fistula (H); [address] [facility] Clotted dialysis access (H) [address] [place] [address] [id number] [place], [place] [phone] [id number] Social History Tobacco Use Types Packs/Day Years Used Date Smoking Tobacco: Never Smokeless Tobacco: Never Alcohol Use Standard Drinks/Week Comments No 0 (1 standard drink = 0.6 oz pure alcoho l) Sex Assigned at Date Recorded Not on file documented as of this encounter Last Filed Vital Signs Vital Sign Reading Time Taken Comments Blood Pressure 106/56 08/05/2012 12:28 PM CDT Pulse 76 08/05/2012 8:10 AM CDT Temperature 36.4 ??C (97.6 ??F) 08/05/2012 12:28 PM CDT Respiratory Rate 17 08/05/2012 12:28 PM CDT Oxygen Saturation 98% 08/05/2012 12:28 PM CDT Inhaled Oxygen Concentration - - Weight 71.7 kg (158 lb 1.1 oz) 08/05/2012 11:40 AM CDT Height 162.6 cm (5' 4) 08/03/2012 8:12 PM CDT Body Mass Index 27.13 08/03/2012 8:12 PM CDT documented in this encounter Discharge Summaries Wojciech Holman MD - 08/05/2012 9:53 AM CDT DISCHARGE DIAGNOSES: 1. End-stage renal disease, dialysis-dependent. 2. Recurrent thrombosis, right femoral vein loop, cadaveric superficial femoral artery graft initially placed on 05/03/2012. 3. Status post declot on 3 separate occasions within the last week. 4. Hypertension. 5. Diabetes. 6. Bilateral occluded internal jugular veins. PROCEDURES PERFORMED: 1. Declot procedure under the direction of Interventional Radiology performed 08/03/2012 during the course of this admission. Previously performed on 07/31 and 08/01. 2. Inpatient hemodialysis. CONSULTANTS: 1. Interventional Radiology. 2. Dr. Rober Saravia. HOSPITAL COURSE: Julio Cesar Sandhu was admitted from Interventional Radiology after his third successfuldeclot procedure on his cadaveric graft in his right groin. He was placed on a heparin drip to maintain patency and initiated on warfarin therapy. He had 3 successful dialyses subsequent to declot. These were performed on 08/03, 08/04, and 08/05/2012. The patient had an additional dose of Coumadin 10 mg on Tuesday, 08/04, a second dose on Sunday 08/05 of 5 mg. He will be discharged on Coumadin 5 mg p.o. q. day with INR checks to be done in the [facility] dialysis unit beginning early next week. His heparin drip was discontinued and he was given a single dose of Lovenox 30 mg prior to discharge. He will continue as noted on warfarin, aspirin, and Plavix. The latter 2 will continue for approximately 1 week until his INR becomes therapeutic. Patient was seen by Dr. Saravia and a tentative plan for reocclusion exists and it may include placement of the loop graft. DISPOSITION: Discharged under his own care to home with followup outpatient at [facility]. Next day scheduled would be 08/08/2012. DISCHARGE MEDICATIONS: Remain unchanged with the exception of the addition of warfarin 5 mg p.o. q. day. Wojciech JACK MD [place]: [facility] [place] Name: JULIO CESAR SANDHU Account: [id number] : 1965 Admit Date: [id number] Discharge Date: 08/05/2012 Document: [id number] cc: [facility] RESSURE THERAPIST documented in this encounter Discharge Instructions Discharge InstructionsSabrina Alberto RN - 08/05/2012 1:42 PM CDT You are here for Need for dialysis, likely need for anticoagulation in the aftermath of his third declot procedure. You had dialyzed on 08/05/12 Follow up your primary care in 1-2 weeks, Keep your dialysis port clean and dry at all times. No blood pressure or blood draw on that extremity AttachmentsThe following attachments cannot be sent through Care Everywhere. Caring for Your Hemodialysis AccessHemodialysisDischarge Instructions: Taking Coumadin (Warfarin)Taking??Coumadindocumented in this encounter Medications at Time of Discharge Medication Sig Dispensed Refills Start Date End Date b otlyxvc-W-pcmia acid Take 1 capsule by 0 03/04/2016 [...] mouth 0 12/16/2017 MG tablet every evening clopidogrel (PLAVIX) 75 Take 1 tablet by 5 tablet 0 201108/10/2012 MG tabletIndications: mouth daily. ESRF (end stage renal failure) (H), AVF (arteriovenous fistula) (H) FOLIC ACID PO Take by mouth. 0 012 HYDROcodone-acetaminophe Take 1 tablet by 20 tablet 0 05/0408/10/2012 n 5-325 MG per mouth every 6 hours tabletIndications: A-V as needed for pain. fistula (H) Warfarin Sodium 1 each daily. 30 each 0 08/05/20122011 (WARFARIN THERAPY REMINDER)Indications: CRF (chronic renal failure), AVF (arteriovenous fistula) (H), A-V fistula (H), Clotted dialysis access (H) documented as of this encounter Progress Notes Shirley Trivedi LICSW - 08/05/2012 2:26 PM CDT SULY Pérez Pt has orders to discharge home today. Transport scheduled for 1400. SULY informed pt and contactedhis sister who he lives with. P. No other needs identified. AKT Heidi Hilliard RN - 08/05/2012 2:15 PM CDT Patient A/O x4, continues to have flat affect. No c/o pain. Went to dialysis at 0730 this morning and tolerated well. Up independently in room. Tolerated breakfast and lunch well. Right groin graft dressing C/D/I. Heparin running at 500 units/hour. Heparin drip d/c'd at 1330. Lovenox and warfarin given per MD verbal order. No c/o pain, dizziness, n/v upon discharge. Patient discharged to family member's house at 1415 via transport. Wojciech Holman MD - 08/05/2012 9:37 AM CDT Renal Medicine Inpatient Dialysis Note Assessment/Plan: Admitted post third declot in four days. On heparin drip to maintain fistula patency 1. ESRD -TTHS at [facility] -under dialyzed based on recent access issues 2. Vascular access -limited options -bilateral occluded jugular veins precludes tunneled catheter placement -begin warfain 3. Anemia -EPO 4. HTN 5. DM Seen while on dialysis Received single dose coumadin discharge post dialysis Give single dose of lovenox prior to discharge Interval History: Access cannulated. 15g needles. BRF 350 ml/min with venous pressure 200 range Comfortable. Denies pain ROS GENERAL: NAD, No fever,chills E/M: NEGATIVE for ear, mouth and throat problems R: NEGATIVE for significant cough or SOB CV: NEGATIVE for chest pain, palpitations GI: NEGATIVE for abdominal pain, heartburn, nausea, vomiting or change in bowel pattern EXT: no change edema ROS otherwise negative Dialysis Parameters: Reviewed Filed Vitals: 08/03/12201108/04/12 0724 08/04/12 1155 08/05/12 0500 Weight: 74.617 kg (164 lb 8 oz) 74.6 kg (164 lb 7.4 oz) 71.6 kg (157 lb 13.6 oz) 73.2 kg (161 lb 6 oz) 08/05/12 0730 Weight: 73.2 kg (161 lb 6 oz) I/O last 3 completed shifts: In: 299.28 [P.O.:180; I.V.:119.28] Out: 3000 [Other:3000] Temp: [97.6 ??F (36.4 ??C)-99.8 ??F (37.7 ??C)] 97.6 ??F (36.4 ??C) Pulse: [76] 76 Heart Rate: [69-89] 78 Resp: [15-18] 15 BP: (75-134)/(41-78) 117/49 mmHg SpO2: [99 %-100 %] 100 % Current Weight: 72.3 Dry Weight: 71.5 Dialysis Temp: 36.5 ??C Access Device: AVF Access Site: right groin Dialyzer: Optiflux 160 Dialysis Bath: 3 Sodium Profile: n UF Goal: 2 Blood Flow Rate (mL/min): 350 Total Treatment Time (hrs): 3.5 Heparin: Low dose as required EPO dose: y Zemplar: n IV Fe: n Medications and Allergies: Reviewed Physical Exam: Seen and examined during course of dialysis run Filed Vitals: 08/05/12 0900 08/05/12 0915 08/05/12 0930 BP: 114/58 116/78 117/49 Pulse: Temp: Resp: SpO2: 100% 100% GENERAL: awake, alert, follows HEENT: NC/AT, PERRLA, EOMI, non icteric, pharynx moist without lesion NECK: supple, no masses or adenopathy RESP: symmetric excursion, good effort, lungs clear - no rales, rhonchi or wheezes CV: RRR, normal S1 S2 ABDOMEN: S/NT, BS present MS: no edema EXT: Access canulated without issue Data: Lab 08/05/12 0820 08/04/12 0800 08/03/12 1305 08/01/12 1400 08/01/12 1345 NA 136 -- 135 140 Unsatisfactory specimen - hemolyzed Charge credited POTASSIUM 3.9 4.0 5.6* 4.1 -- CHLORIDE 95 -- 98 104 Unsatisfactory specimen - hemolyzed Charge credited CO2 29 -- 19* 22 Unsatisfactory specimen - hemolyzed Charge credited ANIONGAP 13 -- 19* 14 Unsatisfactory specimen - hemolyzed Charge credited GLC 132* -- 73 87 Unsatisfactory specimen - hemolyzed Charge credited BUN 54* -- 124* 62* Unsatisfactory specimen - hemolyzed Charge credited CR 8.18* -- 17.64* 9.76* Unsatisfactory specimen - hemolyzed Charge credited GFRESTIMATED 7* -- 3* 6* Unsatisfactory specimen - hemolyzed Charge credited GFRESTBLACK 9* -- 4* 7* Unsatisfactory specimen - hemolyzed Charge credited JON 8.4* -- 8.9 8.6 Unsatisfactory specimen - hemolyzed Charge credited Lab 08/05/12 0820 08/04/12 0800 08/01/12 1345 PHOS 3.6 -- -- HGB 8.0* 8.0* 9.5* Lab 08/05/12 0820 INR 1.24* G Jagdeep Holman [facility] Nephrology [phone] Angie Higginbotham RN - 08/05/2012 9:14 AM CDT Potassium Date Value Range Status 08/05/2012 3.9 3.4 - 5.3 mmol/L Final ] HGB 8.0 08/05/2012 Weight: 73.2 kg (161 lb 6 oz) POST WT 71.7kg DIALYSIS PROCEDURE NOTE Patient dialyzed for 3.5 hrs. on a 3 K bath with a net fluid removal of 2L. A BFR of 300 ml/min was obtained via a RT thigh Graft using 15guage needles. The patient was seen by Dr. Jack during the treatment. Total heparin received during the treatment: 0 units.Pt is receiving Heparin 500units/hr IV Sites held x 15 min then pressure drsgs applied. Meds Given:EPO and Hectoral Complications: High venous pressures at times. Procedure and ESRD teaching done and questions answered. See flowsheet in EPICfor further details. Dialyzer Lot #[id number] Blood line Lot #[id number] Hepatitis B surface Ag:neg Redrawn 08/04/12 Hepatitis B surface Ab:suscept 04/25/12 Redrawn 08/04/12 Report received from:Emi Harden R.N. Report given to:Heidi Hilliard R.N. Outpatient Dialysis at [facility] Angie Higginbotham RN - 08/05/2012 8:46 AM CDT DIALYSIS PRE-ASSESSMENT: All machine safety checks completed and passed. Total chlorine checks less than 0.1ppm Revaclear Dialyzer # [id number] Blood lines #[id number] All connections secured, saline line double clamped. Venous and arterial parameters set. Good circulation to fistula arm LOC:Pt alert Lungs clear Skin warm and dry Report rec'd from LINDA Ramsey R.N. [facility]{ Shirley Trivedi LICSW - 08/04/2012 11:00 AM CDT SULY TUBBS received call from Dr Holman stating pt could return home on Tuesday after his dialysis session. He requested transport be scheduled with [facility] per pt request. Andre TUBBS contacted Transport [phone] and spoke to Ruthie. Wheelchair transport scheduled for 08/05/12 at 1400. Manager Reliability will come to pt's room to pick him up. A. Pt at dialysis P. SULY following to confirm transport in am Angie Higginbotham RN - 08/04/2012 9:23 AM CDT Potassium Date Value Range Status 08/03/2012 5.6* 3.4 - 5.3 mmol/L Final ] HGB 8.0 08/04/2012 Weight: 74.6 kg (164 lb 7.4 oz) DIALYSIS PROCEDURE NOTE Patient dialyzed for 3.5 hrs. on a 2 K bath with a net fluid removal of 3L. A BFR of 400 ml/min was obtained via a RT thigh graft using 15guage needles. Attempted 2 venous sticks with the second one successful first needle with high pressures. The patient was seen by Dr. Jack during the treatment. Total heparin received during the treatment: 0 units. Sites held x 20 min then pressure drsgs applied.Meds Given:EPO and Hectoral Complications: Venous needle with high pressures. Procedure and ESRD teaching done and questions answered. See flowsheet in [facility] for further details. Dialyzer Lot #[id number] Blood line Lot #[id number] Hepatitis B surface Ag:neg redrawn 08/04/12 Hepatitis B surface Ab:suscept redrrawn 08/04/12 Report received from:Emi Harden R.N. Report given to:Maura Alvarez R.N. [facility] Angie Higginbotham RN - 08/04/2012 9:22 AM CDT DIALYSIS PRE-ASSESSMENT: All machine safety checks completed and passed. Total chlorine checks less than 0.1ppm Revaclear Dialyzer # [id number] Blood lines # [id number] All connections secured, saline line double clamped. Venous and arterial parameters set. Good circulation to fistula arm LOC:Pt alert Lungs clear Skin warm and dry Report rec'd from LINDA Ramsey R.N. [facility]{ Wojciech Holman MD - 08/04/2012 8:36 AM CDT Renal Medicine Inpatient Dialysis Note Assessment/Plan: Admitted post third declot in four days. On heparin drip to maintain fistula patency 1. ESRD -TTHS at [facility] -under dialyzed based on recent access issues 2. Vascular access -limited options -bilateral occluded jugular veins precludes tunneled catheter placement -begin warfain 3. Anemia -EPO 4. HTN 5. DM Seen while on dialysis Continue heparin gtt overnight Begin coumadin AM dialysis Probable discharge post dialysis May need dose or two of Lovenox Interval History: Access cannulated. 15g needles. BRF 350 ml/min with venous pressure 200 range Comfortable. Denies pain ROS GENERAL: NAD, No fever,chills E/M: NEGATIVE for ear, mouth and throat problems R: NEGATIVE for significant cough or SOB CV: NEGATIVE for chest pain, palpitations GI: NEGATIVE for abdominal pain, heartburn, nausea, vomiting or change in bowel pattern EXT: no change edema ROS otherwise negative Dialysis Parameters: Reviewed Filed Vitals: 08/03/12201108/04/12723 Weight: 74.617 kg (164 lb 8 oz) 74.6 kg (164 lb 7.4 oz) I/O last 3 completed shifts: In: - Out: 3500 [Other:3500] Temp: [97.7 ??F (36.5 ??C)-99.9 ??F (37.7 ??C)] 98.8 ??F (37.1 ??C) Heart Rate: [56-81] 80 Resp: [12-21] 16 BP: (93-195)/(55-98) 113/61 mmHg SpO2: [95 %-100 %] 100 % Current Weight: 74.6 Dry Weight: 75 Dialysis Temp: 36.5 ??C Access Device: AVF Access Site: right groin Dialyzer: Optiflux 160 Dialysis Bath: 2 Sodium Profile: n UF Goal: 3 Blood Flow Rate (mL/min): 350 Total Treatment Time (hrs): 3.5 Heparin: Low dose as required EPO dose: y Zemplar: n IV Fe: n Medications and Allergies: Reviewed Physical Exam: Seen and examined during course of dialysis run Filed Vitals: 08/03/12201808/04/12 0200 08/04/12723 BP: 135/59 143/73 113/61 Temp: 98.3 ??F (36.8 ??C) 99.9 ??F (37.7 ??C) 98.8 ??F (37.1 ??C) Resp: 16 16 16 SpO2: 95% 97% 100% GENERAL: awake, alert, follows HEENT: NC/AT, PERRLA, EOMI, non icteric, pharynx moist without lesion NECK: supple, no masses or adenopathy RESP: symmetric excursion, good effort, lungs clear - no rales, rhonchi or wheezes CV: RRR, normal S1 S2 ABDOMEN: S/NT, BS present MS: no edema EXT: Access canulated without issue Data: Lab 08/03/12 1305 08/01/12 1400 08/01/12 1345 NA 135 140 Unsatisfactory specimen - hemolyzed Charge credited POTASSIUM 5.6* 4.1 Unsatisfactory specimen - hemolyzed Charge credited CHLORIDE 98 104 Unsatisfactory specimen - hemolyzed Charge credited CO2 19* 22 Unsatisfactory specimen - hemolyzed Charge credited ANIONGAP 19* 14 Unsatisfactory specimen - hemolyzed Charge credited GLC 73 87 Unsatisfactory specimen - hemolyzed Charge credited BUN 124* 62* Unsatisfactory specimen - hemolyzed Charge credited CR 17.64* 9.76* Unsatisfactory specimen - hemolyzed Charge credited GFRESTIMATED 3* 6* Unsatisfactory specimen - hemolyzed Charge credited GFRESTBLACK 4* 7* Unsatisfactory specimen - hemolyzed Charge credited JON 8.9 8.6 Unsatisfactory specimen - hemolyzed Charge credited Lab 08/01/12 1345 PHOS -- HGB 9.5* G Jagdeep Holman [facility] [phone] Lucille Becerra RN - 08/04/2012 7:58 AM CDT Observation Brochure given to patient and Observation Status explained. tacy Okeefe RN - 08/03/2012 4:24 PM CDT DIALYSIS PROCEDURE NOTE POTASSIUM 5.6 08/03/2012 HGB 9.5 08/01/2012 Pt dialyzed for 3.5 hrs via Rt leg graft, sheaths left in from declot in IR, with a net volume removal of 2.5 L on K2 bath. Heparin given on run: 3000 units Complications: asymptomatic hypotension, resolved with NS bolus and decrease in UF goal Medications given: Epogen 7000 units, Hectorol 0.5 mcg Pt seen by Dr. Anders during treatment EDW 75 kg, post run weight ?? no pre run weight Pt received education on procedure and ESRD while on dialysis. Post run report given to Ryann Swain, pt primary RN on 8th floor See [facility] dialysis flowsheet for details of dialysis run and post run report hand off. . Post run pt assessment: Lungs: clear Cardiac: regular, on telemetry for run LOC: alert, somulent GI/Abd: + BS Access: Sheaths pulled, + pulse through graft post run, hemostasis achieved in 15 minutes Edema: none Stacy Del Rio RN - 08/03/2012 3:33 PM CDT PRE PROCEDURE DIALYSIS NOTE Pre treatment report received from ENMANUEL Colvin technology director machine safety checks Dialyzer # [id number] Tubing # [id number] All lines secured, saline line double clamped, venous and arterial parameters set and air detector engaged and time out taken Patient Assessment Access: Thigh graft, patent per IR, sheaths left in from declot procedure, + pulse through graft, sheaths patent on arrival Lungs: clear, diminished in bases Cardiac: regular Edema: none LOC: alert, quiet, oriented to self, and place GI/Abdomen: + BS in all 4 quadrants Hepatitis B status: Antigen negative 12/29/10, Antibodies immune 04/25/12 Tyrel Gonzalez RN - 08/03/2012 1:43 PM CDT Interventional Radiology Intra-procedural Nursing Note Patient Name: Julio Cesar Sandhu Today's Date: August 03, 2012 Start Time: 1350 End of procedure time: 5 Procedure: Right lower extremity dialysis fistulagram; possible right tunneled dialysis catheter placement. Report given to: Inpatient Dialysis Time pt departs: 1525 1350 - Patient to IR 2 per cart for right lower extremity dialysis fistulagram r/t thrombosed access. Procedure discussed with patient per Dr Olmstead; consented. Prepped with Chloraprep (CHG 2%); draped as usual in supine position for right thigh fistula access. 151 - Procedure completed; tolerated well. Venous and Arterial dialysis access sheaths left intact for immediate inpatient dialysis; Sheaths flushed with Heparin 250 units per sheath. Sheaths secured with Steristrips and covered with Tegaderm dressings. Report called to Inpatient Dialysis. Tyrel Gonzalez RN documented in this encounter H&P Notes Danis Anders MD - 08/03/2012 4:35 PM CDT CHIEF COMPLAINT: Clotted vascular access for dialysis. HISTORY OF PRESENT ILLNESS: Julio Cesar Sandhu is a 46-year-old dialysis patient from the [facility] unit followed by Dr. Holman. He has had failure of a right upper arm fistula and then had a right groin AV graft placed. This has had recently recurrent clotting. Today he was brought into interventional Radiology with a clotted graft again and it was successfully declotted. Sheaths were left in place and he was transferred to the dialysis unit for admission to observation and dialysis. He underwent todaymechanical thrombectomy and PAINT MIXER HAND. He has a history of occluded internal jugular veins bilaterally which would make tunneled catheter placement difficult. PAST MEDICAL HISTORY: End-stage renal disease on hemodialysis, hypertension, blindness, diabetes, obstructive sleep apnea on CPAP and DVT. PAST SURGICAL HISTORY: Include right upper arm fistula, failed right groin graft, TURP and circumcision and laparotomy. ALLERGIES: Aspirin. MEDICATIONS: Folate, lisinopril, Nephrocaps, PhosLo, Chronulac, metoprolol and Zocor. SOCIAL HISTORY: He lives with his aunt. He is single. He does not have children. Does not smoke. FAMILY HISTORY: Positive for colon cancer in a grandmother. REVIEW OF SYSTEMS: The patient is sedated and somnolent and unable to give a history. PHYSICAL EXAMINATION: The patient is afebrile, pulse is 64, respiratory rate is 20. Blood pressure is 195/95 dropping to 159/91. He is somnolent. HEENT: Head shows no trauma. The eyes show pupils that are reactive to light. Mouth shows he is edentulous. NECK: Supple. LUNGS: Show clear breath sounds. CARDIAC: Regular rate and rhythm, normal S1, S2, no murmur, rub or gallop. ABDOMEN: Shows normal bowel sounds, soft and nontender, no hepatosplenomegaly. GENITOURINARY: Normal male pattern. EXTREMITIES: Upper extremities showed normal nails, joints and pulses. Lower extremities show good pulses, no edema. There is a loop graft in the right groin with sheaths in place. NEUROLOGIC: He is somnolent. His cranial nerves are symmetric. LABORATORY DATA: Today, his BUN was 124, creatinine 17.64, bicarbonate 19, potassium 5.6, calcium 8.9. On 08/01, his hemoglobin was 9.5. IMPRESSION: 1. Failed vascular access with now declot. We will put patient on heparin and have Dr. Saravia see thepatient to see if any further revision needs to be done. He will need dialysis today. His labs reflect under dialysis due to recent access problems. Will dialyze him for 3-1/2 hours at a 400 blood flowrate increasing to 500 as able. We will do 3 kg ultrafiltration on a 2K bath. We will give him EPO and Hectorol on the run. 2. Hypertension. He will continue on his lisinopril, metoprolol. 3. End-stage renal disease. He will be on Nephrocaps, folate and PhosLo. He will be getting EPO and Hectorol on the run. 4. Hyperlipidemia. He will get Zocor. DANIS ANDERS MD MT: [id number] Name: JULIO CESAR SANDHU Account: [id number] : 1965 Admitted: [id number] Document: [id number] Wojciech Puentes MD - 08/03/2012 12:38 PM CDT IDENTIFICATION: Julio Cesar Sandhu is a 47-year-old male with known end stage renal disease and recent significant access issues necessitating multiple declot procedures of a right groin access. REASON FOR ADMISSION: Need for dialysis, likely need for anticoagulation in the aftermath of his third declot procedure. There is a small chance that he may be a candidate for a catheter placement in which case he could be dialyzed as an outpatient. Pending the results of his fistulogram, these details will become more clear. HISTORY: 47-year-old gentleman who dialyzes Tues., Thurs., Sat. at [facility]. He had a regular dialysis without complication apparently last . He was clotted on presentation Sat. Declot performed on Tuesday. Reclotted immediately. He represented for further work on ., 08/01. A stent was placed. He was dialyzed post procedure. He did present to dialysis this morning for his regular scheduled run and was found to be clotted. He has been transported to [facility] where I saw and evaluated him in the Care Suites and ultrasound suite. He is undergoing ultrasound of his graft as well as his bilateral IJ veins to assessfor possibility of catheter placement in the upper extremity if needed. I did discuss things with Dr. Saravia and the plan would be for a potential declot, possible heparin infusion. In the event that the access is not deemed salvageable, a decision regarding catheter placement may need to be made as well. We will be informed of the status as he completes his fistulogram. He is awake and alert and answers questions. Denies symptoms referable to accelerated hypertension. No volume related symptoms and appears comfortable. PAST MEDICAL HISTORY: Reviewed and remains unchanged from his history and physical dictated on 08/01. ALLERGIES: Aspirin. MEDICATIONS: Unchanged. We did add Plavix 75 mg p.o. q. day subsequent to stent placement. This willneed to be reassessed depending on how his access does post intervention. SOCIAL HISTORY, FAMILY HISTORY AND REVIEW OF SYSTEMS: Updated and remained unchanged. PHYSICAL EXAMINATION: VITALS: Afebrile, blood pressure labile, most recently in the range of 140/70. GENERAL: Appropriate and in no acute distress. HEENT: Unremarkable, pharynx without lesion. NECK: Without adenopathy or elevated JVD. CHEST: Clear anteriorly. CARDIOVASCULAR: Regular. EXTREMITIES: Clotted fistula right groin, no edema. LABORATORY DATA: Lab data from 2 days ago was reviewed. IMPRESSION: 1. End stage renal disease. 2. Persistent clotted and complicated access. 3. Hypertension moderate control. PLAN: 1. The patient will undergo ultrasound of his graft as well as his upper extremity large vessels in preparation for attempted declot and possible catheter placement. 2. If they are successful in opening the access, I believe he will be admitted for dialysis and possibly heparinization with transition to anticoagulation. 3. If the fistula is deemed non-salvageable and catheter is placed, he is able to dialyze at [place] tomorrow and possibly he could discharge post intervention with follow up dialysis in the morning. 4. We will resume his home medications if he remains in house overnight. Wojciech JACK MD MT: [id number] Name: JULIO CESAR SANDHU Account: [id number] : 1965 Admitted: [id number] Document: [id number] RESSURE THERAPIST documented in this encounter Procedure Notes Tom Olmstead MD - 08/03/2012 3:18 PM CDT Dual access in fistula. Mechanical thrombectomy and 6 mm PAINT MIXER HAND throughout bypass. OUtflow with recurrent stenosis despite repeat PAINT MIXER HAND. Patient with limited venous access. When fails again, may need surgical revision, repeated thrombolysis with stenting of entire outflow segment, or abandon fistula. 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 Left CFV is patent based upon today's US. Ready for immediate dialysis. documented in this encounter Consult Notes Rober Saravia MD - 08/04/2012 10:37 AM CDT VASCULAR SURGERY CONSULTATION REFERRING PHYSICIAN: None given. HISTORY OF PRESENT ILLNESS: Julio Cesar Sandhu is a 47-year-old patient who is on chronic maintenance hemodialysis at the [place] [facility]. He had attempts at upper arm accesses performed. The right access was patent but he had developed significant central venous stenosis-occlusion which precluded the use of either of his upper extremities or placement of tunnel catheters in his neck. We therefore placed [facility] proximal thigh profundus femoral artery to greater saphenous vein-common femoral vein loop cadaveric superficial femoral artery access graft on 05/03/2012. The patient has been using the graft successfully at his dialysis unit. We did notice on follow up ultrasound on 06/28/2011 that the graft was widely patent except for a focal area near the venous outflow with the diameter within the cadaveric artery decreased down to 2.6 mm. Since the graft was functioning well, we felt that we could follow this stenotic area. Unfortunately, the graft occluded this past week. The patient has undergone 3 separate Interventional Radiology procedures with lytic therapy. Angioplasty and eventually a Viabahn stent was placed at the stenotic outflow area. The patient would run post-procedure at the hospital but the loop graft wasnoted be occluded again on his dialysis attempt at his unit in [place] on 08/02/2012. The patient was readmitted again yesterday. Dr. Olmstead was able to reopen the graft successfully. There was no obvious inflow or outflow problem appreciated. He has undergone a successful dialysis run under the care of Dr. Holman. Repeat ultrasound the upper extremity reveals essentially no veins for a tunneled catheter which severely limits our options in this patient. It is therefore crucial that we keep this graft patent. He had been placed on Plavix when the stent was placed several days ago and due to his underlying reocclu yoseph, he has been on heparin since last evening and will be transitioned to Coumadin under the care of Dr. Holman. We will keep his aspirin and Plavix on for approximately a week during the transitionperiod and still continue with aspirin along with his Coumadin. If this graft should occlude again, a new graft would likely be placed in the right thigh but we would need a temporary access, likely via the left femoral system during the 2 week maturation/incorporation phase. I would like to avoid if at all possible any access in the left groin, saving this for potential eventual use for a new graft if the right side should fail. Because of this, aggressive anticoagulation and very careful followup of the right graft is necessary. ROBER SARAVIA MD MT: [id number] Name: JULIO CESAR SANDHU MRN: [id number] Account: [id number] : 1965 Consult Date: 08/04/2012 Document: [id number] cc: [place] [facility] documented in this encounter Miscellaneous Notes Utilization Review - Mazin Balbuena MD - 08/06/2012 10:11 PM CDT Admission Status; Secondary Review Determination Primary Insurance: Date Admitted: 08/03/2012 Date(s) Reviewed: 08/05/2012 Attending Physician: Danis Anders MD Physician Advisor: Mazin Balbuena MD Under the authority of the Utilization Management [...] inpatient care and reasonable inpatient medical practice. () Observation Status Appropriate - This patient does [...] medical management for Inpatient or Observation Status. () Outpatient Procedure Appropriate - This patient's medical care is consistent with medical management for outpatient procedure. () Observation Concurrent Stay Review (X) Inpatient Concurrent Stay Review RATIONALE FOR DETERMINATION Julio Cesar Sandhu is a 47-year-old who was initially admitted to observation status due to hemodialysis access problems. He has a history of failure of several hemodialysis accesses and was admitted for recurrence of access clotting. He had a declotting procedure performed and he was continued on IV heparin. The plan was to perform hemodialysis, as it was felt that the patient was getting inadequate dialysis due to problems with recurrent clotting. He has had several episodes of clotting in the past andfailure of other access sites. Vascular surgery consult was requested to try to help with this difficult problem. Change to inpatient status is appropriate due to need for further IV heparin, further inpatient dialysis, and vascular surgery consultation. The information on this document is developed [...] Manual, Chapter 1 and Chapter 6, section 70.4 Plan of Care - Tunde Salinas RN - 08/04/2012 6:42 PM CDT Problem: IP GENERAL POC-ADULT,OB,BEHAVIORAL FVCPM Goal: Individualization/Patient-Specific Goal (Adult,OB,Behavioral The patient and/or their customer engagement representative will achieve their patient-specific goals related to the plan of care. The patient-specific goals include: 1. Pt admitted for a clotted dialysis access 2. Fall risk Outcome: Improving Pt doing ok, denies any pain. R groin dressing d/c/i. Pt denies any n/v. No c/o dizziness or lightheadedness. Will continue to monitor. Plan of Care - Negrita Alvarez RN - 08/04/2012 2:41 PM CDT Problem: Hemodialysis (Adult) Goal: Prevent/Manage Potential Problems Signs and symptoms of listed problems will be absent or manageable. Arrived from dialysis Around 12:00. Vital signs stable, Alert, flat affect, does not talk much. Lungsounds diminished, but clear, graft on right femoral, positive for bruit and thrill, dressing dry and intact. On heparin at 500 units per hours, to maintain patency of graft. , Bowel sounds present, has a good appetite, Plan to have dialysis tomorrow, on coumadin, possible discharge tomorrow after dialysis. Plan of Care - Pauly Swain RN - 08/03/2012 10:25 PM CDT Problem: IP GENERAL POC-ADULT,OB,BEHAVIORAL FVCPM Goal: Individualization/Patient-Specific Goal (Adult,OB,Behavioral The patient and/or their customer engagement representative will achieve their patient-specific goals related to the plan of care. The patient-specific goals include: 1. Pt admitted for a clotted dialysis access 2. Fall risk Outcome: Improving Pt admitted after dialysis run this evening. Pulse palpated on right groin/thigh graft. documented in this encounter Plan of Treatment Scheduled Orders Name Type Priority Associated Diagnoses Order S chedule X-ray Fistulogram Imaging Routine One time i maging for 1 Occurrences sta rting 08/03/2012 unti l 08/03/2012 documented as of this encounter Procedures Procedure Name Priority Date/Time Associated Comments Diagnosis GLUCOSE BY METER Routine 08/05/2012 12:25 Results for this PM CDT procedure are i n the results section. INR Routine 08/05/2012 8:20 AM Results f or this CDT procedure are i n the results section. PHOSPHORUS Routine 08/05/2012 8:20 AM Results f or this CDT procedure are i n the results section. HEPARIN 10A LEVEL Routine 08/05/2012 8:20 AM Resu lts for this CDT procedure are i n the results section. BASIC METABOLIC PANEL Routine 08/05/2012 8:20 AM Results for this CDT procedure are i n the results section. CBC WITH PLATELETS Routine 08/05/2012 8:20 AM Res ults for this CDT procedure are i n the results section. GLUCOSE BY METER Routine 08/05/2012 7:37 AM Resul ts for this CDT procedure are i n the results section. GLUCOSE BY METER Routine 08/05/2012 6:11 AM Resul ts for this CDT procedure are i n the results section. GLUCOSE BY METER Routine 08/04/2012 9:50 PM Resul ts for this CDT procedure are i n the results section. GLUCOSE BY METER Routine 08/04/2012 4:55 PM Resul ts for this CDT procedure are i n the results section. GLUCOSE BY METER Routine 08/04/2012 1:05 PM Resul ts for this CDT procedure are i n the results section. HEPATITIS B SURFACE Timed 08/04/2012 9:30 AM Re sults for this ANTIBODY CDT procedure are i n the results section. HEPATITIS B SURFACE Timed 08/04/2012 9:30 AM Re sults for this ANTIGEN CDT procedure are i n the results section. POTASSIUM Timed 08/04/2012 8:00 AM Results f or this CDT procedure are i n the results section. HEMOGLOBIN Timed 08/04/2012 8:00 AM Results f or this CDT procedure are i n the results section. GLUCOSE BY METER Routine 08/04/2012 7:48 AM Resul ts for this CDT procedure are i n the results section. PLATELET COUNT Routine 08/04/2012 6:58 AM Results for this CDT procedure are i n the results section. HEPARIN 10A LEVEL Routine 08/04/2012 6:58 AM Resu lts for this CDT procedure are i n the results section. HEMODIALYSIS SINGLE Routine 08/03/2012 4:37 PM TREATMENT SETUP CDT (SH/RH ONLY) IR DIALYSIS Routine 08/03/2012 3:31 PM CRF (chronic renal Res ults for this FISTULOGRAM RIGHT CDT failure) procedure are in the results section. US EXTREMITY ARTERIAL Routine 08/03/2012 1:55 PM Results for this VENOUS DIALYSIS CDT procedure ar e in ACCESS GRAFT the results section. US UPPER EXTREMITY Routine 08/03/2012 1:54 PM Res ults for this VENOUS DUPLEX CDT procedure are in BILATERAL the results section. BASIC METABOLIC PANEL STAT 08/03/2012 1:05 PM Results for this CDT procedure are i n the results section. documented in this encounter Results (ABNORMAL) Glucose by meter (08/05/2012 12:25 PM CDT) athologist Signature Glucose 191 (H) 60 - 99 POINT OF CARE mg/dL TEST, GLUCOSE Specimen Anatomical Collection Method Collection Time Receive d Time (Source) Location / / Volume Laterality 08/05/2012 12:25 08/05/2012 PM CDT 12:30 PM CDT Tom Olmstead MD LAB - [place] [place] POCT Performing Organization Address City/State/ZIP Code Phon e Number FV POINT OF CARE TEST, GLUCOSE POINT OF CARE TEST, GLUCOSE Heparin 10a Level (08/05/2012 8:20 AM CDT) [facility] gist Method Time Signature Heparin 10A <0.10 IU/mL [facility] Level Therapeutic Range: [place] ?? UFH: ?? 0.15-0.35 IU/mL for low HOSPITAL LAB ?intensity dosing ?0.30-0.70 IU/mL for high ?intensity dosing ?? LMWH: ??1.00-2.00 IU/mL if 4-6 h ?post daily dosing ?0.60-1.00 IU/mL if 4-6 h ?post twice a day dosing Specimen Anatomical Collection Method Collection Time Receive d Time (Source) Location / / Volume Laterality 08/05/2012 8:20 AM 2 8:35 CDT AM CDT G Jagdeep Holman MD LAB - BLOOD ORDERABLES Performing Organization Address City/[facility]/ZIP Code Phon e Number [facility] [address] [phone] [facility] LAB (ABNORMAL) INR (08/05/2012 8:20 AM CDT) P athologist Signature INR 1.24 (H) 0.86 - 1.14 [facility] LAB Specimen Anatomical Collection Method Collection Time Receive d Time (Source) Location / / Volume Laterality Blood specimen 08/05/2012 8:20 AM 012 8:35 (specimen) CDT AM CDT G Jagdeep Holman MD LAB - BLOOD ORDERABLES Performing Organization Address City/[facility]/ZIP Code Phon e Number [facility] [address] [place] [phone] [facility] LAB (ABNORMAL) CBC with platelets (08/05/2012 8:20 AM CDT) Analysis Performed At Patho logist Time Signature WBC 5.2 4.0 - 11.0 [place] 10e9/L [facility] LAB RBC Count 2.97 (L) 4.4 - 5.9 [place] 10e12/L [facility] LAB Hemoglobin 8.0 (L) 13.3 - [place] 17.7 g/dL [facility] LAB Hematocrit 25.4 (L) 40.0 - [place] 53.0 % [facility] LAB MCV 86 78 - 100 [facility] LAB MCH 26.9 26.5 - [place] 33.[address] [facility] LAB MCHC 31.5 31.5 - [place] 36.5 g/dL [facility] LAB RDW 15.4 (H) 10.0 - [facility] 15.0 % [facility] LAB Platelet Count 105 (L) 150 - 450 [place] 10e9/L [facility] LAB Specimen Anatomical Collection Method Collection Time Receive d Time (Source) Location / / Volume Laterality Blood specimen 08/05/2012 8:20 AM 012 8:35 (specimen) CDT AM CDT G Jagdeep Holman MD LAB - BLOOD ORDERABLES Performing Organization Address City/State/ZIP Code Phon e Number [facility] [address] [place] [address] [phone] [facility] LAB Phosphorus (08/05/2012 8:20 AM CDT) P athologist Signature Phosphorus 3.6 2.5 - 4.5 [place] mg/dL [facility] LAB Specimen Anatomical Collection Method Collection Time Receive d Time (Source) Location / / Volume Laterality Blood specimen 08/05/2012 8:20 AM 8:35 (specimen) CDT AM CDT G Jagdeep Holman MD LAB - BLOOD ORDERABLES Performing Organization Address City/State/ZIP Code Phon e Number [facility] [address] [place] [phone] [facility] LAB (ABNORMAL) Basic metabolic panel (08/05/2012 8:20 AM CDT) Analysis Performed At Patho logist Time Signature Sodium 136 133 - 144 [place] mmol/L [facility] LAB Potassium 3.9 3.4 - 5.3 [place] mmol/L [facility] LAB Chloride 95 94 - 109 [place] mmol/L [facility] LAB Carbon Dioxide 29 20 - 32 [place] mmol/L [facility] LAB Anion Gap 13 6 - 17 [place] mmol/L [facility] LAB Glucose 132 (H) 60 - 99 [place] mg/dL [facility] LAB Urea Nitrogen 54 (H) 5 - 24 [place] mg/dL [facility] LAB Creatinine 8.18 (H) 0.66 - [facility] 1.25 mg/dL [facility] LAB GFR Estimate 7 (L) >60 [facility] mL/min/1.[address] LAB GFR Estimate If 9 (L) >60 [place] mL/min/1.[address] LAB Calcium 8.4 (L) 8.5 - 10.4 [place] mg/dL [facility] LAB Specimen Anatomical Collection Method Collection Time Receive d Time (Source) Location / / Volume Laterality Blood specimen 08/05/2012 8:20 AM 012 8:35 (specimen) CDT AM CDT Wojciech Holman MD LAB - BLOOD ORDERABLES Performing Organization Address City/State/ZIP Code Phon e Number [facility] [address] [place] [address] [facility] LAB (ABNORMAL) Glucose by meter (08/05/2012 7:37 AM CDT) P athologist Signature Glucose 104 (H) 60 - 99 POINT OF CARE mg/dL TEST, GLUCOSE Specimen Anatomical Collection Method Collection Time Receive d Time (Source) Location / / Volume Laterality 08/05/2012 7:37 AM 2 7:41 CDT AM CDT Tom Olmstead MD LAB - [place] POCT Performing Organization Address City/State/ZIP Code Phon e Number [facility] POINT OF CARE TEST, GLUCOSE POINT OF CARE TEST, GLUCOSE (ABNORMAL) Glucose by meter (08/05/2012 6:11 AM CDT) P athologist Signature Glucose 126 (H) 60 - 99 POINT OF CARE mg/dL TEST, GLUCOSE Specimen Anatomical Collection Method Collection Time Receive d Time (Source) Location / / Volume Laterality 08/05/2012 6:11 AM 2 6:15 CDT AM CDT Tom Olmstead MD LAB - [place] POCT Performing Organization Address City/State/ZIP Code Phon e Number [facility] POINT OF CARE TEST, GLUCOSE POINT OF CARE TEST, GLUCOSE (ABNORMAL) Glucose by meter (08/04/2012 9:50 PM CDT) P athologist Signature Glucose 136 (H) 60 - 99 POINT OF CARE mg/dL TEST, GLUCOSE Specimen Anatomical Collection Method Collection Time Receive d Time (Source) Location / / Volume Laterality 08/04/2012 9:50 PM 2 9:55 CDT PM CDT Tom Olmstead MD LAB - [place] POCT Performing Organization Address City/State/ZIP Code Phon e Number [facility] POINT OF CARE TEST, GLUCOSE POINT OF CARE TEST, GLUCOSE (ABNORMAL) Glucose by meter (08/04/2012 4:55 PM CDT) P athologist Signature Glucose 127 (H) 60 - 99 POINT OF CARE mg/dL TEST, GLUCOSE Specimen Anatomical Collection Method Collection Time Receive d Time (Source) Location / / Volume Laterality 08/04/2012 4:55 PM 2 5:00 CDT PM CDT Tom Olmstead MD LAB - [place] POCT Performing Organization Address City/[facility]/ZIP Code Phon e Number [facility] POINT OF CARE TEST, GLUCOSE POINT OF CARE TEST, GLUCOSE (ABNORMAL) Glucose by meter (08/04/2012 1:05 PM CDT) P athologist Signature Glucose 188 (H) 60 - 99 POINT OF CARE mg/dL TEST, GLUCOSE Specimen Anatomical Collection Method Collection Time Receive d Time (Source) Location / / Volume Laterality 08/04/2012 1:05 PM 2 1:20 CDT PM CDT Tom Olmstead MD LAB - [place] POCT Performing Organization Address City/[facility]/ZIP Code Phon e Number [facility] POINT OF CARE TEST, GLUCOSE POINT OF CARE TEST, GLUCOSE Hepatitis B surface antigen (08/04/2012 9:30 AM CDT) Patholo gist Method Time Signature Hep B Surface Negative NEG [facility] MICROBIOLOGY Specimen Anatomical Collection Method Collection Time Receive d Time (Source) Location / / Volume Laterality Blood specimen 08/04/2012 9:30 AM 012 9:54 (specimen) CDT AM CDT Wojciech Holman MD LAB - BLOOD ORDERABLES Performing Organization Address City/State/ZIP Code Phon e Number [address] [address] [facility] MICROBIOLOGY Hepatitis B surface antibody (08/04/2012 9:30 AM CDT) P athologist Signature Hep B Surface 5.0 [facility] Comment: Indeterminate, Unable to determine if an ti-HBs (hepatitis B surface antibody) is present at levels consistent with immun ity when the value is between 5.0 and 11.9 mlU/mL. Specimen Anatomical Collection Method Collection Time Receive d Time (Source) Location / / Volume Laterality Blood specimen 08/04/2012 9:30 AM 012 9:54 (specimen) CDT AM CDT Wojciech Holman MD LAB - BLOOD ORDERABLES Performing Organization Address City/State/ZIP Code Phon e Number [facility] [address] [place] [address] [facility] Potassium (08/04/2012 8:00 AM CDT) athologist Signature Potassium 4.0 3.4 - 5.3 [place] mmol/L [facility] LAB Specimen Anatomical Collection Method Collection Time Receive d Time (Source) Location / / Volume Laterality Blood specimen 08/04/2012 8:00 AM 012 9:15 (specimen) CDT AM CDT Wojciech Holman MD LAB - BLOOD ORDERABLES Performing Organization Address City/State/ZIP Code Phon e Number [facility] [address] [place] [address] 0[phone] [facility] LAB (ABNORMAL) Hemoglobin (08/04/2012 8:00 AM CDT) athologist Signature Hemoglobin 8.0 (L) 13.3 - 17.7 [place] g/dL [facility] LAB Specimen Anatomical Collection Method Collection Time Receive d Time (Source) Location / / Volume Laterality Blood specimen 08/04/2012 8:00 AM 012 9:15 (specimen) CDT AM CDT Wojciech Holman MD LAB - BLOOD ORDERABLES Performing Organization Address City/[facility]/ZIP Code Phon e Number [facility] [address] [place] [address] [facility] LAB (ABNORMAL) Glucose by meter (08/04/2012 7:48 AM CDT) P athologist Signature Glucose 175 (H) 60 - 99 POINT OF CARE mg/dL TEST, GLUCOSE Specimen Anatomical Collection Method Collection Time Receive d Time (Source) Location / / Volume Laterality 08/04/2012 7:48 AM 2 1:11 CDT PM CDT Tom Olmstead MD LAB - [place] POCT Performing Organization Address City/State/ZIP Code Phon e Number [facility] POINT OF CARE TEST, GLUCOSE POINT OF CARE TEST, GLUCOSE (ABNORMAL) Platelet count (08/04/2012 6:58 AM CDT) athologist Signature Platelet Count 91 (L) 150 - 450 [place] 10e9/L [facility] LAB Specimen Anatomical Collection Method Collection Time Receive d Time (Source) Location / / Volume Laterality Blood specimen 08/04/2012 6:58 AM 012 7:11 (specimen) CDT AM CDT Danis Anders MD LAB - BLOOD ORDERABLES Performing Organization Address City/[facility] Phon e Number [facility] [address] [place] [address] [phone] [facility] LAB Heparin 10a Level (08/04/2012 6:58 AM CDT) [facility] Method Time Signature Heparin 10A <0.10 IU/mL [facility] ?? UFH: ?? 0.15-0.35 IU/mL for low HOSPITAL LAB ?intensity dosing ?0.30-0.70 IU/mL for high ?intensity dosing ?? LMWH: ??1.00-2.00 IU/mL if 4-6 h ?post daily dosing ?0.60-1.00 IU/mL if 4-6 h ?post twice a day dosing Results confirmed by repeat test NOTIFIED TREVON MCKEON ON STA 88. AC Specimen Anatomical Collection Method Collection Time Receive d Time (Source) Location / / Volume Laterality Blood specimen 08/04/2012 6:58 AM 012 7:11 (specimen) CDT AM CDT Danis Anders MD LAB - BLOOD ORDERABLES Performing Organization Address City/State/ZIP Code Shilpa alas Number Edna [facility] [address] [address] [phone] [facility] LAB INT dialysis shuntogram right (08/03/2012 3:31 PM CDT) Anatomical Region Laterality Modality Upper Extremity Radio Fluoroscopy Specimen (Source) Anatomical Collection Method Collection Time Re ceived Time Location / / Volume Laterality 08/03/2012 3:31 PM CDT Impressions 08/04/2012 12:10 PM CDT INTERVENTIONAL RADIOLOGY DIALYSIS SHUNTO GRAM 08/03/2012 3:32 PM HISTORY: 47-year-old male with cadaveric arterial loop graft in the right proximal thigh for dialysis access . This graft has thrombosed for the third time. TECHNIQUE: The patient was brought to [facility] interventional radiology department and informed consent was reit erated. Patient was placed supine on the fluoroscopy table. Skin ov erlying the anterior aspect of the thigh was prepped and draped in s tandard sterile fashion. Given lack of pulse throughout the fistu la, ultrasound was used to obtain both antegrade and retrograde acc ess. Ultrasound images stored for documentation. 1% lidocaine used for local anesthesia. With continuous ultrasound guidance, micropun cture kits were used to access the fistula. 6 Thai sheaths wer e subsequently placed. 4 mg of TPA administered throughout the outfl ow segment. Possis device was used for mechanical thrombectomy. An end hole wedge balloon catheter was then advanced through the arterial l imb and into the inflow artery and pulled back to the access she ath. The fistulograms were performed throughout the steps and 6 mm balloon angioplasty was performed throughout the inflow and outf low segments. Small residual filling defect noted in the outflow segm ent that appeared resolved by completion of the exam. There appears to be some vasospastic component in the outflow segment between the two existing stents. This may be cause for ongoing failure. C ompletion images were obtained demonstrating patency of the fi stula at completion without residual filling defect or hemodynamical ly significant stenosis. Both sheaths were secured in position and pat ient sent to dialysis. Sedation: 1.5 mg IV Versed, 75 mcg IV fe ntanyl. 4 mg of TPA was administered during the exam. Sedation time: 85 minutes Please note the above medications were a dministered by the interventional radiology staff under my direct supervision. Patient's vital signs were monitored and remained stable throughout the procedure. Fluoroscopic time: 6.9 minutes Contrast: 90 mL of Isovue administered t hroughout the fistula. Local anesthetic: 7 mL of 1% lidocaine. FINDINGS: Please see description above. Please note that angioplasty was performed both in the inflow and out flow segments. IMPRESSION: Successful revascularization of right proximal thigh fistula with cadaveric arterial graft. O utflow segment seems vasospastic. Should the graft fail once again, would consider surgical revascularization. If thromboly sis is desired, patient may require stent placement throughout the o utflow segment. Wojciech Holman MD IMG IR ORDERABLES US hemodialysis access (08/03/2012 1:55 PM CDT) Anatomical Region Laterality Modality Vascular, Abdomen/Pelvis Other Specimen (Source) Anatomical Collection Method Collection Time Re ceived Time Location / / Volume Laterality 08/03/2012 1:55 PM CDT Impressions 08/03/2012 2:08 PM CDT US ART-VENOUS DIALYSIS GRAFT ?? 2 1:55 PM HISTORY: Malfunctioning dialysis graft Comparison: Ultrasound dated 06/28/2000 1 012 and angiogram dated 08/01/2012 Findings: A right thigh loop cadaveric a rtery loop graft from the right common femoral artery to the commo n femoral vein is occluded. Tom Olmstead MD IM US ORDERABLES US Venous upper extrem bilateral (08/03/2012 1:54 PM CDT) Anatomical Region Laterality Modality Arm Other Specimen (Source) Anatomical Collection Method Collection Time Re ceived Time Location / / Volume Laterality 08/03/2012 1:54 PM CDT Impressions 08/03/2012 2:06 PM CDT US VENOUS UPPER EXT HEMAL ??08/03/2012 1:5 4 PM HISTORY: ??Evaluate for central venous a ccess for possible dialysis catheter. Comparison: None Findings: The right internal jugular vei n is not visualized. The left internal jugular vein is thrombosed. 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 Tom Olmstead MD IMG US ORDERABLES (ABNORMAL) Basic metabolic panel (08/03/2012 1:05 PM CDT) [facility] gist Method Time Signature Sodium 135 133 - 144 [place] mmol/L [facility] Potassium 5.6 (H) 3.4 - 5.3 [place] mmol/L [facility] Chloride 98 94 - 109 [place] mmol/L [facility] Carbon Dioxide 19 (L) 20 - 32 [place] mmol/L [facility] Anion Gap 19 (H) 6 - 17 [place] mmol/L [facility] Glucose 73 60 - 99 [place] mg/dL [facility] Urea Nitrogen 124 (H) 5 - 24 [place] mg/dL [facility] Creatinine 17.64 (H) 0.66 - [place] 1.25 mg/dL [facility] GFR Estimate 3 (L) >60 [place] mL/min/1.[address] LAB GFR Estimate If 4 (L) >60 [place] mL/min/1.[address] LAB Calcium 8.9 8.5 - 10.4 [place] mg/dL [facility] Specimen Anatomical Collection Method Collection Time Receive d Time (Source) Location / / Volume Laterality Blood specimen 08/03/2012 1:05 PM 012 1:28 (specimen) CDT PM CDT G Jagdeep Holman MD LAB - BLOOD ORDERABLES Performing Organization Address City/State/ZIP Code Phon e Number [facility] [address] [id number] [facility] documented in this encounter Visit Diagnoses Diagnosis CRF (chronic renal failure) - Primary Chronic kidney disease, unspecified ESRF (end stage renal failure) (H) End stage renal disease AVF (arteriovenous fistula) (H) Arteriovenous fistula, acquired A-V fistula (H) Arteriovenous fistula, acquired Clotted dialysis access (H) Mechanical complication of other vascula r device, implant, and graft Clotted dialysis access (H) Mechanical complication of other vascula r device, implant, and graft Fistula Unspecified local infection of skin and subcutaneous tissue documented in this encounter Administered Medications Inactive Administered Medications - up to 3 most recent administrations Medication Order MAR Action Action Date Dose Rate Site alteplase (Activase) 2 MG injection Starting on Padmaja 08/03/12 at 1356, For 1 dose, Lisa St even: cabinet override alteplase (Activase) injection 4 mg Given by Other 08/03/2012 2:06 PM CDT 4 mg 4 mg, Other, ONCE PRN, Dialysis Fistula Declot, Starting on Padmaja 08/03/12 at 1405, For 1 dose, IR Intra-procedure, IR Intra-procedure B xsnppwl-G-jgsro acid (NEPHROCAPS) capsule 1 Given 08/05/20 1:25 PM CDT 1 mg mg 1 mg (1 capsule), Oral, DAILY, First dose on Tue08/03/12 at 2014 Given 08/03/2012 9:18 PM CDT 1 mg bisacodyl (DULCOLAX) EC tablet 5 mg Given 08/05/2012 1:25 PM CDT 5 mg 5 mg, Oral, 2 TIMES DAILY, First dose on Padmaja 08/03/12 at 2100, DO NOT CRUSH. Given 08/04/2012 9:51 PM CDT 5 mg Given 08/04/2012 1:48 PM CDT 5 mg calcium acetate (PHOSLO) capsule 2,001 m g Given 08/05/2012 1:24 PM CDT 2,001 mg 2,001 mg, Oral, 3 TIMES DAILY WITH MEALS, First dose on Tue08/04/12 at 0900, Best if given with meals. Take with meals. Given 08/05/2012 9:49 AM CDT 2,001 mg Given 08/04/2012 5:39 PM CDT 2,001 mg clopidogrel (PLAVIX) tablet 75 mg Given 08/05/2012 1:25 PM CDT 75 mg 75 mg, Oral, DAILY, First dose on Tue08/03/12 at 2014 Given 08/04/2012 1:50 PM CDT 75 mg Given 08/03/2012 9:18 PM CDT 75 mg doxercalciferol (HECTOROL) injection 0.5 mcg Given 08/05/2012 9:51 AM CDT 0.5 mcg 0.5 mcg, Intravenous, SEE ADMIN INSTRUCTIONS, Starting on Padmaja 08/03/12 at 1637, Given during each dialysis (per request), Dialysis Given 08/04/2012 9:01 AM CDT 0.5 mcg Given 08/03/2012 5:07 PM CDT 0.5 mcg enoxaparin (LOVENOX) injection 30 mg Given 08/05/2012 1:26 PM CDT 30 mg 30 mg, Subcutaneous, EVERY 24 HOURS, First dose on 08/05/12 at 1000, For 1 dose, Please give single dose of lovenox prior to discharge Please also give him a 5 mg warfarin dose prior to discharge epoetin mauricio (EPOGEN,PROCRIT) 7,000 Given 08/05/2012 9:53 AM CDT 7,000 Units Units injection 7,000 Units, Intravenous, SEE ADMIN INSTRUCTIONS, Starting on Padmaja 08/03/12 at 1637, Given during each dialysis (per request) 7000 units = 3000 unit vial + 4000 unit vial, Dialysis, Hemoglobin reviewed? has reviewed/ordered hemoglobin within the required timeline Given 08/04/2012 9:55 AM CDT 7,000 Units Given 08/03/2012 5:12 PM CDT 7,000 Units fentaNYL (SUBLIMAZE) 0.05 MG/ML injectio n Starting on Padmaja 08/03/12 at 1056, For 1 dose, St Lisa even: cabinet override fentaNYL (SUBLIMAZE) injection 25-50 mcg Given 08/03/2012 2:37 PM CDT 25 mcg 25-50 mcg, Intravenous, EVERY 5 MIN PRN, severe pain (7-10), If inadequate response may repeat 25 mcg IV slowly Q 5 min PRN severe pain, Administer over 2 Minutes, Starting on Padmaja 08/03/12 at 1343, Doses can be exceeded under direct oversight of patient by physician., IR Intra-procedure Given 08/03/2012 1:50 PM CDT 50 mcg folic acid (FOLVITE) tablet 1 mg Given 08/05/2012 1:25 PM CDT 1 mg 1 mg, Oral, DAILY, First dose on Padmaja 08/03/12 at 2015 Given 08/04/2012 1:49 PM CDT 1 mg Given 08/03/2012 9:18 PM CDT 1 mg heparin (porcine) injection 1,000 Units Given 08/03/2012 3:50 PM CDT 1,000 Units 1,000 Units, Hemodialysis Machine, ONCE IN DIALYSIS/CRRT, On Padmaja 08/03/12 at 1645, For 1 dose, LOADING DOSE, Dialysis heparin (Porcine) Lock Flush 100 UNIT/ML SOLN Starting on Tue08/03/12 at 1511, For 1 dose, St Lisa even: cabinet override heparin 10,000 units/10 mL New Bag 08/03/2012 5:33 PM CDT 1,00 0 Units/hr 1 mL/hr drip (DIALYSIS USE) 1,000 Units/hr (rounded to 1 mL/hr), Hemodialysis Machine, CONTINUOUS, Starting on Tue08/03/12 at 1645, DURING DIALYSIS TREATMENT, Dialysis heparin 100 UNIT/ML injection 500 Given by Other 08/03/2012 3:1 5 PM CDT 500 Units Units 500 Units, Intracatheter, ONCE, On Tue08/03/12 at 1515, For 1 dose, IR Intra-procedure Heparin lock dialysis sheaths; per Dr Ishan HARPER, IR Intra-procedure heparin drip 25,000 Rate/Dose Verify 08/05/2012 7:45 AM 500 Units/hr 5 mL/hr units in D5W 250 mL CDT 500 Units/hr (rounded to 5 mL/hr), Intravenous, CONTINUOUS, Starting on Tue08/03/12 at 2045, Run Heparin drip at 500 units/hr - fixed low dose rate , Initial Set-up verified by: nurse Rate/Dose Verify 08/04/2012 4:34 PM CDT 500 Units/hr 5 mL/hr Rate/Dose Verify 08/04/2012 2:00 PM CDT 500 Units/hr 5 mL/hr insulin aspart (NovoLOG) injection Given 08/05/2012 1:24 PM CDT 1 Units 1-3 Units, Subcutaneous, 3 TIMES DAILY BEFORE MEALS, First dose on Tue08/04/12 at 1330, Correction Scale - LOW INSULIN RESISTANCE DOSING [...] 5 min before meal or immediately after. Dispose as HW Given 08/04/2012 1:56 PM CDT 1 Units iopamidol (ISOVUE-300) IV solution 61% 1 00 mL Given 08/03/2012 3:21 PM CDT 90 mLs 100 mL, Intravenous, ONCE, On Padmaja 08/03/12 at 1400, For 1 dose, IR Intra-procedure lactulose (CHRONULAC) solution 20 g Given 08/05/2012 1:26 PM CDT 20 g 20 g, Oral, DAILY, First dose on Padmaja 08/03/12 at 2015 Given 08/04/2012 1:48 PM CDT 20 g Given 08/03/2012 9:56 PM CDT 20 g lidocaine (PF) (XYLOCAINE) 1 % Given by Other 08/03/2012 2:07 PM CDT 5 mLs injection 30 mL 30 mL, Subcutaneous, ONCE PRN, for local anesthetic.?When verbally ordered by prescriber during the procedure., Starting on Padmaja 08/03/12 at 1343, For 1 dose, Dose to be divided into smaller volumes appropriate for the procedure., IR Intra-procedure Given by Other 08/03/2012 1:55 PM CDT 2 mLs lisinopril (PRINIVIL,ZESTRIL) tablet 40 mg Given 08/03/2012 9:18 PM CDT 40 mg 40 mg, Oral, DAILY, First dose on Padmaja 08/03/12 at 2015, Hold on days of dialysis metoprolol (LOPRESSOR) tablet 50 mg Given 08/04/2012 9:50 PM CDT 50 mg 50 mg, Oral, 2 TIMES DAILY, First dose on Padmaja 08/03/12 at 2100 Given 08/04/2012 1:51 PM CDT 50 mg Given 08/03/2012 9:18 PM CDT 50 mg midazolam (VERSED) 1 MG/ML injection Starting on Padmaja 08/03/12 at 1056, For 1 dose, [facility] even: cabinet override midazolam (VERSED) injection 0.5-1 mg Given 08/03/2012 2:37 PM CDT 0.5 mg 0.5-1 mg, Intravenous, Administer over 1 Minutes, EVERY 4 MIN PRN, sedation, If inadequate response may repeat 0.5 mg IV slowly Q 4 minutes PRN sedation until desired response., Starting on Padmaja 08/03/12 at 1343, Doses can be exceeded under direct oversight of patient by physician., IR Intra-procedure Given 08/03/2012 1:51 PM CDT 1 mg simvastatin (ZOCOR) tablet 40 mg Given 08/04/2012 9:52 PM CDT 40 mg 40 mg, Oral, AT BEDTIME, First dose on Apdmaja 08/03/12 at 2200 Given 08/03/2012 9:18 PM CDT 40 mg sodium chloride (PF) 0.9% PF flush 3 mL Given 08/04/2012 1:56 PM CDT 3 mLs 3 mL, Intravenous, EVERY 8 HOURS, First dose on Padmaja 08/03/12 at 2015, to lock peripheral IV dormant line. Also Ordered Q1H PRN, Post-procedure Given 08/03/2012 9:17 PM CDT 3 mLs sodium chloride 0.9 % BOLUS 250 mL New Bag 08/03/2012 5:34 PM CDT 250 mLs mL/hr Hemodialysis Machine, 250 mL, ONCE, On Padmaja 08/03/12 at 1645, For 1 dose, For Dialyzer Prime. (In Dialyzer), Dialysis warfarin (COUMADIN) tablet 10 mg Given 08/04/2012 5:39 PM CDT 10 mg 10 mg, Oral, ONCE AT 6PM, On 08/04/12 at 1800, For 1 dose, Dispose as HW-P warfarin (COUMADIN) tablet 5 mg Given 08/05/2012 1:48 PM CDT 5 mg 5 mg, Oral, ONCE AT 6PM, On 08/05/12 at 1800, For 1 dose, Dispose as HW-P documented in this encounter Active and Recently Administered Medications Times are shown in CDT. Scheduled Medication Order 08/03/2012 08/04/2012 08/05/2012 B nbjkdjc-V-vklls acid (NEPHROCAPS) capsule 1 mg (CANC ELED) 2117 (Given - Provider: Pauly Swain, LINDA) 1244 (Not Given - Provider: Negrita flaherty RN - Reason: Transfer to a procedural area) 1325 (Given - Provider: Heidi Hilliard RN - Comment: at dialysis) 1 capsule = 1 mg, Oral, DAILY, First dose on Padmaja 08/03/12 at 201 5 bisacodyl (DULCOLAX) EC tablet 5 mg (CANCELED) 2117 (G iven - Provider: Pauly Swain RN) 1348 (Given - Provider: Negrita Alvarez, LINDA)2151 (Given - Provider: Mary Fan, LINDA) 1325 (Given - Provider: Heidi Hilliard RN - Comment: at dialysis) 5 mg, Oral, 2 TIMES DAILY, First dose on Padmaja 08/03/12 at 2100, D O NOT CRUSH. calcium acetate (PHOSLO) capsule 2,001 mg (CANCELED) 1037 (Given - Provider: Angie Higginbotham RN)1348 (Given - Provider: Negrita Alvarez RN - Comment: late lunch)1739 (Given - Provider: Tunde Salinas RN) 0949 (Given - Provider: Angie Higginbotham RN)1324 (Given - Provider: Heidi Hilliard RN) 2,001 mg, Oral, 3 TIMES DAILY WITH MEALS , First dose on Tue08/04/12 at 0900, Best if given with meals. Take with meals. clopidogrel (PLAVIX) tablet 75 mg (CANCELED) 2117 (Giv en - Provider: Pauly Swain RN) 1350 (Given - Provider: Negrita Alvarez RN - Comment: dialysis) 1325 (Given - Provider: Heidi Hilliard RN - Comment: at dialysis) 75 mg, Oral, DAILY, First dose on Padmaja 08/03/12 at 2014 doxercalciferol (HECTOROL) injection 0.5 mcg (CANCELED ) 1707 (Given - Provider: Stacy Del Rio RN - Comment: given on dialysis) 0901 (Given - Provider: Angie Higginbotham RN) 0951 (Given - Provider: Angie Mckee, RN) 0.5 mcg, Intravenous, SEE ADMIN INSTRUCT IONS, Given during each dialysis (per request), Dialysis enoxaparin (LOVENOX) injection 30 mg (COMPLETED) 1326 (Given - Provider: Heidi Hilliard RN) 30 mg, Subcutaneous, EVERY 24 HOURS, Fir st dose on 08/05/12 at 1000, For 1 dose, Please give single dose of lovenox prior to discharge Please also give him a 5 mg warfarin dose prior to discharge epoetin mauricio (EPOGEN,PROCRIT) 7,000 Units injection (C ANCELED) 1712 (Given - Provider: Stacy Del Rio RN - Comment: 3000+4000 unit vials used used) 0955 (Given - Provider: Angie Higginbotham, RN) 0953 (Given - Provider: Angie Higginbotham, RN) 7,000 Units, Intravenous, SEE ADMIN INST RUCTIONS, Given during each dialysis (per request) 7000 units = 3000 unit vial + 4000 unit vial, Dialysis folic acid (FOLVITE) tablet 1 mg (CANCELED) 2117 (Give n - Provider: Pauly Swain, RN) 1349 (Given - Provider: Negrita Alvarez, LINDA - Comment: dialysis) 1325 (Given - Provider: Heidi Hilliard RN - Comment: at dialysis) 1 mg, Oral, DAILY, First dose on Tue08/03/12 at 2015 heparin (porcine) injection 1,000 Units (COMPLETED) 15 50 (Given - Provider: Stacy Del Rio RN - Comment: given as dialysis loading dose) 1,000 Units, Hemodialysis Machine, ONCE IN DIALYSIS, Tue08/03/12 at 1645, For 1 dose, LOADING DOSE, Dialysis heparin 100 UNIT/ML injection 500 Units (COMPLETED) 15 15 (Given by Other - Provider: Tyrel Gonzalez RN - Comment: IR Intra-procedure per Dr Olmstead; 250 units per dialysis sheath to heparin lock.) 500 Units, Intracatheter, ONCE, Padmaja 07/11 02/18 at 1515, For 1 dose, IR Intra- procedure Heparin lock dialysis sheaths; per Dr Ishan HARPER, IR Intra-procedure insulin aspart (NovoLOG) injection (CANCELED) 1356 (Given - Provider: Negrita Alvarez, LINDA - Comment: Late lunch.)1700 (Not Given - Provider: Tunde Salinas RN - Reason: Order parameters not met) 0745 (Not Given - Provider: Heidi Hilliard RN - Reason: Order parameters not met)1324 (Given - Provider: Heidi Hilliard, LINDA - Comment: Lunch ordered for 1300) 1-3 Units, Subcutaneous, 3 TIMES DAILY B EFORE MEALS, First dose on Tue08/04/12 at 1330, Correction Scale - LOW INSULIN RESISTANCE DOSING Do Not give Correction Insulin if Pre-Meal BG < 140. For Pre- Meal BG 140 - 239 give 1 unit. For Pre-M eal BG 240 - 339 give 2 units. For Pre- Meal BG > 340 give 3 units. To be given with prandial insulin, and based on pre- meal blood glucose. Notify MD if glucose > or = 350 mg/dL after administration o f correction dose. If given at mealtime, must be administered 5 min before meal or immediately after. Dispose as HW iopamidol (ISOVUE-300) IV solution 61% 100 mL (COMPLET ED) 152 (Given - Provider: Preet Enriquez, ARRT - Comment: 90) 100 mL, Intravenous, ONCE, Padmaja 08/03/12 at 1400, For 1 dose, IR Intra-procedure lactulose (CHRONULAC) solution 20 g (CANCELED) 2155 (G iven - Provider: Pauly Swain RN) 1348 (Given - Provider: Negrita Alvarez RN - Comment: dialysis) 132 (Given - Provider: Heidi Hilliard RN - Comment: at dialysis) 20 g, Oral, DAILY, First dose on Padmaja 08/03/12 at 2014 lisinopril (PRINIVIL,ZESTRIL) tablet 40 mg (CANCELED) 2117 (Given - Provider: Pauly Swain RN) 1351 (Not Given - Provider: Negrita flaherty RN - Reason: Other - Comment: dialysis) 1310 (Not Given - Provider: Heidi grace, LINDA - Reason: Other - Comment: Held for dialysis) 40 mg, Oral, DAILY, First dose on Padmaja at 2014, Hold on days of dialysis metoprolol (LOPRESSOR) tablet 50 mg (CANCELED) 2117 (G iven - Provider: Pauly Swain, LINDA) 1351 (Given - Provider: Negrita Alvarez RN - Comment: dialysis)2149 (Given - Provider: Mary Fan RN) 1325 (Not Given - Provider: Heidi Hilliard RN - Reason: Other - Comment: dialysis) 50 mg, Oral, 2 TIMES DAILY, First dose on Padmaja 08/03/12 at 2100 simvastatin (ZOCOR) tablet 40 mg (CANCELED) 2117 (Give n - Provider: Pauly Swain, LINDA) 2152 (Given - Provider: Mary Fan, LINDA) 40 mg, Oral, AT BEDTIME, First dose on Padmaja 08/03/12 at 2200 sodium chloride (PF) 0.9% PF flush 3 mL (CANCELED) 211 7 (Given - Provider: Pauly Swain, LINDA) 0415 (Canceled Entry - Provider: Orders Generic Provider)1356 (Given - Provider: Negrita Alvarez RN)2243 (Not Given - Provider: Mary Fan, LINDA - Reason: IV Infusing) 0745 (Not Given - Provider: Heidi Hilliard RN - Reason: IV Infusing)1309 (Not Given - Provider: Heidi Hilliard RN - Reason: IV Infusing) 3 mL, Intravenous, EVERY 8 HOURS, First dose on Padmaja 08/03/12 at 2015, to lock peripheral IV dormant line. Also Ordered Q1H PRN, Post-procedure sodium chloride 0.9 % BOLUS 250 mL (COMPLETED) 1734 (N ew Bag - Provider: Stacy Del Rio, LINDA - Comment: dialysis prime) Hemodialysis Machine, 250 mL, ONCE, Padmaja 08/03/12 at 1645, For 1 dose, For Dialyzer Prime. (In Dialyzer), Dialysis warfarin (COUMADIN) tablet 10 mg (COMPLETED) 1739 (Given - Provider: Tunde Salinas RN) 10 mg, Oral, ONCE AT 6PM, 08/04/12 at 1800, For 1 dose, Disp ose as HW-P warfarin (COUMADIN) tablet 5 mg (COMPLETED) 1348 (Given - Provider: Heidi Hilliard, LINDA - Comment: Order to give before discharge. Explained to patient to take next dose tomorrow PM)1800 (Canceled Entry - Provider: Heidi Hilliard RN - Comment: Given before discharge) 5 mg, Oral, ONCE AT 6PM, 08/05/12 at 1800, For 1 dose, Dispo se as HW-P Continuous Medication Order 08/03/2012 08/04/2012 08/05/2012 heparin 10,000 units/10 mL drip (DIALYSIS USE) (CANCEL ED) 1733 (New Bag - Provider: Stacy Del Rio LINDA - Comment: given on dialysis) 1,000 Units/hr = 1 mL/hr, Hemodialysis M achine, at 1 mL/hr, CONTINUOUS, Starting Padmaja 08/03/12 at 1645, DURING DIALYSIS TREATMENT, Dialysis heparin drip 25,000 units in D5W 250 mL (CANCELED) 212 3 (New Bag - Provider: Pauly Swain, RN) 1400 (Rate/Dose Verify - Provider: Trevon Alvarez RN)1634 (Rate/Dose Verify - Provider: Tunde Salinas, LINDA) 0745 (Rate/Dose Verify - Provider: Heidi Hilliard, LINDA)1352 (Stopped - Provider: Heidi Hilliard RN - Comment: Patient to discharge at 1400) 500 Units/hr = 5 mL/hr, Intravenous, at 5 mL/hr, CONTINUOUS, Starting Padmaja 08/03/12 at 2045, Run Heparin drip at 500 units/hr - fixed low dose rate PRN Medication Order 08/03/2012 08/04/2012 08/05/2012 alteplase (Activase) injection 4 mg (COMPLETED) 1406 ( Given by Other - Provider: Tyrel Gonzalez RN - Comment: IR Intra-procedure dialysis fistula declot per Dr Olmstead) 4 mg, Other, ONCE PRN, Dialysis Fistula Declot, Starting Padmaja 08/03/12 at 1405, For 1 dose, IR Intra-procedure, IR Intra-procedure fentaNYL (SUBLIMAZE) injection 25-50 mcg (CANCELED) 13 50 (Given - Provider: Tyrel Gonzalez RN)1437 (Given - Provider: Tyrel Gonzalez RN) 25-50 mcg, Intravenous, for 2 Minutes, E VERY 5 MIN PRN, Starting Padmaja 08/03/12 at 1343, severe pain, If inadequate response may repeat 25 mcg IV slowly Q 5 min PRN severe pain, Doses can be exceeded unde r direct oversight of patient by physician., IR Intra-procedure lidocaine (PF) (XYLOCAINE) 1 % injection 30 mL (COMPLE NUNO) 1355 (Given by Other - Provider: Tyrel Gonzalez RN - Comment: IR Intra-procedure per Dr Olmstead)1407 (Given by Other - Provider: Tyrel Gonzalez RN - Comment: IR Intra-procedure per Dr Olmstead; additional dialysis fistula sheath placement.) 30 mL, Subcutaneous, ONCE PRN, for local anesthetic.?When verbally ordered by prescriber during the procedure., Starting Padmaja 08/03/12 at 1343, For 1 dose, Dose to be divided into smaller volumes appropriate for the procedure., IR Intra-procedure midazolam (VERSED) injection 0.5-1 mg (CANCELED) 1351 (Given - Provider: Tyrel Gonzalez, RN)1437 (Given - Provider: Tyrel Gonzalez, LINDA) 0.5-1 mg, Intravenous, for 1 Minutes, EV KAROL 4 MIN PRN, Starting Padmaja 08/03/12 at 1343, sedation, If inadequate response may repeat 0.5 mg IV slowly Q 4 minutes PRN sedation until desired response., Doses can be exceeded under direct oversight of patient by physician., IR Intra-procedure WARFARIN THERAPY REMINDER CONTINUOUS PRN, Starting 08/04/12 at 1403, Until 08/05/12 at 1628, * Note to reorder warfarin daily* PROVIDER is managing warfarin dosing Patient is on Warfarin Therapy - check for daily order documented in this encounter Care Teams Data Steward Relationship Specialty Start Date End Date Preet Huff PCP - General 06/24/11 documented as of this encounter
--- OUTSIDE RECORDS SUMMARY | 2022-09-01 20:25 | XMS_ITS | Encounter Summary ---
:1965 Author Organization [facility] Address [address] [place] [id number] Care Team Providers Name Role Phone Preet Huff Primary Care Provider Jaxon Saravia MD Unavailable [phone] Encounter Details Date Type Department Care Team Description 10/20/2011 Hospital PHYS STANDARD Wojciech Holman, ESRD (end stage renal diseas e) on dialysis (H); [address] Nazia Kelly MD Hyperkalemia [address] [id number] INTERMED [phone] [facility] [address] [id number] Social History Tobacco Use Types Packs/Day [...] dialys is (H) End stage renal disease Hyperkalemia Hyperpotassemia documented in this encounter Care 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
--- OUTSIDE RECORDS SUMMARY | 2022-09-01 20:25 | XMS_ITS | Encounter Summary ---
:1965 Author Organization [facility] Address [address] [place] [address] Care Team Providers Name Role Phone Preet Huff Primary Care Provider Encounter Details Date Type Department Care Team Description 10/20/2011 Anesthesia Event M [facility] Dima Hernandez MD [address] [place] [address] Mell Robins, STONE POLISHER CRIMPER ASSEMBLER Services [address], [address] [place] [address] Anesthesia Record Procedure Summary Procedure Name Responsible Anesthesia Start Anesthesia Stop Anesthesiologist Time Time VEIN PATCH RIGHT ARM 10/20/11 1748 10/20/11 20 15 ARTERIOVENOUS FISTULA WITH BOVINE PATCH (Right: Arm) Events Date Time Event Comment 10/20/2011 1226 Quick Note Chart reviewed. 1729 1748 An Start To OR via cart a fter pt ID, allergy, procedure, and consent checked 1803 Quick Note Time Out complet ed 2014 An Stop Name Total ceFAZolin vial 1 gm 1 g Agents No agents on file. Blood No blood administrations on file. Lines, Drains, and Airways Type Details Placement Removal RETIRED: CVC Double 07/19/11; 1150; 14.5; 07/19/11 1150 by 08/10 1412 by [place] [id number]; Tunneled; Yolanda Garcia RN Schoen ecker, Sharon Right; Internal J jugular; Dr. Fuentes; Sutured; Flouroscopy; SVC/RA Junction; Dr Fuentes; Dialysis Incision/Surgical 10/20/11; 2000; Lower, 10/20/112000 by 1120 by Site Right; Arm; 09/17/16; Mona Vang RN Joh nson, Lisa D, RN 1120 Incision/Surgical 10/20/11; 2002; Upper, 10/20/112002 by 1120 by Site Right; Arm; 09/17/16; Mona Vang RN Joh nson, Lisa D, RN 1120 documented in this encounter Social History Tobacco Use Types Packs/Day Years Used Date Smoking Tobacco: Never Alcohol Use Standard Drinks/Week Comments No 0 (1 standard drink = 0.6 oz pure alcoho l) Sex Assigned at Date Recorded Not on file documented as of this encounter OR Notes Anesthesia Postprocedure Evaluation - Brisa Hernandez MD - 10/20/2011 9:00 PM CST Anesthesia Post-Evaluation Note Patient: Herminio Victor Patient location: PACU Procedure(s) Performed: CREATE FISTULA ARTERIOVENOUS UPPER EXTREMITY - VEIN PATCH RIGHT ARM ARTERIOVENOUS FISTULA WITH BOVINE PATCH Anesthesia type: MAC Patient Condition Respiratory Function (RR / SpO2 / Airway Patency): Satisfactory Cardiac Function (HR / Rhythm / BP): Satisfactory Mental Status: Satisfactory Temperature: Satisfactory Pain Control: Satisfactory PONV: None Beta-Jh Therapy: None indicated Last Vitals: Filed Vitals: 10/20/11200910/20/11202910/20/112044 BP: 154/87 138/88 132/85 Pulse: 74 Temp: 97.7 ??F (36.5 ??C) Resp: 18 20 20 SpO2: 100% 100% 99% Additional Comments: LIFT GOUGER Anesthesia Preprocedure Evaluation - Brisa Hernandez MD - 10/20/2011 11:11 AM CST Anesthesia Evaluation history and physical reviewed . Pt has had prior anesthetic. No hx of anesthetic complications ROS/MED HX Pulmonary: (+) sleep apnea uses CPAP Neurologic: Comment: Developmental delay Cardiovascular: Comment: dyslipidemia (+) hypertension . . (-) syncope METS/Exercise Tolerance: Hematologic: Musculoskeletal: GI/Hepatic: (+) GERD Renal: (+) chronic renal disease type: ESRD Pt requires dialysis type: Hemodialysis Pt has no history of transplant Endo: (+) Type II DM Diabetic complications: nephropathy neuropathy retinopathy gastroparesis, (-) Type I DM Psychiatric: Infectious Disease: Other: Comment: Legally blind Physical Exam Normal systems: cardiovascular and pulmonary Airway Mallampati: IV TM distance: >3 FB Neck ROM: full Dental Comment: edentulous Cardiovascular Pulmonary Pre- Operative Diagnosis: RENAL FAILURE Procedure(s): CREATE FISTULA ARTERIOVENOUS UPPER EXTREMITY Allergies Allergen Reactions ??? Aspirin (Dihydroxyaluminum Aminoacetate) GI Disturbance GI bleeding Current facility-administered medications ordered prior to encounter: DISCONTD: fentanyl (SUBLIMAZE) 0.05 MG/ML injection DISCONTD: midazolam (VERSED) 1 MG/ML injection BUPivacaine (MARCAINE) 0.5 % injection HEParin (porcine) 1000 UNIT/ML injection sodium bicarbonate 8.4 % injection lidocaine (PF) (XYLOCAINE) 1 % injection ORAL Pain Medications - May administer oral pain medication as ordered by surgeon for take home use.Discontinue IV pain medication prior to administration of oral pain medication DISCONTD: ceFAZolin (ANCEF) 1 g vial to attach to IVPB DISCONTD: sodium chloride 0.9 % BOLUS 250 mL Current outpatient prescriptions ordered prior to encounter: warfarin (COUMADIN) 5 MG tablet Take 1 tablet by mouth once a week. On Tuesdays metoprolol (LOPRESSOR) 50 MG tablet Take 50 mg by mouth 2 times daily. aspirin 81 MG tablet Take 81 mg by mouth daily. Pt instructed to take baby aspirin post new fistula placed 07/16 amLODIPine (NORVASC) 10 MG tablet Take 10 mg by mouth daily. FOLIC ACID PO Take by mouth. bisacodyl (DULCOLAX) 5 MG EC tablet Take 5 mg by mouth 2 times daily. calcium acetate (PHOSLO) 667 MG CAPS Take by mouth 3 times daily (with meals). Cholecalciferol (VITAMIN D PO) Take by mouth. b hhaxuce-Z-bvsze acid (NEPHROCAPS) 1 MG capsule Take 1 capsule by mouth daily. lactulose (CHRONULAC) 10 GM/15ML solution Take 20 g by mouth daily. LISINOPRIL PO Take 40 mg by mouth daily. Hold on days of dialysis simvastatin (ZOCOR) 40 MG tablet Take 40 mg by mouth At Bedtime. Warfarin Sodium (COUMADIN PO) Take 2.5 mg by mouth daily. M,W,Th,F,S,S Patient Active Problem List Diagnoses Code ??? Hypertension 401.9AH ??? A-V fistula 447.0G Hemoglobin Date Value Range Status 03/03/2011 9.8* 13.3-17.7 (g/dL) Final INR Date Value Range Status 10/20/2011 1.41* 0.86-1.14 (no units) Final Sodium Date Value Range Status 03/03/2011 140 133-144 (mmol/L) Final Potassium Date Value Range Status 10/20/2011 5.1 3.4-5.3 (mmol/L) Final Carbon Dioxide Date Value Range Status 03/03/2011 25 20-32 (mmol/L) Final Creatinine Date Value Range Status 10/20/2011 13.23* 0.66-1.25 (mg/dL) Final Anesthesia Plan ASA Score 3 . Plan for MAC Anesthetic plan, risks, benefits and alternatives discussed with: patient or career representative. Possibility of blood products discussed. . LIFT GOUGER documented in this encounter Miscellaneous Notes Anesthesia Care Transfer Note - Curtis Cain Crna, APRN CRNA - 10/20/2011 8:14 PM CST Anesthesia Care Transfer Note Patient: Herminio Victor Transferred to: PACU Patient vital signs: stable Airway: none Pt exhibits spont resps, all monitors and alarms on in pacu, report given to RN, vss. LIFT GOUGER documented in this encounter Plan of Treatment Not on filedocumented as of this encounter Visit Diagnoses Not on filedocumented in this encounter Administered Medications Inactive Administered Medications - up to 3 most recent administrations Medication Order MAR Action Action Date Dose Rate Site ceFAZolin (ANCEF) 1 g vial to attach Given 10/20/2011 5:50 PM CS T 1 g to IVPB Routine, PRN, Starting on Tue10/20/11 at 1750, Anesthesia Intra-op documented in this encounter Care Teams Tile Grinder Relationship Specialty Start Date End Date Preet Huff PCP - General 06/24/11 documented as of this encounter
--- OUTSIDE RECORDS SUMMARY | 2022-09-01 20:25 | XMS_ITS | Encounter Summary ---
:1965 Author Organization [facility] Address [address] [place] [address]. [place] [address] Care Team Providers Name Role Phone HuffPreet cool Primary Care Provider Encounter Details Date Type Department Care Team Description 07/31/2012 Orders Only [facility] Yolanda Garcia CRF ( chronic renal [facility] [address], RN failure) (Primary Dx) [address] [place] [address] Social History Tobacco Use Types Packs/Day [...] Date/Time Associated Comments Diagnosis IR DIALYSIS Routine 07/31/2012 1:20 PM Results f or this FISTULOGRAM RIGHT CDT procedure are in the results section. documented in this encounter Results INT dialysis shuntogram right (07/31/2012 1:20 PM CDT) Anatomical Region Laterality Modality Upper Extremity Radio Fluoroscopy Specimen (Source) Anatomical Collection Method Collection Time Re ceived Time Location / / Volume Laterality 07/31/2012 1:20 PM CDT Impressions 07/31/2012 2:21 PM CDT I DIALYSIS SHUNTOGRAM RIGHT ??07/31/2012 1:20 PM HISTORY: 47-year-old male with a clotted right thigh profunda femoris artery to greater saphenous vein/common femoral vein cadaveric dialysis graft Comparison: Ultrasound dated 06/28/2012 Description of procedure: After obtainin g informed consent, the patient was placed in a supine position on the fluoroscopy table. The right proximal thigh was prepped and grazyna ped in the usual sterile manner. 1% lidocaine was injected for lo evie anesthesia. Preliminary ultrasound of the right thigh dialysis g raft was performed. This showed complete thrombosis of the graft. Access into the graft was obtained at its apex directed towards th e arterial anastomosis and at the arterial end directed towards the ve nous anastomosis. Ultrasound images were saved. 6 Kyr[place]z vascular she aths were placed. A Huerta balloon was passed into the inflow arter y. 4 mg TPA was injected throughout the graft. Mechanical thrombectomy of the graft was performed using an AngioJet device as well as a bottle cleaner device. Subs equently, moderate to severe focal stenoses within the graft were bishop ntified near its apex, at the venous anastomosis, and moderate stenose s were identified on the arterial side. The stenoses on the arterial side were d ilated with a 5 mm high pressure balloon and a 5 mm scoring ball oon. The stenosis at the venous anastomosis was dilated with a 6 mm balloon and 5 mm scoring balloon. The stenoses at the apex of the graft were dilated with a 5 mm high pressure balloon and a 5 mm scor ing balloon. Following these interventions, there appeared to be impr irene luminal diameter within the graft and improved flow. There remai sol a moderate stenosis at the apex of the graft and mild to modera te stenosis at the venous anastomosis. These were refractory to mu ltiple balloon dilations. At this time, these stenoses did not appear to be limiting flow therefore, it was elected end the proced ure. Both sheaths were pulled. Pressure was held at the punctur e site for 10 minutes with good hemostasis. The patient tolerated the procedure well . There were no immediate postprocedure complications. The patient 's vital signs were monitored by radiology nursing staff under my supe rvision and remained stable throughout the study. Medications: Versed 2 mg, fentanyl 100 m cg, TPA 4 mg Sedation time: 90 minutes Fluoroscopy time: 13.4 minutes Local anesthetic: 2 cc Contrast: 77 cc Isovue Impression: Dialysis graft declot perfor med as described above. There remain focal stenosis at the apex of the graft and at the venous anastomosis. Recommend followup ultrasou nd in one month for further evaluation. G Jagdeep Holman MD IMG IR ORDERABLES documented in this encounter Visit Diagnoses Diagnosis CRF (chronic renal failure) - Primary Chronic kidney disease, unspecified documented in this encounter Care Teams Assistant Store Manager Relationship Specialty Start Date End Date Preet Huff PCP - General 06/24/11 documented as of this encounter
--- OUTSIDE RECORDS SUMMARY | 2022-09-01 20:25 | XMS_ITS | Encounter Summary ---
:1965 Author Organization [facility] Address [address] [place] [address] Care Team Providers Name Role Phone Preet Huff Primary Care Provider Encounter Details Date Type Department Care Team Description 07/31/2012 Orders Only [facility] AteMarisa mai A, ESRF ( end stage renal [place] Interventional [employer] OVERHAULER julianna lure) (H) (Primary Radiology Dx) [address] [place] [id number] Social History Tobacco Use Types Packs/Day Years [...] disease documented in this encounter Care Teams Arc Welder Relationship Specialty Start Date End Date Preet Huff PCP - General 06/24/11 documented as of this encounter
--- OUTSIDE RECORDS SUMMARY | 2022-09-01 20:25 | XMS_ITS | Encounter Summary ---
:1965 Author Organization [place] Address [address] [facility] [place] [address] Care Team Providers Name Role Phone Preet Huff Primary Care Provider Encounter Details Date Type Department Care Team Description 08/01/2012 Hospital Encounter [facility] LatoyaMagaly suggst ESR F (end stage renal failure) (H) (Primary Dx); Ariane Moran PMD AVF (arteriovenous fistula) (H) [address] [place] [address] RADIOLOGIC [phone] [id number] Social History Tobacco Use Types Packs/Day Years Used Date Smoking Tobacco: Never Smokeless Tobacco: Never Alcohol Use Standard Drinks/Week Comments No 0 (1 standard drink = 0.6 oz pure alcoho l) Sex Assigned at Date Recorded Not on file documented as of this encounter Last Filed Vital Signs Vital Sign Reading Time Taken Comments Blood Pressure 161/91 08/01/2012 5:40 PM CDT Pulse 64 08/01/2012 10:01 AM CDT Temperature 36.3 ??C (97.4 ??F) 08/01/2012 4:20 PM CDT Respiratory Rate 20 08/01/2012 5:40 PM CDT Oxygen Saturation 100% 08/01/2012 5:40 PM CDT Inhaled Oxygen Concentration - - Weight - - Height - - Body Mass Index - - documented in this encounter Medications at Time of Discharge Medication Sig Dispensed Refills Start Date End Date b uokulog-H-qqsss acid Take 1 capsule by 0 03/04/2016 [...] A-V as needed for pain. fistula (H) documented as of this encounter Progress Notes Jonn Lorenz RN - 08/01/2012 6:18 PM CDT Pt and Aunt VU of DC instructions. Copies given. AVS given. Stent card given. Plavix prescription and drug info. Given. Pt left with transport and Aunt. Roberta Schmitz RN - 08/01/2012 2:37 PM CDT DIALYSIS PRE-ASSESSMENT: All machine safety checks completed and passed. Total chlorine checks less than 0.1ppm Revaclear Dialyzer# [id number] Blood lines # [id number] All connections secured, saline line double clamped. Venous and arterial parameters set Good circulation to right leg LOC:Pt alert Lungs clear Skin warm and dry [facility] Roberta Schmitz RN - 08/01/2012 2:37 PM CDT POTASSIUM 4.1 08/01/2012 HGB 9.5 08/01/2012 Arterial and Venous sheaths intact to right thigh graft. Dialysis lines connected to sheaths with nodifficulty initially. BFR had to be at 300ml/min due to increasing venous return pressures Pt ran 2.15 hours on a K 2/3 bath, with 0.7L removed. Blood flow rate of 400-180 was obtained. Complications: 1) SBP suddenly dropped into the 70's, twice throughout Rx. UF stopped, NS boluses totalled 600ml. 2) Due to increasing venous pressures, venous sheath removed and #15 ga needle used tocannulate graft, with no difficulty. 3) Within last 30 minutes of Rx, arterial sheath was not functioning properly--??[id number]-[id number]?? Dr. Mason here at bedside. Order rec'd to d/c Rx 15 minutes early. Total Rx was 2hrs, 15 minutes .Education regarding ESRD given to patient and aunt with good understanding. Hepatitis B Ag Neg, Hepatitis B Ab Immune within the past year. Total blood volume processed:36L Hemostasis of needle sites achieved after 20 minutes. POST ASSESSMENTS: Skin warm and dry, alert, denies discomfort, Lungs clear, Resp rate regular, apical rate regular. No edema. See flowsheet in [facility] for further details. Report given to Nancy Martin RN. Ariadne Schmitz RN [facility] Wojciech Holman MD - 08/01/2012 2:24 PM CDT Renal Medicine Inpatient Dialysis Note Assessment/Plan: Patient admitted from interventional radiology for hemodialysis (see brief admit note) 1. ESRD -TTHS -last dialysis 07/27 2. Access issues -clotted AVF yesterday/declotted and reclotted prior to dialysis -second proceducre today -dialyzed to ensure access working post 2 declots 3. Sp angioplasty/stent -initiate plavix Seen while on run Interval History: 2 apparent blood leaks while on run. System times two lost. Somewhere in the range of a few hundred cc's blood loss. Comfortable. ROS GENERAL: NAD, No fever,chills R: NEGATIVE for significant cough or SOB CV: NEGATIVE for chest pain, palpitations EXT: no change edema Dialysis Parameters: Reviewed There were no vitals filed for this visit. Temp: [97.5 ??F (36.4 ??C)-98.4 ??F (36.9 ??C)] 97.5 ??F (36.4 ??C) Pulse: [64] 64 Heart Rate: [63-82] 74 Resp: [14-22] 20 BP: (137-198)/(76-101) 137/85 mmHg SpO2: [100 %] 100 % Current Weight: ? Dry Weight: 4 above dry yesterday a outpatient unit Dialysis Temp: 36.5 ??C Access Device: AVF Access Site: right groin Dialyzer: Optiflux 160 Dialysis Bath: per protocol Sodium Profile: n UF Goal: 4 Blood Flow Rate (mL/min): 400 Total Treatment Time (hrs): 4 Heparin: Low dose as required EPO dose: n Zemplar: n IV Fe: n Medications and Allergies: Reviewed Physical Exam: Seen and examined during course of dialysis run Filed Vitals: 08/01/12 1345 08/01/12 1400 08/01/12 1415 BP: 181/101 162/91 137/85 Pulse: Temp: Resp: SpO2: RESP: symmetric excursion, good effort, lungs clear - no rales, rhonchi or wheezes CV: RRR, normal S1 S2 ABDOMEN: S/NT, BS present MS: 1 plus edema EXT: Access canulated without issue Data: Lab 08/01/12 1400 08/01/12 1345 NA 140 Unsatisfactory specimen - hemolyzed Charge credited POTASSIUM 4.1 Unsatisfactory specimen - hemolyzed Charge credited CHLORIDE 104 Unsatisfactory specimen - hemolyzed Charge credited CO2 22 Unsatisfactory specimen - hemolyzed Charge credited ANIONGAP 14 Unsatisfactory specimen - hemolyzed Charge credited GLC 87 Unsatisfactory specimen - hemolyzed Charge credited BUN 62* Unsatisfactory specimen - hemolyzed Charge credited CR 9.76* Unsatisfactory specimen - hemolyzed Charge credited GFRESTIMATED 6* Unsatisfactory specimen - hemolyzed Charge credited GFRESTBLACK 7* Unsatisfactory specimen - hemolyzed Charge credited JON 8.6 Unsatisfactory specimen - hemolyzed Charge credited Lab 08/01/12 1345 HGB 9.5* Wojciech Holman [facility] - Nephrology [phone] Jazmín Soriano, RN, RN - 08/01/2012 1:37 PM CDT Pre report taken from patrick garcia RN Pt now on care suites/dialysis pool Tejas Klein MD - 08/01/2012 12:30 PM CDT Procedure: Fistula revascularization Physician: Latoya Complications: None Report: Re-occluded fistula following revascularization yesterday. Fistula declotted. High grade restenosis at venous anastomosis and moderate residual stenosis at apex of fistula. Both angioplastied to 6 mm with moderate residual. 6 mm Viabahn stent grafts placed at both MORTGAGE LOAN ASSISTANT sites. Plan: Dialysis today at [facility]. Needs 3-6 months of Plavix. Discussed with Nephrology. Yolanda Garcia RN - 08/01/2012 11:17 AM CDT Interventional Radiology Intra-procedural Nursing Note Patient Name: Herminio Victor Today's Date: August 01, 2012 Start Time: 1121 End of procedure time: 1227 Procedure: Right thigh Fistula declott Report given to: Jazmín lending advisor Time pt departs: 1243 Search Optimization Analyst: Other Notes: 1121 Pt prepped draped Pt sleepy Dr Klein to begin. 1155 Dr Mason here, to discuss case with Dr Klein. [address] 2 [place] Viabahn stents 6 mm x 5 mm, lot # [id number] & [id number]. 1227 case completed with out problems, will send to dialysis. Yolanda Garcia STERED LAND SURVEYOR Nancy Martin RN - 08/01/2012 11:02 AM CDT Iv team completed iv and Dr. Klein here to see pt. Consent signed await IR staff Nancy Martin RN - 08/01/2012 10:27 AM CDT Pt has weak fistula noted in right groin pedal pulse pedal and post tib good. Difficult iv called ivteam at present. Lungs clear and heart tones normal documented in this encounter Plan of Treatment Not on filedocumented as of this encounter Procedures Procedure Name Priority Date/Time Associated Comments Diagnosis BASIC METABOLIC PANEL Routine 08/01/2012 2:00 PM Results for this CDT procedure are i n the results section. HEMOGLOBIN STAT 08/01/2012 1:45 PM Results f or this CDT procedure are i n the results section. BASIC METABOLIC PANEL Routine 08/01/2012 1:45 PM Results for this CDT procedure are i n the results section. IR DIALYSIS Routine 08/01/2012 12:41 ESRF (end stage Results for this FISTULOGRAM RIGHT PM CDT renal failure) (H) proc edure are in the results section. documented in this encounter Results (ABNORMAL) Basic metabolic panel (08/01/2012 2:00 PM CDT) Analysis Performed At Path logist Time Signature Sodium 140 133 - 144 [place] mmol/L [facility] Potassium 4.1 3.4 - 5.3 [facility] mmol/L [facility] Chloride 104 94 - 109 [place] mmol/L [facility] Carbon Dioxide 22 20 - 32 [place] mmol/L [facility] Anion Gap 14 6 - 17 [place] mmol/L [facility] Glucose 87 60 - 99 [place] mg/dL [facility] Urea Nitrogen 62 (H) 5 - 24 [place] mg/dL [facility] Creatinine 9.76 (H) 0.66 - [facility] 1.25 mg/dL [facility] GFR Estimate 6 (L) >60 [place] mL/min/1.[address] LAB GFR Estimate If 7 (L) >60 [place] Black mL/min/1.[address] LAB Calcium 8.6 8.5 - 10.4 [place] mg/dL [facility] Specimen Anatomical Collection Method Collection Time Receive d Time (Source) Location / / Volume Laterality 08/01/2012 2:00 PM 2 2:15 CDT PM CDT Tejas Klein MD LAB - BLOOD ORDERABLES Performing Organization Address City/State/ZIP Code Phon e Number M [facility] [address] [facility] [place] [address] [facility] Basic metabolic panel (08/01/2012 1:45 PM CDT) Component Value Ref Test Analysis Performed At [facility] Range Method Time Signature Sodium Unsatisfactory specimen - hemolyzed 133 - [place] Charge credited 144 [facility] mmol/L [facility] Potassium Unsatisfactory specimen - hemolyzed 3.4 - [facility] Charge credited 5.3 [facility] mmol/L [facility] Chloride Unsatisfactory specimen - hemolyzed 94 - 109 [place] Charge credited mmol/L [facility] Carbon Dioxide Unsatisfactory specimen - hemolyzed 20 - 32 [place] Charge credited mmol/L [facility] Anion Gap Unsatisfactory specimen - hemolyzed 6 - 17 [facility] Charge credited mmol/L [facility] Glucose Unsatisfactory specimen - hemolyzed 60 - 99 [place] Charge credited mg/dL [facility] Urea Nitrogen Unsatisfactory specimen - hemolyzed 5 - 24 [facility] Charge credited mg/dL [facility] Creatinine Unsatisfactory specimen - hemolyzed 0.66 - [facility] Charge credited 1.25 [place] mg/dL [facility] GFR Estimate Unsatisfactory specimen - hemolyzed >60 [facility] Charge credited mL/min/1 [facility] .7m2 [facility] GFR Estimate Unsatisfactory specimen - hemolyzed >60 [place] If Black Charge credited mL/min/1 [facility] .7m2 [facility] Calcium Unsatisfactory specimen - hemolyzed 8.5 - [place] Charge credited 10.4 [facility] Specimen Anatomical Collection Method Collection Time Receive d Time (Source) Location / / Volume Laterality 08/01/2012 1:45 PM 2 1:51 CDT PM CDT G Jagdeep Holman MD LAB - BLOOD ORDERABLES Performing Organization Address City/State/ZIP Code Phon e Number M [facility] [address] [id number] [facility] (ABNORMAL) Hemoglobin (08/01/2012 1:45 PM CDT) athologist Signature Hemoglobin 9.5 (L) 13.3 - 17.7 [place] g/dL [facility] Specimen Anatomical Collection Method Collection Time Receive d Time (Source) Location / / Volume Laterality Blood specimen 08/01/2012 1:45 PM 012 1:51 (specimen) CDT PM CDT G Jagdeep Holman MD LAB - BLOOD ORDERABLES Performing Organization Address City/State/ZIP Code Phon e Number M [facility] [address] [phone] [facility] INT dialysis shuntogram right (08/01/2012 12:41 PM CDT) Anatomical Region Laterality Modality Upper Extremity Radio Fluoroscopy Specimen (Source) Anatomical Collection Method Collection Time Re ceived Time Location / / Volume Laterality 08/01/2012 12:41 PM CDT Impressions 08/04/2012 12:20 PM CDT INTERVENTIONAL RADIOLOGY DIALYSIS SHUNTO GRAM RIGHT ??08/01/2012 12:41 PM HISTORY: A 47-year-old male with right t high profunda femoris artery to greater saphenous vein/common femoral vein cadaveric artery dialysis fistula which has rethrombosed. The fistula was revascularized 1 day ago. COMPARISON: 07/31/2012. TECHNIQUE: The procedure was explained t o the patient. The graft was not easily palpable. Therefore ultrasoun d was used to access the graft. Under sterile ultrasound guidance , a puncture was made into the arterial limb of the graft and a 6 F rench sheath was placed antegradely. Subsequently ultrasound was used to access the venous limb of the graft and a 6 Trin[place] sheath was placed retrogradely just beyond the apex of the graft. A fistulog isrrael was performed. A catheter and wire were advanced across the arteri al anastomosis and the catheter was exchanged for a [place] ball oon catheter and the arterial plug was pulled into the graft. 4 mg tPA was then instilled throughout the entire course of the igor t. Mechanical thrombectomy was then performed with the Origo.by Angio Jet device for a total of 180 seconds. A completion fistulogram was pe rformed. A 6 mm balloon was then used to dilate stenoses in the prox imal arterial limb, the apex, the distal venous limb, and the venous a nastomosis of the graft. A completion fistulogram was again perform ed. Repeat angioplasty was performed of the venous anastomosis and the fistula and a completion fistulogram was again performed. Because of recurrent residual stenoses, a 6 mm x 5 cm Viabahn stent wa s deployed initially at the venous anastomosis stenosis and at the a pex of the fistula. A completion fistulogram was again perform ed. 60 mg of papaverine was then instilled into the venous limb of t he fistula and a completion fistulogram was again performed. The she aths were left in place and the patient was transferred to dialysis. There are no immediate complications. Fluoroscopy time: 9.1 minutes Contrast: 65 mL Isovue Local anesthetic: 4 mL 1% lidocaine Medications: 1.5 mg IV Versed, 75 mcg IV fentanyl, 4 mg tPA, 60 mg papaverine Sedation time: 69 minutes The patient was monitored by radiology n ursing staff under my supervision and remained stable througho ut the study. FINDINGS: The initial fistulogram demons trates rethrombosis of the fistula with a moderate amount of thromb us present predominantly along the venous limb of the fistula. Th ere was some extravasation along the graft from recent attempted ac cesses. The fistula was easily declotted with 4 mg of tPA and me chanical thrombectomy. Following declot, there was moderate res idual stenosis identified at the venous anastomosis and at the apex o f the graft as well as a focal stenosis in the proximal arterial limb of the graft immediately proximal to the arterial access sheath. These were initially dilated with a 6 mm balloon. The arterial stenos is resolved, however there was moderate residual stenosis remaining at the venous anastomosis and at the apex of the graft. Repeat ang ioplasty was again performed with prolonged inflation however there w as persistent stenosis remaining. Therefore 6 mm Viabahn stents were placed with good result without significant residual stenosis up on completion. However following placement of Viabahn stenting, there was new stenosis identified in the venous limb proximal t o the venous anastomosis stent. This was felt to be likely due to spasm. This resolved following infusion of 60 mg of papaverin e. Upon completion the fistula appeared widely patent with good flow and without residual thrombus or stenosis. The outflow iliac veins appear widely patent. IMPRESSION: Successful revascularization of rethrombosed right thigh fistula requiring placement of Viabahn s tents at the apex of the fistula and at the venous anastomosis. G Jagdeep Holman MD IMG IR ORDERABLES documented in this encounter Visit Diagnoses Diagnosis ESRF (end stage renal failure) (H) - [facility] End stage renal disease AVF (arteriovenous fistula) (H) Arteriovenous fistula, acquired documented in this encounter Administered Medications Inactive Administered Medications - up to 3 most recent administrations Medication Order MAR Action Action Date Dose Rate Site alteplase (Activase) 2 MG injection Starting on Tue08/01/12 at 1111, For 1 dose, Carolyn Garcia: cabinet override alteplase (Activase) injection 2 mg Given by Other 08/01/2012 11:41 AM CDT 2 mg 2 mg, INTRA-ARTERIAL, ONCE PRN, when verbally ordered by prescriber during the procedure., Starting on Tue08/01/12 at 1200, For 1 dose, Prescriber will administer each dose, IR Intra-procedure alteplase (Activase) injection 4 mg Given by Other 08/01/2012 11:38 AM CDT 2 mg 4 mg, INTRA-ARTERIAL, ONCE PRN, when verbally ordered by prescriber during the procedure., Starting on Tue08/01/12 at 1117, For 1 dose, Prescriber will administer each dose, IR Intra-procedure fentaNYL (SUBLIMAZE) 0.05 MG/ML injectio n Starting on Tue08/01/12 at 1027, For 1 dose, Carolyn Garcia: cabinet override fentaNYL (SUBLIMAZE) injection 25-50 mcg Given 08/01/2012 12:00 PM CDT 25 mcg 25-50 mcg, Intravenous, EVERY 5 MIN PRN, severe pain (7-10), If inadequate response may repeat 25 mcg IV slowly Q 5 min PRN severe pain, Administer over 2 Minutes, Starting on Tue08/01/12 at 1115, Doses can be exceeded under direct oversight of patient by physician., IR Intra-procedure Given 08/01/2012 11:43 AM CDT 25 mcg Given 08/01/2012 11:19 AM CDT 25 mcg iopamidol (ISOVUE-300) IV solution 61% 150 Given 08/01/2012 12:32 PM CDT 65 mLs mL 150 mL, Intravenous, ONCE, On Tue08/01/12 at 1245, For 1 dose, IR Intra-procedure lidocaine (PF) (XYLOCAINE) 1 % Given by Other 08/01/2012 11:20 AM CDT 4 mLs injection 30 mL 30 mL, Subcutaneous, ONCE PRN, for local anesthetic.?When verbally ordered by prescriber during the procedure., Starting on Tue08/01/12 at 1115, For 1 dose, Dose to be divided into smaller volumes appropriate for the procedure., IR Intra-procedure midazolam (VERSED) 1 MG/ML injection Starting on Tue08/01/12 at 1027, For 1 dose, Carolyn Garcia: cabinet override midazolam (VERSED) injection 0.5-1 mg Given 08/01/2012 12:00 PM CDT 0.5 mg 0.5-1 mg, Intravenous, Administer over 1 Minutes, EVERY 4 MIN PRN, sedation, If inadequate response may repeat 0.5 mg IV slowly Q 4 minutes PRN sedation until desired response., Starting on Tue08/01/12 at 1115, Doses can be exceeded under direct oversight of patient by physician., IR Intra-procedure Given 08/01/2012 11:43 AM CDT 0.5 mg Given 08/01/2012 11:18 AM CDT 0.5 mg papaverine 30 MG/ML injection Starting on Tue08/01/12 at 1220, For 1 dose, Carolyn Gracia: margaret ghosh papaverine injection 30 mg Given by Other 08/01/2012 12:23 PM CDT 60 mg 30 mg, Intravenous, ONCE, On Tue08/01/12 at 1230, For 1 dose, IR Intra-procedure documented in this encounter Active and Recently Administered Medications Times are shown in CDT. Scheduled Medication Order 07/30/2012 07/31/2012 08/01/2012 clopidogrel (PLAVIX) tablet 75 mg 1415 (Canceled Entry - Provider: Orders Generic Provider) 75 mg, Oral, DAILY, First dose on Tue08/01/12 at 1415 iopamidol (ISOVUE-300) IV solution 61% 150 mL (COMPLETED) 1232 (Given - Provider: Everardo Craven) 150 mL, Intravenous, ONCE, On Tue at 1245, For 1 dose, IR Intra-procedure papaverine injection 30 mg (COMPLETED) 1223 (Given by Other - Provider: Yolanda Garcia RN - Comment: per Dr Klein) 30 mg, Intravenous, ONCE, Tue08/01/12 at 1230, For 1 dose, IR Intra-procedure PRN Medication Order 07/30/2012 07/31/2012 08/01/2012 alteplase (Activase) injection 2 mg (COMPLETED) 1141 (Given by Other - Provider: Yolanda Garcia RN - Comment: per Dr Klein) 2 mg, INTRA-ARTERIAL, ONCE PRN, when billie bally ordered by prescriber during the procedure., Starting Tue08/01/12 at 1200, For 1 dose, Prescriber will administer each dose, IR Intra-procedure alteplase (Activase) injection 4 mg (COMPLETED) 1138 (Given by Other - Provider: Yolanda Garcia RN - Comment: per Dr Klein) 4 mg, INTRA-ARTERIAL, ONCE PRN, when billie bally ordered by prescriber during the procedure., Starting Tue08/01/12 at 1117, For 1 dose, Prescriber will administer each dose, IR Intra-procedure fentaNYL (SUBLIMAZE) injection 25-50 mcg (CANCELED) 1119 (Given - Provider: Yolanda Garcia RN)1143 (Given - Provider: Yolanda Garcia RN)1200 (Given - Provider: Yolanda Garcia RN) 25-50 mcg, Intravenous, for 2 Minutes, E VERY 5 MIN PRN, Starting Tue08/01/12 at 1115, severe pain, If inadequate response may repeat 25 mcg IV slowly Q 5 min PRN severe pain, Doses can be exceeded unde r direct oversight of patient by physician., IR Intra-procedure lidocaine (PF) (XYLOCAINE) 1 % injection 30 mL (COMPLETED) 1120 (Given by Other - Provider: Yolanda Garcia RN - Comment: per Dr Klein) 30 mL, Subcutaneous, ONCE PRN, for local anesthetic.?When verbally ordered by prescriber during the procedure., Starting Tue08/01/12 at 1115, For 1 dose, Dose to be divided into smaller volumes appropriate for the procedure., IR Intra-procedure midazolam (VERSED) injection 0.5-1 mg (CANCELED) 1118 (Given - Provider: Yolanda Garcia RN)1143 (Given - Provider: Yolanda Garcia RN)1200 (Given - Provider: Yolanda Garcia RN) 0.5-1 mg, Intravenous, for 1 Minutes, EV KAROL 4 MIN PRN, Starting Tue08/01/12 at 1115, sedation, If inadequate response may repeat 0.5 mg IV slowly Q 4 minutes PRN sedation until desired response., Doses can be exceeded under direct oversight of patient by physician., IR Intra-procedure documented in this encounter Care Teams Budget Accountant Relationship Specialty Start Date End Date Preet Huff PCP - General 06/24/11 documented as of this encounter
--- OUTSIDE RECORDS SUMMARY | 2022-09-01 20:25 | XMS_ITS | Encounter Summary ---
:1965 Author Organization [place] Address [address] [place] [address]. [place] [address] Care Team Providers Name Role Phone Preet Huff Primary Care Provider Encounter Details Date Type Department Care Team Description 08/03/2012 Orders Only [facility] Yolanda Garcia CRF ( chronic renal [facility] [address], RN failure) (Primary Dx) [address] [place] [address] Social History Tobacco Use Types Packs/Day Years Used Date Smoking Tobacco: Never Smokeless Tobacco: Never Alcohol Use Standard Drinks/Week Comments No 0 (1 standard drink = 0.6 oz pure alcoho l) Sex Assigned at Date Recorded Not on file documented as of this encounter Plan of Treatment Not on filedocumented as of this encounter Visit Diagnoses Diagnosis CRF (chronic renal failure) - Primary Chronic kidney disease, unspecified documented in this encounter Care Teams Mobile Mechanic Relationship Specialty Start Date End Date Preet Huff PCP - General 06/24/11 documented as of this encounter
--- OUTSIDE RECORDS SUMMARY | 2022-09-01 20:25 | XMS_ITS | Encounter Summary ---
:1965 Author Organization [facility] Address [address] [facility] [place] [address] Care Team Providers Name Role Phone Preet Huff Primary Care Provider Reason for Visit Auth/Cert - Closed Specialty Diagnoses / Procedures Referred By Contact Refer red To Contact Surgery Diagnoses RENAL FAILURE Periop Services Procedures CREATE FISTULA ARTERIOVENOUS UPPER EXTREMITY [address], [address] [place] [address] Phone: Referral ID Status Reason Start Date Expiration Date Visits Requ ested Visits Authorized [id number] Closed 10/14/2011 04/11/2012 1 1 Encounter Details Date Type Department Care Team Description 10/20/2011 Surgery [facility] Rober Saravia VEIN PAT CH RIGHT ARM [place] [facility] MD Preet ARTERIOVENOUS FISTULA Services [address] WITH BOVINE PATCH [address] [place] [address] [place] [id number] [phone] Surgery Details Date/Time Status Location OR Service Patient Case Class Case Tr auma Class Type Case? 10/20/11 5:40 Posted OR OR [facility] General Same Day PM Surgery Panel 1 Procedure LRB Anes Op Region Wound Class Commen ts VEIN PATCH RIGHT ARM Right MAC Arm I-Clean VEIN PATCH RIGHT ARM ARTERIOVENOUS FISTULA WITH ARTERIOVENOUS FISTULA WITH BOVINE PATCH BOVINE PATCH Surgeon Surgeon Role Service Panel Rober Saravia [...] Sign Reading Time Taken Comments Blood Pressure 132/85 10/20/2011 8:45 PM COST COORDINATOR Pulse 74 10/20/2011 8:10 PM COST COORDINATOR Temperature 36.5 ??C (97.7 ??F) 10/20/2011 8:10 PM COST COORDINATOR Respiratory Rate 20 10/20/2011 8:45 PM COST COORDINATOR Oxygen Saturation 99% 10/20/2011 8:45 PM COST COORDINATOR Inhaled Oxygen Concentration - - Weight 76.3 kg (168 lb 3.4 oz) 10/20/2011 2:30 PM COST COORDINATOR Height 167 cm (5' 5.75) 10/20/2011 11:42 AM COST COORDINATOR Body Mass Index 27.36 10/20/2011 11:42 AM COST COORDINATOR documented in this encounter Discharge Instructions Discharge InstructionsDannielle Davis RN - 10/20/2011 8:23 PM CST Same Day Surgery Discharge Instructions For Sedation and General Anesthesia 1. It is not unusual to feel light-headed or faint, up to 24 hours after surgery or while taking pain medication. If you have these symptoms; sit for a few minutes before standing and have someone assist you when you get up to walk or use bathroom. 2. You should rest and relax for the next 24 hours and must make arrangements to have someone stay with you for at least 24 hours after your discharge. Avoid hazardous and strenuous activities. 3. DO NOT DRIVE any vehicle or operate mechanical equipment for 24 hours following the end of your surgery. Even though you feel normal, your reactions may be affected by the medication you have received. 4. Do not drink alcoholic beverages for 24 hours following your surgery. 5. Drink clear liquids (apple juice, concepcion sivan, broth, 7-up etc.) Progresses to your regular diet as you feel able. 6. Any questions of a medical nature, call your physician. 7. Do not make important decisions for 24 hours. COORDINATOR documented in this encounter Medications at Time of Discharge Medication Sig Dispensed Refills Start Date End Date b wvputae-V-bzafa acid Take 1 capsule by 0 03/04/2016 [...] by mouth 0 12/16/2017 tablet every evening amLODIPine (NORVASC) 10 Take 10 mg by mouth 0 07/31/2012 MG tablet daily. aspirin 81 MG tablet Take 81 mg by mouth 0 04/24/2012 daily. Pt instructed to take baby aspirin post new fistula placed 07/16 Cholecalciferol (VITAMIN Take by mouth. 0 05/02/2012 D PO) FOLIC ACID PO Take by mouth. 0 012 hydrocodone-acetaminophen Take 1 tablet by 20 tablet 0 10/1005/02/2012 5-325 MG per mouth every 6 hours tabletIndications: A-V as needed for pain. fistula (H) warfarin (COUMADIN) 5 MG Take 1 tablet by 0 04/24/2012 tablet mouth once a week. On Tuesdays Warfarin Sodium (COUMADIN Take 2.5 mg by mouth 0 04/24/2012 PO) daily. M,W,Th,F,S,S documented as of this encounter Progress Notes Rober Saravia MD - 10/31/2011 6:44 PM COST COORDINATOR COORDINATOR Hesham Madera MD - 10/20/2011 8:12 PM CST Surgery Ok to DC to home if transportation available, if not admit to observation. Hesham Madera MD Surgery Resident Pager [phone] COORDINATOR Wojciech Holman MD - 10/20/2011 3:18 PM CST Inpatient Dialysis Progress Note Assessment and Plan: 1. ESRD 2. Hyperkalemia 3. Access issues 4. Anemia 5. Secondary Hyperparathyroidism Seen semi-urgently on dialysis for increased K Interval History: Dialyzed yesterday at [facility] Scheduled for outpatient access revision but found to have increased K Initial 6.7 repeat 6.8 No CP or SOB. Comfortable Dialysis Parameters: Filed Vitals: 10/20/11 1142 10/20/11 1430 Weight: 76.2 kg (167 lb 15.9 oz) 76.3 kg (168 lb 3.4 oz) Temp: [97.4 ??F (36.3 ??C)-98.2 ??F (36.8 ??C)] 97.4 ??F (36.3 ??C) Pulse: [66-72] 72 Resp: [14] 14 BP: (130-158)/(77-86) 155/86 mmHg SpO2: [100 %] 100 % Current Weight: 76.2 Dry Weight: 77 Dialysis Temp: 36.5 ??C Access Device: CVC, maturing fistula Access Site: right Dialyzer: Optiflux 160 Dialysis Bath: 1 Sodium Profile: no UF Goal: 500 cc Blood Flow Rate (mL/min): 400 Total Treatment Time (hrs): 2 Heparin: Low dose as required Review of Systems: GENERAL: NAD, No fever,chills E/M: NEGATIVE for ear, mouth and throat problems R: NEGATIVE for significant cough or SOB CV: NEGATIVE for chest pain, palpitations GI: NEGATIVE for abdominal pain, heartburn, nausea, vomiting or change in bowel pattern EXT: no change edema ROS otherwise negative Medications: EPO dose: no Zemplar: no IV Fe: no Physical Exam: Vitals were reviewed Patient Vitals in the past 24 hrs: BP Temp Temp src Pulse Resp SpO2 Height Weight 10/20/11 1515 155/86 mmHg - - 72 - - - - 10/20/11 1500 131/80 mmHg - - 68 - - - - 10/20/11 1445 144/82 mmHg - - 66 - - - - 10/20/11 1430 158/85 mmHg 97.4 ??F (36.3 ??C) - 66 - - - 76.3 kg (168 lb 3.4 oz) 10/20/11 1142 130/77 mmHg 98.2 ??F (36.8 ??C) Oral 67 14 100 % 1.67 m (5' 5.75) 76.2 kg (167 lb 15.9 oz) Temperatures: Current - Temp: 97.4 ??F (36.3 ??C); Max - Temp Av.8 ??F (36.6 ??C) Min: 97.4 ??F(36.3 ??C) Max: 98.2 ??F (36.8 ??C) Respiration range: Resp Av Min: 14 Max: 14 Pulse range: Pulse Av.8 Min: 66 Max: 72 Blood pressure range: Systolic (24hrs), Av mmHg, Min:130 mmHg, Max:158 mmHg ; Diastolic (24hrs), Av mmHg, Min:77 mmHg, Max:86 mmHg Pulse oximetry range: SpO2 Av % Min: 100 % Max: 100 % No intake or output data in the 24 hours ending 10/20/11 1519 GENERAL: awake, alert, follows HEENT: NC/AT, PERRLA, EOMI, non icteric, pharynx moist without lesion NECK: supple, no masses or adenopathy RESP: symmetric excursion, good effort, lungs clear - no rales, rhonchi or wheezes CV: RRR, normal S1 S2 ABDOMEN: S/NT, BS present MS: no edema SKIN: Catheter site clean without drainage Data: Recent Labs Lab Test 10/20/11 1235 10/20/11 1140 03/03/11 1250 01/15/11 1108 ??? NA -- -- 140 138 ??? POTASSIUM 6.8* 6.7* -- -- ??? CHLORIDE -- -- 100 97 ??? CO2 -- -- 25 32 ??? ANIONGAP -- -- 15 8 ??? GLC -- -- -- -- ??? BUN -- -- -- -- ??? CR -- 13.23* -- -- ??? JON -- -- -- -- Hemoglobin Date Value Range Status 03/03/2011 9.8* 13.3-17.7 (g/dL) Final Wojciech Holman MD COORDINATOR Roberta Schmitz RN - 10/20/2011 2:59 PM CST POTASSIUM 6.8 10/20/2011 HGB 9.8 03/03/2011 Rec'd pt from Same Day Surgery needing emergent dialysis for K 6.8. Dialysis started with lines reversed from RIJ tunneled catheter. Pt ran 2 hours with 0L removed. Pre-Weight: 76.3 kg (168 lb 3.4 oz),EDW 77kgs, POST-WT 76.3kgs. Complications: None. Meds given: None. Dr. Mason visited pt during run.Report given to RN. Ariadne Schmitz RN [facility] COORDINATOR documented in this encounter H&P Notes Rober Saravia MD - 10/19/2011 7:06 AM COST COORDINATOR COORDINATOR documented in this encounter Nursing Notes Dannielle Davis RN - 10/20/2011 8:29 PM CST Pt informed he will have dialysis tomorrow COORDINATOR America Rdoriguez RN - 10/20/2011 2:10 PM CST Report called to dialysis nurse, patient transferred to dialysis unit by wheelchair with mother, clothes and chart. COORDINATOR America Rodriguez RN - 10/20/2011 1:40 PM CST Serum potassium high. Dr. Saravia arranging dialysis to be done today before surgery. COORDINATOR Amercia Rodriguez RN - 10/20/2011 11:47 AM CST ACCUCHECK 79 AT 1145. PATIENT ANSWERS SOME QUESTIONS APPROPRIATELY. PATIENT'S AUNT IS HIS BOTTOM IRONER. COORDINATOR documented in this encounter OR Notes OR Anesthesia - Rober Saravia MD - 11/18/2011 11:48 AM COST COORDINATOR COORDINATOR documented in this encounter Miscellaneous Notes Brief Op Note - Hesham Madera MD - 10/20/2011 8:11 PM CST Post Operative Note Preoperative Diagnosis: ESRD, AVF outflow stenosis Postoperative Diagnosis: Same Procedure: Bovine Patch AVF Stenosis Surgeon: Rober Saravia MD Vice President Compliance: Hesham Madera MD Anesthesia: Local anesthesia with sedation EBL: 20ml Specimens: None Hesham Madera MD Surgery Resident Pager [phone] COORDINATOR Op Note - Robre Saravia MD - 10/20/2011 8:07 PM CST PREOPERATIVE DIAGNOSIS: Outflow stenosis, right upper arm radial to basilic transposition arteriovenous fistula. POSTOPERATIVE DIAGNOSIS: Outflow stenosis, right upper arm radial to basilic transposition arteriovenous fistula. PROCEDURES: 1. Mobilization of outflow stenotic area of right upper arm arteriovenous fistula. 2. Bovine patch angioplasty to stenotic area (4 cm in length). SURGEON: Rober Saravia MD BROADCAST FIELD SUPERVISOR: Hesham Madera MD [facility] [employer] Safety Engineer ANESTHESIA: Local with intravenous supplementation. PREOPERATIVE MEDICATIONS: Ancef 1 gm IV. INDICATIONS: Julio Cesar Sandhu is a 38-year-old patient who is dialyzing at the [facility] andhad a right upper arm transposition radial to basilic arteriovenous fistula placed 2 months ago. Thelarge hematoma in the upper arm developed after initial use of the fistula which is now resolved. However, a high-grade stenosis down to 2.1 mm is noted in the axillary area where the fistula goes fromthe superficial location to the normal anatomical location. It was felt that this was significantly affecting his fistula and that the patch angioplasty should be performed. The patient was found to have a potassium of 6.7 on admission to Same Day Surgery. He therefore had to undergo hemodialysis at the hospital via his right jugular tunneled catheter to bring his potassium down to 5 point to allow us to do surgical procedure. DESCRIPTION OF PROCEDURE: The patient was brought to operating room. Right arm and axilla were prepped and draped in the usual fashion. 1% lidocaine with bicarbonate was used for local field block anesthetic. VASCULAR EXPOSURE: A curvilinear incision was made along the course of the fistula in the axillary region. Dissection was carried down to identify the fistula which was markedly scarred into the surrounding tissue. The nerves were cautiously dissected free off the scarred in portion of the fistula andretracted medially. Some of the biceps muscle was also scarred into the stenotic area and these werealso dissected free. As we dissected deeper in the axilla, we found the completely normal outflow vein which measured over 7 mm in diameter and clinically close to 9 mm in diameter and completely free of disease. This was encircled with Silastic vessel loop. The inflow portion of the fistula measured at least 6 mm in diameter and was also dissected free and encircled. WRIST CEPHALIC VEIN EXPLORATION: We made an incision on his wrist over this cephalic vein. This clinically appeared to be of larger size. However, as we dissected free, was noted to be quite small, measuring less than 2 mm in diameter was not adequate for patch angioplasty on this scarred in vein. BOVINE PATCH ANGIOPLASTY: Intravenous heparin 3000 units were given. After 5 minutes, the vessel loops were sequentially tightened. An 11 blade was used to enter the axillary portion of the fistula andthis was extended toward the elbow. There was a significant narrowing noted likely due to the valve leaflet and perhaps exacerbated by the hematoma causing wall thickness. The inflow and outflow portions of the fistula easily accepted a 6 mm dilator. Heparinized saline solution was injected. A bovine patch angioplasty was selected and prepared. This was sewn to the venotomy with a running 6-0 Prolenesuture and loupe magnification. With release of the vessel loops, we had an excellent palpable pulseand thrill throughout the entire fistula with complete correction of the stenotic area. Our patch measured 4 cm in length with a maximum width of 6 mm. Good hemostasis was obtained. Both wounds were closed with interrupted 3-0 Vicryl deep and the skin was closed with 4-0 Monocryl in subcuticular fashion. Wounds were infiltrated with 0.5% Marcaine for postop analgesia. Steri-Strips, gauze and Kerlix rolls were applied. The patient tolerated the procedure well. ESTIMATED BLOOD LOSS: 20 mL. COMPLICATIONS: None. OPERATIVE FINDINGS: Extensive scar tissue evidence of intimal hyperplasia causing a significant stenosis at the axillary portion of the fistula. The remnant of the valve leaflet has been excised and bovine patch angioplasty placed over the area after mobilization of the vein. Size is excellent througho ut the entire fistula and this may be accessed at any time. ROBER SARAVIA MD [place]: [id number] Name: JULIO CESAR SANDHU Account: [id number] : 1965 Procedure Date: 10/20/2011 Document: [id number] COORDINATOR documented in this encounter Plan of Treatment Not on filedocumented as of this encounter Procedures Procedure Name Priority Date/Time Associated Comments Diagnosis GLUCOSE BY METER Routine 10/20/2011 8:16 PM Resul ts for this COST COORDINATOR procedure are i n the results section. GLUCOSE BY METER Routine 10/20/2011 6:46 PM Resul ts for this COST COORDINATOR procedure are i n the results section. CREATION, 10/20/2011 5:38 PM RENAL FAILURE ARTERIOVENOUS FISTULA, COST COORDINATOR UPPER EXTREMITY POTASSIUM Routine 10/20/2011 3:00 PM Results f or this COST COORDINATOR procedure are i n the results section. POTASSIUM STAT 10/20/2011 12:35 Results for this PM COST COORDINATOR procedure are i n the results section. GLUCOSE BY METER Routine 10/20/2011 11:40 Results for this AM COST COORDINATOR procedure are i n the results section. INR STAT 10/20/2011 11:40 Results for this AM COST COORDINATOR procedure are i n the results section. POTASSIUM STAT 10/20/2011 11:40 Results for this AM COST COORDINATOR procedure are i n the results section. CREATININE STAT 10/20/2011 11:40 Results for this AM COST COORDINATOR procedure are i n the results section. documented in this encounter Results Glucose by meter (10/20/2011 8:16 PM COST COORDINATOR) athologist Signature Glucose 77 60 - 99 POINT OF CARE mg/dL TEST, GLUCOSE Specimen Anatomical Collection Method Collection Time Receive d Time (Source) Location / / Volume Laterality 10/20/2011 8:16 PM 2 8:20 COST COORDINATOR PM COST COORDINATOR Rober DEAN - BEAKER POCT Performing Organization Address City/State/ZIP Code Phon e Number F[facility] POINT OF CARE TEST, GLUCOSE POINT OF CARE TEST, GLUCOSE Glucose by meter (10/20/2011 6:46 PM COST COORDINATOR) athologist Signature Glucose 80 60 - 99 POINT OF CARE mg/dL TEST, GLUCOSE Specimen Anatomical Collection Method Collection Time Receive d Time (Source) Location / / Volume Laterality 10/20/2011 6:46 PM 2 6:40 COST COORDINATOR AM COST COORDINATOR Rober DEAN - BEAKER POCT Performing Organization Address City/State/ZIP Code Phon e Number [facility] POINT OF CARE TEST, GLUCOSE POINT OF CARE TEST, GLUCOSE Potassium (10/20/2011 3:00 PM COST COORDINATOR) athologist Signature Potassium 5.1 3.4 - 5.3 [place] mmol/L [facility] Specimen Anatomical Collection Method Collection Time Receive d Time (Source) Location / / Volume Laterality 10/20/2011 3:00 PM 2 3:10 COST COORDINATOR PM COST COORDINATOR Rober Saravia MD LAB - BLOOD ORDERABLES Performing Organization Address City/[facility]/ZIP Code Phon e Number [facility] [address] [id number] [facility] (ABNORMAL) Potassium (10/20/2011 12:35 PM COST COORDINATOR) P athologist Signature Potassium 6.8 (HH) 3.4 - 5.3 [facility] mmol/L [facility] Comment: Critical Value called to and read back b y DR POOL IN SDS AT 1250 Specimen Anatomical Collection Method Collection Time Receive d Time (Source) Location / / Volume Laterality Blood specimen 10/20/2011 12:35 2 (specimen) PM COST COORDINATOR 12:36 PM COST COORDINATOR Rober Saravia MD LAB - BLOOD ORDERABLES Performing Organization Address City/State/ZIP Code Phon e Number [facility] [address] [place] [address] [facility] Glucose by meter (10/20/2011 11:40 AM COST COORDINATOR) athologist Signature Glucose 79 60 - 99 POINT OF CARE mg/dL TEST, GLUCOSE Specimen Anatomical Collection Method Collection Time Receive d Time (Source) Location / / Volume Laterality 10/20/2011 11:40 10/20/2011 AM COST COORDINATOR 12:05 PM COST COORDINATOR Rober Saravia MD LAB - BEAKER POCT Performing Organization Address City/State/ZIP Code Phon e Number [facility] POINT OF CARE TEST, GLUCOSE POINT OF CARE TEST, GLUCOSE (ABNORMAL) Creatinine (10/20/2011 11:40 AM COST COORDINATOR) [facility] gist Method Time Signature Creatinine 13.23 (H) 0.66 - [place] 1.25 mg/dL [facility] GFR Estimate 4 (L) >60 [place] mL/min/1.[address] LAB GFR Estimate If 5 (L) >60 [facility] [place] mL/min/1.[address] LAB Specimen Anatomical Collection Method Collection Time Receive d Time (Source) Location / / Volume Laterality Blood specimen 10/20/2011 11:40 2 (specimen) AM COST COORDINATOR 11:54 AM COST COORDINATOR Raúl Montes MD LAB - BLOOD ORDERABLES Performing Organization Address City/State/ZIP Code Phon e Number [facility] [address] [place] [address] [facility] (ABNORMAL) Potassium (10/20/2011 11:40 AM COST COORDINATOR) athologist Signature Potassium 6.7 (HH) 3.4 - 5.3 [place] mmol/L [facility] Comment: Critical Value called to and read back oct SDS 1222 Specimen Anatomical Collection Method Collection Time Receive d Time (Source) Location / / Volume Laterality Blood specimen 10/20/2011 11:40 2 (specimen) AM COST COORDINATOR 11:54 AM COST COORDINATOR Raúl Montes MD LAB - BLOOD ORDERABLES Performing Organization Address City/State/ZIP Code Phon e Number [facility] [address] [address] [facility] (ABNORMAL) INR (10/20/2011 11:40 AM COST COORDINATOR) athologist Signature INR 1.41 (H) 0.86 - 1.14 [facility] Specimen Anatomical Collection Method Collection Time Receive d Time (Source) Location / / Volume Laterality Blood specimen 10/20/2011 11:40 2 (specimen) AM COST COORDINATOR 11:54 AM COST COORDINATOR Raúl Montes MD LAB - BLOOD ORDERABLES Performing Organization Address City/State/ZIP Code Phon e Number [facility] [address] [place] [address] [facility] documented in this encounter Visit Diagnoses Not on filedocumented in this encounter Administered Medications Inactive Administered Medications - up to 3 most recent administrations Medication Order MAR Action Action Date Dose Rate Site BUPivacaine (MARCAINE) Given 10/20/2011 8:03 PM 30 mLs Operative injection 0.5% COST COORDINATOR Site/Surgical S ite PRN, Starting on Tue10/20/11 at 2002, Intra-procedure heparin 2,500 units in 250 Given 10/20/2011 7:57 PM 250 mLs Operative Site/Surgical mL 0.9% NaCl COST COORDINATOR Site PRN, Starting on Tue10/20/11 at 1956, Intra-procedure lidocaine 1% 20 mL + Given 10/20/2011 7:59 PM 18 mLs Operative Site/Surgical sodium bicarbonate 8.4% 4 COST COORDINATOR Site mL PRN, Starting on Tue10/20/11 at 195, Intra-procedure sodium chloride 0.9% Given 10/20/2011 6:16 PM 1,000 mLs Operative (bottle) irrigation COST COORDINATOR Site/Surgical S ite PRN, Starting on Tue10/20/11 at 6, Area to irrigate and instructions: ., Intra-procedure documented in this encounter Active and Recently Administered Medications Times are shown in COST COORDINATOR. PRN Medication Order 10/18/2011 10/19/2011 10/20/2011 BUPivacaine (MARCAINE) injection 0.5% (CANCELED) 2002 (Given - Provider: Rober Saravia MD) PRN, Starting Tue10/20/11 at 2002, Intra-procedure heparin 2,500 units in 250 mL 0.9% NaCl (CANCELED) 1956 (Given - Provider: Rober Saravia MD) PRN, Starting Tue10/20/11 at 1956, Intra-procedure lidocaine 1% 20 mL + sodium bicarbonate 8.4% 4 mL (CANCELED) 1958 (Given - Provider: Rober Saravia MD) PRN, Starting Tue10/20/11 at 1958, Intra-procedure sodium chloride 0.9% (bottle) irrigation (CANCELED) 1815 (Given - Provider: Rober Saravia MD) PRN, Starting Tue10/20/11 at 1815, Area to irrigate and instructions: ., Intra-procedure documented in this encounter Care Teams Lye Peel Operator Relationship Specialty Start Date End Date Preet Huff PCP - General 06/24/11 documented as of this encounter
--- OUTSIDE RECORDS SUMMARY | 2022-09-01 20:25 | XMS_ITS | Encounter Summary ---
:1965 Author Organization [place] Address [address] [place] [address] Care Team Providers Name Role Phone Preet Huff Primary Care Provider Reason for Visit Auth/Cert - Closed Specialty Diagnoses / Procedures Referred By Contact Refer red To Contact Surgery Diagnoses RENAL FAILURE Sh Periop Services Procedures CREATE GRAFT LOOP ARTERIOVENOUS LOWER EXTREMITY [address], [address] [place] [address] Phone: Referral ID Status Reason Start Date Expiration Date Visits Requ ested Visits Authorized [id number] Closed 1 1 Encounter Details Date Type Department Care Team Description 05/03/2012 Surgery [facility] Rober Saravia GR OIN LOOP GRAFT [facility] Della Oviedo MD WITH [facility] [address] [place] [address] [place] [address] [phone] Surgery Details Date/Time Status Location OR Service Patient Case Class Case Tr auma Class Type Case? 05/03/12 12:20 Posted OR OR M 40 General Surgery PM Admit Panel 1 Procedure LRB Anes Op Region Wound Class Commen ts RIGHT GROIN LOOP GRAFT Right General Leg I-Clean RI GHT GROIN LOOP GRAFT WITH [facility]ORAL WITH [facility] ARTERY ARTERY Surgeon Surgeon Role Service Panel Rober Saravia MD Primary General 1 Special Needs dialysis documented in this encounter Social History Tobacco Use Types Packs/Day Years Used Date Smoking Tobacco: Never Smokeless Tobacco: Never Alcohol Use Standard Drinks/Week Comments No 0 (1 standard drink = 0.6 oz pure alcoho l) Sex Assigned at Date Recorded Not on file documented as of this encounter Last Filed Vital Signs Vital Sign Reading Time Taken Comments Blood Pressure 125/66 05/03/2012 10:51 AM CDT Pulse - - Temperature 37.1 ??C (98.7 ??F) 05/03/2012 10:51 AM CDT Respiratory Rate 16 05/03/2012 10:51 AM CDT Oxygen Saturation 100% 05/03/2012 10:51 AM CDT Inhaled Oxygen Concentration - - Weight 71.6 kg (157 lb 12.8 oz) 05/03/2012 10:51 AM CDT Height 162.6 cm (5' 4) [...] was ready for discharge back to his snf on the first postoperative day with no complications. DISCHARGE MEDICATIONS: 1. Amlodipine 10 mg daily. 2. Lisinopril 40 mg daily. 3. Metoprolol 50 mg daily. 4. Lactulose daily. 5. Calcium acetate 667 mg t.i.d. 6. Sevelamer 800 mg daily. 7. Iron sulfate 325 mg daily. 8. [place] p.r.n. pain. 9. Zocor 40 mg at [...] PLAN: The patient will return to his snf. He will continue with his maintenance hemodialysis.We [...] Name: JULIO CESAR SANDHU MRN: [id number] Account: [id number] : 1965 Admit Date: Discharge Date: Document: [id number] cc: Preet Huff MD documented in this encounter Discharge Instructions AttachmentsThe following attachments cannot be sent through Care Everywhere. DIALYSIS SHUNT (FISTULA) BLEEDINGdocumented in this encounter Medications at Time of Discharge Medication Sig Dispensed Refills Start Date End Date b nohmgeh-M-lcfnv acid Take 1 capsule by 0 03/04/2016 [...] - 05/18/2012 8:34 AM CDT Alem Hale [facility] - 05/04/2012 4:31 PM CDT SW D: Patient is discharging back to his home in [place] today. [facility] transport will transport patient home ([phone]). I spoke with patient's relative Aunxavier Renee [...] run. Next HD 05/06, at [facility], as usual. Interval History: no complaints and [...] amLODIPine 10 mg Oral Daily ??? B hydjoqh-M-koldn acid 1 capsule Oral Daily with supper [...] found for this basename: PH, pharterial, PO2, OS3ctgjqrub, sat, PCO2, UFZ3cmypguof, HCO3,baseexcess, leila, beb Steven Styles MD (p [phone]) Duncan Gutierrez MD - 05/04/2012 9:08 AM CDT Surgery Progress Note POD #1 s/p right groin loop graft S: No complaints O: AFVSS Incision C/D/I. No hematoma. Non-tender A/P: doing well. HD this am then d/c home. Duncan Gutierrez MD, MD [facility] [place], G[place] Pager: [phone], after 5 pm and on weekends please use answering service Rober Saravia MD - 05/04/2012 8:42 AM CDT Surgery Progress Note POD #1 S:No complaints. Minimal pain. Good appetite. O:Afebrile VSS Good pulse and thrill old upper arm AVF and new thigh access. Wd=A A/P: Doing well. Home today after dialysis. Will continue to use right upper arm AVF. Wm Rnai HARPER documented in this encounter H&P Notes Rober Saravia MD - 05/08/2012 4:13 PM CDT documented in this encounter Procedure Notes Heidi Schuster RN - 05/04/2012 1:20 PM CDT Dialysis run x 3.5hrs via JACQUELINE with 15G needles with BFR 400CC on K2bath then K3 upyfs5mh from pre sent K level noted PRE WT 71.5 POST 69KG hepatitis Status WNL Pre and post report with ANURAG MCKEONis/it project manager review and EDU done with pt Pt [...] well known to our group. Dialyzes at [facility] unit under Dr. Jack's care. Needs usual dialysis run today, after successful access surgery (femoral loop graft placement) yesterday. Pt stable this AM; right arm AVF patent. Will arrange for pt to run with usual orders. Will add noteduring dialysis. Can likely be discharged post-run, if he remains stable. Thanks, Steven Styles MD (p [phone]) documented in this encounter OR Notes OR Anesthesia - Rober Saravia MD - 05/08/2012 2:30 PM CDT documented in this encounter Miscellaneous Notes Plan of Care - Sb Davila RN - 05/04/2012 5:28 PM CDT Problem: Perioperative [...] Matta MD - 05/04/2012 9:50 AM CDT [facility] Physician Advisor Review Date(s) Reviewed: May [...] Chapter 6, section 70.4. Lauren Matta MD, [facility] [place] Hospitalist seasonal customer service associate [facility] [phone] Plan of Care - Cristiana Vizcarra RN [...] Saravia MD - 05/03/2012 4:12 PM CDT Cushion Maker: Duncan Gutierrez MD ([facility] [place] Surgery Resident) POSTOPERATIVE DIAGNOSIS: Failing right upper [...] MT: [id number] Name: JULIO CESAR SANDHU Account: [id number] : 1965 Procedure Date: 05/03/2012 Document: [id number] cc: [facility] DUNCAN GUTIERREZ MD documented in this encounter Plan [...] athologist Signature Potassium 4.0 3.4 - 5.3 [place] mmol/L [facility] Specimen Anatomical Collection Method Collection Time Receive d Time (Source) Location / / Volume Laterality Blood specimen 05/04/2012 11:20 2 (specimen) AM CDT 11:46 AM CDT Steven Styles MD LAB - BLOOD ORDERABLES Performing Organization Address City/State/ZIP Code Phon e Number [facility] [address] [place] [address] [facility] (ABNORMAL) Glucose by meter (05/04/2012 6:50 AM CDT) P athologist Signature Glucose 221 (H) 60 - 99 POINT OF CARE mg/dL TEST, GLUCOSE Specimen Anatomical Collection Method Collection Time Receive d Time (Source) Location / / Volume Laterality 05/04/2012 6:50 AM 2 7:00 CDT AM CDT Rober DEAN - DAVID POCT Performing Organization Address [...] 05/04/2012 1:55 AM CDT AM CDT Rober DEAN - BEXIANG POCT Performing [...] PM 2 CDT 11:35 PM CDT Rober DEAN - DAVID POCT Performing Organization Address [...] PM 2 CDT 12:35 PM CDT Rober Saravia MD LAB - [...] 1:55 CDT PM CDT Rober DEAN - DAVID POCT Performing Organization Address City/State/[facility] Code Phon e Number [facility] POINT OF CARE TEST, GLUCOSE POINT OF CARE TEST, GLUCOSE Potassium (05/03/2012 11:02 AM CDT) P athologist Signature Potassium 4.3 3.4 - 5.3 [facility] mmol/L [facility] Specimen Anatomical Collection Method Collection Time Receive d Time (Source) Location / / Volume Laterality Blood specimen 05/03/2012 11:02 2 (specimen) AM CDT 11:12 AM CDT Yun Desai MD LAB - BLOOD ORDERABLES Performing Organization Address City/State/ZIP Code Phon e Number [facility] [address] [phone] [facility] (ABNORMAL) Creatinine (05/03/2012 11:02 AM CDT) Analysis Performed At Patho logist Time Signature Creatinine 9.62 (H) 0.66 - [place] 1.25 mg/dL [facility] GFR Estimate 6 (L) >60 [place] mL/min/1.[address] LAB GFR Estimate If 7 (L) >60 [place] mL/min/1.[address] LAB Specimen Anatomical Collection Method Collection Time Receive d Time (Source) Location / / Volume Laterality Blood specimen 05/03/2012 11:02 2 (specimen) AM CDT 11:12 AM CDT Yun Desai MD LAB - BLOOD ORDERABLES Performing Organization Address City/State/ZIP Code Phon e Number [facility] [address] [phone] [facility] (ABNORMAL) Hemoglobin (05/03/2012 11:02 AM CDT) P athologist Signature Hemoglobin 9.9 (L) 13.3 - 17.7 [place] g/dL [facility] Specimen Anatomical Collection Method Collection Time Receive d Time (Source) Location / / Volume Laterality Blood specimen 05/03/2012 11:02 2 (specimen) AM CDT 11:12 AM CDT Yun eDsai MD LAB - BLOOD ORDERABLES Performing Organization Address City/State/ZIP Code Phon e Number [facility] [address] [phone] [facility] documented in this encounter Visit Diagnoses Not on filedocumented in this encounter Administered Medications Inactive Administered Medications - up to 3 most recent administrations Medication Order MAR Action Action Date Dose Rate Site bupivacaine (MARCAINE) Given 05/03/2012 2:30 PM 30 mLs Operative injection 0.5% CDT Site/Surgical S ite PRN, Starting on Tue05/03/12 at 1430, Intra-procedure heparin 2,500 units in Given 05/03/2012 2:30 PM 2,500 Units Operative 250 mL 0.9% NaCl CDT Site/Surgical S ite PRN, Starting on Tue05/03/12 at 1430, Intra-procedure heparin 5,000 units in Given 05/03/2012 2:33 PM 500 mLs Operative Site/Surgical lactated ringers soln CDT Sit e 1,000mL PRN, Starting on Tue05/03/12 at 1433, Intra-procedure documented in this encounter Active and Recently Administered Medications Times are shown in CDT. Scheduled Medication Order 05/02/2012 05/03/2012 05/04/2012 amLODIPine (NORVASC) tablet 10 mg (CANCELED) 2000 (Given - Provider: Lizabeth Hopper RN) 08 (Given - Provider: Negrita Alvarez RN) 10 mg, Oral, DAILY, First dose on Tue05/03/12 at 1800 B kbelxym-W-exmkq acid (NEPHROCAPS) capsule 1 mg (CANCELED) 2000 (Given - Provider: Lizabeth Hopper RN) 1700 (Given - Provider: Sb Davila, LINDA) 1 capsule = 1 mg, Oral, DAILY WITH SUPPER, First dose on 04/10 at 1830 bisacodyl (DULCOLAX) EC tablet 5 mg (CANCELED) 2233 (Given - Provider: Lizabeth Hopper RN) 0841 (Given - Provider: Negrita Alvarez, LINDA) 5 mg, Oral, 2 TIMES DAILY, First dose on Tue05/03/12 at 2100, DO NOT CRUSH. calcium acetate (PHOSLO) capsule 667 mg (CANCELED) 2001 (Given - Provider: Lizabeth Hopper RN) 0841 (Given - Provider: Negrita Alvarez, LINDA)1454 (Not Given - Provider: Negrita Alvarez, LINDA - Reason: Transfer to a procedural area)1700 (Given - Provider: Sb Davila, LINDA) 667 mg, Oral, 3 TIMES DAILY WITH MEALS, First dose on Tue05/03/12 at 1800, Best if given with meals. Take with meals. ceFAZolin (ANCEF) 1 g vial to attach to IVPB (COMPLETED) 1207 (Handoff - Provider: Rocio Hood, LINDA)1355 (Given - Provider: Carter Pena APRN ORTHO RN) 1 g, Intravenous, for 30 Minutes, PRE-OP /PRE-PROCEDURE, For 1 dose, Give first dose within 1 hour PRIOR to incision., Pre-procedure doxercalciferol (HECTOROL) injection 1.5 mcg (COMPLETED) 1015 (Due)1245 (Given - Provider: Heidi Schuster, RN) 1.5 mcg, Intravenous, ONCE IN DIALYSIS, Padmaja 05/04/12 at 1015, For 1 dose epoetin mauricio (EPOGEN,PROCRIT) injection 4,400 Units (COMPLETED) 1015 (Due)1247 (Given - Provider: Heidi Schuster, RN) 4,400 Units, Intravenous, ONCE IN DIALYS IS, [place] 05/04/12 at 1015, For 1 dose, *Refrigerated. ferrous sulfate tablet 325 mg (CANCELED) 840 (Given - Provider: Negrita Alvarez, LINDA) 325 mg, Oral, DAILY WITH BREAKFAST, Firs t dose on [place]ma[place] 05/04/12 at 0900, Absorbed best on an empty stomach. If stomach upset occurs, can take with meals. folic acid (FOLVITE) tablet 1 mg (CANCELED) 2001 (Given - Provider: Lizabeth Hopper, LINDA) 0841 (Given - Provider: Negrita Alvarez, RN) 1 mg, Oral, DAILY, First dose on Tue05/03/12 at 1800 lactulose (CHRONULAC) solution 20 g (CANCELED) 2004 (Given - Provider: Lizabeth Hopper, LINDA) 0841 (Given - Provider: Negrita Alvarez, RN) 20 g, Oral, DAILY, First dose on Tue05/03/12 at 1800 lisinopril (PRINIVIL,ZESTRIL) tablet 40 mg (CANCELED) 2000 (Given - Provider: Lizabeth Hopper, LINDA) 0841 (Given - Provider: Negrita Alvarez, LINDA) 40 mg, Oral, DAILY, First dose on 03/10 at 1800, +++HOLD ON DAYS OF DIALYSIS++++ metoprolol (LOPRESSOR) tablet 50 mg (CANCELED) 2233 (Given - Provider: Lizabeth Hopper RN) 08 (Given - Provider: Negrita Alvarez, LINDA) 50 mg, Oral, 2 TIMES DAILY, First dose on Tue05/03/12 at 2100 sevelamer (RENVELA) tablet 800 mg (CANCELED) 2003 (Given - Provider: Lizabeth Hopper RN) 840 (Given - Provider: Negrita Alvarez, LINDA) 800 [...] mg (CANCELED) 0401 (Given - Provider: Cristiana Vizcarra RN) 325 mg, Oral, EVERY 4 HOURS PRN, mild pa in, fever, Starting Padmaja 05/04/12 at 0334, For splitting from Percocet bupivacaine (MARCAINE) injection 0.5% (CANCELED) 1430 (Given - Provider: Rober Saravia MD) PRN, Starting Tue05/03/12 at 1430, Intra-procedure heparin 2,500 units in 250 mL 0.9% NaCl (CANCELED) 1430 (Given - Provider: Rober Saravia MD) PRN, Starting Tue05/03/12 at 1430, Intra-procedure heparin 5,000 units in lactated ringers soln 1,000mL (CANCEL ED) 1433 (Given - Provider: Rober Saravia MD - Comment: 5000 units Heparin/Lactated Ringers 500 ml Irrigate cadaver femoral artery) PRN, Starting 05/03/12 at 1433, Intra-procedure documented in this encounter Care Teams Wireless Cellular Technician Relationship Specialty Start Date End Date Preet Huff PCP - General 06/24/11 documented as of this encounter
--- OUTSIDE RECORDS SUMMARY | 2022-09-01 20:25 | XMS_ITS | Encounter Summary ---
:1965 Author Organization [facility] Address [address] [place] [address]. [place] [address] Care Team Providers Name Role Phone Preet Huff Primary Care Provider Encounter Details Date Type Department Care Team Description 07/31/2012 Hospital Encounter [facility] Michele Fuentes [facility] [address] MD Jared [address] [facility] [place] [facility] [place] [address] CONS [phone] [facility] [address] [place], [place] [id number] (Wo rk) Social History Tobacco Use Types Packs/Day Years Used Date Smoking Tobacco: Never Smokeless Tobacco: Never Alcohol Use Standard Drinks/Week Comments No 0 (1 standard drink = 0.6 oz pure alcoho l) Sex Assigned at Date Recorded Not on file documented as of this encounter Last Filed Vital Signs Vital Sign Reading Time Taken Comments Blood Pressure 136/78 07/31/2012 2:00 PM CDT Pulse 56 07/31/2012 2:00 PM CDT Temperature 36.2 ??C (97.2 ??F) 07/31/2012 10:29 AM CDT Respiratory Rate 20 07/31/2012 2:00 PM CDT Oxygen Saturation 100% 07/31/2012 1:27 PM CDT Inhaled Oxygen Concentration - - Weight 74.8 kg (165 lb) 07/31/2012 10:29 AM CDT Height 162.6 cm (5' 4) 07/31/2012 10:29 AM CDT Body Mass Index 28.32 07/31/2012 10:29 AM CDT documented in this encounter Medications at Time of Discharge Medication Sig Dispensed Refills Start Date End Date b iyxqkfv-M-gjlpt acid Take 1 capsule by 0 03/04/2016 [...] documented as of this encounter Progress Notes Kalie Miner RN - 07/31/2012 2:00 PM CDT Pt up and dressed getting into wheelchair and right groin lower incision bled. Pressure held briefly, back in bed. IR here and redressed. Site D/I. Will observe flat for 10 minutes and then attempt to get up again. Pt denies pain. Isis Parikh RN - 07/31/2012 1:29 PM CDT Return to 11 at 1320. Dressing x2 to right upper thigh. CDI. Denies pain. Requesting to eat. Transport called by pt's aunt, will go to dialysis today. VSS Tyrel Gonzalez RN - 07/31/2012 11:24 AM CDT Interventional Radiology Intra-procedural Nursing Note Patient Name: Julio Cesar Victor Today's Date: July 31, 2012 Start Time: 1120 End of procedure time: 1250 Procedure: Right Lower Extremity Dialysis Fistulagram with Thrombectomy Report given to: Care [address]/[facility] Time pt departs: 1310 1120 - Procedure discussed with patient per Dr Fuentes; consented. To IR 2 for right lower extremity dialysis fistulagram with thrombectomy; fistula is clotted. Patient has abandoned fistula in right upper arm. Right Thigh prepped with clipper and Chloraprep (CHG 2%); draped as usual in supine position. 1250 - Procedure completed; tolerated well. Will remove venous and arterial dialysis sheaths. 1305 - Hemostasis achieved at sheath sites. No hematoma. Quick-clot/Tegaderm dressings on both sites. Report called to [facility]. To Care Suites for recovery. Tyrel Gonzalez RN Isis Parikh RN - 07/31/2012 10:49 AM CDT Pt has 2 fistulas. One in right upper arm and another in right groin site. Last dialysis was on . Attempted on Tuesday but was unable to run. Groin site fistula is the one being used at this time. documented in this encounter H&P Notes OWojciech Ramos MD - 08/01/2012 2:52 PM CDT HISTORY AND PHYSICAL AND DISCHARGE SUMMARY HISTORY OF PRESENT ILLNESS: Julio Cesar Victor is a 47-year-old gentleman with known end-stage renal disease who dialyzes on a regular basis Tuesday, , Tuesday at the [facility]. He has had some issues with his access for dialysis over the years. Dr. Saravia has been his vascular surgeon and he has had recently the termination of the use of his right upper arm fistula and subsequent conversion to a previously placed right groin access. This is a cadaver artery which we began cannulating approximately 2 weeks ago. Access clotted apparently over the weekend. He presented yesterday for a declot procedure which was done without complication. Arrangements were made and the patient was transferred back to [facility] yesterday evening. By the time he arrived that access had reclotted. Arrangements were then made for his re-evaluation and intervention performed today by Dr. Klein at which time the access was declotted, the venous anastomosis angioplastied and a stent placed. This was again uncomplicated. Based on his complicated access history, need for semiurgent dialysis based on previous dialysis 5 days ago and long travel time, he will be admitted under observation status for dialysis. He is awake, alert and appears to be at his baseline without specific complaints. PAST MEDICAL HISTORY: Reflux, hypertension, blindness, end-stage renal disease, diabetes, history ofsleep apnea, history of peritonitis, history of deep vein thrombosis, anemia. ALLERGIES: Aspirin. HOME MEDICATIONS: Were reviewed. SOCIAL HISTORY: Lives with his aunt. FAMILY HISTORY: Noncontributory. REVIEW OF SYSTEMS: Noncontributory. PHYSICAL EXAMINATION: GENERAL: Hemodynamically stable. Appropriate, at baseline. VITAL SIGNS: Blood pressure in the range of 130-160 systolic over 90-100 diastolic. Rhythm is sinus,rate is 60-70, respiratory rate in mid teens, sats are adequate on room air. HEENT: Unremarkable. CHEST: Clear. CARDIOVASCULAR: Regular. ABDOMEN: Soft. EXTREMITIES: Warm without significant edema, but bilateral edema is present. NEUROLOGIC: Grossly nonfocal. LABORATORY DATA: Potassium today was 4.1. Hemoglobin 9.5. IMPRESSION: 1. End-stage renal disease. 2. Clotted dialysis access. 3. Hypertension. PLAN: 1. Admit under observation status for semiurgent dialysis, given history as eluded to above. 2. We will discharge subsequent to dialysis and he will return to his home in [place], [place]. 3. His next dialysis will be an outpatient on at the [facility]. 4. This documents both his admission history and physical as well as his discharge history and physical. 5. We will add Plavix to his medications per direction of Vascular Surgery. Wojciech DE SOUZA MD MT: lg Name: JULIO CESAR VICTOR MRN: [id number] Account: [id number] : 1965 Admitted: [id number] Document: [id number] documented in this encounter Plan of Treatment Not on filedocumented as of this encounter Visit Diagnoses Not on filedocumented in this encounter Administered Medications Inactive Administered Medications - up to 3 most recent administrations Medication Order MAR Action Action Date Dose Rate Site alteplase (Activase) 2 MG injection Starting on Tue07/31/12 at 1107, For 1 dose, St karina Gonzalez: cabinet override alteplase (Activase) injection 2 mg Given by Other 07/31/2012 11:38 AM CDT 4 mg 2 mg, Other, ONCE PRN, Right Dialysis Fistula Declot , Starting on Tue07/31/12 at 1110, For 1 dose, IR Intra-procedure as needed to declot right lower extremity dialysis fistula, IR Intra-procedure fentaNYL (SUBLIMAZE) 0.05 MG/ML injectio n Starting on Tue07/31/12 at 1035, For 1 dose, Dianne Olson: cabinet override fentaNYL (SUBLIMAZE) injection 25-50 mcg Given 07/31/2012 12:17 PM CDT 25 mcg 25-50 mcg, Intravenous, EVERY 5 MIN PRN, severe pain (7-10), If inadequate response may repeat 25 mcg IV slowly Q 5 min PRN severe pain, Administer over 2 Minutes, Starting on Tue07/31/12 at 1109, Doses can be exceeded under direct oversight of patient by physician., IR Intra-procedure Given 07/31/2012 11:44 AM CDT 25 mcg Given 07/31/2012 11:20 AM CDT 50 mcg iopamidol (ISOVUE-300) IV solution 61% 1 00 mL Given 07/31/2012 1:07 PM CDT 77 mLs 100 mL, Intravenous, ONCE, On Tue07/31/12 at 1130, For 1 dose, IR Intra-procedure lidocaine (PF) (XYLOCAINE) 1 % Given by Other 07/31/2012 11:42 AM CDT 1 mL injection 30 mL 30 mL, Subcutaneous, ONCE PRN, for local anesthetic.?When verbally ordered by prescriber during the procedure., Starting on Tue07/31/12 at 1109, For 1 dose, Dose to be divided into smaller volumes appropriate for the procedure., IR Intra-procedure Given by Other 07/31/2012 11:32 AM CDT 1 mL midazolam (VERSED) 1 MG/ML injection Starting on Tue07/31/12 at 1035, For 1 dose, Dianne Olson: margaret overrbishop midazolam (VERSED) injection 0.5-1 mg Given 07/31/2012 12:18 PM CDT 0.5 mg 0.5-1 mg, Intravenous, Administer over 1 Minutes, EVERY 4 MIN PRN, sedation, If inadequate response may repeat 0.5 mg IV slowly Q 4 minutes PRN sedation until desired response., Starting on Tue07/31/12 at 1109, Doses can be exceeded under direct oversight of patient by physician., IR Intra-procedure Given 07/31/2012 11:44 AM CDT 0.5 mg Given 07/31/2012 11:21 AM CDT 1 mg documented in this encounter Active and Recently Administered Medications Times are shown in CDT. Scheduled Medication Order 07/29/2012 07/30/2012 07/31/2012 iopamidol (ISOVUE-300) IV solution 61% 100 mL (COMPLETED) 1307 (Given - Provider: Mackenzie Thomas) 100 mL, Intravenous, ONCE, On Tue at 1130, For 1 dose, IR Intra-procedure PRN Medication Order 07/29/2012 07/30/2012 07/31/2012 alteplase (Activase) injection 2 mg (COMPLETED) 1138 (Given by Other - Provider: Tyrel Gonzalez RN - Comment: IR Intra-procedure per Dr Fuentes) 2 mg, Other, ONCE PRN, Right Dialysis Fi stula Declot , Starting on Tue07/31/12 at 1110, For 1 dose, IR Intra-procedure as needed to declot right lower extremity dialysis fistula, IR Intra-procedure fentaNYL (SUBLIMAZE) injection 25-50 mcg (CANCELED) 1120 (Given - Provider: Tyrel Gonzalez RN)1144 (Given - Provider: Tyrel Gonzalez RN)1217 (Given - Provider: Tyrel Gonzalez RN) 25-50 mcg, Intravenous, EVERY 5 MIN PRN, severe pain (7-10), If inadequate response may repeat 25 mcg IV slowly Q 5 min PRN severe pain, Administer over 2 Minutes, Starting on Tue07/31/12 at 1109, Dose s can be exceeded under direct oversight of patient by physician., IR Intra-procedure lidocaine (PF) (XYLOCAINE) 1 % injection 30 mL (COMPLETED) 1132 (Given by Other - Provider: Tyrel Gonzalez RN - Comment: IR Intra-procedure per Dr Fuentes)1142 (Given by Other - Provider: Tyrel Gonzalez RN - Comment: IR Intra- procedure per Dr Fuentes; second dialysis fistula sheath placement) 30 mL, Subcutaneous, ONCE PRN, for local anesthetic.?When verbally ordered by prescriber during the procedure., Starting on Tue07/31/12 at 1109, For 1 dose, Dose to be divided into smaller volumes a ppropriate for the procedure., IR Intra-procedure midazolam (VERSED) injection 0.5-1 mg (CANCELED) 1121 (Given - Provider: Tyrel Gonzalez RN)1144 (Given - Provider: Tyrel Gonzalez, LINDA)1218 (Given - Provider: Tyrel Gonzalez RN) 0.5-1 mg, Intravenous, Administer over 1 Minutes, EVERY 4 MIN PRN, sedation, If inadequate response may repeat 0.5 mg IV slowly Q 4 minutes PRN sedation until desired response., Starting on Tue07/31/12 at 1109, Doses can be exceeded under di rect oversight of patient by physician., IR Intra-procedure documented in this encounter Care Teams Psychometric Examiner Relationship Specialty Start Date End Date Preet Huff PCP - General 06/24/11 documented as of this encounter
--- OUTSIDE RECORDS SUMMARY | 2022-09-01 20:25 | XMS_ITS | Encounter Summary ---
:1965 Author Organization [place] Address [facility] [place] [address] Care Team Providers Name Role Phone Preet Huff Primary Care Provider Encounter Details Date Type Department Care Team Description 04/24/2012 Hospital Encounter [facility] (H) Suites [facility] [address] [place] [address] [facility] [place], [place] [address] [facility] [id number] [address] [place] [address] Social History Tobacco Use Types Packs/Day Years Used Date Smoking Tobacco: Never Alcohol Use Standard Drinks/Week Comments No 0 (1 standard drink = 0.6 oz pure alcoho l) Sex Assigned at Date Recorded Not on file documented as of this encounter Last Filed Vital Signs Vital Sign Reading Time Taken Comments Blood Pressure 165/90 04/24/2012 4:50 PM CDT Pulse 71 04/24/2012 4:50 PM CDT Temperature 37 ??C (98.6 ??F) 04/24/2012 11:26 AM CDT Respiratory Rate 16 04/24/2012 4:50 PM CDT Oxygen Saturation 100% 04/24/2012 4:50 PM CDT Inhaled Oxygen Concentration - - Weight 72.6 kg (160 lb) 04/24/2012 11:26 AM CDT Height 162.6 cm (5' 4) 04/24/2012 11:26 AM CDT Body Mass Index 27.46 04/24/2012 11:26 AM CDT documented in this encounter Medications at Time of Discharge Medication Sig Dispensed Refills Start Date End Date b ivbpuug-U-kilsu acid Take 1 capsule by 0 03/04/2016 [...] metoprolol (LOPRESSOR) 50 Take 100 mg by 0 06/19/2013 MG tablet mouth 2 times daily. 50mg tabs take 2 tabs bid per [facility] simvastatin (ZOCOR) 40 MG Take 40 mg by mouth 0 12/16/2017 tablet every evening amLODIPine (NORVASC) 10 MG Take 10 mg by mouth 0 07/31/2012 tablet daily. Cholecalciferol (VITAMIN D Take by mouth. 0 05/02/2012 PO) FOLIC ACID PO Take by mouth. 0 012 hydrocodone-acetaminophen Take 1 tablet by 20 tablet 0 10/1005/02/2012 5-325 MG per mouth every 6 hours tabletIndications: A-V as needed for pain. fistula (H) documented as of this encounter Progress Notes Isis Parikh RN - 04/24/2012 4:17 PM CDT Return to 9 at 1600. Alert, requesting food. Tray and juice given. Hypertensive as baseline. Denies pain. Dressing to right upper arm intact x2 CDI. Aunt, career development facilitator here, has called for ride and ptwill go to Dialysis in [place]. Mona MCKEON in has stated she called report to dialysis center.Dr Omlie her to see pt briefly. D/c instructions given to pt and family. Carolyn Garcia - 04/24/2012 3:00 PM CDT Interventional Radiology Intra-procedural Nursing Note Patient Name: Julio Cesar Victor Today's Date: April 24, 2012 Start Time: 1449 End of procedure time: 1532 Procedure: right arm fistulagram with angioplasty Report given to: Care suites Time pt departs: *1610 Actuarial Science Professor: 1450 - pt prepped and draped. Dr Olmstead into begin procedure. 1532 - Procedure finishtime, pt brigida well. Sheaths removed - pressure held. Report called to [facility] Other Notes: Carolyn Garcia Isis Parikh RN - 04/24/2012 11:43 AM CDT Dialysis in [facility], last done on last week. Attempted to have dialysis on Tuesday but unable to run at all. Pt sleepy, responds slowly to questions, Aunt states this is his normal affect. documented in this encounter H&P Notes Tom Olmstead MD - 05/03/2012 12:31 PM CDT documented in this encounter Procedure Notes Tom Olmstead MD - 04/24/2012 3:47 PM CDT RUE fistulagram with severe outflow stenosis treated up to 6 mm, as well as inflow stenosis treated to 5 mm. Chronic central occlusion, unable to cross. Able to return to dialysis as previously scheduled. documented in this encounter Consult Notes Rober Buenrostro MD - 04/24/2012 4:51 PM CDT VASCULAR SURGICAL CONSULTATION REQUESTING PHYSICIAN: Rell Holman MD of the Nephrology Department CHIEF COMPLAINT: Poorly functional right upper arm arteriovenous fistula. HISTORY OF PRESENT ILLNESS: Julio Cesar Victor is a 47-year-old patient with mental retardation whois on chronic hemodialysis at the [facility] q. Ynxzbz-Lfuowsorx-Rxtktq. Prior evaluation revealed very small upper arm veins. He had a right jugular tunneled catheter from a long period of time before we were able to finally create a transposition right upper arm brachial-basilic arteriovenous fistula as a second stage procedure. The patient has had some complications with hematomas and we had been following a stenosis in the mid upper arm. Dialysis is becoming worse and he comes today to [facility] for fistulogram by Dr. Tom Olmstead, Interventional Radiology. This was accomplished with angioplasty of the fistula and I was asked to see the patient again in vascular surgical consultation for further planning. The patient was examined following the procedure in the Care Suites with his aunt present who is with him with all his visits. The patient is in no acute distress, afebrile, vital signs stable. He talks very little, which is his baseline. He appears to have more swelling in his face and upper extremities than I have noticed in the past and this was confirmed by his aunt. He has strong pulse within the right upper arm fistula with no bleeding from the angioplasty sites. He has scar tissue in the right shoulder from the previous right jugular tunneled catheters. +3 femoral-dorsalis pedis-posterior tibial pulses noted bilaterally with thin legs. I reviewed the fistulogram with the patient and his aunt. This did reveal an area of significant stenosis where the hematoma had been, which was successfully angioplastied and also mild stenosis at theinflow which was also angioplastied. The brachial artery was widely patent as is the anastomosis. 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 This is beyond the confluence of the left subclavian innominate system. There are multiple collaterals going around this relatively small. Dr. Olmstead was unable to pass a wire through thischronic occlusion. I did use a bedside ultrasound and looked at the greater saphenous vein in both thigh areas and these were noted to be no more than 2 mm in diameter. IMPRESSION: Successful angioplasty, right upper arm brachial to basilic transposition arteriovenous fistula. However, patient has evidence of significant central venous stenosis, which appears to be quite chronic in nature, which could explain the increased swelling as noted in his upper extremities with the patent fistula high flow into the area. It is unclear how long the angioplasties will work onthe fistula, but with the central venous stenosis eventually, failure is going to occur and the efficacy of dialysis may be decreasing. I, therefore, think that we need to plan at this time for another access site which obviously would need to be his lower extremities. I think we should consider placing a loop graft in his thigh. Greater saphenous vein is too small to use a conduit. We would discuss the possibility of using a PTFE type graft, which has a slightly higher risk of infection and development of stenoses versus a cadavericsuperficial femoral artery. The latter has some advantages in my opinion with a good size, less chance of minimal hyperplasia outflow stenosis due to compliance and decreased risk of infection comparedto the artificial PTFE type grafts. We will discuss this. I have discussed this with the patient's aunt and explained my reasoning of placing this in the verynear future while his upper arm fistula is still functional planning for the time when it no longer will be usable. If this should clot off, we would be forced to place a groin tunneled catheter, whichhas a much higher risk of infection or other complications since the central vein stenosis would notallow placement of an upper extremity access. ROBER BUENROSTRO MD MT: Name: JULIO CESAR VICTOR Account: [id number] : 1965 Consult Date: 04/24/2012 Document: [id number] cc: [facility] Mason MD documented in this encounter Plan of Treatment Scheduled Orders Name Type Priority Associated Diagnoses Order S chedule X-ray Fistulogram Imaging Routine One time i maging for 1 Occurrences sta rting 04/24/2012 unti l 04/24/2012 documented as of this encounter Procedures Procedure Name Priority Date/Time Associated Comments Diagnosis IR DIALYSIS Routine 04/24/2012 5:20 PM ESRF (end stage Result s for this FISTULOGRAM RIGHT CDT renal failure) (H) proc edure are in the results section. documented in this encounter Results INT dialysis shuntogram right (04/24/2012 5:20 PM CDT) Anatomical Region Laterality Modality Upper Extremity Radio Fluoroscopy Specimen (Source) Anatomical Collection Method Collection Time Re ceived Time Location / / Volume Laterality 04/24/2012 5:20 PM CDT Impressions 04/25/2012 10:43 AM CDT INTERVENTIONAL DIALYSIS SHUNTOGRAM RIGHT April 24, 2012 at 1720 hours HISTORY: A 47-year-old male with chronic renal failure. The patient has a right upper extremity fistula, wit h recent infiltration. Request made to evaluate the fistula. TECHNIQUE: The patient was brought to [facility] interventional radiology department and informed consent obtained . The patient was placed supine on the fluoroscopy table. Skin ov erlying the right upper extremity was prepped and draped in nelson dard sterile fashion. A slight thrill was palpated, though fairly weak, therefore ultrasound used for visualization during both antegrade and retrograde punctures. A total of 1% lidocaine was used for local anest hesia. Micropuncture kit used to access the fistula. Ultrasound images stored. 6 Sammarinese sheaths were placed both in antegrade and retrograde directions throughout the procedure. Venogram performed from the l evel of the arteriovenous anastomosis to the right atrium. Severe segmental stenosis noted in the outflow segment, successfully treate d with 6 mm balloon angioplasty. Moderate to severe fairly l pepito segment inflow stenosis noted at the arteriovenous anastomosis a nd extending for length of approximately 7 cm, successfully treated with 5 mm balloon angioplasty. JB1 catheter was then advan yue centrally to the proximal superior vena cava where venogram perfor med. Chronic occlusion is noted at the subclavian vein just beyond the junction of the brachiocephalic veins. With a Glidewire and JB1 catheter, an attempt was made to cross the chronic occlusion, though unsuccessful. Multiple collaterals noted throughout the right u pper extremity. Completion venogram performed demonstrating patency and angioplasty locations. Both sheaths were removed and hemostasis achieved with manual compression. Sedation: 1.5 mg intravenous Versed, 75 mcg intravenous fentanyl. Sedation time: 40 minutes. Please note the above medications were a dministered by the interventional radiologist staff under m y direct supervision. The patient's vital signs were monitored and remained stable throughout the procedure. Fluoroscopic time: 6.3 minutes. Contrast: 70 mL Hexabrix administered in travenously and intra-arterially without complication. Local anesthetic: 4 mL 1% lidocaine. FINDINGS: Please see description above. IMPRESSION: 1. Successful balloon angioplasty to 6 m m in outflow stenosis and 5 mm in inflow stenosis extending to the AV a nastomosis. Good result at completion. 2. 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 Attempt is made to cross the chronic occlusion with guidewi re and JB1 catheter, though unsuccessful. Multiple collateralized ve ins noted especially arising from the axillary and subclavian veins. The above findings were discussed by lizy linton and Dr. Buenrostro immediately after the procedure. Concern for longevi ty of fistula given chronic central occlusion. G Jagdeep Holman MD IMG IR ORDERABLES documented in this encounter Visit Diagnoses Diagnosis ESRF (end stage renal failure) (H) End stage renal disease documented in this encounter Administered Medications Inactive Administered Medications - up to 3 most recent administrations Medication Order MAR Action Action Date Dose Rate Site fentaNYL (SUBLIMAZE) injection Given 04/24/2012 2:59 PM CDT 25 m cg 25-50 mcg 25-50 mcg, Intravenous, EVERY 5 MIN PRN, severe pain (7-10), If inadequate response may repeat 25 mcg IV slowly Q 5 min PRN severe pain, Administer over 2 Minutes, Starting on Tue04/24/12 at 1438, Doses can be exceeded under direct oversight of patient by physician., IR Intra-procedure Given 04/24/2012 2:39 PM CDT 50 mcg Ioxaglate Meglumine & Sodium (Hexabrix 320) Given 04/24/2012 3:35 PM CDT 70 mLs iv solution 50 mL 50 mL, INTRA-ARTERIAL, ONCE, On Tue04/24/12 at 1545, For 1 dose midazolam (VERSED) injection 0.5-1 mg Given 04/24/2012 2:59 PM CDT 0.5 mg 0.5-1 mg, Intravenous, Administer over 1 Minutes, EVERY 4 MIN PRN, sedation, If inadequate response may repeat 0.5 mg IV slowly Q 4 minutes PRN sedation until desired response., Starting on Tue04/24/12 at 1438, Doses can be exceeded under direct oversight of patient by physician., IR Intra-procedure Given 04/24/2012 2:39 PM CDT 1 mg documented in this encounter Active and Recently Administered Medications Times are shown in CDT. Scheduled Medication Order 04/22/2012 04/23/2012 04/24/2012 Ioxaglate Meglumine & Sodium (Hexabrix 320) iv solution 50 mL (C OMPLETED) 1535 (Given - Provider: Mackenzie Thomas) 50 mL, INTRA-ARTERIAL, ONCE, Tue04/24/12 at 1545, For 1 dose PRN Medication Order 04/22/2012 04/23/2012 04/24/2012 fentaNYL (SUBLIMAZE) injection 25-50 mcg (CANCELED) 143 (Given - Provider: Carolyn Garcia)1459 (Given - Provider: Carolyn Garcia) 25-50 mcg, Intravenous, EVERY 5 MIN PRN, severe pain, If inadequate response may repeat 25 mcg IV slowly Q 5 min PRN severe pain, Starting Tue04/24/12 at 1438, Doses can be exceeded under direct oversight of patient by physician., IR Intra-procedure midazolam (VERSED) injection 0.5-1 mg (CANCELED) 143 (Given - Provider: Carolyn Garcia)1459 (Given - Provider: Carolyn Garcia) 0.5-1 mg, Intravenous, EVERY 4 MIN PRN, sedation, If inadequate response may repeat 0.5 mg IV slowly Q 4 minutes PRN sedation until desired response., Starting Tue04/24/12 at 1438, Doses can be exceeded under direct oversight of patient by physician., IR Intra-proce dure documented in this encounter Care Teams Switchboard And Control Room Operator Relationship Specialty Start Date End Date Preet Huff PCP - General 06/24/11 documented as of this encounter
--- OUTSIDE RECORDS SUMMARY | 2022-09-01 20:25 | XMS_ITS | Encounter Summary ---
:1965 Author Organization [place] Address [address] [place] [address]. [place] [address] Care Team Providers Name Role Phone Preet Huff Primary Care Provider Encounter Details Date Type Department Care Team Description 08/03/2012 Orders Only [facility] Yolanda Garcia CRF ( chronic renal [facility], RN failure) (Primary Dx) Care [address] [facility] [address] Social History Tobacco Use Types [...] unspecified documented in this encounter Care Teams Boiler Fireman Relationship Specialty Start Date End Date Preet Huff PCP - General 06/24/11 documented as of this encounter
--- OUTSIDE RECORDS SUMMARY | 2022-09-01 20:26 | XMS_ITS | Encounter Summary ---
:1965 Author Organization [place] Address [address] [place] [address] Care Team Providers Name Role Phone Preet Huff Primary Care Provider Encounter Details Date Type Department Care Team Description 07/17/[address] [facility] Tyrel Gonzalez, Renal julianna Ariane tomas Interventional RN uns pecified (Primary Radiology Dx) [address] [place] [id number] Social History Tobacco Use Types Packs/Day Years Used Date Smoking Tobacco: Never Assessed Sex Assigned at Date Recorded Not on file documented as of this encounter Plan of Treatment Not on filedocumented as of this encounter Visit Diagnoses Diagnosis Renal failure, unspecified - Primary documented in this encounter Care Teams Make Up Arranger Relationship Specialty Start Date End Date Preet Huff PCP - General 06/24/11 documented as of this encounter
--- OUTSIDE RECORDS SUMMARY | 2022-09-01 20:26 | XMS_ITS | Encounter Summary ---
:1965 Author Organization [place] Address [address] [place] [address] Care Team Providers Name Role Phone Preet Huff Primary Care Provider Reason for Visit Reason Comments Other Dialysis port fell out of est. Encounter Details Date Type Department Care Team Description 07/16/2011 Emergency [facility] Jacob Lozano C omplication of renal [place] af[facility] Emergency MD dialysis device Dept [facility] [address] [place] [address] [place] [phone] [place] [address] [place], [place] [id number] (Wo rk) Social History Tobacco Use Types Packs/Day Years Used Date Smoking Tobacco: Never Assessed Sex Assigned at Date Recorded Not on file documented as of this encounter Last Filed Vital Signs Vital Sign Reading Time Taken Comments Blood Pressure 154/78 07/16/2011 6:12 PM CDT Pulse - - Temperature 37.1 ??C (98.8 ??F) 07/16/2011 2:42 PM CDT Respiratory Rate 18 07/16/2011 6:12 PM CDT Oxygen Saturation 97% 07/16/2011 6:12 PM CDT Inhaled Oxygen Concentration - - Weight 76.7 kg (169 lb) 07/16/2011 2:42 PM CDT Height 162.6 cm (5' 4) 07/16/2011 2:42 PM CDT Body Mass Index 29.01 07/16/2011 2:42 PM CDT documented in this encounter Discharge Instructions AttachmentsThe following attachments cannot be sent through Care Everywhere. HEMODIALYSIS (MALDIVIAN)documented in this encounter Medications at Time of Discharge Medication Sig Dispensed Refills Start Date End Date b lxhbbiy-V-rhtmo acid Take 1 capsule by 0 03/04/2016 [...] not have hold on dialysis days listed) simvastatin (ZOCOR) 40 MG Take 40 mg by mouth 0 12/16/2017 tablet every evening amLODIPine (NORVASC) 10 MG Take 10 mg by mouth 0 07/31/2012 tablet daily. Cholecalciferol (VITAMIN D Take by mouth. 0 05/02/2012 PO) FOLIC ACID PO Take by mouth. 0 012 Warfarin Sodium (COUMADIN Take 2.5 mg by 0 04/24/2012 PO) mouth daily. M,W,Th,F,S,S documented as of this encounter ED Notes Jacob Lozano MD - 07/16/2011 5:49 PM CDT History Chief Complaint: Dialysis catheter fell out HPI Herminio Victor is a 46 year old male who presents with a dialysis catheter that fell out. The patient states his dialysis port fell out of his chest. He denies he was sleeping or manipulating the catheter at the time and denies any associated pain or bleeding. He reports he dialyzes every Tuesday, and Tuesday. He states he goes to dialysis for a kidney problem. He denies any fevers, chills, diaphoresis or pain at this time. Allergies: Aspirin Medications: Amlodipine Folic Acid Dulcolax Nephrocaps Lisinopril Simvastatin Warfarin Calcium Acetate Past Medical History: Hypertension Anemia Retinopathy Kidney disease Sleep Apnea Hyperkalemia End stage renal disease Diabetes mellitus Syncope Past Surgical History: History reviewed. No pertinent past surgical history. Family / Social History: Patient presents to the ED by himself. Review of Systems Constitutional: Negative for fever, chills and diaphoresis. Skin: Positive for dialysis catheter falling out. Negative for associated pain or bleeding. Physical Exam First Vitals: BP: 153/85 mmHg Heart Rate: 70 Temp: 98.8 ??F (37.1 ??C) Resp: 16 Height: 162.6 cm (5' 4) Weight: 76.658 kg (169 lb) SpO2: 99 % Physical Exam Constitutional: He is oriented to person, place, and time. He appears well- developed. No distress. Pulmonary/Chest: Breathing comfortably on room air. Neurological: He is alert and oriented to person, place, and time. Skin: Right subclavian central catheter site is clean, no evidence of infection, no bleeding, no drainage. Psychiatric: Pleasant. Emergency Department Course Emergency Department Course: I reviewed the patient's medical record. 1748 The patient was seen and examined by myself. I discussed the course of care with the patient including laboratory and diagnostic studies. He understands and is agreeable to the plan. The patient will be discharged home to follow up with primary care doctor per discharge instructions. Indications for return to the ED were discussed and the patient understands. All questions were answered prior to discharge. Impression & Plan Medical Decision Making: The patient was seen and examined in room 29. Old records and nursing notes were reviewed. At this time the patient's Demar central venous catheter in the right subclavian fell out, per his words, last night while sleeping. He now presents here. There is no bleeding, no infection, no pain. He is dueto dialyze tomorrow. Unfortunately it is now after hours. Since this is not an emergency and he is having no symptoms, pain or bleeding, the site does not look infected and a dressing is over it with no drainage, he will be discharged home. I will have him follow up with Dr. Saravia who has been workingon a fistula for him. Certainly if he develops any symptoms, pain, nausea, vomiting, I'd like him to return to the emergency department. Otherwise he was discharged home with follow up with surgery, I'd like him to call tomorrow for follow up care. Diagnosis: 1. Demar catheter accidental removal Disposition is stable to home. I, Sandra Liv, am serving as a scribe on 07/16/2011 at 5:49 PM to personally document services performed by Dr. Jacob Lozano based on my observations and the provider's statements to me. Jacob Lozano MD 07/16/11 [id number] documented in this encounter Plan of Treatment Not on filedocumented as of this encounter Visit Diagnoses Diagnosis Complication of renal dialysis device Other complications due to renal dialysi s device, implant, and graft documented in this encounter Care Teams Mold Shop Supervisor Relationship Specialty Start Date End Date Preet Huff PCP - General 06/24/11 documented as of this encounter
--- OUTSIDE RECORDS SUMMARY | 2022-09-01 20:26 | XMS_ITS | Encounter Summary ---
:1965 Author Organization [place] Address [address] [facility] [place] [address] Care Team Providers Name Role Phone HuffPreet cool Primary Care Provider Encounter Details Date Type Department Care Team Description 07/19/2011 Hospital Encounter [facility] Michele Fuentes Renal failure, [facility] MD Jared unspecified Suites [place] [address] [facility] RADIOLOGIC CONS [place], [place] [address] [facility] [id number] [address] [place], [place] [id number] Social History Tobacco Use Types Packs/Day Years Used Date Smoking Tobacco: Never Assessed Sex Assigned at Date Recorded Not on file documented as of this encounter Last Filed Vital Signs Vital Sign Reading Time Taken Comments Blood Pressure 149/88 07/19/2011 12:15 PM CDT Pulse - - Temperature 36.6 ??C (97.8 ??F) 07/19/2011 8:25 AM CDT Respiratory Rate 20 07/19/2011 12:15 PM CDT Oxygen Saturation 100% 07/19/2011 12:15 PM CDT Inhaled Oxygen Concentration - - Weight 76.7 kg (169 lb) 07/19/2011 8:25 AM CDT Height 162.6 cm (5' 4) 07/19/2011 8:25 AM CDT Body Mass Index 29.01 07/19/2011 8:25 AM CDT documented in this encounter Discharge Instructions Discharge Suze Hylton RN - 07/19/2011 1:05 PM CDT Images from the original note were not included. Home Back SP HEMODIALYSIS The role of the kidneys is to remove waste products and extra water from the body.??They also??maintain balanced levels of minerals in the body, called electrolytes. The kidneys are essential for the health of the body. Persons with severe kidney disease are not able to perform these functions any longer.??This may be due to a temporary or a permanent kidney condition. Hemodialysis is a treatment that takes over the essential functions of the kidney until you recover from the kidney disease, or obtain a kidney transplant.??If you have chronic renal failure and are not eligible for a transplant, you will need to have hemodialysis for the rest of your life.?? Hemodialysis requires access to a strong blood flow. There are three ways to do this.? A dialysis catheter. This is a plastic tube inserted into a large blood vessel, usually for temporary access. ?? An AV fistula. Through a minor surgical procedure, an artery in your arm is joined directly to a vein creating an arteriovenous fistula. It takes 2-4 months for the fistula to enlarge enough to be ready for dialysis. ?? An AV graft.??This is an artificial implant that joins an artery and vein in persons with small veins. It can also be used??when an AV fistula did not work. It can be used for dialysis a few weeks after the surgery. A connecting tube carries blood from the access point in the body to the dialysis machine where special filters process the blood. Then the blood is returned to the body. This takes 3 to 4 hours and isusually done 3 times a week. Hemodialysis is lifesaving for people with kidney disease, but there are possible side effects. These include infection, low blood pressure, bleeding, electrolyte imbalance, anemia, and heart disease. HOME CARE 1. Take any medicines as directed by your doctor. 2. Follow your special renal diet as provided by your doctor. 3. Don???t wear any clothing that could put pressure on the access site. 4. When sleeping, don???t lie on the access site. 5. If the access is in your arm, have blood pressure readings and blood samples taken from??the other arm. 6. Check the access site after dialysis for swelling, bleeding, or signs of infection. 7. If you have an AV fistula or graft, check the site regularly to be sure you can always feel the vibration (called the?thrill?? ) of blood flowing from artery to vein.??Don???t put lotions or other products on the access site. 8. If you have an external dialysis catheter, avoid physical activities that could pull on the catheter. FOLLOW UP with your doctor or as advised by our staff. RETURN PROMPTLY or contact your doctor if any of the following occur: ?? External catheter starts bleeding or opens to air ?? Color of the blood in the external tubing changes from bright red to dark red ?? You don???t feel the ???thrill?? in an AV fistula or graft ?? Nausea or vomiting ?? Severe weakness, dizziness, fainting, drowsiness, or confusion ?? Chest pain or shortness of breath ?? Unexpected weight gain or swelling in the legs, ankles, or around the eyes ?? Decreased or absent urine output if you previously made urine ?? Fever over 100.0??F (37.8??C) ?? 9278-4708 [place] [address]. All rights reserved. This information is not intended as a substitute for professional medical care. Always follow your healthcare professional's instructions.Home Back SP CHRONIC RENAL FAILURE The role of the kidneys is to remove waste products and excess water from the blood.?? When the kidneys do not function normally and waste products begin to build up in the blood, this is called?renal insufficiency?? . When it is advanced, it is called ???chronic renal failure?? or ???end-stage renal disease?? .??Chronic renal failure allows excess water, waste and toxic substances to build up in the body. This can eventually become life-threatening, requiring dialysis or a kidney transplant to stay alive. Diabetes is the leading causes of chronic renal failure. Other causes include high blood pressure, hardening of the arteries (atherosclerosis), lupus, inflammation of the blood vessels (vasculitis), prior viral and bacterial infections, and others. Certain egpp-phb-lnenabp pain medicines can cause renal failure when taken often over a long period of time. These include aspirin, ibuprofen (Advil, Motrin) and related anti-inflammatory medicines. HOME CARE: 1. If you have diabetes, talk to your doctor about the quality of your blood sugar control and any adjustments needed to your diet. 2. If you have high blood pressure: ?? Take prescribed medicine to lower your blood pressure to normal (130/80 mm Hg).? Take up a regular exercise program that you enjoy.??Check with your doctor to be sure your planned exercise program is right for you. ?? Reduce your salt (sodium) intake.??Your doctor can tell you how much salt per day is safe for you. 3. If you are overweight, talk to your doctor about a weight loss plan. 4. If you smoke, you must quit.?? Smoking worsens kidney disease.??Talk to your doctor about ways tohelp you quit.?? For more information, visit the following links: ?? www.smokefree.gov/pubs/clearing_the_air.pdf ?? www.smokefree.gov ?? www.A[employer]omot[employer].com 5. All patients with chronic renal failure need to follow a special diet.?? Be sure you understand yours. In general, you will need to restrict protein, salt, potassium and phosphorus.??You also need to limit fluid intake.??A calcium supplement will be prescribed to protect your bones from osteoporosis. 6. Avoid the following over the counter medicines, or consult your doctor before using: ?? Aspirin and anti-inflammatory drugs such as ibuprofen (Advil, Motrin), naprosyn (Aleve); [Short term use of acetaminophen (Tylenol) for fever or pain is okay.] ?? Laxatives and antacids containing magnesium or aluminum (Mylanta, Maalox) ?? Fleet or phosphosoda enemas containing phosphorus ?? Certain stomach acid-blocking medicine such as cimetidine (Tagamet), ranitidine (Zantac) ?? Decongestants containing pseudoephedrine (such as some forms of Sudafed or Actifed) ?? Herbal supplements FOLLOW UP with your doctor or as advised by our staff. Contact one of the following for more information. ?? [employer] Patients?? www.aakp.org ?? National Kidney Foundation www.kidney.org [NOTE: If an X-ray or EKG (cardiogram) was made, another specialist will review it. You will be notified of any new findings that may affect your care.] RETURN PROMPTLY or contact your doctor if any of the following occurs: ?? Nausea or vomiting ?? Severe weakness, dizziness, fainting, drowsiness or confusion ?? Chest pain or shortness of breath ?? Unexpected weight gain or swelling in the legs, ankles or around the eyes ?? Heart beating fast, slow or irregularly ?? Decrease or absent urine output ? [id number] [facility], [address] [place] [address]. All rights reserved. This information is not intended as a substitute for professional medical care. Always follow your healthcare professional's instructions.Keep this site clean and dry (no showering) and covered for 3 days Only change the dressing if it becomes wet or dirty AttachmentsThe following attachments cannot be sent through Care Everywhere. DIALYSIS SHUNT (FISTULA) BLEEDINGdocumented in this encounter Medications at Time of Discharge Medication Sig Dispensed Refills Start Date End Date b oqqqfot-F-zecsw acid Take 1 capsule by 0 03/04/2016 [...] ACID PO Take by mouth. 0 012 warfarin (COUMADIN) 5 MG Take 1 tablet by 0 04/24/2012 tablet mouth once a week. On Tuesdays Warfarin Sodium (COUMADIN Take 2.5 mg by mouth 0 04/24/2012 PO) daily. M,W,Th,F,S,S documented as of this encounter Progress Notes Suze Underwood RN - 07/19/2011 2:43 PM CDT Written discharge instructions given to patient. Patient's discharge was delayed due to transportation issues. He was taken to the ER discharge door at 1445 along with his aunt to await a taxi cab that was called by Rachael Turner. [facility] dialysis aware and [facility] transport able to take patient home after dialysis. Site without pain or bleeding. Yasemin Solis RN - 07/19/2011 1:23 PM CDT Instructed patient using Port discharge instruction sheet. Patient indicated good understanding. Michele Fuentes MD - 07/19/2011 12:03 PM CDT Old tunnel track cannalized and new 28cm 14.5 bulgarian tunneled CVC placed. Tip is in the low RA. Bothports aspirated and flushed with saline and heparin locked. Yolnada Garcia RN - 07/19/2011 11:56 AM CDT Interventional Radiology Intra-procedural Nursing Note Patient Name: Herminio Victor Today's Date: July 19, 2011 Start Time: 1117 End of procedure time: 1142 Procedure: tunnel cath Report given to: Regla MCKEON Time pt departs: 1200 Vp Delivery: Other Notes: Pt going to [facility] Report will be called to RN there also. Yolanda Garcia documented in this encounter Plan of Treatment Not on filedocumented as of this encounter Procedures Procedure Name Priority Date/Time Associated Diagnosis Comme nts IR CVC TUNNEL Routine 07/19/2011 12:02 PM Renal failure, Resul ts for this REVISION RIGHT CDT unspecified procedure are in the results section. INR STAT 07/19/2011 10:25 AM Results for this CDT procedure are i n the results section. documented in this encounter Results INT Tunnel catheter revision rt (07/19/2011 12:02 PM CDT) Anatomical Region Laterality Modality Chest Other Specimen (Source) Anatomical Collection Method Collection Time Re ceived Time Location / / Volume Laterality 07/19/2011 12:02 PM CDT Impressions 07/23/2011 8:23 PM CDT TUNNELED CATHETER REVISION RIGHT ?Oc t 2010 12:02:00 PM HISTORY: Renal failure. Catheter fell ou t Tuesday, 07/16. COMPARISON: 03/03/2011. DESCRIPTION OF PROCEDURE: After obtainin g informed consent, the patient was placed in a supine position on the fluoroscopy table. The right neck was prepped and draped in the usual sterile manner. 1% lidocaine was injected for local anesthe burke. A CHARLI-1 catheter was used to catheterize the old catheter tunnel. 3 mL contrast was injected. The tunnel tract continued to the IJ corey otomy site. The CHARLI-1 catheter was then able to maneuver a wire through the tunnel into the right IJ and subsequently into the IVC. A stiff w jaskaran was placed. The track and venotomy site were then dilated with a 1 6 Armenian dilator. Subsequently, a 14.5 Armenian 28 cm tunnel ed Palindrome dialysis catheter was placed. The tip was positio sol in the low right atrium. Both ports were aspirated, flushed with saline and heparin locked. The catheter was sutured to the patient's sk in. The patient tolerated the procedure well . There were no immediate postprocedure complications. The patient 's vital signs were monitored by radiology nursing staff under my supe rvision and remained stable throughout the study. Medications: Versed 1 mg, fentanyl 50 mg , Hep-Lock 500, Ancef 2 grams. Sedation time: 27 minutes. Fluoroscopy time: 2.9 minutes. Contrast: 3 mL Visipaque. Local anesthetic: 7 mL 1% lidocaine. IMPRESSION: Tunneled dialysis catheter p laced through old tunnel tract as described above. Wojciech Holman MD IMG IR ORDERABLES (ABNORMAL) INR (07/19/2011 10:25 AM CDT) P athologist Signature INR 2.32 (H) 0.86 - 1.14 [facility] Specimen Anatomical Collection Method Collection Time Receive d Time (Source) Location / / Volume Laterality Blood specimen 07/19/2011 10:25 1 (specimen) AM CDT 10:35 AM CDT Michele Fuentes MD LAB - BLOOD ORDERABLES Performing Organization Address City/State/ZIP Code Phon e Number M [facility] [address] [facility] [place] [address] [facility] documented in this encounter Visit Diagnoses Diagnosis Renal failure, unspecified documented in this encounter Administered Medications Inactive Administered Medications - up to 3 most recent administrations Medication Order MAR Action Action Date Dose Rate Site ceFAZolin (ANCEF) 2-0.9% IVPB New Bag 07/19/2011 10:40 AM CDT 2 g 200 mL/hr Starting on Tue07/19/11 at 0912, For 1 dose, Devorah Rene: Cabinet Override fentanyl (SUBLIMAZE) 0.05 MG/ML injectio n Starting on Tue07/19/11 at 0906, For 1 dose, Yolanda Garcia: Cabinet Override fentanyl (SUBLIMAZE) injection 25-50 mcg Given 07/19/2011 11:15 AM CDT 50 mcg 25-50 mcg, Intravenous, EVERY 5 MIN PRN, severe pain (7-10), If inadequate response may repeat 25 mcg IV slowly Q 5 min PRN severe pain, Administer over 2 Minutes, Starting on Tue07/19/11 at 1058, Doses can be exceeded under direct oversight of patient by physician., IR Intra-procedure Heparin (Porcine) Lock Flush 100 UNIT/ML SOLN Starting on Tue07/19/11 at 0907, For 1 dose, Yolanda Garcia: Cabinet Override HEParin 100 UNIT/ML injection 500 Units Given 07/19/2011 11:41 AM CDT 500 Units 500 Units, Intracatheter, ONCE, On Tue07/19/11 at 1130, For 1 dose, IR Intra-procedure iodixanol (VISIPAQUE) injection 3 mL Given 07/19/2011 11:49 AM CDT 50 mLs 3 mL, Intravenous, ONCE, On Tue07/19/11 at 1200, For 1 dose lidocaine 1 % injection 20 mg Given 07/19/2011 11:17 AM CDT 7 mg 20 mg, Other, DAILY PRN, As given by Dr Fuentes, Starting on Tue07/19/11 at 1100, IR Intra-procedure lidocaine 1 % injection Starting on Tue07/19/11 at 0916, For 1 dose, Yolanda Garcia: Cabinet Override midazolam (VERSED) 1 MG/ML injection Starting on Tue07/19/11 at 0906, For 1 dose, Yolanda Garcia: Cabinet Override midazolam (VERSED) injection 0.5-1 mg Given 07/19/2011 11:15 AM CDT 1 mg 0.5-1 mg, Intravenous, Administer over 1 Minutes, EVERY 4 MIN PRN, sedation, If inadequate response may repeat 0.5 mg IV slowly Q 4 minutes PRN sedation until desired response., Starting on Tue07/19/11 at 1058, Doses can be exceeded under direct oversight of patient by physician., IR Intra-procedure documented in this encounter Active and Recently Administered Medications Times are shown in CDT. Scheduled Medication Order 07/17/2011 07/18/2011 07/19/2011 HEParin 100 UNIT/ML injection 500 Units (COMPLETED) 1141 (Given - Provider: Yolanda Garcia RN) 500 Units, Intercatheter, ONCE, 07/10 at 1130, For 1 dose, IR Intra-procedure iodixanol (VISIPAQUE) injection 3 mL (COMPLETED) 1149 (Given - Provider: Heidi Orlando - Comment: TOTAL DOSE CHARTED) 3 mL, Intravenous, ONCE, 07/19/11 at 1200, For 1 dose PRN Medication Order 07/17/2011 07/18/2011 07/19/2011 fentanyl (SUBLIMAZE) injection 25-50 mcg (CANCELED) 1115 (Given - Provider: Yolanda Garcia, LINDA) 25-50 mcg, Intravenous, EVERY 5 MIN PRN, severe pain, If inadequate response may repeat 25 mcg IV slowly Q 5 min PRN severe pain, Starting Tue07/19/11 at 1058, Doses can be exceeded under direct oversight of patient by physician., IR Intra-procedure lidocaine 1 % injection 20 mg (CANCELED) 1117 (Given - Provider: Yolanda Garcia, LINDA) 20 mg, Other, DAILY PRN, As given by Dr Fuentes, Starting Tue07/19/11 at 1100, IR Intra-procedure midazolam (VERSED) injection 0.5-1 mg (CANCELED) 1115 (Given - Provider: Yolanda Garcia RN) 0.5-1 mg, Intravenous, EVERY 4 MIN PRN, sedation, If inadequate response may repeat 0.5 mg IV slowly Q 4 minutes PRN sedation until desired response., Starting Tue07/19/11 at 1058, Doses can be exceede d under direct oversight of patient by physician., IR Intra-proc edure No Frequency Medication Order 07/17/2011 07/18/2011 07/19/2011 ceFAZolin (ANCEF) 2-0.9% IVPB (COMPLETED) 1040 (New Bag - Provider: Aleta Mcgowan RN) Starting Tue07/19/11 at 0912, For 1 dose, Devorah Rene: Cabinet Override documented in this encounter Care Teams Molder Helper Relationship Specialty Start Date End Date Preet Huff PCP - General 06/24/11 documented as of this encounter
--- OUTSIDE RECORDS SUMMARY | 2022-09-01 20:26 | XMS_ITS | Encounter Summary ---
:1965 Author Organization [place] Address [address] [facility] [place] [address] Care Team Providers Name Role Phone Preet Huff Primary Care Provider Encounter Details Date Type Department Care Team Description 06/24/2011 Results Only [facility] [address] [place] [address] (Wo rk) Social History Tobacco Use Types Packs/Day Years Used Date Smoking Tobacco: Never Assessed Sex Assigned at Date Recorded Not on file documented as of this encounter Plan of Treatment Not on filedocumented as of this encounter Procedures Procedure Name Priority Date/Time Associated Diagnosis Comme nts VUS US ART-VENOUS Routine 06/24/2011 2:07 PM Resu lts for this DIALYSIS GRAFT CDT procedure are in the results section. documented in this encounter Results US art-venous dialysis graft (vascular lab) (06/24/2011 2:07 PM CDT) Anatomical Region Laterality Modality Other Specimen (Source) Anatomical Collection Method Collection Time Re ceived Time Location / / Volume Laterality 06/24/2011 2:07 PM CDT Impressions 06/25/2011 12:20 PM CDT [facility] ULTRASOUND ART ERIOVENOUS DIALYSIS GRAFT ??Jun 24, 2011 2:07 PM HISTORY: Poorly functioning right radial brachial dialysis graft. COMPARISON: None. FINDINGS: A proximal right radial artery to brachial vein fistula is patent. There is elevation in peak systo lic velocity at the arteriovenous anastomosis equaling 607 c m/sec. There is a question of a visual narrowing in this region on orville l time color Doppler imaging. Approximately 8 mm from the arteriovenou s anastomosis, there is a focal area of increased velocity equalin g 616 cm/sec. This appears to be associated with valves within the out flow vein. Luminal diameter of the vein is not significantly narrowed i n this region measuring 4.2 mm. Valves are also identified within th e brachial vein at the mid humerus level. Jaxon Saravia MD IMG US ORDERABLES documented in this encounter Visit Diagnoses Not on filedocumented in this encounter Care Teams Brushing Operator Relationship Specialty Start Date End Date Preet Huff PCP - General 06/24/11 documented as of this encounter
--- OUTSIDE RECORDS SUMMARY | 2022-09-01 20:26 | XMS_ITS | Encounter Summary ---
:1965 Author Organization [facility] Address [address] [place] [address]. [place] [address] Care Team Providers Name Role Phone Preet Huff Primary Care Provider Encounter Details Date Type Department Care Team Description 07/07/2011 Hospital Laboratory [facility] MD Preet Results [address] [facility] [address] [place] [address] (Wo rk) Social History Tobacco Use Types Packs/Day Years Used Date Smoking Tobacco: Never Assessed Sex Assigned at Date Recorded Not on file documented as of this encounter Plan of Treatment Not on filedocumented as of this encounter Procedures Procedure Name Priority Date/Time Associated Diagnosis Comme nts GLUCOSE BY METER Routine 07/07/2011 10:56 AM Resu lts for this CDT procedure are i n the results section. INR Routine 07/07/2011 10:55 AM Results for this CDT procedure are i n the results section. POTASSIUM Routine 07/07/2011 10:55 AM Results for this CDT procedure are i n the results section. documented in this encounter Results Glucose by meter (07/07/2011 10:56 AM CDT) P athologist Signature Glucose 80 60 - 99 [facility] mg/dL HOSPITAL LAB Specimen Anatomical Collection Method Collection Time Receive d Time (Source) Location / / Volume Laterality 07/07/2011 10:56 07/07/2011 AM CDT 11:15 AM CDT Jaxon Saravia MD [facility] POCT Performing Organization Address City/State/ZIP Code Phon e Number M [facility] [address] [place], [place] [address] [facility] Potassium (07/07/2011 10:55 AM CDT) P athologist Signature Potassium 5.0 3.4 - 5.3 [place] mmol/L [facility] Specimen Anatomical Collection Method Collection Time Receive d Time (Source) Location / / Volume Laterality 07/07/2011 10:55 07/07/2011 AM CDT 11:04 AM CDT Jaxon Saravia MD LAB - BLOOD ORDERABLES Performing Organization Address City/State/ZIP Code Phon e Number M [facility] [address] [id number] [facility] INR (07/07/2011 10:55 AM CDT) athologist Signature INR 1.10 0.86 - 1.14 [facility] Specimen Anatomical Collection Method Collection Time Receive d Time (Source) Location / / Volume Laterality 07/07/2011 10:55 07/07/2011 AM CDT 11:04 AM CDT Jaxon Saravia MD LAB - BLOOD ORDERABLES Performing Organization Address City/State/ZIP Code Phon e Number M [facility] [address] [id number] [facility] documented in this encounter Visit Diagnoses Not on filedocumented in this encounter Care Teams Rubber Heel And Sole Press Tender Relationship Specialty Start Date End Date Preet Huff PCP - General 06/24/11 documented as of this encounter
--- OUTSIDE RECORDS SUMMARY | 2022-09-01 20:26 | XMS_ITS | Encounter Summary ---
:1965 Author Organization [place] Address [address] [place] [address]. [place] [address] Care Team Providers Name Role Phone Unavailable Primary Care Provider Unavailable Encounter Details Date Type Department Care Team Description 03/03/2011 [facility] Preet Results [address] [facility] [address] [place] [address] (Wo rk) Social History Tobacco Use Types Packs/Day Years Used Date Smoking Tobacco: Never Assessed Sex Assigned at Date Recorded Not on file documented as of this encounter Plan of Treatment Not on filedocumented as of this encounter Procedures Procedure Name Priority Date/Time Associated Diagnosis Comme nts ELECTROLYTE PANEL Routine 03/03/2011 12:50 PM Res ults for this CDT procedure are i n the results section. HEMOGLOBIN Routine 03/03/2011 12:50 PM Results for this CDT procedure are i n the results section. GLUCOSE BY METER Routine 03/03/2011 12:44 PM Resu lts for this CDT procedure are i n the results section. documented in this encounter Results (ABNORMAL) Hemoglobin (03/03/2011 12:50 PM CDT) P athologist Signature Hemoglobin 9.8 (L) 13.3 - 17.7 [place] g/dL [facility] Specimen Anatomical Collection Method Collection Time Receive d Time (Source) Location / / Volume Laterality 03/03/2011 12:50 03/03/2011 1:03 PM CDT PM CDT Jaxon Saravia MD LAB - BLOOD ORDERABLES Performing Organization Address City/State/ZIP Code Phon e Number M [facility] [address] [place] [address] [facility] Electrolyte panel (03/03/2011 12:50 PM CDT) athologist Signature Sodium 140 133 - 144 [place] mmol/L [facility] Potassium 4.8 3.4 - 5.3 [place] mmol/L [facility] Chloride 100 94 - 109 [place] mmol/L [facility] Carbon Dioxide 25 20 - 32 [place] mmol/L [facility] Anion Gap 15 6 - 17 [place] mmol/L [facility] Specimen Anatomical Collection Method Collection Time Receive d Time (Source) Location / / Volume Laterality 03/03/2011 12:50 03/03/2011 1:03 PM CDT PM CDT Jaxon Saravia MD LAB - BLOOD ORDERABLES Performing Organization Address City/State/ZIP Code Phon e Number [facility] [address] [phone] [facility] Glucose by meter (03/03/2011 12:44 PM CDT) athologist Signature Glucose 75 60 - 99 [facility] mg/dL [facility] Specimen Anatomical Collection Method Collection Time Receive d Time (Source) Location / / Volume Laterality 03/03/2011 12:44 03/03/2011 1:05 PM CDT PM CDT Jaxon Saravia MD LAB - BEAKER POCT Performing Organization Address City/State/ZIP Code Phon e Number M [facility] [address] [place], [place] [address] [facility] documented in this encounter Visit Diagnoses Not on filedocumented in this encounter
--- OUTSIDE RECORDS SUMMARY | 2022-09-01 20:26 | XMS_ITS | Encounter Summary ---
:1965 Author Organization [place] Address [address] [facility] [place] [address] Care Team Providers Name Role Phone Unavailable Primary Care Provider Unavailable Encounter Details Date Type Department Care Team Description 01/15/2011 Operative Report [facility] Jaxon Buenrostro (Web Site Project Manager) [facility] MD Preet Results [address] [facility] [address] [place] [address] (Wo rk) Social History Tobacco Use Types Packs/Day Years Used Date Smoking Tobacco: Never Assessed Sex Assigned at Date Recorded Not on file documented as of this encounter Progress Notes Jaxon Buenrostro - 01/16/2011 10:08 AM CDT FINAL [place]: Cyndee Meraz [place] PREOPERATIVE DIAGNOSIS: Chronic renal failure, in need of permanent hemodialysis access. POSTOPERATIVE DIAGNOSIS: Chronic renal failure, in need of permanent hemodialysis access. PROCEDURE: Left distal radial-cephalic Brescia arteriovenous fistula. ANESTHESIA: Local with intravenous supplementation. PREOPERATIVE MEDICATIONS: Ancef 1 gm IV. INDICATIONS: Julio Cesar Victor is on chronic hemodialysis via a tunneled catheter. He has a well-developed left forearm cephalic vein and good radial artery with a normal Matthew test and Doppler signals. It was felt he would benefit from a left distal radiocephalic fistula. DESCRIPTION OF PROCEDURE: The patient was brought to the operating room and the left arm was prepped and draped in the usual fashion. 1% lidocaine with bicarbonate was used for local field block anesthetic. A distal radial incision was made. Dissection was carried down to identify a small but completely disease-free cephalic vein. This was dissected free, ligating several small branches with 4-0 silk suture. We then exposed the radial artery. This was slightly calcified but relatively soft measuring approximately 22.5 mm in diameter. This was dissected free, preserving several small side branches and placing proximal and distal Silastic vessel loops. Intravenous heparin 3000 units were given. The distal end of the vein was ligated with 3-0 silk suture and divided. This was spatulated. This easily irrigated with heparinized saline solution and gently dilated with 1% lidocaine. This sequentially admitted up to a 3 mm dilator with no difficulty. Micr ovascular bulldog clamp was applied. Vessel loops were tightened on the right radial artery, and a 1cm longitudinal arteriotomy was made. End-to-side anastomosis was created with interrupted 7-0 Prolene suture and GARY-20U clips. With release of the vessel loops, we had an excellent palpable pulse and thrill within the fistula. By Doppler, we identified a more proximal side branch under our skin flap. We dissected free to identify and ligate this branch along with several smaller branches. There was still an additional competing branch in the distal 1/4 of the forearm. This was identified by Doppler. A separate incision wasmade over this ligating this branch. Following this, we could easily palpate the pulse in the antecubital level with a good Doppler signal noted and no competing side branches and excellent thrill. Thewounds were infiltrated with 0.5% Marcaine. Subcutaneous tissue was closed with interrupted 3-0 Vicryl and the skin was closed with 4-0 Monocryl in subcuticular fashion. Steri-Strips, gauze and Uriel rolls were applied. The patient tolerated the procedure well. Needle and sponge count correct x2. There were no complications. ESTIMATED BLOOD LOSS: Less than 10 cc. The patient has a small but very adequate arteries and veins and should mature to a good fistula. He has supposedly an allergy to aspirin which was due to GI bleeding and therefore was not a true aspirin allergy. I will place him on a baby aspirin daily until I see him back in the clinic and follow up in 2 weeks. Electronically signed on 01/16/2011 10:08 by JAXON BUENROSTRO MD MT: [id number] Name: JULIO CESAR VICTOR Account: [id number] : 1965 Procedure Date: 01/15/2011 Document: [id number] cc: [facility] Mason MD [facility] documented in this encounter Plan of Treatment Not on filedocumented as of this encounter Visit Diagnoses Not on filedocumented in this encounter
--- OUTSIDE RECORDS SUMMARY | 2022-09-01 20:26 | XMS_ITS | Encounter Summary ---
:1965 Author Organization [place] Address [address] [facility] [place] [address] Care Team Providers Name Role Phone Unavailable Primary Care Provider Unavailable Encounter Details Date Type Department Care Team Description 03/03/2011 [facility] [address] [place] [address] (Wo rk) Social History Tobacco Use Types Packs/Day Years Used Date Smoking Tobacco: Never Assessed Sex Assigned at Date Recorded Not on file documented as of this encounter Plan of Treatment Not on filedocumented as of this encounter Procedures Procedure Name Priority Date/Time Associated Diagnosis Comme nts IR CVC TUNNEL Routine 03/03/2011 2:40 PM Results for this REVISION RIGHT CDT procedure are in the results section. US LOWER EXTREMITY Routine 03/03/2011 11:26 AM Re sults for this VENOUS MAPPING LEFT CDT procedur e are in the results section. documented in this encounter Results INT Tunnel catheter revision rt (03/03/2011 2:40 PM CDT) Anatomical Region Laterality Modality Chest Other Specimen (Source) Anatomical Collection Method Collection Time Re ceived Time Location / / Volume Laterality 03/03/2011 2:40 PM CDT Impressions 03/03/2011 4:56 PM CDT TUNNEL CATHETER REVISION RIGHT ??March 03, 2011 2:40:00 PM HISTORY: ??Suboptimal dialysis runs thro ugh existing tunneled dialysis catheter. FINDINGS: The procedure was explained to the patient in detail. The dialysis catheter was evaluated under fl uoroscopic guidance with contrast injection. Its tip is in the yoo perior vena cava. There was a small fibrin sheath at the tip of the ca theter. A Glidewire was placed through the catheter, and the catheter w as removed. The catheter was then replaced with a 14.5 Armenian 28 cm t ip-to-cuff Palindrome catheter which was advanced into the right atrium . Contrast was injected demonstrating good position of the leidy ter tip. There was good aspiration and flush function. The leidy ter was then subsequently heparin-locked. The catheter was sutured to the skin site with 2-0 Prolene. An image was obtained demonstra ting the tip of the catheter in the right atrium. There were no immed iate complications. Fluoro time: ??0.6 minutes. Contrast: 8 mL Visipaque. Local anesthetic: ??7 mL 1% lidocaine. Antibiotic: 1 gram IV Ancef. Conscious sedation: ??1 mg IV Versed, 50 mcg IV fentanyl. Sedation time: 10 minutes. The patient was monitored by radiology n ursing staff under my supervision and remained stable througho ut the study. IMPRESSION: ??Successful right tunneled dialysis catheter replacement. Jaxon Saravia MD IM IR ORDERABLES US Venous mapping lt (03/03/2011 11:26 AM CDT) Anatomical Region Laterality Modality Lower Extremity Other Specimen (Source) Anatomical Collection Method Collection Time Re ceived Time Location / / Volume Laterality 03/03/2011 11:26 AM CDT Impressions 03/08/2011 7:09 PM CDT ULTRASOUND VEIN MAPPING LEFT March 03 11:26 AM HISTORY: Preoperative for revision of le ft arm dialysis graft. FINDINGS: The left cephalic and basilic veins were mapped and marked. The cephalic vein is small in caliber. I ts diameters from proximal to distal range between 2.8 to 0.7 mm. The diameters of the left basilic vein range between 3.9 to 3.3 mm. Please refer to conductor pullman's diagram for diameters at specific levels . Jaxon Saravia MD IMG US ORDERABLES documented in this encounter Visit Diagnoses Not on filedocumented in this encounter
--- OUTSIDE RECORDS SUMMARY | 2022-09-01 20:26 | XMS_ITS | Encounter Summary ---
:1965 Author Organization [place] Address [address] [facility] [place] [address] Care Team Providers Name Role Phone Preet Huff Primary Care Provider Reason for Visit (Routine) - Closed Specialty Diagnoses / Procedures Referred By Contact Refer red To Contact Radiology Diagnoses US ART-VENOUS DIALYSIS GRAFT Procedure Notes: Right radial-brachial dialysis graft. Sh Ultrasound Procedures RADIOLOGY [address] [phone] Phone: Referral ID Status Reason Start Date Expiration Date Visits Requ ested Visits Authorized [id number] Closed 07/31/2011 07/30/2012 1 1 Encounter Details Date Type Department Care Team Description 08/04/2011 Hospital Encounter [facility] Min Saravia yue Oviedo MD [address] [place] [id number] [facility] [address] [facility] [address] [place], [place] [address] [address] [phone] Social History Tobacco Use Types Packs/Day Years Used Date Smoking Tobacco: Never Assessed Sex Assigned at Date Recorded Not on file documented as of this encounter Medications at Time of Discharge Medication Sig Dispensed Refills Start Date End Date b unaybqx-G-xqyfb acid Take 1 capsule by 0 03/04/2016 [...] daily. M,W,Th,F,S,S documented as of this encounter Plan of Treatment Not on filedocumented as of this encounter Procedures Procedure Name Priority Date/Time Associated Diagnosis Comme nts US EXTREMITY Routine 08/04/2011 3:28 PM Results f or this ARTERIAL VENOUS CDT procedure ar e in DIALYSIS ACCESS the results GRAFT section. documented in this encounter Results US hemodialysis access (08/04/2011 3:28 PM CDT) Anatomical Region Laterality Modality Vascular, Abdomen/Pelvis Other Specimen (Source) Anatomical Collection Method Collection Time Re ceived Time Location / / Volume Laterality 08/04/2011 3:28 PM CDT Impressions 08/05/2011 10:23 PM CDT ARTERIOVENOUS DIALYSIS GRAFT ?? Aug 04, 2011 3:28:00 PM HISTORY: 46-year-old male with right bra chiobasilic dialysis graft. FINDINGS: ??Inflow brachial artery is wi comfort patent. Arteriovenous anastomosis is patent. Velocities are so mewhat elevated at the anastomosis measuring 681/397 cm/sec. Th e valve is identified at the mid humerus level, though no associated elevated velocity. Considerably elevated velocity is noted in the upper arm outflow vein measuring 724/414 cm/sec with visible di ameter of 2.6 mm. Heterogeneous hypoechoic collection is n oted surrounding the upper portion of the arm of uncertain etiology , though may represent a hematoma. IMPRESSION: 1. Stenosis in the outflow segment of th e basilic vein measuring 2.6 mm in diameter. 2. Hypoechoic collection throughout the upper arm which may relate to hematoma. Difficult to determine if this may be causing stenosis in the outflow basilic vein. Remainder of t he basilic vein is patent. Jaxon Saravia MD IMG US ORDERABLES documented in this encounter Visit Diagnoses Not on filedocumented in this encounter Care Teams Central Office Repairer Relationship Specialty Start Date End Date Preet Huff PCP - General 06/24/11 documented as of this encounter
--- OUTSIDE RECORDS SUMMARY | 2022-09-01 20:26 | XMS_ITS | Encounter Summary ---
:1965 Author Organization [place] Address [address] [place] [address] Care Team Providers Name Role Phone Unavailable Primary Care Provider Unavailable Encounter Details Date Type Department Care Team Description 12/16/2010 Results Only [facility] Wojciech Abel MD Hospital Results INTERMED CONSUL TANTS [address] [facility] [address] [place], [place] [address] (Wo rk) Social History Tobacco Use Types Packs/Day Years Used Date Smoking Tobacco: Never Assessed Sex Assigned at Date Recorded Not on file documented as of this encounter Plan of Treatment Not on filedocumented as of this encounter Procedures Procedure Name Priority Date/Time Associated Diagnosis Comme nts IR CVC TUNNEL Routine 12/16/2010 2:27 PM Results for this REVISION RIGHT ASSISTANT PUBLIC DEFENDER procedure are in the results section. documented in this encounter Results INT Tunnel catheter revision rt (12/16/2010 2:27 PM ASSISTANT PUBLIC DEFENDER) Anatomical Region Laterality Modality Chest Other Specimen (Source) Anatomical Collection Method Collection Time Re ceived Time Location / / Volume Laterality 12/16/2010 2:27 PM ASSISTANT PUBLIC DEFENDER Impressions 12/17/2010 8:31 AM ASSISTANT PUBLIC DEFENDER RIGHT TUNNEL CATHETER REVISION ?? Dec 16, 2010 2:27:00 PM HISTORY: ??45-year-old male with existin g right internal jugular tunneled catheter placement. The current catheter is malfunctioning. Therefore, request made for replacement. TECHNIQUE: [facility] and informed consent obtained via patient's family member. The existing tunnel catheter and surroun ding skin were prepped and draped in standard sterile fashion. 1% l idocaine was used for local anesthesia. Initial spot fluoroscopic im age obtained. With sharp and blunt dissection, the existing tunneled catheter cuff was freed from the surrounding soft tissue. Stiff-angle d Glidewires were advanced through each of the lumens and placed in the inferior vena cava. The existing tunneled catheter was removed a nd a new 28 cm tunneled hemodialysis catheter was placed through the existing subcutaneous tract. Tip of the catheter is in the pro ximal right atrium. The catheter aspirated well and was secured to the patient's skin surface with 2-0 silk suture. Please note that P rolene suture was removed from a keloid from prior catheter placement. Patient tolerated the procedure well without apparent complica tion. The new catheter was heparinized. Sedation: 1.5 mg IV Versed, 75 mcg IV fe ntanyl Sedation time: 15 minutes Please note the above medications were a dministered by the interventional radiology staff under my direct supervision. Fluoroscopic time: 0.9 minutes Contrast: None Local anesthetic: 13 mL of 1% lidocaine. FINDINGS: Initial spot fluoroscopic imag e demonstrates a relatively long subcutaneous tract overlying the ri ght clavicle. The catheter tip is either within the right innominate ve in or proximal superior vena cava, relatively short. Therefore, a new 28 cm tunneled hemodialysis catheter was advanced through the existi ng subcutaneous tract until tip in the distal right atrium, confirme d with fluoroscopic imaging. IMPRESSION: Successful conversion of exi sting tunneled 23 cm hemodialysis catheter, replaced with a 2 8 cm hemodialysis catheter through the existing tract. The catheter may be used immediately. G Jagdeep Holman MD IMG IR ORDERABLES documented in this encounter Visit Diagnoses Not on filedocumented in this encounter
--- OUTSIDE RECORDS SUMMARY | 2022-09-01 20:26 | XMS_ITS | Encounter Summary ---
:1965 Author Organization [place] Address [address] [facility] [place] [address] Care Team Providers Name Role Phone Preet Huff Hans Primary Care Provider Encounter Details Date Type Department Care Team Description 09/23/2011 Hospital Encounter [facility] Min Saravia yue Oviedo MD [address] [place] [id number] Renal failure, [facility], Tom Andrade MD [facility] [address] [place], [place] [phone] unspecified [address] [place] [id number] Social History Tobacco Use Types Packs/Day Years Used Date Smoking Tobacco: Never Assessed Sex Assigned at Date Recorded Not on file documented as of this encounter Medications at Time of Discharge Medication Sig Dispensed Refills Start Date End Date b phjptcl-O-elden acid Take 1 capsule by 0 03/04/2016 [...] Priority Date/Time Associated Diagnosis Comme nts VUS ART-VENOUS Routine 09/23/2011 3:18 PM Renal failure, Re sults for this DIALYSIS GRAFT INSIDE BARREL LATHE OPERATOR unspecified procedure are in the results section. documented in this encounter Results US art-venous dialysis graft (vascular lab) (09/23/2011 3:18 PM INSIDE BARREL LATHE OPERATOR) Anatomical Region Laterality Modality Ultrasound Specimen (Source) Anatomical Collection Method Collection Time Re ceived Time Location / / Volume Laterality 09/23/2011 3:18 PM INSIDE BARREL LATHE OPERATOR Impressions 09/24/2011 6:28 PM INSIDE BARREL LATHE OPERATOR [facility] ARTERIAL VE NOUS DIALYSIS GRAFT ??Sep 23, 2011 3:18:00 PM HISTORY: 46-year-old male with right rad ial to brachial-basilic surgical fistula. COMPARISON: June 24, 2011. FINDINGS: Inflow brachial artery is mccauley nt. Relatively acute angle at the arteriovenous anastomotic site. Appr oximately 2 cm beyond the anastomosis, there is focal stenosis michelle suring 2.7 mm with considerably elevated velocity of 898/31 3 cm/second, previously 4.2 mm. The stenosis is for a length of 2.67 cm. Additionally, in the upper arm, diameter narrowing of 2.1 mm with velocity elevation of 711/311 cm/second corresponding to consi derable stenosis. IMPRESSION: Two areas of stenosis in the upper arm fistula, the first just beyond the arteriovenous anastomosi s and the second in the upper arm. Both are new/considerably progresse d since previous exam. Jaxon Saravia MD IMG US ORDERABLES documented in this encounter Visit Diagnoses Diagnosis Renal failure, unspecified documented in this encounter Care Teams Clinical Medical Transcriptionist Relationship Specialty Start Date End Date Preet Huff PCP - General 06/24/11 documented as of this encounter
--- OUTSIDE RECORDS SUMMARY | 2022-09-01 20:26 | XMS_ITS | Encounter Summary ---
:1965 Author Organization [place] Address [address] [place] [address]. [place] [address] Care Team Providers Name Role Phone Unavailable Primary Care Provider Unavailable Encounter Details Date Type Department Care Team Description 12/16/2010 Historic Results [facility] Wojciech Holman, [place] [facility] [address] [facility] [place] [address] [address] [facility] [phone] [address] [place], [place] [address] (Wo rk) Social History Tobacco Use Types Packs/Day Years Used Date Smoking Tobacco: Never Assessed Sex Assigned at Date Recorded Not on file documented as of this encounter Plan of Treatment Not on filedocumented as of this encounter Procedures Procedure Name Priority Date/Time Associated Diagnosis Comme nts GLUCOSE BY METER Routine 12/16/2010 12:26 PM Resu lts for this HEADSTART TEACHER procedure are i n the results section. documented in this encounter Results Glucose by meter (12/16/2010 12:26 PM HEADSTART TEACHER) P athologist Signature Glucose 81 60 - 99 [place] mg/dL Specimen Anatomical Collection Method Collection Time Receive d Time (Source) Location / / Volume Laterality 12/16/2010 12:26 12/17/2010 2:40 PM HEADSTART TEACHER AM HEADSTART TEACHER G Jagdeep [facility] Performing Organization Address City/State/ZIP Code Phon e Number [place] documented in this encounter Visit Diagnoses Not on filedocumented in this encounter
--- OUTSIDE RECORDS SUMMARY | 2022-09-01 20:26 | XMS_ITS | Encounter Summary ---
:1965 Author Organization [place] Address [address] [facility] [place] [address] Care Team Providers Name Role Phone Unavailable Primary Care Provider Unavailable Encounter Details Date Type Department Care Team Description 01/15/2011 Hospital Laboratory [facility] MD Preet Results [address] [place] [address] (Wo rk) Social History Tobacco Use Types Packs/Day Years Used Date Smoking Tobacco: Never Assessed Sex Assigned at Date Recorded Not on file documented as of this encounter Plan of Treatment Not on filedocumented as of this encounter Procedures Procedure Name Priority Date/Time Associated Diagnosis Comme nts GLUCOSE BY METER Routine 01/15/2011 2:33 PM Resul ts for this CDT procedure are i n the results section. GLUCOSE BY METER Routine 01/15/2011 11:13 AM Resu lts for this CDT procedure are i n the results section. ELECTROLYTE PANEL Routine 01/15/2011 11:08 AM Res ults for this CDT procedure are i n the results section. HEMOGLOBIN Routine 01/15/2011 11:08 AM Results for this CDT procedure are i n the results section. documented in this encounter Results Glucose by meter (01/15/2011 2:33 PM CDT) P athologist Signature Glucose 76 60 - 99 [facility] mg/dL HOSPITAL LAB Specimen Anatomical Collection Method Collection Time Receive d Time (Source) Location / / Volume Laterality 01/15/2011 2:33 PM 1 2:45 CDT PM CDT Jaxon DEAN - DAVID POCT Performing Organization Address City/State/ZIP Code Phon e Number M [facility] [address] [place], [place] [address] [facility] Glucose by meter (01/15/2011 11:13 AM CDT) P athologist Signature Glucose 78 60 - 99 [place] mg/dL [facility] Specimen Anatomical Collection Method Collection Time Receive d Time (Source) Location / / Volume Laterality 01/15/2011 11:13 01/18/2011 5:30 AM CDT AM CDT Jaxon DEAN - DAVID POCT Performing Organization Address City/State/ZIP Code Phon e Number M [facility] [address] [place] [address] [phone] [facility] (ABNORMAL) Hemoglobin (01/15/2011 11:08 AM CDT) athologist Signature Hemoglobin 9.8 (L) 13.3 - 17.7 [place] g/dL [facility] Specimen Anatomical Collection Method Collection Time Receive d Time (Source) Location / / Volume Laterality 01/15/2011 11:08 01/15/2011 AM CDT 11:14 AM CDT Jaxon Saravia MD LAB - BLOOD ORDERABLES Performing Organization Address City/State/ZIP Code Phon e Number M [facility] [address] [place] [address] [facility] Electrolyte panel (01/15/2011 11:08 AM CDT) P athologist Signature Sodium 138 133 - 144 [place] mmol/L [facility] Potassium 4.8 3.4 - 5.3 [place] mmol/L [facility] Chloride 97 94 - 109 [place] mmol/L [facility] Carbon Dioxide 32 20 - 32 [place] mmol/L [facility] Anion Gap 8 6 - 17 [place] mmol/L [facility] Specimen Anatomical Collection Method Collection Time Receive d Time (Source) Location / / Volume Laterality 01/15/2011 11:08 01/15/2011 AM CDT 11:14 AM CDT Jaxon Saravia MD LAB - BLOOD ORDERABLES Performing Organization Address City/State/ZIP Code Phon e Number M [facility] [address] [place] [phone] [facility] documented in this encounter Visit Diagnoses Not on filedocumented in this encounter
--- OUTSIDE RECORDS SUMMARY | 2022-09-01 20:26 | XMS_ITS | Encounter Summary ---
:1965 Author Organization [place] Address [facility] [place] [address] Care Team Providers Name Role Phone Preet Huff Primary Care Provider Reason for Visit Auth/Cert - Closed Specialty Diagnoses / Procedures Referred By Contact Refer red To Contact Surgery Diagnoses RENAL FAILURE Sh Periop Services Procedures CREATE FISTULA ARTERIOVENOUS UPPER EXTREMITY [address] [place] [phone] Phone: Referral ID Status Reason Start Date Expiration Date Visits Requ ested Visits Authorized [id number] Closed 10/14/2011 04/11/2012 1 1 Encounter Details Date Type Department Care Team Description 10/20/2011 Hospital Encounter [facility] Rober Saravia A- V fistula (H) [facility] MD Preet [address] [place] [phone] [address] [place] [phone] Social History Tobacco Use Types Packs/Day Years Used Date Smoking Tobacco: Never Alcohol Use Standard Drinks/Week Comments No 0 (1 standard drink = 0.6 oz pure alcoho l) Sex Assigned at Date Recorded Not on file documented as of this encounter Last Filed Vital Signs Vital Sign Reading Time Taken Comments Blood Pressure 132/85 10/20/2011 8:45 PM GUN TESTER Pulse 74 10/20/2011 8:10 PM GUN TESTER Temperature 36.5 ??C (97.7 ??F) 10/20/2011 8:10 PM GUN TESTER Respiratory Rate 20 10/20/2011 8:45 PM GUN TESTER Oxygen Saturation 99% 10/20/2011 8:45 PM GUN TESTER Inhaled Oxygen Concentration - - Weight 76.3 kg (168 lb 3.4 oz) 10/20/2011 2:30 PM GUN TESTER Height 167 cm (5' 5.75) 10/20/2011 11:42 AM GUN TESTER Body Mass Index 27.36 10/20/2011 11:42 AM GUN TESTER documented in this encounter Discharge Instructions Discharge [...] not make important decisions for 24 hours. TESTER documented in this encounter Medications at Time of Discharge Medication Sig Dispensed Refills Start Date End Date b ddshxci-V-ldqyq acid Take 1 capsule by 0 03/04/2016 [...] Rober Saravia MD - 10/31/2011 6:44 PM GUN TESTER TESTER Hesham Madera MD - 10/20/2011 8:12 PM CST Surgery Ok to DC to home if transportation available, if not admit to observation. Hesham Madera MD Surgery Resident Pager [phone] TESTER Wjociech Holman MD - 10/20/2011 3:18 PM CST Inpatient Dialysis Progress Note Assessment and Plan: 1. ESRD 2. Hyperkalemia 3. Access issues 4. Anemia 5. Secondary Hyperparathyroidism Seen semi-urgently on dialysis for increased K Interval History: Dialyzed yesterday at [facility] Scheduled for outpatient access revision but [...] 9.8* 13.3-17.7 (g/dL) Final Wojciech Holman MD TESTER Roberta Schmitz RN - 10/20/2011 2:59 PM [...] to RN. Ariadne Schmitz RN [facility] TESTER documented in this encounter H&P Notes Rober Saravia MD - 10/19/2011 7:06 AM GUN TESTER TESTER documented in this encounter Nursing Notes Dannielle Davis RN - 10/20/2011 8:29 PM CST Pt informed he will have dialysis tomorrow TESTER America Rodriguez RN - 10/20/2011 2:10 PM CST Report called to dialysis nurse, patient transferred to dialysis unit by wheelchair with mother, clothes and chart. TESTER America Rodriguez RN - 10/20/2011 1:40 PM CST Serum potassium high. Dr. Saravia arranging dialysis to be done today before surgery. TESTER America Rodriguez RN - 10/20/2011 11:47 AM CST ACCUCHECK 79 AT 1145. PATIENT ANSWERS SOME QUESTIONS APPROPRIATELY. PATIENT'S AUNT IS HIS GOL[employer]UB WEIGHTER. TESTER documented in this encounter OR Notes OR Anesthesia - Rober Saravia MD - 11/18/2011 11:48 AM GUN TESTER TESTER documented in this encounter Miscellaneous Notes Brief Op Note - Hesham Madera MD - 10/20/2011 8:11 PM CST Post Operative Note Preoperative Diagnosis: ESRD, AVF outflow stenosis Postoperative Diagnosis: Same Procedure: Bovine Patch AVF Stenosis Surgeon: Rober Saravia MD Electrical Controls Designer: Hesham Madera MD Anesthesia: Local anesthesia with sedation EBL: 20ml Specimens: None Hesham Madera MD Surgery Resident Pager [phone] TESTER Op Note - Rober Saravia MD - 10/20/2011 8:07 PM CST PREOPERATIVE DIAGNOSIS: Outflow stenosis, right upper arm radial to basilic transposition arteriovenous fistula. POSTOPERATIVE DIAGNOSIS: Outflow stenosis, right upper arm radial to basilic transposition arteriovenous fistula. PROCEDURES: 1. Mobilization of outflow stenotic area of right upper arm arteriovenous fistula. 2. Bovine patch angioplasty to stenotic area (4 cm in length). SURGEON: Rober Saravia MD OIL HEAT TECHNICIAN: Hesham Madera MD [facility] Septic Pump Truck Driver ANESTHESIA: Local with intravenous supplementation. PREOPERATIVE MEDICATIONS: Ancef 1 gm IV. INDICATIONS: Julio Cesar Sandhu is a 38-year-old patient who is dialyzing at the [place] [facility] andhad a right upper arm transposition [...] Name: JULIO CESAR SANDHU MRN: [id number] Account: [id number] : 1965 Procedure Date: 10/20/2011 Document: [id number] TESTER documented in this encounter Plan of Treatment Not on filedocumented as of this encounter Procedures Procedure Name Priority Date/Time Associated Comments Diagnosis GLUCOSE BY METER Routine 10/20/2011 8:16 PM Resul ts for this GUN TESTER procedure are i n the results section. GLUCOSE BY METER Routine 10/20/2011 6:46 PM Resul ts for this GUN TESTER procedure are i n the results section. CREATION, 10/20/2011 5:38 PM RENAL FAILURE ARTERIOVENOUS FISTULA, GUN TESTER UPPER EXTREMITY POTASSIUM Routine 10/20/2011 3:00 PM Results f or this GUN TESTER procedure are i n the results section. POTASSIUM STAT 10/20/2011 12:35 Results for this PM GUN TESTER procedure are i n the results section. GLUCOSE BY METER Routine 10/20/2011 11:40 Results for this AM GUN TESTER procedure are i n the results section. INR STAT 10/20/2011 11:40 Results for this AM GUN TESTER procedure are i n the results section. POTASSIUM STAT 10/20/2011 11:40 Results for this AM GUN TESTER procedure are i n the results section. CREATININE STAT 10/20/2011 11:40 Results for this AM GUN TESTER procedure are i n the results section. documented in this encounter Results Glucose by meter (10/20/2011 8:16 PM GUN TESTER) P athologist Signature Glucose 77 60 - 99 POINT OF CARE mg/dL TEST, GLUCOSE Specimen Anatomical Collection Method Collection Time Receive d Time (Source) Location / / Volume Laterality 10/20/2011 8:16 PM 2 8:20 GUN TESTER PM GUN TESTER Rober Saravia MD LAB - BEAKER POCT Performing Organization Address City/[facility]/ZIP Code Phon e Number FV POINT OF CARE TEST, GLUCOSE POINT OF CARE TEST, GLUCOSE Glucose by meter (10/20/2011 6:46 PM GUN TESTER) P athologist Signature Glucose 80 60 - 99 POINT OF CARE mg/dL TEST, GLUCOSE Specimen Anatomical Collection Method Collection Time Receive d Time (Source) Location / / Volume Laterality 10/20/2011 6:46 PM 2 6:40 GUN TESTER AM GUN TESTER Rober DEAN - BEAKER POCT Performing Organization Address City/[facility]/ZIP Code Phon e Number FV POINT OF CARE TEST, GLUCOSE POINT OF CARE TEST, GLUCOSE Potassium (10/20/2011 3:00 PM GUN TESTER) athologist Signature Potassium 5.1 3.4 - 5.3 [place] mmol/L [facility] LAB Specimen Anatomical Collection Method Collection Time Receive d Time (Source) Location / / Volume Laterality 10/20/2011 3:00 PM 2 3:10 GUN TESTER PM GUN TESTER Rober Saravia MD LAB - BLOOD ORDERABLES Performing Organization Address City/[facility]/ZIP Code Phon e Number M [facility] [address] [place] [address] [facility] (ABNORMAL) Potassium (10/20/2011 12:35 PM GUN TESTER) P athologist Signature Potassium 6.8 (HH) 3.4 - 5.3 [place] mmol/L [facility] LAB Comment: Critical Value called to and read back shireen POOL IN SDS AT 1250 Specimen Anatomical Collection Method Collection Time Receive d Time (Source) Location / / Volume Laterality Blood specimen 10/20/2011 12:35 2 (specimen) PM GUN TESTER 12:36 PM GUN TESTER Rober Saravia MD LAB - BLOOD ORDERABLES Performing Organization Address City/State/ZIP Code Phon e Number M [facility] [address] [place] [phone] [facility] Glucose by meter (10/20/2011 11:40 AM GUN TESTER) P athologist Signature Glucose 79 60 - 99 POINT OF CARE mg/dL TEST, GLUCOSE Specimen Anatomical Collection Method Collection Time Receive d Time (Source) Location / / Volume Laterality 10/20/2011 11:40 10/20/2011 AM GUN TESTER 12:05 PM GUN TESTER Rober Saravia MD LAB - BEAKER POCT Performing Organization Address City/State/ZIP Code Phon e Number FV POINT OF CARE TEST, GLUCOSE POINT OF CARE TEST, GLUCOSE (ABNORMAL) Creatinine (10/20/2011 11:40 AM GUN TESTER) Patholo gist Method Time Signature Creatinine 13.23 (H) 0.66 - [place] 1.25 mg/dL [facility] LAB GFR Estimate 4 (L) >60 [place] mL/min/1.[address] LAB GFR Estimate If 5 (L) >60 [place] Black mL/min/1.[address] LAB Specimen Anatomical Collection Method Collection Time Receive d Time (Source) Location / / Volume Laterality Blood specimen 10/20/2011 11:40 2 (specimen) AM GUN TESTER 11:54 AM GUN TESTER Raúl Montes MD LAB - BLOOD ORDERABLES Performing Organization Address City/[facility]/ZIP Code Phon e Number M [facility] [address] [place] [phone] [facility] LAB (ABNORMAL) Potassium (10/20/2011 11:40 AM GUN TESTER) athologist Signature Potassium 6.7 (HH) 3.4 - 5.3 [place] mmol/L [facility] LAB Comment: Critical Value called to and read back oct SDS 1222 Specimen Anatomical Collection Method Collection Time Receive d Time (Source) Location / / Volume Laterality Blood specimen 10/20/2011 11:40 2 (specimen) AM GUN TESTER 11:54 AM GUN TESTER Raúl Montes MD LAB - BLOOD ORDERABLES Performing Organization Address City/State/ZIP Code Phon e Number [place] [facility] [address] [place] [address] [facility] LAB (ABNORMAL) INR (10/20/2011 11:40 AM GUN TESTER) P athologist Signature INR 1.41 (H) 0.86 - 1.14 [facility] Specimen Anatomical Collection Method Collection Time Receive d Time (Source) Location / / Volume Laterality Blood specimen 10/20/2011 11:40 2 (specimen) AM GUN TESTER 11:54 AM GUN TESTER Raúl Montes MD LAB - BLOOD ORDERABLES Performing Organization Address City/[facility]/ZIP Code Phon e Number [place] [facility] [address] [place] [phone] [facility] documented in this encounter Visit Diagnoses Diagnosis A-V fistula (H) Arteriovenous fistula, acquired documented in this encounter Active and Recently Administered Medications Times are shown in GUN TESTER. PRN Medication Order 10/18/2011 10/19/2011 10/20/2011 BUPivacaine [...] Intra-procedure documented in this encounter Care Teams Instrumentation Engineer Relationship Specialty Start Date End Date Preet Huff PCP - General 06/24/11 documented as of this encounter
--- OUTSIDE RECORDS SUMMARY | 2022-09-01 20:26 | XMS_ITS | Encounter Summary ---
:1965 Author Organization [place] Address [address] [facility] [place] [address] Care Team Providers Name Role Phone Unavailable Primary Care Provider Unavailable Encounter Details Date Type Department Care Team Description 03/03/2011 Operative Report [facility] Jaxon Buenrostro (Marking Devices Assembler) [facility] MD Preet Results [address] [facility] [address] [place] [address] (Wo rk) Social History Tobacco Use Types Packs/Day Years Used Date Smoking Tobacco: Never Assessed Sex Assigned at Date Recorded Not on file documented as of this encounter Progress Notes Jaxon Buenrostro - 03/10/2011 8:24 PM CDT FINAL [employer] Former: Martin Mckinnon MD ([facility] [place] Surgery Resident) PREOPERATIVE DIAGNOSIS: Failed left forearm arteriovenous fistula. POSTOPERATIVE DIAGNOSIS: Failed left forearm arteriovenous fistula. PROCEDURE: First stage right upper arm proximal radial to brachial arteriovenous fistula. INDICATIONS: Julio Cesar Victor is on chronic hemodialysis via a tunneled catheter. We created a left distal radiocephalic arteriovenous fistula. However, it was noted shortly thereafter to be occluded. It was felt that a new fistula should be placed. The right jugular tunnel catheter has also failed to function and requested this be changed. The patient had a new tunneled catheter replaced in Interventional Radiology. We did map the veins in his left arm and they were quite small with the cephalic being no more than 2 mm and the upper arm basilic 3.3 mm. With a duplex ultrasound, I did identify the right brachial vein that appeared to be somewhat larger in size and did extend down to the antecubital level. It was felt that a first stage upper arm fistula would be indicated to see if this vein will dilate. Right upper arm cephalic vein is too small to use also. DESCRIPTION OF PROCEDURE: The patient was brought to the operating room and the right arm was prepped in the usual fashion. 1% lidocaine with bicarbonate was used for local field block anesthetic. An oblique incision was made in the antecubital level. Dissection was carried down. We partially divided the brachial aponeurosis. The patient had higher branch of the radial, ulnar artery. We dissected free the radial artery. This was a small but disease-free vessel. The adjacent brachial vein was the largest vein in the antecubital level and this was dissected free, ligating several branches. 3000 units of intravenous heparin were given. The distal end of the vein was ligated with 3-0 silk suture and transected and spatulated via a side branch. Microvascular bulldog clamp was applied. This vein measured slightly over 3 mm in diameter. Vessel loops were tightened around the radial artery and an 8 mm longitudinal arteriotomy was made. The artery accepted a 2.5 mm dilator but was no larger. An end-to-side anastomosis was created with running 7-0 Prolene suture and loupe magnification. With release of the vessel loops and padded vascular bulldog, we had a good strong pulse and Dopplersignal within the outflow brachial vein. His hand was warm and pink with adequate Doppler flow. Wound was infiltrated with 0.5% Marcaine for postop analgesia. Subcutaneous tissue was closed with interrupted 3-0 Vicryl and the skin was closed with 5-0 Monocryl in subcuticular fashion followed by Steri-Strips, gauze and Kerlix roll. The patient tolerated the procedure well. Estimated blood loss less than 5 cc. Complications: None. The patient has very small arteries and veins. We will see if the brachial vein will dilate to make asecond stage transposition worthwhile. This has been discussed with the patient's mother. We will see him in 4 weeks for followup duplex ultrasound to see if any enlargement of the veins has occurred. Electronically signed on 03/10/2011 20:24 by JAXON BUENROSTRO MD MT: [id number] Name: JULIO CESAR VICTOR Account: [id number] : 1965 Procedure Date: 03/03/2011 Document: [id number] cc: [facility] Mason MD [facility] documented in this encounter Plan of Treatment Not on filedocumented as of this encounter Visit Diagnoses Not on filedocumented in this encounter
--- OUTSIDE RECORDS SUMMARY | 2022-09-01 20:26 | XMS_ITS | Encounter Summary ---
:1965 Author Organization [place] Address [address] [facility] [place] [address] Care Team Providers Name Role Phone Unavailable Primary Care Provider Unavailable Encounter Details Date Type Department Care Team Description 02/22/[address] [facility] Results MD Maria Del Carmen INTERMED CONSULT ANTS [address] [facility] [address] [place] [address] (Wo rk) Social History Tobacco Use Types Packs/Day Years Used Date Smoking Tobacco: Never Assessed Sex Assigned at Date Recorded Not on file documented as of this encounter Plan of Treatment Not on filedocumented as of this encounter Procedures Procedure Name Priority Date/Time Associated Diagnosis Comme nts IR CVC TUNNEL Routine 02/22/2011 11:56 AM Results for this REVISION RIGHT CDT procedure are in the results section. documented in this encounter Results INT Tunnel catheter revision rt (02/22/2011 11:56 AM CDT) Anatomical Region Laterality Modality Chest Other Specimen (Source) Anatomical Collection Method Collection Time Re ceived Time Location / / Volume Laterality 02/22/2011 11:56 AM CDT Impressions 03/01/2011 7:59 AM CDT TUNNEL CATHETER REVISION RIGHT February 22, 011 11:56 AM HISTORY: Replacement of pulled out right tunneled dialysis catheter. Fell out Tuesday. Will return to [facility]. COMPARISON: 12/16/2010. DESCRIPTION OF PROCEDURE: After obtainin g informed consent, the patient was placed in a supine position on the fluoroscopy table. The right chest and external portions of exi sting tunnel dialysis catheter were prepped and draped in usual sterile manner. 1% lidocaine was injected for local anesthesia. Prelimina ry fluoroscopic image showed that the catheter had pulled superiorly when compared to the previous exam. The tip of the catheter now lay in the low superior vena cava. A stiff guidewire was passed through the c atheter into the inferior vena cava. Existing catheter was removed. A n ew 28 cm Palindrome catheter was then deployed. The tip was positione d in the low right atrium. Both ports were aspirated, flushed with saline, and heparin lock. Fluoroscopic image was saved to document catheter position. The patient tolerated the procedure well . There were no immediate postprocedure complications. The patient 's vital signs were monitored by radiology nursing staff under my supe rvision and remained stable throughout the study. MEDICATIONS: Versed 1.5 mg, fentanyl 75 mcg, Ancef 1 gram. Sedation time: 18 minutes. Fluoroscopy time: 1.5 minutes. Local anesthetic: 10 cc. IMPRESSION: Tunneled dialysis catheter r eplaced as described above. Steven MAY IR ORDERABLES documented in this encounter Visit Diagnoses Not on filedocumented in this encounter
--- OUTSIDE RECORDS SUMMARY | 2022-09-01 20:26 | XMS_ITS | Encounter Summary ---
:1965 Author Organization [place] Address [address] [place] [address]. [place] [address] Care Team Providers Name Role Phone Preet Huff Primary Care Provider Encounter Details Date Type Department Care Team Description 07/19/2011 Orders Only [facility] Carolyn Garcia, Acute kidney failure [facility] [address] RN NEC (Primary Dx) [address] [place] [address] Social History Tobacco Use Types Packs/Day Years Used Date Smoking Tobacco: Never Assessed Sex Assigned at Date Recorded Not on file documented as of this encounter Plan of Treatment Not on filedocumented as of this encounter Visit Diagnoses Diagnosis Acute kidney failure with other specifie d pathological lesion in kidney - Primary documented in this encounter Care Teams Pie Topper Relationship Specialty Start Date End Date Preet Huff PCP - General 06/24/11 documented as of this encounter
--- OUTSIDE RECORDS SUMMARY | 2022-09-01 20:26 | XMS_ITS | Encounter Summary ---
:1965 Author Organization [place] Address [address] [facility] [place] [address] Care Team Providers Name Role Phone Preet Huff Primary Care Provider Reason for Visit Surgical Procedure Outpatient (Routine) - Closed Specialty Diagnoses / Procedures Referred By Contact Refer red To Contact Surgery Diagnoses RENAL FAILURE Jaxon Buenrostro, Jaxon Buenrostro, Procedures 2ND STAGE RIGHT UPPER EXTREMITY BRACHIAL TO BASILIC AV FISTULA MD HARPER [address] [place] [address] [place] [address] Fax: Referral ID Status Reason Start Date Expiration Date Visits Requ ested Visits Authorized [id number] Closed 07/07/2011 01/03/2012 1 1 Encounter Details Date Type Department Care Team Description 07/07/2011 Office Visit SX SURGERY CASES Jaxon Buenrostro MD [address] [place] [address] ERRONEOUS Resident, Surg Cons ENCOUNTER--DISREGARD (Primary Dx) Social History Tobacco Use Types Packs/Day Years Used Date Smoking Tobacco: Never Assessed Sex Assigned at Date Recorded Not on file documented as of this encounter Progress Notes Jaxon Buenrostro MD - 07/11/2011 10:40 PM CDT FINAL 1st Mannequin Wig Maker: Graham Adhikari MD ([facility] Surgery Resident) PREOPERATIVE DIAGNOSIS: Chronic renal failure, in need of permanent hemodialysis access. POSTOPERATIVE DIAGNOSIS: Chronic renal failure, in need of permanent hemodialysis access. PROCEDURES: 1. Second stage transposition, right upper arm proximal radial to brachial arteriovenous fistula. 2.Excision perianastomotic hypertrophied valve leaflet. ANESTHESIA: Local with intravenous supplementation. PREOPERATIVE MEDICATIONS: Ancef 1 gm IV. INDICATIONS: Julio Cesar Victor is a 46-year-old patient who is on chronic hemodialysis. He has had failed accesses in his left arm. He is noted to have very small veins in his right arm. We performed a first stage right upper arm proximal radial to brachial arteriovenous fistula on 03/03/2011. On a recent duplex ultrasound, the vein is dilated very nicely being greater than 6 mm in diameter throughout most of its length. The anastomosis itself was widely patent, though there was a markedly hypertrophiedvalve leaflet 8 mm from the anastomosis but still has a residual luminal diameter 4.2 mm. It was felt that excision of this would be beneficial also to improve flow dynamics. DESCRIPTION OF PROCEDURE: The patient was brought to the operating room. The right arm and axillary area were prepped and draped in the usual fashion. 1% lidocaine with bicarbonate was used for local field block anesthetic followed by 0.5% Marcaine. Incision was made from the previous antecubital siteup to the axilla. Dissection was carried down to identify the brachial vein. Somewhat surprisingly in the upper arm where there had not been any surgical intervention, there was a fair amount of scar tissue appreciated. This appeared to be more inflammatory in nature. The outflow brachial vein was of excellent quality and caliber throughout its entire length. This was very cautiously dissected free, cauterizing a good portion of this and ligating all side branches with 4-0 and 3-0 silk suture until the vein was mobilized from the antecubital level all the way up to the axilla. The brachial artery itself was unremarkable with no disease. We dissected down close to the anastomosis where there was a significant amount of scar tissue. There were several competing branches at this level which were ligated with 3-0 silk suture and divided. One could feel the area of the hypertrophied valve leaflet andwith some tedious dissection, we were able to dissect distally enough to allow placement of a small vascular clamp. ARTERIOVENOUS TRANSPOSITION: Intravenous heparin 3000 units were given. After 5 minutes, a subcutaneous tunnel was created from the elbow region down to the axilla. In the proximal one-quater of the arm we did penetrate through the fascia with the transposition tunnel. This was all very superficial with no encroachment on the dimitri. We applied a vascular clamp to the perianastomotic area just before the hypertrophied valve leaflet and transected our vein graft. This was irrigated with heparinized saline solution with no difficulty. This was then brought from its deep position to the subcutaneous tissue and positioned with a vascular clamp. Microvascular bulldog clamp was applied and this was spatulated. EXCISION VALVE LEAFLET: We then spatulated over the inflow portion of the fistula. There was a markedly hypertrophied valve leaflet which was excised with a Estevez scissors. We opened up the anteriorportion of the fistula at this level and performed an end-to-end spatulated anastomosis with running7-0 Prolene suture and loupe magnification. With release of the vascular clamp, this dilated very nicely and had excellent palpable pulse and thrill throughout the entire fistula into the axilla. Good hemostasis was noted. The wounds were closed with running 3-0 Vicryl suture and the fascia leaving this widely opened in the axillary region. Subcutaneous tissue was closed with interrupted and running 3-0 Vicryl suture andthe skin was closed with 5-0 Monocryl in subcuticular fashion followed by Steri-Strips, gauze and Uriel roll. The patient tolerated the procedure well. Estimated blood loss less than 50 cc. COMPLICATIONS: None. The patient has excellent arterial inflow via the radial artery with a strong distal radial pulse following the procedure. No evidence of clinical steal. We excised the hypertrophied valve leaflet to improve the flow dynamics and transposed the well dilated brachial vein to the subcutaneous tissue over the biceps. The patient will continue his exercise and will see him in 4 weeks for followup duplex ultrasound and hopefully at that time we can transition him off his tunnel catheter to the fistula. Electronically signed on 07/11/2011 22:39 by JAXON BUENROSTRO MD MT: [id number] Name: JULIO CESAR VICTOR MRN: [id number] Account: [id number] : 1965 Procedure Date: 07/07/2011 Document: [id number] documented in this encounter Plan of Treatment Not on filedocumented as of this encounter Visit Diagnoses Diagnosis ERRONEOUS ENCOUNTER--DISREGARD - Primary documented in this encounter Care Teams Clam Shovel Operator Relationship Specialty Start Date End Date Preet Huff PCP - General 06/24/11 documented as of this encounter
--- OUTSIDE RECORDS SUMMARY | 2022-09-01 20:26 | XMS_ITS | Encounter Summary ---
:1965 Author Organization [place] Address [facility] [facility] [place] [address] Care Team Providers Name Role Phone Preet Huff Primary Care Provider Encounter Details Date Type Department Care Team Description 08/05/2011 Orders Only [facility] Jaxon Saravia Renal fa [place], [facility] MD Preet unspecified (Primary [address] [place] [address] [place] [address] [phone] Social History Tobacco Use Types Packs/Day Years Used Date Smoking Tobacco: Never Assessed Sex Assigned at Date Recorded Not on file documented as of this encounter Plan of Treatment Not on filedocumented as of this encounter Visit Diagnoses Diagnosis Renal failure, unspecified - Primary documented in this encounter Care Teams Capacity Planning Manager Relationship Specialty Start Date End Date Preet Huff PCP - General 06/24/11 documented as of this encounter
--- OUTSIDE RECORDS SUMMARY | 2022-09-01 20:26 | XMS_ITS | Encounter Summary ---
:1965 Author Organization [place] Address [address] [place] [id number] Care Team Providers Name Role Phone Unavailable Primary Care Provider Unavailable Encounter Details Date Type Department Care Team Description 01/15/2011 Results Only INTERFACED REPORT Unknown, Doctor, MD Social History Tobacco Use Types Packs/Day Years Used Date Smoking Tobacco: Never Assessed Sex Assigned at Date Recorded Not on file documented as of this encounter Plan of Treatment Not on filedocumented as of this encounter Procedures Procedure Name Priority Date/Time Associated Diagnosis Comme nts EKG 12-LEAD, Routine 01/15/2011 11:27 AM Results for this TRACING ONLY CDT procedure are i n the results section. documented in this encounter Results EKG 12-lead, tracing only (01/15/2011 11:27 AM CDT) Component Value Ref Range Test Analysis Performed Pathologis t Method Time At Signature Ventricular Rate 70 BPM RADIOLOGY RESULTS Atrial Rate 70 BPM RADIOLOGY RESULTS OR Interval 164 ms RADIOLOGY RESULTS QRS Duration 92 ms RADIOLOGY RESULTS QT 404 ms RADIOLOGY RESULTS QTc 436 ms RADIOLOGY RESULTS P [place] 68 degrees RADIOLOGY RESULTS R AXIS 49 degrees RADIOLOGY RESULTS T [place] 80 degrees RADIOLOGY RESULTS Interpretation Sinus rhythm RADIOLOGY ECG RESULTS Interpretation Septal infarct , RADIOLOG Y ECG age undetermined RESULTS Interpretation Abnormal ECG RADIOLOGY ECG RESULTS Interpretation No previous ECGs RADIOLOG Y ECG available RESULTS Interpretation Unconfirmed report - interpr etation of this ECG is computer generated - see RADIOLOGY ECG medical record for final interpretation RESULTS Specimen (Source) Anatomical Collection Method Collection Time Re ceived Time Location / / Volume Laterality 01/15/2011 11:27 AM CDT Doctor Unknown MD ECG ORDERABLES Performing Organization Address City/State/ZIP Code Phon e Number RADIOLOGY RESULTS documented in this encounter Visit Diagnoses Not on filedocumented in this encounter
== END 2022-09-01 20:08 | disposition home or self-care (01) ==
LOC: SLEEP 20:09
PROVIDERS: Visit Provider Internal Medicine
DX: G47.33 Obstructive sleep apnea (adult) (pediatric) (principal)
CPT/HCPCS: 95810

== ENCOUNTER 2024-02-23 19:12 | Outpatient (CLI) | payer MEDICARE, MEDICAID, SELFPAY ==
--- OUTSIDE RECORDS SUMMARY | 2024-02-29 09:46 | XMS_ITS | Clinical Summary ---
Author Organization [facility] Address [address] [facility] [place] [address] Care Team Providers Care Geotechnical Department Manager Name Role Phone Preet Huff Primary Care Provider [phone] Allergies Active Allergy Reactions Criticality Noted Date Comments Dihydroxyaluminum Aminoacetate Nausea Medium 07/16 GI bleeding Medications Medication Sig Dispensed Refills Start Date End Date Status BISACODYL PO Take 10 mg by mouth four times a week (Takes 2 x 5mg tablet = 10mg dose) Tuesday, Tuesday, Tuesday, and Tuesday Active atorvastatin (LIPITOR) 20 MG tabletIndications:M ixed hyperlipidemia Take 1 tablet (20 mg) by mouth every evening 30 tablet 3 12/19/2017 Active amLODIPine (NORVASC) 5 MG tablet Take 5 mg by mouth daily Active calcium acetate (PHOSLO) 667 MG CAPS capsule Take 1 capsule (667 mg)by mouth 3 times daily with meals Active calcium acetate (PHOSLO) 667 MG CAPS capsule Take 1 capsule (667 mg) once daily with a snack Active lisinopril (ZESTRIL) 40 MG tablet Take 20 mg by mouth every evening Active metoprolol tartrate (LOPRESSOR) 100 MG tablet Take 100 mg by mouth every morning Active warfarin ANTICOAGULANT (COUMADIN) 5 MG tablet Take 1 tablet (5 mg) by mouth Tuesday through Tuesday Active Cholecalciferol (VITAMIN D3 PO) Take 2,000 Units by mouth every evening 4 Discontinu ed(Med Rec(No AVS / No eCancel)) LISINOPRIL PO Take 40 mg by mouth daily (Takes 2 x 20mg tablet = 40mg ) 4 Discontinu ed(Med Rec(No AVS / No eCancel)) Calcium Acetate, Phos Binder, (CALCIUM ACETATE PO) Take 1,334 mg by mouth 3 times daily (with meals) Takes with meals (2 x 667mg tablet) 4 Discontinu ed(Med Rec(No AVS / No eCancel)) AMLODIPINE BESYLATE PO Take 10 mg by mouth four times a week On Non dialysis days which is MWFSun 4 Discontinu ed(Med Rec(No AVS / No eCancel)) METOPROLOL TARTRATE PO Take 100 mg by mouth 2 times daily Take on MWFSun, on Non-dialysis days 4 Discontinu ed(Med Rec(No AVS / No eCancel)) oxyCODONE IR (ROXICODONE) 5 MG tabletIndications:P ost-op pain Take 1-2 tablets (5-10 mg) by mouth every 4 hours as needed for other (pain control or improvement in physical function. Hold dose for analgesic side effects.) 30 tablet 12/19/2017 4 Discontinu ed(Med Rec(No AVS / No eCancel)) warfarin (COUMADIN) 4 MG tabletIndications:P carolannlem with dialysis access, subsequent encounter Take 1 tablet (4 mg) by mouth daily 30 tablet 1 12/19/2017 4 Discontinu ed(Med Rec(No AVS / No eCancel)) oxyCODONE IR (ROXICODONE) 5 MG tabletIndications:U lcer of heel and midfoot, unspecified laterality, with fat layer exposed (H) Take 1 tablet (5 mg) by mouth daily maximum 6 tablet(s) per day 30 tablet 12/29/2017 4 Discontinu ed(Med Rec(No AVS / No eCancel)) lactulose (CHRONULAC) 10 GM/15ML solution Take 15-60 mLs by mouth daily as needed for constipation 4 Discontinu ed(Med Rec(No AVS / No eCancel)) omeprazole (PRILOSEC) [address] capsule Take 20 mg by mouth daily 4 Discontinu ed(Med Rec(No AVS / No eCancel)) multivitamin RENAL (MULTIVITAMIN RENAL) 1 MG capsule Take 1 capsule by mouth daily 4 Discontinu ed(Med Rec(No AVS / No eCancel)) Active Problems Problem Noted Date Diagnosed Date ESRD on dialysis 02/24/2024 Altered mental status, unspe cified altered mental status type 02/24/2024 Gastrointestinal hemorrhage, unspecified gastrointestinal hemorrhage type 02/24/2024 Anemia, unspecified type 02/24/2024 Foot ulcer 01/23/2018 Foot ulcer, left 12/16/2017 [...] 08/01/2012 Hypertension 08/01/2012 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 Encounters Date Type Department Care Team Description 02/25/2024 2:50 PM CDT - 02/25/2024 3:25 PM CDT Surgery [facility] [place] [address] [place] [address] Momo Hercules MD Esophagoscopy, gastroscopy, duodenoscopy (EGD), combined 02/24/2024 9:38 AM CDT - 02/26/2024 3:30 PM CDT Hospital Encounter [facility] [address] [place] [address] Jae Noel MD Blomquist, Katherine, Anemia, unspecified type; ESRD on dialysis (H); Altered mental status, unspecified altered mental status type; Gastrointestinal hemorrhage, unspecified gastrointestinal hemorrhage type Discharge Disposition: Home or Self Care from Last 3 Months Immunizations Name Administration [...] file Gender Identity 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 Sexual Orientation Not on file Last Filed Vital Signs Vital Sign Reading Time Taken Comments Blood Pressure 129/53 02/26/2024 8:25 AM CDT Pulse 92 02/26/2024 8:25 AM CDT Temperature 36.4 ??C (97.6 ??F) 02/26/2024 8:25 AM CD T Respiratory Rate 20 02/26/2024 8:25 AM CDT Oxygen Saturation 100% 02/26/2024 8:25 AM CDT Inhaled Oxygen Concentration - - Weight 86.6 kg (190 lb 14.7 oz) 02/24/2024 1:53 PM CDT Height 162.6 cm (5' 4) 02/24/2024 1:53 PM CDT Body Mass Index 32.77 02/24/2024 1:53 PM CDT Plan of Treatment Health Maintenance Due Date Last Done Comments ADVANCE CARE PLANNING 1965 ANNUAL REVIEW OF HM ORDERS 1965 CT COLONOGRAPHY 1965 FLEX SIG 1965 PARATHYROID 1965 sDNA (Cologuard) 1965 HIV SCREENING 1978 MEDICARE ANNUAL WELLNESS VISIT 1981 ZOSTER IMMUNIZATION (1 of 2) 2013 LIPID 12/07/2018 12/07/2017 Pneumococcal Vaccine: Pediatrics (0 to 5 Years) and At-Risk Patients (6 to 64 Years) (3 of 3 - PPSV23 or PCV20) 03/14/2019 01/17/2019, 12/02/2015, 10/12/2010, Additional history exists DTAP/TDAP/TD IMMUNIZATION (2 - Td or Tdap) 10/21/2019 10/21/2009, 10/21/2009 RSV VACCINE ( & 60+) (1 - 1-dose 60+ series) 2023 COVID-19 Vaccine ( season) 2023 06/23/2022, 01/13/2022, 08/17/2021, Additional history exists HEPATITIS B IMMUNIZATION (10 of 10 - Risk Dialysis 4-dose series) 09/06/2023 09/06/2022, 11/07/2013, 09/25/2013, Additional history exists COLONOSCOPY 09/24/2023 09/24/2013, 09/24/2013 PHQ-2 (once per calendar year) 2023 01/15/2016 BMP 05/28/2024 02/26/2024, 02/07, 02/24/2024, Additional history exists INFLUENZA VACCINE (Season Ended) 2024 06/23/2022, 08/05/2021, 07/11/2020, Additional history exists HEMOGLOBIN 08/28/2024 02/26/2024, 02/07, 02/25/2024, Additional history exists COLORECTAL CANCER SCREENING 02/23/2025 FIT 02/23/2025 02/24/2024, 06/14/2014 GLUCOSE 02/25/2027 02/26/2024, 02/07, 02/24/2024, Additional history exists HEPATITIS C SCREENING Completed 01/04/2022 ALK PHOS Completed 02/24/2024, 12/16/2015 PHOSPHORUS Completed 02/26/2024, 10/10/2014, 06/17/2014, Additional history exists HPV IMMUNIZATION Aged Out No longer e [...] this topic Medical Devices Implanted Type Area Table Attendant Device Identifier Shelf Expiration Date Model / Serial / Lot Graft Patch Vasc Xenosure Biologic 0.8x08cm 0.8p8 Implanted:Qty: 1 on 12/16/2017 by Jaxon Saravia MD at [facility] Bone/Tis rocco/Biol ogic Left: Iliac/Fem orals LEMAITRE VASCULAR IN 06/06/2023 0.8P8 / / [id number] Graft Pericardium 8x0.8cm Vascu-Guard Implanted:Qty: 1 on 10/20/[address] [facility] Right: Arm [employer] 01/16/2016 [id number] / / [id number] Femoral Popliteal Artery Implanted:Qty: 1 on 05/03/2012 by Jaxon Saravia MD at [facility] Right: Groin 12/07/2021 [id number] / [id number] / Description:CADAVER FEMORAL ARTERY RINSED IN A AND B SOLUTION: A SOLUTION LOT #[id number] EXPIRATION DATE 01/09/2014 B SOLUTION LOT #[id number] EXPIRATION DATE 11/15/2013 Graft Propaten Taper [id number] Implanted:Qty: 1 on 08/09/2012 by Jaxon Saravia MD at [facility] Right: Leg 10/24/2015 [id number] / / [id number] Graft Propaten Taper [id number] Implanted:Qty: 1 on 06/20/2013 by Jaxon Saravia MD at [facility] Left: Groin [employer] 02/07/2017 [id number] / / [id number] Graft Pericardium 8x0.8cm Vascu-Guard Implanted:Qty: 1 on 05/08/2014 by Jaxon Saravia MD at [facility] Left: Leg [employer] 11/26/2018 [id number] / PN# [id number] / [id number] Procol Vascular Bioprosthesis Implanted:Qty: 1 on 07/02/2015 by Jaxon Saravia MD at [facility] Left: Groin 12/16/2018 [id number] -[id number] / [id number] / Procol Vascular Bioprosthesis Implanted:Qty: 1 on 08/13/2015 by Jaxon Saravia MD at [facility] Left: Groin 12/16/2018 [id number] -[id number] / [id number] / Graft Vasc Bioprosthesis Procol [id number] Implanted:Qty: 1 on 03/05/2016 by Jaxon Saravia MD at [facility] Left: Leg LEMA[employer]RE VASCULAR IN 02/03/2019 [id number] -[id number] / [id number] / Procedures Procedure Name Priority Date/Time Associated Diagnosis Comments HEPATITIS B SURFACE ANTIBODY Routine 02/26/2024 11:13 AM CDT INR STAT 02/26/2024 9:49 AM CDT RENAL PANEL Routine 02/26/2024 6:10 AM CDT CBC WITH PLATELETS Routine 02/26/2024 6: 10 AM CDT FERRITIN Add-On 02/26/2024 6:10 AM CDT IRON AND IRON BINDING CAPACITY Add-On 02/26/2024 6:[address] ABDOMEN PELVIS W CONTRAST Routine 02/25/2024 5:03 PM CDT UGI ENDOSCOPY DIAG W OR W/O BRUSH/WASH 02/25/2024 3:04 PM CDT Anemia UPPER GI ENDOSCOPY Routine 02/25/2024 3: 01 PM CDT HEMOGLOBIN Timed 02/25/2024 11:58 AM CDT INR Routine 02/25/2024 9:28 AM CDT HEPATITIS B SURFACE ANTIGEN Add-On 02/25/2024 6:45 AM CDT CBC WITH PLATELETS Routine 02/25/2024 6: 45 AM CDT BASIC METABOLIC PANEL Routine 02/25/2024 6:45 AM CDT HEMOGLOBIN Timed 02/25/2024 6:45 AM CDT TRANSFUSE RED BLOOD CELLS (UNIT) Routine 02/24/2024 9:57 PM CDT PREPARE RED BLOOD CELLS (UNIT) Routine 02/24/2024 9:17 PM CDT TRANSFUSE RED BLOOD CELLS (UNIT) Routine 02/24/2024 6:43 PM CDT PREPARE RED BLOOD CELLS (UNIT) Routine 02/24/2024 6:19 PM CDT HEMOGLOBIN Timed 02/24/2024 5:51 PM CDT TRANSFUSE RED BLOOD CELLS (UNIT) STAT 02/24/2024 12:04 PM CDT PREPARE RED BLOOD CELLS (UNIT) STAT 02/24/2024 11:35 AM CDT PREPARE RED BLOOD CELLS (UNIT) STAT 02/24/2024 11:35 AM CDT OCCULT BLOOD STOOL STAT 02/24/2024 11 :[address] HEAD W/O CONTRAST STAT 02/24/2024 10:42 AM CDT ISTAT GASES LACTATE VENOUS POCT STAT 02/24/2024 10:15 AM CDT EKG 12-LEAD, TRACING ONLY STAT 02/24/2024 10:12 AM CDT ABO/RH TYPE AND SCREEN STAT 10:07 AM CDT TYPE AND SCREEN, ADULT STAT 10:07 AM CDT AMMONIA STAT 02/24/2024 10:06 AM CDT CBC WITH PLATELETS & DIFFERENTIAL STAT 02/24/2024 9:58 AM CDT CBC WITH PLATELETS AND DIFFERENTIAL STAT 02/24/2024 9:58 AM CDT INR STAT 02/24/2024 9:58 AM CDT COMPREHENSIVE METABOLIC PANEL STAT 02/24/2024 9:58 AM CDT EXTRA PURPLE TOP TUBE STAT 02/24/2024 9:58 AM CDT EXTRA GREEN TOP (LITHIUM HEPARIN) TUBE STAT 02/24/2024 9:58 AM CDT EXTRA BLUE TOP TUBE STAT 02/24/2024 9 :58 AM CDT EXTRA TUBE STAT 02/24/2024 9:58 AM CDT HEPATITIS C (HIM EXTERNAL RESULT) Routine 01/04/2022 12:00 PM CDT LIPID PROFILE STAT 12/07/2017 12:34 PM 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 This assay does not differentiate between a vaccine-induced immune response and an immune response induced by infection with HBV. A positive total antihepatitis B core result would indicate that the hepatitis B surface antibody response is due to past HBV infection. Hepatitis B Surface Antibody Instrument Value >1,000.00 <8.5 m[IU]/mL 02/26/2024 4:38 PM CDT [facility] Blood STRUCTURE OF LEFT HAND / Unknown Venipuncture / Unknown 02/26/2024 11:13 AM CDT 02/26/2024 11:24 AM CDT Georgia Perez DO LAB - BLOOD ORDER NADIA [facility] [place] [facility] [address] [facility], Room [address] [address] * (ABNORMAL) INR (02/26/2024 9:49 AM CDT) Only the most recent of3 resultswithin the time period is included. INR 1.27(H) 0.85 - 1.15 02/26/2024 10:13 AM CDT LABORATORY Blood STRUCTURE OF RIGHT HAND / Unknown Venipuncture / Unknown 02/26/2024 9:49 AM CDT 02/26/2024 9:58 AM CDT Georgia Perez DO LAB - BLOOD ORDER NADIA LABORATORY [facility] [address] Lab (1st floor, no room number) [place] [address] * (ABNORMAL) Renal panel (02/26/2024 6:10 AM CDT) Sodium 128(L) 135 - 145 mmol/L 02/26/2024 6:49 AM CDT [facility]ORATORY Comment:Reference intervals for this test were updated on 07/05/2023 to more accurately reflect our healthy population. There may be differences in the flagging of prior results with similar values performed with this method. Interpretation of those prior results can be made in the context of the updated reference intervals. Potassium 5.1 3.4 - 5.3 mmol/L 02/26/2024 6:49 AM CDT LABORATORY Chloride 89(L) 98 - 107 mmol/L 02/26/2024 6:49 AM CDT LABORATORY Carbon Dioxide (CO2) 26 22 - 29 mmol/L 02/26/2024 6:49 AM CDT LABORATORY Anion Gap 13 7 - 15 mmol/L 02/26/2024 6:49 AM CDT LABORATORY Glucose 103(H) 70 - 99 mg/dL 02/26/2024 6:49 AM CDT LABORATORY Urea Nitrogen 60.3(H) 8.0 - 23.0 mg/dL 02/26/2024 6:49 AM CDT LABORATORY Creatinine 6.69(H) 0.67 - 1.17 mg/dL 02/26/2024 6:49 AM CDT LABORATORY GFR Estimate 9(L) >60 mL/min/1. 73m2 02/26/2024 6:49 AM CDT LABORATORY Calcium 7.9(L) 8.8 - 10.2 mg/dL 02/26/2024 6:49 AM CDT LABORATORY Albumin 3.3(L) 3.5 - 5.2 g/dL 02/26/2024 6:49 AM CDT LABORATORY Phosphorus 4.0 2.5 - 4.5 mg/dL 02/26/2024 6:49 AM CDT LABORATORY Blood STRUCTURE OF RIGHT HAND / Unknown Venipuncture / Unknown 02/26/2024 6:10 AM CDT 02/26/2024 6:20 AM CDT Georgia Perez DO LAB - BLOOD ORDER NADIA LABORATORY [facility] [address] Lab (1st floor, no room number) [place] [address], [facility] * (ABNORMAL) Iron and iron binding capacity (02/26/2024 6:10 AM CDT) [facility] Iron 38(L) 61 - 157 ug/dL 02/26/2024 9:58 AM CDT [facility] Iron Binding Capacity 137(L) 240 - 430 ug/dL 02/26/2024 9:58 AM CDT [facility] Iron Sat Index 28 15 - 46 % 02/26/2024 9:58 AM CDT [facility] Blood STRUCTURE OF RIGHT HAND / Unknown Venipuncture / Unknown 02/26/2024 6:10 AM CDT 02/26/2024 6:20 AM CDT Momo Hercules MD LAB - BLOOD ORDERABL ES [facility] [address] Lab (1st floor, no room number) [place] [address] * (ABNORMAL) Ferritin (02/26/2024 6:10 AM CDT) Ferritin 1,463(H) 31 - 409 ng/mL 02/26/2024 12:37 PM CDT [facility] Blood STRUCTURE OF RIGHT HAND / Unknown Venipuncture / Unknown 02/26/2024 6:10 AM CDT 02/26/2024 6:20 AM CDT Momo Hercules MD LAB - BLOOD ORDERABL ES [facility] [place] [facility] [address] [facility], [address] [place] [address] * (ABNORMAL) CBC with platelets (02/26/2024 6:10 AM CDT) Only the most recent of2 resultswithin the time period is included. WBC Count 6.5 4.0 - 11.0 10e3/uL 02/26/2024 6:31 AM CDT [facility] RBC Count 2.83(L) 4.40 - 5.90 10e6/uL 02/26/2024 6:31 AM CDT [facility] Hemoglobin 8.4(L) 13.3 - 17.7 g/dL 02/26/2024 6:31 AM CDT [facility] Hematocrit 25.4(L) 40.0 - 53.0 % 02/26/2024 6:31 AM CDT [facility] MCV 90 78 - 100 fL 02/26/2024 6:31 AM CDT [facility] MCH 29.7 26.5 - 33.0 pg 02/26/2024 6:31 AM CDT [facility] MCHC 33.1 31.5 - 36.5 g/dL 02/26/2024 6:31 AM CDT [facility] RDW 17.1(H) 10.0 - 15.0 % 02/26/2024 6:31 AM CDT [facility] Platelet Count 103(L) 150 - 450 10e3/uL 02/26/2024 6:31 AM CDT [facility] Blood STRUCTURE OF RIGHT HAND / Unknown Venipuncture / Unknown 02/26/2024 6:10 AM CDT 02/26/2024 6:20 AM CDT Georgia Perez DO LAB - BLOOD ORDER NADIA [facility] [address] Lab (1st floor, no room number) [place] [address], [facility] * CT Abdomen Pelvis w Contrast (02/25/2024 5:03 PM CDT) Anatomical Region Laterality Modality Abdomen/Pelvis, SUBRAD CT YAIMA DY, UMP CT ABDOMEN PELVIS, RAD CT Computed Tomography 02/25/2024 5:03 PM CDT Impressions 02/25/2024 6:31 PM CDT IMPRESSION: 1. No acute findings in the abdomen or pelvis. 2. Normal liver. Patent portal vein. Normal size spleen. 3. Tiny distal paraesophageal varicosities. Several anterior abdominal wall varicosities. 4. Focal lytic changes involving the superior aspect of L5 with some soft tissue thickening extending rightward and anteriorly. Findings are indeterminate. While potentially a prominent Schmorl node, an underlying more aggressive process is not excluded. Recommend clinical correlation and/or further evaluation with lumbar spine MRI. Narrative 02/25/2024 6:31 PM CDT EXAM: CT ABDOMEN PELVIS W CONTRAST LOCATION: [facility] DATE: 02/25/2024 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 Evaluate liver and vasculature. Stools. COMPARISON: None available. TECHNIQUE: CT scan of the abdomen and pelvis was performed following injection of IV contrast. Multiplanar reformats were obtained. Dose reduction techniques were used. CONTRAST: 95mL Isovue 370 FINDINGS: LOWER CHEST: Trace bilateral pleural effusions, slightly larger on the left. Minimal linear atelectasis left lung base. HEPATOBILIARY: Normal liver. No focal liver lesion. Numerous tiny gallstones. PANCREAS: Normal. SPLEEN: Normal size spleen. Splenule. ADRENAL GLANDS: Normal. KIDNEYS/BLADDER: Innumerable cysts in both kidneys, no follow-up needed. Tiny nonobstructing stone left kidney. Nondistended urinary bladder. BOWEL: Large volume stool scattered in the colon. No acute findings. No evidence of diverticulitis or colitis. No evidence of bowel obstruction. Normal appendix. LYMPH NODES: Normal. VASCULATURE: Moderate atherosclerotic calcifications abdominal aorta and branch vessels. Normal caliber abdominal aorta. Normal caliber patent portal vein. Numerous superficial varicosities anterior abdominal wall. Tiny paraesophageal varicosities. Vascular grafts proximal right leg. PELVIC ORGANS: Normal. MUSCULOSKELETAL: Focal lytic changes involving the superior aspect of L5 vertebral body (series 3, image 137) with some mild surrounding soft tissue thickening extending rightward and anteriorly. No other focal skeletal lesion. Mild scattered degenerative changes elsewhere in the spine. Procedure Note Martin Ochoa MD - 02/25/2024 EXAM: CT ABDOMEN PELVIS W CONTRAST LOCATION: [facility] DATE: 02/25/2024 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 Evaluate liver and vasculature. Stools. COMPARISON: None available. TECHNIQUE: CT scan of the abdomen and pelvis was performed followinginjection of IV contrast. Multiplanar reformats were obtained. Dosereduction techniques were used. CONTRAST: 95mL Isovue 370 FINDINGS: LOWER CHEST: Trace bilateral pleural effusions, slightly larger on theleft. Minimal linear atelectasis left lung base. HEPATOBILIARY: Normal liver. No focal liver lesion. Numerous tinygallstones. PANCREAS: Normal. SPLEEN: Normal size spleen. Splenule. ADRENAL GLANDS: Normal. KIDNEYS/BLADDER: Innumerable cysts in both kidneys, no follow-up needed.Tiny nonobstructing stone left kidney. Nondistended urinary bladder. BOWEL: Large volume stool scattered in the colon. No acute findings. Noevidence of diverticulitis or colitis. No evidence of bowel obstruction.Normal appendix. LYMPH NODES: Normal. VASCULATURE: Moderate atherosclerotic calcifications abdominal aorta andbranch vessels. Normal caliber abdominal aorta. Normal caliber patentportal vein. Numerous superficial varicosities anterior abdominal wall.Tiny paraesophageal varicosities. Vascular grafts proximal right leg. PELVIC ORGANS: Normal. MUSCULOSKELETAL: Focal lytic changes involving the superior aspect of [id number] body (series 3, image 137) with some mild surrounding softtissue thickening extending rightward and anteriorly. No other focalskeletal lesion. Mild scattered degenerative changes elsewhere in the spine. IMPRESSION: 1. No acute findings in the abdomen or pelvis. 2. Normal liver. Patent portal vein. Normal size spleen. 3. Tiny distal paraesophageal varicosities. Several anterior abdominalwall varicosities. 4. Focal lytic changes involving the superior aspect of L5 with some softtissue thickening extending rightward and anteriorly. Findings areindeterminate. While potentially a prominent Schmorl node, an underlyingmore aggressive process is not excluded. Recommend clinical correlation and/or further evaluation with lumbarspine MRI. Georgia Perez DO IMG CT ORDERABLES * UPPER GI ENDOSCOPY (02/25/2024 3:01 PM CDT) Upper GI Endoscopy [facility] Patient Name: Herminio Victor ? Procedure Date: 02/25/2024 3:01 PM ? Date of : 1965 ?Admit Type: Inpatient Age: 58 ? Gender: Male Attending MD: MOMO HERCULES MD, ?Total Sedation Time: _6_ minutes of continuous bedside 1:1 Instrument Name: 209 - Gastroscope ? Procedure: ?Upper GI endoscopy Indications: ?Anemia Providers: ?MOMO HERCULES MD (Doctor) Referring MD: ? Medicines: ?Midazolam 1 mg IV, Fentanyl 50 micrograms IV, ?Benzocaine spray Complications: ?No immediate complications. Procedure: ?Pre-Anesthesia Assessment: ?- Prior to the procedure, a History and Physical ?was performed, and patient medications and ?allergies were reviewed. The patient is competent. ?The risks and benefits of the procedure and the ?sedation options and risks were discussed with the ?patient. All questions were answered and informed ?consent was obtained. Patient identification and ?proposed procedure were verified by the physician ?in the procedure room. Mental Status Examination: ?alert and oriented. Airway Examination: normal ?oropharyngeal airway and neck mobility. Respiratory ?Examination: clear to auscultation. CV Examination: ?regular rate and rhythm. ASA Grade Assessment: II - ?A patient with mild systemic disease. After ?reviewing the risks and benefits, the patient was ?deemed in satisfactory condition to undergo the ?procedure. The anesthesia plan was to use moderate ?sedation / analgesia (conscious sedation). ?Immediately prior to administration of medications, ?the patient was re-assessed for adequacy to receive ?sedatives. The heart rate, respiratory rate, oxygen ?saturations, blood pressure, adequacy of pulmonary ?ventilation, and response to care were monitored ?throughout the procedure. The physical status of ?the patient was re-assessed after the procedure. ?After obtaining informed consent, the endoscope was ?passed under direct vision. Throughout the ?procedure, the patient's blood pressure, pulse, and ?oxygen saturations were monitored continuously. The ?Olympus Gastroscope, Model # GIF-H190, Censitrac # ?[id number] was introduced through the mouth, and ?advanced to the second part of duodenum. The upper ?GI endoscopy was accomplished without difficulty. ?The patient tolerated the procedure well. ? Findings: ? Small (< 5 mm) varices were found in the lower third of the esophagus. ? No stigmata of bleeding noted. Banding not attempted given food in ? stomach. ? A medium amount of food (residue) was found in the gastric body. No old ? or fresh blood seen. ? The examined duodenum was normal. ? Impression: ? - Small (< 5 mm) esophageal varices. ?- A medium amount of food (residue) in the stomach. ?- Normal examined duodenum. ?- No specimens collected. Recommendation: ? - Return patient to hospital [facility] for ongoing care. ?- I recommend CT of abdomen and pelvis with ?contrast to evaluate liver and vasculature. ? Electonically signed by Momo Hercules MD MOMO HERCULES MD 02/25/2024 3:37:52 PM I was physically present for the entire viewing portion of the exam. MOMO HERCULES MD Number of Addenda: 0 Note Initiated On: 02/25/2024 3:01 PM MRN: [id number] Procedure Date: ? 02/25/2024 3:01:34 PM Total Procedure Duration: 0 hours 2 minutes 56 seconds Estimated Blood Loss: ? Scope In: 3:19:43 PM Scope Out: 3:22:39 PM RADIOLOGY RESULTS 02/25/2024 3:01 PM CDT Momo Hercules MD PROCEDURES RADIOLOGY RESULTS * (ABNORMAL) Hemoglobin (02/25/2024 11:58 AM CDT) Only the most recent of3 resultswithin the time period is included. Hemoglobin 8.5(L) 13.3 - 17.7 g/dL 02/25/2024 12:03 PM CDT [facility] Blood STRUCTURE OF RIGHT HAND / Unknown Venipuncture / Unknown 02/25/2024 11:58 AM CDT 02/25/2024 12:01 PM CDT Nohemy Blackwood PA-C LAB - BLOOD ORDERABL ES RH LABORATORY [facility] [address] Lab (1st floor, no room number) [place] [address] * Hepatitis B surface antigen (02/25/2024 6:45 AM CDT) Hepatitis B Surface Antigen Nonreactive Nonreactive 02/25/2024 10:36 AM CDT [facility]U LABORATORY Blood STRUCTURE OF LEFT UPPER LIMB / Unknown Venipuncture / Unknown 02/25/2024 6:45 AM CDT 02/25/2024 6:51 AM CDT Mann Brush DO LAB - BLOOD ORDERABL ES [facility] LABORATORY [facility] [place] [facility] [address] [facility], Room [address] [place] [address] * (ABNORMAL) Basic metabolic panel (02/25/2024 6:45 AM CDT) Sodium 126(L) 135 - 145 mmol/L 02/25/2024 7:22 AM CDT RH LABORATORY Comment:Reference intervals for this test were updated on 07/05/2023 to more accurately reflect our healthy population. There may be differences in the flagging of prior results with similar values performed with this method. Interpretation of those prior results can be made in the context of the updated reference intervals. Potassium 5.4(H) 3.4 - 5.3 mmol/L 02/25/2024 7:22 AM CDT RH LABORATORY Chloride 87(L) 98 - 107 mmol/L 02/25/2024 7:22 AM CDT RH LABORATORY Carbon Dioxide (CO2) 21(L) 22 - 29 mmol/L 02/25/2024 7:22 AM CDT RH LABORATORY Anion Gap 18(H) 7 - 15 mmol/L 02/25/2024 7:22 AM CDT RH LABORATORY Urea Nitrogen 102.6(H) 8.0 - 23.0 mg/dL 02/25/2024 7:22 AM CDT RH LABORATORY Creatinine 10.14(H) 0.67 - 1.17 mg/dL 02/25/2024 7:22 AM CDT RH LABORATORY GFR Estimate 5(L) >60 mL/min/1. 73m2 02/25/2024 7:22 AM CDT RH LABORATORY Calcium 8.0(L) 8.8 - 10.2 mg/dL 02/25/2024 7:22 AM CDT RH LABORATORY Glucose 90 70 - 99 mg/dL 02/25/2024 7:22 AM CDT RH LABORATORY Blood STRUCTURE OF LEFT UPPER LIMB / Unknown Venipuncture / Unknown 02/25/2024 6:45 AM CDT 02/25/2024 6:51 AM CDT Nohemy Blackwood PA-C LAB - BLOOD ORDERABL ES LABORATORY [facility] [address] [employer] [facility] Lab (1st floor, no room number) [place] [address] * Transfuse red blood cells (unit) (02/25/2024 12:35 AM CDT) Only the most recent of3 resultswithin the time period is included. Mazin Srivastava MD BLOOD TRANSFUSION OR DERABLES * Prepare red blood cells (unit) (02/24/2024 9:17 PM CDT) Only the most recent of3 resultswithin the time period is included. Blood Component Type Red Blood Cells RH BLOOD BANK Product Code [id number] RH BLOO D BANK Unit Status Transfused RH BLOO D BANK Unit Number [id number] RH B LOOD BANK CROSSMATCH Compatible RH BLOOD BANK CODING SYSTEM [id number] RH BLO OD BANK ISSUE DATE AND TIME [id number] RH BLOOD BANK UNIT ABO/RH O+ RH BLOOD BANK UNIT TYPE ISBT [id number] RH BL OOD BANK 02/24/2024 9:17 PM CDT Mazin Srivastava MD BLOOD BANK PRODUCT O RDERABLES BLOOD BANK [address] [place] [address] * (ABNORMAL) Occult blood stool (02/24/2024 11:31 AM CDT) Occult Blood Positive(A ) Negative JOJO 02/24/2024 11:40 AM CDT LABORATORY Stool RECTAL CONTENTS / Unknown Non-blood Collection / Unknown 02/24/2024 11:31 AM CDT 02/24/2024 11:38 AM CDT Jae Noel MD LAB - STOOLS ORDERAB LES [facility] Lab [address] Lab (1st floor, no room number) [place] [address] * CT Head w/o Contrast (02/24/2024 10:42 AM CDT) Anatomical Region Laterality Modality Head, SUBRAD CT NEURO, SUBRA D CT NEURO, UMP CT NEURO, RAD CT Computed Tomography Impressions 02/24/2024 11:11 AM CDT IMPRESSION: 1. No acute intracranial pathology. 2. Chronic small vessel ischemic disease and generalized cerebral volume loss. FLAKO ZUNIGA MD SYSTEM ID: ??[id number] Narrative 02/24/2024 11:11 AM CDT EXAM: CT HEAD W/O CONTRAST ??02/24/2024 10:42 AM HISTORY: ??Altered mental status, cocnern for ICH, on coumadin ?? COMPARISON: ??No prior similar studies TECHNIQUE: Using multidetector thin collimation helical acquisition technique, axial, coronal and sagittal CT images from the skull base to the vertex were obtained without intravenous contrast. Prop Worker (topogram) image(s) also obtained and reviewed. Dose reduction techniques were performed. FINDINGS: No intracranial hemorrhage, mass effect, or midline shift. No acute loss of yip-white matter differentiation in the cerebral hemispheres. Ventricles are proportionate to the cerebral sulci. Clear basal cisterns. Patchy periventricular hypoattenuation, consistent with chronic small ischemic disease. Mild generalized cerebral volume loss. The bony calvaria and the bones of the skull base are normal. The visualized portions of the paranasal sinuses and mastoid air cells are clear. Grossly normal orbits. Procedure Note Flkao Zuniga MD - 02/24/2024 EXAM: CT HEAD W/O CONTRAST 02/24/2024 10:42 AM HISTORY: Altered mental status, cocnern for ICH, on coumadin COMPARISON: No prior similar studies TECHNIQUE: Using multidetector thin collimation helical acquisition technique, axial, coronal and sagittal CT images from the skull base to the vertex were obtained without intravenous contrast. Prop Worker (topogram) image(s) also obtained and reviewed. Dose reduction techniques were performed. FINDINGS: No intracranial hemorrhage, mass effect, or midline shift. No acute loss of yip-white matter differentiation in the cerebral hemispheres. Ventricles are proportionate to the cerebral sulci. Clear basal cisterns. Patchy periventricular hypoattenuation, consistent with chronic small ischemic disease. Mild generalized cerebral volume loss. The bony calvaria and the bones of the skull base are normal. The visualized portions of the paranasal sinuses and mastoid air cells are clear. Grossly normal orbits. IMPRESSION: 1. No acute intracranial pathology. 2. Chronic small vessel ischemic disease and generalized cerebral volume loss. FLAKO ZUNIGA MD SYSTEM ID: [id number] Jae Noel MD IM CT ORDERABLES * (ABNORMAL) iStat Gases (lactate) venous, POCT (02/24/2024 10:15 AM CDT) Lactic Acid POCT 0.7 <=2.0 mmol/L 02/24/2024 10:18 AM CDT RH LABORATORY POC Bicarbonate Venous POCT 27 21 - 28 mmol/L 02/24/2024 10:18 AM CDT RH LABORATORY POC O2 Sat, Venous POCT 37(L) 70 - 75 % 02/24/2024 10:18 AM CDT RH LABORATORY POC pCO2 Venous POCT 46 40 - 50 mm Hg 02/24/2024 10:18 AM CDT RH LABORATORY POC pH Venous POCT 7.37 7.32 - 7.43 02/24/2024 10:18 AM CDT RH LABORATORY POC pO2 Venous POCT 23(L) 25 - 47 mm Hg 02/24/2024 10:18 AM CDT RH LABORATORY POC Blood, venous BLOOD SPECIMEN / Unknown 02/24/2024 10:15 AM CDT 02/24/2024 10:18 AM CDT Jae Noel MD [facility] PO[facility] RH LABORATORY POC [facility] [address] Lab (1st floor, no room number) [place] [address], [facility] * EKG 12-lead, tracing only (02/24/2024 10:12 AM CDT) Systolic Blood Pressure mmHg RADIOLOGY RESULTS Diastolic Blood Pressure mmHg RADIOLOGY RESULTS Ventricular Rate 77 BPM RAD IOLOGY RESULTS Atrial Rate 77 BPM RADIOLOG Y RESULTS IA Interval 210 ms RADIOLOG Y RESULTS QRS Duration 98 ms RADIOLO GY RESULTS QT 382 ms RADIOLOGY RESULTS QTc 432 ms RADIOLOGY RESULTS P Calera 49 degrees RADIOLOGY RESULTS R AXIS 6 degrees RADIOLOGY RESULTS T Calera 36 degrees RADIOLOGY RESULTS Interpretation ECG Sinus rhythm with 1st degree A-V block Otherwise normal ECG When compared with ECG of 16-DEC-2015 14:48, Criteria for Septal infarct are no longer Present Unconfirmed report - interpretation of this ECG is computer generated - see medical record for final interpretation Confirmed by - EMERGENCY ROOM, PHYSICIAN ([id number]), newspaper editor YISSEL VELASQUEZ ([id number]) on 02/24/2024 10:54:14 AM RADIOLOGY RESULTS 02/24/2024 10:1 2 AM CDT 02/24/2024 10:54 AM CDT Jae Noel MD ECG ORDERABLES RADIOLOGY RESULTS * Adult Type and Screen (02/24/2024 10:07 AM CDT) ABO/RH(D) O POS 02/24/2024 10:08 AM CDT RH BLOOD BANK Antibody Screen Negative Negative 02/24/2024 10:08 AM CDT RH BLOOD BANK SPECIMEN EXPIRATION DATE [id number] 02/24/2024 10:08 AM CDT RH BLOOD BANK Blood STRUCTURE OF RIGHT UPPER LIMB / Unknown Venipuncture / Unknown 02/24/2024 10:07 AM CDT 02/24/2024 10:12 AM CDT Jae Noel MD LAB - BLOOD BANK SHANNON T ORDER Performing Organization Address City/[facility]/ZIP Co de Phone Number BLOOD BANK [address] [place] [phone] [place] [address] * Ammonia (02/24/2024 10:06 AM CDT) Ammonia 26 16 - 60 umol/L 02/24/2024 10:32 AM CDT RH LABORATORY Blood STRUCTURE OF RIGHT UPPER LIMB / Unknown Venipuncture / Unknown 02/24/2024 10:06 AM CDT 02/24/2024 10:13 AM CDT Jae Noel MD LAB - BLOOD ORDERABL ES Performing Organization Address [facility] Co de Phone Number [facility] [address] Lab (1st floor, no room number) [place] [phone] [place] [address] * Extra Purple Top Tube (02/24/2024 9:58 AM CDT) Hold Specimen [facility] 02/24/2024 11:16 AM CDT RH LABORATORY Blood STRUCTURE OF RIGHT UPPER LIMB / Unknown Venipuncture / Unknown 02/24/2024 9:58 AM CDT 02/24/2024 10:11 AM CDT Jae Noel MD LAB - BLOOD ORDERABL ES Performing Organization Address City/[facility]/ZIP Co de Phone Number [facility] [address] Lab (1st floor, no room number) [place] [phone] * Extra Green Top (Winn Heparin) Tube (02/24/2024 9:58 AM CDT) Hold Specimen [facility] 02/24/2024 11:16 AM CDT RH LABORATORY Blood STRUCTURE OF RIGHT UPPER LIMB / Unknown Venipuncture / Unknown 02/24/2024 9:58 AM CDT 02/24/2024 10:11 AM CDT Jae Noel MD LAB - BLOOD ORDERABL ES RH LABORATORY [facility] [address] Lab (1st floor, no room number) [place] [address] * Extra Blue Top Tube (02/24/2024 9:58 AM CDT) Hold Specimen [facility] 02/24/2024 11:16 AM CDT RH LABORATORY Blood STRUCTURE OF RIGHT UPPER LIMB / Unknown Venipuncture / Unknown 02/24/2024 9:58 AM CDT 02/24/2024 10:11 AM CDT Jae Noel MD LAB - BLOOD ORDERABL ES LABORATORY [facility] [address] Lab (1st floor, no room number) [place] [phone] [place] [address] * (ABNORMAL) CBC with platelets and differential (02/24/2024 9:58 AM CDT) WBC Count 6.4 4.0 - 11.0 10e3/uL 02/24/2024 10:38 AM CDT RH LABORATORY RBC Count 2.09(L) 4.40 - 5.90 10e6/uL 02/24/2024 10:38 AM CDT RH LABORATORY Hemoglobin 6.2(LL) 13.3 - 17.7 g/dL 02/24/2024 10:38 AM CDT RH LABORATORY Hematocrit 20.0(L) 40.0 - 53.0 % 02/24/2024 10:38 AM CDT RH LABORATORY MCV 96 78 - 100 fL 02/24/2024 10:38 AM CDT RH LABORATORY MCH 29.7 26.5 - 33.0 pg 02/24/2024 10:38 AM CDT RH LABORATORY MCHC 31.0(L) 31.5 - 36.5 g/dL 02/24/2024 10:38 AM CDT RH LABORATORY RDW 17.4(H) 10.0 - 15.0 % 02/24/2024 10:38 AM CDT RH LABORATORY Platelet Count 133(L) 150 - 450 10e3/uL 02/24/2024 10:38 AM CDT RH LABORATORY % Neutrophils 70 % 02/24/2024 10:38 AM CDT RH LABORATORY % Lymphocytes 13 % 02/24/2024 10:38 AM CDT RH LABORATORY % Monocytes 10 % 02/24/2024 10:38 AM CDT RH LABORATORY % Eosinophils 7 % 02/24/2024 10:38 AM CDT RH LABORATORY % Basophils 0 % 02/24/2024 10:38 AM CDT RH LABORATORY % Immature Granulocytes 0 % 02/24/2024 10:38 AM CDT RH LABORATORY NRBCs per 100 WBC 0 <1 /100 024 10:38 AM CDT RH LABORATORY Absolute Neutrophils 4.4 1.6 - 8.3 10e3/uL 02/24/2024 10:38 AM CDT RH LABORATORY Absolute Lymphocytes 0.9 0.8 - 5.3 10e3/uL 02/24/2024 10:38 AM CDT RH LABORATORY Absolute Monocytes 0.6 0.0 - 1.3 10e3/uL 02/24/2024 10:38 AM CDT RH LABORATORY Absolute Eosinophils 0.4 0.0 - 0.7 10e3/uL 02/24/2024 10:38 AM CDT RH LABORATORY Absolute Basophils 0.0 0.0 - 0.2 10e3/uL 02/24/2024 10:38 AM CDT RH LABORATORY Absolute Immature Granulocytes 0.0 <=0.4 10e3/uL 02/24/2024 10:38 AM CDT RH LABORATORY Absolute NRBCs 0.0 10e3/uL 02/24/2024 10:38 AM CDT RH LABORATORY Blood STRUCTURE OF RIGHT UPPER LIMB / Unknown Venipuncture / Unknown 02/24/2024 9:58 AM CDT 02/24/2024 10:11 AM CDT Jae Noel MD LAB - BLOOD ORDERABL ES RH LABORATORY [facility] [address] [facility] Lab (1st floor, no room number) [place] [address], [facility] * (ABNORMAL) Comprehensive metabolic panel (02/24/2024 9:58 AM CDT) [facility] Sodium 130(L) 135 - 145 mmol/L 02/24/2024 10:37 AM CDT LABORATORY Comment:Reference intervals for this test were updated on 07/05/2023 to more accurately reflect our healthy population. There may be differences in the flagging of prior results with similar values performed with this method. Interpretation of those prior results can be made in the context of the updated reference intervals. Potassium 4.2 3.4 - 5.3 mmol/L 02/24/2024 10:37 AM CDT LABORATORY Carbon Dioxide (CO2) 24 22 - 29 mmol/L 02/24/2024 10:37 AM CDT LABORATORY Anion Gap 18(H) 7 - 15 mmol/L 02/24/2024 10:37 AM CDT LABORATORY Urea Nitrogen 76.2(H) 8.0 - 23.0 mg/dL 02/24/2024 10:37 AM CDT LABORATORY Creatinine 8.60(H) 0.67 - 1.17 mg/dL 02/24/2024 10:37 AM CDT LABORATORY GFR Estimate 7(L) >60 mL/min/1. 73m2 02/24/2024 10:37 AM CDT LABORATORY Calcium 8.3(L) 8.8 - 10.2 mg/dL 02/24/2024 10:37 AM CDT LABORATORY Chloride 88(L) 98 - 107 mmol/L 02/24/2024 10:37 AM CDT LABORATORY Glucose 147(H) 70 - 99 mg/dL 02/24/2024 10:37 AM CDT LABORATORY Alkaline Phosphatase 72 40 - 150 U/L 02/24/2024 10:37 AM CDT LABORATORY Comment:Reference intervals for this test were updated on 08/23/2023 to more accurately reflect our healthy population. There may be differences in the flagging of prior results with similar values performed with this method. Interpretation of those prior results can be made in the context of the updated reference intervals. AST 21 0 - 45 U/L 02/24/2024 10:37 AM CDT LABORATORY Comment:Reference intervals for this test were updated on 03/21/2023 to more accurately reflect our healthy population. There may be differences in the flagging of prior results with similar values performed with this method. Interpretation of those prior results can be made in the context of the updated reference intervals. ALT 21 0 - 70 U/L 02/24/2024 10:37 AM CDT RH LABORATORY Comment:Reference intervals for this test were updated on 03/21/2023 to more accurately reflect our healthy population. There may be differences in the flagging of prior results with similar values performed with this method. Interpretation of those prior results can be made in the context of the updated reference intervals. Protein Total 6.3(L) 6.4 - 8.3 g/dL 02/24/2024 10:37 AM CDT RH LABORATORY Albumin 3.6 3.5 - 5.2 g/dL 02/24/2024 10:37 AM CDT RH LABORATORY Bilirubin Total 0.5 <=1.2 mg/dL 02/24/2024 10:37 AM CDT RH LABORATORY Blood STRUCTURE OF RIGHT UPPER LIMB / Unknown Venipuncture / Unknown 02/24/2024 9:58 AM CDT 02/24/2024 10:11 AM CDT Jae Noel MD LAB - BLOOD ORDERABL ES RH LABORATORY [facility] [address] [facility] Lab (1st floor, no room number) [place] [address] * Hepatitis C (HIM External Result) (01/04/2022 12:00 PM CDT) Hep C HIM See Scanned Document EXTERNAL LAB Comment:Nonreactive 01/04/2022 12:0 0 PM CDT Narrative EXTERNAL LAB - 01/04/2022 12:00 PM CDT LAB RESULT [facility] [address] [place] [address] Provider Outside LAB - HIM EXTERNAL R ESULT EXTERNAL LAB External Lab * (ABNORMAL) Lipid panel (12/07/2017 12:34 PM LEAD SCIENTIST) Pathologist [facility] Cholesterol 115 <200 mg/dL 12/07/2017 1:27 PM LEAD SCIENTIST [facility] Triglycerides 84 <150 mg/dL 12/07/2017 1:27 PM LEAD SCIENTIST [facility] HDL Cholesterol 37(L) >39 mg/dL 8 1:27 PM [facility] LDL Cholesterol Calculated 61 <100 mg/dL 12/07/2017 1:27 PM [facility] Comment:Desirable: <100 mg/d l Non HDL Cholesterol 78 <130 mg/dL 12/07/2017 1:27 PM LEAD SCIENTIST [facility] Blood specimen (specimen) 12/07/2017 12:34 PM LEAD SCIENTIST 12/07/2017 12:58 PM LEAD SCIENTIST Michele Fuentes MD LAB - BLOOD ORD ERABLES [facility] [address] [address], [facility] [phone] * Colonoscopy - HIM Scan (09/24/2013) Narrative Suad Taylor - 09/24/2013 [facility] Progress Note Provider Outside PROCEDURES from Last 3 Months or Most Recently Relevant to Health Maintenance Advance Directives For more information, please contact: [phone] * Full Code (Latest Code Status on File) Date Activated Date Inactivated Comments 02/24/2024 2:16 PM 02/26/2024 5:36 PM All basic an d advanced life-sustaining interventions are performed as appropriate Question Answer Comments Code status determined by: Discussion with davidson gomes/ legal decision maker * Full Code Date Activated Date Inactivated Comments 01/26/2018 12:25 PM 01/25/2019 11:45 AM * Full Code Date Activated Date Inactivated Comments 12/19/2017 2:36 PM 01/26/2018 12:25 PM * Full Code Date Activated Date Inactivated Comments 12/16/2017 2:03 PM 12/19/2017 2:36 PM * Full Code Date Activated Date Inactivated Comments 03/06/2016 7:33 AM 12/16/2017 2:03 PM Care Teams Geotechnical Department Manager Relationship Specialty Start Date End Date Preet Huff PCP - General 06/24/11
--- OUTSIDE RECORDS SUMMARY | 2024-02-29 09:46 | XMS_ITS | Encounter Summary ---
Author Organization [facility] Address [address] [place] [address] Phone Care Team Providers Care Bank Secrecy Act Officer Name Role Phone Preet Huff MD Primary Care Provider [phone] Reason for Visit * Reason Comments Med Refill Encounter Details Date Type Department Care Team (Late st Contact Info) Description 03/23/2021 Refill [facility] [address] [facility] [address] [place], [place] [address] María Elena Styles PA [address] [facility] [address] [facility] [address] [place] [address] Social History Tobacco Use Types Packs/Day Years [...] on filedocumented in this encounter Care Teams Bank Secrecy Act Officer Relationship Specialty Start Date End Date Preet Huff MD [address] [place] [phone] PCP - General 10/31/19 documented as of this encounter
--- OUTSIDE RECORDS SUMMARY | 2024-02-29 09:46 | XMS_ITS | Encounter Summary ---
Author Organization [facility] Address [address] [place] [address] Phone Care Team Providers Care Agricultural Commodities Inspector Name Role Phone Preet Huff MD Primary Care Provider [phone] Encounter Details Date Type Department Care Team (Late st Contact Info) Description 02/08/2024 Orders Only [facility] [address] [place], [place] [address] María Elena Styles PA [address] [place], [place] [address] Social History Tobacco Use Types Packs/Day Years Used Date Smoking Tobacco: Never Assessed Sex and Gender Information Value Date Recorded Sex Assigned at Not on file Gender Identity Not on file Sexual Orientation Not on file documented as of this encounter Plan of Treatment Not on file documented as of this encounter Visit Diagnoses Not on filedocumented in this encounter Care Teams Agricultural Commodities Inspector Relationship Specialty Start Date End Date Preet Huff MD [address] [place] [phone] PCP - General 10/31/19 documented as of this encounter
--- OUTSIDE RECORDS SUMMARY | 2024-02-29 09:46 | XMS_ITS | Clinical Summary ---
Author Organization [facility] Address [address] [place] [address] Phone Care Team Providers Care Telephone Sex Worker Name Role Phone Preet Huff MD Primary Care Provider [phone] Medications Medication Sig Dispensed Refills Start Date End Date Status cholecalciferol (VITAMIN D-3) 1000 units tablet 1 tab qd 04/02/2015 Active B Complex Vitamins (VITAMIN B COMPLEX) tablet 1 tab po daily 12/08/2012 Activ e bisacodyl (DULCOLAX) 5 MG EC tablet 2 tabs po bid 04/02/2015 Active B Sisznjx-P-Lgqqz Acid (RENAL) 1 MG capsule 1 cap [...] non-dialysis days only.. 180 tablet 1 02/08/2024 Active warfarin (COUMADIN) 5 MG tablet TAKE [...] Type Department Care Team Description 02/20/2024 Refill [facility] [employer] [address] [place] [address] María Elena Styles PA 02/08/2024 Orders Only [facility] [employer] [address] [place] [address] María Elena Styles PA from Last 3 [...] Influenza Vaccine (Season Ended) 2024 Care Teams Telephone Sex Worker Relationship Specialty Start Date End Date Preet Huff MD [address] [place] [phone] PCP - General 10/31/19
--- OUTSIDE RECORDS SUMMARY | 2024-02-29 09:46 | XMS_ITS | Encounter Summary ---
Author Organization [facility] Address [address] [place] [address] Phone Care Team Providers Care Bias Binding Cutter Name Role Phone Preet Huff MD Primary Care Provider Reason for Visit * Reason Comments Med Refill Encounter Details Date Type Department Care Team (Late st Contact Info) Description 02/12/2021 Refill [facility] [address] [facility] [address] [employer], [place] [address] María Elena Styles PA [address] [place] [address] Social History Tobacco Use Types Packs/Day Years Used Date Smoking Tobacco: Never Assessed Sex and Gender Information Value Date Recorded Sex Assigned at Not on file Gender Identity Not on file Sexual Orientation Not on file documented as of this encounter Plan of Treatment Not on file documented as of this encounter Visit Diagnoses Not on filedocumented in this encounter Care Teams Bias Binding Cutter Relationship Specialty Start Date End Date Preet Huff MD [address] [place] [phone] PCP - General 10/31/19 documented as of this encounter
--- OUTSIDE RECORDS SUMMARY | 2024-02-29 09:46 | XMS_ITS | Encounter Summary ---
Author Organization [facility] Address [address] [place] [address] Phone Care Team Providers Care Mac Developer Name Role Phone Preet Hfuf MD Primary Care Provider [phone] Reason for Visit * Reason Comments Med Refill Encounter Details Date Type Department Care Team (Late st Contact Info) Description 02/20/2024 Refill [facility] [address] [facility] [address] [place], [place] [address] María Elena Styles PA [address] [place] [address] Social History Tobacco Use Types Packs/Day Years Used Date Smoking Tobacco: Never Assessed Sex and Gender Information Value Date Recorded Sex Assigned at Not on file Gender Identity Not on file Sexual Orientation Not on file documented as of this encounter Plan of Treatment Not on file documented as of this encounter Visit Diagnoses Not on filedocumented in this encounter Care Teams Mac Developer Relationship Specialty Start Date End Date Preet Huff MD [address] [place] [phone] PCP - General 10/31/19 documented as of this encounter
--- OUTSIDE RECORDS SUMMARY | 2024-02-29 09:46 | XMS_ITS | Referral Summary ---
Author Organization [place] Address [address] [place] [address] Care Team Providers Care Family Services Worker Name Role Phone Preet Huff Hans Primary Care Provider [phone] Encounters Date Type Department Care Team Description 02/24/2024 9:38 AM CDT - 02/26/2024 3:30 PM CDT Hospital Encounter [place] [address] Medical Surgical [address] [place] [id number] Jae Noel MD Blomquist, Katherine, DO Anemia, unspecified type; ESRD on dialysis (H); Altered mental status, unspecified altered mental status type; Gastrointestinal hemorrhage, unspecified gastrointestinal hemorrhage type Discharge Disposition: Home or Self Care 02/25/2024 2:50 PM CDT - 02/25/2024 3:25 PM CDT Surgery [facility] [place] [address] [place] [address] Momo Hercules MD Esophagoscopy, gastroscopy, duodenoscopy (EGD), combined from Last 3 Months Allergies Active Allergy Reactions Criticality Noted Date [...] file Gender Identity Male 12/05/2017 10:39 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 Sexual Orientation Not on file Last Filed [...] 02/24/2024 1:53 PM CDT Plan of Treatment Not on file Medical Devices Implanted Type Area Regulator Operator Device Identifier Shelf Expiration Date Model / Serial / Lot Graft Patch Vasc Xenosure Biologic 0.8x08cm 0.8p8 Implanted:Qty: 1 on 12/16/2017 by Jaxon Saravia MD at [facility] Bone/Tis rocco/Biol ogic Left: Iliac/Fem orals LEMAITRE VASCULAR IN 06/06/2023 0.8P8 / / [id number] Graft Pericardium 8x0.8cm Vascu-Guard Implanted:Qty: 1 on 10/20/2011 at [facility] Right: Arm [employer] 01/16/2016 [id number] / / [id number] Femoral Popliteal Artery Implanted:Qty: 1 on 05/03/2012 by Jaxon Saravia MD at [facility] Right: Groin 12/07/2021 [id number] / [id number] / Description:CADAVER FEMORAL ARTERY RINSED IN A AND B SOLUTION: A SOLUTION LOT #[id number] EXPIRATION DATE 01/09/2014 B SOLUTION LOT #[id number] EXPIRATION DATE 11/15/2013 Graft Propaten Taper [id number] Implanted:Qty: 1 on 08/09/2012 by Jaxon Saravia MD at [facility] Right: Leg 10/24/2015 [id number] / / [id number] Graft Propaten Taper [id number] Implanted:Qty: 1 on 06/20/2013 by Jaxon Saravia MD at [facility] Left: Groin [employer] 02/07/2017 [id number] / / [id number] Graft Pericardium 8x0.8cm Vascu-Guard Implanted:Qty: 1 on 05/08/2014 by Jaxon Saravia MD at [facility] Left: Leg [employer] 11/26/2018 [id number] / PN# [id number] / [id number] Procol Vascular Bioprosthesis Implanted:Qty: 1 on 07/02/2015 by Jaxon Saravia MD at [facility] Left: Groin 12/16/2018 [id number] -[id number] / [id number] / Procol Vascular Bioprosthesis Implanted:Qty: 1 on 08/13/2015 by Jaxon Saravia MD at [facility] Left: Groin 12/16/2018 [id number] -[id number] / [id number] / Graft Vasc Bioprosthesis Procol [id number] Implanted:Qty: 1 on 03/05/2016 by Jaxon Saravia MD at [facility] Left: Leg LEMAITRE VASCULAR IN 02/03/2019 [id number] -[id number] / [id number] / Procedures Procedure [...] CDT LIPID PROFILE STAT 12/07/2017 12:34 PM SENIOR ACCOUNTANT CPA 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 INR 1.27(H) 0.85 - 1.15 02/26/2024 10:13 AM CDT LABORATORY Blood STRUCTURE OF RIGHT HAND / Unknown Venipuncture / Unknown 02/26/2024 9:49 AM CDT 02/26/2024 9:58 AM CDT Georgia Perez DO LAB - BLOOD ORDER NADIA Performing Organization Address City/[facility]/ZIP Co de Phone Number LABORATORY [facility] Acute Care Lab [address] Lab (1st floor, no room number) [place] [address] * (ABNORMAL) Renal panel (02/26/2024 6:10 AM [...] - 99 mg/dL 02/26/2024 6:49 AM CDT RH LABORATORY Urea Nitrogen 60.3(H) 8.0 - 23.0 mg/dL 02/26/2024 6:49 AM CDT RH LABORATORY Creatinine 6.69(H) 0.67 - 1.17 mg/dL 02/26/2024 6:49 AM CDT RH LABORATORY GFR Estimate 9(L) >60 mL/min/1. 73m2 02/26/2024 6:49 AM CDT RH LABORATORY Calcium 7.9(L) 8.8 - 10.2 mg/dL 02/26/2024 6:49 AM CDT RH LABORATORY Albumin 3.3(L) 3.5 - 5.2 g/dL 02/26/2024 6:49 AM CDT RH LABORATORY Phosphorus 4.0 2.5 - 4.5 mg/dL 02/26/2024 6:49 AM CDT RH LABORATORY Blood STRUCTURE OF RIGHT HAND / Unknown Venipuncture / Unknown 02/26/2024 6:10 AM CDT 02/26/2024 6:20 AM CDT Georgia Perez DO LAB - BLOOD ORDER NADIA [facility] Acute Care Lab [address] Lab (1st floor, no room number) [place] [address], [facility] * (ABNORMAL) Iron and iron binding capacity (02/26/2024 6:10 AM CDT) Iron 38(L) 61 - 157 ug/dL 02/26/2024 9:58 AM CDT LABORATORY Iron Binding Capacity 137(L) 240 - 430 ug/dL 02/26/2024 9:58 AM CDT LABORATORY Iron Sat Index 28 15 - 46 % 02/26/2024 9:58 AM CDT LABORATORY Blood STRUCTURE OF RIGHT HAND / Unknown Venipuncture / Unknown 02/26/2024 6:10 AM CDT 02/26/2024 6:20 AM CDT Momo Hercules MD LAB - BLOOD ORDERABL ES RH LABORATORY [facility] Acute Care Lab [address] Lab (1st floor, no room number) [place] [address] * (ABNORMAL) Ferritin (02/26/2024 6:10 AM CDT) Ferritin 1,463(H) 31 - 409 ng/mL 02/26/2024 12:37 PM CDT [facility] LABORATORY Blood STRUCTURE OF RIGHT HAND / Unknown Venipuncture / Unknown 02/26/2024 6:10 AM CDT 02/26/2024 6:20 AM CDT Momo Hercules MD LAB - BLOOD ORDERABL ES [facility] [place] [facility] [address] [facility], [address] [place] [address] * (ABNORMAL) CBC with platelets (02/26/2024 6:10 [...] - 450 10e3/uL 02/26/2024 6:31 AM CDT LABORATORY Blood STRUCTURE OF RIGHT HAND / Unknown Venipuncture / Unknown 02/26/2024 6:10 AM CDT 02/26/2024 6:20 AM CDT Georgia Ana DO LAB - BLOOD ORDER NADIA [facility] Acute Care Lab [address] Lab (1st floor, no room number) [place] [address], [facility] * CT Abdomen Pelvis w Contrast [...] EXAM: CT ABDOMEN PELVIS W CONTRAST LOCATION: [facility] DATE: 02/25/2024 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 Evaluate [...] EXAM: CT ABDOMEN PELVIS W CONTRAST LOCATION: [facility] DATE: 02/25/2024 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 Evaluate [...] lytic changes involving the superior aspect of I7yeoyqogcu body (series 3, image 137) with some [...] correlation and/or further evaluation with lumbarspine MRI. Georgiamegha Perez DO IMG CT ORDERABLES * UPPER GI ENDOSCOPY (02/25/2024 3:01 PM CDT) Upper GI Endoscopy [facility] Patient Name: Herminio Victor ? Procedure Date: [...] ?Olympus Gastroscope, Model # [id number]-H190, Censitrac # ?[id number] was introduced through the mouth, and ?advanced [...] Note Initiated On: 02/25/2024 3:01 PM MRN: ?[id number] Procedure Date: ? 02/25/2024 3:01:34 PM Total [...] - 17.7 g/dL 02/25/2024 12:03 PM CDT LABORATORY Blood STRUCTURE OF RIGHT HAND / Unknown Venipuncture / Unknown 02/25/2024 11:58 AM CDT 02/25/2024 12:01 PM CDT Nohemy Blackwood PA-C LAB - BLOOD ORDERABL ES LABORATORY [facility] Acute Care Lab [address] [facility] Lab (1st floor, no room number) [place] [address], [facility] * Hepatitis B surface antigen (02/25/2024 6:45 AM CDT) Hepatitis B Surface Antigen Nonreactive Nonreactive 02/25/2024 10:36 AM CDT U LABORATORY Blood STRUCTURE OF LEFT UPPER LIMB / Unknown Venipuncture / Unknown 02/25/2024 6:45 AM CDT 02/25/2024 6:51 AM CDT Mann Brush DO LAB - BLOOD ORDERABL ES [facility] [place] [facility] [address] [facility], [address] [place] [address] * (ABNORMAL) Basic metabolic panel (02/25/2024 6:45 AM CDT) [facility] Sodium 126(L) 135 - 145 mmol/L 02/25/2024 7:22 AM CDT LABORATORY Comment:Reference intervals for this test were updated on 07/05/2023 to more accurately reflect our healthy population. There may be differences in the flagging of prior results with similar values performed with this method. Interpretation of those prior results can be made in the context of the updated reference intervals. Potassium 5.4(H) 3.4 - 5.3 mmol/L 02/25/2024 7:22 AM CDT LABORATORY Chloride 87(L) 98 - 107 mmol/L [...] - 99 mg/dL 02/25/2024 7:22 AM CDT LABORATORY Blood STRUCTURE OF LEFT UPPER LIMB / Unknown Venipuncture / Unknown 02/25/2024 6:45 AM CDT 02/25/2024 6:51 AM CDT Nohemy Blackwood PA-C LAB - BLOOD ORDERABL ES LABORATORY [facility] Acute Care Lab [address] [facility] Lab (1st floor, no room number) [place] [address] * Transfuse red blood cells (unit) (02/25/2024 12:35 AM CDT) Only the most recent of3 resultswithin the time period is included. Mazin Srivastava MD BLOOD TRANSFUSION OR DERABLES * Prepare red blood cells (unit) (02/24/2024 9:17 PM CDT) Only the most recent of3 resultswithin the time period is included. Blood Component Type Red Blood Cells RH BLOOD BANK Product Code [id number] RH BLOO D BANK Unit Status Transfused RH BLOO D BANK Unit Number [id number] RH B LOOD BANK CROSSMATCH Compatible RH BLOOD BANK CODING SYSTEM [id number] RH BLO OD BANK ISSUE DATE AND TIME [id number] RH BLOOD BANK UNIT ABO/RH O+ RH BLOOD BANK UNIT TYPE ISBT 5100 RH BL OOD BANK 02/24/2024 9:17 PM CDT Mazin Srivastava MD BLOOD BANK PRODUCT O RDERABLES Performing Organization Address [facility]/ZIP Co de Phone Number RH BLOOD BANK [address] [place] [address] * (ABNORMAL) Occult blood stool (02/24/2024 11:31 AM CDT) Occult Blood Positive(A ) Negative JOJO 02/24/2024 11:40 AM CDT RH LABORATORY Stool RECTAL CONTENTS / Unknown Non-blood Collection / Unknown 02/24/2024 11:31 AM CDT 02/24/2024 11:38 AM CDT Jae Noel MD LAB - STOOLS ORDERAB LES [facility] Acute Care Lab [address] [facility] Lab (1st floor, no room number) [place] [address] * CT Head w/o Contrast (02/24/2024 10:42 AM CDT) Anatomical Region Laterality Modality Head, SUBRAD CT NEURO, SUBRA D CT NEURO, UMP CT NEURO, RAD CT Computed Tomography Impressions 02/24/2024 11:11 AM CDT IMPRESSION: 1. No acute intracranial pathology. 2. Chronic small vessel ischemic disease and generalized cerebral volume loss. FLAKO ZUNIGA MD SYSTEM ID: ??[id number] Narrative 02/24/2024 11:11 AM CDT EXAM: CT HEAD W/O CONTRAST ??02/24/2024 10:42 AM HISTORY: ??Altered mental status, cocnern for ICH, on coumadin ?? COMPARISON: ??No prior similar studies TECHNIQUE: Using multidetector thin collimation helical acquisition technique, axial, coronal and sagittal CT images from the skull base to the vertex were obtained without intravenous contrast. Nutrition And Dietetics Instructor (topogram) image(s) also obtained and reviewed. Dose [...] are clear. Grossly normal orbits. Procedure Note Flako Zuniga MD - 02/24/2024 EXAM: CT HEAD W/O CONTRAST 02/24/2024 10:42 AM HISTORY: Altered mental status, cocnern for ICH, on coumadin COMPARISON: No prior similar studies TECHNIQUE: Using multidetector thin collimation helical acquisition technique, axial, coronal and sagittal CT images from the skull base to the vertex were obtained without intravenous contrast. Nutrition And Dietetics Instructor (topogram) image(s) also obtained and reviewed. Dose [...] volume loss. FLAKO ZUNIGA MD SYSTEM ID: [id number] Jae Noel MD IMG CT ORDERABLES * (ABNORMAL) iStat Gases (lactate) venous, POCT (02/24/2024 10:15 AM CDT) [facility] Lactic Acid POCT 0.7 <=2.0 mmol/L 02/24/2024 [...] AM CDT Jae Noel MD LAB - AKER POCT RH LABORATORY POC [facility] Acute Care Lab [address] Lab (1st floor, no room number) [place] [address], [facility] * EKG 12-lead, tracing only (02/24/2024 10:12 AM CDT) Systolic Blood Pressure mmHg RADIOLOGY RESULTS Diastolic Blood Pressure mmHg RADIOLOGY RESULTS Ventricular Rate 77 BPM RAD IOLOGY RESULTS Atrial Rate 77 BPM RADIOLOG Y RESULTS AR Interval 210 ms RADIOLOG Y RESULTS QRS Duration 98 ms RADIOLO GY RESULTS QT 382 ms RADIOLOGY RESULTS QTc 432 ms RADIOLOGY RESULTS P [place] 49 degrees RADIOLOGY RESULTS R AXIS 6 degrees RADIOLOGY RESULTS T [place] 36 degrees RADIOLOGY RESULTS Interpretation ECG Sinus rhythm with 1st degree A-V block Otherwise normal ECG When compared with ECG of 16-DEC-2015 14:48, Criteria for Septal infarct are no longer Present Unconfirmed report - interpretation of this ECG is computer generated - see medical record for final interpretation Confirmed by - EMERGENCY ROOM, PHYSICIAN ([id number]), school photograph editor YISSEL VELASQUEZ ([id number]) on 02/24/2024 10:54:14 AM RADIOLOGY RESULTS 02/24/2024 10:1 2 AM CDT 02/24/2024 10:54 AM CDT Jae Noel MD ECG ORDERABLES RADIOLOGY RESULTS * Adult Type and Screen (02/24/2024 10:07 AM CDT) ABO/RH(D) O POS 02/24/2024 10:08 AM CDT RH BLOOD BANK Antibody Screen Negative Negative 02/24/2024 10:08 AM CDT RH BLOOD BANK SPECIMEN EXPIRATION DATE [id number] 02/24/2024 10:08 AM CDT RH BLOOD BANK Blood STRUCTURE OF RIGHT UPPER LIMB / Unknown Venipuncture / Unknown 02/24/2024 10:07 AM CDT 02/24/2024 10:12 AM CDT Jae Noel MD LAB - BLOOD BANK SHANNON T ORDER RH BLOOD BANK [address] [place] [address], [facility] * Ammonia (02/24/2024 10:06 AM CDT) Ammonia 26 16 - 60 umol/L 02/24/2024 10:32 AM CDT RH LABORATORY Blood STRUCTURE OF RIGHT UPPER LIMB / Unknown Venipuncture / Unknown 02/24/2024 10:06 AM CDT 02/24/2024 10:13 AM CDT Jae Noel MD LAB - BLOOD ORDERABL ES [facility] Care Lab [address] Lab (1st floor, no room number) [place] [address] * Extra Purple Top Tube (02/24/2024 9:58 AM CDT) Hold Specimen [facility] 02/24/2024 11:16 AM CDT RH LABORATORY Blood STRUCTURE OF RIGHT UPPER LIMB / Unknown Venipuncture / Unknown 02/24/2024 9:58 AM CDT 02/24/2024 10:11 AM CDT Jae Noel MD LAB - BLOOD ORDERABL ES Performing Organization Address City/[facility]/ZIP Co de Phone Number [facility] Acute Care Lab [address] Lab (1st floor, no room number) [place] [address], [facility] * Extra Green Top ([place] Heparin) Tube (02/24/2024 9:58 AM CDT) Hold Specimen [facility] 02/24/2024 11:16 AM CDT RH LABORATORY Blood STRUCTURE OF RIGHT UPPER LIMB / Unknown Venipuncture / Unknown 02/24/2024 9:58 AM CDT 02/24/2024 10:11 AM CDT Jae Noel MD LAB - BLOOD ORDERABL ES [facility] Care Lab [address] Lab (1st floor, no room number) [place] [address], [facility] * Extra Blue Top Tube (02/24/2024 9:58 AM CDT) Hold Specimen [facility] 02/24/2024 11:16 AM CDT RH LABORATORY Blood STRUCTURE OF RIGHT UPPER LIMB / Unknown Venipuncture / Unknown 02/24/2024 9:58 AM CDT 02/24/2024 10:11 AM CDT Jae Noel MD LAB - BLOOD ORDERABL ES RH LABORATORY [facility] Acute Care Lab [address] Lab (1st floor, no room number) [place] [address], [facility] * (ABNORMAL) CBC with platelets and differential [...] NRBCs 0.0 10e3/uL 02/24/2024 10:38 AM CDT LABORATORY Blood STRUCTURE OF RIGHT UPPER LIMB / Unknown Venipuncture / Unknown 02/24/2024 9:58 AM CDT 02/24/2024 10:11 AM CDT Jae Noel MD LAB - BLOOD ORDERABL ES LABORATORY [facility] Acute Care Lab [address] [facility] Lab (1st floor, no room number) [place] [address], [facility] * (ABNORMAL) Comprehensive metabolic panel (02/24/2024 9:58 AM CDT) Sodium 130(L) 135 - 145 mmol/L 02/24/2024 10:37 AM CDT RH LABORATORY Comment:Reference [...] 40 - 150 U/L 02/24/2024 10:37 AM T LABORATORY Comment:Reference intervals for this test were [...] - 70 U/L 02/24/2024 10:37 AM CDT LABORATORY Comment:Reference [...] LAB - BLOOD ORDERABL ES RH LABORATORY [facility] Acute Care Lab [address] Lab (1st floor, no room number) [place] [address] * Hepatitis C (HIM External Result) (01/04/2022 12:00 PM CDT) Hep C HIM See Scanned Document EXTERNAL LAB Comment:Nonreactive 01/04/2022 12:0 0 PM CDT Narrative EXTERNAL LAB - 01/04/2022 12:00 PM CDT LAB RESULT [facility] [address] [place] [address] Provider Outside LAB - HIM EXTERNAL R ESULT EXTERNAL LAB External Lab * (ABNORMAL) Lipid panel (12/07/2017 12:34 PM SENIOR ACCOUNTANT CPA) Cholesterol 115 <200 mg/dL 12/07/2017 1:27 PM [facility] Triglycerides 84 <150 mg/dL 12/07/2017 1:27 PM [facility] HDL Cholesterol 37(L) >39 mg/dL 8 1:27 PM [facility] LDL Cholesterol Calculated 61 <100 mg/dL 12/07/2017 1:27 PM [facility] Comment:Desirable: <100 mg/d l Non HDL Cholesterol 78 <130 mg/dL 12/07/2017 1:27 PM [facility] Blood specimen (specimen) 12/07/2017 12:34 PM SENIOR ACCOUNTANT CPA 12/07/2017 12:58 PM SENIOR ACCOUNTANT CPA Michele Fuentes MD LAB - BLOOD ORD ERABLES [facility] [address] [address], [facility] [phone] * Colonoscopy - HIM Scan (09/24/2013) Narrative Suad Taylor - 09/24/2013 [facility] Progress Note Provider Outside PROCEDURES from Last 3 Months or Most Recently Relevant to Health Maintenance Advance Directives For more information, please contact: [phone] * Full Code (Latest Code Status on [...] 7:33 AM 12/16/2017 2:03 PM Care Teams Family Services Worker Relationship Specialty Start Date End Date Preet Huff PCP - General 06/24/11
--- OUTSIDE RECORDS SUMMARY | 2024-02-29 09:46 | XMS_ITS | Clinical Summary ---
Author Organization [facility] Address [place], [place] [address] Care Team Providers Care Operative Supervisor Name Role Phone Preet Huff MD Primary [...] DVT of upper extremity (deep vein thrombosis) retirement (current) use of anticoagulants 2010 Secondary hyperparathyroidism [...] Description 01/22/2024 9:00 AM CDT Orders Only [facility] [address] [place] [address] Lab 12/15/2023 Refill [facility] [address] [facility] [place] [address] Preet Huff MD Refill Request (Metoprolol Tartrate) [...] (Age >=3 years) 07/13/20 17,06/27/2013,07/18/2012,07/14,07/09/2009,09/06/2007 Influenza, IIV4 06/23/2022, 1,07/11/2020,08/01,07/13/2018,07/17/2015 Influenza, IIV4 (=>6mos) MDV 07/13/2017 Pneumococcal Poly,23-Valent [...] Comments Blood Pressure 123/76 11/08/2023 2:26 PM GRAPE CUTTER Pulse 62 11/08/2023 2:26 PM GRAPE CUTTER Temperature 36.9 ??C (98.4 ??F) 05/22/2020 1:36 PM CD T Respiratory Rate 18 06/07/2018 11:0 8 AM CDT Oxygen Saturation 99% 07/15/2022 1:59 PM CDT Inhaled Oxygen Concentration - - Weight 83.4 kg (183 lb 12.8 oz) 11/08/2023 2:26 PM GRAPE CUTTER Height 172.3 cm (5' 7.84) 11/08/2023 2:26 PM CS T Body Mass Index 28.08 11/08/2023 2:26 PM GRAPE CUTTER Plan of Treatment Upcoming Encounters Date Type Department Care Team (Late st Contact Info) Description 06/07/2024 2:30 PM CDT Office Visit [facility] [address] [place] [address] Lizandro Singh MD [address] [place] [address] Health Maintenance Due Date Last Done Comments [...] Completed 10/21/2009 Medical Devices Implanted Type Area Mechanical Supervisor Device Identifier Shelf Expiration Date Model / Serial / Lot Cath Peritoneal Cvd 62cm - [id number] Implanted:Qty: 1 on 10/31/2009 at [facility] N/A: Abdomen STIVEN 05/10/2014 [id number] # / / [id number] Procedures Procedure Name Priority Date/Time Associated Diagnosis Comments LIPID PANEL W REFLEX MEASURED LDL Routine 11/08/2023 3:05 PM GRAPE CUTTER Mixed hyperlipidemia COLONOSCOPY SCREENING Routine 09/24/2013 12:00 AM GRAPE CUTTER Colon cancer screening ANTI HIV 1/2 Timed 03/04/2009 10:05 AM CDT Pre-Transplant Evaluation for End Stage Renal Disease ANTI HCV Timed 03/04/2009 10:05 AM CDT Pre-Transplant Evaluation for End Stage Renal Disease from Last 3 Months or Most Recently Relevant to Health Maintenance Results * (ABNORMAL) LIPID PANEL W REFLEX MEASURED LDL (11/08/2023 3:05 PM GRAPE CUTTER) CHOLESTEROL,TOTAL 90(L) 100 - 199 mg/dL 11/09/2023 10:41 AM GRAPE CUTTER [employer]ian[employer] Plan LABORATORY-[facility] TRAL LABORATORY Comment: Cholesterol, Total Reference Ranges Desirable <200 mg/dL Borderline 200-239 mg/dL High >=240 mg/dL TRIGLYCERIDES 104 <150 mg/dL 11/09/2023 10:41 AM [facility] TRAL LABORATORY HDL CHOLESTEROL 30(L) >40 mg/dL 10:41 AM [facility] TRAL LABORATORY NON-HDL CHOLESTEROL 60 <145 mg/dl 11/09/2023 10:41 AM [facility] TRAL LABORATORY CHOL/HDL RATIO 3.00 <4.50 11/09/2023 10:41 AM GRAPE CUTTER [facility] TRAL LABORATORY LDL CHOLESTEROL 39 <=130 mg/dL 11/09/2023 10:41 AM [facility] TRAL LABORATORY VLDL CHOLESTEROL 21 <=30 mg/dL 11/09/2023 10:41 AM [facility] TRAL LABORATORY PROVIDER ORDERED STATUS RANDOM 11/09/2023 10:41 AM [facility] TRAL LABORATORY Blood BLOOD SPECIMEN / Unknown Butterfly / Unknown 11/08/2023 3:05 PM GRAPE CUTTER 11/08/2023 3:08 PM GRAPE CUTTER Preet Huff MD CHEMISTRY [facility] [address] [place] [address], * COLONOSCOPY SCREENING (09/24/2013 12:00 AM GRAPE CUTTER) Narrative 09/24/2013 12:00 AM GRAPE CUTTER Procedure Note Scanner - 09/24/2013 12:00 AM CST Preet Huff MD GI PROCEDURE O RD * ANTI HCV (03/04/2009 10:05 AM CDT) ANTI HCV Non-reacti ve [facility] Blood specimen (specimen) BLOOD SPECIMEN / Unknown 03/04/2009 10:05 AM CDT 03/04/2009 9:57 AM CDT Alfredo Juarez MD SEND OUTS [facility] LABORATORY [place]NAL ZIP [phone] [address] * ANTI HIV 1/2 (03/04/2009 10:05 AM CDT) ANTI HIV 1/2 Non-reacti ve [facility] Blood specimen (specimen) BLOOD SPECIMEN / Unknown 03/04/2009 10:05 AM CDT 03/04/2009 9:57 AM CDT Alfredo Juarez MD SEND OUTS [facility] [place] ZIP [address] [address] from Last 3 Months or Most Recently Relevant to Health Maintenance Advance Directives Documents on File Type Date Recorded Patient Bunch Breaker Machine Operator Expl anation Power of Community Health Outreach Worker 09/04/2014 12:00 AM 07/2009 * Full Code [...] 5:57 PM 03/16/2009 5:32 PM Care Teams Operative Supervisor Relationship Specialty Start Date End Date Preet Huff MD [address] [place] [address] PCP - General 12/02/06
--- OUTSIDE RECORDS SUMMARY | 2024-02-29 09:47 | XMS_ITS | Encounter Summary ---
Author Organization [facility] Address [address] [place] [id number] Care Team Providers Care Striker Out Name Role Phone Preet Huff Primary Care Provider [phone] Reason for Visit * Reason Comments Altered Mental Status * Auth/Cert (Routine) Specialty Diagnoses / Procedures Referred By Contac t Referred To Contact Med Surg Diagnoses ESRD on dialysis (H) Altered mental status, unspecified altered mental status type Gastrointestinal hemorrhage, unspecified gastrointestinal hemorrhage type Anemia, unspecified type Anemia, unspecified type ESRD on dialysis (H) Altered mental status, unspecified altered mental status type Gastrointestinal hemorrhage, unspecified gastrointestinal hemorrhage type Rh 3 Medical Surgical [address] [place] [address] Referral ID Status Reason Start Date Expiration Date Visits Re quested Visits Authorized [id number] 1 1 Encounter Details Date Type Department Care Team (Late st Contact Info) Description 02/25/2024 2:50 PM CDT - 02/25/2024 3:25 PM CDT Surgery [facility] [place] [address] [place] [address] Momo Hercules MD [facility] [place] [address] [facility] [place]TOINETTE PORTILLO [id number] Esophagoscopy, gastroscopy, duodenoscopy (EGD), combined Surgery Details Date/Time Status Location OR Service Patient Class Case Class Case Type Trauma Case? 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 Sexual Orientation Not on file documented as of this encounter Last Filed Vital Signs Vital Sign Reading Time Taken Comments Blood Pressure 115/59 02/25/2024 3:25 PM CDT Pulse 86 02/25/2024 3:25 PM CDT Temperature 36.9 ??C (98.5 ??F) 02/25/2024 1 2:21 PM CDT Respiratory Rate 14 02/25/2024 3:25 PM CDT Oxygen Saturation 100% 02/25/2024 3:25 PM CDT Inhaled Oxygen Concentration - - Weight 86.6 kg (190 lb 14.7 oz) 02/24/2024 1:53 PM CDT Height 162.6 cm (5' 4) 02/24/2024 1:53 PM CDT Body Mass Index 32.77 02/24/2024 1:53 PM CDT documented in this encounter Discharge Summaries * Georgia Perez DO - 02/26/2024 3:13 PM CDT [facility] Hospitalist Discharge Summary Date of Admission: 02/24/2024 Date of Discharge: 02/26/2024 Discharging Provider: Georgia Perez DO Discharge Service: Hospitalist Service Discharge Diagnoses Acute on chronic anemia Melanotic stool Esophageal varices, non-bleeding Generalized weakness ESRD L5 abnormality Mild hyponatremia Type II DM Hypertension Hyperlipidemia Cognitive impairment Hx of DVT on chronic anticoagulation with coumadin SHIRLEY Aortic stenosis Clinically Significant Risk Factors # Obesity: Estimated body mass index is 32.77 kg/m?? as calculated from the following: Height as of this encounter: 1.626 m (5' 4). Weight as of this encounter: 86.6 kg (190 lb 14.7 oz). Follow-ups Needed After Discharge Follow-up Appointments Follow-up and recommended labs and tests Follow up with primary care provider, PREET HUFF, within 7 days for hospital follow- up. The following labs/tests are recommended: CBC. Discharge Disposition Discharged to home Condition at discharge: Stable Hospital Course Herminio Victor is a 58 year old male with PMH ESRD on dialysis, HLD, HTN, cognitive impairment, hx of DVT, aortic stenosis, SHIRLEY who presents with dark stools. No evidence of UGIB on EGD. Anemia more likely related to ESRD. Acute on chronic anemia Melanotic stool Esophageal varices Generalized weakness Patient is not a great historian. Initially was thought patient presented due to altered mental status, however after ED provider spoke with his mother, learned they were concerned about dark stools and his hemoglobin levels. He was only reporting weakness, no confusion noted by family. Patient wasseen at [place] ED on 02/22 evening for concerns about bloody stools and discharged back home. Hemodynamically stable on arrival and throughout admission. On arrival, Hgb was 6.2. Previously Hgb9.8 on 01/29, 7.8 on 02/19. After 2U pRBCs, Hgb improved and remained at ~8. Underwent EGD that showed small <5mm esophageal varices with no stigmata of bleeding, and no old or fresh blood in stomach and duodenum. Low suspicion for active acute bleed, suspect chronic worsening of anemia 2/2 ESRD. Given the varices, CT AP was done to evaluate liver, and it showed a normal liver with patent portal vein (as well as multiple anterior abdominal wall varicosities). Unclear etiology for varices. Consider further outpatient evaluation. ESRD on dialysis MWF Missed his dialysis run on 02/23. Ran on 02/24 without complication. L5 abnormality Incidental finding on CT AP of focal lytic changes involving the superior aspect of L5 with some soft tissue thickening extending rightward and anteriorly. Findings are indeterminate. While potentially a prominent Schmorl node, an underlying more aggressive process is not excluded. Patient denies any back pain, which family confirmed that he does not report at home. Could consider further evaluation with lumbar spine MRI, but given ESRD hx, risks likely outweigh benefits. Recommend outpatient follow up. Mild hyponatremia Improved with HD. Well controlled Type 2 DM A1c in October was 5.1 - not currently on any medications HTN HLD - resume statin at discharge - continue amlodipine, and metoprolol Cognitive impairment Lives with his mother and aunt who is his [employer]. He is legally blind as well. Hx of DVT on chronic anticoagulation with coumadin SHIRLEY Aortic stenosis Consultations This Hospital Stay NEPHROLOGY IP CONSULT GASTROENTEROLOGY IP CONSULT CARE MANAGEMENT / SOCIAL WORK IP CONSULT PHYSICAL THERAPY ADULT IP CONSULT PHARMACY TO DOSE WARFARIN Code Status Full Code Time Spent on this Encounter IGeorgia DO, personally saw the patient today and spent greater than 30 minutes discharging this patient. Georgia Perez DO [place] [address] MEDICAL SURGICAL [address] [facility] [address] Physical Exam Vital Signs: Temp: 97.6 ??F (36.4 ??C) Temp src: Oral BP: 129/53 Pulse: 92 Resp: 20 SpO2: 100 % O2 Device: None (Room air) Oxygen Delivery: 2 LPM Weight: 190 lbs 14.69 oz Constitutional: Awake, alert, no distress, and cooperative Cardiovascular: Regular rate and rhythm, normal S1 and S2, no S3 or S4, and no murmur noted Respiratory: No increased work of breathing, good air exchange, clear to auscultation bilaterally, no crackles or wheezing Gastrointestinal: Abdomen soft, non-tender, non-distended. BS normal. No masses, organomegaly Primary Care Physician PREET HUFF Discharge Orders Reason for your hospital stay You were in the hospital for low hemoglobin and dark stools. You underwent an EGD that did NOT showany bleeding. Your hemoglobin responded to blood transfusions and remained stable. Your hemoglobin is chronically low, which is related to your kidney disease. 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 Follow-up and recommended labs and tests Follow up with primary care provider, PREET HUFF, within 7 days for hospital follow- up. Thefollowing labs/tests are recommended: CBC. Activity Your activity upon discharge: activity as tolerated Diet Follow this diet upon discharge: Regular Diet Adult Significant Results and Procedures Results for orders placed or performed during the hospital encounter of 02/24/24 CT Head w/o Contrast Narrative EXAM: CT HEAD W/O CONTRAST 02/24/2024 10:42 AM HISTORY: Altered mental status, cocnern for ICH, on coumadin COMPARISON: No prior similar studies TECHNIQUE: Using multidetector thin collimation helical acquisition technique, axial, coronal and sagittal CT images from the skull base to the vertex were obtained without intravenous contrast. Mems Device Scientist (topogram) image(s) also obtained and reviewed. Dose [...] air cells are clear. Grossly normal orbits. Impression IMPRESSION: 1. No acute intracranial pathology. 2. Chronic small vessel ischemic disease and generalized cerebral volume loss. FLAKO ZUNIGA MD SYSTEM ID: [id number] CT Abdomen Pelvis w Contrast Narrative EXAM: CT ABDOMEN PELVIS W CONTRAST LOCATION: [facility] DATE: 02/25/2024 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 Evaluate [...] scattered degenerative changes elsewhere in the spine. Impression IMPRESSION: 1. No acute findings in the abdomen or pelvis. 2. Normal liver. Patent portal vein. Normal size spleen. 3. Tiny distal paraesophageal varicosities. Several anterior abdominal wall varicosities. 4. Focal lytic changes involving the superior aspect of L5 with some soft tissue thickening extending rightward and anteriorly. Findings are indeterminate. While potentially a prominent Schmorl node,an underlying more aggressive process is not excluded. Recommend clinical correlation and/or further evaluation with lumbar spine MRI. Discharge Medications Current Discharge Medication List CONTINUE these medications which have NOT CHANGED Details amLODIPine (NORVASC) 5 MG tablet Take 5 mg by mouth daily atorvastatin (LIPITOR) 20 MG tablet Take 1 tablet (20 mg) by mouth every evening Qty: 30 tablet, Refills: 3 Associated Diagnoses: Mixed hyperlipidemia BISACODYL PO Take 10 mg by mouth four times a week (Takes 2 x 5mg tablet = 10mg dose) Tuesday, Tuesday, Tuesday, and Tuesday !! calcium acetate (PHOSLO) 667 MG CAPS capsule Take 1 capsule (667 mg)by mouth 3 times daily with meals !! calcium acetate (PHOSLO) 667 MG CAPS capsule Take 1 capsule (667 mg) once daily with a snack lisinopril (ZESTRIL) 40 MG tablet Take 20 mg by mouth every evening metoprolol tartrate (LOPRESSOR) 100 MG tablet Take 100 mg by mouth every morning warfarin ANTICOAGULANT (COUMADIN) 5 MG tablet Take 1 tablet (5 mg) by mouth Tuesday through Tuesday !! - Potential duplicate medications found. Please discuss with provider. Allergies Allergies Allergen Reactions Dihydroxyaluminum Aminoacetate Nausea GI bleeding documented in this encounter Discharge Instructions * Discharge Instructions* Jesika Draper RN - 02/25/2024 3:30 PM CDT The patient has received a copy of the Provation Report the doctor has written and was discussed with the patient and given to primary RN prior to returning to the inpatient floor. All questions wereanswered and patient has provider's office phone number for further questions or concerns. * Attachments The following attachments cannot be sent through Care Everywhere. * Esophageal Varices (Paraguayan) documented in this encounter Medications at Time of Discharge Medication Sig Dispensed Refills Start Date End Date amLODIPine (NORVASC) 5 MG tablet Take 5 mg by mouth daily atorvastatin (LIPITOR) 20 MG tabletIndications:Mixed hyperlipidemia Take 1 tablet (20 mg) by mouth every evening 30 tablet 3 12/19/2017 BISACODYL PO Take 10 mg by mouth four times a week (Takes 2 x 5mg tablet = 10mg dose) Tuesday, Tuesday, Tuesday, and Tuesday calcium acetate (PHOSLO) 667 MG CAPS capsule Take 1 capsule (667 mg)by mouth 3 times daily with meals calcium acetate (PHOSLO) 667 MG CAPS capsule Take 1 capsule (667 mg) once daily with a snack lisinopril (ZESTRIL) 40 MG tablet Take 20 mg by mouth every evening metoprolol tartrate (LOPRESSOR) 100 MG tablet Take 100 mg by mouth every morning warfarin ANTICOAGULANT (COUMADIN) 5 MG tablet Take 1 tablet (5 mg) by mouth Tuesday through Tuesday documented as of this encounter Progress Notes * Mann Brush DO - 02/26/2024 11:28 AM CDT Neprology note EGD, CT scan results noted Pt asking for a second hamburger this am, no complaints. Plan for HD tomorrow per chronic schedule, orders placed. If discharged, will return to his outpatient [facility] unit. Mann Brush DO * Mirtha Edgar, PT - 02/25/2024 3:02 PM CDT 02/25/24 1420 Appointment Info Signing Clinician's Name / Credentials (PT) Mirtha Edgar, PT, DPT Living Environment People in Home parent(s);other (see comments) Current Living Arrangements house Transportation Anticipated family or friend will provide Living Environment Comments Patient lives in a house with his mom (Arianna), aunt (Thelma) who is alsohis [employer], cousin (Aron) who is also his [employer]ER, and another cousin (Javon). Patient reports there are no stairs at home. Self-Care Usual Activity Tolerance good Current Activity Tolerance moderate Equipment Currently Used at Home none Fall history within last six months no (Per patient) Activity/Exercise/Self-Care Comment Patient's family provides 10 hours of [employer] services per day, cousin cares for patient Tuesday-Tue and aunt assists on Tuesday. Patient does not use AD at baseline. General Information Onset of Illness/Injury or Date of Surgery 02/24/24 Referring Physician Gómez Blackwood PA-C Patient/Family Therapy Goals Statement (PT) Patient wants to eat. (NPO for EGD this afternoon.) Pertinent History of Current Problem (include personal factors and/or comorbidities that impact thePOC) 58 year old male with PMH ESRD on dialysis, HLD, HTN, cognitive impairment, hx of DVT, aortic stenosis, SHIRLEY who presents with dark stools and altered mental status. Existing Precautions/Restrictions fall Cognition Affect/Mental Status (Cognition) WFL Orientation Status (Cognition) oriented to;person Follows Commands (Cognition) follows one-step commands;over 90% accuracy;delayed response/completion;increased processing time needed Pain Assessment Patient Currently in Pain No Integumentary/Edema Integumentary/Edema Comments Age-related skin changes, dialysis shunt L thigh Posture Posture Forward head position;Protracted shoulders Range of Motion (ROM) Range of Motion ROM is WFL Strength (Manual Muscle Testing) Strength (Manual Muscle Testing) Able to perform R SLR;Able to perform L SLR;Deficits observed during functional mobility Strength Comments Notes progressive weakness in past few weeks. Bed Mobility Comment, (Bed Mobility) Patient SBA for supine > sit, HOB elevate and UE support on R bed rail. Transfers Comment, (Transfers) CGA sit <> stand. Gait/Stairs (Locomotion) Comment, (Gait/Stairs) CGA 10 ft ambulation without AD. Slow gait speed and wide DENIS. Balance Balance Comments Impaired dynamic balance Sensory Examination Sensory Perception patient reports no sensory changes Sensory Perception Comments Noted to be legally blind per chart. Clinical Impression Criteria for Skilled Therapeutic Intervention Yes, treatment indicated PT Diagnosis (PT) Impaired functional mobility Influenced by the following impairments Cognitive status, weakness, deconditioning, impaired balance, dialysis dependent Functional limitations due to impairments Impaired independence with bed mobility, transfers, and gait Clinical Presentation (PT Evaluation Complexity) evolving Clinical Presentation Rationale Clinical judgement, PMH, social support Clinical Decision Making (Complexity) moderate complexity Planned Therapy Interventions (PT) balance training;bed mobility training;gait training;home exercise program;neuromuscular re-education;patient/family education;postural re-education;strengthening;transfer training;progressive activity/exercise Risk & Benefits of therapy have been explained evaluation/treatment results reviewed;care plan/treatment goals reviewed;risks/benefits reviewed;participants voiced agreement with care plan;participants included;patient PT Total Evaluation Time PT Eval, Moderate Complexity Minutes (45334) 8 Physical Therapy Goals PT Frequency Daily PT Predicted Duration/Target Date for Goal Attainment 02/29/24 PT Goals Bed Mobility;Transfers;Gait PT: Bed Mobility Supine to/from sit;Rolling;Supervision/stand-by assist PT: Transfers Supervision/stand-by assist;Sit to/from stand;Bed to/from chair PT: Gait Supervision/stand-by assist;150 feet Interventions Interventions Quick Adds Therapeutic Activity Therapeutic Activity Therapeutic Activities: dynamic activities to improve functional performance Minutes (59907) 8 Symptoms Noted During/After Treatment Fatigue Treatment Detail/Skilled Intervention Patient supine in bed on arrival, awake. Adjusted O2 foreheadsensor as poor sensor strength. Patient SBA for supine > sit, needing increased time to come to sitting. Maintains sitting balance SBA. Figure 4 to don B socks while seated on EOB. Patient performs x6 repeated sit <> stands from bed CGA with cues for upright standing posture. Requires UE support to facilitate sit > stand. Patient ambulates 70 ft without assistive device, CGA. Patient ambulates with wide DENIS, no overt loss of balance. SBA to return to bed at end of session. Call light in reach and bed alarm activated. PT Discharge Planning PT Plan Progress gait distance, LE strengthening exercises PT Discharge Recommendation (DC Rec) home with assist PT Rationale for DC Rec Patient mobilizing with CGA, no assistive device. Patient lives with family, has 10 hours of [employer] assist per day. Anticipate discharge home with family assisting. May benefit from home exercise program to address strength, balance, and endurance deficits. PT Brief overview of current status Ax1 Total Session Time Timed Code Treatment Minutes 8 Total Session Time (sum of timed and untimed services) 16 * Molly Simms, RN - 02/25/2024 10:34 AM CDT Potassium Date Value Ref Range Status 02/25/2024 5.4 (H) 3.4 - 5.3 mmol/L Final 01/24/2018 4.3 3.4 - 5.3 mmol/L Final Hemoglobin Date Value Ref Range Status 02/25/2024 7.8 (L) 13.3 - 17.7 g/dL Final 02/25/2024 7.8 (L) 13.3 - 17.7 g/dL Final 01/24/2018 8.2 (L) 13.3 - 17.7 g/dL Final Creatinine Date Value Ref Range Status 02/25/2024 10.14 (H) 0.67 - 1.17 mg/dL Final 01/25/2019 9.17 (H) 0.66 - 1.25 mg/dL Final Urea Nitrogen Date Value Ref Range Status 02/25/2024 102.6 (H) 8.0 - 23.0 mg/dL Final 01/24/2018 78 (H) 7 - 30 mg/dL Final Sodium Date Value Ref Range Status 02/25/2024 126 (L) 135 - 145 mmol/L Final Comment: Reference intervals for this test were updated on 07/05/2023 to more accurately reflect our healthypopulation. There may be differences in the flagging of prior results with similar values performedwith this method. Interpretation of those prior results can be made in the context of the updated reference intervals. 01/24/2018 131 (L) 133 - 144 mmol/L Final INR Date Value Ref Range Status 02/25/2024 3.00 (H) 0.85 - 1.15 Final 03/18/2020 2.97 (H) 0.86 - 1.14 Final DIALYSIS PROCEDURE NOTE Hepatitis status of previous patient on machine log was checked and verified ok to use with this patients hepatitis status. Patient dialyzed for 3.5 hrs. on a K2 bath with a net fluid removal of 2.5L. A BFR of 450 ml/min was obtained via a AVF using 15 gauge needles. The treatment plan was discussed with Dr. Brush during the treatment. Total heparin received during the treatment: 0 units. Needle cannulation sites held x 5 min. Meds given: none Complications: none Person educated: patient. Knowledge base moderate. Barriers to learning: possible cognitive delays/deficiencies . Educated on procedure via verbal mode. Patient verbalized understanding. ICEBOAT? Timeout performed pre-treatment I: Patient was identified using 2 identifiers C: Consent Signed Yes E: Equipment preventative maintenance is current and dialysis delivery system OK to use B: Hepatitis B Surface Antigen: Latest Reference Range & Units 02/25/24 06:45 Hep B Surface Agn Nonreactive Nonreactive Hepatitis B Surface Antibody: Unknow; Draw Date: 02/25/24 O: Dialysis orders present and complete prior to treatment A: Vascular access verified and assessed prior to treatment T: Treatment was performed at a clinically appropriate time ?: Patient was allowed to ask questions and address concerns prior to treatment See Adult Hemodialysis flowsheet in [facility] for further details and post assessment. Machine water alarm in place and functioning. Transducer pods intact and checked every 15min. Pt returned via bed. Chlorine/Chloramine water system checked every 4 hours. Outpatient Dialysis at [facility] Patient weight shifting, unable to make large shifts due to AVF in thigh Post treatment report given to Andre Franklin RN, RN Please remove patient dressing on AVF and AVG needle sites 24 hours after dialysis. If leaking occurs please apply a Band-Aid. * Georgia Perez, - 02/25/2024 9:11 AM CDT [facility] Medicine Progress Note - Hospitalist Service Date of Admission: 02/24/2024 Assessment & Plan Herminio Victor is a 58 year old male with PMH ESRD on dialysis, HLD, HTN, cognitive impairment, hx of DVT, aortic stenosis, SHIRLEY who presents with dark stools. Patient is not a great historian. Initially was thought patient presented due to altered mental status, however after ED provider spoke with his mother, learned they were concerned about dark stools.Mother was also worried about his hemoglobin levels. The patient mentation was slightly off this morning. They report increased weakness which is new for him the last couple days. Denies any chest pain, SOB, abdominal pain, or dark stools. Per his Aunt, patient was seen at [place] ED on 02/22 evening for concerns about bloody stools and discharged back home. Concern for acute blood loss anemia Melanotic stool Generalized weakness Hemoglobin 9.8 on 01/29, 7.8 on 02/19. With a hemoglobin of 6.2 today, concern for dark stool and positive fecal occult, biggest would be concern for GI bleeding. 1 unit of PRBC in the ED. CT head shows no acute intracranial pathology. Required an additional 1U pRBCs on 02/23. Hgb improved to 8.5. Had melena overnight but no BM today. - GI consult - continue IV Protonix BID - q 6 hr hemoglobin checks - NPO for EGD - hold warfarin for now, INR 3.0 this morning - 1x dose of IV Vitamin K - PT consult ESRD on dialysis MWF Missed his dialysis run on 02/23. - Nephrology consult for dialysis - Last HD 02/24 here Mild hyponatremia Suspect it will improve with HD. - repeat BMP in AM Well controlled Type 2 DM A1c in October was 5.1 - not currently on any medications HTN HLD - resume statin at discharge - continue amlodipine, and metoprolol Cognitive impairment Lives with his mother and aunt who is his [employer]. He is legally blind as well. Hx of DVT on chronic anticoagulation with coumadin SHIRLEY Aortic stenosis Diet: NPO per Anesthesia Guidelines for Procedure/Surgery Except for: Meds DVT Prophylaxis: Pneumatic Compression Devices Valadez Catheter: Not present Lines: None Cardiac Monitoring: None Code Status: Full Code Clinically Significant Risk Factors Present on Admission # Hyperkalemia: Highest K = 5.4 mmol/L in last 2 days, will monitor as appropriate # Hyponatremia: Lowest Na = 126 mmol/L in last 2 days, will monitor as appropriate # Hypocalcemia: Lowest Ca = 8 mg/dL in last 2 days, will monitor and replace as appropriate # Drug Induced Coagulation Defect: home medication list includes an anticoagulant medication # Thrombocytopenia: Lowest platelets = 117 in last 2 days, will monitor for bleeding # Hypertension: Home medication list includes antihypertensive(s) # Obesity: Estimated body mass index is 32.77 kg/m?? as calculated from the following: Height as of this encounter: 1.626 m (5' 4). Weight as of this encounter: 86.6 kg (190 lb 14.7 oz). Disposition Plan Medically Ready for Discharge: Anticipated in 2-4 Days Georgia Perez DO Hospitalist Service [facility] Securely message with test company (more info) Text page via [employer] Paging/Directory Interval History No acute overnight events. Seen during HD. No further bowel movements today. Feels fine, no new complaints. Physical Exam Vital Signs: Temp: 98.5 ??F (36.9 ??C) Temp src: Oral BP: 102/53 Pulse: 79 Resp: 16 SpO2: 98 % O2 Device: None (Room air) Weight: 190 lbs 14.69 oz Constitutional: Awake, alert, no distress, and cooperative Cardiovascular: Regular rate and rhythm, normal S1 and S2, no S3 or S4, and no murmur noted Respiratory: No increased work of breathing, good air exchange, clear to auscultation bilaterally, no crackles or wheezing Gastrointestinal: Abdomen soft, non-tender, non-distended. BS normal. No masses, organomegaly Medical Decision Making 45 MINUTES SPENT BY ME on the date of service doing chart review, history, exam, documentation & further activities per the note. Data I have personally reviewed the following data over the past 24 hrs: 6.6 \ 8.5 (L) / 117 (L) 126 (L) 87 (L) 102.6 (H) / 90 5.4 (H) 21 (L) 10.14 (H) \ INR: 3.00 (H) PTT: N/A D-dimer: N/A Fibrinogen: N/A * Mann Brush DO - 02/25/2024 8:52 AM CDT Renal Medicine Progress Note Assessment/Plan: Herminio Victor is a 58 year old male who was admitted on 02/24/2024. Assessment: 1) End-stage renal disease: Chronic Tuesday dialysis at [facility] Security Systems Administrator: Dr. Holman Access: Left thigh AV graft, 15-gauge needles Weight 82 kg 3.5 hours Rx: 2K bath, sodium 135, heparin 2000 load and 500 and hour maintenance CKD-MBD: Labs earlier this week with phosphorus 5.9, calcium corrected 8.8 and PTH 397. Hypertension: Outpatient values appear well-controlled. Achieved his target weight of 82 kg last outpatient 1. Suspect admission weight not accurate. Mild hyponatremia noted, this is a chronic issue based on outpatient labs. Lab values range from 126-133 as outpatient. Will correct with HD today. 2) anemia: Recent outpatient values with hemoglobin on 01/30/2024 at 9.8, most recent 02/20/2024 at 7.8. Patient receives Mircera 60 mcg every 2 weeks, just increased to 100 mcg based on recent hemoglobin value. 3) reported agitation, mentation changes prior to admission. This is not related to his ESRD statusdirectly. Other: Cognitive impairment Type 2 diabetes History DVT, chronic anticoagulation with Coumadin Plan/Recs: 1) dialysis today, UF as tolerated 2) next dialysis 02/27/2024 3) anemia, GI bleeding evaluation ongoing, possible EGD Mann Brush DO [facility] consultants Office: [phone] Interval History: Patient seen during dialysis, admission weight 86.6 kg but lower blood pressures limiting UF today.Patient denies any complaints. Appears to have a stable hemoglobin. Medications and Allergies: Current Facility-Administered Medications Medication Dose Route Frequency Provider Last Rate Last Admin pantoprazole (PROTONIX) IV push injection 40 mg 40 mg Intravenous BID Gómez Blackwood PA-C 40 mg at02/24/242152 sodium chloride (PF) 0.9% PF flush 3 mL 3 mL Intracatheter Q8H Gómez Blackwood PA-C 3 mL at 02/24/242152 sodium chloride 0.9% BOLUS 250 mL 250 mL Intravenous Once in dialysis/CRRT Mann Brush, sodium chloride 0.9% BOLUS 300 mL 300 mL Hemodialysis Machine Once Mann Brush, Allergies Allergen Reactions Dihydroxyaluminum Aminoacetate Nausea GI bleeding Physical Exam: Vitals were reviewed BP 122/55 Pulse 78 Temp 98.5 ??F (36.9 ??C) (Oral) Resp 16 Ht 1.626 m (5' 4) Wt 86.6 kg (190 lb 14.7 oz) SpO2 98% BMI 32.77 kg/m?? Wt Readings from Last 3 Encounters: 02/24/24 86.6 kg (190 lb 14.7 oz) 02/11/22 87.5 kg (193 lb) 10/02/19 83.9 kg (185 lb) Intake/Output Summary (Last 24 hours) at 02/25/2024 0852 Last data filed at 02/25/2024 0032 Gross per 24 hour Intake 1200 ml Output -- Net 1200 ml GENERAL: alert, NAD HEENT: Normocephalic. No gross abnormalities. CV: RRR, 2/6 systolic murmur noted. NO edema. Left thigh loop graft with needles in plaace RESP: Clear bilaterally with good efforts GI: Abdomen soft/nt/nd, BS normal. SKIN: no suspicious lesions or rashes, dry to touch NEURO: Grossly nonfocal PSYCH: affect appropriate Data: BMP Recent Labs Lab 02/25/24 0645 02/24/24 0958 NA 126* 130* POTASSIUM 5.4* 4.2 CHLORIDE 87* 88* JON 8.0* 8.3* CO2 * 24 BUN 102.6* 76.2* CR 10.14* 8.60* GLC 90 147* CBC Recent Labs Lab 02/25/24 0645 02/24/24 1751 02/24/24 0958 WBC 6.6 -- 6.4 HGB 7.8* 7.8* 6.7* 6.2* HCT 24.3* -- 20.0* MCV 91 -- 96 PLT 117* -- 133* Lab Results Component Value Date AST 21 02/24/2024 ALT 21 02/24/2024 ALKPHOS 72 02/24/2024 BILITOTAL 0.5 02/24/2024 DARLINE 26 02/24/2024 Lab Results Component Value Date INR 2.46 (H) 02/24/2024 Attestation: I have reviewed today's vital signs, notes, medications, labs and imaging. Mann Brush DO [facility] Consultants - Nephrology Office: [phone] * Mazin Srivastava MD - 02/24/2024 6:19 PM CDT I was called for hemoglobin of 6.7. I reviewed the chart. She was admitted earlier with concern forGI bleed. Hemoglobin in the ED was 6.2. She was transfused 1 unit of red blood cells and hemoglobinrose to 6.7. Patient is hemodynamically stable. I have ordered transfusion of 1 unit of red blood cells and conditional transfusion for hemoglobin of 7 or less. Patient does have hemoglobin checks every 6 hours. Gastroenterology has been consulted. * Evie Ann RN - 02/24/2024 6:17 PM CDT DATE/TIME OF CALL RECEIVED FROM LAB: 02/24/24 at 6:17 PM LAB TEST: Hemoglobin LAB VALUE: 6.7 PROVIDER NOTIFIED?: Yes PROVIDER NAME: Carola DATE/TIME LAB VALUE REPORTED TO PROVIDER: [id number] MECHANISM OF PROVIDER NOTIFICATION: Page PROVIDER RESPONSE: Orders to transfuse and conditional orders if <7 documented in this encounter H&P Notes * Gómez Blackwood PA-C - 02/24/2024 12:12 PM CDT [facility] History and Physical - Hospitalist Service Date of Admission: 02/24/2024 Assessment & Plan Herminio Victor is a 58 year old male with PMH ESRD on dialysis, HLD, HTN, cognitive impairment, hx of DVT, aortic stenosis, SHIRLEY who presents with dark stools. Patient is not a great historian. Initially was thought patient presented due to altered mental status, however after ED provider spoke with his mother, learned they were concerned about dark stools.Mother was also worried about his hemoglobin levels. The patient mentation was slightly off this morning. They report increased weakness which is new for him the last couple days. Denies any chest pain, SOB, abdominal pain, or dark stools. Per his Aunt, patient was seen at [place] ED on 02/22 evening for concerns about bloody stools. Was discharge back home. Concern for acute blood loss anemia Melanotic stool Generalized weakness Hemoglobin 9.8 on 01/29, 7.8 on 02/19. With a hemoglobin of 6.2 today, concern for dark stool and positive fecal occult, biggest would be concern for GI bleeding. 1 unit of PRBC in the ED. CT head shows no acute intracranial pathology. Plan: - GI consult - continue IV Protonix BID - q 6 hr hemoglobin checks - NPO at midnight pending further recommendations from GI - hold warfarin for now, will need pharmacy consult when ok to resume - PT consult ESRD on dialysis MWF Missed his dialysis run on 02/23. - Nephrology consult for dialysis Mild hyponatremia - repeat BMP in AM Well controlled Type 2 DM A1c in October was 5.1 - not currently on any medications HTN HLD - resume statin at discharge - continue amlodipine, and metoprolol Cognitive impairment Lives with his mother and aunt who is his TREE [employer]UT [employer] FARMER. He is legally blind as well. Hx of DVT on chronic anticoagulation with coumadin SHIRLEY Aortic stenosis Diet: Regular diet, NPO at midnight incase want to scope DVT Prophylaxis: Pneumatic Compression Devices Valadez Catheter: Not present Lines: None Cardiac Monitoring: None Code Status: Full code Clinically Significant Risk Factors Present on Admission # Hypocalcemia: Lowest Ca = 8.3 mg/dL in last 2 days, will monitor and replace as appropriate # Drug Induced Coagulation Defect: home medication list includes an anticoagulant medication # Hypertension: Home medication list includes antihypertensive(s) Disposition Plan Medically Ready for Discharge: Anticipated in 2-4 Days The patient's care was discussed with the Patient, Patient's Family, and ED provider . GÓMEZ Blackwood PA-C Hospitalist Service [facility] Securely message with test company (more info) Text page via [facility] Paging/Directory Chief Complaint Dark stools History is obtained from the patient and ED provider History of Present Illness Herminio Victor is a 58 year old male with PMH ESRD on dialysis, HLD, HTN, cognitive impairment, hx of DVT, aortic stenosis, SHIRLEY who presents with dark stools. Patient is not a great historian. Initially was thought patient presented due to altered mental status, however after ED provider spoke with his mother, learned they were concerned about dark stools.Mother was also worried about his hemoglobin levels. The patient mentation was slightly off this morning. They report increased weakness which is new for him the last couple days. Denies any chest pain, SOB, abdominal pain, or dark stools. Per his Aunt, patient was seen at [place] ED on 02/22 evening for concerns about bloody stools. Was discharge back home. In the ED, afebrile, pressure 105/49, heart rate 76, respirations 12, oxygen 100% on room air. CMP notable for sodium of 130, chloride 88, creatinine 8.6, anion gap 18. CBC notable for hemoglobin of 6.2, platelets 133. INR 2.46. CT head shows no acute intracranial pathology. Received 1 unit of red blood cells in ED. Past Medical History Past Medical History: Diagnosis Date A-V fistula (H) left forearm Anemia Anemia Blind Chronic in-center hemodialysis status (H) Cognitive deficits Diabetes mellitus (H) DVT (deep venous thrombosis) (H) ESRD (end stage renal disease) (H) dialysis T--Tue History of staph septicemia 12/20/2015 Hyperkalemia Hyperlipemia Hyperlipidaemia Hypertension Hypertension Kidney disease Kidney disease Orthostasis Retinopathy Sleep apnea CPAP Syncope Past Surgical History Past Surgical History: Procedure Laterality Date ABDOMEN SURGERY AV FISTULA OR GRAFT ARTERIAL BYPASS GRAFT FEMOROPOPLITEAL 08/09/2012 Procedure: BYPASS GRAFT FEMOROPOPLITEAL; REDO RIGHT PROFUNDUS FEMORAL TO COMMON FEMORAL ACCESS GRAFT WITH PTFE (POLY TETRA FLOROETHELINE GRAFT), REMOVAL COMMON FEMORAL VEIN STENT, GRAFT EMBOLECTOMY; Surgeon: Rober Saravia MD; Location: OR C PLACE CATH AV DIALYSIS SHUNT left thigh 05/23 CREATE FISTULA ARTERIOVENOUS LOWER EXTREMITY 06/20/2013 Procedure: CREATE FISTULA ARTERIOVENOUS LOWER EXTREMITY; LEFT GROIN PTFE DIALYSIS ACCESS; Surgeon: Rober Saravia MD; Location: OR CREATE FISTULA ARTERIOVENOUS LOWER EXTREMITY Left 07/02/2015 Procedure: CREATE FISTULA ARTERIOVENOUS LOWER EXTREMITY; Surgeon: Rober Saravia MD; Location: OR CREATE FISTULA ARTERIOVENOUS LOWER EXTREMITY Left 03/05/2016 Procedure: CREATE FISTULA ARTERIOVENOUS LOWER EXTREMITY; Surgeon: Rober Saravia MD; Location: OR CREATE FISTULA ARTERIOVENOUS UPPER EXTREMITY 10/20/2011 Procedure:CREATE FISTULA ARTERIOVENOUS UPPER EXTREMITY; VEIN PATCH RIGHT ARM ARTERIOVENOUS FISTULA WITH BOVINE PATCH; Surgeon:ROBER SARAVIA; Location: OR CREATE GRAFT LOOP ARTERIOVENOUS LOWER EXTREMITY 05/03/2012 Procedure: CREATE GRAFT LOOP ARTERIOVENOUS LOWER EXTREMITY; RIGHT GROIN LOOP GRAFT WITH CADAVER FEMORAL ARTERY; Surgeon: Rober Saravia MD; Location: OR CREATE GRAFT LOOP ARTERIOVENOUS LOWER EXTREMITY Left 08/13/2015 Procedure: CREATE GRAFT ARTERIOVENOUS LOWER EXTREMITY; Surgeon: Rober Saravia MD; Location: OR GENITOURINARY SURGERY TURP,CIRCUMCISION INSERT CATHETER VENOUS TRANSLUMBAR 08/08/2012 Procedure: INSERT CATHETER VENOUS TRANSLUMBAR; LUMBAR TUNNEL CATH PLACEMENT.; Surgeon: Michele Fuentes MD; Location: OR IR DIALYSIS FISTULOGRAM LEFT 01/25/2019 IR DIALYSIS FISTULOGRAM LEFT 10/02/2019 IR DIALYSIS FISTULOGRAM LEFT 03/18/2020 IR DIALYSIS FISTULOGRAM LEFT 02/11/2022 IRRIGATION AND DEBRIDEMENT FOOT, COMBINED Left 12/16/2017 Procedure: COMBINED IRRIGATION AND DEBRIDEMENT FOOT;; Surgeon: Rober Saravia MD; Location: OR IRRIGATION AND DEBRIDEMENT LOWER EXTREMITY, COMBINED Left 06/04/2014 Procedure: COMBINED IRRIGATION AND DEBRIDEMENT LOWER EXTREMITY; Surgeon: Rober Saravia MD; Location: [place] IRRIGATION AND DEBRIDEMENT LOWER EXTREMITY, COMBINED Left 12/19/2015 Procedure: COMBINED IRRIGATION AND DEBRIDEMENT LOWER EXTREMITY; Surgeon: Honorio Aceves MD; Location: [facility] OR REVISION FISTULA ARTERIOVENOUS LOWER EXTREMITY 05/08/2014 Procedure: REVISION FISTULA ARTERIOVENOUS LOWER EXTREMITY; Surgeon: Rober Saravia MD; Location: SH SD REVISION FISTULA ARTERIOVENOUS LOWER EXTREMITY Left 06/04/2014 Procedure: REVISION FISTULA ARTERIOVENOUS LOWER EXTREMITY; Surgeon: Rober Saravia MD; Location: SH SD REVISION FISTULA ARTERIOVENOUS LOWER EXTREMITY Left 11/19/2015 Procedure: REVISION FISTULA ARTERIOVENOUS LOWER EXTREMITY; Surgeon: Rober Saravia MD; Location: [facility] OR REVISION FISTULA ARTERIOVENOUS LOWER EXTREMITY Left 12/16/2017 Procedure: REVISION FISTULA ARTERIOVENOUS LOWER EXTREMITY; LEFT THIGH ABF FISTOGRAM, ANGIOPLASTY OFOUTFLOW VENOUS STENOSIS, BANDING LEFT ABF, IRRIGATION AND DEBRIDEMENT LEFT FOOT ULCER (C-ARM); Surgeon: Rober Saravia MD; Location: [facility] OR THROMBECTOMY LOWER EXTREMITY 08/09/2012 Procedure: THROMBECTOMY LOWER EXTREMITY;; Surgeon: Rober Saravia MD; Location: [facility] OR Prior to Admission Medications Prior to Admission Medications Prescriptions Last Dose Informant Patient Reported? Taking? AMLODIPINE BESYLATE PO [employer] Yes No Sig: Take 10 mg by mouth four times a week On Non dialysis days which is MWFSun BISACODYL PO [employer] Yes No Sig: Take 10 mg by mouth four times a week (Takes 2 x 5mg tablet = 10mg dose) Tuesday, Tuesday, Tuesday, and Tuesday Calcium Acetate, Phos Binder, (CALCIUM ACETATE PO) [employer] Yes No Sig: Take 1,334 mg by mouth 3 times daily (with meals) Takes with meals (2 x 667mg tablet) Cholecalciferol (VITAMIN D3 PO) [employer] Yes No Sig: Take 2,000 Units by mouth every evening LISINOPRIL PO [employer] Yes No Sig: Take 40 mg by mouth daily (Takes 2 x 20mg tablet = 40mg ) METOPROLOL TARTRATE PO [employer] Yes No Sig: Take 100 mg by mouth 2 times daily Take on MWFSun, on Non-dialysis days atorvastatin (LIPITOR) 20 MG tablet No No Sig: Take 1 tablet (20 mg) by mouth every evening lactulose (CHRONULAC) 10 GM/15ML solution Yes No Sig: Take 15-60 mLs by mouth daily as needed for constipation multivitamin RENAL (MULTIVITAMIN RENAL) 1 MG capsule Yes No Sig: Take 1 capsule by mouth daily omeprazole (PRILOSEC) [address] capsule Yes No Sig: Take 20 mg by mouth daily oxyCODONE IR (ROXICODONE) 5 MG tablet No No Sig: Take 1-2 tablets (5-10 mg) by mouth every 4 hours as needed for other (pain control or improvement in physical function. Hold dose for analgesic side effects.) oxyCODONE IR (ROXICODONE) 5 MG tablet No No Sig: Take 1 tablet (5 mg) by mouth daily maximum 6 tablet(s) per day warfarin (COUMADIN) 4 MG tablet No No Sig: Take 1 tablet (4 mg) by mouth daily Facility-Administered Medications: None Social History I have reviewed this patient's social history and updated it with pertinent information if needed. Social History Tobacco Use Smoking status: Never Smokeless tobacco: Never Substance Use Topics Alcohol use: No Drug use: No Allergies Allergies Allergen Reactions Dihydroxyaluminum Aminoacetate Nausea GI bleeding Physical Exam Vital Signs: Temp: 98 ??F (36.7 ??C) Temp src: Oral BP: 105/49 Pulse: 75 Resp: 12 SpO2: 100 % O2 Device: None (Room air) Weight: 0 lbs 0 oz GENERAL: Alert, Comfortable, No acute distress. Laying in bed. PSYCH: pleasant, oriented to self HEENT: Normocephalic, No scleral icterus or conjunctival injection, normal hearing HEART: Normal S1, S2 with a harsh systolic murmur, RRR LUNGS: Normal Respiratory effort. Clear to auscultation anteriorly bilaterally with no wheezing, rales or ronchi. ABDOMEN: Soft, non-tender, non distended. No peritoneal signs. EXTREMITIES: no pitting edema SKIN: Warm, dry to touch. No rash. NEUROLOGIC: Speech clear, alert & orientated x 4, no focal deficits. Medical Decision Making MANAGEMENT DISCUSSED with the following over the past 24 hours: patient, ED provider, family NOTE(S)/MEDICAL RECORDS REVIEWED over the past 24 hours: labs, imaging, progress notes Data I have personally reviewed the following data over the past 24 hrs: 6.4 \ 6.2 (LL) / 133 (L) 130 (L) 88 (L) 76.2 (H) / 147 (H) 4.2 24 8.60 (H) \ ALT: 21 AST: 21 AP: 72 TBILI: 0.5 ALB: 3.6 TOT PROTEIN: 6.3 (L) LIPASE: N/A Procal: N/A CRP: N/A Lactic Acid: 0.7 INR: 2.46 (H) PTT: N/A D-dimer: N/A Fibrinogen: N/A Imaging results reviewed over the past 24 hrs: Recent Results (from the past 24 hour(s)) CT Head w/o Contrast Narrative EXAM: CT HEAD W/O CONTRAST 02/24/2024 10:42 AM HISTORY: Altered mental status, cocnern for ICH, on coumadin COMPARISON: No prior similar studies TECHNIQUE: Using multidetector thin collimation helical acquisition technique, axial, coronal and sagittal CT images from the skull base to the vertex were obtained without intravenous contrast. Mems Device Scientist (topogram) image(s) also obtained and reviewed. Dose [...] air cells are clear. Grossly normal orbits. Impression IMPRESSION: 1. No acute intracranial pathology. 2. Chronic small vessel ischemic disease and generalized cerebral volume loss. FLAKO ZUNIGA MD SYSTEM ID: [id number] Associated attestation - Georgia Perez DO - 02/24/2024 3:46 PM CDT Physician Attestation I have reviewed and discussed with the advanced practice provider their history, physical and plan for Herminio Victor. I did not participate in a shared visit; this is an advanced practice provider only visit. Georgia Perez DO Date of Service (when I saw the patient): I did not personally see this patient today. documented in this encounter Consult Notes * Katja Bronson - 02/25/2024 12:15 PM CDTAssociated Order(s): CARE MANAGEMENT / SOCIAL WORK IP CONSULT Care Management Initial Consult General Information Assessment completed with: Family, Type of CM/SW Visit: Initial Assessment Primary Care Provider verified and updated as needed: Readmission within the last 30 days: Reason for Consult: discharge planning Advance Care Planning: Communication Assessment Patient's communication style: spoken language (Paraguayan or Bilingual) Hearing Difficulty or Deaf: no Wear Glasses or Blind: no Cognitive Cognitive/Neuro/Behavioral: .WDL except, speech Level of Consciousness: alert (slow to respond to questions) Arousal Level: opens eyes spontaneously Orientation: disoriented to, time Mood/Behavior: flat affect Best Language: 0 - No aphasia Speech: pace/rate variance Living Environment: People in home: Current living Arrangements: Able to return to prior arrangements: Family/Social Support: Care provided by: other (see comments) ([employer] who is an aunt,Thelma and cousin Aron) Provides care for: no one, unable/limited ability to care for self Marital Status: Single [employer] Description of Support System: Supportive, Involved Current Resources: Patient receiving home care services: No Community Resources: County Programs, County Worker, Dialysis Services, OP Dialysis, [employer], Transportation Services Equipment currently used at home: none Supplies currently used at home: Employment/Financial: Employment Status: unknown Financial Concerns: unknown Does the patient's insurance plan have a 3 day qualifying hospital stay waiver? No Lifestyle & Psychosocial Needs: Social Determinants of Health Food Insecurity: No Food Insecurity (06/23/2022) Received from [facility] Food Insecurity Worried About Running Out of Food in the Last Year: 1 Depression: Not at risk (05/22/2020) Received from [facility] PHQ-2 PHQ-2 Score: 0 Housing Stability: Low Risk (06/23/2022) Received from [facility] Housing Stability Unable to Pay for Housing in the Last Year: 1 Tobacco Use: Medium Risk (11/08/2023) Received from [facility] Patient History Smoking Tobacco Use: Never Smokeless Tobacco Use: Never Passive Exposure: Yes Financial Resource Strain: Low Risk (06/23/2022) Received from [facility] Financial Resource Strain Difficulty of Paying Living Expenses: 3 Difficulty of Paying Living Expenses: Not on file Alcohol Use: Not on file Transportation Needs: No Transportation Needs (06/23/2022) Received from [facility] Transportation Needs Lack of Transportation (Medical): 1 Physical Activity: Not on file Interpersonal Safety: Not on file Stress: Not on file Social Connections: Unknown (06/24/2023) Received from [facility] Social Connections Frequency of Communication with Friends and Family: Not on file Health Literacy: Not on file Functional Status: Prior to admission patient needed assistance: Dependent ADLs:: Bathing, Dressing, Grooming, Toileting Dependent IADLs:: Cleaning, Cooking, Laundry, Shopping, Meal Preparation, Medication Management, Money Management, Transportation Mental Health Status: Mental Health Status: No Current Concerns Chemical Dependency Status: Chemical Dependency Status: No Current Concerns Values/Beliefs: Spiritual, Cultural Beliefs, Jainism Practices, Values that affect care: Additional Information: Chart reviewed. Emergency numbers listed on face sheet have been updated by SW. SW called and spokewith pt's aunt Thelma [phone] who reports pt lives with his mom Arianna, aunt Thelma who is also his [employer] F[employer], cousin Aron who is also his [employer] F[employer]ER and another cousin Javon. They live in a house. Thelma reports Aron cares for pt Tue-Tue and she provides pt's care on Sundays, he receives 10 hrsof [employer] services a day. She reports he is on a CADI Waiver. She reports he does not use any assistive devices. He gets dialysis on , W, F at [facility] [phone] and gets transportation there through [facility]. Plan: SW will continue to follow pt and assist with discharge planning. Katja DUNCAN, [facility] Inpatient Care Coordination [facility] [phone] * Dinorah Allen APRN MANAGER PATIENT - 02/24/2024 2:34 PM CDTAssociated Order(s): GASTROENTEROLOGY IP CONSULT Images from the original note were not included. GASTROENTEROLOGY CONSULTATION Herminio Navarro Kayleigh [address] [place] [id number] 58 year old male Admission Date/Time: 02/24/2024 Primary Care Provider: Preet Huff We were asked to see the patient in consultation by Dr. Perez for evaluation of melena, anemia. CC: melena, AMS HPI: Herminio Victor is a 58 year old male with history of diabetes, DVT (on coumadin), anemia,HTN, hyperlipidemia, ESRD (on HD) who presents with altered mental status and concern for GIB. Labson admission notable for anemia with hemoglobin 6.2, MCV 96. There is no recent blood work available, hgb in 2018 was 8.2. Fecal occult positive. Creatinine 8.6, was not dialyzed today as he was sentto the ED. The patient has a history of cognitive impairment and is able to give me little history. Attempted to call mother, but says number not in service. History obtained from chart review. He was reportedly sent from dialysis due to concerns regarding worsening anemia altered mental status. ED note indicates that his mother had observed at least one darker colored stool. The patient denies any abdominal pain, n/v, heartburn. He does tell me he ate a turkey sandwich today. It does not appear that he has had a colonoscopy or EGD before. 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 He is on coumadin. 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) 12/16/2017 Priority: Medium Postoperative observation 03/05/2016 Priority: Medium Fever and chills 12/16/2015 Priority: Medium 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 MEDICATIONS: Prior to Admission medications Medication Sig Start Date End Date Taking? Authorizing Provider AMLODIPINE BESYLATE PO Take 10 mg by mouth four times a week On Non dialysis days which is MWFSun Unknown, Entered By History atorvastatin (LIPITOR) 20 MG tablet Take 1 tablet (20 mg) by mouth every evening 12/19/17 Estrella Guillen MD BISACODYL PO Take 10 mg by mouth four times a week (Takes 2 x 5mg tablet = 10mg dose) Tuesday, Tuesday, Tuesday, and Tuesday Reported, Patient Calcium Acetate, Phos Binder, (CALCIUM ACETATE PO) Take 1,334 mg by mouth 3 times daily (with meals) Takes with meals (2 x 667mg tablet) Reported, Patient Cholecalciferol (VITAMIN D3 PO) Take 2,000 Units by mouth every evening Unknown, Entered By History lactulose (CHRONULAC) 10 GM/15ML solution Take 15-60 mLs by mouth daily as needed for constipation Unknown, Entered By History LISINOPRIL PO Take 40 mg by mouth daily (Takes 2 x 20mg tablet = 40mg ) Reported, Patient METOPROLOL TARTRATE PO Take 100 mg by mouth 2 times daily Take on MWFSun, on Non-dialysis days Unknown, Entered By History multivitamin RENAL (MULTIVITAMIN RENAL) 1 MG capsule Take 1 capsule by mouth daily Reported, Patient omeprazole (PRILOSEC) [address] capsule Take 20 mg by mouth daily Reported, Patient oxyCODONE IR (ROXICODONE) 5 MG tablet Take 1 tablet (5 mg) by mouth daily maximum 6 tablet(s) per day 12/29/17 Rober Saravia MD oxyCODONE IR (ROXICODONE) 5 MG tablet Take 1-2 tablets (5-10 mg) by mouth every 4 hours as needed for other (pain control or improvement in physical function. Hold dose for analgesic side effects.) 12/19/17 Estrella Guillen MD warfarin (COUMADIN) 4 MG tablet Take 1 tablet (4 mg) by mouth daily 12/19/17 Estrella Guillen MD ALLERGIES: Allergies Allergen Reactions Dihydroxyaluminum Aminoacetate Nausea GI bleeding SOCIAL HISTORY: Social History Tobacco Use Smoking status: Never Smokeless tobacco: Never Substance Use Topics Alcohol use: No Drug use: No FAMILY HISTORY: Family History Family history unknown: Yes PHYSICAL EXAM: BP 121/46 (BP Location: Left arm) Pulse 86 Temp 98.6 ??F (37 ??C) (Oral) Resp 14 Ht 1.626 m(5' 4) Wt 86.6 kg (190 lb 14.7 oz) SpO2 98% BMI 32.77 kg/m?? PHYSICAL EXAM: General: lying in bed, NAD SKIN: no suspicious lesions, rashes, jaundice, or spider angiomas HEAD: normocephalic EYES: no scleral icterus, nystagmus noted RESPIRATORY: unlabored WOB CARDIOVASCULAR: murmur heard GASTROINTESTINAL: rounded, soft, active BS, non-tender to palpation JOINT/EXTREMITIES: extremities normal- no gross deformities noted, gait normal and normal muscle tone NEURO: alert, oriented to person, tells me he is in ceres, slow to respond PSYCH: KEARA LABS: I reviewed the patient's new clinical lab test results. Recent Labs Lab Test 02/24/24 0958 02/11/22 0936 03/18/20 0956 08/09/18 1520 01/24/18 0655 12/19/17 0718 12/18/17 1025 WBC 6.4 -- -- -- 3.9* -- 5.5 HGB 6.2* -- -- -- 8.2* -- 8.3* MCV 96 -- -- -- 86 -- 87 PLT 133* -- -- -- 179 -- 171 INR 2.46* 2.50* 2.97* < > 4.21* < > -- < > = values in this interval not displayed. Recent Labs Lab Test 02/24/24 0958 01/24/18 0655 12/17/17 0830 NA 130* 131* 125* POTASSIUM 4.2 4.3 5.1 CHLORIDE 88* 95 84* CO2 24 20 21 BUN 76.2* 78* 114* ANIONGAP 18* 16* 20* JON 8.3* 8.7 9.0 Recent Labs Lab Test 02/24/24 0958 12/16/15 1501 ALBUMIN 3.6 3.5 BILITOTAL 0.5 0.6 ALT 21 16 AST 21 17 ALKPHOS 72 139 LIPASE -- 154 IMAGING I personally reviewed the patient's new imaging results. CONSULTATION ASSESSMENT AND PLAN: 1. Acute on chronic anemia. 2. Dark stools. 3. ESRD. This patient is a 58 year old male with history of diabetes, DVT (on coumadin), anemia, HTN, hyperlipidemia, ESRD (on HD) who presents with altered mental status and concern for GIB. The patient's mother has reportedly observed a dark stool on at least one occasion. He is noted to have quite significant anemia with a hemoglobin of 6.2. Currently receiving pRBC transfusion. Given concern of possible melena, would benefit from EGD to evaluate for GI blood loss but has eaten already today. Causes may include erosive esophagitis, gastritis, PUD, AVM, malignancy. Anemia of chronic disease likely also contributing. Plan --NPO at midnight. --Monitor hemoglobin, stools. Transfuse as needed. --BID PPI. --Hold anticoagulation. --Expect EGD tomorrow. Will need to discuss this with his mother, attempted to call today without success. Will discuss with Dr. Hercules, GI staff. Total time spent: 45 minutes was spent providing patient care, including patient evaluation, reviewing documentation/test results, and division order analyst. Thank you for asking us to participate in the care of this patient. Dinorah Allen, ADRIAN [facility] ([facility]) [phone] Associated attestation - Momo Hercules MD - 02/24/2024 4:19 PM CDT GI/Hepatology Staff addendum This patient was discussed in detail with NPPA, seen and examined by myself, please see my findingsas outlined below. He answers few questions, unable to reach family. Report of dark stools. He denies pain. Per RN no BM while in the hospital. Physical Exam: General Appearance: alert, oriented x3, no acute distress. BP 106/40 (BP Location: Left arm) Pulse 92 Temp 97.8 ??F (36.6 ??C) (Oral) Resp 18 Ht 1.626m (5' 4) Wt 86.6 kg (190 lb 14.7 oz) SpO2 100% BMI 32.77 kg/m?? : Eye: sclera anicteric. GI: Soft, NABS, NT/ND. Neuro: no asterixis. COMMENTS: Reviewed the patient's pertinent lab and imaging results. Assessment and Plan: 58 year old male with normocytic anemia. Unclear if he is having GI blood loss. He is scheduled to have dialysis tomorrow, hopefully his mentation will improve following this. I would recommend EGD, would wait until after dialysis unless he becomes unstable. Total time spent on patient care activities 23 minutes Momo Hercules MD * Mann Brush, DO - 02/24/2024 12:59 PM CDTAssociated Order(s): NEPHROLOGY IP CONSULT [facility] Nephrology Consultation Date of Admission: 02/24/2024 Assessment & Plan Herminio Victor is a 58 year old male who was admitted on 02/24/2024. Assessment: 1) End-stage renal disease: Chronic Tuesday dialysis at [facility] Security Systems Administrator: Dr. Holman Access: Left thigh AV graft, 15-gauge needles Weight 82 kg 3.5 hours Rx: 2K bath, sodium 135, heparin 2000 load and 500 and hour maintenance CKD-MBD: Labs earlier this week with phosphorus 5.9, calcium corrected 8.8 and PTH 397. Hypertension: Outpatient values appear well-controlled. Achieved his target weight of 82 kg. Mild hyponatremia noted, this is a chronic issue based on outpatient labs. Lab values range from 126-133 2) anemia: Recent outpatient values with hemoglobin on 01/30/2024 at 9.8, most recent 02/20/2024 at 7.8. Patient receives Mircera 60 mcg every 2 weeks, just increased to 100 mcg based on recent hemoglobin value. Other: Cognitive impairment Type 2 diabetes History DVT, chronic anticoagulation with Coumadin Plan/Recs: 1) no urgency for hemodialysis today. Orders placed and discussed with dialysis nurse for dialysis tomorrow. No heparin will be used. Goal UF to target weight of 82 kg 2) after tomorrow, next dialysis session per routine on 02/27/2024. 3) anemia, GI bleeding workup per hospitalist DO [facility] - Nephrology [phone] Reason for Consult I was asked to see the patient for ESRD management History is obtained from the patient and chart review. History of Present Illness Herminio Victor is a 58 year old male who presents to the emergency room today with some concerns of anemia, GI bleeding. Also some agitation and altered mentation. Patient dialyzes Wednesdays and Fridays at [facility]. Found to have hemoglobin of 6.2 prompting transfusion and admission. Patient received 250 cc normal saline bolus, started on IV Protonix. Patient seen in the emergency room, only complaining of feeling some coolness and wanting more blankets. Laying supine without any supplemental oxygen and denies any dyspnea. Reports dialysis has been going routinely with no problems with his left thigh access. Note reviewed from dialysis unit, last visit by physician spanish interpreter/translator on 02/13/2024. Past Medical History I have reviewed this patient's medical history and updated it with pertinent information if needed. Past Medical History: Diagnosis Date A-V fistula (H) left forearm Anemia Anemia Blind Chronic in-center hemodialysis status (H) Cognitive deficits Diabetes mellitus (H) DVT (deep venous thrombosis) (H) ESRD (end stage renal disease) (H) dialysis T--Tue History of staph septicemia 12/20/2015 Hyperkalemia Hyperlipemia Hyperlipidaemia Hypertension Hypertension Kidney disease Kidney disease Orthostasis Retinopathy Sleep apnea CPAP Syncope Past Surgical History I have reviewed this patient's surgical history and updated it with pertinent information if needed. Past Surgical History: Procedure Laterality Date ABDOMEN SURGERY AV FISTULA OR GRAFT ARTERIAL BYPASS GRAFT FEMOROPOPLITEAL 08/09/2012 Procedure: BYPASS GRAFT FEMOROPOPLITEAL; REDO RIGHT PROFUNDUS FEMORAL TO COMMON FEMORAL ACCESS GRAFT WITH PTFE (POLY TETRA FLOROETHELINE GRAFT), REMOVAL COMMON FEMORAL VEIN STENT, GRAFT EMBOLECTOMY; Surgeon: Rober Saravia MD; Location: OR C PLACE CATH AV DIALYSIS SHUNT left thigh 05/23 CREATE FISTULA ARTERIOVENOUS LOWER EXTREMITY 06/20/2013 Procedure: CREATE FISTULA ARTERIOVENOUS LOWER EXTREMITY; LEFT GROIN PTFE DIALYSIS ACCESS; Surgeon: Rober Saravia MD; Location: OR CREATE FISTULA ARTERIOVENOUS LOWER EXTREMITY Left 07/02/2015 Procedure: CREATE FISTULA ARTERIOVENOUS LOWER EXTREMITY; Surgeon: Rober Saravia MD; Location: OR CREATE FISTULA ARTERIOVENOUS LOWER EXTREMITY Left 03/05/2016 Procedure: CREATE FISTULA ARTERIOVENOUS LOWER EXTREMITY; Surgeon: Rober Saravia MD; Location: OR CREATE FISTULA ARTERIOVENOUS UPPER EXTREMITY 10/20/2011 Procedure:CREATE FISTULA ARTERIOVENOUS UPPER EXTREMITY; VEIN PATCH RIGHT ARM ARTERIOVENOUS FISTULA WITH BOVINE PATCH; Surgeon:ROBER SARAVIA; Location: OR CREATE GRAFT LOOP ARTERIOVENOUS LOWER EXTREMITY 05/03/2012 Procedure: CREATE GRAFT LOOP ARTERIOVENOUS LOWER EXTREMITY; RIGHT GROIN LOOP GRAFT WITH CADAVER FEMORAL ARTERY; Surgeon: Rober Saravia MD; Location: OR CREATE GRAFT LOOP ARTERIOVENOUS LOWER EXTREMITY Left 08/13/2015 Procedure: CREATE GRAFT ARTERIOVENOUS LOWER EXTREMITY; Surgeon: Rober Saravia MD; Location: OR GENITOURINARY SURGERY TURP,CIRCUMCISION INSERT CATHETER VENOUS TRANSLUMBAR 08/08/2012 Procedure: INSERT CATHETER VENOUS TRANSLUMBAR; LUMBAR TUNNEL CATH PLACEMENT.; Surgeon: Michele Fuentes MD; Location: OR IR DIALYSIS FISTULOGRAM LEFT 01/25/2019 IR DIALYSIS FISTULOGRAM LEFT 10/02/2019 IR DIALYSIS FISTULOGRAM LEFT 03/18/2020 IR DIALYSIS FISTULOGRAM LEFT 02/11/2022 IRRIGATION AND DEBRIDEMENT FOOT, COMBINED Left 12/16/2017 Procedure: COMBINED IRRIGATION AND DEBRIDEMENT FOOT;; Surgeon: Rober Saravia MD; Location: OR IRRIGATION AND DEBRIDEMENT LOWER EXTREMITY, COMBINED Left 06/04/2014 Procedure: COMBINED IRRIGATION AND DEBRIDEMENT LOWER EXTREMITY; Surgeon: oRber Saravia MD; Location: SD IRRIGATION AND DEBRIDEMENT LOWER EXTREMITY, COMBINED Left 12/19/2015 Procedure: COMBINED IRRIGATION AND DEBRIDEMENT LOWER EXTREMITY; Surgeon: Honorio Aceves MD; Location: [facility] OR REVISION FISTULA ARTERIOVENOUS LOWER EXTREMITY 05/08/2014 Procedure: REVISION FISTULA ARTERIOVENOUS LOWER EXTREMITY; Surgeon: Rober Saravia MD; Location: [facility] SD REVISION FISTULA ARTERIOVENOUS LOWER EXTREMITY Left 06/04/2014 Procedure: REVISION FISTULA ARTERIOVENOUS LOWER EXTREMITY; Surgeon: Rober Saravia MD; Location: [facility] SD REVISION FISTULA ARTERIOVENOUS LOWER EXTREMITY Left 11/19/2015 Procedure: REVISION FISTULA ARTERIOVENOUS LOWER EXTREMITY; Surgeon: Rober Saravia MD; Location: [facility] OR REVISION FISTULA ARTERIOVENOUS LOWER EXTREMITY Left 12/16/2017 Procedure: REVISION FISTULA ARTERIOVENOUS LOWER EXTREMITY; LEFT THIGH ABF FISTOGRAM, ANGIOPLASTY OFOUTFLOW VENOUS STENOSIS, BANDING LEFT ABF, IRRIGATION AND DEBRIDEMENT LEFT FOOT ULCER (C-ARM); Surgeon: Rober Saravia MD; Location: [facility] OR THROMBECTOMY LOWER EXTREMITY 08/09/2012 Procedure: THROMBECTOMY LOWER EXTREMITY;; Surgeon: Rober Saravia MD; Location: [facility] OR Prior to Admission Medications Prior to Admission Medications Prescriptions Last Dose Informant Patient Reported? Taking? AMLODIPINE BESYLATE PO [employer] [place] [employer] Yes No Sig: Take 10 mg by mouth four times a week On Non dialysis days which is MWFSun BISACODYL PO [employer] Yes No Sig: Take 10 mg by mouth four times a week (Takes 2 x 5mg tablet = 10mg dose) Tuesday, Tuesday, Tuesday, and Tuesday Calcium Acetate, Phos Binder, (CALCIUM ACETATE PO) [employer] [place] Yes No Sig: Take 1,334 mg by mouth 3 times daily (with meals) Takes with meals (2 x 667mg tablet) Cholecalciferol (VITAMIN D3 PO) [employer] Yes No Sig: Take 2,000 Units by mouth every evening LISINOPRIL PO [employer] Yes No Sig: Take 40 mg by mouth daily (Takes 2 x 20mg tablet = 40mg ) METOPROLOL TARTRATE PO [employer] Yes No Sig: Take 100 mg by mouth 2 times daily Take on MWFSun, on Non-dialysis days atorvastatin (LIPITOR) 20 MG tablet No No Sig: Take 1 tablet (20 mg) by mouth every evening lactulose (CHRONULAC) 10 GM/15ML solution Yes No Sig: Take 15-60 mLs by mouth daily as needed for constipation multivitamin RENAL (MULTIVITAMIN RENAL) 1 MG capsule Yes No Sig: Take 1 capsule by mouth daily omeprazole (PRILOSEC) [address] capsule Yes No Sig: Take 20 mg by mouth daily oxyCODONE IR (ROXICODONE) 5 MG tablet No No Sig: Take 1-2 tablets (5-10 mg) by mouth every 4 hours as needed for other (pain control or improvement in physical function. Hold dose for analgesic side effects.) oxyCODONE IR (ROXICODONE) 5 MG tablet No No Sig: Take 1 tablet (5 mg) by mouth daily maximum 6 tablet(s) per day warfarin (COUMADIN) 4 MG tablet No No Sig: Take 1 tablet (4 mg) by mouth daily Facility-Administered Medications: None Allergies Allergies Allergen Reactions Dihydroxyaluminum Aminoacetate Nausea GI bleeding Social History I have reviewed this patient's social history and updated it with pertinent information if needed. Herminio Victor reports that he has never smoked. He has never used smokeless tobacco. He reports that he does not drink alcohol and does not use drugs. Family History I have reviewed this patient's family history and updated it with pertinent information if needed. Family History Family history unknown: Yes Review of Systems The 10 point Review of Systems is negative other than noted in the HPI. Physical Exam Temp: 97.4 ??F (36.3 ??C) Temp src: Oral BP: 136/61 Pulse: 75 Resp: 13 SpO2: 100 % O2 Device: None (Room air) Vital Signs with Ranges Temp: [97.4 ??F (36.3 ??C)-98 ??F (36.7 ??C)] 97.4 ??F (36.3 ??C) Pulse: [74-78] 75 Resp: [11-17] 13 BP: (98-136)/(45-61) 136/61 SpO2: [100 %] 100 % 0 lbs 0 oz GENERAL: alert, NAD HEENT: Normocephalic. No gross abnormalities. Pupils equal. CV: RRR, 2/6 systolic murmur noted. NO edema. Left thigh loop graft with aneurysmal dilatation, positive bruit and thrill RESP: Clear bilaterally with good efforts GI: Abdomen soft/nt/nd, BS normal. SKIN: no suspicious lesions or rashes, dry to touch NEURO: Grossly nonfocal PSYCH: affect appropriate Data BMP Recent Labs Lab 02/24/24 0958 NA 130* POTASSIUM 4.2 CHLORIDE 88* JON 8.3* CO2 24 BUN 76.2* CR 8.60* GLC 147* Phos@[email or web address](phos:4) CBC) Recent Labs Lab 02/24/24 0958 WBC 6.4 HGB 6.2* HCT 20.0* MCV 96 PLT 133* Recent Labs Lab 02/24/24 1006 02/24/24 0958 AST -- 21 ALT -- 21 ALKPHOS -- 72 BILITOTAL -- 0.5 DARLINE 26 -- Recent Labs Lab 02/24/24 0958 INR 2.46* No results found for: D2VIT, D3VIT, DTOT Recent Labs Lab 02/24/24 0958 HGB 6.2* HCT 20.0* MCV 96 No results for input(s): PTHI in the last 168 hours. documented in this encounter Nursing Notes * Jesika Draper RN - 02/25/2024 3:53 PM CDT Pt completed EGD, see provider not for details. No active bleeding seen, small esophageal varices noted, Dr. Hercules will order a CT scan. Pt awake and alert prior to transfer back to patient care unit.Report called to LINDA Mcgrath. documented in this encounter ED Notes * Lilliana Hernandez RN - 02/24/2024 11:51 AM CDT [facility] ED Nurse Handoff Report ED Chief complaint: Altered Mental Status . ED Diagnosis: Final diagnoses: Anemia, unspecified type ESRD on dialysis (H) Altered mental status, unspecified altered mental status type Allergies: Allergies Allergen Reactions Dihydroxyaluminum Aminoacetate Nausea GI bleeding Code Status: MD to talk to pt. Activity level - Baseline/Home: assist of 2. Activity Level - Current: in bed and assist of 2. Lift room needed: Yes. Bariatric: No Healthcare Manager Needed: No Isolation: No. Infection: Not Applicable. Respiratory status: Room air Vital Signs (within 30 minutes): Vitals: 02/24/24 1015 02/24/24 1030 02/24/24 1100 02/24/24 1115 BP: 105/48 105/49 Pulse: 76 76 74 75 Resp: 11 16 12 Temp: TempSrc: SpO2: 100% 100% Cardiac Rhythm: , Pain level: Patient confused: At baseline mentation. . Patient Falls Risk: bed/chair alarm on, nonskid shoes/slippers when out of bed, arm band in place, and toileting schedule implemented. Elimination Status: Has voided Patient Report - Initial Complaint: Altered Mental Status. Focused Assessment: HPI Herminio Victor is a 58 year old male with past history of diabetes, DVT, anemia, HTN, and hyperlipidemia who presenst with altered mental status. Per EMS the patient was coming from dialysis because he was altered where he was responding but more slowly than normal and was more aggressive. He did not get any dialysis done and was sent here. He was seen at [facility] yesterday but nothing was found to be wrong. He denies any pain or headache. Mom informed me later in the visit that the patient had some dark stools and possibly bleeding in his stool. She was worried about the patients hemoglobin levels due to this. She states that the patient was a little off balance this morning but otherwise at baseline. Abnormal Results: Labs Ordered and Resulted from Time of ED Arrival to Time of ED Departure COMPREHENSIVE METABOLIC PANEL - Abnormal Result Value Sodium 130 (*) Potassium 4.2 Carbon Dioxide (CO2) 24 Anion Gap 18 (*) Urea Nitrogen 76.2 (*) Creatinine 8.60 (*) GFR Estimate 7 (*) Calcium 8.3 (*) Chloride 88 (*) Glucose 147 (*) Alkaline Phosphatase 72 AST 21 ALT 21 Protein Total 6.3 (*) Albumin 3.6 Bilirubin Total 0.5 INR - Abnormal INR 2.46 (*) OCCULT BLOOD STOOL - Abnormal Occult Blood Positive (*) CBC WITH PLATELETS AND DIFFERENTIAL - Abnormal WBC Count 6.4 RBC Count 2.09 (*) Hemoglobin 6.2 (*) Hematocrit 20.0 (*) MCV 96 MCH 29.7 MCHC 31.0 (*) RDW 17.4 (*) Platelet Count 133 (*) % Neutrophils 70 % Lymphocytes 13 % Monocytes 10 % Eosinophils 7 % Basophils 0 % Immature Granulocytes 0 NRBCs per 100 WBC 0 Absolute Neutrophils 4.4 Absolute Lymphocytes 0.9 Absolute Monocytes 0.6 Absolute Eosinophils 0.4 Absolute Basophils 0.0 Absolute Immature Granulocytes 0.0 Absolute NRBCs 0.0 ISTAT GASES LACTATE VENOUS POCT - Abnormal Lactic Acid POCT 0.7 Bicarbonate Venous POCT 27 O2 Sat, Venous POCT 37 (*) pCO2 Venous POCT 46 pH Venous POCT 7.37 pO2 Venous POCT 23 (*) AMMONIA - Normal Ammonia 26 ISTAT GASES LACTATE VENOUS POCT TYPE AND SCREEN, ADULT ABO/RH(D) O POS Antibody Screen Negative SPECIMEN EXPIRATION DATE PREPARE RED BLOOD CELLS (UNIT) Blood Component Type Red Blood Cells Product Code M0599K82 Unit Status Not used Unit Number [id number] CROSSMATCH Compatible CODING SYSTEM [id number] UNIT ABO/RH O+ UNIT TYPE ISBT 5100 PREPARE RED BLOOD CELLS (UNIT) Blood Component Type Red Blood Cells Product Code Q1129Y29 Unit Status Ready for issue Unit Number [id number] CROSSMATCH Compatible CODING SYSTEM [id number] PREPARE RED BLOOD CELLS (UNIT) TRANSFUSE RED BLOOD CELLS (UNIT) ABO/RH TYPE AND SCREEN CT Head w/o Contrast Final Result IMPRESSION: 1. No acute intracranial pathology. 2. Chronic small vessel ischemic disease and generalized cerebral volume loss. FLAKO ZUNIGA MD SYSTEM ID: [id number] Treatments provided: See MAR Family Comments: NA OBS brochure/video discussed/provided to patient: Yes ED Medications: Medications sodium chloride 0.9% BOLUS 1-250 mL (has no administration in time range) sodium chloride 0.9% BOLUS 250 mL (0 mLs Intravenous Stopped 02/24/24 1131) Drips infusing: Yes For the majority of the shift this patient was Green. Interventions performed were NA. Sepsis treatment initiated: No Cares/treatment/interventions/medications to be completed following ED care: See Orders. ED Nurse Name: Yasemin Colunga RN 11:52 AM RECEIVING UNIT ED HANDOFF REVIEW Above ED Nurse Handoff Report was reviewed: Yes Reviewed by: Lilliana Hernandez RN on February 24, 2024 at 1:52 PM I Jakob called the ED to inform them the note was read: Yes * Yasemin Colunga RN - 02/24/2024 9:38 AM CDT Pt arrives via EMS w/ complaints of altered mental status, slower to respond but still responding at baseline & increase agitation. Per EMS pt is able to answer questions appropriately. Pt was atdialysis appointment. Pt not normally on O2, w/ EMS pt is on 4L. On RA pt was in 70s O2 per EMS. Pthad low hemoglobin of 7.8 taken last night. Baseline mentation is one word responses. * Tena Foster RN - 02/24/2024 9:38 AM CDT Bed: ED16 Expected date: Expected time: Means of arrival: Comments: [id number] * Jae Noel MD - 02/24/2024 9:38 AM CDT Emergency Department Note History of Present Illness Chief Complaint Altered Mental Status HPI Herminio Victor is a 58 year old male with past history of diabetes, DVT, anemia, HTN, and hyperlipidemia who presenst with altered mental status. Per EMS the patient was coming from dialysis because he was altered where he was responding but more slowly than normal and was more aggressive. He did not get any dialysis done and was sent here. He was seen at [facility] yesterday but nothing was found to be wrong. He denies any pain or headache. Mom informed me later in the visit that the patient had some dark stools and possibly bleeding in his stool. She was worried about the patients hemoglobin levels due to this. She states that the patient was a little off balance this morning but otherwise at baseline. Independent Historian EMS as detailed above. Review of External Notes Reviewed family medicine note from Nov 08, patient has diabetes, cognitive impairment, and is on dialysis. Patient lives with mom and his aunt is his [employer]. Past Medical History Medical History and Problem List Anemia Diabetes DVT ESRD Hyperkalemia Hyperlipidemia HTN Ortho stasis Retinopathy Sleep apnea Staph septicemia Steal syndrome Foot ulcer Anemia Hyperparathyroidism hyperthyroidism Medications Amlodipine atorvastatin lactulose Lisinopril Metoprolol omeprazole warfarin Surgical History Av fistula Femoropopliteal bypass graft Fistula creation Graft loop I and D Thrombectomy Physical Exam Patient Vitals for the past 24 hrs: BP Temp Temp src Pulse Resp SpO2 Height Weight 02/24/24 1526 -- -- -- -- 17 100 % -- -- 02/24/24 1432 131/56 98.6 ??F (37 ??C) Oral 87 14 100 % -- -- 02/24/24 1400 -- -- -- 86 14 98 % -- -- 02/24/24 1353 121/46 98.6 ??F (37 ??C) Oral 88 16 100 % 1.626 m (5' 4) 86.6 kg (190 lb 14.7 oz) 02/24/24 1330 -- -- -- 87 13 98 % -- -- 02/24/24 1325 -- -- -- 86 -- 100 % -- -- 02/24/24 1320 -- -- -- 85 13 100 % -- -- 02/24/24 1315 -- -- -- 85 13 100 % -- -- 02/24/24 1310 -- -- -- 80 12 100 % -- -- 02/24/24 1305 -- -- -- 82 -- 100 % -- -- 02/24/24 1300 107/44 -- -- 81 -- 100 % -- -- 02/24/24 1245 -- -- -- 79 20 100 % -- -- 02/24/24 1230 109/69 -- -- 73 -- 100 % -- -- 02/24/24 1219 136/61 97.4 ??F (36.3 ??C) -- 75 13 100 % -- -- 02/24/24 1204 128/50 97.4 ??F (36.3 ??C) -- 75 17 100 % -- -- 02/24/24 1200 128/50 -- -- 77 15 100 % -- -- 02/24/24 1115 -- -- -- 75 12 100 % -- -- 02/24/24 1100 105/49 -- -- 74 16 100 % -- -- 02/24/24 1030 105/48 -- -- 76 11 -- -- -- 02/24/24 1015 -- -- -- 76 11 -- -- -- 02/24/24 1000 100/45 -- -- 77 12 100 % -- -- 02/24/24 0957 100/45 98 ??F (36.7 ??C) Oral 78 16 100 % -- -- 02/24/24 0949 -- -- -- -- -- 100 % -- -- 02/24/24 0947 98/48 -- -- 78 17 -- -- -- Physical Exam General: Alert, baseline intellectual disability/cognitive impairment. Appears chronically ill. HEENT: Head: Atraumatic Ears: External ears are normal Mouth/Throat: Oropharynx is without erythema or exudate and mucous membranes are moist. Eyes: Conjunctivae normal and EOM are normal. No scleral icterus. CV: Normal rate, regular rhythm, normal heart sounds and radial pulses are 2+ and symmetric. Systolic murmur. Resp: Breath sounds are clear bilaterally Non-labored, no retractions or accessory muscle use GI: Abdomen is soft, no distension, no tenderness. No rebound or guarding. No CVA tenderness bilaterally MS: Normal range of motion. Trace BLE edema. Back atraumatic. No midline cervical, thoracic, or lumbar tenderness Skin: Warm and dry. No rash or lesions noted. Neuro: Alert. Normal strength. GCS: 14 (challenging to tell if confused or just baseline intellectual disability). Uncooperative with neuro examination and Cranial nerve assessment. Psych: Normal mood and affect. Diagnostics Lab Results Labs Ordered and Resulted from Time of ED Arrival to Time of ED Departure COMPREHENSIVE METABOLIC PANEL - Abnormal Result Value Sodium 130 (*) Potassium 4.2 Carbon Dioxide (CO2) 24 Anion Gap 18 (*) Urea Nitrogen 76.2 (*) Creatinine 8.60 (*) GFR Estimate 7 (*) Calcium 8.3 (*) Chloride 88 (*) Glucose 147 (*) Alkaline Phosphatase 72 AST 21 ALT 21 Protein Total 6.3 (*) Albumin 3.6 Bilirubin Total 0.5 INR - Abnormal INR 2.46 (*) OCCULT BLOOD STOOL - Abnormal Occult Blood Positive (*) CBC WITH PLATELETS AND DIFFERENTIAL - Abnormal WBC Count 6.4 RBC Count 2.09 (*) Hemoglobin 6.2 (*) Hematocrit 20.0 (*) MCV 96 MCH 29.7 MCHC 31.0 (*) RDW 17.4 (*) Platelet Count 133 (*) % Neutrophils 70 % Lymphocytes 13 % Monocytes 10 % Eosinophils 7 % Basophils 0 % Immature Granulocytes 0 NRBCs per 100 WBC 0 Absolute Neutrophils 4.4 Absolute Lymphocytes 0.9 Absolute Monocytes 0.6 Absolute Eosinophils 0.4 Absolute Basophils 0.0 Absolute Immature Granulocytes 0.0 Absolute NRBCs 0.0 ISTAT GASES LACTATE VENOUS POCT - Abnormal Lactic Acid POCT 0.7 Bicarbonate Venous POCT 27 O2 Sat, Venous POCT 37 (*) pCO2 Venous POCT 46 pH Venous POCT 7.37 pO2 Venous POCT 23 (*) AMMONIA - Normal Ammonia 26 ISTAT GASES LACTATE VENOUS POCT TYPE AND SCREEN, ADULT ABO/RH(D) O POS Antibody Screen Negative SPECIMEN EXPIRATION DATE [id number] PREPARE RED BLOOD CELLS (UNIT) Blood Component Type Red Blood Cells Product Code B1678T08 Unit Status Not used Unit Number [id number] CROSSMATCH Compatible CODING SYSTEM [id number] UNIT ABO/RH O+ UNIT TYPE ISBT 5100 PREPARE RED BLOOD CELLS (UNIT) Blood Component Type Red Blood Cells Product Code U0238S67 Unit Status Transfused Unit Number [id number] CROSSMATCH Compatible CODING SYSTEM [id number] ISSUE DATE AND TIME [id number] UNIT ABO/RH O+ UNIT TYPE ISBT 5100 PREPARE RED BLOOD CELLS (UNIT) ABO/RH TYPE AND SCREEN Imaging CT Head w/o Contrast Final Result IMPRESSION: 1. No acute intracranial pathology. 2. Chronic small vessel ischemic disease and generalized cerebral volume loss. FLAKO ZUNIGA MD SYSTEM ID: [id number] EKG ECG taken at 1012, ECG read at 1020 Sinus rhythm with 1st degree AV block Otherwise normal ECG No change as compared to prior, dated 01/29/19. Rate 77 bpm. NY interval 210 ms. QRS duration 98 ms. QT/QTc 382/432 ms. P-R-T axes [address] head shows: No acute intracranial hemorrhage ED Course Medications Administered Medications sodium chloride 0.9% BOLUS 1-250 mL (has no administration in time range) sodium chloride 0.9% BOLUS 250 mL (has no administration in time range) sodium chloride 0.9% BOLUS 300 mL (has no administration in time range) sodium chloride 0.9% BOLUS 100-150 mL (has no administration in time range) No heparin via hemodialysis machine (has no administration in time range) lidocaine 1 % 0.1-1 mL (has no administration in time range) lidocaine (LMX4) cream (has no administration in time range) sodium chloride (PF) 0.9% PF flush 3 mL (has no administration in time range) sodium chloride (PF) 0.9% PF flush 3 mL (has no administration in time range) senna-docusate (SENOKOT-S/PERICOLACE) 8.6-50 MG per tablet 1 tablet (has no administration in time range) Or senna-docusate (SENOKOT-S/PERICOLACE) 8.6-50 MG per tablet 2 tablet (has no administration in time range) calcium carbonate (TUMS) chewable tablet 1,000 mg (has no administration in time range) acetaminophen (TYLENOL) tablet 650 mg (has no administration in time range) Or acetaminophen (TYLENOL) Suppository 650 mg (has no administration in time range) pantoprazole (PROTONIX) IV push injection 40 mg (has no administration in time range) sodium chloride 0.9% BOLUS 250 mL (0 mLs Intravenous Stopped 02/24/24 1131) pantoprazole (PROTONIX) IV push injection 80 mg (80 mg Intravenous $Given 02/24/24 1219) Procedures Procedures Discussion of Management Admitting Hospitalist, BESSIE Slater on behalf of Dr. Perez Social Determinants of Health adding to complexity of care Education/Literacy ED Course ED Course as of 02/24/24 0085 TueFebruary 24, 2024 0952 Obtained the patients history and performed initial exam 1004 Spoke to the patients mother about the patients baseline and medical history 1209 I spoke with MARY Slater with Dr. Perez regarding admission. Medical Decision Making / Diagnosis [facility] Diagnoses: None MIPS None MDM Herminio Victor is a 58 year old male with a complex past medical history pertinent for end-stage renal disease on dialysis, long-term anticoagulation use with Coumadin for prior history of DVT, intellectual disability, and long-term care needs assisted with his assistant manager/embalmer Aunt Thelma, who presents from dialysis due to concerns for altered mental status. After long discussion with the patient's family it appears that her understanding is that his hemoglobin was low at dialysis and so he was sent to the emergency department for further evaluation of potential need for transfusion. Thelma did note that the patient had a darker colored stool and she was concerned for whether that may have blood in the stool. There have been no prior reported history of GI bleeds and she doesnot believe she had colonoscopy in the past. The EMS report is that the patient is altered althoughI think a lot of this may be his neurologic baseline today. He does have a cognitive intellectual disability which certainly impairs a proper neurologic evaluation. Given his use of long- term blood thinner medications we did obtain a CT scan of the head which thankfully shows no acute intracranial hemorrhage. Patient did have laboratory work which confirms a significant anemia of 6.2 although challenging to interpret whether this anemia secondary to chronic disease versus related to a potentialGI bleed. Patient had darker brown stool on appearance and so a stool occult was sent off. Stool occult returned positive. Patient was given a dose of Protonix and will plan for admission and gastroenterology consultation out of concern whether his anemia may be secondary to a possible GI bleed versus anemia of chronic disease. Remainder of laboratory work appears to be baseline for the patient with significant end-stage renal dysfunction. Patient states he does not make urine. Given need for blood transfusion and further management and evaluation for GI bleed versus anemia of chronic disease, the patient will be admitted to the hospitalist service. Critical Care time was 30 minutes for this patient excluding procedures. Disposition The patient was admitted to the hospital. ICD-10 Codes: ICD-10-CM 1. Anemia, unspecified type D64.9 2. ESRD on dialysis (H) N18.6 Z99.2 3. Altered mental status, unspecified altered mental status type R41.82 4. Gastrointestinal hemorrhage, unspecified gastrointestinal hemorrhage type K92.2 Discharge Medications Current Discharge Medication List Scribe Disclosure: Quang Gentile, am serving as a scribe at 11:35 AM on 02/24/2024 to document services personally performed by Jae Noel MD based on my observations and the provider's statements to me. Jae Noel MD 02/24/24 1545 documented in this encounter Miscellaneous Notes * Pharmacy-Anticoagulation Service - John Rosado [facility] - 02/26/2024 3:30 PM CDT Images from the original note were not included. 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 INR Goal= 2-3 Warfarin [employer] Regimen: 5 mg M-F Anticoagulation Dose History More data exists Latest Ref Rng & Units 08/09/2018 01/25/2019 03/18/2020 02/11/2022 02/24/2024 02/25/2024 02/26/2024 Recent Dosing and Labs INR 0.85 - 1.15 2.81 2.82 2.97 2.50 2.46 3.00 1.27 Patient received vitamin K IV 2 mg x1 in the hospital. Patient to resume home warfarin regimen and will follow up with primary care provider within 7 days. Agree with discharge planning. * Plan of Care - Yasemin Vasquez PT - 02/26/2024 3:30 PM CDT Physical Therapy Discharge Summary Reason for therapy discharge: Discharged to home. Progress towards therapy goal(s). See goals on Care Plan in [facility] electronic health record for goal details. Goals met Therapy recommendation(s): Patient mobilizing with SBA-CGA, no assistive device. Patient lives with family, has 10 hours of [employer] assist per day. Anticipate discharge home with family assisting. * Plan of Care - Adalgisa Amaya RN - 02/26/2024 2:37 PM CDT Problem: Adult Inpatient Plan of Care Goal: Absence of Hospital-Acquired Illness or Injury Intervention: Identify and Manage Fall Risk Recent Flowsheet Documentation Taken 02/26/2024 0831 by Adalgisa Amaya, RN Safety Promotion/Fall Prevention: activity supervised clutter free environment maintained increase visualization of patient increased rounding and observation lighting adjusted mobility aid in reach nonskid shoes/slippers when out of bed patient and family education safety round/check completed supervised activity Intervention: Prevent and Manage VTE (Venous Thromboembolism) Risk Recent Flowsheet Documentation Taken 02/26/2024830 by Adalgisa Amaya RN VTE Prevention/Management: SCDs (sequential compression devices) off Intervention: Prevent Infection Recent Flowsheet Documentation Taken 02/26/2024830 by Adalgisa Amaya RN Infection Prevention: rest/sleep promoted Problem: Pain Acute Goal: Optimal Pain Control and Function Intervention: Prevent or Manage Pain Recent Flowsheet Documentation Taken 02/26/2024830 by Adalgisa Amaya RN Medication Review/Management: medications reviewed Intervention: Optimize Psychosocial Wellbeing Recent Flowsheet Documentation Taken 02/26/2024830 by Adalgisa Amaya RN Supportive Measures: active listening utilized self-care encouraged verbalization of feelings encouraged Problem: Fall Injury Risk Goal: Absence of Fall and Fall-Related Injury Intervention: Identify and Manage Contributors Recent Flowsheet Documentation Taken 02/26/2024830 by Adalgisa Amaya RN Medication Review/Management: medications reviewed Intervention: Promote Injury-Free Environment Recent Flowsheet Documentation Taken 02/26/2024830 by Adalgisa Amaya RN Safety Promotion/Fall Prevention: activity supervised clutter free environment maintained increase visualization of patient increased rounding and observation lighting adjusted mobility aid in reach nonskid shoes/slippers when out of bed patient and family education safety round/check completed supervised activity Problem: Comorbidity Management Goal: Blood Glucose Levels Within Targeted Range Intervention: Monitor and Manage Glycemia Recent Flowsheet Documentation Taken 02/26/2024830 by Adalgisa Amaya RN Medication Review/Management: medications reviewed Problem: Confusion Acute Goal: Optimal Cognitive Function Intervention: Minimize Contributing Factors Recent Flowsheet Documentation Taken 02/26/2024830 by Adalgisa Amaya RN Communication Support Strategies: active listening utilized Problem: Gastrointestinal Bleeding Goal: Optimal Coping with Acute Illness Intervention: Optimize Psychosocial Response Recent Flowsheet Documentation Taken 02/26/2024830 by Adalgisa Amaya RN Supportive Measures: active listening utilized self-care encouraged verbalization of feelings encouraged Goal: Hemostasis Intervention: Manage Gastrointestinal Bleeding Recent Flowsheet Documentation Taken 02/26/2024830 by Adalgisa Amaya RN Environmental Support: calm environment promoted Problem: Acute Kidney Injury/Impairment Goal: Effective Renal Function Intervention: Monitor and Support Renal Function Recent Flowsheet Documentation Taken 02/26/2024830 by Adalgisa Amaya RN Medication Review/Management: medications reviewed Goal Outcome Evaluation: Pt A&O to self, slow to respond. Temp: 97.6 ??F (36.4 ??C) Temp src: Oral BP: 129/53 Pulse: 92 Resp: 20 SpO2: 100 % O2 Device: None (Room air) Transfers with SBA. Tolerating diet, denies N/V. Fistula L thigh. Patient Cleared for discharge to home with family today per MD. Discharge instructions, medications, and follow-ups reviewed with patient in detail. Patient verbalized understanding of discharge instructions. Belongings were returned to patient at time of discharge. family providing transport home. * Plan of Care - Foreign Lozada RN - 02/26/2024 4:24 AM CDT Problem: Adult Inpatient Plan of Care Goal: Plan of Care Review Description: The Plan of Care Review/Shift note should be completed every shift. The Outcome Evaluation is a brief statement about your assessment that the patient is improving, declining, or no change. This information will be displayed automatically on your shift note. 02/26/2024423 by Foreign Lozada RN Outcome: Progressing 02/26/2024422 by Foreign Lozada RN Outcome: Not Progressing Goal: Patient-Specific Goal (Individualized) Description: You can add care plan individualizations to a care plan. Examples of Individualizationmight be: Parent requests to be called daily at 9am for status, I have a hard time hearing out of my right ear, or Do not touch me to wake me up as it startles me. 02/26/2024423 by Foreign Lozada RN Outcome: Progressing 02/26/2024422 by Foreign Lozada RN Outcome: Not Progressing Goal: Absence of Hospital-Acquired Illness or Injury 02/26/2024423 by Foreign Lozada RN Outcome: Progressing 02/26/2024422 by Foreign Lozada RN Outcome: Not Progressing Intervention: Identify and Manage Fall Risk Recent Flowsheet Documentation Taken 02/26/2024 0000 by Foreign Lozada RN Safety Promotion/Fall Prevention: activity supervised Taken 02/25/2024 2100 by Foreign Lozada RN Safety Promotion/Fall Prevention: activity supervised Intervention: Prevent Skin Injury Recent Flowsheet Documentation Taken 02/26/2024 0000 by Foreign Lozada RN Body Position: position changed independently Taken 02/25/2024 2100 by Foreign Lozada RN Body Position: position changed independently Intervention: Prevent and Manage VTE (Venous Thromboembolism) Risk Recent Flowsheet Documentation Taken 02/26/2024 0000 by Foreign Lozada RN VTE Prevention/Management: SCDs (sequential compression devices) off Taken 02/25/2024 2100 by Foreign Lozada RN VTE Prevention/Management: SCDs (sequential compression devices) off Intervention: Prevent Infection Recent Flowsheet Documentation Taken 02/26/2024 0000 by Foreign Lozada RN Infection Prevention: single patient room provided rest/sleep promoted Taken 02/25/2024 2100 by Foreign Lozada RN Infection Prevention: single patient room provided rest/sleep promoted Goal: Optimal Comfort and Wellbeing 02/26/2024 042 by Foreign Lozada RN Outcome: Progressing 02/26/2024 042 by Foreign Lozada RN Outcome: Not Progressing Goal: Readiness for Transition of Care 02/26/2024 042 by Foreign Lozada RN Outcome: Progressing 02/26/2024 0423 by Foreign Lozada RN Outcome: Not Progressing Problem: Pain Acute Goal: Optimal Pain Control and Function 02/26/2024 042 by Foreign Lozada RN Outcome: Progressing 02/26/2024 0423 by Foreign Lozada RN Outcome: Not Progressing Intervention: Prevent or Manage Pain Recent Flowsheet Documentation Taken 02/26/2024 0000 by Foreign Lozada RN Sensory Stimulation Regulation: quiet environment promoted Medication Review/Management: medications reviewed Taken 02/25/2024 2100 by Foreign Lozada RN Sensory Stimulation Regulation: quiet environment promoted Medication Review/Management: medications reviewed Intervention: Optimize Psychosocial Wellbeing Recent Flowsheet Documentation Taken 02/26/2024 0000 by Foreign Lozada RN Supportive Measures: self-care encouraged Taken 02/25/2024 2100 by Foreign Lozada RN Supportive Measures: self-care encouraged Problem: Fall Injury Risk Goal: Absence of Fall and Fall-Related Injury 02/26/2024 042 by Foreign Lozada RN Outcome: Progressing 02/26/2024 042 by Foreign Lozada RN Outcome: Not Progressing Intervention: Identify and Manage Contributors Recent Flowsheet Documentation Taken 02/26/2024 0000 by Foreign Lozada RN Medication Review/Management: medications reviewed Taken 02/25/2024 2100 by Foreign Lozada RN Medication Review/Management: medications reviewed Intervention: Promote Injury-Free Environment Recent Flowsheet Documentation Taken 02/26/2024 0000 by Foreign Lozada RN Safety Promotion/Fall Prevention: activity supervised Taken 02/25/20242099 by Foreign Lozada RN Safety Promotion/Fall Prevention: activity supervised Problem: Comorbidity Management Goal: Blood Glucose Levels Within Targeted Range 02/26/2024423 by Foreign Lozada RN Outcome: Progressing 02/26/2024422 by Foreign Lozada RN Outcome: Not Progressing Intervention: Monitor and Manage Glycemia Recent Flowsheet Documentation Taken 02/26/2024 0000 by Foreign Lozada RN Medication Review/Management: medications reviewed Taken 02/25/20242099 by Foreign Lozada RN Medication Review/Management: medications reviewed Problem: Confusion Acute Goal: Optimal Cognitive Function 02/26/2024423 by Foreign Lozada RN Outcome: Progressing 02/26/2024 042 by Foreign Lozada RN Outcome: Not Progressing Intervention: Minimize Contributing Factors Recent Flowsheet Documentation Taken 02/26/2024 0000 by Foreign Lozada RN Sensory Stimulation Regulation: quiet environment promoted Reorientation Measures: reorientation provided Communication Support Strategies: active listening utilized simple statements used Taken 02/25/2024 2100 by Foreign Lozada RN Sensory Stimulation Regulation: quiet environment promoted Reorientation Measures: reorientation provided Communication Support Strategies: active listening utilized simple statements used Problem: Gastrointestinal Bleeding Goal: Optimal Coping with Acute Illness 02/26/2024 042 by Foreign Lozada RN Outcome: Progressing 02/26/2024 042 by Foreign Lozada RN Outcome: Not Progressing Intervention: Optimize Psychosocial Response Recent Flowsheet Documentation Taken 02/26/2024 0000 by Foreign Lozada RN Supportive Measures: self-care encouraged Taken 02/25/2024 2100 by Foreign Lozada RN Supportive Measures: self-care encouraged Goal: Hemostasis 02/26/2024423 by Foreign Lozada RN Outcome: Progressing 02/26/2024 042 by Foreign Lozada RN Outcome: Not Progressing Intervention: Manage Gastrointestinal Bleeding Recent Flowsheet Documentation Taken 02/26/2024 0000 by Foreign Lozada RN Environmental Support: calm environment promoted Taken 02/25/2024 2100 by Foreign Lozada RN Environmental Support: calm environment promoted Problem: Acute Kidney Injury/Impairment Goal: Fluid and Electrolyte Balance 02/26/2024 042 by Foreign Lozada RN Outcome: Progressing 02/26/2024422 by Foreign Lozada RN Outcome: Not Progressing Goal: Improved Oral Intake 02/26/2024 042 by Foreign Lozada RN Outcome: Progressing 02/26/2024 042 by Foreign Lozada RN Outcome: Not Progressing Goal: Effective Renal Function 02/26/2024423 by Foreign Lozada RN Outcome: Progressing 02/26/2024422 by Foreign Lozada RN Outcome: Not Progressing Intervention: Monitor and Support Renal Function Recent Flowsheet Documentation Taken 02/26/2024 0000 by Foreign Lozada RN Medication Review/Management: medications reviewed Taken 02/25/20242099 by Foreign Lozdaa RN Medication Review/Management: medications reviewed Goal Outcome Evaluation: Pt oriented to self only, VSS, on RA. PIV SL. Denies pain. Pt rested between cares. Good appetite. Will continue current POC. * Plan of Care - Ramila Singh RN - 02/25/2024 7:53 PM CDT BP 92/49 Pulse 77 Temp 98.3 ??F (36.8 ??C) (Oral) Resp 19 Ht 1.626 m (5' 4) Wt 86.6 kg (190 lb 14.7 oz) SpO2 98% BMI 32.77 kg/m?? General: pt alert, decision making, can give consent. Denies pain. Neuro - Alert to self Cardiac - WDL. Resp - Lungs clear on RA GI - x. Black tarry stool. Good appetite. 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 HemoDialysis. SL IV - WDL. Goal Outcome Evaluation: Plan of Care Reviewed With: patient Overall Patient Progress: improvingOverall Patient Progress: improving Outcome Evaluation: Hgb in range. alert. VSS on RA. Ambulating SBA. Recovering well from EGD Problem: Adult Inpatient Plan of Care Goal: Plan of Care Review Description: The Plan of Care Review/Shift note should be completed every shift. The Outcome Evaluation is a brief statement about your assessment that the patient is improving, declining, or no change. This information will be displayed automatically on your shift note. Outcome: Progressing Flowsheets (Taken 02/25/20241951) Outcome Evaluation: Hgb in range. alert. VSS on RA. Ambulating SBA. Recovering well from EGD Plan of Care Reviewed With: patient Overall Patient Progress: improving Goal: Patient-Specific Goal (Individualized) Description: You can add care plan individualizations to a care plan. Examples of Individualizationmight be: Parent requests to be called daily at 9am for status, I have a hard time hearing out of my right ear, or Do not touch me to wake me up as it startles me. Outcome: Progressing Goal: Absence of Hospital-Acquired Illness or Injury Outcome: Progressing Intervention: Identify and Manage Fall Risk Recent Flowsheet Documentation Taken 02/25/2024 1523 by Ramila Singh, RN Safety Promotion/Fall Prevention: activity supervised Intervention: Prevent and Manage VTE (Venous Thromboembolism) Risk Recent Flowsheet Documentation Taken 02/25/2024 1700 by Ramila Singh, RN VTE Prevention/Management: SCDs (sequential compression devices) off Taken 02/25/2024 1523 by Ramila Singh, RN VTE Prevention/Management: SCDs (sequential compression devices) off Intervention: Prevent Infection Recent Flowsheet Documentation Taken 02/25/2024 1523 by Ramila Singh, RN Infection Prevention: single patient room provided rest/sleep promoted Goal: Optimal Comfort and Wellbeing Outcome: Progressing Intervention: Monitor Pain and Promote Comfort Recent Flowsheet Documentation Taken 02/25/2024 1609 by Ramila Singh, last putter away Interventions: care clustered essential oils Goal: Readiness for Transition of Care Outcome: Progressing Problem: Pain Acute Goal: Optimal Pain Control and Function Outcome: Progressing Intervention: Develop Pain Management Plan Recent Flowsheet Documentation Taken 02/25/2024 1609 by Ramila Singh RN Pain Management Interventions: care clustered essential oils Intervention: Prevent or Manage Pain Recent Flowsheet Documentation Taken 02/25/2024 1700 by Ramila Singh RN Sensory Stimulation Regulation: quiet environment promoted Taken 02/25/2024 1523 by Ramila Singh RN Medication Review/Management: medications reviewed Intervention: Optimize Psychosocial Wellbeing Recent Flowsheet Documentation Taken 02/25/2024 1700 by Ramila Singh RN Supportive Measures: self-care encouraged Problem: Fall Injury Risk Goal: Absence of Fall and Fall-Related Injury Outcome: Progressing Intervention: Identify and Manage Contributors Recent Flowsheet Documentation Taken 02/25/2024 1523 by Ramila Singh RN Medication Review/Management: medications reviewed Intervention: Promote Injury-Free Environment Recent Flowsheet Documentation Taken 02/25/2024 1523 by Ramila Singh RN Safety Promotion/Fall Prevention: activity supervised Problem: Comorbidity Management Goal: Blood Glucose Levels Within Targeted Range Outcome: Progressing Intervention: Monitor and Manage Glycemia Recent Flowsheet Documentation Taken 02/25/2024 1523 by Ramila Singh RN Medication Review/Management: medications reviewed Problem: Confusion Acute Goal: Optimal Cognitive Function Outcome: Progressing Intervention: Minimize Contributing Factors Recent Flowsheet Documentation Taken 02/25/2024 1700 by Ramila Singh RN Sensory Stimulation Regulation: quiet environment promoted Reorientation Measures: reorientation provided Communication Support Strategies: active listening utilized simple statements used Problem: Gastrointestinal Bleeding Goal: Optimal Coping with Acute Illness Outcome: Progressing Intervention: Optimize Psychosocial Response Recent Flowsheet Documentation Taken 02/25/2024 1700 by Ramila Singh RN Supportive Measures: self-care encouraged Goal: Hemostasis Outcome: Progressing Intervention: Manage Gastrointestinal Bleeding Recent Flowsheet Documentation Taken 02/25/2024 1700 by Ramila Singh RN Environmental Support: calm environment promoted Problem: Acute Kidney Injury/Impairment Goal: Fluid and Electrolyte Balance Outcome: Progressing Goal: Improved Oral Intake Outcome: Progressing Goal: Effective Renal Function Outcome: Progressing Intervention: Monitor and Support Renal Function Recent Flowsheet Documentation Taken 02/25/2024 1523 by Ramila Singh RN Medication Review/Management: medications reviewed * Pre-Procedure - Momo Hercules MD - 02/25/2024 3:16 PM CDT INPATIENT PRE-PROCEDURE NOTE CHIEF COMPLAINT / REASON FOR PROCEDURE: anemia Admission History and Physical Reviewed, including past medical history, social history family history, ROS, and interval progress notes: on chart-<30 days old; updated within 7 days. PRE-SEDATION ASSESSMENT: Lung Exam: normal Heart Exam: normal Airway Exam: Normal Previous reaction to anesthesia/sedation: NO Sedation plan based on assessment:Moderate (conscious) sedation ASA Classification: 2 - Mild systemic disease IMPRESSION: anemia PLAN: EGD Momo Hercules MD * Plan of Care - Pal Franklin RN - 02/25/2024 12:37 PM CDT Goal Outcome Evaluation: Plan of Care Reviewed With: patient Pt is alert and oriented X2. Had dialysis this morning 2.5 liters was extracted as per dialysis nurse report. Pt is NPO waiting for GI consult for a possible EGD. Current hemoglobin is 8.5 an increase from previous draw.Denied any pain. Assisted by one to transfer, ambulated one hallway with therapy. * Plan of Care - Norma Mcmahon RN - 02/25/2024 6:03 AM CDT Pt is alert and oriented to self. Pt denies any pain or shortness of breath and on room air. 2nd PRBC infusion completed and Hgb recheck in the AM. No BM yet on this shift and no S&S of bleeding. NPO maintained. Ongoing monitoring. Plan: GI and Nephro following. EGD and dialysis planned for today. BP 114/51 (BP Location: Left arm) Pulse 84 Temp 98.6 ??F (37 ??C) (Oral) Resp 18 Ht 1.626 m(5' 4) Wt 86.6 kg (190 lb 14.7 oz) SpO2 100% BMI 32.77 kg/m?? Problem: Adult Inpatient Plan of Care Goal: Plan of Care Review Description: The Plan of Care Review/Shift note should be completed every shift. The Outcome Evaluation is a brief statement about your assessment that the patient is improving, declining, or no change. This information will be displayed automatically on your shift note. Outcome: Progressing Flowsheets (Taken 02/25/2024 0224) Outcome Evaluation: Hgb recheck in the AM. Pt denies any pain. Plan of Care Reviewed With: patient Overall Patient Progress: no change Goal: Patient-Specific Goal (Individualized) Description: You can add care plan individualizations to a care plan. Examples of Individualizationmight be: Parent requests to be called daily at 9am for status, I have a hard time hearing out of my right ear, or Do not touch me to wake me up as it startles me. Outcome: Progressing Goal: Absence of Hospital-Acquired Illness or Injury Outcome: Progressing Intervention: Identify and Manage Fall Risk Recent Flowsheet Documentation Taken 02/25/2024 0200 by Norma Mcmahon RN Safety Promotion/Fall Prevention: safety round/check completed Taken 02/25/2024 0100 by Norma Mcmahon RN Safety Promotion/Fall Prevention: safety round/check completed Taken 02/25/2024 0000 by Norma Mcmahon RN Safety Promotion/Fall Prevention: safety round/check completed Taken 02/24/2024 231 by Norma Mcmahon RN Safety Promotion/Fall Prevention: safety round/check completed patient and family education lighting adjusted assistive device/personal items within reach activity supervised Intervention: Prevent Skin Injury Recent Flowsheet Documentation Taken 02/24/20242314 by Norma Mcmahon RN Body Position: position changed independently heels elevated Intervention: Prevent and Manage VTE (Venous Thromboembolism) Risk Recent Flowsheet Documentation Taken 02/24/20242314 by Norma Mcmahon RN VTE Prevention/Management: SCDs (sequential compression devices) off Intervention: Prevent Infection Recent Flowsheet Documentation Taken 02/24/20242314 by Norma Mcmahon RN Infection Prevention: single patient room provided rest/sleep promoted hand hygiene promoted Goal: Optimal Comfort and Wellbeing Outcome: Progressing Goal: Readiness for Transition of Care Outcome: Progressing Problem: Pain Acute Goal: Optimal Pain Control and Function Outcome: Progressing Intervention: Prevent or Manage Pain Recent Flowsheet Documentation Taken 02/24/20242314 by Norma Mcmahon RN Medication Review/Management: medications reviewed Problem: Fall Injury Risk Goal: Absence of Fall and Fall-Related Injury Outcome: Progressing Intervention: Identify and Manage Contributors Recent Flowsheet Documentation Taken 02/24/20242314 by Norma Mcmahon RN Medication Review/Management: medications reviewed Intervention: Promote Injury-Free Environment Recent Flowsheet Documentation Taken 02/25/2024 0200 by Norma Mcmahon RN Safety Promotion/Fall Prevention: safety round/check completed Taken 02/25/2024 0100 by Norma Mcmahon RN Safety Promotion/Fall Prevention: safety round/check completed Taken 02/25/2024 0000 by Norma Mcmahon RN Safety Promotion/Fall Prevention: safety round/check completed Taken 02/24/20242314 by Norma Mcmahon RN Safety Promotion/Fall Prevention: safety round/check completed patient and family education lighting adjusted assistive device/personal items within reach activity supervised Problem: Comorbidity Management Goal: Blood Glucose Levels Within Targeted Range Outcome: Progressing Intervention: Monitor and Manage Glycemia Recent Flowsheet Documentation Taken 02/24/20242314 by Norma Mcmahon RN Medication Review/Management: medications reviewed Problem: Confusion Acute Goal: Optimal Cognitive Function Outcome: Progressing Problem: Gastrointestinal Bleeding Goal: Optimal Coping with Acute Illness Outcome: Progressing Goal: Hemostasis Outcome: Progressing Problem: Acute Kidney Injury/Impairment Goal: Fluid and Electrolyte Balance Outcome: Progressing Goal: Improved Oral Intake Outcome: Progressing Goal: Effective Renal Function Outcome: Progressing Intervention: Monitor and Support Renal Function Recent Flowsheet Documentation Taken 02/24/20242314 by Norma Mcmahon RN Medication Review/Management: medications reviewed Goal Outcome Evaluation: Plan of Care Reviewed With: patient Overall Patient Progress: no changeOverall Patient Progress: no change Outcome Evaluation: Hgb recheck in the AM. Pt denies any pain. * Plan of Care - Ramila Singh RN - 02/24/2024 10:59 PM CDT BP 115/50 Pulse 86 Temp 98.6 ??F (37 ??C) (Oral) Resp 17 Ht 1.626 m (5' 4) Wt 86.6 kg (190 lb 14.7 oz) SpO2 100% BMI 32.77 kg/m?? General: pt alert, decision making, can give consent. Drowsy, lethargic, wakes with light touch. Gave 2 units RBCs. Bps hypotensive in 80s/40s. Neuro - Alert to self Cardiac - WDL. X. Hypotension Resp - Lungs clear on RA GI - x. Black tarry stool. Good appetite - x. HemoDialysis. SL IV - 3 units RBC today. Hb 6.7, recheck at 0000. NPO 0000 for EGD. Goal Outcome Evaluation: Plan of Care Reviewed With: patient Overall Patient Progress: decliningOverall Patient Progress: declining Outcome Evaluation: Hgb 6.7 at 1800 recheck. Gave 2 units of RBCs. VSS on RA. MD Junaid pagedfor BP 87/33. Problem: Adult Inpatient Plan of Care Goal: Plan of Care Review Description: The Plan of Care Review/Shift note should be completed every shift. The Outcome Evaluation is a brief statement about your assessment that the patient is improving, declining, or no change. This information will be displayed automatically on your shift note. Outcome: Progressing Flowsheets (Taken 02/24/2024 9834) Outcome Evaluation: Hgb 6.7 at 1800 recheck. Gave 2 units of RBCs. VSS on RA. MD Junaid pagedfor BP 87/33. Plan of Care Reviewed With: patient Overall Patient Progress: declining Goal: Patient-Specific Goal (Individualized) Description: You can add care plan individualizations to a care plan. Examples of Individualizationmight be: Parent requests to be called daily at 9am for status, I have a hard time hearing out of my right ear, or Do not touch me to wake me up as it startles me. Outcome: Progressing Goal: Absence of Hospital-Acquired Illness or Injury Outcome: Progressing Intervention: Identify and Manage Fall Risk Recent Flowsheet Documentation Taken 02/24/2024 8806 by Ramila Singh RN Safety Promotion/Fall Prevention: safety round/check completed room organization consistent room near nurse's station room door open assistive device/personal items within reach Taken 02/24/2024 1526 by Ramila Singh RN Safety Promotion/Fall Prevention: supervised activity safety round/check completed Intervention: Prevent and Manage VTE (Venous Thromboembolism) Risk Recent Flowsheet Documentation Taken 02/24/2024 1526 by Ramila Singh RN VTE Prevention/Management: SCDs (sequential compression devices) off Intervention: Prevent Infection Recent Flowsheet Documentation Taken 02/24/2024 1526 by Ramila Singh RN Infection Prevention: single patient room provided rest/sleep promoted Goal: Optimal Comfort and Wellbeing Outcome: Progressing Goal: Readiness for Transition of Care Outcome: Progressing Problem: Pain Acute Goal: Optimal Pain Control and Function Outcome: Progressing Intervention: Prevent or Manage Pain Recent Flowsheet Documentation Taken 02/24/2024 1526 by Ramila Singh RN Medication Review/Management: medications reviewed Problem: Fall Injury Risk Goal: Absence of Fall and Fall-Related Injury Outcome: Progressing Intervention: Identify and Manage Contributors Recent Flowsheet Documentation Taken 02/24/2024 1526 by Ramila Singh RN Medication Review/Management: medications reviewed Intervention: Promote Injury-Free Environment Recent Flowsheet Documentation Taken 02/24/2024 1658 by Ramila Singh RN Safety Promotion/Fall Prevention: safety round/check completed room organization consistent room near nurse's station room door open assistive device/personal items within reach Taken 02/24/2024 1526 by Ramila Singh RN Safety Promotion/Fall Prevention: supervised activity safety round/check completed Problem: Comorbidity Management Goal: Blood Glucose Levels Within Targeted Range Outcome: Progressing Intervention: Monitor and Manage Glycemia Recent Flowsheet Documentation Taken 02/24/2024 1526 by Ramila Singh RN Medication Review/Management: medications reviewed Problem: Confusion Acute Goal: Optimal Cognitive Function Outcome: Progressing Problem: Gastrointestinal Bleeding Goal: Optimal Coping with Acute Illness Outcome: Progressing Goal: Hemostasis Outcome: Progressing Problem: Acute Kidney Injury/Impairment Goal: Fluid and Electrolyte Balance Outcome: Progressing Goal: Improved Oral Intake Outcome: Progressing Goal: Effective Renal Function Outcome: Progressing Intervention: Monitor and Support Renal Function Recent Flowsheet Documentation Taken 02/24/2024 1526 by Ramila Singh RN Medication Review/Management: medications reviewed * Provider Notification - Ramila Singh RN - 02/24/2024 9:13 PM CDT Shailesh HARPER for BP 87/33. Received Orders to transfuse 1 unit RBC. * Pharmacy-Admission Medication History - Axel Wiley - 02/24/2024 3:11 PM CDT Chemical Manager Admission Medication History Admission medication history is complete. The information provided in this note is only as accurateas the sources available at the time of the update. Information Source(s): Family member and CareEverywhere/SureScripts via phone Pertinent Information: Medication list obtained from sister (Thelma) who handles his medications. Changes made to [employer] medication list: Added: Calcium Acetate (snack) Deleted: Cholecalciferol, Lactulose, Multivitamin RENAL, Omeprazole, Oxycodone IR (Twice) Changed: Amlodipine 10 mg four times weekly -> Amlodipine 5 mg every day; Calcium Acetate 1334 mg TID with meals -> Calcium Acetate 667 mg TID with meals; Lisinopril 40 mg daily -> Lisinopril 20 mg daily; Metoprolol 100 mg BID MWFSun - > Metoprolol 100 mg every day; Warfarin 4 mg daily -> Warfarin 5 mg daily M-F Allergies reviewed with patient and updates made in EHR: unable to assess Medication History Completed By: Axel Wiley 02/24/2024 3:11 PM [employer] Med List Medication Sig Last Dose amLODIPine (NORVASC) 5 MG tablet Take 5 mg by mouth daily 02/22/2024 atorvastatin (LIPITOR) 20 MG tablet Take 1 tablet (20 mg) by mouth every evening 02/23/2024 at PM BISACODYL PO Take 10 mg by mouth four times a week (Takes 2 x 5mg tablet = 10mg dose) Tuesday, Tuesday, Tuesday, and Tuesday Unknown calcium acetate (PHOSLO) 667 MG CAPS capsule Take 1 capsule (667 mg)by mouth 3 times daily with meals 02/23/2024 calcium acetate (PHOSLO) 667 MG CAPS capsule Take 1 capsule (667 mg) once daily with a snack 02/23/2024 lisinopril (ZESTRIL) 40 MG tablet Take 20 mg by mouth every evening 02/23/2024 at PM metoprolol tartrate (LOPRESSOR) 100 MG tablet Take 100 mg by mouth every morning 02/23/2024 at AM warfarin ANTICOAGULANT (COUMADIN) 5 MG tablet Take 1 tablet (5 mg) by mouth Tuesday through Tuesday02/23/2024 at PM Associated attestation - Zuleyka Hopkins [facility] - 02/24/2024 7:30 PM CDT Medication history completed by pharmacy technician infusion, reviewed by Zuleyka Hopkins, PharmD * Plan of Care - Lilliana Hernandez RN - 02/24/2024 2:50 PM CDT Goal Outcome Evaluation: Plan of Care Reviewed With: patient Overall Patient Progress: improvingOverall Patient Progress: improving Outcome Evaluation: Alert and oriented to self only. calm and cooperative. Assist x 2 with lift device. Hemoglobin 6.2. Had one Unit of blood. Dialysis shunt on L leg WNL. PIV SL Problem: Adult Inpatient Plan of Care Goal: Plan of Care Review Description: The Plan of Care Review/Shift note should be completed every shift. The Outcome Evaluation is a brief statement about your assessment that the patient is improving, declining, or no change. This information will be displayed automatically on your shift note. Outcome: Progressing Flowsheets (Taken 02/24/2024 1617) Outcome Evaluation: Alert and oriented to self only. calm and cooperative. Assist x 2 with lift device. Hemoglobin 6.2. Had one Unit of blood. Dialysis shunt on L leg WNL. PIV SL Plan of Care Reviewed With: patient Overall Patient Progress: improving Goal: Patient-Specific Goal (Individualized) Description: You can add care plan individualizations to a care plan. Examples of Individualizationmight be: Parent requests to be called daily at 9am for status, I have a hard time hearing out of my right ear, or Do not touch me to wake me up as it startles me. Outcome: Progressing Goal: Absence of Hospital-Acquired Illness or Injury Outcome: Progressing Intervention: Identify and Manage Fall Risk Recent Flowsheet Documentation Taken 02/24/2024 1400 by Lilliana Hernandez RN Safety Promotion/Fall Prevention: activity supervised nonskid shoes/slippers when out of bed safety round/check completed Intervention: Prevent Skin Injury Recent Flowsheet Documentation Taken 02/24/2024 1400 by Lilliana Hernandez RN Body Position: position changed independently Intervention: Prevent Infection Recent Flowsheet Documentation Taken 02/24/2024 1400 by Lilliana Hernandez RN Infection Prevention: hand hygiene promoted single patient room provided Goal: Optimal Comfort and Wellbeing Outcome: Progressing Goal: Readiness for Transition of Care Outcome: Progressing Intervention: Mutually Develop Transition Plan Recent Flowsheet Documentation Taken 02/24/2024 1500 by Lilliana Hernandez RN Equipment Currently Used at Home: (Not sure- pt not answering) other (see comments) documented in this encounter Plan of Treatment Pending Results Name Type Priority Associated Diagnoses Date /Time Prepare red blood cells (unit) Blood Bank STAT 02/24/2024 11:35 AM CDT documented as of this encounter Procedures Procedure Name Priority Date/Time Associated Diagnosis Comments HEPATITIS B SURFACE ANTIBODY Routine 02/26/2024 11:13 AM CDT INR STAT 02/26/2024 9:49 AM CDT RENAL PANEL Routine 02/26/2024 6:10 AM CDT IRON AND IRON BINDING CAPACITY Add-On 02/26/2024 6:10 AM CDT FERRITIN Add-On 02/26/2024 6:10 AM CDT CBC WITH PLATELETS Routine 02/26/2024 6: [address] ABDOMEN PELVIS W CONTRAST Routine 02/25/2024 5:03 PM CDT UGI ENDOSCOPY DIAG W OR W/O BRUSH/WASH 02/25/2024 3:04 PM CDT Anemia UPPER GI ENDOSCOPY Routine 02/25/2024 3: 01 PM CDT HEMOGLOBIN Timed 02/25/2024 11:58 AM CDT INR Routine 02/25/2024 9:28 AM CDT HEPATITIS B SURFACE ANTIGEN Add-On 02/25/2024 6:45 AM CDT HEMOGLOBIN Timed 02/25/2024 6:45 AM CDT BASIC METABOLIC PANEL Routine 02/25/2024 6:45 AM CDT CBC WITH PLATELETS Routine 02/25/2024 6: 45 AM CDT TRANSFUSE RED BLOOD CELLS (UNIT) [...] TRACING ONLY STAT 02/24/2024 10:12 AM CDT TYPE AND SCREEN, ADULT STAT 10:07 AM CDT ABO/RH TYPE AND SCREEN STAT 10:07 AM CDT AMMONIA STAT 02/24/2024 10:06 AM CDT EXTRA TUBE STAT 02/24/2024 9:58 AM CDT EXTRA PURPLE TOP TUBE STAT 02/24/2024 9:58 AM CDT EXTRA GREEN TOP (LITHIUM HEPARIN) TUBE STAT 02/24/2024 9:58 AM CDT EXTRA BLUE TOP TUBE STAT 02/24/2024 9 :58 AM CDT CBC WITH PLATELETS AND DIFFERENTIAL STAT 02/24/2024 9:58 AM CDT CBC WITH PLATELETS & DIFFERENTIAL STAT 02/24/2024 9:58 AM CDT INR STAT 02/24/2024 9:58 AM CDT COMPREHENSIVE METABOLIC PANEL STAT 02/24/2024 9:58 AM CDT documented in this encounter Results * Hepatitis B Surface Antibody (02/26/2024 11:13 AM CDT) [facility] Hepatitis B Surface Antibody Reactive 02/26/2024 4:38 [...] CDT 02/26/2024 11:24 AM CDT Georgia Ana LAB - BLOOD ORDER NADIA [facility] [place] [facility] [address], [address] [place] [address], [facility] * (ABNORMAL) INR (02/26/2024 9:49 AM CDT) INR 1.27(H) 0.85 - 1.15 02/26/2024 10:13 AM CDT LABORATORY Blood STRUCTURE OF RIGHT HAND / Unknown Venipuncture / Unknown 02/26/2024 9:49 AM CDT 02/26/2024 9:58 AM CDT Georgia Ana DO LAB - BLOOD ORDER NADIA LABORATORY [facility] [address] Lab (1st floor, no room number) [place] [address] * (ABNORMAL) Renal panel (02/26/2024 6:10 [...] - 5.3 mmol/L 02/26/2024 6:49 AM CDT [facility] Chloride 89(L) 98 - 107 mmol/L 02/26/2024 6:49 AM CDT [facility] Carbon Dioxide (CO2) 26 22 - 29 mmol/L 02/26/2024 6:49 AM CDT [facility] Anion Gap 13 7 - 15 mmol/L 02/26/2024 6:49 AM CDT [facility] Glucose 103(H) 70 - 99 mg/dL [...] DO LAB - BLOOD ORDER NADIA LABORATORY [facility] [address] Lab (1st floor, no room number) [place] [address] * (ABNORMAL) CBC with platelets (02/26/2024 6:10 AM CDT) WBC Count 6.5 4.0 - 11.0 10e3/uL [...] DO LAB - BLOOD ORDER NADIA LABORATORY [facility] [address] Lab (1st floor, no room number) [place] [address], [facility] * (ABNORMAL) Ferritin (02/26/2024 6:10 AM CDT) Ferritin 1,463(H) 31 - 409 ng/mL 02/26/2024 12:37 PM CDT [facility] Blood STRUCTURE OF RIGHT HAND / Unknown Venipuncture / Unknown 02/26/2024 6:10 AM CDT 02/26/2024 6:20 AM CDT Momo Hercules MD LAB - BLOOD ORDERABL ES [facility] [place] [facility] [address], [address] [place] [address], [facility] * (ABNORMAL) Iron and iron binding [...] Hercules MD LAB - BLOOD ORDERABL ES LABORATORY [facility] [address] Lab (1st floor, no room number) [place] [address] * CT Abdomen Pelvis w Contrast [...] EXAM: CT ABDOMEN PELVIS W CONTRAST LOCATION: [facility] DATE: 02/25/2024 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 Evaluate [...] lytic changes involving the superior aspect of [id number] body (series 3, image 137) with some [...] UPPER GI ENDOSCOPY (02/25/2024 3:01 PM CDT) [facility] Upper GI Endoscopy [facility] Patient Name: Herminio Navarro Kayleigh ? Procedure Date: 02/25/2024 3:01 PM ? [...] ?Olympus Gastroscope, Model # GIF-H190, Censitrac # [id number] was introduced through the mouth, and ?advanced [...] Note Initiated On: 02/25/2024 3:01 PM MRN: ?[id number] Procedure Date: ? 02/25/2024 3:01:34 PM Total Procedure Duration: 0 hours 2 minutes 56 seconds Estimated Blood Loss: ? Scope In: 3:19:43 PM Scope Out: 3:22:39 PM RADIOLOGY RESULTS 02/25/2024 3:01 PM CDT Momo Hercules MD PROCEDURES RADIOLOGY RESULTS * (ABNORMAL) Hemoglobin (02/25/2024 11:58 AM CDT) Hemoglobin 8.5(L) 13.3 - 17.7 g/dL 02/25/2024 12:03 PM CDT [facility] Blood STRUCTURE OF RIGHT HAND / Unknown Venipuncture / Unknown 02/25/2024 11:58 AM CDT 02/25/2024 12:01 PM CDT Gómez Blackwood PA-C LAB - BLOOD ORDERABL ES LABORATORY [facility] [address] Lab (1st floor, no room number) [place] [address], [facility] * (ABNORMAL) INR (02/25/2024 9:28 AM CDT) INR 3.00(H) 0.85 - 1.15 02/25/2024 9:46 AM CDT [facility] Blood BLOOD SPECIMEN / Unknown Venipuncture / Unknown 02/25/2024 9:28 AM CDT 02/25/2024 9:32 AM CDT Georgia Perez DO LAB - BLOOD ORDER NADIA LABORATORY [facility] [address] Lab (1st floor, no room number) [place] [address] * Hepatitis B surface antigen (02/25/2024 6:45 AM CDT) Hepatitis B Surface Antigen Nonreactive Nonreactive 02/25/2024 10:36 AM CDT LABORATORY Blood STRUCTURE OF LEFT UPPER LIMB / Unknown Venipuncture / Unknown 02/25/2024 6:45 AM CDT 02/25/2024 6:51 AM CDT Mann Brush DO LAB - BLOOD ORDERABL ES LABORATORY [facility] [place] [facility] [address], [address] [place] [address] * (ABNORMAL) Hemoglobin (02/25/2024 6:45 AM CDT) Hemoglobin 7.8(L) 13.3 - 17.7 g/dL 02/25/2024 7:29 AM CDT LABORATORY Blood STRUCTURE OF LEFT UPPER LIMB / Unknown Venipuncture / Unknown 02/25/2024 6:45 AM CDT 02/25/2024 6:51 AM CDT Gómez Blackwood PA-C LAB - BLOOD ORDERABL ES LABORATORY [facility] [address] Lab (1st floor, no room number) [place] [address] * (ABNORMAL) CBC with platelets (02/25/2024 6:45 AM CDT) WBC Count 6.6 4.0 - 11.0 10e3/uL 02/25/2024 7:29 AM CDT LABORATORY RBC Count 2.66(L) 4.40 - 5.90 10e6/uL 02/25/2024 7:29 AM CDT [facility] Hemoglobin 7.8(L) 13.3 - 17.7 g/dL 02/25/2024 7:29 AM CDT [facility] Hematocrit 24.3(L) 40.0 - 53.0 % 02/25/2024 7:29 AM CDT [facility] MCV 91 78 - 100 fL 02/25/2024 7:29 AM CDT [facility] MCH 29.3 26.5 - 33.0 pg 02/25/2024 7:29 AM CDT [facility] MCHC 32.1 31.5 - 36.5 g/dL 02/25/2024 7:29 AM CDT [facility] RDW 16.7(H) 10.0 - 15.0 % 02/25/2024 7:29 AM CDT [facility] Platelet Count 117(L) 150 - 450 10e3/uL 02/25/2024 7:29 AM CDT [facility] Blood STRUCTURE OF LEFT UPPER LIMB / Unknown Venipuncture / Unknown 02/25/2024 6:45 AM CDT 02/25/2024 6:51 AM CDT Gómez Blackwood PA-C LAB - BLOOD ORDERABL ES LABORATORY [facility] [address] Lab (1st floor, no room number) [place] [address], [facility] * (ABNORMAL) Basic metabolic panel (02/25/2024 6:45 AM CDT) [facility] Signature Sodium 126(L) 135 - 145 mmol/L 02/25/2024 [...] 6:45 AM CDT 02/25/2024 6:51 AM CDT Gómez Blackwood PA-C LAB - BLOOD ORDERABL ES LABORATORY [facility] [address] [facility] ([facility], no room number) [place] [address] * Transfuse red blood cells (unit) (02/25/2024 12:35 AM CDT) Mazin Srivastava MD BLOOD TRANSFUSION OR DERABLES * Transfuse red blood cells (unit), 1 Units (02/25/2024 12:35 AM CDT) Mazin Srivastava MD BLOOD TRANSFUSION OR DERABLES * Prepare red blood cells (unit) (02/24/2024 9:17 PM CDT) Blood Component Type Red Blood Cells RH BLOOD BANK Product Code Q9288A08 RH BLOO D BANK Unit Status Transfused RH BLOO D BANK Unit Number [id number] RH B LOOD BANK CROSSMATCH Compatible RH BLOOD BANK CODING SYSTEM [id number] RH BLO OD BANK ISSUE DATE AND TIME [id number] RH BLOOD BANK UNIT ABO/RH O+ RH BLOOD BANK UNIT TYPE ISBT 5100 RH BL OOD BANK 02/24/2024 9:17 PM CDT Mazin Srivastava MD BLOOD BANK PRODUCT O RDERABLES Performing Organization Address [facility] Co de Phone Number BLOOD BANK [address] [place] [address] * Transfuse red blood cells (unit) (02/24/2024 9:11 PM CDT) Mazin Srivastava MD BLOOD TRANSFUSION OR DERABLES * Transfuse red blood cells (unit), 1 Units (02/24/2024 9:11 PM CDT) Mazin Srivastava MD BLOOD TRANSFUSION OR DERABLES * Prepare red blood cells (unit) (02/24/2024 6:19 PM CDT) Blood Component Type Red Blood Cells RH BLOOD BANK Product Code [id number] RH BLOO D BANK Unit Status Transfused RH BLOO D BANK Unit Number [id number] RH B LOOD BANK CROSSMATCH Compatible RH BLOOD BANK CODING SYSTEM [id number] RH BLO OD BANK ISSUE DATE AND TIME [id number] RH BLOOD BANK UNIT ABO/RH O+ RH BLOOD BANK UNIT TYPE ISBT 5100 RH BL OOD BANK 02/24/2024 6:19 PM CDT Jae Noel MD BLOOD BANK PRODUCT O RDERABLES Performing Organization Address [facility] Co de Phone Number RH BLOOD BANK [address] [place] [address] * (ABNORMAL) Hemoglobin (02/24/2024 5:51 PM CDT) Hemoglobin 6.7(LL) 13.3 - 17.7 g/dL 02/24/2024 6:14 PM CDT RH LABORATORY Blood STRUCTURE OF LEFT UPPER LIMB / Unknown Venipuncture / Unknown 02/24/2024 5:51 PM CDT 02/24/2024 6:00 PM CDT Gómez Blackwood PA-C LAB - BLOOD ORDERABL ES Performing Organization Address City/[facility]/ZIP Co de Phone Number [facility] [address] Lab (1st floor, no room number) [place] [address] * Transfuse red blood cells (unit) (02/24/2024 2:35 PM CDT) Jae Noel MD BLOOD TRANSFUSION OR DERABLES * Transfuse red blood cells (unit), 1 Units (02/24/2024 2:35 PM CDT) Jae Noel MD BLOOD TRANSFUSION OR DERABLES * Prepare red blood cells (unit) (02/24/2024 11:35 AM CDT) Blood Component Type Red Blood Cells RH BLOOD BANK Product Code [id number] RH BLOO D BANK Unit Status Transfused RH BLOO D BANK Unit Number [id number] RH B LOOD BANK CROSSMATCH Compatible RH BLOOD BANK CODING SYSTEM [id number] RH BLO OD BANK ISSUE DATE AND TIME [id number] RH BLOOD BANK UNIT ABO/RH O+ RH BLOOD BANK UNIT TYPE ISBT 5100 RH BL OOD BANK 02/24/2024 11:3 5 AM CDT Jae Noel MD BLOOD BANK PRODUCT O RDERABLES Performing Organization Address [facility]/ZIP Co de Phone Number BLOOD BANK [address] [place] [address] * (ABNORMAL) Occult blood stool (02/24/2024 11:31 AM CDT) Occult Blood Positive(A ) Negative JOJO 02/24/2024 11:40 AM CDT RH LABORATORY Stool RECTAL CONTENTS / Unknown Non-blood Collection / Unknown 02/24/2024 11:31 AM CDT 02/24/2024 11:38 AM CDT Jae Noel MD LAB - STOOLS ORDERAB LES Performing Organization Address City/[facility]/ZIP Co de Phone Number [facility] [address] Lab (1st floor, no room number) [place] [address] * CT Head w/o Contrast (02/24/2024 10:42 AM CDT) Anatomical Region Laterality Modality Head, SUBRAD CT NEURO, SUBRA D CT NEURO, UMP CT NEURO, RAD CT Computed Tomography Impressions 02/24/2024 11:11 AM CDT IMPRESSION: 1. No acute intracranial pathology. 2. Chronic small vessel ischemic disease and generalized cerebral volume loss. FLAKO ZUNIGA MD SYSTEM ID: ??[id number] Narrative 02/24/2024 11:11 AM CDT EXAM: CT HEAD W/O CONTRAST ??02/24/2024 10:42 AM HISTORY: ??Altered mental status, cocnern for ICH, on coumadin ?? COMPARISON: ??No prior similar studies TECHNIQUE: Using multidetector thin collimation helical acquisition technique, axial, coronal and sagittal CT images from the skull base to the vertex were obtained without intravenous contrast. Mems Device Scientist (topogram) image(s) also obtained and reviewed. Dose [...] the vertex were obtained without intravenous contrast. Mems Device Scientist (topogram) image(s) also obtained and reviewed. Dose [...] volume loss. FLAKO ZUNIGA MD SYSTEM ID: [id number] Jae Noel MD IMG CT ORDERABLES * [...] AM CDT Jae Noel MD LAB - BEAKER POCT RH LABORATORY POC [facility] [address] [facility] Lab (1st floor, no room number) [place] [address], [facility] * EKG 12-lead, tracing only (02/24/2024 10:12 AM CDT) Systolic Blood Pressure mmHg RADIOLOGY RESULTS Diastolic Blood Pressure mmHg RADIOLOGY RESULTS Ventricular Rate 77 BPM RAD IOLOGY RESULTS Atrial Rate 77 BPM RADIOLOG Y RESULTS NY Interval 210 ms RADIOLOG Y RESULTS QRS Duration 98 ms RADIOLO GY RESULTS QT 382 ms RADIOLOGY RESULTS QTc 432 ms RADIOLOGY RESULTS P Linton 49 degrees RADIOLOGY RESULTS R AXIS 6 degrees RADIOLOGY RESULTS T L[place] 36 degrees RADIOLOGY RESULTS Interpretation ECG Sinus rhythm with 1st degree A-V block Otherwise normal ECG When compared with ECG of 16-DEC-2015 14:48, Criteria for Septal infarct are no longer Present Unconfirmed report - interpretation of this ECG is computer generated - see medical record for final interpretation Confirmed by - EMERGENCY ROOM, PHYSICIAN ([id number]), rewrite editor YISSEL VELASQUEZ ([id number]) on 02/24/2024 10:54:14 AM RADIOLOGY RESULTS 02/24/2024 10:1 2 AM CDT 02/24/2024 10:54 AM CDT Jae Noel MD ECG ORDERABLES RADIOLOGY RESULTS * Adult Type and Screen (02/24/2024 10:07 AM CDT) ABO/RH(D) O POS 02/24/2024 10:08 AM CDT RH BLOOD BANK Antibody Screen Negative Negative 02/24/2024 10:08 AM CDT RH BLOOD BANK SPECIMEN EXPIRATION DATE [id number] 02/24/2024 10:08 AM CDT RH BLOOD BANK Blood STRUCTURE OF RIGHT UPPER LIMB / Unknown Venipuncture / Unknown 02/24/2024 10:07 AM CDT 02/24/2024 10:12 AM CDT Jae Noel MD LAB - BLOOD BANK SHANNON T ORDER RH BLOOD BANK [address] [place] [address], [facility] * Ammonia (02/24/2024 10:06 AM CDT) Ammonia 26 16 - 60 umol/L 02/24/2024 10:32 AM CDT RH LABORATORY Blood STRUCTURE OF RIGHT UPPER LIMB / Unknown Venipuncture / Unknown 02/24/2024 10:06 AM CDT 02/24/2024 10:13 AM CDT Jae Noel MD LAB - BLOOD ORDERABL ES RH LABORATORY [facility] [address] Lab (1st floor, no room number) [place] [address], [facility] * (ABNORMAL) CBC with platelets and [...] NRBCs per 100 WBC 0 <1 /100 05/17/2 024 10:38 AM CDT RH LABORATORY Absolute [...] Noel MD LAB - BLOOD ORDERABL ES [facility] [address] Lab (1st floor, no room number) [place] [phone] [place] [address] * (ABNORMAL) INR (02/24/2024 9:58 AM CDT) INR 2.46(H) 0.85 - 1.15 02/24/2024 10:26 AM CDT RH LABORATORY Blood STRUCTURE OF RIGHT UPPER LIMB / Unknown Venipuncture / Unknown 02/24/2024 9:58 AM CDT 02/24/2024 10:11 AM CDT Jae Noel MD LAB - BLOOD ORDERABL ES [facility] [address] Lab (1st floor, no room number) [place] [address], [place] * (ABNORMAL) Comprehensive metabolic panel (02/24/2024 9:58 AM CDT) [facility] Sodium 130(L) 135 - 145 mmol/L 02/24/2024 [...] - 29 mmol/L 02/24/2024 10:37 AM CDT RH LABORATORY Anion Gap 18(H) 7 - 15 mmol/L 02/24/2024 10:37 AM CDT RH LABORATORY Urea Nitrogen 76.2(H) 8.0 - 23.0 mg/dL 02/24/2024 10:37 AM CDT RH LABORATORY Creatinine 8.60(H) 0.67 - 1.17 mg/dL 02/24/2024 10:37 AM CDT RH LABORATORY GFR Estimate 7(L) >60 mL/min/1. 73m2 02/24/2024 10:37 AM CDT RH LABORATORY Calcium 8.3(L) 8.8 - 10.2 mg/dL 02/24/2024 10:37 AM CDT RH LABORATORY Chloride 88(L) 98 - 107 mmol/L 02/24/2024 10:37 AM CDT LABORATORY Glucose 147(H) 70 - 99 mg/dL 02/24/2024 10:37 AM CDT RH LABORATORY Alkaline Phosphatase 72 40 - 150 U/L 02/24/2024 10:37 AM CDT RH LABORATORY [...] - 45 U/L 02/24/2024 10:37 AM CDT RH LABORATORY [...] Noel MD LAB - BLOOD ORDERABL ES [facility] [address] Lab (1st floor, no room number) [place] [phone] [place] [address] * Extra Purple Top Tube (02/24/2024 9:58 AM CDT) [facility] Hold Specimen [facility] 02/24/2024 11:16 AM CDT RH LABORATORY Blood STRUCTURE OF RIGHT UPPER LIMB / Unknown Venipuncture / Unknown 02/24/2024 9:58 AM CDT 02/24/2024 10:11 AM CDT Jae Noel MD LAB - BLOOD ORDERABL ES [facility] [address] Lab (1st floor, no room number) [place] [address], [facility] * Extra Green Top ([place] Heparin) Tube (02/24/2024 9:58 AM CDT) Hold Specimen [facility] 02/24/2024 11:16 AM CDT LABORATORY Blood STRUCTURE OF RIGHT UPPER LIMB / Unknown Venipuncture / Unknown 02/24/2024 9:58 AM CDT 02/24/2024 10:11 AM CDT Jae Noel MD LAB - BLOOD ORDERABL ES Performing Organization Address City/[facility]/ZIP Co de Phone Number [facility] [address] Lab (1st floor, no room number) [place] [address] * Extra Blue Top Tube (02/24/2024 9:58 AM CDT) Hold Specimen [facility] 02/24/2024 11:16 AM CDT LABORATORY Blood STRUCTURE OF RIGHT UPPER LIMB / Unknown Venipuncture / Unknown 02/24/2024 9:58 AM CDT 02/24/2024 10:11 AM CDT Jae Noel MD LAB - BLOOD ORDERABL ES Performing Organization Address [facility]/ZIP Co de Phone Number [facility] [address] Lab (1st floor, no room number) [place] [phone] [place] [address] documented in this encounter Visit Diagnoses Diagnosis Anemia, unspecified type ESRD on dialysis (H) End stage renal disease Altered mental status, unspecified altered mental status type Gastrointestinal hemorrhage, unspecified gastrointestinal hemorrhage type ESRD on dialysis (H) End stage renal disease Altered mental status, unspecified altered mental status type Gastrointestinal hemorrhage, unspecified gastrointestinal hemorrhage type Anemia, unspecified type Anemia Anemia, unspecified documented in this encounter Administered Medications Inactive Administered Medications - up to 3 most recent administrations Medication Order MAR Action Action Date Dose Rate Site acetaminophen (TYLENOL) Suppository 650 mg 650 mg, Rectal, EVERY 4 HOURS PRN, mild pain, other, and adjunct with moderate or severe pain or per patient request, Starting on Tue02/24/24 at 1414, Alternate with ibuprofen if ordered. Maximum acetaminophen dose from all sources = 75 mg/kg/day not to exceed 4 grams/day. acetaminophen (TYLENOL) tablet 650 mg 650 mg, Oral, EVERY 4 HOURS PRN, mild pain, other, and adjunct with moderate or severe pain or per patient request, Starting on Tue02/24/24 at 1414, Alternate with ibuprofen if ordered. Maximum acetaminophen dose from all sources = 75 mg/kg/day not to exceed 4 grams/day. pantoprazole (PROTONIX) IV push injection 40 mg 40 mg, Intravenous, 2 TIMES DAILY, First dose (after last modification) on Tue02/24/24 at 2100, Irritant. $Given 02/26/2024 8:31 AM CDT 40 mg $Given 02/25/2024 9:07 PM CDT 40 mg $Given 02/25/2024 12:12 PM CDT 40 mg senna-docusate (SENOKOT-S/PERICOLACE) 8.6-50 MG per tablet 1 tablet 1 tablet, Oral, 2 TIMES DAILY PRN, constipation, Starting on Tue02/24/24 at 1408, If no bowel movement in 24 hours, increase to 2 tablets by mouth. IF more than 1 constipation PRN medication is ordered, administer step-jane as indicated, moving to the next step ONLY if prior step ineffective. Step 1: senna-docusate (SENOKOT-S; PERICOLACE) OR bisacodyl (DULCOLAX) EC tablet Step 2: polyethylene glycol (MIRALAX/GLYCOLAX) Step 3: bisacodyl (DULCOLAX) suppository Step 4: enema Hold for loose stools. senna-docusate (SENOKOT-S/PERICOLACE) 8.6-50 MG per tablet 2 tablet 2 tablet, Oral, 2 TIMES DAILY PRN, constipation, Starting on Tue02/24/24 at 1408, IF more than 1 constipation PRN medication is ordered, administer step-jane as indicated, moving to the next step ONLY if prior step ineffective. Step 1: senna-docusate (SENOKOT-S; PERICOLACE) OR bisacodyl (DULCOLAX) EC tablet Step 2: polyethylene glycol (MIRALAX/GLYCOLAX) Step 3: bisacodyl (DULCOLAX) suppository Step 4: enema Hold for loose stools. sodium chloride (PF) 0.9% PF flush 3 mL 3 mL, Intracatheter, EVERY 8 HOURS, First dose on Tue02/24/24 at 1430, to lock peripheral IV dormant line $Given 02/25/2024 9:07 PM CDT 3 mLs $Given 02/25/2024 2:11 PM CDT 3 mLs $Given 02/24/2024 9:53 PM CDT 3 mLs sodium chloride 0.9% BOLUS 1-250 mL Intravenous, 1-250 mL, EVERY 1 HOUR PRN, To prime infusion tubing AND flush blood through tubing POST blood component administration., Starting on Tue02/24/24 at 1134, IF blood component ordered, nurse to administer rate and volume of fluid pre-blood component administration to PRIME tubing AND to FLUSH blood through tubing post blood component administration UNTIL tubing is clear of visible blood. Use MINIMUM volume necessary for pre and post blood component administration. IF duplicate order nurse to discontinue the duplicate order. warfarin ANTICOAGULANT (COUMADIN) tablet 5 mg 5 mg, Oral, ONCE AT 6PM, On Tue02/26/24 at 1800, For 1 dose Warfarin Dose Required Daily - Pharmacist Managed SEE ADMIN INSTRUCTIONS, Starting on Tue02/26/24 at 0931, Until Tue02/26/24 at 1731, *Note to reorder warfarin daily* Nurse to contact pharmacist if dose not ordered by 6 PM. Pharmacy Warfarin Dosing Service Patient is on Warfarin Therapy - check for daily order documented in this encounter Active and Recently Administered Medications Times are shown in CDT. Scheduled Medication Order 02/24/2024 02/25/2024 02/26/2024 CT Scan Flush (COMPLETED) Intravenous, 100 mL, ONCE, On [facility] 02/25/24 at 1700, For 1 dose, This entry is for use by Radiology to intermittently used as a flush in patients receiving a CT scan. 1650 ($Given - Provider: William Corrales) iopamidol (ISOVUE-370) solution 500 mL (COMPLETED) 500 mL, Intravenous, ONCE, On [facility] 02/25/24 at 1700, For 1 dose 1649 ($Given - Provider: William Corrales) pantoprazole (PROTONIX) IV push injection 40 mg 40 mg, Intravenous, 2 TIMES DAILY, First dose (after last modification) on Tue02/24/24 at 2100, Irritant. 2153 ($Given - Provider: Ramila Singh RN) 1212 ($Given - Provider: Pal Franklin RN - Comment: given after dialysis)2107 ($Given - Provider: Foreign Lozada RN) 0831 ($Given - Provider: Adalgisa Amaya RN) pantoprazole (PROTONIX) IV push injection 80 mg (COMPLETED) 80 mg, Intravenous, ONCE, On Tue02/24/24 at 1210, For 1 dose, Irritant. 1219 ($Given - Provider: Yasemin Colunga, LINDA) phytonadione (AQUA-MEPHYTON) 2 mg in sodium chloride 0.9 % 50 mL intermittent infusion (COMPLETED) 2 mg, Intravenous, Administer over 30 Minutes, at 100 mL/hr, ONCE, On Tue02/25/24 at 1030, For 1 dose 1220 ($Given - Provider: Pal Franklin RN - Comment: given upon return from dialysis) sodium chloride (PF) 0.9% PF flush 3 mL 3 mL, Intracatheter, EVERY 8 HOURS, First dose on Tue02/24/24 at 1430, to lock peripheral IV dormant line 1614 (Canceled Entry - Provider: Ramila Singh RN)2153 ($Given - Provider: Ramila Singh RN) 0610 (Canceled Entry - Provider: Norma Mcmahon RN - Comment: Flush prior post PRBC infusion.)1411 ($Given - Provider: Pal Franklin RN)2107 ($Given - Provider: Foreign Lozada RN) 0531 (Not Given - Provider: Foreign Lozada RN - Reason: Patient sleeping)1400 (Canceled Entry - Provider: Orders Generic Provider - Comment: Automatically canceled at discontinue of medication order) sodium chloride 0.9% BOLUS 250 mL (COMPLETED) Intravenous, 250 mL, ONCE, at 250 mL/hr, Administer over 1 Hours, On Tue02/24/24 at 1005, For 1 dose 1008 ($New Bag - Provider: Yasemin Colunga RN)1131 (Stopped - Provider: Yasemin Colunga, LINDA) sodium chloride 0.9% BOLUS 250 mL (COMPLETED) Intravenous, 250 mL, ONCE IN DIALYSIS/CRRT, On Tue02/24/24 at 1400, For 1 dose, For patient prime during dialysis, Dialysis 1614 (Canceled Entry - Provider: Ramila Singh RN - Comment: Dilaysis tomorrow) 0931 ($New Bag - Provider: Molly Simms, RN) sodium chloride 0.9% BOLUS 300 mL (COMPLETED) Hemodialysis Machine, 300 mL, ONCE, On Tue02/24/24 at 1400, For 1 dose, For Dialyzer Prime. (In Dialyzer), Dialysis 1614 (Canceled Entry - Provider: Ramila Singh RN - Comment: Dilaysis tomorrow) 0932 ($New Bag - Provider: Molly Simms, RN) warfarin ANTICOAGULANT (COUMADIN) tablet 5 mg 5 mg, Oral, ONCE AT 6PM, On 02/26/24 at 1800, For 1 dose Warfarin Dose Required Daily - Pharmacist Managed SEE ADMIN INSTRUCTIONS, Starting on 02/26/24 at 0931, Until 02/26/24 at 1731, *Note to reorder warfarin daily* Nurse to contact pharmacist if dose not ordered by 6 PM. Pharmacy Warfarin Dosing Service Patient is on Warfarin Therapy - check for daily order PRN Medication Order 02/24/2024 02/25/2024 02/26/2024 acetaminophen (TYLENOL) Suppository 650 mg(Linked Group 1) 650 mg, Rectal, EVERY 4 HOURS PRN, mild pain, other, and adjunct with moderate or severe pain or per patient request, Starting on Tue02/24/24 at 1414, Alternate with ibuprofen if ordered. Maximum acetaminophen dose from all sources = 75 mg/kg/day not to exceed 4 grams/day. acetaminophen (TYLENOL) tablet 650 mg(Linked Group 1) 650 mg, Oral, EVERY 4 HOURS PRN, mild pain, other, and adjunct with moderate or severe pain or per patient request, Starting on Tue02/24/24 at 1414, Alternate with ibuprofen if ordered. Maximum acetaminophen dose from all sources = 75 mg/kg/day not to exceed 4 grams/day. benzocaine 20% (HURRICAINE/TOPEX) 20 % spray 0.5 mL (COMPLETED) 0.5 mL (1 spray), Mouth/Throat, ONCE PRN, sore throat, Starting on 02/25/24 at 1421, For 1 dose, [place] throat with 1 spray 5 minutes prior to procedure., Intra-procedure 1518 ($Given - Provider: Jesika Draper RN) calcium carbonate (TUMS) chewable tablet 1,000 mg 1,000 mg, Oral, 4 TIMES DAILY PRN, heartburn, Starting on Tue02/24/24 at 1408 fentaNYL (PF) (SUBLIMAZE) injection 50-100 mcg (CANCELED) 50-100 mcg, Intravenous, EVERY 5 MIN PRN, severe pain, If inadequate response may repeat every 3 min PRN severe pain; when verbally requested by provider., Starting on 02/25/24 at 1421, Doses can be exceeded under direct oversight of patient by physician., Intra-procedure 1516 ($Given - Provider: Jesika Draper RN) lidocaine (LMX4) cream Topical, EVERY 1 HOUR PRN, pain, with VAD insertion, Starting on Tue02/24/24 at 1408, Apply at least 30 minutes prior to VAD insertion in divided doses as needed for size of site for insertion. MAX Dose: 2.5 g (?? of 5 g tube) Do NOT give if patient has a history of allergy to any local anesthetic or any anabell product. Do NOT use both lidocaine intradermal/subcutaneous injection and the lidocaine cream on the same site. lidocaine 1 % 0.1-1 mL 0.1-1 mL, Other, EVERY 1 HOUR PRN, mild pain with VAD insertion, Starting on Tue02/24/24 at 1408, MAX dose 1 mL subcutaneous OR intradermal along the side of the vein in divided doses as needed for VAD insertion. Do NOT give if patient has a history of allergy to any local anesthetic or any anabell product. Do NOT use both lidocaine intradermal/subcutaneous injection and the lidocaine cream on the same site. midazolam (VERSED) injection 0.5-2 mg (CANCELED) 0.5-2 mg, Intravenous, EVERY 4 MIN PRN, sedation, If inadequate response may repeat every 4 minutes PRN sedation until desired response; when verbally requested by provider., Starting on 02/25/24 at 1421, Doses can be exceeded under direct oversight of patient by physician. This drug may cause significant respiratory depression. Monitor respiratory status and vital signs carefully for 1 hour after each dose., Intra-procedure 1516 ($Given - Provider: Jesika Draper RN) senna-docusate (SENOKOT-S/PERICOLACE) 8.6-50 MG per tablet 1 tablet(Linked Group 2) 1 tablet, Oral, 2 TIMES DAILY PRN, constipation, Starting on Tue02/24/24 at 1408, If no bowel movement in 24 hours, increase to 2 tablets by mouth. IF more than 1 constipation PRN medication is ordered, administer step-jane as indicated, moving to the next step ONLY if prior step ineffective. Step 1: senna-docusate (SENOKOT-S; PERICOLACE) OR bisacodyl (DULCOLAX) EC tablet Step 2: polyethylene glycol (MIRALAX/GLYCOLAX) Step 3: bisacodyl (DULCOLAX) suppository Step 4: enema Hold for loose stools. senna-docusate (SENOKOT-S/PERICOLACE) 8.6-50 MG per tablet 2 tablet(Linked Group 2) 2 tablet, Oral, 2 TIMES DAILY PRN, constipation, Starting on Tue02/24/24 at 1408, IF more than 1 constipation PRN medication is ordered, administer step-jane as indicated, moving to the next step ONLY if prior step ineffective. Step 1: senna-docusate (SENOKOT-S; PERICOLACE) OR bisacodyl (DULCOLAX) EC tablet Step 2: polyethylene glycol (MIRALAX/GLYCOLAX) Step 3: bisacodyl (DULCOLAX) suppository Step 4: enema Hold for loose stools. sodium chloride (PF) 0.9% PF flush 3 mL 3 mL, Intracatheter, EVERY 1 MIN PRN, line flush, other, to ensure patency or to lock dormant line, Starting on Tue02/24/24 at 1408 sodium chloride 0.9% BOLUS 1-250 mL Intravenous, 1-250 mL, EVERY 1 HOUR PRN, To prime infusion tubing AND flush blood through tubing POST blood component administration., Starting on Tue02/24/24 at 1134, IF blood component ordered, nurse to administer rate and volume of fluid pre-blood component administration to PRIME tubing AND to FLUSH blood through tubing post blood component administration UNTIL tubing is clear of visible blood. Use MINIMUM volume necessary for pre and post blood component administration. IF duplicate order nurse to discontinue the duplicate order. Linked Groups Order Group 1: acetaminophen (TYLENOL) tablet 650 mgJump to med 650 mg, Oral, EVERY 4 HOURS PRN, mild pain, other, and adjunct with moderate or severe pain or per patient request, Starting on Tue02/24/24 at 1414, Alternate with ibuprofen if ordered. Maximum acetaminophen dose from all sources = 75 mg/kg/day not to exceed 4 grams/day. Or acetaminophen (TYLENOL) Suppository 650 mgJump to med 650 mg, Rectal, EVERY 4 HOURS PRN, mild pain, other, and adjunct with moderate or severe pain or per patient request, Starting on Tue02/24/24 at 1414, Alternate with ibuprofen if ordered. Maximum acetaminophen dose from all sources = 75 mg/kg/day not to exceed 4 grams/day. Group 2: senna-docusate (SENOKOT-S/PERICOLACE) 8.6-50 MG per tablet 1 tabletJump to med 1 tablet, Oral, 2 TIMES DAILY PRN, constipation, Starting on Tue02/24/24 at 1408, If no bowel movement in 24 hours, increase to 2 tablets by mouth. IF more than 1 constipation PRN medication is ordered, administer step-jane as indicated, moving to the next step ONLY if prior step ineffective. Step 1: senna-docusate (SENOKOT-S; PERICOLACE) OR bisacodyl (DULCOLAX) EC tablet Step 2: polyethylene glycol (MIRALAX/GLYCOLAX) Step 3: bisacodyl (DULCOLAX) suppository Step 4: enema Hold for loose stools. Or senna-docusate (SENOKOT-S/PERICOLACE) 8.6-50 MG per tablet 2 tabletJump to med 2 tablet, Oral, 2 TIMES DAILY PRN, constipation, Starting on Tue02/24/24 at 1408, IF more than 1 constipation PRN medication is ordered, administer step-jane as indicated, moving to the next step ONLY if prior step ineffective. Step 1: senna-docusate (SENOKOT-S; PERICOLACE) OR bisacodyl (DULCOLAX) EC tablet Step 2: polyethylene glycol (MIRALAX/GLYCOLAX) Step 3: bisacodyl (DULCOLAX) suppository Step 4: enema Hold for loose stools. documented in this encounter Care Teams Striker Out Relationship Specialty Start Date End Date Huff, Preet L PCP - General 06/24/11 documented as of this encounter
--- OUTSIDE RECORDS SUMMARY | 2024-02-29 09:47 | XMS_ITS | Encounter Summary ---
Author Organization [place] Address [address] 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 [place] [phone] Layla Garcia RN Social History Tobacco Use Types Packs/Day Years Used Date Smoking Tobacco: Never Smokeless Tobacco: Never Alcohol Use Standard Drinks/Week Comments No 0 (1 standard drink = 0.6 oz pur e alcohol) Sex and Gender Information Value Date Recorded Sex Assigned at Not on file Gender Identity Male 12/05/2017 10:39 AM [facility] Sexual Orientation Not on file documented as of this encounter Plan of Treatment Not on file documented as of this encounter Visit Diagnoses Not on filedocumented in this encounter Care Teams Auto Air Conditioning Installer Relationship Specialty Start Date End Date Preet Huff PCP - General 06/24/11 Jaxon Saravia MD [id number] [place] [id number] Assigned Heart and Vascular Provider 08/01/20 12/06/20 documented as of this encounter
--- OUTSIDE RECORDS SUMMARY | 2024-02-29 09:47 | XMS_ITS | Encounter Summary ---
Author Organization [facility] Address [address] [place] [id number] Care Team Providers Care Haul Truck Driver Name Role Phone Preet Huff Primary Care Provider Reason for Visit * Reason Comments Altered [...] type Rh 3 Medical Surgical [address] [place] [address] Referral ID Status Reason Start Date Expiration Date Visits Re quested Visits Authorized [id number] 1 1 Encounter Details Date Type Department Care Team (Late st Contact Info) Description 02/24/2024 9:38 AM CDT - 02/26/2024 3:30 PM CDT Hospital Encounter [facility] 3 Medical Surgical [address] [place] [address] Jae Noel MD [facility] [address] [place], [place] [id number] Georgia Perez DO [address] [place], [place] [id number] Anemia, unspecified type; ESRD on dialysis (H); Altered mental status, unspecified altered mental status type; Gastrointestinal hemorrhage, unspecified gastrointestinal hemorrhage type Discharge Disposition: Home or Self Care Social History Tobacco Use Types Packs/Day Years [...] file Gender Identity Male 12/05/2017 10:39 AM 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 Patient wasseen at [facility] ED on 02/22 evening for concerns about [...] his mother and aunt who is his COMMISSIONER OF [employer]OCATION SERVICES. He is legally blind as well. 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 Georgia Perez DO [address] SURGICAL [address] [facility] [address] Physical Exam Vital Signs: Temp: 97.6 ??F [...] is related to your kidney disease. Your marine engineering professor will help with it. Follow-up and [...] the vertex were obtained without intravenous contrast. Rd Lab Technician (topogram) image(s) also obtained and reviewed. Dose [...] volume loss. FLAKO ZUNIGA MD SYSTEM ID: [id number] CT Abdomen Pelvis w Contrast Narrative EXAM: CT ABDOMEN PELVIS W CONTRAST LOCATION: [facility] DATE: 02/25/2024 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 Evaluate [...] sent through Care Everywhere. * Esophageal Varices (Egyptian) documented in this encounter Medications at Time [...] mom (Arianna), aunt (Thelma) who is alsohis COMMISSIONER OF [employer]OCATION SERVICES, cousin (Aron) who is also his COMMISSIONER OF [employer]OCATION [employer], and another cousin (Javon). Patient reports there are no stairs at home. Self-Care Usual Activity Tolerance good Current Activity Tolerance moderate Equipment Currently Used at Home none Fall history within last six months no (Per patient) Activity/Exercise/Self-Care Comment Patient's family provides 10 hours of COMMISS[employer]ER OF [employer]ATION [employer] services per day, cousin cares for patient [...] Evaluation Time PT Eval, Moderate Complexity Minutes (64186) 8 Physical Therapy Goals PT Frequency Daily PT Predicted Duration/Target Date for Goal Attainment 02/29/24 PT Goals Bed Mobility;Transfers;Gait PT: Bed Mobility Supine to/from sit;Rolling;Supervision/stand-by assist PT: Transfers Supervision/stand-by assist;Sit to/from stand;Bed to/from chair PT: Gait Supervision/stand-by assist;150 feet Interventions Interventions Quick Adds Therapeutic Activity Therapeutic Activity Therapeutic Activities: dynamic activities to improve functional performance Minutes (60351) 8 Symptoms Noted During/After Treatment Fatigue Treatment [...] lives with family, has 10 hours of COMMISS[employer]ER [employer] assist per day. Anticipate discharge home with family assisting. May benefit from home exercise program to address strength, balance, and endurance deficits. PT Brief overview of current status Ax1 Total Session Time Timed Code Treatment Minutes 8 Total Session Time (sum of timed and untimed services) 16 * Molly Simms, LINDA - 02/25/2024 10:34 AM CDT Potassium Date [...] to treatment See Adult Hemodialysis flowsheet in EPIC for further details and post assessment. Machine water alarm in place and functioning. Transducer pods intact and checked every 15min. Pt returned via bed. Chlorine/Chloramine water system checked every [address] Dialysis at [facility] Patient weight shifting, unable to make large shifts due to AVF in thigh Post treatment report given to Andre Franklin RN, RN Please remove patient dressing on AVF and AVG needle sites 24 hours after dialysis. If leaking occurs please apply a Band-Aid. * Georgia Perez DO - 02/25/2024 9:11 AM CDTFormatting of this note is different from the [facility] Medicine Progress Note - Hospitalist Service [...] Per his Aunt, patient was seen at [facility] ED on 02/22 evening for concerns about [...] his mother and aunt who is his [employer]. He is legally blind as well. Hx [...] 2-4 Days Georgia Perez DO Hospitalist Service [facility] Securely message with [employer] (more info) Text page via [facility] Paging/Directory Interval History No acute overnight events. [...] End-stage renal disease: Chronic Tuesday dialysis at [facility] Clay Roaster: Dr. Holman Access: Left thigh AV graft, [...] evaluation ongoing, possible EGD Mann Brush DO [facility] Office: [phone] Interval History: Patient seen during dialysis, admission [...] Q8H Gómez Blackwood PA-C 3 mL at 02/24/24 2153 sodium chloride 0.9% BOLUS 250 mL 250 [...] CHLORIDE 87* 88* JON 8.0* 8.3* CO2 BUN 102.6* 76.2* CR 10.14* 8.60* GLC 90 147* CBC Recent Labs Lab 02/25/24 0645 02/24/24 1751 02/24/24 0958 WBC 6.6 -- 6.4 HGB 7.8* 7.8* 6.7* 6.2* HCT 24.3* -- 20.0* MCV 91 -- 96 PLT 117* -- 133* Lab Results Component Value Date AST 02/24/2024 ALT 21 02/24/2024 ALKPHOS 72 02/24/2024 BILITOTAL 0.5 02/24/2024 DARLINE 26 02/24/2024 Lab Results Component Value Date INR 2.46 (H) 02/24/2024 Attestation: I have reviewed today's vital signs, notes, medications, labs and imaging. Mann Brush DO [facility] - Nephrology Office: [phone] * Mazin Srivastava MD - 02/24/2024 6:19 [...] Carola DATE/TIME LAB VALUE REPORTED TO PROVIDER: 1818 MECHANISM OF PROVIDER NOTIFICATION: Page PROVIDER RESPONSE: Orders to transfuse and conditional orders if <7 documented in this encounter H&P Notes * Gómez Blackwood PA-C - 02/24/2024 12:12 PM CDT [facility] History and Physical - Hospitalist Service [...] Per his Aunt, patient was seen at [facility] ED on 02/22 evening for concerns about [...] his mother and aunt who is his [employer]. He is legally blind as well. Hx [...] provider . GÓMEZ Blackwood PA-C Hospitalist Service [facility] Securely message with Voc[employer] (more info) Text page via [facility] Paging/Directory Chief Complaint Dark stools History is [...] Per his Aunt, patient was seen at [facility] ED on 02/22 evening for concerns about [...] LOWER EXTREMITY; Surgeon: Honorio Aceves MD; Location: OR REVISION FISTULA ARTERIOVENOUS LOWER EXTREMITY 05/08/2014 Procedure: REVISION FISTULA ARTERIOVENOUS LOWER EXTREMITY; Surgeon: Rober Saravia MD; Location: [place] REVISION FISTULA ARTERIOVENOUS LOWER EXTREMITY Left 06/04/2014 Procedure: REVISION FISTULA ARTERIOVENOUS LOWER EXTREMITY; Surgeon: Rober Saravia MD; Location: [place] REVISION FISTULA ARTERIOVENOUS LOWER EXTREMITY Left [...] LOWER EXTREMITY;; Surgeon: Rober Saravia MD; Location: OR Prior to Admission Medications Prior to Admission Medications Prescriptions Last Dose Informant Patient Reported? Taking? AMLODIPINE BESYLATE PO Assistant Operator Yes No Sig: Take 10 mg by mouth four times a week On Non dialysis days which is MWFSun BISACODYL PO Assistant Operator Yes No Sig: Take 10 mg by mouth four times a week (Takes 2 x 5mg tablet = 10mg dose) Tuesday, Tuesday, Tuesday, and Tuesday Calcium Acetate, Phos Binder, (CALCIUM ACETATE PO) Assistant Operator Yes No Sig: Take 1,334 mg by mouth 3 times daily (with meals) Takes with meals (2 x 667mg tablet) Cholecalciferol (VITAMIN D3 PO) Assistant Operator Yes No Sig: Take 2,000 Units by mouth every evening LISINOPRIL PO Assistant Operator Yes No Sig: Take 40 mg by mouth daily (Takes 2 x 20mg tablet = 40mg ) METOPROLOL TARTRATE PO Assistant Operator Yes No Sig: Take 100 mg by [...] the vertex were obtained without intravenous contrast. Rd Lab Technician (topogram) image(s) also obtained and reviewed. Dose [...] volume loss. FLAKO ZUNIGA MD SYSTEM ID: [id number] Associated attestation - Georgia Perez DO - [...] Communication Assessment Patient's communication style: spoken language (Egyptian or Bilingual) Hearing Difficulty or Deaf: no [...] Support: Care provided by: other (see comments) (COMMISSIONER OF [employer]OCATION SERVICES who is an aunt,Thelma and cousin Aron) Provides care for: no one, unable/limited ability to care for self Marital Status: Single COMM[employer]ER [employer]ATION SERVICES Description of Support System: Supportive, Involved Current Resources: Patient receiving home care services: No Community Resources: County Programs, County Worker, Dialysis Services, OP Dialysis, COMM[employer]ER [employer]ATION SERVICES, Transportation Services Equipment currently used at home: none Supplies currently used at home: Employment/Financial: Employment Status: unknown Financial Concerns: unknown Does the patient's insurance plan have a 3 day qualifying hospital stay waiver? No Lifestyle & Psychosocial Needs: Social Determinants of Health Food Insecurity: No Food Insecurity (06/23/2022) Received from [facility] Food Insecurity Worried About Running Out of Food in the Last Year: 1 Depression: Not at risk (05/22/2020) Received from [facility] PHQ-2 PHQ-2 Score: 0 Housing Stability: Low Risk (06/23/2022) Received from [facility] Housing Stability Unable to Pay for Housing in the Last Year: 1 Tobacco Use: Medium Risk (11/08/2023) Received from [facility] Patient History Smoking Tobacco Use: Never Smokeless Tobacco Use: Never Passive Exposure: Yes Financial Resource Strain: Low Risk (06/23/2022) [facility] Financial Resource Strain Difficulty of Paying Living Expenses: 3 Difficulty of Paying Living Expenses: Not on file Alcohol Use: Not on file Transportation Needs: No Transportation Needs (06/23/2022) Received from [facility] Transportation Needs Lack of Transportation (Medical): 1 Physical Activity: Not on file Interpersonal Safety: Not on file Stress: Not on file Social Connections: Unknown (06/24/2023) Received from [email or web address] Social Connections Frequency of Communication with Friends [...] No Current Concerns Values/Beliefs: Spiritual, Cultural Beliefs, Latter-Day Practices, Values that affect care: Additional Information: Chart reviewed. Emergency numbers listed on face sheet have been updated by [facility]. SW called and spokewith pt's aunt Thelma [phone] who reports pt lives with his mom Arianna, aunt Thelma who is also his COMMISSIONER [employer]OCATION SERVICES, cousin Aron who is also his COMMISSIONER OF [employer]OCATION SERVICES and another cousin Javon. They live in a house. Thelma reports Aron cares for pt Tue-Tue and she provides pt's care on Sundays, he receives 10 hrsof COMMISSIONER [employer]ATION [employer] services a day. She reports he is on a CADI Waiver. She reports he does not use any assistive devices. He gets dialysis on , W, F at [facility] [phone] and gets transportation there through [facility]. Plan: SW will continue to follow pt and assist with discharge planning. Katja DUNCAN, [facility] Inpatient Care Coordination [facility] [phone] * Dinorah Allen APRN ELEMENTARY EDUCATION TEACHER - 02/24/2024 2:34 PM CDTAssociated Order(s): GASTROENTEROLOGY IP CONSULT Images from the original note were not included. GASTROENTEROLOGY CONSULTATION Herminio Victor [address] [place] [id number] 58 year old male Admission Date/Time: 02/24/2024 [...] has had a colonoscopy or EGD before. ENTEROSTOMAL THERAPY NURSE medications reviewed which include omeprazole 20mg daily. [...] to person, tells me he is in [place], slow to respond PSYCH: [facility]: I [...] including patient evaluation, reviewing documentation/test results, and mental health orderly. Thank you for asking us to participate in the care of this patient. Dinorah Allen, ADRIAN [facility] ([facility]) [phone] Associated attestation - Momo Hercules MD - [...] 12:59 PM CDTAssociated Order(s): NEPHROLOGY IP CONSULT [facility] Nephrology Consultation Date of Admission: 02/24/2024 Assessment & Plan Herminio Victor is a 58 year old male who was admitted on 02/24/2024. Assessment: 1) End-stage renal disease: Chronic Tuesday dialysis at [facility] Clay Roaster: Dr. Holman Access: Left thigh AV graft, [...] anemia, GI bleeding workup per hospitalist DO [facility] [phone] Reason for Consult I was asked to see the patient for ESRD management History is obtained from the patient and chart review. History of Present Illness Herminio Victor is a 58 year old male who presents to the emergency room today with some concerns of anemia, GI bleeding. Also some agitation and altered mentation. Patient dialyzes Wednesdays and Fridays at [facility]. Found to have hemoglobin of 6.2 prompting [...] from dialysis unit, last visit by physician molded goods spot picker on 02/13/2024. Past Medical History I have reviewed this patient's medical history and updated it with pertinent information if needed. Past Medical History: Diagnosis Date A-V fistula (H) left forearm Anemia Anemia Blind Chronic in-center hemodialysis status (H) Cognitive deficits Diabetes mellitus (H) DVT (deep venous thrombosis) (H) ESRD (end stage renal disease) (H) dialysis T-TH-Tue History of staph septicemia 12/20/2015 Hyperkalemia Hyperlipemia [...] LOWER EXTREMITY; Surgeon: Honorio Aceves MD; Location: OR REVISION FISTULA ARTERIOVENOUS LOWER EXTREMITY 05/08/2014 Procedure: REVISION FISTULA ARTERIOVENOUS LOWER EXTREMITY; Surgeon: Rober Saravia MD; Location: [place] REVISION FISTULA ARTERIOVENOUS LOWER EXTREMITY Left 06/04/2014 Procedure: REVISION FISTULA ARTERIOVENOUS LOWER EXTREMITY; Surgeon: Rober Saravia MD; Location: [place] REVISION FISTULA ARTERIOVENOUS LOWER EXTREMITY Left [...] LOWER EXTREMITY;; Surgeon: Rober Saravia MD; Location: OR Prior to Admission Medications Prior to Admission Medications Prescriptions Last Dose Informant Patient Reported? Taking? AMLODIPINE BESYLATE PO Assistant Operator Yes No Sig: Take 10 mg by mouth four times a week On Non dialysis days which is MWFSun BISACODYL PO Assistant Operator Yes No Sig: Take 10 mg by mouth four times a week (Takes 2 x 5mg tablet = 10mg dose) Tuesday, Tuesday, Tuesday, and Tuesday Calcium Acetate, Phos Binder, (CALCIUM ACETATE PO) Assistant Operator Yes No Sig: Take 1,334 mg by mouth 3 times daily (with meals) Takes with meals (2 x 667mg tablet) Cholecalciferol (VITAMIN D3 PO) Assistant Operator Yes No Sig: Take 2,000 Units by mouth every evening LISINOPRIL PO Assistant Operator Yes No Sig: Take 40 mg by mouth daily (Takes 2 x 20mg tablet = 40mg ) METOPROLOL TARTRATE PO Assistant Operator Yes No Sig: Take 100 mg by [...] Hernandez RN - 02/24/2024 11:51 AM CDT [facility] ED Nurse Handoff Report ED Chief [...] 2. Lift room needed: Yes. Bariatric: No Floor Worker Well Service Needed: No Isolation: No. Infection: Not Applicable. Respiratory status: Room air Vital Signs (within 30 minutes): Vitals: 02/24/24 1015 02/24/24 1030 02/24/24 1100 02/24/24 1115 BP: 105/48 105/49 Pulse: 76 76 74 75 Resp: 08 20 16 12 Temp: TempSrc: SpO2: 100% 100% [...] was sent here. He was seen at [facility] yesterday but nothing was found to be [...] Component Type Red Blood Cells Product Code T7175T53 Unit Status Not used Unit Number [id number] CROSSMATCH Compatible CODING SYSTEM [id number] UNIT ABO/RH O+ UNIT TYPE ISBT 5100 PREPARE RED BLOOD CELLS (UNIT) Blood Component Type Red Blood Cells Product Code C7808Y87 Unit Status Ready for issue Unit Number [id number] CROSSMATCH Compatible CODING SYSTEM [id number] PREPARE RED BLOOD CELLS (UNIT) TRANSFUSE RED BLOOD CELLS (UNIT) ABO/RH TYPE AND SCREEN CT Head w/o Contrast Final Result IMPRESSION: 1. No acute intracranial pathology. 2. Chronic small vessel ischemic disease and generalized cerebral volume loss. FLAKO ZUNIGA MD SYSTEM ID: [id number] Treatments provided: See MAR Family Comments: NA [...] was sent here. He was seen at [facility] yesterday but nothing was found to be [...] with mom and his aunt is his COMMISSIONER OF [employer]OCATION SERVICES. Past Medical History Medical History and Problem [...] -- 100 % -- -- 02/24/24 0947 /48 -- -- 78 17 -- -- -- [...] POS Antibody Screen Negative SPECIMEN EXPIRATION DATE [id number] PREPARE RED BLOOD CELLS (UNIT) Blood Component Type Red Blood Cells Product Code X3430J42 Unit Status Not used Unit Number [id number] CROSSMATCH Compatible CODING SYSTEM [id number] UNIT ABO/RH O+ UNIT TYPE ISBT 5100 PREPARE RED BLOOD CELLS (UNIT) Blood Component Type Red Blood Cells Product Code T6087Y84 Unit Status Transfused Unit Number [id number] CROSSMATCH Compatible CODING SYSTEM [id number] ISSUE DATE AND TIME [id number] UNIT ABO/RH O+ UNIT TYPE ISBT 5100 PREPARE RED BLOOD CELLS (UNIT) ABO/RH TYPE AND SCREEN Imaging CT Head w/o Contrast Final Result IMPRESSION: 1. No acute intracranial pathology. 2. Chronic small vessel ischemic disease and generalized cerebral volume loss. FLAKO ZUNIGA MD SYSTEM ID: [id number] EKG ECG taken at 1012, ECG read at 1020 Sinus rhythm with 1st degree AV block Otherwise normal ECG No change as compared to prior, dated 01/29/19. Rate 77 bpm. DC interval 210 ms. QRS duration 98 ms. [...] ED Course ED Course as of 02/24/24 1545 TueFebruary 24, 2024 0952 Obtained the patients history and performed initial exam 1004 Spoke to the patients mother about the patients baseline and medical history 1209 I spoke with MARY Slater with Dr. Perez regarding admission. Medical Decision Making / Diagnosis [facility] Diagnoses: None MIPS None MDM Herminio Victor is a 58 year old male with a complex past medical history pertinent for end-stage renal disease on dialysis, long-term anticoagulation use with Coumadin for prior history of DVT, intellectual disability, and long-term care needs assisted with his personal clothing laundry aide Aunt Thelma, who presents from dialysis due [...] Miscellaneous Notes * Pharmacy-Anticoagulation Service - John Rosado, [facility] - 02/26/2024 3:30 PM CDT Images from the original note were not included. 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 INR Goal= 2-3 Warfarin ENTEROSTOMAL THERAPY NURSE Regimen: 5 mg M-F Anticoagulation Dose History [...] lives with family, has 10 hours of COMMISSIONER OF [employer]ATION [employer] assist per day. Anticipate discharge home with family assisting. * Plan of Care - Adalgisa Amaya RN - 02/26/2024 2:37 PM CDT Problem: Adult Inpatient Plan of Care Goal: Absence of Hospital-Acquired Illness or Injury Intervention: Identify and Manage Fall Risk Recent Flowsheet Documentation Taken 02/26/2024 0831 by Adalgisa Amaya, LINDA Safety Promotion/Fall Prevention: activity supervised clutter free [...] Recent Flowsheet Documentation Taken 02/26/2024830 by Adalgisa Amyaa RN Safety Promotion/Fall Prevention: activity supervised clutter [...] promoted Goal: Optimal Comfort and Wellbeing 02/26/2024 0424 by Foreign Lozada RN Outcome: Progressing 02/26/2024 0423 by Foreign Lozada RN Outcome: Not Progressing Goal: Readiness for Transition of Care 02/26/2024 042 by Foreign Lozada RN Outcome: Progressing 02/26/2024 0423 by Foreign Lozada RN Outcome: Not Progressing Problem: Pain Acute Goal: Optimal Pain Control and Function 02/26/2024 0424 by Foreign Lozada RN Outcome: Progressing 02/26/2024 [...] active listening utilized simple statements used Taken 02/25/20242099 by Foreign Lozada RN Sensory Stimulation Regulation: quiet environment promoted Reorientation Measures: reorientation provided Communication Support Strategies: active listening utilized simple statements used Problem: Gastrointestinal Bleeding Goal: Optimal Coping with Acute Illness 02/26/2024423 by Foreign Lozada RN Outcome: Progressing 02/26/2024422 by Foreign Lozada RN Outcome: Not Progressing Intervention: Optimize Psychosocial Response Recent Flowsheet Documentation Taken 02/26/2024 0000 by Foreign Lozada RN Supportive Measures: self-care encouraged Taken 02/25/20242099 by Foreign Lozada RN Supportive Measures: self-care [...] Kidney Injury/Impairment Goal: Fluid and Electrolyte Balance 02/26/2024423 by Foreign Lozada RN Outcome: Progressing 02/26/2024422 by Foreign Lozada RN Outcome: Not Progressing Goal: Improved Oral Intake 02/26/2024423 by Foreign Lozada RN Outcome: Progressing [...] Foreign Lozada RN Medication Review/Management: medications reviewed Goal Outcome [...] Singh RN Safety Promotion/Fall Prevention: activity supervised Intervention: Prevent and Manage VTE (Venous Thromboembolism) Risk Recent Flowsheet Documentation Taken 02/25/2024 1700 by Ramila Singh RN VTE Prevention/Management: SCDs (sequential compression devices) off Taken 02/25/2024 1523 by Ramila Singh RN VTE Prevention/Management: SCDs (sequential compression devices) off Intervention: Prevent Infection Recent Flowsheet Documentation Taken 02/25/2024 1523 by Ramila Singh RN Infection Prevention: single patient room provided rest/sleep promoted Goal: Optimal Comfort and Wellbeing Outcome: Progressing Intervention: Monitor Pain and Promote Comfort Recent Flowsheet Documentation Taken 02/25/2024 1609 by Ramila Singh RN Pain Management Interventions: care clustered essential oils Goal: Readiness [...] Injury-Free Environment Recent Flowsheet Documentation Taken 02/25/2024 152 by Ramila Singh RN Safety Promotion/Fall Prevention: activity supervised Problem: Comorbidity Management Goal: Blood Glucose Levels Within Targeted Range Outcome: Progressing Intervention: Monitor and Manage Glycemia Recent Flowsheet Documentation Taken 02/25/2024 152 by Ramila Singh RN Medication Review/Management: medications [...] Promotion/Fall Prevention: safety round/check completed Taken 02/24/2024 2315 by Norma Mcmahon RN Safety Promotion/Fall Prevention: [...] shift note. Outcome: Progressing Flowsheets (Taken 02/24/2024 2253) Outcome Evaluation: Hgb 6.7 at 1800 recheck. [...] Fall Risk Recent Flowsheet Documentation Taken 02/24/2024 1658 by Ramila Singh, RN Safety Promotion/Fall Prevention: safety round/check completed room organization consistent room near nurse's station room door open assistive device/personal items within reach Taken 02/24/2024 1526 by Ramila Singh, RN Safety Promotion/Fall Prevention: supervised activity safety [...] Axel Wiley - 02/24/2024 3:11 PM CDT Belt Loop Cutter Admission Medication History Admission medication history is complete. The information provided in this note is only as accurateas the sources available at the time of the update. Information Source(s): Family member and CareEverywhere/SureScripts via phone Pertinent Information: Medication list obtained from sister (Thelma) who handles his medications. Changes made to ENTEROSTOMAL THERAPY NURSE medication list: Added: Calcium Acetate (snack) Deleted: [...] Completed By: Axel Wiley 02/24/2024 3:11 PM ENTEROSTOMAL THERAPY NURSE Med List Medication Sig Last Dose amLODIPine [...] by mouth Tuesday through Tuesday02/23/2024 at PM Electronically signed by Zuleyka Hopkins [facility] at 02/24/2024 7:30 PM CDT Associated attestation - Zuleyka Hopkins RPH - 02/24/2024 7:30 PM CDT Medication history completed by pharmacy order entry technician, reviewed by Zuleyka Hopkins, PharmD * Plan of Care - Lilliana Heranndez RN - 02/24/2024 2:50 PM CDT Goal [...] Flowsheet Documentation Taken 02/24/2024 1400 by Lilliana Hernandez, RN Safety Promotion/Fall Prevention: activity supervised nonskid [...] B Surface Antibody (02/26/2024 11:13 AM CDT) [facility] Hepatitis B Surface Antibody Reactive 02/26/2024 4:38 [...] Perez DO LAB - BLOOD ORDER NADIA [facility] LAB[facility]ATORY [facility] [place] [facility] Lab [address] [facility] [address] [facility], [address] [place] [address], [facility] * (ABNORMAL) INR (02/26/2024 9:49 AM CDT) INR 1.27(H) 0.85 - 1.15 02/26/2024 10:13 AM CDT RH LABORATORY Blood STRUCTURE OF RIGHT HAND / Unknown Venipuncture / Unknown 02/26/2024 9:49 AM CDT 02/26/2024 9:58 AM CDT Georgia Perez DO LAB - BLOOD ORDER NADIA LABORATORY [facility] Acute Care Lab [address] [facility] Lab (1st floor, no room number) [place] [address], [facility] * (ABNORMAL) Renal panel (02/26/2024 6:10 AM CDT) Sodium 128(L) 135 - 145 mmol/L 02/26/2024 6:49 AM CDT RH LABORATORY Comment:Reference intervals for [...] Perez DO LAB - BLOOD ORDER NADIA RH LABORATORY [facility] Acute Care Lab [address] [facility] Lab (1st floor, no room number) [place] [address] * (ABNORMAL) CBC with platelets (02/26/2024 [...] Perez DO LAB - BLOOD ORDER NADIA RH LABORATORY [facility] Acute Care Lab [address] Lab (1st floor, no room number) [place] [address] * (ABNORMAL) Ferritin (02/26/2024 6:10 AM CDT) Ferritin 1,463(H) 31 - 409 ng/mL 02/26/2024 12:37 PM CDT [facility]U LABORATORY Blood STRUCTURE OF RIGHT HAND / Unknown Venipuncture / Unknown 02/26/2024 6:10 AM CDT 02/26/2024 6:20 AM CDT Momo Hercules MD LAB - BLOOD ORDERABL ES [facility] [place] [facility] Lab [address] [facility], [address] [place] [address] * (ABNORMAL) Iron and iron binding capacity [...] Hercules MD LAB - BLOOD ORDERABL ES [facility] Acute Care Lab [address] [facility] Lab (1st floor, no room number) [place] [address], [facility] * CT Abdomen Pelvis w Contrast [...] EXAM: CT ABDOMEN PELVIS W CONTRAST LOCATION: [facility] DATE: 02/25/2024 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 Evaluate [...] lytic changes involving the superior aspect of [id number] body (series 3, image 137) with some [...] and/or further evaluation with lumbarspine MRI. Georgia Naa DO IMG CT ORDERABLES * UPPER GI ENDOSCOPY (02/25/2024 3:01 PM CDT) Upper GI Endoscopy [facility] Patient Name: Herminio Victor ? Procedure [...] ?Olympus Gastroscope, Model # [id number]-H190, Censitrac # ?[id number] was introduced through the mouth, and ?advanced [...] Note Initiated On: 02/25/2024 3:01 PM MRN: ?[id number] Procedure Date: ? 02/25/2024 3:01:34 PM Total [...] - BLOOD ORDERABL ES Performing Organization Address [facility]/ZIP Co de Phone Number [facility] Acute Care Lab [address] Lab (1st floor, no room number) [place] [address] * (ABNORMAL) INR (02/25/2024 9:28 AM CDT) INR 3.00(H) 0.85 - 1.15 02/25/2024 9:46 AM CDT RH LABORATORY Blood BLOOD SPECIMEN / Unknown Venipuncture / Unknown 02/25/2024 9:28 AM CDT 02/25/2024 9:32 AM CDT Georgia Perez DO LAB - BLOOD ORDER NADIA Performing Organization Address City/[facility]/ZIP Co de Phone Number [facility] Acute Care Lab [address] Lab (1st floor, no room number) [place] [address] * Hepatitis B surface antigen (02/25/2024 6:45 AM CDT) Hepatitis B Surface Antigen Nonreactive Nonreactive 02/25/2024 10:36 AM CDT [facility] LABORATORY Blood STRUCTURE OF LEFT UPPER LIMB / Unknown Venipuncture / Unknown 02/25/2024 6:45 AM CDT 02/25/2024 6:51 AM CDT Mann Brush DO LAB - BLOOD ORDERABL ES U LABORATORY [facility] [place] [facility] Lab [address] [facility], [address] [place] [address] * (ABNORMAL) Hemoglobin (02/25/2024 6:45 AM CDT) Hemoglobin 7.8(L) 13.3 - 17.7 g/dL 02/25/2024 7:29 AM CDT LABORATORY Blood STRUCTURE OF LEFT UPPER LIMB / Unknown Venipuncture / Unknown 02/25/2024 6:45 AM CDT 02/25/2024 6:51 AM CDT Gómez Blackwood PA-C LAB - BLOOD ORDERABL ES LABORATORY [facility] Acute Care Lab [address] Lab (1st floor, no room number) [place] [address] * (ABNORMAL) CBC with platelets (02/25/2024 6:45 AM CDT) WBC Count 6.6 4.0 - 11.0 10e3/uL 02/25/2024 7:29 AM CDT RH LABORATORY RBC Count 2.66(L) 4.40 - 5.90 [...] LAB - BLOOD ORDERABL ES RH LABORATORY [facility] Acute Care Lab [address] [facility] Lab (1st floor, no room number) [place] [address], [facility] * (ABNORMAL) Basic metabolic panel (02/25/2024 [...] Blackwood PA-C LAB - BLOOD ORDERABL ES [facility] Acute Care Lab [address] [facility] Lab (1st floor, no room number) [place] [address], [facility] * Transfuse red blood cells (unit) (02/25/2024 12:35 AM CDT) Mazin Srivastava MD BLOOD TRANSFUSION OR DERABLES * Transfuse red blood cells (unit), 1 Units (02/25/2024 12:35 AM CDT) Mazin Srivastava MD BLOOD TRANSFUSION OR DERABLES * Prepare red blood cells (unit) (02/24/2024 9:17 PM CDT) Blood Component Type Red Blood Cells RH BLOOD BANK Product Code [id number] RH BLOO D BANK Unit Status Transfused RH BLOO D BANK Unit Number [id number] RH B LOOD BANK CROSSMATCH Compatible RH BLOOD BANK CODING SYSTEM [id number] RH BLO OD BANK ISSUE DATE AND TIME [id number] RH BLOOD BANK UNIT ABO/RH O+ RH BLOOD BANK UNIT TYPE ISBT 5100 RH BL OOD BANK 02/24/2024 9:17 PM CDT Mazin Srivastava MD BLOOD BANK PRODUCT O RDERABLES Performing Organization Address [facility] Co de Phone Number BLOOD BANK [address] [place] [address] * Transfuse red blood cells (unit) (02/24/2024 9:11 PM CDT) Mazin Srivastava MD BLOOD TRANSFUSION OR DERABLES * Transfuse red blood cells (unit), 1 Units (02/24/2024 9:11 PM CDT) Mazin Srivastava MD BLOOD TRANSFUSION OR DERABLES * Prepare red blood cells (unit) (02/24/2024 6:19 PM CDT) Blood Component Type Red Blood Cells RH BLOOD BANK Product Code [id number] RH BLOO D BANK Unit Status Transfused RH BLOO D BANK Unit Number [id number] RH B LOOD BANK CROSSMATCH Compatible RH BLOOD BANK CODING SYSTEM [id number] RH BLO OD BANK ISSUE DATE AND TIME [id number] RH BLOOD BANK UNIT ABO/RH O+ RH BLOOD BANK UNIT TYPE ISBT 5100 RH BL OOD BANK 02/24/2024 6:19 PM CDT Jae Noel MD BLOOD BANK PRODUCT O RDERABLES Performing Organization Address [facility] Co de Phone Number BLOOD BANK [address] [place] [address] * (ABNORMAL) Hemoglobin (02/24/2024 5:51 PM CDT) Hemoglobin 6.7(LL) 13.3 - 17.7 g/dL 02/24/2024 6:14 PM CDT RH LABORATORY Blood STRUCTURE OF LEFT UPPER LIMB / Unknown Venipuncture / Unknown 02/24/2024 5:51 PM CDT 02/24/2024 6:00 PM CDT Gómez Blackwood PA-C LAB - BLOOD ORDERABL ES Performing Organization Address City/[facility]/ZIP Co de Phone Number [facility] Acute Care Lab [address] [facility] Lab (1st floor, no room number) [place] [address] * Transfuse red blood cells (unit) (02/24/2024 2:35 PM CDT) Jae Noel MD BLOOD TRANSFUSION OR DERABLES * Transfuse red blood cells (unit), 1 Units (02/24/2024 2:35 PM CDT) Jae Noel MD BLOOD TRANSFUSION OR DERABLES * Prepare red blood cells (unit) (02/24/2024 11:35 AM CDT) Blood Component Type Red Blood Cells RH BLOOD BANK Product Code [id number] RH BLOO D BANK Unit Status Transfused RH BLOO D BANK Unit Number [id number] RH B LOOD BANK CROSSMATCH Compatible RH BLOOD BANK CODING SYSTEM [id number] RH BLO OD BANK ISSUE DATE AND TIME [id number] RH BLOOD BANK UNIT ABO/RH O+ RH BLOOD BANK UNIT TYPE ISBT 5100 RH BL OOD BANK 02/24/2024 11:3 5 AM CDT Jae Noel MD BLOOD BANK PRODUCT O RDERABLES BLOOD BANK [address] [place] [address] * (ABNORMAL) Occult blood stool (02/24/2024 11:31 AM CDT) Occult Blood Positive(A ) Negative JOJO 02/24/2024 11:40 AM CDT LABORATORY Stool RECTAL CONTENTS / Unknown Non-blood Collection / Unknown 02/24/2024 11:31 AM CDT 02/24/2024 11:38 AM CDT Jae Noel MD LAB - STOOLS ORDERAB LES LABORATORY [facility] Acute Care [facility] [address] [facility] ([facility], no room number) [place] [address] * CT Head w/o Contrast (02/24/2024 10:42 AM CDT) Anatomical Region Laterality Modality Head, SUBRAD CT NEURO, SUBRA D CT NEURO, UMP CT NEURO, RAD CT Computed Tomography Impressions 02/24/2024 11:11 AM CDT IMPRESSION: 1. No acute intracranial pathology. 2. Chronic small vessel ischemic disease and generalized cerebral volume loss. FLAKO ZUNIGA MD SYSTEM ID: ??[id number] Narrative 02/24/2024 11:11 AM CDT EXAM: CT HEAD W/O CONTRAST ??02/24/2024 10:42 AM HISTORY: ??Altered mental status, cocnern for ICH, on coumadin ?? COMPARISON: ??No prior similar studies TECHNIQUE: Using multidetector thin collimation helical acquisition technique, axial, coronal and sagittal CT images from the skull base to the vertex were obtained without intravenous contrast. Rd Lab Technician (topogram) image(s) also obtained and reviewed. Dose [...] the vertex were obtained without intravenous contrast. Rd Lab Technician (topogram) image(s) also obtained and reviewed. Dose [...] volume loss. FLAKO ZUNIGA MD SYSTEM ID: [id number] Jae Noel MD IMG CT ORDERABLES * [...] LAB - BEAKER POCT RH LABORATORY POC [facility] Acute Care Lab [address] Lab (1st floor, no room number) [place] [address], [facility] * EKG 12-lead, tracing only (02/24/2024 10:12 AM CDT) Systolic Blood Pressure mmHg RADIOLOGY RESULTS Diastolic Blood Pressure mmHg RADIOLOGY RESULTS Ventricular Rate 77 BPM RAD IOLOGY RESULTS Atrial Rate 77 BPM RADIOLOG Y RESULTS DC Interval 210 ms RADIOLOG Y RESULTS QRS Duration 98 ms RADIOLO GY RESULTS QT 382 ms RADIOLOGY RESULTS QTc 432 ms RADIOLOGY RESULTS P [place] 49 degrees RADIOLOGY RESULTS R AXIS 6 degrees RADIOLOGY RESULTS T [place] 36 degrees RADIOLOGY RESULTS Interpretation ECG Sinus rhythm with 1st degree A-V block Otherwise normal ECG When compared with ECG of 16-DEC-2015 14:48, Criteria for Septal infarct are no longer Present Unconfirmed report - interpretation of this ECG is computer generated - see medical record for final interpretation Confirmed by - EMERGENCY ROOM, PHYSICIAN ([id number]), senior editor YISSEL VELASQUEZ ([id number]) on 02/24/2024 10:54:14 AM RADIOLOGY RESULTS 02/24/2024 10:1 2 AM CDT 02/24/2024 10:54 AM CDT Jae Noel MD ECG ORDERABLES Performing Organization Address City/[facility]/ZIP Co de Phone Number RADIOLOGY RESULTS * Adult Type and Screen (02/24/2024 10:07 AM CDT) ABO/RH(D) O POS 02/24/2024 10:08 AM CDT RH BLOOD BANK Antibody Screen Negative Negative 02/24/2024 10:08 AM CDT RH BLOOD BANK SPECIMEN EXPIRATION DATE [id number] 02/24/2024 10:08 AM CDT RH BLOOD BANK Blood STRUCTURE OF RIGHT UPPER LIMB / Unknown Venipuncture / Unknown 02/24/2024 10:07 AM CDT 02/24/2024 10:12 AM CDT Jae Noel MD LAB - BLOOD BANK SHANNON T ORDER Performing Organization Address City/[facility] Co de Phone Number RH BLOOD BANK [address] [place] [address], [facility] * Ammonia (02/24/2024 10:06 AM CDT) Ammonia 26 16 - 60 umol/L 02/24/2024 10:32 AM CDT RH LABORATORY Blood STRUCTURE OF RIGHT UPPER LIMB / Unknown Venipuncture / Unknown 02/24/2024 10:06 AM CDT 02/24/2024 10:13 AM CDT Jae Noel MD LAB - BLOOD ORDERABL ES RH LABORATORY [facility] Acute Care Lab [address] Lab (1st floor, no room number) [place] [address], [facility] * (ABNORMAL) CBC with platelets and [...] Noel MD LAB - BLOOD ORDERABL ES [facility] Lab [address] Lab (1st floor, no room number) [address] * (ABNORMAL) INR (02/24/2024 9:58 AM CDT) INR 2.46(H) 0.85 - 1.15 02/24/2024 10:26 AM CDT RH LABORATORY Blood STRUCTURE OF RIGHT UPPER LIMB / Unknown Venipuncture / Unknown 02/24/2024 9:58 AM CDT 02/24/2024 10:11 AM CDT Jae Noel MD LAB - BLOOD ORDERABL ES [facility] [address] Lab (1st floor, no room number) [address] * (ABNORMAL) Comprehensive metabolic panel (02/24/2024 9:58 [...] - BLOOD ORDERABL ES Performing Organization Address City/[facility]/ZIP Co de Phone Number [facility] Lab [address] Lab (1st floor, no room number) [address] * Extra Purple Top Tube (02/24/2024 9:58 AM CDT) Hold Specimen [facility] 02/24/2024 11:16 AM CDT RH LABORATORY Blood STRUCTURE OF RIGHT UPPER LIMB / Unknown Venipuncture / Unknown 02/24/2024 9:58 AM CDT 02/24/2024 10:11 AM CDT Jae Noel MD LAB - BLOOD ORDERABL ES [facility] Care Lab [address] Lab (1st floor, no room number) [address] * Extra Green Top (Lares Heparin) Tube (02/24/2024 9:58 AM CDT) Hold Specimen [facility] 02/24/2024 11:16 AM CDT RH LABORATORY Blood STRUCTURE OF RIGHT UPPER LIMB / Unknown Venipuncture / Unknown 02/24/2024 9:58 AM CDT 02/24/2024 10:11 AM CDT Jae Noel MD LAB - BLOOD ORDERABL ES [facility] Acute Care Lab [address] Lab (1st floor, no room number) [place] [address], [facility] * Extra Blue Top Tube (02/24/2024 9:58 AM CDT) Hold Specimen C 02/24/2024 11:16 AM CDT LABORATORY Blood STRUCTURE OF RIGHT UPPER LIMB / Unknown Venipuncture / Unknown 02/24/2024 9:58 AM CDT 02/24/2024 10:11 AM CDT Jae Noel MD LAB - BLOOD ORDERABL ES Performing Organization Address City/[facility]/ZIP Co de Phone Number [facility] Acute Care Lab [address] Lab (1st floor, no room number) [place] [address], [facility] documented in this encounter Visit Diagnoses Diagnosis Anemia, unspecified type ESRD on dialysis (H) End stage renal disease Altered mental status, unspecified altered mental status type Gastrointestinal hemorrhage, unspecified gastrointestinal hemorrhage type ESRD on dialysis (H) End stage renal disease Altered mental status, unspecified altered mental status type Gastrointestinal hemorrhage, unspecified gastrointestinal hemorrhage type Anemia, unspecified type documented in this encounter Administered Medications Inactive [...] 20% (HURRICAINE/TOPEX) 20 % spray 0.5 mL 0.5 mL (1 spray), Mouth/Throat, ONCE PRN, sore throat, Starting on 02/25/24 at 1421, For 1 dose, [place] throat with 1 spray 5 minutes prior to procedure., Intra-procedure $Given 02/25/2024 3:18 PM CDT [address] Scan Flush Intravenous, 100 mL, ONCE, On 02/25/24 at 1700, For 1 dose, This entry is for use by Radiology to intermittently used as a flush in patients receiving a CT scan. $Given 02/25/2024 4:50 PM CDT 64 mLs fentaNYL (PF) (SUBLIMAZE) injection 50-100 mcg 50-100 mcg, Intravenous, EVERY 5 MIN PRN, severe pain, If inadequate response may repeat every 3 min PRN severe pain; when verbally requested by provider., Starting on 02/25/24 at 1421, Doses can be exceeded under direct oversight of patient by physician., Intra-procedure $Given 02/25/2024 3:16 PM CDT 50 mcg iopamidol (ISOVUE-370) solution 500 mL 500 mL, Intravenous, ONCE, On 02/25/24 at 1700, For 1 dose $Given 02/25/2024 4:49 PM CDT 95 mLs midazolam (VERSED) injection 0.5-2 mg 0.5-2 mg, Intravenous, EVERY 4 MIN PRN, sedation, If inadequate response may repeat every 4 minutes PRN sedation until desired response; when verbally requested by provider., Starting on 02/25/24 at 1421, Doses can be exceeded under direct oversight of patient by physician. This drug may cause significant respiratory depression. Monitor respiratory status and vital signs carefully for 1 hour after each dose., Intra-procedure $Given 02/25/2024 3:16 PM CDT 1 mg pantoprazole (PROTONIX) IV push injection 40 mg 40 mg, Intravenous, 2 TIMES DAILY, First dose (after last modification) on Tue02/24/24 at 2100, Irritant. $Given 02/26/2024 8:31 AM CDT 40 mg $Given 02/25/2024 9:07 PM CDT 40 mg $Given 02/25/2024 12:12 PM CDT 40 mg pantoprazole (PROTONIX) IV push injection 80 mg 80 mg, Intravenous, ONCE, On Tue02/24/24 at 1210, For 1 dose, Irritant. $Given 02/24/2024 12:19 PM CDT 80 mg phytonadione (AQUA-MEPHYTON) 2 mg in sodium chloride 0.9 % 50 mL intermittent infusion 2 mg, Intravenous, Administer over 30 Minutes, at 100 mL/hr, ONCE, On Tue02/25/24 at 1030, For 1 dose $Given 02/25/2024 12:20 PM CDT 2 mg 100 mL/hr senna-docusate (SENOKOT-S/PERICOLACE) 8.6-50 MG per tablet 1 [...] order nurse to discontinue the duplicate order. sodium chloride 0.9% BOLUS 250 mL Intravenous, 250 mL, ONCE, at 250 mL/hr, Administer over 1 Hours, On Tue02/24/24 at 1005, For 1 dose $New Bag 02/24/2024 10:08 AM CDT 250 mLs 250 mL/hr sodium chloride 0.9% BOLUS 250 mL Intravenous, 250 mL, ONCE IN DIALYSIS/CRRT, On Tue02/24/24 at 1400, For 1 dose, For patient prime during dialysis, Dialysis $New Bag 02/25/2024 9:31 AM CDT 250 mLs sodium chloride 0.9% BOLUS 300 mL Hemodialysis Machine, 300 mL, ONCE, On Tue02/24/24 at 1400, For 1 dose, For Dialyzer Prime. (In Dialyzer), Dialysis $New Bag 02/25/2024 9:32 AM CDT 300 mLs warfarin ANTICOAGULANT (COUMADIN) tablet 5 mg 5 [...] Flush (COMPLETED) Intravenous, 100 mL, ONCE, On 02/25/24 at 1700, For 1 dose, This entry is for use by Radiology to intermittently used as a flush in patients receiving a CT scan. 1650 ($Given - Provider: William Corrales) iopamidol (ISOVUE-370) solution 500 mL (COMPLETED) 500 mL, Intravenous, ONCE, On 02/25/24 at 1700, For 1 dose 1649 [...] dose, Irritant. 1219 ($Given - Provider: Yasemin Colunga RN) phytonadione (AQUA-MEPHYTON) 2 mg in sodium chloride 0.9 % 50 mL intermittent infusion (COMPLETED) 2 mg, Intravenous, Administer over 30 Minutes, at 100 mL/hr, ONCE, On 02/25/24 at 1030, For 1 dose 1220 ($Given [...] Pal Franklin RN)2107 ($Given - Provider: Foreign Lozada, RN) 0531 (Not Given - Provider: Foreign Lozada RN - Reason: Patient sleeping)1400 (Canceled Entry - Provider: Orders Generic Provider - Comment: Automatically canceled at discontinue of medication order) sodium chloride 0.9% BOLUS 250 mL (COMPLETED) Intravenous, 250 mL, ONCE, at 250 mL/hr, Administer over 1 Hours, On Tue02/24/24 at 1005, For 1 dose 1008 ($New Bag - Provider: Yasemin Colunga, LINDA)1131 (Stopped - Provider: Yasemin Colunga, RN) sodium chloride 0.9% BOLUS 250 mL (COMPLETED) Intravenous, 250 mL, ONCE IN DIALYSIS/CRRT, On Tue02/24/24 at 1400, For 1 dose, For patient prime during dialysis, Dialysis 1614 (Canceled Entry - Provider: Ramila Singh RN - Comment: Dilaysis tomorrow) 0931 ($New Bag - Provider: Molly Simms, LINDA) sodium chloride 0.9% BOLUS 300 mL (COMPLETED) Hemodialysis Machine, 300 mL, ONCE, On Tue02/24/24 at 1400, For 1 dose, For Dialyzer Prime. (In Dialyzer), Dialysis 1614 (Canceled Entry - Provider: Ramila Singh RN - Comment: Dilaysis tomorrow) 0932 ($New Bag - Provider: Molly Simms, LINDA) warfarin ANTICOAGULANT (COUMADIN) tablet 5 mg 5 [...] on 02/25/24 at 1421, For 1 dose, [place] throat with 1 spray 5 minutes prior [...] stools. documented in this encounter Care Teams Haul Truck Driver Relationship Specialty Start Date End Date Preet Huff PCP - General 06/24/11 documented as of this encounter
--- OUTSIDE RECORDS SUMMARY | 2024-02-29 09:47 | XMS_ITS ---
Author Organization [place] Address [address] [place] [address] Care Team Providers Care Food And Beverage Server Name Role Phone Preet Huff Primary Care Provider [phone] Transitional Care Management Status:Enrolled (Active) Start date:02/27/2024 Enrollment date:02/27/2024 Continued Care and Services Coordination
--- OUTSIDE RECORDS SUMMARY | 2024-02-29 09:47 | XMS_ITS | Encounter Summary ---
Author Organization [place] Address [address] [facility] [place] [address] Care Team Providers Care Pit Hoist Operator Name Role Phone Preet Huff Primary Care Provider [phone] Jaxon Saravia MD Unavailable [phone] Encounter Details Date Type Department Care Team (Late st Contact Info) Description 10/20/2011 Hospital PHYS STANDARD [address] [phone] Wojciech Holman MD [facility] [address] [id number] ESRD (end stage renal disease) on dialysis (H); Hyperkalemia Social History Tobacco Use Types Packs/Day Years Used Date Smoking Tobacco: Never Smokeless Tobacco: Never Alcohol Use Standard Drinks/Week Comments No 0 (1 standard drink = 0.6 oz pur e alcohol) Sex and Gender Information Value Date Recorded Sex Assigned at Not on file Gender Identity Male 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
--- OUTSIDE RECORDS SUMMARY | 2024-02-29 09:47 | XMS_ITS | Encounter Summary ---
Author Organization [place] Address [address] [place] [address] Care Team Providers Care Educational Administrator Name Role Phone Preet Huff Primary Care Provider Jaxon Saravia MD Unavailable [phone] Encounter Details Date Type Department Care Team (Late st Contact Info) Description 12/21/2012 Orders Only [facility] Interventional Radiology 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
--- OUTSIDE RECORDS SUMMARY | 2024-02-29 09:47 | XMS_ITS | Encounter Summary ---
Author Organization [place] Address [address] [facility] [place] [address] Care Team Providers Care Water Reclamation Systems Operator Name Role Phone RefugioPreet Primary Care Provider [phone] Encounter Details Date Type Department Care Team (Late st Contact Info) Description 02/08/2022 External Order Results [facility] [address] [place] [address] Outside, Provider Social History Tobacco Use Types Packs/Day Years Used Date Smoking Tobacco: Never Smokeless Tobacco: Never Alcohol Use Standard Drinks/Week Comments No 0 (1 standard drink = 0.6 oz pur e alcohol) PHQ-2 Answer Date Recorded PHQ-2 Score 0 10/18/2018 Sex and Gender Information Value Date Recorded Sex Assigned at Not on file Gender Identity Male 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 Provider Outside LABORATORY HANSYaneth PFT NON-INTERFACED (ONBASE SCANS) documented in this encounter Visit Diagnoses Not on filedocumented in this encounter Care Teams Water Reclamation Systems Operator Relationship Specialty Start Date End Date Preet Huff PCP - General 06/24/11 documented as of this encounter
--- OUTSIDE RECORDS SUMMARY | 2024-02-29 09:47 | XMS_ITS | Encounter Summary ---
Author Organization [place] Address [address] [facility] [place] [address] Care Team Providers Care Systems Support Engineer Name Role Phone Preet Huff Primary Care Provider [phone] Jaxon Saravia MD Unavailable [phone] Encounter Details Date Type Department Care Team (Late st Contact Info) Description 05/07/[address] [facility] Interventional Radiology 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
== END 2024-02-23 19:13 | disposition home or self-care (01) ==
LOC: AMB 02-29 09:43
PROVIDERS: PCP Internal Medicine Nephrology; Visit Provider Emergency Medicine Emergency Medical Services
DX: R41.82 Altered mental status, unspecified (principal)
CPT/HCPCS: A0425; A0427

== ENCOUNTER 2024-02-23 19:46 | Emergency (ER) | payer MEDICARE, MEDICAID, SELFPAY ==
[2024-02-23] VITALS (14 sets, daily range): BP systolic 113–124; BP diastolic 60–61; PULSE 76–92; RESP 16; TEMP 36.2; O2SAT 100; BMI 25.0
--- NOTE | 2024-02-23 20:36 | CT_ITS ---
Patient: JULIO CESAR SANDHU Facility:?[facility] Patient ID:?[id number] Site Patient ID:?[id number]. Site :?1965 Study:?CT-Head W-02/23/2024 9:07:58 PM Ordering Physician:?DR. GASCA Final Report: INDICATION: Altered mental status. TECHNIQUE: CT head without contrast. COMPARISON: None. FINDINGS: CSF spaces: Mild diffuse parenchymal volume loss. Brain parenchyma and extra-axial spaces: Mild chronic white matter ischemic disease. The yip-white differentiation is normal. No sign of mass, hemorrhage, or midline shift. No extra-axial fluid collection. Skull base and calvarium: The visualized paranasal sinuses and mastoid air cells demonstrate no acute or significant findings. The visualized orbits are grossly unremarkable. No skull fractures. IMPRESSION: No acute intracranial abnormality on this noncontrast study. Please note that all CT scans at this facility use dose modulation, iterative reconstruction, and/or weight-based dosing when appropriate to reduce radiation dose to as low as reasonably achievable. Dictated by Aashish Mason MD @ 02/23/2024 9:16:59 PM Signed by:?Aashish Mason MD @02/23/2024 9:16:59 PM (Electronic Signature)
--- NOTE | 2024-02-23 20:39 | ED_ITS ---
HPI - Altered Mental Status General Chief Complaint: Altered Mental Status Stated Complaint: altered mental status Time Seen by Provider: 02/23/24 19:53 History of Present Illness HPI narrative: This 58-year-old male is a patient arrives by ambulance with the patient's aunt reporting that his mental status has been different over the past couple days. The patient himself states that he thinks nothing is wrong. He is alert and oriented and able to ambulate normally. He does have a previous CVA with some slurred speech and left lip drooping. His responses are a bit delayed at his normal baseline. The patient does not have any report of pain, injury, or recent illness. He is a dialysis patient and completed normal dialysis yesterday. He does take Coumadin. Related Data Home Medications Medication Instructions Recorded Confirmed calcium acetate(phosphat bind) 667 667 mg PO 3XD 02/23/24 02/23/24 mg capsule lisinopril 20 mg tablet mg PO 02/23/24 metoprolol tartrate 100 mg tablet mg PO 02/23/24 vitamin B complex and vitamin C 1 cap PO DAILY 02/23/24 02/23/24 no.20-folic acid 1 mg capsule (Virt-Caps) warfarin 5 mg tablet 5 mg PO DAILY 02/23/24 02/23/24 Allergies Allergy/AdvReac Type Severity Reaction Status Date / Time No Known Drug Allergies Allergy Verified 02/23/24 20:22 Review of Systems Status of ROS: Reports: 10 or more systems reviewed and unremarkable except as noted in History and below Narrative: Constitutional: No fevers, no weight gain or loss. Eyes: No discharge. No vision changes. HENT: No congestion, no sore throat, no ear pain. Cardiovascular: No chest pain, no palpitations. Respiratory: No shortness of breath, no wheezes, no cough. Gastrointestinal: No abdominal pain, no vomiting, no diarrhea. Genitourinary: No dysuria, no hematuria. Musculoskeletal: Normal range of motion. Skin: No rashes, no pruritis. Neurological: No dizziness, weakness, sensory change, speech change. Endo/Heme/Allergies: No bruising or bleeding. No polydipsia. Pysch: no suicidality, no anxiety, no insomnia. All other systems reviewed and are negative. [facility] Medical History (Updated 02/23/24 @ 23:11 by Joni Ley MD) CVA (cerebral vascular accident) ?I63.9 - Cerebral infarction, unspecified (ICD-10) Dialysis patient ?Z99.2 - Dependence on renal dialysis (ICD-10) Social History Smoking Status: Never smoker How often do you have a drink containing alcohol: never AUDIT-C Alcohol total score: 0 Non-prescribed substance use: denies use Exam Narrative: Exam Narrative: Constitutional: Well-developed, well-nourished, no acute distress. HEENT: Normocephalic, atraumatic. Neck: Normal range of motion. Nontender. Supple. Heart: Regular. Systolic ejection murmur. Normal rate. Intact distal pulses. Lungs: Clear to auscultation. No chest discomfort. No wheezes, rhonchi, or rales. Abdomen: Normal bowel sounds. Nontender. No rebound tenderness. Genitalia: Deferred. Back: No midline tenderness. Normal range of motion. Extremities: Normal range of motion. No injury. Skin: Intact. No rash. Warm. No erythema or pallor. Neurologic: No altered sensation. No weakness. Alert and oriented. He has a slight droop on the left side of his face from a previous stroke. Tongue is midline. [id number] is normal. No pronator drift. Legal Manager strength is equal bilaterally. Able to raise each leg from the bed. Psychiatric: No suicidality. No anxiety or depression. No insomnia. Nursing notes and vitals signs are reviewed. Const: Vital Signs, click to edit/add: Vital Signs - 24 hr 02/23/24 20:05 02/23/24 20:33 02/23/24 20:45 Temperature 97.1 F L Pulse Rate 79 80 Respiratory Rate 16 Blood Pressure [Ri ght Upper Arm] 124/61 Pulse Oximetry 100 100 100 Oxygen Delivery Me thod Room Air 02/23/24 21:05 02/23/24 21:15 02/23/24 21:31 Temperature Pulse Rate 83 76 79 Respiratory Rate Blood Pressure [Ri ght Upper Arm] Pulse Oximetry 100 100 Oxygen Delivery Me thod 02/23/24 21:45 02/23/24 22:00 02/23/24 22:15 Temperature Pulse Rate 80 80 87 Respiratory Rate Blood Pressure [Ri ght Upper Arm] Pulse Oximetry 100 100 100 Oxygen Delivery Me thod 02/23/24 22:30 02/23/24 22:45 Temperature Pulse Rate 88 92 Respiratory Rate Blood Pressure [Ri ght Upper Arm] Pulse Oximetry 100 100 Oxygen Delivery Me thod Course Vital Signs Vital signs: Initial Vital Signs Temperature 97.1 F L 02/23/24 20:05 Temperature Source Temporal Artery Scan 02/23/24 20:05 Respiratory Rate 16 02/23/24 20:05 Blood Pressure 124/61 02/23/24 20:05 Blood Pressure Mean 82 02/23/24 20:05 Blood Pressure Position Semi-Fowlers 02/23/24 20:05 Pulse Oximetry 100 02/23/24 20:05 Oxygen Delivery Method Room Air 02/23/24 20:05 Vital Signs Temperature 97.1 F L 02/23/24 20:05 Respiratory Rate 16 02/23/24 20:05 Blood Pressure 124/61 02/23/24 20:05 Pulse Oximetry 100 02/23/24 20:05 Oxygen Delivery Method Room Air 02/23/24 20:05 Temperature 97.1 F L 02/23/24 20:05 Pulse Rate 92 02/23/24 22:45 Respiratory Rate 16 02/23/24 20:05 Blood Pressure 124/61 02/23/24 20:05 Pulse Oximetry 100 02/23/24 22:45 Oxygen Delivery Method Room Air 02/23/24 20:05 MDM - Altered Mental Status MDM Narrative Medical decision making narrative: This patient comes in with a report from his onto that she thought he had some change in his mental status. He does have a history of stroke with residual symptoms. Attempts were made several times to contact the patient's aunt but there was no weight a contact her as the phone number was disconnected that was provided. I did obtain access to previous records and see that his hemoglobin was 5.2 a couple years ago. Today returns at 7.1. He does have renal failure on dialysis so this is not surprising that he would have an associated anemia. His background does include a past medical history including cognitive dysfunction. The patient repeatedly states that he feels normal and has no complaints. CT scan of his head is obtained which shows no acute findings. Zeenat montgomery is okay to be discharged home. He will need to resume dialysis tomorrow morning. Lab Data Labs: Lab Results 02/23/24 Range/Units 20:50 WBC 7.77 (4.50-11.00) K/uL RBC 2.43 L (4.30-5.90) m/uL Hgb 7.1 L* (13.5-17.5) gm/dL Hct 23.2 L (37.0-53.0) % MCV 96 (80-100) fL MCH 29 (26-34) pg MCHC 31 L (32-36) gm/dL RDW Coeff of Zeenat 17.4 H (11.5-15.5) % Plt Count 157 (140-440) K/uL Neut % (Auto) 84.1 H (42.0-72.0) % Lymph % (Auto) 6.2 L (20-44) % Johnston % (Auto) 7.6 (0.0-11.0) % Eos % (Auto) 1.7 (0.0-7.0) % Baso % (Auto) 0.1 (0.0-3.0) % Neut # (Auto) 6.50 (1.7-7.0) K/uL Lymph # (Auto) 0.50 L (0.90-2.90) K/uL Johnston # (Auto) 0.60 (0.00-0.90) K/UL Eos # (Auto) 0.13 (0.00-0.50) K/uL Baso # (Auto) 0.01 (0.00-0.30) K/uL Abs Immat Gran (auto) 0.02 (0.00-0.30) K/uL Imm/Tot Granulo (auto) 0.3 % INR 2.31 H (0.91-1.10) Sodium 131 L (135-149) mmol/L Potassium 4.8 (3.6-5.1) mmol/L Chloride 90 L (96-114) mmol/L Carbon Dioxide 28 (20-32) mmol/L Anion Gap 13 (7-15) mEq/L BUN 60 H (7-30) mg/dL Creatinine 7.8 H (0.5-1.5) mg/dL Estimated Creat Clear 12.04 Estimated GFR 7 ml/min Glucose 136 H (60-115) mg/dL Calcium 9.2 (8.4-10.6) mg/dL Total Bilirubin 0.7 (0.1-1.5) mg/dL Direct Bilirubin 0.4 (0.0-0.5) mg/dL AST 31 (12-35) U/L ALT 29 (4-50) U/L Alkaline Phosphatase 86 (40-150) U/L Ammonia < 9.0 L (13.1-30.0) umol/L C-Reactive Protein 0.5 (0.5-1.0) mg/dL Total Protein 7.5 (6.0-8.3) g/dL Albumin 4.1 (3.3-5.0) g/dL POC Troponin I 0.01 (0.01-0.04) ng/ml Imaging Data CT scan - head: Radiologist's impression: No acute intracranial abnormality on this noncontrast study. ECG Data Attestation: I personally reviewed and interpreted this ECG as follows: Interpretation: Normal sinus rhythm. Rate is 77 beats per minute. There are no ST or T-wave abnormalities. Discharge Plan Discharge Clinical Impression: Feared condition not demonstrated, Anemia, Dialysis patient Patient Disposition: Home, Self-Care Condition: Stable Additional Instructions: Continue current plans. Resume dialysis as scheduled tomorrow. Follow up with MD otherwise as needed. Prescriptions: No Action metoprolol tartrate 100 mg tablet PO lisinopril 20 mg tablet PO warfarin 5 mg tablet 5 mg PO DAILY Virt-Caps 1 mg capsule 1 cap PO DAILY calcium acetate(phosphat bind) 667 mg capsule 667 mg PO 3XD Follow Up/Referrals: Williams Holman MD [Primary Care Provider] - Stand Alone Forms: [employer] Info Instructions
[2024-02-23 21:03] LABS: Troponin, Point-of-Care* 0.01 ng/ml (0.01-0.04)
[2024-02-23 21:11] LABS: Albumin* 4.1 g/dL (3.3-5.0); Chloride* 90 mmol/L (96-114)
[2024-02-23 21:12] LABS: Potassium* 4.8 mmol/L (3.6-5.1); Sodium* 131 mmol/L (135-149)
[2024-02-23 21:13] LABS: INR 2.31 (0.91-1.10); Prothrombin Time 27.1 Seconds
[2024-02-23 21:14] LABS: Alkaline Phosphatase* 86 U/L (40-150); Anion Gap 13 mEq/L (7-15); Aspartate Amino Transferase* 31 U/L (12-35); Bilirubin Direct* 0.4 mg/dL (0.0-0.5); Bilirubin Total* 0.7 mg/dL (0.1-1.5); Blood Urea Nitrogen* 60 mg/dL (7-30); Carbon Dioxide* 28 mmol/L (20-32); Creatinine* 7.8 mg/dL (0.5-1.5); Est. Creatinine Clearance* 12.04; Estimated Glomerular Filt Rate 7 ml/min; Total Protein* 7.5 g/dL (6.0-8.3)
[2024-02-23 21:15] LABS: Alanine Aminotransferase* 29 U/L (4-50); Calcium* 9.2 mg/dL (8.4-10.6); Glucose* 136 mg/dL (60-115)
[2024-02-23 21:16] LABS: Ammonia* < 9.0 umol/L (13.1-30.0)
[2024-02-23 21:17] LABS: C Reactive Protein* 0.5 mg/dL (0.5-1.0)
[2024-02-23 21:20] LABS: Basophils Absolute Auto 0.01 K/uL (0.00-0.30); Basophils Percent Auto 0.1 % (0.0-3.0); Eosinophils Absolute Auto 0.13 K/uL (0.00-0.50); Eosinophils Percent Auto 1.7 % (0.0-7.0); Hematocrit 23.2 % (37.0-53.0); Immature Granulocytes Abs Auto 0.02 K/uL (0.00-0.30); Immature Granulocytes Pct Auto 0.3 %; Lymphocytes Percent Auto 6.2 % (20-44); Mean Corpuscular HGB Conc 31 gm/dL (32-36); Mean Corpuscular Hemoglobin 29 pg (26-34); Mean Corpuscular Volume 96 fL (80-100); Monocytes Percent Auto 7.6 % (0.0-11.0); Neutrophils Percent Auto 84.1 % (42.0-72.0); Platelet Count* 157 K/uL (140-440); RDW Coefficient of Variation % 17.4 % (11.5-15.5); Red Blood Count 2.43 m/uL (4.30-5.90); White Blood Count* 7.77 K/uL (4.50-11.00)
[2024-02-23 21:23] LABS: Hemoglobin* 7.1 gm/dL (13.5-17.5)
[2024-02-23 21:24] LABS: Slide Review Reflex No
--- OUTSIDE RECORDS SUMMARY | 2024-02-23 22:20 | XMS_ITS | Encounter Summary ---
Author Name Unknown Organization [facility] Terri reyes Address [address] [place] [address] Phone Care Team Providers Care Lead Generation Specialist Name Role Phone Preet Huff MD Primary Care Provider [phone] Reason for Visit * Reason Comments Med Refill Encounter Details Date Type Department Care Team (Late st Contact Info) Description 03/23/2021 Refill [facility] [address] [facility] [address] [place], [place] [id number] María Elena Styles PA [address] [facility] [address] [facility] [address] [facility] [address] [place] [address] Social History Tobacco Use Types Packs/Day Years Used Date Smoking Tobacco: Never Assessed Sex and Gender Information Value Date Recorded Sex Assigned at Not on file Gender Identity Not on file Sexual Orientation Not on file documented as of this encounter Miscellaneous Notes * Telephone Encounter - MARY Cuadra - 03/23/2021 1:44 PM CDT This was filled a month ago with 11 refills to this same pharmacy. He should not need a new Rx at this time documented in this encounter Plan of Treatment Not on file documented as of this encounter Visit Diagnoses Not on filedocumented in this encounter Care Teams Lead Generation Specialist Relationship Specialty Start Date End Date Preet Huff MD [address] [place] [phone] PCP - General 10/31/19 documented as of this encounter
--- OUTSIDE RECORDS SUMMARY | 2024-02-23 22:20 | XMS_ITS | Clinical Summary ---
Author Name Unknown Organization [employer] [facility] [employer] Address [place], [place] [address] Care Team Providers Care Physician In Private Practice Name Role Phone Preet Huff MD Primary Care Provider Allergies Active Allergy Reactions Criticality Noted Date Comments Aspirin GI Bleeding Dihydroxyaluminum Aminoacetate Nausea Only Medium 04/2011 GI bleeding Medications Medication Sig Dispensed Refills Start Date End Date Status Diabetic ShoeIndications:Con trolled type 2 diabetes mellitus with complication, without long-term current use of insulin (HC) One pair of diabetic shoes. Diagnosis: diabetes mellitus with foot callous and bony deformity. 1 Units 11/03/2017 Active wheelchairIndicatio ns:Unsteady gait Wheelchair: Standard with leg rests: Swing away Length of need: 12 months 1 Device 12/20/2017 Active WalkerIndications:U nsteady gait Rolling Walker for home use. 1 Device 12/20/2017 Active hospital bedIndications:Foot ulcer, left, with unspecified severity (HC) Hospital bed with rails: Electric, Length of need 99 months. Diagnosis: foot ulcer with need to elevated foot of bed. 1 unit 01/31/2018 Active bisacodyl (DULCOLAX) 5 mg tabletIndications:C hronic constipation Take 2 tablets by mouth once daily. Tuesday, Tuesday, Tuesday and Tuesday. 0 02/02/2018 Active CPAPIndications:Obs tructive sleep apnea CPAP machine for home use at pressure: 8 cm/H2O , Heated humidifier x 1, Humidifier chamber x 1, 1 unit 11 07/27/2018 Active warfarin (COUMADIN) 5 mg tabletIndications:A nticoagulation management encounter Take 1 tablet by mouth once daily. 90 tablet 3 11/16/2018 Active cholecalciferol (D3-2000) 2,000 unit capsuleIndications: Vitamin D deficiency Take 1 capsule by mouth once daily. 90 capsule 3 11/16/2018 Active durable medical equipment (DME)Indications:Ga it instability Walker with seat 1 Each 12/01/2018 Active ammonium lactate 12% topical (LACHYDRIN) 12 % lotionIndications:D ry skin,Type 2 diabetes mellitus with pressure callus (HC) Apply topically to affected area(s) 2 times daily. 396 g 5 12/29/2021 Active Calcium Acetate (PHOS-LO) 667 mg capsuleIndications: ESRD (end stage renal disease) (HC) TAKE TWO CAPSULES BY MOUTH THREE TIMES A DAY WITH MEALS AND ONE CAPSULE WITH SNACKS DIRECTED 720 Capsule 1 03/08/2022 Active amLODIPine (NORVASC) 10 mg tabletIndications:H TN (hypertension) TAKE ONE TABLET BY MOUTH TWICE DAILY ONLY ON TUESDAY, TUESDAY, TUESDAY, AND TUESDAY (NON-DIALYSIS DAYS) DIRECTED 128 Tablet 3 06/23/2022 Active lisinopriL (PRINIVIL; ZESTRIL) 20 mg tabletIndications:H ypertension, unspecified type Take 2 Tablets (40 mg) by mouth once daily. 180 Tablet 1 05/19/2023 Active sennosides (SENNA) 8.6 mg tabletIndications:C hronic constipation Take 2 Tablets (17.2 mg) by mouth two times daily. 360 Tablet 3 05/19/2023 Active b complex-vitamin c-folic acid 1 mg (Triphrocaps) 1 mg capsuleIndications: CKD (chronic kidney disease), stage IV (HC) Take 1 Capsule by mouth once daily. 90 Capsule 3 09/29/2023 Active Bisacodyl powd Mix 10 mg in liquid then take by mouth. Take 10 mg by mouth four times a week (Takes 2 x 5mg tablet = 10mg dose) Tuesday, Tuesday, Tuesday, and Tuesday Active medical supply, miscellaneous (BLOOD PRESSURE CUFF MISC) Monitor BP at home as instructed 07/29/2023 Active DOXERCALCIFEROL IV Inject 1 mcg intravenous. 1 mcg intravenously dialysis. Active folic acid/vit B complex and C (RENAL MULTIVITAMIN FORMULA ORAL) Take 1 Capsule by mouth once daily. Active calcitrioL (ROCALTROL) 0.25 mcg capsule Take 0.25 mcg by mouth once daily. Active epoetin mauricio (EPOGEN;PROCRIT) 20,000 unit/mL injection 14,300 units. 14,300 UNITS by IV Push route dialysis. Active omeprazole (PRILOSEC) 20 mg Delayed-Release capsule Take 20 mg by mouth once daily before a meal. Active atorvastatin (LIPITOR) 20 mg tabletIndications:M ixed hyperlipidemia Take 1 Tablet (20 mg) by mouth once daily. 90 Tablet 3 11/08/2023 Active Diaper,Brief, Adult,DisposableInd ications:Incontinen ce for home use 119 Each 12 11/19/2023 Active metoprolol tartrate (LOPRESSOR) 100 mg tabletIndications:H ypertension, unspecified type TAKE 2 TABLETS BY MOUTH ON TUESDAY, TUESDAY, TUESDAY AND TUESDAY. 32 Tablet 2 12/16/2023 Active Active Problems Problem Noted Date Diagnosed Date Dependence on renal dialysis 11/08/2023 Chronic constipation 06/23/2022 Impaired cognition 09/05/2020 Type 2 diabetes mellitus wit h kidney complication, without long-term current use of insulin 09/30/2016 Subclinical hyperthyroidism 05/24/2015 Vitamin D deficiency 05/21/2015 Mixed hyperlipidemia 07/25/2012 DVT of upper extremity (deep vein thrombosis) terminal gauger (current) use of anticoagulants 2010 Secondary hyperparathyroidism (of renal origin) 11/18/2010 ESRD (end stage renal disease) 11/17/2010 Anemia in chronic kidney disease(285.21) 009 Syncope 03/13/2009 Obesity, unspecified 11/15/2007 Proteinuria 09/29/2007 Legal blindness, as defined in [place] 01/06/2007 Unspecified essential hypertension 01/06/2007 SHIRLEY on CPAP Overview: CPAP Resolved Problems Problem Noted Date Diagnosed Date Resolved Date Hypertensive urgency 07/13/2015 020 Open thigh wound 06/30/2014 08/13/2019 SHIRLEY (obstructive sleep apnea) 11/18/2010 07/13/2015 Sleep Apnea 02/21/2008 AHI 18, retest 11/04/10 1 11/09/2010 Sleep Apnea 02/21/2008 AHI 18, retest 11/04/10 1 08/13/2019 ANEMIA 01/12/2010 09/29/2011 Anemia in chronic kidney disease(285.21) 06/27/2009 08/07/2009 Anemia in chronic kidney disease(285.21) 06/27/2009 08/07/2009 Anemia in chronic kidney disease(285.21) 04/18/2009 08/07/2009 Type 2 diabetes mellitus wit h ophthalmic complication, without long-term current use of insulin 03/14/2009 02/02/2018 Hyperkalemia 03/13/2009 07/13/2015 Dehydration 03/13/2009 07/13/2015 Orthostasis 03/13/2009 11/08/2023 Anemia in chronic kidney disease(285.21) 02/07/2009 08/07/2009 Anemia in chronic kidney disease(285.21) 10/04/2008 03/13/2009 CKD (chronic kidney disease), stage IV 07/12/2008 09/30/2016 Sleep Apnea 02/21/2008 AHI 18 05/21/2008 11/09/2010 Mixed hyperlipidemia 04/02/2008 015 Background diabetic retinopathy(362.01) 11/15/2007 09/30/2016 Anemia, unspecified 01/06/2007 07/13/20 15 Encounters Date Type Department Care Team Description 01/22/2024 9:00 AM CDT Orders Only [facility] [address] [place] [address] Lab 12/15/2023 Refill [facility] [address] [place] [address] Preet Huff MD Refill Request (Metoprolol Tartrate) from Last 3 Months Immunizations Name Administration Dates Next Due COVID-19 vaccine (Moderna 100mcg/0.5mL) PF, MDV 11/28/2020,10/31/2020 COVID-19 vaccine (Pfizer-Bio NTech 30mcg/0.3mL) 12YO+ BIVALENT PF, MDV 06/23/2022 Hepatitis B (Adult) 09/06/2022, 4,09/25/2013,04/24,03/23/2011,01/28/2011,12/26/2010 ,11/12/2010,07/14/2010,03/11/2010,02/2010,01/12/2010,10/21/2009 11/21/2009 Influenza A (H1N1), Inactiva suzan (Age >=3 Years) 10/21/2009 Influenza Virus, Unspecified 06/23/2022,07/20/20 16,07/27/2014 Influenza, IIV3 (Age >=3 years) 07/13/20 17,06/27/2013,07/18/2012,07/14,07/09/2009,09/06/2007 Influenza, IIV4 06/23/2022,,07/11/2020,08/01,07/13/2018,07/17/2015 Influenza, IIV4 (=>6mos) MDV 07/13/2017 Pneumococcal Poly,23-Valent (Pneumovax) 10/09/2008 Pneumococcal conj 13-Valent (Prevnar 13) 01/17/2019 Pneumococcal, Unspecified 12/02/2015,10/12/2010 Tdap 10/21/2009 Tuberculin (PPD) 12/08/2022, 2,12/15/2020,11/21,10/12/2018,11/05/2017,10/21/2016 ,10/21/2015,11/02/2014,02/14/2014,11/11,10/21/2009 Family History Medical History Relation Name Comments Diabetes Maternal Aunt 1 Hypertension Maternal Aunt 2 Cancer-colon Maternal Grandmother Hypertension Mother Cancer-prostate Neg. 1 Heart Disease Neg. 2 Anesthesia Problem No Family History Relation Name Status Comments Maternal Aunt 1 Maternal Aunt 2 Maternal Grandmother Mother Neg. 1 Neg. 2 Social History Tobacco Use Types Packs/Day Years Used Date Smoking Tobacco: Never Passive Smoke Exposure: Yes Smokeless Tobacco: Never Tobacco Cessation:Counseling Given: No Comments:people smoke in house Alcohol Use Standard Drinks/Week Comments No 0 (1 standard drink = 0.6 oz pur e alcohol) PHQ-2 Answer Date Recorded PHQ-2 Score 0 05/22/2020 Social Connections Answer Date Recorded Frequency of Communication with Friends and Fami ly Not on file 06/24/2023 Financial Resource Strain Answer Date R ecorded Difficulty of Paying Living Expenses 3 06/23/2022 Difficulty of Paying Living Expenses Not on file 06/23/2022 Food Insecurity Answer Date Recorded Worried About Running Out of Food in the Last Ye ar 1 06/23/2022 Transportation Needs Answer Date Record ed Lack of Transportation (Medical) 1 06/23/2022 Housing Stability Answer Date Recorded Unable to Pay for Housing in the Last Year 1 06/23/2022 Sex and Gender Information Value Date Recorded Sex Assigned at Not on file Gender Identity Not on file Sexual Orientation Not on file Obstetrics History Last Filed Vital Signs Vital Sign Reading Time Taken Comments Blood Pressure 123/76 11/08/2023 2:26 PM CLINICAL LEADER Pulse 62 11/08/2023 2:26 PM CLINICAL LEADER Temperature 36.9 ??C (98.4 ??F) 05/22/2020 1:36 PM CD T Respiratory Rate 18 06/07/2018 11:0 8 AM CDT Oxygen Saturation 99% 07/15/2022 1:59 PM CDT Inhaled Oxygen Concentration - - Weight 83.4 kg (183 lb 12.8 oz) 11/08/2023 2:26 PM CLINICAL LEADER Height 172.3 cm (5' 7.84) 11/08/2023 2:26 PM CS T Body Mass Index 28.08 11/08/2023 2:26 PM CLINICAL LEADER Plan of Treatment Upcoming Encounters Date Type Department Care Team (Late st Contact Info) Description 02/28/2024 2:00 PM CDT Office Visit [facility] [address] [place] [address] Lizandro Singh MD [address] [place] [address] Health Maintenance Due Date Last Done Comments Zoster (shingles) series for age 50+ (1 of 2) 2013 Pneumococcal series for age 6-64 (3 of 3 - PPSV23 or PCV20) 03/14/2019 01/17/2019, 12/02/2015, 10/12/2010, Additional history exists Tetanus booster 10/21/2019 10/21/2009 Depression screening for age 12+ 08/13/2020 08/13/2019, 03/15/2017, 02/06/2016 COVID-19 vaccine series ( season) 2023 06/23/2022, 01/13/2022, 08/17/2021, Additional history exists Colonoscopy through age 75 09/24/2023 09/24/2013, Influenza for age 50-64 06/10/2024 06/23/20, 06/23/2022, 08/05/2021, Additional history exists BMI (ht and wt on same day) for age 18+ 11/08/2024 11/08/2023, 06/23/2022, 03/17/2021, Additional history exists Lipids for age 45-75 11/08/2028 11/08/2023, 11/18/2021, 09/05/2020, Additional history exists HIV for age 15-65 Completed 03/04/2009 Hepatitis C screening for ag e 18-79 Completed 03/04/2009 Tdap Completed 10/21/2009 Medical Devices Implanted Type Area Roof Foreman Device Identifier Shelf Expiration Date Model / Serial / Lot Cath Peritoneal Cvd 62cm - [id number] Implanted:Qty: 1 on 10/31/2009 at [facility] N/A: Abdomen STIVEN 05/10/2014 [id number] # / / [id number] Procedures Procedure Name Priority Date/Time Associated Diagnosis Comments LIPID PANEL W REFLEX MEASURED LDL Routine 11/08/2023 3:05 PM CLINICAL LEADER Mixed hyperlipidemia COLONOSCOPY SCREENING Routine 09/24/2013 12:00 AM CLINICAL LEADER Colon cancer screening ANTI HIV 1/2 Timed 03/04/2009 10:05 AM CDT Pre-Transplant Evaluation for End Stage Renal Disease ANTI HCV Timed 03/04/2009 10:05 AM CDT Pre-Transplant Evaluation for End Stage Renal Disease from Last 3 Months or Most Recently Relevant to Health Maintenance Results * (ABNORMAL) LIPID PANEL W REFLEX MEASURED LDL (11/08/2023 3:05 PM CLINICAL LEADER) CHOLESTEROL,TOTAL 90(L) 100 - 199 mg/dL 11/09/2023 10:41 AM CLINICAL LEADER [facility] Comment: Cholesterol, Total Reference Ranges Desirable <200 mg/dL Borderline 200-239 mg/dL High >=240 mg/dL TRIGLYCERIDES 104 <150 mg/dL 11/09/2023 10:41 AM [facility] HDL CHOLESTEROL 30(L) >40 mg/dL 10:41 AM [facility] NON-HDL CHOLESTEROL 60 <145 mg/dl 11/09/2023 10:41 AM [facility] CHOL/HDL RATIO 3.00 <4.50 11/09/2023 10:41 AM [facility] LDL CHOLESTEROL 39 <=130 mg/dL 11/09/2023 10:41 AM [facility] VLDL CHOLESTEROL 21 <=30 mg/dL 11/09/2023 10:41 AM [facility] PROVIDER ORDERED STATUS RANDOM 11/09/2023 10:41 AM [facility] Blood BLOOD SPECIMEN / Unknown Butterfly / Unknown 11/08/2023 3:05 PM CLINICAL LEADER 11/08/2023 3:08 PM CLINICAL LEADER Preet Huff MD CHEMISTRY Performing Organization Address City/[facility]/ZIP Co de Phone Number [facility] [address] [place], [place] [id number], * COLONOSCOPY SCREENING (09/24/2013 12:00 AM CLINICAL LEADER) Narrative 09/24/2013 12:00 AM CLINICAL LEADER Procedure Note Scanner - 09/24/2013 12:00 AM CST Preet Huff MD GI PROCEDURE O RD * ANTI HCV (03/04/2009 10:05 AM CDT) ANTI HCV Non-reacti ve [facility] Blood specimen (specimen) BLOOD SPECIMEN / Unknown 03/04/2009 10:05 AM CDT 03/04/2009 9:57 AM CDT Alfredo Juarez MD SEND OUTS [facility] INTERNAL ZIP [id number] [address] * ANTI HIV 1/2 (03/04/2009 10:05 AM CDT) ANTI HIV 1/2 Non-reacti ve [facility] Blood specimen (specimen) BLOOD SPECIMEN / Unknown 03/04/2009 10:05 AM CDT 03/04/2009 9:57 AM CDT Alfredo Juarez MD [facility] INTERNAL ZIP [address] [address] from Last 3 Months or Most Recently Relevant to Health Maintenance Advance Directives Documents on File Type Date Recorded Patient Braille Transcriber Expl anation Power of Livestock [place] 09/04/2014 12:00 AM 07/2009 * Full Code (Latest Code Status on File) Date Activated Date Inactivated Comments 07/13/2015 12:39 PM 07/14/2015 9:58 PM Question Answer Comments Code Status Discussion: Discussed * Full Code Date Activated Date Inactivated Comments 11/18/2010 3:29 PM 11/18/2010 7:15 PM * Full Code Date Activated Date Inactivated Comments 11/18/2010 2:39 PM 11/18/2010 3:29 PM * Full Code Date Activated Date Inactivated Comments 10/31/2009 6:56 AM 10/31/2009 12:55 PM * Full Code Date Activated Date Inactivated Comments 03/13/2009 5:57 PM 03/16/2009 5:32 PM Care Teams Physician In Private Practice Relationship Specialty Start Date End Date Preet Huff MD [address] [place] [address] PCP - General 12/02/06
--- OUTSIDE RECORDS SUMMARY | 2024-02-23 22:20 | XMS_ITS | Encounter Summary ---
Author Name Unknown Organization [facility] Address [address] [place] [address] Phone Care Team Providers Care Underground Conduit Installer Name Role Phone Preet Huff MD Primary Care Provider [phone] Reason for Visit * Reason Comments Med Refill Encounter Details Date Type Department Care Team (Late st Contact Info) Description 02/20/2024 Refill [facility] [address] [facility] [address] [place], [place] [id number] María Elena Styles PA [address] [place] [address] Social History Tobacco Use Types Packs/Day Years Used Date Smoking Tobacco: Never Assessed Sex and Gender Information Value Date Recorded Sex Assigned at Not on file Gender Identity Not on file Sexual Orientation Not on file documented as of this encounter Plan of Treatment Not on file documented as of this encounter Visit Diagnoses Not on filedocumented in this encounter Care Teams Underground Conduit Installer Relationship Specialty Start Date End Date Preet Huff MD [address] [place] [phone] PCP - General 10/31/19 documented as of this encounter
--- OUTSIDE RECORDS SUMMARY | 2024-02-23 22:20 | XMS_ITS | Clinical Summary ---
Author Name Unknown Organization [facility] Address [address] [place] [address] Phone Care Team Providers Care Digital Imager Name Role Phone Preet Huff MD Primary Care Provider [phone] Medications Medication Sig Dispensed Refills Start Date End Date Status cholecalciferol (VITAMIN D-3) 1000 units tablet 1 tab qd 04/02/2015 Active B Complex Vitamins (VITAMIN B COMPLEX) tablet 1 tab po daily 12/08/2012 Activ e bisacodyl (DULCOLAX) 5 MG EC tablet 2 tabs po bid 04/02/2015 Active B Kpbqpux-O-Fjjeu Acid (RENAL) 1 MG capsule 1 cap po q day hs 12/08/2012 Active calcium acetate (PHOSLO) 667 MG capsule Take 1 capsule (667 mg total) by mouth in the morning and 1 capsule (667 mg total) at noon and 1 capsule (667 mg total) in the evening. Take with meals. 270 capsule 3 03/01/2023 Active amLODIPine (NORVASC) 5 MG tablet Take 1 tablet (5 mg total) by mouth 1 (one) time each day on non dialysis days 90 tablet 1 07/29/2023 Active Blood Pressure Monitoring device Monitor BP at home as instructed 1 Device 07/29/2023 Active lisinopril (PRINIVIL) 20 MG tablet Take 1 tablet (20 mg total) by mouth every morning Take after dialysis on dialysis days 90 tablet 3 11/09/2023 Active metoprolol tartrate (LOPRESSOR) 100 MG tablet Take 1 tablet (100 mg total) by mouth in the morning and 1 tablet (100 mg total) in the evening. on non-dialysis days only.. 180 tablet 1 02/08/2024 05/01/202 5 Active warfarin (COUMADIN) 5 MG tablet TAKE ONE TABLET BY MOUTH EVERY DAY DIRECTED 90 tablet 2 02/22/2024 Active metoprolol tartrate (LOPRESSOR) 100 MG tablet 1 tab BID on SuMWF 3 10/22/2016 4 Discontinue d(Reorder) warfarin (COUMADIN) 5 MG tablet TAKE ONE TABLET BY MOUTH EVERY DAY DIRECTED 90 tablet 3 01/21/2023 4 Discontinue d(Reorder) Active Problems Problem Noted Date Diagnosed Date Disorders of phosphorus metabolism 04/15/2015 Overview: Converted unresolved ICD9, potential mismatch. Disorder of calcium metabolism 04/15/2015 Overview: Converted unresolved ICD9, potential mismatch. Essential (primary) hypertension 04/10/2015 Vitamin D deficiency 12/11/2012 Secondary hyperparathyroidism of renal origin End stage renal disease 11/21/2012 Anemia in chronic kidney disease 11/21/2012 Encounters Date Type Department Care Team Description 02/20/2024 Refill [facility] [address] [place] [address] María Elena Styles PA 02/08/2024 Orders Only [facility] [address] [place] [address] María Elena Styles PA from Last 3 Months Social History Tobacco Use Types Packs/Day Years Used Date Smoking Tobacco: Never Assessed Sex and Gender Information Value Date Recorded Sex Assigned at Not on file Gender Identity Not on file Sexual Orientation Not on file Last Filed Vital Signs Vital Sign Reading Time Taken Comments Blood Pressure 164/61 08/08/2019 12:01 AM CDT Pulse - - Temperature - - Respiratory Rate - - Oxygen Saturation - - Inhaled Oxygen Concentration - - Weight 85.3 kg (188 lb 1.6 oz) 08/08/2019 12:01 AM CDT Height 175.3 cm (5' 9) 08/08/2019 12:01 AM CDT Body Mass Index 27.78 08/08/2019 12:01 AM CDT Plan of Treatment Health Maintenance Due Date Last Done Comments Pneumococcal PPSV23 Highest Risk Adult (1 of 3 - PCV13 ) 1982 Influenza Vaccine (Season Ended) 2024 Care Teams Digital Imager Relationship Specialty Start Date End Date Preet Huff MD [address] [place] [phone] PCP - General 10/31/19
--- OUTSIDE RECORDS SUMMARY | 2024-02-23 22:20 | XMS_ITS | Encounter Summary ---
Author Name Unknown Organization [facility] Address [address] [place] [address] Phone Care Team Providers Care Director Business Development Name Role Phone Preet Huff MD Primary Care Provider [phone] Reason for Visit * Reason Comments Med Refill Encounter Details Date Type Department Care Team (Late st Contact Info) Description 02/12/2021 Refill [facility] [address] [facility] [address] [place], [place] [address] María Elena Styles PA [address] [place] [address] Social History Tobacco Use Types Packs/Day Years Used Date Smoking Tobacco: Never Assessed Sex and Gender Information Value Date Recorded Sex Assigned at Not on file Gender Identity Not on file Sexual Orientation Not on file documented as of this encounter Plan of Treatment Not on file documented as of this encounter Visit Diagnoses Not on filedocumented in this encounter Care Teams Director Business Development Relationship Specialty Start Date End Date Preet Huff MD [address] [place] [phone] PCP - General 10/31/19 documented as of this encounter
--- OUTSIDE RECORDS SUMMARY | 2024-02-23 22:20 | XMS_ITS | Encounter Summary ---
Author Name Unknown Organization [facility] Address [address] [place] [address] Phone Care Team Providers Care Jet Worker Name Role Phone Preet Huff MD Primary Care Provider [phone] Encounter Details Date Type Department Care Team (Late st Contact Info) Description 02/08/2024 Orders Only [facility] [address] [place], [place] [phone] María Elena Styles PA [address] [place] [address] Social History Tobacco Use Types Packs/Day Years Used Date Smoking Tobacco: Never Assessed Sex and Gender Information Value Date Recorded Sex Assigned at Not on file Gender Identity Not on file Sexual Orientation Not on file documented as of this encounter Plan of Treatment Not on file documented as of this encounter Visit Diagnoses Not on filedocumented in this encounter Care Teams Jet Worker Relationship Specialty Start Date End Date Preet Huff MD [address] [place] [phone] PCP - General 10/31/19 documented as of this encounter
--- OUTSIDE RECORDS SUMMARY | 2024-02-23 22:21 | XMS_ITS | Clinical Summary ---
Author Name Unknown Organization [place] Address [facility] [address] [place] [address] Care Team Providers Care Licensed Massage Therapist Name Role Phone Preet Huff Hans Primary Care Provider [phone] Allergies Active Allergy Reactions Criticality Noted Date Comments Dihydroxyaluminum Aminoacetate GI Disturbance Medium 1 GI bleeding Medications Medication Sig Dispensed Refills Start Date End Date Status Cholecalciferol (VITAMIN D3 PO) Take 2,000 Units by mouth every evening Active LISINOPRIL PO Take 40 mg by mouth daily (Takes 2 x 20mg tablet = 40mg ) Active Calcium Acetate, Phos Binder, (CALCIUM ACETATE PO) Take 1,334 mg by mouth 3 times daily (with meals) Takes with meals (2 x 667mg tablet) Active AMLODIPINE BESYLATE PO Take 10 mg by mouth four times a week On Non dialysis days which is MWFSun Active METOPROLOL TARTRATE PO Take 100 mg by mouth 2 times daily Take on MWFSun, on Non-dialysis days Active BISACODYL PO Take 10 mg by mouth four times a week (Takes 2 x 5mg tablet = 10mg dose) Tuesday, Tuesday, Tuesday, and Tuesday Active oxyCODONE IR (ROXICODONE) 5 MG tabletIndications:Po st-op pain Take 1-2 tablets (5-10 mg) by mouth every 4 hours as needed for other (pain control or improvement in physical function. Hold dose for analgesic side effects.) 30 tablet 12/19/2017 Active warfarin (COUMADIN) 4 MG tabletIndications:Pr oblem with dialysis access, subsequent encounter Take 1 tablet (4 mg) by mouth daily 30 tablet 1 12/19/2017 Active atorvastatin (LIPITOR) 20 MG tabletIndications:Mi xed hyperlipidemia Take 1 tablet (20 mg) by mouth every evening 30 tablet 3 12/19/2017 Active oxyCODONE IR (ROXICODONE) 5 MG tabletIndications:Ul cer of heel and midfoot, unspecified laterality, with fat layer exposed (H) Take 1 tablet (5 mg) by mouth daily maximum 6 tablet(s) per day 30 tablet 12/29/2017 Active lactulose (CHRONULAC) 10 GM/15ML solution Take 15-60 mLs by mouth daily as needed for constipation Active omeprazole (PRILOSEC) [address] capsule Take 20 mg by mouth daily Active multivitamin RENAL (MULTIVITAMIN RENAL) 1 MG capsule Take 1 capsule by mouth daily Active Active Problems Problem Noted Date Diagnosed Date Foot ulcer 01/23/2018 Foot ulcer, left 12/16/2017 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) 12/16/2017 Postoperative observation 03/05/2016 History of staph septicemia 12/20/2015 Fever and chills 12/16/2015 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 Problem with dialysis access (H24) 08/14/2015 Fever 08/09/2015 ESRD (end stage renal disease) 06/04/2014 Post-op pain 06/20/2013 Clotted renal dialysis arteriovenous graft (H24) 06/19/2013 Clotted renal dialysis AV graft (H24) 06/19/2013 End stage renal disease 08/10/2012 Fistula 08/05/2012 Resolved Problems Problem Noted Date Diagnosed Date Resolved Date Clotted dialysis access (H24) 08/03/2012 08/10/2012 ESRD (end stage renal disease) on dialysis 05/03/2012 08/01/2012 Hypertension 08/01/2012 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 Immunizations Name Administration Dates Next Due COVID-19 Monovalent 18+ (Moderna) 01/13/2022,05/2021 HepB, Unspecified 11/07/2013, 3,04/24/2013,2010,10/21/2009 Influenza (H1N1) 10/21/2009 Influenza Vaccine >6 months,quad, PF 08/05/2021, 07/13/2017 Pneumo Conj 13-V (2010&after) 01/17/2019 Pneumococcal, Unspecified 10/12/2010 Tdap (Adult) Unspecified Formulation 10/21/2009 Social History Tobacco Use Types Packs/Day Years Used Date Smoking Tobacco: Never Smokeless Tobacco: Never Alcohol Use Standard Drinks/Week Comments No 0 (1 standard drink = 0.6 oz pur e alcohol) PHQ-2 Answer Date Recorded PHQ-2 Score 0 10/18/2018 Adolescent Education Answer Date Record ed Getting School Help Needed Not on file 07/01 Sex and Gender Information Value Date Recorded Sex Assigned at Not on file Gender Identity Male 12/05/2017 10:39 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 User may not have seen previous data. Body Mass Index 33.13 10/02/2019 8:26 AM BARBED WIRE MACHINE OPERATOR Plan of Treatment Health Maintenance Due Date Last Done Comments ADVANCE CARE PLANNING 1965 ANNUAL REVIEW OF HM ORDERS 1963 CT COLONOGRAPHY 1963 FLEX SIG 1963 PARATHYROID 1963 sDNA (Cologuard) 1963 HIV SCREENING 1978 MEDICARE ANNUAL WELLNESS VISIT 1981 ZOSTER IMMUNIZATION (1 of 2) 2013 HEPATITIS B IMMUNIZATION (9 of 9 - Risk Dialysis 4-dose series) 11/07/2014 11/07/2013, 11/07/2013, 09/25/2013, Additional history exists FIT 06/14/2015 06/14/2014 BMP 04/25/2018 01/24/2018, 12/08, 12/16/2017, Additional history exists HEMOGLOBIN 07/26/2018 01/24/2018, 12/08, 12/18/2017, Additional history exists LIPID 12/07/2018 12/07/2017 Pneumococcal Vaccine: Pediatrics (0 to 5 Years) and At-Risk Patients (6 to 64 Years) (3 of 3 - PPSV23 or PCV20) 03/14/2019 01/17/2019, 12/02/2015, 10/12/2010, Additional history exists DTAP/TDAP/TD IMMUNIZATION (2 - Td or Tdap) 10/21/2019 10/21/2009, 10/21/2009 GLUCOSE 01/25/2022 01/25/2019, 01/08, 01/26/2018, Additional history exists RSV VACCINE ( & 60+) (1 - 1-dose 60+ series) 2023 COVID-19 Vaccine (2022- season) 2023 01/13/2022, 08/17/2021, 11/28/2020, Additional history exists COLONOSCOPY 09/24/2023 09/24/2013 COLORECTAL CANCER SCREENING 09/24/2023 PHQ-2 (once per calendar year) 2023 01/15/2016 INFLUENZA VACCINE (Season Ended) 2024 08/05/2021, 07/11/2020, 08/01/2019, Additional history exists PHOSPHORUS Completed 08/09/2015, 05/2014, 06/15/2014, Additional history exists ALK PHOS Completed 12/16/2015 HEPATITIS C SCREENING Completed 01/04/2022 HPV IMMUNIZATION Aged Out No longer e ligible based on patient's age to complete this topic IPV IMMUNIZATION Aged Out No longer e ligible based on patient's age to complete this topic MENINGITIS IMMUNIZATION Aged Out No l onger eligible based on patient's age to complete this topic RSV MONOCLONAL ANTIBODY Aged Out No l onger eligible based on patient's age to complete this topic Medical Devices Implanted Type Area Electric Locomotive Crane Operator Device Identifier Shelf Expiration Date Model / Serial / Lot Graft Patch Vasc Xenosure Biologic 0.8x08cm 0.8p8 Implanted:Qty: 1 on 12/16/2017 by Jaxon Saravia MD at [facility] Bone/Tis rocco/Biol ogic Left: Iliac/Fem orals LEMAITRE VASCULAR IN 06/06/2023 0.8P8 / / [id number] Graft Pericardium 8x0.8cm Vascu-Guard Implanted:Qty: 1 on 10/20/2011 at [facility] Right: Arm [employer] 01/16/2016 [id number] / / [id number] Femoral Popliteal Artery Implanted:Qty: 1 on 05/03/2012 by Jaxon Saravia MD at [facility] Right: Groin 12/07/2021 [id number] / [id number] / Description:CADAVER FEMORAL ARTERY RINSED IN A AND B SOLUTION: A SOLUTION LOT #[id number] EXPIRATION DATE 01/09/2014 B SOLUTION LOT #[id number] EXPIRATION DATE 11/15/2013 Graft Propaten Taper [id number] [id number] Implanted:Qty: 1 on 08/09/2012 by Jaxon Saravia MD at [facility] Right: Leg 10/24/2015 [id number] / / [id number] Graft Propaten Taper [id number] [id number] Implanted:Qty: 1 on 06/20/2013 by Jaxon Saravia MD at [facility] Left: Groin [employer] 02/07/2017 [id number] / / [id number] Graft Pericardium 8x0.8cm Vascu-Guard Implanted:Qty: 1 on 05/08/2014 by Jaxon Saravia MD at [facility] Left: Leg [employer] 11/26/2018 [id number] / PN# [id number] / [id number] Procol Vascular Bioprosthesis Implanted:Qty: 1 on 07/02/2015 by Jaxon Saravia MD at [facility] Left: Groin 12/16/2018 [id number] / [id number] / Procol Vascular Bioprosthesis Implanted:Qty: 1 on 08/13/2015 by Jaxon Saravia MD at [facility] Left: Groin 12/16/2018 [id number] -[id number] / [id number] / Graft Vasc Bioprosthesis Procol 3eed45yd [id number] Implanted:Qty: 1 on 03/05/2016 by Jaxon Saravia MD at [facility] Left: Leg L[employer]ASC[employer] IN 02/03/2019 [id number] -[id number] / [id number] / Procedures Procedure Name Priority Date/Time Associated Diagnosis Comments HEPATITIS C (HIM EXTERNAL RESULT) Routine 01/04/2022 12:00 PM CDT GLUCOSE BY METER Routine 01/25/2019 1:11 PM CDT ESRD (end stage renal disease) on dialysis (H) CBC WITH PLATELETS Routine 01/24/2018 6: 55 AM CDT BASIC METABOLIC PANEL Routine 01/24/2018 6:55 AM CDT LIPID PROFILE STAT 12/07/2017 12:34 PM BARBED WIRE MACHINE OPERATOR Atherosclerosis 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 (H) COMPREHENSIVE METABOLIC PANEL STAT 12/16/2015 3:01 PM BARBED WIRE MACHINE OPERATOR RENAL PANEL Routine 08/09/2015 12:50 PM CDT OCCULT BLOOD STOOL Routine 06/14/2014 7: 10 PM CDT COLONOSCOPY - HIM SCAN Routine 09/24/2013 from Last 3 Months or Most Recently Relevant to Health Maintenance Results * Hepatitis C (HIM External Result) (01/04/2022 12:00 PM CDT) Hep C HIM See Scanned Document EXTERNAL LAB Comment:Nonreactive 01/04/2022 12:0 0 PM CDT Narrative EXTERNAL LAB - 01/04/2022 12:00 PM CDT LAB RESULT [facility] [address] [place] [id number] Provider Outside LAB - HIM EXTERNAL R ESULT EXTERNAL LAB External Lab * Glucose by meter (01/25/2019 1:11 PM CDT) Glucose 72 70 - 99 mg/dL 01/25/2019 1:23 PM CDT POINT OF CARE TEST, GLUCOSE 01/25/2019 1:11 PM CDT 01/25/2019 1:23 PM CDT Isis García DO LAB - BEAK ER POCT POINT OF CARE TEST, GLUCOSE * (ABNORMAL) Basic metabolic panel (01/24/2018 6:55 AM CDT) Sodium 131(L) 133 - 144 mmol/L 01/24/2018 8:12 AM [facility] Potassium 4.3 3.4 - 5.3 mmol/L 01/24/2018 8:12 AM [facility] Chloride 95 94 - 109 mmol/L 01/24/2018 8:12 AM [facility] Carbon Dioxide 20 20 - 32 mmol/L 01/24/2018 8:12 AM [facility] Anion Gap 16(H) 3 - 14 mmol/L 01/24/2018 8:12 AM [facility] Glucose 76 70 - 99 mg/dL 01/24/2018 8:12 AM [facility] Urea Nitrogen 78(H) 7 - 30 mg/dL 01/24/2018 8:12 AM [facility] Creatinine 13.60(H) 0.66 - 1.25 mg/dL 01/24/2018 8:12 AM [facility] GFR Estimate 4(L) >60 mL/min/1.7 m2 01/24/2018 8:12 AM [facility] Comment:Non GFR Calc GFR Estimate If Black 5(L) >60 mL/min/1.7 m2 01/24/2018 8:12 AM [facility] Comment: GFR Calc Calcium 8.7 8.5 - 10.1 mg/dL 01/24/2018 8:12 AM CDT [facility] Blood specimen (specimen) 01/24/2018 6:55 AM CDT 01/24/2018 7:53 AM CDT Janine Uriarte PA-C LAB - BLOOD [place] [facility] Organization Address City/State/ZIP Co de Phone Number [facility] [address] [place] [address], [facility] [phone] * (ABNORMAL) CBC with platelets (01/24/2018 6:55 AM CDT) WBC 3.9(L) 4.0 - 11.0 10e9/L 01/24/2018 7:59 AM T [facility] RBC Count 3.06(L) 4.4 - 5.9 10e12/L 01/24/2018 7:59 AM [facility] Hemoglobin 8.2(L) 13.3 - 17.7 g/dL 01/24/2018 7:59 AM [facility] Hematocrit 26.3(L) 40.0 - 53.0 % 01/24/2018 7:59 AM [facility] MCV 86 78 - 100 fl 01/24/2018 7:59 AM [facility] MCH 26.8 26.5 - 33.0 pg 01/24/2018 7:59 AM [facility] MCHC 31.2(L) 31.5 - 36.5 g/dL 01/24/2018 7:59 AM [facility] RDW 15.5(H) 10.0 - 15.0 % 01/24/2018 7:59 AM [facility] Platelet Count 179 150 - 450 10e9/L 01/24/2018 7:59 AM [facility] Blood specimen (specimen) 01/24/2018 6:55 AM CDT 01/24/2018 7:53 AM CDT Janine Uriarte PA-C LAB - BLOOD [place]DA [facility] [address] [address], [facility] [phone] * (ABNORMAL) Lipid panel (12/07/2017 12:34 PM BARBED WIRE MACHINE OPERATOR) Cholesterol 115 <200 mg/dL 12/07/2017 1:27 PM BARBED WIRE MACHINE OPERATOR [facility] Triglycerides 84 <150 mg/dL 12/07/2017 1:27 PM BARBED WIRE MACHINE OPERATOR [facility] HDL Cholesterol 37(L) >39 mg/dL 8 1:27 PM BARBED WIRE MACHINE OPERATOR [facility] LDL Cholesterol Calculated 61 <100 mg/dL 12/07/2017 1:27 PM BARBED WIRE MACHINE OPERATOR [facility] Comment:Desirable: <100 mg/d l Non HDL Cholesterol 78 <130 mg/dL 12/07/2017 1:27 PM BARBED WIRE MACHINE OPERATOR [facility] Blood specimen (specimen) 12/07/2017 12:34 PM BARBED WIRE MACHINE OPERATOR 12/07/2017 12:58 PM BARBED WIRE MACHINE OPERATOR Michele Fuentes MD LAB - BLOOD ORD [place] [facility] [address] [address], [facility] [phone] * (ABNORMAL) Comprehensive metabolic panel (12/16/2015 3:01 PM BARBED WIRE MACHINE OPERATOR) Sodium 131(L) 133 - 144 mmol/L [facility] Potassium 3.3(L) 3.4 - 5.3 mmol/L [facility] Chloride 93(L) 94 - 109 mmol/L [facility] Carbon Dioxide 29 20 - 32 mmol/L [facility] Anion Gap 9 3 - 14 mmol/L [facility] Glucose 97 70 - 99 mg/dL [facility] Urea Nitrogen 25 7 - 30 mg/dL [facility] Creatinine 6.94(H) 0.66 - 1.25 mg/dL [facility] GFR Estimate 8(L) >60 mL/min/1.7 m2 [facility] Comment:Non GFR Calc GFR Estimate If Black 10(L) >60 mL/min/1.7 m2 [facility] Comment: GFR Calc Calcium 7.8(L) 8.5 - 10.1 mg/dL [facility] Bilirubin Total 0.6 0.2 - 1.3 mg/dL [facility] Albumin 3.5 3.4 - 5.0 g/dL [facility] Protein Total 7.5 6.8 - 8.8 g/dL [facility] Alkaline Phosphatase 139 40 - 150 U/L [facility] ALT 16 0 - 70 U/L [facility] AST 17 0 - 45 U/L [facility] Blood specimen (specimen) 12/16/2015 3:01 PM BARBED WIRE MACHINE OPERATOR 12/16/2015 3:10 PM BARBED WIRE MACHINE OPERATOR Georgia Perez MD LAB - BLOOD ORDERABLES [facility] [address] [place] [address], [facility] [phone] * (ABNORMAL) Renal panel (08/09/2015 12:50 PM CDT) Sodium 132(L) 133 - 144 mmol/L [facility] Potassium 3.6 3.4 - 5.3 mmol/L [facility] Chloride 94 94 - 109 mmol/L [facility] Carbon Dioxide 23 20 - 32 mmol/L [facility] Anion Gap 15(H) 3 - 14 mmol/L [facility] Glucose 153(H) 70 - 99 mg/dL [facility] Urea Nitrogen 96(H) 7 - 30 mg/dL [facility] Creatinine 14.00(H) 0.66 - 1.25 mg/dL [facility] GFR Estimate 4(L) >60 mL/min/1.7 m2 [facility] Comment:Non GFR Calc GFR Estimate If Black 5(L) >60 mL/min/1.7 m2 [facility] Comment: GFR Calc Calcium 8.4(L) 8.5 - 10.1 mg/dL [facility] Phosphorus 2.3(L) 2.5 - 4.5 mg/dL [facility] Albumin 3.3(L) 3.4 - 5.0 g/dL [facility] 08/09/2015 12:5 0 PM CDT 08/09/2015 1:34 PM CDT Eugene Multani MD LAB - BLOOD ORDE MYRANDA [facility] [address] [address] [phone] * Occult blood stool (06/14/2014 7:10 PM CDT) Occult Blood Negative [facility] Stool specimen (specimen) STOOL SPECIMEN / Unknown 06/14/2014 7:10 PM CDT 06/14/2014 7:16 PM CDT Alejandro Emerson MD LAB - STOOLS ORDERAB LES [facility] * Colonoscopy - HIM Scan (09/24/2013) Narrative Suad Taylor - 09/24/2013 [facility] Progress Note Provider Outside PROCEDURES from Last 3 Months or Most Recently Relevant to Health Maintenance Advance Directives For more information, please contact: [phone] * Full Code (Latest Code Status on File) Date Activated Date Inactivated Comments 01/26/2018 12:25 PM 01/25/2019 11:45 AM * Full Code Date Activated Date Inactivated Comments 12/19/2017 2:36 PM 01/26/2018 12:25 PM * Full Code Date Activated Date Inactivated Comments 12/16/2017 2:03 PM 12/19/2017 2:36 PM * Full Code Date Activated Date Inactivated Comments 03/06/2016 7:33 AM 12/16/2017 2:03 PM * Full Code Date Activated Date Inactivated Comments 03/05/2016 12:01 PM 03/06/2016 7:33 AM Care Teams Licensed Massage Therapist Relationship Specialty Start Date End Date Preet Huff PCP - General 06/24/11
--- OUTSIDE RECORDS SUMMARY | 2024-02-23 22:21 | XMS_ITS | Encounter Summary ---
Author Name Unknown Organization [place] Address [address] [facility] [place] [address] Care Team Providers Care Community Planner Name Role Phone Preet Huff Hans Primary Care Provider [phone] Encounter Details Date Type Department Care Team (Late st Contact Info) Description 02/08/2022 External Order Results [facility] [address] [place] [address] Outside, Provider Social History Tobacco Use Types Packs/Day Years Used Date Smoking Tobacco: Never Smokeless Tobacco: Never Alcohol Use Standard Drinks/Week Comments No 0 (1 standard drink = 0.6 oz pur e alcohol) PHQ-2 Answer Date Recorded PHQ-2 Score 0 10/18/2018 Sex and Gender Information Value Date Recorded Sex Assigned at Not on file Gender Identity Male 12/05/2017 10:39 AM INTERVENTIONAL RADIOLOGY RN Sexual Orientation Not on file COVID-19 Exposure Response Date Recorded In the last 10 days, have yo u been in contact with someone who was confirmed or suspected to have Coronavirus/COVID-19? No / Unsure 02/11/2022 8:53 AM CDT documented as of this encounter Plan of Treatment Not on file documented as of this encounter Procedures Procedure Name Priority Date/Time Associated Diagnosis Comments COVID-19 VIRUS (CORONAVIRUS) BY PCR (EXTERNAL RESULT) Routine 02/08/2022 6:30 AM CDT documented in this encounter Results * COVID-19 Virus (Coronavirus) by PCR (External Result) (02/08/2022 6:30 AM CDT) COVID-19 Virus by PCR (External Result) NEG NON-INTERFACED (ONBASE SCANS) 02/08/2022 6:30 AM CDT Narrative MARIA T PFT - 02/15/2022 3:13 PM CDT Verified by Eugene Rodriguez on 02/15/2022. Provider Outside LABORATORY HANSYaneth PFCassidy NON-INTERFACED (ONBASE SCANS) documented in this encounter Visit Diagnoses Not on filedocumented in this encounter Care Teams Community Planner Relationship Specialty Start Date End Date Preet Huff PCP - General 06/24/11 documented as of this encounter
--- OUTSIDE RECORDS SUMMARY | 2024-02-23 22:21 | XMS_ITS | Encounter Summary ---
Author Name Unknown Organization [place] Address [address] [place] [address] Care Team Providers Care Abnormal Psychology Teacher Name Role Phone Preet Huff Primary Care Provider Jaxon Saravia MD Unavailable [phone] Encounter Details Date Type Department Care Team (Late st Contact Info) Description 10/20/2011 Hospital PHYS STANDARD [address] [phone] Wojciech Holman MD [facility] [address] [id number] ESRD (end stage renal disease) on dialysis (H); Hyperkalemia Social History Tobacco Use Types Packs/Day Years Used Date Smoking Tobacco: Never Smokeless Tobacco: Never Alcohol Use Standard Drinks/Week Comments No 0 (1 standard drink = 0.6 oz pur e alcohol) Sex and Gender Information Value Date Recorded Sex Assigned at Not on file Gender Identity Male 12/05/2017 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
--- OUTSIDE RECORDS SUMMARY | 2024-02-23 22:21 | XMS_ITS | Encounter Summary ---
Author Name Unknown Organization [place] Address [address] [place] [address] Care Team Providers Care In Service Coordinator Name Role Phone Preet Huff Primary Care Provider Jaxon Saravia MD Unavailable [phone] Encounter Details Date Type Department Care Team (Late st Contact Info) Description 05/07/2013 Orders Only [facility] Interventional Radiology 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
--- OUTSIDE RECORDS SUMMARY | 2024-02-23 22:21 | XMS_ITS | Referral Summary ---
Author Name Unknown Organization [facility] Address [address] [place] [address] Care Team Providers Care Hearing Care Professional Name Role Phone Preet Huff Hans Primary Care Provider [phone] Allergies Active Allergy Reactions Criticality Noted Date [...] file Gender Identity Male 12/05/2017 10:39 AM MANAGER FINE Sexual Orientation Not on file Last Filed [...] 162.6 cm (5' 4) 10/02/2019 8:26 AM MANAGER FINE Simultaneous filing. User may not have seen previous data. Body Mass Index 33.13 10/02/2019 8:26 AM MANAGER FINE Plan of Treatment Not on file Medical Devices Implanted Type Area Psychodramatist Device Identifier Shelf Expiration Date Model / Serial / Lot Graft Patch Vasc Xenosure Biologic 0.8x08cm 0.8p8 Implanted:Qty: 1 on 12/16/2017 by Jaxon Saravia MD at [facility] Bone/Tis rocco/Biol ogic Left: Iliac/Fem orals L[employer] V[employer] IN 06/06/2023 0.8P8 / / [id number] Graft Pericardium 8x0.8cm Vascu-Guard Implanted:Qty: 1 on 10/20/2011 at [facility] Right: Arm [employer] 01/16/2016 [id number] / / [id number] Femoral Popliteal Artery Implanted:Qty: 1 on 05/03/2012 by Jaxon Saravia MD at [facility] Right: Groin 12/07/2021 [id number] / [id number] / Description:CADAVER FEMORAL ARTERY RINSED IN A AND B SOLUTION: A SOLUTION LOT #[id number] EXPIRATION DATE 01/09/2014 B SOLUTION LOT #[id number] EXPIRATION DATE 11/15/2013 Graft Propaten Taper [id number] [id number] Implanted:Qty: 1 on 08/09/2012 by Jaxon Saravia MD at [facility] Right: Leg 10/24/2015 [id number] / / [id number] Graft Propaten Taper [id number] Implanted:Qty: 1 on 06/20/2013 by Jaxon Saravia MD at [facility] Left: Groin [employer] 02/07/2017 [id number] / / [id number] Graft Pericardium 8x0.8cm Vascu-Guard Implanted:Qty: 1 on 05/08/2014 by Jaxon Saravia MD at [facility] Left: Leg [employer] 11/26/2018 [id number] / PN# [id number] / [id number] Procol Vascular Bioprosthesis Implanted:Qty: 1 on 07/02/2015 by Jaxon Saravia MD at [facility] Left: Groin 12/16/2018 [id number] -[id number] / [id number] / Procol Vascular Bioprosthesis Implanted:Qty: 1 on 08/13/2015 by Jaxon Saravia MD at [facility] Left: Groin 12/16/2018 [id number] -[id number] / [id number] / Graft Vasc Bioprosthesis Procol [id number] Implanted:Qty: 1 on 03/05/2016 by Jaxon Saravia MD at [facility] Left: Leg [employer] VASC[employer] IN 02/03/2019 [id number] / [id number] / Procedures Procedure Name Priority Date/Time Associated Diagnosis Comments HEPATITIS C (HIM EXTERNAL RESULT) Routine 01/04/2022 12:00 PM CDT GLUCOSE BY METER Routine 01/25/2019 1:11 PM CDT ESRD (end stage renal disease) on dialysis (H) CBC WITH PLATELETS Routine 01/24/2018 6: 55 AM CDT BASIC METABOLIC PANEL Routine 01/24/2018 6:55 AM CDT LIPID PROFILE STAT 12/07/2017 12:34 PM MANAGER FINE Atherosclerosis of [place] artery 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 (H) COMPREHENSIVE METABOLIC PANEL STAT 12/16/2015 3:01 PM MANAGER FINE RENAL PANEL Routine 08/09/2015 12:50 PM CDT [...] - 01/04/2022 12:00 PM CDT LAB RESULT [facility] [address] [place] [address] Provider Outside LAB - HIM EXTERNAL R ESULT EXTERNAL LAB External Lab * Glucose by meter (01/25/2019 1:11 PM CDT) Glucose 72 70 - 99 mg/dL 01/25/2019 1:23 PM CDT POINT OF CARE TEST, GLUCOSE 01/25/2019 1:11 PM CDT 01/25/2019 1:23 PM CDT Isis García DO LAB - BEAK ER POCT Performing Organization Address [facility] Co de Phone Number POINT OF CARE TEST, GLUCOSE * (ABNORMAL) Basic metabolic panel (01/24/2018 6:55 AM CDT) Sodium 131(L) 133 - 144 mmol/L 01/24/2018 8:12 AM [facility] Potassium 4.3 3.4 - 5.3 mmol/L 01/24/2018 8:12 AM [facility] Chloride 95 94 - 109 mmol/L 01/24/2018 8:12 AM [facility] Carbon Dioxide 20 20 - 32 mmol/L 01/24/2018 8:12 AM [facility] Anion Gap 16(H) 3 - 14 mmol/L 01/24/2018 8:12 AM [facility] Glucose 76 70 - 99 mg/dL 01/24/2018 8:12 AM [facility] Urea Nitrogen 78(H) 7 - 30 mg/dL 01/24/2018 8:12 AM [facility] Creatinine 13.60(H) 0.66 - 1.25 mg/dL 01/24/2018 8:12 AM [facility] GFR Estimate 4(L) >60 mL/min/1.7 m2 01/24/2018 8:12 AM [facility] Comment:Non GFR Calc GFR Estimate If Black 5(L) >60 mL/min/1.7 m2 01/24/2018 8:12 AM [facility] Comment: GFR Calc Calcium 8.7 8.5 - 10.1 mg/dL 01/24/2018 8:12 AM [facility] Blood specimen (specimen) 01/24/2018 6:55 AM CDT 01/24/2018 7:53 AM CDT Janine Uriarte PA-C LAB - BLOOD [facility] [address] [place] [address], [facility] [phone] * (ABNORMAL) CBC with platelets (01/24/2018 6:55 AM CDT) Pathologist [facility] WBC 3.9(L) 4.0 - 11.0 10e9/L 01/24/2018 7:59 AM CDT [facility] RBC Count 3.06(L) 4.4 - 5.9 10e12/L 01/24/2018 7:59 AM [facility] Hemoglobin 8.2(L) 13.3 - 17.7 g/dL 01/24/2018 7:59 AM [facility] Hematocrit 26.3(L) 40.0 - 53.0 % 01/24/2018 7:59 AM [facility] MCV 86 78 - 100 fl 01/24/2018 7:59 AM [facility] MCH 26.8 26.5 - 33.0 pg 01/24/2018 7:59 AM [facility] MCHC 31.2(L) 31.5 - 36.5 g/dL 01/24/2018 7:59 AM [facility] RDW 15.5(H) 10.0 - 15.0 % 01/24/2018 7:59 AM [facility] Platelet Count 179 150 - 450 10e9/L 01/24/2018 7:59 AM [facility] Blood specimen (specimen) 01/24/2018 6:55 AM CDT 01/24/2018 7:53 AM CDT Janine Uriarte PA-C LAB - BLOOD [facility] [address] [address], [facility] [phone] * (ABNORMAL) Lipid panel (12/07/2017 12:34 PM MANAGER FINE) [facility] Cholesterol 115 <200 mg/dL 12/07/2017 1:27 PM MANAGER FINE [facility] Triglycerides 84 <150 mg/dL 12/07/2017 1:27 PM MANAGER FINE [facility] HDL Cholesterol 37(L) >39 mg/dL 8 1:27 PM MANAGER FINE [facility] LDL Cholesterol Calculated 61 <100 mg/dL 12/07/2017 1:27 PM MANAGER FINE [facility] Comment:Desirable: <100 mg/d l Non HDL Cholesterol 78 <130 mg/dL 12/07/2017 1:27 PM MANAGER FINE [facility] Blood specimen (specimen) 12/07/2017 12:34 PM MANAGER FINE 12/07/2017 12:58 PM MANAGER FINE Michele Fuentes MD LAB - BLOOD ORD ERABLES [facility] [address] [place] [address], [facility] [phone] * (ABNORMAL) Comprehensive metabolic panel (12/16/2015 3:01 PM MANAGER FINE) Sodium 131(L) 133 - 144 mmol/L [facility] Potassium 3.3(L) 3.4 - 5.3 mmol/L [facility] Chloride 93(L) 94 - 109 mmol/L [facility] Carbon Dioxide 29 20 - 32 mmol/L [facility] Anion Gap 9 3 - 14 mmol/L [facility] Glucose 97 70 - 99 mg/dL [facility] Urea Nitrogen 25 7 - 30 mg/dL [facility] Creatinine 6.94(H) 0.66 - 1.25 mg/dL [facility] GFR Estimate 8(L) >60 mL/min/1.7 m2 [facility] Comment:Non GFR Calc GFR Estimate If Black 10(L) >60 mL/min/1.7 m2 [facility] Comment: GFR Calc Calcium 7.8(L) 8.5 - 10.1 mg/dL [facility] Bilirubin Total 0.6 0.2 - 1.3 mg/dL [facility] Albumin 3.5 3.4 - 5.0 g/dL [facility] Protein Total 7.5 6.8 - 8.8 g/dL [facility] Alkaline Phosphatase 139 40 - 150 U/L [facility] ALT 16 0 - 70 U/L [facility] AST 17 0 - 45 U/L [facility] Blood specimen (specimen) 12/16/2015 3:01 PM MANAGER FINE 12/16/2015 3:10 PM MANAGER FINE Georgia Perez MD LAB - BLOOD ORDERABLES [facility] [address] [place] [address], [facility] [phone] * (ABNORMAL) Renal panel (08/09/2015 12:50 PM CDT) Sodium 132(L) 133 - 144 mmol/L [facility] Potassium 3.6 3.4 - 5.3 mmol/L [facility] Chloride 94 94 - 109 mmol/L [facility] Carbon Dioxide 23 20 - 32 mmol/L [facility] Anion Gap 15(H) 3 - 14 mmol/L [facility] Glucose 153(H) 70 - 99 mg/dL [facility] Urea Nitrogen 96(H) 7 - 30 mg/dL [facility] Creatinine 14.00(H) 0.66 - 1.25 mg/dL [facility] GFR Estimate 4(L) >60 mL/min/1.7 m2 [facility] Comment:Non GFR Calc GFR Estimate If Black 5(L) >60 mL/min/1.7 m2 [facility] Comment: GFR Calc Calcium 8.4(L) 8.5 - 10.1 mg/dL [facility] Phosphorus 2.3(L) 2.5 - 4.5 mg/dL [facility] Albumin 3.3(L) 3.4 - 5.0 g/dL [facility] 08/09/2015 12:5 0 PM CDT 08/09/2015 1:34 PM CDT Eugene Multani MD LAB - BLOOD ORDYaneth [facility] [address] [address], [facility] [phone] * Occult blood stool (06/14/2014 7:10 PM CDT) Occult Blood Negative [facility]G [facility] Stool specimen (specimen) STOOL SPECIMEN / Unknown 06/14/2014 7:10 PM CDT 06/14/2014 7:16 PM CDT Alejandro Emerson MD LAB - STOOLS ORDERAB LES [facility] * Colonoscopy - HIM Scan (09/24/2013) Narrative Suad Taylor - 09/24/2013 [facility] Progress Note Provider Outside PROCEDURES from Last 3 Months or Most Recently Relevant to Health Maintenance Advance Directives For more information, please contact: [phone] * Full Code (Latest Code Status on [...] 12:01 PM 03/06/2016 7:33 AM Care Teams Hearing Care Professional Relationship Specialty Start Date End Date Preet Huff PCP - General 06/24/11
--- OUTSIDE RECORDS SUMMARY | 2024-02-23 22:21 | XMS_ITS | Encounter Summary ---
Author Name Unknown Organization [facility] Address [address] [place] [address] Care Team Providers Care Medicaid Analyst Name Role Phone Preet Huff Primary Care Provider Jaxon Saravia MD Unavailable [phone] Encounter Details Date Type Department Care Team (Late st Contact Info) Description 12/21/2012 Orders Only [facility] Interventional Radiology 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
--- OUTSIDE RECORDS SUMMARY | 2024-02-23 22:21 | XMS_ITS | Encounter Summary ---
Author Name Unknown Organization [facility] Address [address] [place] [address] Care Team Providers Care Arcgis Developer Name Role Phone Preet Huff Primary Care Provider Jaxon Saravia MD Unavailable [phone] Encounter Details Date Type Department Care Team (Late st Contact Info) Description 05/07/2013 Orders Only [facility] Interventional Radiology 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
== END 2024-02-24 00:03 | disposition home or self-care (01) ==
PROVIDERS: Emergency Provider Emergency Medicine Emergency Medical Services; PCP Internal Medicine Nephrology
DX: D64.9 Anemia, unspecified (principal); Z99.2 Dependence on renal dialysis; Z71.1 Person with feared health complaint in whom no diagnosis is made
CPT/HCPCS: 36415; 70450; 80048; 80076; 82140; 84484; 85025; 85610; 86140; 93005; 99284; 99285

== ENCOUNTER 2024-02-23 23:58 | Outpatient (CLI) | payer MEDICARE, MEDICAID, SELFPAY ==
--- OUTSIDE RECORDS SUMMARY | 2024-06-04 10:59 | XMS_ITS | Clinical Summary ---
Author Organization [facility] Address [address] [place] [address] Phone Care Team Providers Care Track Broom Operator Name Role Phone Preet Huff MD Primary Care Provider Medications Medication Sig Dispensed Refills Start Date End Date Status cholecalciferol (VITAMIN D-3) 1000 units tablet 1 tab qd 04/02/2015 Active B Complex Vitamins (VITAMIN B COMPLEX) tablet 1 tab po daily 12/08/2012 Act bill bisacodyl (DULCOLAX) 5 MG EC tablet 2 tabs po bid 04/02/2015 Active B Yddrdma-H-Xpsct Acid (RENAL) 1 MG capsule 1 cap [...] 1982 Influenza Vaccine (#1) 2024 Care Teams Track Broom Operator Relationship Specialty Start Date End Date Preet Huff MD [address] [place] [address] PCP - General 10/31/19
--- OUTSIDE RECORDS SUMMARY | 2024-06-04 10:59 | XMS_ITS | Encounter Summary ---
Author Organization [facility] Address [address] [place] [phone] Phone Care Team Providers Care Rn Staff Name Role Phone Preet Huff MD Primary Care Provider [phone] Reason for Visit * Reason Comments Med Refill Encounter Details Date Type Department Care Team (Late st Contact Info) Description 02/12/2021 Refill [facility] [address] [facility] [address] [place], [place] [phone] María Elena Styles PA [address] [place] [address] Social History Tobacco Use Types Packs/Day Years Used Date Smoking Tobacco: Never Assessed Sex and Gender Information Value Date Recorded Sex Assigned at Not on file Gender Identity Not on file Sexual Orientation Not on file documented as of this encounter Plan of Treatment Not on file documented as of this encounter Visit Diagnoses Not on filedocumented in this encounter Care Teams Rn Staff Relationship Specialty Start Date End Date Preet Huff MD [address] [place] [phone] PCP - General 10/31/19 documented as of this encounter
--- OUTSIDE RECORDS SUMMARY | 2024-06-04 10:59 | XMS_ITS | Clinical Summary ---
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 2010 Secondary hyperparathyroidism [...] Department Care Team Description 05/21/2024 Nurse Triage [facility] [address] [place] [address] Preet Huff MD Testicle Pain 03/20/2024 11:45 AM CDT Office Visit [facility] [address] [place] [address] Preet Huff MD Hospital F/U ([facility], 02/24/2024 - 02/26/2024, 03/02/2024 - 03/12/2024, GI [...] Body Mass Index 29.24 11/08/2023 2:26 PM TESTER ELECTRONIC SCALE Plan of Treatment Upcoming Encounters Date Type Department Care Team (Late st Contact Info) Description 06/05/2024 11:00 AM CDT Ancillary Procedure [facility] [address] [place] [address] 06/07/2024 2:05 PM CDT Office Visit [facility] [address] [place] [address] Preet Huff MD [address] [place] [address] 06/07/2024 2:30 PM CDT Office Visit [facility] [address] [place] [address] Lizandro Singh MD [address] [place] [address] Health Maintenance Due Date Last Done Comments Zoster (shingles) series for age 50+ (1 of 2) 2013 Pneumococcal series for age 6-64 (3 of 3 - PPSV23 or PCV20) 03/14/2019 01/17/2019, 12/02/2015, 10/12/2010, Additional history exists Tetanus booster 10/21/2019 10/21/2009 Depression screening for age 12+ 08/13/2020 08/13/2019, 03/15/2017, 02/06/2016 COVID-19 vaccine series (2022-24 season) 2023 06/23/2022, 01/13/2022, 08/17/2021, Additional history exists Influenza for age 50-64 06/10/2024 06/23/20, 06/23/2022, [...] Completed 10/21/2009 Medical Devices Implanted Type Area Deputy Chief Counsel Device Identifier Shelf Expiration Date Model / Serial / Lot Cath Peritoneal Cvd 62cm - [id number] Implanted:Qty: 1 on 10/31/2009 at [facility] N/A: Abdomen STIVEN 05/10/2014 [id number] 10 # / / [id number] Procedures Procedure Name Priority Date/Time Associated Diagnosis Comments LIPID PANEL W REFLEX MEASURED LDL Routine 11/08/2023 3:05 PM TESTER ELECTRONIC SCALE Mixed hyperlipidemia COLONOSCOPY SCREENING Routine 09/24/2013 12:00 AM TESTER ELECTRONIC SCALE Colon cancer screening ANTI HIV 1/2 Timed 03/04/2009 10:05 AM CDT Pre-Transplant Evaluation for End Stage Renal Disease ANTI HCV Timed 03/04/2009 10:05 AM CDT Pre-Transplant Evaluation for End Stage Renal Disease from Last 3 Months or Most Recently Relevant to Health Maintenance Results * (ABNORMAL) LIPID PANEL W REFLEX MEASURED LDL (11/08/2023 3:05 PM TESTER ELECTRONIC SCALE) CHOLESTEROL,TOTAL 90(L) 100 - 199 mg/dL 11/09/2023 10:41 AM TESTER ELECTRONIC SCALE [facility] Comment: Cholesterol, Total Reference Ranges Desirable <200 mg/dL Borderline 200-239 mg/dL High >=240 mg/dL TRIGLYCERIDES 104 <150 mg/dL 11/09/2023 10:41 AM [facility] HDL CHOLESTEROL 30(L) >40 mg/dL 10:41 AM TESTER ELECTRONIC SCALE [facility] NON-HDL CHOLESTEROL 60 <145 mg/dl 11/09/2023 10:41 AM [facility] CHOL/HDL RATIO 3.00 <4.50 11/09/2023 10:41 AM TESTER ELECTRONIC SCALE [facility] LDL CHOLESTEROL 39 <=130 mg/dL 11/09/2023 10:41 AM TESTER ELECTRONIC SCALE [facility] VLDL CHOLESTEROL 21 <=30 mg/dL 11/09/2023 10:41 AM TESTER ELECTRONIC SCALE [facility] PROVIDER ORDERED STATUS RANDOM 11/09/2023 10:41 AM [facility] Blood BLOOD SPECIMEN / Unknown Butterfly / Unknown 11/08/2023 3:05 PM TESTER ELECTRONIC SCALE 11/08/2023 3:08 PM TESTER ELECTRONIC SCALE Preet Huff MD CHEMISTRY [facility] [address] [place] [address], * COLONOSCOPY SCREENING (09/24/2013 12:00 AM TESTER ELECTRONIC SCALE) Narrative 09/24/2013 12:00 AM TESTER ELECTRONIC SCALE Procedure Note Scanner - 09/24/2013 12:00 AM CST Preet Huff MD GI PROCEDURE O RD * ANTI HCV (03/04/2009 10:05 AM CDT) ANTI HCV Non-reacti ve [facility] Blood specimen (specimen) BLOOD SPECIMEN / Unknown 03/04/2009 10:05 AM CDT 03/04/2009 9:57 AM CDT Alfredo Juarez MD SEND OUTS [facility] INTERNAL ZIP [address] [address] * ANTI HIV 1/2 (03/04/2009 10:05 AM CDT) ANTI HIV 1/2 Non-reacti ve [facility] Blood specimen (specimen) BLOOD SPECIMEN / Unknown 03/04/2009 10:05 AM CDT 03/04/2009 9:57 AM CDT Alfredo Juarez MD SEND OUTS [facility] [place]NAL ZIP [id number] [place] [phone] from Last 3 Months or Most Recently Relevant to Health Maintenance Advance Directives Documents on File Type Date Recorded Patient Fitting Room Associate Expl anation Power of Satellite Dish Repairer 09/04/2014 12:00 AM 07/2009 * Full Code [...] 5:57 PM 03/16/2009 5:32 PM Care Teams Jig Grinder Set Up Operator Relationship Specialty Start Date End Date Preet Huff MD [address] [place] [address] PCP - General 12/02/06
--- OUTSIDE RECORDS SUMMARY | 2024-06-04 10:59 | XMS_ITS | Encounter Summary ---
Author Organization [facility] Address [address] [place] [phone] Phone Care Team Providers Care Care Nurse Rn Name Role Phone Preet Huff MD Primary Care Provider [phone] Reason for Visit * Reason Comments Med Refill Encounter Details Date Type Department Care Team (Late st Contact Info) Description 03/23/2021 Refill [facility] [address] [facility] [address] [place], [place] [phone] María Elena Styles PA [address] [facility] [address] [facility] [address] [place] [address] Social History Tobacco Use Types Packs/Day Years [...] on filedocumented in this encounter Care Teams Care Nurse Rn Relationship Specialty Start Date End Date Preet Huff MD [address] [place] [phone] PCP - General 10/31/19 documented as of this encounter
--- OUTSIDE RECORDS SUMMARY | 2024-06-04 11:00 | XMS_ITS | Clinical Summary ---
Author Organization [place] Address [facility] [place] [address] Care Team Providers Care Branch Sales And Service Representative Name Role Phone Preet Huff Primary Care Provider [phone] Allergies Active Allergy Reactions Criticality Noted Date Comments Aspirin GI Disturbance,Rash Low 10/15/2009 PN: LW Reaction: unknown Dihydroxyaluminum Aminoacetate Nausea Medium 07/16/2011 GI bleeding Medications Medication Sig Dispensed Refills Start Date End Date Status calcium acetate (PHOSLO) 667 MG CAPS capsule Take 1 capsule (667 mg)by mouth 3 times daily with meals Active calcium acetate (PHOSLO) 667 MG CAPS capsule Take 1 capsule (667 mg) once daily with a snack Active metoprolol tartrate (LOPRESSOR) 100 MG tablet Take 100 mg by mouth every evening Active B Qpujhkh-J-Rtwaj Acid (WESCAPS PO) Take 1 capsule by mouth every evening Active sennosides (SENOKOT) 8.6 MG tablet Take 2 tablets by mouth every other day Active pantoprazole (PROTONIX) 40 MG EC tablet Take 40 mg by mouth daily Active warfarin ANTICOAGULANT (COUMADIN) 5 MG tablet Take 1 tablet (5 mg) by mouth Tuesday through Tuesday, no dose on Sat and SunTake 1 tablet (5 mg) by mouth Tuesday through Tuesday, no dose on Sat and Sun 4 Active ciprofloxacin (CIPRO) 500 MG tabletIndications:Fo urnier's gangrene of scrotum (H28) Take 1 tablet (500 mg) by mouth daily for 7 days. 7 tablet 4 06/06/20 24 Active amoxicillin-clavulan ate (AUGMENTIN) 500-125 MG tabletIndications:Fo urnier's gangrene of scrotum (H28) Take 1 tablet by mouth daily for 7 days. 7 tablet 4 06/06/20 24 Active atorvastatin (LIPITOR) 20 MG tabletIndications:Mi xed hyperlipidemia Take 1 tablet (20 mg) by mouth every evening 30 tablet 3 8 05/23/20 24 Discontinued(Me d Rec(No AVS / No eCancel)) amLODIPine (NORVASC) 5 MG tablet Take 5 mg by mouth daily 05/23/20 24 Discontinued(Me d Rec(No AVS / No eCancel)) warfarin ANTICOAGULANT (COUMADIN) 5 MG tablet Take 1 tablet (5 mg) by mouth Tuesday through Tuesday, no dose on Sat and Sun 05/30/20 24 Discontinued blood glucose monitoring (NO BRAND SPECIFIED) meter device kitIndications:Hypog lycemia Use to test blood sugar 4 times daily or as directed. 1 kit 4 05/23/20 24 Discontinued(Me d Rec(No AVS / No eCancel)) blood glucose (NO BRAND SPECIFIED) test stripIndications:Hyp oglycemia Use to test blood sugar 4 times daily or as directed. 100 strip 6 4 05/23/20 24 Discontinued(Me d Rec(No AVS / No eCancel)) thin (NO BRAND SPECIFIED) lancetsIndications:H ypoglycemia Use with lanceting device. 200 each 6 4 05/23/20 24 Discontinued(Me d Rec(No AVS / No eCancel)) pantoprazole (PROTONIX) 40 MG EC tabletIndications:Ga strointestinal hemorrhage, unspecified gastrointestinal hemorrhage type Take 1 tablet (40 mg) by mouth 2 times daily (before meals) 60 tablet 4 05/23/20 24 Discontinued(Me d Rec(No AVS / No eCancel)) amoxicillin-clavulan ate (AUGMENTIN) 875-125 MG tabletIndications:Fo urnier's gangrene of scrotum (H28) Take 1 tablet by mouth daily for 7 days. 7 tablet 4 05/30/20 24 Discontinued(St op at Discharge) Active Problems Problem Noted Date Diagnosed Date [...] Description 05/23/2024 6:02 PM CDT Anesthesia Event [facility] [address] [place] [address] Tom Castro MD Larson, Matthew Ray, MD 05/23/2024 6:00 PM CDT - 05/23/2024 7:[address] [facility] [address] [place] [address] Lizandro Barron MD Incision and drainage, debridement of scrotal skin and subcutaneous tissues for necrotizing soft tissue infection of the scrotum 05/23/2024 1:14 PM CDT - 05/30/2024 5:21 PM CDT Hospital Encounter [place] [address] [facility] [address] [place] [address] Vi Hernandez DO Cabrera, Jesus F, MD Supratherapeutic INR; Mita's gangrene of scrotum (H28) Discharge Disposition: Home or Self Care 05/23/2024 Travel 03/08/2024 12:20 PM CDT - 03/08/2024 12:50 PM CDT Surgery [facility] [address] [place] [address] Eileen Earl MD Colonoscopy with polypectomy by cold biopsy forceps 03/06/2024 2:08 PM [address]esthesia Event [facility] [address] [place] [address] Nohemy Skinner MD 03/06/2024 1:00 PM CDT - 03/06/2024 2:10 PM [facility] [address] [place] [address] Eileen Earl MD ESOPHAGOGASTRODUODENOSCOPY 03/02/2024 1:54 PM CDT - 03/12/2024 4:36 PM CDT Hospital Encounter [place] [address] [facility] [address] [place] [address] Raúl Bernard MD Biala, Vivek, MD Hypoglycemia (Primary Dx); Anemia, unspecified type; Black stool; Gastrointestinal hemorrhage, unspecified gastrointestinal hemorrhage type Discharge Disposition: Home-Health Care Svc from Last 3 Months Immunizations Name Administration [...] School Help Needed Not on file 07/01 Food Insecurity Answer Date Recorded Within the past 12 months, d id you worry that your food would run out before you got money to buy more? Patient unable to answer 05/30/2024 Within the past 12 months, d id the food you bought just not last and you didn? t have money to get more? Patient unable to answer 05/30/2024 Housing Stability Answer Date Recorded Do you have housing? (Housin g is defined as stable permanent housing and does not include staying ouside in a car, in a tent, in an abandoned building, in an overnight fdc, or couch-surfing.) Patient unable to answer 05/30/2024 Are you worried about losing your housing? Patie nt unable to answer 05/30/2024 Financial Resource Strain Answer Date R ecorded Within the past 12 months, h ave you or your family members you live with been unable to get utilities (heat, electricity) when it was really needed? Patient unable to answer 05/30/2024 Transportation Needs Answer Date Record ed Within the past 12 months, h as lack of transportation kept you from medical appointments, getting your medicines, non-medical meetings or appointments, work, or from getting things that you need? 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 Sexual Orientation Not on file Last Filed Vital Signs Vital Sign Reading Time Taken Comments Blood Pressure 133/72 05/30/2024 12:03 PM CDT Pulse 76 05/30/2024 12:03 PM CDT Temperature 36.9 ??C (98.4 ??F) 05/30/2024 12:03 PM C DT Respiratory Rate 13 05/30/2024 12:03 PM CDT Oxygen Saturation 100% 05/30/2024 12:03 PM CDT Inhaled Oxygen Concentration - - Weight 93.3 kg (205 lb 9.6 oz) 05/30/2024 8:15 A M CDT Height 162.6 cm (5' 4) 05/23/2024 1:21 PM CDT Body Mass Index 35.29 05/23/2024 1:21 PM CDT Plan of Treatment Upcoming Encounters Date Type Department Care Team (Late st Contact Info) Description 07/05/2024 1:15 PM CDT Office Visit [address] [address] Lizandro Barron MD [address] [facility] [address] [place] [address] Health Maintenance Due Date Last Done Comments [...] 1-dose 60+ series) 2023 COVID-19 Vaccine ( - 2022-24 season) 2023 06/23/2022, 01/13/2022, 08/17/2021, Additional history exists HEPATITIS B IMMUNIZATION (10 of 10 - Risk Dialysis 4-dose series) 09/06/2023 09/06/2022, 11/07/2013, 09/25/2013, Additional history exists PHQ-2 (once per calendar year) 2023 01/15/2016 INFLUENZA VACCINE (#1) 2024 , 08/05/2021, 07/11/2020, Additional history exists BMP 08/30/2024 05/30/2024, 05/11, 05/28/2024, Additional history exists HEMOGLOBIN 11/30/2024 05/30/2024, 05/11, 05/28/2024, Additional history exists FIT 02/23/2025 02/24/2024, 06/14/2014 GLUCOSE 05/30/2027 05/30/2024, 05/11, 05/30/2024, Additional history exists COLONOSCOPY 03/08/2034 03/08/2024, 02/09, 09/24/2013, Additional history exists COLORECTAL CANCER SCREENING 03/08/2034 HEPATITIS C SCREENING Completed 01/04/2022 PHOSPHORUS Completed 03/12/2024, 0611/2023, 03/10/2024, Additional history exists ALK PHOS Completed [...] this topic Medical Devices Implanted Type Area Boxing Instructor Device Identifier Shelf Expiration Date Model / Serial / Lot Graft Patch Vasc Xenosure Biologic 0.8x08cm 0.8p8 Implanted:Qty: 1 on 12/16/2017 by Jaxon Saravia MD at [facility] Bone/Tis rocco/Biol ogic Left: Iliac/Fem orals [employer] VASC[employer] IN 06/06/2023 0.8P8 / / [id number] Graft Pericardium 8x0.8cm Vascu-Guard Implanted:Qty: 1 on 10/20/2011 at [facility] Right: Arm [employer] 01/16/2016 [id number] / / [id number] Femoral Popliteal Artery Implanted:Qty: 1 on 05/03/2012 by Jaxon Saravia MD at [facility] Right: Groin 12/07/2021 [id number] / [id number] / Description:CADAVER FEMORAL ARTERY RINSED IN A AND B SOLUTION: A SOLUTION LOT #[id number] EXPIRATION DATE 01/09/2014 B SOLUTION LOT #[id number] EXPIRATION DATE 11/15/2013 Graft Propaten Taper [id number] Implanted:Qty: 1 on 08/09/2012 by Jaxon Saravia MD at [facility] Right: Leg 10/24/2015 [id number] / / [id number] Graft Propaten Taper [id number] Implanted:Qty: 1 on 06/20/2013 by Jaxon Saravia MD at [facility] Left: Groin [employer] 02/07/2017 [id number] / / [id number] Graft Pericardium 8x0.8cm Vascu-Guard Implanted:Qty: 1 on 05/08/2014 by Jaxon Saravia MD at [facility] Left: Leg [employer] 11/26/2018 [id number] / PN# [id number] / [id number] Procol Vascular Bioprosthesis Implanted:Qty: 1 on 07/02/2015 by Jaxon Saravia MD at [facility] Left: Groin 12/16/2018 [id number] -[id number] / [id number] / Procol Vascular Bioprosthesis Implanted:Qty: 1 on 08/13/2015 by Jaxon Saravia MD at [facility] Left: Groin 12/16/2018 [id number] -[id number] / [id number] / Graft Vasc Bioprosthesis Procol [id number] Implanted:Qty: 1 on 03/05/2016 by Jaxon Saravia MD at [facility] Left: Leg [employer] IN 02/03/2019 [id number] -[id number] / [id number] / Procedures Procedure Name Priority Date/Time Associated Diagnosis Comments GLUCOSE BY METER Routine 05/30/2024 1:40 PM CDT GLUCOSE BY METER Routine 05/30/2024 7:13 AM CDT BASIC METABOLIC PANEL Routine 05/30/2024 6:54 AM CDT CBC WITH PLATELETS Routine 05/30/2024 6: 54 AM CDT INR Routine 05/30/2024 6:54 AM CDT GLUCOSE BY METER Routine 05/30/2024 2:18 AM CDT GLUCOSE BY METER Routine 05/29/2024 9:28 PM CDT GLUCOSE BY METER Routine 05/29/2024 5:54 PM CDT GLUCOSE BY METER Routine 05/29/2024 1:41 PM CDT GLUCOSE BY METER Routine 05/29/2024 7:54 AM CDT BASIC METABOLIC PANEL Routine 05/29/2024 6:22 AM CDT CBC WITH PLATELETS Routine 05/29/2024 6: 22 AM CDT INR Routine 05/29/2024 6:22 AM CDT GLUCOSE BY METER Routine 05/29/2024 2:26 AM CDT GLUCOSE BY METER Routine 05/28/2024 9:50 PM CDT GLUCOSE BY METER Routine 05/28/2024 5:08 PM CDT GLUCOSE BY METER Routine 05/28/2024 1:58 PM CDT GLUCOSE BY METER Routine 05/28/2024 7:48 AM CDT HEMOGLOBIN Routine 05/28/2024 6:07 AM CDT BASIC METABOLIC PANEL Routine 05/28/2024 6:07 AM CDT EXTRA PURPLE TOP EDTA (LAB USE ONLY) Routine 05/28/2024 6:07 AM CDT EXTRA GREEN TOP TUBE (LAB USE ONLY) Routine 05/28/2024 6:07 AM CDT INR Routine 05/28/2024 6:07 AM CDT GLUCOSE BY METER Routine 05/28/2024 2:19 AM CDT GLUCOSE BY METER Routine 05/27/2024 9:05 PM CDT GLUCOSE BY METER Routine 05/27/2024 5:11 PM CDT GLUCOSE BY METER Routine 05/27/2024 11:4 2 AM CDT GLUCOSE BY METER Routine 05/27/2024 7:44 AM CDT INR Routine 05/27/2024 7:03 AM CDT GLUCOSE BY METER Routine 05/27/2024 2:03 AM CDT GLUCOSE BY METER Routine 05/26/2024 9:29 PM CDT GLUCOSE BY METER Routine 05/26/2024 4:10 PM CDT INR STAT 05/26/2024 4:09 PM CDT GLUCOSE BY METER Routine 05/26/2024 11:3 7 AM CDT GLUCOSE BY METER Routine 05/26/2024 8:22 AM CDT CBC WITH PLATELETS & DIFFERENTIAL Routine 05/26/2024 5:47 AM CDT CBC WITH PLATELETS AND DIFFERENTIAL Routine 05/26/2024 5:47 AM CDT BASIC METABOLIC PANEL Routine 05/26/2024 5:47 AM CDT GLUCOSE BY METER Routine 05/26/2024 1:57 AM CDT GLUCOSE BY METER Routine 05/25/2024 9:32 PM CDT GLUCOSE BY METER Routine 05/25/2024 7:06 PM CDT GLUCOSE BY METER Routine 05/25/2024 5:29 PM CDT VANCOMYCIN LEVEL Timed 05/25/2024 2:04 PM CDT EXTRA PURPLE TOP EDTA (LAB USE ONLY) Routine 05/25/2024 2:04 PM CDT EXTRA GREEN TOP TUBE (LAB USE ONLY) Routine 05/25/2024 2:04 PM CDT GLUCOSE BY METER Routine 05/25/2024 2:01 PM CDT HEPATITIS B SURFACE ANTIGEN Routine 05/25/2024 9:25 AM CDT HEPATITIS B SURFACE ANTIBODY Routine 05/25/2024 9:25 AM CDT GLUCOSE BY METER Routine 05/25/2024 5:35 AM CDT GLUCOSE BY METER Routine 05/25/2024 2:01 AM CDT GLUCOSE BY METER Routine 05/24/2024 8:52 PM [...] METER Routine 03/04/2024 12:2 5 AM CDT OCCULT BLOOD STOOL STAT 02/24/2024 11 :31 AM CDT HEPATITIS C (HIM EXTERNAL RESULT) Routine 01/04/2022 12:00 PM CDT LIPID PROFILE STAT 12/07/2017 12:34 PM 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 GLUCOSE BY METER POCT 84 70 - 99 mg/dL 05/30/2024 1:46 PM CDT LABORATORY POC Blood, Capillary BLOOD SPECIMEN / Unknown 05/30/2024 1:40 PM CDT 05/30/2024 1:46 PM CDT Antonino Cheek MD LAB - BEAKER POCT LABORATORY [facility] [address] [place] Lab (1st floor, no room number) [address] * (ABNORMAL) INR (05/30/2024 6:54 AM CDT) Only the most recent of18 resultswithin the time period is included. Pathologist [facility] INR 2.26(H) 0.85 - 1.15 05/30/2024 7:20 AM CDT LABORATORY Blood STRUCTURE OF RIGHT HAND / Unknown Venipuncture / Unknown 05/30/2024 6:54 AM CDT 05/30/2024 7:06 AM CDT Antonino Cheek MD LAB - BLOOD ORDERABL ES Performing Organization Address City/[facility]/ZIP Co de Phone Number [facility] [address] Lab (1st floor, no room number) [address] * (ABNORMAL) Basic metabolic panel (05/30/2024 6:54 AM CDT) Only the most recent of5 resultswithin the time period is included. Sodium 133(L) 135 - 145 mmol/L 05/30/2024 7:29 AM CDT LABORATORY Potassium 4.6 3.4 - 5.3 mmol/L 05/30/2024 7:29 AM CDT LABORATORY Chloride 97(L) 98 - 107 mmol/L 05/30/2024 7:29 AM CDT RH LABORATORY Carbon Dioxide (CO2) 24 22 - 29 mmol/L 05/30/2024 7:29 AM CDT [facility] Anion Gap 12 7 - 15 mmol/L 05/30/2024 7:29 AM CDT [facility] Urea Nitrogen 45.6(H) 8.0 - 23.0 mg/dL 05/30/2024 7:29 AM CDT [facility] Creatinine 8.67(H) 0.67 - 1.17 mg/dL 05/30/2024 7:29 AM CDT [facility] GFR Estimate 6(L) >60 mL/min/1.7 3m2 05/30/2024 7:29 AM CDT [facility] LAB[facility]ATORY Comment:eGFR calculated us2020 CKD-EPI equation. Calcium 8.7(L) 8.8 - 10.4 mg/dL 05/30/2024 7:29 AM CDT [facility] Comment:Reference intervals for this test were updated on 04/24/2024 to reflect our healthy population more accurately. There may be differences in the flagging of prior results with similar values performed with this method. Those prior results can be interpreted in the context of the updated reference intervals. Glucose 83 70 - 99 mg/dL 05/30/2024 7:29 AM CDT LABORATORY Blood STRUCTURE OF RIGHT HAND / Unknown Venipuncture / Unknown 05/30/2024 6:54 AM CDT 05/30/2024 7:06 AM CDT Charles Mcneal MD LAB - BLOOD ORDERABL ES LABORATORY [facility] [address] [facility] Lab (1st floor, no room number) [place] [address], [facility] * (ABNORMAL) CBC with platelets (05/30/2024 6:54 AM CDT) Only the most recent of5 resultswithin the time period is included. WBC Count 5.7 4.0 - 11.0 10e3/uL 05/30/2024 7:11 AM CDT LABORATORY RBC Count 2.67(L) 4.40 - 5.90 10e6/uL 05/30/2024 7:11 AM CDT [facility] LABORATORY Hemoglobin 7.4(L) 13.3 - 17.7 g/dL 05/30/2024 7:11 AM CDT [facility] LABORATORY Hematocrit 25.0(L) 40.0 - 53.0 % 05/30/2024 7:11 AM CDT [facility] LABORATORY MCV 94 78 - 100 fL 05/30/2024 7:11 AM CDT [facility] LABORATORY MCH 27.7 26.5 - 33.0 pg 05/30/2024 7:11 AM CDT [facility] LABORATORY MCHC 29.6(L) 31.5 - 36.5 g/dL 05/30/2024 7:11 AM CDT [facility] LABORATORY RDW 20.9(H) 10.0 - 15.0 % 05/30/2024 7:11 AM CDT [facility] LABORATORY Platelet Count 165 150 - 450 10e3/uL 05/30/2024 7:11 AM CDT RH LABORATORY Blood STRUCTURE OF RIGHT HAND / Unknown Venipuncture / Unknown 05/30/2024 6:54 AM CDT 05/30/2024 7:06 AM CDT Charles Mcneal MD LAB - BLOOD ORDERABL ES Performing Organization Address City/[facility]/ZIP Co de Phone Number [facility] [address] Lab (1st floor, no room number) [place] [phone] * Extra Green Top Tube (LAB USE ONLY) (05/28/2024 6:07 AM CDT) Only the most recent of2 resultswithin the time period is included. Hold Specimen [facility] 05/28/2024 7:32 AM CDT [facility] LABORATORY Blood STRUCTURE OF LEFT HAND / Unknown Venipuncture / Unknown 05/28/2024 6:07 AM CDT 05/28/2024 6:17 AM CDT Antonino Cheek MD LAB - BLOOD ORDERABL ES [facility] [address] Lab (1st floor, no room number) [place] [phone] [place] [address] * Extra Purple Top EDTA (LAB USE ONLY) (05/28/2024 6:07 AM CDT) Only the most recent of2 resultswithin the time period is included. Hold Specimen [facility] 05/28/2024 7:32 AM CDT [facility] LABORATORY Blood STRUCTURE OF LEFT HAND / Unknown Venipuncture / Unknown 05/28/2024 6:07 AM CDT 05/28/2024 6:17 AM CDT Antonino Cheek MD LAB - BLOOD ORDERABL ES [facility] [address] Lab (1st floor, no room number) [address] * (ABNORMAL) Hemoglobin (05/28/2024 6:07 AM CDT) Only the most recent of24 resultswithin the time period is included. Hemoglobin 7.7(L) 13.3 - 17.7 g/dL 05/28/2024 9:02 AM CDT LABORATORY Blood STRUCTURE OF LEFT HAND / Unknown Venipuncture / Unknown 05/28/2024 6:07 AM CDT 05/28/2024 6:17 AM CDT Dileep Anders MD LAB - BLOOD ORD ERABLES [facility] [address] Lab (1st floor, no room number) [place] [id number] * (ABNORMAL) CBC with platelets and differential (05/26/2024 5:47 AM CDT) Only the most recent of5 resultswithin the time period is included. WBC Count 8.2 4.0 - 11.0 10e3/uL 05/26/2024 6:10 AM CDT LABORATORY RBC Count 2.89(L) 4.40 - 5.90 10e6/uL 05/26/2024 6:10 AM CDT RH LABORATORY Hemoglobin 8.0(L) 13.3 - 17.7 g/dL 05/26/2024 6:10 AM CDT [facility] LABORATORY Hematocrit 27.0(L) 40.0 - 53.0 % 05/26/2024 6:10 AM CDT [facility] LABORATORY MCV 93 78 - 100 fL 05/26/2024 6:10 AM CDT [facility] LABORATORY MCH 27.7 26.5 - 33.0 pg 05/26/2024 6:10 AM CDT [facility] LABORATORY MCHC 29.6(L) 31.5 - 36.5 g/dL 05/26/2024 6:10 AM CDT [facility] LABORATORY RDW 20.4(H) 10.0 - 15.0 % 05/26/2024 6:10 AM CDT [facility] LAB[facility]AT[facility] Platelet Count 171 150 - 450 10e3/uL 05/26/2024 6:10 AM CDT [facility] LAB[facility] % Neutrophils 80 % 05/26/2024 6:10 AM CDT [facility] % Lymphocytes 9 % 05/26/2024 6:10 AM CDT [facility] % Monocytes 6 % 05/26/2024 6:10 AM CDT [facility] % Eosinophils 2 % 05/26/2024 6:10 AM CDT [facility] % Basophils 0 % 05/26/2024 6:10 AM CDT [facility] % Immature Granulocytes 3 % 05/26/2024 6:10 AM CDT [facility] LABORATORY NRBCs per 100 WBC 0 <1 /100 024 6:10 AM CDT [facility] LAB[facility]ATORY Absolute Neutrophils 6.5 1.6 - 8.3 10e3/uL 05/26/2024 6:10 AM CDT [facility] LAB[facility]ATORY Absolute Lymphocytes 0.7(L) 0.8 - 5.3 10e3/uL 05/26/2024 6:10 AM CDT [facility] LAB[facility] Absolute Monocytes 0.5 0.0 - 1.3 10e3/uL 05/26/2024 6:10 AM CDT [facility] LAB[facility] Absolute Eosinophils 0.1 0.0 - 0.7 10e3/uL 05/26/2024 6:10 AM CDT [facility] LAB[facility] Absolute Basophils 0.0 0.0 - 0.2 10e3/uL 05/26/2024 6:10 AM CDT [facility] LAB[facility]AT[facility] Absolute Immature Granulocytes 0.3 <=0.4 10e3/uL 05/26/2024 6:10 AM CDT [facility] LABORATORY Absolute NRBCs 0.0 10e3/uL 05/26/2024 6:10 AM CDT RH LABORATORY Blood STRUCTURE OF RIGHT UPPER LIMB / Unknown Venipuncture / Unknown 05/26/2024 5:47 AM CDT 05/26/2024 6:06 AM CDT Antonino Cheek MD LAB - BLOOD ORDERABL ES Performing Organization Address City/[facility]/ZIP Co de Phone Number LABORATORY [facility] [address] Lab (1st floor, no room number) [place] [phone] * Vancomycin level (05/25/2024 2:04 PM CDT) Pathologist [facility] Vancomycin 11.9 ug/mL 05/25/2024 3:28 PM CDT RH LABORATORY Comment: Traditional Dosing Therapeutic Range: Trough 10-15 ug/mL Peak 20-40 ug/mL Critical: Greater than 25.0 ug/mL Blood STRUCTURE OF RIGHT UPPER LIMB / Unknown Venipuncture / Unknown 05/25/2024 2:04 PM CDT 05/25/2024 2:07 PM CDT Antonino Cheek MD LAB - BLOOD ORDERABL ES Performing Organization Address [facility] Co de Phone Number LABORATORY [facility] [address] Lab (1st floor, no room number) [place] [address] * Hepatitis B Surface Antibody (05/25/2024 9:25 AM CDT) Hepatitis B Surface Antibody Reactive 05/25/2024 2:27 PM CDT [facility] Comment:A reactive result [...] Surface Antibody Instrument Value >1,000.00 <8.5 m[IU]/mL 05/25/2024 2:27 PM CDT [facility] Blood BLOOD SPECIMEN / Unknown Venipuncture / Unknown 05/25/2024 9:25 AM CDT 05/25/2024 10:13 AM CDT Jose Enrique Naylor MD LAB - BLOOD ORDERABL ES Performing Organization Address City/[facility]/ZIP Co de Phone Number [facility]AT[facility] [address] [facility], [address] * Hepatitis B surface antigen (05/25/2024 9:25 AM CDT) Pathologist [facility] Hepatitis B Surface Antigen Nonreactive Nonreactive 05/25/2024 2:23 PM CDT [facility] Blood BLOOD SPECIMEN / Unknown Venipuncture / Unknown 05/25/2024 9:25 AM CDT 05/25/2024 10:13 AM CDT Jose Enrique Naylor MD LAB - BLOOD ORDERABL ES Performing Organization Address City/[facility] de Phone Number [facility] LABORATORY [facility] [address] [facility], [address] * (ABNORMAL) Comprehensive metabolic panel (05/24/2024 6:09 AM CDT) Only the most recent of4 resultswithin the time period is included. Sodium [...] MD LAB - BLOOD ORDERABL ES LABORATORY [facility] [address] [facility] Lab (1st floor, no room number) [place] [address], [facility] * (ABNORMAL) Tissue Aerobic Bacterial Culture Routine (05/23/2024 6:42 PM CDT) Culture 1+ Morganella morganii(A) JOJO 05/25/2024 11:12 PM CDT [facility] Culture 1+ Morganella morganii(A) JOJO 05/25/2024 11:12 PM CDT [facility] Culture 1+ Normal dev JOJO 05/25/2024 11:12 PM CDT [facility] Tissue SCROTAL STRUCTURE / Unknown Non-blood Collection / Unknown 05/23/2024 6:42 PM CDT 05/23/2024 6:46 PM CDT Narrative Organism Antibiotic Method Susceptibility Morganella morganii Ampicillin JOJO Resistant Comment:Intrinsicall y Resistant Morganella morganii Ampicillin/ Sulbactam JOJO >=32 ug/mL: Resistant Morganella morganii Piperacillin/Tazobactam JOJO <=4 ug/mL: Susceptible Morganella morganii Ceftazidime JOJO <=1 ug/mL: Susceptible Morganella morganii Ceftriaxone JOJO <=1 ug/mL: Susceptible Morganella morganii Cefepime JOJO <=1 ug/mL: Susceptible Morganella morganii Meropenem JOJO <=0.25 ug/mL: Susceptible Morganella morganii Gentamicin JOJO <=1 ug/mL: Susceptible Morganella morganii Tobramycin JOJO <=1 ug/mL: Susceptible Morganella morganii Ciprofloxacin JOJO <=0.25 ug/mL: Susceptible Morganella morganii Levofloxacin JOJO <=0.12 ug/mL: Susceptible Morganella morganii Trimethoprim/Sulfamethoxazole JOJO >16/304 ug/mL: Resistant Morganella morganii Ampicillin JOJO Resistant Comment:Intrinsicall y Resistant Morganella morganii Ampicillin/ Sulbactam JOJO >=32 ug/mL: Resistant Morganella morganii Piperacillin/Tazobactam JOJO <=4 ug/mL: Susceptible Morganella morganii Ceftazidime JOJO <=1 ug/mL: Susceptible Morganella morganii Ceftriaxone JOJO <=1 ug/mL: Susceptible Morganella morganii Cefepime JOJO <=1 ug/mL: Susceptible Morganella morganii Meropenem JOJO <=0.25 ug/mL: Susceptible Morganella morganii Gentamicin JOJO <=1 ug/mL: Susceptible Morganella morganii Tobramycin JOJO <=1 ug/mL: Susceptible Morganella morganii Ciprofloxacin JOJO <=0.25 ug/mL: Susceptible Morganella morganii Levofloxacin JOJO <=0.12 ug/mL: Susceptible Morganella morganii Trimethoprim/Sulfamethoxazole JOJO >16/304 ug/mL: Resistant Lizandro Barron MD LAB - MICRO GENERAL ORDERABLES [facility] Inf. Diseases Diag. Lab [address] [facility], Room [place] [id number] [place] [address] * (ABNORMAL) Gram Stain (05/23/2024 6:42 PM [...] - MICRO GENERAL ORDERABLES [facility] Inf. Diseases Diag. Lab [address] [facility], Room [address] [address] * Anaerobic Bacterial Culture Routine (05/23/2024 6:42 PM CDT) Culture 4+ Mixed Aerobic and Anaerobic dev JOJO 05/25/2024 2:01 PM CDT [facility] Comment:No predominant organ ism Tissue SCROTAL STRUCTURE / Unknown Non-blood Collection / Unknown 05/23/2024 6:42 PM CDT 05/23/2024 6:46 PM CDT Lizandro Barron MD LAB - MICRO GENERAL ORDERABLES [facility] Inf. Diseases Diag. Lab [address] [facility], [address] [place] [address], [facility] * ANE AIRWAY ETT PERFORMABLE (05/23/2024 6:21 PM CDT) Narrative Donnell Ramos APRN SALES ASSISTANT ENTERTAINMENT AND MEDIA - 05/23/2024 6:21 PM CDT Donnell Ramos APRN SALES ASSISTANT ENTERTAINMENT AND MEDIA ? 05/23/2024 ??6:33 PM Airway ? Patient location during procedure: OR ? Procedure Start/Stop Times: 05/23/2024 6:21 PM Staff - ? SALES ASSISTANT ENTERTAINMENT AND MEDIA: Yasemin Almaguer APRN CRNA ? Performed By: [...] Time: 05/23/2024 6:21 PM Tom Castro MD [facility] * EKG 12-lead, tracing only (05/23/2024 5:08 PM CDT) Systolic Blood Pressure mmHg RADIOLOGY RESULTS Diastolic Blood Pressure mmHg RADIOLOGY RESULTS Ventricular Rate 63 BPM RAD IOLOGY RESULTS Atrial Rate 63 BPM RADIOLOG Y RESULTS VA Interval 222 ms RADIOLOG Y RESULTS QRS Duration 102 ms RADIOLO GY RESULTS QT 448 ms RADIOLOGY RESULTS QTc 458 ms RADIOLOGY RESULTS P [place] 54 degrees RADIOLOGY RESULTS R AXIS -5 degrees RADIOLOGY RESULTS T [place] 24 degrees RADIOLOGY RESULTS Interpretation ECG Sinus rhythm with 1st degree A-V block Septal infarct , age undetermined Abnormal ECG When compared with ECG of 02-Mar-2024 14:00, Septal infarct is now Present No significant change was found Confirmed by - EMERGENCY ROOM, PHYSICIAN ([id number]), sound editor LIZANDRO ZABALA ([id number]) on 05/24/2024 6:44:53 AM RADIOLOGY RESULTS 05/23/2024 [...] 2:35 PM. MIKE SANTANA MD SYSTEM ID: ??[id number] Narrative 05/23/2024 2:[address] ABDOMEN [...] veins which are not included in the [id number]-rz-[id number]. MUSCULOSKELETAL: Stable degenerative changes at L4-L5 with [...] veins which are not included in the [id number]-gnbc. 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 No destructive lesions in the bones. IMPRESSION: 1. 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 2. Other chronic findings as discussed above. Findings were discussed with Dr. Kenna Coe at 2:35 PM. MIKE SANTANA MD SYSTEM ID: [id number] Vi Coe DO IMG CT ORDERABLE S * Adult Type and Screen (05/23/2024 2:07 PM CDT) Only the most recent of3 resultswithin the time period is included. ABO/RH(D) O POS 05/23/2024 1:37 PM CDT RH BLOOD BANK Antibody Screen Negative Negative 05/23/2024 1:37 PM CDT RH BLOOD BANK SPECIMEN EXPIRATION DATE [id number] 05/23/2024 1:37 PM CDT RH BLOOD BANK Blood BLOOD SPECIMEN / Unknown Venipuncture / Unknown 05/23/2024 2:07 PM CDT 05/23/2024 2:10 PM CDT Vi Coe DO LAB - BLOOD BANK TEST ORDER Performing Organization Address [facility]/ZIP Co de Phone Number BLOOD BANK [address] [place] [address] * Lactic acid whole blood (05/23/2024 1:50 PM CDT) Lactic Acid 0.9 0.7 - 2.0 mmol/L 05/23/2024 1:57 PM CDT LABORATORY Blood BLOOD SPECIMEN / Unknown Venipuncture / Unknown 05/23/2024 1:50 PM CDT 05/23/2024 1:54 PM CDT Vi Coe DO LAB - BLOOD ORDE RABLES [facility] [address] [facility] Lab (1st floor, no room number) [place] [address] * Blood Culture Peripheral Blood (05/23/2024 1:50 PM CDT) Culture No Growth 05/28/2024 4:06 PM CDT [facility] Blood BLOOD SPECIMEN / Unknown Venipuncture / Unknown 05/23/2024 1:50 PM CDT 05/23/2024 1:53 PM CDT Vi Coe DO LAB - MICRO GENE RAL ORDERABLES [facility] Inf. Diseases Diag. Lab [address] [facility], [address] [place] [address], [facility] * (ABNORMAL) Renal panel (03/12/2024 6:06 AM CDT) Only the most recent of7 resultswithin the time period is included. Sodium [...] Earl MD LAB - BLOOD ORDERA BLES [facility] [address] Lab (1st floor, no room number) [place] [address] * Glucose (03/12/2024 6:06 AM CDT) Only the most recent of2 resultswithin the time period is included. Glucose 77 70 - 99 mg/dL 03/12/2024 6:35 AM CDT RH LABORATORY Blood STRUCTURE OF RIGHT UPPER LIMB / Unknown Venipuncture / Unknown 03/12/2024 6:06 AM CDT 03/12/2024 6:10 AM CDT Ron Tripathi MD LAB - BLOOD ORDERABL ES LABORATORY [facility] [address] Lab (1st floor, no room number) [place] [address] * XR Chest Port 1 View (03/11/2024 3:25 AM CDT) Anatomical Region Laterality Modality Chest Digital Radiogra phy 03/11/2024 3:25 AM CDT Impressions 03/11/2024 3:30 AM CDT IMPRESSION: Normal heart size and pulmonary vascularity. Lungs clear. No pneumothorax. Minimal fluid or thickening along the right fissure. Narrative 03/11/2024 3:30 AM CDT EXAM: XR CHEST PORT 1 VIEW LOCATION: [facility] DATE: 03/11/2024 INDICATION: Shortness of breath COMPARISON: None. Procedure Note David Díaz MD - 03/11/2024 EXAM: XR CHEST PORT 1 VIEW LOCATION: [facility] DATE: 03/11/2024 INDICATION: Shortness of breath COMPARISON: None. IMPRESSION: Normal heart size and pulmonary vascularity. Lungs clear. Nopneumothorax. Minimal fluid or thickening along the right fissure. Addis Zhang MD, IMG DIAGNOSTIC TAY[facility]ING ORDERABLES * CONDITIONAL Transfuse red blood cells (unit) 1; No special requirements (03/10/2024 11:23 PM CDT) Only the most recent of3 resultswithin the time period is included. Eileen Earl MD BLOOD TRANSFUSION ORDERABLES * CONDITIONAL Prepare red blood cells (unit) (03/10/2024 6:37 PM CDT) Only the most recent of3 resultswithin the time period is included. Blood Component Type Red Blood Cells RH BLOOD BANK Product Code T6317R99 RH BLOO D BANK Unit Status Transfused RH BLOO D BANK Unit Number [id number] RH B LOOD BANK CROSSMATCH Compatible RH BLOOD BANK CODING SYSTEM [id number] RH BLO OD BANK ISSUE DATE AND TIME [id number] RH BLOOD BANK UNIT ABO/RH O+ RH BLOOD BANK UNIT TYPE ISBT 5100 RH BL OOD BANK 03/10/2024 6:37 PM CDT Eileen Earl MD BLOOD BANK PRODUCT ORDERABLES RH [place] [address], [facility] * Morphology Tracking (03/09/2024 9:12 AM CDT) Blood VENOUS LINE / Unknown Venipuncture / Unknown 03/09/2024 9:12 AM CDT 03/09/2024 9:26 AM CDT Antonino Cheek MD LAB - BLOOD ORDERABL ES Performing Organization Address City/[facility]/ZIP Co de Phone Number [facility] [address] Lab (1st floor, no room number) [place] [phone] [place] [address] * Lactate Dehydrogenase (03/09/2024 9:12 AM CDT) Lactate Dehydrogenase 226 0 - 250 U/L 03/09/2024 9:59 AM CDT LABORATORY Blood VENOUS LINE / Unknown Venipuncture / Unknown 03/09/2024 9:12 AM CDT 03/09/2024 9:26 AM CDT Antonino Cheek MD LAB - BLOOD ORDERABL ES Performing Organization Address [facility] Co de Phone Number [facility] [address] Lab (1st floor, no room number) [place] [phone] [place] [address] * (ABNORMAL) Reticulocyte count (03/09/2024 9:12 AM CDT) % Reticulocyte 2.8(H) 0.5 - 2.0 % 03/09/2024 9:33 AM CDT LABORATORY Absolute Reticulocyte 0.072 0.025 - 0.095 10e6/uL 03/09/2024 9:33 AM CDT LABORATORY Blood VENOUS LINE / Unknown Venipuncture / Unknown 03/09/2024 9:12 AM CDT 03/09/2024 9:26 AM CDT Antonino Cheek MD LAB - BLOOD ORDERABL ES Performing Organization Address City/[facility]/ZIP Co de Phone Number [facility] [address] Lab (1st floor, no room number) [place] [phone] [place] [address] * Haptoglobin (03/09/2024 9:12 AM CDT) Haptoglobin 127 30 - 200 mg/dL 03/10/2024 1:23 AM CDT [facility] Blood VENOUS LINE / Unknown Venipuncture / Unknown 03/09/2024 9:12 AM CDT 03/09/2024 9:26 AM CDT Antonino Cheek MD LAB - BLOOD ORDERABL ES [facility] [address] [facility], [address] [place] [address] * Bld morphology pathology review (03/09/2024 9:12 AM CDT) Final Diagnosis Peripheral blood for morphology: -Moderate normochromic, normocytic anemia without evidence of red cell regeneration; no morphologic or laboratory features of hemolysis detected -Slight mature neutrophilia without morphologic abnormalities 03/13/2024 10:[address] [facility] Comment Review of recent laboratory data notes normal LDH and haptoglobin. The history of GI bleeding and end-stage renal disease on hemodialysis are noted. Both conditions would contribute to the anemia present. 03/13/2024 10:[address] [facility] Clinical Information Looking for signs of hemolysis 03/13/2024 10:[address] [facility] Peripheral Smear ERYTHROCYTES: The hemoglobin [...] 50: Marked thrombocytopenia 03/13/2024 10:[address] [facility] Performing Labs The technical component of this testing was completed at [facility], [facility] and [facility] 03/13/2024 10:[address] [facility] Blood VENOUS LINE / Unknown [...] for interpretation. Antonino DEAN - DAVID [facility] Lab [address] 1[address], [address] [place] [address] * Bilirubin Direct and Total (03/09/2024 9:12 AM CDT) Bilirubin Direct 0.22 0.00 - 0.30 mg/dL 03/09/2024 9:59 AM CDT RH LABORATORY Bilirubin Total 0.5 <=1.2 mg/dL 03/09/2024 9:59 AM CDT RH LABORATORY Blood VENOUS LINE / Unknown Venipuncture / Unknown 03/09/2024 9:12 AM CDT 03/09/2024 9:26 AM CDT Antonino Cheek MD LAB - BLOOD ORDERABL ES [facility] [address] Lab (1st floor, no room number) [place] [address], [facility] * Surgical Pathology Exam (03/08/2024 1:26 PM CDT) Case Report Surgical Pathology Report ? Case: [id number] ? Authorizing Provider: ??Eileen Earl MD ?Collected: ? 03/08/2024 01:26 PM ? Ordering Location: ? [facility] ?Received: ?03/08/2024 02:01 PM ? [facility] ? Pathologist: ? Jae Cardona MD ? [...] Microscopic examination was performed. 03/09/2024 10:13 AM T LABORATORY Performing Labs The technical component of this testing was completed at [facility]. Stain controls for all stains resulted within this report have been reviewed and show appropriate reactivity. 03/09/2024 10:13 AM CDT LABORATORY Case Images 03/09/2024 10:13 AM CDT LABORATORY Polyp RECTUM PART / Unknown 03/08/2024 1:26 PM CDT 03/08/2024 2:01 PM CDT Eileen DEAN - DAVID [facility] [address] [facility] ([facility]st floor, no room number) [place] [address] * COLONOSCOPY (03/08/2024 1:04 PM CDT) COLONOSCOPY [facility] Patient Name: Herminio Victor ? Procedure [...] continuously. The ?Olympus Adult Colonoscope, Model # CF-IL245V, ?Censitrac # [id number] was introduced through the ?anus and advanced [...] Note Initiated On: 03/08/2024 1:04 PM MRN: ?[id number] Procedure Date: ? 03/08/2024 1:04:50 PM Scope Withdrawal Time: 0 hours 11 minutes 55 seconds Total Procedure Duration: 0 hours 17 minutes 23 seconds Estimated Blood Loss: ? Scope In: 1:12:27 PM Scope Out: 1:29:50 PM RADIOLOGY RESULTS 03/08/2024 1:04 PM CDT Eileen Eral MD PROCEDURES RADIOLOGY RESULTS * US Upper [...] US UPPER EXTREMITY VENOUS DUPLEX RIGHT LOCATION: [facility] DATE: 03/07/2024 INDICATION: Swelling, looking [...] US UPPER EXTREMITY VENOUS DUPLEX RIGHT LOCATION: [facility] DATE: 03/07/2024 INDICATION: Swelling, looking [...] Patricio Bocanegra RN ? 03/07/2024 ??1:41 PM [facility] Single Lumen Midline Placement Date/Time: 03/07/2024 [...] procedure a time out was called ?? [place] Protocol: the [employer] [place] Protocol was followed ?? Preparation: Patient was [...] size: 4 Fr Brand: Bard Lot number: [id number] Placement method: venipuncture, MST and ultrasound Number [...] (SST) (03/06/2024 7:55 PM CDT) Hold Specimen JI 03/06/2024 9:03 PM CDT LABORATORY Blood BLOOD SPECIMEN / Unknown Venipuncture / Unknown 03/06/2024 7:55 PM CDT 03/06/2024 7:55 PM CDT Ron Tripathi MD LAB - BLOOD ORDERABL ES LABORATORY [facility] [address] [facility] (1st floor, no room number) [place] [address] * UPPER GI ENDOSCOPY (03/06/2024 1:21 PM CDT) [facility] Upper GI Endoscopy [facility] Patient Name: Herminio Victor ? Procedure [...] ?Olympus Gastroscope, Model # GIF-H190, Censitrac # ?[id number] was introduced through the mouth, and ?advanced [...] Note Initiated On: 03/06/2024 1:21 PM MRN: ?[id number] Procedure Date: ? 03/06/2024 1:21:29 PM Total [...] Blood Cells RH BLOOD BANK Product Code [id number] RH BLOO D BANK Unit Status Transfused RH BLOO D BANK Unit Number [id number] RH B LOOD BANK CROSSMATCH Compatible RH BLOOD BANK CODING SYSTEM [id number] RH BLO OD BANK ISSUE DATE AND TIME [id number] RH BLOOD BANK UNIT ABO/RH O+ RH BLOOD BANK UNIT TYPE ISBT 5100 RH BL OOD BANK 03/06/2024 7:50 AM CDT Antonino Cheek MD BLOOD BANK PRODUCT O RDERABLES BLOOD BANK [address] [place] [address] * (ABNORMAL) Potassium (03/04/2024 6:29 PM CDT) Potassium 5.6(H) 3.4 - 5.3 mmol/L 03/04/2024 7:00 PM CDT LABORATORY Blood STRUCTURE OF LEFT HAND / Unknown Venipuncture / Unknown 03/04/2024 6:29 PM CDT 03/04/2024 6:37 PM CDT Job Her MD LAB - BLOOD ORDERABL ES Performing Organization Address City/[facility]/ZIP Co de Phone Number LABORATORY [facility] [address] [employer] Lab (1st floor, no room number) [place] [address] * Cortisol (03/04/2024 6:45 AM CDT) [...] DO LAB - BLOOD ORDER NADIA LABORATORY [facility] [address] [facility], [address] [place] [address] * (ABNORMAL) Occult blood stool (02/24/2024 11:31 AM CDT) Occult Blood Positive(A ) Negative JOJO 02/24/2024 11:40 AM CDT LABORATORY Stool RECTAL CONTENTS / Unknown Non-blood Collection / Unknown 02/24/2024 11:31 AM CDT 02/24/2024 11:38 AM CDT Jae Noel MD LAB - STOOLS ORDERAB LES LABORATORY [facility] [address] Lab (1st floor, no room number) [place] [address] * Hepatitis C (HIM External Result) (01/04/2022 12:00 PM CDT) Hep C HIM See Scanned Document EXTERNAL LAB Comment:Nonreactive 01/04/2022 12:0 0 PM CDT Narrative EXTERNAL LAB - 01/04/2022 12:00 PM CDT LAB RESULT [facility] [address] [place] [address] Provider Outside LAB - HIM EXTERNAL R ESULT Performing Organization Address City/[facility]/ZIP Co de Phone Number EXTERNAL LAB External Lab * (ABNORMAL) Lipid panel (12/07/2017 12:34 PM [employer]ING MECH[employer]IC) Cholesterol 115 <200 mg/dL 12/07/2017 1:27 PM FRAMING MECHANIC [facility] Triglycerides 84 <150 mg/dL 12/07/2017 1:27 PM [facility] HDL Cholesterol 37(L) >39 mg/dL 8 1:27 PM [facility] LDL Cholesterol Calculated 61 <100 mg/dL 12/07/2017 1:27 PM [facility] Comment:Desirable: <100 mg/d l Non HDL Cholesterol 78 <130 mg/dL 12/07/2017 1:27 PM [facility] Blood specimen (specimen) 12/07/2017 12:34 PM [employer] 12/07/2017 12:58 PM [employer]ING MECH[employer]IC Michele Fuentes MD LAB - BLOOD ORD ERABLES Performing Organization Address City/[facility]/ZIP Co de Phone Number [facility] [address] [place] [address], [facility] [phone] from Last 3 Months or Most Recently Relevant to Health Maintenance Advance Directives For more information, please contact: [phone] * Full Code (Latest Code Status on File) Date Activated Date Inactivated Comments 05/23/2024 8:47 PM 05/30/2024 7:28 PM All basic an d advanced life-sustaining [...] 12:25 PM 01/25/2019 11:45 AM Care Teams Branch Sales And Service Representative Relationship Specialty Start Date End Date Preet Huff PCP - General 06/24/11
--- OUTSIDE RECORDS SUMMARY | 2024-06-04 11:00 | XMS_ITS | Referral Summary ---
Author Organization [place] Address [address] [place] [address] Care Team Providers Care Electrical Maintenance Technician Name Role Phone Preet Huff Hans Primary Care Provider [phone] Encounters Date Type Department Care Team Description 05/23/2024 1:14 PM CDT - 05/30/2024 5:21 PM CDT Hospital Encounter [place] [address] Medical Surgical [address] [place] [address] Vi Hernandez DO Cabrera, Jesus F, MD Supratherapeutic INR; Mita's gangrene of scrotum (H28) Discharge Disposition: Home or Self Care 05/23/2024 6:02 PM CDT Anesthesia Event [facility] PeriOp [facility] [address] [place] [address] Tom Castro MD Larson, Matthew Ray, MD 05/23/2024 6:00 PM CDT - 05/23/2024 7:00 PM CDT Surgery [facility] [address] [place] [address] Lizandro Barron MD Incision and drainage, debridement of scrotal skin and subcutaneous tissues for necrotizing soft tissue infection of the scrotum 05/23/2024 Travel 03/02/2024 1:54 PM CDT - 03/12/2024 4:36 PM CDT Hospital Encounter [place] [address] Medical Surgical [address] [place] [address] Raúl Bernard MD Biala, Vivek, MD Hypoglycemia (Primary Dx); Anemia, unspecified type; Black stool; Gastrointestinal hemorrhage, unspecified gastrointestinal hemorrhage type Discharge Disposition: Home-Health Care [facility] 03/08/2024 12:20 PM CDT - 03/08/2024 12:50 PM CDT Surgery [facility] [place] [address] [place] [address] Eileen Earl MD Colonoscopy with polypectomy by cold biopsy forceps 03/06/2024 2:08 PM CDT Anesthesia Event [facility] [address] [place] [address] Nohemy Skinner MD 03/06/2024 1:00 PM CDT - 03/06/2024 2:10 PM CDT Surgery [facility] [address] [place] [address] Eileen Earl MD ESOPHAGOGASTRODUODENOSCOPY from Last 3 Months Allergies Active Allergy [...] mg by mouth every evening Active B Wymelhj-C-Qjadh Acid (WESCAPS PO) Take 1 capsule by [...] in an abandoned building, in an overnight snf, or couch-surfing.) Patient unable to answer 05/30/2024 [...] file Gender Identity Male 12/05/2017 10:39 AM 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 Bone/Tis rocco/Biol ogic Left: Iliac/Fem orals LEMAITRE VASCULAR IN 06/06/2023 0.8P8 / / [id number] Graft Pericardium 8x0.8cm Vascu-Guard Implanted:Qty: 1 on 10/20/[address] [facility] Right: Arm [employer] 01/16/2016 [id number] / / [id number] Femoral Popliteal Artery Implanted:Qty: 1 on 05/03/2012 by Jaxon Saravia MD at [facility] Right: Groin 12/07/2021 [id number] / [id number] / Description:CADAVER FEMORAL ARTERY RINSED IN A AND B SOLUTION: A SOLUTION LOT #[id number] EXPIRATION DATE 01/09/2014 B SOLUTION LOT #[id number] EXPIRATION DATE 11/15/2013 Graft Propaten Taper 4-8poo25nq [id number] Implanted:Qty: 1 on 08/09/2012 by Jaxon Saravia MD at [facility] Right: Leg 10/24/2015 [id number] / / [id number] Graft Propaten Taper 4-1bun28yo [id number] Implanted:Qty: 1 on 06/20/2013 by Jaxon Saravia MD at [facility] Left: Groin [employer] 02/07/2017 [id number] / / [id number] Graft Pericardium 8x0.8cm Vascu-Guard Implanted:Qty: 1 on 05/08/2014 by Jaxon Saravia MD at [facility] Left: Leg [employer] 11/26/2018 [id number] / PN# [id number] / [id number] Procol Vascular Bioprosthesis Implanted:Qty: 1 on 07/02/2015 by Jaxon Saravia MD at [facility] Left: Groin 12/16/2018 [id number] -[id number] / [id number] / Procol Vascular Bioprosthesis Implanted:Qty: 1 on 08/13/2015 by Jaxon Saravia MD at [facility] Left: Groin 12/16/2018 [id number] -[id number] / [id number] -15 / Graft Vasc Bioprosthesis Procol [id number] Implanted:Qty: 1 on 03/05/2016 by Jaxon Saravia MD at [facility] Left: Leg LEMAITRE VASCULAR IN 02/03/2019 [id number] -[id number] / [id number] / Procedures Procedure [...] CDT LIPID PROFILE STAT 12/07/2017 12:34 PM GRADES 1 THROUGH 5 TEACHER Atherosclerosis of [place] artery of left lower extremity [...] LAB - BEAKER POCT Performing Organization Address City/[facility]/ZIP Co de Phone Number RH LABORATORY POC [facility] Lab [address] Lab (1st floor, no room number) [address] * (ABNORMAL) INR (05/30/2024 6:54 AM CDT) Only the most recent of18 resultswithin the time period is included. INR 2.26(H) 0.85 - 1.15 05/30/2024 7:20 AM CDT LABORATORY Blood STRUCTURE OF RIGHT HAND / Unknown Venipuncture / Unknown 05/30/2024 6:54 AM CDT 05/30/2024 7:06 AM CDT Antonino Cheek MD LAB - BLOOD ORDERABL ES Performing Organization Address [facility]/ZIP Co de Phone Number LABORATORY [facility] Care Lab [address] Lab (1st floor, no room number) [address] * (ABNORMAL) Basic metabolic panel (05/30/2024 6:54 AM CDT) Only the most recent of5 resultswithin the time period is included. Sodium 133(L) 135 - 145 mmol/L 05/30/2024 7:29 AM CDT LABORATORY Potassium 4.6 3.4 - 5.3 mmol/L 05/30/2024 7:29 AM CDT LABORATORY Chloride 97(L) 98 - 107 mmol/L 05/30/2024 7:29 AM CDT LABORATORY Carbon Dioxide (CO2) 24 22 - 29 mmol/L 05/30/2024 7:29 AM CDT LABORATORY Anion Gap 12 7 - 15 mmol/L 05/30/2024 7:29 AM CDT LABORATORY Urea Nitrogen 45.6(H) 8.0 - 23.0 mg/dL 05/30/2024 7:29 AM CDT LABORATORY Creatinine 8.67(H) 0.67 - 1.17 mg/dL 05/30/2024 7:29 AM CDT LABORATORY GFR Estimate 6(L) >60 mL/min/1.7 3m2 [...] - 99 mg/dL 05/30/2024 7:29 AM CDT RH LABORATORY Blood STRUCTURE OF RIGHT HAND / Unknown Venipuncture / Unknown 05/30/2024 6:54 AM CDT 05/30/2024 7:06 AM CDT Charles Mcneal MD LAB - BLOOD ORDERABL ES RH LABORATORY [facility] Lab [address] [facility] Lab (1st floor, no room number) [place] [address] * (ABNORMAL) CBC with platelets (05/30/2024 6:54 AM CDT) Only the most recent of5 resultswithin the time period is included. WBC Count 5.7 4.0 - 11.0 10e3/uL 05/30/2024 7:11 AM CDT RH LABORATORY RBC Count 2.67(L) 4.40 - 5.90 [...] - BLOOD ORDERABL ES Performing Organization Address City/[facility]/ZIP Co de Phone Number LABORATORY [facility] Lab [address] Lab (1st floor, no room number) [place] [phone] * Extra Green Top Tube (LAB USE ONLY) (05/28/2024 6:07 AM CDT) Only the most recent of2 resultswithin the time period is included. Hold Specimen [facility] 05/28/2024 7:32 AM CDT RH LABORATORY Blood STRUCTURE OF LEFT HAND / Unknown Venipuncture / Unknown 05/28/2024 6:07 AM CDT 05/28/2024 6:17 AM CDT Antonino Cheek MD LAB - BLOOD ORDERABL ES Performing Organization Address City/[facility]/ZIP Co de Phone Number LABORATORY [facility] Care Lab [address] Lab (1st floor, no room number) [place] [address] * Extra Purple Top EDTA (LAB USE ONLY) (05/28/2024 6:07 AM CDT) Only the most recent of2 resultswithin the time period is included. Hold Specimen [facility] 05/28/2024 7:32 AM CDT RH LABORATORY Blood STRUCTURE OF LEFT HAND / Unknown Venipuncture / Unknown 05/28/2024 6:07 AM CDT 05/28/2024 6:17 AM CDT Antonino Cheek MD LAB - BLOOD ORDERABL ES [facility] Care Lab [address] Lab (1st floor, no room number) [address] [place] [address] * (ABNORMAL) Hemoglobin (05/28/2024 6:07 AM CDT) Only the most recent of24 resultswithin the time period is included. Hemoglobin 7.7(L) 13.3 - 17.7 g/dL 05/28/2024 9:02 AM CDT RH LABORATORY Blood STRUCTURE OF LEFT HAND / Unknown Venipuncture / Unknown 05/28/2024 6:07 AM CDT 05/28/2024 6:17 AM CDT Dileep Anders MD LAB - BLOOD ORD ERABLES Performing Organization Address [facility]/ZIP Co de Phone Number [facility] Lab [address] Lab (1st floor, no room number) [address] [place] [address] * (ABNORMAL) CBC with platelets and differential (05/26/2024 5:47 AM CDT) Only the most recent of5 resultswithin the time period is included. WBC Count 8.2 4.0 - 11.0 10e3/uL 05/26/2024 6:10 AM CDT RH LABORATORY RBC Count 2.89(L) 4.40 - 5.90 [...] LAB - BLOOD ORDERABL ES RH LABORATORY [facility] [address] Lab (1st floor, no room number) [place] [address] * Vancomycin level (05/25/2024 2:04 PM CDT) Vancomycin 11.9 ug/mL 05/25/2024 3:28 PM CDT LABORATORY Comment: Traditional Dosing Therapeutic Range: Trough 10-15 ug/mL Peak 20-40 ug/mL Critical: Greater than 25.0 ug/mL Blood STRUCTURE OF RIGHT UPPER LIMB / Unknown Venipuncture / Unknown 05/25/2024 2:04 PM CDT 05/25/2024 2:07 PM CDT Antonino Cheek MD LAB - BLOOD ORDERABL ES LABORATORY [facility] [address] Lab (1st floor, no room number) [place] [address] * Hepatitis B Surface Antibody (05/25/2024 9:25 AM CDT) Hepatitis B Surface Antibody Reactive 05/25/2024 2:27 PM CDT U LABORATORY Comment:A reactive result [...] Naylor MD LAB - BLOOD ORDERABL ES [facility] LABORATORY [facility] [place] [facility] Lab [address] [facility], [address] [place] [address] * Hepatitis B surface antigen (05/25/2024 9:25 AM CDT) Hepatitis B Surface Antigen Nonreactive Nonreactive 05/25/2024 2:23 PM CDT UU LABORATORY Blood BLOOD SPECIMEN / Unknown Venipuncture / Unknown 05/25/2024 9:25 AM CDT 05/25/2024 10:13 AM CDT Jose Enrique Naylor MD LAB - BLOOD ORDERABL ES [facility] LABORATORY [facility] [place] [facility] Lab [address] [facility], [address] [place] [address] * (ABNORMAL) Comprehensive metabolic panel (05/24/2024 [...] 6:40 AM CDT RH LABORATORY Comment:eGFR calculated 2020 CKD-EPI equation. Calcium 9.3 8.8 - [...] MD LAB - BLOOD ORDERABL ES LABORATORY [facility] [address] [facility] Lab (1st floor, no room number) [place] [address], [facility] * (ABNORMAL) Tissue Aerobic Bacterial Culture Routine [...] - MICRO GENERAL ORDERABLES U[facility] IDD LABORATORY [facility] Inf. Diseases Diag. Lab [address] [facility], [address] [place] [address], [facility] * (ABNORMAL) Gram Stain (05/23/2024 6:42 [...] - MICRO GENERAL ORDERABLES [facility] ID[facility] LABORATORY [facility] Inf. Diseases Diag. Lab [address] [facility], Room [address] * Anaerobic Bacterial Culture Routine (05/23/2024 6:42 PM CDT) Pathologist [facility] Culture 4+ Mixed Aerobic and Anaerobic dev JOJO 05/25/2024 2:01 PM CDT UU IDD LABORATORY Comment:No predominant organ ism Tissue SCROTAL STRUCTURE / Unknown Non-blood Collection / Unknown 05/23/2024 6:42 PM CDT 05/23/2024 6:46 PM CDT Lizandro Barron MD LAB - MICRO GENERAL ORDERABLES [facility] ID[facility] LABORATORY [facility] Inf. Diseases Diag. Lab [address] [facility], Room [address] * ANE AIRWAY ETT PERFORMABLE (05/23/2024 6:21 PM CDT) Narrative Donnell Ramos APRN MERCANTILE REPORTER - 05/23/2024 6:21 PM CDT Stock DonnellLINDA jiangN MERCANTILE REPORTER ? 05/23/2024 ??6:33 PM Airway ? Patient location during procedure: OR ? Procedure Start/Stop Times: 05/23/2024 6:21 PM Staff - ? MERCANTILE REPORTER: Yasemin Almaguer, JUDITH MERCANTILE REPORTER ? Performed By: CRNAIndications and Patient Condition [...] Time: 05/23/2024 6:21 PM Tom Castro MD [facility]ESTHESIA * EKG 12-lead, tracing only (05/23/2024 5:08 PM CDT) Systolic Blood Pressure mmHg RADIOLOGY RESULTS Diastolic Blood Pressure mmHg RADIOLOGY RESULTS Ventricular Rate 63 BPM RAD IOLOGY RESULTS Atrial Rate 63 BPM RADIOLOG Y RESULTS LA Interval 222 ms RADIOLOG Y RESULTS QRS Duration 102 ms RADIOLO GY RESULTS QT 448 ms RADIOLOGY RESULTS QTc 458 ms RADIOLOGY RESULTS P [place] 54 degrees RADIOLOGY RESULTS R AXIS -5 degrees RADIOLOGY RESULTS T [place] 24 degrees RADIOLOGY RESULTS Interpretation ECG Sinus rhythm with 1st degree A-V block Septal infarct , age undetermined Abnormal ECG When compared with ECG of 02-Mar-2024 14:00, Septal infarct is now Present No significant change was found Confirmed by - EMERGENCY ROOM, PHYSICIAN ([place]), offline editor LIZANDRO ZABALA ([id number]) on 05/24/2024 6:44:53 AM RADIOLOGY RESULTS 05/23/2024 [...] 2:35 PM. MIKE SANTANA MD SYSTEM ID: ??[id number] Narrative 05/23/2024 2:[address] ABDOMEN [...] veins which are not included in the [id number]-gu-abgp. MUSCULOSKELETAL: Stable degenerative changes at L4-L5 with [...] veins which are not included in the [id number]-pg-eboa. 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 No destructive lesions in the bones. IMPRESSION: 1. 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 2. Other chronic findings as discussed above. Findings were discussed with Dr. Kenna Coe at 2:35 PM. MIKE SANTANA MD SYSTEM ID: [id number] Vi Coe DO IMG CT ORDERABLE S * Adult Type and Screen (05/23/2024 2:07 PM CDT) Only the most recent of3 resultswithin the time period is included. ABO/RH(D) O POS 05/23/2024 1:37 PM CDT RH BLOOD BANK Antibody Screen Negative Negative 05/23/2024 1:37 PM CDT RH BLOOD BANK SPECIMEN EXPIRATION DATE [id number] 05/23/2024 1:37 PM CDT RH BLOOD BANK Blood BLOOD SPECIMEN / Unknown Venipuncture / Unknown 05/23/2024 2:07 PM CDT 05/23/2024 2:10 PM CDT Vi Coe DO LAB - BLOOD BANK TEST ORDER BLOOD BANK [address] [place] [address] * Lactic acid whole blood (05/23/2024 1:50 PM CDT) Lactic Acid 0.9 0.7 - 2.0 mmol/L 05/23/2024 1:57 PM CDT RH LABORATORY Blood BLOOD SPECIMEN / Unknown Venipuncture / Unknown 05/23/2024 1:50 PM CDT 05/23/2024 1:54 PM CDT Vi Coe DO LAB - BLOOD ORDE RABLES LABORATORY [facility] [address] [facility] Lab (1st floor, no room number) [place] [address] * Blood Culture Peripheral Blood (05/23/2024 1:50 PM CDT) Culture No Growth 05/28/2024 4:06 PM CDT UU IDD LABORATORY Blood BLOOD SPECIMEN / Unknown Venipuncture / Unknown 05/23/2024 1:50 PM CDT 05/23/2024 1:53 PM CDT Vi Coe DO LAB - MICRO GENE RAL ORDERABLES UU IDD LABORATORY [facility] Inf. Diseases Diag. Lab [address] [facility], [address] [place] [address], [facility] * (ABNORMAL) Renal panel (03/12/2024 6:06 AM [...] Earl MD LAB - BLOOD ORDERA BLES [facility] Acute Care Lab [address] Lab (1st floor, no room number) [place] [address] * Glucose (03/12/2024 6:06 AM CDT) Only the most recent of2 resultswithin the time period is included. Glucose 77 70 - 99 mg/dL 03/12/2024 6:35 AM CDT LABORATORY Blood STRUCTURE OF RIGHT UPPER LIMB / Unknown Venipuncture / Unknown 03/12/2024 6:06 AM CDT 03/12/2024 6:10 AM CDT Ron Tripathi MD LAB - BLOOD ORDERABL ES Performing Organization Address City/[facility]/ZIP Co de Phone Number [facility] Lab [address] Lab (1st floor, no room number) [place] [address] * XR Chest Port 1 View (03/11/2024 3:25 AM CDT) Anatomical Region Laterality Modality Chest Digital Radiogra phy 03/11/2024 3:25 AM CDT Impressions 03/11/2024 3:30 AM CDT IMPRESSION: Normal heart size and pulmonary vascularity. Lungs clear. No pneumothorax. Minimal fluid or thickening along the right fissure. Narrative 03/11/2024 3:30 AM CDT EXAM: XR CHEST PORT 1 VIEW LOCATION: [facility] DATE: 03/11/2024 INDICATION: Shortness of breath COMPARISON: None. Procedure Note David Díaz MD - 03/11/2024 EXAM: XR CHEST PORT 1 VIEW LOCATION: [facility] DATE: 03/11/2024 INDICATION: Shortness of breath COMPARISON: [...] Blood Cells RH BLOOD BANK Product Code X6588Z83 RH BLOO D BANK Unit Status Transfused RH BLOO D BANK Unit Number [id number] RH B LOOD BANK CROSSMATCH Compatible RH BLOOD BANK CODING SYSTEM [id number] RH BLO OD BANK ISSUE DATE AND TIME [id number] RH BLOOD BANK UNIT ABO/RH O+ RH BLOOD BANK UNIT TYPE ISBT 5100 RH BL OOD BANK 03/10/2024 6:37 PM CDT Eileen Earl MD BLOOD BANK PRODUCT ORDERABLES BLOOD BANK [address] [email or web address] [address] * Morphology Tracking (03/09/2024 9:12 AM CDT) Blood VENOUS LINE / Unknown Venipuncture / Unknown 03/09/2024 9:12 AM CDT 03/09/2024 9:26 AM CDT Antonino Cheek MD LAB - BLOOD ORDERABL ES LABORATORY [facility] [address] Lab (1st floor, no room number) [place] [address] * Lactate Dehydrogenase (03/09/2024 9:12 AM CDT) Lactate Dehydrogenase 226 0 - 250 U/L 03/09/2024 9:59 AM CDT RH LABORATORY Blood VENOUS LINE / Unknown Venipuncture / Unknown 03/09/2024 9:12 AM CDT 03/09/2024 9:26 AM CDT Antonino Cheek MD LAB - BLOOD ORDERABL ES [facility] [address] Lab (1st floor, no room number) [place] [address] * (ABNORMAL) Reticulocyte count (03/09/2024 9:12 AM CDT) % Reticulocyte 2.8(H) 0.5 - 2.0 % 03/09/2024 9:33 AM CDT LABORATORY Absolute Reticulocyte 0.072 0.025 - 0.095 10e6/uL 03/09/2024 9:33 AM CDT LABORATORY Blood VENOUS LINE / Unknown Venipuncture / Unknown 03/09/2024 9:12 AM CDT 03/09/2024 9:26 AM CDT Antonino Cheek MD LAB - BLOOD ORDERABL ES Performing Organization Address [facility]/ZIP Co de Phone Number [facility] Lab [address] Lab (1st floor, no room number) [place] [address] * Haptoglobin (03/09/2024 9:12 AM CDT) Haptoglobin 127 30 - 200 mg/dL 03/10/2024 1:23 AM CDT U LABORATORY Blood VENOUS LINE / Unknown Venipuncture / Unknown 03/09/2024 9:12 AM CDT 03/09/2024 9:26 AM CDT Antonino Cheek MD LAB - BLOOD ORDERABL ES [facility]U LABORATORY [facility] [place] [facility] Lab [address] [facility], [address] [place] [address], [facility] * Bld morphology pathology review (03/09/2024 9:12 AM CDT) Final Diagnosis Peripheral blood for morphology: -Moderate normochromic, normocytic anemia without evidence of red cell regeneration; no morphologic or laboratory features of hemolysis detected -Slight mature neutrophilia without morphologic abnormalities 03/13/2024 10:17 AM T [facility] Comment Review of recent laboratory data notes normal LDH and haptoglobin. The history of GI bleeding and end-stage renal disease on hemodialysis are noted. Both conditions would contribute to the anemia present. 03/13/2024 10:[address] [facility] PATHOLOGY LAB Clinical Information Looking for signs of hemolysis 03/13/2024 10:[address] [facility] PATHOLOGY LAB Peripheral Smear ERYTHROCYTES: The hemoglobin [...] 50: Marked thrombocytopenia 03/13/2024 10:17 AM CDT [facility] Performing Labs The technical component of this testing was completed at [facility], [facility] and [facility] 03/13/2024 10:17 AM CDT [facility] Blood VENOUS LINE / [...] Antonino Cheek MD LAB - BEAKER AP [facility] PATH[facility] LAB [facility] Pathology Lab [address], [address] [place] [address] * Bilirubin Direct and Total (03/09/2024 9:12 AM CDT) Bilirubin Direct 0.22 0.00 - 0.30 mg/dL 03/09/2024 9:59 AM CDT LABORATORY Bilirubin Total 0.5 <=1.2 mg/dL 03/09/2024 9:59 AM CDT LABORATORY Blood VENOUS LINE / Unknown Venipuncture / Unknown 03/09/2024 9:12 AM CDT 03/09/2024 9:26 AM CDT Antonino Cheek MD LAB - BLOOD ORDERABL ES LABORATORY [facility] [address] Lab (1st floor, no room number) [place] [address], [facility] * Surgical Pathology Exam (03/08/2024 1:26 PM CDT) Case Report Surgical Pathology Report ? Case: [id number] ? Authorizing Provider: ??Eileen Earl MD ?Collected: ? 03/08/2024 01:26 PM ? Ordering Location: ? [facility] ?Received: ?03/08/2024 02:01 PM ? [facility] [place] ? Pathologist: ? Jae Cardona MD ? [...] component of this testing was completed at [facility] Laboratory. Stain controls for all stains resulted within this report have been reviewed and show appropriate reactivity. 03/09/2024 10:13 AM CDT LABORATORY Case Images 03/09/2024 10:13 AM CDT LABORATORY Polyp RECTUM PART / Unknown 03/08/2024 1:26 PM CDT 03/08/2024 2:01 PM CDT Eileen Earl MD LAB - DAVID [facility] [address] [facility], no room number) [place] [address] * COLONOSCOPY (03/08/2024 1:04 PM CDT) COLONOSCOPY [facility] Patient Name: Herminio [...] continuously. The ?Olympus Adult Colonoscope, Model # [id number], ?Censitrac # [id number] was introduced through the ?anus and advanced [...] Note Initiated On: 03/08/2024 1:04 PM MRN: ?[id number] Procedure Date: ? 03/08/2024 1:04:50 PM Scope [...] US UPPER EXTREMITY VENOUS DUPLEX RIGHT LOCATION: [facility] DATE: 03/07/2024 INDICATION: Swelling, looking for DVT [...] US UPPER EXTREMITY VENOUS DUPLEX RIGHT LOCATION: [facility] DATE: 03/07/2024 INDICATION: Swelling, looking for DVT [...] procedure a time out was called ?? Clinton Protocol: the Joint Commission Clinton Protocol was followed ?? Preparation: Patient was [...] type: non-valved Catheter size: 4 Fr Brand: Pod Inns Lot number: [id number] Placement method: venipuncture, MST and ultrasound Number [...] Separator Tube (SST) (03/06/2024 7:55 PM CDT) Pathologist [facility] Hold Specimen JI 03/06/2024 9:03 PM CDT LABORATORY Blood BLOOD SPECIMEN / Unknown Venipuncture / Unknown 03/06/2024 7:55 PM CDT 03/06/2024 7:55 PM CDT Ron Tripathi MD LAB - BLOOD ORDERABL ES [facility] Lab [address] [facility] Lab (1st floor, no room number) [place] [address] * UPPER GI ENDOSCOPY (03/06/2024 1:21 PM CDT) Upper GI Endoscopy [facility] Patient [...] ?Olympus Gastroscope, Model # [id number]-H190, Censitrac # ?[id number] was introduced through the mouth, and ?advanced [...] Note Initiated On: 03/06/2024 1:21 PM MRN: ?[id number] Procedure Date: ? 03/06/2024 1:21:29 PM Total [...] Blood Cells RH BLOOD BANK Product Code [id number] RH BLOO D BANK Unit Status Transfused RH BLOO D BANK Unit Number [id number] RH B LOOD BANK CROSSMATCH Compatible RH BLOOD BANK CODING SYSTEM [id number] RH BLO OD BANK ISSUE DATE AND TIME [id number] RH BLOOD BANK UNIT ABO/RH O+ RH BLOOD BANK UNIT TYPE ISBT 5100 RH BL OOD BANK 03/06/2024 7:50 AM CDT Antonino Cheek MD BLOOD BANK PRODUCT O RDERABLES RH BLOOD BANK [address] [place] [address], [facility] * (ABNORMAL) Potassium (03/04/2024 6:29 PM CDT) Potassium 5.6(H) 3.4 - 5.3 mmol/L 03/04/2024 7:00 PM CDT RH LABORATORY Blood STRUCTURE OF LEFT HAND / Unknown Venipuncture / Unknown 03/04/2024 6:29 PM CDT 03/04/2024 6:37 PM CDT Job Her MD LAB - BLOOD ORDERABL ES LABORATORY [facility] [address] Lab (1st floor, no room number) [place] [address] * Cortisol (03/04/2024 6:45 AM CDT) Cortisol [...] DO LAB - BLOOD ORDER NADIA LABORATORY [facility] Core Lab [address] [facility], [address] [place] [address] * (ABNORMAL) Occult blood stool (02/24/2024 11:31 AM CDT) Occult Blood Positive(A ) Negative JOJO 02/24/2024 11:40 AM CDT LABORATORY Stool RECTAL CONTENTS / Unknown Non-blood Collection / Unknown 02/24/2024 11:31 AM CDT 02/24/2024 11:38 AM CDT Jae Noel MD LAB - STOOLS ORDERAB LES LABORATORY [facility] [address] Lab (1st floor, no room number) [place] [address], [facility] * Hepatitis C (HIM External Result) (01/04/2022 12:00 PM CDT) Hep C HIM See Scanned Document EXTERNAL LAB Comment:Nonreactive 01/04/2022 12:0 0 PM CDT Narrative EXTERNAL LAB - 01/04/2022 12:00 PM CDT LAB RESULT [facility] [address] [place] [id number] Provider Outside LAB - HIM EXTERNAL R ESULT EXTERNAL LAB External Lab * (ABNORMAL) Lipid panel (12/07/2017 12:34 PM [facility] 1 [employer] 5 TEACHER) Cholesterol 115 <200 mg/dL 12/07/2017 1:27 PM [facility] [employer] 5 TEACHER [facility] Triglycerides 84 <150 mg/dL 12/07/2017 1:27 PM [facility] [employer] 5 TE[employer]ER [facility] HDL Cholesterol 37(L) >39 mg/dL 8 1:27 PM [facility] LDL Cholesterol Calculated 61 <100 mg/dL 12/07/2017 1:27 PM [facility] 1 [employer] 5 TEACHER [facility] Comment:Desirable: <100 mg/d l Non HDL Cholesterol 78 <130 mg/dL 12/07/2017 1:27 PM [facility] 1 [employer] 5 TEACHER [facility] Blood specimen (specimen) 12/07/2017 12:34 PM [facility] 1 [employer] 5 TEACHER 12/07/2017 12:58 PM [facility] [employer] 5 TEACHER Michele Fuentes MD LAB - BLOOD ORD ERABLES [facility] [address] [address], [facility] [phone] from Last 3 Months or Most Recently Relevant to Health Maintenance Advance Directives For more information, please contact: [phone] * Full Code (Latest Code Status on [...] 12:25 PM 01/25/2019 11:45 AM Care Teams Electrical Maintenance Technician Relationship Specialty Start Date End Date Preet Huff PCP - General 06/24/11
--- OUTSIDE RECORDS SUMMARY | 2024-06-04 11:01 | XMS_ITS | Encounter Summary ---
Author Organization [place] Address [address] [place] [address] Care Team Providers Care Grill Associate Name Role Phone Cornell Butt Primary Care Provider [phone] Reason for Referral * Home Health Therapies & Aides (Routine: Next available opening) - Pending Review Specialty Diagnoses / Procedures Referred By Contac t Referred To Contact Diagnoses Jose's gangrene of scrotum (H28) Charles Mcneal MD [address] [place] [address] Referral ID Status Reason Start Date Expiration Date V isits Requested Visits Authorized [id number] Pending Review 05/30/2024 05/30/2025 1 1 Question Answer Reason for Referral: Intermediate Intermediate Eval and Treat for: Complex aftercare, Wound assessment and care Additional Services Needed: Home Health Aide Is the patient homebound? Yes Homebound Status (describe the functional limitations that support this patient is confined to his/her home. Medicaid recipients are not required to be homebound.): Patient has difficulty ambulating >100 ft I attest that I saw or will see the patient on this date: 05/30/2024 Provider to follow patient CORNELL BUTT [[id number]] Comments Your provider has ordered home health services. If you have not been contacted within 2 days of your discharge please call the selected Home Care agency listed on your Discharge document. If a Home Care agency is NOT listed, please call [phone]. Reason for Visit * Reason Comments Penis/Scrotum Problem * Auth/Cert Specialty Diagnoses / Procedures Referred By Rocky t Referred To Contact EMERGENCY MEDICINE Diagnoses Supratherapeutic INR Jose's gangrene of scrotum (H28) Emergency Dept [address] [place] [address] Referral ID Status Reason Start Date Expiration Date Visits Re quested Visits Authorized [id number] 1 1 Encounter Details Date Type Department Care Team (Late st Contact Info) Description 05/23/2024 1:14 PM CDT - 05/30/2024 5:21 PM CDT Hospital Encounter [place] [id number] Medical Surgical [address] [place] [phone] Vi Hernandez, [facility] [address] [place], [place] [address] Antonino Cheek MD [address] [place] [address] Supratherapeutic INR; Jose's gangrene of scrotum (H28) Discharge Disposition: Home or Self Care Social [...] file Gender Identity Male 12/05/2017 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 Physician Discharge Summary [facility] Hospitalist Discharge Summary-[facility] Name: Herminio Victor Date of : 1965 Age: [age] year old Primary care provider: Cornell Butt Admit date: 05/23/2024 Discharge date and time: 05/30/2024 Discharge Physician: Charles Mcneal M.D., M.B.A. Primary Discharge Diagnosis Jose's gangrene Secondary Diagnosis /chronic medical conditions Past Medical History: Diagnosis Date A-V fistula (H24) left forearm Anemia Anemia Blind Chronic in-center hemodialysis status (H24) Cognitive deficits Diabetes mellitus (H) DVT (deep venous thrombosis) (H) ESRD (end stage renal disease) (H) dialysis [facility] History of staph septicemia 12/20/2015 Hyperkalemia [...] REVISION FISTULA ARTERIOVENOUS LOWER EXTREMITY; Surgeon: Jaxon Buenorstro MD; Location: [place] REVISION FISTULA ARTERIOVENOUS LOWER [...] EXTREMITY;; Surgeon: Jaxon Buenrostro MD; Location: OR Brief Summary of Hospital stay : Please refer to Admission H&P note and subsequent progress notes in EMR for full details of patient care. Reason for Presentation to the Hospital(c/c , working diagnosis ): scrotal swelling, foul-smelling and radiological findings compatible with Jose's gangrene Brief Summary of Problem list (medical problems addressed during hospital stay) Significant findings(Primary diagnosis )Treatments provided(Hospital course ,consults, procedures) Herminio Victor is a 59 year old male admitted on 05/23/2024. He presents with scrotal swelling,foul-smelling and radiological findings compatible with Jose's gangrene. 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 Patient is admitted to the hospital for treatment. Both urology and infectious service consulted. Wound culture revealed Morganella morganii. Antibiotic recommendation was per infectious disease service. Jose's gangrene, ID recommended to continue Zosyn and antibiotics to continue until 05/30 and antibiotic was changed to oral regimen on discharge End-stage renal disease on hemodialysis Tuesday, Tuesday, Tuesday Diabetes mellitus type 2 Cognitive deficits Anemia History of DVT on chronic anticoagulation in the form of warfarin Hypertension Legally blind On the day of discharge, patient was afebrile. He underwent hemodialysis. Wound care instructions given. Patient was discharged in stable condition. Consultations during hospital stay: PHARMACY TO DOSE VANCO UROLOGY IP CONSULT NEPHROLOGY IP CONSULT INFECTIOUS DISEASES IP CONSULT WOUND OSTOMY CONTINENCE NURSE IP CONSULT CARE MANAGEMENT / SOCIAL WORK IP CONSULT PHARMACY TO DOSE VANCO WOUND OSTOMY CONTINENCE NURSE IP CONSULT CARE MANAGEMENT / SOCIAL WORK IP CONSULT PHARMACY TO DOSE WARFARIN PHYSICAL THERAPY ADULT IP CONSULT OCCUPATIONAL THERAPY ADULT IP CONSULT Patient discharge Condition: stable BP 133/72 (BP Location: Right arm) Pulse 76 Temp 98.4 ??F (36.9 ??C) (Oral) Resp 13 Ht 1.626 m (5' 4) Wt 93.3 kg (205 lb 9.6 oz) SpO2 100% BMI 35.29 kg/m?? Discharge Instructions: Patient/family instructions: Written discharge instruction given to patient/family Discharge Medications: Review of your medicines START taking Dose / Directions amoxicillin-clavulanate 875-125 MG tablet Commonly known as: AUGMENTIN Dose: 1 tablet Take 1 tablet by mouth daily for 7 days. Quantity: 7 tablet Refills: 0 ciprofloxacin 500 MG tablet Commonly known as: CIPRO Dose: 500 mg Take 1 tablet (500 mg) by mouth daily for 7 days. Quantity: 7 tablet Refills: 0 CONTINUE these medicines which may have CHANGED, or have new prescriptions. If we are uncertain of the size of tablets/capsules you have at home, strength may be listed as something that might have changed. Dose / Directions warfarin ANTICOAGULANT 5 MG tablet Commonly known as: COUMADIN This may have changed: additional instructions Take 1 tablet (5 mg) by mouth Tuesday through Tuesday, no dose on Sat and SunTake 1 tablet (5 mg) by mouth Tuesday through Tuesday, no dose on Sat and Sun Refills: 0 CONTINUE these medicines which have NOT CHANGED Dose / Directions * calcium acetate 667 MG Caps capsule Commonly known as: PHOSLO Take 1 capsule (667 mg)by mouth 3 times daily with meals Refills: 0 * calcium acetate 667 MG Caps capsule Commonly known as: PHOSLO Take 1 capsule (667 mg) once daily with a snack Refills: 0 metoprolol tartrate 100 MG tablet Commonly known as: LOPRESSOR Dose: 100 mg Take 100 mg by mouth every evening Refills: 0 pantoprazole 40 MG EC tablet Commonly known as: PROTONIX Dose: 40 mg Take 40 mg by mouth daily Refills: 0 sennosides 8.6 MG tablet Commonly known as: SENOKOT Dose: 2 tablet Take 2 tablets by mouth every other day Refills: 0 WESCAPS PO Dose: 1 capsule Take 1 capsule by mouth every evening Refills: 0 * This list has 2 medication(s) that are the same as other medications prescribed for you. Read thedirections carefully, and ask your doctor or other care provider to review them with you. Where to get your medicines These medications [place] - [address] [facility] [address] [place] [address] amoxicillin-clavulanate 875-125 MG tablet ciprofloxacin 500 MG tablet Discharge diet:Orders Placed This Encounter Renal Diet (dialysis) Diet Discharge activity:Activity as tolerated Discharge follow-up: Follow up with primary care provider in 7 days or earlier if symptoms return or gets worse. Follow up with bus info consultant as instructed with nephrology Other instructions: We discussed with patient/family about detail discharge instructions as well as discharge medications above including potential risks,side effects and benefits.Patient/family understood benefits and potential serious side effects of taking these medications and need to follow up with PCP if the patient develops complications. Patient is also advised to see a doctor immediately for severe symptoms. Major procedure performed/ Significant Diagnostic Studies: Results for orders placed or performed during the hospital encounter of 05/23/24 CT Abdomen Pelvis w Contrast Narrative CT [...] subcutaneous tissues of the scrotum consistent with Jose's gangrene. ADDITIONAL FINDINGS: No lymphadenopathy in the [...] veins which are not included in the [id number]. 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 No destructive lesions in the bones. Impression IMPRESSION: 1. 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 2. Other chronic findings as discussed above. Findings were discussed with Dr. Kenna Coe at 2:35 PM. MIKE LIPSCOMB MD SYSTEM ID: [id number] Recent Labs Lab 05/30/24 0654 05/29/24 0622 05/28/24 0607 05/26/24 0547 WBC 5.7 7.2 -- 8.2 HGB 7.4* 7.5* 7.7* 8.0* HCT 25.0* 25.7* -- 27.0* MCV 94 96 -- 93 PLT 165 183 -- 171 No results for input(s): CULT in the last 168 hours. Recent Labs Lab 05/30/24 1340 05/30/24 0713 05/30/24 0654 05/29/24 0754 05/29/24 0622 05/28/24 0748 05/28/24 0607 05/24/24 0912 05/24/24 0609 NA -- -- 133* -- 133* -- 136 < > 131* POTASSIUM -- -- 4.6 -- 4.0 -- 4.7 < > 4.3 CHLORIDE -- -- 97* -- 95* -- 98 < > 94* CO2 -- -- 24 -- 25 -- 22 < > 24 ANIONGAP -- -- 12 -- 13 -- 16* < > 13 GLC 84 82 83 < > 87 < > 77 < > 115* BUN -- -- 45.6* -- 30.7* -- 50.8* < > 28.9* CR -- -- 8.67* -- 6.71* -- 9.64* < > 5.89* GFRESTIMATED -- -- 6* -- 9* -- 6* < > 10* JON -- -- 8.7* -- 8.7* -- 8.7* < > 9.3 PROTTOTAL -- -- -- -- -- -- -- -- 6.7 ALBUMIN -- -- -- -- -- -- -- -- 3.0* BILITOTAL -- -- -- -- -- -- -- -- 0.5 ALKPHOS -- -- -- -- -- -- -- -- 62 AST -- -- -- -- -- -- -- -- 13 ALT -- -- -- -- -- -- -- -- 19 < > = values in this interval not displayed. Recent Labs Lab 05/30/24 1340 05/30/24 0713 05/30/24 0654 05/30/24 0218 05/29/24 2128 GLC 84 82 83 138* 160* Recent Labs Lab 05/30/24 0654 05/29/24 0622 05/28/24 0607 INR 2.26* 1.92* 1.87* Pending Results: Unresulted Labs Ordered in the Past 30 Days of this Admission No orders found from 04/23/2024 to 05/24/2024. Patient Allergies: Allergies Allergen Reactions Dihydroxyaluminum Aminoacetate Nausea GI bleeding Aspirin GI Disturbance and Rash PN: LW Reaction: unknown Disposition: Disposition: home I saw and evaluated the patient on day of discharge and discharge instructions reviewed and all thepatient's questions and concerns addressed. Over 30 minutes spent on discharge and coordination of discharge process for this patient. Disclaimer: This note consists of symbols derived from keyboarding, dictation and/or voice recognition software. As a result, there may be errors in the script that have gone undetected. Please consider this when interpreting information found in this chart documented in this encounter Discharge Instructions * Discharge Instructions* Herminio Mckinley RN - 05/26/2024 10:15 AM CDT Your home care referral was sent to [facility] for RN If you haven't heard from them within the next 24-48 hours, Please call them at [phone] Scrotum wound(s): Twice a day, can decrease to once a day as drainage decreases Cleanse with Vashe Pack with Vashe moistened kerlix fluff Cover with ABD documented in this encounter Medications at Time of Discharge Medication Sig Dispensed Refills Start Date End Date amoxicillin-clavulanate (AUGMENTIN) 500-125 MG tabletIndications:Fournie r's gangrene of scrotum (H28) Take 1 tablet by mouth daily for 7 days. 7 tablet 05/30/2024 06/06/2024 B Apjwodc-S-Niwbw Acid (WESCAPS PO) Take 1 capsule by mouth every evening calcium acetate (PHOSLO) 667 MG CAPS capsule Take 1 capsule (667 mg)by mouth 3 times daily with meals calcium acetate (PHOSLO) 667 MG CAPS capsule Take 1 capsule (667 mg) once daily with a snack ciprofloxacin (CIPRO) 500 MG tabletIndications:Fournie r's gangrene of scrotum (H28) Take 1 tablet (500 mg) by mouth daily for 7 days. 7 tablet 05/30/2024 06/06/2024 metoprolol tartrate (LOPRESSOR) 100 MG tablet Take 100 mg by mouth every evening pantoprazole (PROTONIX) 40 MG EC tablet Take 40 mg by mouth daily sennosides (SENOKOT) 8.6 MG tablet Take 2 tablets by mouth every other day warfarin ANTICOAGULANT (COUMADIN) 5 MG tablet Take 1 tablet (5 mg) by mouth Tuesday through Tuesday, no dose on Sat and SunTake 1 tablet (5 mg) by mouth Tuesday through Tuesday, no dose on Sat and Sun 05/30/2024 documented as of this encounter Progress Notes * Alejandro Emerson MD - 05/30/2024 11:54 AM CDT Inpatient Dialysis Progress Note Assessment and Plan: 1 ESRD: -MWF -L upper thigh AVF, 15 g -3.5 hrs +heparin -Dr. Holman, [place] dialysis Running today. 2 anemia in ESRD-Mircera as outpatient 3 Jose's gangrene-status post I & D. Completed Zosyn. 4 hyperphosphatemia-on PhosLo Plan: Next run Tuesday in [place]. Interval History: Planning discharge home today post HD. Family and home care to provide cares at home. Zosyn course complete. Dialysis Parameters: Wt Readings from Last 4 Encounters: 05/30/24 93.3 kg (205 lb 9.6 oz) 03/05/24 84.3 kg (185 lb 13.6 oz) 02/24/24 86.6 kg (190 lb 14.7 oz) 02/11/22 87.5 kg (193 lb) I/O last 3 completed shifts: In: 1066 [P.O.:960; I.V.:106] Out: - BP Readings from Last 3 Encounters: 05/30/24 131/58 03/12/24 (!) 149/50 02/26/24 129/53 Routine, ONE TIME, Starting today For 1 Occurrences Weight Loss (kg): 2 Dialysis Temp: 36.5 ??C Access Device: AVF Access Site: L thigh Dialyzer: Revaclear Dialysis Bath: K 2 Blood Flow Rate (mL/min): 400 Total Treatment Time (hrs): 3.5 Heparin: yes Medications and Allergies: Reviewed in EPIC Current Facility-Administered Medications Medication Dose Route Frequency Provider Last Rate Last Admin - MEDICATION INSTRUCTIONS for Dialysis Patients - Does not apply See Admin Instructions Antonino Cheek MD calcium acetate (PHOSLO) capsule 667 mg 667 mg Oral TID w/meals Antonino Cheek MD 667 mg at 05/29/24 1832 insulin aspart (NovoLOG) injection (RAPID ACTING) 1-7 Units Subcutaneous TID AC Antonino Cheek MD 1 Units at 05/29/24 1755 insulin aspart (NovoLOG) injection (RAPID ACTING) 1-5 Units Subcutaneous At Bedtime Antonino Cheek MD metoprolol tartrate (LOPRESSOR) tablet 100 mg 100 mg Oral QAM Antonino Cheek MD 100 mg at 05/29/24 0939 pantoprazole (PROTONIX) EC tablet 40 mg 40 mg Oral QAM AC Antonino Cheek MD 40 mg at 05/29/24 0939 piperacillin-tazobactam (ZOSYN) 2.25 g vial to attach to NS 100 ml bag 2.25 g Intravenous Q8H Antonino Cheek MD 200 mL/hr at 05/30/24 0648 2.25 g at 05/30/24 0648 sennosides (SENOKOT) tablet 2 tablet 2 tablet Oral Every Other Day Antonino Cheek MD 2 tablet at05/28/24 0805 sodium chloride (PF) 0.9% PF flush 3 mL 3 mL Intracatheter Q8H Antonino Cheek MD 3 mL at 05/30/24 0648 vitamin B complex with vitamin C (STRESS TAB) tablet 1 tablet 1 tablet Oral QPM Antonino Cheek MD 1 tablet at 05/29/242032 warfarin ANTICOAGULANT (COUMADIN) half-tab 3.5 mg 3.5 mg Oral ONCE at 18:00 Charles Mcneal MD Warfarin Dose Required Daily - Pharmacist Managed 1 each Oral See Admin Instructions García Cheek MD Current Facility-Administered Medications Medication Dose Route Frequency Provider Last Rate Last Admin calcium carbonate (TUMS) chewable tablet 1,000 mg 1,000 mg Oral 4x Daily PRN Antonino Cheek MD glucose gel 15-30 g 15-30 g Oral Q15 Min PRN Antonino Cheek MD Or dextrose 50 % injection 25-50 mL 25-50 mL Intravenous Q15 Min PRN Antonino Cheek MD Or glucagon injection 1 mg 1 mg Subcutaneous Q15 Min PRN Antonino Cheek MD HYDROmorphone (DILAUDID) injection 0.2-0.4 mg 0.2-0.4 mg Intravenous Q2H PRN Antonino Cheek MD 0.2 mg at 05/25/24 0844 lidocaine (LMX4) cream Topical Q1H PRN Antonino Cheek MD lidocaine 1 % 0.1-1 mL 0.1-1 mL Other Q1H PRN Antonino Cheek MD lidocaine 1 % 0.5 mL 0.5 mL Intradermal Once PRN Alejandro Emerson MD lidocaine 1 % 0.5 mL 0.5 mL Intradermal Once PRN Alejandro Emerson MD naloxone (NARCAN) injection 0.2 mg 0.2 mg Intravenous Q2 Min PRN Antonino Cheek MD Or naloxone (NARCAN) injection 0.4 mg 0.4 mg Intravenous Q2 Min PRN Antonino Cheek MD Or naloxone (NARCAN) injection 0.2 mg 0.2 mg Intramuscular Q2 Min PRN Antonino Cheek MD Or naloxone (NARCAN) injection 0.4 mg 0.4 mg Intramuscular Q2 Min PRN Antonino Cheek F, MD ondansetron (ZOFRAN) injection 4 mg 4 mg Intravenous Q6H PRN Antonino Cheek MD 4 mg at 05/24/24 1458 senna-docusate (SENOKOT-S/PERICOLACE) 8.6-50 MG per tablet 1 tablet 1 tablet Oral BID PRN Antonino Cheek MD Or senna-docusate (SENOKOT-S/PERICOLACE) 8.6-50 MG per tablet 2 tablet 2 tablet Oral BID Antonino Caceres MD 2 tablet at 05/26/24 1733 sodium chloride (PF) 0.9% PF flush 3 mL 3 mL Intracatheter q1 min prAntonino Zamudio MD 3 mL at 05/27/24 0914 sodium chloride 0.9% BOLUS 100-150 mL 100-150 mL Intravenous Q15 Min Alejandro Sykes MD Stop Heparin 60 minutes before end of treatment Does not apply Continuous PRN Alejandro Emerson MD Given at 05/30/24 0934 Allergies Allergen Reactions Dihydroxyaluminum Aminoacetate Nausea GI bleeding Aspirin GI Disturbance and Rash PN: LW Reaction: unknown Labs: BMP Recent Labs Lab 05/30/24 0713 05/30/24 0654 05/30/24 0218 05/29/24 2128 05/29/24 0754 05/29/24 0622 05/28/24 0748 05/28/24 0607 05/26/24 0822 05/26/24 0547 NA -- 133* -- -- -- 133* -- 136 -- 135 POTASSIUM -- 4.6 -- -- -- 4.0 -- 4.7 -- 4.4 CHLORIDE -- 97* -- -- -- 95* -- 98 -- 97* JON -- 8.7* -- -- -- 8.7* -- 8.7* -- 8.7* CO2 -- 24 -- -- -- 25 -- 22 -- 28 BUN -- 45.6* -- -- -- 30.7* -- 50.8* -- 30.0* CR -- 8.67* -- -- -- 6.71* -- 9.64* -- 5.84* GLC 82 83 138* 160* < > 87 < > 77 < > 88 < > = values in this interval not displayed. CBC Recent Labs Lab 05/30/24 0654 05/29/24 0622 05/28/24 0607 05/26/24 0547 05/24/24 0609 WBC 5.7 7.2 -- 8.2 8.2 HGB 7.4* 7.5* 7.7* 8.0* 9.1* HCT 25.0* 25.7* -- 27.0* 30.9* MCV 94 96 -- 93 94 PLT 165 183 -- 171 171 Lab Results Component Value Date AST 13 05/24/2024 ALT 19 05/24/2024 ALKPHOS 62 05/24/2024 BILITOTAL 0.5 05/24/2024 DARLINE <10 (L) 03/02/2024 Physical Exam: Vitals were reviewed in [facility] Wt Readings from Last 3 Encounters: 05/30/24 93.3 kg (205 lb 9.6 oz) 03/05/24 84.3 kg (185 lb 13.6 oz) 02/24/24 86.6 kg (190 lb 14.7 oz) Intake/Output Summary (Last 24 hours) at 05/30/2024 1154 Last data filed at 05/29/2024 1345 Gross per 24 hour Intake 586 ml Output -- Net 586 ml GENERAL APPEARANCE: pleasant, no distress, a [...] medications, labs and imaging. Alejandro Emerson MD [facility] Nephrology [phone] * Lynne Cárdenas RN - 05/30/2024 10:22 AM CDT Care Management Discharge Note Discharge Date: 05/30/2024 Discharge Disposition: Home Discharge Services: COSTING ANALYST, County Worker Discharge DME: Discharge Transportation: agency Private pay costs discussed: transportation costs Does the patient's insurance plan have a 3 day qualifying hospital stay waiver? No PAS Confirmation Code: Patient/family educated on Medicare website which has current facility and service quality ratings: Education Provided on the Discharge Plan: yes Persons Notified of Discharge Plans: patients aunt, mother and [facility] Patient/Family in Agreement with the Plan: yes Handoff Referral Completed: No Additional Information: Anticipated plan will be for discharge home today after dialysis. Contacted [facility] and updated them on the discharge plan. They will be in contact with patients aunt and mother to set up a visit tomorrow to teach the dressing changes. Discharge orders have been faxed to them. Contacted patients mother and updated her on the discharge plan. Aunt Thelma was unavailable at thetime of the call. Bedside RN may try to do a video teach prior to discharge if able to coordinate. Will send several days of dressing change supplies home with patient. WC transport set for [phone] today. Lynne Cárdenas RN BSN [facility] Health Education Aide [facility] [phone] * Abbie Ramirez RN - 05/30/2024 9:47 AM CDT DIALYSIS PROCEDURE NOTE Patient dialyzed for 3.5 hrs. on a K3 bath with a net fluid removal of 2L. A BFR of 430 ml/min was obtained via a AVF using 15 gauge needles. The treatment plan was discussed with Dr. Emerson during the treatment. Total heparin received during the treatment: 1.2 units. Needle cannulation sites held x 5 min. Meds given: epo [id number] Complications: none Person educated: patient. Barriers to learning: confusion. Educated on procedure via verbal mode. Patient verbalized understanding. ICEBOAT I: Patient was identified using 2 identifiers C: Consent Signed Yes E: Equipment preventative maintenance is current and dialysis delivery system OK to use B: Hepatitis B Surface result Latest Reference Range & Units 05/25/24 09:25 Hep B Surface Agn Nonreactive Nonreactive Hepatitis B Surface Antibody Instrument Value <8.5 m[IU]/mL >1,000.00 O: Dialysis orders present and complete prior to treatment A: Vascular access verified and assessed prior to treatment T: Treatment was performed at a clinically appropriate time ?: Patient was allowed to ask questions and address concerns prior to treatment Machine water alarm in place and functioning. Transducer pods intact and checked every 15min. Pt returned via wheelchair. Chlorine/Chloramine water system checked every 4 hours. Outpatient Dialysis at [facility] Patient repositioned every 4 hours during the treatment. Post treatment report given Please remove patient dressing on AVF and AVG needle sites 24 hours after dialysis. If leaking occurs please apply a Band-Aid. * Joann Marinelli, PT - 05/29/2024 2:14 PM CDT 05/29/24 1403 Appointment Info Signing Clinician's Name / Credentials (PT) Joann Marinelli DPSalvador Living Environment People in Home parent(s);other relative(s) Current Living Arrangements house Home Accessibility stairs to enter home;stairs within home Number of Stairs, Main Entrance 6 Stair Railings, Main Entrance railings safe and in good condition Number of Stairs, Within Home, Primary greater than 10 stairs Stair Railings, Within Home, Primary railings safe and in good condition Transportation Anticipated agency Living Environment Comments Pt is a poor historian. Per chart review he has a ramp into his home. Pt reports he lives in a home with his mom and aunt. 6 steps to enter then all needs met on main level. Walk in shower with grab bars, standard toilets. Self-Care Usual Activity Tolerance good Current Activity Tolerance fair Equipment Currently Used at Home walker, standard;other (see comments) Fall history within last six months no Activity/Exercise/Self-Care Comment Pt is a poor historian, reports he is independent with ADLS andmobility with a walker at baseline. Will need to confirm. General Information Onset of Illness/Injury or Date of Surgery 08/14/24 Referring Physician Isaiah Harding MD Patient/Family Therapy Goals Statement (PT) did not state a goal Pertinent History of Current Problem (include personal factors and/or [facility] Herminio Victor is a 59 year old male admitted on 05/23/2024. He presents with scrotal swelling, foul-smelling and radiological findings compatible with Jose's gangrene. Complicated past m edical history include: ESRD on hemodialysis, diabetes mellitus, history of DVT chronically anticoagulated on warfarin, cognitive impairment, diabetic retinopathy, blindness among others. Existing Precautions/Restrictions fall Cognition Follows Commands (Cognition) follows one-step commands;75-90% accuracy;physical/tactile prompts required;repetition of directions required;verbal cues/prompting required Pain Assessment Patient Currently in Pain No Integumentary/Edema Integumentary/Edema Comments see nursing notes Posture Posture Forward head position;Protracted shoulders Range of Motion (ROM) Range of Motion ROM is WFL Strength (Manual Muscle Testing) Strength (Manual Muscle Testing) Deficits observed during functional mobility Strength Comments at least 3/5 in BLEs with functional mobility Bed Mobility Comment, (Bed Mobility) not assessed Transfers Comment, (Transfers) sit<>stand with FWW and CGA Gait/Stairs (Locomotion) Comment, (Gait/Stairs) amb with FWW and CGA, mild unsteadiness Balance Balance Comments impaired; needing FWW and CGA Clinical Impression Criteria for Skilled Therapeutic Intervention Yes, treatment indicated PT Diagnosis (PT) impaired functional mobility Influenced by the following impairments weakness, deconditioning, impaired balance Functional limitations due to impairments difficulty with bed mobility, transfers, ambulation, stairs Clinical Presentation (PT Evaluation Complexity) stable Clinical Presentation Rationale clinical judgement Clinical Decision Making (Complexity) low complexity Planned Therapy Interventions (PT) balance training;bed mobility training;gait training;home exercise program;neuromuscular re-education;patient/family education;stair training;strengthening;transfertraining;progressive activity/exercise;risk factor education;home program guidelines Risk & Benefits of therapy have been explained evaluation/treatment results reviewed;care plan/treatment goals reviewed;risks/benefits reviewed;current/potential barriers reviewed;participants voiced agreement with care plan;participants included;patient PT Total Evaluation Time PT Eval, Low Complexity Minutes (03311) 10 Physical Therapy Goals PT Frequency 5x/week PT Predicted Duration/Target Date for Goal Attainment 06/02/24 PT Goals Bed Mobility;Transfers;Gait;Stairs PT: Bed Mobility Supervision/stand-by assist;Supine to/from sit PT: Transfers Supervision/stand-by assist;Sit to/from stand;Assistive device PT: Gait Supervision/stand-by assist;Assistive device;150 feet PT: Stairs Supervision/stand-by assist;6 stairs;Rail on right PT Discharge Planning PT Plan PT: progress safety with transfers and gait PT Discharge Recommendation (DC Rec) home with assist PT Rationale for DC Rec Patient appears mildly below/near baseline functional mobility. Pt lives with mother and aunt, reports MAGGIE but per chart appears to have ramp. Pt able to ambulate and completestairs wtih SBA-CGA using FWW this date. Anticipate with medical clearance that pt will be able to d/c home with assist of family and use of walker. PT Brief overview of current status A x 1 FWW Total Session Time Total Session Time (sum of timed and untimed services) 10 * Alejandro Emerson MD - 05/29/2024 1:45 PM CDT Planning dialysis tomorrow. Alejandro Emerson MD * Herminio Mckinley RN - 05/29/2024 12:05 PM CDT Images from the original note were not included. [facility] Nurse Inpatient Assessment Consulted for: Scrotum Summary: Significant improvement noted in wound. Tissue is granular and no longer has odor from wound. Patient History (according to provider note(s): Herminio Victor is a 59 year old male admitted on 05/23/2024. He presents with scrotal swelling,foul-smelling and radiological findings compatible with Jose's gangrene. 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 Assessment: Areas visualized during today's visit: Focused: Wound location: Scrotum Last photo: 05/29/24 Wound due to: Jose's Gangrene Wound history/plan of care: Patient with Jose's gangrene s/p debridement on 05/23/24. Wound base: 95 % granulation tissue, 5 % fibrin and slough Palpation of the wound bed: normal Drainage: moderate Description of drainage: serosanguinous Measurements (length x width x depth, in cm): 7 x 5 x 2.5 cm Tunneling: N/A Undermining: N/A Periwound skin: Intact Color: normal and consistent with surrounding tissue Temperature: normal Odor: none Pain: mild Pain interventions prior to dressing change: patient tolerated well and slow and gentle cares Treatment goal: Heal and Remove necrotic tissue STATUS: improving Supplies ordered: gathered Treatment Plan: Scrotum wound(s): BID Cleanse with Vashe Pack with Vashe moistened kerlix fluff Cover with ABD Orders: Reviewed RECOMMEND PRIMARY TEAM ORDER: None, at this time Education provided: plan of care and Infection prevention Discussed plan of care with: Patient and Nurse WOC nurse follow-up plan: weekly Notify WOC if wound(s) deteriorate. Nursing to notify the Provider(s) and re-consult the WOC Nurse if new skin concern. DATA: Current support surface: Standard Standard Isoflex gel Containment of urine/stool: Anuric and Incontinence Protocol BMI: Body mass index is 31.79 kg/m??. Active diet order: Orders Placed This Encounter Renal Diet (dialysis) Output: I/O last 3 completed shifts: In: 900 [P.O.:900] Out: 1999 [Other:1999] Labs: Recent Labs Lab 05/29/24 0622 05/24/24 1416 05/24/24 0609 ALBUMIN -- -- 3.0* HGB 7.5* < > 9.1* INR 1.92* < > 1.14 WBC 7.2 < > 8.2 < > = values in this interval not displayed. Pressure injury risk assessment: Sensory Perception: (P) 4-->no impairment Moisture: (P) 4-->rarely moist Activity: (P) 3-->walks occasionally Mobility: (P) 3-->slightly limited Nutrition: (P) 3-->adequate Friction and Shear: (P) 3-->no apparent problem Jay Score: (P) 20 Herminio Mckinley RN CWOCN Contact Via [employer]- [facility] Nurse (Sherry) Dept. Office Number: [phone] * Charles Mcneal MD - 05/29/2024 10:33 AM CDT [facility] Medicine Progress Note - Hospitalist Service Date of Admission: 05/23/2024 Reason for hospitalization Jose's gangrene, Assessment & Plan Herminio Victor is a 59 year old male admitted on 05/23/2024. He presents with scrotal swelling,foul-smelling and radiological findings compatible with Jose's gangrene. 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 Jose's gangrene, ID recommended to continue Zosyn and antibiotics to continue until 05/30 End-stage renal disease on hemodialysis Tuesday, Tuesday, Tuesday Diabetes mellitus type 2 Cognitive deficits Anemia History of DVT on chronic anticoagulation in the form of warfarin Hypertension Legally blind Plan -Dialysis diet -O2 as needed sat 94% or > --Zosyn IV per ID plan -one more day and change to po -Urology consulted. -Nephrology consulted. -Infectious disease consulted. -INR reversed. Surgery completed 05/23. -Incision and drainage of scrotal abscess, debridement of scrotal skin and subcutaneous tissues . -Continue to monitor leukocytosis. -WOC RN consulted for cures/dressing management. -Pain with Dilaudid and nausea management per protocol. -PCD's Diet: Renal Diet (dialysis) DVT Prophylaxis: Pneumatic Compression Devices Valadez Catheter: Not present Lines: None Cardiac Monitoring: None Code Status: Full Code Clinically Significant Risk Factors # Hypoalbuminemia: Lowest albumin = 3 g/dL at 05/24/2024 6:09 AM, will monitor as appropriate # Obesity: Estimated body mass index is 31.79 kg/m?? as calculated from the following: Height as of this encounter: 1.626 m (5' 4). Weight as of this encounter: 84 kg (185 lb 3 oz). Disposition Plan Medically Ready for Discharge: Anticipated in 2-4 Days Charles Mcneal MD Hospitalist Service [facility] Securely message with [employer] (more info) Text page via [facility] Paging/Directory Interval History Patient care assumed by me this morning. Patient denies any new symptoms. No fever or chills. Woundexamined Current Facility-Administered Medications: - MEDICATION INSTRUCTIONS for Dialysis Patients -, , Does not apply, See Admin Instructions, Antonino Cheek MD calcium acetate (PHOSLO) capsule 667 mg, 667 mg, Oral, TID w/meals, Antonino Cheek MD, 667 mg at05/29/24 0939 calcium carbonate (TUMS) chewable tablet 1,000 mg, 1,000 mg, Oral, 4x Daily PRN, Antonino Cheek MD glucose gel 15-30 g, 15-30 g, Oral, Q15 Min PRN OR dextrose 50 % injection 25-50 mL, 25-50 mL, Intravenous, Q15 Min PRN OR glucagon injection 1 mg, 1 mg, Subcutaneous, Q15 Min PRN, Antonino Cheek MD HYDROmorphone (DILAUDID) injection 0.2-0.4 mg, 0.2-0.4 mg, Intravenous, Q2H PRN, Antonino Cheek MD, 0.2 mg at 05/25/24 0844 insulin aspart (NovoLOG) injection (RAPID ACTING), 1-7 Units, Subcutaneous, TID AC, Antonino Cheek MD, 3 Units at 05/28/24 1832 insulin aspart (NovoLOG) injection (RAPID ACTING), 1-5 Units, Subcutaneous, At Bedtime, Antonino Cheek MD lidocaine (LMX4) cream, , Topical, Q1H PRN, Antonino Cheek MD lidocaine 1 % 0.1-1 mL, 0.1-1 mL, Other, Q1H PRN, Antonino Cheek MD metoprolol tartrate (LOPRESSOR) tablet 100 mg, 100 mg, Oral, QAM, Antonino Cheek MD, 100 mg at 05/29/24 0939 naloxone (NARCAN) injection 0.2 mg, 0.2 mg, Intravenous, Q2 Min PRN OR naloxone (NARCAN) injection 0.4 mg, 0.4 mg, Intravenous, Q2 Min PRN OR naloxone (NARCAN) injection 0.2 mg, 0.2 mg, Intramuscular, Q2 Min PRN OR naloxone (NARCAN) injection 0.4 mg, 0.4 mg, Intramuscular, Q2 Min PRN, Antonino Cheek MD ondansetron (ZOFRAN) injection 4 mg, 4 mg, Intravenous, Q6H PRN, Antonino Cheek MD, 4 mg at 05/24/24 1458 pantoprazole (PROTONIX) EC tablet 40 mg, 40 mg, Oral, QAM AC, Antonino Cheek MD, 40 mg at 05/29/24 0939 piperacillin-tazobactam (ZOSYN) 2.25 g vial to attach to NS 100 ml bag, 2.25 g, Intravenous, Q8H, Antonino Cheek MD, 2.25 g at 05/29/24 0535 senna-docusate (SENOKOT-S/PERICOLACE) 8.6-50 MG per tablet 1 tablet, 1 tablet, Oral, BID PRN ORsenna-docusate (SENOKOT-S/PERICOLACE) 8.6-50 MG per tablet 2 tablet, 2 tablet, Oral, BID PRN, Antonino Cheek MD, 2 tablet at 05/26/24 1733 sennosides (SENOKOT) tablet 2 tablet, 2 tablet, Oral, Every Other Day, Antonino Cheek MD, 2 tablet at 05/28/24 0805 sodium chloride (PF) 0.9% PF flush 3 mL, 3 mL, Intracatheter, Q8H, Antonino Cheek MD, 3 mL at 05/29/24 0535 sodium chloride (PF) 0.9% PF flush 3 mL, 3 mL, Intracatheter, q1 min prn, Antonino Cheek MD, 3 mL at 05/27/24 0914 vitamin B complex with vitamin C (STRESS TAB) tablet 1 tablet, 1 tablet, Oral, QPM, Antonino Cheek MD, 1 tablet at 05/28/24 2049 warfarin ANTICOAGULANT (COUMADIN) tablet 4 mg, 4 mg, Oral, ONCE at 18:00, Charles Mcneal MD Warfarin Dose Required Daily - Pharmacist Managed, 1 each, Oral, See Admin Instructions, Antonino Cheek MD Facility-Administered Medications Ordered in Other Encounters: heparin 100 UNIT/ML Lock Flush SOLN, , , , Physical Exam Vital Signs: Temp: 98.3 ??F (36.8 ??C) Temp src: Oral BP: (!) 143/57 Pulse: 81 Resp: 14 SpO2: 100 %O2 Device: None (Room air) Weight: 185 lbs 2.98 oz GEN: Alert, oriented x 3, appears comfortable, NAD. HEENT: Normocephalic/atraumatic, no scleral icterus, no nasal discharge, mouth moist. CV: Regular rate and rhythm, YARA II/ murmur LSB. S1 + S2 noted, no S3 or S4. LUNGS: Clear to auscultation bilaterally without rales/rhonchi/wheezing/retractions. Symmetric chest rise on inhalation noted. ABD: Active bowel sounds, soft, non-tender/non-distended. No rebound/guarding/rigidity. BRITTANY: dressing to the scrotal wounds, pus discharge on the dressing. EXT: No edema or cyanosis. No joint synovitis noted. SKIN: Dry to touch, no exanthems noted in the visualized areas. Medical Decision Making Home with Home health care Data CBC RESULTS: Recent Labs Lab Test 05/26/24 0547 WBC 8.2 RBC 2.89* HGB 8.0* HCT 27.0* MCV 93 MCH 27.7 MCHC 29.6* RDW 20.4* PLT 171 Last Comprehensive Metabolic Panel: Lab Results Component Value Date NA 133 (L) 05/29/2024 POTASSIUM 4.0 05/29/2024 CHLORIDE 95 (L) 05/29/2024 CO2 25 05/29/2024 ANIONGAP 13 05/29/2024 GLC 90 05/29/2024 BUN 30.7 (H) 05/29/2024 CR 6.71 (H) 05/29/2024 GFRESTIMATED 9 (L) 05/29/2024 JON 8.7 (L) 05/29/2024 INR Date Value Ref Range Status 05/29/2024 1.92 (H) 0.85 - 1.15 Final 03/18/2020 2.97 (H) 0.86 - 1.14 Final * Poppy Bernardo PA-C - 05/29/2024 10:30 AM CDT [facility] Urology Progress Note Assessment and Plan: Assessment: POD 6 debridement of scrotal skin and subcutaneous tissues for necrotizing soft tissue infection, Jose's gangrene Supratherapeutic INR Jose's gangrene of scrotum (H28) End-stage renal disease on hemodialysis Tuesday, Tuesday, Tuesday Diabetes mellitus type 2 Cognitive deficits Anemia History of DVT on chronic anticoagulation in the form of warfarin Hypertension Legally blind Plan: -Continue with antibiotics per ID. IV Zosyn for total of 7 days or Cipro and Augmentin to total 7 days if discharge before then. -Appreciate [facility] recommendations for wound dressing. -Nephrology consult given patient's end-stage renal disease on hemodialysis. -No further urological surgical intervention at this time. -Will follow peripherally. Okay to discharge from urology perspective on antibiotics and with arrangements made for dressing changes. Poppy Bernardo PA-C [facility] Urology [phone] Interval History: Denies pain. INR 1.92. WBC 7.2 Cultures grew out 1+ Morganella morganii. On IV Zosyn. Feels okay. Review of Systems: The 5 point Review of Systems is negative other than noted in the HPI Medications: Current Facility-Administered Medications Medication Dose Route Frequency Provider Last Rate Last Admin - MEDICATION INSTRUCTIONS for Dialysis Patients - Does not apply See Admin Instructions Antonino Cheek MD calcium acetate (PHOSLO) capsule 667 mg 667 mg Oral TID w/meals Antonino Cheek MD 667 mg at 05/29/24 0939 calcium carbonate (TUMS) chewable tablet 1,000 mg 1,000 mg Oral 4x Daily PRN Antonino Cheek MD glucose gel 15-30 g 15-30 g Oral Q15 Min PRN Antonino Cheek MD Or dextrose 50 % injection 25-50 mL 25-50 mL Intravenous Q15 Min PRN Antonino Cheek MD Or glucagon injection 1 mg 1 mg Subcutaneous Q15 Min PRN Antonino Cheek MD HYDROmorphone (DILAUDID) injection 0.2-0.4 mg 0.2-0.4 mg Intravenous Q2H PRN Antonino Cheek MD 0.2 mg at 05/25/24 0844 insulin aspart (NovoLOG) injection (RAPID ACTING) 1-7 Units Subcutaneous TID AC Antonino Cheek MD 3 Units at 05/28/24 1832 insulin aspart (NovoLOG) injection (RAPID ACTING) 1-5 Units Subcutaneous At Bedtime Antonino Cheek MD lidocaine (LMX4) cream Topical Q1H PRN Antonino Cheek MD lidocaine 1 % 0.1-1 mL 0.1-1 mL Other Q1H PRN Antonino Cheek MD metoprolol tartrate (LOPRESSOR) tablet 100 mg 100 mg Oral QAM Antonino Cheek MD 100 mg at 05/29/24 0939 naloxone (NARCAN) injection 0.2 mg 0.2 mg Intravenous Q2 Min PRN Antonino Cheek MD Or naloxone (NARCAN) injection 0.4 mg 0.4 mg Intravenous Q2 Min PRN Antonino Cheek MD Or naloxone (NARCAN) injection 0.2 mg 0.2 mg Intramuscular Q2 Min PRAntonino Zamudio MD Or naloxone (NARCAN) injection 0.4 mg 0.4 mg Intramuscular Q2 Min PRN Antonino Cheek MD ondansetron (ZOFRAN) injection 4 mg 4 mg Intravenous Q6H PRN Antonino Cheek MD 4 mg at 05/24/24 1458 pantoprazole (PROTONIX) EC tablet 40 mg 40 mg Oral QAM AC Antonino Cheek MD 40 mg at 05/29/24 0939 piperacillin-tazobactam (ZOSYN) 2.25 g vial to attach to NS 100 ml bag 2.25 g Intravenous Q8H Antonino Cheek MD 2.25 g at 05/29/24 0535 senna-docusate (SENOKOT-S/PERICOLACE) 8.6-50 MG per tablet 1 tablet 1 tablet Oral BID PRN Antonino Cheek MD Or senna-docusate (SENOKOT-S/PERICOLACE) 8.6-50 MG per tablet 2 tablet 2 tablet Oral BID PRN Antonino Cheek MD 2 tablet at 05/26/24 1733 sennosides (SENOKOT) tablet 2 tablet 2 tablet Oral Every Other Day Antonino Cheek MD 2 tablet at05/28/24 0805 sodium chloride (PF) 0.9% PF flush 3 mL 3 mL Intracatheter Q8H Antonino Cehek MD 3 mL at 05/29/24 0535 sodium chloride (PF) 0.9% PF flush 3 mL 3 mL Intracatheter q1 min prn Antonino Cheek MD 3 mL at 05/27/24 0914 vitamin B complex with vitamin C (STRESS TAB) tablet 1 tablet 1 tablet Oral QPM Antonino Cheek MD 1 tablet at 05/28/24 2049 warfarin ANTICOAGULANT (COUMADIN) tablet 4 mg 4 mg Oral ONCE at 18:00 Charles Mcneal MD Warfarin Dose Required Daily - Pharmacist Managed 1 each Oral See Admin Instructions García Cheek MD Facility-Administered Medications Ordered in Other Encounters Medication Dose Route Frequency Provider Last Rate Last Admin heparin 100 UNIT/ML Lock Flush SOLN Physical Exam: Vitals were reviewed Patient Vitals for the past 8 hrs: BP Temp Temp src Pulse Resp SpO2 05/29/24 0756 (!) 143/57 98.3 ??F (36.8 ??C) Oral 81 14 100 % GEN: NAD, lying in bed MOUTH: MMM NECK: Supple RESP: Unlabored breathing NEURO: AAO Data: No results found for: NTBNPI, NTBNP Lab Results Component Value Date WBC 7.2 05/29/2024 WBC 8.2 05/26/2024 WBC 8.2 05/24/2024 HGB 7.5 (L) 05/29/2024 HGB 7.7 (L) 05/28/2024 HGB 8.0 (L) 05/26/2024 HCT 25.7 (L) 05/29/2024 HCT 27.0 (L) 05/26/2024 HCT 30.9 (L) 05/24/2024 MCV 96 05/29/2024 MCV 93 05/26/2024 MCV 94 05/24/2024 PLT 183 05/29/2024 PLT 171 05/26/2024 PLT 171 05/24/2024 Lab Results Component Value Date INR 1.92 (H) 05/29/2024 INR 1.87 (H) 05/28/2024 INR 1.81 (H) 05/27/2024 All cultures: Recent Labs Lab 05/23/24 1842 05/23/24 1350 CULTURE 1+ Morganella morganii* 1+ Morganella morganii* 1+ Normal dev 4+ Mixed Aerobic and Anaerobic dev See corresponding culture for results No Growth * Lynne Cárdenas RN - 05/29/2024 9:58 AM CDT Care Management Follow Up Length of Stay (days): 6 Expected Discharge Date: 06/01/2024 Concerns to be Addressed: elopement Patient plan of care discussed at interdisciplinary rounds: Yes Anticipated Discharge Disposition: Home/ Home Care Anticipated Discharge Services: COSTING ANALYST, County Worker Anticipated Discharge DME: Patient/family educated on Medicare website which has current facility and service quality ratings: Education Provided on the Discharge Plan: yes Patient/Family in Agreement with the Plan: yes Referrals Placed by CM/SW: Home Care Private pay costs discussed: transportation costs Additional Information: Contacted patients aunsalvador Renee who is his COSTING ANALYST at home regarding receiving education on groin dressing changes. Patients mother or Aunt will not be able to come to the hospital for dressing change instructions as they do not have transportation. Per CM notes [facility] is able to accommodate a next day teach in the home.Will notify them when CM has received clear discharge date. Addendum 1150: MD anticipates possible discharge ready tomorrow after dialysis. Contacted [facility] andthey confirm that they can do a next day visit to provide wound care teaching. If patient discharges tomorrow they will see on . Will need to send home with several days of dressing change supplies and do second dressing change tomorrow prior to discharge. [facility] [place] transportation set up in anticipation of discharge tomorrow as [employer] is unableto provide short notice transportation. WC set up for 05/30 1984-1742 Patients aunt Thelma does have an ipad at home, will check with bedside RN to see if their is possibility of a video teach of wound care. Lynen Cárdenas CUSTOMER EXPERIENCE SPECIALIST [facility] Health Education Aide [facility] [phone] * Rand Chappell OTR - 05/28/2024 3:58 PM CDT 05/28/24 1500 Appointment Info Signing Clinician's Name / Credentials (OT) KIRSTIN Mejía Living Environment People in Home parent(s);other relative(s) (Mom and aunt) Current Living Arrangements house Home Accessibility stairs to enter home;stairs within home Number of Stairs, Main Entrance 6 Stair Railings, Main Entrance railings safe and in good condition Number of Stairs, Within Home, Primary greater than 10 stairs Stair Railings, Within Home, Primary railings safe and in good condition Living Environment Comments Pt is a poor historian. Per chart reveiw he has a ramp into his home. Pt reports he lives [place] with his mom and aunt. 6 steps to enter then all needs met on main level. Walk in shower with grab bars, standard toilets Self-Care Usual Activity Tolerance good Current Activity Tolerance fair Equipment Currently Used at Home walker, standard;other (see comments) (ramp) Fall history within last six months no Activity/Exercise/Self-Care Comment Pt is a poor historian, reports he is independent with ADLS andmobility with a walker at baseline. Will need to confirm Instrumental Activities of Daily Living (IADL) IADL Comments Pt family assist with all IADLs at [facility] due to vision impairment General Information Onset of Illness/Injury or Date of Surgery 05/23/24 Referring Physician Isaiah Harding MD Patient/Family Therapy Goal Statement (OT) Patient would like to discharge home Additional Occupational Profile Info/Pertinent History of Current Problem 59 year old male admittedon 05/23/2024. He presents with scrotal swelling, foul- smelling and radiological findings compatiblewith Jose's gangrene. Complicated past medical history include: ESRD on hemodialysis, diabetes m ellitus, history of DVT chronically anticoagulated on warfarin, cognitive impairment, diabetic retinopathy, blindness among others. Jose's gangrene, ID recommended to continue Zosyn and antibiotics to continue until 05/30 End- stage renal disease on hemodialysis Tuesday, Tuesday, Tuesday Diabetes mellitus type 2 Cognitive deficits Anemia History of DVT on chronic anticoagulation in the form ofwarfarin Hypertension Legally blind Existing Precautions/Restrictions fall Limitations/Impairments safety/cognitive;visual;sensory Cognitive Status Examination Orientation Status person;place (Oriented to year, logical cues for date) Follows Commands WFL Memory Deficit moderate deficit Attention Deficit moderate deficit Cognitive Status Comments Pt has known cognitive impairment at baseline. Family assist with cognitive tasks at baseline. Pt reports feeling like his attention is worse since infection Visual Perception Impact of Vision Impairment on Function (Vision) Pt has diabetic retinopathy, able to see outlines of shapes but not details Sensory Sensory Comments BLE neuropathy at baseline Pain Assessment Patient Currently in Pain No Posture Posture forward head position;protracted shoulders Range of Motion Comprehensive Comment, General Range of Motion WFL Strength Comprehensive (MMT) Comment, General Manual Muscle Testing (MMT) Assessment Decline in activity tolerance Bed Mobility Comment (Bed Mobility) SBA Transfers Transfer Comments CGA Balance Balance Comments Mild impairment in standing Activities of Daily Living BADL Assessment/Intervention bathing;lower body dressing;grooming;toileting Bathing Assessment/Intervention Comment, (Bathing) Min assist per clinical reasoning Lower Body Dressing Assessment/Training Comment, (Lower Body Dressing) Min assist Grooming Assessment/Training Comment, (Grooming) Decline in tolerance for activity in standing Toileting Comment, (Toileting) CGA Clinical Impression Criteria for Skilled Therapeutic Interventions Met (OT) Yes, treatment indicated OT Diagnosis Decline in ADL indpeendence ands afety Influenced by the following impairments Scrotal infection OT Problem List-Impairments impacting ADL problems related to;activity tolerance impaired;balance;cognition;mobility;strength;vision Assessment of Occupational Performance 3-5 Performance Deficits Identified Performance Deficits Impaired dressing bathing and toileting with declien in activity tolernace needed for grooming Planned Therapy Interventions (OT) ADL retraining;cognition;progressive activity/exercise Clinical Decision Making Complexity (OT) problem focused assessment/low complexity Risk & Benefits of therapy have been explained evaluation/treatment results reviewed;care plan/treatment goals reviewed;risks/benefits reviewed;participants voiced agreement with care plan;current/potential barriers reviewed;participants included;patient OT Total Evaluation Time OT Eval, Low Complexity Minutes (77852) 9 OT Goals Therapy Frequency (OT) Daily OT Predicted Duration/Target Date for Goal Attainment 06/06/24 OT Goals Hygiene/Grooming;Lower Body Dressing;Lower Body Bathing;Toilet Transfer/Toileting;Cognition OT: Hygiene/Grooming modified independent;using adaptive equipment;while standing OT: Lower Body Dressing Modified independent;using adaptive equipment;including set-up/clothing retrieval OT: Lower Body Bathing Modified independent;using adaptive equipment OT: Toilet Transfer/Toileting Modified independent;toilet transfer;cleaning and garment management;using adaptive equipment OT: Cognitive Patient/caregiver will verbalize understanding of cognitive assessment results/recommendations as needed for safe discharge planning Self-Care/Home Management Self-Care/Home Mgmt/ADL, Compensatory, Meal Prep Minutes ([id number]) 31 Symptoms Noted During/After Treatment (Meal Preparation/Planning Training) fatigue Treatment Detail/Skilled Intervention Ot; Pt agreeabel to therapy. Supine ot sit with cues for technique. Pt completed sit to stand EOB with cues for walker positioning and hand placement. Pt completed sit t ostand with CGA. Pt required cuing for vision and CGA to navigate to bathroom. Pt compeltedtoielt transfer with cues for alignment and CGA. Pt completed g/h at sink with set up assist and cues for walker placement for safety. Pt returned to chair. Seated in chair, pt educated onfigure four, pt reports this position is painful, unable to compelte requring minassist to thread socks on initially. Pt offered gentle reorientation to improve delirium. Pt in chair with alarm onand call ight upon OT departure OT Discharge Planning OT Plan g/h at sink, toilet transfer, LE dressing, shower transfer OT Discharge Recommendation (DC Rec) home with assist;home with home care occupational therapy OT Rationale for DC Rec Patient appears safe and able todischarge home with intermittent assist from family with higher level IADLS (just like baseline). Pt would beenfit from HHOT to progress ADL tolerance OT Brief overview of current status Min assist LE dressing * Charles Mcneal MD - 05/28/2024 3:23 PM CDT [facility] Medicine Progress Note - Hospitalist Service Date of Admission: 05/23/2024 Reason for hospitalization Jose's gangrene, Assessment & Plan Herminio Victor is a 59 year old male admitted on 05/23/2024. He presents with scrotal swelling,foul-smelling and radiological findings compatible with Jose's gangrene. 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 Jose's gangrene, ID recommended to continue Zosyn and antibiotics to continue until 05/30 End-stage renal disease on hemodialysis Tuesday, Tuesday, Tuesday Diabetes mellitus type 2 Cognitive deficits Anemia History of DVT on chronic anticoagulation in the form of warfarin Hypertension Legally blind Plan -Dialysis diet -O2 as needed sat 94% or > --Zosyn IV per ID plan -Urology consulted. -Nephrology consulted. -Infectious disease consulted. -INR reversed. Surgery completed 05/23. -Incision and drainage of scrotal abscess, debridement of scrotal skin and subcutaneous tissues . -Continue to monitor leukocytosis. -WOC RN consulted for cures/dressing management. -Pain with Dilaudid and nausea management per protocol. -PCD's Diet: Renal Diet (dialysis) DVT Prophylaxis: Pneumatic Compression Devices Valadez Catheter: Not present Lines: None Cardiac Monitoring: None Code Status: Full Code Clinically Significant Risk Factors # Hypoalbuminemia: Lowest albumin = 3 g/dL at 05/24/2024 6:09 AM, will monitor as appropriate # Obesity: Estimated body mass index is 31.79 kg/m?? as calculated from the following: Height as of this encounter: 1.626 m (5' 4). Weight as of this encounter: 84 kg (185 lb 3 oz). Disposition Plan Medically Ready for Discharge: Anticipated in 5+ Days Charles Mcneal MD Hospitalist Service [facility] Securely message with [employer] (more info) Text page via [facility] Paging/Directory Interval History Patient care assumed by me this morning. Patient denies any new symptoms. No fever or chills. Dialysis was in progress when I visited the patient. Current Facility-Administered Medications: - MEDICATION INSTRUCTIONS for Dialysis Patients -, , Does not apply, See Admin Instructions, Antonino Cheek MD calcium acetate (PHOSLO) capsule 667 mg, 667 mg, Oral, TID w/meals, Antonino Cheek MD, 667 mg at05/28/24 1443 calcium carbonate (TUMS) chewable tablet 1,000 mg, 1,000 mg, Oral, 4x Daily PRN, Antonino Cheek MD glucose gel 15-30 g, 15-30 g, Oral, Q15 Min PRN OR dextrose 50 % injection 25-50 mL, 25-50 mL, Intravenous, Q15 Min PRN OR glucagon injection 1 mg, 1 mg, Subcutaneous, Q15 Min PRN, Antonino Cheek MD HYDROmorphone (DILAUDID) injection 0.2-0.4 mg, 0.2-0.4 mg, Intravenous, Q2H PRN, Antonino Cheek MD, 0.2 mg at 05/25/24 0844 insulin aspart (NovoLOG) injection (RAPID ACTING), 1-7 Units, Subcutaneous, TID Ham ALEXANDRE Jesus F, MD, 1 Units at 05/27/24 1715 insulin aspart (NovoLOG) injection (RAPID ACTING), 1-5 Units, Subcutaneous, At Bedtime, Antonino Cheek MD lidocaine (LMX4) cream, , Topical, Q1H PRN, Antonino Cheek MD lidocaine 1 % 0.1-1 mL, 0.1-1 mL, Other, Q1H PRN, Antonino Cheek MD metoprolol tartrate (LOPRESSOR) tablet 100 mg, 100 mg, Oral, QAM, Antonino Cheek MD, 100 mg at 05/28/24 0805 naloxone (NARCAN) injection 0.2 mg, 0.2 mg, Intravenous, Q2 Min PRN OR naloxone (NARCAN) injection 0.4 mg, 0.4 mg, Intravenous, Q2 Min PRN OR naloxone (NARCAN) injection 0.2 mg, 0.2 mg, Intramuscular, Q2 Min PRN OR naloxone (NARCAN) injection 0.4 mg, 0.4 mg, Intramuscular, Q2 Min PRN, Antonino Cheek MD ondansetron (ZOFRAN) injection 4 mg, 4 mg, Intravenous, Q6H PRN, Antonino Cheek MD, 4 mg at 05/24/24 1458 pantoprazole (PROTONIX) EC tablet 40 mg, 40 mg, Oral, QAM Ham ALEXANDRE Jesus F, MD, 40 mg at 05/28/24 0805 piperacillin-tazobactam (ZOSYN) 2.25 g vial to attach to NS 100 ml bag, 2.25 g, Intravenous, Q8H, Antonino Cheek MD, 2.25 g at 05/28/24 1419 senna-docusate (SENOKOT-S/PERICOLACE) 8.6-50 MG per tablet 1 tablet, 1 tablet, Oral, BID PRN ORsenna-docusate (SENOKOT-S/PERICOLACE) 8.6-50 MG per tablet 2 tablet, 2 tablet, Oral, BID PRN, Antonino Cheek MD, 2 tablet at 05/26/24 1733 sennosides (SENOKOT) tablet 2 tablet, 2 tablet, Oral, Every Other Day, Antonino Cheek MD, 2 tablet at 05/28/24 0805 sodium chloride (PF) 0.9% PF flush 3 mL, 3 mL, Intracatheter, Q8H, Antonino Cheek MD, 3 mL at 05/28/24 1419 sodium chloride (PF) 0.9% PF flush 3 mL, 3 mL, Intracatheter, q1 min prn, Antonino Cheek MD, 3 mL at 05/27/24 0914 vitamin B complex with vitamin C (STRESS TAB) tablet 1 tablet, 1 tablet, Oral, QPM, Antonino Cheek MD, 1 tablet at 05/27/24 1920 warfarin ANTICOAGULANT (COUMADIN) tablet 4 mg, 4 mg, Oral, ONCE at 18:00, Charles Mcneal MD Warfarin Dose Required Daily - Pharmacist Managed, 1 each, Oral, See Admin Instructions, Antonino Cheek MD Facility-Administered Medications Ordered in Other Encounters: heparin 100 UNIT/ML Lock Flush SOLN, , , , Physical Exam Vital Signs: Temp: 98.5 ??F (36.9 ??C) Temp src: Oral BP: 136/53 Pulse: 74 Resp: 12 SpO2: 99 % O2 Device: None (Room air) Weight: 185 lbs 2.98 oz GEN: Alert, oriented x 3, appears comfortable, NAD. HEENT: Normocephalic/atraumatic, no scleral icterus, no nasal discharge, mouth moist. CV: Regular rate and rhythm, YARA II/ murmur LSB. S1 + S2 noted, no S3 or S4. LUNGS: Clear to auscultation bilaterally without rales/rhonchi/wheezing/retractions. Symmetric chest rise on inhalation noted. ABD: Active bowel sounds, soft, non-tender/non-distended. No rebound/guarding/rigidity. BRITTANY: dressing to the scrotal wounds, pus discharge on the dressing. EXT: No edema or cyanosis. No joint synovitis noted. SKIN: Dry to touch, no exanthems noted in the visualized areas. Medical Decision Making Home with Home health care Data CBC RESULTS: Recent Labs Lab Test 05/26/24 0547 WBC 8.2 RBC 2.89* HGB 8.0* HCT 27.0* MCV 93 MCH 27.7 MCHC 29.6* RDW 20.4* PLT 171 Last Comprehensive Metabolic Panel: Lab Results Component Value Date NA 136 05/28/2024 POTASSIUM 4.7 05/28/2024 CHLORIDE 98 05/28/2024 CO2 22 05/28/2024 ANIONGAP 16 (H) 05/28/2024 GLC 91 05/28/2024 BUN 50.8 (H) 05/28/2024 CR 9.64 (H) 05/28/2024 GFRESTIMATED 6 (L) 05/28/2024 JON 8.7 (L) 05/28/2024 INR Date Value Ref Range Status 05/28/2024 1.87 (H) 0.85 - 1.15 Final 03/18/2020 2.97 (H) 0.86 - 1.14 Final * Cintia Valadez RN - 05/28/2024 11:39 AM CDT Potassium Date Value Ref Range Status 05/28/2024 4.7 3.4 - 5.3 mmol/L Final 01/24/2018 4.3 3.4 - 5.3 mmol/L Final Hemoglobin Date Value Ref Range Status 05/28/2024 7.7 (L) 13.3 - 17.7 g/dL Final 01/24/2018 8.2 (L) 13.3 - 17.7 g/dL Final Creatinine Date Value Ref Range Status 05/28/2024 9.64 (H) 0.67 - 1.17 mg/dL Final 01/25/2019 9.17 (H) 0.66 - 1.25 mg/dL Final Urea Nitrogen Date Value Ref Range Status 05/28/2024 50.8 (H) 8.0 - 23.0 mg/dL Final 01/24/2018 78 (H) 7 - 30 mg/dL Final Sodium Date Value Ref Range Status 05/28/2024 136 135 - 145 mmol/L Final 01/24/2018 131 (L) 133 - 144 mmol/L Final INR Date Value Ref Range Status 05/28/2024 1.87 (H) 0.85 - 1.15 Final 03/18/2020 2.97 (H) 0.86 - 1.14 Final DIALYSIS PROCEDURE NOTE Hepatitis status of previous patient on machine log was checked and verified ok to use with this patients hepatitis status. Patient dialyzed for 3.5 hrs. on a K2 bath with a net fluid removal of 2L. A BFR of 450 ml/min was obtained via a LLE AVF using 15 gauge needles. The treatment plan was discussed with Dr. Emerson during the treatment. Total heparin received during the treatment: 1700 units. Needle cannulation sites held x 5 min. Meds given: EPO, Venofer, Heparin Complications: none Person educated: Patient. Knowledge base adequate. Barriers to learning: none. Educated on procedure via verbal mode. Patient verbalized understanding. ICEBOAT? Timeout performed pre-treatment I: Patient was identified using 2 identifiers C: Consent Signed Yes E: Equipment preventative maintenance is current and dialysis delivery system OK to use B: Latest Reference Range & Units 05/25/24 09:25 Hep B Surface Agn Nonreactive Nonreactive Hepatitis [...] to treatment See Adult Hemodialysis flowsheet in Trunk Archive for further details and post assessment. Machine water alarm in place and functioning. Transducer pods intact and checked every 15min. Pt assisted with repositioning throughout dialysis treatment. Pt returned via bed. Chlorine/Chloramine water system checked every 4 hours. Outpatient Dialysis at [facility] Post treatment report given to LINDA Saini regarding 2L of fluid removed, last BP 137/54. Please remove patient dressing on AVF and AVG needle sites 24 hours after dialysis. If leaking occurs please apply a Band-Aid. Cintia Valadez RN * Poppy Bernardo PA-C - 05/28/2024 11:00 AM CDT [facility] Urology Progress Note Assessment and Plan: Assessment: POD 5 debridement of scrotal skin and subcutaneous tissues for necrotizing soft tissue infection, Jose's gangrene Supratherapeutic INR Jose's gangrene of scrotum (H28) End-stage renal disease on hemodialysis Tuesday, Tuesday, Tuesday Diabetes mellitus type 2 Cognitive deficits Anemia History of DVT on chronic anticoagulation in the form of warfarin Hypertension Legally blind Plan: -Okay for a diet today. Appears to have no area needing repeat surgical debridement at this time. -Continue with antibiotics per ID. IV Zosyn for total of 7 days or Cipro and Augmentin to total 7 days if discharge before then. -Will continue with serial scrotal examinations. -Appreciate [facility] recommendations for wound dressing. -Nephrology consult given patient's end-stage renal disease on hemodialysis. -No further urological surgical intervention at this time. -Will follow peripherally. Okay to discharge from urology perspective on antibiotics and with arrangements made for dressing changes. Poppy Bernardo PA-C [facility] [phone] Interval History: Hemodialysis today. Patient is afebrile with without tachycardia. INR 1.87. Cultures grew out 1+ Morganella morganii. On IV Zosyn. Circumcised phallus. No eschar or crepitus. Still having small amount of purulent drainage in conjunction with serosanguineous drainage. Nontender. Good granulation tissue starting. EXE: Left thigh fistula with palpable thrill. [...] w/meals Antonino Cheek MD 667 mg at 05/28/24 1443 calcium carbonate (TUMS) chewable tablet 1,000 mg 1,000 mg Oral 4x Daily PRN Antonino Cheek MD glucose gel 15-30 g 15-30 g Oral Q15 Min PRN Antonino Cheek MD Or dextrose 50 % injection 25-50 mL 25-50 mL Intravenous Q15 Min PRN Antonino Cheek MD Or glucagon injection 1 mg 1 mg Subcutaneous Q15 Min PRN Antonino Cheek MD HYDROmorphone (DILAUDID) injection 0.2-0.4 mg 0.2-0.4 mg Intravenous Q2H PRN Antonino Cheek MD 0.2 mg at 05/25/24 0844 insulin aspart (NovoLOG) injection (RAPID ACTING) 1-7 Units Subcutaneous TID Antonino Mahoney MD 1 Units at 05/27/24 1715 insulin aspart (NovoLOG) injection (RAPID ACTING) 1-5 Units Subcutaneous At Bedtime Antonino Cheek MD lidocaine (LMX4) cream Topical Q1H PRN Antonino Cheek MD lidocaine 1 % 0.1-1 mL 0.1-1 mL Other Q1H PRN Antonino Cheek MD metoprolol tartrate (LOPRESSOR) tablet 100 mg 100 mg Oral Antonino Romero MD 100 mg at 05/28/24 0805 naloxone (NARCAN) injection 0.2 mg 0.2 mg Intravenous Q2 Min PRN Antonino Cheek MD Or naloxone (NARCAN) injection 0.4 mg 0.4 mg Intravenous Q2 Min PRN Antonino Cheek MD Or naloxone (NARCAN) injection 0.2 mg 0.2 mg Intramuscular Q2 Min PRN Antonino Cheek MD Or naloxone (NARCAN) injection 0.4 mg 0.4 mg Intramuscular Q2 Min PRN Antonino Cheek MD ondansetron (ZOFRAN) injection 4 mg 4 mg Intravenous Q6H PRN Antonino Cheek MD 4 mg at 05/24/24 1458 pantoprazole (PROTONIX) EC tablet 40 mg 40 mg Oral QAM AC Antonino Cheek MD 40 mg at 05/28/24 0805 piperacillin-tazobactam (ZOSYN) 2.25 g vial to attach to NS 100 ml bag 2.25 g Intravenous Q8H Antonino Cheek MD 2.25 g at 05/28/24 1419 senna-docusate (SENOKOT-S/PERICOLACE) 8.6-50 MG per tablet 1 tablet 1 tablet Oral BID PRN Antonino Cheek MD Or senna-docusate (SENOKOT-S/PERICOLACE) 8.6-50 MG per tablet 2 tablet 2 tablet Oral BID PRN Antonino Cheek MD 2 tablet at 05/26/24 1733 sennosides (SENOKOT) tablet 2 tablet 2 tablet Oral Every Other Day Antonino Cheek MD 2 tablet at05/28/24 0805 sodium chloride (PF) 0.9% PF flush 3 mL 3 mL Intracatheter Q8H Antonino Cheek MD 3 mL at 05/28/24 1419 sodium chloride (PF) 0.9% PF flush 3 mL 3 mL Intracatheter q1 min prn Antonino Cheek MD 3 mL at 05/27/24 0914 vitamin B complex with vitamin C (STRESS TAB) tablet 1 tablet 1 tablet Oral QPM Antonino Cheek MD 1 tablet at 05/27/24 1920 warfarin ANTICOAGULANT (COUMADIN) tablet 4 mg 4 mg Oral ONCE at 18:00 Charles Mcneal MD Warfarin Dose Required Daily - Pharmacist Managed 1 each Oral See Admin Instructions García Cheek MD Facility-Administered Medications Ordered in Other Encounters Medication Dose Route Frequency Provider Last Rate Last Admin heparin 100 UNIT/ML Lock Flush SOLN Physical Exam: Vitals were reviewed Patient Vitals for the past 8 hrs: BP Temp Temp src Pulse Resp SpO2 05/28/24 1454 136/53 98.5 ??F (36.9 ??C) Oral 74 12 99 % 05/28/24 1330 137/54 -- -- 70 15 100 % 05/28/24 1319 (!) 146/64 97.5 ??F (36.4 ??C) Oral 70 16 99 % 05/28/24 1315 133/56 -- -- 71 11 100 % 05/28/24 1300 136/87 -- -- 72 10 (!) 88 % 05/28/24 1245 130/68 -- -- 71 15 100 % 05/28/24 1230 (!) 145/59 -- -- 72 (!) 0 (!) 76 % 05/28/24 1215 (!) 143/94 -- -- 71 13 98 % 05/28/24 1200 (!) 148/76 -- -- 68 17 99 % 05/28/24 1145 (!) 148/80 -- -- 70 29 100 % 05/28/24 1130 (!) 138/95 -- -- 71 19 100 % 05/28/24 1115 137/60 -- -- 70 (!) 8 100 % 05/28/24 1100 138/61 -- -- 72 12 100 % 05/28/24 1045 -- -- -- 71 13 100 % 05/28/24 1030 134/67 -- -- 70 13 100 % 05/28/24 1015 (!) 150/63 -- -- 71 -- 100 % 05/28/24 1000 (!) 148/65 -- -- 76 -- 100 % 05/28/24 0948 (!) 148/67 -- -- 75 -- 98 % 05/28/24 0945 139/63 -- -- 75 -- 100 % 05/28/24 0930 (!) 144/63 97.5 ??F (36.4 ??C) Axillary 75 -- 100 % GEN: NAD, lying in bed EYES: EOMI MOUTH: MMM NECK: Supple RESP: Unlabored breathing CARDIAC: No LE edema SKIN: Warm ABD: soft NEURO: AAO URO:Circumcised phallus. No eschar or crepitus. Still having small amount of purulent drainage in conjunction with serosanguineous drainage. Nontender. Good granulation tissue starting. EXE: Left thigh fistula with palpable thrill. Data: No results found for: NTBNPI, NTBNP Lab Results Component Value Date WBC 8.2 05/26/2024 WBC 8.2 05/24/2024 WBC 7.8 05/23/2024 HGB 7.7 (L) 05/28/2024 HGB 8.0 (L) 05/26/2024 HGB 9.1 (L) 05/24/2024 HCT 27.0 (L) 05/26/2024 HCT 30.9 (L) 05/24/2024 HCT 32.9 (L) 05/23/2024 MCV 93 05/26/2024 MCV 94 05/24/2024 MCV 93 05/23/2024 PLT 171 05/26/2024 PLT 171 05/24/2024 PLT 162 05/23/2024 Lab Results Component Value Date INR 1.87 (H) 05/28/2024 INR 1.81 (H) 05/27/2024 INR 1.67 (H) 05/26/2024 All cultures: Recent Labs Lab 05/23/24 1842 05/23/24 1350 CULTURE 1+ Morganella morganii* 1+ Morganella morganii* 1+ Normal dev 4+ Mixed Aerobic and Anaerobic dev See corresponding culture for results No Growth * Alejandro Emerson MD - 05/28/2024 10:54 AM CDT Inpatient Dialysis Progress Note Assessment and Plan: 1 ESRD: -MWF -L upper thigh AVF, 15 g -3.5 hrs +heparin -Dr. Holman, [place] dialysis Running today. 2 anemia in ESRD-Mircera as outpatient 3 Jose's gangrene-status post I & D. On Zosyn. 4 hyperphosphatemia-on PhosLo Plan: Next run Tue. Interval History: S/P I & D scrotum. On Zosyn. Improving. He has no complaints for me this AM Dialysis Parameters: Wt Readings from Last 4 Encounters: 05/25/24 84 kg (185 lb 3 oz) 03/05/24 84.3 kg (185 lb 13.6 oz) 02/24/24 86.6 kg (190 lb 14.7 oz) 02/11/22 87.5 kg (193 lb) I/O last 3 completed shifts: In: 366 [P.O.:360; I.V.:6] Out: - BP Readings from Last 3 Encounters: 05/28/24 134/67 03/12/24 (!) 149/50 02/26/24 129/53 Routine, ONE TIME, Starting today For 1 Occurrences Weight Loss (kg): 2 Dialysis Temp: 36.5 ??C Access Device: AVF Access Site: L thigh Dialyzer: Revaclear Dialysis Bath: K 2 Blood Flow Rate (mL/min): 400 Total Treatment Time (hrs): 3.5 Heparin: yes Medications and Allergies: Reviewed in EPIC Current Facility-Administered Medications Medication Dose Route Frequency Provider Last Rate Last Admin - MEDICATION INSTRUCTIONS for Dialysis Patients - Does not apply See Admin Instructions Antonino Cheek MD calcium acetate (PHOSLO) capsule 667 mg 667 mg Oral TID w/meals Antonino Cheek MD 667 mg at 05/28/24 08 epoetin mauricio-epbx (RETACRIT) injection 4,000 Units 4,000 Units Intravenous Once in dialysis/CRRT Dileep Anders MD heparin (porcine) injection 500 Units Hemodialysis Machine OR IV Push Once in dialysis/CRRT Dileep Anders MD insulin aspart (NovoLOG) injection (RAPID ACTING) 1-7 Units Subcutaneous TID AC Antonino Cheek MD 1 Units at 05/27/24 1715 insulin aspart (NovoLOG) injection (RAPID ACTING) 1-5 Units Subcutaneous At Bedtime Antonino Cheek MD iron sucrose (VENOFER) injection 50 mg 50 mg Intravenous Once in dialysis/CRRT Dileep Anders MD metoprolol tartrate (LOPRESSOR) tablet 100 mg 100 mg Oral QAM Antonino Cheek MD 100 mg at 05/28/24 08 pantoprazole (PROTONIX) EC tablet 40 mg 40 mg Oral QAM AC Antonino Cheek MD 40 mg at 05/28/24 0805 piperacillin-tazobactam (ZOSYN) 2.25 g vial to attach to NS 100 ml bag 2.25 g Intravenous Q8H Antonino Cheek MD 2.25 g at 05/28/24 0618 sennosides (SENOKOT) tablet 2 tablet 2 tablet Oral Every Other Day Antonino Cheek MD 2 tablet at05/28/24 0805 sodium chloride (PF) 0.9% PF flush 3 mL 3 mL Intracatheter Q8H Antonino Cheek MD 3 mL at 05/28/24 0807 sodium chloride 0.9% BOLUS 250 mL 250 mL Intravenous Once in dialysis/CRRT Dileep Anders MD sodium chloride 0.9% BOLUS 300 mL 300 mL Hemodialysis Machine Once Dileep Anders MD vitamin B complex with vitamin C (STRESS TAB) tablet 1 tablet 1 tablet Oral QPM Antonino Cheek MD 1 tablet at 05/27/24 1920 Warfarin Dose Required Daily - Pharmacist Managed 1 each Oral See Admin Instructions García Cheek MD Current Facility-Administered Medications Medication Dose Route Frequency Provider Last Rate Last Admin albumin human 25 % injection 50 mL 50 mL Intravenous Q1H PRN Dileep Anders MD calcium carbonate (TUMS) chewable tablet 1,000 mg 1,000 mg Oral 4x Daily PRN Antonino Cheek MD glucose gel 15-30 g 15-30 g Oral Q15 Min PRN Antonino Cheek MD Or dextrose 50 % injection 25-50 mL 25-50 mL Intravenous Q15 Min PRN Antonino Cheek MD Or glucagon injection 1 mg 1 mg Subcutaneous Q15 Min PRN Antonino Cheek MD HYDROmorphone (DILAUDID) injection 0.2-0.4 mg 0.2-0.4 mg Intravenous Q2H PRN Antonino Cheek MD 0.2 mg at 05/25/24 0844 lidocaine (LMX4) cream Topical Q1H PRN Antonino Cheek MD lidocaine 1 % 0.1-1 mL 0.1-1 mL Other Q1H PRN Antonino Cheek MD lidocaine 1 % 0.5 mL 0.5 mL Intradermal Once PRN Dileep Anders MD lidocaine 1 % 0.5 mL 0.5 mL Intradermal Once PRN Dileep Anders MD naloxone (NARCAN) injection 0.2 mg 0.2 mg Intravenous Q2 Min PRN Antonino Cheek MD Or naloxone (NARCAN) injection 0.4 mg 0.4 mg Intravenous Q2 Min PRN Antonino Cheek MD Or naloxone (NARCAN) injection 0.2 mg 0.2 mg Intramuscular Q2 Min PRN Antonino Cheek MD Or naloxone (NARCAN) injection 0.4 mg 0.4 mg Intramuscular Q2 Min PRN Antonino Cheek MD ondansetron (ZOFRAN) injection 4 mg 4 mg Intravenous Q6H PRN Antonino Cheek MD 4 mg at 05/24/24 1458 senna-docusate (SENOKOT-S/PERICOLACE) 8.6-50 MG per tablet 1 tablet 1 tablet Oral BID PRN Antonino Cheek MD Or senna-docusate (SENOKOT-S/PERICOLACE) 8.6-50 MG per tablet 2 tablet 2 tablet Oral BID RAYN Antonino Cheek MD 2 tablet at 05/26/24 1733 sodium chloride (PF) 0.9% PF flush 3 mL 3 mL Intracatheter q1 min prn Antonino Cheek MD 3 mL at 05/27/24 0914 sodium chloride 0.9% BOLUS 100-150 mL 100-150 mL Intravenous Q15 Min PRN Dileep Anders MD Stop Heparin 60 minutes before end of treatment Does not apply Continuous PRN Dileep Anders MD Allergies Allergen Reactions Dihydroxyaluminum Aminoacetate Nausea GI bleeding Aspirin GI Disturbance and Rash PN: LW Reaction: unknown Labs: BMP Recent Labs Lab 05/28/24 0748 05/28/24 0607 05/28/24 0219 05/27/24 2105 05/26/24 0822 05/26/24 0547 05/24/24 0912 05/24/24 0609 05/23/24 1741 05/23/24 1350 NA -- 136 -- -- -- 135 -- 131* -- 134* POTASSIUM -- 4.7 -- -- -- 4.4 -- 4.3 -- 3.6 CHLORIDE -- 98 -- -- -- 97* -- 94* -- 95* JON -- 8.7* -- -- -- 8.7* -- 9.3 -- 9.1 CO2 -- 22 -- -- -- 28 -- 24 -- 29 BUN -- 50.8* -- -- -- 30.0* -- 28.9* -- 19.9 CR -- 9.64* -- -- -- 5.84* -- 5.89* -- 4.52* GLC 128* 77 102* 148* < > 88 < > 115* < > 175* < > = values in this interval not displayed. CBC Recent Labs Lab 05/28/24 0607 05/26/24 0547 05/24/24 0609 05/23/24 1350 WBC -- 8.2 8.2 7.8 HGB 7.7* 8.0* 9.1* 9.7* HCT -- 27.0* 30.9* 32.9* MCV -- 93 94 93 PLT -- 171 171 162 Lab Results Component Value Date AST 13 05/24/2024 ALT 19 05/24/2024 ALKPHOS 62 05/24/2024 BILITOTAL 0.5 05/24/2024 DARLINE <10 (L) 03/02/2024 Physical Exam: Vitals were reviewed in EPIC Wt Readings from Last 3 Encounters: 05/25/24 84 kg (185 lb 3 oz) 03/05/24 84.3 kg (185 lb 13.6 oz) 02/24/24 86.6 kg (190 lb 14.7 oz) No intake or output data in the 24 hours ending 05/28/24 1054 GENERAL APPEARANCE: pleasant, no distress, a & o HEENT: Eyes/ears/nose grossly normal, neck supple RESP: lungs clear to auscultation with good efforts, no crackles, rhonchi or wheezes CV: regular rate and rhythm, normal S1 S2, systole M, no click or rub ABDOMEN: soft, nontender, bowel sounds normal EXTREMITIES/SKIN: no edema, no rashes or lesions Pt seen on dialysis. Stable run. Good BFR. Attestation: I have reviewed today's vital signs, notes, medications, labs and imaging. Alejandro Emerson MD [facility] - Nephrology [phone] * Isaiah Harding MD - 05/27/2024 10:22 AM CDT [facility] Medicine Progress Note - Hospitalist Service Date of Admission: 05/23/2024 Assessment & Plan Herminio Victor is a 59 year old male admitted on 05/23/2024. He presents with scrotal swelling,foul-smelling and radiological findings compatible with Jose's gangrene. 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 Jose's gangrene, ID recommended to continue Zosyn and antibiotics to continue until 05/30 End-stage renal disease on hemodialysis Tuesday, Tuesday, Tuesday Diabetes mellitus type 2 Cognitive deficits Anemia History of DVT on chronic anticoagulation in the form of warfarin Hypertension Legally blind Plan -Dialysis diet -O2 as needed sat 94% or > --Zosyn IVper ID plan -Urology consulted. -Nephrology consulted. -Infectious disease consulted. -INR reversed. Surgery completed 05/23. -Incision and drainage of scrotal abscess, debridement of scrotal skin and subcutaneous tissues . -Continue to monitor leukocytosis. -WOC RN consulted for cures/dressing management. -Pain with Dilaudid and nausea management per protocol. -PCD's Diet: Renal Diet (dialysis) DVT Prophylaxis: Pneumatic Compression Devices Valadez Catheter: Not present Lines: None Cardiac Monitoring: None Code Status: Full Code Clinically Significant Risk Factors # Hypoalbuminemia: Lowest albumin = 3 g/dL at 05/24/2024 6:09 AM, will monitor as appropriate # Obesity: Estimated body mass index is 31.79 kg/m?? as calculated from the following: Height as of this encounter: 1.626 m (5' 4). Weight as of this encounter: 84 kg (185 lb 3 oz)., PRESENT ON ADMISSION Disposition Plan Medically Ready for Discharge: Anticipated in 5+ Days Isaiah Harding MD Hospitalist Service [facility] Securely message with [employer] (more info) Text page via [employer] Paging/Directory Interval History Pt seen and examined Afebrile. Hemodynamically stable. On IV zosyn. ID followed and recommendations noted. Improving. No complication at this point. Urology is following. No bleeding, pain. He feels good. Infectious disease has de-escalated antibiotic therapy to Zosyn only, Vanco and clinda discontinued. ID recommendations as following Recommendations Continue Zosyn Plan 7 day treatment course post op until 05/30. Infection has been controlled surgically, wound remains stable. If discharging prior to completion of antibiotics, discharge on Cipro and Augmentin Local wound care Current Facility-Administered Medications: - MEDICATION INSTRUCTIONS for Dialysis Patients -, , Does not apply, See Admin Instructions, Antonino Cheek MD calcium acetate (PHOSLO) capsule 667 mg, 667 mg, Oral, TID w/meals, Antonino Cheek MD, 667 mg at05/27/24 0909 calcium carbonate (TUMS) chewable tablet 1,000 mg, 1,000 mg, Oral, 4x Daily PRN, Antonino Cheek MD glucose gel 15-30 g, 15-30 g, Oral, Q15 Min PRN OR dextrose 50 % injection 25-50 mL, 25-50 mL, Intravenous, Q15 Min PRN OR glucagon injection 1 mg, 1 mg, Subcutaneous, Q15 Min PRN, Antonino Cheek MD HYDROmorphone (DILAUDID) injection 0.2-0.4 mg, 0.2-0.4 mg, Intravenous, Q2H PRN, Antonino Cheek MD, 0.2 mg at 05/25/24 0844 insulin aspart (NovoLOG) injection (RAPID ACTING), 1-7 Units, Subcutaneous, TID AC, Antonino Cheek MD, 1 Units at 05/26/24 1619 insulin aspart (NovoLOG) injection (RAPID ACTING), 1-5 Units, Subcutaneous, At Bedtime, Antonino Cheek MD lidocaine (LMX4) cream, , Topical, Q1H PRN, Antonino Cheek MD lidocaine 1 % 0.1-1 mL, 0.1-1 mL, Other, Q1H PRN, Antonino Cheek MD metoprolol tartrate (LOPRESSOR) tablet 100 mg, 100 mg, Oral, QAM, Antonino Cheek MD, 100 mg at 05/27/24 0910 naloxone (NARCAN) injection 0.2 mg, 0.2 mg, Intravenous, Q2 Min PRN OR naloxone (NARCAN) injection 0.4 mg, 0.4 mg, Intravenous, Q2 Min PRN OR naloxone (NARCAN) injection 0.2 mg, 0.2 mg, Intramuscular, Q2 Min PRN OR naloxone (NARCAN) injection 0.4 mg, 0.4 mg, Intramuscular, Q2 Min PRN, Antonino Cheek MD ondansetron (ZOFRAN) injection 4 mg, 4 mg, Intravenous, Q6H PRN, Antonino Cheek MD, 4 mg at 05/24/24 1458 pantoprazole (PROTONIX) EC tablet 40 mg, 40 mg, Oral, QAM AC, Antonino Cheek MD, 40 mg at 05/27/24 0910 piperacillin-tazobactam (ZOSYN) 2.25 g vial to attach to NS 100 ml bag, 2.25 g, Intravenous, Q8H, Antonino Cheek MD, 2.25 g at 05/27/24 0617 senna-docusate (SENOKOT-S/PERICOLACE) 8.6-50 MG per tablet 1 tablet, 1 tablet, Oral, BID PRN ORsenna-docusate (SENOKOT-S/PERICOLACE) 8.6-50 MG per tablet 2 tablet, 2 tablet, Oral, BID PRN, Antonino Cheek MD, 2 tablet at 05/26/24 1733 sennosides (SENOKOT) tablet 2 tablet, 2 tablet, Oral, Every Other Day, Antonino Cheek MD, 2 tablet at 05/26/24 0815 sodium chloride (PF) 0.9% PF flush 3 mL, 3 mL, Intracatheter, Q8H, Antonino Cheek MD, 3 mL at 05/27/24 0621 sodium chloride (PF) 0.9% PF flush 3 mL, 3 mL, Intracatheter, q1 min prn, Antonino Cheek MD, 3 mL at 05/27/24 0914 vitamin B complex with vitamin C (STRESS TAB) tablet 1 tablet, 1 tablet, Oral, QPM, Antonino Cheek MD, 1 tablet at 05/26/24 1914 warfarin ANTICOAGULANT (COUMADIN) tablet 2 mg, 2 mg, Oral, ONCE at 18:00, Antonino Cheek MD Warfarin Dose Required Daily - Pharmacist Managed, 1 each, Oral, See Admin Instructions, Antonino Cheek MD Facility-Administered Medications Ordered in Other Encounters: heparin 100 UNIT/ML Lock Flush SOLN, , , , Physical Exam Vital Signs: Temp: 98.6 ??F (37 ??C) Temp src: Oral BP: (!) 143/58 Pulse: 84 Resp: 16 SpO2: 96 % [id number]: None (Room air) Weight: 185 lbs 2.98 oz GEN: Alert, oriented x 3, appears comfortable, NAD. HEENT: Normocephalic/atraumatic, no scleral icterus, no nasal discharge, mouth moist. CV: Regular rate and rhythm, YARA II/ murmur LSB. S1 + S2 noted, no S3 or S4. LUNGS: Clear to auscultation bilaterally without rales/rhonchi/wheezing/retractions. Symmetric chest rise on inhalation noted. ABD: Active bowel sounds, soft, non-tender/non-distended. No rebound/guarding/rigidity. BRITTANY: dressing to the scrotal wounds, pus discharge on the dressing. EXT: No edema or cyanosis. No joint synovitis noted. SKIN: Dry to touch, no exanthems noted in the visualized areas. Medical Decision Making Home with Home health care Data CBC RESULTS: Recent Labs Lab Test 05/26/24 0547 WBC 8.2 RBC 2.89* HGB 8.0* HCT 27.0* MCV 93 MCH 27.7 MCHC 29.6* RDW 20.4* PLT 171 Last Comprehensive Metabolic Panel: Lab Results Component Value Date NA 135 05/26/2024 POTASSIUM 4.4 05/26/2024 CHLORIDE 97 (L) 05/26/2024 CO2 28 05/26/2024 ANIONGAP 10 05/26/2024 GLC 108 (H) 05/27/2024 BUN 30.0 (H) 05/26/2024 CR 5.84 (H) 05/26/2024 GFRESTIMATED 10 (L) 05/26/2024 JON 8.7 (L) 05/26/2024 INR Date Value Ref Range Status 05/27/2024 1.81 (H) 0.85 - 1.15 Final 03/18/2020 2.97 (H) 0.86 - 1.14 Final * Michelle Bird RN - 05/27/2024 10:00 AM CDT Care Management Follow Up Length of Stay (days): 4 Expected Discharge Date: 05/29/2024 Concerns to be Addressed: elopement Patient plan of care discussed at interdisciplinary rounds: Yes Anticipated Discharge Disposition: Home Anticipated Discharge Services: COSTING ANALYST, County Worker Anticipated Discharge DME: Education Provided on the Discharge Plan: Patient/Family in Agreement with the Plan: yes Referrals Placed by CM/SW: Private pay costs discussed: Not applicable Additional Information: CM called [facility] intake and they can accommodate a next day seeing patient. Family has not called back nor come in to be taught the dressing change. [facility] said they can teach the aunt, Thelma, in the home, next day. Laura Bird, RN, BSN, CM Inpatient Care Coordination [facility] [phone] * Yamilet Marcelo MD - 05/27/2024 7:38 AM CDT Images from the original note were not included. [facility] Infectious Disease Progress Note Date of Service : 05/27/2024 Assessment: 1 59-year-old male acute Jose's gangrene of the scrotum, status post major operative intervention, cultures from surgery are growing Morganella morganii 2 significant sepsis, blood cultures remained 3 end-stage renal disease on dialysis 4 prior history in 2016 of Staph aureus bacteremia otherwise not that much in the way of major long-term infection issues 5 blindness 6 chronic cognitive dysfunction Recommendations Continue Zosyn Plan 7 day treatment course post op until 05/30. Infection has been controlled surgically, wound remains stable. If discharging prior to completion of antibiotics, discharge on Cipro and Augmentin Local wound care ID will sign off, please call us back as needed Yamilet Marcelo MD Interval History Patient was seen chart reviewed Being treated for ojse's gangrene S/p surgical debridement, wound appears clean and stable now Antibiotics were de escalated yesterday Remains afebrile, no leukocytosis, tolerating antibiotics without side effects Physical Exam Temp: 98.6 ??F (37 ??C) Temp src: Oral BP: (!) 143/58 Pulse: 84 Resp: 16 SpO2: 96 % O2 Device: None(Room air) Vitals: 05/23/24 1321 05/25/24 0800 Weight: 83.9 kg (185 lb) 84 kg (185 lb 3 oz) Vital Signs with Ranges Temp: [98.2 ??F (36.8 ??C)-98.7 ??F (37.1 ??C)] 98.6 ??F (37 ??C) Pulse: [78-84] 84 Resp: [12-16] 16 BP: (110-143)/(45-58) 143/58 SpO2: [95 %-98 %] 96 % Constitutional: resting, no apparent distress Lungs: non labored breathing Skin: No rashes,perineal wound Other: Medications Current Facility-Administered Medications Medication Dose Route Frequency Provider Last Rate Last Admin Current Facility-Administered Medications Medication Dose Route Frequency Provider Last Rate Last Admin - MEDICATION INSTRUCTIONS for Dialysis Patients - Does not apply See Admin Instructions Antonino Cheek MD calcium acetate (PHOSLO) capsule 667 mg 667 mg Oral TID w/meals Antonino Cheek MD 667 mg at 05/26/24 1703 insulin aspart (NovoLOG) injection (RAPID ACTING) 1-7 Units Subcutaneous TID AC Cheek, Antonino F, MD 1 Units at 05/26/24 1619 insulin aspart (NovoLOG) injection (RAPID ACTING) 1-5 Units Subcutaneous At Bedtime Antonino Cheek MD metoprolol tartrate (LOPRESSOR) tablet 100 mg 100 mg Oral QAM Antonino Cheek MD 100 mg at 05/26/24 0815 pantoprazole (PROTONIX) EC tablet 40 mg 40 mg Oral QAM Antonino Mahoney MD 40 mg at 05/26/24 0815 piperacillin-tazobactam (ZOSYN) 2.25 g vial to attach to NS 100 ml bag 2.25 g Intravenous Q8H Antonino Cheek MD 2.25 g at 05/27/24 0617 sennosides (SENOKOT) tablet 2 tablet 2 tablet Oral Every Other Day Antonino Cheek MD 2 tablet at05/26/24 0815 sodium chloride (PF) 0.9% PF flush 3 mL 3 mL Intracatheter Q8H Antonino Cheek MD 3 mL at 05/27/24 0621 vitamin B complex with vitamin C (STRESS TAB) tablet 1 tablet 1 tablet Oral QPM Antonino Cheek MD 1 tablet at 05/26/24 1914 Warfarin Dose Required Daily - Pharmacist Managed 1 each Oral See Admin Instructions García Cheek MD Data All microbiology laboratory data reviewed. Recent Labs Lab Test 05/26/24 0547 05/24/24 0609 05/23/24 1350 WBC 8.2 8.2 7.8 HGB 8.0* 9.1* 9.7* HCT 27.0* 30.9* 32.9* MCV 93 94 93 PLT 171 171 162 Recent Labs Lab Test 05/26/24 0547 05/24/24 0609 05/23/24 1350 CR 5.84* 5.89* 4.52* Microbiology 05/23/2024184105/25/2024 1401 Anaerobic Bacterial Culture Routine [[id number]] Tissue from Scrotum Final result Component Value Culture 4+ Mixed Aerobic and Anaerobic dev No predominant organism 05/23/2024184105/23/20242042 Gram Stain [[id number]] (Abnormal) Tissue from Scrotum Final result Component Value GS Culture See corresponding culture for results Gram Stain Result 4+ Gram positive cocci Abnormal Gram Stain Result 3+ Gram negative bacilli Abnormal Gram Stain Result 2+ Gram positive bacilli Abnormal Gram Stain Result 4+ WBC seen Abnormal Predominantly PMNs 05/23/2024 1842 05/25/2024 2312 Tissue Aerobic Bacterial Culture Routine [[id number]] (Abnormal) Tissue from Scrotum Final result Component Value Culture 1+ Morganella morganii Abnormal 1+ Morganella morganii Abnormal 1+ Normal dev Susceptibility Morganella morganii (1) Morganella morganii (2) JOJO JOJO Amikacin <=2 ug/mL Susceptible * <=2 ug/mL Susceptible * Ampicillin Resistant 1 Resistant 1 Ampicillin/ Sulbactam >=32 ug/mL Resistant >=32 ug/mL Resistant Cefazolin Resistant * Resistant * Cefepime <=1 ug/mL Susceptible <=1 ug/mL Susceptible Cefoxitin 8 ug/mL Susceptible * 8 ug/mL Susceptible * Ceftazidime <=1 ug/mL Susceptible <=1 ug/mL Susceptible Ceftriaxone <=1 ug/mL Susceptible <=1 ug/mL Susceptible Ciprofloxacin <=0.25 ug/mL Susceptible <=0.25 ug/mL Susceptible Gentamicin <=1 ug/mL Susceptible <=1 ug/mL Susceptible Levofloxacin <=0.12 ug/mL Susceptible <=0.12 ug/mL Susceptible Meropenem <=0.25 ug/mL Susceptible <=0.25 ug/mL Susceptible Nitrofurantoin 256 ug/mL Resistant * 256 ug/mL Resistant * Piperacillin/Tazobactam <=4 ug/mL Susceptible <=4 ug/mL Susceptible Tobramycin <=1 ug/mL Susceptible <=1 ug/mL Susceptible Trimethoprim/Sulfamethoxazole >16/304 ug/mL Resistant >16/304 ug/mL Resistant * Antonino Cheek MD - 05/26/2024 12:56 PM CDTFormatting of this note is different from the [facility] Medicine Progress Note - Hospitalist Service Date of Admission: 05/23/2024 Assessment & Plan Herminio Victor is a 59 year old male admitted on 05/23/2024. He presents with scrotal swelling,foul-smelling and radiological findings compatible with Jose's gangrene. 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 Jose's gangrene End-stage renal disease on hemodialysis Tuesday, Tuesday, Tuesday Diabetes mellitus type 2 Cognitive deficits Anemia History of DVT on chronic anticoagulation in the form of warfarin Hypertension Legally blind Plan -Dialysis diet -inpatient. -O2 as needed sat 94% or > -Strict DONI's. -Zosyn IVper ID plan -Urology consulted. -Nephrology consulted. -Infectious disease consulted. -INR reversed. Surgery completed 05/23. -Incision and drainage of scrotal abscess, debridement of scrotal skin and subcutaneous tissues . -Continue to monitor leukocytosis. -WOC RN consulted for cures/dressing management. -Pain with Dilaudid and nausea management per protocol. -PCD's Diet: Renal Diet (dialysis) DVT Prophylaxis: Pneumatic Compression Devices Valadez Catheter: Not present Lines: None Cardiac Monitoring: None Code Status: Full Code Clinically Significant Risk Factors # Hypoalbuminemia: Lowest albumin = 3 g/dL at 05/24/2024 6:09 AM, will monitor as appropriate # Coagulation Defect: INR = 1.16 (Ref range: 0.85 - 1.15) and/or PTT = N/A, will monitor for bleeding # Obesity: Estimated body mass index is 31.79 kg/m?? as calculated from the following: Height as of this encounter: 1.626 m (5' 4). Weight as of this encounter: 84 kg (185 lb 3 oz)., PRESENT ON ADMISSION Disposition Plan Medically Ready for Discharge: Anticipated in 5+ Days Antonino Cheek MD Hospitalist Service [facility] Securely message with [employer] (more info) Text page via [facility] Paging/Directory Interval History Improving. No complication at this point. Urology is following. No bleeding, pain. He feels good. Infectious disease has de-escalated antibiotic therapy to Zosyn only, Vanco and clinda discontinued. Physical Exam Vital Signs: Temp: 98.7 ??F (37.1 ??C) Temp src: Oral BP: 122/47 Pulse: 79 Resp: 12 SpO2: 95 % O2 Device: None (Room air) Weight: 185 lbs 2.98 oz GEN: Alert, oriented x 3, appears [...] over the past 24 hrs: 8.2 \ 8.0 (L) / 171 135 97 (L) 30.0 (H) / 197 (H) 4.4 28 5.84 (H) \ Imaging results reviewed over the past 24 hrs: No results found for this or any previous visit (from the past 24 hour(s)). * Yamilet Marcelo MD - 05/26/2024 11:04 AM CDT ID chart check Cxs noted with GNB Morganella morganii. No MRSA isolation. Infection has been controlled surgically Discontinue Clindamycin and Vancomycin Treat with Zosyn * Raúl Cruz MD - 05/26/2024 10:36 AM CDT Urology No events in past 24 hours He has been afebrile On exam his wound appears to be healing well with no evidence of infection. A/P: Recovering well from scrotal abscess drainage Continue with dressing changes once daily No further urologic intervention will be required Okay to start Coumadin at this time. * Michelle Bird RN - 05/26/2024 10:11 AM CDT Care Management Follow Up Length of Stay (days): 3 Expected Discharge Date: 05/29/2024 Concerns to be Addressed: elopement Patient plan of care discussed at interdisciplinary rounds: Yes Anticipated Discharge Disposition: Home Anticipated Discharge Services: COSTING ANALYST, County Worker Anticipated Discharge DME: Education Provided on the Discharge Plan: yes Patient/Family in Agreement with the Plan: yes Referrals Placed by CM/SW: HC RN Private pay costs discussed: Not applicable Additional Information: CM sent out HC referral this AM and [facility] has accepted. Contact info placed on AVS. CM attempted to call patient's aunt and unable to leave a message as VM not set up. CM verifying if can come in to be taught wound care. HC RN can also teach in the home.CM informed bedside RN to teach if family present today and to let this CM know so can inform of HC. Addendum 1134 CM received call back from patient's mother, Arianna. CM informed her it would be in patient's best interest to have Thelma, patient's COSTING ANALYST and aunt, to come in and learn how to do dressing changes. Ariannawas going to tell Thelma when she returns home and look for a ride here. Laura Bird, RN, BSN, CM Inpatient Care Coordination [facility] [phone] * Antonino Cheek MD - 05/25/2024 2:24 PM CDT [facility] Medicine Progress Note - Hospitalist Service Date of Admission: 05/23/2024 Assessment & Plan Herminio Victor is a 59 year old male admitted on 05/23/2024. He presents with scrotal swelling,foul-smelling and radiological findings compatible with Jose's gangrene. 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 Jose's gangrene End-stage renal disease on hemodialysis Tuesday, Tuesday, Tuesday Diabetes mellitus type 2 Cognitive deficits Anemia History of DVT on chronic anticoagulation in the form of warfarin Hypertension Legally blind Plan -Dialysis diet -inpatient. -O2 as needed sat 94% or > -Strict DONI's. -Zosyn/vancomycin/clindamycin IV (pharmacy to dose according to [facility]) -Urology consulted. -Nephrology consulted. -Infectious disease consulted. -INR reversed. Surgery completed 05/23. -Incision and drainage of scrotal abscess, debridement of scrotal skin and subcutaneous tissues . -Continue to monitor leukocytosis. -WOC RN consulted for cures/dressing management. -Pain with Dilaudid and nausea management per protocol. -PCD's Diet: NPO per Anesthesia Guidelines for Procedure/Surgery Except for: Meds Renal Diet (dialysis) DVT Prophylaxis: Pneumatic Compression Devices Valadez Catheter: Not present Lines: None Cardiac Monitoring: None Code Status: Full Code Clinically Significant Risk Factors # Hypoalbuminemia: Lowest albumin = 3 g/dL at 05/24/2024 6:09 AM, will monitor as appropriate # Coagulation Defect: INR = 1.16 (Ref range: 0.85 - 1.15) and/or PTT = N/A, will monitor for bleeding # Obesity: Estimated body mass index is 31.79 kg/m?? as calculated from the following: Height as of this encounter: 1.626 m (5' 4). Weight as of this encounter: 84 kg (185 lb 3 oz)., PRESENT ON ADMISSION Disposition Plan Medically Ready for Discharge: Anticipated in 5+ Days Antonino Cheek MD Hospitalist Service [facility] Securely message with [employer] (more info) Text page via [employer] Paging/Directory Interval History No complication at this point. Urology is following. No bleeding, pain or other complication. He states to be good. Physical Exam Vital Signs: Temp: 98.4 ??F (36.9 ??C) Temp src: Oral BP: (!) 99/35 Pulse: 70 Resp: 16 SpO2: 100 % O2 Device: None (Room air) Oxygen Delivery: 2 LPM Weight: 185 lbs 2.98 oz GEN: Alert, oriented x 3, appears [...] following data over the past 24 hrs: INR: N/A PTT: N/A D-dimer: N/A Fibrinogen: N/A Imaging results reviewed over the past 24 hrs: No results found for this or any previous visit (from the past 24 hour(s)). * Ricarda Linares RN - 05/25/2024 1:20 PM CDT Potassium Date Value Ref Range Status 05/24/2024 4.3 3.4 - 5.3 mmol/L Final 01/24/2018 4.3 3.4 - 5.3 mmol/L Final Hemoglobin Date Value Ref Range Status 05/24/2024 9.1 (L) 13.3 - 17.7 g/dL Final 01/24/2018 8.2 (L) 13.3 - 17.7 g/dL Final Creatinine Date Value Ref Range Status 05/24/2024 5.89 (H) 0.67 - 1.17 mg/dL Final 01/25/2019 9.17 (H) 0.66 - 1.25 mg/dL Final Urea Nitrogen Date Value Ref Range Status 05/24/2024 28.9 (H) 8.0 - 23.0 mg/dL Final 01/24/2018 78 (H) 7 - 30 mg/dL Final Sodium Date Value Ref Range Status 05/24/2024 131 (L) 135 - 145 mmol/L Final 01/24/2018 131 (L) 133 - 144 mmol/L Final INR Date Value Ref Range Status 05/24/2024 1.16 (H) 0.85 - 1.15 Final 03/18/2020 2.97 (H) 0.86 - 1.14 Final DIALYSIS PROCEDURE NOTE Hepatitis status of previous patient on machine log was checked and verified ok to use with this patients hepatitis status. Patient dialyzed for 3.5 hrs. on a K3 for first 2.5 hrs of tx then switched to K2 bath per Dr. Anders with a net fluid removal of 1.5L. A BFR of 450 ml/min was obtained via a LAVF located in upper thigh using 15 gauge needles. The treatment plan was discussed with Dr. Anders during the treatment. Total heparin received during the treatment: 0 units. Needle cannulation sites held x 5 min. Meds given: None Complications: None Person educated: Pt. Knowledge base limited. Barriers to learning: cognitive delays. Educated on procedure via verbal mode. The patient verbalized understanding. ICEBOAT? Timeout performed pre-treatment I: Patient was identified using 2 identifiers C: Consent Signed Yes E: Equipment preventative maintenance is current and dialysis delivery system OK to use B: Hepatitis B Surface Antigen: Non-reactive; Draw Date: 04/30/24 Hepatitis B Surface Antibody: Immune; Draw Date: 07/04/23 O: Dialysis orders present and complete prior [...] checked every 4 hours. Outpatient Dialysis at [facility] on MWF. Post treatment report given to primary bedside RN regarding 1.5L of fluid removed, last BP 111/50. Ricarda Linares RN * Tyrel Haro MD - 05/25/2024 12:23 PM CDT [facility] Infectious Disease Progress Note Assessment and Plan: Date of Admission: 05/23/2024 Date of Consult (When I saw the patient): 05/24/24 Assessment & Plan Herminio Victor is a 59 year old male who was admitted on 05/23/2024. Impression: 1 59-year-old male acute Jose's gangrene of the scrotum, status post major operative intervention, cultures from surgery are pending 2 significant sepsis, blood cultures so far negative 3 end-stage renal disease on dialysis 4 prior history in 2016 of Staph aureus bacteremia otherwise not that much in the way of major long-term infection issues 5 blindness 6 chronic cognitive dysfunction REC 1 agree with current broad antibiotics(zosyn,clinda,Vanco on board), await microbiology and simplify and adjust as able preliminarily gram-negative donny but not finalized 2 negblood culture make sure not bacteremic which will alter plans potentially 3 follow wound and overall clinical status closely Temp down, white count normal, microbiology still all pending, clinically stable including wound Interval History: no new complaints mental status changes at baseline apparently, looks okay, wound covered, culture with a gram-negative donny but prelim information only Medications: Current Facility-Administered Medications Medication Dose Route Frequency Provider Last Rate Last Admin - MEDICATION INSTRUCTIONS for Dialysis Patients - Does not apply See Admin Instructions Antonino Cheek MD calcium acetate (PHOSLO) capsule 667 mg 667 mg Oral TID w/meals Antonino Cheek MD 667 mg at 05/24/24 1706 clindamycin (CLEOCIN) 900 mg in 50 mL D5W intermittent infusion 900 mg Intravenous Q8H Antonino Cheek MD 100 mL/hr at 05/25/24 0522 900 mg at 05/25/24 0522 insulin aspart (NovoLOG) injection (RAPID ACTING) 1-7 Units Subcutaneous TID AC Antonino Cheek MD insulin aspart (NovoLOG) injection (RAPID ACTING) 1-5 Units Subcutaneous At Bedtime Antonino Cheek MD metoprolol tartrate (LOPRESSOR) tablet 100 mg 100 mg Oral QAM Antonino Cheek MD 100 mg at 05/25/24 0843 pantoprazole (PROTONIX) EC tablet 40 mg 40 mg Oral QAM AC Antonino Cheek MD 40 mg at 05/25/24 0843 piperacillin-tazobactam (ZOSYN) 2.25 g vial to attach to NS 100 ml bag 2.25 g Intravenous Q8H Antonino Cheek MD 2.25 g at 05/25/24 0601 sennosides (SENOKOT) tablet 2 tablet 2 tablet Oral Every Other Day Antonino Cheek MD 2 tablet at05/24/24 0902 sodium chloride (PF) 0.9% PF flush 3 mL 3 mL Intracatheter Q8H Antonino Cheek MD 3 mL at 05/25/[address] watson - receiving intermittent dosing 1 each Intravenous See Admin Instructions Antonino Cheek MD vitamin B complex with vitamin C (STRESS TAB) tablet 1 tablet 1 tablet Oral QPM Antonino Cheek MD Physical Exam: Blood pressure 121/51, pulse 64, temperature 98.3 ??F (36.8 ??C), temperature source Oral, resp. rate 12, height 1.626 m (5' 4), weight 84 kg (185 lb 3 oz), SpO2 100%. Wt Readings from Last 2 Encounters: 05/25/24 84 kg (185 lb 3 oz) 03/05/24 84.3 kg (185 lb 13.6 oz) Vital Signs with Ranges Temp: [98.1 ??F (36.7 ??C)-98.9 ??F (37.2 ??C)] 98.3 ??F (36.8 ??C) Pulse: [61-79] 64 Resp: [11-20] 12 BP: (117-134)/(42-67) 121/51 SpO2: [98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 05/24/2024 and is as listed in HPI. MEDICATIONS: THERAPEUTIC SPECIALIST Meds Prior to Admission medications Medication Sig Last Dose Taking? Auth Provider Plastic Technician End Date B Bbznsgo-L-Xqajp Acid (WESCAPS PO) Take 1 capsule by [...] flush 3 mL 3 mL Intracatheter Q8H Atnonino Cheek MD 3 mL at 05/24/24 0551 [...] original note were not included. [facility] WOC Nurse Inpatient Assessment Consulted for: Scrotum Patient History (according to provider note(s): Herminio Victor is a 59 year old male admitted on 05/23/2024. He presents with scrotal swelling,foul-smelling and radiological findings compatible with Jose's gangrene. 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 Assessment: Areas visualized during today's visit: Focused: Wound location: Scrotum Last photo: 05/24/24 Wound due to: Jose's Gangrene Wound history/plan of care: Patient with Jose's gangrene s/p debridement on 05/23/24. Wound base: [...] of care with: Patient, Nurse, and Physicians Mock Up Assembler WO nurse follow-up plan: 1-2 times a week Notify WO if wound(s) deteriorate. Nursing to notify the Provider(s) and re-consult the WO Nurse if new skin concern. DATA: Current [...] Mckinley RN CWOCN Contact Via [facility] Nurse (Sherry) Dept. Office Number: [phone] * Poppy Bernardo PA-C - 05/23/2024 2:19 PM CDT [facility] Consultation by [facility] Herminio Victor Age: [age] year old Date of : 1965 Date of Admission: 05/23/2024 Reason for consult: Scrotal gangrene Requesting PA/MD: Dr. Pierson Level of consult: Consult, follow and place orders Assessment and Plan: Assessment: Jose's gangrene End-stage renal disease on hemodialysis Tuesday, [...] continue to follow along. Poppy Bernardo PA-C [facility] [phone] Chief Complaint: Penis/Scrotum problem History is obtained [...] Surgeon: Jaxon Buenrostro MD; Location: [facility] OR C PLACE CATH AV DIALYSIS SHUNT [...] Surgeon: Jaxon Buenrostro MD; Location: [facility] OR CREATE FISTULA ARTERIOVENOUS [...] Surgeon: Jaxon Buenrostro MD; Location: [facility] OR CREATE GRAFT LOOP [...] Surgeon: Jaxon Buenrostro MD; Location: OR Social History: Social History [...] 4,156 Units 4,156 Units Intravenous Once Vi Hernandez, DO sodium chloride 0.9 % bag [address] scan flush use 100 mL As instructed Q1H PRN Vi Hernandez, DO 100 mL at 05/23/24 1417 sodium chloride 0.9% BOLUS 1,000 mL 1,000 mL Intravenous Once Vi Hernandez, DO 1,000 mL/hrat 05/23/24 1355 1,000 mL at 05/23/24 1355 vancomycin (VANCOCIN) 1,750 mg in 0.9% NaCl 500 mL intermittent infusion 20 mg/kg Intravenous Once Vi Hernandez, DO 250 mL/hr at 05/23/24 1434 1,750 mg at 05/23/24 1434 Current Outpatient Medications Medication Sig Dispense Refill amLODIPine (NORVASC) 5 MG tablet Take 5 mg by mouth daily atorvastatin (LIPITOR) 20 MG tablet Take 1 tablet (20 mg) by mouth every evening 30 tablet 3 B Gzckvrw-T-Dcdqg Acid (WESCAPS PO) Take 1 capsule by [...] subcutaneous tissues of the scrotum consistent with Jose's gangrene. ADDITIONAL FINDINGS: No lymphadenopathy in the [...] veins which are not included in the gtbmi-ms-zvih. 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 No destructive lesions in the bones. IMPRESSION: 1. 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 2. Other chronic findings as discussed above. Findings were discussed with Dr. Kenna Coe at 2:35 PM. MIKE LIPSCOMB MD SYSTEM ID: [id number] Associated attestation - Lizandro Barron MD - 05/23/2024 6:06 PM CDT Physician Attestation I saw and evaluated Herminio Victor as part of a shared MANAGER TELECOM/PA visit. I personally reviewed the vital signs, [...] presents with a scortal abscess with possible Jose's gangrene in the setting of supratheraputic INR [...] is 76. Ok todischarge to floor per [facility]. documented in this encounter ED Notes * Kasisdy Morel RN - 05/23/2024 4:59 PM CDT [facility] ED Nurse Handoff Report ED Chief complaint: Penis/Scrotum Problem . ED Diagnosis: Final diagnoses: Supratherapeutic INR Jose's gangrene of scrotum (H28) Allergies: Allergies Allergen Reactions Dihydroxyaluminum Aminoacetate Nausea GI bleeding Aspirin GI Disturbance and Rash PN: LW Reaction: unknown Code Status: Full Code Activity level - Baseline/Home: assist of 1. Activity Level - Current: assist of 2. Lift room needed: No. Bariatric: No Signal Maintainer Helper Needed: No Isolation: No. Infection: Not [...] POS Antibody Screen Negative SPECIMEN EXPIRATION DATE [id number] BLOOD CULTURE ABO/RH TYPE AND SCREEN CT Abdomen Pelvis w Contrast Final Result IMPRESSION: 1. 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 2. Other chronic findings as discussed above. Findings were discussed with Dr. Kenna Coe at 2:35 PM. MIKE LIPSCOMB MD SYSTEM ID: [id number] Treatments provided: See MAR Family Comments: family [...] 500 mL intermittent infusion (1,750 mg Intravenous $NewBa 05/23/24 1434) piperacillin-tazobactam (ZOSYN) 2.25 g vial [...] Kassidy Morel RN 4:59 PM * Lilibeth Pena, LINDA - 05/23/2024 1:29 PM CDT Pt presents [...] the only site that works. * Vi Hernandez DO - 05/23/2024 1:22 PM CDT Emergency Department [...] POS Antibody Screen Negative SPECIMEN EXPIRATION DATE [id number] BLOOD CULTURE ABO/RH TYPE AND SCREEN Imaging CT Abdomen Pelvis w Contrast Final Result IMPRESSION: 1. 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 2. Other chronic findings as discussed above. Findings were discussed with Dr. Kenna Coe at 2:35 PM. MIKE LIPSCOMB MD SYSTEM ID: [id number] Independent Interpretation None ED Course Medications Administered [...] ml bag (0 g Intravenous Stopped 05/23/24 151) iopamidol (ISOVUE-370) solution 500 mL (93 mLs Intravenous $Given 05/23/24 1417) phytonadione (AQUAMEPHYTON) 10 MG/ML 10 mg in sodium chloride 0.9 % 50 mL intermittent infusion (10mg Intravenous $New Bag 05/23/24 1519) prothrombin 4 factor complex concentrate (KCENTRA) infusion 4,156 Units (4,156 Units Intravenous $Given 05/23/24 2447) Procedures Procedures Discussion of Management Urology, Poppy Greenwood and Dr. Cruz Admitting hospitalist, Dr. Cheek ED Course ED Course as of 05/23/241926May 23, 2024 1330 I obtained the history and examined the patient as above. 1342 I spoke with Popyp Greenwood from Urology regarding the patient's presentation [...] care. [address] Cheek [facility] who accepts 1620 Arianna Goodman (Mother) [phone] (Home Phone) Updated mom Additional Documentation None Medical Decision Making / Diagnosis [facility] Diagnoses: None MIPS None MDM [...] His initial exam is extremely concerning for Jose's gangrene with subcutaneous crepitus, sloughing necrotic skin [...] tissue infection of the scrotum, SCROTUM 2. Jose's gangrene of scrotum (H28) N49.3 Case Request: INCISION AND DRAINAGE, debridement of scrotal skin and subcutaneous tissues for necrotizing soft tissue infection of the scrotum, SCROTUM Case Request: INCISION AND DRAINAGE, debridement of scrotal skin and subcutaneous tissues for necrotizing soft tissue infection of the scrotum, SCROTUM Scribe Disclosure: I, Beba Marco A, am serving as a scribe at 1:28 PM on 05/23/2024 to document services personally performed by Vi Hernandez DO based on my observations and the provider's statements to me. Vi Hernandez DO 05/23/241926 * Lesley Avalos RN - 05/23/2024 1:14 PM CDT Bed: ED27 Expected date: 05/23/24 Expected time: Means of arrival: Ambulance Comments: [place] 332 documented in this encounter Miscellaneous Notes * Plan of Care - Rand Ochoa OTR - 05/30/2024 5:21 PM CDT Occupational Therapy Discharge Summary Reason for therapy discharge: Discharged to home with home therapy. Progress towards therapy goal(s). See goals on Care Plan in [facility] electronic health record for goal details. Goals partially met. Barriers to achieving goals: discharge from facility. Therapy recommendation(s): Continued therapy is recommended. Rationale/Recommendations: Patient appears safe and able todischarge home with intermittent assist from family with higher level IADLS (just like baseline). Pt wouldbeenfit from HHOT to progress ADL tolerance. Pt not seen by manual writer on this date, note written based on previous treating OT's note and recommendations. * Plan of Care - Joann Marinelli PT - 05/30/2024 5:21 PM CDT Physical Therapy Discharge Summary Reason for therapy discharge: Discharged to home with home therapy. Progress towards therapy goal(s). See goals on Care Plan in Epic electronic health record for goal details. Goals not met. Barriers to achieving goals: discharge from facility. Therapy recommendation(s): Continued therapy is recommended. Rationale/Recommendations: Rec home with assist for safe mobilityand HHPT to progress strength and IND mobility. * Pharmacy-Anticoagulation Service - Joni Steel RPH - 05/30/2024 3:00 PM CDT Images from the original note were not included. 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 INR Goal= 2-3 Warfarin THERAPEUTIC SPECIALIST Regimen: 5 mg M-F and No dose Sat, Sun Anticoagulation Dose History More data exists Latest Ref Rng & Units 05/23/2024 05/24/2024 05/26/2024 05/27/2024 05/28/2024 05/29/2024 05/30/2024 Recent Dosing and Labs warfarin ANTICOAGULANT (COUMADIN) 2 MG tablet - - - - 2 mg, $Given - - - warfarin ANTICOAGULANT (COUMADIN) 2.5 MG tablet - - - 2.5 mg, $Given - - - - warfarin ANTICOAGULANT (COUMADIN) 4 MG tablet - - - - - 4 mg, $Given 4 mg, $Given - INR 0.85 - 1.15 1.04 1.29 >10.00 1.16 1.14 1.67 1.81 1.87 1.92 2.26 Details Multiple values from one day are sorted in reverse-chronological order Vitamin K doses administered during the last 7 days: Yes FFP administered during the last 7 days: Agree with discharging the patient on their dining room captain warfarin regimen of 5 mg M-F and No dose Sat, Sun. INR to be checked Tuesday or Tuesday. * Plan of Care - Cecilia Crabtree RN - 05/30/2024 1:27 PM CDT Discharge Note Patient discharged to home via EMS/BLS. IV: Discontinued Prescriptions filled and given to patient/family. Belongings reviewed and sent with patient. Home medications returned to patient: NA Equipment sent with: wound supplies. patient verbalizes understanding of discharge instructions. AVS given to transport to provide to family . Additional education completed? Wound Care - attempted to reach family for education but unable. Dmitriy addressed tomorrow via home health. Cecilia Crabtree RN on 05/30/2024 at 5:15 PM * Plan of Care - Cecilia Crabtree RN - 05/30/2024 1:23 PM CDT RN attempted to call patient's aunt and mother for wound care teaching via ipad. Phone call was unanswered and voicemail not set up. Will attempt to reach again before 1500 discharge. Cecilia Crabtree RN on 05/30/2024 at 1:24 PM * Plan of Care - Margarette Griffin RN - 05/30/2024 7:42 AM CDT Pertinent assessments: Pt A/O, VSS on RA. Denies pain, nausea, SOB. Up assist x1 with walker. Scrotal wound with packing in place. B, 138. PIV SL. Tolerating renal diet, with good appetite. Loose BM x2 this shift. Major Shift Events: uneventful Treatment Plan: Zosyn, wound care and symptom management Bedside Nurse: Margarette Griffin RN Problem: Adult Inpatient Plan of Care Goal: Plan of Care Review Description: The Plan of Care Review/Shift note should be completed every shift. The Outcome Evaluation is a brief statement about your assessment that the patient is improving, declining, or no change. This information will be displayed automatically on your shift note. Outcome: Progressing Flowsheets (Taken 05/30/2024 0742) Outcome Evaluation: BM x2, scrotal packing in place, pain controlled Plan of Care Reviewed With: patient Overall [...] Manage Fall Risk Recent Flowsheet Documentation Taken 05/30/2024 0000 by Margarette Griffin RN Safety Promotion/Fall Prevention: activity supervised clutter free environment maintained Intervention: Prevent Skin Injury Recent Flowsheet Documentation Taken 05/30/2024 0000 by Margarette Griffin RN Device Skin Pressure Protection: absorbent pad utilized/changed Intervention: Prevent and Manage VTE (Venous Thromboembolism) Risk Recent Flowsheet Documentation Taken 05/30/2024 0000 by Margarette Griffin RN VTE Prevention/Management: SCDs off (sequential compression devices) Intervention: Prevent Infection Recent Flowsheet Documentation Taken 05/30/2024 0000 by Margarette Griffin RN Infection Prevention: rest/sleep promoted single patient room provided Goal: Optimal Comfort and Wellbeing Outcome: Progressing Goal: Readiness for Transition of Care Outcome: Progressing Problem: Infection Goal: Absence of Infection Signs and Symptoms Outcome: Progressing Problem: Comorbidity Management Goal: Blood Glucose Levels Within Targeted Range Outcome: Progressing Intervention: Monitor and Manage Glycemia Recent Flowsheet Documentation Taken 05/30/2024 0000 by Margarette Griffin RN Glycemic Management: blood glucose monitored Medication Review/Management: medications reviewed Problem: Skin Injury Risk Increased Goal: Skin Health and Integrity Outcome: Progressing Intervention: Plan: Nurse Driven Intervention: Moisture Management Recent Flowsheet Documentation Taken 05/30/2024 0000 by Margarette Griffin RN Moisture Interventions: Encourage regular toileting Incontinence pad Intervention: Optimize Skin Protection Recent Flowsheet Documentation Taken 05/30/2024 0000 by Margarette Griffin RN Pressure Reduction Techniques: frequent weight shift encouraged Activity Management: activity adjusted per tolerance Goal Outcome Evaluation: Plan of Care Reviewed With: patient Overall Patient Progress: improvingOverall Patient Progress: improving Outcome Evaluation: BM x2, scrotal packing in place, pain controlled * Plan of Care - Kristin Lauren RN - 05/29/2024 11:00 PM CDT To Do: End of Shift Summary For vital signs and complete assessments, please see documentation flowsheets. Pertinent assessments: Pt A/O. VSS on RA. Denies pain, nausea, SOB. Up assist x1 with walker. Scrotal wound care complete. B, 160. IV zosyn complete. PIV SL. Tolerating renal diet, with good appetite. BM x2 this shift Major Shift Events: uneventful Treatment Plan: Zosyn, wound care and symptom management Bedside Nurse: Marycruz Lauren RN Goal Outcome Evaluation: Plan of Care Reviewed With: patient Overall Patient Progress: improvingOverall Patient Progress: improving Outcome Evaluation: BM x2. Scrotal wound care complete. Problem: Adult Inpatient Plan of Care Goal: Plan of Care Review Description: The Plan of Care Review/Shift note should be completed every shift. The Outcome Evaluation is a brief statement about your assessment that the patient is improving, declining, or no change. This information will be displayed automatically on your shift note. Outcome: Progressing Flowsheets (Taken 05/29/2024 2300) Outcome Evaluation: BM x2. Scrotal wound care complete. Plan of Care Reviewed With: patient Overall [...] Manage Fall Risk Recent Flowsheet Documentation Taken 05/29/20242140 by Kristin Lauren RN Safety Promotion/Fall Prevention: activity supervised assistive device/personal items within reach clutter free environment maintained nonskid shoes/slippers when out of bed safety round/check completed Intervention: Prevent Infection Recent Flowsheet Documentation Taken 05/29/20242140 by Kristin Lauren RN Infection Prevention: single patient room provided rest/sleep promoted hand hygiene promoted Goal: Optimal Comfort and Wellbeing Outcome: Progressing Goal: Readiness for Transition of Care Outcome: Progressing Problem: Infection Goal: Absence of Infection Signs and Symptoms Outcome: Progressing Problem: Comorbidity Management Goal: Blood Glucose Levels Within Targeted Range Outcome: Progressing Intervention: Monitor and Manage Glycemia Recent Flowsheet Documentation Taken 05/29/20242140 by Kristin Lauren RN Medication Review/Management: medications reviewed Problem: Skin Injury Risk Increased Goal: Skin Health and Integrity Outcome: Progressing Intervention: Plan: Nurse Driven Intervention: Moisture Management Recent Flowsheet Documentation Taken 05/29/20241999 by Kristin Lauren RN Moisture Interventions: Encourage regular toileting Bathing/Skin Care: moisturizer applied Taken 05/29/20241831 by Kristin Lauren RN Moisture Interventions: Encourage regular toileting * Plan of Care - Edie Pack RN - 05/29/2024 3:41 PM CDT Goal Outcome Evaluation: Pertinent assessments: Pt A/O. VSS. Denies pain, nausea and SOB. Scrotal dressing changed. BG 121 &140. Up SBA. Up in chair this shift. BM x1. Denied pain. On renal diet with good appetite. PIV is SL. Continues on IV Zosyn. Afebrile Major Shift Events none Treatment Plan: Zosyn, wound care and symptom management Plan of Care Reviewed With: patient Overall Patient Progress: improvingOverall Patient Progress: improving Outcome Evaluation: VSS stable. Denied or discomfort Problem: Adult Inpatient Plan of Care Goal: Plan of Care Review Description: The Plan of Care Review/Shift note should be completed every shift. The Outcome Evaluation is a brief statement about your assessment that the patient is improving, declining, or no change. This information will be displayed automatically on your shift note. Outcome: Progressing Flowsheets (Taken 05/29/2024 1540) Outcome Evaluation: VSS stable. Denied or discomfort Plan of Care Reviewed With: patient Overall [...] Manage Fall Risk Recent Flowsheet Documentation Taken 05/29/2024899 by Edie Pack RN Safety Promotion/Fall Prevention: activity supervised assistive device/personal items within reach clutter free environment maintained nonskid shoes/slippers when out of bed safety round/check completed Intervention: Prevent Skin Injury Recent Flowsheet Documentation Taken 05/29/2024899 by Edie Pack RN Body Position: position changed independently Intervention: Prevent and Manage VTE (Venous Thromboembolism) Risk Recent Flowsheet Documentation Taken 05/29/2024899 by Edie Pack RN VTE Prevention/Management: SCDs off (sequential compression devices) Intervention: Prevent Infection Recent Flowsheet Documentation Taken 05/29/2024899 by Edie Pack RN Infection Prevention: single patient room provided rest/sleep promoted hand hygiene promoted Goal: Optimal Comfort and Wellbeing Outcome: Progressing Goal: Readiness for Transition of Care Outcome: Progressing Problem: Infection Goal: Absence of Infection Signs and Symptoms Outcome: Progressing Problem: Comorbidity Management Goal: Blood Glucose Levels Within Targeted Range Outcome: Progressing Intervention: Monitor and Manage Glycemia Recent Flowsheet Documentation Taken 05/29/2024899 by Edie Pack RN Glycemic Management: blood glucose monitored Medication Review/Management: medications reviewed Problem: Skin Injury Risk Increased Goal: Skin Health and Integrity Outcome: Progressing Intervention: Plan: Nurse Driven Intervention: Moisture Management Recent Flowsheet Documentation Taken 05/29/2024899 by Edie Pack RN Moisture Interventions: Encourage regular toileting Incontinence pad Bathing/Skin Care: incontinence care Intervention: Optimize Skin Protection Recent Flowsheet Documentation Taken 05/29/2024899 by Edie Pack RN Head of Bed (HOB) Positioning: HOB at 30 degrees * Plan of Care - Marce Leon RN - 05/29/2024 6:57 AM CDT To Do: End of Shift Summary For vital signs and complete assessments, please see documentation flowsheets. Pertinent assessments: Pt A/O. VSS. Denies pain, nausea and SOB. Scrotal dressing intact. BG 103. Up SBA Major Shift Events none Treatment Plan: Zosyn, wound care and symptom management Bedside Nurse: Marce Leon RN Problem: Adult Inpatient Plan of Care Goal: Plan of Care Review Description: The Plan of Care Review/Shift note should be completed every shift. The Outcome Evaluation is a brief statement about your assessment that the patient is improving, declining, or no change. This information will be displayed automatically on your shift note. Outcome: Progressing Flowsheets (Taken 05/29/2024 0657) Outcome Evaluation: Denies pain. continue with DID wound care Plan of Care Reviewed With: patient Overall [...] Manage Fall Risk Recent Flowsheet Documentation Taken 05/29/2024 020 by Marce Leon RN Safety Promotion/Fall Prevention: activity supervised clutter free environment maintained increase visualization of patient nonskid shoes/slippers when out of bed safety round/check completed room near nurse's station Intervention: Prevent Skin Injury Recent Flowsheet Documentation Taken 05/29/2024 002 by Marce Leon RN Body Position: position changed independently Intervention: Prevent and Manage VTE (Venous Thromboembolism) Risk Recent Flowsheet Documentation Taken 05/29/2024 002 by Marce Leon RN VTE Prevention/Management: SCDs off (sequential compression devices) Goal: Optimal Comfort and Wellbeing Outcome: Progressing Goal: Readiness for Transition of Care Outcome: Progressing Problem: Infection Goal: Absence of Infection Signs and Symptoms Outcome: Progressing Problem: Comorbidity Management Goal: Blood Glucose Levels Within Targeted Range Outcome: Progressing Intervention: Monitor and Manage Glycemia Recent Flowsheet Documentation Taken 05/29/2024 020 by Marce Leon RN Glycemic Management: blood glucose monitored Medication Review/Management: medications reviewed Problem: Skin Injury Risk Increased Goal: Skin Health and Integrity Outcome: Progressing Intervention: Optimize Skin Protection Recent Flowsheet Documentation Taken 05/29/2024 0020 by Marce Leon RN Head of Bed (HOB) Positioning: HOB at 20 degrees Goal Outcome Evaluation: Plan of Care Reviewed With: patient Overall Patient Progress: improvingOverall Patient Progress: improving Outcome Evaluation: Denies pain. continue with DID wound care * Plan of Care - Heidi Koo RN - 05/28/2024 11:25 PM CDT Goal Outcome Evaluation: Plan of Care Reviewed With: patient Overall Patient Progress: improvingOverall Patient Progress: improving Outcome Evaluation: no c/o pain. up with sba. loose stools incontinent at times. scrotul drsg changed x1. eating well. Problem: Adult Inpatient Plan of Care Goal: Plan of Care Review Description: The Plan of Care Review/Shift note should be completed every shift. The Outcome Evaluation is a brief statement about your assessment that the patient is improving, declining, or no change. This information will be displayed automatically on your shift note. Outcome: Progressing Flowsheets (Taken 05/28/2024 2324) Outcome Evaluation: no c/o pain. up with sba. loose stools incontinent at times. scrotul drsg changed x1. eating well. Plan of Care Reviewed With: patient Overall [...] Illness or Injury Outcome: Progressing Intervention: Prevent Skin Injury Recent Flowsheet Documentation Taken 05/28/20242051 by Heidi Koo RN Body Position: supine, head elevated Device Skin Pressure Protection: absorbent pad utilized/changed Taken 05/28/2024 1855 by Heidi Koo RN Body Position: supine, head elevated Intervention: Prevent and Manage VTE (Venous Thromboembolism) Risk Recent Flowsheet Documentation Taken 05/28/2024 1621 by Heidi Koo RN VTE Prevention/Management: SCDs off (sequential compression devices) Goal: Optimal Comfort and [...] Intervention: Moisture Management Recent Flowsheet Documentation Taken 05/28/20242051 by Heidi Koo RN Moisture Interventions: Encourage regular toileting Incontinence pad Perineal cleanser Bathing/Skin Care: linen changed Intervention: Optimize Skin Protection Recent Flowsheet Documentation Taken 05/28/2024 232 by Heidi Koo RN Activity Management: ambulated to bathroom Taken 05/28/20242051 by Heidi Koo RN Activity Management: ambulated to bathroom Taken 05/28/2024 1855 by Heidi Koo RN Activity Management: back to bed * Plan of Care - Edie Pack RN - 05/28/2024 3:25 PM CDT Goal Outcome Evaluation: Pertinent assessments:A&Ox4. Disoriented to situation and time. VSS on RA. 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 Dressing changed to scrotal wound. B & 91. No coverage needed. Off the unit for dialysis. 2L fluids taken per report. Denied pain or discomfort. Major Shift Events: Hemodialysis Treatment Plan: IV zosyn, Dialysis MWF, WOC,Urology,neph, ID and CC following. Plan of Care Reviewed With: patient Overall Patient Progress: improvingOverall Patient Progress: improving Outcome Evaluation: Denied pain. VSS Problem: Adult Inpatient Plan of Care Goal: Plan of Care Review Description: The Plan of Care Review/Shift note should be completed every shift. The Outcome Evaluation is a brief statement about your assessment that the patient is improving, declining, or no change. This information will be displayed automatically on your shift note. Outcome: Progressing Flowsheets (Taken 05/28/2024 1525) Outcome Evaluation: Denied pain. VSS Plan of Care Reviewed With: patient Overall [...] Manage Fall Risk Recent Flowsheet Documentation Taken 05/28/2024809 by Edie Pack RN Safety Promotion/Fall Prevention: activity supervised assistive device/personal items within reach clutter free environment maintained nonskid shoes/slippers when out of bed safety round/check completed Intervention: Prevent Skin Injury Recent Flowsheet Documentation Taken 05/28/2024809 by Edie Pack RN Body Position: position changed independently Intervention: Prevent and Manage VTE (Venous Thromboembolism) Risk Recent Flowsheet Documentation Taken 05/28/2024809 by Edie Pack RN VTE Prevention/Management: SCDs off (sequential compression devices) Intervention: Prevent Infection Recent Flowsheet Documentation Taken 05/28/2024809 by Edie Pack RN Infection Prevention: single patient room provided rest/sleep promoted hand hygiene promoted Goal: Optimal Comfort and Wellbeing Outcome: Progressing Intervention: Monitor Pain and Promote Comfort Recent Flowsheet Documentation Taken 05/28/2024809 by Edie Pack RNmigratory game bird biologist Interventions: declines Goal: Readiness for Transition of Care Outcome: Progressing Problem: Infection Goal: Absence of Infection Signs and Symptoms Outcome: Progressing Problem: Comorbidity Management Goal: Blood Glucose Levels Within Targeted Range Outcome: Progressing Intervention: Monitor and Manage Glycemia Recent Flowsheet Documentation Taken 05/28/2024809 by Edie Pack RN Glycemic Management: blood glucose monitored Medication Review/Management: medications reviewed Problem: Skin Injury Risk Increased Goal: Skin Health and Integrity Outcome: Progressing Intervention: Plan: Nurse Driven Intervention: Moisture Management Recent Flowsheet Documentation Taken 05/28/2024809 by Edie Pack RN Moisture Interventions: Encourage regular toileting Bathing/Skin Care: incontinence care Intervention: Optimize Skin Protection Recent Flowsheet Documentation Taken 05/28/2024809 by Edie Pack RN Activity Management: activity adjusted per tolerance Head of Bed (HOB) Positioning: HOB at 30 degrees * Plan of Care - Wilver Jones RN - 05/28/2024 6:55 AM CDT Goal Outcome Evaluation: Plan of Care Reviewed With: patient Overall Patient Progress: improvingOverall Patient Progress: improving Outcome Evaluation: Denies pain, slept well. To Do: End of Shift Summary For vital signs and complete assessments, please see documentation flowsheets. Pertinent assessments: Assumed cares @ [id number].Disoriented to situation and time. VSS on RA. 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 Scrotal wound CDI. BG: No BM this shift. Repositioned as needed. Major Shift Events: Hemodialysis due today. Treatment Plan: IV zosyn, Dialysis MWF, WOC,Urology,neph, ID and CC following. Bedside Nurse: Wilver Jones RN Problem: Adult Inpatient Plan of Care Goal: Plan of Care Review Description: The Plan of Care Review/Shift note should be completed every shift. The Outcome Evaluation is a brief statement about your assessment that the patient is improving, declining, or no change. This information will be displayed automatically on your shift note. Outcome: Progressing Flowsheets (Taken 05/28/2024 0672) Outcome Evaluation: Denies pain, slept well. Goal: Patient-Specific Goal (Individualized) Description: You can [...] Manage Fall Risk Recent Flowsheet Documentation Taken 05/27/20242306 by Wilver Jones RN Safety Promotion/Fall Prevention: activity supervised assistive device/personal items within reach Intervention: Prevent Skin Injury Recent Flowsheet Documentation Taken 05/27/20242306 by Wilver Jones RN Body Position: position changed independently Skin Protection: incontinence pads utilized Device Skin Pressure Protection: absorbent pad utilized/changed Intervention: Prevent and Manage VTE (Venous Thromboembolism) Risk Recent Flowsheet Documentation Taken 05/27/20242306 by Wilver Jones RN VTE Prevention/Management: SCDs off (sequential compression devices) Intervention: Prevent Infection Recent Flowsheet Documentation Taken 05/27/20242306 by Wilver Jones RN Infection Prevention: single patient room provided Goal: Optimal Comfort and Wellbeing Outcome: Progressing Goal: Readiness for Transition of Care Outcome: Progressing Problem: Infection Goal: Absence of Infection Signs and Symptoms Outcome: Progressing Problem: Comorbidity Management Goal: Blood Glucose Levels Within Targeted Range Outcome: Progressing Intervention: Monitor and Manage Glycemia Recent Flowsheet Documentation Taken 05/27/20242306 by Wilver Jones RN Medication Review/Management: medications reviewed Problem: Skin Injury Risk Increased Goal: Skin Health and Integrity Outcome: Progressing Intervention: Plan: Nurse Driven Intervention: Moisture Management Recent Flowsheet Documentation Taken 05/27/20242306 by Wilver Jones RN Moisture Interventions: Encourage regular toileting Intervention: Optimize Skin Protection Recent Flowsheet Documentation Taken 05/27/20242306 by Wilver Jones RN Pressure Reduction Devices: positioning supports utilized Skin Protection: incontinence pads utilized Activity Management: activity adjusted per tolerance Head of Bed (HOB) Positioning: HOB at 30 degrees * Plan of Care - Kristin Lauren RN - 05/27/2024 10:32 PM CDT To Do: End of Shift Summary For vital signs and complete assessments, please see documentation flowsheets. Pertinent assessments: Disoriented to situation and time. VSS on RA. 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 Scrotal wound care complete. B, 148. No BM this shift. Major Shift Events: uneventful Treatment Plan: IV zosyn, Dialysis MWF, WOC,Urology,neph, ID and CC following. Bedside Nurse: Marycruz Lauren RN Goal Outcome Evaluation: Plan of Care Reviewed With: patient Overall Patient Progress: improvingOverall Patient Progress: improving Outcome Evaluation: Wound care complete. BG 148 Problem: Adult Inpatient Plan of Care Goal: Plan of Care Review Description: The Plan of Care Review/Shift note should be completed every shift. The Outcome Evaluation is a brief statement about your assessment that the patient is improving, declining, or no change. This information will be displayed automatically on your shift note. Outcome: Progressing Flowsheets (Taken 05/27/20242231) Outcome Evaluation: Wound care complete. BG 148 Plan of Care Reviewed With: patient Overall [...] Manage Fall Risk Recent Flowsheet Documentation Taken 05/27/20241808 by Kristin Lauren RN Safety Promotion/Fall Prevention: activity supervised assistive device/personal items within reach clutter free environment maintained nonskid shoes/slippers when out of bed safety round/check completed Intervention: Prevent Infection Recent Flowsheet Documentation Taken 05/27/20241808 by Kristin Lauren RN Infection Prevention: single patient room provided rest/sleep promoted hand hygiene promoted Goal: Optimal Comfort and Wellbeing Outcome: Progressing Goal: Readiness for Transition of Care Outcome: Progressing Problem: Infection Goal: Absence of Infection Signs and Symptoms Outcome: Progressing Problem: Comorbidity Management Goal: Blood Glucose Levels Within Targeted Range Outcome: Progressing Intervention: Monitor and Manage Glycemia Recent Flowsheet Documentation Taken 05/27/20241808 by Kristin Lauren RN Medication Review/Management: medications reviewed Problem: Skin Injury Risk Increased Goal: Skin Health and Integrity Outcome: Progressing Intervention: Plan: Nurse Driven Intervention: Moisture Management Recent Flowsheet Documentation Taken 05/27/20241935 by Kristin Lauren RN Moisture Interventions: Encourage regular toileting Bathing/Skin Care: moisturizer applied Taken 05/27/20241808 by Kristin Lauren RN Moisture Interventions: Encourage regular toileting Intervention: Optimize Skin Protection Recent Flowsheet Documentation Taken 05/27/20241935 by Kristin Lauren RN Activity Management: activity adjusted per tolerance * Plan of Care - Edie Pack RN - 05/27/2024 2:19 PM CDT Goal Outcome Evaluation: Pertinent assessments: A&Ox2. Disoriented to time & situation. VSS. On RA. Denied pain. Assist x1. PIV is SL. On renal diet with good appetite. PIV is SL. BG were 108 & 149. Coverage insulin given at noon. Continues on Zosyn Q8hrs. Afebrile. Dressing change to sacral wound completed forthis shift. Request PT/OT orders to assess mobility. Orders received. Major Shift Events: PT/OT orders, Dressing changed to sacral incision. Treatment Plan: IV zosyn, Dialysis MWF, WOC,Urology,neph, ID and CC following. Bedside Nurse: Edie Pack RN Plan of Care Reviewed With: patient Overall Patient Progress: improvingOverall Patient Progress: improving Outcome Evaluation: Denies pain or discomfort. Dressing change completed Problem: Adult Inpatient Plan of Care Goal: Plan of Care Review Description: The Plan of Care Review/Shift note should be completed every shift. The Outcome Evaluation is a brief statement about your assessment that the patient is improving, declining, or no change. This information will be displayed automatically on your shift note. Outcome: Progressing Flowsheets (Taken 05/27/2024 1419) Outcome Evaluation: Denies pain or discomfort. Dressing change completed Plan of Care Reviewed With: patient Overall [...] Manage Fall Risk Recent Flowsheet Documentation Taken 05/27/2024 0920 by Edie Pack RN Safety Promotion/Fall Prevention: activity supervised assistive device/personal items within reach clutter free environment maintained nonskid shoes/slippers when out of bed safety round/check completed Intervention: Prevent Skin Injury Recent Flowsheet Documentation Taken 05/27/2024919 by Edie Pack RN Body Position: position changed independently Intervention: Prevent and Manage VTE (Venous Thromboembolism) Risk Recent Flowsheet Documentation Taken 05/27/2024919 by Edie Pack RN VTE Prevention/Management: SCDs off (sequential compression devices) Intervention: Prevent Infection Recent Flowsheet Documentation Taken 05/27/2024919 by Edie Pack RN Infection Prevention: single patient room provided rest/sleep promoted hand hygiene promoted Goal: Optimal Comfort and Wellbeing Outcome: Progressing Intervention: Monitor Pain and Promote Comfort Recent Flowsheet Documentation Taken 05/27/2024919 by Edie Pack RNmigratory game bird biologist Interventions: declines Goal: Readiness for Transition of Care Outcome: Progressing Problem: Infection Goal: Absence of Infection Signs and Symptoms Outcome: Progressing Problem: Comorbidity Management Goal: Blood Glucose Levels Within Targeted Range Outcome: Progressing Intervention: Monitor and Manage Glycemia Recent Flowsheet Documentation Taken 05/27/2024919 by Edie Pack RN Glycemic Management: blood glucose monitored Medication Review/Management: medications reviewed Problem: Skin Injury Risk Increased Goal: Skin Health and Integrity Outcome: Progressing Intervention: Plan: Nurse Driven Intervention: Moisture Management Recent Flowsheet Documentation Taken 05/27/2024919 by Edie Pack RN Moisture Interventions: Encourage regular toileting Taken 05/27/2024 08 by Edie Pack RN Moisture Interventions: Incontinence pad Bathing/Skin Care: incontinence care Intervention: Optimize Skin Protection Recent Flowsheet Documentation Taken 05/27/2024919 by Edie Pack RN Activity Management: bedrest Head of Bed (HOB) Positioning: HOB at 30 degrees * Plan of Care - Wilver Jones RN - 05/27/2024 7:02 AM CDT Goal Outcome Evaluation: Plan of Care Reviewed With: patient Overall Patient Progress: improvingOverall Patient Progress: improving Outcome Evaluation: Denies pain. tolerated renal diet. Scrotum wound CDI To Do: End of Shift Summary For vital signs and complete assessments, please see documentation flowsheets. Pertinent assessments: Assumed cares @ [phone].Disoriented to time and situation. VSS on RA. Denies pain, nausea, SOB. 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 Scrotal wound CDI. AC HS B Major Shift Events: uneventful Treatment Plan: IV zosyn, Dialysis MWF, WOC,Urology,neph, ID and CC following. Bedside Nurse: Wilver Jones RN Problem: Adult Inpatient Plan of Care Goal: Plan of Care Review Description: The Plan of Care Review/Shift note should be completed every shift. The Outcome Evaluation is a brief statement about your assessment that the patient is improving, declining, or no change. This information will be displayed automatically on your shift note. Outcome: Progressing Flowsheets (Taken 05/27/2024 0701) Outcome Evaluation: Denies pain. tolerated renal diet. Scrotum wound CDI Plan of Care Reviewed With: patient Overall [...] Manage Fall Risk Recent Flowsheet Documentation Taken 05/26/20242327 by Wilver Jones RN Safety Promotion/Fall Prevention: activity supervised assistive device/personal items within reach Intervention: Prevent Skin Injury Recent Flowsheet Documentation Taken 05/26/20242327 by Wilver Jones RN Body Position: weight shifting Intervention: Prevent Infection Recent Flowsheet Documentation Taken 05/26/20242327 by Wilver Jones RN Infection Prevention: rest/sleep promoted single patient room provided Goal: Optimal Comfort and Wellbeing Outcome: Progressing Goal: Readiness for Transition of Care Outcome: Progressing Problem: Infection Goal: Absence of Infection Signs and Symptoms Outcome: Progressing Problem: Comorbidity Management Goal: Blood Glucose Levels Within Targeted Range Outcome: Progressing Intervention: Monitor and Manage Glycemia Recent Flowsheet Documentation Taken 05/26/20242327 by Wilver Jones RN Medication Review/Management: medications reviewed Problem: Skin Injury Risk Increased Goal: Skin Health and Integrity Outcome: Progressing Intervention: Plan: Nurse Driven Intervention: Moisture Management Recent Flowsheet Documentation Taken 05/26/20242327 by Wilver Jones RN Moisture Interventions: Encourage regular toileting Intervention: Optimize Skin Protection Recent Flowsheet Documentation Taken 05/26/20242327 by Wilver Jones RN Activity Management: bedrest Head of Bed (HOB) Positioning: HOB at 20-30 degrees * Plan of Care - Kristin Lauren RN - 05/26/2024 10:41 PM CDT To Do: End of Shift Summary For vital signs and complete assessments, please see documentation flowsheets. Pertinent assessments: Disoriented to time and situation. VSS on RA. Denies pain, nausea, SOB. PRN senna given for constipation. 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 One time dose of warfarin given - INR 1.67. Scrotal wound care complete. B, 155. Major Shift Events: uneventful Treatment Plan: IV zosyn, Dialysis MWF, WOC,Urology,neph, ID and CC following. Bedside Nurse: Marycruz Lauren RN Goal Outcome Evaluation: Plan of Care Reviewed With: patient Overall Patient Progress: improvingOverall Patient Progress: improving Outcome Evaluation: IV zosyn. Denies pain. Tolerating renal diet. Problem: Adult Inpatient Plan of Care Goal: Plan of Care Review Description: The Plan of Care Review/Shift note should be completed every shift. The Outcome Evaluation is a brief statement about your assessment that the patient is improving, declining, or no change. This information will be displayed automatically on your shift note. Outcome: Progressing Flowsheets (Taken 05/26/2024 2241) Outcome Evaluation: IV zosyn. Denies pain. Tolerating renal diet. Plan of Care Reviewed With: patient Overall [...] Manage Fall Risk Recent Flowsheet Documentation Taken 05/26/20241702 by Kristin Lauren RN Safety Promotion/Fall Prevention: activity supervised assistive device/personal items within reach clutter free environment maintained nonskid shoes/slippers when out of bed safety round/check completed Intervention: Prevent and Manage VTE (Venous Thromboembolism) Risk Recent Flowsheet Documentation Taken 05/26/2024 170 by Kristin Lauren RN VTE Prevention/Management: SCDs off (sequential compression devices) Intervention: Prevent Infection Recent Flowsheet Documentation Taken 05/26/2024 170 by Kristin Lauren RN Infection Prevention: single patient room provided rest/sleep promoted hand hygiene promoted Goal: Optimal Comfort and Wellbeing Outcome: Progressing Goal: Readiness for Transition of Care Outcome: Progressing Problem: Infection Goal: Absence of Infection Signs and Symptoms Outcome: Progressing Problem: Comorbidity Management Goal: Blood Glucose Levels Within Targeted Range Outcome: Progressing Intervention: Monitor and Manage Glycemia Recent Flowsheet Documentation Taken 05/26/20241702 by Kristin Lauren RN Medication Review/Management: medications reviewed Problem: Skin Injury Risk Increased Goal: Skin Health and Integrity Outcome: Progressing Intervention: Plan: Nurse Driven Intervention: Moisture Management Recent Flowsheet Documentation Taken 05/26/20241927 by Kristin Lauren RN Moisture Interventions: Encourage regular toileting No brief in bed Bathing/Skin Care: other (see comments) Taken 05/26/20241702 by Kristin Lauren RN Moisture Interventions: Encourage regular toileting Incontinence pad Intervention: Optimize Skin Protection Recent Flowsheet Documentation Taken 05/26/20241702 by Kristin Lauren RN Activity Management: bedrest * Pharmacy-Anticoagulation Service - Luis Collado RPH - 05/26/2024 4:50 PM CDT Clinical Pharmacy - Warfarin Dosing Consult Pharmacy has been consulted to manage this patient???s warfarin therapy. Indication: DVT/PE Prophylaxis Therapy Goal: INR 2-3 Warfarin Prior to Admission: Yes Warfarin THERAPEUTIC SPECIALIST Regimen: 5 mg M-F and No dose Sat, Sun Recent documented change in oral intake/nutrition: Unknown Dose Comments: INR 1.67. Restart warfarin conservatively with 2.5 mg today INR Date Value Ref Range Status 05/26/2024 1.67 (H) 0.85 - 1.15 Final 05/24/2024 1.16 (H) 0.85 - 1.15 Final Recommend warfarin 2.5 mg today. Pharmacy will monitor Herminio Victor daily and order warfarindoses to achieve specified goal. Please contact pharmacy as soon as possible if the warfarin needs to be held for a procedure or if the warfarin goals change. * Plan of Care - Mirtha Warner RN - 05/26/2024 3:24 PM CDT BP 122/47 (BP Location: Right arm) Pulse 79 Temp 98.7 ??F (37.1 ??C) (Oral) Resp 12 Ht 1.626 m (5' 4) Wt 84 kg (185 lb 3 oz) SpO2 95% BMI 31.79 kg/m?? Neuro: disoriented to situation/time Cardiac: WNL Lungs: WNL GI: WNL : on hemodialysis Pain: denies IV: saline locked x Meds: zosyn Labs/tests: creat 5.84, hgb 8.0 Diet: renal Activity: assist x2/lift Misc: BG ACHS. Fistula R inner thigh. Dressing change x2day. Dialysis MWF. WOC/nephrology/urology/ID following Plan: Currently resting in bed, able to make need known. Problem: Adult Inpatient Plan of Care Goal: Plan of Care Review Description: The Plan of Care Review/Shift note should be completed every shift. The Outcome Evaluation is a brief statement about your assessment that the patient is improving, declining, or no change. This information will be displayed automatically on your shift note. Outcome: Progressing Flowsheets (Taken 05/26/2024 1524) Outcome Evaluation: renal diet. denies pain/nausea Plan of Care Reviewed With: patient Overall [...] Manage Fall Risk Recent Flowsheet Documentation Taken 05/26/2024814 by Mirtha Warner RN Safety Promotion/Fall Prevention: activity supervised assistive device/personal items within reach clutter free environment maintained nonskid shoes/slippers when out of bed safety round/check completed Intervention: Prevent Skin Injury Recent Flowsheet Documentation Taken 05/26/2024814 by Mirtha Warner RN Body Position: weight shifting Intervention: Prevent and Manage VTE (Venous Thromboembolism) Risk Recent Flowsheet Documentation Taken 05/26/2024814 by Mirtha Warner RN VTE Prevention/Management: SCDs on (sequential compression devices) Goal: Optimal Comfort and Wellbeing Outcome: Progressing Goal: Readiness for Transition of Care Outcome: Progressing Problem: Infection Goal: Absence of Infection Signs and Symptoms Outcome: Progressing Problem: Comorbidity Management Goal: Blood Glucose Levels Within Targeted Range Outcome: Progressing Intervention: Monitor and Manage Glycemia Recent Flowsheet Documentation Taken 05/26/2024814 by Mirtha Warner RN Medication Review/Management: medications reviewed Problem: Skin Injury Risk Increased Goal: Skin Health and Integrity Outcome: Progressing Intervention: Plan: Nurse Driven Intervention: Moisture Management Recent Flowsheet Documentation Taken 05/26/2024814 by Mirtha Warner RN Moisture Interventions: Encourage regular toileting Incontinence pad Intervention: Optimize Skin Protection Recent Flowsheet Documentation Taken 05/26/2024814 by Mirtha Warner RN Activity Management: bedrest Head of Bed (HOB) Positioning: HOB at 20-30 degrees Goal Outcome Evaluation: Plan of Care Reviewed With: patient Overall Patient Progress: improvingOverall Patient Progress: improving Outcome Evaluation: renal diet. denies pain/nausea * Plan of Care - Laura Aggarwal RN - 05/26/2024 5:57 AM CDT End of Shift Summary For vital signs and complete assessments, please see documentation flowsheets. Pertinent assessments: VSS, room air, afebrile, Denies pain/nausea, no SOB, lung sounds diminished,bowel sounds hypo, dialysis fistula to left thigh, scrotal area packed with minimal drainage noted Major Shift Events: slept well between cares Treatment Plan: IV cleocin, IV zosyn, Dialysis MWF, WOC,Urology,neph, ID and CC following. Bedside Nurse: Laura Aggarwal RN Problem: Adult Inpatient Plan of Care Goal: Plan of Care Review Description: The Plan of Care Review/Shift note should be completed every shift. The Outcome Evaluation is a brief statement about your assessment that the patient is improving, declining, or no change. This information will be displayed automatically on your shift note. Outcome: Not Progressing Flowsheets (Taken 05/26/2024 0556) Outcome Evaluation: NPO at midnight per orders, denies any pain/nausea Plan of Care Reviewed With: patient Overall [...] Manage Fall Risk Recent Flowsheet Documentation Taken 05/26/2024 003 by Laura Aggarwal RN Safety Promotion/Fall Prevention: increase visualization of patient Intervention: Prevent Skin Injury Recent Flowsheet Documentation Taken 05/26/202435 by Laura Aggarwal RN Body Position: position changed independently Intervention: Prevent and Manage VTE (Venous Thromboembolism) Risk Recent Flowsheet Documentation Taken 05/26/2024 003 by Laura Aggarwal RN VTE Prevention/Management: SCDs off (sequential compression devices) Goal: Optimal Comfort and Wellbeing Outcome: Not Progressing Goal: Readiness for Transition of Care Outcome: Not Progressing Goal Outcome Evaluation: Plan of Care Reviewed With: patient Overall Patient Progress: no changeOverall Patient Progress: no change Outcome Evaluation: NPO at midnight per orders, denies any pain/nausea, cultures pending * Plan of Care - Derek Shafer RN - 05/25/2024 11:19 PM CDT Pt is alert able to make needs known. Pt denies pain pt wound dressing is clean dry and intact. Pt is on Clindamycin, zosyn and Vanco. Pt is NPO midnight. Pt is on on dialysis. Fistula in intact. Pt is assist of two in transfer and cares. Pt is sleeping in bed. Bed alarm in place and call light within reach. Goal Outcome Evaluation: Plan of Care Reviewed With: patient Overall Patient Progress: improvingOverall Patient Progress: improving Outcome Evaluation: pt is on blood suagr checks. pt is NPO midnight Problem: Adult Inpatient Plan of Care Goal: Plan of Care Review Description: The Plan of Care Review/Shift note should be completed every shift. The Outcome Evaluation is a brief statement about your assessment that the patient is improving, declining, or no change. This information will be displayed automatically on your shift note. Outcome: Progressing Flowsheets (Taken 05/25/20242151) Outcome Evaluation: pt is on blood suagr checks. pt is NPO midnight Plan of Care Reviewed With: patient Overall [...] Manage Fall Risk Recent Flowsheet Documentation Taken 05/25/20242021 by Derek Shafer RN Safety Promotion/Fall Prevention: assistive device/personal items within reach activity supervised nonskid shoes/slippers when out of bed patient and family education room organization consistent safety round/check completed increased rounding and observation clutter free environment maintained Intervention: Prevent Skin Injury Recent Flowsheet Documentation Taken 05/25/20242021 by Derek Shafer RN Body Position: position changed independently Intervention: Prevent and Manage VTE (Venous Thromboembolism) Risk Recent Flowsheet Documentation Taken 05/25/20242021 by Derek Shafer RN VTE Prevention/Management: SCDs off (sequential compression devices) Intervention: Prevent Infection Recent Flowsheet Documentation Taken 05/25/20242021 by Derek Shafer RN Infection Prevention: single patient room provided rest/sleep promoted hand hygiene promoted Goal: Optimal Comfort and Wellbeing Outcome: Progressing Goal: Readiness for Transition of Care Outcome: Progressing Problem: Infection Goal: Absence of Infection Signs and Symptoms Outcome: Progressing Problem: Comorbidity Management Goal: Blood Glucose Levels Within Targeted Range Outcome: Progressing Intervention: Monitor and Manage Glycemia Recent Flowsheet Documentation Taken 05/25/20242021 by Derek Shafer RN Medication Review/Management: medications reviewed Problem: Skin Injury Risk Increased Goal: Skin Health and Integrity Outcome: Progressing Intervention: Plan: Nurse Driven Intervention: Moisture Management Recent Flowsheet Documentation Taken 05/25/20242021 by Derek Shafer RN Moisture Interventions: Incontinence pad Intervention: Optimize Skin Protection Recent Flowsheet Documentation Taken 05/25/20242021 by Derek Shafer RN Activity Management: bedrest Head of Bed (HOB) Positioning: HOB at 30-45 degrees * Plan of Care - Chris Mcduffie RN - 05/25/2024 8:08 PM CDT Goal Outcome Evaluation: Plan of Care Reviewed With: patient Overall Patient Progress: no changeOverall Patient Progress: no change To Do: End of Shift Summary For vital signs and complete assessments, please see documentation flowsheets. Pertinent assessments: Pt alert to self. VSS, Denies pain, and SOB, very hungry, had extra dinner, blood sugar checked after eating was 183 but the one before food was 142, New IV placed because of Vancomycin IV infusion, bedrest, dressing intact on scrotum Major Shift Events : None. Treatment Plan: IV cleocin, IV zosyn,ID, Dialysis MWF, WOC,Urology,neph and CC following. Problem: Adult Inpatient Plan of Care Goal: Plan of Care Review Description: The Plan of Care Review/Shift note should be completed every shift. The Outcome Evaluation is a brief statement about your assessment that the patient is improving, declining, or no change. This information will be displayed automatically on your shift note. Outcome: Progressing Flowsheets (Taken 05/25/20242007) Plan of Care Reviewed With: patient Overall [...] Illness or Injury Outcome: Progressing Intervention: Prevent Skin Injury Recent Flowsheet Documentation Taken 05/25/2024 172 by Chris Mcduffie RN Body Position: position changed independently Intervention: Prevent and Manage VTE (Venous Thromboembolism) Risk Recent Flowsheet Documentation Taken 05/25/2024 172 by Chris Mcduffie RN VTE Prevention/Management: SCDs off (sequential compression devices) Goal: Optimal Comfort and Wellbeing Outcome: Progressing Goal: Readiness for Transition of Care Outcome: Progressing Problem: Infection Goal: Absence of Infection Signs and Symptoms Outcome: Progressing Problem: Comorbidity Management Goal: Blood Glucose Levels Within Targeted Range Outcome: Progressing Problem: Skin Injury Risk Increased Goal: Skin Health and Integrity Outcome: Progressing Intervention: Optimize Skin Protection Recent Flowsheet Documentation Taken 05/25/2024 1721 by Chris Mcudffie RN Activity Management: bedrest Head of Bed (HOB) Positioning: HOB at 30-45 degrees * Plan of Care - Jessica Paz RN - 05/25/2024 4:04 PM CDT Goal Outcome Evaluation: End of Shift Summary For vital signs and complete assessments, please see documentation flowsheets. Pertinent assessments: Pt alert to self. Vss and on RA. LS dim and no sob noted. Had some pain medsprior to dressing change and IV dilaudid given. Incision changed with some purulent and serosanguinous drainage. BG 86.70. Tolerated diet and no nausea reported. Major Shift Events : None. Treatment Plan: IV cleocin, IV zosyn,ID, Dialysis MWF, WOC,Urology,neph and CC following. Bedside Nurse: Jessica Paz RN Plan of Care Reviewed With: patient Overall Patient Progress: improvingOverall Patient Progress: improving Outcome Evaluation: Wound care done and Pt tolerated procedure. Alert x2. Problem: Adult Inpatient Plan of Care Goal: Plan of Care Review Description: The Plan of Care Review/Shift note should be completed every shift. The Outcome Evaluation is a brief statement about your assessment that the patient is improving, declining, or no change. This information will be displayed automatically on your shift note. Outcome: Progressing Flowsheets (Taken 05/25/2024 1603) Outcome Evaluation: Wound care done and Pt tolerated procedure. Alert x2. Plan of Care Reviewed With: patient Overall [...] (Venous Thromboembolism) Risk Recent Flowsheet Documentation Taken 05/25/2024 0910 by Jessica Paz RN VTE Prevention/Management: SCDs off (sequential compression devices) Intervention: Prevent Infection Recent Flowsheet Documentation Taken 05/25/2024 0910 by Jessica Paz RN Infection Prevention: personal protective equipment utilized Goal: Optimal Comfort and Wellbeing Outcome: Progressing Intervention: Monitor Pain and Promote Comfort Recent Flowsheet Documentation Taken 05/25/2024 0844 by Jessica Paz RN Pain Management Interventions: medication (see MAR) Goal: Readiness for Transition of Care Outcome: Progressing Problem: Infection Goal: Absence of Infection Signs and Symptoms Outcome: Progressing Problem: Comorbidity Management Goal: Blood Glucose Levels Within Targeted Range Outcome: Progressing Intervention: Monitor and Manage Glycemia Recent Flowsheet Documentation Taken 05/25/2024 0910 by Jessica Paz RN Medication Review/Management: medications reviewed Problem: Skin Injury Risk Increased Goal: Skin Health and Integrity Outcome: Progressing Intervention: Plan: Nurse Driven Intervention: Moisture Management Recent Flowsheet Documentation Taken 05/25/2024 0800 by Jessica Paz RN Moisture Interventions: Other (comment) Bathing/Skin Care: other (see comments) Intervention: Optimize Skin Protection Recent Flowsheet Documentation Taken 05/25/2024 0910 by Jessica Paz RN Activity Management: bedrest * Pharmacy-Vancomycin Dosing Service - Chucho Zuluaga [facility] - 05/25/2024 3:31 PM CDT Pharmacy Vancomycin Note Date of Service May 25, 2024 Patient's 1965 59 year old, male Indication: Skin and Soft Tissue Infection Day of Therapy: 3 Current vancomycin regimen: intermittent dosing Current vancomycin monitoring method: Renal Replacement Therapy Current vancomycin therapeutic monitoring goal: 10-15 mg/L Current estimated CrCl = Estimated Creatinine Clearance: 12.9 mL/min (A) (based on SCr of 5.89 mg/dL (H)). Creatinine for last 3 days 05/23/2024: 1:50 PM Creatinine 4.52 mg/dL 05/24/2024: 6:09 AM Creatinine 5.89 mg/dL Recent Vancomycin Levels (past 3 days) 05/25/2024: 2:04 PM Vancomycin 11.9 ug/mL Vancomycin IV Administrations (past 72 hours) vancomycin (VANCOCIN) 1,750 mg in 0.9% NaCl 500 mL intermittent infusion (mg) 1,750 mg New Bag 05/23/24 1434 Nephrotoxins and other renal medications (From now, onward) Start Dose/Rate Route Frequency Ordered Stop 05/24/[address] [facility] - receiving intermittent dosing 1 each Intravenous SEE ADMIN INSTRUCTIONS 05/24/2481705/23/24 2200 piperacillin-tazobactam (ZOSYN) 2.25 g vial to [...] mL 500 mL Intravenous ONCE 05/23/24 1417 Interpretation of levels and current regimen: Vancomycin level is reflective of therapeutic level Has serum creatinine changed greater than 50% in last 72 hours: No Urine output: unable to determine Renal Function: ESRD on Dialysis Plan: The pre-dialysis vancomycin level was never drawn this AM. A post-dialysis level was ordered which resulted at 11.9. Will give vancomycin 1000 mg (11.9 mg/kg) post-HD. Vancomycin monitoring method: Renal Replacement Therapy Vancomycin therapeutic monitoring goal: 10-15 mg/L Pharmacy will check vancomycin levels as appropriate before next dialysis run (MWF). Serum creatinine levels will be ordered daily for the first week of therapy and at least twice weekly for subsequent weeks. CHUCHO ZULUAGA RPH * Plan of Care - Marce Leon RN - 05/25/2024 6:18 AM CDT To Do: End of Shift Summary For vital signs and complete assessments, please see documentation flowsheets. Pertinent assessments: Pt alert to self. Denies nausea, SOB and pain. Dressing to scrotum intact. Major Shift Events Weaned to RA Treatment Plan: Cleocin, Zosyn, wound care and HD Bedside Nurse: Marce Leon RN Problem: Adult Inpatient Plan of Care Goal: Plan of Care Review Description: The Plan of Care Review/Shift note should be completed every shift. The Outcome Evaluation is a brief statement about your assessment that the patient is improving, declining, or no change. This information will be displayed automatically on your shift note. Outcome: Not Progressing Flowsheets (Taken 05/25/2024 0617) Outcome Evaluation: dressing intact Plan of Care Reviewed With: patient Overall [...] Manage Fall Risk Recent Flowsheet Documentation Taken 05/24/20242119 by Marce Leon RN Safety Promotion/Fall Prevention: activity supervised clutter free environment maintained increase visualization of patient nonskid shoes/slippers when out of bed safety round/check completed room near nurse's station Intervention: Prevent Skin Injury Recent Flowsheet Documentation Taken 05/24/20242118 by Marce Leon RN Body Position: weight shifting Intervention: Prevent and Manage VTE (Venous Thromboembolism) Risk Recent Flowsheet Documentation Taken 05/24/20242119 by Marce Leon RN VTE Prevention/Management: SCDs on (sequential compression devices) Goal: Optimal Comfort and Wellbeing Outcome: Not Progressing Goal: Readiness for Transition of Care Outcome: Not Progressing Problem: Infection Goal: Absence of Infection Signs and Symptoms Outcome: Not Progressing Problem: Comorbidity Management Goal: Blood Glucose Levels Within Targeted Range Outcome: Not Progressing Intervention: Monitor and Manage Glycemia Recent Flowsheet Documentation Taken 05/24/20242119 by Marce Leon RN Glycemic Management: blood glucose monitored Medication Review/Management: medications reviewed Problem: Skin Injury Risk Increased Goal: Skin Health and Integrity Outcome: Not Progressing Intervention: Plan: Nurse Driven Intervention: Moisture Management Recent Flowsheet Documentation Taken 05/24/20242119 by Marce Leon RN Moisture Interventions: No brief in bed Perineal cleanser Taken 05/24/20241999 by Marce Leon RN Moisture Interventions: No brief in bed Perineal cleanser Bathing/Skin Care: other (see comments) Intervention: Optimize Skin Protection Recent Flowsheet Documentation Taken 05/24/20242118 by Marce Leon RN Activity Management: bedrest Head of Bed (HOB) Positioning: HOB at 20-30 degrees Goal Outcome Evaluation: Plan of Care Reviewed With: patient Overall Patient Progress: no changeOverall Patient Progress: no change Outcome Evaluation: dressing intact * Plan of Care - Jessica Paz [...] shift note. Outcome: Progressing Flowsheets (Taken 05/24/2024 4958) Outcome Evaluation: Scrotal dressing changed twice. Did [...] Fall Risk Recent Flowsheet Documentation Taken 05/24/2024 8536 by Jessica Paz RN Safety Promotion/Fall Prevention: [...] Prevent Skin Injury Recent Flowsheet Documentation Taken 05/23/20242299 by Jazmín Alcantar RN Body Position: weight shifting Device Skin Pressure Protection: absorbent pad utilized/changed positioning supports utilized Intervention: Prevent Infection Recent Flowsheet Documentation Taken 05/23/20242299 by Jazmín Alcantar RN Infection Prevention: rest/sleep [...] Optimize Skin Protection Recent Flowsheet Documentation Taken 05/23/20242299 by Jazmín Alcantar RN Activity Management: bedrest [...] member and Thelma (aunt) via phone and [phone] Pertinent Information: outside meds--none added Changes made to THERAPEUTIC SPECIALIST medication list: Added: none Deleted: norvasc, lipitor, Changed: protonix Allergies reviewed with patient and updates made in EHR: yes Medication History Completed By: Graham Joseph RPH 05/23/2024 9:51 PM THERAPEUTIC SPECIALIST Med List Medication Sig Last Dose B Zpxjbqk-S-Ajisb Acid (WESCAPS PO) Take 1 capsule by [...] * Pharmacy-Vancomycin Dosing Service - John Rosado RP - 05/23/2024 9:03 PM CDT Pharmacy Vancomycin [...] over 1 Hours Intravenous EVERY 24 HOURS 05/23/24 21005/23/24 2200 piperacillin-tazobactam (ZOSYN) 2.25 g vial to [...] OR PREOPERATIVE DIAGNOSIS: (R79.1) 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 ESTIMATED BLOOD LOSS: 10 mL. DRAINS AND TUBES: NONE COMPLICATIONS: None. DISPOSITION: PACU. SPECIMENS OBTAINED: ID Type Source Tests Collected by Time Destination A : SCROTAL TISSUE Tissue Scrotum ANAEROBIC BACTERIAL CULTURE ROUTINE, GRAM STAIN, AEROBIC BACTERIAL CULTURE ROUTINE Lizandro Barron MD 05/23/2024 6:42 PM SIGNIFICANT FINDINGS: Evidence of the scrotal abscess and Jose's gangrene with significant prior spontaneous drainage and [...] foul-smelling drainage with CT scan consistent with Jose's gangrene. He presented with a supratherapeutic INR [...] and procedure to be performed. A 16 [place] coud?? catheter was placed through the urethra, [...] in stable condition. Lizandro Barron MD Urology [facility] documented in this encounter Plan of Treatment Upcoming Encounters Date Type Department Care Team (Late st Contact Info) Description 07/05/2024 1:15 PM CDT Office Visit [address] [address] Lizandro Barron MD [address] [id number] Scheduled Referrals Name Type Priority Associated Diagnoses Orde r Schedule Home Care Referral Referral Routine: Next available opening Jose's gangrene of scrotum (H28) Ordered: 05/30/2024 documented as of this encounter Procedures Procedure Name Priority Date/Time Associated Diagnosis Comments GLUCOSE BY METER Routine 05/30/2024 1:40 PM CDT GLUCOSE BY METER Routine 05/30/2024 7:13 AM CDT INR Routine 05/30/2024 6:54 AM CDT BASIC METABOLIC PANEL Routine 05/30/2024 6:54 AM CDT CBC WITH PLATELETS Routine 05/30/2024 6: 54 AM CDT GLUCOSE BY METER Routine 05/30/2024 2:18 AM CDT GLUCOSE BY METER Routine 05/29/2024 9:28 PM CDT GLUCOSE BY METER Routine 05/29/2024 5:54 PM CDT GLUCOSE BY METER Routine 05/29/2024 1:41 PM CDT GLUCOSE BY METER Routine 05/29/2024 7:54 AM CDT INR Routine 05/29/2024 6:22 AM CDT BASIC METABOLIC PANEL Routine 05/29/2024 6:22 AM CDT CBC WITH PLATELETS Routine 05/29/2024 6: 22 AM CDT GLUCOSE BY METER Routine 05/29/2024 2:26 AM CDT GLUCOSE BY METER Routine 05/28/2024 9:50 PM CDT GLUCOSE BY METER Routine 05/28/2024 5:08 PM CDT GLUCOSE BY METER Routine 05/28/2024 1:58 PM CDT GLUCOSE BY METER Routine 05/28/2024 7:48 AM CDT EXTRA GREEN TOP TUBE (LAB USE ONLY) Routine 05/28/2024 6:07 AM CDT EXTRA PURPLE TOP EDTA (LAB USE ONLY) Routine 05/28/2024 6:07 AM CDT INR Routine 05/28/2024 6:07 AM CDT HEMOGLOBIN Routine 05/28/2024 6:07 AM CDT BASIC METABOLIC PANEL Routine 05/28/2024 6:07 AM CDT GLUCOSE BY [...] 05/26/2024 8:22 AM CDT CBC WITH PLATELETS AND DIFFERENTIAL Routine 05/26/2024 5:47 AM CDT CBC WITH PLATELETS & DIFFERENTIAL Routine 05/26/2024 5:47 AM CDT BASIC METABOLIC PANEL Routine 05/26/2024 5:47 AM CDT GLUCOSE BY METER Routine 05/26/2024 1:57 AM CDT GLUCOSE BY METER Routine 05/25/2024 9:32 PM CDT GLUCOSE BY METER Routine 05/25/2024 7:06 PM CDT GLUCOSE BY METER Routine 05/25/2024 5:29 PM CDT EXTRA GREEN TOP TUBE (LAB USE ONLY) Routine 05/25/2024 2:04 PM CDT EXTRA PURPLE TOP EDTA (LAB USE ONLY) Routine 05/25/2024 2:04 PM CDT VANCOMYCIN LEVEL Timed 05/25/2024 2:04 PM CDT GLUCOSE BY METER Routine 05/25/2024 2:01 PM CDT HEPATITIS B SURFACE ANTIBODY Routine 05/25/2024 9:25 AM CDT HEPATITIS B SURFACE ANTIGEN Routine 05/25/2024 9:25 AM CDT GLUCOSE BY [...] SCROTUM 05/23/2024 6:06 PM CDT Supratherapeutic INR Jose's gangrene of scrotum (H28) GLUCOSE BY METER [...] this encounter Results * Glucose by meter (05/30/2024 1:40 PM CDT) GLUCOSE BY METER POCT 84 70 - 99 mg/dL 05/30/2024 1:46 PM CDT LABORATORY POC Blood, Capillary BLOOD SPECIMEN / Unknown 05/30/2024 1:40 PM CDT 05/30/2024 1:46 PM CDT Antonino HERNANDEZ POCT Performing Organization Address City/[facility]/ZIP Co de Phone Number LABORATORY [facility] [address] Lab (1st floor, no room number) [place] [address] * Glucose by meter (05/30/2024 7:13 AM CDT) GLUCOSE BY METER POCT 82 70 - 99 mg/dL 05/30/2024 7:19 AM CDT LABORATORY POC Blood, Capillary BLOOD SPECIMEN / Unknown 05/30/2024 7:13 AM CDT 05/30/2024 7:19 AM CDT Antonino DEAN - BEAKER POCT LABORATORY POC [facility] [address] Lab (1st floor, no room number) [place] [address] * (ABNORMAL) INR (05/30/2024 6:54 AM CDT) INR 2.26(H) 0.85 - 1.15 05/30/2024 7:20 AM CDT LABORATORY Blood STRUCTURE OF RIGHT HAND / Unknown Venipuncture / Unknown 05/30/2024 6:54 AM CDT 05/30/2024 7:06 AM CDT Antonino Cheek MD LAB - BLOOD ORDERABL ES Performing Organization Address [facility]/ZIP Co de Phone Number LABORATORY [facility] [address] Lab (1st floor, no room number) [place] [address] * (ABNORMAL) Basic metabolic panel (05/30/2024 6:54 AM CDT) Sodium 133(L) 135 - 145 mmol/L 05/30/2024 [...] >60 mL/min/1.7 3m2 05/30/2024 7:29 AM CDT LABORATORY Comment:eGFR calculated usin 2020 CKD-EPI equation. Calcium 8.7(L) 8.8 - 10.4 [...] LAB - BLOOD ORDERABL ES RH LABORATORY [facility] [address] Lab (1st floor, no room number) [place] [address], [place] * (ABNORMAL) CBC with platelets (05/30/2024 6:54 AM CDT) WBC Count 5.7 4.0 - 11.0 10e3/uL [...] - 450 10e3/uL 05/30/2024 7:11 AM CDT LABORATORY Blood STRUCTURE OF RIGHT HAND / Unknown Venipuncture / Unknown 05/30/2024 6:54 AM CDT 05/30/2024 7:06 AM CDT Charles Mcneal MD LAB - BLOOD ORDERABL ES LABORATORY [facility] [address] Lab (1st floor, no room number) [place] [address], [place] * (ABNORMAL) Glucose by meter (05/30/2024 2:18 AM CDT) GLUCOSE BY METER POCT 138(H) 70 - 99 mg/dL 05/30/2024 2:24 AM CDT LABORATORY POC Blood, Capillary BLOOD SPECIMEN / Unknown 05/30/2024 2:18 AM CDT 05/30/2024 2:24 AM CDT Antonino DEAN - BEAKER POCT LABORATORY [facility] [address] Lab (1st floor, no room number) [place] [address], [place] * (ABNORMAL) Glucose by meter (05/29/2024 9:28 PM CDT) GLUCOSE BY METER POCT 160(H) 70 - 99 mg/dL 05/29/2024 9:35 PM CDT LABORATORY POC Blood, Capillary BLOOD SPECIMEN / Unknown 05/29/2024 9:28 PM CDT 05/29/2024 9:35 PM CDT Antonino DEAN - BEAKER POCT LABORATORY [facility] [address] Lab (1st floor, no room number) [place] [address], [place] * (ABNORMAL) Glucose by meter (05/29/2024 5:54 PM CDT) GLUCOSE BY METER POCT 159(H) 70 - 99 mg/dL 05/29/2024 6:01 PM CDT RH LABORATORY POC Blood, Capillary BLOOD SPECIMEN / Unknown 05/29/2024 5:54 PM CDT 05/29/2024 6:01 PM CDT Antonino Cheek MD LAB - BEAKER POCT LABORATORY [facility] [address] Lab (1st floor, no room number) [place] [phone], [place] * (ABNORMAL) Glucose by meter (05/29/2024 1:41 PM CDT) GLUCOSE BY METER POCT 158(H) 70 - 99 mg/dL 05/29/2024 1:48 PM CDT RH LABORATORY POC Blood, Capillary BLOOD SPECIMEN / Unknown 05/29/2024 1:41 PM CDT 05/29/2024 1:48 PM CDT Antonino Cheek MD LAB - BEAKER POCT Performing Organization Address City/[facility]/ZIP Co de Phone Number LABORATORY [facility] [address] Lab (1st floor, no room number) [place] [phone], [place] * Glucose by meter (05/29/2024 7:54 AM CDT) GLUCOSE BY METER POCT 90 70 - 99 mg/dL 05/29/2024 8:01 AM CDT RH LABORATORY POC Blood, Capillary BLOOD SPECIMEN / Unknown 05/29/2024 7:54 AM CDT 05/29/2024 8:01 AM CDT Antonino Cheek MD LAB - BEAKER POCT LABORATORY [facility] [address] Lab (1st floor, no room number) [place] [phone] [place] [address] * (ABNORMAL) INR (05/29/2024 6:22 AM CDT) INR 1.92(H) 0.85 - 1.15 05/29/2024 6:52 AM CDT LABORATORY Blood STRUCTURE OF RIGHT HAND / Unknown Venipuncture / Unknown 05/29/2024 6:22 AM CDT 05/29/2024 6:40 AM CDT Antonino Cheek MD LAB - BLOOD ORDERABL ES LABORATORY [facility] [address] Lab (1st floor, no room number) [address] * (ABNORMAL) Basic metabolic panel (05/29/2024 6:22 AM CDT) Pathologist [facility] Sodium 133(L) 135 - 145 mmol/L 05/29/2024 7:01 AM CDT LABORATORY Potassium 4.0 3.4 - 5.3 mmol/L 05/29/2024 7:01 AM T LABORATORY Chloride 95(L) 98 - 107 mmol/L 05/29/2024 7:01 AM T LABORATORY Carbon Dioxide (CO2) 25 22 - 29 mmol/L 05/29/2024 7:01 AM CDT LABORATORY Anion Gap 13 7 - 15 mmol/L 05/29/2024 7:01 AM T LABORATORY Urea Nitrogen 30.7(H) 8.0 - 23.0 mg/dL 05/29/2024 7:01 AM CDT LABORATORY Creatinine 6.71(H) 0.67 - 1.17 mg/dL 05/29/2024 7:01 AM CDT LABORATORY GFR Estimate 9(L) >60 mL/min/1.7 3m2 05/29/2024 7:01 AM T LABORATORY Comment:eGFR calculated usin 2020 CKD-EPI equation. Calcium 8.7(L) 8.8 - 10.4 mg/dL 05/29/2024 7:01 AM CDT LABORATORY Comment:Reference intervals for this test were updated on 04/24/2024 to reflect our healthy population more accurately. There may be differences in the flagging of prior results with similar values performed with this method. Those prior results can be interpreted in the context of the updated reference intervals. Glucose 87 70 - 99 mg/dL 05/29/2024 7:01 AM CDT RH LABORATORY Blood STRUCTURE OF RIGHT HAND / Unknown Venipuncture / Unknown 05/29/2024 6:22 AM CDT 05/29/2024 6:40 AM CDT Charles Mcneal MD LAB - BLOOD ORDERABL ES RH LABORATORY [facility] Lab [address] [facility] Lab (1st floor, no room number) [place] [address] * (ABNORMAL) CBC with platelets (05/29/2024 6:22 AM CDT) WBC Count 7.2 4.0 - 11.0 10e3/uL 05/29/2024 6:50 AM CDT RH LABORATORY RBC Count 2.69(L) 4.40 - 5.90 10e6/uL 05/29/2024 6:50 AM CDT RH LABORATORY Hemoglobin 7.5(L) 13.3 - 17.7 g/dL 05/29/2024 6:50 AM CDT RH LABORATORY Hematocrit 25.7(L) 40.0 - 53.0 % 05/29/2024 6:50 AM CDT RH LABORATORY MCV 96 78 - 100 fL 05/29/2024 6:50 AM CDT RH LABORATORY MCH 27.9 26.5 - 33.0 pg 05/29/2024 6:50 AM CDT RH LABORATORY MCHC 29.2(L) 31.5 - 36.5 g/dL 05/29/2024 6:50 AM CDT RH LABORATORY RDW 20.8(H) 10.0 - 15.0 % 05/29/2024 6:50 AM CDT RH LABORATORY Platelet Count 183 150 - 450 10e3/uL 05/29/2024 6:50 AM CDT RH LABORATORY Blood STRUCTURE OF RIGHT HAND / Unknown Venipuncture / Unknown 05/29/2024 6:22 AM CDT 05/29/2024 6:40 AM CDT Charles Mcneal MD LAB - BLOOD ORDERABL ES [facility] Lab [address] Lab (1st floor, no room number) [place] [id number], [place] * (ABNORMAL) Glucose by meter (05/29/2024 2:26 AM CDT) GLUCOSE BY METER POCT 103(H) 70 - 99 mg/dL 05/29/2024 2:33 AM CDT LABORATORY POC Blood, Capillary BLOOD SPECIMEN / Unknown 05/29/2024 2:26 AM CDT 05/29/2024 2:33 AM CDT Antonino DEAN - BEAKER POCT Performing Organization Address [facility]/ZIP Co de Phone Number [facility] Acute Care Lab [address] Lab (1st floor, no room number) [place] [phone], [place] * (ABNORMAL) Glucose by meter (05/28/2024 9:50 PM CDT) GLUCOSE BY METER POCT 102(H) 70 - 99 mg/dL 05/28/2024 9:56 PM CDT LABORATORY POC Blood, Capillary BLOOD SPECIMEN / Unknown 05/28/2024 9:50 PM CDT 05/28/2024 9:56 PM CDT Antonino DEAN - BEAKER POCT Performing Organization Address City/[facility]/ZIP Co de Phone Number LABORATORY [facility] Lab [address] Lab (1st floor, no room number) [place] [phone], [place] * (ABNORMAL) Glucose by meter (05/28/2024 5:08 PM CDT) GLUCOSE BY METER POCT 254(H) 70 - 99 mg/dL 05/28/2024 5:16 PM CDT RH LABORATORY POC Blood, Capillary BLOOD SPECIMEN / Unknown 05/28/2024 5:08 PM CDT 05/28/2024 5:16 PM CDT Antonino Cheek MD LAB - BEAKER POCT LABORATORY [facility] Lab [address] Lab (1st floor, no room number) [place] [phone] * Glucose by meter (05/28/2024 1:58 PM CDT) GLUCOSE BY METER POCT 91 70 - 99 mg/dL 05/28/2024 2:05 PM CDT LABORATORY POC Blood, Capillary BLOOD SPECIMEN / Unknown 05/28/2024 1:58 PM CDT 05/28/2024 2:05 PM CDT Antonino DEAN - BEAKER POCT LABORATORY [facility] Lab [address] Lab (1st floor, no room number) [place] [phone] [place] [address] * (ABNORMAL) Glucose by meter (05/28/2024 7:48 AM CDT) GLUCOSE BY METER POCT 128(H) 70 - 99 mg/dL 05/28/2024 7:54 AM CDT LABORATORY POC Blood, Capillary BLOOD SPECIMEN / Unknown 05/28/2024 7:48 AM CDT 05/28/2024 7:54 AM CDT Antonino Cheek MD LAB - BEAKER POCT LABORATORY [facility] Lab [address] Lab (1st floor, no room number) [place] [address] * Extra Purple Top EDTA (LAB USE ONLY) (05/28/2024 6:07 AM CDT) Hold Specimen JI 05/28/2024 7:32 AM CDT RH LABORATORY Blood STRUCTURE OF LEFT HAND / Unknown Venipuncture / Unknown 05/28/2024 6:07 AM CDT 05/28/2024 6:17 AM CDT Antonino Cheek MD LAB - BLOOD ORDERABL ES [facility] Lab [address] Lab (1st floor, no room number) [address] [place] [address] * Extra Green Top Tube (LAB USE ONLY) (05/28/2024 6:07 AM CDT) Hold Specimen [facility] 05/28/2024 7:32 AM CDT RH LABORATORY Blood STRUCTURE OF LEFT HAND / Unknown Venipuncture / Unknown 05/28/2024 6:07 AM CDT 05/28/2024 6:17 AM CDT Antonino Cheek MD LAB - BLOOD ORDERABL ES Performing Organization Address [facility] Co de Phone Number [facility] Lab [address] Lab (1st floor, no room number) [place] [phone] [place] [address] * (ABNORMAL) INR (05/28/2024 6:07 AM CDT) INR 1.87(H) 0.85 - 1.15 05/28/2024 6:27 AM CDT RH LABORATORY Blood STRUCTURE OF LEFT HAND / Unknown Venipuncture / Unknown 05/28/2024 6:07 AM CDT 05/28/2024 6:17 AM CDT Antonino Cheek MD LAB - BLOOD ORDERABL ES Performing Organization Address City/[facility]/ZIP Co de Phone Number [facility] Lab [address] Lab (1st floor, no room number) [place] [phone] * (ABNORMAL) Hemoglobin (05/28/2024 6:07 AM CDT) Hemoglobin 7.7(L) 13.3 - 17.7 g/dL 05/28/2024 9:02 AM CDT LABORATORY Blood STRUCTURE OF LEFT HAND / Unknown Venipuncture / Unknown 05/28/2024 6:07 AM CDT 05/28/2024 6:17 AM CDT Dileep Anders MD LAB - BLOOD ORD ERABLES LABORATORY [facility] Lab [address] Lab (1st floor, no room number) [place] [phone] * (ABNORMAL) Basic metabolic panel (05/28/2024 6:07 AM CDT) Sodium 136 135 - 145 mmol/L 05/28/2024 9:03 AM CDT LABORATORY Potassium 4.7 3.4 - 5.3 mmol/L 05/28/2024 9:03 AM CDT LABORATORY Chloride 98 98 - 107 mmol/L 05/28/2024 9:03 AM CDT LABORATORY Carbon Dioxide (CO2) 22 22 - 29 mmol/L 05/28/2024 9:03 AM CDT LABORATORY Anion Gap 16(H) 7 - 15 mmol/L 05/28/2024 9:03 AM CDT LABORATORY Urea Nitrogen 50.8(H) 8.0 - 23.0 mg/dL 05/28/2024 9:03 AM CDT LABORATORY Creatinine 9.64(H) 0.67 - 1.17 mg/dL 05/28/2024 9:03 AM CDT LABORATORY GFR Estimate 6(L) >60 mL/min/1.7 3m2 05/28/2024 9:03 AM CDT LABORATORY Comment:eGFR calculated usin 2020 CKD-EPI equation. Calcium 8.7(L) 8.8 - 10.4 mg/dL 05/28/2024 9:03 AM CDT LABORATORY Comment:Reference intervals for this test were updated on 04/24/2024 to reflect our healthy population more accurately. There may be differences in the flagging of prior results with similar values performed with this method. Those prior results can be interpreted in the context of the updated reference intervals. Glucose 77 70 - 99 mg/dL 05/28/2024 9:03 AM CDT LABORATORY Blood STRUCTURE OF LEFT HAND / Unknown Venipuncture / Unknown 05/28/2024 6:07 AM CDT 05/28/2024 6:17 AM CDT Dileep Anders MD LAB - BLOOD ORD ERABLES Performing Organization Address City/[facility]/ZIP Co de Phone Number LABORATORY [facility] Lab [address] [facility] Lab (1st floor, no room number) [address] [place] [address] * (ABNORMAL) Glucose by meter (05/28/2024 2:19 AM CDT) GLUCOSE BY METER POCT 102(H) 70 - 99 mg/dL 05/28/2024 2:26 AM CDT LABORATORY POC Blood, Capillary BLOOD SPECIMEN / Unknown 05/28/2024 2:19 AM CDT 05/28/2024 2:26 AM CDT Antonino DEAN - BEAKER POCT Performing Organization Address [facility]/ZIP Co de Phone Number LABORATORY [facility] [address] Lab (1st floor, no room number) [place] [phone] [place] [address] * (ABNORMAL) Glucose by meter (05/27/2024 9:05 PM CDT) GLUCOSE BY METER POCT 148(H) 70 - 99 mg/dL 05/27/2024 9:13 PM CDT LABORATORY POC Blood, Capillary BLOOD SPECIMEN / Unknown 05/27/2024 9:05 PM CDT 05/27/2024 9:13 PM CDT Antonino DEAN - BEAKER POCT LABORATORY [facility] Lab [address] Lab (1st floor, no room number) [place] [phone] [place] [address] * (ABNORMAL) Glucose by meter (05/27/2024 5:11 PM CDT) GLUCOSE BY METER POCT 148(H) 70 - 99 mg/dL 05/27/2024 5:20 PM CDT RH LABORATORY POC Blood, Capillary BLOOD SPECIMEN / Unknown 05/27/2024 5:11 PM CDT 05/27/2024 5:20 PM CDT Antonino DEAN - EVERXIANG POCT Performing Organization Address [facility]/ZIP Co de Phone Number LABORATORY [facility] [address] Lab (1st floor, no room number) [place] [phone] [place] [address] * (ABNORMAL) Glucose by meter (05/27/2024 11:42 AM CDT) GLUCOSE BY METER POCT 149(H) 70 - 99 mg/dL 05/27/2024 11:49 AM CDT LABORATORY POC Blood, Capillary BLOOD SPECIMEN / Unknown 05/27/2024 11:42 AM CDT 05/27/2024 11:49 AM CDT Antonino DEAN - BEAKER POCT Performing Organization Address [facility]/ZIP Co de Phone Number LABORATORY [facility] Lab [address] Lab (1st floor, no room number) [place] [phone] [place] [address] * (ABNORMAL) Glucose by meter (05/27/2024 7:44 AM CDT) GLUCOSE BY METER POCT 108(H) 70 - 99 mg/dL 05/27/2024 7:51 AM CDT RH LABORATORY POC Blood, Capillary BLOOD SPECIMEN / Unknown 05/27/2024 7:44 AM CDT 05/27/2024 7:51 AM CDT Antonino Cheek MD LAB - BEAKER POCT Performing Organization Address [facility]/ZIP Co de Phone Number LABORATORY [facility] Lab [address] Lab (1st floor, no room number) [place] [address] * (ABNORMAL) INR (05/27/2024 7:03 AM CDT) INR 1.81(H) 0.85 - 1.15 05/27/2024 7:17 AM CDT LABORATORY Blood STRUCTURE OF RIGHT HAND / Unknown Venipuncture / Unknown 05/27/2024 7:03 AM CDT 05/27/2024 7:07 AM CDT Antonino Cheek MD LAB - BLOOD ORDERABL ES Performing Organization Address [facility]/ZIP Co de Phone Number [facility] Lab [address] Lab (1st floor, no room number) [place] [address], [place] * (ABNORMAL) Glucose by meter (05/27/2024 2:03 AM CDT) GLUCOSE BY METER POCT 157(H) 70 - 99 mg/dL 05/27/2024 2:10 AM CDT LABORATORY POC Blood, Capillary BLOOD SPECIMEN / Unknown 05/27/2024 2:03 AM CDT 05/27/2024 2:10 AM CDT Antonino DEAN - BEAKER POCT Performing Organization Address [facility]/ZIP Co de Phone Number LABORATORY [facility] Lab [address] Lab (1st floor, no room number) [place] [address], [place] * (ABNORMAL) Glucose by meter (05/26/2024 9:29 PM CDT) GLUCOSE BY METER POCT 155(H) 70 - 99 mg/dL 05/26/2024 9:37 PM CDT RH LABORATORY POC Blood, Capillary BLOOD SPECIMEN / Unknown 05/26/2024 9:29 PM CDT 05/26/2024 9:37 PM CDT Antonino Cheek MD LAB - BEAKER POCT LABORATORY [facility] Lab [address] Lab (1st floor, no room number) [place] [phone], [place] * (ABNORMAL) Glucose by meter (05/26/2024 4:10 PM CDT) GLUCOSE BY METER POCT 174(H) 70 - 99 mg/dL 05/26/2024 4:19 PM CDT RH LABORATORY POC Blood, Capillary BLOOD SPECIMEN / Unknown 05/26/2024 4:10 PM CDT 05/26/2024 4:19 PM CDT Antonino Cheek MD LAB - BEAKER POCT Performing Organization Address [facility]/ZIP Co de Phone Number LABORATORY [facility] Lab [address] Lab (1st floor, no room number) [place] [address], [place] * (ABNORMAL) INR (05/26/2024 4:09 PM CDT) INR 1.67(H) 0.85 - 1.15 05/26/2024 4:28 PM CDT RH LABORATORY Blood STRUCTURE OF LEFT UPPER LIMB / Unknown Venipuncture / Unknown 05/26/2024 4:09 PM CDT 05/26/2024 4:15 PM CDT Antonino Cheek MD LAB - BLOOD ORDERABL ES [facility] Lab [address] Lab (1st floor, no room number) [place] [phone], [place] * (ABNORMAL) Glucose by meter (05/26/2024 11:37 AM CDT) GLUCOSE BY METER POCT 197(H) 70 - 99 mg/dL 05/26/2024 11:44 AM CDT RH LABORATORY POC Blood, Capillary BLOOD SPECIMEN / Unknown 05/26/2024 11:37 AM CDT 05/26/2024 11:44 AM CDT Antonino DEAN - BEAKER POCT Performing Organization Address City/[facility]/ZIP Co de Phone Number LABORATORY [facility] [address] Lab (1st floor, no room number) [place] [phone] [place] [address] * Glucose by meter (05/26/2024 8:22 AM CDT) GLUCOSE BY METER POCT 85 70 - 99 mg/dL 05/26/2024 8:29 AM CDT LABORATORY POC Blood, Capillary BLOOD SPECIMEN / Unknown 05/26/2024 8:22 AM CDT 05/26/2024 8:29 AM CDT Antonino DEAN - EVERAKER POCT Performing Organization Address [facility] Co de Phone Number LABORATORY [facility] Lab [address] Lab (1st floor, no room number) [address] * (ABNORMAL) CBC with platelets and differential (05/26/2024 5:47 AM CDT) WBC Count 8.2 4.0 - [...] MD LAB - BLOOD ORDERABL ES LABORATORY [facility] Lab [address] Lab (1st floor, no room number) [place] [address], [place] * (ABNORMAL) Basic metabolic panel (05/26/2024 5:47 AM CDT) Sodium 135 135 - 145 mmol/L 05/26/2024 6:33 AM CDT LABORATORY Potassium 4.4 3.4 - 5.3 mmol/L 05/26/2024 6:33 AM CDT LABORATORY Chloride 97(L) 98 - 107 mmol/L 05/26/2024 6:33 AM CDT LABORATORY Carbon Dioxide (CO2) 28 22 - 29 mmol/L 05/26/2024 6:33 AM CDT LABORATORY Anion Gap 10 7 - 15 mmol/L 05/26/2024 6:33 AM CDT LABORATORY Urea Nitrogen 30.0(H) 8.0 - 23.0 mg/dL 05/26/2024 6:33 AM CDT LABORATORY Creatinine 5.84(H) 0.67 - 1.17 mg/dL 05/26/2024 6:33 AM CDT LABORATORY GFR Estimate 10(L) >60 mL/min/1.7 3m2 05/26/2024 6:33 AM CDT LABORATORY Comment:eGFR calculated usin 2020 CKD-EPI equation. Calcium 8.7(L) 8.8 - 10.4 mg/dL 05/26/2024 6:33 AM CDT RH LABORATORY Comment:Reference intervals for this test were updated on 04/24/2024 to reflect our healthy population more accurately. There may be differences in the flagging of prior results with similar values performed with this method. Those prior results can be interpreted in the context of the updated reference intervals. Glucose 88 70 - 99 mg/dL 05/26/2024 6:33 AM CDT LABORATORY Blood STRUCTURE OF RIGHT UPPER LIMB / Unknown Venipuncture / Unknown 05/26/2024 5:47 AM CDT 05/26/2024 6:15 AM CDT Antonino Cheek MD LAB - BLOOD ORDERABL ES [facility] Lab [address] Lab (1st floor, no room number) [place] [address], [place] * (ABNORMAL) Glucose by meter (05/26/2024 1:57 AM CDT) GLUCOSE BY METER POCT 123(H) 70 - 99 mg/dL 05/26/2024 2:04 AM CDT LABORATORY POC Blood, Capillary BLOOD SPECIMEN / Unknown 05/26/2024 1:57 AM CDT 05/26/2024 2:04 AM CDT Antonino Cheek MD LAB - BEAKER POCT Performing Organization Address [facility]/ZIP Co de Phone Number LABORATORY [facility] Lab [address] Lab (1st floor, no room number) [place] [address], [place] * (ABNORMAL) Glucose by meter (05/25/2024 9:32 PM CDT) GLUCOSE BY METER POCT 155(H) 70 - 99 mg/dL 05/25/2024 9:39 PM CDT LABORATORY POC Blood, Capillary BLOOD SPECIMEN / Unknown 05/25/2024 9:32 PM CDT 05/25/2024 9:39 PM CDT Antonino Cheek MD LAB - BEAKER POCT LABORATORY [facility] [address] Lab (1st floor, no room number) [place] [address], [place] * (ABNORMAL) Glucose by meter (05/25/2024 7:06 PM CDT) GLUCOSE BY METER POCT 183(H) 70 - 99 mg/dL 05/25/2024 7:14 PM CDT RH LABORATORY POC Blood, Capillary BLOOD SPECIMEN / Unknown 05/25/2024 7:06 PM CDT 05/25/2024 7:14 PM CDT Antonino Cheek MD LAB - BEAKER POCT LABORATORY [facility] Lab [address] Lab (1st floor, no room number) [place] [phone] [place] [address] * (ABNORMAL) Glucose by meter (05/25/2024 5:29 PM CDT) GLUCOSE BY METER POCT 142(H) 70 - 99 mg/dL 05/25/2024 5:36 PM CDT LABORATORY POC Blood, Capillary BLOOD SPECIMEN / Unknown 05/25/2024 5:29 PM CDT 05/25/2024 5:36 PM CDT Antonino Cheek MD LAB - BEAKER POCT Performing Organization Address City/[facility]/ZIP Co de Phone Number LABORATORY [facility] Lab [address] Lab (1st floor, no room number) [place] [phone] [place] [address] * Vancomycin level (05/25/2024 2:04 PM CDT) Vancomycin 11.9 ug/mL 05/25/2024 3:28 PM CDT RH LABORATORY Comment: Traditional Dosing Therapeutic Range: Trough 10-15 ug/mL Peak 20-40 ug/mL Critical: Greater than 25.0 ug/mL Blood STRUCTURE OF RIGHT UPPER LIMB / Unknown Venipuncture / Unknown 05/25/2024 2:04 PM CDT 05/25/2024 2:07 PM CDT Antonino Cheek MD LAB - BLOOD ORDERABL ES LABORATORY [facility] [address] Lab (1st floor, no room number) [place] [phone] * Extra Purple Top EDTA (LAB USE ONLY) (05/25/2024 2:04 PM CDT) Hold Specimen [facility] 05/25/2024 3:17 PM CDT RH LABORATORY Blood STRUCTURE OF RIGHT UPPER LIMB / Unknown Venipuncture / Unknown 05/25/2024 2:04 PM CDT 05/25/2024 2:07 PM CDT Antonino Cheek MD LAB - BLOOD ORDERABL ES LABORATORY [facility] [address] Lab (1st floor, no room number) [place] [phone] [place] [address] * Extra Green Top Tube (LAB USE ONLY) (05/25/2024 2:04 PM CDT) Hold Specimen [facility] 05/25/2024 3:17 PM CDT LABORATORY Blood STRUCTURE OF RIGHT UPPER LIMB / Unknown Venipuncture / Unknown 05/25/2024 2:04 PM CDT 05/25/2024 2:07 PM CDT Antonino Cheek MD LAB - BLOOD ORDERABL ES Performing Organization Address [facility]/ZIP Co de Phone Number [facility] Lab [address] Lab (1st floor, no room number) [place] [phone] [place] [address] * Glucose by meter (05/25/2024 2:01 PM CDT) GLUCOSE BY METER POCT 70 70 - 99 mg/dL 05/25/2024 2:08 PM CDT LABORATORY POC Blood, Capillary BLOOD SPECIMEN / Unknown 05/25/2024 2:01 PM CDT 05/25/2024 2:08 PM CDT Antonino Cheek MD LAB - BEAKER POCT LABORATORY POC [facility] [address] Lab (1st floor, no room number) [place] [address] * Hepatitis B surface antigen (05/25/2024 9:25 AM CDT) Pathologist [facility] Hepatitis B Surface Antigen Nonreactive Nonreactive 05/25/2024 2:23 PM CDT [facility] LABORATORY Blood BLOOD SPECIMEN / Unknown Venipuncture / Unknown 05/25/2024 9:25 AM CDT 05/25/2024 10:13 AM CDT Jose Enrique Naylor MD LAB - BLOOD ORDERABL ES U LABORATORY [facility] [address] [facility], [place] [id number] * Hepatitis B Surface Antibody (05/25/2024 9:25 AM CDT) [facility] Hepatitis B Surface Antibody Reactive 05/25/2024 2:27 [...] >1,000.00 <8.5 m[IU]/mL 05/25/2024 2:27 PM CDT U LABORATORY Blood BLOOD SPECIMEN / Unknown Venipuncture / Unknown 05/25/2024 9:25 AM CDT 05/25/2024 10:13 AM CDT Jose Enrique Naylor MD LAB - BLOOD ORDERABL ES LABORATORY [facility] [address] [facility], [facility] [address] [phone] * Glucose by meter (05/25/2024 5:35 AM CDT) GLUCOSE BY METER POCT 86 70 - 99 mg/dL 05/25/2024 5:42 AM CDT RH LABORATORY POC Blood, Capillary BLOOD SPECIMEN / Unknown 05/25/2024 5:35 AM CDT 05/25/2024 5:42 AM CDT Antonino Cheek MD LAB - BEAKER POCT LABORATORY [facility] [address] Lab (1st floor, no room number) [place] [phone], [place] * Glucose by meter (05/25/2024 2:01 AM CDT) GLUCOSE BY METER POCT 86 70 - 99 mg/dL 05/25/2024 2:08 AM CDT LABORATORY POC Blood, Capillary BLOOD SPECIMEN / Unknown 05/25/2024 2:01 AM CDT 05/25/2024 2:08 AM CDT Antonino Cheek MD LAB - BEAKER POCT LABORATORY [facility] [address] Lab (1st floor, no room number) [place] [address], [place] * Glucose by meter (05/24/2024 8:52 PM CDT) GLUCOSE BY METER POCT 96 70 - 99 mg/dL 05/24/2024 8:59 PM CDT LABORATORY POC Blood, Capillary BLOOD SPECIMEN / Unknown 05/24/2024 8:52 PM CDT 05/24/2024 8:59 PM CDT Antonino Cheek MD LAB - BEAKER POCT LABORATORY [facility] [address] Lab (1st floor, no room number) [place] [address], [place] * Glucose by meter (05/24/2024 5:05 PM CDT) GLUCOSE BY METER POCT 84 70 - 99 mg/dL 05/24/2024 5:32 PM CDT RH LABORATORY POC Blood, Capillary BLOOD SPECIMEN / Unknown 05/24/2024 5:05 PM CDT 05/24/2024 5:32 PM CDT Antonino Cheek MD LAB - BEAKER POCT LABORATORY [facility] Lab [address] Lab (1st floor, no room number) [place] [phone] * (ABNORMAL) INR (05/24/2024 2:16 PM CDT) INR 1.16(H) 0.85 - 1.15 05/24/2024 2:34 PM CDT RH LABORATORY Blood BLOOD SPECIMEN / Unknown Venipuncture / Unknown 05/24/2024 2:16 PM CDT 05/24/2024 2:21 PM CDT Lizandro Barron MD LAB - BLOOD ORDERABL ES Performing Organization Address [facility]/ZIP Co de Phone Number [facility] [address] Lab (1st floor, no room number) [place] [address] * Glucose by meter (05/24/2024 12:20 PM CDT) GLUCOSE BY METER POCT 75 70 - 99 mg/dL 05/24/2024 12:26 PM CDT LABORATORY POC Blood, Capillary BLOOD SPECIMEN / Unknown 05/24/2024 12:20 PM CDT 05/24/2024 12:26 PM CDT Antonino DEAN - BEAKER POCT LABORATORY [facility] [address] Lab (1st floor, no room number) [place] [id number] * Glucose by meter (05/24/2024 9:12 AM CDT) GLUCOSE BY METER POCT 86 70 - 99 mg/dL 05/24/2024 9:19 AM CDT [facility] LABORATORY POC Blood, Capillary BLOOD SPECIMEN / Unknown 05/24/2024 9:12 AM CDT 05/24/2024 9:19 AM CDT Antonino Cheek MD LAB - BEAKER POCT [facility] LABORATORY POC [facility] [address] Lab (1st floor, no room number) [place] [address] * (ABNORMAL) CBC with platelets [...] LAB - BLOOD ORDERABL ES RH LABORATORY [facility] [address] Lab (1st floor, no room number) [place] [address], [place] * (ABNORMAL) Comprehensive metabolic panel (05/24/2024 6:09 [...] 6:40 AM CDT RH LABORATORY Comment:eGFR calculated us2020 [...] - BLOOD ORDERABL ES Performing Organization Address [facility]/ZIP Co de Phone Number [facility] [address] Lab (1st floor, no room number) [place] [phone] [place] [address] * INR (05/24/2024 6:09 AM CDT) INR 1.14 0.85 - 1.15 05/24/2024 6:27 AM CDT [facility] LABORATORY Blood STRUCTURE OF LEFT HAND / Unknown Venipuncture / Unknown 05/24/2024 6:09 AM CDT 05/24/2024 6:14 AM CDT Lizandro Barron MD LAB - BLOOD ORDERABL ES Performing Organization Address [facility]/ZIP Co de Phone Number [facility] [address] Lab (1st floor, no room number) [place] [phone] * (ABNORMAL) Glucose by meter (05/24/2024 4:49 AM CDT) GLUCOSE BY METER POCT 119(H) 70 - 99 mg/dL 05/24/2024 4:56 AM CDT LABORATORY POC Blood, Capillary BLOOD SPECIMEN / Unknown 05/24/2024 4:49 AM CDT 05/24/2024 4:56 AM CDT Antonino Cheek MD LAB - BEAKER POCT Performing Organization Address The [facility]/ZIP Co de Phone Number LABORATORY POC [facility] Lab [address] Lab (1st floor, no room number) [address] [place] [address] * (ABNORMAL) Glucose by meter (05/24/2024 1:13 AM CDT) GLUCOSE BY METER POCT 100(H) 70 - 99 mg/dL 05/24/2024 1:20 AM CDT RH LABORATORY POC Blood, Capillary BLOOD SPECIMEN / Unknown 05/24/2024 1:13 AM CDT 05/24/2024 1:20 AM CDT Antonino Cheek MD LAB - BEAKER POCT Performing Organization Address [facility]/ZIP Co de Phone Number LABORATORY [facility] Lab [address] Lab (1st floor, no room number) [address] [place] [address] * INR (05/23/2024 10:19 PM CDT) INR 1.04 0.85 - 1.15 05/23/2024 10:43 PM CDT LABORATORY Blood STRUCTURE OF LEFT UPPER LIMB / Unknown Venipuncture / Unknown 05/23/2024 10:19 PM CDT 05/23/2024 10:26 PM CDT Lizandro Barron MD LAB - BLOOD ORDERABL ES Performing Organization Address [facility]/ZIP Co de Phone Number [facility] Lab [address] Lab (1st floor, no room number) [place] [phone] [place] [address] * Glucose by meter (05/23/2024 9:58 PM CDT) GLUCOSE BY METER POCT 83 70 - 99 mg/dL 05/23/2024 10:04 PM CDT LABORATORY POC Blood, Capillary BLOOD SPECIMEN / Unknown 05/23/2024 9:58 PM CDT 05/23/2024 10:04 PM CDT Antonino Cheek MD LAB - BEAKER POCT Performing Organization Address [facility]/ZIP Co de Phone Number LABORATORY [facility] Lab [address] Lab (1st floor, no room number) [address] [place] [address] * (ABNORMAL) Glucose by meter (05/23/2024 9:06 PM CDT) GLUCOSE BY METER POCT 47(LL) 70 - 99 mg/dL 05/23/2024 9:13 PM CDT RH LABORATORY POC Comment:Dr/RN Notified Blood, Capillary BLOOD SPECIMEN / Unknown 05/23/2024 9:06 PM CDT 05/23/2024 9:13 PM CDT Antonino Cheek MD LAB - BEAKER POCT LABORATORY [facility] Lab [address] Lab (1st floor, no room number) [place] [phone] [place] [address] * Glucose by meter (05/23/2024 8:41 PM CDT) GLUCOSE BY METER POCT 78 70 - 99 mg/dL 05/23/2024 8:48 PM CDT LABORATORY POC Blood, Capillary BLOOD SPECIMEN / Unknown 05/23/2024 8:41 PM CDT 05/23/2024 8:48 PM CDT Antonino Cheek MD LAB - BEAKER POCT Performing Organization Address [facility]/ZIP Co de Phone Number LABORATORY [facility] Lab [address] Lab (1st floor, no room number) [place] [phone] [place] [address] * (ABNORMAL) Glucose by meter (05/23/2024 7:55 PM CDT) GLUCOSE BY METER POCT 67(L) 70 - 99 mg/dL 05/23/2024 8:02 PM CDT LABORATORY POC Blood, Capillary BLOOD SPECIMEN / Unknown 05/23/2024 7:55 PM CDT 05/23/2024 8:02 PM CDT Antonino Cheek MD LAB - BEAKER POCT LABORATORY [facility] Lab [address] Lab (1st floor, no room number) [place] [address], [place] * (ABNORMAL) Tissue Aerobic Bacterial Culture Routine [...] - MICRO GENERAL ORDERABLES [facility] Inf. Diseases Diag. Lab [address] [facility], [address] * (ABNORMAL) Gram Stain (05/23/2024 6:42 PM [...] - MICRO GENERAL ORDERABLES [facility] Inf. Diseases Diag. Lab [address] [facility], [address] * Anaerobic Bacterial Culture Routine (05/23/2024 6:42 PM CDT) Culture 4+ Mixed Aerobic and Anaerobic dev JOJO 05/25/2024 2:01 PM CDT [facility]AT[facility] Comment:No predominant organ ism Tissue SCROTAL STRUCTURE / Unknown Non-blood Collection / Unknown 05/23/2024 6:42 PM CDT 05/23/2024 6:46 PM CDT Lizandro Barron MD LAB - MICRO GENERAL ORDERABLES [facility]AT[facility] Inf. Diseases Diag. Lab [address] [facility], [address] [place] [address] * Glucose by meter (05/23/2024 5:41 PM CDT) GLUCOSE BY METER POCT 90 70 - 99 mg/dL 05/23/2024 5:49 PM CDT LABORATORY POC Blood, Capillary BLOOD SPECIMEN / Unknown 05/23/2024 5:41 PM CDT 05/23/2024 5:49 PM CDT Vi Coe DO LAB - BEAKER POC T LABORATORY POC [facility] Acute [facility] Lab [address] Lab (1st floor, no room number) [place] [address] * EKG 12-lead, tracing only (05/23/2024 5:08 PM CDT) Systolic Blood Pressure mmHg RADIOLOGY RESULTS Diastolic Blood Pressure mmHg RADIOLOGY RESULTS Ventricular Rate 63 BPM RAD IOLOGY RESULTS Atrial Rate 63 BPM RADIOLOG Y RESULTS VT Interval 222 ms RADIOLOG Y RESULTS QRS Duration 102 ms RADIOLO GY RESULTS QT 448 ms RADIOLOGY RESULTS QTc 458 ms RADIOLOGY RESULTS P [place] 54 degrees RADIOLOGY RESULTS R AXIS -5 degrees RADIOLOGY RESULTS T [place] 24 degrees RADIOLOGY RESULTS Interpretation ECG Sinus rhythm with 1st degree A-V block Septal infarct , age undetermined Abnormal ECG When compared with ECG of 02-Mar-2024 14:00, Septal infarct is now Present No significant change was found Confirmed by - EMERGENCY ROOM, PHYSICIAN ([id number]), tape editor LIZANDRO ZABALA ([id number]) on 05/24/2024 6:44:53 AM RADIOLOGY RESULTS 05/23/2024 5:08 PM CDT 05/24/2024 6:44 AM CDT Pan Michelle MD ECG ORDERABLES RADIOLOGY RESULTS * (ABNORMAL) INR (05/23/2024 3:42 PM CDT) INR 1.29(H) 0.85 - 1.15 05/23/2024 4:21 PM CDT LABORATORY Blood BLOOD SPECIMEN / Unknown Venipuncture / Unknown 05/23/2024 3:42 PM CDT 05/23/2024 3:45 PM CDT Vi Coe DO LAB - BLOOD ORDE MYRANDA LABORATORY [facility] Lab [address] Lab (1st floor, no room number) [place] [address] * CT Abdomen Pelvis w Contrast (05/23/2024 2:19 PM CDT) Anatomical Region Laterality Modality Abdomen/Pelvis, SUBRAD CT YAIMA DY, UMP CT ABDOMEN PELVIS, RAD CT Computed Tomography Impressions 05/23/2024 2:43 PM CDT IMPRESSION: 1. 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 2. ??Other chronic findings as discussed above. Findings were discussed with Dr. Kenna Coe at 2:35 PM. 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 ADDITIONAL FINDINGS: No lymphadenopathy in the [...] veins which are not included in the [id number]. 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 No destructive lesions in the bones. 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 ADDITIONAL FINDINGS: No lymphadenopathy in the [...] veins which are not included in the [id number]. 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 No destructive lesions in the bones. IMPRESSION: 1. 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 2. Other chronic findings as discussed above. Findings were discussed with Dr. Kenna Coe at 2:35 PM. MIKE LIPSCOMB MD SYSTEM ID: [id number] Vi Coe DO IMG CT ORDERABLE S * Adult Type and Screen (05/23/2024 2:07 PM CDT) ABO/RH(D) O POS 05/23/2024 1:37 PM CDT RH BLOOD BANK Antibody Screen Negative Negative 05/23/2024 1:37 PM CDT RH BLOOD BANK SPECIMEN EXPIRATION DATE [id number] 05/23/2024 1:37 PM CDT RH BLOOD BANK Blood BLOOD SPECIMEN / Unknown Venipuncture / Unknown 05/23/2024 2:07 PM CDT 05/23/2024 2:10 PM CDT Vi Coe DO LAB - BLOOD BANK TEST ORDER BLOOD BANK [address] [place] [address], [place] * (ABNORMAL) CBC with platelets and differential [...] Coe DO LAB - BLOOD ROVERTO WHITMORE [facility] Organization Address City/State/ZIP Co de Phone Number RH LABORATORY [facility] Lab [address] Lab (1st floor, no room number) [place] [address] * Lactic acid whole blood (05/23/2024 1:50 PM CDT) Pathologist [facility] Lactic Acid 0.9 0.7 - 2.0 mmol/L 05/23/2024 1:57 PM CDT RH LABORATORY Blood BLOOD SPECIMEN / Unknown Venipuncture / Unknown 05/23/2024 1:50 PM CDT 05/23/2024 1:54 PM CDT Vi Coe DO LAB - BLOOD ORDE RABLES [facility] Lab [address] Lab (1st floor, no room number) [place] [address] * Blood Culture Peripheral Blood (05/23/2024 1:50 PM CDT) Pathologist [facility] Culture No Growth 05/28/2024 4:06 PM CDT [facility] LABORATORY Blood BLOOD SPECIMEN / Unknown Venipuncture / Unknown 05/23/2024 1:50 PM CDT 05/23/2024 1:53 PM CDT Vi Coe DO LAB - MICRO GENE RAL ORDERABLES [facility]ORAT[facility] Inf. Diseases Diag. Lab [address] [facility], [address] [place] [address] * (ABNORMAL) Comprehensive metabolic panel (05/23/2024 1:50 PM CDT) Sodium 134(L) 135 - 145 mmol/L 05/23/2024 2:21 PM CDT LABORATORY Potassium 3.6 3.4 - 5.3 mmol/L [...] Coe DO LAB - BLOOD ROVERTO WHITMORE [facility] Acute [facility] Lab [address] Lab (1st floor, no room number) [place] [address], [place] * (ABNORMAL) INR (05/23/2024 1:50 PM CDT) INR >10.00(HH) 0.85 - 1.15 05/23/2024 2:30 PM CDT LABORATORY Blood BLOOD SPECIMEN / Unknown Venipuncture / Unknown 05/23/2024 1:50 PM CDT 05/23/2024 1:55 PM CDT Vi Coe DO LAB - BLOOD ORDE MYRANDA [facility] Lab [address] Lab (1st floor, no room number) [place] [address], [place] documented in this encounter Visit Diagnoses Diagnosis Supratherapeutic INR Abnormal coagulation profile 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 The following medications may be removed by dialysis and should be given after dialysis: metoprolol, Zosyn, vancomycin calcium acetate (PHOSLO) capsule 667 mg 667 mg, Oral, 3 TIMES DAILY WITH MEALS, First dose on Tue05/24/24 at 0900, Best if given with meals. $Given 05/30/2024 12:48 PM CDT 667 mg $Given 05/29/2024 6:32 PM CDT 667 mg $Given 05/29/2024 1:43 PM CDT 667 mg clindamycin (CLEOCIN) 900 mg in 50 mL D5W intermittent infusion STAT, 900 mg, Intravenous, ONCE, On Tue05/23/24 at 1340, For 1 dose, Indications: Skin and Soft Tissue Infection $New Bag 05/23/2024 2:00 PM CDT 900 mg 100 mL/hr clindamycin (CLEOCIN) 900 mg in 50 mL D5W intermittent infusion Routine, 900 mg, Intravenous, EVERY 8 HOURS, First dose on Tue05/23/24 at 2200, Indications: Skin and Soft Tissue Infection $New Bag 05/26/2024 5:27 AM CDT 900 mg 100 m L/hr $New Bag 05/25/2024 9:33 PM CDT 900 mg 100 mL/hr $New Bag 05/25/2024 1:59 PM CDT 900 mg 100 mL/hr dextrose 50 [...] mg/dL x 2 consecutive 15 minute checks. epoetin mauricio-epbx (RETACRIT) injection 10,000 Units 10,000 Units, Intravenous, ONCE IN DIALYSIS/CRRT, On Tue05/30/24 at 0900, For 1 dose, Give during dialysis., Dialysis $Given 05/30/2024 9:32 AM CDT 10,000 Units epoetin mauricio-epbx (RETACRIT) injection 4,000 Units 4,000 Units, Intravenous, ONCE IN DIALYSIS/CRRT, On Tue05/28/24 at 0800, For 1 dose, Give during dialysis., Dialysis $Given 05/28/2024 11:01 AM CDT 4,000 Units glucagon injection 1 mg 1 mg, Subcutaneous, [...] Document juice on I and O flowsheet. heparin (porcine) injection 500 Units, Hemodialysis Machine OR IV Push, ONCE IN DIALYSIS/CRRT, On Tue05/28/24 at 0800, For 1 dose, LOADING DOSE Administer loading dose prior to heparin infusion. PRE DIALYSIS RUN Dialysis, Dialysis $Given 05/28/2024 9:48 AM CDT 500 Units heparin (porcine) injection 500 Units, Hemodialysis Machine OR IV Push, ONCE IN DIALYSIS/CRRT, On Tue05/30/24 at 0730, For 1 dose, LOADING DOSE Administer loading dose prior to heparin infusion. PRE DIALYSIS RUN Dialysis, Dialysis $Given 05/30/2024 9:33 AM CDT 500 Units heparin 10,000 units/10 mL infusion (DIALYSIS USE) 500 Units/hr (0.5 mL/hr), Hemodialysis Machine, CONTINUOUS, Starting on Tue05/28/24 at 0800, DURING DIALYSIS TREATMENT, Dialysis $New Bag 05/28/2024 9:49 AM CDT 500 Units/hr 0.5 mL/hr heparin 10,000 units/10 mL infusion (DIALYSIS USE) 500 Units/hr (0.5 mL/hr), Hemodialysis Machine, CONTINUOUS, Starting on Tue05/30/24 at 0730, DURING DIALYSIS TREATMENT, Dialysis $New Bag 05/30/2024 9:33 AM CDT 500 Units/hr 0.5 mL/hr HYDROmorphone (DILAUDID) injection 0.2-0.4 mg 0.2-0.4 mg, Intravenous, EVERY 2 HOURS PRN, moderate pain, Starting on Tue05/23/24 at 2047 $Given 05/25/2024 8:44 AM CDT 0.2 mg $Given 05/24/2024 9:22 AM CDT 0.2 mg insulin aspart (NovoLOG) injection (RAPID ACTING) 1-7 Units, Subcutaneous, 3 TIMES DAILY BEFORE MEALS, First dose on [facility] 05/24/24 at 1200, Correction Scale - MEDIUM [...] mg/dL after administration of correction dose. $Given 05/29/2024 5:55 PM CDT 1 Units $Given 05/29/2024 1:43 PM CDT 1 Units $Given 05/28/2024 6:32 PM CDT 3 Units insulin aspart (NovoLOG) injection (RAPID ACTING) 1-5 Units, Subcutaneous, AT BEDTIME, First dose on [facility] 05/24/24 at 2200, MEDIUM INSULIN RESISTANCE DOSING [...] 350 mg/dL after administration of correction dose. iopamidol (ISOVUE-370) solution 500 mL 500 mL, Intravenous, ONCE, On Tue05/23/24 at 1415, For 1 dose $Given 05/23/2024 2:17 PM CDT 93 mLs iron sucrose (VENOFER) injection 50 mg 50 mg, Intravenous, ONCE IN DIALYSIS/CRRT, Administer over 2-5 Minutes, On 05/28/24 at 0800, For 1 dose, GIVE DURING DIALYSIS, Dialysis $Given 05/28/2024 10:59 AM CDT 50 mg metoprolol tartrate (LOPRESSOR) tablet 100 mg 100 mg, Oral, EVERY MORNING, First dose on [place] 05/24/24 at 0900, Tablets can be crushed and given via enteral route. $Given 05/30/2024 12:47 PM CDT 100 mg $Given 05/29/2024 9:39 AM CDT 100 mg $Given 05/28/2024 8:05 AM CDT 100 mg naloxone (NARCAN) injection [...] via hemodialysis machine ONCE, 1 dose, On Tue05/25/24 at 0800, Normal saline flushes may be used to maintain patency of circuit., Dialysis $Given 05/25/2024 11:23 AM CDT ondansetron (ZOFRAN) injection 4 mg 4 mg, Intravenous, EVERY 6 HOURS PRN, nausea, vomiting, Administer over 2-5 Minutes, Starting on [place] 05/24/24 at 1412 $Given 05/24/2024 2:58 PM CDT 4 m g pantoprazole (PROTONIX) EC tablet 40 mg 40 mg, Oral, EVERY MORNING BEFORE BREAKFAST, First dose on Tue05/24/24 at 0800, DO NOT CRUSH. $Given 05/29/2024 9:39 AM CDT 40 mg $Given 05/28/2024 8:05 AM CDT 40 mg $Given 05/27/2024 9:10 AM CDT 40 mg phytonadione (AQUAMEPHYTON) 10 MG/ML 10 mg in [...] Bag 05/23/2024 2:33 PM CDT 2.25 g piperacillin-tazobactam (ZOSYN) 2.25 g vial to attach to NS 100 ml bag Routine, 2.25 g, Intravenous, EVERY 8 HOURS, First dose on Tue05/23/24 at 2200, Dose adjusted per renal dosing policy. Estimated CrCl = 10-29 mL/min. Lactated Ringer's solution is not compatible with piperacillin-tazobactam for injection., Indications: Skin and Soft Tissue Infection $New Bag 05/30/2024 2:09 PM CDT 2.25 g $New Bag 05/30/2024 6:48 AM CDT 2.25 g 200 mL/hr $New Bag 05/29/2024 9:41 PM CDT 2.25 g prothrombin 4 factor [...] $Given 05/23/2024 2:55 PM CDT 4,156 Units senna-docusate (SENOKOT-S/PERICOLACE) 8.6-50 MG per tablet 1 tablet 1 tablet, Oral, 2 TIMES DAILY PRN, constipation, Starting on Tue05/23/24 at 2047, If no bowel movement in 24 hours, [...] Step 4: enema Hold for loose stools. $Given 05/26/2024 5:33 PM CDT 2 tablets sennosides (SENOKOT) tablet 2 tablet 2 tablet, Oral, EVERY OTHER DAY, First dose on Tue05/24/24 at 0900, Hold for loose stools. $Given 05/30/2024 12:47 PM CDT 2 tablets $Given 05/28/2024 8:05 AM CDT 2 tablets $Given 05/26/2024 8:15 AM CDT 2 tablets sodium chloride (PF) 0.9% PF flush 3 mL 3 mL, Intracatheter, EVERY 8 HOURS, First dose on Tue05/23/24 at 2100, to lock peripheral IV dormant line $Given 05/30/2024 6:48 AM CDT 3 mLs $Given 05/29/2024 9:32 PM CDT 3 mLs $Given 05/29/2024 1:43 PM CDT 3 mLs sodium chloride (PF) 0.9% PF flush 3 mL 3 mL, Intracatheter, EVERY 1 MIN PRN, line flush, other, to ensure patency or to lock dormant line, Starting on Tue05/23/24 at 2046 $Given 05/30/2024 2:1 1 PM CDT 3 mLs $Given 05/27/2024 9:14 AM CDT 3 mLs sodium chloride 0.9 % bag 100 mL [...] 1:55 PM CDT 1,000 mLs 1000 mL/hr sodium chloride 0.9% BOLUS 250 mL Intravenous, 250 mL, ONCE IN DIALYSIS/CRRT, On Tue05/25/24 at 0800, For 1 dose, For patient prime during dialysis, Dialysis $New Bag 05/25/2024 11:23 AM CDT 250 mLs sodium chloride 0.9% BOLUS 250 mL Intravenous, 250 mL, ONCE IN DIALYSIS/CRRT, On Tue05/28/24 at 0800, For 1 dose, For patient prime during dialysis, Dialysis $New Bag 05/28/2024 9:48 AM CDT 250 mLs sodium chloride 0.9% BOLUS 250 mL Intravenous, 250 mL, ONCE IN DIALYSIS/CRRT, On Tue05/30/24 at 0730, For 1 dose, For patient prime during dialysis, Dialysis $New Bag 05/30/2024 9:33 AM CDT 250 mLs sodium chloride 0.9% BOLUS 300 mL Hemodialysis Machine, 300 mL, ONCE, On Tue05/25/24 at 0800, For 1 dose, For Dialyzer Prime. (In Dialyzer), Dialysis $New Bag 05/25/2024 11:23 AM CDT 300 mLs sodium chloride 0.9% BOLUS 300 mL Hemodialysis Machine, 300 mL, ONCE, On Tue05/28/24 at 0800, For 1 dose, For Dialyzer Prime. (In Dialyzer), Dialysis $New Bag 05/28/2024 9:45 AM CDT 300 mLs sodium chloride 0.9% BOLUS 300 mL Hemodialysis Machine, 300 mL, ONCE, On Tue05/30/24 at 0730, For 1 dose, For Dialyzer Prime. (In Dialyzer), Dialysis $New Bag 05/30/2024 9:33 AM CDT 300 mLs Stop Heparin 60 minutes before end of treatment CONTINUOUS PRN, Starting on Tue05/30/24 at 0723, Until Tue05/30/24 at 1224, Stop Heparin 60 minutes before end of treatment, Dialysis $Given 05/30/2024 9:34 AM CDT vancomycin (VANCOCIN) 1,000 mg in 200 mL dextrose intermittent infusion Routine, 1,000 mg, Intravenous, ONCE, On Tue05/25/24 at 1700, For 1 dose, Infuse doses less than 1,250 mg over 1 hour. Infuse doses between 1,250 mg and less than 1,750 mg over 90 minutes. Infuse doses 1,750 mg and above over 2 hours., Indications: Skin and Soft Tissue Infection $New Bag 05/25/2024 5:19 PM CDT 1,000 mg 200 mL/hr vancomycin (VANCOCIN) 1,750 mg in 0.9% [...] 2:34 PM CDT 1,750 mg 250 mL/hr vitamin B complex with vitamin C (STRESS TAB) tablet 1 tablet 1 tablet, Oral, EVERY EVENING, First dose on Tue05/25/24 at 2000 $Given 05/29/2024 8:33 PM CDT 1 tablet $Given 05/28/2024 8:49 PM CDT 1 tablet $Given 05/27/2024 7:20 PM CDT 1 tablet warfarin ANTICOAGULANT (COUMADIN) half-tab 3.5 mg 3.5 mg, Oral, ONCE AT 6PM, On Tue05/30/24 at 1800, For 1 dose warfarin ANTICOAGULANT (COUMADIN) tablet 2 mg 2 mg, Oral, ONCE AT 6PM, On Tue05/27/24 at 1800, For 1 dose $Given 05/27/2024 6:09 PM CDT 2 mg warfarin ANTICOAGULANT (COUMADIN) tablet 2.5 mg 2.5 mg, Oral, ONCE AT 6PM, On Tue05/26/24 at 1800, For 1 dose $Given 05/26/2024 5:33 PM CDT 2.5 mg warfarin ANTICOAGULANT (COUMADIN) tablet 4 mg 4 mg, Oral, ONCE AT 6PM, On 05/28/24 at 1800, For 1 dose $Given 05/28/2024 6:31 PM CDT 4 mg warfarin ANTICOAGULANT (COUMADIN) tablet 4 mg 4 mg, Oral, ONCE AT 6PM, On Tu05/29/24 at 1800, For 1 dose $Given 05/29/2024 6:32 PM CDT 4 mg Warfarin Dose Required Daily - Pharmacist Managed SEE ADMIN INSTRUCTIONS, Starting on 05/26/24 at 1520, Until Tue05/30/24 at 1923, *Note to reorder warfarin daily* Nurse to contact pharmacist if dose not ordered by 6 PM. Pharmacy Warfarin Dosing Service Patient is on Warfarin Therapy - check for daily order documented in this encounter Active and Recently Administered Medications Times are shown in CDT. Scheduled Medication Order 05/28/2024 05/29/2024 05/30/2024 - MEDICATION INSTRUCTIONS for Dialysis Patients - SEE ADMIN INSTRUCTIONS, Starting on [place] 05/24/24 at 0923, Until Tue05/30/24 at 1923, Do not give any medication that may affect blood pressure or volume before dialysis. The following medications may be removed by dialysis and should be given after dialysis: metoprolol, Zosyn, vancomycin calcium acetate (PHOSLO) capsule 667 mg 667 mg, Oral, 3 TIMES DAILY WITH MEALS, First dose on [place] 05/24/24 at 0900, Best if given with meals. 0805 ($Given - Provider: Edie Pack RN)1443 ($Given - Provider: Edie Pack RN)1831 ($Given - Provider: Heidi Koo RN) 0939 ($Given - Provider: Edie Pack RN)1343 ($Given - Provider: Edie Pack RN)1832 ($Given - Provider: Kristin Lauren RN) 0807 (Not Given - Provider: Cecilia Crabtree RN - Reason: Patient not available - Comment: dialysis)1248 ($Given - Provider: Cecilia Crabtree, LINDA)1800 (Canceled Entry - Provider: Orders Generic Provider - Comment: Automatically canceled at discontinue of medication order) epoetin mauricio-epbx (RETACRIT) injection 10,000 Units (COMPLETED) 10,000 Units, Intravenous, ONCE IN DIALYSIS/CRRT, On Tue05/30/24 at 0900, For 1 dose, Give during dialysis., Dialysis 0932 ($Given - Provider: Abbie Ramirez RN) epoetin mauricio-epbx (RETACRIT) injection 4,000 Units (COMPLETED) 4,000 Units, Intravenous, ONCE IN DIALYSIS/CRRT, On Tue05/28/24 at 0800, For 1 dose, Give during dialysis., Dialysis 1101 ($Given - Provider: Cintia Valadez RN) heparin (porcine) injection (COMPLETED) 500 Units, Hemodialysis Machine OR IV Push, ONCE IN DIALYSIS/CRRT, On Tue05/28/24 at 0800, For 1 dose, LOADING DOSE Administer loading dose prior to heparin infusion. PRE DIALYSIS RUN Dialysis, Dialysis 0948 ($Given - Provider: Cintia Valadez RN) heparin (porcine) injection (COMPLETED) 500 Units, Hemodialysis Machine OR IV Push, ONCE IN DIALYSIS/CRRT, On Tue05/30/24 at 0730, For 1 dose, LOADING DOSE Administer loading dose prior to heparin infusion. PRE DIALYSIS RUN Dialysis, Dialysis 33 ($Given - Provider: Abbie Ramirez RN) insulin aspart (NovoLOG) injection (RAPID ACTING) [...] 350 mg/dL after administration of correction dose. 08 (Not Given - Provider: Edie Pack RN - Reason: Order parameters not met - Comment: [id number] (Not Given - Provider: Edie Pack RN - Reason: Order parameters not met - Comment: On Dialysis BG 91)1832 ($Given - Provider: Heidi Koo RN - Comment: ate late) 0940 (Not Given - Provider: Edie Pack RN - Reason: Order parameters not met - Comment: [id number])1343 ($Given - Provider: Edie Pack RN)1755 ($Given - Provider: Kristin Lauren RN) 0808 (Not Given - Provider: Cecilia Crabtree RN - Reason: Order parameters not met)1405 (Not Given - Provider: Cecilia Crabtree RN - Reason: Order parameters not met)1700 (Canceled Entry - Provider: Orders Generic Provider - Comment: Automatically canceled at discontinue of medication order) insulin aspart (NovoLOG) injection (RAPID ACTING) 1-5 [...] 350 mg/dL after administration of correction dose. 2222 (Not Given - Provider: Heidi Koo RN - Reason: Order parameters not met) 2151 (Not Given - Provider: Kristin Lauren RN - Reason: Order parameters not met) iron sucrose (VENOFER) injection 50 mg (COMPLETED) 50 mg, Intravenous, ONCE IN DIALYSIS/CRRT, Administer over 2-5 Minutes, On Tue05/28/24 at 0800, For 1 dose, GIVE DURING DIALYSIS, Dialysis 1059 ($Given - Provider: Cintia Valadez RN) metoprolol tartrate (LOPRESSOR) tablet 100 mg 100 mg, Oral, EVERY MORNING, First dose on [place] 05/24/24 at 0900, Tablets can be crushed and given via enteral route. 0805 ($Given - Provider: Edie Pack RN) 0939 ($Given - Provider: Edie Pack RN) 0810 (Not Given - Provider: Cecilia Crabtree RN - Reason: Contraindicated - Comment: going to dialysis now)1247 ($Given - Provider: Cecilia Crabtree RN) pantoprazole (PROTONIX) EC tablet 40 mg 40 mg, Oral, EVERY MORNING BEFORE BREAKFAST, First dose on Tue05/24/24 at 0800, DO NOT CRUSH. 0805 ($Given - Provider: Edie Pack RN) 0939 ($Given - Provider: Edie Pack RN) 0808 (Not Given - Provider: Cecilia Crabtree RN - Reason: Patient not available) piperacillin-tazobactam (ZOSYN) 2.25 g vial to attach to NS 100 ml bag Routine, 2.25 g, Intravenous, EVERY 8 HOURS, First dose on Tue05/23/24 at 2200, Dose adjusted per renal dosing policy. Estimated CrCl = 10-29 mL/min. Lactated Ringer's solution is not compatible with piperacillin-tazobactam for injection., Indications: Skin and Soft Tissue Infection 0618 ($New Bag - Provider: Wilver Jones RN)1419 ($New Bag - Provider: Edie Pack RN)2222 ($New Bag - Provider: Heidi Koo RN) 0535 ($New Bag - Provider: Marce Leon, LINDA)1343 ($New Bag - Provider: Edie Pack RN)2141 ($New Bag - Provider: Kristin Lauren RN) 0648 ($New Bag - Provider: Margarette Griffin RN)1409 ($New Bag - Provider: Cecilia Crabtree, LINDA) sennosides (SENOKOT) tablet 2 tablet 2 tablet, Oral, EVERY OTHER DAY, First dose on Tue05/24/24 at 0900, Hold for loose stools. 0805 ($Given - Provider: Edie Pack RN) 0808 (Not Given - Provider: Cecilia Crabtree RN - Reason: Patient not available)1247 ($Given - Provider: Cecilia Crabtree, LINDA) sodium chloride (PF) 0.9% PF flush 3 mL 3 mL, Intracatheter, EVERY 8 HOURS, First dose on Tue05/23/24 at 2100, to lock peripheral IV dormant line 0807 ($Given - Provider: Edie Pack RN)1419 ($Given - Provider: Edie Pack RN)2200 (Canceled Entry - Provider: Linn Generic Provider - Comment: Automatically canceled at discontinue of medication order) 0535 ($Given - Provider: Marce Leon, RN)1343 ($Given - Provider: Edie Pack RN)2132 ($Given - Provider: Kristin Lauren, LINDA) 0648 ($Given - Provider: Margarette Griffin RN)1411 (Canceled Entry - Provider: Cecilia Crabtree RN) sodium chloride 0.9% BOLUS 250 mL (COMPLETED) Intravenous, 250 mL, ONCE IN DIALYSIS/CRRT, On Tue05/28/24 at 0800, For 1 dose, For patient prime during dialysis, Dialysis 0948 ($New Bag - Provider: Cintia Valadez RN) sodium chloride 0.9% BOLUS 250 mL (COMPLETED) Intravenous, 250 mL, ONCE IN DIALYSIS/CRRT, On Tue05/30/24 at 0730, For 1 dose, For patient prime during dialysis, Dialysis 0933 ($New Bag - Provider: Abbie Ramirez RN) sodium chloride 0.9% BOLUS 300 mL (COMPLETED) Hemodialysis Machine, 300 mL, ONCE, On Tue05/28/24 at 0800, For 1 dose, For Dialyzer Prime. (In Dialyzer), Dialysis 0945 ($New Bag - Provider: Cintia Valadez RN) sodium chloride 0.9% BOLUS 300 mL (COMPLETED) Hemodialysis Machine, 300 mL, ONCE, On Tue05/30/24 at 0730, For 1 dose, For Dialyzer Prime. (In Dialyzer), Dialysis 0933 ($New Bag - Provider: Abbie Ramirez RN) vitamin B complex with vitamin C (STRESS TAB) tablet 1 tablet 1 tablet, Oral, EVERY EVENING, First dose on Tue05/25/24 at 1999 2048 ($Given - Provider: Heidi Koo RN) 2032 ($Given - Provider: Kristin Lauren, LINDA) warfarin ANTICOAGULANT (COUMADIN) half-tab 3.5 mg 3.5 mg, Oral, ONCE AT 6PM, On Tue05/30/24 at 1800, For 1 dose 1800 (Canceled Entry - Provider: Orders Generic Provider - Comment: Automatically canceled at discontinue of medication order) warfarin ANTICOAGULANT (COUMADIN) tablet 4 mg (COMPLETED) 4 mg, Oral, ONCE AT 6PM, On Tue05/28/24 at 1800, For 1 dose 1831 ($Given - Provider: Heidi Koo, LINDA) warfarin ANTICOAGULANT (COUMADIN) tablet 4 mg (COMPLETED) 4 mg, Oral, ONCE AT 6PM, On Tue05/29/24 at 1800, For 1 dose 1832 ($Given - Provider: Kristin Lauren, LINDA) Warfarin Dose Required Daily - Pharmacist Managed SEE ADMIN INSTRUCTIONS, Starting on 05/26/24 at 1520, Until Tue05/30/24 at 1923, *Note to reorder warfarin daily* Nurse to contact pharmacist if dose not ordered by 6 PM. Pharmacy Warfarin Dosing Service Patient is on Warfarin Therapy - check for daily order Continuous Medication Order 05/28/2024 05/29/2024 05/30/2024 heparin 10,000 units/10 mL infusion (DIALYSIS USE) (CANCELED) 500 Units/hr (0.5 mL/hr), Hemodialysis Machine, CONTINUOUS, Starting on Tue05/28/24 at 0800, DURING DIALYSIS TREATMENT, Dialysis 0949 ($New Bag - Provider: Cintia Valadez, LINDA)1219 (Stopped - Provider: Cintia Valadez, LINDA) heparin 10,000 units/10 mL infusion (DIALYSIS USE) (CANCELED) 500 Units/hr (0.5 mL/hr), Hemodialysis Machine, CONTINUOUS, Starting on Tue05/30/24 at 0730, DURING DIALYSIS TREATMENT, Dialysis 0933 ($New Bag - Provider: Abbie Ramirez RN) PRN Medication Order 05/28/2024 05/29/2024 05/30/2024 calcium carbonate (TUMS) chewable tablet 1,000 mg [...] Document juice on I and O flowsheet. HYDROmorphone (DILAUDID) injection 0.2-0.4 mg 0.2-0.4 mg, Intravenous, EVERY 2 HOURS PRN, moderate pain, Starting on Tue05/23/24 at 2046 lidocaine (LMX4) cream Topical, EVERY 1 HOUR PRN, pain, with VAD insertion, Starting on Tue05/23/24 at 2046, Apply at least 30 minutes prior to [...] with VAD insertion, Starting on Tue05/23/24 at 2046, MAX dose 1 mL subcutaneous OR intradermal [...] Minutes, Starting on Padmaja 05/24/24 at 1412 senna-docusate (SENOKOT-S/PERICOLACE) 8.6-50 MG per tablet 1 [...] dormant line, Starting on Tue05/23/24 at 2046 1411 ($Given - Provi norah: Cecilia Crabtree RN) Stop Heparin 60 minutes before end of treatment (CANCELED) CONTINUOUS PRN, Starting on Tue05/30/24 at 0723, Until Tue05/30/24 at 1224, Stop Heparin 60 minutes before end of treatment, Dialysis 0934 ($Given - Provi norah: Abbie Ramirez RN) Linked Groups Order Group 1: glucose gel [...] stools. documented in this encounter Care Teams Grill Associate Relationship Specialty Start Date End Date Cornell Butt PCP - General 06/24/11 documented as of this encounter
--- OUTSIDE RECORDS SUMMARY | 2024-06-04 11:01 | XMS_ITS | Encounter Summary ---
Author Organization [place] Address [facility] 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) Emergency Dept [address] [place] [address] Referral ID Status Reason Start Date Expiration Date Visits Re quested Visits Authorized [id number] 1 1 Encounter Details Date Type Department Care Team (Late st Contact Info) Description 05/23/2024 6:02 PM CDT Anesthesia Event [facility] [address] [place] [address] Tom Castro MD [facility] [place] [facility] [address] [place], [place] [id number] Pan Michelle MD [facility] [address] [place], [place] [id number] Anesthesia Record Procedure Summary Procedure Name Responsible Anesthesiologist Anesthesia Start Time Anesthesia Stop Time Incision and drainage, debridement of scrotal skin and subcutaneous tissues for necrotizing soft tissue infection of the scrotum (Scrotum) Tom Castro MD 05/23/24 18005/23/241918 Events Date Time Event Comment 05/23/2024 1711 1718 CRITICAL CARE SPECIALIST Ready for Procedure 180 AN REASSESS I attest that I have identified and re-evaluated the patient immediately before the induction of anesthesia and I am satisfied that the anesthetic plan is suitable for the patient's condition and procedure. The first vital signs recorded are pre- induction. Donnell Ramos APRN CRITICAL CARE SPECIALIST 1801 An Start Anesthesia Star t is defined [...] awake. Oxygen per face mask to PACU. 1909 AN Extubation All extubation criteria met prior [...] AV fistula; Left; Thigh 03/04/24 0939 by Incision/Surgical Site 05/23/24; 185; S crotum; fluffs/roll x1 surgical incision/wound 05/23/241854 by Lisa Guerrero, LINDA Peripheral IV 05/23/24; 1355; 18 G ; Anterior, Right; Upper forearm; Chlorhexidine 05/23/24 135 by Kassidy Morel RN 05/25/24 1914 by Chris Mcduffie RN Peripheral IV 05/23/24; 1434; 20 G ; Anterior, Left; Lower forearm; Chlorhexidine 05/23/24 1434 by Kassidy Morel RN 05/30/24 1451 by Cecilia Crabtree RN ETT Placement Date: 05/23/24; Placement Time: 1820 (created via procedure documentation); Mask Ventilation: 1; Induction Type: Intravenous; Ease of Intubation: Easy; Technique: Video laryngoscopy; Tube Size: 8 mm; VL Blade Size: Wister scope 3; Grade View: 1; Placement Person: CRITICAL CARE SPECIALIST; Attempts: 1 05/23/24 182 by Donnell Ramos APRN CRITICAL CARE SPECIALIST 05/23/24 191 by Donnell Ramos APRN CRNA Urethral Catheter 05/23/24; 1839; No; Surgical procedure; 16 fr 05/23/24 183 by Lisa Guerrero RN 05/23/24 1900 by Lisa Guerrero RN Packing 05/23/24; 1900; Scro janelle; Gauze bandage roll (Kerlix); 1 ([address] 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 Questions answered and patient/fulfillment representative(s) expressed understanding. - Discussed: - Discussed [...] Description 07/05/2024 1:15 PM CDT Office Visit [address] [place] [address] Lizandro Barron MD [address] [place] [address] documented as of this encounter Procedures Procedure Name Priority Date/Time Associated Diagnosis Comments ANE AIRWAY ETT PERFORMABLE Routine 05/23/2024 6:21 PM CDT documented in this encounter Results * ANE AIRWAY ETT PERFORMABLE (05/23/2024 6:21 PM CDT) Narrative Donnell Ramos APRN CRITICAL CARE SPECIALIST - 05/23/2024 6:21 PM CDT Donnell Ramos APRN CRITICAL CARE SPECIALIST ? 05/23/2024 ??6:33 PM Airway ? Patient location during procedure: OR ? Procedure Start/Stop Times: 05/23/2024 6:21 PM Staff - ? CRITICAL CARE SPECIALIST: Yasemin Almaguer APRN CRNA ? Performed By: [...] Time: 05/23/2024 6:21 PM Tom Castro MD [place] [facility] documented in this encounter Visit Diagnoses [...] mg documented in this encounter Care Teams Java Systems Analyst Relationship Specialty Start Date End Date Preet Huff PCP - General 06/24/11 documented as of this encounter
--- OUTSIDE RECORDS SUMMARY | 2024-06-04 11:02 | XMS_ITS | Encounter Summary ---
Author Organization [place] Address [address] [facility] 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
--- OUTSIDE RECORDS SUMMARY | 2024-06-04 11:02 | XMS_ITS | Encounter Summary ---
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 problem History is obtained [...] 100 ml bag 2.25 g Intravenous Once KennaVi Anna DO 2.25 g at 05/23/24 1433 prothrombin [...] mouth every evening 30 tablet 3 B Pyltbnl-T-Snblj Acid (WESCAPS PO) Take 1 capsule by [...] veins which are not included in the lgtpu-ty-jisa. 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 No destructive lesions in the bones. IMPRESSION: 1. 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 2. Other chronic findings as discussed above. Findings were discussed with Dr. Kenna Coe at 2:35 PM. MIKE LIPSCOMB MD SYSTEM ID: [id number] Associated attestation - Lizandro Barron MD - 05/23/2024 6:06 PM CDT Physician Attestation I saw and evaluated Herminio Victor as part of a shared BELT CUTTER/PA visit. I personally reviewed the vital signs, [...] is 78. Ok todischarge to floor per [facility]. documented in this encounter ED Notes * Kassidy Morel RN - 05/23/2024 4:59 PM CDT [facility] ED Nurse Handoff Report ED Chief [...] 2. Lift room needed: No. Bariatric: No Curriculum Manager Needed: No Isolation: No. Infection: Not [...] POS Antibody Screen Negative SPECIMEN EXPIRATION DATE [id number] BLOOD CULTURE ABO/RH TYPE AND SCREEN CT Abdomen Pelvis w Contrast Final Result IMPRESSION: 1. 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 2. Other chronic findings as discussed above. Findings were discussed with Dr. Kenna Coe at 2:35 PM. MIKE LIPSCOMB MD SYSTEM ID: [id number] Treatments provided: See MAR Family Comments: family [...] POS Antibody Screen Negative SPECIMEN EXPIRATION DATE [id number] BLOOD CULTURE ABO/RH TYPE AND SCREEN Imaging CT Abdomen Pelvis w Contrast Final Result IMPRESSION: 1. 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 2. Other chronic findings as discussed above. Findings were discussed with Dr. Kenna Coe at 2:35 PM. MIKE LIPSCOMB MD SYSTEM ID: [id number] Independent Interpretation None ED Course Medications Administered [...] care. [address] Cheek [facility] who accepts 4844 Arianna Goodman (Mother) [phone] (Home Phone) Updated mom Additional Documentation None Medical Decision Making / Diagnosis [facility] Diagnoses: None MIPS None MDM Herminio [...] me. Vi Hernandez DO 05/23/241926 * Lesley Avalos, LINDA - 05/23/2024 1:14 PM CDT Bed: ED27 Expected date: 05/23/24 Expected time: Means of arrival: Ambulance Comments: [facility] documented in this encounter Miscellaneous Notes * Plan of Care - Rand Ochoa OTR - 05/30/2024 5:21 PM CDT Occupational Therapy Discharge Summary Reason for therapy discharge: Discharged to home with home therapy. Progress towards therapy goal(s). See goals on Care Plan in [facility] electronic health record for goal details. Goals partially met. Barriers to achieving goals: discharge from facility. Therapy recommendation(s): Continued therapy is recommended. Rationale/Recommendations: Patient appears safe and able todischarge home with intermittent assist from family with higher level IADLS (just like baseline). Pt wouldbeenfit from HHOT to progress ADL tolerance. Pt not seen by advertising writer on this date, note written based [...] mobility. * Pharmacy-Anticoagulation Service - Joni Steel [facility] - 05/30/2024 3:00 PM CDT Images from the original note were not included. 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 INR Goal= 2-3 Warfarin ENVELOPE PRESS OPERATOR Regimen: 5 mg M-F and No dose [...] Agree with discharging the patient on their electrical tester warfarin regimen of 5 mg M-F and [...] Recent Flowsheet Documentation Taken 05/30/2024 0000 by Margaretet Griffin RN Pressure Reduction Techniques: frequent weight [...] regular toileting Bathing/Skin Care: moisturizer applied Taken 05/29/2024 183 by Kristin Lauren RN Moisture Interventions: Encourage [...] Manage Fall Risk Recent Flowsheet Documentation Taken 05/29/2024199 by Marce Leon RN Safety Promotion/Fall Prevention: activity supervised clutter free environment maintained increase visualization of patient nonskid shoes/slippers when out of bed safety round/check completed room near nurse's station Intervention: Prevent Skin Injury Recent Flowsheet Documentation Taken 05/29/202419 by Marce Leon RN Body Position: position changed independently Intervention: Prevent and Manage VTE (Venous Thromboembolism) Risk Recent Flowsheet Documentation Taken 05/29/202419 by Marce Leon RN VTE Prevention/Management: SCDs off (sequential compression devices) Goal: Optimal Comfort and Wellbeing Outcome: Progressing Goal: Readiness for Transition of Care Outcome: Progressing Problem: Infection Goal: Absence of Infection Signs and Symptoms Outcome: Progressing Problem: Comorbidity Management Goal: Blood Glucose Levels Within Targeted Range Outcome: Progressing Intervention: Monitor and Manage Glycemia Recent Flowsheet Documentation Taken 05/29/2024199 by Marce Leon RN Glycemic Management: blood glucose monitored Medication Review/Management: medications reviewed Problem: Skin Injury Risk Increased Goal: Skin Health and Integrity Outcome: Progressing Intervention: Optimize Skin Protection Recent Flowsheet Documentation Taken 05/29/202419 by Marce Leon RN Head of Bed [...] Prevent Skin Injury Recent Flowsheet Documentation Taken 05/28/2024 205 by Heidi Koo, RN Body Position: supine, head elevated Device Skin Pressure Protection: absorbent pad utilized/changed Taken 05/28/2024 1855 by Heidi Koo, RN Body Position: supine, head elevated Intervention: [...] Optimize Skin Protection Recent Flowsheet Documentation Taken 05/28/20242320 by Heidi Koo RN Activity Management: ambulated to bathroom Taken 05/28/20242051 by Heidi Koo RN Activity Management: ambulated to bathroom Taken 05/28/20241854 by Heidi Koo RN Activity Management: back [...] Flowsheet Documentation Taken 05/28/2024809 by Edie Pack RNreports developer Interventions: declines Goal: Readiness for Transition of [...] Recent Flowsheet Documentation Taken 05/28/2024809 by Edie aPck RN Activity Management: activity adjusted per tolerance [...] documentation flowsheets. Pertinent assessments: Assumed cares @ [phone].Disoriented to situation and time. VSS on RA. [...] shift note. Outcome: Progressing Flowsheets (Taken 05/28/2024 0655) Outcome Evaluation: Denies pain, slept well. Goal: [...] shift note. Outcome: Progressing Flowsheets (Taken 05/27/2024 2232) Outcome Evaluation: Wound care complete. BG 148 [...] Prevent Skin Injury Recent Flowsheet Documentation Taken 05/27/2024 0920 by Edie Pack RN Body Position: position changed independently Intervention: Prevent and Manage VTE (Venous Thromboembolism) Risk Recent Flowsheet Documentation Taken 05/27/2024 09 by Edie Pack RN VTE Prevention/Management: SCDs off (sequential compression devices) Intervention: Prevent Infection Recent Flowsheet Documentation Taken 05/27/2024919 by Edie Pack RN Infection Prevention: single patient room provided rest/sleep promoted hand hygiene promoted Goal: Optimal Comfort and Wellbeing Outcome: Progressing Intervention: Monitor Pain and Promote Comfort Recent Flowsheet Documentation Taken 05/27/2024919 by Edie Pack RNreports developer Interventions: declines Goal: Readiness for Transition of [...] Moisture Interventions: Encourage regular toileting Taken 05/27/2024 0800 by Edie Pack RN Moisture Interventions: Incontinence [...] documentation flowsheets. Pertinent assessments: Assumed cares @ [phone].Disoriented to time and situation. VSS on RA. [...] Optimize Skin Protection Recent Flowsheet Documentation Taken 05/26/2024 8878 by Wilver Jones RN Activity Management: bedrest [...] Fall Risk Recent Flowsheet Documentation Taken 05/26/2024 1703 by Kristin Lauren RN Safety Promotion/Fall Prevention: activity supervised assistive device/personal items within reach clutter free environment maintained nonskid shoes/slippers when out of bed safety round/check completed Intervention: Prevent and Manage VTE (Venous Thromboembolism) Risk Recent Flowsheet Documentation Taken 05/26/20241702 by Kristin Lauren RN VTE Prevention/Management: SCDs off (sequential compression devices) Intervention: Prevent Infection Recent Flowsheet Documentation Taken 05/26/20241702 by Kristin Lauren RN Infection Prevention: single [...] bedrest * Pharmacy-Anticoagulation Service - Luis Collado [facility] - 05/26/2024 4:50 PM CDT Clinical Pharmacy - Warfarin Dosing Consult Pharmacy has been consulted to manage this patient???s warfarin therapy. Indication: DVT/PE Prophylaxis Therapy Goal: INR 2-3 Warfarin Prior to Admission: Yes Warfarin ENVELOPE PRESS OPERATOR Regimen: 5 mg M-F and No dose [...] Manage Fall Risk Recent Flowsheet Documentation Taken 05/26/202435 by Laura Aggarwal RN Safety Promotion/Fall Prevention: increase visualization of patient Intervention: Prevent Skin Injury Recent Flowsheet Documentation Taken 05/26/2024 003 by Laura Aggarwal RN Body Position: position [...] Skin Protection Recent Flowsheet Documentation Taken 05/25/2024 172 by Chris Mcduffie RN Activity Management: bedrest Head of Bed [...] Recent Flowsheet Documentation Taken 05/25/2024 0800 by Mbangong, Jessica A, RN Moisture Interventions: Other (comment) Bathing/Skin Care: other (see comments) Intervention: Optimize Skin Protection Recent Flowsheet Documentation Taken 05/25/2024 0910 by Jessica Paz RN Activity Management: bedrest * Pharmacy-Vancomycin Dosing Service - Chucho Zuluaga, [facility] - 05/25/2024 3:31 PM CDT Pharmacy [...] Start Dose/Rate Route Frequency Ordered Stop 05/24/[address] [facility] - receiving intermittent dosing 1 each Intravenous SEE ADMIN INSTRUCTIONS 05/24/24 0818 05/23/24 2200 piperacillin-tazobactam (ZOSYN) 2.25 g vial to attach to NS 100 ml bag Note to Pharmacy: For [facility], [facility] and [facility]: For Zosyn-naive patients, use the Zosyn initial dose + extended infusion order panel. 2.25 g over 30 Minutes Intravenous EVERY 8 HOURS 05/23/24 2047 Contrast Orders - past 72 hours (72h [...] Shift Events Weaned to RA Treatment Plan: Margarito, Marnisyn, wound care and HD Bedside Nurse: Marce [...] shift note. Outcome: Progressing Flowsheets (Taken 05/24/2024 1755) Outcome Evaluation: Scrotal dressing changed twice. Did [...] Prevent Skin Injury Recent Flowsheet Documentation Taken 05/23/2024 2300 by Jazmín Alcantar RN Body Position: weight shifting Device Skin Pressure Protection: absorbent pad utilized/changed positioning supports utilized Intervention: Prevent Infection Recent Flowsheet Documentation Taken 05/23/20240 by Jazmín Alcantar RN Infection Prevention: rest/sleep [...] member and Thelma (aunt) via phone and [phone] Pertinent Information: outside meds--none added Changes made to ENVELOPE PRESS OPERATOR medication list: Added: none Deleted: norvasc, lipitor, Changed: protonix Allergies reviewed with patient and updates made in EHR: yes Medication History Completed By: Graham Joseph RPH 05/23/2024 9:51 PM ENVELOPE PRESS OPERATOR Med List Medication Sig Last Dose B Mcmunng-X-Duvmx Acid (WESCAPS PO) Take 1 capsule by [...] * Pharmacy-Vancomycin Dosing Service - John Rosado [facility] - 05/23/2024 9:03 PM CDT Pharmacy Vancomycin [...] 1 Hours Intravenous EVERY 24 HOURS 05/23/24210205/23/24 220 piperacillin-tazobactam (ZOSYN) 2.25 g vial to attach [...] and procedure to be performed. A 16 [place] coud?? catheter was placed through the urethra, [...] in stable condition. Lizandro Barron MD Urology [facility] documented in this encounter Plan of Treatment Upcoming Encounters Date Type Department Care Team (Late st Contact Info) Description 07/05/2024 1:15 PM CDT Office Visit [address] [address] Lizandro Barron MD [address] [id number] Scheduled Referrals Name Type Priority Associated Diagnoses [...] LAB - BEAKER POCT Performing Organization Address City/[facility]/ZIP Co de Phone Number LABORATORY [facility] [address] Lab (1st floor, no room number) [place] [address] * Glucose by meter (05/30/2024 7:13 AM CDT) GLUCOSE BY METER POCT 82 70 - 99 mg/dL 05/30/2024 7:19 AM CDT LABORATORY POC Blood, Capillary BLOOD SPECIMEN / Unknown 05/30/2024 7:13 AM CDT 05/30/2024 7:19 AM CDT Antonino Cheek MD LAB - BEAKER POCT LABORATORY [facility] Lab [address] Lab (1st floor, no room number) [place] [id number] * (ABNORMAL) INR (05/30/2024 6:54 AM CDT) INR 2.26(H) 0.85 - 1.15 05/30/2024 7:20 AM CDT LABORATORY Blood STRUCTURE OF RIGHT HAND / Unknown Venipuncture / Unknown 05/30/2024 6:54 AM CDT 05/30/2024 7:06 AM CDT Antonino Cheek MD LAB - BLOOD ORDERABL ES LABORATORY [facility] Acute Care Lab [address] [facility] Lab (1st floor, no room number) [place] [id number] [place] [address] * (ABNORMAL) Basic metabolic panel (05/30/2024 6:54 AM CDT) Pathologist [facility] Sodium 133(L) 135 - 145 mmol/L 05/30/2024 [...] - 10.4 mg/dL 05/30/2024 7:29 AM CDT LABORATORY Comment:Reference intervals for this [...] LAB - BLOOD ORDERABL ES RH LABORATORY [facility] Acute Care Lab [address] [facility] Lab (1st floor, no room number) [place] [address] * (ABNORMAL) CBC with platelets (05/30/2024 [...] Mcneal MD LAB - BLOOD ORDERABL ES [facility] Lab [address] Lab (1st floor, no room number) [place] [address] * (ABNORMAL) Glucose by meter (05/30/2024 2:18 AM CDT) GLUCOSE BY METER POCT 138(H) 70 - 99 mg/dL 05/30/2024 2:24 AM CDT LABORATORY POC Blood, Capillary BLOOD SPECIMEN / Unknown 05/30/2024 2:18 AM CDT 05/30/2024 2:24 AM CDT Antonino DEAN - BEAKER POCT Performing Organization Address [facility]/ZIP Co de Phone Number LABORATORY [facility] [address] Lab (1st floor, no room number) [place] [address] * (ABNORMAL) Glucose by meter (05/29/2024 9:28 PM CDT) GLUCOSE BY METER POCT 160(H) 70 - 99 mg/dL 05/29/2024 9:35 PM CDT LABORATORY POC Blood, Capillary BLOOD SPECIMEN / Unknown 05/29/2024 9:28 PM CDT 05/29/2024 9:35 PM CDT Antonino Cheek MD LAB - BEAKER POCT LABORATORY [facility] [address] Lab (1st floor, no room number) [place] [id number] * (ABNORMAL) Glucose by meter (05/29/2024 5:54 PM CDT) GLUCOSE BY METER POCT 159(H) 70 - 99 mg/dL 05/29/2024 6:01 PM CDT LABORATORY POC Blood, Capillary BLOOD SPECIMEN / Unknown 05/29/2024 5:54 PM CDT 05/29/2024 6:01 PM CDT Antonino Cheek MD LAB - BEAKER POCT LABORATORY [facility] [address] Lab (1st floor, no room number) [place] [address], [place] * (ABNORMAL) Glucose by meter (05/29/2024 1:41 PM CDT) GLUCOSE BY METER POCT 158(H) 70 - 99 mg/dL 05/29/2024 1:48 PM CDT LABORATORY POC Blood, Capillary BLOOD SPECIMEN / Unknown 05/29/2024 1:41 PM CDT 05/29/2024 1:48 PM CDT Antonino Cheek MD LAB - BEAKER POCT Performing Organization Address City/[facility]/ZIP Co de Phone Number LABORATORY [facility] [address] Lab (1st floor, no room number) [place] [address], [facility] * Glucose by meter (05/29/2024 7:54 AM CDT) GLUCOSE BY METER POCT 90 70 - 99 mg/dL 05/29/2024 8:01 AM CDT LABORATORY POC Blood, Capillary BLOOD SPECIMEN / Unknown 05/29/2024 7:54 AM CDT 05/29/2024 8:01 AM CDT Antonino Cheek MD LAB - BEAKER POCT LABORATORY [facility] [address] Lab (1st floor, no room number) [place] [address], [facility] * (ABNORMAL) INR (05/29/2024 6:22 AM CDT) INR 1.92(H) 0.85 - 1.15 05/29/2024 6:52 AM CDT LABORATORY Blood STRUCTURE OF RIGHT HAND / Unknown Venipuncture / Unknown 05/29/2024 6:22 AM CDT 05/29/2024 6:40 AM CDT Antonino Cheek MD LAB - BLOOD ORDERABL ES LABORATORY [facility] Lab [address] Lab (1st floor, no room number) [place] [address], [facility] * (ABNORMAL) Basic metabolic panel (05/29/2024 6:22 AM CDT) Sodium 133(L) 135 - 145 mmol/L 05/29/2024 7:01 AM CDT LABORATORY Potassium 4.0 3.4 - 5.3 mmol/L 05/29/2024 7:01 AM CDT LABORATORY Chloride 95(L) 98 - 107 mmol/L 05/29/2024 7:01 AM CDT LABORATORY Carbon Dioxide (CO2) 25 22 - 29 mmol/L 05/29/2024 7:01 AM CDT LABORATORY Anion Gap 13 7 - 15 mmol/L 05/29/2024 7:01 AM CDT LABORATORY Urea Nitrogen 30.7(H) 8.0 - 23.0 mg/dL 05/29/2024 7:01 AM CDT LABORATORY Creatinine 6.71(H) 0.67 - 1.17 mg/dL 05/29/2024 7:01 AM CDT LABORATORY GFR Estimate 9(L) >60 mL/min/1.7 3m2 05/29/2024 7:01 AM CDT LABORATORY Comment:eGFR calculated usin 2020 [...] LAB - BLOOD ORDERABL ES RH LABORATORY [facility] [address] [facility] ([facility], no room number) [place] [address], [facility] * (ABNORMAL) CBC with platelets (05/29/2024 6:22 [...] - BLOOD ORDERABL ES Performing Organization Address [facility]/ZIP Co de Phone Number LABORATORY [facility] Lab [address] Lab (1st floor, no room number) [place] [phone] [place] [address] * (ABNORMAL) Glucose by meter (05/29/2024 2:26 AM CDT) GLUCOSE BY METER POCT 103(H) 70 - 99 mg/dL 05/29/2024 2:33 AM CDT RH LABORATORY POC Blood, Capillary BLOOD SPECIMEN / Unknown 05/29/2024 2:26 AM CDT 05/29/2024 2:33 AM CDT Antonino DEAN - BEAKER POCT Performing Organization Address [facility]/ZIP Co de Phone Number LABORATORY [facility] [address] Lab (1st floor, no room number) [address] [place] [address] * (ABNORMAL) Glucose by meter (05/28/2024 9:50 PM CDT) GLUCOSE BY METER POCT 102(H) 70 - 99 mg/dL 05/28/2024 9:56 PM CDT LABORATORY POC Blood, Capillary BLOOD SPECIMEN / Unknown 05/28/2024 9:50 PM CDT 05/28/2024 9:56 PM CDT Antonino Cheek MD LAB - BEAKER POCT Performing Organization Address City/[facility]/ZIP Co de Phone Number LABORATORY [facility] [address] Lab (1st floor, no room number) [address] [place] [address] * (ABNORMAL) Glucose by meter (05/28/2024 5:08 PM CDT) GLUCOSE BY METER POCT 254(H) 70 - 99 mg/dL 05/28/2024 5:16 PM CDT RH LABORATORY POC Blood, Capillary BLOOD SPECIMEN / Unknown 05/28/2024 5:08 PM CDT 05/28/2024 5:16 PM CDT Antonino Cheek MD LAB - BEAKER POCT LABORATORY [facility] Lab [address] Lab (1st floor, no room number) [place] [address], [facility] * Glucose by meter (05/28/2024 1:58 PM CDT) GLUCOSE BY METER POCT 91 70 - 99 mg/dL 05/28/2024 2:05 PM CDT LABORATORY POC Blood, Capillary BLOOD SPECIMEN / Unknown 05/28/2024 1:58 PM CDT 05/28/2024 2:05 PM CDT Antonino Cheek MD LAB - BEAKER POCT Performing Organization Address [facility]/ZIP Co de Phone Number LABORATORY [facility] Lab [address] Lab (1st floor, no room number) [place] [address], [facility] * (ABNORMAL) Glucose by meter (05/28/2024 7:48 AM CDT) GLUCOSE BY METER POCT 128(H) 70 - 99 mg/dL 05/28/2024 7:54 AM CDT LABORATORY POC Blood, Capillary BLOOD SPECIMEN / Unknown 05/28/2024 7:48 AM CDT 05/28/2024 7:54 AM CDT Antonino Cheek MD LAB - BEAKER POCT Performing Organization Address City/[facility]/ZIP Co de Phone Number LABORATORY [facility] [address] Lab (1st floor, no room number) [place] [phone], [facility] * Extra Purple Top EDTA (LAB USE ONLY) (05/28/2024 6:07 AM CDT) Hold Specimen JIC 05/28/2024 7:32 AM CDT RH LABORATORY Blood STRUCTURE OF LEFT HAND / Unknown Venipuncture / Unknown 05/28/2024 6:07 AM CDT 05/28/2024 6:17 AM CDT Antonino Cheek MD LAB - BLOOD ORDERABL ES LABORATORY [facility] Lab [address] Lab (1st floor, no room number) [address] [place] [address] * Extra Green Top Tube (LAB USE ONLY) (05/28/2024 6:07 AM CDT) Hold Specimen JIC 05/28/2024 7:32 AM CDT RH LABORATORY Blood STRUCTURE OF LEFT HAND / Unknown Venipuncture / Unknown 05/28/2024 6:07 AM CDT 05/28/2024 6:17 AM CDT Antonino Cheek MD LAB - BLOOD ORDERABL ES Performing Organization Address [facility]/ZIP Co de Phone Number [facility] Lab [address] Lab (1st floor, no room number) [address] [place] [address] * (ABNORMAL) INR (05/28/2024 6:07 AM CDT) INR 1.87(H) 0.85 - 1.15 05/28/2024 6:27 AM CDT RH LABORATORY Blood STRUCTURE OF LEFT HAND / Unknown Venipuncture / Unknown 05/28/2024 6:07 AM CDT 05/28/2024 6:17 AM CDT Antonino Cheek MD LAB - BLOOD ORDERABL ES [facility] Lab [address] Lab (1st floor, no room number) [address] [place] [address] * (ABNORMAL) Hemoglobin (05/28/2024 6:07 AM CDT) Hemoglobin 7.7(L) 13.3 - 17.7 g/dL 05/28/2024 9:02 AM CDT LABORATORY Blood STRUCTURE OF LEFT HAND / Unknown Venipuncture / Unknown 05/28/2024 6:07 AM CDT 05/28/2024 6:17 AM CDT Dileep Anders MD LAB - BLOOD ORD ERABLES RH LABORATORY [facility] [address] [facility] ([facility], no room number) [place] [address], [facility] * (ABNORMAL) Basic metabolic panel (05/28/2024 6:07 AM CDT) Pathologist [facility] Sodium 136 135 - 145 mmol/L 05/28/2024 [...] 05/28/2024 9:03 AM CDT LABORATORY Comment:eGFR calculated us2020 CKD-EPI [...] Anders MD LAB - BLOOD ORD ERABLES [facility] [address] Lab (1st floor, no room number) [place] [phone] [place] [address] * (ABNORMAL) Glucose by meter (05/28/2024 2:19 AM CDT) GLUCOSE BY METER POCT 102(H) 70 - 99 mg/dL 05/28/2024 2:26 AM CDT RH LABORATORY POC Blood, Capillary BLOOD SPECIMEN / Unknown 05/28/2024 2:19 AM CDT 05/28/2024 2:26 AM CDT Antonino DEAN - BEAKER POCT Performing Organization Address [facility]/ZIP Co de Phone Number LABORATORY [facility] [address] Lab (1st floor, no room number) [place] [phone] [place] [address] * (ABNORMAL) Glucose by meter (05/27/2024 9:05 PM CDT) GLUCOSE BY METER POCT 148(H) 70 - 99 mg/dL 05/27/2024 9:13 PM CDT LABORATORY POC Blood, Capillary BLOOD SPECIMEN / Unknown 05/27/2024 9:05 PM CDT 05/27/2024 9:13 PM CDT Antonino DEAN - BEAKER POCT LABORATORY [facility] [address] Lab (1st floor, no room number) [address] * (ABNORMAL) Glucose by meter (05/27/2024 5:11 PM CDT) GLUCOSE BY METER POCT 148(H) 70 - 99 mg/dL 05/27/2024 5:20 PM CDT RH LABORATORY POC Blood, Capillary BLOOD SPECIMEN / Unknown 05/27/2024 5:11 PM CDT 05/27/2024 5:20 PM CDT Antonino Cheek MD LAB - BEAKER POCT LABORATORY [facility] [address] Lab (1st floor, no room number) [address] * (ABNORMAL) Glucose by meter (05/27/2024 11:42 AM CDT) GLUCOSE BY METER POCT 149(H) 70 - 99 mg/dL 05/27/2024 11:49 AM CDT LABORATORY POC Blood, Capillary BLOOD SPECIMEN / Unknown 05/27/2024 11:42 AM CDT 05/27/2024 11:49 AM CDT Antonino Cheek MD LAB - BEAKER POCT Performing Organization Address [facility]/ZIP Co de Phone Number LABORATORY [facility] [address] Lab (1st floor, no room number) [address] * (ABNORMAL) Glucose by meter (05/27/2024 7:44 AM CDT) GLUCOSE BY METER POCT 108(H) 70 - 99 mg/dL 05/27/2024 7:51 AM CDT RH LABORATORY POC Blood, Capillary BLOOD SPECIMEN / Unknown 05/27/2024 7:44 AM CDT 05/27/2024 7:51 AM CDT Antonino Cheek MD LAB - BEAKER POCT Performing Organization Address [facility]/ZIP Co de Phone Number LABORATORY [facility] [address] Lab (1st floor, no room number) [place] [phone] [place] [address] * (ABNORMAL) INR (05/27/2024 7:03 AM CDT) INR 1.81(H) 0.85 - 1.15 05/27/2024 7:17 AM CDT LABORATORY Blood STRUCTURE OF RIGHT HAND / Unknown Venipuncture / Unknown 05/27/2024 7:03 AM CDT 05/27/2024 7:07 AM CDT Antonino Cheek MD LAB - BLOOD ORDERABL ES Performing Organization Address [facility]/ZIP Co de Phone Number [facility] [address] Lab (1st floor, no room number) [place] [phone] [place] [address] * (ABNORMAL) Glucose by meter (05/27/2024 2:03 AM CDT) GLUCOSE BY METER POCT 157(H) 70 - 99 mg/dL 05/27/2024 2:10 AM CDT LABORATORY POC Blood, Capillary BLOOD SPECIMEN / Unknown 05/27/2024 2:03 AM CDT 05/27/2024 2:10 AM CDT Antonino Cheek MD LAB - BEAKER POCT Performing Organization Address [facility]/ZIP Co de Phone Number LABORATORY [facility] [address] Lab (1st floor, no room number) [place] [phone] * (ABNORMAL) Glucose by meter (05/26/2024 9:29 PM CDT) GLUCOSE BY METER POCT 155(H) 70 - 99 mg/dL 05/26/2024 9:37 PM CDT LABORATORY POC Blood, Capillary BLOOD SPECIMEN / Unknown 05/26/2024 9:29 PM CDT 05/26/2024 9:37 PM CDT Antonino Cheek MD LAB - BEAKER POCT Performing Organization Address [facility]/ZIP Co de Phone Number LABORATORY [facility] [address] Lab (1st floor, no room number) [place] [phone] [place] [address] * (ABNORMAL) Glucose by meter (05/26/2024 4:10 PM CDT) GLUCOSE BY METER POCT 174(H) 70 - 99 mg/dL 05/26/2024 4:19 PM CDT LABORATORY POC Blood, Capillary BLOOD SPECIMEN / Unknown 05/26/2024 4:10 PM CDT 05/26/2024 4:19 PM CDT Antonino Cheek MD LAB - BEAKER POCT Performing Organization Address [facility]/ZIP Co de Phone Number LABORATORY [facility] [address] Lab (1st floor, no room number) [place] [phone] [place] [address] * (ABNORMAL) INR (05/26/2024 4:09 PM CDT) INR 1.67(H) 0.85 - 1.15 05/26/2024 4:28 PM CDT LABORATORY Blood STRUCTURE OF LEFT UPPER LIMB / Unknown Venipuncture / Unknown 05/26/2024 4:09 PM CDT 05/26/2024 4:15 PM CDT Antonino Cheek MD LAB - BLOOD ORDERABL ES Performing Organization Address City/[facility]/ZIP Co de Phone Number [facility] [address] Lab (1st floor, no room number) [place] [phone] [place] [address] * (ABNORMAL) Glucose by meter (05/26/2024 11:37 AM CDT) GLUCOSE BY METER POCT 197(H) 70 - 99 mg/dL 05/26/2024 11:44 AM CDT RH LABORATORY POC Blood, Capillary BLOOD SPECIMEN / Unknown 05/26/2024 11:37 AM CDT 05/26/2024 11:44 AM CDT Antonino Cheek MD LAB - BEAKER POCT RH LABORATORY [facility] [address] Lab (1st floor, no room number) [address] * Glucose by meter (05/26/2024 8:22 AM CDT) GLUCOSE BY METER POCT 85 70 - 99 mg/dL 05/26/2024 8:29 AM CDT RH LABORATORY POC Blood, Capillary BLOOD SPECIMEN / Unknown 05/26/2024 8:22 AM CDT 05/26/2024 8:29 AM CDT Antonino Cheek MD LAB - BEAKER POCT RH LABORATORY [facility] [address] Lab (1st floor, no room number) [address] * (ABNORMAL) CBC with platelets and [...] LAB - BLOOD ORDERABL ES RH LABORATORY [facility] Lab [address] Lab (1st floor, no room number) [place] [address] * (ABNORMAL) Basic metabolic panel (05/26/2024 5:47 [...] - 10.4 mg/dL 05/26/2024 6:33 AM CDT LABORATORY Comment:Reference intervals for this [...] - BLOOD ORDERABL ES Performing Organization Address City/[facility]/ZIP Co de Phone Number [facility] [address] Lab (1st floor, no room number) [place] [phone] [place] [address] * (ABNORMAL) Glucose by meter (05/26/2024 1:57 AM CDT) GLUCOSE BY METER POCT 123(H) 70 - 99 mg/dL 05/26/2024 2:04 AM CDT RH LABORATORY POC Blood, Capillary BLOOD SPECIMEN / Unknown 05/26/2024 1:57 AM CDT 05/26/2024 2:04 AM CDT Antonino DEAN - BEAKER POCT Performing Organization Address [facility]/ZIP Co de Phone Number LABORATORY [facility] [address] Lab (1st floor, no room number) [place] [phone] [place] [address] * (ABNORMAL) Glucose by meter (05/25/2024 9:32 PM CDT) GLUCOSE BY METER POCT 155(H) 70 - 99 mg/dL 05/25/2024 9:39 PM CDT LABORATORY POC Blood, Capillary BLOOD SPECIMEN / Unknown 05/25/2024 9:32 PM CDT 05/25/2024 9:39 PM CDT Antonino DEAN - BEAKER POCT Performing Organization Address [facility]/ZIP Co de Phone Number LABORATORY [facility] [address] Lab (1st floor, no room number) [place] [phone] * (ABNORMAL) Glucose by meter (05/25/2024 7:06 PM CDT) GLUCOSE BY METER POCT 183(H) 70 - 99 mg/dL 05/25/2024 7:14 PM CDT RH LABORATORY POC Blood, Capillary BLOOD SPECIMEN / Unknown 05/25/2024 7:06 PM CDT 05/25/2024 7:14 PM CDT Antonino Cheek MD LAB - BEAKER POCT LABORATORY [facility] [address] Lab (1st floor, no room number) [place] [address], [facility] * (ABNORMAL) Glucose by meter (05/25/2024 5:29 PM CDT) Pathologist [facility] [place] GLUCOSE BY METER POCT 142(H) 70 - 99 mg/dL 05/25/2024 5:36 PM CDT LABORATORY POC Blood, Capillary BLOOD SPECIMEN / Unknown 05/25/2024 5:29 PM CDT 05/25/2024 5:36 PM CDT Antonino Cheek MD LAB - BEAKER POCT Performing Organization Address [facility]/ZIP Co de Phone Number LABORATORY [facility] [address] Lab (1st floor, no room number) [place] [address], [facility] * Vancomycin level (05/25/2024 2:04 PM CDT) [facility] Vancomycin 11.9 ug/mL 05/25/2024 3:28 PM CDT LABORATORY Comment: Traditional Dosing Therapeutic Range: Trough 10-15 ug/mL Peak 20-40 ug/mL Critical: Greater than 25.0 ug/mL Blood STRUCTURE OF RIGHT UPPER LIMB / Unknown Venipuncture / Unknown 05/25/2024 2:04 PM CDT 05/25/2024 2:07 PM CDT Antonino Cheek MD LAB - BLOOD ORDERABL ES [facility] [address] Lab (1st floor, no room number) [place] [address], [facility] * Extra Purple Top EDTA (LAB USE ONLY) (05/25/2024 2:04 PM CDT) Pathologist [facility] Hold Specimen JIC 05/25/2024 3:17 PM CDT RH LABORATORY Blood STRUCTURE OF RIGHT UPPER LIMB / Unknown Venipuncture / Unknown 05/25/2024 2:04 PM CDT 05/25/2024 2:07 PM CDT Antonino Cheek MD LAB - BLOOD ORDERABL ES LABORATORY [facility] [address] Lab (1st floor, no room number) [place] [phone] [place] [address] * Extra Green Top Tube (LAB USE ONLY) (05/25/2024 2:04 PM CDT) Hold Specimen [facility] 05/25/2024 3:17 PM CDT LABORATORY Blood STRUCTURE OF RIGHT UPPER LIMB / Unknown Venipuncture / Unknown 05/25/2024 2:04 PM CDT 05/25/2024 2:07 PM CDT Antonino Cheek MD LAB - BLOOD ORDERABL ES LABORATORY [facility] [address] Lab (1st floor, no room number) [place] [phone] [place] [address] * Glucose by meter (05/25/2024 2:01 PM CDT) GLUCOSE BY METER POCT 70 70 - 99 mg/dL 05/25/2024 2:08 PM CDT LABORATORY POC Blood, Capillary BLOOD SPECIMEN / Unknown 05/25/2024 2:01 PM CDT 05/25/2024 2:08 PM CDT Antonino Cheek MD LAB - BEAKER POCT LABORATORY POC [facility] [address] Lab (1st floor, no room number) [place] [address], [facility] * Hepatitis B surface antigen (05/25/2024 9:25 AM CDT) Pathologist [facility] Hepatitis B Surface Antigen Nonreactive Nonreactive 05/25/2024 2:23 PM CDT UU LABORATORY Blood BLOOD SPECIMEN / Unknown Venipuncture / Unknown 05/25/2024 9:25 AM CDT 05/25/2024 10:13 AM CDT Jose Enrique Naylor MD LAB - BLOOD ORDERABL ES Performing Organization Address City/[facility] Co de Phone Number U LABORATORY [facility] [place] [facility] Lab [address] [facility], Room [address] [phone] * Hepatitis B Surface Antibody (05/25/2024 9:25 AM CDT) [facility] Hepatitis B Surface Antibody Reactive 05/25/2024 [...] LAB - BLOOD ORDERABL ES UU LABORATORY [facility] [place] [facility] Lab [address] [facility], [address] [phone] * Glucose by meter (05/25/2024 5:35 AM CDT) Pathologist [facility] GLUCOSE BY METER POCT 86 70 - 99 mg/dL 05/25/2024 5:42 AM CDT LABORATORY POC Blood, Capillary BLOOD SPECIMEN / Unknown 05/25/2024 5:35 AM CDT 05/25/2024 5:42 AM CDT Antonino Cheek MD LAB - BEAKER POCT LABORATORY [facility] [address] Lab (1st floor, no room number) [place] [address], [facility] * Glucose by meter (05/25/2024 2:01 AM CDT) GLUCOSE BY METER POCT 86 70 - 99 mg/dL 05/25/2024 2:08 AM CDT LABORATORY POC Blood, Capillary BLOOD SPECIMEN / Unknown 05/25/2024 2:01 AM CDT 05/25/2024 2:08 AM CDT Antonino Cheek MD LAB - BEAKER POCT Performing Organization Address City/[facility]/ZIP Co de Phone Number LABORATORY [facility] [address] Lab (1st floor, no room number) [place] [address], [facility] * Glucose by meter (05/24/2024 8:52 PM CDT) GLUCOSE BY METER POCT 96 70 - 99 mg/dL 05/24/2024 8:59 PM CDT LABORATORY POC Blood, Capillary BLOOD SPECIMEN / Unknown 05/24/2024 8:52 PM CDT 05/24/2024 8:59 PM CDT Antonino Cheek MD LAB - BEAKER POCT LABORATORY [facility] [address] Lab (1st floor, no room number) [place] [address], [facility] * Glucose by meter (05/24/2024 5:05 PM CDT) GLUCOSE BY METER POCT 84 70 - 99 mg/dL 05/24/2024 5:32 PM CDT RH LABORATORY POC Blood, Capillary BLOOD SPECIMEN / Unknown 05/24/2024 5:05 PM CDT 05/24/2024 5:32 PM CDT Antonino Cheek MD LAB - BEAKER POCT LABORATORY [facility] [address] Lab (1st floor, no room number) [place] [phone] [place] [address] * (ABNORMAL) INR (05/24/2024 2:16 PM CDT) INR 1.16(H) 0.85 - 1.15 05/24/2024 2:34 PM CDT LABORATORY Blood BLOOD SPECIMEN / Unknown Venipuncture / Unknown 05/24/2024 2:16 PM CDT 05/24/2024 2:21 PM CDT Lizandro Barron MD LAB - BLOOD ORDERABL ES Performing Organization Address [facility]/ZIP Co de Phone Number LABORATORY [facility] [address] Lab (1st floor, no room number) [place] [phone], [facility] * Glucose by meter (05/24/2024 12:20 PM CDT) GLUCOSE BY METER POCT 75 70 - 99 mg/dL 05/24/2024 12:26 PM CDT LABORATORY POC Blood, Capillary BLOOD SPECIMEN / Unknown 05/24/2024 12:20 PM CDT 05/24/2024 12:26 PM CDT Antonino Cheek MD LAB - BEAKER POCT LABORATORY [facility] [address] Lab (1st floor, no room number) [place] [phone], [facility] * Glucose by meter (05/24/2024 9:12 AM CDT) GLUCOSE BY METER POCT 86 70 - 99 mg/dL 05/24/2024 9:19 AM CDT RH LABORATORY POC Blood, Capillary BLOOD SPECIMEN / Unknown 05/24/2024 9:12 AM CDT 05/24/2024 9:19 AM CDT Antonino Cheek MD LAB - BEAKER POCT RH LABORATORY POC [facility] [address] Lab (1st floor, no room number) [place] [address] * (ABNORMAL) CBC with platelets and differential (05/24/2024 6:09 AM CDT) [facility] WBC Count 8.2 4.0 - 11.0 10e3/uL [...] MD LAB - BLOOD ORDERABL ES LABORATORY [facility] Lab [address] [facility] Lab (1st floor, no room number) [place] [address], [facility] * (ABNORMAL) Comprehensive metabolic panel (05/24/2024 6:09 [...] - BLOOD ORDERABL ES Performing Organization Address [facility]/ZIP Co de Phone Number [facility] Lab [address] Lab (1st floor, no room number) [place] [phone] [place] [address] * INR (05/24/2024 6:09 AM CDT) INR 1.14 0.85 - 1.15 05/24/2024 6:27 AM CDT RH LABORATORY Blood STRUCTURE OF LEFT HAND / Unknown Venipuncture / Unknown 05/24/2024 6:09 AM CDT 05/24/2024 6:14 AM CDT Lizandro Barron MD LAB - BLOOD ORDERABL ES Performing Organization Address [facility]/ZIP Co de Phone Number [facility] [address] Lab (1st floor, no room number) [place] [phone] * (ABNORMAL) Glucose by meter (05/24/2024 4:49 AM CDT) GLUCOSE BY METER POCT 119(H) 70 - 99 mg/dL 05/24/2024 4:56 AM CDT LABORATORY POC Blood, Capillary BLOOD SPECIMEN / Unknown 05/24/2024 4:49 AM CDT 05/24/2024 4:56 AM CDT Antonino Cheek MD LAB - BEAKER POCT Performing Organization Address [facility]/ZIP Co de Phone Number LABORATORY [facility] [address] Lab (1st floor, no room number) [place] [phone] * (ABNORMAL) Glucose by meter (05/24/2024 1:13 AM CDT) GLUCOSE BY METER POCT 100(H) 70 - 99 mg/dL 05/24/2024 1:20 AM CDT RH LABORATORY POC Blood, Capillary BLOOD SPECIMEN / Unknown 05/24/2024 1:13 AM CDT 05/24/2024 1:20 AM CDT Antonino Cheek MD LAB - BEAKER POCT LABORATORY [facility] [address] Lab (1st floor, no room number) [address] * INR (05/23/2024 10:19 PM CDT) INR 1.04 0.85 - 1.15 05/23/2024 10:43 PM CDT RH LABORATORY Blood STRUCTURE OF LEFT UPPER LIMB / Unknown Venipuncture / Unknown 05/23/2024 10:19 PM CDT 05/23/2024 10:26 PM CDT Lizandro Barron MD LAB - BLOOD ORDERABL ES Performing Organization Address [facility]/ZIP Co de Phone Number [facility] [address] Lab (1st floor, no room number) [address] * Glucose by meter (05/23/2024 9:58 PM CDT) GLUCOSE BY METER POCT 83 70 - 99 mg/dL 05/23/2024 10:04 PM CDT LABORATORY POC Blood, Capillary BLOOD SPECIMEN / Unknown 05/23/2024 9:58 PM CDT 05/23/2024 10:04 PM CDT Antonino Cheek MD LAB - BEAKER POCT LABORATORY [facility] [address] Lab (1st floor, no room number) [address] * (ABNORMAL) Glucose by meter (05/23/2024 9:06 PM CDT) GLUCOSE BY METER POCT 47(LL) 70 - 99 mg/dL 05/23/2024 9:13 PM CDT RH LABORATORY POC Comment:Dr/RN Notified Blood, Capillary BLOOD SPECIMEN / Unknown 05/23/2024 9:06 PM CDT 05/23/2024 9:13 PM CDT Antonino Cheek MD LAB - BEAKER POCT LABORATORY [facility] [address] Lab (1st floor, no room number) [place] [address] * Glucose by meter (05/23/2024 8:41 PM CDT) GLUCOSE BY METER POCT 78 70 - 99 mg/dL 05/23/2024 8:48 PM CDT LABORATORY POC Blood, Capillary BLOOD SPECIMEN / Unknown 05/23/2024 8:41 PM CDT 05/23/2024 8:48 PM CDT Antonino Cheek MD LAB - BEAKER POCT Performing Organization Address [facility]/ZIP Co de Phone Number LABORATORY [facility] [address] Lab (1st floor, no room number) [place] [address], [facility] * (ABNORMAL) Glucose by meter (05/23/2024 7:55 PM CDT) GLUCOSE BY METER POCT 67(L) 70 - 99 mg/dL 05/23/2024 8:02 PM CDT LABORATORY POC Blood, Capillary BLOOD SPECIMEN / Unknown 05/23/2024 7:55 PM CDT 05/23/2024 8:02 PM CDT Antonino Cheek MD LAB - BEAKER POCT LABORATORY [facility] [address] Lab (1st floor, no room number) [place] [address], [facility] * (ABNORMAL) Tissue Aerobic Bacterial Culture Routine [...] - MICRO GENERAL ORDERABLES UU IDD LABORATORY [facility] Inf. Diseases Diag. Lab [address] [facility], Room [place] [phone] * (ABNORMAL) Gram Stain (05/23/2024 [...] - MICRO GENERAL ORDERABLES [facility] IDD LABORATORY [facility] Inf. Diseases Diag. Lab [address] [facility], Room [place] [phone] * Anaerobic Bacterial Culture Routine (05/23/2024 6:42 PM CDT) Culture 4+ Mixed Aerobic and Anaerobic dev JOJO 05/25/2024 2:01 PM CDT UU IDD LABORATORY Comment:No predominant organ ism Tissue SCROTAL STRUCTURE / Unknown Non-blood Collection / Unknown 05/23/2024 6:42 PM CDT 05/23/2024 6:46 PM CDT Lizandro Barron MD LAB - MICRO GENERAL ORDERABLES [facility] IDD LABORATORY [facility] Inf. Diseases Diag. Lab [address] [facility], [address] [place] [address] * Glucose by meter (05/23/2024 5:41 PM CDT) GLUCOSE BY METER POCT 90 70 - 99 mg/dL 05/23/2024 5:49 PM CDT LABORATORY POC Blood, Capillary BLOOD SPECIMEN / Unknown 05/23/2024 5:41 PM CDT 05/23/2024 5:49 PM CDT Vi Coe DO LAB - BEAKER POC T LABORATORY POC [facility] Lab [address] Lab (1st floor, no room number) [place] [address] * EKG 12-lead, tracing only (05/23/2024 5:08 PM CDT) Systolic Blood Pressure mmHg RADIOLOGY RESULTS Diastolic Blood Pressure mmHg RADIOLOGY RESULTS Ventricular Rate 63 BPM RAD IOLOGY RESULTS Atrial Rate 63 BPM RADIOLOG Y RESULTS KS Interval 222 ms RADIOLOG Y RESULTS QRS Duration 102 ms RADIOLO GY RESULTS QT 448 ms RADIOLOGY RESULTS QTc 458 ms RADIOLOGY RESULTS P Central 54 degrees RADIOLOGY RESULTS R AXIS -5 degrees RADIOLOGY RESULTS T Central 24 degrees RADIOLOGY RESULTS Interpretation ECG Sinus rhythm with 1st degree A-V block Septal infarct , age undetermined Abnormal ECG When compared with ECG of 02-Mar-2024 14:00, Septal infarct is now Present No significant change was found Confirmed by - EMERGENCY ROOM, PHYSICIAN ([id number]), video news editor LIZANDRO ZABALA ([id number]) on 05/24/2024 6:44:53 AM RADIOLOGY RESULTS 05/23/2024 5:08 PM CDT 05/24/2024 6:44 AM CDT Pan Michelle MD ECG ORDERABLES RADIOLOGY RESULTS * (ABNORMAL) INR (05/23/2024 3:42 PM CDT) INR 1.29(H) 0.85 - 1.15 05/23/2024 4:21 PM CDT LABORATORY Blood BLOOD SPECIMEN / Unknown Venipuncture / Unknown 05/23/2024 3:42 PM CDT 05/23/2024 3:45 PM CDT Vi Coe DO LAB - BLOOD ORDE MYRANDA LABORATORY [facility] Acute Care Lab [address] [facility] Lab (1st floor, no room number) [place] [address] * CT Abdomen Pelvis w [...] 2:35 PM. MIKE LIPSCOMB MD SYSTEM ID: [id number] Narrative 05/23/2024 2:[address] ABDOMEN [...] veins which are not included in the [id number]. MUSCULOSKELETAL: Stable degenerative changes at L4-L5 with [...] veins which are not included in the [id number]. 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 No destructive lesions in the bones. IMPRESSION: 1. 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 2. Other chronic findings as discussed above. Findings were discussed with Dr. Kenna Coe at 2:35 PM. MIKE LIPSCOMB MD SYSTEM ID: [id number] Vi Coe DO IMG CT ORDERABLE S * Adult Type and Screen (05/23/2024 2:07 PM CDT) ABO/RH(D) O POS 05/23/2024 1:37 PM CDT RH BLOOD BANK Antibody Screen Negative Negative 05/23/2024 1:37 PM CDT RH BLOOD BANK SPECIMEN EXPIRATION DATE [id number] 05/23/2024 1:37 PM CDT RH BLOOD BANK Blood BLOOD SPECIMEN / Unknown Venipuncture / Unknown 05/23/2024 2:07 PM CDT 05/23/2024 2:10 PM CDT Vi Coe DO LAB - BLOOD BANK TEST ORDER Performing Organization Address City/State/[facility] Co de Phone Number BLOOD BANK [address] [place] [address] * (ABNORMAL) CBC [...] NRBCs per 100 WBC 0 <1 /100 2:00 PM CDT [facility] LABORATORY Absolute Neutrophils [...] Coe DO LAB - BLOOD ORDE MYRANDA [facility] LABORATORY [facility] [address] Lab (1st floor, no room number) [place] [address] * Lactic acid whole blood (05/23/2024 1:50 PM CDT) Pathologist [facility] [place] Lactic Acid 0.9 0.7 - 2.0 mmol/L 05/23/2024 1:57 PM CDT LABORATORY Blood BLOOD SPECIMEN / Unknown Venipuncture / Unknown 05/23/2024 1:50 PM CDT 05/23/2024 1:54 PM CDT Vi Coe DO LAB - BLOOD ORDE RABLES [facility] LABORATORY [facility] [address] Lab (1st floor, no room number) [place] [address] * Blood Culture Peripheral Blood (05/23/2024 1:50 PM CDT) Pathologist [facility] [place] Culture No Growth 05/28/2024 4:06 PM CDT [facility]U IDD LABORATORY Blood BLOOD SPECIMEN / Unknown Venipuncture / Unknown 05/23/2024 1:50 PM CDT 05/23/2024 1:53 PM CDT Vi Coe DO LAB - MICRO GENE RAL ORDERABLES [facility] LABORATORY [facility] Inf. Diseases Diag. Lab [address] [facility], [address] [place] [address] * (ABNORMAL) Comprehensive metabolic panel (05/23/2024 1:50 PM CDT) Pathologist [facility] [place] Sodium 134(L) 135 - 145 mmol/L 05/23/2024 [...] CDT Vi Coe DO LAB - BLOOD AMAIRANIE MYRANDA RH LABORATORY [facility] Acute Care Lab [address] Lab (1st floor, no room number) [place] [address], [place] * (ABNORMAL) INR (05/23/2024 1:50 PM CDT) INR >10.00(HH) 0.85 - 1.15 05/23/2024 2:30 PM CDT LABORATORY Blood BLOOD SPECIMEN / Unknown Venipuncture / Unknown 05/23/2024 1:50 PM CDT 05/23/2024 1:55 PM CDT Vi Coe DO LAB - BLOOD ROVERTO WHITMORE LABORATORY [facility] [address] [facility], no room number) [place] [address], [facility] documented in this encounter Visit Diagnoses Diagnosis [...] $Given 05/29/2024 1:43 PM CDT 667 mg dextrose 50 % [...] 1412 $Given 05/24/2024 2:58 PM CDT 4 mg pantoprazole (PROTONIX) EC tablet 40 mg 40 mg, Oral, EVERY MORNING BEFORE BREAKFAST, First dose on Padmaja 05/24/24 at 0800, DO NOT CRUSH. $Given 05/29/2024 9:39 AM CDT 40 mg $Given 05/28/2024 8:05 AM CDT 40 mg $Given 05/27/2024 9:10 AM CDT 40 mg piperacillin-tazobactam (ZOSYN) 2.25 [...] Bag 05/29/2024 9:41 PM CDT 2.25 g senna-docusate (SENOKOT-S/PERICOLACE) 8.6-50 MG [...] stools. $Given 05/26/2024 5:33 PM CDT 2 table ts sennosides (SENOKOT) tablet 2 tablet 2 tablet, [...] lock dormant line, Starting on Tue05/23/24 at 2047 $Given 05/30/2024 2:1 1 PM CDT 3 mLs $Given 05/27/2024 9:14 AM CDT 3 mLs sodium chloride 0.9% (bottle) irrigation PRN, Starting on Tue05/23/24 at 1855, Intra-procedure $Given 05/23/2024 6:55 PM CDT 1,000 mLs Operative Site/Surgi jon Site vitamin B complex with vitamin C (STRESS TAB) tablet 1 tablet 1 tablet, Oral, EVERY EVENING, First dose on Tue05/25/24 at 2000 $Given 05/29/2024 8:33 PM CDT 1 tablet $Given 05/28/2024 8:49 PM CDT 1 tablet $Given 05/27/2024 7:20 PM CDT 1 tablet warfarin ANTICOAGULANT (COUMADIN) half-tab 3.5 mg 3.5 mg, Oral, ONCE AT 6PM, On Tue05/30/24 at 1800, For 1 dose Warfarin Dose [...] dialysis., Dialysis 0932 ($Given - Provider: Abbie Rmairez RN) epoetin mauricio-epbx (RETACRIT) injection 4,000 Units [...] heparin infusion. PRE DIALYSIS RUN Dialysis, Dialysis 0933 ($Given - Provider: Abbie Ramirez RN) insulin [...] 350 mg/dL after administration of correction dose. 0806 (Not Given - Provider: Edie Pack RN [...] 350 mg/dL after administration of correction dose. 222 (Not Given - Provider: Heidi Koo RN [...] RN) 0808 (Not Given - Provider: Cecilia Crabtree, LINDA - Reason: Patient not available) piperacillin-tazobactam (ZOSYN) [...] RN) 0808 (Not Given - Provider: Cecilia Crabtree, LINDA - Reason: Patient not available)1247 ($Given - Provider: Cecilia Crabtree, LINDA) sodium chloride (PF) 0.9% PF flush 3 mL 3 mL, Intracatheter, EVERY 8 HOURS, First dose on Tue05/23/24 at 2100, to lock peripheral IV dormant line 0807 ($Given - Provider: Edie Pack RN)1419 ($Given - Provider: Edie Pack RN)2200 (Canceled Entry - Provider: Orders Generic Provider - Comment: Automatically canceled at discontinue of medication order) 0535 ($Given - Provider: Marce Leon, RN)1343 ($Given - Provider: Edie Pack, RN)2132 ($Given - Provider: Kristin Lauren, RN) 0648 ($Given - Provider: Margarette Griffin, RN)1411 (Canceled Entry - Provider: Cecilia Crabtree, LINDA) sodium chloride 0.9% BOLUS 250 mL (COMPLETED) Intravenous, 250 mL, ONCE IN DIALYSIS/CRRT, On Tue05/28/24 at 0800, For 1 dose, For patient prime during dialysis, Dialysis 0948 ($New Bag - Provider: Cintia Valadez, LINDA) sodium chloride 0.9% BOLUS 250 mL [...] Dialysis 0945 ($New Bag - Provider: Cintia Valdaez, LINDA) sodium chloride 0.9% BOLUS 300 mL (COMPLETED) Hemodialysis Machine, 300 mL, ONCE, On Tue05/30/24 at 0730, For 1 dose, For Dialyzer Prime. (In Dialyzer), Dialysis 0933 ($New Bag - Provider: Abbie Ramirez, LINDA) vitamin B complex with vitamin C (STRESS TAB) tablet 1 tablet 1 tablet, Oral, EVERY EVENING, First dose on Tue05/25/24 at 2000 2049 ($Given - Provider: Heidi Koo, LINDA) 2033 ($Given - Provider: Kristin Lauren, LINDA) warfarin [...] Dialysis 0949 ($New Bag - Provider: Cintia Valadez RN)1219 (Stopped - Provider: Cintia Valadez RN) heparin 10,000 units/10 mL infusion (DIALYSIS USE) [...] PRN, pain, with VAD insertion, Starting on Tue05/23/242046, Apply at least 30 minutes prior to [...] stools. documented in this encounter Care Teams Production Troubleshooter Relationship Specialty Start Date End Date Cornell Butt PCP - General 06/24/11 documented as of this encounter
--- OUTSIDE RECORDS SUMMARY | 2024-06-04 11:04 | XMS_ITS | Encounter Summary ---
Author Organization [facility] Address [address] [place] [address] Care Team Providers Care Embryology Professor Name Role Phone Refugio Cornell Hans Primary Care Provider [phone] Reason for Visit * Reason Comments Generalized Weakness * Auth/Cert (Routine) Specialty Diagnoses / Procedures Referred By Contac t Referred To Contact Med Surg Diagnoses Black stool Anemia, unspecified type Anemia, unspecified type Black stool 5 Medical Surgical [address] [place] [address] Referral ID Status Reason Start Date Expiration Date Visits Re quested Visits Authorized [id number] 1 1 Encounter Details Date Type Department Care Team ([facility] st Contact Info) Description 03/02/2024 1:54 PM CDT - 03/12/2024 4:36 PM CDT Hospital Encounter [facility] 5 Medical Surgical [address] [place] [address] Raúl Bernard MD [facility] [address] [place] [address] Ron Tripathi MD [address] [place] [address] Hypoglycemia (Primary Dx); Anemia, unspecified type; Black stool; Gastrointestinal hemorrhage, unspecified gastrointestinal hemorrhage type Discharge Disposition: Home-Health Care [facility] Social History Tobacco Use Types Packs/Day Years [...] file Gender Identity Male 12/05/2017 10:39 AM ONLINE MARKETING COORDINATOR Sexual Orientation Not on file documented as [...] were not included. [facility] Hospitalist Discharge Summary Date of Admission: [...] the patient was re cently hospitalized at [facility] from 02/23 to 02/25 for the [...] minutes discharging this patient. Nicolasa Luke DO [place] [address] MEDICAL SURGICAL [address] [facility] [address] Physical Exam Vital Signs: Temp: 98.4 ??F [...] US UPPER EXTREMITY VENOUS DUPLEX RIGHT LOCATION: [facility] DATE: 03/07/2024 INDICATION: Swelling, looking for [...] EXAM: XR CHEST PORT 1 VIEW LOCATION: [facility] DATE: 03/11/2024 INDICATION: Shortness of breath [...] Refills: 3 Associated Diagnoses: Mixed hyperlipidemia B Hwzqijf-B-Roazq Acid (WESCAPS PO) Take 1 capsule by [...] sent through Care Everywhere. * Colon Polyps (Armenian) documented in this encounter Medications at Time of Discharge Medication Sig Dispensed Refills Start Date End Date B Lvamzwq-L-Sfjup Acid (WESCAPS PO) Take 1 capsule by [...] 2 tablets by mouth every other day amLODIPine (NORVASC) 5 MG tablet Take 5 [...] lanceting device. 200 each 6 03/04/2024 05/23/2024 warfarin ANTICOAGULANT (COUMADIN) 5 MG tablet Take 1 tablet (5 mg) by mouth Tuesday through Tuesday, no dose on Sat and Sun 05/30/2024 documented as of this encounter Progress Notes * Lynne Cárdenas RN - 03/12/2024 3:18 PM CDT Care Management Discharge Note Discharge Date: 03/12/2024 Discharge Disposition: Home Discharge Services: FIELD BROOMER Discharge DME: None Discharge Transportation: agency, other (see comments) ([employer] [facility]) Private pay costs discussed: transportation costs Education Provided on the Discharge Plan: yes Persons Notified of Discharge Plans: [employer] [facility] Patient/Family in Agreement with the Plan: yes Handoff Referral Completed: No Additional Information: Medically ready for discharge home today with mother and Aunt. Contacted [facility] to confirm that transportation needed to be set up. She stated they use [employer] [facility] for his dialysis appointments. Called [employer] [facility] [facility] and they are unable to provide transportation on short notice and they would not have openings today. Discussed with patients Aunt and she is agreeable to having set up [facility] transport and is aware of the potential cost if insurance does not cover. Contacted [facility] and transport set up for [phone]. Aunt will be at home to accept and she confirms a ramp in the rear of the home. Lynne Cárdenas FINANCIAL ENGINEER [employer]CN Garage Attendant [facility] [phone] * Lynne Cárdenas RN - 03/12/2024 1:41 PM CDT Care Management Discharge Note Discharge Date: 03/12/2024 Discharge Disposition: Home Discharge Services: FIELD BROOMER Discharge DME: None Discharge Transportation: agency, other (see comments) ([employer] [facility]) Private pay costs discussed: Not applicable [...] reach her or aunt who is patients FIELD BROOMER. Left voice mail. Lynne Cárdenas FINANCIAL ENGINEER [employer]CN Garage Attendant [facility] [phone] * Melissa Dewey RN - 03/12/2024 12:36 [...] every 4 hours. Outpatient Dialysis at [facility]. Patient repositioned every 2 hours during the [...] Interval History: Dialysis run parameters reviewed with service electrician at patient bedside. Seen on run Resting [...] this interval not displayed. Wojciech Holman MD [facility] - Nephrology [phone] * Jose Enrique Naylor MD - 03/11/2024 10:24 AM CDT Chart reviewed. Labs and vitals reviewed. Sodium better at 126. Potassium okay. No indication for dialysis today. Noted an episode of vomiting and PAYROLL OFFICER. Chest x-ray appears clear without pulmonary congestion [...] interval not displayed. Jose Enrique Naylor MD [facility] [phone] * Nicolasa Luke DO - 03/11/2024 9:13 AM CDT [facility] Medicine [...] the patient was re cently hospitalized at [facility] from 02/23 to 02/25 for the [...] 1 unit with hgb this AM 7.8 -PAYROLL OFFICER overnight had episode of emesis, CPAP was [...] of 03/03. Appeared to be asymptomatic - PAYROLL OFFICER called for EGD 03/06 because of hypoglycemia. [...] with Mother and Aunt (who is his FIELD BROOMER) Hx of CVA Legally Blind Hypertension Hyperlipidemia [...] with help/services Nicolasa Luke DO Hospitalist Service [facility] Securely message with NeoVista (more info) Text page via [facility] Paging/Directory Physical Exam Vital Signs: Temp: 98.7 [...] Jacobsen RN - 03/11/2024 3:23 AM CDT PAYROLL OFFICER called. Patient had received 1 unit of blood earlier in the evening. Had cpap put on for the night. hospital staff pharmacist and keno writer came into the room and cpap mask was off and patient was on his left side and had vomited. Emesis was yellow in color with some food chunks. Vomit was not evident in the cpap mask. Respiratory was paged and came to see the patient at the bedside. Cross cover was also paged. PAYROLL OFFICER was then called incase patient had aspirated on vomit. Cpap was not placed back on patient after emesis episode. * Portia Domingo, RT - 03/11/2024 3:10 AM CDT Attended PAYROLL OFFICER that was called due to pt vomiting. [...] - 03/11/2024 3:07 AM CDT Responded to PAYROLL OFFICER called for an episode of emesis. Patient [...] Romero DO - 03/10/2024 10:27 AM CDT [facility] Hospitalist Progress Note Name: Herminio Victor [...] note, the patient was recently hospitalized at [facility] from 02/23 to 02/25 for the [...] for recheck this evening. Updated mother Arianna Flynn/FIELD BROOMER Thelma via phone. All questions answered. Problem [...] of 03/03. Appeared to be asymptomatic - PAYROLL OFFICER called for EGD 03/06 because of hypoglycemia. [...] with Mother and Aunt (who is his FIELD BROOMER) Hx of CVA Legally Blind Hypertension Hyperlipidemia [...] the past 24 hour(s)). Aashish Romero DO [facility] [place]ist [place] [address] Securely message with Neo[employer]ista (more info) Text page via [facility] Paging/Directory 03/10/2024 * Portia Domingo RT - [...] given low sodium Jose Enrique Naylor MD [facility] Nephrology [phone] Interval History : Seen / examined on [...] machine Does not apply Once Jose Enrique Nayolr MD pantoprazole (PROTONIX) EC tablet 40 mg [...] 5.5* CHLORIDE 86* 89* 78* CO2 23 26 25 BUN 34.6* 30.2* 55.9* ANIONGAP 15 [...] patient evaluation, reviewing documentation/test results, and order schedule clerk. Discussed with Dr. Earl. Will no longer follow. Please call with questions or change in condition. Ebony Cheek PA-C [facility] ( [facility]) * Cintia Valadez RN - 03/09/2024 [...] to treatment See Adult Hemodialysis flowsheet in [facility] for further details and post assessment. Machine [...] Cheek MD - 03/09/2024 8:28 AM CDT [facility] Medicine Progress Note - Hospitalist Service Date [...] the patient was re cently hospitalized at [facility] from 02/23 to 02/25 for the [...] of 03/03. Appeared to be asymptomatic - PAYROLL OFFICER called for EGD 03/06 because of hypoglycemia. [...] with Mother and Aunt (who is his FIELD BROOMER) Hx of CVA Legally Blind Hypertension Hyperlipidemia [...] 2-4 Days Antonino Cheek MD Hospitalist Service [facility] Securely message with Neo[employer]ista (more info) Text page via [facility] Paging/Directory Interval History Denies any symptoms [...] interval not displayed. Jose Enrique Naylor MD [facility] - Nephrology [phone] * Antonino Cheek MD - 03/08/2024 8:22 AM CDT [facility] Medicine Progress Note - Hospitalist Service Date [...] the patient was re cently hospitalized at [facility] from 02/23 to 02/25 for the [...] of 03/03. Appeared to be asymptomatic - PAYROLL OFFICER called for EGD 03/06 because of hypoglycemia. [...] with Mother and Aunt (who is his FIELD BROOMER) Hx of CVA Legally Blind Hypertension Hyperlipidemia [...] 2-4 Days Antonino Cheek MD Hospitalist Service [facility] Securely message with [employer] (more info) Text page via [facility] Paging/Directory Interval History Patient denies chest pain [...] Pulse: 81 Resp: 18 SpO2: 91 % [id number]: Nasal cannula Oxygen Delivery: 2 LPM Weight: [...] US UPPER EXTREMITY VENOUS DUPLEX RIGHT LOCATION: [facility] DATE: 03/07/2024 INDICATION: Swelling, looking for [...] the proximal to distal forearm. * Melissa Dewey, RN - 03/07/2024 4:55 PM CDT Potassium [...] checked every 4 hours. Outpatient Dialysis at [facility] Patient repositioned every 2 hours during the treatment. Pre & Post treatment report called to Anusha Lindsey RN Please note: Please remove patient dressing on AVF and AVG needle sites 24 hours after dialysis. Ifleaking occurs please apply a Band-Aid. Melissa Newton RN * Antonino Cheek MD - 03/07/2024 4:12 PM CDT [facility] Medicine Progress Note - Hospitalist Service Date [...] the patient was re cently hospitalized at [facility] from 02/23 to 02/25 for the [...] of 03/03. Appeared to be asymptomatic - PAYROLL OFFICER called for EGD 03/06 because of hypoglycemia. [...] with Mother and Aunt (who is his FIELD BROOMER) Hx of CVA Legally Blind Hypertension Hyperlipidemia [...] 2-4 Days Antonino Cheek MD Hospitalist Service [facility] Securely message with Neo[employer]ista (more info) Text page via [facility] Paging/Directory Interval History Patient denies symptoms, [...] given low sodium Jose Enrique Naylor MD [facility] - Nephrology [phone] Interval History : Seen / examined. No [...] and thrill Labs: All labs reviewed by mt Electrolytes/Renal - Recent Labs Lab Test 03/07/24 [...] 0.4 0.5 0.2 ALT -- -- 15 25 AST -- -- 28 25 PROTTOTAL -- -- 5.4* 5.5* 6.4 ALBUMIN 2.8* 2.6* 2.7* 2.9* 3.3* Iron Panel - Recent Labs Lab Test 02/26/24 0610 IRON 38* IRONSAT 28 NANNETTE 1,463* Current Medications: Current Facility-Administered Medications Medication Dose Route Frequency Provider Last Rate Last Admin - MEDICATION INSTRUCTIONS for Dialysis Patients - Does not apply See Admin Instructions Eileen Ealr MD amLODIPine (NORVASC) tablet 5 mg 5 [...] patient evaluation, reviewing documentation/test results, and order schedule clerk. Discussed with Dr. Janette Cheek PA-C [facility] ( [facility]) * Byron Camarillo RN - 03/07/2024 [...] Megan Salazar - 03/06/2024 4:20 PM CDT [facility] Progress Note MS 5 Responded to patient's room regarding overhead Adult Rapid Response CODE. Patient receiving cares. No family present. SHS not needed. SHS remains available. Rev. Ladan HameedDiv. Staff Fur Remodeler * Janine Irvin RN - 03/06/2024 3:35 [...] use as able. Jose Enrique Naylor MD [facility] Neph[facility] [phone] * Antonino Cheek MD - 03/06/2024 7:30 AM CDT [facility] Medicine [...] the patient was re cently hospitalized at [facility] from 02/23 to 02/25 for the [...] with Mother and Aunt (who is his FIELD BROOMER) Hx of CVA Legally Blind Hypertension Hyperlipidemia [...] 2-4 Days Antonino Cheek MD Hospitalist Service [facility] Securely message with Neo[employer]ista (more info) Text page via [facility] Paging/Directory Interval History Patient denies symptoms but [...] Pulse: 89 Resp: 18 SpO2: 98 % W8Lfwzgx: BiPAP/CPAP Weight: 185 lbs 13.56 oz GEN: [...] Paged to Dr. Cheek. Paul Rasmussen MD [facility] Digestive Health * Jose Enrique Naylor [...] given low sodium Jose Enrique Naylor MD [facility] Neph[facility] [phone] Interval History : Seen / examined. Appears [...] and thrill Labs: All labs reviewed by mt Electrolytes/Renal - Recent Labs Lab Test 03/05/24 [...] Cheek MD - 03/05/2024 8:33 AM CDT [facility] Medicine Progress Note - Hospitalist Service Date [...] the patient was re cently hospitalized at [facility] from 02/23 to 02/25 for the [...] with Mother and Aunt (who is his FIELD BROOMER) Hx of CVA Legally Blind Hypertension Hyperlipidemia [...] 2-4 Days Antonino Cheek MD Hospitalist Service [facility] Securely message with Neo[employer]ista (more info) Text page via [facility] Paging/Directory Interval History Patient is not significantly [...] Recheck INR tomorrow AM. Paul Rasmussen MD [facility] - Digestive Health [phone] SUBJECTIVE: Denies pain or new symptoms OBJECTIVE: [...] Romero DO - 03/04/2024 10:01 AM CDT [facility] Hospitalist Progress Note Name: Herminio Victor [...] note, the patient was recently hospitalized at [facility] from 02/23 to 02/25 for the [...] improves with food today. Updated Aunt and FIELD BROOMER Thelma via phone. All questions answered. Problem [...] with Mother and Aunt (who is his FIELD BROOMER) Hx of CVA Legally Blind Hypertension Hyperlipidemia [...] mL/hr at 03/04/24 09 Rate Verify at 03/04/24900 Current Facility-Administered Medications Medication Dose Route Frequency [...] previous visit (from the past 24 hour(s)). Aasihsh Romero DO [facility] Hospitalist [place] [address] Securely message with [employer] info) Text page via [facility] Paging/Directory 03/04/2024 * Douglas Zarate RT - 03/03/2024 10:20 PM CDT Auto CPAP 15 @ 21% was applied to the pt via the mask for NOC use. The bridge of the nose looks good and remains intact. Pt is tolerating it well. Will continue to monitor and assess the pt's current respiratory status and needs. RT Mariluz on 03/03/2024 at 10:21 PM * Aashish Romero DO - 03/03/2024 12:46 PM CDT [facility] Hospitalist Progress Note Name: Herminio Victor Provider: [...] note, the patient was recently hospitalized at [facility] from 02/23 to 02/25 for the [...] with Mother and Aunt (who is his FIELD BROOMER) Hx of CVA Legally Blind Hypertension Hyperlipidemia [...] the past 24 hour(s)). Aashish Romero DO [facility] Hospitalist [address] [facility]. [place] [phone] Securely message with Neo[employer]ista (more info) Text page via [facility] Paging/Directory 03/03/2024 * Bella Argueta RN - 03/03/2024 10:46 AM CDT DATE/TIME OF CALL RECEIVED FROM LAB: 03/03/24 at 10:47 AM LAB TEST: blood glucose LAB VALUE: 56 PROVIDER NOTIFIED?: Yes PROVIDER NAME: Dr. Delfin Romero DATE/TIME LAB VALUE REPORTED TO PROVIDER: 1030 MECHANISM OF PROVIDER NOTIFICATION: [id number]-Qw-[id number] PROVIDER RESPONSE: Administer IV Dextrose and recheck blood glucose in 15 minutes ++++++++++++++++++++++++++++++++++++ DATE/TIME OF CALL RECEIVED FROM LAB: 03/03/24 at 11:15 am LAB TEST: Blood glucose LAB VALUE: 39 PROVIDER NOTIFIED?: Yes PROVIDER NAME: Delfin Romero DATE/TIME LAB VALUE REPORTED TO PROVIDER: 03/03/24 at 11:18 am MECHANISM OF PROVIDER NOTIFICATION: [id number] PROVIDER RESPONSE: Additional IV dose of Dextrose [...] Tripathi MD - 03/02/2024 4:41 PM CDT [facility] History and Physical - Hospitalist Service [...] has memory issues and onto his primary FIELD BROOMER. Per aunt, patient always had cognitive deficits [...] 2-4 Days Ron Tripathi MD Hospitalist Service [facility] Securely message with [employer] (more info) Text page via [facility] Paging/Directory Chief Complaint Melanotic stools. History [...] ESRD (end stage renal disease) (H) dialysis T--[facility] History of staph septicemia 12/20/2015 Hyperkalemia [...] Dose Informant Patient Reported? Taking? BISACODYL PO Networking Engineer Yes No Sig: Take 10 mg [...] PM CDTAssociated Order(s): Single Lumen Midline Placement [facility] Single Lumen Midline Placement Date/Time: 03/07/2024 [...] the procedure a time out was called Sew[place] Protocol: the Joint Commission [place] Protocol was followed Preparation: Patient was prepped [...] size: 4 Fr Brand: Bard Lot number: [id number] Placement method: venipuncture, MST and ultrasound Number [...] documented in this encounter Consult Notes * Heiid Lopez RD - 03/09/2024 10:40 AM CDT [...] Lopez RDN, LD Clinical Dietitian 3rd floor/ICU: [phone] All other floors: [phone] Weekend/holiday: [phone] Office: [phone] * Job Her MD - 03/04/2024 12:38 PM CDTAssociated Order(s): NEPHROLOGY IP CONSULT RENAL CONSULTATION NOTE REFERRING MD: Aashish Romero DO REASON FOR CONSULTATION: ESRD on HD MWF HPI: 58 y.o man with ESRD, DM, HTN and on anti-coagulation for DVT, who was sent from the dialysis unit for recurrent melanotic stool. Hospitalized from 02/23-19 for melanotic stool. He received PRBC transfusion [...] file Other Topics Concern Parent/sibling w/ CABG, RI or angioplasty before 65F 55M? Not Asked Social History Narrative Not on file Social Determinants of Health Financial Resource Strain: Low Risk (06/23/2022) Received from [facility] Financial Resource Strain Difficulty of Paying Living Expenses: 3 Difficulty of Paying Living Expenses: Not on file Food Insecurity: No Food Insecurity (06/23/2022) Received from [employer] [facility] Food Insecurity Worried About Running Out of Food in the Last Year: 1 Transportation Needs: No Transportation Needs (06/23/2022) Received from [employer] [facility] Transportation Needs Lack of Transportation (Medical): 1 Physical Activity: Not on file Stress: Not on file Social Connections: Unknown (06/24/2023) Received from [employer] [facility] Social Connections Frequency of Communication with Friends and Family: Not on file Interpersonal Safety: Not on file Housing Stability: Low Risk (06/23/2022) Received from [employer] [facility] Housing Stability Unable to Pay for Housing [...] hold heparin with HD Job Her MD [facility] - Nephrology Office Pager: [phone] * Paul Rasmussen MD - 03/03/2024 3:58 PM CDTAssociated Order(s): GASTROENTEROLOGY IP CONSULT Images from the original note were not included. GASTROENTEROLOGY CONSULTATION Herminio Victor [address] [place] [phone] 58 year old male Admission Date/Time: 03/02/2024 [...] restart based on course. Paul Rasmussen MD [facility] - Digestive Health [phone] HPI: Herminio Victor is a 58 year [...] evening 12/19/17 Yes Estrella Guillen MD B Nmyinmq-A-Zpwew Acid (WESCAPS PO) Take 1 capsule by [...] Communication Assessment Patient's communication style: spoken language (Armenian or Bilingual) Hearing Difficulty or Deaf: no [...] Support: Care provided by: other (see comments) (FIELD BROOMER- aunt Thelma) Provides care for: no one, [...] Insecurity: No Food Insecurity (06/23/2022) [facility] Food Insecurity Worried About Running Out of Food in the Last Year: 1 Depression: Not at risk (05/22/2020) Received from [employer] [facility] PHQ-2 PHQ-2 Score: 0 Housing Stability: Low Risk (06/23/2022) Received from [employer] [facility] Housing Stability Unable to Pay for Housing in the Last Year: 1 Tobacco Use: Low Risk (02/25/2024) Patient History Smoking Tobacco Use: Never Smokeless Tobacco Use: Never Passive Exposure: Not on file Financial Resource Strain: Low Risk (06/23/2022) Received from [employer] [facility] Financial Resource Strain Difficulty of Paying Living Expenses: 3 Difficulty of Paying Living Expenses: Not on file Alcohol Use: Not on file Transportation Needs: No Transportation Needs (06/23/2022) Received from [employer] [facility] Transportation Needs Lack of Transportation (Medical): 1 Physical Activity: Not on file Interpersonal Safety: Not on file Stress: Not on file Social Connections: Unknown (06/24/2023) Received from [employer] [facility] Social Connections Frequency of Communication with [...] mother and aunt. His aunt is his FIELD BROOMER and has 40 hours per week.He receives assistance with all ADL's and IADL's except eating. He is legally blind so he needs assistance with ambulating, positioning and transfers too. He ambulates without any assistive devices.He receives Dialysis on MWF at [facility] in [place] per his aunt report.His transportation company [employer] in [place]. Their Phone number is [phone] and they are open M-F , 7 AM to 5 pm. CM will monitor for any discharge needs. Laura Bird RN, BSN, CM Inpatient Care Coordination [facility] [phone] documented in this encounter ED Notes * Albina Sneed RN - 03/02/2024 5:43 PM CDT [facility] ED Nurse Handoff Report ED Chief complaint: Generalized Weakness . ED Diagnosis: Final diagnoses: Anemia, unspecified type Black stool Allergies: Allergies Allergen Reactions Dihydroxyaluminum Aminoacetate Nausea GI bleeding Aspirin GI Disturbance and Rash PN: LW Reaction: unknown Code Status: Full Code Activity level - Baseline/Home: lift. Activity Level - Current: bed Lift room needed: No. Bariatric: No Head Grinder Needed: No Isolation: No. Infection: Not Applicable. [...] POS Antibody Screen Negative SPECIMEN EXPIRATION DATE [id number] PREPARE RED BLOOD CELLS (UNIT) Blood Component Type Red Blood Cells Product Code U2247Q08 Unit Status Transfused Unit Number [id number] CROSSMATCH Compatible CODING SYSTEM [id number] ISSUE DATE AND TIME [id number] UNIT ABO/RH O+ UNIT TYPE ISBT 5100 PREPARE RED BLOOD CELLS (UNIT) Blood Component Type Red Blood Cells Product Code A7439W66 Unit Status Ready for issue Unit Number [id number] CROSSMATCH Compatible CODING SYSTEM [id number] PREPARE RED BLOOD CELLS (UNIT) TRANSFUSE RED [...] March 02, 2024 at 6:24 PM I Vocera called the ED to inform them the note was read: Yes ED Nurse Name: Lilibeth D Ray, RN 5:43 PM * Malka Larios [...] time: 1:38 PM Means of arrival: Comments: [facility] * Raúl Bernard MD - 03/02/2024 [...] Component Type Red Blood Cells Product Code [id number] Unit Status Ready for issue Unit Number [id number] CROSSMATCH Compatible CODING SYSTEM [id number] PREPARE RED BLOOD CELLS (UNIT) Blood Component Type Red Blood Cells Product Code [id number] Unit Status Ready for issue Unit Number [id number] CROSSMATCH Compatible CODING SYSTEM [id number] PREPARE RED BLOOD CELLS (UNIT) ABO/RH TYPE AND SCREEN EKG ECG taken at 1400, ECG read at 1403 Sinus rhythm with 1st degree AV block Inferior infarct, age undetermined No significant change when compared to prior, dated 02/24/24. Rate 82 bpm. MO interval 210 ms. QRS duration 88 ms. [...] regarding admission. Medical Decision Making / Diagnosis [facility] Diagnoses: None MIPS None MDM Herminio [...] Disclosure: ILAVINIA, am serving as a scribe call center trainer at 2:09 PM on 03/02/2024 to [...] pt. * Pharmacy-Anticoagulation Service - Ryann Armando [facility] - 03/12/2024 2:15 PM CDT Images from the original note were not included. 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 INR Goal= 2-3. Warfarin CORPORATE TRAFFIC MANAGER Regimen: 5mg M-F Anticoagulation Dose History [...] 6:47 AM CDT Assumed care Assumed care [phone]. A&Ox3, disoriented to time and can be [...] Documentation Taken 03/11/2024 1950 by Harriett Jacobsen, rn acute Review/Management: medications reviewed Problem: Adult Inpatient Plan [...] shift note. Outcome: Progressing Flowsheets (Taken 03/11/2024 1558) Outcome Evaluation: Bp controlled w/ scheduled meds. [...] Flowsheet Documentation Taken 03/11/2024835 by Raul Carter rn acute Review/Management: medications reviewed Goal: Blood Pressure in Desired Range Outcome: Progressing Intervention: Maintain Blood Pressure Management Recent Flowsheet Documentation Taken 03/11/2024835 by Raul Carter rn acute Review/Management: medications reviewed * Plan of Care - Harriett Jacobsen RN - 03/11/2024 5:48 AM CDT Assumed care [phone]. A&Ox4, but can be confused intermittently. On RA and cpap at night. On a renal diet and needs help ordering/tray set-up. Has midline to L arm that is saline locked. Got 1 unit of blood. BG checks: 148, 120, 94. PAYROLL OFFICER called overnight, see progress notes from keno writer, MD, and respiratory. Denies pain. Plan [...] Date/Time: 03/11/2024 0241 Mechanism of Provider Notification: [employer] Purpose of Notification: FYI- Patient got 1U [...] Progressing * Pharmacy-Anticoagulation Service - Nivia Mahan [facility] - 03/10/2024 12:35 PM CDT Clinical Pharmacy - Warfarin Dosing Consult Pharmacy has been consulted to manage this patient???s warfarin therapy. Indication: DVT/ PE Treatment Therapy Goal: INR 2-3 Warfarin Prior to Admission: Yes Warfarin CORPORATE TRAFFIC MANAGER Regimen: 5mg M-F Dose Comments: 5mg [...] shift note. Outcome: Progressing Flowsheets (Taken 03/09/2024 0431) Outcome Evaluation: Hgb 7.6 with recheck Goal: [...] Recent Flowsheet Documentation Taken 03/09/2024 1800 by Mnan Clark RN Safety Promotion/Fall Prevention: safety round/check completed treat reversible contributory factors room near nurse's station room door open lighting adjusted increase visualization of patient assistive device/personal items within reach Intervention: Prevent Skin Injury Recent Flowsheet Documentation Taken 03/09/2024 1800 by Mann Clark RN Body Position: weight shifting Intervention: Prevent and Manage VTE (Venous Thromboembolism) Risk Recent Flowsheet Documentation Taken 03/09/2024 1800 by Mnan Clark RN VTE Prevention/Management: SCDs (sequential compression [...] Thromboembolism) Risk Recent Flowsheet Documentation Taken 03/08/2024 08 by Maeve Shipley RN VTE Prevention/Management: SCDs [...] tablet 5 mg 5 mg Oral Daily Elieen Earl MD 5 mg at 03/08/24 08 atorvastatin (LIPITOR) tablet 20 mg 20 mg Oral QPM Eileen Earl MD 20 mg at 03/07/242014 calcium acetate (PHOSLO) capsule 667 mg 667 mg Oral TID w/meals Eileen Earl MD 667 mg at 05/30/24 0822 calcium acetate (PHOSLO) capsule 667 mg [...] 2 tablet Oral Every Other Day Eileen Ealr MD 2 tabletat 03/04/24 0900 sodium chloride [...] ESRD (end stage renal disease) (H) dialysis [facility] History of staph septicemia 12/20/2015 Hyperkalemia [...] 30 tablet 3 03/01/2024 at PM B Jrxfycw-H-Wsfhj Acid (WESCAPS PO) Take 1 capsule by [...] mL 3 mL Intracatheter q1 min prn Eilene Earl MD sodium chloride (PF) 0.9% PF [...] Recent Flowsheet Documentation Taken 03/07/20242029 by Cynthia Zazueta, LINDA Body Position: position changed independently Goal: Optimal [...] Significant swelling to SRIDHAR Mohamud MD notified, RUE US ordered, yet to be [...] shift note. Outcome: Progressing Flowsheets (Taken 03/07/2024 9573) Outcome Evaluation: No BM this shift. VSS, [...] and complete assessments, please see documentation flowsheets. [id number] Pertinent assessments:Pt disoriented to time & situation [...] of 34 at upon arrival from PACU, PAYROLL OFFICER called. PRN D50% 50ml given via IV. [...] Monitor labs & BG, Monitor stools, Dialysis -W-, GI, Nephrology following Plan of Care Reviewed [...] and complete assessments, please see documentation flowsheets. [id number] Pertinent assessments:Pt disoriented to time. CPAP in [...] 03/06/2024616 by Byron Camarillo RN Outcome: Progressing 03/06/2024 06 by Byron Camarillo RN Outcome: Progressing Goal: [...] and complete assessments, please see documentation flowsheets. [id number] Pertinent assessments: Pt disoriented to time. CPAP [...] shift note. Outcome: Progressing Flowsheets (Taken 03/04/2024 7439) Outcome Evaluation: BG stable Plan of Care [...] carb diet Treatment Plan: clears tomorrow and MASTICATOR at midnight for colonoscopy and EGD, monitor [...] shift note. Outcome: Progressing Flowsheets (Taken 03/04/2024 1909) Outcome Evaluation: BG stable, tolerating diet Plan [...] Flowsheet Documentation Taken 03/04/2024399 by Zulema Parr, LINDA Hypoglycemia Management: (IV dextrose continued) blood glucose [...] - 03/03/2024 3:08 PM CDT Cared for 3006-0257 Pt Alert to self (cognitive delay; visually [...] the update. Information Source(s): Patient's Aunt, Thelma, [employer] via phone Pertinent Information: None Changes made to CORPORATE TRAFFIC MANAGER medication list: Added: Senna Deleted: Bisacodyl, Lisinopril (Thelma states she was told to stop giving this last week) Changed: None Allergies reviewed with patient and updates made in EHR: no Medication History Completed By: Quang Gee RPH 03/02/2024 5:32 PM CORPORATE TRAFFIC MANAGER Med List Medication Sig Last Dose amLODIPine (NORVASC) 5 MG tablet Take 5 mg by mouth daily 03/02/2024 at AM atorvastatin (LIPITOR) 20 MG tablet Take 1 tablet (20 mg) by mouth every evening 03/01/2024 at PM B Xzbhmtf-O-Tydko Acid (WESCAPS PO) Take 1 capsule by [...] Description 07/05/2024 1:15 PM CDT Office Visit [address] [address] Lizandro Barron MD [address] [id number] documented as of this encounter Procedures Procedure [...] Glucose by meter (03/12/2024 12:00 PM CDT) [facility] GLUCOSE BY METER POCT 92 70 - 99 mg/dL 03/12/2024 12:10 PM CDT RH LABORATORY POC Blood, Capillary BLOOD SPECIMEN / Unknown 03/12/2024 12:00 PM CDT 03/12/2024 12:10 PM CDT Ron DEAN - DAVID POCT RH LABORATORY [facility] Acute Care Lab [address] Lab (1st floor, no room number) [place] [address] * Glucose by meter (03/12/2024 7:51 AM CDT) GLUCOSE BY METER POCT 92 70 - 99 mg/dL 03/12/2024 7:58 AM CDT LABORATORY POC Blood, Capillary BLOOD SPECIMEN / Unknown 03/12/2024 7:51 AM CDT 03/12/2024 7:58 AM CDT Ron Tripathi MD LAB - BEAKER POCT LABORATORY [facility] Lab [address] Lab (1st floor, no room number) [place] [phone] * Glucose (03/12/2024 6:06 AM CDT) Glucose 77 70 - 99 mg/dL 03/12/2024 6:35 AM CDT RH LABORATORY Blood STRUCTURE OF RIGHT UPPER LIMB / Unknown Venipuncture / Unknown 03/12/2024 6:06 AM CDT 03/12/2024 6:10 AM CDT Ron Tripathi MD LAB - BLOOD ORDERABL ES Performing Organization Address [facility]/ZIP Co de Phone Number [facility] Lab [address] Lab (1st floor, no room number) [place] [phone] * (ABNORMAL) Hemoglobin (03/12/2024 6:06 AM CDT) Hemoglobin 8.1(L) 13.3 - 17.7 g/dL 03/12/2024 6:14 AM CDT RH LABORATORY Blood STRUCTURE OF RIGHT UPPER LIMB / Unknown Venipuncture / Unknown 03/12/2024 6:06 AM CDT 03/12/2024 6:10 AM CDT Aashish Romero DO LAB - BLOOD ORDER NADIA [facility] [address] Lab (1st floor, no room number) [place] [address], [facility] * (ABNORMAL) Renal panel (03/12/2024 6:06 [...] MD LAB - BLOOD ORDERA BLES LABORATORY [facility] Acute Care Lab [address] Lab (1st floor, no room number) [place] [phone] [place] [address] * (ABNORMAL) INR (03/12/2024 6:06 AM CDT) INR 1.20(H) 0.85 - 1.15 03/12/2024 6:25 AM CDT RH LABORATORY Blood STRUCTURE OF RIGHT UPPER LIMB / Unknown Venipuncture / Unknown 03/12/2024 6:06 AM CDT 03/12/2024 6:10 AM CDT Eileen Earl MD LAB - BLOOD ORDERA BLES Performing Organization Address [facility]/ZIP Co de Phone Number [facility] Lab [address] Lab (1st floor, no room number) [place] [phone] [place] [address] * (ABNORMAL) Glucose by meter (03/12/2024 1:55 AM CDT) GLUCOSE BY METER POCT 107(H) 70 - 99 mg/dL 03/12/2024 2:01 AM CDT LABORATORY POC Blood, Capillary BLOOD SPECIMEN / Unknown 03/12/2024 1:55 AM CDT 03/12/2024 2:01 AM CDT Ron Tripathi MD LAB - BEAKER POCT LABORATORY POC [facility] Lab [address] Lab (1st floor, no room number) [address] [place] [address] * (ABNORMAL) Glucose by meter (03/11/2024 9:11 PM CDT) GLUCOSE BY METER POCT 132(H) 70 - 99 mg/dL 03/11/2024 9:18 PM CDT RH LABORATORY POC Blood, Capillary BLOOD SPECIMEN / Unknown 03/11/2024 9:11 PM CDT 03/11/2024 9:18 PM CDT Ron Tripathi MD LAB - BEAKER POCT Performing Organization Address City/[facility]/ZIP Co de Phone Number LABORATORY [facility] Lab [address] Lab (1st floor, no room number) [place] [address], [facility] * (ABNORMAL) Hemoglobin (03/11/2024 6:10 PM CDT) Hemoglobin 8.8(L) 13.3 - 17.7 g/dL 03/11/2024 6:22 PM CDT LABORATORY Blood STRUCTURE OF RIGHT UPPER LIMB / Unknown Venipuncture / Unknown 03/11/2024 6:10 PM CDT 03/11/2024 6:20 PM CDT Aashish Romero DO LAB - BLOOD ORDER NADIA Performing Organization Address [facility]/ZIP Co de Phone Number [facility] Lab [address] Lab (1st floor, no room number) [place] [address], [facility] * (ABNORMAL) Glucose by meter (03/11/2024 5:31 PM CDT) GLUCOSE BY METER POCT 144(H) 70 - 99 mg/dL 03/11/2024 5:39 PM CDT LABORATORY POC Blood, Capillary BLOOD SPECIMEN / Unknown 03/11/2024 5:31 PM CDT 03/11/2024 5:39 PM CDT Ron DEAN - BEXIANG POCT Performing Organization Address City/[facility]/ZIP Co de Phone Number LABORATORY [facility] Lab [address] Lab (1st floor, no room number) [place] [address], [facility] * (ABNORMAL) Glucose by meter (03/11/2024 11:47 AM CDT) GLUCOSE BY METER POCT 117(H) 70 - 99 mg/dL 03/11/2024 11:54 AM CDT RH LABORATORY POC Blood, Capillary BLOOD SPECIMEN / Unknown 03/11/2024 11:47 AM CDT 03/11/2024 11:54 AM CDT Narrative Authorizing Provider Result Lauren Tripathi MD LAB - BEAKER POCT RH LABORATORY [facility] Lab [address] Lab (1st floor, no room number) [address] * Glucose by meter (03/11/2024 7:36 AM CDT) GLUCOSE BY METER POCT 81 70 - 99 mg/dL 03/11/2024 7:45 AM CDT LABORATORY POC Blood, Capillary BLOOD SPECIMEN / Unknown 03/11/2024 7:36 AM CDT 03/11/2024 7:45 AM CDT Narrative Authorizing Provider Result Lauren Tripathi MD LAB - BEAKER POCT Performing Organization Address [facility]/ZIP Co de Phone Number LABORATORY [facility] Lab [address] Lab (1st floor, no room number) [address] * (ABNORMAL) Renal panel (03/11/2024 7:03 AM [...] - 5.3 mmol/L 03/11/2024 7:33 AM CDT RH LABORATORY Chloride 89(L) 98 [...] Earl MD LAB - BLOOD ORDERA BLES [facility] [address] Lab (1st floor, no room number) [place] [address] * INR (03/11/2024 7:03 AM CDT) INR 1.11 0.85 - 1.15 03/11/2024 7:31 AM CDT RH LABORATORY Blood STRUCTURE OF RIGHT UPPER LIMB / Unknown Venipuncture / Unknown 03/11/2024 7:03 AM CDT 03/11/2024 7:10 AM CDT Eileen Earl MD LAB - BLOOD ORDERA BLES [facility] Acute Care Lab [address] Lab (1st floor, no room number) [place] [address] * (ABNORMAL) CBC with platelets (03/11/2024 [...] LAB - BLOOD ORDER NADIA RH LABORATORY [facility] Lab [address] Lab (1st floor, no room number) [place] [address], [facility] * XR Chest Port 1 View (03/11/2024 3:25 AM CDT) Anatomical Region Laterality Modality Chest Digital Radiogra phy 03/11/2024 3:25 AM CDT Impressions 03/11/2024 3:30 AM CDT IMPRESSION: Normal heart size and pulmonary vascularity. Lungs clear. No pneumothorax. Minimal fluid or thickening along the right fissure. Narrative 03/11/2024 3:30 AM CDT EXAM: XR CHEST PORT 1 VIEW LOCATION: [facility] DATE: 03/11/2024 INDICATION: Shortness of breath COMPARISON: None. Procedure Note David Díaz MD - 03/11/2024 EXAM: XR CHEST PORT 1 VIEW LOCATION: [facility] DATE: 03/11/2024 INDICATION: Shortness of breath [...] CDT Ron DEAN - DAVID POCT LABORATORY [facility] Acute Care Lab [address] Lab (1st floor, no room number) [place] [address] * (ABNORMAL) Glucose by meter (03/11/2024 1:57 AM CDT) GLUCOSE BY METER POCT 120(H) 70 - 99 mg/dL 03/11/2024 2:04 AM CDT LABORATORY POC Blood, Capillary BLOOD SPECIMEN / Unknown 03/11/2024 1:57 AM CDT 03/11/2024 2:04 AM CDT Ron DEAN - BEXIANG POCT LABORATORY [facility] Acute Care Lab [address] Lab (1st floor, no room number) [place] [address] * CONDITIONAL Transfuse red blood cells [...] MD LAB - BEAKER POCT LABORATORY POC [facility] Acute [facility] Lab [address] [facility] Lab (1st floor, no room number) [place] [phone] * Adult Type and Screen (03/10/2024 6:53 PM CDT) ABO/RH(D) O POS 03/10/2024 6:44 PM CDT RH BLOOD BANK Antibody Screen Negative Negative 03/10/2024 6:44 PM CDT RH BLOOD BANK SPECIMEN EXPIRATION DATE [id number] 03/10/2024 6:44 PM CDT RH BLOOD BANK Blood STRUCTURE OF RIGHT UPPER LIMB / Unknown Venipuncture / Unknown 03/10/2024 6:53 PM CDT 03/10/2024 6:57 PM CDT Antonino Cheek MD LAB - BLOOD BANK SHANNON T ORDER BLOOD BANK [address] [place] [address] * CONDITIONAL Prepare red blood cells (unit) (03/10/2024 6:37 PM CDT) Blood Component Type Red Blood Cells RH BLOOD BANK Product Code [id number] RH BLOO D BANK Unit Status Transfused RH BLOO D BANK Unit Number [id number] RH B LOOD BANK CROSSMATCH Compatible RH BLOOD BANK CODING SYSTEM [id number] RH BLO OD BANK ISSUE DATE AND TIME [id number] RH BLOOD BANK UNIT ABO/RH O+ RH BLOOD BANK UNIT TYPE ISBT 5100 RH BL OOD BANK 03/10/2024 6:37 PM CDT Eileen Earl MD BLOOD BANK PRODUCT ORDERABLES RH BLOOD BANK [address] [place] [address], [facility] * (ABNORMAL) Hemoglobin (03/10/2024 6:00 PM CDT) Hemoglobin 7.0(L) 13.3 - 17.7 g/dL 03/10/2024 6:09 PM CDT RH LABORATORY Blood STRUCTURE OF RIGHT UPPER LIMB / Unknown Venipuncture / Unknown 03/10/2024 6:00 PM CDT 03/10/2024 6:07 PM CDT Aashish Romero DO LAB - BLOOD ORDER NADIA Performing Organization Address [facility]/ZIP Co de Phone Number [facility] Acute Care Lab [address] Lab (1st floor, no room number) [place] [address], [facility] * (ABNORMAL) Glucose by meter (03/10/2024 4:49 PM CDT) GLUCOSE BY METER POCT 208(H) 70 - 99 mg/dL 03/10/2024 5:05 PM CDT RH LABORATORY POC Blood, Capillary BLOOD SPECIMEN / Unknown 03/10/2024 4:49 PM CDT 03/10/2024 5:05 PM CDT Ron Tripathi MD LAB - BEAKER POCT LABORATORY [facility] Acute Care Lab [address] Lab (1st floor, no room number) [address] * Glucose by meter (03/10/2024 2:35 PM CDT) GLUCOSE BY METER POCT 98 70 - 99 mg/dL 03/10/2024 2:43 PM CDT RH LABORATORY POC Blood, Capillary BLOOD SPECIMEN / Unknown 03/10/2024 2:35 PM CDT 03/10/2024 2:43 PM CDT Narrative Authorizing Provider Result Lauren Tripathi MD LAB - BEAKER POCT LABORATORY [facility] Lab [address] Lab (1st floor, no room number) [address] * Glucose by meter (03/10/2024 1:28 PM CDT) GLUCOSE BY METER POCT 94 70 - 99 mg/dL 03/10/2024 1:37 PM CDT RH LABORATORY POC Blood, Capillary BLOOD SPECIMEN / Unknown 03/10/2024 1:28 PM CDT 03/10/2024 1:37 PM CDT Narrative Authorizing Provider Result Lauren Tripathi MD LAB - BEAKER POCT LABORATORY [facility] Lab [address] Lab (1st floor, no room number) [address] * Glucose by meter (03/10/2024 12:35 PM CDT) GLUCOSE BY METER POCT 92 70 - 99 mg/dL 03/10/2024 12:50 PM CDT RH LABORATORY POC Blood, Capillary BLOOD SPECIMEN / Unknown 03/10/2024 12:35 PM CDT 03/10/2024 12:50 PM CDT Narrative Authorizing Provider Result Lauren Tripathi MD LAB - BEAKER POCT LABORATORY [facility] Acute Care Lab [address] Lab (1st floor, no room number) [address] * (ABNORMAL) Glucose by meter (03/10/2024 11:28 AM CDT) GLUCOSE BY METER POCT 102(H) 70 - 99 mg/dL 03/10/2024 11:35 AM CDT RH LABORATORY POC Blood, Capillary BLOOD SPECIMEN / Unknown 03/10/2024 11:28 AM CDT 03/10/2024 11:35 AM CDT Ron Tripathi MD LAB - BEAKER POCT Performing Organization Address City/[facility]/ZIP Co de Phone Number LABORATORY [facility] Lab [address] Lab (1st floor, no room number) [address] * (ABNORMAL) Glucose by meter (03/10/2024 10:35 AM CDT) GLUCOSE BY METER POCT 133(H) 70 - 99 mg/dL 03/10/2024 10:42 AM CDT LABORATORY POC Blood, Capillary BLOOD SPECIMEN / Unknown 03/10/2024 10:35 AM CDT 03/10/2024 10:42 AM CDT Ron DEAN - DAVID POCT Performing Organization Address [facility]/ZIP Co de Phone Number LABORATORY [facility] Lab [address] Lab (1st floor, no room number) [address] * (ABNORMAL) Glucose by meter (03/10/2024 8:32 AM CDT) GLUCOSE BY METER POCT 105(H) 70 - 99 mg/dL 03/10/2024 8:45 AM CDT RH LABORATORY POC Blood, Capillary BLOOD SPECIMEN / Unknown 03/10/2024 8:32 AM CDT 03/10/2024 8:45 AM CDT Ron DEAN - DAVID POCT RH LABORATORY POC [facility] Lab [address] Lab (1st floor, no room number) [place] [address] * (ABNORMAL) Hemoglobin (03/10/2024 7:46 AM CDT) Hemoglobin 7.0(L) 13.3 - 17.7 g/dL 03/10/2024 7:55 AM CDT LABORATORY Blood STRUCTURE OF RIGHT UPPER LIMB / Unknown Venipuncture / Unknown 03/10/2024 7:46 AM CDT 03/10/2024 7:50 AM CDT Ron Tripathi MD LAB - BLOOD ORDERABL ES Performing Organization Address [facility]/ZIP Co de Phone Number RH LABORATORY [facility] Lab [address] Lab (1st floor, no room number) [place] [address] * (ABNORMAL) Renal panel (03/10/2024 7:46 [...] - 23.0 mg/dL 03/10/2024 8:10 AM CDT RH LABORATORY Creatinine 5.54(H) 0.67 - 1.17 mg/dL 03/10/2024 8:10 AM CDT RH LABORATORY GFR Estimate 11(L) >60 mL/min/1. 73m2 03/10/2024 8:10 AM CDT RH LABORATORY Calcium 7.4(L) 8.8 - 10.2 mg/dL 03/10/2024 8:10 AM CDT RH LABORATORY Albumin 2.6(L) 3.5 - 5.2 g/dL 03/10/2024 8:10 AM CDT RH LABORATORY Phosphorus 3.0 2.5 - 4.5 mg/dL 03/10/2024 8:10 AM CDT RH LABORATORY Blood STRUCTURE OF RIGHT UPPER LIMB / Unknown Venipuncture / Unknown 03/10/2024 7:46 AM CDT 03/10/2024 7:50 AM CDT Eileen Earl MD LAB - BLOOD ORDERA BLES [facility] Lab [address] Lab (1st floor, no room number) [place] [phone] [place] [address] * (ABNORMAL) INR (03/10/2024 7:46 AM CDT) INR 1.18(H) 0.85 - 1.15 03/10/2024 8:03 AM CDT LABORATORY Blood STRUCTURE OF RIGHT UPPER LIMB / Unknown Venipuncture / Unknown 03/10/2024 7:46 AM CDT 03/10/2024 7:50 AM CDT Eileen Earl MD LAB - BLOOD ORDERA BLES [facility] Lab [address] Lab (1st floor, no room number) [place] [address] * (ABNORMAL) Glucose by meter (03/10/2024 3:38 AM CDT) GLUCOSE BY METER POCT 112(H) 70 - 99 mg/dL 03/10/2024 3:44 AM CDT RH LABORATORY POC Blood, Capillary BLOOD SPECIMEN / Unknown 03/10/2024 3:38 AM CDT 03/10/2024 3:44 AM CDT Narrative Authorizing Provider Result Lauren DEAN - BEAKER POCT Performing Organization Address [facility]/ZIP Co de Phone Number LABORATORY [facility] Lab [address] Lab (1st floor, no room number) [place] [address], [place] * Glucose by meter (03/10/2024 12:05 AM CDT) GLUCOSE BY METER POCT 97 70 - 99 mg/dL 03/10/2024 12:11 AM CDT LABORATORY POC Blood, Capillary BLOOD SPECIMEN / Unknown 03/10/2024 12:05 AM CDT 03/10/2024 12:11 AM CDT Narrative Authorizing Provider Result Lauren DEAN - BEAKER POCT Performing Organization Address [facility]/ZIP Co de Phone Number LABORATORY [facility] Lab [address] Lab (1st floor, no room number) [place] [phone], [facility] * (ABNORMAL) Hemoglobin (03/09/2024 11:50 PM CDT) Hemoglobin 7.5(L) 13.3 - 17.7 g/dL 03/09/2024 11:57 PM CDT LABORATORY Blood STRUCTURE OF RIGHT HAND / Unknown Venipuncture / Unknown 03/09/2024 11:50 PM CDT 03/09/2024 11:53 PM CDT Narrative Authorizing Provider Result Lauren Tripathi MD LAB - BLOOD ORDERABL ES Performing Organization Address [facility]/ZIP Co de Phone Number [facility] Lab [address] Lab (1st floor, no room number) [place] [phone], [facility] * (ABNORMAL) Glucose by meter (03/09/2024 8:25 PM CDT) GLUCOSE BY METER POCT 159(H) 70 - 99 mg/dL 03/09/2024 8:32 PM CDT RH LABORATORY POC Blood, Capillary BLOOD SPECIMEN / Unknown 03/09/2024 8:25 PM CDT 03/09/2024 8:32 PM CDT Ron Tripathi MD LAB - BEAKER POCT LABORATORY [facility] [address] Lab (1st floor, no room number) [place] [address], [facility] * (ABNORMAL) Hemoglobin (03/09/2024 7:13 PM CDT) Hemoglobin 7.6(L) 13.3 - 17.7 g/dL 03/09/2024 7:27 PM CDT RH LABORATORY Blood VENOUS LINE / Unknown Venipuncture / Unknown 03/09/2024 7:13 PM CDT 03/09/2024 7:25 PM CDT Narrative Authorizing Provider Result Lauren Tripathi MD LAB - BLOOD ORDERABL ES Performing Organization Address [facility]/ZIP Co de Phone Number [facility] Lab [address] Lab (1st floor, no room number) [place] [address], [facility] * (ABNORMAL) Glucose by meter (03/09/2024 4:12 PM CDT) GLUCOSE BY METER POCT 147(H) 70 - 99 mg/dL 03/09/2024 4:19 PM CDT LABORATORY POC Blood, Capillary BLOOD SPECIMEN / Unknown 03/09/2024 4:12 PM CDT 03/09/2024 4:19 PM CDT Narrative Authorizing Provider Result Lauren DEAN - BEAKER POCT Performing Organization Address City/[facility] Systems/ZIP Co de Phone Number LABORATORY [facility] [address] Lab (1st floor, no room number) [place] [address], [facility] * (ABNORMAL) Hemoglobin (03/09/2024 2:16 PM CDT) Hemoglobin 7.6(L) 13.3 - 17.7 g/dL 03/09/2024 2:43 PM CDT LABORATORY Blood VASCULAR LINE / Unknown Venipuncture / Unknown 03/09/2024 2:16 PM CDT 03/09/2024 2:29 PM CDT Ron Tripathi MD LAB - BLOOD ORDERABL ES LABORATORY [facility] [address] Lab (1st floor, no room number) [place] [phone] [place] [address] * (ABNORMAL) Glucose by meter (03/09/2024 1:35 PM CDT) GLUCOSE BY METER POCT 150(H) 70 - 99 mg/dL 03/09/2024 1:42 PM CDT LABORATORY POC Blood, Capillary BLOOD SPECIMEN / Unknown 03/09/2024 1:35 PM CDT 03/09/2024 1:42 PM CDT Ron Tripathi MD LAB - BEAKER POCT LABORATORY POC [facility] [address] Lab (1st floor, no room number) [place] [phone] * Morphology Tracking (03/09/2024 9:12 AM CDT) Blood VENOUS LINE / Unknown Venipuncture / Unknown 03/09/2024 9:12 AM CDT 03/09/2024 9:26 AM CDT Antonino Cheek MD LAB - BLOOD ORDERABL ES LABORATORY [facility] [address] Lab (1st floor, no room number) [place] [address] * (ABNORMAL) Reticulocyte count (03/09/2024 9:12 AM CDT) % Reticulocyte 2.8(H) 0.5 - 2.0 % 03/09/2024 9:33 AM CDT RH LABORATORY Absolute Reticulocyte 0.072 0.025 - 0.095 10e6/uL 03/09/2024 9:33 AM CDT RH LABORATORY Blood VENOUS LINE / Unknown Venipuncture / Unknown 03/09/2024 9:12 AM CDT 03/09/2024 9:26 AM CDT Antonino Cheek MD LAB - BLOOD ORDERABL ES RH LABORATORY [facility] [address] Lab (1st floor, no room number) [place] [address] * (ABNORMAL) CBC with platelets [...] - 0.7 10e3/uL 03/09/2024 9:33 AM CDT RH LABORATORY Absolute Basophils 0.0 0.0 - 0.2 10e3/uL 03/09/2024 9:33 AM CDT RH LABORATORY Absolute Immature Granulocytes 0.1 <=0.4 10e3/uL 03/09/2024 9:33 AM CDT RH LABORATORY Absolute NRBCs 0.0 10e3/uL 03/09/2024 9:33 AM CDT RH LABORATORY Blood VENOUS LINE / Unknown Venipuncture / Unknown 03/09/2024 9:12 AM CDT 03/09/2024 9:26 AM CDT Antonino Cheek MD LAB - BLOOD ORDERABL ES LABORATORY [facility] [address] Lab (1st floor, no room number) [place] [address], [facility] * Bld morphology pathology review (03/09/2024 9:12 AM CDT) Final Diagnosis Peripheral blood for morphology: -Moderate normochromic, normocytic anemia without evidence of red cell regeneration; no morphologic or laboratory features of hemolysis detected -Slight mature neutrophilia without morphologic abnormalities 03/13/2024 10:17 AM [facility] LAB Comment Review of recent laboratory data notes normal LDH and haptoglobin. The history of GI bleeding and end-stage renal disease on hemodialysis are noted. Both conditions would contribute to the anemia present. 03/13/2024 10:17 AM [facility] LAB Clinical Information Looking for signs of hemolysis 03/13/2024 10:17 AM [facility] LAB Peripheral Smear ERYTHROCYTES: The hemoglobin [...] than 50: Marked thrombocytopenia 03/13/2024 10:17 AM [facility] PATH[facility] LAB Performing Labs The technical component of this testing was completed at [facility] 03/13/2024 10:17 AM CDT [facility] PATHOLOGY LAB Blood VENOUS LINE / [...] Antonino Cheek MD LAB - BEAKER AP [facility] PATHOLOGY LAB [facility] Pathology Lab [address]st Floor, [address] [place] [address] * Haptoglobin (03/09/2024 9:12 AM CDT) Haptoglobin 127 30 - 200 mg/dL 03/10/2024 1:23 AM CDT [facility] LABORATORY Blood VENOUS LINE / Unknown Venipuncture / Unknown 03/09/2024 9:12 AM CDT 03/09/2024 9:26 AM CDT Antonino Cheek MD LAB - BLOOD ORDERABL ES [facility] LABORATORY [facility] [address], [address] [place] [address] * Bilirubin Direct and Total (03/09/2024 9:12 AM CDT) Bilirubin Direct 0.22 0.00 - 0.30 mg/dL 03/09/2024 9:59 AM CDT RH LABORATORY Bilirubin Total 0.5 <=1.2 mg/dL 03/09/2024 9:59 AM CDT RH LABORATORY Blood VENOUS LINE / Unknown Venipuncture / Unknown 03/09/2024 9:12 AM CDT 03/09/2024 9:26 AM CDT Antonino Cheek MD LAB - BLOOD ORDERABL ES Performing Organization Address [facility]/ZIP Co de Phone Number [facility] Lab [address] Lab (1st floor, no room number) [address] [place] [address] * Lactate Dehydrogenase (03/09/2024 9:12 AM CDT) Lactate Dehydrogenase 226 0 - 250 U/L 03/09/2024 9:59 AM CDT LABORATORY Blood VENOUS LINE / Unknown Venipuncture / Unknown 03/09/2024 9:12 AM CDT 03/09/2024 9:26 AM CDT Antonino Cheek MD LAB - BLOOD ORDERABL ES Performing Organization Address [facility]/ZIP Co de Phone Number [facility] Lab [address] Lab (1st floor, no room number) [address] * INR (03/09/2024 9:12 AM CDT) INR 1.13 0.85 - 1.15 03/09/2024 9:41 AM CDT LABORATORY Blood VENOUS LINE / Unknown Venipuncture / Unknown 03/09/2024 9:12 AM CDT 03/09/2024 9:26 AM CDT Eileen Earl MD LAB - BLOOD ORDERA BLES [facility] Lab [address] Lab (1st floor, no room number) [address] [place] [address] * Glucose by meter (03/09/2024 7:55 AM CDT) GLUCOSE BY METER POCT 91 70 - 99 mg/dL 03/09/2024 8:04 AM CDT RH LABORATORY POC Comment:Dr/RN Notified Blood, Capillary BLOOD SPECIMEN / Unknown 03/09/2024 7:55 AM CDT 03/09/2024 8:04 AM CDT [facility] Lab [address] Lab (1st floor, no room number) [place] [address], [facility] * (ABNORMAL) Renal panel (03/09/2024 5:49 AM [...] - 5.2 g/dL 03/09/2024 6:18 AM CDT RH LABORATORY Phosphorus 3.9 2.5 - 4.5 mg/dL 03/09/2024 6:18 AM CDT RH LABORATORY Blood VENOUS LINE / Unknown Venipuncture / Unknown 03/09/2024 5:49 AM CDT 03/09/2024 5:57 AM CDT Eileen Earl MD LAB - BLOOD ORDERA BLES LABORATORY [facility] [address] Lab (1st floor, no room number) [place] [address] * (ABNORMAL) Hemoglobin (03/09/2024 5:49 AM CDT) Hemoglobin 7.5(L) 13.3 - 17.7 g/dL 03/09/2024 6:00 AM CDT RH LABORATORY Blood VENOUS LINE / Unknown Venipuncture / Unknown 03/09/2024 5:49 AM CDT 03/09/2024 5:57 AM CDT Ron Tripathi MD LAB - BLOOD ORDERABL ES Performing Organization Address [facility]/ZIP Co de Phone Number LABORATORY [facility] [address] Lab (1st floor, no room number) [place] [address], [facility] * (ABNORMAL) Glucose by meter (03/09/2024 4:31 AM CDT) GLUCOSE BY METER POCT 112(H) 70 - 99 mg/dL 03/09/2024 4:37 AM CDT LABORATORY POC Blood, Capillary BLOOD SPECIMEN / Unknown 03/09/2024 4:31 AM CDT 03/09/2024 4:37 AM CDT Ron Tripathi MD LAB - BEAKER POCT Performing Organization Address [facility]/ZIP Co de Phone Number LABORATORY POC [facility] [address] Lab (1st floor, no room number) [place] [address], [facility] * (ABNORMAL) Glucose by meter (03/09/2024 12:26 AM CDT) GLUCOSE BY METER POCT 124(H) 70 - 99 mg/dL 03/09/2024 12:32 AM CDT LABORATORY POC Blood, Capillary BLOOD SPECIMEN / Unknown 03/09/2024 12:26 AM CDT 03/09/2024 12:32 AM CDT Ron Tripathi MD LAB - BEAKER POCT LABORATORY [facility] [address] Lab (1st floor, no room number) [place] [phone] [place] [address] * (ABNORMAL) Hemoglobin (03/08/2024 10:35 PM CDT) Hemoglobin 7.5(L) 13.3 - 17.7 g/dL 03/08/2024 10:48 PM CDT LABORATORY Blood BLOOD SPECIMEN / Unknown Venipuncture / Unknown 03/08/2024 10:35 PM CDT 03/08/2024 10:45 PM CDT Antonino Cheek MD LAB - BLOOD ORDERABL ES [facility] Lab [address] Lab (1st floor, no room number) [place] [phone], [facility] * (ABNORMAL) Glucose by meter (03/08/2024 10:09 PM CDT) GLUCOSE BY METER POCT 116(H) 70 - 99 mg/dL 03/08/2024 10:15 PM CDT LABORATORY POC Blood, Capillary BLOOD SPECIMEN / Unknown 03/08/2024 10:09 PM CDT 03/08/2024 10:15 PM CDT Ron DEAN - BEAKER POCT LABORATORY POC [facility] Lab [address] Lab (1st floor, no room number) [place] [address], [place] * (ABNORMAL) Glucose by meter (03/08/2024 8:11 PM CDT) GLUCOSE BY METER POCT 114(H) 70 - 99 mg/dL 03/08/2024 8:18 PM CDT RH LABORATORY POC Blood, Capillary BLOOD SPECIMEN / Unknown 03/08/2024 8:11 PM CDT 03/08/2024 8:18 PM CDT Ron DEAN - BEXIANG POCT Performing Organization Address [facility]/ZIP Co de Phone Number LABORATORY [facility] [address] Lab (1st floor, no room number) [place] [phone] [place] [address] * Glucose by meter (03/08/2024 5:59 PM CDT) GLUCOSE BY METER POCT 84 70 - 99 mg/dL 03/08/2024 6:05 PM CDT LABORATORY POC Blood, Capillary BLOOD SPECIMEN / Unknown 03/08/2024 5:59 PM CDT 03/08/2024 6:05 PM CDT Narrative Authorizing Provider Result Lauren DEAN - DAVID POCT Performing Organization Address [facility]/ZIP Co de Phone Number LABORATORY [facility] [address] Lab (1st floor, no room number) [place] [phone] [place] [address] * Glucose by meter (03/08/2024 5:28 PM CDT) GLUCOSE BY METER POCT 99 70 - 99 mg/dL 03/08/2024 5:35 PM CDT LABORATORY POC Blood, Capillary BLOOD SPECIMEN / Unknown 03/08/2024 5:28 PM CDT 03/08/2024 5:35 PM CDT Narrative Authorizing Provider Result Lauren DEAN - BEXIANG POCT LABORATORY [facility] [address] Lab (1st floor, no room number) [address] [place] [address] * Glucose by meter (03/08/2024 5:02 PM CDT) GLUCOSE BY METER POCT 79 70 - 99 mg/dL 03/08/2024 5:08 PM CDT RH LABORATORY POC Blood, Capillary BLOOD SPECIMEN / Unknown 03/08/2024 5:02 PM CDT 03/08/2024 5:08 PM CDT Ron DEAN - DAVID POCT Performing Organization Address [facility]/ZIP Co de Phone Number LABORATORY [facility] [address] Lab (1st floor, no room number) [place] [phone] [place] [address] * (ABNORMAL) Glucose by meter (03/08/2024 4:36 PM CDT) GLUCOSE BY METER POCT 63(L) 70 - 99 mg/dL 03/08/2024 4:43 PM CDT LABORATORY POC Blood, Capillary BLOOD SPECIMEN / Unknown 03/08/2024 4:36 PM CDT 03/08/2024 4:43 PM CDT Ron DEAN - DAVID POCT Performing Organization Address [facility]/ZIP Co de Phone Number LABORATORY [facility] [address] Lab (1st floor, no room number) [place] [phone] [place] [address] * (ABNORMAL) Glucose by meter (03/08/2024 3:59 PM CDT) GLUCOSE BY METER POCT 68(L) 70 - 99 mg/dL 03/08/2024 4:06 PM CDT LABORATORY POC Blood, Capillary BLOOD SPECIMEN / Unknown 03/08/2024 3:59 PM CDT 03/08/2024 4:06 PM CDT Ron Tripathi MD LAB - BEAKER POCT LABORATORY POC [facility] Lab [address] Lab (1st floor, no room number) [address] * (ABNORMAL) Hemoglobin (03/08/2024 2:42 PM CDT) Hemoglobin 8.1(L) 13.3 - 17.7 g/dL 03/08/2024 3:25 PM CDT LABORATORY Blood VASCULAR LINE / Unknown Venipuncture / Unknown 03/08/2024 2:42 PM CDT 03/08/2024 2:58 PM CDT Antonino Cheek MD LAB - BLOOD ORDERABL ES Performing Organization Address [facility]/ZIP Co de Phone Number LABORATORY [facility] Lab [address] Lab (1st floor, no room number) [address] [place] [address] * (ABNORMAL) Glucose by meter (03/08/2024 2:16 PM CDT) GLUCOSE BY METER POCT 104(H) 70 - 99 mg/dL 03/08/2024 2:23 PM CDT RH LABORATORY POC Comment:Dr/RN Notified Blood, Capillary BLOOD SPECIMEN / Unknown 03/08/2024 2:16 PM CDT 03/08/2024 2:23 PM CDT Ron Tripathi MD LAB - BEAKER POCT LABORATORY POC [facility] Lab [address] Lab (1st floor, no room number) [address] * (ABNORMAL) Glucose by meter (03/08/2024 1:56 PM CDT) GLUCOSE BY METER POCT 52(L) 70 - 99 mg/dL 03/08/2024 2:03 PM CDT LABORATORY POC Blood, Capillary BLOOD SPECIMEN / Unknown 03/08/2024 1:56 PM CDT 03/08/2024 2:03 PM CDT Ron DEAN - BEAKER POCT Performing Organization Address [facility] Co de Phone Number LABORATORY [facility] Lab [address] Lab (1st floor, no room number) [place] [address] * (ABNORMAL) Glucose by meter (03/08/2024 1:36 PM CDT) GLUCOSE BY METER POCT 69(L) 70 - 99 mg/dL 03/08/2024 1:49 PM CDT LABORATORY POC Blood, venous BLOOD SPECIMEN / Unknown 03/08/2024 1:36 PM CDT 03/08/2024 1:49 PM CDT Ron DEAN - DAVID POCT Performing Organization Address [facility] de Phone Number LABORATORY [facility] Lab [address] Lab (1st floor, no room number) [place] [address] * Surgical Pathology Exam (03/08/2024 1:26 PM CDT) Case Report Surgical Pathology Report ? Case: [id number] ? Authorizing Provider: ??Eileen Earl MD ?Collected: ? 03/08/2024 01:26 PM ? Ordering Location: ? [facility] ?Received: ?03/08/2024 02:01 PM ? Endoscopy [place] ? Pathologist: ? Jae Cardona MD ? Specimen: ?Rectum, Rectum polyp ? 03/09/2024 10:13 AM [facility] Final Diagnosis Rectum, polypectomy: --Hyperplastic polyp. 03/09/2024 10:13 AM [facility] Clinical Information Procedure: Colonoscopy with polypectomy by cold biopsy forceps Pre-op Diagnosis: Anemia, unspecified type [D64.9] Post-op Diagnosis: D64.9 - Anemia, unspecified type [ICD-10-CM] 03/09/2024 10:13 AM [facility] Gross Description A(1). Rectum, Rectum polyp: The specimen is received in formalin, labeled with the patient's name, medical record number and other identifying information and designated ? rectum polyp? . It consists of 2 english soft tissue fragments ranging from 0.1-0.4 cm. Entirely submitted in one cassette. MARY Gates(ASCP)CM 03/08/2024 2:57 PM 03/09/2024 10:13 AM [facility] Microscopic Description Microscopic examination was performed. 03/09/2024 10:13 AM [facility] Performing Labs The technical component of this testing was completed at [facility]. Stain controls for all stains resulted within this report have been reviewed and show appropriate reactivity. 03/09/2024 10:13 AM CDT LABORATORY Case Images 03/09/2024 10:13 AM CDT LABORATORY Polyp RECTUM PART / Unknown 03/08/2024 1:26 PM CDT 03/08/2024 2:01 PM CDT Eileen DEAN - DAVID VALENCIA LABORATORY [facility] Lab [address] Lab (1st floor, no room number) [place] [address] * COLONOSCOPY (03/08/2024 1:04 PM CDT) [facility] Signature COLONOSCOPY [facility] Patient Name: Herminio Victor ? Procedure [...] continuously. The ?Olympus Adult Colonoscope, Model # CF-FR752C, ?Censitrac # [id number] was introduced through the ?anus and advanced [...] Repeat exam ?in seven years. ? ____ ELIEEN EARL MD 03/08/2024 1:38:41 PM I was physically present for the entire viewing portion of the exam. EILEEN EARL MD Number of Addenda: 0 Note Initiated On: 03/08/2024 1:04 PM MRN: ?[id number] Procedure Date: ? 03/08/2024 1:04:50 PM Scope [...] MD LAB - BEAKER POCT LABORATORY [facility] [address] Lab (1st floor, no room number) [place] [address] * (ABNORMAL) Glucose by meter (03/08/2024 11:11 AM CDT) GLUCOSE BY METER POCT 65(L) 70 - 99 mg/dL 03/08/2024 11:17 AM CDT LABORATORY POC Blood, Capillary BLOOD SPECIMEN / Unknown 03/08/2024 11:11 AM CDT 03/08/2024 11:17 AM CDT Ron Tripathi MD LAB - BEAKER POCT LABORATORY [facility] [address] Lab (1st floor, no room number) [place] [address] * CONDITIONAL Transfuse red blood cells (unit) 1; No special requirements (03/08/2024 10:44 AM CDT) Eileen Earl MD BLOOD TRANSFUSION ORDERABLES * Glucose by meter (03/08/2024 8:50 AM CDT) GLUCOSE BY METER POCT 85 70 - 99 mg/dL 03/08/2024 8:56 AM CDT RH LABORATORY POC Blood, Capillary BLOOD SPECIMEN / Unknown 03/08/2024 8:50 AM CDT 03/08/2024 8:56 AM CDT Ron Biala MD LAB - BEAKER POCT Performing Organization Address [facility]/ZIP Co de Phone Number RH LABORATORY POC [facility] Lab [address] [facility] Lab (1st floor, no room number) [place] [address] * CONDITIONAL Prepare red blood cells (unit) (03/08/2024 7:50 AM CDT) Blood Component Type Red Blood Cells RH BLOOD BANK Product Code [id number] RH BLOO D BANK Unit Status Transfused RH BLOO D BANK Unit Number [id number] RH B LOOD BANK CROSSMATCH Compatible RH BLOOD BANK CODING SYSTEM [id number] RH BLO OD BANK ISSUE DATE AND TIME [id number] RH BLOOD BANK UNIT ABO/RH O+ RH BLOOD BANK UNIT TYPE ISBT 5100 RH BL OOD BANK 03/08/2024 7:50 AM CDT Eileen Earl MD BLOOD BANK PRODUCT ORDERABLES Performing Organization Address [facility] Co de Phone Number RH BLOOD BANK [address] [place] [address] * (ABNORMAL) Renal panel (03/08/2024 6:25 AM [...] - 99 mg/dL 03/08/2024 7:18 AM CDT RH LABORATORY Urea Nitrogen 30.2(H) 8.0 - 23.0 mg/dL 03/08/2024 7:18 AM CDT RH LABORATORY Creatinine 5.58(H) 0.67 - 1.17 mg/dL 03/08/2024 7:18 AM CDT RH LABORATORY GFR Estimate 11(L) >60 mL/min/1. 73m2 03/08/2024 7:18 AM CDT RH LABORATORY Calcium 7.2(L) 8.8 - 10.2 mg/dL [...] Earl MD LAB - BLOOD ORDERA BLES [facility] Lab [address] Lab (1st floor, no room number) [place] [phone] [place] [address] * (ABNORMAL) INR (03/08/2024 6:25 AM CDT) INR 1.18(H) 0.85 - 1.15 03/08/2024 7:03 AM CDT LABORATORY Blood STRUCTURE OF RIGHT UPPER LIMB / Unknown Venipuncture / Unknown 03/08/2024 6:25 AM CDT 03/08/2024 6:39 AM CDT Eileen Earl MD LAB - BLOOD ORDERA BLES [facility] Acute Care Lab [address] Lab (1st floor, no room number) [place] [address] * (ABNORMAL) Hemoglobin (03/08/2024 6:25 AM CDT) Hemoglobin 6.7(LL) 13.3 - 17.7 g/dL 03/08/2024 7:01 AM CDT RH LABORATORY Blood STRUCTURE OF RIGHT UPPER LIMB / Unknown Venipuncture / Unknown 03/08/2024 6:25 AM CDT 03/08/2024 6:39 AM CDT Antonino Cheek MD LAB - BLOOD ORDERABL ES [facility] Lab [address] Lab (1st floor, no room number) [place] [address], [facility] * (ABNORMAL) Glucose by meter (03/08/2024 6:00 AM CDT) GLUCOSE BY METER POCT 111(H) 70 - 99 mg/dL 03/08/2024 6:07 AM CDT LABORATORY POC Blood, Capillary BLOOD SPECIMEN / Unknown 03/08/2024 6:00 AM CDT 03/08/2024 6:07 AM CDT Rno DEAN - BEAKER POCT Performing Organization Address [facility]/ZIP Co de Phone Number LABORATORY [facility] [address] Lab (1st floor, no room number) [place] [address], [facility] * Glucose by meter (03/08/2024 3:08 AM CDT) GLUCOSE BY METER POCT 90 70 - 99 mg/dL 03/08/2024 3:15 AM CDT LABORATORY POC Blood, Capillary BLOOD SPECIMEN / Unknown 03/08/2024 3:08 AM CDT 03/08/2024 3:15 AM CDT Ron Tripathi MD LAB - BEAKER POCT LABORATORY [facility] Acute Care Lab [address] Lab (1st floor, no room number) [address] * Glucose by meter (03/08/2024 2:01 AM CDT) GLUCOSE BY METER POCT 76 70 - 99 mg/dL 03/08/2024 2:07 AM CDT RH LABORATORY POC Blood, Capillary BLOOD SPECIMEN / Unknown 03/08/2024 2:01 AM CDT 03/08/2024 2:07 AM CDT Ron Tripathi MD LAB - BEAKER POCT RH LABORATORY POC [facility] Care Lab [address] Lab (1st floor, no room number) [address] * (ABNORMAL) Hemoglobin (03/08/2024 1:12 AM CDT) Hemoglobin 7.6(L) 13.3 - 17.7 g/dL 03/08/2024 1:33 AM CDT RH LABORATORY Blood STRUCTURE OF LEFT HAND / Unknown Venipuncture / Unknown 03/08/2024 1:12 AM CDT 03/08/2024 1:30 AM CDT Antonino Cheek MD LAB - BLOOD ORDERABL ES Performing Organization Address City/[facility]/ZIP Co de Phone Number LABORATORY [facility] Lab [address] Lab (1st floor, no room number) [place] [phone] * US Upper Extremity Venous Duplex Right [...] US UPPER EXTREMITY VENOUS DUPLEX RIGHT LOCATION: [facility] DATE: 03/07/2024 INDICATION: Swelling, looking for [...] US UPPER EXTREMITY VENOUS DUPLEX RIGHT LOCATION: [facility] DATE: 03/07/2024 INDICATION: Swelling, looking for [...] theproximal to distal forearm. Antonino Cheek MD [facility] ORDERABLES * Glucose by meter (03/07/2024 9:31 PM CDT) [facility] GLUCOSE BY METER POCT 90 70 - 99 mg/dL 03/07/2024 9:38 PM CDT LABORATORY POC Blood, Capillary BLOOD SPECIMEN / Unknown 03/07/2024 9:31 PM CDT 03/07/2024 9:38 PM CDT Ron Tripathi MD LAB - BEAKER POCT RH LABORATORY [facility] Acute Care Lab [address] Lab (1st floor, no room number) [place] [address], [facility] * (ABNORMAL) Hemoglobin (03/07/2024 6:58 PM CDT) Hemoglobin 8.6(L) 13.3 - 17.7 g/dL 03/07/2024 8:44 PM CDT RH LABORATORY Blood STRUCTURE OF RIGHT HAND / Unknown Venipuncture / Unknown 03/07/2024 6:58 PM CDT 03/07/2024 7:06 PM CDT Antonino Cheek MD LAB - BLOOD ORDERABL ES [facility] Lab [address] Lab (1st floor, no room number) [place] [address] * Glucose by meter (03/07/2024 6:56 PM CDT) GLUCOSE BY METER POCT 86 70 - 99 mg/dL 03/07/2024 7:03 PM CDT LABORATORY POC Blood, Capillary BLOOD SPECIMEN / Unknown 03/07/2024 6:56 PM CDT 03/07/2024 7:03 PM CDT Ron DEAN - BEAKER POCT Performing Organization Address City/[facility]/ZIP Co de Phone Number LABORATORY [facility] [address] Lab (1st floor, no room number) [place] [address], [facility] * Glucose by meter (03/07/2024 5:03 PM CDT) GLUCOSE BY METER POCT 79 70 - 99 mg/dL 03/07/2024 5:10 PM CDT LABORATORY POC Blood, Capillary BLOOD SPECIMEN / Unknown 03/07/2024 5:03 PM CDT 03/07/2024 5:10 PM CDT Ron DEAN - BE[facility] POCT LABORATORY [facility] [address] Lab (1st floor, no room number) [place] [address], [facility] * Single Lumen Midline Placement (03/07/2024 1:34 PM CDT) Narrative Patricio Bocanegra RN - 03/07/2024 1:34 PM CDT Patricio Bocanegra RN ? 03/07/2024 ??1:41 PM [facility] Single Lumen Midline Placement Date/Time: 03/07/2024 [...] procedure a time out was called ?? [place] Protocol: the Joint Commission [place] Protocol was followed ?? Preparation: Patient was [...] size: 4 Fr Brand: Bard Lot number: [id number] Placement method: venipuncture, MST and ultrasound Number [...] AM CDT 03/07/2024 11:37 AM CDT Ron DEAN - BEAKER POCT LABORATORY [facility] [address] Lab (1st floor, no room number) [address] * Glucose by meter (03/07/2024 8:49 AM CDT) GLUCOSE BY METER POCT 77 70 - 99 mg/dL 03/07/2024 8:56 AM CDT LABORATORY POC Blood, Capillary BLOOD SPECIMEN / Unknown 03/07/2024 8:49 AM CDT 03/07/2024 8:56 AM CDT Ron DEAN - BEXIANG POCT LABORATORY [facility] [address] Lab (1st floor, no room number) [address] * (ABNORMAL) Renal panel (03/07/2024 6:21 [...] MD LAB - BLOOD ORDERA BLES LABORATORY [facility] [address] Lab (1st floor, no room number) [address] * (ABNORMAL) INR (03/07/2024 6:21 AM CDT) INR 1.28(H) 0.85 - 1.15 03/07/2024 7:17 AM CDT RH LABORATORY Blood BLOOD SPECIMEN / Unknown Venipuncture / Unknown 03/07/2024 6:21 AM CDT 03/07/2024 7:06 AM CDT Eileen Earl MD LAB - BLOOD ORDERA BLES LABORATORY [facility] [address] Lab (1st floor, no room number) [address] * (ABNORMAL) Hemoglobin (03/07/2024 6:21 AM CDT) Hemoglobin 7.8(L) 13.3 - 17.7 g/dL 03/07/2024 7:11 AM CDT RH LABORATORY Blood BLOOD SPECIMEN / Unknown Venipuncture / Unknown 03/07/2024 6:21 AM CDT 03/07/2024 7:06 AM CDT Eileen Earl MD LAB - BLOOD ORDERA BLES Performing Organization Address [facility]/ZIP Co de Phone Number LABORATORY [facility] [address] Lab (1st floor, no room number) [address] * Glucose by meter (03/07/2024 6:19 AM CDT) GLUCOSE BY METER POCT 98 70 - 99 mg/dL 03/07/2024 6:26 AM CDT LABORATORY POC Blood, Capillary BLOOD SPECIMEN / Unknown 03/07/2024 6:19 AM CDT 03/07/2024 6:26 AM CDT Ron Tripathi MD LAB - BEAKER POCT LABORATORY [facility] Lab [address] Lab (1st floor, no room number) [address] [place] [address] * Glucose by meter (03/07/2024 4:05 AM CDT) GLUCOSE BY METER POCT 78 70 - 99 mg/dL 03/07/2024 4:11 AM CDT RH LABORATORY POC Blood, Capillary BLOOD SPECIMEN / Unknown 03/07/2024 4:05 AM CDT 03/07/2024 4:11 AM CDT Ron Tripathi MD LAB - BEAKER POCT LABORATORY [facility] [address] Lab (1st floor, no room number) [address] [place] [address] * (ABNORMAL) Hemoglobin (03/07/2024 1:04 AM CDT) Hemoglobin 7.6(L) 13.3 - 17.7 g/dL 03/07/2024 1:17 AM CDT RH LABORATORY Blood STRUCTURE OF LEFT HAND / Unknown Venipuncture / Unknown 03/07/2024 1:04 AM CDT 03/07/2024 1:14 AM CDT Eileen Earl MD LAB - BLOOD ORDERA BLES [facility] [address] Lab (1st floor, no room number) [address] * (ABNORMAL) Glucose by meter (03/07/2024 12:40 AM CDT) GLUCOSE BY METER POCT 116(H) 70 - 99 mg/dL 03/07/2024 12:48 AM CDT RH LABORATORY POC Blood, Capillary BLOOD SPECIMEN / Unknown 03/07/2024 12:40 AM CDT 03/07/2024 12:48 AM CDT Ron DEAN - BEAKER POCT Performing Organization Address [facility]/ZIP Co de Phone Number LABORATORY [facility] [address] Lab (1st floor, no room number) [place] [phone] [place] [address] * (ABNORMAL) Glucose by meter (03/06/2024 9:36 PM CDT) GLUCOSE BY METER POCT 112(H) 70 - 99 mg/dL 03/06/2024 9:44 PM CDT RH LABORATORY POC Blood, Capillary BLOOD SPECIMEN / Unknown 03/06/2024 9:36 PM CDT 03/06/2024 9:44 PM CDT Ron Tripathi MD LAB - BEAKER POCT Performing Organization Address [facility]/ZIP Co de Phone Number LABORATORY [facility] [address] Lab (1st floor, no room number) [place] [phone] [place] [address] * Extra Serum Separator Tube (SST) (03/06/2024 7:55 PM CDT) Hold Specimen JIC 03/06/2024 9:03 PM CDT LABORATORY Blood BLOOD SPECIMEN / Unknown Venipuncture / Unknown 03/06/2024 7:55 PM CDT 03/06/2024 7:55 PM CDT Narrative Authorizing Provider Result Lauren Tripathi MD LAB - BLOOD ORDERABL ES Performing Organization Address [facility]/ZIP Co de Phone Number [facility] Lab [address] Lab (1st floor, no room number) [place] [phone] [place] [address] * (ABNORMAL) Glucose by meter (03/06/2024 6:37 PM CDT) GLUCOSE BY METER POCT 112(H) 70 - 99 mg/dL 03/06/2024 6:45 PM CDT RH LABORATORY POC Blood, Capillary BLOOD SPECIMEN / Unknown 03/06/2024 6:37 PM CDT 03/06/2024 6:45 PM CDT Ron Tripathi MD LAB - [facility] POCT RH LABORATORY [facility] Lab [address] Lab (1st floor, no room number) [place] [address], [facility] * (ABNORMAL) CBC with platelets and [...] Cheek MD LAB - BLOOD ORDERABL ES [facility] Lab [address] Lab (1st floor, no room number) [place] [address] * (ABNORMAL) Glucose (03/06/2024 4:28 PM CDT) Glucose 196(H) 70 - 99 mg/dL 03/06/2024 4:54 PM CDT RH LABORATORY Blood STRUCTURE OF LEFT UPPER LIMB / Unknown Venipuncture / Unknown 03/06/2024 4:28 PM CDT 03/06/2024 4:32 PM CDT Antonino Cheek MD LAB - BLOOD ORDERABL ES LABORATORY [facility] Lab [address] Lab (1st floor, no room number) [place] [address], [facility] * (ABNORMAL) Basic metabolic panel (03/06/2024 [...] MD LAB - BLOOD ORDERABL ES LABORATORY [facility] Lab [address] Lab (1st floor, no room number) [place] [address], [facility] * (ABNORMAL) Hemoglobin (03/06/2024 4:28 PM CDT) Hemoglobin 7.4(L) 13.3 - 17.7 g/dL 03/06/2024 4:47 PM CDT LABORATORY Blood STRUCTURE OF LEFT UPPER LIMB / Unknown Venipuncture / Unknown 03/06/2024 4:28 PM CDT 03/06/2024 4:33 PM CDT Eileen Earl MD LAB - BLOOD ORDERA BLES [facility] Lab [address] Lab (1st floor, no room number) [address] * (ABNORMAL) Glucose by meter (03/06/2024 4:26 PM CDT) GLUCOSE BY METER POCT 196(H) 70 - 99 mg/dL 03/06/2024 4:33 PM CDT LABORATORY POC Blood, Capillary BLOOD SPECIMEN / Unknown 03/06/2024 4:26 PM CDT 03/06/2024 4:33 PM CDT Ron DEAN - DAVID POCT Performing Organization Address City[facility]/ZIP Co de Phone Number [facility] Lab [address] Lab (1st floor, no room number) [address] [place] [address] * (ABNORMAL) Glucose by meter (03/06/2024 4:17 PM CDT) GLUCOSE BY METER POCT 38(LL) 70 - 99 mg/dL 03/06/2024 4:24 PM CDT LABORATORY POC Comment:Dr/RN Notified Blood, Capillary BLOOD SPECIMEN / Unknown 03/06/2024 4:17 PM CDT 03/06/2024 4:24 PM CDT Ron DEAN - BEXIANG POCT LABORATORY [facility] Lab [address] Lab (1st floor, no room number) [place] [address] * (ABNORMAL) Glucose by meter (03/06/2024 4:10 PM CDT) GLUCOSE BY METER POCT 47(LL) 70 - 99 mg/dL 03/19/2024 8:02 AM CDT LABORATORY POC Comment:Dr/RN Notified Blood, Capillary BLOOD SPECIMEN / Unknown 03/06/2024 4:10 PM CDT 03/19/2024 8:02 AM CDT Ron DEAN - BEAKER POCT Performing Organization Address [facility]/ZIP Co de Phone Number LABORATORY [facility] [address] Lab (1st floor, no room number) [place] [address] * (ABNORMAL) Glucose by meter (03/06/2024 3:18 PM CDT) GLUCOSE BY METER POCT 64(L) 70 - 99 mg/dL 03/06/2024 3:26 PM CDT LABORATORY POC Blood, Capillary BLOOD SPECIMEN / Unknown 03/06/2024 3:18 PM CDT 03/06/2024 3:26 PM CDT Ron DEAN - DAVID POCT LABORATORY [facility] Lab [address] Lab (1st floor, no room number) [place] [phone] * (ABNORMAL) Glucose by meter (03/06/2024 3:03 PM CDT) GLUCOSE BY METER POCT 63(L) 70 - 99 mg/dL 03/06/2024 3:11 PM CDT LABORATORY POC Blood, Capillary BLOOD SPECIMEN / Unknown 03/06/2024 3:03 PM CDT 03/06/2024 3:11 PM CDT Ron Tripathi MD LAB - BEAKER POCT Performing Organization Address City[facility]/ZIP Co de Phone Number LABORATORY [facility] Lab [address] Lab (1st floor, no room number) [place] [address] * (ABNORMAL) Hemoglobin - Pre-Op (03/06/2024 1:23 PM CDT) Hemoglobin 7.6(L) 13.3 - 17.7 g/dL 03/06/2024 1:39 PM CDT LABORATORY Blood STRUCTURE OF RIGHT UPPER LIMB / Unknown Venipuncture / Unknown 03/06/2024 1:23 PM CDT 03/06/2024 1:34 PM CDT Antonino Cheek MD LAB - BLOOD ORDERABL ES Performing Organization Address [facility]/ZIP Co de Phone Number LABORATORY [facility] Lab [address] Lab (1st floor, no room number) [place] [phone] * UPPER GI ENDOSCOPY (03/06/2024 1:21 PM CDT) Upper GI Endoscopy [facility] Patient Name: Herminio Victor ? Procedure [...] ?Olympus Gastroscope, Model # [id number], Censitrac # [id number] was introduced through the mouth, and ?advanced [...] Note Initiated On: 03/06/2024 1:21 PM MRN: ?[id number] Procedure Date: ? 03/06/2024 1:21:29 PM Total [...] DEAN - DAVID POCT Performing Organization Address City[facility]/ZIP Co de Phone Number LABORATORY [facility] [address] Lab (1st floor, no room number) [place] [address] * Transfuse red blood cells [...] Ron DEAN - DAVID POCT RH LABORATORY [facility] Lab [address] Lab (1st floor, no room number) [place] [address], [facility] * Adult Type and Screen (03/06/2024 8:53 AM CDT) ABO/RH(D) O POS 03/06/2024 7:57 AM CDT RH BLOOD BANK Antibody Screen Negative Negative 03/06/2024 7:57 AM CDT RH BLOOD BANK SPECIMEN EXPIRATION DATE [id number] 03/06/2024 7:57 AM CDT RH BLOOD BANK Blood STRUCTURE OF RIGHT HAND / Unknown Venipuncture / Unknown 03/06/2024 8:53 AM CDT 03/06/2024 9:00 AM CDT Antonino Cheek MD LAB - BLOOD BANK SHANNON T ORDER RH BLOOD BANK [address] [place] [address] * Glucose by meter (03/06/2024 7:57 AM CDT) GLUCOSE BY METER POCT 87 70 - 99 mg/dL 03/06/2024 8:04 AM CDT RH LABORATORY POC Blood, Capillary BLOOD SPECIMEN / Unknown 03/06/2024 7:57 AM CDT 03/06/2024 8:04 AM CDT Ron Tripathi MD LAB - BEAKER POCT RH LABORATORY POC [facility] Lab [address] [facility] Lab (1st floor, no room number) [place] [address] * Prepare red blood cells (unit) (03/06/2024 7:50 AM CDT) Blood Component Type Red Blood Cells RH BLOOD BANK Product Code [id number] RH BLOO D BANK Unit Status Transfused RH BLOO D BANK Unit Number [id number] RH B LOOD BANK CROSSMATCH Compatible RH BLOOD BANK CODING SYSTEM [id number] RH BLO OD BANK ISSUE DATE AND TIME [id number] RH BLOOD BANK UNIT ABO/RH O+ RH BLOOD BANK UNIT TYPE ISBT 5100 RH BL OOD BANK 03/06/2024 7:50 AM CDT Antonino Cheek MD BLOOD BANK PRODUCT O RDERABLES [place]OD [place] [address], [facility] * (ABNORMAL) Renal panel (03/06/2024 6:54 [...] Earl MD LAB - BLOOD ORDERA BLES [facility] Lab [address] Lab (1st floor, no room number) [place] [address] * (ABNORMAL) Hemoglobin (03/06/2024 6:54 AM CDT) Hemoglobin 7.0(L) 13.3 - 17.7 g/dL 03/06/2024 7:04 AM CDT RH LABORATORY Blood STRUCTURE OF RIGHT HAND / Unknown Venipuncture / Unknown 03/06/2024 6:54 AM CDT 03/06/2024 7:00 AM CDT Antonino Cheek MD LAB - BLOOD ORDERABL ES Performing Organization Address [facility]/ZIP Co de Phone Number [facility] Lab [address] Lab (1st floor, no room number) [place] [address] * (ABNORMAL) INR (03/06/2024 6:54 AM CDT) INR 1.51(H) 0.85 - 1.15 03/06/2024 7:19 AM CDT LABORATORY Blood STRUCTURE OF RIGHT HAND / Unknown Venipuncture / Unknown 03/06/2024 6:54 AM CDT 03/06/2024 7:00 AM CDT Eileen Earl MD LAB - BLOOD ORDERA BLES Performing Organization Address City[facility]/ZIP Co de Phone Number [facility] Lab [address] Lab (1st floor, no room number) [place] [address], [facility] * Glucose by meter (03/06/2024 4:05 AM CDT) GLUCOSE BY METER POCT 90 70 - 99 mg/dL 03/06/2024 4:21 AM CDT RH LABORATORY POC Blood, Capillary BLOOD SPECIMEN / Unknown 03/06/2024 4:05 AM CDT 03/06/2024 4:21 AM CDT Narrative Authorizing Provider Result Lauren DEAN - BEAKER POCT LABORATORY [facility] Lab [address] Lab (1st floor, no room number) [place] [address], [facility] * (ABNORMAL) Glucose by meter (03/06/2024 12:01 AM CDT) GLUCOSE BY METER POCT 101(H) 70 - 99 mg/dL 03/06/2024 12:13 AM CDT LABORATORY POC Blood, Capillary BLOOD SPECIMEN / Unknown 03/06/2024 12:01 AM CDT 03/06/2024 12:13 AM CDT Narrative Authorizing Provider Result Lauren DEAN - BEAKER POCT LABORATORY [facility] [address] Lab (1st floor, no room number) [place] [address], [facility] * Glucose by meter (03/05/2024 10:01 PM CDT) GLUCOSE BY METER POCT 87 70 - 99 mg/dL 03/05/2024 10:09 PM CDT LABORATORY POC Blood, Capillary BLOOD SPECIMEN / Unknown 03/05/2024 10:01 PM CDT 03/05/2024 10:09 PM CDT Narrative Authorizing Provider Result Lauren DEAN - BEAKER POCT LABORATORY [facility] [address] Lab (1st floor, no room number) [place] [address], [facility] * (ABNORMAL) Hemoglobin (03/05/2024 6:53 PM CDT) Hemoglobin 8.4(L) 13.3 - 17.7 g/dL 03/05/2024 7:07 PM CDT RH LABORATORY Blood STRUCTURE OF LEFT HAND / Unknown Venipuncture / Unknown 03/05/2024 6:53 PM CDT 03/05/2024 7:02 PM CDT Antonino Cheek MD LAB - BLOOD ORDERABL ES [facility] Lab [address] Lab (1st floor, no room number) [address] [place] [address] * Glucose by meter (03/05/2024 5:47 PM CDT) GLUCOSE BY METER POCT 96 70 - 99 mg/dL 03/05/2024 5:54 PM CDT LABORATORY POC Blood, Capillary BLOOD SPECIMEN / Unknown 03/05/2024 5:47 PM CDT 03/05/2024 5:54 PM CDT Ron Tripathi MD LAB - BEAKER POCT Performing Organization Address City/[facility]/ZIP Co de Phone Number LABORATORY [facility] [address] Lab (1st floor, no room number) [address] * CONDITIONAL Transfuse red blood cells (unit) 1; No special requirements (03/05/2024 4:07 PM CDT) Eileen Earl MD BLOOD TRANSFUSION ORDERABLES * CONDITIONAL Prepare red blood cells (unit) (03/05/2024 12:47 PM CDT) Blood Component Type Red Blood Cells RH BLOOD BANK Product Code [id number] RH BLOO D BANK Unit Status Transfused RH BLOO D BANK Unit Number [id number] RH B LOOD BANK CROSSMATCH Compatible RH BLOOD BANK CODING SYSTEM [id number] RH BLO OD BANK ISSUE DATE AND TIME [id number] RH BLOOD BANK UNIT ABO/RH O+ RH BLOOD BANK UNIT TYPE ISBT 5100 RH BL OOD BANK 03/05/2024 12:4 7 PM CDT Ron Tripathi MD BLOOD BANK PRODUCT O RDERABLES Performing Organization Address [facility] Co de Phone Number BLOOD BANK [address] [place] [address], [facility] * (ABNORMAL) Hemoglobin (03/05/2024 12:12 PM CDT) Hemoglobin 6.9(LL) 13.3 - 17.7 g/dL 03/05/2024 12:40 PM CDT RH LABORATORY Blood STRUCTURE OF LEFT HAND / Unknown Venipuncture / Unknown 03/05/2024 12:12 PM CDT 03/05/2024 12:21 PM CDT Antonino Cheek MD LAB - BLOOD ORDERABL ES Performing Organization Address [facility] Co de Phone Number LABORATORY [facility] Lab [address] Lab (1st floor, no room number) [place] [address], [facility] * (ABNORMAL) Glucose by meter (03/05/2024 12:06 PM CDT) GLUCOSE BY METER POCT 107(H) 70 - 99 mg/dL 03/05/2024 12:13 PM CDT LABORATORY POC Blood, Capillary BLOOD SPECIMEN / Unknown 03/05/2024 12:06 PM CDT 03/05/2024 12:13 PM CDT Ron Tripathi MD LAB - BEAKER POCT Performing Organization Address [facility]/ZIP Co de Phone Number LABORATORY POC [facility] Lab [address] Lab (1st floor, no room number) [place] [address], [facility] * Glucose by meter (03/05/2024 7:58 AM CDT) GLUCOSE BY METER POCT 83 70 - 99 mg/dL 03/05/2024 8:04 AM CDT RH LABORATORY POC Blood, Capillary BLOOD SPECIMEN / Unknown 03/05/2024 7:58 AM CDT 03/05/2024 8:04 AM CDT Ron Tripathi MD LAB - BEAKER POCT LABORATORY POC [facility] Lab [address] Lab (1st floor, no room number) [address] * (ABNORMAL) Hemoglobin (03/05/2024 7:35 AM CDT) Hemoglobin 7.1(L) 13.3 - 17.7 g/dL 03/05/2024 8:01 AM CDT RH LABORATORY Blood STRUCTURE OF LEFT HAND / Unknown Venipuncture / Unknown 03/05/2024 7:35 AM CDT 03/05/2024 7:57 AM CDT Aashish Romero DO LAB - BLOOD ORDER NADIA [facility] Lab [address] Lab (1st floor, no room number) [address] [place] [address] * (ABNORMAL) INR (03/05/2024 7:35 AM CDT) INR 2.20(H) 0.85 - 1.15 03/05/2024 8:13 AM CDT RH LABORATORY Blood STRUCTURE OF LEFT HAND / Unknown Venipuncture / Unknown 03/05/2024 7:35 AM CDT 03/05/2024 7:57 AM CDT Eileen Earl MD LAB - BLOOD ORDERA BLES [facility] Lab [address] Lab (1st floor, no room number) [place] [phone] [place] [address] * (ABNORMAL) Comprehensive metabolic panel (03/05/2024 7:35 AM CDT) Sodium 116(LL) 135 - 145 mmol/L 03/05/2024 9:14 AM CDT RH LABORATORY Comment: Result confirmed by repeated test. [...] - 99 mg/dL 03/05/2024 9:14 AM CDT LABORATORY Alkaline Phosphatase 76 40 - 150 [...] LAB - BLOOD ORDER NADIA RH LABORATORY [facility] [address] [facility] (1st floor, no room number) [place] [address] * (ABNORMAL) CBC with platelets (03/05/2024 [...] - 15.0 % 03/05/2024 8:01 AM CDT LABORATORY Platelet Count 162 150 - 450 10e3/uL 03/05/2024 8:01 AM CDT RH LABORATORY Blood STRUCTURE OF LEFT HAND / Unknown Venipuncture / Unknown 03/05/2024 7:35 AM CDT 03/05/2024 7:57 AM CDT Aashish Romero DO LAB - BLOOD ORDER NADIA LABORATORY [facility] Lab [address] Lab (1st floor, no room number) [place] [address], [facility] * (ABNORMAL) Glucose by meter (03/05/2024 4:09 AM CDT) GLUCOSE BY METER POCT 107(H) 70 - 99 mg/dL 03/05/2024 4:16 AM CDT RH LABORATORY POC Blood, Capillary BLOOD SPECIMEN / Unknown 03/05/2024 4:09 AM CDT 03/05/2024 4:16 AM CDT Ron DEAN - DAVID POCT Performing Organization Address City/[facility]/ZIP Co de Phone Number LABORATORY [facility] [address] Lab (1st floor, no room number) [place] [address], [facility] * (ABNORMAL) Glucose by meter (03/05/2024 3:22 AM CDT) GLUCOSE BY METER POCT 115(H) 70 - 99 mg/dL 03/05/2024 3:30 AM CDT LABORATORY POC Blood, Capillary BLOOD SPECIMEN / Unknown 03/05/2024 3:22 AM CDT 03/05/2024 3:30 AM CDT Ron DEAN - BEAKER POCT LABORATORY [facility] [address] Lab (1st floor, no room number) [place] [address] [place] [address] * (ABNORMAL) Glucose by meter (03/05/2024 12:07 AM CDT) GLUCOSE BY METER POCT 118(H) 70 - 99 mg/dL 03/05/2024 12:14 AM CDT RH LABORATORY POC Blood, Capillary BLOOD SPECIMEN / Unknown 03/05/2024 12:07 AM CDT 03/05/2024 12:14 AM CDT Ron DEAN - EVERAKER POCT LABORATORY [facility] [address] Lab (1st floor, no room number) [address] * (ABNORMAL) Glucose by meter (03/04/2024 9:37 PM CDT) GLUCOSE BY METER POCT 132(H) 70 - 99 mg/dL 03/04/2024 9:45 PM CDT LABORATORY POC Blood, Capillary BLOOD SPECIMEN / Unknown 03/04/2024 9:37 PM CDT 03/04/2024 9:45 PM CDT Narrative Authorizing Provider Result Lauren DEAN - DAVID POCT LABORATORY [facility] [address] Lab (1st floor, no room number) [address] * (ABNORMAL) Glucose by meter (03/04/2024 8:34 PM CDT) GLUCOSE BY METER POCT 122(H) 70 - 99 mg/dL 03/04/2024 8:41 PM CDT RH LABORATORY POC Blood, Capillary BLOOD SPECIMEN / Unknown 03/04/2024 8:34 PM CDT 03/04/2024 8:41 PM CDT Narrative Authorizing Provider Result Lauren HERNANDEZ POCT LABORATORY [facility] Lab [address] Lab (1st floor, no room number) [address] * (ABNORMAL) Potassium (03/04/2024 6:29 PM CDT) Potassium 5.6(H) 3.4 - 5.3 mmol/L 03/04/2024 7:00 PM CDT RH LABORATORY Blood STRUCTURE OF LEFT HAND / Unknown Venipuncture / Unknown 03/04/2024 6:29 PM CDT 03/04/2024 6:37 PM CDT Job Her MD LAB - BLOOD ORDERABL ES [facility] [address] Lab (1st floor, no room number) [address] * (ABNORMAL) Hemoglobin (03/04/2024 6:29 PM CDT) Hemoglobin 7.7(L) 13.3 - 17.7 g/dL 03/04/2024 6:41 PM CDT LABORATORY Blood STRUCTURE OF LEFT HAND / Unknown Venipuncture / Unknown 03/04/2024 6:29 PM CDT 03/04/2024 6:37 PM CDT Aashish Romero DO LAB - BLOOD ORDER NADIA [facility] [address] Lab (1st floor, no room number) [address] * Glucose by meter (03/04/2024 5:44 PM CDT) GLUCOSE BY METER POCT 93 70 - 99 mg/dL 03/04/2024 5:51 PM CDT LABORATORY POC Blood, Capillary BLOOD SPECIMEN / Unknown 03/04/2024 5:44 PM CDT 03/04/2024 5:51 PM CDT Ron Tripathi MD LAB - DAVID POCT Performing Organization Address City/[facility]/ZIP Co de Phone Number LABORATORY [facility] [address] Lab (1st floor, no room number) [place] [address] * Glucose by meter (03/04/2024 3:12 PM CDT) GLUCOSE BY METER POCT 96 70 - 99 mg/dL 03/04/2024 3:19 PM CDT RH LABORATORY POC Blood, Capillary BLOOD SPECIMEN / Unknown 03/04/2024 3:12 PM CDT 03/04/2024 3:19 PM CDT Ron DEAN - DAVID POCT Performing Organization Address City/[facility]/ZIP Co de Phone Number LABORATORY [facility] [address] Lab (1st floor, no room number) [place] [address] * Glucose by meter (03/04/2024 1:46 PM CDT) GLUCOSE BY METER POCT 86 70 - 99 mg/dL 03/04/2024 1:53 PM CDT LABORATORY POC Blood, Capillary BLOOD SPECIMEN / Unknown 03/04/2024 1:46 PM CDT 03/04/2024 1:53 PM CDT Narrative Authorizing Provider Result Lauren DEAN - DAVID POCT Performing Organization Address City/[facility]/ZIP Co de Phone Number LABORATORY [facility] [address] Lab (1st floor, no room number) [place] [id number] * (ABNORMAL) Glucose by meter (03/04/2024 1:09 PM CDT) GLUCOSE BY METER POCT 67(L) 70 - 99 mg/dL 03/04/2024 1:15 PM CDT [facility] LABORATORY POC Blood, Capillary BLOOD SPECIMEN / Unknown 03/04/2024 1:09 PM CDT 03/04/2024 1:15 PM CDT Ron Tripathi MD LAB - BEAKER POCT LABORATORY [facility] [address] Lab (1st floor, no room number) [place] [phone] [place] [address] * (ABNORMAL) Glucose by meter (03/04/2024 11:59 AM CDT) GLUCOSE BY METER POCT 69(L) 70 - 99 mg/dL 03/04/2024 12:06 PM CDT [facility] LABORATORY POC Blood, Capillary BLOOD SPECIMEN / Unknown 03/04/2024 11:59 AM CDT 03/04/2024 12:06 PM CDT Ron Tripathi MD LAB - BEAKER POCT Performing Organization Address City/[facility]/ZIP Co de Phone Number LABORATORY [facility] [address] [address] [facility] (1st floor, no room number) [place] [phone] [place] [address] * Glucose by meter (03/04/2024 10:47 AM CDT) GLUCOSE BY METER POCT 74 70 - 99 mg/dL 03/04/2024 11:06 AM CDT RH LABORATORY POC Blood, Capillary BLOOD SPECIMEN / Unknown 03/04/2024 10:47 AM CDT 03/04/2024 11:06 AM CDT Ron Tripathi MD LAB - BEAKER POCT LABORATORY [facility] [address] Lab (1st floor, no room number) [place] [id number], [facility] * Glucose by meter (03/04/2024 8:58 AM CDT) GLUCOSE BY METER POCT 81 70 - 99 mg/dL 03/04/2024 9:06 AM CDT RH LABORATORY POC Blood, Capillary BLOOD SPECIMEN / Unknown 03/04/2024 8:58 AM CDT 03/04/2024 9:06 AM CDT Ron Tripathi MD LAB - BEAKER POCT LABORATORY [facility] Lab [address] Lab (1st floor, no room number) [place] [address] * Glucose by meter (03/04/2024 7:03 AM CDT) GLUCOSE BY METER POCT 76 70 - 99 mg/dL 03/04/2024 7:10 AM CDT LABORATORY POC Blood, Capillary BLOOD SPECIMEN / Unknown 03/04/2024 7:03 AM CDT 03/04/2024 7:10 AM CDT Ron DEAN - BEAKER POCT Performing Organization Address [facility]/ZIP Co de Phone Number LABORATORY [facility] Lab [address] Lab (1st floor, no room number) [place] [phone] [place] [address] * (ABNORMAL) Comprehensive metabolic panel (03/04/2024 6:45 [...] - 1.17 mg/dL 03/04/2024 8:11 AM CDT RH LABORATORY GFR Estimate 8(L) >60 mL/min/1. 73m2 03/04/2024 8:11 AM CDT [facility] LABORATORY Calcium 8.2(L) 8.8 - 10.2 mg/dL 03/04/2024 8:11 AM CDT [facility] LABORATORY Chloride 87(L) 98 [...] DO LAB - BLOOD ORDER NADIA LABORATORY [facility] Acute [facility] Lab [address] Lab (1st floor, no room number) [place] [address] * (ABNORMAL) CBC with platelets (03/04/2024 6:45 [...] LAB - BLOOD ORDER NADIA RH LABORATORY [facility] Lab [address] Lab (1st floor, no room number) [place] [address], [facility] * (ABNORMAL) Hemoglobin (03/04/2024 6:45 AM CDT) Hemoglobin 7.1(L) 13.3 - 17.7 g/dL 03/04/2024 6:57 AM CDT RH LABORATORY Blood STRUCTURE OF RIGHT UPPER LIMB / Unknown Venipuncture / Unknown 03/04/2024 6:45 AM CDT 03/04/2024 6:54 AM CDT Ron Tripathi MD LAB - BLOOD ORDERABL ES LABORATORY [facility] Lab [address] Lab (1st floor, no room number) [place] [address], [facility] * Cortisol (03/04/2024 6:45 AM CDT) [...] DO LAB - BLOOD ORDER NADIA LABORATORY [facility] [place] [facility] [address] [facility], [address] [place] [address], [facility] * Glucose by meter (03/04/2024 5:08 AM CDT) GLUCOSE BY METER POCT 93 70 - 99 mg/dL 03/04/2024 5:15 AM CDT LABORATORY POC Blood, Capillary BLOOD SPECIMEN / Unknown 03/04/2024 5:08 AM CDT 03/04/2024 5:15 AM CDT Ron Tripathi MD LAB - BEAKER POCT LABORATORY POC [facility] Lab [address] Lab (1st floor, no room number) [place] [address], [facility] * (ABNORMAL) Glucose by meter (03/04/2024 3:28 AM CDT) GLUCOSE BY METER POCT 116(H) 70 - 99 mg/dL 03/04/2024 3:36 AM CDT RH LABORATORY POC Blood, Capillary BLOOD SPECIMEN / Unknown 03/04/2024 3:28 AM CDT 03/04/2024 3:36 AM CDT Narrative Authorizing Provider Result Lauren DEAN - BEAKER POCT LABORATORY [facility] [address] Lab (1st floor, no room number) [place] [address] * Glucose by meter (03/04/2024 2:12 AM CDT) GLUCOSE BY METER POCT 77 70 - 99 mg/dL 03/04/2024 2:20 AM CDT RH LABORATORY POC Comment:Dr/RN Notified Blood, Capillary BLOOD SPECIMEN / Unknown 03/04/2024 2:12 AM CDT 03/04/2024 2:20 AM CDT Narrative Authorizing Provider Result Lauren DEAN - BEXIANG POCT Performing Organization Address City/[facility]/ZIP Co de Phone Number LABORATORY [facility] [address] Lab (1st floor, no room number) [place] [address] * Glucose by meter (03/04/2024 12:25 AM CDT) GLUCOSE BY METER POCT 96 70 - 99 mg/dL 03/04/2024 12:32 AM CDT RH LABORATORY POC Blood, Capillary BLOOD SPECIMEN / Unknown 03/04/2024 12:25 AM CDT 03/04/2024 12:32 AM CDT Narrative Authorizing Provider Result Lauren Tripathi MD LAB - BEAKER POCT LABORATORY [facility] Acute Care Lab [address] Lab (1st floor, no room number) [address] * (ABNORMAL) Hemoglobin (03/03/2024 9:40 PM CDT) Hemoglobin 7.2(L) 13.3 - 17.7 g/dL 03/03/2024 9:53 PM CDT RH LABORATORY Blood STRUCTURE OF RIGHT UPPER LIMB / Unknown Venipuncture / Unknown 03/03/2024 9:40 PM CDT 03/03/2024 9:50 PM CDT Narrative Authorizing Provider Result Lauren Tripathi MD LAB - BLOOD ORDERABL ES LABORATORY [facility] Care Lab [address] Lab (1st floor, no room number) [address] * (ABNORMAL) Glucose by meter (03/03/2024 8:13 PM CDT) GLUCOSE BY METER POCT 144(H) 70 - 99 mg/dL 03/03/2024 8:20 PM CDT LABORATORY POC Blood, Capillary BLOOD SPECIMEN / Unknown 03/03/2024 8:13 PM CDT 03/03/2024 8:20 PM CDT Narrative Authorizing Provider Result Lauren DEAN - BEAKER POCT Performing Organization Address City/[facility]/ZIP Co de Phone Number LABORATORY POC [facility] Care Lab [address] Lab (1st floor, no room number) [address] * (ABNORMAL) Glucose by meter (03/03/2024 6:23 PM CDT) GLUCOSE BY METER POCT 110(H) 70 - 99 mg/dL 03/03/2024 6:29 PM CDT LABORATORY POC Blood, Capillary BLOOD SPECIMEN / Unknown 03/03/2024 6:23 PM CDT 03/03/2024 6:29 PM CDT Narrative Authorizing Provider Result Lauren DEAN - BEAKER POCT LABORATORY [facility] Lab [address] Lab (1st floor, no room number) [place] [address] * (ABNORMAL) Glucose by meter (03/03/2024 5:39 PM CDT) GLUCOSE BY METER POCT 57(L) 70 - 99 mg/dL 03/03/2024 5:45 PM CDT RH LABORATORY POC Blood, Capillary BLOOD SPECIMEN / Unknown 03/03/2024 5:39 PM CDT 03/03/2024 5:45 PM CDT Ron DEAN - BEAKER POCT Performing Organization Address [facility]/ZIP Co de Phone Number LABORATORY [facility] [address] Lab (1st floor, no room number) [place] [address] * (ABNORMAL) Glucose by meter (03/03/2024 5:11 PM CDT) GLUCOSE BY METER POCT 64(L) 70 - 99 mg/dL 03/03/2024 5:18 PM CDT LABORATORY POC Blood, Capillary BLOOD SPECIMEN / Unknown 03/03/2024 5:11 PM CDT 03/03/2024 5:18 PM CDT Ron DEAN - DAVID POCT Performing Organization Address [facility]/ZIP Co de Phone Number LABORATORY [facility] Care Lab [address] Lab (1st floor, no room number) [place] [address] * (ABNORMAL) Glucose by meter (03/03/2024 4:39 PM CDT) GLUCOSE BY METER POCT 55(L) 70 - 99 mg/dL 03/03/2024 4:46 PM CDT RH LABORATORY POC Blood, Capillary BLOOD SPECIMEN / Unknown 03/03/2024 4:39 PM CDT 03/03/2024 4:46 PM CDT Narrative Authorizing Provider Result Lauren Tripathi MD LAB - BEAKER POCT LABORATORY [facility] [address] Lab (1st floor, no room number) [address] * (ABNORMAL) Glucose by meter (03/03/2024 4:17 PM CDT) GLUCOSE BY METER POCT 65(L) 70 - 99 mg/dL 03/03/2024 4:25 PM CDT RH LABORATORY POC Blood, Capillary BLOOD SPECIMEN / Unknown 03/03/2024 4:17 PM CDT 03/03/2024 4:25 PM CDT Ron Tripathi MD LAB - BEAKER POCT Performing Organization Address City/[facility]/ZIP Co de Phone Number LABORATORY [facility] [address] Lab (1st floor, no room number) [address] * (ABNORMAL) Glucose by meter (03/03/2024 2:11 PM CDT) GLUCOSE BY METER POCT 65(L) 70 - 99 mg/dL 03/03/2024 2:17 PM CDT LABORATORY POC Blood, Capillary BLOOD SPECIMEN / Unknown 03/03/2024 2:11 PM CDT 03/03/2024 2:17 PM CDT Ron Tripathi MD LAB - BEAKER POCT LABORATORY [facility] [address] Lab (1st floor, no room number) [address] * (ABNORMAL) Hemoglobin (03/03/2024 2:07 PM CDT) Hemoglobin 7.6(L) 13.3 - 17.7 g/dL 03/03/2024 2:13 PM CDT RH LABORATORY Blood STRUCTURE OF RIGHT UPPER LIMB / Unknown Venipuncture / Unknown 03/03/2024 2:07 PM CDT 03/03/2024 2:10 PM CDT Narrative Authorizing Provider Result Lauren Tripathi MD LAB - BLOOD ORDERABL ES Performing Organization Address [facility]/State/ZIP Co de Phone Number [facility] Lab [address] Lab (1st floor, no room number) [place] [address], [facility] * (ABNORMAL) Glucose by meter (03/03/2024 11:59 AM CDT) GLUCOSE BY METER POCT 152(H) 70 - 99 mg/dL 03/03/2024 2:15 PM CDT LABORATORY POC Blood, Capillary BLOOD SPECIMEN / Unknown 03/03/2024 11:59 AM CDT 03/03/2024 2:15 PM CDT Narrative Authorizing Provider Result Lauren DEAN - BEAKER POCT Performing Organization Address [facility]/ZIP Co de Phone Number [facility] Lab [address] Lab (1st floor, no room number) [place] [address], [facility] * Glucose by meter (03/03/2024 11:36 AM CDT) GLUCOSE BY METER POCT 80 70 - 99 mg/dL 03/03/2024 2:14 PM CDT LABORATORY POC Blood, Capillary BLOOD SPECIMEN / Unknown 03/03/2024 11:36 AM CDT 03/03/2024 2:14 PM CDT Narrative Authorizing Provider Result Lauren DEAN - BEAKER POCT Performing Organization Address City/[facility]/ZIP Co de Phone Number LABORATORY [facility] Lab [address] Lab (1st floor, no room number) [place] [address], [facility] * (ABNORMAL) Glucose by meter (03/03/2024 11:14 AM CDT) GLUCOSE BY METER POCT 39(LL) 70 - 99 mg/dL 03/03/2024 2:14 PM CDT LABORATORY POC Comment:Dr/RN Notified Blood, Capillary BLOOD SPECIMEN / Unknown 03/03/2024 11:14 AM CDT 03/03/2024 2:14 PM CDT Ron Tripathi MD LAB - BEAKER POCT LABORATORY [facility] Lab [address] Lab (1st floor, no room number) [address] [place] [address] * Glucose by meter (03/03/2024 10:51 AM CDT) GLUCOSE BY METER POCT 79 70 - 99 mg/dL 03/03/2024 10:58 AM CDT LABORATORY POC Blood, Capillary BLOOD SPECIMEN / Unknown 03/03/2024 10:51 AM CDT 03/03/2024 10:58 AM CDT Ron Tripathi MD LAB - BEAKER POCT Performing Organization Address City/[facility]/ZIP Co de Phone Number LABORATORY [facility] [address] Lab (1st floor, no room number) [place] [phone], [facility] * (ABNORMAL) Glucose by meter (03/03/2024 10:30 AM CDT) GLUCOSE BY METER POCT 56(L) 70 - 99 mg/dL 03/03/2024 10:37 AM CDT LABORATORY POC Blood, Capillary BLOOD SPECIMEN / Unknown 03/03/2024 10:30 AM CDT 03/03/2024 10:37 AM CDT Ron Tripathi MD LAB - BEAKER POCT LABORATORY [facility] [address] Lab (1st floor, no room number) [place] [phone], [facility] * (ABNORMAL) Hemoglobin (03/03/2024 6:10 AM CDT) Hemoglobin 7.1(L) 13.3 - 17.7 g/dL 03/03/2024 6:27 AM CDT RH LABORATORY Blood STRUCTURE OF RIGHT UPPER LIMB / Unknown Venipuncture / Unknown 03/03/2024 6:10 AM CDT 03/03/2024 6:25 AM CDT Ron Tripathi MD LAB - BLOOD ORDERABL ES Performing Organization Address City/[facility]/ZIP Co de Phone Number LABORATORY [facility] Acute [facility] Lab [address] Lab (1st floor, no room number) [place] [phone] [place] [address] * (ABNORMAL) INR (03/03/2024 6:10 AM CDT) INR 2.23(H) 0.85 - 1.15 03/03/2024 6:46 AM CDT RH LABORATORY Blood STRUCTURE OF RIGHT UPPER LIMB / Unknown Venipuncture / Unknown 03/03/2024 6:10 AM CDT 03/03/2024 6:25 AM CDT Ron Tripathi MD LAB - BLOOD ORDERABL ES Performing Organization Address [facility] Co de Phone Number [facility] Lab [address] Lab (1st floor, no room number) [place] [phone] [place] [address] * (ABNORMAL) CBC with platelets (03/03/2024 6:10 [...] MD LAB - BLOOD ORDERABL ES LABORATORY [facility] Lab [address] [facility] Lab (1st floor, no room number) [place] [address] * (ABNORMAL) Basic metabolic panel (03/03/2024 6:10 AM CDT) Sodium 132(L) 135 - 145 mmol/L 03/03/2024 6:46 AM CDT RH LABORATORY Comment:Reference intervals for this test were updated on 07/05/2023 to more accurately reflect our healthy population. There may be differences in the flagging of prior results with similar values performed with this method. Interpretation of those prior results can be made in the context of the updated reference intervals. Potassium 4.3 3.4 - 5.3 mmol/L 03/03/2024 6:46 AM CDT RH LABORATORY Chloride 93(L) 98 - 107 mmol/L 03/03/2024 6:46 AM CDT LABORATORY Carbon Dioxide (CO2) 27 22 - 29 mmol/L 03/03/2024 6:46 AM CDT RH LABORATORY Anion Gap 12 7 - 15 mmol/L 03/03/2024 6:46 AM CDT RH LABORATORY Urea Nitrogen 35.9(H) 8.0 - 23.0 mg/dL 03/03/2024 6:46 AM CDT RH LABORATORY Creatinine 5.63(H) 0.67 - 1.17 mg/dL 03/03/2024 6:46 AM CDT RH LABORATORY GFR Estimate 11(L) >60 mL/min/1. 73m2 03/03/2024 6:46 AM CDT RH LABORATORY Calcium 8.2(L) 8.8 - 10.2 mg/dL 03/03/2024 6:46 AM CDT RH LABORATORY Glucose 138(H) 70 - 99 mg/dL 03/03/2024 6:46 AM CDT RH LABORATORY Blood STRUCTURE OF RIGHT UPPER LIMB / Unknown Venipuncture / Unknown 03/03/2024 6:10 AM CDT 03/03/2024 6:25 AM CDT Narrative Authorizing Provider Result Lauren Tripathi MD LAB - BLOOD ORDERABL ES LABORATORY [facility] Care Lab [address] Lab (1st floor, no room number) [place] [phone] * (ABNORMAL) Glucose by meter (03/03/2024 5:27 AM CDT) GLUCOSE BY METER POCT 135(H) 70 - 99 mg/dL 03/03/2024 5:34 AM CDT LABORATORY POC Blood, Capillary BLOOD SPECIMEN / Unknown 03/03/2024 5:27 AM CDT 03/03/2024 5:34 AM CDT Narrative Authorizing Provider Result Lauren Tripathi MD LAB - BEAKER POCT LABORATORY POC [facility] Lab [address] Lab (1st floor, no room number) [place] [address], [facility] * Glucose by meter (03/03/2024 4:16 AM CDT) GLUCOSE BY METER POCT 71 70 - 99 mg/dL 03/03/2024 4:23 AM CDT RH LABORATORY POC Blood, Capillary BLOOD SPECIMEN / Unknown 03/03/2024 4:16 AM CDT 03/03/2024 4:23 AM CDT Ron Tripathi MD LAB - BEAKER POCT LABORATORY [facility] Lab [address] Lab (1st floor, no room number) [place] [phone] [place] [address] * Glucose by meter (03/03/2024 2:40 AM CDT) GLUCOSE BY METER POCT 91 70 - 99 mg/dL 03/03/2024 2:46 AM CDT LABORATORY POC Blood, Capillary BLOOD SPECIMEN / Unknown 03/03/2024 2:40 AM CDT 03/03/2024 2:46 AM CDT Ron Tripathi MD LAB - BEXIANG POCT Performing Organization Address [facility]/ZIP Co de Phone Number LABORATORY [facility] [address] Lab (1st floor, no room number) [place] [phone] [place] [address] * CONDITIONAL Transfuse red blood cells (unit) 1; No special requirements (03/03/2024 1:50 AM CDT) Eileen Earl MD BLOOD TRANSFUSION ORDERABLES * Glucose by meter (03/03/2024 1:38 AM CDT) GLUCOSE BY METER POCT 82 70 - 99 mg/dL 03/03/2024 1:46 AM CDT LABORATORY POC Blood, Capillary BLOOD SPECIMEN / Unknown 03/03/2024 1:38 AM CDT 03/03/2024 1:46 AM CDT Ron DEAN - BEXIANG POCT LABORATORY [facility] [address] Lab (1st floor, no room number) [place] [phone] [place] [address] * Glucose by meter (03/03/2024 12:34 AM CDT) GLUCOSE BY METER POCT 74 70 - 99 mg/dL 03/03/2024 12:40 AM CDT LABORATORY POC Blood, Capillary BLOOD SPECIMEN / Unknown 03/03/2024 12:34 AM CDT 03/03/2024 12:40 AM CDT Ron Tripathi MD LAB - BEAKER POCT [facility] Lab [address] Lab (1st floor, no room number) [address] * Transfuse red blood cells (unit) (03/02/2024 10:54 PM CDT) Raúl Bernard MD BLOOD TRANSFUSION OR DERABLES * (ABNORMAL) Hemoglobin (03/02/2024 10:17 PM CDT) Hemoglobin 6.7(LL) 13.3 - 17.7 g/dL 03/02/2024 10:35 PM CDT RH LABORATORY Blood STRUCTURE OF RIGHT UPPER LIMB / Unknown Venipuncture / Unknown 03/02/2024 10:17 PM CDT 03/02/2024 10:26 PM CDT Narrative Authorizing Provider Result Lauren Tripathi MD LAB - BLOOD ORDERABL ES Performing Organization Address [facility]/ZIP Co de Phone Number [facility] Lab [address] Lab (1st floor, no room number) [address] * (ABNORMAL) Glucose by meter (03/02/2024 9:34 PM CDT) GLUCOSE BY METER POCT 126(H) 70 - 99 mg/dL 03/02/2024 10:03 PM CDT LABORATORY POC Blood, Capillary BLOOD SPECIMEN / Unknown 03/02/2024 9:34 PM CDT 03/02/2024 10:03 PM CDT Narrative Authorizing Provider Result Lauren DEAN - BEAKER POCT LABORATORY POC [facility] Acute Care Lab [address] Lab (1st floor, no room number) [place] [phone] [place] [address] * (ABNORMAL) Glucose by meter (03/02/2024 9:01 PM CDT) GLUCOSE BY METER POCT 136(H) 70 - 99 mg/dL 03/02/2024 9:11 PM CDT RH LABORATORY POC Blood, Capillary BLOOD SPECIMEN / Unknown 03/02/2024 9:01 PM CDT 03/02/2024 9:11 PM CDT Ron DEAN - BEAKER POCT LABORATORY [facility] [address] Lab (1st floor, no room number) [place] [phone] [place] [address] * (ABNORMAL) Glucose by meter (03/02/2024 8:26 PM CDT) GLUCOSE BY METER POCT 65(L) 70 - 99 mg/dL 03/02/2024 8:34 PM CDT LABORATORY POC Blood, Capillary BLOOD SPECIMEN / Unknown 03/02/2024 8:26 PM CDT 03/02/2024 8:34 PM CDT Ron DEAN - EVERAKER POCT LABORATORY [facility] Lab [address] Lab (1st floor, no room number) [place] [phone] [place] [address] * (ABNORMAL) Glucose by meter (03/02/2024 8:01 PM CDT) GLUCOSE BY METER POCT 54(L) 70 - 99 mg/dL 03/02/2024 8:27 PM CDT LABORATORY POC Blood, Capillary BLOOD SPECIMEN / Unknown 03/02/2024 8:01 PM CDT 03/02/2024 8:27 PM CDT Ron DEAN - BEAKER POCT Performing Organization Address [facility]/ZIP Co de Phone Number LABORATORY [facility] [address] Lab (1st floor, no room number) [address] * (ABNORMAL) Glucose by meter (03/02/2024 7:45 PM CDT) GLUCOSE BY METER POCT 41(LL) 70 - 99 mg/dL 03/02/2024 7:55 PM CDT RH LABORATORY POC Blood, Capillary BLOOD SPECIMEN / Unknown 03/02/2024 7:45 PM CDT 03/02/2024 7:55 PM CDT Ron Tripathi MD LAB - BEAKER POCT Performing Organization Address [facility]/ZIP Co de Phone Number LABORATORY [facility] Lab [address] Lab (1st floor, no room number) [address] * (ABNORMAL) Ammonia (on ice) (03/02/2024 3:55 PM CDT) Ammonia <10(L) 16 - 60 umol/L 03/02/2024 4:21 PM CDT RH LABORATORY Blood STRUCTURE OF RIGHT UPPER LIMB / Unknown Venipuncture / Unknown 03/02/2024 3:55 PM CDT 03/02/2024 3:57 PM CDT Raúl Bernard MD LAB - BLOOD ORDERABL ES [facility] Acute Care Lab [address] Lab (1st floor, no room number) [address] [place] [address] * Prepare red blood cells (unit) (03/02/2024 3:29 PM CDT) Blood Component Type Red Blood Cells RH BLOOD BANK Product Code [id number] RH BLOO D BANK Unit Status Transfused RH BLOO D BANK Unit Number [id number] RH B LOOD BANK CROSSMATCH Compatible RH BLOOD BANK CODING SYSTEM [id number] RH BLO OD BANK ISSUE DATE AND TIME [id number] RH BLOOD BANK UNIT ABO/RH O+ RH BLOOD BANK UNIT TYPE ISBT 5100 RH BL OOD BANK 03/02/2024 3:29 PM CDT Raúl Bernard MD BLOOD BANK PRODUCT O RDERABLES Performing Organization Address [facility] Co de Phone Number RH BLOOD BANK [address] [place] [address] * Prepare red blood cells (unit) (03/02/2024 3:29 PM CDT) Blood Component Type Red Blood Cells RH BLOOD BANK Product Code [id number] RH BLOO D BANK Unit Status Transfused RH BLOO D BANK Unit Number [id number] RH B LOOD BANK CROSSMATCH Compatible RH BLOOD BANK CODING SYSTEM [id number] RH BLO OD BANK ISSUE DATE AND TIME [id number] RH BLOOD BANK UNIT ABO/RH O+ RH BLOOD BANK UNIT TYPE ISBT 5100 RH BL OOD BANK 03/02/2024 3:29 PM CDT Raúl Bernard MD BLOOD BANK PRODUCT O RDERABLES Performing Organization Address [facility] de Phone Number RH BLOOD BANK [address] [place] [address], [place] * EKG 12-lead, tracing only (03/02/2024 2:00 PM CDT) Systolic Blood Pressure mmHg RADIOLOGY RESULTS Diastolic Blood Pressure mmHg RADIOLOGY RESULTS Ventricular Rate 82 BPM RAD IOLOGY RESULTS Atrial Rate 82 BPM RADIOLOG Y RESULTS MO Interval 210 ms RADIOLOG Y RESULTS QRS Duration 88 ms RADIOLO GY RESULTS QT 382 ms RADIOLOGY RESULTS QTc 446 ms RADIOLOGY RESULTS P [place] 45 degrees RADIOLOGY RESULTS R AXIS -7 degrees RADIOLOGY RESULTS T [place] 24 degrees RADIOLOGY RESULTS Interpretation ECG Sinus rhythm with 1st degree A-V block Inferior infarct , age undetermined Abnormal ECG When compared with ECG of 24-FEB-2024 10:12, No significant change was found Unconfirmed report - interpretation of this ECG is computer generated - see medical record for final interpretation Confirmed by - EMERGENCY ROOM, PHYSICIAN ([place]), editor trade journal YISSEL VELASQUEZ ([id number]) on 03/02/2024 3:43:16 PM RADIOLOGY RESULTS 03/02/2024 [...] the Xpert Xpress CoV2/Flu/RSV Assay on the [employer] GeneXpert Instrument. This test should be ordered [...] management. This test was validated by the [facility] [employer]. These laboratories are certified under the Clinical Laboratory Improvement Amendments of 1988 (CLIA-88) as qualified to perform high complexity laboratory testing. Raúl Bernard MD LAB - MICRO GENERAL ORDERABLES [facility] Lab [address] [facility] Lab (1st floor, no room number) [place] [address] * Hemoglobin A1c (03/02/2024 1:56 [...] BLOOD ORDERABL ES Performing Organization Address [facility]/ZIP Co de Phone Number [facility] [address] [facility] ([facility]st floor, no room number) [place] [address] * Adult Type and Screen (03/02/2024 1:56 PM CDT) ABO/RH(D) O POS 03/02/2024 2:59 PM CDT RH BLOOD BANK Antibody Screen Negative Negative 03/02/2024 2:59 PM CDT RH BLOOD BANK SPECIMEN EXPIRATION DATE [id number] 03/02/2024 2:59 PM CDT RH BLOOD BANK Blood BLOOD SPECIMEN / Unknown Venipuncture / Unknown 03/02/2024 1:56 PM CDT 03/02/2024 2:15 PM CDT Raúl Bernard MD LAB - BLOOD BANK SHANNON T ORDER Performing Organization Address City/[facility]/ZIP Co de Phone Number BLOOD BANK [address] [place] [address] * (ABNORMAL) CBC with platelets [...] - BLOOD ORDERABL ES Performing Organization Address City/[facility]/ZIP Co de Phone Number [facility] [address] Lab (1st floor, no room number) [address] [place] [address] * (ABNORMAL) INR (03/02/2024 1:56 PM CDT) INR 2.09(H) 0.85 - 1.15 03/02/2024 3:14 PM CDT [facility] LABORATORY Blood BLOOD SPECIMEN / Unknown Venipuncture / Unknown 03/02/2024 1:56 PM CDT 03/02/2024 2:15 PM CDT Raúl Bernard MD LAB - BLOOD ORDERABL ES Performing Organization Address City/[facility]/ZIP Co de Phone Number LABORATORY [facility] [address] Lab (1st floor, no room number) [place] [phone] [place] [address] * (ABNORMAL) Comprehensive metabolic panel (03/02/2024 1:56 [...] Bernard MD LAB - BLOOD ORDERABL ES [facility] [address] Lab (1st floor, no room number) [place] [phone] * Extra Heparinized Syringe (03/02/2024 1:56 PM CDT) Hold Specimen [facility] 03/02/2024 3:17 PM CDT [facility] Blood, venous BLOOD SPECIMEN / Unknown Venipuncture / Unknown 03/02/2024 1:56 PM CDT 03/02/2024 2:14 PM CDT Raúl Bernard MD LAB - BLOOD ORDERABL ES Performing Organization Address [facility]/ZIP Co de Phone Number [facility] [address] Lab (1st floor, no room number) [place] [address], [facility] * Extra Blood Bank Purple Top Tube (03/02/2024 1:56 PM CDT) Hold Specimen [facility] 03/02/2024 3:17 PM CDT [facility] Blood BLOOD SPECIMEN / Unknown Venipuncture / Unknown 03/02/2024 1:56 PM CDT 03/02/2024 2:15 PM CDT Raúl Bernard MD LAB - BLOOD ORDERABL ES Performing Organization Address City/[facility]/ZIP Co de Phone Number [facility] [address] Lab (1st floor, no room number) [place] [phone] * Extra Blood Bank Purple Top Tube (03/02/2024 1:56 PM CDT) Hold Specimen [facility] 03/02/2024 3:17 PM CDT [facility] Blood BLOOD SPECIMEN / Unknown Venipuncture / Unknown 03/02/2024 1:56 PM CDT 03/02/2024 2:15 PM CDT Raúl Bernard MD LAB - BLOOD ORDERABL ES [facility] [address] Lab (1st floor, no room number) [place] [address], [facility] * Extra Purple Top Tube (03/02/2024 1:56 PM CDT) Hold Specimen [facility] 03/02/2024 3:17 PM CDT [facility] Blood BLOOD SPECIMEN / Unknown Venipuncture / Unknown 03/02/2024 1:56 PM CDT 03/02/2024 2:15 PM CDT Raúl Bernard MD LAB - BLOOD ORDERABL ES Performing Organization Address [facility]/ZIP Co de Phone Number [facility] [address] Lab (1st floor, no room number) [place] [address], [facility] * Extra Green Top ([place] Heparin) Tube (03/02/2024 1:56 PM CDT) Hold Specimen [facility] 03/02/2024 3:17 PM CDT [facility] Blood BLOOD SPECIMEN / Unknown Venipuncture / Unknown 03/02/2024 1:56 PM CDT 03/02/2024 2:15 PM CDT Raúl Bernard MD LAB - BLOOD ORDERABL ES [facility] [address] Lab (1st floor, no room number) [place] [address], [facility] * Extra Red Top Tube (03/02/2024 1:56 PM CDT) Hold Specimen [facility] 03/02/2024 3:17 PM CDT [facility] Blood BLOOD SPECIMEN / Unknown Venipuncture / Unknown 03/02/2024 1:56 PM CDT 03/02/2024 2:15 PM CDT Raúl Bernard MD LAB - BLOOD ORDERABL ES Performing Organization Address [facility]/ZIP Co de Phone Number [facility] [address] Lab (1st floor, no room number) [place] [address] * Extra Blue Top Tube (03/02/2024 1:56 PM CDT) Hold Specimen [facility] 03/02/2024 3:17 PM CDT [facility] Blood BLOOD SPECIMEN / Unknown Venipuncture / Unknown 03/02/2024 1:56 PM CDT 03/02/2024 2:15 PM CDT Raúl Bernard MD LAB - BLOOD ORDERABL ES Performing Organization Address [facility] de Phone Number [facility] [address] Lab (1st floor, no room number) [place] [phone] documented in this encounter Visit [...] IN DIALYSIS/CRRT, Administer over 2-5 Minutes, On Tue03/05/24 at 0730, For 1 dose, GIVE DURING [...] 5 mg, Oral, ONCE AT 6PM, On Tue03/10/24 at 1800, For 1 dose $Given 03/10/2024 [...] Szymanski, LINDA) 2009 ($Given - Provider: Harriett Jacobsen, LINDA) calcium acetate (PHOSLO) capsule 667 mg 667 [...] Oral, EVERY OTHER DAY, First dose on 03/04/24 at 0900, Hold for loose stools. 0902 [...] Intravenous, 250 mL, ONCE IN DIALYSIS/CRRT, On 03/12/24 at 0830, For 1 dose, For patient [...] stools. documented in this encounter Care Teams Embryology Professor Relationship Specialty Start Date End Date Cornell Butt: [phone] PCP - General 06/24/11 documented as of this encounter
--- OUTSIDE RECORDS SUMMARY | 2024-06-04 11:05 | XMS_ITS | Encounter Summary ---
Author Organization [place] Address [address] [place] [address] Care Team Providers Care Vibrator Equipment Tester Name Role Phone Cornell Butt Primary Care Provider [phone] Reason for Visit * Reason Comments Generalized Weakness * Auth/Cert (Routine) Specialty Diagnoses / Procedures Referred By Contac t Referred To Contact Med Surg Diagnoses Black stool Anemia, unspecified type Anemia, unspecified type Black stool 5 Medical Surgical [address] [place] [address] Referral ID Status Reason Start Date Expiration Date Visits Re quested Visits Authorized [id number] 1 1 Encounter Details Date Type Department Care Team (Late st Contact Info) Description 03/08/2024 12:20 PM CDT - 03/08/2024 12:[address] 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 [facility] Hospitalist Discharge Summary Date of [...] the patient was re cently hospitalized at [facility] from 02/23 to 02/25 for the treatment [...] minutes discharging this patient. Nicolasa Luke DO [place] [id number] MEDICAL SURGICAL [address] [facility] [address] Physical Exam Vital Signs: Temp: 98.4 ??F [...] US UPPER EXTREMITY VENOUS DUPLEX RIGHT LOCATION: [facility] DATE: 03/07/2024 INDICATION: Swelling, looking [...] EXAM: XR CHEST PORT 1 VIEW LOCATION: [facility] DATE: 03/11/2024 INDICATION: Shortness of [...] Refills: 3 Associated Diagnoses: Mixed hyperlipidemia B Zwvxemw-D-Njjoy Acid (WESCAPS PO) Take 1 capsule by [...] Dispensed Refills Start Date End Date B Yijjkbg-U-Hnplm Acid (WESCAPS PO) Take 1 capsule by [...] Date: 03/12/2024 Discharge Disposition: Home 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 Contacted [employer] [facility]ene[employer] to confirm that transportation needed to be set up. She stated they use [facility] for his dialysis appointments. Called [facility] and they are unable to provide transportation on short notice and they would not have openings today. Discussed with patients Aunt and she is agreeable to having CM set up [facility] transport and is aware of the potential cost if insurance does not cover. Contacted [facility] and transport set up for [phone]. Aunt will be at home to accept and she confirms a ramp in the rear of the home. Lynne Cárdenas EARTH MOVER [facility] [employer] [facility] [phone] * Lynne Cárdenas RN - 03/12/2024 1:41 PM CDT Care Management Discharge Note Discharge Date: 03/12/2024 Discharge Disposition: Home Discharge Services: AFRICANA STUDIES PROFESSOR Discharge DME: None Discharge Transportation: agency, other (see comments) ([place] out of [place]) Private pay costs discussed: Not applicable Does [...] reach her or aunt who is patients AFRICANA STUDIES PROFESSOR. Left voice mail. Lynne Cárdenas EARTH MOVER [employer] [facility] [phone] * Melissa Dewey RN - 03/12/2024 12:36 [...] every 4 hours. Outpatient Dialysis at [facility]. Patient repositioned every 2 hours during the [...] Interval History: Dialysis run parameters reviewed with terrazzo tile maker at patient bedside. Seen on run Resting [...] JON -- 8.3* Recent Labs Lab 03/12/24 0606 03/11/24 0703 POTASSIUM 4.9 4.8 Recent Labs Lab [...] this interval not displayed. Wojciech Holman MD [facility] - Nephrology [phone] * Jose Enrique Naylor MD - 03/11/2024 10:24 AM CDT Chart reviewed. Labs and vitals reviewed. Sodium better at 126. Potassium okay. No indication for dialysis today. Noted an episode of vomiting and APPOINTMENT CLERK. Chest x-ray appears clear without pulmonary congestion [...] interval not displayed. Jose Enrique Naylor MD [facility] - Nephrology [phone] * Nicolasa Luke DO - 03/11/2024 9:13 AM CDT [facility] Medicine Progress Note - Hospitalist [...] the patient was re cently hospitalized at [facility] from 02/23 to 02/25 for the treatment [...] 1 unit with hgb this AM 7.8 -APPOINTMENT CLERK overnight had episode of emesis, CPAP was [...] of 03/03. Appeared to be asymptomatic - APPOINTMENT CLERK called for EGD 03/06 because of hypoglycemia. [...] with Mother and Aunt (who is his AFRICANA STUDIES PROFESSOR) Hx of CVA Legally Blind Hypertension Hyperlipidemia [...] with help/services Nicolasa Luke DO Hospitalist Service [facility] Securely message with Dealo (more info) Text page via [facility] Paging/Directory Physical Exam Vital Signs: Temp: 98.7 [...] N/A D-dimer: N/A Fibrinogen: N/A * Harriett Jacobsen, RN - 03/11/2024 3:23 AM CDT APPOINTMENT CLERK called. Patient had received 1 unit of blood earlier in the evening. Had cpap put on for the night. air liaison and special staff and field underwriter came into the room and cpap mask was off and patient was on his left side and had vomited. Emesis was yellow in color with some food chunks. Vomit was not evident in the cpap mask. Respiratory was paged and came to see the patient at the bedside. Cross cover was also paged. APPOINTMENT CLERK was then called incase patient had aspirated on vomit. Cpap was not placed back on patient after emesis episode. * Portia Domingo RT - 03/11/2024 3:10 AM CDT Attended APPOINTMENT CLERK that was called due to pt vomiting. [...] - 03/11/2024 3:07 AM CDT Responded to APPOINTMENT CLERK called for an episode of emesis. Patient [...] Romero DO - 03/10/2024 10:27 AM CDT [facility] Hospitalist Progress Note Name: Herminio [...] note, the patient was recently hospitalized at [facility] from 02/23 to 02/25 for the treatment [...] for recheck this evening. Updated mother Arianna Fylnn/AFRICANA STUDIES PROFESSOR Thelma via phone. All questions answered. Problem [...] of 03/03. Appeared to be asymptomatic - APPOINTMENT CLERK called for EGD 03/06 because of hypoglycemia. [...] with Mother and Aunt (who is his AFRICANA STUDIES PROFESSOR) Hx of CVA Legally Blind Hypertension Hyperlipidemia [...] Eileen Earl MD 667 mg at 03/10/24 0902 insulin aspart (NovoLOG) injection (RAPID ACTING) 1-4 Units Subcutaneous TID w/meals Aashish Romero, metoprolol tartrate (LOPRESSOR) tablet 100 mg 100 mg Oral QAM Eileen Earl MD 100 mg at 03/10/24 0902 multivitamin RENAL (TRIPHROCAPS) capsule Oral QPM Eileen [...] the past 24 hour(s)). Aashish Romero DO [facility] Hospitalist [address] [facility] [place] [address] Securely message with Dealo (more info) Text page via [employer] Paging/Directory 03/10/2024 * Portia Domingo RT - [...] given low sodium Jose Enrique Naylor MD [facility] - Nephrology [phone] Interval History : Seen / examined on [...] lab results: Recent Labs Lab Test 03/09/24 0912 03/09/24 0549 03/08/24 2235 03/08/24 1442 03/08/24 0625 [...] 4.7 5.5* CHLORIDE 86* 89* 78* CO2 BUN 34.6* 30.2* 55.9* ANIONGAP 15 13 16* Recent Labs Lab Test 03/09/24 0912 03/09/24 0549 03/08/24 0625 03/07/24 0621 03/06/24 0654 03/05/24 0735 03/04/24 0645 03/02/24 1356 ALBUMIN -- 2.8* 2.8* 2.8* < > 2.7* 2.9* 3.3* BILITOTAL 0.5 -- -- -- -- 0.4 0.5 0.2 ALT -- -- -- -- -- AST -- -- -- -- -- 22 [...] including patient evaluation, reviewing documentation/test results, and forder operator. Discussed with Dr. Earl. Will no longer follow. Please call with questions or change in condition. Ebony Cheek PA-C [facility] ( [facility]) * Cintia Valadez RN - 03/09/2024 [...] to treatment See Adult Hemodialysis flowsheet in [employer] for further details and post assessment. Machine [...] - 03/09/2024 8:28 AM CDT [facility] Medicine Progress Note - Hospitalist Service [...] the patient was re cently hospitalized at [facility] from 02/23 to 02/25 for the treatment [...] of 03/03. Appeared to be asymptomatic - APPOINTMENT CLERK called for EGD 03/06 because of hypoglycemia. [...] with Mother and Aunt (who is his AFRICANA STUDIES PROFESSOR) Hx of CVA Legally Blind Hypertension Hyperlipidemia [...] 2-4 Days Antonino Cheek MD Hospitalist Service [facility] Securely message with Dealo (more info) Text page via [facility] Paging/Directory Interval History Denies any symptoms today. [...] Mariluz on 03/09/2024 at 5:39 AM * Jsoe Enrique Naylor MD - 03/08/2024 11:54 AM [...] interval not displayed. Jose Enrique Naylor MD [facility] - Nephrology [phone] * Antonino Cheek MD - 03/08/2024 8:22 AM CDT [facility] Medicine Progress Note - Hospitalist Service [...] the patient was re cently hospitalized at [facility] from 02/23 to 02/25 for the treatment [...] of 03/03. Appeared to be asymptomatic - APPOINTMENT CLERK called for EGD 03/06 because of hypoglycemia. [...] with Mother and Aunt (who is his AFRICANA STUDIES PROFESSOR) Hx of CVA Legally Blind Hypertension Hyperlipidemia [...] 2-4 Days Antonino Cheek MD Hospitalist Service [facility] Securely message with Dealo (more info) Text page via [facility] Paging/Directory Interval History Patient denies chest pain [...] Pulse: 81 Resp: 18 SpO2: 91 % W0Dqumao: Nasal cannula Oxygen Delivery: 2 LPM Weight: [...] US UPPER EXTREMITY VENOUS DUPLEX RIGHT LOCATION: [facility] DATE: 03/07/2024 INDICATION: Swelling, looking [...] checked every 4 hours. Outpatient Dialysis at [facility] Patient repositioned every 2 hours during the treatment. Pre & Post treatment report called to Anusha Lindsey RN Please note: Please remove patient dressing on AVF and AVG needle sites 24 hours after dialysis. Ifleaking occurs please apply a Band-Aid. Melissa Newton RN * Antonino Cheek MD - 03/07/2024 4:12 PM CDT [facility] Medicine Progress Note - Hospitalist [...] the patient was re cently hospitalized at [facility] from 02/23 to 02/25 for the treatment [...] of 03/03. Appeared to be asymptomatic - APPOINTMENT CLERK called for EGD 03/06 because of hypoglycemia. [...] with Mother and Aunt (who is his AFRICANA STUDIES PROFESSOR) Hx of CVA Legally Blind Hypertension Hyperlipidemia [...] 2-4 Days Antonino Cheek MD Hospitalist Service [facility] Securely message with Dealo (more info) Text page via [facility] Paging/Directory Interval History Patient denies symptoms, sleeping [...] given low sodium Jose Enrique Naylor MD [facility] - Nephrology [phone] Interval History : Seen / examined. No [...] and thrill Labs: All labs reviewed by in Electrolytes/Renal - Recent Labs Lab Test 03/07/24 [...] tablet 2 tablet Oral Every Other Day Eielen Earl MD 2 tabletat 03/04/24 0900 sodium [...] including patient evaluation, reviewing documentation/test results, and forder operator. Discussed with Dr. Janette Cheek PA-C [facility] ( [facility]) * Byron Camarillo RN - 03/07/2024 [...] diet. Patient is due for dialysis tomorrow. [facility] unable to complete colonoscopy today due to lack of preparation. I will discuss with them the convenience to wait 1 more day before colonoscopy. * Megan Salazar - 03/06/2024 4:20 PM CDT [facility] Progress Note MS 5 Responded to patient's room regarding overhead Adult Rapid Response CODE. Patient receiving cares. No family present. SHS not needed. SHS remains available. Rev. Megan Salazar, LadanDiv. Staff Bistro Attendant * Janine Irvin RN - 03/06/2024 3:35 [...] use as able. Jose Enrique Naylor MD [facility] - Nephrology [phone] * Antonino Cheek MD - 03/06/2024 7:30 AM CDT [facility] Medicine Progress Note - Hospitalist [...] the patient was re cently hospitalized at [facility] from 02/23 to 02/25 for the treatment [...] with Mother and Aunt (who is his AFRICANA STUDIES PROFESSOR) Hx of CVA Legally Blind Hypertension Hyperlipidemia [...] 2-4 Days Antonino Cheek MD Hospitalist Service [facility] Securely message with Dealo (more info) Text page via [facility] Paging/Directory Interval History Patient denies symptoms but [...] Pulse: 89 Resp: 18 SpO2: 98 % R1Kltrrj: BiPAP/CPAP Weight: 185 lbs 13.56 oz GEN: [...] Paged to Dr. Cheek. Paul Rasmussen MD [facility] * Jose Enrique Naylor [...] given low sodium Jose Enrique Naylor MD [facility] - Nephrology [phone] Interval History : Seen / examined. Appears [...] and thrill Labs: All labs reviewed by in Electrolytes/Renal - Recent Labs Lab Test 03/05/24 [...] - 03/05/2024 8:33 AM CDT [facility] Medicine Progress Note - Hospitalist Service [...] the patient was re cently hospitalized at [facility] from 02/23 to 02/25 for the treatment [...] with Mother and Aunt (who is his AFRICANA STUDIES PROFESSOR) Hx of CVA Legally Blind Hypertension Hyperlipidemia [...] 2-4 Days Antonino Cheek MD Hospitalist Service [facility] Securely message with Dealo (more info) Text page via [facility] Paging/Directory Interval History Patient is not significantly [...] 24 hour(s)). * Graham Enciso, RT - 03/04/2024 11:21 PM CDT A [...] Recheck INR tomorrow AM. Paul Rasmussen MD [facility] - Digestive Health [phone] SUBJECTIVE: Denies pain or new symptoms OBJECTIVE: [...] Romero DO - 03/04/2024 10:01 AM CDT [facility] Hospitalist Progress Note Name: Herminio Victor [...] note, the patient was recently hospitalized at [facility] from 02/23 to 02/25 for the treatment [...] improves with food today. Updated Aunt and AFRICANA STUDIES PROFESSOR Thelma via phone. All questions answered. Problem [...] with Mother and Aunt (who is his AFRICANA STUDIES PROFESSOR) Hx of CVA Legally Blind Hypertension Hyperlipidemia [...] dextrose 10% infusion Intravenous Continuous Aashish Romero, DO 40 mL/hr at 03/04/24 0901 Rate Verify at 03/04/24 0901 Current Facility-Administered Medications Medication Dose Route Frequency Provider Last Rate Last Admin - MEDICATION INSTRUCTIONS for Dialysis Patients - Does not apply See Admin Instructions Aashish Romero, DO atorvastatin (LIPITOR) tablet 20 mg 20 [...] the past 24 hour(s)). Aashish Romero DO [facility] Hospitalist [address] [facility] [place] [address] Securely message with Dealo (more info) Text page via [facility] Paging/Directory 03/04/2024 * Douglas Zarate RT - 03/03/2024 10:20 PM CDT Auto CPAP 5/15 @ 21% was applied to the pt via the mask for NOC use. The bridge of the nose looks good and remains intact. Pt is tolerating it well. Will continue to monitor and assess the pt's current respiratory status and needs. RT Mariluz on 03/03/2024 at 10:21 PM * Nick Aashish Avina, - 03/03/2024 12:46 PM CDT [facility] Hospitalist Progress Note Name: Herminio Victor [...] note, the patient was recently hospitalized at [facility] from 02/23 to 02/25 for the treatment [...] with Mother and Aunt (who is his AFRICANA STUDIES PROFESSOR) Hx of CVA Legally Blind Hypertension Hyperlipidemia [...] the past 24 hour(s)). Aashish Romero DO [facility] [place] [address] Securely message with Dealo (more info) Text page via [facility] Paging/Directory 03/03/2024 * Bella Argueta RN - 03/03/2024 10:46 AM CDT DATE/TIME OF CALL RECEIVED FROM LAB: 03/03/24 at 10:47 AM LAB TEST: blood glucose LAB VALUE: 56 PROVIDER NOTIFIED?: Yes PROVIDER NAME: Dr. Delfin Romero DATE/TIME LAB VALUE REPORTED TO PROVIDER: 1030 MECHANISM OF PROVIDER NOTIFICATION: Jzzt-Sn-Pnkm PROVIDER RESPONSE: Administer IV Dextrose and recheck blood glucose in 15 minutes ++++++++++++++++++++++++++++++++++++ DATE/TIME OF CALL RECEIVED FROM LAB: 03/03/24 at 11:15 am LAB TEST: Blood glucose LAB VALUE: 39 PROVIDER NOTIFIED?: Yes PROVIDER NAME: Delfin Romero DATE/TIME LAB VALUE REPORTED TO PROVIDER: 03/03/24 at 11:18 am MECHANISM OF PROVIDER NOTIFICATION: Mrnl-Vw-Ppwx PROVIDER RESPONSE: Additional IV dose of Dextrose [...] Tripathi MD - 03/02/2024 4:41 PM CDT [facility] History and Physical - Hospitalist Service [...] has memory issues and onto his primary AFRICANA STUDIES PROFESSOR. Per aunt, patient always had cognitive deficits [...] 2-4 Days Ron Tripathi MD Hospitalist Service [facility] Securely message with Dealo (more info) Text page via [facility] Paging/Directory Chief Complaint Melanotic stools. History is [...] ESRD (end stage renal disease) (H) dialysis T--[facility] History of staph septicemia 12/20/2015 Hyperkalemia [...] EXTREMITY 08/09/2012 Procedure: THROMBECTOMY LOWER EXTREMITY;; Surgeon: Jxaon Buenrostro MD; Location: [facility] OR Prior to Admission Medications Prior to Admission Medications Prescriptions Last Dose Informant Patient Reported? Taking? 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 Yes No Sig: Take 10 mg by [...] past 24 hours: Patient, ER physician and patient'darion Renee Data I have personally reviewed the [...] PM CDTAssociated Order(s): Single Lumen Midline Placement [facility] Single Lumen Midline Placement Date/Time: [...] the procedure a time out was called [place] Protocol: the Joint Commission [place] Protocol was followed Preparation: Patient was prepped [...] type: non-valved Catheter size: 4 Fr Brand: [employer] Lot number: [id number] Placement method: venipuncture, MST and ultrasound Number [...] Lopez RDN, LD Clinical Dietitian 3rd floor/ICU: [phone] All other floors: [phone] Weekend/holiday: [phone] Office: [phone] * Job Her MD - 03/04/2024 12:38 [...] file Other Topics Concern Parent/sibling w/ CABG, CO or angioplasty before 65F 55M? Not Asked Social History Narrative Not on file Social Determinants of Health Financial Resource Strain: Low Risk (06/23/2022) Received from [facility] Financial Resource Strain Difficulty of Paying Living Expenses: 3 Difficulty of Paying Living Expenses: Not on file Food Insecurity: No Food Insecurity (06/23/2022) Received from [facility] Food Insecurity Worried About Running Out of Food in the Last Year: 1 Transportation Needs: No Transportation Needs (06/23/2022) Received from [facility] Transportation Needs Lack of Transportation (Medical): 1 Physical Activity: Not on file Stress: Not on file Social Connections: Unknown (06/24/2023) Received from [facility] Social Connections Frequency of Communication with Friends and Family: Not on file Interpersonal Safety: Not on file Housing Stability: Low Risk (06/23/2022) Received from [facility] Housing Stability Unable to Pay for [...] hold heparin with HD [facility] Office Pager: [phone] * Paul Rasmussen MD - 03/03/2024 3:58 PM CDTAssociated Order(s): GASTROENTEROLOGY IP CONSULT Images from the original note were not included. GASTROENTEROLOGY CONSULTATION Herminio Victor [address] [place] [phone] 58 year old male Admission Date/Time: 03/02/2024 [...] restart based on course. Paul Rasmussen MD [facility] - Digestive Health [phone] HPI: Herminio Victor is a 58 year [...] evening 12/19/17 Yes Estrella Guillen MD B Mujczjb-L-Xtqkw Acid (WESCAPS PO) Take 1 capsule by [...] Support: Care provided by: other (see comments) (AFRICANA STUDIES PROFESSOR- aunt Thelma) Provides care for: no one, [...] Insecurity: No Food Insecurity (06/23/2022) Received from [facility] Food Insecurity Worried About Running Out of Food in the Last Year: 1 Depression: Not at risk (05/22/2020) Received from [facility] PHQ-2 PHQ-2 Score: 0 Housing Stability: Low Risk (06/23/2022) Received from [facility] Housing Stability Unable to Pay for Housing in the Last Year: 1 Tobacco Use: Low Risk (02/25/2024) Patient History Smoking Tobacco Use: Never Smokeless Tobacco Use: Never Passive Exposure: Not on file Financial Resource Strain: Low Risk (06/23/2022) Received from [facility] Financial Resource Strain Difficulty of Paying Living Expenses: 3 Difficulty of Paying Living Expenses: Not on file Alcohol Use: Not on file Transportation Needs: No Transportation Needs (06/23/2022) Received from [facility] Transportation Needs Lack of Transportation (Medical): 1 Physical Activity: Not on file Interpersonal Safety: Not on file Stress: Not on file Social Connections: Unknown (06/24/2023) Received from [facility] Social Connections Frequency of Communication with [...] mother and aunt. His aunt is his AFRICANA STUDIES PROFESSOR and has 40 hours per week.He receives assistance with all ADL's and IADL's except eating. He is legally blind so he needs assistance with ambulating, positioning and transfers too. He ambulates without any assistive devices.He receives Dialysis on MWF at [facility] in [place] per his aunt report.His transportation company [employer] in [place]. Their Phone number is [phone] and they are open M-F , 7 AM to 5 pm. CM will monitor for any discharge needs. Laura Bird RN, BSN, CM Inpatient Care Coordination [facility] [phone] documented in this encounter ED Notes * Albina Sneed RN - 03/02/2024 5:43 PM CDT [facility] ED Nurse Handoff Report ED Chief complaint: Generalized Weakness . ED Diagnosis: Final diagnoses: Anemia, unspecified type Black stool Allergies: Allergies Allergen Reactions Dihydroxyaluminum Aminoacetate Nausea GI bleeding Aspirin GI Disturbance and Rash PN: LW Reaction: unknown Code Status: Full Code Activity level - Baseline/Home: lift. Activity Level - Current: bed Lift room needed: No. Bariatric: No Product Communications Manager Needed: No Isolation: No. Infection: Not [...] Component Type Red Blood Cells Product Code Y5235J52 Unit Status Transfused Unit Number [id number] CROSSMATCH Compatible CODING SYSTEM [id number] ISSUE DATE AND TIME [id number] UNIT ABO/RH O+ UNIT TYPE ISBT 5100 PREPARE RED BLOOD CELLS (UNIT) Blood Component Type Red Blood Cells Product Code X8058E10 Unit Status Ready for issue Unit Number [id number] CROSSMATCH Compatible CODING SYSTEM [id number] PREPARE RED BLOOD CELLS (UNIT) TRANSFUSE RED [...] Lilibeth Ray, RN 5:43 PM * Malka Larios, LINDA - 03/02/2024 2:14 PM CDT Pt sent [...] time: 1:38 PM Means of arrival: Comments: [facility] * Raúl Bernard MD - 03/02/2024 [...] Component Type Red Blood Cells Product Code [id number] Unit Status Ready for issue Unit Number [id number] CROSSMATCH Compatible CODING SYSTEM [id number] PREPARE RED BLOOD CELLS (UNIT) Blood Component Type Red Blood Cells Product Code [id number] Unit Status Ready for issue Unit Number [id number] CROSSMATCH Compatible CODING SYSTEM [id number] PREPARE RED BLOOD CELLS (UNIT) ABO/RH TYPE AND SCREEN EKG ECG taken at 1400, ECG read at 1403 Sinus rhythm with 1st degree AV block Inferior infarct, age undetermined No significant change when compared to prior, dated 02/24/24. Rate 82 bpm. LA interval 210 ms. QRS duration 88 ms. [...] / Diagnosis [facility] Diagnoses: None MIPS None MDM Herminio Victor [...] 03/02/2024 to document services personally performed by Rúal Bernard MD based on my observations and the provider's statements to me. Scribe Disclosure: I, LAVINIA ENRIQUEZ, am serving as a scribe aed trainer at 2:09 PM on 03/02/2024 to document services personally performed by Raúl Bernard MD based on my observations and the provider's statements to me. Raúl Bernard MD 03/02/242156 Raúl Bernard MD 05/24/24 2158 documented in this encounter Miscellaneous Notes * [...] pt. * Pharmacy-Anticoagulation Service - Ryann Armando [facility] - 03/12/2024 2:15 PM CDT Images from the original note were not included. 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 INR Goal= 2-3. Warfarin TENTERER Regimen: 5mg M-F Anticoagulation Dose History More [...] 6:47 AM CDT Assumed care Assumed care [id number]. A&Ox3, disoriented to time and can be [...] Documentation Taken 03/11/2024 1950 by Harriett Jacobsen RN Medication Review/Management: medications [...] Treatment Plan: Q12 Hgb checks. Monitor BG, [facility] dialysis Bedside Nurse: Raul Carter RN Problem: Adult Inpatient Plan of Care Goal: Plan of Care Review Description: The Plan of Care Review/Shift note should be completed every shift. The Outcome Evaluation is a brief statement about your assessment that the patient is improving, declining, or no change. This information will be displayed automatically on your shift note. Outcome: Progressing Flowsheets (Taken 03/11/2024 2611) Outcome Evaluation: Bp controlled w/ scheduled meds. [...] Manage Fall Risk Recent Flowsheet Documentation Taken 03/11/2024 0836 by Raul Carter RN Safety Promotion/Fall Prevention: [...] and Manage Glycemia Recent Flowsheet Documentation Taken 03/11/2024 0836 by Raul Carter stagecraft professor Review/Management: medications reviewed Goal: Blood Pressure in Desired Range Outcome: Progressing Intervention: Maintain Blood Pressure Management Recent Flowsheet Documentation Taken 03/11/2024 0836 by Raul Carter RN Medication Review/Management: medications reviewed * Plan of Care - Harriett Jacobsen RN - 03/11/2024 5:48 AM CDT Assumed care [phone]. A&Ox4, but can be confused intermittently. On RA and cpap at night. On a renal diet and needs help ordering/tray set-up. Has midline to L arm that is saline locked. Got 1 unit of blood. BG checks: 148, 120, 94. APPOINTMENT CLERK called overnight, see progress notes from field underwriter, , and respiratory. Denies pain. Plan of [...] Flowsheet Documentation Taken 03/10/20242319 by Harriett Jacobsen stagecraft professor Review/Management: medications reviewed Problem: Adult Inpatient Plan [...] Date/Time: 03/11/2024 0241 Mechanism of Provider Notification: Dealo messaging Purpose of Notification: FYI- Patient got [...] Progressing * Pharmacy-Anticoagulation Service - Nivia Mahan RPH - 03/10/2024 12:35 PM CDT Clinical Pharmacy - Warfarin Dosing Consult Pharmacy has been consulted to manage this patient???s warfarin therapy. Indication: DVT/ PE Treatment Therapy Goal: INR 2-3 Warfarin Prior to Admission: Yes Warfarin TENTERER Regimen: 5mg M-F Dose Comments: 5mg today [...] shift note. Outcome: Progressing Flowsheets (Taken 03/09/2024 5557) Outcome Evaluation: Hgb 7.6 with recheck Goal: [...] Recent Flowsheet Documentation Taken 03/09/2024 0810 by aMeve Shipley RN Safety Promotion/Fall Prevention: safety round/check [...] Flowsheet Documentation Taken 03/08/20241823 by Diego Osei steam tender Interventions: declines Goal: Readiness for Transition [...] shift note. Outcome: Progressing Flowsheets (Taken 03/08/2024 5845) Outcome Evaluation: 1 unit of blood given. [...] ESRD (end stage renal disease) (H) dialysis [facility] History of staph septicemia 12/20/2015 Hyperkalemia [...] 30 tablet 3 03/01/2024 at PM B Kxftoix-Y-Uvhbk Acid (WESCAPS PO) Take 1 capsule by [...] shift note. Outcome: Progressing Flowsheets (Taken 03/07/2024 182) Outcome Evaluation: No BM this shift. VSS, [...] and complete assessments, please see documentation flowsheets. [phone] Pertinent assessments:Pt disoriented to time & situation [...] overnight. * Plan of Care - Mann Clakr RN - 03/06/2024 11:53 PM CDT Assessments: A/Ox3. VSS. On capno 3L O2/nc. Assist x1 with walker & gait belt, not OOB during shift. Incontinent of BM x1. Dextrose infusing at 40mls. Tolerated diet, no n/v. Denies pain. Major Shift Events: BG of 36 at upon arrival from PACU, APPOINTMENT CLERK called. PRN D50% 50ml given via IV. [...] and complete assessments, please see documentation flowsheets. [phone] Pertinent assessments:Pt disoriented to time. CPAP in [...] Fall Risk Recent Flowsheet Documentation Taken 03/05/2024 0820 by Bárbara Arana RN Safety Promotion/Fall Prevention: [...] and complete assessments, please see documentation flowsheets. [phone] Pertinent assessments: Pt disoriented to time. CPAP [...] shift note. Outcome: Progressing Flowsheets (Taken 03/05/2024 0591) Outcome Evaluation: Denies pain, Cpap in place [...] shift note. Outcome: Progressing Flowsheets (Taken 03/04/2024 5360) Outcome Evaluation: BG stable Plan of Care [...] carb diet Treatment Plan: clears tomorrow and CONTACT LENS FITTER at midnight for colonoscopy and EGD, monitor [...] Documentation Taken 03/04/2024399 by Zulema Parr, LINDA Safety Promotion/Fall Prevention: supervised activity safety round/check [...] - 03/03/2024 3:08 PM CDT Cared for [id number] Pt Alert to self (cognitive delay; visually [...] RN Outcome: Not Progressing Flowsheets (Taken 03/03/2024 150) Outcome Evaluation: Patient blood glucose levels untable - MD aware, see new orders Plan of Care Reviewed With: patient Overall Patient Progress: no change 03/03/2024 1506 by Bella Argueta RN Outcome: Not Progressing Flowsheets (Taken 03/03/2024 150) Outcome Evaluation: Patient blood glucose levels unstable [...] Outcome: Not Progressing 03/03/2024 1506 by Bella Argueat RN Outcome: Not Progressing Goal: Readiness for [...] phone Pertinent Information: None Changes made to TENTERER medication list: Added: Senna Deleted: Bisacodyl, Lisinopril (Thelma states she was told to stop giving this last week) Changed: None Allergies reviewed with patient and updates made in EHR: no Medication History Completed By: Quang Gee RPH 03/02/2024 5:32 PM TENTERER Med List Medication Sig Last Dose amLODIPine (NORVASC) 5 MG tablet Take 5 mg by mouth daily 03/02/2024 at AM atorvastatin (LIPITOR) 20 MG tablet Take 1 tablet (20 mg) by mouth every evening 03/01/2024 at PM B Kheebuw-Y-Zpxbc Acid (WESCAPS PO) Take 1 capsule by [...] Description 07/05/2024 1:15 PM CDT Office Visit [address] [address] Lizandro Barron MD [phone] [id number] documented as of this encounter Procedures Procedure [...] Glucose by meter (03/12/2024 12:00 PM CDT) [facility] GLUCOSE BY METER POCT 92 70 - 99 mg/dL 03/12/2024 12:10 PM CDT LABORATORY POC Blood, Capillary BLOOD SPECIMEN / Unknown 03/12/2024 12:00 PM CDT 03/12/2024 12:10 PM CDT Ron HERNANDEZ POCT LABORATORY [facility] [address] [facility] Lab (1st floor, no room number) [place] [address], [facility] * Glucose by meter (03/12/2024 7:51 AM CDT) GLUCOSE BY METER POCT 92 70 - 99 mg/dL 03/12/2024 7:58 AM CDT RH LABORATORY POC Blood, Capillary BLOOD SPECIMEN / Unknown 03/12/2024 7:51 AM CDT 03/12/2024 7:58 AM CDT Ron Tripathi MD LAB - BEAKER POCT LABORATORY [facility] [address] Lab (1st floor, no room number) [place] [address], [facility] * Glucose (03/12/2024 6:06 AM CDT) Glucose 77 70 - 99 mg/dL 03/12/2024 6:35 AM CDT RH LABORATORY Blood STRUCTURE OF RIGHT UPPER LIMB / Unknown Venipuncture / Unknown 03/12/2024 6:06 AM CDT 03/12/2024 6:10 AM CDT Ron Tripathi MD LAB - BLOOD ORDERABL ES Performing Organization Address [facility]/ZIP Co de Phone Number [facility] [address] Lab (1st floor, no room number) [place] [address] * (ABNORMAL) Hemoglobin (03/12/2024 6:06 AM CDT) Hemoglobin 8.1(L) 13.3 - 17.7 g/dL 03/12/2024 6:14 AM CDT RH LABORATORY Blood STRUCTURE OF RIGHT UPPER LIMB / Unknown Venipuncture / Unknown 03/12/2024 6:06 AM CDT 03/12/2024 6:10 AM CDT Aashish Romero DO LAB - BLOOD ORDER NADIA [facility] [address] Lab (1st floor, no room number) [place] [address], [facility] * (ABNORMAL) Renal panel (03/12/2024 6:06 [...] - BLOOD ORDERA BLES Performing Organization Address City/[facility]/ZIP Co de Phone Number [facility] Lab [address] Lab (1st floor, no room number) [place] [phone] * (ABNORMAL) INR (03/12/2024 6:06 AM CDT) INR 1.20(H) 0.85 - 1.15 03/12/2024 6:25 AM CDT RH LABORATORY Blood STRUCTURE OF RIGHT UPPER LIMB / Unknown Venipuncture / Unknown 03/12/2024 6:06 AM CDT 03/12/2024 6:10 AM CDT Eileen Earl MD LAB - BLOOD KIMA EMMA Performing Organization Address [facility]/ZIP Co de Phone Number [facility] [address] Lab (1st floor, no room number) [place] [phone] * (ABNORMAL) Glucose by meter (03/12/2024 1:55 AM CDT) GLUCOSE BY METER POCT 107(H) 70 - 99 mg/dL 03/12/2024 2:01 AM CDT LABORATORY POC Blood, Capillary BLOOD SPECIMEN / Unknown 03/12/2024 1:55 AM CDT 03/12/2024 2:01 AM CDT Ron Tripathi MD LAB - BEAKER POCT Performing Organization Address City/[facility]/ZIP Co de Phone Number LABORATORY [facility] [address] Lab (1st floor, no room number) [place] [phone] * (ABNORMAL) Glucose by meter (03/11/2024 9:11 PM CDT) GLUCOSE BY METER POCT 132(H) 70 - 99 mg/dL 03/11/2024 9:18 PM CDT RH LABORATORY POC Blood, Capillary BLOOD SPECIMEN / Unknown 03/11/2024 9:11 PM CDT 03/11/2024 9:18 PM CDT Ron DEAN - DAVID POCT LABORATORY [facility] Lab [address] Lab (1st floor, no room number) [place] [address], [facility] * (ABNORMAL) Hemoglobin (03/11/2024 6:10 PM CDT) Hemoglobin 8.8(L) 13.3 - 17.7 g/dL 03/11/2024 6:22 PM CDT RH LABORATORY Blood STRUCTURE OF RIGHT UPPER LIMB / Unknown Venipuncture / Unknown 03/11/2024 6:10 PM CDT 03/11/2024 6:20 PM CDT Aashish Romero DO LAB - BLOOD ORDER NADIA Performing Organization Address City/[facility]/ZIP Co de Phone Number [facility] [address] Lab (1st floor, no room number) [place] [address], [facility] * (ABNORMAL) Glucose by meter (03/11/2024 5:31 PM CDT) GLUCOSE BY METER POCT 144(H) 70 - 99 mg/dL 03/11/2024 5:39 PM CDT LABORATORY POC Blood, Capillary BLOOD SPECIMEN / Unknown 03/11/2024 5:31 PM CDT 03/11/2024 5:39 PM CDT Ron HERNANDEZ POCT LABORATORY [facility] Lab [address] Lab (1st floor, no room number) [place] [address], [facility] * (ABNORMAL) Glucose by meter (03/11/2024 11:47 AM CDT) GLUCOSE BY METER POCT 117(H) 70 - 99 mg/dL 03/11/2024 11:54 AM CDT RH LABORATORY POC Blood, Capillary BLOOD SPECIMEN / Unknown 03/11/2024 11:47 AM CDT 03/11/2024 11:54 AM CDT Narrative Authorizing Provider Result Lauren DEAN - BEAKER POCT Performing Organization Address City/[facility]/ZIP Co de Phone Number LABORATORY [facility] [address] Lab (1st floor, no room number) [place] [address] * Glucose by meter (03/11/2024 7:36 AM CDT) GLUCOSE BY METER POCT 81 70 - 99 mg/dL 03/11/2024 7:45 AM CDT LABORATORY POC Blood, Capillary BLOOD SPECIMEN / Unknown 03/11/2024 7:36 AM CDT 03/11/2024 7:45 AM CDT Ron DEAN - DAVID POCT Performing Organization Address [facility] Co de Phone Number LABORATORY [facility] [address] Lab (1st floor, no room number) [place] [phone] [place] [address] * (ABNORMAL) Renal panel (03/11/2024 7:03 AM [...] Earl MD LAB - BLOOD ORDERA BLES [facility] [address] Lab (1st floor, no room number) [place] [address] * INR (03/11/2024 7:03 AM CDT) INR 1.11 0.85 - 1.15 03/11/2024 7:31 AM CDT RH LABORATORY Blood STRUCTURE OF RIGHT UPPER LIMB / Unknown Venipuncture / Unknown 03/11/2024 7:03 AM CDT 03/11/2024 7:10 AM CDT Eileen Earl MD LAB - BLOOD ORDERA BLES [facility] Lab [address] Lab (1st floor, no room number) [place] [address], [facility] * (ABNORMAL) CBC with platelets (03/11/2024 7:03 AM CDT) [facility] Signature WBC Count 9.9 4.0 - 11.0 10e3/uL [...] LAB - BLOOD ORDER NADIA RH LABORATORY [facility] [address] Lab (1st floor, no room number) [place] [address], [facility] * XR Chest Port 1 View (03/11/2024 3:25 AM CDT) Anatomical Region Laterality Modality Chest Digital Radiogra phy 03/11/2024 3:25 AM CDT Impressions 03/11/2024 3:30 AM CDT IMPRESSION: Normal heart size and pulmonary vascularity. Lungs clear. No pneumothorax. Minimal fluid or thickening along the right fissure. Narrative 03/11/2024 3:30 AM CDT EXAM: XR CHEST PORT 1 VIEW LOCATION: [facility] DATE: 03/11/2024 INDICATION: Shortness of breath COMPARISON: None. Procedure Note David Díaz MD - 03/11/2024 EXAM: XR CHEST PORT 1 VIEW LOCATION: [facility] DATE: 03/11/2024 INDICATION: Shortness of [...] CDT Ron DEAN - DAVID POCT LABORATORY [facility] [address] Lab (1st floor, no room number) [place] [address] * (ABNORMAL) Glucose by meter (03/11/2024 1:57 AM CDT) GLUCOSE BY METER POCT 120(H) 70 - 99 mg/dL 03/11/2024 2:04 AM CDT LABORATORY POC Blood, Capillary BLOOD SPECIMEN / Unknown 03/11/2024 1:57 AM CDT 03/11/2024 2:04 AM CDT Ron DEAN - BEAKER POCT LABORATORY [facility] [address] Lab (1st floor, no room number) [place] [address] * CONDITIONAL Transfuse red blood cells (unit) [...] LAB - BEAKER POCT RH LABORATORY POC [facility] [address] [facility], no room number) [place] [address] * Adult Type and Screen (03/10/2024 6:53 PM CDT) ABO/RH(D) O POS 03/10/2024 6:44 PM CDT RH BLOOD BANK Antibody Screen Negative Negative 03/10/2024 6:44 PM CDT RH BLOOD BANK SPECIMEN EXPIRATION DATE [id number] 03/10/2024 6:44 PM CDT RH BLOOD BANK Blood STRUCTURE OF RIGHT UPPER LIMB / Unknown Venipuncture / Unknown 03/10/2024 6:53 PM CDT 03/10/2024 6:57 PM CDT Antonino Cheek MD LAB - BLOOD BANK SHANNON T ORDER RH BLOOD BANK [address] [place] [address] * CONDITIONAL Prepare red blood cells (unit) (03/10/2024 6:37 PM CDT) Blood Component Type Red Blood Cells RH BLOOD BANK Product Code [id number] RH BLOO D BANK Unit Status Transfused RH BLOO D BANK Unit Number [id number] RH B LOOD BANK CROSSMATCH Compatible RH BLOOD BANK CODING SYSTEM [id number] RH BLO OD BANK ISSUE DATE AND TIME [id number] RH BLOOD BANK UNIT ABO/RH O+ RH BLOOD BANK UNIT TYPE ISBT 5100 RH BL OOD BANK 03/10/2024 6:37 PM CDT Eileen Earl MD BLOOD BANK PRODUCT ORDERABLES RH BLOOD BANK [address] [place] [phone], [facility] * (ABNORMAL) Hemoglobin (03/10/2024 6:00 PM CDT) Hemoglobin 7.0(L) 13.3 - 17.7 g/dL 03/10/2024 6:09 PM CDT RH LABORATORY Blood STRUCTURE OF RIGHT UPPER LIMB / Unknown Venipuncture / Unknown 03/10/2024 6:00 PM CDT 03/10/2024 6:07 PM CDT Aashish Romero DO LAB - BLOOD ORDER NADIA Performing Organization Address City/[facility]/ZIP Co de Phone Number LABORATORY [facility] [address] Lab (1st floor, no room number) [place] [phone], [facility] * (ABNORMAL) Glucose by meter (03/10/2024 4:49 PM CDT) GLUCOSE BY METER POCT 208(H) 70 - 99 mg/dL 03/10/2024 5:05 PM CDT RH LABORATORY POC Blood, Capillary BLOOD SPECIMEN / Unknown 03/10/2024 4:49 PM CDT 03/10/2024 5:05 PM CDT Ron Tripathi MD LAB - BEAKER POCT LABORATORY POC [facility] [address] Lab (1st floor, no room number) [place] [address], [facility] * Glucose by meter (03/10/2024 2:35 PM CDT) GLUCOSE BY METER POCT 98 70 - 99 mg/dL 03/10/2024 2:43 PM CDT RH LABORATORY POC Blood, Capillary BLOOD SPECIMEN / Unknown 03/10/2024 2:35 PM CDT 03/10/2024 2:43 PM CDT Ron Tripathi MD LAB - BEAKER POCT LABORATORY [facility] [address] Lab (1st floor, no room number) [place] [address], [facility] * Glucose by meter (03/10/2024 1:28 PM CDT) GLUCOSE BY METER POCT 94 70 - 99 mg/dL 03/10/2024 1:37 PM CDT RH LABORATORY POC Blood, Capillary BLOOD SPECIMEN / Unknown 03/10/2024 1:28 PM CDT 03/10/2024 1:37 PM CDT Ron DEAN - BEXIANG POCT Performing Organization Address City/[facility]/ZIP Co de Phone Number LABORATORY [facility] Lab [address] Lab (1st floor, no room number) [place] [address], [facility] * Glucose by meter (03/10/2024 12:35 PM CDT) GLUCOSE BY METER POCT 92 70 - 99 mg/dL 03/10/2024 12:50 PM CDT LABORATORY POC Blood, Capillary BLOOD SPECIMEN / Unknown 03/10/2024 12:35 PM CDT 03/10/2024 12:50 PM CDT Ron DEAN - BEAKER POCT LABORATORY [facility] [address] Lab (1st floor, no room number) [place] [address], [facility] * (ABNORMAL) Glucose by meter (03/10/2024 11:28 AM CDT) GLUCOSE BY METER POCT 102(H) 70 - 99 mg/dL 03/10/2024 11:35 AM CDT RH LABORATORY POC Blood, Capillary BLOOD SPECIMEN / Unknown 03/10/2024 11:28 AM CDT 03/10/2024 11:35 AM CDT Ron DEAN - BEAKER POCT LABORATORY [facility] [address] Lab (1st floor, no room number) [address] [place] [address] * (ABNORMAL) Glucose by meter (03/10/2024 10:35 AM CDT) GLUCOSE BY METER POCT 133(H) 70 - 99 mg/dL 03/10/2024 10:42 AM CDT LABORATORY POC Blood, Capillary BLOOD SPECIMEN / Unknown 03/10/2024 10:35 AM CDT 03/10/2024 10:42 AM CDT Ron DEAN - DAVID POCT LABORATORY [facility] [address] Lab (1st floor, no room number) [address] [place] [address] * (ABNORMAL) Glucose by meter (03/10/2024 8:32 AM CDT) GLUCOSE BY METER POCT 105(H) 70 - 99 mg/dL 03/10/2024 8:45 AM CDT LABORATORY POC Blood, Capillary BLOOD SPECIMEN / Unknown 03/10/2024 8:32 AM CDT 03/10/2024 8:45 AM CDT Ron DEAN - DAVID POCT LABORATORY [facility] [address] Lab (1st floor, no room number) [place] [address] * (ABNORMAL) Hemoglobin (03/10/2024 7:46 AM CDT) Hemoglobin 7.0(L) 13.3 - 17.7 g/dL 03/10/2024 7:55 AM CDT LABORATORY Blood STRUCTURE OF RIGHT UPPER LIMB / Unknown Venipuncture / Unknown 03/10/2024 7:46 AM CDT 03/10/2024 7:50 AM CDT Ron Tripathi MD LAB - BLOOD ORDERABL ES LABORATORY [facility] [address] Lab (1st floor, no room number) [place] [address] * (ABNORMAL) Renal panel (03/10/2024 7:46 AM [...] Earl MD LAB - BLOOD ORDERA BLES [facility] Lab [address] Lab (1st floor, no room number) [address] * (ABNORMAL) INR (03/10/2024 7:46 AM CDT) INR 1.18(H) 0.85 - 1.15 03/10/2024 8:03 AM CDT LABORATORY Blood STRUCTURE OF RIGHT UPPER LIMB / Unknown Venipuncture / Unknown 03/10/2024 7:46 AM CDT 03/10/2024 7:50 AM CDT Eileen Earl MD LAB - BLOOD ORDERA BLES [facility] [address] Lab (1st floor, no room number) [address] * (ABNORMAL) Glucose by meter (03/10/2024 3:38 AM CDT) GLUCOSE BY METER POCT 112(H) 70 - 99 mg/dL 03/10/2024 3:44 AM CDT LABORATORY POC Blood, Capillary BLOOD SPECIMEN / Unknown 03/10/2024 3:38 AM CDT 03/10/2024 3:44 AM CDT Narrative Authorizing Provider Result Lauren DEAN - BEAKER POCT Performing Organization Address [facility]/State/ZIP Co de Phone Number LABORATORY [facility] [address] Lab (1st floor, no room number) [place] [address] * Glucose by meter (03/10/2024 12:05 AM CDT) GLUCOSE BY METER POCT 97 70 - 99 mg/dL 03/10/2024 12:11 AM CDT LABORATORY POC Blood, Capillary BLOOD SPECIMEN / Unknown 03/10/2024 12:05 AM CDT 03/10/2024 12:11 AM CDT Narrative Authorizing Provider Result Lauren DEAN - BEAKER POCT Performing Organization Address [facility]/ZIP Co de Phone Number LABORATORY [facility] [address] Lab (1st floor, no room number) [place] [address], [facility] * (ABNORMAL) Hemoglobin (03/09/2024 11:50 PM CDT) Hemoglobin 7.5(L) 13.3 - 17.7 g/dL 03/09/2024 11:57 PM CDT LABORATORY Blood STRUCTURE OF RIGHT HAND / Unknown Venipuncture / Unknown 03/09/2024 11:50 PM CDT 03/09/2024 11:53 PM CDT Narrative Authorizing Provider Result Lauren Tripathi MD LAB - BLOOD ORDERABL ES Performing Organization Address [facility]/ZIP Co de Phone Number [facility] [address] Lab (1st floor, no room number) [place] [phone], [facility] * (ABNORMAL) Glucose by meter (03/09/2024 8:25 PM CDT) GLUCOSE BY METER POCT 159(H) 70 - 99 mg/dL 03/09/2024 8:32 PM CDT RH LABORATORY POC Blood, Capillary BLOOD SPECIMEN / Unknown 03/09/2024 8:25 PM CDT 03/09/2024 8:32 PM CDT Narrative Authorizing Provider Result Laurne DEAN - BEAKER POCT LABORATORY [facility] [address] Lab (1st floor, no room number) [place] [phone] * (ABNORMAL) Hemoglobin (03/09/2024 7:13 PM CDT) Hemoglobin 7.6(L) 13.3 - 17.7 g/dL 03/09/2024 7:27 PM CDT LABORATORY Blood VENOUS LINE / Unknown Venipuncture / Unknown 03/09/2024 7:13 PM CDT 03/09/2024 7:25 PM CDT Narrative Authorizing Provider Result Lauren Tripathi MD LAB - BLOOD ORDERABL ES [facility] [address] Lab (1st floor, no room number) [place] [address] * (ABNORMAL) Glucose by meter (03/09/2024 4:12 PM CDT) GLUCOSE BY METER POCT 147(H) 70 - 99 mg/dL 03/09/2024 4:19 PM CDT LABORATORY POC Blood, Capillary BLOOD SPECIMEN / Unknown 03/09/2024 4:12 PM CDT 03/09/2024 4:19 PM CDT Narrative Authorizing Provider Result Lauren DEAN - BEAKER POCT LABORATORY [facility] [address] Lab (1st floor, no room number) [place] [address] * (ABNORMAL) Hemoglobin (03/09/2024 2:16 PM CDT) Hemoglobin 7.6(L) 13.3 - 17.7 g/dL 03/09/2024 2:43 PM CDT LABORATORY Blood VASCULAR LINE / Unknown Venipuncture / Unknown 03/09/2024 2:16 PM CDT 03/09/2024 2:29 PM CDT Ron Tripathi MD LAB - BLOOD ORDERABL ES [facility] Lab [address] Lab (1st floor, no room number) [place] [address], [facility] * (ABNORMAL) Glucose by meter (03/09/2024 1:35 PM CDT) GLUCOSE BY METER POCT 150(H) 70 - 99 mg/dL 03/09/2024 1:42 PM CDT LABORATORY POC Blood, Capillary BLOOD SPECIMEN / Unknown 03/09/2024 1:35 PM CDT 03/09/2024 1:42 PM CDT Ron Tripathi MD LAB - BEAKER POCT LABORATORY [facility] [address] Lab (1st floor, no room number) [place] [address], [facility] * Morphology Tracking (03/09/2024 9:12 AM CDT) Blood VENOUS LINE / Unknown Venipuncture / Unknown 03/09/2024 9:12 AM CDT 03/09/2024 9:26 AM CDT Antonino Cheek MD LAB - BLOOD ORDERABL ES [facility] Lab [address] Lab (1st floor, no room number) [place] [address], [facility] * (ABNORMAL) Reticulocyte count (03/09/2024 9:12 AM CDT) % Reticulocyte 2.8(H) 0.5 - 2.0 % 03/09/2024 9:33 AM CDT RH LABORATORY Absolute Reticulocyte 0.072 0.025 - 0.095 10e6/uL 03/09/2024 9:33 AM CDT RH LABORATORY Blood VENOUS LINE / Unknown Venipuncture / Unknown 03/09/2024 9:12 AM CDT 03/09/2024 9:26 AM CDT Antonino Cheek MD LAB - BLOOD ORDERABL ES RH LABORATORY [facility] Lab [address] [facility] Lab (1st floor, no room number) [place] [address] * (ABNORMAL) CBC with platelets and differential (03/09/2024 9:12 AM CDT) Pathologist [facility] WBC Count 10.1 4.0 - 11.0 10e3/uL [...] LAB - BLOOD ORDERABL ES RH LABORATORY [facility] Lab [address] Lab (1st floor, no room number) [place] [address] * Bld morphology pathology review (03/09/2024 9:12 AM CDT) Final Diagnosis Peripheral blood for morphology: -Moderate normochromic, normocytic anemia without evidence of red cell regeneration; no morphologic or laboratory features of hemolysis detected -Slight mature neutrophilia without morphologic abnormalities 03/13/2024 10:17 AM [facility] Comment Review of recent laboratory data notes normal LDH and haptoglobin. The history of GI bleeding and end-stage renal disease on hemodialysis are noted. Both conditions would contribute to the anemia present. 03/13/2024 10:17 AM [facility] Clinical Information Looking for signs of hemolysis 03/13/2024 10:17 AM [facility] Peripheral Smear ERYTHROCYTES: The hemoglobin [...] than 50: Marked thrombocytopenia 03/13/2024 10:17 AM [facility] Performing Labs The technical component of this testing was completed at [facility] and [facility] 03/13/2024 10:17 AM CDT [facility] LAB Blood VENOUS LINE / [...] Cheek MD LAB - BEAKER AP [facility] PATHOLOGY LAB [facility] Lab [address], [address] [place] [address] * Haptoglobin (03/09/2024 9:12 AM CDT) Haptoglobin 127 30 - 200 mg/dL 03/10/2024 1:23 AM CDT [facility] LABORATORY Blood VENOUS LINE / Unknown Venipuncture / Unknown 03/09/2024 9:12 AM CDT 03/09/2024 9:26 AM CDT Antonino Cheek MD LAB - BLOOD ORDERABL ES [facility] LABORATORY [facility] [address] [place] [address] * Bilirubin Direct and Total (03/09/2024 9:12 [...] Performing Organization Address City/[facility]/ZIP Co de Phone Number [facility] Lab [address] Lab (1st floor, no room number) [address] * Lactate Dehydrogenase (03/09/2024 9:12 AM CDT) Lactate Dehydrogenase 226 0 - 250 U/L 03/09/2024 9:59 AM CDT LABORATORY Blood VENOUS LINE / Unknown Venipuncture / Unknown 03/09/2024 9:12 AM CDT 03/09/2024 9:26 AM CDT Antonino Cheek MD LAB - BLOOD ORDERABL ES Performing Organization Address [facility]/ZIP Co de Phone Number [facility] [address] Lab (1st floor, no room number) [address] * INR (03/09/2024 9:12 AM CDT) INR 1.13 0.85 - 1.15 03/09/2024 9:41 AM CDT LABORATORY Blood VENOUS LINE / Unknown Venipuncture / Unknown 03/09/2024 9:12 AM CDT 03/09/2024 9:26 AM CDT Eileen Earl MD LAB - BLOOD ORDERA BLES [facility] Lab [address] Lab (1st floor, no room number) [address] * Glucose by meter (03/09/2024 7:55 AM CDT) GLUCOSE BY METER POCT 91 70 - 99 mg/dL 03/09/2024 8:04 AM CDT RH LABORATORY POC Comment:Dr/RN Notified Blood, Capillary BLOOD SPECIMEN / Unknown 03/09/2024 7:55 AM CDT 03/09/2024 8:04 AM CDT Ron Tripathi MD LAB [facility] Lab [address] Lab (1st floor, no room number) [place] [address], [facility] * (ABNORMAL) Renal panel (03/09/2024 5:49 AM [...] MD LAB - BLOOD ORDERA BLES LABORATORY [facility] Lab [address] Lab (1st floor, no room number) [place] [address] * (ABNORMAL) Hemoglobin (03/09/2024 5:49 AM CDT) Hemoglobin 7.5(L) 13.3 - 17.7 g/dL 03/09/2024 6:00 AM CDT LABORATORY Blood VENOUS LINE / Unknown Venipuncture / Unknown 03/09/2024 5:49 AM CDT 03/09/2024 5:57 AM CDT Ron Tripathi MD LAB - BLOOD ORDERABL ES Performing Organization Address [facility]/ZIP Co de Phone Number LABORATORY [facility] Lab [address] Lab (1st floor, no room number) [place] [address] * (ABNORMAL) Glucose by meter (03/09/2024 4:31 AM CDT) GLUCOSE BY METER POCT 112(H) 70 - 99 mg/dL 03/09/2024 4:37 AM CDT LABORATORY POC Blood, Capillary BLOOD SPECIMEN / Unknown 03/09/2024 4:31 AM CDT 03/09/2024 4:37 AM CDT Ron Tripathi MD LAB - BEAKER POCT LABORATORY POC [facility] Lab [address] Lab (1st floor, no room number) [place] [address], [facility] * (ABNORMAL) Glucose by meter (03/09/2024 12:26 AM CDT) GLUCOSE BY METER POCT 124(H) 70 - 99 mg/dL 03/09/2024 12:32 AM CDT RH LABORATORY POC Blood, Capillary BLOOD SPECIMEN / Unknown 03/09/2024 12:26 AM CDT 03/09/2024 12:32 AM CDT Ron Tripathi MD LAB - BEAKER POCT LABORATORY [facility] Lab [address] Lab (1st floor, no room number) [place] [phone] [place] [address] * (ABNORMAL) Hemoglobin (03/08/2024 10:35 PM CDT) Hemoglobin 7.5(L) 13.3 - 17.7 g/dL 03/08/2024 10:48 PM CDT LABORATORY Blood BLOOD SPECIMEN / Unknown Venipuncture / Unknown 03/08/2024 10:35 PM CDT 03/08/2024 10:45 PM CDT Antonino Cheek MD LAB - BLOOD ORDERABL ES Performing Organization Address [facility]/ZIP Co de Phone Number [facility] [address] Lab (1st floor, no room number) [place] [phone], [facility] * (ABNORMAL) Glucose by meter (03/08/2024 10:09 PM CDT) GLUCOSE BY METER POCT 116(H) 70 - 99 mg/dL 03/08/2024 10:15 PM CDT LABORATORY POC Blood, Capillary BLOOD SPECIMEN / Unknown 03/08/2024 10:09 PM CDT 03/08/2024 10:15 PM CDT Ron Tripathi MD LAB - BEAKER POCT LABORATORY [facility] Lab [address] Lab (1st floor, no room number) [place] [phone] [place] [address] * (ABNORMAL) Glucose by meter (03/08/2024 8:11 PM CDT) GLUCOSE BY METER POCT 114(H) 70 - 99 mg/dL 03/08/2024 8:18 PM CDT RH LABORATORY POC Blood, Capillary BLOOD SPECIMEN / Unknown 03/08/2024 8:11 PM CDT 03/08/2024 8:18 PM CDT Narrative Authorizing Provider Result Lauren Tripathi MD LAB - BEAKER POCT LABORATORY [facility] Lab [address] [facility] Lab (1st floor, no room number) [address] * Glucose by meter (03/08/2024 5:59 PM CDT) GLUCOSE BY METER POCT 84 70 - 99 mg/dL 03/08/2024 6:05 PM CDT LABORATORY POC Blood, Capillary BLOOD SPECIMEN / Unknown 03/08/2024 5:59 PM CDT 03/08/2024 6:05 PM CDT Narrative Authorizing Provider Result Lauren DEAN - BEAKER POCT Performing Organization Address City/[facility]/ZIP Co de Phone Number LABORATORY [facility] Lab [address] Lab (1st floor, no room number) [place] [phone] * Glucose by meter (03/08/2024 5:28 PM CDT) GLUCOSE BY METER POCT 99 70 - 99 mg/dL 03/08/2024 5:35 PM CDT LABORATORY POC Blood, Capillary BLOOD SPECIMEN / Unknown 03/08/2024 5:28 PM CDT 03/08/2024 5:35 PM CDT Narrative Authorizing Provider Result Lauren DEAN - BEAKER POCT LABORATORY [facility] Lab [address] Lab (1st floor, no room number) [address] * Glucose by meter (03/08/2024 5:02 PM CDT) GLUCOSE BY METER POCT 79 70 - 99 mg/dL 03/08/2024 5:08 PM CDT RH LABORATORY POC Blood, Capillary BLOOD SPECIMEN / Unknown 03/08/2024 5:02 PM CDT 03/08/2024 5:08 PM CDT Ron Tripathi MD LAB - BEAKER POCT LABORATORY [facility] Lab [address] Lab (1st floor, no room number) [address] * (ABNORMAL) Glucose by meter (03/08/2024 4:36 PM CDT) GLUCOSE BY METER POCT 63(L) 70 - 99 mg/dL 03/08/2024 4:43 PM CDT LABORATORY POC Blood, Capillary BLOOD SPECIMEN / Unknown 03/08/2024 4:36 PM CDT 03/08/2024 4:43 PM CDT Narrative Authorizing Provider Result Lauren DEAN - BEXIANG POCT LABORATORY [facility] Lab [address] Lab (1st floor, no room number) [address] * (ABNORMAL) Glucose by meter (03/08/2024 3:59 PM CDT) GLUCOSE BY METER POCT 68(L) 70 - 99 mg/dL 03/08/2024 4:06 PM CDT LABORATORY POC Blood, Capillary BLOOD SPECIMEN / Unknown 03/08/2024 3:59 PM CDT 03/08/2024 4:06 PM CDT Narrative Authorizing Provider Result Lauren DEAN - BEAKER POCT LABORATORY POC [facility] Lab [address] Lab (1st floor, no room number) [address] [place] [address] * (ABNORMAL) Hemoglobin (03/08/2024 2:42 PM CDT) Hemoglobin 8.1(L) 13.3 - 17.7 g/dL 03/08/2024 3:25 PM CDT RH LABORATORY Blood VASCULAR LINE / Unknown Venipuncture / Unknown 03/08/2024 2:42 PM CDT 03/08/2024 2:58 PM CDT Antonino Cheek MD LAB - BLOOD ORDERABL ES Performing Organization Address City/[facility]/ZIP Co de Phone Number LABORATORY [facility] Lab [address] Lab (1st floor, no room number) [address] [place] [address] * (ABNORMAL) Glucose by meter (03/08/2024 2:16 PM CDT) GLUCOSE BY METER POCT 104(H) 70 - 99 mg/dL 03/08/2024 2:23 PM CDT RH LABORATORY POC Comment:Dr/RN Notified Blood, Capillary BLOOD SPECIMEN / Unknown 03/08/2024 2:16 PM CDT 03/08/2024 2:23 PM CDT Ron DEAN - BEXIANG POCT LABORATORY POC [facility] Lab [address] Lab (1st floor, no room number) [place] [phone] * (ABNORMAL) Glucose by meter (03/08/2024 1:56 PM CDT) GLUCOSE BY METER POCT 52(L) 70 - 99 mg/dL 03/08/2024 2:03 PM CDT RH LABORATORY POC Blood, Capillary BLOOD SPECIMEN / Unknown 03/08/2024 1:56 PM CDT 03/08/2024 2:03 PM CDT Ron DEAN - BEAKER POCT Performing Organization Address [facility] Co de Phone Number LABORATORY [facility] Lab [address] [facility] Lab (1st floor, no room number) [place] [address] * (ABNORMAL) Glucose by meter (03/08/2024 1:36 PM CDT) GLUCOSE BY METER POCT 69(L) 70 - 99 mg/dL 03/08/2024 1:49 PM CDT LABORATORY POC Blood, venous BLOOD SPECIMEN / Unknown 03/08/2024 1:36 PM CDT 03/08/2024 1:49 PM CDT Ron DEAN - DAVID POCT Performing Organization Address [facility] de Phone Number LABORATORY [facility] Lab [address] [facility] Lab (1st floor, no room number) [place] [address] * Surgical Pathology Exam (03/08/2024 1:26 PM CDT) Case Report Surgical Pathology Report ? Case: [id number] ? Authorizing Provider: ??Eileen Earl MD ?Collected: ? 03/08/2024 01:26 PM ? Ordering Location: ? [facility] ?Received: ?03/08/2024 02:01 PM ? [facility] [place] ? Pathologist: ? Jae Cardona MD ? Specimen: ?Rectum, Rectum polyp ? 03/09/2024 10:13 AM [facility] Final Diagnosis Rectum, polypectomy: --Hyperplastic polyp. 03/09/2024 10:13 AM [facility] Clinical Information Procedure: Colonoscopy with polypectomy by cold biopsy forceps Pre-op Diagnosis: Anemia, unspecified type [D64.9] Post-op Diagnosis: D64.9 - Anemia, unspecified type [ICD-10-CM] 03/09/2024 10:13 AM [facility] Gross Description A(1). Rectum, Rectum polyp: The specimen is received in formalin, labeled with the patient's name, medical record number and other identifying information and designated ? rectum polyp? . It consists of 2 english soft tissue fragments ranging from 0.1-0.4 cm. Entirely submitted in one cassette. MARY Gates(ASCP)CM 03/08/2024 2:57 PM 03/09/2024 10:13 AM [facility] Microscopic Description Microscopic examination was performed. 03/09/2024 10:13 AM [facility] Performing Labs The technical component of this testing was completed at [facility]. Stain controls for all stains resulted within this report have been reviewed and show appropriate reactivity. 03/09/2024 10:13 AM [facility] Case Images 03/09/2024 10:13 AM CDT LABORATORY Polyp RECTUM PART / Unknown 03/08/2024 1:26 PM CDT 03/08/2024 2:01 PM CDT Eileen DEAN - DAVID [facility] Organization Address City/State/ZIP Co de Phone Number LABORATORY [facility] Lab [address] Lab (1st floor, no room number) [place] [address] * COLONOSCOPY (03/08/2024 1:04 PM CDT) [facility] Signature COLONOSCOPY [facility] Patient Name: Herminio Victor ? [...] continuously. The ?Olympus Adult Colonoscope, Model # [id number], ?Censitrac # [id number] was introduced through the ?anus and advanced [...] Note Initiated On: 03/08/2024 1:04 PM MRN: ?[id number] Procedure Date: ? 03/08/2024 1:04:50 PM Scope [...] Tripathi MD LAB - BEAKER POCT LABORATORY [facility] Lab [address] Lab (1st floor, no room number) [place] [address] * (ABNORMAL) Glucose by meter (03/08/2024 11:11 AM CDT) GLUCOSE BY METER POCT 65(L) 70 - 99 mg/dL 03/08/2024 11:17 AM CDT LABORATORY POC Blood, Capillary BLOOD SPECIMEN / Unknown 03/08/2024 11:11 AM CDT 03/08/2024 11:17 AM CDT Ron Tripathi MD LAB - BEXIANG POCT Performing Organization Address [facility] Co de Phone Number LABORATORY [facility] Lab [address] Lab (1st floor, no room number) [place] [phone] * CONDITIONAL Transfuse red blood cells (unit) 1; No special requirements (03/08/2024 10:44 AM CDT) Eileen Earl MD BLOOD TRANSFUSION ORDERABLES * Glucose by meter (03/08/2024 8:50 AM CDT) GLUCOSE BY METER POCT 85 70 - 99 mg/dL 03/08/2024 8:56 AM CDT LABORATORY POC Blood, Capillary BLOOD SPECIMEN / Unknown 03/08/2024 8:50 AM CDT 03/08/2024 8:56 AM CDT Ron Tripathi MD LAB - BEXIANG POCT LABORATORY [facility] Lab [address] [facility] Lab (1st floor, no room number) [place] [address] * CONDITIONAL Prepare red blood cells (unit) (03/08/2024 7:50 AM CDT) Blood Component Type Red Blood Cells RH BLOOD BANK Product Code [id number] RH BLOO D BANK Unit Status Transfused RH BLOO D BANK Unit Number [id number] RH B LOOD BANK CROSSMATCH Compatible RH BLOOD BANK CODING SYSTEM [id number] RH BLO OD BANK ISSUE DATE AND TIME [id number] RH BLOOD BANK UNIT ABO/RH O+ RH BLOOD BANK UNIT TYPE ISBT 5100 RH BL OOD BANK 03/08/2024 7:50 AM CDT Eileen Earl MD BLOOD BANK PRODUCT ORDERABLES RH BLOOD BANK [address] [place] [address] * (ABNORMAL) Renal panel (03/08/2024 6:25 AM [...] - 107 mmol/L 03/08/2024 7:18 AM CDT RH LABORATORY Carbon Dioxide (CO2) 26 22 - 29 mmol/L 03/08/2024 7:18 AM CDT RH LABORATORY Anion Gap 13 7 - 15 mmol/L 03/08/2024 7:18 AM CDT RH LABORATORY Glucose 107(H) 70 - 99 mg/dL [...] Earl MD LAB - BLOOD ORDERA BLES [facility] Care Lab [address] Lab (1st floor, no room number) [place] [phone] [place] [address] * (ABNORMAL) INR (03/08/2024 6:25 AM CDT) INR 1.18(H) 0.85 - 1.15 03/08/2024 7:03 AM CDT LABORATORY Blood STRUCTURE OF RIGHT UPPER LIMB / Unknown Venipuncture / Unknown 03/08/2024 6:25 AM CDT 03/08/2024 6:39 AM CDT Eileen Earl MD LAB - BLOOD ORDERA BLES [facility] Lab [address] Lab (1st floor, no room number) [place] [address] * (ABNORMAL) Hemoglobin (03/08/2024 6:25 AM CDT) Hemoglobin 6.7(LL) 13.3 - 17.7 g/dL 03/08/2024 7:01 AM CDT LABORATORY Blood STRUCTURE OF RIGHT UPPER LIMB / Unknown Venipuncture / Unknown 03/08/2024 6:25 AM CDT 03/08/2024 6:39 AM CDT Antonino Cheek MD LAB - BLOOD ORDERABL ES [facility] Care Lab [address] Lab (1st floor, no room number) [place] [address], [facility] * (ABNORMAL) Glucose by meter (03/08/2024 6:00 AM CDT) GLUCOSE BY METER POCT 111(H) 70 - 99 mg/dL 03/08/2024 6:07 AM CDT LABORATORY POC Blood, Capillary BLOOD SPECIMEN / Unknown 03/08/2024 6:00 AM CDT 03/08/2024 6:07 AM CDT Ron DEAN - BEAKER POCT Performing Organization Address City/[facility]/ZIP Co de Phone Number LABORATORY [facility] Lab [address] Lab (1st floor, no room number) [place] [address], [facility] * Glucose by meter (03/08/2024 3:08 AM CDT) GLUCOSE BY METER POCT 90 70 - 99 mg/dL 03/08/2024 3:15 AM CDT LABORATORY POC Blood, Capillary BLOOD SPECIMEN / Unknown 03/08/2024 3:08 AM CDT 03/08/2024 3:15 AM CDT Ron Tripathi MD LAB - BEAKER POCT LABORATORY [facility] Lab [address] Lab (1st floor, no room number) [place] [address], [place] * Glucose by meter (03/08/2024 2:01 AM CDT) GLUCOSE BY METER POCT 76 70 - 99 mg/dL 03/08/2024 2:07 AM CDT LABORATORY POC Blood, Capillary BLOOD SPECIMEN / Unknown 03/08/2024 2:01 AM CDT 03/08/2024 2:07 AM CDT Ron Tripathi MD LAB - BEAKER POCT LABORATORY POC [facility] Lab [address] Lab (1st floor, no room number) [place] [address], [facility] * (ABNORMAL) Hemoglobin (03/08/2024 1:12 AM CDT) Hemoglobin 7.6(L) 13.3 - 17.7 g/dL 03/08/2024 1:33 AM CDT LABORATORY Blood STRUCTURE OF LEFT HAND / Unknown Venipuncture / Unknown 03/08/2024 1:12 AM CDT 03/08/2024 1:30 AM CDT Antonino Cheek MD LAB - BLOOD ORDERABL ES LABORATORY [facility] Lab [address] Lab (1st floor, no room number) [place] [address], [facility] * US Upper Extremity Venous Duplex Right [...] US UPPER EXTREMITY VENOUS DUPLEX RIGHT LOCATION: [facility] DATE: 03/07/2024 INDICATION: Swelling, looking [...] US UPPER EXTREMITY VENOUS DUPLEX RIGHT LOCATION: [facility] DATE: 03/07/2024 INDICATION: Swelling, looking [...] theproximal to distal forearm. Antonino Cheek MD [facility] ORDERABLES * Glucose by meter (03/07/2024 9:31 PM CDT) [facility] GLUCOSE BY METER POCT 90 70 - 99 mg/dL 03/07/2024 9:38 PM CDT LABORATORY POC Blood, Capillary BLOOD SPECIMEN / Unknown 03/07/2024 9:31 PM CDT 03/07/2024 9:38 PM CDT Ron [facility] POCT LABORATORY [facility] Lab [address] Lab (1st floor, no room number) [place] [address], [facility] * (ABNORMAL) Hemoglobin (03/07/2024 6:58 PM CDT) Hemoglobin 8.6(L) 13.3 - 17.7 g/dL 03/07/2024 8:44 PM CDT RH LABORATORY Blood STRUCTURE OF RIGHT HAND / Unknown Venipuncture / Unknown 03/07/2024 6:58 PM CDT 03/07/2024 7:06 PM CDT Antonino Cheek MD LAB - BLOOD ORDERABL ES [facility] Lab [address] Lab (1st floor, no room number) [place] [address] * Glucose by meter (03/07/2024 6:56 PM CDT) GLUCOSE BY METER POCT 86 70 - 99 mg/dL 03/07/2024 7:03 PM CDT LABORATORY POC Blood, Capillary BLOOD SPECIMEN / Unknown 03/07/2024 6:56 PM CDT 03/07/2024 7:03 PM CDT Ron Tripathi MD LAB - BEAKER POCT LABORATORY [facility] Lab [address] Lab (1st floor, no room number) [place] [address] * Glucose by meter (03/07/2024 5:03 PM CDT) GLUCOSE BY METER POCT 79 70 - 99 mg/dL 03/07/2024 5:10 PM CDT LABORATORY POC Blood, Capillary BLOOD SPECIMEN / Unknown 03/07/2024 5:03 PM CDT 03/07/2024 5:10 PM CDT Ron Tripathi MD LAB - BEAKER POCT LABORATORY [facility] Lab [address] Lab (1st floor, no room number) [place] [address] * Single Lumen Midline Placement (03/07/2024 1:34 PM CDT) Narrative Patricio Bocanegra RN - 03/07/2024 1:34 PM CDT Patricio Bocanegra RN ? 03/07/2024 ??1:41 PM [facility] Single Lumen Midline Placement Date/Time: [...] procedure a time out was called ?? [place] Protocol: the Joint Commission [place] Protocol was followed ?? Preparation: Patient was [...] size: 4 Fr Brand: Bard Lot number: [id number] Placement method: venipuncture, MST and ultrasound Number [...] Tripathi MD LAB - BEAKER POCT LABORATORY [facility] Lab [address] Lab (1st floor, no room number) [place] [phone] [place] [address] * Glucose by meter (03/07/2024 8:49 AM CDT) GLUCOSE BY METER POCT 77 70 - 99 mg/dL 03/07/2024 8:56 AM CDT LABORATORY POC Blood, Capillary BLOOD SPECIMEN / Unknown 03/07/2024 8:49 AM CDT 03/07/2024 8:56 AM CDT Ron Tripathi MD LAB - [facility] LABORAT[facility] [address] Lab (1st floor, no room number) [address] [place] [address] * (ABNORMAL) Renal panel (03/07/2024 6:21 AM [...] MD LAB - BLOOD ORDERA BLES LABORATORY [facility] [address] [facility] Lab (1st floor, no room number) [place] [id number], [facility] * (ABNORMAL) INR (03/07/2024 6:21 AM CDT) INR 1.28(H) 0.85 - 1.15 03/07/2024 7:17 AM CDT [facility] LABORATORY Blood BLOOD SPECIMEN / Unknown Venipuncture / Unknown 03/07/2024 6:21 AM CDT 03/07/2024 7:06 AM CDT Eileen Earl MD LAB - BLOOD [facility] [address] Lab (1st floor, no room number) [address] [place] [address] * (ABNORMAL) Hemoglobin (03/07/2024 6:21 AM CDT) Hemoglobin 7.8(L) 13.3 - 17.7 g/dL 03/07/2024 7:11 AM CDT [facility] LABORATORY Blood BLOOD SPECIMEN / Unknown Venipuncture / Unknown 03/07/2024 6:21 AM CDT 03/07/2024 7:06 AM CDT Eileen Earl MD LAB - BLOOD KIMA BLERobin Performing Organization Address City/[facility]/ZIP Co de Phone Number [facility] [address] Lab (1st floor, no room number) [place] [phone] [place] [address] * Glucose by meter (03/07/2024 6:19 AM CDT) GLUCOSE BY METER POCT 98 70 - 99 mg/dL 03/07/2024 6:26 AM CDT LABORATORY POC Blood, Capillary BLOOD SPECIMEN / Unknown 03/07/2024 6:19 AM CDT 03/07/2024 6:26 AM CDT Ron Tripathi MD LAB - BEAKER POCT Performing Organization Address City/[facility]/ZIP Co de Phone Number LABORATORY POC [facility] [address] Lab (1st floor, no room number) [place] [phone] * Glucose by meter (03/07/2024 4:05 AM CDT) GLUCOSE BY METER POCT 78 70 - 99 mg/dL 03/07/2024 4:11 AM CDT LABORATORY POC Blood, Capillary BLOOD SPECIMEN / Unknown 03/07/2024 4:05 AM CDT 03/07/2024 4:11 AM CDT Ron DEAN - BEXIANG POCT LABORATORY POC [facility] [address] Lab (1st floor, no room number) [place] [phone] [place] [address] * (ABNORMAL) Hemoglobin (03/07/2024 1:04 AM CDT) Hemoglobin 7.6(L) 13.3 - 17.7 g/dL 03/07/2024 1:17 AM CDT LABORATORY Blood STRUCTURE OF LEFT HAND / Unknown Venipuncture / Unknown 03/07/2024 1:04 AM CDT 03/07/2024 1:14 AM CDT Eileen Earl MD LAB - BLOOD ORDERA BLES Performing Organization Address City/[facility]/ZIP Co de Phone Number LABORATORY [facility] [address] Lab (1st floor, no room number) [place] [phone] [place] [address] * (ABNORMAL) Glucose by meter (03/07/2024 12:40 AM CDT) GLUCOSE BY METER POCT 116(H) 70 - 99 mg/dL 03/07/2024 12:48 AM CDT LABORATORY POC Blood, Capillary BLOOD SPECIMEN / Unknown 03/07/2024 12:40 AM CDT 03/07/2024 12:48 AM CDT Ron DEAN - BEXIANG POCT LABORATORY [facility] [address] Lab (1st floor, no room number) [place] [phone] [place] [address] * (ABNORMAL) Glucose by meter (03/06/2024 9:36 PM CDT) GLUCOSE BY METER POCT 112(H) 70 - 99 mg/dL 03/06/2024 9:44 PM CDT RH LABORATORY POC Blood, Capillary BLOOD SPECIMEN / Unknown 03/06/2024 9:36 PM CDT 03/06/2024 9:44 PM CDT Ron Tripathi MD LAB - BEAKER POCT Performing Organization Address [facility]/ZIP Co de Phone Number LABORATORY [facility] Lab [address] Lab (1st floor, no room number) [place] [phone] [place] [address] * Extra Serum Separator Tube (SST) (03/06/2024 7:55 PM CDT) Hold Specimen JIC 03/06/2024 9:03 PM CDT LABORATORY Blood BLOOD SPECIMEN / Unknown Venipuncture / Unknown 03/06/2024 7:55 PM CDT 03/06/2024 7:55 PM CDT Ron Tripathi MD LAB - BLOOD ORDERABL ES Performing Organization Address [facility]/ZIP Co de Phone Number [facility] [address] Lab (1st floor, no room number) [place] [phone] [place] [address] * (ABNORMAL) Glucose by meter (03/06/2024 6:37 PM CDT) GLUCOSE BY METER POCT 112(H) 70 - 99 mg/dL 03/06/2024 6:45 PM CDT RH LABORATORY POC Blood, Capillary BLOOD SPECIMEN / Unknown 03/06/2024 6:37 PM CDT 03/06/2024 6:45 PM CDT Ron Tripathi MD LAB - [facility] POCT RH LABORATORY [facility] [address] Lab (1st floor, no room number) [place] [address], [facility] * (ABNORMAL) CBC with platelets and [...] LAB - BLOOD ORDERABL ES LABORATORY [facility] [address] Lab (1st floor, no room number) [place] [phone] [place] [address] * (ABNORMAL) Glucose (03/06/2024 4:28 PM CDT) Glucose 196(H) 70 - 99 mg/dL 03/06/2024 4:54 PM CDT LABORATORY Blood STRUCTURE OF LEFT UPPER LIMB / Unknown Venipuncture / Unknown 03/06/2024 4:28 PM CDT 03/06/2024 4:32 PM CDT Antonino Cheek MD LAB - BLOOD ORDERABL ES LABORATORY [facility] [address] Lab (1st floor, no room number) [place] [phone] * (ABNORMAL) Basic metabolic panel (03/06/2024 4:28 [...] MD LAB - BLOOD ORDERABL ES LABORATORY [facility] [address] [facility] Lab (1st floor, no room number) [place] [address], [facility] * (ABNORMAL) Hemoglobin (03/06/2024 4:28 PM CDT) Hemoglobin 7.4(L) 13.3 - 17.7 g/dL 03/06/2024 4:47 PM CDT RH LABORATORY Blood STRUCTURE OF LEFT UPPER LIMB / Unknown Venipuncture / Unknown 03/06/2024 4:28 PM CDT 03/06/2024 4:33 PM CDT Eileen Earl MD LAB - BLOOD ORDERA BLES [facility] [address] Lab (1st floor, no room number) [place] [phone], [facility] * (ABNORMAL) Glucose by meter (03/06/2024 4:26 PM CDT) GLUCOSE BY METER POCT 196(H) 70 - 99 mg/dL 03/06/2024 4:33 PM CDT LABORATORY POC Blood, Capillary BLOOD SPECIMEN / Unknown 03/06/2024 4:26 PM CDT 03/06/2024 4:33 PM CDT Ron Tripathi MD LAB - BEAKER POCT Performing Organization Address [facility]/ZIP Co de Phone Number LABORATORY [facility] Lab [address] Lab (1st floor, no room number) [place] [address], [facility] * (ABNORMAL) Glucose by meter (03/06/2024 4:17 PM CDT) GLUCOSE BY METER POCT 38(LL) 70 - 99 mg/dL 03/06/2024 4:24 PM CDT RH LABORATORY POC Comment:Dr/RN Notified Blood, Capillary BLOOD SPECIMEN / Unknown 03/06/2024 4:17 PM CDT 03/06/2024 4:24 PM CDT Ron Tripathi MD LAB - BEAKER POCT LABORATORY [facility] [address] Lab (1st floor, no room number) [place] [phone] [place] [address] * (ABNORMAL) Glucose by meter (03/06/2024 4:10 PM CDT) GLUCOSE BY METER POCT 47(LL) 70 - 99 mg/dL 03/19/2024 8:02 AM CDT LABORATORY POC Comment:Dr/RN Notified Blood, Capillary BLOOD SPECIMEN / Unknown 03/06/2024 4:10 PM CDT 03/19/2024 8:02 AM CDT Ron Tripathi MD LAB - BEAKER POCT LABORATORY [facility] Lab [address] Lab (1st floor, no room number) [place] [phone] [place] [address] * (ABNORMAL) Glucose by meter (03/06/2024 3:18 PM CDT) GLUCOSE BY METER POCT 64(L) 70 - 99 mg/dL 03/06/2024 3:26 PM CDT LABORATORY POC Blood, Capillary BLOOD SPECIMEN / Unknown 03/06/2024 3:18 PM CDT 03/06/2024 3:26 PM CDT Ron Tripathi MD LAB - BEAKER POCT LABORATORY [facility] Lab [address] Lab (1st floor, no room number) [place] [phone] [place] [address] * (ABNORMAL) Glucose by meter (03/06/2024 3:03 PM CDT) GLUCOSE BY METER POCT 63(L) 70 - 99 mg/dL 03/06/2024 3:11 PM CDT LABORATORY POC Blood, Capillary BLOOD SPECIMEN / Unknown 03/06/2024 3:03 PM CDT 03/06/2024 3:11 PM CDT Narrative Authorizing Provider Result Lauren Tripathi MD LAB - BEAKER POCT LABORATORY POC [facility] [address] Lab (1st floor, no room number) [place] [address] * (ABNORMAL) Hemoglobin - Pre-Op (03/06/2024 1:23 PM CDT) Hemoglobin 7.6(L) 13.3 - 17.7 g/dL 03/06/2024 1:39 PM CDT LABORATORY Blood STRUCTURE OF RIGHT UPPER LIMB / Unknown Venipuncture / Unknown 03/06/2024 1:23 PM CDT 03/06/2024 1:34 PM CDT Antonino Cheek MD LAB - BLOOD ORDERABL ES Performing Organization Address City/[facility]/ZIP Co de Phone Number LABORATORY [facility] Lab [address] [facility] Lab (1st floor, no room number) [place] [address] * UPPER GI ENDOSCOPY (03/06/2024 1:21 PM CDT) Upper GI Endoscopy [facility] Patient Name: Herminio Victor ? Procedure Date: 03/06/2024 1:21 PM ? Date of : 1965 ?Admit Type: Inpatient Age: 58 ? Gender: Male Attending MD: EILEEN EARL MD, ??Total Sedation Time: MAC sedation Instrument Name: 206 - Gastroscope ? Procedure: ?Upper GI endoscopy Indications: ?worsening anemia Providers: ?EILEEN EARL MD (Doctor) Referring : ? Medicines: ?Monitored Anesthesia Care Complications: ?No [...] ?Olympus Gastroscope, Model # [id number]-H190, Censitrac # ?[id number] was introduced through the mouth, and ?advanced [...] Note Initiated On: 03/06/2024 1:21 PM MRN: ?[id number] Procedure Date: ? 03/06/2024 1:21:29 PM Total [...] Ron DEAN - DAVID POCT RH LABORATORY [facility] Lab [address] Lab (1st floor, no room number) [place] [address] * Transfuse red blood cells (unit) (03/06/2024 [...] PM CDT 03/06/2024 12:08 PM CDT Ron Tripathi MD LAB - BEAKER POCT RH LABORATORY [facility] [address] Lab (1st floor, no room number) [place] [address] * Adult Type and Screen (03/06/2024 8:53 AM CDT) ABO/RH(D) O POS 03/06/2024 7:57 AM CDT RH BLOOD BANK Antibody Screen Negative Negative 03/06/2024 7:57 AM CDT RH BLOOD BANK SPECIMEN EXPIRATION DATE [id number] 03/06/2024 7:57 AM CDT RH BLOOD BANK Blood STRUCTURE OF RIGHT HAND / Unknown Venipuncture / Unknown 03/06/2024 8:53 AM CDT 03/06/2024 9:00 AM CDT Antonino Cheek MD LAB - BLOOD BANK SHANNON T ORDER RH BLOOD BANK [address] [place] [address] * Glucose by meter (03/06/2024 7:57 AM CDT) GLUCOSE BY METER POCT 87 70 - 99 mg/dL 03/06/2024 8:04 AM CDT RH LABORATORY POC Blood, Capillary BLOOD SPECIMEN / Unknown 03/06/2024 7:57 AM CDT 03/06/2024 8:04 AM CDT Ron Tripathi MD LAB - BEAKER POCT RH LABORATORY POC [facility] [address] Lab (1st floor, no room number) [place] [address] * Prepare red blood cells (unit) (03/06/2024 7:50 AM CDT) Blood Component Type Red Blood Cells RH BLOOD BANK Product Code [id number] RH BLOO D BANK Unit Status Transfused RH BLOO D BANK Unit Number [id number] RH B LOOD BANK CROSSMATCH Compatible RH BLOOD BANK CODING SYSTEM [id number] RH BLO OD BANK ISSUE DATE AND TIME [id number] RH BLOOD BANK UNIT ABO/RH O+ RH BLOOD BANK UNIT TYPE ISBT 5100 RH BL OOD BANK 03/06/2024 7:50 AM CDT Antonino Cheek MD BLOOD BANK PRODUCT O RDERABLES BLOOD [place] [address], [facility] * (ABNORMAL) Renal panel (03/06/2024 6:54 AM [...] - BLOOD ORDERA BLES Performing Organization Address [facility]/ZIP Co de Phone Number [facility] [address] Lab (1st floor, no room number) [place] [address] * (ABNORMAL) Hemoglobin (03/06/2024 6:54 AM CDT) Hemoglobin 7.0(L) 13.3 - 17.7 g/dL 03/06/2024 7:04 AM CDT RH LABORATORY Blood STRUCTURE OF RIGHT HAND / Unknown Venipuncture / Unknown 03/06/2024 6:54 AM CDT 03/06/2024 7:00 AM CDT Antonino Cheek MD LAB - BLOOD ORDERABL ES Performing Organization Address [facility]/ZIP Co de Phone Number [facility] [address] Lab (1st floor, no room number) [place] [address] * (ABNORMAL) INR (03/06/2024 6:54 AM CDT) INR 1.51(H) 0.85 - 1.15 03/06/2024 7:19 AM CDT LABORATORY Blood STRUCTURE OF RIGHT HAND / Unknown Venipuncture / Unknown 03/06/2024 6:54 AM CDT 03/06/2024 7:00 AM CDT Eileen Earl MD LAB - BLOOD ORDERA BLES Performing Organization Address City/[facility]/ZIP Co de Phone Number [facility] [address] Lab (1st floor, no room number) [place] [phone] * Glucose by meter (03/06/2024 4:05 AM CDT) GLUCOSE BY METER POCT 90 70 - 99 mg/dL 03/06/2024 4:21 AM CDT RH LABORATORY POC Blood, Capillary BLOOD SPECIMEN / Unknown 03/06/2024 4:05 AM CDT 03/06/2024 4:21 AM CDT Narrative Authorizing Provider Result Lauren DEAN - BEAKER POCT LABORATORY [facility] [address] Lab (1st floor, no room number) [place] [address], [facility] * (ABNORMAL) Glucose by meter (03/06/2024 12:01 AM CDT) GLUCOSE BY METER POCT 101(H) 70 - 99 mg/dL 03/06/2024 12:13 AM CDT LABORATORY POC Blood, Capillary BLOOD SPECIMEN / Unknown 03/06/2024 12:01 AM CDT 03/06/2024 12:13 AM CDT Narrative Authorizing Provider Result Lauren DEAN - BEAKER POCT Performing Organization Address City/[facility]/ZIP Co de Phone Number LABORATORY [facility] [address] Lab (1st floor, no room number) [place] [address], [facility] * Glucose by meter (03/05/2024 10:01 PM CDT) GLUCOSE BY METER POCT 87 70 - 99 mg/dL 03/05/2024 10:09 PM CDT LABORATORY POC Blood, Capillary BLOOD SPECIMEN / Unknown 03/05/2024 10:01 PM CDT 03/05/2024 10:09 PM CDT Narrative Authorizing Provider Result Lauren Tripathi MD LAB - BEAKER POCT LABORATORY [facility] [address] Lab (1st floor, no room number) [place] [address], [facility] * (ABNORMAL) Hemoglobin (03/05/2024 6:53 PM CDT) Hemoglobin 8.4(L) 13.3 - 17.7 g/dL 03/05/2024 7:07 PM CDT RH LABORATORY Blood STRUCTURE OF LEFT HAND / Unknown Venipuncture / Unknown 03/05/2024 6:53 PM CDT 03/05/2024 7:02 PM CDT Antonino Cheek MD LAB - BLOOD ORDERABL ES [facility] Lab [address] Lab (1st floor, no room number) [address] [place] [address] * Glucose by meter (03/05/2024 5:47 PM CDT) GLUCOSE BY METER POCT 96 70 - 99 mg/dL 03/05/2024 5:54 PM CDT RH LABORATORY POC Blood, Capillary BLOOD SPECIMEN / Unknown 03/05/2024 5:47 PM CDT 03/05/2024 5:54 PM CDT Ron Tripathi MD LAB - BEAKER POCT [facility] Lab [address] Lab (1st floor, no room number) [address] * CONDITIONAL Transfuse red blood cells (unit) 1; No special requirements (03/05/2024 4:07 PM CDT) Eileen Earl MD BLOOD TRANSFUSION ORDERABLES * CONDITIONAL Prepare red blood cells (unit) (03/05/2024 12:47 PM CDT) Blood Component Type Red Blood Cells RH BLOOD BANK Product Code [id number] RH BLOO D BANK Unit Status Transfused RH BLOO D BANK Unit Number [id number] RH B LOOD BANK CROSSMATCH Compatible RH BLOOD BANK CODING SYSTEM [id number] RH BLO OD BANK ISSUE DATE AND TIME [id number] RH BLOOD BANK UNIT ABO/RH O+ RH BLOOD BANK UNIT TYPE ISBT 5100 RH BL OOD BANK 03/05/2024 12:4 7 PM CDT Ron Tripathi MD BLOOD BANK PRODUCT O RDERABLES Performing Organization Address [facility] Co de Phone Number BLOOD BANK [address] * (ABNORMAL) Hemoglobin (03/05/2024 12:12 PM CDT) Hemoglobin 6.9(LL) 13.3 - 17.7 g/dL 03/05/2024 12:40 PM CDT RH LABORATORY Blood STRUCTURE OF LEFT HAND / Unknown Venipuncture / Unknown 03/05/2024 12:12 PM CDT 03/05/2024 12:21 PM CDT Antonino Cheek MD LAB - BLOOD ORDERABL ES Performing Organization Address [facility] Co de Phone Number LABORATORY [facility] [address] Lab (1st floor, no room number) [address] * (ABNORMAL) Glucose by meter (03/05/2024 12:06 PM CDT) GLUCOSE BY METER POCT 107(H) 70 - 99 mg/dL 03/05/2024 12:13 PM CDT LABORATORY POC Blood, Capillary BLOOD SPECIMEN / Unknown 03/05/2024 12:06 PM CDT 03/05/2024 12:13 PM CDT Ron Tripathi MD LAB - BEAKER POCT Performing Organization Address [facility]/ZIP Co de Phone Number LABORATORY POC [facility] Lab [address] Lab (1st floor, no room number) [address] * Glucose by meter (03/05/2024 7:58 AM CDT) GLUCOSE BY METER POCT 83 70 - 99 mg/dL 03/05/2024 8:04 AM CDT RH LABORATORY POC Blood, Capillary BLOOD SPECIMEN / Unknown 03/05/2024 7:58 AM CDT 03/05/2024 8:04 AM CDT Ron Tripathi MD LAB - BEAKER POCT Performing Organization Address [facility]/ZIP Co de Phone Number LABORATORY [facility] [address] Lab (1st floor, no room number) [address] [place] [address] * (ABNORMAL) Hemoglobin (03/05/2024 7:35 AM CDT) Hemoglobin 7.1(L) 13.3 - 17.7 g/dL 03/05/2024 8:01 AM CDT LABORATORY Blood STRUCTURE OF LEFT HAND / Unknown Venipuncture / Unknown 03/05/2024 7:35 AM CDT 03/05/2024 7:57 AM CDT Aashish Romero DO LAB - BLOOD ORDER NADIA Performing Organization Address [facility] Co de Phone Number [facility] Lab [address] Lab (1st floor, no room number) [address] [place] [address] * (ABNORMAL) INR (03/05/2024 7:35 AM CDT) INR 2.20(H) 0.85 - 1.15 03/05/2024 8:13 AM CDT LABORATORY Blood STRUCTURE OF LEFT HAND / Unknown Venipuncture / Unknown 03/05/2024 7:35 AM CDT 03/05/2024 7:57 AM CDT Eileen Earl MD LAB - BLOOD ORDERA BLES Performing Organization Address [facility]/ZIP Co de Phone Number [facility] Lab [address] Lab (1st floor, no room number) [address] * (ABNORMAL) Comprehensive metabolic panel (03/05/2024 7:35 [...] - 5.3 mmol/L 03/05/2024 9:14 AM CDT LABORATORY Carbon Dioxide (CO2) 19(L) 22 - 29 mmol/L 03/05/2024 9:14 AM CDT LABORATORY Anion Gap 18(H) 7 - 15 mmol/L 03/05/2024 9:14 AM CDT LABORATORY Urea Nitrogen 81.7(H) 8.0 - 23.0 mg/dL 03/05/2024 9:14 AM CDT LABORATORY Creatinine 8.51(H) 0.67 - 1.17 mg/dL 03/05/2024 9:14 AM CDT LABORATORY GFR Estimate 7(L) >60 mL/min/1. 73m2 03/05/2024 9:14 AM CDT LABORATORY Calcium 7.8(L) 8.8 - 10.2 mg/dL 03/05/2024 9:14 AM CDT LABORATORY Chloride 79(L) 98 - 107 mmol/L 03/05/2024 9:14 AM CDT LABORATORY Glucose 88 70 - 99 mg/dL 03/05/2024 9:14 AM CDT LABORATORY Alkaline Phosphatase 76 40 - 150 U/L 03/05/2024 9:14 AM CDT LABORATORY AST 22 0 - 45 U/L 03/05/2024 9:14 AM CDT LABORATORY Comment:Reference intervals for this test were updated on 03/21/2023 to more accurately reflect our healthy population. There may be differences in the flagging of prior results with similar values performed with this method. Interpretation of those prior results can be made in the context of the updated reference intervals. ALT 15 0 - 70 U/L 03/05/2024 9:14 AM CDT LABORATORY Comment:Reference intervals for this [...] LAB - BLOOD ORDER NADIA RH LABORATORY [facility] [address] [facility] Lab (1st floor, no room number) [place] [address] * (ABNORMAL) CBC with platelets (03/05/2024 7:35 [...] Romero DO LAB - BLOOD ORDER NADIA [facility] Lab [address] Lab (1st floor, no room number) [place] [address] * (ABNORMAL) Glucose by meter (03/05/2024 4:09 AM CDT) GLUCOSE BY METER POCT 107(H) 70 - 99 mg/dL 03/05/2024 4:16 AM CDT LABORATORY POC Blood, Capillary BLOOD SPECIMEN / Unknown 03/05/2024 4:09 AM CDT 03/05/2024 4:16 AM CDT Ron HERNANDEZ POCT LABORATORY [facility] [address] Lab (1st floor, no room number) [place] [address], [facility] * (ABNORMAL) Glucose by meter (03/05/2024 3:22 AM CDT) GLUCOSE BY METER POCT 115(H) 70 - 99 mg/dL 03/05/2024 3:30 AM CDT LABORATORY POC Blood, Capillary BLOOD SPECIMEN / Unknown 03/05/2024 3:22 AM CDT 03/05/2024 3:30 AM CDT Ron HERNANDEZ POCT LABORATORY [facility] [address] Lab (1st floor, no room number) [place] [address], [facility] * (ABNORMAL) Glucose by meter (03/05/2024 12:07 AM CDT) GLUCOSE BY METER POCT 118(H) 70 - 99 mg/dL 03/05/2024 12:14 AM CDT RH LABORATORY POC Blood, Capillary BLOOD SPECIMEN / Unknown 03/05/2024 12:07 AM CDT 03/05/2024 12:14 AM CDT Ron DEAN - BEAKER POCT LABORATORY [facility] [address] Lab (1st floor, no room number) [place] [phone] [place] [address] * (ABNORMAL) Glucose by meter (03/04/2024 9:37 PM CDT) GLUCOSE BY METER POCT 132(H) 70 - 99 mg/dL 03/04/2024 9:45 PM CDT RH LABORATORY POC Blood, Capillary BLOOD SPECIMEN / Unknown 03/04/2024 9:37 PM CDT 03/04/2024 9:45 PM CDT Ron DEAN - DAVID POCT LABORATORY [facility] [address] Lab (1st floor, no room number) [place] [phone] [place] [address] * (ABNORMAL) Glucose by meter (03/04/2024 8:34 PM CDT) GLUCOSE BY METER POCT 122(H) 70 - 99 mg/dL 03/04/2024 8:41 PM CDT RH LABORATORY POC Blood, Capillary BLOOD SPECIMEN / Unknown 03/04/2024 8:34 PM CDT 03/04/2024 8:41 PM CDT Ron DEAN - BEAKER POCT LABORATORY [facility] [address] Lab (1st floor, no room number) [address] * (ABNORMAL) Potassium (03/04/2024 6:29 PM CDT) Potassium 5.6(H) 3.4 - 5.3 mmol/L 03/04/2024 7:00 PM CDT RH LABORATORY Blood STRUCTURE OF LEFT HAND / Unknown Venipuncture / Unknown 03/04/2024 6:29 PM CDT 03/04/2024 6:37 PM CDT Job Her MD LAB - BLOOD ORDERABL ES LABORATORY [facility] [address] Lab (1st floor, no room number) [address] * (ABNORMAL) Hemoglobin (03/04/2024 6:29 PM CDT) Hemoglobin 7.7(L) 13.3 - 17.7 g/dL 03/04/2024 6:41 PM CDT RH LABORATORY Blood STRUCTURE OF LEFT HAND / Unknown Venipuncture / Unknown 03/04/2024 6:29 PM CDT 03/04/2024 6:37 PM CDT Aashish Romero DO LAB - BLOOD ORDER NADIA LABORATORY [facility] [address] Lab (1st floor, no room number) [address] * Glucose by meter (03/04/2024 5:44 PM CDT) GLUCOSE BY METER POCT 93 70 - 99 mg/dL 03/04/2024 5:51 PM CDT LABORATORY POC Blood, Capillary BLOOD SPECIMEN / Unknown 03/04/2024 5:44 PM CDT 03/04/2024 5:51 PM CDT Ron Tripathi MD LAB - BEAKER POCT LABORATORY [facility] [address] Lab (1st floor, no room number) [address] [place] [address] * Glucose by meter (03/04/2024 3:12 PM CDT) GLUCOSE BY METER POCT 96 70 - 99 mg/dL 03/04/2024 3:19 PM CDT [facility] LABORATORY POC Blood, Capillary BLOOD SPECIMEN / Unknown 03/04/2024 3:12 PM CDT 03/04/2024 3:19 PM CDT Ron DEAN - BEXIANG POCT Performing Organization Address City/[facility]/ZIP Co de Phone Number LABORATORY [facility] [address] Lab (1st floor, no room number) [address] * Glucose by meter (03/04/2024 1:46 PM CDT) GLUCOSE BY METER POCT 86 70 - 99 mg/dL 03/04/2024 1:53 PM CDT LABORATORY POC Blood, Capillary BLOOD SPECIMEN / Unknown 03/04/2024 1:46 PM CDT 03/04/2024 1:53 PM CDT Narrative Authorizing Provider Result Lauren DEAN - DAVID POCT Performing Organization Address [facility]/ZIP Co de Phone Number LABORATORY [facility] [address] Lab (1st floor, no room number) [address] * (ABNORMAL) Glucose by meter (03/04/2024 1:09 PM CDT) GLUCOSE BY METER POCT 67(L) 70 - 99 mg/dL 03/04/2024 1:15 PM CDT RH LABORATORY POC Blood, Capillary BLOOD SPECIMEN / Unknown 03/04/2024 1:09 PM CDT 03/04/2024 1:15 PM CDT Narrative Authorizing Provider Result Lauren Tripathi MD LAB - BEAKER POCT Performing Organization Address City/[facility]/ZIP Co de Phone Number LABORATORY [facility] [address] Lab (1st floor, no room number) [place], [place] [address] * (ABNORMAL) Glucose by meter (03/04/2024 11:59 AM CDT) GLUCOSE BY METER POCT 69(L) 70 - 99 mg/dL 03/04/2024 12:06 PM CDT RH LABORATORY POC Blood, Capillary BLOOD SPECIMEN / Unknown 03/04/2024 11:59 AM CDT 03/04/2024 12:06 PM CDT Ron Tripathi MD LAB - BEAKER POCT Performing Organization Address [facility]/ZIP Co de Phone Number LABORATORY [facility] Lab [address] Lab (1st floor, no room number) [place] [address] * Glucose by meter (03/04/2024 10:47 AM CDT) GLUCOSE BY METER POCT 74 70 - 99 mg/dL 03/04/2024 11:06 AM CDT LABORATORY POC Blood, Capillary BLOOD SPECIMEN / Unknown 03/04/2024 10:47 AM CDT 03/04/2024 11:06 AM CDT Ron DEAN - DAVID POCT Performing Organization Address City/[facility]/ZIP Co de Phone Number LABORATORY [facility] [address] Lab (1st floor, no room number) [place] [address], [facility] * Glucose by meter (03/04/2024 8:58 AM CDT) GLUCOSE BY METER POCT 81 70 - 99 mg/dL 03/04/2024 9:06 AM CDT RH LABORATORY POC Blood, Capillary BLOOD SPECIMEN / Unknown 03/04/2024 8:58 AM CDT 03/04/2024 9:06 AM CDT Ron Tripathi MD LAB - BEAKER POCT LABORATORY [facility] [address] Lab (1st floor, no room number) [place] [address] * Glucose by meter (03/04/2024 7:03 AM CDT) GLUCOSE BY METER POCT 76 70 - 99 mg/dL 03/04/2024 7:10 AM CDT LABORATORY POC Blood, Capillary BLOOD SPECIMEN / Unknown 03/04/2024 7:03 AM CDT 03/04/2024 7:10 AM CDT Ron Tripathi MD LAB - BEAKER POCT Performing Organization Address [facility]/ZIP Co de Phone Number LABORATORY [facility] [address] [facility] Lab (1st floor, no room number) [place] [phone] * (ABNORMAL) Comprehensive metabolic panel (03/04/2024 6:45 [...] - 29 mmol/L 03/04/2024 8:11 AM CDT RH LABORATORY Anion Gap 16(H) 7 - 15 mmol/L 03/04/2024 8:11 AM CDT RH LABORATORY Urea Nitrogen 61.1(H) 8.0 - 23.0 [...] DO LAB - BLOOD ORDER NADIA LABORATORY [facility] [address] Lab (1st floor, no room number) [place] [address] * (ABNORMAL) CBC with platelets (03/04/2024 6:45 [...] LAB - BLOOD ORDER NADIA RH LABORATORY [facility] [address] Lab (1st floor, no room number) [place] [address] * (ABNORMAL) Hemoglobin (03/04/2024 6:45 AM CDT) Hemoglobin 7.1(L) 13.3 - 17.7 g/dL 03/04/2024 6:57 AM CDT RH LABORATORY Blood STRUCTURE OF RIGHT UPPER LIMB / Unknown Venipuncture / Unknown 03/04/2024 6:45 AM CDT 03/04/2024 6:54 AM CDT Ron Tripathi MD LAB - BLOOD ORDERABL ES LABORATORY [facility] [address] Lab (1st floor, no room number) [place] [address], [facility] * Cortisol (03/04/2024 6:45 AM CDT) [...] DO LAB - BLOOD ORDER NADIA LABORATORY [facility] [address] [place] [address], [facility] * Glucose by meter (03/04/2024 5:08 AM CDT) GLUCOSE BY METER POCT 93 70 - 99 mg/dL 03/04/2024 5:15 AM CDT LABORATORY POC Blood, Capillary BLOOD SPECIMEN / Unknown 03/04/2024 5:08 AM CDT 03/04/2024 5:15 AM CDT Ron Tripathi MD LAB - BEAKER POCT LABORATORY POC [facility] [address] Lab (1st floor, no room number) [place] [address], [facility] * (ABNORMAL) Glucose by meter (03/04/2024 3:28 AM CDT) GLUCOSE BY METER POCT 116(H) 70 - 99 mg/dL 03/04/2024 3:36 AM CDT RH LABORATORY POC Blood, Capillary BLOOD SPECIMEN / Unknown 03/04/2024 3:28 AM CDT 03/04/2024 3:36 AM CDT Narrative Authorizing Provider Result Lauren Tripathi MD LAB - BEAKER POCT LABORATORY [facility] Lab [address] Lab (1st floor, no room number) [place] [address], [facility] * Glucose by meter (03/04/2024 2:12 AM CDT) GLUCOSE BY METER POCT 77 70 - 99 mg/dL 03/04/2024 2:20 AM CDT RH LABORATORY POC Comment:Dr/RN Notified Blood, Capillary BLOOD SPECIMEN / Unknown 03/04/2024 2:12 AM CDT 03/04/2024 2:20 AM CDT Narrative Authorizing Provider Result Lauren Tripathi MD LAB - BEAKER POCT Performing Organization Address City/[facility]/ZIP Co de Phone Number LABORATORY [facility] [address] Lab (1st floor, no room number) [place] [address], [facility] * Glucose by meter (03/04/2024 12:25 AM CDT) GLUCOSE BY METER POCT 96 70 - 99 mg/dL 03/04/2024 12:32 AM CDT LABORATORY POC Blood, Capillary BLOOD SPECIMEN / Unknown 03/04/2024 12:25 AM CDT 03/04/2024 12:32 AM CDT Narrative Authorizing Provider Result Lauren Tripathi MD LAB - BEAKER POCT LABORATORY [facility] Lab [address] Lab (1st floor, no room number) [place] [address], [facility] * (ABNORMAL) Hemoglobin (03/03/2024 9:40 PM CDT) Hemoglobin 7.2(L) 13.3 - 17.7 g/dL 03/03/2024 9:53 PM CDT LABORATORY Blood STRUCTURE OF RIGHT UPPER LIMB / Unknown Venipuncture / Unknown 03/03/2024 9:40 PM CDT 03/03/2024 9:50 PM CDT Narrative Authorizing Provider Result Lauren Tripathi MD LAB - BLOOD ORDERABL ES [facility] Lab [address] Lab (1st floor, no room number) [address] * (ABNORMAL) Glucose by meter (03/03/2024 8:13 PM CDT) GLUCOSE BY METER POCT 144(H) 70 - 99 mg/dL 03/03/2024 8:20 PM CDT LABORATORY POC Blood, Capillary BLOOD SPECIMEN / Unknown 03/03/2024 8:13 PM CDT 03/03/2024 8:20 PM CDT Narrative Authorizing Provider Result Lauren DEAN - BEAKER POCT LABORATORY [facility] Lab [address] Lab (1st floor, no room number) [address] [place] [address] * (ABNORMAL) Glucose by meter (03/03/2024 6:23 PM CDT) GLUCOSE BY METER POCT 110(H) 70 - 99 mg/dL 03/03/2024 6:29 PM CDT LABORATORY POC Blood, Capillary BLOOD SPECIMEN / Unknown 03/03/2024 6:23 PM CDT 03/03/2024 6:29 PM CDT Narrative Authorizing Provider Result Lauren DEAN - BEAKER POCT LABORATORY POC [facility] [address] Lab (1st floor, no room number) [place] [phone] [place] [address] * (ABNORMAL) Glucose by meter (03/03/2024 5:39 PM CDT) GLUCOSE BY METER POCT 57(L) 70 - 99 mg/dL 03/03/2024 5:45 PM CDT RH LABORATORY POC Blood, Capillary BLOOD SPECIMEN / Unknown 03/03/2024 5:39 PM CDT 03/03/2024 5:45 PM CDT Ron Tripathi MD LAB - BEAKER POCT LABORATORY [facility] Lab [address] Lab (1st floor, no room number) [place] [phone] [place] [address] * (ABNORMAL) Glucose by meter (03/03/2024 5:11 PM CDT) GLUCOSE BY METER POCT 64(L) 70 - 99 mg/dL 03/03/2024 5:18 PM CDT LABORATORY POC Blood, Capillary BLOOD SPECIMEN / Unknown 03/03/2024 5:11 PM CDT 03/03/2024 5:18 PM CDT Ron DEAN - BEAKER POCT LABORATORY [facility] [address] Lab (1st floor, no room number) [place] [phone] [place] [address] * (ABNORMAL) Glucose by meter (03/03/2024 4:39 PM CDT) GLUCOSE BY METER POCT 55(L) 70 - 99 mg/dL 03/03/2024 4:46 PM CDT LABORATORY POC Blood, Capillary BLOOD SPECIMEN / Unknown 03/03/2024 4:39 PM CDT 03/03/2024 4:46 PM CDT Ron HERNANDEZ POCT Performing Organization Address City/[facility]/ZIP Co de Phone Number LABORATORY [facility] [address] Lab (1st floor, no room number) [place] [phone] [place] [address] * (ABNORMAL) Glucose by meter (03/03/2024 4:17 PM CDT) GLUCOSE BY METER POCT 65(L) 70 - 99 mg/dL 03/03/2024 4:25 PM CDT RH LABORATORY POC Blood, Capillary BLOOD SPECIMEN / Unknown 03/03/2024 4:17 PM CDT 03/03/2024 4:25 PM CDT Ron DEAN - DAVID POCT Performing Organization Address [facility]/ZIP Co de Phone Number LABORATORY [facility] [address] Lab (1st floor, no room number) [address] [place] [address] * (ABNORMAL) Glucose by meter (03/03/2024 2:11 PM CDT) GLUCOSE BY METER POCT 65(L) 70 - 99 mg/dL 03/03/2024 2:17 PM CDT RH LABORATORY POC Blood, Capillary BLOOD SPECIMEN / Unknown 03/03/2024 2:11 PM CDT 03/03/2024 2:17 PM CDT Ron HERNANDEZ POCT Performing Organization Address City/[facility]/ZIP Co de Phone Number LABORATORY [facility] [address] Lab (1st floor, no room number) [address] [place] [address] * (ABNORMAL) Hemoglobin (03/03/2024 2:07 PM CDT) Hemoglobin 7.6(L) 13.3 - 17.7 g/dL 03/03/2024 2:13 PM CDT RH LABORATORY Blood STRUCTURE OF RIGHT UPPER LIMB / Unknown Venipuncture / Unknown 03/03/2024 2:07 PM CDT 03/03/2024 2:10 PM CDT Narrative Authorizing Provider Result Lauren Tripathi MD LAB - BLOOD ORDERABL ES Performing Organization Address City/[facility]/ZIP Co de Phone Number [facility] [address] Lab (1st floor, no room number) [place] [phone] [place] [address] * (ABNORMAL) Glucose by meter (03/03/2024 11:59 AM CDT) GLUCOSE BY METER POCT 152(H) 70 - 99 mg/dL 03/03/2024 2:15 PM CDT RH LABORATORY POC Blood, Capillary BLOOD SPECIMEN / Unknown 03/03/2024 11:59 AM CDT 03/03/2024 2:15 PM CDT Ron Tripathi MD LAB - BEAKER POCT Performing Organization Address [facility]/ZIP Co de Phone Number [facility] Lab [address] Lab (1st floor, no room number) [place] [phone], [facility] * Glucose by meter (03/03/2024 11:36 AM CDT) GLUCOSE BY METER POCT 80 70 - 99 mg/dL 03/03/2024 2:14 PM CDT LABORATORY POC Blood, Capillary BLOOD SPECIMEN / Unknown 03/03/2024 11:36 AM CDT 03/03/2024 2:14 PM CDT Narrative Authorizing Provider Result Lauren DEAN - BEAKER POCT LABORATORY [facility] Lab [address] Lab (1st floor, no room number) [place] [address], [facility] * (ABNORMAL) Glucose by meter (03/03/2024 11:14 AM CDT) GLUCOSE BY METER POCT 39(LL) 70 - 99 mg/dL 03/03/2024 2:14 PM CDT RH LABORATORY POC Comment:Dr/RN Notified Blood, Capillary BLOOD SPECIMEN / Unknown 03/03/2024 11:14 AM CDT 03/03/2024 2:14 PM CDT Ron DEAN - BEAKER POCT Performing Organization Address [facility]/ZIP Co de Phone Number LABORATORY [facility] [address] Lab (1st floor, no room number) [address] [place] [address] * Glucose by meter (03/03/2024 10:51 AM CDT) GLUCOSE BY METER POCT 79 70 - 99 mg/dL 03/03/2024 10:58 AM CDT LABORATORY POC Blood, Capillary BLOOD SPECIMEN / Unknown 03/03/2024 10:51 AM CDT 03/03/2024 10:58 AM CDT Ron DEAN - BEAKER POCT Performing Organization Address [facility]/ZIP Co de Phone Number LABORATORY [facility] [address] Lab (1st floor, no room number) [place] [phone] [place] [address] * (ABNORMAL) Glucose by meter (03/03/2024 10:30 AM CDT) GLUCOSE BY METER POCT 56(L) 70 - 99 mg/dL 03/03/2024 10:37 AM CDT LABORATORY POC Blood, Capillary BLOOD SPECIMEN / Unknown 03/03/2024 10:30 AM CDT 03/03/2024 10:37 AM CDT Ron Tripathi MD LAB - BEAKER POCT Performing Organization Address [facility]/ZIP Co de Phone Number LABORATORY [facility] [address] Lab (1st floor, no room number) [place] [phone] [place] [address] * (ABNORMAL) Hemoglobin (03/03/2024 6:10 AM CDT) Hemoglobin 7.1(L) 13.3 - 17.7 g/dL 03/03/2024 6:27 AM CDT RH LABORATORY Blood STRUCTURE OF RIGHT UPPER LIMB / Unknown Venipuncture / Unknown 03/03/2024 6:10 AM CDT 03/03/2024 6:25 AM CDT Ron Tripathi MD LAB - BLOOD ORDERABL ES Performing Organization Address City/[facility]/ZIP Co de Phone Number LABORATORY [facility] [address] Lab (1st floor, no room number) [place] [phone] * (ABNORMAL) INR (03/03/2024 6:10 AM CDT) INR 2.23(H) 0.85 - 1.15 03/03/2024 6:46 AM CDT RH LABORATORY Blood STRUCTURE OF RIGHT UPPER LIMB / Unknown Venipuncture / Unknown 03/03/2024 6:10 AM CDT 03/03/2024 6:25 AM CDT Ron Tripathi MD LAB - BLOOD ORDERABL ES Performing Organization Address [facility]/ZIP Co de Phone Number [facility] Lab [address] Lab (1st floor, no room number) [place] [phone] * (ABNORMAL) CBC with platelets (03/03/2024 6:10 [...] MD LAB - BLOOD ORDERABL ES LABORATORY [facility] [address] [facility] Lab (1st floor, no room number) [place] [address] * (ABNORMAL) Basic metabolic panel (03/03/2024 6:10 [...] - 107 mmol/L 03/03/2024 6:46 AM CDT RH LABORATORY Carbon Dioxide (CO2) 27 [...] Tripathi MD LAB - BLOOD ORDERABL ES [facility] Lab [address] Lab (1st floor, no room number) [place] [phone] [place] [address] * (ABNORMAL) Glucose by meter (03/03/2024 5:27 AM CDT) GLUCOSE BY METER POCT 135(H) 70 - 99 mg/dL 03/03/2024 5:34 AM CDT LABORATORY POC Blood, Capillary BLOOD SPECIMEN / Unknown 03/03/2024 5:27 AM CDT 03/03/2024 5:34 AM CDT Ron Tripathi MD LAB - BEAKER POCT [facility] Lab [address] Lab (1st floor, no room number) [place] [phone] [place] [address] * Glucose by meter (03/03/2024 4:16 AM CDT) GLUCOSE BY METER POCT 71 70 - 99 mg/dL 03/03/2024 4:23 AM CDT RH LABORATORY POC Blood, Capillary BLOOD SPECIMEN / Unknown 03/03/2024 4:16 AM CDT 03/03/2024 4:23 AM CDT Ron Tripathi MD LAB - BEXIANG POCT LABORATORY [facility] [address] Lab (1st floor, no room number) [place] [phone] [place] [address] * Glucose by meter (03/03/2024 2:40 AM CDT) GLUCOSE BY METER POCT 91 70 - 99 mg/dL 03/03/2024 2:46 AM CDT LABORATORY POC Blood, Capillary BLOOD SPECIMEN / Unknown 03/03/2024 2:40 AM CDT 03/03/2024 2:46 AM CDT Ron Tripathi MD LAB - BEXIANG POCT Performing Organization Address City/[facility]/ZIP Co de Phone Number LABORATORY [facility] [address] Lab (1st floor, no room number) [address] * CONDITIONAL Transfuse red blood cells [...] CDT Ron DEAN - BEXIANG POCT LABORATORY [facility] [address] Lab (1st floor, no room number) [address] * Glucose by meter (03/03/2024 12:34 AM CDT) GLUCOSE BY METER POCT 74 70 - 99 mg/dL 03/03/2024 12:40 AM CDT RH LABORATORY POC Blood, Capillary BLOOD SPECIMEN / Unknown 03/03/2024 12:34 AM CDT 03/03/2024 12:40 AM CDT Ron Tripathi MD LAB - BEAKER POCT LABORATORY POC [facility] Lab [address] Lab (1st floor, no room number) [address] [place] [address] * Transfuse red blood cells (unit) (03/02/2024 [...] - BLOOD ORDERABL ES Performing Organization Address [facility]/ZIP Co de Phone Number [facility] [address] Lab (1st floor, no room number) [address] [place] [address] * (ABNORMAL) Glucose by meter (03/02/2024 9:34 PM CDT) GLUCOSE BY METER POCT 126(H) 70 - 99 mg/dL 03/02/2024 10:03 PM CDT RH LABORATORY POC Blood, Capillary BLOOD SPECIMEN / Unknown 03/02/2024 9:34 PM CDT 03/02/2024 10:03 PM CDT Narrative Authorizing Provider Result Lauren DEAN - BEAKER POCT LABORATORY [facility] [address] Lab (1st floor, no room number) [address] * (ABNORMAL) Glucose by meter (03/02/2024 9:01 PM CDT) GLUCOSE BY METER POCT 136(H) 70 - 99 mg/dL 03/02/2024 9:11 PM CDT RH LABORATORY POC Blood, Capillary BLOOD SPECIMEN / Unknown 03/02/2024 9:01 PM CDT 03/02/2024 9:11 PM CDT Ron Tripathi MD LAB - BEAKER POCT LABORATORY [facility] [address] [facility] Lab (1st floor, no room number) [address] * (ABNORMAL) Glucose by meter (03/02/2024 8:26 PM CDT) GLUCOSE BY METER POCT 65(L) 70 - 99 mg/dL 03/02/2024 8:34 PM CDT LABORATORY POC Blood, Capillary BLOOD SPECIMEN / Unknown 03/02/2024 8:26 PM CDT 03/02/2024 8:34 PM CDT Narrative Authorizing Provider Result Lauren Tripathi MD LAB - BEAKER POCT Performing Organization Address City/[facility]/ZIP Co de Phone Number LABORATORY [facility] Lab [address] Lab (1st floor, no room number) [address] * (ABNORMAL) Glucose by meter (03/02/2024 8:01 PM CDT) GLUCOSE BY METER POCT 54(L) 70 - 99 mg/dL 03/02/2024 8:27 PM CDT LABORATORY POC Blood, Capillary BLOOD SPECIMEN / Unknown 03/02/2024 8:01 PM CDT 03/02/2024 8:27 PM CDT Narrative Authorizing Provider Result Lauren Tripathi MD LAB - BEAKER POCT LABORATORY [facility] [address] Lab (1st floor, no room number) [place] [address] * (ABNORMAL) Glucose by meter (03/02/2024 7:45 PM CDT) GLUCOSE BY METER POCT 41(LL) 70 - 99 mg/dL 03/02/2024 7:55 PM CDT RH LABORATORY POC Blood, Capillary BLOOD SPECIMEN / Unknown 03/02/2024 7:45 PM CDT 03/02/2024 7:55 PM CDT Ron Tripathi MD LAB - BEAKER POCT Performing Organization Address City/[facility]/ZIP Co de Phone Number LABORATORY [facility] Lab [address] Lab (1st floor, no room number) [place] [address] * (ABNORMAL) Ammonia (on ice) (03/02/2024 3:55 PM CDT) Ammonia <10(L) 16 - 60 umol/L 03/02/2024 4:21 PM CDT RH LABORATORY Blood STRUCTURE OF RIGHT UPPER LIMB / Unknown Venipuncture / Unknown 03/02/2024 3:55 PM CDT 03/02/2024 3:57 PM CDT Raúl Bernard MD LAB - BLOOD ORDERABL ES Performing Organization Address City/[facility]/ZIP Co de Phone Number [facility] Lab [address] Lab (1st floor, no room number) [place] [address] * Prepare red blood cells (unit) (03/02/2024 3:29 PM CDT) Blood Component Type Red Blood Cells RH BLOOD BANK Product Code [id number] RH BLOO D BANK Unit Status Transfused RH BLOO D BANK Unit Number [id number] RH B LOOD BANK CROSSMATCH Compatible RH BLOOD BANK CODING SYSTEM [id number] RH BLO OD BANK ISSUE DATE AND TIME [id number] RH BLOOD BANK UNIT ABO/RH O+ RH BLOOD BANK UNIT TYPE ISBT 5100 RH BL OOD BANK 03/02/2024 3:29 PM CDT Raúl Bernard MD BLOOD BANK PRODUCT O RDERABLES Performing Organization Address [facility] Co de Phone Number RH BLOOD BANK [address] [place] [address] * Prepare red blood cells (unit) (03/02/2024 3:29 PM CDT) Blood Component Type Red Blood Cells RH BLOOD BANK Product Code [id number] RH BLOO D BANK Unit Status Transfused RH BLOO D BANK Unit Number [id number] RH B LOOD BANK CROSSMATCH Compatible RH BLOOD BANK CODING SYSTEM [id number] RH BLO OD BANK ISSUE DATE AND TIME [id number] RH BLOOD BANK UNIT ABO/RH O+ RH BLOOD BANK UNIT TYPE ISBT 5100 RH BL OOD BANK 03/02/2024 3:29 PM CDT Raúl Bernard MD BLOOD BANK PRODUCT O RDERABLES Performing Organization Address [facility] Co de Phone Number RH BLOOD BANK [address] [place] [address] * EKG 12-lead, tracing only (03/02/2024 2:00 PM CDT) Systolic Blood Pressure mmHg RADIOLOGY RESULTS Diastolic Blood Pressure mmHg RADIOLOGY RESULTS Ventricular Rate 82 BPM RAD IOLOGY RESULTS Atrial Rate 82 BPM RADIOLOG Y RESULTS LA Interval 210 ms RADIOLOG Y RESULTS QRS Duration 88 ms RADIOLO GY RESULTS QT 382 ms RADIOLOGY RESULTS QTc 446 ms RADIOLOGY RESULTS P [place] 45 degrees RADIOLOGY RESULTS R AXIS -7 degrees RADIOLOGY RESULTS T [place] 24 degrees RADIOLOGY RESULTS Interpretation ECG Sinus rhythm with 1st degree A-V block Inferior infarct , age undetermined Abnormal ECG When compared with ECG of 24-FEB-2024 10:12, No significant change was found Unconfirmed report - interpretation of this ECG is computer generated - see medical record for final interpretation Confirmed by - EMERGENCY ROOM, PHYSICIAN ([id number]), photographic editor YISSEL VELASQUEZ ([id number]) on 03/02/2024 3:43:16 PM RADIOLOGY RESULTS 03/02/2024 [...] the Xpert Xpress CoV2/Flu/RSV Assay on the [employer] GeneXpert Instrument. This test should be ordered [...] management. This test was validated by the [facility]. These laboratories are certified under the Clinical Laboratory Improvement Amendments of 1988 (CLIA-88) as qualified to perform high complexity laboratory testing. Raúl Bernard MD LAB - MICRO GENERAL ORDERABLES Performing Organization Address City/[facility]/ZIP Co de Phone Number [facility] Lab [address] Lab (1st floor, no room number) [place] [address] * Hemoglobin A1c (03/02/2024 1:56 PM CDT) Hemoglobin A1C 5.5 <5.7 % 03/02/2024 7:31 PM CDT RH LABORATORY Comment: Normal <5.7% Prediabetes 5.7-6.4% ?? Diabetes 6.5% or higher Note: Adopted from ADA consensus guidelines. Blood BLOOD SPECIMEN / Unknown Venipuncture / Unknown 03/02/2024 1:56 PM CDT 03/02/2024 2:15 PM CDT Ron Tripathi MD LAB - BLOOD ORDERABL ES Performing Organization Address [facility]/ZIP Co de Phone Number [facility] Lab [address] Lab (1st floor, no room number) [place] [address] * Adult Type and Screen (03/02/2024 1:56 PM CDT) ABO/RH(D) O POS 03/02/2024 2:59 PM CDT RH BLOOD BANK Antibody Screen Negative Negative 03/02/2024 2:59 PM CDT RH BLOOD BANK SPECIMEN EXPIRATION DATE [id number] 03/02/2024 2:59 PM CDT RH BLOOD BANK Blood BLOOD SPECIMEN / Unknown Venipuncture / Unknown 03/02/2024 1:56 PM CDT 03/02/2024 2:15 PM CDT Raúl Bernard MD LAB - BLOOD BANK SHANNON T ORDER Performing Organization Address City/[facility]/ZIP Co de Phone Number BLOOD BANK [address] [place] [id number] * (ABNORMAL) CBC with platelets and differential (03/02/2024 1:56 PM CDT) [facility] WBC Count 5.0 4.0 - 11.0 10e3/uL [...] Performing Organization Address City/[facility]/ZIP Co de Phone Number [facility] [address] Lab (1st floor, no room number) [id number] [place] [address] * (ABNORMAL) INR (03/02/2024 1:56 PM CDT) INR 2.09(H) 0.85 - 1.15 03/02/2024 3:14 PM CDT [facility] LABORATORY Blood BLOOD SPECIMEN / Unknown Venipuncture / Unknown 03/02/2024 1:56 PM CDT 03/02/2024 2:15 PM CDT Raúl Bernard MD LAB - BLOOD ORDERABL ES Performing Organization Address City/[facility]/ZIP Co de Phone Number [facility] [address] Lab (1st floor, no room number) [place] [phone] [place] [address] * (ABNORMAL) Comprehensive metabolic panel (03/02/2024 1:56 [...] Bernard MD LAB - BLOOD ORDERABL ES [facility] [address] Lab (1st floor, no room number) [place] [address] * Extra Heparinized Syringe (03/02/2024 1:56 PM CDT) Hold Specimen [facility] 03/02/2024 3:17 PM CDT [facility] Blood, venous BLOOD SPECIMEN / Unknown Venipuncture / Unknown 03/02/2024 1:56 PM CDT 03/02/2024 2:14 PM CDT Raúl Bernard MD LAB - BLOOD ORDERABL ES Performing Organization Address [facility]/ZIP Co de Phone Number [facility] [address] Lab (1st floor, no room number) [place] [address] * Extra Blood Bank Purple Top Tube (03/02/2024 1:56 PM CDT) Hold Specimen [facility] 03/02/2024 3:17 PM CDT [facility] Blood BLOOD SPECIMEN / Unknown Venipuncture / Unknown 03/02/2024 1:56 PM CDT 03/02/2024 2:15 PM CDT Raúl Bernard MD LAB - BLOOD ORDERABL ES [facility] [address] Lab (1st floor, no room number) [place] [address], [facility] * Extra Blood Bank Purple Top Tube (03/02/2024 1:56 PM CDT) Hold Specimen [facility] 03/02/2024 3:17 PM CDT [facility] LAB[facility] Blood BLOOD SPECIMEN / Unknown Venipuncture / Unknown 03/02/2024 1:56 PM CDT 03/02/2024 2:15 PM CDT Raúl Bernard MD LAB - BLOOD ORDERABL ES [facility] [address] Lab (1st floor, no room number) [place] [address] * Extra Purple Top Tube (03/02/2024 1:56 PM CDT) Hold Specimen [facility] 03/02/2024 3:17 PM CDT [facility] LAB[facility] Blood BLOOD SPECIMEN / Unknown Venipuncture / Unknown 03/02/2024 1:56 PM CDT 03/02/2024 2:15 PM CDT Raúl Bernard MD LAB - BLOOD ORDERABL ES Performing Organization Address [facility]/ZIP Co de Phone Number [facility] [address] Lab (1st floor, no room number) [place] [address], [facility] * Extra Green Top (Masury Heparin) Tube (03/02/2024 1:56 PM CDT) Hold Specimen [facility] 03/02/2024 3:17 PM CDT [facility] LAB[facility] Blood BLOOD SPECIMEN / Unknown Venipuncture / Unknown 03/02/2024 1:56 PM CDT 03/02/2024 2:15 PM CDT Raúl Bernard MD LAB - BLOOD ORDERABL ES [facility] [address] Lab (1st floor, no room number) [place] [address], [facility] * Extra Red Top Tube (03/02/2024 1:56 PM CDT) Hold Specimen [facility] 03/02/2024 3:17 PM CDT [facility] LAB[facility] Blood BLOOD SPECIMEN / Unknown Venipuncture / Unknown 03/02/2024 1:56 PM CDT 03/02/2024 2:15 PM CDT Raúl Bernard MD LAB - BLOOD ORDERABL ES [facility] [address] Lab (1st floor, no room number) [place] [address] * Extra Blue Top Tube (03/02/2024 1:56 PM CDT) Hold Specimen [facility] 03/02/2024 3:17 PM CDT LABORATORY Blood BLOOD SPECIMEN / Unknown Venipuncture / Unknown 03/02/2024 1:56 PM CDT 03/02/2024 2:15 PM CDT Raúl Bernard MD LAB - BLOOD ORDERABL ES Performing Organization Address City/[facility]/ZIP Co de Phone Number [facility] [address] Lab (1st floor, no room number) [place] [address] documented in this encounter Visit Diagnoses Diagnosis [...] PRN, Administer over 3-5 Minutes, Starting on Padmaja 03/08/24 at 1310, Intra-procedure $Given 03/08/2024 1:10 PM [...] Administer over 2 Minutes, PRN, Starting on Tue03/08/24 at 1309, Intra-procedure $Given 03/08/2024 1:09 PM [...] Szymanski RN) 2009 ($Given - Provider: Harriett Jacobsen, RN) No heparin via hemodialysis machine (COMPLETED) [...] RN)2352 (Not Given - Provider: Harriett Jacobsen, RN - Reason: IV Infusing) 0932 (Canceled [...] Dialysis 1000 ($New Bag - Provider: Melissa Drake, LINDA) sodium chloride 0.9% BOLUS 300 mL [...] dialysis., Starting on Tue03/06/24 at 1300, Until 03/12/24 at 1836 PRN Medication Order 03/10/2024 03/11/2024 [...] reversal, Starting on Tue03/02/24 at 192, Administer intramuscular if an intravenous route is [...] stools. documented in this encounter Care Teams Vibrator Equipment Tester Relationship Specialty Start Date End Date Cornell Butt PCP - General 06/24/11 documented as of this encounter
--- OUTSIDE RECORDS SUMMARY | 2024-06-04 11:06 | XMS_ITS | Encounter Summary ---
Author Organization Ranger Address [address] [facility] [place] [address] Care Team Providers Care Wide Piece Goods Inspector Name Role Phone Preet Huff Primary Care Provider [phone] Reason for Visit * Auth/Cert (Routine) Specialty Diagnoses / Procedures Referred By Contac t Referred To Contact Med Surg Diagnoses Black stool Anemia, unspecified type Anemia, unspecified type Black stool [facility] [address] [place] [address] Referral ID Status Reason Start Date Expiration Date Visits Re quested Visits Authorized [id number] 1 1 Encounter Details Date Type Department Care Team (Late st Contact Info) Description 03/06/2024 2:08 PM CDT Anesthesia Event [facility] [address] [place] [address] Nohemy Skinner MD [facility] [place] [address] [place], [place] [address] Anesthesia Record Procedure Summary Procedure Name Responsible Anesthesiologist Anesthesia Start Time Anesthesia Stop Time ESOPHAGOGASTRODUODENOSCOPY (Mouth) Nohemy Skinner MD 03/06/24 1408 03/06/24 1441 Events Date Time Event Comment 03/06/2024 1228 1230 RESEARCH AND EVALUATION MANAGER Ready for Procedure 1408 An Start 1410 An Start Data 1410 AN REASSESS I attest that I have identified and re-evaluated the patient immediately before the induction of anesthesia and I am satisfied that the anesthetic plan is suitable for the patient's condition and procedure. The first vital signs recorded are pre- induction. Raquel Antoine APRN RESEARCH AND EVALUATION MANAGER 1412 MD Present 1415 Anesthesia Ready for [...] Yes; 05/23/24; 1327 01/24/18 0900 by Esme Espinosa RN 05/23/24 1327 by Lilibeth Pena RN Peripheral IV 03/04/24; 1225; 22 G , 1 3/4 inch; B Suarez; Anterior, Distal, Right; Lower forearm; Chlorhexidine, Skin Barrier; None; 1; 1; Tolerated well 03/04/24 1225 by Paulina Kang RN 03/07/24 1320 by Anusha Lindsey RN [...] file Gender Identity Male 12/05/2017 10:39 AM CLASSIFICATION ANALYST Sexual Orientation Not on file documented [...] ESRD (end stage renal disease) (H) dialysis T--[facility] History of staph septicemia 12/20/2015 Hyperkalemia [...] alternatives discussed. Questions answered and patient/sales representative education courses(s) expressed understanding. - Discussed: - Discussed with: [...] Care Transfer Note - Raquel Antoine APRN RESEARCH AND EVALUATION MANAGER - 03/06/2024 2:41 PM CDT Patient: Herminio [...] Description 07/05/2024 1:15 PM CDT Office Visit [facility] [id number] [place] [address] [place] [address] Lizandro Barron MD [address] [facility] [address] [place], [place] [id number] documented as of this encounter Visit Diagnoses [...] mL/hr documented in this encounter Care Teams Wide Piece Goods Inspector Relationship Specialty Start Date End Date Preet Huff PCP - General 06/24/11 documented as of this encounter
--- OUTSIDE RECORDS SUMMARY | 2024-06-04 11:07 | XMS_ITS | Encounter Summary ---
Author Organization [facility] Address [address] [place] [id number] Care Team Providers Care Supervisor Publications Production Name Role Phone Cornell Butt Primary Care Provider [phone] Reason for Visit * Reason Comments Generalized Weakness * Auth/Cert (Routine) Specialty Diagnoses / Procedures Referred By Contac t Referred To Contact Med Surg Diagnoses Black stool Anemia, unspecified type Anemia, unspecified type Black stool Rh 5 Medical Surgical [address] [place] [address] Referral ID Status Reason Start Date Expiration Date Visits Re quested Visits Authorized [id number] 1 1 Encounter Details Date Type Department Care Team (Late st Contact Info) Description 03/06/2024 1:00 PM CDT - 03/06/2024 2:10 PM CDT Surgery [facility] PeriOp Services [address] [place] [address] Eileen Earl MD [facility] [address] [place] [id number] ESOPHAGOGASTRODUODENOSCOPY Surgery Details Date/Time Status Location OR [...] file Gender Identity Male 12/05/2017 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 [facility] Hospital Hospitalist Discharge Summary Date of [...] the patient was re cently hospitalized at [facility] from 02/23 to 02/25 for the treatment [...] minutes discharging this patient. Nicolasa Luke DO [facility] 5 MEDICAL SURGICAL [address] [facility] [address] Physical Exam Vital Signs: Temp: 98.4 ??F [...] US UPPER EXTREMITY VENOUS DUPLEX RIGHT LOCATION: [facility] DATE: 03/07/2024 INDICATION: Swelling, looking for [...] EXAM: XR CHEST PORT 1 VIEW LOCATION: [facility] DATE: 03/11/2024 INDICATION: Shortness of breath [...] Refills: 3 Associated Diagnoses: Mixed hyperlipidemia B Vkzexwz-G-Kfpui Acid (WESCAPS PO) Take 1 capsule by [...] sent through Care Everywhere. * Colon Polyps (Guatemalan) documented in this encounter Medications at Time of Discharge Medication Sig Dispensed Refills Start Date End Date B Cfmpxtx-K-Hrmsh Acid (WESCAPS PO) Take 1 capsule by [...] Date: 03/12/2024 Discharge Disposition: Home Discharge Services: STRIKE OUT MACHINE OPERATOR Discharge DME: None Discharge Transportation: agency, other (see comments) ([place] [facility]) Private pay costs discussed: transportation costs Education Provided on the Discharge Plan: yes Persons Notified of Discharge Plans: Aunsalvador Renee Patient/Family in Agreement with the Plan: yes Handoff Referral Completed: No Additional Information: Medically ready for discharge home today with mother and Aunt. Contacted Aunsalvador Renee to confirm that transportation needed to be set up. She stated they use [facility] for his dialysis appointments. Called [facility] and they are unable to provide transportation on short notice and they would not have openings today. Discussed with patients Aunt and she is agreeable to having CM set up [facility] transport and is aware of the potential cost if insurance does not cover. Contacted [facility] and transport set up for [phone]. Aunt will be at home to accept and she confirms a ramp in the rear of the home. Lynne Cárdenas RN BSN OCN Bulk Clerk [facility] [phone] * Lynne Cárdenas RN - 03/12/2024 1:41 PM CDT Care Management Discharge Note Discharge Date: 03/12/2024 Discharge Disposition: Home Discharge Services: STRIKE OUT MACHINE OPERATOR Discharge DME: None Discharge Transportation: agency, other (see comments) ([place] out [facility] [place]) Private pay costs discussed: Not applicable Does [...] reach her or aunt who is patients STRIKE OUT MACHINE OPERATOR. Left voice mail. Lynne Cárdenas PAPER PATTERN FOLDER [facility]CN Bulk Clerk [facility] [phone] * Melissa Dewey RN - 03/12/2024 12:36 [...] checked every 4 hours. Outpatient Dialysis at [facility]. Patient repositioned every 2 hours during [...] Interval History: Dialysis run parameters reviewed with sulfur chloride operator at patient bedside. Seen on run Resting [...] interval not displayed. Wojciech Holman MD [facility] Consultants - Nephrology [phone] * Jose Enrique Naylor MD - 03/11/2024 10:24 AM CDT Chart reviewed. Labs and vitals reviewed. Sodium better at 126. Potassium okay. No indication for dialysis today. Noted an episode of vomiting and SOW MANAGER. Chest x-ray appears clear without pulmonary congestion [...] interval not displayed. Jose Enrique Naylor MD [facility] Consult[facility] - Nephrology [phone] * Nicolasa Luke DO - 03/11/2024 9:13 AM CDT [facility] Medicine Progress Note - Hospitalist Service Date [...] the patient was re cently hospitalized at [facility] from 02/23 to 02/25 for the treatment [...] 1 unit with hgb this AM 7.8 -SOW MANAGER overnight had episode of emesis, CPAP was [...] of 03/03. Appeared to be asymptomatic - SOW MANAGER called for EGD 03/06 because of hypoglycemia. [...] with Mother and Aunt (who is his STRIKE OUT MACHINE OPERATOR) Hx of CVA Legally Blind Hypertension Hyperlipidemia [...] with help/services Nicolasa Luke DO Hospitalist Service [facility] Securely message with Jakob (more info) Text page via [employer] Paging/Directory Physical Exam Vital Signs: Temp: 98.7 [...] Jacobsen RN - 03/11/2024 3:23 AM CDT SOW MANAGER called. Patient had received 1 unit of blood earlier in the evening. Had cpap put on for the night. full time staff interpreter and leader writer came into the room and cpap mask was off and patient was on his left side and had vomited. Emesis was yellow in color with some food chunks. Vomit was not evident in the cpap mask. Respiratory was paged and came to see the patient at the bedside. Cross cover was also paged. SOW MANAGER was then called incase patient had aspirated on vomit. Cpap was not placed back on patient after emesis episode. * Portia Domingo RT - 03/11/2024 3:10 AM CDT Attended SOW MANAGER that was called due to pt vomiting. [...] - 03/11/2024 3:07 AM CDT Responded to SOW MANAGER called for an episode of emesis. Patient [...] Romero DO - 03/10/2024 10:27 AM CDT [facility] Hospitalist Progress Note Name: Herminio Victor Provider: aAshish Romero DO Date of Service: 03/10/2024 Summary of Stay: Herminio Victor is a 58 year old male with a history of cognitive impairment, ESRD on HD (MWF), history of DVT on warfarin, type 2 diabetes mellitus, legally blind, history of CVA, hypertension, hyperlipidemia, SHIRLEY with CPAP, obesity admitted on 03/02/2024 with melena. Of note, the patient was recently hospitalized at [facility] from 02/23 to 02/25 for the treatment [...] for recheck this evening. Updated mother Arianna Flynn/STRIKE OUT MACHINE OPERATOR Thelma via phone. All questions answered. Problem [...] of 03/03. Appeared to be asymptomatic - SOW MANAGER called for EGD 03/06 because of hypoglycemia. [...] with Mother and Aunt (who is his STRIKE OUT MACHINE OPERATOR) Hx of CVA Legally Blind Hypertension Hyperlipidemia [...] the past 24 hour(s)). Aashish Romero DO [facility] Hospitalist [address] [place] [address] Securely message with [employer] (more info) Text page via [facility] [employer] Paging/Directory 03/10/2024 * Portia Domingo RT - [...] given low sodium Jose Enrique Naylor MD [facility] Consultants - Nephrology [phone] Interval History : Seen / examined on [...] and thrill Labs: All labs reviewed by pr Electrolytes/Renal - Recent Labs Lab Test 03/09/24 [...] Labs Lab Test 03/09/24 0912 03/09/24 0549 03/08/242235 02/29/24 0104 03/06/24 1628 03/05/24 1212 03/05/24 0735 [...] -- -- -- -- -- 28 25 PROTTOTAL -- -- -- -- [...] 20 mg 20 mg Oral QPM Eileen Ealr MD 20 mg at 03/08/24 204 calcium [...] including patient evaluation, reviewing documentation/test results, and tape recorder repairer. Discussed with Dr. Earl. Will no longer follow. Please call with questions or change in condition. Ebony Cheek PA-C [facility] ( [facility]) [...] to treatment See Adult Hemodialysis flowsheet in CMP.LY for further details and post assessment. Machine [...] Cheek MD - 03/09/2024 8:28 AM CDT [facility] Medicine Progress Note - Hospitalist [...] the patient was re cently hospitalized at [facility] from 02/23 to 02/25 for the treatment [...] of 03/03. Appeared to be asymptomatic - SOW MANAGER called for EGD 03/06 because of hypoglycemia. [...] with Mother and Aunt (who is his STRIKE OUT MACHINE OPERATOR) Hx of CVA Legally Blind Hypertension Hyperlipidemia [...] 2-4 Days Antonino Cheek MD Hospitalist Service [facility] Securely message with [employer] (more info) Text page via [facility] Paging/Directory Interval History Denies any symptoms [...] values in this interval not displayed. Jose Enriqeu Naylor MD [facility] - Nephrology [phone] * Antonino Cheek MD - 03/08/2024 8:22 AM CDT [facility] Medicine Progress Note - Hospitalist [...] the patient was re cently hospitalized at [facility] from 02/23 to 02/25 for the treatment [...] of 03/03. Appeared to be asymptomatic - SOW MANAGER called for EGD 03/06 because of hypoglycemia. [...] with Mother and Aunt (who is his STRIKE OUT MACHINE OPERATOR) Hx of CVA Legally Blind Hypertension Hyperlipidemia [...] 2-4 Days Antonino Cheek MD Hospitalist Service [facility] Securely message with [employer] (more info) Text page via [facility] Paging/Directory Interval History Patient denies chest [...] Pulse: 81 Resp: 18 SpO2: 91 % [id number]: Nasal cannula Oxygen Delivery: 2 LPM Weight: [...] US UPPER EXTREMITY VENOUS DUPLEX RIGHT LOCATION: [facility] DATE: 03/07/2024 INDICATION: Swelling, looking for [...] every 4 hours. Outpatient Dialysis at [facility] Patient repositioned every 2 hours during the treatment. Pre & Post treatment report called to Anusha Lindsey RN Please note: Please remove patient dressing on AVF and AVG needle sites 24 hours after dialysis. Ifleaking occurs please apply a Band-Aid. Melissa Newton RN * Antonino Cheek MD - 03/07/2024 4:12 PM CDT [facility] Medicine Progress Note - Hospitalist Service Date [...] the patient was re cently hospitalized at [facility] from 02/23 to 02/25 for the treatment [...] of 03/03. Appeared to be asymptomatic - SOW MANAGER called for EGD 03/06 because of hypoglycemia. [...] with Mother and Aunt (who is his STRIKE OUT MACHINE OPERATOR) Hx of CVA Legally Blind Hypertension Hyperlipidemia [...] 2-4 Days Antonino Cheek MD Hospitalist Service [facility] Securely message with [employer] (more info) Text page via [facility] Paging/Directory Interval History Patient denies symptoms, [...] given low sodium Jose Enrique Naylor MD [facility] - Nephrology [phone] Interval History : Seen / examined. No [...] and thrill Labs: All labs reviewed by pr Electrolytes/Renal - Recent Labs Lab Test 03/07/24 [...] including patient evaluation, reviewing documentation/test results, and tape recorder repairer. Discussed with Dr. Janette Cheek PA-C [facility] ( [facility]) * Byron [...] diet. Patient is due for dialysis tomorrow. [facility] unable to complete colonoscopy today due to lack of preparation. I will discuss with them the convenience to wait 1 more day before colonoscopy. * Megan Salazar - 03/06/2024 4:20 PM CDT [facility] Progress Note MS 5 Responded to patient's room regarding overhead Adult Rapid Response CODE. Patient receiving cares. No family present. SHS not needed. SHS remains available. Rev. Edna Hameed.Div. Staff Integration Software Developer * Janine Irvin RN - 03/06/2024 3:35 [...] use as able. Jose Enrique Naylor MD [facility] - Nephrology [phone] * Antonino Cheek MD - 03/06/2024 7:30 AM CDT [facility] Medicine Progress Note - Hospitalist Service Date [...] the patient was re cently hospitalized at [facility] from 02/23 to 02/25 for the treatment [...] with Mother and Aunt (who is his STRIKE OUT MACHINE OPERATOR) Hx of CVA Legally Blind Hypertension Hyperlipidemia [...] 2-4 Days Antonino Cheek MD Hospitalist Service [facility] Securely message with [employer] (more info) Text page via [facility] Paging/Directory Interval History Patient denies symptoms but [...] Pulse: 89 Resp: 18 SpO2: 98 % T5Lzwkdw: BiPAP/CPAP Weight: 185 lbs 13.56 oz GEN: [...] given low sodium Jose Enrique Naylor MD [facility] - Nephrology [phone] Interval History : Seen / examined. Appears [...] me Electrolytes/Renal - Recent Labs Lab Test 03/05/24 [...] Cheek MD - 03/05/2024 8:33 AM CDT [facility] Medicine Progress Note - Hospitalist [...] the patient was re cently hospitalized at [facility] from 02/23 to 02/25 for the treatment [...] with Mother and Aunt (who is his STRIKE OUT MACHINE OPERATOR) Hx of CVA Legally Blind Hypertension Hyperlipidemia [...] 2-4 Days Antonino Cheek MD Hospitalist Service [facility] Securely message with [employer] (more info) Text page via [facility] Paging/Directory Interval History Patient is not [...] [facility] [phone] SUBJECTIVE: Denies pain or new symptoms OBJECTIVE: [...] Romero DO - 03/04/2024 10:01 AM CDT [facility] Hospitalist Progress Note Name: Herminio Victor [...] note, the patient was recently hospitalized at [facility] from 02/23 to 02/25 for the treatment [...] improves with food today. Updated Aunt and STRIKE OUT MACHINE OPERATOR Thelma via phone. All questions answered. Problem [...] with Mother and Aunt (who is his STRIKE OUT MACHINE OPERATOR) Hx of CVA Legally Blind Hypertension Hyperlipidemia [...] not apply See Admin Instructions Aashish Romero, atorvastatin (LIPITOR) tablet 20 mg 20 mg [...] the past 24 hour(s)). Aashish Romero DO [facility] Hospitalist Oneyda Veliz [facility] [place] [address] Securely message with [employer] (more info) Text page via [facility] Paging/Directory 03/04/2024 * Douglas Zarate RT [...] 03/03/2024 at 10:21 PM * Nick Aashish Avina DO - 03/03/2024 12:46 PM CDT [facility] Hospitalist Progress Note Name: Herminio Victor [...] note, the patient was recently hospitalized at [facility] from 02/23 to 02/25 for the treatment [...] with Mother and Aunt (who is his STRIKE OUT MACHINE OPERATOR) Hx of CVA Legally Blind Hypertension Hyperlipidemia [...] QAM Ron Tripathi MD 100 mg at 03/03/2415 multivitamin RENAL (TRIPHROCAPS) capsule Oral QPM Ron [...] the past 24 hour(s)). Aashish Romero DO [facility] Hospitalist [place] [address] Securely message with [employer] ([employer] info) Text page via [facility] Paging/Directory 03/03/2024 * Bella Argueta RN - 03/03/2024 10:46 AM CDT DATE/TIME OF CALL RECEIVED FROM LAB: 03/03/24 at 10:47 AM LAB TEST: blood glucose LAB VALUE: 56 PROVIDER NOTIFIED?: Yes PROVIDER NAME: Dr. Delfin Romero DATE/TIME LAB VALUE REPORTED TO PROVIDER: 103 MECHANISM OF PROVIDER NOTIFICATION: [id number] PROVIDER RESPONSE: Administer IV Dextrose and recheck blood glucose in 15 minutes ++++++++++++++++++++++++++++++++++++ DATE/TIME OF CALL RECEIVED FROM LAB: 03/03/24 at 11:15 am LAB TEST: Blood glucose LAB VALUE: 39 PROVIDER NOTIFIED?: Yes PROVIDER NAME: Delfin Romero DATE/TIME LAB VALUE REPORTED TO PROVIDER: 03/03/24 at 11:18 am MECHANISM OF PROVIDER NOTIFICATION: [id number] PROVIDER RESPONSE: Additional IV dose of Dextrose [...] Tripathi MD - 03/02/2024 4:41 PM CDT [facility] History and Physical - Hospitalist Service [...] has memory issues and onto his primary STRIKE OUT MACHINE OPERATOR. Per aunt, patient always had cognitive deficits [...] 2-4 Days Ron Tripathi MD Hospitalist Service [facility] Securely message with [employer] (more info) Text page via [facility] Paging/Directory Chief Complaint Melanotic stools. History [...] ESRD (end stage renal disease) (H) dialysis T--[facility] History of staph septicemia 12/20/2015 Hyperkalemia [...] CREATE FISTULA ARTERIOVENOUS LOWER EXTREMITY; Surgeon: Jaxon uBenrostro MD; Location: OR CREATE FISTULA ARTERIOVENOUS LOWER [...] Procedure: CREATE GRAFT ARTERIOVENOUS LOWER EXTREMITY; Surgeon: Jxaon Buenrostro MD; Location: OR ESOPHAGOSCOPY, GASTROSCOPY, DUODENOSCOPY [...] Dose Informant Patient Reported? Taking? BISACODYL PO Shank Turner Yes No Sig: Take 10 mg by [...] PM CDTAssociated Order(s): Single Lumen Midline Placement [facility] Single Lumen Midline Placement Date/Time: 03/07/2024 1:34 [...] the procedure a time out was called [place] Protocol: the Joint Commission [place] Protocol was followed Preparation: Patient was prepped [...] size: 4 Fr Brand: Bard Lot number: [id number] Placement method: venipuncture, MST and ultrasound Number [...] 02/23-02/25 for melanotic stools, legally blind. Admit /: Acute on chronic anemia. NUTRITION HISTORY - [...] Lopez RDN, LD Clinical Dietitian 3rd floor/ICU: [phone] All other floors: [phone] Weekend/holiday: [phone] Office: [phone] * Job Her MD - 03/04/2024 12:38 [...] file Other Topics Concern Parent/sibling w/ CABG, OR or angioplasty before 65F 55M? Not Asked Social History Narrative Not on file Social Determinants of Health Financial Resource Strain: Low Risk (06/23/2022) Received from [facility] Financial Resource Strain Difficulty of Paying Living Expenses: 3 Difficulty of Paying Living Expenses: Not on file Food Insecurity: No Food Insecurity (06/23/2022) Received from [facility] [employer] [facility] [employer] [facility] Food Insecurity Worried About Running Out of Food in the Last Year: 1 Transportation Needs: No Transportation Needs (06/23/2022) Received from [facility] [email or web address] [facility] Transportation Needs Lack of Transportation (Medical): 1 Physical Activity: Not on file Stress: Not on file Social Connections: Unknown (06/24/2023) Received from [facility] [employer] [facility] [employer] [facility] Social Connections Frequency of Communication with Friends and Family: Not on file Interpersonal Safety: Not on file Housing Stability: Low Risk (06/23/2022) Received from [facility] [employer] [facility] [employer] [facility] Housing Stability Unable to Pay for [...] MD [facility] - Nephrology Office Pager: [phone] * Paul Rasmussen MD - 03/03/2024 3:58 PM CDTAssociated Order(s): GASTROENTEROLOGY IP CONSULT Images from the original note were not included. GASTROENTEROLOGY CONSULTATION Herminio Victor [address] [place] [id number] 58 year old male Admission Date/Time: 03/02/2024 [...] [facility] [phone] HPI: Herminio Victor is a 58 year [...] evening 12/19/17 Yes Estrella Guillen MD B Relhhdy-K-Fmilw Acid (WESCAPS PO) Take 1 capsule by [...] 0.6 ALT 25 -- 21 16 AST - 17 LIPASE -- -- -- 154 I reviewed the patient's new imaging results. Total time: 50 minutes. * Michelle Bird RN - 03/03/2024 10:10 AM CDTAssociated Order(s): CARE MANAGEMENT / SOCIAL WORK IP CONSULT Care Management Initial Consult General Information Assessment completed with: Family, aunsalvador Renee Type of CM/SW Visit: Initial Assessment Primary Care Provider verified and updated as needed: Yes Readmission within the last 30 days: previous discharge plan unsuccessful Reason for Consult: discharge planning, care coordination/care conference Advance Care Planning: Communication Assessment Patient's communication style: spoken language (Guatemalan or Bilingual) Hearing Difficulty or Deaf: no [...] Support: Care provided by: other (see comments) (STRIKE OUT MACHINE OPERATOR- aunt Thelma) Provides care for: no one, [...] Insecurity: No Food Insecurity (06/23/2022) Received from [facility] Food Insecurity Worried About Running Out of Food in the Last Year: 1 Depression: Not at risk (05/22/2020) Received from [facility] PHQ-2 PHQ-2 Score: 0 Housing Stability: Low Risk (06/23/2022) Received from [facility] Housing Stability Unable to Pay for Housing in the Last Year: 1 Tobacco Use: Low Risk (02/25/2024) Patient History Smoking Tobacco Use: Never Smokeless Tobacco Use: Never Passive Exposure: Not on file Financial Resource Strain: Low Risk (06/23/2022) [facility] Financial Resource Strain Difficulty of Paying Living Expenses: 3 Difficulty of Paying Living Expenses: Not on file Alcohol Use: Not on file Transportation Needs: No Transportation Needs (06/23/2022) Received from [facility] Transportation Needs Lack of Transportation (Medical): 1 Physical Activity: Not on file Interpersonal Safety: Not on file Stress: Not on file Social Connections: Unknown (06/24/2023) Received from [facility] Social Connections Frequency of Communication with [...] mother and aunt. His aunt is his STRIKE OUT MACHINE OPERATOR and has 40 hours per week.He receives assistance with all ADL's and IADL's except eating. He is legally blind so he needs assistance with ambulating, positioning and transfers too. He ambulates without any assistive devices.He receives Dialysis on MWF at [facility] in [place] per his aunt report.His transportation company [employer] in [place]. Their Phone number is [phone] and they are open M-F , 7 AM to 5 pm. CM will monitor for any discharge needs. Laura Bird RN, BSN, CM Inpatient Care Coordination [facility] [phone] documented in this encounter ED Notes * Albina Sneed RN - 03/02/2024 5:43 PM CDT [facility] ED Nurse Handoff Report ED Chief complaint: Generalized Weakness . ED Diagnosis: Final diagnoses: Anemia, unspecified type Black stool Allergies: Allergies Allergen Reactions Dihydroxyaluminum Aminoacetate Nausea GI bleeding Aspirin GI Disturbance and Rash PN: LW Reaction: unknown Code Status: Full Code Activity level - Baseline/Home: lift. Activity Level - Current: bed Lift room needed: No. Bariatric: No Flight Control Specialist Needed: No Isolation: No. Infection: Not Applicable. [...] POS Antibody Screen Negative SPECIMEN EXPIRATION DATE [id number] PREPARE RED BLOOD CELLS (UNIT) Blood Component Type Red Blood Cells Product Code O6848W95 Unit Status Transfused Unit Number [id number] CROSSMATCH Compatible CODING SYSTEM [id number] ISSUE DATE AND TIME [id number] UNIT ABO/RH O+ UNIT TYPE ISBT 5100 PREPARE RED BLOOD CELLS (UNIT) Blood Component Type Red Blood Cells Product Code F9684G11 Unit Status Ready for issue Unit Number [id number] CROSSMATCH Compatible CODING SYSTEM [id number] PREPARE RED BLOOD CELLS (UNIT) TRANSFUSE RED [...] on March 02, 2024 at 6:24 PM Krupa Robert called the ED to inform them the [...] time: 1:38 PM Means of arrival: Comments: Johnson [facility] * Raúl Bernard MD - 03/02/2024 1:54 [...] POS Antibody Screen Negative SPECIMEN EXPIRATION DATE [id number] PREPARE RED BLOOD CELLS (UNIT) Blood Component Type Red Blood Cells Product Code [id number] Unit Status Ready for issue Unit Number [id number] CROSSMATCH Compatible CODING SYSTEM [id number] PREPARE RED BLOOD CELLS (UNIT) Blood Component Type Red Blood Cells Product Code [id number] Unit Status Ready for issue Unit Number [id number] CROSSMATCH Compatible CODING SYSTEM [id number] PREPARE RED BLOOD CELLS (UNIT) ABO/RH TYPE [...] / Diagnosis [facility] Diagnoses: None MIPS None MDM Herminio Victor [...] LAVINIA ENRIQUEZ, am serving as a scribe adjunct trainer at 2:09 PM on 03/02/2024 to [...] pt. * Pharmacy-Anticoagulation Service - Ryann Armando [facility] - 03/12/2024 2:15 PM CDT Images from the original note were not included. 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 INR Goal= 2-3. Warfarin CONSULTING PSYCHIATRIST Regimen: 5mg M-F Anticoagulation Dose History More [...] 6:47 AM CDT Assumed care Assumed care [id number]. A&Ox3, disoriented to time and can be [...] Documentation Taken 03/11/2024 1950 by Harriett Jacobsen, corporate account executive Review/Management: medications reviewed Problem: Adult Inpatient Plan [...] shift note. Outcome: Progressing Flowsheets (Taken 03/11/2024 1859) Outcome Evaluation: Bp controlled w/ scheduled meds. [...] Flowsheet Documentation Taken 03/11/2024835 by Raul Carter corporate account executive Review/Management: medications reviewed Goal: Blood Pressure in Desired Range Outcome: Progressing Intervention: Maintain Blood Pressure Management Recent Flowsheet Documentation Taken 03/11/2024 0836 by Raul Carter RN Medication Review/Management: medications reviewed * Plan of Care - Harriett Jacobsen RN - 03/11/2024 5:48 AM CDT Assumed care [id number]. A&Ox4, but can be confused intermittently. On RA and cpap at night. On a renal diet and needs help ordering/tray set-up. Has midline to L arm that is saline locked. Got 1 unit of blood. BG checks: 148, 120, 94. 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 Denies pain. Plan [...] Flowsheet Documentation Taken 03/10/20242319 by Harriett Jacobsen corporate account executive Review/Management: medications reviewed Problem: Adult Inpatient Plan [...] Date/Time: 03/11/2024 0241 Mechanism of Provider Notification: [employer] messaging Purpose of Notification: FYI- Patient got [...] Progressing * Pharmacy-Anticoagulation Service - Nivia Mahan [facility] - 03/10/2024 12:35 PM CDT Clinical Pharmacy - Warfarin Dosing Consult Pharmacy has been consulted to manage this patient???s warfarin therapy. Indication: DVT/ PE Treatment Therapy Goal: INR 2-3 Warfarin Prior to Admission: Yes Warfarin CONSULTING PSYCHIATRIST Regimen: 5mg M-F Dose Comments: 5mg today [...] pain/SOB/Nausea * Plan of Care - Diego Oesi RN - 03/08/2024 11:05 PM CDT Pertinent [...] Flowsheet Documentation Taken 03/08/20241823 by Diego Osei retail assistant manager Interventions: declines Goal: Readiness for Transition of [...] hemodialysis machine Does not apply Once Jose Enirque Naylor MD ondansetron (ZOFRAN ODT) ODT tab [...] ESRD (end stage renal disease) (H) dialysis [facility] History of staph septicemia 12/20/2015 Hyperkalemia [...] 30 tablet 3 03/01/2024 at PM B Brpnzmo-S-Rnbnj Acid (WESCAPS PO) Take 1 capsule by [...] 1 mg Subcutaneous Q15 Min PRN Eileen aErl MD lidocaine (LMX4) cream Topical Q1H PRN [...] Documentation Taken 03/07/2024929 by Anusha Lindsey, LINDA VTE Prevention/Management: SCDs (sequential compression devices) off Goal: Optimal Comfort and Wellbeing Outcome: Progressing Goal: Readiness for Transition of Care Outcome: Progressing * Plan of Care - Byron Camarillo RN - 03/07/2024 7:51 AM CDT For vital signs and complete assessments, please see documentation flowsheets. [id number] Pertinent assessments:Pt disoriented to time & situation [...] of 36 at upon arrival from PACU, SOW MANAGER called. PRN D50% 50ml given via IV. [...] and complete assessments, please see documentation flowsheets. [phone] Pertinent assessments:Pt disoriented to time. CPAP in [...] rest/sleep promoted Goal: Optimal Comfort and Wellbeing 03/06/2024 06 by Byron Camarillo RN Outcome: Progressing 03/06/2024 06 by Byron Camarillo RN Outcome: Progressing Goal: Readiness for Transition of Care 03/06/2024616 by Byron Camarillo RN Outcome: Progressing 03/06/2024612 by Byron Camarillo RN Outcome: Progressing Problem: Gastrointestinal Bleeding Goal: Optimal Coping with Acute Illness 03/06/2024 06 by Byron Camarillo RN Outcome: Progressing 03/06/2024 06 by Byron Camarillo RN Outcome: Progressing Goal: Hemostasis 03/06/2024 06 by Byron Camarillo RN Outcome: Progressing 03/06/2024 06 by Byron Camarillo RN Outcome: Progressing Problem: Glycemic Control Impaired Goal: Blood Glucose Level Within Targeted Range 03/06/2024616 by Byron Camarillo RN Outcome: Progressing 03/06/2024 06 by Byron Camarillo RN Outcome: Progressing Goal: Minimize Risk of Hypoglycemia 03/06/2024616 by Byron Camarillo RN Outcome: Progressing 03/06/2024 06 by Byron Camarillo RN Outcome: Progressing Problem: [...] and complete assessments, please see documentation flowsheets. [phone] Pertinent assessments: Pt disoriented to time. CPAP [...] shift note. 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 Information Source(s): Patient's Aunt, ThelmaDottie/[employer] via phone Pertinent Information: None Changes made to CONSULTING PSYCHIATRIST medication list: Added: Senna Deleted: Bisacodyl, Lisinopril (Thelma states she was told to stop giving this last week) Changed: None Allergies reviewed with patient and updates made in EHR: no Medication History Completed By: Quang Gee RPH 03/02/2024 5:32 PM CONSULTING PSYCHIATRIST Med List Medication Sig Last Dose amLODIPine (NORVASC) 5 MG tablet Take 5 mg by mouth daily 03/02/2024 at AM atorvastatin (LIPITOR) 20 MG tablet Take 1 tablet (20 mg) by mouth every evening 03/01/2024 at PM B Fytsoun-K-Ydaql Acid (WESCAPS PO) Take 1 capsule by [...] Description 07/05/2024 1:15 PM CDT Office Visit [address] [address] Lizandro Barron MD [address] [id number] documented as of this encounter Procedures Procedure [...] Glucose by meter (03/12/2024 12:00 PM CDT) [facility] GLUCOSE BY METER POCT 92 70 - 99 mg/dL 03/12/2024 12:10 PM CDT RH LABORATORY POC Blood, Capillary BLOOD SPECIMEN / Unknown 03/12/2024 12:00 PM CDT 03/12/2024 12:10 PM CDT Ron DEAN - BEAKER POCT RH LABORATORY POC [facility] [address] Lab (1st floor, no room number) [place] [address], [facility] * Glucose by meter (03/12/2024 7:51 AM CDT) GLUCOSE BY METER POCT 92 70 - 99 mg/dL 03/12/2024 7:58 AM CDT LABORATORY POC Blood, Capillary BLOOD SPECIMEN / Unknown 03/12/2024 7:51 AM CDT 03/12/2024 7:58 AM CDT Ron Trpiathi MD LAB - BEAKER POCT LABORATORY [facility] [address] Lab (1st floor, no room number) [place] [address] * Glucose (03/12/2024 6:06 AM CDT) Glucose 77 70 - 99 mg/dL 03/12/2024 6:35 AM CDT RH LABORATORY Blood STRUCTURE OF RIGHT UPPER LIMB / Unknown Venipuncture / Unknown 03/12/2024 6:06 AM CDT 03/12/2024 6:10 AM CDT Ron Tripathi MD LAB - BLOOD ORDERABL ES Performing Organization Address City/[facility]/ZIP Co de Phone Number [facility] [address] Lab (1st floor, no room number) [place] [address] * (ABNORMAL) Hemoglobin (03/12/2024 6:06 AM CDT) Hemoglobin 8.1(L) 13.3 - 17.7 g/dL 03/12/2024 6:14 AM CDT RH LABORATORY Blood STRUCTURE OF RIGHT UPPER LIMB / Unknown Venipuncture / Unknown 03/12/2024 6:06 AM CDT 03/12/2024 6:10 AM CDT Aashish Romero DO LAB - BLOOD ORDER NADIA [facility] [address] Lab (1st floor, no room number) [place] [address], [facility] * (ABNORMAL) Renal panel (03/12/2024 6:06 [...] Performing Organization Address City/[facility]/ZIP Co de Phone Number LABORATORY [facility] [address] Lab (1st floor, no room number) [place] [phone] [place] [address] * (ABNORMAL) INR (03/12/2024 6:06 AM CDT) INR 1.20(H) 0.85 - 1.15 03/12/2024 6:25 AM CDT RH LABORATORY Blood STRUCTURE OF RIGHT UPPER LIMB / Unknown Venipuncture / Unknown 03/12/2024 6:06 AM CDT 03/12/2024 6:10 AM CDT Eileen Earl MD LAB - BLOOD ORDERA BLERobin Performing Organization Address [facility]/ZIP Co de Phone Number LABORATORY [facility] [address] Lab (1st floor, no room number) [place] [address] * (ABNORMAL) Glucose by meter (03/12/2024 1:55 AM CDT) GLUCOSE BY METER POCT 107(H) 70 - 99 mg/dL 03/12/2024 2:01 AM CDT LABORATORY POC Blood, Capillary BLOOD SPECIMEN / Unknown 03/12/2024 1:55 AM CDT 03/12/2024 2:01 AM CDT Ron Tripathi MD LAB - BEAKER POCT LABORATORY POC [facility] [address] Lab (1st floor, no room number) [place] [phone], [facility] * (ABNORMAL) Glucose by meter (03/11/2024 9:11 PM CDT) GLUCOSE BY METER POCT 132(H) 70 - 99 mg/dL 03/11/2024 9:18 PM CDT RH LABORATORY POC Blood, Capillary BLOOD SPECIMEN / Unknown 03/11/2024 9:11 PM CDT 03/11/2024 9:18 PM CDT Ron DEAN - BEXIANG POCT LABORATORY [facility] [address] Lab (1st floor, no room number) [place] [address] * (ABNORMAL) Hemoglobin (03/11/2024 6:10 PM CDT) Hemoglobin 8.8(L) 13.3 - 17.7 g/dL 03/11/2024 6:22 PM CDT LABORATORY Blood STRUCTURE OF RIGHT UPPER LIMB / Unknown Venipuncture / Unknown 03/11/2024 6:10 PM CDT 03/11/2024 6:20 PM CDT Aashish Romero DO LAB - BLOOD ORDER NADIA Performing Organization Address City/[facility]/ZIP Co de Phone Number [facility] Lab [address] Lab (1st floor, no room number) [place] [address], [facility] * (ABNORMAL) Glucose by meter (03/11/2024 5:31 PM CDT) GLUCOSE BY METER POCT 144(H) 70 - 99 mg/dL 03/11/2024 5:39 PM CDT LABORATORY POC Blood, Capillary BLOOD SPECIMEN / Unknown 03/11/2024 5:31 PM CDT 03/11/2024 5:39 PM CDT Ron DEAN - DAVID POCT LABORATORY [facility] [address] Lab (1st floor, no room number) [place] [address] * (ABNORMAL) Glucose by meter (03/11/2024 11:47 AM CDT) GLUCOSE BY METER POCT 117(H) 70 - 99 mg/dL 03/11/2024 11:54 AM CDT LABORATORY POC Blood, Capillary BLOOD SPECIMEN / Unknown 03/11/2024 11:47 AM CDT 03/11/2024 11:54 AM CDT Narrative Authorizing Provider Result Lauren Tripathi MD LAB - BEAKER POCT Performing Organization Address City/[facility]/ZIP Co de Phone Number LABORATORY [facility] [address] Lab (1st floor, no room number) [address] * Glucose by meter (03/11/2024 7:36 AM CDT) GLUCOSE BY METER POCT 81 70 - 99 mg/dL 03/11/2024 7:45 AM CDT LABORATORY POC Blood, Capillary BLOOD SPECIMEN / Unknown 03/11/2024 7:36 AM CDT 03/11/2024 7:45 AM CDT Narrative Authorizing Provider Result Lauren Tripathi MD LAB - BEAKER POCT Performing Organization Address [facility]/ZIP Co de Phone Number LABORATORY [facility] [address] Lab (1st floor, no room number) [address] * (ABNORMAL) Renal panel (03/11/2024 7:03 [...] Earl MD LAB - BLOOD ORDERA BLES [facility] [address] Lab (1st floor, no room number) [place] [address], [facility] * INR (03/11/2024 7:03 AM CDT) INR 1.11 0.85 - 1.15 03/11/2024 7:31 AM CDT RH LABORATORY Blood STRUCTURE OF RIGHT UPPER LIMB / Unknown Venipuncture / Unknown 03/11/2024 7:03 AM CDT 03/11/2024 7:10 AM CDT Eileen Earl MD LAB - BLOOD ORDERA BLES [facility] [address] Lab (1st floor, no room number) [place] [address] * (ABNORMAL) CBC with platelets (03/11/2024 7:03 AM CDT) [facility] Signature WBC Count 9.9 4.0 - 11.0 [...] LAB - BLOOD ORDER NADIA RH LABORATORY [facility] [address] Lab (1st floor, no room number) [place] [address], [facility] * XR Chest Port 1 View (03/11/2024 3:25 AM CDT) Anatomical Region Laterality Modality Chest Digital Radiogra phy 03/11/2024 3:25 AM CDT Impressions 03/11/2024 3:30 AM CDT IMPRESSION: Normal heart size and pulmonary vascularity. Lungs clear. No pneumothorax. Minimal fluid or thickening along the right fissure. Narrative 03/11/2024 3:30 AM CDT EXAM: XR CHEST PORT 1 VIEW LOCATION: [facility] DATE: 03/11/2024 INDICATION: Shortness of breath COMPARISON: None. Procedure Note David Díaz MD - 03/11/2024 EXAM: XR CHEST PORT 1 VIEW LOCATION: [facility] DATE: 03/11/2024 INDICATION: Shortness of breath [...] AM CDT 03/11/2024 3:10 AM CDT Ron Tripathi MD LAB - BEAKER POCT LABORATORY [facility] [address] Lab (1st floor, no room number) [place] [address] * (ABNORMAL) Glucose by meter (03/11/2024 1:57 AM CDT) GLUCOSE BY METER POCT 120(H) 70 - 99 mg/dL 03/11/2024 2:04 AM CDT LABORATORY POC Blood, Capillary BLOOD SPECIMEN / Unknown 03/11/2024 1:57 AM CDT 03/11/2024 2:04 AM CDT Ron Tripathi MD LAB - BEAKER POCT LABORATORY [facility] [address] Lab (1st floor, no room number) [place] [address] * CONDITIONAL Transfuse red blood cells (unit) [...] LAB - BEAKER POCT RH LABORATORY POC [facility] [address] [facility] Lab (1st floor, no room number) [place] [phone] * Adult Type and Screen (03/10/2024 6:53 PM CDT) ABO/RH(D) O POS 03/10/2024 6:44 PM CDT RH BLOOD BANK Antibody Screen Negative Negative 03/10/2024 6:44 PM CDT RH BLOOD BANK SPECIMEN EXPIRATION DATE [id number] 03/10/2024 6:44 PM CDT RH BLOOD BANK Blood STRUCTURE OF RIGHT UPPER LIMB / Unknown Venipuncture / Unknown 03/10/2024 6:53 PM CDT 03/10/2024 6:57 PM CDT Antonino Cheek MD LAB - BLOOD BANK SHANNON T ORDER RH BLOOD BANK [address] [place] [address] * CONDITIONAL Prepare red blood cells (unit) (03/10/2024 6:37 PM CDT) Blood Component Type Red Blood Cells RH BLOOD BANK Product Code [id number] RH BLOO D BANK Unit Status Transfused RH BLOO D BANK Unit Number [id number] RH B LOOD BANK CROSSMATCH Compatible RH BLOOD BANK CODING SYSTEM [id number] RH BLO OD BANK ISSUE DATE AND TIME [id number] RH BLOOD BANK UNIT ABO/RH O+ RH BLOOD BANK UNIT TYPE ISBT 5100 RH BL OOD BANK 03/10/2024 6:37 PM CDT Eileen Earl MD BLOOD BANK PRODUCT ORDERABLES RH BLOOD BANK [address] [place] [address], [facility] * (ABNORMAL) Hemoglobin (03/10/2024 6:00 PM CDT) Hemoglobin 7.0(L) 13.3 - 17.7 g/dL 03/10/2024 6:09 PM CDT RH LABORATORY Blood STRUCTURE OF RIGHT UPPER LIMB / Unknown Venipuncture / Unknown 03/10/2024 6:00 PM CDT 03/10/2024 6:07 PM CDT Aashish Romero DO LAB - BLOOD ORDER NADIA Performing Organization Address [facility]/ZIP Co de Phone Number [facility] [address] [facility] Lab (1st floor, no room number) [place] [address], [facility] * (ABNORMAL) Glucose by meter (03/10/2024 4:49 PM CDT) GLUCOSE BY METER POCT 208(H) 70 - 99 mg/dL 03/10/2024 5:05 PM CDT RH LABORATORY POC Blood, Capillary BLOOD SPECIMEN / Unknown 03/10/2024 4:49 PM CDT 03/10/2024 5:05 PM CDT Ron Tripathi MD LAB - BEAKER POCT Performing Organization Address City/[facility]/ZIP Co de Phone Number LABORATORY [facility] [address] Lab (1st floor, no room number) [place] [address], [facility] * Glucose by meter (03/10/2024 2:35 PM CDT) GLUCOSE BY METER POCT 98 70 - 99 mg/dL 03/10/2024 2:43 PM CDT RH LABORATORY POC Blood, Capillary BLOOD SPECIMEN / Unknown 03/10/2024 2:35 PM CDT 03/10/2024 2:43 PM CDT Ron Tripathi MD LAB - BEAKER POCT LABORATORY [facility] [address] Lab (1st floor, no room number) [place] [address], [facility] * Glucose by meter (03/10/2024 1:28 PM CDT) GLUCOSE BY METER POCT 94 70 - 99 mg/dL 03/10/2024 1:37 PM CDT RH LABORATORY POC Blood, Capillary BLOOD SPECIMEN / Unknown 03/10/2024 1:28 PM CDT 03/10/2024 1:37 PM CDT Narrative Authorizing Provider Result Lauren DEAN - DAVID POCT LABORATORY [facility] [address] Lab (1st floor, no room number) [place] [address], [facility] * Glucose by meter (03/10/2024 12:35 PM CDT) GLUCOSE BY METER POCT 92 70 - 99 mg/dL 03/10/2024 12:50 PM CDT RH LABORATORY POC Blood, Capillary BLOOD SPECIMEN / Unknown 03/10/2024 12:35 PM CDT 03/10/2024 12:50 PM CDT Narrative Authorizing Provider Result Lauren DEAN - BEXIANG POCT LABORATORY [facility] [address] Lab (1st floor, no room number) [address] * (ABNORMAL) Glucose by meter (03/10/2024 11:28 AM CDT) GLUCOSE BY METER POCT 102(H) 70 - 99 mg/dL 03/10/2024 11:35 AM CDT RH LABORATORY POC Blood, Capillary BLOOD SPECIMEN / Unknown 03/10/2024 11:28 AM CDT 03/10/2024 11:35 AM CDT Narrative Authorizing Provider Result Lauren Tripathi MD LAB - BEAKER POCT LABORATORY [facility] [address] Lab (1st floor, no room number) [address] * (ABNORMAL) Glucose by meter (03/10/2024 10:35 AM CDT) GLUCOSE BY METER POCT 133(H) 70 - 99 mg/dL 03/10/2024 10:42 AM CDT LABORATORY POC Blood, Capillary BLOOD SPECIMEN / Unknown 03/10/2024 10:35 AM CDT 03/10/2024 10:42 AM CDT Narrative Authorizing Provider Result Lauren DEAN - BEAKER POCT Performing Organization Address City/[facility]/ZIP Co de Phone Number LABORATORY [facility] [address] Lab (1st floor, no room number) [address] * (ABNORMAL) Glucose by meter (03/10/2024 8:32 AM CDT) GLUCOSE BY METER POCT 105(H) 70 - 99 mg/dL 03/10/2024 8:45 AM CDT RH LABORATORY POC Blood, Capillary BLOOD SPECIMEN / Unknown 03/10/2024 8:32 AM CDT 03/10/2024 8:45 AM CDT Narrative Authorizing Provider Result Lauren DEAN - BEAKER POCT LABORATORY POC [facility] [address] Lab (1st floor, no room number) [place] [address] * (ABNORMAL) Hemoglobin (03/10/2024 7:46 AM CDT) Hemoglobin 7.0(L) 13.3 - 17.7 g/dL 03/10/2024 7:55 AM CDT LABORATORY Blood STRUCTURE OF RIGHT UPPER LIMB / Unknown Venipuncture / Unknown 03/10/2024 7:46 AM CDT 03/10/2024 7:50 AM CDT Ron Tripathi MD LAB - BLOOD ORDERABL ES Performing Organization Address [facility]/ZIP Co de Phone Number LABORATORY [facility] [address] Lab (1st floor, no room number) [place] [address] * (ABNORMAL) Renal panel (03/10/2024 7:46 [...] - 5.2 g/dL 03/10/2024 8:10 AM CDT LABORATORY Phosphorus 3.0 2.5 - 4.5 mg/dL 03/10/2024 8:10 AM CDT LABORATORY Blood STRUCTURE OF RIGHT UPPER LIMB / Unknown Venipuncture / Unknown 03/10/2024 7:46 AM CDT 03/10/2024 7:50 AM CDT Eileen Earl MD LAB - BLOOD ORDERA BLES Performing Organization Address City/[facility]/ZIP Co de Phone Number [facility] [address] Lab (1st floor, no room number) [place] [phone] [place] [address] * (ABNORMAL) INR (03/10/2024 7:46 AM CDT) INR 1.18(H) 0.85 - 1.15 03/10/2024 8:03 AM CDT LABORATORY Blood STRUCTURE OF RIGHT UPPER LIMB / Unknown Venipuncture / Unknown 03/10/2024 7:46 AM CDT 03/10/2024 7:50 AM CDT Eileen Earl MD LAB - BLOOD ORDERA BLES [facility] [address] [facility] (1st floor, no room number) [place] [phone] [place] [address] * (ABNORMAL) Glucose by meter (03/10/2024 3:38 AM CDT) GLUCOSE BY METER POCT 112(H) 70 - 99 mg/dL 03/10/2024 3:44 AM CDT RH LABORATORY POC Blood, Capillary BLOOD SPECIMEN / Unknown 03/10/2024 3:38 AM CDT 03/10/2024 3:44 AM CDT Narrative Authorizing Provider Result Lauren DEAN - BEAKER POCT Performing Organization Address [facility]/ZIP Co de Phone Number LABORATORY [facility] [address] Lab (1st floor, no room number) [place] [phone], [facility] * Glucose by meter (03/10/2024 12:05 AM CDT) GLUCOSE BY METER POCT 97 70 - 99 mg/dL 03/10/2024 12:11 AM CDT LABORATORY POC Blood, Capillary BLOOD SPECIMEN / Unknown 03/10/2024 12:05 AM CDT 03/10/2024 12:11 AM CDT Narrative Authorizing Provider Result Lauren DEAN - BEAKER POCT Performing Organization Address [facility]/ZIP Co de Phone Number LABORATORY [facility] [address] Lab (1st floor, no room number) [place] [address], [facility] * (ABNORMAL) Hemoglobin (03/09/2024 11:50 PM CDT) Hemoglobin 7.5(L) 13.3 - 17.7 g/dL 03/09/2024 11:57 PM CDT LABORATORY Blood STRUCTURE OF RIGHT HAND / Unknown Venipuncture / Unknown 03/09/2024 11:50 PM CDT 03/09/2024 11:53 PM CDT Narrative Authorizing Provider Result Lauren Tripathi MD LAB - BLOOD ORDERABL ES Performing Organization Address [facility]/ZIP Co de Phone Number [facility] [address] Lab (1st floor, no room number) [place] [address], [facility] * (ABNORMAL) Glucose by meter (03/09/2024 8:25 PM CDT) GLUCOSE BY METER POCT 159(H) 70 - 99 mg/dL 03/09/2024 8:32 PM CDT RH LABORATORY POC Blood, Capillary BLOOD SPECIMEN / Unknown 03/09/2024 8:25 PM CDT 03/09/2024 8:32 PM CDT Narrative Authorizing Provider Result Lauren Tripathi MD LAB - BEAKER POCT LABORATORY [facility] [address] Lab (1st floor, no room number) [place] [address] * (ABNORMAL) Hemoglobin (03/09/2024 7:13 PM CDT) Hemoglobin 7.6(L) 13.3 - 17.7 g/dL 03/09/2024 7:27 PM CDT LABORATORY Blood VENOUS LINE / Unknown Venipuncture / Unknown 03/09/2024 7:13 PM CDT 03/09/2024 7:25 PM CDT Narrative Authorizing Provider Result Lauren Tripathi MD LAB - BLOOD ORDERABL ES Performing Organization Address [facility]/ZIP Co de Phone Number [facility] [address] Lab (1st floor, no room number) [place] [address], [facility] * (ABNORMAL) Glucose by meter (03/09/2024 4:12 PM CDT) GLUCOSE BY METER POCT 147(H) 70 - 99 mg/dL 03/09/2024 4:19 PM CDT LABORATORY POC Blood, Capillary BLOOD SPECIMEN / Unknown 03/09/2024 4:12 PM CDT 03/09/2024 4:19 PM CDT Narrative Authorizing Provider Result Lauren Tripathi MD LAB - BEAKER POCT Performing Organization Address City/[facility]/ZIP Co de Phone Number LABORATORY [facility] [address] Lab (1st floor, no room number) [place] [address], [place] * (ABNORMAL) Hemoglobin (03/09/2024 2:16 PM CDT) Hemoglobin 7.6(L) 13.3 - 17.7 g/dL 03/09/2024 2:43 PM CDT LABORATORY Blood VASCULAR LINE / Unknown Venipuncture / Unknown 03/09/2024 2:16 PM CDT 03/09/2024 2:29 PM CDT Ron Tripathi MD LAB - BLOOD ORDERABL ES [facility] Care Lab [address] Lab (1st floor, no room number) [place] [address] * (ABNORMAL) Glucose by meter (03/09/2024 1:35 PM CDT) GLUCOSE BY METER POCT 150(H) 70 - 99 mg/dL 03/09/2024 1:42 PM CDT LABORATORY POC Blood, Capillary BLOOD SPECIMEN / Unknown 03/09/2024 1:35 PM CDT 03/09/2024 1:42 PM CDT Ron Tripathi MD LAB - BEAKER POCT LABORATORY [facility] [address] Lab (1st floor, no room number) [place] [address] * Morphology Tracking (03/09/2024 9:12 AM CDT) Blood VENOUS LINE / Unknown Venipuncture / Unknown 03/09/2024 9:12 AM CDT 03/09/2024 9:26 AM CDT Antonino Cheek MD LAB - BLOOD ORDERABL ES [facility] Care Lab [address] Lab (1st floor, no room number) [place] [address], [facility] * (ABNORMAL) Reticulocyte count (03/09/2024 9:12 AM CDT) % Reticulocyte 2.8(H) 0.5 - 2.0 % 03/09/2024 9:33 AM CDT RH LABORATORY Absolute Reticulocyte 0.072 0.025 - 0.095 10e6/uL 03/09/2024 9:33 AM CDT RH LABORATORY Blood VENOUS LINE / Unknown Venipuncture / Unknown 03/09/2024 9:12 AM CDT 03/09/2024 9:26 AM CDT Antonino Cheek MD LAB - BLOOD ORDERABL ES RH LABORATORY [facility] Lab [address] Lab (1st floor, no room number) [place] [address] * (ABNORMAL) CBC with platelets and [...] LAB - BLOOD ORDERABL ES RH LABORATORY [facility] Lab [address] Lab (1st floor, no room number) [place] [address], [facility] * Bld morphology pathology review (03/09/2024 9:12 AM CDT) Final Diagnosis Peripheral blood for morphology: -Moderate normochromic, normocytic anemia without evidence of red cell regeneration; no morphologic or laboratory features of hemolysis detected -Slight mature neutrophilia without morphologic abnormalities 03/13/2024 10:17 AM [facility] Comment Review of recent laboratory data notes normal LDH and haptoglobin. The history of GI bleeding and end-stage renal disease on hemodialysis are noted. Both conditions would contribute to the anemia present. 03/13/2024 10:17 AM [facility] Clinical Information Looking for signs of hemolysis 03/13/2024 10:17 AM [facility] LAB Peripheral Smear ERYTHROCYTES: The [...] than 50: Marked thrombocytopenia 03/13/2024 10:17 AM [facility] LAB Performing Labs The technical component of this testing was completed at [facility], [facility] and [facility] 03/13/2024 10:17 AM CDT [facility] PATH[facility] LAB Blood VENOUS LINE / [...] Antonino Cheek MD LAB - BEAKER AP [facility] PATHOLOGY LAB [facility] Pathology Lab [address] Floor, [address] [place] [address] * Haptoglobin (03/09/2024 9:12 AM CDT) Haptoglobin 127 30 - 200 mg/dL 03/10/2024 1:23 AM CDT [facility] LABORATORY Blood VENOUS LINE / Unknown Venipuncture / Unknown 03/09/2024 9:12 AM CDT 03/09/2024 9:26 AM CDT Antonino Cheek MD LAB - BLOOD ORDERABL ES [facility] LABORATORY [facility] [address], [address] [place] [address] * Bilirubin Direct and Total (03/09/2024 9:12 AM CDT) Bilirubin Direct 0.22 0.00 - 0.30 mg/dL 03/09/2024 9:59 AM CDT RH LABORATORY Bilirubin Total 0.5 <=1.2 mg/dL 03/09/2024 9:59 AM CDT RH LABORATORY Blood VENOUS LINE / Unknown Venipuncture / Unknown 03/09/2024 9:12 AM CDT 03/09/2024 9:26 AM CDT Antonino Cheek MD LAB - BLOOD ORDERABL ES Performing Organization Address [facility]/ZIP Co de Phone Number [facility] Lab [address] Lab (1st floor, no room number) [address] * Lactate Dehydrogenase (03/09/2024 9:12 AM CDT) Lactate Dehydrogenase 226 0 - 250 U/L 03/09/2024 9:59 AM CDT LABORATORY Blood VENOUS LINE / Unknown Venipuncture / Unknown 03/09/2024 9:12 AM CDT 03/09/2024 9:26 AM CDT Antonino Cheek MD LAB - BLOOD ORDERABL ES Performing Organization Address [facility]/ZIP Co de Phone Number [facility] Lab [address] Lab (1st floor, no room number) [address] * INR (03/09/2024 9:12 AM CDT) INR 1.13 0.85 - 1.15 03/09/2024 9:41 AM CDT LABORATORY Blood VENOUS LINE / Unknown Venipuncture / Unknown 03/09/2024 9:12 AM CDT 03/09/2024 9:26 AM CDT Eileen Earl MD LAB - BLOOD ORDERA BLES Performing Organization Address City/[facility]/ZIP Co de Phone Number [facility] Lab [address] Lab (1st floor, no room number) [address] [place] [address] * Glucose by meter (03/09/2024 7:55 AM CDT) GLUCOSE BY METER POCT 91 70 - 99 mg/dL 03/09/2024 8:04 AM CDT RH LABORATORY POC Comment:Dr/RN Notified Blood, Capillary BLOOD SPECIMEN / Unknown 03/09/2024 7:55 AM CDT 03/09/2024 8:04 AM CDT [facility] P[facility] Lab [address] Lab (1st floor, no room number) [place] [address], [facility] * (ABNORMAL) Renal panel (03/09/2024 5:49 AM CDT) Sodium 124(L) 135 - 145 mmol/L 03/09/2024 6:18 AM CDT RH LABORATORY Comment:Reference intervals for [...] MD LAB - BLOOD ORDERA BLES LABORATORY [facility] Lab [address] Lab (1st floor, no room number) [address] [place] [address] * (ABNORMAL) Hemoglobin (03/09/2024 5:49 AM CDT) Hemoglobin 7.5(L) 13.3 - 17.7 g/dL 03/09/2024 6:00 AM CDT RH LABORATORY Blood VENOUS LINE / Unknown Venipuncture / Unknown 03/09/2024 5:49 AM CDT 03/09/2024 5:57 AM CDT Ron Tripathi MD LAB - BLOOD ORDERABL ES Performing Organization Address [facility]/ZIP Co de Phone Number LABORATORY [facility] Care Lab [address] Lab (1st floor, no room number) [place] [phone] [place] [address] * (ABNORMAL) Glucose by meter (03/09/2024 4:31 AM CDT) GLUCOSE BY METER POCT 112(H) 70 - 99 mg/dL 03/09/2024 4:37 AM CDT RH LABORATORY POC Blood, Capillary BLOOD SPECIMEN / Unknown 03/09/2024 4:31 AM CDT 03/09/2024 4:37 AM CDT Ron Tripathi MD LAB - BEAKER POCT LABORATORY POC [facility] Lab [address] Lab (1st floor, no room number) [place] [address], [facility] * (ABNORMAL) Glucose by meter (03/09/2024 12:26 AM CDT) GLUCOSE BY METER POCT 124(H) 70 - 99 mg/dL 03/09/2024 12:32 AM CDT LABORATORY POC Blood, Capillary BLOOD SPECIMEN / Unknown 03/09/2024 12:26 AM CDT 03/09/2024 12:32 AM CDT Ron DEAN - BEAKER POCT LABORATORY [facility] Lab [address] Lab (1st floor, no room number) [address] [place] [address] * (ABNORMAL) Hemoglobin (03/08/2024 10:35 PM CDT) Hemoglobin 7.5(L) 13.3 - 17.7 g/dL 03/08/2024 10:48 PM CDT LABORATORY Blood BLOOD SPECIMEN / Unknown Venipuncture / Unknown 03/08/2024 10:35 PM CDT 03/08/2024 10:45 PM CDT Antonino Cheek MD LAB - BLOOD ORDERABL ES [facility] Lab [address] Lab (1st floor, no room number) [place] [phone] [place] [address] * (ABNORMAL) Glucose by meter (03/08/2024 10:09 PM CDT) GLUCOSE BY METER POCT 116(H) 70 - 99 mg/dL 03/08/2024 10:15 PM CDT LABORATORY POC Blood, Capillary BLOOD SPECIMEN / Unknown 03/08/2024 10:09 PM CDT 03/08/2024 10:15 PM CDT Ron DEAN - BEAKER POCT LABORATORY POC [facility] Acute Care Lab [address] Lab (1st floor, no room number) [place] [address] * (ABNORMAL) Glucose by meter (03/08/2024 8:11 PM CDT) GLUCOSE BY METER POCT 114(H) 70 - 99 mg/dL 03/08/2024 8:18 PM CDT RH LABORATORY POC Blood, Capillary BLOOD SPECIMEN / Unknown 03/08/2024 8:11 PM CDT 03/08/2024 8:18 PM CDT Narrative Authorizing Provider Result Lauren Tripathi MD LAB - BEAKER POCT Performing Organization Address City/[facility]/ZIP Co de Phone Number LABORATORY [facility] Acute Care Lab [address] Lab (1st floor, no room number) [place] [phone] * Glucose by meter (03/08/2024 5:59 PM CDT) GLUCOSE BY METER POCT 84 70 - 99 mg/dL 03/08/2024 6:05 PM CDT LABORATORY POC Blood, Capillary BLOOD SPECIMEN / Unknown 03/08/2024 5:59 PM CDT 03/08/2024 6:05 PM CDT Narrative Authorizing Provider Result Lauren DEAN - BEAKER POCT Performing Organization Address City/[facility]/ZIP Co de Phone Number LABORATORY [facility] Lab [address] Lab (1st floor, no room number) [place] [phone] [place] [address] * Glucose by meter (03/08/2024 5:28 PM CDT) GLUCOSE BY METER POCT 99 70 - 99 mg/dL 03/08/2024 5:35 PM CDT RH LABORATORY POC Blood, Capillary BLOOD SPECIMEN / Unknown 03/08/2024 5:28 PM CDT 03/08/2024 5:35 PM CDT Narrative Authorizing Provider Result Lauren DEAN - BEAKER POCT LABORATORY [facility] Lab [address] Lab (1st floor, no room number) [place] [phone] [place] [address] * Glucose by meter (03/08/2024 5:02 PM CDT) GLUCOSE BY METER POCT 79 70 - 99 mg/dL 03/08/2024 5:08 PM CDT RH LABORATORY POC Blood, Capillary BLOOD SPECIMEN / Unknown 03/08/2024 5:02 PM CDT 03/08/2024 5:08 PM CDT Ron DEAN - DAVID POCT Performing Organization Address [facility]/ZIP Co de Phone Number LABORATORY [facility] Lab [address] Lab (1st floor, no room number) [address] [place] [address] * (ABNORMAL) Glucose by meter (03/08/2024 4:36 PM CDT) GLUCOSE BY METER POCT 63(L) 70 - 99 mg/dL 03/08/2024 4:43 PM CDT LABORATORY POC Blood, Capillary BLOOD SPECIMEN / Unknown 03/08/2024 4:36 PM CDT 03/08/2024 4:43 PM CDT Ron DEAN - DAVID POCT Performing Organization Address [facility]/ZIP Co de Phone Number LABORATORY [facility] Lab [address] Lab (1st floor, no room number) [place] [phone] [place] [address] * (ABNORMAL) Glucose by meter (03/08/2024 3:59 PM CDT) GLUCOSE BY METER POCT 68(L) 70 - 99 mg/dL 03/08/2024 4:06 PM CDT LABORATORY POC Blood, Capillary BLOOD SPECIMEN / Unknown 03/08/2024 3:59 PM CDT 03/08/2024 4:06 PM CDT Ron Tripathi MD LAB - BEAKER POCT LABORATORY POC [facility] Lab [address] Lab (1st floor, no room number) [place] [phone] [place] [address] * (ABNORMAL) Hemoglobin (03/08/2024 2:42 PM CDT) Hemoglobin 8.1(L) 13.3 - 17.7 g/dL 03/08/2024 3:25 PM CDT RH LABORATORY Blood VASCULAR LINE / Unknown Venipuncture / Unknown 03/08/2024 2:42 PM CDT 03/08/2024 2:58 PM CDT Antonino Cheek MD LAB - BLOOD ORDERABL ES Performing Organization Address City/[facility]/ZIP Co de Phone Number LABORATORY [facility] Lab [address] Lab (1st floor, no room number) [place] [phone] [place] [address] * (ABNORMAL) Glucose by meter (03/08/2024 2:16 PM CDT) GLUCOSE BY METER POCT 104(H) 70 - 99 mg/dL 03/08/2024 2:23 PM CDT RH LABORATORY POC Comment:Dr/RN Notified Blood, Capillary BLOOD SPECIMEN / Unknown 03/08/2024 2:16 PM CDT 03/08/2024 2:23 PM CDT Ron Tripathi MD LAB - BEAKER POCT LABORATORY POC [facility] Lab [address] Lab (1st floor, no room number) [address] [place] [address] * (ABNORMAL) Glucose by meter (03/08/2024 1:56 PM CDT) GLUCOSE BY METER POCT 52(L) 70 - 99 mg/dL 03/08/2024 2:03 PM CDT RH LABORATORY POC Blood, Capillary BLOOD SPECIMEN / Unknown 03/08/2024 1:56 PM CDT 03/08/2024 2:03 PM CDT Ron DEAN - EVERAKER POCT Performing Organization Address [facility] Co de Phone Number LABORATORY [facility] Lab [address] Lab (1st floor, no room number) [place] [address] * (ABNORMAL) Glucose by meter (03/08/2024 1:36 PM CDT) GLUCOSE BY METER POCT 69(L) 70 - 99 mg/dL 03/08/2024 1:49 PM CDT LABORATORY POC Blood, venous BLOOD SPECIMEN / Unknown 03/08/2024 1:36 PM CDT 03/08/2024 1:49 PM CDT Ron DEAN - DAVID POCT Performing Organization Address [facility] de Phone Number LABORATORY [facility] Lab [address] Lab (1st floor, no room number) [place] [address] * Surgical Pathology Exam (03/08/2024 1:26 PM CDT) Case Report Surgical Pathology Report ? Case: [id number] ? Authorizing Provider: ??Eileen Earl MD ?Collected: ? 03/08/2024 01:26 PM ? Ordering Location: ? [facility] ?Received: ?03/08/2024 02:01 PM ? [facility] [place] ? Pathologist: ? Jae Cardona MD ? Specimen: ?Rectum, Rectum polyp ? 03/09/2024 10:13 AM [facility] LABORATORY Final Diagnosis Rectum, polypectomy: --Hyperplastic polyp. 03/09/2024 10:13 AM [facility] LABORATORY Clinical Information Procedure: Colonoscopy with polypectomy by cold biopsy forceps Pre-op Diagnosis: Anemia, unspecified type [D64.9] Post-op Diagnosis: D64.9 - Anemia, unspecified type [ICD-10-CM] 03/09/2024 10:13 AM [facility] LABORATORY Gross Description A(1). Rectum, Rectum polyp: The specimen is received in formalin, labeled with the patient's name, medical record number and other identifying information and designated ? rectum polyp? . It consists of 2 english soft tissue fragments ranging from 0.1-0.4 cm. Entirely submitted in one cassette. MARY Gates(ASCP)CM 03/08/2024 2:57 PM 03/09/2024 10:13 AM [facility] LABORATORY Microscopic Description Microscopic examination was performed. 03/09/2024 10:13 AM [facility] LABORATORY Performing Labs The technical component of this testing was completed at [facility]. Stain controls for all stains resulted within this report have been reviewed and show appropriate reactivity. 03/09/2024 10:13 AM CDT LABORATORY Case Images 03/09/2024 10:13 AM CDT LABORATORY Polyp RECTUM PART / Unknown 03/08/2024 1:26 PM CDT 03/08/2024 2:01 PM CDT Eileen [facility] - [facility] Lab [address] Lab (1st floor, no room number) [place] [address] * COLONOSCOPY (03/08/2024 1:04 PM CDT) [facility] Signature COLONOSCOPY [facility] Patient Name: Herminio Victor ? Procedure Date: [...] continuously. The ?Olympus Adult Colonoscope, Model # CF-LQ526P, ?Censitrac # [id number] was introduced through the ?anus and advanced [...] Note Initiated On: 03/08/2024 1:04 PM MRN: ?[id number] Procedure Date: ? 03/08/2024 1:04:50 PM Scope [...] - 99 mg/dL 03/08/2024 11:41 AM CDT RH LABORATORY POC Blood, Capillary BLOOD SPECIMEN / Unknown 03/08/2024 11:35 AM CDT 03/08/2024 11:41 AM CDT Ron DEAN - DAVID POCT Performing Organization Address City/[facility]/ZIP Co de Phone Number LABORATORY [facility] Lab [address] Lab (1st floor, no room number) [place] [address] * (ABNORMAL) Glucose by meter (03/08/2024 11:11 AM CDT) GLUCOSE BY METER POCT 65(L) 70 - 99 mg/dL 03/08/2024 11:17 AM CDT LABORATORY POC Blood, Capillary BLOOD SPECIMEN / Unknown 03/08/2024 11:11 AM CDT 03/08/2024 11:17 AM CDT Ron DEAN - DAVID POCT Performing Organization Address [facility] Co de Phone Number LABORATORY [facility] Lab [address] Lab (1st floor, no room number) [place] [address] * CONDITIONAL Transfuse red blood cells (unit) 1; No special requirements (03/08/2024 10:44 AM CDT) Eileen Earl MD BLOOD TRANSFUSION ORDERABLES * Glucose by meter (03/08/2024 8:50 AM CDT) GLUCOSE BY METER POCT 85 70 - 99 mg/dL 03/08/2024 8:56 AM CDT RH LABORATORY POC Blood, Capillary BLOOD SPECIMEN / Unknown 03/08/2024 8:50 AM CDT 03/08/2024 8:56 AM CDT Ron HERNANDEZ POCT RH LABORATORY POC [facility] Lab [address] [facility] Lab (1st floor, no room number) [place] [address] * CONDITIONAL Prepare red blood cells (unit) (03/08/2024 7:50 AM CDT) Blood Component Type Red Blood Cells RH BLOOD BANK Product Code [id number] RH BLOO D BANK Unit Status Transfused RH BLOO D BANK Unit Number [id number] RH B LOOD BANK CROSSMATCH Compatible RH BLOOD BANK CODING SYSTEM [id number] RH BLO OD BANK ISSUE DATE AND TIME [id number] RH BLOOD BANK UNIT ABO/RH O+ RH BLOOD BANK UNIT TYPE ISBT 5100 RH BL OOD BANK 03/08/2024 7:50 AM CDT Eileen Earl MD BLOOD BANK PRODUCT ORDERABLES Performing Organization Address [facility] Co de Phone Number RH BLOOD BANK [address] [place] [address] * (ABNORMAL) Renal panel (03/08/2024 6:25 AM CDT) Pathologist [facility] Sodium 128(L) 135 - 145 mmol/L 03/08/2024 [...] LAB - BLOOD ORDERA BLES LABORATORY [facility] Care Lab [address] Lab (1st floor, no room number) [address] * (ABNORMAL) INR (03/08/2024 6:25 AM CDT) INR 1.18(H) 0.85 - 1.15 03/08/2024 7:03 AM CDT LABORATORY Blood STRUCTURE OF RIGHT UPPER LIMB / Unknown Venipuncture / Unknown 03/08/2024 6:25 AM CDT 03/08/2024 6:39 AM CDT Eileen Earl MD LAB - BLOOD ORDERA BLES LABORATORY [facility] Lab [address] Lab (1st floor, no room number) [place] [phone] * (ABNORMAL) Hemoglobin (03/08/2024 6:25 AM CDT) Hemoglobin 6.7(LL) 13.3 - 17.7 g/dL 03/08/2024 7:01 AM CDT LABORATORY Blood STRUCTURE OF RIGHT UPPER LIMB / Unknown Venipuncture / Unknown 03/08/2024 6:25 AM CDT 03/08/2024 6:39 AM CDT Antonino Cheek MD LAB - BLOOD ORDERABL ES [facility] Lab [address] Lab (1st floor, no room number) [place] [address], [facility] * (ABNORMAL) Glucose by meter (03/08/2024 6:00 AM CDT) GLUCOSE BY METER POCT 111(H) 70 - 99 mg/dL 03/08/2024 6:07 AM CDT LABORATORY POC Blood, Capillary BLOOD SPECIMEN / Unknown 03/08/2024 6:00 AM CDT 03/08/2024 6:07 AM CDT Ron DEAN - BEXIANG POCT Performing Organization Address [facility]/ZIP Co de Phone Number LABORATORY [facility] Lab [address] Lab (1st floor, no room number) [place] [address], [facility] * Glucose by meter (03/08/2024 3:08 AM CDT) GLUCOSE BY METER POCT 90 70 - 99 mg/dL 03/08/2024 3:15 AM CDT LABORATORY POC Blood, Capillary BLOOD SPECIMEN / Unknown 03/08/2024 3:08 AM CDT 03/08/2024 3:15 AM CDT Ron DEAN - BEAKER POCT LABORATORY [facility] Lab [address] Lab (1st floor, no room number) [place] [address], [place] * Glucose by meter (03/08/2024 2:01 AM CDT) GLUCOSE BY METER POCT 76 70 - 99 mg/dL 03/08/2024 2:07 AM CDT RH LABORATORY POC Blood, Capillary BLOOD SPECIMEN / Unknown 03/08/2024 2:01 AM CDT 03/08/2024 2:07 AM CDT Ron Tripathi MD LAB - BEAKER POCT LABORATORY POC [facility] [address] Lab (1st floor, no room number) [address] * (ABNORMAL) Hemoglobin (03/08/2024 1:12 AM CDT) Hemoglobin 7.6(L) 13.3 - 17.7 g/dL 03/08/2024 1:33 AM CDT LABORATORY Blood STRUCTURE OF LEFT HAND / Unknown Venipuncture / Unknown 03/08/2024 1:12 AM CDT 03/08/2024 1:30 AM CDT Antonino Cheek MD LAB - BLOOD ORDERABL ES Performing Organization Address City/[facility]/ZIP Co de Phone Number LABORATORY [facility] [address] Lab (1st floor, no room number) [place] [phone] [place] [address] * US Upper Extremity Venous Duplex Right [...] US UPPER EXTREMITY VENOUS DUPLEX RIGHT LOCATION: [facility] DATE: 03/07/2024 INDICATION: Swelling, looking for [...] US UPPER EXTREMITY VENOUS DUPLEX RIGHT LOCATION: [facility] DATE: 03/07/2024 INDICATION: Swelling, looking for [...] to distal forearm. Antonino Cheek MD [facility] ORDERABLES * Glucose by meter (03/07/2024 9:31 PM CDT) [facility] GLUCOSE BY METER POCT 90 70 - 99 mg/dL 03/07/2024 9:38 PM CDT LABORATORY POC Blood, Capillary BLOOD SPECIMEN / Unknown 03/07/2024 9:31 PM CDT 03/07/2024 9:38 PM CDT Ron Tripathi MD LAB - [facility] POCT LABORATORY [facility] Lab [address] Lab (1st floor, no room number) [place] [address], [facility] * (ABNORMAL) Hemoglobin (03/07/2024 6:58 PM CDT) Hemoglobin 8.6(L) 13.3 - 17.7 g/dL 03/07/2024 8:44 PM CDT LABORATORY Blood STRUCTURE OF RIGHT HAND / Unknown Venipuncture / Unknown 03/07/2024 6:58 PM CDT 03/07/2024 7:06 PM CDT Antonino Cheek MD LAB - BLOOD ORDERABL ES [facility] Lab [address] Lab (1st floor, no room number) [place] [phone] [place] [address] * Glucose by meter (03/07/2024 6:56 PM CDT) GLUCOSE BY METER POCT 86 70 - 99 mg/dL 03/07/2024 7:03 PM CDT LABORATORY POC Blood, Capillary BLOOD SPECIMEN / Unknown 03/07/2024 6:56 PM CDT 03/07/2024 7:03 PM CDT Ron DEAN - BEAKER POCT LABORATORY [facility] Lab [address] Lab (1st floor, no room number) [place] [phone] * Glucose by meter (03/07/2024 5:03 PM CDT) GLUCOSE BY METER POCT 79 70 - 99 mg/dL 03/07/2024 5:10 PM CDT LABORATORY POC Blood, Capillary BLOOD SPECIMEN / Unknown 03/07/2024 5:03 PM CDT 03/07/2024 5:10 PM CDT Ron DEAN - [employer] POCT LABORATORY [facility] [address] Lab (1st floor, no room number) [place] [id number] * Single Lumen Midline Placement (03/07/2024 1:34 PM CDT) Patricio Peters RN - 03/07/2024 1:34 PM CDT Patricio Bocanegra RN ? 03/07/2024 ??1:41 PM [facility] Single Lumen Midline Placement Date/Time: 03/07/2024 1:34 [...] procedure a time out was called ?? [place] Protocol: the Joint Commission [place] Protocol was followed ?? Preparation: Patient was [...] size: 4 Fr Brand: Bard Lot number: [id number] Placement method: venipuncture, MST and ultrasound Number [...] 03/07/2024 11:37 AM CDT Ron DEAN - [employer] POCT LABORATORY [facility] [address] Lab (1st floor, no room number) [address] [place] [address] * Glucose by meter (03/07/2024 8:49 AM CDT) GLUCOSE BY METER POCT 77 70 - 99 mg/dL 03/07/2024 8:56 AM CDT LABORATORY POC Blood, Capillary BLOOD SPECIMEN / Unknown 03/07/2024 8:49 AM CDT 03/07/2024 8:56 AM CDT Ron Tripathi MD LAB - BEAKER POCT LABORATORY [facility] [address] Lab (1st floor, no room number) [address] * (ABNORMAL) Renal panel (03/07/2024 6:21 AM CDT) Sodium 119(LL) 135 - 145 mmol/L 03/07/2024 7:43 AM CDT LABORATORY Comment:Reference intervals for this [...] MD LAB - BLOOD ORDERA BLES LABORATORY [facility] [address] Lab (1st floor, no room number) [place], [address] * (ABNORMAL) INR (03/07/2024 6:21 AM CDT) INR 1.28(H) 0.85 - 1.15 03/07/2024 7:17 AM CDT RH LABORATORY Blood BLOOD SPECIMEN / Unknown Venipuncture / Unknown 03/07/2024 6:21 AM CDT 03/07/2024 7:06 AM CDT Eileen Earl MD LAB - BLOOD ORDERA BLES [facility] [address] Lab (1st floor, no room number) [place] [phone] [place] [address] * (ABNORMAL) Hemoglobin (03/07/2024 6:21 AM CDT) Hemoglobin 7.8(L) 13.3 - 17.7 g/dL 03/07/2024 7:11 AM CDT RH LABORATORY Blood BLOOD SPECIMEN / Unknown Venipuncture / Unknown 03/07/2024 6:21 AM CDT 03/07/2024 7:06 AM CDT Eileen Earl MD LAB - BLOOD ORDERA BLES Performing Organization Address City/[facility]/ZIP Co de Phone Number [facility] [address] Lab (1st floor, no room number) [place] [phone] * Glucose by meter (03/07/2024 6:19 AM CDT) GLUCOSE BY METER POCT 98 70 - 99 mg/dL 03/07/2024 6:26 AM CDT LABORATORY POC Blood, Capillary BLOOD SPECIMEN / Unknown 03/07/2024 6:19 AM CDT 03/07/2024 6:26 AM CDT Ron Tripathi MD LAB - BEAKER POCT LABORATORY POC [facility] [address] Lab (1st floor, no room number) [address] * Glucose by meter (03/07/2024 4:05 AM CDT) GLUCOSE BY METER POCT 78 70 - 99 mg/dL 03/07/2024 4:11 AM CDT RH LABORATORY POC Blood, Capillary BLOOD SPECIMEN / Unknown 03/07/2024 4:05 AM CDT 03/07/2024 4:11 AM CDT Ron DEAN - BEXIANG POCT LABORATORY [facility] [address] Lab (1st floor, no room number) [address] * (ABNORMAL) Hemoglobin (03/07/2024 1:04 AM CDT) Hemoglobin 7.6(L) 13.3 - 17.7 g/dL 03/07/2024 1:17 AM CDT RH LABORATORY Blood STRUCTURE OF LEFT HAND / Unknown Venipuncture / Unknown 03/07/2024 1:04 AM CDT 03/07/2024 1:14 AM CDT Eileen Earl MD LAB - BLOOD ORDERA BLES [facility] [address] Lab (1st floor, no room number) [place] [id number] * (ABNORMAL) Glucose by meter (03/07/2024 12:40 AM CDT) GLUCOSE BY METER POCT 116(H) 70 - 99 mg/dL 03/07/2024 12:48 AM CDT RH LABORATORY POC Blood, Capillary BLOOD SPECIMEN / Unknown 03/07/2024 12:40 AM CDT 03/07/2024 12:48 AM CDT Ron DEAN - DAVID POCT Performing Organization Address [facility]/ZIP Co de Phone Number LABORATORY [facility] [address] Lab (1st floor, no room number) [place] [phone] [place] [address] * (ABNORMAL) Glucose by meter (03/06/2024 9:36 PM CDT) GLUCOSE BY METER POCT 112(H) 70 - 99 mg/dL 03/06/2024 9:44 PM CDT RH LABORATORY POC Blood, Capillary BLOOD SPECIMEN / Unknown 03/06/2024 9:36 PM CDT 03/06/2024 9:44 PM CDT Ron HERNANDEZ POCT Performing Organization Address [facility]/ZIP Co de Phone Number LABORATORY [facility] [address] Lab (1st floor, no room number) [place] [phone] [place] [address] * Extra Serum Separator Tube (SST) (03/06/2024 7:55 PM CDT) Hold Specimen JIC 03/06/2024 9:03 PM CDT LABORATORY Blood BLOOD SPECIMEN / Unknown Venipuncture / Unknown 03/06/2024 7:55 PM CDT 03/06/2024 7:55 PM CDT Ron Tripathi MD LAB - BLOOD ORDERABL ES Performing Organization Address [facility]/ZIP Co de Phone Number [facility] [address] Lab (1st floor, no room number) [place] [phone] [place] [address] * (ABNORMAL) Glucose by meter (03/06/2024 6:37 PM CDT) GLUCOSE BY METER POCT 112(H) 70 - 99 mg/dL 03/06/2024 6:45 PM CDT RH LABORATORY POC Blood, Capillary BLOOD SPECIMEN / Unknown 03/06/2024 6:37 PM CDT 03/06/2024 6:45 PM CDT Ron Tripathi MD LAB - [facility] POCT RH LABORATORY [facility] [address] Lab (1st floor, no room number) [place] [address], [facility] * (ABNORMAL) CBC [...] Cheek MD LAB - BLOOD ORDERABL ES [facility] [address] Lab (1st floor, no room number) [place] [address] * (ABNORMAL) Glucose (03/06/2024 4:28 PM CDT) Glucose 196(H) 70 - 99 mg/dL 03/06/2024 4:54 PM CDT RH LABORATORY Blood STRUCTURE OF LEFT UPPER LIMB / Unknown Venipuncture / Unknown 03/06/2024 4:28 PM CDT 03/06/2024 4:32 PM CDT Antonino Cheek MD LAB - BLOOD ORDERABL ES [facility] [address] Lab (1st floor, no room number) [place] [address], [facility] * (ABNORMAL) Basic [...] MD LAB - BLOOD ORDERABL ES LABORATORY [facility] [address] [facility] Lab (1st floor, no room number) [place] [address], [facility] * (ABNORMAL) Hemoglobin (03/06/2024 4:28 PM CDT) Hemoglobin 7.4(L) 13.3 - 17.7 g/dL 03/06/2024 4:47 PM CDT LABORATORY Blood STRUCTURE OF LEFT UPPER LIMB / Unknown Venipuncture / Unknown 03/06/2024 4:28 PM CDT 03/06/2024 4:33 PM CDT Eileen Earl MD LAB - BLOOD ORDERA BLES [facility] [address] Lab (1st floor, no room number) [address] [place] [address] * (ABNORMAL) Glucose by meter (03/06/2024 4:26 PM CDT) GLUCOSE BY METER POCT 196(H) 70 - 99 mg/dL 03/06/2024 4:33 PM CDT LABORATORY POC Blood, Capillary BLOOD SPECIMEN / Unknown 03/06/2024 4:26 PM CDT 03/06/2024 4:33 PM CDT Ron DEAN - DAVID POCT Performing Organization Address City/[facility]/ZIP Co de Phone Number LABORATORY [facility] [address] Lab (1st floor, no room number) [place] [phone] [place] [address] * (ABNORMAL) Glucose by meter (03/06/2024 4:17 PM CDT) GLUCOSE BY METER POCT 38(LL) 70 - 99 mg/dL 03/06/2024 4:24 PM CDT LABORATORY POC Comment:Dr/RN Notified Blood, Capillary BLOOD SPECIMEN / Unknown 03/06/2024 4:17 PM CDT 03/06/2024 4:24 PM CDT Ron DEAN - BEXIANG POCT LABORATORY [facility] [address] Lab (1st floor, no room number) [place] [phone] * (ABNORMAL) Glucose by meter (03/06/2024 4:10 PM CDT) GLUCOSE BY METER POCT 47(LL) 70 - 99 mg/dL 03/19/2024 8:02 AM CDT LABORATORY POC Comment:Dr/RN Notified Blood, Capillary BLOOD SPECIMEN / Unknown 03/06/2024 4:10 PM CDT 03/19/2024 8:02 AM CDT Ron Tripathi MD LAB - BEAKER POCT LABORATORY [facility] [address] Lab (1st floor, no room number) [place] [address] * (ABNORMAL) Glucose by meter (03/06/2024 3:18 PM CDT) GLUCOSE BY METER POCT 64(L) 70 - 99 mg/dL 03/06/2024 3:26 PM CDT LABORATORY POC Blood, Capillary BLOOD SPECIMEN / Unknown 03/06/2024 3:18 PM CDT 03/06/2024 3:26 PM CDT Ron DEAN - BEAKER POCT LABORATORY [facility] [address] Lab (1st floor, no room number) [place] [phone] * (ABNORMAL) Glucose by meter (03/06/2024 3:03 PM CDT) GLUCOSE BY METER POCT 63(L) 70 - 99 mg/dL 03/06/2024 3:11 PM CDT LABORATORY POC Blood, Capillary BLOOD SPECIMEN / Unknown 03/06/2024 3:03 PM CDT 03/06/2024 3:11 PM CDT Ron Tripathi MD LAB - BEAKER POCT LABORATORY POC [facility] [address] Lab (1st floor, no room number) [place] [address] * (ABNORMAL) Hemoglobin - Pre-Op (03/06/2024 1:23 PM CDT) Hemoglobin 7.6(L) 13.3 - 17.7 g/dL 03/06/2024 1:39 PM CDT LABORATORY Blood STRUCTURE OF RIGHT UPPER LIMB / Unknown Venipuncture / Unknown 03/06/2024 1:23 PM CDT 03/06/2024 1:34 PM CDT Antonino Cheek MD LAB - BLOOD ORDERABL ES LABORATORY [facility] [address] Lab (1st floor, no room number) [place] [address] * UPPER GI ENDOSCOPY (03/06/2024 1:21 PM CDT) Upper GI Endoscopy [facility] Patient Name: Herminio Victor ? Procedure Date: [...] ?Olympus Gastroscope, Model # [id number]-H190, Censitrac # [id number] was introduced through the mouth, and ?advanced [...] Note Initiated On: 03/06/2024 1:21 PM MRN: ?[id number] Procedure Date: ? 03/06/2024 1:21:29 PM Total [...] LAB - DAVID POCT Performing Organization Address City/[facility]/ZIP Co de Phone Number LABORATORY POC [facility] [address] Lab (1st floor, no room number) [place] [address] * Transfuse red blood cells (unit) (03/06/2024 [...] LAB - BEAKER POCT RH LABORATORY POC [facility] [address] Lab (1st floor, no room number) [place] [address], [facility] * Adult Type and Screen (03/06/2024 8:53 AM CDT) ABO/RH(D) O POS 03/06/2024 7:57 AM CDT RH BLOOD BANK Antibody Screen Negative Negative 03/06/2024 7:57 AM CDT RH BLOOD BANK SPECIMEN EXPIRATION DATE [id number] 03/06/2024 7:57 AM CDT RH BLOOD BANK Blood STRUCTURE OF RIGHT HAND / Unknown Venipuncture / Unknown 03/06/2024 8:53 AM CDT 03/06/2024 9:00 AM CDT Antonino Cheek MD LAB - BLOOD BANK SHANNON T ORDER RH BLOOD BANK [address] [address] * Glucose by meter (03/06/2024 7:57 AM CDT) GLUCOSE BY METER POCT 87 70 - 99 mg/dL 03/06/2024 8:04 AM CDT RH LABORATORY POC Blood, Capillary BLOOD SPECIMEN / Unknown 03/06/2024 7:57 AM CDT 03/06/2024 8:04 AM CDT Ron Tripathi MD LAB - BEAKER POCT RH LABORATORY POC [facility] [address] Lab (1st floor, no room number) [place] [address] * Prepare red blood cells (unit) (03/06/2024 7:50 AM CDT) Blood Component Type Red Blood Cells RH BLOOD BANK Product Code [id number] RH BLOO D BANK Unit Status Transfused RH BLOO D BANK Unit Number [id number] RH B LOOD BANK CROSSMATCH Compatible RH BLOOD BANK CODING SYSTEM [id number] RH BLO OD BANK ISSUE DATE AND TIME [id number] RH BLOOD BANK UNIT ABO/RH O+ RH BLOOD BANK UNIT TYPE ISBT 5100 RH BL OOD BANK 03/06/2024 7:50 AM CDT Antonino Cheek MD BLOOD BANK PRODUCT O RDERABLES BLOOD BANK [place] [address], [facility] * (ABNORMAL) Renal panel (03/06/2024 6:54 [...] Performing Organization Address City/[facility]/ZIP Co de Phone Number [facility] [address] Lab (1st floor, no room number) [place] [address] * (ABNORMAL) Hemoglobin (03/06/2024 6:54 AM CDT) Hemoglobin 7.0(L) 13.3 - 17.7 g/dL 03/06/2024 7:04 AM CDT LABORATORY Blood STRUCTURE OF RIGHT HAND / Unknown Venipuncture / Unknown 03/06/2024 6:54 AM CDT 03/06/2024 7:00 AM CDT Antonino Cheek MD LAB - BLOOD ORDERABL ES Performing Organization Address [facility]/ZIP Co de Phone Number [facility] [address] Lab (1st floor, no room number) [place] [address], [facility] * (ABNORMAL) INR (03/06/2024 6:54 AM CDT) INR 1.51(H) 0.85 - 1.15 03/06/2024 7:19 AM CDT LABORATORY Blood STRUCTURE OF RIGHT HAND / Unknown Venipuncture / Unknown 03/06/2024 6:54 AM CDT 03/06/2024 7:00 AM CDT Eileen Earl MD LAB - BLOOD ORDERA BLES Performing Organization Address City/[facility]/ZIP Co de Phone Number [facility] [address] Lab (1st floor, no room number) [place] [address], [facility] * Glucose by meter (03/06/2024 4:05 AM CDT) GLUCOSE BY METER POCT 90 70 - 99 mg/dL 03/06/2024 4:21 AM CDT LABORATORY POC Blood, Capillary BLOOD SPECIMEN / Unknown 03/06/2024 4:05 AM CDT 03/06/2024 4:21 AM CDT Narrative Authorizing Provider Result Lauren Tripathi MD LAB - BEAKER POCT LABORATORY [facility] [address] Lab (1st floor, no room number) [place] [address], [place] * (ABNORMAL) Glucose by meter (03/06/2024 12:01 AM CDT) GLUCOSE BY METER POCT 101(H) 70 - 99 mg/dL 03/06/2024 12:13 AM CDT LABORATORY POC Blood, Capillary BLOOD SPECIMEN / Unknown 03/06/2024 12:01 AM CDT 03/06/2024 12:13 AM CDT Narrative Authorizing Provider Result Lauren DEAN - BEAKER POCT LABORATORY [facility] [address] Lab (1st floor, no room number) [place] [address], [facility] * Glucose by meter (03/05/2024 10:01 PM CDT) GLUCOSE BY METER POCT 87 70 - 99 mg/dL 03/05/2024 10:09 PM CDT LABORATORY POC Blood, Capillary BLOOD SPECIMEN / Unknown 03/05/2024 10:01 PM CDT 03/05/2024 10:09 PM CDT Narrative Authorizing Provider Result Lauren DEAN - BEAKER POCT LABORATORY [facility] [address] Lab (1st floor, no room number) [place] [address], [facility] * (ABNORMAL) Hemoglobin (03/05/2024 6:53 PM CDT) Hemoglobin 8.4(L) 13.3 - 17.7 g/dL 03/05/2024 7:07 PM CDT RH LABORATORY Blood STRUCTURE OF LEFT HAND / Unknown Venipuncture / Unknown 03/05/2024 6:53 PM CDT 03/05/2024 7:02 PM CDT Antonino Cheek MD LAB - BLOOD ORDERABL ES Performing Organization Address City/[facility]/ZIP Co de Phone Number [facility] [address] Lab (1st floor, no room number) [address] [place] [address] * Glucose by meter (03/05/2024 5:47 PM CDT) GLUCOSE BY METER POCT 96 70 - 99 mg/dL 03/05/2024 5:54 PM CDT RH LABORATORY POC Blood, Capillary BLOOD SPECIMEN / Unknown 03/05/2024 5:47 PM CDT 03/05/2024 5:54 PM CDT Ron Tripathi MD LAB - BEAKER POCT Performing Organization Address City/[facility]/ZIP Co de Phone Number LABORATORY [facility] [address] Lab (1st floor, no room number) [address] * CONDITIONAL Transfuse red blood cells (unit) 1; No special requirements (03/05/2024 4:07 PM CDT) Eileen Earl MD BLOOD TRANSFUSION ORDERABLES * CONDITIONAL Prepare red blood cells (unit) (03/05/2024 12:47 PM CDT) Blood Component Type Red Blood Cells RH BLOOD BANK Product Code [id number] RH BLOO D BANK Unit Status Transfused RH BLOO D BANK Unit Number [id number] RH B LOOD BANK CROSSMATCH Compatible RH BLOOD BANK CODING SYSTEM [id number] RH BLO OD BANK ISSUE DATE AND TIME [id number] RH BLOOD BANK UNIT ABO/RH O+ RH BLOOD BANK UNIT TYPE ISBT 5100 RH BL OOD BANK 03/05/2024 12:4 7 PM CDT Ron Tripathi MD BLOOD BANK PRODUCT O RDERABLES Performing Organization Address [facility] Co de Phone Number BLOOD BANK [address] [place] [address] * (ABNORMAL) Hemoglobin (03/05/2024 12:12 PM CDT) Hemoglobin 6.9(LL) 13.3 - 17.7 g/dL 03/05/2024 12:40 PM CDT LABORATORY Blood STRUCTURE OF LEFT HAND / Unknown Venipuncture / Unknown 03/05/2024 12:12 PM CDT 03/05/2024 12:21 PM CDT Antonino Cheek MD LAB - BLOOD ORDERABL ES Performing Organization Address [facility] Co de Phone Number LABORATORY [facility] [address] Lab (1st floor, no room number) [place] [phone], [facility] * (ABNORMAL) Glucose by meter (03/05/2024 12:06 PM CDT) GLUCOSE BY METER POCT 107(H) 70 - 99 mg/dL 03/05/2024 12:13 PM CDT LABORATORY POC Blood, Capillary BLOOD SPECIMEN / Unknown 03/05/2024 12:06 PM CDT 03/05/2024 12:13 PM CDT Ron Tripathi MD LAB - BEAKER POCT Performing Organization Address [facility]/ZIP Co de Phone Number LABORATORY POC [facility] [address] Lab (1st floor, no room number) [place] [phone], [facility] * Glucose by meter (03/05/2024 7:58 AM CDT) GLUCOSE BY METER POCT 83 70 - 99 mg/dL 03/05/2024 8:04 AM CDT LABORATORY POC Blood, Capillary BLOOD SPECIMEN / Unknown 03/05/2024 7:58 AM CDT 03/05/2024 8:04 AM CDT Ron DEAN - DAVID POCT LABORATORY [facility] [address] Lab (1st floor, no room number) [place] [address] * (ABNORMAL) Hemoglobin (03/05/2024 7:35 AM CDT) Hemoglobin 7.1(L) 13.3 - 17.7 g/dL 03/05/2024 8:01 AM CDT LABORATORY Blood STRUCTURE OF LEFT HAND / Unknown Venipuncture / Unknown 03/05/2024 7:35 AM CDT 03/05/2024 7:57 AM CDT Aashish Romero DO LAB - BLOOD ORDER NADIA Performing Organization Address City/[facility]/ZIP Co de Phone Number [facility] [address] Lab (1st floor, no room number) [place] [phone] [place] [address] * (ABNORMAL) INR (03/05/2024 7:35 AM CDT) INR 2.20(H) 0.85 - 1.15 03/05/2024 8:13 AM CDT LABORATORY Blood STRUCTURE OF LEFT HAND / Unknown Venipuncture / Unknown 03/05/2024 7:35 AM CDT 03/05/2024 7:57 AM CDT Eileen Earl MD LAB - BLOOD ORDERA BLES [facility] [address] Lab (1st floor, no room number) [place] [phone] * (ABNORMAL) Comprehensive metabolic panel (03/05/2024 7:35 [...] LAB - BLOOD ORDER NADIA RH LABORATORY [facility] [address] [facility], no room number) [place] [address] * (ABNORMAL) CBC with platelets (03/05/2024 7:35 [...] Romero DO LAB - BLOOD ORDER NADIA [facility] [address] Lab (1st floor, no room number) [place] [address], [facility] * (ABNORMAL) Glucose by meter (03/05/2024 4:09 AM CDT) GLUCOSE BY METER POCT 107(H) 70 - 99 mg/dL 03/05/2024 4:16 AM CDT LABORATORY POC Blood, Capillary BLOOD SPECIMEN / Unknown 03/05/2024 4:09 AM CDT 03/05/2024 4:16 AM CDT Ron DEAN - BEXIANG POCT Performing Organization Address City/[facility]/ZIP Co de Phone Number LABORATORY [facility] [address] Lab (1st floor, no room number) [place] [address], [facility] * (ABNORMAL) Glucose by meter (03/05/2024 3:22 AM CDT) GLUCOSE BY METER POCT 115(H) 70 - 99 mg/dL 03/05/2024 3:30 AM CDT LABORATORY POC Blood, Capillary BLOOD SPECIMEN / Unknown 03/05/2024 3:22 AM CDT 03/05/2024 3:30 AM CDT Ron DEAN - BEAKER POCT LABORATORY [facility] [address] Lab (1st floor, no room number) [place] [address] * (ABNORMAL) Glucose by meter (03/05/2024 12:07 AM CDT) GLUCOSE BY METER POCT 118(H) 70 - 99 mg/dL 03/05/2024 12:14 AM CDT RH LABORATORY POC Blood, Capillary BLOOD SPECIMEN / Unknown 03/05/2024 12:07 AM CDT 03/05/2024 12:14 AM CDT Ron Tripathi MD LAB - BEAKER POCT LABORATORY [facility] [address] Lab (1st floor, no room number) [address] [place] [address] * (ABNORMAL) Glucose by meter (03/04/2024 9:37 PM CDT) GLUCOSE BY METER POCT 132(H) 70 - 99 mg/dL 03/04/2024 9:45 PM CDT LABORATORY POC Blood, Capillary BLOOD SPECIMEN / Unknown 03/04/2024 9:37 PM CDT 03/04/2024 9:45 PM CDT Ron DEAN - BEAKER POCT LABORATORY [facility] [address] Lab (1st floor, no room number) [address] [place] [address] * (ABNORMAL) Glucose by meter (03/04/2024 8:34 PM CDT) GLUCOSE BY METER POCT 122(H) 70 - 99 mg/dL 03/04/2024 8:41 PM CDT LABORATORY POC Blood, Capillary BLOOD SPECIMEN / Unknown 03/04/2024 8:34 PM CDT 03/04/2024 8:41 PM CDT Ron DEAN - BEAKER POCT LABORATORY [facility] [address] Lab (1st floor, no room number) [address] * (ABNORMAL) Potassium (03/04/2024 6:29 PM CDT) Potassium 5.6(H) 3.4 - 5.3 mmol/L 03/04/2024 7:00 PM CDT RH LABORATORY Blood STRUCTURE OF LEFT HAND / Unknown Venipuncture / Unknown 03/04/2024 6:29 PM CDT 03/04/2024 6:37 PM CDT Job Her MD LAB - BLOOD ORDERABL ES [facility] [address] Lab (1st floor, no room number) [address] * (ABNORMAL) Hemoglobin (03/04/2024 6:29 PM CDT) Hemoglobin 7.7(L) 13.3 - 17.7 g/dL 03/04/2024 6:41 PM CDT LABORATORY Blood STRUCTURE OF LEFT HAND / Unknown Venipuncture / Unknown 03/04/2024 6:29 PM CDT 03/04/2024 6:37 PM CDT Aashish Romero DO LAB - BLOOD ORDER NADIA [facility] [address] Lab (1st floor, no room number) [address] * Glucose by meter (03/04/2024 5:44 PM CDT) GLUCOSE BY METER POCT 93 70 - 99 mg/dL 03/04/2024 5:51 PM CDT LABORATORY POC Blood, Capillary BLOOD SPECIMEN / Unknown 03/04/2024 5:44 PM CDT 03/04/2024 5:51 PM CDT Ron Tripathi MD LAB - BEAKER POCT Performing Organization Address City/[facility]/ZIP Co de Phone Number LABORATORY [facility] [address] Lab (1st floor, no room number) [place] [phone] [place] [address] * Glucose by meter (03/04/2024 3:12 PM CDT) GLUCOSE BY METER POCT 96 70 - 99 mg/dL 03/04/2024 3:19 PM CDT RH LABORATORY POC Blood, Capillary BLOOD SPECIMEN / Unknown 03/04/2024 3:12 PM CDT 03/04/2024 3:19 PM CDT Ron DEAN - DAVID POCT Performing Organization Address [facility]/ZIP Co de Phone Number LABORATORY [facility] [address] Lab (1st floor, no room number) [place] [phone] [place] [address] * Glucose by meter (03/04/2024 1:46 PM CDT) GLUCOSE BY METER POCT 86 70 - 99 mg/dL 03/04/2024 1:53 PM CDT LABORATORY POC Blood, Capillary BLOOD SPECIMEN / Unknown 03/04/2024 1:46 PM CDT 03/04/2024 1:53 PM CDT Ron DEAN - DAVID POCT Performing Organization Address City/[facility]/ZIP Co de Phone Number LABORATORY [facility] [address] Lab (1st floor, no room number) [place] [phone] [place] [address] * (ABNORMAL) Glucose by meter (03/04/2024 1:09 PM CDT) GLUCOSE BY METER POCT 67(L) 70 - 99 mg/dL 03/04/2024 1:15 PM CDT LABORATORY POC Blood, Capillary BLOOD SPECIMEN / Unknown 03/04/2024 1:09 PM CDT 03/04/2024 1:15 PM CDT Ron Tripathi MD LAB - BEAKER POCT LABORATORY [facility] [address] Lab (1st floor, no room number) [place] [address], [place] * (ABNORMAL) Glucose by meter (03/04/2024 11:59 AM CDT) GLUCOSE BY METER POCT 69(L) 70 - 99 mg/dL 03/04/2024 12:06 PM CDT RH LABORATORY POC Blood, Capillary BLOOD SPECIMEN / Unknown 03/04/2024 11:59 AM CDT 03/04/2024 12:06 PM CDT Ron Tripathi MD LAB - BEAKER POCT Performing Organization Address City/[facility]/ZIP Co de Phone Number LABORATORY [facility] [address] Lab (1st floor, no room number) [place] [phone] * Glucose by meter (03/04/2024 10:47 AM CDT) GLUCOSE BY METER POCT 74 70 - 99 mg/dL 03/04/2024 11:06 AM CDT LABORATORY POC Blood, Capillary BLOOD SPECIMEN / Unknown 03/04/2024 10:47 AM CDT 03/04/2024 11:06 AM CDT Ron DEAN - BEAKER POCT [facility] [facility] [address] Lab (1st floor, no room number) [place] [phone], [facility] * Glucose by meter (03/04/2024 8:58 AM CDT) GLUCOSE BY METER POCT 81 70 - 99 mg/dL 03/04/2024 9:06 AM CDT RH LABORATORY POC Blood, Capillary BLOOD SPECIMEN / Unknown 03/04/2024 8:58 AM CDT 03/04/2024 9:06 AM CDT Ron Tripathi MD LAB - BEAKER POCT LABORATORY [facility] [address] Lab (1st floor, no room number) [place] [id number] * Glucose by meter (03/04/2024 7:03 AM CDT) GLUCOSE BY METER POCT 76 70 - 99 mg/dL 03/04/2024 7:10 AM CDT LABORATORY POC Blood, Capillary BLOOD SPECIMEN / Unknown 03/04/2024 7:03 AM CDT 03/04/2024 7:10 AM CDT Ron Tripathi MD LAB - BEAKER POCT Performing Organization Address [facility]/ZIP Co de Phone Number LABORATORY [facility] [address] Lab (1st floor, no room number) [place] [phone] [place] [address] * (ABNORMAL) Comprehensive metabolic panel (03/04/2024 6:45 [...] DO LAB - BLOOD ORDER NADIA LABORATORY [facility] [address] Lab (1st floor, no room number) [place] [address] * (ABNORMAL) CBC with platelets (03/04/2024 [...] LAB - BLOOD ORDER NADIA RH LABORATORY [facility] [address] Lab (1st floor, no room number) [place] [address] * (ABNORMAL) Hemoglobin (03/04/2024 6:45 AM CDT) Hemoglobin 7.1(L) 13.3 - 17.7 g/dL 03/04/2024 6:57 AM CDT RH LABORATORY Blood STRUCTURE OF RIGHT UPPER LIMB / Unknown Venipuncture / Unknown 03/04/2024 6:45 AM CDT 03/04/2024 6:54 AM CDT Ron Tripathi MD LAB - BLOOD ORDERABL ES LABORATORY [facility] [address] Lab (1st floor, no room number) [place] [address], [facility] * Cortisol (03/04/2024 6:45 AM [...] DO LAB - BLOOD ORDER NADIA LABORATORY [facility] [address] [facility], [address] [place] [address] * Glucose by meter (03/04/2024 5:08 AM CDT) GLUCOSE BY METER POCT 93 70 - 99 mg/dL 03/04/2024 5:15 AM CDT LABORATORY POC Blood, Capillary BLOOD SPECIMEN / Unknown 03/04/2024 5:08 AM CDT 03/04/2024 5:15 AM CDT Ron Tripathi MD LAB - BEAKER POCT LABORATORY POC [facility] [address] Lab (1st floor, no room number) [place] [address], [facility] * (ABNORMAL) Glucose by meter (03/04/2024 3:28 AM CDT) GLUCOSE BY METER POCT 116(H) 70 - 99 mg/dL 03/04/2024 3:36 AM CDT RH LABORATORY POC Blood, Capillary BLOOD SPECIMEN / Unknown 03/04/2024 3:28 AM CDT 03/04/2024 3:36 AM CDT Ron DEAN - BEAKER POCT LABORATORY [facility] [address] Lab (1st floor, no room number) [place] [address], [facility] * Glucose by meter (03/04/2024 2:12 AM CDT) GLUCOSE BY METER POCT 77 70 - 99 mg/dL 03/04/2024 2:20 AM CDT RH LABORATORY POC Comment:Dr/RN Notified Blood, Capillary BLOOD SPECIMEN / Unknown 03/04/2024 2:12 AM CDT 03/04/2024 2:20 AM CDT Narrative Authorizing Provider Result Lauren DEAN - DAVID POCT Performing Organization Address City/[facility]/ZIP Co de Phone Number LABORATORY [facility] [address] Lab (1st floor, no room number) [place] [address], [facility] * Glucose by meter (03/04/2024 12:25 AM CDT) GLUCOSE BY METER POCT 96 70 - 99 mg/dL 03/04/2024 12:32 AM CDT LABORATORY POC Blood, Capillary BLOOD SPECIMEN / Unknown 03/04/2024 12:25 AM CDT 03/04/2024 12:32 AM CDT Narrative Authorizing Provider Result Lauren DEAN - BEAKER POCT LABORATORY [facility] [address] Lab (1st floor, no room number) [address] * (ABNORMAL) Hemoglobin (03/03/2024 9:40 PM CDT) Hemoglobin 7.2(L) 13.3 - 17.7 g/dL 03/03/2024 9:53 PM CDT LABORATORY Blood STRUCTURE OF RIGHT UPPER LIMB / Unknown Venipuncture / Unknown 03/03/2024 9:40 PM CDT 03/03/2024 9:50 PM CDT Ron Tripathi MD LAB - BLOOD ORDERABL ES LABORATORY [facility] [address] [facility], no room number[facility] [address] * (ABNORMAL) Glucose by meter (03/03/2024 8:13 PM CDT) GLUCOSE BY METER POCT 144(H) 70 - 99 mg/dL 03/03/2024 8:20 PM CDT LABORATORY POC Blood, Capillary BLOOD SPECIMEN / Unknown 03/03/2024 8:13 PM CDT 03/03/2024 8:20 PM CDT Narrative Authorizing Provider Result Lauren Tripathi MD LAB - BEAKER POCT LABORATORY POC [facility] [address] Lab (1st floor, no room number) [address] * (ABNORMAL) Glucose by meter (03/03/2024 6:23 PM CDT) GLUCOSE BY METER POCT 110(H) 70 - 99 mg/dL 03/03/2024 6:29 PM CDT LABORATORY POC Blood, Capillary BLOOD SPECIMEN / Unknown 03/03/2024 6:23 PM CDT 03/03/2024 6:29 PM CDT Narrative Authorizing Provider Result Lauren Tripathi MD LAB - BEAKER POCT LABORATORY [facility] [address] Lab (1st floor, no room number) [place] [address] * (ABNORMAL) Glucose by meter (03/03/2024 5:39 PM CDT) GLUCOSE BY METER POCT 57(L) 70 - 99 mg/dL 03/03/2024 5:45 PM CDT RH LABORATORY POC Blood, Capillary BLOOD SPECIMEN / Unknown 03/03/2024 5:39 PM CDT 03/03/2024 5:45 PM CDT Ron DEAN - BEAKER POCT LABORATORY [facility] [address] Lab (1st floor, no room number) [place] [address] * (ABNORMAL) Glucose by meter (03/03/2024 5:11 PM CDT) GLUCOSE BY METER POCT 64(L) 70 - 99 mg/dL 03/03/2024 5:18 PM CDT LABORATORY POC Blood, Capillary BLOOD SPECIMEN / Unknown 03/03/2024 5:11 PM CDT 03/03/2024 5:18 PM CDT Ron DEAN - DAVID POCT LABORATORY [facility] [address] Lab (1st floor, no room number) [place] [address] * (ABNORMAL) Glucose by meter (03/03/2024 4:39 PM CDT) GLUCOSE BY METER POCT 55(L) 70 - 99 mg/dL 03/03/2024 4:46 PM CDT LABORATORY POC Blood, Capillary BLOOD SPECIMEN / Unknown 03/03/2024 4:39 PM CDT 03/03/2024 4:46 PM CDT Narrative Authorizing Provider Result Lauren Tripathi MD LAB - BEAKER POCT LABORATORY [facility] [address] Lab (1st floor, no room number) [address] * (ABNORMAL) Glucose by meter (03/03/2024 4:17 PM CDT) GLUCOSE BY METER POCT 65(L) 70 - 99 mg/dL 03/03/2024 4:25 PM CDT RH LABORATORY POC Blood, Capillary BLOOD SPECIMEN / Unknown 03/03/2024 4:17 PM CDT 03/03/2024 4:25 PM CDT Ron DEAN - BEAKER POCT Performing Organization Address City/[facility]/ZIP Co de Phone Number LABORATORY [facility] [address] Lab (1st floor, no room number) [address] * (ABNORMAL) Glucose by meter (03/03/2024 2:11 PM CDT) GLUCOSE BY METER POCT 65(L) 70 - 99 mg/dL 03/03/2024 2:17 PM CDT RH LABORATORY POC Blood, Capillary BLOOD SPECIMEN / Unknown 03/03/2024 2:11 PM CDT 03/03/2024 2:17 PM CDT Narrative Authorizing Provider Result Lauren DEAN - BEAKER POCT LABORATORY [facility] [address] Lab (1st floor, no room number) [address] * (ABNORMAL) Hemoglobin (03/03/2024 2:07 PM CDT) Hemoglobin 7.6(L) 13.3 - 17.7 g/dL 03/03/2024 2:13 PM CDT RH LABORATORY Blood STRUCTURE OF RIGHT UPPER LIMB / Unknown Venipuncture / Unknown 03/03/2024 2:07 PM CDT 03/03/2024 2:10 PM CDT Narrative Authorizing Provider Result Lauren Tripathi MD LAB - BLOOD ORDERABL ES Performing Organization Address [facility]/ZIP Co de Phone Number [facility] [address] Lab (1st floor, no room number) [place] [address], [facility] * (ABNORMAL) Glucose by meter (03/03/2024 11:59 AM CDT) GLUCOSE BY METER POCT 152(H) 70 - 99 mg/dL 03/03/2024 2:15 PM CDT RH LABORATORY POC Blood, Capillary BLOOD SPECIMEN / Unknown 03/03/2024 11:59 AM CDT 03/03/2024 2:15 PM CDT Narrative Authorizing Provider Result Lauren DEAN - BEAKER POCT Performing Organization Address [facility]/ZIP Co de Phone Number [facility] [address] Lab (1st floor, no room number) [place] [address], [facility] * Glucose by meter (03/03/2024 11:36 AM CDT) GLUCOSE BY METER POCT 80 70 - 99 mg/dL 03/03/2024 2:14 PM CDT LABORATORY POC Blood, Capillary BLOOD SPECIMEN / Unknown 03/03/2024 11:36 AM CDT 03/03/2024 2:14 PM CDT Narrative Authorizing Provider Result Lauren DEAN - BEAKER POCT Performing Organization Address City/[facility]/ZIP Co de Phone Number [facility] [address] Lab (1st floor, no room number) [place] [phone], [facility] * (ABNORMAL) Glucose by meter (03/03/2024 11:14 AM CDT) GLUCOSE BY METER POCT 39(LL) 70 - 99 mg/dL 03/03/2024 2:14 PM CDT LABORATORY POC Comment:Dr/RN Notified Blood, Capillary BLOOD SPECIMEN / Unknown 03/03/2024 11:14 AM CDT 03/03/2024 2:14 PM CDT Ron Tripathi MD LAB - BEAKER POCT LABORATORY [facility] [address] Lab (1st floor, no room number) [address] * Glucose by meter (03/03/2024 10:51 AM CDT) GLUCOSE BY METER POCT 79 70 - 99 mg/dL 03/03/2024 10:58 AM CDT LABORATORY POC Blood, Capillary BLOOD SPECIMEN / Unknown 03/03/2024 10:51 AM CDT 03/03/2024 10:58 AM CDT Ron Tripathi MD LAB - BEAKER POCT Performing Organization Address City/[facility]/ZIP Co de Phone Number LABORATORY [facility] [address] Lab (1st floor, no room number) [address] [place] [address] * (ABNORMAL) Glucose by meter (03/03/2024 10:30 AM CDT) GLUCOSE BY METER POCT 56(L) 70 - 99 mg/dL 03/03/2024 10:37 AM CDT LABORATORY POC Blood, Capillary BLOOD SPECIMEN / Unknown 03/03/2024 10:30 AM CDT 03/03/2024 10:37 AM CDT Ron Tripathi MD LAB - BEAKER POCT LABORATORY [facility] [address] Lab (1st floor, no room number) [address] [place] [address] * (ABNORMAL) Hemoglobin (03/03/2024 6:10 AM CDT) Pathologist [facility] Hemoglobin 7.1(L) 13.3 - 17.7 g/dL 03/03/2024 6:27 AM CDT RH LABORATORY Blood STRUCTURE OF RIGHT UPPER LIMB / Unknown Venipuncture / Unknown 03/03/2024 6:10 AM CDT 03/03/2024 6:25 AM CDT Ron Tripathi MD LAB - BLOOD ORDERABL ES Performing Organization Address City/[facility]/ZIP Co de Phone Number LABORATORY [facility] [address] Lab (1st floor, no room number) [place] [address] * (ABNORMAL) INR (03/03/2024 6:10 AM CDT) Pathologist [facility] INR 2.23(H) 0.85 - 1.15 03/03/2024 6:46 AM CDT RH LABORATORY Blood STRUCTURE OF RIGHT UPPER LIMB / Unknown Venipuncture / Unknown 03/03/2024 6:10 AM CDT 03/03/2024 6:25 AM CDT Ron Tripathi MD LAB - BLOOD ORDERABL ES Performing Organization Address City/[facility]/ZIP Co de Phone Number LABORATORY [facility] [address] Lab (1st floor, no room number) [place] [address], [place] * (ABNORMAL) CBC with platelets (03/03/2024 6:10 AM CDT) Pathologist [facility] WBC Count 5.5 4.0 - 11.0 10e3/uL [...] MD LAB - BLOOD ORDERABL ES LABORATORY [facility] [address] [facility] Lab (1st floor, no room number) [place] [address] * (ABNORMAL) Basic metabolic panel (03/03/2024 6:10 [...] Tripathi MD LAB - BLOOD ORDERABL ES [facility] [address] Lab (1st floor, no room number) [place] [address] * (ABNORMAL) Glucose by meter (03/03/2024 5:27 AM CDT) GLUCOSE BY METER POCT 135(H) 70 - 99 mg/dL 03/03/2024 5:34 AM CDT LABORATORY POC Blood, Capillary BLOOD SPECIMEN / Unknown 03/03/2024 5:27 AM CDT 03/03/2024 5:34 AM CDT Narrative Authorizing Provider Result Lauren Tripathi MD LAB - BEAKER POCT LABORATORY [facility] [address] Lab (1st floor, no room number) [place] [address] * Glucose by meter (03/03/2024 4:16 AM CDT) GLUCOSE BY METER POCT 71 70 - 99 mg/dL 03/03/2024 4:23 AM CDT RH LABORATORY POC Blood, Capillary BLOOD SPECIMEN / Unknown 03/03/2024 4:16 AM CDT 03/03/2024 4:23 AM CDT Ron Tripathi MD LAB - BEAKER POCT LABORATORY [facility] [address] Lab (1st floor, no room number) [place] [phone] [place] [address] * Glucose by meter (03/03/2024 2:40 AM CDT) GLUCOSE BY METER POCT 91 70 - 99 mg/dL 03/03/2024 2:46 AM CDT LABORATORY POC Blood, Capillary BLOOD SPECIMEN / Unknown 03/03/2024 2:40 AM CDT 03/03/2024 2:46 AM CDT Ron Tripathi MD LAB - BEAKER POCT Performing Organization Address [facility]/ZIP Co de Phone Number LABORATORY [facility] [address] Lab (1st floor, no room number) [place] [phone] [place] [address] * CONDITIONAL Transfuse red blood cells (unit) [...] CDT Ron DEAN - BEXIANG POCT LABORATORY [facility] [address] Lab (1st floor, no room number) [place] [phone] [place] [address] * Glucose by meter (03/03/2024 12:34 AM CDT) GLUCOSE BY METER POCT 74 70 - 99 mg/dL 03/03/2024 12:40 AM CDT LABORATORY POC Blood, Capillary BLOOD SPECIMEN / Unknown 03/03/2024 12:34 AM CDT 03/03/2024 12:40 AM CDT Narrative Authorizing Provider Result Lauren Tripathi MD LAB - BEAKER POCT Performing Organization Address City/[facility]/ZIP Co de Phone Number LABORATORY [facility] [address] Lab (1st floor, no room number) [place] [phone] [place] [address] * Transfuse red blood cells (unit) (03/02/2024 [...] ORDERABL ES Performing Organization Address [facility]/ZIP Co de Phone Number [facility] [address] Lab (1st floor, no room number) [place] [phone] [place] [address] * (ABNORMAL) Glucose by meter (03/02/2024 9:34 PM CDT) GLUCOSE BY METER POCT 126(H) 70 - 99 mg/dL 03/02/2024 10:03 PM CDT RH LABORATORY POC Blood, Capillary BLOOD SPECIMEN / Unknown 03/02/2024 9:34 PM CDT 03/02/2024 10:03 PM CDT Ron DEAN - BEAKER POCT Performing Organization Address City/[facility]/ZIP Co de Phone Number LABORATORY [facility] [address] Lab (1st floor, no room number) [place] [phone] [place] [address] * (ABNORMAL) Glucose by meter (03/02/2024 9:01 PM CDT) GLUCOSE BY METER POCT 136(H) 70 - 99 mg/dL 03/02/2024 9:11 PM CDT RH LABORATORY POC Blood, Capillary BLOOD SPECIMEN / Unknown 03/02/2024 9:01 PM CDT 03/02/2024 9:11 PM CDT Narrative Authorizing Provider Result Lauren DEAN - BEAKER POCT LABORATORY [facility] [address] Lab (1st floor, no room number) [address] * (ABNORMAL) Glucose by meter (03/02/2024 8:26 PM CDT) GLUCOSE BY METER POCT 65(L) 70 - 99 mg/dL 03/02/2024 8:34 PM CDT LABORATORY POC Blood, Capillary BLOOD SPECIMEN / Unknown 03/02/2024 8:26 PM CDT 03/02/2024 8:34 PM CDT Narrative Authorizing Provider Result Lauren DEAN - BEXIANG POCT LABORATORY [facility] [address] Lab (1st floor, no room number) [address] * (ABNORMAL) Glucose by meter (03/02/2024 8:01 PM CDT) GLUCOSE BY METER POCT 54(L) 70 - 99 mg/dL 03/02/2024 8:27 PM CDT LABORATORY POC Blood, Capillary BLOOD SPECIMEN / Unknown 03/02/2024 8:01 PM CDT 03/02/2024 8:27 PM CDT Narrative Authorizing Provider Result Lauren DEAN - BEAKER POCT Performing Organization Address [facility]/ZIP Co de Phone Number RH LABORATORY [facility] [address] Lab (1st floor, no room number) [place] [phone] [place] [address] * (ABNORMAL) Glucose by meter (03/02/2024 7:45 PM CDT) GLUCOSE BY METER POCT 41(LL) 70 - 99 mg/dL 03/02/2024 7:55 PM CDT RH LABORATORY POC Blood, Capillary BLOOD SPECIMEN / Unknown 03/02/2024 7:45 PM CDT 03/02/2024 7:55 PM CDT Ron DEAN - DAVID POCT Performing Organization Address [facility]/ZIP Co de Phone Number LABORATORY [facility] [address] Lab (1st floor, no room number) [place] [phone] [place] [address] * (ABNORMAL) Ammonia (on ice) (03/02/2024 3:55 PM CDT) Ammonia <10(L) 16 - 60 umol/L 03/02/2024 4:21 PM CDT RH LABORATORY Blood STRUCTURE OF RIGHT UPPER LIMB / Unknown Venipuncture / Unknown 03/02/2024 3:55 PM CDT 03/02/2024 3:57 PM CDT Raúl Bernard MD LAB - BLOOD ORDERABL ES Performing Organization Address [facility]/ZIP Co de Phone Number LABORATORY [facility] [address] Lab (1st floor, no room number) [place] [phone] * Prepare red blood cells (unit) (03/02/2024 3:29 PM CDT) Blood Component Type Red Blood Cells RH BLOOD BANK Product Code [id number] RH BLOO D BANK Unit Status Transfused RH BLOO D BANK Unit Number [id number] RH B LOOD BANK CROSSMATCH Compatible RH BLOOD BANK CODING SYSTEM [id number] RH BLO OD BANK ISSUE DATE AND TIME [id number] RH BLOOD BANK UNIT ABO/RH O+ RH BLOOD BANK UNIT TYPE ISBT 5100 RH BL OOD BANK 03/02/2024 3:29 PM CDT Raúl Bernard MD BLOOD BANK PRODUCT O RDERABLES Performing Organization Address [facility] Co de Phone Number RH BLOOD BANK [address] [place] [address] * Prepare red blood cells (unit) (03/02/2024 3:29 PM CDT) Blood Component Type Red Blood Cells RH BLOOD BANK Product Code [id number] RH BLOO D BANK Unit Status Transfused RH BLOO D BANK Unit Number [id number] RH B LOOD BANK CROSSMATCH Compatible RH BLOOD BANK CODING SYSTEM [id number] RH BLO OD BANK ISSUE DATE AND TIME [id number] RH BLOOD BANK UNIT ABO/RH O+ RH BLOOD BANK UNIT TYPE ISBT 5100 RH BL OOD BANK 03/02/2024 3:29 PM CDT Raúl Bernard MD BLOOD BANK PRODUCT O RDERABLES Performing Organization Address [facility] de Phone Number RH BLOOD BANK [address] [place] [address] * EKG 12-lead, tracing only (03/02/2024 2:00 PM CDT) Systolic Blood Pressure mmHg RADIOLOGY RESULTS Diastolic Blood Pressure mmHg RADIOLOGY RESULTS Ventricular Rate 82 BPM RAD IOLOGY RESULTS Atrial Rate 82 BPM RADIOLOG Y RESULTS TN Interval 210 ms RADIOLOG Y RESULTS QRS Duration 88 ms RADIOLO GY RESULTS QT 382 ms RADIOLOGY RESULTS QTc 446 ms RADIOLOGY RESULTS P [place] 45 degrees RADIOLOGY RESULTS R AXIS -7 degrees RADIOLOGY RESULTS T [place] 24 degrees RADIOLOGY RESULTS Interpretation ECG Sinus rhythm with 1st degree A-V block Inferior infarct , age undetermined Abnormal ECG When compared with ECG of 24-FEB-2024 10:12, No significant change was found Unconfirmed report - interpretation of this ECG is computer generated - see medical record for final interpretation Confirmed by - EMERGENCY ROOM, PHYSICIAN ([id number]), scientific publications editor YISSEL VELASQUEZ ([id number]) on 03/02/2024 3:43:16 PM RADIOLOGY RESULTS 03/02/2024 [...] the Xpert Xpress CoV2/Flu/RSV Assay on the [employer] GeneXpert Instrument. This test should be ordered [...] management. This test was validated by the [facility] [employer] These laboratories are certified under the Clinical Laboratory Improvement Amendments of 1988 (CLIA-88) as qualified to perform high complexity laboratory testing. Raúl Bernard MD LAB - MICRO GENERAL ORDERABLES Performing Organization Address City/[facility]/ZIP Co de Phone Number [facility] [address] Lab (1st floor, no room number) [place] [address] * Hemoglobin A1c (03/02/2024 1:56 PM [...] ORDERABL ES Performing Organization Address [facility] Co de Phone Number [facility] [address] Lab (1st floor, no room number) [place] [address] * Adult Type and Screen (03/02/2024 1:56 PM CDT) ABO/RH(D) O POS 03/02/2024 2:59 PM CDT RH BLOOD BANK Antibody Screen Negative Negative 03/02/2024 2:59 PM CDT RH BLOOD BANK SPECIMEN EXPIRATION DATE [id number] 03/02/2024 2:59 PM CDT RH BLOOD BANK Blood BLOOD SPECIMEN / Unknown Venipuncture / Unknown 03/02/2024 1:56 PM CDT 03/02/2024 2:15 PM CDT Raúl Bernard MD LAB - BLOOD BANK SHANNON T ORDER Performing Organization Address City/[facility]/ZIP Co de Phone Number BLOOD BANK [address] [place] [address] * (ABNORMAL) CBC with platelets and [...] Performing Organization Address City/[facility]/ZIP Co de Phone Number [facility] [address] Lab (1st floor, no room number) [address] [place] [address] * (ABNORMAL) INR (03/02/2024 1:56 PM CDT) INR 2.09(H) 0.85 - 1.15 03/02/2024 3:14 PM CDT RH LABORATORY Blood BLOOD SPECIMEN / Unknown Venipuncture / Unknown 03/02/2024 1:56 PM CDT 03/02/2024 2:15 PM CDT Raúl Bernard MD LAB - BLOOD ORDERABL ES Performing Organization Address City/[facility]/ZIP Co de Phone Number [facility] [address] Lab (1st floor, no room number) [place] [phone] [place] [address] * (ABNORMAL) Comprehensive metabolic panel (03/02/2024 1:56 [...] Performing Organization Address City/[facility]/ZIP Co de Phone Number [facility] Lab [address] Lab (1st floor, no room number) [place] [address] * Extra Heparinized Syringe (03/02/2024 1:56 PM CDT) Hold Specimen [facility] 03/02/2024 3:17 PM CDT RH LABORATORY Blood, venous BLOOD SPECIMEN / Unknown Venipuncture / Unknown 03/02/2024 1:56 PM CDT 03/02/2024 2:14 PM CDT Raúl Bernard MD LAB - BLOOD ORDERABL ES Performing Organization Address [facility] Co de Phone Number [facility] [address] Lab (1st floor, no room number) [place] [address], [facility] * Extra Blood Bank Purple Top Tube (03/02/2024 1:56 PM CDT) Hold Specimen [facility] 03/02/2024 3:17 PM CDT [facility] Blood BLOOD SPECIMEN / Unknown Venipuncture / Unknown 03/02/2024 1:56 PM CDT 03/02/2024 2:15 PM CDT Raúl Bernard MD LAB - BLOOD ORDERABL ES Performing Organization Address City/[facility]/ZIP Co de Phone Number [facility] [address] Lab (1st floor, no room number) [place] [address], [facility] * Extra Blood Bank Purple Top Tube (03/02/2024 1:56 PM CDT) Hold Specimen [facility] 03/02/2024 3:17 PM CDT [facility] Blood BLOOD SPECIMEN / Unknown Venipuncture / Unknown 03/02/2024 1:56 PM CDT 03/02/2024 2:15 PM CDT Raúl Bernard MD LAB - BLOOD ORDERABL ES Performing Organization Address City/[facility]/ZIP Co de Phone Number [facility] [address] Lab (1st floor, no room number) [place] [address] * Extra Purple Top Tube (03/02/2024 1:56 PM CDT) Hold Specimen [facility] 03/02/2024 3:17 PM CDT [facility] Blood BLOOD SPECIMEN / Unknown Venipuncture / Unknown 03/02/2024 1:56 PM CDT 03/02/2024 2:15 PM CDT Raúl Bernard MD LAB - BLOOD ORDERABL ES Performing Organization Address [facility]/ZIP Co de Phone Number [facility] [address] Lab (1st floor, no room number) [place] [address], [facility] * Extra Green Top ([place] Heparin) Tube (03/02/2024 1:56 PM CDT) Hold Specimen [facility] 03/02/2024 3:17 PM CDT [facility] Blood BLOOD SPECIMEN / Unknown Venipuncture / Unknown 03/02/2024 1:56 PM CDT 03/02/2024 2:15 PM CDT Raúl Bernard MD LAB - BLOOD ORDERABL ES [facility] [address] Lab (1st floor, no room number) [place] [address], [facility] * Extra Red Top Tube (03/02/2024 1:56 PM CDT) Hold Specimen [facility] 03/02/2024 3:17 PM CDT [facility] Blood BLOOD SPECIMEN / Unknown Venipuncture / Unknown 03/02/2024 1:56 PM CDT 03/02/2024 2:15 PM CDT Raúl Bernard MD LAB - BLOOD ORDERABL ES [facility] [address] Lab (1st floor, no room number) [place] [address] * Extra Blue Top Tube (03/02/2024 1:56 PM CDT) Hold Specimen [facility] 03/02/2024 3:17 PM CDT [facility] Blood BLOOD SPECIMEN / Unknown Venipuncture / Unknown 03/02/2024 1:56 PM CDT 03/02/2024 2:15 PM CDT Raúl Bernard MD LAB - BLOOD ORDERABL ES Performing Organization Address [facility]/ZIP Co de Phone Number [facility] [address] Lab (1st floor, no room number) [place] [address] documented in this encounter Visit Diagnoses [...] blood draw 1157 ($Given - Provi norah: Beauty Phouminh Drake, RN) sodium chloride (PF) 0.9% PF flush [...] stools. documented in this encounter Care Teams Supervisor Publications Production Relationship Specialty Start Date End Date Cornell Butt PCP - General 06/24/11 documented as of this encounter
--- OUTSIDE RECORDS SUMMARY | 2024-06-04 11:07 | XMS_ITS | Encounter Summary ---
Author Organization [facility] Address [address] 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
--- OUTSIDE RECORDS SUMMARY | 2024-06-04 11:08 | XMS_ITS | Encounter Summary ---
Author Organization [facility] Address [address] [place] [address] Care Team Providers Care Wrapper Hands Sprayer Name Role Phone Preet Huff Primary Care Provider [phone] Reason for Visit * Reason Comments Altered [...] [facility] [address] [place] [address] Referral ID Status Reason Start Date Expiration Date Visits Re quested Visits Authorized [id number] 1 1 Encounter Details Date Type Department Care Team (Late st Contact Info) Description 02/25/2024 2:50 PM CDT - 02/25/2024 3:[address] [facility] Endoscopy [place] [address] [place] [address] Momo Hercules MD [facility] [place] [address] [facility] [id number] Esophagoscopy, gastroscopy, duodenoscopy (EGD), combined Surgery Details [...] file Gender Identity Male 12/05/2017 10:39 AM JOINERY PATTERNMAKER Sexual Orientation Not on file documented as [...] Perez DO - 02/26/2024 3:13 PM CDT [facility] Hospitalist Discharge Summary Date of Admission: 02/24/2024 [...] confusion noted by family. Patient wasseen at [facility] on 02/22 evening for concerns about [...] his mother and aunt who is his AIR CONDITIONING ENGINEER. He is legally blind as well. Hx [...] minutes discharging this patient. Georgia Perez DO [place] [address] MEDICAL SURGICAL [address] [facility] [address] Physical Exam Vital Signs: Temp: 97.6 ??F [...] is related to your kidney disease. Your sanitation tank washer will help with it. Follow-up and recommended [...] the vertex were obtained without intravenous contrast. Healthcare Consultant (topogram) image(s) also obtained and reviewed. Dose [...] volume loss. FLAKO ZUNIGA MD SYSTEM ID: [id number] CT Abdomen Pelvis w Contrast Narrative EXAM: CT ABDOMEN PELVIS W CONTRAST LOCATION: [facility] DATE: 02/25/2024 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 [...] sent through Care Everywhere. * Esophageal Varices (Central African) documented in this encounter Medications at Time [...] Take 100 mg by mouth every evening amLODIPine (NORVASC) 5 MG tablet Take 5 mg by mouth daily 05/23/2024 atorvastatin (LIPITOR) 20 MG tabletIndications:Mixed hyperlipidemia Take 1 tablet (20 mg) by mouth every evening 30 tablet 3 12/19/2017 05/23/2024 BISACODYL PO Take 10 mg by mouth every other day 03/02/2024 lisinopril (ZESTRIL) 40 MG tablet Take 20 mg by mouth every evening 03/02/2024 warfarin ANTICOAGULANT (COUMADIN) 5 MG tablet Take [...] mom (Arianna), aunt (Thelma) who is alsohis AIR CONDITIONING ENGINEER, cousin (Aron) who is also his AIR CONDITIONING ENGINEER, and another cousin (Javon). Patient reports there are no stairs at home. Self-Care Usual Activity Tolerance good Current Activity Tolerance moderate Equipment Currently Used at Home none Fall history within last six months no (Per patient) Activity/Exercise/Self-Care Comment Patient's family provides 10 hours of AIR CONDITIONING ENGINEER services per day, cousin cares for patient [...] Evaluation Time PT Eval, Moderate Complexity Minutes (67182) 8 Physical Therapy Goals PT Frequency Daily PT Predicted Duration/Target Date for Goal Attainment 02/29/24 PT Goals Bed Mobility;Transfers;Gait PT: Bed Mobility Supine to/from sit;Rolling;Supervision/stand-by assist PT: Transfers Supervision/stand-by assist;Sit to/from stand;Bed to/from chair PT: Gait Supervision/stand-by assist;150 feet Interventions Interventions Quick Adds Therapeutic Activity Therapeutic Activity Therapeutic Activities: dynamic activities to improve functional performance Minutes (49856) 8 Symptoms Noted During/After Treatment Fatigue Treatment [...] lives with family, has 10 hours of AIR CONDITIONING ENGINEER assist per day. Anticipate discharge home with [...] checked every 4 hours. Outpatient Dialysis at [facility] Patient weight shifting, unable to make large shifts due to AVF in thigh Post treatment report given to Andre Franklin RN, RN Please remove patient dressing on AVF and AVG needle sites 24 hours after dialysis. If leaking occurs please apply a Band-Aid. * Georgia Perez DO - 02/25/2024 9:11 AM CDT [facility] Medicine Progress Note - Hospitalist [...] Per his Aunt, patient was seen at [facility] on 02/22 evening for concerns about [...] his mother and aunt who is his AIR CONDITIONING ENGINEER. He is legally blind as well. Hx [...] 2-4 Days Georgia Perez DO Hospitalist Service [facility] Securely message with [employer] (more info) Text page via [employer] Paging/Directory Interval History No acute overnight events. [...] End-stage renal disease: Chronic Tuesday dialysis at [facility] County Attorney: Dr. Holman Access: Left thigh AV graft, [...] evaluation ongoing, possible EGD Mann Brush DO [facility] consultants Office: [phone] Interval History: Patient seen during dialysis, admission [...] medications, labs and imaging. Mann Brush DO [facility] Consultants - Nephrology Office: [phone] * Mazin Srivastava MD - 02/24/2024 6:19 [...] Blackwood PA-C - 02/24/2024 12:12 PM CDT [facility] History and Physical - Hospitalist [...] Per his Aunt, patient was seen at [facility] on 02/22 evening for concerns about [...] his mother and aunt who is his AIR CONDITIONING ENGINEER. He is legally blind as well. Hx [...] provider . GÓMEZ Blackwood PA-C Hospitalist Service [facility] Securely message with [employer] (more info) Text page via [facility] [...] Per his Aunt, patient was seen at [facility] on 02/22 evening for concerns about [...] Informant Patient Reported? Taking? AMLODIPINE BESYLATE PO Compotype Operator Yes No Sig: Take 10 mg by mouth four times a week On Non dialysis days which is MWFSun BISACODYL PO Compotype Operator Yes No Sig: Take 10 mg by mouth four times a week (Takes 2 x 5mg tablet = 10mg dose) Tuesday, Tuesday, Tuesday, and Tuesday Calcium Acetate, Phos Binder, (CALCIUM ACETATE PO) Compotype Operator Yes No Sig: Take 1,334 mg by mouth 3 times daily (with meals) Takes with meals (2 x 667mg tablet) Cholecalciferol (VITAMIN D3 PO) Compotype Operator Yes No Sig: Take 2,000 Units by mouth every evening LISINOPRIL PO Compotype Operator Yes No Sig: Take 40 mg by mouth daily (Takes 2 x 20mg tablet = 40mg ) METOPROLOL TARTRATE PO Compotype Operator Yes No Sig: Take 100 mg [...] the vertex were obtained without intravenous contrast. Healthcare Consultant (topogram) image(s) also obtained and reviewed. Dose [...] volume loss. FLAKO ZUNIGA MD SYSTEM ID: [id number] Associated attestation - Georgia Perez DO - [...] Communication Assessment Patient's communication style: spoken language (Central African or Bilingual) Hearing Difficulty or Deaf: no [...] Support: Care provided by: other (see comments) (AIR CONDITIONING ENGINEER who is an aunt,Thelma and cousin Aron) Provides care for: no one, unable/limited ability to care for self Marital Status: Single AIR CONDITIONING ENGINEER Description of Support System: Supportive, Involved Current Resources: Patient receiving home care services: No Community Resources: County Programs, County Worker, Dialysis Services, OP Dialysis, AIR CONDITIONING ENGINEER, Transportation Services Equipment currently used at home: none Supplies currently used at home: Employment/Financial: Employment Status: unknown Financial Concerns: unknown Does the patient's insurance plan have a 3 day qualifying hospital stay waiver? No Lifestyle & Psychosocial Needs: Social Determinants of Health Food Insecurity: No Food Insecurity (06/23/2022) Received from [facility] Food Insecurity Worried About Running Out of Food in the Last Year: 1 Depression: Not at risk (05/22/2020) Received from [facility] PHQ-2 PHQ-2 Score: 0 Housing Stability: Low Risk (06/23/2022) Received from [facility] Housing Stability Unable to Pay for Housing in the Last Year: 1 Tobacco Use: Medium Risk (11/08/2023) Received from [facility] Patient History Smoking Tobacco Use: Never Smokeless Tobacco Use: Never Passive Exposure: Yes Financial Resource Strain: Low Risk (06/23/2022) Received from [facility] Financial Resource Strain Difficulty of Paying Living Expenses: 3 Difficulty of Paying Living Expenses: Not on file Alcohol Use: Not on file Transportation Needs: No Transportation Needs (06/23/2022) Received from [facility] Transportation Needs Lack of Transportation (Medical): 1 Physical Activity: Not on file Interpersonal Safety: Not on file Stress: Not on file Social Connections: Unknown (06/24/2023) Received from [facility] Social Connections Frequency of Communication with Friends [...] No Current Concerns Values/Beliefs: Spiritual, Cultural Beliefs, Cheondoism Practices, Values that affect care: Additional Information: Chart reviewed. Emergency numbers listed on face sheet have been updated by SW. SW called and spokewith pt's aunt Thelma [phone] who reports pt lives with his mom Arianna, aunt Thelma who is also his AIR CONDITIONING ENGINEER, cousin Aron who is also his AIR CONDITIONING ENGINEER and another cousin Javon. They live in a house. Thelma reports Aron cares for pt Tue-Tue and she provides pt's care on Sundays, he receives 10 hrsof AIR CONDITIONING ENGINEER services a day. She reports he is on a CADI Waiver. She reports he does not use any assistive devices. He gets dialysis on , W, F at [facility] [phone] and gets transportation there through [facility]. Plan: SW will continue to follow pt and assist with discharge planning. Katja Bronson CARTRIDGE FILLER, [facility] Inpatient Care Coordination [facility] [phone] * Dinorah Allen APRN JOINERY PATTERNMAKER - 02/24/2024 2:34 PM CDTAssociated Order(s): GASTROENTEROLOGY IP CONSULT Images from the original note were not included. GASTROENTEROLOGY CONSULTATION Herminio Victor [address] [place] [phone] 58 year old male Admission Date/Time: 02/24/2024 [...] has had a colonoscopy or EGD before. CHIP APPLYING MACHINE TENDER medications reviewed which include omeprazole 20mg daily. [...] to person, tells me he is in tyndall, slow to respond PSYCH: [facility]: I [...] including patient evaluation, reviewing documentation/test results, and parts order and stock clerk. Thank you for asking us to participate in the care of this patient. Dinorah Allen, ADRIAN [facility] ([facility]) [phone] Associated attestation - Momo Hercules MD - [...] 12:59 PM CDTAssociated Order(s): NEPHROLOGY IP CONSULT [facility] Nephrology Consultation Date of Admission: 02/24/2024 Assessment & Plan Herminio Victor is a 58 year old male who was admitted on 02/24/2024. Assessment: 1) End-stage renal disease: Chronic Tuesday dialysis at [facility] County Attorney: Dr. Holman Access: Left thigh AV graft, [...] 3) anemia, GI bleeding workup per hospitalist Mann Brush DO [facility] Consultants - Nephrology [phone] Reason for Consult I was asked to see the patient for ESRD management History is obtained from the patient and chart review. History of Present Illness Herminio Victor is a 58 year old male who presents to the emergency room today with some concerns of anemia, GI bleeding. Also some agitation and altered mentation. Patient dialyzes Wednesdays and Fridays at [facility]. Found to have hemoglobin [...] from dialysis unit, last visit by physician biology department chair on 02/13/2024. Past Medical History I have [...] Procedure: REVISION FISTULA ARTERIOVENOUS LOWER EXTREMITY; Surgeon: Roebr Saravia MD; Location: [facility] OR REVISION FISTULA [...] Informant Patient Reported? Taking? AMLODIPINE BESYLATE PO Compotype Operator Yes No Sig: Take 10 mg by mouth four times a week On Non dialysis days which is MWFSun BISACODYL PO Compotype Operator Yes No Sig: Take 10 mg by mouth four times a week (Takes 2 x 5mg tablet = 10mg dose) Tuesday, Tuesday, Tuesday, and Tuesday Calcium Acetate, Phos Binder, (CALCIUM ACETATE PO) Compotype Operator Yes No Sig: Take 1,334 mg by mouth 3 times daily (with meals) Takes with meals (2 x 667mg tablet) Cholecalciferol (VITAMIN D3 PO) Compotype Operator Yes No Sig: Take 2,000 Units by mouth every evening LISINOPRIL PO Compotype Operator Yes No Sig: Take 40 mg by mouth daily (Takes 2 x 20mg tablet = 40mg ) METOPROLOL TARTRATE PO Compotype Operator Yes No Sig: Take 100 mg [...] Hernandez RN - 02/24/2024 11:51 AM CDT [facility] ED Nurse Handoff Report ED [...] 2. Lift room needed: Yes. Bariatric: No Diesel Roller Operator Needed: No Isolation: No. Infection: Not [...] was sent here. [facility] found to [...] Component Type Red Blood Cells Product Code M3297V77 Unit Status Not used Unit Number [id number] CROSSMATCH Compatible CODING SYSTEM [id number] UNIT ABO/RH O+ UNIT TYPE ISBT 5100 PREPARE RED BLOOD CELLS (UNIT) Blood Component Type Red Blood Cells Product Code V3264L90 Unit Status Ready for issue Unit Number [id number] CROSSMATCH Compatible CODING SYSTEM [id number] PREPARE RED BLOOD CELLS (UNIT) TRANSFUSE RED BLOOD CELLS (UNIT) ABO/RH TYPE AND SCREEN CT Head w/o Contrast Final Result IMPRESSION: 1. No acute intracranial pathology. 2. Chronic small vessel ischemic disease and generalized cerebral volume loss. FLAKO ZUNIGA MD SYSTEM ID: [id number] Treatments provided: See MAR Family Comments: NA [...] was sent here. [facility] found to [...] with mom and his aunt is his AIR CONDITIONING ENGINEER. Past Medical History Medical History and Problem [...] Component Type Red Blood Cells Product Code G9556P82 Unit Status Not used Unit Number [id number] CROSSMATCH Compatible CODING SYSTEM [id number] UNIT ABO/RH O+ UNIT TYPE ISBT 5100 PREPARE RED BLOOD CELLS (UNIT) Blood Component Type Red Blood Cells Product Code Y5485I27 Unit Status Transfused Unit Number [id number] CROSSMATCH Compatible CODING SYSTEM [id number] ISSUE DATE AND TIME [id number] UNIT ABO/RH O+ UNIT TYPE ISBT 5100 PREPARE RED BLOOD CELLS (UNIT) ABO/RH TYPE AND SCREEN Imaging CT Head w/o Contrast Final Result IMPRESSION: 1. No acute intracranial pathology. 2. Chronic small vessel ischemic disease and generalized cerebral volume loss. FLAKO ZUNIGA MD SYSTEM ID: [id number] EKG ECG taken at 1012, ECG read at 1020 Sinus rhythm with 1st degree AV block Otherwise normal ECG No change as compared to prior, dated 01/29/19. Rate 77 bpm. WI interval 210 ms. QRS duration 98 ms. [...] regarding admission. Medical Decision Making / Diagnosis [facility] Diagnoses: None MIPS None MDM Herminio Victor is a 58 year old male with a complex past medical history pertinent for end-stage renal disease on dialysis, long-term anticoagulation use with Coumadin for prior history of DVT, intellectual disability, and long-term care needs assisted with his hospital nursing assistant Aunt Thelma, who presents from dialysis [...] statements to me. Jae Noel MD 02/24/24 0095 documented in this encounter Miscellaneous Notes * Pharmacy-Anticoagulation Service - John Rosado RPH - 02/26/2024 3:30 PM CDT Images from the original note were not included. 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 INR Goal= 2-3 Warfarin CHIP APPLYING MACHINE TENDER Regimen: 5 mg M-F Anticoagulation Dose History [...] lives with family, has 10 hours of AIR CONDITIONING ENGINEER assist per day. Anticipate discharge home with [...] Prevention/Management: SCDs (sequential compression devices) off Taken 02/25/20242099 by Foreign Lozada RN VTE Prevention/Management: SCDs (sequential compression devices) off Intervention: Prevent Infection Recent Flowsheet Documentation Taken 02/26/2024 0000 by Foreign Lozada RN Infection Prevention: single patient room provided rest/sleep promoted Taken 02/25/20242099 by Foreign Lozada RN Infection Prevention: single patient room provided rest/sleep promoted Goal: Optimal Comfort and Wellbeing 02/26/2024423 by Foreign Lozada RN Outcome: Progressing 02/26/2024422 by Foreign Lozada RN Outcome: Not Progressing Goal: Readiness for Transition of Care 02/26/2024 042 by Foreign Lozada RN Outcome: Progressing 02/26/2024 042 by Foreign Lozada RN Outcome: Not Progressing Problem: Pain Acute Goal: Optimal Pain Control and Function 02/26/2024423 by Foreign Lozada RN Outcome: [...] Goal: Absence of Fall and Fall-Related Injury 02/26/2024423 by Foreign Lozada RN Outcome: [...] Flowsheet Documentation Taken 02/26/2024 0000 by Foreign Loazda RN Sensory Stimulation Regulation: quiet environment promoted [...] RN Supportive Measures: self-care encouraged Goal: Hemostasis 02/26/2024 042 by Foreign Lozada RN Outcome: [...] Improved Oral Intake 02/26/2024 042 by Foreign Lozdaa RN Outcome: Progressing 02/26/2024422 by Foreign Lozada [...] Documentation Taken 02/25/2024 1609 by Ramila Singh, senior talent management consultant Interventions: care clustered essential oils Goal: [...] Recent Flowsheet Documentation Taken 02/25/2024 1700 by Raimla Singh RN Environmental Support: calm environment promoted [...] Infection Recent Flowsheet Documentation Taken 02/24/20242314 by Noram Mcmahon RN Infection Prevention: single patient room [...] Prevention: safety round/check completed Taken 02/24/20242314 by Nroma Mcmahon RN Safety Promotion/Fall Prevention: safety round/check [...] shift note. Outcome: Progressing Flowsheets (Taken 02/24/2024 1838) Outcome Evaluation: Hgb 6.7 at 1800 recheck. [...] Fall Risk Recent Flowsheet Documentation Taken 02/24/2024 1665 by Ramila Singh RN Safety Promotion/Fall Prevention: [...] Singh RN - 02/24/2024 9:13 PM CDT Paged for BP 87/33. Received Orders to transfuse 1 unit RBC. * Pharmacy-Admission Medication History - Axel Wiley - 02/24/2024 3:11 PM CDT Tyre [facility] Admission Medication History Admission medication history is complete. The information provided in this note is only as accurateas the sources available at the time of the update. Information Source(s): Family member and CareEverywhere/SureScripts via phone Pertinent Information: Medication list obtained from sister (Thelma) who handles his medications. Changes made to CHIP APPLYING MACHINE TENDER medication list: Added: Calcium Acetate (snack) Deleted: [...] Completed By: Axel Wiley 02/24/2024 3:11 PM CHIP APPLYING MACHINE TENDER Med List Medication Sig Last Dose amLODIPine [...] at PM Associated attestation - Zuleyka Hopkins RP - 02/24/2024 7:30 PM CDT Medication history completed by pharmacy technologist, reviewed by Zuleyka Hopkins, PharmD * Plan [...] Description 07/05/2024 1:15 PM CDT Office Visit [address] [id number] Lizandro Barron MD [address] [id number] Pending Results Name Type Priority Associated Diagnoses [...] B Surface Antibody (02/26/2024 11:13 AM CDT) [facility] Hepatitis B Surface Antibody Reactive 02/26/2024 [...] >1,000.00 <8.5 m[IU]/mL 02/26/2024 4:38 PM CDT U LAB[facility]ATORY Blood STRUCTURE OF LEFT HAND / Unknown Venipuncture / Unknown 02/26/2024 11:13 AM CDT 02/26/2024 11:24 AM CDT Georgia Perez LAB - BLOOD ORDER NADIA U LABORATORY [facility] [address] [facility], [address] [place] [address] * (ABNORMAL) INR (02/26/2024 9:49 AM CDT) INR 1.27(H) 0.85 - 1.15 02/26/2024 10:13 AM CDT LABORATORY Blood STRUCTURE OF RIGHT HAND / Unknown Venipuncture / Unknown 02/26/2024 9:49 AM CDT 02/26/2024 9:58 AM CDT Geogria Perez LAB - BLOOD ORDER NADIA LABORATORY [facility] [address] [facility] Lab (1st floor, no room number) [place] [address] * (ABNORMAL) Renal [...] DO LAB - BLOOD ORDER NADIA LABORATORY [facility] [address] Lab (1st floor, no room number) [place] [address], [facility] * (ABNORMAL) CBC with platelets (02/26/2024 6:10 AM CDT) WBC Count 6.5 4.0 - 11.0 10e3/uL 02/26/2024 6:31 AM CDT LABORATORY RBC Count 2.83(L) 4.40 - 5.90 [...] DO LAB - BLOOD ORDER NADIA LABORATORY [facility] [address] [facility] Lab (1st floor, no room number) [place] [address], [facility] * (ABNORMAL) Ferritin (02/26/2024 6:10 AM CDT) Pathologist [facility] Ferritin 1,463(H) 31 - 409 ng/mL 02/26/2024 12:37 PM CDT [facility] LAB[facility]ATORY Blood STRUCTURE OF RIGHT HAND / Unknown Venipuncture / Unknown 02/26/2024 6:10 AM CDT 02/26/2024 6:20 AM CDT Momo Hercules MD LAB - BLOOD ORDERABL ES [facility] [address] [facility] [address], [address] [place] [address] * (ABNORMAL) Iron and [...] MD LAB - BLOOD ORDERABL ES LABORATORY [facility] [address] Lab (1st floor, no room number) [place] [address] * CT Abdomen [...] EXAM: CT ABDOMEN PELVIS W CONTRAST LOCATION: [facility] DATE: 02/25/2024 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 [...] EXAM: CT ABDOMEN PELVIS W CONTRAST LOCATION: [facility] DATE: 02/25/2024 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 [...] lytic changes involving the superior aspect of [id number] body (series 3, image 137) with some [...] (02/25/2024 3:01 PM CDT) Upper GI Endoscopy [facility] Patient Name: Herminio Victor ? [...] ?Olympus Gastroscope, Model # [id number], Censitrac # [id number] was introduced through the mouth, and ?advanced [...] Electonically signed by Momo Hercules MD MOMO HERCLUES MD 02/25/2024 3:37:52 PM I was physically present for the entire viewing portion of the exam. MOMO HERCULES MD Number of Addenda: 0 Note Initiated On: 02/25/2024 3:01 PM MRN: ?[id number] Procedure Date: ? 02/25/2024 3:01:34 PM Total Procedure Duration: 0 hours 2 minutes 56 seconds Estimated Blood Loss: ? Scope In: 3:19:43 PM Scope Out: 3:22:39 PM RADIOLOGY RESULTS 02/25/2024 3:01 PM CDT Momo Hercules MD PROCEDURES Performing Organization Address [facility] Co de Phone Number RADIOLOGY RESULTS * (ABNORMAL) Hemoglobin (02/25/2024 11:58 AM CDT) Hemoglobin 8.5(L) 13.3 - 17.7 g/dL 02/25/2024 12:03 PM CDT [facility]AT[facility] Blood STRUCTURE OF RIGHT HAND / Unknown Venipuncture / Unknown 02/25/2024 11:58 AM CDT 02/25/2024 12:01 PM CDT Gómez Blackwood PA-C LAB - BLOOD ORDERABL ES Performing Organization Address City/State/[facility] Co de Phone Number [facility]AT[facility] [address] [facility] Lab (1st floor, no room number) [place] [address] * (ABNORMAL) INR (02/25/2024 9:28 AM CDT) INR 3.00(H) 0.85 - 1.15 02/25/2024 9:46 AM CDT LABORATORY Blood BLOOD SPECIMEN / Unknown Venipuncture / Unknown 02/25/2024 9:28 AM CDT 02/25/2024 9:32 AM CDT Geogria Perez DO LAB - BLOOD ORDER NADIA [facility] [address] Lab (1st floor, no room number) [place] [phone] * Hepatitis B surface antigen (02/25/2024 6:45 AM CDT) Hepatitis B Surface Antigen Nonreactive Nonreactive 02/25/2024 10:36 AM CDT LABORATORY Blood STRUCTURE OF LEFT UPPER LIMB / Unknown Venipuncture / Unknown 02/25/2024 6:45 AM CDT 02/25/2024 6:51 AM CDT Mann rBush DO LAB - BLOOD ORDERABL ES LABORATORY [facility] [address] [facility], [address] [place] [address] * (ABNORMAL) Hemoglobin (02/25/2024 6:45 AM CDT) Hemoglobin 7.8(L) 13.3 - 17.7 g/dL 02/25/2024 7:29 AM CDT LABORATORY Blood STRUCTURE OF LEFT UPPER LIMB / Unknown Venipuncture / Unknown 02/25/2024 6:45 AM CDT 02/25/2024 6:51 AM CDT Gómez Blackwood PA-C LAB - BLOOD ORDERABL ES [facility] Lab [address] Lab (1st floor, no room number) [place] [address] * (ABNORMAL) CBC with platelets (02/25/2024 [...] PA-C LAB - BLOOD ORDERABL ES LABORATORY [facility] [address] Lab (1st floor, no room number) [place] [address], [facility] * (ABNORMAL) Basic metabolic panel [...] - 15 mmol/L 02/25/2024 7:22 AM CDT LABORATORY Urea Nitrogen 102.6(H) 8.0 - 23.0 mg/dL 02/25/2024 7:22 AM CDT LABORATORY Creatinine 10.14(H) 0.67 - 1.17 mg/dL 02/25/2024 7:22 AM CDT LABORATORY GFR Estimate 5(L) >60 mL/min/1. 73m2 02/25/2024 7:22 AM CDT LABORATORY Calcium 8.0(L) 8.8 - 10.2 mg/dL 02/25/2024 7:22 AM CDT LABORATORY Glucose 90 70 - 99 mg/dL 02/25/2024 7:22 AM CDT LABORATORY Blood STRUCTURE OF LEFT UPPER LIMB / Unknown Venipuncture / Unknown 02/25/2024 6:45 AM CDT 02/25/2024 6:51 AM CDT Gómez Blackwood PA-C LAB - BLOOD ORDERABL ES LABORATORY [facility] [address] Lab (1st floor, no room number) [place] [address], [facility] * Transfuse red blood cells (unit) (02/25/2024 12:35 AM CDT) Mazin Srivastava MD BLOOD TRANSFUSION OR DERABLES * Transfuse red blood cells (unit), 1 Units (02/25/2024 12:35 AM CDT) Mazin Srivastava MD BLOOD TRANSFUSION OR DERABLES * Prepare red blood cells (unit) (02/24/2024 9:17 PM CDT) Blood Component Type Red Blood Cells RH BLOOD BANK Product Code [id number] RH BLOO D BANK Unit Status Transfused RH BLOO D BANK Unit Number [id number] RH B LOOD BANK CROSSMATCH Compatible RH BLOOD BANK CODING SYSTEM [id number] RH BLO OD BANK ISSUE DATE AND TIME [id number] RH BLOOD BANK UNIT ABO/RH O+ RH BLOOD BANK UNIT TYPE ISBT 5100 RH BL OOD BANK 02/24/2024 9:17 PM CDT Mazin Srivastava MD BLOOD BANK PRODUCT O RDERABLES Performing Organization Address [facility] Co de Phone Number RH BLOOD BANK [address] [place] [address] * Transfuse red blood cells (unit) (02/24/2024 9:11 PM CDT) Mazin Srivastava MD BLOOD TRANSFUSION OR DERABLES * Transfuse red blood cells (unit), 1 Units (02/24/2024 9:11 PM CDT) Mazin Srivastava MD BLOOD TRANSFUSION OR DERABLES * Prepare red blood cells (unit) (02/24/2024 6:19 PM CDT) Blood Component Type Red Blood Cells RH BLOOD BANK Product Code [id number] RH BLOO D BANK Unit Status Transfused RH BLOO D BANK Unit Number [id number] RH B LOOD BANK CROSSMATCH Compatible RH BLOOD BANK CODING SYSTEM [id number] RH BLO OD BANK ISSUE DATE AND TIME [id number] RH BLOOD BANK UNIT ABO/RH O+ RH BLOOD BANK UNIT TYPE ISBT 5100 RH BL OOD BANK 02/24/2024 6:19 PM CDT Jae Noel MD BLOOD BANK PRODUCT O RDERABLES Performing Organization Address City/[facility]/ZIP Co de Phone Number RH BLOOD BANK [address] [place] [address] * (ABNORMAL) Hemoglobin (02/24/2024 5:51 PM CDT) Pathologist [facility] Hemoglobin 6.7(LL) 13.3 - 17.7 g/dL 02/24/2024 6:14 PM CDT RH LABORATORY Blood STRUCTURE OF LEFT UPPER LIMB / Unknown Venipuncture / Unknown 02/24/2024 5:51 PM CDT 02/24/2024 6:00 PM CDT Gómez Blackwood PA-C LAB - BLOOD ORDERABL ES LABORATORY [facility] [address] [facility] Lab (1st floor, no room number) [place] [address] * Transfuse red blood cells (unit) (02/24/2024 2:35 PM CDT) Jae Noel MD BLOOD TRANSFUSION OR DERABLES * Transfuse red blood cells (unit), 1 Units (02/24/2024 2:35 PM CDT) Jae Noel MD BLOOD TRANSFUSION OR DERABLES * Prepare red blood cells (unit) (02/24/2024 11:35 AM CDT) Pathologist [facility] Blood Component Type Red Blood Cells RH BLOOD BANK Product Code [id number] RH BLOO D BANK Unit Status Transfused RH BLOO D BANK Unit Number [id number] RH B LOOD BANK CROSSMATCH Compatible RH BLOOD BANK CODING SYSTEM [id number] RH BLO OD BANK ISSUE DATE AND TIME [id number] RH BLOOD BANK UNIT ABO/RH O+ RH BLOOD BANK UNIT TYPE ISBT 5100 RH BL OOD BANK 02/24/2024 11:3 5 AM CDT Jae Noel MD BLOOD BANK PRODUCT O RDERABLES BLOOD BANK [address] [place] [address] * (ABNORMAL) Occult blood stool (02/24/2024 11:31 AM CDT) Pathologist [facility] Occult Blood Positive(A ) Negative [facility] 02/24/2024 11:40 AM CDT LABORATORY Stool RECTAL CONTENTS / Unknown Non-blood Collection / Unknown 02/24/2024 11:31 AM CDT 02/24/2024 11:38 AM CDT Jae Noel MD LAB - STOOLS ORDERAB LES LABORATORY [facility] [address] [facility] Lab (1st floor, no room number) [place] [address] * CT Head w/o Contrast (02/24/2024 10:42 AM CDT) Anatomical Region Laterality Modality Head, SUBRAD CT NEURO, SUBRA D CT NEURO, UMP CT NEURO, RAD CT Computed Tomography Impressions 02/24/2024 11:11 AM CDT IMPRESSION: 1. No acute intracranial pathology. 2. Chronic small vessel ischemic disease and generalized cerebral volume loss. FLAKO ZUNIGA MD SYSTEM ID: ??[id number] Narrative 02/24/2024 11:11 AM CDT EXAM: CT HEAD W/O CONTRAST ??02/24/2024 10:42 AM HISTORY: ??Altered mental status, cocnern for ICH, on coumadin ?? COMPARISON: ??No prior similar studies TECHNIQUE: Using multidetector thin collimation helical acquisition technique, axial, coronal and sagittal CT images from the skull base to the vertex were obtained without intravenous contrast. Healthcare Consultant (topogram) image(s) also obtained and reviewed. Dose [...] the vertex were obtained without intravenous contrast. Healthcare Consultant (topogram) image(s) also obtained and reviewed. Dose [...] volume loss. FLAKO ZUNIGA MD SYSTEM ID: [id number] Jae Noel MD IM CT ORDERABLES * [...] LAB - BEAKER POCT RH LABORATORY POC [facility] [address] Lab (1st floor, no room number) [place] [address] * EKG 12-lead, tracing only (02/24/2024 10:12 AM CDT) Systolic Blood Pressure mmHg RADIOLOGY RESULTS Diastolic Blood Pressure mmHg RADIOLOGY RESULTS Ventricular Rate 77 BPM RAD IOLOGY RESULTS Atrial Rate 77 BPM RADIOLOG Y RESULTS WI Interval 210 ms RADIOLOG Y RESULTS QRS Duration 98 ms RADIOLO GY RESULTS QT 382 ms RADIOLOGY RESULTS QTc 432 ms RADIOLOGY RESULTS P [place] 49 degrees RADIOLOGY RESULTS R AXIS 6 degrees RADIOLOGY RESULTS T [place] 36 degrees RADIOLOGY RESULTS Interpretation ECG Sinus rhythm with 1st degree A-V block Otherwise normal ECG When compared with ECG of 16-DEC-2015 14:48, Criteria for Septal infarct are no longer Present Unconfirmed report - interpretation of this ECG is computer generated - see medical record for final interpretation Confirmed by - EMERGENCY ROOM, PHYSICIAN ([id number]), subeditor YISSEL VELASQUEZ ([id number]) on 02/24/2024 10:54:14 AM RADIOLOGY RESULTS 02/24/2024 10:1 2 AM CDT 02/24/2024 10:54 AM CDT Jae Noel MD ECG ORDERABLES Performing Organization Address [facility] Co de Phone Number RADIOLOGY RESULTS * Adult Type and Screen (02/24/2024 10:07 AM CDT) ABO/RH(D) O POS 02/24/2024 10:08 AM CDT RH BLOOD BANK Antibody Screen Negative Negative 02/24/2024 10:08 AM CDT RH BLOOD BANK SPECIMEN EXPIRATION DATE [id number] 02/24/2024 10:08 AM CDT RH BLOOD BANK Blood STRUCTURE OF RIGHT UPPER LIMB / Unknown Venipuncture / Unknown 02/24/2024 10:07 AM CDT 02/24/2024 10:12 AM CDT Jae Noel MD LAB - BLOOD BANK SHANNON T ORDER BLOOD BANK [address] [place] [address] * Ammonia (02/24/2024 10:06 AM CDT) Ammonia 26 16 - 60 umol/L 02/24/2024 10:32 AM CDT RH LABORATORY Blood STRUCTURE OF RIGHT UPPER LIMB / Unknown Venipuncture / Unknown 02/24/2024 10:06 AM CDT 02/24/2024 10:13 AM CDT Jae Noel MD LAB - BLOOD ORDERABL ES LABORATORY [facility] [address] [facility] Lab (1st floor, no room number) [place] [address] * (ABNORMAL) CBC [...] LAB - BLOOD ORDERABL ES RH LABORATORY [facility] [address] Lab (1st floor, no room number) [place] [address], [facility] * (ABNORMAL) INR (02/24/2024 9:58 AM CDT) INR 2.46(H) 0.85 - 1.15 02/24/2024 10:26 AM CDT RH LABORATORY Blood STRUCTURE OF RIGHT UPPER LIMB / Unknown Venipuncture / Unknown 02/24/2024 9:58 AM CDT 02/24/2024 10:11 AM CDT Jae Noel MD LAB - BLOOD ORDERABL ES LABORATORY [facility] [address] Lab (1st floor, no room number) [place] [address] * (ABNORMAL) Comprehensive metabolic panel (02/24/2024 [...] LAB - BLOOD ORDERABL ES RH LABORATORY [facility] [address] [facility] ([facility], no room number) [place] [address], [facility] * Extra Purple Top Tube (02/24/2024 9:58 AM CDT) [facility] Hold Specimen [facility] 02/24/2024 11:16 AM CDT RH LABORATORY Blood STRUCTURE OF RIGHT UPPER LIMB / Unknown Venipuncture / Unknown 02/24/2024 9:58 AM CDT 02/24/2024 10:11 AM CDT Jae Noel MD LAB - BLOOD ORDERABL ES [facility] [address] Lab (1st floor, no room number) [place] [address], [facility] * Extra Green Top ([place] Heparin) Tube (02/24/2024 9:58 AM CDT) Hold Specimen [facility] 02/24/2024 11:16 AM CDT RH LABORATORY Blood STRUCTURE OF RIGHT UPPER LIMB / Unknown Venipuncture / Unknown 02/24/2024 9:58 AM CDT 02/24/2024 10:11 AM CDT Jae Noel MD LAB - BLOOD ORDERABL ES Performing Organization Address City/[facility]/ZIP Co de Phone Number [facility] [address] Lab (1st floor, no room number) [place] [address], [facility] * Extra Blue Top Tube (02/24/2024 9:58 AM CDT) Hold Specimen [facility] 02/24/2024 11:16 AM CDT RH LABORATORY Blood STRUCTURE OF RIGHT UPPER LIMB / Unknown Venipuncture / Unknown 02/24/2024 9:58 AM CDT 02/24/2024 10:11 AM CDT Jae Noel MD LAB - BLOOD ORDERABL ES [facility] [address] Lab (1st floor, no room number) [place] [address], [facility] documented in this encounter Visit [...] Flush (COMPLETED) Intravenous, 100 mL, ONCE, On Tue02/25/24 at 1700, For 1 dose, This entry [...] given after dialysis)2107 ($Given - Provider: Foreign Lozada, LINDA) 0831 ($Given - Provider: Adalgisa Amaya RN) [...] Franklin RN)2107 ($Given - Provider: Foreign Lozada, LINDA) 0531 (Not Given - Provider: Foreign Lozada [...] Yasemin Colunga RN)1131 (Stopped - Provider: Yasemin Colunga RN) sodium [...] on 02/25/24 at 1421, For 1 dose, [place] throat with 1 spray 5 minutes prior [...] when verbally requested by provider., Starting on Tue02/25/24 at 1421, Doses can be exceeded under [...] stools. documented in this encounter Care Teams Wrapper Hands Sprayer Relationship Specialty Start Date End Date Preet Huff PCP - General 06/24/11 documented as of this encounter
--- OUTSIDE RECORDS SUMMARY | 2024-06-04 11:08 | XMS_ITS ---
Author Organization [facility] Address [address] [place] [address] Care Team Providers Care Human Relations Teacher Name Role Phone Preet Huff Primary Care Provider [phone] Transitional Care Management Status:Closed (Closed) Start date:02/27/2024 Enrollment date:02/27/2024 End date:03/12/2024 Close reason:Goals met Continued Care and Services Coordination
--- OUTSIDE RECORDS SUMMARY | 2024-06-04 11:08 | XMS_ITS | Encounter Summary ---
Author Organization [facility] Address [address] [place] [address] Care Team Providers Care Professor Of Business Name Role Phone Preet Huff Primary Care Provider [phone] Jaxon Saravia MD Unavailable [phone] Encounter Details Date Type Department Care Team (Late st Contact Info) Description 12/21/2012 Orders Only [facility] Interventional Radiology [address] 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 Sexual Orientation Not on file documented as of this encounter Plan of Treatment Upcoming Encounters Date Type Department Care Team (Late st Contact Info) Description 07/05/2024 1:15 PM CDT Office Visit [address] [address] Lizandro Barron MD [address] [place] [address] documented as of this encounter Visit Diagnoses Not on filedocumented in this encounter Care Teams Professor Of Business Relationship Specialty Start Date End Date Preet Huff PCP - General 06/24/11 Jaxon Saravia MD [address] [place] [address] Assigned Heart and Vascular Provider 08/01/20 12/06/20 documented as of this encounter
--- OUTSIDE RECORDS SUMMARY | 2024-06-04 11:08 | XMS_ITS | Encounter Summary ---
Author Organization [facility] Address [address] [place] [address] Care Team Providers Care Earth Science Teacher Name Role Phone Preet Huff Primary Care Provider [phone] Jaxon Saravia MD Unavailable [phone] Encounter Details Date Type Department Care Team (Late st Contact Info) Description 05/07/2013 Orders Only [facility] Interventional Radiology [address] 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 Sexual Orientation Not on file documented as of this encounter Plan of Treatment Upcoming Encounters Date Type Department Care Team (Late st Contact Info) Description 07/05/2024 1:15 PM CDT Office Visit [address] [address] Lizandro Barron MD [address] [place] [address] documented as of this encounter Visit Diagnoses Not on filedocumented in this encounter Care Teams Earth Science Teacher Relationship Specialty Start Date End Date Preet Huff PCP - General 06/24/11 Jaxon Saravia MD [address] [place] [address] Assigned Heart and Vascular Provider 08/01/20 12/06/20 documented as of this encounter
--- OUTSIDE RECORDS SUMMARY | 2024-06-04 11:08 | XMS_ITS | Encounter Summary ---
Author Organization [place] Address [address] [place] [address] Care Team Providers Care Manufacturing Accountant Name Role Phone Preet Huff Primary Care Provider [phone] Reason for Visit * Reason Comments Altered [...] type Rh 3 Medical Surgical [address] [place] [address] Referral ID Status Reason Start Date Expiration Date Visits Re quested Visits Authorized [id number] 1 1 Encounter Details Date Type Department Care Team (Late st Contact Info) Description 02/24/2024 9:38 AM CDT - 02/26/2024 3:30 PM CDT Hospital Encounter [facility] 3 Medical Surgical [address] [place] [address] Jae Noel MD [facility] [address] [place], [place] [address] Georgia Perez DO [address] [place], [place] [id number] Anemia, unspecified type; ESRD on dialysis (H); [...] file Gender Identity Male 12/05/2017 10:39 AM PROGRAMS MANAGER Sexual Orientation Not on file documented [...] Perez DO - 02/26/2024 3:13 PM CDT [facility] Hospital Hospitalist Discharge Summary Date [...] confusion noted by family. Patient wasseen at [facility] on 02/22 evening for concerns about [...] his mother and aunt who is his METAL ENGINEERING PROCESS WORKER. He is legally blind as well. Hx [...] minutes discharging this patient. Georgia Perez DO [address] SURGICAL [address] [facility] [address] Physical Exam Vital Signs: Temp: 97.6 ??F [...] is related to your kidney disease. Your furnace feeder will help with it. Follow-up and recommended [...] the vertex were obtained without intravenous contrast. Heater Tender (topogram) image(s) also obtained and reviewed. Dose [...] volume loss. FLAKO ZUNIGA MD SYSTEM ID: [id number] CT Abdomen Pelvis w Contrast Narrative EXAM: CT ABDOMEN PELVIS W CONTRAST LOCATION: [facility] DATE: 02/25/2024 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 [...] sent through Care Everywhere. * Esophageal Varices (Filipino) documented in this encounter Medications at Time [...] Signing Clinician's Name / Credentials (PT) Mirtha Edgar PT, DPT Living Environment People in Home parent(s);other (see comments) Current Living Arrangements house Transportation Anticipated family or friend will provide Living Environment Comments Patient lives in a house with his mom (Arianna), aunt (Thelma) who is alsohis METAL ENGINEERING PROCESS WORKER, cousin (Aron) who is also his METAL ENGINEERING PROCESS WORKER, and another cousin (Javon). Patient reports there are no stairs at home. Self-Care Usual Activity Tolerance good Current Activity Tolerance moderate Equipment Currently Used at Home none Fall history within last six months no (Per patient) Activity/Exercise/Self-Care Comment Patient's family provides 10 hours of METAL ENGINEERING PROCESS WORKER services per day, cousin cares for patient [...] Evaluation Time PT Eval, Moderate Complexity Minutes (84937) 8 Physical Therapy Goals PT Frequency Daily PT Predicted Duration/Target Date for Goal Attainment 02/29/24 PT Goals Bed Mobility;Transfers;Gait PT: Bed Mobility Supine to/from sit;Rolling;Supervision/stand-by assist PT: Transfers Supervision/stand-by assist;Sit to/from stand;Bed to/from chair PT: Gait Supervision/stand-by assist;150 feet Interventions Interventions Quick Adds Therapeutic Activity Therapeutic Activity Therapeutic Activities: dynamic activities to improve functional performance Minutes (05081) 8 Symptoms Noted During/After Treatment Fatigue Treatment [...] lives with family, has 10 hours of METAL ENGINEERING PROCESS WORKER assist per day. Anticipate discharge home with [...] 4 hours. Outpatient Dialysis at [facility] Patient weight shifting, unable to make large shifts due to AVF in thigh Post treatment report given to Andre Franklin RN, RN Please remove patient dressing on AVF and AVG needle sites 24 hours after dialysis. If leaking occurs please apply a Band-Aid. * Georgia Perez DO - 02/25/2024 9:11 AM CDT [facility] Medicine Progress Note - [...] Per his Aunt, patient was seen at [facility] on 02/22 evening for concerns about [...] his mother and aunt who is his METAL ENGINEERING PROCESS WORKER. He is legally blind as well. Hx [...] 2-4 Days Georgia Perez DO Hospitalist Service [facility] Securely message with [employer] (more info) Text page via [facility] Paging/Directory Interval History No acute overnight events. [...] disease: Chronic Tuesday dialysis at [facility] Surveillance Sensor Operator: Dr. Holman Access: Left thigh AV graft, [...] evaluation ongoing, possible EGD Mann Brush DO [facility] consultants Office: [phone] Interval History: Patient seen during dialysis, admission [...] Results Component Value Date AST 02/24/2024 ALT 02/24/2024 ALKPHOS 72 02/24/2024 BILITOTAL 0.5 02/24/2024 DARLINE 26 02/24/2024 Lab Results Component Value Date INR 2.46 (H) 02/24/2024 Attestation: I have reviewed today's vital signs, notes, medications, labs and imaging. Mann Brush DO [facility] - Nephrology Office: [phone] * Mazin Srivastava MD - 02/24/2024 6:19 [...] Blackwood PA-C - 02/24/2024 12:12 PM CDT [facility] History and Physical - [...] Per his Aunt, patient was seen at [facility] on 02/22 evening for concerns about [...] his mother and aunt who is his METAL ENGINEERING PROCESS WORKER. He is legally blind as well. Hx [...] provider . GÓMEZ Blackwood PA-C Hospitalist Service [facility] Securely message with [employer] (more info) Text page via [facility] Paging/Directory Chief Complaint Dark stools History is [...] Per his Aunt, patient was seen at [facility] on 02/22 evening for concerns about [...] Informant Patient Reported? Taking? AMLODIPINE BESYLATE PO Graduate Rn Yes No Sig: Take 10 mg by mouth four times a week On Non dialysis days which is MWFSun BISACODYL PO Graduate Rn Yes No Sig: Take 10 mg by mouth four times a week (Takes 2 x 5mg tablet = 10mg dose) Tuesday, Tuesday, Tuesday, and Tuesday Calcium Acetate, Phos Binder, (CALCIUM ACETATE PO) Graduate Rn Yes No Sig: Take 1,334 mg by mouth 3 times daily (with meals) Takes with meals (2 x 667mg tablet) Cholecalciferol (VITAMIN D3 PO) Graduate Rn Yes No Sig: Take 2,000 Units by mouth every evening LISINOPRIL PO Graduate Rn Yes No Sig: Take 40 mg by mouth daily (Takes 2 x 20mg tablet = 40mg ) METOPROLOL TARTRATE PO Graduate Rn Yes No Sig: Take 100 mg by [...] the vertex were obtained without intravenous contrast. Heater Tender (topogram) image(s) also obtained and reviewed. Dose [...] volume loss. FLAKO ZUNIGA MD SYSTEM ID: [id number] Associated attestation - Georgia Perez DO - [...] Communication Assessment Patient's communication style: spoken language (Filipino or Bilingual) Hearing Difficulty or Deaf: no [...] Support: Care provided by: other (see comments) (METAL ENGINEERING PROCESS WORKER who is an aunt,Thelma and cousin Aron) Provides care for: no one, unable/limited ability to care for self Marital Status: Single METAL ENGINEERING PROCESS WORKER Description of Support System: Supportive, Involved Current Resources: Patient receiving home care services: No Community Resources: County Programs, County Worker, Dialysis Services, OP Dialysis, METAL ENGINEERING PROCESS WORKER, Transportation Services Equipment currently used at home: none Supplies currently used at home: Employment/Financial: Employment Status: unknown Financial Concerns: unknown Does the patient's insurance plan have a 3 day qualifying hospital stay waiver? No Lifestyle & Psychosocial Needs: Social Determinants of Health Food Insecurity: No Food Insecurity (06/23/2022) Received from [employer] Food Insecurity Worried About Running Out of Food in the Last Year: 1 Depression: Not at risk (05/22/2020) Received from [employer] PHQ-2 PHQ-2 Score: 0 Housing Stability: Low Risk (06/23/2022) Received from [employer] Housing Stability Unable to Pay for Housing in the Last Year: 1 Tobacco Use: Medium Risk (11/08/2023) Received from [employer] Patient History Smoking Tobacco Use: Never Smokeless Tobacco Use: Never Passive Exposure: Yes Financial Resource Strain: Low Risk (06/23/2022) Received from [employer] Financial Resource Strain Difficulty of Paying Living Expenses: 3 Difficulty of Paying Living Expenses: Not on file Alcohol Use: Not on file Transportation Needs: No Transportation Needs (06/23/2022) Received from [facility] Transportation Needs Lack of Transportation (Medical): 1 Physical Activity: Not on file Interpersonal Safety: Not on file Stress: Not on file Social Connections: Unknown (06/24/2023) Received from [facility] Social Connections Frequency of Communication with [...] No Current Concerns Values/Beliefs: Spiritual, Cultural Beliefs, Congregational Practices, Values that affect care: Additional Information: Chart reviewed. Emergency numbers listed on face sheet have been updated by [facility]. SW called and spokewith pt's aunt Thelma [phone] who reports pt lives with his mom Arianna, aunt Thelma who is also his METAL ENGINEERING PROCESS WORKER, cousin Aron who is also his METAL ENGINEERING PROCESS WORKER and another cousin Javon. They live in a house. Thelma reports Aron cares for pt Tue-Tue and she provides pt's care on Sundays, he receives 10 hrsof METAL ENGINEERING PROCESS WORKER services a day. She reports he is on a CADI Waiver. She reports he does not use any assistive devices. He gets dialysis on M, W, F at [facility] [phone] and gets transportation there through [place] transport. Plan: [facility] will continue to follow pt and assist with discharge planning. Katja Bronson FAMILY SERVICE AIDE, [facility] Inpatient Care Coordination [facility] [phone] * Dinorah Allen APRN [employer] - 02/24/2024 2:34 PM CDTAssociated Order(s): GASTROENTEROLOGY IP CONSULT Images from the original note were not included. GASTROENTEROLOGY CONSULTATION Herminio Victor [address] [place] [id number] 58 year old male Admission Date/Time: 02/24/2024 [...] has had a colonoscopy or EGD before. OXYHYDROGEN WELDER medications reviewed which include omeprazole 20mg daily. [...] to person, tells me he is in truro, slow to respond PSYCH: [facility]S: I reviewed the patient's new clinical [...] including patient evaluation, reviewing documentation/test results, and service order taker. Thank you for asking us to participate in the care of this patient. Dinorah Allen, ADRIAN [facility] ([facility]) [phone] Associated attestation - Momo Hercules MD - [...] 12:59 PM CDTAssociated Order(s): NEPHROLOGY IP CONSULT [facility] Nephrology Consultation Date of Admission: 02/24/2024 Assessment & Plan Herminio Victor is a 58 year old male who was admitted on 02/24/2024. Assessment: 1) End-stage renal disease: Chronic Tuesday dialysis at [facility] Surveillance Sensor Operator: Dr. Holman Access: Left thigh AV graft, [...] hospitalist DO [facility] Nephrology [phone] Reason for Consult I was asked to see the patient for ESRD management History is obtained from the patient and chart review. History of Present Illness Herminio Victor is a 58 year old male who presents to the emergency room today with some concerns of anemia, GI bleeding. Also some agitation and altered mentation. Patient dialyzes Wednesdays and Fridays at [facility]. Found to have hemoglobin of 6.2 [...] from dialysis unit, last visit by physician stone and plate preparer apprentice on 02/13/2024. Past Medical History I have [...] Informant Patient Reported? Taking? AMLODIPINE BESYLATE PO Graduate Rn Yes No Sig: Take 10 mg by mouth four times a week On Non dialysis days which is MWFSun BISACODYL PO Graduate Rn Yes No Sig: Take 10 mg by mouth four times a week (Takes 2 x 5mg tablet = 10mg dose) Tuesday, Tuesday, Tuesday, and Tuesday Calcium Acetate, Phos Binder, (CALCIUM ACETATE PO) Graduate Rn Yes No Sig: Take 1,334 mg by mouth 3 times daily (with meals) Takes with meals (2 x 667mg tablet) Cholecalciferol (VITAMIN D3 PO) Graduate Rn Yes No Sig: Take 2,000 Units by mouth every evening LISINOPRIL PO Graduate Rn Yes No Sig: Take 40 mg by mouth daily (Takes 2 x 20mg tablet = 40mg ) METOPROLOL TARTRATE PO Graduate Rn Yes No Sig: Take 100 mg by [...] Hernandez RN - 02/24/2024 11:51 AM CDT [facility] ED Nurse Handoff Report [...] 2. Lift room needed: Yes. Bariatric: No Collection Correspondent Needed: No Isolation: No. Infection: Not Applicable. [...] was sent here. He was seen at [facility] yesterday but nothing was found to [...] Component Type Red Blood Cells Product Code R4186S12 Unit Status Not used Unit Number [id number] CROSSMATCH Compatible CODING SYSTEM [id number] UNIT ABO/RH O+ UNIT TYPE ISBT 5100 PREPARE RED BLOOD CELLS (UNIT) Blood Component Type Red Blood Cells Product Code J9677J79 Unit Status Ready for issue Unit Number [id number] CROSSMATCH Compatible CODING SYSTEM [id number] PREPARE RED BLOOD CELLS (UNIT) TRANSFUSE RED BLOOD CELLS (UNIT) ABO/RH TYPE AND SCREEN CT Head w/o Contrast Final Result IMPRESSION: 1. No acute intracranial pathology. 2. Chronic small vessel ischemic disease and generalized cerebral volume loss. FLAKO ZUNIGA MD SYSTEM ID: [id number] Treatments provided: See MAR Family Comments: NA [...] was sent here. He was seen [facility] yesterday but nothing was found to [...] with mom and his aunt is his METAL ENGINEERING PROCESS WORKER. Past Medical History Medical History and Problem [...] Component Type Red Blood Cells Product Code F6517Y79 Unit Status Not used Unit Number [id number] CROSSMATCH Compatible CODING SYSTEM [id number] UNIT ABO/RH O+ UNIT TYPE ISBT 5100 PREPARE RED BLOOD CELLS (UNIT) Blood Component Type Red Blood Cells Product Code K5284U74 Unit Status Transfused Unit Number [id number] CROSSMATCH Compatible CODING SYSTEM [id number] ISSUE DATE AND TIME UNIT ABO/RH O+ UNIT TYPE ISBT 5100 PREPARE RED BLOOD CELLS (UNIT) ABO/RH TYPE AND SCREEN Imaging CT Head w/o Contrast Final Result IMPRESSION: 1. No acute intracranial pathology. 2. Chronic small vessel ischemic disease and generalized cerebral volume loss. FLAKO ZUNIGA MD SYSTEM ID: [id number] EKG ECG taken at 1012, ECG read at 1020 Sinus rhythm with 1st degree AV block Otherwise normal ECG No change as compared to prior, dated 01/29/19. Rate 77 bpm. VT interval 210 ms. QRS duration 98 ms. [...] admission. Medical Decision Making / Diagnosis [facility] Diagnoses: None MIPS None MDM Herminio Victor is a 58 year old male with a complex past medical history pertinent for end-stage renal disease on dialysis, long-term anticoagulation use with Coumadin for prior history of DVT, intellectual disability, and long-term care needs assisted with his promotional advertising assistant Aunt Thelma, who presents from dialysis [...] statements to me. Jae Noel MD 02/24/24 1548 documented in this encounter Miscellaneous Notes * Pharmacy-Anticoagulation Service - [facility] - 02/26/2024 3:30 PM CDT Images from the original note were not included. 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 INR Goal= 2-3 Warfarin OXYHYDROGEN WELDER Regimen: 5 mg M-F Anticoagulation Dose History [...] lives with family, has 10 hours of METAL ENGINEERING PROCESS WORKER assist per day. Anticipate discharge home with [...] of Hospital-Acquired Illness or Injury 02/26/2024423 by oFreign Lozada RN Outcome: Progressing 02/26/2024422 by Foreign [...] Documentation Taken 02/25/2024 1609 by Ramila Singh, trust mail clerk Interventions: care clustered essential oils Goal: Readiness [...] shift note. Outcome: Progressing Flowsheets (Taken 02/24/2024 2373) Outcome Evaluation: Hgb 6.7 at 1800 recheck. [...] Axel Wiley - 02/24/2024 3:11 PM CDT Factory Supervisor Admission Medication History Admission medication history is complete. The information provided in this note is only as accurateas the sources available at the time of the update. Information Source(s): Family member and CareEverywhere/SureScript[employer] via phone Pertinent Information: Medication list obtained from sister (Thelma) who handles his medications. Changes made to OXYHYDROGEN WELDER medication list: Added: Calcium Acetate (snack) Deleted: [...] Completed By: Axel Wiley 02/24/2024 3:11 PM OXYHYDROGEN WELDER Med List Medication Sig Last Dose amLODIPine [...] PM CDT Medication history completed by pharmacy assistant, reviewed by Zuleyka Hopkins, PharmD * Plan [...] Description 07/05/2024 1:15 PM CDT Office Visit [address] [address] Lizandro Barron MD [address] [address] Pending Results Name Type Priority Associated Diagnoses [...] LAB - BLOOD ORDER NADIA [facility] LABORATORY [facility] [employer] Core Lab [address] [facility], [address] [place] [address] * (ABNORMAL) INR (02/26/2024 9:49 AM CDT) INR 1.27(H) 0.85 - 1.15 02/26/2024 10:13 AM CDT LABORATORY Blood STRUCTURE OF RIGHT HAND / Unknown Venipuncture / Unknown 02/26/2024 9:49 AM CDT 02/26/2024 9:58 AM CDT Georgia Perez DO LAB - BLOOD ORDER NADIA LABORATORY [facility] Acute Care Lab [address] Lab (1st floor, no room number) [place] [address] * (ABNORMAL) Renal panel (02/26/2024 6:10 [...] DO LAB - BLOOD ORDER NADIA LABORATORY [facility] Acute Care Lab [address] [facility] Lab (1st floor, no room number) [place] [address], [facility] * (ABNORMAL) CBC with platelets (02/26/2024 6:10 AM CDT) [facility] Signature WBC Count 6.5 4.0 - 11.0 10e3/uL 02/26/2024 6:31 AM CDT LABORATORY RBC Count 2.83(L) 4.40 - 5.90 10e6/uL 02/26/2024 6:31 AM CDT LABORATORY Hemoglobin 8.4(L) 13.3 - 17.7 g/dL [...] LAB - BLOOD ORDER NADIA RH LABORATORY [facility] Care Lab [address] Lab (1st floor, no room number) [place] [address], [facility] * (ABNORMAL) Ferritin (02/26/2024 6:10 AM CDT) Pathologist [facility] Ferritin 1,463(H) 31 - 409 ng/mL 02/26/2024 12:37 PM CDT UU LABORATORY Blood STRUCTURE OF RIGHT HAND / Unknown Venipuncture / Unknown 02/26/2024 6:10 AM CDT 02/26/2024 6:20 AM CDT Momo Hercules MD LAB - BLOOD ORDERABL ES [facility]U LABORATORY [facility] [employer] Core Lab [address] [facility], [address] [place] [address], [facility] * (ABNORMAL) Iron and iron binding capacity [...] MD LAB - BLOOD ORDERABL ES LABORATORY [facility] Acute Care Lab [address] Lab (1st floor, no room number) [place] [address] * CT Abdomen Pelvis w Contrast [...] EXAM: CT ABDOMEN PELVIS W CONTRAST LOCATION: [facility] DATE: 02/25/2024 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 [...] EXAM: CT ABDOMEN PELVIS W CONTRAST LOCATION: [facility] DATE: 02/25/2024 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 [...] lytic changes involving the superior aspect of I1mflcxaoup body (series 3, image 137) with some [...] (02/25/2024 3:01 PM CDT) Upper GI Endoscopy [facility] Patient Name: Herminio Victor [...] ?Olympus Gastroscope, Model # [id number], Censitrac # ?[id number] was introduced through the mouth, and ?advanced [...] Note Initiated On: 02/25/2024 3:01 PM MRN: ?[id number] Procedure Date: ? 02/25/2024 3:01:34 PM Total [...] PA-C LAB - BLOOD ORDERABL ES LABORATORY [facility] Acute Care Lab [address] [facility] Lab (1st floor, no room number) [place] [address], [facility] * (ABNORMAL) INR (02/25/2024 9:28 AM CDT) INR 3.00(H) 0.85 - 1.15 02/25/2024 9:46 AM CDT LABORATORY Blood BLOOD SPECIMEN / Unknown Venipuncture / Unknown 02/25/2024 9:28 AM CDT 02/25/2024 9:32 AM CDT Georgia Perez DO LAB - BLOOD ORDER NADIA [facility] Acute Care Lab [address] Lab (1st floor, no room number) [place] [address] * Hepatitis B surface antigen (02/25/2024 6:45 AM CDT) Pathologist [facility] Hepatitis B Surface Antigen Nonreactive Nonreactive 02/25/2024 10:36 AM CDT LABORATORY Blood STRUCTURE OF LEFT UPPER LIMB / Unknown Venipuncture / Unknown 02/25/2024 6:45 AM CDT 02/25/2024 6:51 AM CDT Mann Brush DO LAB - BLOOD ORDERABL ES LABORATORY [facility] [employer] Core Lab [address] [facility], [address] [place] [address] * (ABNORMAL) Hemoglobin (02/25/2024 6:45 AM CDT) Hemoglobin 7.8(L) 13.3 - 17.7 g/dL 02/25/2024 7:29 AM CDT LABORATORY Blood STRUCTURE OF LEFT UPPER LIMB / Unknown Venipuncture / Unknown 02/25/2024 6:45 AM CDT 02/25/2024 6:51 AM CDT Gómez Blcakwood PA-C LAB - BLOOD ORDERABL ES [facility] Care Lab [address] Lab (1st floor, no room number) [place] [address], [facility] * (ABNORMAL) CBC with platelets (02/25/2024 6:45 [...] LAB - BLOOD ORDERABL ES RH LABORATORY [facility] Acute Care Lab [address] [facility] Lab (1st floor, no room number) [place] [address], [facility] * (ABNORMAL) Basic metabolic panel (02/25/2024 6:45 [...] - 107 mmol/L 02/25/2024 7:22 AM CDT LABORATORY Carbon Dioxide (CO2) 21(L) 22 - 29 mmol/L 02/25/2024 7:22 AM CDT LABORATORY Anion Gap 18(H) 7 [...] PA-C LAB - BLOOD ORDERABL ES LABORATORY [facility] Acute Care Lab [address] [facility] Lab (1st floor, no room number) [place] [address], [facility] * Transfuse red blood cells (unit) (02/25/2024 12:35 AM CDT) Mazin Srivastava MD BLOOD TRANSFUSION OR DERABLES * Transfuse red blood cells (unit), 1 Units (02/25/2024 12:35 AM CDT) Mazin Srivastava MD BLOOD TRANSFUSION OR DERABLES * Prepare red blood cells (unit) (02/24/2024 9:17 PM CDT) Blood Component Type Red Blood Cells RH BLOOD BANK Product Code [id number] RH BLOO D BANK Unit Status Transfused RH BLOO D BANK Unit Number [id number] RH B LOOD BANK CROSSMATCH Compatible RH BLOOD BANK CODING SYSTEM [id number] RH BLO OD BANK ISSUE DATE AND TIME [id number] RH BLOOD BANK UNIT ABO/RH O+ RH BLOOD BANK UNIT TYPE ISBT 5100 RH BL OOD BANK 02/24/2024 9:17 PM CDT Mazin Srivastava MD BLOOD BANK PRODUCT O RDERABLES Performing Organization Address City/[facility]/ZIP Co de Phone Number RH BLOOD BANK [address] [place] [address] * Transfuse red blood cells (unit) (02/24/2024 9:11 PM CDT) Mazin Srivastava MD BLOOD TRANSFUSION OR DERABLES * Transfuse red blood cells (unit), 1 Units (02/24/2024 9:11 PM CDT) Mazin Srivastava MD BLOOD TRANSFUSION OR DERABLES * Prepare red blood cells (unit) (02/24/2024 6:19 PM CDT) Blood Component Type Red Blood Cells RH BLOOD BANK Product Code T4160H42 RH BLOO D BANK Unit Status Transfused RH BLOO D BANK Unit Number [id number] RH B LOOD BANK CROSSMATCH Compatible RH BLOOD BANK CODING SYSTEM [id number] RH BLO OD BANK ISSUE DATE AND TIME [id number] RH BLOOD BANK UNIT ABO/RH O+ RH BLOOD BANK UNIT TYPE ISBT 5100 RH BL OOD BANK 02/24/2024 6:19 PM CDT Jae Noel MD BLOOD BANK PRODUCT O RDERABLES Performing Organization Address [facility] Co de Phone Number RH BLOOD BANK [address] [place] [address] * (ABNORMAL) Hemoglobin (02/24/2024 5:51 PM CDT) Hemoglobin 6.7(LL) 13.3 - 17.7 g/dL 02/24/2024 6:14 PM CDT RH LABORATORY Blood STRUCTURE OF LEFT UPPER LIMB / Unknown Venipuncture / Unknown 02/24/2024 5:51 PM CDT 02/24/2024 6:00 PM CDT Gómez Blackwood PA-C LAB - BLOOD ORDERABL ES LABORATORY [facility] Acute Care Lab [address] [facility] Lab (1st floor, no room number) [place] [address] * Transfuse red blood cells (unit) (02/24/2024 2:35 PM CDT) Jae Noel MD BLOOD TRANSFUSION OR DERABLES * Transfuse red blood cells (unit), 1 Units (02/24/2024 2:35 PM CDT) Jae Noel MD BLOOD TRANSFUSION OR DERABLES * Prepare red blood cells (unit) (02/24/2024 11:35 AM CDT) Blood Component Type Red Blood Cells RH BLOOD BANK Product Code [id number] RH BLOO D BANK Unit Status Transfused RH BLOO D BANK Unit Number [id number] RH B LOOD BANK CROSSMATCH Compatible RH BLOOD BANK CODING SYSTEM [id number] RH BLO OD BANK ISSUE DATE AND TIME [id number] RH BLOOD BANK UNIT ABO/RH O+ RH BLOOD BANK UNIT TYPE ISBT 5100 RH BL OOD BANK 02/24/2024 11:3 5 AM CDT Jae Noel MD BLOOD BANK PRODUCT O RDERABLES BLOOD BANK [address] [place] [address] * (ABNORMAL) Occult blood stool (02/24/2024 11:31 AM CDT) Occult Blood Positive(A ) Negative JOJO 02/24/2024 11:40 AM CDT RH LABORATORY Stool RECTAL CONTENTS / Unknown Non-blood Collection / Unknown 02/24/2024 11:31 AM CDT 02/24/2024 11:38 AM CDT Jae Noel MD LAB - STOOLS ORDERAB LES [facility] Acute Care Lab [address] [facility] Lab (1st floor, no room number) [place] [address], [facility] * CT Head w/o Contrast (02/24/2024 10:42 AM CDT) Anatomical Region Laterality Modality Head, SUBRAD CT NEURO, SUBRA D CT NEURO, UMP CT NEURO, RAD CT Computed Tomography Impressions 02/24/2024 11:11 AM CDT IMPRESSION: 1. No acute intracranial pathology. 2. Chronic small vessel ischemic disease and generalized cerebral volume loss. FLAKO ZUNIGA MD SYSTEM ID: ??[id number] Narrative 02/24/2024 11:11 AM CDT EXAM: CT HEAD W/O CONTRAST ??02/24/2024 10:42 AM HISTORY: ??Altered mental status, cocnern for ICH, on coumadin ?? COMPARISON: ??No prior similar studies TECHNIQUE: Using multidetector thin collimation helical acquisition technique, axial, coronal and sagittal CT images from the skull base to the vertex were obtained without intravenous contrast. Heater Tender (topogram) image(s) also obtained and reviewed. Dose [...] the vertex were obtained without intravenous contrast. Heater Tender (topogram) image(s) also obtained and reviewed. Dose [...] volume loss. FLAKO ZUNIGA MD SYSTEM ID: [id number] Jae Noel MD IMG CT ORDERABLES * [...] LAB - BEAKER POCT RH LABORATORY POC [facility] Care Lab [address] Lab (1st floor, no room number) [place] [address] * EKG 12-lead, tracing only (02/24/2024 10:12 AM CDT) Systolic Blood Pressure mmHg RADIOLOGY RESULTS Diastolic Blood Pressure mmHg RADIOLOGY RESULTS Ventricular Rate 77 BPM RAD IOLOGY RESULTS Atrial Rate 77 BPM RADIOLOG Y RESULTS VT Interval 210 ms RADIOLOG Y RESULTS QRS Duration 98 ms RADIOLO GY RESULTS QT 382 ms RADIOLOGY RESULTS QTc 432 ms RADIOLOGY RESULTS P [place] 49 degrees RADIOLOGY RESULTS R AXIS 6 degrees RADIOLOGY RESULTS T [place] 36 degrees RADIOLOGY RESULTS Interpretation ECG Sinus rhythm with 1st degree A-V block Otherwise normal ECG When compared with ECG of 16-DEC-2015 14:48, Criteria for Septal infarct are no longer Present Unconfirmed report - interpretation of this ECG is computer generated - see medical record for final interpretation Confirmed by - EMERGENCY ROOM, PHYSICIAN ([id number]), scientific publications editor YISSEL VELASQUEZ ([id number]) on 02/24/2024 10:54:14 AM RADIOLOGY RESULTS 02/24/2024 10:1 2 AM CDT 02/24/2024 10:54 AM CDT Jae Noel MD ECG ORDERABLES RADIOLOGY RESULTS * Adult Type and Screen (02/24/2024 10:07 AM CDT) ABO/RH(D) O POS 02/24/2024 10:08 AM CDT RH BLOOD BANK Antibody Screen Negative Negative 02/24/2024 10:08 AM CDT RH BLOOD BANK SPECIMEN EXPIRATION DATE [id number] 02/24/2024 10:08 AM CDT RH BLOOD BANK Blood STRUCTURE OF RIGHT UPPER LIMB / Unknown Venipuncture / Unknown 02/24/2024 10:07 AM CDT 02/24/2024 10:12 AM CDT Jae Noel MD LAB - BLOOD BANK SHANNON T ORDER RH BLOOD BANK [address] [place] [address], [facility] * Ammonia (02/24/2024 10:06 AM CDT) Ammonia 26 16 - 60 umol/L 02/24/2024 10:32 AM CDT RH LABORATORY Blood STRUCTURE OF RIGHT UPPER LIMB / Unknown Venipuncture / Unknown 02/24/2024 10:06 AM CDT 02/24/2024 10:13 AM CDT Jea Noel MD LAB - BLOOD ORDERABL ES RH LABORATORY [facility] Lab [address] Lab (1st floor, no room number) [place] [address], [facility] * (ABNORMAL) CBC [...] LAB - BLOOD ORDERABL ES RH LABORATORY [facility] [address] [facility] ([facility]st floor, no room number) [place] [address], [facility] * (ABNORMAL) INR (02/24/2024 9:58 AM CDT) INR 2.46(H) 0.85 - 1.15 02/24/2024 10:26 AM CDT RH LABORATORY Blood STRUCTURE OF RIGHT UPPER LIMB / Unknown Venipuncture / Unknown 02/24/2024 9:58 AM CDT 02/24/2024 10:11 AM CDT Jae Noel MD LAB - BLOOD ORDERABL ES LABORATORY [facility] Lab [address] [facility] Lab (1st floor, no room number) [place] [address], [facility] * (ABNORMAL) Comprehensive metabolic panel (02/24/2024 9:58 [...] MD LAB - BLOOD ORDERABL ES LABORATORY [facility] [address] Lab (1st floor, no room number) [place] [address], [facility] * Extra Purple Top Tube (02/24/2024 9:58 AM CDT) Pathologist [facility] Hold Specimen [facility] 02/24/2024 11:16 AM CDT RH LABORATORY Blood STRUCTURE OF RIGHT UPPER LIMB / Unknown Venipuncture / Unknown 02/24/2024 9:58 AM CDT 02/24/2024 10:11 AM CDT Jae Noel MD LAB - BLOOD ORDERABL ES Performing Organization Address City/[facility]/ZIP Co de Phone Number [facility] [address] Lab (1st floor, no room number) [place] [phone] [place] [address] * Extra Green Top ([place] Heparin) Tube (02/24/2024 9:58 AM CDT) Hold Specimen [facility] 02/24/2024 11:16 AM CDT RH LABORATORY Blood STRUCTURE OF RIGHT UPPER LIMB / Unknown Venipuncture / Unknown 02/24/2024 9:58 AM CDT 02/24/2024 10:11 AM CDT Jae Noel MD LAB - BLOOD ORDERABL ES Performing Organization Address [facility]/ZIP Co de Phone Number [facility] [address] Lab (1st floor, no room number) [address] [place] [address] * Extra Blue Top Tube (02/24/2024 9:58 AM CDT) Hold Specimen [facility] 02/24/2024 11:16 AM CDT RH LABORATORY Blood STRUCTURE OF RIGHT UPPER LIMB / Unknown Venipuncture / Unknown 02/24/2024 9:58 AM CDT 02/24/2024 10:11 AM CDT Jae Noel MD LAB - BLOOD ORDERABL ES Performing Organization Address City/[facility]/ZIP Co de Phone Number [facility] Lab [address] Lab (1st floor, no room number) [place] [phone] documented in this encounter Visit Diagnoses Diagnosis [...] on 02/25/24 at 1421, For 1 dose, [place] throat with 1 spray 5 minutes prior [...] On 02/25/24 at 1030, For 1 dose $Given 02/25/2024 [...] INSTRUCTIONS, Starting on Tue02/26/24 at 0931, Until 02/26/24 at 1731, *Note [...] on 02/25/24 at 1421, For 1 dose, [place] throat with 1 spray 5 minutes prior [...] stools. documented in this encounter Care Teams Manufacturing Accountant Relationship Specialty Start Date End Date Preet Huff PCP - General 06/24/11 documented as of this encounter
--- OUTSIDE RECORDS SUMMARY | 2024-06-04 11:08 | XMS_ITS | Encounter Summary ---
Author Organization [place] Address [address] [facility] [place] [address] Care Team Providers Care Long Term Care Pharmacist Name Role Phone [place]ug[place] Preet Hans Primary Care Provider [phone] Encounter Details Date Type Department Care Team (Late Contact Info) Description 02/08/2022 External Order Results [facility] [address] [place] [address] Outside, Provider Social History Tobacco Use Types Packs/Day Years Used Date Smoking Tobacco: Never Smokeless Tobacco: Never Alcohol Use Standard Drinks/Week Comments No 0 (1 standard drink = 0.6 oz pur e alcohol) PHQ-2 Answer Date Recorded PHQ-2 Score 0 10/18/2018 Sex and Gender Information Value Date Recorded Sex Assigned at Not on file Gender Identity Male 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 No / Unsure 02/11/2022 8:53 AM CDT documented as of this encounter Plan of Treatment Upcoming Encounters Date Type Department Care Team (Late Contact Info) Description 07/05/2024 1:15 PM CDT Office Visit [address] [address] Lizandro Barron MD [address] [id number] documented as of this encounter Procedures Procedure [...] Eugene Rodriguez on 02/15/2022. Provider Outside LABORATORY MARIA T PFT NON-INTERFACED (ONBASE SCANS) documented in this encounter Visit Diagnoses Not on filedocumented in this encounter Care Teams Long Term Care Pharmacist Relationship Specialty Start Date End Date Preet Huff PCP - General 06/24/11 documented as of this encounter
--- OUTSIDE RECORDS SUMMARY | 2024-06-04 11:08 | XMS_ITS | Encounter Summary ---
Author Organization [place] Address [address] [facility] [address] Care Team Providers Care Smeller Name Role Phone Preet Huff Hans Primary Care Provider [phone] Jaxon Saravia MD Unavailable [phone] Encounter Details Date Type Department Care Team (Late Contact Info) Description 10/20/2011 Hospital PHYS STANDARD [address] [phone] Wojciech Holman MD [facility] [address] [place] [id number] ESRD (end stage renal disease) on dialysis (H); Hyperkalemia Social History Tobacco Use Types Packs/Day Years Used Date Smoking Tobacco: Never Smokeless Tobacco: Never Alcohol Use Standard Drinks/Week Comments No 0 (1 standard drink = 0.6 oz pur e alcohol) Sex and Gender Information Value Date Recorded Sex Assigned at Not on file Gender Identity Male 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 Sexual Orientation Not on file documented as of this encounter Plan of Treatment Upcoming Encounters Date Type Department Care Team (Late Contact Info) Description 07/05/2024 1:15 PM CDT Office Visit [address] [phone] Lizandro Barron MD [address] [place] [address] documented as of this encounter Visit Diagnoses Diagnosis ESRD (end stage renal disease) on dialysis (H) End stage renal disease Hyperkalemia Hyperpotassemia documented in this encounter Care Teams Smeller Relationship Specialty Start Date End Date Preet Huff PCP - General 06/24/11 Jaxon Saravia MD [address] [place] [address] Assigned Heart and Vascular Provider 08/01/20 12/06/20 documented as of this encounter
--- OUTSIDE RECORDS SUMMARY | 2024-06-04 11:08 | XMS_ITS | Encounter Summary ---
Author Organization [place] Address [address] [facility] [place] [address] Care Team Providers Care Oil Analyst Name Role Phone Preet Huff Primary Care Provider [phone] Jaxon Saravia MD Unavailable [phone] Encounter Details Date Type Department Care Team (Late Contact Info) Description 05/07/2013 Orders Only [facility] Interventional Radiology 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 Sexual Orientation Not on file documented as of this encounter Plan of Treatment Upcoming Encounters Date Type Department Care Team (Late Contact Info) Description 07/05/2024 1:15 PM CDT Office Visit [address] [address] Lizandro Barron MD [address] [place] [address] documented as of this encounter Visit Diagnoses Diagnosis Clotted dialysis access (H24)- Primary Mechanical complication of other vascular device, implant, and graft documented in this encounter Care Teams Oil Analyst Relationship Specialty Start Date End Date Preet Huff PCP - General 06/24/11 Jaxon Saravia MD [address] [place] [address] Assigned Heart and Vascular Provider 08/01/20 12/06/20 documented as of this encounter
--- OUTSIDE RECORDS SUMMARY | 2024-06-04 11:09 | XMS_ITS ---
Author Organization [place] Address [address] [place] [address] Care Team Providers Care Certified Nurse Practitioner Name Role Phone Preet Huff Primary Care Provider [phone] Transitional Care Management Status:Closed (Closed) Start date:03/13/2024 Enrollment date:03/13/2024 End date:2024 Close reason:Goals met Continued Care and Services Coordination
--- OUTSIDE RECORDS SUMMARY | 2024-06-04 11:09 | XMS_ITS ---
Author Organization [place] Address [address] [place] [address] Care Team Providers Care Complex Care Nurse Practitioner Name Role Phone Preet Huff Primary Care Provider [phone] Transitional Care Management Status:Enrolled (Active) Start date:05/31/2024 Enrollment date:06/01/2024 Continued Care and Services Coordination
== END 2024-02-23 23:59 | disposition home or self-care (01) ==
LOC: AMB 06-04 10:56
PROVIDERS: PCP Internal Medicine Nephrology; Visit Provider Emergency Medicine Emergency Medical Services
DX: R41.89 Other symptoms and signs involving cognitive functions and awareness (principal); D64.9 Anemia, unspecified
CPT/HCPCS: A0425; A0428

== ENCOUNTER 2024-02-24 08:46 | Outpatient (CLI) | payer MEDICARE, MEDICAID, SELFPAY ==
--- OUTSIDE RECORDS SUMMARY | 2024-02-29 10:24 | XMS_ITS | Clinical Summary ---
Author Organization [facility] Address [address] [place] [address] Phone Care Team Providers Care Natural Gas Plant Supervisor Name Role Phone Preet Huff MD Primary Care Provider [phone] Medications Medication Sig Dispensed Refills Start Date End Date Status cholecalciferol (VITAMIN D-3) 1000 units tablet 1 tab qd 04/02/2015 Active B Complex Vitamins (VITAMIN B COMPLEX) tablet 1 tab po daily 12/08/2012 Activ e bisacodyl (DULCOLAX) 5 MG EC tablet 2 tabs po bid 04/02/2015 Active B Amuchso-U-Oixys Acid (RENAL) 1 MG capsule 1 cap [...] Type Department Care Team Description 02/20/2024 Refill [facility] [address] [place] [address] María Elena Styles PA 02/08/2024 Orders Only [facility] [address] [place] [address] María Elena Styles PA from Last 3 [...] Influenza Vaccine (Season Ended) 2024 Care Teams Natural Gas Plant Supervisor Relationship Specialty Start Date End Date Preet Huff MD [address] [place] [phone] PCP - General 10/31/19
--- OUTSIDE RECORDS SUMMARY | 2024-02-29 10:24 | XMS_ITS | Encounter Summary ---
Author Organization [facility] Address [address] [place] [address] Phone Care Team Providers Care Clean In Places Operator Name Role Phone Preet Huff MD Primary Care Provider [phone] Encounter Details Date Type Department Care Team (Late st Contact Info) Description 02/08/2024 Orders Only [facility] [address] [place], [place] [address] María Elena Styles PA [address] [place], [place] [address] Social History Tobacco Use Types Packs/Day Years Used Date Smoking Tobacco: Never Assessed Sex and Gender Information Value Date Recorded Sex Assigned at Not on file Gender Identity Not on file Sexual Orientation Not on file documented as of this encounter Plan of Treatment Not on file documented as of this encounter Visit Diagnoses Not on filedocumented in this encounter Care Teams Clean In Places Operator Relationship Specialty Start Date End Date Preet Huff MD [address] [place] [phone] PCP - General 10/31/19 documented as of this encounter
--- OUTSIDE RECORDS SUMMARY | 2024-02-29 10:24 | XMS_ITS | Encounter Summary ---
Author Organization [facility] Address [address] [place] [address] Phone Care Team Providers Care Children'S Minister Name Role Phone Preet Huff MD Primary Care Provider [phone] Reason for Visit * Reason Comments Med Refill Encounter Details Date Type Department Care Team (Late st Contact Info) Description 02/20/2024 Refill [facility] [address] [facility] [address] [place], [place] [address] María Elena Styles PA [address] [place] [address] Social History Tobacco Use Types Packs/Day Years Used Date Smoking Tobacco: Never Assessed Sex and Gender Information Value Date Recorded Sex Assigned at Not on file Gender Identity Not on file Sexual Orientation Not on file documented as of this encounter Plan of Treatment Not on file documented as of this encounter Visit Diagnoses Not on filedocumented in this encounter Care Teams Children'S Minister Relationship Specialty Start Date End Date Preet Huff MD [address] [place] [phone] PCP - General 10/31/19 documented as of this encounter
--- OUTSIDE RECORDS SUMMARY | 2024-02-29 10:25 | XMS_ITS | Encounter Summary ---
Author Organization [facility] Address [address] [place] [address] Phone Care Team Providers Care Nurse Paralegal Name Role Phone Preet Huff MD Primary Care Provider [phone] Reason for Visit * Reason Comments Med Refill Encounter Details Date Type Department Care Team (Late st Contact Info) Description 03/23/2021 Refill [facility] [address] [facility] [address] [place], [place] [address] María Elena Styles PA [address] [facility] [address] [facility] [address] [place] [address] Social History Tobacco Use Types Packs/Day Years [...] on filedocumented in this encounter Care Teams Nurse Paralegal Relationship Specialty Start Date End Date Preet Huff MD [address] [place] [phone] PCP - General 10/31/19 documented as of this encounter
--- OUTSIDE RECORDS SUMMARY | 2024-02-29 10:25 | XMS_ITS | Referral Summary ---
Author Organization [place] Address [address] [place] [address] Care Team Providers Care Federal Agent Name Role Phone Preet Huff Hans Primary Care Provider [phone] Encounters Date Type Department Care Team Description 02/24/2024 9:38 AM CDT - 02/26/2024 3:30 PM CDT Hospital Encounter [place] [address] Medical Surgical [address] [place] [address] Jae Noel MD Blomquist, Katherine, DO Anemia, unspecified type; ESRD on dialysis (H); Altered mental status, unspecified altered mental status type; Gastrointestinal hemorrhage, unspecified gastrointestinal hemorrhage type Discharge Disposition: Home or Self Care 02/25/2024 2:50 PM CDT - 02/25/2024 3:25 PM CDT Surgery [facility] [place] [address] [place] [address] Momo Hercules MD Esophagoscopy, gastroscopy, duodenoscopy (EGD), [...] file Gender Identity Male 12/05/2017 10:39 AM BARREL FINISHER Sexual Orientation Not on file Last Filed [...] on file Medical Devices Implanted Type Area Curtains And Draperies Salesperson Device Identifier Shelf Expiration Date Model / Serial / Lot Graft Patch Vasc Xenosure Biologic 0.8x08cm 0.8p8 Implanted:Qty: 1 on 12/16/2017 by Jaxon Saravia MD at [facility] Bone/Tis rocco/Biol ogic Left: Iliac/Fem orals LEMAITRE VASCULAR IN 06/06/2023 0.8P8 / / [id number] Graft Pericardium 8x0.8cm Vascu-Guard Implanted:Qty: 1 on 10/20/2011 at [facility] Right: Arm [employer] 01/16/2016 [id number] / / [id number] Femoral Popliteal Artery Implanted:Qty: 1 on 05/03/2012 by Jaxon Saravia MD at [facility] Right: Groin 12/07/2021 [id number] / [id number] / Description:CADAVER FEMORAL ARTERY RINSED IN A AND B SOLUTION: A SOLUTION LOT #[id number] EXPIRATION DATE 01/09/2014 B SOLUTION LOT #[id number] EXPIRATION DATE 11/15/2013 Graft Propaten Taper [id number] Implanted:Qty: 1 on 08/09/2012 by Jaxon Saravia MD at [facility] Right: Leg 10/24/2015 [id number] / / [id number] Graft Propaten Taper [id number] Implanted:Qty: 1 on 06/20/2013 by Jaxon Saravia MD at [facility] Left: Groin [employer] 02/07/2017 [id number] / / [id number] Graft Pericardium 8x0.8cm Vascu-Guard Implanted:Qty: 1 on 05/08/2014 by Jaxon Saravia MD at [facility] Left: Leg [employer] 11/26/2018 [id number] / PN# [id number] / [id number] Procol Vascular Bioprosthesis Implanted:Qty: 1 on 07/02/2015 by Jaxon Saravia MD at [facility] Left: Groin 12/16/2018 [id number] -[id number] / [id number] / Procol Vascular Bioprosthesis Implanted:Qty: 1 on 08/13/2015 by Jaxon Saravia MD at [facility] Left: Groin 12/16/2018 [id number] -[id number] / [id number] -[id number] / Graft Vasc Bioprosthesis Procol [id number] Implanted:Qty: 1 on 03/05/2016 by Jaxon Saravia MD at [facility] Left: Leg LEMAITRE VASCULAR IN 02/03/2019 [id number] -[id number] / [id number] -[id number] / Procedures Procedure [...] CDT LIPID PROFILE STAT 12/07/2017 12:34 PM BARREL FINISHER 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, Room [address] [place] [address] * (ABNORMAL) INR (02/26/2024 9:49 AM CDT) Only the most recent of3 resultswithin the time period is included. INR 1.27(H) 0.85 - 1.15 02/26/2024 10:13 AM CDT LABORATORY Blood STRUCTURE OF RIGHT HAND / Unknown Venipuncture / Unknown 02/26/2024 9:49 AM CDT 02/26/2024 9:58 AM CDT Georgia Perez DO LAB - BLOOD ORDER NADIA Performing Organization Address City/[facility]/ZIP Co de Phone Number LABORATORY [facility] Lab [address] Lab (1st floor, no room number) [place] [address] * (ABNORMAL) Renal panel (02/26/2024 6:10 [...] Perez DO LAB - BLOOD ORDER NADIA [facility] [address] Lab (1st floor, no room number) [place] [address], [facility] * (ABNORMAL) Iron and iron binding capacity [...] LAB - BLOOD ORDERABL ES RH LABORATORY [facility] [address] Lab (1st floor, no room number) [place] [address] * (ABNORMAL) Ferritin (02/26/2024 6:10 AM CDT) Ferritin 1,463(H) 31 - 409 ng/mL 02/26/2024 12:37 PM CDT [facility] LABORATORY Blood STRUCTURE OF RIGHT HAND / Unknown Venipuncture / Unknown 02/26/2024 6:10 AM CDT 02/26/2024 6:20 AM CDT Momo Hercules MD LAB - BLOOD ORDERABL ES [facility] [address] [facility], [address] [place] [address] * (ABNORMAL) CBC with platelets (02/26/2024 [...] Ana DO LAB - BLOOD ORDER NADIA [facility] [address] Lab (1st floor, no room number) [place] [address], [facility] * CT Abdomen Pelvis w Contrast (02/25/2024 [...] EXAM: CT ABDOMEN PELVIS W CONTRAST LOCATION: [facility] DATE: 02/25/2024 INDICATION: Varices on [...] EXAM: CT ABDOMEN PELVIS W CONTRAST LOCATION: [facility] DATE: 02/25/2024 INDICATION: Varices on [...] lytic changes involving the superior aspect of [id number] body (series 3, image 137) with some [...] (02/25/2024 3:01 PM CDT) Upper GI Endoscopy [facility] Patient Name: Herminio Victor ? Procedure Date: [...] ?Olympus Gastroscope, Model # [id number], Censitrac # ?[id number] was introduced through the mouth, and ?advanced [...] Note Initiated On: 02/25/2024 3:01 PM MRN: ?[id number] Procedure Date: ? 02/25/2024 3:01:34 PM Total [...] PA-C LAB - BLOOD ORDERABL ES LABORATORY [facility] [address] [facility] Lab (1st floor, no room number) [place] [address], [facility] * Hepatitis B surface antigen (02/25/2024 6:45 AM CDT) Hepatitis B Surface Antigen Nonreactive Nonreactive 02/25/2024 10:36 AM CDT U LABORATORY Blood STRUCTURE OF LEFT UPPER LIMB / Unknown Venipuncture / Unknown 02/25/2024 6:45 AM CDT 02/25/2024 6:51 AM CDT Mann Brush DO LAB - BLOOD ORDERABL ES [facility] [address] [facility], Room [address] [place] [address] * (ABNORMAL) Basic metabolic panel (02/25/2024 6:45 AM CDT) [facility] Sodium 126(L) 135 - 145 mmol/L 02/25/2024 [...] PA-C LAB - BLOOD ORDERABL ES LABORATORY [facility] [address] [facility] Lab (1st floor, no room number) [place] [address] * Transfuse red blood cells (unit) (02/25/2024 12:35 AM CDT) Only the most recent of3 resultswithin the time period is included. Mazin Srivastava MD BLOOD TRANSFUSION OR DERABLES * Prepare red blood cells (unit) (02/24/2024 9:17 PM CDT) Only the most recent of3 resultswithin the time period is included. Blood Component Type Red Blood Cells RH BLOOD BANK Product Code [id number] RH BLOO D BANK Unit Status Transfused RH BLOO D BANK Unit Number [id number] RH B LOOD BANK CROSSMATCH Compatible RH BLOOD BANK CODING SYSTEM [id number] RH BLO OD BANK ISSUE DATE AND TIME [id number] RH BLOOD BANK UNIT ABO/RH O+ RH BLOOD BANK UNIT TYPE ISBT 5100 RH BL OOD BANK 02/24/2024 9:17 PM CDT Mazin Srivastava MD BLOOD BANK PRODUCT O RDERABLES Performing Organization Address [facility]/ZIP Co de Phone Number RH BLOOD BANK [address] [place] [address] * (ABNORMAL) Occult blood stool (02/24/2024 11:31 AM CDT) Occult Blood Positive(A ) Negative JOJO 02/24/2024 11:40 AM CDT RH LABORATORY Stool RECTAL CONTENTS / Unknown Non-blood Collection / Unknown 02/24/2024 11:31 AM CDT 02/24/2024 11:38 AM CDT Jae Noel MD LAB - STOOLS ORDERAB LES [facility] Acute Care Lab [address] [facility] Lab (1st floor, no room number) [place] [address] * CT Head w/o Contrast (02/24/2024 10:42 AM CDT) Anatomical Region Laterality Modality Head, SUBRAD CT NEURO, SUBRA D CT NEURO, UMP CT NEURO, RAD CT Computed Tomography Impressions 02/24/2024 11:11 AM CDT IMPRESSION: 1. No acute intracranial pathology. 2. Chronic small vessel ischemic disease and generalized cerebral volume loss. FLAKO ZUNIGA MD SYSTEM ID: ??[id number] Narrative 02/24/2024 11:11 AM CDT EXAM: CT HEAD W/O CONTRAST ??02/24/2024 10:42 AM HISTORY: ??Altered mental status, cocnern for ICH, on coumadin ?? COMPARISON: ??No prior similar studies TECHNIQUE: Using multidetector thin collimation helical acquisition technique, axial, coronal and sagittal CT images from the skull base to the vertex were obtained without intravenous contrast. Director Of Psychiatry (topogram) image(s) also obtained and reviewed. Dose [...] the vertex were obtained without intravenous contrast. Director Of Psychiatry (topogram) image(s) also obtained and reviewed. Dose [...] volume loss. FLAKO ZUNIGA MD SYSTEM ID: [id number] Jae Noel MD IMG CT ORDERABLES * (ABNORMAL) iStat Gases (lactate) venous, POCT (02/24/2024 10:15 AM CDT) [facility] Lactic Acid POCT 0.7 <=2.0 mmol/L 02/24/2024 [...] LAB - AKER POCT RH LABORATORY POC [facility] [address] Lab (1st floor, no room number) [place] [address], [facility] * EKG 12-lead, tracing only (02/24/2024 10:12 AM CDT) Systolic Blood Pressure mmHg RADIOLOGY RESULTS Diastolic Blood Pressure mmHg RADIOLOGY RESULTS Ventricular Rate 77 BPM RAD IOLOGY RESULTS Atrial Rate 77 BPM RADIOLOG Y RESULTS GA Interval 210 ms RADIOLOG Y RESULTS QRS Duration 98 ms RADIOLO GY RESULTS QT 382 ms RADIOLOGY RESULTS QTc 432 ms RADIOLOGY RESULTS P [place] 49 degrees RADIOLOGY RESULTS R AXIS 6 degrees RADIOLOGY RESULTS T [place] 36 degrees RADIOLOGY RESULTS Interpretation ECG Sinus rhythm with 1st degree A-V block Otherwise normal ECG When compared with ECG of 16-DEC-2015 14:48, Criteria for Septal infarct are no longer Present Unconfirmed report - interpretation of this ECG is computer generated - see medical record for final interpretation Confirmed by - EMERGENCY ROOM, PHYSICIAN ([id number]), clinical editor YISSEL VELASQUEZ ([id number]) on 02/24/2024 10:54:14 AM RADIOLOGY RESULTS 02/24/2024 10:1 2 AM CDT 02/24/2024 10:54 AM CDT Jae Noel MD ECG ORDERABLES RADIOLOGY RESULTS * Adult Type and Screen (02/24/2024 10:07 AM CDT) ABO/RH(D) O POS 02/24/2024 10:08 AM CDT RH BLOOD BANK Antibody Screen Negative Negative 02/24/2024 10:08 AM CDT RH BLOOD BANK SPECIMEN EXPIRATION DATE [id number] 02/24/2024 10:08 AM CDT RH BLOOD BANK Blood STRUCTURE OF RIGHT UPPER LIMB / Unknown Venipuncture / Unknown 02/24/2024 10:07 AM CDT 02/24/2024 10:12 AM CDT Jae Noel MD LAB - BLOOD BANK SHANNON T ORDER RH BLOOD BANK [address] [place] [address], [facility] * Ammonia (02/24/2024 10:06 AM CDT) Ammonia 26 16 - 60 umol/L 02/24/2024 10:32 AM CDT RH LABORATORY Blood STRUCTURE OF RIGHT UPPER LIMB / Unknown Venipuncture / Unknown 02/24/2024 10:06 AM CDT 02/24/2024 10:13 AM CDT Jae Noel MD LAB - BLOOD ORDERABL ES [facility] [address] Lab (1st floor, no room number) [place] [address] * Extra Purple Top Tube (02/24/2024 9:58 AM CDT) Hold Specimen [facility] 02/24/2024 11:16 AM CDT RH LABORATORY Blood STRUCTURE OF RIGHT UPPER LIMB / Unknown Venipuncture / Unknown 02/24/2024 9:58 AM CDT 02/24/2024 10:11 AM CDT Jae Noel MD LAB - BLOOD ORDERABL ES Performing Organization Address City/[facility]/ZIP Co de Phone Number [facility] [address] Lab (1st floor, no room number) [place] [address], [facility] * Extra Green Top ([place] Heparin) Tube (02/24/2024 9:58 AM CDT) Hold Specimen [facility] 02/24/2024 11:16 AM CDT RH LABORATORY Blood STRUCTURE OF RIGHT UPPER LIMB / Unknown Venipuncture / Unknown 02/24/2024 9:58 AM CDT 02/24/2024 10:11 AM CDT Jae Noel MD LAB - BLOOD ORDERABL ES [facility] [address] Lab (1st floor, no room number) [place] [address], [facility] * Extra Blue Top Tube (02/24/2024 9:58 AM CDT) Hold Specimen [facility] 02/24/2024 11:16 AM CDT RH LABORATORY Blood STRUCTURE OF RIGHT UPPER LIMB / Unknown Venipuncture / Unknown 02/24/2024 9:58 AM CDT 02/24/2024 10:11 AM CDT Jae Noel MD LAB - BLOOD ORDERABL ES RH LABORATORY [facility] Lab [address] Lab (1st floor, no room number) [place] [address], [facility] * (ABNORMAL) CBC with platelets and differential [...] MD LAB - BLOOD ORDERABL ES LABORATORY [facility] Lab [address] [facility] Lab (1st floor, no room number) [place] [address], [facility] * (ABNORMAL) Comprehensive metabolic panel (02/24/2024 9:58 [...] LAB - BLOOD ORDERABL ES RH LABORATORY [facility] [address] Lab (1st floor, no room number) [place] [address] * Hepatitis C (HIM External Result) (01/04/2022 12:00 PM CDT) Hep C HIM See Scanned Document EXTERNAL LAB Comment:Nonreactive 01/04/2022 12:0 0 PM CDT Narrative EXTERNAL LAB - 01/04/2022 12:00 PM CDT LAB RESULT [facility] [address] [place] [address] Provider Outside LAB - HIM EXTERNAL R ESULT EXTERNAL LAB External Lab * (ABNORMAL) Lipid panel (12/07/2017 12:34 PM BARREL FINISHER) Cholesterol 115 <200 mg/dL 12/07/2017 1:27 PM [facility] Triglycerides 84 <150 mg/dL 12/07/2017 1:27 PM [facility] HDL Cholesterol 37(L) >39 mg/dL 8 1:27 PM [facility] LDL Cholesterol Calculated 61 <100 mg/dL 12/07/2017 1:27 PM [facility] Comment:Desirable: <100 mg/d l Non HDL Cholesterol 78 <130 mg/dL 12/07/2017 1:27 PM [facility] Blood specimen (specimen) 12/07/2017 12:34 PM BARREL FINISHER 12/07/2017 12:58 PM BARREL FINISHER Michele Fuentes MD LAB - BLOOD ORD ERABLES [facility] [address] [address], [facility] [phone] * Colonoscopy - HIM Scan (09/24/2013) Narrative Suad Taylor - 09/24/2013 [facility] Progress Note Provider Outside PROCEDURES from Last 3 Months or Most Recently Relevant to Health Maintenance Advance Directives For more information, please contact: [phone] * Full Code (Latest Code Status on [...] 7:33 AM 12/16/2017 2:03 PM Care Teams Federal Agent Relationship Specialty Start Date End Date Preet Huff PCP - General 06/24/11
--- OUTSIDE RECORDS SUMMARY | 2024-02-29 10:25 | XMS_ITS | Clinical Summary ---
Author Organization [place] Address [address] [place] [address] Care Team Providers Care Fireworks Inspector Name Role Phone Preet Huff Primary Care Provider [phone] Allergies Active Allergy Reactions Criticality Noted Date [...] CDT - 02/25/2024 3:25 PM CDT Surgery [facility] [address] [place] [address] Momo Hercules MD Esophagoscopy, gastroscopy, duodenoscopy (EGD), combined 02/24/2024 9:38 AM CDT - 02/26/2024 3:30 PM CDT Hospital Encounter [facility] 3 Medical Surgical [address] [place] [address] Jae Noel MD Blomquist, Katherine, Anemia, unspecified [...] file Gender Identity Male 12/05/2017 10:39 AM PURCHASING CLERK Sexual Orientation Not on file Last Filed [...] this topic Medical Devices Implanted Type Area Sales Designer Device Identifier Shelf Expiration Date Model / Serial / Lot Graft Patch Vasc Xenosure Biologic 0.8x08cm 0.8p8 Implanted:Qty: 1 on 12/16/2017 by Jaxon Saravia MD at [facility] Bone/Tis rocco/Biol ogic Left: Iliac/Fem orals LEMAITRE VASCULAR IN 06/06/2023 0.8P8 / / [id number] Graft Pericardium 8x0.8cm Vascu-Guard Implanted:Qty: 1 on 10/20/2011 at [facility] Right: Arm [employer] 01/16/2016 [id number] / / [id number] Femoral Popliteal Artery Implanted:Qty: 1 on 05/03/2012 by Jaxon Saravia MD at [facility] Right: Groin 12/07/2021 [id number] / [id number] / Description:CADAVER FEMORAL ARTERY RINSED IN A AND B SOLUTION: A SOLUTION LOT #[id number] EXPIRATION DATE 01/09/2014 B SOLUTION LOT #[id number] EXPIRATION DATE 11/15/2013 Graft Propaten Taper 4-7coe10wf [id number] Implanted:Qty: 1 on 08/09/2012 by Jaxon Saravia MD at [facility] Right: Leg 10/24/2015 [id number] / / [id number] Graft Propaten Taper 4-2xid23gi [id number] Implanted:Qty: 1 on 06/20/2013 by Jaxno Saravia MD at [facility] Left: Groin [employer] 02/07/2017 [id number] / / [id number] Graft Pericardium 8x0.8cm Vascu-Guard Implanted:Qty: 1 on 05/08/2014 by Jaxon Saravia MD at [facility] Left: Leg [employer] 11/26/2018 [id number] / PN# [id number] / [id number] Procol Vascular Bioprosthesis Implanted:Qty: 1 on 07/02/2015 by Jaxon Saravia MD at [facility] Left: Groin 12/16/2018 [id number] -[id number] / [id number] / Procol Vascular Bioprosthesis Implanted:Qty: 1 on 08/13/2015 by Jaxon Saravia MD at [facility] Left: Groin 12/16/2018 [id number] -[id number] / [id number] / Graft Vasc Bioprosthesis Procol [id number] Implanted:Qty: 1 on 03/05/2016 by Jaxon Saravia MD at [facility] Left: Leg LEMAITRE VASCULAR IN 02/03/2019 [id number] -[id number] / [id number] / Procedures Procedure [...] CDT LIPID PROFILE STAT 12/07/2017 12:34 PM PURCHASING CLERK 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 * (ABNORMAL) INR (02/26/2024 9:49 AM CDT) Only the most recent of3 resultswithin the time period is included. INR 1.27(H) 0.85 - 1.15 02/26/2024 10:13 AM CDT LABORATORY Blood STRUCTURE OF RIGHT HAND / Unknown Venipuncture / Unknown 02/26/2024 9:49 AM CDT 02/26/2024 9:58 AM CDT Georgia Perez DO LAB - BLOOD ORDER NADIA LABORATORY [facility] Acute Care Lab [address] Lab (1st floor, no room number) [place] [address] * (ABNORMAL) Renal panel (02/26/2024 6:10 [...] DO LAB - BLOOD ORDER NADIA LABORATORY [facility] Acute Care Lab [address] Lab (1st floor, no room number) [place] [address], [facility] * (ABNORMAL) Iron and iron binding capacity (02/26/2024 6:10 AM CDT) [facility] Iron 38(L) 61 - 157 ug/dL [...] LAB - BLOOD ORDERABL ES RH LABORATORY [facility] Acute Care Lab [address] Lab (1st floor, no room number) [place] [address] * (ABNORMAL) Ferritin (02/26/2024 6:10 AM CDT) Ferritin 1,463(H) 31 - 409 ng/mL 02/26/2024 12:37 PM CDT UU LABORATORY Blood STRUCTURE OF RIGHT HAND / Unknown Venipuncture / Unknown 02/26/2024 6:10 AM CDT 02/26/2024 6:20 AM CDT Momo Hercules MD LAB - BLOOD ORDERABL ES [facility]U LABORATORY [facility] [place] [facility] Lab [address] [facility], [address] [place] 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 [...] lytic changes involving the superior aspect of A7etsghltyo body (series 3, image 137) with some [...] (02/25/2024 3:01 PM CDT) Upper GI Endoscopy [facility] Patient Name: Herminio Victor ? Procedure [...] ?Olympus Gastroscope, Model # [id number], Censitrac # [id number] was introduced through the mouth, and ?advanced [...] Note Initiated On: 02/25/2024 3:01 PM MRN: ?[id number] Procedure Date: ? 02/25/2024 3:01:34 PM Total [...] LAB - BLOOD ORDERABL ES RH LABORATORY [facility] Acute Care Lab [address] Lab (1st floor, no room number) [place] [address] * Hepatitis B surface antigen (02/25/2024 6:45 AM CDT) Hepatitis B Surface Antigen Nonreactive Nonreactive 02/25/2024 10:36 AM CDT UU LABORATORY Blood STRUCTURE OF LEFT UPPER LIMB / Unknown Venipuncture / Unknown 02/25/2024 6:45 AM CDT 02/25/2024 6:51 AM CDT Mann Brush DO LAB - BLOOD ORDERABL ES UU LABORATORY [facility] [place] [facility] Lab [address] [facility], Room [address] [place] [address] * (ABNORMAL) Basic metabolic panel (02/25/2024 [...] PA-C LAB - BLOOD ORDERABL ES LABORATORY [facility] Acute Care Lab [address] [facility] Lab (1st floor, no room number) [place] [address] * Transfuse red blood cells (unit) (02/25/2024 12:35 AM CDT) Only the most recent of3 resultswithin the time period is included. Mazin Srivastava MD BLOOD TRANSFUSION OR DERABLES * Prepare red blood cells (unit) (02/24/2024 9:17 PM CDT) Only the most recent of3 resultswithin the time period is included. Blood Component Type Red Blood Cells RH BLOOD BANK Product Code [id number] RH BLOO D BANK Unit Status Transfused RH BLOO D BANK Unit Number [id number] RH B LOOD BANK CROSSMATCH Compatible RH BLOOD BANK CODING SYSTEM [id number] RH BLO OD BANK ISSUE DATE AND TIME [id number] RH BLOOD BANK UNIT ABO/RH O+ RH BLOOD BANK UNIT TYPE ISBT 5100 RH BL OOD BANK 02/24/2024 9:17 PM CDT Mazin Srivastava MD BLOOD BANK PRODUCT O RDERABLES BLOOD BANK [address] [place] [address] * (ABNORMAL) Occult blood stool (02/24/2024 11:31 AM CDT) Occult Blood Positive(A ) Negative JOJO 02/24/2024 11:40 AM CDT LABORATORY Stool RECTAL CONTENTS / Unknown Non-blood Collection / Unknown 02/24/2024 11:31 AM CDT 02/24/2024 11:38 AM CDT Jae Noel MD LAB - STOOLS ORDERAB LES [facility] Acute Care Lab [address] Lab (1st floor, no room number) [place] [address] * CT Head w/o Contrast (02/24/2024 10:42 AM CDT) Anatomical Region Laterality Modality Head, SUBRAD CT NEURO, SUBRA D CT NEURO, UMP CT NEURO, RAD CT Computed Tomography Impressions 02/24/2024 11:11 AM CDT IMPRESSION: 1. No acute intracranial pathology. 2. Chronic small vessel ischemic disease and generalized cerebral volume loss. FLAKO ZUNIGA MD SYSTEM ID: ??[id number] Narrative 02/24/2024 11:11 AM CDT EXAM: CT HEAD W/O CONTRAST ??02/24/2024 10:42 AM HISTORY: ??Altered mental status, cocnern for ICH, on coumadin ?? COMPARISON: ??No prior similar studies TECHNIQUE: Using multidetector thin collimation helical acquisition technique, axial, coronal and sagittal CT images from the skull base to the vertex were obtained without intravenous contrast. Clin Nurse (topogram) image(s) also obtained and reviewed. Dose [...] the vertex were obtained without intravenous contrast. Clin Nurse (topogram) image(s) also obtained and reviewed. Dose [...] volume loss. FLAKO ZUNIGA MD SYSTEM ID: [id number] Jae Noel MD IM CT ORDERABLES * [...] AM CDT Jae Noel MD LAB - [facility] POCT RH LABORATORY POC [facility] Acute Care Lab [address] Lab (1st floor, no room number) [place] [address], [facility] * EKG 12-lead, tracing only (02/24/2024 10:12 AM CDT) Systolic Blood Pressure mmHg RADIOLOGY RESULTS Diastolic Blood Pressure mmHg RADIOLOGY RESULTS Ventricular Rate 77 BPM RAD IOLOGY RESULTS Atrial Rate 77 BPM RADIOLOG Y RESULTS AL Interval 210 ms RADIOLOG Y RESULTS QRS Duration 98 ms RADIOLO GY RESULTS QT 382 ms RADIOLOGY RESULTS QTc 432 ms RADIOLOGY RESULTS P Arg[place] 49 degrees RADIOLOGY RESULTS R AXIS 6 degrees RADIOLOGY RESULTS T [place] 36 degrees RADIOLOGY RESULTS Interpretation ECG Sinus rhythm with 1st degree A-V block Otherwise normal ECG When compared with ECG of 16-DEC-2015 14:48, Criteria for Septal infarct are no longer Present Unconfirmed report - interpretation of this ECG is computer generated - see medical record for final interpretation Confirmed by - EMERGENCY ROOM, PHYSICIAN ([id number]), film editor supervisor YISSEL VELASQUEZ ([id number]) on 02/24/2024 10:54:14 AM RADIOLOGY RESULTS 02/24/2024 10:1 2 AM CDT 02/24/2024 10:54 AM CDT Jae Noel MD ECG ORDERABLES RADIOLOGY RESULTS * Adult Type and Screen (02/24/2024 10:07 AM CDT) ABO/RH(D) O POS 02/24/2024 10:08 AM CDT RH BLOOD BANK Antibody Screen Negative Negative 02/24/2024 10:08 AM CDT RH BLOOD BANK SPECIMEN EXPIRATION DATE [id number] 02/24/2024 10:08 AM CDT RH BLOOD BANK Blood STRUCTURE OF RIGHT UPPER LIMB / Unknown Venipuncture / Unknown 02/24/2024 10:07 AM CDT 02/24/2024 10:12 AM CDT Jae Noel MD LAB - BLOOD BANK SHANNON T ORDER Performing Organization Address City/[facility]/ZIP Co de Phone Number BLOOD BANK [address] [place] [phone] [place] [address] * Ammonia (02/24/2024 10:06 AM CDT) Ammonia 26 16 - 60 umol/L 02/24/2024 10:32 AM CDT RH LABORATORY Blood STRUCTURE OF RIGHT UPPER LIMB / Unknown Venipuncture / Unknown 02/24/2024 10:06 AM CDT 02/24/2024 10:13 AM CDT Jae Noel MD LAB - BLOOD ORDERABL ES Performing Organization Address [facility] Co de Phone Number [facility] Acute Care Lab [address] Lab (1st floor, no room number) [place] [phone] [place] [address] * Extra Purple Top Tube (02/24/2024 9:58 AM CDT) Hold Specimen [facility] 02/24/2024 11:16 AM CDT RH LABORATORY Blood STRUCTURE OF RIGHT UPPER LIMB / Unknown Venipuncture / Unknown 02/24/2024 9:58 AM CDT 02/24/2024 10:11 AM CDT Jae Noel MD LAB - BLOOD ORDERABL ES Performing Organization Address City/[facility]/ZIP Co de Phone Number [facility] Acute Care Lab [address] Lab (1st floor, no room number) [place] [phone] * Extra Green Top ([place] Heparin) Tube (02/24/2024 9:58 AM CDT) Hold Specimen [facility] 02/24/2024 11:16 AM CDT RH LABORATORY Blood STRUCTURE OF RIGHT UPPER LIMB / Unknown Venipuncture / Unknown 02/24/2024 9:58 AM CDT 02/24/2024 10:11 AM CDT Jae Noel MD LAB - BLOOD ORDERABL ES RH LABORATORY [facility] Acute Care Lab [address] Lab (1st floor, no room number) [place] [address] * Extra Blue Top Tube (02/24/2024 9:58 AM CDT) Hold Specimen JIC 02/24/2024 11:16 AM CDT RH LABORATORY Blood STRUCTURE OF RIGHT UPPER LIMB / Unknown Venipuncture / Unknown 02/24/2024 9:58 AM CDT 02/24/2024 10:11 AM CDT Jae Noel MD LAB - BLOOD ORDERABL ES LABORATORY [facility] Acute Care Lab [address] Lab (1st floor, no room number) [place] [phone] [place] [address] * (ABNORMAL) CBC with platelets and differential [...] LAB - BLOOD ORDERABL ES RH LABORATORY [facility] Acute Care Lab [address] [facility] Lab (1st floor, no room number) [place] [address], [facility] * (ABNORMAL) Comprehensive metabolic panel (02/24/2024 9:58 AM CDT) [facility] Sodium 130(L) 135 - 145 mmol/L [...] LAB - BLOOD ORDERABL ES RH LABORATORY [facility] Acute Care Lab [address] [facility] Lab (1st floor, no room number) [place] [address] * Hepatitis C (HIM External Result) (01/04/2022 12:00 PM CDT) Hep C HIM See Scanned Document EXTERNAL LAB Comment:Nonreactive 01/04/2022 12:0 0 PM CDT Narrative EXTERNAL LAB - 01/04/2022 12:00 PM CDT LAB RESULT [facility] [address] [place] [address] Provider Outside LAB - HIM EXTERNAL R ESULT EXTERNAL LAB External Lab * (ABNORMAL) Lipid panel (12/07/2017 12:34 PM PURCHASING CLERK) Pathologist [facility] Cholesterol 115 <200 mg/dL 12/07/2017 1:27 PM PURCHASING CLERK [facility] Triglycerides 84 <150 mg/dL 12/07/2017 1:27 PM PURCHASING CLERK [facility] HDL Cholesterol 37(L) >39 mg/dL 8 1:27 PM [facility] LDL Cholesterol Calculated 61 <100 mg/dL 12/07/2017 1:27 PM [facility] Comment:Desirable: <100 mg/d l Non HDL Cholesterol 78 <130 mg/dL 12/07/2017 1:27 PM PURCHASING CLERK [facility] Blood specimen (specimen) 12/07/2017 12:34 PM PURCHASING CLERK 12/07/2017 12:58 PM PURCHASING CLERK Michele Fuentes MD LAB - BLOOD ORD ERABLES [facility] [address] [address], [facility] [phone] * Colonoscopy - HIM Scan (09/24/2013) Narrative Suad Taylor - 09/24/2013 [facility] Progress Note Provider Outside PROCEDURES from Last 3 Months or Most Recently Relevant to Health Maintenance Advance Directives For more information, please contact: [phone] * Full Code (Latest Code Status on [...] 7:33 AM 12/16/2017 2:03 PM Care Teams Fireworks Inspector Relationship Specialty Start Date End Date Preet Huff PCP - General 06/24/11
--- OUTSIDE RECORDS SUMMARY | 2024-02-29 10:25 | XMS_ITS | Encounter Summary ---
Author Organization [facility] Address [address] [place] [address] Phone Care Team Providers Care Flavor Room Worker Name Role Phone Preet Huff MD Primary Care Provider [phone] Reason for Visit * Reason Comments Med Refill Encounter Details Date Type Department Care Team (Late st Contact Info) Description 02/12/2021 Refill [facility] [address] [facility] [address] [place], [place] [address] María Elena Styles PA [address] [place] [address] Social History Tobacco Use Types Packs/Day Years Used Date Smoking Tobacco: Never Assessed Sex and Gender Information Value Date Recorded Sex Assigned at Not on file Gender Identity Not on file Sexual Orientation Not on file documented as of this encounter Plan of Treatment Not on file documented as of this encounter Visit Diagnoses Not on filedocumented in this encounter Care Teams Flavor Room Worker Relationship Specialty Start Date End Date Preet Huff MD [address] [place] [phone] PCP - General 10/31/19 documented as of this encounter
--- OUTSIDE RECORDS SUMMARY | 2024-02-29 10:25 | XMS_ITS | Clinical Summary ---
Author Organization [facility] Address [place], [place] [address] Care Team Providers Care Pediatric Dental Hygienist Name Role Phone Preet Huff MD Primary [...] DVT of upper extremity (deep vein thrombosis) [facility] (current) use of anticoagulants 2010 Secondary hyperparathyroidism [...] Description 01/22/2024 9:00 AM CDT Orders Only [facility] [address] [place] [address] Lab 12/15/2023 Refill [facility] [address] [facility] [place] [address] Preet Huff MD Refill Request (Metoprolol Tartrate) [...] Comments Blood Pressure 123/76 11/08/2023 2:26 PM FIXED INTEREST DEALER Pulse 62 11/08/2023 2:26 PM FIXED INTEREST DEALER Temperature 36.9 ??C (98.4 ??F) 05/22/2020 1:36 PM CD T Respiratory Rate 18 06/07/2018 11:0 8 AM CDT Oxygen Saturation 99% 07/15/2022 1:59 PM CDT Inhaled Oxygen Concentration - - Weight 83.4 kg (183 lb 12.8 oz) 11/08/2023 2:26 PM FIXED INTEREST DEALER Height 172.3 cm (5' 7.84) 11/08/2023 2:26 PM CS T Body Mass Index 28.08 11/08/2023 2:26 PM FIXED INTEREST DEALER Plan of Treatment Upcoming Encounters Date Type Department Care Team (Late st Contact Info) Description 06/07/2024 2:30 PM CDT Office Visit [facility] [address] [place] [address] Lizandro Singh MD [address] [place] [address] Health Maintenance Due Date Last Done Comments [...] Completed 10/21/2009 Medical Devices Implanted Type Area Telephone Clerk Device Identifier Shelf Expiration Date Model / Serial / Lot Cath Peritoneal Cvd 62cm - [id number] Implanted:Qty: 1 on 10/31/[address] [facility] N/A: Abdomen STIVEN 05/10/2014 [id number] # / / [id number] Procedures Procedure Name Priority Date/Time Associated Diagnosis Comments LIPID PANEL W REFLEX MEASURED LDL Routine 11/08/2023 3:05 PM FIXED INTEREST DEALER Mixed hyperlipidemia COLONOSCOPY SCREENING Routine 09/24/2013 12:00 AM FIXED INTEREST DEALER Colon cancer screening ANTI HIV 1/2 Timed 03/04/2009 10:05 AM CDT Pre-Transplant Evaluation for End Stage Renal Disease ANTI HCV Timed 03/04/2009 10:05 AM CDT Pre-Transplant Evaluation for End Stage Renal Disease from Last 3 Months or Most Recently Relevant to Health Maintenance Results * (ABNORMAL) LIPID PANEL W REFLEX MEASURED LDL (11/08/2023 3:05 PM FIXED INTEREST DEALER) CHOLESTEROL,TOTAL 90(L) 100 - 199 mg/dL 11/09/2023 10:41 AM FIXED INTEREST DEALER [facility] Comment: Cholesterol, Total Reference Ranges Desirable <200 mg/dL Borderline 200-239 mg/dL High >=240 mg/dL TRIGLYCERIDES 104 <150 mg/dL 11/09/2023 10:41 AM [facility] HDL CHOLESTEROL 30(L) >40 mg/dL 10:41 AM [facility] NON-HDL CHOLESTEROL 60 <145 mg/dl 11/09/2023 10:41 AM [facility] CHOL/HDL RATIO 3.00 <4.50 11/09/2023 10:41 AM FIXED INTEREST DEALER [facility] TR[facility] LAB[facility] LDL CHOLESTEROL 39 <=130 mg/dL 11/09/2023 10:41 AM [facility] TRAL LAB[facility] VLDL CHOLESTEROL 21 <=30 mg/dL 11/09/2023 10:41 AM [facility] TRAL LABORATORY PROVIDER ORDERED STATUS RANDOM 11/09/2023 10:41 AM [facility] TRAL LAB[facility] Blood BLOOD SPECIMEN / Unknown Butterfly / Unknown 11/08/2023 3:05 PM FIXED INTEREST DEALER 11/08/2023 3:08 PM FIXED INTEREST DEALER Preet Huff MD CHEMISTRY [facility] [address] [place] [address], * COLONOSCOPY SCREENING (09/24/2013 12:00 AM FIXED INTEREST DEALER) Narrative 09/24/2013 12:00 AM FIXED INTEREST DEALER Procedure Note Scanner - 09/24/2013 12:00 AM CST Preet Huff MD GI PROCEDURE O RD * ANTI HCV (03/04/2009 10:05 AM CDT) ANTI HCV Non-reacti ve [facility] Blood specimen (specimen) BLOOD SPECIMEN / Unknown 03/04/2009 10:05 AM CDT 03/04/2009 9:57 AM CDT Alfredo Juarez MD SEND OUTS [facility] LABORATORY INTERNAL ZIP [address] [address] * ANTI HIV 1/2 (03/04/2009 10:05 AM CDT) ANTI HIV 1/2 Non-reacti ve [facility] Blood specimen (specimen) BLOOD SPECIMEN / Unknown 03/04/2009 10:05 AM CDT 03/04/2009 9:57 AM CDT Alfredo Juarez MD SEND OUTS [facility] LABORATORY INTERNAL ZIP [address] [address] from Last 3 Months or Most Recently Relevant to Health Maintenance Advance Directives Documents on File Type Date Recorded Patient Cotton Gin Yard Supervisor Expl anation Power of District Medical Examiner 09/04/2014 12:00 AM 07/2009 * Full Code [...] 5:57 PM 03/16/2009 5:32 PM Care Teams Pediatric Dental Hygienist Relationship Specialty Start Date End Date Preet Huff MD [address] [place] [address] PCP - General 12/02/06
--- OUTSIDE RECORDS SUMMARY | 2024-02-29 10:26 | XMS_ITS | Encounter Summary ---
Author Organization [place] Address [address] [facility] [place] [address] Care Team Providers Care Cotton Feeder Name Role Phone Preet Huff Primary Care Provider Jaxon Saravia MD Unavailable [phone] Encounter Details Date Type Department Care Team (Late st Contact Info) Description 12/21/2012 Orders Only [facility] Interventional Radiology [address] [place] [phone] Layla Garcia RN Social History Tobacco Use Types Packs/Day Years Used Date Smoking Tobacco: Never Smokeless Tobacco: Never Alcohol Use Standard Drinks/Week Comments No 0 (1 standard drink = 0.6 oz pur e alcohol) Sex and Gender Information Value Date Recorded Sex Assigned at Not on file Gender Identity Male 12/05/2017 10:39 AM DIGITAL SOLUTION ARCHITECT Sexual Orientation Not on file documented as of this encounter Plan of Treatment Not on file documented as of this encounter Visit Diagnoses Not on filedocumented in this encounter Care Teams Cotton Feeder Relationship Specialty Start Date End Date Preet Huff PCP - General 06/24/11 Jaxon Saravia MD [address] [place] [address] Assigned Heart and Vascular Provider 08/01/20 12/06/20 documented as of this encounter
--- OUTSIDE RECORDS SUMMARY | 2024-02-29 10:26 | XMS_ITS | Encounter Summary ---
Author Organization [place] Address [address] [facility] [place] [address] Care Team Providers Care Gis Programmer Name Role Phone RefugioPreet Primary Care Provider Encounter Details Date Type Department Care Team (Late st Contact Info) Description 02/08/2022 External Order Results [facility] [address] [place] [address] Outside, Provider Social History Tobacco Use Types Packs/Day Years Used Date Smoking Tobacco: Never Smokeless Tobacco: Never Alcohol Use Standard Drinks/Week Comments No 0 (1 standard drink = 0.6 oz pur e alcohol) PHQ-2 Answer Date Recorded PHQ-2 Score 0 10/18/2018 Sex and Gender Information Value Date Recorded Sex Assigned at Not on file Gender Identity Male 12/05/2017 10:39 AM WEB PROGRAMMER Sexual Orientation Not on file COVID-19 Exposure [...] on filedocumented in this encounter Care Teams Gis Programmer Relationship Specialty Start Date End Date Preet Huff PCP - General 06/24/11 documented as of this encounter
--- OUTSIDE RECORDS SUMMARY | 2024-02-29 10:26 | XMS_ITS | Encounter Summary ---
Author Organization [facility] Address [address] [address] Care Team Providers Care Cosmetics Machine Operator Name Role Phone Preet Huff Primary Care Provider [phone] Jaxon Saravia MD Unavailable [phone] Encounter Details Date Type Department Care Team (Late st Contact Info) Description 05/07/2013 Orders Only [facility] Interventional Radiology [address] [place] [id number] Layla Garcia RN Social History Tobacco Use Types Packs/Day Years Used Date Smoking Tobacco: Never Smokeless Tobacco: Never Alcohol Use Standard Drinks/Week Comments No 0 (1 standard drink = 0.6 oz pur e alcohol) Sex and Gender Information Value Date Recorded Sex Assigned at Not on file Gender Identity Male 12/05/2017 10:39 AM [employer] Sexual Orientation Not on file documented as of this encounter Plan of Treatment Not on file documented as of this encounter Visit Diagnoses Not on filedocumented in this encounter Care Teams Cosmetics Machine Operator Relationship Specialty Start Date End Date Preet Huff PCP - General 06/24/11 Jaxon Saravia MD [address] [place] [id number] Assigned Heart and Vascular Provider 08/01/20 12/06/20 documented as of this encounter
--- OUTSIDE RECORDS SUMMARY | 2024-02-29 10:26 | XMS_ITS | Encounter Summary ---
Author Organization [facility] Address [address] [place] [address] Care Team Providers [employer] Principal Name Role Phone Preet Huff Primary Care Provider [phone] Reason for Visit * Reason Comments Altered [...] type Rh 3 Medical Surgical [address] [place] [address] Referral ID Status Reason Start Date Expiration Date Visits Re quested Visits Authorized [id number] 1 1 Encounter Details Date Type Department Care Team (Late st Contact Info) Description 02/24/2024 9:38 AM CDT - 02/26/2024 3:30 PM CDT Hospital Encounter 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 Hospitalist Discharge Summary Date of Admission: [...] confusion noted by family. Patient wasseen at [facility] on 02/22 evening for concerns about [...] his mother and aunt who is his RESEARCH BIOSTATISTICIAN. He is legally blind as well. Hx [...] minutes discharging this patient. Georgia Perez DO [address] SURGICAL [address] [facility] [address] Physical Exam Vital Signs: Temp: 97.6 ??F [...] is related to your kidney disease. Your fourth officer will help with it. Follow-up and recommended [...] the vertex were obtained without intravenous contrast. Demolition Crane Operator (topogram) image(s) also obtained and reviewed. Dose [...] volume loss. FLAKO ZUNIGA MD SYSTEM ID: [id number] CT Abdomen Pelvis w Contrast Narrative EXAM: CT ABDOMEN PELVIS W CONTRAST LOCATION: [facility] DATE: 02/25/2024 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 [...] sent through Care Everywhere. 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 Patient reports there are no stairs at home. Self-Care Usual Activity Tolerance good Current Activity Tolerance moderate Equipment Currently Used at Home none Fall history within last six months no (Per patient) Activity/Exercise/Self-Care Comment Patient's family provides 10 hours of RESEARCH BIOSTATISTICIAN services per day, cousin cares for patient [...] Evaluation Time PT Eval, Moderate Complexity Minutes (43843) 8 Physical Therapy Goals PT Frequency Daily PT Predicted Duration/Target Date for Goal Attainment 02/29/24 PT Goals Bed Mobility;Transfers;Gait PT: Bed Mobility Supine to/from sit;Rolling;Supervision/stand-by assist PT: Transfers Supervision/stand-by assist;Sit to/from stand;Bed to/from chair PT: Gait Supervision/stand-by assist;150 feet Interventions Interventions Quick Adds Therapeutic Activity Therapeutic Activity Therapeutic Activities: dynamic activities to improve functional performance Minutes (49991) 8 Symptoms Noted During/After Treatment Fatigue Treatment [...] lives with family, has 10 hours of RESEARCH BIOSTATISTICIAN assist per day. Anticipate discharge home with [...] checked every 4 hours. Outpatient Dialysis at [facility] Patient weight shifting, unable to make large shifts due to AVF in thigh Post treatment report given to Andre Franklin RN, RN Please remove patient dressing on AVF and AVG needle sites 24 hours after dialysis. If leaking occurs please apply a Band-Aid. * Georgia Perez DO - 02/25/2024 9:11 AM CDTFormatting of this note is different from the [facility] Medicine Progress Note - Hospitalist Service Date [...] Per his Aunt, patient was seen at [facility] on 02/22 evening for concerns about [...] his mother and aunt who is his RESEARCH BIOSTATISTICIAN. He is legally blind as well. Hx [...] 2-4 Days Georgia Perez DO Hospitalist Service [facility] Securely message with Kidbox (more info) Text page via [facility] Paging/Directory Interval History No acute overnight [...] End-stage renal disease: Chronic Tuesday dialysis at [facility] Public Housing Manager: Dr. Holman Access: Left thigh AV graft, [...] evaluation ongoing, possible EGD Mann Brush DO [facility] consultants Office: [phone] Interval History: Patient seen during dialysis, admission [...] medications, labs and imaging. Mann Brush DO [facility] - Nephrology Office: [phone] * Mazin Srivastava MD - 02/24/2024 6:19 [...] Blackwood PA-C - 02/24/2024 12:12 PM CDT [facility] History and Physical - Hospitalist Service Date [...] Per his Aunt, patient was seen at [facility] ED on 02/22 evening for concerns about [...] his mother and aunt who is his RESEARCH BIOSTATISTICIAN. He is legally blind as well. Hx [...] provider . GÓMEZ Blackwood PA-C Hospitalist Service [facility] Securely message with Vocera (more info) Text page via [facility] Paging/Directory Chief Complaint Dark stools History [...] Per his Aunt, patient was seen at [facility] ED on 02/22 evening for concerns about [...] LOOP GRAFT WITH CADAVER FEMORAL ARTERY; Surgeon: Roebr Saravia MD; Location: OR CREATE GRAFT LOOP [...] Informant Patient Reported? Taking? AMLODIPINE BESYLATE PO Book Canvasser Yes No Sig: Take 10 mg by mouth four times a week On Non dialysis days which is MWFSun BISACODYL PO Book Canvasser Yes No Sig: Take 10 mg by mouth four times a week (Takes 2 x 5mg tablet = 10mg dose) Tuesday, Tuesday, Tuesday, and Tuesday Calcium Acetate, Phos Binder, (CALCIUM ACETATE PO) Book Canvasser Yes No Sig: Take 1,334 mg by mouth 3 times daily (with meals) Takes with meals (2 x 667mg tablet) Cholecalciferol (VITAMIN D3 PO) Book Canvasser Yes No Sig: Take 2,000 Units by mouth every evening LISINOPRIL PO Book Canvasser Yes No Sig: Take 40 mg by mouth daily (Takes 2 x 20mg tablet = 40mg ) METOPROLOL TARTRATE PO Book Canvasser Yes No Sig: Take 100 mg by [...] the vertex were obtained without intravenous contrast. Demolition Crane Operator (topogram) image(s) also obtained and reviewed. Dose [...] volume loss. FLAKO ZUNIGA MD SYSTEM ID: [id number] Associated attestation - Georgia Perez DO - [...] Communication Assessment Patient's communication style: spoken language (Comoran or Bilingual) Hearing Difficulty or Deaf: no [...] Support: Care provided by: other (see comments) (RESEARCH BIOSTATISTICIAN who is an aunt,Thelma and cousin Aron) Provides care for: no one, unable/limited ability to care for self Marital Status: Single RESEARCH BIOSTATISTICIAN Description of Support System: Supportive, Involved Current Resources: Patient receiving home care services: No Community Resources: County Programs, County Worker, Dialysis Services, OP Dialysis, RESEARCH BIOSTATISTICIAN, Transportation Services Equipment currently used at home: none Supplies currently used at home: Employment/Financial: Employment Status: unknown Financial Concerns: unknown Does the patient's insurance plan have a 3 day qualifying hospital stay waiver? No Lifestyle & Psychosocial Needs: Social Determinants of Health Food Insecurity: No Food Insecurity (06/23/2022) Received from [employer] Food Insecurity Worried About Running Out of Food in the Last Year: 1 Depression: Not at risk (05/22/2020) Received from [employer] PHQ-2 PHQ-2 Score: 0 Housing Stability: Low Risk (06/23/2022) Received from [employer] Housing Stability Unable to Pay for Housing in the Last Year: 1 Tobacco Use: Medium Risk (11/08/2023) Received from [employer] Patient History Smoking Tobacco Use: Never Smokeless Tobacco Use: Never Passive Exposure: Yes Financial Resource Strain: Low Risk (06/23/2022) [facility] Financial Resource Strain Difficulty of Paying Living Expenses: 3 Difficulty of Paying Living Expenses: Not on file Alcohol Use: Not on file Transportation Needs: No Transportation Needs (06/23/2022) Received from [employer] Transportation Needs Lack of Transportation (Medical): 1 Physical Activity: Not on file Interpersonal Safety: Not on file Stress: Not on file Social Connections: Unknown (06/24/2023) Received from [facility] Social Connections Frequency of Communication with Friends [...] No Current Concerns Values/Beliefs: Spiritual, Cultural Beliefs, Hoahaoism Practices, Values that affect care: Additional Information: Chart reviewed. Emergency numbers listed on face sheet have been updated by SULY. SW called and spokewith pt's aunt Thelma [phone] who reports pt lives with his mom Arianna, aunt Thelma who is also his RESEARCH BIOSTATISTICIAN, cousin Aron who is also his RESEARCH BIOSTATISTICIAN and another cousin Javon. They live in a house. Thelma reports Aron cares for pt Tue-Tue and she provides pt's care on Sundays, he receives 10 hrsof RESEARCH BIOSTATISTICIAN services a day. She reports he is on a CADI Waiver. She reports he does not use any assistive devices. He gets dialysis on , W, F at [facility] [phone] and gets transportation there through [place] transport. Plan: SW will continue to follow pt and assist with discharge planning. Katja DUNCAN, [facility] Inpatient Care Coordination [facility] [phone] * Dinorah Allen APRN DOCTOR OF NATUROPATHIC MEDICINE - 02/24/2024 2:34 PM CDTAssociated Order(s): GASTROENTEROLOGY IP CONSULT Images from the original note were not included. GASTROENTEROLOGY CONSULTATION Herminio Victor [address] [place] [id number] 58 year old male Admission Date/Time: 02/24/2024 [...] has had a colonoscopy or EGD before. SENIOR QUALITY MANAGER medications reviewed which include omeprazole 20mg daily. [...] to person, tells me he is in [place], slow to respond PSYCH: [facility]: I [...] including patient evaluation, reviewing documentation/test results, and special order jeweler. Thank you for asking us to participate in the care of this patient. Dinorah Allen, ADRIAN [facility] ([facility]) [phone] Associated attestation - Momo Hercules MD - [...] 12:59 PM CDTAssociated Order(s): NEPHROLOGY IP CONSULT [facility] Nephrology Consultation Date of Admission: 02/24/2024 Assessment & Plan Herminio Victor is a 58 year old male who was admitted on 02/24/2024. Assessment: 1) End-stage renal disease: Chronic Tuesday dialysis at [facility] Public Housing Manager: Dr. Holman Access: Left thigh AV graft, [...] hospitalist DO [facility] [phone] Reason for Consult I was asked to see the patient for ESRD management History is obtained from the patient and chart review. History of Present Illness Herminio Victor is a 58 year old male who presents to the emergency room today with some concerns of anemia, GI bleeding. Also some agitation and altered mentation. Patient dialyzes Wednesdays and Fridays at [facility]. Found to have hemoglobin of 6.2 prompting [...] from dialysis unit, last visit by physician stripper opaquer on 02/13/2024. Past Medical History I have [...] Informant Patient Reported? Taking? AMLODIPINE BESYLATE PO Book Canvasser Yes No Sig: Take 10 mg by mouth four times a week On Non dialysis days which is MWFSun BISACODYL PO Book Canvasser Yes No Sig: Take 10 mg by mouth four times a week (Takes 2 x 5mg tablet = 10mg dose) Tuesday, Tuesday, Tuesday, and Tuesday Calcium Acetate, Phos Binder, (CALCIUM ACETATE PO) Book Canvasser Yes No Sig: Take 1,334 mg by mouth 3 times daily (with meals) Takes with meals (2 x 667mg tablet) Cholecalciferol (VITAMIN D3 PO) Book Canvasser Yes No Sig: Take 2,000 Units by mouth every evening LISINOPRIL PO Book Canvasser Yes No Sig: Take 40 mg by mouth daily (Takes 2 x 20mg tablet = 40mg ) METOPROLOL TARTRATE PO Book Canvasser Yes No Sig: Take 100 mg by [...] Hernandez RN - 02/24/2024 11:51 AM CDT [facility] ED Nurse Handoff Report ED Chief complaint: [...] 2. Lift room needed: Yes. 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 Infection: Not Applicable. [...] was sent here. He was seen at [facility] yesterday but nothing was found to be [...] Component Type Red Blood Cells Product Code H6613B00 Unit Status Not used Unit Number [id number] CROSSMATCH Compatible CODING SYSTEM [id number] UNIT ABO/RH O+ UNIT TYPE ISBT 5100 PREPARE RED BLOOD CELLS (UNIT) Blood Component Type Red Blood Cells Product Code Z9204Z60 Unit Status Ready for issue Unit Number [id number] CROSSMATCH Compatible CODING SYSTEM [id number] PREPARE RED BLOOD CELLS (UNIT) TRANSFUSE RED BLOOD CELLS (UNIT) ABO/RH TYPE AND SCREEN CT Head w/o Contrast Final Result IMPRESSION: 1. No acute intracranial pathology. 2. Chronic small vessel ischemic disease and generalized cerebral volume loss. FLAKO ZUNIGA MD SYSTEM ID: [id number] Treatments provided: See MAR Family Comments: NA [...] was sent here. He was seen at [facility] yesterday but nothing was found to be [...] with mom and his aunt is his RESEARCH BIOSTATISTICIAN. Past Medical History Medical History and Problem [...] POS Antibody Screen Negative SPECIMEN EXPIRATION DATE [id number] PREPARE RED BLOOD CELLS (UNIT) Blood Component Type Red Blood Cells Product Code G2150L74 Unit Status Not used Unit Number [id number] CROSSMATCH Compatible CODING SYSTEM [id number] UNIT ABO/RH O+ UNIT TYPE ISBT 5100 PREPARE RED BLOOD CELLS (UNIT) Blood Component Type Red Blood Cells Product Code Z4298X88 Unit Status Transfused Unit Number [id number] CROSSMATCH Compatible CODING SYSTEM [id number] ISSUE DATE AND TIME [id number] UNIT ABO/RH O+ UNIT TYPE ISBT 5100 PREPARE RED BLOOD CELLS (UNIT) ABO/RH TYPE AND SCREEN Imaging CT Head w/o Contrast Final Result IMPRESSION: 1. No acute intracranial pathology. 2. Chronic small vessel ischemic disease and generalized cerebral volume loss. FLAKO ZUNIGA MD SYSTEM ID: [id number] EKG ECG taken at 1012, ECG read at 1020 Sinus rhythm with 1st degree AV block Otherwise normal ECG No change as compared to prior, dated 01/29/19. Rate 77 bpm. CA interval 210 ms. QRS duration 98 ms. [...] regarding admission. Medical Decision Making / Diagnosis [facility] Diagnoses: None MIPS None MDM Herminio Victor is a 58 year old male with a complex past medical history pertinent for end-stage renal disease on dialysis, long-term anticoagulation use with Coumadin for prior history of DVT, intellectual disability, and long-term care needs assisted with his appraiser personal property Aunt Thelma, who presents from dialysis due [...] Notes * Pharmacy-Anticoagulation Service - John Rosado, [facility] - 02/26/2024 3:30 PM CDT Images from the original note were not included. 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 INR Goal= 2-3 Warfarin SENIOR QUALITY MANAGER Regimen: 5 mg M-F Anticoagulation Dose History [...] lives with family, has 10 hours of RESEARCH BIOSTATISTICIAN assist per day. Anticipate discharge home with [...] Measures: self-care encouraged Goal: Hemostasis 02/26/2024423 by Foreing Lozada RN Outcome: Progressing 02/26/2024422 by Foreign [...] Axel Wiley - 02/24/2024 3:11 PM CDT Population Health Manager Admission Medication History Admission medication history is complete. The information provided in this note is only as accurateas the sources available at the time of the update. Information Source(s): Family member and CareEverywhere/SureScripts via phone Pertinent Information: Medication list obtained from sister (Thelma) who handles his medications. Changes made to SENIOR QUALITY MANAGER medication list: Added: Calcium Acetate (snack) Deleted: [...] Completed By: Axel Wiley 02/24/2024 3:11 PM SENIOR QUALITY MANAGER Med List Medication Sig Last Dose amLODIPine [...] at PM Associated attestation - Zuleyka Hopkins RPH - 02/24/2024 7:30 PM CDT Medication history completed by pharmacy operations coordinator, reviewed by Zuleyka Hopkins, PharmD * Plan [...] Flowsheet Documentation Taken 02/24/2024 1500 by Lilliana Hernandze RN Equipment Currently Used at Home: (Not [...] B Surface Antibody (02/26/2024 11:13 AM CDT) [facility] Hepatitis B Surface Antibody Reactive 02/26/2024 4:38 [...] LAB - BLOOD ORDER NADIA [facility] [address] [facility] [address] [facility], [address] [place] [address], [facility] * (ABNORMAL) INR (02/26/2024 9:49 AM CDT) INR 1.27(H) 0.85 - 1.15 02/26/2024 10:13 AM CDT [facility] Blood STRUCTURE OF RIGHT HAND / Unknown Venipuncture / Unknown 02/26/2024 9:49 AM CDT 02/26/2024 9:58 AM CDT Georgia Perez DO LAB - BLOOD ORDER NADIA LABORATORY [facility] [address] [facility] Lab (1st floor, no room number) [place] [address], [facility] * (ABNORMAL) Renal panel (02/26/2024 [...] LAB - BLOOD ORDER NADIA [facility] [address] [facility] Lab (1st floor, no room number) [place] [address] * (ABNORMAL) CBC with platelets (02/26/2024 [...] LAB - BLOOD ORDER NADIA [facility] [address] Lab (1st floor, no room number) [place] [address] * (ABNORMAL) Ferritin (02/26/2024 6:10 AM CDT) Ferritin 1,463(H) 31 - 409 ng/mL 02/26/2024 12:37 PM CDT [facility] Blood STRUCTURE OF RIGHT HAND / Unknown Venipuncture / Unknown 02/26/2024 6:10 AM CDT 02/26/2024 6:20 AM CDT Momo Hercules MD LAB - BLOOD ORDERABL ES [facility] [address] [facility], [address] [place] [address] * (ABNORMAL) Iron and iron binding [...] Hercules MD LAB - BLOOD ORDERABL ES [facility] [address] [facility] Lab (1st floor, no room number) [place] [address], [facility] * CT Abdomen Pelvis w Contrast [...] EXAM: CT ABDOMEN PELVIS W CONTRAST LOCATION: [facility] DATE: 02/25/2024 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 [...] EXAM: CT ABDOMEN PELVIS W CONTRAST LOCATION: [facility] DATE: 02/25/2024 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 [...] lytic changes involving the superior aspect of V5hanywwfot body (series 3, image 137) with some [...] and/or further evaluation with lumbarspine MRI. Georgia Ana DO IMG CT ORDERABLES * UPPER GI ENDOSCOPY (02/25/2024 3:01 PM CDT) Upper GI Endoscopy [facility] Patient Name: Herminio Victor ? Procedure Date: [...] ?Olympus Gastroscope, Model # [id number]-H190, Censitrac # [id number] was introduced through the mouth, and ?advanced [...] Note Initiated On: 02/25/2024 3:01 PM MRN: ?[id number] Procedure Date: ? 02/25/2024 3:01:34 PM Total [...] - BLOOD ORDERABL ES Performing Organization Address [facility]/ZIP Co de Phone Number [facility] [address] Lab (1st floor, no room number) [place] [address] * (ABNORMAL) INR (02/25/2024 9:28 AM CDT) INR 3.00(H) 0.85 - 1.15 02/25/2024 9:46 AM CDT [facility] Blood BLOOD SPECIMEN / Unknown Venipuncture / Unknown 02/25/2024 9:28 AM CDT 02/25/2024 9:32 AM CDT Georgia Perez DO LAB - BLOOD ORDER NADIA Performing Organization Address City/[facility]/ZIP Co de Phone Number [facility] [address] Lab (1st floor, no room number) [place] [address] * Hepatitis B surface antigen (02/25/2024 6:45 AM CDT) Hepatitis B Surface Antigen Nonreactive Nonreactive 02/25/2024 10:36 AM CDT [facility] Blood STRUCTURE OF LEFT UPPER LIMB / Unknown Venipuncture / Unknown 02/25/2024 6:45 AM CDT 02/25/2024 6:51 AM CDT Mann Brush DO LAB - BLOOD ORDERABL ES [facility] [address] [facility], [address] [place] [address] * (ABNORMAL) Hemoglobin (02/25/2024 6:45 AM CDT) Hemoglobin 7.8(L) 13.3 - 17.7 g/dL 02/25/2024 7:29 AM CDT LABORATORY Blood STRUCTURE OF LEFT UPPER LIMB / Unknown Venipuncture / Unknown 02/25/2024 6:45 AM CDT 02/25/2024 6:51 AM CDT Gómez Blackwood PA-C LAB - BLOOD ORDERABL ES LABORATORY [facility] Acute [facility] Lab [address] Lab (1st floor, no room number) [place] [address] * (ABNORMAL) CBC with platelets (02/25/2024 [...] LAB - BLOOD ORDERABL ES [facility] Lab [address] [facility] Lab (1st floor, no room number) [place] [address], [facility] * (ABNORMAL) Basic metabolic panel [...] Blackwood PA-C LAB - BLOOD ORDERABL ES [facility] [address] [facility] Lab (1st floor, no room number) [place] [address], [facility] * Transfuse red blood cells (unit) (02/25/2024 12:35 AM CDT) Mazin Srivastava MD BLOOD TRANSFUSION OR DERABLES * Transfuse red blood cells (unit), 1 Units (02/25/2024 12:35 AM CDT) Mazin Srivastava MD BLOOD TRANSFUSION OR DERABLES * Prepare red blood cells (unit) (02/24/2024 9:17 PM CDT) Blood Component Type Red Blood Cells RH BLOOD BANK Product Code C2610R72 RH BLOO D BANK Unit Status Transfused RH BLOO D BANK Unit Number [id number] RH B LOOD BANK CROSSMATCH Compatible RH BLOOD BANK CODING SYSTEM [id number] RH BLO OD BANK ISSUE DATE AND TIME [id number] RH BLOOD BANK UNIT ABO/RH O+ RH BLOOD BANK UNIT TYPE ISBT 5100 RH BL OOD BANK 02/24/2024 9:17 PM CDT Mazin Srivastava MD BLOOD BANK PRODUCT O RDERABLES Performing Organization Address [facility] Co de Phone Number BLOOD BANK [address] [place] [address] * Transfuse red blood cells (unit) (02/24/2024 9:11 PM CDT) Mazin Srivastava MD BLOOD TRANSFUSION OR DERABLES * Transfuse red blood cells (unit), 1 Units (02/24/2024 9:11 PM CDT) aMzin Srivastava MD BLOOD TRANSFUSION OR DERABLES * Prepare red blood cells (unit) (02/24/2024 6:19 PM CDT) Blood Component Type Red Blood Cells RH BLOOD BANK Product Code P4297E59 RH BLOO D BANK Unit Status Transfused RH BLOO D BANK Unit Number [id number] RH B LOOD BANK CROSSMATCH Compatible RH BLOOD BANK CODING SYSTEM [id number] RH BLO OD BANK ISSUE DATE AND TIME [id number] RH BLOOD BANK UNIT ABO/RH O+ RH BLOOD BANK UNIT TYPE ISBT 5100 RH BL OOD BANK 02/24/2024 6:19 PM CDT Jae Noel MD BLOOD BANK PRODUCT O RDERABLES Performing Organization Address [facility] Co de Phone Number BLOOD BANK [address] [place] [address] * (ABNORMAL) Hemoglobin (02/24/2024 5:51 PM CDT) Hemoglobin 6.7(LL) 13.3 - 17.7 g/dL 02/24/2024 6:14 PM CDT [facility] Blood STRUCTURE OF LEFT UPPER LIMB / Unknown Venipuncture / Unknown 02/24/2024 5:51 PM CDT 02/24/2024 6:00 PM CDT Gómez Blackwood PA-C LAB - BLOOD ORDERABL ES Performing Organization Address City/[facility]/ZIP Co de Phone Number [facility] [address] [facility] Lab (1st floor, no room number) [place] [address] * Transfuse red blood cells (unit) (02/24/2024 2:35 PM CDT) Jae Noel MD BLOOD TRANSFUSION OR DERABLES * Transfuse red blood cells (unit), 1 Units (02/24/2024 2:35 PM CDT) Jae Noel MD BLOOD TRANSFUSION OR DERABLES * Prepare red blood cells (unit) (02/24/2024 11:35 AM CDT) Blood Component Type Red Blood Cells RH BLOOD BANK Product Code [id number] RH BLOO D BANK Unit Status Transfused RH BLOO D BANK Unit Number [id number] RH B LOOD BANK CROSSMATCH Compatible RH BLOOD BANK CODING SYSTEM [id number] RH BLO OD BANK ISSUE DATE AND TIME [id number] RH BLOOD BANK UNIT ABO/RH O+ RH BLOOD BANK UNIT TYPE ISBT 5100 RH BL OOD BANK 02/24/2024 11:3 5 AM CDT Jae Noel MD BLOOD BANK PRODUCT O RDERABLES BLOOD BANK [address] [place] [address] * (ABNORMAL) Occult blood stool (02/24/2024 11:31 AM CDT) Occult Blood Positive(A ) Negative JOJO 02/24/2024 11:40 AM CDT LABORATORY Stool RECTAL CONTENTS / Unknown Non-blood Collection / Unknown 02/24/2024 11:31 AM CDT 02/24/2024 11:38 AM CDT Jae Noel MD LAB - STOOLS ORDERAB LES LABORATORY [facility] [address] [facility], no room number) [place] [address] * CT Head w/o Contrast (02/24/2024 10:42 AM CDT) Anatomical Region Laterality Modality Head, SUBRAD CT NEURO, SUBRA D CT NEURO, UMP CT NEURO, RAD CT Computed Tomography Impressions 02/24/2024 11:11 AM CDT IMPRESSION: 1. No acute intracranial pathology. 2. Chronic small vessel ischemic disease and generalized cerebral volume loss. FLAKO ZUNIGA MD SYSTEM ID: ??[id number] Narrative 02/24/2024 11:11 AM CDT EXAM: CT HEAD W/O CONTRAST ??02/24/2024 10:42 AM HISTORY: ??Altered mental status, cocnern for ICH, on coumadin ?? COMPARISON: ??No prior similar studies TECHNIQUE: Using multidetector thin collimation helical acquisition technique, axial, coronal and sagittal CT images from the skull base to the vertex were obtained without intravenous contrast. Demolition Crane Operator (topogram) image(s) also obtained and reviewed. Dose [...] the vertex were obtained without intravenous contrast. Demolition Crane Operator (topogram) image(s) also obtained and reviewed. Dose [...] volume loss. FLAKO ZUNIGA MD SYSTEM ID: [id number] Jae Noel MD IMG CT ORDERABLES * [...] LAB - BEAKER POCT RH LABORATORY POC [facility] Lab [address] Lab (1st floor, no room number) [place] [address], [facility] * EKG 12-lead, tracing only (02/24/2024 10:12 AM CDT) Systolic Blood Pressure mmHg RADIOLOGY RESULTS Diastolic Blood Pressure mmHg RADIOLOGY RESULTS Ventricular Rate 77 BPM RAD IOLOGY RESULTS Atrial Rate 77 BPM RADIOLOG Y RESULTS CA Interval 210 ms RADIOLOG Y RESULTS QRS Duration 98 ms RADIOLO GY RESULTS QT 382 ms RADIOLOGY RESULTS QTc 432 ms RADIOLOGY RESULTS P [place] 49 degrees RADIOLOGY RESULTS R AXIS 6 degrees RADIOLOGY RESULTS T [place] 36 degrees RADIOLOGY RESULTS Interpretation ECG Sinus rhythm with 1st degree A-V block Otherwise normal ECG When compared with ECG of 16-DEC-2015 14:48, Criteria for Septal infarct are no longer Present Unconfirmed report - interpretation of this ECG is computer generated - see medical record for final interpretation Confirmed by - EMERGENCY ROOM, PHYSICIAN ([id number]), digital editor YISSEL VELASQUEZ ([id number]) on 02/24/2024 10:54:14 AM RADIOLOGY RESULTS 02/24/2024 10:1 2 AM CDT 02/24/2024 10:54 AM CDT Jae Noel MD ECG ORDERABLES Performing Organization Address City/[facility]/ZIP Co de Phone Number RADIOLOGY RESULTS * Adult Type and Screen (02/24/2024 10:07 AM CDT) ABO/RH(D) O POS 02/24/2024 10:08 AM CDT RH BLOOD BANK Antibody Screen Negative Negative 02/24/2024 10:08 AM CDT RH BLOOD BANK SPECIMEN EXPIRATION DATE [id number] 02/24/2024 10:08 AM CDT RH BLOOD BANK Blood STRUCTURE OF RIGHT UPPER LIMB / Unknown Venipuncture / Unknown 02/24/2024 10:07 AM CDT 02/24/2024 10:12 AM CDT Jae Noel MD LAB - BLOOD BANK SHANNON T ORDER Performing Organization Address City/[facility] Co de Phone Number RH BLOOD BANK [address] [place] [address], [facility] * Ammonia (02/24/2024 10:06 AM CDT) Ammonia 26 16 - 60 umol/L 02/24/2024 10:32 AM CDT RH LABORATORY Blood STRUCTURE OF RIGHT UPPER LIMB / Unknown Venipuncture / Unknown 02/24/2024 10:06 AM CDT 02/24/2024 10:13 AM CDT Jae Noel MD LAB - BLOOD ORDERABL ES RH LABORATORY [facility] Lab [address] Lab (1st floor, no room number) [place] [address], [facility] * (ABNORMAL) CBC with platelets and differential [...] Noel MD LAB - BLOOD ORDERABL ES [facility] Lab [address] [facility] Lab (1st floor, no room number) [address] * (ABNORMAL) INR (02/24/2024 9:58 AM CDT) INR 2.46(H) 0.85 - 1.15 02/24/2024 10:26 AM CDT RH LABORATORY Blood STRUCTURE OF RIGHT UPPER LIMB / Unknown Venipuncture / Unknown 02/24/2024 9:58 AM CDT 02/24/2024 10:11 AM CDT Jae Noel MD LAB - BLOOD ORDERABL ES [facility] [address] Lab (1st floor, no room number) [address] * (ABNORMAL) Comprehensive metabolic panel (02/24/2024 [...] - BLOOD ORDERABL ES Performing Organization Address City/[facility]/ZIP Co de Phone Number [facility] Lab [address] Lab (1st floor, no room number) [address] * Extra Purple Top Tube (02/24/2024 9:58 AM CDT) Hold Specimen [facility] 02/24/2024 11:16 AM CDT RH LABORATORY Blood STRUCTURE OF RIGHT UPPER LIMB / Unknown Venipuncture / Unknown 02/24/2024 9:58 AM CDT 02/24/2024 10:11 AM CDT Jae Noel MD LAB - BLOOD ORDERABL ES [facility] [address] Lab (1st floor, no room number) [address] * Extra Green Top ([place] Heparin) Tube (02/24/2024 9:58 AM CDT) Hold Specimen [facility] 02/24/2024 11:16 AM CDT RH LABORATORY Blood STRUCTURE OF RIGHT UPPER LIMB / Unknown Venipuncture / Unknown 02/24/2024 9:58 AM CDT 02/24/2024 10:11 AM CDT Jae Noel MD LAB - BLOOD ORDERABL ES [facility] Lab [address] Lab (1st floor, no room number) [place] [address], [facility] * Extra Blue Top Tube (02/24/2024 9:58 AM CDT) Hold Specimen C 02/24/2024 11:16 AM CDT LABORATORY Blood STRUCTURE OF RIGHT UPPER LIMB / Unknown Venipuncture / Unknown 02/24/2024 9:58 AM CDT 02/24/2024 10:11 AM CDT Jae Noel MD LAB - BLOOD ORDERABL ES Performing Organization Address City/[facility]/ZIP Co de Phone Number [facility] Lab [address] Lab (1st floor, no room number) [place] [address], [facility] documented in this encounter Visit Diagnoses Diagnosis [...] on 02/25/24 at 1421, For 1 dose, [place] throat with 1 spray 5 minutes prior [...] on 02/25/24 at 1421, For 1 dose, [place] throat with 1 spray 5 minutes prior [...] stools. documented in this encounter Care Teams [employer] Principal Relationship Specialty Start Date End Date Preet Huff PCP - General 06/24/11 documented as of this encounter
--- OUTSIDE RECORDS SUMMARY | 2024-02-29 10:26 | XMS_ITS | Encounter Summary ---
Author Organization [place] Address [address] [facility] [place] [address] Care Team Providers Care Precision Agriculture Technician Name Role Phone Preet Huff Primary Care Provider [phone] Jaxon Saravia MD Unavailable [phone] Encounter Details Date Type Department Care Team (Late st Contact Info) Description 10/20/2011 Hospital PHYS STANDARD [address] [phone] Wojciech Holman MD [facility] [address] [id number] ESRD (end stage renal disease) on dialysis (H); Hyperkalemia Social History Tobacco Use Types Packs/Day Years Used Date Smoking Tobacco: Never Smokeless Tobacco: Never Alcohol Use Standard Drinks/Week Comments No 0 (1 standard drink = 0.6 oz pur e alcohol) Sex and Gender Information Value Date Recorded Sex Assigned at Not on file Gender Identity Male 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
--- OUTSIDE RECORDS SUMMARY | 2024-02-29 10:26 | XMS_ITS | Encounter Summary ---
Author Organization [place] Address [address] [facility] [place] [address] Care Team Providers Care Destination Sign Repairer Name Role Phone Preet Huff Primary Care Provider [phone] Jaxon Saravia MD Unavailable [phone] Encounter Details Date Type Department Care Team (Late st Contact Info) Description 05/07/2013 Orders Only [facility] Interventional Radiology 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
--- OUTSIDE RECORDS SUMMARY | 2024-02-29 10:26 | XMS_ITS | Encounter Summary ---
Author Organization [facility] Address [address] [place] [address] Care Team Providers Care Staffing Branch Manager Name Role Phone Preet Huff Primary Care Provider [phone] Reason for Visit * Reason Comments Altered [...] [facility] [address] [place] [address] Referral ID Status Reason Start Date Expiration Date Visits Re quested Visits Authorized [id number] 1 1 Encounter Details Date Type Department Care Team (Late st Contact Info) Description 02/25/2024 2:50 PM CDT - 02/25/2024 3:25 PM CDT Surgery [facility] [address] [place] [address] Momo Hercules MD [facility] GA[facility] [place] [address] [facility] ANTOINETTE PORTILLO [id number] Esophagoscopy, gastroscopy, duodenoscopy (EGD), combined Surgery Details [...] file Gender Identity Male 12/05/2017 10:39 AM SOLUTION DIRECTOR Sexual Orientation Not on file documented as [...] Perez DO - 02/26/2024 3:13 PM CDT [facility] Hospitalist Discharge Summary Date of Admission: 02/24/2024 [...] confusion noted by family. Patient wasseen at [facility] on 02/22 evening for concerns about [...] his mother and aunt who is his SPORTS CLERK. He is legally blind as well. Hx [...] minutes discharging this patient. Georgia Perez DO [place] [address] MEDICAL SURGICAL [address] [facility] [address] Physical Exam Vital Signs: Temp: 97.6 ??F [...] is related to your kidney disease. Your roofer helper vinyl coating will help with it. Follow-up and recommended [...] the vertex were obtained without intravenous contrast. Canned Food Reconditioning Inspector (topogram) image(s) also obtained and reviewed. Dose [...] volume loss. FLAKO ZUNIGA MD SYSTEM ID: [id number] CT Abdomen Pelvis w Contrast Narrative EXAM: CT ABDOMEN PELVIS W CONTRAST LOCATION: [facility] DATE: 02/25/2024 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 [...] sent through Care Everywhere. * Esophageal Varices (Thai) documented in this encounter Medications at Time [...] mom (Arianna), aunt (Thelma) who is alsohis SPORTS CLERK, cousin (Aron) who is also his SPORTS CLERK, and another cousin (Javon). Patient reports there are no stairs at home. Self-Care Usual Activity Tolerance good Current Activity Tolerance moderate Equipment Currently Used at Home none Fall history within last six months no (Per patient) Activity/Exercise/Self-Care Comment Patient's family provides 10 hours of SPORTS CLERK services per day, cousin cares for patient [...] Evaluation Time PT Eval, Moderate Complexity Minutes (72037) 8 Physical Therapy Goals PT Frequency Daily PT Predicted Duration/Target Date for Goal Attainment 02/29/24 PT Goals Bed Mobility;Transfers;Gait PT: Bed Mobility Supine to/from sit;Rolling;Supervision/stand-by assist PT: Transfers Supervision/stand-by assist;Sit to/from stand;Bed to/from chair PT: Gait Supervision/stand-by assist;150 feet Interventions Interventions Quick Adds Therapeutic Activity Therapeutic Activity Therapeutic Activities: dynamic activities to improve functional performance Minutes (70381) 8 Symptoms Noted During/After Treatment Fatigue Treatment [...] lives with family, has 10 hours of SPORTS CLERK assist per day. Anticipate discharge home with [...] to treatment See Adult Hemodialysis flowsheet in [facility] for further details and post assessment. Machine water alarm in place and functioning. Transducer pods intact and checked every 15min. Pt returned via bed. Chlorine/Chloramine water system checked every 4 hours. Outpatient Dialysis at [facility] Patient weight shifting, unable to make large shifts due to AVF in thigh Post treatment report given to Andre Franklin RN, RN Please remove patient dressing on AVF and AVG needle sites 24 hours after dialysis. If leaking occurs please apply a Band-Aid. * Georgia Perez, - 02/25/2024 9:11 AM CDT [facility] Medicine Progress Note - Hospitalist Service [...] Per his Aunt, patient was seen at [facility] on 02/22 evening for concerns about [...] his mother and aunt who is his SPORTS CLERK. He is legally blind as well. Hx [...] 2-4 Days Georgia Perez DO Hospitalist Service [facility] Securely message with Bloxy (more info) Text page via [employer] Paging/Directory Interval History No acute overnight events. [...] End-stage renal disease: Chronic Tuesday dialysis at [facility] Operator And Truck Driver: Dr. Holman Access: Left thigh AV graft, [...] evaluation ongoing, possible EGD Mann Brush DO [facility] consultants Office: [phone] Interval History: Patient seen during dialysis, admission [...] medications, labs and imaging. Mann Brush DO [facility] - Nephrology Office: [phone] * Mazin Srivastava MD - 02/24/2024 6:19 [...] Blackwood PA-C - 02/24/2024 12:12 PM CDT [facility] History and Physical - Hospitalist Service Date [...] Per his Aunt, patient was seen at [facility] on 02/22 evening for concerns about [...] his mother and aunt who is his SPORTS CLERK. He is legally blind as well. Hx [...] provider . GÓMEZ Blackwood PA-C Hospitalist Service [facility] Securely message with Bloxy (more info) Text page via [facility] Paging/Directory Chief Complaint Dark stools History is [...] Per his Aunt, patient was seen at [facility] on 02/22 evening for concerns about [...] Informant Patient Reported? Taking? AMLODIPINE BESYLATE PO Rn New Graduate Yes No Sig: Take 10 mg by mouth four times a week On Non dialysis days which is MWFSun BISACODYL PO Rn New Graduate Yes No Sig: Take 10 mg by mouth four times a week (Takes 2 x 5mg tablet = 10mg dose) Tuesday, Tuesday, Tuesday, and Tuesday Calcium Acetate, Phos Binder, (CALCIUM ACETATE PO) Rn New Graduate Yes No Sig: Take 1,334 mg by mouth 3 times daily (with meals) Takes with meals (2 x 667mg tablet) Cholecalciferol (VITAMIN D3 PO) Rn New Graduate Yes No Sig: Take 2,000 Units by mouth every evening LISINOPRIL PO Rn New Graduate Yes No Sig: Take 40 mg by mouth daily (Takes 2 x 20mg tablet = 40mg ) METOPROLOL TARTRATE PO Rn New Graduate Yes No Sig: Take 100 mg by [...] the vertex were obtained without intravenous contrast. Canned Food Reconditioning Inspector (topogram) image(s) also obtained and reviewed. Dose [...] volume loss. FLAKO ZUNIGA MD SYSTEM ID: [id number] Associated attestation - Georgia Perez DO - [...] Communication Assessment Patient's communication style: spoken language (Thai or Bilingual) Hearing Difficulty or Deaf: no [...] Support: Care provided by: other (see comments) (SPORTS CLERK who is an aunt,Thelma and cousin Aron) Provides care for: no one, unable/limited ability to care for self Marital Status: Single SPORTS CLERK Description of Support System: Supportive, Involved Current Resources: Patient receiving home care services: No Community Resources: County Programs, County Worker, Dialysis Services, OP Dialysis, SPORTS CLERK, Transportation Services Equipment currently used at home: none Supplies currently used at home: Employment/Financial: Employment Status: unknown Financial Concerns: unknown Does the patient's insurance plan have a 3 day qualifying hospital stay waiver? No Lifestyle & Psychosocial Needs: Social Determinants of Health Food Insecurity: No Food Insecurity (06/23/2022) Received from [employer] Food Insecurity Worried About Running Out of Food in the Last Year: 1 Depression: Not at risk (05/22/2020) Received from [employer] PHQ-2 PHQ-2 Score: 0 Housing Stability: Low Risk (06/23/2022) Received from [employer] Housing Stability Unable to Pay for Housing in the Last Year: 1 Tobacco Use: Medium Risk (11/08/2023) Received from [employer] Patient History Smoking Tobacco Use: Never Smokeless Tobacco Use: Never Passive Exposure: Yes Financial Resource Strain: Low Risk (06/23/2022) Received from [employer] Financial Resource Strain Difficulty of Paying Living Expenses: 3 Difficulty of Paying Living Expenses: Not on file Alcohol Use: Not on file Transportation Needs: No Transportation Needs (06/23/2022) Received from [employer] [facility] Transportation Needs Lack of Transportation (Medical): 1 Physical Activity: Not on file Interpersonal Safety: Not on file Stress: Not on file Social Connections: Unknown (06/24/2023) Received from [employer] [facility] Social Connections [...] No Current Concerns Values/Beliefs: Spiritual, Cultural Beliefs, Mu-Ism Practices, Values that affect care: Additional Information: Chart reviewed. Emergency numbers listed on face sheet have been updated by SW. SW called and spokewith pt's aunt Thelma [phone] who reports pt lives with his mom Arianna, aunt Thelma who is also his SPORTS CLERK, cousin Aron who is also his SPORTS CLERK and another cousin Javon. They live in a house. Thelma reports Aron cares for pt Tue-Tue and she provides pt's care on Sundays, he receives 10 hrsof SPORTS CLERK services a day. She reports he is on a CADI Waiver. She reports he does not use any assistive devices. He gets dialysis on , W, F at [facility] [phone] and gets transportation there through [facility]. Plan: SW will continue to follow pt and assist with discharge planning. Katja DUNCAN, [facility] Inpatient Care Coordination [facility] [phone] * Dinorah Allen APRN SENIOR CARE MANAGER - 02/24/2024 2:34 PM CDTAssociated Order(s): GASTROENTEROLOGY IP CONSULT Images from the original note were not included. GASTROENTEROLOGY CONSULTATION Herminio Navarro Kayleigh [address] [place] [id number] 58 year old male Admission Date/Time: 02/24/2024 [...] has had a colonoscopy or EGD before. CHEMICAL WEIGHER medications reviewed which include omeprazole 20mg daily. [...] to person, tells me he is in [place], slow to respond PSYCH: [facility]: I [...] including patient evaluation, reviewing documentation/test results, and video recorder mechanic. Thank you for asking us to participate in the care of this patient. Dinorah Allen, ADRIAN [facility] ([facility]) [phone] Associated attestation - Momo Hercules MD - [...] 12:59 PM CDTAssociated Order(s): NEPHROLOGY IP CONSULT [facility] Nephrology Consultation Date of Admission: 02/24/2024 Assessment & Plan Herminio Victor is a 58 year old male who was admitted on 02/24/2024. Assessment: 1) End-stage renal disease: Chronic Tuesday dialysis at [facility] Operator And Truck Driver: Dr. Holman Access: Left thigh AV graft, [...] hospitalist DO [facility] Nephrology [phone] Reason for Consult I was asked to see the patient for ESRD management History is obtained from the patient and chart review. History of Present Illness Herminio Victor is a 58 year old male who presents to the emergency room today with some concerns of anemia, GI bleeding. Also some agitation and altered mentation. Patient dialyzes Wednesdays and Fridays at [facility]. Found to have hemoglobin of 6.2 prompting [...] from dialysis unit, last visit by physician fishing vessel operator on 02/13/2024. Past Medical History I have [...] Informant Patient Reported? Taking? AMLODIPINE BESYLATE PO Rn New Graduate Yes No Sig: Take 10 mg by mouth four times a week On Non dialysis days which is MWFSun BISACODYL PO Rn New Graduate Yes No Sig: Take 10 mg by mouth four times a week (Takes 2 x 5mg tablet = 10mg dose) Tuesday, Tuesday, Tuesday, and Tuesday Calcium Acetate, Phos Binder, (CALCIUM ACETATE PO) Rn New Graduate Yes No Sig: Take 1,334 mg by mouth 3 times daily (with meals) Takes with meals (2 x 667mg tablet) Cholecalciferol (VITAMIN D3 PO) Rn New Graduate Yes No Sig: Take 2,000 Units by mouth every evening LISINOPRIL PO Rn New Graduate Yes No Sig: Take 40 mg by mouth daily (Takes 2 x 20mg tablet = 40mg ) METOPROLOL TARTRATE PO Rn New Graduate Yes No Sig: Take 100 mg by [...] Hernandez RN - 02/24/2024 11:51 AM CDT [facility] ED Nurse Handoff Report ED Chief complaint: [...] 2. Lift room needed: Yes. Bariatric: No Casting Coordinator Needed: No Isolation: No. Infection: Not Applicable. [...] was sent here. He was seen [facility] yesterday but nothing was found to [...] Component Type Red Blood Cells Product Code Q3360D07 Unit Status Not used Unit Number [id number] CROSSMATCH Compatible CODING SYSTEM [id number] UNIT ABO/RH O+ UNIT TYPE ISBT 5100 PREPARE RED BLOOD CELLS (UNIT) Blood Component Type Red Blood Cells Product Code B7092A62 Unit Status Ready for issue Unit Number [id number] CROSSMATCH Compatible CODING SYSTEM [id number] PREPARE RED BLOOD CELLS (UNIT) TRANSFUSE RED BLOOD CELLS (UNIT) ABO/RH TYPE AND SCREEN CT Head w/o Contrast Final Result IMPRESSION: 1. No acute intracranial pathology. 2. Chronic small vessel ischemic disease and generalized cerebral volume loss. FLAKO ZUNIGA MD SYSTEM ID: [id number] Treatments provided: See MAR Family Comments: NA [...] was sent here. He was seen [facility] yesterday but nothing was found to [...] with mom and his aunt is his SPORTS CLERK. Past Medical History Medical History and Problem [...] POS Antibody Screen Negative SPECIMEN EXPIRATION DATE [id number] PREPARE RED BLOOD CELLS (UNIT) Blood Component Type Red Blood Cells Product Code N0219Y70 Unit Status Not used Unit Number [id number] CROSSMATCH Compatible CODING SYSTEM [id number] UNIT ABO/RH O+ UNIT TYPE ISBT 5100 PREPARE RED BLOOD CELLS (UNIT) Blood Component Type Red Blood Cells Product Code I3072A87 Unit Status Transfused Unit Number [id number] CROSSMATCH Compatible CODING SYSTEM [id number] ISSUE DATE AND TIME [id number] UNIT ABO/RH O+ UNIT TYPE ISBT 5100 PREPARE RED BLOOD CELLS (UNIT) ABO/RH TYPE AND SCREEN Imaging CT Head w/o Contrast Final Result IMPRESSION: 1. No acute intracranial pathology. 2. Chronic small vessel ischemic disease and generalized cerebral volume loss. FLAKO ZUNIGA MD SYSTEM ID: [id number] EKG ECG taken at 1012, ECG read at 1020 Sinus rhythm with 1st degree AV block Otherwise normal ECG No change as compared to prior, dated 01/29/19. Rate 77 bpm. MT interval 210 ms. QRS duration 98 ms. [...] ED Course ED Course as of 02/24/24 4725 TueFebruary 24, 2024 0952 Obtained the patients history and performed initial exam 1004 Spoke to the patients mother about the patients baseline and medical history 1209 I spoke with MARY Slater with Dr. Perez regarding admission. Medical Decision Making / Diagnosis [facility] Diagnoses: None MIPS None MDM Herminio Victor is a 58 year old male with a complex past medical history pertinent for end-stage renal disease on dialysis, long-term anticoagulation use with Coumadin for prior history of DVT, intellectual disability, and long-term care needs assisted with his personal support worker Aunt Thelma, who presents from dialysis due [...] Notes * Pharmacy-Anticoagulation Service - John Rosado [facility] - 02/26/2024 3:30 PM CDT Images from the original note were not included. 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 INR Goal= 2-3 Warfarin CHEMICAL WEIGHER Regimen: 5 mg M-F Anticoagulation Dose History [...] goal(s). See goals on Care Plan in [facility] electronic health record for goal details. Goals met Therapy recommendation(s): Patient mobilizing with SBA-CGA, no assistive device. Patient lives with family, has 10 hours of SPORTS CLERK assist per day. Anticipate discharge home with [...] Recent Flowsheet Documentation Taken 02/26/2024 0000 by oFreign Lozada RN Safety Promotion/Fall Prevention: activity supervised [...] medications reviewed Taken 02/25/2024 2100 by Foreign oLzada RN Sensory Stimulation Regulation: quiet environment promoted [...] Documentation Taken 02/25/2024 1609 by Ramila Singh, [employer] operations consultant Interventions: care clustered essential oils Goal: Readiness [...] with therapy. * Plan of Care - Noram Mcmahon RN - 02/25/2024 6:03 AM CDT [...] shift note. Outcome: Progressing Flowsheets (Taken 02/24/2024 7681) Outcome Evaluation: Hgb 6.7 at 1800 recheck. [...] Fall Risk Recent Flowsheet Documentation Taken 02/24/2024 2454 by Ramila Singh RN Safety Promotion/Fall Prevention: [...] Axel Wiley - 02/24/2024 3:11 PM CDT Care Navigator Admission Medication History Admission medication history is complete. The information provided in this note is only as accurateas the sources available at the time of the update. Information Source(s): Family member and CareEverywhere/SureScripts via phone Pertinent Information: Medication list obtained from sister (Thelma) who handles his medications. Changes made to CHEMICAL WEIGHER medication list: Added: Calcium Acetate (snack) Deleted: [...] Completed By: Axel Wiley 02/24/2024 3:11 PM CHEMICAL WEIGHER Med List Medication Sig Last Dose amLODIPine [...] at PM Associated attestation - Zuleyka Hopkins [facility] - 02/24/2024 7:30 PM CDT Medication history completed by pharmacy technician instructor, reviewed by Zuleyka Hopkins, PharmD * Plan [...] B Surface Antibody (02/26/2024 11:13 AM CDT) [facility] Hepatitis B Surface Antibody Reactive 02/26/2024 4:38 [...] LAB - BLOOD ORDER NADIA [facility]AT[facility] [address] [facility] [address] [facility] [address], [address] [place] [address], [facility] * (ABNORMAL) INR (02/26/2024 9:49 AM CDT) INR 1.27(H) 0.85 - 1.15 02/26/2024 10:13 AM CDT LABORATORY Blood STRUCTURE OF RIGHT HAND / Unknown Venipuncture / Unknown 02/26/2024 9:49 AM CDT 02/26/2024 9:58 AM CDT Georgia Ana DO LAB - BLOOD ORDER NADIA LABORATORY [facility] [address] Lab (1st floor, no room number) [place] [address] * (ABNORMAL) Renal panel (02/26/2024 [...] DO LAB - BLOOD ORDER NADIA LABORATORY [facility] [address] Lab (1st floor, no room number) [place] [address] * (ABNORMAL) CBC with platelets [...] DO LAB - BLOOD ORDER NADIA LABORATORY [facility] [address] Lab (1st floor, no room number) [place] [address], [facility] * (ABNORMAL) Ferritin (02/26/2024 6:10 AM CDT) Ferritin 1,463(H) 31 - 409 ng/mL 02/26/2024 12:37 PM CDT [facility] LABORATORY Blood STRUCTURE OF RIGHT HAND / Unknown Venipuncture / Unknown 02/26/2024 6:10 AM CDT 02/26/2024 6:20 AM CDT Momo Hercules MD LAB - BLOOD ORDERABL ES U LABORATORY [facility] [address] [facility], [address] [place] [address], [facility] * (ABNORMAL) Iron and iron binding [...] MD LAB - BLOOD ORDERABL ES LABORATORY [facility] [address] Lab (1st floor, no room number) [place] [address] * CT Abdomen Pelvis w [...] CT ABDOMEN PELVIS W CONTRAST LOCATION: [facility] DATE: 02/25/2024 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 [...] CT ABDOMEN PELVIS W CONTRAST LOCATION: [facility] DATE: 02/25/2024 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 [...] lytic changes involving the superior aspect of [id number] body (series 3, image 137) with some [...] UPPER GI ENDOSCOPY (02/25/2024 3:01 PM CDT) [facility] Upper GI Endoscopy [facility] Patient Name: Herminio Navarro Kayleigh ? Procedure [...] ?Olympus Gastroscope, Model # [id number], Censitrac # ?[id number] was introduced through the mouth, and ?advanced [...] Note Initiated On: 02/25/2024 3:01 PM MRN: ?[id number] Procedure Date: ? 02/25/2024 3:01:34 PM Total [...] PA-C LAB - BLOOD ORDERABL ES LABORATORY [facility] [address] Lab (1st floor, no room number) [place] [address], [facility] * (ABNORMAL) INR (02/25/2024 9:28 AM CDT) INR 3.00(H) 0.85 - 1.15 02/25/2024 9:46 AM CDT RH LABORATORY Blood BLOOD SPECIMEN / Unknown Venipuncture / Unknown 02/25/2024 9:28 AM CDT 02/25/2024 9:32 AM CDT Georgia Perez DO LAB - BLOOD ORDER NADIA LABORATORY [facility] [address] Lab (1st floor, no room number) [place] [address] * Hepatitis B surface antigen (02/25/2024 6:45 AM CDT) Hepatitis B Surface Antigen Nonreactive Nonreactive 02/25/2024 10:36 AM CDT LABORATORY Blood STRUCTURE OF LEFT UPPER LIMB / Unknown Venipuncture / Unknown 02/25/2024 6:45 AM CDT 02/25/2024 6:51 AM CDT Mann Brush DO LAB - BLOOD ORDERABL ES LABORATORY [facility] [address], [address] [place] [address] * (ABNORMAL) Hemoglobin (02/25/2024 6:45 AM CDT) Hemoglobin 7.8(L) 13.3 - 17.7 g/dL 02/25/2024 7:29 AM CDT LABORATORY Blood STRUCTURE OF LEFT UPPER LIMB / Unknown Venipuncture / Unknown 02/25/2024 6:45 AM CDT 02/25/2024 6:51 AM CDT Gómez Blackwood PA-C LAB - BLOOD ORDERABL ES LABORATORY [facility] [address] Lab (1st floor, no room number) [place] [address] * (ABNORMAL) CBC with platelets (02/25/2024 [...] PA-C LAB - BLOOD ORDERABL ES LABORATORY [facility] [address] Lab (1st floor, no room number) [place] [address], [facility] * (ABNORMAL) Basic metabolic panel (02/25/2024 6:45 AM CDT) [facility] Signature Sodium 126(L) 135 - 145 [...] PA-C LAB - BLOOD ORDERABL ES LABORATORY [facility] [address] [facility], no room number) [place] [address] * Transfuse red blood cells (unit) (02/25/2024 12:35 AM CDT) Mazin Srivastava MD BLOOD TRANSFUSION OR DERABLES * Transfuse red blood cells (unit), 1 Units (02/25/2024 12:35 AM CDT) Mazin Srivastava MD BLOOD TRANSFUSION OR DERABLES * Prepare red blood cells (unit) (02/24/2024 9:17 PM CDT) Blood Component Type Red Blood Cells RH BLOOD BANK Product Code T3536K38 RH BLOO D BANK Unit Status Transfused RH BLOO D BANK Unit Number [id number] RH B LOOD BANK CROSSMATCH Compatible RH BLOOD BANK CODING SYSTEM [id number] RH BLO OD BANK ISSUE DATE AND TIME [id number] RH BLOOD BANK UNIT ABO/RH O+ RH BLOOD BANK UNIT TYPE ISBT 5100 RH BL OOD BANK 02/24/2024 9:17 PM CDT Mazin Srivastava MD BLOOD BANK PRODUCT O RDERABLES Performing Organization Address [facility] Co de Phone Number BLOOD BANK [address] [place] [address] * Transfuse red blood cells (unit) (02/24/2024 9:11 PM CDT) Mazin Srivastava MD BLOOD TRANSFUSION OR DERABLES * Transfuse red blood cells (unit), 1 Units (02/24/2024 9:11 PM CDT) Mazin Srivastava MD BLOOD TRANSFUSION OR DERABLES * Prepare red blood cells (unit) (02/24/2024 6:19 PM CDT) Blood Component Type Red Blood Cells RH BLOOD BANK Product Code [id number] RH BLOO D BANK Unit Status Transfused RH BLOO D BANK Unit Number [id number] RH B LOOD BANK CROSSMATCH Compatible RH BLOOD BANK CODING SYSTEM [id number] RH BLO OD BANK ISSUE DATE AND TIME [id number] RH BLOOD BANK UNIT ABO/RH O+ RH BLOOD BANK UNIT TYPE ISBT 5100 RH BL OOD BANK 02/24/2024 6:19 PM CDT Jae Noel MD BLOOD BANK PRODUCT O RDERABLES Performing Organization Address [facility] Co de Phone Number RH BLOOD BANK [address] [place] [address] * (ABNORMAL) Hemoglobin (02/24/2024 5:51 PM CDT) Hemoglobin 6.7(LL) 13.3 - 17.7 g/dL 02/24/2024 6:14 PM CDT RH LABORATORY Blood STRUCTURE OF LEFT UPPER LIMB / Unknown Venipuncture / Unknown 02/24/2024 5:51 PM CDT 02/24/2024 6:00 PM CDT Gómez Blackwood PA-C LAB - BLOOD ORDERABL ES Performing Organization Address City/[facility]/ZIP Co de Phone Number [facility] [address] (1st floor, no room number) [place] [address] * Transfuse red blood cells (unit) (02/24/2024 2:35 PM CDT) Jae Noel MD BLOOD TRANSFUSION OR DERABLES * Transfuse red blood cells (unit), 1 Units (02/24/2024 2:35 PM CDT) Jae Noel MD BLOOD TRANSFUSION OR DERABLES * Prepare red blood cells (unit) (02/24/2024 11:35 AM CDT) Blood Component Type Red Blood Cells RH BLOOD BANK Product Code [id number] RH BLOO D BANK Unit Status Transfused RH BLOO D BANK Unit Number [id number] RH B LOOD BANK CROSSMATCH Compatible RH BLOOD BANK CODING SYSTEM [id number] RH BLO OD BANK ISSUE DATE AND TIME [id number] RH BLOOD BANK UNIT ABO/RH O+ RH BLOOD BANK UNIT TYPE ISBT 5100 RH BL OOD BANK 02/24/2024 11:3 5 AM CDT Jae Noel MD BLOOD BANK PRODUCT O RDERABLES Performing Organization Address [facility]/ZIP Co de Phone Number BLOOD BANK [address] [place] [address] * (ABNORMAL) Occult blood stool (02/24/2024 11:31 AM CDT) Occult Blood Positive(A ) Negative JOJO 02/24/2024 11:40 AM CDT RH LABORATORY Stool RECTAL CONTENTS / Unknown Non-blood Collection / Unknown 02/24/2024 11:31 AM CDT 02/24/2024 11:38 AM CDT Jae Nole MD LAB - STOOLS ORDERAB LES Performing Organization Address City/[facility]/ZIP Co de Phone Number [facility] [address] Lab (1st floor, no room number) [place] [address] * CT Head w/o Contrast (02/24/2024 10:42 AM CDT) Anatomical Region Laterality Modality Head, SUBRAD CT NEURO, SUBRA D CT NEURO, UMP CT NEURO, RAD CT Computed Tomography Impressions 02/24/2024 11:11 AM CDT IMPRESSION: 1. No acute intracranial pathology. 2. Chronic small vessel ischemic disease and generalized cerebral volume loss. FLAKO ZUNIGA MD SYSTEM ID: ??[id number] Narrative 02/24/2024 11:11 AM CDT EXAM: CT HEAD W/O CONTRAST ??02/24/2024 10:42 AM HISTORY: ??Altered mental status, cocnern for ICH, on coumadin ?? COMPARISON: ??No prior similar studies TECHNIQUE: Using multidetector thin collimation helical acquisition technique, axial, coronal and sagittal CT images from the skull base to the vertex were obtained without intravenous contrast. Canned Food Reconditioning Inspector (topogram) image(s) also obtained and reviewed. Dose [...] the vertex were obtained without intravenous contrast. Canned Food Reconditioning Inspector (topogram) image(s) also obtained and reviewed. Dose [...] volume loss. FLAKO ZUNIGA MD SYSTEM ID: [id number] Jae Noel MD IMG CT ORDERABLES * [...] LAB - BEAKER POCT RH LABORATORY POC [facility] [address] [facility] Lab (1st floor, no room number) [place] [address], [facility] * EKG 12-lead, tracing only (02/24/2024 10:12 AM CDT) Systolic Blood Pressure mmHg RADIOLOGY RESULTS Diastolic Blood Pressure mmHg RADIOLOGY RESULTS Ventricular Rate 77 BPM RAD IOLOGY RESULTS Atrial Rate 77 BPM RADIOLOG Y RESULTS MT Interval 210 ms RADIOLOG Y RESULTS QRS Duration 98 ms RADIOLO GY RESULTS QT 382 ms RADIOLOGY RESULTS QTc 432 ms RADIOLOGY RESULTS P [place] 49 degrees RADIOLOGY RESULTS R AXIS 6 degrees RADIOLOGY RESULTS T [place] 36 degrees RADIOLOGY RESULTS Interpretation ECG Sinus rhythm with 1st degree A-V block Otherwise normal ECG When compared with ECG of 16-DEC-2015 14:48, Criteria for Septal infarct are no longer Present Unconfirmed report - interpretation of this ECG is computer generated - see medical record for final interpretation Confirmed by - EMERGENCY ROOM, PHYSICIAN ([id number]), sound editor YISSEL VELASQUEZ ([id number]) on 02/24/2024 10:54:14 AM RADIOLOGY RESULTS 02/24/2024 10:1 2 AM CDT 02/24/2024 10:54 AM CDT Jae Noel MD ECG ORDERABLES RADIOLOGY RESULTS * Adult Type and Screen (02/24/2024 10:07 AM CDT) ABO/RH(D) O POS 02/24/2024 10:08 AM CDT RH BLOOD BANK Antibody Screen Negative Negative 02/24/2024 10:08 AM CDT RH BLOOD BANK SPECIMEN EXPIRATION DATE [id number] 02/24/2024 10:08 AM CDT RH BLOOD BANK Blood STRUCTURE OF RIGHT UPPER LIMB / Unknown Venipuncture / Unknown 02/24/2024 10:07 AM CDT 02/24/2024 10:12 AM CDT Jae Noel MD LAB - BLOOD BANK SHANNON T ORDER RH BLOOD BANK [address] [place] [address], [facility] * Ammonia (02/24/2024 10:06 AM CDT) Ammonia 26 16 - 60 umol/L 02/24/2024 10:32 AM CDT RH LABORATORY Blood STRUCTURE OF RIGHT UPPER LIMB / Unknown Venipuncture / Unknown 02/24/2024 10:06 AM CDT 02/24/2024 10:13 AM CDT Jae Noel MD LAB - BLOOD ORDERABL ES RH LABORATORY [facility] [address] Lab (1st floor, no room number) [place] [address], [facility] * (ABNORMAL) CBC with [...] Noel MD LAB - BLOOD ORDERABL ES [facility] [address] (1st floor, no room number) [place] [phone] [place] [address] * (ABNORMAL) INR (02/24/2024 9:58 AM CDT) INR 2.46(H) 0.85 - 1.15 02/24/2024 10:26 AM CDT RH LABORATORY Blood STRUCTURE OF RIGHT UPPER LIMB / Unknown Venipuncture / Unknown 02/24/2024 9:58 AM CDT 02/24/2024 10:11 AM CDT Jae Noel MD LAB - BLOOD ORDERABL ES [facility] [address] Lab (1st floor, no room number) [place] [address], [place] * (ABNORMAL) Comprehensive metabolic panel (02/24/2024 9:58 AM CDT) [facility] Sodium 130(L) 135 - 145 mmol/L 02/24/2024 [...] Noel MD LAB - BLOOD ORDERABL ES [facility] [address] Lab (1st floor, no room number) [place] [phone] [place] [address] * Extra Purple Top Tube (02/24/2024 9:58 AM CDT) [facility] Hold Specimen [facility] 02/24/2024 11:16 AM CDT RH LABORATORY Blood STRUCTURE OF RIGHT UPPER LIMB / Unknown Venipuncture / Unknown 02/24/2024 9:58 AM CDT 02/24/2024 10:11 AM CDT Jae Noel MD LAB - BLOOD ORDERABL ES [facility] [address] Lab (1st floor, no room number) [place] [address], [facility] * Extra Green Top ([place] Heparin) Tube (02/24/2024 9:58 AM CDT) Hold Specimen [facility] 02/24/2024 11:16 AM CDT LABORATORY Blood STRUCTURE OF RIGHT UPPER LIMB / Unknown Venipuncture / Unknown 02/24/2024 9:58 AM CDT 02/24/2024 10:11 AM CDT Jae Noel MD LAB - BLOOD ORDERABL ES Performing Organization Address City/[facility]/ZIP Co de Phone Number [facility] [address] Lab (1st floor, no room number) [place] [address] * Extra Blue Top Tube (02/24/2024 9:58 AM CDT) Hold Specimen [facility] 02/24/2024 11:16 AM CDT LABORATORY Blood STRUCTURE OF RIGHT UPPER LIMB / Unknown Venipuncture / Unknown 02/24/2024 9:58 AM CDT 02/24/2024 10:11 AM CDT Jae Noel MD LAB - BLOOD ORDERABL ES Performing Organization Address [facility]/ZIP Co de Phone Number [facility] Lab [address] Lab (1st floor, no room number) [place] [phone] [place] [address] documented in this encounter Visit Diagnoses Diagnosis [...] Flush (COMPLETED) Intravenous, 100 mL, ONCE, On [facility] 02/25/24 at 1700, For 1 dose, This entry is for use by Radiology to intermittently used as a flush in patients receiving a CT scan. 1650 ($Given - Provider: William Corrales) iopamidol (ISOVUE-370) solution 500 mL (COMPLETED) 500 mL, Intravenous, ONCE, On [facility] 02/25/24 at 1700, For 1 dose 1649 [...] 1 dose 1220 ($Given - Provider: Pal Franlkin RN - Comment: given upon return from [...] on 02/25/24 at 1421, For 1 dose, [place] throat with 1 spray 5 minutes prior [...] stools. documented in this encounter Care Teams Staffing Branch Manager Relationship Specialty Start Date End Date Huff, Preet L PCP - General 06/24/11 documented as of this encounter
--- OUTSIDE RECORDS SUMMARY | 2024-02-29 10:26 | XMS_ITS ---
Author Organization [facility] Address [address] [place] [address] Care Team Providers Care Hydraulic Miner Blasting Name Role Phone Preet Huff Primary Care Provider [phone] Transitional Care Management Status:Enrolled (Active) Start date:02/27/2024 Enrollment date:02/27/2024 Continued Care and Services Coordination
== END 2024-02-24 08:47 | disposition home or self-care (01) ==
LOC: AMB 02-29 10:22
PROVIDERS: PCP Internal Medicine Nephrology; Visit Provider Student in an Organized Health Care Education/Training Program
DX: R41.82 Altered mental status, unspecified (principal)
CPT/HCPCS: A0425; A0429

== ENCOUNTER 2024-05-23 12:28 | Outpatient (CLI) | payer MEDICARE, MEDICAID, SELFPAY ==
--- OUTSIDE RECORDS SUMMARY | 2024-05-24 23:42 | XMS_ITS | Encounter Summary ---
Author Organization [facility] Address [address] [place] [address] Phone Care Team Providers Care Leather Coater Name Role Phone Preet Huff MD Primary Care Provider [phone] Reason for Visit * Reason Comments Med Refill Encounter Details Date Type Department Care Team (Late st Contact Info) Description 03/23/2021 Refill [facility] [address] [facility] [address] [place], [place] [address] María Elena Styles PA [address] [facility] [address] [facility] [address] [place] [address] Social History Tobacco Use Types Packs/Day Years [...] on filedocumented in this encounter Care Teams Leather Coater Relationship Specialty Start Date End Date Preet Huff MD [address] [place] [phone] PCP - General 10/31/19 documented as of this encounter
--- OUTSIDE RECORDS SUMMARY | 2024-05-24 23:42 | XMS_ITS | Clinical Summary ---
Author Organization [facility] Address [address] [place] [address] Phone Care Team Providers Care Echocardiography Technologist Name Role Phone Preet Huff MD Primary Care Provider [phone] Medications Medication Sig Dispensed Refills Start Date End Date Status cholecalciferol (VITAMIN D-3) 1000 units tablet 1 tab qd 04/02/2015 Active B Complex Vitamins (VITAMIN B COMPLEX) tablet 1 tab po daily 12/08/2012 Act bill bisacodyl (DULCOLAX) 5 MG EC tablet 2 tabs po bid 04/02/2015 Active B Rxcmfwe-B-Ioygk Acid (RENAL) 1 MG capsule 1 cap [...] non-dialysis days only.. 180 tablet 1 02/08/2024 02/07/2025 Active warfarin (COUMADIN) 5 MG tablet TAKE ONE TABLET BY MOUTH EVERY DAY DIRECTED 90 tablet 2 02/22/2024 Active Active Problems Problem Noted Date Diagnosed Date Disorders of phosphorus metabolism 04/15/2015 Overview (08/18/2019): Converted unresolved ICD9, potential mismatch. Disorder of calcium metabolism 04/15/2015 Overview (08/18/2019): Converted unresolved ICD9, potential mismatch. Essential (primary) hypertension 04/10/2015 Vitamin D deficiency 12/11/2012 Secondary hyperparathyroidism of renal origin End stage renal disease 11/21/2012 Anemia in chronic kidney disease 11/21/2012 Social History Tobacco Use Types Packs/Day Years [...] 3 - PCV13 ) 1982 Influenza Vaccine (#1) 2024 Care Teams Echocardiography Technologist Relationship Specialty Start Date End Date Preet Huff MD [address] [place] [address] PCP - General 10/31/19
--- OUTSIDE RECORDS SUMMARY | 2024-05-24 23:42 | XMS_ITS | Encounter Summary ---
Author Organization [facility] Address [address] [place] [address] Phone Care Team Providers Care Diabetes Educator Name Role Phone Preet Huff MD Primary Care Provider Reason for Visit * Reason Comments Med Refill Encounter Details Date Type Department Care Team (Late st Contact Info) Description 02/20/2024 Refill [facility] [address] [facility] [address] [place], [place] [address] María Elena Styles PA [address] [place] [address] Social History Tobacco Use Types Packs/Day Years Used Date Smoking Tobacco: Never Assessed Sex and Gender Information Value Date Recorded Sex Assigned at Not on file Gender Identity Not on file Sexual Orientation Not on file documented as of this encounter Plan of Treatment Not on file documented as of this encounter Visit Diagnoses Not on filedocumented in this encounter Care Teams Diabetes Educator Relationship Specialty Start Date End Date Preet Huff MD [address] [place] [phone] PCP - General 10/31/19 documented as of this encounter
--- OUTSIDE RECORDS SUMMARY | 2024-05-24 23:42 | XMS_ITS | Clinical Summary ---
Author Organization [facility] [employer] [facility] Address [place], [place] [address] Care Team Providers Care Diesel Scoop Operator Name Role Phone Preet Huff MD Primary Care Provider Allergies Active Allergy Reactions Criticality Noted Date Comments Aspirin GI Bleeding Dihydroxyaluminum Aminoacetate Nausea Only Medium 04/2011 GI bleeding Medications Medication Sig Dispensed Refills Start Date End Date Status Diabetic ShoeIndications:Cont rolled type 2 diabetes mellitus with complication, without long-term current use of insulin (HC) One pair of diabetic shoes. Diagnosis: diabetes mellitus with foot callous and bony deformity. 1 Units 11/03/2017 Active wheelchairIndication s:Unsteady gait Wheelchair: Standard with leg rests: Swing away Length of need: 12 months 1 Device 12/20/2017 Active WalkerIndications:Un steady gait Rolling Walker for home use. 1 Device 12/20/2017 Active hospital bedIndications:Foot ulcer, left, with unspecified severity (HC) Hospital bed with rails: Electric, Length of need 99 months. Diagnosis: foot ulcer with need to elevated foot of bed. 1 unit 01/31/2018 Active bisacodyl (DULCOLAX) 5 mg tabletIndications:Ch ronic constipation Take 2 tablets by mouth once daily. Tuesday, Tuesday, Tuesday and Tuesday. 0 02/02/2018 Active CPAPIndications:Obst ructive sleep apnea CPAP machine for home use at pressure: 8 cm/H2O , Heated humidifier x 1, Humidifier chamber x 1, 1 unit 11 07/27/2018 Active warfarin (COUMADIN) 5 mg tabletIndications:An ticoagulation management encounter Take 1 tablet by mouth once daily. 90 tablet 3 11/16/2018 Active cholecalciferol (D3-2000) 2,000 unit capsuleIndications:V itamin D deficiency Take 1 capsule by mouth once daily. 90 capsule 3 11/16/2018 Active durable medical equipment (DME)Indications:Gai t instability Walker with seat 1 Each 12/01/2018 Active ammonium lactate 12% topical (LACHYDRIN) 12 % lotionIndications:Dr cammie renee,Type 2 diabetes mellitus with pressure callus (HC) Apply topically to affected area(s) 2 times daily. 396 g 5 12/29/2021 Active b complex-vitamin c-folic acid 1 mg (Triphrocaps) 1 mg capsuleIndications:C KD (chronic kidney disease), stage IV (HC) Take [...] UNITS by IV Push route dialysis. Active atorvastatin (LIPITOR) 20 mg tabletIndications:Mi xed hyperlipidemia Take 1 Tablet (20 mg) by mouth once daily. 90 Tablet 3 11/08/2023 Active Diaper,Brief, Adult,DisposableIndi cations:Incontinence for home use 119 Each 12 11/19/2023 Active metoprolol tartrate (LOPRESSOR) 100 mg tabletIndications:Hy pertension, unspecified type Take 1 Tablet (100 mg) by mouth once daily. 03/20/2024 Active amLODIPine (NORVASC) 5 mg tabletIndications:HT N (hypertension) Take 1 Tablet (5 mg) by mouth once daily. 03/20/2024 Active Calcium Acetate (PHOS-LO) 667 mg capsuleIndications:E SRD (end stage renal disease) (HC) Take 1 Capsule (667 mg) by mouth four times daily with meals and at bedtime. 03/20/2024 Active pantoprazole (PROTONIX) 40 mg delayed-release tabletIndications:Ch ronic GERD Take 1 Tablet (40 mg) by mouth two times daily before meals. 180 Tablet 3 03/20/2024 Active sennosides (SENNA) 8.6 mg tabletIndications:Ch ronic constipation Take 2 Tablets (17.2 mg) by mouth two times daily. 360 Tablet 3 03/20/2024 Active Active Problems Problem Noted Date Diagnosed Date Dependence on renal dialysis 11/08/2023 Chronic constipation 06/23/2022 Impaired cognition 09/05/2020 Type 2 diabetes mellitus wit h kidney complication, without long-term current use of insulin 09/30/2016 Subclinical hyperthyroidism 05/24/2015 Vitamin D deficiency 05/21/2015 Mixed hyperlipidemia 07/25/2012 DVT of upper extremity (deep vein thrombosis) lobsterman (current) use of anticoagulants 2010 Secondary hyperparathyroidism [...] Encounters Date Type Department Care Team Description 05/21/2024 Nurse Triage [facility] [address] [place] [address] Preet Huff MD Testicle Pain 03/20/2024 11:45 AM CDT Office Visit [facility] [address] [place] [address] Preet Huff MD Hospital F/U ([facility], 02/24/2024 - 02/26/2024, 03/02/2024 - 03/12/2024, GI Bleed) 03/20/2024 Travel from Last 3 Months Immunizations Name Administration [...] of Communication with Friends and Fami ly 0 03/20/2024 Financial Resource Strain Answer Date R ecorded Difficulty of Paying Living Expenses 3 03/20/2024 Difficulty of Paying Living Expenses Not on file 03/20/2024 Food Insecurity Answer Date Recorded Worried About Running Out of Food in the Last Ye ar 1 03/20/2024 Transportation Needs Answer Date Record ed Lack of Transportation (Medical) 1 03/20/2024 Housing Stability Answer Date Recorded Unable to Pay for Housing in the Last Year 1 03/20/2024 Sex and Gender Information Value Date Recorded Sex Assigned at Not on file Gender Identity Not on file Sexual Orientation Not on file Obstetrics History Last Filed Vital Signs Vital Sign Reading Time Taken Comments Blood Pressure 145/69 03/20/2024 11:09 AM CDT Pulse 67 03/20/2024 11:09 AM CDT Temperature 36.9 ??C (98.4 ??F) 05/22/2020 1:36 PM CD T Respiratory Rate 18 06/07/2018 11:08 AM CDT Oxygen Saturation 100% 03/20/2024 11:09 AM CDT Inhaled Oxygen Concentration - - Weight 86.8 kg (191 lb 6.4 oz) 03/20/2024 11:09 AM CDT Height 172.3 cm (5' 7.84) 11/08/2023 2:26 PM CS T Body Mass Index 29.24 11/08/2023 2:26 PM RN INTERVENTIONAL Plan of Treatment Upcoming Encounters Date Type Department Care Team (Late st Contact Info) Description 06/05/2024 11:00 AM CDT Ancillary Procedure [facility] [address] [place] [address] 06/07/2024 2:30 PM CDT Office Visit [facility] [address] [place] [address] Lizandro Singh MD [address] [place] [address] Health Maintenance Due Date Last Done Comments Zoster (shingles) series for age 50+ (1 of 2) 2013 Pneumococcal series for age 6-64 (3 of 3 - PPSV23 or PCV20) 03/14/2019 01/17/2019, 12/02/2015, 10/12/2010, Additional history exists Tetanus booster 10/21/2019 10/21/2009 Depression screening for age 12+ 08/13/2020 08/13/2019, 03/15/2017, 02/06/2016 COVID-19 vaccine series ( season) 2023 06/23/2022, 01/13/2022, 08/17/2021, Additional history exists Influenza for age 50-64 06/10/2024 06/23/20 22, 06/23/2022, 08/05/2021, Additional history exists BMI (ht and wt on same day) for age 18+ 11/08/2024 11/08/2023, 06/23/2022, 03/17/2021, Additional history exists Lipids for age 45-75 11/08/2028 11/08/2023, 11/18/2021, 09/05/2020, Additional history exists Colonoscopy through age 75 03/08/203403/08 (Verified in Care Everywhere or Patient Record), 09/24/2013, 09/24/2013 HIV for age 15-65 Completed 03/04/2009 Hepatitis C screening for ag e 18-79 Completed 03/04/2009 Tdap Completed 10/21/2009 Medical Devices Implanted Type Area Fire Alarm Inspector Device Identifier Shelf Expiration Date Model / Serial / Lot Cath Peritoneal Cvd 62cm - [id number] Implanted:Qty: 1 on 10/31/2009 at [facility] N/A: Abdomen STIVEN 05/10/2014 [id number] 10 # / / [id number] Procedures Procedure Name Priority Date/Time Associated Diagnosis Comments LIPID PANEL W REFLEX MEASURED LDL Routine 11/08/2023 3:05 PM RN INTERVENTIONAL Mixed hyperlipidemia COLONOSCOPY SCREENING Routine 09/24/2013 12:00 AM RN INTERVENTIONAL Colon cancer screening ANTI HIV 1/2 Timed 03/04/2009 10:05 AM CDT Pre-Transplant Evaluation for End Stage Renal Disease ANTI HCV Timed 03/04/2009 10:05 AM CDT Pre-Transplant Evaluation for End Stage Renal Disease from Last 3 Months or Most Recently Relevant to Health Maintenance Results * (ABNORMAL) LIPID PANEL W REFLEX MEASURED LDL (11/08/2023 3:05 PM RN INTERVENTIONAL) CHOLESTEROL,TOTAL 90(L) 100 - 199 mg/dL 11/09/2023 10:41 AM [facility] Comment: Cholesterol, Total Reference Ranges Desirable <200 mg/dL Borderline 200-239 mg/dL High >=240 mg/dL TRIGLYCERIDES 104 <150 mg/dL 11/09/2023 10:41 AM [facility] HDL CHOLESTEROL 30(L) >40 mg/dL 10:41 AM RN INTERVENTIONAL [facility] NON-HDL CHOLESTEROL 60 <145 mg/dl 11/09/2023 10:41 AM [facility] CHOL/HDL RATIO 3.00 <4.50 11/09/2023 10:41 AM [facility] LDL CHOLESTEROL 39 <=130 mg/dL 11/09/2023 10:41 AM [facility] VLDL CHOLESTEROL 21 <=30 mg/dL 11/09/2023 10:41 AM [facility] PROVIDER ORDERED STATUS RANDOM 11/09/2023 10:41 AM [facility] Blood BLOOD SPECIMEN / Unknown Butterfly / Unknown 11/08/2023 3:05 PM RN INTERVENTIONAL 11/08/2023 3:08 PM RN INTERVENTIONAL Preet Huff MD CHEMISTRY [facility] [address] [place] [address], * COLONOSCOPY SCREENING (09/24/2013 12:00 AM RN INTERVENTIONAL) Narrative 09/24/2013 12:00 AM RN INTERVENTIONAL Procedure Note Scanner - 09/24/2013 12:00 AM CST Preet Huff MD GI PROCEDURE O RD * ANTI HCV (03/04/2009 10:05 AM CDT) ANTI HCV Non-reacti ve [facility] Blood specimen (specimen) BLOOD SPECIMEN / Unknown 03/04/2009 10:05 AM CDT 03/04/2009 9:57 AM CDT Alfredo Juarez MD SEND OUTS [facility] INTERNAL ZIP [address] [place] [address] * ANTI HIV 1/2 (03/04/2009 10:05 AM CDT) ANTI HIV 1/2 Non-reacti ve [facility] Blood specimen (specimen) BLOOD SPECIMEN / Unknown 03/04/2009 10:05 AM CDT 03/04/2009 9:57 AM CDT Alfredo Juarez MD SEND OUTS [facility] INTERNAL ZIP [address] [place] [address] from Last 3 Months or Most Recently Relevant to Health Maintenance Advance Directives Documents on File Type Date Recorded Patient Water Service Dispatcher Expl anation Power of Supervisor Policy Change Clerks 09/04/2014 12:00 AM 07/2009 * Full Code [...] 5:57 PM 03/16/2009 5:32 PM Care Teams Diesel Scoop Operator Relationship Specialty Start Date End Date Preet Huff [place] [address] PCP - General 12/02/06
--- OUTSIDE RECORDS SUMMARY | 2024-05-24 23:42 | XMS_ITS | Encounter Summary ---
Author Organization [facility] Address [address] [place] [address] Phone Care Team Providers Care Sealer Sander Name Role Phone Preet Huff MD Primary Care Provider [phone] Reason for Visit * Reason Comments Med Refill Encounter Details Date Type Department Care Team (Late st Contact Info) Description 02/12/2021 Refill [facility] [address] [facility] [address] [place], [place] [address] María Elena Styles PA [address] [place] [address] Social History Tobacco Use Types Packs/Day Years Used Date Smoking Tobacco: Never Assessed Sex and Gender Information Value Date Recorded Sex Assigned at Not on file Gender Identity Not on file Sexual Orientation Not on file documented as of this encounter Plan of Treatment Not on file documented as of this encounter Visit Diagnoses Not on filedocumented in this encounter Care Teams Sealer Sander Relationship Specialty Start Date End Date Preet Huff MD [address] [place] [phone] PCP - General 10/31/19 documented as of this encounter
--- OUTSIDE RECORDS SUMMARY | 2024-05-24 23:42 | XMS_ITS | Clinical Summary ---
Author Organization [facility] Address [address] [place] [address] Care Team Providers Care Back Tufter Name Role Phone Preet Huff Primary Care Provider Allergies Active Allergy Reactions Criticality Noted Date Comments Aspirin GI Disturbance,Rash Low 10/15/2009 PN: LW Reaction: unknown Dihydroxyaluminum Aminoacetate Nausea Medium 07/16/2011 GI bleeding Medications Medication Sig Dispensed Refills Start Date End Date Status atorvastatin (LIPITOR) 20 MG tabletIndications:Mix ed hyperlipidemia Take 1 tablet (20 mg) by mouth every evening 30 tablet 3 8 05/23/20 24 Discontinued( Med Rec(No AVS / No eCancel)) amLODIPine (NORVASC) 5 MG tablet Take 5 mg by mouth daily 05/23/20 24 Discontinued( Med Rec(No AVS / No eCancel)) calcium acetate (PHOSLO) 667 MG CAPS capsule Take 1 capsule (667 mg)by mouth 3 times daily with meals Suspended calcium acetate (PHOSLO) 667 MG CAPS capsule Take 1 capsule (667 mg) once daily with a snack Suspended metoprolol tartrate (LOPRESSOR) 100 MG tablet Take 100 mg by mouth every evening Suspended warfarin ANTICOAGULANT (COUMADIN) 5 MG tablet Take 1 tablet (5 mg) by mouth Tuesday through Tuesday, no dose on Sat and Sun Suspended B Vwvwwlv-[id number]-Njvrp Acid (WESCAPS PO) Take 1 capsule by mouth every evening Suspended sennosides (SENOKOT) 8.6 MG tablet Take 2 tablets by mouth every other day Suspended blood glucose monitoring (NO BRAND SPECIFIED) meter device kitIndications:Hypogl ycemia Use to test blood sugar 4 times daily or as directed. 1 kit 4 05/23/20 24 Discontinued( Med Rec(No AVS / No eCancel)) blood glucose (NO BRAND SPECIFIED) test stripIndications:Hypo glycemia Use to test blood sugar 4 times daily or as directed. 100 strip 6 4 05/23/20 24 Discontinued( Med Rec(No AVS / No eCancel)) thin (NO BRAND SPECIFIED) lancetsIndications:Hy poglycemia Use with lanceting device. 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 Black stool 03/02/2024 ESRD on dialysis 02/24/2024 Altered mental status, [...] Encounters Date Type Department Care Team Description 05/23/2024 6:02 PM CDT Anesthesia Event [facility] PeriOp [facility] [address] [place] [address] Tom Castro MD Larson, Matthew Ray, MD 05/23/2024 6:00 PM CDT - 05/23/2024 7:00 PM CDT Surgery [facility] [address] [place] [address] Lizandro Barron MD Incision and drainage, debridement of scrotal skin and subcutaneous tissues for necrotizing soft tissue infection of the scrotum 05/23/2024 1:14 PM CDT - Present Hospital Encounter [facility] 5 Medical Surgical [address] [place] [address] Vi Hernandez DO Cabrera, Jesus F, MD Supratherapeutic INR; 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 Travel 03/08/2024 12:20 PM CDT - 03/08/2024 12:50 PM CDT Surgery [facility] [address] [place] [address] Eileen Earl MD Colonoscopy with polypectomy by cold biopsy forceps 03/06/2024 2:08 PM CDT Anesthesia Event [facility] [address] [place] [address] Nohemy Skinner MD 03/06/2024 1:00 PM CDT - 03/06/2024 2:10 PM CDT Surgery [facility] [address] [place] [address] Eileen Earl MD ESOPHAGOGASTRODUODENOSCOPY 03/02/2024 1:54 PM CDT - 03/12/2024 4:36 PM CDT Hospital Encounter [facility] 5 Medical Surgical [address] [place] [address] Raúl Bernard MD Biala, Vivek, MD Hypoglycemia (Primary Dx); Anemia, unspecified type; Black stool; Gastrointestinal hemorrhage, unspecified gastrointestinal hemorrhage type Discharge Disposition: Home-Health Care Svc 03/02/2024 Travel 02/25/2024 2:50 PM CDT - 02/25/2024 3:25 PM CDT Surgery [facility] [address] [place] [address] Momo Hercules MD Esophagoscopy, gastroscopy, duodenoscopy (EGD), combined 02/24/2024 9:38 AM CDT - 02/26/2024 3:30 PM CDT Hospital Encounter [facility] 3 Medical Surgical [address] [place] [address] Jae Noel MD Blomquist, Katherine, DO Anemia, [...] file Gender Identity Male 12/05/2017 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 Sexual Orientation Not on file Last Filed Vital Signs Vital Sign Reading Time Taken Comments Blood Pressure 124/44 05/24/2024 4:04 PM CDT Pulse 79 05/24/2024 4:04 PM CDT Temperature 36.8 ??C (98.3 ??F) 05/24/2024 4:04 PM CD T Respiratory Rate 16 05/24/2024 4:04 PM CDT Oxygen Saturation 100% 05/24/2024 9:25 PM CDT Inhaled Oxygen Concentration - - Weight 83.9 kg (185 lb) 05/23/2024 1:21 PM CDT Height 162.6 cm (5' 4) 05/23/2024 1:21 PM CDT Body Mass Index 31.76 05/23/2024 1:21 PM CDT Plan of Treatment Health Maintenance Due Date Last Done Comments ADVANCE CARE PLANNING 1963 ANNUAL REVIEW OF HM ORDERS 1963 CT COLONOGRAPHY 1963 FLEX SIG 1963 PARATHYROID 1963 sDNA (Cologuard) 1963 HIV SCREENING 1978 MEDICARE ANNUAL WELLNESS VISIT 1981 ZOSTER IMMUNIZATION (1 of 2) 1982 LIPID 12/07/2018 12/07/2017 Pneumococcal Vaccine: Pediatrics (0 to 5 Years) and At-Risk Patients (6 to 64 Years) (3 of 3 - PPSV23 or PCV20) 03/14/2019 01/17/2019, 12/02/2015, 10/12/2010, Additional history exists DTAP/TDAP/TD IMMUNIZATION (2 - Td or Tdap) 10/21/2019 10/21/2009, 10/21/2009 RSV VACCINE ( & 60+) (1 - 1-dose 60+ series) 2023 COVID-19 Vaccine (6 - 2022-24 season) 2023 06/23/2022, 01/13/2022, 08/17/2021, Additional history exists HEPATITIS B IMMUNIZATION (10 of 10 - Risk Dialysis 4-dose series) 09/06/2023 09/06/2022, 11/07/2013, 09/25/2013, Additional history exists PHQ-2 (once per calendar year) 2023 01/15/2016 INFLUENZA VACCINE (#1) 2024 , 08/05/2021, 07/11/2020, Additional history exists BMP 08/24/2024 05/24/2024, 05/10, 03/12/2024, Additional history exists HEMOGLOBIN 11/24/2024 05/24/2024, 05/10, 03/12/2024, Additional history exists FIT 02/23/2025 02/24/2024, 06/14/2014 GLUCOSE 05/24/2027 05/24/2024, 05/10, 05/24/2024, Additional history exists COLONOSCOPY 03/08/2034 03/08/2024, 02/09, 09/24/2013, Additional history exists COLORECTAL CANCER SCREENING 03/08/2034 HEPATITIS C SCREENING Completed 01/04/2022 PHOSPHORUS Completed 03/12/2024, 11/2023, 03/10/2024, Additional history exists ALK PHOS Completed 05/24/2024, 05/10, 03/05/2024, Additional history exists HPV IMMUNIZATION Aged Out [...] this topic Medical Devices Implanted Type Area Internet Sales Manager Device Identifier Shelf Expiration Date Model / Serial / Lot Graft Patch Vasc Xenosure Biologic 0.8x08cm 0.8p8 Implanted:Qty: 1 on 12/16/2017 by Jaxon Saravia MD at [facility] Bone/Tis rocco/Biol ogic Left: Iliac/Fem orals [employer] IN 06/06/2023 0.8P8 / / [id number] Graft Pericardium 8x0.8cm Vascu-Guard Implanted:Qty: 1 on 10/20/2011 at [facility] Right: Arm [employer] 01/16/2016 [id number] / / [id number] Femoral Popliteal Artery Implanted:Qty: 1 on 05/03/2012 by Jaxon Saravia MD at [facility] Right: Groin 12/07/2021 [id number] / [id number] / Description:CADAVER FEMORAL ARTERY RINSED IN A AND B SOLUTION: A SOLUTION LOT #[id number] EXPIRATION DATE 01/09/2014 B SOLUTION LOT #[id number] EXPIRATION DATE 11/15/2013 Graft Propaten Taper 4-2gar80xs [id number] Implanted:Qty: 1 on 08/09/2012 by Jaxon Saravia MD at [facility] Right: Leg 10/24/2015 [id number] / / [id number] Graft Propaten Taper [id number] Implanted:Qty: 1 on 06/20/2013 by Jaxon Saravia MD at [facility] Left: Groin [employer] 02/07/2017 [id number] / / [id number] Graft Pericardium 8x0.8cm Vascu-Guard Implanted:Qty: 1 on 05/08/2014 by Jaxon Saravia MD at [facility] Left: Leg [employer] 11/26/2018 [id number] / PN# [id number] / [id number] Procol Vascular Bioprosthesis Implanted:Qty: 1 on 07/02/2015 by Jaxon Saravia MD at [facility] Left: Groin 12/16/2018 [id number] -[id number] / [id number] / Procol Vascular Bioprosthesis Implanted:Qty: 1 on 08/13/2015 by Jaxon Saravia MD at [facility] Left: Groin 12/16/2018 [id number] -[id number] / [id number] / Graft Vasc Bioprosthesis Procol [id number] Implanted:Qty: 1 on 03/05/2016 by Jaxon Saravia MD at [facility] Left: Leg [employer] IN 02/03/2019 [id number] -[id number] / [id number] / Procedures The patient is currently admitted. The information in this section might not be complete until the patient is discharged. Procedure Name Priority Date/Time Associated Diagnosis Comments GLUCOSE BY METER Routine 05/24/2024 8:52 PM CDT GLUCOSE BY METER Routine 05/24/2024 5:05 PM CDT INR Timed 05/24/2024 2:16 PM CDT GLUCOSE BY METER Routine 05/24/2024 12:2 0 PM CDT GLUCOSE BY METER Routine 05/24/2024 9:12 AM CDT CBC WITH PLATELETS & DIFFERENTIAL Routine 05/24/2024 6:09 AM CDT CBC WITH PLATELETS AND DIFFERENTIAL Routine 05/24/2024 6:09 AM CDT COMPREHENSIVE METABOLIC PANEL Routine 05/24/2024 6:09 AM CDT INR Timed 05/24/2024 6:09 AM CDT GLUCOSE BY METER Routine 05/24/2024 4:49 AM CDT GLUCOSE BY METER Routine 05/24/2024 1:13 AM CDT INR Timed 05/23/2024 10:19 PM CDT GLUCOSE BY METER Routine 05/23/2024 9:58 PM CDT GLUCOSE BY METER Routine 05/23/2024 9:06 PM CDT GLUCOSE BY METER Routine 05/23/2024 8:41 PM CDT GLUCOSE BY METER Routine 05/23/2024 7:55 PM CDT AEROBIC BACTERIAL CULTURE ROUTINE Routine 05/23/2024 6:42 PM CDT GRAM STAIN Routine 05/23/2024 6:42 PM CDT ANAEROBIC BACTERIAL CULTURE ROUTINE Routine 05/23/2024 6:42 PM CDT ANE AIRWAY ETT PERFORMABLE Routine 05/23/2024 6:21 PM CDT INCISION AND DRAINAGE, ABSCESS, SCROTUM 05/23/2024 6:06 PM CDT Supratherapeutic INR Mita's gangrene of scrotum (H28) GLUCOSE BY METER Routine 05/23/2024 5:41 PM CDT EKG 12-LEAD, TRACING ONLY STAT 05/23/2024 5:08 PM CDT INR STAT 05/23/2024 3:[address] ABDOMEN PELVIS W CONTRAST STAT 05/23/2024 2:19 PM CDT ABO/RH TYPE AND SCREEN STAT 05/23/2024 2:07 PM CDT TYPE AND SCREEN, ADULT STAT 05/23/2024 2:07 PM CDT CBC WITH PLATELETS & DIFFERENTIAL STAT 05/23/2024 1:50 PM CDT BLOOD CULTURE STAT 05/23/2024 1:50 PM CDT CBC WITH PLATELETS AND DIFFERENTIAL STAT 05/23/2024 1:50 PM CDT LACTIC ACID WHOLE BLOOD STAT 05/23/2024 1:50 PM CDT COMPREHENSIVE METABOLIC PANEL STAT 05/23/2024 1:50 PM CDT INR STAT 05/23/2024 1:50 PM CDT GLUCOSE BY METER Routine 03/12/2024 12:0 0 PM CDT GLUCOSE BY METER Routine 03/12/2024 7:51 AM CDT GLUCOSE Routine 03/12/2024 6:06 AM CDT HEMOGLOBIN Timed 03/12/2024 6:06 AM CDT RENAL PANEL Routine 03/12/2024 6:06 AM CDT INR Routine 03/12/2024 6:06 AM CDT GLUCOSE BY METER Routine 03/12/2024 1:55 AM CDT GLUCOSE BY METER Routine 03/11/2024 9:11 PM CDT HEMOGLOBIN Timed 03/11/2024 6:10 PM CDT GLUCOSE BY METER Routine 03/11/2024 5:31 PM CDT GLUCOSE BY METER Routine 03/11/2024 11:4 7 AM CDT GLUCOSE BY METER Routine 03/11/2024 7:36 AM CDT CBC WITH PLATELETS Routine 03/11/2024 7: 03 AM CDT RENAL PANEL Routine 03/11/2024 7:03 AM CDT INR Routine 03/11/2024 7:03 AM CDT XR CHEST PORT 1 VIEW STAT 03/11/2024 3:25 AM CDT GLUCOSE BY METER Routine 03/11/2024 3:03 AM CDT GLUCOSE BY METER Routine 03/11/2024 1:57 AM CDT GLUCOSE BY METER Routine 03/10/2024 9:04 PM CDT CONDITIONAL TRANSFUSE RED BLOOD CELLS (UNIT) Routine 03/10/2024 8:45 PM CDT ABO/RH TYPE AND SCREEN STAT 03/10/2024 6:53 PM CDT TYPE AND SCREEN, ADULT STAT 03/10/2024 6:53 PM CDT CONDITIONAL PREPARE RED BLOOD CELLS (UNIT) Routine 03/10/2024 6:37 PM CDT HEMOGLOBIN Timed 03/10/2024 6:00 PM CDT GLUCOSE BY METER Routine 03/10/2024 4:49 PM CDT GLUCOSE BY METER Routine 03/10/2024 2:35 PM CDT GLUCOSE BY METER Routine 03/10/2024 1:28 PM CDT GLUCOSE BY METER Routine 03/10/2024 12:3 5 PM CDT GLUCOSE BY METER Routine 03/10/2024 11:2 8 AM CDT GLUCOSE BY METER Routine 03/10/2024 10:3 5 AM CDT GLUCOSE BY METER Routine 03/10/2024 8:32 AM CDT HEMOGLOBIN Timed 03/10/2024 7:46 AM CDT RENAL PANEL Routine 03/10/2024 7:46 AM CDT INR Routine 03/10/2024 7:46 AM CDT GLUCOSE BY METER Routine 03/10/2024 3:38 AM CDT GLUCOSE BY METER Routine 03/10/2024 12:0 5 AM CDT HEMOGLOBIN Timed 03/09/2024 11:50 PM CDT GLUCOSE BY METER Routine 03/09/2024 8:25 PM CDT HEMOGLOBIN Timed 03/09/2024 7:13 PM CDT GLUCOSE BY METER Routine 03/09/2024 4:12 PM CDT HEMOGLOBIN Timed 03/09/2024 2:16 PM CDT GLUCOSE BY METER Routine 03/09/2024 1:35 PM CDT BLOOD MORPHOLOGY PATHOLOGIST REVIEW STAT 03/09/2024 9:12 AM CDT BLOOD MORPHOLOGY PATHOLOGIST REVIEW STAT 03/09/2024 9:12 AM CDT MORPHOLOGY TRACKING STAT 03/09/2024 9 :12 AM CDT RETICULOCYTE COUNT STAT 03/09/2024 9: 12 AM CDT CBC WITH PLATELETS AND DIFFERENTIAL STAT 03/09/2024 9:12 AM CDT HAPTOGLOBIN STAT 03/09/2024 9:12 AM CDT BILIRUBIN DIRECT AND TOTAL STAT 03/09/2024 9:12 AM CDT LACTATE DEHYDROGENASE STAT 03/09/2024 9:12 AM CDT INR Routine 03/09/2024 9:12 AM CDT GLUCOSE BY METER Routine 03/09/2024 7:55 AM CDT RENAL PANEL Routine 03/09/2024 5:49 AM CDT HEMOGLOBIN Timed 03/09/2024 5:49 AM CDT GLUCOSE BY METER Routine 03/09/2024 4:31 AM CDT GLUCOSE BY METER Routine 03/09/2024 12:2 6 AM CDT HEMOGLOBIN Timed 03/08/2024 10:35 PM CDT GLUCOSE BY METER Routine 03/08/2024 10:0 9 PM CDT GLUCOSE BY METER Routine 03/08/2024 8:11 PM CDT GLUCOSE BY METER Routine 03/08/2024 5:59 PM CDT GLUCOSE BY METER Routine 03/08/2024 5:28 PM CDT GLUCOSE BY METER Routine 03/08/2024 5:02 PM CDT GLUCOSE BY METER Routine 03/08/2024 4:36 PM CDT GLUCOSE BY METER Routine 03/08/2024 3:59 PM CDT HEMOGLOBIN Timed 03/08/2024 2:42 PM CDT GLUCOSE BY METER Routine 03/08/2024 2:16 PM CDT GLUCOSE BY METER Routine 03/08/2024 1:56 PM CDT GLUCOSE BY METER Routine 03/08/2024 1:36 PM CDT SURGICAL PATHOLOGY EXAM Routine 03/08/2024 1:26 PM CDT COLONOSCOPY Routine 03/08/2024 1:04 PM CDT COLONOSCOPY, WITH POLYPECTOMY AND BIOPSY 03/08/2024 12:29 PM CDT Anemia, unspecified type GLUCOSE BY METER Routine 03/08/2024 11:3 5 AM CDT GLUCOSE BY METER Routine 03/08/2024 11:1 1 AM CDT GLUCOSE BY METER Routine 03/08/2024 8:50 AM CDT CONDITIONAL TRANSFUSE RED BLOOD CELLS (UNIT) Routine 03/08/2024 8:05 AM CDT CONDITIONAL PREPARE RED BLOOD CELLS (UNIT) Routine 03/08/2024 7:50 AM CDT HEMOGLOBIN Timed 03/08/2024 6:25 AM CDT RENAL PANEL Routine 03/08/2024 6:25 AM CDT INR Routine 03/08/2024 6:25 AM CDT GLUCOSE BY METER Routine 03/08/2024 6:00 AM CDT GLUCOSE BY METER Routine 03/08/2024 3:08 AM CDT GLUCOSE BY METER Routine 03/08/2024 2:01 AM CDT HEMOGLOBIN Timed 03/08/2024 1:12 AM CDT US UPPER EXTREMITY VENOUS DUPLEX RIGHT STAT 03/07/2024 10:13 PM CDT GLUCOSE BY METER Routine 03/07/2024 9:31 PM CDT HEMOGLOBIN Timed 03/07/2024 6:58 PM CDT GLUCOSE BY METER Routine 03/07/2024 6:56 PM CDT GLUCOSE BY METER Routine 03/07/2024 5:03 PM CDT MIDLINE SINGLE LUMEN PLACEMENT Routine 03/07/2024 1:34 PM CDT GLUCOSE BY METER Routine 03/07/2024 11:3 0 AM CDT GLUCOSE BY METER Routine 03/07/2024 8:49 AM CDT HEMOGLOBIN Timed 03/07/2024 6:21 AM CDT RENAL PANEL Routine 03/07/2024 6:21 AM CDT INR Routine 03/07/2024 6:21 AM CDT GLUCOSE BY METER Routine 03/07/2024 6:19 AM CDT GLUCOSE BY METER Routine 03/07/2024 4:05 AM CDT HEMOGLOBIN Timed 03/07/2024 1:04 AM CDT GLUCOSE BY METER Routine 03/07/2024 12:4 0 AM CDT GLUCOSE BY METER Routine 03/06/2024 9:36 PM CDT EXTRA SERUM SEPARATOR TUBE (SST) Routine 03/06/2024 7:55 PM CDT EXTRA TUBE Routine 03/06/2024 7:55 PM CDT GLUCOSE BY METER Routine 03/06/2024 6:37 PM CDT CBC WITH PLATELETS & DIFFERENTIAL STAT 03/06/2024 4:28 PM CDT CBC WITH PLATELETS AND DIFFERENTIAL STAT 03/06/2024 4:28 PM CDT GLUCOSE STAT 03/06/2024 4:28 PM CDT BASIC METABOLIC PANEL STAT 03/06/2024 4:28 PM CDT HEMOGLOBIN Timed 03/06/2024 4:28 PM CDT GLUCOSE BY METER Routine 03/06/2024 4:26 PM CDT GLUCOSE BY METER Routine 03/06/2024 4:17 PM CDT GLUCOSE BY METER Routine 03/06/2024 4:10 PM CDT GLUCOSE BY METER Routine 03/06/2024 3:18 PM CDT GLUCOSE BY METER Routine 03/06/2024 3:03 PM CDT UGI ENDOSCOPY DIAG W OR W/O BRUSH/WASH 03/06/2024 2:09 PM CDT Anemia, unspecified type Gastrointestinal hemorrhage, unspecified gastrointestinal hemorrhage type HEMOGLOBIN STAT 03/06/2024 1:23 PM CDT UPPER GI ENDOSCOPY Routine 03/06/2024 1: 21 PM CDT GLUCOSE BY METER Routine 03/06/2024 12:2 6 PM CDT GLUCOSE BY METER Routine 03/06/2024 12:0 1 PM CDT TRANSFUSE RED BLOOD CELLS (UNIT) Routine 03/06/2024 9:54 AM CDT ABO/RH TYPE AND SCREEN STAT 03/06/2024 8:53 AM CDT TYPE AND SCREEN, ADULT STAT 03/06/2024 8:53 AM CDT GLUCOSE BY METER Routine 03/06/2024 7:57 AM CDT PREPARE RED BLOOD CELLS (UNIT) STAT 03/06/2024 7:50 AM CDT RENAL PANEL Routine 03/06/2024 6:54 AM CDT HEMOGLOBIN Timed 03/06/2024 6:54 AM CDT INR Routine 03/06/2024 6:54 AM CDT GLUCOSE BY METER Routine 03/06/2024 4:05 AM CDT GLUCOSE BY METER Routine 03/06/2024 12:0 1 AM CDT GLUCOSE BY METER Routine 03/05/2024 10:0 1 PM CDT HEMOGLOBIN Timed 03/05/2024 6:53 PM CDT GLUCOSE BY METER Routine 03/05/2024 5:47 PM CDT CONDITIONAL TRANSFUSE RED BLOOD CELLS (UNIT) Routine 03/05/2024 1:00 PM CDT CONDITIONAL PREPARE RED BLOOD CELLS (UNIT) Routine 03/05/2024 12:47 PM CDT HEMOGLOBIN Timed 03/05/2024 12:12 PM CDT GLUCOSE BY METER Routine 03/05/2024 12:0 6 PM CDT GLUCOSE BY METER Routine 03/05/2024 7:58 AM CDT COMPREHENSIVE METABOLIC PANEL Routine 03/05/2024 7:35 AM CDT CBC WITH PLATELETS Routine 03/05/2024 7: 35 AM CDT HEMOGLOBIN Timed 03/05/2024 7:35 AM CDT INR Routine 03/05/2024 7:35 AM CDT GLUCOSE BY METER Routine 03/05/2024 4:09 AM CDT GLUCOSE BY METER Routine 03/05/2024 3:22 AM CDT GLUCOSE BY METER Routine 03/05/2024 12:0 7 AM CDT GLUCOSE BY METER Routine 03/04/2024 9:37 PM CDT GLUCOSE BY METER Routine 03/04/2024 8:34 PM CDT POTASSIUM Routine 03/04/2024 6:29 PM CDT HEMOGLOBIN Timed 03/04/2024 6:29 PM CDT GLUCOSE BY METER Routine 03/04/2024 5:44 PM CDT GLUCOSE BY METER Routine 03/04/2024 3:12 PM CDT GLUCOSE BY METER Routine 03/04/2024 1:46 PM CDT GLUCOSE BY METER Routine 03/04/2024 1:09 PM CDT GLUCOSE BY METER Routine 03/04/2024 11:5 9 AM CDT GLUCOSE BY METER Routine 03/04/2024 10:4 7 AM CDT GLUCOSE BY METER Routine 03/04/2024 8:58 AM CDT GLUCOSE BY METER Routine 03/04/2024 7:03 AM CDT COMPREHENSIVE METABOLIC PANEL Add-On 03/04/2024 6:45 AM CDT CBC WITH PLATELETS Add-On 03/04/2024 6: 45 AM CDT CORTISOL Routine 03/04/2024 6:45 AM CDT HEMOGLOBIN Timed 03/04/2024 6:45 AM CDT GLUCOSE BY METER Routine 03/04/2024 5:08 AM CDT GLUCOSE BY METER Routine 03/04/2024 3:28 AM CDT GLUCOSE BY METER Routine 03/04/2024 2:12 AM CDT GLUCOSE BY METER Routine 03/04/2024 12:2 5 AM CDT HEMOGLOBIN Timed 03/03/2024 9:40 PM CDT GLUCOSE BY METER Routine 03/03/2024 8:13 PM CDT GLUCOSE BY METER Routine 03/03/2024 6:23 PM CDT GLUCOSE BY METER Routine 03/03/2024 5:39 PM CDT GLUCOSE BY METER Routine 03/03/2024 5:11 PM CDT GLUCOSE BY METER Routine 03/03/2024 4:39 PM CDT GLUCOSE BY METER Routine 03/03/2024 4:17 PM CDT GLUCOSE BY METER Routine 03/03/2024 2:11 PM CDT HEMOGLOBIN Timed 03/03/2024 2:07 PM CDT GLUCOSE BY METER Routine 03/03/2024 11:5 9 AM CDT GLUCOSE BY METER Routine 03/03/2024 11:3 6 AM CDT GLUCOSE BY METER Routine 03/03/2024 11:1 4 AM CDT GLUCOSE BY METER Routine 03/03/2024 10:5 1 AM CDT GLUCOSE BY METER Routine 03/03/2024 10:3 0 AM CDT HEMOGLOBIN Timed 03/03/2024 6:10 AM CDT INR Routine 03/03/2024 6:10 AM CDT CBC WITH PLATELETS Routine 03/03/2024 6: 10 AM CDT BASIC METABOLIC PANEL Routine 03/03/2024 6:10 AM CDT GLUCOSE BY METER Routine 03/03/2024 5:27 AM CDT GLUCOSE BY METER Routine 03/03/2024 4:16 AM CDT GLUCOSE BY METER Routine 03/03/2024 2:40 AM CDT GLUCOSE BY METER Routine 03/03/2024 1:38 AM CDT GLUCOSE BY METER Routine 03/03/2024 12:3 4 AM CDT CONDITIONAL TRANSFUSE RED BLOOD CELLS (UNIT) Routine 03/02/2024 10:55 PM CDT HEMOGLOBIN Timed 03/02/2024 10:17 PM CDT GLUCOSE BY METER Routine 03/02/2024 9:34 PM CDT GLUCOSE BY METER Routine 03/02/2024 9:01 PM CDT GLUCOSE BY METER Routine 03/02/2024 8:26 PM CDT GLUCOSE BY METER Routine 03/02/2024 8:01 PM CDT GLUCOSE BY METER Routine 03/02/2024 7:45 PM CDT TRANSFUSE RED BLOOD CELLS (UNIT) STAT 03/02/2024 5:34 PM CDT AMMONIA STAT 03/02/2024 3:55 PM CDT PREPARE RED BLOOD CELLS (UNIT) STAT 03/02/2024 3:29 PM CDT PREPARE RED BLOOD CELLS (UNIT) STAT 03/02/2024 3:29 PM CDT EKG 12-LEAD, TRACING ONLY STAT 03/02/2024 2:00 PM CDT INFLUENZA A/B, RSV, & SARS-COV2 PCR STAT 03/02/2024 1:57 PM CDT ABO/RH TYPE AND SCREEN STAT 03/02/2024 1:56 PM CDT CBC WITH PLATELETS & DIFFERENTIAL STAT 03/02/2024 1:56 PM CDT TYPE AND SCREEN, ADULT STAT 03/02/2024 1:56 PM CDT HEMOGLOBIN A1C Add-On 03/02/2024 1:56 PM CDT CBC WITH PLATELETS AND DIFFERENTIAL STAT 03/02/2024 1:56 PM CDT INR STAT 03/02/2024 1:56 PM CDT COMPREHENSIVE METABOLIC PANEL STAT 03/02/2024 1:56 PM CDT EXTRA HEPARINIZED SYRINGE STAT 03/02/2024 1:56 PM CDT EXTRA BLOOD BANK PURPLE TOP TUBE STAT 03/02/2024 1:56 PM CDT EXTRA BLOOD BANK PURPLE TOP TUBE STAT 03/02/2024 1:56 PM CDT EXTRA PURPLE TOP TUBE STAT 03/02/2024 1:56 PM CDT EXTRA GREEN TOP (LITHIUM HEPARIN) TUBE STAT 03/02/2024 1:56 PM CDT EXTRA RED TOP TUBE STAT 03/02/2024 1: 56 PM CDT EXTRA BLUE TOP TUBE STAT 03/02/2024 1 :56 PM CDT EXTRA TUBE STAT 03/02/2024 1:56 PM CDT HEPATITIS B SURFACE ANTIBODY Routine 02/26/2024 11:13 [...] AM CDT ABO/RH TYPE AND SCREEN STAT 02/24/2024 10:07 AM CDT TYPE AND SCREEN, ADULT STAT 02/24/2024 10:07 AM CDT AMMONIA STAT 02/24/2024 10:06 [...] CDT LIPID PROFILE STAT 12/07/2017 12:34 PM DISC RECORDIST 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 GLUCOSE BY METER POCT 96 70 - 99 mg/dL 05/24/2024 8:59 PM CDT [facility] POC Blood, Capillary BLOOD SPECIMEN / Unknown 05/24/2024 8:52 PM CDT 05/24/2024 8:59 PM CDT Antonino Cheek MD LAB - [facility] [address] (1st floor, no room number) [place] [id number] * (ABNORMAL) INR (05/24/2024 2:16 PM CDT) Only the most recent of18 resultswithin the time period is included. INR 1.16(H) 0.85 - 1.15 05/24/2024 2:34 PM CDT [facility] Blood BLOOD SPECIMEN / Unknown Venipuncture / Unknown 05/24/2024 2:16 PM CDT 05/24/2024 2:21 PM CDT Lizandro Barron MD LAB - BLOOD ORDERABL ES [facility] [address] Lab (1st floor, no room number) [place] [address], [facility] * (ABNORMAL) CBC with platelets and differential (05/24/2024 6:09 AM CDT) Only the most recent of6 resultswithin the time period is included. WBC Count 8.2 4.0 - 11.0 10e3/uL 05/24/2024 6:17 AM CDT [facility] RBC Count 3.30(L) 4.40 - 5.90 10e6/uL 05/24/2024 6:17 AM CDT [facility] Hemoglobin 9.1(L) 13.3 - 17.7 g/dL 05/24/2024 6:17 AM CDT [facility] Hematocrit 30.9(L) 40.0 - 53.0 % 05/24/2024 6:17 AM CDT [facility] MCV 94 78 - 100 fL 05/24/2024 6:17 AM CDT [facility] MCH 27.6 26.5 - 33.0 pg 05/24/2024 6:17 AM CDT [facility] MCHC 29.4(L) 31.5 - 36.5 g/dL 05/24/2024 6:17 AM CDT [facility] RDW 20.2(H) 10.0 - 15.0 % 05/24/2024 6:17 AM CDT [facility] Platelet Count 171 150 - 450 10e3/uL 05/24/2024 6:17 AM CDT [facility] % Neutrophils 79 % 05/24/2024 6:17 AM CDT [facility] % Lymphocytes 9 % 05/24/2024 6:17 AM CDT [facility] % Monocytes 6 % 05/24/2024 6:17 AM CDT [facility] % Eosinophils 2 % 05/24/2024 6:17 AM CDT [facility] % Basophils 0 % 05/24/2024 6:17 AM CDT [facility] % Immature Granulocytes 4 % 05/24/2024 6:17 AM CDT [facility] NRBCs per 100 WBC 0 <1 /100 024 6:17 AM CDT [facility] Absolute Neutrophils 6.5 1.6 - 8.3 10e3/uL 05/24/2024 6:17 AM CDT [facility] Absolute Lymphocytes 0.7(L) 0.8 - 5.3 10e3/uL 05/24/2024 6:17 AM CDT LABORATORY Absolute Monocytes 0.5 0.0 - 1.3 10e3/uL 05/24/2024 6:17 AM CDT LABORATORY Absolute Eosinophils 0.1 0.0 - 0.7 10e3/uL 05/24/2024 6:17 AM CDT LABORATORY Absolute Basophils 0.0 0.0 - 0.2 10e3/uL 05/24/2024 6:17 AM CDT LABORATORY Absolute Immature Granulocytes 0.3 <=0.4 10e3/uL 05/24/2024 6:17 AM CDT LABORATORY Absolute NRBCs 0.0 10e3/uL 05/24/2024 6:17 AM CDT LABORATORY Blood STRUCTURE OF LEFT HAND / Unknown Venipuncture / Unknown 05/24/2024 6:09 AM CDT 05/24/2024 6:14 AM CDT Antonino Cheek MD LAB - BLOOD ORDERABL ES LABORATORY [facility] [address] Lab (1st floor, no room number) [place] [address], [facility] * (ABNORMAL) Comprehensive metabolic panel (05/24/2024 6:09 AM CDT) Only the most recent of6 resultswithin the time period is included. Sodium 131(L) 135 - 145 mmol/L 05/24/2024 6:40 AM CDT LABORATORY Potassium 4.3 3.4 - 5.3 mmol/L 05/24/2024 6:40 AM CDT LABORATORY Carbon Dioxide (CO2) 24 22 - 29 mmol/L 05/24/2024 6:40 AM CDT LABORATORY Anion Gap 13 7 - 15 mmol/L 05/24/2024 6:40 AM CDT LABORATORY Urea Nitrogen 28.9(H) 8.0 - 23.0 mg/dL 05/24/2024 6:40 AM CDT LABORATORY Creatinine 5.89(H) 0.67 - 1.17 mg/dL 05/24/2024 6:40 AM CDT LABORATORY GFR Estimate 10(L) >60 mL/min/1.7 3m2 05/24/2024 6:40 AM CDT RH LABORATORY Comment:eGFR calculated usin 2020 CKD-EPI equation. Calcium 9.3 8.8 - 10.4 mg/dL 05/24/2024 6:40 AM CDT RH LABORATORY Comment:Reference intervals for this test were updated on 04/24/2024 to reflect our healthy population more accurately. There may be differences in the flagging of prior results with similar values performed with this method. Those prior results can be interpreted in the context of the updated reference intervals. Chloride 94(L) 98 - 107 mmol/L 05/24/2024 6:40 AM CDT RH LABORATORY Glucose 115(H) 70 - 99 mg/dL 05/24/2024 6:40 AM CDT RH LABORATORY Alkaline Phosphatase 62 40 - 150 U/L 05/24/2024 6:40 AM CDT RH LABORATORY AST 13 0 - 45 U/L 05/24/2024 6:40 AM CDT RH LABORATORY ALT 19 0 - 70 U/L 05/24/2024 6:40 AM CDT RH LABORATORY Protein Total 6.7 6.4 - 8.3 g/dL 05/24/2024 6:40 AM CDT RH LABORATORY Albumin 3.0(L) 3.5 - 5.2 g/dL 05/24/2024 6:40 AM CDT RH LABORATORY Bilirubin Total 0.5 <=1.2 mg/dL 05/24/2024 6:40 AM CDT RH LABORATORY Blood STRUCTURE OF LEFT HAND / Unknown Venipuncture / Unknown 05/24/2024 6:09 AM CDT 05/24/2024 6:14 AM CDT Antonino Cheek MD LAB - BLOOD ORDERABL ES LABORATORY [facility] [address] Lab (1st floor, no room number) [place] [address], [facility] * (ABNORMAL) Gram Stain (05/23/2024 6:42 PM CDT) GS Culture See corresponding culture for results JOJO 05/23/2024 8:43 PM CDT [facility] ID[facility] LABORATORY Gram Stain Result 4+ Gram positive cocci(A) 05/23/2024 8:43 PM CDT [facility] LABORATORY Gram Stain Result 3+ Gram negative bacilli(A) 05/23/2024 8:43 PM CDT [facility] LABORATORY Gram Stain Result 2+ Gram positive bacilli(A) 05/23/2024 8:43 PM CDT [facility] LABORATORY Gram Stain Result 4+ WBC seen(A) 05/23/2024 8:43 PM CDT [facility] LABORAT[facility] Comment:Predominantly PMNs Tissue SCROTAL STRUCTURE / Unknown Non-blood Collection / Unknown 05/23/2024 6:42 PM CDT 05/23/2024 6:46 PM CDT Lizandro Barron MD LAB - MICRO GENERAL ORDERABLES [facility] LABORATORY [facility] Inf. Diseases Diag. Lab [address] [facility], [address] [place], [place] [id number] * ANE AIRWAY ETT PERFORMABLE (05/23/2024 6:21 PM CDT) Narrative Donnell Ramos APRN CASINO ACCOUNTANT - 05/23/2024 6:21 PM CDT Donnell Ramos APRN CASINO ACCOUNTANT ? 05/23/2024 ??6:33 PM Airway ? Patient location during procedure: OR ? Procedure Start/Stop Times: 05/23/2024 6:21 PM Staff - ? CASINO ACCOUNTANT: Yasemin Almaguer APRN CASINO ACCOUNTANT ? Performed By: CRNAIndications and Patient Condition ? Indications for airway management: millicent-procedural ? Induction type:intravenous ? Mask difficulty assessment: 1 - vent by mask Final Airway Details ? Final airway type: endotracheal airway ? Successful airway: ETT - single Endotracheal Airway Details ? ETT size (mm): 8.0 ? Cuffed: yes ? Cuff volume (mL): 7 ? Successful intubation technique: video laryngoscopy ? VL Blade Size: Glidescope 3 ? Grade View of Cords: 1 ? Position: Center ? Measured from: lips ? Secured at (cm): 23 ? Bite block used: None Post intubation assessment ? Placement verified by: capnometry, equal breath sounds and chest rise ? Number of attempts at approach: 1 ? Number of other approaches attempted: 0 ? Secured with: tape ? Ease of procedure: easy ? Dentition: Intact and Unchanged Medication(s) Administered Medication Administration Time: 05/23/2024 6:21 PM Tom Castro MD [place] ANESTHESIA * EKG 12-lead, tracing only (05/23/2024 5:08 PM CDT) Only the most recent of3 resultswithin the time period is included. Systolic Blood Pressure mmHg RADIOLOGY RESULTS Diastolic Blood Pressure mmHg RADIOLOGY RESULTS Ventricular Rate 63 BPM RAD IOLOGY RESULTS Atrial Rate 63 BPM RADIOLOG Y RESULTS IL Interval 222 ms RADIOLOG Y RESULTS QRS Duration 102 ms RADIOLO GY RESULTS QT 448 ms RADIOLOGY RESULTS QTc 458 ms RADIOLOGY RESULTS P Thornton 54 degrees RADIOLOGY RESULTS R AXIS -5 degrees RADIOLOGY RESULTS T Thornton 24 degrees RADIOLOGY RESULTS Interpretation ECG Sinus rhythm with 1st degree A-V block Septal infarct , age undetermined Abnormal ECG When compared with ECG of 02-Mar-2024 14:00, Septal infarct is now Present No significant change was found Confirmed by - EMERGENCY ROOM, PHYSICIAN ([id number]), desk editor LIZANDRO ZABALA ([id number]) on 05/24/2024 6:44:53 AM RADIOLOGY RESULTS 05/23/2024 5:08 PM CDT 05/24/2024 6:44 AM CDT Pan Michelle MD ECG ORDERABLES RADIOLOGY RESULTS * CT Abdomen Pelvis w Contrast (05/23/2024 2:19 PM CDT) Only the most recent of2 resultswithin the time period is included. Anatomical Region Laterality Modality Abdomen/Pelvis, SUBRAD CT YAIMA DY, UMP CT ABDOMEN PELVIS, RAD CT Computed Tomography Impressions 05/23/2024 2:43 PM CDT IMPRESSION: 1. 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 2. ??Other chronic findings as discussed above. Findings were discussed with Dr. Kenna Coe at 2:35 PM. MIKE SANTANA MD SYSTEM ID: ??[id number] Narrative 05/23/2024 2:[address] ABDOMEN PELVIS W CONTRAST 05/23/2024 2:19 PM CLINICAL HISTORY: sloughing scrotal skin, subcutaneous crepitus TECHNIQUE: CT scan of the abdomen and pelvis was performed following injection of IV contrast. Multiplanar reformats were obtained. Dose reduction techniques were used. CONTRAST: 93mL Isovue-370 COMPARISON: 02/25/2024 FINDINGS: LOWER CHEST: The visualized lung bases are clear. HEPATOBILIARY: No focal lesions in the liver. Cholelithiasis. PANCREAS: Normal. SPLEEN: Normal. ADRENAL GLANDS: Normal. KIDNEYS/BLADDER: Atrophic kidneys with multiple bilateral renal cysts. No calculi or hydronephrosis. Mild circumferential wall thickening of the urinary bladder. BOWEL: No small bowel or colonic obstruction or inflammatory changes. Normal appendix. PELVIC ORGANS: No pelvic masses. 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 ADDITIONAL FINDINGS: No lymphadenopathy in the abdomen and pelvis. No abdominal aortic aneurysm. No free fluid or fluid collections. No free air. Partly visualized left lower extremity arteriovenous dialysis fistula and old thrombosed right lower extremity arteriovenous dialysis graft. 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 No destructive lesions in the bones. Procedure Note Mike Santana MD - 05/23/2024 CT ABDOMEN PELVIS W CONTRAST 05/23/2024 2:19 PM CLINICAL HISTORY: sloughing scrotal skin, subcutaneous crepitus TECHNIQUE: CT scan of the abdomen and pelvis was performed following injection of IV contrast. Multiplanar reformats were obtained. Dose reduction techniques were used. CONTRAST: 93mL Isovue-370 COMPARISON: 02/25/2024 FINDINGS: LOWER CHEST: The visualized lung bases are clear. HEPATOBILIARY: No focal lesions in the liver. Cholelithiasis. PANCREAS: Normal. SPLEEN: Normal. ADRENAL GLANDS: Normal. KIDNEYS/BLADDER: Atrophic kidneys with multiple bilateral renal cysts. No calculi or hydronephrosis. Mild circumferential wall thickening of the urinary bladder. BOWEL: No small bowel or colonic obstruction or inflammatory changes. Normal appendix. PELVIC ORGANS: No pelvic masses. 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 ADDITIONAL FINDINGS: No lymphadenopathy in the abdomen and pelvis. No abdominal aortic aneurysm. No free fluid or fluid collections. No free air. Partly visualized left lower extremity arteriovenous dialysis fistula and old thrombosed right lower extremity arteriovenous dialysis graft. 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 No destructive lesions in the bones. IMPRESSION: 1. 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 2. Other chronic findings as discussed above. Findings were discussed with Dr. Kenna Coe at 2:35 PM. MIKE SANTANA MD SYSTEM ID: [id number] Vi Coe DO IMG CT ORDERABLE S * Adult Type and Screen (05/23/2024 2:07 PM CDT) Only the most recent of5 resultswithin the time period is included. ABO/RH(D) O POS 05/23/2024 1:37 PM CDT RH BLOOD BANK Antibody Screen Negative Negative 05/23/2024 1:37 PM CDT RH BLOOD BANK SPECIMEN EXPIRATION DATE [id number] 05/23/2024 1:37 PM CDT RH BLOOD BANK Blood BLOOD SPECIMEN / Unknown Venipuncture / Unknown 05/23/2024 2:07 PM CDT 05/23/2024 2:10 PM CDT Vi Coe DO LAB - BLOOD BANK TEST ORDER BLOOD BANK [address] [place] [address] * Lactic acid whole blood (05/23/2024 1:50 PM CDT) Lactic Acid 0.9 0.7 - 2.0 mmol/L 05/23/2024 1:57 PM CDT LABORATORY Blood BLOOD SPECIMEN / Unknown Venipuncture / Unknown 05/23/2024 1:50 PM CDT 05/23/2024 1:54 PM CDT Vi Coe DO LAB - BLOOD ROVERTO WHITMORE RH LABORATORY [facility] [address] [facility] Lab (1st floor, no room number) [place] [address] * (ABNORMAL) Renal panel (03/12/2024 6:06 AM CDT) Only the most recent of8 resultswithin the time period is included. Sodium 123(L) 135 - 145 mmol/L 03/12/2024 6:35 AM CDT RH LABORATORY Comment:Reference intervals for this test were updated on 07/05/2023 to more accurately reflect our healthy population. There may be differences in the flagging of prior results with similar values performed with this method. Interpretation of those prior results can be made in the context of the updated reference intervals. Potassium 4.9 3.4 - 5.3 mmol/L 03/12/2024 6:35 AM CDT LABORATORY Chloride 87(L) 98 - 107 mmol/L 03/12/2024 6:35 AM CDT LABORATORY Carbon Dioxide (CO2) 23 22 - 29 mmol/L 03/12/2024 6:35 AM CDT LABORATORY Anion Gap 13 7 - 15 mmol/L 03/12/2024 6:35 AM CDT LABORATORY Glucose 77 70 - 99 mg/dL 03/12/2024 6:35 AM CDT LABORATORY Urea Nitrogen 48.4(H) 8.0 - 23.0 mg/dL 03/12/2024 6:35 AM CDT LABORATORY Creatinine 7.98(H) 0.67 - 1.17 mg/dL 03/12/2024 6:35 AM CDT LABORATORY GFR Estimate 7(L) >60 mL/min/1. 73m2 03/12/2024 6:35 AM CDT RH LABORATORY Calcium 8.3(L) 8.8 - 10.2 mg/dL 03/12/2024 6:35 AM CDT RH LABORATORY Albumin 3.0(L) 3.5 - 5.2 g/dL 03/12/2024 6:35 AM CDT RH LABORATORY Phosphorus 3.0 2.5 - 4.5 mg/dL 03/12/2024 6:35 AM CDT RH LABORATORY Blood STRUCTURE OF RIGHT UPPER LIMB / Unknown Venipuncture / Unknown 03/12/2024 6:06 AM CDT 03/12/2024 6:10 AM CDT Eileen Earl MD LAB - BLOOD ORDERA BLES Performing Organization Address City/[facility]/ZIP Co de Phone Number [facility] Lab [address] Lab (1st floor, no room number) [place] [phone] * (ABNORMAL) Hemoglobin (03/12/2024 6:06 AM CDT) Only the most recent of30 resultswithin the time period is included. Hemoglobin 8.1(L) 13.3 - 17.7 g/dL 03/12/2024 6:14 AM CDT LABORATORY Blood STRUCTURE OF RIGHT UPPER LIMB / Unknown Venipuncture / Unknown 03/12/2024 6:06 AM CDT 03/12/2024 6:10 AM CDT Aashish Romero DO LAB - BLOOD ORDER NADIA Performing Organization Address City/[facility]/ZIP Co de Phone Number [facility] Lab [address] Lab (1st floor, no room number) [place] [address] * Glucose (03/12/2024 6:06 AM CDT) Only the most recent of2 resultswithin the time period is included. Glucose 77 70 - 99 mg/dL 03/12/2024 6:35 AM CDT RH LABORATORY Blood STRUCTURE OF RIGHT UPPER LIMB / Unknown Venipuncture / Unknown 03/12/2024 6:06 AM CDT 03/12/2024 6:10 AM CDT Ron Tripathi MD LAB - BLOOD ORDERABL ES LABORATORY [facility] [address] Lab (1st floor, no room number) [place] [address] * (ABNORMAL) CBC with platelets (03/11/2024 7:03 AM CDT) Only the most recent of6 resultswithin the time period is included. WBC Count 9.9 4.0 - 11.0 10e3/uL 03/11/2024 7:32 AM CDT RH LABORATORY RBC Count 2.68(L) 4.40 - 5.90 10e6/uL 03/11/2024 7:32 AM CDT RH LABORATORY Hemoglobin 7.8(L) 13.3 - 17.7 g/dL 03/11/2024 7:32 AM CDT RH LABORATORY Hematocrit 23.8(L) 40.0 - 53.0 % 03/11/2024 7:32 AM CDT RH LABORATORY MCV 89 78 - 100 fL 03/11/2024 7:32 AM CDT RH LABORATORY MCH 29.1 26.5 - 33.0 pg 03/11/2024 7:32 AM CDT RH LABORATORY MCHC 32.8 31.5 - 36.5 g/dL 03/11/2024 7:32 AM CDT RH LABORATORY RDW 15.0 10.0 - 15.0 % 03/11/2024 7:32 AM CDT RH LABORATORY Platelet Count 154 150 - 450 10e3/uL 03/11/2024 7:32 AM CDT RH LABORATORY Blood STRUCTURE OF RIGHT UPPER LIMB / Unknown Venipuncture / Unknown 03/11/2024 7:03 AM CDT 03/11/2024 7:10 AM CDT Aashish Romero DO LAB - BLOOD ORDER NADIA [facility] Lab [address] Lab (1st floor, no room number) [place] [address], [facility] * XR Chest Port 1 View (03/11/2024 3:25 AM CDT) Anatomical Region Laterality Modality Chest Digital Radiogra phy 03/11/2024 3:25 AM CDT Impressions 03/11/2024 3:30 AM CDT IMPRESSION: Normal heart size and pulmonary vascularity. Lungs clear. No pneumothorax. Minimal fluid or thickening along the right fissure. Narrative 03/11/2024 3:30 AM CDT EXAM: XR CHEST PORT 1 VIEW LOCATION: [facility] DATE: 03/11/2024 INDICATION: Shortness of breath COMPARISON: None. Procedure Note David Díaz MD - 03/11/2024 EXAM: XR CHEST PORT 1 VIEW LOCATION: [facility] DATE: 03/11/2024 INDICATION: Shortness of breath COMPARISON: None. IMPRESSION: Normal heart size and pulmonary vascularity. Lungs clear. Nopneumothorax. Minimal fluid or thickening along the right fissure. Addis Zhang MD, MD IMG DIAGNOSTIC TAYLOR GING ORDERABLES * CONDITIONAL Transfuse red blood cells (unit) 1; No special requirements (03/10/2024 11:23 PM CDT) Only the most recent of4 resultswithin the time period is included. Eileen Earl MD BLOOD TRANSFUSION ORDERABLES * CONDITIONAL Prepare red blood cells (unit) (03/10/2024 6:37 PM CDT) Only the most recent of3 resultswithin the time period is included. Blood Component Type Red Blood Cells RH BLOOD BANK Product Code [id number] RH BLOO D BANK Unit Status Transfused RH BLOO D BANK Unit Number [id number] RH B LOOD BANK CROSSMATCH Compatible RH BLOOD BANK CODING SYSTEM [id number] RH BLO OD BANK ISSUE DATE AND TIME [id number] RH BLOOD BANK UNIT ABO/RH O+ RH BLOOD BANK UNIT TYPE [id number] RH BL OOD BANK 03/10/2024 6:37 PM CDT Eileen Earl MD BLOOD BANK PRODUCT ORDERABLES Performing Organization Address [facility]/ZIP Co de Phone Number BLOOD BANK [address] [place] [phone] [place] [address] * Morphology Tracking (03/09/2024 9:12 AM CDT) Blood VENOUS LINE / Unknown Venipuncture / Unknown 03/09/2024 9:12 AM CDT 03/09/2024 9:26 AM CDT Antonino Cheek MD LAB - BLOOD ORDERABL ES Performing Organization Address [facility]/ZIP Co de Phone Number [facility] [address] [facility], no room number[facility] [address] * Lactate Dehydrogenase (03/09/2024 9:12 AM CDT) Lactate Dehydrogenase 226 0 - 250 U/L 03/09/2024 9:59 AM CDT RH LABORATORY Blood VENOUS LINE / Unknown Venipuncture / Unknown 03/09/2024 9:12 AM CDT 03/09/2024 9:26 AM CDT Antonino Cheek MD LAB - BLOOD ORDERABL ES Performing Organization Address [facility] Co de Phone Number [facility] [address] [facility] (1st floor, no room number) [address] * (ABNORMAL) Reticulocyte count (03/09/2024 9:12 AM CDT) % Reticulocyte 2.8(H) 0.5 - 2.0 % 03/09/2024 9:33 AM CDT RH LABORATORY Absolute Reticulocyte 0.072 0.025 - 0.095 10e6/uL 03/09/2024 9:33 AM CDT RH LABORATORY Blood VENOUS LINE / Unknown Venipuncture / Unknown 03/09/2024 9:12 AM CDT 03/09/2024 9:26 AM CDT Antonino Cheek MD LAB - BLOOD ORDERABL ES LABORATORY [facility] [address] Lab (1st floor, no room number) [place] [address] * Haptoglobin (03/09/2024 9:12 AM CDT) Haptoglobin 127 30 - 200 mg/dL 03/10/2024 1:23 AM CDT UU LABORATORY Blood VENOUS LINE / Unknown Venipuncture / Unknown 03/09/2024 9:12 AM CDT 03/09/2024 9:26 AM CDT Antonino Cheek MD LAB - BLOOD ORDERABL ES UU LABORATORY [facility] [place] [facility] [address] [facility], [address] [place] [address] * Bld morphology pathology review (03/09/2024 9:12 AM CDT) Final Diagnosis Peripheral blood for morphology: -Moderate normochromic, normocytic anemia without evidence of red cell regeneration; no morphologic or laboratory features of hemolysis detected -Slight mature neutrophilia without morphologic abnormalities 03/13/2024 10:17 AM [facility] PATHOLOGY LAB Comment Review of recent laboratory data notes normal LDH and haptoglobin. The history of GI bleeding and end-stage renal disease on hemodialysis are noted. Both conditions would contribute to the anemia present. 03/13/2024 10:17 AM [facility] PATH[facility] Clinical Information Looking for signs of hemolysis 03/13/2024 10:17 AM T [facility] PATHOLOG[facility] LAB Peripheral Smear ERYTHROCYTES: The hemoglobin is moderately decreased and the cells are normochromic and normocytic. There is some variation in cell size. Polychromasia is not increased. Fragmented red cells are rare and there is no evidence of a microangiopathic blood picture. Intracellular organisms are not detected. LEUKOCYTES: The white count is at the high end of normal range. A slight mature neutrophilia is present. Neutrophil morphology and lymphocyte morphology are normal. PLATELETS: The platelet count and morphology are normal. For patients over 18 years old, anemia and quantitative abnormalities of WBC and platelets (if present) may be further stratified as follows: Hemoglobin (g/dL) in (females)/males: (9.7 - 11.6)/ 10.0 - 12.6: Mild anemia (7.7 - 9.6)/ 7.7 - 9.6: Moderate anemia Less than 7.7: Marked anemia WBC (10^9/L): Greater than 50.0: Marked leukocytosis 18.0 - 50.0: Moderate leukocytosis 11.1 - 17.9: Mild leukocytosis 3.0 - 3.9: Mild leukopenia 2.0 - 2.9: Moderate leukopenia Less than 2.0: Marked leukopenia Platelets (10^9/L): Greater than 900: Marked thrombocytosis 601 - 900: Moderate thrombocytosis 451 - 600: Mild thrombocytosis 100 - 149: Mild thrombocytopenia 50 - 99: Moderate thrombocytopenia Less than 50: Marked thrombocytopenia 03/13/2024 10:17 AM [facility] PATHOLOGY LAB Performing Labs The technical component of this testing was completed at [facility], [facility] and [facility] 03/13/2024 10:17 AM T [facility] PATHOLOGY LAB Blood VENOUS LINE / Unknown Venipuncture / Unknown 03/09/2024 9:12 AM CDT 03/09/2024 9:27 AM CDT Comment:CBC with platelets d ifferential and Reticulocyte count should be ordered concurrently with the peripheral smear (all tests performed on the same tube of blood). The concurrent CBC with platelets differential and Reticulocyte count are incorporated into the final peripheral smear report and are necessary for interpretation. Antonino DEAN - DAVID VALENCIA [facility] PATHOLOGY LAB [facility] Pathology Lab [address] 1st Floor, [address] [place] [address] * Bilirubin Direct and Total (03/09/2024 9:12 AM CDT) Bilirubin Direct 0.22 0.00 - 0.30 mg/dL 03/09/2024 9:59 AM CDT RH LABORATORY Bilirubin Total 0.5 <=1.2 mg/dL 03/09/2024 9:59 AM CDT RH LABORATORY Blood VENOUS LINE / Unknown Venipuncture / Unknown 03/09/2024 9:12 AM CDT 03/09/2024 9:26 AM CDT Antonino Cheek MD LAB - BLOOD ORDERABL ES LABORATORY [facility] [address] Lab (1st floor, no room number) [place] [address] * Surgical Pathology Exam (03/08/2024 1:26 PM CDT) Case Report Surgical Pathology Report ? Case: [id number] ? Authorizing Provider: ??Eileen Earl MD ?Collected: ? 03/08/2024 01:26 PM ? Ordering Location: ? [facility] ?Received: ?03/08/2024 02:01 PM ? [facility] ? Pathologist: ? Jae Cardona MD ? Specimen: ?Rectum, Rectum polyp ? 03/09/2024 10:13 AM [facility] Final Diagnosis Rectum, polypectomy: --Hyperplastic polyp. 03/09/2024 10:13 AM [facility] Clinical Information Procedure: Colonoscopy with polypectomy by cold biopsy forceps Pre-op Diagnosis: Anemia, unspecified type [D64.9] Post-op Diagnosis: D64.9 - Anemia, unspecified type [ICD-10-CM] 03/09/2024 10:13 AM [facility] Gross Description A(1). Rectum, Rectum polyp: The specimen is received in formalin, labeled with the patient's name, medical record number and other identifying information and designated ? rectum polyp? . It consists of 2 english soft tissue fragments ranging from 0.1-0.4 cm. Entirely submitted in one cassette. MARY Gates(ASCP)CM 03/08/2024 2:57 PM 03/09/2024 10:13 AM [facility] Microscopic Description Microscopic examination was performed. 03/09/2024 10:13 AM [facility] Performing Labs The technical component of this testing was completed at [facility]. Stain controls for all stains resulted within this report have been reviewed and show appropriate reactivity. 03/09/2024 10:13 AM [facility] Case Images 03/09/2024 10:13 AM [facility] Polyp RECTUM PART / Unknown 03/08/2024 1:26 PM CDT 03/08/2024 2:01 PM CDT Eileen Earl MD LAB - DAVID [facility] Lab [address] Lab (1st floor, no room number) [place] [address], [facility] * COLONOSCOPY (03/08/2024 1:04 PM CDT) [facility] COLONOSCOPY [facility] Patient Name: Herminio Victor ? Procedure Date: 03/08/2024 1:04 PM ? Date of : 1965 ?Admit Type: Inpatient Age: 58 ? Gender: Male Attending MD: EILEEN EARL MD, ??Total Sedation Time: 20 minutes Instrument Name: 222 - Adult Colonoscope Procedure: ?Colonoscopy Indications: ?Anemia Providers: ?EILEEN EARL MD (Doctor) Referring MD: ? Medicines: ?Midazolam 0.5 mg IV, Fentanyl 50 micrograms IV Complications: ?No immediate complications. Procedure: ?Pre-Anesthesia Assessment: ?- Prior to the procedure, a History and Physical ?was performed, and patient medications and ?allergies were reviewed. The patient is unable to ?give consent secondary to the patient being legally ?incompetent to consent. The risks and benefits of ?the procedure and the sedation options and risks ?were discussed with the patient's relative. All ?questions were answered and informed consent was ?obtained. Patient identification and proposed ?procedure were verified by the physician in the ?endoscopy suite. Mental Status Examination: alert ?and oriented. Airway Examination: normal ?oropharyngeal airway and neck mobility. Respiratory ?Examination: clear to auscultation. CV Examination: ?systolic murmur. Prophylactic Antibiotics: The ?patient does not require prophylactic antibiotics. ?Prior Anticoagulants: The patient has taken no ?anticoagulant or antiplatelet agents. ASA Grade ?Assessment: III - A patient with severe systemic ?disease. After reviewing the risks and benefits, ?the patient was deemed in satisfactory condition to ?undergo the procedure. The anesthesia plan was to ?use moderate sedation / analgesia (conscious ?sedation). Immediately prior to administration of ?medications, the patient was re-assessed for ?adequacy to receive sedatives. The heart rate, ?respiratory rate, oxygen saturations, blood ?pressure, adequacy of pulmonary ventilation, and ?response to care were monitored throughout the ?procedure. The physical status of the patient was ?re-assessed after the procedure. ?After obtaining informed consent, the colonoscope ?was passed under direct vision. Throughout the ?procedure, the patient's blood pressure, pulse, and ?oxygen saturations were monitored continuously. The ?Explara Adult Colonoscope, Model # CF-UH410D, ?Censitrac # [id number] was introduced through the ?anus and advanced to the terminal ileum. The ?colonoscopy was performed without difficulty. The ?patient tolerated the procedure well. The quality ?of the bowel preparation was poor. ? Findings: ? A moderate amount of stool was found in the entire colon. This was ? yellow. No blood or evidence of bleeding. ? A 3 mm polyp was found in the rectum. The polyp was sessile. The polyp ? was removed with a cold biopsy forceps. Resection and retrieval were ? complete. ? Impression: ? - Preparation of the colon was poor. ?- Stool in the entire examined colon. ?- One 3 mm polyp in the rectum, removed with a cold ?biopsy forceps. Resected and retrieved. Recommendation: ? No reason for anemia seen. Could anemia be from ?hemolysis? If it is thought GI losses are ?contributing, can do an outpatient pill camera ?study. OK to restart anticoagulation. Repeat exam ?in seven years. ? ____ EILEEN EARL MD 03/08/2024 1:38:41 PM I was physically present for the entire viewing portion of the exam. EILEEN EARL MD Number of Addenda: 0 Note Initiated On: 03/08/2024 1:04 PM MRN: ?[id number] Procedure Date: ? 03/08/2024 1:04:50 PM Scope Withdrawal Time: 0 hours 11 minutes 55 seconds Total Procedure Duration: 0 hours 17 minutes 23 seconds Estimated Blood Loss: ? Scope In: 1:12:27 PM Scope Out: 1:29:50 PM RADIOLOGY RESULTS 03/08/2024 1:04 PM CDT Eileen Earl MD PROCEDURES RADIOLOGY RESULTS * US Upper Extremity Venous Duplex Right (03/07/2024 10:13 PM CDT) Anatomical Region Laterality Modality Extremity Ultrasound 03/07/2024 10:1 3 PM CDT Impressions 03/07/2024 10:28 PM CDT IMPRESSION: 1. ??No deep venous thrombosis in the right upper extremity. 2. ??Superficial venous thrombus within the right cephalic vein from the proximal to distal forearm. Narrative 03/07/2024 10:28 PM CDT EXAM: US UPPER EXTREMITY VENOUS DUPLEX RIGHT LOCATION: [facility] DATE: 03/07/2024 INDICATION: Swelling, looking for DVT COMPARISON: None. TECHNIQUE: Venous Duplex ultrasound of the right upper extremity with (when possible) and without compression, augmentation, and duplex. Color flow and spectral Doppler with waveform analysis performed. FINDINGS: Ultrasound includes evaluation of the internal jugular vein, innominate vein, subclavian vein, axillary vein, and brachial vein. The superficial cephalic and basilic veins were also evaluated where seen. RIGHT: No deep venous thrombosis. Occlusive superficial venous thrombus within. Vein from the proximal through distal forearm. Procedure Note Arvin Reese MD - 03/07/2024 EXAM: US UPPER EXTREMITY VENOUS DUPLEX RIGHT LOCATION: [facility] DATE: 03/07/2024 INDICATION: Swelling, looking for DVT COMPARISON: None. TECHNIQUE: Venous Duplex ultrasound of the right upper extremity with(when possible) and without compression, augmentation, and duplex. Colorflow and spectral Doppler with waveform analysis performed. FINDINGS: Ultrasound includes evaluation of the internal jugular vein,innominate vein, subclavian vein, axillary vein, and brachial vein. Thesuperficial cephalic and basilic veins were also evaluated where seen. RIGHT: No deep venous thrombosis. Occlusive superficial venous thrombuswithin. Vein from the proximal through distal forearm. IMPRESSION: 1. No deep venous thrombosis in the right upper extremity. 2. Superficial venous thrombus within the right cephalic vein from theproximal to distal forearm. Antonino Cheek MD [facility] [place] ORDERABLES * Single Lumen Midline Placement (03/07/2024 1:34 PM CDT) Narrative Patricio Bocanegra RN - 03/07/2024 1:34 PM CDT Patricio Bocanegra RN ? 03/07/2024 ??1:41 PM [facility] Single Lumen Midline Placement Date/Time: 03/07/2024 1:34 PM Performed by: Patricio Bocanegra RN Authorized by: Antonino Cheek MD ??Indications: vascular access UNIVERSAL PROTOCOL Site Marked: Yes Prior Images Obtained and Reviewed: ??Yes Required items: Required blood products, implants, devices and special equipment available ?? Patient identity confirmed: ??Verbally with patient, arm band and hospital-assigned identification number NA - No sedation, light sedation, or local anesthesia Confirmation Checklist: ??Patient's identity using two indicators, relevant allergies, procedure was appropriate and matched the consent or emergent situation and correct equipment/implants were available Time out: Immediately prior to the procedure a time out was called ?? [place] Protocol: the Joint Commission [place] Protocol was followed ?? Preparation: Patient was prepped and draped in usual sterile fashion ?? ANESTHESIA Anesthesia: ??Local infiltration Local Anesthetic: ??Lidocaine 1% without epinephrine Anesthetic Total (mL): ??4 SEDATION Patient Sedated: No ?? Preparation: skin prepped with ChloraPrep Skin prep agent: skin prep agent completely dried prior to procedure Sterile barriers: maximum sterile barriers were used: cap, mask, sterile gown, sterile gloves, and large sterile sheet Hand hygiene: hand hygiene performed prior to central venous catheter insertion Type of line used: Midline Catheter type: single lumen Lumen type: non-valved Catheter size: 4 Fr Brand: Bard Lot number: [id number] Placement method: venipuncture, MST and ultrasound Number of attempts: 1 Difficulty threading catheter: no Successful placement: yes Orientation: left Catheter to Vein (%): 6 Location: basilic vein (5.1mm) Tip Location: distal to axillary vein Arm circumference: adults 10 cm Extremity circumference: 34 Visible catheter length: 2 Internal length: 12 cm Total catheter length: 14 Dressing and securement: alcohol impregnated caps, blood cleaned with CHG, blood removed, occlusive dressing applied, pressure dressing, subcutaneous anchor securement system, sterile dressing applied, thrombin hemostasis patch applied and gauze (pressure dressing can be removed in 20-30min if bleeding has stopped) Post procedure assessment: blood return through all ports and free fluid flow PROCEDURE Patient Tolerance: ??Patient tolerated the procedure well with no immediate complicationsDescribe Procedure: Midline ok to use, Anusha Lindsey RN informed Antonino Cheek MD PROCEDURE/MINOR SURG ICAL ORDERABLES * Extra Serum Separator Tube (SST) (03/06/2024 7:55 PM CDT) Hold Specimen [facility] 03/06/2024 9:03 PM CDT [facility] Blood BLOOD SPECIMEN / Unknown Venipuncture / Unknown 03/06/2024 7:55 PM CDT 03/06/2024 7:55 PM CDT Ron Tripathi MD LAB - BLOOD ORDERABL ES [facility] [address] Lab (1st floor, no room number) [place] [address], [facility] * (ABNORMAL) Basic metabolic panel (03/06/2024 4:28 PM CDT) Only the most recent of3 resultswithin the time period is included. Sodium 121(L) 135 - 145 mmol/L 03/06/2024 4:54 PM CDT [facility] Comment:Reference intervals for this test were updated on 07/05/2023 to more accurately reflect our healthy population. There may be differences in the flagging of prior results with similar values performed with this method. Interpretation of those prior results can be made in the context of the updated reference intervals. Potassium 5.1 3.4 - 5.3 mmol/L 03/06/2024 4:54 PM CDT [facility] Chloride 82(L) 98 - 107 mmol/L 03/06/2024 4:54 PM CDT [facility] Carbon Dioxide (CO2) 24 22 - 29 mmol/L 03/06/2024 4:54 PM CDT [facility] Anion Gap 15 7 - 15 mmol/L 03/06/2024 4:54 PM CDT [facility] Urea Nitrogen 50.9(H) 8.0 - 23.0 mg/dL 03/06/2024 4:54 PM CDT [facility] Creatinine 6.65(H) 0.67 - 1.17 mg/dL 03/06/2024 4:54 PM CDT [facility] GFR Estimate 9(L) >60 mL/min/1. 73m2 03/06/2024 4:54 PM CDT [facility] Calcium 7.1(L) 8.8 - 10.2 mg/dL 03/06/2024 4:54 PM CDT LABORATORY Glucose 196(H) 70 - 99 mg/dL 03/06/2024 4:54 PM CDT LABORATORY Blood STRUCTURE OF LEFT UPPER LIMB / Unknown Venipuncture / Unknown 03/06/2024 4:28 PM CDT 03/06/2024 4:32 PM CDT Antonino Cheek MD LAB - BLOOD ORDERABL ES LABORATORY [facility] [address] Lab (1st floor, no room number) [place] [address] * UPPER GI ENDOSCOPY (03/06/2024 1:21 PM CDT) [facility] Upper GI Endoscopy [facility] Patient Name: Herminio Navarro Kayleigh ? Procedure Date: 03/06/2024 1:21 PM ? Date of : 1965 ?Admit Type: Inpatient Age: 58 ? Gender: Male Attending MD: EILEEN EARL MD, ??Total Sedation Time: MAC sedation Instrument Name: 206 - Gastroscope ? Procedure: ?Upper GI endoscopy Indications: ?worsening anemia Providers: ?EILEEN EARL MD (Doctor) Referring MD: ? Medicines: ?Monitored Anesthesia Care Complications: ?No immediate complications. Procedure: ?Pre-Anesthesia Assessment: ?- Prior to the procedure, a History and Physical ?was performed, and patient medications and ?allergies were reviewed. The patient is unable to ?give consent secondary to the patient being legally ?incompetent to consent. The risks and benefits of ?the procedure and the sedation options and risks ?were discussed with the patient's relative. All ?questions were answered and informed consent was ?obtained. Patient identification and proposed ?procedure were verified by the physician in the ?pre-procedure area. Mental Status Examination: ?alert but confused. Airway Examination: normal ?oropharyngeal airway and neck mobility. Respiratory ?Examination: clear to auscultation. CV Examination: ?systolic murmur. Prophylactic Antibiotics: The ?patient does not require prophylactic antibiotics. ?Prior Anticoagulants: The patient has taken ?Coumadin (warfarin), last dose was 2 days prior to ?procedure. ASA Grade Assessment: III - A patient ?with severe systemic disease. After reviewing the ?risks and benefits, the patient was deemed in ?satisfactory condition to undergo the procedure. ?The anesthesia plan was to use monitored anesthesia ?care (MAC). Immediately prior to administration of ?medications, the patient was re-assessed for ?adequacy to receive sedatives. The heart rate, ?respiratory rate, oxygen saturations, blood ?pressure, adequacy of pulmonary ventilation, and ?response to care were monitored throughout the ?procedure. The physical status of the patient was ?re-assessed after the procedure. ?After obtaining informed consent, the endoscope was ?passed under direct vision. Throughout the ?procedure, the patient's blood pressure, pulse, and ?oxygen saturations were monitored continuously. The ?Olympus Gastroscope, Model # GIF-H190, Censitrac # ?[id number] was introduced through the mouth, and ?advanced to the third part of duodenum. The upper ?GI endoscopy was accomplished without difficulty. ?The patient tolerated the procedure well. ? Findings: ? Grade I varices were found in the lower third of the esophagus. Z line ? 41 cm. ? Localized moderately erythematous mucosa without bleeding was found on ? the greater curvature of the stomach. ? The examined duodenum was normal. ? Impression: ? - Grade I esophageal varices. ?- Erythematous mucosa in the greater curvature. ?- Normal examined duodenum. ?- No specimens collected. Recommendation: ? Mid gastric inflamed folds not present two weeks ?ago, may be cause of anemia. Possibly from ?vomiting. Less likely portal hypertensive ?gastropathy. Solid stool noted in diaper so ?colonoscopy not performed. ? ____ EILEEN EARL MD 03/06/2024 2:41:36 PM I was physically present for the entire viewing portion of the exam. EILEEN EARL MD Number of Addenda: 0 Note Initiated On: 03/06/2024 1:21 PM MRN: ?[id number] Procedure Date: ? 03/06/2024 1:21:29 PM Total Procedure Duration: 0 hours 5 minutes 6 seconds Estimated Blood Loss: ? Scope In: 2:15:42 PM Scope Out: 2:20:48 PM RADIOLOGY RESULTS 03/06/2024 1:21 PM CDT Eileen Earl MD PROCEDURES RADIOLOGY RESULTS * Transfuse red blood cells (unit) (03/06/2024 12:05 PM CDT) Only the most recent of5 resultswithin the time period is included. Antonino Cheek MD BLOOD TRANSFUSION OR DERABLES * Prepare red blood cells (unit) (03/06/2024 7:50 AM CDT) Only the most recent of6 resultswithin the time period is included. Blood Component Type Red Blood Cells [facility] BLOOD BANK Product Code [id number] RH BLOO D BANK Unit Status Transfused RH BLOO D BANK Unit Number [id number] RH B LOOD BANK CROSSMATCH Compatible RH BLOOD BANK CODING SYSTEM [id number] RH BLO OD BANK ISSUE DATE AND TIME [id number] RH BLOOD BANK UNIT ABO/RH O+ RH BLOOD BANK UNIT TYPE ISBT 5100 RH BL OOD BANK 03/06/2024 7:50 AM CDT Antonino Cheek MD BLOOD BANK PRODUCT O RDERABLES Performing Organization Address City/[facility]/ZIP Co de Phone Number BLOOD BANK [address] [place] [address] * (ABNORMAL) Potassium (03/04/2024 6:29 PM CDT) Potassium 5.6(H) 3.4 - 5.3 mmol/L 03/04/2024 7:00 PM CDT LABORATORY Blood STRUCTURE OF LEFT HAND / Unknown Venipuncture / Unknown 03/04/2024 6:29 PM CDT 03/04/2024 6:37 PM CDT Job Hre MD LAB - BLOOD ORDERABL ES LABORATORY [facility] [address] [facility], no room number) [place] [address] * Cortisol (03/04/2024 6:45 AM CDT) Cortisol 12.0 ug/dL 03/04/2024 11:50 AM CDT [facility] Comment: 6 months and older: 6 to 10 AM Cortisol Reference Range: ??4-22 ug/dL 4 to 8 PM Cortisol Reference Range: ??3-17 ug/dL Blood STRUCTURE OF RIGHT UPPER LIMB / Unknown Venipuncture / Unknown 03/04/2024 6:45 AM CDT 03/04/2024 6:54 AM CDT Aashish Romero DO LAB - BLOOD ORDER NADIA [facility] [address] [facility], [address] [place] [address] * (ABNORMAL) Ammonia (on ice) (03/02/2024 3:55 PM CDT) Only the most recent of2 resultswithin the time period is included. Ammonia <10(L) 16 - 60 umol/L 03/02/2024 4:21 PM CDT [facility] Blood STRUCTURE OF RIGHT UPPER LIMB / Unknown Venipuncture / Unknown 03/02/2024 3:55 PM CDT 03/02/2024 3:57 PM CDT Raúl Bernard MD LAB - BLOOD ORDERABL ES LABORATORY [facility] [address] [facility] Lab (1st floor, no room number) [place] [address] * Asymptomatic Influenza A/B, RSV, & SARS-CoV2 PCR (COVID-19) Nasopharyngeal (03/02/2024 1:57 PM CDT) Influenza A PCR Negative Negative 03/02/2024 3:05 PM CDT [facility] Influenza B PCR Negative Negative 03/02/2024 3:05 PM CDT [facility] RSV PCR Negative Negative 03/02/2024 3:05 PM CDT [facility] SARS CoV2 PCR Negative Negative 03/02/2024 3:05 PM CDT [facility] Comment:NEGATIVE: SARS-CoV-2 (COVID-19) RNA not detected, presumed negative. Swab NASOPHARYNGEAL STRUCTURE / Unknown Non-blood Collection / Unknown 03/02/2024 1:57 PM CDT 03/02/2024 2:14 PM CDT Narrative [facility] - 03/02/2024 3:05 PM CDT Testing was performed using the Xpert Xpress CoV2/Flu/RSV Assay on the [employer] GeneXpert Instrument. This test should be ordered for the detection of SARS-CoV-2, influenza, and RSV viruses in individuals who meet clinical and/or epidemiological criteria. Test performance is unknown in asymptomatic patients. This test is for in vitro diagnostic use under the FDA EUA for laboratories certified under CLIA to perform high or moderate complexity testing. This test has not been FDA cleared or approved. A negative result does not rule out the presence of PCR inhibitors in the specimen or target RNA in concentration below the limit of detection for the assay. If only one viral target is positive but coinfection with multiple targets is suspected, the sample should be re-tested with another FDA cleared, approved, or authorized test, if coinfection would change clinical management. This test was validated by the [facility]. These laboratories are certified under the Clinical Laboratory Improvement Amendments of 1988 (CLIA-88) as qualified to perform high complexity laboratory testing. Raúl Bernard MD LAB - MICRO GENERAL ORDERABLES Performing Organization Address City/[facility]/ZIP Co de Phone Number [facility] Lab [address] Lab (1st floor, no room number) [place] [id number] [place] [address] * Extra Heparinized Syringe (03/02/2024 1:56 PM CDT) [facility] Hold Specimen [facility] 03/02/2024 3:17 PM CDT LABORATORY Blood, venous BLOOD SPECIMEN / Unknown Venipuncture / Unknown 03/02/2024 1:56 PM CDT 03/02/2024 2:14 PM CDT Raúl Bernard MD LAB - BLOOD ORDERABL ES Performing Organization Address City/[facility]/ZIP Co de Phone Number [facility] [address] Lab (1st floor, no room number) [place] [address] * Extra Blood Bank Purple Top Tube (03/02/2024 1:56 PM CDT) Only the most recent of2 resultswithin the time period is included. Hold Specimen [facility] 03/02/2024 3:17 PM CDT [facility] Blood BLOOD SPECIMEN / Unknown Venipuncture / Unknown 03/02/2024 1:56 PM CDT 03/02/2024 2:15 PM CDT Raúl Bernard MD LAB - BLOOD ORDERABL ES Performing Organization Address City/[facility]/ZIP Co de Phone Number [facility] Lab [address] Lab (1st floor, no room number) [place] [address] * Extra Purple Top Tube (03/02/2024 1:56 PM CDT) Only the most recent of2 resultswithin the time period is included. Hold Specimen [facility] 03/02/2024 3:17 PM CDT [facility] Blood BLOOD SPECIMEN / Unknown Venipuncture / Unknown 03/02/2024 1:56 PM CDT 03/02/2024 2:15 PM CDT Raúl Bernard MD LAB - BLOOD ORDERABL ES Performing Organization Address [facility] Co de Phone Number [facility] Lab [address] Lab (1st floor, no room number) [place] [address] * Extra Green Top ([place] Heparin) Tube (03/02/2024 1:56 PM CDT) Only the most recent of2 resultswithin the time period is included. Hold Specimen [facility] 03/02/2024 3:17 PM CDT [facility] Blood BLOOD SPECIMEN / Unknown Venipuncture / Unknown 03/02/2024 1:56 PM CDT 03/02/2024 2:15 PM CDT Raúl Bernard MD LAB - BLOOD ORDERABL ES [facility] Lab [address] Lab (1st floor, no room number) [place] [phone] [place] [address] * Extra Red Top Tube (03/02/2024 1:56 PM CDT) Hold Specimen [facility] 03/02/2024 3:17 PM CDT [facility] Blood BLOOD SPECIMEN / Unknown Venipuncture / Unknown 03/02/2024 1:56 PM CDT 03/02/2024 2:15 PM CDT Raúl Bernard MD LAB - BLOOD ORDERABL ES [facility] Lab [address] Lab (1st floor, no room number) [address] [place] [address] * Extra Blue Top Tube (03/02/2024 1:56 PM CDT) Only the most recent of2 resultswithin the time period is included. Hold Specimen [facility] 03/02/2024 3:17 PM CDT LABORATORY Blood BLOOD SPECIMEN / Unknown Venipuncture / Unknown 03/02/2024 1:56 PM CDT 03/02/2024 2:15 PM CDT Raúl Bernard MD LAB - BLOOD ORDERABL ES [facility] Lab [address] Lab (1st floor, no room number) [place] [phone] [place] [address] * Hemoglobin A1c (03/02/2024 1:56 PM CDT) Hemoglobin A1C 5.5 <5.7 % 03/02/2024 7:31 PM CDT [facility] Comment: Normal <5.7% Prediabetes 5.7-6.4% ?? Diabetes 6.5% or higher Note: Adopted from ADA consensus guidelines. Blood BLOOD SPECIMEN / Unknown Venipuncture / Unknown 03/02/2024 1:56 PM CDT 03/02/2024 2:15 PM CDT Ron Tripathi MD LAB - BLOOD ORDERABL ES [facility] [address] Lab (1st floor, no room number) [place] [address] * Hepatitis B Surface Antibody (02/26/2024 11:13 [...] ORDER NADIA [facility] [place] [facility] [address] [facility] [facility], [address] [address] * (ABNORMAL) Iron and iron binding [...] MD LAB - BLOOD ORDERABL ES LABORATORY [facility] [address] Lab (1st floor, no room number) [place] [address] * (ABNORMAL) Ferritin (02/26/2024 6:10 AM CDT) Ferritin 1,463(H) 31 - 409 ng/mL 02/26/2024 12:37 PM CDT [facility] Blood STRUCTURE OF RIGHT HAND / Unknown Venipuncture / Unknown 02/26/2024 6:10 AM CDT 02/26/2024 6:20 AM CDT Momo Hercules MD LAB - BLOOD ORDERABL ES [facility] [place] [facility] [address] [facility], [address] [address] * UPPER GI ENDOSCOPY (02/25/2024 3:01 PM CDT) Upper GI Endoscopy [facility] Patient Name: Herminio Victor ? Procedure Date: 02/25/2024 3:01 PM ? Date of : 1965 ?Admit Type: Inpatient Age: 58 ? Gender: Male Attending MD: MOMO HERCULES MD, ?Total Sedation Time: _6_ minutes of continuous bedside 1:1 Instrument Name: 209 - Gastroscope ? Procedure: ?Upper GI endoscopy Indications: ?Anemia Providers: ?MOMO HERCUELS MD (Doctor) Referring MD: ? Medicines: ?Midazolam [...] ?Olympus Gastroscope, Model # GIF-H190, Censitrac # ?[id number] was introduced through the mouth, and ?advanced [...] Note Initiated On: 02/25/2024 3:01 PM MRN: ?[id number] Procedure Date: ? 02/25/2024 3:01:34 PM Total Procedure Duration: 0 hours 2 minutes 56 seconds Estimated Blood Loss: ? Scope In: 3:19:43 PM Scope Out: 3:22:39 PM RADIOLOGY RESULTS 02/25/2024 3:01 PM CDT Momo Hercules MD PROCEDURES RADIOLOGY RESULTS * Hepatitis B surface antigen (02/25/2024 6:45 AM CDT) Hepatitis B Surface Antigen Nonreactive Nonreactive 02/25/2024 10:36 AM CDT [facility] Blood STRUCTURE OF LEFT UPPER LIMB / Unknown Venipuncture / Unknown 02/25/2024 6:45 AM CDT 02/25/2024 6:51 AM CDT Mann Brush DO LAB - BLOOD ORDERABL ES [facility] [place] [facility] [address] [facility], [address] [place] [address] * (ABNORMAL) Occult blood stool (02/24/2024 11:31 AM CDT) Occult Blood Positive(A ) Negative [facility] 02/24/2024 11:40 AM CDT LABORATORY Stool RECTAL CONTENTS / Unknown Non-blood Collection / Unknown 02/24/2024 11:31 AM CDT 02/24/2024 11:38 AM CDT Jae Noel MD LAB - STOOLS ORDERAB LES LABORATORY [facility] [address] [facility] Lab (1st floor, no room number) [place] [id number] * CT Head w/o Contrast (02/24/2024 10:42 AM CDT) Anatomical Region Laterality Modality Head, SUBRAD CT NEURO, SUBRA D CT NEURO, UMP CT NEURO, RAD CT Computed Tomography Impressions 02/24/2024 11:11 AM CDT IMPRESSION: 1. No acute intracranial pathology. 2. Chronic small vessel ischemic disease and generalized cerebral volume loss. FLAKO ZUNIGA MD SYSTEM ID: ??[id number] Narrative 02/24/2024 11:11 AM CDT EXAM: CT HEAD W/O CONTRAST ??02/24/2024 10:42 AM HISTORY: ??Altered mental status, cocnern for ICH, on coumadin ?? COMPARISON: ??No prior similar studies TECHNIQUE: Using multidetector thin collimation helical acquisition technique, axial, coronal and sagittal CT images from the skull base to the vertex were obtained without intravenous contrast. Ash Collector (topogram) image(s) also obtained and reviewed. Dose [...] the vertex were obtained without intravenous contrast. Ash Collector (topogram) image(s) also obtained and reviewed. Dose [...] volume loss. FLAKO ZUNIGA MD SYSTEM ID: [id number] Jae Noel MD IM CT ORDERABLES * [...] AM CDT 02/24/2024 10:18 AM CDT Jae DEAN - [facility]AT[facility] POC [facility] Lab [address] Lab (1st floor, no room number) [place] [address], [facility] * Hepatitis C (HIM External Result) (01/04/2022 12:00 PM CDT) Hep C HIM See Scanned Document EXTERNAL LAB Comment:Nonreactive 01/04/2022 12:0 0 PM CDT Narrative EXTERNAL LAB - 01/04/2022 12:00 PM CDT LAB RESULT [facility] [address] [place] [address] Provider Outside LAB - HIM EXTERNAL R ESULT EXTERNAL LAB External Lab * (ABNORMAL) Lipid panel (12/07/2017 12:34 PM DISC RECORDIST) Cholesterol 115 <200 mg/dL 12/07/2017 1:27 PM DISC RECORDIST [facility] Triglycerides 84 <150 mg/dL 12/07/2017 1:27 PM DISC RECORDIST [facility] HDL Cholesterol 37(L) >39 mg/dL 8 1:27 PM [facility] LDL Cholesterol Calculated 61 <100 mg/dL 12/07/2017 1:27 PM DISC RECORDIST [facility] Comment:Desirable: <100 mg/d l Non HDL Cholesterol 78 <130 mg/dL 12/07/2017 1:27 PM DISC RECORDIST [facility] Blood specimen (specimen) 12/07/2017 12:34 PM DISC RECORDIST 12/07/2017 12:58 PM DISC RECORDIST Michele Fuentes MD LAB - BLOOD ORD ERABLES [facility] [address] [id number] [phone] from Last 3 Months or Most Recently Relevant to Health Maintenance Advance Directives For more information, please contact: [phone] * Full Code (Latest Code Status on File) Date Activated Date Inactivated Comments 05/23/2024 8:47 PM All basic and advanced life-sustaining interventions are performed as appropriate Question Answer Comments Code status determined by: Discussion with patie nt/ legal decision maker * Full Code Date Activated Date Inactivated Comments 05/23/2024 4:23 PM 05/23/2024 8:47 PM All basic an d advanced life-sustaining interventions are performed as appropriate Question Answer Comments Code status determined by: Discussion with patie nt/ legal decision maker * Full Code Date Activated Date Inactivated Comments 03/02/2024 6:55 PM 03/12/2024 6:41 PM All basic and advanced life-sustaining interventions are performed as appropriate Question Answer Comments Code status determined by: Discussion with patie nt/ legal decision maker * Full Code Date Activated Date Inactivated Comments 02/24/2024 2:16 PM 02/26/2024 5:36 PM All basic an d advanced life-sustaining interventions are performed as appropriate Question Answer Comments Code status determined by: Discussion with patie nt/ legal decision maker * Full Code Date Activated Date Inactivated Comments 01/26/2018 12:25 PM 01/25/2019 11:45 AM Care Teams Back Tufter Relationship Specialty Start Date End Date Preet Huff PCP - General 06/24/11
--- OUTSIDE RECORDS SUMMARY | 2024-05-24 23:43 | XMS_ITS | Encounter Summary ---
Author Organization [place] Address [facility] 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) Emergency Dept [address] [place] [address] Referral ID Status Reason Start Date Expiration Date Visits Re quested Visits Authorized [id number] 1 1 Encounter Details Date Type Department Care Team (Late st Contact Info) Description 05/23/2024 6:02 PM CDT Anesthesia Event [facility] [address] [place] [address] Tom Castro MD [facility] [place] [address] [place], [place] [address] Pan Michelle MD [facility] [address] [place], [place] [id number] Anesthesia Record Procedure Summary Procedure Name Responsible Anesthesiologist Anesthesia Start Time Anesthesia Stop Time Incision and drainage, debridement of scrotal skin and subcutaneous tissues for necrotizing soft tissue infection of the scrotum (Scrotum) Tom Castro MD 05/23/24 18005/23/241918 Events Date Time Event Comment 05/23/2024 1711 1718 KID CLUB ATTENDANT Ready for Procedure 180 AN REASSESS I attest that I have identified and re-evaluated the patient immediately before the induction of anesthesia and I am satisfied that the anesthetic plan is suitable for the patient's condition and procedure. The first vital signs recorded are pre- induction. Donnell Ramos APRN KID CLUB ATTENDANT 180 An Start Anesthesia Star t is defined as when the anesthesia provider assumed care, began anesthesia prep, remained continuously present with the patient, and excludes all time for performing the pre-anesthesia evaluation. The Pre-Anesthesia Evaluation was completed before Anesthesia Start. 180 An Start Data 181 An Induction 181 MD Present 182 An Intubation 182 MD Present 182 Anesthesia Ready for Procedu re 185 MD Present 190 Quick Note Reversal medica tion, suctioned, strong grasp, opens eyes to commands, extubated awake. Oxygen per face mask to PACU. 191 AN Extubation All extubation criteria met prior to removal. 1912 an stop data 1918 An Stop Electronically signed by Donnell Ramos APRN CRNA on May 23, 2024 7:19 PM 191 MD Present Meds Name Total fentaNYL 50 mcg/mL 125 mcg lidocaine 2% 50 mg propofol 10 mg/mL 200 mg rocuronium 10 mg/mL 50 mg dexamethasone (DECADRON) 4 mg/mL 4 mg ondansetron 2 mg/mL 4 mg glycopyrrolate 0.2 mg/mL 0.2 mg sugammadex (BRIDION) 200mg/2mL 200 mg sodium chloride 0.9 % infusion 650 mL * Agents Name O2 N2O Air Exp Sevoflurane Exp Isoflurane Exp Desflurane Ins Sevoflurane Ins Isoflurane Ins Desflurane * Blood No blood administrations on file. Lines, Drains, and Airways Type Details Placement Removal Hemodialysis Vascular Access AV fistula; Left; Thigh 03/04/24 0939 by Peripheral IV 05/23/24; 1355; 18 G ; Anterior, Right; Upper forearm; Chlorhexidine 05/23/24 1355 by Kassidy Morel RN Peripheral IV 05/23/24; 1434; 20 G ; Anterior, Left; Lower forearm; Chlorhexidine 05/23/24 1434 by Kassidy Morel RN Incision/Surgical Site 05/23/24; 1855; S crotum; fluffs/roll x1 surgical incision/wound 05/23/241854 by Lisa Guerrero RN Packing 05/23/24; 1899; Scro janelle; Gauze bandage roll (Kerlix); 1 ([address] Barron) 05/23/241899 by Lisa Guerrero RN ETT Placement Date: 05/23/24; Placement Time: 1820 (created via procedure documentation); Mask Ventilation: 1; Induction Type: Intravenous; Ease of Intubation: Easy; Technique: Video laryngoscopy; Tube Size: 8 mm; VL Blade Size: Walnut scope 3; Grade View: 1; Placement Person: KID CLUB ATTENDANT; Attempts: 1 05/23/241820 by Donnell Ramos APRN KID CLUB ATTENDANT 05/23/241909 by Donnell Ramos APRN KID CLUB ATTENDANT Urethral Catheter 05/23/24; 183; No; Surgical procedure; 16 fr 05/23/241838 by Lisa Guerrero RN 05/23/241899 by Lisa Guerrero RN documented in this encounter Social History [...] file Gender Identity Male 12/05/2017 10:39 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 status CV/Hemodynamics: Uneventful Sign Out: Acceptable CV status; No obvious hypovolemia; No obvious fluid overload Other NRE: NONE DID A NON-ROUTINE EVENT OCCUR? No Last vitals: Vitals Value Taken Time BP 146/61 05/23/241929 Temp 97.2 ??F (36.2 ??C) 05/23/241929 Pulse 71 05/23/241930 Resp 10 05/23/241930 SpO2 95 % 05/23/241930 Vitals shown include unfiled device data. Electronically Signed By: Tom Castro MD May 23, 2024 7:32 PM * Anesthesia Procedure Notes - Donnell Ramos APRN CRNA - 05/23/2024 6:31 PM CDT Associated Order(s): Airway Airway Patient location during procedure: OR Procedure Start/Stop Times: 05/23/2024 6:21 PM Staff - KID CLUB ATTENDANT: Yasemin Almaguer APRN CRNA Performed By: CRNAIndications and Patient Condition Indications for airway management: millicent-procedural Induction type:intravenous Mask difficulty assessment: 1 - vent by mask Final Airway Details Final airway type: endotracheal airway Successful airway: ETT - single Endotracheal Airway Details ETT size (mm): 8.0 Cuffed: yes Cuff volume (mL): 7 Successful intubation technique: video laryngoscopy VL Blade Size: Glidescope 3 Grade View of Cords: 1 Position: Center Measured from: lips Secured at (cm): 23 Bite block used: None Post intubation assessment Placement verified by: capnometry, equal breath sounds and chest rise Number of attempts at approach: 1 Number of other approaches attempted: 0 Secured with: tape Ease of procedure: easy Dentition: Intact and Unchanged Medication(s) Administered Medication Administration Time: 05/23/2024 6:21 PM * Anesthesia Preprocedure Evaluation - Pan Michelle MD - 05/23/2024 5:11 PM CDT Anesthesia Pre-Procedure Evaluation Patient: Herminio Victor : 1965 Procedure : Procedure(s): INCISION AND DRAINAGE, debridement of scrotal skin and subcutaneous tissues for necrotizing soft tissue infection of the scrotum, SCROTUM Past Medical History: Diagnosis Date A-V fistula (H24) left forearm Anemia Anemia Blind Chronic in-center hemodialysis status (H24) Cognitive deficits Diabetes mellitus (H) DVT (deep venous thrombosis) (H) ESRD (end stage renal disease) (H) dialysis T--[facility] History of staph septicemia 12/20/2015 Hyperkalemia Hyperlipemia Hyperlipidaemia Hypertension Hypertension Kidney disease Kidney disease Orthostasis Retinopathy Sleep apnea CPAP Syncope Past Surgical History: Procedure Laterality Date ABDOMEN SURGERY AV FISTULA OR GRAFT ARTERIAL BYPASS GRAFT FEMOROPOPLITEAL 08/09/2012 Procedure: BYPASS GRAFT FEMOROPOPLITEAL; REDO RIGHT PROFUNDUS FEMORAL TO COMMON FEMORAL ACCESS GRAFT WITH PTFE (POLY TETRA FLOROETHELINE GRAFT), REMOVAL COMMON FEMORAL VEIN STENT, GRAFT EMBOLECTOMY; Surgeon: Rober Buenrostro MD; Location: OR C PLACE CATH AV DIALYSIS SHUNT left thigh 05/23 COLONOSCOPY N/A 03/08/2024 Procedure: Colonoscopy with polypectomy by cold biopsy forceps; Surgeon: Steven Savage MD; Location: GI CREATE FISTULA ARTERIOVENOUS LOWER EXTREMITY 06/20/2013 Procedure: CREATE FISTULA ARTERIOVENOUS LOWER EXTREMITY; LEFT GROIN PTFE DIALYSIS ACCESS; Surgeon: Rober Buenrostro MD; Location: OR CREATE FISTULA ARTERIOVENOUS LOWER EXTREMITY Left 07/02/2015 Procedure: CREATE FISTULA ARTERIOVENOUS LOWER EXTREMITY; Surgeon: Rober Buenrostro MD; Location: OR CREATE FISTULA ARTERIOVENOUS LOWER EXTREMITY Left 03/05/2016 Procedure: CREATE FISTULA ARTERIOVENOUS LOWER EXTREMITY; Surgeon: Rober Buenrostro MD; Location: OR CREATE FISTULA ARTERIOVENOUS UPPER EXTREMITY 10/20/2011 Procedure:CREATE FISTULA ARTERIOVENOUS UPPER EXTREMITY; VEIN PATCH RIGHT ARM ARTERIOVENOUS FISTULA WITH BOVINE PATCH; Surgeon:ROBER BUENROSTRO; Location: OR CREATE GRAFT LOOP ARTERIOVENOUS LOWER EXTREMITY 05/03/2012 Procedure: CREATE GRAFT LOOP ARTERIOVENOUS LOWER EXTREMITY; RIGHT GROIN LOOP GRAFT WITH CADAVER FEMORAL ARTERY; Surgeon: Rober Buenrostro MD; Location: OR CREATE GRAFT LOOP ARTERIOVENOUS LOWER EXTREMITY Left 08/13/2015 Procedure: CREATE GRAFT ARTERIOVENOUS LOWER EXTREMITY; Surgeon: Rober Buenrostro MD; Location: OR ESOPHAGOSCOPY, GASTROSCOPY, DUODENOSCOPY (EGD), COMBINED N/A 02/25/2024 Procedure: Esophagoscopy, gastroscopy, duodenoscopy (EGD), combined; Surgeon: Benjie Flores MD; Location: [facility] GI ESOPHAGOSCOPY, GASTROSCOPY, DUODENOSCOPY (EGD), COMBINED N/A 03/06/2024 Procedure: ESOPHAGOGASTRODUODENOSCOPY; Surgeon: Steven Savage MD; Location: OR GENITOURINARY SURGERY TURP,CIRCUMCISION INSERT CATHETER VENOUS TRANSLUMBAR 08/08/2012 Procedure: INSERT CATHETER VENOUS TRANSLUMBAR; LUMBAR TUNNEL CATH PLACEMENT.; Surgeon: Michele Fuentes MD; Location: OR IR DIALYSIS FISTULOGRAM LEFT 01/25/2019 IR DIALYSIS FISTULOGRAM LEFT 10/02/2019 IR DIALYSIS FISTULOGRAM LEFT 03/18/2020 IR DIALYSIS FISTULOGRAM LEFT 02/11/2022 IRRIGATION AND DEBRIDEMENT FOOT, COMBINED Left 12/16/2017 Procedure: COMBINED IRRIGATION AND DEBRIDEMENT FOOT;; Surgeon: Rober Buenrostro MD; Location: OR IRRIGATION AND DEBRIDEMENT LOWER EXTREMITY, COMBINED Left 06/04/2014 Procedure: COMBINED IRRIGATION AND DEBRIDEMENT LOWER EXTREMITY; Surgeon: Rober Buenrostro MD; Location: SD IRRIGATION AND DEBRIDEMENT LOWER EXTREMITY, COMBINED Left 12/19/2015 Procedure: COMBINED IRRIGATION AND DEBRIDEMENT LOWER EXTREMITY; Surgeon: Honorio Aceves MD; Location: OR REVISION FISTULA ARTERIOVENOUS LOWER EXTREMITY 05/08/2014 Procedure: REVISION FISTULA ARTERIOVENOUS LOWER EXTREMITY; Surgeon: Rober Buenrostro MD; Location: SD REVISION FISTULA ARTERIOVENOUS LOWER EXTREMITY Left 06/04/2014 Procedure: REVISION FISTULA ARTERIOVENOUS LOWER EXTREMITY; Surgeon: Rober Buenrostro MD; Location: SD REVISION FISTULA ARTERIOVENOUS LOWER EXTREMITY Left 11/19/2015 Procedure: REVISION FISTULA ARTERIOVENOUS LOWER EXTREMITY; Surgeon: Rober Buenrostro MD; Location: OR REVISION FISTULA ARTERIOVENOUS LOWER EXTREMITY Left 12/16/2017 Procedure: REVISION FISTULA ARTERIOVENOUS LOWER EXTREMITY; LEFT THIGH ABF FISTOGRAM, ANGIOPLASTY OFOUTFLOW VENOUS STENOSIS, BANDING LEFT ABF, IRRIGATION AND DEBRIDEMENT LEFT FOOT ULCER (C-ARM); Surgeon: Rober Buenrostro MD; Location: [facility] OR THROMBECTOMY LOWER EXTREMITY 08/09/2012 Procedure: THROMBECTOMY LOWER EXTREMITY;; Surgeon: Rober Buenrostro MD; Location: [facility] OR Allergies Allergen Reactions Dihydroxyaluminum Aminoacetate Nausea GI bleeding Aspirin GI Disturbance and Rash PN: LW Reaction: unknown Social History Tobacco Use Smoking status: Never Smokeless tobacco: Never Substance Use Topics Alcohol use: No Wt Readings from Last 1 Encounters: 05/23/24 83.9 kg (185 lb) Anesthesia Evaluation ROS/MED HX ENT/Pulmonary: (+) sleep apnea, Neurologic: Comment: Cognitive disorder Cardiovascular: (+) Dyslipidemia hypertension- - - - - fainting (syncope). METS/Exercise Tolerance: Hematologic: (+) anemia, Musculoskeletal: - neg musculoskeletal ROS GI/Hepatic: Renal/Genitourinary: (+) renal disease, type: ESRD, Pt requires dialysis, type: Hemodialysis, Endo: (+) type I DM, Psychiatric/Substance Use: Infectious Disease: Malignancy: Other: Physical Exam Airway Mallampati: II TM distance: > 3 FB Neck ROM: full Mouth opening: > 3 cm Respiratory Devices and Support Dental (+) Removable bridges or other hardware Cardiovascular cardiovascular exam normal Pulmonary pulmonary exam normal OUTSIDE LABS: CBC: Lab Results Component Value Date WBC 7.8 05/23/2024 WBC 9.9 03/11/2024 HGB 9.7 (L) 05/23/2024 HGB 8.1 (L) 03/12/2024 HCT 32.9 (L) 05/23/2024 HCT 23.8 (L) 03/11/2024 PLT 162 05/23/2024 PLT 154 03/11/2024 BMP: Lab Results Component Value Date NA 134 (L) 05/23/2024 NA 123 (L) 03/12/2024 POTASSIUM 3.6 05/23/2024 POTASSIUM 4.9 03/12/2024 CHLORIDE 95 (L) 05/23/2024 CHLORIDE 87 (L) 03/12/2024 CO2 29 05/23/2024 CO2 23 03/12/2024 BUN 19.9 05/23/2024 BUN 48.4 (H) 03/12/2024 CR 4.52 (H) 05/23/2024 CR 7.98 (H) 03/12/2024 GLC 175 (H) 05/23/2024 GLC 92 03/12/2024 COAGS: Lab Results Component Value Date PTT 39 (H) 02/11/2022 INR 1.29 (H) 05/23/2024 POC: Lab Results Component Value Date BGM 72 01/25/2019 HEPATIC: Lab Results Component Value Date ALBUMIN 3.2 (L) 05/23/2024 PROTTOTAL 7.1 05/23/2024 ALT 26 05/23/2024 AST 21 05/23/2024 ALKPHOS 72 05/23/2024 BILITOTAL 0.3 05/23/2024 DARLINE <10 (L) 03/02/2024 OTHER: Lab Results Component Value Date LACT 0.9 05/23/2024 A1C 5.5 03/02/2024 JON 9.1 05/23/2024 PHOS 3.0 03/12/2024 MAG 2.1 06/17/2014 LIPASE 154 12/16/2015 Anesthesia Plan ASA Status: 4, emergent Anesthesia Type: General. - Airway: ETT Induction: Intravenous. Maintenance: Balanced. Consents Anesthesia Plan(s) and associated risks, benefits, and realistic alternatives discussed. Questions answered and patient/sales representative printing(s) expressed understanding. - Discussed: - Discussed with: Patient - Extended Intubation/Ventilatory Support Discussed: No. - Patient is DNR/DNI Status: No Use of blood products discussed: No . Postoperative Care Pain management: IV analgesics, Oral pain medications, Multi-modal analgesia. PONV prophylaxis: Ondansetron (or other 5HT-3), Dexamethasone or Solumedrol Comments: Pan Michelle MD I have reviewed the pertinent notes and labs in the chart from the past 30 days and (re)examined the patient. Any updates or changes from those notes are reflected in this note. # Hyponatremia: Lowest Na = 134 mmol/L in last 30 days, will monitor as appropriate # Hypoalbuminemia: Lowest albumin = 3.2 g/dL at 05/23/2024 1:50 PM, will monitor as appropriate # Drug Induced Coagulation Defect: home medication list includes an anticoagulant medication # Obesity: Estimated body mass index is 31.76 kg/m?? as calculated from the following: Height as of this encounter: 1.626 m (5' 4). Weight as of this encounter: 83.9 kg (185 lb). 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 Anesthesia Type: General Note: Oropharynx: spontaneously breathing Level of Consciousness: awake Oxygen Supplementation: face mask Independent Airway: airway patency satisfactory and stable Dentition: dentition unchanged Vital Signs Stable: post-procedure vital signs reviewed and stable Report to RN Given: handoff report given Patient transferred to: PACU Comments: Awake, alert, oxygen per face mask. Vitals: Vitals Value Taken Time BP 157/62 05/23/241913 Temp Pulse 66 05/23/241917 Resp 12 05/23/241917 SpO2 100 % 05/23/241917 Vitals shown include unfiled device data. Electronically Signed By: Donnell Ramos APRN CRNA May 23, 2024 7:19 PM documented in this encounter Plan of Treatment Not on file documented as of this encounter Procedures Procedure Name Priority Date/Time Associated Diagnosis Comments ANE AIRWAY ETT PERFORMABLE Routine 05/23/2024 6:21 PM CDT documented in this encounter Results * ANE AIRWAY ETT PERFORMABLE (05/23/2024 6:21 PM CDT) Narrative Donnell Ramos APRN CRNA - 05/23/2024 6:21 PM CDT Donnell Ramos APRN CRNA ? 05/23/2024 ??6:33 PM Airway ? Patient location during procedure: OR ? Procedure Start/Stop Times: 05/23/2024 6:21 PM Staff - ? KID CLUB ATTENDANT: [place], [place], EXCEL DEVELOPER KID CLUB ATTENDANT ? Performed By: CRNAIndications and Patient Condition [...] Time: 05/23/2024 6:21 PM Tom Castro MD ID ANESTHESIA documented in this encounter Visit Diagnoses Not on filedocumented in this encounter Administered Medications Inactive Administered Medications - up to 3 most recent administrations Medication Order MAR Action Action Date Dose Rate Site dexAMETHasone (DECADRON) injection Intravenous, PRN, Administer over 1 Minutes, Starting on Tue05/23/24 at 1821, Anesthesia Intra-op $Given 05/23/2024 6:21 PM CDT 4 mg fentaNYL (PF) (SUBLIMAZE) injection Intravenous, PRN, Administer over 3-5 Minutes, Starting on Tue05/23/24 at 1821, Anesthesia Intra-op $Given 05/23/2024 6:52 PM CDT 25 mcg $Given 05/23/2024 6:21 PM CDT 100 mcg glycopyrrolate (ROBINUL) injection Intravenous, PRN, Administer over 1-2 Minutes, Starting on Tue05/23/24 at 1821, Anesthesia Intra-op $Given 05/23/2024 6:21 PM CDT 0.2 mg lidocaine 2% injection (MDV) Intravenous, PRN, Starting on Tue05/23/24 at 1821, Anesthesia Intra-op $Given 05/23/2024 6:21 PM CDT 50 mg ondansetron (ZOFRAN) injection Intravenous, PRN, Administer over 2-5 Minutes, Starting on Tue05/23/24 at 1827, Anesthesia Intra-op $Given 05/23/2024 6:27 PM CDT 4 mg propofol (DIPRIVAN) injection 10 mg/mL vial Intravenous, PRN, Starting on Tue05/23/24 at 1821, Anesthesia Intra-op $Given 05/23/2024 6:21 PM CDT 200 mg rocuronium injection Intravenous, PRN, Starting on Tue05/23/24 at 1821, Anesthesia Intra-op $Given 05/23/2024 6:21 PM CDT 50 mg sodium chloride 0.9 % infusion at 10 mL/hr, Intravenous, CONTINUOUS, IF patient on dialysis., Pre-procedure, Starting on Tue05/23/24 at 1705, Until Tue05/23/24 at 1913 $New Bag 05/23/2024 5:55 PM CDT sugammadex (BRIDION) injection Intravenous, PRN, Starting on Tue05/23/24 at 1903, Anesthesia Intra-op $Given 05/23/2024 7:03 PM CDT 200 mg documented in this encounter Care Teams Printing Engineer Relationship Specialty Start Date End Date Preet Huff PCP - General 06/24/11 documented as of this encounter
--- OUTSIDE RECORDS SUMMARY | 2024-05-24 23:43 | XMS_ITS | Referral Summary ---
Author Organization [facility] Address [address] [place] [address] Care Team Providers Care Recorder Helper Seismograph Name Role Phone Preet Huff Hans Primary Care Provider [phone] Encounters Date Type Department Care Team Description 05/23/2024 6:02 PM CDT Anesthesia Event [facility] PeriOp Services [address] [place] [address] Tom Castro MD Larson, Matthew Ray, MD 05/23/2024 6:00 PM CDT - 05/23/2024 7:00 PM CDT Surgery [facility] [address] [place] [address] Lizandro Barron MD Incision and drainage, debridement of scrotal skin and subcutaneous tissues for necrotizing soft tissue infection of the scrotum 05/23/2024 Travel 05/23/2024 1:14 PM CDT - Present Hospital Encounter [place] [address] Medical Surgical [address] [place] [address] Vi Hernandez DO Cabrera, Jesus F, MD Supratherapeutic INR; Mita's gangrene of scrotum (H28) 03/02/2024 1:54 PM CDT - 03/12/2024 4:36 PM CDT Hospital Encounter [place] [address] [facility] Surgical [address] [place] [address] Raúl Bernard MD Biala, Vivek, MD Hypoglycemia (Primary Dx); Anemia, unspecified type; Black stool; Gastrointestinal hemorrhage, unspecified gastrointestinal hemorrhage type Discharge Disposition: [place] [facility] [place]/08/2024 12:20 PM CDT - 03/08/2024 12:50 PM CDT Surgery [facility] [place] [address] [place] [address] Eileen Earl MD Colonoscopy with polypectomy by cold biopsy forceps 03/06/2024 2:08 PM CDT Anesthesia Event [facility] PeriOp Services [address] [place] [address] Nohemy Skinner MD 03/06/2024 1:00 PM CDT - 03/06/2024 2:10 PM [facility] [address] [place] [address] Eileen Earl MD ESOPHAGOGASTRODUODENOSCOPY 03/02/2024 Travel 02/24/2024 9:38 AM CDT - 02/26/2024 3:30 PM CDT Hospital Encounter [facility] 3 Medical Surgical [address] [place] [address] Jae Noel MD Blomquist, Katherine, DO Anemia, unspecified type; ESRD on dialysis (H); Altered mental status, unspecified altered mental status type; Gastrointestinal hemorrhage, unspecified gastrointestinal hemorrhage type Discharge Disposition: Home or Self Care 02/25/2024 2:50 PM CDT - 02/25/2024 3:25 PM CDT Surgery [facility] [place] [address] [place] [address] Momo Hercules MD Esophagoscopy, gastroscopy, duodenoscopy (EGD), [...] dose on Sat and Sun Suspended B Avbxphs-R-Ldcah Acid (WESCAPS PO) Take 1 capsule by [...] file Gender Identity Male 12/05/2017 10:39 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 DESIGN 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 Sexual Orientation Not on file Last Filed [...] 05/23/2024 1:21 PM CDT Plan of Treatment Not on file Medical Devices Implanted Type Area Extract Mixer Device Identifier Shelf Expiration Date Model / Serial / Lot Graft Patch Vasc Xenosure Biologic 0.8x08cm 0.8p8 Implanted:Qty: 1 on 12/16/2017 by Jaxon Saravia MD at [facility] Bone/Tis rocco/Biol ogic Left: Iliac/Fem orals [employer] IN 06/06/2023 0.8P8 / / [id number] Graft Pericardium 8x0.8cm Vascu-Guard Implanted:Qty: 1 on 10/20/2011 at [facility] Right: Arm [employer] 01/16/2016 [id number] / / [id number] Femoral Popliteal Artery Implanted:Qty: 1 on 05/03/2012 by Jaxon Saravia MD at [facility] Right: Groin 12/07/2021 [id number] / [id number] / Description:CADAVER FEMORAL ARTERY RINSED IN A AND B SOLUTION: A SOLUTION LOT #[id number] EXPIRATION DATE 01/09/2014 B SOLUTION LOT #[id number] EXPIRATION DATE 11/15/2013 Graft Propaten Taper 4-7wpm86pu [id number] Implanted:Qty: 1 on 08/09/2012 by Jaxon Saravia MD at [facility] Right: Leg 10/24/2015 [id number] / / [id number] Graft Propaten Taper 4-3tgl25bz [id number] Implanted:Qty: 1 on 06/20/2013 by Jaxon Saravia MD at [facility] Left: Groin [employer] 02/07/2017 [id number] / / [id number] Graft Pericardium 8x0.8cm Vascu-Guard Implanted:Qty: 1 on 05/08/2014 by Jaxon Saravia MD at [facility] Left: Leg [employer] 11/26/2018 [id number] / PN# [id number] / [id number] Procol Vascular Bioprosthesis Implanted:Qty: 1 on 07/02/2015 by Jaxon Saravia MD at [facility] Left: Groin 12/16/2018 [id number] -[id number] / [id number] / Procol Vascular Bioprosthesis Implanted:Qty: 1 on 08/13/2015 by Jaxon Saravia MD at [facility] Left: Groin 12/16/2018 [id number] -[id number] / [id number] -15 / Graft Vasc Bioprosthesis Procol [id number] Implanted:Qty: 1 on 03/05/2016 by Jaxon Saravia MD at [facility] Left: Leg [employer] IN 02/03/2019 [id number] -[id number] / [id number] / Procedures The [...] CDT LIPID PROFILE STAT 12/07/2017 12:34 PM BODY DESIGN CHECKER 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 GLUCOSE BY METER POCT 96 70 - 99 mg/dL 05/24/2024 8:59 PM CDT LABORATORY POC Blood, Capillary BLOOD SPECIMEN / Unknown 05/24/2024 8:52 PM CDT 05/24/2024 8:59 PM CDT Antonino Cheek MD LAB - BEAKER POCT LABORATORY POC [facility] [address] Lab (1st floor, no room number) [address] * (ABNORMAL) INR (05/24/2024 2:16 PM CDT) Only the most recent of18 resultswithin the time period is included. INR 1.16(H) 0.85 - 1.15 05/24/2024 2:34 PM CDT LABORATORY Blood BLOOD SPECIMEN / Unknown Venipuncture / Unknown 05/24/2024 2:16 PM CDT 05/24/2024 2:21 PM CDT Lizandro Barron MD LAB - BLOOD ORDERABL ES Performing Organization Address [facility]/ZIP Co de Phone Number LABORATORY [facility] Lab [address] Lab (1st floor, no room number) [address] * (ABNORMAL) CBC with platelets and differential [...] - 5.3 10e3/uL 05/24/2024 6:17 AM CDT RH LABORATORY Absolute Monocytes 0.5 0.0 - 1.3 10e3/uL 05/24/2024 6:17 AM CDT RH LABORATORY Absolute Eosinophils 0.1 0.0 - 0.7 10e3/uL 05/24/2024 6:17 AM CDT RH LABORATORY Absolute Basophils 0.0 0.0 - 0.2 10e3/uL 05/24/2024 6:17 AM CDT RH LABORATORY Absolute Immature Granulocytes 0.3 <=0.4 10e3/uL 05/24/2024 6:17 AM CDT RH LABORATORY Absolute NRBCs 0.0 10e3/uL 05/24/2024 6:17 AM CDT RH LABORATORY Blood STRUCTURE OF LEFT HAND / Unknown Venipuncture / Unknown 05/24/2024 6:09 AM CDT 05/24/2024 6:14 AM CDT Antonino Cheek MD LAB - BLOOD ORDERABL ES LABORATORY [facility] [address] Lab (1st floor, no room number) [place] [address] * (ABNORMAL) Comprehensive metabolic panel [...] >60 mL/min/1.7 3m2 05/24/2024 6:40 AM CDT LABORATORY Comment:eGFR calculated us2020 CKD-EPI equation. Calcium 9.3 8.8 - 10.4 mg/dL 05/24/2024 6:40 AM CDT LABORATORY Comment:Reference intervals for this test were updated on 04/24/2024 to reflect our healthy population more accurately. There may be differences in the flagging of prior results with similar values performed with this method. Those prior results can be interpreted in the context of the updated reference intervals. Chloride 94(L) 98 - 107 mmol/L 05/24/2024 6:40 AM CDT LABORATORY Glucose 115(H) 70 - 99 mg/dL 05/24/2024 6:40 AM CDT RH LABORATORY Alkaline Phosphatase 62 40 - 150 U/L 05/24/2024 6:40 AM CDT LABORATORY AST 13 0 - 45 U/L 05/24/2024 6:40 AM CDT RH LABORATORY ALT 19 0 - 70 U/L 05/24/2024 6:40 AM CDT LABORATORY Protein Total 6.7 6.4 - 8.3 g/dL 05/24/2024 6:40 AM CDT LABORATORY Albumin 3.0(L) 3.5 - 5.2 g/dL 05/24/2024 6:40 AM CDT LABORATORY Bilirubin Total 0.5 <=1.2 mg/dL 05/24/2024 6:40 AM CDT LABORATORY Blood STRUCTURE OF LEFT HAND / Unknown Venipuncture / Unknown 05/24/2024 6:09 AM CDT 05/24/2024 6:14 AM CDT Antonino Cheek MD LAB - BLOOD ORDERABL ES LABORATORY [facility] [address] [facility] Lab (1st floor, no room number) [place] [address] * (ABNORMAL) Gram Stain (05/23/2024 6:42 PM CDT) Pathologist [facility] Emergency Department GS Culture See corresponding culture for results [...] - MICRO GENERAL ORDERABLES UU IDD LABORATORY [facility] Inf. Diseases Diag. Lab [address] [facility], [address] [place] [address] * ANE AIRWAY ETT PERFORMABLE (05/23/2024 6:21 PM CDT) Narrative Donnell Ramos APRN DIRECTOR OF DIGITAL MARKETING - 05/23/2024 6:21 PM CDT Donnell Ramos APRN DIRECTOR OF DIGITAL MARKETING ? 05/23/2024 ??6:33 PM Airway ? Patient location during procedure: OR ? Procedure Start/Stop Times: 05/23/2024 6:21 PM Staff - ? DIRECTOR OF DIGITAL MARKETING: Yasemin Almaguer APRN CRNA ? Performed By: CRNAIndications and Patient Condition [...] RESULTS QTc 458 ms RADIOLOGY RESULTS P Marcell 54 degrees RADIOLOGY RESULTS R AXIS -5 degrees RADIOLOGY RESULTS T Marcell 24 degrees RADIOLOGY RESULTS Interpretation ECG Sinus rhythm with 1st degree A-V block Septal infarct , age undetermined Abnormal ECG When compared with ECG of 02-Mar-2024 14:00, Septal infarct is now Present No significant change was found Confirmed by - EMERGENCY ROOM, PHYSICIAN ([id number]), assignment desk editor LIZANDRO ZABALA ([id number]) on 05/24/2024 6:44:53 AM RADIOLOGY RESULTS 05/23/2024 [...] 2:35 PM. MIKE SANTANA MD SYSTEM ID: ??[id number] Narrative 05/23/2024 2:[address] ABDOMEN [...] veins which are not included in the qjoug-bi-edyi. MUSCULOSKELETAL: Stable degenerative changes at L4-L5 with [...] veins which are not included in the zdesw-xi-narg. 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 No destructive lesions in the bones. IMPRESSION: 1. 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 2. Other chronic findings as discussed above. Findings were discussed with Dr. Kenna Coe at 2:35 PM. MIKE SANTANA MD SYSTEM ID: [id number] Vi Coe DO IMG CT ORDERABLE S * Adult Type and Screen (05/23/2024 2:07 PM CDT) Only the most recent of5 resultswithin the time period is included. ABO/RH(D) O POS 05/23/2024 1:37 PM CDT RH BLOOD BANK Antibody Screen Negative Negative 05/23/2024 1:37 PM CDT RH BLOOD BANK SPECIMEN EXPIRATION DATE [id number] 05/23/2024 1:37 PM CDT RH BLOOD BANK Blood BLOOD SPECIMEN / Unknown Venipuncture / Unknown 05/23/2024 2:07 PM CDT 05/23/2024 2:10 PM CDT Vi Coe DO LAB - BLOOD BANK TEST ORDER Performing Organization Address [facility]/ZIP Co de Phone Number BLOOD BANK [address] [place] [address] * Lactic acid whole blood (05/23/2024 1:50 PM CDT) Lactic Acid 0.9 0.7 - 2.0 mmol/L 05/23/2024 1:57 PM CDT RH LABORATORY Blood BLOOD SPECIMEN / Unknown Venipuncture / Unknown 05/23/2024 1:50 PM CDT 05/23/2024 1:54 PM CDT Vi Coe DO LAB - BLOOD ORDE MYRANDA LABORATORY [facility] [address] [facility], no room number) [place] [address], [facility] * (ABNORMAL) Renal panel (03/12/2024 6:06 AM [...] - 5.3 mmol/L 03/12/2024 6:35 AM CDT RH LABORATORY Chloride 87(L) 98 - 107 mmol/L 03/12/2024 6:35 AM CDT RH LABORATORY Carbon Dioxide (CO2) 23 22 - 29 mmol/L 03/12/2024 6:35 AM CDT RH LABORATORY Anion Gap 13 7 - 15 mmol/L 03/12/2024 6:35 AM CDT RH LABORATORY Glucose 77 70 - 99 mg/dL 03/12/2024 6:35 AM CDT RH LABORATORY Urea Nitrogen 48.4(H) 8.0 - 23.0 mg/dL 03/12/2024 6:35 AM CDT RH LABORATORY Creatinine 7.98(H) 0.67 - 1.17 mg/dL 03/12/2024 6:35 AM CDT RH LABORATORY GFR Estimate 7(L) [...] - BLOOD ORDERA BLES Performing Organization Address [facility] Co de Phone Number [facility] Lab [address] Lab (1st floor, no room number) [place] [phone] [place] [address] * (ABNORMAL) Hemoglobin (03/12/2024 6:06 AM CDT) Only the most recent of30 resultswithin the time period is included. Hemoglobin 8.1(L) 13.3 - 17.7 g/dL 03/12/2024 6:14 AM CDT LABORATORY Blood STRUCTURE OF RIGHT UPPER LIMB / Unknown Venipuncture / Unknown 03/12/2024 6:06 AM CDT 03/12/2024 6:10 AM CDT Aashish Romero DO LAB - BLOOD ORDER NADIA Performing Organization Address [facility] Co de Phone Number [facility] Lab [address] Lab (1st floor, no room number) [place] [phone], [facility] * Glucose (03/12/2024 6:06 AM CDT) Only the most recent of2 resultswithin the time period is included. Glucose 77 70 - 99 mg/dL 03/12/2024 6:35 AM CDT LABORATORY Blood STRUCTURE OF RIGHT UPPER LIMB / Unknown Venipuncture / Unknown 03/12/2024 6:06 AM CDT 03/12/2024 6:10 AM CDT Ron Tripathi MD LAB - BLOOD ORDERABL ES Performing Organization Address [facility] Co de Phone Number [facility] [address] Lab (1st floor, no room number) [place] [phone], [facility] * (ABNORMAL) CBC with platelets (03/11/2024 7:03 [...] Romero DO LAB - BLOOD ORDER NADIA RH LABORATORY [facility] [address] Lab (1st floor, no room number) [place] [address] * XR Chest Port 1 View (03/11/2024 3:25 AM CDT) Anatomical Region Laterality Modality Chest Digital Radiogra phy 03/11/2024 3:25 AM CDT Impressions 03/11/2024 3:30 AM CDT IMPRESSION: Normal heart size and pulmonary vascularity. Lungs clear. No pneumothorax. Minimal fluid or thickening along the right fissure. Narrative 03/11/2024 3:30 AM CDT EXAM: XR CHEST PORT 1 VIEW LOCATION: [facility] DATE: 03/11/2024 INDICATION: Shortness of breath COMPARISON: None. Procedure Note David Díaz MD - 03/11/2024 EXAM: XR CHEST PORT 1 VIEW LOCATION: [facility] DATE: 03/11/2024 INDICATION: Shortness of breath COMPARISON: None. IMPRESSION: Normal heart size and pulmonary vascularity. Lungs clear. Nopneumothorax. Minimal fluid or thickening along the right fissure. Addis Zhang MD, IMG DIAGNOSTIC TAYLOR GING ORDERABLES * CONDITIONAL [...] Blood Cells RH BLOOD BANK Product Code T9327H98 RH BLOO D BANK Unit Status Transfused RH BLOO D BANK Unit Number [id number] RH B LOOD BANK CROSSMATCH Compatible RH BLOOD BANK CODING SYSTEM [id number] RH BLO OD BANK ISSUE DATE AND TIME [id number] RH BLOOD BANK UNIT ABO/RH O+ RH BLOOD BANK UNIT TYPE ISBT 5100 RH BL OOD BANK 03/10/2024 6:37 PM CDT Eileen Earl MD BLOOD BANK PRODUCT ORDERABLES RH BLOOD BANK [address] [place] [address], [facility] * Morphology Tracking (03/09/2024 9:12 AM CDT) Blood VENOUS LINE / Unknown Venipuncture / Unknown 03/09/2024 9:12 AM CDT 03/09/2024 9:26 AM CDT Antonino Cheek MD LAB - BLOOD ORDERABL ES Performing Organization Address City/[facility]/ZIP Co de Phone Number LABORATORY [facility] Lab [address] Lab (1st floor, no room number) [place] [phone] [place] [address] * Lactate Dehydrogenase (03/09/2024 9:12 AM CDT) Lactate Dehydrogenase 226 0 - 250 U/L 03/09/2024 9:59 AM CDT RH LABORATORY Blood VENOUS LINE / Unknown Venipuncture / Unknown 03/09/2024 9:12 AM CDT 03/09/2024 9:26 AM CDT Antonino Cheek MD LAB - BLOOD ORDERABL ES Performing Organization Address [facility]/ZIP Co de Phone Number LABORATORY [facility] Lab [address] Lab (1st floor, no room number) [place] [phone] [place] [address] * (ABNORMAL) Reticulocyte count (03/09/2024 9:12 AM CDT) % Reticulocyte 2.8(H) 0.5 - 2.0 % 03/09/2024 9:33 AM CDT LABORATORY Absolute Reticulocyte 0.072 0.025 - 0.095 10e6/uL 03/09/2024 9:33 AM CDT RH LABORATORY Blood VENOUS LINE / Unknown Venipuncture / Unknown 03/09/2024 9:12 AM CDT 03/09/2024 9:26 AM CDT Antonino Cheek MD LAB - BLOOD ORDERABL ES LABORATORY [facility] [address] Lab (1st floor, no room number) [place] [phone] [place] [address] * Haptoglobin (03/09/2024 9:12 AM CDT) Haptoglobin 127 30 - 200 mg/dL 03/10/2024 1:23 AM CDT UU LABORATORY Blood VENOUS LINE / Unknown Venipuncture / Unknown 03/09/2024 9:12 AM CDT 03/09/2024 9:26 AM CDT Antonino Cheek MD LAB - BLOOD ORDERABL ES UU LABORATORY [facility] [place] [facility] [address] [facility], [address] [place] [phone] * Bld morphology pathology review (03/09/2024 9:12 AM CDT) Final Diagnosis Peripheral blood for morphology: -Moderate normochromic, normocytic anemia without evidence of red cell regeneration; no morphologic or laboratory features of hemolysis detected -Slight mature neutrophilia without morphologic abnormalities 03/13/2024 10:17 AM T [facility] Comment Review of recent laboratory data notes normal LDH and haptoglobin. The history of GI bleeding and end-stage renal disease on hemodialysis are noted. Both conditions would contribute to the anemia present. 03/13/2024 10:17 AM CDT [facility] Clinical Information Looking for signs of hemolysis 03/13/2024 10:17 AM T [facility] Peripheral Smear ERYTHROCYTES: The [...] than 50: Marked thrombocytopenia 03/13/2024 10:17 AM CDT [facility] Performing Labs The technical component of this testing was completed at [facility], [facility] and [facility] 03/13/2024 10:17 AM CDT [facility] Blood VENOUS LINE / [...] and are necessary for interpretation. Antonino [facility] Path[facility] Lab [address] 1[address], [address] [place] [address] * Bilirubin Direct and Total (03/09/2024 9:12 AM CDT) Bilirubin Direct 0.22 0.00 - 0.30 mg/dL 03/09/2024 9:59 AM CDT RH LABORATORY Bilirubin Total 0.5 <=1.2 mg/dL 03/09/2024 9:59 AM CDT RH LABORATORY Blood VENOUS LINE / Unknown Venipuncture / Unknown 03/09/2024 9:12 AM CDT 03/09/2024 9:26 AM CDT Antonino Cheek MD LAB - BLOOD ORDERABL ES [facility] Lab [address] [facility] Lab (1st floor, no room number) [place] [address] * Surgical Pathology Exam (03/08/2024 1:26 PM CDT) Case Report Surgical Pathology Report ? Case: [id number] ? Authorizing Provider: ??Eileen Earl MD ?Collected: ? 03/08/2024 01:26 PM ? Ordering Location: ? [facility] ?Received: ?03/08/2024 02:01 PM ? [facility] [place] ? Pathologist: ? Jae Cardona MD ? Specimen: ?Rectum, Rectum polyp ? 03/09/2024 10:13 AM CDT LABORATORY Final Diagnosis Rectum, polypectomy: --Hyperplastic polyp. 03/09/2024 10:13 AM CDT LABORATORY Clinical Information Procedure: Colonoscopy with polypectomy by cold biopsy forceps Pre-op Diagnosis: Anemia, unspecified type [D64.9] Post-op Diagnosis: D64.9 - Anemia, unspecified type [ICD-10-CM] 03/09/2024 10:13 AM CDT LABORATORY Gross Description A(1). Rectum, Rectum polyp: The specimen is received in formalin, labeled with the patient's name, medical record number and other identifying information and designated ? rectum polyp? . It consists of 2 english soft tissue fragments ranging from 0.1-0.4 cm. Entirely submitted in one cassette. MARY Gates(ASCP)CM 03/08/2024 2:57 PM 03/09/2024 10:13 AM CDT LABORATORY Microscopic Description Microscopic examination was performed. 03/09/2024 10:13 AM CDT LABORATORY Performing Labs The technical component of this testing was completed at [facility]. Stain controls for all stains resulted within this report have been reviewed and show appropriate reactivity. 03/09/2024 10:13 AM CDT LABORATORY Case Images 03/09/2024 10:13 AM CDT LABORATORY Polyp RECTUM PART / Unknown 03/08/2024 1:26 PM CDT 03/08/2024 2:01 PM CDT Eileen DEAN - DAVID [facility] Lab [address] [facility] Lab (1st floor, no room number) [place] [address], [facility] * COLONOSCOPY (03/08/2024 1:04 PM CDT) COLONOSCOPY Patient Name: Herminio Victor ? Procedure Date: [...] ?oxygen saturations were monitored continuously. The ?Olympus Adult Colonoscope, Model # CF-PU730H, ?Censitrac # [id number] was introduced through the ?anus and advanced [...] Note Initiated On: 03/08/2024 1:04 PM MRN: ?[id number] Procedure Date: ? 03/08/2024 1:04:50 PM Scope [...] US UPPER EXTREMITY VENOUS DUPLEX RIGHT LOCATION: [facility] DATE: 03/07/2024 INDICATION: Swelling, looking for DVT [...] US UPPER EXTREMITY VENOUS DUPLEX RIGHT LOCATION: [facility] DATE: 03/07/2024 INDICATION: Swelling, looking for DVT [...] theproximal to distal forearm. Antonino Cheek MD IMG US ORDERABLES * Single Lumen Midline Placement (03/07/2024 1:34 PM CDT) Narrative Patricio Bocanegra RN - 03/07/2024 1:34 PM CDT Patricio Bocanegra RN ? 03/07/2024 ??1:41 PM Single Lumen Midline Placement Date/Time: 03/07/2024 1:34 [...] procedure a time out was called ?? Pioneer Protocol: the Joint Commission Pioneer Protocol was followed ?? Preparation: Patient was [...] size: 4 Fr Brand: Bard Lot number: [id number] Placement method: venipuncture, MST and ultrasound Number [...] (SST) (03/06/2024 7:55 PM CDT) Hold Specimen [facility] 03/06/2024 9:03 PM CDT LABORATORY Blood BLOOD SPECIMEN / Unknown Venipuncture / Unknown 03/06/2024 7:55 PM CDT 03/06/2024 7:55 PM CDT Ron Tripathi MD LAB - BLOOD ORDERABL ES LABORATORY [facility] Lab [address] Lab (1st floor, no room number) [place] [address], [facility] * (ABNORMAL) Basic metabolic panel (03/06/2024 4:28 [...] - 5.3 mmol/L 03/06/2024 4:54 PM CDT LABORATORY Chloride 82(L) 98 - 107 mmol/L 03/06/2024 4:54 PM CDT RH LABORATORY Carbon Dioxide (CO2) 24 22 - 29 mmol/L 03/06/2024 4:54 PM CDT LABORATORY Anion Gap 15 7 - 15 mmol/L 03/06/2024 4:54 PM CDT RH LABORATORY Urea Nitrogen 50.9(H) 8.0 - 23.0 mg/dL 03/06/2024 4:54 PM CDT RH LABORATORY Creatinine 6.65(H) 0.67 - 1.17 mg/dL 03/06/2024 4:54 PM CDT RH LABORATORY GFR Estimate 9(L) >60 mL/min/1. 73m2 03/06/2024 4:54 PM CDT LABORATORY Calcium 7.1(L) 8.8 - 10.2 mg/dL 03/06/2024 4:54 PM CDT LABORATORY Glucose 196(H) 70 - 99 mg/dL 03/06/2024 4:54 PM CDT LABORATORY Blood STRUCTURE OF LEFT UPPER LIMB / Unknown Venipuncture / Unknown 03/06/2024 4:28 PM CDT 03/06/2024 4:32 PM CDT Antonino Cheek MD LAB - BLOOD ORDERABL ES RH LABORATORY [facility] Lab [address] Lab (1st floor, no room number) [place] [address], [facility] * UPPER GI ENDOSCOPY (03/06/2024 1:21 PM CDT) Pathologist [facility] Upper GI Endoscopy Patient Name: Herminio Victor ? Procedure Date: 03/06/2024 1:21 PM ? [...] ?Olympus Gastroscope, Model # GIF-H190, Censitrac # ?[id number] was introduced through the mouth, and ?advanced [...] Note Initiated On: 03/06/2024 1:21 PM MRN: ?[id number] Procedure Date: ? 03/06/2024 1:21:29 PM Total [...] Blood Cells RH BLOOD BANK Product Code [id number] RH BLOO D BANK Unit Status Transfused RH BLOO D BANK Unit Number [id number] RH B LOOD BANK CROSSMATCH Compatible RH BLOOD BANK CODING SYSTEM [id number] RH BLO OD BANK ISSUE DATE AND TIME [id number] RH BLOOD BANK UNIT ABO/RH O+ RH BLOOD BANK UNIT TYPE ISBT 5100 RH BL OOD BANK 03/06/2024 7:50 AM CDT Antonino Cheek MD BLOOD BANK PRODUCT O RDERABLES BLOOD BANK [address] [place] [address] * (ABNORMAL) Potassium (03/04/2024 6:29 PM CDT) Potassium 5.6(H) 3.4 - 5.3 mmol/L 03/04/2024 7:00 PM CDT LABORATORY Blood STRUCTURE OF LEFT HAND / Unknown Venipuncture / Unknown 03/04/2024 6:29 PM CDT 03/04/2024 6:37 PM CDT Job Her MD LAB - BLOOD ORDERABL ES Performing Organization Address City/[facility]/ZIP Co de Phone Number LABORATORY [facility] [address] Lab (1st floor, no room number) [place] [address] * Cortisol (03/04/2024 6:45 AM CDT) Cortisol 12.0 ug/dL 03/04/2024 11:50 AM CDT U LABORATORY Comment: 6 months and older: 6 to 10 AM Cortisol Reference Range: ??4-22 ug/dL 4 to 8 PM Cortisol Reference Range: ??3-17 ug/dL Blood STRUCTURE OF RIGHT UPPER LIMB / Unknown Venipuncture / Unknown 03/04/2024 6:45 AM CDT 03/04/2024 6:54 AM CDT Aashish Romero DO LAB - BLOOD ORDER NADIA LABORATORY [facility] [place] [facility] [address], [address] [place] [address], [facility] * (ABNORMAL) Ammonia (on ice) (03/02/2024 3:55 PM CDT) Only the most recent of2 resultswithin the time period is included. Ammonia <10(L) 16 - 60 umol/L 03/02/2024 4:21 PM CDT LABORATORY Blood STRUCTURE OF RIGHT UPPER LIMB / Unknown Venipuncture / Unknown 03/02/2024 3:55 PM CDT 03/02/2024 3:57 PM CDT Raúl Bernard MD LAB - BLOOD ORDERABL ES LABORATORY [facility] [address] [facility] Lab (1st floor, no room number) [place] [address], [facility] * Asymptomatic Influenza A/B, RSV, & SARS-CoV2 PCR (COVID-19) Nasopharyngeal (03/02/2024 1:57 PM CDT) Pathologist [facility] Influenza A PCR Negative Negative 03/02/2024 3:05 PM CDT LABORATORY Influenza B PCR Negative Negative 03/02/2024 3:05 PM CDT LABORATORY RSV PCR Negative Negative 03/02/2024 3:05 PM CDT LABORATORY SARS CoV2 PCR Negative Negative 03/02/2024 3:05 PM CDT LABORATORY Comment:NEGATIVE: SARS-CoV-2 (COVID-19) RNA not detected, presumed negative. Swab NASOPHARYNGEAL STRUCTURE / Unknown Non-blood Collection / Unknown 03/02/2024 1:57 PM CDT 03/02/2024 2:14 PM CDT Narrative LABORATORY - 03/02/2024 3:05 PM CDT Testing was performed using the Xpert Xpress CoV2/Flu/RSV Assay on the [employer] GeneXpert Instrument. This test should be ordered [...] management. This test was validated by the [facility]. These laboratories are certified under the Clinical Laboratory Improvement Amendments of 1988 (CLIA-88) as qualified to perform high complexity laboratory testing. Raúl Bernard MD LAB - MICRO GENERAL ORDERABLES Performing Organization Address City/[facility]/ZIP Co de Phone Number [facility] [address] Lab (1st floor, no room number) [place] [address] * Extra Heparinized Syringe (03/02/2024 1:56 PM CDT) Hold Specimen [facility] 03/02/2024 3:17 PM CDT RH LABORATORY Blood, venous BLOOD SPECIMEN / Unknown Venipuncture / Unknown 03/02/2024 1:56 PM CDT 03/02/2024 2:14 PM CDT Raúl Bernard MD LAB - BLOOD ORDERABL ES Performing Organization Address [facility]/ZIP Co de Phone Number [facility] [address] Lab (1st floor, no room number) [place] [address], [place] * Extra Blood Bank Purple Top Tube (03/02/2024 1:56 PM CDT) Only the most recent of2 resultswithin the time period is included. Hold Specimen [facility] 03/02/2024 3:17 PM CDT RH LABORATORY Blood BLOOD SPECIMEN / Unknown Venipuncture / Unknown 03/02/2024 1:56 PM CDT 03/02/2024 2:15 PM CDT Raúl Bernard MD LAB - BLOOD ORDERABL ES Performing Organization Address City/[facility]/ZIP Co de Phone Number [facility] [address] Lab (1st floor, no room number) [place] [address], [facility] * Extra Purple Top Tube (03/02/2024 1:56 PM CDT) Only the most recent of2 resultswithin the time period is included. Hold Specimen [facility] 03/02/2024 3:17 PM CDT RH LABORATORY Blood BLOOD SPECIMEN / Unknown Venipuncture / Unknown 03/02/2024 1:56 PM CDT 03/02/2024 2:15 PM CDT Raúl Bernard MD LAB - BLOOD ORDERABL ES [facility] [address] Lab (1st floor, no room number) [address] [place] [address] * Extra Green Top ([place] Heparin) Tube (03/02/2024 1:56 PM CDT) Only the most recent of2 resultswithin the time period is included. Hold Specimen [facility] 03/02/2024 3:17 PM CDT RH LABORATORY Blood BLOOD SPECIMEN / Unknown Venipuncture / Unknown 03/02/2024 1:56 PM CDT 03/02/2024 2:15 PM CDT Raúl Bernard MD LAB - BLOOD ORDERABL ES Performing Organization Address City/[facility]/ZIP Co de Phone Number [facility] [address] Lab (1st floor, no room number) [place] [phone] [place] [address] * Extra Red Top Tube (03/02/2024 1:56 PM CDT) Hold Specimen [facility] 03/02/2024 3:17 PM CDT RH LABORATORY Blood BLOOD SPECIMEN / Unknown Venipuncture / Unknown 03/02/2024 1:56 PM CDT 03/02/2024 2:15 PM CDT Raúl Bernard MD LAB - BLOOD ORDERABL ES [facility] Lab [address] Lab (1st floor, no room number) [place] [phone] * Extra Blue Top Tube (03/02/2024 1:56 PM CDT) Only the most recent of2 resultswithin the time period is included. Hold Specimen [facility] 03/02/2024 3:17 PM CDT LABORATORY Blood BLOOD SPECIMEN / Unknown Venipuncture / Unknown 03/02/2024 1:56 PM CDT 03/02/2024 2:15 PM CDT Raúl Bernard MD LAB - BLOOD ORDERABL ES Performing Organization Address City/[facility]/ZIP Co de Phone Number [facility] [address] Lab (1st floor, no room number) [place] [phone] * Hemoglobin A1c (03/02/2024 1:56 PM CDT) [facility] Hemoglobin A1C 5.5 <5.7 % 03/02/2024 7:31 PM CDT LABORATORY Comment: Normal <5.7% Prediabetes 5.7-6.4% ?? Diabetes 6.5% or higher Note: Adopted from ADA consensus guidelines. Blood BLOOD SPECIMEN / Unknown Venipuncture / Unknown 03/02/2024 1:56 PM CDT 03/02/2024 2:15 PM CDT Ron Tripathi MD LAB - BLOOD ORDERABL ES [facility] Lab [address] Lab (1st floor, no room number) [place] [address] * Hepatitis B Surface Antibody (02/26/2024 11:13 AM CDT) Pathologist [facility] Hepatitis B Surface Antibody Reactive 02/26/2024 4:38 PM CDT U LABORATORY Comment:A reactive result in dicates recovery [...] LAB - BLOOD ORDER NADIA UU LABORATORY [facility] [place] [facility] [address], [address] [place] [address], [facility] * (ABNORMAL) Iron and iron binding capacity [...] MD LAB - BLOOD ORDERABL ES LABORATORY [facility] [address] Lab (1st floor, no room number) [place] [address], [facility] * (ABNORMAL) Ferritin (02/26/2024 6:10 AM CDT) Ferritin 1,463(H) 31 - 409 ng/mL 02/26/2024 12:37 PM CDT UU LABORATORY Blood STRUCTURE OF RIGHT HAND / Unknown Venipuncture / Unknown 02/26/2024 6:10 AM CDT 02/26/2024 6:20 AM CDT Momo Hercules MD LAB - BLOOD ORDERABL ES UU LABORATORY [facility] Lab [address] [facility], [address] [place] [phone] * UPPER GI ENDOSCOPY (02/25/2024 3:01 PM CDT) [facility] Upper GI Endoscopy Patient Name: Herminio Victor ? Procedure Date: [...] ?Olympus Gastroscope, Model # GIF-H190, Censitrac # ?[id number] was introduced through the mouth, and ?advanced [...] Note Initiated On: 02/25/2024 3:01 PM MRN: ?[id number] Procedure Date: ? 02/25/2024 3:01:34 PM Total Procedure Duration: 0 hours 2 minutes 56 seconds Estimated Blood Loss: ? Scope In: 3:19:43 PM Scope Out: 3:22:39 PM RADIOLOGY RESULTS 02/25/2024 3:01 PM CDT Momo Hercules MD PROCEDURES Performing Organization Address [facility] Co de Phone Number RADIOLOGY RESULTS * Hepatitis B surface antigen (02/25/2024 6:45 AM CDT) Hepatitis B Surface Antigen Nonreactive Nonreactive 02/25/2024 10:36 AM CDT U LABORATORY Blood STRUCTURE OF LEFT UPPER LIMB / Unknown Venipuncture / Unknown 02/25/2024 6:45 AM CDT 02/25/2024 6:51 AM CDT Mann Brush DO LAB - BLOOD ORDERABL ES Performing Organization Address [facility] Co de Phone Number U LABORATORY [facility] Core Lab [address], [address] [phone] * (ABNORMAL) Occult blood stool (02/24/2024 11:31 AM CDT) Occult Blood Positive(A ) Negative JOJO 02/24/2024 11:40 AM CDT LABORATORY Stool RECTAL CONTENTS / Unknown Non-blood Collection / Unknown 02/24/2024 11:31 AM CDT 02/24/2024 11:38 AM CDT Jae Noel MD LAB - STOOLS ORDERAB LES Performing Organization Address City/[facility]/ZIP Co de Phone Number LABORATORY [facility] [address] Lab (1st floor, no room number) [place] [address], [facility] * CT Head w/o Contrast (02/24/2024 10:42 AM CDT) Anatomical Region Laterality Modality Head, SUBRAD CT NEURO, SUBRA D CT NEURO, UMP CT NEURO, RAD CT Computed Tomography Impressions 02/24/2024 11:11 AM CDT IMPRESSION: 1. No acute intracranial pathology. 2. Chronic small vessel ischemic disease and generalized cerebral volume loss. FLAKO ZUNIGA MD SYSTEM ID: ??[id number] Narrative 02/24/2024 11:11 AM CDT EXAM: CT HEAD W/O CONTRAST ??02/24/2024 10:42 AM HISTORY: ??Altered mental status, cocnern for ICH, on coumadin ?? COMPARISON: ??No prior similar studies TECHNIQUE: Using multidetector thin collimation helical acquisition technique, axial, coronal and sagittal CT images from the skull base to the vertex were obtained without intravenous contrast. Pbx Supervisor (topogram) image(s) also obtained and reviewed. Dose [...] the vertex were obtained without intravenous contrast. Pbx Supervisor (topogram) image(s) also obtained and reviewed. Dose [...] volume loss. FLAKO ZUNIGA MD SYSTEM ID: [id number] Jae Noel MD IMG CT ORDERABLES * (ABNORMAL) iStat Gases (lactate) venous, POCT (02/24/2024 10:15 AM CDT) Pathologist [facility] Lactic Acid POCT 0.7 <=2.0 mmol/L 02/24/2024 [...] LAB - BEAKER POCT RH LABORATORY POC [facility] [address] [facility] Lab (1st floor, no room number) [place] [address], [facility] * Hepatitis C (HIM External Result) (01/04/2022 12:00 PM CDT) Pathologist [facility] Hep C HIM See Scanned Document EXTERNAL LAB Comment:Nonreactive 01/04/2022 12:0 0 PM CDT Narrative EXTERNAL LAB - 01/04/2022 12:00 PM CDT LAB RESULT [facility] [address] [place] [id number] Provider Outside LAB - HIM EXTERNAL R ESULT EXTERNAL LAB External Lab * (ABNORMAL) Lipid panel (12/07/2017 12:34 PM BODY DESIGN CHECKER) Cholesterol 115 <200 mg/dL 12/07/2017 1:27 PM BODY DESIGN CHECKER [facility] Triglycerides 84 <150 mg/dL 12/07/2017 1:27 PM BODY DESIGN CHECKER [facility] HDL Cholesterol 37(L) >39 mg/dL 8 1:27 PM [facility] LDL Cholesterol Calculated 61 <100 mg/dL 12/07/2017 1:27 PM [facility] Comment:Desirable: <100 mg/d l Non HDL Cholesterol 78 <130 mg/dL 12/07/2017 1:27 PM BODY DESIGN CHECKER [facility] Blood specimen (specimen) 12/07/2017 12:34 PM BODY DESIGN CHECKER 12/07/2017 12:58 PM BODY DESIGN CHECKER Michele Fuentes MD LAB - BLOOD ORD ERABLES [facility] [address] [place] [address], [facility] [phone] from Last 3 Months or Most Recently Relevant to Health Maintenance Advance Directives For more information, please contact: [phone] * Full Code (Latest Code Status on [...] 12:25 PM 01/25/2019 11:45 AM Care Teams Recorder Helper Seismograph Relationship Specialty Start Date End Date Preet Huff PCP - General 06/24/11
--- OUTSIDE RECORDS SUMMARY | 2024-05-24 23:44 | XMS_ITS | Encounter Summary ---
Author Organization [place] Address [facility] [place] [address] Care Team Providers Care Treasury Agent Name Role Phone Preet Huff Primary Care Provider [phone] Reason for Visit * Reason Comments Penis/Scrotum Problem * Auth/Cert Specialty Diagnoses / Procedures Referred By Contac t Referred To Contact EMERGENCY MEDICINE Diagnoses Supratherapeutic INR Mita's gangrene of scrotum (H28) Emergency Dept [address] [place] [address] Referral ID Status Reason Start Date Expiration Date Visits Re quested Visits Authorized [id number] 1 1 Encounter Details Date Type Department Care Team (Late st Contact Info) Description 05/23/2024 6:00 PM CDT - 05/23/2024 7:[address] [facility] PeriOp Services [address] [place] [phone] Lizandro Barron MD [address] [facility] [address] [place] [address] Incision and drainage, debridement of scrotal skin and subcutaneous tissues for necrotizing soft tissue infection of the scrotum Surgery Details Date/Time Status Location OR Service Patient Class Case Cl ass Case Type Trauma Case? 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 Sexual Orientation Not on file documented as of this encounter Last Filed Vital Signs Vital Sign Reading Time Taken Comments Blood Pressure 163/57 05/23/2024 5:29 PM CDT Pulse 61 05/23/2024 5:29 PM CDT Temperature 35.8 ??C (96.5 ??F) 05/23/2024 5:29 PM CD T Respiratory Rate 16 05/23/2024 5:29 PM CDT Oxygen Saturation 93% 05/23/2024 5:29 PM CDT Inhaled Oxygen Concentration - - Weight 83.9 kg (185 lb) 05/23/2024 1:21 PM CDT Height 162.6 cm (5' 4) 05/23/2024 1:21 PM CDT Body Mass Index 31.76 05/23/2024 1:21 PM CDT documented in this encounter Progress Notes * Antonino Cheek MD - 05/24/2024 10:39 AM CDT [facility] Medicine Progress Note - Hospitalist Service Date of Admission: 05/23/2024 Assessment & Plan Herminio Victor is a 59 year old male admitted on 05/23/2024. He presents with scrotal swelling,foul-smelling and radiological findings compatible with Mita's gangrene. 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 Mita's gangrene End-stage renal disease on hemodialysis Jeffrey, Tuesday, Tuesday Diabetes mellitus type 2 Cognitive deficits Anemia History of DVT on chronic anticoagulation in the form of warfarin Hypertension Legally blind Plan -Dialysis diet -Admit to inpatient. -Continues oxymetry -Strict DONI's. -Zosyn/vancomycin/clindamycin IV (pharmacy to dose according to CrCl) -Urology consulted. -Nephrology consulted. -Infectious disease consulted. -INR reversed. Surgery completed 05/23. -OR yst PM: Incision and drainage of scrotal abscess, debridement of scrotal skin and subcutaneous tissues . -Continue to monitor leukocytosis. -WOC RN consulted for cures/dressing management. -Pain with Dilaudid and nausea management per protocol. -PCD's Diet: NPO per Anesthesia Guidelines for Procedure/Surgery Except for: Meds DVT Prophylaxis: Pneumatic Compression Devices Valadez Catheter: Not present Lines: None Cardiac Monitoring: None Code Status: Full Code Clinically Significant Risk Factors Present on Admission # Hypoalbuminemia: Lowest albumin = 3 g/dL at 05/24/2024 6:09 AM, will monitor as appropriate # Drug Induced Coagulation Defect: home medication list includes an anticoagulant medication # Anemia: based on hgb <11 # Obesity: Estimated body mass index is 31.76 kg/m?? as calculated from the following: Height as of this encounter: 1.626 m (5' 4). Weight as of this encounter: 83.9 kg (185 lb). Disposition Plan Medically Ready for Discharge: Anticipated in 5+ Days Antonino Cheek MD Hospitalist Service [facility] Securely message with Emb[employer] (more info) Text page via [employer] Paging/Directory Interval History No bleeding, pain or other complication. He states to be good. Physical Exam Vital Signs: Temp: 98.4 ??F (36.9 ??C) Temp src: Oral BP: 121/47 Pulse: 89 Resp: 16 SpO2: 100 % O2 Device: Nasal cannula Oxygen Delivery: 2 LPM Weight: 185 lbs 0 oz GEN: Alert, oriented x 3, appears comfortable, NAD. HEENT: Normocephalic/atraumatic, no scleral icterus, no nasal discharge, mouth moist. CV: Regular rate and rhythm, YARA II/ murmur LSB. S1 + S2 noted, no S3 or S4. LUNGS: Clear to auscultation bilaterally without rales/rhonchi/wheezing/retractions. Symmetric chest rise on inhalation noted. ABD: Active bowel sounds, soft, non-tender/non-distended. No rebound/guarding/rigidity. EXT: No edema or cyanosis. No joint synovitis noted. SKIN: Dry to touch, no exanthems noted in the visualized areas. Medical Decision Making 40 MINUTES SPENT BY ME on the date of service doing chart review, history, exam, documentation & further activities per the note. Data I have personally reviewed the following data over the past 24 hrs: 8.2 \ 9.1 (L) / 171 131 (L) 94 (L) 28.9 (H) / 86 4.3 24 5.89 (H) \ ALT: 19 AST: 13 AP: 62 TBILI: 0.5 ALB: 3.0 (L) TOT PROTEIN: 6.7 LIPASE: N/A Procal: N/A CRP: N/A Lactic Acid: 0.9 INR: 1.14 PTT: N/A D-dimer: N/A Fibrinogen: N/A Imaging results reviewed over the past 24 hrs: Recent Results (from the past 24 hour(s)) CT Abdomen Pelvis w Contrast Narrative CT ABDOMEN PELVIS W CONTRAST 05/23/2024 2:19 [...] veins which are not included in the [id number]. 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 No destructive lesions in the bones. Impression IMPRESSION: 1. 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 2. Other chronic findings as discussed above. Findings were discussed with Dr. Kenna Coe at 2:35 PM. MIKE SANTANA MD SYSTEM ID: [id number] * Poppy Bernardo PA-C - 05/24/2024 9:45 AM CDT [facility] Urology Progress Note Assessment and Plan: Assessment: POD 1 debridement of scrotal skin and subcutaneous tissues for necrotizing soft tissue infection, Mita's gangrene Supratherapeutic INR Mita's gangrene of scrotum (H28) End-stage renal disease on hemodialysis Tuesday, Tuesday, Tuesday Diabetes mellitus type 2 Cognitive deficits Anemia History of DVT on chronic anticoagulation in the form of warfarin Hypertension Legally blind Plan: -Would recommend patient remain n.p.o. until Dr. Jimenez is able to reassess, but do not anticipate taking patient back to the OR today for repeat debridement. There is an area on the left side of the wound that we will need to monitor closely. -Continue with broad-spectrum IV antibiotics. Appears consult in place for ID. Appreciate their recommendations. Cultures are still pending. Follow cultures. -Continue to monitor for leukocytosis. -Will continue with serial scrotal examinations. -Appreciate [facility] recommendations for wound dressing. -Nephrology consult given patient's end-stage renal disease on hemodialysis. -Would like to hold anticoagulation for at least the few days, so until we can make sure that he does not need to return to the OR for repeat debridement. -Will continue to follow along. ADDENDUM NPO at midnight to reassess. Okay for renal diet now and will reassess in the am. Poppy Bernardo PA-C [facility] Urology [phone] Interval History: Doing okay. Pain has been controlled overnight. Does not make urine. Denies nausea and vomiting. Hemoglobin 9.1. WBC 8.2 (7.8). INR 1.14. Afebrile without tachycardia. Continues on IV vancomycin, IV Zosyn, and IV clindamycin. Circumcised phallus. Still remnant foul smell noted, but dramatically improved from yesterday. Wound shows healthy bleeding. Some slough remains on the left side of the scrotal wound. No crepitus or eschar noted. Tender with palpation. EXE: Left thigh fistula with palpable thrill. Review of Systems: The 5 point Review of Systems is negative other than noted in the HPI Medications: Current Facility-Administered Medications Medication Dose Route Frequency Provider Last Rate Last Admin - MEDICATION INSTRUCTIONS for Dialysis Patients - Does not apply See Admin Instructions Antonino Cheek MD calcium acetate (PHOSLO) capsule 667 mg 667 mg Oral TID w/meals Antonino Cheek MD 667 mg at 05/24/24 0902 calcium carbonate (TUMS) chewable tablet 1,000 mg 1,000 mg Oral 4x Daily PRN Antonino Cheek MD clindamycin (CLEOCIN) 900 mg in 50 mL D5W intermittent infusion 900 mg Intravenous Q8H Antonino Cheek MD 100 mL/hr at 05/24/24 0549 900 mg at 05/24/24 0549 glucose gel 15-30 g 15-30 g Oral Q15 Min PRN Antonino Cheek MD Or dextrose 50 % injection 25-50 mL 25-50 mL Intravenous Q15 Min PRN Antonino Cheek MD Or glucagon injection 1 mg 1 mg Subcutaneous Q15 Min PRN Antonino Cheek MD HOLD: warfarin (COUMADIN) therapy Does not apply HOLD Lizandro Barron MD HYDROmorphone (DILAUDID) injection 0.2-0.4 mg 0.2-0.4 mg Intravenous Q2H PRN Antonino Cheek MD 0.2 mg at 05/24/24 0922 insulin aspart (NovoLOG) injection (RAPID ACTING) 1-7 Units Subcutaneous Q4H Antonino Cheek MD lidocaine (LMX4) cream Topical Q1H PRN Antonino Cheek MD lidocaine 1 % 0.1-1 mL 0.1-1 mL Other Q1H PRN Antonino Cheek MD metoprolol tartrate (LOPRESSOR) tablet 100 mg 100 mg Oral QAM Antonino Cheek MD 100 mg at 05/24/24 0902 naloxone (NARCAN) injection 0.2 mg 0.2 mg Intravenous Q2 Min PRN Antonino Cheek MD Or naloxone (NARCAN) injection 0.4 mg 0.4 mg Intravenous Q2 Min PRN Antonino Cheek MD Or naloxone (NARCAN) injection 0.2 mg 0.2 mg Intramuscular Q2 Min PRN Antonino Cheek MD Or naloxone (NARCAN) injection 0.4 mg 0.4 mg Intramuscular Q2 Min PRN Antonino Cheek MD pantoprazole (PROTONIX) EC tablet 40 mg 40 mg Oral QAM AC Antonino Cheek MD 40 mg at 05/24/24 0902 piperacillin-tazobactam (ZOSYN) 2.25 g vial to attach to NS 100 ml bag 2.25 g Intravenous Q8H Antonino Cheek MD 2.25 g at 05/24/24 0552 senna-docusate (SENOKOT-S/PERICOLACE) 8.6-50 MG per tablet 1 tablet 1 tablet Oral BID PRN Antonino Cheek MD Or senna-docusate (SENOKOT-S/PERICOLACE) 8.6-50 MG per tablet 2 tablet 2 tablet Oral BID PRN Antonino Cheek MD sennosides (SENOKOT) tablet 2 tablet 2 tablet Oral Every Other Day Antonino Cheek MD 2 tablet at05/24/24 0902 sodium chloride (PF) 0.9% PF flush 3 mL 3 mL Intracatheter Q8H Antonino Cheek MD 3 mL at 05/24/24 0551 sodium chloride (PF) 0.9% PF flush 3 mL 3 mL Intracatheter q1 min prn Antonino Cheek MD vancomycin place watson - receiving intermittent dosing 1 each Intravenous See Admin Instructions Antonino Cheek MD [START ON 05/25/2024] vitamin B complex with vitamin C (STRESS TAB) tablet 1 tablet 1 tablet Oral QPM Antonino Cheek MD Facility-Administered Medications Ordered in Other Encounters Medication Dose Route Frequency Provider Last Rate Last Admin heparin 100 UNIT/ML Lock Flush SOLN Physical Exam: Vitals were reviewed Patient Vitals for the past 8 hrs: BP Temp Temp src Pulse Resp SpO2 05/24/24 0724 121/47 98.4 ??F (36.9 ??C) Oral 89 16 100 % GEN: NAD, lying in bed EYES: EOMI MOUTH: MMM NECK: Supple RESP: Unlabored breathing CARDIAC: No LE edema SKIN: Warm ABD: soft NEURO: AAO URO: Circumcised phallus. Still remnant foul smell noted, but dramatically improved from yesterday.Wound shows healthy bleeding. Some slough remains on the left side of the scrotal wound. No crepitus or eschar noted. Tender with palpation. EXE: Left thigh fistula with palpable thrill. Data: No results found for: NTBNPI, NTBNP Lab Results Component Value Date WBC 8.2 05/24/2024 WBC 7.8 05/23/2024 WBC 9.9 03/11/2024 HGB 9.1 (L) 05/24/2024 HGB 9.7 (L) 05/23/2024 HGB 8.1 (L) 03/12/2024 HCT 30.9 (L) 05/24/2024 HCT 32.9 (L) 05/23/2024 HCT 23.8 (L) 03/11/2024 MCV 94 05/24/2024 MCV 93 05/23/2024 MCV 89 03/11/2024 PLT 171 05/24/2024 PLT 162 05/23/2024 PLT 154 03/11/2024 Lab Results Component Value Date INR 1.14 05/24/2024 INR 1.04 05/23/2024 INR 1.29 (H) 05/23/2024 All cultures: Recent Labs Lab 05/23/24 1842 05/23/24 1350 CULTURE See corresponding culture for results No growth after 12 hours Aerobic and anaerobic wound cultures are in process. Associated attestation - Bk Jimenez MD - 05/24/2024 5:08 PM CDT Physician Attestation I saw and evaluated Herminio Victor as part of a shared TALENT ACQUISITION SPECIALIST/PA visit. I personally reviewed the vital signs, medications, labs, and imaging. I personally provided a substantive portion of care for this patient and I approve the care plan aswritten by the DIA. I was involved with Medical Decision Making including: MANAGEMENT DISCUSSED with the following over the past 24 hours: I examined and evaluated his wound which looks to be granulating there is some mild debris present but no evidence of worsening infection or t tissue loss. It would be reasonable to keep him n.p.o. tonight and reassess in the morning after which we will have afair idea about whether this needs more debridement or not. I was curb sided by the hospitalist team about optimal time to start his anticoagulation. I think it would be reasonable to consider that af ter tomorrow's exam and if the exam looks stable and no further debridement is contemplated he should be okay to start on anticoagulation at that time. Bk Jimenez MD Date of Service (when I saw the patient): 05/24/24 * Douglas Zarate RT - 05/23/2024 11:28 PM CDT Pt refused CPAP. Will follow as needed. RT Mariluz on 05/23/2024 at 11:28 PM documented in this encounter H&P Notes * Antonino Cheek MD - 05/23/2024 4:34 PM CDT `[facility] History and Physical - Hospitalist Service Date of Admission: 05/23/2024 Assessment & Plan Herminio Victor is a 59 year old male admitted on 05/23/2024. He presents with scrotal swelling,foul-smelling and radiological findings compatible with Mita's gangrene. 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 Mita's gangrene End-stage renal disease on hemodialysis Tuesday, Tuesday, Tuesday Diabetes mellitus type 2 Cognitive deficits Anemia History of DVT on chronic anticoagulation in the form of warfarin Hypertension Legally blind Plan -NPO. -Admit to inpatient. -Continues oxymetry -Strict DONI's. -Zosyn/vancomycin/clindamycin IV (pharmacy to dose according to CrCl) -Urology consultation. -Nephrology consultation. -Infectious disease. -Reversal of INR for planned surgery. ED coordinating with multiple agents. -OR later today for Incision and drainage of scrotal abscess, debridement of scrotal skin and subcutaneous tissues for necrotizing soft tissue infection of the scrotum. -Continue to monitor leukocytosis. -WOC consult after surgery for dressing management. -Pain with Dilaudid and nausea management per protocol. -PCD's Diet: NPO per Anesthesia Guidelines for Procedure/Surgery Except for: Meds DVT Prophylaxis: Pneumatic Compression Devices Valadez Catheter: Not present Lines: None Cardiac Monitoring: None Code Status: Full Code Clinically Significant Risk Factors Present on Admission # Hypoalbuminemia: Lowest albumin = 3.2 g/dL at 05/23/2024 1:50 PM, will monitor as appropriate # Drug Induced Coagulation Defect: home medication list includes an anticoagulant medication # Anemia: based on hgb <11 # Obesity: Estimated body mass index is 31.76 kg/m?? as calculated from the following: Height as of this encounter: 1.626 m (5' 4). Weight as of this encounter: 83.9 kg (185 lb). Disposition Plan Medically Ready for Discharge: Anticipated in 5+ Days Antonino Cheek MD Hospitalist Service [facility] Securely message with [employer] (more info) Text page via [facility] Paging/Directory Chief Complaint Scrotal pain History is obtained from the patient who is not reliable. electronic health record, and emergency department physician History of Present Illness Herminio Victor is a 59 year old male with end-stage renal disease on hemodialysis, history of DVT, diabetes mellitus, cognitive impairment and retinopathy who was sent to the emergency department for assessment. During the routine dialysis visit his clinic, he was found with foul-smelling and necrotic aspect of the scrotum. Patient is very poor historian, he reports to me of been having painin the site for at least 2 weeks. In the emergency department he has been afebrile, normal heart rate, respiratory rate, blood pressure and oxygen saturation. CT of the abdomen reported findings compatible with Mita's gangrene and presence of gas in the subcutaneous tissues of the scrotum. In the emergency department the patient has been treated with Zosyn, vancomycin and clindamycin. Consulthas been obtained with urology. He will be taken to the operating room emergently however he arrived with with supratherapeutic INR. Kcentra has been delivered per protocol. He will be taken to the OR once INR permits. Past Medical History Past Medical History: Diagnosis Date A-V fistula (H24) left forearm Anemia Anemia Blind Chronic in-center hemodialysis status (H24) Cognitive deficits Diabetes mellitus (H) DVT (deep venous thrombosis) (H) ESRD (end stage renal disease) (H) dialysis T--[facility] History of staph septicemia 12/20/2015 Hyperkalemia Hyperlipemia [...] biopsy forceps; Surgeon: Steven Savage MD; Location: [facility] GI CREATE FISTULA ARTERIOVENOUS LOWER EXTREMITY 06/20/2013 Procedure: CREATE FISTULA ARTERIOVENOUS LOWER EXTREMITY; LEFT GROIN PTFE DIALYSIS ACCESS; Surgeon: Rober Saravia MD; Location: OR CREATE FISTULA ARTERIOVENOUS LOWER EXTREMITY Left 07/02/2015 Procedure: CREATE FISTULA ARTERIOVENOUS LOWER EXTREMITY; Surgeon: Rober Saravia MD; Location: [facility] OR CREATE FISTULA ARTERIOVENOUS LOWER EXTREMITY Left [...] EXTREMITY; Surgeon: Rober Saravia MD; Location: OR ESOPHAGOSCOPY, GASTROSCOPY, DUODENOSCOPY (EGD), COMBINED N/A 02/25/2024 Procedure: Esophagoscopy, gastroscopy, duodenoscopy (EGD), combined; Surgeon: Benjie Flores MD; Location: GI ESOPHAGOSCOPY, GASTROSCOPY, DUODENOSCOPY (EGD), COMBINED N/A 03/06/2024 Procedure: ESOPHAGOGASTRODUODENOSCOPY; Surgeon: Steven Savage MD; Location: OR GENITOURINARY SURGERY TURP,CIRCUMCISION INSERT CATHETER VENOUS TRANSLUMBAR 08/08/2012 Procedure: INSERT CATHETER VENOUS TRANSLUMBAR; LUMBAR TUNNEL CATH PLACEMENT.; Surgeon: Michele Fuentes MD; Location: [facility] OR IR DIALYSIS FISTULOGRAM LEFT 01/25/2019 IR DIALYSIS FISTULOGRAM LEFT 10/02/2019 IR DIALYSIS FISTULOGRAM LEFT 03/18/2020 IR DIALYSIS FISTULOGRAM LEFT 02/11/2022 IRRIGATION AND DEBRIDEMENT FOOT, COMBINED Left 12/16/2017 Procedure: COMBINED IRRIGATION AND DEBRIDEMENT FOOT;; Surgeon: Rober Saravia MD; Location: [facility] OR IRRIGATION AND DEBRIDEMENT LOWER EXTREMITY, COMBINED Left 06/04/2014 Procedure: COMBINED IRRIGATION AND DEBRIDEMENT LOWER EXTREMITY; Surgeon: Roebr Saravia MD; Location: [facility] SD IRRIGATION AND DEBRIDEMENT LOWER EXTREMITY, COMBINED [...] Prescriptions Last Dose Informant Patient Reported? Taking? B Cuphklm-R-Rpyuo Acid (WESCAPS PO) Yes No Sig: Take 1 capsule by mouth every evening amLODIPine (NORVASC) 5 MG tablet Yes No Sig: Take 5 mg by mouth daily atorvastatin (LIPITOR) 20 MG tablet No No Sig: Take 1 tablet (20 mg) by mouth every evening blood glucose (NO BRAND SPECIFIED) test strip No No Sig: Use to test blood sugar 4 times daily or as directed. blood glucose monitoring (NO BRAND SPECIFIED) meter device kit No No Sig: Use to test blood sugar 4 times daily or as directed. calcium acetate (PHOSLO) 667 MG CAPS capsule Yes No Sig: Take 1 capsule (667 mg)by mouth 3 times daily with meals calcium acetate (PHOSLO) 667 MG CAPS capsule Yes No Sig: Take 1 capsule (667 mg) once daily with a snack metoprolol tartrate (LOPRESSOR) 100 MG tablet Yes No Sig: Take 100 mg by mouth every morning pantoprazole (PROTONIX) 40 MG EC tablet No No Sig: Take 1 tablet (40 mg) by mouth 2 times daily (before meals) sennosides (SENOKOT) 8.6 MG tablet Yes No Sig: Take 2 tablets by mouth every other day thin (NO BRAND SPECIFIED) lancets No No Sig: Use with lanceting device. warfarin ANTICOAGULANT (COUMADIN) 5 MG tablet Yes No Sig: Take 1 tablet (5 mg) by mouth Tuesday through Tuesday Facility-Administered Medications: None Review of Systems The 10 point Review of Systems is negative other than noted in the HPI or here. Physical Exam Vital Signs: Temp: 98 ??F (36.7 ??C) Temp src: Oral BP: 135/56 Pulse: 63 Resp: 18 SpO2: 100 % O2 Device: None (Room air) Weight: 185 lbs 0 oz GEN: Alert, very poor historian, appears comfortable, NAD. HEENT: Normocephalic/atraumatic, no scleral icterus, no nasal discharge, mouth moist. CV: Regular rate and rhythm, no murmur or JVD. S1 + S2 noted, no S3 or S4. LUNGS: Clear to auscultation bilaterally without rales/rhonchi/wheezing/retractions. Symmetric chest rise on inhalation noted. ABD: Active bowel sounds, soft, non-tender/non-distended. No rebound/guarding/rigidity. EXT: No edema or cyanosis. No joint synovitis noted. SKIN: Dry to touch, no exanthems noted in the visualized areas. GENITAL: Scrotal swelling, local bleeding, foul-smelling. Skin is from the subcutaneous tissue. Local right crepitus is palpable. No Medical Decision Making 75 MINUTES SPENT BY ME on the date of service doing chart review, history, exam, documentation & further activities per the note. Data I have personally reviewed the following data over the past 24 hrs: 7.8 \ 9.7 (L) / 162 134 (L) 95 (L) 19.9 / 175 (H) 3.6 29 4.52 (H) \ ALT: 26 AST: 21 AP: 72 TBILI: 0.3 ALB: 3.2 (L) TOT PROTEIN: 7.1 LIPASE: N/A Procal: N/A CRP: N/A Lactic Acid: 0.9 INR: 1.29 (H) PTT: N/A D-dimer: N/A Fibrinogen: N/A Imaging results reviewed over the past 24 hrs: Recent Results (from the past 24 hour(s)) CT Abdomen Pelvis w Contrast Narrative CT ABDOMEN PELVIS W CONTRAST 05/23/2024 2:19 [...] veins which are not included in the [id number]. 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 No destructive lesions in the bones. Impression IMPRESSION: 1. 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 2. Other chronic findings as discussed above. Findings were discussed with Dr. Kenna Coe at 2:35 PM. MIKE SANTANA MD SYSTEM ID: [id number] documented in this encounter Consult Notes * Tyrel Haro MD - 05/24/2024 1:29 PM CDTAssociated Order(s): INFECTIOUS DISEASES IP CONSULT [facility] Infectious Disease Consultation Date of Admission: 05/23/2024 Date of Consult (When I saw the patient): 05/24/24 Assessment & Plan Herminio Victor is a 59 year old male who was admitted on 05/23/2024. Impression: 1 59-year-old male acute Mita's gangrene of the scrotum, status post major operative intervention, cultures from surgery are pending 2 significant sepsis, blood cultures so far negative 3 end-stage renal disease on dialysis 4 prior history in 2016 of Staph aureus bacteremia otherwise not that much in the way of major long-term infection issues 5 blindness 6 chronic cognitive dysfunction REC 1 agree with current broad antibiotics, await microbiology and simplify and adjust as able 2 await blood culture make sure not bacteremic which will alter plans potentially 3 follow wound and overall clinical status closely Tyrel Haro MD Reason for Consult Reason for consult: I was asked to evaluate this patient for scrotal infection. Primary Care Physician PREET HUFF Chief Complaint none History is obtained from the patient and medical records History of Present Illness Herminio Victor is a 59 year old male who presents with acute scrotal infection consistent withFournier's gangrene. Patient was underwent surgical intervention with cultures from that pending, Gram stain suggest multi organism infection. Some degree of sepsis at admission with blood cultures so far negative. Patient is multiple chronic medical issues including chronic renal failure on dialysis, some and cognitive dysfunction. From an infection standpoint had a Staph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 Infection prevention Discussed plan of care with: Patient, Nurse, and Physicians Transfer Worker [facility] nurse follow-up plan: 1-2 times a week Notify WOC if wound(s) deteriorate. Nursing to notify the Provider(s) and re-consult the [facility] Nurse if new skin concern. DATA: Current support surface: Standard Standard Isoflex gel Containment of urine/stool: Anuric BMI: Body mass index is 31.76 kg/m??. Active diet order: Orders Placed This Encounter Renal Diet (dialysis) Output: I/O last 3 completed shifts: In: 850 [P.O.:200; I.V.:650] Out: - Labs: Recent Labs Lab 05/24/24 0609 ALBUMIN 3.0* HGB 9.1* INR 1.14 WBC 8.2 Pressure injury risk assessment: Sensory Perception: 4-->no impairment Moisture: 3-->occasionally moist Activity: 3-->walks occasionally Mobility: 3-->slightly limited Nutrition: 3-->adequate Friction and Shear: 3-->no apparent problem Jay Score: 19 Herminio Mckinley RN CWOCN Contact Via [facility] Nurse (Sherry) Dept. Office Number: [phone] * Poppy Bernardo PA-C - 05/23/2024 2:19 PM CDT [facility] Consultation by [facility] Urology Herminio Victor Age: [age] year old Date of : 1965 Date of Admission: 05/23/2024 Reason for consult: Scrotal gangrene Requesting PA/MD: Dr. Pierson Level of consult: Consult, follow and place orders Assessment and Plan: Assessment: Mita's gangrene End-stage renal disease on hemodialysis Tuesday, Tuesday, Tuesday Diabetes mellitus type 2 Cognitive deficits Anemia History of DVT on chronic anticoagulation in the form of warfarin Hypertension Legally blind Plan: -NPO. -Reversal of INR for planned surgery. ED coordinating with multiple agents. -Broad spectrum IV antibiotics with clindamycin, Zosyn, and vancomycin. -Plan is likely to go to the OR later today for Incision and drainage of scrotal abscess, debridement of scrotal skin and subcutaneous tissues for necrotizing soft tissue infection of the scrotum. -Continue to monitor leukocytosis. -Will need WOC consult after surgery for dressing management. -Pain and nausea management per primary service. -Will continue to follow along. [facility] [phone] Chief Complaint: Penis/Scrotum problem History is obtained from the patient (limited and poor historian due to developmental delay) and EMR. History of Present Illness: This patient is a 59 year old male who presented to the ER this afternoon with penis and scrotal issue. He was sent there from dialysis by EMS after the nurse there evaluated the scrotum. He had beenhaving scrotal bleeding and was seen at urgent care yesterday and was recommended to be seen in theER, but his family was unable to do get him to the hospital. Medical history is significant for diabetes mellitus type 2, cognitive deficit, DVT on chronic anticoagulation in the form of warfarin, end-stage renal disease on hemodialysis Tuesday, Tuesday, Tuesday, GERD, legally blind, hypertension, and dyslipidemia. Patient notes that he has been having on and off scrotal pain for a while. From notes in his chart,someone called in on behalf of him on 05/21/2024 regarding the scrotal pain. Patient no longer makes urine. He denies fevers or chills. He was started on IV clindamycin. IV Zosyn and vancomycin have both been ordered, but he has not received these yet. WBC 7.8. Hemoglobin 9.7. Blood cultures are currently in process. Hemoglobin A1c in February 2024 was 5.5. INR >10.00. Circumcised phallus. Bloody oozing from scrotum. Fluctuant area on the ventral portion of the scrotum that is dark. Eschar and creSkin near groin appears eroded down about 1 cm. Rotting putrid smell noted as soon as entering room and worsened once genitals examined. He thinks he last ate before dialysis this morning. Past Medical History: Past Medical History: Diagnosis Date A-V fistula (H24) left forearm Anemia Anemia Blind Chronic in-center hemodialysis status (H24) Cognitive deficits Diabetes mellitus (H) DVT (deep venous thrombosis) (H) ESRD (end stage renal disease) (H) dialysis T-TH-Sat History of staph septicemia 12/20/2015 Hyperkalemia Hyperlipemia Hyperlipidaemia Hypertension Hypertension Kidney disease Kidney disease Orthostasis Retinopathy Sleep apnea CPAP Syncope Past Surgical History: Past Surgical History: Procedure Laterality Date ABDOMEN SURGERY AV FISTULA OR GRAFT ARTERIAL BYPASS GRAFT FEMOROPOPLITEAL 08/09/2012 Procedure: BYPASS GRAFT FEMOROPOPLITEAL; REDO RIGHT PROFUNDUS FEMORAL TO COMMON FEMORAL ACCESS GRAFT WITH PTFE (POLY TETRA FLOROETHELINE GRAFT), REMOVAL COMMON FEMORAL VEIN STENT, GRAFT EMBOLECTOMY; Surgeon: Rober Saravia MD; Location: OR PLACE CATH AV DIALYSIS SHUNT left thigh [...] EXTREMITY; Surgeon: Rober Saravia MD; Location: OR ESOPHAGOSCOPY, GASTROSCOPY, DUODENOSCOPY (EGD), COMBINED N/A 02/25/2024 Procedure: Esophagoscopy, gastroscopy, duodenoscopy (EGD), combined; Surgeon: Benjie Flores MD; Location: GI ESOPHAGOSCOPY, GASTROSCOPY, DUODENOSCOPY (EGD), COMBINED N/A [...] EXTREMITY; Surgeon: Rober Saravia MD; Location: OR REVISION FISTULA ARTERIOVENOUS LOWER EXTREMITY Left 12/16/2017 Procedure: REVISION FISTULA ARTERIOVENOUS LOWER EXTREMITY; LEFT THIGH ABF FISTOGRAM, ANGIOPLASTY OFOUTFLOW VENOUS STENOSIS, BANDING LEFT ABF, IRRIGATION AND DEBRIDEMENT LEFT FOOT ULCER (C-ARM); Surgeon: Rober Saravia MD; Location: OR THROMBECTOMY LOWER EXTREMITY 08/09/2012 Procedure: THROMBECTOMY LOWER EXTREMITY;; Surgeon: Rober Saravia MD; Location: OR Social History: Social History Tobacco Use Smoking status: Never Smokeless tobacco: Never Substance Use Topics Alcohol use: No Family History: Family History Family history unknown: Yes Family history reviewed. Allergies: Allergies Allergen Reactions Dihydroxyaluminum Aminoacetate Nausea GI bleeding Aspirin GI Disturbance and Rash PN: LW Reaction: unknown Medications: Current Facility-Administered Medications Medication Dose Route Frequency Provider Last Rate Last Admin HOLD: warfarin (COUMADIN) therapy Does not apply HOLD Vi Hernandez DO phytonadione (AQUAMEPHYTON) 10 MG/ML 10 mg in sodium chloride 0.9 % 50 mL intermittent infusion 10 mg Intravenous Once Vi Hernandez DO piperacillin-tazobactam (ZOSYN) 2.25 g vial to attach to NS 100 ml bag 2.25 g Intravenous Once Vi Hernandez DO 2.25 g at 05/23/24 1433 prothrombin 4 factor complex concentrate (KCENTRA) infusion 4,156 Units 4,156 Units Intravenous Once Vi Hernandez DO sodium chloride 0.9 % bag [address] scan flush use 100 mL As instructed Q1H PRN Vi Hernandez DO 100 mL at 05/23/24 1417 sodium chloride 0.9% BOLUS 1,000 mL 1,000 mL Intravenous Once Vi Hernandez DO 1,000 mL/hrat 05/23/24 1355 1,000 mL at 05/23/24 1355 vancomycin (VANCOCIN) 1,750 mg in 0.9% NaCl 500 mL intermittent infusion 20 mg/kg Intravenous Once Vi Hernandez DO 250 mL/hr at 05/23/24 1434 1,750 mg at 05/23/24 1434 Current Outpatient Medications Medication Sig Dispense Refill amLODIPine (NORVASC) 5 MG tablet Take 5 mg by mouth daily atorvastatin (LIPITOR) 20 MG tablet Take 1 tablet (20 mg) by mouth every evening 30 tablet 3 B Nzzkdfb-P-Zuedc Acid (WESCAPS PO) Take 1 capsule by mouth every evening blood glucose (NO BRAND SPECIFIED) test strip Use to test blood sugar 4 times daily or as directed.100 strip 6 blood glucose monitoring (NO BRAND SPECIFIED) meter device kit Use to test blood sugar 4 times daily or as directed. 1 kit 0 calcium acetate (PHOSLO) 667 MG CAPS capsule Take 1 capsule (667 mg)by mouth 3 times daily with meals calcium acetate (PHOSLO) 667 MG CAPS capsule Take 1 capsule (667 mg) once daily with a snack metoprolol tartrate (LOPRESSOR) 100 MG tablet Take 100 mg by mouth every morning pantoprazole (PROTONIX) 40 MG EC tablet Take 1 tablet (40 mg) by mouth 2 times daily (before meals)60 tablet 0 sennosides (SENOKOT) 8.6 MG tablet Take 2 tablets by mouth every other day thin (NO BRAND SPECIFIED) lancets Use with lanceting device. 200 each 6 warfarin ANTICOAGULANT (COUMADIN) 5 MG tablet Take 1 tablet (5 mg) by mouth Tuesday through Tuesday Facility-Administered Medications Ordered in Other Encounters Medication Dose Route Frequency Provider Last Rate Last Admin heparin 100 UNIT/ML Lock Flush SOLN Review of Systems: A comprehensive 10-point review of systems was performed and found to be negative except as described in the HPI. BP 139/62 Pulse 67 Temp 98 ??F (36.7 ??C) (Oral) Resp 18 Ht 1.626 m (5' 4) Wt 83.9 kg (185 lb) SpO2 100% BMI 31.76 kg/m?? PSYCH: NAD EYES: EOMI MOUTH: MMM NECK: Supple, no notable adenopathy RESP: Unlabored breathing CARDIAC: No LE edema, regular radial pulse SKIN: Warm ABD: soft, Nontender NEURO: AAO x 2 URO: Circumcised phallus. Bloody oozing from scrotum. Fluctuant area on the ventral portion of the scrotum that is dark. Eschar and crepitus noted. Near groin appears eroded down about 1 cm. Rotting putrid smell noted as soon as entering room and worsened once genitals examined. Data: Lab Results Component Value Date WBC 7.8 05/23/2024 HGB 9.7 (L) 05/23/2024 HCT 32.9 (L) 05/23/2024 MCV 93 05/23/2024 PLT 162 05/23/2024 Lab Results Component Value Date CR 4.52 (H) 05/23/2024 CR 7.98 (H) 03/12/2024 Blood culture: in process INR Date Value Ref Range Status 05/23/2024 >10.00 (HH) 0.85 - 1.15 Final 03/18/2020 2.97 (H) 0.86 - 1.[address] Abdomen Pelvis w Contrast Result Date: 05/23/2024 CT ABDOMEN PELVIS W CONTRAST 05/23/2024 [...] liver. Cholelithiasis. PANCREAS: Normal. SPLEEN: Normal. ADRENAL GLANDS:Normal. KIDNEYS/BLADDER: Atrophic kidneys with multiple bilateral renal [...] veins which are not included in the mqweg-fl-cvjf. 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 No destructive lesions in the bones. IMPRESSION: 1. 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 2. Other chronic findings as discussed above. Findings were discussed with Dr. Kenna Coe at 2:35 PM. MIKE SANTANA MD SYSTEM ID: [id number] Associated attestation - Lizandro Barron MD - 05/23/2024 6:06 PM CDT Physician Attestation I saw and evaluated Herminio Victor as part of a shared TALENT ACQUISITION SPECIALIST/PA visit. I personally reviewed the vital signs, medications, labs, and imaging. I personally provided a substantive portion of care for this patient and I approve the care plan aswritten by the DIA. I was involved with Medical Decision Making including: Please see A&P for additional details of medical decision making. Seen and examined in pre-op 59 year old man with complex medical history with ESRD on HD, DM, cognitive deficits, history of DVT on warfarin, HTN who presents with a scortal abscess with possible Mita's gangrene in the setting of supratheraputic INR - INR has been reversed - telephone consent completed with his mother - proceed emergently to the OR Lizandro Barron MD Date of Service (when I saw the patient): 05/23/24 documented in this encounter Nursing Notes * Symone Lugo RN - 05/23/2024 8:43 PM CDTSummary: Blood Sugar Patient's initial blood glucose after surgery is 67. Gave juice and some food, recheck is 78. Ok todischarge to floor per MDA. documented in this encounter ED Notes * Kassidy Morel RN - 05/23/2024 4:59 PM CDT [facility] ED Nurse Handoff Report ED Chief complaint: Penis/Scrotum Problem . 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 Activity Level - Current: assist of 2. Lift room needed: No. Bariatric: No Carbon Paper Coating Supervisor Needed: No Isolation: No. Infection: Not Applicable. Respiratory status: Room air Vital Signs (within 30 minutes): Vitals: 05/23/24 1500 05/23/24 1515 05/23/24 1530 05/23/24 1545 BP: 119/51 126/54 135/56 Pulse: 62 63 65 63 Resp: Temp: TempSrc: SpO2: 100% 100% Weight: Height: Cardiac Rhythm: , Pain level: Patient confused: Yes. Patient Falls Risk: nonskid shoes/slippers when out of bed, arm band in place, and patient and family education. Elimination Status: Has voided Patient Report - Initial Complaint: Pt presents via EMS for evaluation of scrotal bleeding. Per report, pt went to yesterday for scrotal bleeding. Was told to go to hospital, but family unable to get pt to hospital. Pt was at dialysis today, RN looked at scrotum and called EMS. Pt currently denying pain. Hx of cognitive delay. Dialysis on M/W/F, fistula in left tight. Pt did finish dialysis run. Per pt, this is the only site that works. Focused Assessment: See MAR Abnormal Results: Labs Ordered and Resulted from Time of ED Arrival to Time of ED Departure INR - Abnormal Result Value INR >10.00 (*) COMPREHENSIVE METABOLIC PANEL - Abnormal Sodium 134 (*) Potassium 3.6 Carbon Dioxide (CO2) 29 Anion Gap 10 Urea Nitrogen 19.9 Creatinine 4.52 (*) GFR Estimate 14 (*) Calcium 9.1 Chloride 95 (*) Glucose 175 (*) Alkaline Phosphatase 72 AST 21 ALT 26 Protein Total 7.1 Albumin 3.2 (*) Bilirubin Total 0.3 CBC WITH PLATELETS AND DIFFERENTIAL - Abnormal WBC Count 7.8 RBC Count 3.54 (*) Hemoglobin 9.7 (*) Hematocrit 32.9 (*) MCV 93 MCH 27.4 MCHC 29.5 (*) RDW 20.2 (*) Platelet Count 162 % Neutrophils 74 % Lymphocytes 9 % Monocytes 10 % Eosinophils 2 % Basophils 0 % Immature Granulocytes 5 NRBCs per 100 WBC 0 Absolute Neutrophils 5.8 Absolute Lymphocytes 0.7 (*) Absolute Monocytes 0.8 Absolute Eosinophils 0.1 Absolute Basophils 0.0 Absolute Immature Granulocytes 0.4 Absolute NRBCs 0.0 INR - Abnormal INR 1.29 (*) LACTIC ACID WHOLE BLOOD - Normal Lactic Acid 0.9 TYPE AND SCREEN, ADULT ABO/RH(D) O POS Antibody Screen Negative SPECIMEN EXPIRATION DATE [id number] BLOOD CULTURE ABO/RH TYPE AND SCREEN CT Abdomen Pelvis w Contrast Final Result IMPRESSION: 1. 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 2. Other chronic findings as discussed above. Findings were discussed with Dr. Kenna Coe at 2:35 PM. MIKE SANTANA MD SYSTEM ID: [id number] Treatments provided: See MAR Family Comments: family updated by OBS brochure/video discussed/provided to patient: Yes ED Medications: Medications sodium chloride 0.9 % bag [address] scan flush use (100 mLs As instructed $Given 05/23/24 141) HOLD: warfarin (COUMADIN) therapy (has no administration in time range) sodium chloride 0.9% BOLUS 1,000 mL (0 mLs Intravenous Stopped 05/23/24 1518) clindamycin (CLEOCIN) 900 mg in 50 mL D5W intermittent infusion (0 mg Intravenous Stopped 05/23/24 1432) vancomycin (VANCOCIN) 1,750 mg in 0.9% NaCl 500 mL intermittent infusion (1,750 mg Intravenous $NewBag 05/23/24 1434) piperacillin-tazobactam (ZOSYN) 2.25 g vial to attach to NS 100 ml bag (0 g Intravenous Stopped 05/23/24 1518) iopamidol (ISOVUE-370) solution 500 mL (93 mLs Intravenous $Given 05/23/24 1417) phytonadione (AQUAMEPHYTON) 10 MG/ML 10 mg in sodium chloride 0.9 % 50 mL intermittent infusion (10mg Intravenous $New Bag 05/23/24 1519) prothrombin 4 factor complex concentrate (KCENTRA) infusion 4,156 Units (4,156 Units Intravenous $Given 05/23/24 1455) Drips infusing: No For the majority of the shift this patient was Green. Interventions performed were N/A. Sepsis treatment initiated: No Cares/treatment/interventions/medications to be completed following ED care: N/A ED Nurse Name: Kassidy Morel RN 4:59 PM * Lilibeth Pena RN - 05/23/2024 1:29 PM CDT Pt presents via EMS for evaluation of scrotal bleeding. Per report, pt went to yesterday for scrotal bleeding. Was told to go to hospital, but family unable to get pt to hospital. Pt was at dialysis today, RN looked at scrotum and called EMS. Pt currently denying pain. Hx of cognitive delay. Dialysis on M/W/, fistula in left tight. Pt did finish dialysis run. Per pt, this is the only site that works. * Vi Hernandez, - 05/23/2024 1:22 PM CDT Emergency Department Note History of Present Illness Chief Complaint Penis/Scrotum Problem HPI Herminio Victor is a 59 year old male on Warfarin with a history of type 2 diabetes mellitus, cognitive deficits, hyperthyroidism, DVT, ESRD, kidney disease, GERD, hyperlipidemia, and hypertension, who presents to the ED for a penis/scrotum problem. The patient was at yesterday for scrotal bleeding and was referred to the ED, but the patient's family was unable to get him to the hospital. When the patient was at dialysis today, the RN looked at the scrotum and called EMS. He has a fistula on his left upper thigh, and receives dialysis Mondays, Wednesdays, and Fridays. There is blood through his brief, but he denies any pain. History is limited due to patient's condition. Independent Historian None Review of External Notes I reviewed the Family Medicine note from 05/21/24, where someone called on his behalf for sharp scrotal pain and was referred to the ED. Past Medical History Medical History and Problem List A-V fistula Anemia Anemia Blind Chronic in-center hemodialysis status Cognitive deficits Diabetes mellitus, type 2 DVT ESRD History of staph septicemia Hyperkalemia Hyperlipidemia Hypertension Kidney disease Kidney disease Orthostasis Retinopathy Sleep apnea Syncope Hyperthyroidism GERD Aortic stenosis Medications Atorvastatin Pantoprazole Amlodipine Metoprolol tartrate Sennosides Warfarin Surgical History AV fistula creation Femoropopliteal bypass graft Colonoscopy with polypectomy EGD Translumbar venous catheter insertion IR dialysis fistulogram Irrigation and debridgement AV fistula revision Thrombectomy Physical Exam Patient Vitals for the past 24 hrs: BP Temp Temp src Pulse Resp SpO2 Height Weight 05/23/24 1914 (!) 157/62 (!) 96.5 ??F (35.8 ??C) Temporal 67 (!) 7 100 % -- -- 05/23/24 1729 (!) 163/57 (!) 96.5 ??F (35.8 ??C) Temporal 61 16 93 % -- -- 05/23/24 1700 (!) 148/56 -- -- 63 -- 98 % -- -- 05/23/24 1645 (!) 148/59 -- -- 62 -- 100 % -- -- 05/23/24 1630 (!) 143/55 -- -- 63 -- 100 % -- -- 05/23/24 1615 (!) 141/53 -- -- 63 -- 100 % -- -- 05/23/24 1600 (!) 144/55 -- -- 64 -- 100 % -- -- 05/23/24 1545 (!) 141/54 -- -- 63 -- 100 % -- -- 05/23/24 1530 135/56 -- -- 65 -- -- -- -- 05/23/24 1515 126/54 -- -- 63 -- 100 % -- -- 05/23/24 1500 119/51 -- -- 62 -- -- -- -- 05/23/24 1445 121/57 -- -- 67 -- 98 % -- -- 05/23/24 1430 117/87 -- -- -- -- -- -- -- 05/23/24 1400 -- -- -- -- -- 99 % -- -- 05/23/24 1345 -- -- -- -- -- 100 % -- -- 05/23/24 1330 135/49 -- -- 65 -- 100 % -- -- 05/23/24 1321 139/62 98 ??F (36.7 ??C) Oral 67 18 100 % 1.626 m (5' 4) 83.9 kg (185 lb) Physical Exam General: Awake, alert, in no acute distress HEENT: Atraumatic EOM normal External ears normal Trachea midline Neck: Supple, normal ROM CV: Regular rate, regular rhythm No lower extremity edema 2+ radial and DP pulses PULM: Breath sounds normal bilaterally No wheezes or rales ABD: Soft, non-tender, non-distended Normal bowel sounds No rebound or guarding MSK: No gross deformities. Left thigh dialysis fistula. NEURO: Alert, no focal deficits Skin: Warm, dry and intact : Scrotal skin macerated and sloughing. Subcutaneous crepitus. Dried blood around right testicle. Testicular tenderness bilaterally. Diagnostics Lab Results Labs Ordered and Resulted from Time of ED Arrival to Time of ED Departure INR - Abnormal Result Value INR >10.00 (*) COMPREHENSIVE METABOLIC PANEL - Abnormal Sodium 134 (*) Potassium 3.6 Carbon Dioxide (CO2) 29 Anion Gap 10 Urea Nitrogen 19.9 Creatinine 4.52 (*) GFR Estimate 14 (*) Calcium 9.1 Chloride 95 (*) Glucose 175 (*) Alkaline Phosphatase 72 AST 21 ALT 26 Protein Total 7.1 Albumin 3.2 (*) Bilirubin Total 0.3 CBC WITH PLATELETS AND DIFFERENTIAL - Abnormal WBC Count 7.8 RBC Count 3.54 (*) Hemoglobin 9.7 (*) Hematocrit 32.9 (*) MCV 93 MCH 27.4 MCHC 29.5 (*) RDW 20.2 (*) Platelet Count 162 % Neutrophils 74 % Lymphocytes 9 % Monocytes 10 % Eosinophils 2 % Basophils 0 % Immature Granulocytes 5 NRBCs per 100 WBC 0 Absolute Neutrophils 5.8 Absolute Lymphocytes 0.7 (*) Absolute Monocytes 0.8 Absolute Eosinophils 0.1 Absolute Basophils 0.0 Absolute Immature Granulocytes 0.4 Absolute NRBCs 0.0 INR - Abnormal INR 1.29 (*) LACTIC ACID WHOLE BLOOD - Normal Lactic Acid 0.9 TYPE AND SCREEN, ADULT ABO/RH(D) O POS Antibody Screen Negative SPECIMEN EXPIRATION DATE [id number] BLOOD CULTURE ABO/RH TYPE AND SCREEN Imaging CT Abdomen Pelvis w Contrast Final Result IMPRESSION: 1. 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 2. Other chronic findings as discussed above. Findings were discussed with Dr. Kenna Coe at 2:35 PM. MIKE SANTANA MD SYSTEM ID: [id number] Independent Interpretation None ED Course Medications Administered Medications sodium chloride 0.9 % bag [address] scan flush use ( As instructed Auto Hold 05/23/24 1714) HOLD: warfarin (COUMADIN) therapy (has no administration in time range) sodium chloride 0.9% BOLUS 1,000 mL (0 mLs Intravenous Stopped 05/23/24 1518) clindamycin (CLEOCIN) 900 mg in 50 mL D5W intermittent infusion (0 mg Intravenous Stopped 05/23/24 1432) vancomycin (VANCOCIN) 1,750 mg in 0.9% NaCl 500 mL intermittent infusion (1,750 mg Intravenous $NewBag 05/23/24 1434) piperacillin-tazobactam (ZOSYN) 2.25 g vial to attach to NS 100 ml bag (0 g Intravenous Stopped 05/23/24 1518) iopamidol (ISOVUE-370) solution 500 mL (93 mLs Intravenous $Given 05/23/24 1417) phytonadione (AQUAMEPHYTON) 10 MG/ML 10 mg in sodium chloride 0.9 % 50 mL intermittent infusion (10mg Intravenous $New Bag 05/23/24 1519) prothrombin 4 factor complex concentrate (KCENTRA) infusion 4,156 Units (4,156 Units Intravenous $Given 05/23/24 1455) Procedures Procedures Discussion of Management Urology, Poppy Greenwood and Dr. Cruz Admitting hospitalist, Dr. Cheek ED Course ED Course as of 05/23/241926May 23, 2024 1330 I obtained the history and examined the patient as above. 1342 I spoke with Poppy Greenwood from Urology regarding the patient's presentation and plan of care. 1432 I spoke with Poppy Greenwood from Urology regarding the patient's presentation and plan of care. 1433 I spoke with Radiology regarding the patient's presentation and plan of care. 1433 I spoke with Pharmacy regarding the patient's presentation and plan of care. [address] Cruz from Urology regarding the patient's presentation and plan of care. [address] Cheek [facility] medicine who accepts [address] Ari[address] Goodman (Mother) [phone] (Home Phone) Updated mom Additional Documentation None Medical Decision Making / Diagnosis [facility] Diagnoses: None MIPS None MDM Herminio Victor is a 59 year old male who presents from dialysis due to concern for bleeding under his adult briefs. Reportedly has had a few days of testicular pain though very poor historian due to developmental delays. Mother essentially confirms much of the same and was told he had bleedingat dialysis and was sent to the ED. His initial exam is extremely concerning for Mita's gangrene with subcutaneous crepitus, sloughing necrotic skin of the scrotum. Clinically he is well-appearing despite concern for necrotizing skin infection. Will cover broadly with vancomycin, Zosyn, clindamycin for toxin production. His INR is supratherapeutic at undetectably high. Given need for emergent surgery despite bleeding being minimal at this time, will order reversal with vitamin K and Kcentra. Repeat INR 1.29. Spoke with urologist on-call who will plan to take urgently. Admitted to hospital medicine. Mother updated on plan ofcare. Disposition The patient was admitted to the hospital. Diagnosis ICD-10-CM 1. Supratherapeutic INR R79.1 Case Request: INCISION AND DRAINAGE, debridement of scrotal skin and subcutaneous tissues for necrotizing soft tissue infection of the scrotum, SCROTUM Case Request: INCISION AND DRAINAGE, debridement of scrotal skin and subcutaneous tissues for necrotizing soft tissue infection of the scrotum, SCROTUM 2. Mita's gangrene of scrotum (H28) N49.3 Case Request: INCISION AND DRAINAGE, debridement of scrotal skin and subcutaneous tissues for necrotizing soft tissue infection of the scrotum, SCROTUM Case Request: INCISION AND DRAINAGE, debridement of scrotal skin and subcutaneous tissues for necrotizing soft tissue infection of the scrotum, SCROTUM Scribe Disclosure: I, Beba Strickland, am serving as a scribe at 1:28 PM on 05/23/2024 to document services personally performed by Vi Hernandez DO based on my observations and the provider's statements to me. Vi Hernandez DO 05/23/241926 * Lesley Avalos RN - 05/23/2024 1:14 PM CDT Bed: ED27 Expected date: 05/23/24 Expected time: Means of arrival: Ambulance Comments: Philippe Finley documented in this encounter Miscellaneous Notes * Plan of Care - Jessica Paz RN - 05/24/2024 6:07 PM CDT Goal Outcome Evaluation: End of Shift Summary For vital signs and complete assessments, please see documentation flowsheets. Pertinent assessments: Pt alert to self. Vss and on 2L NC. LS dim and no sob noted. Had some pain prior to dressing change and IV dilaudid given. Had some emesis during the shift and zofran given x1 with some relief. Bed bath done. BG 86,75,84. MD put Pt on a diet and Urology plans to have Pt NPO @[place]. Wound changed with moderate serous sanguinous drainage. Did not have much of an appetite and hadsome nausea with small emesis and zofran given with some relief. Major Shift Events : None. Treatment Plan: IV cleocin, IV zosyn,ID,WOC,Urology,neph and CC following. Bedside Nurse: Jessica Paz RN Plan of Care Reviewed With: patient Overall Patient Progress: improvingOverall Patient Progress: improving Outcome Evaluation: Scrotal dressing changed twice. Did not have nuc of an appetite. Zofran given for nausea andemesis x1. Problem: Adult Inpatient Plan of Care Goal: Plan of Care Review Description: The Plan of Care Review/Shift note should be completed every shift. The Outcome Evaluation is a brief statement about your assessment that the patient is improving, declining, or no change. This information will be displayed automatically on your shift note. Outcome: Progressing Flowsheets (Taken 05/24/2024 9765) Outcome Evaluation: Scrotal dressing changed twice. Did not have nuc of an appetite. Zofran given for nausea andemesis x1. Plan of Care Reviewed With: patient Overall [...] Manage Fall Risk Recent Flowsheet Documentation Taken 05/24/2024 09 by Jessica Paz RN Safety Promotion/Fall Prevention: activity supervised clutter free environment maintained increase visualization of patient room near nurse's station safety round/check completed Intervention: Prevent and Manage VTE (Venous Thromboembolism) Risk Recent Flowsheet Documentation Taken 05/24/2024 0900 by Jessica Paz RN VTE Prevention/Management: SCDs on (sequential compression devices) Goal: Optimal Comfort and Wellbeing Outcome: Progressing Intervention: Monitor Pain and Promote Comfort Recent Flowsheet Documentation Taken 05/24/2024 09 by Jessica Paz RN Pain Management Interventions: medication (see MAR) Goal: Readiness for Transition of Care Outcome: Progressing Problem: Infection Goal: Absence of Infection Signs and Symptoms Outcome: Progressing Problem: Comorbidity Management Goal: Blood Glucose Levels Within Targeted Range Outcome: Progressing Intervention: Monitor and Manage Glycemia Recent Flowsheet Documentation Taken 05/24/2024 09 by Jessica Paz RN Medication Review/Management: medications reviewed Problem: Skin Injury Risk Increased Goal: Skin Health and Integrity Outcome: Progressing Intervention: Plan: Nurse Driven Intervention: Moisture Management Recent Flowsheet Documentation Taken 05/24/2024 08 by Jessica Paz RN Moisture Interventions: Encourage regular toileting Bathing/Skin Care: bath, complete dressed/undressed incontinence care linen changed * Plan of Care - Jazmín Alcantar RN - 05/24/2024 6:40 AM CDT End of Shift Summary For vital signs and complete assessments, please see documentation flowsheets. Pertinent assessments: VSS, denies pain, scrotal area covered, sm serosang drainage on dressing. Strict bed rest. Able to reposition independently. BG 47, given juice and box lunch recheck 83, . Major Shift Events None Treatment Plan: IV cleocin, zosyn and vanco, poss repeat I&D, ID, WOC, neph and sw consults. Bedside Nurse: Jazmín Alcantar RN Problem: Adult Inpatient Plan of Care Goal: Plan of Care Review Description: The Plan of Care Review/Shift note should be completed every shift. The Outcome Evaluation is a brief statement about your assessment that the patient is improving, declining, or no change. This information will be displayed automatically on your shift note. Outcome: Progressing Flowsheets (Taken 05/24/2024 0639) Outcome Evaluation: Scrotal dressing intact, small draimage, denies pain Plan of Care Reviewed With: patient Overall [...] Manage Fall Risk Recent Flowsheet Documentation Taken 05/23/20240 by Jazmín Alcantar RN Safety Promotion/Fall Prevention: patient and family education activity supervised Intervention: Prevent Skin Injury Recent Flowsheet Documentation Taken 05/23/20240 by Jazmín Alcantar RN Body Position: weight shifting Device Skin Pressure Protection: absorbent pad utilized/changed positioning supports utilized Intervention: Prevent Infection Recent Flowsheet Documentation Taken 05/23/2024 2300 by Jazmín Alcantar RN Infection Prevention: rest/sleep promoted Goal: Optimal Comfort and Wellbeing Outcome: Progressing Goal: Readiness for Transition of Care Outcome: Progressing Intervention: Mutually Develop Transition Plan Recent Flowsheet Documentation Taken 05/23/2024 2100 by Jazmín Alcantar RN Equipment Currently Used at Home: walker, rolling Problem: Infection Goal: Absence of Infection Signs and Symptoms Outcome: Progressing Problem: Comorbidity Management Goal: Blood Glucose Levels Within Targeted Range Outcome: Progressing Problem: Skin Injury Risk Increased Goal: Skin Health and Integrity Outcome: Progressing Intervention: Optimize Skin Protection Recent Flowsheet Documentation Taken 05/23/20240 by Jazmín Alcantar RN Activity Management: bedrest Head of Bed (HOB) Positioning: HOB at 20 degrees Goal Outcome Evaluation: Plan of Care Reviewed With: patient Overall Patient Progress: no changeOverall Patient Progress: no change Outcome Evaluation: Scrotal dressing intact, small draimage, denies pain * Pharmacy-Admission Medication History - Graham Joseph RPH - 05/23/2024 9:51 PM CDT Pharmacist Admission Medication History Admission medication history is complete. The information provided in this note is only as accurateas the sources available at the time of the update. Information Source(s): Family member and Thelma (aunt) via phone and [phone] Pertinent Information: outside meds--none added Changes made to INDUSTRIAL ORDER CLERK medication list: Added: none Deleted: norvasc, lipitor, Changed: protonix Allergies reviewed with patient and updates made in EHR: yes Medication History Completed By: Graham Joseph RPH 05/23/2024 9:51 PM INDUSTRIAL ORDER CLERK Med List Medication Sig Last Dose B Elfdyrc-K-Vcrmu Acid (WESCAPS PO) Take 1 capsule by mouth every evening 05/22/2024 calcium acetate (PHOSLO) 667 MG CAPS capsule Take 1 capsule (667 mg)by mouth 3 times daily with meals 05/22/2024 calcium acetate (PHOSLO) 667 MG CAPS capsule Take 1 capsule (667 mg) once daily with a snack Unknown metoprolol tartrate (LOPRESSOR) 100 MG tablet Take 100 mg by mouth every evening 05/22/2024 at pm pantoprazole (PROTONIX) 40 MG EC tablet Take 40 mg by mouth daily 05/22/2024 sennosides (SENOKOT) 8.6 MG tablet Take 2 tablets by mouth every other day 05/22/2024 warfarin ANTICOAGULANT (COUMADIN) 5 MG tablet Take 1 tablet (5 mg) by mouth Tuesday through Tuesday, no dose on Sat and Sun 05/22/2024 at 5mg * Pharmacy-Vancomycin Dosing Service - John Rosado RPH - 05/23/2024 9:03 PM CDT Pharmacy Vancomycin Initial Note Date of Service May 23, 2024 Patient's 1965 59 year old, male Indication: Skin and Soft Tissue Infection Current estimated CrCl = Estimated Creatinine Clearance: 16.8 mL/min (A) (based on SCr of 4.52 mg/dL (H)). Creatinine for last 3 days 05/23/2024: 1:50 PM Creatinine 4.52 mg/dL Recent Vancomycin Level(s) for last 3 days No results found for requested labs within last 3 days. Vancomycin IV Administrations (past 72 hours) vancomycin (VANCOCIN) 1,750 mg in 0.9% NaCl 500 mL intermittent infusion (mg) 1,750 mg New Bag 05/23/24 1434 Nephrotoxins and other renal medications (From now, onward) Start Dose/Rate Route Frequency Ordered Stop 05/24/24 1400 vancomycin (VANCOCIN) 500 mg vial to attach to NS 100 mL bag 500 mg over 1 Hours Intravenous EVERY 24 HOURS 05/23/24210205/23/24 2200 piperacillin-tazobactam (ZOSYN) 2.25 g vial to attach to NS 100 ml bag Note to Pharmacy: For [facility], [facility] and [facility]: For Zosyn-naive patients, use the Zosyn initial dose + extended infusion order panel. 2.25 g over 30 Minutes Intravenous EVERY 8 HOURS 05/23/242046 Contrast Orders - past 72 hours (72h ago, onward) Start Dose/Rate Route Frequency Stop 05/23/24 1415 iopamidol (ISOVUE-370) solution 500 mL 500 mL Intravenous ONCE 05/23/24 1417 [employer] Prediction of Planned Initial Vancomycin Regimen Loading dose: N/A Regimen: 500 mg IV every 24 hours. Start time: 14:00 on 05/24/2024 Exposure target: AUC24 (range)400-600 mg/L.hr AUC24,ss: 449 mg/L.hr Probability of AUC24 > 400: 63 % Ctrough,ss: 16.3 mg/L Probability of Ctrough,ss > 20: 29 % Probability of nephrotoxicity (Lodise ALBERT 2008): 12 % Plan: Start vancomycin 500 mg IV q24h. Vancomycin monitoring method: AUC Vancomycin therapeutic monitoring goal: 400-600 mg*h/L Pharmacy will check vancomycin levels as appropriate in 1-3 Days. Serum creatinine levels will be ordered daily for the first week of therapy and at least twice weekly for subsequent weeks. John Rosado RPH * Op Note - Lizandro Barron MD - 05/23/2024 6:36 PM CDT OPERATIVE REPORT DATE OF SURGERY: 05/23/24 LOCATION OF SURGERY: [facility] OR PREOPERATIVE DIAGNOSIS: (R79.1) Supratherapeutic INR (N49.3) Mita's gangrene of scrotum (H28) POSTOPERATIVE DIAGNOSIS: (R79.1) Supratherapeutic INR (N49.3) Mita's gangrene of scrotum (H28) START TIME: 6:36 PM END TIME: 7:00 PM PROCEDURE PERFORMED: DEBRIDEMENT OF SCROTAL SKIN AND SUBCUTANEOUS TISSUES FOR NECROTIZING SOFT TISSUE INFECTION, MITA'S GANGRENE STAFF SURGEON: Lizandro Barron MD ANESTHESIA: General. ESTIMATED BLOOD LOSS: 10 mL. DRAINS AND TUBES: NONE COMPLICATIONS: None. DISPOSITION: PACU. SPECIMENS OBTAINED: ID Type Source Tests Collected by Time Destination A : SCROTAL TISSUE Tissue Scrotum ANAEROBIC BACTERIAL CULTURE ROUTINE, GRAM STAIN, AEROBIC BACTERIAL CULTURE ROUTINE Lizandro Barron MD 05/23/2024 6:42 PM SIGNIFICANT FINDINGS: Evidence of the scrotal abscess and Imta's gangrene with significant prior spontaneous drainage and rupture of the scrotal skin wall with significant necrotizing soft tissue. The wound was debrided back to healthy tissue, irrigated copiously, and packed. HISTORY OF PRESENT ILLNESS: Herminio Victor is a 59 year old man with complex medical history including ESRD on hemodialysis, diabetes, history of DVT with chronic warfarin, cognitive impairment, diabetic retinopathy, blindness, who presented with scrotal swelling and foul-smelling drainage with CT scan consistent with Mita's gangrene. He presented with a supratherapeutic INR which has been reversed. He was started appropriately on broad-spectrum antibiotics. OPERATION PERFORMED: Informed consent was obtained and the patient was brought to the operating room where general anesthesia was induced. The patient was given appropriate preoperative antibiotics and positioned supine.The patient was then repositioned in dorsal lithotomy with all pressure points padded. We then performed a timeout, verifying the correct patient's site and procedure to be performed. A 16 Slovak coud?? catheter was placed through the urethra, though there was no return of urine despite having the catheter and it is unknown how much urine he normally produces at baseline. The scrotum was noted to have spontaneously ruptured from the left scrotum down the median raphae. There wasanother site of drainage 2 cm posterior to this and the skin was incised and the wound was opened. Significant necrotic soft tissue was debrided and sent for wound culture. The wound was copiously irrigated and further debrided back to healthy appearing tissue. There was no violation of the tunica vaginalis and the testicles were not exposed. The wound tracked few centimeters along the left groinwith no further evidence of deeper penetration or tracking. Following complete debridement, hemostasis was ensured. The wound was then packed with wet-to-dry Kerlix, covered with gauze and will be placed in a scrotal support. The Valadez catheter was removed. He was emerged from anesthesia and taken to the recovery room in stable condition. Lizandro Barron MD Urology [facility] documented in this encounter Plan of Treatment Pending Results Name Type Priority Associated Diagnoses Date /Time Blood Culture Peripheral Blood Microbiology STAT 05/23/2024 1:50 PM CDT Anaerobic Bacterial Culture Routine Microbiology Routine 05/23/2024 6:42 PM CDT Tissue Aerobic Bacterial Culture Routine Microbiology Routine 05/23/2024 6:42 PM CDT Scheduled Orders Name Type Priority Associated Diagnoses Orde r Schedule INR Lab STAT Enter conditio n for order release in comments for 1 Occurrences starting 05/23/2024 CPAP orders Respiratory Care Routine QHS unt il discontinued starting 05/23/2024 Vancomycin level Lab Routine AM Draw for 1 Occurrences starting 05/25/2024 until 05/25/2024 documented as of this encounter Procedures The patient is currently admitted. The [...] 05/24/2024 9:12 AM CDT CBC WITH PLATELETS AND DIFFERENTIAL Routine 05/24/2024 6:09 AM CDT CBC WITH PLATELETS & DIFFERENTIAL Routine 05/24/2024 6:09 AM CDT INR Timed 05/24/2024 6:09 AM CDT COMPREHENSIVE METABOLIC PANEL Routine 05/24/2024 6:09 AM CDT GLUCOSE BY METER [...] CULTURE ROUTINE Routine 05/23/2024 6:42 PM CDT INCISION AND DRAINAGE, ABSCESS, SCROTUM 05/23/2024 6:06 PM CDT Supratherapeutic INR Mita's gangrene of scrotum (H28) GLUCOSE BY METER Routine 05/23/2024 5:41 PM CDT EKG 12-LEAD, TRACING ONLY STAT 05/23/2024 5:08 PM CDT INR STAT 05/23/2024 3:[address] ABDOMEN PELVIS W CONTRAST STAT 05/23/2024 2:19 PM CDT TYPE AND SCREEN, ADULT STAT 2:07 PM CDT ABO/RH TYPE AND SCREEN STAT 2:07 PM CDT CBC WITH PLATELETS AND DIFFERENTIAL STAT 05/23/2024 1:50 PM CDT CBC WITH PLATELETS & DIFFERENTIAL STAT 05/23/2024 1:50 PM CDT INR STAT 05/23/2024 1:50 PM CDT LACTIC ACID WHOLE BLOOD STAT 05/23/2024 1:50 PM CDT COMPREHENSIVE METABOLIC PANEL STAT 05/23/2024 1:50 PM CDT BLOOD CULTURE STAT 05/23/2024 1:50 PM CDT documented in this encounter Results * Glucose by meter (05/24/2024 8:52 PM CDT) GLUCOSE BY METER POCT 96 70 - 99 mg/dL 05/24/2024 8:59 PM CDT [facility] LABORATORY POC Blood, Capillary BLOOD SPECIMEN / Unknown 05/24/2024 8:52 PM CDT 05/24/2024 8:59 PM CDT Antonino DEAN - [facility] POCT LABORATORY [facility] Lab [address] Lab (1st floor, no room number) [place] [id number] [place] [address] * Glucose by meter (05/24/2024 5:05 PM CDT) GLUCOSE BY METER POCT 84 70 - 99 mg/dL 05/24/2024 5:32 PM CDT [facility] LABORATORY POC Blood, Capillary BLOOD SPECIMEN / Unknown 05/24/2024 5:05 PM CDT 05/24/2024 5:32 PM CDT Antonino Cheek MD LAB - BEAKER POCT Performing Organization Address [facility]/ZIP Co de Phone Number LABORATORY [facility] Lab [address] Lab (1st floor, no room number) [address] [place] [address] * (ABNORMAL) INR (05/24/2024 2:16 PM CDT) INR 1.16(H) 0.85 - 1.15 05/24/2024 2:34 PM CDT [facility] LABORATORY Blood BLOOD SPECIMEN / Unknown Venipuncture / Unknown 05/24/2024 2:16 PM CDT 05/24/2024 2:21 PM CDT Lizandro Barron MD LAB - BLOOD ORDERABL ES Performing Organization Address City/[facility]/ZIP Co de Phone Number [facility] Lab [address] Lab (1st floor, no room number) [place] [id number] * Glucose by meter (05/24/2024 12:20 PM CDT) GLUCOSE BY METER POCT 75 70 - 99 mg/dL 05/24/2024 12:26 PM CDT [facility] LABORATORY POC Blood, Capillary BLOOD SPECIMEN / Unknown 05/24/2024 12:20 PM CDT 05/24/2024 12:26 PM CDT Antonino Cheek MD LAB - BEAKER POCT RH LABORATORY [facility] Lab [address] Lab (1st floor, no room number) [place] [id number] [place] [address] * Glucose by meter (05/24/2024 9:12 AM CDT) GLUCOSE BY METER POCT 86 70 - 99 mg/dL 05/24/2024 9:19 AM CDT [facility] LABORATORY POC Blood, Capillary BLOOD SPECIMEN / Unknown 05/24/2024 9:12 AM CDT 05/24/2024 9:19 AM CDT Antonino Cheek MD LAB - BEAKER POCT Performing Organization Address [facility]/ZIP Co de Phone Number RH LABORATORY [facility] Lab [address] Lab (1st floor, no room number) [address] * (ABNORMAL) CBC with platelets and differential (05/24/2024 6:09 AM CDT) WBC Count 8.2 4.0 - 11.0 10e3/uL [...] LAB - BLOOD ORDERABL ES RH LABORATORY [facility] Lab [address] Lab (1st floor, no room number) [place] [address], [facility] * (ABNORMAL) Comprehensive metabolic panel (05/24/2024 6:09 AM CDT) Sodium 131(L) 135 - 145 mmol/L 05/24/2024 6:40 AM CDT [facility] LABORATORY Potassium 4.3 3.4 - 5.3 mmol/L 05/24/2024 6:40 AM CDT [facility] LABORATORY Carbon Dioxide (CO2) 24 22 - 29 mmol/L 05/24/2024 6:40 AM CDT [facility] LABORATORY Anion Gap 13 7 - 15 mmol/L 05/24/2024 6:40 AM CDT [facility] LABORATORY Urea Nitrogen 28.9(H) 8.0 - 23.0 mg/dL 05/24/2024 6:40 AM CDT [facility] LABORATORY Creatinine 5.89(H) 0.67 - 1.17 mg/dL 05/24/2024 6:40 AM CDT [facility] LABORATORY GFR Estimate 10(L) >60 mL/min/1.7 3m2 [...] MD LAB - BLOOD ORDERABL ES LABORATORY [facility] [address] Lab (1st floor, no room number) [address] [place] [address] * INR (05/24/2024 6:09 AM CDT) INR 1.14 0.85 - 1.15 05/24/2024 6:27 AM CDT [facility] LABORATORY Blood STRUCTURE OF LEFT HAND / Unknown Venipuncture / Unknown 05/24/2024 6:09 AM CDT 05/24/2024 6:14 AM CDT Lizandro Barron MD LAB - BLOOD ORDERABL ES Performing Organization Address [facility]/ZIP Co de Phone Number LABORATORY [facility] Lab [address] Lab (1st floor, no room number) [address] [place] [address] * (ABNORMAL) Glucose by meter (05/24/2024 4:49 AM CDT) GLUCOSE BY METER POCT 119(H) 70 - 99 mg/dL 05/24/2024 4:56 AM CDT LABORATORY POC Blood, Capillary BLOOD SPECIMEN / Unknown 05/24/2024 4:49 AM CDT 05/24/2024 4:56 AM CDT Antonino Cheek MD LAB - BEAKER POCT LABORATORY POC [facility] Care Lab [address] Lab (1st floor, no room number) [address], [facility] * (ABNORMAL) Glucose by meter (05/24/2024 1:13 AM CDT) GLUCOSE BY METER POCT 100(H) 70 - 99 mg/dL 05/24/2024 1:20 AM CDT RH LABORATORY POC Blood, Capillary BLOOD SPECIMEN / Unknown 05/24/2024 1:13 AM CDT 05/24/2024 1:20 AM CDT Antonino Cheek MD LAB - BEAKER POCT LABORATORY [facility] Lab [address] Lab (1st floor, no room number) [address] * INR (05/23/2024 10:19 PM CDT) INR 1.04 0.85 - 1.15 05/23/2024 10:43 PM CDT RH LABORATORY Blood STRUCTURE OF LEFT UPPER LIMB / Unknown Venipuncture / Unknown 05/23/2024 10:19 PM CDT 05/23/2024 10:26 PM CDT Lizandro Barron MD LAB - BLOOD ORDERABL ES Performing Organization Address [facility]/ZIP Co de Phone Number [facility] Lab [address] Lab (1st floor, no room number) [address] [place] [address] * Glucose by meter (05/23/2024 9:58 PM CDT) GLUCOSE BY METER POCT 83 70 - 99 mg/dL 05/23/2024 10:04 PM CDT RH LABORATORY POC Blood, Capillary BLOOD SPECIMEN / Unknown 05/23/2024 9:58 PM CDT 05/23/2024 10:04 PM CDT Antonino DEAN - BEAKER POCT LABORATORY [facility] Lab [address] Lab (1st floor, no room number) [place] [id number] * (ABNORMAL) Glucose by meter (05/23/2024 9:06 PM CDT) GLUCOSE BY METER POCT 47(LL) 70 - 99 mg/dL 05/23/2024 9:13 PM CDT RH LABORATORY POC Comment:Dr/RN Notified Blood, Capillary BLOOD SPECIMEN / Unknown 05/23/2024 9:06 PM CDT 05/23/2024 9:13 PM CDT Antonino Cheek MD LAB - BEAKER POCT LABORATORY [facility] [address] [facility], no room number) [place] [id number] * Glucose by meter (05/23/2024 8:41 PM CDT) GLUCOSE BY METER POCT 78 70 - 99 mg/dL 05/23/2024 8:48 PM CDT LABORATORY POC Blood, Capillary BLOOD SPECIMEN / Unknown 05/23/2024 8:41 PM CDT 05/23/2024 8:48 PM CDT Antonino Cheek MD LAB - BEAKER POCT LABORATORY [facility] Lab [address] Lab (1st floor, no room number) [place] [phone] [place] [address] * (ABNORMAL) Glucose by meter (05/23/2024 7:55 PM CDT) GLUCOSE BY METER POCT 67(L) 70 - 99 mg/dL 05/23/2024 8:02 PM CDT LABORATORY POC Blood, Capillary BLOOD SPECIMEN / Unknown 05/23/2024 7:55 PM CDT 05/23/2024 8:02 PM CDT Antonino Cheek MD LAB - BEAKER POCT RH LABORATORY [facility] Lab [address] Lab (1st floor, no room number) [place] [address] * (ABNORMAL) Gram Stain (05/23/2024 6:42 [...] - MICRO GENERAL ORDERABLES [facility] IDD LABORATORY [facility] Inf. Diseases Diag. Lab [address] [facility] [place] [address] * Glucose by meter (05/23/2024 5:41 PM CDT) GLUCOSE BY METER POCT 90 70 - 99 mg/dL 05/23/2024 5:49 PM CDT LABORATORY POC Blood, Capillary BLOOD SPECIMEN / Unknown 05/23/2024 5:41 PM CDT 05/23/2024 5:49 PM CDT iV GAVIRIA - BEAKER POC T RH LABORATORY [facility] Lab [address] Lab (1st floor, no room number) [place] [address] * EKG 12-lead, tracing only (05/23/2024 5:08 PM CDT) Systolic Blood Pressure mmHg RADIOLOGY RESULTS Diastolic Blood Pressure mmHg RADIOLOGY RESULTS Ventricular Rate 63 BPM RAD IOLOGY RESULTS Atrial Rate 63 BPM RADIOLOG Y RESULTS [place] Interval 222 ms RADIOLOG Y RESULTS QRS Duration 102 ms RADIOLO GY RESULTS QT 448 ms RADIOLOGY RESULTS QTc 458 ms RADIOLOGY RESULTS P [place] 54 degrees RADIOLOGY RESULTS R AXIS -5 degrees RADIOLOGY RESULTS T [place] 24 degrees RADIOLOGY RESULTS Interpretation ECG Sinus rhythm with 1st degree A-V block Septal infarct , age undetermined Abnormal ECG When compared with ECG of 02-Mar-2024 14:00, Septal infarct is now Present No significant change was found Confirmed by - EMERGENCY ROOM, PHYSICIAN ([id number]), electronic news gathering editor LIZANDRO ZABALA ([id number]) on 05/24/2024 6:44:53 AM RADIOLOGY RESULTS 05/23/2024 5:08 PM CDT 05/24/2024 6:44 AM CDT Pan Michelle MD ECG ORDERABLES RADIOLOGY RESULTS * (ABNORMAL) INR (05/23/2024 3:42 PM CDT) INR 1.29(H) 0.85 - 1.15 05/23/2024 4:21 PM CDT LABORATORY Blood BLOOD SPECIMEN / Unknown Venipuncture / Unknown 05/23/2024 3:42 PM CDT 05/23/2024 3:45 PM CDT Vi Coe DO LAB - BLOOD ROVERTO WHITMORE LABORATORY [facility] [address] Lab (1st floor, no room number) [place] [address], [facility] * CT Abdomen Pelvis w Contrast (05/23/2024 2:19 PM CDT) Anatomical Region Laterality Modality Abdomen/Pelvis, SUBRAD CT YAIMA DY, UMP CT ABDOMEN PELVIS, RAD CT Computed Tomography Impressions 05/23/2024 2:43 PM CDT IMPRESSION: 1. 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 2. ??Other chronic findings as discussed above. Findings were discussed with Dr. Kenna Coe at 2:35 PM. MIKE SANTANA MD SYSTEM ID: [id number] Narrative 05/23/2024 2:[address] ABDOMEN [...] veins which are not included in the [id number]. MUSCULOSKELETAL: Stable degenerative changes at L4-L5 with [...] veins which are not included in the [id number]. 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 No destructive lesions in the bones. IMPRESSION: 1. 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 2. Other chronic findings as discussed above. Findings were discussed with Dr. Kenna Coe at 2:35 PM. MIKE SANTANA MD SYSTEM ID: [id number] Vi Coe DO IMG CT ORDERABLE S * Adult Type and Screen (05/23/2024 2:07 PM CDT) ABO/RH(D) O POS 05/23/2024 1:37 PM CDT RH BLOOD BANK Antibody Screen Negative Negative 05/23/2024 1:37 PM CDT RH BLOOD BANK SPECIMEN EXPIRATION DATE [id number] 05/23/2024 1:37 PM CDT RH BLOOD BANK Blood BLOOD SPECIMEN / Unknown Venipuncture / Unknown 05/23/2024 2:07 PM CDT 05/23/2024 2:10 PM CDT Vi Coe DO LAB - BLOOD BANK TEST ORDER RH BLOOD BANK [place] [address], [facility] * (ABNORMAL) CBC with platelets and differential (05/23/2024 1:50 PM CDT) [facility] Signature WBC Count 7.8 4.0 - 11.0 10e3/uL 05/23/2024 2:00 PM CDT RH LABORATORY RBC Count 3.54(L) 4.40 - 5.90 10e6/uL 05/23/2024 2:00 PM CDT [facility] LABORATORY Hemoglobin 9.7(L) 13.3 - 17.7 g/dL 05/23/2024 2:00 PM CDT [facility] LABORATORY Hematocrit 32.9(L) 40.0 - 53.0 % 05/23/2024 2:00 PM CDT [facility] LABORATORY MCV 93 78 - 100 fL 05/23/2024 2:00 PM CDT [facility] LABORATORY MCH 27.4 26.5 - 33.0 pg 05/23/2024 2:00 PM CDT [facility] LABORATORY MCHC 29.5(L) 31.5 - 36.5 g/dL 05/23/2024 2:00 PM CDT [facility] LABORATORY RDW 20.2(H) 10.0 - 15.0 % 05/23/2024 2:00 PM CDT [facility] LABORATORY Platelet Count 162 150 - 450 10e3/uL 05/23/2024 2:00 PM CDT [facility] LABORATORY % Neutrophils 74 % 05/23/2024 2:00 PM CDT [facility] LABORATORY % Lymphocytes 9 % 05/23/2024 2:00 PM CDT [facility] LABORATORY % Monocytes 10 % 05/23/2024 2:00 PM CDT [facility] LABORATORY % Eosinophils 2 % 05/23/2024 2:00 PM CDT [facility] LABORATORY % Basophils 0 % 05/23/2024 2:00 PM CDT [facility] LABORATORY % Immature Granulocytes 5 % 05/23/2024 2:00 PM CDT [facility] LABORATORY NRBCs per 100 WBC 0 <1 /100 024 2:00 PM CDT [facility] LABORATORY Absolute Neutrophils 5.8 1.6 - 8.3 10e3/uL 05/23/2024 2:00 PM CDT [facility] LABORATORY Absolute Lymphocytes 0.7(L) 0.8 - 5.3 10e3/uL 05/23/2024 2:00 PM CDT [facility] LABORATORY Absolute Monocytes 0.8 0.0 - 1.3 10e3/uL 05/23/2024 2:00 PM CDT [facility] LABORATORY Absolute Eosinophils 0.1 0.0 - 0.7 10e3/uL 05/23/2024 2:00 PM CDT [facility] LABORATORY Absolute Basophils 0.0 0.0 - 0.2 10e3/uL 05/23/2024 2:00 PM CDT [facility] LABORATORY Absolute Immature Granulocytes 0.4 <=0.4 10e3/uL 05/23/2024 2:00 PM CDT [facility] LABORATORY Absolute NRBCs 0.0 10e3/uL 05/23/2024 2:00 PM CDT [facility] LABORATORY Blood BLOOD SPECIMEN / Unknown Venipuncture / Unknown 05/23/2024 1:50 PM CDT 05/23/2024 1:55 PM CDT [facility] [place] MY[facility]AN[facility] Lab [address] (1st floor, no room number) [address] * Lactic acid whole blood (05/23/2024 1:50 PM CDT) Pathologist [facility] Lactic Acid 0.9 0.7 - 2.0 mmol/L 05/23/2024 1:57 PM CDT LABORATORY Blood BLOOD SPECIMEN / Unknown Venipuncture / Unknown 05/23/2024 1:50 PM CDT 05/23/2024 1:54 PM CDT [facility] MYRANDA [facility] Lab [address] (1st floor, no room number) [place] [id number] [place] [address] * (ABNORMAL) Comprehensive metabolic panel (05/23/2024 1:50 PM CDT) Sodium 134(L) 135 - 145 mmol/L 05/23/2024 2:21 PM CDT RH LABORATORY Potassium 3.6 3.4 - 5.3 mmol/L 05/23/2024 2:21 PM CDT [facility] LABORATORY Carbon Dioxide (CO2) 29 22 - 29 mmol/L 05/23/2024 2:21 PM CDT RH LABORATORY Anion Gap 10 7 - 15 mmol/L 05/23/2024 2:21 PM CDT [facility] LABORATORY Urea Nitrogen 19.9 8.0 - 23.0 mg/dL 05/23/2024 2:21 PM CDT RH LABORATORY Creatinine 4.52(H) 0.67 - 1.17 mg/dL 05/23/2024 2:21 PM CDT [facility] LABORATORY GFR Estimate 14(L) >60 mL/min/1.7 3m2 05/23/2024 2:21 PM CDT [facility] LABORATORY Comment:eGFR calculated usin 2020 CKD-EPI equation. Calcium 9.1 8.8 - 10.4 mg/dL 05/23/2024 2:21 PM CDT [facility] LABORATORY Comment:Reference intervals for this test were updated on 04/24/2024 to reflect our healthy population more accurately. There may be differences in the flagging of prior results with similar values performed with this method. Those prior results can be interpreted in the context of the updated reference intervals. Chloride 95(L) 98 - 107 mmol/L 05/23/2024 2:21 PM CDT [facility] LABORATORY Glucose 175(H) 70 - 99 mg/dL 05/23/2024 2:21 PM CDT [facility] LABORATORY Alkaline Phosphatase 72 40 - 150 U/L 05/23/2024 2:21 PM CDT [facility] LABORATORY AST 21 0 - 45 U/L 05/23/2024 2:21 PM CDT [facility] LABORATORY ALT 26 0 - 70 U/L 05/23/2024 2:21 PM CDT [facility] LABORATORY Protein Total 7.1 6.4 - 8.3 g/dL 05/23/2024 2:21 PM CDT RH LABORATORY Albumin 3.2(L) 3.5 - 5.2 g/dL 05/23/2024 2:21 PM CDT [facility] LABORATORY Bilirubin Total 0.3 <=1.2 mg/dL 05/23/2024 2:21 PM CDT [facility] LABORATORY Blood BLOOD SPECIMEN / Unknown Venipuncture / Unknown 05/23/2024 1:50 PM CDT 05/23/2024 1:55 PM CDT Vi Riverared Coe LAB - BLOOD ROVERTO WHITMORE [facility] Lab [address] (1st floor, no room number) [place] [address], [facility] * (ABNORMAL) INR (05/23/2024 1:50 PM CDT) [facility] Signature INR >10.00(HH) 0.85 - 1.15 05/23/2024 2:30 PM CDT LABORATORY Blood BLOOD SPECIMEN / Unknown Venipuncture / Unknown 05/23/2024 1:50 PM CDT 05/23/2024 1:55 PM CDT Vi Kenna Coe LAB - BLOOD ROVERTO WHITMORE [facility] Care Lab [address] Lab (1st floor, no room number) [place] [address], [facility] documented in this encounter Visit Diagnoses Diagnosis Supratherapeutic INR Abnormal coagulation profile 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 Supratherapeutic INR Abnormal coagulation profile 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 The following medications may be removed by dialysis and should be given after dialysis: metoprolol, Zosyn, vancomycin calcium acetate (PHOSLO) capsule 667 mg 667 mg, Oral, 3 TIMES DAILY WITH MEALS, First dose on Padmaja 05/24/24 at 0900, Best if given with meals. $Given 05/24/2024 5:06 PM CDT 667 mg $Given 05/24/2024 12:40 PM CDT 667 mg $Given 05/24/2024 9:02 AM CDT 667 mg clindamycin (CLEOCIN) 900 mg in 50 mL D5W intermittent infusion Routine, 900 mg, Intravenous, EVERY 8 HOURS, First dose on Tue05/23/24 at 2200, Indications: Skin and Soft Tissue Infection $New Bag 05/24/2024 9:06 PM CDT 900 mg 100 m L/hr $New Bag 05/24/2024 1:42 PM CDT 900 mg 100 mL/hr $New Bag 05/24/2024 5:49 AM CDT 900 mg 100 mL/hr dextrose 50 % injection 25-50 mL 25-50 mL, Intravenous, EVERY 15 MIN PRN, low blood sugar, Administer over 1-5 Minutes, Starting on Tue05/23/24 at 2046, Use if have IV access, BG less than 70 mg/dL and meet dose criteria below: Dose if conscious and alert (or disorientated) and NPO = 25 mL Dose if unconscious / not alert = 50 mL Give first dose for initial blood glucose less than 70 mg/dL. If blood glucose at 15 minute recheck is less than or equal to 80 mg/dL continue to administer carbohydrate treatment every 15 minutes, as needed, based on blood glucose and assessment parameters until blood glucose level is above 80 mg/dL x 2 consecutive 15 minute checks. glucagon injection 1 mg 1 mg, Subcutaneous, EVERY 15 MIN PRN, low blood sugar, May repeat x 1 only, Starting on Tue05/23/24 at 2046, May give SQ or IM. ONLY use glucagon IF patient has NO IV access AND is UNABLE to swallow AND blood glucose is LESS than or EQUAL to 50 mg/dL. glucose gel 15-30 g 15-30 g, Oral, EVERY 15 MIN PRN, low blood sugar, Starting on Tue05/23/24 at 2046, Give first dose for initial blood glucose less than 70 mg/dL per the dosing instructions below. If blood glucose at 15 minute rechecks is still less than or equal to 80 mg/dL, continue to administer doses per blood glucose parameters every 15 minutes, as needed, until blood glucose level is at or above 80 mg/dL x 2 consecutive 15 minute checks. Dosing Instructions: ~If patient is conscious and able to swallow and NO enteral tube For initial BG 51-69mg/dL OR 15 minute recheck BG 51- 80 mg/dL - give 15 g For BG less than or equal to 50 mg/dL - give 30 g ~ If Enteral tube For initial BG 51-69mg/dL OR 15 minute recheck BG 51- 80 mg/dL - give apple juice 120 mL (4 oz or 15 g of CHO) via enteral tube For BG less than or equal to 50 mg/dL - Give apple juice 240 mL (8 oz or 30 g of CHO) via enteral tube ~Oral gel is preferable for conscious and able to swallow patient. ~IF gel unavailable or patient refuses may provide apple juice per Enteral tube dosing instructions. Document juice on I and O flowsheet. HOLD: warfarin (COUMADIN) therapy Medication(s) to hold: warfarin (COUMADIN), Parameter for hold (doses,days,conditions) : HOLD until MD places a RESUME medication order, HOLD, Starting on Tue05/23/24 at 1432, Until Discontinued, Hold warfarin (COUMADIN) HYDROmorphone (DILAUDID) injection 0.2-0.4 mg 0.2-0.4 mg, Intravenous, EVERY 2 HOURS PRN, moderate pain, Starting on Tue05/23/24 at 2047 $Given 05/24/2024 9:22 AM CDT 0.2 mg insulin aspart (NovoLOG) injection (RAPID ACTING) 1-7 Units, Subcutaneous, 3 TIMES DAILY BEFORE MEALS, First dose on Tue05/24/24 at 1200, Correction Scale - MEDIUM INSULIN RESISTANCE DOSING Do Not give Correction Insulin if Pre-Meal BG less than 140. For Pre-Meal BG 140 - 189 give 1 unit. For Pre-Meal BG 190 - 239 give 2 units. For Pre-Meal BG 240 - 289 give 3 units. For Pre-Meal BG 290 - 339 give 4 units. For Pre-Meal BG 340- 389 give 5 units. For Pre-Meal BG 390-439 give 6 units For Pre-Meal BG greater than or equal to 440 give 7 units. To be given with prandial insulin, and based on pre-meal blood glucose. Administering insulin within 5 minutes of the start of the meal is ideal. Administer insulin no more than 30 minutes after the start of the meal, unless directed otherwise by provider. Notify provider if glucose greater than or equal to 350 mg/dL after administration of correction dose. insulin aspart (NovoLOG) injection (RAPID ACTING) 1-5 Units, Subcutaneous, AT BEDTIME, First dose on Tue05/24/24 at 2200, MEDIUM INSULIN RESISTANCE DOSING Do [...] 350 mg/dL after administration of correction dose. metoprolol tartrate (LOPRESSOR) tablet 100 mg 100 mg, Oral, EVERY MORNING, First dose on Tue05/24/24 at 0900, Tablets can be crushed and given via enteral route. $Given 05/24/2024 9:02 AM CDT 100 mg naloxone (NARCAN) injection 0.2 mg 0.2 mg, Intravenous, EVERY 2 MIN PRN, opioid reversal, Starting on Tue05/23/24 at 2100, Administer intravenous route when available and notify [...] have not improved after 4 naloxone doses. naloxone (NARCAN) injection 0.2 mg 0.2 mg, Intramuscular, EVERY 2 MIN PRN, opioid reversal, Starting on Tue05/23/24 at 2100, Administer intramuscular if an intravenous route is [...] have not improved after 4 naloxone doses. naloxone (NARCAN) injection 0.4 mg 0.4 mg, Intravenous, EVERY 2 MIN PRN, opioid reversal, Starting on Tue05/23/24 at 2100, Administer intravenous route when available and notify [...] have not improved after 4 naloxone doses. naloxone (NARCAN) injection 0.4 mg 0.4 mg, Intramuscular, EVERY 2 MIN PRN, opioid reversal, Starting on Tue05/23/24 at 2100, Administer intramuscular if an intravenous route is [...] have not improved after 4 naloxone doses. ondansetron (ZOFRAN) injection 4 mg 4 mg, Intravenous, EVERY 6 HOURS PRN, nausea, vomiting, Administer over 2-5 Minutes, Starting on Padmaja 05/24/24 at 1412 $Given 05/24/2024 2:58 PM CDT 4 m g pantoprazole (PROTONIX) EC tablet 40 mg 40 mg, Oral, EVERY MORNING BEFORE BREAKFAST, First dose on Padmaja 05/24/24 at 0800, DO NOT CRUSH. $Given 05/24/2024 9:02 AM CDT 40 mg piperacillin-tazobactam (ZOSYN) 2.25 g vial to attach to NS 100 ml bag Routine, 2.25 g, Intravenous, EVERY 8 HOURS, First dose on Tue05/23/24 at 2200, Dose adjusted per renal dosing policy. Estimated CrCl = 10-29 mL/min. Lactated Ringer's solution is not compatible with piperacillin-tazobactam for injection., Indications: Skin and Soft Tissue Infection $New Bag 05/24/2024 10:04 PM CDT 2.25 g $New Bag 05/24/2024 2:20 PM CDT 2.25 g $New Bag 05/24/2024 5:52 AM CDT 2.25 g senna-docusate (SENOKOT-S/PERICOLACE) 8.6-50 MG per tablet 1 tablet 1 tablet, Oral, 2 TIMES DAILY PRN, constipation, Starting on Tue05/23/24 at 2046, If no bowel movement in 24 hours, [...] 2 TIMES DAILY PRN, constipation, Starting on Tue05/23/24 at 2047, IF more than 1 constipation PRN medication is ordered, administer step-jane as indicated, moving to the next step ONLY if prior step ineffective. Step 1: senna-docusate (SENOKOT-S; PERICOLACE) OR bisacodyl (DULCOLAX) EC tablet Step 2: polyethylene glycol (MIRALAX/GLYCOLAX) Step 3: bisacodyl (DULCOLAX) suppository Step 4: enema Hold for loose stools. sennosides (SENOKOT) tablet 2 tablet 2 tablet, Oral, EVERY OTHER DAY, First dose on Tue05/24/24 at 0900, Hold for loose stools. $Given 05/24/2024 9:02 AM CDT 2 tablets sodium chloride (PF) 0.9% PF flush 3 mL 3 mL, Intracatheter, EVERY 8 HOURS, First dose on Tue05/23/24 at 2100, to lock peripheral IV dormant line $Given 05/24/2024 9:06 PM CDT 3 mLs $Given 05/24/2024 12:40 PM CDT 3 mLs $Given 05/24/2024 5:51 AM CDT [address] watson - receiving intermittent dosing Routine, 1 each, Intravenous, SEE ADMIN INSTRUCTIONS, Starting on Tue05/24/24 at 0818, This order is meant to notify providers that this patient is receiving intermittent doses of vancomycin. Do NOT chart on this order., Indications: Skin and Soft Tissue Infection Inactive Administered Medications - up to 3 most recent administrations Medication Order MAR Action Action Date Dose Rate Site sodium chloride 0.9% (bottle) irrigation PRN, Starting on Tue05/23/24 at 1855, Intra-procedure $Given 05/23/2024 6:55 PM CDT 1,000 mLs Operative Site/Surgical Site documented in this encounter Active and Recently Administered Medications Times are shown in CDT. Scheduled Medication Order 05/22/2024 05/23/2024 05/24/2024 - MEDICATION INSTRUCTIONS for Dialysis Patients - SEE ADMIN INSTRUCTIONS, Starting on Tue05/24/24 at 0923, Until Discontinued, Do not give any medication that may affect blood pressure or volume before dialysis. The following medications may be removed by dialysis and should be given after dialysis: metoprolol, Zosyn, vancomycin calcium acetate (PHOSLO) capsule 667 mg 667 mg, Oral, 3 TIMES DAILY WITH MEALS, First dose on Tue05/24/24 at 0900, Best if given with meals. 0902 ($Given - Provider: Jessica Paz RN)1240 ($Given - Provider: Jessica Paz RN)1706 ($Given - Provider: Jessica Paz RN) clindamycin (CLEOCIN) 900 mg in 50 mL D5W intermittent infusion (COMPLETED) STAT, 900 mg, Intravenous, ONCE, On Tue05/23/24 at 1340, For 1 dose, Indications: Skin and Soft Tissue Infection 1400 ($New Bag - Provider: Kassidy Morel RN)1432 (Stopped - Provider: Kassidy Morel RN) clindamycin (CLEOCIN) 900 mg in 50 mL D5W intermittent infusion Routine, 900 mg, Intravenous, EVERY 8 HOURS, First dose on Tue05/23/24 at 2200, Indications: Skin and Soft Tissue Infection 2153 ($New Bag - Provider: Jazmín Alcantar RN) 0549 ($New Bag - Provider: Jazmín Alcantar RN)1342 ($New Bag - Provider: Jessica Paz RN)2106 ($New Bag - Provider: Marce Leon RN) insulin aspart (NovoLOG) injection (RAPID ACTING) 1-7 Units, Subcutaneous, 3 TIMES DAILY BEFORE MEALS, First dose on Tue05/24/24 at 1200, Correction Scale - MEDIUM INSULIN RESISTANCE DOSING Do Not give Correction Insulin if Pre-Meal BG less than 140. For Pre-Meal BG 140 - 189 give 1 unit. For Pre-Meal BG 190 - 239 give 2 units. For Pre-Meal BG 240 - 289 give 3 units. For Pre-Meal BG 290 - 339 give 4 units. For Pre-Meal BG 340- 389 give 5 units. For Pre-Meal BG 390-439 give 6 units For Pre-Meal BG greater than or equal to 440 give 7 units. To be given with prandial insulin, and based on pre-meal blood glucose. Administering insulin within 5 minutes of the start of the meal is ideal. Administer insulin no more than 30 minutes after the start of the meal, unless directed otherwise by provider. Notify provider if glucose greater than or equal to 350 mg/dL after administration of correction dose. 1229 (Not Given - Provider: Jessica Paz RN - Reason: Order parameters not met)1708 (Not Given - Provider: Jessica Paz RN - Reason: Order parameters not met) insulin aspart (NovoLOG) injection (RAPID ACTING) 1-5 Units, Subcutaneous, AT BEDTIME, First dose on Tue05/24/24 at 2200, MEDIUM INSULIN RESISTANCE DOSING Do [...] 350 mg/dL after administration of correction dose. 2118 (Not Given - Provider: Marce Leon RN - Reason: Order parameters not met - Comment: BG 96) iopamidol (ISOVUE-370) solution 500 mL (COMPLETED) 500 mL, Intravenous, ONCE, On Tue05/23/24 at 1415, For 1 dose 1417 ($Given - Provider: Elie Vann) metoprolol tartrate (LOPRESSOR) tablet 100 mg 100 mg, Oral, EVERY MORNING, First dose on Tue05/24/24 at 0900, Tablets can be crushed and given via enteral route. 09 ($Given - Provider: Jessica Paz RN) pantoprazole (PROTONIX) EC tablet 40 mg 40 mg, Oral, EVERY MORNING BEFORE BREAKFAST, First dose on Tue05/24/24 at 0800, DO NOT CRUSH. 09 ($Given - Provider: Jessica Paz RN) phytonadione (AQUAMEPHYTON) 10 MG/ML 10 mg in sodium chloride 0.9 % 50 mL intermittent infusion (COMPLETED) 10 mg, Intravenous, Administer over 30 Minutes, at 100 mL/hr, ONCE, On Tue05/23/24 at 1435, For 1 dose 1519 ($New Bag - Provider: Kassidy Morel RN) piperacillin-tazobactam (ZOSYN) 2.25 g vial to attach to NS 100 ml bag (COMPLETED) STAT, 2.25 g, Intravenous, ONCE, On Tue05/23/24 at 1350, For 1 dose, Lactated Ringer's solution is not compatible with piperacillin-tazobactam for injection., Indications: Skin and Soft Tissue Infection 1433 ($New Bag - Provider: Kassidy Morel RN)1518 (Stopped - Provider: Kassidy Morel RN) piperacillin-tazobactam (ZOSYN) 2.25 g vial to attach to NS 100 ml bag Routine, 2.25 g, Intravenous, EVERY 8 HOURS, First dose on Tue05/23/24 at 2200, Dose adjusted per renal dosing policy. Estimated CrCl = 10-29 mL/min. Lactated Ringer's solution is not compatible with piperacillin-tazobactam for injection., Indications: Skin and Soft Tissue Infection 2324 ($New Bag - Provider: Jazmín Alcantar RN) 0552 ($New Bag - Provider: Jazmín Alcantar RN)1420 ($New Bag - Provider: Jessica Paz RN)2204 ($New Bag - Provider: Marce Leon RN) prothrombin 4 factor complex concentrate (KCENTRA) infusion 4,156 Units (COMPLETED) 4,156 Units, Intravenous, ONCE, On Tue05/23/24 at 1445, For 1 dose, (Acceptable for pharmacist to round to vial size if within 10% of ordered dose.) Administer though a dedicated line. Infuse intravenously at a rate no greater than 504 mL/hr (8.4 mL/minute) Do not exceed 100 kg (patient weight) when calculating prothrombin 4 factor complex concentrate (KCENTRA) dose. 1455 ($Given - Provider: Kassidy Morel RN) sennosides (SENOKOT) tablet 2 tablet 2 tablet, Oral, EVERY OTHER DAY, First dose on Tue05/24/24 at 0900, Hold for loose stools. 0902 ($Given - Provider: Jessica Paz RN) sodium chloride (PF) 0.9% PF flush 3 mL 3 mL, Intracatheter, EVERY 8 HOURS, First dose on Tue05/23/24 at 2100, to lock peripheral IV dormant line 2154 ($Given - Provider: Jazmín Alcantar RN) 0551 ($Given - Provider: Jazmín Alcantar, LINDA)1240 ($Given - Provider: Jessica Paz, LINDA)2106 ($Given - Provider: Marce Leon RN) sodium chloride 0.9% BOLUS 1,000 mL (COMPLETED) Intravenous, 1,000 mL, ONCE, at 1,000 mL/hr, Administer over 1 Hours, On Tue05/23/24 at 1340, For 1 dose 1355 ($New Bag - Provider: Kassidy Morel RN)1518 (Stopped - Provider: Kassidy Morel RN) vancomycin (VANCOCIN) 1,750 mg in 0.9% NaCl 500 mL intermittent infusion (COMPLETED) Routine, 1,750 mg (rounded from 1,678 mg = 20 mg/kg ? 83.9 kg), Intravenous, ONCE, On Tue05/23/24 at 1400, For 1 dose, Infuse doses less than 1,250 mg over 1 hour. Infuse doses between 1,250 mg and less than 1,750 mg over 90 minutes. Infuse doses 1,750 mg and above over 2 hours., Indications: Skin and Soft Tissue Infection 1434 ($New Bag - Provider: Kassidy Morel, LINDA) vancomycin place watson - receiving intermittent dosing Routine, 1 each, Intravenous, SEE ADMIN INSTRUCTIONS, Starting on Tue05/24/24 at 0818, This order is meant to notify providers that this patient is receiving intermittent doses of vancomycin. Do NOT chart on this order., Indications: Skin and Soft Tissue Infection vitamin B complex with vitamin C (STRESS TAB) tablet 1 tablet 1 tablet, Oral, EVERY EVENING, First dose on Tue05/25/24 at 2000 Continuous Medication Order 05/22/2024 05/23/2024 05/24/2024 sodium chloride 0.9 % infusion (CANCELED) at 10 mL/hr, Intravenous, CONTINUOUS, IF patient on dialysis., Pre-procedure, Starting on Tue05/23/24 at 1705, Until Tue05/23/24 at 1913 1755 ($New Bag - Provider: Fauzia Ramos APRN CRNA)1913 (Anesthesia Volume Adjustment - Provider: Donnell Ramos APRN CRNA) PRN Medication Order 05/22/2024 05/23/2024 05/24/2024 calcium carbonate (TUMS) chewable tablet 1,000 mg 1,000 mg, Oral, 4 TIMES DAILY PRN, heartburn, Starting on Tue05/23/24 at 2046 dextrose 50 % injection 25-50 mL(Linked Group 1) 25-50 mL, Intravenous, EVERY 15 MIN PRN, low blood sugar, Administer over 1-5 Minutes, Starting on Tue05/23/24 at 2046, Use if have IV access, BG less than 70 mg/dL and meet dose criteria below: Dose if conscious and alert (or disorientated) and NPO = 25 mL Dose if unconscious / not alert = 50 mL Give first dose for initial blood glucose less than 70 mg/dL. If blood glucose at 15 minute recheck is less than or equal to 80 mg/dL continue to administer carbohydrate treatment every 15 minutes, as needed, based on blood glucose and assessment parameters until blood glucose level is above 80 mg/dL x 2 consecutive 15 minute checks. glucagon injection 1 mg(Linked Group 1) 1 mg, Subcutaneous, EVERY 15 MIN PRN, low blood sugar, May repeat x 1 only, Starting on Tue05/23/24 at 2046, May give SQ or IM. ONLY use glucagon IF patient has NO IV access AND is UNABLE to swallow AND blood glucose is LESS than or EQUAL to 50 mg/dL. glucose gel 15-30 g(Linked Group 1) 15-30 g, Oral, EVERY 15 MIN PRN, low blood sugar, Starting on Tue05/23/24 at 2046, Give first dose for initial blood glucose less than 70 mg/dL per the dosing instructions below. If blood glucose at 15 minute rechecks is still less than or equal to 80 mg/dL, continue to administer doses per blood glucose parameters every 15 minutes, as needed, until blood glucose level is at or above 80 mg/dL x 2 consecutive 15 minute checks. Dosing Instructions: ~If patient is conscious and able to swallow and NO enteral tube For initial BG 51-69mg/dL OR 15 minute recheck BG 51- 80 mg/dL - give 15 g For BG less than or equal to 50 mg/dL - give 30 g ~ If Enteral tube For initial BG 51-69mg/dL OR 15 minute recheck BG 51- 80 mg/dL - give apple juice 120 mL (4 oz or 15 g of CHO) via enteral tube For BG less than or equal to 50 mg/dL - Give apple juice 240 mL (8 oz or 30 g of CHO) via enteral tube ~Oral gel is preferable for conscious and able to swallow patient. ~IF gel unavailable or patient refuses may provide apple juice per Enteral tube dosing instructions. Document juice on I and O flowsheet. HOLD: warfarin (COUMADIN) therapy Medication(s) to hold: warfarin (COUMADIN), Parameter for hold (doses,days,conditions) : HOLD until MD places a RESUME medication order, HOLD, Starting on Tue05/23/24 at 1432, Until Discontinued, Hold warfarin (COUMADIN) HYDROmorphone (DILAUDID) injection 0.2-0.4 mg 0.2-0.4 mg, Intravenous, EVERY 2 HOURS PRN, moderate pain, Starting on Tue05/23/24 at 2047 0922 ($Given - Provider: Jessica Paz RN) lidocaine (LMX4) cream Topical, EVERY 1 HOUR PRN, pain, with VAD insertion, Starting on Tue05/23/24 at 2047, Apply at least 30 minutes prior to [...] mild pain with VAD insertion, Starting on Tue05/23/24 at 7, MAX dose 1 mL subcutaneous OR intradermal along the side of the vein in divided doses as needed for VAD insertion. Do NOT give if patient has a history of allergy to any local anesthetic or any anabell product. Do NOT use both lidocaine intradermal/subcutaneous injection and the lidocaine cream on the same site. naloxone (NARCAN) injection 0.2 mg(Linked Group 2) 0.2 mg, Intravenous, EVERY 2 MIN PRN, opioid reversal, Starting on Tue05/23/24 at 2100, Administer intravenous route when available and notify [...] have not improved after 4 naloxone doses. naloxone (NARCAN) injection 0.2 mg(Linked Group 2) 0.2 mg, Intramuscular, EVERY 2 MIN PRN, opioid reversal, Starting on Tue05/23/24 at 2100, Administer intramuscular if an intravenous route is [...] have not improved after 4 naloxone doses. naloxone (NARCAN) injection 0.4 mg(Linked Group 2) 0.4 mg, Intravenous, EVERY 2 MIN PRN, opioid reversal, Starting on Tue05/23/24 at 2100, Administer intravenous route when available and notify [...] have not improved after 4 naloxone doses. naloxone (NARCAN) injection 0.4 mg(Linked Group 2) 0.4 mg, Intramuscular, EVERY 2 MIN PRN, opioid reversal, Starting on Tue05/23/24 at 2100, Administer intramuscular if an intravenous route is [...] have not improved after 4 naloxone doses. ondansetron (ZOFRAN) injection 4 mg 4 mg, Intravenous, EVERY 6 HOURS PRN, nausea, vomiting, Administer over 2-5 Minutes, Starting on [place] 05/24/24 at 1412 1458 ($Given - Provider: Jesscia A Mbangong, RN) senna-docusate (SENOKOT-S/PERICOLACE) 8.6-50 MG per tablet 1 tablet(Linked Group 3) 1 tablet, Oral, 2 TIMES DAILY PRN, constipation, Starting on Tue05/23/24 at 2046, If no bowel movement in 24 hours, [...] 8.6-50 MG per tablet 2 tablet(Linked Group 3) 2 tablet, Oral, 2 TIMES DAILY PRN, constipation, Starting on Tue05/23/24 at 2046, IF more than 1 constipation PRN medication [...] or to lock dormant line, Starting on Tue05/23/24 at 2046 sodium chloride 0.9 % bag [address] scan flush use As instructed, 100 mL, EVERY 1 HOUR PRN, line flush, Starting on Tue05/23/24 at 1412, For 12 hours, This entry is for use by Radiology to intermittently used as a flush in patients receiving a CT scan. 1417 ($Given - Provider: Elie Vann)1714 (Auto Hold - Provider: Orders Generic Provider - Reason: Transfer to a procedural area)2045 (Unhold - Provider: Orders Generic Provider) sodium chloride 0.9% (bottle) irrigation (CANCELED) PRN, Starting on Tue05/23/24 at 1855, Intra-procedure 1855 ($Given - Provider: Lizandro Barron MD) Linked Groups Order Group 1: glucose gel 15-30 gJump to med 15-30 g, Oral, EVERY 15 MIN PRN, low blood sugar, Starting on Tue05/23/24 at 7, Give first dose for initial blood glucose less than 70 mg/dL per the dosing instructions below. If blood glucose at 15 minute rechecks is still less than or equal to 80 mg/dL, continue to administer doses per blood glucose parameters every 15 minutes, as needed, until blood glucose level is at or above 80 mg/dL x 2 consecutive 15 minute checks. Dosing Instructions: ~If patient is conscious and able to swallow and NO enteral tube For initial BG 51-69mg/dL OR 15 minute recheck BG 51- 80 mg/dL - give 15 g For BG less than or equal to 50 mg/dL - give 30 g ~ If Enteral tube For initial BG 51-69mg/dL OR 15 minute recheck BG 51- 80 mg/dL - give apple juice 120 mL (4 oz or 15 g of CHO) via enteral tube For BG less than or equal to 50 mg/dL - Give apple juice 240 mL (8 oz or 30 g of CHO) via enteral tube ~Oral gel is preferable for conscious and able to swallow patient. ~IF gel unavailable or patient refuses may provide apple juice per Enteral tube dosing instructions. Document juice on I and O flowsheet. Or dextrose 50 % injection 25-50 mLJump to med 25-50 mL, Intravenous, EVERY 15 MIN PRN, low blood sugar, Administer over 1-5 Minutes, Starting on Tue05/23/24 at 2046, Use if have IV access, BG less than 70 mg/dL and meet dose criteria below: Dose if conscious and alert (or disorientated) and NPO = 25 mL Dose if unconscious / not alert = 50 mL Give first dose for initial blood glucose less than 70 mg/dL. If blood glucose at 15 minute recheck is less than or equal to 80 mg/dL continue to administer carbohydrate treatment every 15 minutes, as needed, based on blood glucose and assessment parameters until blood glucose level is above 80 mg/dL x 2 consecutive 15 minute checks. Or glucagon injection 1 mgJump to med 1 mg, Subcutaneous, EVERY 15 MIN PRN, low blood sugar, May repeat x 1 only, Starting on Tue05/23/24 at 2047, May give SQ or IM. ONLY use glucagon IF patient has NO IV access AND is UNABLE to swallow AND blood glucose is LESS than or EQUAL to 50 mg/dL. Group 2: naloxone (NARCAN) injection 0.2 mgJump to med 0.2 mg, Intravenous, EVERY 2 MIN PRN, opioid reversal, Starting on Tue05/23/24 at 2100, Administer intravenous route when available and notify [...] have not improved after 4 naloxone doses. Or naloxone (NARCAN) injection 0.4 mgJump to med 0.4 mg, Intravenous, EVERY 2 MIN PRN, opioid reversal, Starting on Tue05/23/24 at 2100, Administer intravenous route when available and notify [...] have not improved after 4 naloxone doses. Or naloxone (NARCAN) injection 0.2 mgJump to med 0.2 mg, Intramuscular, EVERY 2 MIN PRN, opioid reversal, Starting on Tue05/23/24 at 2100, Administer intramuscular if an intravenous route is [...] have not improved after 4 naloxone doses. Or naloxone (NARCAN) injection 0.4 mgJump to med 0.4 mg, Intramuscular, EVERY 2 MIN PRN, opioid reversal, Starting on Tue05/23/24 at 2100, Administer intramuscular if an intravenous route is [...] have not improved after 4 naloxone doses. Group 3: senna-docusate (SENOKOT-S/PERICOLACE) 8.6-50 MG per tablet 1 tabletJump to med 1 tablet, Oral, 2 TIMES DAILY PRN, constipation, Starting on Tue05/23/24 at 2046, If no bowel movement in 24 hours, [...] 2 TIMES DAILY PRN, constipation, Starting on Tue05/23/24 at 2046, IF more than 1 constipation PRN medication is ordered, administer step-jane as indicated, moving to the next step ONLY if prior step ineffective. Step 1: senna-docusate (SENOKOT-S; PERICOLACE) OR bisacodyl (DULCOLAX) EC tablet Step 2: polyethylene glycol (MIRALAX/GLYCOLAX) Step 3: bisacodyl (DULCOLAX) suppository Step 4: enema Hold for loose stools. documented in this encounter Care Teams Treasury Agent Relationship Specialty Start Date End Date Preet Huff PCP - General 06/24/11 documented as of this encounter
--- OUTSIDE RECORDS SUMMARY | 2024-05-24 23:44 | XMS_ITS | Encounter Summary ---
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 findings as discussed above. Findings were discussed with Dr. Kenna Coe at 2:35 PM. MIKE SANTANA MD SYSTEM ID: [id number] Vi Coe DO IMG CT ORDERABLE S * Adult Type and Screen (05/23/2024 2:07 PM CDT) ABO/RH(D) O POS 05/23/2024 1:37 PM CDT RH BLOOD BANK Antibody Screen Negative Negative 05/23/2024 1:37 PM CDT RH BLOOD BANK SPECIMEN EXPIRATION DATE [id number] 05/23/2024 1:37 PM CDT RH BLOOD BANK Blood BLOOD SPECIMEN / Unknown Venipuncture / Unknown 05/23/2024 2:07 PM CDT 05/23/2024 2:10 PM CDT Vi Coe DO LAB - BLOOD BANK TEST ORDER BLOOD BANK [address] [place] [address], [facility] * (ABNORMAL) CBC with platelets and differential (05/23/2024 1:50 PM CDT) WBC Count 7.8 4.0 - 11.0 10e3/uL [...] PM CDT 05/23/2024 1:55 PM CDT Vi Wongs Coe DO LAB - BLOOD [facility] CINDYMIRELLA [facility]AT[facility] [address] [facility], no room number[facility] [address] * Lactic acid whole blood (05/23/2024 1:50 PM CDT) Lactic Acid 0.9 0.7 - 2.0 mmol/L 05/23/2024 1:57 PM CDT RH LABORATORY Blood BLOOD SPECIMEN / Unknown Venipuncture / Unknown 05/23/2024 1:50 PM CDT 05/23/2024 1:54 PM CDT Vi [place] Coe DO LAB - BLOOD BERKELEYE MYRANDA [facility] Lab [address] Lab (1st floor, no room number) [address] * (ABNORMAL) Comprehensive metabolic panel (05/23/2024 1:50 [...] - 107 mmol/L 05/23/2024 2:21 PM CDT LABORATORY Glucose 175(H) 70 - 99 mg/dL 05/23/2024 2:21 PM CDT RH LABORATORY Alkaline Phosphatase 72 40 - 150 U/L 05/23/2024 2:21 PM CDT RH LABORATORY AST 21 0 - 45 U/L 05/23/2024 2:21 PM CDT RH LABORATORY ALT 26 0 - 70 U/L 05/23/2024 2:21 PM CDT LABORATORY Protein Total 7.1 6.4 - 8.3 g/dL 05/23/2024 2:21 PM CDT LABORATORY Albumin 3.2(L) 3.5 - 5.2 g/dL 05/23/2024 2:21 PM CDT LABORATORY Bilirubin Total 0.3 <=1.2 mg/dL 05/23/2024 2:21 PM CDT LABORATORY Blood BLOOD SPECIMEN / Unknown Venipuncture / Unknown 05/23/2024 1:50 PM CDT 05/23/2024 1:55 PM CDT Vi Coe DO LAB - BLOOD ROVERTO WHITMORE LABORATORY [facility] Lab [address] Lab (1st floor, no room number) [place] [address], [facility] * (ABNORMAL) INR (05/23/2024 1:50 PM CDT) INR >10.00(HH) 0.85 - 1.15 05/23/2024 2:30 PM CDT LABORATORY Blood BLOOD SPECIMEN / Unknown Venipuncture / Unknown 05/23/2024 1:50 PM CDT 05/23/2024 1:55 PM CDT Vi Coe DO LAB - BLOOD ORDE MYRANDA [facility] Lab [address] Lab (1st floor, no room number) [place] [address], [facility] documented in this encounter Visit Diagnoses [...] TIMES DAILY BEFORE MEALS, First dose on Padmaja 05/24/24 at 1200, Correction Scale - MEDIUM INSULIN [...] Units, Subcutaneous, AT BEDTIME, First dose on [facility] 05/24/24 at 2200, MEDIUM INSULIN RESISTANCE DOSING Do [...] mg, Oral, EVERY MORNING, First dose on Padmaja 05/24/24 at 0900, Tablets can be crushed and [...] DAILY PRN, constipation, Starting on Tue05/23/24 at 204, IF more than 1 constipation PRN medication [...] MAR Action Action Date Dose Rate Site clindamycin (CLEOCIN) 900 mg in 50 mL D5W intermittent infusion STAT, 900 mg, Intravenous, ONCE, On Tue05/23/24 at 1340, For 1 dose, Indications: Skin and Soft Tissue Infection $New Bag 05/23/2024 2:00 PM CDT 900 mg 100 mL/hr iopamidol (ISOVUE-370) solution 500 mL 500 mL, Intravenous, ONCE, On Tue05/23/24 at 1415, For 1 dose $Given 05/23/2024 2:17 PM CDT 93 mLs phytonadione (AQUAMEPHYTON) 10 MG/ML 10 mg in sodium chloride 0.9 % 50 mL intermittent infusion 10 mg, Intravenous, Administer over 30 Minutes, at 100 mL/hr, ONCE, On Tue05/23/24 at 1435, For 1 dose $New Bag 05/23/2024 3:19 PM CDT 10 mg 100 mL/hr piperacillin-tazobactam (ZOSYN) 2.25 g vial to attach to NS 100 ml bag STAT, 2.25 g, Intravenous, ONCE, On Tue05/23/24 at 1350, For 1 dose, Lactated Ringer's solution is not compatible with piperacillin-tazobactam for injection., Indications: Skin and Soft Tissue Infection $New Bag 05/23/2024 2:33 PM CDT 2.25 g prothrombin 4 factor complex concentrate (KCENTRA) infusion 4,156 Units 4,156 Units, Intravenous, ONCE, On Tue05/23/24 at 1445, For 1 dose, (Acceptable for pharmacist to round to vial size if within 10% of ordered dose.) Administer though a dedicated line. Infuse intravenously at a rate no greater than 504 mL/hr (8.4 mL/minute) Do not exceed 100 kg (patient weight) when calculating prothrombin 4 factor complex concentrate (KCENTRA) dose. $Given 05/23/2024 2:55 PM CDT 4,156 Units sodium chloride 0.9 % bag [address] scan flush use As instructed, 100 mL, EVERY 1 HOUR PRN, line flush, Starting on Tue05/23/24 at 1412, For 12 hours, This entry is for use by Radiology to intermittently used as a flush in patients receiving a CT scan. $Given 05/23/2024 2:17 PM CDT 100 mLs sodium chloride 0.9% BOLUS 1,000 mL Intravenous, 1,000 mL, ONCE, at 1,000 mL/hr, Administer over 1 Hours, On Tue05/23/24 at 1340, For 1 dose $New Bag 05/23/2024 1:55 PM CDT 1,000 mLs 1000 mL/hr vancomycin (VANCOCIN) 1,750 mg in 0.9% NaCl 500 mL intermittent infusion Routine, 1,750 mg (rounded from 1,678 mg = 20 mg/kg ? 83.9 kg), Intravenous, ONCE, On Tue05/23/24 at 1400, For 1 dose, Infuse doses less than 1,250 mg over 1 hour. Infuse doses between 1,250 mg and less than 1,750 mg over 90 minutes. Infuse doses 1,750 mg and above over 2 hours., Indications: Skin and Soft Tissue Infection $New Bag 05/23/2024 2:34 PM CDT 1,750 mg 250 mL/hr documented in this encounter Active and [...] be crushed and given via enteral route. 0902 ($Given - Provider: Jessica Paz RN) pantoprazole (PROTONIX) EC tablet 40 mg 40 mg, Oral, EVERY MORNING BEFORE BREAKFAST, First dose on Padmaja 05/24/24 at 0800, DO NOT CRUSH. 0902 ($Given - Provider: Jessica Paz, LINDA) phytonadione (AQUAMEPHYTON) 10 MG/ML 10 mg in sodium chloride 0.9 % 50 mL intermittent infusion (COMPLETED) 10 mg, Intravenous, Administer over 30 Minutes, at 100 mL/hr, ONCE, On Tue05/23/24 at 1435, For 1 dose 1519 ($New Bag - Provider: Kassidy Morel, LINDA) piperacillin-tazobactam (ZOSYN) 2.25 g vial to attach [...] Alcantar RN)1420 ($New Bag - Provider: Jessica Paz, LINDA)2204 ($New Bag - Provider: Marce Leon RN) [...] Alcantar RN) 0551 ($Given - Provider: Jazmín Alcantar RN)1240 ($Given - Provider: Jessica Paz, LINDA)2106 ($Given [...] Infection 1434 ($New Bag - Provider: Kassidy Morel RN) vancomycin place watson - receiving intermittent dosing Routine, 1 each, Intravenous, SEE ADMIN INSTRUCTIONS, Starting on Padmaja 05/24/24 at 0818, This order is meant to [...] VAD insertion, Starting on Tue05/23/24 at 2047, MAX dose 1 mL subcutaneous OR intradermal [...] Minutes, Starting on Padmaja 05/24/24 at 1412 1458 ($Given - Provider: Jessica Paz RN) senna-docusate (SENOKOT-S/PERICOLACE) 8.6-50 MG per tablet [...] CT scan. 1417 ($Given - Provider: Elie Vann)1713 (Auto Hold - Provider: Orders Generic Provider [...] stools. documented in this encounter Care Teams [employer] Member Other Ranks Relationship Specialty Start Date End Date Preet Huff PCP - General 06/24/11 documented as of this encounter
--- OUTSIDE RECORDS SUMMARY | 2024-05-24 23:44 | XMS_ITS | Encounter Summary ---
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
--- OUTSIDE RECORDS SUMMARY | 2024-05-24 23:45 | XMS_ITS | Encounter Summary ---
Author Organization [facility] Address [address] [place] [address] Care Team Providers Care Cap Lining Machine Operator Name Role Phone Refugio Cornell Hans Primary Care Provider [phone] Reason for Visit * Reason Comments Generalized Weakness * Auth/Cert (Routine) Specialty Diagnoses / Procedures Referred By Contac t Referred To Contact Med Surg Diagnoses Black stool Anemia, unspecified type Anemia, unspecified type Black stool 5 Medical Surgical [address] [place] [address] Referral ID Status Reason Start Date Expiration Date Visits Re quested Visits Authorized [id number] 1 1 Encounter Details Date Type Department Care Team ([facility] Contact Info) Description 03/02/2024 1:54 PM CDT - 03/12/2024 4:36 PM CDT Hospital Encounter 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 Sexual Orientation Not on file documented as of this encounter Last Filed Vital Signs Vital Sign Reading Time Taken Comments Blood Pressure 149/50 03/12/2024 1:57 PM CDT Pulse 87 03/12/2024 2:02 PM CDT Temperature 36.7 ??C (98.1 ??F) 03/12/2024 1 2:54 PM CDT Respiratory Rate 15 03/12/2024 12:5 4 PM CDT Oxygen Saturation 100% 03/12/2024 12: 54 PM CDT Inhaled Oxygen Concentration - - Weight 84.3 kg (185 lb 13.6 oz) 03/05/2024 5:30 PM CDT Height - - Body Mass Index 31.9 02/24/2024 1:53 PM CDT documented in this encounter Discharge Summaries * Nicolasa Luke DO - 03/12/2024 9:23 AM CDT Images from the original note were not included. [facility] Hospitalist Discharge Summary Date of Admission: 03/02/2024 Date of Discharge: 03/12/2024 Discharging Provider: Nicolasa Luke DO Discharge Service: Hospitalist Service Discharge Diagnoses Melena Small Esophageal Varices Acute Blood Loss Anemia Anemia of Chronic Kidney Disease Moderate asymptomatic hyponatremia, suspect hypervolemic hyponatremia ESRD on HD DM2 with hypoglycemia Hx DVT on chronic warfarin Lytic lesion of L5 RUE edema Superficial vein thrombosis in cephalic vein Cognitive impairment Hx CVA Legally blind HTN SHIRLEY with CPAP Aortic Stenosis Obesity Clinically Significant Risk Factors # Obesity: Estimated body mass index is 31.9 kg/m?? as calculated from the following: Height as of 02/24/24: 1.626 m (5' 4). Weight as of this encounter: 84.3 kg (185 lb 13.6 oz). Follow-ups Needed After Discharge Discharge Disposition Discharged to home Condition at discharge: Stable Hospital Course Herminio Ramon Kayleigh is a 58 year old male with a history of cognitive impairment, ESRD on HD (MWF),history of DVT on warfarin, type 2 diabetes mellitus, legally blind, history of CVA, hypertension, hyperlipidemia, SHIRLEY with CPAP, obesity admitted on 03/02/2024 with melena. Of note, the patient was re cently hospitalized at [facility] from 02/23 to 02/25 for the treatment of acute chronic anemia with melanotic stools. On 02/24, the patient had an EGD showing small esophageal varices. Inthe emergency department this admission, his initial hemoglobin was 6.3. EGD on 03/06 showed grade 1esophageal varices and erythematous mucosa in the greater curvature. Colonoscopy was attempted on 03/08 (poor prep was noted) and one 3 mm polyp was biopsied in the rectum but otherwise no bleeding site was found. He required several RBC transfusions but has since been stable for several days. Plan at discharge: - PPI PO BID; GI recommending repeat colonoscopy in 7 years, if GI losses thought to continue to becontributing to anemia, could consider outpatient pill camera study - continue normal HD schedule, last dialyzed here 03/12/2024 in hospital. bmp at dialysis - Resumed warfarin on 03/10 - Lytic Lesion of L5 noted on recent CT abd pelv showing focal lytic lesion with soft tissue thickening possibly representing a Schmorl node. Recommend outpatient lumbar MRI with PCP. This was discussed with the patient's Aunt via phone. We discussed that sometimes this can indicate cancer. She expressed understanding. Consultations This Hospital Stay GASTROENTEROLOGY IP CONSULT CARE MANAGEMENT / SOCIAL WORK IP CONSULT NEPHROLOGY IP CONSULT VASCULAR ACCESS ADULT IP CONSULT PHARMACY TO DOSE WARFARIN PHARMACY TO DOSE WARFARIN Code Status Full Code Time Spent on this Encounter Nicolasa Gentile DO, personally saw the patient today and spent greater than 30 minutes discharging this patient. Nicolasa Luke DO [place] [address] MEDICAL SURGICAL [address] [facility] [address] Physical Exam Vital Signs: Temp: 98.4 ??F (36.9 ??C) Temp src: Oral BP: (!) 152/71 Pulse: 87 Resp: 14 SpO2: 98 % O2 Device: None (Room air) Weight: 185 lbs 13.56 oz Primary Care Physician CORNELL BUTT Discharge Orders No discharge procedures on file. Significant Results and Procedures Most Recent 3 CBC's: Recent Labs Lab Test 03/12/24 0606 03/11/24 1810 03/11/24 0703 03/09/24 1416 03/09/24 0912 03/07/24 0104 03/06/24 1628 WBC -- -- 9.9 -- 10.1 -- 7.4 HGB 8.1* 8.8* 7.8* < > 7.5* < > 7.4* 7.4* MCV -- -- 89 -- 88 -- 88 PLT -- -- 154 -- 159 -- 145* < > = values in this interval not displayed. Most Recent 3 BMP's: Recent Labs Lab Test 03/12/24 0751 03/12/24 0606 03/12/24 0155 03/11/24 0736 03/11/24 0703 03/10/24 0832 03/10/24 0746 NA -- 123* -- -- 126* -- 124* POTASSIUM -- 4.9 -- -- 4.8 -- 4.6 CHLORIDE -- 87* -- -- 89* -- 89* CO2 -- 23 -- -- 26 -- 25 BUN -- 48.4* -- -- 36.6* -- 29.1* CR -- 7.98* -- -- 6.71* -- 5.54* ANIONGAP -- 13 -- -- 11 -- 10 JON -- 8.3* -- -- 8.0* -- 7.4* GLC 92 77 77 107* < > 88 < > 95 < > = values in this interval not displayed. Most Recent INR's and Anticoagulation Dosing History: Anticoagulation Dose History More data exists Latest Ref Rng & Units 03/06/2024 03/07/2024 03/08/2024 03/09/2024 03/10/2024 03/11/2024 03/12/2024 Recent Dosing and Labs warfarin ANTICOAGULANT (COUMADIN) 5 MG tablet - - - - - 5 mg, $Given Providing now at patient request 5 mg, $Given - INR 0.85 - 1.15 1.51 1.28 1.18 1.13 1.18 1.11 1.20 Most Recent Hemoglobin A1c: Recent Labs Lab Test 03/02/24 1356 A1C 5.5 Most Recent 6 glucoses: Recent Labs Lab Test 03/12/24 0751 03/12/24 0606 03/12/24 0155 03/11/24 2111 03/11/24 1731 03/11/24 1147 GLC 92 77 77 107* 132* 144* 117* Most Recent Anemia Panel: Recent Labs Lab Test 03/12/24 0606 03/11/24 1810 03/11/24 0703 03/09/24 1416 03/09/24 0912 03/02/24 1356 02/26/24 0610 WBC -- -- 9.9 -- 10.1 < > 6.5 HGB 8.1* < > 7.8* < > 7.5* < > 8.4* HCT -- -- 23.8* -- 22.5* < > 25.4* MCV -- -- 89 -- 88 < > 90 PLT -- -- 154 -- 159 < > 103* IRON -- -- -- -- -- -- 38* IRONSAT -- -- -- -- -- -- 28 RETICABSCT -- -- -- -- 0.072 -- -- RETP -- -- -- -- 2.8* -- -- FEB -- -- -- -- -- -- 137* NANNETTE -- -- -- -- -- -- 1,463* < > = values in this interval not displayed. , Results for orders placed or performed during the hospital encounter of 03/02/24 US Upper Extremity Venous Duplex Right Narrative EXAM: US UPPER EXTREMITY VENOUS DUPLEX RIGHT LOCATION: [facility] DATE: 03/07/2024 INDICATION: Swelling, looking for DVT [...] Vein from the proximal through distal forearm. Impression IMPRESSION: 1. No deep venous thrombosis in the right upper extremity. 2. Superficial venous thrombus within the right cephalic vein from the proximal to distal forearm. XR Chest Port 1 View Narrative EXAM: XR CHEST PORT 1 VIEW LOCATION: [facility] DATE: 03/11/2024 INDICATION: Shortness of breath COMPARISON: None. Impression IMPRESSION: Normal heart size and pulmonary vascularity. Lungs clear. No pneumothorax. Minimal fluid or thickening along the right fissure. Discharge Medications Current Discharge Medication List START taking these medications Details blood glucose (NO BRAND SPECIFIED) test strip Use to test blood sugar 4 times daily or as directed. Qty: 100 strip, Refills: 6 Comments: To accompany: glucometer per insurance. Associated Diagnoses: Hypoglycemia blood glucose monitoring (NO BRAND SPECIFIED) meter device kit Use to test blood sugar 4 times daily or as directed. Qty: 1 kit, Refills: 0 Comments: Preferred blood glucose meter OR supplies to accompany: glucometer per insurance Associated Diagnoses: Hypoglycemia thin (NO BRAND SPECIFIED) lancets Use with lanceting device. Qty: 200 each, Refills: 6 Comments: To accompany: per insurance. Associated Diagnoses: Hypoglycemia CONTINUE these medications which have NOT CHANGED Details amLODIPine (NORVASC) 5 MG tablet Take 5 mg by mouth daily atorvastatin (LIPITOR) 20 MG tablet Take 1 tablet (20 mg) by mouth every evening Qty: 30 tablet, Refills: 3 Associated Diagnoses: Mixed hyperlipidemia B Yuifdiz-P-Taegf Acid (WESCAPS PO) Take 1 capsule by mouth every evening !! calcium acetate (PHOSLO) 667 MG CAPS capsule Take 1 capsule (667 mg)by mouth 3 times daily with meals !! calcium acetate (PHOSLO) 667 MG CAPS capsule Take 1 capsule (667 mg) once daily with a snack metoprolol tartrate (LOPRESSOR) 100 MG tablet Take 100 mg by mouth every morning sennosides (SENOKOT) 8.6 MG tablet Take 2 tablets by mouth every other day warfarin ANTICOAGULANT (COUMADIN) 5 MG tablet Take 1 tablet (5 mg) by mouth Tuesday through Tuesday !! - Potential duplicate medications found. Please discuss with provider. Allergies Allergies Allergen Reactions Dihydroxyaluminum Aminoacetate Nausea GI bleeding Aspirin GI Disturbance and Rash PN: LW Reaction: unknown documented in this encounter Discharge Instructions * Attachments The following attachments cannot be sent through Care Everywhere. * Colon Polyps (Iraqi) documented in this encounter Medications at Time of Discharge Medication Sig Dispensed Refills Start Date End Date B Cgwythy-K-Momeb Acid (WESCAPS PO) Take 1 capsule by mouth every evening calcium acetate (PHOSLO) 667 MG CAPS capsule Take 1 capsule (667 mg)by mouth 3 times daily with meals calcium acetate (PHOSLO) 667 MG CAPS capsule Take 1 capsule (667 mg) once daily with a snack metoprolol tartrate (LOPRESSOR) 100 MG tablet Take 100 mg by mouth every evening sennosides (SENOKOT) 8.6 MG tablet Take 2 tablets by mouth every other day warfarin ANTICOAGULANT (COUMADIN) 5 MG tablet Take 1 tablet (5 mg) by mouth Tuesday through Tuesday, no dose on Sat and Sun amLODIPine (NORVASC) 5 MG tablet Take 5 mg by mouth daily 05/23/2024 atorvastatin (LIPITOR) 20 MG tabletIndications:Mixed hyperlipidemia Take 1 tablet (20 mg) by mouth every evening 30 tablet 3 12/19/2017 05/23/2024 blood glucose (NO BRAND SPECIFIED) test stripIndications:Hypoglyc emia Use to test blood sugar 4 times daily or as directed. 100 strip 6 03/04/2024 05/23/2024 blood glucose monitoring (NO BRAND SPECIFIED) meter device kitIndications:Hypoglycem ia Use to test blood sugar 4 times daily or as directed. 1 kit 03/04/2024 05/23/2024 pantoprazole (PROTONIX) 40 MG EC tabletIndications:Gastroi ntestinal hemorrhage, unspecified gastrointestinal hemorrhage type Take 1 tablet (40 mg) by mouth 2 times daily (before meals) 60 tablet 03/12/2024 05/23/2024 thin (NO BRAND SPECIFIED) lancetsIndications:Hypogl ycemia Use with lanceting device. 200 each 6 03/04/2024 05/23/2024 documented as of this encounter Progress Notes * Lynne Cárdenas RN - 03/12/2024 3:18 PM CDT Care Management Discharge Note Discharge Date: 03/12/2024 Discharge Disposition: Home Discharge Services: [employer] Discharge DME: None Discharge Transportation: agency, other (see comments) ([place] [facility]) Private pay costs discussed: transportation costs Education Provided on the Discharge Plan: yes Persons Notified of Discharge Plans: [facility] Patient/Family in Agreement with the Plan: yes Handoff Referral Completed: No Additional Information: Medically ready for discharge home today with mother and Aunt. Contacted [facility] to confirm that transportation needed to be set up. She stated they use [facility] for his dialysis appointments. Called [facility] and they are unable to provide transportation on short notice and they would not have openings today. Discussed with patients Aunt and she is agreeable to having set up [facility] transport and is aware of the potential cost if insurance does not cover. Contacted [facility] and transport set up for [phone]. Aunt will be at home to accept and she confirms a ramp in the rear of the home. Lynne Cárdenas RN BSN OCN Filing Machine Operator [facility] [phone] * Lynne Cárdenas RN - 03/12/2024 1:41 PM CDT Care Management Discharge Note Discharge Date: 03/12/2024 Discharge Disposition: Home Discharge Services: [facility] [employer] Discharge DME: None Discharge Transportation: agency, other (see comments) ([place] [facility]) Private pay costs discussed: Not applicable Does the patient's insurance plan have a 3 day qualifying hospital stay waiver? Yes Which insurance plan 3 day waiver is available? Alternative insurance waiver Will the waiver be used for post-acute placement? No PAS Confirmation Code: Patient/family educated on Medicare website which has current facility and service quality ratings: Education Provided on the Discharge Plan: Persons Notified of Discharge Plans: patient and family Patient/Family in Agreement with the Plan: yes Handoff Referral Completed: No Additional Information: Medically ready for discharge home today. Attempted to call patients mother regarding discharge plan and discuss transportation to home. Unable to reach her or aunt who is patients [employer]NER. Left voice mail. Lynne Cárdenas RN BSN OCN Filing Machine Operator [facility] [phone] * Melissa Dewey RN - 03/12/2024 12:36 PM CDT Potassium Date Value Ref Range Status 03/12/2024 4.9 3.4 - 5.3 mmol/L Final 01/24/2018 4.3 3.4 - 5.3 mmol/L Final Hemoglobin Date Value Ref Range Status 03/12/2024 8.1 (L) 13.3 - 17.7 g/dL Final 01/24/2018 8.2 (L) 13.3 - 17.7 g/dL Final Creatinine Date Value Ref Range Status 03/12/2024 7.98 (H) 0.67 - 1.17 mg/dL Final 01/25/2019 9.17 (H) 0.66 - 1.25 mg/dL Final Urea Nitrogen Date Value Ref Range Status 03/12/2024 48.4 (H) 8.0 - 23.0 mg/dL Final 01/24/2018 78 (H) 7 - 30 mg/dL Final Sodium Date Value Ref Range Status 03/12/2024 123 (L) 135 - 145 mmol/L Final Comment: [...] Final INR Date Value Ref Range Status 03/12/2024 1.20 (H) 0.85 - 1.15 Final 03/18/2020 2.97 (H) 0.86 - 1.14 Final DIALYSIS PROCEDURE NOTE Hepatitis status of previous patient on machine log was checked and verified ok to use with this patients hepatitis status. Assessment and Interventions: Pt is blind. A & O to person and situation. VS WNL on RA. Pt denies SOB or pain. Length of HD: 3.5 hrs. K2 Bath Ca 2.5 Approximate Total Net Fluid removed: 3 L. A BFR of 450 ml/min was obtained via a Lt thigh AVF, using 15 gauge needles. Venous and arterial ports bulging. Aspirates and flushes easily. Bruit and thrill present at sites. No signs of infection noted. Needle Canulation Sites Held: 5/5 min. Total Blood Volume Processed (BVP): 84.5 L The treatment plan was discussed with Dr. Holman during the treatment. Total heparin received during the treatment: 0 units. Meds given: none Complications: none Person educated: procedure and diet restrictions per Renal diet. Pt agreeable to HD POC. ICEBOAT? Timeout performed pre-treatment I: Patient was identified using 2 identifiers C: Consent Signed Yes E: Equipment preventative maintenance is current and dialysis delivery system OK to use B: Latest Reference Range & Units 02/25/24 06:45 02/26/24 11:13 Hep B Surface Agn Nonreactive Nonreactive Hepatitis B Surface Antibody Instrument Value <8.5 m[IU]/mL >1,000.00 Hepatitis B Surface Antibody Reactive O: Dialysis orders present and complete prior to treatment A: Vascular access verified and assessed prior to treatment T: Treatment was performed at a clinically appropriate time ?: Patient was allowed to ask questions and address concerns prior to treatment Machine water alarm in place and functioning. Transducer pods intact and checked every 15min. Pt returned via bed. Chlorine/Chloramine water system checked every 4 hours. Outpatient Dialysis at [facility]. Patient repositioned every 2 hours during the treatment. Pre and Post HD report given to Fern Soliz RN regarding 3 L of fluid removed, last BP of 153/72, and patient pain rating of 0/10. Note to Nurse: Please remove patient dressing on AVF and AVG needle sites 24 hours after dialysis. If leaking occurs please apply a Band-Aid. Melissa Newton RN * Wojciech Holman MD - 03/12/2024 11:11 AM CDT Renal Medicine Inpatient Dialysis Note Herminio Victor Age: [age] year old Date of : 1965 Date of Admission: 03/02/2024 Hospital LOS: 10 Assessment/Plan: 58 y.o man with ESRD, HTN, DM and severe anemia. # ESRD: -MWF -L upper thigh AVF, 15 g -EDW 82 kg -3.5 hrs +heparin -Dr. Holman # Anemia: GIB? -s/p one unit prbc -Mircera with HD # hyperkalemia - Should improve with dialysis today. -Renal diet # Hyponatremia-worse with D10 drip. # DVT: on coumadin Continue MWF schedule Transfuse as indicated Interval History: Dialysis run parameters reviewed with district court bailiff at patient bedside. Seen on run Resting on run Left femoral AVG UF 3.5 ROS GENERAL: NAD, No fever,chills CV: NEGATIVE for chest pain, palpitations GI: NEGATIVE for abdominal pain, heartburn, nausea, vomiting or change in bowel pattern EXT: no change edema ROS otherwise negative Dialysis Parameters: Vitals were reviewed Patient Vitals for the past 8 hrs: BP Temp Temp src Pulse Resp SpO2 03/12/24 1100 (!) 154/70 -- -- 80 15 -- 03/12/24 1045 (!) 155/68 -- -- 79 11 100 % 03/12/24 1030 (!) 146/104 -- -- 80 12 100 % 03/12/24 1015 110/59 -- -- 77 13 -- 03/12/24 1000 131/65 -- -- 77 13 -- 03/12/24 0945 122/70 -- -- 78 13 100 % 03/12/24 0930 137/78 -- -- 84 13 100 % 03/12/24 0915 (!) 166/80 -- -- 83 12 98 % 03/12/24 0900 (!) 147/68 -- -- 89 12 100 % 03/12/24 0845 (!) 152/71 98.4 ??F (36.9 ??C) Oral 87 14 98 % 03/12/24 0813 (!) 174/48 97.6 ??F (36.4 ??C) Oral 84 20 95 % 03/12/24 0600 (!) 164/63 98.1 ??F (36.7 ??C) Oral 85 24 93 % I/O last 3 completed shifts: In: 1178 [P.O.:1178] Out: - Vitals: 03/02/24 1901 03/05/24 1730 Weight: 85.1 kg (187 lb 9.8 oz) 84.3 kg (185 lb 13.6 oz) Current Weight: ? Dry Weight: 82 Dialysis Temp: 36.5 ??C Access Device: AVG Access Site: left Dialyzer: Revaclear Dialysis Bath: 3 Sodium Profile: n UF Goal: 3 Blood Flow Rate (mL/min): 400 Total Treatment Time (hrs): 3 Heparin: Low dose as required EPO dose: n Zemplar: n IV Fe: n Medications and Allergies: Reviewed Physical Exam: Seen and examined during course of dialysis run BP (!) 154/70 Pulse 80 Temp 98.4 ??F (36.9 ??C) (Oral) Resp 15 Wt 84.3 kg (185 lb 13.6 oz) SpO2 100% BMI 31.90 kg/m?? GENERAL: healthy and no distress RESP: clear CV: RRR, normal S1 S2 MS: no edema EXT: access canulated without issue Data: Recent Labs Lab 03/12/24 0751 03/12/24 0606 NA -- 123* POTASSIUM -- 4.9 CHLORIDE -- 87* CO2 -- 23 ANIONGAP -- 13 GLC 92 77 77 BUN -- 48.4* CR -- 7.98* GFRESTIMATED -- 7* JON -- 8.3* Recent Labs Lab 03/12/2460503/11/24 0703 POTASSIUM 4.9 4.8 Recent Labs Lab 03/12/24 0603/11/24 0703 03/10/24 0746 03/09/24 0549 ALBUMIN 3.0* 2.6* 2.6* 2.8* Recent Labs Lab 03/12/2460503/11/24 1810 03/11/24 0703 03/10/24 1800 03/10/24 0746 03/09/24 0912 03/09/24 0549 PHOS 3.0 -- 2.9 -- 3.0 -- 3.9 HGB 8.1* 8.8* 7.8* 7.0* 7.0* < > 7.5* < > = values in this interval not displayed. Wojciech Holman MD [facility] Nephrology [phone] * Jose Enrique Naylor MD - 03/11/2024 10:24 AM CDT Chart reviewed. Labs and vitals reviewed. Sodium better at 126. Potassium okay. No indication for dialysis today. Noted an episode of vomiting and BOARDING MOTHER. Chest x-ray appears clear without pulmonary congestion or infiltrates. Plan for HD tomorrow. Recent Labs Lab Test 03/11/24 0736 03/11/24 0703 03/10/24 0832 03/10/24 0746 NA -- 126* -- 124* POTASSIUM -- 4.8 -- 4.6 CHLORIDE -- 89* -- 89* CO2 -- 26 -- 25 ANIONGAP -- 11 -- 10 GLC 81 88 < > 95 BUN -- 36.6* -- 29.1* CR -- 6.71* -- 5.54* JON -- 8.0* -- 7.4* < > = values in this interval not displayed. Jose Enrique Naylor MD [facility]ph[facility] [phone] * Nicolasa Luke DO - 03/11/2024 9:13 AM CDT [facility] Medicine Progress Note - Hospitalist Service Date of Admission: 03/02/2024 Assessment & Plan Herminio Victor is a 58 year old male with a history of cognitive impairment, ESRD on HD (MWF),history of DVT on warfarin, type 2 diabetes mellitus, legally blind, history of CVA, hypertension, hyperlipidemia, SHIRLEY with CPAP, obesity admitted on 03/02/2024 with melena. Of note, the patient was re cently hospitalized at [facility] from 02/23 to 02/25 for the treatment of acute chronic anemia with melanotic stools. On 02/24, the patient had an EGD showing small esophageal varices. Inthe emergency department, the patient was found to have a temperature of 96.9 ??F, blood pressure 124/71, heart rate 79, respiratory rate 20, SpO2 95% on room air. Initial lab work showed sodium 131,chloride 91, BUN/creatinine 25.4/3.68, albumin 3.3, glucose 194, hemoglobin 6.3, INR 2.09. The patient was transfused 1 unit of PRBCs. Gastroenterology was consulted to see the patient and recommended conservative management at this time with hemoglobin checks and diet advancement. The patient's hospital course was complicated by episodes of hypoglycemia ultimately requiring D10. EGD on 03/06 showed grade 1 esophageal varices and erythematous mucosa in the greater curvature. Colonoscopy was attempted on 03/08, however poor prep was noted. One 3 mm polyp was biopsied in the rectum. Interval Events: -hgb 7.0 yesterday, transfused 1 unit with hgb this AM 7.8 -BOARDING MOTHER overnight had episode of emesis, CPAP was removed prior to emesis. Overnight MD evaluated pt, emesis yellow with food chunks and nonbloody and denied abdominal pain. Noted crackles LLL, CXR without acute infiltrate, will monitor clinically for pneumonitis/pna. -likely pull fluid off tomorrow with HD Melena Small Esophageal Varices Acute Blood Loss Anemia Anemia of Chronic Kidney Disease - Appreciate GI recommendations. Colonoscopy done, no bleeding site found - PPI PO BID - Dialysis diet. - Transfused PRBC 03/08, 03/09, 03/10 - Similar presentation to the week prior and had EGD on 02/25/2024 showing small esophageal varices - Hgb q12h - Transfuse for hgb 7 or less - For completion I have ordered studies to rule out hemolysis. Bilirubin is normal, LDH is normal, haptoglobin normal Moderate hyponatremia, suspect hypervolemic hyponatremia. Not symptomatic. - Daily BMP ESRD on HD (MWF) - Appreciate Nephrology management of HD Type 2 Diabetes Mellitus with Hypoglycemia - A1C = 5.5 on 03/02/2024 - Hypoglycemia noted the morning of 03/03. Appeared to be asymptomatic - BOARDING MOTHER called for EGD 03/06 because of hypoglycemia. Blood sugar down to 38. - Trialed off D10 on 03/10 with diet advancement. Glucometer checks q1h for 6 hours after stopping D10 stable. Hx of DVT on Warfarin Warfarin Coagulopathy - INR upon arrival was 2.23 - Resume warfarin on 03/10 and appreciate pharmacy assistance with dosing Lytic Lesion of L5 - As noted on recent CT abd pelv showing focal lytic lesion with soft tissue thickening - Possibly representing a Schmorl node - Recommend outpatient lumbar MRI with PCP. This was discussed with the patient's Aunt via phone. We discussed that sometimes this can indicate cancer. She expressed understanding. Right upper extremity swelling. Negative for DVT. Extensive superficial vein thrombosis in the cephalic vein. Unclear whether this is part of the reason for the swelling, anticoagulation is precluded given current ongoing bleeding/acute anemia. 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 Vascular team consulted. Midline placement and in use. Chronic Medical Problems: Cognitive Impairment - Lives with Mother and Aunt (who is his SKIDDER RUNNER) Hx of CVA Legally Blind Hypertension Hyperlipidemia SHIRLEY with CPAP Aortic Stenosis Obesity - BMI 32.20 Diet: Renal Diet (dialysis) DVT Prophylaxis: Pneumatic Compression Devices Valadez Catheter: Not present Lines: PRESENT Hemodialysis Vascular Access AV fistula Left Thigh-Site Assessment: WDL;Bruit present;Thrill present Cardiac Monitoring: None Code Status: Full Code Clinically Significant Risk Factors # Hyponatremia: Lowest Na = 124 mmol/L in last 2 days, will monitor as appropriate # Hypoalbuminemia: Lowest albumin = 2.6 g/dL at 03/11/2024 7:03 AM, will monitor as appropriate # Obesity: Estimated body mass index is 31.9 kg/m?? as calculated from the following: Height as of 02/24/24: 1.626 m (5' 4). Weight as of this encounter: 84.3 kg (185 lb 13.6 oz). Disposition Plan Expected Discharge Date: 03/11/2024, 3:00 PM Destination: home with help/services Nicolasa Luke DO Hospitalist Service [facility] Securely message with MashON (more info) Text page via LastRoom Paging/Directory Physical Exam Vital Signs: Temp: 98.7 ??F (37.1 ??C) Temp src: Oral BP: (!) 150/59 Pulse: 92 Resp: 24 SpO2: 100 %O2 Device: None (Room air) Oxygen Delivery: 2 LPM Weight: 185 lbs 13.56 oz General: Very pleasant male , NAD HEENT: Sclerae anicteric. Mucous membranes moist. Cardiac: Regular rate and rhythm without murmur Respiratory: Normal work of breathing. Clear to auscultation bilaterally GI: Abdomen soft, nontender, nondistended. Musculoskeletal: Moving all extremities appropriately. Medical Decision Making 40 MINUTES SPENT BY ME on the date of service doing chart review, history, exam, documentation & further activities per the note. Data PAST 24 HR DATA REVIEWED I have personally reviewed the following data over the past 24 hrs: 9.9 \ 7.8 (L) / 154 126 (L) 89 (L) 36.6 (H) / 81 4.8 26 6.71 (H) \ ALT: N/A AST: N/A AP: N/A TBILI: N/A ALB: 2.6 (L) TOT PROTEIN: N/A LIPASE: N/A INR: 1.11 PTT: N/A D-dimer: N/A Fibrinogen: N/A * Harriett Jacobsen RN - 03/11/2024 3:23 AM CDT BOARDING MOTHER called. Patient had received 1 unit of blood earlier in the evening. Had cpap put on for the night. balance staff staker and law writer came into the room and cpap mask was off and patient was on his left side and had vomited. Emesis was yellow in color with some food chunks. Vomit was not evident in the cpap mask. Respiratory was paged and came to see the patient at the bedside. Cross cover was also paged. BOARDING MOTHER was then called incase patient had aspirated on vomit. Cpap was not placed back on patient after emesis episode. * Portia Domingo RT - 03/11/2024 3:10 AM CDT Attended BOARDING MOTHER that was called due to pt vomiting. Pt was wearing CPAP(ResMed) via mask. Mask was removed prior to vomiting. Pt was placed on couple liters of oxygen briefly and taken off. Sats good. We will try to stay off CPAP for the rest of the shift. RT Dewayne on 03/11/2024 at 3:21 AM * Addis Zhang MD, - 03/11/2024 3:07 AM CDT Responded to BOARDING MOTHER called for an episode of emesis. Patient was wearing CPAP, to mask it been removedprior to his emesis which was yellow in color and nonbloody. He denies any abdominal pain. Temp: 97.6 ??F (36.4 ??C) Temp src: Oral BP: (!) 160/59 Pulse: 92 Resp: 20 SpO2: 95 % O2 Device: BiPAP/CPAP (ResMed) Oxygen Delivery: 2 LPM Gen - alert, awake, follows commands. Lungs - + crackles on LLL. Heart - RR,S1+S2 nml, no m/g/r. Abd - soft, NT, ND, + BS. A/P -hold off on CPAP for now, will get an x-ray of the chest due to concern for aspiration pneumonia. CXR - no infiltrate. * Portia Domingo, RT - 03/11/2024 12:30 AM CDT A CPAP of 5-15 with 2L bleed in was applied to the pt via the mask for NOC use. The bridge of the nose looks good and remains intact. Pt is tolerating it well. Will continue to monitor and assess thept's current respiratory status and needs. RT Dewayne on 03/11/2024 at 12:31 AM * Sid Szymanski RN - 03/10/2024 11:05 PM CDT 1 unit of blood almost done transfusing. No signs of transfusion reaction noted. Updated the incoming nurse to check the final vitals and complete the transfusion. * Raul Carter RN - 03/10/2024 6:43 PM CDT HGB recheck 7.0, notified. Check type and screen followed by 1 UPRBC * Aashish Romero DO - 03/10/2024 10:27 AM CDT [facility] Hospitalist Progress Note Name: Herminio Victor Provider: Aashish Romero DO Date of Service: 03/10/2024 Summary of Stay: Herminio Victor is a 58 year old male with a history of cognitive impairment, ESRD on HD (MWF), history of DVT on warfarin, type 2 diabetes mellitus, legally blind, history of CVA, hypertension, hyperlipidemia, SHIRLEY with CPAP, obesity admitted on 03/02/2024 with melena. Of note, the patient was recently hospitalized at [facility] from 02/23 to 02/25 for the treatment of acute chronic anemia with melanotic stools. On 02/24, the patient had an EGD showing small esophageal varices. In the emergency department, the patient was found to have a temperature of 96.9 ??F,blood pressure 124/71, heart rate 79, respiratory rate 20, SpO2 95% on room air. Initial lab work showed sodium 131, chloride 91, BUN/creatinine 25.4/3.68, albumin 3.3, glucose 194, hemoglobin 6.3, INR 2.09. The patient was transfused 1 unit of PRBCs. Gastroenterology was consulted to see the patient. Gastroenterology recommended conservative management at this time with hemoglobin checks and diet advancement. The patient's hospital course was complicated by episodes of hypoglycemia ultimately requiring D10. EGD on 03/06 showed grade 1 esophageal varices and erythematous mucosa in the greater curvature. Colonoscopy was attempted on 03/08, however poor prep was noted. One 3 mm polyp was biopsied in the rectum. The patient's diet was advanced and hemoglobin was trended. TODAY'S PLAN: Appreciate GI recommendations. Colonoscopy yesterday with poor prep. 1 rectal polyp was biopsied. Plan is to monitor hemoglobin with resumption of warfarin today and advancement of diet. If continues to have anemia or melanotic stools return patient should be considered for outpatientpill endoscopy. Discontinue D10 this morning as blood sugars have been stable and monitor glucose hourly for 6 hours after stopping the D10 drip. Anticipate discharge home in the next 1 to 2 days if hemoglobin is stable. Continue hemoglobin checks q12h and transfuse for hemoglobin 7 or less. Of note, hgb 7.0 this morning. Hold transfusion and plan for recheck this evening. Updated mother Arianna Flynn/SKIDDER RUNNER Thelma via phone. All questions answered. Problem List: Melena Small Esophageal Varices Acute Blood Loss Anemia Anemia of Chronic Kidney Disease - Appreciate GI recommendations. Colonoscopy done, no bleeding site found - PPI PO BID - Dialysis diet. - Transfused PRBC 03/08, 03/09 - Similar presentation to the week prior and had EGD on 02/25/2024 showing small esophageal varices - Hgb q12h - Transfuse for hgb 7 or less - For completion I have ordered studies to rule out hemolysis. Bilirubin is normal, LDH is normal, haptoglobin normal Moderate hyponatremia, suspect hypervolemic hyponatremia. Not symptomatic. - Daily BMP ESRD on HD (MWF) - Appreciate Nephrology management of HD Type 2 Diabetes Mellitus with Hypoglycemia - A1C = 5.5 on 03/02/2024 - Hypoglycemia noted the morning of 03/03. Appeared to be asymptomatic - BOARDING MOTHER called for EGD 03/06 because of hypoglycemia. Blood sugar down to 38. - Trial off D10 on 03/10 with diet advancement. Glucometer checks q1h for 6 hours after stopping D10 Hx of DVT on Warfarin Warfarin Coagulopathy - INR upon arrival was 2.23 - Resume warfarin on 03/10 and appreciate pharmacy assistance with dosing Lytic Lesion of L5 - As noted on recent CT abd pelv showing focal lytic lesion with soft tissue thickening - Possibly representing a Schmorl node - Recommend outpatient lumbar MRI with PCP. This was discussed with the patient's Aunt via phone. We discussed that sometimes this can indicate cancer. She expressed understanding. Right upper extremity swelling. Negative for DVT. Extensive superficial vein thrombosis in the cephalic vein. Unclear whether this is part of the reason for the swelling, anticoagulation is precluded given current ongoing bleeding/acute anemia. . 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 Vascular team consulted. Midline placement and in use. Chronic Medical Problems: Cognitive Impairment - Lives with Mother and Aunt (who is his SKIDDER RUNNER) Hx of CVA Legally Blind Hypertension Hyperlipidemia SHIRLEY with CPAP Aortic Stenosis Obesity - BMI 32.20 I spent 44 minutes in reviewing this patient's labs, imaging, medications, medical history. In addition time was spent interviewing the patient, communicating with family, and medical decision making. DVT Prophylaxis: Warfarin Code Status: Full Code Diet: Renal Diet (dialysis) Valadez Catheter: Not present Disposition: Medically Ready for Discharge: Anticipated Tomorrow (1-2 days) Goals to discharge include: hgb stable, no further melena with resumption of warfarin Family updated today: Yes Interval History Pt seen and examined. Pt denies any abdominal pain. -Data reviewed today: I personally reviewed all new labs and imaging results over the last 24 hours. Physical Exam Temp: 99 ??F (37.2 ??C) Temp src: Oral BP: (!) 178/53 Pulse: 90 Resp: 18 SpO2: 90 % O2 Device: BiPAP/CPAP Oxygen Delivery: 2 LPM Vitals: 03/02/24 1901 03/05/24 1730 Weight: 85.1 kg (187 lb 9.8 oz) 84.3 kg (185 lb 13.6 oz) Vital Signs with Ranges Temp: [97.4 ??F (36.3 ??C)-99 ??F (37.2 ??C)] 99 ??F (37.2 ??C) Pulse: [68-90] 90 Resp: [9-25] 18 BP: (117-190)/(28-71) 178/53 SpO2: [90 %-100 %] 90 % I/O last 3 completed shifts: In: 1989 [P.O.:1989] Out: 2514 [Other:251] GENERAL: No apparent distress. Awake, alert, and fully oriented. HEENT: Normocephalic, atraumatic. Extraocular movements intact. CARDIOVASCULAR: Regular rate and rhythm without murmurs or rubs. No S3. PULMONARY: Clear bilaterally. GASTROINTESTINAL: Soft, non-tender, non-distended. Bowel sounds normoactive. EXTREMITIES: No cyanosis or clubbing. No edema. NEUROLOGICAL: CN 2-12 grossly intact, no focal neurological deficits. DERMATOLOGICAL: No rash, ulcer, bruising, nor jaundice. Medications Current Facility-Administered Medications Medication Dose Route Frequency Provider Last Rate Last Admin sodium chloride 0.9 % infusion Intravenous Continuous Eileen Earl MD 10 mL/hr at 03/06/24 1252 New Bag at 03/06/24 1252 Current Facility-Administered Medications Medication Dose Route Frequency Provider Last Rate Last Admin - MEDICATION INSTRUCTIONS for Dialysis Patients - Does not apply See Admin Instructions Eileen Earl MD amLODIPine (NORVASC) tablet 5 mg 5 mg Oral Daily Eileen Earl MD 5 mg at 03/10/24 09 atorvastatin (LIPITOR) tablet 20 mg 20 mg Oral QPM Eileen Earl MD 20 mg at 03/09/241912 calcium acetate (PHOSLO) capsule 667 mg 667 mg Oral TID w/meals Eileen Earl MD 667 mg at 03/10/24901 insulin aspart (NovoLOG) injection (RAPID ACTING) 1-4 Units Subcutaneous TID w/meals Aashish Romero DO metoprolol tartrate (LOPRESSOR) tablet 100 mg 100 mg Oral QAM Eileen Earl MD 100 mg at 03/10/24 09 multivitamin RENAL (TRIPHROCAPS) capsule Oral QPM Eileen Earl MD 1 mg at 03/09/241913 pantoprazole (PROTONIX) EC tablet 40 mg 40 mg Oral BID AC Eileen Earl MD 40 mg at 902 sennosides (SENOKOT) tablet 2 tablet 2 tablet Oral Every Other Day Eileen Earl MD 2 tabletat 03/10/24 0902 sodium chloride (PF) 0.9% PF flush 10 mL 10 mL Intracatheter Q8H Antonino Cheek MD 10 mL at 03/08/24 1621 Warfarin Dose Required Daily - Pharmacist Managed 1 each Oral See Admin Instructions Aashish Romero, DO Data Laboratory: Recent Labs Lab 03/10/24 0746 03/09/24 2350 03/09/24 1913 03/09/24 1416 03/09/24 0912 03/07/24 0104 03/06/24 1628 03/05/24 1212 03/05/24 0735 WBC -- -- -- -- 10.1 -- 7.4 -- 8.6 HGB 7.0* 7.5* 7.6* < > 7.5* < > 7.4* 7.4* < > 7.1* 7.1* HCT -- -- -- -- 22.5* -- 22.0* -- 22.2* MCV -- -- -- -- 88 -- 88 -- 90 PLT -- -- -- -- 159 -- 145* -- 162 < > = values in this interval not displayed. Recent Labs Lab 03/10/24 0832 03/10/24 0746 03/10/24 0338 03/09/24 0755 03/09/24 0549 03/08/24 0850 03/08/24 0625 NA -- 124* -- -- 124* -- 128* POTASSIUM -- 4.6 -- -- 5.5* -- 4.7 CHLORIDE -- 89* -- -- 86* -- 89* CO2 -- 25 -- -- 23 -- 26 ANIONGAP -- 10 -- -- 15 -- 13 GLC 105* 95 112* < > 111* < > 107* BUN -- 29.1* -- -- 34.6* -- 30.2* CR -- 5.54* -- -- 6.70* -- 5.58* GFRESTIMATED -- 11* -- -- 9* -- 11* JON -- 7.4* -- -- 7.2* -- 7.2* < > = values in this interval not displayed. No results for input(s): CULT in the last 168 hours. No results found for: TROPI Imaging: No results found for this or any previous visit (from the past 24 hour(s)). Aashish Romero DO [facility] Hospitalist [place] [address] Securely message with MashON (more info) Text page via [facility] – [place] CITYChatous Paging/Directory 03/10/2024 * Portia Domingo, RT - 03/10/2024 2:06 AM CDT A CPAP of 5-15 with 2L bleed in was applied to the pt via the mask for NOC use. The bridge of the nose looks good and remains intact. Pt is tolerating it well. Will continue to monitor and assess thept's current respiratory status and needs. RT Dewayne on 03/10/2024 at 2:08 AM * Jose Enrique Naylor MD - 03/09/2024 12:32 PM CDT Nephrology Progress Note 03/09/2024 Assessment & Recommendations: 58 y.o man with ESRD, HTN, DM and severe anemia. # ESRD: -MWF -L upper thigh AVF, 15 g -EDW 82 kg -3.5 hrs +heparin -Dr. Holman # Anemia: GIB? -s/p one unit prbc -Mircera with HD # hyperkalemia - Should improve with dialysis today. -Renal diet # Hyponatremia-worse with D10 drip. # DVT: on coumadin Plan: -Dialysis today. -138 sodium bath -2-3 L ultrafiltration -Renal diet -Fluid restriction to 1200 mL daily -Venofer with HD -Will hold heparin with HD -Encourage oral intake. Minimize D10 use as able given low sodium Jose Enrique Naylor MD [facility] - Nephrology [phone] Interval History : Seen / examined on dialysis. Early part of dialysis going okay. Access working okay. Vital stable. UF goal of 2 L. Hemoglobin stable at 7.5. Physical Exam: I/O last 3 completed shifts: In: 300 Out: - BP 121/67 Pulse 73 Temp 97.6 ??F (36.4 ??C) (Oral) Resp 13 Wt 84.3 kg (185 lb 13.6 oz) SpO2 92% BMI 31.90 kg/m?? GENERAL APPEARANCE: no distress EYES: no scleral icterus, pupils equal PULM: lungs clear to auscultation, equal air movement, no cyanosis or clubbing CV: regular rhythm, normal rate, no rub -JVP - -edema - GI: soft, non tender, NEURO: mentation intact and speech normal, no asterixis Access - Lt thigh AVF with good bruit and thrill Labs: All labs reviewed by il Electrolytes/Renal - Recent Labs Lab Test 03/09/24 0755 03/09/24 0549 03/09/24 0431 03/08/24 0850 03/08/24 0625 03/07/24 0849 03/07/24 0621 NA -- 124* -- -- 128* -- 119* POTASSIUM -- 5.5* -- -- 4.7 -- 5.5* CHLORIDE -- 86* -- -- 89* -- 78* CO2 -- 23 -- -- 26 -- 25 BUN -- 34.6* -- -- 30.2* -- 55.9* CR -- 6.70* -- -- 5.58* -- 7.68* GLC 91 111* 112* < > 107* < > 92 JON -- 7.2* -- -- 7.2* -- 7.3* PHOS -- 3.9 -- -- 3.9 -- 5.7* < > = values in this interval not displayed. CBC - Recent Labs Lab Test 03/09/24 0912 03/09/24 0549 03/08/24 2235 03/07/24 0104 03/06/24 1628 03/05/24 1212 03/05/24 0735 WBC 10.1 -- -- -- 7.4 -- 8.6 HGB 7.5* 7.5* 7.5* < > 7.4* 7.4* < > 7.1* 7.1* PLT 159 -- -- -- 145* -- 162 < > = values in this interval not displayed. LFTs - Recent Labs Lab Test 03/09/24 0912 03/09/24 0549 03/08/24 0625 03/07/24 0621 03/06/24 0654 03/05/24 0735 03/04/24 0645 03/02/24 1356 ALKPHOS -- -- -- -- -- 76 61 73 BILITOTAL 0.5 -- -- -- -- 0.4 0.5 0.2 ALT -- -- -- -- -- 15 19 25 AST -- -- -- -- -- 22 28 25 PROTTOTAL -- -- -- -- -- 5.4* 5.5* 6.4 ALBUMIN -- 2.8* 2.8* 2.8* < > 2.7* 2.9* 3.3* < > = values in this interval not displayed. Iron Panel - Recent Labs Lab Test 02/26/24 0610 IRON 38* IRONSAT 28 NANNETTE 1,463* Current Medications: Current Facility-Administered Medications Medication Dose Route Frequency Provider Last Rate Last Admin - MEDICATION INSTRUCTIONS for Dialysis Patients - Does not apply See Admin Instructions Eileen Earl MD amLODIPine (NORVASC) tablet 5 mg 5 mg Oral Daily Eileen Earl MD 5 mg at 03/09/24 08 atorvastatin (LIPITOR) tablet 20 mg 20 mg Oral QPM Eileen Earl MD 20 mg at 03/08/242045 calcium acetate (PHOSLO) capsule 667 mg 667 mg Oral TID w/meals Eileen Earl MD 667 mg at 03/09/24 08 insulin aspart (NovoLOG) injection (RAPID ACTING) 1-4 Units Subcutaneous Q4H Antonino Cheek MD metoprolol tartrate (LOPRESSOR) tablet 100 mg 100 mg Oral QAM Eileen Earl MD 100 mg at 03/09/24 0806 multivitamin RENAL (TRIPHROCAPS) capsule Oral QPM Eileen Earl MD 1 mg at 03/08/24 204 No heparin via hemodialysis machine Does not apply Once Jose Enrique Naylor MD pantoprazole (PROTONIX) EC tablet 40 mg 40 mg Oral BID AC Eileen Earl MD 40 mg at 805 sennosides (SENOKOT) tablet 2 tablet 2 tablet Oral Every Other Day Eileen Earl MD 2 tabletat 03/04/24 0900 sodium chloride (PF) 0.9% PF flush 10 mL 10 mL Intracatheter Q8H Antonino Cheek MD 10 mL at 03/08/24 1621 Current Facility-Administered Medications Medication Dose Route Frequency Provider Last Rate Last Admin dextrose 10% infusion Intravenous Continuous Eileen Earl MD 40 mL/hr at 03/09/24 0945 RateVerify at 03/09/24 0945 sodium chloride 0.9 % infusion Intravenous Continuous Eileen Earl MD 10 mL/hr at 03/06/24 1252 New Bag at 03/06/24 1252 Jose Enrique Naylor MD * Mackenzie Cheek PA-C - 03/09/2024 12:29 PM CDT Images from the original note were not included. GASTROENTEROLOGY PROGRESS NOTE SUBJECTIVE: No further reports of melena. No abdominal pain. Tolerating renal diet. OBJECTIVE: BP 121/67 Pulse 73 Temp 97.6 ??F (36.4 ??C) (Oral) Resp 13 Wt 84.3 kg (185 lb 13.6 oz) SpO2 92% BMI 31.90 kg/m?? Temp (24hrs), Av.7 ??F (36.5 ??C), Min:97.5 ??F (36.4 ??C), Max:98.1 ??F (36.7 ??C) No data found. Intake/Output Summary (Last 24 hours) at 03/09/2024 1229 Last data filed at 03/09/2024 0945 Gross per 24 hour Intake 480 ml Output -- Net 480 ml Additional Comments: ROS, FH, SH: See initial GI consult for details. I have reviewed the patient's new clinical lab results: Recent Labs Lab Test 03/09/24 0903/09/24 0549 03/08/24 2235 03/08/24 1442 03/08/24 0625 03/07/24 1858 03/07/24 0621 03/07/24 0104 03/06/24 1628 03/05/24 1212 03/05/24 0735 WBC 10.1 -- -- -- -- -- -- -- 7.4 -- 8.6 HGB 7.5* 7.5* 7.5* < > 6.7* < > 7.8* < > 7.4* 7.4* < > 7.1* 7.1* MCV 88 -- -- -- -- -- -- -- 88 -- 90 PLT 159 -- -- -- -- -- -- -- 145* -- 162 INR 1.13 -- -- -- 1.18* -- 1.28* -- -- < > 2.20* < > = values in this interval not displayed. Recent Labs Lab Test 03/09/2454803/08/2462403/07/24 0621 POTASSIUM 5.5* 4.7 5.5* CHLORIDE 86* 89* 78* CO2 23 25 BUN 34.6* 30.2* 55.9* ANIONGAP 15 13 16* Recent Labs Lab Test 03/09/2491103/09/2449 03/08/24 0625 03/07/24 0621 03/06/24 0654 03/05/24 0735 03/04/24 0645 03/02/24 1356 ALBUMIN -- 2.8* 2.8* 2.8* < > 2.7* 2.9* 3.3* BILITOTAL 0.5 -- -- -- -- 0.4 0.5 0.2 ALT -- -- -- -- -- 15 19 25 AST -- -- -- -- -- 28 25 < > = values in this interval not displayed. ASSESSMENT/ PLAN Herminio Ramon Kayleigh is a 58 yo male with a history of cognitive impairment, ESRD on HD (MWF), history of DVT on warfarin, type 2 diabetes mellitus, legally blind, history of CVA, hypertension, obesity admitted on 03/02/2024 with melena. 1. Anemia : suspect subacute to chronic, normal +iron sat, low TIBC, normal MCV. Hgb today 7.5. EGDyesterday with grade I esophageal varices, and gastric erythema. Colonoscopy with poor prep yesterday without reason for anemia seen. Concern for possible hemolysis. -- PPI BID -- Repeat colonoscopy in 7 years. -- If it is thought GI losses are contributing in the future, can do an outpatient pill camera study. 2. ESRD on dialysis 3. Developmental delay/cognitive impairment 4. Coumadin anticoagulation, h/o DVT Total time: 25 minutes of total time was spent providing patient care, including patient evaluation, reviewing documentation/test results, and order analyst. Discussed with Dr. Earl. Will no longer follow. Please call with questions or change in condition. Ebony Cheek PA-C [facility] ( [facility]) * Cintia Valadez RN - 03/09/2024 10:10 AM CDT Potassium Date Value Ref Range Status 03/09/2024 5.5 (H) 3.4 - 5.3 mmol/L Final 01/24/2018 4.3 3.4 - 5.3 mmol/L Final Hemoglobin Date Value Ref Range Status 03/09/2024 7.5 (L) 13.3 - 17.7 g/dL Final 01/24/2018 8.2 (L) 13.3 - 17.7 g/dL Final Creatinine Date Value Ref Range Status 03/09/2024 6.70 (H) 0.67 - 1.17 mg/dL Final 01/25/2019 9.17 (H) 0.66 - 1.25 mg/dL Final Urea Nitrogen Date Value Ref Range Status 03/09/2024 34.6 (H) 8.0 - 23.0 mg/dL Final 01/24/2018 78 (H) 7 - 30 mg/dL Final Sodium Date Value Ref Range Status 03/09/2024 124 (L) 135 - 145 mmol/L Final Comment: [...] Final INR Date Value Ref Range Status 03/09/2024 1.13 0.85 - 1.15 Final 03/18/2020 2.97 (H) 0.86 - 1.14 Final DIALYSIS PROCEDURE NOTE Hepatitis status of previous patient on machine log was checked and verified ok to use with this patients hepatitis status. Patient dialyzed for 3 hrs. on a K2 bath with a net fluid removal of 2.5L. A BFR of 400 ml/min was obtained via a LLE AVF using 15 gauge needles. The treatment plan was discussed with Dr. Naylor during the treatment. Total heparin received during the treatment: 0 units. Needle cannulation sites held x 5 min. Meds given: none Complications: none Person educated: patient. Knowledge base moderate. Barriers to learning: cognitive impairment makesassessment challenging. Educated on patient via verbal mode. Patient verbalized understanding. ICEBOAT? Timeout performed pre-treatment I: Patient was identified using 2 identifiers C: Consent Signed Yes E: Equipment preventative maintenance is current and dialysis delivery system OK to use B: Latest Reference Range & Units 02/25/24 06:45 02/26/24 11:13 Hep B Surface Agn Nonreactive Nonreactive Hepatitis B Surface Antibody Instrument Value <8.5 m[IU]/mL >1,000.00 Hepatitis B Surface Antibody Reactive O: Dialysis orders present and complete prior to treatment A: Vascular access verified and assessed prior to treatment T: Treatment was performed at a clinically appropriate time ?: Patient was allowed to ask questions and address concerns prior to treatment See Adult Hemodialysis flowsheet in [facility] for further details and post assessment. Machine water alarm in place and functioning. Transducer pods intact and checked every 15min. Pt assisted with repositioning throughout dialysis treatment. Pt returned via bed. Chlorine/Chloramine water system checked every 4 hours. Post treatment report given to LINDA Menon regarding 2.5L of fluid removed, last BP 134/80. Please remove patient dressing on AVF and AVG needle sites 24 hours after dialysis. If leaking occurs please apply a Band-Aid. Cintia Valadez RN * Antonino Cheek MD - 03/09/2024 8:[address] [facility] Medicine Progress Note - Hospitalist Service Date of Admission: 03/02/2024 Assessment & Plan Herminio Victor is a 58 year old male with a history of cognitive impairment, ESRD on HD (MWF),history of DVT on warfarin, type 2 diabetes mellitus, legally blind, history of CVA, hypertension, hyperlipidemia, SHIRLEY with CPAP, obesity admitted on 03/02/2024 with melena. Of note, the patient was re cently hospitalized at [facility] from 02/23 to 02/25 for the treatment of acute chronic anemia with melanotic stools. On 02/24, the patient had an EGD showing small esophageal varices. Inthe emergency department, the patient was found to have a temperature of 96.9 ??F, blood pressure 124/71, heart rate 79, respiratory rate 20, SpO2 95% on room air. Initial lab work showed sodium 131,chloride 91, BUN/creatinine 25.4/3.68, albumin 3.3, glucose 194, hemoglobin 6.3, INR 2.09. The patient was transfused 1 unit of PRBCs. Gastroenterology was consulted to see the patient. Gastroenterology recommended conservative management at this time with hemoglobin checks and diet advancement. The patient's hospital course was complicated by episodes of hypoglycemia ultimately requiring D10. Problem List: Melena Small Esophageal Varices Acute Blood Loss Anemia Anemia of Chronic Kidney Disease - Appreciate GI recommendations. Colonoscopy done, no bleeding site found - PPI PO BID -Dialysis diet. - Last unit PRBC 03/08, 1 more today currently transfused. - Hgb 7.5 today, - Similar presentation to the week prior and had EGD on 02/25/2024 showing small esophageal varices - Will continue hemoglobin surveillance and transfuse as needed - For completion I have ordered studies to rule out hemolysis. Bilirubin is normal, LDH is normal, Moderate hyponatremia, suspect hypervolemic hyponatremia. Not symptomatic. Na 128 (119). Improved with dialysis. Nephrology is following. ESRD on HD (MWF) - Appreciate Nephrology management of HD Type 2 Diabetes Mellitus with Hypoglycemia - A1C = 5.5 on 03/02/2024 - Hypoglycemia noted the morning of 03/03. Appeared to be asymptomatic - BOARDING MOTHER called for EGD 03/06 because of hypoglycemia. Blood sugar down to 38. - Plan for colonoscopy tomorrow, colon preparation today. Discussed with gastroenterology not to follow protocol keeping the patient n.p.o. since 3 PM in the afternoon, will allow him clear liquid diet and n.p.o. after midnight. Goal to minimize chances of hypoglycemia. Hx of DVT on Warfarin Warfarin Coagulopathy - INR upon arrival was 2.23 - Holding warfarin due to GIB -Vitamin K given before EGD. INR Date Value Ref Range Status 03/08/2024 1.18 (H) 0.85 - 1.15 Final 03/18/2020 2.97 (H) 0.86 - 1.14 Final Lytic Lesion of L5 - As noted on recent CT abd pelv showing focal lytic lesion with soft tissue thickening - Possibly representing a Schmorl node - Recommend outpatient lumbar MRI with PCP. This was discussed with the patient's Aunt via phone. We discussed that sometimes this can indicate cancer. She expressed understanding. Right upper extremity swelling. Negative for DVT. Extensive superficial vein thrombosis in the cephalic vein. Unclear whether this is part of the reason for the swelling, anticoagulation is precluded given current ongoing bleeding/acute anemia. . 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 Vascular team consulted. Midline placement and in use. Chronic Medical Problems: Cognitive Impairment - Lives with Mother and Aunt (who is his SKIDDER RUNNER) Hx of CVA Legally Blind Hypertension Hyperlipidemia SHIRLEY with CPAP Aortic Stenosis Obesity - BMI 32.20 Diet: Renal Diet (dialysis) DVT Prophylaxis: Pneumatic Compression Devices. Warfarin on hold Valadez Catheter: Not present Lines: PRESENT Hemodialysis Vascular Access AV fistula Left Thigh-Site Assessment: WDL Cardiac Monitoring: None Code Status: Full Code Clinically Significant Risk Factors # Hyperkalemia: Highest K = 5.5 mmol/L in last 2 days, will monitor as appropriate # Hyponatremia: Lowest Na = 124 mmol/L in last 2 days, will monitor as appropriate # Hypoalbuminemia: Lowest albumin = 2.6 g/dL at 03/06/2024 6:54 AM, will monitor as appropriate # Coagulation Defect: INR = 1.18 (Ref range: 0.85 - 1.15) and/or PTT = N/A, will monitor for bleeding # Obesity: Estimated body mass index is 31.9 kg/m?? as calculated from the following: Height as of 02/24/24: 1.626 m (5' 4). Weight as of this encounter: 84.3 kg (185 lb 13.6 oz). Disposition Plan Medically Ready for Discharge: Anticipated in 2-4 Days Antonino Cheek MD Hospitalist Service [facility] Securely message with MashON (more info) Text page via [facility] Paging/Directory Interval History Denies any symptoms today. Underwent colonoscopy yesterday. Hgb> 7, no need for transfusing 1 Appreciate GI recommendations. Will resume renal diet. Holding warfarin for now. Continue hemoglobin trend q 6 h. Hyponatremia, suspect hypervolemic hyponatremia, corrected after dialysis. Vascular team assistance appreciated with midline placement. Appreciate Nephrology assistance with HD and electrolyte management. Physical Exam Vital Signs: Temp: 97.7 ??F (36.5 ??C) Temp src: Axillary BP: (!) 194/70 Pulse: 74 Resp: 16 SpO2: 98 % O2 Device: BiPAP/CPAP Oxygen Delivery: 2 LPM Weight: 185 lbs 13.56 oz GEN: Alert, cooperative, appears comfortable, NAD. HEENT: Normocephalic/atraumatic, no scleral icterus, no nasal discharge, mouth moist. CV: Regular rate and rhythm, YARA II/ LSB. No JVD seen. S1 + S2 noted, no S3 or S4. LUNGS: Clear to auscultation bilaterally without rales/rhonchi/wheezing/retractions. Symmetric chest rise on inhalation noted. ABD: Active bowel sounds, soft, non-tender/non-distended. No rebound/guarding/rigidity. EXT: No edema or cyanosis. No joint synovitis noted. SKIN: Dry to touch, no exanthems noted in the visualized areas. Medical Decision Making 50 MINUTES SPENT BY ME on the date of service doing chart review, history, exam, documentation & further activities per the note. Data I have personally reviewed the following data over the past 24 hrs: N/A \ 7.5 (L) / N/A 124 (L) 86 (L) 34.6 (H) / 91 5.5 (H) 23 6.70 (H) \ ALT: N/A AST: N/A AP: N/A TBILI: N/A ALB: 2.8 (L) TOT PROTEIN: N/A LIPASE: N/A Imaging results reviewed over the past 24 hrs: No results found for this or any previous visit (from the past 24 hour(s)). * Douglas Zarate RT - 03/09/2024 5:37 AM CDT Respiratory Care Note: Pt placed on Auto CPAP 5-15 with 2L bleed in for NOC use. Bs diminished. Spo2 97%. Will continue toassess and monitor. RT Mariluz on 03/09/2024 at 5:39 AM * Jose Enrique Naylor MD - 03/08/2024 11:54 AM CDT Chart reviewed. Labs and vitals reviewed. Sodium improved 228. Hemoglobin down to 6.7. Transfusion per primary team. Noted plans for colonoscopy today. Plan for HD tomorrow. Recent Labs Lab Test 03/08/24 1135 03/08/24 1111 03/08/24 0850 03/08/24 0625 03/07/24 0849 03/07/24 0621 NA -- -- -- 128* -- 119* POTASSIUM -- -- -- 4.7 -- 5.5* CHLORIDE -- -- -- 89* -- 78* CO2 -- -- -- 26 -- 25 ANIONGAP -- -- -- 13 -- 16* GLC 112* 65* < > 107* < > 92 BUN -- -- -- 30.2* -- 55.9* CR -- -- -- 5.58* -- 7.68* JON -- -- -- 7.2* -- 7.3* < > = values in this interval not displayed. Jose Enrique Naylor MD [facility] - Nephrology [phone] * Antonino Cheek MD - 03/08/2024 8:[address] [facility] Medicine Progress Note - Hospitalist Service Date of Admission: 03/02/2024 Assessment & Plan Herminio Victor is a 58 year old male with a history of cognitive impairment, ESRD on HD (MWF),history of DVT on warfarin, type 2 diabetes mellitus, legally blind, history of CVA, hypertension, hyperlipidemia, SHIRLEY with CPAP, obesity admitted on 03/02/2024 with melena. Of note, the patient was re cently hospitalized at [facility] from 02/23 to 02/25 for the treatment of acute chronic anemia with melanotic stools. On 02/24, the patient had an EGD showing small esophageal varices. Inthe emergency department, the patient was found to have a temperature of 96.9 ??F, blood pressure 124/71, heart rate 79, respiratory rate 20, SpO2 95% on room air. Initial lab work showed sodium 131,chloride 91, BUN/creatinine 25.4/3.68, albumin 3.3, glucose 194, hemoglobin 6.3, INR 2.09. The patient was transfused 1 unit of PRBCs. Gastroenterology was consulted to see the patient. Gastroenterology recommended conservative management at this time with hemoglobin checks and diet advancement. The patient's hospital course was complicated by episodes of hypoglycemia ultimately requiring D10. Problem List: Melena Small Esophageal Varices Acute Blood Loss Anemia Anemia of Chronic Kidney Disease - Appreciate GI recommendations. Plan for colonoscopy today - PPI PO BID - n.p.o. for scope today. - Last unit PRBC 03/06, 1 more today currently running. - Hgb 6.7 today, - Similar presentation to the week prior and had EGD on 02/25/2024 showing small esophageal varices - Will continue hemoglobin surveillance and transfuse as needed Moderate hyponatremia, suspect hypervolemic hyponatremia. Not symptomatic. Na 128 (119). Improved with dialysis. Nephrology is following. ESRD on HD (MWF) - Appreciate Nephrology management of HD Type 2 Diabetes Mellitus with Hypoglycemia - A1C = 5.5 on 03/02/2024 - Hypoglycemia noted the morning of 03/03. Appeared to be asymptomatic - BOARDING MOTHER called for EGD 03/06 because of hypoglycemia. Blood sugar down to 38. - Plan for colonoscopy tomorrow, colon preparation today. Discussed with gastroenterology not to follow protocol keeping the patient n.p.o. since 3 PM in the afternoon, will allow him clear liquid diet and n.p.o. after midnight. Goal to minimize chances of hypoglycemia. Hx of DVT on Warfarin Warfarin Coagulopathy - INR upon arrival was 2.23 - Holding warfarin due to GIB -Vitamin K given before EGD. INR Date Value Ref Range Status 03/08/2024 1.18 (H) 0.85 - 1.15 Final 03/18/2020 2.97 (H) 0.86 - 1.14 Final Lytic Lesion of L5 - As noted on recent CT abd pelv showing focal lytic lesion with soft tissue thickening - Possibly representing a Schmorl node - Recommend outpatient lumbar MRI with PCP. This was discussed with the patient's Aunt via phone. We discussed that sometimes this can indicate cancer. She expressed understanding. Right upper extremity swelling. Negative for DVT. Extensive superficial vein thrombosis in the cephalic vein. Unclear whether this is part of the reason for the swelling, anticoagulation is precluded given current ongoing bleeding/acute anemia. . 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 Vascular team consulted. Midline placement and in use. Chronic Medical Problems: Cognitive Impairment - Lives with Mother and Aunt (who is his SKIDDER RUNNER) Hx of CVA Legally Blind Hypertension Hyperlipidemia SHIRLEY with CPAP Aortic Stenosis Obesity - BMI 32.20 Diet: NPO per Anesthesia Guidelines for Procedure/Surgery Except for: Meds DVT Prophylaxis: Pneumatic Compression Devices. Warfarin on hold Valadez Catheter: Not present Lines: PRESENT Hemodialysis Vascular Access AV fistula Left Thigh-Site Assessment: WDL Cardiac Monitoring: None Code Status: Full Code Clinically Significant Risk Factors # Hyperkalemia: Highest K = 5.5 mmol/L in last 2 days, will monitor as appropriate # Hyponatremia: Lowest Na = 119 mmol/L in last 2 days, will monitor as appropriate # Hypoalbuminemia: Lowest albumin = 2.6 g/dL at 03/06/2024 6:54 AM, will monitor as appropriate # Coagulation Defect: INR = 1.18 (Ref range: 0.85 - 1.15) and/or PTT = N/A, will monitor for bleeding # Obesity: Estimated body mass index is 31.9 kg/m?? as calculated from the following: Height as of 02/24/24: 1.626 m (5' 4). Weight as of this encounter: 84.3 kg (185 lb 13.6 oz). Disposition Plan Medically Ready for Discharge: Anticipated in 2-4 Days Antonino Cheek MD Hospitalist Service [facility] Securely message with MashON (more info) Text page via [facility] [place] [place] Paging/Directory Interval History Patient denies chest pain or shortness of breath. Colon preparation overnight has been successful. Today Hgb 6.7, transfusing 1 PRBC unit before colonoscopy today. INR 1. 28 Will continue to follow GI recommendations. Will resume diet after procedure. Holding warfarin for now. Continue hemoglobin trend q 6 h. Hyponatremia, suspect hypervolemic hyponatremia, corrected after dialysis. Right upper extremity swelling, concerning for DVT versus extravasation versus other. Ultrasound requested. Vascular team assistance appreciated with midline placement. Appreciate Nephrology assistance with HD and electrolyte management. Cortisol 12.0 WNL. Physical Exam Vital Signs: Temp: 98.6 ??F (37 ??C) Temp src: Oral BP: (!) 153/59 Pulse: 81 Resp: 18 SpO2: 91 % [id number]: Nasal cannula Oxygen Delivery: 2 LPM Weight: 185 lbs 13.56 oz GEN: Alert, cooperative, appears comfortable, NAD. HEENT: Normocephalic/atraumatic, no scleral icterus, no nasal discharge, mouth moist. CV: Regular rate and rhythm, YARA II/ LSB. No JVD seen. S1 + S2 noted, no S3 or S4. LUNGS: Clear to auscultation bilaterally without rales/rhonchi/wheezing/retractions. Symmetric chest rise on inhalation noted. ABD: Active bowel sounds, soft, non-tender/non-distended. No rebound/guarding/rigidity. EXT: No edema or cyanosis. No joint synovitis noted. SKIN: Dry to touch, no exanthems noted in the visualized areas. Medical Decision Making 50 MINUTES SPENT BY ME on the date of service doing chart review, history, exam, documentation & further activities per the note. Data I have personally reviewed the following data over the past 24 hrs: N/A \ 6.7 (LL) / N/A 128 (L) 89 (L) 30.2 (H) / 107 (H) 4.7 26 5.58 (H) \ ALT: N/A AST: N/A AP: N/A TBILI: N/A ALB: 2.8 (L) TOT PROTEIN: N/A LIPASE: N/A INR: 1.18 (H) PTT: N/A D-dimer: N/A Fibrinogen: N/A Imaging results reviewed over the past 24 hrs: Recent Results (from the past 24 hour(s)) US Upper Extremity Venous Duplex Right Narrative EXAM: US UPPER EXTREMITY VENOUS DUPLEX RIGHT LOCATION: [facility] DATE: 03/07/2024 INDICATION: Swelling, looking for DVT [...] Vein from the proximal through distal forearm. Impression IMPRESSION: 1. No deep venous thrombosis in the right upper extremity. 2. Superficial venous thrombus within the right cephalic vein from the proximal to distal forearm. * Jayesh Drake Melissa, RN - 03/07/2024 4:55 PM CDT Potassium Date Value Ref Range Status 03/07/2024 5.5 (H) 3.4 - 5.3 mmol/L Final 01/24/2018 4.3 3.4 - 5.3 mmol/L Final Hemoglobin Date Value Ref Range Status 03/07/2024 7.8 (L) 13.3 - 17.7 g/dL Final 01/24/2018 8.2 (L) 13.3 - 17.7 g/dL Final Creatinine Date Value Ref Range Status 03/07/2024 7.68 (H) 0.67 - 1.17 mg/dL Final 01/25/2019 9.17 (H) 0.66 - 1.25 mg/dL Final Urea Nitrogen Date Value Ref Range Status 03/07/2024 55.9 (H) 8.0 - 23.0 mg/dL Final 01/24/2018 78 (H) 7 - 30 mg/dL Final Sodium Date Value Ref Range Status 03/07/2024 119 (LL) 135 - 145 mmol/L Final Comment: Reference [...] Final INR Date Value Ref Range Status 03/07/2024 1.28 (H) 0.85 - 1.15 Final 03/18/2020 2.97 (H) 0.86 - 1.14 Final DIALYSIS PROCEDURE NOTE Hepatitis status of previous patient on machine log was checked and verified ok to use with this patients hepatitis status. Assessments and Interventions: Pt is A & O to self, place and current situations. Pt is blind. Length of Tx: 3.5 hrs. K2 bath, Ca 2.5, Na 132/ Bicarb 35 Approximate net fluid removed: 2 L. BFR of 450 ml/min Blood Volume Processed (BVP): 87 L Access: LAVF (L thigh). Bruit and Thrill present. Both Arterial/Venous bulging and aspirates and flushes easily. No signs of infection noted. Needle size: 15 gauge Dialyzer rinse: light streaked. The treatment plan was discussed with Dr. Naylor during the treatment. Total heparin received: 0 units. Needle cannulation sites held x 5/5 min for both Venous and Arterial. Meds given: none Complications: none Pt educated on POC and agreeable to Dayday's prescription. ICEBOAT? Timeout performed pre-treatment I: Patient was identified using 2 identifiers C: Consent Signed Yes E: Equipment preventative maintenance is current and dialysis delivery system OK to use B: Latest Reference Range & Units 02/25/24 06:45 02/26/24 11:13 Hep B Surface Agn Nonreactive Nonreactive Hepatitis B Surface Antibody Instrument Value <8.5 m[IU]/mL >1,000.00 Hepatitis B Surface Antibody Reactive O: Dialysis orders present and complete prior to treatment A: Vascular access verified and assessed prior to treatment T: Treatment was performed at a clinically appropriate time ?: Patient was allowed to ask questions and address concerns prior to treatment Machine water alarm in place and functioning. Transducer pods intact and checked every 15min. Pt returned via W/C. Chlorine/Chloramine water system checked every 4 hours. Outpatient Dialysis at [facility] Patient repositioned every 2 hours during the treatment. Pre & Post treatment report called to Anusha Lindsey RN Please note: Please remove patient dressing on AVF and AVG needle sites 24 hours after dialysis. Ifleaking occurs please apply a Band-Aid. Melissa Newton RN * Antonino Cheek MD - 03/07/2024 4:12 PM CDT [facility] Medicine Progress Note - Hospitalist Service Date of Admission: 03/02/2024 Assessment & Plan Herminio Victor is a 58 year old male with a history of cognitive impairment, ESRD on HD (MW),history of DVT on warfarin, type 2 diabetes mellitus, legally blind, history of CVA, hypertension, hyperlipidemia, SHIRLEY with CPAP, obesity admitted on 03/02/2024 with melena. Of note, the patient was re cently hospitalized at [facility] from 02/23 to 02/25 for the treatment of acute chronic anemia with melanotic stools. On 02/24, the patient had an EGD showing small esophageal varices. Inthe emergency department, the patient was found to have a temperature of 96.9 ??F, blood pressure 124/71, heart rate 79, respiratory rate 20, SpO2 95% on room air. Initial lab work showed sodium 131,chloride 91, BUN/creatinine 25.4/3.68, albumin 3.3, glucose 194, hemoglobin 6.3, INR 2.09. The patient was transfused 1 unit of PRBCs. Gastroenterology was consulted to see the patient. Gastroenterology recommended conservative management at this time with hemoglobin checks and diet advancement. The patient's hospital course was complicated by episodes of hypoglycemia ultimately requiring D10. Problem List: Melena Small Esophageal Varices Acute Blood Loss Anemia Anemia of Chronic Kidney Disease - Appreciate GI recommendations - no plans for scope at this time. If hgb drops or melena continuesconsider colonoscopy in the OR on Tuesday or Tuesday - PPI PO BID - n.p.o. for scope today. - Last unit PRBC 03/06 - Hgb 7.4 today, - Similar presentation to the week prior and had EGD on 02/25/2024 showing small esophageal varices - Will continue hemoglobin surveillance and transfuse as needed Severe hyponatremia, suspect hypervolemic hyponatremia. Not symptomatic. Na 119 (124). Will reassess after dialysis today. Nephrology is following. ESRD on HD (MWF) - Appreciate Nephrology management of HD Type 2 Diabetes Mellitus with Hypoglycemia - A1C = 5.5 on 03/02/2024 - Hypoglycemia noted the morning of 03/03. Appeared to be asymptomatic - BOARDING MOTHER called for EGD 03/06 because of hypoglycemia. Blood sugar down to 38. - Plan for colonoscopy tomorrow, colon preparation today. Discussed with gastroenterology not to follow protocol keeping the patient n.p.o. since 3 PM in the afternoon, will allow him clear liquid diet and n.p.o. after midnight. Goal to minimize chances of hypoglycemia. Hx of DVT on Warfarin Warfarin Coagulopathy - INR upon arrival was 2.23 - Holding warfarin due to GIB -Vitamin K given before EGD. INR Date Value Ref Range Status 03/07/2024 1.28 (H) 0.85 - 1.15 Final 03/18/2020 2.97 (H) 0.86 - 1.14 Final Lytic Lesion of L5 - As noted on recent CT abd pelv showing focal lytic lesion with soft tissue thickening - Possibly representing a Schmorl node - Recommend outpatient lumbar MRI with PCP. This was discussed with the patient's Aunt via phone. We discussed that sometimes this can indicate cancer. She expressed understanding. Right upper extremity swelling. Concerning for DVT versus extravasation versus others. Ultrasound requested for further assessment. 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 Vascular team consulted for Midline placement Chronic Medical Problems: Cognitive Impairment - Lives with Mother and Aunt (who is his SKIDDER RUNNER) Hx of CVA Legally Blind Hypertension Hyperlipidemia SHIRLEY with CPAP Aortic Stenosis Obesity - BMI 32.20 Diet: NPO per Anesthesia Guidelines for Procedure/Surgery Except for: Meds DVT Prophylaxis: Pneumatic Compression Devices. Warfarin on hold Valadez Catheter: Not present Lines: PRESENT Hemodialysis Vascular Access AV fistula Left Thigh-Site Assessment: WDL Cardiac Monitoring: None Code Status: Full Code Clinically Significant Risk Factors # Hyperkalemia: Highest K = 5.5 mmol/L in last 2 days, will monitor as appropriate # Hyponatremia: Lowest Na = 119 mmol/L in last 2 days, will monitor as appropriate # Hypoalbuminemia: Lowest albumin = 2.6 g/dL at 03/06/2024 6:54 AM, will monitor as appropriate # Coagulation Defect: INR = 1.28 (Ref range: 0.85 - 1.15) and/or PTT = N/A, will monitor for bleeding # Obesity: Estimated body mass index is 31.9 kg/m?? as calculated from the following: Height as of 02/24/24: 1.626 m (5' 4). Weight as of this encounter: 84.3 kg (185 lb 13.6 oz). Disposition Plan Medically Ready for Discharge: Anticipated in 2-4 Days Antonino Cheek MD Hospitalist Service [facility] Securely message with [employer] (more info) Text page via [facility] Paging/Directory Interval History Patient denies symptoms, sleeping when I visited with him in the room. Today Hgb 7.4 after 1 PRBC unit before scope. INR 1. 28 Will continue to follow GI recommendations. Clear liquid diet until midnight then n.p.o.. Holding warfarin for now. Continue hemoglobin trend q 6 h. Worsening hyponatremia today, suspect hypervolemic hyponatremia, likely corrected after dialysis. Right upper extremity swelling, concerning for DVT versus extravasation versus other. Ultrasound requested. Vascular team to assist with midline placement. Appreciate Nephrology assistance with HD and electrolyte management. Cortisol 12.0 WNL. Physical Exam Vital Signs: Temp: 98.2 ??F (36.8 ??C) Temp src: Axillary BP: 133/52 Pulse: 71 Resp: 15 SpO2: 98 % O2 Device: Nasal cannula Oxygen Delivery: 2 LPM Weight: 185 lbs 13.56 oz GEN: Alert, cooperative, appears comfortable, NAD. HEENT: Normocephalic/atraumatic, no scleral icterus, no nasal discharge, mouth moist. CV: Regular rate and rhythm, YARA II/ LSB. No JVD seen. S1 + S2 noted, no S3 or S4. LUNGS: Clear to auscultation bilaterally without rales/rhonchi/wheezing/retractions. Symmetric chest rise on inhalation noted. ABD: Active bowel sounds, soft, non-tender/non-distended. No rebound/guarding/rigidity. EXT: No edema or cyanosis. No joint synovitis noted. SKIN: Dry to touch, no exanthems noted in the visualized areas. Medical Decision Making 50 MINUTES SPENT BY ME on the date of service doing chart review, history, exam, documentation & further activities per the note. Data I have personally reviewed the following data over the past 24 hrs: 7.4 \ 7.8 (L) / 145 (L) 119 (LL) 78 (L) 55.9 (H) / 130 (H) 5.5 (H) 25 7.68 (H) \ ALT: N/A AST: N/A AP: N/A TBILI: N/A ALB: 2.8 (L) TOT PROTEIN: N/A LIPASE: N/A INR: 1.28 (H) PTT: N/A D-dimer: N/A Fibrinogen: N/A Imaging results reviewed over the past 24 hrs: No results found for this or any previous visit (from the past 24 hour(s)). * Jose Enrique Naylor MD - 03/07/2024 11:56 AM CDT Nephrology Progress Note 03/07/2024 Assessment & Recommendations: 58 y.o man with ESRD, HTN, DM and severe anemia. # ESRD: -MWF -L upper thigh AVF, 15 g -EDW 82 kg -3.5 hrs +heparin -Dr. Holman # Anemia: GIB? -s/p one unit prbc -Mircera with HD # hyperkalemia -possibly aggravated by GI bleed. Should improve with dialysis today. -Renal diet # Hyponatremia-worse with D10 drip. # DVT: on coumadin Plan: -Dialysis today. -132 sodium bath -2-3 L ultrafiltration -Renal diet -Fluid restriction to 1200 mL daily -Venofer with HD -Will hold heparin with HD -Check renal panel in a.m.. May need to dialyze again based on serum sodium. -Encourage oral intake. Minimize D10 use as able given low sodium Jose Enrique Naylor MD [facility] - Nephrology [phone] Interval History : Seen / examined. No complaints. Awake and alert. Laying flat. No shortness of breath. EGD yesterday showed grade 1 esophageal varices and erythematous mucosa. Colonoscopy deferred due to bad prep. Plan to do it tomorrow. Noted hypoglycemic episodes requiring IV dextrose. With that serum sodium is down to 119, potassium5.5 Physical Exam: I/O last 3 completed shifts: In: 615 [I.V.:320] Out: - BP (!) 167/65 (BP Location: Right arm) Pulse 82 Temp 98 ??F (36.7 ??C) (Oral) Resp 20 Wt 84.3 kg (185 lb 13.6 oz) SpO2 100% BMI 31.90 kg/m?? GENERAL APPEARANCE: alert and no distress EYES: no scleral icterus, pupils equal PULM: lungs clear to auscultation, equal air movement, no cyanosis or clubbing CV: regular rhythm, normal rate, no rub -JVP - -edema - GI: soft, non tender, NEURO: mentation intact and speech normal, no asterixis Access - Lt thigh AVF with good bruit and thrill Labs: All labs reviewed by il Electrolytes/Renal - Recent Labs Lab Test 03/07/24 1130 03/07/24 0849 03/07/24 0621 03/06/24 1837 03/06/24 1628 03/06/24 0757 03/06/24 0654 03/02/24 1356 02/26/24 0610 NA -- -- 119* -- 121* -- 124* < > 128* POTASSIUM -- -- 5.5* -- 5.1 -- 4.5 < > 5.1 CHLORIDE -- -- 78* -- 82* -- 83* < > 89* CO2 -- -- 25 -- 24 -- 27 < > 26 BUN -- -- 55.9* -- 50.9* -- 47.9* < > 60.3* CR -- -- 7.68* -- 6.65* -- 5.98* < > 6.69* GLC 130* 77 92 < > 196* 196* < > 89 < > 103* JON -- -- 7.3* -- 7.1* -- 7.6* < > 7.9* PHOS -- -- 5.7* -- -- -- 4.8* -- 4.0 < > = values in this interval not displayed. CBC - Recent Labs Lab Test 03/07/24 0621 03/07/24 0104 03/06/24 1628 03/05/24 1212 03/05/24 0735 03/04/24 1829 03/04/24 0645 WBC -- -- 7.4 -- 8.6 -- 6.7 HGB 7.8* 7.6* 7.4* 7.4* < > 7.1* 7.1* < > 7.1* 7.1* PLT -- -- 145* -- 162 -- 152 < > = values in this interval not displayed. LFTs - Recent Labs Lab Test 03/07/24 0621 03/06/24 0654 03/05/24 0735 03/04/24 0645 03/02/24 1356 ALKPHOS -- -- 76 61 73 BILITOTAL -- -- 0.4 0.5 0.2 ALT -- -- AST -- -- PROTTOTAL -- -- 5.4* 5.5* 6.4 ALBUMIN 2.8* 2.6* 2.7* 2.9* 3.3* Iron Panel - Recent Labs Lab Test 02/26/24 0610 IRON 38* IRONSAT 28 NANNETTE 1,463* Current Medications: Current Facility-Administered Medications Medication Dose Route Frequency Provider Last Rate Last Admin - MEDICATION INSTRUCTIONS for Dialysis Patients - Does not apply See Admin Instructions Eileen Earl MD amLODIPine (NORVASC) tablet 5 mg 5 mg Oral Daily Eileen Earl MD 5 mg at 03/06/24 1003 atorvastatin (LIPITOR) tablet 20 mg 20 mg Oral QPM Eileen Earl MD 20 mg at 03/06/24 1914 calcium acetate (PHOSLO) capsule 667 mg 667 mg Oral TID w/meals Eileen Earl MD 667 mg at 03/07/24 0931 insulin aspart (NovoLOG) injection (RAPID ACTING) 1-4 Units Subcutaneous Q4H Antonino Cheek MD metoprolol tartrate (LOPRESSOR) tablet 100 mg 100 mg Oral QAM Eileen Earl MD 100 mg at 03/06/24 1003 multivitamin RENAL (TRIPHROCAPS) capsule Oral QPM Eileen Earl MD 1 mg at 03/06/24 1914 pantoprazole (PROTONIX) EC tablet 40 mg 40 mg Oral BID AC Eileen Earl MD 40 mg at 931 polyethylene glycol (GoLYTELY) suspension 4,000 mL 4,000 mL Oral Once Mackenzie Cheek PA-C sennosides (SENOKOT) tablet 2 tablet 2 tablet Oral Every Other Day Eileen Earl MD 2 tabletat 03/04/24 0900 sodium chloride (PF) 0.9% PF flush 3 mL 3 mL Intracatheter Q8H Eileen Earl MD Current Facility-Administered Medications Medication Dose Route Frequency Provider Last Rate Last Admin dextrose 10% infusion Intravenous Continuous Eileen Earl MD Stopped at 03/07/24 0542 sodium chloride 0.9 % infusion Intravenous Continuous Eileen Earl MD 10 mL/hr at 03/06/24 1252 New Bag at 03/06/24 1252 Jose Enrique Naylor MD * Mackenzie Cheek PA-C - 03/07/2024 10:56 AM CDT Images from the original note were not included. GASTROENTEROLOGY PROGRESS NOTE SUBJECTIVE: Feeling well this morning. He was able to eat breakfast. He had been hypoglycemic in PACU after EGD yesterday. Patient willing to complete colonoscopy prep this afternoon. OBJECTIVE: BP 137/63 (BP Location: Left arm) Pulse 79 Temp 97.5 ??F (36.4 ??C) (Axillary) Resp 18 Wt 84.3 kg (185 lb 13.6 oz) SpO2 96% BMI 31.90 kg/m?? Temp (24hrs), Av.6 ??F (36.4 ??C), Min:96.8 ??F (36 ??C), Max:98.2 ??F (36.8 ??C) Patient Vitals for the past 72 hrs: Weight 03/05/24 1730 84.3 kg (185 lb 13.6 oz) Intake/Output Summary (Last 24 hours) at 03/07/2024 1057 Last data filed at 03/06/2024 1427 Gross per 24 hour Intake 495 ml Output -- Net 495 ml PHYSICAL EXAM Constitutional: NAD Abdomen: soft, non tender Additional Comments: ROS, FH, SH: See initial GI consult for details. I have reviewed the patient's new clinical lab results: Recent Labs Lab Test 03/07/24 0621 03/07/24 0104 03/06/24 1628 03/06/24 1323 03/06/24 0654 03/05/24 1212 03/05/24 0735 03/04/24 1829 03/04/24 0645 WBC -- -- 7.4 -- -- -- 8.6 -- 6.7 HGB 7.8* 7.6* 7.4* 7.4* < > 7.0* < > 7.1* 7.1* < > 7.1* 7.1* MCV -- -- 88 -- -- -- 90 -- 91 PLT -- -- 145* -- -- -- 162 -- 152 INR 1.28* -- -- -- 1.51* -- 2.20* -- -- < > = values in this interval not displayed. Recent Labs Lab Test 03/07/24 0621 03/06/24 1628 03/06/24 0654 POTASSIUM 5.5* 5.1 4.5 CHLORIDE 78* 82* 83* CO2 BUN 55.9* 50.9* 47.9* ANIONGAP 16* 15 14 Recent Labs Lab Test 03/07/24 0621 03/06/24 0654 03/05/24 0735 03/04/24 0645 03/02/24 1356 ALBUMIN 2.8* 2.6* 2.7* 2.9* 3.3* BILITOTAL -- -- 0.4 0.5 0.2 ALT -- -- AST -- -- ENDOSCOPY 03/06/2024 EGD Findings: Grade I varices were found in the lower third of the esophagus. Z line 41 cm. Localized moderately erythematous mucosa without bleeding was found on the greater curvature of the stomach. The examined duodenum was normal. Impression: - Grade I esophageal varices. - Erythematous mucosa in the greater curvature. - Normal examined duodenum. - No specimens collected. Recommendation: Mid gastric inflamed folds not present two weeks ago, may be cause of anemia. Possibly from vomiting. Less likely portal hypertensive gastropathy. Solid stool noted in diaper so colonoscopy not performed. ASSESSMENT/ PLAN Herminio Victor is a 58 yo male with a history of cognitive impairment, ESRD on HD (MWF), history of DVT on warfarin, type 2 diabetes mellitus, legally blind, history of CVA, hypertension, obesity admitted on 03/02/2024 with melena. 1. Anemia : suspect subacute to chronic, normal +iron sat, low TIBC, normal MCV. Hgb today 7.8. EGDyesterday with grade I esophageal varices, and gastric erythema. -- Plan for colonoscopy tomorrow with prep to start at 1500 today -- PPI BID 2. ESRD on dialysis 3. Developmental delay/cognitive impairment 4. Coumadin anticoagulation, h/o DVT Total time: 45 minutes of total time was spent providing patient care, including patient evaluation, reviewing documentation/test results, and order analyst. Discussed with Dr. Janette Cheek PA-C [facility] ( [facility]) * Byron Camarillo RN - 03/07/2024 5:51 AM CDT Messaged MD:JEAN, Dextrose 10%/IVF stopped. Pt's right arm (Forearm) near IV site appears to be swollen. He states there is no pain or numbness. * Antonino Cheek MD - 03/06/2024 4:33 PM CDT Rapid response called. After the patient arrived back to the unit, blood sugar was very low, around 30 from capillary blood. He had been hypoglycemic in PACU after EGD, he had already been treated there. Patient was not diaphoretic or tachycardic, able to answer questions yes or not, denying pain or other symptoms. .Vital signs: Temp: 97.7 ??F (36.5 ??C) Temp src: Oral BP: (!) 155/53 Pulse: 73 Resp: 18 SpO2: 100 % O2 Device: Nasal cannula Oxygen Delivery: 3 LPM Weight: 84.3 kg (185 lb 13.6 oz) Estimated body mass index is 31.9 kg/m?? as calculated from the following: Height as of 02/24/24: 1.626 m (5' 4). Weight as of this encounter: 84.3 kg (185 lb 13.6 oz). D50 has been delivered IV per protocol. Blood drawn and CBC, BMP and whole blood glucose requested. Patient had been n.p.o. after midnight for EGD, procedure was not started until noon time today. Heseems to have brittle diabetes. In the preceding days he also had hypoglycemia episodes. Will continue tracking hemoglobin and transfuse as needed, I will order diet. Patient is due for dialysis tomorrow. [facility] unable to complete colonoscopy today due to lack of preparation. I will discuss with them the convenience to wait 1 more day before colonoscopy. * Megan Salazar - 03/06/2024 4:20 PM CDT [facility] Progress Note MS 5 Responded to patient's room regarding overhead Adult Rapid Response CODE. Patient receiving cares. No family present. SHS not needed. SHS remains available. Rev. Ladan HameedDiv. Staff Horse Rider * Janine rIvin RN - 03/06/2024 3:35 PM CDT Notified MD at 1535 PM regarding low BG in PACU . BG 63, pt asymptomatic. Pt given 240cc apple juice, he wanted more so was given additional 240cc. BG recheck 64 Spoke with: Dr Skinner Orders were not obtained. Comments: no new orders. Ok to go back to room * Heidy Cormier RN - 03/06/2024 1:08 PM CDT Aunt Thelma was informed by provider Dr. Earl of patient's procedure and risks and benefits that go along with it. Thelma verbalized understanding of plan today. Thelma gave verbal consent for Herminio Victor to have his procedure performed today with Heidy Cormier RN as witness to telephone consent. Paper consent completed. Heidy Cormier RN on 03/06/2024 at 1:09 PM * Jose Enrique Naylor MD - 03/06/2024 12:23 PM CDT Patient off the floor for endoscopy Dialysis yesterday with 0.9 L removed. Sodium improved to 124. Continues on D10 drip with good blood sugars. Plan to dialyze tomorrow against 2 L ultrafiltration as tolerated. Minimize D10 use as able. Jose Enrique Naylor MD [facility] - Nephrology [phone] * Antonino Cheek MD - 03/06/2024 7:30 AM CDT [facility] Medicine Progress Note - Hospitalist Service Date of Admission: 03/02/2024 Assessment & Plan Herminio Victor is a 58 year old male with a history of cognitive impairment, ESRD on HD (MWF),history of DVT on warfarin, type 2 diabetes mellitus, legally blind, history of CVA, hypertension, hyperlipidemia, SHIRLEY with CPAP, obesity admitted on 03/02/2024 with melena. Of note, the patient was re cently hospitalized at [facility] from 02/23 to 02/25 for the treatment of acute chronic anemia with melanotic stools. On 02/24, the patient had an EGD showing small esophageal varices. Inthe emergency department, the patient was found to have a temperature of 96.9 ??F, blood pressure 124/71, heart rate 79, respiratory rate 20, SpO2 95% on room air. Initial lab work showed sodium 131,chloride 91, BUN/creatinine 25.4/3.68, albumin 3.3, glucose 194, hemoglobin 6.3, INR 2.09. The patient was transfused 1 unit of PRBCs. Gastroenterology was consulted to see the patient. Gastroenterology recommended conservative management at this time with hemoglobin checks and diet advancement. The patient's hospital course was complicated by episodes of hypoglycemia ultimately requiring D10. Problem List: Melena Small Esophageal Varices Acute Blood Loss Anemia Anemia of Chronic Kidney Disease - Appreciate GI recommendations - no plans for scope at this time. If hgb drops or melena continuesconsider colonoscopy in the OR on Tuesday or Tuesday - PPI PO BID - n.p.o. for scope today. - 1 unit PRBC 03/05 - Hgb 7.0 today, active bleeding - Will transfuse stat before scope - Similar presentation to the week prior and had EGD on 02/25/2024 showing small esophageal varices Severe hyponatremia, suspect hypervolemic hyponatremia. Not symptomatic. Na 124 (118) after dialysis. Nephrology is following. ESRD on HD (MWF) - Appreciate Nephrology management of HD Type 2 Diabetes Mellitus with Hypoglycemia - A1C = 5.5 on 03/02/2024 - Hypoglycemia noted the morning of 03/03. Appeared to be asymptomatic Hx of DVT on Warfarin Warfarin Coagulopathy - INR upon arrival was 2.23 - Holding warfarin due to GIB Lytic Lesion of L5 - As noted on recent CT abd pelv showing focal lytic lesion with soft tissue thickening - Possibly representing a Schmorl node - Recommend outpatient lumbar MRI with PCP. This was discussed with the patient's Aunt via phone. We discussed that sometimes this can indicate cancer. She expressed understanding. Chronic Medical Problems: Cognitive Impairment - Lives with Mother and Aunt (who is his [employer]DER [employer]NER) Hx of CVA Legally Blind Hypertension Hyperlipidemia SHIRLEY with CPAP Aortic Stenosis Obesity - BMI 32.20 Diet: Clear Liquid Diet DVT Prophylaxis: Pneumatic Compression Devices. Warfarin on hold Valadez Catheter: Not present Lines: None Cardiac Monitoring: None Code Status: Full Code Clinically Significant Risk Factors # Hyperkalemia: Highest K = 6 mmol/L in last 2 days, will monitor as appropriate # Hyponatremia: Lowest Na = 116 mmol/L in last 2 days, will monitor as appropriate # Hypoalbuminemia: Lowest albumin = 2.7 g/dL at 03/05/2024 7:35 AM, will monitor as appropriate # Coagulation Defect: INR = 1.51 (Ref range: 0.85 - 1.15) and/or PTT = N/A, will monitor for bleeding # Obesity: Estimated body mass index is 31.9 kg/m?? as calculated from the following: Height as of 02/24/24: 1.626 m (5' 4). Weight as of this encounter: 84.3 kg (185 lb 13.6 oz)., PRESENT ON ADMISSION Disposition Plan Medically Ready for Discharge: Anticipated in 2-4 Days Antonino Cheek MD Hospitalist Service [facility] Securely message with [employer] (more info) Text page via [facility] – OKLAH[place] CITYChatous Paging/Directory Interval History Patient denies symptoms but dropping hgb. Today Hgb 7.0 after transf yst. I am ordering 1 PRBC unitbefore scope. INR 1.51 Will continue to follow GI recommendations. N.p.o.. Holding warfarin for now. Continue to trend q 6h. Improving hyponatremia today, suspect hypervolemic hyponatremia. Appreciate Nephrology assistance with HD and electrolyte management. Cortisol 12.0 WNL. Physical Exam Vital Signs: Temp: 98.6 ??F (37 ??C) Temp src: Oral BP: (!) 176/64 Pulse: 89 Resp: 18 SpO2: 98 % [id number]: BiPAP/CPAP Weight: 185 lbs 13.56 oz GEN: Alert, cooperative, appears comfortable, NAD. HEENT: Normocephalic/atraumatic, no scleral icterus, no nasal discharge, mouth moist. CV: Regular rate and rhythm, YARA II/ LSB. No JVD seen. S1 + S2 noted, no S3 or S4. LUNGS: Clear to auscultation bilaterally without rales/rhonchi/wheezing/retractions. Symmetric chest rise on inhalation noted. ABD: Active bowel sounds, soft, non-tender/non-distended. No rebound/guarding/rigidity. EXT: No edema or cyanosis. No joint synovitis noted. SKIN: Dry to touch, no exanthems noted in the visualized areas. Medical Decision Making 50 MINUTES SPENT BY ME on the date of service doing chart review, history, exam, documentation & further activities per the note. Data I have personally reviewed the following data over the past 24 hrs: 8.6 \ 7.0 (L) / 162 116 (LL) 79 (L) 81.7 (H) / 90 6.0 (H) 19 (L) 8.51 (H) \ ALT: 15 AST: 22 AP: 76 TBILI: 0.4 ALB: 2.7 (L) TOT PROTEIN: 5.4 (L) LIPASE: N/A INR: 1.51 (H) PTT: N/A D-dimer: N/A Fibrinogen: N/A Imaging results reviewed over the past 24 hrs: No results found for this or any previous visit (from the past 24 hour(s)). * Graham Enciso, RT - 03/06/2024 12:52 AM CDT A CPAP of 5-15 @ 21% was applied to the pt via the mask for NOC use. The bridge of the nose looks good and remains intact. Pt is tolerating it well. Will continue to monitor and assess the pt's current respiratory status and needs. RT Audrey on 03/06/2024 at 12:52 AM * Mo Garvin RN - 03/05/2024 4:38 PM CDT HEMODIALYSIS TREATMENT NOTE Date: 03/05/2024 Time: 4:38 PM Data: Weight change: 0.9 kg Ultrafiltration - Post Run Net Total Removed (mL): 900 mL Vascular Access Status: Fistula patent Dialyzer Rinse: Streaked Total Blood Volume Processed: 80.6 L Total Dialysis (Treatment) Time: 3 hrs Dialysate Bath: K 2, Ca 2.5 Heparin: None Hepatitis Status: Neg/Imm on 02/26/24. Lab: No Interventions: Set UF goal to 3 L. Cannulation of L thight AVF with 15 ga needles, no lidocaine. Excellent flow. Venofer given. Rcv'd one (1) unit PRBC while on the run. With 1:30 left in the run, pt had large, projectile emesis onto his chest. No notification of nausea. Cleaned up. Came off the run 30 min early r/t not feeling well. Tolerated run well. Stasis in AVF in 5 minutes, dsg applied. Assessment: Arrived by w/c to dialysis room. Oriented to space. Pt is blind. Denied pain. L thigh AVF +T&B. Plan: Next run per nephro. LUIS MolinaN, RN * Paul Rasmussen MD - 03/05/2024 2:52 PM CDT GI chart check: Reviewed chart. Again Hb trend noted. INR 2.2 today vs 2.23 on 03/03. Suggest vitamin K dose today, recheck INR AM, goal < 1.8 for procedure. - Recommend EGD and Colonoscopy in the OR tomorrow (see my note from yesterday for details). - PRBC as needed. - Bowel Prep ordered. - Hold coumadin. Paged to Dr. Cheek. Paul Rasmussen MD [facility] * Jose Enrique Naylor MD - 03/05/2024 11:47 AM CDT Nephrology Progress Note 03/05/2024 Assessment & Recommendations: 58 y.o man with ESRD, HTN, DM and severe anemia. # ESRD: -MWF -L upper thigh AVF, 15 g -EDW 82 kg -3.5 hrs +heparin -Dr. Holman # Anemia: GIB? -s/p one unit prbc -Mircera with HD # hyperkalemia -possibly aggravated by GI bleed. Should improve with dialysis today. -Renal diet # Hyponatremia-worse with D10 drip. # DVT: on coumadin Plan: -Dialysis today. -130 sodium bath -2-3 L ultrafiltration -Renal diet -Fluid restriction to 1200 mL daily -Venofer with HD -Will hold heparin with HD -Check renal panel in a.m. -Encourage oral intake. Minimize D10 use as able given low sodium Jose Enrique Naylor MD [facility] - Nephrology [phone] Interval History : Seen / examined. Appears comfortable. No shortness of breath. Blood pressure on the higher side. Awaiting dialysis. Potassium up to 6. Sodium down to 116 on D10 drip Due to low blood glucose. Physical Exam: I/O last 3 completed shifts: In: 480 [P.O.:480] Out: - BP (!) 163/59 (BP Location: Right arm) Pulse 70 Temp 97.3 ??F (36.3 ??C) (Axillary) Resp 16 Wt 85.1 kg (187 lb 9.8 oz) SpO2 96% BMI 32.20 kg/m?? GENERAL APPEARANCE: alert and no distress EYES: no scleral icterus, pupils equal PULM: lungs clear to auscultation, equal air movement, no cyanosis or clubbing CV: regular rhythm, normal rate, no rub -JVP - -edema - GI: soft, non tender, NEURO: mentation intact and speech normal, no asterixis Access - Lt thigh AVF with good bruit and thrill Labs: All labs reviewed by il Electrolytes/Renal - Recent Labs Lab Test 03/05/24 0758 03/05/24 0735 03/05/24 0409 03/04/24 2034 03/04/24 1829 03/04/24 0703 03/04/24 0645 03/03/24 1030 03/03/24 0610 03/02/24 1356 02/26/24 0610 NA -- 116* -- -- -- -- 125* -- 132* < > 128* POTASSIUM -- 6.0* -- -- 5.6* -- 5.7* -- 4.3 < > 5.1 CHLORIDE -- 79* -- -- -- -- 87* -- 93* < > 89* CO2 -- 19* -- -- -- -- 22 -- 27 < > 26 BUN -- 81.7* -- -- -- -- 61.1* -- 35.9* < > 60.3* CR -- 8.51* -- -- -- -- 7.41* -- 5.63* < > 6.69* GLC 83 88 107* < > -- < > 81 < > 138* < > 103* JON -- 7.8* -- -- -- -- 8.2* -- 8.2* < > 7.9* PHOS -- -- -- -- -- -- -- -- -- -- 4.0 < > = values in this interval not displayed. CBC - Recent Labs Lab Test 03/05/24 0735 03/04/24 1829 03/04/24 0645 03/03/24 1407 03/03/24 0610 WBC 8.6 -- 6.7 -- 5.5 HGB 7.1* 7.1* 7.7* 7.1* 7.1* < > 7.1* 7.1* PLT 162 -- 152 -- 131* < > = values in this interval not displayed. LFTs - Recent Labs Lab Test 03/05/24 0735 03/04/24 0645 03/02/24 1356 ALKPHOS 76 61 73 BILITOTAL 0.4 0.5 0.2 ALT 15 19 25 AST 22 28 25 PROTTOTAL 5.4* 5.5* 6.4 ALBUMIN 2.7* 2.9* 3.3* Iron Panel - Recent Labs Lab Test 02/26/24 0610 IRON 38* IRONSAT 28 NANNETTE 1,463* Current Medications: Current Facility-Administered Medications Medication Dose Route Frequency Provider Last Rate Last Admin - MEDICATION INSTRUCTIONS for Dialysis Patients - Does not apply See Admin Instructions Aashish Romero DO amLODIPine (NORVASC) tablet 5 mg 5 mg Oral Daily Aashish Romero DO 5 mg at 03/04/24 1054 atorvastatin (LIPITOR) tablet 20 mg 20 mg Oral QPM Ron Tripathi MD 20 mg at 03/04/242117 calcium acetate (PHOSLO) capsule 667 mg 667 mg Oral TID w/meals Ron Tripathi MD 667 mg at 821 [Held by provider] insulin aspart (NovoLOG) injection (RAPID ACTING) 1-4 Units Subcutaneous Q4H Ron Tripathi MD iron sucrose (VENOFER) injection 100 mg 100 mg Intravenous Once in dialysis/CRRT Job Her MD metoprolol tartrate (LOPRESSOR) tablet 100 mg 100 mg Oral QAM Ron Tripathi MD 100 mg at 03/04/24 0900 multivitamin RENAL (TRIPHROCAPS) capsule Oral QPM Ron Tripathi MD 1 mg at 03/04/242117 No heparin via hemodialysis machine Does not apply Once Job Her MD pantoprazole (PROTONIX) EC tablet 40 mg 40 mg Oral BID AC Aashish Romero DO 40 mg at 03/05/24 0821 sennosides (SENOKOT) tablet 2 tablet 2 tablet Oral Every Other Day Ron Tripathi MD 2 tablet at 03/04/24 0900 sodium chloride (PF) 0.9% PF flush 3 mL 3 mL Intracatheter Q8H Ron Tripathi MD 3 mL at 03/03/24 0914 sodium chloride 0.9% BOLUS 250 mL 250 mL Intravenous Once in dialysis/CRRT Job Her MD sodium chloride 0.9% BOLUS 300 mL 300 mL Hemodialysis Machine Once Job Her MD Current Facility-Administered Medications Medication Dose Route Frequency Provider Last Rate Last Admin dextrose 10% infusion Intravenous Continuous Aashish Romero DO 40 mL/hr at 03/05/24 0824 NewBag at 03/05/24 0824 Stop Heparin 60 minutes before end of treatment Does not apply Continuous PRN Job Her MD Jiwan Thapa, MD * Antonino Cheek MD - 03/05/2024 8:[address] [facility] Medicine Progress Note - Hospitalist Service Date of Admission: 03/02/2024 Assessment & Plan Herminio Victor is a 58 year old male with a history of cognitive impairment, ESRD on HD (MWF),history of DVT on warfarin, type 2 diabetes mellitus, legally blind, history of CVA, hypertension, hyperlipidemia, SHIRLEY with CPAP, obesity admitted on 03/02/2024 with melena. Of note, the patient was re cently hospitalized at [facility] from 02/23 to 02/25 for the treatment of acute chronic anemia with melanotic stools. On 02/24, the patient had an EGD showing small esophageal varices. Inthe emergency department, the patient was found to have a temperature of 96.9 ??F, blood pressure 124/71, heart rate 79, respiratory rate 20, SpO2 95% on room air. Initial lab work showed sodium 131,chloride 91, BUN/creatinine 25.4/3.68, albumin 3.3, glucose 194, hemoglobin 6.3, INR 2.09. The patient was transfused 1 unit of PRBCs. Gastroenterology was consulted to see the patient. Gastroenterology recommended conservative management at this time with hemoglobin checks and diet advancement. The patient's hospital course was complicated by episodes of hypoglycemia ultimately requiring D10. Problem List: Melena Small Esophageal Varices Acute Blood Loss Anemia Anemia of Chronic Kidney Disease - Appreciate GI recommendations - no plans for scope at this time. If hgb drops or melena continuesconsider colonoscopy in the OR on Tuesday or Tuesday - PPI PO BID - Clear liquid diet, n.p.o. after midnight. Advance to full liquid diet this afternoon if no signs of bleeding - s/p 1 unit PRBC in the ED - Hgb 6.9 today - Transfuse for hgb less than 7 - Similar presentation to the week prior and had EGD on 02/25/2024 showing small esophageal varices Severe hyponatremia, suspect hypervolemic hyponatremia. Not symptomatic. He will have dialysis today, nephrology will assist with electrolyte derangement. I will recheck serology in afternoon after dialysis. ESRD on HD (MWF) - Appreciate Nephrology management of HD Type 2 Diabetes Mellitus with Hypoglycemia - A1C = 5.5 on 03/02/2024 - Hypoglycemia noted the morning of 03/03. Appeared to be asymptomatic - Started D10 and would discontinue if BS above 200 - Discussed discussed that with pharmacist the convenience to order a anam system that will allow the daughter to track glycemia and help with insulin dosing and corrections. This would be ideal, and a discussion with insurance will take place tomorrow, if declined and willgo to the traditional finger poke 4 times a day Hx of DVT on Warfarin Warfarin Coagulopathy - INR upon arrival was 2.23 - Holding warfarin due to GIB Lytic Lesion of L5 - As noted on recent CT abd pelv showing focal lytic lesion with soft tissue thickening - Possibly representing a Schmorl node - Recommend outpatient lumbar MRI with PCP. This was discussed with the patient's Aunt via phone. We discussed that sometimes this can indicate cancer. She expressed understanding. Chronic Medical Problems: Cognitive Impairment - Lives with Mother and Aunt (who is his SK[employer]DER RUNNER) Hx of CVA Legally Blind Hypertension Hyperlipidemia SHIRLEY with CPAP Aortic Stenosis Obesity - BMI 32.20 Diet: Moderate Consistent Carb (60 g CHO per Meal) Diet DVT Prophylaxis: Pneumatic Compression Devices. Warfarin on hold Valadez Catheter: Not present Lines: None Cardiac Monitoring: None Code Status: Full Code Clinically Significant Risk Factors # Hyperkalemia: Highest K = 5.7 mmol/L in last 2 days, will monitor as appropriate # Hyponatremia: Lowest Na = 125 mmol/L in last 2 days, will monitor as appropriate # Hypoalbuminemia: Lowest albumin = 2.9 g/dL at 03/04/2024 6:45 AM, will monitor as appropriate # Coagulation Defect: INR = 2.20 (Ref range: 0.85 - 1.15) and/or PTT = N/A, will monitor for bleeding # Obesity: Estimated body mass index is 32.2 kg/m?? as calculated from the following: Height as of 02/24/24: 1.626 m (5' 4). Weight as of this encounter: 85.1 kg (187 lb 9.8 oz)., PRESENT ON ADMISSION Disposition Plan Medically Ready for Discharge: Anticipated in 2-4 Days Antonino Cheek MD Hospitalist Service [facility] Securely message with MashON (more info) Text page via [facility] Paging/Directory Interval History Patient is not significantly symptomatic today, a.m. hemoglobin 7.1, a second check at noon time equals 6.9. He will be receiving 1 PRBC per plan. Will continue to follow GI recommendations. Clear liquid diet with intention of scope tomorrow, n.p.o. after midnight. Holding warfarin for now. Continue to trend q 6 h. Notable hyponatremia today, suspect hypervolemic hyponatremia. Appreciate Nephrology assistance with HD and electrolyte management. AM cortisol pending. Family brought lunch from the restaurant. Updated by me at bedside.69 Physical Exam Vital Signs: Temp: 97.3 ??F (36.3 ??C) Temp src: Axillary BP: (!) 163/59 Pulse: 70 Resp: 16 SpO2: 96 % O2 Device: BiPAP/CPAP Weight: 187 lbs 9.78 oz GEN: Alert, cooperative, appears comfortable, NAD. HEENT: Normocephalic/atraumatic, no scleral [...] in the visualized areas. Medical Decision Making 48 MINUTES SPENT BY ME on the date of service doing chart review, history, exam, documentation & further activities per the note. Data I have personally reviewed the following data over the past 24 hrs: 8.6 \ 6.9 (LL) / 162 116 (LL) 79 (L) 81.7 (H) / 107 (H) 6.0 (H) 19 (L) 8.51 (H) \ ALT: 15 AST: 22 AP: 76 TBILI: 0.4 ALB: 2.7 (L) TOT PROTEIN: 5.4 (L) LIPASE: N/A INR: 2.20 (H) PTT: N/A D-dimer: N/A Fibrinogen: N/A Imaging results reviewed over the past 24 hrs: No results found for this or any previous visit (from the past 24 hour(s)). * Graham Enciso RT - 03/04/2024 11:21 PM CDT A CPAP of 5-15 @ 21% was applied to the pt via the mask for NOC use. The bridge of the nose looks good and remains intact. Pt is tolerating it well. Will continue to monitor and assess the pt's current respiratory status and needs. RT Audrey on 03/04/2024 at 11:21 PM * Paul Rasmussen MD - 03/04/2024 3:52 PM CDT Images from the original note were not included. GASTROENTEROLOGY PROGRESS NOTE IMPRESSION: #1 Anemia, suspect subacute to chronic, normal +iron sat, low TIBC, normal MCV #2 ESRD on dialysis #3 Developmental delay/cognitive impairment #4 Coumadin anticoagulation, h/o DVT #5 IDDM Hb stable, No overt bleeding. Clinical assessment difficult with his cognitive status. No clear portal hypertension/liver disease/splenomegaly on recent CT. However, pt needs to resume coumadin at some point. Last EGD last week with small varices, also on CT with small varicosities in the lower esophagus and ant abd without clear recanalization of umbilical vein or any shunts noted to suggest portal hypertension. To get more definitive GI evaluation, I recommend EGD and colonoscopy. Pt will need anesthesia (risk of aspiration, last EGD to stomach full of food), so needs to be scheduled for 03/06. RECOMMENDATIONS: OK to advance diet today. Clear tomorrow, and bowel prep tomorrow, NPO after midnight tomorrow night for EGD/Colonoscopy in OR 03/06. Hold coumadin for now. Recheck INR tomorrow AM. Paul Rasmussen MD [facility] [phone] SUBJECTIVE: Denies pain or new symptoms OBJECTIVE: BP 138/52 (BP Location: Left arm) Pulse 78 Temp 98.3 ??F (36.8 ??C) (Oral) Resp 16 Wt 85.1 kg (187 lb 9.8 oz) SpO2 100% BMI 32.20 kg/m?? Temp (24hrs), Av.2 ??F (36.8 ??C), Min:97.9 ??F (36.6 ??C), Max:98.4 ??F (36.9 ??C) Patient Vitals for the past 72 hrs: Weight 03/02/24 1901 85.1 kg (187 lb 9.8 oz) PHYSICAL EXAM GEN: No acute distress. Psych: Cognitive impairment. Abd: No caput vessels, no hepatosplenomegaly. Additional Data: I have reviewed the patient's new clinical lab results: Recent Labs Lab Test 03/04/24 0645 03/03/24 2140 03/03/24 1407 03/03/24 0610 03/02/24 2217 03/02/24 1356 02/26/24 0949 WBC 6.7 -- -- 5.5 -- 5.0 -- HGB 7.1* 7.1* 7.2* 7.6* 7.1* 7.1* < > 6.3* -- MCV 91 -- -- 93 -- 95 -- PLT 152 -- -- 131* -- 165 -- INR -- -- -- 2.23* -- 2.09* 1.27* < > = values in this interval not displayed. Recent Labs Lab Test 03/04/24 1512 03/04/24 1346 03/04/24 1309 03/04/24 0703 03/04/24 0645 03/03/24 1030 03/03/24 0610 03/02/24 1945 03/02/24 1356 NA -- -- -- -- 125* -- 132* -- 131* POTASSIUM -- -- -- -- 5.7* -- 4.3 -- 4.0 CHLORIDE -- -- -- -- 87* -- 93* -- 91* CO2 -- -- -- -- 22 -- 27 -- 27 BUN -- -- -- -- 61.1* -- 35.9* -- 25.4* CR -- -- -- -- 7.41* -- 5.63* -- 3.68* ANIONGAP -- -- -- -- 16* -- 12 -- 13 JON -- -- -- -- 8.2* -- 8.2* -- 8.3* GLC 96 86 67* < > 81 < > 138* < > 194* < > = values in this interval not displayed. Recent Labs Lab Test 03/04/24 0645 03/02/24 1356 02/26/24 0610 02/24/24 0958 ALBUMIN 2.9* 3.3* 3.3* 3.6 BILITOTAL 0.5 0.2 -- 0.5 ALT 19 25 -- 21 AST 28 25 -- 21 Total time: 45 minutes, at least 50% time spent in coordination of care, counseling, and discussions with pt/family/team members. * Aashish Romero DO - 03/04/2024 10:[address] [facility] Hospitalist Progress Note Name: Herminio Victor Provider: Aashish Romero DO Date of Service: 03/04/2024 Summary of Stay: Herminio Victor is a 58 year old male with a history of cognitive impairment, ESRD on HD (MWF), history of DVT on warfarin, type 2 diabetes mellitus, legally blind, history of CVA, hypertension, hyperlipidemia, SHIRLEY with CPAP, obesity admitted on 03/02/2024 with melena. Of note, the patient was recently hospitalized at [facility] from 02/23 to 02/25 for the treatment of acute chronic anemia with melanotic stools. On 02/24, the patient had an EGD showing small esophageal varices. In the emergency department, the patient was found to have a temperature of 96.9 ??F,blood pressure 124/71, heart rate 79, respiratory rate 20, SpO2 95% on room air. Initial lab work showed sodium 131, chloride 91, BUN/creatinine 25.4/3.68, albumin 3.3, glucose 194, hemoglobin 6.3, INR 2.09. The patient was transfused 1 unit of PRBCs. Gastroenterology was consulted to see the patient. Gastroenterology recommended conservative management at this time with hemoglobin checks and diet advancement. The patient's hospital course was complicated by episodes of hypoglycemia ultimately requiring D10. TODAY'S PLAN: Appreciate GI recommendations. No BM overnight per report. Clear liquid diet this morning. Could consider full liquid later today. Holding warfarin for now. Hgb stable. Continue to trend q12h for now. If hgb drops or melena continues could pursue colonoscopy on Tuesday or Tuesday. Appreciate Nephrology assistance with HD tomorrow. Pt still hypoglycemic on D10. AM cortisol pending.Hoping this improves with food today. Updated Aunt and SKIDDER RUNNER Thelma via phone. All questions answered. Problem List: Melena Small Esophageal Varices Acute Blood Loss Anemia Anemia of Chronic Kidney Disease - Appreciate GI recommendations - no plans for scope at this time. If hgb drops or melena continuesconsider colonoscopy in the OR on Tuesday or Tuesday - PPI PO BID - Clear liquid diet this morning. Advance to full liquid diet this afternoon if no signs of bleeding - s/p 1 unit PRBC in the ED - Hgb q12 - Transfuse for hgb less than 7 - Similar presentation to the week prior and had EGD on 02/25/2024 showing small esophageal varices ESRD on HD ([facility]) - Appreciate Nephrology management of HD Type 2 Diabetes Mellitus with Hypoglycemia - A1C = 5.5 on 03/02/2024 - Hypoglycemia noted the morning of 03/03. Appeared to be asymptomatic - Started D10 and would discontinue if BS above 200 - Discussed with Aunt. They have a glucometer, but requested refill of testing strips (ordered) Hx of DVT on Warfarin Warfarin Coagulopathy - INR upon arrival was 2.23 - Holding warfarin due to GIB Lytic Lesion of L5 - As noted on recent CT abd pelv showing focal lytic lesion with soft tissue thickening - Possibly representing a Schmorl node - Recommend outpatient lumbar MRI with PCP. This was discussed with the patient's Aunt via phone. We discussed that sometimes this can indicate cancer. She expressed understanding. Chronic Medical Problems: Cognitive Impairment - Lives with Mother and Aunt (who is his SKIDDER RUNNER) Hx of CVA Legally Blind Hypertension Hyperlipidemia SHIRLEY with CPAP Aortic Stenosis Obesity - BMI 32.20 I spent 53 minutes in reviewing this patient's labs, imaging, medications, medical history. In addition time was spent interviewing the patient, communicating with family, and medical decision making. Time was also spent reviewing notes of GI, nursing. DVT Prophylaxis: Warfarin (on hold) Code Status: Full Code Diet: Clear Liquid Diet Valadez Catheter: Not present Disposition: Medically Ready for Discharge: Anticipated in 2-4 Days Goals to discharge include: hgb stable, tolerating oral diet, BS improved Family updated today: Yes Interval History Pt seen and examined. Pt denies any bowel movements or abd pain. Denies nausea. -Data reviewed today: I personally reviewed all new labs and imaging results over the last 24 hours. Physical Exam Temp: 97.9 ??F (36.6 ??C) Temp src: Oral BP: (!) 149/59 Pulse: 89 Resp: 16 SpO2: 100 % O2 Device: None (Room air) Oxygen Delivery: 1 LPM Vitals: 03/02/24 1901 Weight: 85.1 kg (187 lb 9.8 oz) Vital Signs with Ranges Temp: [97.9 ??F (36.6 ??C)-98.1 ??F (36.7 ??C)] 97.9 ??F (36.6 ??C) Pulse: [71-89] 89 Resp: [16-18] 16 BP: (122-149)/(48-59) 149/59 FiO2 (%): [21 %] 21 % SpO2: [92 %-100 %] 100 % I/O last 3 completed shifts: In: 240 [P.O.:240] Out: - GENERAL: No apparent distress. Awake, alert, and fully oriented. HEENT: Normocephalic, atraumatic. Extraocular movements intact. CARDIOVASCULAR: Regular rate and rhythm without murmurs or rubs. No S3. PULMONARY: Clear bilaterally. GASTROINTESTINAL: Soft, non-tender, non-distended. Bowel sounds normoactive. EXTREMITIES: No cyanosis or clubbing. No edema. NEUROLOGICAL: CN 2-12 grossly intact, no focal neurological deficits. DERMATOLOGICAL: No rash, ulcer, bruising, nor jaundice. Medications Current Facility-Administered Medications Medication Dose Route Frequency Provider Last Rate Last Admin dextrose 10% infusion Intravenous Continuous Aashish Romero DO 40 mL/hr at 03/04/24 09 Rate Verify at 03/04/24 09 Current Facility-Administered Medications Medication Dose Route Frequency Provider Last Rate Last Admin - MEDICATION INSTRUCTIONS for Dialysis Patients - Does not apply See Admin Instructions Aashish Romero DO atorvastatin (LIPITOR) tablet 20 mg 20 mg Oral QPM Ron Tripathi MD 20 mg at 03/03/242023 calcium acetate (PHOSLO) capsule 667 mg 667 mg Oral TID w/meals Ron Tripathi MD 667 mg at 900 [Held by provider] insulin aspart (NovoLOG) injection (RAPID ACTING) 1-4 Units Subcutaneous Q4H Ron Tripathi MD metoprolol tartrate (LOPRESSOR) tablet 100 mg 100 mg Oral QAM Ron Tripathi MD 100 mg at 03/04/24 0900 multivitamin RENAL (TRIPHROCAPS) capsule Oral QPM Ron Tripathi MD 1 mg at 03/03/242023 pantoprazole (PROTONIX) IV push injection 40 mg 40 mg Intravenous BID Ron Tripatih MD 40 mg at 03/04/24 0900 sennosides (SENOKOT) tablet 2 tablet 2 tablet Oral Every Other Day Ron Tripathi MD 2 tablet at 03/04/24 0900 sodium chloride (PF) 0.9% PF flush 3 mL 3 mL Intracatheter Q8H Ron Tripathi MD 3 mL at 03/03/24 0914 Data Laboratory: Recent Labs Lab 03/04/24 0645 03/03/24 2140 03/03/24 1407 03/03/24 0610 03/02/24 2217 03/02/24 1356 WBC 6.7 -- -- 5.5 -- 5.0 HGB 7.1* 7.1* 7.2* 7.6* 7.1* 7.1* < > 6.3* HCT 22.1* -- -- 22.6* -- 20.0* MCV 91 -- -- 93 -- 95 PLT 152 -- -- 131* -- 165 < > = values in this interval not displayed. Recent Labs Lab 03/04/24 0858 03/04/24 0703 03/04/24 0645 03/03/24 1030 03/03/24 0610 03/02/24 1945 03/02/24 1356 NA -- -- 125* -- 132* -- 131* POTASSIUM -- -- 5.7* -- 4.3 -- 4.0 CHLORIDE -- -- 87* -- 93* -- 91* CO2 -- -- 22 -- 27 -- 27 ANIONGAP -- -- 16* -- 12 -- 13 GLC 81 76 81 < > 138* < > 194* BUN -- -- 61.1* -- 35.9* -- 25.4* CR -- -- 7.41* -- 5.63* -- 3.68* GFRESTIMATED -- -- 8* -- 11* -- 18* JON -- -- 8.2* -- 8.2* -- 8.3* PROTTOTAL -- -- 5.5* -- -- -- 6.4 ALBUMIN -- -- 2.9* -- -- -- 3.3* BILITOTAL -- -- 0.5 -- -- -- 0.2 ALKPHOS -- -- 61 -- -- -- 73 AST -- -- 28 -- -- -- 25 ALT -- -- 19 -- -- -- 25 < > = values in this interval not displayed. No results for input(s): CULT in the last 168 hours. No results found for: TROPI Imaging: No results found for this or any previous visit (from the past 24 hour(s)). Aashish Romero DO [facility] Hospitalist Oneyda Hadd[place]. [place] [phone] Securely message with MashON (Vastari info) Text page via [facility] CITYChat[facility] Paging/Directory 03/04/2024 * Douglas Zarate RT - 03/03/2024 10:20 PM CDT Auto CPAP 02/21 @ 21% was applied to the pt via the mask for NOC use. The bridge of the nose looks good and remains intact. Pt is tolerating it well. Will continue to monitor and assess the pt's current respiratory status and needs. RT Mariluz on 03/03/2024 at 10:21 PM * Aashish Romero DO - 03/03/2024 12:46 PM CDT [facility] Hospitalist Progress Note Name: Herminio Victor Provider: Aashish Romero DO Date of Service: 03/03/2024 Summary of Stay: Herminio Victor is a 58 year old male with a history of cognitive impairment, ESRD on HD (MWF), history of DVT on warfarin, type 2 diabetes mellitus, legally blind, history of CVA, hypertension, hyperlipidemia, SHIRLEY with CPAP, obesity admitted on 03/02/2024 with melena. Of note, the patient was recently hospitalized at [facility] from 02/23 to 02/25 for the treatment of acute chronic anemia with melanotic stools. On 02/24, the patient had an EGD showing small esophageal varices. In the emergency department, the patient was found to have a temperature of 96.9 ??F,blood pressure 124/71, heart rate 79, respiratory rate 20, SpO2 95% on room air. Initial lab work showed sodium 131, chloride 91, BUN/creatinine 25.4/3.68, albumin 3.3, glucose 194, hemoglobin 6.3, INR 2.09. The patient was transfused 1 unit of PRBCs. Gastroenterology was consulted to see the patient. TODAY'S PLAN: Appreciate GI recommendations. No stools reported overnight and pt denies any BM thismorning. Continue hgb q8h and transfuse for hgb less than 7. Holding warfarin. NPO pending GI evaluation. Pt also hypoglycemic this morning to the 30s. No insulin given. Suspect secondary to NPO status. Given 1 amp D50 and ultimately required D10 infusion. Would discontinue D10 if BS greater than 200. Updated Aunt Thelma via phone. All questions were answered. Problem List: Melena Small Esophageal Varices Acute Blood Loss Anemia Anemia of Chronic Kidney Disease - Appreciate GI recommendations - PPI IV BID - NPO - s/p 1 unit PRBC in the ED - Hgb q8h - Transfuse for hgb less than 7 - Similar presentation to the week prior and had EGD on 02/25/2024 showing small esophageal varices ESRD on HD (MWF) - Appreciate Nephrology management of HD Type 2 Diabetes Mellitus with Hypoglycemia - A1C = 5.5 on 03/02/2024 - Hypoglycemia noted the morning of 03/03. Appeared to be asymptomatic - Started D10 and would discontinue if BS above 200 Hx of DVT on Warfarin Warfarin Coagulopathy - INR upon arrival was 2.23 - Holding warfarin due to GIB Lytic Lesion of L5 - As noted on recent CT abd pelv showing focal lytic lesion with soft tissue thickening - Possibly representing a Schmorl node - Recommend outpatient lumbar MRI Chronic Medical Problems: Cognitive Impairment - Lives with Mother and Aunt (who is his SKIDDER RUNNER) Hx of CVA Legally Blind Hypertension Hyperlipidemia HSIRLEY with CPAP Aortic Stenosis Obesity - BMI 32.20 I spent 47 minutes in reviewing this patient's labs, imaging, medications, medical history. In addition time was spent interviewing the patient, communicating with family, and medical decision making. DVT Prophylaxis: Pneumatic Compression Devices Code Status: Full Code Diet: NPO for Medical/Clinical Reasons Except for: Meds, Ice Chips Valadez Catheter: Not present Disposition: Medically Ready for Discharge: Anticipated in 2-4 Days Goals to discharge include: GI work up complete, hgb stable, tolerating oral diet Family updated today: Yes Interval History Pt seen and examined. Pt denies any abd pain. -Data reviewed today: I personally reviewed all new labs and imaging results over the last 24 hours. Physical Exam Temp: 98.3 ??F (36.8 ??C) Temp src: Oral BP: 120/54 Pulse: 82 Resp: 18 SpO2: 92 % O2 Device: Nasal cannula Oxygen Delivery: 2 LPM Vitals: 03/02/24 1901 Weight: 85.1 kg (187 lb 9.8 oz) Vital Signs with Ranges Temp: [96.7 ??F (35.9 ??C)-98.5 ??F (36.9 ??C)] 98.3 ??F (36.8 ??C) Pulse: [76-82] 82 Resp: [16-20] 18 BP: (108-124)/(43-71) 120/54 SpO2: [92 %-100 %] 92 % I/O last 3 completed shifts: In: 600 Out: - GENERAL: No apparent distress. Awake, alert, and fully oriented. HEENT: Normocephalic, atraumatic. Extraocular movements intact. CARDIOVASCULAR: Regular rate and rhythm without murmurs or rubs. No S3. PULMONARY: Clear bilaterally. GASTROINTESTINAL: Soft, non-tender, non-distended. Bowel sounds normoactive. EXTREMITIES: No cyanosis or clubbing. No edema. NEUROLOGICAL: CN 2-12 grossly intact, no focal neurological deficits. DERMATOLOGICAL: No rash, ulcer, bruising, nor jaundice. Medications Current Facility-Administered Medications Medication Dose Route Frequency Provider Last Rate Last Admin dextrose 10% infusion Intravenous Continuous Aashish Romero DO 20 mL/hr at 03/03/24 1140 NewBag at 03/03/24 1140 Current Facility-Administered Medications Medication Dose Route Frequency Provider Last Rate Last Admin - MEDICATION INSTRUCTIONS for Dialysis Patients - Does not apply See Admin Instructions Aashish Romero DO atorvastatin (LIPITOR) tablet 20 mg 20 mg Oral QPM Ron Tripathi MD 20 mg at 03/02/242024 calcium acetate (PHOSLO) capsule 667 mg 667 mg Oral TID w/meals Ron Tripathi MD 667 mg at [Held by provider] insulin aspart (NovoLOG) injection (RAPID ACTING) 1-4 Units Subcutaneous Q4H Ron Tripathi MD metoprolol tartrate (LOPRESSOR) tablet 100 mg 100 mg Oral QAM Ron Tripathi MD 100 mg at 03/03/24 0915 multivitamin RENAL (TRIPHROCAPS) capsule Oral QPM Ron Tripathi MD 1 mg at 03/02/242024 pantoprazole (PROTONIX) IV push injection 40 mg 40 mg Intravenous BID Ron Tripathi MD 40 mg at 03/03/24 0914 [START ON 03/04/2024] sennosides (SENOKOT) tablet 2 tablet 2 tablet Oral Every Other Day Ron Tripathi MD sodium chloride (PF) 0.9% PF flush 3 mL 3 mL Intracatheter Q8H Ron Tripathi MD 3 mL at 03/03/24 0914 Data Laboratory: Recent Labs Lab 03/03/24 0610 03/02/24 2217 03/02/24 1356 02/26/24 0610 WBC 5.5 -- 5.0 6.5 HGB 7.1* 7.1* 6.7* 6.3* 8.4* HCT 22.6* -- 20.0* 25.4* MCV 93 -- 95 90 PLT 131* -- 165 103* Recent Labs Lab 03/03/24 1051 03/03/24 1030 03/03/24 0610 03/02/24 1945 03/02/24 1356 02/26/24 0610 NA -- -- 132* -- 131* 128* POTASSIUM -- -- 4.3 -- 4.0 5.1 CHLORIDE -- -- 93* -- 91* 89* CO2 -- -- 27 -- 27 26 ANIONGAP -- -- 12 -- 13 13 GLC 79 56* 138* < > 194* 103* BUN -- -- 35.9* -- 25.4* 60.3* CR -- -- 5.63* -- 3.68* 6.69* GFRESTIMATED -- -- 11* -- 18* 9* JON -- -- 8.2* -- 8.3* 7.9* < > = values in this interval not displayed. No results for input(s): CULT in the last 168 hours. No results found for: TROPI Imaging: No results found for this or any previous visit (from the past 24 hour(s)). Aashish Romero DO [facility] Hospitalist Oneyda Veliz [facility] [place] [address] Securely message with MashON (more info) Text page via [facility] Paging/Directory 03/03/2024 * Bella Argueta RN - 03/03/2024 10:46 AM CDT DATE/TIME OF CALL RECEIVED FROM LAB: 03/03/24 at 10:47 AM LAB TEST: blood glucose LAB VALUE: 56 PROVIDER NOTIFIED?: Yes PROVIDER NAME: Dr. Delfin Romero DATE/TIME LAB VALUE REPORTED TO PROVIDER: 1030 MECHANISM OF PROVIDER NOTIFICATION: [id number] PROVIDER RESPONSE: Administer IV Dextrose and recheck blood glucose in 15 minutes ++++++++++++++++++++++++++++++++++++ DATE/TIME OF CALL RECEIVED FROM LAB: 03/03/24 at 11:15 am LAB TEST: Blood glucose LAB VALUE: 39 PROVIDER NOTIFIED?: Yes PROVIDER NAME: Delfin Villanuevaiz DATE/TIME LAB VALUE REPORTED TO PROVIDER: 03/03/24 at 11:18 am MECHANISM OF PROVIDER NOTIFICATION: [id number] PROVIDER RESPONSE: Additional IV dose of Dextrose (50 mL) start D10 @ 20 mL/hr ++++++++++++++++++++++++++++++++++++++++++ DATE/TIME OF CALL RECEIVED FROM LAB: 03/03/24 at 2:26 PM LAB TEST: Blood glucose LAB VALUE: 65 PROVIDER NOTIFIED?: Yes PROVIDER NAME: Delfin Nick DATE/TIME LAB VALUE REPORTED TO PROVIDER: 1410 MECHANISM OF PROVIDER NOTIFICATION: Page PROVIDER RESPONSE: Increase continuous D10 to 40 mL/hr documented in this encounter H&P Notes * Ron Tripathi MD - 03/02/2024 4:41 PM CDT [facility] History and Physical - Hospitalist Service Date of Admission: 03/02/2024 Assessment & Plan Herminio Victor is a 58 year old male admitted on 03/02/2024. He has history of end-stage renal disease on dialysis, diabetes, hypertension, cognitive impairmentand history of DVT on chronic anticoagulation with Coumadin who was hospitalized recently from 02/23to 02/25 with melanotic stools. Endoscopy showed small (less than 5 mm) esophageal varices with no stigmata of bleeding and no old or fresh blood in stomach or duodenum with a low suspicion for GI bleed and worsening anemia was suspected to be due to ESRD. By the time of his discharge he started having brown stools. While at dialysis today, he again had melanotic stools and was transferred to the ER. No history ofhematemesis or abdominal pain. Vitals on presentation: Temperature 96.7 ??F, heart rate of 80/min, blood pressure 108/51 with respiratory rate 20 and oxygen saturation of 100% on room air. Blood work: Hemoglobin 6.3. BMP showed BUN/creatinine of 25.4/3.67 with glucose of 194. Acute on chronic anemia. Melanotic stools. Anticoagulated with Coumadin. Presented with hemoglobin 6.3 down from 8.4 on 02/25. Similar presentation last week and endoscopy showed small varices with no stigmata of bleeding. CT scan showed other stigmata of portal hypertension including patent portal vein with multiple anterior abdominal wall varicosities but had normal liver. Protonix 40 mg IV twice daily. Hold Coumadin. Give PRBC x 1 unit and continue hemoglobin monitoring every 8 hours, transfuse for less than 7. GI consult again in the morning. Keep n.p.o. Liquid diet if hemoglobin stabilizes. End-stage renal disease and dialysis, MWF Unclear if patient finished today's dialysis but seems like he got significant amount of dialysis as creatinine is improved and has normal potassium and bicarbonate. Nephrology consult in the morning. Diabetes mellitus type 2. HbA1c in October was 5.1 and not on any medications at home. Presented with glucose was 196 and will start on low sliding scale. Chronic medical conditions Cognitive impairment. Lives with mother who also has memory issues and onto his primary SKIDDER RUNNER. Per aunt, patient always had cognitive deficits but it worsened after a stroke several years ago. At baseline he is able to walk and feed himself but needs help with other ADLs. Legally blind. History of DVT, on chronic anticoagulation. INR is 2.09. Will hold Coumadin. Unclear when his last DVT was but it is reasonable to just stop Coumadin given recurrent bleeds. Essential hypertension. Prior to admission on metoprolol and amlodipine which can be continued. Hyperlipidemia. On statins. History of sleep apnea. Aortic stenosis. Diet: NPO DVT Prophylaxis: Pneumatic Compression Devices Valadez Catheter: Not present Lines: None Cardiac Monitoring: None Code Status: Full code. I discussed this with patient's aunt. Clinically Significant Risk Factors Present on Admission # Hypocalcemia: Lowest Ca = 8.3 mg/dL in last 2 days, will monitor and replace as appropriate # Hypoalbuminemia: Lowest albumin = 3.3 g/dL at 03/02/2024 1:56 PM, will monitor as appropriate # Drug Induced Coagulation Defect: home medication list includes an anticoagulant medication # Hypertension: Home medication list includes antihypertensive(s) # Obesity: Estimated body mass index is 32.77 kg/m?? as calculated from the following: Height as of 02/24/24: 1.626 m (5' 4). Weight as of 02/24/24: 86.6 kg (190 lb 14.7 oz). Disposition Plan Medically Ready for Discharge: Anticipated in 2-4 Days Ron Tripathi MD Hospitalist Service [facility] Securely message with [employer] (more info) Text page via [facility] Paging/Directory Chief Complaint Melanotic stools. History is obtained from the patient and patient's aunt Thelma. History of Present Illness Herminio Victor is a 58 year old male admitted on 03/02/2024. He has history of end-stage renal disease on dialysis, diabetes, hypertension, cognitive impairmentand history of DVT on chronic anticoagulation with Coumadin who was hospitalized recently from 02/23to 02/25 with melanotic stools. Endoscopy showed small (less than 5 mm) esophageal varices with no stigmata of bleeding and no old or fresh blood in stomach or duodenum with a low suspicion for GI bleed and worsening anemia was suspected to be due to ESRD. By the time of his discharge he started having brown stools. While at dialysis today, he again had melanotic stools and was transferred to the ER. No history ofhematemesis or abdominal pain. Vitals on presentation: Temperature 96.7 ??F, heart rate of 80/min, blood pressure 108/51 with respiratory rate 20 and oxygen saturation of 100% on room air. Blood work: Hemoglobin 6.3. BMP showed BUN/creatinine of 25.4/3.67 with glucose of 194. Past Medical History Past Medical History: Diagnosis [...] GRAFT EMBOLECTOMY; Surgeon: Jaxon Buenrostro MD; Location: OR C PLACE CATH AV DIALYSIS SHUNT left thigh 05/23 CREATE FISTULA ARTERIOVENOUS LOWER EXTREMITY 06/20/2013 Procedure: CREATE FISTULA ARTERIOVENOUS LOWER EXTREMITY; LEFT GROIN PTFE DIALYSIS ACCESS; Surgeon: Jaxon Buenrostro MD; Location: OR CREATE FISTULA ARTERIOVENOUS LOWER EXTREMITY Left 07/02/2015 Procedure: CREATE FISTULA ARTERIOVENOUS LOWER EXTREMITY; Surgeon: Jaxon Buenrostro MD; Location: OR CREATE FISTULA ARTERIOVENOUS LOWER EXTREMITY Left 03/05/2016 Procedure: CREATE FISTULA ARTERIOVENOUS LOWER EXTREMITY; Surgeon: Jaxon Buenrostro MD; Location: OR CREATE FISTULA ARTERIOVENOUS UPPER EXTREMITY 10/20/2011 Procedure:CREATE FISTULA ARTERIOVENOUS UPPER EXTREMITY; VEIN PATCH RIGHT ARM ARTERIOVENOUS FISTULA WITH BOVINE PATCH; Surgeon:JAXON BUENROSTRO; Location: OR CREATE GRAFT LOOP ARTERIOVENOUS LOWER EXTREMITY 05/03/2012 Procedure: CREATE GRAFT LOOP ARTERIOVENOUS LOWER EXTREMITY; RIGHT GROIN LOOP GRAFT WITH CADAVER FEMORAL ARTERY; Surgeon: aJxon Buenrostro MD; Location: OR CREATE GRAFT LOOP ARTERIOVENOUS LOWER EXTREMITY Left 08/13/2015 Procedure: CREATE GRAFT ARTERIOVENOUS LOWER EXTREMITY; Surgeon: Jaxon Buenrostro MD; Location: OR ESOPHAGOSCOPY, GASTROSCOPY, DUODENOSCOPY (EGD), COMBINED N/A 02/25/2024 Procedure: Esophagoscopy, gastroscopy, duodenoscopy (EGD), combined; Surgeon: Benjie Flores MD; Location: GI GENITOURINARY SURGERY TURP,CIRCUMCISION INSERT CATHETER VENOUS TRANSLUMBAR 08/08/2012 Procedure: INSERT CATHETER VENOUS TRANSLUMBAR; LUMBAR TUNNEL CATH PLACEMENT.; Surgeon: Michele Fuentes MD; Location: OR IR DIALYSIS FISTULOGRAM LEFT 01/25/2019 IR DIALYSIS FISTULOGRAM LEFT 10/02/2019 IR DIALYSIS FISTULOGRAM LEFT 03/18/2020 IR DIALYSIS FISTULOGRAM LEFT 02/11/2022 IRRIGATION AND DEBRIDEMENT FOOT, COMBINED Left 12/16/2017 Procedure: COMBINED IRRIGATION AND DEBRIDEMENT FOOT;; Surgeon: Jaxon Buenrostro MD; Location: SH OR IRRIGATION AND DEBRIDEMENT LOWER EXTREMITY, COMBINED Left 06/04/2014 Procedure: COMBINED IRRIGATION AND DEBRIDEMENT LOWER EXTREMITY; Surgeon: Jaxon Buenrostro MD; Location: SH SD IRRIGATION AND DEBRIDEMENT LOWER EXTREMITY, COMBINED Left 12/19/2015 Procedure: COMBINED IRRIGATION AND DEBRIDEMENT LOWER EXTREMITY; Surgeon: Honorio Aceves MD; Location: SH OR REVISION FISTULA ARTERIOVENOUS LOWER EXTREMITY 05/08/2014 Procedure: REVISION FISTULA ARTERIOVENOUS LOWER EXTREMITY; Surgeon: Jaxon Buenrostro MD; Location: SH SD REVISION FISTULA ARTERIOVENOUS LOWER EXTREMITY Left 06/04/2014 Procedure: REVISION FISTULA ARTERIOVENOUS LOWER EXTREMITY; Surgeon: Jaxon Buenrostro MD; Location: SH SD REVISION FISTULA ARTERIOVENOUS LOWER EXTREMITY Left 11/19/2015 Procedure: REVISION FISTULA ARTERIOVENOUS LOWER EXTREMITY; Surgeon: Jaxon Buenrostro MD; Location: SH OR REVISION FISTULA ARTERIOVENOUS LOWER EXTREMITY Left 12/16/2017 Procedure: REVISION FISTULA ARTERIOVENOUS LOWER EXTREMITY; LEFT THIGH ABF FISTOGRAM, ANGIOPLASTY OFOUTFLOW VENOUS STENOSIS, BANDING LEFT ABF, IRRIGATION AND DEBRIDEMENT LEFT FOOT ULCER (C-ARM); Surgeon: Jaxon Buenrostro MD; Location: SH OR THROMBECTOMY LOWER EXTREMITY 08/09/2012 Procedure: THROMBECTOMY LOWER EXTREMITY;; Surgeon: Jaxon Buenrostro MD; Location: [facility] OR Prior to Admission Medications Prior to Admission Medications Prescriptions Last Dose Informant Patient Reported? Taking? BISACODYL PO Oil Well Driller Yes No Sig: Take 10 mg by mouth four times a week (Takes 2 x 5mg tablet = 10mg dose) Tuesday, Tuesday, Tuesday, and Tuesday amLODIPine (NORVASC) 5 MG tablet Yes No Sig: Take 5 mg by mouth daily atorvastatin (LIPITOR) 20 MG tablet No No Sig: Take 1 tablet (20 mg) by mouth every evening calcium acetate (PHOSLO) 667 MG CAPS capsule Yes No Sig: Take 1 capsule (667 mg)by mouth 3 times daily with meals calcium acetate (PHOSLO) 667 MG CAPS capsule Yes No Sig: Take 1 capsule (667 mg) once daily with a snack lisinopril (ZESTRIL) 40 MG tablet Yes No Sig: Take 20 mg by mouth every evening metoprolol tartrate (LOPRESSOR) 100 MG tablet Yes No Sig: Take 100 mg by mouth every morning warfarin ANTICOAGULANT (COUMADIN) 5 MG tablet Yes No Sig: Take 1 tablet (5 mg) by mouth Tuesday through Tuesday Facility-Administered Medications: None Review of Systems The 10 point Review of Systems is negative other than noted in the HPI or here. Physical Exam Vital Signs: Temp: 96.9 ??F (36.1 ??C) Temp src: Temporal BP: 124/71 Pulse: 79 Resp: 20 SpO2: 95 % O2 Device: None (Room air) Weight: 0 lbs 0 oz General Appearance: Elderly male who is slow to respond but answers simple questions. Oriented x 0 which is his baseline. Respiratory: Clear to auscultation. Cardiovascular: Ejection systolic murmur. GI: Soft and nontender. Skin: No rash. Other: Has left thigh AV fistula. Medical Decision Making MANAGEMENT DISCUSSED with the following over the past 24 hours: Patient, ER physician and patient'shu Thelma Data I have personally reviewed the following data over the past 24 hrs: 5.0 \ 6.3 (LL) / 165 131 (L) 91 (L) 25.4 (H) / 194 (H) 4.0 27 3.68 (H) \ ALT: 25 AST: 25 AP: 73 TBILI: 0.2 ALB: 3.3 (L) TOT PROTEIN: 6.4 LIPASE: N/A INR: 2.09 (H) PTT: N/A D-dimer: N/A Fibrinogen: N/A Imaging results reviewed over the past 24 hrs: No results found for this or any previous visit (from the past 24 hour(s)). documented in this encounter Procedure Notes * Patricio Bocanegra RN - 03/07/2024 1:36 PM CDTAssociated Order(s): Single Lumen Midline Placement [facility] Single Lumen Midline Placement Date/Time: 03/07/2024 1:34 PM Performed by: Patricio Bocanegra RN Authorized by: Antonino Cheek MD Indications: vascular access UNIVERSAL PROTOCOL Site Marked: Yes Prior Images Obtained and Reviewed: Yes Required items: Required blood products, implants, devices and special equipment available Patient identity confirmed: Verbally with patient, arm band and hospital- assigned identification number NA - No sedation, light sedation, or local anesthesia Confirmation Checklist: Patient's identity using two indicators, relevant allergies, procedure was appropriate and matched the consent or emergent situation and correct equipment/implants were available Time out: Immediately prior to the procedure a time out was called [place] Protocol: the [employer] [place] Protocol was followed Preparation: Patient was prepped and draped in usual sterile fashion ANESTHESIA Anesthesia: Local infiltration Local Anesthetic: Lidocaine 1% without epinephrine Anesthetic Total (mL): 4 SEDATION Patient Sedated: No Preparation: skin prepped with ChloraPrep Skin prep [...] size: 4 Fr Brand: Bard Lot number: [id number] Placement method: venipuncture, MST and ultrasound Number [...] caps, blood cleaned with CHG, blood removed, occlusivedressing applied, pressure dressing, subcutaneous anchor securement system, sterile dressing applied, thrombin hemostasis patch applied and gauze (pressure dressing can be removed in 20-30min if bleeding has stopped) Post procedure assessment: blood return through all ports and free fluid flow PROCEDURE Patient Tolerance: Patient tolerated the procedure well with no immediate complicationsDescribe Procedure: Midline ok to use, Anusha Lindsey RN informed documented in this encounter Consult Notes * Heidi Lopez RD - 03/09/2024 10:40 AM CDT CLINICAL NUTRITION SERVICES - ASSESSMENT NOTE Recommendations: - Continue diet as ordered by . - Continue renal MVI. MALNUTRITION: % Weight Loss: None noted % Intake: <75% for > 7 days (moderate malnutrition) --> d/t diet restrictions acutely, improving overall Subcutaneous Fat Loss: Not able to assess today, at HD run Muscle Loss: Not able to assess today, at HD run Fluid Retention: Trace/generalized documented, likely not greatly masking wt trends at this time, therefore not using as indicator Malnutrition Diagnosis: Unable to determine due to lack of NFPE w/ pt off unit but not suspected tomeet malnutrition criteria at this time REASON FOR ASSESSMENT Herminio Victor is a 58 year old male seen by Registered Dietitian for length of stay. PMH of: ESRD on HD, DM, cognitive impairment w/ CVA documented, recent admit from 02/23-02/25 for melanotic stools, legally blind. Admit 11/11: Acute on chronic anemia. NUTRITION HISTORY - Information obtained from chart as patient is off unit at HD run, per RN mentation fluctuates w/ cognitive impairment and is hard to understand at times + can be slow to respond. - Allergies: NKFA. CURRENT NUTRITION ORDERS Diet Order: Dialysis Current Intake/Tolerance: Diet has fluctuated acutely d/t procedures (EGD + colonoscopy). Most recently diet advanced to solids/above yesterday afternoon. PO intakes of 100% when has an active diet order, but only a few days worth of opportunity for ordering meals. Checked-in w/ RN on unit who had patient yesterday as well. Reports ate very large meals without concerns after diet was advanced. ANTHROPOMETRICS Height: 5' 4 Weight: 185 lbs 13.56 oz Body mass index is 31.9 kg/m??. Weight Status: Obesity Grade I BMI 30-34.9 Weight History: Wt Readings from Last 10 Encounters: 03/05/24 84.3 kg (185 lb 13.6 oz) 02/24/24 86.6 kg (190 lb 14.7 oz) 02/11/22 87.5 kg (193 lb) 10/02/19 83.9 kg (185 lb) 01/25/19 83.5 kg (184 lb) 01/26/18 93 kg (205 lb) 12/19/17 90.5 kg (199 lb 8.3 oz) 12/07/17 90 kg (198 lb 8 oz) 04/25/17 90.7 kg (200 lb) 01/06/17 83.9 kg (185 lb) - Trace/generalized edema documented. - Wt of 183# from 11/08/2023. - Wt stable since this time, but there are limited trends available overall. LABS: Reviewed: - Na and K trending noted, Nephrology following MEDICATIONS: Reviewed: - Noted phoslo - Insulin regimen reviewed - On renal MVI GI: Stooling patterns noted. SKIN: No current documentation of PI. ASSESSED NUTRITION NEEDS PER APPROVED PRACTICE GUIDELINES: Dosing Weight 84 kg Estimated Energy Needs: >/=25 Kcal/Kg Justification: maintenance Estimated Protein Needs: >/=1.2 g pro/Kg Justification: dialysis baseline and preservation of lean body mass acutely Estimated Fluid Needs: per MD NUTRITION DIAGNOSIS: Inadequate oral intake related to diet restrictions acutely w/ anemia as evidenced by meeting <75% of nutrition needs on average given mostly NPO/liquids, but slowly improving and on solids since 03/09. NUTRITION INTERVENTIONS Recommendations / Nutrition Prescription See above. Implementation Nutrition education: Not appropriate at this time due to patient condition (off unit). Collaboration and Referral of Nutrition care: Discussed POC with team during rounds and discussed yesterday's PO intakes w/ RN on unit. Nutrition goals: PO intakes of at least 75% of meals TID (on average). Diet >fulls over the next 24-48 hrs. MONITORING AND EVALUATION: Progress towards goals will be monitored and evaluated per protocol and Practice Guidelines Heidi Lopze RDN, LD Clinical Dietitian 3rd floor/ICU: [phone] All other floors: [phone] Weekend/holiday: [phone] Office: [phone] * Job Her MD - 03/04/2024 12:38 PM CDTAssociated Order(s): NEPHROLOGY IP CONSULT RENAL CONSULTATION NOTE REFERRING MD: Aashish Romero DO REASON FOR CONSULTATION: ESRD on HD MWF HPI: 58 y.o man with ESRD, DM, HTN and on anti-coagulation for DVT, who was sent from the dialysis unit for recurrent melanotic stool. Hospitalized from 02/23- for melanotic stool. He received PRBC transfusion EGD showed < 5 mm esophageal varices without stigmata of bleed. Discharged with Hgb of 8.4 and came back with Hgb of 6.3. He received one unit of PRBC He is on clear liquids for possible colonoscopy tomorrow. No complaints from patient. Denies N/V/SOB and abdominal pain. ROS: A complete review of systems was performed and is negative except as noted above. PMH: Past Medical History: Diagnosis Date A-V fistula (H24) left forearm Anemia Anemia Blind Chronic in-center hemodialysis status (H24) Cognitive deficits Diabetes mellitus (H) DVT (deep venous thrombosis) (H) ESRD (end stage renal disease) (H) dialysis [facility] History of staph septicemia 12/20/2015 Hyperkalemia Hyperlipemia Hyperlipidaemia Hypertension Hypertension Kidney disease Kidney disease Orthostasis Retinopathy Sleep apnea CPAP Syncope PSH: Past Surgical History: Procedure Laterality Date ABDOMEN SURGERY AV FISTULA OR GRAFT ARTERIAL BYPASS GRAFT FEMOROPOPLITEAL 08/09/2012 Procedure: BYPASS GRAFT FEMOROPOPLITEAL; REDO RIGHT PROFUNDUS FEMORAL TO COMMON FEMORAL ACCESS GRAFT WITH PTFE (POLY TETRA FLOROETHELINE GRAFT), REMOVAL COMMON FEMORAL VEIN STENT, GRAFT EMBOLECTOMY; Surgeon: Jaxon Buenrostro MD; Location: OR C PLACE CATH AV DIALYSIS SHUNT left thigh 05/23 CREATE FISTULA ARTERIOVENOUS LOWER EXTREMITY 06/20/2013 Procedure: CREATE FISTULA ARTERIOVENOUS LOWER EXTREMITY; LEFT GROIN PTFE DIALYSIS ACCESS; Surgeon: Jaxon Buenrostro MD; Location: OR CREATE FISTULA ARTERIOVENOUS LOWER EXTREMITY Left 07/02/2015 Procedure: CREATE FISTULA ARTERIOVENOUS LOWER EXTREMITY; Surgeon: Jaxon Buenrostro MD; Location: OR CREATE FISTULA ARTERIOVENOUS LOWER EXTREMITY Left 03/05/2016 Procedure: CREATE FISTULA ARTERIOVENOUS LOWER EXTREMITY; Surgeon: Jaxon Buenrostro MD; Location: OR CREATE FISTULA ARTERIOVENOUS UPPER EXTREMITY 10/20/2011 Procedure:CREATE FISTULA ARTERIOVENOUS UPPER EXTREMITY; VEIN PATCH RIGHT ARM ARTERIOVENOUS FISTULA WITH BOVINE PATCH; Surgeon:JAXON BUENROSTRO; Location: OR CREATE GRAFT LOOP ARTERIOVENOUS LOWER EXTREMITY 05/03/2012 Procedure: CREATE GRAFT LOOP ARTERIOVENOUS LOWER EXTREMITY; RIGHT GROIN LOOP GRAFT WITH CADAVER FEMORAL ARTERY; Surgeon: Jaxon Buenrostro MD; Location: OR CREATE GRAFT LOOP ARTERIOVENOUS LOWER EXTREMITY Left 08/13/2015 Procedure: CREATE GRAFT ARTERIOVENOUS LOWER EXTREMITY; Surgeon: Jaxon Buenrostro MD; Location: OR ESOPHAGOSCOPY, GASTROSCOPY, DUODENOSCOPY (EGD), COMBINED N/A 02/25/2024 Procedure: Esophagoscopy, gastroscopy, duodenoscopy (EGD), combined; Surgeon: Benjie Flores MD; Location: GI GENITOURINARY SURGERY TURP,CIRCUMCISION INSERT CATHETER VENOUS TRANSLUMBAR 08/08/2012 Procedure: INSERT CATHETER VENOUS TRANSLUMBAR; LUMBAR TUNNEL CATH PLACEMENT.; Surgeon: Michele Fuentes MD; Location: OR IR DIALYSIS FISTULOGRAM LEFT 01/25/2019 IR DIALYSIS FISTULOGRAM LEFT 10/02/2019 IR DIALYSIS FISTULOGRAM LEFT 03/18/2020 IR DIALYSIS FISTULOGRAM LEFT 02/11/2022 IRRIGATION AND DEBRIDEMENT FOOT, COMBINED Left 12/16/2017 Procedure: COMBINED IRRIGATION AND DEBRIDEMENT FOOT;; Surgeon: Jaxon Buenrostro MD; Location: OR IRRIGATION AND DEBRIDEMENT LOWER EXTREMITY, COMBINED Left 06/04/2014 Procedure: COMBINED IRRIGATION AND DEBRIDEMENT LOWER EXTREMITY; Surgeon: Jaxon Buenrostro MD; Location: SD IRRIGATION AND DEBRIDEMENT LOWER EXTREMITY, COMBINED Left 12/19/2015 Procedure: COMBINED IRRIGATION AND DEBRIDEMENT LOWER EXTREMITY; Surgeon: Honorio Aceves MD; Location: OR REVISION FISTULA ARTERIOVENOUS LOWER EXTREMITY 05/08/2014 Procedure: REVISION FISTULA ARTERIOVENOUS LOWER EXTREMITY; Surgeon: Jaxon Buenrostro MD; Location: SD REVISION FISTULA ARTERIOVENOUS LOWER EXTREMITY Left 06/04/2014 Procedure: REVISION FISTULA ARTERIOVENOUS LOWER EXTREMITY; Surgeon: Jaxon Buenrostro MD; Location: SD REVISION FISTULA ARTERIOVENOUS LOWER EXTREMITY Left 11/19/2015 Procedure: REVISION FISTULA ARTERIOVENOUS LOWER EXTREMITY; Surgeon: Jaxon Buenrostro MD; Location: OR REVISION FISTULA ARTERIOVENOUS LOWER EXTREMITY Left 12/16/2017 Procedure: REVISION FISTULA ARTERIOVENOUS LOWER EXTREMITY; LEFT THIGH ABF FISTOGRAM, ANGIOPLASTY OFOUTFLOW VENOUS STENOSIS, BANDING LEFT ABF, IRRIGATION AND DEBRIDEMENT LEFT FOOT ULCER (C-ARM); Surgeon: Jaxon Buenrostro MD; Location: OR THROMBECTOMY LOWER EXTREMITY 08/09/2012 Procedure: THROMBECTOMY LOWER EXTREMITY;; Surgeon: Jaxon Buenrostro MD; Location: OR MEDICATIONS: Current Facility-Administered Medications Medication Dose Route Frequency Provider Last Rate Last Admin - MEDICATION INSTRUCTIONS for Dialysis Patients - Does not apply See Admin Instructions Aashish Romero DO amLODIPine (NORVASC) tablet 5 mg 5 mg Oral Daily Aashish Romero DO 5 mg at 03/04/24 105 atorvastatin (LIPITOR) tablet 20 mg 20 mg Oral QPM Ron Tripathi MD 20 mg at 03/03/242023 calcium acetate (PHOSLO) capsule 667 mg 667 mg Oral TID w/meals Ron Tripathi MD 667 mg at 900 [Held by provider] insulin aspart (NovoLOG) injection (RAPID ACTING) 1-4 Units Subcutaneous Q4H Ron Tripathi MD metoprolol tartrate (LOPRESSOR) tablet 100 mg 100 mg Oral QAM Ron Tripathi MD 100 mg at 03/04/24 0900 multivitamin RENAL (TRIPHROCAPS) capsule Oral QPM Ron Tripathi MD 1 mg at 03/03/242023 pantoprazole (PROTONIX) EC tablet 40 mg 40 mg Oral BID AC Aashish Romero DO sennosides (SENOKOT) tablet 2 tablet 2 tablet Oral Every Other Day Ron Tripathi MD 2 tablet at 03/04/24 0900 sodium chloride (PF) 0.9% PF flush 3 mL 3 mL Intracatheter Q8H Ron Tripathi MD 3 mL at 03/03/24 0914 ALLERGIES: Allergies as of 03/02/2024 - Reviewed 03/02/2024 Allergen Reaction Noted Dihydroxyaluminum aminoacetate Nausea 07/16/2011 Aspirin GI Disturbance and Rash 10/15/2009 FH: Family History Family history unknown: Yes SH: Social History Socioeconomic History Marital status: Single Spouse name: Not on file Number of children: Not on file Years of education: Not on file Highest education level: Not on file Occupational History Not on file Tobacco Use Smoking status: Never Smokeless tobacco: Never Substance and Sexual Activity Alcohol use: No Drug use: No Sexual activity: Not on file Other Topics Concern Parent/sibling w/ CABG, PR or angioplasty before 65F 55M? Not Asked Social History Narrative Not on file Social Determinants of Health Financial Resource Strain: Low Risk (06/23/2022) Received from [facility] Financial Resource Strain Difficulty of Paying Living Expenses: 3 Difficulty of Paying Living Expenses: Not on file Food Insecurity: No Food Insecurity (06/23/2022) Received from [facility] Food Insecurity Worried About Running Out of Food in the Last Year: 1 Transportation Needs: No Transportation Needs (06/23/2022) Received from [facility] Transportation Needs Lack of Transportation (Medical): 1 Physical Activity: Not on file Stress: Not on file Social Connections: Unknown (06/24/2023) [facility] Social Connections Frequency of Communication with Friends and Family: Not on file Interpersonal Safety: Not on file Housing Stability: Low Risk (06/23/2022) Received from [facility] Housing Stability Unable to Pay for Housing in the Last Year: 1 PHYSICAL EXAM: BP 135/52 Pulse 89 Temp 97.9 ??F (36.6 ??C) (Oral) Resp 16 Wt 85.1 kg (187 lb 9.8 oz) SpO2 100% BMI 32.20 kg/m?? GENERAL: pleasant, alert, NAD HEENT: Normocephalic. No gross abnormalities. Pupils equal. MMM. CV: RRR, + murmur RESP: Clear bilaterally with good efforts GI: Abdomen obese, soft, NT MUSCULOSKELETAL: extremities nl - no gross deformities noted. A thigh AVF + pulse. SKIN: no suspicious lesions or rashes, dry to touch NEURO: Awake, alert and conversing. PSYCH: mood good, affect appropriate LYMPH: No palpable ant/post cervical LABS: CBC RESULTS: Recent Labs Lab 03/04/24 0645 03/03/24 2140 03/03/24 1407 03/03/24 0610 03/02/24 2217 03/02/24 1356 WBC 6.7 -- -- 5.5 -- 5.0 RBC 2.44* -- -- 2.43* -- 2.10* HGB 7.1* 7.1* 7.2* 7.6* 7.1* 7.1* 6.7* 6.3* HCT 22.1* -- -- 22.6* -- 20.0* PLT 152 -- -- 131* -- 165 BMP RESULTS: Recent Labs Lab 03/04/24 1159 03/04/24 1047 03/04/24 0858 03/04/24 0703 03/04/24 0645 03/04/24 0508 03/03/24 1030 03/03/24 0610 03/02/24 1945 03/02/24 1356 NA -- -- -- -- 125* -- -- 132* -- 131* POTASSIUM -- -- -- -- 5.7* -- -- 4.3 -- 4.0 CHLORIDE -- -- -- -- 87* -- -- 93* -- 91* CO2 -- -- -- -- 22 -- -- 27 -- 27 BUN -- -- -- -- 61.1* -- -- 35.9* -- 25.4* CR -- -- -- -- 7.41* -- -- 5.63* -- 3.68* GLC 69* 74 81 76 81 93 < > 138* < > 194* JON -- -- -- -- 8.2* -- -- 8.2* -- 8.3* < > = values in this interval not displayed. INR Recent Labs Lab 03/03/24 0610 03/02/24 1356 INR 2.23* 2.09* DIAGNOSTICS: Reviewed A/P: 58 y.o man with ESRD, HTN, DM and severe anemia. # ESRD: -MWF -L upper thigh AVF, 15 g -EDW 82 kg -3.5 hrs +heparin -Dr. Holman # Anemia: GIB? -s/p one unit prbc -Mircera with HD # Mild hyperkalemia # Moderate hyponatremia: # DVT: on coumadin Plan: # Lokelma 10 grams # Recheck K later this evening # Fluid restriction to 1200 ml daily # lower GIB? # Need to see when his last Mircera dose on Tuesday # Venofer with HD # Will hold heparin with HD Job Her [facility] Office Pager: [phone] * Paul Rasmussen MD - 03/03/2024 3:58 PM CDTAssociated Order(s): GASTROENTEROLOGY IP CONSULT Images from the original note were not included. GASTROENTEROLOGY CONSULTATION Herminio Victor [address] [place] [id number] 58 year old male Admission Date/Time: 03/02/2024 Primary Care Provider: Cornell Butt We were asked to see the patient in consultation by Dr. Romero for evaluation of anemia. ASSESSMENT: #1 Anemia, suspect subacute to chronic, normal +iron sat, low TIBC, normal MCV #2 ESRD on dialysis #3 Developmental delay/cognitive impairment #4 Coumadin anticoagulation, h/o DVT #5 IDDM Unclear if overt melena. Per nurse, one witnessed stools/smearing of brown color. Iron labs/normal MCV suggestive of anemia of chronic disease/ESRD. INR today 2.23. EGD last week showed food in the stomach (at risk of gastroparesis) but no blood or blood products seen or any evidence of upper gi bleed noted. Small varices noted. CT done- no evidence of liver disease or portal hypertension seen. Small paraesophageal and ant abdominal varicosities noted- not clear these indicate portal hypertension and could be incidental. No recent colonoscopy. RECOMMENDATIONS: - conservative monitoring recommended for now. - ok to start clears. If hb trend stable by AM and no overt bleeding, then ADAT. - If further work-up needed and consistent with patient's wishes, in the absence of clear overt melena, would pursue colonoscopy in the OR on 03/06 (at risk of aspiration with recent food in stomach noted with conscious sedation EGD last week). - hold coumadin for now. GI team will continue follow and suggest when safe/ok to restart based on course. Paul Rasmussen MD [facility] [phone] HPI: Herminio Victor is a 58 year old male who has cognitive impairment, legal blindness, on coumadin, ESRD on hemodialysis, and sent for admission due to recurrent anemia. Hb was down to 6.3 nowup to 7.6 post PRBC. Direct history limited. Denies any abd pain, denies any obvious bleeding. EGD last week for similar presentation then CT scan- see above. No prior known liver disease. ROS: A comprehensive ten point review of systems was negative aside from those in mentioned in the HPI. PAST MEDICAL HISTORY: Past Medical History: Diagnosis Date A-V fistula (H24) left forearm Anemia Anemia Blind Chronic in-center hemodialysis status (H24) Cognitive deficits Diabetes mellitus (H) DVT (deep venous thrombosis) (H) ESRD (end stage renal disease) (H) dialysis T-TH-Sat History of staph septicemia 12/20/2015 Hyperkalemia Hyperlipemia Hyperlipidaemia Hypertension Hypertension Kidney disease Kidney disease Orthostasis Retinopathy Sleep apnea CPAP Syncope SOCIAL HISTORY: Social History Tobacco Use Smoking status: Never Smokeless tobacco: Never Substance Use Topics Alcohol use: No Drug use: No FAMILY HISTORY: Family History Family history unknown: Yes ALLERGIES: Allergies Allergen Reactions Dihydroxyaluminum Aminoacetate Nausea GI bleeding Aspirin GI Disturbance and Rash PN: LW Reaction: unknown MEDICATIONS: Prior to Admission medications Medication Sig Start Date End Date Taking? Authorizing Provider amLODIPine (NORVASC) 5 MG tablet Take 5 mg by mouth daily Yes Unknown, Entered By History atorvastatin (LIPITOR) 20 MG tablet Take 1 tablet (20 mg) by mouth every evening 12/19/17 Yes Estrella Guillen MD B Xflyckl-A-Wssdy Acid (WESCAPS PO) Take 1 capsule by mouth every evening Yes Unknown, Entered By History calcium acetate (PHOSLO) 667 MG CAPS capsule Take 1 capsule (667 mg)by mouth 3 times daily with meals Yes Unknown, Entered By History calcium acetate (PHOSLO) 667 MG CAPS capsule Take 1 capsule (667 mg) once daily with a snack Yes Unknown, Entered By History metoprolol tartrate (LOPRESSOR) 100 MG tablet Take 100 mg by mouth every morning Yes Unknown, Entered By History sennosides (SENOKOT) 8.6 MG tablet Take 2 tablets by mouth every other day Yes Unknown, Entered By History warfarin ANTICOAGULANT (COUMADIN) 5 MG tablet Take 1 tablet (5 mg) by mouth Tuesday through Tuesday Yes Unknown, Entered By History PHYSICAL EXAM: BP 131/49 (BP Location: Right arm) Pulse 71 Temp 98.1 ??F (36.7 ??C) (Oral) Resp 18 Wt 85.1kg (187 lb 9.8 oz) SpO2 100% BMI 32.20 kg/m?? GEN: No distress, Alert, comfortable. SENTHIL: No pallor, No icterus, oral mucosa moist. NECK: No thyromegaly. No mass. HEART: RRR, S1 S2 normal. LUNGS: CTA BL ABD: soft, non-tender, non-distended, no peritoneal signs. NEURO: No gross motor deficits. PSYCH: Able to answer to basic questions, unable to provide detailed history or recent course details. EXTREMITIES: No pedal edema. ADDITIONAL DATA: I reviewed the patient's new clinical lab test results. Recent Labs Lab Test 03/03/24 1407 03/03/24 0610 03/02/24 2217 03/02/24 1356 02/26/24 0949 02/26/24 0610 WBC -- 5.5 -- 5.0 -- 6.5 HGB 7.6* 7.1* 7.1* 6.7* 6.3* -- 8.4* MCV -- 93 -- 95 -- 90 PLT -- 131* -- 165 -- 103* INR -- 2.23* -- 2.09* 1.27* -- Recent Labs Lab Test 03/03/24 1411 03/03/24 1159 03/03/24 1136 03/03/24 1030 03/03/24 0610 03/02/24 1945 03/02/24 1356 02/26/24 0610 NA -- -- -- -- 132* -- 131* 128* POTASSIUM -- -- -- -- 4.3 -- 4.0 5.1 CHLORIDE -- -- -- -- 93* -- 91* 89* CO2 -- -- -- -- 27 -- 27 26 BUN -- -- -- -- 35.9* -- 25.4* 60.3* CR -- -- -- -- 5.63* -- 3.68* 6.69* ANIONGAP -- -- -- -- 12 -- 13 13 JON -- -- -- -- 8.2* -- 8.3* 7.9* GLC 65* 152* 80 < > 138* < > 194* 103* < > = values in this interval not displayed. Recent Labs Lab Test 03/02/24 1356 02/26/24 0610 02/24/24 0958 12/16/15 1501 ALBUMIN 3.3* 3.3* 3.6 3.5 BILITOTAL 0.2 -- 0.5 0.6 ALT 25 -- 21 16 AST 25 -- 21 17 LIPASE -- -- -- 154 I reviewed the patient's new imaging results. Total time: 50 minutes. * Michelle Bird RN - 03/03/2024 10:10 AM CDTAssociated Order(s): CARE MANAGEMENT / SOCIAL WORK IP CONSULT Care Management Initial Consult General Information Assessment completed with: Family, aunt Thelma Type of CM/SW Visit: Initial Assessment Primary Care Provider verified and updated as needed: Yes Readmission within the last 30 days: previous discharge plan unsuccessful Reason for Consult: discharge planning, care coordination/care conference Advance Care Planning: Communication Assessment Patient's communication style: spoken language (Iraqi or Bilingual) Hearing Difficulty or Deaf: no Wear Glasses or Blind: no Cognitive Cognitive/Neuro/Behavioral: .WDL except Level of Consciousness: alert Arousal Level: opens eyes spontaneously Orientation: disoriented to, situation Mood/Behavior: calm, cooperative Best Language: 0 - No aphasia Speech: clear Living Environment: People in home: other relative(s) (mother and aunt) Current living Arrangements: house Able to return to prior arrangements: yes Family/Social Support: Care provided by: other (see comments) (SKIDDER RUNNER- aunt Thelma) Provides care for: no one, unable/limited ability to care for self Marital Status: Single Parent(s), Other (specify) (aunt) Description of Support System: Supportive, Involved Support Assessment: Adequate social supports Current Resources: Patient receiving home care services: No Community Resources: None Equipment currently used at home: none Supplies currently used at home: Other, Diabetic Supplies (CPAP) Does the patient's insurance plan have a 3 day qualifying hospital stay waiver? No Lifestyle & Psychosocial Needs: Social Determinants of Health Food Insecurity: No Food Insecurity (06/23/2022) Received from [employer] [facility] Food Insecurity Worried About Running Out of Food in the Last Year: 1 Depression: Not at risk (05/22/2020) Received from [facility] PHQ-2 PHQ-2 Score: 0 Housing Stability: Low Risk (06/23/2022) Received from [facility] Housing Stability Unable to Pay for Housing in the Last Year: 1 Tobacco Use: Low Risk (02/25/2024) Patient History Smoking Tobacco Use: Never Smokeless Tobacco Use: Never Passive Exposure: Not on file Financial Resource Strain: Low Risk (06/23/2022) Received from [facility] Financial Resource Strain Difficulty of Paying Living Expenses: 3 Difficulty of Paying Living Expenses: Not on file Alcohol Use: Not on file Transportation Needs: No Transportation Needs (06/23/2022) Received from [facility] Transportation Needs Lack of Transportation (Medical): 1 Physical Activity: Not on file Interpersonal Safety: Not on file Stress: Not on file Social Connections: Unknown (06/24/2023) Received from [facility] Social Connections Frequency of Communication with Friends and Family: Not on file Health Literacy: Not on file Functional Status: Prior to admission patient needed assistance: Dependent ADLs:: Ambulation-no assistive device, Bathing, Dressing, Grooming, Positioning, Transfers Dependent IADLs:: Cleaning, Cooking, Laundry, Shopping, Meal Preparation, Medication Management, Money Management, Transportation Assesssment of Functional Status: Not at functional baseline Additional Information: Patient admitted for melanotic stools while at dialysis. He was sent to the ED. GI has been consulted. He is followed by GI, Nephrology and the Hospitalist. Patient resides in a house with his mother and aunt. His aunt is his SKIDDER RUNNER and has 40 hours per week.He receives assistance with all ADL's and IADL's except eating. He is legally blind so he needs assistance with ambulating, positioning and transfers too. He ambulates without any assistive devices.He receives Dialysis on MWF at [facility] in [place] per his aunt report.His transportation company [employer] in [place]. Their Phone number is [phone] and they are open M-F , 7 AM to 5 pm. CM will monitor for any discharge needs. Laura Bird RN, BSN, CM Inpatient Care Coordination [facility] [phone] documented in this encounter ED Notes * Albina Sneed RN - 03/02/2024 5:43 PM CDT [facility] ED Nurse Handoff Report ED Chief complaint: Generalized Weakness . ED Diagnosis: Final diagnoses: Anemia, unspecified type Black stool Allergies: Allergies Allergen Reactions Dihydroxyaluminum Aminoacetate Nausea GI bleeding Aspirin GI Disturbance and Rash PN: LW Reaction: unknown Code Status: Full Code Activity level - Baseline/Home: lift. Activity Level - Current: bed Lift room needed: No. Bariatric: No Subway Train Operator Needed: No Isolation: No. Infection: Not Applicable. Respiratory status: Nasal cannula Vital Signs (within 30 minutes): Vitals: 03/02/24 1734 03/02/24 1735 03/02/24 1740 03/02/24 1742 BP: 115/56 119/52 Pulse: 77 77 76 77 Resp: 16 16 Temp: 98 ??F (36.7 ??C) 97.9 ??F (36.6 ??C) TempSrc: Oral SpO2: 100% 94% Cardiac Rhythm: , Pain level: Patient confused: Yes. Patient Falls Risk: nonskid shoes/slippers when out of bed, arm band in place, patient and family education, and room door open. Elimination Status: Unable to void Patient Report - Initial Complaint: weakness. Focused Assessment: anemia, black stools Abnormal Results: Labs Ordered and Resulted from Time of ED Arrival to Time of ED Departure COMPREHENSIVE METABOLIC PANEL - Abnormal Result Value Sodium 131 (*) Potassium 4.0 Carbon Dioxide (CO2) 27 Anion Gap 13 Urea Nitrogen 25.4 (*) Creatinine 3.68 (*) GFR Estimate 18 (*) Calcium 8.3 (*) Chloride 91 (*) Glucose 194 (*) Alkaline Phosphatase 73 AST 25 ALT 25 Protein Total 6.4 Albumin 3.3 (*) Bilirubin Total 0.2 INR - Abnormal INR 2.09 (*) CBC WITH PLATELETS AND DIFFERENTIAL - Abnormal WBC Count 5.0 RBC Count 2.10 (*) Hemoglobin 6.3 (*) Hematocrit 20.0 (*) MCV 95 MCH 30.0 MCHC 31.5 RDW 17.0 (*) Platelet Count 165 % Neutrophils 75 % Lymphocytes 12 % Monocytes 9 % Eosinophils 3 % Basophils 0 % Immature Granulocytes 1 NRBCs per 100 WBC 0 Absolute Neutrophils 3.7 Absolute Lymphocytes 0.6 (*) Absolute Monocytes 0.5 Absolute Eosinophils 0.2 Absolute Basophils 0.0 Absolute Immature Granulocytes 0.1 Absolute NRBCs 0.0 AMMONIA - Abnormal Ammonia <10 (*) INFLUENZA A/B, RSV, & SARS-COV2 PCR - Normal Influenza A PCR Negative Influenza B PCR Negative RSV PCR Negative SARS CoV2 PCR Negative ISTAT GASES LACTATE VENOUS POCT TYPE AND SCREEN, ADULT ABO/RH(D) O POS Antibody Screen Negative SPECIMEN EXPIRATION DATE [id number] PREPARE RED BLOOD CELLS (UNIT) Blood Component Type Red Blood Cells Product Code B9323X61 Unit Status Transfused Unit Number [id number] CROSSMATCH Compatible CODING SYSTEM [id number] ISSUE DATE AND TIME [id number] UNIT ABO/RH O+ UNIT TYPE ISBT 5100 PREPARE RED BLOOD CELLS (UNIT) Blood Component Type Red Blood Cells Product Code S8823R87 Unit Status Ready for issue Unit Number [id number] CROSSMATCH Compatible CODING SYSTEM [id number] PREPARE RED BLOOD CELLS (UNIT) TRANSFUSE RED BLOOD CELLS (UNIT) ABO/RH TYPE AND SCREEN No orders to display Treatments provided: labs, blood transfusion, protonix Family Comments: OBS brochure/video discussed/provided to patient: N/A ED Medications: Medications pantoprazole (PROTONIX) IV push injection 40 mg (has no administration in time range) Drips infusing: Yes For the majority of the shift this patient was Green. Interventions performed were . Sepsis treatment initiated: No Cares/treatment/interventions/medications to be completed following ED care: PRBC completion; pt has dialysis shunt in [facility] ED HANDOFF REVIEW Above ED Nurse Handoff Report was reviewed: Yes Reviewed by: Albina Sneed RN on March 02, 2024 at 6:24 PM I Jakob called the ED to inform them the note was read: Yes ED Nurse Name: Lilibeth Ray RN 5:43 PM * Malka Larios RN - 03/02/2024 2:14 PM CDT Pt sent from Dialysis today via EMS for generalized weakness. Per report from EMS pt Hgb dropped from 7 to 5 and does not talk much. Pt denies SOB, or pain. Ems unsure if dialysis was completed. Triage Assessment (Adult) Row Name 03/02/24 1359 Triage Assessment Airway WDL WDL Respiratory WDL Respiratory WDL WDL Skin Circulation/Temperature WDL Skin Circulation/Temperature WDL WDL Cardiac WDL Cardiac WDL WDL * Barbara Ayala RN - 03/02/2024 1:54 PM CDT Bed: ED29 Expected date: 03/02/24 Expected time: 1:38 PM Means of arrival: Comments: [facility] * Raúl Bernard MD - 03/02/2024 1:54 PM CDT Emergency Department Note History of Present Illness Chief Complaint Generalized Weakness HPI Herminio Victor is a 58 year old male, anticoagulated with warfarin, with history of DVT, type 2 diabetes, hypertension, ESRD, and hyperlipidemia who presents to the ED via EMS for evaluation of generalized weakness. EMS reports the paitent was taken from dialysis for concerns with generalized weakness. EMS is unsure if the patient finished dialysis. They state patient had a drop in hemoglobin from 7 yesterday to 6 today. The paitent denies shortness of breath, chest pain, nausea, abdominalpain, or any other pain. Paitent has history of blood thinner, currently on warfarin. Paitent denies any recent falls and is not on O2 at home. Independent Historian EMS as above Review of External Notes Discharge summary reviewed from 02/26/24. 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 Left foot ulcer Steal syndrome of dialysis vascular access Gastrointestinal hemorrhage Hyperthyroidism Vitamin D deficiency Hyperparathyroidism Obesity Proteinuria Blindness Obstructive sleep apnea Pyelonephritis GERD Intestinal infection due to Clostridium difficile Diabetic retinopathy Peritonitis Cognitive dysfunction Edentulous Aortic stenosis Disorder of calcium metabolism Disorder of phosphorus metabolism Medications Norvasc Lipitor Bisacodyl Zestril Lopressor Coumadin Zocor Rocaltrol Renagel Percocet Senna Prilosec Surgical History Abdomen surgery AV fistula or graft arterial Redo right profundus femoral to common femoral access graft with PTFE, removal common femoral vein stent, graft embolectomy C place cath AV dialysis shunt Create fistula arteriovenous lower left extremity x3 Create fistula arteriovenous upper extremity, vein patch right arm arteriovenous fistula with bovine patch Create graft loop arteriovenous lower extremity, right groin loop graft with cadaver femoral artery Creat graft arteriovenous left lower extremity EGD combined TURP Circumcision Insert catheter venous translumbar, lumbar tunnel cath placement IR dialysis fistulogram left x4 Combined irrigation and debridement of left foot Combined irrigation and debridement left lower extremity x2 Revision fistula arteriovenous lower extremity Revision fistula arteriovenous lower left extremity x3 Thrombectomy lower extremity Left femoral exploration Left femoral embolectomy Gortex graft, bilateral Colonoscopy Revision right arm dialysis access Tunneled dialysis catheter Physical Exam Patient Vitals for the past 24 hrs: BP Temp Temp src Pulse Resp SpO2 03/02/24 1445 124/71 -- -- 79 -- 95 % 03/02/24 1413 -- 96.9 ??F (36.1 ??C) Temporal -- -- -- 03/02/24 1400 108/51 (!) 96.7 ??F (35.9 ??C) Temporal 80 20 100 % Physical Exam General: No acute distress Head: No obvious trauma to head. Ears, Nose, Throat: External ears normal. Nose normal. No pharyngeal erythema, swelling or exudate.Midline uvula. Moist mucus membranes. Eyes: Conjunctivae clear. Neck: Normal range of motion. Neck supple. CV: Regular rate and rhythm. No murmurs. Respiratory: Effort normal and breath sounds normal. No wheezing or crackles. Gastrointestinal: Soft. No distension. There is no tenderness. There is no rigidity, no rebound andno guarding. Musculoskeletal: Normal range of motion. Non tender extremities to palpations. No lower extremity edema Neuro: Alert. Moving all extremities appropriately. Slow to respond. Skin: Skin is warm and dry. No rash noted. Psych: Unable to access. Diagnostics Lab Results Labs Ordered and Resulted from Time of ED Arrival to Time of ED Departure COMPREHENSIVE METABOLIC PANEL - Abnormal Result Value Sodium 131 (*) Potassium 4.0 Carbon Dioxide (CO2) 27 Anion Gap 13 Urea Nitrogen 25.4 (*) Creatinine 3.68 (*) GFR Estimate 18 (*) Calcium 8.3 (*) Chloride 91 (*) Glucose 194 (*) Alkaline Phosphatase 73 AST 25 ALT 25 Protein Total 6.4 Albumin 3.3 (*) Bilirubin Total 0.2 INR - Abnormal INR 2.09 (*) CBC WITH PLATELETS AND DIFFERENTIAL - Abnormal WBC Count 5.0 RBC Count 2.10 (*) Hemoglobin 6.3 (*) Hematocrit 20.0 (*) MCV 95 MCH 30.0 MCHC 31.5 RDW 17.0 (*) Platelet Count 165 % Neutrophils 75 % Lymphocytes 12 % Monocytes 9 % Eosinophils 3 % Basophils 0 % Immature Granulocytes 1 NRBCs per 100 WBC 0 Absolute Neutrophils 3.7 Absolute Lymphocytes 0.6 (*) Absolute Monocytes 0.5 Absolute Eosinophils 0.2 Absolute Basophils 0.0 Absolute Immature Granulocytes 0.1 Absolute NRBCs 0.0 AMMONIA - Abnormal Ammonia <10 (*) INFLUENZA A/B, RSV, & SARS-COV2 PCR - Normal Influenza A PCR Negative Influenza B PCR Negative RSV PCR Negative SARS CoV2 PCR Negative ISTAT GASES LACTATE VENOUS POCT TYPE AND SCREEN, ADULT ABO/RH(D) O POS Antibody Screen Negative SPECIMEN EXPIRATION DATE [id number] PREPARE RED BLOOD CELLS (UNIT) Blood Component Type Red Blood Cells Product Code I5028H54 Unit Status Ready for issue Unit Number [id number] CROSSMATCH Compatible CODING SYSTEM [id number] PREPARE RED BLOOD CELLS (UNIT) Blood Component Type Red Blood Cells Product Code A2601Y88 Unit Status Ready for issue Unit Number [id number] CROSSMATCH Compatible CODING SYSTEM [id number] PREPARE RED BLOOD CELLS (UNIT) ABO/RH TYPE AND SCREEN EKG ECG taken at 1400, ECG read at 1403 Sinus rhythm with 1st degree AV block Inferior infarct, age undetermined No significant change when compared to prior, dated 02/24/24. Rate 82 bpm. PA interval 210 ms. QRS duration 88 ms. QT/QTc 382/446 ms. P-R-T axes 45 -7 24. ED Course Medications Administered Medications - No data to display Discussion of Management Admitting Hospitalist, Dr. Tripathi Social Determinants of Health adding to complexity of care None ED Course ED Course as of 03/02/24 1651 TueMarch 02, 2024 1407 I obtained history and examined the patient as noted above. 1624 I rechecked the patient and explained findings. I obtained consent for blood transfusion. 1630 I spoke with hospitalist, Dr. Tripathi regarding admission. Medical Decision Making / Diagnosis [facility] Diagnoses: None MIPS None MDM Herminio Victor is a 58 year old male presenting with generalized weakness and anemia. He is coming from dialysis, but unfortunately is not clear if he received a full session of dialysis or not.Hemoglobin is 6.3. He is consented and given 2 units of packed red blood cells. He does have a darkstool in the emergency department. He remains hemodynamically stable and there is not an indicationfor emergent scoping by GI at this time. No leukocytosis. He denies any abdominal pain. I discussedthe patient with the hospitalist, agreed to admit the patient to their service. He remains in stable condition and is transferred to the floor. Critical Care time was 15 minutes for this patient excluding procedures. Disposition The patient was admitted to the hospital. ICD-10 Codes: ICD-10-CM 1. Anemia, unspecified type D64.9 2. Black stool K92.1 Discharge Medications New Prescriptions No medications on file Scribe Disclosure: Db Gentile, am serving as a scribe at 2:11 PM on 03/02/2024 to document services personally performed by Raúl Bernard MD based on my observations and the provider's statements to me. Scribe Disclosure: ILAVINIA, am serving as a scribe boxing trainer at 2:09 PM on 03/02/2024 to document services personally performed by Raúl Bernard MD based on my observations and the provider's statements to me. Raúl Bernard MD 03/02/242156 Raúl Bernard MD 03/02/242157 documented in this encounter Miscellaneous Notes * Plan of Care - Fern Soliz RN - 03/12/2024 4:36 PM CDT Pt to D/C to home with family. Pt provided with d/c instructions, including new medications (protonix), when medications were last given, and when to take them again. Spoke w/ aunt Thelma who is in charge of patient's care at home and went through the whole discharge packet with her as patient has a cognitive impairment. She was informed that patient needs to follow up with PCP, and have a repeatcolonoscopy in 7 years as well as an MRI of his lumbar spine which can be arranged with PCP. Patient was to be sent home with a glucometer but sister stated that she has already been checking his blood sugar for years. The glucose monitor is not covered by his insurance but Thelma was informed she can get it over the counter. Pt verbalized understanding of all d/c and f/u instructions. All questions were answered at this time. Copy of paperwork sent with pt. Meds sent with pt. EMS to provide transport. All personal belongings sent with pt. * Pharmacy-Anticoagulation Service - Ryann Armando [facility] - 03/12/2024 2:15 PM CDT Images from the original note were not included. 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 INR Goal= 2-3. Warfarin VACUUM FRAME OPERATOR Regimen: 5mg M-F Anticoagulation Dose History More data exists Latest Ref Rng & Units 03/06/2024 03/07/2024 03/08/2024 03/09/2024 03/10/2024 03/11/2024 03/12/2024 Recent Dosing and Labs warfarin ANTICOAGULANT (COUMADIN) 5 MG tablet - - - - - 5 mg, $Given Providing now at patient request 5 mg, $Given - INR 0.85 - 1.15 1.51 1.28 1.18 1.13 1.18 1.11 1.20 Vitamin K doses administered during the last 7 days: 5mg IV on 03/05 FFP administered during the last 7 days: None Agree with discharging the patient on a warfarin regimen of 5 mg Mon-Fri. The patient should have an INR checked within 7 days or as directed by [facility] . Ryann Armando RPH * Plan of Care - Harriett Jacobsen RN - 03/12/2024 6:47 AM CDT Assumed care Assumed care [phone]. A&Ox3, disoriented to time and can be intermittently confused. Ax1 with a GB and walker when OOB. On RA, cpap at night. On a renal diet and needs help ordering/tray set-up. Midline in L arm SL. Dialysis port to L thigh, bruit & thrill present. Infrequentand nonproductive cough ongoing. Denied pain overnight. BG checks: 132, 107. Plan to dialyze today and then discharge pending Hgb. Goal Outcome Evaluation: Plan of Care Reviewed With: patient Overall Patient Progress: no changeOverall Patient Progress: no change Outcome Evaluation: Denies pain, ACHS BG checks, 1+ UE edema, Problem: Gastrointestinal Bleeding Goal: Hemostasis Outcome: Not Progressing Problem: Comorbidity Management Goal: Blood Pressure in Desired Range Outcome: Not Progressing Intervention: Maintain Blood Pressure Management Recent Flowsheet Documentation Taken 03/11/2024 1950 by Harriett Jacobsen, underwriting account representative Review/Management: medications reviewed Problem: Adult Inpatient Plan of Care Goal: Plan of Care Review Description: The Plan of Care Review/Shift note should be completed every shift. The Outcome Evaluation is a brief statement about your assessment that the patient is improving, declining, or no change. This information will be displayed automatically on your shift note. Outcome: Progressing Flowsheets (Taken 03/12/2024 0044) Outcome Evaluation: Denies pain, ACHS BG checks, 1+ UE edema, Plan of Care Reviewed With: patient Overall [...] Manage Fall Risk Recent Flowsheet Documentation Taken 03/12/20242514 by Harriett Jacobsen RN Safety Promotion/Fall Prevention: safety round/check completed Taken 03/11/20241949 by Harriett Jacobsen RN Safety Promotion/Fall Prevention: activity supervised lighting adjusted nonskid shoes/slippers when out of bed room near nurse's station safety round/check completed Intervention: Prevent Skin Injury Recent Flowsheet Documentation Taken 03/11/20241949 by Harriett Jacobsen RN Body Position: position changed independently Intervention: Prevent and Manage VTE (Venous Thromboembolism) Risk Recent Flowsheet Documentation Taken 03/11/20241949 by Harriett Jacobsen RN VTE Prevention/Management: (Ambulatory) SCDs (sequential compression devices) off Intervention: Prevent Infection Recent Flowsheet Documentation Taken 03/11/20241949 by Harriett Jacobsen RN Infection Prevention: equipment surfaces disinfected hand hygiene promoted personal protective equipment utilized rest/sleep promoted single patient room provided Goal: Optimal Comfort and Wellbeing Outcome: Progressing Goal: Readiness for Transition of Care Outcome: Progressing Problem: Gastrointestinal Bleeding Goal: Optimal Coping with Acute Illness Outcome: Progressing Problem: Glycemic Control Impaired Goal: Blood Glucose Level Within Targeted Range Outcome: Progressing Goal: Minimize Risk of Hypoglycemia Outcome: Progressing Problem: Oral Intake Inadequate Goal: Improved Oral Intake Outcome: Progressing Problem: Comorbidity Management Goal: Blood Glucose Levels Within Targeted Range Outcome: Progressing Intervention: Monitor and Manage Glycemia Recent Flowsheet Documentation Taken 03/11/20241949 by Harriett Jacobsen RN Medication Review/Management: medications reviewed * Plan of Care - Raul Carter RN - 03/11/2024 7:00 PM CDT Goal Outcome Evaluation: Plan of Care Reviewed With: patient, caregiver Overall Patient Progress: no changeOverall Patient Progress: no change Outcome Evaluation: Bp controlled w/ scheduled meds. 1+ edema md MORGAN aware, plan to dyalize 03/12 then discharge pending HGB Assessments: VSS. denied pain. Disoriented to time/forgetful. Up assist of 1 belt/walker, sat in chair for a short time. Thrill/bruit present in dialysis fistula. Midline SL. BG controlled, no hypoglycemia. 1-2 + edema BUE. Major Shift events: NA Treatment Plan: Q12 Hgb checks. Monitor BG, MWF dialysis Bedside Nurse: Raul Carter RN Problem: Adult Inpatient Plan of Care Goal: Plan of Care Review Description: The Plan of Care Review/Shift note should be completed every shift. The Outcome Evaluation is a brief statement about your assessment that the patient is improving, declining, or no change. This information will be displayed automatically on your shift note. Outcome: Progressing Flowsheets (Taken 03/11/2024 185) Outcome Evaluation: Bp controlled w/ scheduled meds. 1+ edema UE, aware, plan to dyalize 03/12 then discharge pending HGB Plan of Care Reviewed With: patient caregiver Overall Patient Progress: no change Goal: Patient-Specific [...] Manage Fall Risk Recent Flowsheet Documentation Taken 03/11/2024835 by Raul Carter RN Safety Promotion/Fall Prevention: activity supervised increase visualization of patient lighting adjusted nonskid shoes/slippers when out of bed room near nurse's station safety round/check completed Goal: Optimal Comfort and Wellbeing Outcome: Progressing Goal: Readiness for Transition of Care Outcome: Progressing Problem: Gastrointestinal Bleeding Goal: Optimal Coping with Acute Illness Outcome: Progressing Goal: Hemostasis Outcome: Progressing Problem: Glycemic Control Impaired Goal: Blood Glucose Level Within Targeted Range Outcome: Progressing Goal: Minimize Risk of Hypoglycemia Outcome: Progressing Problem: Oral Intake Inadequate Goal: Improved Oral Intake Outcome: Progressing Problem: Comorbidity Management Goal: Blood Glucose Levels Within Targeted Range Outcome: Progressing Intervention: Monitor and Manage Glycemia Recent Flowsheet Documentation Taken 03/11/2024835 by Raul Carter underwriting account representative Review/Management: medications reviewed Goal: Blood Pressure in Desired Range Outcome: Progressing Intervention: Maintain Blood Pressure Management Recent Flowsheet Documentation Taken 03/11/2024 08 by Raul Carter underwriting account representative Review/Management: medications reviewed * Plan of Care - Harriett Jacobsen RN - 03/11/2024 5:48 AM CDT Assumed care [id number]. A&Ox4, but can be confused intermittently. On RA and cpap at night. On a renal diet and needs help ordering/tray set-up. Has midline to L arm that is saline locked. Got 1 unit of blood. BG checks: 148, 120, 94. BOARDING MOTHER called overnight, see progress notes from law writer, MD, and respiratory. Denies pain. Plan of care ongoing. Goal Outcome Evaluation: Plan of Care Reviewed With: patient Overall Patient Progress: no changeOverall Patient Progress: no change Outcome Evaluation: HTN overnight, blood administered, BG checks ACHS, denies pain Problem: Gastrointestinal Bleeding Goal: Hemostasis Outcome: Not Progressing Problem: Comorbidity Management Goal: Blood Pressure in Desired Range Outcome: Not Progressing Intervention: Maintain Blood Pressure Management Recent Flowsheet Documentation Taken 03/10/20242319 by Harriett Jacobsen RN Medication Review/Management: medications reviewed Problem: Adult Inpatient Plan of Care Goal: Plan of Care Review Description: The Plan of Care Review/Shift note should be completed every shift. The Outcome Evaluation is a brief statement about your assessment that the patient is improving, declining, or no change. This information will be displayed automatically on your shift note. Outcome: Progressing Flowsheets (Taken 03/11/2024 0426) Outcome Evaluation: HTN overnight, blood administered, BG checks ACHS, denies pain Plan of Care Reviewed With: [...] Manage Fall Risk Recent Flowsheet Documentation Taken 03/10/20242319 by Harriett Jacobsen RN Safety Promotion/Fall Prevention: activity supervised increase visualization of patient lighting adjusted nonskid shoes/slippers when out of bed room near nurse's station safety round/check completed Intervention: Prevent Skin Injury Recent Flowsheet Documentation Taken 03/10/20242319 by Harriett Jacobsen RN Body Position: position changed independently Intervention: Prevent and Manage VTE (Venous Thromboembolism) Risk Recent Flowsheet Documentation Taken 03/10/20242319 by Harriett Jacobsen RN VTE Prevention/Management: (Ambulatory) SCDs (sequential compression devices) off Goal: Optimal Comfort and Wellbeing Outcome: Progressing Goal: Readiness for Transition of Care Outcome: Progressing Problem: Gastrointestinal Bleeding Goal: Optimal Coping with Acute Illness Outcome: Progressing Problem: Glycemic Control Impaired Goal: Blood Glucose Level Within Targeted Range Outcome: Progressing Goal: Minimize Risk of Hypoglycemia Outcome: Progressing Problem: Oral Intake Inadequate Goal: Improved Oral Intake Outcome: Progressing Problem: Comorbidity Management Goal: Blood Glucose Levels Within Targeted Range Outcome: Progressing Intervention: Monitor and Manage Glycemia Recent Flowsheet Documentation Taken 03/10/20242319 by Harriett Jacobsen RN Medication Review/Management: medications reviewed * Provider Notification - Harriett Jacobsen RN - 03/11/2024 2:41 AM CDT MD Notification Notified Person: Main diaz MD Notified Person Name: Andie Zhang Notification Date/Time: 03/11/2024240 Mechanism of Provider Notification: [employer] Purpose of Notification: FYI- Patient got 1U of blood earlier this evening. Finished around 11pm. Now patient has vomited x1. Orders Received: Comments: * Plan of Care - Raul Carter RN - 03/10/2024 6:08 PM CDT Goal Outcome Evaluation: Plan of Care Reviewed With: patient, family Overall Patient Progress: no changeOverall Patient Progress: no change Outcome Evaluation: HGB 7.0, await 1800 check. D10 infusion stopped, no hypoglycemia noted. Assessments: BP elevated 178/53, controlled w/ scheduled meds, last check 140/52. Otherwise VSS. Denied pain. Oriented x4 w/ intermittent confusion. Ax1 Belt/walker to restroom. Incontinent of bowel x2. Midline SL. BG controlled, see results for details. Frequently asking for more food/high sodium foods. Attempted to educate patient on renal diet. Needs assist w/ ordering. Major Shift events: HGB 7.0, did not transfuse per md, await 1800 recheck. Treatment Plan: Q12 Hgb checks. Monitor BG, MWF dialysis, restart coumadin. Bedside Nurse: Raul Carter RN Problem: Adult Inpatient Plan of Care Goal: Plan of Care Review Description: The Plan of Care Review/Shift note should be completed every shift. The Outcome Evaluation is a brief statement about your assessment that the patient is improving, declining, or no change. This information will be displayed automatically on your shift note. Outcome: Progressing Flowsheets (Taken 03/10/2024 1807) Outcome Evaluation: HGB 7.0, await 1800 check. D10 infusion stopped, no hypoglycemia noted. Plan of Care Reviewed With: patient family Overall Patient Progress: no change Goal: Patient-Specific [...] Manage Fall Risk Recent Flowsheet Documentation Taken 03/10/2024 1000 by Raul Carter RN Safety Promotion/Fall Prevention: safety round/check completed treat reversible contributory factors room near nurse's station room door open lighting adjusted assistive device/personal items within reach clutter free environment maintained increased rounding and observation mobility aid in reach nonskid shoes/slippers when out of bed patient and family education room organization consistent Goal: Optimal Comfort and Wellbeing Outcome: Progressing Goal: Readiness for Transition of Care Outcome: Progressing Problem: Gastrointestinal Bleeding Goal: Optimal Coping with Acute Illness Outcome: Progressing Goal: Hemostasis Outcome: Progressing Problem: Glycemic Control Impaired Goal: Blood Glucose Level Within Targeted Range Outcome: Progressing Goal: Minimize Risk of Hypoglycemia Outcome: Progressing Problem: Oral Intake Inadequate Goal: Improved Oral Intake Outcome: Progressing * Pharmacy-Anticoagulation Service - Nivia Mahan [facility] - 03/10/2024 12:35 PM CDT Clinical Pharmacy - Warfarin Dosing Consult Pharmacy has been consulted to manage this patient???s warfarin therapy. 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 Pharmacy will monitor Herminio Victor daily and order warfarin doses to achieve specified goal. Please contact pharmacy as soon as possible if the warfarin needs to be held for a procedure or if the warfarin goals change. Arabella Mahan, PharmD March 10, 2024 * Provider Notification - Raul Carter RN - 03/10/2024 8:12 AM CDT Md notified, HGB 7.0, plan to transfuse 1 UPRBC for conditional order to transfuse 7 or less * Plan of Care - Mann Clark RN - 03/09/2024 10:48 PM CDT Assessments: Alert, confused. VSS. On room air. Denies SoB, pain, nausea. Ax1 with belt and walker. D10% infusing at 40ml/hr via midline on LUE. BG 147 and 159. Incontinent at times. Hgb remained 7.6 with recheck Treatment Plan: Q6 Hgb checks. Monitor BG, MWF dialysis Bedside Nurse: Mann Clark RN Problem: Adult Inpatient Plan of Care Goal: Plan of Care Review Description: The Plan of Care Review/Shift note should be completed every shift. The Outcome Evaluation is a brief statement about your assessment that the patient is improving, declining, or no change. This information will be displayed automatically on your shift note. Outcome: Progressing Flowsheets (Taken 03/09/20242246) Outcome Evaluation: Hgb 7.6 with recheck Goal: Patient-Specific Goal (Individualized) Description: You can [...] Manage Fall Risk Recent Flowsheet Documentation Taken 03/09/2024 1800 by Mann Clark RN Safety Promotion/Fall Prevention: safety round/check completed treat reversible contributory factors room near nurse's station room door open lighting adjusted increase visualization of patient assistive device/personal items within reach Intervention: Prevent Skin Injury Recent Flowsheet Documentation Taken 03/09/2024 1800 by Mann Clark RN Body Position: weight shifting Intervention: Prevent and Manage VTE (Venous Thromboembolism) Risk Recent Flowsheet Documentation Taken 03/09/2024 1800 by Mann Clark RN VTE Prevention/Management: SCDs (sequential compression devices) off Intervention: Prevent Infection Recent Flowsheet Documentation Taken 03/09/2024 1800 by Mann Clark RN Infection Prevention: single patient room provided rest/sleep promoted environmental surveillance performed Goal: Optimal Comfort and Wellbeing Outcome: Progressing Goal: Readiness for Transition of Care Outcome: Progressing Problem: Gastrointestinal Bleeding Goal: Optimal Coping with Acute Illness Outcome: Progressing Goal: Hemostasis Outcome: Progressing Problem: Glycemic Control Impaired Goal: Blood Glucose Level Within Targeted Range Outcome: Progressing Goal: Minimize Risk of Hypoglycemia Outcome: Progressing Problem: Oral Intake Inadequate Goal: Improved Oral Intake Outcome: Progressing Goal Outcome Evaluation: Outcome Evaluation: Hgb 7.6 with recheck * Plan of Care - Maeve Shipley RN - 03/09/2024 3:36 PM CDT Pt A&Ox4, intermittent confusion noted. VSS except elevated BP, MD notified and scheduled BP meds given. Weaned to RA. Denies pain, SOB, nausea. Assist 1 with GB and walker. Renal diet. D50 infusing at 40ml/hr. Midline SL CDI, dressing changed today. BG 91, 150, 1 unit of insulin given. Incontinent at times. Dialysis done today, fistula CDI. Hemoglobin this morning 7.5, 7.6 this afternoon. Bed alarm on for safety. Major Shift Events: Dialysis today. Treatment Plan: Q6* HgB. Transfuse <7. Monitor RBG, D10 unless over 200. Bed alarm. Dialysis perroutine. Bedside Nurse: Maeve Shipley RN Problem: Adult Inpatient Plan of Care Goal: Plan of Care Review Description: The Plan of Care Review/Shift note should be completed every shift. The Outcome Evaluation is a brief statement about your assessment that the patient is improving, declining, or no change. This information will be displayed automatically on your shift note. Outcome: Progressing Flowsheets (Taken 03/09/2024 1536) Outcome Evaluation: Hemoglobin 7.6. BG stable today. No pain. Plan of Care Reviewed With: patient [...] Manage Fall Risk Recent Flowsheet Documentation Taken 03/09/2024 0810 by Maeve Shipley RN Safety Promotion/Fall Prevention: safety round/check completed Intervention: Prevent and Manage VTE (Venous Thromboembolism) Risk Recent Flowsheet Documentation Taken 03/09/2024 0810 by Maeve Shipley RN VTE Prevention/Management: SCDs (sequential compression devices) off Intervention: Prevent Infection Recent Flowsheet Documentation Taken 03/09/2024 0810 by Maeve Shipley RN Infection Prevention: single patient room provided rest/sleep promoted environmental surveillance performed Goal: Optimal Comfort and Wellbeing Outcome: Progressing Intervention: Monitor Pain and Promote Comfort Recent Flowsheet Documentation Taken 03/09/2024 0810 by Maeve Shipley RN Pain Management Interventions: declines Goal: Readiness for Transition of Care Outcome: Progressing Problem: Gastrointestinal Bleeding Goal: Optimal Coping with Acute Illness Outcome: Progressing Goal: Hemostasis Outcome: Progressing Problem: Glycemic Control Impaired Goal: Blood Glucose Level Within Targeted Range Outcome: Progressing Goal: Minimize Risk of Hypoglycemia Outcome: Progressing Problem: Oral Intake Inadequate Goal: Improved Oral Intake Outcome: Progressing Goal Outcome Evaluation: Plan of Care Reviewed With: patient Overall Patient Progress: improvingOverall Patient Progress: improving Outcome Evaluation: Hemoglobin 7.6. BG stable today. No pain. * Plan of Care - Suzanna Ovalles RN - 03/09/2024 6:39 AM CDT Pt alert but some confusion noted. Bipap while sleeping. Lungs clear/dim. Murmur noted. Skin intactwith occasional fecal incontinence. Pt is dialysis patient MWF. Turned with assist. Bed alarm on. RBG 124/112 Major Shift Events: Uneventful night, slept well. No significant change in condition. Treatment Plan: Q6* HgB. Transfuse <7. Monitor RBG, D10 unless over 200. Bed alarm. Dialysis per routine. Problem: Adult Inpatient Plan of Care Goal: Plan of Care Review Description: The Plan of Care Review/Shift note should be completed every shift. The Outcome Evaluation is a brief statement about your assessment that the patient is improving, declining, or no change. This information will be displayed automatically on your shift note. Outcome: Progressing Flowsheets (Taken 03/09/2024 0638) Outcome Evaluation: HgB 7.5 CPAP overnight, slept well. Denies pain. Plan of Care Reviewed With: patient [...] Manage Fall Risk Recent Flowsheet Documentation Taken 03/09/2024 0000 by Suzanna Ovalles RN Safety Promotion/Fall Prevention: safety round/check completed Intervention: Prevent Skin Injury Recent Flowsheet Documentation Taken 03/09/2024 0000 by Suzanna Ovalles RN Body Position: position changed independently Skin Protection: incontinence pads utilized Goal: Optimal Comfort and Wellbeing Outcome: Progressing Goal: Readiness for Transition of Care Outcome: Progressing Problem: Gastrointestinal Bleeding Goal: Optimal Coping with Acute Illness Outcome: Progressing Goal: Hemostasis Outcome: Progressing Problem: Glycemic Control Impaired Goal: Blood Glucose Level Within Targeted Range Outcome: Progressing Goal: Minimize Risk of Hypoglycemia Outcome: Progressing Problem: Oral Intake Inadequate Goal: Improved Oral Intake Outcome: Progressing * Plan of Care - Diego Osei RN - 03/08/2024 11:07 PM CDT Pertinent assessments: Pt A&Ox4, VSS on 2L NC. Afebrile. Denies pain, nausea, SOB. Assist of 1 with GB and walker. Tolerating Renal diet, denies N/V.Midline SL, minimal return noted. Incontinent of bowel and bladder, Up assist of 2 with gait belt and walker to bedside commode. Hemoglobin 7.5 onrecheck. BG 69, 62, 99, IV dextrose 10 infusing, rechecks back up to 114/116. Midline SL. Fistula si te dressing CDI Major Shift Events: HGB recheck 7.5 Treatment Plan: Hemoglobin management q 6 hecks, symptom management. Problem: Adult Inpatient Plan of Care Goal: Plan of Care Review Description: The Plan of Care Review/Shift note should be completed every shift. The Outcome Evaluation is a brief statement about your assessment that the patient is improving, declining, or no change. This information will be displayed automatically on your shift note. 03/08/20242306 by Diego Osei RN Outcome: Progressing 03/08/20242304 by Diego Osei, LINDA Outcome: Progressing Flowsheets (Taken 03/08/20242304) Outcome Evaluation: HGB 7.5, denies pain/SOB/Nausea Plan of Care Reviewed With: patient Overall [...] wake me up as it startles me. 03/08/20242306 by Diego Osei RN Outcome: Progressing 03/08/20242304 by Diego Osei RN Outcome: Progressing Goal: Absence of Hospital-Acquired Illness or Injury 03/08/20242306 by Diego Osei RN Outcome: Progressing 03/08/20242304 by Diego Osei RN Outcome: Progressing Intervention: Identify and Manage Fall Risk Recent Flowsheet Documentation Taken 03/08/20241823 by Diego Osei RN Safety Promotion/Fall Prevention: activity supervised Intervention: Prevent and Manage VTE (Venous Thromboembolism) Risk Recent Flowsheet Documentation Taken 03/08/20241823 by Diego Osei RN VTE Prevention/Management: SCDs (sequential compression devices) off Intervention: Prevent Infection Recent Flowsheet Documentation Taken 03/08/20241823 by Diego Osei RN Infection Prevention: single patient room provided rest/sleep promoted environmental surveillance performed Goal: Optimal Comfort and Wellbeing 03/08/20242306 by Diego Osei RN Outcome: Progressing 03/08/20242304 by Diego Osei RN Outcome: Progressing Intervention: Monitor Pain and Promote Comfort Recent Flowsheet Documentation Taken 03/08/20241823 by Diego Osei RN Pain Management Interventions: declines Goal: Readiness for Transition of Care 03/08/20242306 by Diego Osei RN Outcome: Progressing 03/08/20242304 by Diego Osei RN Outcome: Progressing Goal Outcome Evaluation: Plan of Care Reviewed With: patient Overall Patient Progress: no changeOverall Patient Progress: no change Outcome Evaluation: HGB 7.5, denies pain/SOB/Nausea * Plan of Care - Diego Osei RN - 03/08/2024 11:05 PM CDT Pertinent assessments: Pt A&Ox4, VSS on 2L NC. Afebrile. Denies pain, nausea, SOB. Assist of 1 with GB and walker. Tolerating Renal diet, denies N/V.Midline SL, minimal return noted. Incontinent of bowel and bladder, Up assist of 2 with gait belt and walker to bedside commode. Hemoglobin 7.5 onrecheck. BG 69, 62, 99, IV dextrose 10 infusing, rechecks back up to 114/116. Midline SL. Fistula si te dressing CDI Major Shift Events: HGB recheck 7.5 Treatment Plan: Hemoglobin management q 6 hecks, symptom management. Problem: Adult Inpatient Plan of Care Goal: Plan of Care Review Description: The Plan of Care Review/Shift note should be completed every shift. The Outcome Evaluation is a brief statement about your assessment that the patient is improving, declining, or no change. This information will be displayed automatically on your shift note. Outcome: Progressing Flowsheets (Taken 03/08/2024 2305) Outcome Evaluation: HGB 7.5, denies pain/SOB/Nausea Plan of Care Reviewed With: patient Overall [...] Manage Fall Risk Recent Flowsheet Documentation Taken 03/08/20241823 by Diego Osei RN Safety Promotion/Fall Prevention: activity supervised Intervention: Prevent and Manage VTE (Venous Thromboembolism) Risk Recent Flowsheet Documentation Taken 03/08/20241823 by Diego Osei RN VTE Prevention/Management: SCDs (sequential compression devices) off Intervention: Prevent Infection Recent Flowsheet Documentation Taken 03/08/20241823 by Diego Osei RN Infection Prevention: single patient room provided rest/sleep promoted environmental surveillance performed Goal: Optimal Comfort and Wellbeing Outcome: Progressing Intervention: Monitor Pain and Promote Comfort Recent Flowsheet Documentation Taken 03/08/20241823 by Diego Osei RN Pain Management Interventions: declines Goal: Readiness for Transition of Care Outcome: Progressing Goal Outcome Evaluation: Plan of Care Reviewed With: patient Overall Patient Progress: no changeOverall Patient Progress: no change Outcome Evaluation: HGB 7.5, denies pain/SOB/Nausea * Plan of Care - Maeve Shipley RN - 03/08/2024 3:46 PM CDT To Do: End of Shift Summary For vital signs and complete assessments, please see documentation flowsheets. Pertinent assessments: Pt A&Ox4, VSS on 2L NC. Afebrile. Denies pain, nausea, SOB. Assist of 1 with GB and walker. NPO for colonoscopy, resume renal diet after. Colonoscopy done at 12:00 pm. Midline SL. Incontinent at times. Hemoglobin 6.7 today, 1 unit given. BG 85, 65 IV dextrose given, BG back up to 112. Bed alarm on for safety. Major Shift Events: Colonoscopy done today. Treatment Plan: Hemoglobin management q 6 hecks, symptom management. Bedside Nurse: Maeve Shipley RN Problem: Adult Inpatient Plan of Care Goal: Plan of Care Review Description: The Plan of Care Review/Shift note should be completed every shift. The Outcome Evaluation is a brief statement about your assessment that the patient is improving, declining, or no change. This information will be displayed automatically on your shift note. Outcome: Progressing Flowsheets (Taken 03/08/2024 1545) Outcome Evaluation: 1 unit of blood given. Colonoscopy done. BG low today due to NPO. Plan of Care Reviewed With: patient Overall [...] Hospital-Acquired Illness or Injury Outcome: Progressing Intervention: Prevent and Manage VTE (Venous Thromboembolism) Risk Recent Flowsheet Documentation Taken 03/08/2024 0817 by Maeve Shipley RN VTE Prevention/Management: SCDs (sequential compression devices) off Goal: Optimal Comfort and Wellbeing Outcome: Progressing Intervention: Monitor Pain and Promote Comfort Recent Flowsheet Documentation Taken 03/08/2024 0817 by Maeve Shipley RN Pain Management Interventions: declines Goal: Readiness for Transition of Care Outcome: Progressing Problem: Gastrointestinal Bleeding Goal: Optimal Coping with Acute Illness Outcome: Progressing Goal: Hemostasis Outcome: Progressing Problem: Glycemic Control Impaired Goal: Blood Glucose Level Within Targeted Range Outcome: Progressing Goal: Minimize Risk of Hypoglycemia Outcome: Progressing Problem: Oral Intake Inadequate Goal: Improved Oral Intake Outcome: Progressing Goal Outcome Evaluation: Plan of Care Reviewed With: patient Overall Patient Progress: improvingOverall Patient Progress: improving Outcome Evaluation: 1 unit of blood given. Colonoscopy done. BG low today due to NPO. * Pre-Procedure - Eileen Earl MD - 03/08/2024 12:56 PM CDT Pre-Endoscopy History and Physical Herminio Victor Date of : 1965 Age: [age] year old Date of Procedure: 03/02/2024 Primary care provider: Cornell Butt Type of Endoscopy: colonoscopy Reason for Procedure: anemia Type of Anesthesia Anticipated: Moderate (conscious) sedation HPI: Herminio is a 58 year old male who will be undergoing the above procedure. A history and physical has been performed. The patient's medications and allergies have been reviewed. The risks and benefits of the procedure and the sedation options and risks were discussed with the patient. All questions were answered and informed consent was obtained. Allergies Allergen Reactions Dihydroxyaluminum Aminoacetate Nausea GI bleeding Aspirin GI Disturbance and Rash PN: LW Reaction: unknown Current Facility-Administered Medications Medication Dose Route Frequency Provider Last Rate Last Admin - MEDICATION INSTRUCTIONS for Dialysis Patients - Does not apply See Admin Instructions Eileen Earl MD acetaminophen (TYLENOL) tablet 650 mg 650 mg Oral Q4H PRN Eileen Earl MD Or acetaminophen (TYLENOL) Suppository 650 mg 650 mg Rectal Q4H PRN Eileen Earl MD amLODIPine (NORVASC) tablet 5 mg 5 mg Oral Daily Eileen Earl MD 5 mg at 03/08/24 08 atorvastatin (LIPITOR) tablet 20 mg 20 mg Oral QPM Eileen Earl MD 20 mg at 03/07/242014 calcium acetate (PHOSLO) capsule 667 mg 667 mg Oral TID w/meals Eileen Earl MD 667 mg at 03/08/24821 calcium acetate (PHOSLO) capsule 667 mg 667 mg Oral With Snacks or Supplements Eileen Earl MD calcium carbonate (TUMS) chewable tablet 1,000 mg 1,000 mg Oral 4x Daily PRN Eileen Earl MD dextrose 10% infusion Intravenous Continuous Eileen Earl MD Stopped at 03/07/24 0542 glucose gel 15-30 g 15-30 g Oral Q15 Min PRN Eileen Earl MD 30 g at 03/04/24 1312 Or dextrose 50 % injection 25-50 mL 25-50 mL Intravenous Q15 Min PRN Eileen Earl MD 25 mL at 03/08/24 1115 Or glucagon injection 1 mg 1 mg Subcutaneous Q15 Min PRN Eileen Earl MD insulin aspart (NovoLOG) injection (RAPID ACTING) 1-4 Units Subcutaneous Q4H Antonino Cheek MD lidocaine (LMX4) cream Topical Q1H PRN Eileen Earl MD lidocaine 1 % 0.1-1 mL 0.1-1 mL Other Q1H PRN Eileen Earl MD metoprolol tartrate (LOPRESSOR) tablet 100 mg 100 mg Oral QAM Eileen Earl MD 100 mg at 03/08/24 0821 multivitamin RENAL (TRIPHROCAPS) capsule Oral QPM Eileen Earl MD 1 mg at 03/07/242014 naloxone (NARCAN) injection 0.2 mg 0.2 mg Intravenous Q2 Min PRN Eileen Earl MD Or naloxone (NARCAN) injection 0.4 mg 0.4 mg Intravenous Q2 Min PRN Eileen Earl MD Or naloxone (NARCAN) injection 0.2 mg 0.2 mg Intramuscular Q2 Min PRN Eileen Earl MD Or naloxone (NARCAN) injection 0.4 mg 0.4 mg Intramuscular Q2 Min PRN Eileen Earl MD No heparin via hemodialysis machine Does not apply Once Jose Enrique Naylor MD ondansetron (ZOFRAN ODT) ODT tab 4 mg 4 mg Oral Q6H PRN Eileen Earl MD Or ondansetron (ZOFRAN) injection 4 mg 4 mg Intravenous Q6H PRN Eileen Earl MD pantoprazole (PROTONIX) EC tablet 40 mg 40 mg Oral BID AC Eileen Earl MD 40 mg at 822 senna-docusate (SENOKOT-S/PERICOLACE) 8.6-50 MG per tablet 1 tablet 1 tablet Oral BID PRN Eileen Earl MD Or senna-docusate (SENOKOT-S/PERICOLACE) 8.6-50 MG per tablet 2 tablet 2 tablet Oral BID PRN Eileen Earl MD sennosides (SENOKOT) tablet 2 tablet 2 tablet Oral Every Other Day Eileen Earl MD 2 tabletat 03/04/24 0900 sodium chloride (PF) 0.9% PF flush 10 mL 10 mL Intracatheter Q8H Antonino Cheek MD 10 mL at 03/08/24 0824 sodium chloride (PF) 0.9% PF flush 10-20 mL 10-20 mL Intracatheter q1 min prn Antonino Cheek MD sodium chloride (PF) 0.9% PF flush 3 mL 3 mL Intracatheter q1 min prn Eileen Earl MD sodium chloride (PF) 0.9% PF flush 3 mL 3 mL Intracatheter q1 min prn Eileen Earl MD sodium chloride (PF) 0.9% PF flush 3 mL 3 mL Intracatheter q1 min prn Eileen Earl MD 3 mL at 03/04/24 0901 sodium chloride 0.9 % infusion Intravenous Continuous Eileen Earl MD 10 mL/hr at 03/06/24 1252 New Bag at 03/06/24 1252 sodium chloride 0.9% BOLUS 100-150 mL 100-150 mL Intravenous Q15 Min PRN Jose Enrique Naylor MD Facility-Administered Medications Ordered in Other Encounters Medication Dose Route Frequency Provider Last Rate Last Admin heparin 100 UNIT/ML Lock Flush SOLN Patient Active Problem List Diagnosis Fistula End stage renal disease (H) Clotted renal dialysis arteriovenous graft (H24) Clotted renal dialysis AV graft (H24) Post-op pain ESRD (end stage renal disease) (H) Fever Problem with dialysis access (H24) Aneurysm of arteriovenous dialysis fistula (H24) Fever and chills History of staph septicemia Postoperative observation Foot ulcer, left (H) 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) Foot ulcer (H) ESRD on dialysis (H) Altered mental status, unspecified altered mental status type Gastrointestinal hemorrhage, unspecified gastrointestinal hemorrhage type Anemia, unspecified type Black stool Past Medical History: Diagnosis Date A-V fistula (H24) left forearm Anemia Anemia Blind Chronic in-center hemodialysis status (H24) Cognitive deficits Diabetes mellitus (H) DVT (deep venous thrombosis) (H) ESRD (end stage renal disease) (H) dialysis [facility] History of staph septicemia 12/20/2015 Hyperkalemia Hyperlipemia [...] GRAFT EMBOLECTOMY; Surgeon: Jaxon Buenrostro MD; Location: OR [facility] CATH AV DIALYSIS SHUNT left thigh 05/23 CREATE FISTULA ARTERIOVENOUS LOWER EXTREMITY 06/20/2013 Procedure: CREATE FISTULA ARTERIOVENOUS LOWER EXTREMITY; LEFT GROIN PTFE DIALYSIS ACCESS; Surgeon: Jaxon Buenrostro MD; Location: OR CREATE FISTULA ARTERIOVENOUS LOWER EXTREMITY Left 07/02/2015 Procedure: CREATE FISTULA ARTERIOVENOUS LOWER EXTREMITY; Surgeon: Jaxon Buenrostro MD; Location: OR CREATE FISTULA ARTERIOVENOUS LOWER EXTREMITY Left 03/05/2016 Procedure: CREATE FISTULA ARTERIOVENOUS LOWER EXTREMITY; Surgeon: Jaxon Buenrostro MD; Location: OR CREATE FISTULA ARTERIOVENOUS UPPER EXTREMITY 10/20/2011 Procedure:CREATE FISTULA ARTERIOVENOUS UPPER EXTREMITY; VEIN PATCH RIGHT ARM ARTERIOVENOUS FISTULA WITH BOVINE PATCH; Surgeon:JAXON BUENROSTRO; Location: OR CREATE GRAFT LOOP ARTERIOVENOUS LOWER EXTREMITY 05/03/2012 Procedure: CREATE GRAFT LOOP ARTERIOVENOUS LOWER EXTREMITY; RIGHT GROIN LOOP GRAFT WITH CADAVER FEMORAL ARTERY; Surgeon: Jaxon Buenrostro MD; Location: OR CREATE GRAFT LOOP ARTERIOVENOUS LOWER EXTREMITY Left 08/13/2015 Procedure: CREATE GRAFT ARTERIOVENOUS LOWER EXTREMITY; Surgeon: Jaxon Buenrostro MD; Location: OR ESOPHAGOSCOPY, GASTROSCOPY, DUODENOSCOPY (EGD), COMBINED N/A 02/25/2024 Procedure: Esophagoscopy, gastroscopy, duodenoscopy (EGD), combined; Surgeon: Benjie Flores MD; Location: GI ESOPHAGOSCOPY, GASTROSCOPY, DUODENOSCOPY (EGD), COMBINED N/A 03/06/2024 Procedure: ESOPHAGOGASTRODUODENOSCOPY; Surgeon: Eileen Earl MD; Location: OR GENITOURINARY SURGERY TURP,CIRCUMCISION INSERT CATHETER VENOUS TRANSLUMBAR 08/08/2012 Procedure: INSERT CATHETER VENOUS TRANSLUMBAR; LUMBAR TUNNEL CATH PLACEMENT.; Surgeon: Michele Fuentes MD; Location: OR IR DIALYSIS FISTULOGRAM LEFT 01/25/2019 IR DIALYSIS FISTULOGRAM LEFT 10/02/2019 IR DIALYSIS FISTULOGRAM LEFT 03/18/2020 IR DIALYSIS FISTULOGRAM LEFT 02/11/2022 IRRIGATION AND DEBRIDEMENT FOOT, COMBINED Left 12/16/2017 Procedure: COMBINED IRRIGATION AND DEBRIDEMENT FOOT;; Surgeon: Jaxon Buenrostro MD; Location: OR IRRIGATION AND DEBRIDEMENT LOWER EXTREMITY, COMBINED Left 06/04/2014 Procedure: COMBINED IRRIGATION AND DEBRIDEMENT LOWER EXTREMITY; Surgeon: Jaxon Buenrostro MD; Location: [place] IRRIGATION AND DEBRIDEMENT LOWER EXTREMITY, COMBINED Left 12/19/2015 Procedure: COMBINED IRRIGATION AND DEBRIDEMENT LOWER EXTREMITY; Surgeon: Honorio Aceves MD; Location: OR REVISION FISTULA ARTERIOVENOUS LOWER EXTREMITY 05/08/2014 Procedure: REVISION FISTULA ARTERIOVENOUS LOWER EXTREMITY; Surgeon: Jaxon Buenrostro MD; Location: [place] REVISION FISTULA ARTERIOVENOUS LOWER EXTREMITY Left 06/04/2014 Procedure: REVISION FISTULA ARTERIOVENOUS LOWER EXTREMITY; Surgeon: Jaxon Buenrostro MD; Location: [place] REVISION FISTULA ARTERIOVENOUS LOWER EXTREMITY Left 11/19/2015 Procedure: REVISION FISTULA ARTERIOVENOUS LOWER EXTREMITY; Surgeon: Jaxon Buenrostro MD; Location: OR REVISION FISTULA ARTERIOVENOUS LOWER EXTREMITY Left 12/16/2017 Procedure: REVISION FISTULA ARTERIOVENOUS LOWER EXTREMITY; LEFT THIGH ABF FISTOGRAM, ANGIOPLASTY OFOUTFLOW VENOUS STENOSIS, BANDING LEFT ABF, IRRIGATION AND DEBRIDEMENT LEFT FOOT ULCER (C-ARM); Surgeon: Jaxon Buenrostro MD; Location: OR THROMBECTOMY LOWER EXTREMITY 08/09/2012 Procedure: THROMBECTOMY LOWER EXTREMITY;; Surgeon: Jaxon Buenrostro MD; Location: OR Social History Tobacco Use Smoking status: Never Smokeless tobacco: Never Substance Use Topics Alcohol use: No Family History Family history unknown: Yes Medications: Medications Prior to Admission Medication Sig Dispense Refill Last Dose amLODIPine (NORVASC) 5 MG tablet Take 5 mg by mouth daily 03/02/2024 at AM atorvastatin (LIPITOR) 20 MG tablet Take 1 tablet (20 mg) by mouth every evening 30 tablet 3 03/01/2024 at PM B Ezavejm-O-Dabov Acid (WESCAPS PO) Take 1 capsule by mouth every evening 03/01/2024 at PM calcium acetate (PHOSLO) 667 MG CAPS capsule Take 1 capsule (667 mg)by mouth 3 times daily with meals 03/02/2024 at x1 calcium acetate (PHOSLO) 667 MG CAPS capsule Take 1 capsule (667 mg) once daily with a snack Unknown metoprolol tartrate (LOPRESSOR) 100 MG tablet Take 100 mg by mouth every morning 03/02/2024 at AM sennosides (SENOKOT) 8.6 MG tablet Take 2 tablets by mouth every other day 03/01/2024 warfarin ANTICOAGULANT (COUMADIN) 5 MG tablet Take 1 tablet (5 mg) by mouth Tuesday through Tuesday03/01/2024 at PM Scheduled Medications: Current Facility-Administered Medications Medication Dose Route Frequency Provider Last Rate Last Admin - MEDICATION INSTRUCTIONS for Dialysis Patients - Does not apply See Admin Instructions Eileen Earl MD amLODIPine (NORVASC) tablet 5 mg 5 mg Oral Daily Eileen Earl MD 5 mg at 03/08/24 0822 atorvastatin (LIPITOR) tablet 20 mg 20 mg Oral QPM Eileen Earl MD 20 mg at 03/07/242014 calcium acetate (PHOSLO) capsule 667 mg 667 mg Oral TID w/meals Eileen Earl MD 667 mg at 03/08/24 0822 insulin aspart (NovoLOG) injection (RAPID ACTING) 1-4 Units Subcutaneous Q4H Antonino Cheek MD metoprolol tartrate (LOPRESSOR) tablet 100 mg 100 mg Oral QAM Eileen Earl MD 100 mg at 03/08/24 0821 multivitamin RENAL (TRIPHROCAPS) capsule Oral QPM Eileen Earl MD 1 mg at 03/07/242014 No heparin via hemodialysis machine Does not apply Once Jose Enrique Naylor MD pantoprazole (PROTONIX) EC tablet 40 mg 40 mg Oral BID AC Eileen Earl MD 40 mg at 822 sennosides (SENOKOT) tablet 2 tablet 2 tablet Oral Every Other Day Eileen Earl MD 2 tabletat 03/04/24 0900 sodium chloride (PF) 0.9% PF flush 10 mL 10 mL Intracatheter Q8H Antonino Cheek MD 10 mL at 03/08/24 0824 PRN: Current Facility-Administered Medications Medication Dose Route Frequency Provider Last Rate Last Admin acetaminophen (TYLENOL) tablet 650 mg 650 mg Oral Q4H PRN Eileen Earl MD Or acetaminophen (TYLENOL) Suppository 650 mg 650 mg Rectal Q4H PRN Eileen Earl MD calcium acetate (PHOSLO) capsule 667 mg 667 mg Oral With Snacks or Supplements Eileen Earl MD calcium carbonate (TUMS) chewable tablet 1,000 mg 1,000 mg Oral 4x Daily PRN Eileen Earl MD glucose gel 15-30 g 15-30 g Oral Q15 Min PRN Eileen Earl MD 30 g at 03/04/24 1312 Or dextrose 50 % injection 25-50 mL 25-50 mL Intravenous Q15 Min PRN Eileen Earl MD 25 mL at 03/08/24 1115 Or glucagon injection 1 mg 1 mg Subcutaneous Q15 Min PRN Eileen Earl MD lidocaine (LMX4) cream Topical Q1H PRN Eileen Earl MD lidocaine 1 % 0.1-1 mL 0.1-1 mL Other Q1H PRN Eileen Earl MD naloxone (NARCAN) injection 0.2 mg 0.2 mg Intravenous Q2 Min PRN Eileen Earl MD Or naloxone (NARCAN) injection 0.4 mg 0.4 mg Intravenous Q2 Min PRN Eileen Earl MD Or naloxone (NARCAN) injection 0.2 mg 0.2 mg Intramuscular Q2 Min PRN Eileen Earl MD Or naloxone (NARCAN) injection 0.4 mg 0.4 mg Intramuscular Q2 Min PRN Eileen Earl MD ondansetron (ZOFRAN ODT) ODT tab 4 mg 4 mg Oral Q6H PRN Eileen Earl MD Or ondansetron (ZOFRAN) injection 4 mg 4 mg Intravenous Q6H PRN Eileen Earl MD senna-docusate (SENOKOT-S/PERICOLACE) 8.6-50 MG per tablet 1 tablet 1 tablet Oral BID PRN Eileen Earl MD Or senna-docusate (SENOKOT-S/PERICOLACE) 8.6-50 MG per tablet 2 tablet 2 tablet Oral BID PRN Eileen Earl MD sodium chloride (PF) 0.9% PF flush 10-20 mL 10-20 mL Intracatheter q1 min prn Antonino Cheek MD sodium chloride (PF) 0.9% PF flush 3 mL 3 mL Intracatheter q1 min prn Eileen Earl MD sodium chloride (PF) 0.9% PF flush 3 mL 3 mL Intracatheter q1 min prn Eileen Earl MD sodium chloride (PF) 0.9% PF flush 3 mL 3 mL Intracatheter q1 min prn Eileen Earl MD 3 mL at 03/04/24 0901 sodium chloride 0.9% BOLUS 100-150 mL 100-150 mL Intravenous Q15 Min PRN Jose Enrique Naylor MD PHYSICAL EXAM: BP 133/65 Pulse 71 Temp 97.7 ??F (36.5 ??C) (Oral) Resp (!) 5 Wt 84.3 kg (185 lb 13.6 oz) SpO2 (!) 14% BMI 31.90 kg/m?? Estimated body mass index is 31.9 kg/m?? as calculated from the following: Height as of 02/24/24: 1.626 m (5' 4). Weight as of this encounter: 84.3 kg (185 lb 13.6 oz). RESP: lungs clear to auscultation - no rales, rhonchi or wheezes CV: systolic murmur IMPRESSION ASA Class 3 - Severe systemic disease, but not incapacitating Signed Electronically by: Eileen Earl MD March 08, 2024 . * Plan of Care - Cynthia Zazueta RN - 03/08/2024 6:26 AM CDT Pertinent assessments: Alert, disoriented to time. Up Ax1 w/ walker. VSS. 2LNC. Denies pain. Incontinent of stool. Completed bowel prep. Midline SL. Major Shift Events: RUE US completed. Bowel prep completed. Treatment Plan: Plans for colonoscopy tomorrow. Q6H Hgb checks. Bedside Nurse: Cynthia Zazueta RN Problem: Adult Inpatient Plan of Care Goal: Plan of Care Review Description: The Plan of Care Review/Shift note should be completed every shift. The Outcome Evaluation is a brief statement about your assessment that the patient is improving, declining, or no change. This information will be displayed automatically on your shift note. Outcome: Progressing Flowsheets (Taken 03/08/2024 0626) Outcome Evaluation: US completed, multiple loose stools. Plan of Care Reviewed With: patient Goal: Patient-Specific Goal (Individualized) Description: You can [...] Manage Fall Risk Recent Flowsheet Documentation Taken 03/07/20242120 by Cynthia Zazueta RN Safety Promotion/Fall Prevention: activity supervised Taken 03/07/20242029 by Cynthia Zazueta RN Safety Promotion/Fall Prevention: activity supervised Intervention: Prevent Skin Injury Recent Flowsheet Documentation Taken 03/07/20242029 by Cynthia Zazueta RN Body Position: position changed independently Goal: Optimal Comfort and Wellbeing Outcome: Progressing Goal: Readiness for Transition of Care Outcome: Progressing Goal Outcome Evaluation: Plan of Care Reviewed With: patient Outcome Evaluation: US completed, multiple loose stools. * Plan of Care - Anusha Lindsey RN - 03/07/2024 6:24 PM CDT Goal Outcome Evaluation: End of Shift Summary For vital signs and complete assessments, please see documentation flowsheets. Pertinent assessments: Alert, disoriented x time. VSS, afebrile & sats maintained on 2LPM. Denies pain. Significant swelling to SRIDHAR Mohamud MD notified, SRIDHAR US ordered, yet to be completed. BG this shift 77/130/79. No BM this shift, no UOP. Tolerating diet without n/v. Major Shift Events: Dialysis completed. Bowel prep started. RUE US pending. Treatment Plan: Plans for colonoscopy tomorrow. Q6H Hgb checks. Bedside Nurse: Anusha Lindsey RN Plan of Care Reviewed With: patient Overall Patient Progress: improvingOverall Patient Progress: improving Outcome Evaluation: No BM this shift. VSS, denies pain. Colonscopy prep started. Problem: Adult Inpatient Plan of Care Goal: Plan of Care Review Description: The Plan of Care Review/Shift note should be completed every shift. The Outcome Evaluation is a brief statement about your assessment that the patient is improving, declining, or no change. This information will be displayed automatically on your shift note. Outcome: Progressing Flowsheets (Taken 03/07/2024 1823) Outcome Evaluation: No BM this shift. VSS, denies pain. Colonscopy prep started. Plan of Care Reviewed With: patient Overall [...] Manage Fall Risk Recent Flowsheet Documentation Taken 03/07/2024929 by Anusha Lindsey RN Safety Promotion/Fall Prevention: activity supervised assistive device/personal items within reach clutter free environment maintained increase visualization of patient lighting adjusted nonskid shoes/slippers when out of bed safety round/check completed supervised activity treat reversible contributory factors treat underlying cause Intervention: Prevent Skin Injury Recent Flowsheet Documentation Taken 03/07/2024929 by Anusha Lindsey RN Body Position: position changed independently Intervention: Prevent and Manage VTE (Venous Thromboembolism) Risk Recent Flowsheet Documentation Taken 03/07/2024929 by Anusha Lindsey RN VTE Prevention/Management: SCDs (sequential compression devices) off Goal: Optimal Comfort and Wellbeing Outcome: Progressing Goal: Readiness for Transition of Care Outcome: Progressing * Plan of Care - Byron Camarillo RN - 03/07/2024 7:51 AM CDT For vital signs and complete assessments, please see documentation flowsheets. [id number] Pertinent assessments:Pt disoriented to time & situation .CPAP in place overnight. Ax1 with walker & gait belt. Afebrile. Elevated BP's, other VSS. Denies pain, nausea & SOB.No BM during shift. B,78,98. Major Shift Events: Due to Pt turning in bed two IV's on right arm were dislodged. The remaining Christiana right arm was left infusing D10%. Right forearm swelling was noted. Provider notified & IVF stopped. -Flyer RN attempted to start a new IV in other arm & was unsuccessful Treatment Plan:Symptom management. IVF. Monitor Hgb & BG.Dialysis. IV placement. Bedside Nurse: Byron Camarillo RN Goal Outcome Evaluation: Problem: Adult Inpatient Plan of Care Goal: Plan of Care Review Description: The Plan of Care Review/Shift note should be completed every shift. The Outcome Evaluation is a brief statement about your assessment that the patient is improving, declining, or no change. This information will be displayed automatically on your shift note. Outcome: Progressing Flowsheets (Taken 03/07/2024 0750) Outcome Evaluation: Denies pain, & SOB. CPAP in place overnight. Plan of Care Reviewed With: patient Overall [...] Manage Fall Risk Recent Flowsheet Documentation Taken 03/07/2024 0125 by Byron Camarillo, RN Safety Promotion/Fall Prevention: activity supervised assistive device/personal items within reach clutter free environment maintained increased rounding and observation nonskid shoes/slippers when out of bed patient and family education room near nurse's station room organization consistent safety round/check completed treat reversible contributory factors Intervention: Prevent Skin Injury Recent Flowsheet Documentation Taken 03/07/2024 012 by Byron Camarillo RN Body Position: position changed independently Intervention: Prevent Infection Recent Flowsheet Documentation Taken 03/07/2024 012 by Byron Camarillo RN Infection Prevention: single patient room provided rest/sleep promoted environmental surveillance performed Goal: Optimal Comfort and Wellbeing Outcome: Progressing Goal: Readiness for Transition of Care Outcome: Progressing Problem: Gastrointestinal Bleeding Goal: Optimal Coping with Acute Illness Outcome: Progressing Goal: Hemostasis Outcome: Progressing Problem: Glycemic Control Impaired Goal: Blood Glucose Level Within Targeted Range Outcome: Progressing Goal: Minimize Risk of Hypoglycemia Outcome: Progressing Problem: Oral Intake Inadequate Goal: Improved Oral Intake Outcome: Progressing Plan of Care Reviewed With: patient Overall Patient Progress: improvingOverall Patient Progress: improving Outcome Evaluation: Denies pain, & SOB. CPAP in place overnight. * Plan of Care - Mann Clark RN - 03/06/2024 11:53 PM CDT Assessments: A/Ox3. VSS. On capno 3L O2/nc. Assist x1 with walker & gait belt, not OOB during shift. Incontinent of BM x1. Dextrose infusing at 40mls. Tolerated diet, no n/v. Denies pain. Major Shift Events: BG of 36 at upon arrival from PACU, BOARDING MOTHER called. PRN D50% 50ml given via IV. Asymptomatic and alert.BG 112 and 112. Treatment Plan:Symptom management. IVF. Monitor labs & BG, Monitor stools, Dialysis M-W-F, GI, Nephrology following Bedside Nurse: Mann Clark RN Problem: Adult Inpatient Plan of Care Goal: Plan of Care Review Description: The Plan of Care Review/Shift note should be completed every shift. The Outcome Evaluation is a brief statement about your assessment that the patient is improving, declining, or no change. This information will be displayed automatically on your shift note. Outcome: Progressing Flowsheets (Taken 03/06/2024 2352) Outcome Evaluation: BG stable at 112, denies pain, no respiratory distress Overall Patient Progress: improving Goal: Patient-Specific Goal [...] Manage Fall Risk Recent Flowsheet Documentation Taken 03/06/2024 1700 by Mann Clark RN Safety Promotion/Fall Prevention: activity supervised increased rounding and observation safety round/check completed increase visualization of patient assistive device/personal items within reach room door open treat reversible contributory factors Intervention: Prevent Skin Injury Recent Flowsheet Documentation Taken 03/06/2024 1606 by Mann Clark RN Body Position: supine, head elevated Intervention: Prevent and Manage VTE (Venous Thromboembolism) Risk Recent Flowsheet Documentation Taken 03/06/2024 1700 by Mann Clark RN VTE Prevention/Management: SCDs (sequential compression devices) off Intervention: Prevent Infection Recent Flowsheet Documentation Taken 03/06/2024 1700 by Mann Clark RN Infection Prevention: environmental surveillance performed Goal: Optimal Comfort and Wellbeing Outcome: Progressing Goal: Readiness for Transition of Care Outcome: Progressing Problem: Gastrointestinal Bleeding Goal: Optimal Coping with Acute Illness Outcome: Progressing Goal: Hemostasis Outcome: Progressing Problem: Glycemic Control Impaired Goal: Blood Glucose Level Within Targeted Range Outcome: Progressing Goal: Minimize Risk of Hypoglycemia Outcome: Progressing Problem: Oral Intake Inadequate Goal: Improved Oral Intake Outcome: Progressing Goal Outcome Evaluation: Overall Patient Progress: improving Outcome Evaluation: BG stable at 112, denies pain, no respiratory distress * Plan of Care - Edie Pack RN - 03/06/2024 1:30 PM CDT Goal Outcome Evaluation: Pertinent assessments: A&Ox3. Disoriented to situation. VSS. On RA. Denied pain or SOB. Assist x1 with walker & gait belt. NPO for EGD & Colonoscopy. Multiple clear/watery stools. PIV in place. Dextrose infusing at 40mls. BG were 87 & 81. Off the unit for colonoscopy & EGD. Major Shift Events: hgb 7.0 this morning. I unit of PRBC given. Recheck hgb. 7.6. Off the unit for EGD & colonoscopy. Treatment Plan:Symptom management. IVF. Monitor labs & BG, Monitor stools, Dialysis M-W-, GI, Nephrology following Plan of Care Reviewed With: patient Outcome Evaluation: I unit of PRBC given for hgb of 7.0. Recheck is 7.6. Off the unit for EGD &Colonoscopy Problem: Adult Inpatient Plan of Care Goal: Plan of Care Review Description: The Plan of Care Review/Shift note should be completed every shift. The Outcome Evaluation is a brief statement about your assessment that the patient is improving, declining, or no change. This information will be displayed automatically on your shift note. Outcome: Progressing Flowsheets (Taken 03/06/2024 1422) Outcome Evaluation: I unit of PRBC given for hgb of 7.0. Recheck is 7.6. Off the unit for EGD &Colonoscopy Plan of Care Reviewed With: patient Goal: Patient-Specific Goal (Individualized) Description: You can [...] Manage Fall Risk Recent Flowsheet Documentation Taken 03/06/2024 1005 by Edie Pack RN Safety Promotion/Fall Prevention: activity supervised increased rounding and observation Intervention: Prevent Skin Injury Recent Flowsheet Documentation Taken 03/06/2024 1005 by Edie Pack RN Body Position: position changed independently Intervention: Prevent Infection Recent Flowsheet Documentation Taken 03/06/2024 1005 by Edie Pack RN Infection Prevention: environmental surveillance performed Goal: Optimal Comfort and Wellbeing Outcome: Progressing Goal: Readiness for Transition of Care Outcome: Progressing Problem: Gastrointestinal Bleeding Goal: Optimal Coping with Acute Illness Outcome: Progressing Intervention: Optimize Psychosocial Response Recent Flowsheet Documentation Taken 03/06/2024 1005 by Edie Pack RN Supportive Measures: active listening utilized Goal: Hemostasis Outcome: Progressing Intervention: Manage Gastrointestinal Bleeding Recent Flowsheet Documentation Taken 03/06/2024 1005 by Edie Pack RN Environmental Support: calm environment promoted Problem: Glycemic Control Impaired Goal: Blood Glucose Level Within Targeted Range Outcome: Progressing Intervention: Optimize Glycemic Control Recent Flowsheet Documentation Taken 03/06/2024 1005 by Edie Pack RN Hyperglycemia Management: blood glucose monitored Goal: Minimize Risk of Hypoglycemia Outcome: Progressing Intervention: Management and Risk Reduction of Hypoglycemia Recent Flowsheet Documentation Taken 03/06/2024 1005 by Edie Pack RN Hypoglycemia Management: blood glucose monitored Problem: Oral Intake Inadequate Goal: Improved Oral Intake Outcome: Progressing * Provider Notification - Heidy Cormier RN - 03/06/2024 1:10 PM CDT QUINTON Skinner notified of pre-op hemoglobin 7.0, pt received 1 Unit RBCs and hemoglobin redraw will occur prior to procedure. QUINTON Skinner also notified pt blood glucose 74 in pre-op. No furtherorders. QUINTON Skinner okay with continuing to monitor patient. Heidy Cormier RN on 03/06/2024 at 1:12 PM * Plan of Care - Byron Camarillo RN - 03/06/2024 6:16 AM CDT Goal Outcome Evaluation: For vital signs and complete assessments, please see documentation flowsheets. [id number] Pertinent assessments:Pt disoriented to time. CPAP in place overnight. Ax1 with walker & gait belt. Afebrile. Elevated BP, other VSS. Denies pain, nausea & SOB. PIV infusing D10 at 40mls/hr. Had multiple loose tarry BM's during shift. B,90 Major Shift Events: NPO at midnight Treatment Plan:Symptom management. IVF. Monitor labs & BG. Dialysis.Colonoscopy/EGD Bedside Nurse: Byron Camarillo RN Problem: Adult Inpatient Plan of Care Goal: Plan of Care Review Description: The Plan of Care Review/Shift note should be completed every shift. The Outcome Evaluation is a brief statement about your assessment that the patient is improving, declining, or no change. This information will be displayed automatically on your shift note. 03/06/2024616 by Byron Camarillo RN Outcome: Progressing Flowsheets (Taken 03/06/2024616) Outcome Evaluation: Pt had multiple tarry loose BM's overnight. BG stable D10 infusing at 40mls/hr Plan of Care Reviewed With: patient 03/06/2024612 by Byron Camarillo RN Outcome: Progressing Flowsheets (Taken 03/06/2024612) Outcome Evaluation: Pt had mulltiple tarry loose BM's overnight BG stable D10 infusing at 40 mls/hr Plan of Care Reviewed With: patient Overall [...] wake me up as it startles me. 03/06/2024616 by Byron Camarillo RN Outcome: Progressing 03/06/2024612 by Byron Camarillo RN Outcome: Progressing Goal: Absence of Hospital-Acquired Illness or Injury 03/06/2024616 by Byron Camarillo RN Outcome: Progressing 03/06/2024612 by Byron Camarillo RN Outcome: Progressing Intervention: Identify and Manage Fall Risk Recent Flowsheet Documentation Taken 03/06/202414 by Byron Camarillo RN Safety Promotion/Fall Prevention: activity supervised room door open room near nurse's station safety round/check completed clutter free environment maintained assistive device/personal items within reach nonskid shoes/slippers when out of bed treat reversible contributory factors Intervention: Prevent Skin Injury Recent Flowsheet Documentation Taken 03/06/202414 by Byron Camarillo RN Body Position: position changed independently Intervention: Prevent and Manage VTE (Venous Thromboembolism) Risk Recent Flowsheet Documentation Taken 03/06/202414 by Byron Camarillo RN VTE Prevention/Management: SCDs (sequential compression devices) off Intervention: Prevent Infection Recent Flowsheet Documentation Taken 03/06/202414 by Byron Camarillo RN Infection Prevention: environmental surveillance performed equipment surfaces disinfected hand hygiene promoted single patient room provided rest/sleep promoted Goal: Optimal Comfort and Wellbeing 03/06/2024616 by Byron Camarillo RN Outcome: Progressing 03/06/2024612 by Byron Camarillo RN Outcome: Progressing Goal: Readiness for Transition of Care 03/06/2024616 by Byron Camarillo RN Outcome: Progressing 03/06/2024612 by Byron Camarillo RN Outcome: Progressing Problem: Gastrointestinal Bleeding Goal: Optimal Coping with Acute Illness 03/06/2024616 by Byron Camarillo RN Outcome: Progressing 03/06/2024612 by Byron Camarillo RN Outcome: Progressing Goal: Hemostasis 03/06/2024616 by Byron Camarillo RN Outcome: Progressing 03/06/2024612 by Byron Camarillo RN Outcome: Progressing Problem: Glycemic Control Impaired Goal: Blood Glucose Level Within Targeted Range 03/06/2024616 by Byron Camarillo RN Outcome: Progressing 03/06/2024612 by Byron Camarillo RN Outcome: Progressing Goal: Minimize Risk of Hypoglycemia 03/06/2024616 by Byron Camarillo RN Outcome: Progressing 03/06/2024612 by Byron Camarillo RN Outcome: Progressing Problem: Oral Intake Inadequate Goal: Improved Oral Intake 03/06/2024616 by Byron Camarillo RN Outcome: Progressing 03/06/2024612 by Byron Camarillo RN Outcome: Progressing * Plan of Care - Capo Rowe RN - 03/05/2024 11:06 PM CDT Goal Outcome Evaluation: Plan of Care Reviewed With: patient Overall Patient Progress: no changeOverall Patient Progress: no change Outcome Evaluation: Pt is A & O, UP a X 1 walker/ gb, DV10 @ 40 ml/hr, novolog on hold, hgb 8.4, Pt on bowel prep for colonoscopy & EGD scheduled for tomorrow, CLD, NPO @ midnight, Pt had 1 episode black tarry loose stools and 1 emesis. Problem: Adult Inpatient Plan of Care Goal: Plan of Care Review Description: The Plan of Care Review/Shift note should be completed every shift. The Outcome Evaluation is a brief statement about your assessment that the patient is improving, declining, or no change. This information will be displayed automatically on your shift note. Outcome: Progressing Flowsheets (Taken 03/05/20242222) Outcome Evaluation: Pt is A & O, UP a X 1 walker/ gb, DV10 @ 40 ml/hr, novolog on hold, hgb 8.4, Pt on bowel prep for colonoscopy & EGD scheduled for tomorrow, CLD, NPO @ midnight, Pt had 1 episode black tarry loose stools and 1 emesis. Plan of Care Reviewed With: patient Overall [...] of Hospital-Acquired Illness or Injury Outcome: Progressing Goal: Optimal Comfort and Wellbeing Outcome: Progressing Goal: Readiness for Transition of Care Outcome: Progressing Problem: Gastrointestinal Bleeding Goal: Optimal Coping with Acute Illness Outcome: Progressing Goal: Hemostasis Outcome: Progressing Problem: Glycemic Control Impaired Goal: Blood Glucose Level Within Targeted Range Outcome: Progressing Goal: Minimize Risk of Hypoglycemia Outcome: Progressing Problem: Oral Intake Inadequate Goal: Improved Oral Intake Outcome: Progressing * Plan of Care - Nichelle Wheatley RN - 03/05/2024 6:32 PM CDT End of Shift Summary For vital signs and complete assessments, please see documentation flowsheets. Pertinent assessments: Patient returned to unit after dialysis treatment. Pt A&O. Patient denied any pain during shift. Ambulation and Voiding: SBA. Tolerates clear liquid diet. Major Shift Events: None Treatment Plan: monitor labs, continue with POC Problem: Adult Inpatient Plan of Care Goal: Plan of Care Review Description: The Plan of Care Review/Shift note should be completed every shift. The Outcome Evaluation is a brief statement about your assessment that the patient is improving, declining, or no change. This information will be displayed automatically on your shift note. Outcome: Progressing Flowsheets (Taken 03/05/2024 1831) Outcome Evaluation: Patient received dialysis today. BG has been stable. Plan of Care Reviewed With: patient Overall [...] Manage Fall Risk Recent Flowsheet Documentation Taken 03/05/2024 1720 by Nichelle Wheatley RN Safety Promotion/Fall Prevention: activity supervised room door open room near nurse's station safety round/check completed Intervention: Prevent Skin Injury Recent Flowsheet Documentation Taken 03/05/2024 1720 by Nichelle Wheatley RN Body Position: supine, head elevated Intervention: Prevent and Manage VTE (Venous Thromboembolism) Risk Recent Flowsheet Documentation Taken 03/05/2024 1720 by Nichelle Wheatley RN VTE Prevention/Management: SCDs (sequential compression devices) off Goal: Optimal Comfort and Wellbeing Outcome: Progressing Goal: Readiness for Transition of Care Outcome: Progressing Problem: Gastrointestinal Bleeding Goal: Optimal Coping with Acute Illness Outcome: Progressing Goal: Hemostasis Outcome: Progressing Problem: Glycemic Control Impaired Goal: Blood Glucose Level Within Targeted Range Outcome: Progressing Goal: Minimize Risk of Hypoglycemia Outcome: Progressing Problem: Oral Intake Inadequate Goal: Improved Oral Intake Outcome: Progressing Goal Outcome Evaluation: Plan of Care Reviewed With: patient Overall Patient Progress: improvingOverall Patient Progress: improving Outcome Evaluation: Patient received dialysis today. BG has been stable. * Plan of Care - Bárbara Arana RN - 03/05/2024 2:41 PM CDT End of Shift Summary For vital signs and complete assessments, please see documentation flowsheets. Pertinent assessments: Pt A&Ox3, disoriented to time, slow to respond. No c/o pain or nausea. Incontinent of stool at times. Tolerating clears, plan for bowel prep this afternoon and NPO after midnight for EGD/colonoscopy. GI paged for bowel prep orders, awaiting response. Dialysis run this afternoon. D10 infusing via PIV. Blood transfusing in dialysis. Resting comfortably in bed. BG stable. Major Shift Events: dialysis, blood transfusion Treatment Plan: Plan for EGD/colonoscopy in am, advance diet, continue dialysis, monitor sodium andHGB Problem: Adult Inpatient Plan of Care Goal: Plan of Care Review Description: The Plan of Care Review/Shift note should be completed every shift. The Outcome Evaluation is a brief statement about your assessment that the patient is improving, declining, or no change. This information will be displayed automatically on your shift note. Outcome: Progressing Flowsheets (Taken 03/05/2024 1441) Outcome Evaluation: BG stable. Recieving hemodialysis Plan of Care Reviewed With: patient Overall [...] Manage Fall Risk Recent Flowsheet Documentation Taken 03/05/2024 08 by Bárbara Arana RN Safety Promotion/Fall Prevention: activity supervised clutter free environment maintained nonskid shoes/slippers when out of bed room door open room near nurse's station room organization consistent safety round/check completed supervised activity Intervention: Prevent and Manage VTE (Venous Thromboembolism) Risk Recent Flowsheet Documentation Taken 03/05/2024 0820 by Bárbara Arana RN VTE Prevention/Management: SCDs (sequential compression devices) off Intervention: Prevent Infection Recent Flowsheet Documentation Taken 03/05/2024 0820 by Bárbara Arana RN Infection Prevention: environmental surveillance performed equipment surfaces disinfected hand hygiene promoted single patient room provided rest/sleep promoted Goal: Optimal Comfort and Wellbeing Outcome: Progressing Goal: Readiness for Transition of Care Outcome: Progressing Problem: Gastrointestinal Bleeding Goal: Optimal Coping with Acute Illness Outcome: Progressing Goal: Hemostasis Outcome: Progressing Problem: Glycemic Control Impaired Goal: Blood Glucose Level Within Targeted Range Outcome: Progressing Goal: Minimize Risk of Hypoglycemia Outcome: Progressing Problem: Oral Intake Inadequate Goal: Improved Oral Intake Outcome: Progressing Goal Outcome Evaluation: Plan of Care Reviewed With: patient Overall Patient Progress: improvingOverall Patient Progress: improving Outcome Evaluation: BG stable. Recieving hemodialysis * Plan of Care - Byron Camarillo RN - 03/05/2024 5:43 AM CDT For vital signs and complete assessments, please see documentation flowsheets. [id number] Pertinent assessments: Pt disoriented to time. CPAP in place overnight. Ax1 with walker & gait belt. Afebrile. Elevated BP, other VSS. Denies pain, nausea & SOB. PIV infusing at 40mls/hr. B,115 Major Shift Events:none Treatment Plan: Symptom management. IVF. Monitor Hgb & BG. Dialysis. Bowel prep for colonoscopy. NPO at midnight. Bedside Nurse: Byron Camarillo RN Goal Outcome Evaluation: Problem: Adult Inpatient Plan of Care Goal: Plan of Care Review Description: The Plan of Care Review/Shift note should be completed every shift. The Outcome Evaluation is a brief statement about your assessment that the patient is improving, declining, or no change. This information will be displayed automatically on your shift note. Outcome: Progressing Flowsheets (Taken 03/05/2024 0542) Outcome Evaluation: Denies pain, Cpap in place overnight BG stable. IVF infusing Plan of Care Reviewed With: patient Goal: Patient-Specific Goal (Individualized) Description: You can [...] Manage Fall Risk Recent Flowsheet Documentation Taken 03/05/2024113 by Byron Camarillo RN Safety Promotion/Fall Prevention: supervised activity safety round/check completed room organization consistent room near nurse's station patient and family education nonskid shoes/slippers when out of bed mobility aid in reach clutter free environment maintained assistive device/personal items within reach treat reversible contributory factors Intervention: Prevent Skin Injury Recent Flowsheet Documentation Taken 03/05/2024113 by Byron Camarillo RN Body Position: position changed independently Intervention: Prevent and Manage VTE (Venous Thromboembolism) Risk Recent Flowsheet Documentation Taken 03/05/2024113 by Byron Camarillo RN VTE Prevention/Management: SCDs (sequential compression devices) off Intervention: Prevent Infection Recent Flowsheet Documentation Taken 03/05/2024113 by Byron Camarillo RN Infection Prevention: single patient room provided rest/sleep promoted personal protective equipment utilized hand hygiene promoted Goal: Optimal Comfort and Wellbeing Outcome: Progressing Goal: Readiness for Transition of Care Outcome: Progressing Problem: Gastrointestinal Bleeding Goal: Optimal Coping with Acute Illness Outcome: Progressing Goal: Hemostasis Outcome: Progressing Problem: Glycemic Control Impaired Goal: Blood Glucose Level Within Targeted Range Outcome: Progressing Goal: Minimize Risk of Hypoglycemia Outcome: Progressing Problem: Oral Intake Inadequate Goal: Improved Oral Intake Outcome: Progressing Plan of Care Reviewed With: patient Outcome Evaluation: Denies pain, Cpap in place overnight BG stable. IVF infusing * Plan of Care - Albina Sneed RN - 03/04/2024 10:58 PM CDT End of Shift Summary For vital signs and complete assessments, please see documentation flowsheets. Pertinent assessments: Pt A&O, Disoriented to time. On RA. Denies pain. PIV infusing D10@40ml/hr. Assist of 1 with walker. BG 122, 132. Major Shift Events: None Treatment Plan: GI consult, Monitor Hgb, Nephrology following. Dialysis AM. Bowel prep tomorrow, colonoscopy 03/06. Bedside Nurse: Albina Sneed RN Problem: Adult Inpatient Plan of Care Goal: Plan of Care Review Description: The Plan of Care Review/Shift note should be completed every shift. The Outcome Evaluation is a brief statement about your assessment that the patient is improving, declining, or no change. This information will be displayed automatically on your shift note. Outcome: Progressing Flowsheets (Taken 03/04/2024 8166) Outcome Evaluation: BG stable Plan of Care Reviewed With: patient Overall [...] Manage Fall Risk Recent Flowsheet Documentation Taken 03/04/20242018 by Albina Sneed RN Safety Promotion/Fall Prevention: supervised activity safety round/check completed room organization consistent room near nurse's station patient and family education nonskid shoes/slippers when out of bed mobility aid in reach lighting adjusted increase visualization of patient increased rounding and observation clutter free environment maintained Intervention: Prevent Skin Injury Recent Flowsheet Documentation Taken 03/04/20242018 by Albina Sneed RN Body Position: position changed independently Intervention: Prevent and Manage VTE (Venous Thromboembolism) Risk Recent Flowsheet Documentation Taken 03/04/20242018 by Albina Sneed RN VTE Prevention/Management: SCDs (sequential compression devices) off Intervention: Prevent Infection Recent Flowsheet Documentation Taken 03/04/20242018 by Albina Sneed RN Infection Prevention: rest/sleep promoted Goal: Optimal Comfort and Wellbeing Outcome: Progressing Goal: Readiness for Transition of Care Outcome: Progressing Problem: Gastrointestinal Bleeding Goal: Optimal Coping with Acute Illness Outcome: Progressing Goal: Hemostasis Outcome: Progressing Problem: Glycemic Control Impaired Goal: Blood Glucose Level Within Targeted Range Outcome: Progressing Goal: Minimize Risk of Hypoglycemia Outcome: Progressing Problem: Oral Intake Inadequate Goal: Improved Oral Intake Outcome: Progressing Goal Outcome Evaluation: Plan of Care Reviewed With: patient Overall Patient Progress: improvingOverall Patient Progress: improving Outcome Evaluation: BG stable * Plan of Care - Bárbara Arana RN - 03/04/2024 7:09 PM CDT End of Shift Summary For vital signs and complete assessments, please see documentation flowsheets. Pertinent assessments: Pt A&Ox3, disoriented to time, slow to respond. Legally blind. Up with Ax1 walker and GB. Had 1 BM this shift, dark brown. BG stable, 96 and 93. Tolerating mod carb diet. Kand HGB recheck pending. PIV infusing D10 @ 40 ml/hr. L thigh fistula present. Plans for dialysis in am. Major Shift Events: advanced to mod carb diet Treatment Plan: clears tomorrow and [employer] at midnight for colonoscopy and EGD, monitor BG, encourage mobility Problem: Adult Inpatient Plan of Care Goal: Plan of Care Review Description: The Plan of Care Review/Shift note should be completed every shift. The Outcome Evaluation is a brief statement about your assessment that the patient is improving, declining, or no change. This information will be displayed automatically on your shift note. Outcome: Progressing Flowsheets (Taken 03/04/2024 190) Outcome Evaluation: BG stable, tolerating diet Plan of Care Reviewed With: patient Overall [...] Manage Fall Risk Recent Flowsheet Documentation Taken 03/04/2024 1700 by Bárbara Arana RN Safety Promotion/Fall Prevention: activity supervised clutter free environment maintained nonskid shoes/slippers when out of bed room door open room near nurse's station room organization consistent safety round/check completed supervised activity Intervention: Prevent and Manage VTE (Venous Thromboembolism) Risk Recent Flowsheet Documentation Taken 03/04/2024 1700 by Bárbara Arana RN VTE Prevention/Management: SCDs (sequential compression devices) off Intervention: Prevent Infection Recent Flowsheet Documentation Taken 03/04/2024 1700 by Bárbara Arana RN Infection Prevention: environmental surveillance performed equipment surfaces disinfected hand hygiene promoted single patient room provided rest/sleep promoted Goal: Optimal Comfort and Wellbeing Outcome: Progressing Goal: Readiness for Transition of Care Outcome: Progressing Problem: Gastrointestinal Bleeding Goal: Optimal Coping with Acute Illness Outcome: Progressing Goal: Hemostasis Outcome: Progressing Problem: Glycemic Control Impaired Goal: Blood Glucose Level Within Targeted Range Outcome: Progressing Goal: Minimize Risk of Hypoglycemia Outcome: Progressing Problem: Oral Intake Inadequate Goal: Improved Oral Intake Outcome: Progressing Goal Outcome Evaluation: Plan of Care Reviewed With: patient Overall Patient Progress: improvingOverall Patient Progress: improving Outcome Evaluation: BG stable, tolerating diet * Plan of Care - Paulina Kang RN - 03/04/2024 2:47 PM CDT Pt alert, D10 IVF maintained at 40ml, had episode of hypoglycemia, 45 grams of carbs given, BG 86. Hemo 7.1, q12 checks in place, K 5.7 one time lokelma given. New PIV placed, diet advanced to full liquid. Plan for possible colonoscopy tomorrow. Problem: Adult Inpatient Plan of Care Goal: Plan of Care Review Description: The Plan of Care Review/Shift note should be completed every shift. The Outcome Evaluation is a brief statement about your assessment that the patient is improving, declining, or no change. This information will be displayed automatically on your shift note. Outcome: Progressing Flowsheets (Taken 03/04/2024 1446) Plan of Care Reviewed With: patient Overall [...] Manage Fall Risk Recent Flowsheet Documentation Taken 03/04/2024 0855 by Paulina Kang RN Safety Promotion/Fall Prevention: activity supervised clutter free environment maintained nonskid shoes/slippers when out of bed room door open room near nurse's station room organization consistent safety round/check completed supervised activity Intervention: Prevent Skin Injury Recent Flowsheet Documentation Taken 03/04/2024 1436 by Paulina Kang RN Body Position: position changed independently Taken 03/04/2024 1147 by Paulina Kang RN Body Position: position changed independently Taken 03/04/2024 0855 by Paulina Kang RN Body Position: position changed independently Skin Protection: incontinence pads utilized adhesive use limited Device Skin Pressure Protection: absorbent pad utilized/changed positioning supports utilized Intervention: Prevent and Manage VTE (Venous Thromboembolism) Risk Recent Flowsheet Documentation Taken 03/04/2024 0855 by Paulina Kang RN VTE Prevention/Management: SCDs (sequential compression devices) off Intervention: Prevent Infection Recent Flowsheet Documentation Taken 03/04/2024 0855 by Paulina Kang RN Infection Prevention: environmental surveillance performed equipment surfaces disinfected hand hygiene promoted single patient room provided rest/sleep promoted Goal: Optimal Comfort and Wellbeing Outcome: Progressing Goal: Readiness for Transition of Care Outcome: Progressing Goal Outcome Evaluation: Plan of Care Reviewed With: patient Overall Patient Progress: no changeOverall Patient Progress: no change * Plan of Care - Zulema Parr RN - 03/04/2024 7:58 AM CDT Alert, confused, wears CPAP at night, IVF infusing, Blood glucose check Q2, On clear liquids. Problem: Adult Inpatient Plan of Care Goal: Plan of Care Review Description: The Plan of Care Review/Shift note should be completed every shift. The Outcome Evaluation is a brief statement about your assessment that the patient is improving, declining, or no change. This information will be displayed automatically on your shift note. Outcome: Progressing Flowsheets (Taken 03/04/2024 0757) Outcome Evaluation: IV D10 infusion continued, BG recheck Q2, Wears CIPAP at night. Plan of Care Reviewed With: patient Overall [...] Manage Fall Risk Recent Flowsheet Documentation Taken 03/04/2024399 by Zulema Parr, RN Safety Promotion/Fall Prevention: supervised activity safety round/check completed room organization consistent room near nurse's station patient and family education nonskid shoes/slippers when out of bed mobility aid in reach lighting adjusted increased rounding and observation clutter free environment maintained increase visualization of patient Intervention: Prevent Skin Injury Recent Flowsheet Documentation Taken 03/04/2024399 by Zulema Parr, RN Body Position: position changed independently Goal: Optimal Comfort and Wellbeing Outcome: Progressing Goal: Readiness for Transition of Care Outcome: Progressing Problem: Gastrointestinal Bleeding Goal: Optimal Coping with Acute Illness Outcome: Progressing Goal: Hemostasis Outcome: Progressing Problem: Glycemic Control Impaired Goal: Blood Glucose Level Within Targeted Range Outcome: Progressing Goal: Minimize Risk of Hypoglycemia Outcome: Progressing Intervention: Management and Risk Reduction of Hypoglycemia Recent Flowsheet Documentation Taken 03/04/2024399 by Zulema aPrr RN Hypoglycemia Management: (IV dextrose continued) blood glucose monitored other (see comments) Problem: Oral Intake Inadequate Goal: Improved Oral Intake Outcome: Progressing Goal Outcome Evaluation: Plan of Care Reviewed With: patient Overall Patient Progress: no changeOverall Patient Progress: no change Outcome Evaluation: IV D10 infusion continued, BG recheck Q2, Wears CIPAP at night. * Plan of Care - Albina Sneed RN - 03/04/2024 12:01 AM CDT End of Shift Summary For vital signs and complete assessments, please see documentation flowsheets. Pertinent assessments: Pt A&O, with intermittent confusion. On RA. VSS. Denies pain. Clear liquid diet. PIV infusing D10. Assist of 1 to bedside commode. Pt had 1 BM this shift, brown color. Major Shift Events: Pt hypoglycemic BG 50, 60's, Glucose gel, apple juice given. Recheck 110, 144. Treatment Plan: GI consult, hgb check Q8. Bedside Nurse: Albina Sneed RN Problem: Adult Inpatient Plan of Care Goal: Plan of Care Review Description: The Plan of Care Review/Shift note should be completed every shift. The Outcome Evaluation is a brief statement about your assessment that the patient is improving, declining, or no change. This information will be displayed automatically on your shift note. Outcome: Progressing Flowsheets (Taken 03/04/2024 0001) Outcome Evaluation: BG recheck stable Plan of Care Reviewed With: patient Overall [...] Manage Fall Risk Recent Flowsheet Documentation Taken 03/03/20241909 by Albina Sneed RN Safety Promotion/Fall Prevention: supervised activity safety round/check completed room organization consistent room near nurse's station patient and family education nonskid shoes/slippers when out of bed mobility aid in reach lighting adjusted increased rounding and observation clutter free environment maintained increase visualization of patient Intervention: Prevent Skin Injury Recent Flowsheet Documentation Taken 03/03/20241909 by Albina Sneed RN Body Position: position changed independently Intervention: Prevent Infection Recent Flowsheet Documentation Taken 03/03/20241909 by Albina Sneed RN Infection Prevention: hand hygiene promoted Goal: Optimal Comfort and Wellbeing Outcome: Progressing Goal: Readiness for Transition of Care Outcome: Progressing Problem: Gastrointestinal Bleeding Goal: Optimal Coping with Acute Illness Outcome: Progressing Goal: Hemostasis Outcome: Progressing Problem: Glycemic Control Impaired Goal: Blood Glucose Level Within Targeted Range Outcome: Progressing Goal: Minimize Risk of Hypoglycemia Outcome: Progressing Goal Outcome Evaluation: Plan of Care Reviewed With: patient Overall Patient Progress: improvingOverall Patient Progress: improving Outcome Evaluation: BG recheck stable * Plan of Care - Bella Argueta RN - 03/03/2024 3:08 PM CDT Cared for [id number] Pt Alert to self (cognitive delay; visually impaired, but can see shapes) VSS; Pt denies pain, headache, dizziness, N/V & SOB. Pt up Asst: 1 w/gait belt & walker. Lung sounds diminished, now on RA; CPap at night. Blood glucose levels: 56, 79, 39, 80, 152, 65 (see flowsheets and new orders from MD); currently on D10@ 40 mL/hr recheck blood glucose at 1615. Hbg level: 7.1, 7.5. Skin intact; dialysis fistula site on L thigh unchanged. Neph, PT, OT & Social Work following. GI consulted.Plan to discharge 1-2 days. Will continue with plan of care. ++++++++++++++++++++++++++++++++++++++++++++++++++++++++++++ Goal Outcome Evaluation: Plan of Care Reviewed With: patient Overall Patient Progress: no changeOverall Patient Progress: no change Outcome Evaluation: Patient blood glucose levels untable - MD aware, see new orders Problem: Adult Inpatient Plan of Care Goal: Plan of Care Review Description: The Plan of Care Review/Shift note should be completed every shift. The Outcome Evaluation is a brief statement about your assessment that the patient is improving, declining, or no change. This information will be displayed automatically on your shift note. 03/03/2024 1507 by Bella Argueta RN Outcome: Not Progressing Flowsheets (Taken 03/03/2024 1507) Outcome Evaluation: Patient blood glucose levels untable - MD aware, see new orders Plan of Care Reviewed With: patient Overall Patient Progress: no change 03/03/2024 1506 by Bella Argueta RN Outcome: Not Progressing Flowsheets (Taken 03/03/2024 1506) Outcome Evaluation: Patient blood glucose levels unstable - MD aware - see orders Plan of Care Reviewed With: patient Overall [...] wake me up as it startles me. 03/03/2024 1507 by Bella Argueta RN Outcome: Not Progressing 03/03/2024 1506 by Bella Argueta RN Outcome: Not Progressing Goal: Absence of Hospital-Acquired Illness or Injury 03/03/2024 1507 by Bella Argueta RN Outcome: Not Progressing 03/03/2024 1506 by Bella Argueta RN Outcome: Not Progressing Intervention: Identify and Manage Fall Risk Recent Flowsheet Documentation Taken 03/03/2024 0900 by Bella Argueta RN Safety Promotion/Fall Prevention: activity supervised assistive device/personal items within reach clutter free environment maintained nonskid shoes/slippers when out of bed safety round/check completed supervised activity Intervention: Prevent Skin Injury Recent Flowsheet Documentation Taken 03/03/2024 0900 by Bella Argueta RN Body Position: position changed independently Intervention: Prevent and Manage VTE (Venous Thromboembolism) Risk Recent Flowsheet Documentation Taken 03/03/2024 09 by Bella Argueta RN VTE Prevention/Management: patient refused intervention Intervention: Prevent Infection Recent Flowsheet Documentation Taken 03/03/2024 0900 by Bella Argueta RN Infection Prevention: hand hygiene promoted single patient room provided Goal: Optimal Comfort and Wellbeing 03/03/2024 1507 by Bella Argueta RN Outcome: Not Progressing 03/03/2024 1506 by Bella Argueta RN Outcome: Not Progressing Goal: Readiness for Transition of Care 03/03/2024 1507 by Bella Argueta RN Outcome: Not Progressing 03/03/2024 1506 by Bella Argueta RN Outcome: Not Progressing Problem: Gastrointestinal Bleeding Goal: Optimal Coping with Acute Illness 03/03/2024 1507 by Bella Argueta RN Outcome: Not Progressing 03/03/2024 1506 by Bella Argueta RN Outcome: Not Progressing Goal: Hemostasis 03/03/2024 1507 by Bella Argueta RN Outcome: Not Progressing 03/03/2024 1506 by Bella Argueta RN Outcome: Not Progressing Problem: Glycemic Control Impaired Goal: Blood Glucose Level Within Targeted Range 03/03/2024 1507 by Bella Argueta RN Outcome: Not Progressing 03/03/2024 1506 by Bella Argueta RN Outcome: Not Progressing Goal: Minimize Risk of Hypoglycemia 03/03/2024 1507 by Bella Argueta RN Outcome: Not Progressing 03/03/2024 1506 by Bella Argueta RN Outcome: Not Progressing * Plan of Care - Cynthia Zazueta RN - 03/03/2024 6:13 AM CDT Pertinent assessments: Disoriented to situation. Slow to respond. Up with lift. VSS. 4LNC. Denies pain. Left thigh dialysis fistula CDI. Major Shift Events: Hypoglycemic all night. Received D50 & glucose gel. Hgb of 6.7 after first unit PRBCs, 2nd unit transfused. Recheck in the am. Treatment Plan: NPO, GI consult, hgb checks q8. Bedside Nurse: Cynthia Zazueta RN Problem: Adult Inpatient Plan of Care Goal: Plan of Care Review Description: The Plan of Care Review/Shift note should be completed every shift. The Outcome Evaluation is a brief statement about your assessment that the patient is improving, declining, or no change. This information will be displayed automatically on your shift note. Outcome: Not Progressing Flowsheets (Taken 03/03/2024 0613) Outcome Evaluation: 2 units of blood & D50 & glucose gel for hypglycemia. Plan of Care Reviewed With: patient Overall [...] me up as it startles me. Outcome: Not Progressing Goal: Absence of Hospital-Acquired Illness or Injury Outcome: Not Progressing Intervention: Identify and Manage Fall Risk Recent Flowsheet Documentation Taken 03/02/20241999 by Cynthia Zazueta RN Safety Promotion/Fall Prevention: activity supervised clutter free environment maintained increase visualization of patient increased rounding and observation lighting adjusted mobility aid in reach nonskid shoes/slippers when out of bed patient and family education safety round/check completed supervised activity Intervention: Prevent Skin Injury Recent Flowsheet Documentation Taken 03/02/20241999 by Cynthia Zazueta RN Body Position: position changed independently Intervention: Prevent and Manage VTE (Venous Thromboembolism) Risk Recent Flowsheet Documentation Taken 03/02/20241999 by Cynthia Zazueta RN VTE Prevention/Management: SCDs (sequential compression devices) off Goal: Optimal Comfort and Wellbeing Outcome: Not Progressing Goal: Readiness for Transition of Care Outcome: Not Progressing Intervention: Mutually Develop Transition Plan Recent Flowsheet Documentation Taken 03/02/20242328 by Cynthia Zazueta RN Equipment Currently Used at Home: none Goal Outcome Evaluation: Plan of Care Reviewed With: patient Overall Patient Progress: no changeOverall Patient Progress: no change Outcome Evaluation: 2 units of blood & D50 & glucose gel for hypglycemia. * Pharmacy-Admission Medication History - Quang Gee RPH - 03/02/2024 5:32 PM CDT Pharmacist Admission Medication History Admission medication history is complete. The information provided in this note is only as accurateas the sources available at the time of the update. Information Source(s): Patient's Aunt, Thelma, Dottie/[employer] via phone Pertinent Information: None Changes made to [employer] medication list: Added: Senna Deleted: Bisacodyl, Lisinopril (Thelma states she was told to stop giving this last week) Changed: None Allergies reviewed with patient and updates made in EHR: no Medication History Completed By: Quang Gee RPH 03/02/2024 5:32 PM [employer] Med List Medication Sig Last Dose amLODIPine (NORVASC) 5 MG tablet Take 5 mg by mouth daily 03/02/2024 at AM atorvastatin (LIPITOR) 20 MG tablet Take 1 tablet (20 mg) by mouth every evening 03/01/2024 at PM B Vzzzcps-I-Stwlq Acid (WESCAPS PO) Take 1 capsule by mouth every evening 03/01/2024 at PM calcium acetate (PHOSLO) 667 MG CAPS capsule Take 1 capsule (667 mg)by mouth 3 times daily with meals 03/02/2024 at x1 calcium acetate (PHOSLO) 667 MG CAPS capsule Take 1 capsule (667 mg) once daily with a snack Unknown metoprolol tartrate (LOPRESSOR) 100 MG tablet Take 100 mg by mouth every morning 03/02/2024 at AM sennosides (SENOKOT) 8.6 MG tablet Take 2 tablets by mouth every other day 03/01/2024 warfarin ANTICOAGULANT (COUMADIN) 5 MG tablet Take 1 tablet (5 mg) by mouth Tuesday through Tuesday03/01/2024 at PM documented in this encounter Plan of Treatment Not on file documented as of this encounter Procedures Procedure Name Priority Date/Time Associated Diagnosis Comments GLUCOSE BY METER Routine 03/12/2024 12:0 0 PM CDT GLUCOSE BY METER Routine 03/12/2024 7:51 AM CDT RENAL PANEL Routine 03/12/2024 6:06 AM CDT INR Routine 03/12/2024 6:06 AM CDT HEMOGLOBIN Timed 03/12/2024 6:06 AM CDT GLUCOSE Routine 03/12/2024 6:06 AM CDT GLUCOSE BY METER Routine 03/12/2024 1:55 AM CDT GLUCOSE BY METER Routine 03/11/2024 9:11 PM CDT HEMOGLOBIN Timed 03/11/2024 6:10 PM CDT GLUCOSE BY METER Routine 03/11/2024 5:31 PM CDT GLUCOSE BY METER Routine 03/11/2024 11:4 7 AM CDT GLUCOSE BY METER Routine 03/11/2024 7:36 AM CDT RENAL PANEL Routine 03/11/2024 7:03 AM CDT INR Routine 03/11/2024 7:03 AM CDT CBC WITH PLATELETS Routine 03/11/2024 7: 03 AM CDT XR CHEST PORT 1 VIEW STAT 03/11/2024 3:25 AM CDT GLUCOSE BY METER Routine 03/11/2024 3:03 AM CDT GLUCOSE BY METER Routine 03/11/2024 1:57 AM CDT GLUCOSE BY METER Routine 03/10/2024 9:04 PM CDT CONDITIONAL TRANSFUSE RED BLOOD CELLS (UNIT) Routine 03/10/2024 8:45 PM CDT TYPE AND SCREEN, ADULT STAT 03/10/2024 6:53 PM CDT ABO/RH TYPE AND SCREEN STAT 03/10/2024 6:53 PM CDT CONDITIONAL PREPARE [...] BY METER Routine 03/10/2024 8:32 AM CDT RENAL PANEL Routine 03/10/2024 7:46 AM CDT INR Routine 03/10/2024 7:46 AM CDT HEMOGLOBIN Timed 03/10/2024 7:46 AM CDT GLUCOSE BY METER Routine 03/10/2024 3:38 AM CDT GLUCOSE BY METER Routine 03/10/2024 12:0 5 AM CDT HEMOGLOBIN Timed 03/09/2024 11:50 PM CDT GLUCOSE BY METER Routine 03/09/2024 8:25 PM CDT HEMOGLOBIN Timed 03/09/2024 7:13 PM CDT GLUCOSE BY METER Routine 03/09/2024 4:12 PM CDT HEMOGLOBIN Timed 03/09/2024 2:16 PM CDT GLUCOSE BY METER Routine 03/09/2024 1:35 PM CDT MORPHOLOGY TRACKING STAT 03/09/2024 9 :12 AM CDT BLOOD MORPHOLOGY PATHOLOGIST REVIEW STAT 03/09/2024 9:12 AM CDT CBC WITH PLATELETS AND DIFFERENTIAL STAT 03/09/2024 9:12 AM CDT LACTATE DEHYDROGENASE STAT 03/09/2024 9:12 AM CDT RETICULOCYTE COUNT STAT 03/09/2024 9: 12 AM CDT INR Routine 03/09/2024 9:12 AM CDT HAPTOGLOBIN STAT 03/09/2024 9:12 AM CDT BLOOD MORPHOLOGY PATHOLOGIST REVIEW STAT 03/09/2024 9:12 AM CDT BILIRUBIN DIRECT AND TOTAL STAT 03/09/2024 9:12 AM CDT GLUCOSE BY METER [...] CELLS (UNIT) Routine 03/08/2024 7:50 AM CDT RENAL PANEL Routine 03/08/2024 6:25 AM CDT INR Routine 03/08/2024 6:25 AM CDT HEMOGLOBIN Timed 03/08/2024 6:25 AM CDT GLUCOSE BY METER [...] BY METER Routine 03/07/2024 8:49 AM CDT RENAL PANEL Routine 03/07/2024 6:21 AM CDT INR Routine 03/07/2024 6:21 AM CDT HEMOGLOBIN Timed 03/07/2024 6:21 AM CDT GLUCOSE BY METER [...] 03/06/2024 6:37 PM CDT CBC WITH PLATELETS AND DIFFERENTIAL STAT 03/06/2024 4:28 PM CDT CBC WITH PLATELETS & DIFFERENTIAL STAT 03/06/2024 4:28 PM CDT HEMOGLOBIN Timed 03/06/2024 4:28 PM CDT GLUCOSE STAT 03/06/2024 4:28 PM CDT BASIC METABOLIC PANEL STAT 03/06/2024 4:28 PM CDT GLUCOSE BY METER [...] CELLS (UNIT) Routine 03/06/2024 9:54 AM CDT TYPE AND SCREEN, ADULT STAT 03/06/2024 8:53 AM CDT ABO/RH TYPE AND SCREEN STAT 03/06/2024 8:53 AM CDT GLUCOSE BY METER Routine 03/06/2024 7:57 AM CDT PREPARE RED BLOOD CELLS (UNIT) STAT 03/06/2024 7:50 AM CDT RENAL PANEL Routine 03/06/2024 6:54 AM CDT INR Routine 03/06/2024 6:54 AM CDT HEMOGLOBIN Timed 03/06/2024 6:54 AM CDT GLUCOSE BY METER [...] BY METER Routine 03/05/2024 7:58 AM CDT INR Routine 03/05/2024 7:35 AM CDT HEMOGLOBIN Timed 03/05/2024 7:35 AM CDT COMPREHENSIVE METABOLIC PANEL Routine 03/05/2024 7:35 AM CDT CBC WITH PLATELETS Routine 03/05/2024 7: 35 AM CDT GLUCOSE BY METER Routine 03/05/2024 [...] BY METER Routine 03/04/2024 7:03 AM CDT HEMOGLOBIN Timed 03/04/2024 6:45 AM CDT CORTISOL Routine 03/04/2024 6:45 AM CDT COMPREHENSIVE METABOLIC PANEL Add-On 03/04/2024 6:45 AM CDT CBC WITH PLATELETS Add-On 03/04/2024 6: 45 AM CDT GLUCOSE BY METER Routine 03/04/2024 [...] METER Routine 03/03/2024 10:3 0 AM CDT INR Routine 03/03/2024 6:10 AM CDT HEMOGLOBIN Timed 03/03/2024 6:10 AM CDT BASIC METABOLIC PANEL Routine 03/03/2024 6:10 AM CDT CBC WITH PLATELETS Routine 03/03/2024 6: 10 AM CDT GLUCOSE BY METER Routine 03/03/2024 [...] SARS-COV2 PCR STAT 03/02/2024 1:57 PM CDT EXTRA HEPARINIZED SYRINGE STAT 03/02/2024 1:56 PM CDT EXTRA TUBE STAT 03/02/2024 1:56 PM CDT EXTRA [...] TUBE STAT 03/02/2024 1 :56 PM CDT CBC WITH PLATELETS AND DIFFERENTIAL STAT 03/02/2024 1:56 PM CDT TYPE AND SCREEN, ADULT STAT 03/02/2024 1:56 PM CDT CBC WITH PLATELETS & DIFFERENTIAL STAT 03/02/2024 1:56 PM CDT INR STAT 03/02/2024 1:56 PM CDT HEMOGLOBIN A1C Add-On 03/02/2024 1:56 PM CDT COMPREHENSIVE METABOLIC PANEL STAT 03/02/2024 1:56 PM CDT ABO/RH TYPE AND SCREEN STAT 03/02/2024 1:56 PM CDT documented in this encounter Results * Glucose by meter (03/12/2024 12:00 PM CDT) GLUCOSE BY METER POCT 92 70 - 99 mg/dL 03/12/2024 12:10 PM CDT [facility] POC Blood, Capillary BLOOD SPECIMEN / Unknown 03/12/2024 12:00 PM CDT 03/12/2024 12:10 PM CDT Ron DEAN - [facility] POCT [facility] LABOR[facility] Acute Care Lab [address] Lab (1st floor, no room number) [place] [address], [facility] * Glucose by meter (03/12/2024 7:51 AM CDT) GLUCOSE BY METER POCT 92 70 - 99 mg/dL 03/12/2024 7:58 AM CDT LABORATORY POC Blood, Capillary BLOOD SPECIMEN / Unknown 03/12/2024 7:51 AM CDT 03/12/2024 7:58 AM CDT Ron Tripathi MD LAB - BEAKER POCT LABORATORY POC [facility] Care Lab [address] Lab (1st floor, no room number) [address] * Glucose (03/12/2024 6:06 AM CDT) Glucose 77 70 - 99 mg/dL 03/12/2024 6:35 AM CDT [facility] Blood STRUCTURE OF RIGHT UPPER LIMB / Unknown Venipuncture / Unknown 03/12/2024 6:06 AM CDT 03/12/2024 6:10 AM CDT Ron Tripathi MD LAB - BLOOD ORDERABL ES Performing Organization Address [facility]/ZIP Co de Phone Number [facility] Acute Care Lab [address] Lab (1st floor, no room number) [address] * (ABNORMAL) Hemoglobin (03/12/2024 6:06 AM CDT) Hemoglobin 8.1(L) 13.3 - 17.7 g/dL 03/12/2024 6:14 AM CDT LABORATORY Blood STRUCTURE OF RIGHT UPPER LIMB / Unknown Venipuncture / Unknown 03/12/2024 6:06 AM CDT 03/12/2024 6:10 AM CDT Aashish Romero DO LAB - BLOOD ORDER NADIA [facility] Acute Care Lab [address] Lab (1st floor, no room number) [address] * (ABNORMAL) Renal panel (03/12/2024 6:06 AM CDT) Sodium 123(L) 135 - 145 mmol/L 03/12/2024 [...] >60 mL/min/1. 73m2 03/12/2024 6:35 AM CDT LABORATORY Calcium 8.3(L) 8.8 - 10.2 mg/dL 03/12/2024 6:35 AM CDT LABORATORY Albumin 3.0(L) 3.5 - 5.2 g/dL 03/12/2024 6:35 AM CDT LABORATORY Phosphorus 3.0 2.5 - 4.5 mg/dL 03/12/2024 6:35 AM CDT LABORATORY Blood STRUCTURE OF RIGHT UPPER LIMB / Unknown Venipuncture / Unknown 03/12/2024 6:06 AM CDT 03/12/2024 6:10 AM CDT Eileen Earl MD LAB - BLOOD ORDERA BLES LABORATORY [facility] Acute Care Lab [address] Lab (1st floor, no room number) [place] [address], [facility] * (ABNORMAL) INR (03/12/2024 6:06 AM CDT) INR 1.20(H) 0.85 - 1.15 03/12/2024 6:25 AM CDT [facility] LAB[facility] Blood STRUCTURE OF RIGHT UPPER LIMB / Unknown Venipuncture / Unknown 03/12/2024 6:06 AM CDT 03/12/2024 6:10 AM CDT Eileen Earl MD LAB - BLOOD ORDERA BLES LABORATORY [facility] Care Lab [address] Lab (1st floor, no room number) [place] [address] * (ABNORMAL) Glucose by meter (03/12/2024 1:55 AM CDT) GLUCOSE BY METER POCT 107(H) 70 - 99 mg/dL 03/12/2024 2:01 AM CDT LABORATORY POC Blood, Capillary BLOOD SPECIMEN / Unknown 03/12/2024 1:55 AM CDT 03/12/2024 2:01 AM CDT Ron DEAN - DAVID POCT LABORATORY [facility] Care Lab [address] Lab (1st floor, no room number) [place] [address] * (ABNORMAL) Glucose by meter (03/11/2024 9:11 PM CDT) GLUCOSE BY METER POCT 132(H) 70 - 99 mg/dL 03/11/2024 9:18 PM CDT LABORATORY POC Blood, Capillary BLOOD SPECIMEN / Unknown 03/11/2024 9:11 PM CDT 03/11/2024 9:18 PM CDT Ron DEAN - [place] POCT LABORATORY [facility] Lab [address] Lab (1st floor, no room number) [place] [address], [facility] * (ABNORMAL) Hemoglobin (03/11/2024 6:10 PM CDT) Hemoglobin 8.8(L) 13.3 - 17.7 g/dL 03/11/2024 6:22 PM CDT [facility] LAB[facility]AT[facility] Blood STRUCTURE OF RIGHT UPPER LIMB / Unknown Venipuncture / Unknown 03/11/2024 6:10 PM CDT 03/11/2024 6:20 PM CDT Aashish Romero DO LAB - BLOOD ORDER NADIA [facility] Care Lab [address] Lab (1st floor, no room number) [place] [id number] * (ABNORMAL) Glucose by meter (03/11/2024 5:31 PM CDT) GLUCOSE BY METER POCT 144(H) 70 - 99 mg/dL 03/11/2024 5:39 PM CDT [facility] LABORATORY POC Blood, Capillary BLOOD SPECIMEN / Unknown 03/11/2024 5:31 PM CDT 03/11/2024 5:39 PM CDT Ron DEAN - [facility] POCT LABORATORY [facility] Care Lab [address] Lab (1st floor, no room number) [place] [address] * (ABNORMAL) Glucose by meter (03/11/2024 11:47 AM CDT) GLUCOSE BY METER POCT 117(H) 70 - 99 mg/dL 03/11/2024 11:54 AM CDT [facility] LABORAT[facility] POC Blood, Capillary BLOOD SPECIMEN / Unknown 03/11/2024 11:47 AM CDT 03/11/2024 11:54 AM CDT Ron Tripathi MD LAB - BEAKER POCT LABORATORY [facility] Lab [address] Lab (1st floor, no room number) [place] [address] * Glucose by meter (03/11/2024 7:36 AM CDT) GLUCOSE BY METER POCT 81 70 - 99 mg/dL 03/11/2024 7:45 AM CDT [facility] LAB[facility]AT[facility] POC Blood, Capillary BLOOD SPECIMEN / Unknown 03/11/2024 7:36 AM CDT 03/11/2024 7:45 AM CDT Ron Tripathi MD LAB - BEAKER POCT [facility] LABORATORY POC [facility] Acute Care Lab [address] Lab (1st floor, no room number) [place] [id number] * (ABNORMAL) Renal panel (03/11/2024 7:03 AM CDT) Sodium 126(L) 135 - 145 mmol/L 03/11/2024 7:33 AM CDT [facility] Comment:Reference intervals for this test were updated on 07/05/2023 to more accurately reflect our healthy population. There may be differences in the flagging of prior results with similar values performed with this method. Interpretation of those prior results can be made in the context of the updated reference intervals. Potassium 4.8 3.4 - 5.3 mmol/L 03/11/2024 7:33 AM CDT LABORATORY Chloride 89(L) 98 - 107 mmol/L 03/11/2024 7:33 AM CDT LABORATORY Carbon Dioxide (CO2) 26 22 - 29 mmol/L 03/11/2024 7:33 AM CDT RH LAB[facility] Anion Gap 11 7 - 15 mmol/L 03/11/2024 7:33 AM CDT [facility] Glucose 88 70 - 99 mg/dL 03/11/2024 7:33 AM CDT [facility] Urea Nitrogen 36.6(H) 8.0 - 23.0 mg/dL 03/11/2024 7:33 AM CDT [facility] LAB[facility] Creatinine 6.71(H) 0.67 - 1.17 mg/dL 03/11/2024 7:33 AM CDT LABORATORY GFR Estimate 9(L) >60 mL/min/1. 73m2 03/11/2024 7:33 AM CDT [facility] Calcium 8.0(L) 8.8 - 10.2 mg/dL 03/11/2024 7:33 AM CDT [facility] LAB[facility] Albumin 2.6(L) 3.5 - 5.2 g/dL 03/11/2024 7:33 AM CDT [facility] Phosphorus 2.9 2.5 - 4.5 mg/dL 03/11/2024 7:33 AM CDT [facility] Blood STRUCTURE OF RIGHT UPPER LIMB / Unknown Venipuncture / Unknown 03/11/2024 7:03 AM CDT 03/11/2024 7:10 AM CDT Eileen Earl MD LAB - BLOOD ORDERA BLES [facility] Acute Care Lab [address] Lab (1st floor, no room number) [address] * INR (03/11/2024 7:03 AM CDT) INR 1.11 0.85 - 1.15 03/11/2024 7:31 AM CDT [facility] Blood STRUCTURE OF RIGHT UPPER LIMB / Unknown Venipuncture / Unknown 03/11/2024 7:03 AM CDT 03/11/2024 7:10 AM CDT Eileen Earl MD LAB - BLOOD ORDERA BLES [facility] Acute Care Lab [address] Lab (1st floor, no room number) [place] [phone] [place] [address] * (ABNORMAL) CBC with platelets (03/11/2024 7:03 AM CDT) WBC Count 9.9 4.0 - 11.0 10e3/uL [...] LAB - BLOOD ORDER NADIA [facility] LAB[facility]AT[facility] [address] [facility]1st floor, no room number) [place] [phone] * XR Chest Port 1 View (03/11/2024 3:25 AM CDT) Anatomical Region Laterality Modality Chest Digital Radiogra phy 03/11/2024 3:25 AM CDT Impressions 03/11/2024 3:30 AM CDT IMPRESSION: Normal heart size and pulmonary vascularity. Lungs clear. No pneumothorax. Minimal fluid or thickening along the right fissure. Narrative 03/11/2024 3:30 AM CDT EXAM: XR CHEST PORT 1 VIEW LOCATION: [facility] DATE: 03/11/2024 INDICATION: Shortness of breath COMPARISON: None. Procedure Note David Díaz MD - 03/11/2024 EXAM: XR CHEST PORT 1 VIEW LOCATION: [facility] DATE: 03/11/2024 INDICATION: Shortness of breath COMPARISON: None. IMPRESSION: Normal heart size and pulmonary vascularity. Lungs clear. Nopneumothorax. Minimal fluid or thickening along the right fissure. Addis Zhang MD, IMG DIAGNOSTIC [facility] ORDERABLES * Glucose by meter (03/11/2024 3:03 AM CDT) GLUCOSE BY METER POCT 94 70 - 99 mg/dL 03/11/2024 3:10 AM CDT RH LABORATORY POC Blood, Capillary BLOOD SPECIMEN / Unknown 03/11/2024 3:03 AM CDT 03/11/2024 3:10 AM CDT Ron DEAN - DAVID POCT Performing Organization Address [facility]/ZIP Co de Phone Number LABORATORY [facility] [address] Lab (1st floor, no room number) [place] [phone] [place] [address] * (ABNORMAL) Glucose by meter (03/11/2024 1:57 AM CDT) GLUCOSE BY METER POCT 120(H) 70 - 99 mg/dL 03/11/2024 2:04 AM CDT LABORATORY POC Blood, Capillary BLOOD SPECIMEN / Unknown 03/11/2024 1:57 AM CDT 03/11/2024 2:04 AM CDT Ron HERNANDEZ POCT LABORATORY [facility] [address] Lab (1st floor, no room number) [place] [phone] [place] [address] * CONDITIONAL Transfuse red blood cells (unit) 1; No special requirements (03/10/2024 11:23 PM CDT) Eileen Earl MD BLOOD TRANSFUSION ORDERABLES * (ABNORMAL) Glucose by meter (03/10/2024 9:04 PM CDT) GLUCOSE BY METER POCT 148(H) 70 - 99 mg/dL 03/10/2024 9:11 PM CDT RH LABORATORY POC Blood, Capillary BLOOD SPECIMEN / Unknown 03/10/2024 9:04 PM CDT 03/10/2024 9:11 PM CDT Ron Tripathi MD LAB - BEAKER POCT RH LABORATORY POC [facility] [address] [facility] Lab (1st floor, no room number) [place] [address] * Adult Type and Screen (03/10/2024 6:53 PM CDT) ABO/RH(D) O POS 03/10/2024 6:44 PM CDT RH BLOOD BANK Antibody Screen Negative Negative 03/10/2024 6:44 PM CDT RH BLOOD BANK SPECIMEN EXPIRATION DATE [id number] 03/10/2024 6:44 PM CDT RH BLOOD BANK Blood STRUCTURE OF RIGHT UPPER LIMB / Unknown Venipuncture / Unknown 03/10/2024 6:53 PM CDT 03/10/2024 6:57 PM CDT Antonino Cheek MD LAB - BLOOD BANK SHANNON T ORDER Performing Organization Address City/[facility]/ZIP Co de Phone Number RH BLOOD BANK [address] [place] [address] * CONDITIONAL Prepare red blood cells (unit) (03/10/2024 6:37 PM CDT) Blood Component Type Red Blood Cells RH BLOOD BANK Product Code [id number] RH BLOO D BANK Unit Status Transfused RH BLOO D BANK Unit Number [id number] RH B LOOD BANK CROSSMATCH Compatible RH BLOOD BANK CODING SYSTEM [id number] RH BLO OD BANK ISSUE DATE AND TIME [id number] RH BLOOD BANK UNIT ABO/RH O+ RH BLOOD BANK UNIT TYPE ISBT 5100 RH BL OOD BANK 03/10/2024 6:37 PM CDT Eileen Earl MD BLOOD BANK PRODUCT ORDERABLES Performing Organization Address [facility]/ZIP Co de Phone Number BLOOD BANK [address] [place] [address] * (ABNORMAL) Hemoglobin (03/10/2024 6:00 PM CDT) Hemoglobin 7.0(L) 13.3 - 17.7 g/dL 03/10/2024 6:09 PM CDT RH LABORATORY Blood STRUCTURE OF RIGHT UPPER LIMB / Unknown Venipuncture / Unknown 03/10/2024 6:00 PM CDT 03/10/2024 6:07 PM CDT Aashish Romero DO LAB - BLOOD ORDER NADIA Performing Organization Address [facility]/ZIP Co de Phone Number [facility] Lab [address] Lab (1st floor, no room number) [place] [address], [facility] * (ABNORMAL) Glucose by meter (03/10/2024 4:49 PM CDT) GLUCOSE BY METER POCT 208(H) 70 - 99 mg/dL 03/10/2024 5:05 PM CDT LABORATORY POC Blood, Capillary BLOOD SPECIMEN / Unknown 03/10/2024 4:49 PM CDT 03/10/2024 5:05 PM CDT Ron Tripathi MD LAB - BEAKER POCT Performing Organization Address [facility]/ZIP Co de Phone Number LABORATORY [facility] Lab [address] Lab (1st floor, no room number) [place] [address], [facility] * Glucose by meter (03/10/2024 2:35 PM CDT) GLUCOSE BY METER POCT 98 70 - 99 mg/dL 03/10/2024 2:43 PM CDT LABORATORY POC Blood, Capillary BLOOD SPECIMEN / Unknown 03/10/2024 2:35 PM CDT 03/10/2024 2:43 PM CDT Narrative Authorizing Provider Result Lauren Tripathi MD LAB - BEAKER POCT LABORATORY [facility] Lab [address] Lab (1st floor, no room number) [place] [address], [place] * Glucose by meter (03/10/2024 1:28 PM CDT) GLUCOSE BY METER POCT 94 70 - 99 mg/dL 03/10/2024 1:37 PM CDT RH LABORATORY POC Blood, Capillary BLOOD SPECIMEN / Unknown 03/10/2024 1:28 PM CDT 03/10/2024 1:37 PM CDT Narrative Authorizing Provider Result Lauren Tripathi MD LAB - BEAKER POCT Performing Organization Address City/[facility]/ZIP Co de Phone Number LABORATORY [facility] Lab [address] Lab (1st floor, no room number) [place] [address] * Glucose by meter (03/10/2024 12:35 PM CDT) GLUCOSE BY METER POCT 92 70 - 99 mg/dL 03/10/2024 12:50 PM CDT RH LABORATORY POC Blood, Capillary BLOOD SPECIMEN / Unknown 03/10/2024 12:35 PM CDT 03/10/2024 12:50 PM CDT Ron DEAN - BEAKER POCT LABORATORY [facility] Lab [address] Lab (1st floor, no room number) [place] [address], [facility] * (ABNORMAL) Glucose by meter (03/10/2024 11:28 AM CDT) GLUCOSE BY METER POCT 102(H) 70 - 99 mg/dL 03/10/2024 11:35 AM CDT RH LABORATORY POC Blood, Capillary BLOOD SPECIMEN / Unknown 03/10/2024 11:28 AM CDT 03/10/2024 11:35 AM CDT Ron DEAN - BEAKER POCT Performing Organization Address City/[facility]/ZIP Co de Phone Number LABORATORY [facility] [address] Lab (1st floor, no room number) [address] [place] [address] * (ABNORMAL) Glucose by meter (03/10/2024 10:35 AM CDT) GLUCOSE BY METER POCT 133(H) 70 - 99 mg/dL 03/10/2024 10:42 AM CDT RH LABORATORY POC Blood, Capillary BLOOD SPECIMEN / Unknown 03/10/2024 10:35 AM CDT 03/10/2024 10:42 AM CDT Ron Tripathi MD LAB - BEAKER POCT Performing Organization Address [facility]/ZIP Co de Phone Number LABORATORY [facility] [address] Lab (1st floor, no room number) [place] [phone] [place] [address] * (ABNORMAL) Glucose by meter (03/10/2024 8:32 AM CDT) GLUCOSE BY METER POCT 105(H) 70 - 99 mg/dL 03/10/2024 8:45 AM CDT RH LABORATORY POC Blood, Capillary BLOOD SPECIMEN / Unknown 03/10/2024 8:32 AM CDT 03/10/2024 8:45 AM CDT Narrative Authorizing Provider Result Lauren DEAN - EVERAKER POCT Performing Organization Address City/[facility]/ZIP Co de Phone Number LABORATORY [facility] Lab [address] Lab (1st floor, no room number) [address] * (ABNORMAL) Hemoglobin (03/10/2024 7:46 AM CDT) Hemoglobin 7.0(L) 13.3 - 17.7 g/dL 03/10/2024 7:55 AM CDT RH LABORATORY Blood STRUCTURE OF RIGHT UPPER LIMB / Unknown Venipuncture / Unknown 03/10/2024 7:46 AM CDT 03/10/2024 7:50 AM CDT Ron Tripathi MD LAB - BLOOD ORDERABL ES RH LABORATORY [facility] [address] Lab (1st floor, no room number) [place] [address] * (ABNORMAL) Renal panel (03/10/2024 7:46 AM CDT) Sodium 124(L) 135 - 145 mmol/L 03/10/2024 8:10 AM CDT LABORATORY Comment:Reference intervals for this test were updated on 07/05/2023 to more accurately reflect our healthy population. There may be differences in the flagging of prior results with similar values performed with this method. Interpretation of those prior results can be made in the context of the updated reference intervals. Potassium 4.6 3.4 - 5.3 mmol/L 03/10/2024 8:10 AM CDT LABORATORY Chloride 89(L) 98 - 107 mmol/L 03/10/2024 8:10 AM CDT LABORATORY Carbon Dioxide (CO2) 25 22 - 29 mmol/L 03/10/2024 8:10 AM CDT LABORATORY Anion Gap 10 7 - 15 mmol/L 03/10/2024 8:10 AM CDT LABORATORY Glucose 95 70 - 99 mg/dL 03/10/2024 8:10 AM CDT LABORATORY Urea Nitrogen 29.1(H) 8.0 - 23.0 mg/dL 03/10/2024 8:10 AM CDT LABORATORY Creatinine 5.54(H) 0.67 - 1.17 mg/dL 03/10/2024 8:10 AM CDT LABORATORY GFR Estimate 11(L) >60 mL/min/1. 73m2 03/10/2024 8:10 AM CDT RH LABORATORY Calcium 7.4(L) 8.8 - 10.2 mg/dL 03/10/2024 8:10 AM CDT LABORATORY Albumin 2.6(L) 3.5 - 5.2 g/dL 03/10/2024 8:10 AM CDT RH LABORATORY Phosphorus 3.0 2.5 - 4.5 mg/dL 03/10/2024 8:10 AM CDT RH LABORATORY Blood STRUCTURE OF RIGHT UPPER LIMB / Unknown Venipuncture / Unknown 03/10/2024 7:46 AM CDT 03/10/2024 7:50 AM CDT Eileen Earl MD LAB - BLOOD ORDERA BLERobin LABORATORY [facility] [address] Lab (1st floor, no room number) [address] [place] [address] * (ABNORMAL) INR (03/10/2024 7:46 AM CDT) INR 1.18(H) 0.85 - 1.15 03/10/2024 8:03 AM CDT RH LABORATORY Blood STRUCTURE OF RIGHT UPPER LIMB / Unknown Venipuncture / Unknown 03/10/2024 7:46 AM CDT 03/10/2024 7:50 AM CDT Eileen Earl MD LAB - BLOOD KIMA BLERobin Performing Organization Address [facility]/ZIP Co de Phone Number [facility] Lab [address] Lab (1st floor, no room number) [place] [phone] [place] [address] * (ABNORMAL) Glucose by meter (03/10/2024 3:38 AM CDT) GLUCOSE BY METER POCT 112(H) 70 - 99 mg/dL 03/10/2024 3:44 AM CDT LABORATORY POC Blood, Capillary BLOOD SPECIMEN / Unknown 03/10/2024 3:38 AM CDT 03/10/2024 3:44 AM CDT Ron Tripathi MD LAB - BEAKER POCT Performing Organization Address City/[facility]/ZIP Co de Phone Number LABORATORY POC [facility] [address] Lab (1st floor, no room number) [place] [phone] [place] [address] * Glucose by meter (03/10/2024 12:05 AM CDT) GLUCOSE BY METER POCT 97 70 - 99 mg/dL 03/10/2024 12:11 AM CDT RH LABORATORY POC Blood, Capillary BLOOD SPECIMEN / Unknown 03/10/2024 12:05 AM CDT 03/10/2024 12:11 AM CDT Narrative Authorizing Provider Result Lauren DEAN - BEAKER POCT LABORATORY POC [facility] Lab [address] Lab (1st floor, no room number) [place] [phone] [place] [address] * (ABNORMAL) Hemoglobin (03/09/2024 11:50 PM CDT) Hemoglobin 7.5(L) 13.3 - 17.7 g/dL 03/09/2024 11:57 PM CDT LABORATORY Blood STRUCTURE OF RIGHT HAND / Unknown Venipuncture / Unknown 03/09/2024 11:50 PM CDT 03/09/2024 11:53 PM CDT Narrative Authorizing Provider Result Lauren Tripathi MD LAB - BLOOD ORDERABL ES LABORATORY [facility] Lab [address] Lab (1st floor, no room number) [place] [phone] [place] [address] * (ABNORMAL) Glucose by meter (03/09/2024 8:25 PM CDT) GLUCOSE BY METER POCT 159(H) 70 - 99 mg/dL 03/09/2024 8:32 PM CDT RH LABORATORY POC Blood, Capillary BLOOD SPECIMEN / Unknown 03/09/2024 8:25 PM CDT 03/09/2024 8:32 PM CDT Narrative Authorizing Provider Result Lauren DEAN - BEAKER POCT LABORATORY [facility] [address] Lab (1st floor, no room number) [place] [phone] * (ABNORMAL) Hemoglobin (03/09/2024 7:13 PM CDT) Hemoglobin 7.6(L) 13.3 - 17.7 g/dL 03/09/2024 7:27 PM CDT RH LABORATORY Blood VENOUS LINE / Unknown Venipuncture / Unknown 03/09/2024 7:13 PM CDT 03/09/2024 7:25 PM CDT Ron Tripathi MD LAB - BLOOD ORDERABL ES [facility] [address] Lab (1st floor, no room number) [place] [address] * (ABNORMAL) Glucose by meter (03/09/2024 4:12 PM CDT) GLUCOSE BY METER POCT 147(H) 70 - 99 mg/dL 03/09/2024 4:19 PM CDT LABORATORY POC Blood, Capillary BLOOD SPECIMEN / Unknown 03/09/2024 4:12 PM CDT 03/09/2024 4:19 PM CDT Ron Tripathi MD LAB - BEAKER POCT LABORATORY [facility] [address] Lab (1st floor, no room number) [place] [phone] * (ABNORMAL) Hemoglobin (03/09/2024 2:16 PM CDT) Hemoglobin 7.6(L) 13.3 - 17.7 g/dL 03/09/2024 2:43 PM CDT RH LABORATORY Blood VASCULAR LINE / Unknown Venipuncture / Unknown 03/09/2024 2:16 PM CDT 03/09/2024 2:29 PM CDT Ron Tripathi MD LAB - BLOOD ORDERABL ES LABORATORY [facility] [address] Lab (1st floor, no room number) [place] [phone] [place] [address] * (ABNORMAL) Glucose by meter (03/09/2024 1:35 PM CDT) GLUCOSE BY METER POCT 150(H) 70 - 99 mg/dL 03/09/2024 1:42 PM CDT RH LABORATORY POC Blood, Capillary BLOOD SPECIMEN / Unknown 03/09/2024 1:35 PM CDT 03/09/2024 1:42 PM CDT Ron Tripathi MD LAB - BEAKER POCT Performing Organization Address City/[facility]/ZIP Co de Phone Number LABORATORY POC [facility] Lab [address] Lab (1st floor, no room number) [place] [phone] * Morphology Tracking (03/09/2024 9:12 AM CDT) Blood VENOUS LINE / Unknown Venipuncture / Unknown 03/09/2024 9:12 AM CDT 03/09/2024 9:26 AM CDT Antonino Cheek MD LAB - BLOOD ORDERABL ES Performing Organization Address City/[facility]/ZIP Co de Phone Number LABORATORY [facility] [address] Lab (1st floor, no room number) [place] [phone] * (ABNORMAL) Reticulocyte count (03/09/2024 9:12 AM CDT) % Reticulocyte 2.8(H) 0.5 - 2.0 % 03/09/2024 9:33 AM CDT RH LABORATORY Absolute Reticulocyte 0.072 0.025 - 0.095 10e6/uL 03/09/2024 9:33 AM CDT RH LABORATORY Blood VENOUS LINE / Unknown Venipuncture / Unknown 03/09/2024 9:12 AM CDT 03/09/2024 9:26 AM CDT Antonino Cheek MD LAB - BLOOD ORDERABL ES RH LABORATORY [facility] [address] Lab (1st floor, no room number) [place] [address], [facility] * (ABNORMAL) CBC with platelets and differential (03/09/2024 9:12 AM CDT) WBC Count 10.1 4.0 - 11.0 10e3/uL 03/09/2024 9:33 AM CDT RH LABORATORY RBC Count 2.55(L) 4.40 - 5.90 10e6/uL 03/09/2024 9:33 AM CDT RH LABORATORY Hemoglobin 7.5(L) 13.3 - 17.7 g/dL 03/09/2024 9:33 AM CDT RH LABORATORY Hematocrit 22.5(L) 40.0 - 53.0 % 03/09/2024 9:33 AM CDT RH LABORATORY MCV 88 78 - 100 fL 03/09/2024 9:33 AM CDT RH LABORATORY MCH 29.4 26.5 - 33.0 pg 03/09/2024 9:33 AM CDT RH LABORATORY MCHC 33.3 31.5 - 36.5 g/dL 03/09/2024 9:33 AM CDT RH LABORATORY RDW 15.4(H) 10.0 - 15.0 % 03/09/2024 9:33 AM CDT RH LABORATORY Platelet Count 159 150 - 450 10e3/uL 03/09/2024 9:33 AM CDT RH LABORATORY % Neutrophils 84 % 03/09/2024 9:33 AM CDT RH LABORATORY % Lymphocytes 5 % 03/09/2024 9:33 AM CDT RH LABORATORY % Monocytes 7 % 03/09/2024 9:33 AM CDT RH LABORATORY % Eosinophils 3 % 03/09/2024 9:33 AM CDT RH LABORATORY % Basophils 0 % 03/09/2024 9:33 AM CDT RH LABORATORY % Immature Granulocytes 1 % 03/09/2024 9:33 AM CDT RH LABORATORY NRBCs per 100 WBC 0 <1 /100 024 9:33 AM CDT RH LABORATORY Absolute Neutrophils 8.5(H) 1.6 - 8.3 10e3/uL 03/09/2024 9:33 AM CDT RH LABORATORY Absolute Lymphocytes 0.5(L) 0.8 - 5.3 10e3/uL 03/09/2024 9:33 AM CDT LABORATORY Absolute Monocytes 0.7 0.0 - 1.3 10e3/uL 03/09/2024 9:33 AM CDT RH LABORATORY Absolute Eosinophils 0.3 0.0 - 0.7 10e3/uL 03/09/2024 9:33 AM CDT LABORATORY Absolute Basophils 0.0 0.0 - 0.2 10e3/uL 03/09/2024 9:33 AM CDT LABORATORY Absolute Immature Granulocytes 0.1 <=0.4 10e3/uL 03/09/2024 9:33 AM CDT LABORATORY Absolute NRBCs 0.0 10e3/uL 03/09/2024 9:33 AM CDT LABORATORY Blood VENOUS LINE / Unknown Venipuncture / Unknown 03/09/2024 9:12 AM CDT 03/09/2024 9:26 AM CDT Antonino Cheek MD LAB - BLOOD ORDERABL ES LABORATORY [facility] [address] Lab (1st floor, no room number) [place] [address], [facility] * Bld morphology pathology review (03/09/2024 9:12 AM CDT) Final Diagnosis Peripheral blood for morphology: -Moderate normochromic, normocytic anemia without evidence of red cell regeneration; no morphologic or laboratory features of hemolysis detected -Slight mature neutrophilia without morphologic abnormalities 03/13/2024 10:17 AM CDT [facility] Comment Review of recent laboratory data notes normal LDH and haptoglobin. The history of GI bleeding and end-stage renal disease on hemodialysis are noted. Both conditions would contribute to the anemia present. 03/13/2024 10:17 AM [facility] Clinical Information Looking for signs of hemolysis 03/13/2024 10:17 AM [facility] Peripheral Smear ERYTHROCYTES: The hemoglobin [...] than 50: Marked thrombocytopenia 03/13/2024 10:17 AM [facility] LAB Performing Labs The technical component of this testing was completed at [facility], [facility] and [facility] 03/13/2024 10:17 AM [facility] LAB Blood VENOUS LINE / Unknown [...] for interpretation. Antonino DEAN - DAVID VALENCIA [facility] PATH[facility] Lab [address] 1[address], [address] [place] [address] * Haptoglobin (03/09/2024 9:12 AM CDT) Haptoglobin 127 30 - 200 mg/dL 03/10/2024 1:23 AM CDT [facility] LABORATORY Blood VENOUS LINE / Unknown Venipuncture / Unknown 03/09/2024 9:12 AM CDT 03/09/2024 9:26 AM CDT Antonino Cheek MD LAB - BLOOD ORDERABL ES U LABORATORY [facility] [facility] [address] [facility], [address] [place] [address], [facility] * Bilirubin Direct and Total (03/09/2024 9:12 AM CDT) Bilirubin Direct 0.22 0.00 - 0.30 mg/dL 03/09/2024 9:59 AM CDT LABORATORY Bilirubin Total 0.5 <=1.2 mg/dL 03/09/2024 9:59 AM CDT LABORATORY Blood VENOUS LINE / Unknown Venipuncture / Unknown 03/09/2024 9:12 AM CDT 03/09/2024 9:26 AM CDT Antonino Cheek MD LAB - BLOOD ORDERABL ES LABORATORY [facility] [address] Lab (1st floor, no room number) [place] [address], [facility] * Lactate Dehydrogenase (03/09/2024 9:12 AM CDT) Lactate Dehydrogenase 226 0 - 250 U/L 03/09/2024 9:59 AM CDT LABORATORY Blood VENOUS LINE / Unknown Venipuncture / Unknown 03/09/2024 9:12 AM CDT 03/09/2024 9:26 AM CDT Antonino Cheek MD LAB - BLOOD ORDERABL ES [facility] Lab [address] Lab (1st floor, no room number) [address] [place] [address] * INR (03/09/2024 9:12 AM CDT) INR 1.13 0.85 - 1.15 03/09/2024 9:41 AM CDT LABORATORY Blood VENOUS LINE / Unknown Venipuncture / Unknown 03/09/2024 9:12 AM CDT 03/09/2024 9:26 AM CDT Eileen Earl MD LAB - BLOOD ORDERA BLES [facility] [address] Lab (1st floor, no room number) [place] [phone] [place] [address] * Glucose by meter (03/09/2024 7:55 AM CDT) GLUCOSE BY METER POCT 91 70 - 99 mg/dL 03/09/2024 8:04 AM CDT LABORATORY POC Comment:Dr/RN Notified Blood, Capillary BLOOD SPECIMEN / Unknown 03/09/2024 7:55 AM CDT 03/09/2024 8:04 AM CDT Ron Tripathi MD LAB - BEAKER POCT LABORATORY POC [facility] [address] Lab (1st floor, no room number) [place] [phone] [place] [address] * (ABNORMAL) Renal panel (03/09/2024 5:49 AM CDT) Sodium 124(L) 135 - 145 mmol/L 03/09/2024 6:18 AM CDT LABORATORY Comment:Reference intervals for this test were updated on 07/05/2023 to more accurately reflect our healthy population. There may be differences in the flagging of prior results with similar values performed with this method. Interpretation of those prior results can be made in the context of the updated reference intervals. Potassium 5.5(H) 3.4 - 5.3 mmol/L 03/09/2024 6:18 AM CDT LABORATORY Chloride 86(L) 98 - 107 mmol/L 03/09/2024 6:18 AM CDT LABORATORY Carbon Dioxide (CO2) 23 22 - 29 mmol/L 03/09/2024 6:18 AM CDT LABORATORY Anion Gap 15 7 - 15 mmol/L 03/09/2024 6:18 AM CDT LABORATORY Glucose 111(H) 70 - 99 mg/dL 03/09/2024 6:18 AM CDT LABORATORY Urea Nitrogen 34.6(H) 8.0 - 23.0 mg/dL 03/09/2024 6:18 AM CDT LABORATORY Creatinine 6.70(H) 0.67 - 1.17 mg/dL 03/09/2024 6:18 AM CDT LABORATORY GFR Estimate 9(L) >60 mL/min/1. 73m2 03/09/2024 6:18 AM CDT LABORATORY Calcium 7.2(L) 8.8 - 10.2 mg/dL 03/09/2024 6:18 AM CDT LABORATORY Albumin 2.8(L) 3.5 - 5.2 g/dL 03/09/2024 6:18 AM CDT LABORATORY Phosphorus 3.9 2.5 - 4.5 mg/dL 03/09/2024 6:18 AM CDT LABORATORY Blood VENOUS LINE / Unknown Venipuncture / Unknown 03/09/2024 5:49 AM CDT 03/09/2024 5:57 AM CDT Eileen Earl MD LAB - BLOOD ORDERA BLES [facility] [address] Lab (1st floor, no room number) [address] * (ABNORMAL) Hemoglobin (03/09/2024 5:49 AM CDT) Hemoglobin 7.5(L) 13.3 - 17.7 g/dL 03/09/2024 6:00 AM CDT RH LABORATORY Blood VENOUS LINE / Unknown Venipuncture / Unknown 03/09/2024 5:49 AM CDT 03/09/2024 5:57 AM CDT Ron Tripathi MD LAB - BLOOD ORDERABL ES [facility] Lab [address] Lab (1st floor, no room number) [place] [phone] [place] [address] * (ABNORMAL) Glucose by meter (03/09/2024 4:31 AM CDT) GLUCOSE BY METER POCT 112(H) 70 - 99 mg/dL 03/09/2024 4:37 AM CDT LABORATORY POC Blood, Capillary BLOOD SPECIMEN / Unknown 03/09/2024 4:31 AM CDT 03/09/2024 4:37 AM CDT Ron Tripathi MD LAB - BEAKER POCT [facility] Lab [address] Lab (1st floor, no room number) [address] * (ABNORMAL) Glucose by meter (03/09/2024 12:26 AM CDT) GLUCOSE BY METER POCT 124(H) 70 - 99 mg/dL 03/09/2024 12:32 AM CDT LABORATORY POC Blood, Capillary BLOOD SPECIMEN / Unknown 03/09/2024 12:26 AM CDT 03/09/2024 12:32 AM CDT Ron Tripathi MD LAB - BEAKER POCT LABORATORY [facility] Lab [address] Lab (1st floor, no room number) [place] [phone] [place] [address] * (ABNORMAL) Hemoglobin (03/08/2024 10:35 PM CDT) Hemoglobin 7.5(L) 13.3 - 17.7 g/dL 03/08/2024 10:48 PM CDT RH LABORATORY Blood BLOOD SPECIMEN / Unknown Venipuncture / Unknown 03/08/2024 10:35 PM CDT 03/08/2024 10:45 PM CDT Antonino Cheek MD LAB - BLOOD ORDERABL ES Performing Organization Address [facility]/ZIP Co de Phone Number [facility] [address] Lab (1st floor, no room number) [place] [phone] * (ABNORMAL) Glucose by meter (03/08/2024 10:09 PM CDT) GLUCOSE BY METER POCT 116(H) 70 - 99 mg/dL 03/08/2024 10:15 PM CDT LABORATORY POC Blood, Capillary BLOOD SPECIMEN / Unknown 03/08/2024 10:09 PM CDT 03/08/2024 10:15 PM CDT Ron DEAN - [facility] [address] Lab (1st floor, no room number) [place] [id number] * (ABNORMAL) Glucose by meter (03/08/2024 8:11 PM CDT) GLUCOSE BY METER POCT 114(H) 70 - 99 mg/dL 03/08/2024 8:18 PM CDT [facility] POC Blood, Capillary BLOOD SPECIMEN / Unknown 03/08/2024 8:11 PM CDT 03/08/2024 8:18 PM CDT Narrative Authorizing Provider Result Lauren Tripathi MD LAB - [facility] LABORATORY [facility] [address] Lab (1st floor, no room number) [place] [address], [facility] * Glucose by meter (03/08/2024 5:59 PM CDT) GLUCOSE BY METER POCT 84 70 - 99 mg/dL 03/08/2024 6:05 PM CDT [facility] POC Blood, Capillary BLOOD SPECIMEN / Unknown 03/08/2024 5:59 PM CDT 03/08/2024 6:05 PM CDT Ron Tripathi MD LAB - [facility] Performing Organization Address City/[facility]/ZIP Co de Phone Number LABORATORY [facility] [address] Lab (1st floor, no room number) [place] [address], [facility] * Glucose by meter (03/08/2024 5:28 PM CDT) GLUCOSE BY METER POCT 99 70 - 99 mg/dL 03/08/2024 5:35 PM CDT [facility] POC Blood, Capillary BLOOD SPECIMEN / Unknown 03/08/2024 5:28 PM CDT 03/08/2024 5:35 PM CDT Narrative Authorizing Provider Result Lauren Tripathi MD LAB - BEAKER POCT LABORATORY [facility] Lab [address] Lab (1st floor, no room number) [place] [address], [facility] * Glucose by meter (03/08/2024 5:02 PM CDT) GLUCOSE BY METER POCT 79 70 - 99 mg/dL 03/08/2024 5:08 PM CDT RH LABORATORY POC Blood, Capillary BLOOD SPECIMEN / Unknown 03/08/2024 5:02 PM CDT 03/08/2024 5:08 PM CDT Narrative Authorizing Provider Result Lauren DEAN - BEAKER POCT Performing Organization Address [facility]/State/ZIP Co de Phone Number LABORATORY [facility] [address] Lab (1st floor, no room number) [place] [address] * (ABNORMAL) Glucose by meter (03/08/2024 4:36 PM CDT) GLUCOSE BY METER POCT 63(L) 70 - 99 mg/dL 03/08/2024 4:43 PM CDT LABORATORY POC Blood, Capillary BLOOD SPECIMEN / Unknown 03/08/2024 4:36 PM CDT 03/08/2024 4:43 PM CDT Narrative Authorizing Provider Result Lauren Tripathi MD LAB - BEXIANG POCT Performing Organization Address [facility]/ZIP Co de Phone Number LABORATORY [facility] [address] Lab (1st floor, no room number) [place] [address], [facility] * (ABNORMAL) Glucose by meter (03/08/2024 3:59 PM CDT) GLUCOSE BY METER POCT 68(L) 70 - 99 mg/dL 03/08/2024 4:06 PM CDT LABORATORY POC Blood, Capillary BLOOD SPECIMEN / Unknown 03/08/2024 3:59 PM CDT 03/08/2024 4:06 PM CDT Narrative Authorizing Provider Result Lauren DEAN - BEAKER POCT Performing Organization Address [facility]/ZIP Co de Phone Number LABORATORY [facility] [address] Lab (1st floor, no room number) [place] [phone], [facility] * (ABNORMAL) Hemoglobin (03/08/2024 2:42 PM CDT) Hemoglobin 8.1(L) 13.3 - 17.7 g/dL 03/08/2024 3:25 PM CDT RH LABORATORY Blood VASCULAR LINE / Unknown Venipuncture / Unknown 03/08/2024 2:42 PM CDT 03/08/2024 2:58 PM CDT Antonino Cheek MD LAB - BLOOD ORDERABL ES LABORATORY [facility] [address] Lab (1st floor, no room number) [place] [address], [facility] * (ABNORMAL) Glucose by meter (03/08/2024 2:16 PM CDT) GLUCOSE BY METER POCT 104(H) 70 - 99 mg/dL 03/08/2024 2:23 PM CDT RH LABORATORY POC Comment:Dr/RN Notified Blood, Capillary BLOOD SPECIMEN / Unknown 03/08/2024 2:16 PM CDT 03/08/2024 2:23 PM CDT Ron Tripathi MD LAB - BEAKER POCT LABORATORY [facility] Lab [address] Lab (1st floor, no room number) [place] [address], [facility] * (ABNORMAL) Glucose by meter (03/08/2024 1:56 PM CDT) GLUCOSE BY METER POCT 52(L) 70 - 99 mg/dL 03/08/2024 2:03 PM CDT LABORATORY POC Blood, Capillary BLOOD SPECIMEN / Unknown 03/08/2024 1:56 PM CDT 03/08/2024 2:03 PM CDT Ron Tripathi MD LAB - BEAKER POCT LABORATORY [facility] Lab [address] Lab (1st floor, no room number) [place] [address] * (ABNORMAL) Glucose by meter (03/08/2024 1:36 PM CDT) GLUCOSE BY METER POCT 69(L) 70 - 99 mg/dL 03/08/2024 1:49 PM CDT LABORATORY POC Blood, venous BLOOD SPECIMEN / Unknown 03/08/2024 1:36 PM CDT 03/08/2024 1:49 PM CDT Ron Tripathi MD [facility] POCT RH LABORATORY POC [facility] Lab [address] [facility] Lab (1st floor, no room number) [place] [address] * Surgical Pathology Exam (03/08/2024 1:26 PM CDT) Case Report Surgical Pathology Report ? Case: [id number] ? Authorizing Provider: ??Eileen Earl MD ?Collected: ? 03/08/2024 01:26 PM ? Ordering Location: ? [facility] ?Received: ?03/08/2024 02:01 PM ? [facility] ? Pathologist: ? Jae Cardona MD ? Specimen: ?Rectum, Rectum polyp ? 03/09/2024 10:13 AM [facility] LABORATORY Final Diagnosis Rectum, polypectomy: --Hyperplastic polyp. 03/09/2024 10:13 AM [facility] LABORATORY Clinical Information Procedure: Colonoscopy with polypectomy by cold biopsy forceps Pre-op Diagnosis: Anemia, unspecified type [D64.9] Post-op Diagnosis: D64.9 - Anemia, unspecified type [ICD-10-CM] 03/09/2024 10:13 AM [facility] LABORATORY Gross Description A(1). Rectum, Rectum polyp: The specimen is received in formalin, labeled with the patient's name, medical record number and other identifying information and designated ? rectum polyp? . It consists of 2 english soft tissue fragments ranging from 0.1-0.4 cm. Entirely submitted in one cassette. MARY Gates(ASCP)CM 03/08/2024 2:57 PM 03/09/2024 10:13 AM [facility] LABORATORY Microscopic Description Microscopic examination was performed. 03/09/2024 10:13 AM [facility] LABORATORY Performing Labs The technical component of this testing was completed at [facility]. Stain controls for all stains resulted within this report have been reviewed and show appropriate reactivity. 03/09/2024 10:13 AM [facility] LABORATORY Case Images 03/09/2024 10:13 AM [facility] LABORATORY Polyp RECTUM PART / Unknown 03/08/2024 1:26 PM CDT 03/08/2024 2:01 PM CDT Eileen DEAN - DAVID VALENCIA LABORATORY [facility] Lab [address] Lab (1st floor, no room number) [place] [address], [facility] * COLONOSCOPY (03/08/2024 1:04 PM CDT) [facility] COLONOSCOPY [facility] Patient Name: Herminio Victor ? [...] continuously. The ?Olympus Adult Colonoscope, Model # [id number], ?Censitrac # [id number] was introduced through the ?anus and advanced [...] Note Initiated On: 03/08/2024 1:04 PM MRN: ?[id number] Procedure Date: ? 03/08/2024 1:04:50 PM Scope Withdrawal Time: 0 hours 11 minutes 55 seconds Total Procedure Duration: 0 hours 17 minutes 23 seconds Estimated Blood Loss: ? Scope In: 1:12:27 PM Scope Out: 1:29:50 PM RADIOLOGY RESULTS 03/08/2024 1:04 PM CDT Eileen Earl MD PROCEDURES RADIOLOGY RESULTS * (ABNORMAL) Glucose by meter (03/08/2024 11:35 AM CDT) GLUCOSE BY METER POCT 112(H) 70 - 99 mg/dL 03/08/2024 11:41 AM CDT LABORATORY POC Blood, Capillary BLOOD SPECIMEN / Unknown 03/08/2024 11:35 AM CDT 03/08/2024 11:41 AM CDT Ronkaykay DEAN - DAVID POCT RH LABORATORY [facility] [address] Lab (1st floor, no room number) [address] * (ABNORMAL) Glucose by meter (03/08/2024 11:11 AM CDT) GLUCOSE BY METER POCT 65(L) 70 - 99 mg/dL 03/08/2024 11:17 AM CDT RH LABORATORY POC Blood, Capillary BLOOD SPECIMEN / Unknown 03/08/2024 11:11 AM CDT 03/08/2024 11:17 AM CDT Ron DEAN - DAVID POCT Performing Organization Address City/[facility]/ZIP Co de Phone Number LABORATORY [facility] [address] Lab (1st floor, no room number) [address] * CONDITIONAL Transfuse red blood cells (unit) 1; No special requirements (03/08/2024 10:44 AM CDT) Eileen Earl MD BLOOD TRANSFUSION ORDERABLES * Glucose by meter (03/08/2024 8:50 AM CDT) GLUCOSE BY METER POCT 85 70 - 99 mg/dL 03/08/2024 8:56 AM CDT RH LABORATORY POC Blood, Capillary BLOOD SPECIMEN / Unknown 03/08/2024 8:50 AM CDT 03/08/2024 8:56 AM CDT Ron DEAN - DAVID POCT LABORATORY [facility] [address] Lab (1st floor, no room number) [address] * CONDITIONAL Prepare red blood cells (unit) (03/08/2024 7:50 AM CDT) Blood Component Type Red Blood Cells RH BLOOD BANK Product Code [id number] RH BLOO D BANK Unit Status Transfused RH BLOO D BANK Unit Number [id number] RH B LOOD BANK CROSSMATCH Compatible RH BLOOD BANK CODING SYSTEM [id number] RH BLO OD BANK ISSUE DATE AND TIME [id number] RH BLOOD BANK UNIT ABO/RH O+ RH BLOOD BANK UNIT TYPE ISBT 5100 RH BL OOD BANK 03/08/2024 7:50 AM CDT Eileen Earl MD BLOOD BANK PRODUCT ORDERABLES RH BLOOD BANK [address] [place] [address], [facility] * (ABNORMAL) Renal panel (03/08/2024 6:25 AM CDT) Sodium 128(L) 135 - 145 mmol/L 03/08/2024 7:18 AM CDT RH LABORATORY Comment:Reference intervals for this test were updated on 07/05/2023 to more accurately reflect our healthy population. There may be differences in the flagging of prior results with similar values performed with this method. Interpretation of those prior results can be made in the context of the updated reference intervals. Potassium 4.7 3.4 - 5.3 mmol/L 03/08/2024 7:18 AM CDT LABORATORY Chloride 89(L) 98 - 107 mmol/L 03/08/2024 7:18 AM CDT LABORATORY Carbon Dioxide (CO2) 26 22 - 29 mmol/L 03/08/2024 7:18 AM CDT LABORATORY Anion Gap 13 7 - 15 mmol/L 03/08/2024 7:18 AM CDT LABORATORY Glucose 107(H) 70 - 99 mg/dL 03/08/2024 7:18 AM CDT LABORATORY Urea Nitrogen 30.2(H) 8.0 - 23.0 mg/dL 03/08/2024 7:18 AM CDT LABORATORY Creatinine 5.58(H) 0.67 - 1.17 mg/dL 03/08/2024 7:18 AM CDT LABORATORY GFR Estimate 11(L) >60 mL/min/1. 73m2 03/08/2024 7:18 AM CDT LABORATORY Calcium 7.2(L) 8.8 - 10.2 mg/dL 03/08/2024 7:18 AM CDT RH LABORATORY Albumin 2.8(L) 3.5 - 5.2 g/dL 03/08/2024 7:18 AM CDT RH LABORATORY Phosphorus 3.9 2.5 - 4.5 mg/dL 03/08/2024 7:18 AM CDT RH LABORATORY Blood STRUCTURE OF RIGHT UPPER LIMB / Unknown Venipuncture / Unknown 03/08/2024 6:25 AM CDT 03/08/2024 6:39 AM CDT Eileen Earl MD LAB - BLOOD ORDERA BLES LABORATORY [facility] Lab [address] Lab (1st floor, no room number) [address] * (ABNORMAL) INR (03/08/2024 6:25 AM CDT) INR 1.18(H) 0.85 - 1.15 03/08/2024 7:03 AM CDT RH LABORATORY Blood STRUCTURE OF RIGHT UPPER LIMB / Unknown Venipuncture / Unknown 03/08/2024 6:25 AM CDT 03/08/2024 6:39 AM CDT Eileen Earl MD LAB - BLOOD ORDERA BLES LABORATORY [facility] Lab [address] Lab (1st floor, no room number) [address] * (ABNORMAL) Hemoglobin (03/08/2024 6:25 AM CDT) Hemoglobin 6.7(LL) 13.3 - 17.7 g/dL 03/08/2024 7:01 AM CDT RH LABORATORY Blood STRUCTURE OF RIGHT UPPER LIMB / Unknown Venipuncture / Unknown 03/08/2024 6:25 AM CDT 03/08/2024 6:39 AM CDT Antonino Cheek MD LAB - BLOOD ORDERABL ES Performing Organization Address [facility]/ZIP Co de Phone Number [facility] [address] Lab (1st floor, no room number) [place] [phone] [place] [address] * (ABNORMAL) Glucose by meter (03/08/2024 6:00 AM CDT) GLUCOSE BY METER POCT 111(H) 70 - 99 mg/dL 03/08/2024 6:07 AM CDT RH LABORATORY POC Blood, Capillary BLOOD SPECIMEN / Unknown 03/08/2024 6:00 AM CDT 03/08/2024 6:07 AM CDT Ron Tripathi MD LAB - BEAKER POCT Performing Organization Address [facility]/ZIP Co de Phone Number LABORATORY [facility] [address] Lab (1st floor, no room number) [place] [phone] [place] [address] * Glucose by meter (03/08/2024 3:08 AM CDT) GLUCOSE BY METER POCT 90 70 - 99 mg/dL 03/08/2024 3:15 AM CDT LABORATORY POC Blood, Capillary BLOOD SPECIMEN / Unknown 03/08/2024 3:08 AM CDT 03/08/2024 3:15 AM CDT Ron DEAN - BEXIANG POCT Performing Organization Address [facility]/ZIP Co de Phone Number LABORATORY [facility] Lab [address] Lab (1st floor, no room number) [place] [phone], [facility] * Glucose by meter (03/08/2024 2:01 AM CDT) GLUCOSE BY METER POCT 76 70 - 99 mg/dL 03/08/2024 2:07 AM CDT LABORATORY POC Blood, Capillary BLOOD SPECIMEN / Unknown 03/08/2024 2:01 AM CDT 03/08/2024 2:07 AM CDT Ron Tripathi MD LAB - BEAKER POCT RH LABORATORY POC [facility] Lab [address] Lab (1st floor, no room number) [place] [address] * (ABNORMAL) Hemoglobin (03/08/2024 1:12 AM CDT) Hemoglobin 7.6(L) 13.3 - 17.7 g/dL 03/08/2024 1:33 AM CDT RH LABORATORY Blood STRUCTURE OF LEFT HAND / Unknown Venipuncture / Unknown 03/08/2024 1:12 AM CDT 03/08/2024 1:30 AM CDT Antonino Cheek MD LAB - BLOOD ORDERABL ES Performing Organization Address City/[facility]/ZIP Co de Phone Number LABORATORY [facility] [address] Lab (1st floor, no room number) [place] [phone] * US Upper Extremity Venous Duplex Right [...] US UPPER EXTREMITY VENOUS DUPLEX RIGHT LOCATION: [facility] DATE: 03/07/2024 INDICATION: Swelling, looking for DVT [...] US UPPER EXTREMITY VENOUS DUPLEX RIGHT LOCATION: [facility] DATE: 03/07/2024 INDICATION: Swelling, looking for DVT [...] Antonino Cheek MD IMG US ORDERABLES * Glucose by meter (03/07/2024 9:31 PM CDT) GLUCOSE BY METER POCT 90 70 - 99 mg/dL 03/07/2024 9:38 PM CDT LABORATORY POC Blood, Capillary BLOOD SPECIMEN / Unknown 03/07/2024 9:31 PM CDT 03/07/2024 9:38 PM CDT Ron DEAN - [facility] POCT LABORATORY [facility] [address] Lab (1st floor, no room number) [place] [address] * (ABNORMAL) Hemoglobin (03/07/2024 6:58 PM CDT) Hemoglobin 8.6(L) 13.3 - 17.7 g/dL 03/07/2024 8:44 PM CDT LABORATORY Blood STRUCTURE OF RIGHT HAND / Unknown Venipuncture / Unknown 03/07/2024 6:58 PM CDT 03/07/2024 7:06 PM CDT Antonino Cheek MD LAB - BLOOD ORDERABL ES Performing Organization Address City/[facility]/ZIP Co de Phone Number [facility] Lab [address] Lab (1st floor, no room number) [place] [address], [facility] * Glucose by meter (03/07/2024 6:56 PM CDT) GLUCOSE BY METER POCT 86 70 - 99 mg/dL 03/07/2024 7:03 PM CDT RH LABORATORY POC Blood, Capillary BLOOD SPECIMEN / Unknown 03/07/2024 6:56 PM CDT 03/07/2024 7:03 PM CDT Ron DEAN - BEAKER POCT Performing Organization Address [facility]/ZIP Co de Phone Number [facility] Lab [address] Lab (1st floor, no room number) [place] [address], [facility] * Glucose by meter (03/07/2024 5:03 PM CDT) GLUCOSE BY METER POCT 79 70 - 99 mg/dL 03/07/2024 5:10 PM CDT LABORATORY POC Blood, Capillary BLOOD SPECIMEN / Unknown 03/07/2024 5:03 PM CDT 03/07/2024 5:10 PM CDT Ron DEAN - BEAKER POCT Performing Organization Address City/[facility]/ZIP Co de Phone Number [facility] Lab [address] Lab (1st floor, no room number) [place] [address], [facility] * Single Lumen Midline Placement (03/07/2024 1:34 PM CDT) Narrative Patricio Bocanegra RN - 03/07/2024 1:34 PM CDT Patricio Bocanegra RN ? 03/07/2024 ??1:41 PM [facility] Single Lumen Midline Placement Date/Time: 03/07/2024 1:34 [...] procedure a time out was called ?? [place] Protocol: the Joint Commission [place] Protocol was followed ?? Preparation: Patient was [...] size: 4 Fr Brand: Bard Lot [id number]: [id number] Placement method: venipuncture, MST and ultrasound Number [...] Cheek MD PROCEDURE/MINOR SURG ICAL ORDERABLES * (ABNORMAL) Glucose by meter (03/07/2024 11:30 AM CDT) GLUCOSE BY METER POCT 130(H) 70 - 99 mg/dL 03/07/2024 11:37 AM CDT LABORATORY POC Blood, Capillary BLOOD SPECIMEN / Unknown 03/07/2024 11:30 AM CDT 03/07/2024 11:37 AM CDT Ron Tripathi MD LAB - BEAKER POCT LABORATORY [facility] Lab [address] Lab (1st floor, no room number) [address] [place] [address] * Glucose by meter (03/07/2024 8:49 AM CDT) GLUCOSE BY METER POCT 77 70 - 99 mg/dL 03/07/2024 8:56 AM CDT LABORATORY POC Blood, Capillary BLOOD SPECIMEN / Unknown 03/07/2024 8:49 AM CDT 03/07/2024 8:56 AM CDT Ron Tripathi MD LAB - BEAKER POCT Performing Organization Address [facility]/ZIP Co de Phone Number LABORATORY [facility] Lab [address] Lab (1st floor, no room number) [address] * (ABNORMAL) Renal panel (03/07/2024 6:21 AM CDT) Sodium 119(LL) 135 - 145 mmol/L 03/07/2024 7:43 AM CDT RH LABORATORY Comment:Reference intervals for this test were updated on 07/05/2023 to more accurately reflect our healthy population. There may be differences in the flagging of prior results with similar values performed with this method. Interpretation of those prior results can be made in the context of the updated reference intervals. Potassium 5.5(H) 3.4 - 5.3 mmol/L 03/07/2024 7:43 AM CDT LABORATORY Chloride 78(L) 98 - 107 mmol/L 03/07/2024 7:43 AM CDT LABORATORY Carbon Dioxide (CO2) 25 22 - 29 mmol/L 03/07/2024 7:43 AM CDT LABORATORY Anion Gap 16(H) 7 - 15 mmol/L 03/07/2024 7:43 AM CDT LABORATORY Glucose 92 70 - 99 mg/dL 03/07/2024 7:43 AM CDT LABORATORY Urea Nitrogen 55.9(H) 8.0 - 23.0 mg/dL 03/07/2024 7:43 AM CDT LABORATORY Creatinine 7.68(H) 0.67 - 1.17 mg/dL 03/07/2024 7:43 AM CDT LABORATORY GFR Estimate 7(L) >60 mL/min/1. 73m2 03/07/2024 7:43 AM CDT LABORATORY Calcium 7.3(L) 8.8 - 10.2 mg/dL 03/07/2024 7:43 AM CDT LABORATORY Albumin 2.8(L) 3.5 - 5.2 g/dL 03/07/2024 7:43 AM CDT LABORATORY Phosphorus 5.7(H) 2.5 - 4.5 mg/dL 03/07/2024 7:43 AM CDT LABORATORY Blood BLOOD SPECIMEN / Unknown Venipuncture / Unknown 03/07/2024 6:21 AM CDT 03/07/2024 7:06 AM CDT Eileen Earl MD LAB - BLOOD ORDERA BLES LABORATORY [facility] Lab [address] [facility] Lab (1st floor, no room number) [place] [address], [facility] * (ABNORMAL) INR (03/07/2024 6:21 AM CDT) INR 1.28(H) 0.85 - 1.15 03/07/2024 7:17 AM CDT LABORATORY Blood BLOOD SPECIMEN / Unknown Venipuncture / Unknown 03/07/2024 6:21 AM CDT 03/07/2024 7:06 AM CDT Eileen Earl MD LAB - BLOOD ORDERA BLES LABORATORY [facility] [address] Lab (1st floor, no room number) [place] [phone] [place] [address] * (ABNORMAL) Hemoglobin (03/07/2024 6:21 AM CDT) Hemoglobin 7.8(L) 13.3 - 17.7 g/dL 03/07/2024 7:11 AM CDT RH LABORATORY Blood BLOOD SPECIMEN / Unknown Venipuncture / Unknown 03/07/2024 6:21 AM CDT 03/07/2024 7:06 AM CDT Eileen Earl MD LAB - BLOOD ORDERA BLES Performing Organization Address City/[facility]/ZIP Co de Phone Number LABORATORY [facility] [address] Lab (1st floor, no room number) [place] [phone] [place] [address] * Glucose by meter (03/07/2024 6:19 AM CDT) GLUCOSE BY METER POCT 98 70 - 99 mg/dL 03/07/2024 6:26 AM CDT LABORATORY POC Blood, Capillary BLOOD SPECIMEN / Unknown 03/07/2024 6:19 AM CDT 03/07/2024 6:26 AM CDT Ron Tripathi MD LAB - BEAKER POCT LABORATORY POC [facility] [address] Lab (1st floor, no room number) [place] [phone] * Glucose by meter (03/07/2024 4:05 AM CDT) GLUCOSE BY METER POCT 78 70 - 99 mg/dL 03/07/2024 4:11 AM CDT RH LABORATORY POC Blood, Capillary BLOOD SPECIMEN / Unknown 03/07/2024 4:05 AM CDT 03/07/2024 4:11 AM CDT Ron Tripathi MD LAB - BEAKER POCT LABORATORY [facility] Lab [address] Lab (1st floor, no room number) [place] [address] * (ABNORMAL) Hemoglobin (03/07/2024 1:04 AM CDT) Hemoglobin 7.6(L) 13.3 - 17.7 g/dL 03/07/2024 1:17 AM CDT LABORATORY Blood STRUCTURE OF LEFT HAND / Unknown Venipuncture / Unknown 03/07/2024 1:04 AM CDT 03/07/2024 1:14 AM CDT Eileen Earl MD LAB - BLOOD ORDERA BLES Performing Organization Address City/[facility]/ZIP Co de Phone Number [facility] Lab [address] Lab (1st floor, no room number) [place] [address] * (ABNORMAL) Glucose by meter (03/07/2024 12:40 AM CDT) GLUCOSE BY METER POCT 116(H) 70 - 99 mg/dL 03/07/2024 12:48 AM CDT LABORATORY POC Blood, Capillary BLOOD SPECIMEN / Unknown 03/07/2024 12:40 AM CDT 03/07/2024 12:48 AM CDT Ron DEAN - BEXIANG POCT Performing Organization Address City/[facility]/ZIP Co de Phone Number LABORATORY [facility] Lab [address] Lab (1st floor, no room number) [place] [phone] [place] [address] * (ABNORMAL) Glucose by meter (03/06/2024 9:36 PM CDT) GLUCOSE BY METER POCT 112(H) 70 - 99 mg/dL 03/06/2024 9:44 PM CDT LABORATORY POC Blood, Capillary BLOOD SPECIMEN / Unknown 03/06/2024 9:36 PM CDT 03/06/2024 9:44 PM CDT Narrative Authorizing Provider Result Lauren DEAN - BEAKER POCT LABORATORY POC [facility] [address] Lab (1st floor, no room number) [place] [phone] [place] [address] * Extra Serum Separator Tube (SST) (03/06/2024 7:55 PM CDT) Hold Specimen JIC 03/06/2024 9:03 PM CDT LABORATORY Blood BLOOD SPECIMEN / Unknown Venipuncture / Unknown 03/06/2024 7:55 PM CDT 03/06/2024 7:55 PM CDT Narrative Authorizing Provider Result Lauren Tripathi MD LAB - BLOOD ORDERABL ES Performing Organization Address [facility]/ZIP Co de Phone Number [facility] [address] Lab (1st floor, no room number) [place] [phone] [place] [address] * (ABNORMAL) Glucose by meter (03/06/2024 6:37 PM CDT) GLUCOSE BY METER POCT 112(H) 70 - 99 mg/dL 03/06/2024 6:45 PM CDT LABORATORY POC Blood, Capillary BLOOD SPECIMEN / Unknown 03/06/2024 6:37 PM CDT 03/06/2024 6:45 PM CDT Narrative Authorizing Provider Result Lauren DEAN - BEAKER POCT Performing Organization Address City/[facility]/ZIP Co de Phone Number LABORATORY [facility] Lab [address] Lab (1st floor, no room number) [place] [phone] [place] [address] * (ABNORMAL) CBC with platelets and differential (03/06/2024 4:28 PM CDT) WBC Count 7.4 4.0 - 11.0 10e3/uL 03/06/2024 4:37 PM CDT RH LABORATORY RBC Count 2.51(L) 4.40 - 5.90 10e6/uL 03/06/2024 4:37 PM CDT RH LABORATORY Hemoglobin 7.4(L) 13.3 - 17.7 g/dL 03/06/2024 4:37 PM CDT RH LABORATORY Hematocrit 22.0(L) 40.0 - 53.0 % 03/06/2024 4:37 PM CDT RH LABORATORY MCV 88 78 - 100 fL 03/06/2024 4:37 PM CDT RH LABORATORY MCH 29.5 26.5 - 33.0 pg 03/06/2024 4:37 PM CDT [facility] MCHC 33.6 31.5 - 36.5 g/dL 03/06/2024 4:37 PM CDT [facility] RDW 15.9(H) 10.0 - 15.0 % 03/06/2024 4:37 PM CDT [facility] Platelet Count 145(L) 150 - 450 10e3/uL 03/06/2024 4:37 PM CDT [facility] % Neutrophils 80 % 03/06/2024 4:37 PM CDT [facility] % Lymphocytes 8 % 03/06/2024 4:37 PM CDT [facility] % Monocytes 8 % 03/06/2024 4:37 PM CDT [facility] % Eosinophils 3 % 03/06/2024 4:37 PM CDT [facility] % Basophils 0 % 03/06/2024 4:37 PM CDT [facility] % Immature Granulocytes 1 % 03/06/2024 4:37 PM CDT [facility] NRBCs per 100 WBC 0 <1 /100 024 4:37 PM CDT [facility] Absolute Neutrophils 5.9 1.6 - 8.3 10e3/uL 03/06/2024 4:37 PM CDT [facility] Absolute Lymphocytes 0.6(L) 0.8 - 5.3 10e3/uL 03/06/2024 4:37 PM CDT [facility] Absolute Monocytes 0.6 0.0 - 1.3 10e3/uL 03/06/2024 4:37 PM CDT [facility] Absolute Eosinophils 0.2 0.0 - 0.7 10e3/uL 03/06/2024 4:37 PM CDT [facility] Absolute Basophils 0.0 0.0 - 0.2 10e3/uL 03/06/2024 4:37 PM CDT [facility] Absolute Immature Granulocytes 0.1 <=0.4 10e3/uL 03/06/2024 4:37 PM CDT [facility] Absolute NRBCs 0.0 10e3/uL 03/06/2024 4:37 PM CDT [facility] Blood STRUCTURE OF LEFT UPPER LIMB / Unknown Venipuncture / Unknown 03/06/2024 4:28 PM CDT 03/06/2024 4:33 PM CDT Antonino Cheek MD LAB - BLOOD ORDERABL ES Performing Organization Address City/[facility]/ZIP Co de Phone Number [facility] Lab [address] Lab (1st floor, no room number) [address] [place] [address] * (ABNORMAL) Glucose (03/06/2024 4:28 PM CDT) Glucose 196(H) 70 - 99 mg/dL 03/06/2024 4:54 PM CDT RH LABORATORY Blood STRUCTURE OF LEFT UPPER LIMB / Unknown Venipuncture / Unknown 03/06/2024 4:28 PM CDT 03/06/2024 4:32 PM CDT Antonino Cheek MD LAB - BLOOD ORDERABL ES Performing Organization Address City/[facility]/ZIP Co de Phone Number [facility] Lab [address] Lab (1st floor, no room number) [place] [phone] [place] [address] * (ABNORMAL) Basic metabolic panel (03/06/2024 4:28 PM CDT) Sodium 121(L) 135 - 145 mmol/L 03/06/2024 [...] - 107 mmol/L 03/06/2024 4:54 PM CDT LABORATORY Carbon Dioxide (CO2) 24 22 - 29 mmol/L 03/06/2024 4:54 PM CDT LABORATORY Anion Gap 15 7 - 15 mmol/L 03/06/2024 4:54 PM CDT LABORATORY Urea Nitrogen 50.9(H) 8.0 - 23.0 mg/dL 03/06/2024 4:54 PM CDT LABORATORY Creatinine 6.65(H) 0.67 - 1.17 mg/dL 03/06/2024 4:54 PM CDT LABORATORY GFR Estimate 9(L) >60 mL/min/1. 73m2 03/06/2024 4:54 PM CDT LABORATORY Calcium 7.1(L) 8.8 - 10.2 mg/dL 03/06/2024 4:54 PM CDT LABORATORY Glucose 196(H) 70 - 99 mg/dL 03/06/2024 4:54 PM CDT LABORATORY Blood STRUCTURE OF LEFT UPPER LIMB / Unknown Venipuncture / Unknown 03/06/2024 4:28 PM CDT 03/06/2024 4:32 PM CDT Antonino Cheek MD LAB - BLOOD ORDERABL ES LABORATORY [facility] Lab [address] [facility] Lab (1st floor, no room number) [place] [address], [facility] * (ABNORMAL) Hemoglobin (03/06/2024 4:28 PM CDT) Hemoglobin 7.4(L) 13.3 - 17.7 g/dL 03/06/2024 4:47 PM CDT LABORATORY Blood STRUCTURE OF LEFT UPPER LIMB / Unknown Venipuncture / Unknown 03/06/2024 4:28 PM CDT 03/06/2024 4:33 PM CDT Eileen Earl MD LAB - BLOOD KIMNegrita CARTER LABORATORY [facility] Lab [address] Lab (1st floor, no room number) [place] [id number] [place] [address] * (ABNORMAL) Glucose by meter (03/06/2024 4:26 PM CDT) GLUCOSE BY METER POCT 196(H) 70 - 99 mg/dL 03/06/2024 4:33 PM CDT RH LABORATORY POC Blood, Capillary BLOOD SPECIMEN / Unknown 03/06/2024 4:26 PM CDT 03/06/2024 4:33 PM CDT Ron Tripathi MD LAB - BEAKER POCT Performing Organization Address City/[facility]/ZIP Co de Phone Number LABORATORY POC [facility] Lab [address] Lab (1st floor, no room number) [place] [address] [place] [address] * (ABNORMAL) Glucose by meter (03/06/2024 4:17 PM CDT) GLUCOSE BY METER POCT 38(LL) 70 - 99 mg/dL 03/06/2024 4:24 PM CDT RH LABORATORY POC Comment:/LINDA Notified Blood, Capillary BLOOD SPECIMEN / Unknown 03/06/2024 4:17 PM CDT 03/06/2024 4:24 PM CDT Ron Tripathi MD LAB - BEAKER POCT LABORATORY POC [facility] Lab [address] Lab (1st floor, no room number) [address] [place] [address] * (ABNORMAL) Glucose by meter (03/06/2024 4:10 PM CDT) GLUCOSE BY METER POCT 47(LL) 70 - 99 mg/dL 03/19/2024 8:02 AM CDT RH LABORATORY POC Comment:/RN Notified Blood, Capillary BLOOD SPECIMEN / Unknown 03/06/2024 4:10 PM CDT 03/19/2024 8:02 AM CDT Narrative Authorizing Provider Result Lauren DEAN - BEAKER POCT LABORATORY [facility] Lab [address] Lab (1st floor, no room number) [place] [address] * (ABNORMAL) Glucose by meter (03/06/2024 3:18 PM CDT) GLUCOSE BY METER POCT 64(L) 70 - 99 mg/dL 03/06/2024 3:26 PM CDT LABORATORY POC Blood, Capillary BLOOD SPECIMEN / Unknown 03/06/2024 3:18 PM CDT 03/06/2024 3:26 PM CDT Ron DEAN - BEXIANG POCT Performing Organization Address [facility]/ZIP Co de Phone Number LABORATORY [facility] Lab [address] Lab (1st floor, no room number) [place] [address], [facility] * (ABNORMAL) Glucose by meter (03/06/2024 3:03 PM CDT) GLUCOSE BY METER POCT 63(L) 70 - 99 mg/dL 03/06/2024 3:11 PM CDT LABORATORY POC Blood, Capillary BLOOD SPECIMEN / Unknown 03/06/2024 3:03 PM CDT 03/06/2024 3:11 PM CDT Narrative Authorizing Provider Result Lauren Tripathi MD LAB - BEAKER POCT Performing Organization Address City/[facility]/ZIP Co de Phone Number LABORATORY [facility] Lab [address] Lab (1st floor, no room number) [place] [address], [facility] * (ABNORMAL) Hemoglobin - Pre-Op (03/06/2024 1:23 PM CDT) Hemoglobin 7.6(L) 13.3 - 17.7 g/dL 03/06/2024 1:39 PM CDT LABORATORY Blood STRUCTURE OF RIGHT UPPER LIMB / Unknown Venipuncture / Unknown 03/06/2024 1:23 PM CDT 03/06/2024 1:34 PM CDT Antonino Cheek MD LAB - BLOOD ORDERABL ES LABORATORY [facility] Lab [address] [facility] Lab (1st floor, no room number) [place] [address] * UPPER GI ENDOSCOPY (03/06/2024 1:21 PM CDT) Pathologist [facility] Upper GI Endoscopy [facility] Patient Name: Herminio Navarro Kayleigh ? Procedure [...] ?Olympus Gastroscope, Model # GIF-H190, Censitrac # [id number] was introduced through the mouth, and ?advanced [...] Note Initiated On: 03/06/2024 1:21 PM MRN: ?[id number] Procedure Date: ? 03/06/2024 1:21:29 PM Total Procedure Duration: 0 hours 5 minutes 6 seconds Estimated Blood Loss: ? Scope In: 2:15:42 PM Scope Out: 2:20:48 PM RADIOLOGY RESULTS 03/06/2024 1:21 PM CDT Eileen Earl MD PROCEDURES RADIOLOGY RESULTS * Glucose by meter (03/06/2024 12:26 PM CDT) GLUCOSE BY METER POCT 74 70 - 99 mg/dL 03/06/2024 12:33 PM CDT RH LABORATORY POC Blood, Capillary BLOOD SPECIMEN / Unknown 03/06/2024 12:26 PM CDT 03/06/2024 12:33 PM CDT Ron Tripathi MD LAB - BEAKER POCT RH LABORATORY [facility] Lab [address] Lab (1st floor, no room number) [place] [phone] [place] [address] * Transfuse red blood cells (unit) (03/06/2024 12:05 PM CDT) Antonino Cheek MD BLOOD TRANSFUSION OR DERABLES * Transfuse red blood cells (unit), 1 Units (03/06/2024 12:05 PM CDT) Antonino Cheek MD BLOOD TRANSFUSION OR DERABLES * Glucose by meter (03/06/2024 12:01 PM CDT) GLUCOSE BY METER POCT 81 70 - 99 mg/dL 03/06/2024 12:08 PM CDT RH LABORATORY POC Blood, Capillary BLOOD SPECIMEN / Unknown 03/06/2024 12:01 PM CDT 03/06/2024 12:08 PM CDT Ron DEAN - BEAKER POCT Performing Organization Address City/[facility]/ZIP Co de Phone Number LABORATORY [facility] [address] Lab (1st floor, no room number) [place] [phone] [place] [address] * Adult Type and Screen (03/06/2024 8:53 AM CDT) ABO/RH(D) O POS 03/06/2024 7:57 AM CDT RH BLOOD BANK Antibody Screen Negative Negative 03/06/2024 7:57 AM CDT RH BLOOD BANK SPECIMEN EXPIRATION DATE [id number] 03/06/2024 7:57 AM CDT RH BLOOD BANK Blood STRUCTURE OF RIGHT HAND / Unknown Venipuncture / Unknown 03/06/2024 8:53 AM CDT 03/06/2024 9:00 AM CDT Antonino Cheek MD LAB - BLOOD BANK SHANNON T ORDER RH BLOOD BANK [address] [place] [address] * Glucose by meter (03/06/2024 7:57 AM CDT) GLUCOSE BY METER POCT 87 70 - 99 mg/dL 03/06/2024 8:04 AM CDT LABORATORY POC Blood, Capillary BLOOD SPECIMEN / Unknown 03/06/2024 7:57 AM CDT 03/06/2024 8:04 AM CDT Ron Tripathi MD LAB - BEAKER POCT Performing Organization Address City/[facility]/ZIP Co de Phone Number LABORATORY POC [facility] Lab [address] [facility] Lab (1st floor, no room number) [place] [address] * Prepare red blood cells (unit) (03/06/2024 7:50 AM CDT) Blood Component Type Red Blood Cells RH BLOOD BANK Product Code [id number] RH BLOO D BANK Unit Status Transfused RH BLOO D BANK Unit Number [id number] RH B LOOD BANK CROSSMATCH Compatible RH BLOOD BANK CODING SYSTEM [id number] RH BLO OD BANK ISSUE DATE AND TIME [id number] RH BLOOD BANK UNIT ABO/RH O+ RH BLOOD BANK UNIT TYPE ISBT 5100 RH BL OOD BANK 03/06/2024 7:50 AM CDT Antonino Cheek MD BLOOD BANK PRODUCT O RDERABLES Performing Organization Address City/[facility]/ZIP Co de Phone Number RH BLOOD BANK [address] [place] [address] * (ABNORMAL) Renal panel (03/06/2024 6:54 AM CDT) Sodium 124(L) 135 - 145 mmol/L 03/06/2024 7:32 AM CDT LABORATORY Comment:Reference intervals for this test were updated on 07/05/2023 to more accurately reflect our healthy population. There may be differences in the flagging of prior results with similar values performed with this method. Interpretation of those prior results can be made in the context of the updated reference intervals. Potassium 4.5 3.4 - 5.3 mmol/L 03/06/2024 7:32 AM CDT LABORATORY Chloride 83(L) 98 - 107 mmol/L 03/06/2024 7:32 AM CDT LABORATORY Carbon Dioxide (CO2) 27 22 - 29 mmol/L 03/06/2024 7:32 AM CDT LABORATORY Anion Gap 14 7 - 15 mmol/L 03/06/2024 7:32 AM CDT LABORATORY Glucose 89 70 - 99 mg/dL 03/06/2024 7:32 AM CDT LABORATORY Urea Nitrogen 47.9(H) 8.0 - 23.0 mg/dL 03/06/2024 7:32 AM CDT LABORATORY Creatinine 5.98(H) 0.67 - 1.17 mg/dL 03/06/2024 7:32 AM CDT LABORATORY GFR Estimate 10(L) >60 mL/min/1. 73m2 03/06/2024 7:32 AM CDT LABORATORY Calcium 7.6(L) 8.8 - 10.2 mg/dL 03/06/2024 7:32 AM CDT LABORATORY Albumin 2.6(L) 3.5 - 5.2 g/dL 03/06/2024 7:32 AM CDT LABORATORY Phosphorus 4.8(H) 2.5 - 4.5 mg/dL 03/06/2024 7:32 AM CDT LABORATORY Blood STRUCTURE OF RIGHT HAND / Unknown Venipuncture / Unknown 03/06/2024 6:54 AM CDT 03/06/2024 7:00 AM CDT Eileen Earl MD LAB - BLOOD ORDERA BLES LABORATORY [facility] Lab [address] [facility] Lab (1st floor, no room number) [place] [address] * (ABNORMAL) Hemoglobin (03/06/2024 6:54 AM CDT) Hemoglobin 7.0(L) 13.3 - 17.7 g/dL 03/06/2024 7:04 AM CDT RH LABORATORY Blood STRUCTURE OF RIGHT HAND / Unknown Venipuncture / Unknown 03/06/2024 6:54 AM CDT 03/06/2024 7:00 AM CDT Antonino Cheek MD LAB - BLOOD ORDERABL ES [facility] Lab [address] Lab (1st floor, no room number) [address] * (ABNORMAL) INR (03/06/2024 6:54 AM CDT) INR 1.51(H) 0.85 - 1.15 03/06/2024 7:19 AM CDT RH LABORATORY Blood STRUCTURE OF RIGHT HAND / Unknown Venipuncture / Unknown 03/06/2024 6:54 AM CDT 03/06/2024 7:00 AM CDT Eileen Earl MD LAB - BLOOD ORDERA BLES Performing Organization Address [facility]/ZIP Co de Phone Number [facility] Lab [address] Lab (1st floor, no room number) [address] [place] [address] * Glucose by meter (03/06/2024 4:05 AM CDT) GLUCOSE BY METER POCT 90 70 - 99 mg/dL 03/06/2024 4:21 AM CDT LABORATORY POC Blood, Capillary BLOOD SPECIMEN / Unknown 03/06/2024 4:05 AM CDT 03/06/2024 4:21 AM CDT Ron Tripathi MD LAB - BEAKER POCT LABORATORY POC [facility] Lab [address] Lab (1st floor, no room number) [place] [phone] [place] [address] * (ABNORMAL) Glucose by meter (03/06/2024 12:01 AM CDT) GLUCOSE BY METER POCT 101(H) 70 - 99 mg/dL 03/06/2024 12:13 AM CDT RH LABORATORY POC Blood, Capillary BLOOD SPECIMEN / Unknown 03/06/2024 12:01 AM CDT 03/06/2024 12:13 AM CDT Ron Tripathi MD LAB - BEAKER POCT LABORATORY [facility] Lab [address] Lab (1st floor, no room number) [place] [phone] [place] [address] * Glucose by meter (03/05/2024 10:01 PM CDT) GLUCOSE BY METER POCT 87 70 - 99 mg/dL 03/05/2024 10:09 PM CDT LABORATORY POC Blood, Capillary BLOOD SPECIMEN / Unknown 03/05/2024 10:01 PM CDT 03/05/2024 10:09 PM CDT Ron DEAN - BEAKER POCT LABORATORY [facility] Lab [address] Lab (1st floor, no room number) [place] [address] [place] [address] * (ABNORMAL) Hemoglobin (03/05/2024 6:53 PM CDT) Hemoglobin 8.4(L) 13.3 - 17.7 g/dL 03/05/2024 7:07 PM CDT LABORATORY Blood STRUCTURE OF LEFT HAND / Unknown Venipuncture / Unknown 03/05/2024 6:53 PM CDT 03/05/2024 7:02 PM CDT Antonino Cheek MD LAB - BLOOD ORDERABL ES Performing Organization Address City/[facility]/ZIP Co de Phone Number LABORATORY [facility] Lab [address] Lab (1st floor, no room number) [place] [address] * Glucose by meter (03/05/2024 5:47 PM CDT) [facility] GLUCOSE BY METER POCT 96 70 - 99 mg/dL 03/05/2024 5:54 PM CDT LABORATORY POC Blood, Capillary BLOOD SPECIMEN / Unknown 03/05/2024 5:47 PM CDT 03/05/2024 5:54 PM CDT Ron Tripathi MD LAB - BEAKER POCT Performing Organization Address [facility]/ZIP Co de Phone Number LABORATORY POC [facility] Lab [address] Lab (1st floor, no room number) [place] [address] * CONDITIONAL Transfuse red blood cells (unit) 1; No special requirements (03/05/2024 4:07 PM CDT) Eileen Earl MD BLOOD TRANSFUSION ORDERABLES * CONDITIONAL Prepare red blood cells (unit) (03/05/2024 12:47 PM CDT) [facility] Blood Component Type Red Blood Cells RH BLOOD BANK Product Code [id number] RH BLOO D BANK Unit Status Transfused RH BLOO D BANK Unit Number [id number] RH B LOOD BANK CROSSMATCH Compatible RH BLOOD BANK CODING SYSTEM [id number] RH BLO OD BANK ISSUE DATE AND TIME [id number] RH BLOOD BANK UNIT ABO/RH O+ RH BLOOD BANK UNIT TYPE ISBT 5100 RH BL OOD BANK 03/05/2024 12:4 7 PM CDT Ron Tripathi MD BLOOD BANK PRODUCT O RDERABLES Performing Organization Address [facility]/ZIP Co de Phone Number RH BLOOD BANK [address] [place] [address] * (ABNORMAL) Hemoglobin (03/05/2024 12:12 PM CDT) Hemoglobin 6.9(LL) 13.3 - 17.7 g/dL 03/05/2024 12:40 PM CDT LABORATORY Blood STRUCTURE OF LEFT HAND / Unknown Venipuncture / Unknown 03/05/2024 12:12 PM CDT 03/05/2024 12:21 PM CDT Antonino Cheek MD LAB - BLOOD ORDERABL ES [facility] Lab [address] Lab (1st floor, no room number) [place] [address], [facility] * (ABNORMAL) Glucose by meter (03/05/2024 12:06 PM CDT) GLUCOSE BY METER POCT 107(H) 70 - 99 mg/dL 03/05/2024 12:13 PM CDT LABORATORY POC Blood, Capillary BLOOD SPECIMEN / Unknown 03/05/2024 12:06 PM CDT 03/05/2024 12:13 PM CDT Ron DEAN - BEAKER POCT Performing Organization Address [facility]/ZIP Co de Phone Number LABORATORY [facility] Lab [address] Lab (1st floor, no room number) [place] [address], [facility] * Glucose by meter (03/05/2024 7:58 AM CDT) GLUCOSE BY METER POCT 83 70 - 99 mg/dL 03/05/2024 8:04 AM CDT LABORATORY POC Blood, Capillary BLOOD SPECIMEN / Unknown 03/05/2024 7:58 AM CDT 03/05/2024 8:04 AM CDT Ron DEAN - BEAKER POCT LABORATORY [facility] Lab [address] Lab (1st floor, no room number) [place] [id number] [place] [address] * (ABNORMAL) Hemoglobin (03/05/2024 7:35 AM CDT) Hemoglobin 7.1(L) 13.3 - 17.7 g/dL 03/05/2024 8:01 AM CDT LABORATORY Blood STRUCTURE OF LEFT HAND / Unknown Venipuncture / Unknown 03/05/2024 7:35 AM CDT 03/05/2024 7:57 AM CDT Aashish Romero DO LAB - BLOOD ORDER NADIA LABORATORY [facility] [address] Lab (1st floor, no room number) [address] [place] [address] * (ABNORMAL) INR (03/05/2024 7:35 AM CDT) Pathologist [facility] INR 2.20(H) 0.85 - 1.15 03/05/2024 8:13 AM CDT LABORATORY Blood STRUCTURE OF LEFT HAND / Unknown Venipuncture / Unknown 03/05/2024 7:35 AM CDT 03/05/2024 7:57 AM CDT Eileen Earl MD LAB - BLOOD ORDERA BLES Performing Organization Address City/[facility]/ZIP Co de Phone Number LABORATORY [facility] [address] Lab (1st floor, no room number) [place] [phone] [place] [address] * (ABNORMAL) Comprehensive metabolic panel (03/05/2024 7:35 AM CDT) Sodium 116(LL) 135 - 145 mmol/L 03/05/2024 9:14 AM CDT LABORATORY Comment: Result confirmed by repeated test. Reference intervals for this test were updated on 07/05/2023 to more accurately reflect our healthy population. There may be differences in the flagging of prior results with similar values performed with this method. Interpretation of those prior results can be made in the context of the updated reference intervals. Potassium 6.0(H) 3.4 - 5.3 mmol/L 03/05/2024 9:14 AM CDT RH LABORATORY Carbon Dioxide (CO2) 19(L) 22 - 29 mmol/L 03/05/2024 9:14 AM CDT RH LABORATORY Anion Gap 18(H) 7 - 15 mmol/L 03/05/2024 9:14 AM CDT LABORATORY Urea Nitrogen 81.7(H) 8.0 - 23.0 mg/dL 03/05/2024 9:14 AM CDT LABORATORY Creatinine 8.51(H) 0.67 - 1.17 mg/dL 03/05/2024 9:14 AM CDT RH LABORATORY GFR Estimate 7(L) >60 mL/min/1. 73m2 03/05/2024 9:14 AM CDT RH LABORATORY Calcium 7.8(L) 8.8 - 10.2 mg/dL 03/05/2024 9:14 AM CDT RH LABORATORY Chloride 79(L) 98 - 107 mmol/L 03/05/2024 9:14 AM CDT LABORATORY Glucose 88 70 - 99 mg/dL 03/05/2024 9:14 AM CDT RH LABORATORY Alkaline Phosphatase 76 40 - 150 U/L 03/05/2024 9:14 AM CDT RH LABORATORY AST 22 0 - 45 U/L 03/05/2024 9:14 AM CDT RH LABORATORY Comment:Reference intervals for this test were updated on 03/21/2023 to more accurately reflect our healthy population. There may be differences in the flagging of prior results with similar values performed with this method. Interpretation of those prior results can be made in the context of the updated reference intervals. ALT 15 0 - 70 U/L 03/05/2024 9:14 AM CDT RH LABORATORY Comment:Reference intervals for this test were updated on 03/21/2023 to more accurately reflect our healthy population. There may be differences in the flagging of prior results with similar values performed with this method. Interpretation of those prior results can be made in the context of the updated reference intervals. Protein Total 5.4(L) 6.4 - 8.3 g/dL 03/05/2024 9:14 AM CDT RH LABORATORY Albumin 2.7(L) 3.5 - 5.2 g/dL 03/05/2024 9:14 AM CDT LABORATORY Bilirubin Total 0.4 <=1.2 mg/dL 03/05/2024 9:14 AM CDT RH LABORATORY Blood STRUCTURE OF LEFT HAND / Unknown Venipuncture / Unknown 03/05/2024 7:35 AM CDT 03/05/2024 7:57 AM CDT Aashish Romero DO LAB - BLOOD ORDER NADIA RH LABORATORY [facility] Lab [address] Lab (1st floor, no room number) [place] [address] * (ABNORMAL) CBC with platelets (03/05/2024 7:35 AM CDT) WBC Count 8.6 4.0 - 11.0 10e3/uL 03/05/2024 8:01 AM CDT RH LABORATORY RBC Count 2.47(L) 4.40 - 5.90 10e6/uL 03/05/2024 8:01 AM CDT RH LABORATORY Hemoglobin 7.1(L) 13.3 - 17.7 g/dL 03/05/2024 8:01 AM CDT RH LABORATORY Hematocrit 22.2(L) 40.0 - 53.0 % 03/05/2024 8:01 AM CDT RH LABORATORY MCV 90 78 - 100 fL 03/05/2024 8:01 AM CDT RH LABORATORY MCH 28.7 26.5 - 33.0 pg 03/05/2024 8:01 AM CDT RH LABORATORY MCHC 32.0 31.5 - 36.5 g/dL 03/05/2024 8:01 AM CDT RH LABORATORY RDW 15.9(H) 10.0 - 15.0 % 03/05/2024 8:01 AM CDT RH LABORATORY Platelet Count 162 150 - 450 10e3/uL 03/05/2024 8:01 AM CDT RH LABORATORY Blood STRUCTURE OF LEFT HAND / Unknown Venipuncture / Unknown 03/05/2024 7:35 AM CDT 03/05/2024 7:57 AM CDT Aashish Romero DO LAB - BLOOD ORDER NADIA RH LABORATORY [facility] Lab [address] Lab (1st floor, no room number) [place] [phone] [place] [address] * (ABNORMAL) Glucose by meter (03/05/2024 4:09 AM CDT) GLUCOSE BY METER POCT 107(H) 70 - 99 mg/dL 03/05/2024 4:16 AM CDT RH LABORATORY POC Blood, Capillary BLOOD SPECIMEN / Unknown 03/05/2024 4:09 AM CDT 03/05/2024 4:16 AM CDT Ron DEAN - BEAKER POCT LABORATORY [facility] Lab [address] Lab (1st floor, no room number) [place] [id number] * (ABNORMAL) Glucose by meter (03/05/2024 3:22 AM CDT) GLUCOSE BY METER POCT 115(H) 70 - 99 mg/dL 03/05/2024 3:30 AM CDT RH LABORATORY POC Blood, Capillary BLOOD SPECIMEN / Unknown 03/05/2024 3:22 AM CDT 03/05/2024 3:30 AM CDT Ron HERNANDEZ POCT LABORATORY [facility] [address] Lab (1st floor, no room number) [place] [phone] [place] [address] * (ABNORMAL) Glucose by meter (03/05/2024 12:07 AM CDT) GLUCOSE BY METER POCT 118(H) 70 - 99 mg/dL 03/05/2024 12:14 AM CDT RH LABORATORY POC Blood, Capillary BLOOD SPECIMEN / Unknown 03/05/2024 12:07 AM CDT 03/05/2024 12:14 AM CDT Narrative Authorizing Provider Result Lauren Tripathi MD LAB - BEAKER POCT LABORATORY [facility] Lab [address] Lab (1st floor, no room number) [place] [phone] [place] [address] * (ABNORMAL) Glucose by meter (03/04/2024 9:37 PM CDT) GLUCOSE BY METER POCT 132(H) 70 - 99 mg/dL 03/04/2024 9:45 PM CDT RH LABORATORY POC Blood, Capillary BLOOD SPECIMEN / Unknown 03/04/2024 9:37 PM CDT 03/04/2024 9:45 PM CDT Narrative Authorizing Provider Result Lauren Tripathi MD LAB - BEXIANG POCT Performing Organization Address [facility]/ZIP Co de Phone Number LABORATORY [facility] Lab [address] Lab (1st floor, no room number) [place] [phone] [place] [address] * (ABNORMAL) Glucose by meter (03/04/2024 8:34 PM CDT) GLUCOSE BY METER POCT 122(H) 70 - 99 mg/dL 03/04/2024 8:41 PM CDT LABORATORY POC Blood, Capillary BLOOD SPECIMEN / Unknown 03/04/2024 8:34 PM CDT 03/04/2024 8:41 PM CDT Narrative Authorizing Provider Result Lauren DEAN - BEAKER POCT LABORATORY [facility] [address] Lab (1st floor, no room number) [address] [place] [address] * (ABNORMAL) Potassium (03/04/2024 6:29 PM CDT) Potassium 5.6(H) 3.4 - 5.3 mmol/L 03/04/2024 7:00 PM CDT [facility] Blood STRUCTURE OF LEFT HAND / Unknown Venipuncture / Unknown 03/04/2024 6:29 PM CDT 03/04/2024 6:37 PM CDT Job Her MD LAB - BLOOD ORDERABL ES [facility] [address] Lab (1st floor, no room number) [place] [id number] * (ABNORMAL) Hemoglobin (03/04/2024 6:29 PM CDT) Hemoglobin 7.7(L) 13.3 - 17.7 g/dL 03/04/2024 6:41 PM CDT [facility]AT[facility] Blood STRUCTURE OF LEFT HAND / Unknown Venipuncture / Unknown 03/04/2024 6:29 PM CDT 03/04/2024 6:37 PM CDT Aashish Romero DO LAB - BLOOD ORDER NADIA [facility] [address] Lab (1st floor, no room number) [place] [address], [facility] * Glucose by meter (03/04/2024 5:44 PM CDT) GLUCOSE BY METER POCT 93 70 - 99 mg/dL 03/04/2024 5:51 PM CDT LABORATORY POC Blood, Capillary BLOOD SPECIMEN / Unknown 03/04/2024 5:44 PM CDT 03/04/2024 5:51 PM CDT Ron Tripathi MD LAB - BEAKER POCT LABORATORY POC [facility] [address] Lab (1st floor, no room number) [place] [phone], [facility] * Glucose by meter (03/04/2024 3:12 PM CDT) GLUCOSE BY METER POCT 96 70 - 99 mg/dL 03/04/2024 3:19 PM CDT [facility] LABORATORY POC Blood, Capillary BLOOD SPECIMEN / Unknown 03/04/2024 3:12 PM CDT 03/04/2024 3:19 PM CDT Ron Tripathi MD LAB - BEAKER POCT Performing Organization Address City/[facility]/ZIP Co de Phone Number LABORATORY [facility] [address] Lab (1st floor, no room number) [place] [phone] [place] [address] * Glucose by meter (03/04/2024 1:46 PM CDT) GLUCOSE BY METER POCT 86 70 - 99 mg/dL 03/04/2024 1:53 PM CDT LABORATORY POC Blood, Capillary BLOOD SPECIMEN / Unknown 03/04/2024 1:46 PM CDT 03/04/2024 1:53 PM CDT Ron DEAN - BEAKER POCT Performing Organization Address [facility]/ZIP Co de Phone Number LABORATORY [facility] [address] Lab (1st floor, no room number) [place] [phone], [facility] * (ABNORMAL) Glucose by meter (03/04/2024 1:09 PM CDT) GLUCOSE BY METER POCT 67(L) 70 - 99 mg/dL 03/04/2024 1:15 PM CDT LABORATORY POC Blood, Capillary BLOOD SPECIMEN / Unknown 03/04/2024 1:09 PM CDT 03/04/2024 1:15 PM CDT Ron Tripathi MD LAB - BEAKER POCT Performing Organization Address City/[facility]/ZIP Co de Phone Number LABORATORY [facility] [address] Lab (1st floor, no room number) [place] [phone], [facility] * (ABNORMAL) Glucose by meter (03/04/2024 11:59 AM CDT) GLUCOSE BY METER POCT 69(L) 70 - 99 mg/dL 03/04/2024 12:06 PM CDT LABORATORY POC Blood, Capillary BLOOD SPECIMEN / Unknown 03/04/2024 11:59 AM CDT 03/04/2024 12:06 PM CDT Ron Tripathi MD LAB - BEAKER POCT LABORATORY [facility] [address] Lab (1st floor, no room number) [place] [phone], [facility] * Glucose by meter (03/04/2024 10:47 AM CDT) GLUCOSE BY METER POCT 74 70 - 99 mg/dL 03/04/2024 11:06 AM CDT LABORATORY POC Blood, Capillary BLOOD SPECIMEN / Unknown 03/04/2024 10:47 AM CDT 03/04/2024 11:06 AM CDT Ron DEAN - BEXIANG POCT Performing Organization Address City/[facility]/ZIP Co de Phone Number LABORATORY [facility] [address] Lab (1st floor, no room number) [place] [phone], [facility] * Glucose by meter (03/04/2024 8:58 AM CDT) GLUCOSE BY METER POCT 81 70 - 99 mg/dL 03/04/2024 9:06 AM CDT LABORATORY POC Blood, Capillary BLOOD SPECIMEN / Unknown 03/04/2024 8:58 AM CDT 03/04/2024 9:06 AM CDT Ron DEAN - BEXIANG POCT LABORATORY [facility] [address] Lab (1st floor, no room number) [place] [phone], [facility] * Glucose by meter (03/04/2024 7:03 AM CDT) GLUCOSE BY METER POCT 76 70 - 99 mg/dL 03/04/2024 7:10 AM CDT RH LABORATORY POC Blood, Capillary BLOOD SPECIMEN / Unknown 03/04/2024 7:03 AM CDT 03/04/2024 7:10 AM CDT Ron Tripathi MD LAB - [facility] POCT RH LABORATORY POC [facility] [address] Lab (1st floor, no room number) [place] [address], [facility] * (ABNORMAL) Comprehensive metabolic panel (03/04/2024 6:45 AM CDT) Sodium 125(L) 135 - 145 mmol/L 03/04/2024 8:11 AM CDT LABORATORY Comment:Reference intervals for this test were updated on 07/05/2023 to more accurately reflect our healthy population. There may be differences in the flagging of prior results with similar values performed with this method. Interpretation of those prior results can be made in the context of the updated reference intervals. Potassium 5.7(H) 3.4 - 5.3 mmol/L 03/04/2024 8:11 AM CDT LABORATORY Carbon Dioxide (CO2) 22 22 - 29 mmol/L 03/04/2024 8:11 AM CDT LABORATORY Anion Gap 16(H) 7 - 15 mmol/L 03/04/2024 8:11 AM CDT LABORATORY Urea Nitrogen 61.1(H) 8.0 - 23.0 mg/dL 03/04/2024 8:11 AM CDT LABORATORY Creatinine 7.41(H) 0.67 - 1.17 mg/dL 03/04/2024 8:11 AM CDT LABORATORY GFR Estimate 8(L) >60 mL/min/1. 73m2 03/04/2024 8:11 AM CDT LABORATORY Calcium 8.2(L) 8.8 - 10.2 mg/dL 03/04/2024 8:11 AM CDT LABORATORY Chloride 87(L) 98 - 107 mmol/L 03/04/2024 8:11 AM CDT RH LABORATORY Glucose 81 70 - 99 mg/dL 03/04/2024 8:11 AM CDT RH LABORATORY Alkaline Phosphatase 61 40 - 150 U/L 03/04/2024 8:11 AM CDT RH LABORATORY AST 28 0 - 45 U/L 03/04/2024 8:11 AM CDT RH LABORATORY Comment:Reference intervals for this test were updated on 03/21/2023 to more accurately reflect our healthy population. There may be differences in the flagging of prior results with similar values performed with this method. Interpretation of those prior results can be made in the context of the updated reference intervals. ALT 19 0 - 70 U/L 03/04/2024 8:11 AM CDT RH LABORATORY Comment:Reference intervals for this test were updated on 03/21/2023 to more accurately reflect our healthy population. There may be differences in the flagging of prior results with similar values performed with this method. Interpretation of those prior results can be made in the context of the updated reference intervals. Protein Total 5.5(L) 6.4 - 8.3 g/dL 03/04/2024 8:11 AM CDT RH LABORATORY Albumin 2.9(L) 3.5 - 5.2 g/dL 03/04/2024 8:11 AM CDT RH LABORATORY Bilirubin Total 0.5 <=1.2 mg/dL 03/04/2024 8:11 AM CDT RH LABORATORY Blood STRUCTURE OF RIGHT UPPER LIMB / Unknown Venipuncture / Unknown 03/04/2024 6:45 AM CDT 03/04/2024 6:54 AM CDT Aashish Romero DO LAB - BLOOD ORDER NADIA RH LABORATORY [facility] [address] [facility] Lab (1st floor, no room number) [place] [address], [facility] * (ABNORMAL) CBC with platelets (03/04/2024 6:45 AM CDT) [facility] WBC Count 6.7 4.0 - 11.0 10e3/uL 03/04/2024 7:25 AM CDT RH LABORATORY RBC Count 2.44(L) 4.40 - 5.90 10e6/uL 03/04/2024 7:25 AM CDT RH LABORATORY Hemoglobin 7.1(L) 13.3 - 17.7 g/dL 03/04/2024 7:25 AM CDT RH LABORATORY Hematocrit 22.1(L) 40.0 - 53.0 % 03/04/2024 7:25 AM CDT RH LABORATORY MCV 91 78 - 100 fL 03/04/2024 7:25 AM CDT RH LABORATORY MCH 29.1 26.5 - 33.0 pg 03/04/2024 7:25 AM CDT RH LABORATORY MCHC 32.0 31.5 - 36.5 g/dL 03/04/2024 7:25 AM CDT RH LABORATORY RDW 16.4(H) 10.0 - 15.0 % 03/04/2024 7:25 AM CDT RH LABORATORY Platelet Count 152 150 - 450 10e3/uL 03/04/2024 7:25 AM CDT RH LABORATORY Blood STRUCTURE OF RIGHT UPPER LIMB / Unknown Venipuncture / Unknown 03/04/2024 6:45 AM CDT 03/04/2024 6:54 AM CDT Aashish Romero DO LAB - BLOOD ORDER NADIA [facility] [address] Lab (1st floor, no room number) [place] [phone] [place] [address] * (ABNORMAL) Hemoglobin (03/04/2024 6:45 AM CDT) Hemoglobin 7.1(L) 13.3 - 17.7 g/dL 03/04/2024 6:57 AM CDT RH LABORATORY Blood STRUCTURE OF RIGHT UPPER LIMB / Unknown Venipuncture / Unknown 03/04/2024 6:45 AM CDT 03/04/2024 6:54 AM CDT Ron Tripathi MD LAB - BLOOD ORDERABL ES [facility] [address] Lab (1st floor, no room number) [place] [address] * Cortisol (03/04/2024 6:45 AM CDT) Cortisol [...] Romero DO LAB - BLOOD ORDER NADIA U LABORATORY [facility] [place] [facility] [address] [place] [address] * Glucose by meter (03/04/2024 5:08 AM CDT) GLUCOSE BY METER POCT 93 70 - 99 mg/dL 03/04/2024 5:15 AM CDT LABORATORY POC Blood, Capillary BLOOD SPECIMEN / Unknown 03/04/2024 5:08 AM CDT 03/04/2024 5:15 AM CDT Ron DEAN - BEXIANG POCT LABORATORY [facility] [address] [facility] Lab (1st floor, no room number) [place] [address] * (ABNORMAL) Glucose by meter (03/04/2024 3:28 AM CDT) GLUCOSE BY METER POCT 116(H) 70 - 99 mg/dL 03/04/2024 3:36 AM CDT LABORATORY POC Blood, Capillary BLOOD SPECIMEN / Unknown 03/04/2024 3:28 AM CDT 03/04/2024 3:36 AM CDT Ron Biala MD LAB - BEAKER POCT Performing Organization Address [facility]/ZIP Co de Phone Number LABORATORY [facility] [address] Lab (1st floor, no room number) [address] [place] [address] * Glucose by meter (03/04/2024 2:12 AM CDT) GLUCOSE BY METER POCT 77 70 - 99 mg/dL 03/04/2024 2:20 AM CDT RH LABORATORY POC Comment:Dr/RN Notified Blood, Capillary BLOOD SPECIMEN / Unknown 03/04/2024 2:12 AM CDT 03/04/2024 2:20 AM CDT Ron DEAN - DAVID POCT Performing Organization Address [facility]/ZIP Co de Phone Number LABORATORY [facility] [address] Lab (1st floor, no room number) [address] [place] [address] * Glucose by meter (03/04/2024 12:25 AM CDT) GLUCOSE BY METER POCT 96 70 - 99 mg/dL 03/04/2024 12:32 AM CDT LABORATORY POC Blood, Capillary BLOOD SPECIMEN / Unknown 03/04/2024 12:25 AM CDT 03/04/2024 12:32 AM CDT Ron DEAN - DAVID POCT Performing Organization Address City/[facility]/ZIP Co de Phone Number LABORATORY [facility] [address] Lab (1st floor, no room number) [address] [place] [address] * (ABNORMAL) Hemoglobin (03/03/2024 9:40 PM CDT) Hemoglobin 7.2(L) 13.3 - 17.7 g/dL 03/03/2024 9:53 PM CDT LABORATORY Blood STRUCTURE OF RIGHT UPPER LIMB / Unknown Venipuncture / Unknown 03/03/2024 9:40 PM CDT 03/03/2024 9:50 PM CDT Narrative Authorizing Provider Result Lauren Tripathi MD LAB - BLOOD ORDERABL ES Performing Organization Address City/[facility]/ZIP Co de Phone Number [facility] [address] Lab (1st floor, no room number) [place] [phone] [place] [address] * (ABNORMAL) Glucose by meter (03/03/2024 8:13 PM CDT) GLUCOSE BY METER POCT 144(H) 70 - 99 mg/dL 03/03/2024 8:20 PM CDT RH LABORATORY POC Blood, Capillary BLOOD SPECIMEN / Unknown 03/03/2024 8:13 PM CDT 03/03/2024 8:20 PM CDT Narrative Authorizing Provider Result Lauren Tripathi MD LAB - BEAKER POCT Performing Organization Address [facility]/ZIP Co de Phone Number LABORATORY [facility] [address] Lab (1st floor, no room number) [place] [phone], [facility] * (ABNORMAL) Glucose by meter (03/03/2024 6:23 PM CDT) GLUCOSE BY METER POCT 110(H) 70 - 99 mg/dL 03/03/2024 6:29 PM CDT LABORATORY POC Blood, Capillary BLOOD SPECIMEN / Unknown 03/03/2024 6:23 PM CDT 03/03/2024 6:29 PM CDT Narrative Authorizing Provider Result Lauren DEAN - BEAKER POCT Performing Organization Address City/[facility]/ZIP Co de Phone Number LABORATORY [facility] [address] Lab (1st floor, no room number) [place] [phone], [facility] * (ABNORMAL) Glucose by meter (03/03/2024 5:39 PM CDT) GLUCOSE BY METER POCT 57(L) 70 - 99 mg/dL 03/03/2024 5:45 PM CDT RH LABORATORY POC Blood, Capillary BLOOD SPECIMEN / Unknown 03/03/2024 5:39 PM CDT 03/03/2024 5:45 PM CDT Narrative Authorizing Provider Result Lauren Tripathi MD LAB - BEAKER POCT LABORATORY [facility] [address] Lab (1st floor, no room number) [place] [address] * (ABNORMAL) Glucose by meter (03/03/2024 5:11 PM CDT) GLUCOSE BY METER POCT 64(L) 70 - 99 mg/dL 03/03/2024 5:18 PM CDT LABORATORY POC Blood, Capillary BLOOD SPECIMEN / Unknown 03/03/2024 5:11 PM CDT 03/03/2024 5:18 PM CDT Ron Tripathi MD LAB - BEXIANG POCT Performing Organization Address [facility]/ZIP Co de Phone Number LABORATORY [facility] [address] Lab (1st floor, no room number) [place] [address] * (ABNORMAL) Glucose by meter (03/03/2024 4:39 PM CDT) GLUCOSE BY METER POCT 55(L) 70 - 99 mg/dL 03/03/2024 4:46 PM CDT LABORATORY POC Blood, Capillary BLOOD SPECIMEN / Unknown 03/03/2024 4:39 PM CDT 03/03/2024 4:46 PM CDT Narrative Authorizing Provider Result Lauren Tripathi MD LAB - BEAKER POCT Performing Organization Address City/[facility]/ZIP Co de Phone Number LABORATORY [facility] [address] Lab (1st floor, no room number) [place] [address] * (ABNORMAL) Glucose by meter (03/03/2024 4:17 PM CDT) GLUCOSE BY METER POCT 65(L) 70 - 99 mg/dL 03/03/2024 4:25 PM CDT RH LABORATORY POC Blood, Capillary BLOOD SPECIMEN / Unknown 03/03/2024 4:17 PM CDT 03/03/2024 4:25 PM CDT Narrative Authorizing Provider Result Lauren DEAN - BEAKER POCT LABORATORY [facility] [address] Lab (1st floor, no room number) [place] [phone] [place] [address] * (ABNORMAL) Glucose by meter (03/03/2024 2:11 PM CDT) GLUCOSE BY METER POCT 65(L) 70 - 99 mg/dL 03/03/2024 2:17 PM CDT LABORATORY POC Blood, Capillary BLOOD SPECIMEN / Unknown 03/03/2024 2:11 PM CDT 03/03/2024 2:17 PM CDT Narrative Authorizing Provider Result Lauren DEAN - BEAKER POCT Performing Organization Address City/[facility]/ZIP Co de Phone Number LABORATORY [facility] [address] Lab (1st floor, no room number) [place] [phone] [place] [address] * (ABNORMAL) Hemoglobin (03/03/2024 2:07 PM CDT) Hemoglobin 7.6(L) 13.3 - 17.7 g/dL 03/03/2024 2:13 PM CDT LABORATORY Blood STRUCTURE OF RIGHT UPPER LIMB / Unknown Venipuncture / Unknown 03/03/2024 2:07 PM CDT 03/03/2024 2:10 PM CDT Narrative Authorizing Provider Result Lauren Tripathi MD LAB - BLOOD ORDERABL ES [facility] [address] Lab (1st floor, no room number) [place] [phone], [facility] * (ABNORMAL) Glucose by meter (03/03/2024 11:59 AM CDT) GLUCOSE BY METER POCT 152(H) 70 - 99 mg/dL 03/03/2024 2:15 PM CDT RH LABORATORY POC Blood, Capillary BLOOD SPECIMEN / Unknown 03/03/2024 11:59 AM CDT 03/03/2024 2:15 PM CDT Ron Tripathi MD LAB - BEAKER POCT LABORATORY [facility] [address] Lab (1st floor, no room number) [address] [place] [address] * Glucose by meter (03/03/2024 11:36 AM CDT) GLUCOSE BY METER POCT 80 70 - 99 mg/dL 03/03/2024 2:14 PM CDT LABORATORY POC Blood, Capillary BLOOD SPECIMEN / Unknown 03/03/2024 11:36 AM CDT 03/03/2024 2:14 PM CDT Narrative Authorizing Provider Result Lauren DEAN - DAVID POCT Performing Organization Address [facility]/ZIP Co de Phone Number LABORATORY [facility] [address] Lab (1st floor, no room number) [address] * (ABNORMAL) Glucose by meter (03/03/2024 11:14 AM CDT) GLUCOSE BY METER POCT 39(LL) 70 - 99 mg/dL 03/03/2024 2:14 PM CDT RH LABORATORY POC Comment:Dr/RN Notified Blood, Capillary BLOOD SPECIMEN / Unknown 03/03/2024 11:14 AM CDT 03/03/2024 2:14 PM CDT Narrative Authorizing Provider Result Lauren Tripathi MD LAB - BEAKER POCT LABORATORY [facility] [address] Lab (1st floor, no room number) [place] [phone] [place] [address] * Glucose by meter (03/03/2024 10:51 AM CDT) GLUCOSE BY METER POCT 79 70 - 99 mg/dL 03/03/2024 10:58 AM CDT RH LABORATORY POC Blood, Capillary BLOOD SPECIMEN / Unknown 03/03/2024 10:51 AM CDT 03/03/2024 10:58 AM CDT Narrative Authorizing Provider Result Lauren Tripathi MD LAB - BEAKER POCT LABORATORY [facility] [address] Lab (1st floor, no room number) [place] [phone] [place] [address] * (ABNORMAL) Glucose by meter (03/03/2024 10:30 AM CDT) GLUCOSE BY METER POCT 56(L) 70 - 99 mg/dL 03/03/2024 10:37 AM CDT LABORATORY POC Blood, Capillary BLOOD SPECIMEN / Unknown 03/03/2024 10:30 AM CDT 03/03/2024 10:37 AM CDT Narrative Authorizing Provider Result Lauren DEAN - BEAKER POCT Performing Organization Address [facility]/ZIP Co de Phone Number LABORATORY [facility] [address] Lab (1st floor, no room number) [address] [place] [address] * (ABNORMAL) Hemoglobin (03/03/2024 6:10 AM CDT) Hemoglobin 7.1(L) 13.3 - 17.7 g/dL 03/03/2024 6:27 AM CDT RH LABORATORY Blood STRUCTURE OF RIGHT UPPER LIMB / Unknown Venipuncture / Unknown 03/03/2024 6:10 AM CDT 03/03/2024 6:25 AM CDT Narrative Authorizing Provider Result Lauren Tripathi MD LAB - BLOOD ORDERABL ES Performing Organization Address City/[facility]/ZIP Co de Phone Number LABORATORY [facility] [address] Lab (1st floor, no room number) [place] [address] * (ABNORMAL) INR (03/03/2024 6:10 AM CDT) INR 2.23(H) 0.85 - 1.15 03/03/2024 6:46 AM CDT RH LABORATORY Blood STRUCTURE OF RIGHT UPPER LIMB / Unknown Venipuncture / Unknown 03/03/2024 6:10 AM CDT 03/03/2024 6:25 AM CDT Ron Tripathi MD LAB - BLOOD ORDERABL ES Performing Organization Address [facility]/ZIP Co de Phone Number LABORATORY [facility] [address] Lab (1st floor, no room number) [place] [phone] * (ABNORMAL) CBC with platelets (03/03/2024 6:10 AM CDT) WBC Count 5.5 4.0 - 11.0 10e3/uL 03/03/2024 6:27 AM CDT RH LABORATORY RBC Count 2.43(L) 4.40 - 5.90 10e6/uL 03/03/2024 6:27 AM CDT RH LABORATORY Hemoglobin 7.1(L) 13.3 - 17.7 g/dL 03/03/2024 6:27 AM CDT RH LABORATORY Hematocrit 22.6(L) 40.0 - 53.0 % 03/03/2024 6:27 AM CDT RH LABORATORY MCV 93 78 - 100 fL 03/03/2024 6:27 AM CDT RH LABORATORY MCH 29.2 26.5 - 33.0 pg 03/03/2024 6:27 AM CDT RH LABORATORY MCHC 31.4(L) 31.5 - 36.5 g/dL 03/03/2024 6:27 AM CDT RH LABORATORY RDW 17.4(H) 10.0 - 15.0 % 03/03/2024 6:27 AM CDT RH LABORATORY Platelet Count 131(L) 150 - 450 10e3/uL 03/03/2024 6:27 AM CDT LABORATORY Blood STRUCTURE OF RIGHT UPPER LIMB / Unknown Venipuncture / Unknown 03/03/2024 6:10 AM CDT 03/03/2024 6:25 AM CDT Ron Tripathi MD LAB - BLOOD ORDERABL ES LABORATORY [facility] [address] Lab (1st floor, no room number) [place] [address] * (ABNORMAL) Basic metabolic panel (03/03/2024 6:10 AM CDT) Sodium 132(L) 135 - 145 mmol/L 03/03/2024 6:46 AM CDT LABORATORY Comment:Reference intervals for this test were updated on 07/05/2023 to more accurately reflect our healthy population. There may be differences in the flagging of prior results with similar values performed with this method. Interpretation of those prior results can be made in the context of the updated reference intervals. Potassium 4.3 3.4 - 5.3 mmol/L 03/03/2024 6:46 AM CDT LABORATORY Chloride 93(L) 98 - 107 mmol/L 03/03/2024 6:46 AM CDT LABORATORY Carbon Dioxide (CO2) 27 22 - 29 mmol/L 03/03/2024 6:46 AM CDT LABORATORY Anion Gap 12 7 - 15 mmol/L 03/03/2024 6:46 AM CDT LABORATORY Urea Nitrogen 35.9(H) 8.0 - 23.0 mg/dL 03/03/2024 6:46 AM CDT LABORATORY Creatinine 5.63(H) 0.67 - 1.17 mg/dL 03/03/2024 6:46 AM CDT LABORATORY GFR Estimate 11(L) >60 mL/min/1. 73m2 03/03/2024 6:46 AM CDT LABORATORY Calcium 8.2(L) 8.8 - 10.2 mg/dL 03/03/2024 6:46 AM CDT LABORATORY Glucose 138(H) 70 - 99 mg/dL 03/03/2024 6:46 AM CDT RH LABORATORY Blood STRUCTURE OF RIGHT UPPER LIMB / Unknown Venipuncture / Unknown 03/03/2024 6:10 AM CDT 03/03/2024 6:25 AM CDT Narrative Authorizing Provider Result Lauren Tripathi MD LAB - BLOOD ORDERABL ES LABORATORY [facility] [address] Lab (1st floor, no room number) [place] [address], [place] * (ABNORMAL) Glucose by meter (03/03/2024 5:27 AM CDT) GLUCOSE BY METER POCT 135(H) 70 - 99 mg/dL 03/03/2024 5:34 AM CDT LABORATORY POC Blood, Capillary BLOOD SPECIMEN / Unknown 03/03/2024 5:27 AM CDT 03/03/2024 5:34 AM CDT Narrative Authorizing Provider Result Lauren DEAN - BEAKER POCT Performing Organization Address City/[facility]/ZIP Co de Phone Number LABORATORY [facility] [address] Lab (1st floor, no room number) [place] [address], [facility] * Glucose by meter (03/03/2024 4:16 AM CDT) GLUCOSE BY METER POCT 71 70 - 99 mg/dL 03/03/2024 4:23 AM CDT LABORATORY POC Blood, Capillary BLOOD SPECIMEN / Unknown 03/03/2024 4:16 AM CDT 03/03/2024 4:23 AM CDT Narrative Authorizing Provider Result Lauren DEAN - BEAKER POCT LABORATORY [facility] [address] Lab (1st floor, no room number) [place] [address], [facility] * Glucose by meter (03/03/2024 2:40 AM CDT) GLUCOSE BY METER POCT 91 70 - 99 mg/dL 03/03/2024 2:46 AM CDT RH LABORATORY POC Blood, Capillary BLOOD SPECIMEN / Unknown 03/03/2024 2:40 AM CDT 03/03/2024 2:46 AM CDT Ron Tripathi MD LAB - BEXIANG POCT LABORATORY [facility] [address] Lab (1st floor, no room number) [address] * CONDITIONAL Transfuse red blood cells (unit) 1; No special requirements (03/03/2024 1:50 AM CDT) Eileen Earl MD BLOOD TRANSFUSION ORDERABLES * Glucose by meter (03/03/2024 1:38 AM CDT) GLUCOSE BY METER POCT 82 70 - 99 mg/dL 03/03/2024 1:46 AM CDT LABORATORY POC Blood, Capillary BLOOD SPECIMEN / Unknown 03/03/2024 1:38 AM CDT 03/03/2024 1:46 AM CDT oRn DEAN - DAVID POCT Performing Organization Address [facility]/ZIP Co de Phone Number LABORATORY [facility] [address] Lab (1st floor, no room number) [address] * Glucose by meter (03/03/2024 12:34 AM CDT) GLUCOSE BY METER POCT 74 70 - 99 mg/dL 03/03/2024 12:40 AM CDT LABORATORY POC Blood, Capillary BLOOD SPECIMEN / Unknown 03/03/2024 12:34 AM CDT 03/03/2024 12:40 AM CDT Ron DEAN - DAVID POCT LABORATORY [facility] [address] Lab (1st floor, no room number) [place] [address] * Transfuse red blood cells (unit) (03/02/2024 10:54 PM CDT) Raúl Bernard MD BLOOD TRANSFUSION OR DERABLES * (ABNORMAL) Hemoglobin (03/02/2024 10:17 PM CDT) Hemoglobin 6.7(LL) 13.3 - 17.7 g/dL 03/02/2024 10:35 PM CDT LABORATORY Blood STRUCTURE OF RIGHT UPPER LIMB / Unknown Venipuncture / Unknown 03/02/2024 10:17 PM CDT 03/02/2024 10:26 PM CDT Ron Tripathi MD LAB - BLOOD ORDERABL ES LABORATORY [facility] [address] Lab (1st floor, no room number) [place] [phone] * (ABNORMAL) Glucose by meter (03/02/2024 9:34 PM CDT) GLUCOSE BY METER POCT 126(H) 70 - 99 mg/dL 03/02/2024 10:03 PM CDT LABORATORY POC Blood, Capillary BLOOD SPECIMEN / Unknown 03/02/2024 9:34 PM CDT 03/02/2024 10:03 PM CDT Ron Tripathi MD LAB - BEAKER POCT LABORATORY POC [facility] [address] Lab (1st floor, no room number) [place] [phone] * (ABNORMAL) Glucose by meter (03/02/2024 9:01 PM CDT) GLUCOSE BY METER POCT 136(H) 70 - 99 mg/dL 03/02/2024 9:11 PM CDT [facility] LABORATORY POC Blood, Capillary BLOOD SPECIMEN / Unknown 03/02/2024 9:01 PM CDT 03/02/2024 9:11 PM CDT Narrative Authorizing Provider Result Lauren Tripathi MD LAB - BEAKER POCT Performing Organization Address [facility]/ZIP Co de Phone Number LABORATORY [facility] [address] Lab (1st floor, no room number) [place] [phone] [place] [address] * (ABNORMAL) Glucose by meter (03/02/2024 8:26 PM CDT) GLUCOSE BY METER POCT 65(L) 70 - 99 mg/dL 03/02/2024 8:34 PM CDT LABORATORY POC Blood, Capillary BLOOD SPECIMEN / Unknown 03/02/2024 8:26 PM CDT 03/02/2024 8:34 PM CDT Ron Tripathi MD LAB - BEAKER POCT Performing Organization Address [facility]/ZIP Co de Phone Number [facility] [facility] [address] Lab (1st floor, no room number) [place] [id number] [place] [address] * (ABNORMAL) Glucose by meter (03/02/2024 8:01 PM CDT) GLUCOSE BY METER POCT 54(L) 70 - 99 mg/dL 03/02/2024 8:27 PM CDT LABORATORY POC Blood, Capillary BLOOD SPECIMEN / Unknown 03/02/2024 8:01 PM CDT 03/02/2024 8:27 PM CDT Narrative Authorizing Provider Result Lauren Tripathi MD LAB - BEAKER POCT Performing Organization Address City/[facility]/ZIP Co de Phone Number LABORATORY [facility] [address] Lab (1st floor, no room number) [address] [place] [address] * (ABNORMAL) Glucose by meter (03/02/2024 7:45 PM CDT) GLUCOSE BY METER POCT 41(LL) 70 - 99 mg/dL 03/02/2024 7:55 PM CDT RH LABORATORY POC Blood, Capillary BLOOD SPECIMEN / Unknown 03/02/2024 7:45 PM CDT 03/02/2024 7:55 PM CDT Ron Tripathi MD LAB - BEAKER POCT RH LABORATORY POC [facility] [address] Lab (1st floor, no room number) [place] [address] * (ABNORMAL) Ammonia (on ice) (03/02/2024 3:55 PM CDT) Ammonia <10(L) 16 - 60 umol/L 03/02/2024 4:21 PM CDT RH LABORATORY Blood STRUCTURE OF RIGHT UPPER LIMB / Unknown Venipuncture / Unknown 03/02/2024 3:55 PM CDT 03/02/2024 3:57 PM CDT Raúl Bernard MD LAB - BLOOD ORDERABL ES Performing Organization Address [facility]/ZIP Co de Phone Number RH LABORATORY [facility] [address] Lab (1st floor, no room number) [place] [address] * Prepare red blood cells (unit) (03/02/2024 3:29 PM CDT) Blood Component Type Red Blood Cells RH BLOOD BANK Product Code [id number] RH BLOO D BANK Unit Status Transfused RH BLOO D BANK Unit Number [id number] RH B LOOD BANK CROSSMATCH Compatible RH BLOOD BANK CODING SYSTEM [id number] RH BLO OD BANK ISSUE DATE AND TIME [id number] RH BLOOD BANK UNIT ABO/RH O+ RH BLOOD BANK UNIT TYPE ISBT 5100 RH BL OOD BANK 03/02/2024 3:29 PM CDT Raúl Bernard MD BLOOD BANK PRODUCT O RDERABLES RH BLOOD BANK [address] [place] [address] * Prepare red blood cells (unit) (03/02/2024 3:29 PM CDT) Blood Component Type Red Blood Cells RH BLOOD BANK Product Code [id number] RH BLOO D BANK Unit Status Transfused RH BLOO D BANK Unit Number [id number] RH B LOOD BANK CROSSMATCH Compatible RH BLOOD BANK CODING SYSTEM [id number] RH BLO OD BANK ISSUE DATE AND TIME [id number] RH BLOOD BANK UNIT ABO/RH O+ RH BLOOD BANK UNIT TYPE ISBT 5100 RH BL OOD BANK 03/02/2024 3:29 PM CDT Raúl Bernard MD BLOOD BANK PRODUCT O RDERABLES RH BLOOD BANK [address] [place] [address] * EKG 12-lead, tracing only (03/02/2024 2:00 PM CDT) Systolic Blood Pressure mmHg RADIOLOGY RESULTS Diastolic Blood Pressure mmHg RADIOLOGY RESULTS Ventricular Rate 82 BPM RAD IOLOGY RESULTS Atrial Rate 82 BPM RADIOLOG Y RESULTS PA Interval 210 ms RADIOLOG Y RESULTS QRS Duration 88 ms RADIOLO GY RESULTS QT 382 ms RADIOLOGY RESULTS QTc 446 ms RADIOLOGY RESULTS P [place] 45 degrees RADIOLOGY RESULTS R AXIS -7 degrees RADIOLOGY RESULTS T [place] 24 degrees RADIOLOGY RESULTS Interpretation ECG Sinus rhythm with 1st degree A-V block Inferior infarct , age undetermined Abnormal ECG When compared with ECG of 24-FEB-2024 10:12, No significant change was found Unconfirmed report - interpretation of this ECG is computer generated - see medical record for final interpretation Confirmed by - EMERGENCY ROOM, PHYSICIAN ([id number]), editor sound YISSEL VELASQUEZ ([id number]) on 03/02/2024 3:43:16 PM RADIOLOGY RESULTS 03/02/2024 2:00 PM CDT 03/02/2024 3:43 PM CDT Raúl Bernard MD ECG ORDERABLES RADIOLOGY RESULTS * Asymptomatic Influenza A/B, RSV, & SARS-CoV2 PCR (COVID-19) Nasopharyngeal (03/02/2024 1:57 PM CDT) Pathologist [facility] Influenza A PCR Negative Negative 03/02/2024 3:05 [...] 1:57 PM CDT 03/02/2024 2:14 PM CDT [facility] RH LABORATORY - 03/02/2024 3:05 PM CDT Testing was performed using the Xpert Xpress CoV2/Flu/RSV Assay on the Tren[employer]on GeneXpert Instrument. This test should be ordered [...] management. This test was validated by the [email or web address]. These laboratories are certified under the Clinical Laboratory Improvement Amendments of 1988 (CLIA-88) as qualified to perform high complexity laboratory testing. Raúl Bernard MD LAB - MICRO GENERAL ORDERABLES [facility] [address] [facility] Lab (1st floor, no room number) [place] [address], [facility] * Hemoglobin A1c (03/02/2024 1:56 PM CDT) Pathologist [facility] Hemoglobin A1C 5.5 <5.7 % 03/02/2024 7:31 PM CDT RH LABORATORY Comment: Normal <5.7% Prediabetes 5.7-6.4% ?? Diabetes 6.5% or higher Note: Adopted from ADA consensus guidelines. Blood BLOOD SPECIMEN / Unknown Venipuncture / Unknown 03/02/2024 1:56 PM CDT 03/02/2024 2:15 PM CDT Ron Tripathi MD LAB - BLOOD ORDERABL ES LABORATORY [facility] [address] Lab (1st floor, no room number) [place] [phone] * Adult Type and Screen (03/02/2024 1:56 PM CDT) ABO/RH(D) O POS 03/02/2024 2:59 PM CDT RH BLOOD BANK Antibody Screen Negative Negative 03/02/2024 2:59 PM CDT RH BLOOD BANK SPECIMEN EXPIRATION DATE [id number] 03/02/2024 2:59 PM CDT RH BLOOD BANK Blood BLOOD SPECIMEN / Unknown Venipuncture / Unknown 03/02/2024 1:56 PM CDT 03/02/2024 2:15 PM CDT Raúl Bernard MD LAB - BLOOD BANK SHANNON T ORDER Performing Organization Address [facility]/ZIP Co de Phone Number RH BLOOD BANK [address] [place] [address] * (ABNORMAL) CBC with platelets and differential (03/02/2024 1:56 PM CDT) WBC Count 5.0 4.0 - 11.0 10e3/uL 03/02/2024 3:24 PM CDT RH LABORATORY RBC Count 2.10(L) 4.40 - 5.90 10e6/uL 03/02/2024 3:24 PM CDT RH LABORATORY Hemoglobin 6.3(LL) 13.3 - 17.7 g/dL 03/02/2024 3:24 PM CDT RH LABORATORY Hematocrit 20.0(L) 40.0 - 53.0 % 03/02/2024 3:24 PM CDT RH LABORATORY MCV 95 78 - 100 fL 03/02/2024 3:24 PM CDT RH LABORATORY MCH 30.0 26.5 - 33.0 pg 03/02/2024 3:24 PM CDT RH LABORATORY MCHC 31.5 31.5 - 36.5 g/dL 03/02/2024 3:24 PM CDT RH LABORATORY RDW 17.0(H) 10.0 - 15.0 % 03/02/2024 3:24 PM CDT RH LABORATORY Platelet Count 165 150 - 450 10e3/uL 03/02/2024 3:24 PM CDT RH LABORATORY % Neutrophils 75 % 03/02/2024 3:24 PM CDT RH LABORATORY % Lymphocytes 12 % 03/02/2024 3:24 PM CDT RH LABORATORY % Monocytes 9 % 03/02/2024 3:24 PM CDT RH LABORATORY % Eosinophils 3 % 03/02/2024 3:24 PM CDT RH LABORATORY % Basophils 0 % 03/02/2024 3:24 PM CDT RH LABORATORY % Immature Granulocytes 1 % 03/02/2024 3:24 PM CDT RH LABORATORY NRBCs per 100 WBC 0 <1 /100 024 3:24 PM CDT RH LABORATORY Absolute Neutrophils 3.7 1.6 - 8.3 10e3/uL 03/02/2024 3:24 PM CDT RH LABORATORY Absolute Lymphocytes 0.6(L) 0.8 - 5.3 10e3/uL 03/02/2024 3:24 PM CDT RH LABORATORY Absolute Monocytes 0.5 0.0 - 1.3 10e3/uL 03/02/2024 3:24 PM CDT RH LABORATORY Absolute Eosinophils 0.2 0.0 - 0.7 10e3/uL 03/02/2024 3:24 PM CDT RH LABORATORY Absolute Basophils 0.0 0.0 - 0.2 10e3/uL 03/02/2024 3:24 PM CDT RH LABORATORY Absolute Immature Granulocytes 0.1 <=0.4 10e3/uL 03/02/2024 3:24 PM CDT RH LABORATORY Absolute NRBCs 0.0 10e3/uL 03/02/2024 3:24 PM CDT RH LABORATORY Blood BLOOD SPECIMEN / Unknown Venipuncture / Unknown 03/02/2024 1:56 PM CDT 03/02/2024 2:15 PM CDT Raúl Bernard MD LAB - BLOOD ORDERABL ES LABORATORY [facility] [address] Lab (1st floor, no room number) [address] * (ABNORMAL) INR (03/02/2024 1:56 PM CDT) INR 2.09(H) 0.85 - 1.15 03/02/2024 3:14 PM CDT RH LABORATORY Blood BLOOD SPECIMEN / Unknown Venipuncture / Unknown 03/02/2024 1:56 PM CDT 03/02/2024 2:15 PM CDT Raúl Bernard MD LAB - BLOOD ORDERABL ES Performing Organization Address [facility]/ZIP Co de Phone Number LABORATORY [facility] [address] Lab (1st floor, no room number) [address] * (ABNORMAL) Comprehensive metabolic panel (03/02/2024 1:56 PM CDT) Sodium 131(L) 135 - 145 mmol/L 03/02/2024 3:31 PM CDT RH LABORATORY Comment:Reference intervals for this test were updated on 07/05/2023 to more accurately reflect our healthy population. There may be differences in the flagging of prior results with similar values performed with this method. Interpretation of those prior results can be made in the context of the updated reference intervals. Potassium 4.0 3.4 - 5.3 mmol/L 03/02/2024 3:31 PM CDT RH LABORATORY Carbon Dioxide (CO2) 27 22 - 29 mmol/L 03/02/2024 3:31 PM CDT RH LABORATORY Anion Gap 13 7 - 15 mmol/L 03/02/2024 3:31 PM CDT RH LABORATORY Urea Nitrogen 25.4(H) 8.0 - 23.0 mg/dL 03/02/2024 3:31 PM CDT RH LABORATORY Creatinine 3.68(H) 0.67 - 1.17 mg/dL 03/02/2024 3:31 PM CDT RH LABORATORY GFR Estimate 18(L) >60 mL/min/1. 73m2 03/02/2024 3:31 PM CDT RH LABORATORY Calcium 8.3(L) 8.8 - 10.2 mg/dL 03/02/2024 3:31 PM CDT RH LABORATORY Chloride 91(L) 98 - 107 mmol/L 03/02/2024 3:31 PM CDT RH LABORATORY Glucose 194(H) 70 - 99 mg/dL 03/02/2024 3:31 PM CDT RH LABORATORY Alkaline Phosphatase 73 40 - 150 U/L 03/02/2024 3:31 PM CDT RH LABORATORY AST 25 0 - 45 U/L 03/02/2024 3:31 PM CDT RH LABORATORY Comment:Reference intervals for this test were updated on 03/21/2023 to more accurately reflect our healthy population. There may be differences in the flagging of prior results with similar values performed with this method. Interpretation of those prior results can be made in the context of the updated reference intervals. ALT 25 0 - 70 U/L 03/02/2024 3:31 PM CDT RH LABORATORY Comment:Reference intervals for this test were updated on 03/21/2023 to more accurately reflect our healthy population. There may be differences in the flagging of prior results with similar values performed with this method. Interpretation of those prior results can be made in the context of the updated reference intervals. Protein Total 6.4 6.4 - 8.3 g/dL 03/02/2024 3:31 PM CDT RH LABORATORY Albumin 3.3(L) 3.5 - 5.2 g/dL 03/02/2024 3:31 PM CDT RH LABORATORY Bilirubin Total 0.2 <=1.2 mg/dL 03/02/2024 3:31 PM CDT RH LABORATORY Blood BLOOD SPECIMEN / Unknown Venipuncture / Unknown 03/02/2024 1:56 PM CDT 03/02/2024 2:15 PM CDT Raúl Bernard MD LAB - BLOOD ORDERABL ES Performing Organization Address [facility]/ZIP Co de Phone Number [facility] [address] Lab (1st floor, no room number) [address] * Extra Heparinized Syringe (03/02/2024 1:56 PM CDT) Hold Specimen [facility] 03/02/2024 3:17 PM CDT RH LABORATORY Blood, venous BLOOD SPECIMEN / Unknown Venipuncture / Unknown 03/02/2024 1:56 PM CDT 03/02/2024 2:14 PM CDT Raúl Bernard MD LAB - BLOOD ORDERABL ES Performing Organization Address [facility]/ZIP Co de Phone Number [facility] Lab [address] Lab (1st floor, no room number) [address] [place] [address] * Extra Blood Bank Purple Top Tube (03/02/2024 1:56 PM CDT) Hold Specimen [facility] 03/02/2024 3:17 PM CDT RH LABORATORY Blood BLOOD SPECIMEN / Unknown Venipuncture / Unknown 03/02/2024 1:56 PM CDT 03/02/2024 2:15 PM CDT Raúl Bernard MD LAB - BLOOD ORDERABL ES Performing Organization Address [facility]/ZIP Co de Phone Number [facility] Lab [address] Lab (1st floor, no room number) [address] * Extra Blood Bank Purple Top Tube (03/02/2024 1:56 PM CDT) Hold Specimen [facility] 03/02/2024 3:17 PM CDT RH LABORATORY Blood BLOOD SPECIMEN / Unknown Venipuncture / Unknown 03/02/2024 1:56 PM CDT 03/02/2024 2:15 PM CDT Raúl Bernard MD LAB - BLOOD ORDERABL ES Performing Organization Address [facility]/ZIP Co de Phone Number [facility] [address] Lab (1st floor, no room number) [place] [address] * Extra Purple Top Tube (03/02/2024 1:56 PM CDT) Hold Specimen [facility] 03/02/2024 3:17 PM CDT RH LABORATORY Blood BLOOD SPECIMEN / Unknown Venipuncture / Unknown 03/02/2024 1:56 PM CDT 03/02/2024 2:15 PM CDT Raúl Bernard MD LAB - BLOOD ORDERABL ES Performing Organization Address [facility]/ZIP Co de Phone Number [facility] Lab [address] Lab (1st floor, no room number) [place] [phone] * Extra Green Top (Butternut Heparin) Tube (03/02/2024 1:56 PM CDT) Hold Specimen [facility] 03/02/2024 3:17 PM CDT RH LABORATORY Blood BLOOD SPECIMEN / Unknown Venipuncture / Unknown 03/02/2024 1:56 PM CDT 03/02/2024 2:15 PM CDT Raúl Bernard MD LAB - BLOOD ORDERABL ES Performing Organization Address [facility]/ZIP Co de Phone Number [facility] Lab [address] Lab (1st floor, no room number) [place] [address] * Extra Red Top Tube (03/02/2024 1:56 PM CDT) Hold Specimen [facility] 03/02/2024 3:17 PM CDT RH LABORATORY Blood BLOOD SPECIMEN / Unknown Venipuncture / Unknown 03/02/2024 1:56 PM CDT 03/02/2024 2:15 PM CDT Raúl Bernard MD LAB - BLOOD ORDERABL ES [facility] [address] Lab (1st floor, no room number) [place] [address], [facility] * Extra Blue Top Tube (03/02/2024 1:56 PM CDT) Hold Specimen [facility] 03/02/2024 3:17 PM CDT LABORATORY Blood BLOOD SPECIMEN / Unknown Venipuncture / Unknown 03/02/2024 1:56 PM CDT 03/02/2024 2:15 PM CDT Raúl Bernard MD LAB - BLOOD ORDERABL ES [facility] [address] Lab (1st floor, no room number) [place] [address], [facility] documented in this encounter Visit Diagnoses Diagnosis Hypoglycemia- Primary Hypoglycemia, unspecified Anemia, unspecified type Black stool Nonspecific abnormal finding in stool contents Gastrointestinal hemorrhage, unspecified gastrointestinal hemorrhage type Black stool Nonspecific abnormal finding in stool contents Anemia, unspecified type documented in this encounter Administered Medications Inactive Administered Medications - up to 3 most recent administrations Medication Order MAR Action Action Date Dose Rate Site - MEDICATION INSTRUCTIONS for Dialysis Patients - SEE ADMIN INSTRUCTIONS, Starting on 03/03/24 at 1048, Until 03/12/24 at 1836, Do not give any medication that may affect blood pressure or volume before dialysis. The following medications may be removed by dialysis and should be given after dialysis: renal multivitamin, calcium carbonate acetaminophen (TYLENOL) Suppository 650 mg 650 mg, Rectal, EVERY 4 HOURS PRN, mild pain, other, and adjunct with moderate or severe pain or per patient request, Starting on Tue03/02/24 at 1855, Alternate with ibuprofen if ordered. Maximum acetaminophen dose from all sources = 75 mg/kg/day not to exceed 4 grams/day. acetaminophen (TYLENOL) tablet 650 mg 650 mg, Oral, EVERY 4 HOURS PRN, mild pain, other, and adjunct with moderate or severe pain or per patient request, Starting on Tue03/02/24 at 1855, Alternate with ibuprofen if ordered. Maximum acetaminophen dose from all sources = 75 mg/kg/day not to exceed 4 grams/day. amLODIPine (NORVASC) tablet 5 mg 5 mg, Oral, DAILY, First dose on Tue03/04/24 at 1030 $Given 03/12/2024 2:02 PM CDT 5 mg $Given 03/11/2024 8:45 AM CDT 5 mg $Given 03/10/2024 9:02 AM CDT 5 mg atorvastatin (LIPITOR) tablet 20 mg 20 mg, Oral, EVERY EVENING, First dose on Tue03/02/24 at 2000 $Given 03/11/2024 8:10 PM CDT 20 mg $Given 03/10/2024 9:06 PM CDT 20 mg $Given 03/09/2024 7:13 PM CDT 20 mg calcium acetate (PHOSLO) capsule 667 mg 667 mg, Oral, 3 TIMES DAILY WITH MEALS, First dose on Tue03/02/24 at 1900, Best if given with meals. $Given 03/12/2024 2:01 PM CDT 667 mg $Given 03/12/2024 8:15 AM CDT 667 mg $Given 03/11/2024 5:36 PM CDT 667 mg dextrose 10% infusion at 40 mL/hr, Intravenous, CONTINUOUS, Stop for blood sugar greater than 200 then recheck BS 30 minutes after stopping, Starting on 03/03/24 at 1130, Until 03/10/24 at 0947 Rate/Dose Verify 03/09/2024 6:01 PM CDT 40 mL/hr $New Bag 03/09/2024 2:24 PM CDT 40 mL/hr Rate/Dose Verify 03/09/2024 9:45 AM CDT 40 mL/h r dextrose 50 % injection 25-50 mL 25-50 mL, Intravenous, EVERY 15 MIN PRN, low blood sugar, Administer over 1-5 Minutes, Starting on Tue03/02/24 at 1855, Use if have IV access, BG less [...] mg/dL x 2 consecutive 15 minute checks. Vesicant. $Given 03/08/2024 2:00 PM CDT 25 mLs $Given 03/08/2024 1:39 PM CDT 25 mLs $Given 03/08/2024 11:15 AM CDT 25 mLs glucagon injection 1 mg 1 mg, Subcutaneous, EVERY 15 MIN PRN, low blood sugar, May repeat x 1 only, Starting on Tue03/02/24 at 1855, May give SQ or IM. ONLY use glucagon IF patient has NO IV access AND is UNABLE to swallow AND blood glucose is LESS than or EQUAL to 50 mg/dL. glucose gel 15-30 g 15-30 g, Oral, EVERY 15 MIN PRN, low blood sugar, Starting on Tue03/02/24 at 1855, Give first dose for initial blood glucose [...] Document juice on I and O flowsheet. $Given 03/04/2024 1:12 PM CDT 30 g $Given 03/04/2024 12:03 PM CDT 15 g $Given 03/03/2024 6:14 PM CDT 15 g insulin aspart (NovoLOG) injection (RAPID ACTING) 1-4 Units, Subcutaneous, EVERY 4 HOURS, First dose on Tue03/02/24 at 1900, Correction Scale - LOW INSULIN RESISTANCE DOSING? Do Not give Correction Insulin if BG less than 140. For BG 140 - 239 give 1 unit. For BG 240 - 339 give 2 units. For BG?340 - 439?give 3 units For BG greater than or equal to 440 give 4 units Check blood glucose Q4H and administer based on blood glucose. Notify provider if glucose greater than??or equal to 350 mg/dL after administration of correction dose. $Given 03/09/2024 9:26 PM CDT 1 U nits $Given 03/09/2024 6:01 PM CDT 1 Units $Given 03/09/2024 1:43 PM CDT 1 Units insulin aspart (NovoLOG) injection (RAPID ACTING) 1-4 Units, Subcutaneous, 3 TIMES DAILY WITH MEALS, First dose (after last modification) on 03/10/24 at 0900, Correction Scale - LOW INSULIN RESISTANCE DOSING? Do Not give Correction Insulin if BG less than 140. For BG 140 - 239 give 1 unit. For BG 240 - 339 give 2 units. For BG?340 - 439?give 3 units For BG greater than or equal to 440 give 4 units Check blood glucose Q4H and administer based on blood glucose. Notify provider if glucose greater than??or equal to 350 mg/dL after administration of correction dose. $Given 03/11/2024 5:40 PM CDT 1 Units $Given 03/10/2024 4:52 PM CDT 1 Units iron sucrose (VENOFER) injection 100 mg 100 mg, Intravenous, ONCE IN DIALYSIS/CRRT, Administer over 2-5 Minutes, On 03/05/24 at 0730, For 1 dose, GIVE DURING DIALYSIS, Dialysis $Given 03/05/2024 1:27 PM CDT 100 mg metoprolol tartrate (LOPRESSOR) tablet 100 mg 100 mg, Oral, EVERY MORNING, First dose on 03/03/24 at 0900 $Given 03/12/2024 2:02 PM CDT 100 mg $Given 03/11/2024 8:45 AM CDT 100 mg $Given 03/10/2024 9:02 AM CDT 100 mg multivitamin RENAL (TRIPHROCAPS) capsule Oral, EVERY EVENING, First dose on Tue03/02/24 at 2000 $Given 03/11/2024 8:10 PM CDT 1 mg $Given 03/10/2024 9:06 PM CDT 1 mg $Given 03/09/2024 7:14 PM CDT 1 mg naloxone (NARCAN) injection 0.2 mg 0.2 mg, Intravenous, EVERY 2 MIN PRN, opioid reversal, Starting on Tue03/02/24 at 1922, Administer intravenous route when available and notify [...] 2 MIN PRN, opioid reversal, Starting on Tue03/02/24 at 1922, Administer intramuscular if an intravenous route is [...] 2 MIN PRN, opioid reversal, Starting on Tue03/02/24 at 1922, Administer intravenous route when available and notify [...] 2 MIN PRN, opioid reversal, Starting on Tue03/02/24 at 1922, Administer intramuscular if an intravenous route is [...] have not improved after 4 naloxone doses. No heparin via hemodialysis machine ONCE, 1 dose, On Tue03/05/24 at 0730, Normal saline flushes may be used to maintain patency of circuit., Dialysis $Given 03/05/2024 1:27 PM CDT No heparin via hemodialysis machine ONCE, 1 dose, On Tue03/09/24 at 0730, Normal saline flushes may be used to maintain patency of circuit., Dialysis $Given 03/09/2024 9:54 AM CDT No heparin via hemodialysis machine ONCE, 1 dose, On Tue03/12/24 at 0830, Normal saline flushes may be used to maintain patency of circuit., Dialysis $Given 03/12/2024 11:57 AM CDT ondansetron (ZOFRAN ODT) ODT tab 4 mg 4 mg, Oral, EVERY 6 HOURS PRN, nausea, vomiting, Starting on Tue03/02/24 at 1855, This is Step 1 of nausea and vomiting management. If nausea not resolved in 15 minutes, go to Step 2 prochlorperazine (COMPAZINE). With dry hands, peel back foil backing and gently remove tablet. Do not push oral disintegrating tablet through foil backing. Administer immediately on tongue and oral disintegrating tablet dissolves in seconds, then swallow with saliva. Liquid not required. ondansetron (ZOFRAN) injection 4 mg 4 mg, Intravenous, EVERY 6 HOURS PRN, nausea, vomiting, Administer over 2-5 Minutes, Starting on Tue03/02/24 at 1855, Give IF patient unable to tolerate oral medication. This is Step 1 of nausea and vomiting management. If nausea not resolved in 15 minutes, go to Step 2 prochlorperazine (COMPAZINE). Irritant. pantoprazole (PROTONIX) EC tablet 40 mg 40 mg, Oral, 2 TIMES DAILY BEFORE MEALS, First dose on Tue03/04/24 at 1630, DO NOT CRUSH. $Given 03/12/2024 8:16 AM CDT 40 mg $Given 03/11/2024 4:06 PM CDT 40 mg $Given 03/11/2024 7:45 AM CDT 40 mg pantoprazole (PROTONIX) IV push injection 40 mg 40 mg, Intravenous, 2 TIMES DAILY, First dose on Tue03/02/24 at 2100, Irritant. $Given 03/04/2024 9:00 AM CDT 40 mg $Given 03/03/2024 8:25 PM CDT 40 mg $Given 03/03/2024 9:14 AM CDT 40 mg phytonadione 5 mg in sodium chloride 0.9 % 50 mL intermittent infusion 5 mg, Intravenous, Administer over 30 Minutes, at 100 mL/hr, ONCE, On Tue03/05/24 at 1600, For 1 dose $New Bag 03/05/2024 5:46 PM CDT 5 mg 100 mL/hr polyethylene glycol (GoLYTELY) suspension 4,000 mL 4,000 mL, Oral, ONCE, On Tue03/05/24 at 1800, For 1 dose, DAY BEFORE PROCEDURE. FOR Procedure PREP ONLY One 8 ounce glass every 15 minutes until finished. $Given 03/05/2024 7:00 PM CDT 4,000 mLs polyethylene glycol (GoLYTELY) suspension 4,000 mL 4,000 mL, Oral, ONCE, On Tue03/07/24 at 1500, For 1 dose, DAY BEFORE PROCEDURE. FOR Procedure PREP ONLY One 8 ounce glass every 15 minutes until finished. $Given 03/07/2024 5:20 PM CDT 4,000 mLs senna-docusate (SENOKOT-S/PERICOLACE) 8.6-50 MG per tablet 1 tablet 1 tablet, Oral, 2 TIMES DAILY PRN, constipation, Starting on Tue03/02/24 at 1855, If no bowel movement in 24 hours, [...] 2 TIMES DAILY PRN, constipation, Starting on Tue03/02/24 at 1855, IF more than 1 constipation PRN medication [...] Oral, EVERY OTHER DAY, First dose on Tue03/04/24 at 0900, Hold for loose stools. $Given 03/12/2024 8:15 AM CDT 2 tablets $Given 03/10/2024 9:02 AM CDT 2 tablets $Given 03/04/2024 9:00 AM CDT 2 tablets sodium chloride (PF) 0.9% PF flush 10 mL 10 mL, Intracatheter, EVERY 8 HOURS, First dose on Tue03/07/24 at 1400, And Q1H PRN, to lock peripheral midline IV catheter dormant lumen. Recommended to flush Q8H each lumen even during infusions $Given 03/11/2024 11:53 PM CDT 10 mLs $Given 03/11/2024 4:09 PM CDT 10 mLs $Given 03/10/2024 3:35 PM CDT 10 mLs sodium chloride (PF) 0.9% PF flush 10-20 mL 10-20 mL, Intracatheter, EVERY 1 MIN PRN, line flush, post meds or blood draw, to flush each peripheral midline IV catheter lumen, Starting on Tue03/07/24 at 1344, 10 mL post IV meds; 20 mL post blood draw $Given 03/12/2024 11:57 AM CDT 20 m Ls sodium chloride (PF) 0.9% PF flush 3 mL 3 mL, Intracatheter, EVERY 8 HOURS, First dose on Tue03/02/24 at 1900, to lock peripheral IV dormant line $Given 03/05/2024 6:29 PM CDT 3 mLs $Given 03/03/2024 9:14 AM CDT 3 mLs $Given 03/02/2024 8:25 PM CDT 3 mLs sodium chloride (PF) 0.9% PF flush 3 mL 3 mL, Intracatheter, EVERY 1 MIN PRN, line flush, other, to ensure patency or to lock dormant line, Starting on Tue03/02/24 at 1855 $Given 03/04/2024 9:01 AM CDT 3 mLs sodium chloride (PF) 0.9% PF flush 3 mL 3 mL, Intracatheter, EVERY 1 MIN PRN, line flush, other, to ensure patency or to lock dormant line, Starting on Tue03/06/24 at 1242 sodium chloride (PF) 0.9% PF flush 3 mL 3 mL, Intracatheter, EVERY 8 HOURS, First dose on Tue03/06/24 at 1300, to lock peripheral IV dormant line $Given 03/06/2024 10:18 PM CDT 3 mLs sodium chloride (PF) 0.9% PF flush 3 mL 3 mL, Intracatheter, EVERY 1 MIN PRN, line flush, other, to ensure patency or to lock dormant line, Starting on Tue03/06/24 at 1241 sodium chloride 0.9 % infusion at 10 mL/hr, Intravenous, CONTINUOUS, IF patient on dialysis., Starting on Tue03/06/24 at 1300, Until Tue03/12/24 at 1836 $New Bag 03/06/2024 12:52 PM CDT 10 mL/hr sodium chloride 0.9% BOLUS 250 mL Intravenous, 250 mL, ONCE IN DIALYSIS/CRRT, On Tue03/05/24 at 0730, For 1 dose, For patient prime during dialysis, Dialysis $New Bag 03/05/2024 1:26 PM CDT 250 mLs sodium chloride 0.9% BOLUS 250 mL Intravenous, 250 mL, ONCE IN DIALYSIS/CRRT, On Tue03/07/24 at 1330, For 1 dose, For patient prime during dialysis, Dialysis $New Bag 03/07/2024 4:00 PM CDT 250 mLs sodium chloride 0.9% BOLUS 250 mL Intravenous, 250 mL, ONCE IN DIALYSIS/CRRT, On Tue03/09/24 at 0730, For 1 dose, For patient prime during dialysis, Dialysis $New Bag 03/09/2024 9:19 AM CDT 250 mLs sodium chloride 0.9% BOLUS 250 mL Intravenous, 250 mL, ONCE IN DIALYSIS/CRRT, On Tue03/12/24 at 0830, For 1 dose, For patient prime during dialysis, Dialysis $New Bag 03/12/2024 10:00 AM CDT 250 mLs sodium chloride 0.9% BOLUS 300 mL Hemodialysis Machine, 300 mL, ONCE, On Tue03/05/24 at 0730, For 1 dose, For Dialyzer Prime. (In Dialyzer), Dialysis $New Bag 03/05/2024 1:26 PM CDT 300 mLs sodium chloride 0.9% BOLUS 300 mL Hemodialysis Machine, 300 mL, ONCE, On Tue03/07/24 at 1330, For 1 dose, For Dialyzer Prime. (In Dialyzer), Dialysis $New Bag 03/07/2024 4:00 PM CDT 300 mLs sodium chloride 0.9% BOLUS 300 mL Hemodialysis Machine, 300 mL, ONCE, On Tue03/09/24 at 0730, For 1 dose, For Dialyzer Prime. (In Dialyzer), Dialysis $New Bag 03/09/2024 9:00 AM CDT 300 mLs sodium chloride 0.9% BOLUS 300 mL Hemodialysis Machine, 300 mL, ONCE, On Tue03/12/24 at 0830, For 1 dose, For Dialyzer Prime. (In Dialyzer), Dialysis $New Bag 03/12/2024 11:55 AM CDT 300 mLs sodium zirconium cyclosilicate (LOKELMA) packet 10 g 10 g, Oral, ONCE, On Tue03/04/24 at 1300, For 1 dose, Administer at least 2 hours before or 2 hours after other oral medications. Empty the entire contents of packet into at least 3 tablespoons of water, stir well and drink immediately $Given 03/04/2024 1:42 PM CDT 10 g Stop Heparin 60 minutes before end of treatment CONTINUOUS PRN, Starting on Tue03/05/24 at 0713, Until Tue03/05/24 at 1618, Stop Heparin 60 minutes before end of treatment, Dialysis $Given 03/05/2024 1:27 PM CDT warfarin ANTICOAGULANT (COUMADIN) tablet 5 mg 5 mg, Oral, ONCE AT 6PM, On 03/10/24 at 1800, For 1 dose $Given 03/10/2024 4:54 PM CDT 5 mg warfarin ANTICOAGULANT (COUMADIN) tablet 5 mg 5 mg, Oral, ONCE AT 6PM, On 03/11/24 at 1800, For 1 dose $Given 03/11/2024 5:36 PM CDT 5 mg warfarin ANTICOAGULANT (COUMADIN) tablet 7.5 mg 7.5 mg, Oral, ONCE AT 6PM, On 03/12/24 at 1800, For 1 dose Warfarin Dose Required Daily - Pharmacist Managed SEE ADMIN INSTRUCTIONS, Starting on 03/10/24 at 0714, Until 03/12/24 at 1836, *Note to reorder warfarin daily* Nurse to contact pharmacist if dose not ordered by 6 PM. Pharmacy Warfarin Dosing Service Patient is on Warfarin Therapy - check for daily order documented in this encounter Active and Recently Administered Medications Times are shown in CDT. Scheduled Medication Order 03/10/2024 03/11/2024 03/12/2024 - MEDICATION INSTRUCTIONS for Dialysis Patients - SEE ADMIN INSTRUCTIONS, Starting on 03/03/24 at 1048, Until 03/12/24 at 1836, Do not give any medication that may affect blood pressure or volume before dialysis. The following medications may be removed by dialysis and should be given after dialysis: renal multivitamin, calcium carbonate amLODIPine (NORVASC) tablet 5 mg 5 mg, Oral, DAILY, First dose on Tue03/04/24 at 1030 0902 ($Given - Provider: Raul Carter RN) 0845 ($Given - Provider: Raul Carter RN) 1402 ($Given - Provider: Fern Soliz RN - Comment: DIALYSIS) atorvastatin (LIPITOR) tablet 20 mg 20 mg, Oral, EVERY EVENING, First dose on Tue03/02/24 at 2000 2106 ($Given - Provider: Sid Szymanski RN) 2009 ($Given - Provider: Harriett Jacobsen RN) calcium acetate (PHOSLO) capsule 667 mg 667 mg, Oral, 3 TIMES DAILY WITH MEALS, First dose on Tue03/02/24 at 1900, Best if given with meals. 0902 ($Given - Provider: Raul Carter RN)1327 ($Given - Provider: Raul Carter RN)1653 ($Given - Provider: Raul Carter RN - Comment: Patient eating dinner now, will administer) 0719 (Canceled Entry - Provider: Raul Carter RN)0744 ($Given - Provider: Raul Carter RN - Comment: eating breakfast now)0900 (Canceled Entry - Provider: Raul Carter RN)1207 ($Given - Provider: Raul Carter RN)1736 ($Given - Provider: Raul Carter RN) 0815 ($Given - Provider: Fern Soliz RN)1401 ($Given - Provider: Fern Soliz RN - Comment: DIALYSIS)1800 (Canceled Entry - Provider: Orders Generic Provider - Comment: Automatically canceled at discontinue of medication order) insulin aspart (NovoLOG) injection (RAPID ACTING) 1-4 Units, Subcutaneous, 3 TIMES DAILY WITH MEALS, First dose (after last modification) on 03/10/24 at 0900, Correction Scale - LOW INSULIN RESISTANCE DOSING? Do Not give Correction Insulin if BG less than 140. For BG 140 - 239 give 1 unit. For BG 240 - 339 give 2 units. For BG?340 - 439?give 3 units For BG greater than or equal to 440 give 4 units Check blood glucose Q4H and administer based on blood glucose. Notify provider if glucose greater than??or equal to 350 mg/dL after administration of correction dose. 0859 (Not Given - Provider: Raul Carter RN - Reason: Order parameters not met)1325 (Not Given - Provider: Raul Carter RN - Reason: Order parameters not met)1652 ($Given - Provider: Raul Carter RN - Comment: patient eating dinner now, will cover) 0719 (Canceled Entry - Provider: Raul Carter RN)0900 (Not Given - Provider: Raul Carter RN - Reason: Order parameters not met)1208 (Not Given - Provider: Raul Carter RN - Reason: Order parameters not met)1740 ($Given - Provider: Raul Carter RN) 0804 (Not Given - Provider: Fern Soliz RN - Reason: Contraindicated)1206 (Not Given - Provider: Fern Soliz RN - Reason: Contraindicated)1800 (Canceled Entry - Provider: Orders Generic Provider - Comment: Automatically canceled at discontinue of medication order) metoprolol tartrate (LOPRESSOR) tablet 100 mg 100 mg, Oral, EVERY MORNING, First dose on 03/03/24 at 0900 0902 ($Given - Provider: Raul Carter RN) 0845 ($Given - Provider: Raul Carter RN) 1402 ($Given - Provider: Fern Soliz RN - Comment: DIALYSIS) multivitamin RENAL (TRIPHROCAPS) capsule Oral, EVERY EVENING, First dose on 03/02/24 at 2000 2106 ($Given - Provider: Sid Szymanski RN) 2009 ($Given - Provider: Harriett Jacobsen RN) No heparin via hemodialysis machine (COMPLETED) ONCE, 1 dose, On Tue03/12/24 at 0830, Normal saline flushes may be used to maintain patency of circuit., Dialysis 1157 ($Given - Provider: Melissa Drake RN) pantoprazole (PROTONIX) EC tablet 40 mg 40 mg, Oral, 2 TIMES DAILY BEFORE MEALS, First dose on Tue03/04/24 at 1630, DO NOT CRUSH. 0902 ($Given - Provider: Raul Carter RN)1535 ($Given - Provider: Raul Carter RN) 0745 ($Given - Provider: Raul Carter RN)1606 ($Given - Provider: Raul Carter RN) 0816 ($Given - Provider: Fern Soliz RN)1630 (Canceled Entry - Provider: Orders Generic Provider - Comment: Automatically canceled at discontinue of medication order) sennosides (SENOKOT) tablet 2 tablet 2 tablet, Oral, EVERY OTHER DAY, First dose on Tue03/04/24 at 0900, Hold for loose stools. 0902 ($Given - Provider: Raul Carter RN) 0815 ($Given - Provider: Fern Soliz, LINDA) sodium chloride (PF) 0.9% PF flush 10 mL 10 mL, Intracatheter, EVERY 8 HOURS, First dose on Tue03/07/24 at 1400, And Q1H PRN, to lock peripheral midline IV catheter dormant lumen. Recommended to flush Q8H each lumen even during infusions 0520 (Not Given - Provider: Sid Szymanski RN - Reason: IV Infusing)0906 (Not Given - Provider: Raul Carter RN - Reason: IV Infusing)1535 ($Given - Provider: Raul Carter RN)2352 (Not Given - Provider: Harriett Jacobsen RN - Reason: IV Infusing) 0932 (Canceled Entry - Provider: Raul Carter RN)1609 ($Given - Provider: Raul Carter RN)2353 ($Given - Provider: Harriett Jacobsen RN) 1408 (Not Given - Provider: Fern Soliz RN - Reason: Other - Comment: discharging home)1600 (Canceled Entry - Provider: Orders Generic Provider - Comment: Automatically canceled at discontinue of medication order) sodium chloride 0.9% BOLUS 250 mL (COMPLETED) Intravenous, 250 mL, ONCE IN DIALYSIS/CRRT, On Tue03/12/24 at 0830, For 1 dose, For patient prime during dialysis, Dialysis 1000 ($New Bag - Provider: Melissa Drake RN) sodium chloride 0.9% BOLUS 300 mL (COMPLETED) Hemodialysis Machine, 300 mL, ONCE, On Tue03/12/24 at 0830, For 1 dose, For Dialyzer Prime. (In Dialyzer), Dialysis 1155 ($New Bag - Provider: Melissa Drake, LINDA) warfarin ANTICOAGULANT (COUMADIN) tablet 5 mg (COMPLETED) 5 mg, Oral, ONCE AT 6PM, On 03/10/24 at 1800, For 1 dose 1654 ($Given - Provider: Raul Carter RN - Comment: Providing now at patient request) 0719 (Canceled Entry - Provider: Raul Carter RN) warfarin ANTICOAGULANT (COUMADIN) tablet 5 mg (COMPLETED) 5 mg, Oral, ONCE AT 6PM, On 03/11/24 at 1800, For 1 dose 1736 ($Given - Provider: Raul Carter RN) warfarin ANTICOAGULANT (COUMADIN) tablet 7.5 mg 7.5 mg, Oral, ONCE AT 6PM, On 03/12/24 at 1800, For 1 dose 1800 (Canceled Entry - Provider: Orders Generic Provider - Comment: Automatically canceled at discontinue of medication order) Warfarin Dose Required Daily - Pharmacist Managed SEE ADMIN INSTRUCTIONS, Starting on Tue03/10/24 at 0714, Until Tue03/12/24 at 1836, *Note to reorder warfarin daily* Nurse to contact pharmacist if dose not ordered by 6 PM. Pharmacy Warfarin Dosing Service Patient is on Warfarin Therapy - check for daily order Continuous Medication Order 03/10/2024 03/11/2024 03/12/2024 sodium chloride 0.9 % infusion at 10 mL/hr, Intravenous, CONTINUOUS, IF patient on dialysis., Starting on Tue03/06/24 at 1300, Until Tue03/12/24 at 1836 PRN Medication Order 03/10/2024 03/11/2024 03/12/2024 acetaminophen (TYLENOL) Suppository 650 mg(Linked Group 1) 650 mg, Rectal, EVERY 4 HOURS PRN, mild pain, other, and adjunct with moderate or severe pain or per patient request, Starting on Tue03/02/24 at 1855, Alternate with ibuprofen if ordered. Maximum acetaminophen dose from all sources = 75 mg/kg/day not to exceed 4 grams/day. acetaminophen (TYLENOL) tablet 650 mg(Linked Group 1) 650 mg, Oral, EVERY 4 HOURS PRN, mild pain, other, and adjunct with moderate or severe pain or per patient request, Starting on Tue03/02/24 at 1855, Alternate with ibuprofen if ordered. Maximum acetaminophen dose from all sources = 75 mg/kg/day not to exceed 4 grams/day. calcium acetate (PHOSLO) capsule 667 mg 667 mg, Oral, WITH SNACKS OR SUPPLEMENTS, other, Snack, Starting on Tue03/02/24 at 1855, Best if given with meals. calcium carbonate (TUMS) chewable tablet 1,000 mg 1,000 mg, Oral, 4 TIMES DAILY PRN, heartburn, Starting on Tue03/02/24 at 1855 dextrose 50 % injection 25-50 mL(Linked Group 2) 25-50 mL, Intravenous, EVERY 15 MIN PRN, low blood sugar, Administer over 1-5 Minutes, Starting on Tue03/02/24 at 1855, Use if have IV access, BG less [...] mg/dL x 2 consecutive 15 minute checks. Vesicant. glucagon injection 1 mg(Linked Group 2) 1 mg, Subcutaneous, EVERY 15 MIN PRN, low blood sugar, May repeat x 1 only, Starting on Tue03/02/24 at 1855, May give SQ or IM. ONLY use glucagon IF patient has NO IV access AND is UNABLE to swallow AND blood glucose is LESS than or EQUAL to 50 mg/dL. glucose gel 15-30 g(Linked Group 2) 15-30 g, Oral, EVERY 15 MIN PRN, low blood sugar, Starting on Tue03/02/24 at 1855, Give first dose for initial blood glucose [...] Document juice on I and O flowsheet. lidocaine (LMX4) cream Topical, EVERY 1 HOUR PRN, pain, with VAD insertion, Starting on Tue03/02/24 at 1855, Apply at least 30 minutes prior to [...] mild pain with VAD insertion, Starting on Tue03/02/24 at 1855, MAX dose 1 mL subcutaneous OR intradermal along the side of the vein in divided doses as needed for VAD insertion. Do NOT give if patient has a history of allergy to any local anesthetic or any anabell product. Do NOT use both lidocaine intradermal/subcutaneous injection and the lidocaine cream on the same site. naloxone (NARCAN) injection 0.2 mg(Linked Group 3) 0.2 mg, Intravenous, EVERY 2 MIN PRN, opioid reversal, Starting on Tue03/02/24 at 192, Administer intravenous route when available and notify [...] doses. naloxone (NARCAN) injection 0.2 mg(Linked Group 3) 0.2 mg, Intramuscular, EVERY 2 MIN PRN, opioid reversal, Starting on Tue03/02/24 at 1921, Administer intramuscular if an intravenous route is [...] doses. naloxone (NARCAN) injection 0.4 mg(Linked Group 3) 0.4 mg, Intravenous, EVERY 2 MIN PRN, opioid reversal, Starting on Tue03/02/24 at 1922, Administer intravenous route when available and notify [...] doses. naloxone (NARCAN) injection 0.4 mg(Linked Group 3) 0.4 mg, Intramuscular, EVERY 2 MIN PRN, opioid reversal, Starting on Tue03/02/24 at 1922, Administer intramuscular if an intravenous route is [...] not improved after 4 naloxone doses. ondansetron (ZOFRAN ODT) ODT tab 4 mg(Linked Group 4) 4 mg, Oral, EVERY 6 HOURS PRN, nausea, vomiting, Starting on Tue03/02/24 at 1855, This is Step 1 of nausea and vomiting management. If nausea not resolved in 15 minutes, go to Step 2 prochlorperazine (COMPAZINE). With dry hands, peel back foil backing and gently remove tablet. Do not push oral disintegrating tablet through foil backing. Administer immediately on tongue and oral disintegrating tablet dissolves in seconds, then swallow with saliva. Liquid not required. ondansetron (ZOFRAN) injection 4 mg(Linked Group 4) 4 mg, Intravenous, EVERY 6 HOURS PRN, nausea, vomiting, Administer over 2-5 Minutes, Starting on Tue03/02/24 at 1855, Give IF patient unable to tolerate oral medication. This is Step 1 of nausea and vomiting management. If nausea not resolved in 15 minutes, go to Step 2 prochlorperazine (COMPAZINE). Irritant. senna-docusate (SENOKOT-S/PERICOLACE) 8.6-50 MG per tablet 1 tablet(Linked Group 5) 1 tablet, Oral, 2 TIMES DAILY PRN, constipation, Starting on Tue03/02/24 at 1855, If no bowel movement in 24 hours, [...] 8.6-50 MG per tablet 2 tablet(Linked Group 5) 2 tablet, Oral, 2 TIMES DAILY PRN, constipation, Starting on Tue03/02/24 at 1855, IF more than 1 constipation PRN medication is ordered, administer step-jane as indicated, moving to the next step ONLY if prior step ineffective. Step 1: senna-docusate (SENOKOT-S; PERICOLACE) OR bisacodyl (DULCOLAX) EC tablet Step 2: polyethylene glycol (MIRALAX/GLYCOLAX) Step 3: bisacodyl (DULCOLAX) suppository Step 4: enema Hold for loose stools. sodium chloride (PF) 0.9% PF flush 10-20 mL 10-20 mL, Intracatheter, EVERY 1 MIN PRN, line flush, post meds or blood draw, to flush each peripheral midline IV catheter lumen, Starting on Tue03/07/24 at 1344, 10 mL post IV meds; 20 mL post blood draw 1157 ($Given - Provi norah: Melissa Drake RN) sodium chloride (PF) 0.9% PF flush 3 mL 3 mL, Intracatheter, EVERY 1 MIN PRN, line flush, other, to ensure patency or to lock dormant line, Starting on Tue03/02/24 at 1855 sodium chloride (PF) 0.9% PF flush 3 mL 3 mL, Intracatheter, EVERY 1 MIN PRN, line flush, other, to ensure patency or to lock dormant line, Starting on Tue03/06/24 at 1242 sodium chloride (PF) 0.9% PF flush 3 mL 3 mL, Intracatheter, EVERY 1 MIN PRN, line flush, other, to ensure patency or to lock dormant line, Starting on Tue03/06/24 at 1241 Linked Groups Order Group 1: acetaminophen (TYLENOL) tablet 650 mgJump to med 650 mg, Oral, EVERY 4 HOURS PRN, mild pain, other, and adjunct with moderate or severe pain or per patient request, Starting on Tue03/02/24 at 1855, Alternate with ibuprofen if ordered. Maximum acetaminophen dose from all sources = 75 mg/kg/day not to exceed 4 grams/day. Or acetaminophen (TYLENOL) Suppository 650 mgJump to med 650 mg, Rectal, EVERY 4 HOURS PRN, mild pain, other, and adjunct with moderate or severe pain or per patient request, Starting on Tue03/02/24 at 1855, Alternate with ibuprofen if ordered. Maximum acetaminophen dose from all sources = 75 mg/kg/day not to exceed 4 grams/day. Group 2: glucose gel 15-30 gJump to med 15-30 g, Oral, EVERY 15 MIN PRN, low blood sugar, Starting on Tue03/02/24 at 1855, Give first dose for initial blood glucose [...] sugar, Administer over 1-5 Minutes, Starting on Tue03/02/24 at 1855, Use if have IV access, BG less [...] mg/dL x 2 consecutive 15 minute checks. Vesicant. Or glucagon injection 1 mgJump to med 1 mg, Subcutaneous, EVERY 15 MIN PRN, low blood sugar, May repeat x 1 only, Starting on Tue03/02/24 at 1855, May give SQ or IM. ONLY use glucagon IF patient has NO IV access AND is UNABLE to swallow AND blood glucose is LESS than or EQUAL to 50 mg/dL. Group 3: naloxone (NARCAN) injection 0.2 mgJump to med 0.2 mg, Intravenous, EVERY 2 MIN PRN, opioid reversal, Starting on Tue03/02/24 at 1922, Administer intravenous route when available and notify [...] 2 MIN PRN, opioid reversal, Starting on Tue03/02/24 at 1922, Administer intravenous route when available and notify [...] 2 MIN PRN, opioid reversal, Starting on Tue03/02/24 at 1922, Administer intramuscular if an intravenous route is [...] 2 MIN PRN, opioid reversal, Starting on Tue03/02/24 at 1922, Administer intramuscular if an intravenous route is [...] not improved after 4 naloxone doses. Group 4: ondansetron (ZOFRAN ODT) ODT tab 4 mgJump to med 4 mg, Oral, EVERY 6 HOURS PRN, nausea, vomiting, Starting on Tue03/02/24 at 1855, This is Step 1 of nausea and vomiting management. If nausea not resolved in 15 minutes, go to Step 2 prochlorperazine (COMPAZINE). With dry hands, peel back foil backing and gently remove tablet. Do not push oral disintegrating tablet through foil backing. Administer immediately on tongue and oral disintegrating tablet dissolves in seconds, then swallow with saliva. Liquid not required. Or ondansetron (ZOFRAN) injection 4 mgJump to med 4 mg, Intravenous, EVERY 6 HOURS PRN, nausea, vomiting, Administer over 2-5 Minutes, Starting on Tue03/02/24 at 1855, Give IF patient unable to tolerate oral medication. This is Step 1 of nausea and vomiting management. If nausea not resolved in 15 minutes, go to Step 2 prochlorperazine (COMPAZINE). Irritant. Group 5: senna-docusate (SENOKOT-S/PERICOLACE) 8.6-50 MG per tablet 1 tabletJump to med 1 tablet, Oral, 2 TIMES DAILY PRN, constipation, Starting on Tue03/02/24 at 1855, If no bowel movement in 24 hours, [...] 2 TIMES DAILY PRN, constipation, Starting on Tue03/02/24 at 1855, IF more than 1 constipation PRN medication is ordered, administer step-jane as indicated, moving to the next step ONLY if prior step ineffective. Step 1: senna-docusate (SENOKOT-S; PERICOLACE) OR bisacodyl (DULCOLAX) EC tablet Step 2: polyethylene glycol (MIRALAX/GLYCOLAX) Step 3: bisacodyl (DULCOLAX) suppository Step 4: enema Hold for loose stools. 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
--- OUTSIDE RECORDS SUMMARY | 2024-05-24 23:47 | XMS_ITS | Encounter Summary ---
Author Organization [facility] Address [address] [place] [address] Care Team Providers Care Metalsmith Apprentice Name Role Phone Cornell Butt Primary Care Provider [phone] Reason for Visit * Reason Comments Generalized Weakness * Auth/Cert (Routine) Specialty Diagnoses / Procedures Referred By Contac t Referred To Contact Med Surg Diagnoses Black stool Anemia, unspecified type Anemia, unspecified type Black stool 5 Medical Surgical [address] [place] [address] Referral ID Status Reason Start Date Expiration Date Visits Re quested Visits Authorized [id number] 1 1 Encounter Details Date Type Department Care Team (Late st Contact Info) Description 03/08/2024 12:20 PM CDT - 03/08/2024 12:50 PM CDT Surgery [facility] Endoscopy [place] [address] [place] [address] Eileen Earl MD [facility] [address] [place] [id number] Colonoscopy with polypectomy by cold biopsy forceps Surgery Details Date/Time Status Location OR Service Patient Class Case Class Case Type Trauma Case? 03/08/24 12:20 PM Posted GI GI B Gastroenterology Inpatient NEST 5 - Semi-Urg ent (within 48hrs) Panel 1 Procedure LRB Anes Op Region Wound Class Comments Colonoscopy with polypectomy by cold biopsy forceps N/A Moderate Sedation Rectum II-Clean Contaminated Surgeon Surgeon Role Service Panel Eileen Earl MD Primary Gastroenterology 1 documented in this [...] file Gender Identity Male 12/05/2017 10:39 AM RATE SETTER Sexual Orientation Not on file documented as of this encounter Last Filed Vital Signs Vital Sign Reading Time Taken Comments Blood Pressure 129/76 03/08/2024 12:50 PM CDT Pulse 68 03/08/2024 12:50 PM CDT Temperature 36.5 ??C (97.7 ??F) 03/08/2024 1 0:12 AM CDT Respiratory Rate 16 03/08/2024 12:5 0 PM CDT Oxygen Saturation 90% 03/08/2024 12: 50 PM CDT Inhaled Oxygen Concentration - - Weight 84.3 kg (185 lb 13.6 oz) 03/05/2024 5:30 PM CDT Height - - Body Mass Index 31.9 02/24/2024 1:53 PM CDT documented in this encounter Discharge Summaries * Nicolasa Luke DO - 03/12/2024 9:23 AM CDT Images from the original note were not included. [facility] Hospitalist Discharge Summary Date of [...] the patient was re cently hospitalized at [facility] from 02/23 to 02/25 for the treatment [...] Full Code Time Spent on this Encounter INicolasa DO, personally saw the patient today and spent greater than 30 minutes discharging this patient. Nicolasa Luke DO [place] [address] MEDICAL SURGICAL [address] [facility] [address] Physical Exam Vital Signs: Temp: 98.4 ??F [...] US UPPER EXTREMITY VENOUS DUPLEX RIGHT LOCATION: [facility] DATE: 03/07/2024 INDICATION: Swelling, looking for DVT [...] EXAM: XR CHEST PORT 1 VIEW LOCATION: [facility] DATE: 03/11/2024 INDICATION: Shortness of breath COMPARISON: [...] Refills: 3 Associated Diagnoses: Mixed hyperlipidemia B Dxklsur-K-Weeal Acid (WESCAPS PO) Take 1 capsule by [...] sent through Care Everywhere. * Colon Polyps (Chilean) documented in this encounter Medications at Time of Discharge Medication Sig Dispensed Refills Start Date End Date B Yhjcrfo-S-Eyccz Acid (WESCAPS PO) Take 1 capsule by [...] Date: 03/12/2024 Discharge Disposition: Home Discharge Services: TRAVELING REPRESENTATIVE Discharge DME: None Discharge Transportation: agency, other (see comments) ([facility]) Private pay costs discussed: transportation costs Education Provided on the Discharge Plan: yes Persons Notified of Discharge Plans: [facility] Patient/Family in Agreement with the Plan: yes Handoff Referral Completed: No Additional Information: Medically ready for discharge home today with mother and Aunt. Contacted [facility] to confirm that transportation needed to be set up. She stated they use [facility] for his dialysis appointments. Called [facility] [employer] and they are unable to provide transportation on short notice and they would not have openings today. Discussed with patients Aunt and she is agreeable to having set up [facility] transport and is aware of the potential cost if insurance does not cover. Contacted [facility] and transport set up for [phone]. Aunt will be at home to accept and she confirms a ramp in the rear of the home. Lynne Cárdenas STRATEGIC DEVELOPMENT MANAGER [employer] Counselor [facility] [phone] * Lynne Cárdenas RN - 03/12/2024 1:41 PM CDT Care Management Discharge Note Discharge Date: 03/12/2024 Discharge Disposition: Home Discharge Services: TRAVELING REPRESENTATIVE Discharge DME: None Discharge Transportation: agency, other (see comments) ([facility] [place]) Private pay costs discussed: Not applicable Does [...] reach her or aunt who is patients TRAVELING REPRESENTATIVE. Left voice mail. Lynne Cárdenas RN BSN [employer] Counselor [facility] [phone] * Melissa Dewey RN - 03/12/2024 12:36 [...] checked every 4 hours. Outpatient Dialysis at [facility]. Patient repositioned every 2 hours during the [...] Interval History: Dialysis run parameters reviewed with principal java software engineer at patient bedside. Seen on run Resting [...] Data: Recent Labs Lab 03/12/24 0751 03/12/24 06 NA -- 123* POTASSIUM -- 4.9 CHLORIDE -- 87* CO2 -- 23 ANIONGAP -- 13 GLC 92 77 77 BUN -- 48.4* CR -- 7.98* GFRESTIMATED -- 7* JON -- 8.3* Recent Labs Lab 03/12/24 0603/11/24 0703 POTASSIUM 4.9 4.8 Recent Labs Lab 03/12/24 0606 03/11/24 0703 03/10/24 0746 03/09/24 0549 ALBUMIN 3.0* 2.6* 2.6* 2.8* Recent Labs Lab 03/12/24 0606 03/11/24 1810 03/11/24 0703 03/10/24 1800 03/10/24 0746 03/09/24 0912 03/09/24 0549 PHOS 3.0 -- 2.9 -- 3.0 -- 3.9 HGB 8.1* 8.8* 7.8* 7.0* 7.0* < > 7.5* < > = values in this interval not displayed. Wojciech Holman MD [facility] - Nephrology [phone] * Jose Enrique Naylor MD - 03/11/2024 10:24 AM CDT Chart reviewed. Labs and vitals reviewed. Sodium better at 126. Potassium okay. No indication for dialysis today. Noted an episode of vomiting and TREE INSPECTOR. Chest x-ray appears clear without pulmonary congestion [...] interval not displayed. Jose Enrique Naylor MD [facility] - Nephrology [phone] * Nicolasa Luke DO - 03/11/2024 9:13 AM CDT [facility] Medicine Progress Note - Hospitalist [...] the patient was re cently hospitalized at [facility] from 02/23 to 02/25 for the treatment [...] 1 unit with hgb this AM 7.8 -TREE INSPECTOR overnight had episode of emesis, CPAP was [...] of 03/03. Appeared to be asymptomatic - TREE INSPECTOR called for EGD 03/06 because of hypoglycemia. [...] with Mother and Aunt (who is his TRAVELING REPRESENTATIVE) Hx of CVA Legally Blind Hypertension Hyperlipidemia [...] home with help/services Nicolasa Luke DO Hospitalist [facility] Securely message with Jakob (more info) Text page via [facility] Paging/Directory Physical Exam Vital Signs: Temp: 98.7 [...] Jacobsen RN - 03/11/2024 3:23 AM CDT TREE INSPECTOR called. Patient had received 1 unit of blood earlier in the evening. Had cpap put on for the night. staffing program manager and press writer came into the room and cpap mask was off and patient was on his left side and had vomited. Emesis was yellow in color with some food chunks. Vomit was not evident in the cpap mask. Respiratory was paged and came to see the patient at the bedside. Cross cover was also paged. TREE INSPECTOR was then called incase patient had aspirated on vomit. Cpap was not placed back on patient after emesis episode. * Portia Domingo RT - 03/11/2024 3:10 AM CDT Attended TREE INSPECTOR that was called due to pt vomiting. Pt was wearing CPAP(ResMed) via mask. Mask was removed prior to vomiting. Pt was placed on couple liters of oxygen briefly and taken off. Sats good. We will try to stay off CPAP for the rest of the shift. RT Dewayne on 03/11/2024 at 3:21 AM * Addis Zhang MD, MD - 03/11/2024 3:07 AM CDT Responded to TREE INSPECTOR called for an episode of emesis. Patient [...] pneumonia. CXR - no infiltrate. * Portia Domingo RT - 03/11/2024 12:30 AM CDT A [...] Romero DO - 03/10/2024 10:27 AM CDT [facility] Hospitalist Progress Note Name: Herminio [...] note, the patient was recently hospitalized at [facility] from 02/23 to 02/25 for the treatment [...] for recheck this evening. Updated mother Arianna Flynn/TRAVELING REPRESENTATIVE Thelma via phone. All questions answered. Problem [...] of 03/03. Appeared to be asymptomatic - TREE INSPECTOR called for EGD 03/06 because of hypoglycemia. [...] with Mother and Aunt (who is his TRAVELING REPRESENTATIVE) Hx of CVA Legally Blind Hypertension Hyperlipidemia [...] Eileen Earl MD 5 mg at 03/10/24 0902 atorvastatin (LIPITOR) tablet 20 mg 20 mg Oral QPM Eileen Earl MD 20 mg at 03/09/24 191 calcium acetate (PHOSLO) capsule 667 mg 667 mg Oral TID w/meals Eileen Earl MD 667 mg at 03/10/24 09 insulin aspart (NovoLOG) injection (RAPID ACTING) 1-4 Units Subcutaneous TID w/meals Aashish Romero, metoprolol tartrate (LOPRESSOR) tablet 100 mg 100 mg Oral QAM Eileen Earl MD 100 mg at 03/10/24 09 multivitamin RENAL (TRIPHROCAPS) capsule Oral QPM Earl, Eileen Jae, MD 1 mg at 03/09/241913 pantoprazole (PROTONIX) [...] the past 24 hour(s)). Aashish Romero DO [facility] Hospitalist [address] [address] Securely message with [employer] (more info) Text page via [employer] Paging/Directory 03/10/2024 * Portia Domingo RT - 03/10/2024 2:06 AM CDT A [...] given low sodium Jose Enrique Naylor MD [facility] - Nephrology [phone] Interval History : Seen / examined on [...] and thrill Labs: All labs reviewed by me Electrolytes/Renal - Recent Labs Lab Test 03/09/24 [...] Labs Lab Test 03/09/24 0912 03/09/24 0549 03/08/245 03/07/24 0104 03/06/24 1628 03/05/24 1212 03/05/24 [...] ALT -- -- -- -- -- 15 25 AST -- -- -- -- -- 25 PROTTOTAL -- -- -- -- -- [...] Eileen Earl MD 5 mg at 03/09/24 0806 atorvastatin (LIPITOR) tablet 20 mg 20 mg Oral QPM Eileen Earl MD 20 mg at 03/08/24 204 calcium acetate (PHOSLO) capsule 667 mg 667 mg Oral TID w/meals Eileen Earl MD 667 mg at 03/09/24 0806 insulin aspart (NovoLOG) injection (RAPID ACTING) 1-4 Units Subcutaneous Q4H Antonino Cheek MD metoprolol tartrate (LOPRESSOR) tablet 100 mg 100 mg Oral QAM Eileen Earl MD 100 mg at 03/09/24 0806 multivitamin RENAL (TRIPHROCAPS) capsule Oral QPM Eileen Earl MD 1 mg at 03/08/242045 No heparin via hemodialysis machine Does not [...] interval not displayed. Recent Labs Lab Test 03/09/24 0549 03/08/2462403/07/24 0621 POTASSIUM 5.5* 4.7 5.5* CHLORIDE 86* 89* 78* CO2 25 BUN 34.6* 30.2* 55.9* ANIONGAP 15 13 16* Recent Labs Lab Test 03/09/24 0912 03/09/24 0549 03/08/24 0625 03/07/24 0621 03/06/24 0654 03/05/24 0735 03/04/24 0645 03/02/24 1356 ALBUMIN -- 2.8* 2.8* 2.8* < > 2.7* 2.9* 3.3* BILITOTAL 0.5 -- -- -- -- 0.4 0.5 0.2 ALT -- -- -- -- -- 25 AST -- -- -- -- -- 22 28 25 < > = values in this interval not displayed. ASSESSMENT/ PLAN Herminio Victor is a 58 [...] reviewing documentation/test results, and video recorder mechanic. Discussed with Dr. Earl. Will no longer follow. Please call with questions or change in condition. Ebony Cheek PA-C [facility] ( [facility]) * Cintia Valadez RN - 03/09/2024 10:10 [...] to treatment See Adult Hemodialysis flowsheet in [employer] for further details and post assessment. Machine [...] Cheek MD - 03/09/2024 8:28 AM CDT [facility] Medicine Progress Note - Hospitalist Service [...] the patient was re cently hospitalized at [facility] from 02/23 to 02/25 for the treatment [...] of 03/03. Appeared to be asymptomatic - TREE INSPECTOR called for EGD 03/06 because of hypoglycemia. [...] with Mother and Aunt (who is his TRAVELING REPRESENTATIVE) Hx of CVA Legally Blind Hypertension Hyperlipidemia [...] 2-4 Days Antonino Cheek MD Hospitalist Service [facility] Securely message with [employer] (more info) Text page via [facility] Paging/Directory Interval History Denies any symptoms today. [...] interval not displayed. Jose Enrique Naylor MD [facility] - Nephrology [phone] * Antonino Cheek MD - 03/08/2024 8:22 AM CDT [facility] Medicine Progress Note - Hospitalist Service [...] the patient was re cently hospitalized at [facility] from 02/23 to 02/25 for the treatment [...] of 03/03. Appeared to be asymptomatic - TREE INSPECTOR called for EGD 03/06 because of hypoglycemia. [...] with Mother and Aunt (who is his TRAVELING REPRESENTATIVE) Hx of CVA Legally Blind Hypertension Hyperlipidemia [...] 2-4 Days Antonino Cheek MD Hospitalist Service [facility] Securely message with [employer] (more info) Text page via [facility] Paging/Directory Interval History Patient denies chest pain [...] Pulse: 81 Resp: 18 SpO2: 91 % M5Aqfalk: Nasal cannula Oxygen Delivery: 2 LPM Weight: [...] US UPPER EXTREMITY VENOUS DUPLEX RIGHT LOCATION: [facility] DATE: 03/07/2024 INDICATION: Swelling, looking for DVT [...] from the proximal to distal forearm. * Melissa Dewey RN - 03/07/2024 4:55 PM CDT Potassium [...] checked every 4 hours. Outpatient Dialysis at [facility] Patient repositioned every 2 hours during the treatment. Pre & Post treatment report called to Anusha Lindsey RN Please note: Please remove patient dressing on AVF and AVG needle sites 24 hours after dialysis. Ifleaking occurs please apply a Band-Aid. Melissa Newton RN * Antonino Cheke MD - 03/07/2024 4:12 PM CDT [facility] Medicine Progress Note - Hospitalist [...] the patient was re cently hospitalized at [facility] from 02/23 to 02/25 for the treatment [...] of 03/03. Appeared to be asymptomatic - TREE INSPECTOR called for EGD 03/06 because of hypoglycemia. [...] with Mother and Aunt (who is his TRAVELING REPRESENTATIVE) Hx of CVA Legally Blind Hypertension Hyperlipidemia [...] 2-4 Days Antonino Cheek MD Hospitalist Service [facility] Securely message with [employer] (more info) Text page via [facility] Paging/Directory Interval History Patient denies symptoms, sleeping [...] given low sodium Jose Enrique Naylor MD [facility] - Nephrology [phone] Interval History : Seen / examined. No [...] and thrill Labs: All labs reviewed by mi Electrolytes/Renal - Recent Labs Lab Test 03/07/24 [...] -- 0.4 0.5 0.2 ALT -- -- 15 19 25 AST -- -- 22 28 25 PROTTOTAL -- -- 5.4* 5.5* 6.4 ALBUMIN [...] 1252 Jose Enrique Naylor MD * Mackenzie Cheek, BESSIE - 03/07/2024 10:56 AM CDT Images from [...] not displayed. Recent Labs Lab Test 03/07/24 0603/06/24 1628 03/06/24 0654 POTASSIUM 5.5* 5.1 4.5 CHLORIDE 78* 82* 83* CO2 BUN 55.9* 50.9* 47.9* ANIONGAP 16* 15 14 Recent Labs Lab Test 03/07/2462003/06/24 0654 03/05/24 0735 03/04/24 0645 03/02/24 1356 [...] reviewing documentation/test results, and video recorder mechanic. Discussed with Dr. Janette Cheek PA-C [facility] ( [facility]) * Byron Camarillo RN - 03/07/2024 5:51 [...] diet. Patient is due for dialysis tomorrow. [facility] unable to complete colonoscopy today due to lack of preparation. I will discuss with them the convenience to wait 1 more day before colonoscopy. * Megan Salazar - 03/06/2024 4:20 PM CDT [facility] Progress Note MS 5 Responded to patient's room regarding overhead Adult Rapid Response CODE. Patient receiving cares. No family present. SHS not needed. SHS remains available. Rev. Edna Hameed.Div. Staff Coagulating Bath Operator * Janine Irvin RN - 03/06/2024 3:35 PM CDT Notified MD at 1535 PM regarding low BG in PACU . BG 63, pt asymptomatic. Pt given 240cc apple juice, he wanted more so was given additional 240cc. BG recheck 64 Spoke with: Dr Skinner Orders were not obtained. Comments: no new orders. Ok to go back to room * Hediy Cormier RN - 03/06/2024 1:08 PM CDT [...] use as able. Jose Enrique Naylor MD [facility] - Nephrology [phone] * Antonino Cheek MD - 03/06/2024 7:30 AM CDT [facility] Medicine Progress Note - Hospitalist [...] the patient was re cently hospitalized at [facility] from 02/23 to 02/25 for the treatment [...] with Mother and Aunt (who is his TRAVELING REPRESENTATIVE) Hx of CVA Legally Blind Hypertension Hyperlipidemia [...] 2-4 Days Antonino Cheek MD Hospitalist Service [facility] Securely message with [employer] (more info) Text page via [facility] Paging/Directory Interval History Patient denies symptoms but [...] Pulse: 89 Resp: 18 SpO2: 98 % [id number]: BiPAP/CPAP Weight: 185 lbs 13.56 oz GEN: [...] AVF +T&B. Plan: Next run per nephro. Mo Garvin, LUISN, RN * Paul Rasmussen MD - 03/05/2024 [...] Paged to Dr. Cheek. Paul Rasmussen MD [facility] * Jose Enrique Naylor MD [...] given low sodium Jose Enrique Naylor MD [facility] - Nephrology [phone] Interval History : Seen / examined. Appears [...] and thrill Labs: All labs reviewed by mi Electrolytes/Renal - Recent Labs Lab Test 03/05/24 [...] QPM Ron Tripathi MD 1 mg at 03/04/24 2118 No heparin via hemodialysis machine Does not [...] Cheek MD - 03/05/2024 8:33 AM CDT [facility] Medicine Progress Note - Hospitalist Service [...] the patient was re cently hospitalized at [facility] from 02/23 to 02/25 for the treatment [...] with Mother and Aunt (who is his TRAVELING REPRESENTATIVE) Hx of CVA Legally Blind Hypertension Hyperlipidemia [...] 2-4 Days Antonino Cheek MD Hospitalist Service [facility] Securely message with [employer] (more info) Text page via [facility] Paging/Directory Interval History Patient is not significantly [...] the pt's current respiratory status and needs. Graham Enciso, RT on 03/04/2024 at 11:21 PM * Paul [...] Recheck INR tomorrow AM. Paul Rasmussen MD [facility] - [facility] [phone] SUBJECTIVE: Denies pain or new symptoms OBJECTIVE: [...] Romero DO - 03/04/2024 10:01 AM CDT [facility] Hospitalist Progress Note Name: Herminio Victor Provider: [...] note, the patient was recently hospitalized at [facility] from 02/23 to 02/25 for the treatment [...] improves with food today. Updated Aunt and TRAVELING REPRESENTATIVE Thelma via phone. All questions answered. Problem [...] showing small esophageal varices ESRD on HD (MW) - Appreciate Nephrology management of HD Type [...] with Mother and Aunt (who is his TRAVELING REPRESENTATIVE) Hx of CVA Legally Blind Hypertension Hyperlipidemia [...] Aashish Romero DO 40 mL/hr at 03/04/24 0901 Rate Verify at 03/04/24 0901 Current Facility-Administered Medications Medication Dose Route Frequency [...] BID Ron Tripathi MD 40 mg at 03/04/24 0900 sennosides [...] the past 24 hour(s)). Aashish Romero DO [facility] Hospitalist [address] [facility] [place] [address] Securely message with [employer] info) Text page via [facility] Paging/Directory 03/04/2024 * Douglas Zarate RT - 03/03/2024 10:20 PM CDT Auto CPAP 515 @ 21% was applied to the pt via the mask for NOC use. The bridge of the nose looks good and remains intact. Pt is tolerating it well. Will continue to monitor and assess the pt's current respiratory status and needs. RT Mariluz on 03/03/2024 at 10:21 PM * Nick, Aashish Avina DO - 03/03/2024 12:46 PM CDT [facility] Hospitalist Progress Note Name: Herminio Victor Provider: [...] note, the patient was recently hospitalized at [facility] from 02/23 to 02/25 for the treatment [...] with Mother and Aunt (who is his TRAVELING REPRESENTATIVE) Hx of CVA Legally Blind Hypertension Hyperlipidemia [...] the past 24 hour(s)). Aashish Romero DO [facility] Hospitalist [address] [place] [address] Securely message with [employer] info) Text page via [facility] Paging/Directory 03/03/2024 * Bella Argueta RN - 03/03/2024 10:46 AM CDT DATE/TIME OF CALL RECEIVED FROM LAB: 03/03/24 at 10:47 AM LAB TEST: blood glucose LAB VALUE: 56 PROVIDER NOTIFIED?: Yes PROVIDER NAME: Dr. Delfin Romero DATE/TIME LAB VALUE REPORTED TO PROVIDER: 1030 MECHANISM OF PROVIDER NOTIFICATION: [id number] PROVIDER RESPONSE: Administer IV Dextrose and recheck blood glucose in 15 minutes ++++++++++++++++++++++++++++++++++++ DATE/TIME OF CALL RECEIVED FROM LAB: 03/03/24 at 11:15 am LAB TEST: Blood glucose LAB VALUE: 39 PROVIDER NOTIFIED?: Yes PROVIDER NAME: Delfin Romero DATE/TIME LAB VALUE REPORTED TO PROVIDER: 03/03/24 at 11:18 am MECHANISM OF PROVIDER NOTIFICATION: [id number] PROVIDER RESPONSE: Additional IV dose of Dextrose (50 mL) start D10 @ 20 mL/hr ++++++++++++++++++++++++++++++++++++++++++ DATE/TIME OF CALL RECEIVED FROM LAB: 03/03/24 at 2:26 PM LAB TEST: Blood glucose LAB VALUE: 65 PROVIDER NOTIFIED?: Yes PROVIDER NAME: Delfin Romero DATE/TIME LAB VALUE REPORTED TO PROVIDER: 1410 MECHANISM OF PROVIDER NOTIFICATION: Page PROVIDER RESPONSE: Increase continuous D10 to 40 mL/hr documented in this encounter H&P Notes * Ron Tripathi MD - 03/02/2024 4:41 PM CDT [facility] History and Physical - Hospitalist [...] has memory issues and onto his primary TRAVELING REPRESENTATIVE. Per aunt, patient always had cognitive deficits [...] 2-4 Days Ron Tripathi MD Hospitalist Service [facility] Securely message with [employer] (more info) Text page via [facility] Paging/Directory Chief Complaint Melanotic stools. History is [...] Dose Informant Patient Reported? Taking? BISACODYL PO Aircraft Launch And Recovery Technician Yes No Sig: Take 10 mg by [...] PM CDTAssociated Order(s): Single Lumen Midline Placement [facility] Single Lumen Midline Placement Date/Time: [...] the procedure a time out was called [place] Protocol: the Joint [facility] [place] Protocol was followed Preparation: Patient was prepped [...] type: non-valved Catheter size: 4 Fr Brand: [employer] Lot number: [id number] Placement method: venipuncture, MST and ultrasound Number [...] Recommendations: - Continue diet as ordered by MD. - Continue renal MVI. MALNUTRITION: % Weight [...] evaluated per protocol and Practice Guidelines Heidi Lopez RDN, LD Clinical Dietitian 3rd floor/ICU: [phone] All other floors: [phone] Weekend/holiday: [phone] Office: [phone] * Job Her MD - 03/04/2024 12:38 [...] file Other Topics Concern Parent/sibling w/ CABG, MS or angioplasty before 65F 55M? Not Asked Social History Narrative Not on file Social Determinants of Health Financial Resource Strain: Low Risk (06/23/2022) [facility] Financial Resource Strain Difficulty of Paying Living Expenses: 3 Difficulty of Paying Living Expenses: Not on file Food Insecurity: No Food Insecurity (06/23/2022) Received from [facility] [employer] [facility] [employer] [facility] Food Insecurity Worried About Running Out of Food in the Last Year: 1 Transportation Needs: No Transportation Needs (06/23/2022) Received from [facility] [email or web address] [facility] Transportation Needs Lack of Transportation (Medical): 1 Physical Activity: Not on file Stress: Not on file Social Connections: Unknown (06/24/2023) Received [facility] [facility] Social Connections Frequency of Communication with Friends and Family: Not on file Interpersonal Safety: Not on file Housing Stability: Low Risk (06/23/2022) Received from [facility] [employer] [facility] Housing Stability Unable to Pay for Housing [...] hold heparin with HD Job Her MD [facility] - Nephrology Office Pager: [phone] * Paul Rasmussen MD - 03/03/2024 3:58 PM CDTAssociated Order(s): GASTROENTEROLOGY IP CONSULT Images from the original note were not included. GASTROENTEROLOGY CONSULTATION Herminio Victor [address] [place] [phone] 58 year old male Admission Date/Time: 03/02/2024 [...] restart based on course. Paul Rasmussen MD [facility] - [facility] [phone] HPI: Herminio Victor is a 58 year [...] evening 12/19/17 Yes Estrella Guillen MD B Iwlzevn-B-Quaga Acid (WESCAPS PO) Take 1 capsule by [...] 3.5 BILITOTAL 0.2 -- 0.5 0.6 ALT -- 16 AST - 17 LIPASE -- -- -- 154 I [...] Communication Assessment Patient's communication style: spoken language (Chilean or Bilingual) Hearing Difficulty or Deaf: no [...] Support: Care provided by: other (see comments) (TRAVELING REPRESENTATIVE- aunt Thelma) Provides care for: no one, [...] Insecurity: No Food Insecurity (06/23/2022) [facility] Insecurity Worried About Running Out of Food in the Last Year: 1 Depression: Not at risk (05/22/2020) Received from [employer] [facility] PHQ-2 PHQ-2 Score: 0 Housing Stability: Low Risk (06/23/2022) Received from [employer] [facility] Housing Stability Unable to Pay for Housing in the Last Year: 1 Tobacco Use: Low Risk (02/25/2024) Patient History Smoking Tobacco Use: Never Smokeless Tobacco Use: Never Passive Exposure: Not on file Financial Resource Strain: Low Risk (06/23/2022) Received from [employer] [facility] Financial Resource Strain Difficulty of Paying Living Expenses: 3 Difficulty of Paying Living Expenses: Not on file Alcohol Use: Not on file Transportation Needs: No Transportation Needs (06/23/2022) [facility] Transportation Needs Lack of Transportation (Medical): 1 Physical Activity: Not on file Interpersonal Safety: Not on file Stress: Not on file Social Connections: Unknown (06/24/2023) [facility] Social Connections Frequency of Communication [...] mother and aunt. His aunt is his TRAVELING REPRESENTATIVE and has 40 hours per week.He receives assistance with all ADL's and IADL's except eating. He is legally blind so he needs assistance with ambulating, positioning and transfers too. He ambulates without any assistive devices.He receives Dialysis on MWF at [facility] in [place] per his aunt report.His transportation company [employer] in [place]. Their Phone number is [phone] and they are open M-F , 7 AM to 5 pm. CM will monitor for any discharge needs. Laura Bird RN, BSN, CM Inpatient Care Coordination [facility] [phone] documented in this encounter ED Notes * Albina Sneed RN - 03/02/2024 5:43 PM CDT [facility] ED Nurse Handoff Report ED Chief complaint: Generalized Weakness . ED Diagnosis: Final diagnoses: Anemia, unspecified type Black stool Allergies: Allergies Allergen Reactions Dihydroxyaluminum Aminoacetate Nausea GI bleeding Aspirin GI Disturbance and Rash PN: LW Reaction: unknown Code Status: Full Code Activity level - Baseline/Home: lift. Activity Level - Current: bed Lift room needed: No. Bariatric: No Surveyor Helper Needed: No Isolation: No. Infection: Not Applicable. [...] POS Antibody Screen Negative SPECIMEN EXPIRATION DATE [id number] PREPARE RED BLOOD CELLS (UNIT) Blood Component Type Red Blood Cells Product Code K3769O23 Unit Status Transfused Unit Number [id number] CROSSMATCH Compatible CODING SYSTEM [id number] ISSUE DATE AND TIME [id number] UNIT ABO/RH O+ UNIT TYPE ISBT 5100 PREPARE RED BLOOD CELLS (UNIT) Blood Component Type Red Blood Cells Product Code O5752J49 Unit Status Ready for issue Unit Number [id number] CROSSMATCH Compatible CODING SYSTEM [id number] PREPARE RED BLOOD CELLS (UNIT) TRANSFUSE RED [...] was read: Yes ED Nurse Name: Lilibeth Ray, RN 5:43 PM * Malka Larios RN [...] time: 1:38 PM Means of arrival: Comments: [facility] * Raúl Bernard MD - 03/02/2024 1:54 [...] POS Antibody Screen Negative SPECIMEN EXPIRATION DATE [id number] PREPARE RED BLOOD CELLS (UNIT) Blood Component Type Red Blood Cells Product Code R7531Q82 Unit Status Ready for issue Unit Number [id number] CROSSMATCH Compatible CODING SYSTEM [id number] PREPARE RED BLOOD CELLS (UNIT) Blood Component Type Red Blood Cells Product Code G8402U87 Unit Status Ready for issue Unit Number [id number] CROSSMATCH Compatible CODING SYSTEM [id number] PREPARE RED BLOOD CELLS (UNIT) ABO/RH TYPE AND SCREEN EKG ECG taken at 1400, ECG read at 1403 Sinus rhythm with 1st degree AV block Inferior infarct, age undetermined No significant change when compared to prior, dated 02/24/24. Rate 82 bpm. MI interval 210 ms. QRS duration 88 ms. [...] regarding admission. Medical Decision Making / Diagnosis [facility] Diagnoses: None MIPS None MDM Herminio Victor [...] Prescriptions No medications on file Scribe Disclosure: IDb, am serving as a scribe at 2:11 PM on 03/02/2024 to document services personally performed by Raúl Bernard MD based on my observations and the provider's statements to me. Scribe Disclosure: I, LAVINIA ENRIQUEZ, am serving as a scribe racehorse trainer at 2:09 PM on 03/02/2024 to [...] with pt. * Pharmacy-Anticoagulation Service - Ryann Armando, [facility] - 03/12/2024 2:15 PM CDT Images from the original note were not included. 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 INR Goal= 2-3. Warfarin CORPORATE OPERATIONS COMPLIANCE MANAGER Regimen: 5mg M-F Anticoagulation Dose History More [...] 6:47 AM CDT Assumed care Assumed care [id number]. A&Ox3, disoriented to time and can be [...] Flowsheet Documentation Taken 03/11/2024 1950 by Harriett Jacobsen client relations representative Review/Management: medications reviewed Problem: Adult Inpatient [...] shift note. Outcome: Progressing Flowsheets (Taken 03/11/2024 062) Outcome Evaluation: Bp controlled w/ scheduled meds. [...] Flowsheet Documentation Taken 03/11/2024835 by Raul Carter client relations representative Review/Management: medications reviewed Goal: Blood Pressure in Desired Range Outcome: Progressing Intervention: Maintain Blood Pressure Management Recent Flowsheet Documentation Taken 03/11/2024835 by Raul Carter RN Medication Review/Management: medications reviewed * Plan of Care - Harriett Jacobsen RN - 03/11/2024 5:48 AM CDT Assumed care [id number]. A&Ox4, but can be confused intermittently. On RA and cpap at night. On a renal diet and needs help ordering/tray set-up. Has midline to L arm that is saline locked. Got 1 unit of blood. BG checks: 148, 120, 94. TREE INSPECTOR called overnight, see progress notes from press writer, , and respiratory. Denies pain. Plan of care [...] Flowsheet Documentation Taken 03/10/20242319 by Harriett Jacobsen client relations representative Review/Management: medications reviewed Problem: Adult Inpatient [...] Notified Person Name: Andie Zhang Notification Date/Time: 03/11/2024 0241 Mechanism of Provider Notification: [employer] messaging Purpose of Notification: FYI- Patient got 1U [...] Progressing * Pharmacy-Anticoagulation Service - Nivia Mahan [facility] - 03/10/2024 12:35 PM CDT Clinical Pharmacy - Warfarin Dosing Consult Pharmacy has been consulted to manage this patient???s warfarin therapy. Indication: DVT/ PE Treatment Therapy Goal: INR 2-3 Warfarin Prior to Admission: Yes Warfarin CORPORATE OPERATIONS COMPLIANCE MANAGER Regimen: 5mg M-F Dose Comments: 5mg today [...] shift note. Outcome: Progressing Flowsheets (Taken 03/09/2024 2247) Outcome Evaluation: Hgb 7.6 with recheck Goal: [...] Flowsheet Documentation Taken 03/09/2024 0000 by Suzanna Ovalles, RN Safety Promotion/Fall Prevention: safety round/check completed [...] 03/08/20242304 by Diego Osei RN Outcome: Progressing Flowsheets (Taken 03/08/20242304) Outcome Evaluation: [...] Flowsheet Documentation Taken 03/08/20241823 by Diego Osei reaming machine tender Interventions: declines Goal: Readiness for Transition of Care Outcome: Progressing Goal Outcome Evaluation: Plan of Care Reviewed With: patient Overall Patient Progress: no changeOverall Patient Progress: no change Outcome Evaluation: HGB 7.5, denies pain/SOB/Nausea * Plan of Care - Maeve Shiplye RN - 03/08/2024 3:46 PM CDT To [...] 6 hecks, symptom management. Bedside Nurse: Maeve Sihpley RN Problem: Adult Inpatient Plan of Care [...] Promote Comfort Recent Flowsheet Documentation Taken 03/08/2024 08 by Shipley, Maeve E, reaming machine tender Interventions: declines Goal: Readiness for Transition of [...] Daily Eileen Earl MD 5 mg at 03/08/24821 atorvastatin (LIPITOR) tablet 20 mg 20 mg Oral QPM Eileen Earl MD 20 mg at 03/07/242014 calcium acetate (PHOSLO) capsule 667 mg 667 mg Oral TID w/meals Eileen Earl MD 667 mg at 03/08/24 0822 calcium acetate (PHOSLO) capsule 667 mg 667 mg Oral With Snacks or Supplements Eileen Earl MD calcium carbonate (TUMS) chewable tablet 1,000 mg 1,000 mg Oral 4x Daily PRN Eileen Ealr MD dextrose 10% infusion Intravenous Continuous Eileen [...] 3 mL Intracatheter q1 min prn Eileen Eral MD sodium chloride (PF) 0.9% PF flush [...] ESRD (end stage renal disease) (H) dialysis [facility] History of staph septicemia 12/20/2015 Hyperkalemia Hyperlipemia [...] 30 tablet 3 03/01/2024 at PM B Rirlmqo-N-Pwfwq Acid (WESCAPS PO) Take 1 capsule by [...] 4 mg 4 mg Oral Q6H PRN Earl, Eileen Jae, MD Or ondansetron (ZOFRAN) injection 4 mg [...] mL Intravenous Q15 Min PRN Jose Enrique aNylor MD PHYSICAL EXAM: BP 133/65 Pulse 71 [...] shift note. Outcome: Progressing Flowsheets (Taken 03/08/2024 06) Outcome Evaluation: US completed, multiple loose stools. [...] 2LPM. Denies pain. Significant swelling to SRIDHAR - notified, RUE US ordered, yet to be completed. BG [...] your shift note. Outcome: Progressing Flowsheets (Taken 03/07/20241822) Outcome Evaluation: No BM this shift. VSS, [...] Recent Flowsheet Documentation Taken 03/07/2024929 by Anusha Lindsey, LINDA Safety Promotion/Fall Prevention: activity supervised assistive device/personal items within reach clutter free environment maintained increase visualization of patient lighting adjusted nonskid shoes/slippers when out of bed safety round/check completed supervised activity treat reversible contributory factors treat underlying cause Intervention: Prevent Skin Injury Recent Flowsheet Documentation Taken 03/07/2024929 by Anusha Lindsey, RN Body Position: position changed independently Intervention: [...] and complete assessments, please see documentation flowsheets. [id number] Pertinent assessments:Pt disoriented to time & situation [...] Flowsheet Documentation Taken 03/07/2024 0125 by Byron Camarillo RN Safety Promotion/Fall Prevention: activity supervised assistive device/personal items within reach clutter free environment maintained increased rounding and observation nonskid shoes/slippers when out of bed patient and family education room near nurse's station room organization consistent safety round/check completed treat reversible contributory factors Intervention: Prevent Skin Injury Recent Flowsheet Documentation Taken 03/07/2024124 by Byron Camarillo RN Body Position: position changed independently Intervention: Prevent Infection Recent Flowsheet Documentation Taken 03/07/2024124 by Byron Camarillo RN Infection Prevention: single [...] of 36 at upon arrival from PACU, TREE INSPECTOR called. PRN D50% 50ml given via IV. Asymptomatic and alert.BG 112 and 112. Treatment Plan:Symptom management. IVF. Monitor labs & BG, Monitor stools, Dialysis M-W-, GI, Nephrology following Bedside Nurse: Mann Clark [...] and complete assessments, please see documentation flowsheets. [id number] Pertinent assessments:Pt disoriented to time. CPAP in [...] Thromboembolism) Risk Recent Flowsheet Documentation Taken 03/05/2024 08 by Bárbara Arana RN VTE Prevention/Management: SCDs (sequential compression devices) off Intervention: Prevent Infection Recent Flowsheet Documentation Taken 03/05/2024819 by Bárbara Arana RN Infection Prevention: environmental [...] and complete assessments, please see documentation flowsheets. [id number] Pertinent assessments: Pt disoriented to time. CPAP [...] shift note. Outcome: Progressing Flowsheets (Taken 03/04/2024 7616) Outcome Evaluation: BG stable Plan of Care [...] carb diet Treatment Plan: clears tomorrow and [employer] EXCHANGE ADMINISTRATOR at midnight for colonoscopy and EGD, monitor [...] Documentation Taken 03/04/2024399 by Zulema Parr, RN Hypoglycemia Management: (IV dextrose continued) blood [...] - 03/03/2024 3:08 PM CDT Cared for [phone] Pt Alert to self (cognitive delay; visually [...] Thromboembolism) Risk Recent Flowsheet Documentation Taken 03/03/2024 0900 by Bella Argueta RN VTE Prevention/Management: patient [...] of the update. Information Source(s): Patient's Aunt, ThelmaDottie/[employer] via phone Pertinent Information: None Changes made to CORPORATE OPERATIONS COMPLIANCE MANAGER medication list: Added: Senna Deleted: Bisacodyl, Lisinopril (Thelma states she was told to stop giving this last week) Changed: None Allergies reviewed with patient and updates made in EHR: no Medication History Completed By: Quang Gee RPH 03/02/2024 5:32 PM CORPORATE OPERATIONS COMPLIANCE MANAGER Med List Medication Sig Last Dose amLODIPine (NORVASC) 5 MG tablet Take 5 mg by mouth daily 03/02/2024 at AM atorvastatin (LIPITOR) 20 MG tablet Take 1 tablet (20 mg) by mouth every evening 03/01/2024 at PM B Dxbsoek-L-Aoxlr Acid (WESCAPS PO) Take 1 capsule by [...] PM CDT TYPE AND SCREEN, ADULT STAT 6:53 PM CDT ABO/RH TYPE AND SCREEN STAT 6:53 PM CDT CONDITIONAL PREPARE RED BLOOD [...] BY METER Routine 03/06/2024 3:03 PM CDT HEMOGLOBIN STAT 03/06/2024 1:23 PM CDT UPPER GI ENDOSCOPY Routine 03/06/2024 1: 21 PM CDT GLUCOSE BY METER Routine 03/06/2024 12:2 6 PM CDT GLUCOSE BY METER Routine 03/06/2024 12:0 1 PM CDT TRANSFUSE RED BLOOD CELLS (UNIT) Routine 03/06/2024 9:54 AM CDT TYPE AND SCREEN, ADULT STAT 8:53 AM CDT ABO/RH TYPE AND SCREEN STAT 8:53 AM CDT GLUCOSE BY METER Routine [...] PM CDT TYPE AND SCREEN, ADULT STAT 1:56 PM CDT CBC WITH PLATELETS & DIFFERENTIAL STAT 03/02/2024 1:56 PM CDT INR STAT 03/02/2024 1:56 PM CDT HEMOGLOBIN A1C Add-On 03/02/2024 1:56 PM CDT COMPREHENSIVE METABOLIC PANEL STAT 03/02/2024 1:56 PM CDT ABO/RH TYPE AND SCREEN STAT 1:56 PM CDT documented in this encounter Results * Glucose by meter (03/12/2024 12:00 PM CDT) GLUCOSE BY METER POCT 92 70 - 99 mg/dL 03/12/2024 12:10 PM CDT RH LABORATORY POC Blood, Capillary BLOOD SPECIMEN / Unknown 03/12/2024 12:00 PM CDT 03/12/2024 12:10 PM CDT Ron HERNANDEZ POCT RH LABORATORY [facility] Acute Care Lab [address] [facility] Lab (1st floor, no room number) [place] [address] * Glucose by meter (03/12/2024 7:51 AM CDT) GLUCOSE BY METER POCT 92 70 - 99 mg/dL 03/12/2024 7:58 AM CDT RH LABORATORY POC Blood, Capillary BLOOD SPECIMEN / Unknown 03/12/2024 7:51 AM CDT 03/12/2024 7:58 AM CDT Ron HERNANDEZ POCT Performing Organization Address City/[facility]/ZIP Co de Phone Number LABORATORY POC [facility] Care Lab [address] Lab (1st floor, no room number) [address] [place] [address] * Glucose (03/12/2024 6:06 AM CDT) Glucose 77 70 - 99 mg/dL 03/12/2024 6:35 AM CDT RH LABORATORY Blood STRUCTURE OF RIGHT UPPER LIMB / Unknown Venipuncture / Unknown 03/12/2024 6:06 AM CDT 03/12/2024 6:10 AM CDT Ron Tripathi MD LAB - BLOOD ORDERABL ES Performing Organization Address [facility]/ZIP Co de Phone Number [facility] Care Lab [address] Lab (1st floor, no room number) [address] [place] [address] * (ABNORMAL) Hemoglobin (03/12/2024 6:06 AM CDT) Hemoglobin 8.1(L) 13.3 - 17.7 g/dL 03/12/2024 6:14 AM CDT RH LABORATORY Blood STRUCTURE OF RIGHT UPPER LIMB / Unknown Venipuncture / Unknown 03/12/2024 6:06 AM CDT 03/12/2024 6:10 AM CDT Aashish Romero DO LAB - BLOOD ORDER NADIA Performing Organization Address City/[facility]/ZIP Co de Phone Number [facility] Acute Care Lab [address] Lab (1st floor, no room number) [place] [id number] [place] [address] * (ABNORMAL) Renal panel (03/12/2024 6:06 AM CDT) Sodium 123(L) 135 - 145 mmol/L 03/12/2024 6:35 AM CDT LABORATORY Comment:Reference intervals for this [...] MD LAB - BLOOD ORDERA BLES LABORATORY [facility] [address] [facility] ([facility]st floor, no room number) [place] [address], [facility] * (ABNORMAL) INR (03/12/2024 6:06 AM CDT) INR 1.20(H) 0.85 - 1.15 03/12/2024 6:25 AM CDT RH LABORATORY Blood STRUCTURE OF RIGHT UPPER LIMB / Unknown Venipuncture / Unknown 03/12/2024 6:06 AM CDT 03/12/2024 6:10 AM CDT Eileen Earl MD LAB - BLOOD ORDERA BLES Performing Organization Address City/[facility]/ZIP Co de Phone Number LABORATORY [facility] Lab [address] Lab (1st floor, no room number) [place] [address] * (ABNORMAL) Glucose by meter (03/12/2024 1:55 AM CDT) GLUCOSE BY METER POCT 107(H) 70 - 99 mg/dL 03/12/2024 2:01 AM CDT LABORATORY POC Blood, Capillary BLOOD SPECIMEN / Unknown 03/12/2024 1:55 AM CDT 03/12/2024 2:01 AM CDT Ron DEAN - DAVID POCT Performing Organization Address [facility]/ZIP Co de Phone Number LABORATORY [facility] Lab [address] Lab (1st floor, no room number) [place] [address] * (ABNORMAL) Glucose by meter (03/11/2024 9:11 PM CDT) GLUCOSE BY METER POCT 132(H) 70 - 99 mg/dL 03/11/2024 9:18 PM CDT LABORATORY POC Blood, Capillary BLOOD SPECIMEN / Unknown 03/11/2024 9:11 PM CDT 03/11/2024 9:18 PM CDT Ron DEAN - DAVID POCT Performing Organization Address City/[facility]/ZIP Co de Phone Number LABORATORY [facility] Lab [address] Lab (1st floor, no room number) [place] [address] * (ABNORMAL) Hemoglobin (03/11/2024 6:10 PM CDT) Hemoglobin 8.8(L) 13.3 - 17.7 g/dL 03/11/2024 6:22 PM CDT RH LABORATORY Blood STRUCTURE OF RIGHT UPPER LIMB / Unknown Venipuncture / Unknown 03/11/2024 6:10 PM CDT 03/11/2024 6:20 PM CDT Aashish Romero DO LAB - BLOOD ORDER NADIA [facility] Care Lab [address] Lab (1st floor, no room number) [place] [address], [facility] * (ABNORMAL) Glucose by meter (03/11/2024 5:31 PM CDT) GLUCOSE BY METER POCT 144(H) 70 - 99 mg/dL 03/11/2024 5:39 PM CDT RH LABORATORY POC Blood, Capillary BLOOD SPECIMEN / Unknown 03/11/2024 5:31 PM CDT 03/11/2024 5:39 PM CDT Ron DEAN - DAVID POCT Performing Organization Address City/[facility]/ZIP Co de Phone Number LABORATORY [facility] Lab [address] Lab (1st floor, no room number) [place] [address], [facility] * (ABNORMAL) Glucose by meter (03/11/2024 11:47 AM CDT) GLUCOSE BY METER POCT 117(H) 70 - 99 mg/dL 03/11/2024 11:54 AM CDT LABORATORY POC Blood, Capillary BLOOD SPECIMEN / Unknown 03/11/2024 11:47 AM CDT 03/11/2024 11:54 AM CDT Ron DEAN - BEXIANG POCT LABORATORY [facility] Lab [address] Lab (1st floor, no room number) [place] [address] * Glucose by meter (03/11/2024 7:36 AM CDT) GLUCOSE BY METER POCT 81 70 - 99 mg/dL 03/11/2024 7:45 AM CDT RH LABORATORY POC Blood, Capillary BLOOD SPECIMEN / Unknown 03/11/2024 7:36 AM CDT 03/11/2024 7:45 AM CDT Ron Tripathi MD LAB - BEAKER POCT RH LABORATORY POC [facility] Acute Care Lab [address] Lab (1st floor, no room number) [place] [address] * (ABNORMAL) Renal panel (03/11/2024 7:03 AM CDT) Sodium 126(L) 135 - 145 mmol/L 03/11/2024 7:33 AM CDT LABORATORY Comment:Reference intervals for this [...] - 1.17 mg/dL 03/11/2024 7:33 AM CDT RH LABORATORY GFR Estimate 9(L) [...] Earl MD LAB - BLOOD ORDERA BLES [facility] Acute Care Lab [address] Lab (1st floor, no room number) [address] * INR (03/11/2024 7:03 AM CDT) INR 1.11 0.85 - 1.15 03/11/2024 7:31 AM CDT RH LABORATORY Blood STRUCTURE OF RIGHT UPPER LIMB / Unknown Venipuncture / Unknown 03/11/2024 7:03 AM CDT 03/11/2024 7:10 AM CDT Eileen Earl MD LAB - BLOOD ORDERA BLES Performing Organization Address City/[facility]/ZIP Co de Phone Number [facility] Acute Care Lab [address] Lab (1st floor, no room number) [address] * (ABNORMAL) CBC with platelets (03/11/2024 7:03 [...] DO LAB - BLOOD ORDER NADIA LABORATORY [facility] Acute Care Lab [address] Lab (1st floor, no room number) [place] [address] * XR Chest Port 1 View (03/11/2024 3:25 AM CDT) Anatomical Region Laterality Modality Chest Digital Radiogra phy 03/11/2024 3:25 AM CDT Impressions 03/11/2024 3:30 AM CDT IMPRESSION: Normal heart size and pulmonary vascularity. Lungs clear. No pneumothorax. Minimal fluid or thickening along the right fissure. Narrative 03/11/2024 3:30 AM CDT EXAM: XR CHEST PORT 1 VIEW LOCATION: [facility] DATE: 03/11/2024 INDICATION: Shortness of breath COMPARISON: None. Procedure Note David Díaz MD - 03/11/2024 EXAM: XR CHEST PORT 1 VIEW LOCATION: [facility] DATE: 03/11/2024 INDICATION: Shortness of breath COMPARISON: [...] DEAN - DAVID POCT Performing Organization Address City/[facility]/ZIP Co de Phone Number LABORATORY [facility] Lab [address] Lab (1st floor, no room number) [place] [phone] * (ABNORMAL) Glucose by meter (03/11/2024 1:57 AM CDT) GLUCOSE BY METER POCT 120(H) 70 - 99 mg/dL 03/11/2024 2:04 AM CDT LABORATORY POC Blood, Capillary BLOOD SPECIMEN / Unknown 03/11/2024 1:57 AM CDT 03/11/2024 2:04 AM CDT Ron DEAN - DAVID POCT LABORATORY [facility] Lab [address] Lab (1st floor, no room number) [place] [address] * CONDITIONAL Transfuse red blood cells (unit) [...] LAB - BEAKER POCT RH LABORATORY POC [facility] Acute Care Lab [address] [facility] Lab (1st floor, no room number) [place] [address] * Adult Type and Screen (03/10/2024 6:53 PM CDT) ABO/RH(D) O POS 03/10/2024 6:44 PM CDT RH BLOOD BANK Antibody Screen Negative Negative 03/10/2024 6:44 PM CDT RH BLOOD BANK SPECIMEN EXPIRATION DATE [id number] 03/10/2024 6:44 PM CDT RH BLOOD BANK Blood STRUCTURE OF RIGHT UPPER LIMB / Unknown Venipuncture / Unknown 03/10/2024 6:53 PM CDT 03/10/2024 6:57 PM CDT Antonino Cehek MD LAB - BLOOD BANK SHANNON T ORDER Performing Organization Address [facility] Co de Phone Number RH BLOOD BANK [address] [place] [address] [facility]ENTER * CONDITIONAL Prepare red blood cells (unit) (03/10/2024 6:37 PM CDT) Blood Component Type Red Blood Cells RH BLOOD BANK Product Code [id number] RH BLOO D BANK Unit Status Transfused RH BLOO D BANK Unit Number [id number] RH B LOOD BANK CROSSMATCH Compatible RH BLOOD BANK CODING SYSTEM [id number] RH BLO OD BANK ISSUE DATE AND TIME [id number] RH BLOOD BANK UNIT ABO/RH O+ RH BLOOD BANK UNIT TYPE ISBT 5100 RH BL OOD BANK 03/10/2024 6:37 PM CDT Eileen Earl MD BLOOD BANK PRODUCT ORDERABLES BLOOD BANK [address] [place] [address] * (ABNORMAL) Hemoglobin (03/10/2024 6:00 PM CDT) Hemoglobin 7.0(L) 13.3 - 17.7 g/dL 03/10/2024 6:09 PM CDT LABORATORY Blood STRUCTURE OF RIGHT UPPER LIMB / Unknown Venipuncture / Unknown 03/10/2024 6:00 PM CDT 03/10/2024 6:07 PM CDT Aashish Romero DO LAB - BLOOD ORDER NADIA Performing Organization Address City/[facility]/ZIP Co de Phone Number [facility] [address] [facility] Lab (1st floor, no room number) [place] [phone] * (ABNORMAL) Glucose by meter (03/10/2024 4:49 PM CDT) GLUCOSE BY METER POCT 208(H) 70 - 99 mg/dL 03/10/2024 5:05 PM CDT LABORATORY POC Blood, Capillary BLOOD SPECIMEN / Unknown 03/10/2024 4:49 PM CDT 03/10/2024 5:05 PM CDT Ron Tripathi MD LAB - BEAKER POCT Performing Organization Address [facility]/ZIP Co de Phone Number LABORATORY [facility] Lab [address] [facility] Lab (1st floor, no room number) [place] [address] * Glucose by meter (03/10/2024 2:35 PM CDT) GLUCOSE BY METER POCT 98 70 - 99 mg/dL 03/10/2024 2:43 PM CDT LABORATORY POC Blood, Capillary BLOOD SPECIMEN / Unknown 03/10/2024 2:35 PM CDT 03/10/2024 2:43 PM CDT Ron Biala MD LAB - BEAKER POCT Performing Organization Address City/[facility]/ZIP Co de Phone Number LABORATORY [facility] [address] Lab (1st floor, no room number) [place] [phone] [place] [address] * Glucose by meter (03/10/2024 1:28 PM CDT) GLUCOSE BY METER POCT 94 70 - 99 mg/dL 03/10/2024 1:37 PM CDT RH LABORATORY POC Blood, Capillary BLOOD SPECIMEN / Unknown 03/10/2024 1:28 PM CDT 03/10/2024 1:37 PM CDT Ron HERNANDEZ POCT Performing Organization Address [facility]/ZIP Co de Phone Number LABORATORY [facility] Lab [address] Lab (1st floor, no room number) [place] [phone] * Glucose by meter (03/10/2024 12:35 PM CDT) GLUCOSE BY METER POCT 92 70 - 99 mg/dL 03/10/2024 12:50 PM CDT LABORATORY POC Blood, Capillary BLOOD SPECIMEN / Unknown 03/10/2024 12:35 PM CDT 03/10/2024 12:50 PM CDT Ron HERNANDEZ POCT Performing Organization Address City/[facility]/ZIP Co de Phone Number LABORATORY [facility] [address] Lab (1st floor, no room number) [place] [phone] * (ABNORMAL) Glucose by meter (03/10/2024 11:28 AM CDT) GLUCOSE BY METER POCT 102(H) 70 - 99 mg/dL 03/10/2024 11:35 AM CDT LABORATORY POC Blood, Capillary BLOOD SPECIMEN / Unknown 03/10/2024 11:28 AM CDT 03/10/2024 11:35 AM CDT Narrative Authorizing Provider Result Lauren Tripathi MD LAB - BEAKER POCT LABORATORY [facility] [address] Lab (1st floor, no room number) [address] * (ABNORMAL) Glucose by meter (03/10/2024 10:35 AM CDT) GLUCOSE BY METER POCT 133(H) 70 - 99 mg/dL 03/10/2024 10:42 AM CDT RH LABORATORY POC Blood, Capillary BLOOD SPECIMEN / Unknown 03/10/2024 10:35 AM CDT 03/10/2024 10:42 AM CDT Ron DEAN - DAVID POCT Performing Organization Address [facility]/ZIP Co de Phone Number LABORATORY [facility] [address] Lab (1st floor, no room number) [address] * (ABNORMAL) Glucose by meter (03/10/2024 8:32 AM CDT) GLUCOSE BY METER POCT 105(H) 70 - 99 mg/dL 03/10/2024 8:45 AM CDT LABORATORY POC Blood, Capillary BLOOD SPECIMEN / Unknown 03/10/2024 8:32 AM CDT 03/10/2024 8:45 AM CDT Narrative Authorizing Provider Result Lauren DEAN - DAVID POCT LABORATORY [facility] [address] Lab (1st floor, no room number) [address] * (ABNORMAL) Hemoglobin (03/10/2024 7:46 AM CDT) Hemoglobin 7.0(L) 13.3 - 17.7 g/dL 03/10/2024 7:55 AM CDT RH LABORATORY Blood STRUCTURE OF RIGHT UPPER LIMB / Unknown Venipuncture / Unknown 03/10/2024 7:46 AM CDT 03/10/2024 7:50 AM CDT Ron Tripathi MD LAB - BLOOD ORDERABL ES RH LABORATORY [facility] Lab [address] Lab (1st floor, no room number) [place] [address], [facility] * (ABNORMAL) Renal panel (03/10/2024 7:46 AM CDT) [facility] Signature Sodium 124(L) 135 - 145 mmol/L 03/10/2024 [...] >60 mL/min/1. 73m2 03/10/2024 8:10 AM CDT LABORATORY Calcium 7.4(L) 8.8 - 10.2 mg/dL [...] MD LAB - BLOOD ORDERA BLES LABORATORY [facility] [address] Lab (1st floor, no room number) [place] [phone], [facility] * (ABNORMAL) INR (03/10/2024 7:46 AM CDT) INR 1.18(H) 0.85 - 1.15 03/10/2024 8:03 AM CDT RH LABORATORY Blood STRUCTURE OF RIGHT UPPER LIMB / Unknown Venipuncture / Unknown 03/10/2024 7:46 AM CDT 03/10/2024 7:50 AM CDT Eileen Earl MD LAB - BLOOD ORDERA BLES Performing Organization Address [facility]/ZIP Co de Phone Number LABORATORY [facility] Lab [address] Lab (1st floor, no room number) [place] [phone], [facility] * (ABNORMAL) Glucose by meter (03/10/2024 3:38 AM CDT) GLUCOSE BY METER POCT 112(H) 70 - 99 mg/dL 03/10/2024 3:44 AM CDT LABORATORY POC Blood, Capillary BLOOD SPECIMEN / Unknown 03/10/2024 3:38 AM CDT 03/10/2024 3:44 AM CDT Ron Tripathi MD LAB - BEAKER POCT Performing Organization Address City/[facility]/ZIP Co de Phone Number LABORATORY POC [facility] Lab [address] Lab (1st floor, no room number) [place] [address], [facility] * Glucose by meter (03/10/2024 12:05 AM CDT) GLUCOSE BY METER POCT 97 70 - 99 mg/dL 03/10/2024 12:11 AM CDT LABORATORY POC Blood, Capillary BLOOD SPECIMEN / Unknown 03/10/2024 12:05 AM CDT 03/10/2024 12:11 AM CDT Ron DEAN - BEAKER POCT LABORATORY [facility] Lab [address] Lab (1st floor, no room number) [place] [address], [facility] * (ABNORMAL) Hemoglobin (03/09/2024 11:50 PM CDT) Hemoglobin 7.5(L) 13.3 - 17.7 g/dL 03/09/2024 11:57 PM CDT LABORATORY Blood STRUCTURE OF RIGHT HAND / Unknown Venipuncture / Unknown 03/09/2024 11:50 PM CDT 03/09/2024 11:53 PM CDT Narrative Authorizing Provider Result Lauren Tripathi MD LAB - BLOOD ORDERABL ES Performing Organization Address [facility]/ZIP Co de Phone Number [facility] Lab [address] Lab (1st floor, no room number) [place] [phone], [facility] * (ABNORMAL) Glucose by meter (03/09/2024 8:25 PM CDT) GLUCOSE BY METER POCT 159(H) 70 - 99 mg/dL 03/09/2024 8:32 PM CDT LABORATORY POC Blood, Capillary BLOOD SPECIMEN / Unknown 03/09/2024 8:25 PM CDT 03/09/2024 8:32 PM CDT Narrative Authorizing Provider Result Lauren DEAN - BEAKER POCT LABORATORY [facility] Lab [address] Lab (1st floor, no room number) [address] * (ABNORMAL) Hemoglobin (03/09/2024 7:13 PM CDT) Hemoglobin 7.6(L) 13.3 - 17.7 g/dL 03/09/2024 7:27 PM CDT RH LABORATORY Blood VENOUS LINE / Unknown Venipuncture / Unknown 03/09/2024 7:13 PM CDT 03/09/2024 7:25 PM CDT Narrative Authorizing Provider Result Lauren Tripathi MD LAB - BLOOD ORDERABL ES [facility] Lab [address] Lab (1st floor, no room number) [address] * (ABNORMAL) Glucose by meter (03/09/2024 4:12 PM CDT) GLUCOSE BY METER POCT 147(H) 70 - 99 mg/dL 03/09/2024 4:19 PM CDT LABORATORY POC Blood, Capillary BLOOD SPECIMEN / Unknown 03/09/2024 4:12 PM CDT 03/09/2024 4:19 PM CDT Narrative Authorizing Provider Result Lauren Tripathi MD LAB - BEAKER POCT LABORATORY [facility] [address] Lab (1st floor, no room number) [address] * (ABNORMAL) Hemoglobin (03/09/2024 2:16 PM CDT) Hemoglobin 7.6(L) 13.3 - 17.7 g/dL 03/09/2024 2:43 PM CDT RH LABORATORY Blood VASCULAR LINE / Unknown Venipuncture / Unknown 03/09/2024 2:16 PM CDT 03/09/2024 2:29 PM CDT Narrative Authorizing Provider Result Lauren Tripathi MD LAB - BLOOD ORDERABL ES Performing Organization Address [facility]/ZIP Co de Phone Number LABORATORY [facility] [address] Lab (1st floor, no room number) [address] [place] [address] * (ABNORMAL) Glucose by meter (03/09/2024 1:35 PM CDT) GLUCOSE BY METER POCT 150(H) 70 - 99 mg/dL 03/09/2024 1:42 PM CDT RH LABORATORY POC Blood, Capillary BLOOD SPECIMEN / Unknown 03/09/2024 1:35 PM CDT 03/09/2024 1:42 PM CDT Ron Tripathi MD LAB - BEAKER POCT Performing Organization Address [facility]/ZIP Co de Phone Number LABORATORY POC [facility] [address] Lab (1st floor, no room number) [address] * Morphology Tracking (03/09/2024 9:12 AM CDT) Blood VENOUS LINE / Unknown Venipuncture / Unknown 03/09/2024 9:12 AM CDT 03/09/2024 9:26 AM CDT Antonino Cheek MD LAB - BLOOD ORDERABL ES Performing Organization Address [facility]/ZIP Co de Phone Number LABORATORY [facility] Lab [address] Lab (1st floor, no room number) [address] * (ABNORMAL) Reticulocyte count (03/09/2024 9:12 AM CDT) % Reticulocyte 2.8(H) 0.5 - 2.0 % 03/09/2024 9:33 AM CDT RH LABORATORY Absolute Reticulocyte 0.072 0.025 - 0.095 10e6/uL 03/09/2024 9:33 AM CDT RH LABORATORY Blood VENOUS LINE / Unknown Venipuncture / Unknown 03/09/2024 9:12 AM CDT 03/09/2024 9:26 AM CDT Antonino Cheek MD LAB - BLOOD ORDERABL ES RH LABORATORY [facility] [address] Lab (1st floor, no room number) [place] [address], [facility] * (ABNORMAL) CBC with platelets [...] - 8.3 10e3/uL 03/09/2024 9:33 AM CDT LABORATORY Absolute Lymphocytes 0.5(L) 0.8 - 5.3 10e3/uL 03/09/2024 9:33 AM CDT LABORATORY Absolute Monocytes 0.7 0.0 - 1.3 10e3/uL 03/09/2024 9:33 AM CDT LABORATORY Absolute Eosinophils 0.3 0.0 - 0.7 [...] MD LAB - BLOOD ORDERABL ES LABORATORY [facility] [address] Lab (1st floor, no room number) [place] [address] * Bld morphology pathology review (03/09/2024 9:12 AM CDT) Final Diagnosis Peripheral blood for morphology: -Moderate normochromic, normocytic anemia without evidence of red cell regeneration; no morphologic or laboratory features of hemolysis detected -Slight mature neutrophilia without morphologic abnormalities 03/13/2024 10:17 AM [facility] Comment Review of recent laboratory data notes normal LDH and haptoglobin. The history of GI bleeding and end-stage renal disease on hemodialysis are noted. Both conditions would contribute to the anemia present. 03/13/2024 10:17 AM [facility] Clinical Information Looking for signs of hemolysis 03/13/2024 10:17 AM [facility] Peripheral Smear ERYTHROCYTES: The [...] than 50: Marked thrombocytopenia 03/13/2024 10:17 AM [facility] Performing Labs The technical component of this testing was completed at [facility], [facility] and [facility] 03/13/2024 10:17 AM [facility] Blood VENOUS LINE / Unknown Venipuncture / Unknown 03/09/2024 9:12 AM CDT 03/09/2024 9:27 AM T Comment:CBC with platelets d ifferential and Reticulocyte count should be ordered concurrently with the peripheral smear (all tests performed on the same tube of blood). The concurrent CBC with platelets differential and Reticulocyte count are incorporated into the final peripheral smear report and are necessary for interpretation. Antonino Cheek MD LAB - BEAKER AP [facility] Lab [address], [address] [place] [address] * Haptoglobin (03/09/2024 9:12 AM CDT) Haptoglobin 127 30 - 200 mg/dL 03/10/2024 1:23 AM CDT U LABORATORY Blood VENOUS LINE / Unknown Venipuncture / Unknown 03/09/2024 9:12 AM CDT 03/09/2024 9:26 AM CDT Antonino Cheek MD LAB - BLOOD ORDERABL ES U LABORATORY [facility] [address] [facility], [address] [place] [address] * Bilirubin Direct and Total (03/09/2024 9:12 AM CDT) Bilirubin Direct 0.22 0.00 - 0.30 mg/dL 03/09/2024 9:59 AM CDT LABORATORY Bilirubin Total 0.5 <=1.2 mg/dL 03/09/2024 9:59 AM CDT LABORATORY Blood VENOUS LINE / Unknown Venipuncture / Unknown 03/09/2024 9:12 AM CDT 03/09/2024 9:26 AM CDT Antonino Cheek MD LAB - BLOOD ORDERABL ES LABORATORY [facility] [address] Lab (1st floor, no room number) [place] [address], [facility] * Lactate Dehydrogenase (03/09/2024 9:12 AM CDT) Lactate Dehydrogenase 226 0 - 250 U/L 03/09/2024 9:59 AM CDT LABORATORY Blood VENOUS LINE / Unknown Venipuncture / Unknown 03/09/2024 9:12 AM CDT 03/09/2024 9:26 AM CDT Antonino Cheek MD LAB - BLOOD ORDERABL ES LABORATORY [facility] [address] Lab (1st floor, no room number) [place] [phone] [place] [address] * INR (03/09/2024 9:12 AM CDT) INR 1.13 0.85 - 1.15 03/09/2024 9:41 AM CDT LABORATORY Blood VENOUS LINE / Unknown Venipuncture / Unknown 03/09/2024 9:12 AM CDT 03/09/2024 9:26 AM CDT Eileen Earl MD LAB - BLOOD ORDERA BLES Performing Organization Address [facility]/ZIP Co de Phone Number LABORATORY [facility] [address] Lab (1st floor, no room number) [address] [place] [address] * Glucose by meter (03/09/2024 7:55 AM CDT) GLUCOSE BY METER POCT 91 70 - 99 mg/dL 03/09/2024 8:04 AM CDT LABORATORY POC Comment:Dr/RN Notified Blood, Capillary BLOOD SPECIMEN / Unknown 03/09/2024 7:55 AM CDT 03/09/2024 8:04 AM CDT Ron Tripathi MD LAB - BEAKER POCT LABORATORY POC [facility] Lab [address] Lab (1st floor, no room number) [address] [place] [address] * (ABNORMAL) Renal panel (03/09/2024 5:49 AM [...] 70 - 99 mg/dL 03/09/2024 6:18 AM T LABORATORY Urea Nitrogen 34.6(H) 8.0 - 23.0 [...] 2.5 - 4.5 mg/dL 03/09/2024 6:18 AM T LABORATORY Blood VENOUS LINE / Unknown Venipuncture / Unknown 03/09/2024 5:49 AM CDT 03/09/2024 5:57 AM CDT Eileen Earl MD LAB - BLOOD ORDERA BLES LABORATORY [facility] [address] Lab (1st floor, no room number) [address] * (ABNORMAL) Hemoglobin (03/09/2024 5:49 AM CDT) Hemoglobin 7.5(L) 13.3 - 17.7 g/dL 03/09/2024 6:00 AM CDT RH LABORATORY Blood VENOUS LINE / Unknown Venipuncture / Unknown 03/09/2024 5:49 AM CDT 03/09/2024 5:57 AM CDT Ron Tripathi MD LAB - BLOOD ORDERABL ES Performing Organization Address City/[facility]/ZIP Co de Phone Number [facility] Lab [address] Lab (1st floor, no room number) [address] * (ABNORMAL) Glucose by meter (03/09/2024 4:31 AM CDT) GLUCOSE BY METER POCT 112(H) 70 - 99 mg/dL 03/09/2024 4:37 AM CDT LABORATORY POC Blood, Capillary BLOOD SPECIMEN / Unknown 03/09/2024 4:31 AM CDT 03/09/2024 4:37 AM CDT Ron DEAN - BEAKER POCT Performing Organization Address City/[facility]/ZIP Co de Phone Number LABORATORY [facility] Lab [address] Lab (1st floor, no room number) [address] * (ABNORMAL) Glucose by meter (03/09/2024 12:26 AM CDT) GLUCOSE BY METER POCT 124(H) 70 - 99 mg/dL 03/09/2024 12:32 AM CDT LABORATORY POC Blood, Capillary BLOOD SPECIMEN / Unknown 03/09/2024 12:26 AM CDT 03/09/2024 12:32 AM CDT Ron DEAN - BEAKER POCT Performing Organization Address City/[facility]/ZIP Co de Phone Number LABORATORY [facility] Lab [address] Lab (1st floor, no room number) [place] [phone] [place] [address] * (ABNORMAL) Hemoglobin (03/08/2024 10:35 PM CDT) Hemoglobin 7.5(L) 13.3 - 17.7 g/dL 03/08/2024 10:48 PM CDT RH LABORATORY Blood BLOOD SPECIMEN / Unknown Venipuncture / Unknown 03/08/2024 10:35 PM CDT 03/08/2024 10:45 PM CDT Antonino Cheek MD LAB - BLOOD ORDERABL ES Performing Organization Address [facility]/ZIP Co de Phone Number [facility] Lab [address] Lab (1st floor, no room number) [place] [phone] [place] [address] * (ABNORMAL) Glucose by meter (03/08/2024 10:09 PM CDT) GLUCOSE BY METER POCT 116(H) 70 - 99 mg/dL 03/08/2024 10:15 PM CDT LABORATORY POC Blood, Capillary BLOOD SPECIMEN / Unknown 03/08/2024 10:09 PM CDT 03/08/2024 10:15 PM CDT Ron Tripathi MD LAB - BEAKER POCT Performing Organization Address City/[facility]/ZIP Co de Phone Number LABORATORY [facility] [address] Lab (1st floor, no room number) [place] [phone] * (ABNORMAL) Glucose by meter (03/08/2024 8:11 PM CDT) GLUCOSE BY METER POCT 114(H) 70 - 99 mg/dL 03/08/2024 8:18 PM CDT LABORATORY POC Blood, Capillary BLOOD SPECIMEN / Unknown 03/08/2024 8:11 PM CDT 03/08/2024 8:18 PM CDT Ron Tripathi MD LAB - BEAKER POCT LABORATORY [facility] Lab [address] Lab (1st floor, no room number) [place] [phone] [place] [address] * Glucose by meter (03/08/2024 5:59 PM CDT) GLUCOSE BY METER POCT 84 70 - 99 mg/dL 03/08/2024 6:05 PM CDT RH LABORATORY POC Blood, Capillary BLOOD SPECIMEN / Unknown 03/08/2024 5:59 PM CDT 03/08/2024 6:05 PM CDT Ron Tripathi MD LAB - BEAKER POCT Performing Organization Address City/[facility]/ZIP Co de Phone Number LABORATORY [facility] Lab [address] Lab (1st floor, no room number) [place] [phone] [place] [address] * Glucose by meter (03/08/2024 5:28 PM CDT) GLUCOSE BY METER POCT 99 70 - 99 mg/dL 03/08/2024 5:35 PM CDT RH LABORATORY POC Blood, Capillary BLOOD SPECIMEN / Unknown 03/08/2024 5:28 PM CDT 03/08/2024 5:35 PM CDT Ron Tripathi MD LAB - BEAKER POCT LABORATORY [facility] Lab [address] Lab (1st floor, no room number) [place] [phone] [place] [address] * Glucose by meter (03/08/2024 5:02 PM CDT) GLUCOSE BY METER POCT 79 70 - 99 mg/dL 03/08/2024 5:08 PM CDT RH LABORATORY POC Blood, Capillary BLOOD SPECIMEN / Unknown 03/08/2024 5:02 PM CDT 03/08/2024 5:08 PM CDT Ron Tripathi MD LAB - BEAKER POCT Performing Organization Address City/[facility]/ZIP Co de Phone Number LABORATORY [facility] [address] Lab (1st floor, no room number) [place] [phone] [place] [address] * (ABNORMAL) Glucose by meter (03/08/2024 4:36 PM CDT) GLUCOSE BY METER POCT 63(L) 70 - 99 mg/dL 03/08/2024 4:43 PM CDT LABORATORY POC Blood, Capillary BLOOD SPECIMEN / Unknown 03/08/2024 4:36 PM CDT 03/08/2024 4:43 PM CDT Ron Tripathi MD LAB - BEAKER POCT Performing Organization Address [facility]/ZIP Co de Phone Number LABORATORY [facility] Lab [address] Lab (1st floor, no room number) [place] [phone] [place] [address] * (ABNORMAL) Glucose by meter (03/08/2024 3:59 PM CDT) GLUCOSE BY METER POCT 68(L) 70 - 99 mg/dL 03/08/2024 4:06 PM CDT LABORATORY POC Blood, Capillary BLOOD SPECIMEN / Unknown 03/08/2024 3:59 PM CDT 03/08/2024 4:06 PM CDT Narrative Authorizing Provider Result Lauren Tripathi MD LAB - BEAKER POCT Performing Organization Address City/[facility]/ZIP Co de Phone Number LABORATORY [facility] Lab [address] Lab (1st floor, no room number) [place] [phone] [place] [address] * (ABNORMAL) Hemoglobin (03/08/2024 2:42 PM CDT) Hemoglobin 8.1(L) 13.3 - 17.7 g/dL 03/08/2024 3:25 PM CDT LABORATORY Blood VASCULAR LINE / Unknown Venipuncture / Unknown 03/08/2024 2:42 PM CDT 03/08/2024 2:58 PM CDT Antonino Cheek MD LAB - BLOOD ORDERABL ES LABORATORY [facility] Lab [address] Lab (1st floor, no room number) [place] [address], [facility] * (ABNORMAL) Glucose by meter (03/08/2024 2:16 PM CDT) GLUCOSE BY METER POCT 104(H) 70 - 99 mg/dL 03/08/2024 2:23 PM CDT RH LABORATORY POC Comment:Dr/RN Notified Blood, Capillary BLOOD SPECIMEN / Unknown 03/08/2024 2:16 PM CDT 03/08/2024 2:23 PM CDT Ron DEAN - BEAKER POCT LABORATORY [facility] [address] Lab (1st floor, no room number) [place] [address], [facility] * (ABNORMAL) Glucose by meter (03/08/2024 1:56 PM CDT) GLUCOSE BY METER POCT 52(L) 70 - 99 mg/dL 03/08/2024 2:03 PM CDT LABORATORY POC Blood, Capillary BLOOD SPECIMEN / Unknown 03/08/2024 1:56 PM CDT 03/08/2024 2:03 PM CDT Ron DEAN - BEAKER POCT LABORATORY [facility] [address] Lab (1st floor, no room number) [place] [address], [facility] * (ABNORMAL) Glucose by meter (03/08/2024 1:36 PM CDT) GLUCOSE BY METER POCT 69(L) 70 - 99 mg/dL 03/08/2024 1:49 PM CDT LABORATORY POC Blood, venous BLOOD SPECIMEN / Unknown 03/08/2024 1:36 PM CDT 03/08/2024 1:49 PM CDT Ron Tripathi MD LAB - [facility] POCT RH LABORATORY POC [facility] Lab [address] Lab (1st floor, no room number) [place] [address], [facility] * Surgical Pathology Exam (03/08/2024 1:26 PM CDT) Case Report Surgical Pathology Report ? Case: [id number] ? Authorizing Provider: ??Eileen Earl MD ?Collected: ? 03/08/2024 01:26 PM ? Ordering Location: ? [facility] ?Received: ?03/08/2024 02:01 PM ? End[facility] [place] ? Pathologist: ? Jae Cardona MD ? Specimen: ?Rectum, Rectum polyp ? 03/09/2024 10:13 AM [facility] Final Diagnosis Rectum, polypectomy: --Hyperplastic polyp. 03/09/2024 10:13 AM [facility] Clinical Information Procedure: Colonoscopy with polypectomy by cold biopsy forceps Pre-op Diagnosis: Anemia, unspecified type [D64.9] Post-op Diagnosis: D64.9 - Anemia, unspecified type [ICD-10-CM] 03/09/2024 10:13 AM [facility] Gross Description A(1). Rectum, Rectum polyp: The specimen is received in formalin, labeled with the patient's name, medical record number and other identifying information and designated ? rectum polyp? . It consists of 2 english soft tissue fragments ranging from 0.1-0.4 cm. Entirely submitted in one cassette. MARY Gates(ASCP)CM 03/08/2024 2:57 PM 03/09/2024 10:13 AM [facility] Microscopic Description Microscopic examination was performed. 03/09/2024 10:13 AM [facility] Performing Labs The technical component of this testing was completed at [facility]. Stain controls for all stains resulted within this report have been reviewed and show appropriate reactivity. 03/09/2024 10:13 AM T LABORATORY Case Images 03/09/2024 10:13 AM T LABORATORY Polyp RECTUM PART / Unknown 03/08/2024 1:26 PM CDT 03/08/2024 2:01 PM CDT Eileen DEAN - DAVID VALENCIA LABORATORY [facility] Acute Care Lab [address] [facility] Lab (1st floor, no room number) [place] [id number], [facility] * COLONOSCOPY (03/08/2024 1:04 PM CDT) [facility] COLONOSCOPY [facility] Patient Name: Herminio Victor ? [...] continuously. The ?Olympus Adult Colonoscope, Model # CF-IP351K, ?Censitrac # [id number] was introduced through the ?anus and advanced [...] Note Initiated On: 03/08/2024 1:04 PM MRN: ?[id number] Procedure Date: ? 03/08/2024 1:04:50 PM Scope Withdrawal Time: 0 hours 11 minutes 55 seconds Total Procedure Duration: 0 hours 17 minutes 23 seconds Estimated Blood Loss: ? Scope In: 1:12:27 PM Scope Out: 1:29:50 PM RADIOLOGY RESULTS 03/08/2024 1:04 PM CDT Eileen Earl MD PROCEDURES Performing Organization Address [facility] Co de Phone Number RADIOLOGY RESULTS * (ABNORMAL) Glucose by meter (03/08/2024 11:35 AM CDT) GLUCOSE BY METER POCT 112(H) 70 - 99 mg/dL 03/08/2024 11:41 AM CDT LABORATORY POC Blood, Capillary BLOOD SPECIMEN / Unknown 03/08/2024 11:35 AM CDT 03/08/2024 11:41 AM CDT Ron Tripathi MD [facility] Performing Organization Address City/State/[facility] Co de Phone Number LABORATORY [facility] Acute Care Lab [address] Lab (1st floor, no room number) [place] [phone] [place] [address] * (ABNORMAL) Glucose by meter (03/08/2024 11:11 AM CDT) GLUCOSE BY METER POCT 65(L) 70 - 99 mg/dL 03/08/2024 11:17 AM CDT RH LABORATORY POC Blood, Capillary BLOOD SPECIMEN / Unknown 03/08/2024 11:11 AM CDT 03/08/2024 11:17 AM CDT Ron HERNANDEZ POCT LABORATORY [facility] Care Lab [address] Lab (1st floor, no room number) [place] [phone] [place] [address] * CONDITIONAL Transfuse red blood cells (unit) 1; No special requirements (03/08/2024 10:44 AM CDT) Eileen Earl MD BLOOD TRANSFUSION ORDERABLES * Glucose by meter (03/08/2024 8:50 AM CDT) GLUCOSE BY METER POCT 85 70 - 99 mg/dL 03/08/2024 8:56 AM CDT RH LABORATORY POC Blood, Capillary BLOOD SPECIMEN / Unknown 03/08/2024 8:50 AM CDT 03/08/2024 8:56 AM CDT Ron HERNANDEZ POCT LABORATORY [facility] Care Lab [address] Lab (1st floor, no room number) [address] [place] [address] * CONDITIONAL Prepare red blood cells (unit) (03/08/2024 7:50 AM CDT) Blood Component Type Red Blood Cells RH BLOOD BANK Product Code [id number] RH BLOO D BANK Unit Status Transfused RH BLOO D BANK Unit Number [id number] RH B LOOD BANK CROSSMATCH Compatible RH BLOOD BANK CODING SYSTEM [id number] RH BLO OD BANK ISSUE DATE AND TIME [id number] RH BLOOD BANK UNIT ABO/RH O+ RH BLOOD BANK UNIT TYPE ISBT 5100 RH BL OOD BANK 03/08/2024 7:50 AM CDT Eileen Earl MD BLOOD BANK PRODUCT ORDERABLES RH BLOOD BANK [address] [place] [address], [facility] * (ABNORMAL) Renal panel (03/08/2024 6:25 AM [...] - BLOOD ORDERA BLES Performing Organization Address [facility]/ZIP Co de Phone Number LABORATORY [facility] Lab [address] Lab (1st floor, no room number) [address] * (ABNORMAL) INR (03/08/2024 6:25 AM CDT) INR 1.18(H) 0.85 - 1.15 03/08/2024 7:03 AM CDT RH LABORATORY Blood STRUCTURE OF RIGHT UPPER LIMB / Unknown Venipuncture / Unknown 03/08/2024 6:25 AM CDT 03/08/2024 6:39 AM CDT Eileen Earl MD LAB - BLOOD ORDERA BLES Performing Organization Address [facility] de Phone Number LABORATORY [facility] Lab [address] Lab (1st floor, no room number) [address] [place] [address] * (ABNORMAL) Hemoglobin (03/08/2024 6:25 AM CDT) Hemoglobin 6.7(LL) 13.3 - 17.7 g/dL 03/08/2024 7:01 AM CDT RH LABORATORY Blood STRUCTURE OF RIGHT UPPER LIMB / Unknown Venipuncture / Unknown 03/08/2024 6:25 AM CDT 03/08/2024 6:39 AM CDT Antonino Cheek MD LAB - BLOOD ORDERABL ES Performing Organization Address City/[facility]/ZIP Co de Phone Number [facility] Acute Care Lab [address] Lab (1st floor, no room number) [place] [address] * (ABNORMAL) Glucose by meter (03/08/2024 6:00 AM CDT) GLUCOSE BY METER POCT 111(H) 70 - 99 mg/dL 03/08/2024 6:07 AM CDT RH LABORATORY POC Blood, Capillary BLOOD SPECIMEN / Unknown 03/08/2024 6:00 AM CDT 03/08/2024 6:07 AM CDT Narrative Authorizing Provider Result Lauren Tripathi MD LAB - BEAKER POCT Performing Organization Address [facility]/State/ZIP Co de Phone Number [facility] Lab [address] Lab (1st floor, no room number) [place] [address] * Glucose by meter (03/08/2024 3:08 AM CDT) GLUCOSE BY METER POCT 90 70 - 99 mg/dL 03/08/2024 3:15 AM CDT LABORATORY POC Blood, Capillary BLOOD SPECIMEN / Unknown 03/08/2024 3:08 AM CDT 03/08/2024 3:15 AM CDT Narrative Authorizing Provider Result Lauren DEAN - BEXIANG POCT LABORATORY [facility] Acute Care Lab [address] Lab (1st floor, no room number) [place] [address], [facility] * Glucose by meter (03/08/2024 2:01 AM CDT) GLUCOSE BY METER POCT 76 70 - 99 mg/dL 03/08/2024 2:07 AM CDT LABORATORY POC Blood, Capillary BLOOD SPECIMEN / Unknown 03/08/2024 2:01 AM CDT 03/08/2024 2:07 AM CDT Ron Biala MD LAB - BEAKER POCT RH LABORATORY POC [facility] Acute Care Lab [address] Lab (1st floor, no room number) [place] [address] * (ABNORMAL) Hemoglobin (03/08/2024 1:12 AM CDT) Hemoglobin 7.6(L) 13.3 - 17.7 g/dL 03/08/2024 1:33 AM CDT LABORATORY Blood STRUCTURE OF LEFT HAND / Unknown Venipuncture / Unknown 03/08/2024 1:12 AM CDT 03/08/2024 1:30 AM CDT Antonino Cheek MD LAB - BLOOD ORDERABL ES Performing Organization Address [facility]/ZIP Co de Phone Number LABORATORY [facility] Acute Care Lab [address] Lab (1st floor, no room number) [place] [address] * US Upper Extremity Venous Duplex Right [...] US UPPER EXTREMITY VENOUS DUPLEX RIGHT LOCATION: [facility] DATE: 03/07/2024 INDICATION: Swelling, looking for DVT [...] US UPPER EXTREMITY VENOUS DUPLEX RIGHT LOCATION: [facility] DATE: 03/07/2024 INDICATION: Swelling, looking for DVT [...] PM CDT 03/07/2024 9:38 PM CDT Ron Tripathi MD LAB - [facility] POCT LABORATORY [facility] Acute Care Lab [address] Lab (1st floor, no room number) [place] [address] * (ABNORMAL) Hemoglobin (03/07/2024 6:58 PM CDT) Hemoglobin 8.6(L) 13.3 - 17.7 g/dL 03/07/2024 8:44 PM CDT LABORATORY Blood STRUCTURE OF RIGHT HAND / Unknown Venipuncture / Unknown 03/07/2024 6:58 PM CDT 03/07/2024 7:06 PM CDT Antonino Cheek MD LAB - BLOOD ORDERABL ES Performing Organization Address City/[facility]/ZIP Co de Phone Number [facility] Acute Care Lab [address] Lab (1st floor, no room number) [place] [phone] [place] [address] * Glucose by meter (03/07/2024 6:56 PM CDT) GLUCOSE BY METER POCT 86 70 - 99 mg/dL 03/07/2024 7:03 PM CDT RH LABORATORY POC Blood, Capillary BLOOD SPECIMEN / Unknown 03/07/2024 6:56 PM CDT 03/07/2024 7:03 PM CDT Ron Tripathi MD LAB - BEAKER POCT Performing Organization Address City/[facility]/ZIP Co de Phone Number LABORATORY [facility] Acute Care Lab [address] Lab (1st floor, no room number) [place] [phone] [place] [address] * Glucose by meter (03/07/2024 5:03 PM CDT) GLUCOSE BY METER POCT 79 70 - 99 mg/dL 03/07/2024 5:10 PM CDT LABORATORY POC Blood, Capillary BLOOD SPECIMEN / Unknown 03/07/2024 5:03 PM CDT 03/07/2024 5:10 PM CDT Ron DEAN - BEAKER POCT Performing Organization Address City/[facility]/ZIP Co de Phone Number [facility] Acute Care Lab [address] Lab (1st floor, no room number) [place] [phone] [place] [address] * Single Lumen Midline Placement (03/07/2024 1:34 PM CDT) Narrative Patricio Bocanegra RN - 03/07/2024 1:34 PM CDT Patricio Bocanegra RN ? 03/07/2024 ??1:41 PM [facility] Single Lumen Midline Placement Date/Time: [...] procedure a time out was called ?? [place] Protocol: the Joint Commission [place] Protocol was followed ?? Preparation: Patient was [...] size: 4 Fr Brand: Bard Lot number: [id number] Placement method: venipuncture, MST and ultrasound Number [...] BEAKER POCT Performing Organization Address [facility]/ZIP Co de Phone Number LABORATORY [facility] Lab [address] Lab (1st floor, no room number) [address] [place] [address] * Glucose by meter (03/07/2024 8:49 AM CDT) GLUCOSE BY METER POCT 77 70 - 99 mg/dL 03/07/2024 8:56 AM CDT LABORATORY POC Blood, Capillary BLOOD SPECIMEN / Unknown 03/07/2024 8:49 AM CDT 03/07/2024 8:56 AM CDT Ron DEAN - BEXIANG POCT Performing Organization Address [facility] de Phone Number LABORATORY [facility] Lab [address] Lab (1st floor, no room number) [address] * (ABNORMAL) Renal panel (03/07/2024 6:21 [...] - 99 mg/dL 03/07/2024 7:43 AM CDT RH LABORATORY Urea Nitrogen 55.9(H) 8.0 - 23.0 mg/dL 03/07/2024 7:43 AM CDT RH LABORATORY Creatinine 7.68(H) 0.67 - 1.17 mg/dL 03/07/2024 7:43 AM CDT RH LABORATORY GFR Estimate 7(L) [...] MD LAB - BLOOD ORDERA BLES LABORATORY [facility] Acute Care Lab [address] Lab (1st floor, no room number) [place] [address] * (ABNORMAL) INR (03/07/2024 6:21 AM CDT) INR 1.28(H) 0.85 - 1.15 03/07/2024 7:17 AM CDT LABORATORY Blood BLOOD SPECIMEN / Unknown Venipuncture / Unknown 03/07/2024 6:21 AM CDT 03/07/2024 7:06 AM CDT Eileen Earl MD LAB - BLOOD ORDERA BLES Performing Organization Address City/[facility]/ZIP Co de Phone Number [facility] Care Lab [address] Lab (1st floor, no room number) [place] [address] * (ABNORMAL) Hemoglobin (03/07/2024 6:21 AM CDT) Hemoglobin 7.8(L) 13.3 - 17.7 g/dL 03/07/2024 7:11 AM CDT RH LABORATORY Blood BLOOD SPECIMEN / Unknown Venipuncture / Unknown 03/07/2024 6:21 AM CDT 03/07/2024 7:06 AM CDT Eileen Earl MD LAB - BLOOD ORDERA BLES Performing Organization Address [facility]/ZIP Co de Phone Number [facility] Care Lab [address] Lab (1st floor, no room number) [place] [address] * Glucose by meter (03/07/2024 6:19 AM CDT) GLUCOSE BY METER POCT 98 70 - 99 mg/dL 03/07/2024 6:26 AM CDT LABORATORY POC Blood, Capillary BLOOD SPECIMEN / Unknown 03/07/2024 6:19 AM CDT 03/07/2024 6:26 AM CDT Ron Tripathi MD LAB - BEAKER POCT Performing Organization Address City/[facility]/ZIP Co de Phone Number LABORATORY [facility] Acute Care Lab [address] Lab (1st floor, no room number) [place] [address] * Glucose by meter (03/07/2024 4:05 AM CDT) GLUCOSE BY METER POCT 78 70 - 99 mg/dL 03/07/2024 4:11 AM CDT LABORATORY POC Blood, Capillary BLOOD SPECIMEN / Unknown 03/07/2024 4:05 AM CDT 03/07/2024 4:11 AM CDT Ron Tripathi MD LAB - BEAKER POCT Performing Organization Address City/[facility]/ZIP Co de Phone Number LABORATORY POC [facility] Lab [address] Lab (1st floor, no room number) [place] [phone] [place] [address] * (ABNORMAL) Hemoglobin (03/07/2024 1:04 AM CDT) Hemoglobin 7.6(L) 13.3 - 17.7 g/dL 03/07/2024 1:17 AM CDT RH LABORATORY Blood STRUCTURE OF LEFT HAND / Unknown Venipuncture / Unknown 03/07/2024 1:04 AM CDT 03/07/2024 1:14 AM CDT Eileen Earl MD LAB - BLOOD ORDERA BLES Performing Organization Address City/[facility]/ZIP Co de Phone Number LABORATORY [facility] Lab [address] Lab (1st floor, no room number) [place] [address] * (ABNORMAL) Glucose by meter (03/07/2024 12:40 AM CDT) GLUCOSE BY METER POCT 116(H) 70 - 99 mg/dL 03/07/2024 12:48 AM CDT LABORATORY POC Blood, Capillary BLOOD SPECIMEN / Unknown 03/07/2024 12:40 AM CDT 03/07/2024 12:48 AM CDT Ron DEAN - BEAKER POCT LABORATORY POC [facility] Lab [address] Lab (1st floor, no room number) [place] [phone] * (ABNORMAL) Glucose by meter (03/06/2024 9:36 PM CDT) GLUCOSE BY METER POCT 112(H) 70 - 99 mg/dL 03/06/2024 9:44 PM CDT RH LABORATORY POC Blood, Capillary BLOOD SPECIMEN / Unknown 03/06/2024 9:36 PM CDT 03/06/2024 9:44 PM CDT Narrative Authorizing Provider Result Lauren Tripathi MD LAB - BEAKER POCT LABORATORY [facility] Care Lab [address] Lab (1st floor, no room number) [address] * Extra Serum Separator Tube (SST) (03/06/2024 7:55 PM CDT) Hold Specimen JIC 03/06/2024 9:03 PM CDT LABORATORY Blood BLOOD SPECIMEN / Unknown Venipuncture / Unknown 03/06/2024 7:55 PM CDT 03/06/2024 7:55 PM CDT Narrative Authorizing Provider Result Lauren Tripathi MD LAB - BLOOD ORDERABL ES Performing Organization Address [facility]/ZIP Co de Phone Number [facility] Lab [address] Lab (1st floor, no room number) [address] * (ABNORMAL) Glucose by meter (03/06/2024 6:37 PM CDT) GLUCOSE BY METER POCT 112(H) 70 - 99 mg/dL 03/06/2024 6:45 PM CDT LABORATORY POC Blood, Capillary BLOOD SPECIMEN / Unknown 03/06/2024 6:37 PM CDT 03/06/2024 6:45 PM CDT Narrative Authorizing Provider Result Lauren DEAN - BEAKER POCT Performing Organization Address [facility]/ZIP Co de Phone Number LABORATORY [facility] Lab [address] Lab (1st floor, no room number) [address] * (ABNORMAL) CBC with platelets and [...] MD LAB - BLOOD ORDERABL ES LABORATORY [facility] Lab [address] [facility] Lab (1st floor, no room number) [address] * (ABNORMAL) Glucose (03/06/2024 4:28 PM CDT) Glucose 196(H) 70 - 99 mg/dL 03/06/2024 4:54 PM CDT LABORATORY Blood STRUCTURE OF LEFT UPPER LIMB / Unknown Venipuncture / Unknown 03/06/2024 4:28 PM CDT 03/06/2024 4:32 PM CDT Antonino Cheek MD LAB - BLOOD ORDERABL ES LABORATORY [facility] Lab [address] Lab (1st floor, no room number) [address] * (ABNORMAL) Basic metabolic panel (03/06/2024 4:28 [...] MD LAB - BLOOD ORDERABL ES LABORATORY [facility] Acute Care Lab [address] [facility] Lab (1st floor, no room number) [place] [address] * (ABNORMAL) Hemoglobin (03/06/2024 4:28 PM CDT) [facility] Signature Hemoglobin 7.4(L) 13.3 - 17.7 g/dL 03/06/2024 4:47 PM CDT RH LABORATORY Blood STRUCTURE OF LEFT UPPER LIMB / Unknown Venipuncture / Unknown 03/06/2024 4:28 PM CDT 03/06/2024 4:33 PM CDT Eileen Earl MD LAB - BLOOD ORDERA BLES Performing Organization Address [facility]/ZIP Co de Phone Number LABORATORY [facility] Care Lab [address] Lab (1st floor, no room number) [address] * (ABNORMAL) Glucose by meter (03/06/2024 4:26 PM CDT) GLUCOSE BY METER POCT 196(H) 70 - 99 mg/dL 03/06/2024 4:33 PM CDT RH LABORATORY POC Blood, Capillary BLOOD SPECIMEN / Unknown 03/06/2024 4:26 PM CDT 03/06/2024 4:33 PM CDT Ron DEAN - BEAKER POCT Performing Organization Address [facility]/ZIP Co de Phone Number LABORATORY [facility] Lab [address] Lab (1st floor, no room number) [address] * (ABNORMAL) Glucose by meter (03/06/2024 4:17 PM CDT) GLUCOSE BY METER POCT 38(LL) 70 - 99 mg/dL 03/06/2024 4:24 PM CDT RH LABORATORY POC Comment:/LINDA Notified Blood, Capillary BLOOD SPECIMEN / Unknown 03/06/2024 4:17 PM CDT 03/06/2024 4:24 PM CDT Ron DEAN - DAVID POCT Performing Organization Address [facility]/ZIP Co de Phone Number LABORATORY [facility] Lab [address] Lab (1st floor, no room number) [place] [phone] [place] [address] * (ABNORMAL) Glucose by meter (03/06/2024 4:10 PM CDT) GLUCOSE BY METER POCT 47(LL) 70 - 99 mg/dL 03/19/2024 8:02 AM CDT RH LABORATORY POC Comment:/LINDA Notified Blood, Capillary BLOOD SPECIMEN / Unknown 03/06/2024 4:10 PM CDT 03/19/2024 8:02 AM CDT Narrative Authorizing Provider Result Lauren Tripathi MD LAB - BEAKER POCT Performing Organization Address City/[facility]/ZIP Co de Phone Number LABORATORY [facility] Lab [address] Lab (1st floor, no room number) [place] [phone], [facility] * (ABNORMAL) Glucose by meter (03/06/2024 3:18 PM CDT) GLUCOSE BY METER POCT 64(L) 70 - 99 mg/dL 03/06/2024 3:26 PM CDT LABORATORY POC Blood, Capillary BLOOD SPECIMEN / Unknown 03/06/2024 3:18 PM CDT 03/06/2024 3:26 PM CDT Ron Tripathi MD LAB - BEAKER POCT Performing Organization Address [facility]/ZIP Co de Phone Number LABORATORY [facility] Lab [address] Lab (1st floor, no room number) [place] [address], [facility] * (ABNORMAL) Glucose by meter (03/06/2024 3:03 PM CDT) GLUCOSE BY METER POCT 63(L) 70 - 99 mg/dL 03/06/2024 3:11 PM CDT LABORATORY POC Blood, Capillary BLOOD SPECIMEN / Unknown 03/06/2024 3:03 PM CDT 03/06/2024 3:11 PM CDT Narrative Authorizing Provider Result Lauren Tripathi MD LAB - BEAKER POCT Performing Organization Address City/[facility]/ZIP Co de Phone Number LABORATORY [facility] Lab [address] Lab (1st floor, no room number) [place] [phone] [place] [address] * (ABNORMAL) Hemoglobin - Pre-Op (03/06/2024 1:23 PM CDT) Hemoglobin 7.6(L) 13.3 - 17.7 g/dL 03/06/2024 1:39 PM CDT LABORATORY Blood STRUCTURE OF RIGHT UPPER LIMB / Unknown Venipuncture / Unknown 03/06/2024 1:23 PM CDT 03/06/2024 1:34 PM CDT Antonino Cheek MD LAB - BLOOD ORDERABL ES LABORATORY [facility] Acute Care Lab [address] Lab (1st floor, no room number) [place] [address] * UPPER GI ENDOSCOPY (03/06/2024 1:21 PM CDT) [facility] Upper GI Endoscopy [facility] Patient Name: Herminio Victor ? [...] ?Olympus Gastroscope, Model # [id number]-H190, Censitrac # ?[id number] was introduced through the mouth, and ?advanced [...] Note Initiated On: 03/06/2024 1:21 PM MRN: ?[id number] Procedure Date: ? 03/06/2024 1:21:29 PM Total Procedure Duration: 0 hours 5 minutes 6 seconds Estimated Blood Loss: ? Scope In: 2:15:42 PM Scope Out: 2:20:48 PM RADIOLOGY RESULTS 03/06/2024 1:21 PM CDT Eileen Earl MD PROCEDURES RADIOLOGY RESULTS * Glucose by meter (03/06/2024 12:26 PM CDT) GLUCOSE BY METER POCT 74 70 - 99 mg/dL 03/06/2024 12:33 PM CDT LABORATORY POC Blood, Capillary BLOOD SPECIMEN / Unknown 03/06/2024 12:26 PM CDT 03/06/2024 12:33 PM CDT Ron DEAN - DAVID POCT LABORATORY [facility] Lab [address] Lab (1st floor, no room number) [place] [address] * Transfuse red blood cells (unit) (03/06/2024 [...] 03/06/2024 12:08 PM CDT Ron DEAN - DAVID POCT LABORATORY [facility] Lab [address] Lab (1st floor, no room number) [place] [address] * Adult Type and Screen (03/06/2024 8:53 AM CDT) ABO/RH(D) O POS 03/06/2024 7:57 AM CDT RH BLOOD BANK Antibody Screen Negative Negative 03/06/2024 7:57 AM CDT RH BLOOD BANK SPECIMEN EXPIRATION DATE [id number] 03/06/2024 7:57 AM CDT RH BLOOD BANK Blood STRUCTURE OF RIGHT HAND / Unknown Venipuncture / Unknown 03/06/2024 8:53 AM CDT 03/06/2024 9:00 AM CDT Antonino Cheek MD LAB - BLOOD BANK SHANNON T ORDER RH BLOOD BANK [address] [place] [address] * Glucose by meter (03/06/2024 7:57 AM CDT) GLUCOSE BY METER POCT 87 70 - 99 mg/dL 03/06/2024 8:04 AM CDT RH LABORATORY POC Blood, Capillary BLOOD SPECIMEN / Unknown 03/06/2024 7:57 AM CDT 03/06/2024 8:04 AM CDT Ron Tripathi MD LAB - BEAKER POCT Performing Organization Address City/[facility]/ZIP Co de Phone Number RH LABORATORY POC [facility] [address] [facility] ([facility]st floor, no room number) [place] [address] * Prepare red blood cells (unit) (03/06/2024 7:50 AM CDT) Blood Component Type Red Blood Cells RH BLOOD BANK Product Code [id number] RH BLOO D BANK Unit Status Transfused RH BLOO D BANK Unit Number [id number] RH B LOOD BANK CROSSMATCH Compatible RH BLOOD BANK CODING SYSTEM [id number] RH BLO OD BANK ISSUE DATE AND TIME [id number] RH BLOOD BANK UNIT ABO/RH O+ RH BLOOD BANK UNIT TYPE ISBT 5100 RH BL OOD BANK 03/06/2024 7:50 AM CDT Antonino Cheek MD BLOOD BANK PRODUCT O RDERABLES Performing Organization Address City/[facility]/ZIP Co de Phone Number RH BLOOD BANK [address] [place] [address] * (ABNORMAL) Renal panel (03/06/2024 6:54 AM CDT) Sodium 124(L) 135 - 145 mmol/L 03/06/2024 7:32 AM CDT RH LABORATORY Comment:Reference intervals for [...] MD LAB - BLOOD ORDERA BLES LABORATORY [facility] Acute Care Lab [address] [facility] Lab (1st floor, no room number) [place] [address], [facility] * (ABNORMAL) Hemoglobin (03/06/2024 6:54 AM CDT) Hemoglobin 7.0(L) 13.3 - 17.7 g/dL 03/06/2024 7:04 AM CDT RH LABORATORY Blood STRUCTURE OF RIGHT HAND / Unknown Venipuncture / Unknown 03/06/2024 6:54 AM CDT 03/06/2024 7:00 AM CDT Antonino Cheek MD LAB - BLOOD ORDERABL ES [facility] Acute Care Lab [address] Lab (1st floor, no room number) [place] [address] * (ABNORMAL) INR (03/06/2024 6:54 AM CDT) INR 1.51(H) 0.85 - 1.15 03/06/2024 7:19 AM CDT RH LABORATORY Blood STRUCTURE OF RIGHT HAND / Unknown Venipuncture / Unknown 03/06/2024 6:54 AM CDT 03/06/2024 7:00 AM CDT Eileen Earl MD LAB - BLOOD ORDERA BLES Performing Organization Address City/[facility]/ZIP Co de Phone Number [facility] Acute Care Lab [address] Lab (1st floor, no room number) [place] [address], [facility] * Glucose by meter (03/06/2024 4:05 AM CDT) GLUCOSE BY METER POCT 90 70 - 99 mg/dL 03/06/2024 4:21 AM CDT LABORATORY POC Blood, Capillary BLOOD SPECIMEN / Unknown 03/06/2024 4:05 AM CDT 03/06/2024 4:21 AM CDT Ron Tripathi MD LAB - BEAKER POCT LABORATORY [facility] [address] Lab (1st floor, no room number) [address] * (ABNORMAL) Glucose by meter (03/06/2024 12:01 AM CDT) GLUCOSE BY METER POCT 101(H) 70 - 99 mg/dL 03/06/2024 12:13 AM CDT LABORATORY POC Blood, Capillary BLOOD SPECIMEN / Unknown 03/06/2024 12:01 AM CDT 03/06/2024 12:13 AM CDT Ron Tripathi MD LAB - BEAKER POCT LABORATORY [facility] Lab [address] Lab (1st floor, no room number) [address] * Glucose by meter (03/05/2024 10:01 PM CDT) GLUCOSE BY METER POCT 87 70 - 99 mg/dL 03/05/2024 10:09 PM CDT LABORATORY POC Blood, Capillary BLOOD SPECIMEN / Unknown 03/05/2024 10:01 PM CDT 03/05/2024 10:09 PM CDT Ron DEAN - BEAKER POCT Performing Organization Address City/[facility]/ZIP Co de Phone Number LABORATORY [facility] Lab [address] Lab (1st floor, no room number) [address] * (ABNORMAL) Hemoglobin (03/05/2024 6:53 PM CDT) Hemoglobin 8.4(L) 13.3 - 17.7 g/dL 03/05/2024 7:07 PM CDT LABORATORY Blood STRUCTURE OF LEFT HAND / Unknown Venipuncture / Unknown 03/05/2024 6:53 PM CDT 03/05/2024 7:02 PM CDT Antonino Cheek MD LAB - BLOOD ORDERABL ES LABORATORY [facility] [address] [facility] Lab (1st floor, no room number) [place] [address] * Glucose by meter (03/05/2024 5:47 PM CDT) GLUCOSE BY METER POCT 96 70 - 99 mg/dL 03/05/2024 5:54 PM CDT LABORATORY POC Blood, Capillary BLOOD SPECIMEN / Unknown 03/05/2024 5:47 PM CDT 03/05/2024 5:54 PM CDT Ron Tripathi MD LAB - BEAKER POCT Performing Organization Address [facility]/ZIP Co de Phone Number LABORATORY [facility] Lab [address] [facility] Lab (1st floor, no room number) [place] [address] * CONDITIONAL Transfuse red blood cells (unit) 1; No special requirements (03/05/2024 4:07 PM CDT) Eileen Earl MD BLOOD TRANSFUSION ORDERABLES * CONDITIONAL Prepare red blood cells (unit) (03/05/2024 12:47 PM CDT) Pathologist [facility] Blood Component Type Red Blood Cells RH BLOOD BANK Product Code [id number] RH BLOO D BANK Unit Status Transfused RH BLOO D BANK Unit Number [id number] RH B LOOD BANK CROSSMATCH Compatible RH BLOOD BANK CODING SYSTEM [id number] RH BLO OD BANK ISSUE DATE AND TIME [id number] RH BLOOD BANK UNIT ABO/RH O+ RH BLOOD BANK UNIT TYPE ISBT [id number] RH BL OOD BANK 03/05/2024 12:4 7 PM CDT Ron Tripathi MD BLOOD BANK PRODUCT O RDERABLES Performing Organization Address [facility]/ZIP Co de Phone Number BLOOD BANK [address] [place] [address] * (ABNORMAL) Hemoglobin (03/05/2024 12:12 PM CDT) Hemoglobin 6.9(LL) 13.3 - 17.7 g/dL 03/05/2024 12:40 PM CDT RH LABORATORY Blood STRUCTURE OF LEFT HAND / Unknown Venipuncture / Unknown 03/05/2024 12:12 PM CDT 03/05/2024 12:21 PM CDT Antonino Cheek MD LAB - BLOOD ORDERABL ES [facility] Lab [address] Lab (1st floor, no room number) [place] [address], [facility] * (ABNORMAL) Glucose by meter (03/05/2024 12:06 PM CDT) GLUCOSE BY METER POCT 107(H) 70 - 99 mg/dL 03/05/2024 12:13 PM CDT LABORATORY POC Blood, Capillary BLOOD SPECIMEN / Unknown 03/05/2024 12:06 PM CDT 03/05/2024 12:13 PM CDT Ron DEAN - BEAKER POCT LABORATORY [facility] [address] Lab (1st floor, no room number) [place] [address], [facility] * Glucose by meter (03/05/2024 7:58 AM CDT) GLUCOSE BY METER POCT 83 70 - 99 mg/dL 03/05/2024 8:04 AM CDT LABORATORY POC Blood, Capillary BLOOD SPECIMEN / Unknown 03/05/2024 7:58 AM CDT 03/05/2024 8:04 AM CDT Ron DEAN - BEAKER POCT LABORATORY [facility] Lab [address] Lab (1st floor, no room number) [place] [address], [facility] * (ABNORMAL) Hemoglobin (03/05/2024 7:35 AM CDT) Hemoglobin 7.1(L) 13.3 - 17.7 g/dL 03/05/2024 8:01 AM CDT LABORATORY Blood STRUCTURE OF LEFT HAND / Unknown Venipuncture / Unknown 03/05/2024 7:35 AM CDT 03/05/2024 7:57 AM CDT Aashish Romero DO LAB - BLOOD ORDER NADIA LABORATORY [facility] Lab [address] Lab (1st floor, no room number) [place] [phone] [place] [address] * (ABNORMAL) INR (03/05/2024 7:35 AM CDT) Pathologist [facility] INR 2.20(H) 0.85 - 1.15 03/05/2024 8:13 AM CDT LABORATORY Blood STRUCTURE OF LEFT HAND / Unknown Venipuncture / Unknown 03/05/2024 7:35 AM CDT 03/05/2024 7:57 AM CDT Eileen Earl MD LAB - BLOOD ORDERA BLES Performing Organization Address [facility]/ZIP Co de Phone Number [facility] [address] Lab (1st floor, no room number) [place] [phone] [place] [address] * (ABNORMAL) Comprehensive metabolic panel (03/05/2024 7:35 [...] - 15 mmol/L 03/05/2024 9:14 AM CDT RH LABORATORY Urea Nitrogen 81.7(H) 8.0 - 23.0 mg/dL 03/05/2024 9:14 AM CDT RH LABORATORY Creatinine 8.51(H) 0.67 - 1.17 mg/dL 03/05/2024 9:14 AM CDT RH LABORATORY GFR Estimate 7(L) >60 mL/min/1. 73m2 03/05/2024 9:14 AM CDT RH LABORATORY Calcium 7.8(L) 8.8 - 10.2 mg/dL 03/05/2024 9:14 AM CDT RH LABORATORY Chloride 79(L) 98 - 107 mmol/L 03/05/2024 9:14 AM CDT RH LABORATORY Glucose 88 70 [...] - 5.2 g/dL 03/05/2024 9:14 AM CDT RH LABORATORY Bilirubin Total 0.4 <=1.2 mg/dL 03/05/2024 9:14 AM CDT RH LABORATORY Blood STRUCTURE OF LEFT HAND / Unknown Venipuncture / Unknown 03/05/2024 7:35 AM CDT 03/05/2024 7:57 AM CDT Aashish Romero DO LAB - BLOOD ORDER NADIA RH LABORATORY [facility] Lab [address] Lab (1st floor, no room number) [place] [address] * (ABNORMAL) CBC with platelets (03/05/2024 7:35 [...] LAB - BLOOD ORDER NADIA RH LABORATORY [facility] [address] Lab (1st floor, no room number) [address] * (ABNORMAL) Glucose by meter (03/05/2024 4:09 AM CDT) GLUCOSE BY METER POCT 107(H) 70 - 99 mg/dL 03/05/2024 4:16 AM CDT RH LABORATORY POC Blood, Capillary BLOOD SPECIMEN / Unknown 03/05/2024 4:09 AM CDT 03/05/2024 4:16 AM CDT Narrative Authorizing Provider Result Lauren DEAN - BEAKER POCT LABORATORY [facility] [address] Lab (1st floor, no room number) [address] * (ABNORMAL) Glucose by meter (03/05/2024 3:22 AM CDT) GLUCOSE BY METER POCT 115(H) 70 - 99 mg/dL 03/05/2024 3:30 AM CDT LABORATORY POC Blood, Capillary BLOOD SPECIMEN / Unknown 03/05/2024 3:22 AM CDT 03/05/2024 3:30 AM CDT Narrative Authorizing Provider Result Lauren DEAN - DAVID POCT LABORATORY [facility] [address] Lab (1st floor, no room number) [address] * (ABNORMAL) Glucose by meter (03/05/2024 12:07 AM CDT) GLUCOSE BY METER POCT 118(H) 70 - 99 mg/dL 03/05/2024 12:14 AM CDT LABORATORY POC Blood, Capillary BLOOD SPECIMEN / Unknown 03/05/2024 12:07 AM CDT 03/05/2024 12:14 AM CDT Narrative Authorizing Provider Result Lauren DEAN - BEXIANG POCT Performing Organization Address City/[facility]/ZIP Co de Phone Number LABORATORY [facility] [address] Lab (1st floor, no room number) [address] [place] [address] * (ABNORMAL) Glucose by meter (03/04/2024 9:37 PM CDT) GLUCOSE BY METER POCT 132(H) 70 - 99 mg/dL 03/04/2024 9:45 PM CDT RH LABORATORY POC Blood, Capillary BLOOD SPECIMEN / Unknown 03/04/2024 9:37 PM CDT 03/04/2024 9:45 PM CDT Ron HERNANDEZ POCT Performing Organization Address [facility]/ZIP Co de Phone Number LABORATORY [facility] [address] Lab (1st floor, no room number) [address] [place] [address] * (ABNORMAL) Glucose by meter (03/04/2024 8:34 PM CDT) GLUCOSE BY METER POCT 122(H) 70 - 99 mg/dL 03/04/2024 8:41 PM CDT RH LABORATORY POC Blood, Capillary BLOOD SPECIMEN / Unknown 03/04/2024 8:34 PM CDT 03/04/2024 8:41 PM CDT Narrative Authorizing Provider Result Lauren HERNANDEZ POCT Performing Organization Address City/[facility]/ZIP Co de Phone Number LABORATORY [facility] [address] Lab (1st floor, no room number) [address] [place] [address] * (ABNORMAL) Potassium (03/04/2024 6:29 PM CDT) Potassium 5.6(H) 3.4 - 5.3 mmol/L 03/04/2024 7:00 PM CDT RH LABORATORY Blood STRUCTURE OF LEFT HAND / Unknown Venipuncture / Unknown 03/04/2024 6:29 PM CDT 03/04/2024 6:37 PM CDT Job Her MD LAB - BLOOD ORDERABL ES [facility] Lab [address] Lab (1st floor, no room number) [place] [address] * (ABNORMAL) Hemoglobin (03/04/2024 6:29 PM CDT) Hemoglobin 7.7(L) 13.3 - 17.7 g/dL 03/04/2024 6:41 PM CDT RH LABORATORY Blood STRUCTURE OF LEFT HAND / Unknown Venipuncture / Unknown 03/04/2024 6:29 PM CDT 03/04/2024 6:37 PM CDT Aashish Romero DO LAB - BLOOD ORDER NADIA Performing Organization Address City/[facility]/ZIP Co de Phone Number [facility] [address] Lab (1st floor, no room number) [place] [address], [facility] * Glucose by meter (03/04/2024 5:44 PM CDT) GLUCOSE BY METER POCT 93 70 - 99 mg/dL 03/04/2024 5:51 PM CDT LABORATORY POC Blood, Capillary BLOOD SPECIMEN / Unknown 03/04/2024 5:44 PM CDT 03/04/2024 5:51 PM CDT Ron Tripathi MD LAB - BEAKER POCT LABORATORY POC [facility] [address] Lab (1st floor, no room number) [place] [phone], [facility] * Glucose by meter (03/04/2024 3:12 PM CDT) GLUCOSE BY METER POCT 96 70 - 99 mg/dL 03/04/2024 3:19 PM CDT RH LABORATORY POC Blood, Capillary BLOOD SPECIMEN / Unknown 03/04/2024 3:12 PM CDT 03/04/2024 3:19 PM CDT Ron Tripathi MD LAB - BEAKER POCT LABORATORY [facility] [address] Lab (1st floor, no room number) [place] [address], [facility] * Glucose by meter (03/04/2024 1:46 PM CDT) GLUCOSE BY METER POCT 86 70 - 99 mg/dL 03/04/2024 1:53 PM CDT LABORATORY POC Blood, Capillary BLOOD SPECIMEN / Unknown 03/04/2024 1:46 PM CDT 03/04/2024 1:53 PM CDT Ron Tripathi MD LAB - BEAKER POCT Performing Organization Address [facility]/ZIP Co de Phone Number LABORATORY [facility] [address] Lab (1st floor, no room number) [place] [address], [facility] * (ABNORMAL) Glucose by meter (03/04/2024 1:09 PM CDT) GLUCOSE BY METER POCT 67(L) 70 - 99 mg/dL 03/04/2024 1:15 PM CDT LABORATORY POC Blood, Capillary BLOOD SPECIMEN / Unknown 03/04/2024 1:09 PM CDT 03/04/2024 1:15 PM CDT Ron Tripathi MD LAB - BEAKER POCT LABORATORY [facility] [address] Lab (1st floor, no room number) [place] [address], [facility] * (ABNORMAL) Glucose by meter (03/04/2024 11:59 AM CDT) GLUCOSE BY METER POCT 69(L) 70 - 99 mg/dL 03/04/2024 12:06 PM CDT LABORATORY POC Blood, Capillary BLOOD SPECIMEN / Unknown 03/04/2024 11:59 AM CDT 03/04/2024 12:06 PM CDT Ron DEAN - DAVID POCT LABORATORY [facility] Lab [address] Lab (1st floor, no room number) [place] [address], [place] * Glucose by meter (03/04/2024 10:47 AM CDT) GLUCOSE BY METER POCT 74 70 - 99 mg/dL 03/04/2024 11:06 AM CDT LABORATORY POC Blood, Capillary BLOOD SPECIMEN / Unknown 03/04/2024 10:47 AM CDT 03/04/2024 11:06 AM CDT Ron DEAN - DAVID POCT Performing Organization Address City/[facility]/ZIP Co de Phone Number LABORATORY [facility] Lab [address] Lab (1st floor, no room number) [place] [phone], [facility] * Glucose by meter (03/04/2024 8:58 AM CDT) GLUCOSE BY METER POCT 81 70 - 99 mg/dL 03/04/2024 9:06 AM CDT LABORATORY POC Blood, Capillary BLOOD SPECIMEN / Unknown 03/04/2024 8:58 AM CDT 03/04/2024 9:06 AM CDT Ron DEAN - DAVID POCT LABORATORY [facility] Lab [address] Lab (1st floor, no room number) [place] [phone], [facility] * Glucose by meter (03/04/2024 7:03 AM CDT) GLUCOSE BY METER POCT 76 70 - 99 mg/dL 03/04/2024 7:10 AM CDT LABORATORY POC Blood, Capillary BLOOD SPECIMEN / Unknown 03/04/2024 7:03 AM CDT 03/04/2024 7:10 AM CDT Ron Tripathi MD LAB - BEAKER POCT RH LABORATORY POC [facility] [address] Lab (1st floor, no room number) [place] [address] * (ABNORMAL) Comprehensive metabolic panel (03/04/2024 6:45 [...] - 107 mmol/L 03/04/2024 8:11 AM CDT LABORATORY Glucose 81 70 - 99 mg/dL [...] LAB - BLOOD ORDER NADIA RH LABORATORY [facility] [address] [facility] ([facility] floor, no room number) [place] [address], [facility] * (ABNORMAL) CBC with platelets (03/04/2024 6:45 AM CDT) WBC Count 6.7 4.0 - 11.0 10e3/uL [...] Romero DO LAB - BLOOD ORDER NADIA [facility] [address] Lab (1st floor, no room number) [place] [phone] [place] [address] * (ABNORMAL) Hemoglobin (03/04/2024 6:45 AM CDT) Hemoglobin 7.1(L) 13.3 - 17.7 g/dL 03/04/2024 6:57 AM CDT RH LABORATORY Blood STRUCTURE OF RIGHT UPPER LIMB / Unknown Venipuncture / Unknown 03/04/2024 6:45 AM CDT 03/04/2024 6:54 AM CDT Ron Tripathi MD LAB - BLOOD ORDERABL ES [facility] Lab [address] Lab (1st floor, no room number) [place] [address] * Cortisol (03/04/2024 6:45 AM CDT) [...] LAB - BLOOD ORDER NADIA U LABORATORY [facility] [address] [facility], [address] [place] [address] * Glucose by meter (03/04/2024 5:08 AM CDT) GLUCOSE BY METER POCT 93 70 - 99 mg/dL 03/04/2024 5:15 AM CDT LABORATORY POC Blood, Capillary BLOOD SPECIMEN / Unknown 03/04/2024 5:08 AM CDT 03/04/2024 5:15 AM CDT Ron HERNANDEZ POCT LABORATORY POC [facility] Lab [address] [facility] Lab (1st floor, no room number) [place] [address] * (ABNORMAL) Glucose by meter (03/04/2024 3:28 AM CDT) GLUCOSE BY METER POCT 116(H) 70 - 99 mg/dL 03/04/2024 3:36 AM CDT LABORATORY POC Blood, Capillary BLOOD SPECIMEN / Unknown 03/04/2024 3:28 AM CDT 03/04/2024 3:36 AM CDT Ron DEAN - DAVID POCT LABORATORY [facility] Lab [address] Lab (1st floor, no room number) [place] [phone] [place] [address] * Glucose by meter (03/04/2024 2:12 AM CDT) GLUCOSE BY METER POCT 77 70 - 99 mg/dL 03/04/2024 2:20 AM CDT RH LABORATORY POC Comment:Dr/RN Notified Blood, Capillary BLOOD SPECIMEN / Unknown 03/04/2024 2:12 AM CDT 03/04/2024 2:20 AM CDT Ron DEAN - BEXIANG POCT LABORATORY [facility] [address] Lab (1st floor, no room number) [place] [phone] [place] [address] * Glucose by meter (03/04/2024 12:25 AM CDT) GLUCOSE BY METER POCT 96 70 - 99 mg/dL 03/04/2024 12:32 AM CDT LABORATORY POC Blood, Capillary BLOOD SPECIMEN / Unknown 03/04/2024 12:25 AM CDT 03/04/2024 12:32 AM CDT Ron DEAN - DAVID POCT LABORATORY [facility] Lab [address] Lab (1st floor, no room number) [place] [phone] [place] [address] * (ABNORMAL) Hemoglobin (03/03/2024 9:40 PM CDT) Hemoglobin 7.2(L) 13.3 - 17.7 g/dL 03/03/2024 9:53 PM CDT RH LABORATORY Blood STRUCTURE OF RIGHT UPPER LIMB / Unknown Venipuncture / Unknown 03/03/2024 9:40 PM CDT 03/03/2024 9:50 PM CDT Narrative Authorizing Provider Result Lauren Tripathi MD LAB - BLOOD ORDERABL ES [facility] Lab [address] Lab (1st floor, no room number) [place] [phone] [place] [address] * (ABNORMAL) Glucose by meter (03/03/2024 8:13 PM CDT) GLUCOSE BY METER POCT 144(H) 70 - 99 mg/dL 03/03/2024 8:20 PM CDT RH LABORATORY POC Blood, Capillary BLOOD SPECIMEN / Unknown 03/03/2024 8:13 PM CDT 03/03/2024 8:20 PM CDT Narrative Authorizing Provider Result Lauren Tripathi MD LAB - BEAKER POCT Performing Organization Address [facility]/ZIP Co de Phone Number LABORATORY [facility] [address] Lab (1st floor, no room number) [place] [phone] [place] [address] * (ABNORMAL) Glucose by meter (03/03/2024 6:23 PM CDT) GLUCOSE BY METER POCT 110(H) 70 - 99 mg/dL 03/03/2024 6:29 PM CDT LABORATORY POC Blood, Capillary BLOOD SPECIMEN / Unknown 03/03/2024 6:23 PM CDT 03/03/2024 6:29 PM CDT Narrative Authorizing Provider Result Lauren DEAN - BEAKER POCT LABORATORY [facility] [address] Lab (1st floor, no room number) [place] [phone], [facility] * (ABNORMAL) Glucose by meter (03/03/2024 5:39 PM CDT) GLUCOSE BY METER POCT 57(L) 70 - 99 mg/dL 03/03/2024 5:45 PM CDT RH LABORATORY POC Blood, Capillary BLOOD SPECIMEN / Unknown 03/03/2024 5:39 PM CDT 03/03/2024 5:45 PM CDT Narrative Authorizing Provider Result Lauren Tripathi MD LAB - BEAKER POCT Performing Organization Address [facility]/ZIP Co de Phone Number LABORATORY [facility] [address] Lab (1st floor, no room number) [place] [phone] [place] [address] * (ABNORMAL) Glucose by meter (03/03/2024 5:11 PM CDT) GLUCOSE BY METER POCT 64(L) 70 - 99 mg/dL 03/03/2024 5:18 PM CDT LABORATORY POC Blood, Capillary BLOOD SPECIMEN / Unknown 03/03/2024 5:11 PM CDT 03/03/2024 5:18 PM CDT Narrative Authorizing Provider Result Lauren Tripathi MD LAB - BEAKER POCT Performing Organization Address [facility]/ZIP Co de Phone Number LABORATORY [facility] [address] Lab (1st floor, no room number) [place] [phone] [place] [address] * (ABNORMAL) Glucose by meter (03/03/2024 4:39 PM CDT) GLUCOSE BY METER POCT 55(L) 70 - 99 mg/dL 03/03/2024 4:46 PM CDT LABORATORY POC Blood, Capillary BLOOD SPECIMEN / Unknown 03/03/2024 4:39 PM CDT 03/03/2024 4:46 PM CDT Narrative Authorizing Provider Result Lauren Tripathi MD LAB - BEAKER POCT Performing Organization Address City/[facility]/ZIP Co de Phone Number LABORATORY [facility] [address] Lab (1st floor, no room number) [place] [phone] [place] [address] * (ABNORMAL) Glucose by meter (03/03/2024 4:17 PM CDT) GLUCOSE BY METER POCT 65(L) 70 - 99 mg/dL 03/03/2024 4:25 PM CDT RH LABORATORY POC Blood, Capillary BLOOD SPECIMEN / Unknown 03/03/2024 4:17 PM CDT 03/03/2024 4:25 PM CDT Narrative Authorizing Provider Result Lauren DEAN - BEAKER POCT Performing Organization Address [facility]/ZIP Co de Phone Number LABORATORY [facility] [address] Lab (1st floor, no room number) [place] [address], [facility] * (ABNORMAL) Glucose by meter (03/03/2024 2:11 PM CDT) GLUCOSE BY METER POCT 65(L) 70 - 99 mg/dL 03/03/2024 2:17 PM CDT LABORATORY POC Blood, Capillary BLOOD SPECIMEN / Unknown 03/03/2024 2:11 PM CDT 03/03/2024 2:17 PM CDT Narrative Authorizing Provider Result Lauren DEAN - BEAKER POCT Performing Organization Address [facility]/ZIP Co de Phone Number LABORATORY [facility] [address] Lab (1st floor, no room number) [place] [address], [facility] * (ABNORMAL) Hemoglobin (03/03/2024 2:07 PM CDT) Hemoglobin 7.6(L) 13.3 - 17.7 g/dL 03/03/2024 2:13 PM CDT LABORATORY Blood STRUCTURE OF RIGHT UPPER LIMB / Unknown Venipuncture / Unknown 03/03/2024 2:07 PM CDT 03/03/2024 2:10 PM CDT Narrative Authorizing Provider Result Lauren Tripathi MD LAB - BLOOD ORDERABL ES Performing Organization Address City/[facility]/ZIP Co de Phone Number [facility] [address] Lab (1st floor, no room number) [place] [phone], [facility] * (ABNORMAL) Glucose by meter (03/03/2024 11:59 AM CDT) GLUCOSE BY METER POCT 152(H) 70 - 99 mg/dL 03/03/2024 2:15 PM CDT RH LABORATORY POC Blood, Capillary BLOOD SPECIMEN / Unknown 03/03/2024 11:59 AM CDT 03/03/2024 2:15 PM CDT Ron Tripathi MD LAB - BEAKER POCT LABORATORY [facility] [address] Lab (1st floor, no room number) [place] [phone], [facility] * Glucose by meter (03/03/2024 11:36 AM CDT) GLUCOSE BY METER POCT 80 70 - 99 mg/dL 03/03/2024 2:14 PM CDT LABORATORY POC Blood, Capillary BLOOD SPECIMEN / Unknown 03/03/2024 11:36 AM CDT 03/03/2024 2:14 PM CDT Ron Tripathi MD LAB - BEAKER POCT Performing Organization Address [facility]/ZIP Co de Phone Number LABORATORY [facility] [address] Lab (1st floor, no room number) [place] [phone], [facility] * (ABNORMAL) Glucose by meter (03/03/2024 11:14 AM CDT) GLUCOSE BY METER POCT 39(LL) 70 - 99 mg/dL 03/03/2024 2:14 PM CDT LABORATORY POC Comment:Dr/RN Notified Blood, Capillary BLOOD SPECIMEN / Unknown 03/03/2024 11:14 AM CDT 03/03/2024 2:14 PM CDT Ron Tripathi MD LAB - BEAKER POCT LABORATORY [facility] [address] Lab (1st floor, no room number) [address] * Glucose by meter (03/03/2024 10:51 AM CDT) GLUCOSE BY METER POCT 79 70 - 99 mg/dL 03/03/2024 10:58 AM CDT LABORATORY POC Blood, Capillary BLOOD SPECIMEN / Unknown 03/03/2024 10:51 AM CDT 03/03/2024 10:58 AM CDT Narrative Authorizing Provider Result Lauren DEAN - BEAKER POCT LABORATORY [facility] [address] Lab (1st floor, no room number) [address] * (ABNORMAL) Glucose by meter (03/03/2024 10:30 AM CDT) GLUCOSE BY METER POCT 56(L) 70 - 99 mg/dL 03/03/2024 10:37 AM CDT LABORATORY POC Blood, Capillary BLOOD SPECIMEN / Unknown 03/03/2024 10:30 AM CDT 03/03/2024 10:37 AM CDT Narrative Authorizing Provider Result Lauren DEAN - EVERAKER POCT [facility] Lab [address] Lab (1st floor, no room number) [address] * (ABNORMAL) Hemoglobin (03/03/2024 6:10 AM CDT) Hemoglobin 7.1(L) 13.3 - 17.7 g/dL 03/03/2024 6:27 AM CDT LABORATORY Blood STRUCTURE OF RIGHT UPPER LIMB / Unknown Venipuncture / Unknown 03/03/2024 6:10 AM CDT 03/03/2024 6:25 AM CDT Narrative Authorizing Provider Result Lauren Tripathi MD LAB - BLOOD ORDERABL ES RH LABORATORY [facility] [address] Lab (1st floor, no room number) [place] [id number] * (ABNORMAL) INR (03/03/2024 6:10 AM CDT) INR 2.23(H) 0.85 - 1.15 03/03/2024 6:46 AM CDT RH LABORATORY Blood STRUCTURE OF RIGHT UPPER LIMB / Unknown Venipuncture / Unknown 03/03/2024 6:10 AM CDT 03/03/2024 6:25 AM CDT Ron Tripathi MD LAB - BLOOD ORDERABL ES LABORATORY [facility] [address] [facility] Lab (1st floor, no room number) [place] [id number] * (ABNORMAL) CBC with platelets (03/03/2024 6:10 AM CDT) Pathologist [facility] WBC Count 5.5 4.0 - 11.0 10e3/uL [...] - 450 10e3/uL 03/03/2024 6:27 AM CDT RH LABORATORY Blood STRUCTURE OF RIGHT UPPER LIMB / Unknown Venipuncture / Unknown 03/03/2024 6:10 AM CDT 03/03/2024 6:25 AM CDT Ron Tripathi MD LAB - BLOOD ORDERABL ES LABORATORY [facility] [address] Lab (1st floor, no room number) [place] [address] * (ABNORMAL) Basic metabolic panel (03/03/2024 6:10 [...] - 99 mg/dL 03/03/2024 6:46 AM CDT LABORATORY Blood STRUCTURE OF RIGHT UPPER LIMB / Unknown Venipuncture / Unknown 03/03/2024 6:10 AM CDT 03/03/2024 6:25 AM CDT Narrative Authorizing Provider Result Lauren Tripathi MD LAB - BLOOD ORDERABL ES [facility] Care Lab [address] Lab (1st floor, no room number) [place] [address] * (ABNORMAL) Glucose by meter (03/03/2024 5:27 AM CDT) GLUCOSE BY METER POCT 135(H) 70 - 99 mg/dL 03/03/2024 5:34 AM CDT LABORATORY POC Blood, Capillary BLOOD SPECIMEN / Unknown 03/03/2024 5:27 AM CDT 03/03/2024 5:34 AM CDT Narrative Authorizing Provider Result Lauren DEAN - BEAKER POCT Performing Organization Address [facility]/ZIP Co de Phone Number [facility] Lab [address] Lab (1st floor, no room number) [place] [address], [facility] * Glucose by meter (03/03/2024 4:16 AM CDT) GLUCOSE BY METER POCT 71 70 - 99 mg/dL 03/03/2024 4:23 AM CDT LABORATORY POC Blood, Capillary BLOOD SPECIMEN / Unknown 03/03/2024 4:16 AM CDT 03/03/2024 4:23 AM CDT Narrative Authorizing Provider Result Lauren DEAN - BEAKER POCT LABORATORY [facility] Lab [address] Lab (1st floor, no room number) [place] [address], [facility] * Glucose by meter (03/03/2024 2:40 AM CDT) GLUCOSE BY METER POCT 91 70 - 99 mg/dL 03/03/2024 2:46 AM CDT RH LABORATORY POC Blood, Capillary BLOOD SPECIMEN / Unknown 03/03/2024 2:40 AM CDT 03/03/2024 2:46 AM CDT Ron DEAN - BEXIANG POCT LABORATORY [facility] Lab [address] Lab (1st floor, no room number) [place] [id number] [place] [address] * CONDITIONAL Transfuse red blood cells (unit) 1; No special requirements (03/03/2024 1:50 AM CDT) Eileen Earl MD BLOOD TRANSFUSION ORDERABLES * Glucose by meter (03/03/2024 1:38 AM CDT) GLUCOSE BY METER POCT 82 70 - 99 mg/dL 03/03/2024 1:46 AM CDT RH LABORATORY POC Blood, Capillary BLOOD SPECIMEN / Unknown 03/03/2024 1:38 AM CDT 03/03/2024 1:46 AM CDT Ron DEAN - DAVID POCT Performing Organization Address [facility]/ZIP Co de Phone Number LABORATORY [facility] Lab [address] Lab (1st floor, no room number) [address] * Glucose by meter (03/03/2024 12:34 AM CDT) GLUCOSE BY METER POCT 74 70 - 99 mg/dL 03/03/2024 12:40 AM CDT LABORATORY POC Blood, Capillary BLOOD SPECIMEN / Unknown 03/03/2024 12:34 AM CDT 03/03/2024 12:40 AM CDT Ron DEAN - DAVID POCT LABORATORY [facility] Lab [address] Lab (1st floor, no room number) [place] [address] * Transfuse red blood cells (unit) (03/02/2024 10:54 PM CDT) Raúl Bernard MD BLOOD TRANSFUSION OR DERABLES * (ABNORMAL) Hemoglobin (03/02/2024 10:17 PM CDT) Hemoglobin 6.7(LL) 13.3 - 17.7 g/dL 03/02/2024 10:35 PM CDT RH LABORATORY Blood STRUCTURE OF RIGHT UPPER LIMB / Unknown Venipuncture / Unknown 03/02/2024 10:17 PM CDT 03/02/2024 10:26 PM CDT Ron Tripathi MD LAB - BLOOD ORDERABL ES [facility] Lab [address] Lab (1st floor, no room number) [place] [phone] [place] [address] * (ABNORMAL) Glucose by meter (03/02/2024 9:34 PM CDT) GLUCOSE BY METER POCT 126(H) 70 - 99 mg/dL 03/02/2024 10:03 PM CDT LABORATORY POC Blood, Capillary BLOOD SPECIMEN / Unknown 03/02/2024 9:34 PM CDT 03/02/2024 10:03 PM CDT Ron Tripathi MD LAB - BEAKER POCT [facility] Lab [address] Lab (1st floor, no room number) [place] [id number] * (ABNORMAL) Glucose by meter (03/02/2024 9:01 PM CDT) GLUCOSE BY METER POCT 136(H) 70 - 99 mg/dL 03/02/2024 9:11 PM CDT RH LABORATORY POC Blood, Capillary BLOOD SPECIMEN / Unknown 03/02/2024 9:01 PM CDT 03/02/2024 9:11 PM CDT Ron Tripathi MD LAB - BEAKER POCT Performing Organization Address [facility]/ZIP Co de Phone Number LABORATORY [facility] Lab [address] Lab (1st floor, no room number) [address] * (ABNORMAL) Glucose by meter (03/02/2024 8:26 PM CDT) GLUCOSE BY METER POCT 65(L) 70 - 99 mg/dL 03/02/2024 8:34 PM CDT RH LABORATORY POC Blood, Capillary BLOOD SPECIMEN / Unknown 03/02/2024 8:26 PM CDT 03/02/2024 8:34 PM CDT Narrative Authorizing Provider Result Lauren Tripathi MD LAB - BEAKER POCT Performing Organization Address [facility]/ZIP Co de Phone Number LABORATORY [facility] Lab [address] Lab (1st floor, no room number) [address] * (ABNORMAL) Glucose by meter (03/02/2024 8:01 PM CDT) GLUCOSE BY METER POCT 54(L) 70 - 99 mg/dL 03/02/2024 8:27 PM CDT LABORATORY POC Blood, Capillary BLOOD SPECIMEN / Unknown 03/02/2024 8:01 PM CDT 03/02/2024 8:27 PM CDT Ron Tripathi MD LAB - BEAKER POCT LABORATORY [facility] Lab [address] Lab (1st floor, no room number) [address] * (ABNORMAL) Glucose by meter (03/02/2024 7:45 PM CDT) GLUCOSE BY METER POCT 41(LL) 70 - 99 mg/dL 03/02/2024 7:55 PM CDT LABORATORY POC Blood, Capillary BLOOD SPECIMEN / Unknown 03/02/2024 7:45 PM CDT 03/02/2024 7:55 PM CDT Ron Tripathi MD LAB - BEAKER POCT LABORATORY [facility] Lab [address] Lab (1st floor, no room number) [place] [address] * (ABNORMAL) Ammonia (on ice) (03/02/2024 3:55 PM CDT) Ammonia <10(L) 16 - 60 umol/L 03/02/2024 4:21 PM CDT RH LABORATORY Blood STRUCTURE OF RIGHT UPPER LIMB / Unknown Venipuncture / Unknown 03/02/2024 3:55 PM CDT 03/02/2024 3:57 PM CDT Raúl Bernard MD LAB - BLOOD ORDERABL ES Performing Organization Address City/[facility]/ZIP Co de Phone Number [facility] Lab [address] Lab (1st floor, no room number) [place] [address] * Prepare red blood cells (unit) (03/02/2024 3:29 PM CDT) Pathologist [facility] Blood Component Type Red Blood Cells RH BLOOD BANK Product Code [id number] RH BLOO D BANK Unit Status Transfused RH BLOO D BANK Unit Number [id number] RH B LOOD BANK CROSSMATCH Compatible RH BLOOD BANK CODING SYSTEM [id number] RH BLO OD BANK ISSUE DATE AND TIME [id number] RH BLOOD BANK UNIT ABO/RH O+ RH BLOOD BANK UNIT TYPE ISBT 5100 RH BL OOD BANK 03/02/2024 3:29 PM CDT Raúl Bernard MD BLOOD BANK PRODUCT O RDERABLES Performing Organization Address City/[facility]/ZIP Co de Phone Number RH BLOOD BANK [address] [place] [address] * Prepare red blood cells (unit) (03/02/2024 3:29 PM CDT) Blood Component Type Red Blood Cells RH BLOOD BANK Product Code [id number] RH BLOO D BANK Unit Status Transfused RH BLOO D BANK Unit Number [id number] RH B LOOD BANK CROSSMATCH Compatible RH BLOOD BANK CODING SYSTEM [id number] RH BLO OD BANK ISSUE DATE AND TIME [id number] RH BLOOD BANK UNIT ABO/RH O+ RH BLOOD BANK UNIT TYPE ISBT 5100 RH BL OOD BANK 03/02/2024 3:29 PM CDT Raúl Bernard MD BLOOD BANK PRODUCT O RDERABLES RH BLOOD BANK [address] [place] [address] * EKG 12-lead, tracing only (03/02/2024 2:00 PM CDT) Systolic Blood Pressure mmHg RADIOLOGY RESULTS Diastolic Blood Pressure mmHg RADIOLOGY RESULTS Ventricular Rate 82 BPM RAD IOLOGY RESULTS Atrial Rate 82 BPM RADIOLOG Y RESULTS MI Interval 210 ms RADIOLOG Y RESULTS QRS Duration 88 ms RADIOLO GY RESULTS QT 382 ms RADIOLOGY RESULTS QTc 446 ms RADIOLOGY RESULTS P [place] 45 degrees RADIOLOGY RESULTS R AXIS -7 degrees RADIOLOGY RESULTS T [place] 24 degrees RADIOLOGY RESULTS Interpretation ECG Sinus rhythm with 1st degree A-V block Inferior infarct , age undetermined Abnormal ECG When compared with ECG of 24-FEB-2024 10:12, No significant change was found Unconfirmed report - interpretation of this ECG is computer generated - see medical record for final interpretation Confirmed by - EMERGENCY ROOM, PHYSICIAN ([id number]), video editor YISSEL VELASQUEZ ([id number]) on 03/02/2024 3:43:16 PM RADIOLOGY RESULTS 03/02/2024 [...] the Xpert Xpress CoV2/Flu/RSV Assay on the [employer] GeneXpert Instrument. This test should be ordered [...] management. This test was validated by the [facility]. These laboratories are certified under the Clinical Laboratory Improvement Amendments of 1988 (CLIA-88) as qualified to perform high complexity laboratory testing. Raúl Bernard MD LAB - MICRO GENERAL ORDERABLES [facility] Lab [address] [facility] Lab (1st floor, no room number) [place] [address], [facility] * Hemoglobin A1c (03/02/2024 1:56 PM CDT) Pathologist [facility] Hemoglobin A1C 5.5 <5.7 % 03/02/2024 7:31 PM CDT RH LABORATORY Comment: Normal <5.7% Prediabetes 5.7-6.4% ?? Diabetes 6.5% or higher Note: Adopted from ADA consensus guidelines. Blood BLOOD SPECIMEN / Unknown Venipuncture / Unknown 03/02/2024 1:56 PM CDT 03/02/2024 2:15 PM CDT Ron Tripathi MD LAB - BLOOD ORDERABL ES Performing Organization Address City/[facility]/ZIP Co de Phone Number RH LABORATORY [facility] [address] [facility] ([facility] floor, no room number) [place] [address] * Adult Type and Screen (03/02/2024 1:56 PM CDT) ABO/RH(D) O POS 03/02/2024 2:59 PM CDT RH BLOOD BANK Antibody Screen Negative Negative 03/02/2024 2:59 PM CDT RH BLOOD BANK SPECIMEN EXPIRATION DATE [id number] 03/02/2024 2:59 PM CDT RH BLOOD BANK Blood BLOOD SPECIMEN / Unknown Venipuncture / Unknown 03/02/2024 1:56 PM CDT 03/02/2024 2:15 PM CDT Raúl Bernard MD LAB - BLOOD BANK SHANNON T ORDER Performing Organization Address [facility] Co de Phone Number BLOOD BANK [address] [place] [address] * (ABNORMAL) CBC with platelets and [...] - BLOOD ORDERABL ES Performing Organization Address [facility]/ZIP Co de Phone Number [facility] Lab [address] Lab (1st floor, no room number) [place] [address] * (ABNORMAL) INR (03/02/2024 1:56 PM CDT) INR 2.09(H) 0.85 - 1.15 03/02/2024 3:14 PM CDT LABORATORY Blood BLOOD SPECIMEN / Unknown Venipuncture / Unknown 03/02/2024 1:56 PM CDT 03/02/2024 2:15 PM CDT Raúl Bernard MD LAB - BLOOD ORDERABL ES Performing Organization Address [facility] Co de Phone Number [facility] Lab [address] Lab (1st floor, no room number) [place] [phone] * (ABNORMAL) Comprehensive metabolic panel (03/02/2024 1:56 [...] Bernard MD LAB - BLOOD ORDERABL ES RH LABORATORY [facility] Acute Care Lab [address] Lab (1st floor, no room number) [place] [address] * Extra Heparinized Syringe (03/02/2024 1:56 PM CDT) Hold Specimen [facility] 03/02/2024 3:17 PM CDT RH LABORATORY Blood, venous BLOOD SPECIMEN / Unknown Venipuncture / Unknown 03/02/2024 1:56 PM CDT 03/02/2024 2:14 PM CDT Raúl Bernard MD LAB - BLOOD ORDERABL ES Performing Organization Address [facility]/ZIP Co de Phone Number [facility] Lab [address] Lab (1st floor, no room number) [place] [address] * Extra Blood Bank Purple Top Tube (03/02/2024 1:56 PM CDT) Hold Specimen [facility] 03/02/2024 3:17 PM CDT RH LABORATORY Blood BLOOD SPECIMEN / Unknown Venipuncture / Unknown 03/02/2024 1:56 PM CDT 03/02/2024 2:15 PM CDT Raúl Bernard MD LAB - BLOOD ORDERABL ES Performing Organization Address [facility]/ZIP Co de Phone Number [facility] Lab [address] Lab (1st floor, no room number) [place] [address] * Extra Blood Bank Purple Top Tube (03/02/2024 1:56 PM CDT) Hold Specimen [facility] 03/02/2024 3:17 PM CDT RH LABORATORY Blood BLOOD SPECIMEN / Unknown Venipuncture / Unknown 03/02/2024 1:56 PM CDT 03/02/2024 2:15 PM CDT Raúl Bernard MD LAB - BLOOD ORDERABL ES [facility] Lab [address] Lab (1st floor, no room number) [place] [address], [facility] * Extra Purple Top Tube (03/02/2024 1:56 PM CDT) Hold Specimen [facility] 03/02/2024 3:17 PM CDT RH LABORATORY Blood BLOOD SPECIMEN / Unknown Venipuncture / Unknown 03/02/2024 1:56 PM CDT 03/02/2024 2:15 PM CDT Raúl Bernard MD LAB - BLOOD ORDERABL ES Performing Organization Address City/[facility]/ZIP Co de Phone Number [facility] Care Lab [address] Lab (1st floor, no room number) [place] [address] * Extra Green Top ([place] Heparin) Tube (03/02/2024 1:56 PM CDT) Hold Specimen [facility] 03/02/2024 3:17 PM CDT RH LABORATORY Blood BLOOD SPECIMEN / Unknown Venipuncture / Unknown 03/02/2024 1:56 PM CDT 03/02/2024 2:15 PM CDT Raúl Bernard MD LAB - BLOOD ORDERABL ES Performing Organization Address [facility]/ZIP Co de Phone Number [facility] Care Lab [address] Lab (1st floor, no room number) [place] [address], [facility] * Extra Red Top Tube (03/02/2024 1:56 PM CDT) Hold Specimen [facility] 03/02/2024 3:17 PM CDT RH LABORATORY Blood BLOOD SPECIMEN / Unknown Venipuncture / Unknown 03/02/2024 1:56 PM CDT 03/02/2024 2:15 PM CDT Raúl Bernard MD LAB - BLOOD ORDERABL ES [facility] Lab [address] Lab (1st floor, no room number) [place] [address], [facility] * Extra Blue Top Tube (03/02/2024 1:56 PM CDT) Hold Specimen [facility] 03/02/2024 3:17 PM CDT LABORATORY Blood BLOOD SPECIMEN / Unknown Venipuncture / Unknown 03/02/2024 1:56 PM CDT 03/02/2024 2:15 PM CDT Raúl Bernard MD LAB - BLOOD ORDERABL ES [facility] Lab [address] Lab (1st floor, no room number) [place] [address], [facility] documented in this encounter Visit Diagnoses Diagnosis Hypoglycemia- Primary Hypoglycemia, unspecified Anemia, unspecified type Black stool Nonspecific abnormal finding in stool contents Gastrointestinal hemorrhage, unspecified gastrointestinal hemorrhage type Black stool Nonspecific abnormal finding in stool contents Anemia, unspecified type Anemia, unspecified type documented in this [...] 03/11/2024 5:36 PM CDT 667 mg dextrose 50 % injection 25-50 mL 25-50 [...] $Given 03/08/2024 11:15 AM CDT 25 mLs fentaNYL (PF) (SUBLIMAZE) injection Intravenous, PRN, Administer over 3-5 Minutes, Starting on Tue03/08/24 at 1310, Intra-procedure $Given 03/08/2024 1:10 PM CDT 50 mcg glucagon injection 1 mg 1 mg, Subcutaneous, [...] $Given 03/10/2024 4:52 PM CDT 1 Units metoprolol tartrate (LOPRESSOR) tablet 100 mg 100 mg, Oral, EVERY MORNING, First dose on 03/03/24 at 0900 $Given 03/12/2024 2:02 PM CDT 100 mg $Given 03/11/2024 8:45 AM CDT 100 mg $Given 03/10/2024 9:02 AM CDT 100 mg midazolam (VERSED) injection Intravenous, Administer over 2 Minutes, PRN, Starting on Padmaja 03/08/24 at 1309, Intra-procedure $Given 03/08/2024 1:09 PM CDT 0.5 mg multivitamin RENAL (TRIPHROCAPS) capsule Oral, EVERY [...] doses. ondansetron (ZOFRAN ODT) ODT tab 4 mg [...] $Given 03/11/2024 7:45 AM CDT 40 mg senna-docusate (SENOKOT-S/PERICOLACE) 8.6-50 MG [...] draw $Given 03/12/2024 11:57 AM CDT 20 mLs sodium chloride (PF) 0.9% PF flush [...] Starting on Tue03/06/24 at 1241 sodium chloride (PF) 0.9% PF flush Intracatheter, PRN, Starting on Tue03/08/24 at 1310, Intra-procedure $Given 03/08/2024 1:10 PM CDT 5 mLs sodium chloride 0.9 % infusion at 10 mL/hr, Intravenous, CONTINUOUS, IF patient on dialysis., Starting on Tue03/06/24 at 1300, Until Tue03/12/24 at 1836 $New Bag 03/06/2024 12:52 PM CDT 10 mL/hr warfarin ANTICOAGULANT (COUMADIN) tablet 7.5 mg 7.5 mg, Oral, ONCE AT 6PM, On Tue03/12/24 at 1800, For 1 dose Warfarin Dose Required Daily - Pharmacist Managed SEE ADMIN INSTRUCTIONS, Starting on 03/10/24 at 0714, Until Tue03/12/24 at 1836, *Note [...] Carter RN) 1402 ($Given - Provider: Fern Soliz, LINDA - Comment: DIALYSIS) atorvastatin (LIPITOR) tablet 20 [...] RN) 0815 ($Given - Provider: Fern Soliz, LINDA)1401 ($Given - Provider: Fern Soliz, LINDA - Comment: DIALYSIS)1800 (Canceled Entry - Provider: [...] Reason: Contraindicated)1206 (Not Given - Provider: Fern oSliz RN - Reason: Contraindicated)1800 (Canceled Entry - [...] at 2000 2106 ($Given - Provider: Sid Szymanski, LINDA) 2009 ($Given - Provider: Harriett Jacobsen RN) No heparin via hemodialysis machine (COMPLETED) ONCE, 1 dose, On 03/12/24 at 0830, Normal saline flushes may be [...] Carter RN) 0816 ($Given - Provider: Fern Soliz, LINDA)1630 (Canceled Entry - Provider: Orders Generic Provider [...] Carter RN)2352 (Not Given - Provider: Harriett Jacobsen, LINDA - Reason: IV Infusing) 0932 (Canceled Entry - Provider: Raul Carter RN)1609 ($Given - Provider: Raul Carter RN)2353 ($Given - Provider: Harriett Jacobsen, LINDA) 1408 (Not Given - Provider: Fern Soliz, LINDA - Reason: Other - Comment: discharging home)1600 [...] Dialysis 1155 ($New Bag - Provider: Melissa Drake RN) warfarin ANTICOAGULANT (COUMADIN) tablet 5 mg [...] 1 constipation PRN medication is ordered, administer step-jnae as indicated, moving to the next step [...] stools. documented in this encounter Care Teams Metalsmith Apprentice Relationship Specialty Start Date End Date Cornell Butt PCP - General 06/24/11 documented as of this encounter
--- OUTSIDE RECORDS SUMMARY | 2024-05-24 23:47 | XMS_ITS | Encounter Summary ---
Author Organization [facility] Address [address] [facility] [place] [address] Care Team Providers Care Carroter Name Role Phone Preet Huff Primary Care Provider [phone] Reason for Visit * Auth/Cert (Routine) Specialty Diagnoses / Procedures Referred By Contac t Referred To Contact Med Surg Diagnoses Black stool Anemia, unspecified type Anemia, unspecified type Black stool Rh [facility] [address] [place] [address] Referral ID Status Reason Start Date Expiration Date Visits Re quested Visits Authorized [id number] 1 1 Encounter Details Date Type Department Care Team (Late st Contact Info) Description 03/06/2024 2:08 PM CDT Anesthesia Event [facility] [address] [place] [address] Nohemy Skinner MD [facility] [place] [address] [place], [place] [id number] Anesthesia Record Procedure Summary Procedure Name Responsible Anesthesiologist Anesthesia Start Time Anesthesia Stop Time ESOPHAGOGASTRODUODENOSCOPY (Mouth) Nohemy Skinner MD 03/06/24 1408 03/06/24 1441 Events Date Time Event Comment 03/06/2024 1228 1230 WOMEN DESIGNER Ready for Procedure 1408 An Start 1410 An Start Data 1410 AN REASSESS I attest that I have identified and re-evaluated the patient immediately before the induction of anesthesia and I am satisfied that the anesthetic plan is suitable for the patient's condition and procedure. The first vital signs recorded are pre- induction. Raquel Antoine APRN WOMEN DESIGNER 1412 MD Present 1415 Anesthesia Ready for Procedu re 1427 an stop data 1441 An Stop Electronically signed by Raquel Antoine APRN CRNA on March 06, 2024 2:41 PM Meds Name Total lidocaine 2% 50 mg propofol drip mcg/kg/min 126.45 mg ondansetron (ZOFRAN) injection 4 mg 4 mg glycopyrrolate 0.2 mg/mL 0.2 mg LR 200 mL * Agents Name O2 N2O Air Exp Sevoflurane Exp Isoflurane Exp Desflurane Ins Sevoflurane Ins Isoflurane Ins Desflurane * Blood No blood administrations on file. Lines, Drains, and Airways Type Details Placement Removal Hemodialysis Vascular Access AV fistula; Left; Thigh 03/04/24 0939 by Negative Pressure Wound Therapy 12/16/17; 1217; Dr Saravia; Foot (heel); Left; 05/23/24; 1327 12/16/17 1217 by Macie Amin RN 05/23/24 1327 by Lilibeth Pena RN Wound 01/24/18; 0900; Left ; Yes; 05/23/24; 1327 01/24/18 0900 by Esme Espinoas RN 05/23/24 1327 by Lilibeth Pena RN Peripheral IV 03/04/24; 1225; 22 G , 1 3/4 inch; B Suarez; Anterior, Distal, Right; Lower forearm; Chlorhexidine, Skin Barrier; None; 1; 1; Tolerated well 03/04/24 1225 by Paulina Knag RN 03/07/24 1320 by Anusha Lindsey RN Peripheral IV 03/06/24; 1250; 20 G ; B Suarez; Right, Dorsal; Hand; Chlorhexidine; None; 1; Tolerated well 03/06/24 1250 by Heidy Cormier RN 03/07/24 0505 by Byron Camarillo, RN Incision/Surgical Site 03/06/24; 1433; Mouth; Scope Insertion Site; 05/23/24; 1327 03/06/24 1433 by Alfredo Mcghee RN 05/23/24 1327 by Lilibeth Pena RN documented in this encounter Social History [...] file Gender Identity Male 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 status CV/Hemodynamics: Uneventful Sign Out: Acceptable CV status; No obvious hypovolemia; No obvious fluid overload Other NRE: DID A NON-ROUTINE EVENT OCCUR? No Last vitals: Vitals Value Taken Time BP 149/67 03/06/24 1530 Temp 96.8 ??F (36 ??C) 03/06/24 1435 Pulse 69 03/06/24 1530 Resp SpO2 98 % 03/06/24 1545 Electronically Signed By: Nohemy Skinner MD March 06, 2024 4:25 PM * Anesthesia Postprocedure Evaluation - Nohemy Skinner MD - 03/06/2024 3:03 PM CDT Patient: Herminio Victor Procedure: Procedure(s): ESOPHAGOGASTRODUODENOSCOPY Anesthesia Type: MAC Note: Disposition: Inpatient Postop Pain Control: PONV: No Neuro/Psych: Uneventful Sign Out: Acceptable/Baseline neuro status Airway/Respiratory: Uneventful Sign Out: Acceptable/Baseline resp. status CV/Hemodynamics: Uneventful Sign Out: Acceptable CV status; No obvious hypovolemia; No obvious fluid overload Other NRE: DID A NON-ROUTINE EVENT OCCUR? No Last vitals: Vitals Value Taken Time BP 110/59 03/06/24 1500 Temp 96.8 ??F (36 ??C) 03/06/24 1435 Pulse 73 03/06/24 1500 Resp SpO2 89 % 03/06/24 1502 Vitals shown include unfiled device data. Electronically Signed By: Nohemy Skinner MD March 06, 2024 3:03 PM * Anesthesia Preprocedure Evaluation - Nohemy Skinner MD - 03/06/2024 11:37 AM CDT Anesthesia Pre-Procedure Evaluation Patient: Herminio Victor : 1965 Procedure : Procedure(s): ESOPHAGOGASTRODUODENOSCOPY COLONOSCOPY Past Medical History: Diagnosis Date A-V fistula (H24) left forearm Anemia Anemia Blind Chronic in-center hemodialysis status (H24) Cognitive deficits Diabetes mellitus (H) DVT (deep venous thrombosis) (H) ESRD (end stage renal disease) (H) dialysis T--[facility] History of staph septicemia 12/20/2015 Hyperkalemia [...] MD; Location: [facility] OR CREATE FISTULA ARTERIOVENOUS UPPER EXTREMITY 10/20/2011 [...] Surgeon: Rober Saravia MD; Location: [facility] OR Allergies Allergen Reactions Dihydroxyaluminum Aminoacetate Nausea GI bleeding Aspirin GI Disturbance and Rash PN: LW Reaction: unknown Social History Tobacco Use Smoking status: Never Smokeless tobacco: Never Substance Use Topics Alcohol use: No Wt Readings from Last 1 Encounters: 03/05/24 84.3 kg (185 lb 13.6 oz) Anesthesia Evaluation Pt has had prior anesthetic. Type: General. ROS/MED HX ENT/Pulmonary: (+) sleep apnea, Neurologic: Comment: Legally blind Cognitive impairment (+) CVA, Cardiovascular: (+) hypertension- - - - - valvular problems/murmurs type: Previous cardiac testing Echo: Date: 2018 Results: Final Impressions: 1. Normal LV size, mildly increased wall thickness, hyperdynamic global systolic function with an estimated EF of 70 - 75%. 2. Right ventricular cavity size is normal, global systolic RV function is normal. 3. Mildly enlarged left atrium. 4. The aortic valve is sclerotic and trileaflet, mild stenosis with mean gradient of 14 mmHg and mild regurgitation. 5. 2014 AHA/ACC guidelines for asymptomatic patients with mild aortic stenosis recommend followup echo in 3-5 years. Symptomatic patients should be referred for cardiology evaluation. Stress Test: Date: Results: ECG Reviewed: Date: Results: Cath: Date: Results: METS/Exercise Tolerance: Hematologic: (+) History of blood clots, pt is anticoagulated, anemia (acute on chronic, s/p 1u PRBCs today), Musculoskeletal: GI/Hepatic: Comment: Esophageal varices Renal/Genitourinary: Comment: Severe hyponatremia (+) renal disease, type: ESRD, Pt requires dialysis, type: Hemodialysis, Endo: (+) type II DM, Obesity, Psychiatric/Substance Use: Infectious Disease: Malignancy: Other: Physical Exam Airway Mallampati: IV TM distance: > 3 FB Neck ROM: limited Mouth opening: > 3 cm Respiratory Devices and Support Dental (+) Edentulous Cardiovascular Rhythm and rate: regular and normal (+) murmur Pulmonary pulmonary exam normal breath sounds clear to auscultation OUTSIDE LABS: CBC: Lab Results Component Value Date WBC 8.6 03/05/2024 WBC 6.7 03/04/2024 HGB 7.0 (L) 03/06/2024 HGB 8.4 (L) 03/05/2024 HCT 22.2 (L) 03/05/2024 HCT 22.1 (L) 03/04/2024 PLT 162 03/05/2024 PLT 152 03/04/2024 BMP: Lab Results Component Value Date NA 124 (L) 03/06/2024 NA 116 (LL) 03/05/2024 POTASSIUM 4.5 03/06/2024 POTASSIUM 6.0 (H) 03/05/2024 CHLORIDE 83 (L) 03/06/2024 CHLORIDE 79 (L) 03/05/2024 CO2 27 03/06/2024 CO2 19 (L) 03/05/2024 BUN 47.9 (H) 03/06/2024 BUN 81.7 (H) 03/05/2024 CR 5.98 (H) 03/06/2024 CR 8.51 (H) 03/05/2024 GLC 87 03/06/2024 GLC 89 03/06/2024 COAGS: Lab Results Component Value Date PTT 39 (H) 02/11/2022 INR 1.51 (H) 03/06/2024 POC: Lab Results Component Value Date BGM 72 01/25/2019 HEPATIC: Lab Results Component Value Date ALBUMIN 2.6 (L) 03/06/2024 PROTTOTAL 5.4 (L) 03/05/2024 ALT 15 03/05/2024 AST 22 03/05/2024 ALKPHOS 76 03/05/2024 BILITOTAL 0.4 03/05/2024 DARLINE <10 (L) 03/02/2024 OTHER: Lab Results Component Value Date LACT 0.7 02/24/2024 A1C 5.5 03/02/2024 JON 7.6 (L) 03/06/2024 PHOS 4.8 (H) 03/06/2024 MAG 2.1 06/17/2014 LIPASE 154 12/16/2015 Anesthesia Plan ASA Status: 3 NPO Status: NPO Appropriate Anesthesia Type: MAC. - Reason for MAC: straight local not clinically adequate Techniques and Equipment: - AVOID: No BP/IV in LLE Consents Anesthesia Plan(s) and associated risks, benefits, and realistic alternatives discussed. 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 - Discussed: - Discussed with: Patient - Extended Intubation/Ventilatory Support Discussed: No. - Patient is DNR/DNI Status: No Use of blood products discussed: No . Postoperative Care Pain management: IV analgesics. PONV prophylaxis: Ondansetron (or other 5HT-3) Comments: Nohemy Skinner MD I have reviewed the pertinent notes and labs in the chart from the past 30 days and (re)examined the patient. Any updates or changes from those notes are reflected in this note. documented in this encounter Miscellaneous Notes * Anesthesia Care Transfer Note - Raquel Antoine APRN WOMEN DESIGNER - 03/06/2024 2:41 PM CDT Patient: Herminio Victor Procedure: Procedure(s): ESOPHAGOGASTRODUODENOSCOPY Diagnosis: Anemia, unspecified type [D64.9] Gastrointestinal hemorrhage, unspecified gastrointestinal hemorrhage type [K92.2] Diagnosis Additional Information: No value filed. Anesthesia Type: MAC Note: Oropharynx: oropharynx clear of all foreign objects Level of Consciousness: drowsy Oxygen Supplementation: face mask Level of Supplemental Oxygen (L/min / FiO2): 6 Independent Airway: airway patency satisfactory and stable Dentition: dentition unchanged Vital Signs Stable: post-procedure vital signs reviewed and stable Report to RN Given: handoff report given Patient transferred to: PACU Handoff Report: Identifed the Patient, Identified the Reponsible Provider, Reviewed the pertinent medical history, Discussed the surgical course, Reviewed Intra-OP anesthesia mangement and issues during anesthesia, Set expectations for post-procedure period and Allowed opportunity for questions andacknowledgement of understanding Vitals: Vitals Value Taken Time BP 97/66 03/06/24 1435 Temp Pulse 68 03/06/24 1435 Resp SpO2 89 % 03/06/24 1439 Vitals shown include unfiled device data. Electronically Signed By: Raquel Antoine APRN CRNA March 06, 2024 2:41 PM documented in this encounter Plan of Treatment Not on file documented as of this encounter Visit Diagnoses Not on filedocumented in this encounter Administered Medications Inactive Administered Medications - up to 3 most recent administrations Medication Order MAR Action Action Date Dose Rate Site glycopyrrolate (ROBINUL) injection Intravenous, PRN, Administer over 1-2 Minutes, Starting on Tue03/06/24 at 1420, Anesthesia Intra-op $Given 03/06/2024 2:20 PM CDT 0.2 mg lactated ringers infusion Intravenous, CONTINUOUS PRN, Anesthesia Intra-op, Starting on Tue03/06/24 at 1408, Until Tue03/06/24 at 1441 $New Bag 03/06/2024 2:08 PM CDT lidocaine 2% injection (MDV) Intravenous, PRN, Starting on Tue03/06/24 at 1415, Anesthesia Intra-op $Given 03/06/2024 2:15 PM CDT 50 mg ondansetron (ZOFRAN) injection 4 mg 4 mg, Intravenous, ONCE PRN, nausea, vomiting, Administer over 2-5 Minutes, Starting on Tue03/06/24 at 1242, For 1 dose, Give in ENDO pre procedure prep area. Irritant., Pre-procedure $Given 03/06/2024 2:15 PM CDT 4 mg propofol (DIPRIVAN) infusion Intravenous, CONTINUOUS PRN, Starting on Tue03/06/24 at 1415, Anesthesia Intra-op $New Bag 03/06/2024 2:15 PM CDT 150 mcg/kg/min 75.87 mL/hr documented in this encounter Care Teams Carroter Relationship Specialty Start Date End Date Preet Huff PCP - General 06/24/11 documented as of this encounter
--- OUTSIDE RECORDS SUMMARY | 2024-05-24 23:48 | XMS_ITS | Encounter Summary ---
Author Organization [facility] Address [address] [place] [id number] Care Team Providers Care Enterostomal Therapy Nurse Name Role Phone Cornell Butt Primary Care Provider [phone] Reason for Visit * Reason Comments Generalized Weakness * Auth/Cert (Routine) Specialty Diagnoses / Procedures Referred By Contac t Referred To Contact Med Surg Diagnoses Black stool Anemia, unspecified type Anemia, unspecified type Black stool Rh 5 Medical Surgical [address] [place] [address] Referral ID Status Reason Start Date Expiration Date Visits Re quested Visits Authorized [id number] 1 1 Encounter Details Date Type Department Care Team (Late st Contact Info) Description 03/06/2024 1:00 PM CDT - 03/06/2024 2:10 PM CDT Surgery [facility] PeriOp Services [address] [place] [address] Eileen Earl MD [facility] [address] [place] [id number] ESOPHAGOGASTRODUODENOSCOPY Surgery Details Date/Time Status Location OR Service Patient Class Case Class Case Type Trauma Case? 03/06/24 1:00 PM Posted RH OR OR 06 Gastroenterology Inpatient NEST 5 - Semi-Urg ent (within 48hrs) Panel 1 Procedure LRB Anes Op Region Wound Class Comments ESOPHAGOGASTRODUODENOSCOPY N/A MAC Mouth II- Clean Contaminated Surgeon Surgeon Role Service Panel Eileen [...] file Gender Identity Male 12/05/2017 10:39 AM TRANSVERSE ABDOMINAL MUSCLE NURSE Sexual Orientation Not on file documented as of this encounter Last Filed Vital Signs Vital Sign Reading Time Taken Comments Blood Pressure 142/68 03/06/2024 12:23 PM CDT Pulse 68 03/06/2024 12:23 PM CDT Temperature 36.1 ??C (97 ??F) 03/06/2024 12: 23 PM CDT Respiratory Rate 18 03/06/2024 12:2 3 PM CDT Oxygen Saturation 94% 03/06/2024 12: 23 PM CDT Inhaled Oxygen Concentration - - Weight 84.3 kg (185 lb 13.6 oz) 03/05/2024 5:30 PM CDT Height - - Body Mass Index 31.9 02/24/2024 1:53 PM CDT documented in this encounter Discharge Summaries * Nicolasa Luke DO - 03/12/2024 9:23 AM CDT Images from the original note were not included. [facility] Hospital Hospitalist Discharge Summary Date of Admission: 03/02/2024 [...] the patient was re cently hospitalized at [facility] from 02/23 to 02/25 for the [...] minutes discharging this patient. Nicolasa Luke DO [facility] 5 MEDICAL SURGICAL [address] [facility] [address] Physical Exam Vital Signs: Temp: 98.4 ??F [...] US UPPER EXTREMITY VENOUS DUPLEX RIGHT LOCATION: [facility] DATE: 03/07/2024 INDICATION: Swelling, looking [...] EXAM: XR CHEST PORT 1 VIEW LOCATION: [facility] DATE: 03/11/2024 INDICATION: Shortness of [...] Refills: 3 Associated Diagnoses: Mixed hyperlipidemia B Vlrgtpc-O-Nzqyl Acid (WESCAPS PO) Take 1 capsule by [...] sent through Care Everywhere. * Colon Polyps (Wolof) documented in this encounter Medications at Time of Discharge Medication Sig Dispensed Refills Start Date End Date B Eiarjfj-V-Usgio Acid (WESCAPS PO) Take 1 capsule by [...] Date: 03/12/2024 Discharge Disposition: Home Discharge Services: LANDSCAPING MANAGER Discharge DME: None Discharge Transportation: agency, other (see comments) ([place] [facility]) Private pay costs discussed: transportation costs Education Provided on the Discharge Plan: yes Persons Notified of Discharge Plans: [employer]unsalvador Renee Patient/Family in Agreement with the Plan: yes Handoff Referral Completed: No Additional Information: Medically ready for discharge home today with mother and Aunt. Contacted [employer] Rene[employer] to confirm that transportation needed to be set up. She stated they use [facility] [facility] for his dialysis appointments. Called [facility] [facility] [facility] and they are unable to provide transportation on short notice and they would not have openings today. Discussed with patients Aunt and she is agreeable to having set up [facility] transport and is aware of the potential cost if insurance does not cover. Contacted [facility] and transport set up for [phone]. Aunt will be at home to accept and she confirms a ramp in the rear of the home. Lynne Cárdenas RN BSN [facility] [employer] Engineering Technologist [facility] [phone] * Lynne Cárdenas RN - 03/12/2024 1:41 PM CDT Care Management Discharge Note Discharge Date: 03/12/2024 Discharge Disposition: Home Discharge Services: LANDSCAPING MANAGER Discharge DME: None Discharge Transportation: agency, other (see comments) ([place] [facility]) Private pay costs discussed: Not applicable Does [...] reach her or aunt who is patients LANDSCAPING MANAGER. Left voice mail. Lynne Cárdenas OUTSIDE MACHINIST [employer] Technologist [facility] [phone] * Melissa Dewey RN - 03/12/2024 12:36 [...] checked every 4 hours. Outpatient Dialysis at [facility]. Patient repositioned every 2 hours during the treatment. Pre and Post HD report given to Fern Soliz RN regarding 3 L of fluid removed, last BP of 153/72, and patient pain rating of 0/10. Note to Nurse: Please remove patient dressing on AVF and AVG needle sites 24 hours after dialysis. If leaking occurs please apply a Band-Aid. Beauty PhouminhValdez, RN * Wojciech Holman MD - 03/12/2024 [...] Interval History: Dialysis run parameters reviewed with warp clamper at patient bedside. Seen on run Resting [...] this interval not displayed. Wojciech Holman MD [facility] - Nephrology [phone] * Jose Enrique Naylor MD - 03/11/2024 10:24 AM CDT Chart reviewed. Labs and vitals reviewed. Sodium better at 126. Potassium okay. No indication for dialysis today. Noted an episode of vomiting and TECHNICAL INSPECTOR. Chest x-ray appears clear without pulmonary [...] interval not displayed. Jose Enrique Naylor MD [facility] - Nephrology [phone] * Nicolasa Luke DO - 03/11/2024 9:13 AM CDT [facility] Medicine Progress Note - Hospitalist Service Date [...] the patient was re cently hospitalized at [facility] from 02/23 to 02/25 for the [...] 1 unit with hgb this AM 7.8 -TECHNICAL INSPECTOR overnight had episode of emesis, CPAP [...] of 03/03. Appeared to be asymptomatic - TECHNICAL INSPECTOR called for EGD 03/06 because of [...] with Mother and Aunt (who is his LANDSCAPING MANAGER) Hx of CVA Legally Blind Hypertension Hyperlipidemia [...] with help/services Nicolasa Luke DO Hospitalist Service [facility] Securely message with Echo360 (more info) Text page via [facility] Paging/Directory Physical Exam Vital Signs: Temp: 98.7 [...] Jacobsen RN - 03/11/2024 3:23 AM CDT TECHNICAL INSPECTOR called. Patient had received 1 unit of blood earlier in the evening. Had cpap put on for the night. field staff and film writer came into the room and cpap mask was off and patient was on his left side and had vomited. Emesis was yellow in color with some food chunks. Vomit was not evident in the cpap mask. Respiratory was paged and came to see the patient at the bedside. Cross cover was also paged. TECHNICAL INSPECTOR was then called incase patient had aspirated on vomit. Cpap was not placed back on patient after emesis episode. * Portia Domingo RT - 03/11/2024 3:10 AM CDT Attended TECHNICAL INSPECTOR that was called due to pt [...] - 03/11/2024 3:07 AM CDT Responded to TECHNICAL INSPECTOR called for an episode of emesis. [...] Romero DO - 03/10/2024 10:27 AM CDT [facility] Hospitalist Progress Note Name: Herminio Victor Provider: [...] note, the patient was recently hospitalized at [facility] from 02/23 to 02/25 for the [...] for recheck this evening. Updated mother Arianna Flynn/LANDSCAPING MANAGER Thelma via phone. All questions answered. Problem [...] of 03/03. Appeared to be asymptomatic - TECHNICAL INSPECTOR called for EGD 03/06 because of [...] with Mother and Aunt (who is his LANDSCAPING MANAGER) Hx of CVA Legally Blind Hypertension Hyperlipidemia [...] 24 hour(s)). Aashish Romero DO [facility] Hospitalist [address] [place] [address] Securely message with Echo360 (more info) Text page via [facility] Paging/Directory 03/10/2024 * Portia Domingo RT - [...] given low sodium Jose Enrique Naylor MD [facility] - Nephrology [phone] Interval History : Seen / examined on [...] AST -- -- -- -- -- 25 < > = [...] including patient evaluation, reviewing documentation/test results, and grey stock recorder. Discussed with Dr. Earl. Will no longer follow. Please call with questions or change in condition. Ebony Cheek PA-C [facility] ( [facility]) * Cintia Valadez RN - 03/09/2024 10:10 [...] to treatment See Adult Hemodialysis flowsheet in [employer] for further details and post assessment. Machine [...] Cheek MD - 03/09/2024 8:28 AM CDT [facility] Medicine Progress Note - Hospitalist Service [...] the patient was re cently hospitalized at [facility] from 02/23 to 02/25 for the [...] of 03/03. Appeared to be asymptomatic - TECHNICAL INSPECTOR called for EGD 03/06 because of [...] with Mother and Aunt (who is his LANDSCAPING MANAGER) Hx of CVA Legally Blind Hypertension Hyperlipidemia [...] 2-4 Days Antonino Cheek MD Hospitalist Service [facility] Securely message with Echo360 (more info) Text page via [facility] Paging/Directory Interval History Denies any symptoms today. [...] visit (from the past 24 hour(s)). * Douglsa Zarate RT - 03/09/2024 5:37 AM CDT [...] interval not displayed. Jose Enrique Naylor MD [facility] - Nephrology [phone] * Antonino Cheek MD - 03/08/2024 8:22 AM CDT [facility] Medicine Progress Note - Hospitalist Service [...] the patient was re cently hospitalized at [facility] from 02/23 to 02/25 for the [...] of 03/03. Appeared to be asymptomatic - TECHNICAL INSPECTOR called for EGD 03/06 because of [...] with Mother and Aunt (who is his LANDSCAPING MANAGER) Hx of CVA Legally Blind Hypertension Hyperlipidemia [...] 2-4 Days Antonino Cheek MD Hospitalist Service [facility] Securely message with [employer]360 (more info) Text page via [facility] Paging/Directory Interval History Patient denies chest pain [...] Pulse: 81 Resp: 18 SpO2: 91 % J3Lurowy: Nasal cannula Oxygen Delivery: 2 LPM Weight: [...] US UPPER EXTREMITY VENOUS DUPLEX RIGHT LOCATION: [facility] DATE: 03/07/2024 INDICATION: Swelling, looking [...] checked every 4 hours. [facility] Patient repositioned every 2 hours during the treatment. Pre & Post treatment report called to Anusha Lindsey RN Please note: Please remove patient dressing on AVF and AVG needle sites 24 hours after dialysis. Ifleaking occurs please apply a Band-Aid. Melissa Newton RN * Antonino Cheek MD - 03/07/2024 4:12 PM CDT [facility] Medicine Progress Note - Hospitalist Service Date [...] the patient was re cently hospitalized at [facility] from 02/23 to 02/25 for the [...] today. Nephrology is following. ESRD on HD (MW) - Appreciate Nephrology management of HD Type 2 Diabetes Mellitus with Hypoglycemia - A1C = 5.5 on 03/02/2024 - Hypoglycemia noted the morning of 03/03. Appeared to be asymptomatic - TECHNICAL INSPECTOR called for EGD 03/06 because of [...] with Mother and Aunt (who is his LANDSCAPING MANAGER) Hx of CVA Legally Blind Hypertension Hyperlipidemia [...] 2-4 Days Antonino Cheek MD Hospitalist Service [facility] Securely message with Echo360 (more info) Text page via [facility] Paging/Directory Interval History Patient denies symptoms, sleeping [...] given low sodium Jose Enrique Naylor MD [facility] - Nephrology [phone] Interval History : Seen / examined. No [...] and thrill Labs: All labs reviewed by ca Electrolytes/Renal - Recent Labs Lab Test 03/07/24 [...] including patient evaluation, reviewing documentation/test results, and grey stock recorder. Discussed with Dr. Janette Cheek PA-C [facility] ( [facility]) * Byron Camarillo RN - 03/07/2024 5:51 [...] diet. Patient is due for dialysis tomorrow. [facility] unable to complete colonoscopy today due to lack of preparation. I will discuss with them the convenience to wait 1 more day before colonoscopy. * Megan Salazar - 03/06/2024 4:20 PM CDT [facility] Progress Note MS 5 Responded to patient's room regarding overhead Adult Rapid Response CODE. Patient receiving cares. No family present. SHS not needed. SHS remains available. Rev. Ladan HameedDiv. Staff Wooden Barrel Mechanic * Janine Irvin RN - 03/06/2024 3:35 [...] use as able. Jose Enrique Naylor MD [facility] - Nephrology [phone] * Antonino Cheek MD - 03/06/2024 7:30 AM CDT [facility] Medicine Progress Note - Hospitalist Service Date [...] the patient was re cently hospitalized at [facility] from 02/23 to 02/25 for the [...] with Mother and Aunt (who is his LANDSCAPING MANAGER) Hx of CVA Legally Blind Hypertension Hyperlipidemia [...] 2-4 Days Antonino Cheek MD Hospitalist Service [facility] Securely message with Echo360 (more info) Text page via [facility] Paging/Directory Interval History Patient denies symptoms but [...] Pulse: 89 Resp: 18 SpO2: 98 % G8Tpwqlm: BiPAP/CPAP Weight: 185 lbs 13.56 oz GEN: [...] 24 hour(s)). * Graham Enciso RT - 03/06/2024 12:52 AM CDT A [...] Paged to Dr. Cheek. Paul Rasmussen MD [facility] * Jose Enrique Naylor MD [...] given low sodium Jose Enrique Naylor MD [facility] - Nephrology [phone] Interval History : Seen / examined. Appears [...] and thrill Labs: All labs reviewed by ca Electrolytes/Renal - Recent Labs Lab Test 03/05/24 [...] Cheek MD - 03/05/2024 8:33 AM CDT [facility] Medicine Progress Note - Hospitalist Service [...] the patient was re cently hospitalized at [facility] from 02/23 to 02/25 for the [...] with Mother and Aunt (who is his LANDSCAPING MANAGER) Hx of CVA Legally Blind Hypertension Hyperlipidemia [...] 2-4 Days Antonino Cheek MD Hospitalist Service [facility] Securely message with Echo360 (more info) Text page via [facility] Paging/Directory Interval History Patient is not significantly [...] Recheck INR tomorrow AM. Paul Rasmussen MD [facility] - [facility] [phone] SUBJECTIVE: Denies pain or new symptoms OBJECTIVE: [...] Romero DO - 03/04/2024 10:01 AM CDT [facility] Hospitalist Progress Note Name: Herminio Victor Provider: [...] note, the patient was recently hospitalized at [facility] from 02/23 to 02/25 for the [...] improves with food today. Updated Aunt and LANDSCAPING MANAGER Thelma via phone. All questions answered. Problem [...] with Mother and Aunt (who is his LANDSCAPING MANAGER) Hx of CVA Legally Blind Hypertension Hyperlipidemia [...] Admin dextrose 10% infusion Intravenous Continuous Aashish Romero, 40 mL/hr at 03/04/24 09 Rate Verify at 03/04/24 0901 Current Facility-Administered [...] 24 hour(s)). Aashish Romero DO [facility] Hospitalist [address] [facility] [place] [address] Securely message with Echo360 (more info) Text page via [facility] Paging/Directory 03/04/2024 * Douglas Zarate RT - [...] Romero DO - 03/03/2024 12:46 PM CDT [facility] Hospitalist Progress Note Name: Herminio Victor Provider: [...] note, the patient was recently hospitalized at [facility] from 02/23 to 02/25 for the [...] with Mother and Aunt (who is his LANDSCAPING MANAGER) Hx of CVA Legally Blind Hypertension Hyperlipidemia [...] 24 hour(s)). Aashish Romero DO [facility] [place] [address] Securely message with Echo360 (Ici Montreuil info) Text page via [facility] Paging/Directory 03/03/2024 * Bella Argueta RN - 03/03/2024 10:46 AM CDT DATE/TIME OF CALL RECEIVED FROM LAB: 03/03/24 at 10:47 AM LAB TEST: blood glucose LAB VALUE: 56 PROVIDER NOTIFIED?: Yes PROVIDER NAME: Dr. Delfin Romero DATE/TIME LAB VALUE REPORTED TO PROVIDER: 1030 MECHANISM OF PROVIDER NOTIFICATION: [id number]-Ubqe PROVIDER RESPONSE: Administer IV Dextrose and recheck blood glucose in 15 minutes ++++++++++++++++++++++++++++++++++++ DATE/TIME OF CALL RECEIVED FROM LAB: 03/03/24 at 11:15 am LAB TEST: Blood glucose LAB VALUE: 39 PROVIDER NOTIFIED?: Yes PROVIDER NAME: Delfin Romero DATE/TIME LAB VALUE REPORTED TO PROVIDER: 03/03/24 at 11:18 am MECHANISM OF PROVIDER NOTIFICATION: [id number]-Vfky PROVIDER RESPONSE: Additional IV dose of Dextrose [...] Tripathi MD - 03/02/2024 4:41 PM CDT [facility] History and Physical - Hospitalist Service [...] has memory issues and onto his primary LANDSCAPING MANAGER. Per aunt, patient always had cognitive deficits [...] 2-4 Days Ron Tripathi MD Hospitalist Service [facility] Securely message with Echo360 (more info) Text page via [facility] Paging/Directory Chief Complaint Melanotic stools. History is [...] (end stage renal disease) (H) dialysis T--Sat History of staph septicemia 12/20/2015 Hyperkalemia Hyperlipemia [...] Dose Informant Patient Reported? Taking? BISACODYL PO Family Intervention Specialist Yes No Sig: Take 10 mg by [...] 24 hours: Patient, ER physician and patient'shu Renee Data I have personally reviewed the following [...] PM CDTAssociated Order(s): Single Lumen Midline Placement [facility] Single Lumen Midline Placement Date/Time: 03/07/2024 1:34 [...] the procedure a time out was called Castell Protocol: [facility] Castell Protocol was followed Preparation: Patient was prepped [...] size: 4 Fr Brand: Bard Lot number: [id number] Placement method: venipuncture, MST and ultrasound Number [...] Lopez RDN, LD Clinical Dietitian 3rd floor/ICU: [phone] All other floors: [phone] Weekend/holiday: [phone] Office: [phone] * Job Her MD - 03/04/2024 12:38 [...] file Other Topics Concern Parent/sibling w/ CABG, [place] or angioplasty before 65F 55M? Not Asked Social History Narrative Not on file Social Determinants of Health Financial Resource Strain: Low Risk (06/23/2022) Received from [facility] [employer] [facility] Financial Resource Strain Difficulty of Paying Living Expenses: 3 Difficulty of Paying Living Expenses: Not on file Food Insecurity: No Food Insecurity (06/23/2022) Received from [facility] Food Insecurity Worried About Running Out of Food in the Last Year: 1 Transportation Needs: No Transportation Needs (06/23/2022) Received from [facility] Transportation Needs Lack of Transportation (Medical): 1 Physical Activity: Not on file Stress: Not on file Social Connections: Unknown (06/24/2023) Received from [facility] Social Connections Frequency of Communication with Friends and Family: Not on file Interpersonal Safety: Not on file Housing Stability: Low Risk (06/23/2022) Received from [facility] Housing Stability Unable to Pay [...] MD [facility] - Nephrology Office Pager: [phone] * Paul Rasmussen MD - 03/03/2024 3:58 PM CDTAssociated Order(s): GASTROENTEROLOGY IP CONSULT Images from the original note were not included. GASTROENTEROLOGY CONSULTATION Herminio Victor [address] [place] [id number] 58 year old male Admission Date/Time: 03/02/2024 [...] restart based on course. Paul Rasmussen MD [facility] - [facility] [phone] HPI: Herminio Victor is a 58 year [...] evening 12/19/17 Yes Estrella Guillen MD B Shjjbwc-U-Sbrek Acid (WESCAPS PO) Take 1 capsule by [...] 3.5 BILITOTAL 0.2 -- 0.5 0.6 ALT - 16 AST - 17 LIPASE -- -- [...] Communication Assessment Patient's communication style: spoken language (Wolof or Bilingual) Hearing Difficulty or Deaf: no [...] Support: Care provided by: other (see comments) (LANDSCAPING MANAGER- aunt Thelma) Provides care for: no one, [...] Insecurity: No Food Insecurity (06/23/2022) [facility] Food Insecurity Worried About Running Out of Food in the Last Year: 1 Depression: Not at risk (05/22/2020) Received from [employer] [facility] PHQ-2 PHQ-2 Score: 0 Housing Stability: Low Risk (06/23/2022) Received from [employer] [facility] Housing Stability Unable to Pay for Housing in the Last Year: 1 Tobacco Use: Low Risk (02/25/2024) Patient History Smoking Tobacco Use: Never Smokeless Tobacco Use: Never Passive Exposure: Not on file Financial Resource Strain: Low Risk (06/23/2022) Received from [employer] [facility] Financial Resource Strain Difficulty of Paying Living Expenses: 3 Difficulty of Paying Living Expenses: Not on file Alcohol Use: Not on file Transportation Needs: No Transportation Needs (06/23/2022) Received from [employer] [facility] Transportation Needs Lack of Transportation (Medical): 1 Physical Activity: Not on file Interpersonal Safety: Not on file Stress: Not on file Social Connections: Unknown (06/24/2023) Received from [facility] Social Connections Frequency of Communication with Friends [...] mother and aunt. His aunt is his LANDSCAPING MANAGER and has 40 hours per week.He receives assistance with all ADL's and IADL's except eating. He is legally blind so he needs assistance with ambulating, positioning and transfers too. He ambulates without any assistive devices.He receives Dialysis on MWF at [facility] in [place] per his aunt report.His transportation company [employer] in [place]. Their Phone number is [phone] and they are open M-F , 7 AM to 5 pm. CM will monitor for any discharge needs. Laura Bird RN, BSN, CM Inpatient Care Coordination [facility] [phone] documented in this encounter ED Notes * Albina Sneed RN - 03/02/2024 5:43 PM CDT [facility] ED Nurse Handoff Report ED Chief complaint: Generalized Weakness . ED Diagnosis: Final diagnoses: Anemia, unspecified type Black stool Allergies: Allergies Allergen Reactions Dihydroxyaluminum Aminoacetate Nausea GI bleeding Aspirin GI Disturbance and Rash PN: LW Reaction: unknown Code Status: Full Code Activity level - Baseline/Home: lift. Activity Level - Current: bed Lift room needed: No. Bariatric: No Machine Pack Assembler Needed: No Isolation: No. Infection: Not Applicable. [...] POS Antibody Screen Negative SPECIMEN EXPIRATION DATE [id number] PREPARE RED BLOOD CELLS (UNIT) Blood Component Type Red Blood Cells Product Code Q1853H42 Unit Status Transfused Unit Number [id number] CROSSMATCH Compatible CODING SYSTEM [id number] ISSUE DATE AND TIME [id number] UNIT ABO/RH O+ UNIT TYPE ISBT 5100 PREPARE RED BLOOD CELLS (UNIT) Blood Component Type Red Blood Cells Product Code G6803P91 Unit Status Ready for issue Unit Number [id number] CROSSMATCH Compatible CODING SYSTEM [id number] PREPARE RED BLOOD CELLS (UNIT) TRANSFUSE RED [...] time: 1:38 PM Means of arrival: Comments: [facility] * Raúl Bernard MD - 03/02/2024 [...] POS Antibody Screen Negative SPECIMEN EXPIRATION DATE [id number] PREPARE RED BLOOD CELLS (UNIT) Blood Component Type Red Blood Cells Product Code R0223P12 Unit Status Ready for issue Unit Number [id number] CROSSMATCH Compatible CODING SYSTEM [id number] PREPARE RED BLOOD CELLS (UNIT) Blood Component Type Red Blood Cells Product Code [id number] Unit Status Ready for issue Unit Number [id number] CROSSMATCH Compatible CODING SYSTEM [id number] PREPARE RED BLOOD CELLS (UNIT) ABO/RH TYPE AND SCREEN EKG ECG taken at 1400, ECG read at 1403 Sinus rhythm with 1st degree AV block Inferior infarct, age undetermined No significant change when compared to prior, dated 02/24/24. Rate 82 bpm. TN interval 210 ms. QRS duration 88 ms. QT/QTc 382/446 ms. P-R-T axes 45 -7 24. ED Course Medications Administered Medications - No data to display Discussion of Management Admitting Hospitalist, Dr. Tripathi Social Determinants of Health adding to complexity of care None ED Course ED Course as of 03/02/24 165TueMarch 02, 2024 1407 I obtained history and examined the patient as noted above. 1624 I rechecked the patient and explained findings. I obtained consent for blood transfusion. 1630 I spoke with hospitalist, Dr. Tripathi regarding admission. Medical Decision Making / Diagnosis [facility] Diagnoses: None MIPS None MDM Herminio Victor [...] Prescriptions No medications on file Scribe Disclosure: I, Db Jackson, am serving as a scribe at 2:11 PM on 03/02/2024 to document services personally performed by Raúl Bernard MD based on my observations and the provider's statements to me. Scribe Disclosure: I, LAVINIA ENRIQUEZ, am serving as a scribe circus trainer at 2:09 PM on 03/02/2024 to [...] pt. * Pharmacy-Anticoagulation Service - Ryann Armando, [facility] - 03/12/2024 2:15 PM CDT Images from the original note were not included. 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 INR Goal= 2-3. Warfarin SANDBLASTER PAINT SPRAYER Regimen: 5mg M-F Anticoagulation Dose History More [...] 6:47 AM CDT Assumed care Assumed care [id number]. A&Ox3, disoriented to time and can be [...] Documentation Taken 03/11/2024 1950 by Harriett Jacobsen fur blender Review/Management: medications reviewed Problem: Adult Inpatient Plan [...] shift note. Outcome: Progressing Flowsheets (Taken 03/11/2024 0727) Outcome Evaluation: Bp controlled w/ scheduled meds. [...] Flowsheet Documentation Taken 03/11/2024835 by Raul Carter fur blender Review/Management: medications reviewed Goal: Blood Pressure in Desired Range Outcome: Progressing Intervention: Maintain Blood Pressure Management Recent Flowsheet Documentation Taken 03/11/2024835 by Raul Carter RN Medication Review/Management: medications reviewed * Plan of Care - Harriett Jacobsen RN - 03/11/2024 5:48 AM CDT Assumed care [id number]. A&Ox4, but can be confused intermittently. On RA and cpap at night. On a renal diet and needs help ordering/tray set-up. Has midline to L arm that is saline locked. Got 1 unit of blood. BG checks: 148, 120, 94. TECHNICAL INSPECTOR called overnight, see progress notes from film writer, , and respiratory. Denies pain. Plan [...] Flowsheet Documentation Taken 03/10/20242319 by Harriett Jacobsen fur blender Review/Management: medications reviewed Problem: Adult Inpatient Plan [...] Jacobsen RN - 03/11/2024 2:41 AM CDT Notification Notified Person: Main diaz MD Notified Person Name: Andie Zhang Notification Date/Time: 03/11/2024 0241 Mechanism of Provider Notification: Echo360 messaging Purpose of Notification: FYI- Patient got [...] * Pharmacy-Anticoagulation Service - Nivia Mahan [facility] - 03/10/2024 12:35 PM CDT Clinical Pharmacy - Warfarin Dosing Consult Pharmacy has been consulted to manage this patient???s warfarin therapy. Indication: DVT/ PE Treatment Therapy Goal: INR 2-3 Warfarin Prior to Admission: Yes Warfarin SANDBLASTER PAINT SPRAYER Regimen: 5mg M-F Dose Comments: 5mg today [...] shift note. Outcome: Progressing Flowsheets (Taken 03/09/2024 4757) Outcome Evaluation: Hgb 7.6 with recheck Goal: [...] your shift note. Outcome: Progressing Flowsheets (Taken 03/08/20242304) Outcome Evaluation: [...] Recent Flowsheet Documentation Taken 03/08/20241823 by Diego Osei, RN Infection Prevention: single patient room provided rest/sleep promoted environmental surveillance performed Goal: Optimal Comfort and Wellbeing Outcome: Progressing Intervention: Monitor Pain and Promote Comfort Recent Flowsheet Documentation Taken 03/08/20241823 by Diego Osei nuclear power reactor operator Interventions: declines Goal: Readiness for Transition of [...] shift note. Outcome: Progressing Flowsheets (Taken 03/08/2024 7211) Outcome Evaluation: 1 unit of blood given. [...] Recent Flowsheet Documentation Taken 03/08/2024 08 by Maeve Shipley RN Pain Management Interventions: [...] ESRD (end stage renal disease) (H) dialysis [facility] History of staph septicemia 12/20/2015 Hyperkalemia [...] 30 tablet 3 03/01/2024 at PM B Jhctpdp-W-Sqbym Acid (WESCAPS PO) Take 1 capsule by [...] Documentation Taken 03/07/2024929 by Anusha Lindsey, RN VTE Prevention/Management: SCDs (sequential compression devices) off Goal: Optimal Comfort and Wellbeing Outcome: Progressing Goal: Readiness for Transition of Care Outcome: Progressing * Plan of Care - Byron Camarillo RN - 03/07/2024 7:51 AM CDT For vital signs and complete assessments, please see documentation flowsheets. [id number] Pertinent assessments:Pt disoriented to time & situation [...] of 36 at upon arrival from PACU, TECHNICAL INSPECTOR called. PRN D50% 50ml given via [...] Recent Flowsheet Documentation Taken 03/06/2024 1005 by Edei Pack RN Hypoglycemia Management: blood glucose monitored [...] and complete assessments, please see documentation flowsheets. [id number] Pertinent assessments:Pt disoriented to time. CPAP in [...] Progressing * Plan of Care - Capo Roew RN - 03/05/2024 11:06 PM CDT Goal [...] and complete assessments, please see documentation flowsheets. [id number] Pertinent assessments: Pt disoriented to time. CPAP [...] shift note. Outcome: Progressing Flowsheets (Taken 03/04/2024 2255) Outcome Evaluation: BG stable Plan of Care [...] carb diet Treatment Plan: clears tomorrow and SAP SENIOR DEVELOPER at midnight for colonoscopy and EGD, monitor [...] Recent Flowsheet Documentation Taken 03/04/2024399 by Zulema Parr RN Safety Promotion/Fall Prevention: supervised activity safety round/check completed room organization consistent room near nurse's station patient and family education nonskid shoes/slippers when out of bed mobility aid in reach lighting adjusted increased rounding and observation clutter free environment maintained increase visualization of patient Intervention: Prevent Skin Injury Recent Flowsheet Documentation Taken 03/04/2024399 by Zulema Parr RN Body Position: position changed independently Goal: [...] Recent Flowsheet Documentation Taken 03/04/2024399 by Zulema Parr RN Hypoglycemia Management: (IV dextrose continued) blood [...] - 03/03/2024 3:08 PM CDT Cared for [id number] Pt Alert to self (cognitive delay; visually [...] the update. Information Source(s): Patient's Aunt, Thelma, Dottie/GumaroScrialex via phone Pertinent Information: None Changes made to SANDBLASTER PAINT SPRAYER medication list: Added: Senna Deleted: Bisacodyl, Lisinopril (Thelma states she was told to stop giving this last week) Changed: None Allergies reviewed with patient and updates made in EHR: no Medication History Completed By: Quang Gee RPH 03/02/2024 5:32 PM SANDBLASTER PAINT SPRAYER Med List Medication Sig Last Dose amLODIPine (NORVASC) 5 MG tablet Take 5 mg by mouth daily 03/02/2024 at AM atorvastatin (LIPITOR) 20 MG tablet Take 1 tablet (20 mg) by mouth every evening 03/01/2024 at PM B Lbahcma-U-Ayqof Acid (WESCAPS PO) Take 1 capsule by [...] CDT COLONOSCOPY Routine 03/08/2024 1:04 PM CDT GLUCOSE BY METER Routine 03/08/2024 11:3 5 [...] 03/12/2024 12:10 PM CDT Ron DEAN - [facility] POCT LABORATORY [facility] Lab [address] [facility] Lab (1st floor, no room number) [place] [address], [facility] * Glucose by meter (03/12/2024 7:51 AM CDT) GLUCOSE BY METER POCT 92 70 - 99 mg/dL 03/12/2024 7:58 AM CDT LABORATORY POC Blood, Capillary BLOOD SPECIMEN / Unknown 03/12/2024 7:51 AM CDT 03/12/2024 7:58 AM CDT Ron Tripathi MD LAB - BEAKER POCT Performing Organization Address City/[facility]/ZIP Co de Phone Number LABORATORY POC [facility] Acute Care Lab [address] Lab (1st floor, no room number) [address] * Glucose (03/12/2024 6:06 AM CDT) Glucose 77 70 - 99 mg/dL 03/12/2024 6:35 AM CDT RH LABORATORY Blood STRUCTURE OF RIGHT UPPER LIMB / Unknown Venipuncture / Unknown 03/12/2024 6:06 AM CDT 03/12/2024 6:10 AM CDT Ron Tripathi MD LAB - BLOOD ORDERABL ES Performing Organization Address [facility]/ZIP Co de Phone Number [facility] Acute Care Lab [address] Lab (1st floor, no room number) [address] [place] [address] * (ABNORMAL) Hemoglobin (03/12/2024 6:06 AM CDT) Hemoglobin 8.1(L) 13.3 - 17.7 g/dL 03/12/2024 6:14 AM CDT LABORATORY Blood STRUCTURE OF RIGHT UPPER LIMB / Unknown Venipuncture / Unknown 03/12/2024 6:06 AM CDT 03/12/2024 6:10 AM CDT Aashish Romero DO LAB - BLOOD ORDER NADIA Performing Organization Address City/[facility]/ZIP Co de Phone Number [facility] Care Lab [address] Lab (1st floor, no room number) [address] [place] [address] * (ABNORMAL) Renal panel (03/12/2024 6:06 AM [...] MD LAB - BLOOD ORDERA BLES LABORATORY [facility] [address] [facility] ([facility] floor, no room number) [place] [address], [facility] * (ABNORMAL) INR (03/12/2024 6:06 AM CDT) INR 1.20(H) 0.85 - 1.15 03/12/2024 6:25 AM CDT LABORATORY Blood STRUCTURE OF RIGHT UPPER LIMB / Unknown Venipuncture / Unknown 03/12/2024 6:06 AM CDT 03/12/2024 6:10 AM CDT Eileen Earl MD LAB - BLOOD KIMA EMMA [facility] Care Lab [address] Lab (1st floor, no room number) [place] [address], [facility] * (ABNORMAL) Glucose by meter (03/12/2024 1:55 AM CDT) GLUCOSE BY METER POCT 107(H) 70 - 99 mg/dL 03/12/2024 2:01 AM CDT LABORATORY POC Blood, Capillary BLOOD SPECIMEN / Unknown 03/12/2024 1:55 AM CDT 03/12/2024 2:01 AM CDT Ron DEAN - DAVID POCT Performing Organization Address City/[facility]/ZIP Co de Phone Number LABORATORY [facility] Lab [address] Lab (1st floor, no room number) [place] [address], [facility] * (ABNORMAL) Glucose by meter (03/11/2024 9:11 PM CDT) GLUCOSE BY METER POCT 132(H) 70 - 99 mg/dL 03/11/2024 9:18 PM CDT LABORATORY POC Blood, Capillary BLOOD SPECIMEN / Unknown 03/11/2024 9:11 PM CDT 03/11/2024 9:18 PM CDT Ron Mohamud BEXIANG POCT LABORATORY [facility] Care Lab [address] Lab (1st floor, no room number) [place] [address], [facility] * (ABNORMAL) Hemoglobin (03/11/2024 6:10 PM CDT) Hemoglobin 8.8(L) 13.3 - 17.7 g/dL 03/11/2024 6:22 PM CDT RH LABORATORY Blood STRUCTURE OF RIGHT UPPER LIMB / Unknown Venipuncture / Unknown 03/11/2024 6:10 PM CDT 03/11/2024 6:20 PM CDT Aashish Romero DO LAB - BLOOD ORDER NADIA [facility] Lab [address] Lab (1st floor, no room number) [place] [phone], [facility] * (ABNORMAL) Glucose by meter (03/11/2024 5:31 PM CDT) GLUCOSE BY METER POCT 144(H) 70 - 99 mg/dL 03/11/2024 5:39 PM CDT RH LABORATORY POC Blood, Capillary BLOOD SPECIMEN / Unknown 03/11/2024 5:31 PM CDT 03/11/2024 5:39 PM CDT Ron DEAN - DAVID POCT Performing Organization Address City/[facility]/ZIP Co de Phone Number LABORATORY [facility] Lab [address] Lab (1st floor, no room number) [place] [id number] * (ABNORMAL) Glucose by meter (03/11/2024 11:47 AM CDT) GLUCOSE BY METER POCT 117(H) 70 - 99 mg/dL 03/11/2024 11:54 AM CDT RH LABORATORY POC Blood, Capillary BLOOD SPECIMEN / Unknown 03/11/2024 11:47 AM CDT 03/11/2024 11:54 AM CDT Ron DEAN - BEXIANG POCT LABORATORY [facility] Lab [address] Lab (1st floor, no room number) [place] [address] * Glucose by meter (03/11/2024 7:36 AM CDT) GLUCOSE BY METER POCT 81 70 - 99 mg/dL 03/11/2024 7:45 AM CDT RH LABORATORY POC Blood, Capillary BLOOD SPECIMEN / Unknown 03/11/2024 7:36 AM CDT 03/11/2024 7:45 AM CDT Ron Tripathi MD LAB - BEAKER POCT RH LABORATORY POC [facility] Acute Care Lab [address] Lab (1st floor, no room number) [place] [id number] * (ABNORMAL) Renal panel (03/11/2024 7:03 [...] - 107 mmol/L 03/11/2024 7:33 AM CDT RH LABORATORY Carbon Dioxide (CO2) [...] Earl MD LAB - BLOOD ORDERA BLES [facility] Lab [address] Lab (1st floor, no room number) [place] [phone] [place] [address] * INR (03/11/2024 7:03 AM CDT) INR 1.11 0.85 - 1.15 03/11/2024 7:31 AM CDT RH LABORATORY Blood STRUCTURE OF RIGHT UPPER LIMB / Unknown Venipuncture / Unknown 03/11/2024 7:03 AM CDT 03/11/2024 7:10 AM CDT Eileen Earl MD LAB - BLOOD ORDERA BLES [facility] Lab [address] Lab (1st floor, no room number) [place] [phone] [place] [address] * (ABNORMAL) CBC with platelets (03/11/2024 7:03 [...] DO LAB - BLOOD ORDER NADIA LABORATORY [facility] Care Lab [address] Lab (1st floor, no room number) [place] [address] * XR Chest Port 1 View (03/11/2024 3:25 AM CDT) Anatomical Region Laterality Modality Chest Digital Radiogra phy 03/11/2024 3:25 AM CDT Impressions 03/11/2024 3:30 AM CDT IMPRESSION: Normal heart size and pulmonary vascularity. Lungs clear. No pneumothorax. Minimal fluid or thickening along the right fissure. Narrative 03/11/2024 3:30 AM CDT EXAM: XR CHEST PORT 1 VIEW LOCATION: [facility] DATE: 03/11/2024 INDICATION: Shortness of breath COMPARISON: None. Procedure Note David Díaz MD - 03/11/2024 EXAM: XR CHEST PORT 1 VIEW LOCATION: [facility] DATE: 03/11/2024 INDICATION: Shortness of breath COMPARISON: None. IMPRESSION: Normal heart size and pulmonary vascularity. Lungs clear. Nopneumothorax. Minimal fluid or thickening along the right fissure. Addis Zhang MD, IMG DIAGNOSTIC TAYLOR GING ORDERABLES * Glucose by meter (03/11/2024 3:03 AM CDT) GLUCOSE BY METER POCT 94 70 - 99 mg/dL 03/11/2024 3:10 AM CDT LABORATORY POC Blood, Capillary BLOOD SPECIMEN / Unknown 03/11/2024 3:03 AM CDT 03/11/2024 3:10 AM CDT Ron HERNANDEZ POCT Performing Organization Address City/[facility]/ZIP Co de Phone Number LABORATORY [facility] Lab [address] Lab (1st floor, no room number) [place] [phone] * (ABNORMAL) Glucose by meter (03/11/2024 1:57 AM CDT) GLUCOSE BY METER POCT 120(H) 70 - 99 mg/dL 03/11/2024 2:04 AM CDT LABORATORY POC Blood, Capillary BLOOD SPECIMEN / Unknown 03/11/2024 1:57 AM CDT 03/11/2024 2:04 AM CDT Ron HERNANDEZ POCT LABORATORY [facility] Lab [address] Lab (1st floor, no room number) [place] [address] * CONDITIONAL Transfuse red blood cells [...] LAB - BEAKER POCT RH LABORATORY POC [facility] Care Lab [address] [facility] Lab (1st floor, no room number) [place] [address] * Adult Type and Screen (03/10/2024 6:53 PM CDT) ABO/RH(D) O POS 03/10/2024 6:44 PM CDT RH BLOOD BANK Antibody Screen Negative Negative 03/10/2024 6:44 PM CDT RH BLOOD BANK SPECIMEN EXPIRATION DATE [id number] 03/10/2024 6:44 PM CDT RH BLOOD BANK Blood STRUCTURE OF RIGHT UPPER LIMB / Unknown Venipuncture / Unknown 03/10/2024 6:53 PM CDT 03/10/2024 6:57 PM CDT Antonino Cheek MD LAB - BLOOD BANK SHANNON T ORDER Performing Organization Address City/[facility]/ZIP Co de Phone Number RH BLOOD BANK [address] [place] [address] * CONDITIONAL Prepare red blood cells (unit) (03/10/2024 6:37 PM CDT) Blood Component Type Red Blood Cells RH BLOOD BANK Product Code [id number] RH BLOO D BANK Unit Status Transfused RH BLOO D BANK Unit Number [id number] RH B LOOD BANK CROSSMATCH Compatible RH BLOOD BANK CODING SYSTEM [id number] RH BLO OD BANK ISSUE DATE AND TIME [id number] RH BLOOD BANK UNIT ABO/RH O+ RH BLOOD BANK UNIT TYPE ISBT 5100 RH BL OOD BANK 03/10/2024 6:37 PM CDT Eileen Earl MD BLOOD BANK PRODUCT ORDERABLES Performing Organization Address [facility]/ZIP Co de Phone Number BLOOD BANK [address] [place] [address], [facility] * (ABNORMAL) Hemoglobin (03/10/2024 6:00 PM CDT) Hemoglobin 7.0(L) 13.3 - 17.7 g/dL 03/10/2024 6:09 PM CDT RH LABORATORY Blood STRUCTURE OF RIGHT UPPER LIMB / Unknown Venipuncture / Unknown 03/10/2024 6:00 PM CDT 03/10/2024 6:07 PM CDT Aashish Romero DO LAB - BLOOD ORDER NADIA Performing Organization Address [facility]/ZIP Co de Phone Number [facility] Lab [address] [facility] Lab (1st floor, no room number) [place] [address] * (ABNORMAL) Glucose by meter (03/10/2024 4:49 PM CDT) GLUCOSE BY METER POCT 208(H) 70 - 99 mg/dL 03/10/2024 5:05 PM CDT LABORATORY POC Blood, Capillary BLOOD SPECIMEN / Unknown 03/10/2024 4:49 PM CDT 03/10/2024 5:05 PM CDT Ron Tripathi MD LAB - BEAKER POCT Performing Organization Address [facility]/ZIP Co de Phone Number LABORATORY [facility] Lab [address] Lab (1st floor, no room number) [place] [address], [facility] * Glucose by meter (03/10/2024 2:35 PM CDT) GLUCOSE BY METER POCT 98 70 - 99 mg/dL 03/10/2024 2:43 PM CDT LABORATORY POC Blood, Capillary BLOOD SPECIMEN / Unknown 03/10/2024 2:35 PM CDT 03/10/2024 2:43 PM CDT Ron Tripathi MD LAB - BEAKER POCT LABORATORY [facility] Lab [address] Lab (1st floor, no room number) [place] [address], [place] * Glucose by meter (03/10/2024 1:28 PM CDT) GLUCOSE BY METER POCT 94 70 - 99 mg/dL 03/10/2024 1:37 PM CDT RH LABORATORY POC Blood, Capillary BLOOD SPECIMEN / Unknown 03/10/2024 1:28 PM CDT 03/10/2024 1:37 PM CDT Ron Tripathi MD LAB - DAVID POCT Performing Organization Address City/[facility]/ZIP Co de Phone Number LABORATORY [facility] Lab [address] Lab (1st floor, no room number) [place] [address] * Glucose by meter (03/10/2024 12:35 PM CDT) GLUCOSE BY METER POCT 92 70 - 99 mg/dL 03/10/2024 12:50 PM CDT RH LABORATORY POC Blood, Capillary BLOOD SPECIMEN / Unknown 03/10/2024 12:35 PM CDT 03/10/2024 12:50 PM CDT Ron DEAN - DAVID POCT LABORATORY [facility] Lab [address] Lab (1st floor, no room number) [place] [address] * (ABNORMAL) Glucose by meter (03/10/2024 11:28 AM CDT) GLUCOSE BY METER POCT 102(H) 70 - 99 mg/dL 03/10/2024 11:35 AM CDT RH LABORATORY POC Blood, Capillary BLOOD SPECIMEN / Unknown 03/10/2024 11:28 AM CDT 03/10/2024 11:35 AM CDT Ron Tripathi MD LAB - BEAKER POCT LABORATORY [facility] Lab [address] Lab (1st floor, no room number) [address] * (ABNORMAL) Glucose by meter (03/10/2024 10:35 AM CDT) GLUCOSE BY METER POCT 133(H) 70 - 99 mg/dL 03/10/2024 10:42 AM CDT RH LABORATORY POC Blood, Capillary BLOOD SPECIMEN / Unknown 03/10/2024 10:35 AM CDT 03/10/2024 10:42 AM CDT Ron Tripathi MD LAB - BEAKER POCT Performing Organization Address [facility]/ZIP Co de Phone Number LABORATORY [facility] Lab [address] Lab (1st floor, no room number) [address] * (ABNORMAL) Glucose by meter (03/10/2024 8:32 AM CDT) GLUCOSE BY METER POCT 105(H) 70 - 99 mg/dL 03/10/2024 8:45 AM CDT RH LABORATORY POC Blood, Capillary BLOOD SPECIMEN / Unknown 03/10/2024 8:32 AM CDT 03/10/2024 8:45 AM CDT Ron Tripathi MD LAB - BEAKER POCT LABORATORY [facility] Lab [address] Lab (1st floor, no room number) [address] * (ABNORMAL) Hemoglobin (03/10/2024 7:46 AM CDT) Hemoglobin 7.0(L) 13.3 - 17.7 g/dL 03/10/2024 7:55 AM CDT RH LABORATORY Blood STRUCTURE OF RIGHT UPPER LIMB / Unknown Venipuncture / Unknown 03/10/2024 7:46 AM CDT 03/10/2024 7:50 AM CDT Ron Tripathi MD LAB - BLOOD ORDERABL ES LABORATORY [facility] Lab [address] Lab (1st floor, no room number) [place] [address] * (ABNORMAL) Renal panel (03/10/2024 7:46 AM [...] MD LAB - BLOOD ORDERA BLERobin LABORATORY [facility] Lab [address] Lab (1st floor, no room number) [place] [address], [facility] * (ABNORMAL) INR (03/10/2024 7:46 AM CDT) INR 1.18(H) 0.85 - 1.15 03/10/2024 8:03 AM CDT RH LABORATORY Blood STRUCTURE OF RIGHT UPPER LIMB / Unknown Venipuncture / Unknown 03/10/2024 7:46 AM CDT 03/10/2024 7:50 AM CDT Eileen Earl MD LAB - BLOOD KIMA BLERobin Performing Organization Address [facility]/ZIP Co de Phone Number LABORATORY [facility] Lab [address] Lab (1st floor, no room number) [place] [address], [facility] * (ABNORMAL) Glucose by meter (03/10/2024 3:38 AM CDT) GLUCOSE BY METER POCT 112(H) 70 - 99 mg/dL 03/10/2024 3:44 AM CDT LABORATORY POC Blood, Capillary BLOOD SPECIMEN / Unknown 03/10/2024 3:38 AM CDT 03/10/2024 3:44 AM CDT Ron Tripathi MD LAB - BEAKER POCT Performing Organization Address City/[facility]/ZIP Co de Phone Number LABORATORY POC [facility] Lab [address] Lab (1st floor, no room number) [place] [address] * Glucose by meter (03/10/2024 12:05 AM CDT) GLUCOSE BY METER POCT 97 70 - 99 mg/dL 03/10/2024 12:11 AM CDT RH LABORATORY POC Blood, Capillary BLOOD SPECIMEN / Unknown 03/10/2024 12:05 AM CDT 03/10/2024 12:11 AM CDT Ron DEAN - BEAKER POCT LABORATORY [facility] Lab [address] Lab (1st floor, no room number) [place] [phone] [place] [address] * (ABNORMAL) Hemoglobin (03/09/2024 11:50 PM CDT) Hemoglobin 7.5(L) 13.3 - 17.7 g/dL 03/09/2024 11:57 PM CDT RH LABORATORY Blood STRUCTURE OF RIGHT HAND / Unknown Venipuncture / Unknown 03/09/2024 11:50 PM CDT 03/09/2024 11:53 PM CDT Narrative Authorizing Provider Result Lauren Tripathi MD LAB - BLOOD ORDERABL ES [facility] Lab [address] Lab (1st floor, no room number) [place] [id number] * (ABNORMAL) Glucose by meter (03/09/2024 8:25 PM CDT) GLUCOSE BY METER POCT 159(H) 70 - 99 mg/dL 03/09/2024 8:32 PM CDT LABORATORY POC Blood, Capillary BLOOD SPECIMEN / Unknown 03/09/2024 8:25 PM CDT 03/09/2024 8:32 PM CDT Narrative Authorizing Provider Result Lauren DEAN - BEAKER POCT RH LABORATORY POC [facility] Acute Care Lab [address] Lab (1st floor, no room number) [place] [phone] [place] [address] * (ABNORMAL) Hemoglobin (03/09/2024 7:13 PM CDT) Hemoglobin 7.6(L) 13.3 - 17.7 g/dL 03/09/2024 7:27 PM CDT RH LABORATORY Blood VENOUS LINE / Unknown Venipuncture / Unknown 03/09/2024 7:13 PM CDT 03/09/2024 7:25 PM CDT Ron Tripathi MD LAB - BLOOD ORDERABL ES [facility] Lab [address] Lab (1st floor, no room number) [place] [phone] [place] [address] * (ABNORMAL) Glucose by meter (03/09/2024 4:12 PM CDT) GLUCOSE BY METER POCT 147(H) 70 - 99 mg/dL 03/09/2024 4:19 PM CDT LABORATORY POC Blood, Capillary BLOOD SPECIMEN / Unknown 03/09/2024 4:12 PM CDT 03/09/2024 4:19 PM CDT Ron Tripathi MD LAB - BEAKER POCT LABORATORY [facility] [address] Lab (1st floor, no room number) [address] * (ABNORMAL) Hemoglobin (03/09/2024 2:16 PM CDT) Hemoglobin 7.6(L) 13.3 - 17.7 g/dL 03/09/2024 2:43 PM CDT RH LABORATORY Blood VASCULAR LINE / Unknown Venipuncture / Unknown 03/09/2024 2:16 PM CDT 03/09/2024 2:29 PM CDT Ron Tripathi MD LAB - BLOOD ORDERABL ES LABORATORY [facility] [address] Lab (1st floor, no room number) [address] * (ABNORMAL) Glucose by meter (03/09/2024 1:35 PM CDT) GLUCOSE BY METER POCT 150(H) 70 - 99 mg/dL 03/09/2024 1:42 PM CDT RH LABORATORY POC Blood, Capillary BLOOD SPECIMEN / Unknown 03/09/2024 1:35 PM CDT 03/09/2024 1:42 PM CDT Ron Tripathi MD LAB - BEAKER POCT Performing Organization Address City/[facility]/ZIP Co de Phone Number LABORATORY POC [facility] [address] Lab (1st floor, no room number) [address] * Morphology Tracking (03/09/2024 9:12 AM CDT) Blood VENOUS LINE / Unknown Venipuncture / Unknown 03/09/2024 9:12 AM CDT 03/09/2024 9:26 AM CDT Antonino Cheek MD LAB - BLOOD ORDERABL ES LABORATORY [facility] [address] Lab (1st floor, no room number) [address] * (ABNORMAL) Reticulocyte count (03/09/2024 9:12 AM CDT) % Reticulocyte 2.8(H) 0.5 - 2.0 % 03/09/2024 9:33 AM CDT LABORATORY Absolute Reticulocyte 0.072 0.025 - 0.095 10e6/uL 03/09/2024 9:33 AM CDT RH LABORATORY Blood VENOUS LINE / Unknown Venipuncture / Unknown 03/09/2024 9:12 AM CDT 03/09/2024 9:26 AM CDT Antonino Cheek MD LAB - BLOOD ORDERABL ES RH LABORATORY [facility] [address] Lab (1st floor, no room number) [place] [address], [facility] * (ABNORMAL) CBC with [...] - 5.3 10e3/uL 03/09/2024 9:33 AM CDT RH LABORATORY Absolute Monocytes 0.7 0.0 - 1.3 [...] MD LAB - BLOOD ORDERABL ES LABORATORY [facility] [address] Lab (1st floor, no room number) [place] [address], [facility] * Bld morphology pathology review (03/09/2024 9:12 AM CDT) Final Diagnosis Peripheral blood for morphology: -Moderate normochromic, normocytic anemia without evidence of red cell regeneration; no morphologic or laboratory features of hemolysis detected -Slight mature neutrophilia without morphologic abnormalities 03/13/2024 10:17 AM CDT [facility] Comment Review of recent laboratory data notes normal LDH and haptoglobin. The history of GI bleeding and end-stage renal disease on hemodialysis are noted. Both conditions would contribute to the anemia present. 03/13/2024 10:17 AM [facility] Clinical Information Looking for signs of hemolysis 03/13/2024 10:17 AM [facility] Peripheral Smear ERYTHROCYTES: The hemoglobin [...] than 50: Marked thrombocytopenia 03/13/2024 10:17 AM [facility] Performing Labs The technical component of this testing was completed at [facility] 03/13/2024 10:17 AM [facility] Blood VENOUS LINE / Unknown [...] necessary for interpretation. Antonino DEAN - DAVID AP [facility] [address] 1st Floor, [address] [place] [address] * Haptoglobin (03/09/2024 9:12 AM CDT) Haptoglobin 127 30 - 200 mg/dL 03/10/2024 1:23 AM CDT [facility] LABORATORY Blood VENOUS LINE / Unknown Venipuncture / Unknown 03/09/2024 9:12 AM CDT 03/09/2024 9:26 AM CDT Antonino Cheek MD LAB - BLOOD ORDERABL ES [facility] LABORATORY [facility] [address] [address], [address] [place] [address], [facility] * Bilirubin Direct and Total (03/09/2024 9:12 AM CDT) Bilirubin Direct 0.22 0.00 - 0.30 mg/dL 03/09/2024 9:59 AM CDT LABORATORY Bilirubin Total 0.5 <=1.2 mg/dL 03/09/2024 9:59 AM CDT LABORATORY Blood VENOUS LINE / Unknown Venipuncture / Unknown 03/09/2024 9:12 AM CDT 03/09/2024 9:26 AM CDT Antonino Cheek MD LAB - BLOOD ORDERABL ES LABORATORY [facility] [address] Lab (1st floor, no room number) [place] [address], [facility] * Lactate Dehydrogenase (03/09/2024 9:12 AM CDT) Lactate Dehydrogenase 226 0 - 250 U/L 03/09/2024 9:59 AM CDT LABORATORY Blood VENOUS LINE / Unknown Venipuncture / Unknown 03/09/2024 9:12 AM CDT 03/09/2024 9:26 AM CDT Antonino Cheek MD LAB - BLOOD ORDERABL ES LABORATORY [facility] [address] Lab (1st floor, no room number) [address] * INR (03/09/2024 9:12 AM CDT) INR 1.13 0.85 - 1.15 03/09/2024 9:41 AM CDT LABORATORY Blood VENOUS LINE / Unknown Venipuncture / Unknown 03/09/2024 9:12 AM CDT 03/09/2024 9:26 AM CDT Eileen Earl MD LAB - BLOOD ORDERA BLES Performing Organization Address City/[facility]/ZIP Co de Phone Number LABORATORY [facility] [address] Lab (1st floor, no room number) [address] [place] [address] * Glucose by meter (03/09/2024 7:55 AM CDT) GLUCOSE BY METER POCT 91 70 - 99 mg/dL 03/09/2024 8:04 AM CDT LABORATORY POC Comment:Dr/RN Notified Blood, Capillary BLOOD SPECIMEN / Unknown 03/09/2024 7:55 AM CDT 03/09/2024 8:04 AM CDT Ron Tripathi MD LAB - BEAKER POCT LABORATORY POC [facility] [address] Lab (1st floor, no room number) [address] [place] [address] * (ABNORMAL) Renal panel (03/09/2024 5:49 AM CDT) [facility] Signature Sodium 124(L) 135 - 145 mmol/L 03/09/2024 [...] Earl MD LAB - BLOOD ORDERA BLES [facility] [address] Lab (1st floor, no room number) [address] [place] [address] * (ABNORMAL) Hemoglobin (03/09/2024 5:49 AM CDT) Hemoglobin 7.5(L) 13.3 - 17.7 g/dL 03/09/2024 6:00 AM CDT LABORATORY Blood VENOUS LINE / Unknown Venipuncture / Unknown 03/09/2024 5:49 AM CDT 03/09/2024 5:57 AM CDT Ron Tripathi MD LAB - BLOOD ORDERABL ES [facility] [address] Lab (1st floor, no room number) [place] [phone] [place] [address] * (ABNORMAL) Glucose by meter (03/09/2024 4:31 AM CDT) GLUCOSE BY METER POCT 112(H) 70 - 99 mg/dL 03/09/2024 4:37 AM CDT LABORATORY POC Blood, Capillary BLOOD SPECIMEN / Unknown 03/09/2024 4:31 AM CDT 03/09/2024 4:37 AM CDT Narrative Authorizing Provider Result Lauren Tripathi MD LAB - BEAKER POCT [facility] [address] Lab (1st floor, no room number) [address] [place] [address] * (ABNORMAL) Glucose by meter (03/09/2024 12:26 AM CDT) GLUCOSE BY METER POCT 124(H) 70 - 99 mg/dL 03/09/2024 12:32 AM CDT LABORATORY POC Blood, Capillary BLOOD SPECIMEN / Unknown 03/09/2024 12:26 AM CDT 03/09/2024 12:32 AM CDT Narrative Authorizing Provider Result Lauren Tripathi MD LAB - BEAKER POCT Performing Organization Address [facility]/ZIP Co de Phone Number LABORATORY [facility] [address] Lab (1st floor, no room number) [place] [phone] [place] [address] * (ABNORMAL) Hemoglobin (03/08/2024 10:35 PM CDT) Hemoglobin 7.5(L) 13.3 - 17.7 g/dL 03/08/2024 10:48 PM CDT LABORATORY Blood BLOOD SPECIMEN / Unknown Venipuncture / Unknown 03/08/2024 10:35 PM CDT 03/08/2024 10:45 PM CDT Antonino Cheek MD LAB - BLOOD ORDERABL ES Performing Organization Address [facility]/ZIP Co de Phone Number [facility] [address] Lab (1st floor, no room number) [place] [phone] * (ABNORMAL) Glucose by meter (03/08/2024 10:09 PM CDT) GLUCOSE BY METER POCT 116(H) 70 - 99 mg/dL 03/08/2024 10:15 PM CDT LABORATORY POC Blood, Capillary BLOOD SPECIMEN / Unknown 03/08/2024 10:09 PM CDT 03/08/2024 10:15 PM CDT Ron DEAN - BEAKER POCT LABORATORY [facility] [address] Lab (1st floor, no room number) [place] [phone] * (ABNORMAL) Glucose by meter (03/08/2024 8:11 PM CDT) GLUCOSE BY METER POCT 114(H) 70 - 99 mg/dL 03/08/2024 8:18 PM CDT RH LABORATORY POC Blood, Capillary BLOOD SPECIMEN / Unknown 03/08/2024 8:11 PM CDT 03/08/2024 8:18 PM CDT Narrative Authorizing Provider Result Lauren Tripathi MD LAB - BEAKER POCT LABORATORY [facility] [address] Lab (1st floor, no room number) [place] [phone] [place] [address] * Glucose by meter (03/08/2024 5:59 PM CDT) GLUCOSE BY METER POCT 84 70 - 99 mg/dL 03/08/2024 6:05 PM CDT RH LABORATORY POC Blood, Capillary BLOOD SPECIMEN / Unknown 03/08/2024 5:59 PM CDT 03/08/2024 6:05 PM CDT Narrative Authorizing Provider Result Lauren Tripathi MD LAB - BEAKER POCT Performing Organization Address City/[facility]/ZIP Co de Phone Number LABORATORY [facility] [address] Lab (1st floor, no room number) [place] [phone], [facility] * Glucose by meter (03/08/2024 5:28 PM CDT) GLUCOSE BY METER POCT 99 70 - 99 mg/dL 03/08/2024 5:35 PM CDT RH LABORATORY POC Blood, Capillary BLOOD SPECIMEN / Unknown 03/08/2024 5:28 PM CDT 03/08/2024 5:35 PM CDT Narrative Authorizing Provider Result Lauren DEAN - BEAKER POCT LABORATORY [facility] [address] Lab (1st floor, no room number) [place] [phone], [facility] * Glucose by meter (03/08/2024 5:02 PM CDT) GLUCOSE BY METER POCT 79 70 - 99 mg/dL 03/08/2024 5:08 PM CDT RH LABORATORY POC Blood, Capillary BLOOD SPECIMEN / Unknown 03/08/2024 5:02 PM CDT 03/08/2024 5:08 PM CDT Narrative Authorizing Provider Result Lauren DEAN - BEAKER POCT Performing Organization Address [facility]/ZIP Co de Phone Number LABORATORY [facility] [address] Lab (1st floor, no room number) [place] [phone] [place] [address] * (ABNORMAL) Glucose by meter (03/08/2024 4:36 PM CDT) GLUCOSE BY METER POCT 63(L) 70 - 99 mg/dL 03/08/2024 4:43 PM CDT LABORATORY POC Blood, Capillary BLOOD SPECIMEN / Unknown 03/08/2024 4:36 PM CDT 03/08/2024 4:43 PM CDT Narrative Authorizing Provider Result Lauren Tripathi MD LAB - BEAKER POCT Performing Organization Address [facility]/ZIP Co de Phone Number LABORATORY [facility] [address] Lab (1st floor, no room number) [place] [phone], [facility] * (ABNORMAL) Glucose by meter (03/08/2024 3:59 PM CDT) GLUCOSE BY METER POCT 68(L) 70 - 99 mg/dL 03/08/2024 4:06 PM CDT LABORATORY POC Blood, Capillary BLOOD SPECIMEN / Unknown 03/08/2024 3:59 PM CDT 03/08/2024 4:06 PM CDT Narrative Authorizing Provider Result Lauren Tripathi MD LAB - BEAKER POCT Performing Organization Address [facility]/ZIP Co de Phone Number LABORATORY [facility] [address] Lab (1st floor, no room number) [address] * (ABNORMAL) Hemoglobin (03/08/2024 2:42 PM CDT) Hemoglobin 8.1(L) 13.3 - 17.7 g/dL 03/08/2024 3:25 PM CDT LABORATORY Blood VASCULAR LINE / Unknown Venipuncture / Unknown 03/08/2024 2:42 PM CDT 03/08/2024 2:58 PM CDT Antonino Cheek MD LAB - BLOOD ORDERABL ES LABORATORY [facility] [address] Lab (1st floor, no room number) [place] [address] * (ABNORMAL) Glucose by meter (03/08/2024 2:16 PM CDT) GLUCOSE BY METER POCT 104(H) 70 - 99 mg/dL 03/08/2024 2:23 PM CDT LABORATORY POC Comment:Dr/RN Notified Blood, Capillary BLOOD SPECIMEN / Unknown 03/08/2024 2:16 PM CDT 03/08/2024 2:23 PM CDT Ron Tripathi MD LAB - BEAKER POCT LABORATORY [facility] [address] Lab (1st floor, no room number) [place] [address] * (ABNORMAL) Glucose by meter (03/08/2024 1:56 PM CDT) GLUCOSE BY METER POCT 52(L) 70 - 99 mg/dL 03/08/2024 2:03 PM CDT LABORATORY POC Blood, Capillary BLOOD SPECIMEN / Unknown 03/08/2024 1:56 PM CDT 03/08/2024 2:03 PM CDT Ron Tripathi MD LAB - BEAKER POCT LABORATORY [facility] [address] Lab (1st floor, no room number) [place] [address], [facility] * (ABNORMAL) Glucose by meter (03/08/2024 1:36 PM CDT) GLUCOSE BY METER POCT 69(L) 70 - 99 mg/dL 03/08/2024 1:49 PM CDT LABORATORY POC Blood, venous BLOOD SPECIMEN / Unknown 03/08/2024 1:36 PM CDT 03/08/2024 1:49 PM CDT Ron Tripathi MD [facility] POCT LABORATORY POC [facility] [address] Lab (1st floor, no room number) [place] [address] * Surgical Pathology Exam (03/08/2024 1:26 PM CDT) Case Report Surgical Pathology Report ? Case: [id number] ? Authorizing Provider: ??Eileen Earl MD ?Collected: ? 03/08/2024 01:26 PM ? Ordering Location: ? [facility] ?Received: ?03/08/2024 02:01 PM ? [facility] [place] ? Pathologist: ? Jae Cardona MD ? Specimen: ?Rectum, Rectum polyp ? 03/09/2024 10:13 AM [facility] Final Diagnosis Rectum, polypectomy: --Hyperplastic polyp. 03/09/2024 10:13 AM [facility] Clinical Information Procedure: Colonoscopy with polypectomy by cold biopsy forceps Pre-op Diagnosis: Anemia, unspecified type [D64.9] Post-op Diagnosis: D64.9 - Anemia, unspecified type [ICD-10-CM] 03/09/2024 10:13 AM [facility] Gross Description A(1). Rectum, Rectum polyp: The specimen is received in formalin, labeled with the patient's name, medical record number and other identifying information and designated ? rectum polyp? . It consists of 2 english soft tissue fragments ranging from 0.1-0.4 cm. Entirely submitted in one cassette. MARY Gates(ASCP)CM 03/08/2024 2:57 PM 03/09/2024 10:13 AM [facility] Microscopic Description Microscopic examination was performed. 03/09/2024 10:13 AM [facility] Performing Labs The technical component of this testing was completed at [facility]. Stain controls for all stains resulted within this report have been reviewed and show appropriate reactivity. 03/09/2024 10:13 AM [facility] Case Images 03/09/2024 10:13 AM [facility] Polyp RECTUM PART / Unknown 03/08/2024 1:26 PM CDT 03/08/2024 2:01 PM CDT Eileen DEAN - DAVID VALENCIA LABORATORY [facility] [address] [facility] Lab (1st floor, no room number) [place] [address], [facility] * COLONOSCOPY (03/08/2024 1:04 PM CDT) [facility] Patient Name: Herminio Victor ? Procedure [...] continuously. The ?Olympus Adult Colonoscope, Model # CF-SV015L, ?Censitrac # [id number] was introduced through the ?anus and advanced [...] Note Initiated On: 03/08/2024 1:04 PM MRN: ?[id number] Procedure Date: ? 03/08/2024 1:04:50 PM Scope Withdrawal Time: 0 hours 11 minutes 55 seconds Total Procedure Duration: 0 hours 17 minutes 23 seconds Estimated Blood Loss: ? Scope In: 1:12:27 PM Scope Out: 1:29:50 PM RADIOLOGY RESULTS 03/08/2024 1:04 PM CDT Eileen Earl MD PROCEDURES Performing Organization Address City/State/[facility] Co de Phone Number RADIOLOGY RESULTS * (ABNORMAL) Glucose by meter (03/08/2024 11:35 AM CDT) GLUCOSE BY METER POCT 112(H) 70 - 99 mg/dL 03/08/2024 11:41 AM CDT LABORATORY POC Blood, Capillary BLOOD SPECIMEN / Unknown 03/08/2024 11:35 AM CDT 03/08/2024 11:41 AM CDT Ron DEAN - DAVID POCT RH LABORATORY [facility] [address] Lab (1st floor, no room number) [address] [place] [address] * (ABNORMAL) Glucose by meter (03/08/2024 11:11 AM CDT) GLUCOSE BY METER POCT 65(L) 70 - 99 mg/dL 03/08/2024 11:17 AM CDT RH LABORATORY POC Blood, Capillary BLOOD SPECIMEN / Unknown 03/08/2024 11:11 AM CDT 03/08/2024 11:17 AM CDT Ron DEAN - DAVID POCT Performing Organization Address City/[facility]/ZIP Co de Phone Number LABORATORY [facility] [address] Lab (1st floor, no room number) [address] [place] [address] * CONDITIONAL Transfuse red blood cells (unit) 1; No special requirements (03/08/2024 10:44 AM CDT) Eileen Earl MD BLOOD TRANSFUSION ORDERABLES * Glucose by meter (03/08/2024 8:50 AM CDT) GLUCOSE BY METER POCT 85 70 - 99 mg/dL 03/08/2024 8:56 AM CDT RH LABORATORY POC Blood, Capillary BLOOD SPECIMEN / Unknown 03/08/2024 8:50 AM CDT 03/08/2024 8:56 AM CDT Ron HERNANDEZ POCT LABORATORY [facility] [address] Lab (1st floor, no room number) [address] * CONDITIONAL Prepare red blood cells (unit) (03/08/2024 7:50 AM CDT) Blood Component Type Red Blood Cells RH BLOOD BANK Product Code [id number] RH BLOO D BANK Unit Status Transfused RH BLOO D BANK Unit Number [id number] RH B LOOD BANK CROSSMATCH Compatible RH BLOOD BANK CODING SYSTEM [id number] RH BLO OD BANK ISSUE DATE AND TIME [id number] RH BLOOD BANK UNIT ABO/RH O+ RH BLOOD BANK UNIT TYPE ISBT 5100 RH BL OOD BANK 03/08/2024 7:50 AM CDT Eileen Earl MD BLOOD BANK PRODUCT ORDERABLES RH BLOOD BANK [address] [place] [address], [facility] * (ABNORMAL) Renal panel (03/08/2024 6:25 [...] - BLOOD ORDERA BLES Performing Organization Address [facility]/ZIP Co de Phone Number LABORATORY [facility] [address] Lab (1st floor, no room number) [address] * (ABNORMAL) INR (03/08/2024 6:25 AM CDT) INR 1.18(H) 0.85 - 1.15 03/08/2024 7:03 AM CDT RH LABORATORY Blood STRUCTURE OF RIGHT UPPER LIMB / Unknown Venipuncture / Unknown 03/08/2024 6:25 AM CDT 03/08/2024 6:39 AM CDT Eileen Earl MD LAB - BLOOD ORDERA BLES Performing Organization Address [facility] Co de Phone Number LABORATORY [facility] [address] Lab (1st floor, no room number) [address] * (ABNORMAL) Hemoglobin (03/08/2024 6:25 AM CDT) Hemoglobin 6.7(LL) 13.3 - 17.7 g/dL 03/08/2024 7:01 AM CDT RH LABORATORY Blood STRUCTURE OF RIGHT UPPER LIMB / Unknown Venipuncture / Unknown 03/08/2024 6:25 AM CDT 03/08/2024 6:39 AM CDT Antonino Cheek MD LAB - BLOOD ORDERABL ES Performing Organization Address [facility]/ZIP Co de Phone Number [facility] [address] Lab (1st floor, no room number) [place] [address] * (ABNORMAL) Glucose by meter (03/08/2024 6:00 AM CDT) GLUCOSE BY METER POCT 111(H) 70 - 99 mg/dL 03/08/2024 6:07 AM CDT RH LABORATORY POC Blood, Capillary BLOOD SPECIMEN / Unknown 03/08/2024 6:00 AM CDT 03/08/2024 6:07 AM CDT Ron DEAN - BEAKER POCT Performing Organization Address [facility]/ZIP Co de Phone Number [facility] [address] Lab (1st floor, no room number) [place] [address] * Glucose by meter (03/08/2024 3:08 AM CDT) GLUCOSE BY METER POCT 90 70 - 99 mg/dL 03/08/2024 3:15 AM CDT LABORATORY POC Blood, Capillary BLOOD SPECIMEN / Unknown 03/08/2024 3:08 AM CDT 03/08/2024 3:15 AM CDT Ron HERNANDEZ POCT Performing Organization Address [facility]/ZIP Co de Phone Number LABORATORY [facility] [address] Lab (1st floor, no room number) [place] [address] * Glucose by meter (03/08/2024 2:01 AM CDT) GLUCOSE BY METER POCT 76 70 - 99 mg/dL 03/08/2024 2:07 AM CDT LABORATORY POC Blood, Capillary BLOOD SPECIMEN / Unknown 03/08/2024 2:01 AM CDT 03/08/2024 2:07 AM CDT Ron Tripathi MD LAB - BEAKER POCT LABORATORY POC [facility] [address] Lab (1st floor, no room number) [place] [address] * (ABNORMAL) Hemoglobin (03/08/2024 1:12 AM CDT) Hemoglobin 7.6(L) 13.3 - 17.7 g/dL 03/08/2024 1:33 AM CDT LABORATORY Blood STRUCTURE OF LEFT HAND / Unknown Venipuncture / Unknown 03/08/2024 1:12 AM CDT 03/08/2024 1:30 AM CDT Antonino Cheek MD LAB - BLOOD ORDERABL ES Performing Organization Address City/[facility]/ZIP Co de Phone Number LABORATORY [facility] [address] Lab (1st floor, no room number) [place] [phone] * US Upper Extremity Venous Duplex [...] US UPPER EXTREMITY VENOUS DUPLEX RIGHT LOCATION: [facility] DATE: 03/07/2024 INDICATION: Swelling, looking [...] US UPPER EXTREMITY VENOUS DUPLEX RIGHT LOCATION: [facility] DATE: 03/07/2024 INDICATION: Swelling, looking [...] - 99 mg/dL 03/07/2024 9:38 PM CDT RH LABORATORY POC Blood, Capillary BLOOD SPECIMEN / Unknown 03/07/2024 9:31 PM CDT 03/07/2024 9:38 PM CDT Ron DEAN [facility] POCT RH LABORATORY [facility] [address] Lab (1st floor, no room number) [place] [address] * (ABNORMAL) Hemoglobin (03/07/2024 6:58 PM CDT) Hemoglobin 8.6(L) 13.3 - 17.7 g/dL 03/07/2024 8:44 PM CDT RH LABORATORY Blood STRUCTURE OF RIGHT HAND / Unknown Venipuncture / Unknown 03/07/2024 6:58 PM CDT 03/07/2024 7:06 PM CDT Antonino Cheek MD LAB - BLOOD ORDERABL ES Performing Organization Address City/[facility]/ZIP Co de Phone Number [facility] [address] Lab (1st floor, no room number) [place] [phone] [place] [address] * Glucose by meter (03/07/2024 6:56 PM CDT) GLUCOSE BY METER POCT 86 70 - 99 mg/dL 03/07/2024 7:03 PM CDT RH LABORATORY POC Blood, Capillary BLOOD SPECIMEN / Unknown 03/07/2024 6:56 PM CDT 03/07/2024 7:03 PM CDT Ron Tripathi MD LAB - BEAKER POCT Performing Organization Address [facility]/ZIP Co de Phone Number LABORATORY [facility] [address] Lab (1st floor, no room number) [place] [phone] [place] [address] * Glucose by meter (03/07/2024 5:03 PM CDT) GLUCOSE BY METER POCT 79 70 - 99 mg/dL 03/07/2024 5:10 PM CDT LABORATORY POC Blood, Capillary BLOOD SPECIMEN / Unknown 03/07/2024 5:03 PM CDT 03/07/2024 5:10 PM CDT Ron DEAN - BEAKER POCT Performing Organization Address City/[facility]/ZIP Co de Phone Number LABORATORY [facility] [address] Lab (1st floor, no room number) [place] [id number], [facility] * Single Lumen Midline Placement (03/07/2024 1:34 PM CDT) Narrative Patricio Bocanegra RN - 03/07/2024 1:34 PM CDT Patricio Bocanegra RN ? 03/07/2024 ??1:41 PM [facility] Single Lumen Midline Placement Date/Time: 03/07/2024 1:34 [...] procedure a time out was called ?? Castell Protocol: the Joint Commission Castell Protocol was followed ?? Preparation: Patient was [...] size: 4 Fr Brand: Bard Lot number: [id number] Placement method: venipuncture, MST and ultrasound Number [...] 11:30 AM CDT 03/07/2024 11:37 AM CDT Narrative Authorizing Provider Result Lauren Tripathi MD LAB - BEAKER POCT Performing Organization Address [facility]/ZIP Co de Phone Number LABORATORY [facility] [address] Lab (1st floor, no room number) [address] * Glucose by meter (03/07/2024 8:49 AM CDT) GLUCOSE BY METER POCT 77 70 - 99 mg/dL 03/07/2024 8:56 AM CDT LABORATORY POC Blood, Capillary BLOOD SPECIMEN / Unknown 03/07/2024 8:49 AM CDT 03/07/2024 8:56 AM CDT Narrative Authorizing Provider Result Lauren DEAN - BEAKER POCT Performing Organization Address [facility] de Phone Number LABORATORY [facility] [address] Lab (1st floor, no room number) [address] * (ABNORMAL) Renal panel (03/07/2024 6:21 [...] MD LAB - BLOOD ORDERA BLES LABORATORY [facility] [address] Lab (1st floor, no room number) [place] [address], [facility] * (ABNORMAL) INR (03/07/2024 6:21 AM CDT) INR 1.28(H) 0.85 - 1.15 03/07/2024 7:17 AM CDT LABORATORY Blood BLOOD SPECIMEN / Unknown Venipuncture / Unknown 03/07/2024 6:21 AM CDT 03/07/2024 7:06 AM CDT Eileen Earl MD LAB - BLOOD ORDERA BLES LABORATORY [facility] [address] Lab (1st floor, no room number) [place] [address] * (ABNORMAL) Hemoglobin (03/07/2024 6:21 AM CDT) Hemoglobin 7.8(L) 13.3 - 17.7 g/dL 03/07/2024 7:11 AM CDT RH LABORATORY Blood BLOOD SPECIMEN / Unknown Venipuncture / Unknown 03/07/2024 6:21 AM CDT 03/07/2024 7:06 AM CDT Eileen Earl MD LAB - BLOOD ORDERA BLES Performing Organization Address City/[facility]/ZIP Co de Phone Number LABORATORY [facility] [address] Lab (1st floor, no room number) [place] [address] * Glucose by meter (03/07/2024 6:19 AM CDT) GLUCOSE BY METER POCT 98 70 - 99 mg/dL 03/07/2024 6:26 AM CDT LABORATORY POC Blood, Capillary BLOOD SPECIMEN / Unknown 03/07/2024 6:19 AM CDT 03/07/2024 6:26 AM CDT Ron Tripathi MD LAB - BEAKER POCT LABORATORY POC [facility] [address] Lab (1st floor, no room number) [place] [address] * Glucose by meter (03/07/2024 4:05 AM CDT) GLUCOSE BY METER POCT 78 70 - 99 mg/dL 03/07/2024 4:11 AM CDT RH LABORATORY POC Blood, Capillary BLOOD SPECIMEN / Unknown 03/07/2024 4:05 AM CDT 03/07/2024 4:11 AM CDT Ron DEAN - BEXIANG POCT Performing Organization Address City/[facility]/ZIP Co de Phone Number LABORATORY [facility] [address] Lab (1st floor, no room number) [place] [address] * (ABNORMAL) Hemoglobin (03/07/2024 1:04 AM CDT) Hemoglobin 7.6(L) 13.3 - 17.7 g/dL 03/07/2024 1:17 AM CDT LABORATORY Blood STRUCTURE OF LEFT HAND / Unknown Venipuncture / Unknown 03/07/2024 1:04 AM CDT 03/07/2024 1:14 AM CDT Eileen Earl MD LAB - BLOOD ORDERA BLES Performing Organization Address [facility]/ZIP Co de Phone Number [facility] Lab [address] Lab (1st floor, no room number) [place] [address], [facility] * (ABNORMAL) Glucose by meter (03/07/2024 12:40 AM CDT) GLUCOSE BY METER POCT 116(H) 70 - 99 mg/dL 03/07/2024 12:48 AM CDT LABORATORY POC Blood, Capillary BLOOD SPECIMEN / Unknown 03/07/2024 12:40 AM CDT 03/07/2024 12:48 AM CDT Ron DEAN - DAVID POCT Performing Organization Address City/[facility]/ZIP Co de Phone Number LABORATORY [facility] [address] Lab (1st floor, no room number) [place] [address], [facility] * (ABNORMAL) Glucose by meter (03/06/2024 9:36 PM CDT) GLUCOSE BY METER POCT 112(H) 70 - 99 mg/dL 03/06/2024 9:44 PM CDT LABORATORY POC Blood, Capillary BLOOD SPECIMEN / Unknown 03/06/2024 9:36 PM CDT 03/06/2024 9:44 PM CDT Narrative Authorizing Provider Result Lauren Tripathi MD LAB - BEAKER POCT Performing Organization Address [facility]/ZIP Co de Phone Number LABORATORY [facility] [address] Lab (1st floor, no room number) [address] [place] [address] * Extra Serum Separator Tube (SST) (03/06/2024 7:55 PM CDT) Hold Specimen JIC 03/06/2024 9:03 PM CDT LABORATORY Blood BLOOD SPECIMEN / Unknown Venipuncture / Unknown 03/06/2024 7:55 PM CDT 03/06/2024 7:55 PM CDT Narrative Authorizing Provider Result Lauren Tripathi MD LAB - BLOOD ORDERABL ES Performing Organization Address [facility]/ZIP Co de Phone Number [facility] Lab [address] Lab (1st floor, no room number) [place] [phone] [place] [address] * (ABNORMAL) Glucose by meter (03/06/2024 6:37 PM CDT) GLUCOSE BY METER POCT 112(H) 70 - 99 mg/dL 03/06/2024 6:45 PM CDT LABORATORY POC Blood, Capillary BLOOD SPECIMEN / Unknown 03/06/2024 6:37 PM CDT 03/06/2024 6:45 PM CDT Narrative Authorizing Provider Result Lauren Tripathi MD LAB - BEAKER POCT Performing Organization Address [facility]/ZIP Co de Phone Number [facility] Lab [address] Lab (1st floor, no room number) [address] * (ABNORMAL) CBC with platelets and [...] - BLOOD ORDERABL ES Performing Organization Address City/[facility]/ZIP Co de Phone Number [facility] [address] Lab (1st floor, no room number) [address] * (ABNORMAL) Glucose (03/06/2024 4:28 PM CDT) Glucose 196(H) 70 - 99 mg/dL 03/06/2024 4:54 PM CDT RH LABORATORY Blood STRUCTURE OF LEFT UPPER LIMB / Unknown Venipuncture / Unknown 03/06/2024 4:28 PM CDT 03/06/2024 4:32 PM CDT Antonino Cheek MD LAB - BLOOD ORDERABL ES Performing Organization Address City/[facility]/ZIP Co de Phone Number LABORATORY [facility] Lab [address] Lab (1st floor, no room number) [address] * (ABNORMAL) Basic metabolic panel (03/06/2024 [...] MD LAB - BLOOD ORDERABL ES LABORATORY [facility] [address] [facility] Lab (1st floor, no room number) [place] [address] * (ABNORMAL) Hemoglobin (03/06/2024 4:28 PM CDT) Hemoglobin 7.4(L) 13.3 - 17.7 g/dL 03/06/2024 4:47 PM CDT RH LABORATORY Blood STRUCTURE OF LEFT UPPER LIMB / Unknown Venipuncture / Unknown 03/06/2024 4:28 PM CDT 03/06/2024 4:33 PM CDT Eileen Earl MD LAB - BLOOD UBALDO VIGNESHRobin LABORATORY [facility] Lab [address] Lab (1st floor, no room number) [address] [place] [address] * (ABNORMAL) Glucose by meter (03/06/2024 4:26 PM CDT) GLUCOSE BY METER POCT 196(H) 70 - 99 mg/dL 03/06/2024 4:33 PM CDT RH LABORATORY POC Blood, Capillary BLOOD SPECIMEN / Unknown 03/06/2024 4:26 PM CDT 03/06/2024 4:33 PM CDT Ron Tripathi MD LAB - BEAKER POCT Performing Organization Address [facility]/ZIP Co de Phone Number LABORATORY POC [facility] Lab [address] Lab (1st floor, no room number) [address] * (ABNORMAL) Glucose by meter (03/06/2024 4:17 PM CDT) GLUCOSE BY METER POCT 38(LL) 70 - 99 mg/dL 03/06/2024 4:24 PM CDT RH LABORATORY POC Comment:/LINDA Notified Blood, Capillary BLOOD SPECIMEN / Unknown 03/06/2024 4:17 PM CDT 03/06/2024 4:24 PM CDT Ron DEAN - BEAKER POCT LABORATORY [facility] [address] Lab (1st floor, no room number) [address] [place] [address] * (ABNORMAL) Glucose by meter (03/06/2024 4:10 PM CDT) GLUCOSE BY METER POCT 47(LL) 70 - 99 mg/dL 03/19/2024 8:02 AM CDT RH LABORATORY POC Comment:/RN Notified Blood, Capillary BLOOD SPECIMEN / Unknown 03/06/2024 4:10 PM CDT 03/19/2024 8:02 AM CDT Narrative Authorizing Provider Result Lauren DEAN - BEAKER POCT Performing Organization Address [facility]/ZIP Co de Phone Number LABORATORY [facility] [address] Lab (1st floor, no room number) [place] [address], [facility] * (ABNORMAL) Glucose by meter (03/06/2024 3:18 PM CDT) GLUCOSE BY METER POCT 64(L) 70 - 99 mg/dL 03/06/2024 3:26 PM CDT LABORATORY POC Blood, Capillary BLOOD SPECIMEN / Unknown 03/06/2024 3:18 PM CDT 03/06/2024 3:26 PM CDT Narrative Authorizing Provider Result Lauren DEAN - BEXIANG POCT Performing Organization Address [facility]/ZIP Co de Phone Number LABORATORY [facility] [address] Lab (1st floor, no room number) [place] [address], [facility] * (ABNORMAL) Glucose by meter (03/06/2024 3:03 PM CDT) GLUCOSE BY METER POCT 63(L) 70 - 99 mg/dL 03/06/2024 3:11 PM CDT LABORATORY POC Blood, Capillary BLOOD SPECIMEN / Unknown 03/06/2024 3:03 PM CDT 03/06/2024 3:11 PM CDT Narrative Authorizing Provider Result Lauren DEAN - DAVID POCT Performing Organization Address [facility]/ZIP Co de Phone Number LABORATORY [facility] [address] Lab (1st floor, no room number) [place] [address], [facility] * (ABNORMAL) Hemoglobin - Pre-Op (03/06/2024 1:23 PM CDT) Hemoglobin 7.6(L) 13.3 - 17.7 g/dL 03/06/2024 1:39 PM CDT LABORATORY Blood STRUCTURE OF RIGHT UPPER LIMB / Unknown Venipuncture / Unknown 03/06/2024 1:23 PM CDT 03/06/2024 1:34 PM CDT Antonino Cheek MD LAB - BLOOD ORDERABL ES LABORATORY [facility] [address] Lab (1st floor, no room number) [place] [address] * UPPER GI ENDOSCOPY (03/06/2024 1:21 PM CDT) [facility] Upper GI Endoscopy [facility] Patient Name: Herminio Victor ? Procedure Date: [...] ?Olympus Gastroscope, Model # GIF-H190, Censitrac # [id number] was introduced through the mouth, and ?advanced [...] Note Initiated On: 03/06/2024 1:21 PM MRN: ?[id number] Procedure Date: ? 03/06/2024 1:21:29 PM Total [...] PM CDT Ron DEAN - DAVID POCT RH LABORATORY [facility] [address] Lab (1st floor, no room number) [place] [id number] * Transfuse red blood cells (unit) (03/06/2024 12:05 PM CDT) Antonino Cheek MD BLOOD TRANSFUSION OR DERABLES * Transfuse red blood cells (unit), 1 Units (03/06/2024 12:05 PM CDT) Antonino Cheek MD BLOOD TRANSFUSION OR DERABLES * Glucose by meter (03/06/2024 12:01 PM CDT) GLUCOSE BY METER POCT 81 70 - 99 mg/dL 03/06/2024 12:08 PM CDT LABORATORY POC Blood, Capillary BLOOD SPECIMEN / Unknown 03/06/2024 12:01 PM CDT 03/06/2024 12:08 PM CDT Ron DEAN - DAVID POCT Performing Organization Address City/[facility]/ZIP Co de Phone Number LABORATORY [facility] [address] Lab (1st floor, no room number) [place] [phone] [place] [address] * Adult Type and Screen (03/06/2024 8:53 AM CDT) ABO/RH(D) O POS 03/06/2024 7:57 AM CDT RH BLOOD BANK Antibody Screen Negative Negative 03/06/2024 7:57 AM CDT RH BLOOD BANK SPECIMEN EXPIRATION DATE [id number] 03/06/2024 7:57 AM CDT RH BLOOD BANK Blood STRUCTURE OF RIGHT HAND / Unknown Venipuncture / Unknown 03/06/2024 8:53 AM CDT 03/06/2024 9:00 AM CDT Antonino Cheek MD LAB - BLOOD BANK SHANNON T ORDER Performing Organization Address City/[facility]/ZIP Co de Phone Number RH BLOOD BANK [address] * Glucose by meter (03/06/2024 7:57 AM CDT) GLUCOSE BY METER POCT 87 70 - 99 mg/dL 03/06/2024 8:04 AM CDT RH LABORATORY POC Blood, Capillary BLOOD SPECIMEN / Unknown 03/06/2024 7:57 AM CDT 03/06/2024 8:04 AM CDT Ron Tripathi MD LAB - BEAKER POCT Performing Organization Address [facility]/ZIP Co de Phone Number RH LABORATORY POC [facility] Lab [address] [facility] Lab (1st floor, no room number) [address] * Prepare red blood cells (unit) (03/06/2024 7:50 AM CDT) Blood Component Type Red Blood Cells RH BLOOD BANK Product Code [id number] RH BLOO D BANK Unit Status Transfused RH BLOO D BANK Unit Number [id number] RH B LOOD BANK CROSSMATCH Compatible RH BLOOD BANK CODING SYSTEM [id number] RH BLO OD BANK ISSUE DATE AND TIME [id number] RH BLOOD BANK UNIT ABO/RH O+ RH BLOOD BANK UNIT TYPE ISBT 5100 RH BL OOD BANK 03/06/2024 7:50 AM CDT Antonino Cheek MD BLOOD BANK PRODUCT O RDERABLES Performing Organization Address City/[facility]/ZIP Co de Phone Number RH BLOOD BANK [address] * (ABNORMAL) Renal panel (03/06/2024 6:54 AM [...] MD LAB - BLOOD ORDERA BLES LABORATORY [facility] [address] [facility] Lab (1st floor, no room number) [place] [address], [facility] * (ABNORMAL) Hemoglobin (03/06/2024 6:54 AM CDT) Hemoglobin 7.0(L) 13.3 - 17.7 g/dL 03/06/2024 7:04 AM CDT RH LABORATORY Blood STRUCTURE OF RIGHT HAND / Unknown Venipuncture / Unknown 03/06/2024 6:54 AM CDT 03/06/2024 7:00 AM CDT Antonino Cheek MD LAB - BLOOD ORDERABL ES LABORATORY [facility] [address] Lab (1st floor, no room number) [address] [place] [address] * (ABNORMAL) INR (03/06/2024 6:54 AM CDT) INR 1.51(H) 0.85 - 1.15 03/06/2024 7:19 AM CDT RH LABORATORY Blood STRUCTURE OF RIGHT HAND / Unknown Venipuncture / Unknown 03/06/2024 6:54 AM CDT 03/06/2024 7:00 AM CDT Eileen Earl MD LAB - BLOOD ORDERA BLES [facility] [address] Lab (1st floor, no room number) [place] [phone] [place] [address] * Glucose by meter (03/06/2024 4:05 AM CDT) GLUCOSE BY METER POCT 90 70 - 99 mg/dL 03/06/2024 4:21 AM CDT LABORATORY POC Blood, Capillary BLOOD SPECIMEN / Unknown 03/06/2024 4:05 AM CDT 03/06/2024 4:21 AM CDT Ron Tripathi MD LAB - BEAKER POCT LABORATORY POC [facility] Lab [address] Lab (1st floor, no room number) [place] [phone] [place] [address] * (ABNORMAL) Glucose by meter (03/06/2024 12:01 AM CDT) GLUCOSE BY METER POCT 101(H) 70 - 99 mg/dL 03/06/2024 12:13 AM CDT RH LABORATORY POC Blood, Capillary BLOOD SPECIMEN / Unknown 03/06/2024 12:01 AM CDT 03/06/2024 12:13 AM CDT Ron Tripathi MD LAB - BEAKER POCT LABORATORY [facility] Lab [address] Lab (1st floor, no room number) [place] [phone] [place] [address] * Glucose by meter (03/05/2024 10:01 PM CDT) GLUCOSE BY METER POCT 87 70 - 99 mg/dL 03/05/2024 10:09 PM CDT RH LABORATORY POC Blood, Capillary BLOOD SPECIMEN / Unknown 03/05/2024 10:01 PM CDT 03/05/2024 10:09 PM CDT Ron DEAN - BEAKER POCT Performing Organization Address [facility]/ZIP Co de Phone Number LABORATORY [facility] Lab [address] Lab (1st floor, no room number) [address] * (ABNORMAL) Hemoglobin (03/05/2024 6:53 PM CDT) Hemoglobin 8.4(L) 13.3 - 17.7 g/dL 03/05/2024 7:07 PM CDT RH LABORATORY Blood STRUCTURE OF LEFT HAND / Unknown Venipuncture / Unknown 03/05/2024 6:53 PM CDT 03/05/2024 7:02 PM CDT Antonino Cheek MD LAB - BLOOD ORDERABL ES Performing Organization Address [facility]/ZIP Co de Phone Number LABORATORY [facility] Lab [address] Lab (1st floor, no room number) [place] [address] * Glucose by meter (03/05/2024 5:47 PM CDT) Pathologist [facility] GLUCOSE BY METER POCT 96 70 - 99 mg/dL 03/05/2024 5:54 PM CDT LABORATORY POC Blood, Capillary BLOOD SPECIMEN / Unknown 03/05/2024 5:47 PM CDT 03/05/2024 5:54 PM CDT Ron Tripathi MD LAB - BEAKER POCT Performing Organization Address [facility] Co de Phone Number LABORATORY POC [facility] Lab [address] Lab (1st floor, no room number) [place] [address] * CONDITIONAL Transfuse red blood cells (unit) 1; No special requirements (03/05/2024 4:07 PM CDT) Eileen Earl MD BLOOD TRANSFUSION ORDERABLES * CONDITIONAL Prepare red blood cells (unit) (03/05/2024 12:47 PM CDT) [facility] Blood Component Type Red Blood Cells RH BLOOD BANK Product Code [id number] RH BLOO D BANK Unit Status Transfused RH BLOO D BANK Unit Number [id number] RH B LOOD BANK CROSSMATCH Compatible RH BLOOD BANK CODING SYSTEM [id number] RH BLO OD BANK ISSUE DATE AND TIME [id number] RH BLOOD BANK UNIT ABO/RH O+ RH BLOOD BANK UNIT TYPE ISBT 5100 RH BL OOD BANK 03/05/2024 12:4 7 PM CDT Ron Tripathi MD BLOOD BANK PRODUCT O RDERABLES Performing Organization Address [facility]/ZIP Co de Phone Number RH BLOOD BANK [address] [place] [address] * (ABNORMAL) Hemoglobin (03/05/2024 12:12 PM CDT) Pathologist [facility] Hemoglobin 6.9(LL) 13.3 - 17.7 g/dL 03/05/2024 12:40 PM CDT LABORATORY Blood STRUCTURE OF LEFT HAND / Unknown Venipuncture / Unknown 03/05/2024 12:12 PM CDT 03/05/2024 12:21 PM CDT Antonino Cheek MD LAB - BLOOD ORDERABL ES [facility] Lab [address] Lab (1st floor, no room number) [place] [address], [facility] * (ABNORMAL) Glucose by meter (03/05/2024 12:06 PM CDT) GLUCOSE BY METER POCT 107(H) 70 - 99 mg/dL 03/05/2024 12:13 PM CDT LABORATORY POC Blood, Capillary BLOOD SPECIMEN / Unknown 03/05/2024 12:06 PM CDT 03/05/2024 12:13 PM CDT Ron DEAN - BEAKER POCT Performing Organization Address City/[facility]/ZIP Co de Phone Number LABORATORY [facility] Lab [address] Lab (1st floor, no room number) [place] [address], [facility] * Glucose by meter (03/05/2024 7:58 AM CDT) GLUCOSE BY METER POCT 83 70 - 99 mg/dL 03/05/2024 8:04 AM CDT LABORATORY POC Blood, Capillary BLOOD SPECIMEN / Unknown 03/05/2024 7:58 AM CDT 03/05/2024 8:04 AM CDT Ron DEAN - BEAKER POCT LABORATORY [facility] Lab [address] Lab (1st floor, no room number) [place] [address] * (ABNORMAL) Hemoglobin (03/05/2024 7:35 AM CDT) Hemoglobin 7.1(L) 13.3 - 17.7 g/dL 03/05/2024 8:01 AM CDT LABORATORY Blood STRUCTURE OF LEFT HAND / Unknown Venipuncture / Unknown 03/05/2024 7:35 AM CDT 03/05/2024 7:57 AM CDT Aashish Romero DO LAB - BLOOD ORDER NADIA LABORATORY [facility] Lab [address] Lab (1st floor, no room number) [place] [phone] [place] [address] * (ABNORMAL) INR (03/05/2024 7:35 AM CDT) Pathologist [facility] INR 2.20(H) 0.85 - 1.15 03/05/2024 8:13 AM CDT LABORATORY Blood STRUCTURE OF LEFT HAND / Unknown Venipuncture / Unknown 03/05/2024 7:35 AM CDT 03/05/2024 7:57 AM CDT Eileen Earl MD LAB - BLOOD ORDERA BLES Performing Organization Address City/[facility]/ZIP Co de Phone Number LABORATORY [facility] Lab [address] Lab (1st floor, no room number) [place] [phone] [place] [address] * (ABNORMAL) Comprehensive metabolic panel (03/05/2024 7:35 [...] LAB - BLOOD ORDER NADIA RH LABORATORY [facility] Lab [address] Lab (1st floor, no room number) [place] [address] * (ABNORMAL) CBC with platelets (03/05/2024 [...] [facility] Lab [address] Lab (1st floor, no room number) [address] * (ABNORMAL) Glucose by meter (03/05/2024 4:09 AM CDT) GLUCOSE BY METER POCT 107(H) 70 - 99 mg/dL 03/05/2024 4:16 AM CDT RH LABORATORY POC Blood, Capillary BLOOD SPECIMEN / Unknown 03/05/2024 4:09 AM CDT 03/05/2024 4:16 AM CDT Ron DEAN - DAVID POCT LABORATORY [facility] Lab [address] Lab (1st floor, no room number) [address] * (ABNORMAL) Glucose by meter (03/05/2024 3:22 AM CDT) GLUCOSE BY METER POCT 115(H) 70 - 99 mg/dL 03/05/2024 3:30 AM CDT LABORATORY POC Blood, Capillary BLOOD SPECIMEN / Unknown 03/05/2024 3:22 AM CDT 03/05/2024 3:30 AM CDT Narrative Authorizing Provider Result Lauren DEAN - DAVID POCT LABORATORY [facility] Lab [address] Lab (1st floor, no room number) [address] * (ABNORMAL) Glucose by meter (03/05/2024 12:07 AM CDT) GLUCOSE BY METER POCT 118(H) 70 - 99 mg/dL 03/05/2024 12:14 AM CDT LABORATORY POC Blood, Capillary BLOOD SPECIMEN / Unknown 03/05/2024 12:07 AM CDT 03/05/2024 12:14 AM CDT Ron DEAN - BEAKER POCT Performing Organization Address [facility]/ZIP Co de Phone Number LABORATORY [facility] Lab [address] Lab (1st floor, no room number) [address] [place] [address] * (ABNORMAL) Glucose by meter (03/04/2024 9:37 PM CDT) GLUCOSE BY METER POCT 132(H) 70 - 99 mg/dL 03/04/2024 9:45 PM CDT RH LABORATORY POC Blood, Capillary BLOOD SPECIMEN / Unknown 03/04/2024 9:37 PM CDT 03/04/2024 9:45 PM CDT Ron Tripathi MD LAB - DAVID POCT Performing Organization Address [facility]/ZIP Co de Phone Number LABORATORY [facility] [address] Lab (1st floor, no room number) [address] [place] [address] * (ABNORMAL) Glucose by meter (03/04/2024 8:34 PM CDT) GLUCOSE BY METER POCT 122(H) 70 - 99 mg/dL 03/04/2024 8:41 PM CDT LABORATORY POC Blood, Capillary BLOOD SPECIMEN / Unknown 03/04/2024 8:34 PM CDT 03/04/2024 8:41 PM CDT Ron DEAN - DAVID POCT Performing Organization Address City/[facility]/ZIP Co de Phone Number LABORATORY [facility] Lab [address] Lab (1st floor, no room number) [place] [phone] [place] [address] * (ABNORMAL) Potassium (03/04/2024 6:29 PM CDT) Potassium 5.6(H) 3.4 - 5.3 mmol/L 03/04/2024 7:00 PM CDT RH LABORATORY Blood STRUCTURE OF LEFT HAND / Unknown Venipuncture / Unknown 03/04/2024 6:29 PM CDT 03/04/2024 6:37 PM CDT Job Her MD LAB - BLOOD ORDERABL ES LABORATORY [facility] Lab [address] Lab (1st floor, no room number) [place] [phone] [place] [address] * (ABNORMAL) Hemoglobin (03/04/2024 6:29 PM CDT) Hemoglobin 7.7(L) 13.3 - 17.7 g/dL 03/04/2024 6:41 PM CDT RH LABORATORY Blood STRUCTURE OF LEFT HAND / Unknown Venipuncture / Unknown 03/04/2024 6:29 PM CDT 03/04/2024 6:37 PM CDT Aashish Romero DO LAB - BLOOD ORDER NADIA [facility] [address] Lab (1st floor, no room number) [place] [phone] * Glucose by meter (03/04/2024 5:44 PM CDT) GLUCOSE BY METER POCT 93 70 - 99 mg/dL 03/04/2024 5:51 PM CDT LABORATORY POC Blood, Capillary BLOOD SPECIMEN / Unknown 03/04/2024 5:44 PM CDT 03/04/2024 5:51 PM CDT Ron Tripathi MD LAB - BEAKER POCT LABORATORY POC [facility] [address] Lab (1st floor, no room number) [place] [phone] [place] [address] * Glucose by meter (03/04/2024 3:12 PM CDT) GLUCOSE BY METER POCT 96 70 - 99 mg/dL 03/04/2024 3:19 PM CDT [facility] LABORATORY POC Blood, Capillary BLOOD SPECIMEN / Unknown 03/04/2024 3:12 PM CDT 03/04/2024 3:19 PM CDT Narrative Authorizing Provider Result Lauren Tripathi MD LAB - BEAKER POCT LABORATORY [facility] [address] Lab (1st floor, no room number) [place] [phone], [facility] * Glucose by meter (03/04/2024 1:46 PM CDT) GLUCOSE BY METER POCT 86 70 - 99 mg/dL 03/04/2024 1:53 PM CDT LABORATORY POC Blood, Capillary BLOOD SPECIMEN / Unknown 03/04/2024 1:46 PM CDT 03/04/2024 1:53 PM CDT Ron DEAN - BEXIANG POCT Performing Organization Address [facility]/ZIP Co de Phone Number LABORATORY [facility] [address] Lab (1st floor, no room number) [place] [address], [facility] * (ABNORMAL) Glucose by meter (03/04/2024 1:09 PM CDT) GLUCOSE BY METER POCT 67(L) 70 - 99 mg/dL 03/04/2024 1:15 PM CDT LABORATORY POC Blood, Capillary BLOOD SPECIMEN / Unknown 03/04/2024 1:09 PM CDT 03/04/2024 1:15 PM CDT Ron Tripathi MD LAB - BEAKER POCT Performing Organization Address [facility]/ZIP Co de Phone Number LABORATORY [facility] [address] Lab (1st floor, no room number) [place] [phone], [facility] * (ABNORMAL) Glucose by meter (03/04/2024 11:59 AM CDT) GLUCOSE BY METER POCT 69(L) 70 - 99 mg/dL 03/04/2024 12:06 PM CDT LABORATORY POC Blood, Capillary BLOOD SPECIMEN / Unknown 03/04/2024 11:59 AM CDT 03/04/2024 12:06 PM CDT Narrative Authorizing Provider Result Lauren Tripathi MD LAB - BEAKER POCT LABORATORY [facility] [address] Lab (1st floor, no room number) [place] [phone], [facility] * Glucose by meter (03/04/2024 10:47 AM CDT) GLUCOSE BY METER POCT 74 70 - 99 mg/dL 03/04/2024 11:06 AM CDT LABORATORY POC Blood, Capillary BLOOD SPECIMEN / Unknown 03/04/2024 10:47 AM CDT 03/04/2024 11:06 AM CDT Ron DEAN - BEAKER POCT LABORATORY [facility] [address] Lab (1st floor, no room number) [place] [phone], [facility] * Glucose by meter (03/04/2024 8:58 AM CDT) GLUCOSE BY METER POCT 81 70 - 99 mg/dL 03/04/2024 9:06 AM CDT LABORATORY POC Blood, Capillary BLOOD SPECIMEN / Unknown 03/04/2024 8:58 AM CDT 03/04/2024 9:06 AM CDT Ron Tripathi MD LAB - BEAKER POCT LABORATORY [facility] [address] Lab (1st floor, no room number) [place] [address], [facility] * Glucose by meter (03/04/2024 7:03 AM CDT) GLUCOSE BY METER POCT 76 70 - 99 mg/dL 03/04/2024 7:10 AM CDT RH LABORATORY POC Blood, Capillary BLOOD SPECIMEN / Unknown 03/04/2024 7:03 AM CDT 03/04/2024 7:10 AM CDT Ron Tripathi MD LAB - BEAKER POCT RH LABORATORY POC [facility] [address] Lab (1st floor, no room number) [place] [address], [facility] * (ABNORMAL) Comprehensive metabolic panel (03/04/2024 6:45 AM CDT) Pathologist [facility] Sodium 125(L) 135 - 145 mmol/L 03/04/2024 [...] - 23.0 mg/dL 03/04/2024 8:11 AM CDT [facility] LABORATORY Creatinine 7.41(H) 0.67 - 1.17 mg/dL 03/04/2024 8:11 AM CDT LABORATORY GFR Estimate 8(L) >60 mL/min/1. 73m2 03/04/2024 8:11 AM CDT RH LABORATORY Calcium 8.2(L) 8.8 - 10.2 mg/dL [...] LAB - BLOOD ORDER NADIA [facility] LABORATORY [facility] [address] Lab (1st floor, no room number) [place] [address], [facility] * (ABNORMAL) CBC with platelets (03/04/2024 [...] Romero DO LAB - BLOOD ORDER NADIA [facility] [address] Lab (1st floor, no room number) [address] [place] [address] * (ABNORMAL) Hemoglobin (03/04/2024 6:45 AM CDT) Hemoglobin 7.1(L) 13.3 - 17.7 g/dL 03/04/2024 6:57 AM CDT RH LABORATORY Blood STRUCTURE OF RIGHT UPPER LIMB / Unknown Venipuncture / Unknown 03/04/2024 6:45 AM CDT 03/04/2024 6:54 AM CDT Ron Tripathi MD LAB - BLOOD ORDERABL ES [facility] [address] Lab (1st floor, no room number) [place] [phone] * Cortisol (03/04/2024 6:45 AM CDT) [...] DO LAB - BLOOD ORDER NADIA LABORATORY [facility] [address] [facility], [address] [place] [address] * Glucose by meter (03/04/2024 5:08 AM CDT) GLUCOSE BY METER POCT 93 70 - 99 mg/dL 03/04/2024 5:15 AM CDT LABORATORY POC Blood, Capillary BLOOD SPECIMEN / Unknown 03/04/2024 5:08 AM CDT 03/04/2024 5:15 AM CDT Ron HERNANDEZ POCT LABORATORY POC [facility] [address] [facility] Lab (1st floor, no room number) [place] [address] * (ABNORMAL) Glucose by meter (03/04/2024 3:28 AM CDT) GLUCOSE BY METER POCT 116(H) 70 - 99 mg/dL 03/04/2024 3:36 AM CDT LABORATORY POC Blood, Capillary BLOOD SPECIMEN / Unknown 03/04/2024 3:28 AM CDT 03/04/2024 3:36 AM CDT Ron Biala MD LAB - BEAKER POCT Performing Organization Address [facility]/ZIP Co de Phone Number LABORATORY [facility] [address] Lab (1st floor, no room number) [place] [address] * Glucose by meter (03/04/2024 2:12 AM CDT) GLUCOSE BY METER POCT 77 70 - 99 mg/dL 03/04/2024 2:20 AM CDT [facility] LABORATORY POC Comment:Dr/RN Notified Blood, Capillary BLOOD SPECIMEN / Unknown 03/04/2024 2:12 AM CDT 03/04/2024 2:20 AM CDT Ron DEAN - BEAKER POCT Performing Organization Address City/[facility]/ZIP Co de Phone Number LABORATORY [facility] [address] Lab (1st floor, no room number) [place] [address] * Glucose by meter (03/04/2024 12:25 AM CDT) GLUCOSE BY METER POCT 96 70 - 99 mg/dL 03/04/2024 12:32 AM CDT LABORATORY POC Blood, Capillary BLOOD SPECIMEN / Unknown 03/04/2024 12:25 AM CDT 03/04/2024 12:32 AM CDT Ron DEAN - BEAKER POCT Performing Organization Address City/[facility]/ZIP Co de Phone Number LABORATORY [facility] [address] Lab (1st floor, no room number) [place] [address] * (ABNORMAL) Hemoglobin (03/03/2024 9:40 PM CDT) Hemoglobin 7.2(L) 13.3 - 17.7 g/dL 03/03/2024 9:53 PM CDT RH LABORATORY Blood STRUCTURE OF RIGHT UPPER LIMB / Unknown Venipuncture / Unknown 03/03/2024 9:40 PM CDT 03/03/2024 9:50 PM CDT Narrative Authorizing Provider Result Lauren Tripathi MD LAB - BLOOD ORDERABL ES Performing Organization Address [facility]/ZIP Co de Phone Number [facility] [address] Lab (1st floor, no room number) [address] [place] [address] * (ABNORMAL) Glucose by meter (03/03/2024 8:13 PM CDT) GLUCOSE BY METER POCT 144(H) 70 - 99 mg/dL 03/03/2024 8:20 PM CDT RH LABORATORY POC Blood, Capillary BLOOD SPECIMEN / Unknown 03/03/2024 8:13 PM CDT 03/03/2024 8:20 PM CDT Narrative Authorizing Provider Result Lauren Tripathi MD LAB - BEAKER POCT Performing Organization Address [facility]/ZIP Co de Phone Number LABORATORY [facility] [address] Lab (1st floor, no room number) [place] [phone] * (ABNORMAL) Glucose by meter (03/03/2024 6:23 PM CDT) GLUCOSE BY METER POCT 110(H) 70 - 99 mg/dL 03/03/2024 6:29 PM CDT LABORATORY POC Blood, Capillary BLOOD SPECIMEN / Unknown 03/03/2024 6:23 PM CDT 03/03/2024 6:29 PM CDT Narrative Authorizing Provider Result Lauren DEAN - BEAKER POCT Performing Organization Address City/[facility]/ZIP Co de Phone Number LABORATORY [facility] [address] Lab (1st floor, no room number) [address] * (ABNORMAL) Glucose by meter (03/03/2024 5:39 PM CDT) GLUCOSE BY METER POCT 57(L) 70 - 99 mg/dL 03/03/2024 5:45 PM CDT RH LABORATORY POC Blood, Capillary BLOOD SPECIMEN / Unknown 03/03/2024 5:39 PM CDT 03/03/2024 5:45 PM CDT Narrative Authorizing Provider Result Lauren DEAN - BEAKER POCT Performing Organization Address [facility]/State/ZIP Co de Phone Number LABORATORY [facility] [address] Lab (1st floor, no room number) [place] [address], [facility] * (ABNORMAL) Glucose by meter (03/03/2024 5:11 PM CDT) GLUCOSE BY METER POCT 64(L) 70 - 99 mg/dL 03/03/2024 5:18 PM CDT LABORATORY POC Blood, Capillary BLOOD SPECIMEN / Unknown 03/03/2024 5:11 PM CDT 03/03/2024 5:18 PM CDT Narrative Authorizing Provider Result Lauren Tripathi MD LAB - BEXIANG POCT Performing Organization Address [facility]/ZIP Co de Phone Number LABORATORY [facility] [address] Lab (1st floor, no room number) [place] [address], [facility] * (ABNORMAL) Glucose by meter (03/03/2024 4:39 PM CDT) GLUCOSE BY METER POCT 55(L) 70 - 99 mg/dL 03/03/2024 4:46 PM CDT LABORATORY POC Blood, Capillary BLOOD SPECIMEN / Unknown 03/03/2024 4:39 PM CDT 03/03/2024 4:46 PM CDT Narrative Authorizing Provider Result Lauren DEAN - BEXIANG POCT Performing Organization Address [facility]/ZIP Co de Phone Number LABORATORY [facility] [address] Lab (1st floor, no room number) [place] [address], [facility] * (ABNORMAL) Glucose by meter (03/03/2024 4:17 PM CDT) GLUCOSE BY METER POCT 65(L) 70 - 99 mg/dL 03/03/2024 4:25 PM CDT RH LABORATORY POC Blood, Capillary BLOOD SPECIMEN / Unknown 03/03/2024 4:17 PM CDT 03/03/2024 4:25 PM CDT Narrative Authorizing Provider Result Lauren Tripathi MD LAB - BEAKER POCT LABORATORY [facility] [address] Lab (1st floor, no room number) [place] [phone] [place] [address] * (ABNORMAL) Glucose by meter (03/03/2024 2:11 PM CDT) GLUCOSE BY METER POCT 65(L) 70 - 99 mg/dL 03/03/2024 2:17 PM CDT LABORATORY POC Blood, Capillary BLOOD SPECIMEN / Unknown 03/03/2024 2:11 PM CDT 03/03/2024 2:17 PM CDT Narrative Authorizing Provider Result Lauren DEAN - BEAKER POCT Performing Organization Address City/[facility]/ZIP Co de Phone Number LABORATORY [facility] [address] Lab (1st floor, no room number) [place] [phone] [place] [address] * (ABNORMAL) Hemoglobin (03/03/2024 2:07 PM CDT) Hemoglobin 7.6(L) 13.3 - 17.7 g/dL 03/03/2024 2:13 PM CDT RH LABORATORY Blood STRUCTURE OF RIGHT UPPER LIMB / Unknown Venipuncture / Unknown 03/03/2024 2:07 PM CDT 03/03/2024 2:10 PM CDT Narrative Authorizing Provider Result Lauren Tripathi MD LAB - BLOOD ORDERABL ES [facility] [address] Lab (1st floor, no room number) [place] [phone], [facility] * (ABNORMAL) Glucose by meter (03/03/2024 11:59 AM CDT) GLUCOSE BY METER POCT 152(H) 70 - 99 mg/dL 03/03/2024 2:15 PM CDT RH LABORATORY POC Blood, Capillary BLOOD SPECIMEN / Unknown 03/03/2024 11:59 AM CDT 03/03/2024 2:15 PM CDT Ron Tripathi MD LAB - BEAKER POCT LABORATORY [facility] [address] Lab (1st floor, no room number) [address] [place] [address] * Glucose by meter (03/03/2024 11:36 AM CDT) GLUCOSE BY METER POCT 80 70 - 99 mg/dL 03/03/2024 2:14 PM CDT LABORATORY POC Blood, Capillary BLOOD SPECIMEN / Unknown 03/03/2024 11:36 AM CDT 03/03/2024 2:14 PM CDT Narrative Authorizing Provider Result Lauren Tripathi MD LAB - BEXIANG POCT Performing Organization Address [facility]/ZIP Co de Phone Number LABORATORY [facility] [address] Lab (1st floor, no room number) [place] [phone] [place] [address] * (ABNORMAL) Glucose by meter (03/03/2024 11:14 AM CDT) GLUCOSE BY METER POCT 39(LL) 70 - 99 mg/dL 03/03/2024 2:14 PM CDT RH LABORATORY POC Comment:Dr/RN Notified Blood, Capillary BLOOD SPECIMEN / Unknown 03/03/2024 11:14 AM CDT 03/03/2024 2:14 PM CDT Ron Tripathi MD LAB - BEAKER POCT LABORATORY [facility] [address] Lab (1st floor, no room number) [place] [phone] [place] [address] * Glucose by meter (03/03/2024 10:51 AM CDT) GLUCOSE BY METER POCT 79 70 - 99 mg/dL 03/03/2024 10:58 AM CDT LABORATORY POC Blood, Capillary BLOOD SPECIMEN / Unknown 03/03/2024 10:51 AM CDT 03/03/2024 10:58 AM CDT Narrative Authorizing Provider Result Lauren Tripathi MD LAB - BEAKER POCT LABORATORY [facility] [address] Lab (1st floor, no room number) [address] [place] [address] * (ABNORMAL) Glucose by meter (03/03/2024 10:30 AM CDT) GLUCOSE BY METER POCT 56(L) 70 - 99 mg/dL 03/03/2024 10:37 AM CDT LABORATORY POC Blood, Capillary BLOOD SPECIMEN / Unknown 03/03/2024 10:30 AM CDT 03/03/2024 10:37 AM CDT Narrative Authorizing Provider Result Lauren DEAN - BEAKER POCT Performing Organization Address [facility]/ZIP Co de Phone Number LABORATORY [facility] [address] Lab (1st floor, no room number) [address] * (ABNORMAL) Hemoglobin (03/03/2024 6:10 AM CDT) Hemoglobin 7.1(L) 13.3 - 17.7 g/dL 03/03/2024 6:27 AM CDT LABORATORY Blood STRUCTURE OF RIGHT UPPER LIMB / Unknown Venipuncture / Unknown 03/03/2024 6:10 AM CDT 03/03/2024 6:25 AM CDT Narrative Authorizing Provider Result Lauren Tripathi MD LAB - BLOOD ORDERABL ES LABORATORY [facility] [address] Lab (1st floor, no room number) [place] [address] * (ABNORMAL) INR (03/03/2024 6:10 AM CDT) INR 2.23(H) 0.85 - 1.15 03/03/2024 6:46 AM CDT RH LABORATORY Blood STRUCTURE OF RIGHT UPPER LIMB / Unknown Venipuncture / Unknown 03/03/2024 6:10 AM CDT 03/03/2024 6:25 AM CDT Ron Tripathi MD LAB - BLOOD ORDERABL ES Performing Organization Address [facility]/ZIP Co de Phone Number LABORATORY [facility] [address] Lab (1st floor, no room number) [place] [phone] * (ABNORMAL) CBC with platelets (03/03/2024 [...] MD LAB - BLOOD ORDERABL ES LABORATORY [facility] [address] [facility] Lab (1st floor, no room number) [place] [address] * (ABNORMAL) Basic metabolic panel (03/03/2024 [...] - BLOOD ORDERABL ES Performing Organization Address City/[facility]/ZIP Co de Phone Number [facility] [address] Lab (1st floor, no room number) [place] [address], [place] * (ABNORMAL) Glucose by meter (03/03/2024 5:27 AM CDT) GLUCOSE BY METER POCT 135(H) 70 - 99 mg/dL 03/03/2024 5:34 AM CDT LABORATORY POC Blood, Capillary BLOOD SPECIMEN / Unknown 03/03/2024 5:27 AM CDT 03/03/2024 5:34 AM CDT Narrative Authorizing Provider Result Lauren DEAN - BEAKER POCT Performing Organization Address [facility]/ZIP Co de Phone Number LABORATORY [facility] [address] Lab (1st floor, no room number) [place] [address], [facility] * Glucose by meter (03/03/2024 4:16 AM CDT) GLUCOSE BY METER POCT 71 70 - 99 mg/dL 03/03/2024 4:23 AM CDT LABORATORY POC Blood, Capillary BLOOD SPECIMEN / Unknown 03/03/2024 4:16 AM CDT 03/03/2024 4:23 AM CDT Narrative Authorizing Provider Result Lauren DEAN - BEAKER POCT LABORATORY [facility] [address] Lab (1st floor, no room number) [place] [address], [facility] * Glucose by meter (03/03/2024 2:40 AM CDT) GLUCOSE BY METER POCT 91 70 - 99 mg/dL 03/03/2024 2:46 AM CDT RH LABORATORY POC Blood, Capillary BLOOD SPECIMEN / Unknown 03/03/2024 2:40 AM CDT 03/03/2024 2:46 AM CDT Ron Tripathi MD LAB - BEAKER POCT LABORATORY [facility] [address] Lab (1st floor, no room number) [address] * CONDITIONAL Transfuse red blood cells [...] DEAN - DAVID POCT Performing Organization Address [facility]/ZIP Co de Phone Number LABORATORY [facility] [address] Lab (1st floor, no room number) [address] * Glucose by meter (03/03/2024 12:34 AM CDT) GLUCOSE BY METER POCT 74 70 - 99 mg/dL 03/03/2024 12:40 AM CDT RH LABORATORY POC Blood, Capillary BLOOD SPECIMEN / Unknown 03/03/2024 12:34 AM CDT 03/03/2024 12:40 AM CDT Ron DEAN - BEXIANG POCT LABORATORY [facility] [address] Lab (1st floor, no room number) [place] [phone] * Transfuse red blood cells [...] - BLOOD ORDERABL ES Performing Organization Address City/[facility]/ZIP Co de Phone Number [facility] [address] Lab (1st floor, no room number) [place] [phone] [place] [address] * (ABNORMAL) Glucose by meter (03/02/2024 9:34 PM CDT) GLUCOSE BY METER POCT 126(H) 70 - 99 mg/dL 03/02/2024 10:03 PM CDT RH LABORATORY POC Blood, Capillary BLOOD SPECIMEN / Unknown 03/02/2024 9:34 PM CDT 03/02/2024 10:03 PM CDT Ron Tripathi MD LAB - BEAKER POCT LABORATORY POC [facility] [address] Lab (1st floor, no room number) [place] [phone] * (ABNORMAL) Glucose by meter (03/02/2024 9:01 PM CDT) GLUCOSE BY METER POCT 136(H) 70 - 99 mg/dL 03/02/2024 9:11 PM CDT RH LABORATORY POC Blood, Capillary BLOOD SPECIMEN / Unknown 03/02/2024 9:01 PM CDT 03/02/2024 9:11 PM CDT Narrative Authorizing Provider Result Lauren Tripathi MD LAB - BEAKER POCT Performing Organization Address [facility]/ZIP Co de Phone Number LABORATORY [facility] [address] Lab (1st floor, no room number) [place] [address], [place] * (ABNORMAL) Glucose by meter (03/02/2024 8:26 PM CDT) GLUCOSE BY METER POCT 65(L) 70 - 99 mg/dL 03/02/2024 8:34 PM CDT LABORATORY POC Blood, Capillary BLOOD SPECIMEN / Unknown 03/02/2024 8:26 PM CDT 03/02/2024 8:34 PM CDT Ron Tripathi MD LAB - BEAKER POCT Performing Organization Address [facility]/ZIP Co de Phone Number LABORATORY [facility] [address] Lab (1st floor, no room number) [place] [address], [facility] * (ABNORMAL) Glucose by meter (03/02/2024 8:01 PM CDT) GLUCOSE BY METER POCT 54(L) 70 - 99 mg/dL 03/02/2024 8:27 PM CDT LABORATORY POC Blood, Capillary BLOOD SPECIMEN / Unknown 03/02/2024 8:01 PM CDT 03/02/2024 8:27 PM CDT Narrative Authorizing Provider Result Lauren Tripathi MD LAB - BEAKER POCT Performing Organization Address City/[facility]/ZIP Co de Phone Number LABORATORY [facility] [address] Lab (1st floor, no room number) [place] [address], [facility] * (ABNORMAL) Glucose by meter (03/02/2024 7:45 PM CDT) GLUCOSE BY METER POCT 41(LL) 70 - 99 mg/dL 03/02/2024 7:55 PM CDT RH LABORATORY POC Blood, Capillary BLOOD SPECIMEN / Unknown 03/02/2024 7:45 PM CDT 03/02/2024 7:55 PM CDT Ron Tripathi MD LAB - BEAKER POCT RH LABORATORY POC [facility] [address] Lab (1st floor, no room number) [place] [phone] [place] [address] * (ABNORMAL) Ammonia (on ice) (03/02/2024 3:55 PM CDT) Ammonia <10(L) 16 - 60 umol/L 03/02/2024 4:21 PM CDT RH LABORATORY Blood STRUCTURE OF RIGHT UPPER LIMB / Unknown Venipuncture / Unknown 03/02/2024 3:55 PM CDT 03/02/2024 3:57 PM CDT Raúl Bernard MD LAB - BLOOD ORDERABL ES Performing Organization Address [facility]/ZIP Co de Phone Number LABORATORY [facility] [address] Lab (1st floor, no room number) [address] [place] [address] * Prepare red blood cells (unit) (03/02/2024 3:29 PM CDT) Blood Component Type Red Blood Cells RH BLOOD BANK Product Code [id number] RH BLOO D BANK Unit Status Transfused RH BLOO D BANK Unit Number [id number] RH B LOOD BANK CROSSMATCH Compatible RH BLOOD BANK CODING SYSTEM [id number] RH BLO OD BANK ISSUE DATE AND TIME [id number] RH BLOOD BANK UNIT ABO/RH O+ RH BLOOD BANK UNIT TYPE ISBT 5100 RH BL OOD BANK 03/02/2024 3:29 PM CDT Raúl Bernard MD BLOOD BANK PRODUCT O RDERABLES RH BLOOD BANK [address] [place] [phone] [place] [address] * Prepare red blood cells (unit) (03/02/2024 3:29 PM CDT) Blood Component Type Red Blood Cells RH BLOOD BANK Product Code [id number] RH BLOO D BANK Unit Status Transfused RH BLOO D BANK Unit Number [id number] RH B LOOD BANK CROSSMATCH Compatible RH BLOOD BANK CODING SYSTEM [id number] RH BLO OD BANK ISSUE DATE AND TIME [id number] RH BLOOD BANK UNIT ABO/RH O+ RH BLOOD BANK UNIT TYPE ISBT 5100 RH BL OOD BANK 03/02/2024 3:29 PM CDT Raúl Bernard MD BLOOD BANK PRODUCT O RDERABLES RH BLOOD BANK [address] [place] [address] * EKG 12-lead, tracing only (03/02/2024 2:00 PM CDT) Systolic Blood Pressure mmHg RADIOLOGY RESULTS Diastolic Blood Pressure mmHg RADIOLOGY RESULTS Ventricular Rate 82 BPM RAD IOLOGY RESULTS Atrial Rate 82 BPM RADIOLOG Y RESULTS TN Interval 210 ms RADIOLOG Y RESULTS QRS Duration 88 ms RADIOLO GY RESULTS QT 382 ms RADIOLOGY RESULTS QTc 446 ms RADIOLOGY RESULTS P [place] 45 degrees RADIOLOGY RESULTS R AXIS -7 degrees RADIOLOGY RESULTS T [place] 24 degrees RADIOLOGY RESULTS Interpretation ECG Sinus rhythm with 1st degree A-V block Inferior infarct , age undetermined Abnormal ECG When compared with ECG of 24-FEB-2024 10:12, No significant change was found Unconfirmed report - interpretation of this ECG is computer generated - see medical record for final interpretation Confirmed by - EMERGENCY ROOM, PHYSICIAN ([id number]), editorial project manager YISSEL VELASQUEZ ([id number]) on 03/02/2024 3:43:16 PM RADIOLOGY RESULTS 03/02/2024 [...] the Xpert Xpress CoV2/Flu/RSV Assay on the [employer] GeneXpert Instrument. This test should be ordered [...] management. This test was validated by the [facility]. These laboratories are certified under the Clinical Laboratory Improvement Amendments of 1988 (CLIA-88) as qualified to perform high complexity laboratory testing. Raúl Bernard MD LAB - MICRO GENERAL ORDERABLES [facility] [address] [facility] Lab (1st floor, no room number) [place] [address], [facility] * Hemoglobin A1c (03/02/2024 1:56 PM CDT) Pathologist [facility] Hemoglobin A1C 5.5 <5.7 % 03/02/2024 7:31 PM CDT [facility] Comment: Normal <5.7% Prediabetes 5.7-6.4% ?? Diabetes 6.5% or higher Note: Adopted from ADA consensus guidelines. Blood BLOOD SPECIMEN / Unknown Venipuncture / Unknown 03/02/2024 1:56 PM CDT 03/02/2024 2:15 PM CDT Ron Tripathi MD LAB - BLOOD ORDERABL [facility] [address] [facility] (1st floor, no room number) [place] [address] * Adult Type and Screen (03/02/2024 1:56 PM CDT) ABO/RH(D) O POS 03/02/2024 2:59 PM CDT [facility] Antibody Screen Negative Negative 03/02/2024 2:59 PM CDT [facility] SPECIMEN EXPIRATION DATE [id number] 03/02/2024 2:59 PM CDT [facility] Blood BLOOD SPECIMEN / Unknown Venipuncture / Unknown 03/02/2024 1:56 PM CDT 03/02/2024 2:15 PM CDT Raúl Bernard MD LAB - BLOOD BANK SHANNON T ORDER Performing Organization Address City/[facility]/ZIP Co de Phone Number RH BLOOD BANK [address] [place] [address] * (ABNORMAL) CBC with platelets and [...] - BLOOD ORDERABL ES Performing Organization Address [facility]/ZIP Co de Phone Number LABORATORY [facility] [address] Lab (1st floor, no room number) [address] * (ABNORMAL) INR (03/02/2024 1:56 PM CDT) INR 2.09(H) 0.85 - 1.15 03/02/2024 3:14 PM CDT RH LABORATORY Blood BLOOD SPECIMEN / Unknown Venipuncture / Unknown 03/02/2024 1:56 PM CDT 03/02/2024 2:15 PM CDT Raúl Bernard MD LAB - BLOOD ORDERABL ES Performing Organization Address [facility]/ZIP Co de Phone Number LABORATORY [facility] [address] Lab (1st floor, no room number) [address] * (ABNORMAL) Comprehensive metabolic panel (03/02/2024 [...] - 5.3 mmol/L 03/02/2024 3:31 PM CDT LABORATORY Carbon Dioxide (CO2) 27 22 [...] - BLOOD ORDERABL ES Performing Organization Address [facility]/ZIP Co de Phone Number [facility] [address] Lab (1st floor, no room number) [place] [phone] [place] [address] * Extra Heparinized Syringe (03/02/2024 1:56 PM CDT) Hold Specimen [facility] 03/02/2024 3:17 PM CDT RH LABORATORY Blood, venous BLOOD SPECIMEN / Unknown Venipuncture / Unknown 03/02/2024 1:56 PM CDT 03/02/2024 2:14 PM CDT Raúl Bernard MD LAB - BLOOD ORDERABL ES Performing Organization Address [facility]/ZIP Co de Phone Number [facility] [address] Lab (1st floor, no room number) [place] [phone] * Extra Blood Bank Purple Top Tube (03/02/2024 1:56 PM CDT) Hold Specimen [facility] 03/02/2024 3:17 PM CDT RH LABORATORY Blood BLOOD SPECIMEN / Unknown Venipuncture / Unknown 03/02/2024 1:56 PM CDT 03/02/2024 2:15 PM CDT Raúl Bernard MD LAB - BLOOD ORDERABL ES Performing Organization Address [facility]/ZIP Co de Phone Number [facility] [address] Lab (1st floor, no room number) [place] [phone] * Extra Blood Bank Purple Top Tube (03/02/2024 1:56 PM CDT) Hold Specimen [facility] 03/02/2024 3:17 PM CDT RH LABORATORY Blood BLOOD SPECIMEN / Unknown Venipuncture / Unknown 03/02/2024 1:56 PM CDT 03/02/2024 2:15 PM CDT Raúl Bernard MD LAB - BLOOD ORDERABL ES [facility] [address] Lab (1st floor, no room number) [place] [address] * Extra Purple Top Tube (03/02/2024 1:56 PM CDT) Hold Specimen [facility] 03/02/2024 3:17 PM CDT RH LABORATORY Blood BLOOD SPECIMEN / Unknown Venipuncture / Unknown 03/02/2024 1:56 PM CDT 03/02/2024 2:15 PM CDT Raúl Bernard MD LAB - BLOOD ORDERABL ES Performing Organization Address [facility] Co de Phone Number [facility] [address] Lab (1st floor, no room number) [place] [address] * Extra Green Top ([place] Heparin) Tube (03/02/2024 1:56 PM CDT) Hold Specimen [facility] 03/02/2024 3:17 PM CDT RH LABORATORY Blood BLOOD SPECIMEN / Unknown Venipuncture / Unknown 03/02/2024 1:56 PM CDT 03/02/2024 2:15 PM CDT Raúl Bernard MD LAB - BLOOD ORDERABL ES Performing Organization Address [facility]/ZIP Co de Phone Number [facility] [address] Lab (1st floor, no room number) [place] [address] * Extra Red Top Tube (03/02/2024 1:56 PM CDT) Hold Specimen [facility] 03/02/2024 3:17 PM CDT RH LABORATORY Blood BLOOD SPECIMEN / Unknown Venipuncture / Unknown 03/02/2024 1:56 PM CDT 03/02/2024 2:15 PM CDT Raúl Bernard MD LAB - BLOOD ORDERABL ES [facility] [address] Lab (1st floor, no room number) [place] [address], [facility] * Extra Blue Top Tube (03/02/2024 1:56 PM CDT) Hold Specimen JI 03/02/2024 3:17 PM CDT LABORATORY Blood BLOOD SPECIMEN / Unknown Venipuncture / Unknown 03/02/2024 1:56 PM CDT 03/02/2024 2:15 PM CDT Raúl Bernard MD LAB - BLOOD ORDERABL ES [facility] Lab [address] Lab (1st floor, no room number) [place] [address], [facility] documented in this encounter Visit Diagnoses Diagnosis Hypoglycemia- Primary Hypoglycemia, unspecified Anemia, unspecified type Black stool Nonspecific abnormal finding in stool contents Gastrointestinal hemorrhage, unspecified gastrointestinal hemorrhage type Black stool Nonspecific abnormal finding in stool contents Anemia, unspecified type Anemia, unspecified type Gastrointestinal hemorrhage, unspecified gastrointestinal hemorrhage type documented in this encounter Administered Medications [...] mg, Oral, EVERY MORNING, First dose on Tue03/03/24 at 0900 $Given 03/12/2024 2:02 PM CDT [...] reversal, Starting on Tue03/02/24 at 1921, Administer intravenous route when available and notify [...] Bag 03/06/2024 12:52 PM CDT 10 mL/hr sterile water (bottle) irrigation PRN, Intra-procedure, Starting on Tue03/06/24 at 1421, Until Tue03/06/24 at 1552 $Given 03/06/2024 2:21 PM CDT 250 mLs Operative Site/Surgical Site warfarin ANTICOAGULANT (COUMADIN) tablet 7.5 mg 7.5 [...] INSTRUCTIONS, Starting on 03/03/24 at 1048, Until Tue03/12/24 at 1836, Do not give any medication [...] MEALS, First dose (after last modification) on Tue03/10/24 at 0900, Correction Scale - LOW INSULIN [...] mg, Oral, EVERY MORNING, First dose on Tue03/03/24 at 0900 0902 ($Given - Provider: Raul [...] circuit., Dialysis 1157 ($Given - Provider: Melissa Drake, LINDA) pantoprazole (PROTONIX) EC tablet 40 mg 40 mg, Oral, 2 TIMES DAILY BEFORE MEALS, First dose on 03/04/24 at 1630, DO NOT CRUSH. 0902 ($Given [...] RN) 0815 ($Given - Provider: Fern Soliz RN) sodium chloride (PF) 0.9% PF flush 10 [...] post blood draw 1157 ($Given - Provi norha: Melissa Drake RN) sodium chloride (PF) 0.9% [...] stools. documented in this encounter Care Teams Enterostomal Therapy Nurse Relationship Specialty Start Date End Date Cornell Butt PCP - General 06/24/11 documented as of this encounter
--- OUTSIDE RECORDS SUMMARY | 2024-05-24 23:49 | XMS_ITS | Encounter Summary ---
Author Organization [facility] Address [address] [place] [address] Care Team Providers Care Rn Practitioner Name Role Phone Preet Huff Primary Care Provider [phone] Reason for Visit * Reason Comments Altered [...] type Rh 3 Medical Surgical [address] [place] [address] Referral ID Status Reason Start Date Expiration Date Visits Re quested Visits Authorized [id number] 1 1 Encounter Details Date Type Department Care Team (Late st Contact Info) Description 02/24/2024 9:38 AM CDT - 02/26/2024 3:30 PM CDT Hospital Encounter [facility] 3 Medical Surgical [address] [place] [address] Jae Noel MD [facility] [address] [place], [place] [id number] Georgia Perez DO [address], [place] [id number] Anemia, unspecified type; ESRD on dialysis (H); [...] file Gender Identity Male 12/05/2017 10:39 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 Patient wasseen at [facility] on 02/22 evening for concerns about [...] his mother and aunt who is his CUSTOMS OPENER VERIFIER PACKER. He is legally blind as well. Hx [...] minutes discharging this patient. Georgia Perez DO [address] SURGICAL [address] [facility] [address] Physical Exam Vital Signs: Temp: 97.6 ??F [...] is related to your kidney disease. Your experimental electronics developer will help with it. Follow-up and recommended [...] the vertex were obtained without intravenous contrast. Spring Repairer Helper Hand (topogram) image(s) also obtained and reviewed. Dose [...] volume loss. FLAKO ZUNIGA MD SYSTEM ID: [id number] CT Abdomen Pelvis w Contrast Narrative EXAM: [...] sent through Care Everywhere. * Esophageal Varices (Iraqi) documented in this encounter Medications at Time of Discharge Medication Sig Dispensed Refills Start Date End Date calcium acetate (PHOSLO) 667 MG CAPS capsule Take 1 capsule (667 mg)by mouth 3 times daily with meals calcium acetate (PHOSLO) 667 MG CAPS capsule Take 1 capsule (667 mg) once daily with a snack metoprolol tartrate (LOPRESSOR) 100 MG tablet Take 100 mg by mouth every evening warfarin ANTICOAGULANT (COUMADIN) 5 MG tablet Take 1 tablet (5 mg) by mouth Tuesday through Tuesday, no dose on Sat and Sun amLODIPine (NORVASC) 5 MG tablet Take 5 mg by mouth daily 05/23/2024 atorvastatin (LIPITOR) 20 MG tabletIndications:Mixed hyperlipidemia Take 1 tablet (20 mg) by mouth every evening 30 tablet 3 12/19/2017 05/23/2024 BISACODYL PO Take 10 mg by mouth every other day 03/02/2024 lisinopril (ZESTRIL) 40 MG tablet Take 20 mg by mouth every evening 03/02/2024 documented as of this encounter Progress Notes [...] mom (Arianna), aunt (Thelma) who is alsohis CUSTOMS OPENER VERIFIER PACKER, cousin (Aron) who is also his CUSTOMS OPENER VERIFIER PACKER, and another cousin (Javon). Patient reports there are no stairs at home. Self-Care Usual Activity Tolerance good Current Activity Tolerance moderate Equipment Currently Used at Home none Fall history within last six months no (Per patient) Activity/Exercise/Self-Care Comment Patient's family provides 10 hours of CUSTOMS OPENER VERIFIER PACKER services per day, cousin cares for patient [...] Evaluation Time PT Eval, Moderate Complexity Minutes (24608) 8 Physical Therapy Goals PT Frequency Daily PT Predicted Duration/Target Date for Goal Attainment 02/29/24 PT Goals Bed Mobility;Transfers;Gait PT: Bed Mobility Supine to/from sit;Rolling;Supervision/stand-by assist PT: Transfers Supervision/stand-by assist;Sit to/from stand;Bed to/from chair PT: Gait Supervision/stand-by assist;150 feet Interventions Interventions Quick Adds Therapeutic Activity Therapeutic Activity Therapeutic Activities: dynamic activities to improve functional performance Minutes (68335) 8 Symptoms Noted During/After Treatment Fatigue Treatment [...] lives with family, has 10 hours of CUSTOMS OPENER VERIFIER PACKER assist per day. Anticipate discharge home with family assisting. May benefit from home exercise program to address strength, balance, and endurance deficits. PT Brief overview of current status Ax1 Total Session Time Timed Code Treatment Minutes 8 Total Session Time (sum of timed and untimed services) 16 * Molly Simms RN - 02/25/2024 10:34 AM CDT Potassium [...] checked every 4 hours. Outpatient Dialysis at [facility] Patient weight shifting, unable to make large shifts due to AVF in thigh Post treatment report given to Andre Franklin RN, RN Please remove patient dressing on AVF and AVG needle sites 24 hours after dialysis. If leaking occurs please apply a Band-Aid. * Georgia Perez DO - 02/25/2024 9:[address] [facility] Medicine Progress Note - Hospitalist Service [...] Per his Aunt, patient was seen at [facility] on 02/22 evening for concerns about [...] his mother and aunt who is his CUSTOMS OPENER VERIFIER PACKER. He is legally blind as well. Hx [...] 2-4 Days Georgia Perez DO Hospitalist Service [facility] Securely message with Rapid Vocabulary (more info) Text page via [facility] Paging/Directory Interval History No acute overnight [...] End-stage renal disease: Chronic Tuesday dialysis at [facility] Html Web Developer: Dr. Holman Access: Left thigh AV graft, [...] evaluation ongoing, possible EGD Mann Brush DO [facility] consultants Office: [phone] Interval History: Patient seen during dialysis, admission [...] medications, labs and imaging. Mann Brush DO [facility] Consultants - Nephrology Office: [phone] * Mazin Srivastava MD - 02/24/2024 6:19 [...] Blackwood PA-C - 02/24/2024 12:[address] [facility] History and Physical - Hospitalist [...] Per his Aunt, patient was seen at [facility] on 02/22 evening for concerns about [...] his mother and aunt who is his CUSTOMS OPENER VERIFIER PACKER. He is legally blind as well. Hx [...] provider . GÓMEZ Blackwood PA-C Hospitalist Service [facility] Securely message with Rapid Vocabulary (more info) Text page via [facility] Paging/Directory Chief Complaint Dark stools History [...] Per his Aunt, patient was seen at [facility] on 02/22 evening for concerns about [...] Informant Patient Reported? Taking? AMLODIPINE BESYLATE PO Ed Educational Aide Yes No Sig: Take 10 mg by mouth four times a week On Non dialysis days which is MWFSun BISACODYL PO Ed Educational Aide Yes No Sig: Take 10 mg by mouth four times a week (Takes 2 x 5mg tablet = 10mg dose) Tuesday, Tuesday, Tuesday, and Tuesday Calcium Acetate, Phos Binder, (CALCIUM ACETATE PO) Ed Educational Aide Yes No Sig: Take 1,334 mg by mouth 3 times daily (with meals) Takes with meals (2 x 667mg tablet) Cholecalciferol (VITAMIN D3 PO) Ed Educational Aide Yes No Sig: Take 2,000 Units by mouth every evening LISINOPRIL PO Ed Educational Aide Yes No Sig: Take 40 mg by mouth daily (Takes 2 x 20mg tablet = 40mg ) METOPROLOL TARTRATE PO Ed Educational Aide Yes No Sig: Take 100 mg by [...] the vertex were obtained without intravenous contrast. Spring Repairer Helper Hand (topogram) image(s) also obtained and reviewed. Dose [...] volume loss. FLAKO ZUNIGA MD SYSTEM ID: [id number] Associated attestation - Georgia Perez DO - [...] Support: Care provided by: other (see comments) (CUSTOMS OPENER VERIFIER PACKER who is an aunt,Thelma and cousin Aron) Provides care for: no one, unable/limited ability to care for self Marital Status: Single CUSTOMS OPENER VERIFIER PACKER Description of Support System: Supportive, Involved Current Resources: Patient receiving home care services: No Community Resources: County Programs, County Worker, Dialysis Services, OP Dialysis, CUSTOMS OPENER VERIFIER PACKER, Transportation Services Equipment currently used at home: none Supplies currently used at home: Employment/Financial: Employment Status: unknown Financial Concerns: unknown Does the patient's insurance plan have a 3 day qualifying hospital stay waiver? No Lifestyle & Psychosocial Needs: Social Determinants of Health Food Insecurity: No Food Insecurity (06/23/2022) [facility] Food Insecurity Worried About Running Out of Food in the Last Year: 1 Depression: Not at risk (05/22/2020) [facility] PHQ-2 PHQ-2 Score: 0 Housing Stability: Low Risk (06/23/2022) Received from [facility] Housing Stability Unable to Pay for Housing in the Last Year: 1 Tobacco Use: Medium Risk (11/08/2023) Received from [facility] Patient History Smoking Tobacco Use: Never Smokeless Tobacco Use: Never Passive Exposure: Yes Financial Resource Strain: Low Risk (06/23/2022) Received from [facility] Financial Resource Strain Difficulty of Paying Living Expenses: 3 Difficulty of Paying Living Expenses: Not on file Alcohol Use: Not on file Transportation Needs: No Transportation Needs (06/23/2022) Received from [facility] Transportation Needs Lack of Transportation (Medical): 1 Physical Activity: Not on file Interpersonal Safety: Not on file Stress: Not on file Social Connections: Unknown (06/24/2023) Received from [facility] Social Connections Frequency of Communication with [...] No Current Concerns Values/Beliefs: Spiritual, Cultural Beliefs, Scientology Practices, Values that affect care: Additional Information: Chart reviewed. Emergency numbers listed on face sheet have been updated by [facility]. SW called and spokewith pt's aunt Thelma [phone] who reports pt lives with his mom Arianna, aunt Thelma who is also his CUSTOMS OPENER VERIFIER PACKER, cousin Aron who is also his CUSTOMS OPENER VERIFIER PACKER and another cousin Javon. They live in a house. Thelma reports Aron cares for pt Tue-Tue and she provides pt's care on Sundays, he receives 10 hrsof CUSTOMS OPENER VERIFIER PACKER services a day. She reports he is on a CADI Waiver. She reports he does not use any assistive devices. He gets dialysis on , W, F at [facility] [phone] and gets transportation there through [employer] [facility]. Plan: [facility] will continue to follow pt and assist with discharge planning. Katja Bronson MSW, [facility] Inpatient Care Coordination [facility] [phone] * Dinorah Allen APRN SENIOR CONTROLLER - 02/24/2024 2:34 PM CDTAssociated Order(s): GASTROENTEROLOGY IP CONSULT Images from the original note were not included. GASTROENTEROLOGY CONSULTATION Herminio Victor [address] [place] [id number] 58 year old male Admission Date/Time: 02/24/2024 Primary Care Provider: Huff, Preet L We were asked to see the patient [...] has had a colonoscopy or EGD before. [employer] medications reviewed which include omeprazole 20mg daily. [...] to person, tells me he is in [place], slow to respond PSYCH: [facility]: I [...] including patient evaluation, reviewing documentation/test results, and chromosomal disorders counselor. Thank you for asking us to participate in the care of this patient. Dinorah Allen, ADRIAN [facility] ([facility]) [phone] Associated attestation - Momo Hercules MD - [...] 12:59 PM CDTAssociated Order(s): NEPHROLOGY IP CONSULT [facility] Nephrology Consultation Date of Admission: 02/24/2024 Assessment & Plan Herminio Victor is a 58 year old male who was admitted on 02/24/2024. Assessment: 1) End-stage renal disease: Chronic Tuesday dialysis at [facility] Html Web Developer: Dr. Holman Access: Left thigh AV graft, [...] hospitalist DO [facility] [phone] Reason for Consult I was asked to see the patient for ESRD management History is obtained from the patient and chart review. History of Present Illness Herminio Victor is a 58 year old male who presents to the emergency room today with some concerns of anemia, GI bleeding. Also some agitation and altered mentation. Patient dialyzes Wednesdays and Fridays at [facility]. Found to have hemoglobin of 6.2 prompting [...] from dialysis unit, last visit by physician artificial fly tier on 02/13/2024. Past Medical History I have [...] Informant Patient Reported? Taking? AMLODIPINE BESYLATE PO Ed Educational Aide Yes No Sig: Take 10 mg by mouth four times a week On Non dialysis days which is MWFSun BISACODYL PO Ed Educational Aide Yes No Sig: Take 10 mg by mouth four times a week (Takes 2 x 5mg tablet = 10mg dose) Tuesday, Tuesday, Tuesday, and Tuesday Calcium Acetate, Phos Binder, (CALCIUM ACETATE PO) Ed Educational Aide Yes No Sig: Take 1,334 mg by mouth 3 times daily (with meals) Takes with meals (2 x 667mg tablet) Cholecalciferol (VITAMIN D3 PO) Ed Educational Aide Yes No Sig: Take 2,000 Units by mouth every evening LISINOPRIL PO Ed Educational Aide Yes No Sig: Take 40 mg by mouth daily (Takes 2 x 20mg tablet = 40mg ) METOPROLOL TARTRATE PO Ed Educational Aide Yes No Sig: Take 100 mg by [...] Hernandez RN - 02/24/2024 11:[address] [facility] ED Nurse Handoff Report ED [...] 2. Lift room needed: Yes. Bariatric: No Protective Clothing Issuer Needed: No Isolation: No. Infection: Not Applicable. [...] was sent here. He was seen at [facility] yesterday but nothing was found [...] Component Type Red Blood Cells Product Code L7338N44 Unit Status Not used Unit Number [id number] CROSSMATCH Compatible CODING SYSTEM [id number] UNIT ABO/RH O+ UNIT TYPE ISBT 5100 PREPARE RED BLOOD CELLS (UNIT) Blood Component Type Red Blood Cells Product Code E0694X47 Unit Status Ready for issue Unit Number [id number] CROSSMATCH Compatible CODING SYSTEM [id number] PREPARE RED BLOOD CELLS (UNIT) TRANSFUSE RED BLOOD CELLS (UNIT) ABO/RH TYPE AND SCREEN CT Head w/o Contrast Final Result IMPRESSION: 1. No acute intracranial pathology. 2. Chronic small vessel ischemic disease and generalized cerebral volume loss. FLAKO ZUNIGA MD SYSTEM ID: [id number] Treatments provided: See MAR Family Comments: NA [...] was sent here. He was seen at [facility] yesterday but nothing was found [...] with mom and his aunt is his CUSTOMS OPENER VERIFIER PACKER. Past Medical History Medical History and Problem [...] Component Type Red Blood Cells Product Code X2359Z73 Unit Status Not used Unit Number [id number] CROSSMATCH Compatible CODING SYSTEM [id number] UNIT ABO/RH O+ UNIT TYPE ISBT 5100 PREPARE RED BLOOD CELLS (UNIT) Blood Component Type Red Blood Cells Product Code F0041C88 Unit Status Transfused Unit Number [id number] CROSSMATCH Compatible CODING SYSTEM [id number] ISSUE DATE AND TIME [id number] UNIT ABO/RH O+ UNIT TYPE ISBT 5100 PREPARE RED BLOOD CELLS (UNIT) ABO/RH TYPE AND SCREEN Imaging CT Head w/o Contrast Final Result IMPRESSION: 1. No acute intracranial pathology. 2. Chronic small vessel ischemic disease and generalized cerebral volume loss. FLAKO ZUNIGA MD SYSTEM ID: [id number] EKG ECG taken at 1012, ECG read at 1020 Sinus rhythm with 1st degree AV block Otherwise normal ECG No change as compared to prior, dated 01/29/19. Rate 77 bpm. SC interval 210 ms. QRS duration 98 ms. [...] Procedures Discussion of Management Admitting Hospitalist, BESSIE Slaetr on behalf of Dr. Perez Social Determinants [...] regarding admission. Medical Decision Making / Diagnosis [facility] Diagnoses: None MIPS None MDM Herminio Victor is a 58 year old male with a complex past medical history pertinent for end-stage renal disease on dialysis, long-term anticoagulation use with Coumadin for prior history of DVT, intellectual disability, and long-term care needs assisted with his assistant buyer Aunt Thelma, who presents from dialysis due [...] Notes * Pharmacy-Anticoagulation Service - John Rosado, [facility] - 02/26/2024 3:30 PM CDT Images from the original note were not included. 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 INR Goal= 2-3 Warfarin [employer] Regimen: 5 mg M-F Anticoagulation Dose History [...] lives with family, has 10 hours of CUSTOMS OPENER VERIFIER PACKER assist per day. Anticipate discharge home with [...] Renal Function Recent Flowsheet Documentation Taken 02/26/2024 0831 by Adalgisa Amaya RN Medication Review/Management: medications [...] environment promoted Medication Review/Management: medications reviewed Taken 02/25/20242099 by Foreign Lozada RN Sensory [...] Documentation Taken 02/25/2024 1609 by Ramila Singh, dairy manufacturing technologist Interventions: care clustered essential oils Goal: Readiness [...] shift note. Outcome: Progressing Flowsheets (Taken 02/24/2024 9433) Outcome Evaluation: Hgb 6.7 at 1800 recheck. [...] Review/Management: medications reviewed * Provider Notification - aRmila Singh RN - 02/24/2024 9:13 PM CDT Shailesh HARPER for BP 87/33. Received Orders to transfuse 1 unit RBC. * Pharmacy-Admission Medication History - Axel Wiley - 02/24/2024 3:11 PM CDT Planer Operator / Grader Admission Medication History Admission medication history is complete. The information provided in this note is only as accurateas the sources available at the time of the update. Information Source(s): Family member and CareEverywhere/SureScripts via phone Pertinent Information: Medication list obtained from sister (Thelma) who handles his medications. Changes made to [employer] medication list: Added: Calcium Acetate (snack) Deleted: [...] Completed By: Axel Wiley 02/24/2024 3:11 PM [employer] Med List Medication Sig Last Dose amLODIPine [...] 7:30 PM CDT Medication history completed by on call pharmacy technician, reviewed by Zuleyka Hopkins, PharmD * [...] B Surface Antibody (02/26/2024 11:13 AM CDT) [facility] Hepatitis B Surface Antibody Reactive 02/26/2024 4:38 [...] LAB - BLOOD ORDER NADIA [facility] [place] [facility] [address] [facility], [address] [place] [address], [facility] * (ABNORMAL) INR (02/26/2024 9:49 AM CDT) INR 1.27(H) 0.85 - 1.15 02/26/2024 10:13 AM CDT [facility] Blood STRUCTURE OF RIGHT HAND / Unknown Venipuncture / Unknown 02/26/2024 9:49 AM CDT 02/26/2024 9:58 AM CDT Georgia Ana GILES LAB - BLOOD ORDER NADIA [facility] Acute Care Lab [address] Lab (1st floor, no room number) [place] [address] * (ABNORMAL) Renal panel (02/26/2024 6:10 [...] LAB - BLOOD ORDER NADIA [facility] Acute Care Lab [address] [facility] Lab (1st floor, no room number) [place] [address], [facility] * (ABNORMAL) CBC with platelets (02/26/2024 [...] LAB - BLOOD ORDER NADIA [facility] Acute Care Lab [address] Lab (1st floor, no room number) [place] [address] * (ABNORMAL) Ferritin (02/26/2024 6:10 AM CDT) Ferritin 1,463(H) 31 - 409 ng/mL 02/26/2024 12:37 PM CDT [facility] Blood STRUCTURE OF RIGHT HAND / Unknown Venipuncture / Unknown 02/26/2024 6:10 AM CDT 02/26/2024 6:20 AM CDT Momo Hercules MD LAB - BLOOD ORDERABL ES [facility] [place] [facility] [address] [facility], [address] [place] [address] * (ABNORMAL) Iron and iron [...] Hercules MD LAB - BLOOD ORDERABL ES [facility] Acute Care Lab [address] Lab (1st floor, no room number) [place] [address], [facility] * CT Abdomen Pelvis w [...] lytic changes involving the superior aspect of [id number] body (series 3, image 137) with some [...] 3:01 PM CDT) Upper GI Endoscopy [facility] Patient Name: Herminio Victor ? [...] ?Olympus Gastroscope, Model # [id number], Censitrac # [id number] was introduced through the mouth, and ?advanced [...] Note Initiated On: 02/25/2024 3:01 PM MRN: ?[id number] Procedure Date: ? 02/25/2024 3:01:34 PM Total [...] - BLOOD ORDERABL ES Performing Organization Address [facility]/ZIP Co de Phone Number [facility] Acute Care Lab [address] [facility] Lab (1st floor, no room number) [place] [address] * (ABNORMAL) INR (02/25/2024 9:28 AM CDT) INR 3.00(H) 0.85 - 1.15 02/25/2024 9:46 AM CDT [facility] Blood BLOOD SPECIMEN / Unknown Venipuncture / Unknown 02/25/2024 9:28 AM CDT 02/25/2024 9:32 AM CDT Georgia Perez DO LAB - BLOOD ORDER NADIA [facility] Acute Care Lab [address] Lab (1st floor, no room number) [place] [address] * Hepatitis B surface antigen (02/25/2024 6:45 AM CDT) Hepatitis B Surface Antigen Nonreactive Nonreactive 02/25/2024 10:36 AM CDT [facility] Blood STRUCTURE OF LEFT UPPER LIMB / Unknown Venipuncture / Unknown 02/25/2024 6:45 AM CDT 02/25/2024 6:51 AM CDT Mann Brush DO LAB - BLOOD ORDERABL ES [facility] LAB[facility] [place] [facility] [address] [facility], [address] [place] [address] * (ABNORMAL) Hemoglobin (02/25/2024 6:45 AM CDT) Pathologist [facility] Hemoglobin 7.8(L) 13.3 - 17.7 g/dL 02/25/2024 7:29 AM CDT LABORATORY Blood STRUCTURE OF LEFT UPPER LIMB / Unknown Venipuncture / Unknown 02/25/2024 6:45 AM CDT 02/25/2024 6:51 AM CDT Gómez Blackwood PA-C LAB - BLOOD ORDERABL ES LABORATORY [facility] Acute Care Lab [address] Lab (1st floor, no room number) [place] [address] * (ABNORMAL) CBC with platelets (02/25/2024 [...] LAB - BLOOD ORDERABL ES [facility] Acute Care Lab [address] [facility] Lab (1st floor, no room number) [place] [address] * (ABNORMAL) Basic metabolic panel [...] PA-C LAB - BLOOD ORDERABL ES LABORATORY [facility] Acute Care Lab [address] [facility] Lab (1st floor, no room number) [place] [address], [facility] * Transfuse red blood cells (unit) (02/25/2024 12:35 AM CDT) Mazin Srivastava MD BLOOD TRANSFUSION OR DERABLES * Transfuse red blood cells (unit), 1 Units (02/25/2024 12:35 AM CDT) Mazin Srivastava MD BLOOD TRANSFUSION OR DERABLES * Prepare red blood cells (unit) (02/24/2024 9:17 PM CDT) Blood Component Type Red Blood Cells RH BLOOD BANK Product Code [id number] RH BLOO D BANK Unit Status Transfused RH BLOO D BANK Unit Number [id number] RH B LOOD BANK CROSSMATCH Compatible RH BLOOD BANK CODING SYSTEM [id number] RH BLO OD BANK ISSUE DATE AND TIME [id number] RH BLOOD BANK UNIT ABO/RH O+ RH BLOOD BANK UNIT TYPE ISBT 5100 RH BL OOD BANK 02/24/2024 9:17 PM CDT Mazin Srivastava MD BLOOD BANK PRODUCT O RDERABLES Performing Organization Address [facility]/ZIP Co de Phone Number BLOOD BANK [address] [place] [address] * Transfuse red blood cells (unit) (02/24/2024 9:11 PM CDT) Mazin Srivastava MD BLOOD TRANSFUSION OR DERABLES * Transfuse red blood cells (unit), 1 Units (02/24/2024 9:11 PM CDT) Mazin Srivastava MD BLOOD TRANSFUSION OR DERABLES * Prepare red blood cells (unit) (02/24/2024 6:19 PM CDT) Blood Component Type Red Blood Cells RH BLOOD BANK Product Code S2445V07 RH BLOO D BANK Unit Status Transfused RH BLOO D BANK Unit Number [id number] RH B LOOD BANK CROSSMATCH Compatible RH BLOOD BANK CODING SYSTEM [id number] RH BLO OD BANK ISSUE DATE AND TIME [id number] RH BLOOD BANK UNIT ABO/RH O+ RH BLOOD BANK UNIT TYPE ISBT 5100 RH BL OOD BANK 02/24/2024 6:19 PM CDT Jae Noel MD BLOOD BANK PRODUCT O RDERABLES Performing Organization Address [facility] Co de Phone Number BLOOD BANK [address] [place] [address] * (ABNORMAL) Hemoglobin (02/24/2024 5:51 PM CDT) Hemoglobin 6.7(LL) 13.3 - 17.7 g/dL 02/24/2024 6:14 PM CDT RH LABORATORY Blood STRUCTURE OF LEFT UPPER LIMB / Unknown Venipuncture / Unknown 02/24/2024 5:51 PM CDT 02/24/2024 6:00 PM CDT Gómez Blackwood PA-C LAB - BLOOD ORDERABL ES Performing Organization Address City/[facility]/ZIP Co de Phone Number [facility] [address] [facility] Lab (1st floor, no room number) [place] [address] * Transfuse red blood cells (unit) (02/24/2024 2:35 PM CDT) Jae Noel MD BLOOD TRANSFUSION OR DERABLES * Transfuse red blood cells (unit), 1 Units (02/24/2024 2:35 PM CDT) Jae Noel MD BLOOD TRANSFUSION OR DERABLES * Prepare red blood cells (unit) (02/24/2024 11:35 AM CDT) Blood Component Type Red Blood Cells RH BLOOD BANK Product Code [id number] RH BLOO D BANK Unit Status Transfused RH BLOO D BANK Unit Number [id number] RH B LOOD BANK CROSSMATCH Compatible RH BLOOD BANK CODING SYSTEM [id number] RH BLO OD BANK ISSUE DATE AND TIME [id number] RH BLOOD BANK UNIT ABO/RH O+ RH BLOOD BANK UNIT TYPE ISBT 5100 RH BL OOD BANK 02/24/2024 11:3 5 AM CDT Jae Noel MD BLOOD BANK PRODUCT O RDERABLES BLOOD BANK [address] [place] [address] * (ABNORMAL) Occult blood stool (02/24/2024 11:31 AM CDT) Occult Blood Positive(A ) Negative JOJO 02/24/2024 11:40 AM CDT LABORATORY Stool RECTAL CONTENTS / Unknown Non-blood Collection / Unknown 02/24/2024 11:31 AM CDT 02/24/2024 11:38 AM CDT Jae Noel MD LAB - STOOLS ORDERAB LES [facility] [address] [facility], no room number) [place] [address] * CT Head w/o Contrast (02/24/2024 10:42 AM CDT) Anatomical Region Laterality Modality Head, SUBRAD CT NEURO, SUBRA D CT NEURO, UMP CT NEURO, RAD CT Computed Tomography Impressions 02/24/2024 11:11 AM CDT IMPRESSION: 1. No acute intracranial pathology. 2. Chronic small vessel ischemic disease and generalized cerebral volume loss. FLAKO ZUNIGA MD SYSTEM ID: ??[id number] Narrative 02/24/2024 11:11 AM CDT EXAM: CT HEAD W/O CONTRAST ??02/24/2024 10:42 AM HISTORY: ??Altered mental status, cocnern for ICH, on coumadin ?? COMPARISON: ??No prior similar studies TECHNIQUE: Using multidetector thin collimation helical acquisition technique, axial, coronal and sagittal CT images from the skull base to the vertex were obtained without intravenous contrast. Spring Repairer Helper Hand (topogram) image(s) also obtained and reviewed. Dose [...] the vertex were obtained without intravenous contrast. Spring Repairer Helper Hand (topogram) image(s) also obtained and reviewed. Dose reduction techniques were performed. FINDINGS: No intracranial hemorrhage, mass effect, or midline shift. No acute loss of iyp-white matter differentiation in the cerebral hemispheres. Ventricles [...] volume loss. FLAKO ZUNIGA MD SYSTEM ID: [id number] Jae Noel MD IMG CT ORDERABLES * [...] LAB - AKER POCT RH LABORATORY POC [facility] Care Lab [address] Lab (1st floor, no room number) [place] [address], [facility] * EKG 12-lead, tracing only (02/24/2024 10:12 AM CDT) Systolic Blood Pressure mmHg RADIOLOGY RESULTS Diastolic Blood Pressure mmHg RADIOLOGY RESULTS Ventricular Rate 77 BPM RAD IOLOGY RESULTS Atrial Rate 77 BPM RADIOLOG Y RESULTS SC Interval 210 ms RADIOLOG Y RESULTS QRS Duration 98 ms RADIOLO GY RESULTS QT 382 ms RADIOLOGY RESULTS QTc 432 ms RADIOLOGY RESULTS P [place] 49 degrees RADIOLOGY RESULTS R AXIS 6 degrees RADIOLOGY RESULTS T [place] 36 degrees RADIOLOGY RESULTS Interpretation ECG Sinus rhythm with 1st degree A-V block Otherwise normal ECG When compared with ECG of 16-DEC-2015 14:48, Criteria for Septal infarct are no longer Present Unconfirmed report - interpretation of this ECG is computer generated - see medical record for final interpretation Confirmed by - EMERGENCY ROOM, PHYSICIAN ([id number]), technical writer and editor YISSEL VELASQUEZ ([id number]) on 02/24/2024 10:54:14 AM RADIOLOGY RESULTS 02/24/2024 10:1 2 AM CDT 02/24/2024 10:54 AM CDT Jae Noel MD ECG ORDERABLES RADIOLOGY RESULTS * Adult Type and Screen (02/24/2024 10:07 AM CDT) ABO/RH(D) O POS 02/24/2024 10:08 AM CDT RH BLOOD BANK Antibody Screen Negative Negative 02/24/2024 10:08 AM CDT RH BLOOD BANK SPECIMEN EXPIRATION DATE [id number] 02/24/2024 10:08 AM CDT RH BLOOD BANK Blood STRUCTURE OF RIGHT UPPER LIMB / Unknown Venipuncture / Unknown 02/24/2024 10:07 AM CDT 02/24/2024 10:12 AM CDT Jae Noel MD LAB - BLOOD BANK SHANNON T ORDER Performing Organization Address City/[facility]/ZIP Co de Phone Number RH BLOOD BANK [address] [place] [address], [facility] * Ammonia (02/24/2024 10:06 AM CDT) Ammonia 26 16 - 60 umol/L 02/24/2024 10:32 AM CDT RH LABORATORY Blood STRUCTURE OF RIGHT UPPER LIMB / Unknown Venipuncture / Unknown 02/24/2024 10:06 AM CDT 02/24/2024 10:13 AM CDT Jae Noel MD LAB - BLOOD ORDERABL ES RH LABORATORY [facility] Acute Care Lab [address] Lab (1st floor, no room number) [place] [address], [facility] * (ABNORMAL) CBC with platelets and [...] Noel MD LAB - BLOOD ORDERABL ES [facility] [address] Lab (1st floor, no room number) [address] * (ABNORMAL) INR (02/24/2024 9:58 AM CDT) INR 2.46(H) 0.85 - 1.15 02/24/2024 10:26 AM CDT LABORATORY Blood STRUCTURE OF RIGHT UPPER LIMB / Unknown Venipuncture / Unknown 02/24/2024 9:58 AM CDT 02/24/2024 10:11 AM CDT Jae Noel MD LAB - BLOOD ORDERABL ES [facility] [address] Lab (1st floor, no room number) [address] * (ABNORMAL) Comprehensive metabolic panel (02/24/2024 [...] Noel MD LAB - BLOOD ORDERABL ES [facility] Lab [address] Lab (1st floor, no room number) [address] * Extra Purple Top Tube (02/24/2024 9:58 AM CDT) Hold Specimen [facility] 02/24/2024 11:16 AM CDT RH LABORATORY Blood STRUCTURE OF RIGHT UPPER LIMB / Unknown Venipuncture / Unknown 02/24/2024 9:58 AM CDT 02/24/2024 10:11 AM CDT Jae Noel MD LAB - BLOOD ORDERABL ES [facility] [address] Lab (1st floor, no room number) [address] * Extra Green Top ([place] Heparin) Tube (02/24/2024 9:58 AM CDT) Hold Specimen [facility] 02/24/2024 11:16 AM CDT RH LABORATORY Blood STRUCTURE OF RIGHT UPPER LIMB / Unknown Venipuncture / Unknown 02/24/2024 9:58 AM CDT 02/24/2024 10:11 AM CDT Jae Noel MD LAB - BLOOD ORDERABL ES [facility] [address] Lab (1st floor, no room number) [place] [address] * Extra Blue Top Tube (02/24/2024 9:58 AM CDT) Hold Specimen [facility] 02/24/2024 11:16 AM CDT LABORATORY Blood STRUCTURE OF RIGHT UPPER LIMB / Unknown Venipuncture / Unknown 02/24/2024 9:58 AM CDT 02/24/2024 10:11 AM CDT Jae Noel MD LAB - BLOOD ORDERABL ES [facility] [address] Lab (1st floor, no room number) [place] [address], [facility] documented in this encounter Visit Diagnoses [...] on 02/25/24 at 1421, For 1 dose, [place] throat with 1 spray 5 minutes prior [...] Lozada RN) 0831 ($Given - Provider: Adalgisa Amaya, LINDA) pantoprazole (PROTONIX) IV push injection 80 mg [...] Yasemin Colunga, LINDA)1131 (Stopped - Provider: Yasemin Colunga RN) sodium chloride 0.9% BOLUS 250 mL [...] tomorrow) 0932 ($New Bag - Provider: Molly iSmms, LINDA) warfarin ANTICOAGULANT (COUMADIN) tablet 5 mg [...] on 02/25/24 at 1421, For 1 dose, [place] throat with 1 spray 5 minutes prior [...] stools. documented in this encounter Care Teams Rn Practitioner Relationship Specialty Start Date End Date Preet Huff PCP - General 06/24/11 documented as of this encounter
--- OUTSIDE RECORDS SUMMARY | 2024-05-24 23:49 | XMS_ITS | Encounter Summary ---
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
--- OUTSIDE RECORDS SUMMARY | 2024-05-24 23:49 | XMS_ITS | Encounter Summary ---
Author Organization [facility] Address [address] [place] [address] Care Team Providers Care Possum Trapper Name Role Phone Preet Huff Primary Care Provider [phone] Reason for Visit * Reason Comments Altered [...] [facility] [address] [place] [address] Referral ID Status Reason Start Date Expiration Date Visits Re quested Visits Authorized [id number] 1 1 Encounter Details Date Type Department Care Team (Late st Contact Info) Description 02/25/2024 2:50 PM CDT - 02/25/2024 3:25 PM CDT Surgery [facility] [address] [place] [address] Momo Hercules MD [facility] GASTROENTEROLOGY DC [address] [facility]TO[facility]TE PORTILLO [id number] Esophagoscopy, gastroscopy, duodenoscopy (EGD), combined Surgery Details [...] file Gender Identity Male 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 Patient wasseen at [place] ED on 02/22 evening for concerns about [...] his mother and aunt who is his ELECTRICIAN YARD. He is legally blind as well. Hx [...] minutes discharging this patient. Georgia Perez DO [place] [address] MEDICAL SURGICAL [address] [facility] [address] Physical Exam Vital Signs: Temp: 97.6 ??F [...] is related to your kidney disease. Your supervisor pig machine will help with it. Follow-up and recommended [...] the vertex were obtained without intravenous contrast. Assurance Engineer (topogram) image(s) also obtained and reviewed. Dose [...] volume loss. FLAKO ZUNIGA MD SYSTEM ID: [id number] CT Abdomen Pelvis w Contrast Narrative EXAM: CT ABDOMEN PELVIS W CONTRAST LOCATION: [facility] DATE: 02/25/2024 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 Evaluate [...] sent through Care Everywhere. * Esophageal Varices (Turkmen) documented in this encounter Medications at Time [...] mom (Arianna), aunt (Thelma) who is alsohis ELECTRICIAN YARD, cousin (Aron) who is also his ELECTRICIAN YARD, and another cousin (Javon). Patient reports there are no stairs at home. Self-Care Usual Activity Tolerance good Current Activity Tolerance moderate Equipment Currently Used at Home none Fall history within last six months no (Per patient) Activity/Exercise/Self-Care Comment Patient's family provides 10 hours of ELECTRICIAN YARD services per day, cousin cares for patient [...] Evaluation Time PT Eval, Moderate Complexity Minutes (61862) 8 Physical Therapy Goals PT Frequency Daily PT Predicted Duration/Target Date for Goal Attainment 02/29/24 PT Goals Bed Mobility;Transfers;Gait PT: Bed Mobility Supine to/from sit;Rolling;Supervision/stand-by assist PT: Transfers Supervision/stand-by assist;Sit to/from stand;Bed to/from chair PT: Gait Supervision/stand-by assist;150 feet Interventions Interventions Quick Adds Therapeutic Activity Therapeutic Activity Therapeutic Activities: dynamic activities to improve functional performance Minutes (96629) 8 Symptoms Noted During/After Treatment Fatigue Treatment [...] lives with family, has 10 hours of ELECTRICIAN YARD assist per day. Anticipate discharge home with [...] checked every 4 hours. Outpatient Dialysis at [facility] Patient weight shifting, unable to make large shifts due to AVF in thigh Post treatment report given to Andre Franklin RN, RN Please remove patient dressing on AVF and AVG needle sites 24 hours after dialysis. If leaking occurs please apply a Band-Aid. * Georgia Perez DO - 02/25/2024 9:11 AM CDT [facility] Medicine Progress Note - Hospitalist Service [...] Per his Aunt, patient was seen at [place] ED on 02/22 evening for concerns about [...] his mother and aunt who is his ELECTRICIAN YARD. He is legally blind as well. Hx [...] 2-4 Days Georgia Perez DO Hospitalist Service [facility] Securely message with [employer] (more info) Text page via [employer] Paging/Directory Interval History No acute overnight events. [...] End-stage renal disease: Chronic Tuesday dialysis at [facility] Director: Dr. Holman Access: Left thigh AV graft, [...] evaluation ongoing, possible EGD Mann Brush DO [facility] consultants Office: [phone] Interval History: Patient seen during dialysis, admission [...] CHLORIDE 87* 88* JON 8.0* 8.3* CO2 21* 24 BUN 102.6* 76.2* CR 10.14* 8.60* [...] medications, labs and imaging. Mann Brush DO [facility] Consultants - Nephrology Office: [phone] * Mazin Srivastava MD - 02/24/2024 6:19 [...] Blackwood PA-C - 02/24/2024 12:12 PM CDT [facility] History and Physical - Hospitalist Service [...] Per his Aunt, patient was seen at [place] ED on 02/22 evening for concerns about [...] his mother and aunt who is his ELECTRICIAN YARD. He is legally blind as well. Hx [...] provider . GÓMEZ Blackwood PA-C Hospitalist Service [facility] Securely message with [employer] (more info) Text page via [facility] Paging/Directory Chief Complaint Dark stools History [...] Per his Aunt, patient was seen at [place] ED on 02/22 evening for concerns about [...] Informant Patient Reported? Taking? AMLODIPINE BESYLATE PO Instrumentation Engineer Yes No Sig: Take 10 mg by mouth four times a week On Non dialysis days which is MWFSun BISACODYL PO Instrumentation Engineer Yes No Sig: Take 10 mg by mouth four times a week (Takes 2 x 5mg tablet = 10mg dose) Tuesday, Tuesday, Tuesday, and Tuesday Calcium Acetate, Phos Binder, (CALCIUM ACETATE PO) Instrumentation Engineer Yes No Sig: Take 1,334 mg by mouth 3 times daily (with meals) Takes with meals (2 x 667mg tablet) Cholecalciferol (VITAMIN D3 PO) Instrumentation Engineer Yes No Sig: Take 2,000 Units by mouth every evening LISINOPRIL PO Instrumentation Engineer Yes No Sig: Take 40 mg by mouth daily (Takes 2 x 20mg tablet = 40mg ) METOPROLOL TARTRATE PO Instrumentation Engineer Yes No Sig: Take 100 mg by [...] the vertex were obtained without intravenous contrast. Assurance Engineer (topogram) image(s) also obtained and reviewed. Dose [...] volume loss. FLAKO ZUNIGA MD SYSTEM ID: [id number] Associated attestation - Georgia Perez DO - [...] Communication Assessment Patient's communication style: spoken language (Turkmen or Bilingual) Hearing Difficulty or Deaf: no [...] Support: Care provided by: other (see comments) (ELECTRICIAN YARD who is an aunt,Thelma and cousin Aron) Provides care for: no one, unable/limited ability to care for self Marital Status: Single ELECTRICIAN YARD Description of Support System: Supportive, Involved Current Resources: Patient receiving home care services: No Community Resources: County Programs, County Worker, Dialysis Services, OP Dialysis, ELECTRICIAN YARD, Transportation Services Equipment currently used at home: none Supplies currently used at home: Employment/Financial: Employment Status: unknown Financial Concerns: unknown Does the patient's insurance plan have a 3 day qualifying hospital stay waiver? No Lifestyle & Psychosocial Needs: Social Determinants of Health Food Insecurity: No Food Insecurity (06/23/2022) Received from [facility] Food Insecurity Worried About Running Out of Food in the Last Year: 1 Depression: Not at risk (05/22/2020) Received from [facility] PHQ-2 PHQ-2 Score: 0 Housing Stability: Low Risk (06/23/2022) Received from [facility] Housing Stability Unable to Pay for Housing in the Last Year: 1 Tobacco Use: Medium Risk (11/08/2023) Received from [facility] Patient History Smoking Tobacco Use: Never Smokeless Tobacco Use: Never Passive Exposure: Yes Financial Resource Strain: Low Risk (06/23/2022) Received from [facility] Financial Resource Strain Difficulty of Paying Living Expenses: 3 Difficulty of Paying Living Expenses: Not on file Alcohol Use: Not on file Transportation Needs: No Transportation Needs (06/23/2022) Received from [facility] Transportation Needs Lack of Transportation (Medical): 1 Physical Activity: Not on file Interpersonal Safety: Not on file Stress: Not on file Social Connections: Unknown (06/24/2023) Received from [facility] Social Connections Frequency of Communication with [...] No Current Concerns Values/Beliefs: Spiritual, Cultural Beliefs, Christian Practices, Values that affect care: Additional Information: Chart reviewed. Emergency numbers listed on face sheet have been updated by SW. SW called and spokewith pt's aunt Thelma [phone] who reports pt lives with his mom Arianna, aunt Thelma who is also his ELECTRICIAN YARD, cousin Aron who is also his ELECTRICIAN YARD and another cousin Javon. They live in a house. Thelma reports Aron cares for pt Tue-Tue and she provides pt's care on Sundays, he receives 10 hrsof ELECTRICIAN YARD services a day. She reports he is on a CADI Waiver. She reports he does not use any assistive devices. He gets dialysis on , , F at [facility] [phone] and gets transportation there through [facility]. Plan: SW will continue to follow pt and assist with discharge planning. Katja DUNCAN, [facility] Inpatient Care Coordination [facility] [phone] * Dinorah Allen APRN GRAIN PROCESSOR - 02/24/2024 2:34 PM CDTAssociated Order(s): GASTROENTEROLOGY IP CONSULT Images from the original note were not included. GASTROENTEROLOGY CONSULTATION Herminio Ramontorres Victor [address] [place] [id number] 58 year old male Admission Date/Time: 02/24/2024 [...] has had a colonoscopy or EGD before. REED CLEANER medications reviewed which include omeprazole 20mg daily. [...] to person, tells me he is in crane, slow to respond PSYCH: [facility]: I [...] including patient evaluation, reviewing documentation/test results, and time recorder. Thank you for asking us to participate in the care of this patient. Dinorah Allen, ADRIAN [facility] [phone] Associated attestation - Momo Hercules MD - [...] 12:59 PM CDTAssociated Order(s): NEPHROLOGY IP CONSULT [facility] Nephrology Consultation Date of Admission: 02/24/2024 Assessment & Plan Herminio Victor is a 58 year old male who was admitted on 02/24/2024. Assessment: 1) End-stage renal disease: Chronic Tuesday dialysis at [facility] Director: Dr. Holman Access: Left thigh AV graft, [...] hospitalist DO [facility] [phone] Reason for Consult I was asked to see the patient for ESRD management History is obtained from the patient and chart review. History of Present Illness Herminio Victor is a 58 year old male who presents to the emergency room today with some concerns of anemia, GI bleeding. Also some agitation and altered mentation. Patient dialyzes Wednesdays and Fridays at [facility]. Found to have hemoglobin of 6.2 prompting [...] from dialysis unit, last visit by physician bottling line operator on 02/13/2024. Past Medical History I [...] Informant Patient Reported? Taking? AMLODIPINE BESYLATE PO Instrumentation Engineer Yes No Sig: Take 10 mg by mouth four times a week On Non dialysis days which is MWFSun BISACODYL PO Instrumentation Engineer Yes No Sig: Take 10 mg by mouth four times a week (Takes 2 x 5mg tablet = 10mg dose) Tuesday, Tuesday, Tuesday, and Tuesday Calcium Acetate, Phos Binder, (CALCIUM ACETATE PO) Instrumentation Engineer Yes No Sig: Take 1,334 mg by mouth 3 times daily (with meals) Takes with meals (2 x 667mg tablet) Cholecalciferol (VITAMIN D3 PO) Instrumentation Engineer Yes No Sig: Take 2,000 Units by mouth every evening LISINOPRIL PO Instrumentation Engineer Yes No Sig: Take 40 mg by mouth daily (Takes 2 x 20mg tablet = 40mg ) METOPROLOL TARTRATE PO Instrumentation Engineer Yes No Sig: Take 100 mg by [...] Hernandez RN - 02/24/2024 11:51 AM CDT [facility] ED Nurse Handoff Report ED Chief [...] 2. Lift room needed: Yes. Bariatric: No Swine Nutritionist Needed: No Isolation: No. Infection: Not Applicable. [...] was sent here. He was seen at [facility] yesterday but nothing was found [...] POS Antibody Screen Negative SPECIMEN EXPIRATION DATE [id number] PREPARE RED BLOOD CELLS (UNIT) Blood Component Type Red Blood Cells Product Code K3123X03 Unit Status Not used Unit Number [id number] CROSSMATCH Compatible CODING SYSTEM [id number] UNIT ABO/RH O+ UNIT TYPE ISBT 5100 PREPARE RED BLOOD CELLS (UNIT) Blood Component Type Red Blood Cells Product Code X4721D18 Unit Status Ready for issue Unit Number [id number] CROSSMATCH Compatible CODING SYSTEM [id number] PREPARE RED BLOOD CELLS (UNIT) TRANSFUSE RED BLOOD CELLS (UNIT) ABO/RH TYPE AND SCREEN CT Head w/o Contrast Final Result IMPRESSION: 1. No acute intracranial pathology. 2. Chronic small vessel ischemic disease and generalized cerebral volume loss. FLAKO ZUNIGA MD SYSTEM ID: [id number] Treatments provided: See MAR Family Comments: NA [...] was sent here. He was seen at [facility] yesterday but nothing was found [...] with mom and his aunt is his ELECTRICIAN YARD. Past Medical History Medical History and Problem [...] Component Type Red Blood Cells Product Code U1360K21 Unit Status Not used Unit Number [id number] CROSSMATCH Compatible CODING SYSTEM [id number] UNIT ABO/RH O+ UNIT TYPE ISBT 5100 PREPARE RED BLOOD CELLS (UNIT) Blood Component Type Red Blood Cells Product Code S6933V20 Unit Status Transfused Unit Number [id number] CROSSMATCH Compatible CODING SYSTEM [id number] ISSUE DATE AND TIME [id number] UNIT ABO/RH O+ UNIT TYPE ISBT 5100 PREPARE RED BLOOD CELLS (UNIT) ABO/RH TYPE AND SCREEN Imaging CT Head w/o Contrast Final Result IMPRESSION: 1. No acute intracranial pathology. 2. Chronic small vessel ischemic disease and generalized cerebral volume loss. FLAKO ZUNIGA MD SYSTEM ID: [id number] EKG ECG taken at 1012, ECG read at 1020 Sinus rhythm with 1st degree AV block Otherwise normal ECG No change as compared to prior, dated 01/29/19. Rate 77 bpm. NM interval 210 ms. QRS duration 98 ms. [...] and long-term care needs assisted with his purchasing administrative assistant Aunt Thelma, who presents from dialysis due [...] statements to me. Jae Noel MD 02/24/24 3495 documented in this encounter Miscellaneous Notes * Pharmacy-Anticoagulation Service - John Rosado RPH - 02/26/2024 3:30 PM CDT Images from the original note were not included. 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 INR Goal= 2-3 Warfarin REED CLEANER Regimen: 5 mg M-F Anticoagulation Dose History [...] planning. * Plan of Care - Yasemin Vasquez, PT - 02/26/2024 3:30 PM CDT Physical Therapy Discharge Summary Reason for therapy discharge: Discharged to home. Progress towards therapy goal(s). See goals on Care Plan in Epic electronic health record for goal details. Goals met Therapy recommendation(s): Patient mobilizing with SBA-CGA, no assistive device. Patient lives with family, has 10 hours of ELECTRICIAN YARD assist per day. Anticipate discharge home with [...] Glucose Levels Within Targeted Range 02/26/2024423 by Foerign Lozada RN Outcome: Progressing 02/26/2024422 by Foreign Lozada RN Outcome: Not Progressing Intervention: Monitor and Manage Glycemia Recent Flowsheet Documentation Taken 02/26/2024 0000 by Foreign Lozada RN Medication Review/Management: medications reviewed Taken 02/25/20242099 by Foreign Lozada RN Medication Review/Management: medications reviewed Problem: Confusion Acute Goal: Optimal Cognitive Function 02/26/2024 042 by Foreign Lozada RN [...] RN Environmental Support: calm environment promoted Taken 02/25/20242099 by Foreign Lozada RN Environmental Support: calm [...] Documentation Taken 02/25/2024 1523 by Ramila Singh, LINDA Safety Promotion/Fall Prevention: activity supervised Intervention: Prevent and Manage VTE (Venous Thromboembolism) Risk Recent Flowsheet Documentation Taken 02/25/2024 1700 by Ramila Singh, RN VTE Prevention/Management: SCDs (sequential compression devices) off Taken 02/25/2024 1523 by Ramila Singh, RN VTE Prevention/Management: SCDs (sequential compression devices) off Intervention: Prevent Infection Recent Flowsheet Documentation Taken 02/25/2024 1523 by Ramila Snigh, RN Infection Prevention: single patient room provided rest/sleep promoted Goal: Optimal Comfort and Wellbeing Outcome: Progressing Intervention: Monitor Pain and Promote Comfort Recent Flowsheet Documentation Taken 02/25/2024 1609 by Ramila Singh, manager of supply chain Interventions: care clustered essential oils Goal: Readiness [...] shift note. Outcome: Progressing Flowsheets (Taken 02/24/2024 4082) Outcome Evaluation: Hgb 6.7 at 1800 recheck. [...] Fall Risk Recent Flowsheet Documentation Taken 02/24/2024 4375 by Ramila Singh RN Safety Promotion/Fall Prevention: [...] Singh RN - 02/24/2024 9:13 PM CDT [facility] for BP 87/33. Received Orders to transfuse 1 unit RBC. * Pharmacy-Admission Medication History - Axel Wiley - 02/24/2024 3:11 PM CDT Vascular Surgeon Admission Medication History Admission medication history is complete. The information provided in this note is only as accurateas the sources available at the time of the update. Information Source(s): Family member and CareEverywhere/SureScripts via phone Pertinent Information: Medication list obtained from sister (Thelma) who handles his medications. Changes made to REED CLEANER medication list: Added: Calcium Acetate (snack) Deleted: [...] Completed By: Axel Wiley 02/24/2024 3:11 PM REED CLEANER Med List Medication Sig Last Dose amLODIPine [...] at PM Associated attestation - Zuleyka Hopkins [facility] - 02/24/2024 7:30 PM CDT Medication history completed by pharmacy benefits coordinator, reviewed by Zuleyka Hopkins, PharmD * [...] B Surface Antibody (02/26/2024 11:13 AM CDT) [facility] Hepatitis B Surface Antibody Reactive 02/26/2024 [...] LAB - BLOOD ORDER NADIA [facility] LABORATORY [facility] [place] [facility] [address] [facility] [address], [address] [place] [address] * (ABNORMAL) INR (02/26/2024 9:49 AM CDT) INR 1.27(H) 0.85 - 1.15 02/26/2024 10:13 AM CDT LABORATORY Blood STRUCTURE OF RIGHT HAND / Unknown Venipuncture / Unknown 02/26/2024 9:49 AM CDT 02/26/2024 9:58 AM CDT Georgia Perez DO LAB - BLOOD ORDER NADIA LABORATORY [facility] Acute Care Lab [address] Lab (1st floor, no room number) [place] [address] * (ABNORMAL) Renal panel (02/26/2024 [...] DO LAB - BLOOD ORDER NADIA LABORATORY [facility] [address] [facility] [facility] Lab (1st floor, no room number) [place] [address] * (ABNORMAL) CBC with platelets [...] LAB - BLOOD ORDER NADIA RH LABORATORY [facility] Lab [address] Lab (1st floor, no room number) [place] [address], [facility] [[email or web address]] * (ABNORMAL) Ferritin (02/26/2024 6:10 AM CDT) Ferritin 1,463(H) 31 - 409 ng/mL 02/26/2024 12:37 PM CDT [facility]U LABORATORY Blood STRUCTURE OF RIGHT HAND / Unknown Venipuncture / Unknown 02/26/2024 6:10 AM CDT 02/26/2024 6:20 AM CDT Momo Hercules MD LAB - BLOOD ORDERABL ES [facility] LABORATORY [facility] [place] [facility] [address] [facility], [address] [place] [address], [facility] [[email or web address]] * (ABNORMAL) Iron and iron binding capacity [...] MD LAB - BLOOD ORDERABL ES LABORATORY [facility] [address] Lab (1st floor, no room number) [place] [address] * CT Abdomen Pelvis w [...] EXAM: CT ABDOMEN PELVIS W CONTRAST LOCATION: [facility] DATE: 02/25/2024 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 Evaluate [...] EXAM: CT ABDOMEN PELVIS W CONTRAST LOCATION: [facility] DATE: 02/25/2024 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 Evaluate [...] lytic changes involving the superior aspect of [id number] body (series 3, image 137) with some [...] (02/25/2024 3:01 PM CDT) Upper GI Endoscopy [facility] Patient Name: Herminio Victor ? Procedure [...] ?Olympus Gastroscope, Model # [id number], Censitrac # [id number] was introduced through the mouth, and ?advanced [...] Note Initiated On: 02/25/2024 3:01 PM MRN: ?[id number] Procedure Date: ? 02/25/2024 3:01:34 PM Total [...] PA-C LAB - BLOOD ORDERABL ES LABORATORY [facility] Acute Care Lab [address] [facility] Lab (1st floor, no room number) [place] [address], [facility] [[email or web address]] * (ABNORMAL) INR (02/25/2024 9:28 AM CDT) INR 3.00(H) 0.85 - 1.15 02/25/2024 9:46 AM CDT LABORATORY Blood BLOOD SPECIMEN / Unknown Venipuncture / Unknown 02/25/2024 9:28 AM CDT 02/25/2024 9:32 AM CDT Georgia Perez DO LAB - BLOOD ORDER NADIA LABORATORY [facility] Acute Care Lab [address] Lab (1st floor, no room number) [place] [address] * Hepatitis B surface antigen (02/25/2024 6:45 AM CDT) Hepatitis B Surface Antigen Nonreactive Nonreactive 02/25/2024 10:36 AM CDT LABORATORY Blood STRUCTURE OF LEFT UPPER LIMB / Unknown Venipuncture / Unknown 02/25/2024 6:45 AM CDT 02/25/2024 6:51 AM CDT Mann Brush DO LAB - BLOOD ORDERABL ES LABORATORY [facility] [place] [facility] [address] [facility], [address] [place] [address] * (ABNORMAL) Hemoglobin (02/25/2024 6:45 AM CDT) Hemoglobin 7.8(L) 13.3 - 17.7 g/dL 02/25/2024 7:29 AM CDT LABORATORY Blood STRUCTURE OF LEFT UPPER LIMB / Unknown Venipuncture / Unknown 02/25/2024 6:45 AM CDT 02/25/2024 6:51 AM CDT Gómez Blackwood PA-C LAB - BLOOD ORDERABL ES LABORATORY [facility] Acute [facility] Lab [address] Lab (1st floor, no room number) [place] [address] * (ABNORMAL) CBC with platelets (02/25/2024 [...] PA-C LAB - BLOOD ORDERABL ES LABORATORY [facility] [address] [facility] Lab (1st floor, no room number) [place] [address], [facility] [[email or web address]] * (ABNORMAL) Basic metabolic panel (02/25/2024 6:45 AM CDT) [facility] Signature Sodium 126(L) 135 - 145 [...] PA-C LAB - BLOOD ORDERABL ES LABORATORY [facility] Lab [address] [facility] Lab (1st floor, no room number) [place] [address], [facility] [[email or web address]] * Transfuse red blood cells (unit) (02/25/2024 12:35 AM CDT) Mazin Srivastava MD BLOOD TRANSFUSION OR DERABLES * Transfuse red blood cells (unit), 1 Units (02/25/2024 12:35 AM CDT) Mazin Srivastava MD BLOOD TRANSFUSION OR DERABLES * Prepare red blood cells (unit) (02/24/2024 9:17 PM CDT) Blood Component Type Red Blood Cells RH BLOOD BANK Product Code [id number] RH BLOO D BANK Unit Status Transfused RH BLOO D BANK Unit Number [id number] RH B LOOD BANK CROSSMATCH Compatible RH BLOOD BANK CODING SYSTEM [id number] RH BLO OD BANK ISSUE DATE AND TIME [id number] RH BLOOD BANK UNIT ABO/RH O+ RH BLOOD BANK UNIT TYPE ISBT 5100 RH BL OOD BANK 02/24/2024 9:17 PM CDT Mazin Srivastava MD BLOOD BANK PRODUCT O RDERABLES Performing Organization Address [facility] Co de Phone Number RH BLOOD BANK [address] [place] [address] * Transfuse red blood cells (unit) (02/24/2024 9:11 PM CDT) Mazin Srivastava MD BLOOD TRANSFUSION OR DERABLES * Transfuse red blood cells (unit), 1 Units (02/24/2024 9:11 PM CDT) Mazin Srivastava MD BLOOD TRANSFUSION OR DERABLES * Prepare red blood cells (unit) (02/24/2024 6:19 PM CDT) Blood Component Type Red Blood Cells RH BLOOD BANK Product Code [id number] RH BLOO D BANK Unit Status Transfused RH BLOO D BANK Unit Number [id number] RH B LOOD BANK CROSSMATCH Compatible RH BLOOD BANK CODING SYSTEM [id number] RH BLO OD BANK ISSUE DATE AND TIME [id number] RH BLOOD BANK UNIT ABO/RH O+ RH BLOOD BANK UNIT TYPE ISBT 5100 RH BL OOD BANK 02/24/2024 6:19 PM CDT Jae Noel MD BLOOD BANK PRODUCT O RDERABLES Performing Organization Address [facility] Co de Phone Number RH BLOOD BANK [address] [place] [address] * (ABNORMAL) Hemoglobin (02/24/2024 5:51 PM CDT) Hemoglobin 6.7(LL) 13.3 - 17.7 g/dL 02/24/2024 6:14 PM CDT RH LABORATORY Blood STRUCTURE OF LEFT UPPER LIMB / Unknown Venipuncture / Unknown 02/24/2024 5:51 PM CDT 02/24/2024 6:00 PM CDT Gómez Blackwood PA-C LAB - BLOOD ORDERABL ES Performing Organization Address [facility]/ZIP Co de Phone Number [facility] Acute Care Lab [address] Lab (1st floor, no room number) [place] [address] * Transfuse red blood cells (unit) (02/24/2024 2:35 PM CDT) Jae Noel MD BLOOD TRANSFUSION OR DERABLES * Transfuse red blood cells (unit), 1 Units (02/24/2024 2:35 PM CDT) Jae Noel MD BLOOD TRANSFUSION OR DERABLES * Prepare red blood cells (unit) (02/24/2024 11:35 AM CDT) Blood Component Type Red Blood Cells RH BLOOD BANK Product Code [id number] RH BLOO D BANK Unit Status Transfused RH BLOO D BANK Unit Number [id number] RH B LOOD BANK CROSSMATCH Compatible RH BLOOD BANK CODING SYSTEM [id number] RH BLO OD BANK ISSUE DATE AND TIME [id number] RH BLOOD BANK UNIT ABO/RH O+ RH BLOOD BANK UNIT TYPE ISBT 5100 RH BL OOD BANK 02/24/2024 11:3 5 AM CDT Jea Noel MD BLOOD BANK PRODUCT O RDERABLES Performing Organization Address [facility] Co de Phone Number BLOOD BANK [address] [place] [address] * (ABNORMAL) Occult blood stool (02/24/2024 11:31 AM CDT) Occult Blood Positive(A ) Negative JOJO 02/24/2024 11:40 AM CDT RH LABORATORY Stool RECTAL CONTENTS / Unknown Non-blood Collection / Unknown 02/24/2024 11:31 AM CDT 02/24/2024 11:38 AM CDT Jae Noel MD LAB - STOOLS ORDERAB LES Performing Organization Address City/[facility]/ZIP Co de Phone Number [facility] Acute Care Lab [address] Lab (1st floor, no room number) [place] [address] * CT Head w/o Contrast (02/24/2024 10:42 AM CDT) Anatomical Region Laterality Modality Head, SUBRAD CT NEURO, SUBRA D CT NEURO, UMP CT NEURO, RAD CT Computed Tomography Impressions 02/24/2024 11:11 AM CDT IMPRESSION: 1. No acute intracranial pathology. 2. Chronic small vessel ischemic disease and generalized cerebral volume loss. FLAKO ZUNIGA MD SYSTEM ID: ??[id number] Narrative 02/24/2024 11:11 AM CDT EXAM: CT HEAD W/O CONTRAST ??02/24/2024 10:42 AM HISTORY: ??Altered mental status, cocnern for ICH, on coumadin ?? COMPARISON: ??No prior similar studies TECHNIQUE: Using multidetector thin collimation helical acquisition technique, axial, coronal and sagittal CT images from the skull base to the vertex were obtained without intravenous contrast. Assurance Engineer (topogram) image(s) also obtained and reviewed. Dose [...] the vertex were obtained without intravenous contrast. Assurance Engineer (topogram) image(s) also obtained and reviewed. Dose [...] volume loss. FLAKO ZUNIGA MD SYSTEM ID: [id number] Jae Noel MD IMG CT ORDERABLES * [...] LAB - BEAKER POCT RH LABORATORY POC [facility] Acute Care Lab [address] [facility] Lab (1st floor, no room number) [place] [address] * EKG 12-lead, tracing only (02/24/2024 10:12 AM CDT) Systolic Blood Pressure mmHg RADIOLOGY RESULTS Diastolic Blood Pressure mmHg RADIOLOGY RESULTS Ventricular Rate 77 BPM RAD IOLOGY RESULTS Atrial Rate 77 BPM RADIOLOG Y RESULTS NM Interval 210 ms RADIOLOG Y RESULTS QRS Duration 98 ms RADIOLO GY RESULTS QT 382 ms RADIOLOGY RESULTS QTc 432 ms RADIOLOGY RESULTS P [place] 49 degrees RADIOLOGY RESULTS R AXIS 6 degrees RADIOLOGY RESULTS T [place] 36 degrees RADIOLOGY RESULTS Interpretation ECG Sinus rhythm with 1st degree A-V block Otherwise normal ECG When compared with ECG of 16-DEC-2015 14:48, Criteria for Septal infarct are no longer Present Unconfirmed report - interpretation of this ECG is computer generated - see medical record for final interpretation Confirmed by - EMERGENCY ROOM, PHYSICIAN ([id number]), assistant production editor YISSEL VELASQUEZ ([id number]) on 02/24/2024 10:54:14 AM RADIOLOGY RESULTS 02/24/2024 10:1 2 AM CDT 02/24/2024 10:54 AM CDT Jae Noel MD ECG ORDERABLES RADIOLOGY RESULTS * Adult Type and Screen (02/24/2024 10:07 AM CDT) ABO/RH(D) O POS 02/24/2024 10:08 AM CDT RH BLOOD BANK Antibody Screen Negative Negative 02/24/2024 10:08 AM CDT RH BLOOD BANK SPECIMEN EXPIRATION DATE [id number] 02/24/2024 10:08 AM CDT RH BLOOD BANK Blood STRUCTURE OF RIGHT UPPER LIMB / Unknown Venipuncture / Unknown 02/24/2024 10:07 AM CDT 02/24/2024 10:12 AM CDT Jae Noel MD LAB - BLOOD BANK SHANNON T ORDER RH BLOOD BANK [address] [place] [address], [facility] [[email or web address]] * Ammonia (02/24/2024 10:06 AM CDT) Ammonia 26 16 - 60 umol/L 02/24/2024 10:32 AM CDT RH LABORATORY Blood STRUCTURE OF RIGHT UPPER LIMB / Unknown Venipuncture / Unknown 02/24/2024 10:06 AM CDT 02/24/2024 10:13 AM CDT Jae Noel MD LAB - BLOOD ORDERABL ES RH LABORATORY [facility] Acute Care Lab [address] Lab (1st floor, no room number) [place] [address], [facility] [[email or web address]] * (ABNORMAL) CBC with platelets and differential [...] AM CDT 02/24/2024 10:11 AM CDT Jae Neol MD LAB - BLOOD ORDERABL ES [facility] [address] Lab (1st floor, no room number) [place] [address] * (ABNORMAL) INR (02/24/2024 9:58 AM CDT) INR 2.46(H) 0.85 - 1.15 02/24/2024 10:26 AM CDT RH LABORATORY Blood STRUCTURE OF RIGHT UPPER LIMB / Unknown Venipuncture / Unknown 02/24/2024 9:58 AM CDT 02/24/2024 10:11 AM CDT Jae Noel MD LAB - BLOOD ORDERABL ES [facility] Acute Care Lab [address] Lab (1st floor, no room number) [place] [address], [facility] [[email or web address]] * (ABNORMAL) Comprehensive metabolic panel (02/24/2024 9:58 AM CDT) [facility] Sodium 130(L) 135 - 145 mmol/L [...] - 5.3 mmol/L 02/24/2024 10:37 AM CDT RH LABORATORY Carbon Dioxide (CO2) [...] - BLOOD ORDERABL ES Performing Organization Address City/[facility]/ZIP Co de Phone Number [facility] Care Lab [address] Lab (1st floor, no room number) [place] [address] * Extra Purple Top Tube (02/24/2024 9:58 AM CDT) [facility] Hold Specimen [facility] 02/24/2024 11:16 AM CDT RH LABORATORY Blood STRUCTURE OF RIGHT UPPER LIMB / Unknown Venipuncture / Unknown 02/24/2024 9:58 AM CDT 02/24/2024 10:11 AM CDT Jae Noel MD LAB - BLOOD ORDERABL ES [facility] Lab [address] Lab (1st floor, no room number) [place] [address], [facility] [[email or web address]] * Extra Green Top (Dortches Heparin) Tube (02/24/2024 9:58 AM CDT) Hold Specimen [facility] 02/24/2024 11:16 AM CDT LABORATORY Blood STRUCTURE OF RIGHT UPPER LIMB / Unknown Venipuncture / Unknown 02/24/2024 9:58 AM CDT 02/24/2024 10:11 AM CDT Jae Noel MD LAB - BLOOD ORDERABL ES Performing Organization Address City/[facility]/ZIP Co de Phone Number [facility] [address] Lab (1st floor, no room number) [place] [address] * Extra Blue Top Tube (02/24/2024 9:58 AM CDT) Hold Specimen [facility] 02/24/2024 11:16 AM CDT LABORATORY Blood STRUCTURE OF RIGHT UPPER LIMB / Unknown Venipuncture / Unknown 02/24/2024 9:58 AM CDT 02/24/2024 10:11 AM CDT Jae Noel MD LAB - BLOOD ORDERABL ES Performing Organization Address [facility] Co de Phone Number [facility] [address] Lab (1st floor, no room number) [place] [address] documented in this encounter Visit Diagnoses [...] 5 mg, Oral, ONCE AT 6PM, On [place] 02/26/24 at 1800, For 1 dose Warfarin Dose Required Daily - Pharmacist Managed SEE ADMIN INSTRUCTIONS, Starting on Tue02/26/24 at 0931, Until [place] 02/26/24 at 1731, *Note to reorder warfarin daily* Nurse to contact pharmacist if dose not ordered by 6 PM. Pharmacy Warfarin Dosing Service Patient is on Warfarin Therapy - check for daily order documented in this encounter Active and Recently Administered Medications Times are shown in CDT. Scheduled Medication Order 02/24/2024 02/25/2024 02/26/2024 CT Scan Flush (COMPLETED) Intravenous, 100 mL, ONCE, On [facility] 02/25/24 at 1700, For 1 dose, This entry is for use by Radiology to intermittently used as a flush in patients receiving a CT scan. 1650 ($Given - Provider: William Corrales) iopamidol (ISOVUE-370) solution 500 mL (COMPLETED) 500 mL, Intravenous, ONCE, On [facility] 02/25/24 at 1700, For 1 dose [...] Colunga, LINDA)1131 (Stopped - Provider: Yasemin Colunga, LINDA) sodium [...] on 02/25/24 at 1421, For 1 dose, [place] throat with 1 spray 5 minutes prior [...] stools. documented in this encounter Care Teams Possum Trapper Relationship Specialty Start Date End Date Preet Huff PCP - General 06/24/11 documented as of this encounter
--- OUTSIDE RECORDS SUMMARY | 2024-05-24 23:50 | XMS_ITS | Encounter Summary ---
Author Organization [place] Address [address] [facility] [place] [address] Care Team Providers Care Code Official Name Role Phone Preet Huff Primary Care Provider Jaxon Saravia MD Unavailable [phone] Encounter Details Date Type Department Care Team (Late st Contact Info) Description 05/07/2013 Orders Only [facility] Interventional Radiology 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
--- OUTSIDE RECORDS SUMMARY | 2024-05-24 23:50 | XMS_ITS | Encounter Summary ---
Author Organization [place] Address [address] [facility] [place] [address] Care Team Providers Care Sack Repairer Name Role Phone Preet Huff Primary Care Provider Jaxon Saravia MD Unavailable [phone] Encounter Details Date Type Department Care Team (Late st Contact Info) Description 12/21/2012 Orders Only [facility] Interventional Radiology 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
--- OUTSIDE RECORDS SUMMARY | 2024-05-24 23:50 | XMS_ITS | Encounter Summary ---
Author Organization [place] Address [address] [facility] [place] [address] Care Team Providers Care Cheese Weigher Name Role Phone Preet Huff Primary Care Provider [phone] Jaxon Saravia MD Unavailable [phone] Encounter Details Date Type Department Care Team (Late st Contact Info) Description 10/20/2011 Hospital PHYS STANDARD [address] [phone] Wojciech Holman MD [facility] [address] [place] [id number] ESRD (end stage renal disease) on dialysis (H); Hyperkalemia Social History Tobacco Use Types Packs/Day Years Used Date Smoking Tobacco: Never Smokeless Tobacco: Never Alcohol Use Standard Drinks/Week Comments No 0 (1 standard drink = 0.6 oz pur e alcohol) Sex and Gender Information Value Date Recorded Sex Assigned at Not on file Gender Identity Male 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
--- OUTSIDE RECORDS SUMMARY | 2024-05-24 23:50 | XMS_ITS | Encounter Summary ---
Author Organization [place] Address [address] [facility] [address] Care Team Providers Care Biometrician Name Role Phone RefugioPreet Primary Care Provider [phone] Encounter Details Date Type Department Care Team (Late st Contact Info) Description 02/08/2022 External Order Results [facility] [address] [place] [address] Outside, Provider Social History Tobacco Use Types Packs/Day Years Used Date Smoking Tobacco: Never Smokeless Tobacco: Never Alcohol Use Standard Drinks/Week Comments No 0 (1 standard drink = 0.6 oz pur e alcohol) PHQ-2 Answer Date Recorded PHQ-2 Score 0 10/18/2018 Sex and Gender Information Value Date Recorded Sex Assigned at Not on file Gender Identity Male 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
--- OUTSIDE RECORDS SUMMARY | 2024-05-24 23:50 | XMS_ITS | Encounter Summary ---
Author Organization [place] Address [address] [facility] [place] [address] Care Team Providers Care Sterilizer Machine Operator Name Role Phone Preet Huff Primary Care Provider [phone] Jaxon Saravia MD Unavailable [phone] Encounter Details Date Type Department Care Team (Late st Contact Info) Description 05/07/2013 Orders Only [facility] Interventional Radiology 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
--- OUTSIDE RECORDS SUMMARY | 2024-05-24 23:50 | XMS_ITS ---
Author Organization [place] Address [address] [place] [address] Care Team Providers Care Dietary Director Name Role Phone Preet Huff Primary Care Provider [phone] Transitional Care Management Status:Closed (Closed) Start date:03/13/2024 Enrollment date:03/13/2024 End date:2024 Close reason:Goals met Continued Care and Services Coordination
--- OUTSIDE RECORDS SUMMARY | 2024-05-24 23:50 | XMS_ITS ---
Author Organization [place] Address [address] [place] [address] Care Team Providers Care Adult Care Manager Name Role Phone Preet Huff Primary Care Provider [phone] Transitional Care Management Status:Closed (Closed) Start date:02/27/2024 Enrollment date:02/27/2024 End date:03/12/2024 Close reason:Goals met Continued Care and Services Coordination
== END 2024-05-23 12:29 | disposition home or self-care (01) ==
LOC: AMB 05-24 23:39
PROVIDERS: PCP Internal Medicine Nephrology; Visit Provider Student in an Organized Health Care Education/Training Program
DX: R10.2 Pelvic and perineal pain (principal); K92.0 Hematemesis
CPT/HCPCS: A0425; A0429

== ENCOUNTER 2024-06-01 14:51 | Outpatient (CLI) | payer MEDICARE, MEDICAID, SELFPAY ==
--- NOTE | 2024-06-06 14:15 | PC.SOCIAL ---
Social work: Received call from Margarette Chery, [facility], stating there is an open Vulnerable Adult case on this patient and requesting MD note from visit on 06/01/24 be sent to her. Secure emailed requested information.
== END 2024-06-01 14:52 | disposition home or self-care (01) ==
LOC: AMB 06-04 15:10
PROVIDERS: PCP Internal Medicine Nephrology; Visit Provider Student in an Organized Health Care Education/Training Program
DX: R53.1 Weakness (principal)
CPT/HCPCS: A0425; A0428; A0429

== ENCOUNTER 2024-06-01 15:22 | Emergency (ER) | payer MEDICARE, MEDICAID, SELFPAY ==
[2024-06-01] VITALS (12 sets, daily range): BP systolic 127–142; BP diastolic 61–67; PULSE 70–76; RESP 16–17; TEMP 36.2; O2SAT 97–100; BMI 27.4
--- NOTE | 2024-06-01 16:06 | ED_ITS ---
HPI - Weakness General Chief complaint: Weakness Stated complaint: Weakness Time Seen by Provider: 06/01/24 15:52 History of Present Illness HPI Narrative: This 59-year-old male comes in by ambulance because of report of weakness. He states that he is able to get up and ambulate. He does not complain of any pain or injury. He is in renal failure and on dialysis. He has a history of anemia and a hemoglobin checked here about 3 months ago was at 6.0. He arrives here with normal vital signs. He does not report any cough or signs of infection. Related Data Home Medications ?Medication ?Instructions ?Recorded ?Confirmed calcium acetate(phosphat bind) 667 667 mg PO 3XD 02/23/24 02/23/24 mg capsule lisinopril 20 mg tablet mg PO 02/23/24 metoprolol tartrate 100 mg tablet mg PO 02/23/24 vitamin B complex and vitamin C 1 cap PO DAILY 02/23/24 02/23/24 no.20-folic acid 1 mg capsule (Virt-Caps) warfarin 5 mg tablet 5 mg PO DAILY 02/23/24 02/23/24 Allergies Allergy/AdvReac Type Severity Reaction Status Date / Time No Known Drug Allergies Allergy Verified 02/23/24 20:22 Review of Systems Status of ROS: Reports: 10 or more systems reviewed and unremarkable except as noted in History and below Narrative: Constitutional: No fevers, no weight gain or loss. Eyes: No discharge. No vision changes. HENT: No congestion, no sore throat, no ear pain. Cardiovascular: No chest pain, no palpitations. Respiratory: No shortness of breath, no wheezes, no cough. Gastrointestinal: No abdominal pain, no vomiting, no diarrhea. Genitourinary: He is in renal failure and does not produce any urine. Musculoskeletal: Normal range of motion. Skin: No rashes, no pruritis. Neurological: No dizziness, sensory change, speech change. He reports generalized weakness. Endo/Heme/Allergies: No bruising or bleeding. No polydipsia. Pysch: no suicidality, no anxiety, no insomnia. All other systems reviewed and are negative. [facility] Medical History (Updated 06/01/24 @ 17:21 by Joni Ley MD) CVA (cerebral vascular accident) ?I63.9 - Cerebral infarction, unspecified (ICD-10) Dialysis patient ?Z99.2 - Dependence on renal dialysis (ICD-10) Social History Smoking Status: Never smoker How often do you have a drink containing alcohol: never AUDIT-C Alcohol total score: 0 Non-prescribed substance use: denies use Exam Narrative: Exam Narrative: Constitutional: Well-developed, well-nourished, no acute distress. HEENT: Normocephalic, atraumatic. Neck: Normal range of motion. Nontender. Supple. Heart: Regular. Systolic ejection murmur. Normal rate. Intact distal pulses. Lungs: Clear to auscultation. No chest discomfort. No wheezes, rhonchi, or rales. Abdomen: Normal bowel sounds. Nontender. No rebound tenderness. Genitalia: Deferred. Back: No midline tenderness. Normal range of motion. Extremities: Normal range of motion. Dialysis shunt is in his right anterior thigh. There is no active bleeding currently. A dressing the placed after access for dialysis today did have some bleeding but this has not continued. Skin: Intact. No rash. Warm. No erythema or pallor. Neurologic: No altered sensation. No weakness. Alert and oriented. Psychiatric: No suicidality. No anxiety or depression. No insomnia. Nursing notes and vitals signs are reviewed. Const: Vital Signs, click to edit/add: Vital Signs - 24 hr 06/01/24 15:36 06/01/24 16:26 06/01/24 16:30 Temperature 97.1 F L Pulse Rate 72 74 Pulse Rate [Pulse Oximeter] 72 Respiratory Rate 17 Blood Pressure [Ri ght Upper Arm] 127/62 Pulse Oximetry 97 97 100 Oxygen Delivery Me thod Room Air 06/01/24 16:45 06/01/24 17:00 Temperature Pulse Rate 72 76 Pulse Rate [Pulse Oximeter] Respiratory Rate Blood Pressure [Ri ght Upper Arm] Pulse Oximetry 100 100 Oxygen Delivery Me thod Course Vital Signs Vital signs: Initial Vital Signs Temperature 97.1 F L 06/01/24 15:36 Temperature Source Temporal Artery Scan 06/01/24 15:36 Pulse Rate 72 06/01/24 15:36 Respiratory Rate 17 06/01/24 15:36 Blood Pressure 127/62 06/01/24 15:36 Blood Pressure Mean 83 06/01/24 15:36 Pulse Oximetry 97 06/01/24 15:36 Oxygen Delivery Method Room Air 06/01/24 15:36 Vital Signs Temperature 97.1 F L 06/01/24 15:36 Pulse Rate 72 06/01/24 15:36 Respiratory Rate 17 06/01/24 15:36 Blood Pressure 127/62 06/01/24 15:36 Pulse Oximetry 97 06/01/24 15:36 Oxygen Delivery Method Room Air 06/01/24 15:36 Temperature 97.1 F L 06/01/24 15:36 Pulse Rate 76 06/01/24 17:00 Respiratory Rate 17 06/01/24 15:36 Blood Pressure 127/62 06/01/24 15:36 Pulse Oximetry 100 06/01/24 17:00 Oxygen Delivery Method Room Air 06/01/24 15:36 MDM - Weakness MDM Narrative Medical decision making narrative: This patient finished dialysis and there was blood noted on the right anterior leg where his fistula is. He is on anticoagulants. At the time of his visit here there is no active bleeding. The nurse contacted a family member who stated that the only concern that this family member head in his regard was this bleeding on his leg. The patient does arrive with normal vital signs and is in no acute distress. I did acquire labs an EKG and these returned with enough reassurance. His hemoglobin is at 8 but this is likely normal for him. A previous hemoglobin was significantly lower at around 5. This was about 3 months ago. This patient is okay to be discharged home to resume current plans. Lab Data Labs: Lab Results 06/01/24 Range/Units 16:20 WBC 6.94 (4.50-11.00) K/uL RBC 2.89 L (4.30-5.90) m/uL Hgb 8.0 L (13.5-17.5) gm/dL Hct 27.5 L (37.0-53.0) % MCV 95 (80-100) fL MCH 28 (26-34) pg MCHC 29 L (32-36) gm/dL RDW Coeff of Zeenat 21.1 H (11.5-15.5) % Plt Count 169 (140-440) K/uL Neut % (Auto) 79.4 H (42.0-72.0) % Lymph % (Auto) 8.4 L (20-44) % Starke % (Auto) 8.6 (0.0-11.0) % Eos % (Auto) 1.3 (0.0-7.0) % Baso % (Auto) 0.1 (0.0-3.0) % Neut # (Auto) 5.50 (1.7-7.0) K/uL Lymph # (Auto) 0.60 L (0.90-2.90) K/uL Starke # (Auto) 0.60 (0.00-0.90) K/UL Eos # (Auto) 0.09 (0.00-0.50) K/uL Baso # (Auto) 0.01 (0.00-0.30) K/uL Abs Immat Gran (auto) 0.15 (0.00-0.30) K/uL Imm/Tot Granulo (auto) 2.2 % INR 1.46 H (0.91-1.10) Sodium 131 L (135-149) mmol/L Potassium 3.8 (3.6-5.1) mmol/L Chloride 95 L (96-114) mmol/L Carbon Dioxide 29 (20-32) mmol/L Anion Gap 7 (7-15) mEq/L BUN 20 (7-30) mg/dL Creatinine 5.1 H (0.5-1.5) mg/dL Estimated Creat Clear 14.72 Estimated GFR 12 ml/min Glucose 176 H (60-115) mg/dL Calcium 9.0 (8.4-10.6) mg/dL ECG Data Attestation: I personally reviewed and interpreted this ECG as follows: Interpretation: Normal sinus rhythm. Rate is 62 beats per minute. There are no ST or T-wave abnormalities. Discharge Plan Discharge Clinical Impression: Right thigh hemodialysis AV fistula bleed, Anemia Patient Disposition: Home w/ Parent or Adult Condition: Stable Additional Instructions: Continue current plans. Follow up with MD return if worsening. Prescriptions: No Action metoprolol tartrate 100 mg tablet PO lisinopril 20 mg tablet PO warfarin 5 mg tablet 5 mg PO DAILY Virt-Caps 1 mg capsule 1 cap PO DAILY calcium acetate(phosphat bind) 667 mg capsule 667 mg PO 3XD Follow Up/Referrals: Williams Holman MD [Primary Care Provider] - Stand Alone Forms: CDC Software Info Instructions
[2024-06-01 16:46] LABS: Basophils Absolute Auto 0.01 K/uL (0.00-0.30); Basophils Percent Auto 0.1 % (0.0-3.0); Eosinophils Absolute Auto 0.09 K/uL (0.00-0.50); Eosinophils Percent Auto 1.3 % (0.0-7.0); Hematocrit 27.5 % (37.0-53.0); Immature Granulocytes Abs Auto 0.15 K/uL (0.00-0.30); Immature Granulocytes Pct Auto 2.2 %; Lymphocytes Percent Auto 8.4 % (20-44); Mean Corpuscular HGB Conc 29 gm/dL (32-36); Mean Corpuscular Hemoglobin 28 pg (26-34); Mean Corpuscular Volume 95 fL (80-100); Monocytes Percent Auto 8.6 % (0.0-11.0); Neutrophils Percent Auto 79.4 % (42.0-72.0); Platelet Count* 169 K/uL (140-440); RDW Coefficient of Variation % 21.1 % (11.5-15.5); Red Blood Count 2.89 m/uL (4.30-5.90); White Blood Count* 6.94 K/uL (4.50-11.00)
[2024-06-01 16:49] LABS: Chloride* 95 mmol/L (96-114); Potassium* 3.8 mmol/L (3.6-5.1); Sodium* 131 mmol/L (135-149)
[2024-06-01 16:52] LABS: Anion Gap 7 mEq/L (7-15); Blood Urea Nitrogen* 20 mg/dL (7-30); Carbon Dioxide* 29 mmol/L (20-32); Creatinine* 5.1 mg/dL (0.5-1.5); Est. Creatinine Clearance* 14.72; Estimated Glomerular Filt Rate 12 ml/min; Glucose* 176 mg/dL (60-115); INR 1.46 (0.91-1.10); Prothrombin Time 18.7 Seconds
[2024-06-01 16:56] LABS: Slide Review Reflex No
== END 2024-06-01 20:13 | disposition home or self-care (01) ==
PROVIDERS: Emergency Provider Emergency Medicine Emergency Medical Services; PCP Internal Medicine Nephrology
DX: T82.838A Hemorrhage due to vascular prosthetic devices, implants and grafts, initial encounter (principal); D64.9 Anemia, unspecified; R79.1 Abnormal coagulation profile
CPT/HCPCS: 36415; 80048; 85025; 85610; 93005; 99283; 99284

== ENCOUNTER 2024-06-01 20:10 | Outpatient (CLI) | payer MEDICARE, MEDICAID, SELFPAY ==
--- OUTSIDE RECORDS SUMMARY | 2024-06-04 15:37 | XMS_ITS | Encounter Summary ---
Author Organization [facility] Address [address] [place] [address] Phone Care Team Providers Care Bolt Labeler Name Role Phone Preet Huff MD Primary Care Provider [phone] Reason for Visit * Reason Comments Med Refill Encounter Details Date Type Department Care Team (Late st Contact Info) Description 03/23/2021 Refill [facility] [address] [facility] [address] [place], [place] [id number] María Elena Styles PA [address] [facility] [address] [place] [address] Social History Tobacco Use Types Packs/Day Years [...] on filedocumented in this encounter Care Teams Bolt Labeler Relationship Specialty Start Date End Date Preet Huff MD [address] [place] [phone] PCP - General 10/31/19 documented as of this encounter
--- OUTSIDE RECORDS SUMMARY | 2024-06-04 15:37 | XMS_ITS | Clinical Summary ---
Author Organization [facility] Address [address] [place] [phone] Phone Care Team Providers Care Bread Packer Name Role Phone Preet Huff MD Primary Care Provider Medications Medication Sig Dispensed Refills Start Date End Date Status cholecalciferol (VITAMIN D-3) 1000 units tablet 1 tab qd 04/02/2015 Active B Complex Vitamins (VITAMIN B COMPLEX) tablet 1 tab po daily 12/08/2012 Act bill bisacodyl (DULCOLAX) 5 MG EC tablet 2 tabs po bid 04/02/2015 Active B Epbdcbf-X-Dcmtf Acid (RENAL) 1 MG capsule 1 cap [...] 1982 Influenza Vaccine (#1) 2024 Care Teams Bread Packer Relationship Specialty Start Date End Date Preet Huff MD [address] [place] [address] PCP - General 10/31/19
--- OUTSIDE RECORDS SUMMARY | 2024-06-04 15:38 | XMS_ITS | Clinical Summary ---
Author Organization [place] Address Formerly [facility] [place] [address] Care Team Providers Care Fermentation Engineer Name Role Phone Preet Huff Primary Care Provider [phone] Allergies Active Allergy Reactions Criticality Noted Date [...] mg by mouth every evening Active B Kvyrzeb-Q-Gzqxs Acid (WESCAPS PO) Take 1 capsule by [...] Description 05/23/2024 6:02 PM CDT Anesthesia Event [facility] PeriOp Services [address] [place] [address] Tom Castro MD Larson, Matthew Ray, MD 05/23/2024 6:00 PM CDT - 05/23/2024 7:00 PM CDT Surgery [facility] [address] [place] [address] Lizandro Barron MD Incision and drainage, debridement of scrotal skin and subcutaneous tissues for necrotizing soft tissue infection of the scrotum 05/23/2024 1:14 PM CDT - 05/30/2024 5:21 PM CDT Hospital Encounter [place] [address] [facility] Surgical [address] [place] [address] Vi Hernandez DO Cabrera, Jesus F, MD Supratherapeutic INR; Mita's gangrene of scrotum (H28) Discharge Disposition: Home or Self Care 05/23/2024 Travel 03/08/2024 12:20 PM CDT - 03/08/2024 12:50 PM CDT Surgery [facility] [place] [address] [place] [address] Eileen Earl MD Colonoscopy with polypectomy by cold biopsy forceps 03/06/2024 2:08 PM CDT Anesthesia Event [facility] [address] [place] [address] Nohemy Skinner MD 03/06/2024 1:00 PM CDT - 03/06/2024 2:10 PM [facility] [address] [place] [address] Eileen Earl MD ESOPHAGOGASTRODUODENOSCOPY 03/02/2024 1:54 PM CDT - 03/12/2024 4:36 PM CDT Hospital Encounter [place] [address] [facility] Surgical [address] [place] [address] Raúl Bernard MD Biala, Vivek, MD Hypoglycemia [...] in an abandoned building, in an overnight fci, or couch-surfing.) Patient unable to answer 05/30/2024 [...] file Gender Identity Male 12/05/2017 10:39 AM DE ALCHOLIZER Sexual Orientation Not on file Last Filed [...] Description 07/05/2024 1:15 PM CDT Office Visit [address] [address] Lizandro Barron MD [address] [facility] [address] [place] [address] Health Maintenance Due Date Last [...] this topic Medical Devices Implanted Type Area Jig Mill Operator Device Identifier Shelf Expiration Date Model / Serial / Lot Graft Patch Vasc Xenosure Biologic 0.8x08cm 0.8p8 Implanted:Qty: 1 on 12/16/2017 by Jaxon Saravia MD at [facility] Bone/Tis rocco/Biol ogic Left: Iliac/Fem orals LEMAITRE VASCULAR IN 06/06/2023 0.8P8 / / [id number] Graft Pericardium 8x0.8cm Vascu-Guard Implanted:Qty: 1 on 10/20/2011 at [facility] Right: Arm [employer] 01/16/2016 [id number] / / [id number] Femoral Popliteal Artery Implanted:Qty: 1 on 05/03/2012 by Jaxon Saravia MD at [facility] Right: Groin 12/07/2021 [id number] / [id number] / Description:CADAVER FEMORAL ARTERY RINSED IN A AND B SOLUTION: A SOLUTION LOT #[id number] EXPIRATION DATE 01/09/2014 B SOLUTION LOT #[id number] EXPIRATION DATE 11/15/2013 Graft Propaten Taper [id number] [id number] Implanted:Qty: 1 on 08/09/2012 by Jaxon Saravia MD at [facility] Right: Leg 10/24/2015 [id number] / / [id number] Graft Propaten Taper [id number] Implanted:Qty: 1 on 06/20/2013 by Jaxon Saravia MD at [facility] Left: Groin [employer] 02/07/2017 [id number] / / [id number] Graft Pericardium 8x0.8cm Vascu-Guard Implanted:Qty: 1 on 05/08/2014 by Jaxon Saravia MD at [facility] Left: Leg [employer] 11/26/2018 [id number] / PN# [id number] / [id number] Procol Vascular Bioprosthesis Implanted:Qty: 1 on 07/02/2015 by Jaxon Saravia MD at [facility] Left: Groin 12/16/2018 [id number] -[id number] / [id number] / Procol Vascular Bioprosthesis Implanted:Qty: 1 on 08/13/2015 by Jaxon Saravia MD at [facility] Left: Groin 12/16/2018 [id number] -[id number] / [id number] -[id number] / Graft Vasc Bioprosthesis Procol [id number] Implanted:Qty: 1 on 03/05/2016 by Jaxon Saravia MD at [facility] Left: Leg LEMAITRE VASCULAR IN 02/03/2019 [id number] -[id number] / [id number] / Procedures Procedure [...] CDT LIPID PROFILE STAT 12/07/2017 12:34 PM DE ALCHOLIZER 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 Pathologist [facility] INR 2.26(H) 0.85 - 1.15 05/30/2024 7:20 AM CDT LABORATORY Blood STRUCTURE OF RIGHT HAND / Unknown Venipuncture / Unknown 05/30/2024 6:54 AM CDT 05/30/2024 7:06 AM CDT Antonino Cheek MD LAB - BLOOD ORDERABL ES Performing Organization Address City/[facility]/ZIP Co de Phone Number [facility] [address] Lab (1st floor, no room number) [address] * (ABNORMAL) Basic metabolic panel (05/30/2024 [...] MD LAB - BLOOD ORDERABL ES LABORATORY [facility] Acute [facility] Lab [address] [facility] Lab (1st floor, no room number) [place] [address], [facility] * (ABNORMAL) CBC with platelets (05/30/2024 [...] - BLOOD ORDERABL ES Performing Organization Address City/[facility]/ZIP Co de Phone Number [facility] [address] Lab (1st floor, no room number) [place] [phone] * Extra Green Top Tube (LAB USE ONLY) (05/28/2024 6:07 AM CDT) Only the most recent of2 resultswithin the time period is included. Hold Specimen [facility] 05/28/2024 7:32 AM CDT RH LABORATORY Blood STRUCTURE OF LEFT HAND / Unknown Venipuncture / Unknown 05/28/2024 6:07 AM CDT 05/28/2024 6:17 AM CDT Antonino Cheek MD LAB - BLOOD ORDERABL ES [facility] Acute [facility] Lab [address] Lab (1st floor, no room number) [place] [phone] [place] [address] * Extra Purple Top EDTA (LAB USE ONLY) (05/28/2024 6:07 AM CDT) Only the most recent of2 resultswithin the time period is included. Hold Specimen [facility] 05/28/2024 7:32 AM CDT RH LABORATORY Blood STRUCTURE OF LEFT HAND / Unknown Venipuncture / Unknown 05/28/2024 6:07 AM CDT 05/28/2024 6:17 AM CDT Antonino Cheek MD LAB - BLOOD ORDERABL ES [facility] [address] Lab (1st floor, no room number) [address] * (ABNORMAL) Hemoglobin (05/28/2024 6:07 AM CDT) Only the most recent of24 resultswithin the time period is included. Hemoglobin 7.7(L) 13.3 - 17.7 g/dL 05/28/2024 9:02 AM CDT LABORATORY Blood STRUCTURE OF LEFT HAND / Unknown Venipuncture / Unknown 05/28/2024 6:07 AM CDT 05/28/2024 6:17 AM CDT Dileep Anders MD LAB - BLOOD ORD ERABLES [facility] [address] Lab (1st floor, no room number) [place] [phone] * (ABNORMAL) CBC with platelets and [...] - BLOOD ORDERABL ES Performing Organization Address City/[facility]/ZIP Co de Phone Number LABORATORY [facility] [address] Lab (1st floor, no room number) [place] [phone] * Vancomycin level (05/25/2024 2:04 PM CDT) [...] - BLOOD ORDERABL ES Performing Organization Address [facility] Co de Phone Number LABORATORY [facility] [address] Lab (1st floor, no room number) [place] [address] * Hepatitis B Surface Antibody (05/25/2024 9:25 [...] - BLOOD ORDERABL ES Performing Organization Address City/[facility]/ZIP Co de Phone Number [facility] LABORATORY [facility] [address] [facility], [address] * Hepatitis B surface antigen (05/25/2024 9:25 AM CDT) Pathologist [facility] Hepatitis B Surface Antigen Nonreactive Nonreactive 05/25/2024 2:23 PM CDT [facility] LABORATORY Blood BLOOD SPECIMEN / Unknown Venipuncture / Unknown 05/25/2024 9:25 AM CDT 05/25/2024 10:13 AM CDT Jose Enrique Naylor MD LAB - BLOOD ORDERABL ES Performing Organization Address City/[facility] de Phone Number U LABORATORY [facility] [address] [facility], [address] * (ABNORMAL) Comprehensive metabolic panel (05/24/2024 [...] MD LAB - BLOOD ORDERABL ES LABORATORY [facility] [address] [facility] Lab (1st floor, no room number) [place] [address], [facility] * (ABNORMAL) Tissue Aerobic Bacterial Culture [...] - MICRO GENERAL ORDERABLES [facility] IDD LABORATORY [facility] Inf. Diseases Diag. Lab [address] [facility], Room [place] [address] [place] [address] * (ABNORMAL) Gram Stain (05/23/2024 6:42 PM [...] - MICRO GENERAL ORDERABLES [facility] LABORATORY [facility] Inf. Diseases Diag. Lab [address] [facility], Room [address] [address] * Anaerobic Bacterial Culture Routine (05/23/2024 6:42 PM CDT) Culture 4+ Mixed Aerobic and Anaerobic dev JOJO 05/25/2024 2:01 PM CDT [facility] IDD LABORATORY Comment:No predominant organ ism Tissue SCROTAL STRUCTURE / Unknown Non-blood Collection / Unknown 05/23/2024 6:42 PM CDT 05/23/2024 6:46 PM CDT Lizandro Barron MD LAB - MICRO GENERAL ORDERABLES [facility] IDD LABORATORY [facility] Inf. Diseases Diag. Lab [address] [facility], [address] [place] [address], [facility] * ANE AIRWAY ETT PERFORMABLE (05/23/2024 6:21 PM CDT) Narrative Donnell Ramos APRN METER AND REGULATOR SHOP SUPERVISOR - 05/23/2024 6:21 PM CDT Donnell Ramos APRN METER AND REGULATOR SHOP SUPERVISOR ? 05/23/2024 ??6:33 PM Airway ? Patient location during procedure: OR ? Procedure Start/Stop Times: 05/23/2024 6:21 PM Staff - ? METER AND REGULATOR SHOP SUPERVISOR: Yasemin Almaguer APRN CRNA ? Performed By: [...] Time: 05/23/2024 6:21 PM Tom Castro MD MA ANESTHESIA * EKG 12-lead, tracing only (05/23/2024 5:08 PM CDT) Systolic Blood Pressure mmHg RADIOLOGY RESULTS Diastolic Blood Pressure mmHg RADIOLOGY RESULTS Ventricular Rate 63 BPM RAD IOLOGY RESULTS Atrial Rate 63 BPM RADIOLOG Y RESULTS MA Interval 222 ms RADIOLOG Y RESULTS QRS Duration 102 ms RADIOLO GY RESULTS QT 448 ms RADIOLOGY RESULTS QTc 458 ms RADIOLOGY RESULTS P [place] 54 degrees RADIOLOGY RESULTS R AXIS -5 degrees RADIOLOGY RESULTS T [place] 24 degrees RADIOLOGY RESULTS Interpretation ECG Sinus rhythm with 1st degree A-V block Septal infarct , age undetermined Abnormal ECG When compared with ECG of 02-Mar-2024 14:00, Septal infarct is now Present No significant change was found Confirmed by - EMERGENCY ROOM, PHYSICIAN ([id number]), film editor supervisor LIZANDRO ZABALA ([id number]) on 05/24/2024 6:44:53 AM RADIOLOGY RESULTS 05/23/2024 [...] 2:35 PM. MIKE SANTANA MD SYSTEM ID: ??[id number] Narrative 05/23/2024 2:[address] ABDOMEN [...] veins which are not included in the wmhpu-pr-aelc. MUSCULOSKELETAL: Stable degenerative changes at L4-L5 with [...] veins which are not included in the [id number]-ha-wxdh. 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 No destructive lesions in the bones. IMPRESSION: 1. 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 2. Other chronic findings as discussed above. Findings were discussed with Dr. Kenna Coe at 2:35 PM. MIKE SANTANA MD SYSTEM ID: [id number] Vi Coe DO IMG CT ORDERABLE S * Adult Type and Screen (05/23/2024 2:07 PM CDT) Only the most recent of3 resultswithin the time period is included. ABO/RH(D) O POS 05/23/2024 1:37 PM CDT RH BLOOD BANK Antibody Screen Negative Negative 05/23/2024 1:37 PM CDT RH BLOOD BANK SPECIMEN EXPIRATION DATE [id number] 05/23/2024 1:37 PM CDT RH BLOOD BANK Blood BLOOD SPECIMEN / Unknown Venipuncture / Unknown 05/23/2024 2:07 PM CDT 05/23/2024 2:10 PM CDT Vi Coe DO LAB - BLOOD BANK TEST ORDER Performing Organization Address [facility]/ZIP Co de Phone Number BLOOD BANK [address] [place] [address] * Lactic acid whole blood (05/23/2024 1:50 PM CDT) Lactic Acid 0.9 0.7 - 2.0 mmol/L 05/23/2024 1:57 PM CDT LABORATORY Blood BLOOD SPECIMEN / Unknown Venipuncture / Unknown 05/23/2024 1:50 PM CDT 05/23/2024 1:54 PM CDT Vi Coe DO LAB - BLOOD ORDE RABLES [facility] Acute [facility] Lab [address] [facility] Lab (1st floor, no room number) [place] [address] * Blood Culture Peripheral Blood (05/23/2024 1:50 PM CDT) Culture No Growth 05/28/2024 4:06 PM CDT UU IDD LABORATORY Blood BLOOD SPECIMEN / Unknown Venipuncture / Unknown 05/23/2024 1:50 PM CDT 05/23/2024 1:53 PM CDT Vi Coe DO LAB - MICRO GENE RAL ORDERABLES UU IDD LABORATORY [facility] Inf. Diseases Diag. Lab [address] [facility], [address] [place] [address], [facility] * (ABNORMAL) Renal panel (03/12/2024 6:06 [...] Earl MD LAB - BLOOD ORDERA BLES [facility] Lab [address] Lab (1st floor, no room number) [place] [address] * Glucose (03/12/2024 6:06 AM CDT) Only the most recent of2 resultswithin the time period is included. Glucose 77 70 - 99 mg/dL 03/12/2024 6:35 AM CDT RH LABORATORY Blood STRUCTURE OF RIGHT UPPER LIMB / Unknown Venipuncture / Unknown 03/12/2024 6:06 AM CDT 03/12/2024 6:10 AM CDT Ron Tripathi MD LAB - BLOOD ORDERABL ES LABORATORY [facility] Lab [address] Lab (1st floor, no room number) [place] [address] * XR Chest Port 1 View (03/11/2024 3:25 AM CDT) Anatomical Region Laterality Modality Chest Digital Radiogra phy 03/11/2024 3:25 AM CDT Impressions 03/11/2024 3:30 AM CDT IMPRESSION: Normal heart size and pulmonary vascularity. Lungs clear. No pneumothorax. Minimal fluid or thickening along the right fissure. Narrative 03/11/2024 3:30 AM CDT EXAM: XR CHEST PORT 1 VIEW LOCATION: [facility] DATE: 03/11/2024 INDICATION: Shortness of breath COMPARISON: None. Procedure Note David Díaz MD - 03/11/2024 EXAM: XR CHEST PORT 1 VIEW LOCATION: [facility] DATE: 03/11/2024 INDICATION: Shortness of [...] Blood Cells RH BLOOD BANK Product Code M9796U31 RH BLOO D BANK Unit Status Transfused RH BLOO D BANK Unit Number [id number] RH B LOOD BANK CROSSMATCH Compatible RH BLOOD BANK CODING SYSTEM [id number] RH BLO OD BANK ISSUE DATE AND TIME [id number] RH BLOOD BANK UNIT ABO/RH O+ RH BLOOD BANK UNIT TYPE ISBT 5100 RH BL OOD BANK 03/10/2024 6:37 PM CDT Eileen Earl MD BLOOD BANK PRODUCT ORDERABLES RH [place]OD [place] [address], [facility] * Morphology Tracking (03/09/2024 9:12 AM CDT) Blood VENOUS LINE / Unknown Venipuncture / Unknown 03/09/2024 9:12 AM CDT 03/09/2024 9:26 AM CDT Antonino Cheek MD LAB - BLOOD ORDERABL ES Performing Organization Address City/[facility]/ZIP Co de Phone Number [facility] [address] Lab (1st floor, no room number) [place] [phone] [place] [address] * Lactate Dehydrogenase (03/09/2024 9:12 AM CDT) Lactate Dehydrogenase 226 0 - 250 U/L 03/09/2024 9:59 AM CDT LABORATORY Blood VENOUS LINE / Unknown Venipuncture / Unknown 03/09/2024 9:12 AM CDT 03/09/2024 9:26 AM CDT Antonino Cheek MD LAB - BLOOD ORDERABL ES Performing Organization Address [facility] Co de Phone Number [facility] [address] Lab (1st floor, no room number) [place] [phone] [place] [address] * (ABNORMAL) Reticulocyte count (03/09/2024 9:12 AM CDT) % Reticulocyte 2.8(H) 0.5 - 2.0 % 03/09/2024 9:33 AM CDT LABORATORY Absolute Reticulocyte 0.072 0.025 - 0.095 10e6/uL 03/09/2024 9:33 AM CDT LABORATORY Blood VENOUS LINE / Unknown Venipuncture / Unknown 03/09/2024 9:12 AM CDT 03/09/2024 9:26 AM CDT Antonino Cheek MD LAB - BLOOD ORDERABL ES Performing Organization Address City/[facility]/ZIP Co de Phone Number [facility] [address] Lab (1st floor, no room number) [place] [phone] [place] [address] * Haptoglobin (03/09/2024 9:12 AM CDT) Haptoglobin 127 30 - 200 mg/dL 03/10/2024 1:23 AM CDT UU LABORATORY Blood VENOUS LINE / Unknown Venipuncture / Unknown 03/09/2024 9:12 AM CDT 03/09/2024 9:26 AM CDT Antonino Cheek MD LAB - BLOOD ORDERABL ES [facility] LABORATORY [facility] [address] [facility], [address] [place] [address] * Bld morphology pathology review (03/09/2024 9:12 AM CDT) Final Diagnosis Peripheral blood for morphology: -Moderate normochromic, normocytic anemia without evidence of red cell regeneration; no morphologic or laboratory features of hemolysis detected -Slight mature neutrophilia without morphologic abnormalities 03/13/2024 10:17 AM T [facility] PATH[facility] Comment Review of recent laboratory data notes normal LDH and haptoglobin. The history of GI bleeding and end-stage renal disease on hemodialysis are noted. Both conditions would contribute to the anemia present. 03/13/2024 10:17 AM T [facility] Clinical Information Looking for signs of hemolysis 03/13/2024 10:17 AM T [facility] Peripheral Smear ERYTHROCYTES: [...] 50: Marked thrombocytopenia 03/13/2024 10:17 AM CDT [facility] Performing Labs The technical component of this testing was completed at [facility], [facility] 03/13/2024 10:17 AM CDT [facility] Blood VENOUS LINE / Unknown [...] for interpretation. Antonino DEAN - DAVID VALENCIA [facility] PATHOLOG[facility] Pathology Lab [address] 1[address] Floor, [address] [place] [address] * Bilirubin Direct and Total (03/09/2024 9:12 AM CDT) Bilirubin Direct 0.22 0.00 - 0.30 mg/dL 03/09/2024 9:59 AM CDT RH LABORATORY Bilirubin Total 0.5 <=1.2 mg/dL 03/09/2024 9:59 AM CDT RH LABORATORY Blood VENOUS LINE / Unknown Venipuncture / Unknown 03/09/2024 9:12 AM CDT 03/09/2024 9:26 AM CDT Antonino Cheek MD LAB - BLOOD ORDERABL ES [facility] Lab [address] Lab (1st floor, no room number) [place] [address], [facility] * Surgical Pathology Exam (03/08/2024 1:26 PM CDT) Case Report Surgical Pathology Report ? Case: [id number] ? Authorizing Provider: ??Eileen Earl MD ?Collected: ? 03/08/2024 01:26 PM ? Ordering Location: ? [facility] ?Received: ?03/08/2024 02:01 PM ? [facility] [place] ? Pathologist: ? Jae Cardona MD ? [...] component of this testing was completed at [facility]. Stain controls for all stains resulted within this report have been reviewed and show appropriate reactivity. 03/09/2024 10:13 AM CDT LABORATORY Case Images 03/09/2024 10:13 AM CDT LABORATORY Polyp RECTUM PART / Unknown 03/08/2024 1:26 PM CDT 03/08/2024 2:01 PM CDT Eileen DEAN - DAVID [facility] [address] [facility], no room number) [place] [address] * COLONOSCOPY (03/08/2024 1:04 PM CDT) COLONOSCOPY [facility] Patient Name: Herminio Victor ? [...] continuously. The ?Olympus Adult Colonoscope, Model # CF-[id number], ?Censitrac # [id number] was introduced through the ?anus and advanced [...] Note Initiated On: 03/08/2024 1:04 PM MRN: ?[id number] Procedure Date: ? 03/08/2024 1:04:50 PM Scope [...] US UPPER EXTREMITY VENOUS DUPLEX RIGHT LOCATION: [facility] DATE: 03/07/2024 INDICATION: Swelling, looking [...] US UPPER EXTREMITY VENOUS DUPLEX RIGHT LOCATION: [facility] DATE: 03/07/2024 INDICATION: Swelling, looking [...] Patricio Bocanegra RN ? 03/07/2024 ??1:41 PM [facility] Single Lumen Midline Placement Date/Time: 03/07/2024 [...] procedure a time out was called ?? Lookout Protocol: the Joint Commission Lookout Protocol was followed ?? Preparation: Patient was [...] size: 4 Fr Brand: Bard Lot number: [id number] Placement method: venipuncture, MST and ultrasound Number [...] MD LAB - BLOOD ORDERABL ES LABORATORY [facility] [address] [facility] (1st floor, no room number) [place] [address] * UPPER GI ENDOSCOPY (03/06/2024 1:21 PM CDT) [facility] Upper GI Endoscopy [facility] Patient Name: Herminio Victor ? Procedure Date: 03/06/2024 1:21 PM ? Date of : 1965 ?Admit Type: Inpatient Age: 58 ? Gender: Male Attending MD: EILEEN ERAL MD, ??Total Sedation Time: MAC sedation Instrument [...] ?Olympus Gastroscope, Model # [id number]-H190, Censitrac # ?[id number] was introduced through the mouth, and ?advanced [...] Note Initiated On: 03/06/2024 1:21 PM MRN: ?[id number] Procedure Date: ? 03/06/2024 1:21:29 PM Total [...] Blood Cells RH BLOOD BANK Product Code [id number] RH BLOO D BANK Unit Status Transfused RH BLOO D BANK Unit Number [id number] RH B LOOD BANK CROSSMATCH Compatible RH BLOOD BANK CODING SYSTEM [id number] RH BLO OD BANK ISSUE DATE AND TIME [id number] RH BLOOD BANK UNIT ABO/RH O+ RH BLOOD BANK UNIT TYPE ISBT 5100 RH BL OOD BANK 03/06/2024 7:50 AM CDT Antonino Cheek MD BLOOD BANK PRODUCT O RDERABLES BLOOD BANK [address] [place] [address] * (ABNORMAL) Potassium (03/04/2024 6:29 PM CDT) Potassium 5.6(H) 3.4 - 5.3 mmol/L 03/04/2024 7:00 PM CDT LABORATORY Blood STRUCTURE OF LEFT HAND / Unknown Venipuncture / Unknown 03/04/2024 6:29 PM CDT 03/04/2024 6:37 PM CDT Job Her MD LAB - BLOOD ORDERABL ES Performing Organization Address City/[facility]/ZIP Co de Phone Number LABORATORY [facility] Lab [address] [employer] Lab (1st floor, no room number) [place] [address] * Cortisol (03/04/2024 6:45 AM CDT) Cortisol [...] - BLOOD ORDER NADIA LABORATORY [facility] [address] [facility], [address] [place] [address] * (ABNORMAL) Occult blood stool (02/24/2024 11:31 AM CDT) Occult Blood Positive(A ) Negative JOJO 02/24/2024 11:40 AM CDT LABORATORY Stool RECTAL CONTENTS / Unknown Non-blood Collection / Unknown 02/24/2024 11:31 AM CDT 02/24/2024 11:38 AM CDT Jae Noel MD LAB - STOOLS ORDERAB LES LABORATORY [facility] Lab [address] Lab (1st floor, no room number) [place] [address] * Hepatitis C (HIM External Result) (01/04/2022 12:00 PM CDT) Hep C HIM See Scanned Document EXTERNAL LAB Comment:Nonreactive 01/04/2022 12:0 0 PM CDT Narrative EXTERNAL LAB - 01/04/2022 12:00 PM CDT LAB RESULT [facility] [address] [place] [address] Provider Outside LAB - HIM EXTERNAL R ESULT Performing Organization Address City/[facility]/ZIP Co de Phone Number EXTERNAL LAB External Lab * (ABNORMAL) Lipid panel (12/07/2017 12:34 PM DE ALCHOLIZER) Cholesterol 115 <200 mg/dL 12/07/2017 1:27 PM DE ALCHOLIZER [facility] Triglycerides 84 <150 mg/dL 12/07/2017 1:[address] [facility] HDL Cholesterol 37(L) >39 mg/dL 8 1:[address] [facility] LDL Cholesterol Calculated 61 <100 mg/dL 12/07/2017 1:[address] [facility] Comment:Desirable: <100 mg/d l Non HDL Cholesterol 78 <130 mg/dL 12/07/2017 1:[address] [facility] Blood specimen (specimen) 12/07/2017 12:34 PM DE ALCHOLIZER 12/07/2017 12:58 PM DE ALCHOLIZER Michele Fuentes MD LAB - BLOOD ORD ERABLES Performing Organization Address City/[facility]/ZIP Co de Phone Number [facility] [address] [place] [address], [facility] [phone] from Last 3 Months or Most Recently Relevant to Health Maintenance Advance Directives For more information, please contact: [phone] * Full Code (Latest Code Status on [...] 12:25 PM 01/25/2019 11:45 AM Care Teams Fermentation Engineer Relationship Specialty Start Date End Date Preet Huff PCP - General 06/24/11
--- OUTSIDE RECORDS SUMMARY | 2024-06-04 15:38 | XMS_ITS | Encounter Summary ---
Author Organization [facility] reyes Address [address] [place] [id number] Phone Care Team Providers Care Ranch Helper Name Role Phone Preet Huff MD Primary Care Provider Reason for Visit * Reason Comments Med Refill Encounter Details Date Type Department Care Team (Late st Contact Info) Description 02/12/2021 Refill [facility] [address] [facility] [address] [place], [place] [address] María Elena Styles PA [address] [place] [address] Social History Tobacco Use Types Packs/Day Years Used Date Smoking Tobacco: Never Assessed Sex and Gender Information Value Date Recorded Sex Assigned at Not on file Gender Identity Not on file Sexual Orientation Not on file documented as of this encounter Plan of Treatment Not on file documented as of this encounter Visit Diagnoses Not on filedocumented in this encounter Care Teams Ranch Helper Relationship Specialty Start Date End Date Preet Huff MD [address] [place] [phone] PCP - General 10/31/19 documented as of this encounter
--- OUTSIDE RECORDS SUMMARY | 2024-06-04 15:38 | XMS_ITS | Clinical Summary ---
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 Secondary hyperparathyroidism [...] Department Care Team Description 05/21/2024 Nurse Triage [facility] [address] [place] [address] Preet Huff MD Testicle Pain 03/20/2024 11:45 AM CDT Office Visit [facility] [address] [place] [address] Preet Huff MD Hospital F/U ([facility], 02/24/2024 - 02/26/2024, 03/02/2024 - 03/12/2024, GI [...] Body Mass Index 29.24 11/08/2023 2:26 PM [facility] Plan of Treatment Upcoming Encounters Date Type Department Care Team (Late st Contact Info) Description 06/05/2024 11:00 AM CDT Ancillary Procedure [facility] [address] [place] [phone] 06/07/2024 2:05 PM CDT Office Visit [facility] [address] [place] [address] Preet Huff MD [address] [place] [address] 06/07/2024 2:30 PM CDT Office Visit [facility] [address] [place] [address] Lizandro Singh MD [address] [place] [address] Health Maintenance Due Date Last Done Comments [...] Completed 10/21/2009 Medical Devices Implanted Type Area Clothing Room Supervisor Device Identifier Shelf Expiration Date Model / Serial / Lot Cath Peritoneal Cvd 62cm - [id number] Implanted:Qty: 1 on 10/31/2009 at [facility] N/A: Abdomen STIVEN 05/10/2014 [id number] 10 # / / [id number] Procedures Procedure Name Priority Date/Time Associated Diagnosis Comments LIPID PANEL W REFLEX MEASURED LDL Routine 11/08/2023 3:05 PM [facility] Mixed hyperlipidemia COLONOSCOPY SCREENING Routine 09/24/2013 12:00 AM [facility] Colon cancer screening ANTI HIV 1/2 Timed 03/04/2009 10:05 AM CDT Pre-Transplant Evaluation for End Stage Renal Disease ANTI HCV Timed 03/04/2009 10:05 AM CDT Pre-Transplant Evaluation for End Stage Renal Disease from Last 3 Months or Most Recently Relevant to Health Maintenance Results * (ABNORMAL) LIPID PANEL W REFLEX MEASURED LDL (11/08/2023 3:05 PM [facility]) CHOLESTEROL,TOTAL 90(L) 100 - 199 mg/dL 11/09/2023 10:41 AM [facility] Comment: Cholesterol, Total Reference Ranges Desirable <200 mg/dL Borderline 200-239 mg/dL High >=240 mg/dL TRIGLYCERIDES 104 <150 mg/dL 11/09/2023 10:41 AM [facility] HDL CHOLESTEROL 30(L) >40 mg/dL 10:41 AM [facility] NON-HDL CHOLESTEROL 60 <145 mg/dl 11/09/2023 10:41 AM [facility] CHOL/HDL RATIO 3.00 <4.50 11/09/2023 10:41 AM [facility] LDL CHOLESTEROL 39 <=130 mg/dL 11/09/2023 10:41 AM [facility] VLDL CHOLESTEROL 21 <=30 mg/dL 11/09/2023 10:41 AM [facility] PROVIDER ORDERED STATUS RANDOM 11/09/2023 10:41 AM [facility] Blood BLOOD SPECIMEN / Unknown Butterfly / Unknown 11/08/2023 3:05 PM [facility] 11/08/2023 3:08 PM [facility] Preet Huff MD CHEMISTRY [facility] [address] [place] [address], * COLONOSCOPY SCREENING (09/24/2013 12:00 AM [facility]) Narrative 09/24/2013 12:00 AM [facility] Procedure Note Scanner - 09/24/2013 12:00 AM CST Preet Huff MD GI PROCEDURE O RD * ANTI HCV (03/04/2009 10:05 AM CDT) ANTI HCV Non-reacti ve [facility] Blood specimen (specimen) BLOOD SPECIMEN / Unknown 03/04/2009 10:05 AM CDT 03/04/2009 9:57 AM CDT Alfredo Juarez MD SEND OUTS [facility] [place]NAL ZIP [address] [id number] * ANTI HIV 1/2 (03/04/2009 10:05 AM CDT) ANTI HIV 1/2 Non-reacti ve [facility] Blood specimen (specimen) BLOOD SPECIMEN / Unknown 03/04/2009 10:05 AM CDT 03/04/2009 9:57 AM CDT Alfredo Juarez MD [facility] [place]NAL ZIP [address] [place] [id number] from Last 3 Months or Most Recently Relevant to Health Maintenance Advance Directives Documents on File Type Date Recorded Patient Door Person Expl anation Power of Child Protective Services Social Worker 09/04/2014 12:00 AM 07/2009 * Full [...] 5:57 PM 03/16/2009 5:32 PM Care Teams Race Relations Professor Relationship Specialty Start Date End Date Preet Huff MD [address] [place] [address] PCP - General 12/02/06
--- OUTSIDE RECORDS SUMMARY | 2024-06-04 15:39 | XMS_ITS | Referral Summary ---
Author Organization [facility] Address [address] [place] [address] Care Team Providers Care Atmospheric Scientist Name Role Phone Preet Huff Hans Primary Care Provider [phone] Encounters Date Type Department Care Team Description 05/23/2024 1:14 PM CDT - 05/30/2024 5:21 PM CDT Hospital Encounter [place] [address] Medical Surgical [address] [place] [address] Vi Hernandez DO Cabrera, Jesus F, MD Supratherapeutic INR; Mita's gangrene of scrotum (H28) Discharge Disposition: Home or Self Care 05/23/2024 6:02 PM CDT Anesthesia Event [facility] PeriOp Services [address] [place] [address] Tom Castro MD Larson, Matthew Ray, MD 05/23/2024 6:00 PM CDT - 05/23/2024 7:00 PM CDT Surgery [facility] [address] [place] [address] Lizandro Barron MD Incision and drainage, debridement of scrotal skin and subcutaneous tissues for necrotizing soft tissue infection of the scrotum 05/23/2024 Travel 03/02/2024 1:54 PM CDT - 03/12/2024 4:36 PM CDT Hospital Encounter [place] [address] Medical Surgical [address] [place] [address] Raúl Bernard MD Biala, Vivek, MD Hypoglycemia (Primary Dx); Anemia, unspecified type; Black stool; Gastrointestinal hemorrhage, unspecified gastrointestinal hemorrhage type Discharge Disposition: Home-Health Care [facility] 03/08/2024 12:20 PM CDT - 03/08/2024 12:[address] [facility] [place] [address] [place] [address] Eileen Earl MD Colonoscopy with polypectomy by cold biopsy forceps 03/06/2024 2:08 PM CDT Anesthesia Event [facility] [address] [place] [address] Nohemy Skinner MD 03/06/2024 1:00 PM CDT - 03/06/2024 2:10 PM CDT Surgery [facility] [address] [place] [address] Eileen Earl MD ESOPHAGOGASTRODUODENOSCOPY from Last 3 [...] mg by mouth every evening Active B Eqqfydk-I-Amyiq Acid (WESCAPS PO) Take 1 capsule by [...] in an abandoned building, in an overnight alf, or couch-surfing.) Patient unable to answer 05/30/2024 [...] file Gender Identity Male 12/05/2017 10:39 AM CLIENT OPERATIONS MANAGER Sexual Orientation Not on file Last Filed [...] Description 07/05/2024 1:15 PM CDT Office Visit [address] [address] Lizandro Barron MD [address] [id number] Medical Devices Implanted Type Area Councilor Device Identifier Shelf Expiration Date Model / Serial / Lot Graft Patch Vasc Xenosure Biologic 0.8x08cm 0.8p8 Implanted:Qty: 1 on 12/16/2017 by Jaxon Saravia MD at [facility] Bone/Tis rocco/Biol ogic Left: Iliac/Fem orals L[employer] VASC[employer] IN 06/06/2023 0.8P8 / / [id number] Graft Pericardium 8x0.8cm Vascu-Guard Implanted:Qty: 1 on 10/20/2011 at [facility] Right: Arm [employer] 01/16/2016 [id number] / / [id number] Femoral Popliteal Artery Implanted:Qty: 1 on 05/03/2012 by Jaxon Saravia MD at [facility] Right: Groin 12/07/2021 [id number] / [id number] / Description:CADAVER FEMORAL ARTERY RINSED IN A AND B SOLUTION: A SOLUTION LOT #[id number] EXPIRATION DATE 01/09/2014 B SOLUTION LOT #[id number] EXPIRATION DATE 11/15/2013 Graft Propaten Taper 4-3ffv67tz [id number] Implanted:Qty: 1 on 08/09/2012 by Jaxon Saravia MD at [facility] Right: Leg 10/24/2015 [id number] / / [id number] Graft Propaten Taper 4-7mlr06on [id number] Implanted:Qty: 1 on 06/20/2013 by Jaxon Saravia MD at [facility] Left: Groin [employer] 02/07/2017 [id number] / / [id number] Graft Pericardium 8x0.8cm Vascu-Guard Implanted:Qty: 1 on 05/08/2014 by Jaxon Saravia MD at [facility] Left: Leg [employer] 11/26/2018 [id number] / PN# [id number] / [id number] Procol Vascular Bioprosthesis Implanted:Qty: 1 on 07/02/2015 by Jaxon Saravia MD at [facility] Left: Groin 12/16/2018 [id number] -[id number] / [id number] / Procol Vascular Bioprosthesis Implanted:Qty: 1 on 08/13/2015 by Jaxon Saravia MD at [facility] Left: Groin 12/16/2018 [id number] -[id number] / [id number] / Graft Vasc Bioprosthesis Procol [id number] Implanted:Qty: 1 on 03/05/2016 by Jaxon Saravia MD at [facility] Left: Leg L[employer] VASC[employer] IN 02/03/2019 [id number] -[id number] / [id number] / Procedures Procedure [...] CDT LIPID PROFILE STAT 12/07/2017 12:34 PM CLIENT OPERATIONS MANAGER 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 INR 2.26(H) 0.85 - 1.15 05/30/2024 7:20 AM CDT LABORATORY Blood STRUCTURE OF RIGHT HAND / Unknown Venipuncture / Unknown 05/30/2024 6:54 AM CDT 05/30/2024 7:06 AM CDT Antonino Cheek MD LAB - BLOOD ORDERABL ES Performing Organization Address [facility]/ZIP Co de Phone Number LABORATORY [facility] Care Lab [address] Lab (1st floor, no room number) [address] * (ABNORMAL) Basic metabolic panel (05/30/2024 [...] LAB - BLOOD ORDERABL ES RH LABORATORY [facility] Acute Care Lab [address] [facility] Lab (1st floor, no room number) [place] [address] * (ABNORMAL) CBC with platelets (05/30/2024 [...] - BLOOD ORDERABL ES Performing Organization Address City/[facility]/ZIP Co de Phone Number LABORATORY [facility] Acute Care Lab [address] Lab (1st floor, no room number) [place] [phone] * Extra Green Top Tube (LAB USE ONLY) (05/28/2024 6:07 AM CDT) Only the most recent of2 resultswithin the time period is included. Hold Specimen [facility] 05/28/2024 7:32 AM CDT RH LABORATORY Blood STRUCTURE OF LEFT HAND / Unknown Venipuncture / Unknown 05/28/2024 6:07 AM CDT 05/28/2024 6:17 AM CDT Antonino Cheek MD LAB - BLOOD ORDERABL ES Performing Organization Address City/[facility]/ZIP Co de Phone Number LABORATORY [facility] Care Lab [address] Lab (1st floor, no room number) [place] [address] * Extra Purple Top EDTA (LAB USE ONLY) (05/28/2024 6:07 AM CDT) Only the most recent of2 resultswithin the time period is included. Hold Specimen [facility] 05/28/2024 7:32 AM CDT RH LABORATORY Blood STRUCTURE OF LEFT HAND / Unknown Venipuncture / Unknown 05/28/2024 6:07 AM CDT 05/28/2024 6:17 AM CDT Antonino Cheek MD LAB - BLOOD ORDERABL ES [facility] Care Lab [address] Lab (1st floor, no room number) [address] [place] [address] * (ABNORMAL) Hemoglobin (05/28/2024 6:07 AM CDT) Only the most recent of24 resultswithin the time period is included. Hemoglobin 7.7(L) 13.3 - 17.7 g/dL 05/28/2024 9:02 AM CDT RH LABORATORY Blood STRUCTURE OF LEFT HAND / Unknown Venipuncture / Unknown 05/28/2024 6:07 AM CDT 05/28/2024 6:17 AM CDT Dileep Anders MD LAB - BLOOD ORD ERABLES Performing Organization Address [facility]/ZIP Co de Phone Number [facility] Lab [address] Lab (1st floor, no room number) [address] [place] [address] * (ABNORMAL) CBC with platelets and differential [...] LAB - BLOOD ORDERABL ES RH LABORATORY [facility] Acute Care Lab [address] Lab (1st floor, no room number) [place] [address] * Vancomycin level (05/25/2024 2:04 PM CDT) Vancomycin 11.9 ug/mL 05/25/2024 3:28 PM CDT LABORATORY Comment: Traditional Dosing Therapeutic Range: Trough 10-15 ug/mL Peak 20-40 ug/mL Critical: Greater than 25.0 ug/mL Blood STRUCTURE OF RIGHT UPPER LIMB / Unknown Venipuncture / Unknown 05/25/2024 2:04 PM CDT 05/25/2024 2:07 PM CDT Antonino Cheek MD LAB - BLOOD ORDERABL ES LABORATORY [facility] Acute Care Lab [address] Lab (1st floor, no room number) [place] [address] * Hepatitis B Surface Antibody (05/25/2024 [...] ORDERABL ES [facility] LABORATORY [facility] [address] [facility], [address] [place] [address] * Hepatitis B surface antigen (05/25/2024 9:25 AM CDT) Hepatitis B Surface Antigen Nonreactive Nonreactive 05/25/2024 2:23 PM CDT [facility] LABORATORY Blood BLOOD SPECIMEN / Unknown Venipuncture / Unknown 05/25/2024 9:25 AM CDT 05/25/2024 10:13 AM CDT Jose Enrique Naylor MD LAB - BLOOD ORDERABL ES [facility] LABORATORY [facility] [address] [facility], [address] [place] [address] * (ABNORMAL) Comprehensive metabolic panel (05/24/2024 [...] MD LAB - BLOOD ORDERABL ES LABORATORY [facility] Acute Care Lab [address] [facility] Lab (1st floor, no room number) [place] [address], [facility] * (ABNORMAL) Tissue Aerobic Bacterial Culture [...] [facility] Inf. Diseases Diag. Lab [address] [facility], [address] [place] [address], [facility] * (ABNORMAL) Gram Stain (05/23/2024 [...] [facility] Inf[facility] Lab [address] [facility], [address] * Anaerobic Bacterial Culture Routine (05/23/2024 6:42 PM CDT) Pathologist [facility] Culture 4+ Mixed Aerobic and Anaerobic dev JOJO 05/25/2024 2:01 PM CDT [facility] IDD LABORATORY Comment:No predominant organ ism Tissue SCROTAL STRUCTURE / Unknown Non-blood Collection / Unknown 05/23/2024 6:42 PM CDT 05/23/2024 6:46 PM CDT Lizandro Barron MD LAB - MICRO GENERAL ORDERABLES [facility] IDD LABORATORY [facility] Inf. Diseases Diag. Lab [address] [facility], [address] * ANE AIRWAY ETT PERFORMABLE (05/23/2024 6:21 PM CDT) Narrative Donnell Ramos APRN HOSPICE ADMITTING CLERK - 05/23/2024 6:21 PM CDT Stock DonnellLINDA jiangN HOSPICE ADMITTING CLERK ? 05/23/2024 ??6:33 PM Airway ? Patient location during procedure: OR ? Procedure Start/Stop Times: 05/23/2024 6:21 PM Staff - ? HOSPICE ADMITTING CLERK: Yasemin Almaguer, JUDITH HOSPICE ADMITTING CLERK ? Performed By: CRNAIndications and Patient Condition [...] Time: 05/23/2024 6:21 PM Tom Castro MD [place] ANESTHESIA * EKG 12-lead, tracing only (05/23/2024 5:08 PM CDT) Systolic Blood Pressure mmHg RADIOLOGY RESULTS Diastolic Blood Pressure mmHg RADIOLOGY RESULTS Ventricular Rate 63 BPM RAD IOLOGY RESULTS Atrial Rate 63 BPM RADIOLOG Y RESULTS FL Interval 222 ms RADIOLOG Y RESULTS QRS Duration 102 ms RADIOLO GY RESULTS QT 448 ms RADIOLOGY RESULTS QTc 458 ms RADIOLOGY RESULTS P Swoope 54 degrees RADIOLOGY RESULTS R AXIS -5 degrees RADIOLOGY RESULTS T Swoope 24 degrees RADIOLOGY RESULTS Interpretation ECG Sinus rhythm with 1st degree A-V block Septal infarct , age undetermined Abnormal ECG When compared with ECG of 02-Mar-2024 14:00, Septal infarct is now Present No significant change was found Confirmed by - EMERGENCY ROOM, PHYSICIAN ([place]), newspaper or periodical editor LIZANDRO ZABALA ([id number]) on 05/24/2024 6:44:53 AM RADIOLOGY RESULTS 05/23/2024 [...] 2:35 PM. MIKE SANTANA MD SYSTEM ID: ??[id number] Narrative 05/23/2024 2:[address] ABDOMEN [...] veins which are not included in the alzzr-at-emfk. MUSCULOSKELETAL: Stable degenerative changes at L4-L5 with [...] veins which are not included in the wxmhr-jr-nwpr. 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 No destructive lesions in the bones. IMPRESSION: 1. 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 2. Other chronic findings as discussed above. Findings were discussed with Dr. Kenna Coe at 2:35 PM. MIKE SANTANA MD SYSTEM ID: [id number] Vi Coe DO IMG CT ORDERABLE S * Adult Type and Screen (05/23/2024 2:07 PM CDT) Only the most recent of3 resultswithin the time period is included. ABO/RH(D) O POS 05/23/2024 1:37 PM CDT RH BLOOD BANK Antibody Screen Negative Negative 05/23/2024 1:37 PM CDT RH BLOOD BANK SPECIMEN EXPIRATION DATE [id number] 05/23/2024 1:37 PM CDT RH BLOOD BANK Blood BLOOD SPECIMEN / Unknown Venipuncture / Unknown 05/23/2024 2:07 PM CDT 05/23/2024 2:10 PM CDT Vi Coe DO LAB - BLOOD BANK TEST ORDER BLOOD BANK [address] [place] [address] * Lactic acid whole blood (05/23/2024 1:50 PM CDT) Lactic Acid 0.9 0.7 - 2.0 mmol/L 05/23/2024 1:57 PM CDT RH LABORATORY Blood BLOOD SPECIMEN / Unknown Venipuncture / Unknown 05/23/2024 1:50 PM CDT 05/23/2024 1:54 PM CDT Vi Coe DO LAB - BLOOD ORDE RABLES LABORATORY [facility] Acute Care Lab [address] [facility] Lab (1st floor, no room number) [place] [address] * Blood Culture Peripheral Blood (05/23/2024 1:50 PM CDT) Culture No Growth 05/28/2024 4:06 PM CDT UU IDD LABORATORY Blood BLOOD SPECIMEN / Unknown Venipuncture / Unknown 05/23/2024 1:50 PM CDT 05/23/2024 1:53 PM CDT Vi Coe DO LAB - MICRO GENE RAL ORDERABLES [facility] IDD LABORATORY [facility] Inf. Diseases Diag. Lab [address] [facility], [address] [place] [address], [facility] * (ABNORMAL) Renal panel (03/12/2024 6:06 [...] Earl MD LAB - BLOOD ORDERA BLES [facility] Acute Care Lab [address] Lab (1st floor, no room number) [place] [address] * Glucose (03/12/2024 6:06 AM CDT) Only the most recent of2 resultswithin the time period is included. Glucose 77 70 - 99 mg/dL 03/12/2024 6:35 AM CDT LABORATORY Blood STRUCTURE OF RIGHT UPPER LIMB / Unknown Venipuncture / Unknown 03/12/2024 6:06 AM CDT 03/12/2024 6:10 AM CDT Ron Tripathi MD LAB - BLOOD ORDERABL ES Performing Organization Address City/[facility]/ZIP Co de Phone Number [facility] Acute Care Lab [address] Lab (1st floor, no room number) [place] [address] * XR Chest Port 1 View (03/11/2024 3:25 AM CDT) Anatomical Region Laterality Modality Chest Digital Radiogra phy 03/11/2024 3:25 AM CDT Impressions 03/11/2024 3:30 AM CDT IMPRESSION: Normal heart size and pulmonary vascularity. Lungs clear. No pneumothorax. Minimal fluid or thickening along the right fissure. Narrative 03/11/2024 3:30 AM CDT EXAM: XR CHEST PORT 1 VIEW LOCATION: [facility] DATE: 03/11/2024 INDICATION: Shortness of breath COMPARISON: None. Procedure Note David Díaz MD - 03/11/2024 EXAM: XR CHEST PORT 1 VIEW LOCATION: [facility] DATE: 03/11/2024 INDICATION: Shortness of breath COMPARISON: [...] Blood Cells RH BLOOD BANK Product Code [id number] RH BLOO D BANK Unit Status Transfused RH BLOO D BANK Unit Number [id number] RH B LOOD BANK CROSSMATCH Compatible RH BLOOD BANK CODING SYSTEM [id number] RH BLO OD BANK ISSUE DATE AND TIME [id number] RH BLOOD BANK UNIT ABO/RH O+ RH BLOOD BANK UNIT TYPE ISBT 5100 RH BL OOD BANK 03/10/2024 6:37 PM CDT Eileen Earl MD BLOOD BANK PRODUCT ORDERABLES BLOOD BANK [address] [place] [address] * Morphology Tracking (03/09/2024 9:12 AM CDT) Blood VENOUS LINE / Unknown Venipuncture / Unknown 03/09/2024 9:12 AM CDT 03/09/2024 9:26 AM CDT Antonino Cheek MD LAB - BLOOD ORDERABL ES LABORATORY [facility] Acute Care Lab [address] Lab (1st floor, no room number) [place] [address] * Lactate Dehydrogenase (03/09/2024 9:12 AM CDT) Lactate Dehydrogenase 226 0 - 250 U/L 03/09/2024 9:59 AM CDT RH LABORATORY Blood VENOUS LINE / Unknown Venipuncture / Unknown 03/09/2024 9:12 AM CDT 03/09/2024 9:26 AM CDT Antonino Cheek MD LAB - BLOOD ORDERABL ES [facility] Acute Care Lab [address] Lab (1st floor, no room number) [place] [address] * (ABNORMAL) Reticulocyte count (03/09/2024 9:12 AM CDT) % Reticulocyte 2.8(H) 0.5 - 2.0 % 03/09/2024 9:33 AM CDT LABORATORY Absolute Reticulocyte 0.072 0.025 - 0.095 10e6/uL 03/09/2024 9:33 AM CDT LABORATORY Blood VENOUS LINE / Unknown Venipuncture / Unknown 03/09/2024 9:12 AM CDT 03/09/2024 9:26 AM CDT Antonino Cheek MD LAB - BLOOD ORDERABL ES Performing Organization Address [facility]/ZIP Co de Phone Number [facility] Lab [address] Lab (1st floor, no room number) [place] [address] * Haptoglobin (03/09/2024 9:12 AM CDT) Haptoglobin 127 30 - 200 mg/dL 03/10/2024 1:23 AM CDT U LABORATORY Blood VENOUS LINE / Unknown Venipuncture / Unknown 03/09/2024 9:12 AM CDT 03/09/2024 9:26 AM CDT Antonino Cheek MD LAB - BLOOD ORDERABL ES [facility]U LABORATORY [facility] [address] [facility], [address] [place] [address], [facility] * Bld morphology pathology review (03/09/2024 9:12 AM CDT) Final Diagnosis Peripheral blood for morphology: -Moderate normochromic, normocytic anemia without evidence of red cell regeneration; no morphologic or laboratory features of hemolysis detected -Slight mature neutrophilia without morphologic abnormalities 03/13/2024 10:17 AM T [facility] PATH[facility] Comment Review of recent [...] 50: Marked thrombocytopenia 03/13/2024 10:17 AM CDT [facility] Performing Labs The technical component of this testing was completed at [facility], [facility] and [facility] 03/13/2024 10:17 AM CDT [facility] Blood VENOUS LINE / [...] Antonino Cheek MD LAB - BEAKER AP [facility] PATH[facility] LAB [facility] Pathology Lab [address] 1[address], [address] [place] [address] * Bilirubin Direct and Total (03/09/2024 9:12 AM CDT) Bilirubin Direct 0.22 0.00 - 0.30 mg/dL 03/09/2024 9:59 AM CDT LABORATORY Bilirubin Total 0.5 <=1.2 mg/dL 03/09/2024 9:59 AM CDT LABORATORY Blood VENOUS LINE / Unknown Venipuncture / Unknown 03/09/2024 9:12 AM CDT 03/09/2024 9:26 AM CDT Antonino Cheek MD LAB - BLOOD ORDERABL ES LABORATORY [facility] Lab [address] Lab (1st floor, no room number) [place] [address], [facility] * Surgical Pathology Exam (03/08/2024 1:26 PM CDT) Case Report Surgical Pathology Report ? Case: [id number] ? Authorizing Provider: ??Eileen Earl MD ?Collected: ? 03/08/2024 01:26 PM ? Ordering Location: ? [facility] ?Received: ?03/08/2024 02:01 PM ? [facility] [place] ? Pathologist: ? Jae Cardona MD ? [...] component of this testing was completed at [facility]. Stain controls for all stains resulted within this report have been reviewed and show appropriate reactivity. 03/09/2024 10:13 AM CDT LABORATORY Case Images 03/09/2024 10:13 AM CDT LABORATORY Polyp RECTUM PART / Unknown 03/08/2024 1:26 PM CDT 03/08/2024 2:01 PM CDT Eileen Earl MD LAB - DAVID [facility] Acute Care Lab [address] Lab (1st floor, no room number) [place] [address] * COLONOSCOPY (03/08/2024 1:04 PM CDT) COLONOSCOPY [facility] Patient Name: Herminio Victor ? Procedure [...] continuously. The ?Olympus Adult Colonoscope, Model # CF-DF168H, ?Censitrac # [id number] was introduced through the ?anus and advanced [...] Note Initiated On: 03/08/2024 1:04 PM MRN: ?[id number] Procedure Date: ? 03/08/2024 1:04:50 PM Scope [...] US UPPER EXTREMITY VENOUS DUPLEX RIGHT LOCATION: [facility] DATE: 03/07/2024 INDICATION: Swelling, looking for DVT [...] US UPPER EXTREMITY VENOUS DUPLEX RIGHT LOCATION: [facility] DATE: 03/07/2024 INDICATION: Swelling, looking for DVT [...] Patricio Bocanegra RN ? 03/07/2024 ??1:41 PM [facility] Single Lumen Midline Placement Date/Time: 03/07/2024 [...] procedure a time out was called ?? [place] Protocol: the Joint Commission [place] Protocol was followed ?? Preparation: Patient was [...] type: non-valved Catheter size: 4 Fr Brand: [employer] Lot number: [id number] Placement method: venipuncture, MST and ultrasound Number [...] Tube (SST) (03/06/2024 7:55 PM CDT) Pathologist [facility] Hold Specimen JI 03/06/2024 9:03 PM CDT LABORATORY Blood BLOOD SPECIMEN / Unknown Venipuncture / Unknown 03/06/2024 7:55 PM CDT 03/06/2024 7:55 PM CDT Ron Tripathi MD LAB - BLOOD ORDERABL ES [facility] Acute Care Lab [address] [facility] Lab (1st floor, no room number) [place] [address] * UPPER GI ENDOSCOPY (03/06/2024 1:21 PM CDT) Upper GI Endoscopy [facility] Patient Name: Herminio Victor ? Procedure [...] ?Olympus Gastroscope, Model # [id number]-H190, Censitrac # ?[id number] was introduced through the mouth, and ?advanced [...] Note Initiated On: 03/06/2024 1:21 PM MRN: ?[id number] Procedure Date: ? 03/06/2024 1:21:29 PM Total [...] Blood Cells RH BLOOD BANK Product Code [id number] RH BLOO D BANK Unit Status Transfused RH BLOO D BANK Unit Number [id number] RH B LOOD BANK CROSSMATCH Compatible RH BLOOD BANK CODING SYSTEM [id number] RH BLO OD BANK ISSUE DATE AND TIME [id number] RH BLOOD BANK UNIT ABO/RH O+ RH BLOOD BANK UNIT TYPE ISBT 5100 RH BL OOD BANK 03/06/2024 7:50 AM CDT Antonino Cheek MD BLOOD BANK PRODUCT O RDERABLES RH BLOOD BANK [address] [place] [address], [facility] * (ABNORMAL) Potassium (03/04/2024 6:29 PM CDT) Potassium 5.6(H) 3.4 - 5.3 mmol/L 03/04/2024 7:00 PM CDT RH LABORATORY Blood STRUCTURE OF LEFT HAND / Unknown Venipuncture / Unknown 03/04/2024 6:29 PM CDT 03/04/2024 6:37 PM CDT Job Her MD LAB - BLOOD ORDERABL ES LABORATORY [facility] Acute [facility] Lab [address] Lab (1st floor, no room number) [place] [address] * Cortisol (03/04/2024 6:45 AM CDT) [...] DO LAB - BLOOD ORDER NADIA LABORATORY [facility] Core Lab [address] [facility], [address] [place] [address] * (ABNORMAL) Occult blood stool (02/24/2024 11:31 AM CDT) Occult Blood Positive(A ) Negative JOJO 02/24/2024 11:40 AM CDT LABORATORY Stool RECTAL CONTENTS / Unknown Non-blood Collection / Unknown 02/24/2024 11:31 AM CDT 02/24/2024 11:38 AM CDT Jae Noel MD LAB - STOOLS ORDERAB LES LABORATORY [facility] Acute Care Lab [address] Lab (1st floor, no room number) [place] [address], [facility] * Hepatitis C (HIM External Result) (01/04/2022 12:00 PM CDT) Hep C HIM See Scanned Document EXTERNAL LAB Comment:Nonreactive 01/04/2022 12:0 0 PM CDT Narrative EXTERNAL LAB - 01/04/2022 12:00 PM CDT LAB RESULT [facility] [address] [place] [address] Provider Outside LAB - HIM EXTERNAL R ESULT EXTERNAL LAB External Lab * (ABNORMAL) Lipid panel (12/07/2017 12:34 PM CLIENT OPERATIONS MANAGER) Cholesterol 115 <200 mg/dL 12/07/2017 1:27 PM CLIENT OPERATIONS MANAGER [facility] Triglycerides 84 <150 mg/dL 12/07/2017 1:27 PM CLIENT OPERATIONS MANAGER [facility] HDL Cholesterol 37(L) >39 mg/dL 8 1:27 PM [facility] LDL Cholesterol Calculated 61 <100 mg/dL 12/07/2017 1:27 PM CLIENT OPERATIONS MANAGER [facility] Comment:Desirable: <100 mg/d l Non HDL Cholesterol 78 <130 mg/dL 12/07/2017 1:27 PM CLIENT OPERATIONS MANAGER [facility] Blood specimen (specimen) 12/07/2017 12:34 PM CLIENT OPERATIONS MANAGER 12/07/2017 12:58 PM CLIENT OPERATIONS MANAGER Michele Fuentes MD LAB - BLOOD ORD ERABLES [facility] [address] [address], [facility] [phone] from Last 3 Months or Most Recently Relevant to Health Maintenance Advance Directives For more information, please contact: [phone] * Full Code (Latest Code Status on [...] 12:25 PM 01/25/2019 11:45 AM Care Teams Atmospheric Scientist Relationship Specialty Start Date End Date Preet Huff PCP - General 06/24/11
--- OUTSIDE RECORDS SUMMARY | 2024-06-04 15:40 | XMS_ITS | Encounter Summary ---
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 included in the ptbal-ta-aezp. 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 No destructive lesions in the bones. IMPRESSION: 1. 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 2. Other chronic findings as discussed above. Findings were discussed with Dr. Kenna Coe at 2:35 PM. 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 I personally reviewed the vital signs, [...] Morel RN - 05/23/2024 4:59 PM CDT [facility] ED Nurse Handoff Report ED Chief [...] 2. Lift room needed: No. Bariatric: No Validation Technician Needed: No Isolation: No. Infection: Not Applicable. [...] POS Antibody Screen Negative SPECIMEN EXPIRATION DATE [id number] BLOOD CULTURE ABO/RH TYPE AND SCREEN CT Abdomen Pelvis w Contrast Final Result IMPRESSION: 1. 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 2. Other chronic findings as discussed above. Findings were discussed with Dr. Kenna Coe at 2:35 PM. MIKE LIPSCOMB MD SYSTEM ID: [id number] Treatments provided: See MAR Family Comments: family [...] POS Antibody Screen Negative SPECIMEN EXPIRATION DATE [id number] BLOOD CULTURE ABO/RH TYPE AND SCREEN Imaging CT Abdomen Pelvis w Contrast Final Result IMPRESSION: 1. 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 2. Other chronic findings as discussed above. Findings were discussed with Dr. Kenna Coe at 2:35 PM. MIKE LIPSCOMB MD SYSTEM ID: [id number] Independent Interpretation None ED Course Medications Administered [...] intermittent infusion (10mg Intravenous $New Bag 05/23/24 1511) prothrombin 4 factor complex concentrate (KCENTRA) infusion 4,156 Units (4,156 Units Intravenous $Given 05/23/24 1458) Procedures Procedures Discussion of Management Urology, Poppy [...] care. [address] Cheek [facility] who accepts 1620 Arianna Goodman (Mother) [phone] (Home Phone) Updated mom Additional Documentation None Medical Decision Making / Diagnosis [facility] Diagnoses: None MIPS None MDM Herminio [...] Expected time: Means of arrival: Ambulance Comments: [place] 332 documented in this encounter Miscellaneous Notes * Plan of Care - Rand Ochoa OTR - 05/30/2024 5:21 PM CDT Occupational Therapy Discharge Summary Reason for therapy discharge: Discharged to home with home therapy. Progress towards therapy goal(s). See goals on Care Plan in [facility] electronic health record for goal details. Goals partially met. Barriers to achieving goals: discharge from facility. Therapy recommendation(s): Continued therapy is recommended. Rationale/Recommendations: Patient appears safe and able todischarge home with intermittent assist from family with higher level IADLS (just like baseline). Pt wouldbeenfit from OT to progress ADL tolerance. Pt not seen by medical underwriter on this date, note written based on previous treating OT's note and recommendations. * Plan of Care - Joann Marinelli PT - 05/30/2024 5:21 PM CDT Physical Therapy Discharge Summary Reason for therapy discharge: Discharged to home with home therapy. Progress towards therapy goal(s). See goals on Care Plan in [facility] electronic health record for goal details. Goals not met. Barriers to achieving goals: discharge from facility. Therapy recommendation(s): Continued therapy is recommended. Rationale/Recommendations: Rec home with assist for safe mobilityand HHPT to progress strength and IND mobility. * Pharmacy-Anticoagulation Service - Joni Steel [facility] - 05/30/2024 3:00 PM CDT Images from the original note were not included. 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 regimen of 5 mg M-F and [...] PM * Plan of Care - Cecilia Crabtere RN - 05/30/2024 1:23 PM CDT RN [...] Manage Glycemia Recent Flowsheet Documentation Taken 05/29/2024 0200 by Marce Leon RN Glycemic Management: blood [...] Pressure Protection: absorbent pad utilized/changed Taken 05/28/2024 185 by Heidi Koo RN Body Position: supine, [...] Skin Protection Recent Flowsheet Documentation Taken 05/28/2024 2321 by Heidi Koo RN Activity Management: ambulated [...] Thromboembolism) Risk Recent Flowsheet Documentation Taken 05/28/2024 08 by Edie Pack RN VTE Prevention/Management: SCDs off (sequential compression devices) Intervention: Prevent Infection Recent Flowsheet Documentation Taken 05/28/2024 08 by Edie Pack RN Infection Prevention: single patient room provided rest/sleep promoted hand hygiene promoted Goal: Optimal Comfort and Wellbeing Outcome: Progressing Intervention: Monitor Pain and Promote Comfort Recent Flowsheet Documentation Taken 05/28/2024809 by Edie Pack RNgrinder set up operator thread Interventions: declines Goal: Readiness for Transition of [...] Skin Protection Recent Flowsheet Documentation Taken 05/28/2024 0810 by Edie Pack RN Activity Management: activity [...] documentation flowsheets. Pertinent assessments: Assumed cares @ [phone].Disoriented to situation and time. VSS on RA. [...] Fall Risk Recent Flowsheet Documentation Taken 05/27/2024 2307 by Wilver Jones RN Safety Promotion/Fall Prevention: [...] Intervention: Moisture Management Recent Flowsheet Documentation Taken 05/27/2024 193 by Kristin Lauren RN Moisture Interventions: Encourage regular toileting Bathing/Skin Care: moisturizer applied Taken 05/27/20241808 by Kristin Lauren RN Moisture Interventions: Encourage regular toileting Intervention: Optimize Skin Protection Recent Flowsheet Documentation Taken 05/27/2024 1936 by Kristin Lauren, RN Activity Management: activity adjusted per tolerance [...] Flowsheet Documentation Taken 05/27/2024919 by Edie Pack RNgrinder set up operator thread Interventions: declines Goal: Readiness for Transition of [...] documentation flowsheets. Pertinent assessments: Assumed cares @ [phone].Disoriented to time and situation. VSS on RA. [...] your shift note. Outcome: Progressing Flowsheets (Taken 05/26/20241) Outcome Evaluation: IV zosyn. Denies pain. Tolerating [...] bedrest * Pharmacy-Anticoagulation Service - Luis Collado [facility] - 05/26/2024 4:50 PM CDT Clinical Pharmacy - Warfarin Dosing Consult Pharmacy has been consulted to manage this patient???s warfarin therapy. Indication: DVT/PE Prophylaxis Therapy Goal: INR 2-3 Warfarin Prior to Admission: Yes Warfarin ASPARAGUS CUTTER Regimen: 5 mg M-F and No dose Mindy Jordan Recent documented change in oral intake/nutrition: Unknown [...] (Venous Thromboembolism) Risk Recent Flowsheet Documentation Taken 05/26/202435 by Laura Aggarwal RN VTE Prevention/Management: SCDs [...] Recent Flowsheet Documentation Taken 05/25/20242021 by Derek Shafer, RN Safety Promotion/Fall Prevention: assistive device/personal items [...] Skin Injury Recent Flowsheet Documentation Taken 05/25/2024 1721 by Chris Mcduffie RN Body Position: position changed independently Intervention: Prevent and Manage VTE (Venous Thromboembolism) Risk Recent Flowsheet Documentation Taken 05/25/2024 1721 by Chris Mcduffie RN VTE Prevention/Management: SCDs [...] Flowsheet Documentation Taken 05/25/2024 1721 by Chris Mcduffie RN Activity Management: bedrest [...] * Pharmacy-Vancomycin Dosing Service - Chucho Zuluaga [facility] - 05/25/2024 3:31 PM CDT [...] onward) Start Dose/Rate Route Frequency Ordered Stop 05/24/[address] [place] - receiving intermittent dosing [...] dressing intact * Plan of Care - Mbangong, Jessica A, RN - 05/24/2024 6:07 PM CDT Goal [...] shift note. Outcome: Progressing Flowsheets (Taken 05/24/2024 3786) Outcome Evaluation: Scrotal dressing changed twice. Did [...] Fall Risk Recent Flowsheet Documentation Taken 05/24/2024 1652 by Jessica Paz RN Safety Promotion/Fall Prevention: [...] member and Thelma (aunt) via phone and [phone] Pertinent Information: outside meds--none added Changes made to ASPARAGUS CUTTER medication list: Added: none Deleted: norvasc, lipitor, Changed: protonix Allergies reviewed with patient and updates made in EHR: yes Medication History Completed By: Graham Joseph RPH 05/23/2024 9:51 PM ASPARAGUS CUTTER Med List Medication Sig Last Dose B Qiolfrs-G-Qhrdz Acid (WESCAPS PO) Take 1 capsule by [...] * Pharmacy-Vancomycin Dosing Service - John Rosado [facility] - 05/23/2024 9:03 PM CDT Pharmacy [...] (H28) POSTOPERATIVE DIAGNOSIS: (R79.1) Supratherapeutic INR (N49.3) Ojse's gangrene of scrotum (H28) START TIME: 6:36 [...] and procedure to be performed. A 16 Croatian coud?? catheter was placed through the urethra, [...] stable condition. Lizandro Barron MD Urology [facility] documented in this encounter Plan of Treatment Upcoming Encounters Date Type Department Care Team (Late st Contact Info) Description 07/05/2024 1:15 PM CDT Office Visit [address] [address] Lizandro Barron MD [address] [address] Scheduled Referrals Name Type Priority Associated Diagnoses [...] - 99 mg/dL 05/30/2024 1:46 PM CDT [facility] POC Blood, Capillary BLOOD SPECIMEN / Unknown 05/30/2024 1:40 PM CDT 05/30/2024 1:46 PM CDT Antonino Mohamud [facility] POCT RH LABORATORY [facility] Lab [address] Lab (1st floor, no room number) [place] [address], [facility] * Glucose by meter (05/30/2024 7:13 AM CDT) GLUCOSE BY METER POCT 82 70 - 99 mg/dL 05/30/2024 7:19 AM CDT [facility] LABORATORY POC Blood, Capillary BLOOD SPECIMEN / Unknown 05/30/2024 7:13 AM CDT 05/30/2024 7:19 AM CDT Antonino Cheek MD LAB - BEAKER POCT LABORATORY [facility] Lab [address] Lab (1st floor, no room number) [place] [address], [facility] * (ABNORMAL) INR (05/30/2024 6:54 AM CDT) INR 2.26(H) 0.85 - 1.15 05/30/2024 7:20 AM CDT [facility] LABORATORY Blood STRUCTURE OF RIGHT HAND / Unknown Venipuncture / Unknown 05/30/2024 6:54 AM CDT 05/30/2024 7:06 AM CDT Antonino Cheek MD LAB - BLOOD ORDERABL ES Performing Organization Address City/[facility]/ZIP Co de Phone Number LABORATORY [facility] [address] Lab (1st floor, no room number) [place] [id number], [facility] * (ABNORMAL) Basic metabolic panel (05/30/2024 6:54 [...] 7:29 AM CDT RH LABORATORY Comment:eGFR calculated usin [...] LAB - BLOOD ORDERABL ES RH LABORATORY [facility] Acute Care Lab [address] [facility] Lab (1st floor, no room number) [place] [address] * (ABNORMAL) CBC with [...] - 15.0 % 05/30/2024 7:11 AM CDT LABORATORY Platelet Count 165 150 - 450 10e3/uL 05/30/2024 7:11 AM CDT [facility] LABORATORY Blood STRUCTURE OF RIGHT HAND / Unknown Venipuncture / Unknown 05/30/2024 6:54 AM CDT 05/30/2024 7:06 AM CDT Charles Mcneal MD LAB - BLOOD ORDERABL ES [facility] Lab [address] Lab (1st floor, no room number) [address] [place] [address] * (ABNORMAL) Glucose by meter (05/30/2024 2:18 AM CDT) GLUCOSE BY METER POCT 138(H) 70 - 99 mg/dL 05/30/2024 2:24 AM CDT LABORATORY POC Blood, Capillary BLOOD SPECIMEN / Unknown 05/30/2024 2:18 AM CDT 05/30/2024 2:24 AM CDT Antonino DEAN - BEAKER POCT Performing Organization Address [facility]/ZIP Co de Phone Number [facility] Lab [address] Lab (1st floor, no room number) [place] [phone] [place] [address] * (ABNORMAL) Glucose by meter (05/29/2024 9:28 PM CDT) GLUCOSE BY METER POCT 160(H) 70 - 99 mg/dL 05/29/2024 9:35 PM CDT LABORATORY POC Blood, Capillary BLOOD SPECIMEN / Unknown 05/29/2024 9:28 PM CDT 05/29/2024 9:35 PM CDT Antonino DEAN - BEAKER POCT LABORATORY [facility] Lab [address] Lab (1st floor, no room number) [place] [phone] [place] [address] * (ABNORMAL) Glucose by meter (05/29/2024 5:54 PM CDT) GLUCOSE BY METER POCT 159(H) 70 - 99 mg/dL 05/29/2024 6:01 PM CDT RH LABORATORY POC Blood, Capillary BLOOD SPECIMEN / Unknown 05/29/2024 5:54 PM CDT 05/29/2024 6:01 PM CDT Antonino Cheek MD LAB - BEAKER POCT LABORATORY [facility] Lab [address] Lab (1st floor, no room number) [address] [place] [address] * (ABNORMAL) Glucose by meter (05/29/2024 1:41 PM CDT) GLUCOSE BY METER POCT 158(H) 70 - 99 mg/dL 05/29/2024 1:48 PM CDT LABORATORY POC Blood, Capillary BLOOD SPECIMEN / Unknown 05/29/2024 1:41 PM CDT 05/29/2024 1:48 PM CDT Antonino Cheek MD LAB - BEAKER POCT LABORATORY [facility] Lab [address] Lab (1st floor, no room number) [place] [phone] [place] [address] * Glucose by meter (05/29/2024 7:54 AM CDT) GLUCOSE BY METER POCT 90 70 - 99 mg/dL 05/29/2024 8:01 AM CDT LABORATORY POC Blood, Capillary BLOOD SPECIMEN / Unknown 05/29/2024 7:54 AM CDT 05/29/2024 8:01 AM CDT Antonino Cheek MD LAB - BEAKER POCT RH LABORATORY POC [facility] Lab [address] Lab (1st floor, no room number) [place] [id number] * (ABNORMAL) INR (05/29/2024 6:22 AM CDT) INR 1.92(H) 0.85 - 1.15 05/29/2024 6:52 AM CDT LABORATORY Blood STRUCTURE OF RIGHT HAND / Unknown Venipuncture / Unknown 05/29/2024 6:22 AM CDT 05/29/2024 6:40 AM CDT Antonino Cheek MD LAB - BLOOD ORDERABL ES Performing Organization Address [facility]/ZIP Co de Phone Number LABORATORY [facility] Lab [address] Lab (1st floor, no room number) [place] [phone] [place] [address] * (ABNORMAL) Basic metabolic panel (05/29/2024 6:22 [...] - 10.4 mg/dL 05/29/2024 7:01 AM CDT [facility] LABORATORY Comment:Reference intervals for [...] LAB - BLOOD ORDERABL ES RH LABORATORY [facility] Lab [address] [facility] Lab (1st floor, no room number) [place] [address] * (ABNORMAL) CBC with [...] Mcneal MD LAB - BLOOD ORDERABL ES [facility] Lab [address] Lab (1st floor, no room number) [address] * (ABNORMAL) Glucose by meter (05/29/2024 2:26 AM CDT) GLUCOSE BY METER POCT 103(H) 70 - 99 mg/dL 05/29/2024 2:33 AM CDT LABORATORY POC Blood, Capillary BLOOD SPECIMEN / Unknown 05/29/2024 2:26 AM CDT 05/29/2024 2:33 AM CDT Antonino Cheek MD LAB - BEAKER POCT LABORATORY [facility] Lab [address] Lab (1st floor, no room number) [address] [place] [address] * (ABNORMAL) Glucose by meter (05/28/2024 9:50 PM CDT) GLUCOSE BY METER POCT 102(H) 70 - 99 mg/dL 05/28/2024 9:56 PM CDT LABORATORY POC Blood, Capillary BLOOD SPECIMEN / Unknown 05/28/2024 9:50 PM CDT 05/28/2024 9:56 PM CDT Antonino Cheek MD LAB - BEAKER POCT LABORATORY [facility] Lab [address] Lab (1st floor, no room number) [address] [place] [address] * (ABNORMAL) Glucose by meter (05/28/2024 5:08 PM CDT) GLUCOSE BY METER POCT 254(H) 70 - 99 mg/dL 05/28/2024 5:16 PM CDT RH LABORATORY POC Blood, Capillary BLOOD SPECIMEN / Unknown 05/28/2024 5:08 PM CDT 05/28/2024 5:16 PM CDT Antonino Cheek MD LAB - BEAKER POCT LABORATORY [facility] Lab [address] Lab (1st floor, no room number) [address] [place] [address] * Glucose by meter (05/28/2024 1:58 PM CDT) GLUCOSE BY METER POCT 91 70 - 99 mg/dL 05/28/2024 2:05 PM CDT LABORATORY POC Blood, Capillary BLOOD SPECIMEN / Unknown 05/28/2024 1:58 PM CDT 05/28/2024 2:05 PM CDT Antonino DEAN - BEXIANG POCT Performing Organization Address [facility]/ZIP Co de Phone Number LABORATORY [facility] Lab [address] Lab (1st floor, no room number) [place] [phone] [place] [address] * (ABNORMAL) Glucose by meter (05/28/2024 7:48 AM CDT) GLUCOSE BY METER POCT 128(H) 70 - 99 mg/dL 05/28/2024 7:54 AM CDT LABORATORY POC Blood, Capillary BLOOD SPECIMEN / Unknown 05/28/2024 7:48 AM CDT 05/28/2024 7:54 AM CDT Antonino DEAN - BEXIANG POCT LABORATORY POC [facility] Lab [address] Lab (1st floor, no room number) [address] * Extra Purple Top EDTA (LAB USE ONLY) (05/28/2024 6:07 AM CDT) Hold Specimen [facility] 05/28/2024 7:32 AM CDT RH LABORATORY Blood STRUCTURE OF LEFT HAND / Unknown Venipuncture / Unknown 05/28/2024 6:07 AM CDT 05/28/2024 6:17 AM CDT Antonino Cheek MD LAB - BLOOD ORDERABL ES [facility] Lab [address] Lab (1st floor, no room number) [address] * Extra Green Top Tube (LAB USE ONLY) (05/28/2024 6:07 AM CDT) Hold Specimen [facility] 05/28/2024 7:32 AM CDT RH LABORATORY Blood STRUCTURE OF LEFT HAND / Unknown Venipuncture / Unknown 05/28/2024 6:07 AM CDT 05/28/2024 6:17 AM CDT Antonino Cheek MD LAB - BLOOD ORDERABL ES [facility] Lab [address] Lab (1st floor, no room number) [address] * (ABNORMAL) INR (05/28/2024 6:07 AM CDT) INR 1.87(H) 0.85 - 1.15 05/28/2024 6:27 AM CDT RH LABORATORY Blood STRUCTURE OF LEFT HAND / Unknown Venipuncture / Unknown 05/28/2024 6:07 AM CDT 05/28/2024 6:17 AM CDT Antonino Cheek MD LAB - BLOOD ORDERABL ES LABORATORY [facility] Lab [address] Lab (1st floor, no room number) [address] [place] [address] * (ABNORMAL) Hemoglobin (05/28/2024 6:07 AM CDT) Hemoglobin 7.7(L) 13.3 - 17.7 g/dL 05/28/2024 9:02 AM CDT LABORATORY Blood STRUCTURE OF LEFT HAND / Unknown Venipuncture / Unknown 05/28/2024 6:07 AM CDT 05/28/2024 6:17 AM CDT Dileep Anders MD LAB - BLOOD ORD ERABLES Performing Organization Address [facility]/ZIP Co de Phone Number LABORATORY [facility] Lab [address] Lab (1st floor, no room number) [address] * (ABNORMAL) Basic metabolic panel (05/28/2024 6:07 [...] - 10.4 mg/dL 05/28/2024 9:03 AM CDT RH LABORATORY Comment:Reference intervals for this test were updated on 04/24/2024 to reflect our healthy population more accurately. There may be differences in the flagging of prior results with similar values performed with this method. Those prior results can be interpreted in the context of the updated reference intervals. Glucose 77 70 - 99 mg/dL 05/28/2024 9:03 AM CDT RH LABORATORY Blood STRUCTURE OF LEFT HAND / Unknown Venipuncture / Unknown 05/28/2024 6:07 AM CDT 05/28/2024 6:17 AM CDT Dileep Anders MD LAB - BLOOD ORD ERABLES [facility] Lab [address] Lab (1st floor, no room number) [address] [place] [address] * (ABNORMAL) Glucose by meter (05/28/2024 2:19 AM CDT) GLUCOSE BY METER POCT 102(H) 70 - 99 mg/dL 05/28/2024 2:26 AM CDT LABORATORY POC Blood, Capillary BLOOD SPECIMEN / Unknown 05/28/2024 2:19 AM CDT 05/28/2024 2:26 AM CDT Antonino Cheek MD LAB - BEAKER POCT LABORATORY [facility] Lab [address] Lab (1st floor, no room number) [place] [address] * (ABNORMAL) Glucose by meter (05/27/2024 9:05 PM CDT) GLUCOSE BY METER POCT 148(H) 70 - 99 mg/dL 05/27/2024 9:13 PM CDT LABORATORY POC Blood, Capillary BLOOD SPECIMEN / Unknown 05/27/2024 9:05 PM CDT 05/27/2024 9:13 PM CDT Antonino Cheek MD LAB - BEAKER POCT LABORATORY [facility] Lab [address] Lab (1st floor, no room number) [place] [id number] * (ABNORMAL) Glucose by meter (05/27/2024 5:11 PM CDT) GLUCOSE BY METER POCT 148(H) 70 - 99 mg/dL 05/27/2024 5:20 PM CDT LABORATORY POC Blood, Capillary BLOOD SPECIMEN / Unknown 05/27/2024 5:11 PM CDT 05/27/2024 5:20 PM CDT Antonino Cheek MD LAB - BEAKER POCT Performing Organization Address City/[facility]/ZIP Co de Phone Number LABORATORY [facility] Lab [address] Lab (1st floor, no room number) [place] [id number] * (ABNORMAL) Glucose by meter (05/27/2024 11:42 AM CDT) GLUCOSE BY METER POCT 149(H) 70 - 99 mg/dL 05/27/2024 11:49 AM CDT LABORATORY POC Blood, Capillary BLOOD SPECIMEN / Unknown 05/27/2024 11:42 AM CDT 05/27/2024 11:49 AM CDT Antonino Cheek MD LAB - BEAKER POCT LABORATORY [facility] Lab [address] Lab (1st floor, no room number) [place] [id number] * (ABNORMAL) Glucose by meter (05/27/2024 7:44 AM CDT) GLUCOSE BY METER POCT 108(H) 70 - 99 mg/dL 05/27/2024 7:51 AM CDT LABORATORY POC Blood, Capillary BLOOD SPECIMEN / Unknown 05/27/2024 7:44 AM CDT 05/27/2024 7:51 AM CDT Antonino Cheek MD LAB - BEAKER POCT LABORATORY [facility] Lab [address] Lab (1st floor, no room number) [place] [address] * (ABNORMAL) INR (05/27/2024 7:03 AM CDT) INR 1.81(H) 0.85 - 1.15 05/27/2024 7:17 AM CDT LABORATORY Blood STRUCTURE OF RIGHT HAND / Unknown Venipuncture / Unknown 05/27/2024 7:03 AM CDT 05/27/2024 7:07 AM CDT Antonino Cheek MD LAB - BLOOD ORDERABL ES Performing Organization Address [facility]/ZIP Co de Phone Number [facility] Lab [address] Lab (1st floor, no room number) [place] [id number], [facility] * (ABNORMAL) Glucose by meter (05/27/2024 2:03 AM CDT) GLUCOSE BY METER POCT 157(H) 70 - 99 mg/dL 05/27/2024 2:10 AM CDT LABORATORY POC Blood, Capillary BLOOD SPECIMEN / Unknown 05/27/2024 2:03 AM CDT 05/27/2024 2:10 AM CDT Antonino Cheek MD LAB - BEAKER POCT LABORATORY [facility] Care Lab [address] Lab (1st floor, no room number) [place] [id number], [facility] * (ABNORMAL) Glucose by meter (05/26/2024 9:29 PM CDT) GLUCOSE BY METER POCT 155(H) 70 - 99 mg/dL 05/26/2024 9:37 PM CDT RH LABORATORY POC Blood, Capillary BLOOD SPECIMEN / Unknown 05/26/2024 9:29 PM CDT 05/26/2024 9:37 PM CDT Antonino Cheek MD LAB - BEAKER POCT LABORATORY [facility] Lab [address] Lab (1st floor, no room number) [address] [place] [address] * (ABNORMAL) Glucose by meter (05/26/2024 4:10 PM CDT) GLUCOSE BY METER POCT 174(H) 70 - 99 mg/dL 05/26/2024 4:19 PM CDT RH LABORATORY POC Blood, Capillary BLOOD SPECIMEN / Unknown 05/26/2024 4:10 PM CDT 05/26/2024 4:19 PM CDT Antonino DEAN - BEAKER POCT Performing Organization Address [facility]/ZIP Co de Phone Number [facility] Lab [address] Lab (1st floor, no room number) [place] [id number], [facility] * (ABNORMAL) INR (05/26/2024 4:09 PM CDT) INR 1.67(H) 0.85 - 1.15 05/26/2024 4:28 PM CDT RH LABORATORY Blood STRUCTURE OF LEFT UPPER LIMB / Unknown Venipuncture / Unknown 05/26/2024 4:09 PM CDT 05/26/2024 4:15 PM CDT Antonino Cheek MD LAB - BLOOD ORDERABL ES [facility] Lab [address] Lab (1st floor, no room number) [place] [phone] [place] [address] * (ABNORMAL) Glucose by meter (05/26/2024 11:37 AM CDT) GLUCOSE BY METER POCT 197(H) 70 - 99 mg/dL 05/26/2024 11:44 AM CDT RH LABORATORY POC Blood, Capillary BLOOD SPECIMEN / Unknown 05/26/2024 11:37 AM CDT 05/26/2024 11:44 AM CDT Antonino Cheek MD LAB - BEAKER POCT LABORATORY [facility] Lab [address] Lab (1st floor, no room number) [place] [phone] [place] [address] * Glucose by meter (05/26/2024 8:22 AM CDT) GLUCOSE BY METER POCT 85 70 - 99 mg/dL 05/26/2024 8:29 AM CDT LABORATORY POC Blood, Capillary BLOOD SPECIMEN / Unknown 05/26/2024 8:22 AM CDT 05/26/2024 8:29 AM CDT Antonino Cheek MD LAB - BEAKER POCT LABORATORY [facility] Lab [address] Lab (1st floor, no room number) [address] * (ABNORMAL) CBC with platelets and [...] LAB - BLOOD ORDERABL ES LABORATORY [facility] Lab [address] Lab (1st floor, no room number) [place] [address] * (ABNORMAL) Basic metabolic panel [...] 6:33 AM CDT LABORATORY Comment:eGFR calculated usin g 2020 CKD-EPI equation. Calcium 8.7(L) 8.8 - [...] - 99 mg/dL 05/26/2024 6:33 AM CDT RH LABORATORY Blood STRUCTURE OF RIGHT UPPER LIMB / Unknown Venipuncture / Unknown 05/26/2024 5:47 AM CDT 05/26/2024 6:15 AM CDT Antonino Cheek MD LAB - BLOOD ORDERABL ES LABORATORY [facility] Lab [address] Lab (1st floor, no room number) [place] [phone], [facility] * (ABNORMAL) Glucose by meter (05/26/2024 1:57 AM CDT) GLUCOSE BY METER POCT 123(H) 70 - 99 mg/dL 05/26/2024 2:04 AM CDT LABORATORY POC Blood, Capillary BLOOD SPECIMEN / Unknown 05/26/2024 1:57 AM CDT 05/26/2024 2:04 AM CDT Antonino DEAN - BEAKER POCT Performing Organization Address [facility]/ZIP Co de Phone Number LABORATORY [facility] Lab [address] Lab (1st floor, no room number) [place] [phone], [facility] * (ABNORMAL) Glucose by meter (05/25/2024 9:32 PM CDT) GLUCOSE BY METER POCT 155(H) 70 - 99 mg/dL 05/25/2024 9:39 PM CDT LABORATORY POC Blood, Capillary BLOOD SPECIMEN / Unknown 05/25/2024 9:32 PM CDT 05/25/2024 9:39 PM CDT Antonino DEAN - BEAKER POCT LABORATORY [facility] Lab [address] Lab (1st floor, no room number) [place] [phone], [facility] * (ABNORMAL) Glucose by meter (05/25/2024 7:06 PM CDT) GLUCOSE BY METER POCT 183(H) 70 - 99 mg/dL 05/25/2024 7:14 PM CDT LABORATORY POC Blood, Capillary BLOOD SPECIMEN / Unknown 05/25/2024 7:06 PM CDT 05/25/2024 7:14 PM CDT Antonino Cheek MD LAB - BEAKER POCT LABORATORY [facility] Lab [address] Lab (1st floor, no room number) [place] [phone], [facility] * (ABNORMAL) Glucose by meter (05/25/2024 5:29 PM CDT) GLUCOSE BY METER POCT 142(H) 70 - 99 mg/dL 05/25/2024 5:36 PM CDT LABORATORY POC Blood, Capillary BLOOD SPECIMEN / Unknown 05/25/2024 5:29 PM CDT 05/25/2024 5:36 PM CDT Antonino Cheek MD LAB - BEAKER POCT Performing Organization Address [facility]/ZIP Co de Phone Number LABORATORY [facility] Lab [address] Lab (1st floor, no room number) [place] [phone], [facility] * Vancomycin level (05/25/2024 2:04 PM CDT) Vancomycin 11.9 ug/mL 05/25/2024 3:28 PM CDT RH LABORATORY Comment: Traditional Dosing Therapeutic Range: Trough 10-15 ug/mL Peak 20-40 ug/mL Critical: Greater than 25.0 ug/mL Blood STRUCTURE OF RIGHT UPPER LIMB / Unknown Venipuncture / Unknown 05/25/2024 2:04 PM CDT 05/25/2024 2:07 PM CDT Antonino Cheek MD LAB - BLOOD ORDERABL ES [facility] Lab [address] Lab (1st floor, no room number) [place] [address] * Extra Purple Top EDTA (LAB USE ONLY) (05/25/2024 2:04 PM CDT) Hold Specimen JIC 05/25/2024 3:17 PM CDT RH LABORATORY Blood STRUCTURE OF RIGHT UPPER LIMB / Unknown Venipuncture / Unknown 05/25/2024 2:04 PM CDT 05/25/2024 2:07 PM CDT Antonino Cheek MD LAB - BLOOD ORDERABL ES Performing Organization Address City/[facility]/ZIP Co de Phone Number [facility] Lab [address] Lab (1st floor, no room number) [place] [address] * Extra Green Top Tube (LAB USE ONLY) (05/25/2024 2:04 PM CDT) Hold Specimen [facility] 05/25/2024 3:17 PM CDT LABORATORY Blood STRUCTURE OF RIGHT UPPER LIMB / Unknown Venipuncture / Unknown 05/25/2024 2:04 PM CDT 05/25/2024 2:07 PM CDT Antonino Cheek MD LAB - BLOOD ORDERABL ES Performing Organization Address City/[facility]/ZIP Co de Phone Number [facility] Lab [address] Lab (1st floor, no room number) [place] [address], [facility] * Glucose by meter (05/25/2024 2:01 PM CDT) GLUCOSE BY METER POCT 70 70 - 99 mg/dL 05/25/2024 2:08 PM CDT LABORATORY POC Blood, Capillary BLOOD SPECIMEN / Unknown 05/25/2024 2:01 PM CDT 05/25/2024 2:08 PM CDT Antonino Cheek MD LAB - BEAKER POCT LABORATORY [facility] Lab [address] Lab (1st floor, no room number) [place] [address] * Hepatitis B surface antigen (05/25/2024 9:25 AM CDT) Hepatitis B Surface Antigen Nonreactive Nonreactive 05/25/2024 2:23 PM CDT UU LABORATORY Blood BLOOD SPECIMEN / Unknown Venipuncture / Unknown 05/25/2024 9:25 AM CDT 05/25/2024 10:13 AM CDT Jose Enrique Naylor MD LAB - BLOOD ORDERABL ES UU LABORATORY [facility] [place] [facility] Lab [address] [facility], Room [address] [phone] * Hepatitis B Surface Antibody [...] - BLOOD ORDERABL ES UU LABORATORY [facility] [place] [facility] [address] [facility], [address] [address] * Glucose by meter (05/25/2024 5:35 AM CDT) GLUCOSE BY METER POCT 86 70 - 99 mg/dL 05/25/2024 5:42 AM CDT RH LABORATORY POC Blood, Capillary BLOOD SPECIMEN / Unknown 05/25/2024 5:35 AM CDT 05/25/2024 5:42 AM CDT Antonino Cheek MD LAB - BEAKER POCT LABORATORY [facility] Lab [address] Lab (1st floor, no room number) [place] [address] * Glucose by meter (05/25/2024 2:01 AM CDT) GLUCOSE BY METER POCT 86 70 - 99 mg/dL 05/25/2024 2:08 AM CDT LABORATORY POC Blood, Capillary BLOOD SPECIMEN / Unknown 05/25/2024 2:01 AM CDT 05/25/2024 2:08 AM CDT Antonino DEAN - BEXIANG POCT Performing Organization Address City/[facility]/ZIP Co de Phone Number LABORATORY [facility] Lab [address] Lab (1st floor, no room number) [place] [address], [facility] * Glucose by meter (05/24/2024 8:52 PM CDT) GLUCOSE BY METER POCT 96 70 - 99 mg/dL 05/24/2024 8:59 PM CDT RH LABORATORY POC Blood, Capillary BLOOD SPECIMEN / Unknown 05/24/2024 8:52 PM CDT 05/24/2024 8:59 PM CDT Antonino Cheek MD LAB - BEAKER POCT LABORATORY POC [facility] Lab [address] Lab (1st floor, no room number) [address] * Glucose by meter (05/24/2024 5:05 PM CDT) GLUCOSE BY METER POCT 84 70 - 99 mg/dL 05/24/2024 5:32 PM CDT RH LABORATORY POC Blood, Capillary BLOOD SPECIMEN / Unknown 05/24/2024 5:05 PM CDT 05/24/2024 5:32 PM CDT Antonino Cheek MD LAB - BEAKER POCT LABORATORY [facility] Lab [address] Lab (1st floor, no room number) [address] * (ABNORMAL) INR (05/24/2024 2:16 PM CDT) INR 1.16(H) 0.85 - 1.15 05/24/2024 2:34 PM CDT RH LABORATORY Blood BLOOD SPECIMEN / Unknown Venipuncture / Unknown 05/24/2024 2:16 PM CDT 05/24/2024 2:21 PM CDT Lizandro Barron MD LAB - BLOOD ORDERABL ES [facility] Lab [address] Lab (1st floor, no room number) [address] * Glucose by meter (05/24/2024 12:20 PM CDT) GLUCOSE BY METER POCT 75 70 - 99 mg/dL 05/24/2024 12:26 PM CDT LABORATORY POC Blood, Capillary BLOOD SPECIMEN / Unknown 05/24/2024 12:20 PM CDT 05/24/2024 12:26 PM CDT Antonino DEAN - BEAKER POCT RH LABORATORY [facility] Lab [address] Lab (1st floor, no room number) [place] [phone] [place] [address] * Glucose by meter (05/24/2024 9:12 AM CDT) GLUCOSE BY METER POCT 86 70 - 99 mg/dL 05/24/2024 9:19 AM CDT LABORATORY POC Blood, Capillary BLOOD SPECIMEN / Unknown 05/24/2024 9:12 AM CDT 05/24/2024 9:19 AM CDT Antonino Cheek MD LAB - BEAKER POCT Performing Organization Address [facility]/ZIP Co de Phone Number RH LABORATORY [facility] Lab [address] Lab (1st floor, no room number) [address] * (ABNORMAL) CBC with platelets and [...] LAB - BLOOD ORDERABL ES RH LABORATORY [facility] Lab [address] Lab (1st floor, no room number) [place] [address], [facility] * (ABNORMAL) Comprehensive metabolic panel (05/24/2024 6:09 [...] AM CDT RH LABORATORY Comment:eGFR calculated usin g 2020 CKD-EPI equation. Calcium 9.3 8.8 - [...] ORDERABL ES Performing Organization Address [facility]/State/ZIP Co de Phone Number LABORATORY [facility] Lab [address] Lab (1st floor, no room number) [place] [phone] [place] [address] * INR (05/24/2024 6:09 AM CDT) INR 1.14 0.85 - 1.15 05/24/2024 6:27 AM CDT LABORATORY Blood STRUCTURE OF LEFT HAND / Unknown Venipuncture / Unknown 05/24/2024 6:09 AM CDT 05/24/2024 6:14 AM CDT Lizandro Barron MD LAB - BLOOD ORDERABL ES Performing Organization Address [facility]/ZIP Co de Phone Number LABORATORY [facility] Lab [address] Lab (1st floor, no room number) [address] [place] [address] * (ABNORMAL) Glucose by meter (05/24/2024 4:49 AM CDT) GLUCOSE BY METER POCT 119(H) 70 - 99 mg/dL 05/24/2024 4:56 AM CDT LABORATORY POC Blood, Capillary BLOOD SPECIMEN / Unknown 05/24/2024 4:49 AM CDT 05/24/2024 4:56 AM CDT Antonino Cheek MD LAB - BEAKER POCT LABORATORY POC [facility] Lab [address] Lab (1st floor, no room number) [address], [facility] * (ABNORMAL) Glucose by meter (05/24/2024 1:13 AM CDT) GLUCOSE BY METER POCT 100(H) 70 - 99 mg/dL 05/24/2024 1:20 AM CDT RH LABORATORY POC Blood, Capillary BLOOD SPECIMEN / Unknown 05/24/2024 1:13 AM CDT 05/24/2024 1:20 AM CDT Antonino Cheek MD LAB - BEAKER POCT LABORATORY [facility] Lab [address] Lab (1st floor, no room number) [place] [phone], [facility] * INR (05/23/2024 10:19 PM CDT) INR 1.04 0.85 - 1.15 05/23/2024 10:43 PM CDT LABORATORY Blood STRUCTURE OF LEFT UPPER LIMB / Unknown Venipuncture / Unknown 05/23/2024 10:19 PM CDT 05/23/2024 10:26 PM CDT Lizandro Barron MD LAB - BLOOD ORDERABL ES Performing Organization Address [facility]/ZIP Co de Phone Number [facility] Lab [address] Lab (1st floor, no room number) [place] [phone], [facility] * Glucose by meter (05/23/2024 9:58 PM CDT) GLUCOSE BY METER POCT 83 70 - 99 mg/dL 05/23/2024 10:04 PM CDT LABORATORY POC Blood, Capillary BLOOD SPECIMEN / Unknown 05/23/2024 9:58 PM CDT 05/23/2024 10:04 PM CDT Antonino Cheek MD LAB - BEAKER POCT Performing Organization Address City/[facility]/ZIP Co de Phone Number LABORATORY [facility] Lab [address] Lab (1st floor, no room number) [place] [phone] [place] [address] * (ABNORMAL) Glucose by meter (05/23/2024 9:06 PM CDT) GLUCOSE BY METER POCT 47(LL) 70 - 99 mg/dL 05/23/2024 9:13 PM CDT RH LABORATORY POC Comment:Dr/RN Notified Blood, Capillary BLOOD SPECIMEN / Unknown 05/23/2024 9:06 PM CDT 05/23/2024 9:13 PM CDT Antonino Cheek MD LAB - BEAKER POCT LABORATORY [facility] [address] [facility], no room number[facility] [address] [place] [address] * Glucose by meter (05/23/2024 8:41 PM CDT) GLUCOSE BY METER POCT 78 70 - 99 mg/dL 05/23/2024 8:48 PM CDT LABORATORY POC Blood, Capillary BLOOD SPECIMEN / Unknown 05/23/2024 8:41 PM CDT 05/23/2024 8:48 PM CDT Antonino Cheek MD LAB - BEAKER POCT Performing Organization Address City/[facility]/ZIP Co de Phone Number LABORATORY [facility] Lab [address] Lab (1st floor, no room number) [address] * (ABNORMAL) Glucose by meter (05/23/2024 7:55 PM CDT) GLUCOSE BY METER POCT 67(L) 70 - 99 mg/dL 05/23/2024 8:02 PM CDT LABORATORY POC Blood, Capillary BLOOD SPECIMEN / Unknown 05/23/2024 7:55 PM CDT 05/23/2024 8:02 PM CDT Antonino Cheek MD LAB - BEAKER POCT LABORATORY [facility] [address] [facility] Lab (1st floor, no room number) [place] [address], [facility] * (ABNORMAL) Tissue Aerobic Bacterial Culture Routine [...] MICRO GENERAL ORDERABLES [facility]U IDD LABORATORY [facility] Inf. Diseases Diag. Lab [address] [facility], [address] * (ABNORMAL) Gram Stain (05/23/2024 6:42 [...] MICRO GENERAL ORDERABLES [facility] IDD LABORATORY [facility] Inf. Diseases Diag. Lab [address] [facility], [address] * Anaerobic Bacterial Culture Routine (05/23/2024 6:42 PM CDT) Culture 4+ Mixed Aerobic and Anaerobic dev JOJO 05/25/2024 2:01 PM CDT UU IDD LABORATORY Comment:No predominant organ ism Tissue SCROTAL STRUCTURE / Unknown Non-blood Collection / Unknown 05/23/2024 6:42 PM CDT 05/23/2024 6:46 PM CDT Lizandro Barron MD LAB - MICRO GENERAL ORDERABLES [facility] IDD LABORATORY [facility] Inf. Diseases Diag. Lab [address] [facility], [address] [place] [address] * Glucose by meter (05/23/2024 5:41 PM CDT) GLUCOSE BY METER POCT 90 70 - 99 mg/dL 05/23/2024 5:49 PM CDT RH LABORATORY POC Blood, Capillary BLOOD SPECIMEN / Unknown 05/23/2024 5:41 PM CDT 05/23/2024 5:49 PM CDT Vi Coe DO LAB - BEAKER POC T LABORATORY [facility] Lab [address] Lab (1st floor, no room number) [place] [address] * EKG 12-lead, tracing only (05/23/2024 5:08 PM CDT) Systolic Blood Pressure mmHg RADIOLOGY RESULTS Diastolic Blood Pressure mmHg RADIOLOGY RESULTS Ventricular Rate 63 BPM RAD IOLOGY RESULTS Atrial Rate 63 BPM RADIOLOG Y RESULTS TN Interval 222 ms RADIOLOG Y RESULTS QRS Duration 102 ms RADIOLO GY RESULTS QT 448 ms RADIOLOGY RESULTS QTc 458 ms RADIOLOGY RESULTS P [place] 54 degrees RADIOLOGY RESULTS R AXIS -5 degrees RADIOLOGY RESULTS T [place] 24 degrees RADIOLOGY RESULTS Interpretation ECG Sinus rhythm with 1st degree A-V block Septal infarct , age undetermined Abnormal ECG When compared with ECG of 02-Mar-2024 14:00, Septal infarct is now Present No significant change was found Confirmed by - EMERGENCY ROOM, PHYSICIAN ([id number]), managing editor LIZANDRO ZABALA ([id number]) on 05/24/2024 6:44:53 AM RADIOLOGY RESULTS 05/23/2024 5:08 PM CDT 05/24/2024 6:44 AM CDT Pan Michelle MD ECG ORDERABLES RADIOLOGY RESULTS * (ABNORMAL) INR (05/23/2024 3:42 PM CDT) INR 1.29(H) 0.85 - 1.15 05/23/2024 4:21 PM CDT LABORATORY Blood BLOOD SPECIMEN / Unknown Venipuncture / Unknown 05/23/2024 3:42 PM CDT 05/23/2024 3:45 PM CDT Vi Coe DO LAB - BLOOD ORDE RABMIRELLA LABORATORY [facility] Lab [address] [facility] Lab (1st floor, no room number) [place] [id number] * CT Abdomen Pelvis [...] 2:35 PM. MIKE LIPSCOMB MD SYSTEM ID: [id number] Narrative 05/23/2024 2:[address] ABDOMEN [...] veins which are not included in the [id number]. MUSCULOSKELETAL: Stable degenerative changes at L4-L5 with [...] veins which are not included in the [id number]. 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 No destructive lesions in the bones. IMPRESSION: 1. 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 2. Other chronic findings as discussed above. Findings were discussed with Dr. Kenna Coe at 2:35 PM. MIKE LIPSCOMB MD SYSTEM ID: [id number] Vi Coe DO IMG CT ORDERABLE S * Adult Type and Screen (05/23/2024 2:07 PM CDT) ABO/RH(D) O POS 05/23/2024 1:37 PM CDT RH BLOOD BANK Antibody Screen Negative Negative 05/23/2024 1:37 PM CDT RH BLOOD BANK SPECIMEN EXPIRATION DATE [id number] 05/23/2024 1:37 PM CDT RH BLOOD BANK Blood BLOOD SPECIMEN / Unknown Venipuncture / Unknown 05/23/2024 2:07 PM CDT 05/23/2024 2:10 PM CDT Vi Coe DO LAB - BLOOD BANK TEST ORDER BLOOD BANK [address] [place] [address], [facility] * (ABNORMAL) CBC with platelets and differential [...] Coe DO LAB - BLOOD ORDE MYRANDA [facility] Lab [address] Lab (1st floor, no room number) [place] [address] * Lactic acid whole blood (05/23/2024 1:50 PM CDT) Lactic Acid 0.9 0.7 - 2.0 mmol/L 05/23/2024 1:57 PM CDT RH LABORATORY Blood BLOOD SPECIMEN / Unknown Venipuncture / Unknown 05/23/2024 1:50 PM CDT 05/23/2024 1:54 PM CDT Vi Coe DO LAB - BLOOD ORDE MYRANDA Performing Organization Address City/[facility]/ZIP Co de Phone Number [facility] Lab [address] Lab (1st floor, no room number) [place] [address] * Blood Culture Peripheral Blood (05/23/2024 1:50 PM CDT) Pathologist [facility] Culture No Growth 05/28/2024 4:06 PM CDT UU IDD LABORATORY Blood BLOOD SPECIMEN / Unknown Venipuncture / Unknown 05/23/2024 1:50 PM CDT 05/23/2024 1:53 PM CDT Vi Coe DO LAB - MICRO GENE RAL ORDERABLES [facility] IDD LABORATORY [facility] Inf. Diseases Diag. Lab [address] [facility], [address] [place] [address] * (ABNORMAL) Comprehensive metabolic [...] 2:21 PM CDT RH LABORATORY Comment:eGFR calculated us2020 CKD-EPI equation. Calcium 9.1 8.8 - 10.4 [...] CDT 05/23/2024 1:55 PM CDT Vi Coe LAB - BLOOD ORDE MYRANDA LABORATORY [facility] Lab [address] [employer] Lab (1st floor, no room number) [place] [address] * (ABNORMAL) INR (05/23/2024 1:50 PM CDT) INR >10.00(HH) 0.85 - 1.15 05/23/2024 2:30 PM CDT LABORATORY Blood BLOOD SPECIMEN / Unknown Venipuncture / Unknown 05/23/2024 1:50 PM CDT 05/23/2024 1:55 PM CDT [facility] ROVERTO WHITMORE LABORATORY [facility] [address] [employer] Lab (1st floor, no room number) [place] [address] documented in this encounter [...] over 1-5 Minutes, Starting on Tue05/23/24 at 2047, Use if have IV access, BG less [...] 2 MIN PRN, opioid reversal, Starting on 8/14/24 at 2100, Administer intramuscular if an intravenous [...] vomiting, Administer over 2-5 Minutes, Starting on Tue05/24/24 at 1412 $Given 05/24/2024 2:58 PM CDT [...] - Comment: dialysis)1248 ($Given - Provider: Cecilia Crabtree RN)1800 (Canceled Entry - Provider: Orders Generic Provider - Comment: Automatically canceled at discontinue of medication order) epoetin mauricio-epbx (RETACRIT) injection 10,000 Units (COMPLETED) 10,000 Units, Intravenous, ONCE IN DIALYSIS/CRRT, On Tue05/30/24 at 0900, For 1 dose, Give during dialysis., Dialysis 0932 ($Given - Provider: Abbie Ramirze, LINDA) epoetin mauricio-epbx (RETACRIT) injection 4,000 Units (COMPLETED) 4,000 Units, Intravenous, ONCE IN DIALYSIS/CRRT, On Tue05/28/24 at 0800, For 1 dose, Give during dialysis., Dialysis 1101 ($Given - Provider: Cintia Valadez, LINDA) heparin (porcine) injection (COMPLETED) 500 Units, Hemodialysis Machine OR IV Push, ONCE IN DIALYSIS/CRRT, On Tue05/28/24 at 0800, For 1 dose, LOADING DOSE Administer loading dose prior to heparin infusion. PRE DIALYSIS RUN Dialysis, Dialysis 0948 ($Given - Provider: Cintia Valadez, LINDA) heparin (porcine) injection (COMPLETED) 500 Units, Hemodialysis Machine OR IV Push, ONCE IN DIALYSIS/CRRT, On Tue05/30/24 at 0730, For 1 dose, LOADING DOSE Administer loading dose prior to heparin infusion. PRE DIALYSIS RUN Dialysis, Dialysis 0933 ($Given - Provider: Abbie Ramirez, LINDA) insulin aspart (NovoLOG) injection (RAPID ACTING) 1-7 [...] Units, Subcutaneous, AT BEDTIME, First dose on Padmaja 05/24/24 at 2200, MEDIUM INSULIN RESISTANCE DOSING [...] to dialysis now)1247 ($Given - Provider: Cecilia Crabtree, LINDA) pantoprazole (PROTONIX) EC tablet 40 mg [...] Pack RN)2222 ($New Bag - Provider: Heidi Koo, LINDA) 0535 ($New Bag - Provider: Marce Leon, [...] dormant line 0807 ($Given - Provider: Edie Pack, RN)1419 ($Given - Provider: Edie Pack, RN)2200 (Canceled Entry - Provider: Orders Generic Provider - Comment: Automatically canceled at discontinue of medication order) 0535 ($Given - Provider: Marce Leon, LINDA)1343 ($Given - Provider: Edie Pack, LINDA)2132 ($Given - Provider: Kristin Lauren, LINDA) 0648 ($Given - Provider: Margarette Griffin RN)1411 (Canceled Entry - Provider: Cecilia Crabtree, [...] ($New Bag - Provider: Abbie Ramirez, LINDA) sodium chloride 0.9% BOLUS 300 mL (COMPLETED) Hemodialysis Machine, 300 mL, ONCE, On Tue05/28/24 at 0800, For 1 dose, For Dialyzer Prime. (In Dialyzer), Dialysis 0945 ($New Bag - Provider: Cintia Valadez, LINDA) sodium chloride 0.9% BOLUS 300 mL (COMPLETED) Hemodialysis Machine, 300 mL, ONCE, On Tue05/30/24 at 0730, For 1 dose, For Dialyzer Prime. (In Dialyzer), Dialysis 0933 ($New Bag - Provider: Abbie Ramirez, LINDA) vitamin B complex with vitamin C (STRESS TAB) tablet 1 tablet 1 tablet, Oral, EVERY EVENING, First dose on Tue05/25/24 at 1999 2048 ($Given - Provider: Heidi Koo, LINDA) 2033 [...] 1 dose 1832 ($Given - Provider: Kristin Lauren RN) Warfarin Dose Required Daily - Pharmacist Managed SEE ADMIN INSTRUCTIONS, Starting on Tue05/26/24 at 1520, Until Tue05/30/24 at 1923, *Note [...] DAILY PRN, heartburn, Starting on Tue05/23/24 at 2047 dextrose 50 % injection 25-50 mL(Linked Group [...] lock dormant line, Starting on Tue05/23/24 at 7 1411 ($Given - Provi norah: Cecilia Crabtree, LINDA) Stop Heparin 60 minutes before end of treatment (CANCELED) CONTINUOUS PRN, Starting on Tue05/30/24 at 0723, Until Tue05/30/24 at 1224, Stop Heparin 60 minutes before end of treatment, Dialysis 0934 ($Given - Provi norah: Abbie Ramirez RN) Linked Groups Order Group 1: glucose gel 15-30 gJump to med 15-30 g, Oral, EVERY 15 MIN PRN, low blood sugar, Starting on Tue05/23/24 at 2047, Give first dose for initial blood glucose [...] stools. documented in this encounter Care Teams Adoption Specialist Relationship Specialty Start Date End Date Cornell Butt PCP - General 06/24/11 documented as of this encounter
--- OUTSIDE RECORDS SUMMARY | 2024-06-04 15:40 | XMS_ITS | Encounter Summary ---
Author Organization [facility] Address [facility]ly [facility], [facility]0 [facility] 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 [address] [place] [address] Tom Castro MD [facility] [id number] [place], [place] [phone] Pan Michelle MD [facility] [id number] [place], [place] [phone] Anesthesia Record Procedure Summary Procedure Name Responsible Anesthesiologist Anesthesia Start Time Anesthesia Stop Time Incision and drainage, debridement of scrotal skin and subcutaneous tissues for necrotizing soft tissue infection of the scrotum (Scrotum) Tom Castro MD 05/23/24 18005/23/241918 Events Date Time Event Comment 05/23/2024 1711 1718 COMMERCIAL TITLE EXAMINER Ready for Procedure 180 AN REASSESS I attest that I have identified and re-evaluated the patient immediately before the induction of anesthesia and I am satisfied that the anesthetic plan is suitable for the patient's condition and procedure. The first vital signs recorded are pre- induction. 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 Questions answered and patient/factory representative(s) expressed understanding. - Discussed: - Discussed [...] Description 07/05/2024 1:15 PM CDT Office Visit [address] [place] [address] Lizandro Barron MD [address] [place] [address] documented as of this encounter Procedures Procedure Name Priority Date/Time Associated Diagnosis Comments ANE AIRWAY ETT PERFORMABLE Routine 05/23/2024 6:21 PM CDT documented in this encounter Results * ANE AIRWAY ETT PERFORMABLE (05/23/2024 6:21 PM CDT) Narrative Donnell Ramos APRN COMMERCIAL TITLE EXAMINER - 05/23/2024 6:21 PM CDT Donnell Ramos APRN COMMERCIAL TITLE EXAMINER ? 05/23/2024 ??6:33 PM Airway ? Patient location during procedure: OR ? Procedure Start/Stop Times: 05/23/2024 6:21 PM Staff - ? COMMERCIAL TITLE EXAMINER: Yasemin Almaguer APRN CRNA ? Performed By: [...] Time: 05/23/2024 6:21 PM Tom Castro MD [place] [facility] documented in this encounter Visit Diagnoses [...] mg documented in this encounter Care Teams Author Relationship Specialty Start Date End Date Preet Huff PCP - General 06/24/11 documented as of this encounter
--- OUTSIDE RECORDS SUMMARY | 2024-06-04 15:41 | XMS_ITS | Encounter Summary ---
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 Medical Decision Making / Diagnosis [facility] [...] Expected time: Means of arrival: Ambulance Comments: Hope Hull 332 documented in this encounter Miscellaneous Notes * Plan of Care - Rand Ochoa OTR - 05/30/2024 5:21 PM CDT Occupational Therapy Discharge Summary Reason for therapy discharge: Discharged to home with home therapy. Progress towards therapy goal(s). See goals on Care Plan in [facility] electronic health record for goal details. Goals partially met. Barriers to achieving goals: discharge from facility. Therapy recommendation(s): Continued therapy is recommended. Rationale/Recommendations: Patient appears safe and able todischarge home with intermittent assist from family with higher level IADLS (just like baseline). Pt wouldbeenfit from HHOT to progress ADL tolerance. Pt not seen by junior copywriter on this date, note written based on [...] of DVT/PE prophylaxis. INR Goal= 2-3 Warfarin MEDICAL VAN DRIVER Regimen: 5 mg M-F and No dose [...] Agree with discharging the patient on their correctional officer captain warfarin regimen of 5 mg M-F [...] Recent Flowsheet Documentation Taken 05/28/20242051 by Heidi Koo, RN Body Position: supine, [...] Flowsheet Documentation Taken 05/28/2024809 by Edie Pack RNwagon driver Interventions: declines Goal: Readiness for Transition of [...] documentation flowsheets. Pertinent assessments: Assumed cares @ [phone].Disoriented to situation and time. VSS on RA. [...] shift note. Outcome: Progressing Flowsheets (Taken 05/28/2024 0625) Outcome Evaluation: Denies pain, slept well. Goal: [...] your shift note. Outcome: Progressing Flowsheets (Taken 05/27/20242) Outcome Evaluation: Wound care complete. BG 148 [...] Flowsheet Documentation Taken 05/27/2024919 by Edie Pack RNwagon driver Interventions: declines Goal: Readiness for Transition of [...] documentation flowsheets. Pertinent assessments: Assumed cares @ [phone].Disoriented to time and situation. VSS on RA. [...] 2-3 Warfarin Prior to Admission: Yes Warfarin MEDICAL VAN DRIVER Regimen: 5 mg M-F and No dose [...] note. Outcome: Not Progressing Flowsheets (Taken 05/26/2024 05) Outcome Evaluation: NPO at midnight per orders, [...] Flowsheet Documentation Taken 05/25/2024 0910 by Jessica Paz, RN Activity Management: bedrest * Pharmacy-Vancomycin Dosing Service - Chucho Zuluaga [facility] - 05/25/2024 3:31 PM CDT Pharmacy Vancomycin [...] shift note. Outcome: Progressing Flowsheets (Taken 05/24/2024 4812) Outcome Evaluation: Scrotal dressing changed twice. Did [...] Fall Risk Recent Flowsheet Documentation Taken 05/24/2024 0000 by Jessica Paz RN Safety Promotion/Fall Prevention: [...] member and Thelma (aunt) via phone and [phone] Pertinent Information: outside meds--none added Changes made to MEDICAL VAN DRIVER medication list: Added: none Deleted: norvasc, lipitor, Changed: protonix Allergies reviewed with patient and updates made in EHR: yes Medication History Completed By: Graham Joseph RPH 05/23/2024 9:51 PM MEDICAL VAN DRIVER Med List Medication Sig Last Dose B Dpjotcs-I-Ahyjl Acid (WESCAPS PO) Take 1 capsule by [...] and procedure to be performed. A 16 Swedish coud?? catheter was placed through the urethra, [...] stable condition. 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) Ordered: 05/30/2024 documented [...] CDT Antonino HERNANDEZ POCT Performing Organization Address [facility]/ZIP Co de Phone Number RH LABORATORY [facility] Acute Care Lab [address] [facility] Lab (1st floor, no room number) [place] [address] * Glucose by meter (05/30/2024 7:13 AM CDT) GLUCOSE BY METER POCT 82 70 - 99 mg/dL 05/30/2024 7:19 AM CDT RH LABORATORY POC Blood, Capillary BLOOD SPECIMEN / Unknown 05/30/2024 7:13 AM CDT 05/30/2024 7:19 AM CDT Antonino HERNANDEZ POCT RH LABORATORY POC [facility] [address] Lab (1st floor, no room number) [place] [address] * (ABNORMAL) INR (05/30/2024 6:54 AM CDT) INR 2.26(H) 0.85 - 1.15 05/30/2024 7:20 AM CDT LABORATORY Blood STRUCTURE OF RIGHT HAND / Unknown Venipuncture / Unknown 05/30/2024 6:54 AM CDT 05/30/2024 7:06 AM CDT Antonino Cheek MD LAB - BLOOD ORDERABL ES Performing Organization Address City/[facility]/ZIP Co de Phone Number RH LABORATORY [facility] [address] Lab (1st floor, no room number) [place] [phone] * (ABNORMAL) Basic metabolic [...] LAB - BLOOD ORDERABL ES RH LABORATORY [facility] [address] [facility] Lab (1st floor, no room number) [place] [address], [facility] * (ABNORMAL) CBC with platelets (05/30/2024 [...] - BLOOD ORDERABL ES LABORATORY [facility] Care Lab [address] Lab (1st floor, no room number) [place] [phone] [place] [address] * (ABNORMAL) Glucose by meter (05/30/2024 2:18 AM CDT) GLUCOSE BY METER POCT 138(H) 70 - 99 mg/dL 05/30/2024 2:24 AM CDT LABORATORY POC Blood, Capillary BLOOD SPECIMEN / Unknown 05/30/2024 2:18 AM CDT 05/30/2024 2:24 AM CDT Antonino DEAN - BEAKER POCT LABORATORY [facility] Lab [address] Lab (1st floor, no room number) [place] [phone] [place] [address] * (ABNORMAL) Glucose by meter (05/29/2024 9:28 PM CDT) GLUCOSE BY METER POCT 160(H) 70 - 99 mg/dL 05/29/2024 9:35 PM CDT LABORATORY POC Blood, Capillary BLOOD SPECIMEN / Unknown 05/29/2024 9:28 PM CDT 05/29/2024 9:35 PM CDT Antonino Cheek MD LAB - BEAKER POCT LABORATORY [facility] Care Lab [address] Lab (1st floor, no room number) [place] [phone], [facility] * (ABNORMAL) Glucose by meter (05/29/2024 5:54 PM CDT) GLUCOSE BY METER POCT 159(H) 70 - 99 mg/dL 05/29/2024 6:01 PM CDT RH LABORATORY POC Blood, Capillary BLOOD SPECIMEN / Unknown 05/29/2024 5:54 PM CDT 05/29/2024 6:01 PM CDT Antonino Cheek MD LAB - BEAKER POCT LABORATORY [facility] Lab [address] Lab (1st floor, no room number) [place] [phone] [place] [address] * (ABNORMAL) Glucose by meter (05/29/2024 1:41 PM CDT) GLUCOSE BY METER POCT 158(H) 70 - 99 mg/dL 05/29/2024 1:48 PM CDT RH LABORATORY POC Blood, Capillary BLOOD SPECIMEN / Unknown 05/29/2024 1:41 PM CDT 05/29/2024 1:48 PM CDT Antonino Cheek MD LAB - BEAKER POCT Performing Organization Address City/[facility]/ZIP Co de Phone Number LABORATORY [facility] Lab [address] Lab (1st floor, no room number) [place] [phone] * Glucose by meter (05/29/2024 7:54 AM CDT) GLUCOSE BY METER POCT 90 70 - 99 mg/dL 05/29/2024 8:01 AM CDT RH LABORATORY POC Blood, Capillary BLOOD SPECIMEN / Unknown 05/29/2024 7:54 AM CDT 05/29/2024 8:01 AM CDT Antonino Cheek MD LAB - BEAKER POCT LABORATORY [facility] Acute Care Lab [address] Lab (1st floor, no room number) [place] [phone] * (ABNORMAL) INR (05/29/2024 6:22 AM CDT) Pathologist [facility] INR 1.92(H) 0.85 - 1.15 05/29/2024 6:52 AM CDT LABORATORY Blood STRUCTURE OF RIGHT HAND / Unknown Venipuncture / Unknown 05/29/2024 6:22 AM CDT 05/29/2024 6:40 AM CDT Antonino Cheek MD LAB - BLOOD ORDERABL ES LABORATORY [facility] Care Lab [address] Lab (1st floor, no room number) [place] [phone] * (ABNORMAL) Basic metabolic panel (05/29/2024 6:22 AM CDT) Pathologist [facility] Sodium 133(L) 135 - 145 mmol/L 05/29/2024 [...] LAB - BLOOD ORDERABL ES RH LABORATORY [facility], no room number) [place] [address] * (ABNORMAL) CBC with [...] Mcneal MD LAB - BLOOD ORDERABL ES [facility] Care Lab [address] Lab (1st floor, no room number) [place] [address], [facility] * (ABNORMAL) Glucose by meter (05/29/2024 2:26 AM CDT) GLUCOSE BY METER POCT 103(H) 70 - 99 mg/dL 05/29/2024 2:33 AM CDT LABORATORY POC Blood, Capillary BLOOD SPECIMEN / Unknown 05/29/2024 2:26 AM CDT 05/29/2024 2:33 AM CDT Antonino DEAN - BEAKER POCT Performing Organization Address [facility]/ZIP Co de Phone Number [facility] Acute Care Lab [address] Lab (1st floor, no room number) [place] [address], [facility] * (ABNORMAL) Glucose by meter (05/28/2024 9:50 PM CDT) GLUCOSE BY METER POCT 102(H) 70 - 99 mg/dL 05/28/2024 9:56 PM CDT LABORATORY POC Blood, Capillary BLOOD SPECIMEN / Unknown 05/28/2024 9:50 PM CDT 05/28/2024 9:56 PM CDT Antonino DEAN - BEAKER POCT LABORATORY [facility] Lab [address] Lab (1st floor, no room number) [place] [phone], [facility] * (ABNORMAL) Glucose by meter (05/28/2024 5:08 PM CDT) GLUCOSE BY METER POCT 254(H) 70 - 99 mg/dL 05/28/2024 5:16 PM CDT RH LABORATORY POC Blood, Capillary BLOOD SPECIMEN / Unknown 05/28/2024 5:08 PM CDT 05/28/2024 5:16 PM CDT Antonino Cheek MD LAB - BEAKER POCT LABORATORY [facility] Care Lab [address] Lab (1st floor, no room number) [address] [place] [address] * Glucose by meter (05/28/2024 1:58 PM CDT) GLUCOSE BY METER POCT 91 70 - 99 mg/dL 05/28/2024 2:05 PM CDT LABORATORY POC Blood, Capillary BLOOD SPECIMEN / Unknown 05/28/2024 1:58 PM CDT 05/28/2024 2:05 PM CDT Antonino Cheek MD LAB - BEAKER POCT Performing Organization Address City/[facility]/ZIP Co de Phone Number LABORATORY [facility] Lab [address] Lab (1st floor, no room number) [address] [place] [address] * (ABNORMAL) Glucose by meter (05/28/2024 7:48 AM CDT) GLUCOSE BY METER POCT 128(H) 70 - 99 mg/dL 05/28/2024 7:54 AM CDT LABORATORY POC Blood, Capillary BLOOD SPECIMEN / Unknown 05/28/2024 7:48 AM CDT 05/28/2024 7:54 AM CDT Antonino Cheek MD LAB - BEAKER POCT LABORATORY [facility] Care Lab [address] Lab (1st floor, no room number) [place] [address] [place] [address] * Extra Purple Top EDTA (LAB USE ONLY) (05/28/2024 6:07 AM CDT) Hold Specimen [facility] 05/28/2024 7:32 AM CDT RH LABORATORY Blood STRUCTURE OF LEFT HAND / Unknown Venipuncture / Unknown 05/28/2024 6:07 AM CDT 05/28/2024 6:17 AM CDT Antonino Cheek MD LAB - BLOOD ORDERABL ES [facility] Lab [address] Lab (1st floor, no room number) [place] [phone] [place] [address] * Extra Green Top Tube (LAB USE ONLY) (05/28/2024 6:07 AM CDT) Hold Specimen [facility] 05/28/2024 7:32 AM CDT RH LABORATORY Blood STRUCTURE OF LEFT HAND / Unknown Venipuncture / Unknown 05/28/2024 6:07 AM CDT 05/28/2024 6:17 AM CDT Antonino Cheek MD LAB - BLOOD ORDERABL ES Performing Organization Address [facility]/ZIP Co de Phone Number [facility] Lab [address] Lab (1st floor, no room number) [place] [phone] [place] [address] * (ABNORMAL) INR (05/28/2024 6:07 AM CDT) INR 1.87(H) 0.85 - 1.15 05/28/2024 6:27 AM CDT RH LABORATORY Blood STRUCTURE OF LEFT HAND / Unknown Venipuncture / Unknown 05/28/2024 6:07 AM CDT 05/28/2024 6:17 AM CDT Antonino Cheek MD LAB - BLOOD ORDERABL ES [facility] Care Lab [address] Lab (1st floor, no room number) [place] [address] * (ABNORMAL) Hemoglobin (05/28/2024 6:07 AM CDT) Hemoglobin 7.7(L) 13.3 - 17.7 g/dL 05/28/2024 9:02 AM CDT LABORATORY Blood STRUCTURE OF LEFT HAND / Unknown Venipuncture / Unknown 05/28/2024 6:07 AM CDT 05/28/2024 6:17 AM CDT Dileep Anders MD LAB - BLOOD ORD ERABLES LABORATORY [facility] [address] [facility] Lab (1st floor, no room number) [place] [phone] * (ABNORMAL) Basic metabolic panel (05/28/2024 6:07 AM CDT) Pathologist [facility] Sodium 136 135 - 145 mmol/L 05/28/2024 [...] MD LAB - BLOOD ORD ERABLES LABORATORY [facility] Lab [address] Lab (1st floor, no room number) [address] [place] [address] * (ABNORMAL) Glucose by meter (05/28/2024 2:19 AM CDT) GLUCOSE BY METER POCT 102(H) 70 - 99 mg/dL 05/28/2024 2:26 AM CDT LABORATORY POC Blood, Capillary BLOOD SPECIMEN / Unknown 05/28/2024 2:19 AM CDT 05/28/2024 2:26 AM CDT Antonino Cheek MD LAB - BEAKER POCT LABORATORY [facility] Lab [address] Lab (1st floor, no room number) [address] * (ABNORMAL) Glucose by meter (05/27/2024 9:05 PM CDT) GLUCOSE BY METER POCT 148(H) 70 - 99 mg/dL 05/27/2024 9:13 PM CDT LABORATORY POC Blood, Capillary BLOOD SPECIMEN / Unknown 05/27/2024 9:05 PM CDT 05/27/2024 9:13 PM CDT Antonino Cheek MD LAB - BEAKER POCT Performing Organization Address [facility]/ZIP Co de Phone Number LABORATORY [facility] Lab [address] Lab (1st floor, no room number) [address] * (ABNORMAL) Glucose by meter (05/27/2024 5:11 PM CDT) GLUCOSE BY METER POCT 148(H) 70 - 99 mg/dL 05/27/2024 5:20 PM CDT RH LABORATORY POC Blood, Capillary BLOOD SPECIMEN / Unknown 05/27/2024 5:11 PM CDT 05/27/2024 5:20 PM CDT Antonino DEAN - DAVID POCT Performing Organization Address [facility]/ZIP Co de Phone Number LABORATORY [facility] Care Lab [address] Lab (1st floor, no room number) [address] * (ABNORMAL) Glucose by meter (05/27/2024 11:42 AM CDT) GLUCOSE BY METER POCT 149(H) 70 - 99 mg/dL 05/27/2024 11:49 AM CDT RH LABORATORY POC Blood, Capillary BLOOD SPECIMEN / Unknown 05/27/2024 11:42 AM CDT 05/27/2024 11:49 AM CDT Antonino HERNANDEZ POCT Performing Organization Address [facility]/ZIP Co de Phone Number LABORATORY [facility] Lab [address] Lab (1st floor, no room number) [address] * (ABNORMAL) Glucose by meter (05/27/2024 7:44 AM CDT) GLUCOSE BY METER POCT 108(H) 70 - 99 mg/dL 05/27/2024 7:51 AM CDT RH LABORATORY POC Blood, Capillary BLOOD SPECIMEN / Unknown 05/27/2024 7:44 AM CDT 05/27/2024 7:51 AM CDT Antonino Cheek MD LAB - BEAKER POCT Performing Organization Address [facility]/State/ZIP Co de Phone Number LABORATORY [facility] Care Lab [address] Lab (1st floor, no room number) [place] [address] * (ABNORMAL) INR (05/27/2024 7:03 AM CDT) INR 1.81(H) 0.85 - 1.15 05/27/2024 7:17 AM CDT LABORATORY Blood STRUCTURE OF RIGHT HAND / Unknown Venipuncture / Unknown 05/27/2024 7:03 AM CDT 05/27/2024 7:07 AM CDT Antonino Cheek MD LAB - BLOOD ORDERABL ES Performing Organization Address [facility]/ZIP Co de Phone Number [facility] Lab [address] Lab (1st floor, no room number) [place] [address] * (ABNORMAL) Glucose by meter (05/27/2024 2:03 AM CDT) GLUCOSE BY METER POCT 157(H) 70 - 99 mg/dL 05/27/2024 2:10 AM CDT LABORATORY POC Blood, Capillary BLOOD SPECIMEN / Unknown 05/27/2024 2:03 AM CDT 05/27/2024 2:10 AM CDT Antonino Cheek MD LAB - BEAKER POCT Performing Organization Address City/[facility]/ZIP Co de Phone Number LABORATORY [facility] Lab [address] Lab (1st floor, no room number) [place] [phone] * (ABNORMAL) Glucose by meter (05/26/2024 9:29 PM CDT) GLUCOSE BY METER POCT 155(H) 70 - 99 mg/dL 05/26/2024 9:37 PM CDT RH LABORATORY POC Blood, Capillary BLOOD SPECIMEN / Unknown 05/26/2024 9:29 PM CDT 05/26/2024 9:37 PM CDT Antonino Cheek MD LAB - BEAKER POCT LABORATORY [facility] Lab [address] Lab (1st floor, no room number) [place] [phone] [place] [address] * (ABNORMAL) Glucose by meter (05/26/2024 4:10 PM CDT) GLUCOSE BY METER POCT 174(H) 70 - 99 mg/dL 05/26/2024 4:19 PM CDT LABORATORY POC Blood, Capillary BLOOD SPECIMEN / Unknown 05/26/2024 4:10 PM CDT 05/26/2024 4:19 PM CDT Antonino DEAN - BEAKER POCT Performing Organization Address City/[facility]/ZIP Co de Phone Number LABORATORY [facility] Lab [address] Lab (1st floor, no room number) [place] [phone], [facility] * (ABNORMAL) INR (05/26/2024 4:09 PM CDT) INR 1.67(H) 0.85 - 1.15 05/26/2024 4:28 PM CDT LABORATORY Blood STRUCTURE OF LEFT UPPER LIMB / Unknown Venipuncture / Unknown 05/26/2024 4:09 PM CDT 05/26/2024 4:15 PM CDT Antonino Cheek MD LAB - BLOOD ORDERABL ES [facility] Care Lab [address] Lab (1st floor, no room number) [place] [address], [facility] * (ABNORMAL) Glucose by meter (05/26/2024 11:37 AM CDT) GLUCOSE BY METER POCT 197(H) 70 - 99 mg/dL 05/26/2024 11:44 AM CDT RH LABORATORY POC Blood, Capillary BLOOD SPECIMEN / Unknown 05/26/2024 11:37 AM CDT 05/26/2024 11:44 AM CDT Antonino Cheek MD LAB - BEAKER POCT LABORATORY [facility] Lab [address] Lab (1st floor, no room number) [place] [phone] [place] [address] * Glucose by meter (05/26/2024 8:22 AM CDT) GLUCOSE BY METER POCT 85 70 - 99 mg/dL 05/26/2024 8:29 AM CDT LABORATORY POC Blood, Capillary BLOOD SPECIMEN / Unknown 05/26/2024 8:22 AM CDT 05/26/2024 8:29 AM CDT Antonino DEAN - DAVID POCT Performing Organization Address City/[facility]/ZIP Co de Phone Number LABORATORY [facility] Lab [address] Lab (1st floor, no room number) [address] * (ABNORMAL) CBC with platelets and [...] LAB - BLOOD ORDERABL ES RH LABORATORY [facility] [address] [facility] Lab (1st floor, no room number) [place] [address], [facility] * (ABNORMAL) Basic metabolic panel (05/26/2024 5:47 [...] Cheek MD LAB - BLOOD ORDERABL ES [facility] Lab [address] Lab (1st floor, no room number) [place] [address] * (ABNORMAL) Glucose by meter (05/26/2024 1:57 AM CDT) GLUCOSE BY METER POCT 123(H) 70 - 99 mg/dL 05/26/2024 2:04 AM CDT LABORATORY POC Blood, Capillary BLOOD SPECIMEN / Unknown 05/26/2024 1:57 AM CDT 05/26/2024 2:04 AM CDT Antonino Cheek MD LAB - BEAKER POCT Performing Organization Address [facility]/ZIP Co de Phone Number LABORATORY [facility] Lab [address] Lab (1st floor, no room number) [place] [address] * (ABNORMAL) Glucose by meter (05/25/2024 9:32 PM CDT) GLUCOSE BY METER POCT 155(H) 70 - 99 mg/dL 05/25/2024 9:39 PM CDT LABORATORY POC Blood, Capillary BLOOD SPECIMEN / Unknown 05/25/2024 9:32 PM CDT 05/25/2024 9:39 PM CDT Antonino Cheek MD LAB - BEAKER POCT LABORATORY [facility] Lab [address] Lab (1st floor, no room number) [place] [id number] * (ABNORMAL) Glucose by meter (05/25/2024 7:06 PM CDT) GLUCOSE BY METER POCT 183(H) 70 - 99 mg/dL 05/25/2024 7:14 PM CDT RH LABORATORY POC Blood, Capillary BLOOD SPECIMEN / Unknown 05/25/2024 7:06 PM CDT 05/25/2024 7:14 PM CDT Antonino Cheek MD LAB - BEAKER POCT LABORATORY POC [facility] Care Lab [address] Lab (1st floor, no room number) [place] [address] * (ABNORMAL) Glucose by meter (05/25/2024 5:29 PM CDT) GLUCOSE BY METER POCT 142(H) 70 - 99 mg/dL 05/25/2024 5:36 PM CDT LABORATORY POC Blood, Capillary BLOOD SPECIMEN / Unknown 05/25/2024 5:29 PM CDT 05/25/2024 5:36 PM CDT Antonino Cheek MD LAB - BEAKER POCT LABORATORY [facility] Care Lab [address] Lab (1st floor, no room number) [place] [phone] * Vancomycin level (05/25/2024 2:04 PM CDT) Vancomycin 11.9 ug/mL 05/25/2024 3:28 PM CDT RH LABORATORY Comment: Traditional Dosing Therapeutic Range: Trough 10-15 ug/mL Peak 20-40 ug/mL Critical: Greater than 25.0 ug/mL Blood STRUCTURE OF RIGHT UPPER LIMB / Unknown Venipuncture / Unknown 05/25/2024 2:04 PM CDT 05/25/2024 2:07 PM CDT Antonino Cheek MD LAB - BLOOD ORDERABL ES LABORATORY [facility] [address] Lab (1st floor, no room number) [place] [address] [place] [address] * Extra Purple Top EDTA (LAB USE ONLY) (05/25/2024 2:04 PM CDT) Hold Specimen [facility] 05/25/2024 3:17 PM CDT RH LABORATORY Blood STRUCTURE OF RIGHT UPPER LIMB / Unknown Venipuncture / Unknown 05/25/2024 2:04 PM CDT 05/25/2024 2:07 PM CDT Antonino Cheek MD LAB - BLOOD ORDERABL ES LABORATORY [facility] Lab [address] Lab (1st floor, no room number) [address] * Extra Green Top Tube (LAB USE ONLY) (05/25/2024 2:04 PM CDT) Hold Specimen [facility] 05/25/2024 3:17 PM CDT LABORATORY Blood STRUCTURE OF RIGHT UPPER LIMB / Unknown Venipuncture / Unknown 05/25/2024 2:04 PM CDT 05/25/2024 2:07 PM CDT Antonino Cheek MD LAB - BLOOD ORDERABL ES Performing Organization Address [facility]/ZIP Co de Phone Number [facility] Lab [address] Lab (1st floor, no room number) [address] * Glucose by meter (05/25/2024 2:01 PM CDT) GLUCOSE BY METER POCT 70 70 - 99 mg/dL 05/25/2024 2:08 PM CDT LABORATORY POC Blood, Capillary BLOOD SPECIMEN / Unknown 05/25/2024 2:01 PM CDT 05/25/2024 2:08 PM CDT Antonino Cheek MD LAB - BEAKER POCT LABORATORY POC [facility] Lab [address] [facility] Lab (1st floor, no room number) [place] [address], [facility] * Hepatitis B surface antigen (05/25/2024 9:25 AM CDT) [facility] Hepatitis B Surface Antigen Nonreactive Nonreactive 05/25/2024 2:23 PM CDT UU LABORATORY Blood BLOOD SPECIMEN / Unknown Venipuncture / Unknown 05/25/2024 9:25 AM CDT 05/25/2024 10:13 AM CDT Jose Enrique Naylor MD LAB - BLOOD ORDERABL ES Performing Organization Address City/[facility]/ZIP Co de Phone Number U LABORATORY [facility] [place] [facility] [address] [facility], [facility] [address] [phone] * Hepatitis B Surface Antibody (05/25/2024 9:25 AM CDT) [facility] Hepatitis B Surface Antibody Reactive [...] LAB - BLOOD ORDERABL ES U LABORATORY [facility] [place] [facility] [address] [facility], Room [address] [address] * Glucose by meter (05/25/2024 5:35 AM CDT) GLUCOSE BY METER POCT 86 70 - 99 mg/dL 05/25/2024 5:42 AM CDT RH LABORATORY POC Blood, Capillary BLOOD SPECIMEN / Unknown 05/25/2024 5:35 AM CDT 05/25/2024 5:42 AM CDT Antonino Cheek MD LAB - BEAKER POCT LABORATORY [facility] Lab [address] Lab (1st floor, no room number) [place] [phone], [facility] * Glucose by meter (05/25/2024 2:01 AM CDT) GLUCOSE BY METER POCT 86 70 - 99 mg/dL 05/25/2024 2:08 AM CDT LABORATORY POC Blood, Capillary BLOOD SPECIMEN / Unknown 05/25/2024 2:01 AM CDT 05/25/2024 2:08 AM CDT Antonino Cheek MD LAB - BEAKER POCT LABORATORY [facility] Lab [address] Lab (1st floor, no room number) [place] [address], [facility] * Glucose by meter (05/24/2024 8:52 PM CDT) GLUCOSE BY METER POCT 96 70 - 99 mg/dL 05/24/2024 8:59 PM CDT LABORATORY POC Blood, Capillary BLOOD SPECIMEN / Unknown 05/24/2024 8:52 PM CDT 05/24/2024 8:59 PM CDT Antonino Cheek MD LAB - BEAKER POCT LABORATORY [facility] Lab [address] Lab (1st floor, no room number) [place] [address], [facility] * Glucose by meter (05/24/2024 5:05 PM CDT) GLUCOSE BY METER POCT 84 70 - 99 mg/dL 05/24/2024 5:32 PM CDT RH LABORATORY POC Blood, Capillary BLOOD SPECIMEN / Unknown 05/24/2024 5:05 PM CDT 05/24/2024 5:32 PM CDT Antonino Cheek MD LAB - BEAKER POCT LABORATORY [facility] Lab [address] Lab (1st floor, no room number) [place] [address], [facility] * (ABNORMAL) INR (05/24/2024 2:16 PM CDT) INR 1.16(H) 0.85 - 1.15 05/24/2024 2:34 PM CDT RH LABORATORY Blood BLOOD SPECIMEN / Unknown Venipuncture / Unknown 05/24/2024 2:16 PM CDT 05/24/2024 2:21 PM CDT Lizandro Barron MD LAB - BLOOD ORDERABL ES Performing Organization Address [facility]/ZIP Co de Phone Number [facility] [address] Lab (1st floor, no room number) [place] [address], [facility] * Glucose by meter (05/24/2024 12:20 PM CDT) GLUCOSE BY METER POCT 75 70 - 99 mg/dL 05/24/2024 12:26 PM CDT LABORATORY POC Blood, Capillary BLOOD SPECIMEN / Unknown 05/24/2024 12:20 PM CDT 05/24/2024 12:26 PM CDT Antonino Cheek MD LAB - BEAKER POCT LABORATORY [facility] Lab [address] Lab (1st floor, no room number) [place] [address] * Glucose by meter (05/24/2024 9:12 AM CDT) GLUCOSE BY METER POCT 86 70 - 99 mg/dL 05/24/2024 9:19 AM CDT RH LABORATORY POC Blood, Capillary BLOOD SPECIMEN / Unknown 05/24/2024 9:12 AM CDT 05/24/2024 9:19 AM CDT Antonino Cheek MD LAB - BEAKER POCT RH LABORATORY POC [facility] [address] Lab (1st floor, no room number) [place] [phone] * (ABNORMAL) CBC with [...] LAB - BLOOD ORDERABL ES RH LABORATORY [facility] [address] Lab (1st floor, no room number) [place] [address], [facility] * (ABNORMAL) Comprehensive metabolic panel (05/24/2024 [...] - BLOOD ORDERABL ES Performing Organization Address [facility]/ZIP Co de Phone Number [facility] Lab [address] Lab (1st floor, no room number) [place] [phone] * INR (05/24/2024 6:09 AM CDT) INR 1.14 0.85 - 1.15 05/24/2024 6:27 AM CDT RH LABORATORY Blood STRUCTURE OF LEFT HAND / Unknown Venipuncture / Unknown 05/24/2024 6:09 AM CDT 05/24/2024 6:14 AM CDT Lizandro Barron MD LAB - BLOOD ORDERABL ES Performing Organization Address [facility]/ZIP Co de Phone Number [facility] [address] Lab (1st floor, no room number) [place] [phone] * (ABNORMAL) Glucose by meter (05/24/2024 4:49 AM CDT) GLUCOSE BY METER POCT 119(H) 70 - 99 mg/dL 05/24/2024 4:56 AM CDT LABORATORY POC Blood, Capillary BLOOD SPECIMEN / Unknown 05/24/2024 4:49 AM CDT 05/24/2024 4:56 AM CDT Antonino Cheek MD LAB - BEAKER POCT LABORATORY [facility] Lab [address] Lab (1st floor, no room number) [place] [phone] [place] [address] * (ABNORMAL) Glucose by meter (05/24/2024 1:13 AM CDT) GLUCOSE BY METER POCT 100(H) 70 - 99 mg/dL 05/24/2024 1:20 AM CDT LABORATORY POC Blood, Capillary BLOOD SPECIMEN / Unknown 05/24/2024 1:13 AM CDT 05/24/2024 1:20 AM CDT Antonino DEAN - BEAKER POCT LABORATORY [facility] Lab [address] Lab (1st floor, no room number) [address] [place] [address] * INR (05/23/2024 10:19 PM CDT) INR 1.04 0.85 - 1.15 05/23/2024 10:43 PM CDT LABORATORY Blood STRUCTURE OF LEFT UPPER LIMB / Unknown Venipuncture / Unknown 05/23/2024 10:19 PM CDT 05/23/2024 10:26 PM CDT Lizandro Barron MD LAB - BLOOD ORDERABL ES Performing Organization Address [facility]/ZIP Co de Phone Number [facility] [address] Lab (1st floor, no room number) [place] [phone] [place] [address] * Glucose by meter (05/23/2024 9:58 PM CDT) GLUCOSE BY METER POCT 83 70 - 99 mg/dL 05/23/2024 10:04 PM CDT LABORATORY POC Blood, Capillary BLOOD SPECIMEN / Unknown 05/23/2024 9:58 PM CDT 05/23/2024 10:04 PM CDT Antonino DEAN - BEAKER POCT LABORATORY [facility] Lab [address] Lab (1st floor, no room number) [place] [phone] [place] [address] * (ABNORMAL) Glucose by meter (05/23/2024 9:06 PM CDT) GLUCOSE BY METER POCT 47(LL) 70 - 99 mg/dL 05/23/2024 9:13 PM CDT RH LABORATORY POC Comment:Dr/RN Notified Blood, Capillary BLOOD SPECIMEN / Unknown 05/23/2024 9:06 PM CDT 05/23/2024 9:13 PM CDT Antonino Cheek MD LAB - BEAKER POCT LABORATORY [facility] Lab [address] Lab (1st floor, no room number) [place] [phone], [facility] * Glucose by meter (05/23/2024 8:41 PM CDT) GLUCOSE BY METER POCT 78 70 - 99 mg/dL 05/23/2024 8:48 PM CDT LABORATORY POC Blood, Capillary BLOOD SPECIMEN / Unknown 05/23/2024 8:41 PM CDT 05/23/2024 8:48 PM CDT Antonino Cheek MD LAB - BEAKER POCT Performing Organization Address City/[facility]/ZIP Co de Phone Number LABORATORY [facility] Lab [address] Lab (1st floor, no room number) [place] [address], [facility] * (ABNORMAL) Glucose by meter (05/23/2024 7:55 PM CDT) GLUCOSE BY METER POCT 67(L) 70 - 99 mg/dL 05/23/2024 8:02 PM CDT LABORATORY POC Blood, Capillary BLOOD SPECIMEN / Unknown 05/23/2024 7:55 PM CDT 05/23/2024 8:02 PM CDT Antonino Cheek MD LAB - BEAKER POCT LABORATORY [facility] Lab [address] Lab (1st floor, no room number) [place] [address], [facility] * (ABNORMAL) Tissue Aerobic [...] Barron MD LAB - MICRO GENERAL ORDERABLES Performing Organization Address City/[facility]/ZIP Co de Phone Number UU IDD LABORATORY [facility] Inf. Diseases Diag. Lab [address] [facility], Room [address] * (ABNORMAL) Gram Stain (05/23/2024 6:42 [...] - MICRO GENERAL ORDERABLES UU IDD LABORATORY [facility] Inf. Diseases Diag. Lab [address] [facility], Room [address] * Anaerobic Bacterial Culture Routine (05/23/2024 6:42 PM CDT) Culture 4+ Mixed Aerobic and Anaerobic dev JOJO 05/25/2024 2:01 PM CDT UU IDD LABORATORY Comment:No predominant organ ism Tissue SCROTAL STRUCTURE / Unknown Non-blood Collection / Unknown 05/23/2024 6:42 PM CDT 05/23/2024 6:46 PM CDT Lizandro Barron MD LAB - MICRO GENERAL ORDERABLES UU IDD LABORATORY [facility] Inf. Diseases Diag. Lab [address] [facility], [address] [place] [address] * Glucose by meter (05/23/2024 5:41 PM CDT) GLUCOSE BY METER POCT 90 70 - 99 mg/dL 05/23/2024 5:49 PM CDT LABORATORY POC Blood, Capillary BLOOD SPECIMEN / Unknown 05/23/2024 5:41 PM CDT 05/23/2024 5:49 PM CDT Vi Coe DO LAB - BEAKER POC T LABORATORY POC [facility] [address] Lab (1st floor, no room number) [place] [address] * EKG 12-lead, [...] RESULTS QTc 458 ms RADIOLOGY RESULTS P [place] 54 degrees RADIOLOGY RESULTS R AXIS -5 degrees RADIOLOGY RESULTS T [place] 24 degrees RADIOLOGY RESULTS Interpretation ECG Sinus rhythm with 1st degree A-V block Septal infarct , age undetermined Abnormal ECG When compared with ECG of 02-Mar-2024 14:00, Septal infarct is now Present No significant change was found Confirmed by - EMERGENCY ROOM, PHYSICIAN ([id number]), map editor LIZANDRO ZABALA ([id number]) on 05/24/2024 6:44:53 AM RADIOLOGY RESULTS 05/23/2024 5:08 PM CDT 05/24/2024 6:44 AM CDT Pan Michelle MD ECG ORDERABLES RADIOLOGY RESULTS * (ABNORMAL) INR (05/23/2024 3:42 PM CDT) INR 1.29(H) 0.85 - 1.15 05/23/2024 4:21 PM CDT LABORATORY Blood BLOOD SPECIMEN / Unknown Venipuncture / Unknown 05/23/2024 3:42 PM CDT 05/23/2024 3:45 PM CDT Vi Coe DO LAB - BLOOD ORDE MYRANDA LABORATORY [facility] [address] Lab (1st floor, no room number) [place] [address] * CT Abdomen Pelvis [...] 2:35 PM. MIKE LIPSCOMB MD SYSTEM ID: ??[id number] Narrative 05/23/2024 2:[address] ABDOMEN [...] veins which are not included in the [id number]. MUSCULOSKELETAL: Stable degenerative changes at L4-L5 with [...] veins which are not included in the [id number]. 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 No destructive lesions in the bones. IMPRESSION: 1. 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 2. Other chronic findings as discussed above. Findings were discussed with Dr. Kenna Coe at 2:35 PM. MIKE LIPSCOMB MD SYSTEM ID: [id number] Vi Coe DO IMG CT ORDERABLE S * Adult Type and Screen (05/23/2024 2:07 PM CDT) ABO/RH(D) O POS 05/23/2024 1:37 PM CDT RH BLOOD BANK Antibody Screen Negative Negative 05/23/2024 1:37 PM CDT RH BLOOD BANK SPECIMEN EXPIRATION DATE [id number] 05/23/2024 1:37 PM CDT RH BLOOD BANK Blood BLOOD SPECIMEN / Unknown Venipuncture / Unknown 05/23/2024 2:07 PM CDT 05/23/2024 2:10 PM CDT Vi Coe DO LAB - BLOOD BANK TEST ORDER BLOOD BANK [address] [place] [address], [facility] * (ABNORMAL) CBC with platelets [...] Coe DO LAB - BLOOD ORDE MYRANDA [facility] Organization Address City/State/ZIP Co de Phone Number RH LABORATORY [facility] [address] Lab (1st floor, no room number) [place] [address] * Lactic acid whole blood (05/23/2024 1:50 PM CDT) Pathologist [facility] Lactic Acid 0.9 0.7 - 2.0 mmol/L 05/23/2024 1:57 PM CDT RH LABORATORY Blood BLOOD SPECIMEN / Unknown Venipuncture / Unknown 05/23/2024 1:50 PM CDT 05/23/2024 1:54 PM CDT Vi Coe DO LAB - BLOOD ORDE RABLES [facility] Lab [address] Lab (1st floor, no room number) [place] [address] * Blood Culture Peripheral Blood (05/23/2024 1:50 PM CDT) [facility] Culture No Growth 05/28/2024 4:06 PM CDT UU IDD LABORATORY Blood BLOOD SPECIMEN / Unknown Venipuncture / Unknown 05/23/2024 1:50 PM CDT 05/23/2024 1:53 PM CDT Vi Coe DO LAB - MICRO GENE RAL ORDERABLES UU IDD LABORATORY [facility] Inf. Diseases Diag. Lab [address] [facility], [address] [place] [address] * (ABNORMAL) Comprehensive metabolic panel (05/23/2024 1:50 PM CDT) Pathologist [facility] Sodium 134(L) 135 - 145 mmol/L 05/23/2024 [...] - 150 U/L 05/23/2024 2:21 PM CDT LABORATORY AST 21 0 - 45 U/L [...] Coe DO LAB - BLOOD ROVERTO WHITMORE [facility] Lab [address] Lab (1st floor, no room number) [place] [address], [facility] * (ABNORMAL) INR (05/23/2024 1:50 PM CDT) INR >10.00(HH) 0.85 - 1.15 05/23/2024 2:30 PM CDT LABORATORY Blood BLOOD SPECIMEN / Unknown Venipuncture / Unknown 05/23/2024 1:50 PM CDT 05/23/2024 1:55 PM CDT Vi Coe DO LAB - BLOOD ROVERTO WHITMORE [facility] [address] Lab (1st floor, no room number) [place] [address], [facility] documented in this encounter Visit [...] Oral, EVERY OTHER DAY, First dose on Padmaja 05/24/24 at 0900, Hold for loose stools. $Given [...] dormant line, Starting on Tue05/23/24 at 7 $Given 05/30/2024 2:1 1 PM CDT 3 [...] Edie Pack RN)1831 ($Given - Provider: Heidi Koo, LINDA) 0939 ($Given - Provider: Edie Pack RN)1343 ($Given - Provider: Edie Pack RN)1832 ($Given - Provider: Kristin Lauren RN) 0807 (Not Given - Provider: Cecilia Crabtree, LINDA - Reason: Patient not available - Comment: [...] Edie Pack, RN)1419 ($Given - Provider: Edie Pack RN)2200 (Canceled Entry - Provider: Orders Generic Provider - Comment: Automatically canceled at discontinue of medication order) 0535 ($Given - Provider: Marce Leon, LINDA)1343 ($Given - Provider: Edie Pack, LINDA)2132 ($Given - Provider: Kristin Lauren, LNIDA) 0648 ($Given - Provider: Margarette Griffin RN)1411 [...] 2046 1411 ($Given - Provi norah: Cecilia Crabtree, [...] stools. documented in this encounter Care Teams Fuel Assembler Relationship Specialty Start Date End Date Cornell Butt PCP - General 06/24/11 documented as of this encounter
--- OUTSIDE RECORDS SUMMARY | 2024-06-04 15:41 | XMS_ITS | Encounter Summary ---
Author Organization [place] Address [address] [facility] 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
--- OUTSIDE RECORDS SUMMARY | 2024-06-04 15:42 | XMS_ITS | Encounter Summary ---
Author Organization [facility] Address [address] [place] [id number] Care Team Providers Care Pulp Press Tender Name Role Phone Refugio Cornell Hans Primary Care Provider [phone] Reason for Visit * Reason Comments Generalized Weakness * Auth/Cert (Routine) Specialty Diagnoses / Procedures Referred By Contac t Referred To Contact Med Surg Diagnoses Black stool Anemia, unspecified type Anemia, unspecified type Black stool 5 Medical Surgical [address] [place] [address] Referral ID Status Reason Start Date Expiration Date Visits Re quested Visits Authorized [id number] 1 1 Encounter Details Date Type Department Care Team ([facility] st Contact Info) Description 03/02/2024 1:54 PM CDT - 03/12/2024 4:36 PM CDT Hospital Encounter [facility] 5 Medical Surgical [address] [place] [address] Raúl Bernard MD [facility] [address] [place] [address] Ron Tripathi MD [address] [place] [address] Hypoglycemia (Primary Dx); Anemia, unspecified type; Black stool; Gastrointestinal hemorrhage, unspecified gastrointestinal hemorrhage type Discharge Disposition: Home-Health Care [facility] Social History Tobacco Use Types Packs/Day Years [...] file Gender Identity Male 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 [facility] Hospitalist Discharge Summary Date of Admission: [...] minutes discharging this patient. Nicolasa Luke DO [place] [address] MEDICAL SURGICAL [address] [facility] [address] Physical Exam Vital Signs: Temp: 98.4 ??F [...] US UPPER EXTREMITY VENOUS DUPLEX RIGHT LOCATION: [facility] DATE: 03/07/2024 INDICATION: Swelling, looking [...] EXAM: XR CHEST PORT 1 VIEW LOCATION: [facility] DATE: 03/11/2024 INDICATION: Shortness of [...] Refills: 3 Associated Diagnoses: Mixed hyperlipidemia B Jjfmsnj-H-Wisfw Acid (WESCAPS PO) Take 1 capsule by [...] sent through Care Everywhere. 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 Contacted Aunsalvador Renee to confirm that transportation needed to be set up. She stated they use [facility] for his dialysis appointments. Called [facility] and they are unable to provide transportation on short notice and they would not have openings today. Discussed with patients Aunt and she is agreeable to having set up [facility] transport and is aware of the potential cost if insurance does not cover. Contacted [facility] and transport set up for [phone]. Aunt will be at home to accept and she confirms a ramp in the rear of the home. Lynne Cárdenas SOFTWARE DEVELOPMENT COORDINATOR OCN Chop Saw Operator [facility] [phone] * Lynne Cárdenas RN - 03/12/2024 1:41 PM CDT Care Management Discharge Note Discharge Date: 03/12/2024 Discharge Disposition: Home Discharge Services: AERONAUTICAL DRAFTER Discharge DME: None Discharge Transportation: agency, other (see comments) ([facility]) Private pay costs discussed: Not applicable Does [...] reach her or aunt who is patients AERONAUTICAL DRAFTER. Left voice mail. Lynne Cárdenas SOFTWARE DEVELOPMENT COORDINATOR [facility] Chop Saw Operator [facility] [phone] * Melissa Dewey RN - 03/12/2024 12:36 [...] checked every 4 hours. Outpatient Dialysis at [facility]. Patient repositioned every 2 hours during [...] Interval History: Dialysis run parameters reviewed with pelts skinner at patient bedside. Seen on run Resting [...] this interval not displayed. Wojciech Holman MD [facility] - Nephrology [phone] * Jose Enrique Naylor MD - 03/11/2024 10:24 AM CDT Chart reviewed. Labs and vitals reviewed. Sodium better at 126. Potassium okay. No indication for dialysis today. Noted an episode of vomiting and AIRCRAFT MOTOR MECHANIC. Chest x-ray appears clear without pulmonary congestion [...] displayed. Jose Enrique Naylor MD [facility] - Nephrology [phone] * Nicolasa Luke DO - 03/11/2024 9:13 AM CDT [facility] Medicine Progress Note - Hospitalist [...] 1 unit with hgb this AM 7.8 -AIRCRAFT MOTOR MECHANIC overnight had episode of emesis, CPAP was [...] of 03/03. Appeared to be asymptomatic - AIRCRAFT MOTOR MECHANIC called for EGD 03/06 because of hypoglycemia. [...] with Mother and Aunt (who is his AERONAUTICAL DRAFTER) Hx of CVA Legally Blind Hypertension Hyperlipidemia [...] with help/services Nicolasa Luke DO Hospitalist Service [facility] Securely message with Caremerge (more info) Text page via [facility] Paging/Directory Physical Exam Vital Signs: Temp: [...] Jacobsen RN - 03/11/2024 3:23 AM CDT AIRCRAFT MOTOR MECHANIC called. Patient had received 1 unit of blood earlier in the evening. Had cpap put on for the night. catering staff member and advertising writer came into the room and cpap mask was off and patient was on his left side and had vomited. Emesis was yellow in color with some food chunks. Vomit was not evident in the cpap mask. Respiratory was paged and came to see the patient at the bedside. Cross cover was also paged. AIRCRAFT MOTOR MECHANIC was then called incase patient had aspirated on vomit. Cpap was not placed back on patient after emesis episode. * Portia Domingo, RT - 03/11/2024 3:10 AM CDT Attended AIRCRAFT MOTOR MECHANIC that was called due to pt vomiting. [...] - 03/11/2024 3:07 AM CDT Responded to AIRCRAFT MOTOR MECHANIC called for an episode of emesis. Patient [...] Romero DO - 03/10/2024 10:27 AM CDT [facility] Hospitalist Progress Note Name: Herminio Victor [...] for recheck this evening. Updated mother Arianna Flynn/AERONAUTICAL DRAFTER Thelma via phone. All questions answered. Problem [...] of 03/03. Appeared to be asymptomatic - AIRCRAFT MOTOR MECHANIC called for EGD 03/06 because of hypoglycemia. [...] with Mother and Aunt (who is his AERONAUTICAL DRAFTER) Hx of CVA Legally Blind Hypertension Hyperlipidemia [...] the past 24 hour(s)). Aashish Romero DO [facility] Hospitalist [place] [address] Securely message with Caremerge (more info) Text page via [facility] Paging/Directory 03/10/2024 * Portia Domingo RT - [...] sodium Jose Enrique Naylor MD [facility] - Nephrology [phone] Interval History : Seen / examined on [...] evaluation, reviewing documentation/test results, and service order expediter. Discussed with Dr. Earl. Will no longer follow. Please call with questions or change in condition. Ebony Cheek PA-C [facility] ( [facility]) * Cintia Valadez RN - 03/09/2024 [...] to treatment See Adult Hemodialysis flowsheet in [facility] for further details and post assessment. Machine [...] Cheek MD - 03/09/2024 8:28 AM CDT [facility] Medicine Progress Note - Hospitalist Service [...] of 03/03. Appeared to be asymptomatic - AIRCRAFT MOTOR MECHANIC called for EGD 03/06 because of hypoglycemia. [...] with Mother and Aunt (who is his AERONAUTICAL DRAFTER) Hx of CVA Legally Blind Hypertension Hyperlipidemia [...] 2-4 Days Antonino Cheek MD Hospitalist Service [facility] Securely message with Caremerge (more info) Text page via [facility] Paging/Directory Interval History Denies any symptoms [...] displayed. Jose Enrique Naylor MD [facility] - Nephrology [phone] * Antonino Cheek MD - 03/08/2024 8:22 AM CDT [facility] Medicine Progress Note - Hospitalist Service [...] of 03/03. Appeared to be asymptomatic - AIRCRAFT MOTOR MECHANIC called for EGD 03/06 because of hypoglycemia. [...] with Mother and Aunt (who is his AERONAUTICAL DRAFTER) Hx of CVA Legally Blind Hypertension Hyperlipidemia [...] 2-4 Days Antonino Cheek MD Hospitalist Service [facility] Securely message with Caremerge (more info) Text page via [facility] Paging/Directory Interval History Patient denies chest [...] Pulse: 81 Resp: 18 SpO2: 91 % T1Kqgbnu: Nasal cannula Oxygen Delivery: 2 LPM Weight: [...] US UPPER EXTREMITY VENOUS DUPLEX RIGHT LOCATION: [facility] DATE: 03/07/2024 INDICATION: Swelling, looking [...] checked every 4 hours. Outpatient Dialysis at [facility] Patient repositioned every 2 hours during the treatment. Pre & Post treatment report called to Anusha Lindsey RN Please note: Please remove patient dressing on AVF and AVG needle sites 24 hours after dialysis. Ifleaking occurs please apply a Band-Aid. Melissa Newton RN * Antonino Cheek MD - 03/07/2024 4:12 PM CDT [facility] Medicine Progress Note - Hospitalist Service [...] of 03/03. Appeared to be asymptomatic - AIRCRAFT MOTOR MECHANIC called for EGD 03/06 because of hypoglycemia. [...] with Mother and Aunt (who is his AERONAUTICAL DRAFTER) Hx of CVA Legally Blind Hypertension Hyperlipidemia [...] 2-4 Days Antonino Cheek MD Hospitalist Service [facility] Securely message with Caremerge (more info) Text page via [facility] Paging/Directory Interval History Patient denies symptoms, [...] sodium Jose Enrique Naylor MD [facility] - Nephrology [phone] Interval History : Seen / examined. No [...] and thrill Labs: All labs reviewed by hi Electrolytes/Renal - Recent Labs Lab Test 03/07/24 [...] evaluation, reviewing documentation/test results, and service order expediter. Discussed with Dr. Janette Cheek PA-C [facility] ( [facility]) * Byron Camarillo RN - 03/07/2024 [...] Megan Salazar - 03/06/2024 4:20 PM CDT [facility] SERVICES Progress Note MS 5 Responded to patient's room regarding overhead Adult Rapid Response CODE. Patient receiving cares. No family present. SHS not needed. SHS remains available. Rev. Ladan HameedDiv. Staff Violin Restorer * Janine Irvin RN - 03/06/2024 3:35 [...] able. Jose Enrique Naylor MD [facility] - Nephrology [phone] * Antonino Cheek MD - 03/06/2024 7:30 AM CDT [facility] Medicine Progress Note - Hospitalist [...] with Mother and Aunt (who is his AERONAUTICAL DRAFTER) Hx of CVA Legally Blind Hypertension Hyperlipidemia [...] 2-4 Days Antonino Cheek MD Hospitalist Service [facility] Securely message with Caremerge (more info) Text page via [facility] Paging/Directory Interval History Patient denies symptoms but [...] Pulse: 89 Resp: 18 SpO2: 98 % Y7Hakyui: BiPAP/CPAP Weight: 185 lbs 13.56 oz GEN: [...] Paged to Dr. Cheek. Paul Rasmussen MD [facility] * Jose Enrique Naylor [...] sodium Jose Enrique Naylor MD [facility] - Nephrology [phone] Interval History : Seen / examined. Appears [...] and thrill Labs: All labs reviewed by hi Electrolytes/Renal - Recent Labs Lab Test 03/05/24 [...] Cheek MD - 03/05/2024 8:33 AM CDT [facility] Medicine Progress Note - Hospitalist Service [...] with Mother and Aunt (who is his AERONAUTICAL DRAFTER) Hx of CVA Legally Blind Hypertension Hyperlipidemia [...] 2-4 Days Antonino Cheek MD Hospitalist Service [facility] Securely message with Caremerge (more info) Text page via [facility] Paging/Directory Interval History Patient is not significantly [...] Recheck INR tomorrow AM. Paul Rasmussen MD [facility] - [facility] [phone] SUBJECTIVE: Denies pain or new symptoms OBJECTIVE: [...] Romero DO - 03/04/2024 10:01 AM CDT [facility] Hospitalist Progress Note Name: Herminio Victor [...] improves with food today. Updated Aunt and AERONAUTICAL DRAFTER Thelma via phone. All questions answered. Problem [...] with Mother and Aunt (who is his AERONAUTICAL DRAFTER) Hx of CVA Legally Blind Hypertension Hyperlipidemia [...] the past 24 hour(s)). Aashish Romero DO [facility] Hospitalist [place] [address] Securely message with Implanet info) Text page via [facility] Paging/Directory 03/04/2024 * Douglas Zarate RT [...] Romero DO - 03/03/2024 12:46 PM CDT [facility] Hospitalist Progress Note Name: Herminio Victor [...] with Mother and Aunt (who is his AERONAUTICAL DRAFTER) Hx of CVA Legally Blind Hypertension Hyperlipidemia [...] the past 24 hour(s)). Aashish Romero DO [facility] Hospitalist Oneyda Veliz [facility]. [place] [phone] Securely message with Caremerge (more info) Text page via [facility] Paging/Directory 03/03/2024 * Bella Argueta RN - 03/03/2024 10:46 AM CDT DATE/TIME OF CALL RECEIVED FROM LAB: 03/03/24 at 10:47 AM LAB TEST: blood glucose LAB VALUE: 56 PROVIDER NOTIFIED?: Yes PROVIDER NAME: Dr. Delfin Romero DATE/TIME LAB VALUE REPORTED TO PROVIDER: 1030 MECHANISM OF PROVIDER NOTIFICATION: [id number] PROVIDER RESPONSE: Administer IV Dextrose and recheck blood glucose in 15 minutes ++++++++++++++++++++++++++++++++++++ DATE/TIME OF CALL RECEIVED FROM LAB: 03/03/24 at 11:15 am LAB TEST: Blood glucose LAB VALUE: 39 PROVIDER NOTIFIED?: Yes PROVIDER NAME: Delfin Romero DATE/TIME LAB VALUE REPORTED TO PROVIDER: 03/03/24 at 11:18 am MECHANISM OF PROVIDER NOTIFICATION: [id number]-[id number]-Ygkz PROVIDER RESPONSE: Additional IV dose of Dextrose [...] Tripathi MD - 03/02/2024 4:41 PM CDT [facility] History and Physical - Hospitalist Service [...] has memory issues and onto his primary AERONAUTICAL DRAFTER. Per aunt, patient always had cognitive deficits [...] 2-4 Days Ron Tripathi MD Hospitalist Service [facility] Securely message with Caremerge (more info) Text page via [facility] Paging/Directory Chief Complaint Melanotic stools. History [...] ESRD (end stage renal disease) (H) dialysis T--[facility] History of [...] Dose Informant Patient Reported? Taking? BISACODYL PO Mapping Editor Yes No Sig: Take 10 mg by [...] PM CDTAssociated Order(s): Single Lumen Midline Placement [facility] Single Lumen Midline Placement Date/Time: 03/07/2024 [...] the procedure a time out was called [place] Protocol: the Joint Commission [place] Protocol was followed Preparation: Patient was prepped [...] size: 4 Fr Brand: Bard Lot number: [id number] Placement method: venipuncture, MST and ultrasound Number [...] Lopez RDN, LD Clinical Dietitian 3rd floor/ICU: [phone] All other floors: [phone] Weekend/holiday: [phone] Office: [phone] * Job Her MD - 03/04/2024 12:38 [...] Resource Strain: Low Risk (06/23/2022) Received from [facility] [employer] [facility] Financial Resource Strain Difficulty of Paying Living Expenses: 3 Difficulty of Paying Living Expenses: Not on file Food Insecurity: No Food Insecurity (06/23/2022) Received from [facility] Food Insecurity Worried About Running Out of Food in the Last Year: 1 Transportation Needs: No Transportation Needs (06/23/2022) Received from [facility] Transportation Needs Lack of Transportation (Medical): 1 Physical Activity: Not on file Stress: Not on file Social Connections: Unknown (06/24/2023) Received from [facility] Social Connections Frequency of Communication with Friends and Family: Not on file Interpersonal Safety: Not on file Housing Stability: Low Risk (06/23/2022) Received from [facility] Housing Stability Unable to Pay [...] hold heparin with HD Job Her MD [facility] - Nephrology Office Pager: [phone] * Paul Rasmussen MD - 03/03/2024 3:58 PM CDTAssociated Order(s): GASTROENTEROLOGY IP CONSULT Images from the original note were not included. GASTROENTEROLOGY CONSULTATION Herminio Victor [address] [place] [id number] 58 year old male Admission Date/Time: 03/02/2024 [...] restart based on course. Paul Rasmussen MD [facility] - Digestive Health [phone] HPI: Herminio Victor is a 58 year [...] evening 12/19/17 Yes Estrella Guillen MD B Fmahxon-H-Gmfht Acid (WESCAPS PO) Take 1 capsule by [...] Communication Assessment Patient's communication style: spoken language (Barbadian or Bilingual) Hearing Difficulty or Deaf: no [...] Support: Care provided by: other (see comments) (AERONAUTICAL DRAFTER- aunt Thelma) Provides care for: no one, [...] Insecurity: No Food Insecurity (06/23/2022) [facility] Insecurity Worried About Running Out of Food in the Last Year: 1 Depression: Not at risk (05/22/2020) Received from [facility] PHQ-2 PHQ-2 Score: 0 Housing Stability: Low Risk (06/23/2022) Received from [facility] Housing Stability Unable to Pay for Housing in the Last Year: 1 Tobacco Use: Low Risk (02/25/2024) Patient History Smoking Tobacco Use: Never Smokeless Tobacco Use: Never Passive Exposure: Not on file Financial Resource Strain: Low Risk (06/23/2022) Received from [facility] Financial Resource Strain Difficulty of Paying Living Expenses: 3 Difficulty of Paying Living Expenses: Not on file Alcohol Use: Not on file Transportation Needs: No Transportation Needs (06/23/2022) Received from [facility] Transportation Needs Lack of Transportation (Medical): 1 Physical Activity: Not on file Interpersonal Safety: Not on file Stress: Not on file Social Connections: Unknown (06/24/2023) Received from [facility] Social Connections Frequency of Communication [...] mother and aunt. His aunt is his AERONAUTICAL DRAFTER and has 40 hours per week.He receives assistance with all ADL's and IADL's except eating. He is legally blind so he needs assistance with ambulating, positioning and transfers too. He ambulates without any assistive devices.He receives Dialysis on MWF at [facility] in [place] per his aunt report.His transportation company [employer] in [place]. Their Phone number is [phone] and they are open M-F , 7 AM to 5 pm. CM will monitor for any discharge needs. Laura Bird RN, BSN, CM Inpatient Care Coordination [facility] [phone] documented in this encounter ED Notes * Albina Sneed RN - 03/02/2024 5:43 PM CDT [facility] ED Nurse Handoff Report ED Chief complaint: Generalized Weakness . ED Diagnosis: Final diagnoses: Anemia, unspecified type Black stool Allergies: Allergies Allergen Reactions Dihydroxyaluminum Aminoacetate Nausea GI bleeding Aspirin GI Disturbance and Rash PN: LW Reaction: unknown Code Status: Full Code Activity level - Baseline/Home: lift. Activity Level - Current: bed Lift room needed: No. Bariatric: No Fingernail Sculpturer Needed: No Isolation: No. Infection: Not Applicable. [...] POS Antibody Screen Negative SPECIMEN EXPIRATION DATE [id number] PREPARE RED BLOOD CELLS (UNIT) Blood Component Type Red Blood Cells Product Code C8823S73 Unit Status Transfused Unit Number [id number] CROSSMATCH Compatible CODING SYSTEM [id number] ISSUE DATE AND TIME [id number] UNIT ABO/RH O+ UNIT TYPE ISBT 5100 PREPARE RED BLOOD CELLS (UNIT) Blood Component Type Red Blood Cells Product Code T4961H40 Unit Status Ready for issue Unit Number [id number] CROSSMATCH Compatible CODING SYSTEM [id number] PREPARE RED BLOOD CELLS (UNIT) TRANSFUSE RED [...] time: 1:38 PM Means of arrival: Comments: [facility] * Raúl Bernard MD - [...] Component Type Red Blood Cells Product Code N6808P26 Unit Status Ready for issue Unit Number [id number] CROSSMATCH Compatible CODING SYSTEM [id number] PREPARE RED BLOOD CELLS (UNIT) Blood Component Type Red Blood Cells Product Code W5845D36 Unit Status Ready for issue Unit Number [id number] CROSSMATCH Compatible CODING SYSTEM [id number] PREPARE RED BLOOD CELLS (UNIT) ABO/RH TYPE AND SCREEN EKG ECG taken at 1400, ECG read at 1403 Sinus rhythm with 1st degree AV block Inferior infarct, age undetermined No significant change when compared to prior, dated 02/24/24. Rate 82 bpm. SC interval 210 ms. QRS duration 88 ms. [...] regarding admission. Medical Decision Making / Diagnosis [facility] Diagnoses: None MIPS None MDM Herminio [...] Disclosure: ILAVINIA, am serving as a scribe management trainer at 2:09 PM on 03/02/2024 to [...] Pharmacy-Anticoagulation Service - Ryann Armando [facility] - 03/12/2024 2:15 PM CDT Images from the original note were not included. 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 INR Goal= 2-3. Warfarin COOK DINNER Regimen: 5mg M-F Anticoagulation Dose History More [...] 6:47 AM CDT Assumed care Assumed care [phone]. A&Ox3, disoriented to time and can be [...] Documentation Taken 03/11/2024 1950 by Harriett Jacobsen, director of ancillary services Review/Management: medications reviewed Problem: Adult Inpatient Plan [...] shift note. Outcome: Progressing Flowsheets (Taken 03/11/2024 8803) Outcome Evaluation: Bp controlled w/ scheduled meds. [...] Flowsheet Documentation Taken 03/11/2024835 by Raul Carter director of ancillary services Review/Management: medications reviewed Goal: Blood Pressure in Desired Range Outcome: Progressing Intervention: Maintain Blood Pressure Management Recent Flowsheet Documentation Taken 03/11/2024835 by Raul Carter director of ancillary services Review/Management: medications reviewed * Plan of Care - Harriett Jacobsen RN - 03/11/2024 5:48 AM CDT Assumed care [phone]. A&Ox4, but can be confused intermittently. On RA and cpap at night. On a renal diet and needs help ordering/tray set-up. Has midline to L arm that is saline locked. Got 1 unit of blood. BG checks: 148, 120, 94. AIRCRAFT MOTOR MECHANIC called overnight, see progress notes from advertising writer, MD, and respiratory. Denies pain. Plan [...] Date/Time: 03/11/2024 0241 Mechanism of Provider Notification: [employer] Purpose of Notification: FYI- Patient got 1U [...] Pharmacy-Anticoagulation Service - Nivia Mahan [facility] - 03/10/2024 12:35 PM CDT Clinical Pharmacy - Warfarin Dosing Consult Pharmacy has been consulted to manage this patient???s warfarin therapy. Indication: DVT/ PE Treatment Therapy Goal: INR 2-3 Warfarin Prior to Admission: Yes Warfarin COOK DINNER Regimen: 5mg M-F Dose Comments: 5mg today [...] shift note. Outcome: Progressing Flowsheets (Taken 03/09/2024 0117) Outcome Evaluation: Hgb 7.6 with recheck Goal: [...] 30 tablet 3 03/01/2024 at PM B Wribbsi-P-Bpnxo Acid (WESCAPS PO) Take 1 capsule by [...] shift note. Outcome: Progressing Flowsheets (Taken 03/07/2024 4263) Outcome Evaluation: No BM this shift. VSS, [...] and complete assessments, please see documentation flowsheets. [id number] Pertinent assessments:Pt disoriented to time & situation [...] of 34 at upon arrival from PACU, [employer] called. PRN D50% 50ml given via IV. [...] and complete assessments, please see documentation flowsheets. [phone] Pertinent assessments:Pt disoriented to time. CPAP in [...] and complete assessments, please see documentation flowsheets. [id number] Pertinent assessments: Pt disoriented to time. CPAP [...] shift note. Outcome: Progressing Flowsheets (Taken 03/04/2024 9646) Outcome Evaluation: BG stable Plan of Care [...] carb diet Treatment Plan: clears tomorrow and RN REVIEW at midnight for colonoscopy and EGD, monitor [...] - 03/03/2024 3:08 PM CDT Cared for [id number] Pt Alert to self (cognitive delay; visually [...] of the update. Information Source(s): Patient's Aunt, Tehlma, [employer] via phone Pertinent Information: None Changes made to [facility] medication list: Added: Senna Deleted: Bisacodyl, Lisinopril (Thelma states she was told to stop giving this last week) Changed: None Allergies reviewed with patient and updates made in EHR: no Medication History Completed By: Quang Gee RPH 03/02/2024 5:32 PM [facility] Med List Medication Sig Last Dose amLODIPine (NORVASC) 5 MG tablet Take 5 mg by mouth daily 03/02/2024 at AM atorvastatin (LIPITOR) 20 MG tablet Take 1 tablet (20 mg) by mouth every evening 03/01/2024 at PM B Sbfolge-T-Aqqnu Acid (WESCAPS PO) Take 1 capsule by [...] Description 07/05/2024 1:15 PM CDT Office Visit [address] [address] Lizandro Barron MD [address] [id number] documented as of this encounter Procedures Procedure [...] Glucose by meter (03/12/2024 12:00 PM CDT) [facility] GLUCOSE BY METER POCT 92 70 - 99 mg/dL 03/12/2024 12:10 PM CDT RH LABORATORY POC Blood, Capillary BLOOD SPECIMEN / Unknown 03/12/2024 12:00 PM CDT 03/12/2024 12:10 PM CDT Ron DEAN - DAVID POCT RH LABORATORY [facility] Lab [address] Lab (1st floor, no room number) [place] [address] * Glucose by meter (03/12/2024 7:51 AM CDT) GLUCOSE BY METER POCT 92 70 - 99 mg/dL 03/12/2024 7:58 AM CDT LABORATORY POC Blood, Capillary BLOOD SPECIMEN / Unknown 03/12/2024 7:51 AM CDT 03/12/2024 7:58 AM CDT Ron Tripathi MD LAB - BEAKER POCT LABORATORY [facility] Lab [address] Lab (1st floor, no room number) [place] [id number] * Glucose (03/12/2024 6:06 AM CDT) Glucose 77 70 - 99 mg/dL 03/12/2024 6:35 AM CDT RH LABORATORY Blood STRUCTURE OF RIGHT UPPER LIMB / Unknown Venipuncture / Unknown 03/12/2024 6:06 AM CDT 03/12/2024 6:10 AM CDT Ron Tripathi MD LAB - BLOOD ORDERABL ES Performing Organization Address [facility]/ZIP Co de Phone Number [facility] Lab [address] Lab (1st floor, no room number) [place] [id number] * (ABNORMAL) Hemoglobin (03/12/2024 6:06 AM CDT) Hemoglobin 8.1(L) 13.3 - 17.7 g/dL 03/12/2024 6:14 AM CDT RH LABORATORY Blood STRUCTURE OF RIGHT UPPER LIMB / Unknown Venipuncture / Unknown 03/12/2024 6:06 AM CDT 03/12/2024 6:10 AM CDT Aashish Romero DO LAB - BLOOD ORDER NADIA [facility] [address] Lab (1st floor, no room number) [place] [address], [facility] * (ABNORMAL) Renal panel (03/12/2024 [...] MD LAB - BLOOD ORDERA BLES LABORATORY [facility] Lab [address] Lab (1st floor, no room number) [place] [phone] [place] [address] * (ABNORMAL) INR (03/12/2024 6:06 AM CDT) INR 1.20(H) 0.85 - 1.15 03/12/2024 6:25 AM CDT RH LABORATORY Blood STRUCTURE OF RIGHT UPPER LIMB / Unknown Venipuncture / Unknown 03/12/2024 6:06 AM CDT 03/12/2024 6:10 AM CDT Eileen Earl MD LAB - BLOOD ORDERA BLES Performing Organization Address [facility]/ZIP Co de Phone Number [facility] Lab [address] Lab (1st floor, no room number) [place] [phone] [place] [address] * (ABNORMAL) Glucose by meter (03/12/2024 1:55 AM CDT) GLUCOSE BY METER POCT 107(H) 70 - 99 mg/dL 03/12/2024 2:01 AM CDT LABORATORY POC Blood, Capillary BLOOD SPECIMEN / Unknown 03/12/2024 1:55 AM CDT 03/12/2024 2:01 AM CDT Ron Tripathi MD LAB - BEAKER POCT LABORATORY POC [facility] Lab [address] Lab (1st floor, no room number) [address] [place] [address] * (ABNORMAL) Glucose by meter (03/11/2024 9:11 PM CDT) GLUCOSE BY METER POCT 132(H) 70 - 99 mg/dL 03/11/2024 9:18 PM CDT RH LABORATORY POC Blood, Capillary BLOOD SPECIMEN / Unknown 03/11/2024 9:11 PM CDT 03/11/2024 9:18 PM CDT Ron Tripathi MD LAB - BEAKER POCT Performing Organization Address City/[facility]/ZIP Co de Phone Number LABORATORY [facility] Lab [address] Lab (1st floor, no room number) [place] [address], [facility] * (ABNORMAL) Hemoglobin (03/11/2024 6:10 PM CDT) Hemoglobin 8.8(L) 13.3 - 17.7 g/dL 03/11/2024 6:22 PM CDT LABORATORY Blood STRUCTURE OF RIGHT UPPER LIMB / Unknown Venipuncture / Unknown 03/11/2024 6:10 PM CDT 03/11/2024 6:20 PM CDT Aashish Romero DO LAB - BLOOD ORDER NADIA Performing Organization Address [facility]/ZIP Co de Phone Number [facility] Lab [address] Lab (1st floor, no room number) [place] [address], [facility] * (ABNORMAL) Glucose by meter (03/11/2024 5:31 PM CDT) GLUCOSE BY METER POCT 144(H) 70 - 99 mg/dL 03/11/2024 5:39 PM CDT LABORATORY POC Blood, Capillary BLOOD SPECIMEN / Unknown 03/11/2024 5:31 PM CDT 03/11/2024 5:39 PM CDT Ron DEAN - BEXIANG POCT Performing Organization Address City/[facility]/ZIP Co de Phone Number LABORATORY [facility] Lab [address] Lab (1st floor, no room number) [place] [address], [facility] * (ABNORMAL) Glucose by meter (03/11/2024 11:47 AM CDT) GLUCOSE BY METER POCT 117(H) 70 - 99 mg/dL 03/11/2024 11:54 AM CDT RH LABORATORY POC Blood, Capillary BLOOD SPECIMEN / Unknown 03/11/2024 11:47 AM CDT 03/11/2024 11:54 AM CDT Narrative Authorizing Provider Result Lauren Tripathi MD LAB - BEAKER POCT RH LABORATORY [facility] Lab [address] Lab (1st floor, no room number) [address] * Glucose by meter (03/11/2024 7:36 AM CDT) GLUCOSE BY METER POCT 81 70 - 99 mg/dL 03/11/2024 7:45 AM CDT LABORATORY POC Blood, Capillary BLOOD SPECIMEN / Unknown 03/11/2024 7:36 AM CDT 03/11/2024 7:45 AM CDT Narrative Authorizing Provider Result Lauren Tripathi MD LAB - BEAKER POCT Performing Organization Address [facility]/ZIP Co de Phone Number LABORATORY [facility] Lab [address] Lab (1st floor, no room number) [address] * (ABNORMAL) Renal panel (03/11/2024 7:03 [...] Earl MD LAB - BLOOD ORDERA BLES [facility] Lab [email or web address] Lab (1st floor, no room number) [place] [address] * INR (03/11/2024 7:03 AM CDT) INR 1.11 0.85 - 1.15 03/11/2024 7:31 AM CDT RH LABORATORY Blood STRUCTURE OF RIGHT UPPER LIMB / Unknown Venipuncture / Unknown 03/11/2024 7:03 AM CDT 03/11/2024 7:10 AM CDT Eileen Earl MD LAB - BLOOD ORDERA BLES [facility] Lab [address] Lab (1st floor, no room number) [place] [address] * (ABNORMAL) CBC with platelets (03/11/2024 [...] LAB - BLOOD ORDER NADIA RH LABORATORY [facility] Lab [address] Lab (1st floor, no room number) [place] [address], [facility] * XR Chest Port 1 View (03/11/2024 3:25 AM CDT) Anatomical Region Laterality Modality Chest Digital Radiogra phy 03/11/2024 3:25 AM CDT Impressions 03/11/2024 3:30 AM CDT IMPRESSION: Normal heart size and pulmonary vascularity. Lungs clear. No pneumothorax. Minimal fluid or thickening along the right fissure. Narrative 03/11/2024 3:30 AM CDT EXAM: XR CHEST PORT 1 VIEW LOCATION: [facility] DATE: 03/11/2024 INDICATION: Shortness of breath COMPARISON: None. Procedure Note David Díaz MD - 03/11/2024 EXAM: XR CHEST PORT 1 VIEW LOCATION: [facility] DATE: 03/11/2024 INDICATION: Shortness of [...] CDT Ron DEAN - DAVID POCT LABORATORY [facility] Lab [address] Lab (1st floor, no room number) [place] [address] * (ABNORMAL) Glucose by meter (03/11/2024 1:57 AM CDT) GLUCOSE BY METER POCT 120(H) 70 - 99 mg/dL 03/11/2024 2:04 AM CDT LABORATORY POC Blood, Capillary BLOOD SPECIMEN / Unknown 03/11/2024 1:57 AM CDT 03/11/2024 2:04 AM CDT Ron DEAN - BEXIANG POCT LABORATORY [facility] Lab [address] Lab (1st floor, no room number) [place] [address] * CONDITIONAL Transfuse red blood [...] MD LAB - BEAKER POCT LABORATORY POC [facility] Lab [address] [facility] Lab (1st floor, no room number) [place] [phone] * Adult Type and Screen (03/10/2024 6:53 PM CDT) ABO/RH(D) O POS 03/10/2024 6:44 PM CDT RH BLOOD BANK Antibody Screen Negative Negative 03/10/2024 6:44 PM CDT RH BLOOD BANK SPECIMEN EXPIRATION DATE [id number] 03/10/2024 6:44 PM CDT RH BLOOD BANK Blood STRUCTURE OF RIGHT UPPER LIMB / Unknown Venipuncture / Unknown 03/10/2024 6:53 PM CDT 03/10/2024 6:57 PM CDT Antonino Cheek MD LAB - BLOOD BANK SHANNON T ORDER BLOOD BANK [address] [place] [address] * CONDITIONAL Prepare red blood cells (unit) (03/10/2024 6:37 PM CDT) Blood Component Type Red Blood Cells RH BLOOD BANK Product Code [id number] RH BLOO D BANK Unit Status Transfused RH BLOO D BANK Unit Number [id number] RH B LOOD BANK CROSSMATCH Compatible RH BLOOD BANK CODING SYSTEM [id number] RH BLO OD BANK ISSUE DATE AND TIME [id number] RH BLOOD BANK UNIT ABO/RH O+ RH BLOOD BANK UNIT TYPE ISBT 5100 RH BL OOD BANK 03/10/2024 6:37 PM CDT Eileen Earl MD BLOOD BANK PRODUCT ORDERABLES RH BLOOD BANK [address] [place] [address], [facility] * (ABNORMAL) Hemoglobin (03/10/2024 6:00 PM CDT) Hemoglobin 7.0(L) 13.3 - 17.7 g/dL 03/10/2024 6:09 PM CDT RH LABORATORY Blood STRUCTURE OF RIGHT UPPER LIMB / Unknown Venipuncture / Unknown 03/10/2024 6:00 PM CDT 03/10/2024 6:07 PM CDT Aashish Romero DO LAB - BLOOD ORDER NADIA Performing Organization Address City/[facility]/ZIP Co de Phone Number [facility] Lab [address] Lab (1st floor, no room number) [place] [address], [facility] * (ABNORMAL) Glucose by meter (03/10/2024 4:49 PM CDT) GLUCOSE BY METER POCT 208(H) 70 - 99 mg/dL 03/10/2024 5:05 PM CDT RH LABORATORY POC Blood, Capillary BLOOD SPECIMEN / Unknown 03/10/2024 4:49 PM CDT 03/10/2024 5:05 PM CDT Ron Tripathi MD LAB - BEAKER POCT LABORATORY [facility] Lab [address] Lab (1st floor, no room number) [address] * Glucose by meter (03/10/2024 2:35 PM CDT) GLUCOSE BY METER POCT 98 70 - 99 mg/dL 03/10/2024 2:43 PM CDT RH LABORATORY POC Blood, Capillary BLOOD SPECIMEN / Unknown 03/10/2024 2:35 PM CDT 03/10/2024 2:43 PM CDT Narrative Authorizing Provider Result Lauren Tripathi MD LAB - BEAKER POCT LABORATORY [facility] Lab [address] Lab (1st floor, no room number) [address] * Glucose by meter (03/10/2024 1:28 PM CDT) GLUCOSE BY METER POCT 94 70 - 99 mg/dL 03/10/2024 1:37 PM CDT RH LABORATORY POC Blood, Capillary BLOOD SPECIMEN / Unknown 03/10/2024 1:28 PM CDT 03/10/2024 1:37 PM CDT Narrative Authorizing Provider Result Lauren Tripathi MD LAB - BEAKER POCT LABORATORY [facility] Lab [address] Lab (1st floor, no room number) [address] * Glucose by meter (03/10/2024 12:35 PM CDT) GLUCOSE BY METER POCT 92 70 - 99 mg/dL 03/10/2024 12:50 PM CDT RH LABORATORY POC Blood, Capillary BLOOD SPECIMEN / Unknown 03/10/2024 12:35 PM CDT 03/10/2024 12:50 PM CDT Narrative Authorizing Provider Result Lauren Tripathi MD LAB - BEAKER POCT LABORATORY [facility] Lab [address] Lab (1st floor, no room number) [address] * (ABNORMAL) Glucose by meter (03/10/2024 11:28 AM CDT) GLUCOSE BY METER POCT 102(H) 70 - 99 mg/dL 03/10/2024 11:35 AM CDT RH LABORATORY POC Blood, Capillary BLOOD SPECIMEN / Unknown 03/10/2024 11:28 AM CDT 03/10/2024 11:35 AM CDT Ron Tripathi MD LAB - BEAKER POCT Performing Organization Address City/[facility]/ZIP Co de Phone Number LABORATORY [facility] Lab [address] Lab (1st floor, no room number) [address] * (ABNORMAL) Glucose by meter (03/10/2024 10:35 AM CDT) GLUCOSE BY METER POCT 133(H) 70 - 99 mg/dL 03/10/2024 10:42 AM CDT LABORATORY POC Blood, Capillary BLOOD SPECIMEN / Unknown 03/10/2024 10:35 AM CDT 03/10/2024 10:42 AM CDT Ron DEAN - DAVID POCT Performing Organization Address [facility]/ZIP Co de Phone Number LABORATORY [facility] Lab [address] Lab (1st floor, no room number) [address] * (ABNORMAL) Glucose by meter (03/10/2024 8:32 AM CDT) GLUCOSE BY METER POCT 105(H) 70 - 99 mg/dL 03/10/2024 8:45 AM CDT RH LABORATORY POC Blood, Capillary BLOOD SPECIMEN / Unknown 03/10/2024 8:32 AM CDT 03/10/2024 8:45 AM CDT Ron DEAN - DAVID POCT RH LABORATORY POC [facility] Lab [address] Lab (1st floor, no room number) [place] [address] * (ABNORMAL) Hemoglobin (03/10/2024 7:46 AM CDT) Hemoglobin 7.0(L) 13.3 - 17.7 g/dL 03/10/2024 7:55 AM CDT LABORATORY Blood STRUCTURE OF RIGHT UPPER LIMB / Unknown Venipuncture / Unknown 03/10/2024 7:46 AM CDT 03/10/2024 7:50 AM CDT Ron Tripathi MD LAB - BLOOD ORDERABL ES Performing Organization Address [facility]/ZIP Co de Phone Number RH LABORATORY [facility] Lab [address] Lab (1st floor, no room number) [place] [address] * (ABNORMAL) Renal panel (03/10/2024 [...] Earl MD LAB - BLOOD ORDERA BLES [facility] Lab [email or web address] Lab (1st floor, no room number) [place] [id number] [place] [address] * (ABNORMAL) INR (03/10/2024 7:46 AM CDT) INR 1.18(H) 0.85 - 1.15 03/10/2024 8:03 AM CDT LABORATORY Blood STRUCTURE OF RIGHT UPPER LIMB / Unknown Venipuncture / Unknown 03/10/2024 7:46 AM CDT 03/10/2024 7:50 AM CDT Eileen Earl MD LAB - BLOOD ORDERA BLES [facility] Lab [email or web address] Lab (1st floor, no room number) [place] [address] * (ABNORMAL) Glucose by meter (03/10/2024 3:38 AM CDT) GLUCOSE BY METER POCT 112(H) 70 - 99 mg/dL 03/10/2024 3:44 AM CDT RH LABORATORY POC Blood, Capillary BLOOD SPECIMEN / Unknown 03/10/2024 3:38 AM CDT 03/10/2024 3:44 AM CDT Narrative Authorizing Provider Result Lauren DEAN - BEAKER POCT Performing Organization Address [facility]/ZIP Co de Phone Number LABORATORY [facility] Lab [address] Lab (1st floor, no room number) [place] [address], [place] * Glucose by meter (03/10/2024 12:05 AM CDT) GLUCOSE BY METER POCT 97 70 - 99 mg/dL 03/10/2024 12:11 AM CDT LABORATORY POC Blood, Capillary BLOOD SPECIMEN / Unknown 03/10/2024 12:05 AM CDT 03/10/2024 12:11 AM CDT Narrative Authorizing Provider Result Lauren DEAN - BEAKER POCT Performing Organization Address [facility]/ZIP Co de Phone Number LABORATORY [facility] Lab [address] Lab (1st floor, no room number) [place] [phone], [facility] * (ABNORMAL) Hemoglobin (03/09/2024 11:50 PM CDT) Hemoglobin 7.5(L) 13.3 - 17.7 g/dL 03/09/2024 11:57 PM CDT LABORATORY Blood STRUCTURE OF RIGHT HAND / Unknown Venipuncture / Unknown 03/09/2024 11:50 PM CDT 03/09/2024 11:53 PM CDT Narrative Authorizing Provider Result Lauren Tripathi MD LAB - BLOOD ORDERABL ES Performing Organization Address [facility]/ZIP Co de Phone Number [facility] Lab [address] Lab (1st floor, no room number) [place] [phone], [facility] * (ABNORMAL) Glucose by meter (03/09/2024 8:25 PM CDT) GLUCOSE BY METER POCT 159(H) 70 - 99 mg/dL 03/09/2024 8:32 PM CDT RH LABORATORY POC Blood, Capillary BLOOD SPECIMEN / Unknown 03/09/2024 8:25 PM CDT 03/09/2024 8:32 PM CDT Ron Tripathi MD LAB - BEAKER POCT LABORATORY [facility] Care Lab [address] Lab (1st floor, no room number) [place] [address], [facility] * (ABNORMAL) Hemoglobin (03/09/2024 7:13 PM CDT) Hemoglobin 7.6(L) 13.3 - 17.7 g/dL 03/09/2024 7:27 PM CDT RH LABORATORY Blood VENOUS LINE / Unknown Venipuncture / Unknown 03/09/2024 7:13 PM CDT 03/09/2024 7:25 PM CDT Narrative Authorizing Provider Result Lauren Tripathi MD LAB - BLOOD ORDERABL ES Performing Organization Address [facility]/ZIP Co de Phone Number [facility] Lab [address] Lab (1st floor, no room number) [place] [address], [facility] * (ABNORMAL) Glucose by meter (03/09/2024 4:12 PM CDT) GLUCOSE BY METER POCT 147(H) 70 - 99 mg/dL 03/09/2024 4:19 PM CDT LABORATORY POC Blood, Capillary BLOOD SPECIMEN / Unknown 03/09/2024 4:12 PM CDT 03/09/2024 4:19 PM CDT Narrative Authorizing Provider Result Lauren DEAN - BEAKER POCT Performing Organization Address City/[facility]/ZIP Co de Phone Number LABORATORY [facility] Lab [address] Lab (1st floor, no room number) [place] [address], [facility] * (ABNORMAL) Hemoglobin (03/09/2024 2:16 PM CDT) Hemoglobin 7.6(L) 13.3 - 17.7 g/dL 03/09/2024 2:43 PM CDT LABORATORY Blood VASCULAR LINE / Unknown Venipuncture / Unknown 03/09/2024 2:16 PM CDT 03/09/2024 2:29 PM CDT Ron Tripathi MD LAB - BLOOD ORDERABL ES LABORATORY [facility] Lab [address] Lab (1st floor, no room number) [place] [phone] [place] [address] * (ABNORMAL) Glucose by meter (03/09/2024 1:35 PM CDT) GLUCOSE BY METER POCT 150(H) 70 - 99 mg/dL 03/09/2024 1:42 PM CDT LABORATORY POC Blood, Capillary BLOOD SPECIMEN / Unknown 03/09/2024 1:35 PM CDT 03/09/2024 1:42 PM CDT Ron Tripathi MD LAB - BEAKER POCT LABORATORY POC [facility] Lab [address] Lab (1st floor, no room number) [place] [phone] * Morphology Tracking (03/09/2024 9:12 AM CDT) Blood VENOUS LINE / Unknown Venipuncture / Unknown 03/09/2024 9:12 AM CDT 03/09/2024 9:26 AM CDT Antonino Cheek MD LAB - BLOOD ORDERABL ES LABORATORY [facility] Lab [address] Lab (1st floor, no room number) [place] [address] * (ABNORMAL) Reticulocyte count (03/09/2024 9:12 AM CDT) % Reticulocyte 2.8(H) 0.5 - 2.0 % 03/09/2024 9:33 AM CDT RH LABORATORY Absolute Reticulocyte 0.072 0.025 - 0.095 10e6/uL 03/09/2024 9:33 AM CDT RH LABORATORY Blood VENOUS LINE / Unknown Venipuncture / Unknown 03/09/2024 9:12 AM CDT 03/09/2024 9:26 AM CDT Antonino Cheek MD LAB - BLOOD ORDERABL ES RH LABORATORY [facility] Lab [address] Lab (1st floor, no room number) [place] [address] * (ABNORMAL) CBC with platelets [...] MD LAB - BLOOD ORDERABL ES LABORATORY [facility] Lab [address] Lab (1st floor, no room number) [place] [address], [facility] * Bld morphology pathology review (03/09/2024 9:12 AM CDT) Final Diagnosis Peripheral blood for morphology: -Moderate normochromic, normocytic anemia without evidence of red cell regeneration; no morphologic or laboratory features of hemolysis detected -Slight mature neutrophilia without morphologic abnormalities 03/13/2024 10:17 AM [facility] LAB Comment Review of recent [...] of this testing [facility] 03/13/2024 10:17 AM CDT [facility] PATHOLOGY LAB Blood VENOUS LINE [...] Antonino Cheek MD LAB - BEAKER AP [facility] PATHOLOGY LAB [facility] Pathology Lab [address]st Floor, [address] [place] [address] * Haptoglobin (03/09/2024 9:12 AM CDT) Haptoglobin 127 30 - 200 mg/dL 03/10/2024 1:23 AM CDT [facility] LABORATORY Blood VENOUS LINE / Unknown Venipuncture / Unknown 03/09/2024 9:12 AM CDT 03/09/2024 9:26 AM CDT Antonino Cheek MD LAB - BLOOD ORDERABL ES [facility] LABORATORY [facility] Lab [address], [address] [place] [address] * Bilirubin Direct and Total (03/09/2024 9:12 AM CDT) Bilirubin Direct 0.22 0.00 - 0.30 mg/dL 03/09/2024 9:59 AM CDT RH LABORATORY Bilirubin Total 0.5 <=1.2 mg/dL 03/09/2024 9:59 AM CDT RH LABORATORY Blood VENOUS LINE / Unknown Venipuncture / Unknown 03/09/2024 9:12 AM CDT 03/09/2024 9:26 AM CDT Antonino Cheek MD LAB - BLOOD ORDERABL ES Performing Organization Address [facility]/ZIP Co de Phone Number [facility] Lab [address] Lab (1st floor, no room number) [address] [place] [address] * Lactate Dehydrogenase (03/09/2024 9:12 AM CDT) Lactate Dehydrogenase 226 0 - 250 U/L 03/09/2024 9:59 AM CDT LABORATORY Blood VENOUS LINE / Unknown Venipuncture / Unknown 03/09/2024 9:12 AM CDT 03/09/2024 9:26 AM CDT Antonino Cheek MD LAB - BLOOD ORDERABL ES Performing Organization Address [facility]/ZIP Co de Phone Number [facility] Lab [address] Lab (1st floor, no room number) [address] * INR (03/09/2024 9:12 AM CDT) INR 1.13 0.85 - 1.15 03/09/2024 9:41 AM CDT LABORATORY Blood VENOUS LINE / Unknown Venipuncture / Unknown 03/09/2024 9:12 AM CDT 03/09/2024 9:26 AM CDT Eileen Earl MD LAB - BLOOD ORDERA BLES [facility] Lab [address] Lab (1st floor, no room number) [address] [place] [address] * Glucose by meter (03/09/2024 7:55 AM CDT) GLUCOSE BY METER POCT 91 70 - 99 mg/dL 03/09/2024 8:04 AM CDT RH LABORATORY POC Comment:Dr/RN Notified Blood, Capillary BLOOD SPECIMEN / Unknown 03/09/2024 7:55 AM CDT 03/09/2024 8:04 AM CDT [facility] Lab [address] Lab (1st floor, no room number) [place] [address], [facility] * (ABNORMAL) Renal panel (03/09/2024 5:49 [...] MD LAB - BLOOD ORDERA BLES LABORATORY [facility] Lab [address] Lab (1st floor, no room number) [place] [address] * (ABNORMAL) Hemoglobin (03/09/2024 5:49 AM CDT) Hemoglobin 7.5(L) 13.3 - 17.7 g/dL 03/09/2024 6:00 AM CDT RH LABORATORY Blood VENOUS LINE / Unknown Venipuncture / Unknown 03/09/2024 5:49 AM CDT 03/09/2024 5:57 AM CDT Ron Tripathi MD LAB - BLOOD ORDERABL ES Performing Organization Address [facility]/ZIP Co de Phone Number LABORATORY [facility] [address] Lab (1st floor, no room number) [place] [address], [facility] * (ABNORMAL) Glucose by meter (03/09/2024 4:31 AM CDT) GLUCOSE BY METER POCT 112(H) 70 - 99 mg/dL 03/09/2024 4:37 AM CDT LABORATORY POC Blood, Capillary BLOOD SPECIMEN / Unknown 03/09/2024 4:31 AM CDT 03/09/2024 4:37 AM CDT Ron Tripathi MD LAB - BEAKER POCT Performing Organization Address City/[facility]/ZIP Co de Phone Number LABORATORY POC [facility] Lab [address] Lab (1st floor, no room number) [place] [address], [facility] * (ABNORMAL) Glucose by meter (03/09/2024 12:26 AM CDT) GLUCOSE BY METER POCT 124(H) 70 - 99 mg/dL 03/09/2024 12:32 AM CDT LABORATORY POC Blood, Capillary BLOOD SPECIMEN / Unknown 03/09/2024 12:26 AM CDT 03/09/2024 12:32 AM CDT Ron Tripathi MD LAB - BEAKER POCT LABORATORY [facility] Lab [address] Lab (1st floor, no room number) [place] [id number] [place] [address] * (ABNORMAL) Hemoglobin (03/08/2024 10:35 PM CDT) Hemoglobin 7.5(L) 13.3 - 17.7 g/dL 03/08/2024 10:48 PM CDT LABORATORY Blood BLOOD SPECIMEN / Unknown Venipuncture / Unknown 03/08/2024 10:35 PM CDT 03/08/2024 10:45 PM CDT Antonino Cheek MD LAB - BLOOD ORDERABL ES [facility] Lab [address] Lab (1st floor, no room number) [place] [id number], [facility] * (ABNORMAL) Glucose by meter (03/08/2024 10:09 PM CDT) GLUCOSE BY METER POCT 116(H) 70 - 99 mg/dL 03/08/2024 10:15 PM CDT LABORATORY POC Blood, Capillary BLOOD SPECIMEN / Unknown 03/08/2024 10:09 PM CDT 03/08/2024 10:15 PM CDT Ron DEAN - BEAKER POCT LABORATORY POC [facility] Acute Care Lab [address] Lab (1st floor, no room number) [place] [address], [place] * (ABNORMAL) Glucose by meter (03/08/2024 8:11 PM CDT) GLUCOSE BY METER POCT 114(H) 70 - 99 mg/dL 03/08/2024 8:18 PM CDT RH LABORATORY POC Blood, Capillary BLOOD SPECIMEN / Unknown 03/08/2024 8:11 PM CDT 03/08/2024 8:18 PM CDT Ron DEAN - BEXIANG POCT Performing Organization Address [facility]/ZIP Co de Phone Number LABORATORY [facility] Lab [address] Lab (1st floor, no room number) [place] [id number] [place] [address] * Glucose by meter (03/08/2024 5:59 PM CDT) GLUCOSE BY METER POCT 84 70 - 99 mg/dL 03/08/2024 6:05 PM CDT LABORATORY POC Blood, Capillary BLOOD SPECIMEN / Unknown 03/08/2024 5:59 PM CDT 03/08/2024 6:05 PM CDT Narrative Authorizing Provider Result Lauren DEAN - DAVID POCT Performing Organization Address [facility]/ZIP Co de Phone Number LABORATORY [facility] Care Lab [address] Lab (1st floor, no room number) [place] [id number] [place] [address] * Glucose by meter (03/08/2024 5:28 PM CDT) GLUCOSE BY METER POCT 99 70 - 99 mg/dL 03/08/2024 5:35 PM CDT LABORATORY POC Blood, Capillary BLOOD SPECIMEN / Unknown 03/08/2024 5:28 PM CDT 03/08/2024 5:35 PM CDT Narrative Authorizing Provider Result Lauren DEAN - BEXIANG POCT LABORATORY [facility] Lab [address] Lab (1st floor, no room number) [address] [place] [address] * Glucose by meter (03/08/2024 5:02 PM CDT) GLUCOSE BY METER POCT 79 70 - 99 mg/dL 03/08/2024 5:08 PM CDT RH LABORATORY POC Blood, Capillary BLOOD SPECIMEN / Unknown 03/08/2024 5:02 PM CDT 03/08/2024 5:08 PM CDT Ron DEAN - DAVID POCT Performing Organization Address [facility]/ZIP Co de Phone Number LABORATORY [facility] Lab [address] Lab (1st floor, no room number) [place] [id number] [place] [address] * (ABNORMAL) Glucose by meter (03/08/2024 4:36 PM CDT) GLUCOSE BY METER POCT 63(L) 70 - 99 mg/dL 03/08/2024 4:43 PM CDT LABORATORY POC Blood, Capillary BLOOD SPECIMEN / Unknown 03/08/2024 4:36 PM CDT 03/08/2024 4:43 PM CDT Ron DEAN - DAVID POCT Performing Organization Address [facility]/ZIP Co de Phone Number LABORATORY [facility] Lab [address] Lab (1st floor, no room number) [place] [phone] [place] [address] * (ABNORMAL) Glucose by meter (03/08/2024 3:59 PM CDT) GLUCOSE BY METER POCT 68(L) 70 - 99 mg/dL 03/08/2024 4:06 PM CDT LABORATORY POC Blood, Capillary BLOOD SPECIMEN / Unknown 03/08/2024 3:59 PM CDT 03/08/2024 4:06 PM CDT Ron Tripathi MD LAB - BEAKER POCT LABORATORY POC [facility] Lab [address] Lab (1st floor, no room number) [address] * (ABNORMAL) Hemoglobin (03/08/2024 2:42 PM CDT) Hemoglobin 8.1(L) 13.3 - 17.7 g/dL 03/08/2024 3:25 PM CDT LABORATORY Blood VASCULAR LINE / Unknown Venipuncture / Unknown 03/08/2024 2:42 PM CDT 03/08/2024 2:58 PM CDT Antonino Cheek MD LAB - BLOOD ORDERABL ES Performing Organization Address City/[facility]/ZIP Co de Phone Number LABORATORY [facility] Lab [address] Lab (1st floor, no room number) [address] [place] [address] * (ABNORMAL) Glucose by meter (03/08/2024 2:16 PM CDT) GLUCOSE BY METER POCT 104(H) 70 - 99 mg/dL 03/08/2024 2:23 PM CDT RH LABORATORY POC Comment:Dr/RN Notified Blood, Capillary BLOOD SPECIMEN / Unknown 03/08/2024 2:16 PM CDT 03/08/2024 2:23 PM CDT Ron Tripathi MD LAB - BEAKER POCT LABORATORY POC [facility] Lab [address] Lab (1st floor, no room number) [address] * (ABNORMAL) Glucose by meter (03/08/2024 1:56 PM CDT) GLUCOSE BY METER POCT 52(L) 70 - 99 mg/dL 03/08/2024 2:03 PM CDT LABORATORY POC Blood, Capillary BLOOD SPECIMEN / Unknown 03/08/2024 1:56 PM CDT 03/08/2024 2:03 PM CDT Ron DEAN - BEAKER POCT Performing Organization Address [facility] Co de Phone Number LABORATORY [facility] Care Lab [address] Lab (1st floor, no room number) [place] [address] * (ABNORMAL) Glucose by meter (03/08/2024 1:36 PM CDT) GLUCOSE BY METER POCT 69(L) 70 - 99 mg/dL 03/08/2024 1:49 PM CDT LABORATORY POC Blood, venous BLOOD SPECIMEN / Unknown 03/08/2024 1:36 PM CDT 03/08/2024 1:49 PM CDT Ron DEAN - DAVID POCT Performing Organization Address [facility] de Phone Number LABORATORY [facility] Lab [address] Lab (1st floor, no room number) [place] [address] * Surgical Pathology Exam (03/08/2024 1:26 PM CDT) Case Report Surgical Pathology Report ? Case: [id number] ? Authorizing Provider: ??Eileen Earl MD ?Collected: ? 03/08/2024 01:26 PM ? Ordering Location: ? [facility] ?Received: ?03/08/2024 02:01 PM ? End[facility] ? Pathologist: ? Jae Cardona MD ? Specimen: ?Rectum, Rectum polyp ? 03/09/2024 10:13 AM [facility] Final Diagnosis Rectum, polypectomy: --Hyperplastic polyp. 03/09/2024 10:13 AM [facility] Clinical Information Procedure: Colonoscopy with polypectomy by cold biopsy forceps Pre-op Diagnosis: Anemia, unspecified type [D64.9] Post-op Diagnosis: D64.9 - Anemia, unspecified type [ICD-10-CM] 03/09/2024 10:13 AM [facility] Gross Description A(1). Rectum, Rectum polyp: The specimen is received in formalin, labeled with the patient's name, medical record number and other identifying information and designated ? rectum polyp? . It consists of 2 english soft tissue fragments ranging from 0.1-0.4 cm. Entirely submitted in one cassette. MARY Gates(ASCP)CM 03/08/2024 2:57 PM 03/09/2024 10:13 AM [facility] Microscopic Description Microscopic examination was performed. 03/09/2024 10:13 AM [facility] Performing Labs The technical component of this testing was completed at [facility]. Stain controls for all stains resulted within this report have been reviewed and show appropriate reactivity. 03/09/2024 10:13 AM CDT LABORATORY Case Images 03/09/2024 10:13 AM CDT LABORATORY Polyp RECTUM PART / Unknown 03/08/2024 1:26 PM CDT 03/08/2024 2:01 PM CDT Eileen DEAN - DAVID [place] LABORATORY [facility] Lab [address] [facility] Lab (1st floor, no room number) [place] [address] * COLONOSCOPY (03/08/2024 1:04 PM CDT) [facility] Signature COLONOSCOPY [facility] Patient Name: Herminio Victor ? Procedure [...] continuously. The ?Olympus Adult Colonoscope, Model # CF-SA989G, ?Censitrac # [id number] was introduced through the ?anus and advanced [...] Note Initiated On: 03/08/2024 1:04 PM MRN: ?[id number] Procedure Date: ? 03/08/2024 1:04:50 PM Scope [...] Tripathi MD LAB - BEAKER POCT LABORATORY [facility] Lab [address] Lab (1st floor, no room number) [place] [address] * (ABNORMAL) Glucose by meter (03/08/2024 11:11 AM CDT) GLUCOSE BY METER POCT 65(L) 70 - 99 mg/dL 03/08/2024 11:17 AM CDT LABORATORY POC Blood, Capillary BLOOD SPECIMEN / Unknown 03/08/2024 11:11 AM CDT 03/08/2024 11:17 AM CDT Ron Tripathi MD LAB - BEAKER POCT LABORATORY [facility] Lab [address] Lab (1st floor, no room number) [place] [address] * CONDITIONAL Transfuse red blood [...] LAB - BEAKER POCT Performing Organization Address City/[facility]/ZIP Co de Phone Number RH LABORATORY POC [facility] Lab [address] [facility] Lab (1st floor, no room number) [place] [address] * CONDITIONAL Prepare red blood cells (unit) (03/08/2024 7:50 AM CDT) Blood Component Type Red Blood Cells RH BLOOD BANK Product Code [id number] RH BLOO D BANK Unit Status Transfused RH BLOO D BANK Unit Number [id number] RH B LOOD BANK CROSSMATCH Compatible RH BLOOD BANK CODING SYSTEM [id number] RH BLO OD BANK ISSUE DATE AND TIME [id number] RH BLOOD BANK UNIT ABO/RH O+ RH BLOOD BANK UNIT TYPE ISBT 5100 RH BL OOD BANK 03/08/2024 7:50 AM CDT Eileen Earl MD BLOOD BANK PRODUCT ORDERABLES Performing Organization Address [facility] Co de Phone Number RH BLOOD BANK [address] [place] [address] * (ABNORMAL) Renal panel (03/08/2024 6:25 [...] Earl MD LAB - BLOOD ORDERA BLES [facility] Care Lab [email or web address] Lab (1st floor, no room number) [place] [id number] [place] [address] * (ABNORMAL) INR (03/08/2024 6:25 AM CDT) INR 1.18(H) 0.85 - 1.15 03/08/2024 7:03 AM CDT LABORATORY Blood STRUCTURE OF RIGHT UPPER LIMB / Unknown Venipuncture / Unknown 03/08/2024 6:25 AM CDT 03/08/2024 6:39 AM CDT Eileen Earl MD LAB - BLOOD ORDERA BLES [facility] Acute Care Lab [address] Lab (1st floor, no room number) [place] [address] * (ABNORMAL) Hemoglobin (03/08/2024 6:25 AM CDT) Hemoglobin 6.7(LL) 13.3 - 17.7 g/dL 03/08/2024 7:01 AM CDT RH LABORATORY Blood STRUCTURE OF RIGHT UPPER LIMB / Unknown Venipuncture / Unknown 03/08/2024 6:25 AM CDT 03/08/2024 6:39 AM CDT Antonino Cheek MD LAB - BLOOD ORDERABL ES [facility] Lab [address] Lab (1st floor, no room number) [place] [address], [facility] * (ABNORMAL) Glucose by meter (03/08/2024 6:00 AM CDT) GLUCOSE BY METER POCT 111(H) 70 - 99 mg/dL 03/08/2024 6:07 AM CDT LABORATORY POC Blood, Capillary BLOOD SPECIMEN / Unknown 03/08/2024 6:00 AM CDT 03/08/2024 6:07 AM CDT Ron DEAN - BEAKER POCT Performing Organization Address [facility]/ZIP Co de Phone Number LABORATORY [facility] Care Lab [address] Lab (1st floor, no room number) [place] [address], [facility] * Glucose by meter (03/08/2024 3:08 AM CDT) GLUCOSE BY METER POCT 90 70 - 99 mg/dL 03/08/2024 3:15 AM CDT LABORATORY POC Blood, Capillary BLOOD SPECIMEN / Unknown 03/08/2024 3:08 AM CDT 03/08/2024 3:15 AM CDT Ron Tripathi MD LAB - BEAKER POCT LABORATORY [facility] Acute Care Lab [address] Lab (1st floor, no room number) [address] * Glucose by meter (03/08/2024 2:01 AM CDT) GLUCOSE BY METER POCT 76 70 - 99 mg/dL 03/08/2024 2:07 AM CDT RH LABORATORY POC Blood, Capillary BLOOD SPECIMEN / Unknown 03/08/2024 2:01 AM CDT 03/08/2024 2:07 AM CDT Ron Tripathi MD LAB - BEAKER POCT RH LABORATORY POC [facility] Care Lab [address] Lab (1st floor, no room number) [address] * (ABNORMAL) Hemoglobin (03/08/2024 1:12 AM CDT) Hemoglobin 7.6(L) 13.3 - 17.7 g/dL 03/08/2024 1:33 AM CDT RH LABORATORY Blood STRUCTURE OF LEFT HAND / Unknown Venipuncture / Unknown 03/08/2024 1:12 AM CDT 03/08/2024 1:30 AM CDT Antonino Cheek MD LAB - BLOOD ORDERABL ES Performing Organization Address City/[facility]/ZIP Co de Phone Number LABORATORY [facility] Care Lab [address] Lab (1st floor, no room number) [place] [phone] * US Upper Extremity Venous Duplex [...] US UPPER EXTREMITY VENOUS DUPLEX RIGHT LOCATION: [facility] DATE: 03/07/2024 INDICATION: Swelling, looking [...] US UPPER EXTREMITY VENOUS DUPLEX RIGHT LOCATION: [facility] DATE: 03/07/2024 INDICATION: Swelling, looking [...] theproximal to distal forearm. Antonino Cheek MD [facility] ORDERABLES * Glucose by meter (03/07/2024 9:31 PM CDT) [facility] GLUCOSE BY METER POCT 90 70 - 99 mg/dL 03/07/2024 9:38 PM CDT LABORATORY POC Blood, Capillary BLOOD SPECIMEN / Unknown 03/07/2024 9:31 PM CDT 03/07/2024 9:38 PM CDT Ron Tripathi MD LAB - BEAKER POCT RH LABORATORY [facility] Care Lab [address] Lab (1st floor, no room number) [place] [address], [facility] * (ABNORMAL) Hemoglobin (03/07/2024 6:58 PM CDT) Hemoglobin 8.6(L) 13.3 - 17.7 g/dL 03/07/2024 8:44 PM CDT RH LABORATORY Blood STRUCTURE OF RIGHT HAND / Unknown Venipuncture / Unknown 03/07/2024 6:58 PM CDT 03/07/2024 7:06 PM CDT Antonino Cheek MD LAB - BLOOD ORDERABL ES [facility] Lab [address] Lab (1st floor, no room number) [place] [address] * Glucose by meter (03/07/2024 6:56 PM CDT) GLUCOSE BY METER POCT 86 70 - 99 mg/dL 03/07/2024 7:03 PM CDT LABORATORY POC Blood, Capillary BLOOD SPECIMEN / Unknown 03/07/2024 6:56 PM CDT 03/07/2024 7:03 PM CDT Ron DEAN - BEAKER POCT Performing Organization Address City/[facility]/ZIP Co de Phone Number LABORATORY [facility] Care Lab [address] Lab (1st floor, no room number) [place] [address], [facility] * Glucose by meter (03/07/2024 5:03 PM CDT) GLUCOSE BY METER POCT 79 70 - 99 mg/dL 03/07/2024 5:10 PM CDT LABORATORY POC Blood, Capillary BLOOD SPECIMEN / Unknown 03/07/2024 5:03 PM CDT 03/07/2024 5:10 PM CDT Ron DEAN - BEAKER POCT LABORATORY [facility] Lab [address] Lab (1st floor, no room number) [place] [address], [facility] * Single Lumen Midline Placement (03/07/2024 1:34 PM CDT) Narrative Patricio Bocanegra RN - 03/07/2024 1:34 PM CDT Patricio Bocanegra RN ? 03/07/2024 ??1:41 PM [facility] Single Lumen Midline Placement Date/Time: 03/07/2024 [...] procedure a time out was called ?? [place] Protocol: the Joint Commission [place] Protocol was followed ?? Preparation: Patient was [...] size: 4 Fr Brand: Bard Lot number: [id number] Placement method: venipuncture, MST and ultrasound Number [...] CDT Ron DEAN - BEAKER POCT LABORATORY [facility] Lab [address] Lab (1st floor, no room number) [address] * Glucose by meter (03/07/2024 8:49 AM CDT) GLUCOSE BY METER POCT 77 70 - 99 mg/dL 03/07/2024 8:56 AM CDT LABORATORY POC Blood, Capillary BLOOD SPECIMEN / Unknown 03/07/2024 8:49 AM CDT 03/07/2024 8:56 AM CDT Ron DEAN - BEXIANG POCT LABORATORY [facility] Lab [address] [employer] Lab (1st floor, no room number) [address] * (ABNORMAL) Renal panel (03/07/2024 6:21 [...] MD LAB - BLOOD ORDERA BLES LABORATORY [facility] Acute Care Lab [address] Lab (1st floor, no room number) [address] * (ABNORMAL) INR (03/07/2024 6:21 AM CDT) INR 1.28(H) 0.85 - 1.15 03/07/2024 7:17 AM CDT RH LABORATORY Blood BLOOD SPECIMEN / Unknown Venipuncture / Unknown 03/07/2024 6:21 AM CDT 03/07/2024 7:06 AM CDT Eileen Earl MD LAB - BLOOD ORDERA BLES LABORATORY [facility] Care Lab [address] Lab (1st floor, no room number) [address] * (ABNORMAL) Hemoglobin (03/07/2024 6:21 AM CDT) Hemoglobin 7.8(L) 13.3 - 17.7 g/dL 03/07/2024 7:11 AM CDT RH LABORATORY Blood BLOOD SPECIMEN / Unknown Venipuncture / Unknown 03/07/2024 6:21 AM CDT 03/07/2024 7:06 AM CDT Eileen Earl MD LAB - BLOOD ORDERA BLES Performing Organization Address City/[facility]/ZIP Co de Phone Number LABORATORY [facility] Care Lab [address] Lab (1st floor, no room number) [address] * Glucose by meter (03/07/2024 6:19 AM CDT) GLUCOSE BY METER POCT 98 70 - 99 mg/dL 03/07/2024 6:26 AM CDT LABORATORY POC Blood, Capillary BLOOD SPECIMEN / Unknown 03/07/2024 6:19 AM CDT 03/07/2024 6:26 AM CDT Ron Tripathi MD LAB - BEAKER POCT LABORATORY [facility] Acute Care Lab [address] Lab (1st floor, no room number) [address] [place] [address] * Glucose by meter (03/07/2024 4:05 AM CDT) GLUCOSE BY METER POCT 78 70 - 99 mg/dL 03/07/2024 4:11 AM CDT RH LABORATORY POC Blood, Capillary BLOOD SPECIMEN / Unknown 03/07/2024 4:05 AM CDT 03/07/2024 4:11 AM CDT Ron Tripathi MD LAB - BEAKER POCT LABORATORY [facility] Lab [address] Lab (1st floor, no room number) [address] [place] [address] * (ABNORMAL) Hemoglobin (03/07/2024 1:04 AM CDT) Hemoglobin 7.6(L) 13.3 - 17.7 g/dL 03/07/2024 1:17 AM CDT RH LABORATORY Blood STRUCTURE OF LEFT HAND / Unknown Venipuncture / Unknown 03/07/2024 1:04 AM CDT 03/07/2024 1:14 AM CDT Eileen Earl MD LAB - BLOOD ORDERA BLES [facility] Care Lab [address] Lab (1st floor, no room number) [address] * (ABNORMAL) Glucose by meter (03/07/2024 12:40 AM CDT) GLUCOSE BY METER POCT 116(H) 70 - 99 mg/dL 03/07/2024 12:48 AM CDT RH LABORATORY POC Blood, Capillary BLOOD SPECIMEN / Unknown 03/07/2024 12:40 AM CDT 03/07/2024 12:48 AM CDT Ron DEAN - BEAKER POCT Performing Organization Address [facility]/ZIP Co de Phone Number LABORATORY [facility] Care Lab [address] Lab (1st floor, no room number) [place] [id number] [place] [address] * (ABNORMAL) Glucose by meter (03/06/2024 9:36 PM CDT) GLUCOSE BY METER POCT 112(H) 70 - 99 mg/dL 03/06/2024 9:44 PM CDT RH LABORATORY POC Blood, Capillary BLOOD SPECIMEN / Unknown 03/06/2024 9:36 PM CDT 03/06/2024 9:44 PM CDT Ron Tripathi MD LAB - BEAKER POCT Performing Organization Address [facility]/ZIP Co de Phone Number LABORATORY [facility] Lab [address] Lab (1st floor, no room number) [place] [id number] [place] [address] * Extra Serum Separator Tube (SST) (03/06/2024 7:55 PM CDT) Hold Specimen JIC 03/06/2024 9:03 PM CDT LABORATORY Blood BLOOD SPECIMEN / Unknown Venipuncture / Unknown 03/06/2024 7:55 PM CDT 03/06/2024 7:55 PM CDT Narrative Authorizing Provider Result Lauren Tripathi MD LAB - BLOOD ORDERABL ES Performing Organization Address [facility]/ZIP Co de Phone Number [facility] Lab [address] Lab (1st floor, no room number) [place] [id number] [place] [address] * (ABNORMAL) Glucose by meter (03/06/2024 6:37 PM CDT) GLUCOSE BY METER POCT 112(H) 70 - 99 mg/dL 03/06/2024 6:45 PM CDT RH LABORATORY POC Blood, Capillary BLOOD SPECIMEN / Unknown 03/06/2024 6:37 PM CDT 03/06/2024 6:45 PM CDT Ron Tripathi MD LAB - [facility] POCT RH LABORATORY [facility] Acute Care Lab [address] Lab (1st floor, no room number) [place] [address], [facility] * (ABNORMAL) CBC with platelets [...] Cheek MD LAB - BLOOD ORDERABL ES [facility] Lab [address] Lab (1st floor, no room number) [place] [address] * (ABNORMAL) Glucose (03/06/2024 4:28 PM CDT) Glucose 196(H) 70 - 99 mg/dL 03/06/2024 4:54 PM CDT RH LABORATORY Blood STRUCTURE OF LEFT UPPER LIMB / Unknown Venipuncture / Unknown 03/06/2024 4:28 PM CDT 03/06/2024 4:32 PM CDT Antonino Cheek MD LAB - BLOOD ORDERABL ES LABORATORY [facility] Acute Care Lab [address] Lab (1st floor, no room number) [place] [address], [facility] * (ABNORMAL) Basic metabolic panel (03/06/2024 [...] MD LAB - BLOOD ORDERABL ES LABORATORY [facility] Acute Care Lab [address] Lab (1st floor, no room number) [place] [address], [facility] * (ABNORMAL) Hemoglobin (03/06/2024 4:28 PM CDT) Hemoglobin 7.4(L) 13.3 - 17.7 g/dL 03/06/2024 4:47 PM CDT LABORATORY Blood STRUCTURE OF LEFT UPPER LIMB / Unknown Venipuncture / Unknown 03/06/2024 4:28 PM CDT 03/06/2024 4:33 PM CDT Eileen Earl MD LAB - BLOOD ORDERA BLES [facility] Lab [address] Lab (1st floor, no room number) [address] * (ABNORMAL) Glucose by meter (03/06/2024 4:26 PM CDT) GLUCOSE BY METER POCT 196(H) 70 - 99 mg/dL 03/06/2024 4:33 PM CDT LABORATORY POC Blood, Capillary BLOOD SPECIMEN / Unknown 03/06/2024 4:26 PM CDT 03/06/2024 4:33 PM CDT Ron DEAN - DAVID POCT Performing Organization Address City/[facility]/ZIP Co de Phone Number [facility] Lab [address] Lab (1st floor, no room number) [address] [place] [address] * (ABNORMAL) Glucose by meter (03/06/2024 4:17 PM CDT) GLUCOSE BY METER POCT 38(LL) 70 - 99 mg/dL 03/06/2024 4:24 PM CDT LABORATORY POC Comment:Dr/RN Notified Blood, Capillary BLOOD SPECIMEN / Unknown 03/06/2024 4:17 PM CDT 03/06/2024 4:24 PM CDT Ron DEAN - BEXIANG POCT LABORATORY [facility] Acute Care Lab [address] Lab (1st floor, no room number) [place] [address] * (ABNORMAL) Glucose by meter (03/06/2024 4:10 PM CDT) GLUCOSE BY METER POCT 47(LL) 70 - 99 mg/dL 03/19/2024 8:02 AM CDT LABORATORY POC Comment:Dr/RN Notified Blood, Capillary BLOOD SPECIMEN / Unknown 03/06/2024 4:10 PM CDT 03/19/2024 8:02 AM CDT Ron DEAN - BEAKER POCT Performing Organization Address City/[facility]/ZIP Co de Phone Number LABORATORY [facility] Lab [address] Lab (1st floor, no room number) [place] [address] * (ABNORMAL) Glucose by meter (03/06/2024 3:18 PM CDT) GLUCOSE BY METER POCT 64(L) 70 - 99 mg/dL 03/06/2024 3:26 PM CDT LABORATORY POC Blood, Capillary BLOOD SPECIMEN / Unknown 03/06/2024 3:18 PM CDT 03/06/2024 3:26 PM CDT Ron DEAN - DAVID POCT LABORATORY [facility] [address] Lab (1st floor, no room number) [place] [phone] * (ABNORMAL) Glucose by meter (03/06/2024 3:03 PM CDT) GLUCOSE BY METER POCT 63(L) 70 - 99 mg/dL 03/06/2024 3:11 PM CDT LABORATORY POC Blood, Capillary BLOOD SPECIMEN / Unknown 03/06/2024 3:03 PM CDT 03/06/2024 3:11 PM CDT Ron Tripathi MD LAB - BEAKER POCT Performing Organization Address City/[facility]/ZIP Co de Phone Number LABORATORY [facility] [email or web address] Lab (1st floor, no room number) [place] [address] * (ABNORMAL) Hemoglobin - Pre-Op (03/06/2024 1:23 PM CDT) Hemoglobin 7.6(L) 13.3 - 17.7 g/dL 03/06/2024 1:39 PM CDT LABORATORY Blood STRUCTURE OF RIGHT UPPER LIMB / Unknown Venipuncture / Unknown 03/06/2024 1:23 PM CDT 03/06/2024 1:34 PM CDT Antonino Cheek MD LAB - BLOOD ORDERABL ES Performing Organization Address City/[facility]/ZIP Co de Phone Number LABORATORY [facility] Lab [email or web address] Lab (1st floor, no room number) [place] [id number] * UPPER GI ENDOSCOPY (03/06/2024 1:21 PM CDT) Upper GI Endoscopy [facility] Patient Name: Herminio Victor ? Procedure [...] ?Olympus Gastroscope, Model # [id number]-H190, Censitrac # [id number] was introduced through the mouth, and ?advanced [...] Note Initiated On: 03/06/2024 1:21 PM MRN: ?[id number] Procedure Date: ? 03/06/2024 1:21:29 PM Total [...] DEAN - DAVID POCT Performing Organization Address City/[facility]/ZIP Co de Phone Number LABORATORY [facility] Lab [address] Lab (1st floor, no room number) [place] [address] * Transfuse red blood cells [...] Ron DEAN - DAVID POCT RH LABORATORY [facility] Care Lab [address] Lab (1st floor, no room number) [place] [address], [facility] * Adult Type and Screen (03/06/2024 8:53 AM CDT) ABO/RH(D) O POS 03/06/2024 7:57 AM CDT RH BLOOD BANK Antibody Screen Negative Negative 03/06/2024 7:57 AM CDT RH BLOOD BANK SPECIMEN EXPIRATION DATE [id number] 03/06/2024 7:57 AM CDT RH BLOOD BANK Blood STRUCTURE OF RIGHT HAND / Unknown Venipuncture / Unknown 03/06/2024 8:53 AM CDT 03/06/2024 9:00 AM CDT Antonino Cheek MD LAB - BLOOD BANK SHANNON T ORDER RH BLOOD BANK [address] [place] [address] * Glucose by meter (03/06/2024 7:57 AM CDT) GLUCOSE BY METER POCT 87 70 - 99 mg/dL 03/06/2024 8:04 AM CDT RH LABORATORY POC Blood, Capillary BLOOD SPECIMEN / Unknown 03/06/2024 7:57 AM CDT 03/06/2024 8:04 AM CDT Ron Tripathi MD LAB - BEAKER POCT RH LABORATORY POC [facility] Acute Care Lab [address] [facility] Lab (1st floor, no room number) [place] [address] * Prepare red blood cells (unit) (03/06/2024 7:50 AM CDT) Blood Component Type Red Blood Cells RH BLOOD BANK Product Code [id number] RH BLOO D BANK Unit Status Transfused RH BLOO D BANK Unit Number [id number] RH B LOOD BANK CROSSMATCH Compatible RH BLOOD BANK CODING SYSTEM [id number] RH BLO OD BANK ISSUE DATE AND TIME [id number] RH BLOOD BANK UNIT ABO/RH O+ RH BLOOD BANK UNIT TYPE ISBT 5100 RH BL OOD BANK 03/06/2024 7:50 AM CDT Antonino Cheek MD BLOOD BANK PRODUCT O RDERABLES [place]LOOD [place] [address], [facility] * (ABNORMAL) Renal panel (03/06/2024 6:54 [...] Earl MD LAB - BLOOD ORDERA BLES [facility] Acute Care Lab [address] Lab (1st floor, no room number) [place] [address] * (ABNORMAL) Hemoglobin (03/06/2024 6:54 AM CDT) Hemoglobin 7.0(L) 13.3 - 17.7 g/dL 03/06/2024 7:04 AM CDT RH LABORATORY Blood STRUCTURE OF RIGHT HAND / Unknown Venipuncture / Unknown 03/06/2024 6:54 AM CDT 03/06/2024 7:00 AM CDT Antonino Cheek MD LAB - BLOOD ORDERABL ES Performing Organization Address [facility]/ZIP Co de Phone Number [facility] Acute Care Lab [address] Lab (1st floor, no room number) [place] [address] * (ABNORMAL) INR (03/06/2024 6:54 AM CDT) INR 1.51(H) 0.85 - 1.15 03/06/2024 7:19 AM CDT LABORATORY Blood STRUCTURE OF RIGHT HAND / Unknown Venipuncture / Unknown 03/06/2024 6:54 AM CDT 03/06/2024 7:00 AM CDT Eileen Earl MD LAB - BLOOD ORDERA BLES Performing Organization Address City/[facility]/ZIP Co de Phone Number [facility] Care Lab [address] Lab (1st floor, no room number) [place] [address], [facility] * Glucose by meter (03/06/2024 4:05 AM CDT) GLUCOSE BY METER POCT 90 70 - 99 mg/dL 03/06/2024 4:21 AM CDT RH LABORATORY POC Blood, Capillary BLOOD SPECIMEN / Unknown 03/06/2024 4:05 AM CDT 03/06/2024 4:21 AM CDT Narrative Authorizing Provider Result Lauren DEAN - BEAKER POCT LABORATORY [facility] Care Lab [address] Lab (1st floor, no room number) [place] [address], [facility] * (ABNORMAL) Glucose by meter (03/06/2024 12:01 AM CDT) GLUCOSE BY METER POCT 101(H) 70 - 99 mg/dL 03/06/2024 12:13 AM CDT LABORATORY POC Blood, Capillary BLOOD SPECIMEN / Unknown 03/06/2024 12:01 AM CDT 03/06/2024 12:13 AM CDT Narrative Authorizing Provider Result Lauren DEAN - BEAKER POCT LABORATORY [facility] Care Lab [address] Lab (1st floor, no room number) [place] [address], [facility] * Glucose by meter (03/05/2024 10:01 PM CDT) GLUCOSE BY METER POCT 87 70 - 99 mg/dL 03/05/2024 10:09 PM CDT LABORATORY POC Blood, Capillary BLOOD SPECIMEN / Unknown 03/05/2024 10:01 PM CDT 03/05/2024 10:09 PM CDT Narrative Authorizing Provider Result Lauren DEAN - BEAKER POCT LABORATORY [facility] Lab [address] Lab (1st floor, no room number) [place] [address], [facility] * (ABNORMAL) Hemoglobin (03/05/2024 6:53 PM CDT) Hemoglobin 8.4(L) 13.3 - 17.7 g/dL 03/05/2024 7:07 PM CDT RH LABORATORY Blood STRUCTURE OF LEFT HAND / Unknown Venipuncture / Unknown 03/05/2024 6:53 PM CDT 03/05/2024 7:02 PM CDT Antonino Cheek MD LAB - BLOOD ORDERABL ES [facility] Lab [address] Lab (1st floor, no room number) [address] [place] [address] * Glucose by meter (03/05/2024 5:47 PM CDT) GLUCOSE BY METER POCT 96 70 - 99 mg/dL 03/05/2024 5:54 PM CDT LABORATORY POC Blood, Capillary BLOOD SPECIMEN / Unknown 03/05/2024 5:47 PM CDT 03/05/2024 5:54 PM CDT Ron Tripathi MD LAB - BEAKER POCT Performing Organization Address City/[facility]/ZIP Co de Phone Number LABORATORY [facility] Lab [address] Lab (1st floor, no room number) [address] * CONDITIONAL Transfuse red blood cells (unit) 1; No special requirements (03/05/2024 4:07 PM CDT) Eileen Earl MD BLOOD TRANSFUSION ORDERABLES * CONDITIONAL Prepare red blood cells (unit) (03/05/2024 12:47 PM CDT) Blood Component Type Red Blood Cells RH BLOOD BANK Product Code [id number] RH BLOO D BANK Unit Status Transfused RH BLOO D BANK Unit Number [id number] RH B LOOD BANK CROSSMATCH Compatible RH BLOOD BANK CODING SYSTEM [id number] RH BLO OD BANK ISSUE DATE AND TIME [id number] RH BLOOD BANK UNIT ABO/RH O+ RH BLOOD BANK UNIT TYPE ISBT 5100 RH BL OOD BANK 03/05/2024 12:4 7 PM CDT Ron Tripathi MD BLOOD BANK PRODUCT O RDERABLES Performing Organization Address [facility] Co de Phone Number BLOOD BANK [address] [place] [address], [facility] * (ABNORMAL) Hemoglobin (03/05/2024 12:12 PM CDT) Hemoglobin 6.9(LL) 13.3 - 17.7 g/dL 03/05/2024 12:40 PM CDT RH LABORATORY Blood STRUCTURE OF LEFT HAND / Unknown Venipuncture / Unknown 03/05/2024 12:12 PM CDT 03/05/2024 12:21 PM CDT Antonino Cheek MD LAB - BLOOD ORDERABL ES Performing Organization Address [facility] Co de Phone Number LABORATORY [facility] Acute Care Lab [address] Lab (1st floor, no room number) [place] [address], [facility] * (ABNORMAL) Glucose by meter (03/05/2024 12:06 PM CDT) GLUCOSE BY METER POCT 107(H) 70 - 99 mg/dL 03/05/2024 12:13 PM CDT LABORATORY POC Blood, Capillary BLOOD SPECIMEN / Unknown 03/05/2024 12:06 PM CDT 03/05/2024 12:13 PM CDT Ron Tripathi MD LAB - BEAKER POCT Performing Organization Address [facility]/ZIP Co de Phone Number LABORATORY POC [facility] Lab [address] Lab (1st floor, no room number) [place] [address], [facility] * Glucose by meter (03/05/2024 7:58 AM CDT) GLUCOSE BY METER POCT 83 70 - 99 mg/dL 03/05/2024 8:04 AM CDT RH LABORATORY POC Blood, Capillary BLOOD SPECIMEN / Unknown 03/05/2024 7:58 AM CDT 03/05/2024 8:04 AM CDT Ron Tripathi MD LAB - BEAKER POCT LABORATORY POC [facility] Acute Care Lab [address] Lab (1st floor, no room number) [address] * (ABNORMAL) Hemoglobin (03/05/2024 7:35 AM CDT) Hemoglobin 7.1(L) 13.3 - 17.7 g/dL 03/05/2024 8:01 AM CDT RH LABORATORY Blood STRUCTURE OF LEFT HAND / Unknown Venipuncture / Unknown 03/05/2024 7:35 AM CDT 03/05/2024 7:57 AM CDT Aashish Romero DO LAB - BLOOD ORDER NADIA [facility] Acute Care Lab [address] Lab (1st floor, no room number) [address] [place] [address] * (ABNORMAL) INR (03/05/2024 7:35 AM CDT) INR 2.20(H) 0.85 - 1.15 03/05/2024 8:13 AM CDT RH LABORATORY Blood STRUCTURE OF LEFT HAND / Unknown Venipuncture / Unknown 03/05/2024 7:35 AM CDT 03/05/2024 7:57 AM CDT Eileen Earl MD LAB - BLOOD ORDERA BLES [facility] Acute Care Lab [address] Lab (1st floor, no room number) [place] [address] [place] [address] * (ABNORMAL) Comprehensive metabolic panel (03/05/2024 7:35 [...] LAB - BLOOD ORDER NADIA RH LABORATORY [facility] [address] [facility] ([facility] floor, no room number) [place] [address] * (ABNORMAL) CBC with platelets [...] DO LAB - BLOOD ORDER NADIA LABORATORY [facility] Care Lab [address] Lab (1st floor, no room number) [place] [address], [facility] * (ABNORMAL) Glucose by meter (03/05/2024 4:09 AM CDT) GLUCOSE BY METER POCT 107(H) 70 - 99 mg/dL 03/05/2024 4:16 AM CDT RH LABORATORY POC Blood, Capillary BLOOD SPECIMEN / Unknown 03/05/2024 4:09 AM CDT 03/05/2024 4:16 AM CDT Ron DEAN - DAVID POCT Performing Organization Address City/[facility]/ZIP Co de Phone Number LABORATORY [facility] Lab [address] Lab (1st floor, no room number) [place] [address], [facility] * (ABNORMAL) Glucose by meter (03/05/2024 3:22 AM CDT) GLUCOSE BY METER POCT 115(H) 70 - 99 mg/dL 03/05/2024 3:30 AM CDT LABORATORY POC Blood, Capillary BLOOD SPECIMEN / Unknown 03/05/2024 3:22 AM CDT 03/05/2024 3:30 AM CDT Ron DEAN - BEAKER POCT LABORATORY [facility] Lab [address] Lab (1st floor, no room number) [place] [address] [place] [address] * (ABNORMAL) Glucose by meter (03/05/2024 12:07 AM CDT) GLUCOSE BY METER POCT 118(H) 70 - 99 mg/dL 03/05/2024 12:14 AM CDT RH LABORATORY POC Blood, Capillary BLOOD SPECIMEN / Unknown 03/05/2024 12:07 AM CDT 03/05/2024 12:14 AM CDT Ron DEAN - EVERAKER POCT LABORATORY [facility] Care Lab [address] Lab (1st floor, no room number) [address] * (ABNORMAL) Glucose by meter (03/04/2024 9:37 PM CDT) GLUCOSE BY METER POCT 132(H) 70 - 99 mg/dL 03/04/2024 9:45 PM CDT LABORATORY POC Blood, Capillary BLOOD SPECIMEN / Unknown 03/04/2024 9:37 PM CDT 03/04/2024 9:45 PM CDT Narrative Authorizing Provider Result Lauren DEAN - DAVID POCT LABORATORY [facility] Lab [address] Lab (1st floor, no room number) [address] * (ABNORMAL) Glucose by meter (03/04/2024 8:34 PM CDT) GLUCOSE BY METER POCT 122(H) 70 - 99 mg/dL 03/04/2024 8:41 PM CDT RH LABORATORY POC Blood, Capillary BLOOD SPECIMEN / Unknown 03/04/2024 8:34 PM CDT 03/04/2024 8:41 PM CDT Narrative Authorizing Provider Result Lauren HERNANDEZ POCT LABORATORY [facility] Care Lab [address] Lab (1st floor, no room number) [address] * (ABNORMAL) Potassium (03/04/2024 6:29 PM CDT) Potassium 5.6(H) 3.4 - 5.3 mmol/L 03/04/2024 7:00 PM CDT RH LABORATORY Blood STRUCTURE OF LEFT HAND / Unknown Venipuncture / Unknown 03/04/2024 6:29 PM CDT 03/04/2024 6:37 PM CDT Job Her MD LAB - BLOOD ORDERABL ES [facility] Care Lab [address] Lab (1st floor, no room number) [address] * (ABNORMAL) Hemoglobin (03/04/2024 6:29 PM CDT) Hemoglobin 7.7(L) 13.3 - 17.7 g/dL 03/04/2024 6:41 PM CDT LABORATORY Blood STRUCTURE OF LEFT HAND / Unknown Venipuncture / Unknown 03/04/2024 6:29 PM CDT 03/04/2024 6:37 PM CDT Aashish Romero DO LAB - BLOOD ORDER NADIA [facility] Care Lab [address] Lab (1st floor, no room number) [address] * Glucose by meter (03/04/2024 5:44 PM CDT) GLUCOSE BY METER POCT 93 70 - 99 mg/dL 03/04/2024 5:51 PM CDT LABORATORY POC Blood, Capillary BLOOD SPECIMEN / Unknown 03/04/2024 5:44 PM CDT 03/04/2024 5:51 PM CDT Ron Tripathi MD LAB - DAVID POCT Performing Organization Address City/[facility]/ZIP Co de Phone Number LABORATORY [facility] Lab [address] Lab (1st floor, no room number) [place] [address] * Glucose by meter (03/04/2024 3:12 PM CDT) GLUCOSE BY METER POCT 96 70 - 99 mg/dL 03/04/2024 3:19 PM CDT RH LABORATORY POC Blood, Capillary BLOOD SPECIMEN / Unknown 03/04/2024 3:12 PM CDT 03/04/2024 3:19 PM CDT Ron DEAN - DAVID POCT Performing Organization Address City/[facility]/ZIP Co de Phone Number LABORATORY [facility] Care Lab [address] Lab (1st floor, no room number) [place] [address] * Glucose by meter (03/04/2024 1:46 PM CDT) GLUCOSE BY METER POCT 86 70 - 99 mg/dL 03/04/2024 1:53 PM CDT LABORATORY POC Blood, Capillary BLOOD SPECIMEN / Unknown 03/04/2024 1:46 PM CDT 03/04/2024 1:53 PM CDT Narrative Authorizing Provider Result Lauren DEAN - DAVID POCT Performing Organization Address City/[facility]/ZIP Co de Phone Number LABORATORY [facility] Care Lab [address] Lab (1st floor, no room number) [place] [address] * (ABNORMAL) Glucose by meter (03/04/2024 1:09 PM CDT) GLUCOSE BY METER POCT 67(L) 70 - 99 mg/dL 03/04/2024 1:15 PM CDT RH LABORATORY POC Blood, Capillary BLOOD SPECIMEN / Unknown 03/04/2024 1:09 PM CDT 03/04/2024 1:15 PM CDT Ron Tripathi MD LAB - BEAKER POCT LABORATORY [facility] Lab [address] Lab (1st floor, no room number) [place] [id number] [place] [address] * (ABNORMAL) Glucose by meter (03/04/2024 11:59 AM CDT) GLUCOSE BY METER POCT 69(L) 70 - 99 mg/dL 03/04/2024 12:06 PM CDT RH LABORATORY POC Blood, Capillary BLOOD SPECIMEN / Unknown 03/04/2024 11:59 AM CDT 03/04/2024 12:06 PM CDT Ron Tripathi MD LAB - BEAKER POCT Performing Organization Address City/[facility]/ZIP Co de Phone Number LABORATORY [facility] Lab [address] Lab (1st floor, no room number) [place] [phone] [place] [address] * Glucose by meter (03/04/2024 10:47 AM CDT) GLUCOSE BY METER POCT 74 70 - 99 mg/dL 03/04/2024 11:06 AM CDT RH LABORATORY POC Blood, Capillary BLOOD SPECIMEN / Unknown 03/04/2024 10:47 AM CDT 03/04/2024 11:06 AM CDT Ron Tripathi MD LAB - BEAKER POCT LABORATORY [facility] Lab [address] Lab (1st floor, no room number) [place] [address], [facility] * Glucose by meter (03/04/2024 8:58 AM CDT) GLUCOSE BY METER POCT 81 70 - 99 mg/dL 03/04/2024 9:06 AM CDT RH LABORATORY POC Blood, Capillary BLOOD SPECIMEN / Unknown 03/04/2024 8:58 AM CDT 03/04/2024 9:06 AM CDT Ron Tripathi MD LAB - BEAKER POCT LABORATORY [facility] Lab [address] Lab (1st floor, no room number) [place] [address] * Glucose by meter (03/04/2024 7:03 AM CDT) GLUCOSE BY METER POCT 76 70 - 99 mg/dL 03/04/2024 7:10 AM CDT LABORATORY POC Blood, Capillary BLOOD SPECIMEN / Unknown 03/04/2024 7:03 AM CDT 03/04/2024 7:10 AM CDT Ron DEAN - BEAKER POCT Performing Organization Address [facility]/ZIP Co de Phone Number LABORATORY [facility] Lab [address] Lab (1st floor, no room number) [place] [phone] [place] [address] * (ABNORMAL) Comprehensive metabolic panel (03/04/2024 6:45 [...] DO LAB - BLOOD ORDER NADIA LABORATORY [facility] Acute Care Lab [address] Lab (1st floor, no room number) [place] [address] * (ABNORMAL) CBC with platelets (03/04/2024 [...] LAB - BLOOD ORDER NADIA RH LABORATORY [facility] Acute Care Lab [address] Lab (1st floor, no room number) [place] [address], [facility] * (ABNORMAL) Hemoglobin (03/04/2024 6:45 AM CDT) Hemoglobin 7.1(L) 13.3 - 17.7 g/dL 03/04/2024 6:57 AM CDT RH LABORATORY Blood STRUCTURE OF RIGHT UPPER LIMB / Unknown Venipuncture / Unknown 03/04/2024 6:45 AM CDT 03/04/2024 6:54 AM CDT Ron Tripathi MD LAB - BLOOD ORDERABL ES LABORATORY [facility] Care Lab [address] Lab (1st floor, no room number) [place] [address], [facility] * Cortisol (03/04/2024 6:45 AM [...] DO LAB - BLOOD ORDER NADIA LABORATORY [facility] [place] [facility] [address] [facility], [address] [place] [address], [facility] * Glucose by meter (03/04/2024 5:08 AM CDT) GLUCOSE BY METER POCT 93 70 - 99 mg/dL 03/04/2024 5:15 AM CDT LABORATORY POC Blood, Capillary BLOOD SPECIMEN / Unknown 03/04/2024 5:08 AM CDT 03/04/2024 5:15 AM CDT Rno Tripathi MD LAB - BEAKER POCT LABORATORY POC [facility] Acute Care Lab [address] Lab (1st floor, no room number) [place] [address], [facility] * (ABNORMAL) Glucose by meter (03/04/2024 3:28 AM CDT) GLUCOSE BY METER POCT 116(H) 70 - 99 mg/dL 03/04/2024 3:36 AM CDT RH LABORATORY POC Blood, Capillary BLOOD SPECIMEN / Unknown 03/04/2024 3:28 AM CDT 03/04/2024 3:36 AM CDT Narrative Authorizing Provider Result Lauren DEAN - BEAKER POCT LABORATORY [facility] Lab [address] Lab (1st floor, no room number) [place] [address] * Glucose by meter (03/04/2024 2:12 AM CDT) GLUCOSE BY METER POCT 77 70 - 99 mg/dL 03/04/2024 2:20 AM CDT RH LABORATORY POC Comment:Dr/RN Notified Blood, Capillary BLOOD SPECIMEN / Unknown 03/04/2024 2:12 AM CDT 03/04/2024 2:20 AM CDT Narrative Authorizing Provider Result Lauren DEAN - BEXIANG POCT Performing Organization Address City/[facility]/ZIP Co de Phone Number LABORATORY [facility] Lab [address] Lab (1st floor, no room number) [place] [address] * Glucose by meter (03/04/2024 12:25 AM CDT) GLUCOSE BY METER POCT 96 70 - 99 mg/dL 03/04/2024 12:32 AM CDT RH LABORATORY POC Blood, Capillary BLOOD SPECIMEN / Unknown 03/04/2024 12:25 AM CDT 03/04/2024 12:32 AM CDT Narrative Authorizing Provider Result Lauren Tripathi MD LAB - BEAKER POCT LABORATORY [facility] Lab [address] Lab (1st floor, no room number) [address] * (ABNORMAL) Hemoglobin (03/03/2024 9:40 PM CDT) Hemoglobin 7.2(L) 13.3 - 17.7 g/dL 03/03/2024 9:53 PM CDT RH LABORATORY Blood STRUCTURE OF RIGHT UPPER LIMB / Unknown Venipuncture / Unknown 03/03/2024 9:40 PM CDT 03/03/2024 9:50 PM CDT Narrative Authorizing Provider Result Lauren rTipathi MD LAB - BLOOD ORDERABL ES LABORATORY [facility] Care Lab [address] Lab (1st floor, no room number) [address] * (ABNORMAL) Glucose by meter (03/03/2024 8:13 PM CDT) GLUCOSE BY METER POCT 144(H) 70 - 99 mg/dL 03/03/2024 8:20 PM CDT LABORATORY POC Blood, Capillary BLOOD SPECIMEN / Unknown 03/03/2024 8:13 PM CDT 03/03/2024 8:20 PM CDT Narrative Authorizing Provider Result Lauren DEAN - BEAKER POCT Performing Organization Address City/[facility]/ZIP Co de Phone Number LABORATORY POC [facility] Care Lab [address] Lab (1st floor, no room number) [address] * (ABNORMAL) Glucose by meter (03/03/2024 6:23 PM CDT) GLUCOSE BY METER POCT 110(H) 70 - 99 mg/dL 03/03/2024 6:29 PM CDT LABORATORY POC Blood, Capillary BLOOD SPECIMEN / Unknown 03/03/2024 6:23 PM CDT 03/03/2024 6:29 PM CDT Narrative Authorizing Provider Result Lauren DEAN - BEAKER POCT LABORATORY [facility] Lab [address] Lab (1st floor, no room number) [place] [address] * (ABNORMAL) Glucose by meter (03/03/2024 5:39 PM CDT) GLUCOSE BY METER POCT 57(L) 70 - 99 mg/dL 03/03/2024 5:45 PM CDT RH LABORATORY POC Blood, Capillary BLOOD SPECIMEN / Unknown 03/03/2024 5:39 PM CDT 03/03/2024 5:45 PM CDT Ron DEAN - BEAKER POCT Performing Organization Address [facility]/ZIP Co de Phone Number LABORATORY [facility] Lab [address] Lab (1st floor, no room number) [place] [address] * (ABNORMAL) Glucose by meter (03/03/2024 5:11 PM CDT) GLUCOSE BY METER POCT 64(L) 70 - 99 mg/dL 03/03/2024 5:18 PM CDT LABORATORY POC Blood, Capillary BLOOD SPECIMEN / Unknown 03/03/2024 5:11 PM CDT 03/03/2024 5:18 PM CDT Ron DEAN - DAVID POCT Performing Organization Address [facility]/ZIP Co de Phone Number LABORATORY [facility] Lab [address] Lab (1st floor, no room number) [place] [address] * (ABNORMAL) Glucose by meter (03/03/2024 4:39 PM CDT) GLUCOSE BY METER POCT 55(L) 70 - 99 mg/dL 03/03/2024 4:46 PM CDT RH LABORATORY POC Blood, Capillary BLOOD SPECIMEN / Unknown 03/03/2024 4:39 PM CDT 03/03/2024 4:46 PM CDT Narrative Authorizing Provider Result Lauren Tripathi MD LAB - BEAKER POCT LABORATORY [facility] Lab [address] Lab (1st floor, no room number) [address] * (ABNORMAL) Glucose by meter (03/03/2024 4:17 PM CDT) GLUCOSE BY METER POCT 65(L) 70 - 99 mg/dL 03/03/2024 4:25 PM CDT RH LABORATORY POC Blood, Capillary BLOOD SPECIMEN / Unknown 03/03/2024 4:17 PM CDT 03/03/2024 4:25 PM CDT Ron Tripathi MD LAB - BEAKER POCT Performing Organization Address City/[facility]/ZIP Co de Phone Number LABORATORY [facility] Lab [address] Lab (1st floor, no room number) [address] * (ABNORMAL) Glucose by meter (03/03/2024 2:11 PM CDT) GLUCOSE BY METER POCT 65(L) 70 - 99 mg/dL 03/03/2024 2:17 PM CDT LABORATORY POC Blood, Capillary BLOOD SPECIMEN / Unknown 03/03/2024 2:11 PM CDT 03/03/2024 2:17 PM CDT Ron Tripathi MD LAB - BEAKER POCT LABORATORY [facility] Lab [address] Lab (1st floor, no room number) [address] * (ABNORMAL) Hemoglobin (03/03/2024 2:07 PM CDT) Hemoglobin 7.6(L) 13.3 - 17.7 g/dL 03/03/2024 2:13 PM CDT RH LABORATORY Blood STRUCTURE OF RIGHT UPPER LIMB / Unknown Venipuncture / Unknown 03/03/2024 2:07 PM CDT 03/03/2024 2:10 PM CDT Narrative Authorizing Provider Result Lauren Tripathi MD LAB - BLOOD ORDERABL ES Performing Organization Address [facility]/State/ZIP Co de Phone Number [facility] [address] Lab (1st floor, no room number) [place] [address], [facility] * (ABNORMAL) Glucose by meter (03/03/2024 11:59 AM CDT) GLUCOSE BY METER POCT 152(H) 70 - 99 mg/dL 03/03/2024 2:15 PM CDT LABORATORY POC Blood, Capillary BLOOD SPECIMEN / Unknown 03/03/2024 11:59 AM CDT 03/03/2024 2:15 PM CDT Narrative Authorizing Provider Result Lauren DEAN - BEAKER POCT Performing Organization Address [facility]/ZIP Co de Phone Number [facility] [address] Lab (1st floor, no room number) [place] [address], [facility] * Glucose by meter (03/03/2024 11:36 AM CDT) GLUCOSE BY METER POCT 80 70 - 99 mg/dL 03/03/2024 2:14 PM CDT LABORATORY POC Blood, Capillary BLOOD SPECIMEN / Unknown 03/03/2024 11:36 AM CDT 03/03/2024 2:14 PM CDT Narrative Authorizing Provider Result Lauren DEAN - BEAKER POCT Performing Organization Address City/[facility]/ZIP Co de Phone Number LABORATORY [facility] [address] Lab (1st floor, no room number) [place] [address], [facility] * (ABNORMAL) Glucose by meter (03/03/2024 11:14 AM CDT) GLUCOSE BY METER POCT 39(LL) 70 - 99 mg/dL 03/03/2024 2:14 PM CDT LABORATORY POC Comment:Dr/RN Notified Blood, Capillary BLOOD SPECIMEN / Unknown 03/03/2024 11:14 AM CDT 03/03/2024 2:14 PM CDT Ron Tripathi MD LAB - BEAKER POCT LABORATORY [facility] [address] Lab (1st floor, no room number) [address] [place] [address] * Glucose by meter (03/03/2024 10:51 AM CDT) GLUCOSE BY METER POCT 79 70 - 99 mg/dL 03/03/2024 10:58 AM CDT LABORATORY POC Blood, Capillary BLOOD SPECIMEN / Unknown 03/03/2024 10:51 AM CDT 03/03/2024 10:58 AM CDT Ron Tripathi MD LAB - BEAKER POCT Performing Organization Address City/[facility]/ZIP Co de Phone Number LABORATORY [facility] Lab [address] Lab (1st floor, no room number) [place] [phone], [facility] * (ABNORMAL) Glucose by meter (03/03/2024 10:30 AM CDT) GLUCOSE BY METER POCT 56(L) 70 - 99 mg/dL 03/03/2024 10:37 AM CDT LABORATORY POC Blood, Capillary BLOOD SPECIMEN / Unknown 03/03/2024 10:30 AM CDT 03/03/2024 10:37 AM CDT Ron Tripathi MD LAB - BEAKER POCT LABORATORY [facility] Lab [address] Lab (1st floor, no room number) [place] [phone], [facility] * (ABNORMAL) Hemoglobin (03/03/2024 6:10 AM CDT) Hemoglobin 7.1(L) 13.3 - 17.7 g/dL 03/03/2024 6:27 AM CDT RH LABORATORY Blood STRUCTURE OF RIGHT UPPER LIMB / Unknown Venipuncture / Unknown 03/03/2024 6:10 AM CDT 03/03/2024 6:25 AM CDT Ron Tripathi MD LAB - BLOOD ORDERABL ES Performing Organization Address City/[facility]/ZIP Co de Phone Number LABORATORY [facility] Lab [address] Lab (1st floor, no room number) [place] [id number] [place] [address] * (ABNORMAL) INR (03/03/2024 6:10 AM CDT) INR 2.23(H) 0.85 - 1.15 03/03/2024 6:46 AM CDT RH LABORATORY Blood STRUCTURE OF RIGHT UPPER LIMB / Unknown Venipuncture / Unknown 03/03/2024 6:10 AM CDT 03/03/2024 6:25 AM CDT Ron Tripathi MD LAB - BLOOD ORDERABL ES Performing Organization Address [facility] Co de Phone Number [facility] Lab [address] Lab (1st floor, no room number) [place] [phone] [place] [address] * (ABNORMAL) CBC with platelets (03/03/2024 6:10 [...] MD LAB - BLOOD ORDERABL ES LABORATORY [facility] Lab [address] [facility] Lab (1st floor, no room number) [place] [address] * (ABNORMAL) Basic metabolic panel [...] MD LAB - BLOOD ORDERABL ES LABORATORY [facility] Lab [address] Lab (1st floor, no room number) [place] [id number] * (ABNORMAL) Glucose by meter (03/03/2024 5:27 AM CDT) GLUCOSE BY METER POCT 135(H) 70 - 99 mg/dL 03/03/2024 5:34 AM CDT LABORATORY POC Blood, Capillary BLOOD SPECIMEN / Unknown 03/03/2024 5:27 AM CDT 03/03/2024 5:34 AM CDT Narrative Authorizing Provider Result Lauren Tripathi MD LAB - BEAKER POCT LABORATORY POC [facility] Lab [address] Lab (1st floor, no room number) [place] [address], [facility] * Glucose by meter (03/03/2024 4:16 AM CDT) GLUCOSE BY METER POCT 71 70 - 99 mg/dL 03/03/2024 4:23 AM CDT RH LABORATORY POC Blood, Capillary BLOOD SPECIMEN / Unknown 03/03/2024 4:16 AM CDT 03/03/2024 4:23 AM CDT Ron Tripathi MD LAB - BEAKER POCT LABORATORY [facility] Lab [address] Lab (1st floor, no room number) [place] [id number] [place] [address] * Glucose by meter (03/03/2024 2:40 AM CDT) GLUCOSE BY METER POCT 91 70 - 99 mg/dL 03/03/2024 2:46 AM CDT LABORATORY POC Blood, Capillary BLOOD SPECIMEN / Unknown 03/03/2024 2:40 AM CDT 03/03/2024 2:46 AM CDT Ron Tripathi MD LAB - BEXIANG POCT Performing Organization Address [facility]/ZIP Co de Phone Number LABORATORY [facility] Lab [address] Lab (1st floor, no room number) [place] [phone] [place] [address] * CONDITIONAL Transfuse red blood cells (unit) [...] CDT Ron DEAN - BEXIANG POCT LABORATORY [facility] Lab [address] Lab (1st floor, no room number) [place] [phone] [place] [address] * Glucose by meter (03/03/2024 12:34 AM CDT) GLUCOSE BY METER POCT 74 70 - 99 mg/dL 03/03/2024 12:40 AM CDT LABORATORY POC Blood, Capillary BLOOD SPECIMEN / Unknown 03/03/2024 12:34 AM CDT 03/03/2024 12:40 AM CDT Ron Tripathi MD LAB - BEAKER POCT [facility] Lab [address] Lab (1st floor, no room number) [address] * Transfuse red blood cells (unit) [...] - BLOOD ORDERABL ES Performing Organization Address [facility]/ZIP Co de Phone Number [facility] Lab [address] Lab (1st floor, no room number) [address] * (ABNORMAL) Glucose by meter (03/02/2024 9:34 PM CDT) GLUCOSE BY METER POCT 126(H) 70 - 99 mg/dL 03/02/2024 10:03 PM CDT LABORATORY POC Blood, Capillary BLOOD SPECIMEN / Unknown 03/02/2024 9:34 PM CDT 03/02/2024 10:03 PM CDT Narrative Authorizing Provider Result Lauren DEAN - BEAKER POCT LABORATORY POC [facility] Lab [address] Lab (1st floor, no room number) [place] [phone] [place] [address] * (ABNORMAL) Glucose by meter (03/02/2024 9:01 PM CDT) GLUCOSE BY METER POCT 136(H) 70 - 99 mg/dL 03/02/2024 9:11 PM CDT RH LABORATORY POC Blood, Capillary BLOOD SPECIMEN / Unknown 03/02/2024 9:01 PM CDT 03/02/2024 9:11 PM CDT Ron DEAN - BEAKER POCT LABORATORY [facility] Lab [address] Lab (1st floor, no room number) [place] [phone] [place] [address] * (ABNORMAL) Glucose by meter (03/02/2024 8:26 PM CDT) GLUCOSE BY METER POCT 65(L) 70 - 99 mg/dL 03/02/2024 8:34 PM CDT LABORATORY POC Blood, Capillary BLOOD SPECIMEN / Unknown 03/02/2024 8:26 PM CDT 03/02/2024 8:34 PM CDT Ron DEAN - EVERAKER POCT LABORATORY [facility] Lab [address] Lab (1st floor, no room number) [place] [phone] [place] [address] * (ABNORMAL) Glucose by meter (03/02/2024 8:01 PM CDT) GLUCOSE BY METER POCT 54(L) 70 - 99 mg/dL 03/02/2024 8:27 PM CDT LABORATORY POC Blood, Capillary BLOOD SPECIMEN / Unknown 03/02/2024 8:01 PM CDT 03/02/2024 8:27 PM CDT Ron DEAN - BEAKER POCT Performing Organization Address [facility]/ZIP Co de Phone Number LABORATORY [facility] Lab [address] Lab (1st floor, no room number) [address] * (ABNORMAL) Glucose by meter (03/02/2024 7:45 PM CDT) GLUCOSE BY METER POCT 41(LL) 70 - 99 mg/dL 03/02/2024 7:55 PM CDT RH LABORATORY POC Blood, Capillary BLOOD SPECIMEN / Unknown 03/02/2024 7:45 PM CDT 03/02/2024 7:55 PM CDT Ron Tripathi MD LAB - BEAKER POCT Performing Organization Address [facility]/ZIP Co de Phone Number LABORATORY [facility] Lab [address] Lab (1st floor, no room number) [address] * (ABNORMAL) Ammonia (on ice) (03/02/2024 3:55 PM CDT) Ammonia <10(L) 16 - 60 umol/L 03/02/2024 4:21 PM CDT RH LABORATORY Blood STRUCTURE OF RIGHT UPPER LIMB / Unknown Venipuncture / Unknown 03/02/2024 3:55 PM CDT 03/02/2024 3:57 PM CDT Raúl Bernard MD LAB - BLOOD ORDERABL ES [facility] Lab [address] Lab (1st floor, no room number) [address] [place] [address] * Prepare red blood cells (unit) (03/02/2024 3:29 PM CDT) Blood Component Type Red Blood Cells RH BLOOD BANK Product Code [id number] RH BLOO D BANK Unit Status Transfused RH BLOO D BANK Unit Number [id number] RH B LOOD BANK CROSSMATCH Compatible RH BLOOD BANK CODING SYSTEM [id number] RH BLO OD BANK ISSUE DATE AND TIME [id number] RH BLOOD BANK UNIT ABO/RH O+ RH BLOOD BANK UNIT TYPE ISBT 5100 RH BL OOD BANK 03/02/2024 3:29 PM CDT Raúl Bernard MD BLOOD BANK PRODUCT O RDERABLES Performing Organization Address [facility] Co de Phone Number RH BLOOD BANK [address] [place] [address] * Prepare red blood cells (unit) (03/02/2024 3:29 PM CDT) Blood Component Type Red Blood Cells RH BLOOD BANK Product Code [id number] RH BLOO D BANK Unit Status Transfused RH BLOO D BANK Unit Number [id number] RH B LOOD BANK CROSSMATCH Compatible RH BLOOD BANK CODING SYSTEM [id number] RH BLO OD BANK ISSUE DATE AND TIME [id number] RH BLOOD BANK UNIT ABO/RH O+ RH BLOOD BANK UNIT TYPE ISBT 5100 RH BL OOD BANK 03/02/2024 3:29 PM CDT Raúl Bernard MD BLOOD BANK PRODUCT O RDERABLES Performing Organization Address [facility] de Phone Number RH BLOOD BANK [address] [place] [address], [place] * EKG 12-lead, tracing only (03/02/2024 2:00 PM CDT) Systolic Blood Pressure mmHg RADIOLOGY RESULTS Diastolic Blood Pressure mmHg RADIOLOGY RESULTS Ventricular Rate 82 BPM RAD IOLOGY RESULTS Atrial Rate 82 BPM RADIOLOG Y RESULTS SC Interval 210 ms RADIOLOG Y RESULTS QRS Duration 88 ms RADIOLO GY RESULTS QT 382 ms RADIOLOGY RESULTS QTc 446 ms RADIOLOGY RESULTS P [place] 45 degrees RADIOLOGY RESULTS R AXIS -7 degrees RADIOLOGY RESULTS T [place] 24 degrees RADIOLOGY RESULTS Interpretation ECG Sinus rhythm with 1st degree A-V block Inferior infarct , age undetermined Abnormal ECG When compared with ECG of 24-FEB-2024 10:12, No significant change was found Unconfirmed report - interpretation of this ECG is computer generated - see medical record for final interpretation Confirmed by - EMERGENCY ROOM, PHYSICIAN ([place]), department editor YISSEL VELASQUEZ ([id number]) on 03/02/2024 3:43:16 PM [...] the Xpert Xpress CoV2/Flu/RSV Assay on the [employer] GeneXpert Instrument. This test should be ordered [...] management. This test was validated by the [facility] [employer]. These laboratories are certified under the Clinical Laboratory Improvement Amendments of 1988 (CLIA-88) as qualified to perform high complexity laboratory testing. Raúl Bernard MD LAB - MICRO GENERAL ORDERABLES [facility] Lab [address] [facility] Lab (1st floor, no room number) [place] [address] * Hemoglobin A1c (03/02/2024 1:56 PM CDT) Hemoglobin A1C 5.5 <5.7 % 03/02/2024 7:31 PM CDT RH LABORATORY Comment: Normal <5.7% Prediabetes 5.7-6.4% ?? Diabetes 6.5% or higher Note: Adopted from ADA consensus guidelines. Blood BLOOD SPECIMEN / Unknown Venipuncture / Unknown 03/02/2024 1:56 PM CDT 03/02/2024 2:15 PM CDT Ron Tripathi MD LAB - BLOOD ORDERABL ES Performing Organization Address [facility]/ZIP Co de Phone Number [facility] [address] [facility] ([facility] floor, no room number) [place] [address] * Adult Type and Screen (03/02/2024 1:56 PM CDT) ABO/RH(D) O POS 03/02/2024 2:59 PM CDT RH BLOOD BANK Antibody Screen Negative Negative 03/02/2024 2:59 PM CDT RH BLOOD BANK SPECIMEN EXPIRATION DATE [id number] 03/02/2024 2:59 PM CDT RH BLOOD BANK Blood BLOOD SPECIMEN / Unknown Venipuncture / Unknown 03/02/2024 1:56 PM CDT 03/02/2024 2:15 PM CDT Raúl Bernard MD LAB - BLOOD BANK SHANNON T ORDER Performing Organization Address City/[facility]/ZIP Co de Phone Number BLOOD BANK [address] [place] [address] * (ABNORMAL) CBC with platelets [...] - BLOOD ORDERABL ES Performing Organization Address City/[facility]/ZIP Co de Phone Number [facility] Lab [address] Lab (1st floor, no room number) [address] [place] [address] * (ABNORMAL) INR (03/02/2024 1:56 PM CDT) INR 2.09(H) 0.85 - 1.15 03/02/2024 3:14 PM CDT RH LABORATORY Blood BLOOD SPECIMEN / Unknown Venipuncture / Unknown 03/02/2024 1:56 PM CDT 03/02/2024 2:15 PM CDT Raúl Bernard MD LAB - BLOOD ORDERABL ES Performing Organization Address City/[facility]/ZIP Co de Phone Number LABORATORY [facility] Lab [address] Lab (1st floor, no room number) [place] [phone] [place] [address] * (ABNORMAL) Comprehensive metabolic panel (03/02/2024 1:56 [...] Bernard MD LAB - BLOOD ORDERABL ES [facility] Lab [address] Lab (1st floor, no room number) [place] [address] * Extra Heparinized Syringe (03/02/2024 1:56 PM CDT) Hold Specimen [facility] 03/02/2024 3:17 PM CDT RH LABORATORY Blood, venous BLOOD SPECIMEN / Unknown Venipuncture / Unknown 03/02/2024 1:56 PM CDT 03/02/2024 2:14 PM CDT Raúl Bernard MD LAB - BLOOD ORDERABL ES Performing Organization Address [facility]/ZIP Co de Phone Number [facility] Lab [address] Lab (1st floor, no room number) [place] [address], [facility] * Extra Blood Bank Purple Top Tube (03/02/2024 1:56 PM CDT) Hold Specimen [facility] 03/02/2024 3:17 PM CDT RH LABORATORY Blood BLOOD SPECIMEN / Unknown Venipuncture / Unknown 03/02/2024 1:56 PM CDT 03/02/2024 2:15 PM CDT Raúl Bernard MD LAB - BLOOD ORDERABL ES Performing Organization Address City/[facility]/ZIP Co de Phone Number [facility] Lab [address] Lab (1st floor, no room number) [place] [address] * Extra Blood Bank Purple Top Tube (03/02/2024 1:56 PM CDT) Hold Specimen [facility] 03/02/2024 3:17 PM CDT RH LABORATORY Blood BLOOD SPECIMEN / Unknown Venipuncture / Unknown 03/02/2024 1:56 PM CDT 03/02/2024 2:15 PM CDT Raúl Bernard MD LAB - BLOOD ORDERABL ES [facility] Lab [address] Lab (1st floor, no room number) [place] [address], [facility] * Extra Purple Top Tube (03/02/2024 1:56 PM CDT) Hold Specimen [facility] 03/02/2024 3:17 PM CDT RH LABORATORY Blood BLOOD SPECIMEN / Unknown Venipuncture / Unknown 03/02/2024 1:56 PM CDT 03/02/2024 2:15 PM CDT Raúl Bernard MD LAB - BLOOD ORDERABL ES Performing Organization Address [facility]/ZIP Co de Phone Number [facility] Lab [address] Lab (1st floor, no room number) [place] [address], [facility] * Extra Green Top (Ali Chuk Heparin) Tube (03/02/2024 1:56 PM CDT) Hold Specimen [facility] 03/02/2024 3:17 PM CDT RH LABORATORY Blood BLOOD SPECIMEN / Unknown Venipuncture / Unknown 03/02/2024 1:56 PM CDT 03/02/2024 2:15 PM CDT Raúl Bernard MD LAB - BLOOD ORDERABL ES [facility] Lab [address] Lab (1st floor, no room number) [place] [address], [facility] * Extra Red Top Tube (03/02/2024 1:56 PM CDT) Hold Specimen [facility] 03/02/2024 3:17 PM CDT RH LABORATORY Blood BLOOD SPECIMEN / Unknown Venipuncture / Unknown 03/02/2024 1:56 PM CDT 03/02/2024 2:15 PM CDT Raúl Bernard MD LAB - BLOOD ORDERABL ES Performing Organization Address [facility]/ZIP Co de Phone Number [facility] Lab [address] Lab (1st floor, no room number) [place] [address] * Extra Blue Top Tube (03/02/2024 1:56 PM CDT) Hold Specimen [facility] 03/02/2024 3:17 PM CDT RH LABORATORY Blood BLOOD SPECIMEN / Unknown Venipuncture / Unknown 03/02/2024 1:56 PM CDT 03/02/2024 2:15 PM CDT Raúl Bernard MD LAB - BLOOD ORDERABL ES Performing Organization Address [facility] de Phone Number [facility] Lab [address] Lab (1st floor, no room number) [place] [phone] documented in this encounter Visit [...] stools. documented in this encounter Care Teams Pulp Press Tender Relationship Specialty Start Date End Date Cornell Butt: [id number] PCP - General 06/24/11 documented as of this encounter
--- OUTSIDE RECORDS SUMMARY | 2024-06-04 15:44 | XMS_ITS | Encounter Summary ---
Author Organization [facility] Address [address] [place] [address] Care Team Providers Care Middle School Coach Name Role Phone Cornell Butt Primary Care Provider [phone] Reason for Visit * Reason Comments Generalized Weakness * Auth/Cert (Routine) Specialty Diagnoses / Procedures Referred By Contac t Referred To Contact Med Surg Diagnoses Black stool Anemia, unspecified type Anemia, unspecified type Black stool 5 Medical Surgical [address] [place] [address] Referral ID Status Reason Start Date Expiration Date Visits Re quested Visits Authorized [id number] 1 1 Encounter Details Date Type Department Care Team (Late st Contact Info) Description 03/08/2024 12:20 PM CDT - 03/08/2024 12:50 PM CDT Surgery [facility] [place] [address] [place] [address] Eileen Earl MD [facility] [address] [place] [id number] Colonoscopy with polypectomy by cold biopsy forceps [...] file Gender Identity Male 12/05/2017 10:39 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 [facility] Hospitalist Discharge Summary Date of [...] the patient was re cently hospitalized at [facility] from 02/23 to 02/25 for the [...] minutes discharging this patient. Nicolasa Luke DO [place] [address] MEDICAL SURGICAL [address] [facility] [address] Physical Exam Vital Signs: Temp: 98.4 ??F [...] US UPPER EXTREMITY VENOUS DUPLEX RIGHT LOCATION: [facility] DATE: 03/07/2024 INDICATION: Swelling, looking for DVT [...] EXAM: XR CHEST PORT 1 VIEW LOCATION: [facility] DATE: 03/11/2024 INDICATION: Shortness of breath COMPARISON: [...] Refills: 3 Associated Diagnoses: Mixed hyperlipidemia B Nvzuisp-W-Wqpqi Acid (WESCAPS PO) Take 1 capsule by [...] sent through Care Everywhere. * Colon Polyps (Central African) documented in this encounter Medications at Time of Discharge Medication Sig Dispensed Refills Start Date End Date B Scsypas-F-Zpgpy Acid (WESCAPS PO) Take 1 capsule by [...] Date: 03/12/2024 Discharge Disposition: Home Discharge Services: RADIAGRAPH OPERATOR Discharge DME: None Discharge Transportation: agency, other (see comments) ([facility] [place]) Private pay costs discussed: transportation costs Education Provided on the Discharge Plan: yes Persons Notified of Discharge Plans: [facility]unsalv[facility] Renee Patient/Family in Agreement with the Plan: yes Handoff Referral Completed: No Additional Information: Medically ready for discharge home today with mother and Aunt. Contacted [facility]ene[facility] to confirm that transportation needed to be set up. She stated they use [facility] for his dialysis appointments. Called [facility] and they are unable to provide transportation on short notice and they would not have openings today. Discussed with patients Aunt and she is agreeable to having CM set up [facility] transport and is aware of the potential cost if insurance does not cover. Contacted [facility] and transport set up for [phone]. Aunt will be at home to accept and she confirms a ramp in the rear of the home. Lynne Cárdenas BOARD ATTENDANT OCN Tap Out Operator [facility] [phone] * Lynne Cárdenas RN - 03/12/2024 1:41 PM CDT Care Management Discharge Note Discharge Date: 03/12/2024 Discharge Disposition: Home Discharge Services: RADIAGRAPH OPERATOR Discharge DME: None Discharge Transportation: agency, other (see comments) ([facility] out of [place]) Private pay costs discussed: Not applicable Does [...] reach her or aunt who is patients RADIAGRAPH OPERATOR. Left voice mail. Lynne Cárdenas BOARD ATTENDANT OCN Tap Out Operator [facility] [phone] * Melissa Dewey RN - 03/12/2024 12:36 [...] checked every 4 hours. Outpatient Dialysis at [facility]. Patient repositioned every 2 hours during the [...] Interval History: Dialysis run parameters reviewed with cigarette machine filler at patient bedside. Seen on run Resting [...] this interval not displayed. Wojciech Holman MD [facility] Consultants - Nephrology [phone] * Jose Enrique Naylor MD - 03/11/2024 10:24 AM CDT Chart reviewed. Labs and vitals reviewed. Sodium better at 126. Potassium okay. No indication for dialysis today. Noted an episode of vomiting and CONCRETE BLOCK PLANT SUPERVISOR. Chest x-ray appears clear without pulmonary congestion [...] interval not displayed. Jose Enrique Naylor MD [facility] Consultants - Nephrology [phone] * Nicolasa Luke DO - 03/11/2024 9:13 AM CDT [facility] Medicine Progress Note - Hospitalist [...] the patient was re cently hospitalized at [facility] from 02/23 to 02/25 for the [...] 1 unit with hgb this AM 7.8 -CONCRETE BLOCK PLANT SUPERVISOR overnight had episode of emesis, CPAP was [...] of 03/03. Appeared to be asymptomatic - CONCRETE BLOCK PLANT SUPERVISOR called for EGD 03/06 because of hypoglycemia. [...] with Mother and Aunt (who is his RADIAGRAPH OPERATOR) Hx of CVA Legally Blind Hypertension [...] with help/services Nicolasa Luke DO Hospitalist Service [facility] Securely message with [employer] (more info) Text page via [facility] [...] Jacobsen, RN - 03/11/2024 3:23 AM CDT CONCRETE BLOCK PLANT SUPERVISOR called. Patient had received 1 unit of blood earlier in the evening. Had cpap put on for the night. staff midwife and keno writer/runner came into the room and cpap mask was off and patient was on his left side and had vomited. Emesis was yellow in color with some food chunks. Vomit was not evident in the cpap mask. Respiratory was paged and came to see the patient at the bedside. Cross cover was also paged. CONCRETE BLOCK PLANT SUPERVISOR was then called incase patient had aspirated on vomit. Cpap was not placed back on patient after emesis episode. * Portia Domingo RT - 03/11/2024 3:10 AM CDT Attended CONCRETE BLOCK PLANT SUPERVISOR that was called due to pt vomiting. [...] - 03/11/2024 3:07 AM CDT Responded to CONCRETE BLOCK PLANT SUPERVISOR called for an episode of emesis. Patient [...] Romero DO - 03/10/2024 10:27 AM CDT [facility] Hospitalist Progress Note Name: Herminio [...] note, the patient was recently hospitalized at [facility] from 02/23 to 02/25 for the [...] for recheck this evening. Updated mother Arianna Flynn/RADIAGRAPH OPERATOR Thelma via phone. All questions answered. [...] of 03/03. Appeared to be asymptomatic - CONCRETE BLOCK PLANT SUPERVISOR called for EGD 03/06 because of hypoglycemia. [...] with Mother and Aunt (who is his RADIAGRAPH OPERATOR) Hx of CVA Legally Blind Hypertension [...] the past 24 hour(s)). Aashish Romero DO [facility] Hospitalist [address] [facility] [place] [address] Securely message with Chideo (more info) Text page via [employer] Paging/Directory 03/10/2024 * Portia Domingo RT - [...] given low sodium Jose Enrique Naylor MD [facility] Consultants - Nephrology [phone] Interval History : Seen / examined on [...] reviewing documentation/test results, and special order jeweler. Discussed with Dr. Earl. Will no longer follow. Please call with questions or change in condition. Ebony Cheek PA-C [facility] ( [facility]) * Cintia Valadez RN - 03/09/2024 [...] to treatment See Adult Hemodialysis flowsheet in [employer] for further details and post assessment. Machine [...] Cheek MD - 03/09/2024 8:28 AM CDT [facility] Medicine Progress Note - Hospitalist Service Date [...] the patient was re cently hospitalized at [facility] from 02/23 to 02/25 for the [...] of 03/03. Appeared to be asymptomatic - CONCRETE BLOCK PLANT SUPERVISOR called for EGD 03/06 because of hypoglycemia. [...] with Mother and Aunt (who is his RADIAGRAPH OPERATOR) Hx of CVA Legally Blind Hypertension [...] 2-4 Days Antonino Cheek MD Hospitalist Service [facility] Securely message with Chideo (more info) Text page via [facility] [...] interval not displayed. Jose Enrique Naylor MD [facility] Consultants - Nephrology [phone] * Antonino Cheek MD - 03/08/2024 8:22 AM CDT [facility] Medicine Progress Note - Hospitalist Service Date [...] the patient was re cently hospitalized at [facility] from 02/23 to 02/25 for the [...] of 03/03. Appeared to be asymptomatic - CONCRETE BLOCK PLANT SUPERVISOR called for EGD 03/06 because of hypoglycemia. [...] with Mother and Aunt (who is his RADIAGRAPH OPERATOR) Hx of CVA Legally Blind Hypertension [...] 2-4 Days Antonino Cheek MD Hospitalist Service [facility] Securely message with Chideo (more info) Text page via [facility] [...] Pulse: 81 Resp: 18 SpO2: 91 % [id number]: Nasal cannula Oxygen Delivery: 2 LPM Weight: [...] US UPPER EXTREMITY VENOUS DUPLEX RIGHT LOCATION: [facility] DATE: 03/07/2024 INDICATION: Swelling, looking for DVT [...] checked every 4 hours. Outpatient Dialysis at [facility] Patient repositioned every 2 hours during the treatment. Pre & Post treatment report called to Anusha Lindsey RN Please note: Please remove patient dressing on AVF and AVG needle sites 24 hours after dialysis. Ifleaking occurs please apply a Band-Aid. Melissa Newton RN * Antonino Cheek MD - 03/07/2024 4:12 PM CDT [facility] Medicine Progress Note - Hospitalist [...] the patient was re cently hospitalized at [facility] from 02/23 to 02/25 for the [...] of 03/03. Appeared to be asymptomatic - CONCRETE BLOCK PLANT SUPERVISOR called for EGD 03/06 because of hypoglycemia. [...] with Mother and Aunt (who is his RADIAGRAPH OPERATOR) Hx of CVA Legally Blind Hypertension [...] 2-4 Days Antonino Cheek MD Hospitalist Service [facility] Securely message with [employer] (more info) Text page via [facility] [...] given low sodium Jose Enrique Naylor MD [facility] Consultants - Nephrology [phone] Interval History : Seen / examined. No [...] and thrill Labs: All labs reviewed by tx Electrolytes/Renal - Recent Labs Lab Test 03/07/24 [...] reviewing documentation/test results, and special order jeweler. Discussed with Dr. Janette Cheek PA-C [facility] ( [facility]) * Byron Camarillo RN - 03/07/2024 [...] diet. Patient is due for dialysis tomorrow. [facility] unable to complete colonoscopy today due to lack of preparation. I will discuss with them the convenience to wait 1 more day before colonoscopy. * Megan Salazar - 03/06/2024 4:20 PM CDT [facility] Progress Note MS 5 Responded to patient's room regarding overhead Adult Rapid Response CODE. Patient receiving cares. No family present. SHS not needed. SHS remains available. Rev. Megan Salazar, LadanDiv. Staff Photographic Engineer * Janine Irvin RN - 03/06/2024 3:35 [...] use as able. Jose Enrique Naylor MD [facility] Consult[facility] - Nephrology [phone] * Antonino Cheek MD - 03/06/2024 7:30 AM CDT [facility] Medicine Progress Note - Hospitalist [...] the patient was re cently hospitalized at [facility] from 02/23 to 02/25 for the [...] with Mother and Aunt (who is his RADIAGRAPH OPERATOR) Hx of CVA Legally Blind Hypertension [...] 2-4 Days Antonino Cheek MD Hospitalist Service [facility] Securely message with [employer] (more info) Text page via [facility] Paging/Directory Interval History Patient denies symptoms [...] Pulse: 89 Resp: 18 SpO2: 98 % [id number]: BiPAP/CPAP Weight: 185 lbs 13.56 oz GEN: [...] Paged to Dr. Cheek. Paul Rasmussen MD [facility]ive Health * Jose Enrique Naylor [...] Enrique Naylor MD [facility] Consultants - Nephrology [phone] Interval History : Seen / examined. Appears [...] and thrill Labs: All labs reviewed by tx Electrolytes/Renal - Recent Labs Lab Test 03/05/24 [...] Cheek MD - 03/05/2024 8:33 AM CDT [facility] Medicine Progress Note - Hospitalist Service Date [...] the patient was re cently hospitalized at [facility] from 02/23 to 02/25 for the [...] with Mother and Aunt (who is his RADIAGRAPH OPERATOR) Hx of CVA Legally Blind Hypertension [...] 2-4 Days Antonino Cheek MD Hospitalist Service [facility] Securely message with [employer] (more info) Text page via [facility] Paging/Directory Interval History Patient is not [...] Recheck INR tomorrow AM. Paul Rasmussen MD [facility] - Dig[facility]ive Health [phone] SUBJECTIVE: Denies pain or new symptoms OBJECTIVE: [...] and discussions with pt/family/team members. * Aashish Romreo DO - 03/04/2024 10:01 AM CDT [facility] Hospitalist Progress Note Name: Herminio Victor Provider: [...] note, the patient was recently hospitalized at [facility] from 02/23 to 02/25 for the [...] improves with food today. Updated Aunt and RADIAGRAPH OPERATOR Thelma via phone. All questions answered. [...] with Mother and Aunt (who is his RADIAGRAPH OPERATOR) Hx of CVA Legally Blind Hypertension [...] the past 24 hour(s)). Aashish Romero DO [facility] Hospitalist [address] [facility] [place] [address] Securely message with [employer] (more info) Text page via [facility] [...] Aashish Avina, - 03/03/2024 12:46 PM CDT [facility] Hospitalist Progress Note Name: Herminio Victor Provider: [...] note, the patient was recently hospitalized at [facility] from 02/23 to 02/25 for the [...] with Mother and Aunt (who is his RADIAGRAPH OPERATOR) Hx of CVA Legally Blind Hypertension [...] the past 24 hour(s)). Aashish Romero DO [facility] Hospitalist [place] [address] Securely message with [employer] (more info) Text page via [facility] Paging/Directory 03/03/2024 * Bella Argueta RN - 03/03/2024 10:46 AM CDT DATE/TIME OF CALL RECEIVED FROM LAB: 03/03/24 at 10:47 AM LAB TEST: blood glucose LAB VALUE: 56 PROVIDER NOTIFIED?: Yes PROVIDER NAME: Dr. Delfin Romero DATE/TIME LAB VALUE REPORTED TO PROVIDER: 1030 MECHANISM OF PROVIDER NOTIFICATION: Nzld-Kr-Ncph PROVIDER RESPONSE: Administer IV Dextrose and recheck blood glucose in 15 minutes ++++++++++++++++++++++++++++++++++++ DATE/TIME OF CALL RECEIVED FROM LAB: 03/03/24 at 11:15 am LAB TEST: Blood glucose LAB VALUE: 39 PROVIDER NOTIFIED?: Yes PROVIDER NAME: Delfin Romero DATE/TIME LAB VALUE REPORTED TO PROVIDER: 03/03/24 at 11:18 am MECHANISM OF PROVIDER NOTIFICATION: [id number]-Kw-Afef PROVIDER RESPONSE: Additional IV dose of Dextrose [...] Tripathi MD - 03/02/2024 4:41 PM CDT [facility] History and Physical - Hospitalist Service Date [...] has memory issues and onto his primary RADIAGRAPH OPERATOR. Per aunt, patient always had cognitive [...] 2-4 Days Ron Tripathi MD Hospitalist Service [facility] Securely message with [employer] (more info) Text page via [facility] [...] ESRD (end stage renal disease) (H) dialysis T--[facility] History of staph septicemia [...] Dose Informant Patient Reported? Taking? BISACODYL PO Block Setter Gypsum Yes No Sig: Take 10 mg by [...] in this encounter Procedure Notes * Patricio Bcoanegra RN - 03/07/2024 1:36 PM CDTAssociated Order(s): Single Lumen Midline Placement [facility] Single Lumen Midline Placement Date/Time: [...] the procedure a time out was called [place] Protocol: the Joint Commission [place] Protocol was followed Preparation: Patient was prepped [...] type: non-valved Catheter size: 4 Fr Brand: [employer] Lot number: [id number] Placement method: venipuncture, MST and ultrasound Number [...] Lopez RDN, LD Clinical Dietitian 3rd floor/ICU: [phone] All other floors: [phone] Weekend/holiday: [phone] Office: [phone] * Job Her MD - 03/04/2024 12:38 [...] file Other Topics Concern Parent/sibling w/ CABG, CT or angioplasty before 65F 55M? Not Asked Social History Narrative Not on file Social Determinants of Health Financial Resource Strain: Low Risk (06/23/2022) Received from [employer] [facility] Financial Resource Strain Difficulty of Paying Living Expenses: 3 Difficulty of Paying Living Expenses: Not on file Food Insecurity: No Food Insecurity (06/23/2022) Received from [employer] [facility] Food Insecurity Worried About Running Out of Food in the Last Year: 1 Transportation Needs: No Transportation Needs (06/23/2022) Received from [employer] [facility] Transportation Needs Lack of Transportation (Medical): 1 Physical Activity: Not on file Stress: Not on file Social Connections: Unknown (06/24/2023) Received from [employer] [facility] Social Connections Frequency of Communication with Friends and Family: Not on file Interpersonal Safety: Not on file Housing Stability: Low Risk (06/23/2022) Received from [employer] [facility] Housing Stability Unable to Pay for Housing [...] hold heparin with HD [facility] Office Pager: [phone] * Paul Rasmussen MD - 03/03/2024 3:58 PM CDTAssociated Order(s): GASTROENTEROLOGY IP CONSULT Images from the original note were not included. GASTROENTEROLOGY CONSULTATION Herminio Victor [address] [place] [id number] 58 year old male Admission Date/Time: 03/02/2024 [...] restart based on course. Paul Rasmussen MD [facility] - Digestive Health [phone] HPI: Herminio Victor is a 58 year [...] evening 12/19/17 Yes Estrella Guillen MD B Sukhwoz-C-Trbja Acid (WESCAPS PO) Take 1 capsule by [...] Support: Care provided by: other (see comments) (RADIAGRAPH OPERATOR- aunt Thelma) Provides care for: no [...] Insecurity: No Food Insecurity (06/23/2022) [facility] Food Insecurity Worried About Running Out of Food in the Last Year: 1 Depression: Not at risk (05/22/2020) Received from [employer] [facility] PHQ-2 PHQ-2 Score: 0 Housing Stability: Low Risk (06/23/2022) Received from [employer] [facility] Housing Stability Unable to Pay for Housing in the Last Year: 1 Tobacco Use: Low Risk (02/25/2024) Patient History Smoking Tobacco Use: Never Smokeless Tobacco Use: Never Passive Exposure: Not on file Financial Resource Strain: Low Risk (06/23/2022) Received from [employer] [facility] Financial Resource Strain Difficulty of Paying Living Expenses: 3 Difficulty of Paying Living Expenses: Not on file Alcohol Use: Not on file Transportation Needs: No Transportation Needs (06/23/2022) Received from [facility] Transportation Needs Lack of Transportation (Medical): 1 Physical Activity: Not on file Interpersonal Safety: Not on file Stress: Not on file Social Connections: Unknown (06/24/2023) Received from [facility] Social Connections Frequency of Communication with [...] mother and aunt. His aunt is his RADIAGRAPH OPERATOR and has 40 hours per week.He receives assistance with all ADL's and IADL's except eating. He is legally blind so he needs assistance with ambulating, positioning and transfers too. He ambulates without any assistive devices.He receives Dialysis on MWF at [facility] in [place] per his aunt report.His transportation company [employer] in [place]. Their Phone number is [phone] and they are open M-F , 7 AM to 5 pm. CM will monitor for any discharge needs. Laura Bird RN, BSN, CM Inpatient Care Coordination [facility] [phone] documented in this encounter ED Notes * Albina Sneed RN - 03/02/2024 5:43 PM CDT [facility] ED Nurse Handoff Report ED Chief complaint: Generalized Weakness . ED Diagnosis: Final diagnoses: Anemia, unspecified type Black stool Allergies: Allergies Allergen Reactions Dihydroxyaluminum Aminoacetate Nausea GI bleeding Aspirin GI Disturbance and Rash PN: LW Reaction: unknown Code Status: Full Code Activity level - Baseline/Home: lift. Activity Level - Current: bed Lift room needed: No. Bariatric: No Lead Loader Needed: No Isolation: No. Infection: Not Applicable. [...] Component Type Red Blood Cells Product Code U0759A43 Unit Status Transfused Unit Number [id number] [employer]OS[employer]ATCH Compatible CODING SYSTEM [id number] ISSUE DATE AND TIME [id number] UNIT ABO/RH O+ UNIT TYPE ISBT 5100 PREPARE RED BLOOD CELLS (UNIT) Blood Component Type Red Blood Cells Product Code T9547Y24 Unit Status Ready for issue Unit Number [id number] CROSSMATCH Compatible CODING SYSTEM [id number] PREPARE RED BLOOD CELLS (UNIT) TRANSFUSE RED [...] time: 1:38 PM Means of arrival: Comments: [facility] * Raúl [place] MD - 03/02/2024 [...] Component Type Red Blood Cells Product Code Q1330T09 Unit Status Ready for issue Unit Number [id number] CROSSMATCH Compatible CODING SYSTEM [id number] PREPARE RED BLOOD CELLS (UNIT) Blood Component Type Red Blood Cells Product Code Z2223H01 Unit Status Ready for issue Unit Number [id number] CROSSMATCH Compatible CODING SYSTEM [id number] PREPARE RED BLOOD CELLS (UNIT) ABO/RH TYPE AND SCREEN EKG ECG taken at 1400, ECG read at 1403 Sinus rhythm with 1st degree AV block Inferior infarct, age undetermined No significant change when compared to prior, dated 02/24/24. Rate 82 bpm. NE interval 210 ms. QRS duration 88 ms. [...] regarding admission. Medical Decision Making / Diagnosis [facility] Diagnoses: None MIPS None MDM Herminio [...] LAVINIA ENRIQUEZ, am serving as a scribe technical trainer at 2:09 PM on 03/02/2024 to [...] pt. * Pharmacy-Anticoagulation Service - Ryann Armando [facility] - 03/12/2024 2:15 PM CDT Images from the original note were not included. 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 INR Goal= 2-3. Warfarin 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ED Regimen: 5mg M-F Anticoagulation Dose History More [...] 6:47 AM CDT Assumed care Assumed care [phone]. A&Ox3, disoriented to time and can be [...] Treatment Plan: Q12 Hgb checks. Monitor BG, [facility] dialysis Bedside Nurse: Raul Carter RN [...] shift note. Outcome: Progressing Flowsheets (Taken 03/11/2024 6197) Outcome Evaluation: Bp controlled w/ scheduled meds. [...] Documentation Taken 03/11/2024 0836 by Raul Carter family and marriage counsellor Review/Management: medications reviewed Goal: Blood Pressure in Desired Range Outcome: Progressing Intervention: Maintain Blood Pressure Management Recent Flowsheet Documentation Taken 03/11/2024 0836 by Raul Carter RN Medication Review/Management: medications reviewed * Plan of Care - Harriett Jacobsen RN - 03/11/2024 5:48 AM CDT Assumed care [phone]. A&Ox4, but can be confused intermittently. On RA and cpap at night. On a renal diet and needs help ordering/tray set-up. Has midline to L arm that is saline locked. Got 1 unit of blood. BG checks: 148, 120, 94. CONCRETE BLOCK PLANT SUPERVISOR called overnight, see progress notes from keno writer/runner, , and respiratory. Denies pain. Plan of [...] Flowsheet Documentation Taken 03/10/20242319 by Harriett Jacobsen family and marriage counsellor Review/Management: medications reviewed Problem: Adult Inpatient Plan [...] Date/Time: 03/11/2024 0241 Mechanism of Provider Notification: Chideo messaging Purpose of Notification: FYI- Patient got [...] 2-3 Warfarin Prior to Admission: Yes Warfarin 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ED Regimen: 5mg M-F Dose Comments: 5mg today [...] shift note. Outcome: Progressing Flowsheets (Taken 03/09/2024 8307) Outcome Evaluation: Hgb 7.6 with recheck Goal: [...] Flowsheet Documentation Taken 03/08/20241823 by Diego Osei computer systems software architect Interventions: declines Goal: Readiness for Transition of [...] shift note. Outcome: Progressing Flowsheets (Taken 03/08/2024 0685) Outcome Evaluation: 1 unit of blood given. [...] 667 mg Oral With Snacks or Supplements Eilene Earl MD calcium carbonate (TUMS) chewable tablet [...] 30 tablet 3 03/01/2024 at PM B Kdpdbqi-P-Nbyit Acid (WESCAPS PO) Take 1 capsule by [...] and complete assessments, please see documentation flowsheets. [id number] Pertinent assessments:Pt disoriented to time & situation [...] of 36 at upon arrival from PACU, CONCRETE BLOCK PLANT SUPERVISOR called. PRN D50% 50ml given via IV. [...] and complete assessments, please see documentation flowsheets. [phone] Pertinent assessments:Pt disoriented to time. CPAP in [...] on your shift note. 03/06/2024616 by Byron Cmaarillo RN Outcome: Progressing Flowsheets (Taken 03/06/2024616) Outcome [...] Camarillo RN Outcome: Progressing 03/06/2024 06 by Byorn Camarillo RN Outcome: Progressing Goal: Hemostasis 03/06/2024616 [...] and complete assessments, please see documentation flowsheets. [phone] Pertinent assessments: Pt disoriented to time. CPAP [...] shift note. Outcome: Progressing Flowsheets (Taken 03/05/2024 0574) Outcome Evaluation: Denies pain, Cpap in place [...] shift note. 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: Added: Senna Deleted: Bisacodyl, Lisinopril (Thelma states she was told to stop giving this last week) Changed: None Allergies reviewed with patient and updates made in EHR: no Medication History Completed By: Quang Gee RPH 03/02/2024 5:32 PM 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[employer] Med List Medication Sig Last Dose amLODIPine (NORVASC) 5 MG tablet Take 5 mg by mouth daily 03/02/2024 at AM atorvastatin (LIPITOR) 20 MG tablet Take 1 tablet (20 mg) by mouth every evening 03/01/2024 at PM B Eorxqsk-Z-Xaagt Acid (WESCAPS PO) Take 1 capsule by [...] Description 07/05/2024 1:15 PM CDT Office Visit [address] [address] Lizandro Barron MD [address] [id number] documented as of this encounter Procedures Procedure [...] Glucose by meter (03/12/2024 12:00 PM CDT) [facility] GLUCOSE BY METER POCT 92 70 - 99 mg/dL 03/12/2024 12:10 PM CDT LABORATORY POC Blood, Capillary BLOOD SPECIMEN / Unknown 03/12/2024 12:00 PM CDT 03/12/2024 12:10 PM CDT Ron HERNANDEZ POCT LABORATORY [facility] Lab [address] [facility] Lab (1st floor, no room number) [place] [address], [facility] * Glucose by meter (03/12/2024 7:51 AM CDT) GLUCOSE BY METER POCT 92 70 - 99 mg/dL 03/12/2024 7:58 AM CDT RH LABORATORY POC Blood, Capillary BLOOD SPECIMEN / Unknown 03/12/2024 7:51 AM CDT 03/12/2024 7:58 AM CDT Ron Tripathi MD LAB - BEAKER POCT LABORATORY [facility] Lab [address] Lab (1st floor, no room number) [place] [address], [facility] * Glucose (03/12/2024 6:06 AM CDT) Glucose 77 70 - 99 mg/dL 03/12/2024 6:35 AM CDT RH LABORATORY Blood STRUCTURE OF RIGHT UPPER LIMB / Unknown Venipuncture / Unknown 03/12/2024 6:06 AM CDT 03/12/2024 6:10 AM CDT Ron Tripathi MD LAB - BLOOD ORDERABL ES Performing Organization Address [facility]/ZIP Co de Phone Number [facility] Lab [address] Lab (1st floor, no room number) [place] [address] * (ABNORMAL) Hemoglobin (03/12/2024 6:06 AM CDT) Hemoglobin 8.1(L) 13.3 - 17.7 g/dL 03/12/2024 6:14 AM CDT RH LABORATORY Blood STRUCTURE OF RIGHT UPPER LIMB / Unknown Venipuncture / Unknown 03/12/2024 6:06 AM CDT 03/12/2024 6:10 AM CDT Aashish Romero DO LAB - BLOOD ORDER ANDIA [facility] Lab [address] Lab (1st floor, no room number) [place] [address], [facility] * (ABNORMAL) Renal panel (03/12/2024 6:06 AM [...] - BLOOD ORDERA BLES Performing Organization Address City/[facility]/ZIP Co de Phone Number [facility] Care Lab [address] Lab (1st floor, no room number) [place] [phone] * (ABNORMAL) INR (03/12/2024 6:06 AM CDT) INR 1.20(H) 0.85 - 1.15 03/12/2024 6:25 AM CDT RH LABORATORY Blood STRUCTURE OF RIGHT UPPER LIMB / Unknown Venipuncture / Unknown 03/12/2024 6:06 AM CDT 03/12/2024 6:10 AM CDT Eileen Earl MD LAB - BLOOD KIMA EMMA Performing Organization Address [facility]/ZIP Co de Phone Number [facility] Lab [address] Lab (1st floor, no room number) [place] [phone] * (ABNORMAL) Glucose by meter (03/12/2024 1:55 AM CDT) GLUCOSE BY METER POCT 107(H) 70 - 99 mg/dL 03/12/2024 2:01 AM CDT LABORATORY POC Blood, Capillary BLOOD SPECIMEN / Unknown 03/12/2024 1:55 AM CDT 03/12/2024 2:01 AM CDT Ron Tripathi MD LAB - BEAKER POCT Performing Organization Address City/[facility]/ZIP Co de Phone Number LABORATORY [facility] Lab [address] Lab (1st floor, no room number) [place] [phone] * (ABNORMAL) Glucose by meter (03/11/2024 9:11 PM CDT) GLUCOSE BY METER POCT 132(H) 70 - 99 mg/dL 03/11/2024 9:18 PM CDT RH LABORATORY POC Blood, Capillary BLOOD SPECIMEN / Unknown 03/11/2024 9:11 PM CDT 03/11/2024 9:18 PM CDT Ron DEAN - DAVID POCT LABORATORY [facility] Lab [address] Lab (1st floor, no room number) [place] [address], [facility] * (ABNORMAL) Hemoglobin (03/11/2024 6:10 PM CDT) Hemoglobin 8.8(L) 13.3 - 17.7 g/dL 03/11/2024 6:22 PM CDT RH LABORATORY Blood STRUCTURE OF RIGHT UPPER LIMB / Unknown Venipuncture / Unknown 03/11/2024 6:10 PM CDT 03/11/2024 6:20 PM CDT Aashish Romero DO LAB - BLOOD ORDER NADIA Performing Organization Address City/[facility]/ZIP Co de Phone Number [facility] Lab [address] Lab (1st floor, no room number) [place] [address], [facility] * (ABNORMAL) Glucose by meter (03/11/2024 5:31 PM CDT) GLUCOSE BY METER POCT 144(H) 70 - 99 mg/dL 03/11/2024 5:39 PM CDT LABORATORY POC Blood, Capillary BLOOD SPECIMEN / Unknown 03/11/2024 5:31 PM CDT 03/11/2024 5:39 PM CDT Ron HERNANDEZ POCT LABORATORY [facility] Lab [address] Lab (1st floor, no room number) [place] [address], [facility] * (ABNORMAL) Glucose by meter (03/11/2024 11:47 AM CDT) GLUCOSE BY METER POCT 117(H) 70 - 99 mg/dL 03/11/2024 11:54 AM CDT RH LABORATORY POC Blood, Capillary BLOOD SPECIMEN / Unknown 03/11/2024 11:47 AM CDT 03/11/2024 11:54 AM CDT Narrative Authorizing Provider Result Lauren DEAN - BEAKER POCT Performing Organization Address City/[facility]/ZIP Co de Phone Number LABORATORY [facility] Lab [address] Lab (1st floor, no room number) [place] [address] * Glucose by meter (03/11/2024 7:36 AM CDT) GLUCOSE BY METER POCT 81 70 - 99 mg/dL 03/11/2024 7:45 AM CDT LABORATORY POC Blood, Capillary BLOOD SPECIMEN / Unknown 03/11/2024 7:36 AM CDT 03/11/2024 7:45 AM CDT Ron DEAN - DAVID POCT Performing Organization Address [facility] Co de Phone Number LABORATORY [facility] Lab [address] Lab (1st floor, no room number) [place] [phone] [place] [address] * (ABNORMAL) Renal panel (03/11/2024 7:03 AM [...] Earl MD LAB - BLOOD ORDERA BLES [facility] Lab [address] Lab (1st floor, no room number) [place] [address] * INR (03/11/2024 7:03 AM CDT) INR 1.11 0.85 - 1.15 03/11/2024 7:31 AM CDT RH LABORATORY Blood STRUCTURE OF RIGHT UPPER LIMB / Unknown Venipuncture / Unknown 03/11/2024 7:03 AM CDT 03/11/2024 7:10 AM CDT Eileen Earl MD LAB - BLOOD ORDERA BLES [facility] Lab [address] Lab (1st floor, no room number) [place] [address], [facility] * (ABNORMAL) CBC with platelets (03/11/2024 7:03 AM CDT) [facility] Signature WBC Count 9.9 4.0 - [...] LAB - BLOOD ORDER NADIA RH LABORATORY [facility] Acute Care Lab [address] Lab (1st floor, no room number) [place] [address], [facility] * XR Chest Port 1 View (03/11/2024 3:25 AM CDT) Anatomical Region Laterality Modality Chest Digital Radiogra phy 03/11/2024 3:25 AM CDT Impressions 03/11/2024 3:30 AM CDT IMPRESSION: Normal heart size and pulmonary vascularity. Lungs clear. No pneumothorax. Minimal fluid or thickening along the right fissure. Narrative 03/11/2024 3:30 AM CDT EXAM: XR CHEST PORT 1 VIEW LOCATION: [facility] DATE: 03/11/2024 INDICATION: Shortness of breath COMPARISON: None. Procedure Note David Díaz MD - 03/11/2024 EXAM: XR CHEST PORT 1 VIEW LOCATION: [facility] DATE: 03/11/2024 INDICATION: Shortness of breath COMPARISON: [...] CDT Ron DEAN - DAVID POCT LABORATORY [facility] Lab [address] Lab (1st floor, no room number) [place] [address] * (ABNORMAL) Glucose by meter (03/11/2024 1:57 AM CDT) GLUCOSE BY METER POCT 120(H) 70 - 99 mg/dL 03/11/2024 2:04 AM CDT LABORATORY POC Blood, Capillary BLOOD SPECIMEN / Unknown 03/11/2024 1:57 AM CDT 03/11/2024 2:04 AM CDT Ron DEAN - BEAKER POCT LABORATORY [facility] Lab [address] Lab (1st floor, no room number) [place] [address] * CONDITIONAL Transfuse red blood cells [...] LAB - BEAKER POCT RH LABORATORY POC [facility] [address] (1[facility] floor, no room number) [place] [address] * Adult Type and Screen (03/10/2024 6:53 PM CDT) ABO/RH(D) O POS 03/10/2024 6:44 PM CDT RH BLOOD BANK Antibody Screen Negative Negative 03/10/2024 6:44 PM CDT RH BLOOD BANK SPECIMEN EXPIRATION DATE [id number] 03/10/2024 6:44 PM CDT RH BLOOD BANK Blood STRUCTURE OF RIGHT UPPER LIMB / Unknown Venipuncture / Unknown 03/10/2024 6:53 PM CDT 03/10/2024 6:57 PM CDT Antonino Cheek MD LAB - BLOOD BANK SHANNON T ORDER RH BLOOD BANK [address] [place] [address] * CONDITIONAL Prepare red blood cells (unit) (03/10/2024 6:37 PM CDT) Blood Component Type Red Blood Cells RH BLOOD BANK Product Code [id number] RH BLOO D BANK Unit Status Transfused RH BLOO D BANK Unit Number [id number] RH B LOOD BANK CROSSMATCH Compatible RH BLOOD BANK CODING SYSTEM [id number] RH BLO OD BANK ISSUE DATE AND TIME [id number] RH BLOOD BANK UNIT ABO/RH O+ RH BLOOD BANK UNIT TYPE ISBT 5100 RH BL OOD BANK 03/10/2024 6:37 PM CDT Eileen Earl MD BLOOD BANK PRODUCT ORDERABLES RH BLOOD BANK [address] [place] [phone], [facility] * (ABNORMAL) Hemoglobin (03/10/2024 6:00 PM CDT) Hemoglobin 7.0(L) 13.3 - 17.7 g/dL 03/10/2024 6:09 PM CDT RH LABORATORY Blood STRUCTURE OF RIGHT UPPER LIMB / Unknown Venipuncture / Unknown 03/10/2024 6:00 PM CDT 03/10/2024 6:07 PM CDT Aashish Romero DO LAB - BLOOD ORDER NADIA Performing Organization Address City/[facility]/ZIP Co de Phone Number LABORATORY [facility] Lab [address] Lab (1st floor, no room number) [place] [phone], [facility] * (ABNORMAL) Glucose by meter (03/10/2024 4:49 PM CDT) GLUCOSE BY METER POCT 208(H) 70 - 99 mg/dL 03/10/2024 5:05 PM CDT RH LABORATORY POC Blood, Capillary BLOOD SPECIMEN / Unknown 03/10/2024 4:49 PM CDT 03/10/2024 5:05 PM CDT Ron Tripathi MD LAB - BEAKER POCT LABORATORY POC [facility] Lab [address] Lab (1st floor, no room number) [place] [address], [facility] * Glucose by meter (03/10/2024 2:35 PM CDT) GLUCOSE BY METER POCT 98 70 - 99 mg/dL 03/10/2024 2:43 PM CDT RH LABORATORY POC Blood, Capillary BLOOD SPECIMEN / Unknown 03/10/2024 2:35 PM CDT 03/10/2024 2:43 PM CDT Ron Tripathi MD LAB - BEAKER POCT LABORATORY [facility] Lab [address] Lab (1st floor, no room number) [place] [address], [facility] * Glucose by meter (03/10/2024 1:28 PM CDT) GLUCOSE BY METER POCT 94 70 - 99 mg/dL 03/10/2024 1:37 PM CDT RH LABORATORY POC Blood, Capillary BLOOD SPECIMEN / Unknown 03/10/2024 1:28 PM CDT 03/10/2024 1:37 PM CDT Ron DEAN - BEXIANG POCT Performing Organization Address City/[facility]/ZIP Co de Phone Number LABORATORY [facility] Lab [address] Lab (1st floor, no room number) [place] [address], [facility] * Glucose by meter (03/10/2024 12:35 PM CDT) GLUCOSE BY METER POCT 92 70 - 99 mg/dL 03/10/2024 12:50 PM CDT LABORATORY POC Blood, Capillary BLOOD SPECIMEN / Unknown 03/10/2024 12:35 PM CDT 03/10/2024 12:50 PM CDT Ron DEAN - BEAKER POCT LABORATORY [facility] [address] Lab (1st floor, no room number) [place] [address], [facility] * (ABNORMAL) Glucose by meter (03/10/2024 11:28 AM CDT) GLUCOSE BY METER POCT 102(H) 70 - 99 mg/dL 03/10/2024 11:35 AM CDT RH LABORATORY POC Blood, Capillary BLOOD SPECIMEN / Unknown 03/10/2024 11:28 AM CDT 03/10/2024 11:35 AM CDT Ron DEAN - BEAKER POCT LABORATORY [facility] [address] Lab (1st floor, no room number) [address] [place] [address] * (ABNORMAL) Glucose by meter (03/10/2024 10:35 AM CDT) GLUCOSE BY METER POCT 133(H) 70 - 99 mg/dL 03/10/2024 10:42 AM CDT LABORATORY POC Blood, Capillary BLOOD SPECIMEN / Unknown 03/10/2024 10:35 AM CDT 03/10/2024 10:42 AM CDT Ron DEAN - DAVID POCT LABORATORY [facility] [address] Lab (1st floor, no room number) [address] [place] [address] * (ABNORMAL) Glucose by meter (03/10/2024 8:32 AM CDT) GLUCOSE BY METER POCT 105(H) 70 - 99 mg/dL 03/10/2024 8:45 AM CDT LABORATORY POC Blood, Capillary BLOOD SPECIMEN / Unknown 03/10/2024 8:32 AM CDT 03/10/2024 8:45 AM CDT Ron DEAN - DAVID POCT LABORATORY [facility] Lab [address] Lab (1st floor, no room number) [place] [address] * (ABNORMAL) Hemoglobin (03/10/2024 7:46 AM CDT) Hemoglobin 7.0(L) 13.3 - 17.7 g/dL 03/10/2024 7:55 AM CDT LABORATORY Blood STRUCTURE OF RIGHT UPPER LIMB / Unknown Venipuncture / Unknown 03/10/2024 7:46 AM CDT 03/10/2024 7:50 AM CDT Ron Tripathi MD LAB - BLOOD ORDERABL ES LABORATORY [facility] Lab [address] Lab (1st floor, no room number) [place] [address] * (ABNORMAL) Renal panel (03/10/2024 [...] Earl MD LAB - BLOOD ORDERA BLES [facility] Lab [address] Lab (1st floor, no room number) [address] * (ABNORMAL) INR (03/10/2024 7:46 AM CDT) INR 1.18(H) 0.85 - 1.15 03/10/2024 8:03 AM CDT LABORATORY Blood STRUCTURE OF RIGHT UPPER LIMB / Unknown Venipuncture / Unknown 03/10/2024 7:46 AM CDT 03/10/2024 7:50 AM CDT Eileen Earl MD LAB - BLOOD ORDERA BLES [facility] [address] Lab (1st floor, no room number) [address] * (ABNORMAL) Glucose by meter (03/10/2024 3:38 AM CDT) GLUCOSE BY METER POCT 112(H) 70 - 99 mg/dL 03/10/2024 3:44 AM CDT LABORATORY POC Blood, Capillary BLOOD SPECIMEN / Unknown 03/10/2024 3:38 AM CDT 03/10/2024 3:44 AM CDT Narrative Authorizing Provider Result Lauren DEAN - BEAKER POCT Performing Organization Address [facility]/State/ZIP Co de Phone Number LABORATORY [facility] Lab [address] Lab (1st floor, no room number) [place] [address] * Glucose by meter (03/10/2024 12:05 AM CDT) GLUCOSE BY METER POCT 97 70 - 99 mg/dL 03/10/2024 12:11 AM CDT LABORATORY POC Blood, Capillary BLOOD SPECIMEN / Unknown 03/10/2024 12:05 AM CDT 03/10/2024 12:11 AM CDT Narrative Authorizing Provider Result Lauren DEAN - BEAKER POCT Performing Organization Address [facility]/ZIP Co de Phone Number LABORATORY [facility] Lab [address] Lab (1st floor, no room number) [place] [address], [facility] * (ABNORMAL) Hemoglobin (03/09/2024 11:50 PM CDT) Hemoglobin 7.5(L) 13.3 - 17.7 g/dL 03/09/2024 11:57 PM CDT LABORATORY Blood STRUCTURE OF RIGHT HAND / Unknown Venipuncture / Unknown 03/09/2024 11:50 PM CDT 03/09/2024 11:53 PM CDT Narrative Authorizing Provider Result Lauren Tripathi MD LAB - BLOOD ORDERABL ES Performing Organization Address [facility]/ZIP Co de Phone Number [facility] Lab [address] Lab (1st floor, no room number) [place] [phone], [facility] * (ABNORMAL) Glucose by meter (03/09/2024 8:25 PM CDT) GLUCOSE BY METER POCT 159(H) 70 - 99 mg/dL 03/09/2024 8:32 PM CDT RH LABORATORY POC Blood, Capillary BLOOD SPECIMEN / Unknown 03/09/2024 8:25 PM CDT 03/09/2024 8:32 PM CDT Narrative Authorizing Provider Result Lauren DEAN - BEAKER POCT LABORATORY [facility] [address] Lab (1st floor, no room number) [place] [phone] * (ABNORMAL) Hemoglobin (03/09/2024 7:13 PM CDT) Hemoglobin 7.6(L) 13.3 - 17.7 g/dL 03/09/2024 7:27 PM CDT LABORATORY Blood VENOUS LINE / Unknown Venipuncture / Unknown 03/09/2024 7:13 PM CDT 03/09/2024 7:25 PM CDT Narrative Authorizing Provider Result Lauren Tripathi MD LAB - BLOOD ORDERABL ES [facility] Lab [address] Lab (1st floor, no room number) [place] [address] * (ABNORMAL) Glucose by meter (03/09/2024 4:12 PM CDT) GLUCOSE BY METER POCT 147(H) 70 - 99 mg/dL 03/09/2024 4:19 PM CDT LABORATORY POC Blood, Capillary BLOOD SPECIMEN / Unknown 03/09/2024 4:12 PM CDT 03/09/2024 4:19 PM CDT Narrative Authorizing Provider Result Lauren DEAN - BEAKER POCT LABORATORY [facility] [address] Lab (1st floor, no room number) [place] [address] * (ABNORMAL) Hemoglobin (03/09/2024 2:16 PM CDT) Hemoglobin 7.6(L) 13.3 - 17.7 g/dL 03/09/2024 2:43 PM CDT LABORATORY Blood VASCULAR LINE / Unknown Venipuncture / Unknown 03/09/2024 2:16 PM CDT 03/09/2024 2:29 PM CDT Ron Tripathi MD LAB - BLOOD ORDERABL ES [facility] Lab [address] Lab (1st floor, no room number) [place] [address], [facility] * (ABNORMAL) Glucose by meter (03/09/2024 1:35 PM CDT) GLUCOSE BY METER POCT 150(H) 70 - 99 mg/dL 03/09/2024 1:42 PM CDT LABORATORY POC Blood, Capillary BLOOD SPECIMEN / Unknown 03/09/2024 1:35 PM CDT 03/09/2024 1:42 PM CDT Ron Tripathi MD LAB - BEAKER POCT LABORATORY [facility] [address] Lab (1st floor, no room number) [place] [address], [facility] * Morphology Tracking (03/09/2024 9:12 AM CDT) Blood VENOUS LINE / Unknown Venipuncture / Unknown 03/09/2024 9:12 AM CDT 03/09/2024 9:26 AM CDT Antonino Cheek MD LAB - BLOOD ORDERABL ES [facility] Lab [address] Lab (1st floor, no room number) [place] [address], [facility] * (ABNORMAL) Reticulocyte count (03/09/2024 9:12 AM CDT) % Reticulocyte 2.8(H) 0.5 - 2.0 % 03/09/2024 9:33 AM CDT RH LABORATORY Absolute Reticulocyte 0.072 0.025 - 0.095 10e6/uL 03/09/2024 9:33 AM CDT RH LABORATORY Blood VENOUS LINE / Unknown Venipuncture / Unknown 03/09/2024 9:12 AM CDT 03/09/2024 9:26 AM CDT Antonino Cheek MD LAB - BLOOD ORDERABL ES RH LABORATORY [facility] Lab [address] [facility] Lab (1st floor, no room number) [place] [address] * (ABNORMAL) CBC with platelets and differential (03/09/2024 9:12 AM CDT) Pathologist [facility] WBC Count 10.1 4.0 - 11.0 10e3/uL [...] LAB - BLOOD ORDERABL ES RH LABORATORY [facility] Lab [address] Lab (1st floor, no room number) [place] [address] * Bld morphology pathology review [...] component of this testing was completed at [facility], [facility] and [facility] 03/13/2024 10:17 AM CDT [facility] PATHOLOGY LAB Blood VENOUS LINE [...] Antonino Cheek MD LAB - BEAKER AP [facility] PATHOLOGY LAB [facility] Pathology Lab [address] [place] [address] * Haptoglobin (03/09/2024 9:12 AM CDT) Haptoglobin 127 30 - 200 mg/dL 03/10/2024 1:23 AM CDT [facility] LABORATORY Blood VENOUS LINE / Unknown Venipuncture / Unknown 03/09/2024 9:12 AM CDT 03/09/2024 9:26 AM CDT Antonino Cheek MD LAB - BLOOD ORDERABL ES [facility] LABORATORY [facility] [place] Core Lab [address] [facility], [address] [place] [address] * Bilirubin Direct and Total (03/09/2024 9:12 AM CDT) Bilirubin Direct 0.22 0.00 - 0.30 mg/dL 03/09/2024 9:59 AM CDT RH LABORATORY Bilirubin Total 0.5 <=1.2 mg/dL 03/09/2024 9:59 AM CDT RH LABORATORY Blood VENOUS LINE / Unknown Venipuncture / Unknown 03/09/2024 9:12 AM CDT 03/09/2024 9:26 AM CDT Antonino Cheek MD LAB - BLOOD ORDERABL ES Performing Organization Address City/[facility]/ZIP Co de Phone Number [facility] Lab [address] Lab (1st floor, no room number) [address] * Lactate Dehydrogenase (03/09/2024 9:12 AM CDT) Lactate Dehydrogenase 226 0 - 250 U/L 03/09/2024 9:59 AM CDT LABORATORY Blood VENOUS LINE / Unknown Venipuncture / Unknown 03/09/2024 9:12 AM CDT 03/09/2024 9:26 AM CDT Antonino Cheek MD LAB - BLOOD ORDERABL ES Performing Organization Address [facility]/ZIP Co de Phone Number [facility] Lab [address] Lab (1st floor, no room number) [address] * INR (03/09/2024 9:12 AM CDT) INR 1.13 0.85 - 1.15 03/09/2024 9:41 AM CDT LABORATORY Blood VENOUS LINE / Unknown Venipuncture / Unknown 03/09/2024 9:12 AM CDT 03/09/2024 9:26 AM CDT Eileen Earl MD LAB - BLOOD ORDERA BLES [facility] Lab [address] Lab (1st floor, no room number) [address] * Glucose by meter (03/09/2024 7:55 AM CDT) GLUCOSE BY METER POCT 91 70 - 99 mg/dL 03/09/2024 8:04 AM CDT RH LABORATORY POC Comment:Dr/RN Notified Blood, Capillary BLOOD SPECIMEN / Unknown 03/09/2024 7:55 AM CDT 03/09/2024 8:04 AM CDT [facility]i MD [facility] [address] Lab (1st floor, no room number) [place] [address], [facility] * (ABNORMAL) Renal panel (03/09/2024 5:49 AM [...] MD LAB - BLOOD ORDERA BL[facility] LABORAT[facility] [address] Lab (1st floor, no room number) [place] [id number] * (ABNORMAL) Hemoglobin (03/09/2024 5:49 AM CDT) Hemoglobin 7.5(L) 13.3 - 17.7 g/dL 03/09/2024 6:00 AM CDT LABORATORY Blood VENOUS LINE / Unknown Venipuncture / Unknown 03/09/2024 5:49 AM CDT 03/09/2024 5:57 AM CDT Ron Tripathi MD LAB - BLOOD ORDERABL ES Performing Organization Address [facility]/ZIP Co de Phone Number LABORATORY [facility] [address] Lab (1st floor, no room number) [place] [address] * (ABNORMAL) Glucose by meter (03/09/2024 4:31 AM CDT) GLUCOSE BY METER POCT 112(H) 70 - 99 mg/dL 03/09/2024 4:37 AM CDT LABORATORY POC Blood, Capillary BLOOD SPECIMEN / Unknown 03/09/2024 4:31 AM CDT 03/09/2024 4:37 AM CDT Ron Tripathi MD LAB - BEAKER POCT LABORATORY POC [facility] [address] Lab (1st floor, no room number) [place] [address], [facility] * (ABNORMAL) Glucose by meter (03/09/2024 12:26 AM CDT) GLUCOSE BY METER POCT 124(H) 70 - 99 mg/dL 03/09/2024 12:32 AM CDT RH LABORATORY POC Blood, Capillary BLOOD SPECIMEN / Unknown 03/09/2024 12:26 AM CDT 03/09/2024 12:32 AM CDT Ron Tripathi MD LAB - BEAKER POCT LABORATORY [facility] [address] Lab (1st floor, no room number) [place] [phone] [place] [address] * (ABNORMAL) Hemoglobin (03/08/2024 10:35 PM CDT) Hemoglobin 7.5(L) 13.3 - 17.7 g/dL 03/08/2024 10:48 PM CDT LABORATORY Blood BLOOD SPECIMEN / Unknown Venipuncture / Unknown 03/08/2024 10:35 PM CDT 03/08/2024 10:45 PM CDT Antonino Cheek MD LAB - BLOOD ORDERABL ES Performing Organization Address [facility]/ZIP Co de Phone Number [facility] [address] Lab (1st floor, no room number) [place] [phone], [facility] * (ABNORMAL) Glucose by meter (03/08/2024 10:09 PM CDT) GLUCOSE BY METER POCT 116(H) 70 - 99 mg/dL 03/08/2024 10:15 PM CDT LABORATORY POC Blood, Capillary BLOOD SPECIMEN / Unknown 03/08/2024 10:09 PM CDT 03/08/2024 10:15 PM CDT Ron Tripathi MD LAB - BEAKER POCT LABORATORY [facility] [address] Lab (1st floor, no room number) [place] [phone] [place] [address] * (ABNORMAL) Glucose by meter (03/08/2024 8:11 PM CDT) GLUCOSE BY METER POCT 114(H) 70 - 99 mg/dL 03/08/2024 8:18 PM CDT RH LABORATORY POC Blood, Capillary BLOOD SPECIMEN / Unknown 03/08/2024 8:11 PM CDT 03/08/2024 8:18 PM CDT Narrative Authorizing Provider Result Lauren Tripathi MD LAB - BEAKER POCT LABORATORY [facility] [address] [facility] Lab (1st floor, no room number) [address] * Glucose by meter (03/08/2024 5:59 PM CDT) GLUCOSE BY METER POCT 84 70 - 99 mg/dL 03/08/2024 6:05 PM CDT LABORATORY POC Blood, Capillary BLOOD SPECIMEN / Unknown 03/08/2024 5:59 PM CDT 03/08/2024 6:05 PM CDT Narrative Authorizing Provider Result Lauren DEAN - BEAKER POCT Performing Organization Address City/[facility]/ZIP Co de Phone Number LABORATORY [facility] [address] Lab (1st floor, no room number) [place] [phone] * Glucose by meter (03/08/2024 5:28 PM CDT) GLUCOSE BY METER POCT 99 70 - 99 mg/dL 03/08/2024 5:35 PM CDT LABORATORY POC Blood, Capillary BLOOD SPECIMEN / Unknown 03/08/2024 5:28 PM CDT 03/08/2024 5:35 PM CDT Narrative Authorizing Provider Result Lauren DEAN - BEAKER POCT LABORATORY [facility] [address] Lab (1st floor, no room number) [address] * Glucose by meter (03/08/2024 5:02 PM CDT) GLUCOSE BY METER POCT 79 70 - 99 mg/dL 03/08/2024 5:08 PM CDT RH LABORATORY POC Blood, Capillary BLOOD SPECIMEN / Unknown 03/08/2024 5:02 PM CDT 03/08/2024 5:08 PM CDT Ron Tripathi MD LAB - BEAKER POCT LABORATORY [facility] [address] Lab (1st floor, no room number) [address] * (ABNORMAL) Glucose by meter (03/08/2024 4:36 PM CDT) GLUCOSE BY METER POCT 63(L) 70 - 99 mg/dL 03/08/2024 4:43 PM CDT LABORATORY POC Blood, Capillary BLOOD SPECIMEN / Unknown 03/08/2024 4:36 PM CDT 03/08/2024 4:43 PM CDT Narrative Authorizing Provider Result Lauren DEAN - BEXIANG POCT LABORATORY [facility] [address] Lab (1st floor, no room number) [address] * (ABNORMAL) Glucose by meter (03/08/2024 3:59 PM CDT) GLUCOSE BY METER POCT 68(L) 70 - 99 mg/dL 03/08/2024 4:06 PM CDT LABORATORY POC Blood, Capillary BLOOD SPECIMEN / Unknown 03/08/2024 3:59 PM CDT 03/08/2024 4:06 PM CDT Narrative Authorizing Provider Result Lauren DEAN - BEAKER POCT LABORATORY POC [facility] [address] Lab (1st floor, no room number) [address] [place] [address] * (ABNORMAL) Hemoglobin (03/08/2024 2:42 PM CDT) Hemoglobin 8.1(L) 13.3 - 17.7 g/dL 03/08/2024 3:25 PM CDT RH LABORATORY Blood VASCULAR LINE / Unknown Venipuncture / Unknown 03/08/2024 2:42 PM CDT 03/08/2024 2:58 PM CDT Antonino Cheek MD LAB - BLOOD ORDERABL ES Performing Organization Address City/[facility]/ZIP Co de Phone Number LABORATORY [facility] [address] Lab (1st floor, no room number) [address] [place] [address] * (ABNORMAL) Glucose by meter (03/08/2024 2:16 PM CDT) GLUCOSE BY METER POCT 104(H) 70 - 99 mg/dL 03/08/2024 2:23 PM CDT RH LABORATORY POC Comment:Dr/RN Notified Blood, Capillary BLOOD SPECIMEN / Unknown 03/08/2024 2:16 PM CDT 03/08/2024 2:23 PM CDT Ron DEAN - BEXIANG POCT LABORATORY POC [facility] [address] Lab (1st floor, no room number) [place] [phone] * (ABNORMAL) Glucose by meter (03/08/2024 1:56 PM CDT) GLUCOSE BY METER POCT 52(L) 70 - 99 mg/dL 03/08/2024 2:03 PM CDT RH LABORATORY POC Blood, Capillary BLOOD SPECIMEN / Unknown 03/08/2024 1:56 PM CDT 03/08/2024 2:03 PM CDT Ron DEAN - BEAKER POCT Performing Organization Address [facility] Co de Phone Number LABORATORY [facility] [address] [facility] Lab (1st floor, no room number) [place] [address] * (ABNORMAL) Glucose by meter (03/08/2024 1:36 PM CDT) GLUCOSE BY METER POCT 69(L) 70 - 99 mg/dL 03/08/2024 1:49 PM CDT LABORATORY POC Blood, venous BLOOD SPECIMEN / Unknown 03/08/2024 1:36 PM CDT 03/08/2024 1:49 PM CDT Ron DEAN - DAVID POCT Performing Organization Address [facility] de Phone Number LABORATORY [facility] [address] [facility] Lab (1st floor, no room number) [place] [address] * Surgical Pathology Exam (03/08/2024 1:26 PM CDT) Case Report Surgical Pathology Report ? Case: [id number] ? Authorizing Provider: ??Eileen Earl MD ?Collected: ? 03/08/2024 01:26 PM ? Ordering Location: ? [facility] ?Received: ?03/08/2024 02:01 PM ? [facility] [place] ? Pathologist: ? Jae Cardona MD ? Specimen: ?Rectum, Rectum polyp ? 03/09/2024 10:13 AM [facility] Final Diagnosis Rectum, polypectomy: --Hyperplastic polyp. 03/09/2024 10:13 AM [facility] Clinical Information Procedure: Colonoscopy with polypectomy by cold biopsy forceps Pre-op Diagnosis: Anemia, unspecified type [D64.9] Post-op Diagnosis: D64.9 - Anemia, unspecified type [ICD-10-CM] 03/09/2024 10:13 AM [facility] Gross Description A(1). Rectum, Rectum polyp: The specimen is received in formalin, labeled with the patient's name, medical record number and other identifying information and designated ? rectum polyp? . It consists of 2 english soft tissue fragments ranging from 0.1-0.4 cm. Entirely submitted in one cassette. MARY Gates(ASCP)CM 03/08/2024 2:57 PM 03/09/2024 10:13 AM [facility] Microscopic Description Microscopic examination was performed. 03/09/2024 10:13 AM [facility] Performing Labs The technical component of this testing was completed at [facility]. Stain controls for all stains resulted within this report have been reviewed and show appropriate reactivity. 03/09/2024 10:13 AM [facility] Case Images 03/09/2024 10:13 AM CDT LABORATORY Polyp RECTUM PART / Unknown 03/08/2024 1:26 PM CDT 03/08/2024 2:01 PM CDT Eileen DEAN - DAVID [facility] Organization Address City/State/ZIP Co de Phone Number LABORATORY [facility] [address] Lab (1st floor, no room number) [place] [address] * COLONOSCOPY (03/08/2024 1:04 PM CDT) [facility] Signature COLONOSCOPY [facility] Patient Name: Herminio Victor ? [...] continuously. The ?Olympus Adult Colonoscope, Model # [id number], ?Censitrac # [id number] was introduced through the ?anus and advanced [...] Note Initiated On: 03/08/2024 1:04 PM MRN: ?[id number] Procedure Date: ? 03/08/2024 1:04:50 PM Scope [...] Tripathi MD LAB - BEAKER POCT LABORATORY [facility] [address] Lab (1st floor, no room number) [place] [address] * (ABNORMAL) Glucose by meter (03/08/2024 11:11 AM CDT) GLUCOSE BY METER POCT 65(L) 70 - 99 mg/dL 03/08/2024 11:17 AM CDT LABORATORY POC Blood, Capillary BLOOD SPECIMEN / Unknown 03/08/2024 11:11 AM CDT 03/08/2024 11:17 AM CDT Ron Tripathi MD LAB - BEXIANG POCT Performing Organization Address [facility] Co de Phone Number LABORATORY [facility] [address] Lab (1st floor, no room number) [place] [phone] * CONDITIONAL Transfuse red blood cells [...] Tripathi MD LAB - BEXIANG POCT LABORATORY [facility] [address] [facility] Lab (1st floor, no room number) [place] [address] * CONDITIONAL Prepare red blood cells (unit) (03/08/2024 7:50 AM CDT) Blood Component Type Red Blood Cells RH BLOOD BANK Product Code [id number] RH BLOO D BANK Unit Status Transfused RH BLOO D BANK Unit Number [id number] RH B LOOD BANK CROSSMATCH Compatible RH BLOOD BANK CODING SYSTEM [id number] RH BLO OD BANK ISSUE DATE AND TIME [id number] RH BLOOD BANK UNIT ABO/RH O+ RH BLOOD BANK UNIT TYPE ISBT 5100 RH BL OOD BANK 03/08/2024 7:50 AM CDT Eileen Earl MD BLOOD BANK PRODUCT ORDERABLES RH BLOOD BANK [address] [place] [address] * (ABNORMAL) Renal panel (03/08/2024 [...] Earl MD LAB - BLOOD ORDERA BLES [facility] [address] Lab (1st floor, no room number) [place] [phone] [place] [address] * (ABNORMAL) INR (03/08/2024 6:25 AM CDT) INR 1.18(H) 0.85 - 1.15 03/08/2024 7:03 AM CDT LABORATORY Blood STRUCTURE OF RIGHT UPPER LIMB / Unknown Venipuncture / Unknown 03/08/2024 6:25 AM CDT 03/08/2024 6:39 AM CDT Eileen Earl MD LAB - BLOOD ORDERA BLES [facility] [address] Lab (1st floor, no room number) [place] [address] * (ABNORMAL) Hemoglobin (03/08/2024 6:25 AM CDT) Hemoglobin 6.7(LL) 13.3 - 17.7 g/dL 03/08/2024 7:01 AM CDT LABORATORY Blood STRUCTURE OF RIGHT UPPER LIMB / Unknown Venipuncture / Unknown 03/08/2024 6:25 AM CDT 03/08/2024 6:39 AM CDT Antonino Cheek MD LAB - BLOOD ORDERABL ES [facility] [address] Lab (1st floor, no room number) [place] [address], [facility] * (ABNORMAL) Glucose by meter (03/08/2024 6:00 AM CDT) GLUCOSE BY METER POCT 111(H) 70 - 99 mg/dL 03/08/2024 6:07 AM CDT LABORATORY POC Blood, Capillary BLOOD SPECIMEN / Unknown 03/08/2024 6:00 AM CDT 03/08/2024 6:07 AM CDT Ron DEAN - BEAKER POCT Performing Organization Address City/[facility]/ZIP Co de Phone Number LABORATORY [facility] [address] Lab (1st floor, no room number) [place] [address], [facility] * Glucose by meter (03/08/2024 3:08 AM CDT) GLUCOSE BY METER POCT 90 70 - 99 mg/dL 03/08/2024 3:15 AM CDT LABORATORY POC Blood, Capillary BLOOD SPECIMEN / Unknown 03/08/2024 3:08 AM CDT 03/08/2024 3:15 AM CDT Ron Tripathi MD LAB - BEAKER POCT LABORATORY [facility] [address] Lab (1st floor, no room number) [place] [address], [place] * Glucose by meter (03/08/2024 2:01 AM CDT) GLUCOSE BY METER POCT 76 70 - 99 mg/dL 03/08/2024 2:07 AM CDT LABORATORY POC Blood, Capillary BLOOD SPECIMEN / Unknown 03/08/2024 2:01 AM CDT 03/08/2024 2:07 AM CDT Ron Tripathi MD LAB - BEAKER POCT LABORATORY POC [facility] [address] Lab (1st floor, no room number) [place] [address], [facility] * (ABNORMAL) Hemoglobin (03/08/2024 1:12 AM CDT) Hemoglobin 7.6(L) 13.3 - 17.7 g/dL 03/08/2024 1:33 AM CDT LABORATORY Blood STRUCTURE OF LEFT HAND / Unknown Venipuncture / Unknown 03/08/2024 1:12 AM CDT 03/08/2024 1:30 AM CDT Antonino Cheek MD LAB - BLOOD ORDERABL ES LABORATORY [facility] [address] Lab (1st floor, no room number) [place] [address], [facility] * US Upper Extremity Venous Duplex Right [...] US UPPER EXTREMITY VENOUS DUPLEX RIGHT LOCATION: [facility] DATE: 03/07/2024 INDICATION: Swelling, looking for DVT [...] US UPPER EXTREMITY VENOUS DUPLEX RIGHT LOCATION: [facility] DATE: 03/07/2024 INDICATION: Swelling, looking for DVT [...] theproximal to distal forearm. Antonino Cheek MD [facility] ORDERABLES * Glucose by meter (03/07/2024 9:31 PM CDT) [facility] GLUCOSE BY METER POCT 90 70 - 99 mg/dL 03/07/2024 9:38 PM CDT LABORATORY POC Blood, Capillary BLOOD SPECIMEN / Unknown 03/07/2024 9:31 PM CDT 03/07/2024 9:38 PM CDT [facility] LABOR[facility] [address] Lab (1st floor, no room number) [place] [address], [facility] * (ABNORMAL) Hemoglobin (03/07/2024 6:58 PM CDT) Hemoglobin 8.6(L) 13.3 - 17.7 g/dL 03/07/2024 8:44 PM CDT RH LABORATORY Blood STRUCTURE OF RIGHT HAND / Unknown Venipuncture / Unknown 03/07/2024 6:58 PM CDT 03/07/2024 7:06 PM CDT Antonino Cheek MD LAB - BLOOD ORDERABL ES [facility] [address] Lab (1st floor, no room number) [place] [address] * Glucose by meter (03/07/2024 6:56 PM CDT) GLUCOSE BY METER POCT 86 70 - 99 mg/dL 03/07/2024 7:03 PM CDT LABORATORY POC Blood, Capillary BLOOD SPECIMEN / Unknown 03/07/2024 6:56 PM CDT 03/07/2024 7:03 PM CDT Ron Tripathi MD LAB - BEAKER POCT LABORATORY [facility] [address] Lab (1st floor, no room number) [place] [address] * Glucose by meter (03/07/2024 5:03 PM CDT) GLUCOSE BY METER POCT 79 70 - 99 mg/dL 03/07/2024 5:10 PM CDT LABORATORY POC Blood, Capillary BLOOD SPECIMEN / Unknown 03/07/2024 5:03 PM CDT 03/07/2024 5:10 PM CDT Ron Tripathi MD LAB - BEAKER POCT LABORATORY [facility] [address] Lab (1st floor, no room number) [place] [address] * Single Lumen Midline Placement (03/07/2024 1:34 PM CDT) Narrative Patricio Bocanegra RN - 03/07/2024 1:34 PM CDT Patricio Bocanegra RN ? 03/07/2024 ??1:41 PM [facility] Single Lumen Midline Placement Date/Time: [...] procedure a time out was called ?? [place] Protocol: the Joint Commission [place] Protocol was followed ?? Preparation: Patient was [...] size: 4 Fr Brand: Bard Lot number: [id number] Placement method: venipuncture, MST and ultrasound Number [...] Tripathi MD LAB - BEAKER POCT LABORATORY [facility] [address] Lab (1st floor, no room number) [place] [phone] [place] [address] * Glucose by meter (03/07/2024 8:49 AM CDT) GLUCOSE BY METER POCT 77 70 - 99 mg/dL 03/07/2024 8:56 AM CDT LABORATORY POC Blood, Capillary BLOOD SPECIMEN / Unknown 03/07/2024 8:49 AM CDT 03/07/2024 8:56 AM CDT Ron Tripathi MD LAB - BEAKER POCT LABORATORY [facility] [address] Lab (1st floor, no room number) [address] [place] [address] * (ABNORMAL) Renal panel (03/07/2024 6:21 AM [...] MD LAB - BLOOD ORDERA BLES LABORATORY [facility] [address] [facility] Lab (1st floor, no room number) [place] [address], [facility] * (ABNORMAL) INR (03/07/2024 6:21 AM CDT) INR 1.28(H) 0.85 - 1.15 03/07/2024 7:17 AM CDT RH LABORATORY Blood BLOOD SPECIMEN / Unknown Venipuncture / Unknown 03/07/2024 6:21 AM CDT 03/07/2024 7:06 AM CDT Eileen Earl MD LAB - BLOOD ORDERA [facility]ERob[facility] [address] Lab (1st floor, no room number) [address] [place] [address] * (ABNORMAL) Hemoglobin (03/07/2024 6:21 AM CDT) Hemoglobin 7.8(L) 13.3 - 17.7 g/dL 03/07/2024 7:11 AM CDT RH LABORATORY Blood BLOOD SPECIMEN / Unknown Venipuncture / Unknown 03/07/2024 6:21 AM CDT 03/07/2024 7:06 AM CDT Eileen Earl MD LAB - BLOOD KIMA BLERobin Performing Organization Address City/[facility]/ZIP Co de Phone Number [facility] [address] Lab (1st floor, no room number) [place] [phone] [place] [address] * Glucose by meter (03/07/2024 6:19 AM CDT) GLUCOSE BY METER POCT 98 70 - 99 mg/dL 03/07/2024 6:26 AM CDT LABORATORY POC Blood, Capillary BLOOD SPECIMEN / Unknown 03/07/2024 6:19 AM CDT 03/07/2024 6:26 AM CDT Ron Tripathi MD LAB - BEAKER POCT Performing Organization Address City/[facility]/ZIP Co de Phone Number LABORATORY POC [facility] [address] Lab (1st floor, no room number) [place] [phone] * Glucose by meter (03/07/2024 4:05 AM CDT) GLUCOSE BY METER POCT 78 70 - 99 mg/dL 03/07/2024 4:11 AM CDT LABORATORY POC Blood, Capillary BLOOD SPECIMEN / Unknown 03/07/2024 4:05 AM CDT 03/07/2024 4:11 AM CDT Ron DEAN - BEXIANG POCT LABORATORY POC [facility] [address] Lab (1st floor, no room number) [place] [phone] [place] [address] * (ABNORMAL) Hemoglobin (03/07/2024 1:04 AM CDT) Hemoglobin 7.6(L) 13.3 - 17.7 g/dL 03/07/2024 1:17 AM CDT LABORATORY Blood STRUCTURE OF LEFT HAND / Unknown Venipuncture / Unknown 03/07/2024 1:04 AM CDT 03/07/2024 1:14 AM CDT Eileen Earl MD LAB - BLOOD ORDERA BLES Performing Organization Address City/[facility]/ZIP Co de Phone Number LABORATORY [facility] [address] Lab (1st floor, no room number) [place] [phone] [place] [address] * (ABNORMAL) Glucose by meter (03/07/2024 12:40 AM CDT) GLUCOSE BY METER POCT 116(H) 70 - 99 mg/dL 03/07/2024 12:48 AM CDT LABORATORY POC Blood, Capillary BLOOD SPECIMEN / Unknown 03/07/2024 12:40 AM CDT 03/07/2024 12:48 AM CDT Ron DEAN - BEXIANG POCT LABORATORY [facility] [address] Lab (1st floor, no room number) [place] [phone] [place] [address] * (ABNORMAL) Glucose by meter (03/06/2024 9:36 PM CDT) GLUCOSE BY METER POCT 112(H) 70 - 99 mg/dL 03/06/2024 9:44 PM CDT RH LABORATORY POC Blood, Capillary BLOOD SPECIMEN / Unknown 03/06/2024 9:36 PM CDT 03/06/2024 9:44 PM CDT Ron Tripathi MD LAB - BEAKER POCT Performing Organization Address [facility]/ZIP Co de Phone Number LABORATORY [facility] [address] Lab (1st floor, no room number) [place] [phone] [place] [address] * Extra Serum Separator Tube (SST) (03/06/2024 7:55 PM CDT) Hold Specimen JIC 03/06/2024 9:03 PM CDT LABORATORY Blood BLOOD SPECIMEN / Unknown Venipuncture / Unknown 03/06/2024 7:55 PM CDT 03/06/2024 7:55 PM CDT Ron Tripathi MD LAB - BLOOD ORDERABL ES Performing Organization Address [facility]/ZIP Co de Phone Number [facility] [address] Lab (1st floor, no room number) [place] [phone] [place] [address] * (ABNORMAL) Glucose by meter (03/06/2024 6:37 PM CDT) GLUCOSE BY METER POCT 112(H) 70 - 99 mg/dL 03/06/2024 6:45 PM CDT RH LABORATORY POC Blood, Capillary BLOOD SPECIMEN / Unknown 03/06/2024 6:37 PM CDT 03/06/2024 6:45 PM CDT Ron Trpiathi MD LAB - [facility] POCT RH LABORATORY [facility] [address] Lab (1st floor, no room number) [place] [address], [facility] * (ABNORMAL) CBC [facility] [address] Lab (1st floor, no room number) [place] [phone] [place] [address] * (ABNORMAL) Glucose (03/06/2024 4:28 PM CDT) Glucose 196(H) 70 - 99 mg/dL 03/06/2024 4:54 PM CDT LABORATORY Blood STRUCTURE OF LEFT UPPER LIMB / Unknown Venipuncture / Unknown 03/06/2024 4:28 PM CDT 03/06/2024 4:32 PM CDT Antonino Cheek MD LAB - BLOOD ORDERABL ES LABORATORY [facility] [address] Lab (1st floor, no room number) [place] [phone] * (ABNORMAL) Basic metabolic panel (03/06/2024 4:28 [...] MD LAB - BLOOD ORDERABL ES LABORATORY [facility] Lab [address] [facility] Lab (1st floor, no room number) [place] [address], [facility] * (ABNORMAL) Hemoglobin (03/06/2024 4:28 PM CDT) Hemoglobin 7.4(L) 13.3 - 17.7 g/dL 03/06/2024 4:47 PM CDT RH LABORATORY Blood STRUCTURE OF LEFT UPPER LIMB / Unknown Venipuncture / Unknown 03/06/2024 4:28 PM CDT 03/06/2024 4:33 PM CDT Eileen Earl MD LAB - BLOOD ORDERA BLES [facility] [address] Lab (1st floor, no room number) [place] [phone], [facility] * (ABNORMAL) Glucose by meter (03/06/2024 4:26 PM CDT) GLUCOSE BY METER POCT 196(H) 70 - 99 mg/dL 03/06/2024 4:33 PM CDT LABORATORY POC Blood, Capillary BLOOD SPECIMEN / Unknown 03/06/2024 4:26 PM CDT 03/06/2024 4:33 PM CDT Ron Tripathi MD LAB - BEAKER POCT Performing Organization Address [facility]/ZIP Co de Phone Number LABORATORY [facility] [address] Lab (1st floor, no room number) [place] [address], [facility] * (ABNORMAL) Glucose by meter (03/06/2024 4:17 PM CDT) GLUCOSE BY METER POCT 38(LL) 70 - 99 mg/dL 03/06/2024 4:24 PM CDT RH LABORATORY POC Comment:Dr/RN Notified Blood, Capillary BLOOD SPECIMEN / Unknown 03/06/2024 4:17 PM CDT 03/06/2024 4:24 PM CDT Ron Tripathi MD LAB - BEAKER POCT LABORATORY [facility] [address] Lab (1st floor, no room number) [place] [phone] [place] [address] * (ABNORMAL) Glucose by meter (03/06/2024 4:10 PM CDT) GLUCOSE BY METER POCT 47(LL) 70 - 99 mg/dL 03/19/2024 8:02 AM CDT LABORATORY POC Comment:Dr/RN Notified Blood, Capillary BLOOD SPECIMEN / Unknown 03/06/2024 4:10 PM CDT 03/19/2024 8:02 AM CDT Ron Tripathi MD LAB - [facility]AT[facility] [address] Lab (1st floor, no room number) [place] [phone] [place] [address] * (ABNORMAL) Glucose by meter (03/06/2024 3:18 PM CDT) GLUCOSE BY METER POCT 64(L) 70 - 99 mg/dL 03/06/2024 3:26 PM CDT LABORATORY POC Blood, Capillary BLOOD SPECIMEN / Unknown 03/06/2024 3:18 PM CDT 03/06/2024 3:26 PM CDT Ron Tripathi MD LAB - BEAKER POCT LABORATORY [facility] Lab [address] Lab (1st floor, no room number) [place] [phone] [place] [address] * (ABNORMAL) Glucose by meter (03/06/2024 3:03 PM CDT) GLUCOSE BY METER POCT 63(L) 70 - 99 mg/dL 03/06/2024 3:11 PM CDT LABORATORY POC Blood, Capillary BLOOD SPECIMEN / Unknown 03/06/2024 3:03 PM CDT 03/06/2024 3:11 PM CDT Narrative Authorizing Provider Result Lauren Tripathi MD LAB - BEAKER POCT LABORATORY POC [facility] [address] Lab (1st floor, no room number) [place] [address] * (ABNORMAL) Hemoglobin - Pre-Op (03/06/2024 1:23 PM CDT) Hemoglobin 7.6(L) 13.3 - 17.7 g/dL 03/06/2024 1:39 PM CDT LABORATORY Blood STRUCTURE OF RIGHT UPPER LIMB / Unknown Venipuncture / Unknown 03/06/2024 1:23 PM CDT 03/06/2024 1:34 PM CDT Antonino Cheek MD LAB - BLOOD ORDERABL ES Performing Organization Address City/[facility]/ZIP Co de Phone Number LABORATORY [facility] Lab [address] [facility] Lab (1st floor, no room number) [place] [address] * UPPER GI ENDOSCOPY (03/06/2024 1:21 PM CDT) Upper GI Endoscopy [facility] Patient Name: Herminio Victor ? [...] ?Olympus Gastroscope, Model # [id number], Censitrac # [id number] was introduced through the mouth, and ?advanced [...] Note Initiated On: 03/06/2024 1:21 PM MRN: ?[id number] Procedure Date: ? 03/06/2024 1:21:29 PM Total [...] Ron DEAN - DAVID POCT RH LABORATORY [facility] Lab [address] Lab (1st floor, no room number) [place] [address] * Transfuse red blood cells [...] MD LAB - BEAKER POCT RH LABORATORY [facility] Lab [address] Lab (1st floor, no room number) [place] [address] * Adult Type and Screen (03/06/2024 8:53 AM CDT) ABO/RH(D) O POS 03/06/2024 7:57 AM CDT RH BLOOD BANK Antibody Screen Negative Negative 03/06/2024 7:57 AM CDT RH BLOOD BANK SPECIMEN EXPIRATION DATE [id number] 03/06/2024 7:57 AM CDT RH BLOOD BANK Blood STRUCTURE OF RIGHT HAND / Unknown Venipuncture / Unknown 03/06/2024 8:53 AM CDT 03/06/2024 9:00 AM CDT Antonino Cheek MD LAB - BLOOD BANK SHANNON T ORDER RH BLOOD BANK [address] [place] [address] * Glucose by meter (03/06/2024 7:57 AM CDT) GLUCOSE BY METER POCT 87 70 - 99 mg/dL 03/06/2024 8:04 AM CDT RH LABORATORY POC Blood, Capillary BLOOD SPECIMEN / Unknown 03/06/2024 7:57 AM CDT 03/06/2024 8:04 AM CDT Ron Tripathi MD LAB - BEAKER POCT RH LABORATORY POC [facility] Lab [address] Lab (1st floor, no room number) [place] [address] * Prepare red blood cells (unit) (03/06/2024 7:50 AM CDT) Blood Component Type Red Blood Cells RH BLOOD BANK Product Code [id number] RH BLOO D BANK Unit Status Transfused RH BLOO D BANK Unit Number [id number] RH B LOOD BANK CROSSMATCH Compatible RH BLOOD BANK CODING SYSTEM [id number] RH BLO OD BANK ISSUE DATE AND TIME [id number] RH BLOOD BANK UNIT ABO/RH O+ RH BLOOD BANK UNIT TYPE ISBT 5100 RH BL OOD BANK 03/06/2024 7:50 AM CDT Antonino Cheek MD BLOOD BANK PRODUCT O RDERABLES BLOOD [place] [address], [facility] * (ABNORMAL) Renal panel (03/06/2024 6:54 AM [...] BLOOD ORDERA BLES Performing Organization Address [facility]/ZIP Co de Phone Number [facility] [address] Lab (1st floor, no room number) [place] [address] * (ABNORMAL) Hemoglobin (03/06/2024 6:54 AM CDT) Hemoglobin 7.0(L) 13.3 - 17.7 g/dL 03/06/2024 7:04 AM CDT RH LABORATORY Blood STRUCTURE OF RIGHT HAND / Unknown Venipuncture / Unknown 03/06/2024 6:54 AM CDT 03/06/2024 7:00 AM CDT Antonino Cheek MD LAB - BLOOD ORDERABL ES Performing Organization Address [facility]/ZIP Co de Phone Number [facility] [address] Lab (1st floor, no room number) [place] [address] * (ABNORMAL) INR (03/06/2024 6:54 AM CDT) INR 1.51(H) 0.85 - 1.15 03/06/2024 7:19 AM CDT LABORATORY Blood STRUCTURE OF RIGHT HAND / Unknown Venipuncture / Unknown 03/06/2024 6:54 AM CDT 03/06/2024 7:00 AM CDT Eileen Earl MD LAB - BLOOD ORDERA BLES Performing Organization Address City/[facility]/ZIP Co de Phone Number [facility] Lab [address] Lab (1st floor, no room number) [place] [phone] * Glucose by meter (03/06/2024 4:05 AM CDT) GLUCOSE BY METER POCT 90 70 - 99 mg/dL 03/06/2024 4:21 AM CDT RH LABORATORY POC Blood, Capillary BLOOD SPECIMEN / Unknown 03/06/2024 4:05 AM CDT 03/06/2024 4:21 AM CDT Narrative Authorizing Provider Result Lauren DEAN - BEAKER POCT LABORATORY [facility] [address] Lab (1st floor, no room number) [place] [address], [facility] * (ABNORMAL) Glucose by meter (03/06/2024 12:01 AM CDT) GLUCOSE BY METER POCT 101(H) 70 - 99 mg/dL 03/06/2024 12:13 AM CDT LABORATORY POC Blood, Capillary BLOOD SPECIMEN / Unknown 03/06/2024 12:01 AM CDT 03/06/2024 12:13 AM CDT Narrative Authorizing Provider Result Lauren DEAN - BEAKER POCT Performing Organization Address City/[facility]/ZIP Co de Phone Number LABORATORY [facility] [address] Lab (1st floor, no room number) [place] [address], [facility] * Glucose by meter (03/05/2024 10:01 PM CDT) GLUCOSE BY METER POCT 87 70 - 99 mg/dL 03/05/2024 10:09 PM CDT LABORATORY POC Blood, Capillary BLOOD SPECIMEN / Unknown 03/05/2024 10:01 PM CDT 03/05/2024 10:09 PM CDT Narrative Authorizing Provider Result Lauren Tripathi MD LAB - BEAKER POCT LABORATORY [facility] [address] Lab (1st floor, no room number) [place] [address], [facility] * (ABNORMAL) Hemoglobin (03/05/2024 6:53 PM CDT) Hemoglobin 8.4(L) 13.3 - 17.7 g/dL 03/05/2024 7:07 PM CDT RH LABORATORY Blood STRUCTURE OF LEFT HAND / Unknown Venipuncture / Unknown 03/05/2024 6:53 PM CDT 03/05/2024 7:02 PM CDT Antonino Cheek MD LAB - BLOOD ORDERABL ES [facility] Lab [address] Lab (1st floor, no room number) [address] [place] [address] * Glucose by meter (03/05/2024 5:47 PM CDT) GLUCOSE BY METER POCT 96 70 - 99 mg/dL 03/05/2024 5:54 PM CDT RH LABORATORY POC Blood, Capillary BLOOD SPECIMEN / Unknown 03/05/2024 5:47 PM CDT 03/05/2024 5:54 PM CDT Ron Tripathi MD LAB - BEAKER POCT [facility] Lab [address] Lab (1st floor, no room number) [address] * CONDITIONAL Transfuse red blood cells (unit) 1; No special requirements (03/05/2024 4:07 PM CDT) Eileen Earl MD BLOOD TRANSFUSION ORDERABLES * CONDITIONAL Prepare red blood cells (unit) (03/05/2024 12:47 PM CDT) Blood Component Type Red Blood Cells RH BLOOD BANK Product Code [id number] RH BLOO D BANK Unit Status Transfused RH BLOO D BANK Unit Number [id number] RH B LOOD BANK CROSSMATCH Compatible RH BLOOD BANK CODING SYSTEM [id number] RH BLO OD BANK ISSUE DATE AND TIME [id number] RH BLOOD BANK UNIT ABO/RH O+ RH BLOOD BANK UNIT TYPE ISBT 5100 RH BL OOD BANK 03/05/2024 12:4 7 PM CDT Ron Tripathi MD BLOOD BANK PRODUCT O RDERABLES Performing Organization Address [facility] Co de Phone Number BLOOD BANK [address] * (ABNORMAL) Hemoglobin (03/05/2024 12:12 PM CDT) Hemoglobin 6.9(LL) 13.3 - 17.7 g/dL 03/05/2024 12:40 PM CDT RH LABORATORY Blood STRUCTURE OF LEFT HAND / Unknown Venipuncture / Unknown 03/05/2024 12:12 PM CDT 03/05/2024 12:21 PM CDT Antonino Cheek MD LAB - BLOOD ORDERABL ES Performing Organization Address [facility] Co de Phone Number LABORATORY [facility] Lab [address] Lab (1st floor, no room number) [address] * (ABNORMAL) Glucose by meter (03/05/2024 12:06 PM CDT) GLUCOSE BY METER POCT 107(H) 70 - 99 mg/dL 03/05/2024 12:13 PM CDT LABORATORY POC Blood, Capillary BLOOD SPECIMEN / Unknown 03/05/2024 12:06 PM CDT 03/05/2024 12:13 PM CDT Ron Tripathi MD LAB - BEAKER POCT Performing Organization Address [facility]/ZIP Co de Phone Number LABORATORY POC [facility] Lab [address] Lab (1st floor, no room number) [address] * Glucose by meter (03/05/2024 7:58 AM CDT) GLUCOSE BY METER POCT 83 70 - 99 mg/dL 03/05/2024 8:04 AM CDT RH LABORATORY POC Blood, Capillary BLOOD SPECIMEN / Unknown 03/05/2024 7:58 AM CDT 03/05/2024 8:04 AM CDT Ron Tripathi MD LAB - BEAKER POCT Performing Organization Address [facility]/ZIP Co de Phone Number LABORATORY [facility] [address] Lab (1st floor, no room number) [address] [place] [address] * (ABNORMAL) Hemoglobin (03/05/2024 7:35 AM CDT) Hemoglobin 7.1(L) 13.3 - 17.7 g/dL 03/05/2024 8:01 AM CDT LABORATORY Blood STRUCTURE OF LEFT HAND / Unknown Venipuncture / Unknown 03/05/2024 7:35 AM CDT 03/05/2024 7:57 AM CDT Aashish Romero DO LAB - BLOOD ORDER NADIA Performing Organization Address [facility] Co de Phone Number [facility] Lab [address] Lab (1st floor, no room number) [address] [place] [address] * (ABNORMAL) INR (03/05/2024 7:35 AM CDT) INR 2.20(H) 0.85 - 1.15 03/05/2024 8:13 AM CDT LABORATORY Blood STRUCTURE OF LEFT HAND / Unknown Venipuncture / Unknown 03/05/2024 7:35 AM CDT 03/05/2024 7:57 AM CDT Eileen Earl MD LAB - BLOOD ORDERA BLES Performing Organization Address [facility]/ZIP Co de Phone Number [facility] Lab [address] Lab (1st floor, no room number) [address] * (ABNORMAL) Comprehensive metabolic panel (03/05/2024 [...] LAB - BLOOD ORDER NADIA RH LABORATORY [facility] Lab [address] [facility] Lab (1st floor, no room number) [place] [address] * (ABNORMAL) CBC with platelets (03/05/2024 [...] Romero DO LAB - BLOOD ORDER NADIA [facility] Lab [address] Lab (1st floor, no room number) [place] [address] * (ABNORMAL) Glucose by meter (03/05/2024 4:09 AM CDT) GLUCOSE BY METER POCT 107(H) 70 - 99 mg/dL 03/05/2024 4:16 AM CDT LABORATORY POC Blood, Capillary BLOOD SPECIMEN / Unknown 03/05/2024 4:09 AM CDT 03/05/2024 4:16 AM CDT Ron HERNANDEZ POCT LABORATORY [facility] [address] Lab (1st floor, no room number) [place] [address], [facility] * (ABNORMAL) Glucose by meter (03/05/2024 3:22 AM CDT) GLUCOSE BY METER POCT 115(H) 70 - 99 mg/dL 03/05/2024 3:30 AM CDT LABORATORY POC Blood, Capillary BLOOD SPECIMEN / Unknown 03/05/2024 3:22 AM CDT 03/05/2024 3:30 AM CDT Ron HERNANDEZ POCT LABORATORY [facility] [address] Lab (1st floor, no room number) [place] [address], [facility] * (ABNORMAL) Glucose by meter (03/05/2024 12:07 AM CDT) GLUCOSE BY METER POCT 118(H) 70 - 99 mg/dL 03/05/2024 12:14 AM CDT RH LABORATORY POC Blood, Capillary BLOOD SPECIMEN / Unknown 03/05/2024 12:07 AM CDT 03/05/2024 12:14 AM CDT Ron DEAN - BEAKER POCT LABORATORY [facility] Lab [address] Lab (1st floor, no room number) [place] [phone] [place] [address] * (ABNORMAL) Glucose by meter (03/04/2024 9:37 PM CDT) GLUCOSE BY METER POCT 132(H) 70 - 99 mg/dL 03/04/2024 9:45 PM CDT RH LABORATORY POC Blood, Capillary BLOOD SPECIMEN / Unknown 03/04/2024 9:37 PM CDT 03/04/2024 9:45 PM CDT Ron DEAN - DAVID POCT LABORATORY [facility] Lab [address] Lab (1st floor, no room number) [place] [phone] [place] [address] * (ABNORMAL) Glucose by meter (03/04/2024 8:34 PM CDT) GLUCOSE BY METER POCT 122(H) 70 - 99 mg/dL 03/04/2024 8:41 PM CDT RH LABORATORY POC Blood, Capillary BLOOD SPECIMEN / Unknown 03/04/2024 8:34 PM CDT 03/04/2024 8:41 PM CDT Ron DEAN - BEAKER POCT LABORATORY [facility] Lab [address] Lab (1st floor, no room number) [address] * (ABNORMAL) Potassium (03/04/2024 6:29 PM CDT) Potassium 5.6(H) 3.4 - 5.3 mmol/L 03/04/2024 7:00 PM CDT RH LABORATORY Blood STRUCTURE OF LEFT HAND / Unknown Venipuncture / Unknown 03/04/2024 6:29 PM CDT 03/04/2024 6:37 PM CDT Job Her MD LAB - BLOOD ORDERABL ES LABORATORY [facility] Lab [address] Lab (1st floor, no room number) [address] * (ABNORMAL) Hemoglobin (03/04/2024 6:29 PM CDT) Hemoglobin 7.7(L) 13.3 - 17.7 g/dL 03/04/2024 6:41 PM CDT RH LABORATORY Blood STRUCTURE OF LEFT HAND / Unknown Venipuncture / Unknown 03/04/2024 6:29 PM CDT 03/04/2024 6:37 PM CDT Aashish Romero DO LAB - BLOOD ORDER NADIA LABORATORY [facility] Lab [address] Lab (1st floor, no room number) [address] * Glucose by meter (03/04/2024 5:44 PM CDT) GLUCOSE BY METER POCT 93 70 - 99 mg/dL 03/04/2024 5:51 PM CDT LABORATORY POC Blood, Capillary BLOOD SPECIMEN / Unknown 03/04/2024 5:44 PM CDT 03/04/2024 5:51 PM CDT Ron Tripathi MD LAB - BEAKER POCT LABORATORY [facility] Lab [address] Lab (1st floor, no room number) [address] [place] [address] * Glucose by meter (03/04/2024 3:12 PM CDT) GLUCOSE BY METER POCT 96 70 - 99 mg/dL 03/04/2024 3:19 PM CDT RH LABORATORY POC Blood, Capillary BLOOD SPECIMEN / Unknown 03/04/2024 3:12 PM CDT 03/04/2024 3:19 PM CDT Ron DEAN - BEXIANG POCT Performing Organization Address City/[facility]/ZIP Co de Phone Number LABORATORY [facility] [address] Lab (1st floor, no room number) [address] * Glucose by meter (03/04/2024 1:46 PM CDT) GLUCOSE BY METER POCT 86 70 - 99 mg/dL 03/04/2024 1:53 PM CDT LABORATORY POC Blood, Capillary BLOOD SPECIMEN / Unknown 03/04/2024 1:46 PM CDT 03/04/2024 1:53 PM CDT Narrative Authorizing Provider Result Lauren DEAN - DAVID POCT Performing Organization Address [facility]/ZIP Co de Phone Number LABORATORY [facility] Lab [address] Lab (1st floor, no room number) [address] * (ABNORMAL) Glucose by meter (03/04/2024 1:09 PM CDT) GLUCOSE BY METER POCT 67(L) 70 - 99 mg/dL 03/04/2024 1:15 PM CDT RH LABORATORY POC Blood, Capillary BLOOD SPECIMEN / Unknown 03/04/2024 1:09 PM CDT 03/04/2024 1:15 PM CDT Narrative Authorizing Provider Result Lauren Tripathi MD LAB - BEAKER POCT Performing Organization Address City/[facility]/ZIP Co de Phone Number LABORATORY [facility] Lab [address] Lab (1st floor, no room number) [place] [address] * (ABNORMAL) Glucose by meter (03/04/2024 11:59 AM CDT) GLUCOSE BY METER POCT 69(L) 70 - 99 mg/dL 03/04/2024 12:06 PM CDT RH LABORATORY POC Blood, Capillary BLOOD SPECIMEN / Unknown 03/04/2024 11:59 AM CDT 03/04/2024 12:06 PM CDT Ron Tripathi MD LAB - BEAKER POCT Performing Organization Address [facility]/ZIP Co de Phone Number LABORATORY [facility] Lab [address] Lab (1st floor, no room number) [place] [address] * Glucose by meter (03/04/2024 10:47 AM CDT) GLUCOSE BY METER POCT 74 70 - 99 mg/dL 03/04/2024 11:06 AM CDT LABORATORY POC Blood, Capillary BLOOD SPECIMEN / Unknown 03/04/2024 10:47 AM CDT 03/04/2024 11:06 AM CDT Ron DEAN - DAVID POCT Performing Organization Address City/[facility]/ZIP Co de Phone Number LABORATORY [facility] Lab [address] Lab (1st floor, no room number) [place] [address], [facility] * Glucose by meter (03/04/2024 8:58 AM CDT) GLUCOSE BY METER POCT 81 70 - 99 mg/dL 03/04/2024 9:06 AM CDT RH LABORATORY POC Blood, Capillary BLOOD SPECIMEN / Unknown 03/04/2024 8:58 AM CDT 03/04/2024 9:06 AM CDT Ron Tripathi MD LAB - BEAKER POCT LABORATORY [facility] [address] [facility] [facility] (1st floor, no room number) [place] [address] * Glucose by meter (03/04/2024 7:03 AM CDT) GLUCOSE BY METER POCT 76 70 - 99 mg/dL 03/04/2024 7:10 AM CDT LABORATORY POC Blood, Capillary BLOOD SPECIMEN / Unknown 03/04/2024 7:03 AM CDT 03/04/2024 7:10 AM CDT Ron Tripathi MD LAB - BEAKER POCT Performing Organization Address [facility]/ZIP Co de Phone Number LABORATORY [facility] [address] [facility] Lab (1st floor, no room number) [place] [phone] * (ABNORMAL) Comprehensive metabolic panel (03/04/2024 [...] DO LAB - BLOOD ORDER NADIA LABORATORY [facility] Lab [address] Lab (1st floor, no room number) [place] [address] * (ABNORMAL) CBC with platelets [...] LAB - BLOOD ORDER NADIA RH LABORATORY [facility] Lab [address] Lab (1st floor, no room number) [place] [address] * (ABNORMAL) Hemoglobin (03/04/2024 6:45 AM CDT) Hemoglobin 7.1(L) 13.3 - 17.7 g/dL 03/04/2024 6:57 AM CDT RH LABORATORY Blood STRUCTURE OF RIGHT UPPER LIMB / Unknown Venipuncture / Unknown 03/04/2024 6:45 AM CDT 03/04/2024 6:54 AM CDT Ron Tripathi MD LAB - BLOOD ORDERABL ES LABORATORY [facility] Lab [address] Lab (1st floor, no room number) [place] [address], [facility] * Cortisol (03/04/2024 6:45 AM CDT) Cortisol [...] DO LAB - BLOOD ORDER NADIA LABORATORY [facility] [place] [facility] [address] [facility], [address] [place] [address], [facility] * Glucose by meter (03/04/2024 5:08 AM CDT) GLUCOSE BY METER POCT 93 70 - 99 mg/dL 03/04/2024 5:15 AM CDT LABORATORY POC Blood, Capillary BLOOD SPECIMEN / Unknown 03/04/2024 5:08 AM CDT 03/04/2024 5:15 AM CDT Ron Tripathi MD LAB - BEAKER POCT LABORATORY POC [facility] Lab [address] Lab (1st floor, no room number) [place] [address], [facility] * (ABNORMAL) Glucose by meter (03/04/2024 3:28 AM CDT) GLUCOSE BY METER POCT 116(H) 70 - 99 mg/dL 03/04/2024 3:36 AM CDT RH LABORATORY POC Blood, Capillary BLOOD SPECIMEN / Unknown 03/04/2024 3:28 AM CDT 03/04/2024 3:36 AM CDT Narrative Authorizing Provider Result Lauren Tripathi MD LAB - BEAKER POCT LABORATORY [facility] Lab [address] Lab (1st floor, no room number) [place] [address], [facility] * Glucose by meter (03/04/2024 2:12 AM CDT) GLUCOSE BY METER POCT 77 70 - 99 mg/dL 03/04/2024 2:20 AM CDT RH LABORATORY POC Comment:Dr/RN Notified Blood, Capillary BLOOD SPECIMEN / Unknown 03/04/2024 2:12 AM CDT 03/04/2024 2:20 AM CDT Narrative Authorizing Provider Result Lauren Tripathi MD LAB - BEAKER POCT Performing Organization Address City/[facility]/ZIP Co de Phone Number LABORATORY [facility] Lab [address] Lab (1st floor, no room number) [place] [address], [facility] * Glucose by meter (03/04/2024 12:25 AM CDT) GLUCOSE BY METER POCT 96 70 - 99 mg/dL 03/04/2024 12:32 AM CDT LABORATORY POC Blood, Capillary BLOOD SPECIMEN / Unknown 03/04/2024 12:25 AM CDT 03/04/2024 12:32 AM CDT Narrative Authorizing Provider Result Lauren Tripathi MD LAB - BEAKER POCT LABORATORY [facility] Lab [address] Lab (1st floor, no room number) [place] [address], [facility] * (ABNORMAL) Hemoglobin (03/03/2024 9:40 PM CDT) Hemoglobin 7.2(L) 13.3 - 17.7 g/dL 03/03/2024 9:53 PM CDT LABORATORY Blood STRUCTURE OF RIGHT UPPER LIMB / Unknown Venipuncture / Unknown 03/03/2024 9:40 PM CDT 03/03/2024 9:50 PM CDT Narrative Authorizing Provider Result Lauren Tripathi MD LAB - BLOOD ORDERABL ES [facility] Lab [address] Lab (1st floor, no room number) [address] * (ABNORMAL) Glucose by meter (03/03/2024 8:13 PM CDT) GLUCOSE BY METER POCT 144(H) 70 - 99 mg/dL 03/03/2024 8:20 PM CDT LABORATORY POC Blood, Capillary BLOOD SPECIMEN / Unknown 03/03/2024 8:13 PM CDT 03/03/2024 8:20 PM CDT Narrative Authorizing Provider Result Lauren DEAN - BEAKER POCT LABORATORY [facility] Lab [address] Lab (1st floor, no room number) [address] [place] [address] * (ABNORMAL) Glucose by meter (03/03/2024 6:23 PM CDT) GLUCOSE BY METER POCT 110(H) 70 - 99 mg/dL 03/03/2024 6:29 PM CDT LABORATORY POC Blood, Capillary BLOOD SPECIMEN / Unknown 03/03/2024 6:23 PM CDT 03/03/2024 6:29 PM CDT Narrative Authorizing Provider Result Lauren DEAN - BEAKER POCT LABORATORY POC [facility] Lab [address] Lab (1st floor, no room number) [place] [phone] [place] [address] * (ABNORMAL) Glucose by meter (03/03/2024 5:39 PM CDT) GLUCOSE BY METER POCT 57(L) 70 - 99 mg/dL 03/03/2024 5:45 PM CDT RH LABORATORY POC Blood, Capillary BLOOD SPECIMEN / Unknown 03/03/2024 5:39 PM CDT 03/03/2024 5:45 PM CDT Ron Tripathi MD LAB - BEAKER POCT LABORATORY [facility] Lab [address] Lab (1st floor, no room number) [place] [phone] [place] [address] * (ABNORMAL) Glucose by meter (03/03/2024 5:11 PM CDT) GLUCOSE BY METER POCT 64(L) 70 - 99 mg/dL 03/03/2024 5:18 PM CDT LABORATORY POC Blood, Capillary BLOOD SPECIMEN / Unknown 03/03/2024 5:11 PM CDT 03/03/2024 5:18 PM CDT Ron DEAN - BEAKER POCT LABORATORY [facility] [address] Lab (1st floor, no room number) [place] [phone] [place] [address] * (ABNORMAL) Glucose by meter (03/03/2024 4:39 PM CDT) GLUCOSE BY METER POCT 55(L) 70 - 99 mg/dL 03/03/2024 4:46 PM CDT LABORATORY POC Blood, Capillary BLOOD SPECIMEN / Unknown 03/03/2024 4:39 PM CDT 03/03/2024 4:46 PM CDT Ron HERNANDEZ POCT Performing Organization Address City/[facility]/ZIP Co de Phone Number LABORATORY [facility] [address] Lab (1st floor, no room number) [place] [phone] [place] [address] * (ABNORMAL) Glucose by meter (03/03/2024 4:17 PM CDT) GLUCOSE BY METER POCT 65(L) 70 - 99 mg/dL 03/03/2024 4:25 PM CDT [facility] LABORATORY POC Blood, Capillary BLOOD SPECIMEN / Unknown 03/03/2024 4:17 PM CDT 03/03/2024 4:25 PM CDT Ron DENA - DAVID POCT Performing Organization Address [facility]/ZIP Co de Phone Number LABORATORY [facility] [address] Lab (1st floor, no room number) [id number] [place] [address] * (ABNORMAL) Glucose by meter (03/03/2024 2:11 PM CDT) GLUCOSE BY METER POCT 65(L) 70 - 99 mg/dL 03/03/2024 2:17 PM CDT [facility] LABORATORY POC Blood, Capillary BLOOD SPECIMEN / Unknown 03/03/2024 2:11 PM CDT 03/03/2024 2:17 PM CDT Ron HERNANDEZ POCT Performing Organization Address City/[facility]/ZIP Co de Phone Number LABORATORY [facility] [address] Lab (1st floor, no room number) [address] [place] [address] * (ABNORMAL) Hemoglobin (03/03/2024 2:07 PM CDT) Hemoglobin 7.6(L) 13.3 - 17.7 g/dL 03/03/2024 2:13 PM CDT RH LABORATORY Blood STRUCTURE OF RIGHT UPPER LIMB / Unknown Venipuncture / Unknown 03/03/2024 2:07 PM CDT 03/03/2024 2:10 PM CDT Narrative Authorizing Provider Result Lauren Tripathi MD LAB - BLOOD ORDERABL ES Performing Organization Address City/[facility]/ZIP Co de Phone Number [facility] [address] Lab (1st floor, no room number) [place] [phone] [place] [address] * (ABNORMAL) Glucose by meter (03/03/2024 11:59 AM CDT) GLUCOSE BY METER POCT 152(H) 70 - 99 mg/dL 03/03/2024 2:15 PM CDT RH LABORATORY POC Blood, Capillary BLOOD SPECIMEN / Unknown 03/03/2024 11:59 AM CDT 03/03/2024 2:15 PM CDT Ron Tripathi MD LAB - BEAKER POCT Performing Organization Address [facility]/ZIP Co de Phone Number [facility] Lab [address] Lab (1st floor, no room number) [place] [phone], [facility] * Glucose by meter (03/03/2024 11:36 AM CDT) GLUCOSE BY METER POCT 80 70 - 99 mg/dL 03/03/2024 2:14 PM CDT LABORATORY POC Blood, Capillary BLOOD SPECIMEN / Unknown 03/03/2024 11:36 AM CDT 03/03/2024 2:14 PM CDT Narrative Authorizing Provider Result Lauren DEAN - BEAKER POCT LABORATORY [facility] Lab [address] Lab (1st floor, no room number) [place] [address], [facility] * (ABNORMAL) Glucose by meter (03/03/2024 11:14 AM CDT) GLUCOSE BY METER POCT 39(LL) 70 - 99 mg/dL 03/03/2024 2:14 PM CDT RH LABORATORY POC Comment:Dr/RN Notified Blood, Capillary BLOOD SPECIMEN / Unknown 03/03/2024 11:14 AM CDT 03/03/2024 2:14 PM CDT Ron DEAN - BEAKER POCT Performing Organization Address [facility]/ZIP Co de Phone Number LABORATORY [facility] Lab [address] Lab (1st floor, no room number) [address] [place] [address] * Glucose by meter (03/03/2024 10:51 AM CDT) GLUCOSE BY METER POCT 79 70 - 99 mg/dL 03/03/2024 10:58 AM CDT LABORATORY POC Blood, Capillary BLOOD SPECIMEN / Unknown 03/03/2024 10:51 AM CDT 03/03/2024 10:58 AM CDT Ron DEAN - BEAKER POCT Performing Organization Address [facility]/ZIP Co de Phone Number LABORATORY [facility] Lab [address] Lab (1st floor, no room number) [place] [phone] [place] [address] * (ABNORMAL) Glucose by meter (03/03/2024 10:30 AM CDT) GLUCOSE BY METER POCT 56(L) 70 - 99 mg/dL 03/03/2024 10:37 AM CDT LABORATORY POC Blood, Capillary BLOOD SPECIMEN / Unknown 03/03/2024 10:30 AM CDT 03/03/2024 10:37 AM CDT Ron Tripathi MD LAB - BEAKER POCT Performing Organization Address [facility]/ZIP Co de Phone Number LABORATORY [facility] [address] Lab (1st floor, no room number) [place] [phone] [place] [address] * (ABNORMAL) Hemoglobin (03/03/2024 6:10 AM CDT) Hemoglobin 7.1(L) 13.3 - 17.7 g/dL 03/03/2024 6:27 AM CDT RH LABORATORY Blood STRUCTURE OF RIGHT UPPER LIMB / Unknown Venipuncture / Unknown 03/03/2024 6:10 AM CDT 03/03/2024 6:25 AM CDT Ron Tripathi MD LAB - BLOOD ORDERABL ES Performing Organization Address City/[facility]/ZIP Co de Phone Number LABORATORY [facility] Lab [address] Lab (1st floor, no room number) [place] [phone] * (ABNORMAL) INR (03/03/2024 6:10 AM CDT) INR 2.23(H) 0.85 - 1.15 03/03/2024 6:46 AM CDT RH LABORATORY Blood STRUCTURE OF RIGHT UPPER LIMB / Unknown Venipuncture / Unknown 03/03/2024 6:10 AM CDT 03/03/2024 6:25 AM CDT Ron Tripathi MD LAB - BLOOD ORDERABL ES Performing Organization Address [facility]/ZIP Co de Phone Number [facility] Lab [address] Lab (1st floor, no room number) [place] [phone] * (ABNORMAL) CBC with platelets (03/03/2024 [...] MD LAB - BLOOD ORDERABL ES LABORATORY [facility] Lab [address] [facility] Lab (1st floor, no room number) [place] [address] * (ABNORMAL) Basic metabolic panel (03/03/2024 [...] Tripathi MD LAB - BLOOD ORDERABL ES [facility] Lab [address] Lab (1st floor, no room number) [place] [phone] [place] [address] * (ABNORMAL) Glucose by meter (03/03/2024 5:27 AM CDT) GLUCOSE BY METER POCT 135(H) 70 - 99 mg/dL 03/03/2024 5:34 AM CDT LABORATORY POC Blood, Capillary BLOOD SPECIMEN / Unknown 03/03/2024 5:27 AM CDT 03/03/2024 5:34 AM CDT Ron Tripathi MD LAB - BEAKER POCT [facility] Lab [address] Lab (1st floor, no room number) [place] [phone] [place] [address] * Glucose by meter (03/03/2024 4:16 AM CDT) GLUCOSE BY METER POCT 71 70 - 99 mg/dL 03/03/2024 4:23 AM CDT RH LABORATORY POC Blood, Capillary BLOOD SPECIMEN / Unknown 03/03/2024 4:16 AM CDT 03/03/2024 4:23 AM CDT Ron Tripathi MD LAB - BEXIANG POCT LABORATORY [facility] [address] Lab (1st floor, no room number) [place] [phone] [place] [address] * Glucose by meter (03/03/2024 2:40 AM CDT) GLUCOSE BY METER POCT 91 70 - 99 mg/dL 03/03/2024 2:46 AM CDT LABORATORY POC Blood, Capillary BLOOD SPECIMEN / Unknown 03/03/2024 2:40 AM CDT 03/03/2024 2:46 AM CDT Ron Tripathi MD LAB - BEXIANG POCT Performing Organization Address City/[facility]/ZIP Co de Phone Number LABORATORY [facility] [address] Lab (1st floor, no room number) [address] * CONDITIONAL Transfuse red blood [...] CDT Ron DEAN - BEXIANG POCT LABORATORY [facility] [address] Lab (1st floor, no room number) [address] * Glucose by meter (03/03/2024 12:34 AM CDT) GLUCOSE BY METER POCT 74 70 - 99 mg/dL 03/03/2024 12:40 AM CDT RH LABORATORY POC Blood, Capillary BLOOD SPECIMEN / Unknown 03/03/2024 12:34 AM CDT 03/03/2024 12:40 AM CDT Ron Tripathi MD LAB - BEAKER POCT LABORATORY POC [facility] Lab [address] Lab (1st floor, no room number) [address] [place] [address] * Transfuse red blood cells (unit) (03/02/2024 [...] BLOOD ORDERABL ES Performing Organization Address [facility]/ZIP Co de Phone Number [facility] [address] Lab (1st floor, no room number) [address] [place] [address] * (ABNORMAL) Glucose by meter (03/02/2024 9:34 PM CDT) GLUCOSE BY METER POCT 126(H) 70 - 99 mg/dL 03/02/2024 10:03 PM CDT RH LABORATORY POC Blood, Capillary BLOOD SPECIMEN / Unknown 03/02/2024 9:34 PM CDT 03/02/2024 10:03 PM CDT Narrative Authorizing Provider Result Lauren DEAN - BEAKER POCT LABORATORY [facility] [address] Lab (1st floor, no room number) [address] * (ABNORMAL) Glucose by meter (03/02/2024 9:01 PM CDT) GLUCOSE BY METER POCT 136(H) 70 - 99 mg/dL 03/02/2024 9:11 PM CDT RH LABORATORY POC Blood, Capillary BLOOD SPECIMEN / Unknown 03/02/2024 9:01 PM CDT 03/02/2024 9:11 PM CDT Ron Tripathi MD LAB - BEAKER POCT LABORATORY [facility] Lab [address] [facility] Lab (1st floor, no room number) [address] * (ABNORMAL) Glucose by meter (03/02/2024 8:26 PM CDT) GLUCOSE BY METER POCT 65(L) 70 - 99 mg/dL 03/02/2024 8:34 PM CDT LABORATORY POC Blood, Capillary BLOOD SPECIMEN / Unknown 03/02/2024 8:26 PM CDT 03/02/2024 8:34 PM CDT Narrative Authorizing Provider Result Lauren Tripathi MD LAB - BEAKER POCT Performing Organization Address City/[facility]/ZIP Co de Phone Number LABORATORY [facility] [address] Lab (1st floor, no room number) [address] * (ABNORMAL) Glucose by meter (03/02/2024 8:01 PM CDT) GLUCOSE BY METER POCT 54(L) 70 - 99 mg/dL 03/02/2024 8:27 PM CDT LABORATORY POC Blood, Capillary BLOOD SPECIMEN / Unknown 03/02/2024 8:01 PM CDT 03/02/2024 8:27 PM CDT Narrative Authorizing Provider Result Lauren Tripathi MD LAB - BEAKER POCT LABORATORY [facility] [address] Lab (1st floor, no room number) [place] [address] * (ABNORMAL) Glucose by meter (03/02/2024 7:45 PM CDT) GLUCOSE BY METER POCT 41(LL) 70 - 99 mg/dL 03/02/2024 7:55 PM CDT RH LABORATORY POC Blood, Capillary BLOOD SPECIMEN / Unknown 03/02/2024 7:45 PM CDT 03/02/2024 7:55 PM CDT Ron Tripathi MD LAB - BEAKER POCT Performing Organization Address City/[facility]/ZIP Co de Phone Number LABORATORY [facility] Lab [address] Lab (1st floor, no room number) [place] [address] * (ABNORMAL) Ammonia (on ice) (03/02/2024 3:55 PM CDT) Ammonia <10(L) 16 - 60 umol/L 03/02/2024 4:21 PM CDT RH LABORATORY Blood STRUCTURE OF RIGHT UPPER LIMB / Unknown Venipuncture / Unknown 03/02/2024 3:55 PM CDT 03/02/2024 3:57 PM CDT Raúl Bernard MD LAB - BLOOD ORDERABL ES Performing Organization Address City/[facility]/ZIP Co de Phone Number [facility] Lab [address] Lab (1st floor, no room number) [place] [address] * Prepare red blood cells (unit) (03/02/2024 3:29 PM CDT) Blood Component Type Red Blood Cells RH BLOOD BANK Product Code [id number] RH BLOO D BANK Unit Status Transfused RH BLOO D BANK Unit Number [id number] RH B LOOD BANK CROSSMATCH Compatible RH BLOOD BANK CODING SYSTEM [id number] RH BLO OD BANK ISSUE DATE AND TIME [id number] RH BLOOD BANK UNIT ABO/RH O+ RH BLOOD BANK UNIT TYPE ISBT 5100 RH BL OOD BANK 03/02/2024 3:29 PM CDT Raúl Bernard MD BLOOD BANK PRODUCT O RDERABLES Performing Organization Address [facility] Co de Phone Number RH BLOOD BANK [address] [place] [address] * Prepare red blood cells (unit) (03/02/2024 3:29 PM CDT) Blood Component Type Red Blood Cells RH BLOOD BANK Product Code [id number] RH BLOO D BANK Unit Status Transfused RH BLOO D BANK Unit Number [id number] RH B LOOD BANK CROSSMATCH Compatible RH BLOOD BANK CODING SYSTEM [id number] RH BLO OD BANK ISSUE DATE AND TIME [id number] RH BLOOD BANK UNIT ABO/RH O+ RH BLOOD BANK UNIT TYPE ISBT 5100 RH BL OOD BANK 03/02/2024 3:29 PM CDT Raúl Bernard MD BLOOD BANK PRODUCT O RDERABLES Performing Organization Address [facility] Co de Phone Number RH BLOOD BANK [address] [place] [address] * EKG 12-lead, tracing only (03/02/2024 2:00 PM CDT) Systolic Blood Pressure mmHg RADIOLOGY RESULTS Diastolic Blood Pressure mmHg RADIOLOGY RESULTS Ventricular Rate 82 BPM RAD IOLOGY RESULTS Atrial Rate 82 BPM RADIOLOG Y RESULTS NE Interval 210 ms RADIOLOG Y RESULTS QRS Duration 88 ms RADIOLO GY RESULTS QT 382 ms RADIOLOGY RESULTS QTc 446 ms RADIOLOGY RESULTS P [place] 45 degrees RADIOLOGY RESULTS R AXIS -7 degrees RADIOLOGY RESULTS T [place] 24 degrees RADIOLOGY RESULTS Interpretation ECG Sinus rhythm with 1st degree A-V block Inferior infarct , age undetermined Abnormal ECG When compared with ECG of 24-FEB-2024 10:12, No significant change was found Unconfirmed report - interpretation of this ECG is computer generated - see medical record for final interpretation Confirmed by - EMERGENCY ROOM, PHYSICIAN ([id number]), staff editor YISSEL VELASQUEZ ([id number]) on 03/02/2024 3:43:16 PM RADIOLOGY RESULTS 03/02/2024 2:00 PM CDT 03/02/2024 3:43 PM CDT Rúal Bernard MD ECG ORDERABLES RADIOLOGY RESULTS * [...] the Xpert Xpress CoV2/Flu/RSV Assay on the [facility] GeneXpert Instrument. This test should be ordered [...] management. This test was validated by the [facility]. These laboratories are certified under the Clinical Laboratory Improvement Amendments of 1988 (CLIA-88) as qualified to perform high complexity laboratory testing. Raúl Bernard MD LAB - MICRO GENERAL ORDERABLES Performing Organization Address City/[facility]/ZIP Co de Phone Number [facility] [address] Lab (1st floor, no room number) [place] [address] * Hemoglobin A1c (03/02/2024 1:56 [...] BLOOD ORDERABL ES Performing Organization Address [facility]/ZIP Co de Phone Number [facility] [address] Lab (1st floor, no room number) [place] [address] * Adult Type and Screen (03/02/2024 1:56 PM CDT) ABO/RH(D) O POS 03/02/2024 2:59 PM CDT RH BLOOD BANK Antibody Screen Negative Negative 03/02/2024 2:59 PM CDT RH BLOOD BANK SPECIMEN EXPIRATION DATE [id number] 03/02/2024 2:59 PM CDT RH BLOOD BANK Blood BLOOD SPECIMEN / Unknown Venipuncture / Unknown 03/02/2024 1:56 PM CDT 03/02/2024 2:15 PM CDT Raúl Bernard MD LAB - BLOOD BANK SHANNON T ORDER Performing Organization Address City/[facility]/ZIP Co de Phone Number BLOOD BANK [address] [place] [address] * (ABNORMAL) CBC with platelets and differential (03/02/2024 1:56 PM CDT) [facility] WBC Count 5.0 4.0 - 11.0 [...] - BLOOD ORDERABL ES Performing Organization Address City/[facility]/ZIP Co de Phone Number [facility] Lab [address] Lab (1st floor, no room number) [address] [place] [address] * (ABNORMAL) INR (03/02/2024 1:56 PM CDT) INR 2.09(H) 0.85 - 1.15 03/02/2024 3:14 PM CDT RH LABORATORY Blood BLOOD SPECIMEN / Unknown Venipuncture / Unknown 03/02/2024 1:56 PM CDT 03/02/2024 2:15 PM CDT Raúl Bernard MD LAB - BLOOD ORDERABL ES Performing Organization Address City/[facility]/ZIP Co de Phone Number [facility] Lab [address] Lab (1st floor, no room number) [place] [phone] [place] [address] * (ABNORMAL) Comprehensive metabolic panel (03/02/2024 1:56 [...] Bernard MD LAB - BLOOD ORDERABL ES [facility] Lab [address] Lab (1st floor, no room number) [place] [address] * Extra Heparinized Syringe (03/02/2024 1:56 PM CDT) Hold Specimen [facility] 03/02/2024 3:17 PM CDT RH LABORATORY Blood, venous BLOOD SPECIMEN / Unknown Venipuncture / Unknown 03/02/2024 1:56 PM CDT 03/02/2024 2:14 PM CDT Raúl Bernard MD LAB - BLOOD ORDERABL ES Performing Organization Address [facility]/ZIP Co de Phone Number [facility] Lab [address] Lab (1st floor, no room number) [place] [address] * Extra Blood Bank Purple Top Tube (03/02/2024 1:56 PM CDT) Hold Specimen [facility] 03/02/2024 3:17 PM CDT RH LABORATORY Blood BLOOD SPECIMEN / Unknown Venipuncture / Unknown 03/02/2024 1:56 PM CDT 03/02/2024 2:15 PM CDT Raúl Bernard MD LAB - BLOOD ORDERABL ES [facility] Lab [address] Lab (1st floor, no room number) [place] [address], [facility] * Extra Blood Bank Purple [place] Tube (03/02/2024 1:56 PM CDT) Hold Specimen [facility] 03/02/2024 3:17 PM CDT RH LABORATORY Blood BLOOD SPECIMEN / Unknown Venipuncture / Unknown 03/02/2024 1:56 PM CDT 03/02/2024 2:15 PM CDT Raúl Bernard MD LAB - BLOOD ORDERABL ES [facility] Lab [address] Lab (1st floor, no room number) [place] [address] * Extra Purple Top Tube (03/02/2024 1:56 PM CDT) Hold Specimen [facility] 03/02/2024 3:17 PM CDT RH LABORATORY Blood BLOOD SPECIMEN / Unknown Venipuncture / Unknown 03/02/2024 1:56 PM CDT 03/02/2024 2:15 PM CDT Raúl Bernard MD LAB - BLOOD ORDERABL ES Performing Organization Address [facility]/ZIP Co de Phone Number [facility] Lab [address] Lab (1st floor, no room number) [place] [address], [facility] * Extra Green Top (Sea Bright Heparin) Tube (03/02/2024 1:56 PM CDT) Hold Specimen [facility] 03/02/2024 3:17 PM CDT RH LABORATORY Blood BLOOD SPECIMEN / Unknown Venipuncture / Unknown 03/02/2024 1:56 PM CDT 03/02/2024 2:15 PM CDT Raúl Bernard MD LAB - BLOOD ORDERABL ES [facility] Lab [address] Lab (1st floor, no room number) [place] [address], [facility] * Extra Red Top Tube (03/02/2024 1:56 PM CDT) Hold Specimen [facility] 03/02/2024 3:17 PM CDT RH LABORATORY Blood BLOOD SPECIMEN / Unknown Venipuncture / Unknown 03/02/2024 1:56 PM CDT 03/02/2024 2:15 PM CDT Raúl Bernard MD LAB - BLOOD ORDERABL ES [facility] [address] Lab (1st floor, no room number) [place] [address] * Extra Blue Top Tube (03/02/2024 1:56 PM CDT) Hold Specimen [facility] 03/02/2024 3:17 PM CDT LABORATORY Blood BLOOD SPECIMEN / Unknown Venipuncture / Unknown 03/02/2024 1:56 PM CDT 03/02/2024 2:15 PM CDT Raúl Bernard MD LAB - BLOOD ORDERABL ES Performing Organization Address City/[facility]/ZIP Co de Phone Number [facility] Lab [address] Lab (1st floor, no room number) [place] [address] documented in this encounter Visit [...] stools. documented in this encounter Care Teams Middle School Coach Relationship Specialty Start Date End Date Cornell Butt PCP - General 06/24/11 documented as of this encounter
--- OUTSIDE RECORDS SUMMARY | 2024-06-04 15:44 | XMS_ITS | Encounter Summary ---
Author Organization [place] Address [address] [facility] [place] [address] Care Team Providers Care Graphic Production Artist Name Role Phone Preet Huff Primary Care Provider [phone] Reason for Visit * Auth/Cert (Routine) Specialty Diagnoses / Procedures Referred By Contac t Referred To Contact Med Surg Diagnoses Black stool Anemia, unspecified type Anemia, unspecified type Black stool Rh [facility] [address] [place] [address] Referral ID Status Reason Start Date Expiration Date Visits Re quested Visits Authorized [id number] 1 1 Encounter Details Date Type Department Care Team (Late st Contact Info) Description 03/06/2024 2:08 PM CDT Anesthesia Event [facility] Peri Services [address] [place] [address] Nohemy Skinner MD [facility] [place] [address] [place], [place] [id number] Anesthesia Record Procedure Summary Procedure Name Responsible Anesthesiologist Anesthesia Start Time Anesthesia Stop Time ESOPHAGOGASTRODUODENOSCOPY (Mouth) Nohemy Skinner MD 03/06/24 1408 03/06/24 1441 Events Date Time Event Comment 03/06/2024 1228 1230 VALIDATION TECHNICIAN Ready for Procedure 1408 An Start 1410 An Start Data 1410 AN REASSESS I attest that I have identified and re-evaluated the patient immediately before the induction of anesthesia and I am satisfied that the anesthetic plan is suitable for the patient's condition and procedure. The first vital signs recorded are pre- induction. 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 Questions answered and patient/telephone claims representative(s) expressed understanding. - Discussed: - Discussed [...] Care Transfer Note - Raquel Antoine APRN VALIDATION TECHNICIAN - 03/06/2024 2:41 PM CDT Patient: Herminio [...] Description 07/05/2024 1:15 PM CDT Office Visit [facility] [id number] [place] [address] [place] [address] Lizandro Barron MD [address] [place], [place] [address] documented as of this encounter Visit Diagnoses [...] mL/hr documented in this encounter Care Teams Graphic Production Artist Relationship Specialty Start Date End Date Preet Huff PCP - General 06/24/11 documented as of this encounter
--- OUTSIDE RECORDS SUMMARY | 2024-06-04 15:46 | XMS_ITS | Encounter Summary ---
Author Organization [place] Address [address] [facility] 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
--- OUTSIDE RECORDS SUMMARY | 2024-06-04 15:46 | XMS_ITS | Encounter Summary ---
Author Organization [facility] Address [address] [place] [address] Care Team Providers Care Tankage Supervisor Name Role Phone Cornell Butt Primary Care Provider [phone] Reason for Visit * Reason Comments Generalized Weakness * Auth/Cert (Routine) Specialty Diagnoses / Procedures Referred By Contac t Referred To Contact Med Surg Diagnoses Black stool Anemia, unspecified type Anemia, unspecified type Black stool Rh 5 Medical Surgical [address] [place] [address] Referral ID Status Reason Start Date Expiration Date Visits Re quested Visits Authorized [id number] 1 1 Encounter Details Date Type Department Care Team (Late st Contact Info) Description 03/06/2024 1:00 PM CDT - 03/06/2024 2:10 PM CDT Surgery [facility] PeriOp Services [address] [place] [address] Eileen Earl MD [facility] [address] [place] [id number] ESOPHAGOGASTRODUODENOSCOPY Surgery Details Date/Time Status Location OR [...] file Gender Identity Male 12/05/2017 10:39 AM INSURANCE ACCOUNT MANAGER Sexual Orientation Not on file documented [...] from the original note were not included. [facility] Hospital Hospitalist Discharge Summary Date [...] the patient was re cently hospitalized at [facility] from 02/23 to 02/25 for the [...] minutes discharging this patient. Nicolasa Luke DO [facility] 5 MEDICAL SURGICAL [address] [facility] [address] Physical Exam Vital Signs: Temp: 98.4 ??F [...] US UPPER EXTREMITY VENOUS DUPLEX RIGHT LOCATION: [facility] DATE: 03/07/2024 INDICATION: Swelling, looking for [...] EXAM: XR CHEST PORT 1 VIEW LOCATION: [facility] DATE: 03/11/2024 INDICATION: Shortness of breath [...] Refills: 3 Associated Diagnoses: Mixed hyperlipidemia B Wcrhowd-F-Bjtzz Acid (WESCAPS PO) Take 1 capsule by [...] sent through Care Everywhere. * Colon Polyps (Tuvaluan) documented in this encounter Medications at Time of Discharge Medication Sig Dispensed Refills Start Date End Date B Owjhdqe-J-Kymyp Acid (WESCAPS PO) Take 1 capsule by [...] Date: 03/12/2024 Discharge Disposition: Home Discharge Services: MEASUREMENT DEPARTMENT CHIEF CLERK Discharge DME: None Discharge Transportation: agency, other (see comments) ([place] [facility]) Private pay costs discussed: transportation costs Education Provided on the Discharge Plan: yes Persons Notified of Discharge Plans: Aunsalvador Renee Patient/Family in Agreement with the Plan: yes Handoff Referral Completed: No Additional Information: Medically ready for discharge home today with mother and Aunt. Contacted [facility] Renee to confirm that transportation needed to be set up. She stated they use [facility] for his dialysis appointments. Called [place] [facility] and they are unable to provide transportation on short notice and they would not have openings today. Discussed with patients Aunt and she is agreeable to having CM set up [facility] transport and is aware of the potential cost if insurance does not cover. Contacted [facility] and transport set up for [phone]. Aunt will be at home to accept and she confirms a ramp in the rear of the home. Lynne Cárdenas RN BSN OCN [facility] [phone] * Lynne Cárdenas RN - 03/12/2024 1:41 PM CDT Care Management Discharge Note Discharge Date: 03/12/2024 Discharge Disposition: Home Discharge Services: MEASUREMENT DEPARTMENT CHIEF CLERK Discharge DME: None Discharge Transportation: agency, other (see comments) ([place] out [facility] [place]) Private pay costs discussed: Not applicable Does [...] reach her or aunt who is patients MEASUREMENT DEPARTMENT CHIEF CLERK. Left voice mail. Lynne Cárdenas MANAGER SUPPLIER OCN [facility] [phone] * Melissa Dewey RN - 03/12/2024 12:36 [...] checked every 4 hours. Outpatient Dialysis at [facility]. Patient repositioned every 2 hours during the [...] Interval History: Dialysis run parameters reviewed with clinical account executive at patient bedside. Seen on run Resting [...] this interval not displayed. Wojciech Holman MD [facility] - Nephrology [phone] * Jose Enrique Naylor MD - 03/11/2024 10:24 AM CDT Chart reviewed. Labs and vitals reviewed. Sodium better at 126. Potassium okay. No indication for dialysis today. Noted an episode of vomiting and ELECTRO TECH. Chest x-ray appears clear without pulmonary congestion [...] interval not displayed. Jose Enrique Naylor MD [facility] Nephrology [phone] * Nicolasa Luke DO - 03/11/2024 9:13 AM CDT [facility] Medicine Progress Note - Hospitalist Service [...] the patient was re cently hospitalized at [facility] from 02/23 to 02/25 for the [...] 1 unit with hgb this AM 7.8 -ELECTRO TECH overnight had episode of emesis, CPAP was [...] of 03/03. Appeared to be asymptomatic - ELECTRO TECH called for EGD 03/06 because of hypoglycemia. [...] with Mother and Aunt (who is his MEASUREMENT DEPARTMENT CHIEF CLERK) Hx of CVA Legally Blind Hypertension Hyperlipidemia [...] with help/services Nicolasa Luke DO Hospitalist Service [facility] Securely message with Jakob (more info) Text page via [employer] Paging/Directory Physical Exam Vital Signs: Temp: 98.7 [...] Jacobsen RN - 03/11/2024 3:23 AM CDT ELECTRO TECH called. Patient had received 1 unit of blood earlier in the evening. Had cpap put on for the night. staff air defense officer and automobile and property underwriter came into the room and cpap mask was off and patient was on his left side and had vomited. Emesis was yellow in color with some food chunks. Vomit was not evident in the cpap mask. Respiratory was paged and came to see the patient at the bedside. Cross cover was also paged. ELECTRO TECH was then called incase patient had aspirated on vomit. Cpap was not placed back on patient after emesis episode. * Portia Domingo RT - 03/11/2024 3:10 AM CDT Attended ELECTRO TECH that was called due to pt vomiting. [...] - 03/11/2024 3:07 AM CDT Responded to ELECTRO TECH called for an episode of emesis. Patient [...] Romero DO - 03/10/2024 10:27 AM CDT [facility] Hospitalist Progress Note Name: Herminio Victor [...] note, the patient was recently hospitalized at [facility] from 02/23 to 02/25 for the [...] for recheck this evening. Updated mother Arianna Flynn/MEASUREMENT DEPARTMENT CHIEF CLERK Thelma via phone. All questions answered. Problem [...] of 03/03. Appeared to be asymptomatic - ELECTRO TECH called for EGD 03/06 because of hypoglycemia. [...] with Mother and Aunt (who is his MEASUREMENT DEPARTMENT CHIEF CLERK) Hx of CVA Legally Blind Hypertension Hyperlipidemia [...] the past 24 hour(s)). Aashish Romero DO [facility] Hospitalist [address] [place] [address] Securely message with [employer] (more info) Text page via [facility] Paging/Directory 03/10/2024 * Portia Domingo RT - [...] given low sodium Jose Enrique Naylor MD [facility] - Nephrology [phone] Interval History : Seen / examined on [...] 20 mg 20 mg Oral QPM Eileen aErl MD 20 mg at 03/08/24 204 calcium [...] including patient evaluation, reviewing documentation/test results, and customs and border protection officer. Discussed with Dr. Earl. Will no longer follow. Please call with questions or change in condition. Ebony Cheek PA-C [facility] ( [facility]) * Cintia Valadez RN - 03/09/2024 [...] to treatment See Adult Hemodialysis flowsheet in [place] for further details and post assessment. Machine [...] MD - 03/09/2024 8:[address] [facility] Medicine Progress Note - Hospitalist Service [...] the patient was re cently hospitalized at [facility] from 02/23 to 02/25 for the [...] of 03/03. Appeared to be asymptomatic - ELECTRO TECH called for EGD 03/06 because of hypoglycemia. [...] with Mother and Aunt (who is his MEASUREMENT DEPARTMENT CHIEF CLERK) Hx of CVA Legally Blind Hypertension Hyperlipidemia [...] 2-4 Days Antonino Cheek MD Hospitalist Service [facility] Securely message with [employer] (more info) Text page via [facility] Paging/Directory Interval History Denies any symptoms [...] interval not displayed. Jose Enrique Naylor MD [facility] - Nephrology [phone] * Antonino Cheek MD - 03/08/2024 8:[address] [facility] Medicine Progress Note - Hospitalist Service [...] the patient was re cently hospitalized at [facility] from 02/23 to 02/25 for the [...] of 03/03. Appeared to be asymptomatic - ELECTRO TECH called for EGD 03/06 because of hypoglycemia. [...] with Mother and Aunt (who is his MEASUREMENT DEPARTMENT CHIEF CLERK) Hx of CVA Legally Blind Hypertension Hyperlipidemia [...] 2-4 Days Antonino Cheek MD Hospitalist Service [facility] Securely message with [employer] (more info) Text page via [facility] Paging/Directory Interval History Patient denies chest [...] Pulse: 81 Resp: 18 SpO2: 91 % [id number]: Nasal cannula Oxygen Delivery: 2 LPM Weight: [...] US UPPER EXTREMITY VENOUS DUPLEX RIGHT LOCATION: [facility] DATE: 03/07/2024 INDICATION: Swelling, looking for [...] checked every 4 hours. Outpatient Dialysis at [facility] Patient repositioned every 2 hours during the treatment. Pre & Post treatment report called to Anusha Lindsey RN Please note: Please remove patient dressing on AVF and AVG needle sites 24 hours after dialysis. Ifleaking occurs please apply a Band-Aid. Melissa Newton RN * Antonino Cheek MD - 03/07/2024 4:12 PM CDT [facility] Medicine Progress Note - Hospitalist Service [...] the patient was re cently hospitalized at [facility] from 02/23 to 02/25 for the [...] of 03/03. Appeared to be asymptomatic - ELECTRO TECH called for EGD 03/06 because of hypoglycemia. [...] with Mother and Aunt (who is his MEASUREMENT DEPARTMENT CHIEF CLERK) Hx of CVA Legally Blind Hypertension Hyperlipidemia [...] 2-4 Days Antonino Cheek MD Hospitalist Service [facility] Securely message with [employer] (more info) Text page via [facility] Paging/Directory Interval History Patient denies symptoms, [...] given low sodium Jose Enrique Naylor MD [facility]ph[facility] [phone] Interval History : Seen / examined. No [...] chloride 0.9 % infusion Intravenous Continuous Eileen Ealr MD 10 mL/hr at 03/06/24 1252 New [...] including patient evaluation, reviewing documentation/test results, and customs and border protection officer. Discussed with Dr. Janette Cheek PA-C [facility] ( [facility]) * Byron Camarillo RN - 03/07/2024 [...] diet. Patient is due for dialysis tomorrow. [facility] unable to complete colonoscopy today due to lack of preparation. I will discuss with them the convenience to wait 1 more day before colonoscopy. * Megan Salazar - 03/06/2024 4:[address] [facility] Progress Note MS 5 Responded to patient's room regarding overhead Adult Rapid Response CODE. Patient receiving cares. No family present. SHS not needed. SHS remains available. Rev. Edna Hameed.Div. Staff Retail Selling Floor Leader * Janine Irvin RN - 03/06/2024 3:35 [...] and benefits that go along with it. Thlema verbalized understanding of plan today. Thelma gave [...] use as able. Jose Enrique Naylor MD [facility] Nephrology [phone] * Antonino Cheek MD - 03/06/2024 7:30 AM CDT [facility] Medicine Progress Note - Hospitalist Service [...] the patient was re cently hospitalized at [facility] from 02/23 to 02/25 for the [...] with Mother and Aunt (who is his MEASUREMENT DEPARTMENT CHIEF CLERK) Hx of CVA Legally Blind Hypertension Hyperlipidemia [...] 2-4 Days Antonino Cheek MD Hospitalist Service [facility] Securely message with [employer] (more info) Text page via [facility] Paging/Directory Interval History Patient denies symptoms [...] Pulse: 89 Resp: 18 SpO2: 98 % I6Muvvfl: BiPAP/CPAP Weight: 185 lbs 13.56 oz GEN: [...] Paged to Dr. Cheek. Paul Rasmussen MD [facility] * Jose Enrique Naylor [...] given low sodium Jose Enrique Naylor MD [facility] - Nephrology [phone] Interval History : Seen / examined. Appears [...] MD - 03/05/2024 8:[address] [facility] Medicine Progress Note - Hospitalist Service [...] the patient was re cently hospitalized at [facility] from 02/23 to 02/25 for the [...] with Mother and Aunt (who is his MEASUREMENT DEPARTMENT CHIEF CLERK) Hx of CVA Legally Blind Hypertension Hyperlipidemia [...] 2-4 Days Antonino Cheek MD Hospitalist Service [facility] Securely message with [employer] (more info) Text page via [facility] Paging/Directory Interval History Patient is not [...] Recheck INR tomorrow AM. Paul Rasmussen MD [facility] - Digestive [facility] [phone] SUBJECTIVE: Denies pain or new symptoms OBJECTIVE: [...] DO - 03/04/2024 10:[address] [facility] Hospitalist Progress Note Name: Herminio Victor [...] note, the patient was recently hospitalized at [facility] from 02/23 to 02/25 for the [...] improves with food today. Updated Aunt and MEASUREMENT DEPARTMENT CHIEF CLERK Thelma via phone. All questions answered. Problem [...] with Mother and Aunt (who is his MEASUREMENT DEPARTMENT CHIEF CLERK) Hx of CVA Legally Blind Hypertension Hyperlipidemia [...] the past 24 hour(s)). Aashish Romero DO [facility] Hospitalist [address] Veliz [facility] [place] [address] Securely message with [employer] (more info) Text page via [facility] Paging/Directory 03/04/2024 * Douglas Zarate RT [...] Avina DO - 03/03/2024 12:[address] [facility] Hospitalist Progress Note Name: Herminio Victor [...] note, the patient was recently hospitalized at [facility] from 02/23 to 02/25 for the [...] with Mother and Aunt (who is his MEASUREMENT DEPARTMENT CHIEF CLERK) Hx of CVA Legally Blind Hypertension Hyperlipidemia [...] the past 24 hour(s)). Aashish Romero DO [facility] [place] [address] Securely message with [employer] (Tensor[employer] info) Text page via [facility] Paging/Directory 03/03/2024 * Bella Argueta RN - 03/03/2024 10:46 AM CDT DATE/TIME OF CALL RECEIVED FROM LAB: 03/03/24 at 10:47 AM LAB TEST: blood glucose LAB VALUE: 56 PROVIDER NOTIFIED?: Yes PROVIDER NAME: Dr. Delfin Romero DATE/TIME LAB VALUE REPORTED TO PROVIDER: 103 MECHANISM OF PROVIDER NOTIFICATION: [id number]-Hu-Rdgu PROVIDER RESPONSE: Administer IV Dextrose and recheck blood glucose in 15 minutes ++++++++++++++++++++++++++++++++++++ DATE/TIME OF CALL RECEIVED FROM LAB: 03/03/24 at 11:15 am LAB TEST: Blood glucose LAB VALUE: 39 PROVIDER NOTIFIED?: Yes PROVIDER NAME: Delfin Romero DATE/TIME LAB VALUE REPORTED TO PROVIDER: 03/03/24 at 11:18 am MECHANISM OF PROVIDER NOTIFICATION: [id number] PROVIDER RESPONSE: Additional IV dose of Dextrose [...] Tripathi MD - 03/02/2024 4:[address] [facility] History and Physical - Hospitalist Service [...] has memory issues and onto his primary MEASUREMENT DEPARTMENT CHIEF CLERK. Per aunt, patient always had cognitive deficits [...] 2-4 Days Ron Tripathi MD Hospitalist Service [facility] Securely message with [employer] (more info) Text page via [facility] Paging/Directory Chief Complaint Melanotic stools. History [...] ESRD (end stage renal disease) (H) dialysis T--[facility] History of staph septicemia 12/20/2015 [...] Dose Informant Patient Reported? Taking? BISACODYL PO Bulk Mail Clerk Yes No Sig: Take 10 mg by [...] PM CDTAssociated Order(s): Single Lumen Midline Placement [facility] Single Lumen Midline Placement Date/Time: 03/07/2024 [...] the procedure a time out was called [place] Protocol: the Joint Commission [place] Protocol was followed Preparation: Patient was prepped [...] size: 4 Fr Brand: Bard Lot number: [id number] Placement method: venipuncture, MST and ultrasound Number [...] Lopez RDN, LD Clinical Dietitian 3rd floor/ICU: [phone] All other floors: [phone] Weekend/holiday: [phone] Office: [phone] * Job Her MD - 03/04/2024 12:38 [...] file Other Topics Concern Parent/sibling w/ CABG, LA or angioplasty before 65F 55M? Not Asked Social History Narrative Not on file Social Determinants of Health Financial Resource Strain: Low Risk (06/23/2022) Received from [facility] Financial Resource Strain Difficulty of Paying Living Expenses: 3 Difficulty of Paying Living Expenses: Not on file Food Insecurity: No Food Insecurity (06/23/2022) Received from [employer] [facility] [email or web address] [facility] Food Insecurity Worried About Running Out of Food in the Last Year: 1 Transportation Needs: No Transportation Needs (06/23/2022) Received from [employer] [facility] Transportation Needs Lack of Transportation (Medical): 1 Physical Activity: Not on file Stress: Not on file Social Connections: Unknown (06/24/2023) Received from [employer] [facility] [email or web address] [facility] Social Connections Frequency of Communication with Friends and Family: Not on file Interpersonal Safety: Not on file Housing Stability: Low Risk (06/23/2022) Received from [employer] [facility] [email or web address] [facility] Housing Stability Unable to Pay [...] # Will hold heparin with HD Job Hre MD [facility] - Nephrology Office Pager: [phone] * Paul Rasmussen MD - 03/03/2024 3:58 PM CDTAssociated Order(s): GASTROENTEROLOGY IP CONSULT Images from the original note were not included. GASTROENTEROLOGY CONSULTATION Herminio Victor [address] [place] [id number] 58 year old male Admission Date/Time: 03/02/2024 [...] restart based on course. Paul Rasmussen MD [facility] - Digestive Health [phone] HPI: Herminio Victor is a 58 year [...] evening 12/19/17 Yes Estrella Guillen MD B Avygqcv-U-Sjefm Acid (WESCAPS PO) Take 1 capsule by [...] Communication Assessment Patient's communication style: spoken language (Tuvaluan or Bilingual) Hearing Difficulty or Deaf: no [...] Support: Care provided by: other (see comments) (MEASUREMENT DEPARTMENT CHIEF CLERK- aunt Thelma) Provides care for: no one, [...] Insecurity: No Food Insecurity (06/23/2022) Received from [employer] [facility] Food Insecurity Worried About Running Out of Food in the Last Year: 1 Depression: Not at risk (05/22/2020) Received from [facility] PHQ-2 PHQ-2 Score: 0 Housing Stability: Low Risk (06/23/2022) Received from [facility] Housing Stability Unable to Pay for Housing in the Last Year: 1 Tobacco Use: Low Risk (02/25/2024) Patient History Smoking Tobacco Use: Never Smokeless Tobacco Use: Never Passive Exposure: Not on file Financial Resource Strain: Low Risk (06/23/2022) [email or web address] Financial Resource Strain Difficulty of Paying Living Expenses: 3 Difficulty of Paying Living Expenses: Not on file Alcohol Use: Not on file Transportation Needs: No Transportation Needs (06/23/2022) Received from [employer] [facility] Transportation Needs Lack of Transportation (Medical): 1 Physical Activity: Not on file Interpersonal Safety: Not on file Stress: Not on file Social Connections: Unknown (06/24/2023) Received from [employer] [facility] Social Connections Frequency of Communication [...] mother and aunt. His aunt is his MEASUREMENT DEPARTMENT CHIEF CLERK and has 40 hours per week.He receives assistance with all ADL's and IADL's except eating. He is legally blind so he needs assistance with ambulating, positioning and transfers too. He ambulates without any assistive devices.He receives Dialysis on MWF at [facility] in [place] per his aunt report.His transportation company [employer] in [place]. Their Phone number is [phone] and they are open M-F , 7 AM to 5 pm. CM will monitor for any discharge needs. Laura Bird RN, BSN, CM Inpatient Care Coordination [facility] [phone] documented in this encounter ED Notes * Albina Sneed RN - 03/02/2024 5:43 PM CDT [facility] ED Nurse Handoff Report ED Chief complaint: Generalized Weakness . ED Diagnosis: Final diagnoses: Anemia, unspecified type Black stool Allergies: Allergies Allergen Reactions Dihydroxyaluminum Aminoacetate Nausea GI bleeding Aspirin GI Disturbance and Rash PN: LW Reaction: unknown Code Status: Full Code Activity level - Baseline/Home: lift. Activity Level - Current: bed Lift room needed: No. Bariatric: No Wood Heel Flap Trimmer Needed: No Isolation: No. Infection: Not Applicable. [...] POS Antibody Screen Negative SPECIMEN EXPIRATION DATE [id number] PREPARE RED BLOOD CELLS (UNIT) Blood Component Type Red Blood Cells Product Code T5774D46 Unit Status Transfused Unit Number [id number] CROSSMATCH Compatible CODING SYSTEM [id number] ISSUE DATE AND TIME [id number] UNIT ABO/RH O+ UNIT TYPE ISBT 5100 PREPARE RED BLOOD CELLS (UNIT) Blood Component Type Red Blood Cells Product Code B2394X77 Unit Status Ready for issue Unit Number [id number] CROSSMATCH Compatible CODING SYSTEM [id number] PREPARE RED BLOOD CELLS (UNIT) TRANSFUSE RED [...] POS Antibody Screen Negative SPECIMEN EXPIRATION DATE [id number] PREPARE RED BLOOD CELLS (UNIT) Blood Component Type Red Blood Cells Product Code V5849K73 Unit Status Ready for issue Unit Number [id number] CROSSMATCH Compatible CODING SYSTEM [id number] PREPARE RED BLOOD CELLS (UNIT) Blood Component Type Red Blood Cells Product Code D6349Z14 Unit Status Ready for issue Unit Number [id number] CROSSMATCH Compatible CODING SYSTEM [id number] PREPARE RED BLOOD CELLS (UNIT) ABO/RH TYPE AND SCREEN EKG ECG taken at 1400, ECG read at 1403 Sinus rhythm with 1st degree AV block Inferior infarct, age undetermined No significant change when compared to prior, dated 02/24/24. Rate 82 bpm. VA interval 210 ms. QRS duration 88 ms. [...] / Diagnosis [facility] Diagnoses: None MIPS None MDM Herminio Victor [...] LAVINIA ENRIQUEZ, am serving as a scribe color strainer at 2:09 PM on 03/02/2024 to document [...] pt. * Pharmacy-Anticoagulation Service - Ryann Armando [facility] - 03/12/2024 2:15 PM CDT Images from the original note were not included. 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 INR Goal= 2-3. Warfarin PLANT NURSERY WORKER Regimen: 5mg M-F Anticoagulation Dose History More [...] 6:47 AM CDT Assumed care Assumed care [id number]. A&Ox3, disoriented to time and can be [...] Documentation Taken 03/11/2024 1950 by Harriett Jacobsen, human geography instructor Review/Management: medications reviewed Problem: Adult Inpatient Plan [...] Flowsheet Documentation Taken 03/11/2024835 by Raul Carter human geography instructor Review/Management: medications reviewed Goal: Blood Pressure in Desired Range Outcome: Progressing Intervention: Maintain Blood Pressure Management Recent Flowsheet Documentation Taken 03/11/2024 0836 by Ralu Carter RN Medication Review/Management: medications reviewed * Plan of Care - Harriett Jacobsen RN - 03/11/2024 5:48 AM CDT Assumed care [phone]. A&Ox4, but can be confused intermittently. On RA and cpap at night. On a renal diet and needs help ordering/tray set-up. Has midline to L arm that is saline locked. Got 1 unit of blood. BG checks: 148, 120, 94. ELECTRO TECH called overnight, see progress notes from automobile and property underwriter, , and respiratory. Denies pain. Plan [...] Flowsheet Documentation Taken 03/10/20242319 by Harriett Jacobsen human geography instructor Review/Management: medications reviewed Problem: Adult Inpatient Plan [...] Date/Time: 03/11/2024 0241 Mechanism of Provider Notification: [employer] messaging Purpose of Notification: FYI- Patient got [...] Progressing * Pharmacy-Anticoagulation Service - Nivia Mahan [facility] - 03/10/2024 12:35 PM CDT Clinical Pharmacy - Warfarin Dosing Consult Pharmacy has been consulted to manage this patient???s warfarin therapy. Indication: DVT/ PE Treatment Therapy Goal: INR 2-3 Warfarin Prior to Admission: Yes Warfarin PLANT NURSERY WORKER Regimen: 5mg M-F Dose Comments: 5mg today [...] Risk Recent Flowsheet Documentation Taken 03/08/20241823 by iDego Osei RN Safety Promotion/Fall Prevention: activity supervised [...] Flowsheet Documentation Taken 03/08/20241823 by Diego Osei yarn salvager Interventions: declines Goal: Readiness for Transition of [...] ESRD (end stage renal disease) (H) dialysis [facility] History of staph septicemia 12/20/2015 [...] 30 tablet 3 03/01/2024 at PM B Odyiaul-O-Jymgp Acid (WESCAPS PO) Take 1 capsule by [...] and complete assessments, please see documentation flowsheets. [id number] Pertinent assessments:Pt disoriented to time & situation [...] of 36 at upon arrival from PACU, ELECTRO TECH called. PRN D50% 50ml given via IV. [...] and complete assessments, please see documentation flowsheets. [id number] Pertinent assessments:Pt disoriented to time. CPAP in [...] and complete assessments, please see documentation flowsheets. [id number] Pertinent assessments: Pt disoriented to time. CPAP [...] shift note. 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: Added: Senna Deleted: Bisacodyl, Lisinopril (Thelma states she was told to stop giving this last week) Changed: None Allergies reviewed with patient and updates made in EHR: no Medication History Completed By: Quang Gee RPH 03/02/2024 5:32 PM PLANT NURSERY WORKER Med List Medication Sig Last Dose amLODIPine (NORVASC) 5 MG tablet Take 5 mg by mouth daily 03/02/2024 at AM atorvastatin (LIPITOR) 20 MG tablet Take 1 tablet (20 mg) by mouth every evening 03/01/2024 at PM B Raoauiu-C-Tcxsx Acid (WESCAPS PO) Take 1 capsule by [...] Description 07/05/2024 1:15 PM CDT Office Visit [address] [address] Lizandro Barron MD [address] [id number] documented as of this encounter Procedures Procedure [...] by meter (03/12/2024 12:00 PM CDT) [facility] GLUCOSE BY METER POCT 92 70 - 99 mg/dL 03/12/2024 12:10 PM CDT RH LABORATORY POC Blood, Capillary BLOOD SPECIMEN / Unknown 03/12/2024 12:00 PM CDT 03/12/2024 12:10 PM CDT Ron DEAN - BEAKER POCT RH LABORATORY POC [facility] [address] Lab (1st floor, no room number) [place] [address], [facility] * Glucose by meter (03/12/2024 7:51 AM CDT) GLUCOSE BY METER POCT 92 70 - 99 mg/dL 03/12/2024 7:58 AM CDT LABORATORY POC Blood, Capillary BLOOD SPECIMEN / Unknown 03/12/2024 7:51 AM CDT 03/12/2024 7:58 AM CDT Ron Tripathi MD LAB - BEAKER POCT LABORATORY [facility] [address] Lab (1st floor, no room number) [place] [address] * Glucose (03/12/2024 6:06 AM CDT) Glucose 77 70 - 99 mg/dL 03/12/2024 6:35 AM CDT RH LABORATORY Blood STRUCTURE OF RIGHT UPPER LIMB / Unknown Venipuncture / Unknown 03/12/2024 6:06 AM CDT 03/12/2024 6:10 AM CDT Ron Tripathi MD LAB - BLOOD ORDERABL ES Performing Organization Address City/[facility]/ZIP Co de Phone Number [facility] [address] Lab (1st floor, no room number) [place] [address] * (ABNORMAL) Hemoglobin (03/12/2024 6:06 AM CDT) Hemoglobin 8.1(L) 13.3 - 17.7 g/dL 03/12/2024 6:14 AM CDT RH LABORATORY Blood STRUCTURE OF RIGHT UPPER LIMB / Unknown Venipuncture / Unknown 03/12/2024 6:06 AM CDT 03/12/2024 6:10 AM CDT Aashish Romero DO LAB - BLOOD ORDER NADIA [facility] [address] Lab (1st floor, no room number) [place] [address], [facility] * (ABNORMAL) Renal [...] - BLOOD ORDERA BLES Performing Organization Address City/[facility]/ZIP Co de Phone Number LABORATORY [facility] [address] Lab (1st floor, no room number) [place] [phone] [place] [address] * (ABNORMAL) INR (03/12/2024 6:06 AM CDT) INR 1.20(H) 0.85 - 1.15 03/12/2024 6:25 AM CDT RH LABORATORY Blood STRUCTURE OF RIGHT UPPER LIMB / Unknown Venipuncture / Unknown 03/12/2024 6:06 AM CDT 03/12/2024 6:10 AM CDT Eileen Earl MD LAB - BLOOD ORDERA BLERboin Performing Organization Address [facility]/ZIP Co de Phone Number LABORATORY [facility] [address] Lab (1st floor, no room number) [place] [address] * (ABNORMAL) Glucose by meter (03/12/2024 1:55 AM CDT) GLUCOSE BY METER POCT 107(H) 70 - 99 mg/dL 03/12/2024 2:01 AM CDT LABORATORY POC Blood, Capillary BLOOD SPECIMEN / Unknown 03/12/2024 1:55 AM CDT 03/12/2024 2:01 AM CDT Ron Tripathi MD LAB - BEAKER POCT LABORATORY POC [facility] [address] Lab (1st floor, no room number) [place] [phone], [facility] * (ABNORMAL) Glucose by meter (03/11/2024 9:11 PM CDT) GLUCOSE BY METER POCT 132(H) 70 - 99 mg/dL 03/11/2024 9:18 PM CDT RH LABORATORY POC Blood, Capillary BLOOD SPECIMEN / Unknown 03/11/2024 9:11 PM CDT 03/11/2024 9:18 PM CDT Ron DEAN - BEXIANG POCT LABORATORY [facility] [address] Lab (1st floor, no room number) [place] [address] * (ABNORMAL) Hemoglobin (03/11/2024 6:10 PM CDT) Hemoglobin 8.8(L) 13.3 - 17.7 g/dL 03/11/2024 6:22 PM CDT LABORATORY Blood STRUCTURE OF RIGHT UPPER LIMB / Unknown Venipuncture / Unknown 03/11/2024 6:10 PM CDT 03/11/2024 6:20 PM CDT Aashish Romero DO LAB - BLOOD ORDER NADIA Performing Organization Address City/[facility]/ZIP Co de Phone Number [facility] [address] Lab (1st floor, no room number) [place] [address], [facility] * (ABNORMAL) Glucose by meter (03/11/2024 5:31 PM CDT) GLUCOSE BY METER POCT 144(H) 70 - 99 mg/dL 03/11/2024 5:39 PM CDT LABORATORY POC Blood, Capillary BLOOD SPECIMEN / Unknown 03/11/2024 5:31 PM CDT 03/11/2024 5:39 PM CDT Ron DEAN - DAVID POCT LABORATORY [facility] [address] Lab (1st floor, no room number) [place] [address] * (ABNORMAL) Glucose by meter (03/11/2024 11:47 AM CDT) GLUCOSE BY METER POCT 117(H) 70 - 99 mg/dL 03/11/2024 11:54 AM CDT LABORATORY POC Blood, Capillary BLOOD SPECIMEN / Unknown 03/11/2024 11:47 AM CDT 03/11/2024 11:54 AM CDT Narrative Authorizing Provider Result Lauren Tripathi MD LAB - BEAKER POCT Performing Organization Address City/[facility]/ZIP Co de Phone Number LABORATORY [facility] [address] Lab (1st floor, no room number) [address] * Glucose by meter (03/11/2024 7:36 AM CDT) GLUCOSE BY METER POCT 81 70 - 99 mg/dL 03/11/2024 7:45 AM CDT LABORATORY POC Blood, Capillary BLOOD SPECIMEN / Unknown 03/11/2024 7:36 AM CDT 03/11/2024 7:45 AM CDT Narrative Authorizing Provider Result Lauren Tripathi MD LAB - BEAKER POCT Performing Organization Address [facility]/ZIP Co de Phone Number LABORATORY [facility] [address] Lab (1st floor, no room number) [address] * (ABNORMAL) Renal panel (03/11/2024 7:03 [...] 7:03 AM CDT 03/11/2024 7:10 AM CDT iEleen Earl MD LAB - BLOOD ORDERA BLES [facility] [address] Lab (1st floor, no room number) [place] [address], [facility] * INR (03/11/2024 7:03 AM CDT) INR 1.11 0.85 - 1.15 03/11/2024 7:31 AM CDT RH LABORATORY Blood STRUCTURE OF RIGHT UPPER LIMB / Unknown Venipuncture / Unknown 03/11/2024 7:03 AM CDT 03/11/2024 7:10 AM CDT Eileen Earl MD LAB - BLOOD ORDERA BLES [facility] [address] Lab (1st floor, no room number) [place] [address] * (ABNORMAL) CBC with platelets (03/11/2024 7:03 AM CDT) [facility] Signature WBC Count 9.9 4.0 - 11.0 [...] LAB - BLOOD ORDER NADIA RH LABORATORY [facility] [address] Lab (1st floor, no room number) [place] [address], [facility] * XR Chest Port 1 View (03/11/2024 3:25 AM CDT) Anatomical Region Laterality Modality Chest Digital Radiogra phy 03/11/2024 3:25 AM CDT Impressions 03/11/2024 3:30 AM CDT IMPRESSION: Normal heart size and pulmonary vascularity. Lungs clear. No pneumothorax. Minimal fluid or thickening along the right fissure. Narrative 03/11/2024 3:30 AM CDT EXAM: XR CHEST PORT 1 VIEW LOCATION: [facility] DATE: 03/11/2024 INDICATION: Shortness of breath COMPARISON: None. Procedure Note David Díaz MD - 03/11/2024 EXAM: XR CHEST PORT 1 VIEW LOCATION: [facility] DATE: 03/11/2024 INDICATION: Shortness of breath [...] Tripathi MD LAB - BEAKER POCT LABORATORY [facility] Lab [address] Lab (1st floor, no room number) [place] [address] * (ABNORMAL) Glucose by meter (03/11/2024 1:57 AM CDT) GLUCOSE BY METER POCT 120(H) 70 - 99 mg/dL 03/11/2024 2:04 AM CDT LABORATORY POC Blood, Capillary BLOOD SPECIMEN / Unknown 03/11/2024 1:57 AM CDT 03/11/2024 2:04 AM CDT Ron Tripathi MD LAB - BEAKER POCT LABORATORY [facility] Lab [address] Lab (1st floor, no room number) [place] [address] * CONDITIONAL Transfuse red blood [...] LAB - BEAKER POCT RH LABORATORY POC [facility] [address] [facility] Lab (1st floor, no room number) [place] [phone] * Adult Type and Screen (03/10/2024 6:53 PM CDT) ABO/RH(D) O POS 03/10/2024 6:44 PM CDT RH BLOOD BANK Antibody Screen Negative Negative 03/10/2024 6:44 PM CDT RH BLOOD BANK SPECIMEN EXPIRATION DATE [id number] 03/10/2024 6:44 PM CDT RH BLOOD BANK Blood STRUCTURE OF RIGHT UPPER LIMB / Unknown Venipuncture / Unknown 03/10/2024 6:53 PM CDT 03/10/2024 6:57 PM CDT Antonino Cheek MD LAB - BLOOD BANK SHANNON T ORDER RH BLOOD BANK [address] [place] [address] * CONDITIONAL Prepare red blood cells (unit) (03/10/2024 6:37 PM CDT) Blood Component Type Red Blood Cells RH BLOOD BANK Product Code [id number] RH BLOO D BANK Unit Status Transfused RH BLOO D BANK Unit Number [id number] RH B LOOD BANK CROSSMATCH Compatible RH BLOOD BANK CODING SYSTEM [id number] RH BLO OD BANK ISSUE DATE AND TIME [id number] RH BLOOD BANK UNIT ABO/RH O+ RH BLOOD BANK UNIT TYPE ISBT 5100 RH BL OOD BANK 03/10/2024 6:37 PM CDT Eileen Earl MD BLOOD BANK PRODUCT ORDERABLES RH BLOOD BANK [address] [place] [address], [facility] * (ABNORMAL) Hemoglobin (03/10/2024 6:00 PM CDT) Hemoglobin 7.0(L) 13.3 - 17.7 g/dL 03/10/2024 6:09 PM CDT RH LABORATORY Blood STRUCTURE OF RIGHT UPPER LIMB / Unknown Venipuncture / Unknown 03/10/2024 6:00 PM CDT 03/10/2024 6:07 PM CDT Aashish Romero DO LAB - BLOOD ORDER NADIA Performing Organization Address [facility]/ZIP Co de Phone Number [facility] [address] [facility] Lab (1st floor, no room number) [place] [address], [facility] * (ABNORMAL) Glucose by meter (03/10/2024 4:49 PM CDT) GLUCOSE BY METER POCT 208(H) 70 - 99 mg/dL 03/10/2024 5:05 PM CDT RH LABORATORY POC Blood, Capillary BLOOD SPECIMEN / Unknown 03/10/2024 4:49 PM CDT 03/10/2024 5:05 PM CDT Ron Tripathi MD LAB - BEAKER POCT Performing Organization Address City/[facility]/ZIP Co de Phone Number LABORATORY [facility] Lab [address] Lab (1st floor, no room number) [place] [address], [facility] * Glucose by meter (03/10/2024 2:35 PM CDT) GLUCOSE BY METER POCT 98 70 - 99 mg/dL 03/10/2024 2:43 PM CDT RH LABORATORY POC Blood, Capillary BLOOD SPECIMEN / Unknown 03/10/2024 2:35 PM CDT 03/10/2024 2:43 PM CDT Ron Tripathi MD LAB - BEAKER POCT LABORATORY [facility] [address] Lab (1st floor, no room number) [place] [address], [facility] * Glucose by meter (03/10/2024 1:28 PM CDT) GLUCOSE BY METER POCT 94 70 - 99 mg/dL 03/10/2024 1:37 PM CDT RH LABORATORY POC Blood, Capillary BLOOD SPECIMEN / Unknown 03/10/2024 1:28 PM CDT 03/10/2024 1:37 PM CDT Narrative Authorizing Provider Result Lauren DEAN - DAVID POCT LABORATORY [facility] [address] Lab (1st floor, no room number) [place] [address], [facility] * Glucose by meter (03/10/2024 12:35 PM CDT) GLUCOSE BY METER POCT 92 70 - 99 mg/dL 03/10/2024 12:50 PM CDT RH LABORATORY POC Blood, Capillary BLOOD SPECIMEN / Unknown 03/10/2024 12:35 PM CDT 03/10/2024 12:50 PM CDT Narrative Authorizing Provider Result Lauren DEAN - BEXIANG POCT LABORATORY [facility] Lab [address] Lab (1st floor, no room number) [address] * (ABNORMAL) Glucose by meter (03/10/2024 11:28 AM CDT) GLUCOSE BY METER POCT 102(H) 70 - 99 mg/dL 03/10/2024 11:35 AM CDT RH LABORATORY POC Blood, Capillary BLOOD SPECIMEN / Unknown 03/10/2024 11:28 AM CDT 03/10/2024 11:35 AM CDT Narrative Authorizing Provider Result Lauren Tripathi MD LAB - BEAKER POCT LABORATORY [facility] [address] Lab (1st floor, no room number) [address] * (ABNORMAL) Glucose by meter (03/10/2024 10:35 AM CDT) GLUCOSE BY METER POCT 133(H) 70 - 99 mg/dL 03/10/2024 10:42 AM CDT LABORATORY POC Blood, Capillary BLOOD SPECIMEN / Unknown 03/10/2024 10:35 AM CDT 03/10/2024 10:42 AM CDT Narrative Authorizing Provider Result Lauren DEAN - BEAKER POCT Performing Organization Address City/[facility]/ZIP Co de Phone Number LABORATORY [facility] [address] Lab (1st floor, no room number) [address] * (ABNORMAL) Glucose by meter (03/10/2024 8:32 AM CDT) GLUCOSE BY METER POCT 105(H) 70 - 99 mg/dL 03/10/2024 8:45 AM CDT RH LABORATORY POC Blood, Capillary BLOOD SPECIMEN / Unknown 03/10/2024 8:32 AM CDT 03/10/2024 8:45 AM CDT Narrative Authorizing Provider Result Lauren DEAN - BEAKER POCT LABORATORY POC [facility] [address] Lab (1st floor, no room number) [place] [address] * (ABNORMAL) Hemoglobin (03/10/2024 7:46 AM CDT) Hemoglobin 7.0(L) 13.3 - 17.7 g/dL 03/10/2024 7:55 AM CDT LABORATORY Blood STRUCTURE OF RIGHT UPPER LIMB / Unknown Venipuncture / Unknown 03/10/2024 7:46 AM CDT 03/10/2024 7:50 AM CDT Rno Tripathi MD LAB - BLOOD ORDERABL ES Performing Organization Address [facility]/ZIP Co de Phone Number LABORATORY [facility] [address] Lab (1st floor, no room number) [place] [address] * (ABNORMAL) Renal panel (03/10/2024 [...] - BLOOD ORDERA BLES Performing Organization Address City/[facility]/ZIP Co de Phone Number [facility] [address] Lab (1st floor, no room number) [place] [phone] [place] [address] * (ABNORMAL) INR (03/10/2024 7:46 AM CDT) INR 1.18(H) 0.85 - 1.15 03/10/2024 8:03 AM CDT LABORATORY Blood STRUCTURE OF RIGHT UPPER LIMB / Unknown Venipuncture / Unknown 03/10/2024 7:46 AM CDT 03/10/2024 7:50 AM CDT Eileen Earl MD LAB - BLOOD ORDERA BLES [facility] [address] (1st floor, no room number) [place] [phone] [place] [address] * (ABNORMAL) Glucose by meter (03/10/2024 3:38 AM CDT) GLUCOSE BY METER POCT 112(H) 70 - 99 mg/dL 03/10/2024 3:44 AM CDT RH LABORATORY POC Blood, Capillary BLOOD SPECIMEN / Unknown 03/10/2024 3:38 AM CDT 03/10/2024 3:44 AM CDT Narrative Authorizing Provider Result Lauren DEAN - BEAKER POCT Performing Organization Address [facility]/ZIP Co de Phone Number LABORATORY [facility] [address] Lab (1st floor, no room number) [place] [phone], [facility] * Glucose by meter (03/10/2024 12:05 AM CDT) GLUCOSE BY METER POCT 97 70 - 99 mg/dL 03/10/2024 12:11 AM CDT LABORATORY POC Blood, Capillary BLOOD SPECIMEN / Unknown 03/10/2024 12:05 AM CDT 03/10/2024 12:11 AM CDT Narrative Authorizing Provider Result Lauren DEAN - BEAKER POCT Performing Organization Address [facility]/ZIP Co de Phone Number LABORATORY [facility] [address] Lab (1st floor, no room number) [place] [address], [facility] * (ABNORMAL) Hemoglobin (03/09/2024 11:50 PM CDT) Hemoglobin 7.5(L) 13.3 - 17.7 g/dL 03/09/2024 11:57 PM CDT LABORATORY Blood STRUCTURE OF RIGHT HAND / Unknown Venipuncture / Unknown 03/09/2024 11:50 PM CDT 03/09/2024 11:53 PM CDT Narrative Authorizing Provider Result Lauren Tripathi MD LAB - BLOOD ORDERABL ES Performing Organization Address [facility]/ZIP Co de Phone Number [facility] [address] Lab (1st floor, no room number) [place] [address], [facility] * (ABNORMAL) Glucose by meter (03/09/2024 8:25 PM CDT) GLUCOSE BY METER POCT 159(H) 70 - 99 mg/dL 03/09/2024 8:32 PM CDT RH LABORATORY POC Blood, Capillary BLOOD SPECIMEN / Unknown 03/09/2024 8:25 PM CDT 03/09/2024 8:32 PM CDT Narrative Authorizing Provider Result Lauren Tripathi MD LAB - BEAKER POCT LABORATORY [facility] [address] Lab (1st floor, no room number) [place] [address] * (ABNORMAL) Hemoglobin (03/09/2024 7:13 PM CDT) Hemoglobin 7.6(L) 13.3 - 17.7 g/dL 03/09/2024 7:27 PM CDT LABORATORY Blood VENOUS LINE / Unknown Venipuncture / Unknown 03/09/2024 7:13 PM CDT 03/09/2024 7:25 PM CDT Narrative Authorizing Provider Result Lauren Tripathi MD LAB - BLOOD ORDERABL ES Performing Organization Address [facility]/ZIP Co de Phone Number [facility] [address] Lab (1st floor, no room number) [place] [address], [facility] * (ABNORMAL) Glucose by meter (03/09/2024 4:12 PM CDT) GLUCOSE BY METER POCT 147(H) 70 - 99 mg/dL 03/09/2024 4:19 PM CDT LABORATORY POC Blood, Capillary BLOOD SPECIMEN / Unknown 03/09/2024 4:12 PM CDT 03/09/2024 4:19 PM CDT Narrative Authorizing Provider Result Lauren Tripathi MD LAB - BEAKER POCT Performing Organization Address City/[facility]/ZIP Co de Phone Number LABORATORY [facility] [address] Lab (1st floor, no room number) [place] [address], [place] * (ABNORMAL) Hemoglobin (03/09/2024 2:16 PM CDT) Hemoglobin 7.6(L) 13.3 - 17.7 g/dL 03/09/2024 2:43 PM CDT LABORATORY Blood VASCULAR LINE / Unknown Venipuncture / Unknown 03/09/2024 2:16 PM CDT 03/09/2024 2:29 PM CDT Ron Tripathi MD LAB - BLOOD ORDERABL ES [facility] [address] Lab (1st floor, no room number) [place] [address] * (ABNORMAL) Glucose by meter (03/09/2024 1:35 PM CDT) GLUCOSE BY METER POCT 150(H) 70 - 99 mg/dL 03/09/2024 1:42 PM CDT LABORATORY POC Blood, Capillary BLOOD SPECIMEN / Unknown 03/09/2024 1:35 PM CDT 03/09/2024 1:42 PM CDT Ron Tripathi MD LAB - BEAKER POCT LABORATORY [facility] [address] Lab (1st floor, no room number) [place] [address] * Morphology Tracking (03/09/2024 9:12 AM CDT) Blood VENOUS LINE / Unknown Venipuncture / Unknown 03/09/2024 9:12 AM CDT 03/09/2024 9:26 AM CDT Antonino Cheek MD LAB - BLOOD ORDERABL ES [facility] [address] Lab (1st floor, no room number) [place] [address], [facility] * (ABNORMAL) Reticulocyte [...] LAB - BLOOD ORDERABL ES RH LABORATORY [facility] [address] [facility] Lab (1st floor, no room number) [place] [address] * (ABNORMAL) CBC with platelets [...] LAB - BLOOD ORDERABL ES RH LABORATORY [facility] [address] Lab (1st floor, no room number) [place] [address], [facility] * Bld morphology pathology review (03/09/2024 9:12 AM CDT) Final Diagnosis Peripheral blood for morphology: -Moderate normochromic, normocytic anemia without evidence of red cell regeneration; no morphologic or laboratory features of hemolysis detected -Slight mature neutrophilia without morphologic abnormalities 03/13/2024 10:17 AM [facility] Comment Review of recent laboratory data notes normal LDH and haptoglobin. The history of GI bleeding and end-stage renal disease on hemodialysis are noted. Both conditions would contribute to the anemia present. 03/13/2024 10:17 AM [facility] Clinical Information Looking for signs of hemolysis 03/13/2024 10:17 AM [facility] Peripheral Smear ERYTHROCYTES: The hemoglobin [...] [facility] Performing Labs The technical component of this testing was completed at [facility], [facility] and [facility] 03/13/2024 10:17 AM CDT [facility] Blood VENOUS LINE / [...] Cheek MD LAB - BEAKER AP [facility] [address], [address] [place] [address] * Haptoglobin (03/09/2024 9:12 AM CDT) Haptoglobin 127 30 - 200 mg/dL 03/10/2024 1:23 AM CDT [facility] LABORATORY Blood VENOUS LINE / Unknown Venipuncture / Unknown 03/09/2024 9:12 AM CDT 03/09/2024 9:26 AM CDT Antonino Cheek MD LAB - BLOOD ORDERABL ES [facility] LABORATORY [facility] [address] [facility], [address] [place] [address] * Bilirubin Direct and Total [...] ES Performing Organization Address [facility]/ZIP Co de Phone Number [facility] [address] Lab (1st floor, no room number) [address] * Lactate Dehydrogenase (03/09/2024 9:12 AM CDT) Lactate Dehydrogenase 226 0 - 250 U/L 03/09/2024 9:59 AM CDT LABORATORY Blood VENOUS LINE / Unknown Venipuncture / Unknown 03/09/2024 9:12 AM CDT 03/09/2024 9:26 AM CDT Antonino Cheek MD LAB - BLOOD ORDERABL ES Performing Organization Address [facility]/ZIP Co de Phone Number [facility] [address] Lab (1st floor, no room number) [address] * INR (03/09/2024 9:12 AM CDT) INR 1.13 0.85 - 1.15 03/09/2024 9:41 AM CDT LABORATORY Blood VENOUS LINE / Unknown Venipuncture / Unknown 03/09/2024 9:12 AM CDT 03/09/2024 9:26 AM CDT Eileen Earl MD LAB - BLOOD ORDERA BLES Performing Organization Address City/[facility]/ZIP Co de Phone Number [facility] [address] Lab (1st floor, no room number) [address] [place] [address] * Glucose by meter (03/09/2024 7:55 AM CDT) GLUCOSE BY METER POCT 91 70 - 99 mg/dL 03/09/2024 8:04 AM CDT RH LABORATORY POC Comment:Dr/RN Notified Blood, Capillary BLOOD SPECIMEN / Unknown 03/09/2024 7:55 AM CDT 03/09/2024 8:04 AM CDT [facility] [address] Lab (1st floor, no room number) [place] [address], [facility] * (ABNORMAL) Renal [...] MD LAB - BLOOD ORDERA BLES LABORATORY [facility] [address] Lab (1st floor, no room number) [address] [place] [address] * (ABNORMAL) Hemoglobin (03/09/2024 5:49 AM CDT) Hemoglobin 7.5(L) 13.3 - 17.7 g/dL 03/09/2024 6:00 AM CDT RH LABORATORY Blood VENOUS LINE / Unknown Venipuncture / Unknown 03/09/2024 5:49 AM CDT 03/09/2024 5:57 AM CDT Ron Tripathi MD LAB - BLOOD ORDERABL ES Performing Organization Address [facility]/ZIP Co de Phone Number LABORATORY [facility] [address] Lab (1st floor, no room number) [place] [phone] [place] [address] * (ABNORMAL) Glucose by meter (03/09/2024 4:31 AM CDT) GLUCOSE BY METER POCT 112(H) 70 - 99 mg/dL 03/09/2024 4:37 AM CDT RH LABORATORY POC Blood, Capillary BLOOD SPECIMEN / Unknown 03/09/2024 4:31 AM CDT 03/09/2024 4:37 AM CDT Ron Tripathi MD LAB - BEAKER POCT LABORATORY POC [facility] [address] Lab (1st floor, no room number) [place] [address], [facility] * (ABNORMAL) Glucose by meter (03/09/2024 12:26 AM CDT) GLUCOSE BY METER POCT 124(H) 70 - 99 mg/dL 03/09/2024 12:32 AM CDT LABORATORY POC Blood, Capillary BLOOD SPECIMEN / Unknown 03/09/2024 12:26 AM CDT 03/09/2024 12:32 AM CDT Ron DEAN - BEAKER POCT LABORATORY [facility] Lab [address] Lab (1st floor, no room number) [address] [place] [address] * (ABNORMAL) Hemoglobin (03/08/2024 10:35 PM CDT) Hemoglobin 7.5(L) 13.3 - 17.7 g/dL 03/08/2024 10:48 PM CDT LABORATORY Blood BLOOD SPECIMEN / Unknown Venipuncture / Unknown 03/08/2024 10:35 PM CDT 03/08/2024 10:45 PM CDT Antonino Cheek MD LAB - BLOOD ORDERABL ES [facility] Lab [address] Lab (1st floor, no room number) [place] [phone] [place] [address] * (ABNORMAL) Glucose by meter (03/08/2024 10:09 PM CDT) GLUCOSE BY METER POCT 116(H) 70 - 99 mg/dL 03/08/2024 10:15 PM CDT LABORATORY POC Blood, Capillary BLOOD SPECIMEN / Unknown 03/08/2024 10:09 PM CDT 03/08/2024 10:15 PM CDT Ron DEAN - BEAKER POCT LABORATORY POC [facility] Lab [address] Lab (1st floor, no room number) [place] [address] * (ABNORMAL) Glucose by meter (03/08/2024 8:11 PM CDT) GLUCOSE BY METER POCT 114(H) 70 - 99 mg/dL 03/08/2024 8:18 PM CDT RH LABORATORY POC Blood, Capillary BLOOD SPECIMEN / Unknown 03/08/2024 8:11 PM CDT 03/08/2024 8:18 PM CDT Narrative Authorizing Provider Result Lauren Tripathi MD LAB - BEAKER POCT Performing Organization Address City/[facility]/ZIP Co de Phone Number LABORATORY [facility] Lab [address] Lab (1st floor, no room number) [place] [phone] * Glucose by meter (03/08/2024 5:59 PM CDT) GLUCOSE BY METER POCT 84 70 - 99 mg/dL 03/08/2024 6:05 PM CDT LABORATORY POC Blood, Capillary BLOOD SPECIMEN / Unknown 03/08/2024 5:59 PM CDT 03/08/2024 6:05 PM CDT Narrative Authorizing Provider Result Lauren DEAN - BEAKER POCT Performing Organization Address City/[facility]/ZIP Co de Phone Number LABORATORY [facility] Lab [address] Lab (1st floor, no room number) [place] [phone] [place] [address] * Glucose by meter (03/08/2024 5:28 PM CDT) GLUCOSE BY METER POCT 99 70 - 99 mg/dL 03/08/2024 5:35 PM CDT RH LABORATORY POC Blood, Capillary BLOOD SPECIMEN / Unknown 03/08/2024 5:28 PM CDT 03/08/2024 5:35 PM CDT Narrative Authorizing Provider Result Lauren DEAN - BEAKER POCT LABORATORY [facility] Lab [address] Lab (1st floor, no room number) [place] [phone] [place] [address] * Glucose by meter (03/08/2024 5:02 PM CDT) GLUCOSE BY METER POCT 79 70 - 99 mg/dL 03/08/2024 5:08 PM CDT RH LABORATORY POC Blood, Capillary BLOOD SPECIMEN / Unknown 03/08/2024 5:02 PM CDT 03/08/2024 5:08 PM CDT Ron DEAN - DAVID POCT Performing Organization Address [facility]/ZIP Co de Phone Number LABORATORY [facility] [address] Lab (1st floor, no room number) [address] [place] [address] * (ABNORMAL) Glucose by meter (03/08/2024 4:36 PM CDT) GLUCOSE BY METER POCT 63(L) 70 - 99 mg/dL 03/08/2024 4:43 PM CDT LABORATORY POC Blood, Capillary BLOOD SPECIMEN / Unknown 03/08/2024 4:36 PM CDT 03/08/2024 4:43 PM CDT Ron DEAN - DAVID POCT Performing Organization Address [facility]/ZIP Co de Phone Number LABORATORY [facility] [address] Lab (1st floor, no room number) [place] [phone] [place] [address] * (ABNORMAL) Glucose by meter (03/08/2024 3:59 PM CDT) GLUCOSE BY METER POCT 68(L) 70 - 99 mg/dL 03/08/2024 4:06 PM CDT LABORATORY POC Blood, Capillary BLOOD SPECIMEN / Unknown 03/08/2024 3:59 PM CDT 03/08/2024 4:06 PM CDT Ron Tripathi MD LAB - BEAKER POCT LABORATORY POC [facility] Lab [address] Lab (1st floor, no room number) [place] [phone] [place] [address] * (ABNORMAL) Hemoglobin (03/08/2024 2:42 PM CDT) Hemoglobin 8.1(L) 13.3 - 17.7 g/dL 03/08/2024 3:25 PM CDT RH LABORATORY Blood VASCULAR LINE / Unknown Venipuncture / Unknown 03/08/2024 2:42 PM CDT 03/08/2024 2:58 PM CDT Antonino Cheek MD LAB - BLOOD ORDERABL ES Performing Organization Address City/[facility]/ZIP Co de Phone Number LABORATORY [facility] Lab [address] Lab (1st floor, no room number) [place] [phone] [place] [address] * (ABNORMAL) Glucose by meter (03/08/2024 2:16 PM CDT) GLUCOSE BY METER POCT 104(H) 70 - 99 mg/dL 03/08/2024 2:23 PM CDT RH LABORATORY POC Comment:Dr/RN Notified Blood, Capillary BLOOD SPECIMEN / Unknown 03/08/2024 2:16 PM CDT 03/08/2024 2:23 PM CDT Ron Tripathi MD LAB - BEAKER POCT LABORATORY POC [facility] Lab [address] Lab (1st floor, no room number) [address] [place] [address] * (ABNORMAL) Glucose by meter (03/08/2024 1:56 PM CDT) GLUCOSE BY METER POCT 52(L) 70 - 99 mg/dL 03/08/2024 2:03 PM CDT RH LABORATORY POC Blood, Capillary BLOOD SPECIMEN / Unknown 03/08/2024 1:56 PM CDT 03/08/2024 2:03 PM CDT Ron DEAN - EVERAKER POCT Performing Organization Address [facility] Co de Phone Number LABORATORY [facility] Lab [address] Lab (1st floor, no room number) [place] [address] * (ABNORMAL) Glucose by meter (03/08/2024 1:36 PM CDT) GLUCOSE BY METER POCT 69(L) 70 - 99 mg/dL 03/08/2024 1:49 PM CDT LABORATORY POC Blood, venous BLOOD SPECIMEN / Unknown 03/08/2024 1:36 PM CDT 03/08/2024 1:49 PM CDT Ron DEAN - DAVID POCT Performing Organization Address [facility] de Phone Number LABORATORY [facility] [address] Lab (1st floor, no room number) [place] [address] * Surgical Pathology Exam (03/08/2024 1:26 PM CDT) Case Report Surgical Pathology Report ? Case: [id number] ? Authorizing Provider: ??Eileen Earl MD ?Collected: ? 03/08/2024 01:26 PM ? Ordering Location: ? [facility] ?Received: ?03/08/2024 02:01 PM ? [facility] ? Pathologist: ? Jae Cardona MD ? Specimen: ?Rectum, Rectum polyp ? 03/09/2024 10:13 AM [facility] Final Diagnosis Rectum, polypectomy: --Hyperplastic polyp. 03/09/2024 10:13 AM [facility] Clinical Information Procedure: Colonoscopy with polypectomy by cold biopsy forceps Pre-op Diagnosis: Anemia, unspecified type [D64.9] Post-op Diagnosis: D64.9 - Anemia, unspecified type [ICD-10-CM] 03/09/2024 10:13 AM [facility] Gross Description A(1). Rectum, Rectum polyp: The specimen is received in formalin, labeled with the patient's name, medical record number and other identifying information and designated ? rectum polyp? . It consists of 2 english soft tissue fragments ranging from 0.1-0.4 cm. Entirely submitted in one cassette. MARY Gates(ASCP)CM 03/08/2024 2:57 PM 03/09/2024 10:13 AM [facility] Microscopic Description Microscopic examination was performed. 03/09/2024 10:13 AM [facility] Performing Labs The technical component of this testing was completed at [facility]. Stain controls for all stains resulted within this report have been reviewed and show appropriate reactivity. 03/09/2024 10:13 AM CDT LABORATORY Case Images 03/09/2024 10:13 AM CDT LABORATORY Polyp RECTUM PART / Unknown 03/08/2024 1:26 PM CDT 03/08/2024 2:01 PM CDT [facility] - [facility] [address] [facility] Lab (1st floor, no room number) [place] [address] * COLONOSCOPY (03/08/2024 1:04 PM CDT) [facility] Signature COLONOSCOPY [facility] Patient Name: Herminio Victor ? Procedure [...] continuously. The ?Olympus Adult Colonoscope, Model # [id number], ?Censitrac # [id number] was introduced through the ?anus and advanced [...] Note Initiated On: 03/08/2024 1:04 PM MRN: ?[id number] Procedure Date: ? 03/08/2024 1:04:50 PM Scope [...] DEAN - DAVID POCT Performing Organization Address City/[facility]/ZIP Co de Phone Number LABORATORY [facility] [address] Lab (1st floor, no room number) [place] [address] * (ABNORMAL) Glucose by meter (03/08/2024 11:11 AM CDT) GLUCOSE BY METER POCT 65(L) 70 - 99 mg/dL 03/08/2024 11:17 AM CDT LABORATORY POC Blood, Capillary BLOOD SPECIMEN / Unknown 03/08/2024 11:11 AM CDT 03/08/2024 11:17 AM CDT Ron DEAN - DAVID POCT Performing Organization Address [facility] Co de Phone Number LABORATORY [facility] [address] Lab (1st floor, no room number) [place] [address] * CONDITIONAL Transfuse red blood [...] CDT Ron HERNANDEZ POCT RH LABORATORY POC [facility] [address] [facility] Lab (1st floor, no room number) [place] [address] * CONDITIONAL Prepare red blood cells (unit) (03/08/2024 7:50 AM CDT) Blood Component Type Red Blood Cells RH BLOOD BANK Product Code [id number] RH BLOO D BANK Unit Status Transfused RH BLOO D BANK Unit Number [id number] RH B LOOD BANK CROSSMATCH Compatible RH BLOOD BANK CODING SYSTEM [id number] RH BLO OD BANK ISSUE DATE AND TIME [id number] RH BLOOD BANK UNIT ABO/RH O+ RH BLOOD BANK UNIT TYPE ISBT 5100 RH BL OOD BANK 03/08/2024 7:50 AM CDT Eileen Earl MD BLOOD BANK PRODUCT ORDERABLES Performing Organization Address [facility] Co de Phone Number RH BLOOD BANK [address] [place] [address] * (ABNORMAL) Renal panel (03/08/2024 6:25 AM CDT) Pathologist [facility] Sodium 128(L) 135 - 145 mmol/L 03/08/2024 [...] MD LAB - BLOOD ORDERA BLES LABORATORY [facility] [address] [employer] Lab (1st floor, no room number) [address] * (ABNORMAL) INR (03/08/2024 6:25 AM CDT) INR 1.18(H) 0.85 - 1.15 03/08/2024 7:03 AM CDT LABORATORY Blood STRUCTURE OF RIGHT UPPER LIMB / Unknown Venipuncture / Unknown 03/08/2024 6:25 AM CDT 03/08/2024 6:39 AM CDT Eileen Earl MD LAB - BLOOD ORDERA BLES LABORATORY [facility] [address] Lab (1st floor, no room number) [place] [phone] * (ABNORMAL) Hemoglobin (03/08/2024 6:25 AM CDT) Hemoglobin 6.7(LL) 13.3 - 17.7 g/dL 03/08/2024 7:01 AM CDT LABORATORY Blood STRUCTURE OF RIGHT UPPER LIMB / Unknown Venipuncture / Unknown 03/08/2024 6:25 AM CDT 03/08/2024 6:39 AM CDT Antonino Cheek MD LAB - BLOOD ORDERABL ES [facility] Lab [address] Lab (1st floor, no room number) [place] [address], [facility] * (ABNORMAL) Glucose by meter (03/08/2024 6:00 AM CDT) GLUCOSE BY METER POCT 111(H) 70 - 99 mg/dL 03/08/2024 6:07 AM CDT LABORATORY POC Blood, Capillary BLOOD SPECIMEN / Unknown 03/08/2024 6:00 AM CDT 03/08/2024 6:07 AM CDT Ron DEAN - BEXIANG POCT Performing Organization Address [facility]/ZIP Co de Phone Number LABORATORY [facility] [address] Lab (1st floor, no room number) [place] [address], [facility] * Glucose by meter (03/08/2024 3:08 AM CDT) GLUCOSE BY METER POCT 90 70 - 99 mg/dL 03/08/2024 3:15 AM CDT LABORATORY POC Blood, Capillary BLOOD SPECIMEN / Unknown 03/08/2024 3:08 AM CDT 03/08/2024 3:15 AM CDT Ron DEAN - BEAKER POCT LABORATORY [facility] Lab [address] Lab (1st floor, no room number) [place] [address], [place] * Glucose by meter (03/08/2024 2:01 AM CDT) GLUCOSE BY METER POCT 76 70 - 99 mg/dL 03/08/2024 2:07 AM CDT RH LABORATORY POC Blood, Capillary BLOOD SPECIMEN / Unknown 03/08/2024 2:01 AM CDT 03/08/2024 2:07 AM CDT Ron Tripathi MD LAB - BEAKER POCT LABORATORY POC [facility] [address] Lab (1st floor, no room number) [address] * (ABNORMAL) Hemoglobin (03/08/2024 1:12 AM CDT) Hemoglobin 7.6(L) 13.3 - 17.7 g/dL 03/08/2024 1:33 AM CDT LABORATORY Blood STRUCTURE OF LEFT HAND / Unknown Venipuncture / Unknown 03/08/2024 1:12 AM CDT 03/08/2024 1:30 AM CDT Antonino Cheek MD LAB - BLOOD ORDERABL ES Performing Organization Address City/[facility]/ZIP Co de Phone Number LABORATORY [facility] [address] Lab (1st floor, no room number) [place] [phone] [place] [address] * US Upper Extremity Venous Duplex Right [...] US UPPER EXTREMITY VENOUS DUPLEX RIGHT LOCATION: [facility] DATE: 03/07/2024 INDICATION: Swelling, looking for [...] US UPPER EXTREMITY VENOUS DUPLEX RIGHT LOCATION: [facility] DATE: 03/07/2024 INDICATION: Swelling, looking for [...] theproximal to distal forearm. Antonino Cheek MD [facility] ORDERABLES * Glucose by meter (03/07/2024 9:31 PM CDT) [facility] GLUCOSE BY METER POCT 90 70 - 99 mg/dL 03/07/2024 9:38 PM CDT LABORATORY POC Blood, Capillary BLOOD SPECIMEN / Unknown 03/07/2024 9:31 PM CDT 03/07/2024 9:38 PM CDT Ron Tripathi MD LAB - [facility] POCT LABORATORY [facility] Lab [address] Lab (1st floor, no room number) [place] [address], [facility] * (ABNORMAL) Hemoglobin (03/07/2024 6:58 PM CDT) Hemoglobin 8.6(L) 13.3 - 17.7 g/dL 03/07/2024 8:44 PM CDT LABORATORY Blood STRUCTURE OF RIGHT HAND / Unknown Venipuncture / Unknown 03/07/2024 6:58 PM CDT 03/07/2024 7:06 PM CDT Antonino Cheek MD LAB - BLOOD ORDERABL ES [facility] Lab [address] Lab (1st floor, no room number) [place] [phone] [place] [address] * Glucose by meter (03/07/2024 6:56 PM CDT) GLUCOSE BY METER POCT 86 70 - 99 mg/dL 03/07/2024 7:03 PM CDT LABORATORY POC Blood, Capillary BLOOD SPECIMEN / Unknown 03/07/2024 6:56 PM CDT 03/07/2024 7:03 PM CDT Ron DEAN - BEAKER POCT LABORATORY [facility] [address] Lab (1st floor, no room number) [place] [phone] * Glucose by meter (03/07/2024 5:03 PM CDT) GLUCOSE BY METER POCT 79 70 - 99 mg/dL 03/07/2024 5:10 PM CDT LABORATORY POC Blood, Capillary BLOOD SPECIMEN / Unknown 03/07/2024 5:03 PM CDT 03/07/2024 5:10 PM CDT Ron DEAN - BEAKER POCT LABORATORY [facility] Lab [address] Lab (1st floor, no room number) [place] [address] * Single Lumen Midline Placement (03/07/2024 1:34 PM CDT) Patricio Peters RN - 03/07/2024 1:34 PM CDT Patricio Bocanegra RN ? 03/07/2024 ??1:41 PM [facility] Single Lumen Midline Placement Date/Time: 03/07/2024 1:34 PM Performed by: Patricio Bocanegra RN Authorized by: Antonino Cehek MD ??Indications: vascular access UNIVERSAL PROTOCOL Site [...] procedure a time out was called ?? [place] Protocol: the Joint Commission [place] Protocol was followed ?? Preparation: Patient was [...] size: 4 Fr Brand: Bard Lot number: [id number] Placement method: venipuncture, MST and ultrasound Number [...] 03/07/2024 11:37 AM CDT Ron DEAN - [employer] POCT LABORATORY [facility] [address] Lab (1st floor, no room number) [address] [place] [address] * Glucose by meter (03/07/2024 8:49 AM CDT) GLUCOSE BY METER POCT 77 70 - 99 mg/dL 03/07/2024 8:56 AM CDT LABORATORY POC Blood, Capillary BLOOD SPECIMEN / Unknown 03/07/2024 8:49 AM CDT 03/07/2024 8:56 AM CDT Ron Tripathi MD LAB - BEAKER POCT LABORATORY [facility] [address] Lab (1st floor, no room number) [address] * (ABNORMAL) Renal panel (03/07/2024 6:21 [...] MD LAB - BLOOD ORDERA BLES LABORATORY [facility] [address] Lab (1st floor, no room number) [place], [address] * (ABNORMAL) INR (03/07/2024 6:21 AM CDT) INR 1.28(H) 0.85 - 1.15 03/07/2024 7:17 AM CDT RH LABORATORY Blood BLOOD SPECIMEN / Unknown Venipuncture / Unknown 03/07/2024 6:21 AM CDT 03/07/2024 7:06 AM CDT Eileen Earl MD LAB - BLOOD ORDERA BLES [facility] Lab [address] Lab (1st floor, no room number) [place] [phone] [place] [address] * (ABNORMAL) Hemoglobin (03/07/2024 6:21 AM CDT) Hemoglobin 7.8(L) 13.3 - 17.7 g/dL 03/07/2024 7:11 AM CDT RH LABORATORY Blood BLOOD SPECIMEN / Unknown Venipuncture / Unknown 03/07/2024 6:21 AM CDT 03/07/2024 7:06 AM CDT Eileen Earl MD LAB - BLOOD ORDERA BLES Performing Organization Address City/[facility]/ZIP Co de Phone Number [facility] Lab [address] Lab (1st floor, no room number) [place] [phone] * Glucose by meter (03/07/2024 6:19 AM CDT) GLUCOSE BY METER POCT 98 70 - 99 mg/dL 03/07/2024 6:26 AM CDT LABORATORY POC Blood, Capillary BLOOD SPECIMEN / Unknown 03/07/2024 6:19 AM CDT 03/07/2024 6:26 AM CDT Ron Tripathi MD LAB - BEAKER POCT LABORATORY POC [facility] Lab [address] Lab (1st floor, no room number) [address] * Glucose by meter (03/07/2024 4:05 AM CDT) GLUCOSE BY METER POCT 78 70 - 99 mg/dL 03/07/2024 4:11 AM CDT RH LABORATORY POC Blood, Capillary BLOOD SPECIMEN / Unknown 03/07/2024 4:05 AM CDT 03/07/2024 4:11 AM CDT Ron DEAN - BEXIANG POCT LABORATORY [facility] [address] Lab (1st floor, no room number) [address] * (ABNORMAL) Hemoglobin (03/07/2024 1:04 AM CDT) Hemoglobin 7.6(L) 13.3 - 17.7 g/dL 03/07/2024 1:17 AM CDT RH LABORATORY Blood STRUCTURE OF LEFT HAND / Unknown Venipuncture / Unknown 03/07/2024 1:04 AM CDT 03/07/2024 1:14 AM CDT Eileen Earl MD LAB - BLOOD ORDERA BLES [facility] Lab [address] Lab (1st floor, no room number) [place] [id number] * (ABNORMAL) Glucose by meter (03/07/2024 12:40 AM CDT) GLUCOSE BY METER POCT 116(H) 70 - 99 mg/dL 03/07/2024 12:48 AM CDT RH LABORATORY POC Blood, Capillary BLOOD SPECIMEN / Unknown 03/07/2024 12:40 AM CDT 03/07/2024 12:48 AM CDT Ron DEAN - DAVID POCT Performing Organization Address [facility]/ZIP Co de Phone Number LABORATORY [facility] Lab [address] Lab (1st floor, no room number) [place] [phone] [place] [address] * (ABNORMAL) Glucose by meter (03/06/2024 9:36 PM CDT) GLUCOSE BY METER POCT 112(H) 70 - 99 mg/dL 03/06/2024 9:44 PM CDT RH LABORATORY POC Blood, Capillary BLOOD SPECIMEN / Unknown 03/06/2024 9:36 PM CDT 03/06/2024 9:44 PM CDT Ron HERNANDEZ POCT Performing Organization Address [facility]/ZIP Co de Phone Number LABORATORY [facility] Care Lab [address] Lab (1st floor, no room number) [place] [phone] [place] [address] * Extra Serum Separator Tube (SST) (03/06/2024 7:55 PM CDT) Hold Specimen JIC 03/06/2024 9:03 PM CDT LABORATORY Blood BLOOD SPECIMEN / Unknown Venipuncture / Unknown 03/06/2024 7:55 PM CDT 03/06/2024 7:55 PM CDT Ron Tripathi MD LAB - BLOOD ORDERABL ES Performing Organization Address [facility]/ZIP Co de Phone Number [facility] Lab [address] Lab (1st floor, no room number) [place] [phone] [place] [address] * (ABNORMAL) Glucose by meter (03/06/2024 6:37 PM CDT) GLUCOSE BY METER POCT 112(H) 70 - 99 mg/dL 03/06/2024 6:45 PM CDT RH LABORATORY POC Blood, Capillary BLOOD SPECIMEN / Unknown 03/06/2024 6:37 PM CDT 03/06/2024 6:45 PM CDT Ron Tripathi MD LAB - [facility] POCT RH LABORATORY [facility] Care Lab [address] Lab (1st floor, no room number) [place] [address], [facility] * (ABNORMAL) CBC [...] Cheek MD LAB - BLOOD ORDERABL ES [facility] Lab [address] [employer] Lab (1st floor, no room number) [place] [address] * (ABNORMAL) Glucose (03/06/2024 4:28 PM CDT) Glucose 196(H) 70 - 99 mg/dL 03/06/2024 4:54 PM CDT RH LABORATORY Blood STRUCTURE OF LEFT UPPER LIMB / Unknown Venipuncture / Unknown 03/06/2024 4:28 PM CDT 03/06/2024 4:32 PM CDT Antonino Cheek MD LAB - BLOOD ORDERABL ES [facility] [address] Lab (1st floor, no room number) [place] [address], [facility] * (ABNORMAL) Basic metabolic panel (03/06/2024 [...] MD LAB - BLOOD ORDERABL ES LABORATORY [facility] [address] [facility] Lab (1st floor, no room number) [place] [address], [facility] * (ABNORMAL) Hemoglobin (03/06/2024 4:28 PM CDT) Hemoglobin 7.4(L) 13.3 - 17.7 g/dL 03/06/2024 4:47 PM CDT LABORATORY Blood STRUCTURE OF LEFT UPPER LIMB / Unknown Venipuncture / Unknown 03/06/2024 4:28 PM CDT 03/06/2024 4:33 PM CDT Eileen Earl MD LAB - BLOOD ORDERA BLES [facility] [address] Lab (1st floor, no room number) [address] [place] [address] * (ABNORMAL) Glucose by meter (03/06/2024 4:26 PM CDT) GLUCOSE BY METER POCT 196(H) 70 - 99 mg/dL 03/06/2024 4:33 PM CDT LABORATORY POC Blood, Capillary BLOOD SPECIMEN / Unknown 03/06/2024 4:26 PM CDT 03/06/2024 4:33 PM CDT Ron DEAN - DAVID POCT Performing Organization Address City/[facility]/ZIP Co de Phone Number LABORATORY [facility] [address] Lab (1st floor, no room number) [place] [phone] [place] [address] * (ABNORMAL) Glucose by meter (03/06/2024 4:17 PM CDT) GLUCOSE BY METER POCT 38(LL) 70 - 99 mg/dL 03/06/2024 4:24 PM CDT LABORATORY POC Comment:Dr/RN Notified Blood, Capillary BLOOD SPECIMEN / Unknown 03/06/2024 4:17 PM CDT 03/06/2024 4:24 PM CDT Ron DEAN - BEXIANG POCT LABORATORY [facility] [address] Lab (1st floor, no room number) [place] [phone] * (ABNORMAL) Glucose by meter (03/06/2024 4:10 PM CDT) GLUCOSE BY METER POCT 47(LL) 70 - 99 mg/dL 03/19/2024 8:02 AM CDT LABORATORY POC Comment:Dr/RN Notified Blood, Capillary BLOOD SPECIMEN / Unknown 03/06/2024 4:10 PM CDT 03/19/2024 8:02 AM CDT Ron Tripathi MD LAB - BEAKER POCT LABORATORY [facility] [address] Lab (1st floor, no room number) [place] [address] * (ABNORMAL) Glucose by meter (03/06/2024 3:18 PM CDT) GLUCOSE BY METER POCT 64(L) 70 - 99 mg/dL 03/06/2024 3:26 PM CDT LABORATORY POC Blood, Capillary BLOOD SPECIMEN / Unknown 03/06/2024 3:18 PM CDT 03/06/2024 3:26 PM CDT Ron DEAN - BEAKER POCT LABORATORY [facility] [address] Lab (1st floor, no room number) [place] [phone] * (ABNORMAL) Glucose by meter (03/06/2024 3:03 PM CDT) GLUCOSE BY METER POCT 63(L) 70 - 99 mg/dL 03/06/2024 3:11 PM CDT LABORATORY POC Blood, Capillary BLOOD SPECIMEN / Unknown 03/06/2024 3:03 PM CDT 03/06/2024 3:11 PM CDT Ron Tripathi MD LAB - BEAKER POCT LABORATORY POC [facility] [address] Lab (1st floor, no room number) [place] [address] * (ABNORMAL) Hemoglobin - Pre-Op (03/06/2024 1:23 PM CDT) Hemoglobin 7.6(L) 13.3 - 17.7 g/dL 03/06/2024 1:39 PM CDT LABORATORY Blood STRUCTURE OF RIGHT UPPER LIMB / Unknown Venipuncture / Unknown 03/06/2024 1:23 PM CDT 03/06/2024 1:34 PM CDT Antonino Cheek MD LAB - BLOOD ORDERABL ES LABORATORY [facility] [address] Lab (1st floor, no room number) [place] [address] * UPPER GI ENDOSCOPY (03/06/2024 1:21 PM CDT) Upper GI Endoscopy [facility] Patient Name: Herminio Victor ? Procedure [...] ?Olympus Gastroscope, Model # [id number]-H190, Censitrac # [id number] was introduced through the mouth, and ?advanced [...] Note Initiated On: 03/06/2024 1:21 PM MRN: ?[id number] Procedure Date: ? 03/06/2024 1:21:29 PM Total [...] LAB - DAVID POCT Performing Organization Address City/[facility]/ZIP Co de Phone Number LABORATORY POC [facility] [address] Lab (1st floor, no room number) [place] [address] * Transfuse red blood cells [...] LAB - BEAKER POCT RH LABORATORY POC [facility] [address] Lab (1st floor, no room number) [place] [address], [facility] * Adult Type and Screen (03/06/2024 8:53 AM CDT) ABO/RH(D) O POS 03/06/2024 7:57 AM CDT RH BLOOD BANK Antibody Screen Negative Negative 03/06/2024 7:57 AM CDT RH BLOOD BANK SPECIMEN EXPIRATION DATE [id number] 03/06/2024 7:57 AM CDT RH BLOOD BANK Blood STRUCTURE OF RIGHT HAND / Unknown Venipuncture / Unknown 03/06/2024 8:53 AM CDT 03/06/2024 9:00 AM CDT Antonino Cheek MD LAB - BLOOD BANK SHANNON T ORDER RH BLOOD BANK [address] [place] [address] * Glucose by meter (03/06/2024 7:57 AM CDT) GLUCOSE BY METER POCT 87 70 - 99 mg/dL 03/06/2024 8:04 AM CDT RH LABORATORY POC Blood, Capillary BLOOD SPECIMEN / Unknown 03/06/2024 7:57 AM CDT 03/06/2024 8:04 AM CDT Ron Tripathi MD LAB - BEAKER POCT RH LABORATORY POC [facility] [address] Lab (1st floor, no room number) [place] [address] * Prepare red blood cells (unit) (03/06/2024 7:50 AM CDT) Blood Component Type Red Blood Cells RH BLOOD BANK Product Code [id number] RH BLOO D BANK Unit Status Transfused RH BLOO D BANK Unit Number [id number] RH B LOOD BANK CROSSMATCH Compatible RH BLOOD BANK CODING SYSTEM [id number] RH BLO OD BANK ISSUE DATE AND TIME [id number] RH BLOOD BANK UNIT ABO/RH O+ RH BLOOD BANK UNIT TYPE ISBT 5100 RH BL OOD BANK 03/06/2024 7:50 AM CDT Antonino Cheek MD BLOOD BANK PRODUCT O RDERABLES BLOOD BANK [place] [address], [facility] * (ABNORMAL) Renal [...] - BLOOD ORDERA BLES Performing Organization Address City/[facility]/ZIP Co de Phone Number [facility] [address] Lab (1st floor, no room number) [place] [address] * (ABNORMAL) Hemoglobin (03/06/2024 6:54 AM CDT) Hemoglobin 7.0(L) 13.3 - 17.7 g/dL 03/06/2024 7:04 AM CDT LABORATORY Blood STRUCTURE OF RIGHT HAND / Unknown Venipuncture / Unknown 03/06/2024 6:54 AM CDT 03/06/2024 7:00 AM CDT Antonino Cheek MD LAB - BLOOD ORDERABL ES Performing Organization Address [facility]/ZIP Co de Phone Number [facility] [address] Lab (1st floor, no room number) [place] [address], [facility] * (ABNORMAL) INR (03/06/2024 6:54 AM CDT) INR 1.51(H) 0.85 - 1.15 03/06/2024 7:19 AM CDT LABORATORY Blood STRUCTURE OF RIGHT HAND / Unknown Venipuncture / Unknown 03/06/2024 6:54 AM CDT 03/06/2024 7:00 AM CDT Eileen Earl MD LAB - BLOOD ORDERA BLES Performing Organization Address City/[facility]/ZIP Co de Phone Number [facility] [address] Lab (1st floor, no room number) [place] [address], [facility] * Glucose by meter (03/06/2024 4:05 AM CDT) GLUCOSE BY METER POCT 90 70 - 99 mg/dL 03/06/2024 4:21 AM CDT LABORATORY POC Blood, Capillary BLOOD SPECIMEN / Unknown 03/06/2024 4:05 AM CDT 03/06/2024 4:21 AM CDT Narrative Authorizing Provider Result Lauren Tripathi MD LAB - BEAKER POCT LABORATORY [facility] Lab [address] Lab (1st floor, no room number) [place] [address], [place] * (ABNORMAL) Glucose by meter (03/06/2024 12:01 AM CDT) GLUCOSE BY METER POCT 101(H) 70 - 99 mg/dL 03/06/2024 12:13 AM CDT LABORATORY POC Blood, Capillary BLOOD SPECIMEN / Unknown 03/06/2024 12:01 AM CDT 03/06/2024 12:13 AM CDT Narrative Authorizing Provider Result Lauren DEAN - BEAKER POCT LABORATORY [facility] [address] Lab (1st floor, no room number) [place] [address], [facility] * Glucose by meter (03/05/2024 10:01 PM CDT) GLUCOSE BY METER POCT 87 70 - 99 mg/dL 03/05/2024 10:09 PM CDT LABORATORY POC Blood, Capillary BLOOD SPECIMEN / Unknown 03/05/2024 10:01 PM CDT 03/05/2024 10:09 PM CDT Narrative Authorizing Provider Result Lauren DEAN - BEAKER POCT LABORATORY [facility] [address] Lab (1st floor, no room number) [place] [address], [facility] * (ABNORMAL) Hemoglobin (03/05/2024 6:53 PM CDT) Hemoglobin 8.4(L) 13.3 - 17.7 g/dL 03/05/2024 7:07 PM CDT RH LABORATORY Blood STRUCTURE OF LEFT HAND / Unknown Venipuncture / Unknown 03/05/2024 6:53 PM CDT 03/05/2024 7:02 PM CDT Antonino Cheek MD LAB - BLOOD ORDERABL ES Performing Organization Address City/[facility]/ZIP Co de Phone Number [facility] [address] Lab (1st floor, no room number) [address] [place] [address] * Glucose by meter (03/05/2024 5:47 PM CDT) GLUCOSE BY METER POCT 96 70 - 99 mg/dL 03/05/2024 5:54 PM CDT RH LABORATORY POC Blood, Capillary BLOOD SPECIMEN / Unknown 03/05/2024 5:47 PM CDT 03/05/2024 5:54 PM CDT Ron Tripathi MD LAB - BEAKER POCT Performing Organization Address City/[facility]/ZIP Co de Phone Number LABORATORY [facility] [address] Lab (1st floor, no room number) [address] * CONDITIONAL Transfuse red blood cells (unit) 1; No special requirements (03/05/2024 4:07 PM CDT) Eileen Earl MD BLOOD TRANSFUSION ORDERABLES * CONDITIONAL Prepare red blood cells (unit) (03/05/2024 12:47 PM CDT) Blood Component Type Red Blood Cells RH BLOOD BANK Product Code [id number] RH BLOO D BANK Unit Status Transfused RH BLOO D BANK Unit Number [id number] RH B LOOD BANK CROSSMATCH Compatible RH BLOOD BANK CODING SYSTEM [id number] RH BLO OD BANK ISSUE DATE AND TIME [id number] RH BLOOD BANK UNIT ABO/RH O+ RH BLOOD BANK UNIT TYPE ISBT 5100 RH BL OOD BANK 03/05/2024 12:4 7 PM CDT Ron Tripathi MD BLOOD BANK PRODUCT O RDERABLES Performing Organization Address [facility] Co de Phone Number BLOOD BANK [address] [place] [address] * (ABNORMAL) Hemoglobin (03/05/2024 12:12 PM CDT) Hemoglobin 6.9(LL) 13.3 - 17.7 g/dL 03/05/2024 12:40 PM CDT LABORATORY Blood STRUCTURE OF LEFT HAND / Unknown Venipuncture / Unknown 03/05/2024 12:12 PM CDT 03/05/2024 12:21 PM CDT Antonino Cheek MD LAB - BLOOD ORDERABL ES Performing Organization Address [facility] Co de Phone Number LABORATORY [facility] [address] Lab (1st floor, no room number) [place] [phone], [facility] * (ABNORMAL) Glucose by meter (03/05/2024 12:06 PM CDT) GLUCOSE BY METER POCT 107(H) 70 - 99 mg/dL 03/05/2024 12:13 PM CDT LABORATORY POC Blood, Capillary BLOOD SPECIMEN / Unknown 03/05/2024 12:06 PM CDT 03/05/2024 12:13 PM CDT Ron Tripathi MD LAB - BEAKER POCT Performing Organization Address [facility]/ZIP Co de Phone Number LABORATORY POC [facility] Lab [address] Lab (1st floor, no room number) [place] [phone], [facility] * Glucose by meter (03/05/2024 7:58 AM CDT) GLUCOSE BY METER POCT 83 70 - 99 mg/dL 03/05/2024 8:04 AM CDT LABORATORY POC Blood, Capillary BLOOD SPECIMEN / Unknown 03/05/2024 7:58 AM CDT 03/05/2024 8:04 AM CDT Ron DEAN - DAVID POCT LABORATORY [facility] [address] Lab (1st floor, no room number) [place] [address] * (ABNORMAL) Hemoglobin (03/05/2024 7:35 AM CDT) Hemoglobin 7.1(L) 13.3 - 17.7 g/dL 03/05/2024 8:01 AM CDT LABORATORY Blood STRUCTURE OF LEFT HAND / Unknown Venipuncture / Unknown 03/05/2024 7:35 AM CDT 03/05/2024 7:57 AM CDT Aashish Romero DO LAB - BLOOD ORDER NADIA Performing Organization Address City/[facility]/ZIP Co de Phone Number [facility] [address] Lab (1st floor, no room number) [place] [phone] [place] [address] * (ABNORMAL) INR (03/05/2024 7:35 AM CDT) INR 2.20(H) 0.85 - 1.15 03/05/2024 8:13 AM CDT LABORATORY Blood STRUCTURE OF LEFT HAND / Unknown Venipuncture / Unknown 03/05/2024 7:35 AM CDT 03/05/2024 7:57 AM CDT Eileen Earl MD LAB - BLOOD ORDERA BLES [facility] [address] Lab (1st floor, no room number) [place] [phone] * (ABNORMAL) Comprehensive metabolic panel (03/05/2024 7:35 [...] LAB - BLOOD ORDER NADIA RH LABORATORY [facility] [address] [facility] ([facility], no room number) [place] [address] * (ABNORMAL) CBC with platelets [...] Romero DO LAB - BLOOD ORDER NADIA [facility] [address] Lab (1st floor, no room number) [place] [address], [facility] * (ABNORMAL) Glucose by meter (03/05/2024 4:09 AM CDT) GLUCOSE BY METER POCT 107(H) 70 - 99 mg/dL 03/05/2024 4:16 AM CDT LABORATORY POC Blood, Capillary BLOOD SPECIMEN / Unknown 03/05/2024 4:09 AM CDT 03/05/2024 4:16 AM CDT Ron DEAN - BEXIANG POCT Performing Organization Address City/[facility]/ZIP Co de Phone Number LABORATORY [facility] [address] Lab (1st floor, no room number) [place] [address], [facility] * (ABNORMAL) Glucose by meter (03/05/2024 3:22 AM CDT) GLUCOSE BY METER POCT 115(H) 70 - 99 mg/dL 03/05/2024 3:30 AM CDT LABORATORY POC Blood, Capillary BLOOD SPECIMEN / Unknown 03/05/2024 3:22 AM CDT 03/05/2024 3:30 AM CDT Ron DEAN - BEAKER POCT LABORATORY [facility] [address] Lab (1st floor, no room number) [place] [address] * (ABNORMAL) Glucose by meter (03/05/2024 12:07 AM CDT) GLUCOSE BY METER POCT 118(H) 70 - 99 mg/dL 03/05/2024 12:14 AM CDT RH LABORATORY POC Blood, Capillary BLOOD SPECIMEN / Unknown 03/05/2024 12:07 AM CDT 03/05/2024 12:14 AM CDT Ron Tripathi MD LAB - BEAKER POCT LABORATORY [facility] [address] Lab (1st floor, no room number) [address] [place] [address] * (ABNORMAL) Glucose by meter (03/04/2024 9:37 PM CDT) GLUCOSE BY METER POCT 132(H) 70 - 99 mg/dL 03/04/2024 9:45 PM CDT LABORATORY POC Blood, Capillary BLOOD SPECIMEN / Unknown 03/04/2024 9:37 PM CDT 03/04/2024 9:45 PM CDT Ron DEAN - BEAKER POCT LABORATORY [facility] [address] Lab (1st floor, no room number) [address] [place] [address] * (ABNORMAL) Glucose by meter (03/04/2024 8:34 PM CDT) GLUCOSE BY METER POCT 122(H) 70 - 99 mg/dL 03/04/2024 8:41 PM CDT LABORATORY POC Blood, Capillary BLOOD SPECIMEN / Unknown 03/04/2024 8:34 PM CDT 03/04/2024 8:41 PM CDT Ron DEAN - BEAKER POCT LABORATORY [facility] [address] Lab (1st floor, no room number) [address] * (ABNORMAL) Potassium (03/04/2024 6:29 PM CDT) Potassium 5.6(H) 3.4 - 5.3 mmol/L 03/04/2024 7:00 PM CDT RH LABORATORY Blood STRUCTURE OF LEFT HAND / Unknown Venipuncture / Unknown 03/04/2024 6:29 PM CDT 03/04/2024 6:37 PM CDT Job Her MD LAB - BLOOD ORDERABL ES [facility] [address] Lab (1st floor, no room number) [address] * (ABNORMAL) Hemoglobin (03/04/2024 6:29 PM CDT) Hemoglobin 7.7(L) 13.3 - 17.7 g/dL 03/04/2024 6:41 PM CDT LABORATORY Blood STRUCTURE OF LEFT HAND / Unknown Venipuncture / Unknown 03/04/2024 6:29 PM CDT 03/04/2024 6:37 PM CDT Aashish Romero DO LAB - BLOOD ORDER NADIA [facility] [address] Lab (1st floor, no room number) [address] * Glucose by meter (03/04/2024 5:44 PM CDT) GLUCOSE BY METER POCT 93 70 - 99 mg/dL 03/04/2024 5:51 PM CDT LABORATORY POC Blood, Capillary BLOOD SPECIMEN / Unknown 03/04/2024 5:44 PM CDT 03/04/2024 5:51 PM CDT Ron Tripathi MD LAB - BEAKER POCT Performing Organization Address City/[facility]/ZIP Co de Phone Number LABORATORY [facility] [address] Lab (1st floor, no room number) [place] [phone] [place] [address] * Glucose by meter (03/04/2024 3:12 PM CDT) GLUCOSE BY METER POCT 96 70 - 99 mg/dL 03/04/2024 3:19 PM CDT RH LABORATORY POC Blood, Capillary BLOOD SPECIMEN / Unknown 03/04/2024 3:12 PM CDT 03/04/2024 3:19 PM CDT Ron DEAN - DAVID POCT Performing Organization Address [facility]/ZIP Co de Phone Number LABORATORY [facility] [address] Lab (1st floor, no room number) [place] [phone] [place] [address] * Glucose by meter (03/04/2024 1:46 PM CDT) GLUCOSE BY METER POCT 86 70 - 99 mg/dL 03/04/2024 1:53 PM CDT LABORATORY POC Blood, Capillary BLOOD SPECIMEN / Unknown 03/04/2024 1:46 PM CDT 03/04/2024 1:53 PM CDT Ron DEAN - DAVID POCT Performing Organization Address City/[facility]/ZIP Co de Phone Number LABORATORY [facility] [address] Lab (1st floor, no room number) [place] [phone] [place] [address] * (ABNORMAL) Glucose by meter (03/04/2024 1:09 PM CDT) GLUCOSE BY METER POCT 67(L) 70 - 99 mg/dL 03/04/2024 1:15 PM CDT LABORATORY POC Blood, Capillary BLOOD SPECIMEN / Unknown 03/04/2024 1:09 PM CDT 03/04/2024 1:15 PM CDT Ron Tripathi MD LAB - BEAKER POCT LABORATORY [facility] [address] Lab (1st floor, no room number) [place] [address], [place] * (ABNORMAL) Glucose by meter (03/04/2024 11:59 AM CDT) GLUCOSE BY METER POCT 69(L) 70 - 99 mg/dL 03/04/2024 12:06 PM CDT RH LABORATORY POC Blood, Capillary BLOOD SPECIMEN / Unknown 03/04/2024 11:59 AM CDT 03/04/2024 12:06 PM CDT Ron Tripathi MD LAB - BEAKER POCT Performing Organization Address City/[facility]/ZIP Co de Phone Number LABORATORY [facility] [address] Lab (1st floor, no room number) [place] [phone] * Glucose by meter (03/04/2024 10:47 AM CDT) GLUCOSE BY METER POCT 74 70 - 99 mg/dL 03/04/2024 11:06 AM CDT LABORATORY POC Blood, Capillary BLOOD SPECIMEN / Unknown 03/04/2024 10:47 AM CDT 03/04/2024 11:06 AM CDT Ron DEAN - BEAKER POCT LABORATORY [facility] [address] Lab (1st floor, no room number) [place] [phone], [facility] * Glucose by meter (03/04/2024 8:58 AM CDT) GLUCOSE BY METER POCT 81 70 - 99 mg/dL 03/04/2024 9:06 AM CDT RH LABORATORY POC Blood, Capillary BLOOD SPECIMEN / Unknown 03/04/2024 8:58 AM CDT 03/04/2024 9:06 AM CDT Ron Tripathi MD LAB - BEAKER POCT LABORATORY [facility] Lab [address] Lab (1st floor, no room number) [place] [phone] * Glucose by meter (03/04/2024 7:03 AM CDT) GLUCOSE BY METER POCT 76 70 - 99 mg/dL 03/04/2024 7:10 AM CDT LABORATORY POC Blood, Capillary BLOOD SPECIMEN / Unknown 03/04/2024 7:03 AM CDT 03/04/2024 7:10 AM CDT Ron Tripathi MD LAB - BEAKER POCT Performing Organization Address [facility]/ZIP Co de Phone Number LABORATORY [facility] [address] Lab (1st floor, no room number) [place] [phone] [place] [address] * (ABNORMAL) Comprehensive metabolic panel (03/04/2024 6:45 [...] DO LAB - BLOOD ORDER NADIA LABORATORY [facility] [address] Lab (1st floor, no room number) [place] [address] * (ABNORMAL) CBC with platelets [...] LAB - BLOOD ORDER NADIA RH LABORATORY [facility] [address] Lab (1st floor, no room number) [place] [address] * (ABNORMAL) Hemoglobin (03/04/2024 6:45 AM CDT) Hemoglobin 7.1(L) 13.3 - 17.7 g/dL 03/04/2024 6:57 AM CDT RH LABORATORY Blood STRUCTURE OF RIGHT UPPER LIMB / Unknown Venipuncture / Unknown 03/04/2024 6:45 AM CDT 03/04/2024 6:54 AM CDT Ron Tripathi MD LAB - BLOOD ORDERABL ES LABORATORY [facility] [address] Lab (1st floor, no room number) [place] [address], [facility] * Cortisol (03/04/2024 [...] DO LAB - BLOOD ORDER NADIA LABORATORY [facility] [address] [facility], [address] [place] [address] * Glucose by meter (03/04/2024 5:08 AM CDT) GLUCOSE BY METER POCT 93 70 - 99 mg/dL 03/04/2024 5:15 AM CDT LABORATORY POC Blood, Capillary BLOOD SPECIMEN / Unknown 03/04/2024 5:08 AM CDT 03/04/2024 5:15 AM CDT Ron Tripathi MD LAB - BEAKER POCT LABORATORY POC [facility] [address] Lab (1st floor, no room number) [place] [address], [facility] * (ABNORMAL) Glucose by meter (03/04/2024 3:28 AM CDT) GLUCOSE BY METER POCT 116(H) 70 - 99 mg/dL 03/04/2024 3:36 AM CDT RH LABORATORY POC Blood, Capillary BLOOD SPECIMEN / Unknown 03/04/2024 3:28 AM CDT 03/04/2024 3:36 AM CDT Ron DEAN - BEAKER POCT LABORATORY [facility] Lab [address] Lab (1st floor, no room number) [place] [address], [facility] * Glucose by meter (03/04/2024 2:12 AM CDT) GLUCOSE BY METER POCT 77 70 - 99 mg/dL 03/04/2024 2:20 AM CDT RH LABORATORY POC Comment:Dr/RN Notified Blood, Capillary BLOOD SPECIMEN / Unknown 03/04/2024 2:12 AM CDT 03/04/2024 2:20 AM CDT Narrative Authorizing Provider Result Lauren DEAN - DAVID POCT Performing Organization Address City/[facility]/ZIP Co de Phone Number LABORATORY [facility] [address] Lab (1st floor, no room number) [place] [address], [facility] * Glucose by meter (03/04/2024 12:25 AM CDT) GLUCOSE BY METER POCT 96 70 - 99 mg/dL 03/04/2024 12:32 AM CDT LABORATORY POC Blood, Capillary BLOOD SPECIMEN / Unknown 03/04/2024 12:25 AM CDT 03/04/2024 12:32 AM CDT Narrative Authorizing Provider Result Lauren DEAN - BEAKER POCT LABORATORY [facility] Lab [address] Lab (1st floor, no room number) [address] * (ABNORMAL) Hemoglobin (03/03/2024 9:40 PM CDT) Hemoglobin 7.2(L) 13.3 - 17.7 g/dL 03/03/2024 9:53 PM CDT LABORATORY Blood STRUCTURE OF RIGHT UPPER LIMB / Unknown Venipuncture / Unknown 03/03/2024 9:40 PM CDT 03/03/2024 9:50 PM CDT Ron Tripathi MD LAB - BLOOD ORDERABL ES LABORATORY [facility] [address] [facility], no room number[facility] [address] * (ABNORMAL) Glucose by meter (03/03/2024 8:13 PM CDT) GLUCOSE BY METER POCT 144(H) 70 - 99 mg/dL 03/03/2024 8:20 PM CDT LABORATORY POC Blood, Capillary BLOOD SPECIMEN / Unknown 03/03/2024 8:13 PM CDT 03/03/2024 8:20 PM CDT Narrative Authorizing Provider Result Lauren Tripathi MD LAB - BEAKER POCT LABORATORY POC [facility] [address] Lab (1st floor, no room number) [address] * (ABNORMAL) Glucose by meter (03/03/2024 6:23 PM CDT) GLUCOSE BY METER POCT 110(H) 70 - 99 mg/dL 03/03/2024 6:29 PM CDT LABORATORY POC Blood, Capillary BLOOD SPECIMEN / Unknown 03/03/2024 6:23 PM CDT 03/03/2024 6:29 PM CDT Narrative Authorizing Provider Result Lauren Tripathi MD LAB - BEAKER POCT LABORATORY [facility] Lab [address] Lab (1st floor, no room number) [place] [address] * (ABNORMAL) Glucose by meter (03/03/2024 5:39 PM CDT) GLUCOSE BY METER POCT 57(L) 70 - 99 mg/dL 03/03/2024 5:45 PM CDT [facility] LABORATORY POC Blood, Capillary BLOOD SPECIMEN / Unknown 03/03/2024 5:39 PM CDT 03/03/2024 5:45 PM CDT Ron DEAN - [facility]CT LABORATORY [facility] [address] Lab (1st floor, no room number) [place] [address] * (ABNORMAL) Glucose by meter (03/03/2024 5:11 PM CDT) GLUCOSE BY METER POCT 64(L) 70 - 99 mg/dL 03/03/2024 5:18 PM CDT LABORATORY POC Blood, Capillary BLOOD SPECIMEN / Unknown 03/03/2024 5:11 PM CDT 03/03/2024 5:18 PM CDT Ron DEAN - [facility]CT LABORATORY [facility] [address] Lab (1st floor, no room number) [place] [address] * (ABNORMAL) Glucose by meter (03/03/2024 4:39 PM CDT) GLUCOSE BY METER POCT 55(L) 70 - 99 mg/dL 03/03/2024 4:46 PM CDT LABORATORY POC Blood, Capillary BLOOD SPECIMEN / Unknown 03/03/2024 4:39 PM CDT 03/03/2024 4:46 PM CDT Narrative Authorizing Provider Result Lauren Tripathi MD LAB - [facility] LABORATORY [facility] [address] Lab (1st floor, no room number) [address] * (ABNORMAL) Glucose by meter (03/03/2024 4:17 PM CDT) GLUCOSE BY METER POCT 65(L) 70 - 99 mg/dL 03/03/2024 4:25 PM CDT RH LABORATORY POC Blood, Capillary BLOOD SPECIMEN / Unknown 03/03/2024 4:17 PM CDT 03/03/2024 4:25 PM CDT Ron DEAN - BEAKER POCT Performing Organization Address City/[facility]/ZIP Co de Phone Number LABORATORY [facility] [address] Lab (1st floor, no room number) [address] * (ABNORMAL) Glucose by meter (03/03/2024 2:11 PM CDT) GLUCOSE BY METER POCT 65(L) 70 - 99 mg/dL 03/03/2024 2:17 PM CDT RH LABORATORY POC Blood, Capillary BLOOD SPECIMEN / Unknown 03/03/2024 2:11 PM CDT 03/03/2024 2:17 PM CDT Narrative Authorizing Provider Result Lauren DEAN - BEAKER POCT LABORATORY [facility] [address] Lab (1st floor, no room number) [address] * (ABNORMAL) Hemoglobin (03/03/2024 2:07 PM CDT) Hemoglobin 7.6(L) 13.3 - 17.7 g/dL 03/03/2024 2:13 PM CDT RH LABORATORY Blood STRUCTURE OF RIGHT UPPER LIMB / Unknown Venipuncture / Unknown 03/03/2024 2:07 PM CDT 03/03/2024 2:10 PM CDT Narrative Authorizing Provider Result Lauren Tripathi MD LAB - BLOOD ORDERABL ES Performing Organization Address [facility]/ZIP Co de Phone Number [facility] [address] Lab (1st floor, no room number) [place] [address], [facility] * (ABNORMAL) Glucose by meter (03/03/2024 11:59 AM CDT) GLUCOSE BY METER POCT 152(H) 70 - 99 mg/dL 03/03/2024 2:15 PM CDT RH LABORATORY POC Blood, Capillary BLOOD SPECIMEN / Unknown 03/03/2024 11:59 AM CDT 03/03/2024 2:15 PM CDT Narrative Authorizing Provider Result Lauren DEAN - BEAKER POCT Performing Organization Address [facility]/ZIP Co de Phone Number [facility] Lab [address] Lab (1st floor, no room number) [place] [address], [facility] * Glucose by meter (03/03/2024 11:36 AM CDT) GLUCOSE BY METER POCT 80 70 - 99 mg/dL 03/03/2024 2:14 PM CDT LABORATORY POC Blood, Capillary BLOOD SPECIMEN / Unknown 03/03/2024 11:36 AM CDT 03/03/2024 2:14 PM CDT Narrative Authorizing Provider Result Lauren DEAN - BEAKER POCT Performing Organization Address City/[facility]/ZIP Co de Phone Number [facility] Lab [address] Lab (1st floor, no room number) [place] [phone], [facility] * (ABNORMAL) Glucose by meter (03/03/2024 11:14 AM CDT) GLUCOSE BY METER POCT 39(LL) 70 - 99 mg/dL 03/03/2024 2:14 PM CDT LABORATORY POC Comment:Dr/RN Notified Blood, Capillary BLOOD SPECIMEN / Unknown 03/03/2024 11:14 AM CDT 03/03/2024 2:14 PM CDT Ron Tripathi MD LAB - BEAKER POCT LABORATORY [facility] Lab [address] Lab (1st floor, no room number) [address] * Glucose by meter (03/03/2024 10:51 AM CDT) GLUCOSE BY METER POCT 79 70 - 99 mg/dL 03/03/2024 10:58 AM CDT LABORATORY POC Blood, Capillary BLOOD SPECIMEN / Unknown 03/03/2024 10:51 AM CDT 03/03/2024 10:58 AM CDT Ron Tripathi MD LAB - BEAKER POCT Performing Organization Address City/[facility]/ZIP Co de Phone Number LABORATORY [facility] [address] Lab (1st floor, no room number) [address] [place] [address] * (ABNORMAL) Glucose by meter (03/03/2024 10:30 AM CDT) GLUCOSE BY METER POCT 56(L) 70 - 99 mg/dL 03/03/2024 10:37 AM CDT LABORATORY POC Blood, Capillary BLOOD SPECIMEN / Unknown 03/03/2024 10:30 AM CDT 03/03/2024 10:37 AM CDT Ron Tripathi MD LAB - BEAKER POCT LABORATORY [facility] [address] Lab (1st floor, no room number) [address] [place] [address] * (ABNORMAL) Hemoglobin (03/03/2024 6:10 AM CDT) Pathologist [facility] Hemoglobin 7.1(L) 13.3 - 17.7 g/dL 03/03/2024 6:27 AM CDT RH LABORATORY Blood STRUCTURE OF RIGHT UPPER LIMB / Unknown Venipuncture / Unknown 03/03/2024 6:10 AM CDT 03/03/2024 6:25 AM CDT Ron Tripathi MD LAB - BLOOD ORDERABL ES Performing Organization Address City/[facility]/ZIP Co de Phone Number LABORATORY [facility] [address] Lab (1st floor, no room number) [place] [address] * (ABNORMAL) INR (03/03/2024 6:10 AM CDT) Pathologist [facility] INR 2.23(H) 0.85 - 1.15 03/03/2024 6:46 AM CDT RH LABORATORY Blood STRUCTURE OF RIGHT UPPER LIMB / Unknown Venipuncture / Unknown 03/03/2024 6:10 AM CDT 03/03/2024 6:25 AM CDT Ron Tripathi MD LAB - BLOOD ORDERABL ES Performing Organization Address City/[facility]/ZIP Co de Phone Number LABORATORY [facility] Lab [address] Lab (1st floor, no room number) [place] [address], [place] * (ABNORMAL) CBC with platelets (03/03/2024 6:10 AM CDT) Pathologist [facility] WBC Count 5.5 4.0 - 11.0 10e3/uL [...] MD LAB - BLOOD ORDERABL ES LABORATORY [facility] [address] [facility] Lab (1st floor, no room number) [place] [address] * (ABNORMAL) Basic metabolic panel [...] AM CDT Narrative Authorizing Provider Result Lauren Tripahti MD LAB - BLOOD ORDERABL ES [facility] Lab [address] Lab (1st floor, no room number) [place] [address] * (ABNORMAL) Glucose by meter (03/03/2024 5:27 AM CDT) GLUCOSE BY METER POCT 135(H) 70 - 99 mg/dL 03/03/2024 5:34 AM CDT LABORATORY POC Blood, Capillary BLOOD SPECIMEN / Unknown 03/03/2024 5:27 AM CDT 03/03/2024 5:34 AM CDT Narrative Authorizing Provider Result Lauren Tirpathi MD LAB - BEAKER POCT LABORATORY [facility] Lab [address] Lab (1st floor, no room number) [place] [address] * Glucose by meter (03/03/2024 4:16 AM CDT) GLUCOSE BY METER POCT 71 70 - 99 mg/dL 03/03/2024 4:23 AM CDT RH LABORATORY POC Blood, Capillary BLOOD SPECIMEN / Unknown 03/03/2024 4:16 AM CDT 03/03/2024 4:23 AM CDT Ron Tripathi MD LAB - BEAKER POCT LABORATORY [facility] Lab [address] Lab (1st floor, no room number) [place] [phone] [place] [address] * Glucose by meter (03/03/2024 2:40 AM CDT) GLUCOSE BY METER POCT 91 70 - 99 mg/dL 03/03/2024 2:46 AM CDT LABORATORY POC Blood, Capillary BLOOD SPECIMEN / Unknown 03/03/2024 2:40 AM CDT 03/03/2024 2:46 AM CDT Ron Tripathi MD LAB - BEAKER POCT Performing Organization Address [facility]/ZIP Co de Phone Number LABORATORY [facility] [address] Lab (1st floor, no room number) [place] [phone] [place] [address] * CONDITIONAL Transfuse red blood cells (unit) 1; No special requirements (03/03/2024 1:50 AM CDT) Eileen Earl MD BLOOD TRANSFUSION ORDERABLES * Glucose by meter (03/03/2024 1:38 AM CDT) GLUCOSE BY METER POCT 82 70 - 99 mg/dL 03/03/2024 1:46 AM CDT LABORATORY POC Blood, Capillary BLOOD SPECIMEN / Unknown 03/03/2024 1:38 AM CDT 03/03/2024 1:46 AM CDT Ron DAEN - BEXIANG POCT LABORATORY [facility] [address] Lab (1st floor, no room number) [place] [phone] [place] [address] * Glucose by meter (03/03/2024 12:34 AM CDT) GLUCOSE BY METER POCT 74 70 - 99 mg/dL 03/03/2024 12:40 AM CDT LABORATORY POC Blood, Capillary BLOOD SPECIMEN / Unknown 03/03/2024 12:34 AM CDT 03/03/2024 12:40 AM CDT Narrative Authorizing Provider Result Lauren Tripathi MD LAB - BEAKER POCT Performing Organization Address City/[facility]/ZIP Co de Phone Number LABORATORY [facility] Lab [address] Lab (1st floor, no room number) [place] [phone] [place] [address] * Transfuse red blood cells (unit) (03/02/2024 [...] ES Performing Organization Address [facility]/ZIP Co de Phone Number [facility] Lab [address] Lab (1st floor, no room number) [place] [phone] [place] [address] * (ABNORMAL) Glucose by meter (03/02/2024 9:34 PM CDT) GLUCOSE BY METER POCT 126(H) 70 - 99 mg/dL 03/02/2024 10:03 PM CDT RH LABORATORY POC Blood, Capillary BLOOD SPECIMEN / Unknown 03/02/2024 9:34 PM CDT 03/02/2024 10:03 PM CDT Ron DEAN - BEAKER POCT Performing Organization Address City/[facility]/ZIP Co de Phone Number LABORATORY [facility] Lab [address] Lab (1st floor, no room number) [place] [phone] [place] [address] * (ABNORMAL) Glucose by meter (03/02/2024 9:01 PM CDT) GLUCOSE BY METER POCT 136(H) 70 - 99 mg/dL 03/02/2024 9:11 PM CDT RH LABORATORY POC Blood, Capillary BLOOD SPECIMEN / Unknown 03/02/2024 9:01 PM CDT 03/02/2024 9:11 PM CDT Narrative Authorizing Provider Result Lauren DEAN - BEAKER POCT LABORATORY [facility] [address] Lab (1st floor, no room number) [address] * (ABNORMAL) Glucose by meter (03/02/2024 8:26 PM CDT) GLUCOSE BY METER POCT 65(L) 70 - 99 mg/dL 03/02/2024 8:34 PM CDT LABORATORY POC Blood, Capillary BLOOD SPECIMEN / Unknown 03/02/2024 8:26 PM CDT 03/02/2024 8:34 PM CDT Narrative Authorizing Provider Result Lauren DEAN - BEXIANG POCT LABORATORY [facility] [address] Lab (1st floor, no room number) [address] * (ABNORMAL) Glucose by meter (03/02/2024 8:01 PM CDT) GLUCOSE BY METER POCT 54(L) 70 - 99 mg/dL 03/02/2024 8:27 PM CDT LABORATORY POC Blood, Capillary BLOOD SPECIMEN / Unknown 03/02/2024 8:01 PM CDT 03/02/2024 8:27 PM CDT Narrative Authorizing Provider Result Lauren DEAN - BEAKER POCT Performing Organization Address [facility]/ZIP Co de Phone Number RH LABORATORY [facility] Lab [address] Lab (1st floor, no room number) [place] [phone] [place] [address] * (ABNORMAL) Glucose by meter (03/02/2024 7:45 PM CDT) GLUCOSE BY METER POCT 41(LL) 70 - 99 mg/dL 03/02/2024 7:55 PM CDT RH LABORATORY POC Blood, Capillary BLOOD SPECIMEN / Unknown 03/02/2024 7:45 PM CDT 03/02/2024 7:55 PM CDT Ron DEAN - DAVID POCT Performing Organization Address [facility]/ZIP Co de Phone Number LABORATORY [facility] Lab [address] Lab (1st floor, no room number) [place] [phone] [place] [address] * (ABNORMAL) Ammonia (on ice) (03/02/2024 3:55 PM CDT) Ammonia <10(L) 16 - 60 umol/L 03/02/2024 4:21 PM CDT RH LABORATORY Blood STRUCTURE OF RIGHT UPPER LIMB / Unknown Venipuncture / Unknown 03/02/2024 3:55 PM CDT 03/02/2024 3:57 PM CDT Raúl Bernard MD LAB - BLOOD ORDERABL ES Performing Organization Address [facility]/ZIP Co de Phone Number LABORATORY [facility] Lab [address] Lab (1st floor, no room number) [place] [phone] * Prepare red blood cells (unit) (03/02/2024 3:29 PM CDT) Blood Component Type Red Blood Cells RH BLOOD BANK Product Code [id number] RH BLOO D BANK Unit Status Transfused RH BLOO D BANK Unit Number [id number] RH B LOOD BANK CROSSMATCH Compatible RH BLOOD BANK CODING SYSTEM [id number] RH BLO OD BANK ISSUE DATE AND TIME [id number] RH BLOOD BANK UNIT ABO/RH O+ RH BLOOD BANK UNIT TYPE ISBT 5100 RH BL OOD BANK 03/02/2024 3:29 PM CDT Raúl Bernard MD BLOOD BANK PRODUCT O RDERABLES Performing Organization Address [facility] Co de Phone Number RH BLOOD BANK [address] [place] [address] * Prepare red blood cells (unit) (03/02/2024 3:29 PM CDT) Blood Component Type Red Blood Cells RH BLOOD BANK Product Code [id number] RH BLOO D BANK Unit Status Transfused RH BLOO D BANK Unit Number [id number] RH B LOOD BANK CROSSMATCH Compatible RH BLOOD BANK CODING SYSTEM [id number] RH BLO OD BANK ISSUE DATE AND TIME [id number] RH BLOOD BANK UNIT ABO/RH O+ RH BLOOD BANK UNIT TYPE ISBT 5100 RH BL OOD BANK 03/02/2024 3:29 PM CDT Raúl Bernard MD BLOOD BANK PRODUCT O RDERABLES Performing Organization Address [facility] de Phone Number RH BLOOD BANK [address] [place] [address] * EKG 12-lead, tracing only (03/02/2024 2:00 PM CDT) Systolic Blood Pressure mmHg RADIOLOGY RESULTS Diastolic Blood Pressure mmHg RADIOLOGY RESULTS Ventricular Rate 82 BPM RAD IOLOGY RESULTS Atrial Rate 82 BPM RADIOLOG Y RESULTS VA Interval 210 ms RADIOLOG Y RESULTS QRS Duration 88 ms RADIOLO GY RESULTS QT 382 ms RADIOLOGY RESULTS QTc 446 ms RADIOLOGY RESULTS P [place] 45 degrees RADIOLOGY RESULTS R AXIS -7 degrees RADIOLOGY RESULTS T [place] 24 degrees RADIOLOGY RESULTS Interpretation ECG Sinus rhythm with 1st degree A-V block Inferior infarct , age undetermined Abnormal ECG When compared with ECG of 24-FEB-2024 10:12, No significant change was found Unconfirmed report - interpretation of this ECG is computer generated - see medical record for final interpretation Confirmed by - EMERGENCY ROOM, PHYSICIAN ([id number]), publications editor YISSEL VELASQUEZ ([id number]) on 03/02/2024 3:43:16 PM RADIOLOGY RESULTS 03/02/2024 [...] the Xpert Xpress CoV2/Flu/RSV Assay on the Bag of Ice GeneXpert Instrument. This test should be ordered [...] management. This test was validated by the [facility]. These laboratories are certified under the Clinical Laboratory Improvement Amendments of 1988 (CLIA-88) as qualified to perform high complexity laboratory testing. Raúl Bernard MD LAB - MICRO GENERAL ORDERABLES Performing Organization Address City/[facility]/ZIP Co de Phone Number [facility] Lab [address] Lab (1st floor, no room number) [place] [address] * Hemoglobin A1c (03/02/2024 1:56 [...] ES Performing Organization Address [facility] Co de Phone Number [facility] Lab [address] Lab (1st floor, no room number) [place] [address] * Adult Type and Screen (03/02/2024 1:56 PM CDT) ABO/RH(D) O POS 03/02/2024 2:59 PM CDT RH BLOOD BANK Antibody Screen Negative Negative 03/02/2024 2:59 PM CDT RH BLOOD BANK SPECIMEN EXPIRATION DATE [id number] 03/02/2024 2:59 PM CDT RH BLOOD BANK Blood BLOOD SPECIMEN / Unknown Venipuncture / Unknown 03/02/2024 1:56 PM CDT 03/02/2024 2:15 PM CDT Raúl Bernard MD LAB - BLOOD BANK SHANNON T ORDER Performing Organization Address City/[facility]/ZIP Co de Phone Number BLOOD BANK [address] [place] [address] * (ABNORMAL) CBC with platelets [...] - BLOOD ORDERABL ES Performing Organization Address City/[facility]/ZIP Co de Phone Number [facility] Lab [address] Lab (1st floor, no room number) [address] [place] [address] * (ABNORMAL) INR (03/02/2024 1:56 PM CDT) INR 2.09(H) 0.85 - 1.15 03/02/2024 3:14 PM CDT RH LABORATORY Blood BLOOD SPECIMEN / Unknown Venipuncture / Unknown 03/02/2024 1:56 PM CDT 03/02/2024 2:15 PM CDT Raúl Bernard MD LAB - BLOOD ORDERABL ES Performing Organization Address City/[facility]/ZIP Co de Phone Number [facility] Lab [address] Lab (1st floor, no room number) [place] [phone] [place] [address] * (ABNORMAL) Comprehensive metabolic panel (03/02/2024 1:56 [...] - BLOOD ORDERABL ES Performing Organization Address City/[facility]/ZIP Co de Phone Number [facility] Lab [address] Lab (1st floor, no room number) [place] [address] * Extra Heparinized Syringe (03/02/2024 1:56 PM CDT) Hold Specimen [facility] 03/02/2024 3:17 PM CDT RH LABORATORY Blood, venous BLOOD SPECIMEN / Unknown Venipuncture / Unknown 03/02/2024 1:56 PM CDT 03/02/2024 2:14 PM CDT Raúl Bernard MD LAB - BLOOD ORDERABL ES Performing Organization Address [facility] Co de Phone Number [facility] [address] Lab (1st floor, no room number) [place] [address], [facility] * Extra Blood Bank Purple Top Tube (03/02/2024 1:56 PM CDT) Hold Specimen [facility] 03/02/2024 3:17 PM CDT RH LABORATORY Blood BLOOD SPECIMEN / Unknown Venipuncture / Unknown 03/02/2024 1:56 PM CDT 03/02/2024 2:15 PM CDT Raúl Bernard MD LAB - BLOOD ORDERABL ES Performing Organization Address City/[facility]/ZIP Co de Phone Number [facility] [address] Lab (1st floor, no room number) [place] [address], [facility] * Extra Blood Bank Purple Top Tube (03/02/2024 1:56 PM CDT) Hold Specimen [facility] 03/02/2024 3:17 PM CDT RH LABORATORY Blood BLOOD SPECIMEN / Unknown Venipuncture / Unknown 03/02/2024 1:56 PM CDT 03/02/2024 2:15 PM CDT Raúl Bernard MD LAB - BLOOD ORDERABL ES Performing Organization Address City/[facility]/ZIP Co de Phone Number [facility] Lab [address] Lab (1st floor, no room number) [place] [address] * Extra Purple Top Tube (03/02/2024 1:56 PM CDT) Hold Specimen [facility] 03/02/2024 3:17 PM CDT RH LABORATORY Blood BLOOD SPECIMEN / Unknown Venipuncture / Unknown 03/02/2024 1:56 PM CDT 03/02/2024 2:15 PM CDT Raúl Bernard MD LAB - BLOOD ORDERABL ES Performing Organization Address [facility]/ZIP Co de Phone Number [facility] [address] Lab (1st floor, no room number) [place] [address], [facility] * Extra Green Top ([place] Heparin) Tube (03/02/2024 1:56 PM CDT) Hold Specimen [facility] 03/02/2024 3:17 PM CDT RH LABORATORY Blood BLOOD SPECIMEN / Unknown Venipuncture / Unknown 03/02/2024 1:56 PM CDT 03/02/2024 2:15 PM CDT Raúl Bernard MD LAB - BLOOD ORDERABL ES [facility] [address] Lab (1st floor, no room number) [place] [address], [facility] * Extra Red Top Tube (03/02/2024 1:56 PM CDT) Hold Specimen [facility] 03/02/2024 3:17 PM CDT RH LABORATORY Blood BLOOD SPECIMEN / Unknown Venipuncture / Unknown 03/02/2024 1:56 PM CDT 03/02/2024 2:15 PM CDT Raúl Bernard MD LAB - BLOOD ORDERABL ES [facility] [address] Lab (1st floor, no room number) [place] [address] * Extra Blue Top Tube (03/02/2024 1:56 PM CDT) Hold Specimen [facility] 03/02/2024 3:17 PM CDT RH LABORATORY Blood BLOOD SPECIMEN / Unknown Venipuncture / Unknown 03/02/2024 1:56 PM CDT 03/02/2024 2:15 PM CDT Raúl Bernard MD LAB - BLOOD ORDERABL ES Performing Organization Address [facility]/ZIP Co de Phone Number [facility] [address] Lab (1st floor, no room number) [place] [address] documented in this encounter Visit [...] stools. documented in this encounter Care Teams Tankage Supervisor Relationship Specialty Start Date End Date Cornell Butt PCP - General 06/24/11 documented as of this encounter
--- OUTSIDE RECORDS SUMMARY | 2024-06-04 15:46 | XMS_ITS | Encounter Summary ---
Author Organization [place] Address [address] [place] [address] Care Team Providers Care Greige Mender Name Role Phone Preet Huff Primary Care Provider [phone] Reason for Visit * Reason Comments Altered [...] type Rh 3 Medical Surgical [address] [place] [address] Referral ID Status Reason Start Date Expiration Date Visits Re quested Visits Authorized [id number] 1 1 Encounter Details Date Type Department Care Team (Late st Contact Info) Description 02/24/2024 9:38 AM CDT - 02/26/2024 3:30 PM CDT Hospital Encounter [facility] 3 Medical Surgical [address] [place] [address] Jae Noel MD [facility] [address] [place], [place] [address] Georgia Perez DO [address] [place], [place] [id number] Anemia, unspecified type; ESRD on dialysis (H); [...] file Gender Identity Male 12/05/2017 10:39 AM 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 Patient wasseen at [facility] on 02/22 evening for concerns about [...] his mother and aunt who is his DATABASE SECURITY ADMINISTRATOR. He is legally blind as well. Hx [...] minutes discharging this patient. Georgia Perez DO [address] SURGICAL [address] [facility] [address] Physical Exam Vital Signs: Temp: 97.6 ??F [...] is related to your kidney disease. Your manager recruitment will help with it. Follow-up and recommended [...] the vertex were obtained without intravenous contrast. Structural Metal Fabricator Apprentice (topogram) image(s) also obtained and reviewed. Dose [...] volume loss. FLAKO ZUNIGA MD SYSTEM ID: [id number] CT Abdomen Pelvis w Contrast Narrative EXAM: CT ABDOMEN PELVIS W CONTRAST LOCATION: [facility] DATE: 02/25/2024 INDICATION: Varices on [...] sent through Care Everywhere. * Esophageal Varices (Italian) documented in this encounter Medications at Time [...] mom (Arianna), aunt (Thelma) who is alsohis DATABASE SECURITY ADMINISTRATOR, cousin (Aron) who is also his DATABASE SECURITY ADMINISTRATOR, and another cousin (Javon). Patient reports there are no stairs at home. Self-Care Usual Activity Tolerance good Current Activity Tolerance moderate Equipment Currently Used at Home none Fall history within last six months no (Per patient) Activity/Exercise/Self-Care Comment Patient's family provides 10 hours of DATABASE SECURITY ADMINISTRATOR services per day, cousin cares for patient [...] Evaluation Time PT Eval, Moderate Complexity Minutes (84703) 8 Physical Therapy Goals PT Frequency Daily PT Predicted Duration/Target Date for Goal Attainment 02/29/24 PT Goals Bed Mobility;Transfers;Gait PT: Bed Mobility Supine to/from sit;Rolling;Supervision/stand-by assist PT: Transfers Supervision/stand-by assist;Sit to/from stand;Bed to/from chair PT: Gait Supervision/stand-by assist;150 feet Interventions Interventions Quick Adds Therapeutic Activity Therapeutic Activity Therapeutic Activities: dynamic activities to improve functional performance Minutes (31120) 8 Symptoms Noted During/After Treatment Fatigue Treatment [...] lives with family, has 10 hours of DATABASE SECURITY ADMINISTRATOR assist per day. Anticipate discharge home with [...] checked every 4 hours. Outpatient Dialysis at [facility] Patient weight shifting, unable to make large shifts due to AVF in thigh Post treatment report given to Andre Franklin RN, RN Please remove patient dressing on AVF and AVG needle sites 24 hours after dialysis. If leaking occurs please apply a Band-Aid. * Georgia Perez DO - 02/25/2024 9:11 AM CDT [facility] Medicine Progress Note - [...] Per his Aunt, patient was seen at [facility] on 02/22 evening for concerns about [...] his mother and aunt who is his DATABASE SECURITY ADMINISTRATOR. He is legally blind as well. 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 [...] renal disease: Chronic Tuesday dialysis at [facility] Workers Compensation Legal Secretary: Dr. Holman Access: Left thigh AV graft, [...] evaluation ongoing, possible EGD Mann Brush DO [facility] consultants Office: [phone] Interval History: Patient seen during dialysis, admission [...] medications, labs and imaging. Mann Brush DO [facility] Consultants - Nephrology Office: [phone] * Mazin Srivastava MD - 02/24/2024 6:19 [...] Blackwood PA-C - 02/24/2024 12:12 PM CDT [facility] History and Physical - [...] Per his Aunt, patient was seen at [facility] on 02/22 evening for concerns about [...] his mother and aunt who is his DATABASE SECURITY ADMINISTRATOR. He is legally blind as well. Hx [...] provider . GÓMEZ Blackwood PA-C Hospitalist Service [facility] Securely message with [employer] (more info) Text page via [facility] Paging/Directory Chief Complaint Dark stools History [...] Per his Aunt, patient was seen at [facility] on 02/22 evening for concerns about [...] AND DEBRIDEMENT LEFT FOOT ULCER (C-ARM); Surgeon: Rboer Saravia MD; Location: [facility] OR THROMBECTOMY LOWER EXTREMITY 08/09/2012 Procedure: THROMBECTOMY LOWER EXTREMITY;; Surgeon: Rober Saravia MD; Location: [facility] OR Prior to Admission Medications Prior to Admission Medications Prescriptions Last Dose Informant Patient Reported? Taking? AMLODIPINE BESYLATE PO Personnel Administrator Yes No Sig: Take 10 mg by mouth four times a week On Non dialysis days which is MWFSun BISACODYL PO Personnel Administrator Yes No Sig: Take 10 mg by mouth four times a week (Takes 2 x 5mg tablet = 10mg dose) Tuesday, Tuesday, Tuesday, and Tuesday Calcium Acetate, Phos Binder, (CALCIUM ACETATE PO) Personnel Administrator Yes No Sig: Take 1,334 mg by mouth 3 times daily (with meals) Takes with meals (2 x 667mg tablet) Cholecalciferol (VITAMIN D3 PO) Personnel Administrator Yes No Sig: Take 2,000 Units by mouth every evening LISINOPRIL PO Personnel Administrator Yes No Sig: Take 40 mg by mouth daily (Takes 2 x 20mg tablet = 40mg ) METOPROLOL TARTRATE PO Personnel Administrator Yes No Sig: Take 100 mg by [...] the vertex were obtained without intravenous contrast. Structural Metal Fabricator Apprentice (topogram) image(s) also obtained and reviewed. Dose [...] volume loss. FLAKO ZUNIGA MD SYSTEM ID: [id number] Associated attestation - Georgia Perez DO - [...] Communication Assessment Patient's communication style: spoken language (Italian or Bilingual) Hearing Difficulty or Deaf: no [...] Support: Care provided by: other (see comments) (DATABASE SECURITY ADMINISTRATOR who is an aunt,Thelma and cousin Aron) Provides care for: no one, unable/limited ability to care for self Marital Status: Single DATABASE SECURITY ADMINISTRATOR Description of Support System: Supportive, Involved Current Resources: Patient receiving home care services: No Community Resources: County Programs, County Worker, Dialysis Services, OP Dialysis, DATABASE SECURITY ADMINISTRATOR, Transportation Services Equipment currently used at home: none Supplies currently used at home: Employment/Financial: Employment Status: unknown Financial Concerns: unknown Does the patient's insurance plan have a 3 day qualifying hospital stay waiver? No Lifestyle & Psychosocial Needs: Social Determinants of Health Food Insecurity: No Food Insecurity (06/23/2022) Received from [facility] Food Insecurity Worried About Running Out of Food in the Last Year: 1 Depression: Not at risk (05/22/2020) Received from [facility] PHQ-2 PHQ-2 Score: 0 Housing Stability: Low Risk (06/23/2022) Received from [facility] Housing Stability Unable to Pay for Housing in the Last Year: 1 Tobacco Use: Medium Risk (11/08/2023) Received from [facility] Patient History Smoking Tobacco Use: Never Smokeless Tobacco Use: Never Passive Exposure: Yes Financial Resource Strain: Low Risk (06/23/2022) Received from [facility] Financial Resource Strain Difficulty of Paying Living Expenses: 3 Difficulty of Paying Living Expenses: Not on file Alcohol Use: Not on file Transportation Needs: No Transportation Needs (06/23/2022) Received from [facility] Transportation Needs Lack of Transportation (Medical): 1 Physical Activity: Not on file Interpersonal Safety: Not on file Stress: Not on file Social Connections: Unknown (06/24/2023) Received from [facility] Social Connections Frequency of Communication [...] No Current Concerns Values/Beliefs: Spiritual, Cultural Beliefs, Pentecostal Practices, Values that affect care: Additional Information: Chart reviewed. Emergency numbers listed on face sheet have been updated by S[facility]. SW called and spokewith pt's aunt Thelma [phone] who reports pt lives with his mom Arianna, aunt Thelma who is also his DATABASE SECURITY ADMINISTRATOR, cousin Aron who is also his DATABASE SECURITY ADMINISTRATOR and another cousin Javon. They live in a house. Thelma reports Aron cares for pt Tue-Tue and she provides pt's care on Sundays, he receives 10 hrsof DATABASE SECURITY ADMINISTRATOR services a day. She reports he is on a CADI Waiver. She reports he does not use any assistive devices. He gets dialysis on M, W, F at [facility] [phone] and gets transportation there through [facility]. Plan: [facility] will continue to follow pt and assist with discharge planning. Katja Bronson PUBLICATION MANAGER, [facility] Inpatient Care Coordination [facility] [phone] * Dinorah Allen APRN UNDERCOATER - 02/24/2024 2:34 PM CDTAssociated Order(s): GASTROENTEROLOGY IP CONSULT Images from the original note were not included. GASTROENTEROLOGY CONSULTATION Herminio Victor [address] [place] [id number] 58 year old male Admission Date/Time: 02/24/2024 [...] has had a colonoscopy or EGD before. BICYCLE RENTAL CLERK medications reviewed which include omeprazole 20mg daily. [...] to person, tells me he is in shallowater, slow to respond PSYCH: KEARA LABS: I [...] 76.2* 78* 114* ANIONGAP 18* 16* 20* OJN 8.3* 8.7 9.0 Recent Labs Lab Test [...] including patient evaluation, reviewing documentation/test results, and supervisor border department. Thank you for asking us to participate in the care of this patient. Dinorah Allen, ADRIAN [facility] ([facility]) [phone] Associated attestation - Momo Hercules MD - [...] 12:59 PM CDTAssociated Order(s): NEPHROLOGY IP CONSULT [facility] Nephrology Consultation Date of Admission: 02/24/2024 Assessment & Plan Herminio Victor is a 58 year old male who was admitted on 02/24/2024. Assessment: 1) End-stage renal disease: Chronic Tuesday dialysis at [facility] Workers Compensation Legal Secretary: Dr. Holman Access: Left thigh AV graft, [...] hospitalist DO [facility] Nephrology [phone] Reason for Consult I was asked to see the patient for ESRD management History is obtained from the patient and chart review. History of Present Illness Herminio Victor is a 58 year old male who presents to the emergency room today with some concerns of anemia, GI bleeding. Also some agitation and altered mentation. Patient dialyzes Wednesdays and Fridays at [facility]. Found to have hemoglobin of 6.2 prompting [...] from dialysis unit, last visit by physician schedule planning manager on 02/13/2024. Past Medical History I have [...] Informant Patient Reported? Taking? AMLODIPINE BESYLATE PO Personnel Administrator Yes No Sig: Take 10 mg by mouth four times a week On Non dialysis days which is MWFSun BISACODYL PO Personnel Administrator Yes No Sig: Take 10 mg by mouth four times a week (Takes 2 x 5mg tablet = 10mg dose) Tuesday, Tuesday, Tuesday, and Tuesday Calcium Acetate, Phos Binder, (CALCIUM ACETATE PO) Personnel Administrator Yes No Sig: Take 1,334 mg by mouth 3 times daily (with meals) Takes with meals (2 x 667mg tablet) Cholecalciferol (VITAMIN D3 PO) Personnel Administrator Yes No Sig: Take 2,000 Units by mouth every evening LISINOPRIL PO Personnel Administrator Yes No Sig: Take 40 mg by mouth daily (Takes 2 x 20mg tablet = 40mg ) METOPROLOL TARTRATE PO Personnel Administrator Yes No Sig: Take 100 mg by [...] Hernandez RN - 02/24/2024 11:51 AM CDT [facility] ED Nurse Handoff Report [...] 2. Lift room needed: Yes. Bariatric: No Air Operations Manager Needed: No Isolation: No. Infection: Not [...] was sent here. He was seen at [facility] yesterday but nothing was found [...] Component Type Red Blood Cells Product Code C8162K84 Unit Status Not used Unit Number [id number] CROSSMATCH Compatible CODING SYSTEM [id number] UNIT ABO/RH O+ UNIT TYPE ISBT 5100 PREPARE RED BLOOD CELLS (UNIT) Blood Component Type Red Blood Cells Product Code Z5018U81 Unit Status Ready for issue Unit Number [id number] CROSSMATCH Compatible CODING SYSTEM [id number] PREPARE RED BLOOD CELLS (UNIT) TRANSFUSE RED BLOOD CELLS (UNIT) ABO/RH TYPE AND SCREEN CT Head w/o Contrast Final Result IMPRESSION: 1. No acute intracranial pathology. 2. Chronic small vessel ischemic disease and generalized cerebral volume loss. FLAKO ZUNIGA MD SYSTEM ID: [id number] Treatments provided: See MAR Family Comments: NA [...] was sent here. He was seen at [facility] yesterday but nothing was found [...] with mom and his aunt is his DATABASE SECURITY ADMINISTRATOR. Past Medical History Medical History and Problem [...] Component Type Red Blood Cells Product Code P4499F45 Unit Status Not used Unit Number [id number] CROSSMATCH Compatible CODING SYSTEM [id number] UNIT ABO/RH O+ UNIT TYPE ISBT 5100 PREPARE RED BLOOD CELLS (UNIT) Blood Component Type Red Blood Cells Product Code L2834M41 Unit Status Transfused Unit Number [id number] CROSSMATCH Compatible CODING SYSTEM [id number] ISSUE DATE AND TIME UNIT ABO/RH O+ UNIT TYPE ISBT 5100 PREPARE RED BLOOD CELLS (UNIT) ABO/RH TYPE AND SCREEN Imaging CT Head w/o Contrast Final Result IMPRESSION: 1. No acute intracranial pathology. 2. Chronic small vessel ischemic disease and generalized cerebral volume loss. FLAKO ZUNIGA MD SYSTEM ID: [id number] EKG ECG taken at 1012, ECG read [...] and long-term care needs assisted with his certified personal trainer Aunt Thelma, who presents from dialysis due [...] statements to me. Jae Noel MD 02/24/24 1543 documented in this encounter Miscellaneous Notes * Pharmacy-Anticoagulation Service - John Rosado [facility] - 02/26/2024 3:30 PM CDT Images from the original note were not included. 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 INR Goal= 2-3 Warfarin BICYCLE RENTAL CLERK Regimen: 5 mg M-F Anticoagulation Dose History [...] lives with family, has 10 hours of DATABASE SECURITY ADMINISTRATOR assist per day. Anticipate discharge home with [...] Documentation Taken 02/25/2024 1609 by Ramila Singh, aircraft refueller Interventions: care clustered essential oils Goal: Readiness [...] shift note. Outcome: Progressing Flowsheets (Taken 02/24/2024 8233) Outcome Evaluation: Hgb 6.7 at 1800 recheck. [...] Axel Wiley - 02/24/2024 3:11 PM CDT Interior Wall Assembler Admission Medication History Admission medication history is complete. The information provided in this note is only as accurateas the sources available at the time of the update. Information Source(s): Family member and CareEverywhere/SureScripts via phone Pertinent Information: Medication list obtained from sister (Thelma) who handles his medications. Changes made to BICYCLE RENTAL CLERK medication list: Added: Calcium Acetate (snack) Deleted: [...] Completed By: Axel Wiley 02/24/2024 3:11 PM BICYCLE RENTAL CLERK Med List Medication Sig Last Dose amLODIPine [...] 7:30 PM CDT Medication history completed by vice president pharmacy, reviewed by Zuleyka Hopkins, PharmD * Plan [...] Description 07/05/2024 1:15 PM CDT Office Visit [address] [address] Lizandro Barron MD [address] [address] Pending Results Name Type Priority Associated Diagnoses [...] LAB - BLOOD ORDER NADIA [facility]AT[facility] [address] [facility], [address] [place] [address] * (ABNORMAL) INR (02/26/2024 9:49 AM CDT) INR 1.27(H) 0.85 - 1.15 02/26/2024 10:13 AM CDT LABORATORY Blood STRUCTURE OF RIGHT HAND / Unknown Venipuncture / Unknown 02/26/2024 9:49 AM CDT 02/26/2024 9:58 AM CDT Georgia Perez DO LAB - BLOOD ORDER NADIA LABORATORY [facility] Acute [facility] Lab [address] Lab (1st floor, no room number) [place] [address] * (ABNORMAL) Renal panel (02/26/2024 6:10 AM [...] DO LAB - BLOOD ORDER NADIA LABORATORY [facility] [address] [facility] Lab (1st floor, no room number) [place] [address], [facility] * (ABNORMAL) CBC with platelets (02/26/2024 6:10 AM CDT) [facility] Signature WBC Count 6.5 4.0 - [...] LAB - BLOOD ORDER NADIA RH LABORATORY [facility] [address] Lab (1st floor, no room number) [place] [address], [facility] * (ABNORMAL) Ferritin (02/26/2024 6:10 AM CDT) Pathologist [facility] Ferritin 1,463(H) 31 - 409 ng/mL 02/26/2024 12:37 PM CDT [facility] LABORATORY Blood STRUCTURE OF RIGHT HAND / Unknown Venipuncture / Unknown 02/26/2024 6:10 AM CDT 02/26/2024 6:20 AM CDT Momo Hercules MD LAB - BLOOD ORDERABL ES [facility] LAB[facility]AT[facility] [address] [facility], [address] [place] [address], [facility] * (ABNORMAL) Iron and iron binding [...] MD LAB - BLOOD ORDERABL ES LABORATORY [facility] [address] Lab (1st floor, no room number) [place] [address] * [...] EXAM: CT ABDOMEN PELVIS W CONTRAST LOCATION: [facility] DATE: 02/25/2024 INDICATION: Varices on [...] EXAM: CT ABDOMEN PELVIS W CONTRAST LOCATION: [facility] DATE: 02/25/2024 INDICATION: Varices on [...] lytic changes involving the superior aspect of [id number] body (series 3, image 137) with some [...] (02/25/2024 3:01 PM CDT) Upper GI Endoscopy [facility] Patient Name: Herminio Victor ? Procedure [...] ?Olympus Gastroscope, Model # [id number], Censitrac # [id number] was introduced through the mouth, and ?advanced [...] Note Initiated On: 02/25/2024 3:01 PM MRN: ?[id number] Procedure Date: ? 02/25/2024 3:01:34 PM Total [...] PA-C LAB - BLOOD ORDERABL ES LABORATORY [facility] [address] [facility] Lab (1st floor, no room number) [place] [address], [facility] * (ABNORMAL) INR (02/25/2024 9:28 AM CDT) INR 3.00(H) 0.85 - 1.15 02/25/2024 9:46 AM CDT LABORATORY Blood BLOOD SPECIMEN / Unknown Venipuncture / Unknown 02/25/2024 9:28 AM CDT 02/25/2024 9:32 AM CDT Georgia Perez DO LAB - BLOOD ORDER NADIA [facility] Acute Care Lab [address] Lab (1st floor, no room number) [place] [address] * Hepatitis B surface antigen (02/25/2024 6:45 AM CDT) Pathologist [facility] Hepatitis B Surface Antigen Nonreactive Nonreactive 02/25/2024 10:36 AM CDT LABORATORY Blood STRUCTURE OF LEFT UPPER LIMB / Unknown Venipuncture / Unknown 02/25/2024 6:45 AM CDT 02/25/2024 6:51 AM CDT Mann Brush DO LAB - BLOOD ORDERABL ES LABORATORY [facility] [address] [facility], [address] [place] [address] * (ABNORMAL) Hemoglobin (02/25/2024 6:45 AM CDT) Hemoglobin 7.8(L) 13.3 - 17.7 g/dL 02/25/2024 7:29 AM CDT LABORATORY Blood STRUCTURE OF LEFT UPPER LIMB / Unknown Venipuncture / Unknown 02/25/2024 6:45 AM CDT 02/25/2024 6:51 AM CDT Gómez Blackwood PA-C LAB - BLOOD ORDERABL ES [facility] [address] Lab (1st floor, no room number) [place] [address], [facility] * (ABNORMAL) CBC with platelets (02/25/2024 [...] LAB - BLOOD ORDERABL ES RH LABORATORY [facility] [address] [facility] Lab (1st floor, no room number) [place] [address], [facility] * (ABNORMAL) Basic metabolic panel (02/25/2024 [...] PA-C LAB - BLOOD ORDERABL ES LABORATORY [facility] [address] [facility] Lab (1st floor, no room number) [place] [address], [facility] * Transfuse red blood cells (unit) (02/25/2024 12:35 AM CDT) Mazin Srivastava MD BLOOD TRANSFUSION OR DERABLES * Transfuse red blood cells (unit), 1 Units (02/25/2024 12:35 AM CDT) Mazin Srivastava MD BLOOD TRANSFUSION OR DERABLES * Prepare red blood cells (unit) (02/24/2024 9:17 PM CDT) Blood Component Type Red Blood Cells RH BLOOD BANK Product Code F5664I96 RH BLOO D BANK Unit Status Transfused RH BLOO D BANK Unit Number [id number] RH B LOOD BANK CROSSMATCH Compatible RH BLOOD BANK CODING SYSTEM [id number] RH BLO OD BANK ISSUE DATE AND TIME [id number] RH BLOOD BANK UNIT ABO/RH O+ RH BLOOD BANK UNIT TYPE ISBT 5100 RH BL OOD BANK 02/24/2024 9:17 PM CDT Mazin Srivastava MD BLOOD BANK PRODUCT O RDERABLES Performing Organization Address City/[facility]/ZIP Co de Phone Number RH BLOOD BANK [address] [place] [address] * Transfuse red blood cells (unit) (02/24/2024 9:11 PM CDT) Mazin Srivastava MD BLOOD TRANSFUSION OR DERABLES * Transfuse red blood cells (unit), 1 Units (02/24/2024 9:11 PM CDT) Mazin Srivastava MD BLOOD TRANSFUSION OR DERABLES * Prepare red blood cells (unit) (02/24/2024 6:19 PM CDT) Blood Component Type Red Blood Cells RH BLOOD BANK Product Code Z4349E85 RH BLOO D BANK Unit Status Transfused RH BLOO D BANK Unit Number [id number] RH B LOOD BANK CROSSMATCH Compatible RH BLOOD BANK CODING SYSTEM [id number] RH BLO OD BANK ISSUE DATE AND TIME [id number] RH BLOOD BANK UNIT ABO/RH O+ RH BLOOD BANK UNIT TYPE ISBT 5100 RH BL OOD BANK 02/24/2024 6:19 PM CDT Jae Noel MD BLOOD BANK PRODUCT O RDERABLES Performing Organization Address [facility] Co de Phone Number RH BLOOD BANK [address] [place] [address] * (ABNORMAL) Hemoglobin (02/24/2024 5:51 PM CDT) Hemoglobin 6.7(LL) 13.3 - 17.7 g/dL 02/24/2024 6:14 PM CDT RH LABORATORY Blood STRUCTURE OF LEFT UPPER LIMB / Unknown Venipuncture / Unknown 02/24/2024 5:51 PM CDT 02/24/2024 6:00 PM CDT Gómez Blackwood PA-C LAB - BLOOD ORDERABL ES LABORATORY [facility] [address] [facility] Lab (1st floor, no room number) [place] [address] * Transfuse red blood cells (unit) (02/24/2024 2:35 PM CDT) Jae Noel MD BLOOD TRANSFUSION OR DERABLES * Transfuse red blood cells (unit), 1 Units (02/24/2024 2:35 PM CDT) Jae Noel MD BLOOD TRANSFUSION OR DERABLES * Prepare red blood cells (unit) (02/24/2024 11:35 AM CDT) Blood Component Type Red Blood Cells RH BLOOD BANK Product Code [id number] RH BLOO D BANK Unit Status Transfused RH BLOO D BANK Unit Number [id number] RH B LOOD BANK CROSSMATCH Compatible RH BLOOD BANK CODING SYSTEM [id number] RH BLO OD BANK ISSUE DATE AND TIME [id number] RH BLOOD BANK UNIT ABO/RH O+ RH BLOOD BANK UNIT TYPE ISBT 5100 RH BL OOD BANK 02/24/2024 11:3 5 AM CDT Jae Noel MD BLOOD BANK PRODUCT O RDERABLES BLOOD BANK [address] [place] [address] * (ABNORMAL) Occult blood stool (02/24/2024 11:31 AM CDT) Occult Blood Positive(A ) Negative JOJO 02/24/2024 11:40 AM CDT RH LABORATORY Stool RECTAL CONTENTS / Unknown Non-blood Collection / Unknown 02/24/2024 11:31 AM CDT 02/24/2024 11:38 AM CDT Jae Noel MD LAB - STOOLS ORDERAB LES [facility] [address] [facility] Lab (1st floor, no room number) [place] [address], [facility] * CT Head w/o Contrast (02/24/2024 10:42 AM CDT) Anatomical Region Laterality Modality Head, SUBRAD CT NEURO, SUBRA D CT NEURO, UMP CT NEURO, RAD CT Computed Tomography Impressions 02/24/2024 11:11 AM CDT IMPRESSION: 1. No acute intracranial pathology. 2. Chronic small vessel ischemic disease and generalized cerebral volume loss. FLAKO ZUNIGA MD SYSTEM ID: ??[id number] Narrative 02/24/2024 11:11 AM CDT EXAM: CT HEAD W/O CONTRAST ??02/24/2024 10:42 AM HISTORY: ??Altered mental status, cocnern for ICH, on coumadin ?? COMPARISON: ??No prior similar studies TECHNIQUE: Using multidetector thin collimation helical acquisition technique, axial, coronal and sagittal CT images from the skull base to the vertex were obtained without intravenous contrast. Structural Metal Fabricator Apprentice (topogram) image(s) also obtained and reviewed. Dose [...] the vertex were obtained without intravenous contrast. Structural Metal Fabricator Apprentice (topogram) image(s) also obtained and reviewed. Dose [...] volume loss. FLAKO ZUNIGA MD SYSTEM ID: [id number] Jae Noel MD IMG CT ORDERABLES * [...] LAB - BEAKER POCT RH LABORATORY POC [facility] Acute [facility] Lab [address] Lab (1st floor, no room number) [place] [address] * [...] RESULTS QTc 432 ms RADIOLOGY RESULTS P [place] 49 degrees RADIOLOGY RESULTS R AXIS 6 degrees RADIOLOGY RESULTS T [place] 36 degrees RADIOLOGY RESULTS Interpretation ECG Sinus rhythm with 1st degree A-V block Otherwise normal ECG When compared with ECG of 16-DEC-2015 14:48, Criteria for Septal infarct are no longer Present Unconfirmed report - interpretation of this ECG is computer generated - see medical record for final interpretation Confirmed by - EMERGENCY ROOM, PHYSICIAN ([id number]), editor house organ YISSEL VELASQUEZ ([id number]) on 02/24/2024 10:54:14 AM RADIOLOGY RESULTS 02/24/2024 10:1 2 AM CDT 02/24/2024 10:54 AM CDT Jae Noel MD ECG ORDERABLES RADIOLOGY RESULTS * Adult Type and Screen (02/24/2024 10:07 AM CDT) ABO/RH(D) O POS 02/24/2024 10:08 AM CDT RH BLOOD BANK Antibody Screen Negative Negative 02/24/2024 10:08 AM CDT RH BLOOD BANK SPECIMEN EXPIRATION DATE [id number] 02/24/2024 10:08 AM CDT RH BLOOD BANK Blood STRUCTURE OF RIGHT UPPER LIMB / Unknown Venipuncture / Unknown 02/24/2024 10:07 AM CDT 02/24/2024 10:12 AM CDT Jae Noel MD LAB - BLOOD BANK SHANNON T ORDER RH BLOOD BANK [address] [place] [address], [facility] * Ammonia (02/24/2024 10:06 AM CDT) Ammonia 26 16 - 60 umol/L 02/24/2024 10:32 AM CDT RH LABORATORY Blood STRUCTURE OF RIGHT UPPER LIMB / Unknown Venipuncture / Unknown 02/24/2024 10:06 AM CDT 02/24/2024 10:13 AM CDT Jae Noel MD LAB - BLOOD ORDERABL ES RH LABORATORY [facility] Lab [address] [facility] [address] Lab (1st floor, no room number) [place] [address], [facility] * (ABNORMAL) CBC with platelets and [...] LAB - BLOOD ORDERABL ES RH LABORATORY [facility] [address] [facility] ([facility] floor, no room number) [place] [address], [facility] * (ABNORMAL) INR (02/24/2024 9:58 AM CDT) INR 2.46(H) 0.85 - 1.15 02/24/2024 10:26 AM CDT RH LABORATORY Blood STRUCTURE OF RIGHT UPPER LIMB / Unknown Venipuncture / Unknown 02/24/2024 9:58 AM CDT 02/24/2024 10:11 AM CDT Jae Noel MD LAB - BLOOD ORDERABL ES LABORATORY [facility] [address] [facility] Lab (1st floor, no room number) [place] [address], [facility] * (ABNORMAL) Comprehensive metabolic panel (02/24/2024 [...] MD LAB - BLOOD ORDERABL ES LABORATORY [facility] [address] Lab (1st floor, no room number) [place] [address], [facility] * Extra Purple Top Tube (02/24/2024 9:58 AM CDT) Pathologist [facility] Hold Specimen [facility] 02/24/2024 11:16 AM CDT RH LABORATORY Blood STRUCTURE OF RIGHT UPPER LIMB / Unknown Venipuncture / Unknown 02/24/2024 9:58 AM CDT 02/24/2024 10:11 AM CDT Jae Noel MD LAB - BLOOD ORDERABL ES Performing Organization Address City/[facility]/ZIP Co de Phone Number [facility] [address] Lab (1st floor, no room number) [place] [phone] [place] [address] * Extra Green Top (Deal Heparin) Tube (02/24/2024 9:58 AM CDT) Hold Specimen [facility] 02/24/2024 11:16 AM CDT RH LABORATORY Blood STRUCTURE OF RIGHT UPPER LIMB / Unknown Venipuncture / Unknown 02/24/2024 9:58 AM CDT 02/24/2024 10:11 AM CDT Jae Noel MD LAB - BLOOD ORDERABL ES Performing Organization Address [facility]/ZIP Co de Phone Number [facility] Lab [address] Lab (1st floor, no room number) [address] [place] [address] * Extra Blue Top Tube (02/24/2024 9:58 AM CDT) Hold Specimen [facility] 02/24/2024 11:16 AM CDT RH LABORATORY Blood STRUCTURE OF RIGHT UPPER LIMB / Unknown Venipuncture / Unknown 02/24/2024 9:58 AM CDT 02/24/2024 10:11 AM CDT Jae Noel MD LAB - BLOOD ORDERABL ES Performing Organization Address City/[facility]/ZIP Co de Phone Number [facility] [address] Lab (1st floor, no room number) [place] [id number] documented in this encounter Visit Diagnoses [...] on 02/25/24 at 1421, For 1 dose, Somers throat with 1 spray 5 minutes prior [...] on 02/25/24 at 1421, For 1 dose, Somers throat with 1 spray 5 minutes prior [...] stools. documented in this encounter Care Teams Greige Mender Relationship Specialty Start Date End Date Preet Huff PCP - General 06/24/11 documented as of this encounter
--- OUTSIDE RECORDS SUMMARY | 2024-06-04 15:47 | XMS_ITS | Encounter Summary ---
Author Organization [place] Address [address] [place] [address] Care Team Providers Care Court Administrator Name Role Phone Refugio Preet Hans Primary Care Provider [phone] Encounter Details Date Type Department Care Team (Late Contact Info) Description 02/08/2022 External Order Results [facility] [address] [place] [address] Outside, Provider Social History Tobacco Use Types Packs/Day Years Used Date Smoking Tobacco: Never Smokeless Tobacco: Never Alcohol Use Standard Drinks/Week Comments No 0 (1 standard drink = 0.6 oz pur e alcohol) PHQ-2 Answer Date Recorded PHQ-2 Score 0 10/18/2018 Sex and Gender Information Value Date Recorded Sex Assigned at Not on file Gender Identity Male 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 No / Unsure 02/11/2022 8:53 AM CDT documented as of this encounter Plan of Treatment Upcoming Encounters Date Type Department Care Team (Late Contact Info) Description 07/05/2024 1:15 PM CDT Office Visit [address] [address] Lizandro Barron MD [address] [id number] documented as of this encounter Procedures Procedure [...] on filedocumented in this encounter Care Teams Court Administrator Relationship Specialty Start Date End Date rPeet Huff PCP - General 06/24/11 documented as of this encounter
--- OUTSIDE RECORDS SUMMARY | 2024-06-04 15:47 | XMS_ITS ---
Author Organization [place] Address [address] [place] [address] Care Team Providers Care Storage Manager Name Role Phone Preet Huff Primary Care Provider [phone] Transitional Care Management Status:Closed (Closed) Start date:02/27/2024 Enrollment date:02/27/2024 End date:03/12/2024 Close reason:Goals met Continued Care and Services Coordination
--- OUTSIDE RECORDS SUMMARY | 2024-06-04 15:47 | XMS_ITS ---
Author Organization [place] Address [address] [place] [address] Care Team Providers Care Amusement Or Recreation Card Checker Name Role Phone Preet Huff Primary Care Provider [phone] Transitional Care Management Status:Enrolled (Active) Start date:05/31/2024 Enrollment date:06/01/2024 Continued Care and Services Coordination
--- OUTSIDE RECORDS SUMMARY | 2024-06-04 15:47 | XMS_ITS | Encounter Summary ---
Author Organization [place] Address [address] [facility] [place] [address] Care Team Providers Care Photoengraving Etcher Apprentice Name Role Phone Preet Huff Hans Primary Care Provider [phone] Jaxon Saravia MD Unavailable [phone] Encounter Details Date Type Department Care Team (Late Contact Info) Description 10/20/2011 Hospital PHYS STANDARD [address] [phone] Wojciech Holman MD [facility] [address] [place] [id number] ESRD (end stage renal disease) on dialysis (H); Hyperkalemia Social History Tobacco Use Types Packs/Day Years Used Date Smoking Tobacco: Never Smokeless Tobacco: Never Alcohol Use Standard Drinks/Week Comments No 0 (1 standard drink = 0.6 oz pur e alcohol) Sex and Gender Information Value Date Recorded Sex Assigned at Not on file Gender Identity Male 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 Sexual Orientation Not on file documented as of this encounter Plan of Treatment Upcoming Encounters Date Type Department Care Team (Late Contact Info) Description 07/05/2024 1:15 PM CDT Office Visit [address] [phone] Lizandro Barron MD [address] [place] [address] documented as of this encounter Visit Diagnoses Diagnosis ESRD (end stage renal disease) on dialysis (H) End stage renal disease Hyperkalemia Hyperpotassemia documented in this encounter Care Teams Photoengraving Etcher Apprentice Relationship Specialty Start Date End Date Preet Huff PCP - General 06/24/11 Jaxon Saravia MD [address] [place] [address] Assigned Heart and Vascular Provider 08/01/20 12/06/20 documented as of this encounter
--- OUTSIDE RECORDS SUMMARY | 2024-06-04 15:47 | XMS_ITS | Encounter Summary ---
Author Organization [place] Address [address] [place] [address] Care Team Providers Care Technical Support Professional Name Role Phone Preet Huff Primary Care Provider [phone] Jaxon Saravia MD Unavailable [phone] Encounter Details Date Type Department Care Team (Late st Contact Info) Description 12/21/[address] [facility] Interventional Radiology 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 Sexual Orientation Not on file documented as of this encounter Plan of Treatment Upcoming Encounters Date Type Department Care Team (Late st Contact Info) Description 07/05/2024 1:15 PM CDT Office Visit [address] [address] Lizandro Barron MD [address] [place] [address] documented as of this encounter Visit Diagnoses Not on filedocumented in this encounter Care Teams Technical Support Professional Relationship Specialty Start Date End Date Preet Huff PCP - General 06/24/11 Jaxon Saravia MD [address] [place] [address] Assigned Heart and Vascular Provider 08/01/20 12/06/20 documented as of this encounter
--- OUTSIDE RECORDS SUMMARY | 2024-06-04 15:47 | XMS_ITS | Encounter Summary ---
Author Organization [facility] Address [address] [place] [address] Care Team Providers Care Customer Program Manager Name Role Phone Preet Huff Primary Care Provider [phone] Reason for Visit * Reason Comments Altered [...] [facility] [address] [place] [address] Referral ID Status Reason Start Date Expiration Date Visits Re quested Visits Authorized [id number] 1 1 Encounter Details Date Type Department Care Team (Late st Contact Info) Description 02/25/2024 2:50 PM CDT - 02/25/2024 3:25 PM CDT Surgery [facility] Endoscopy [place] [address] [place] [address] Momo Hercules MD [facility] [place] [address] [facility] [phone] Esophagoscopy, gastroscopy, duodenoscopy (EGD), combined Surgery Details [...] file Gender Identity Male 12/05/2017 10:39 AM SEO EXECUTIVE Sexual Orientation Not on file documented as [...] Perez DO - 02/26/2024 3:13 PM CDT [facility] Hospitalist Discharge Summary Date [...] confusion noted by family. Patient was[facility] on [facility]/22 evening for concerns about [...] his mother and aunt who is his MEDICAL OBSERVER. He is legally blind as well. Hx [...] minutes discharging this patient. Georgia Perez DO [place] [address] MEDICAL SURGICAL [address] [facility] [address] Physical Exam Vital Signs: Temp: 97.6 ??F [...] is related to your kidney disease. Your director of hotel will help with it. Follow-up and recommended [...] the vertex were obtained without intravenous contrast. Fruit I Farmworker (topogram) image(s) also obtained and reviewed. Dose [...] volume loss. FLAKO ZUNIGA MD SYSTEM ID: [id number] CT Abdomen Pelvis w Contrast Narrative EXAM: CT ABDOMEN PELVIS W CONTRAST LOCATION: [facility] DATE: 02/25/2024 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 [...] sent through Care Everywhere. * Esophageal Varices (South Korean) documented in this encounter Medications at Time [...] mom (Arianna), aunt (Thelma) who is alsohis MEDICAL OBSERVER, cousin (Aron) who is also his MEDICAL OBSERVER, and another cousin (Javon). Patient reports there are no stairs at home. Self-Care Usual Activity Tolerance good Current Activity Tolerance moderate Equipment Currently Used at Home none Fall history within last six months no (Per patient) Activity/Exercise/Self-Care Comment Patient's family provides 10 hours of MEDICAL OBSERVER services per day, cousin cares for patient [...] Evaluation Time PT Eval, Moderate Complexity Minutes (43938) 8 Physical Therapy Goals PT Frequency Daily PT Predicted Duration/Target Date for Goal Attainment 02/29/24 PT Goals Bed Mobility;Transfers;Gait PT: Bed Mobility Supine to/from sit;Rolling;Supervision/stand-by assist PT: Transfers Supervision/stand-by assist;Sit to/from stand;Bed to/from chair PT: Gait Supervision/stand-by assist;150 feet Interventions Interventions Quick Adds Therapeutic Activity Therapeutic Activity Therapeutic Activities: dynamic activities to improve functional performance Minutes (17952) 8 Symptoms Noted During/After Treatment Fatigue Treatment [...] lives with family, has 10 hours of MEDICAL OBSERVER assist per day. Anticipate discharge home with [...] checked every 4 hours. Outpatient Dialysis at [facility] Patient weight shifting, unable to make large shifts due to AVF in thigh Post treatment report given to Andre Franklin RN, RN Please remove patient dressing on AVF and AVG needle sites 24 hours after dialysis. If leaking occurs please apply a Band-Aid. * Georgia Perez DO - 02/25/2024 9:11 AM CDT [facility] Medicine Progress Note - [...] Per his Aunt, patient was seen at [facility] on 02/22 evening for concerns about [...] his mother and aunt who is his MEDICAL OBSERVER. He is legally blind as well. Hx [...] 2-4 Days Georgia Perez DO Hospitalist Service [facility] Securely message with [employer] (more info) Text page via [employer] Paging/Directory Interval History No acute overnight events. [...] End-stage renal disease: Chronic Tuesday dialysis at [facility] Airplane Pilot Supervisor: Dr. Holman Access: Left thigh AV graft, [...] evaluation ongoing, possible EGD Mann Brush DO [facility] consultants Office: [phone] Interval History: Patient seen during dialysis, admission [...] medications, labs and imaging. Mann Brush DO [facility] - Nephrology Office: [phone] * Mazin Srivastava MD - 02/24/2024 6:19 [...] Blackwood PA-C - 02/24/2024 12:12 PM CDT [facility] History and Physical - [...] Per his Aunt, patient was seen at [facility] on 02/22 evening for concerns about [...] his mother and aunt who is his MEDICAL OBSERVER. He is legally blind as well. Hx [...] provider . GÓMEZ Blackwood PA-C Hospitalist Service [facility] Securely message with [employer] (more info) Text page via [facility] Paging/Directory Chief Complaint Dark stools History is [...] Per his Aunt, patient was seen at [facility] on 02/22 evening for concerns about [...] Informant Patient Reported? Taking? AMLODIPINE BESYLATE PO Dancing Teacher Yes No Sig: Take 10 mg by mouth four times a week On Non dialysis days which is MWFSun BISACODYL PO Dancing Teacher Yes No Sig: Take 10 mg by mouth four times a week (Takes 2 x 5mg tablet = 10mg dose) Tuesday, Tuesday, Tuesday, and Tuesday Calcium Acetate, Phos Binder, (CALCIUM ACETATE PO) Dancing Teacher Yes No Sig: Take 1,334 mg by mouth 3 times daily (with meals) Takes with meals (2 x 667mg tablet) Cholecalciferol (VITAMIN D3 PO) Dancing Teacher Yes No Sig: Take 2,000 Units by mouth every evening LISINOPRIL PO Dancing Teacher Yes No Sig: Take 40 mg by mouth daily (Takes 2 x 20mg tablet = 40mg ) METOPROLOL TARTRATE PO Dancing Teacher Yes No Sig: Take 100 mg by [...] the vertex were obtained without intravenous contrast. Fruit I Farmworker (topogram) image(s) also obtained and reviewed. Dose [...] volume loss. FLAKO ZUNIGA MD SYSTEM ID: [id number] Associated attestation - Georgia Perez DO - [...] Communication Assessment Patient's communication style: spoken language (South Korean or Bilingual) Hearing Difficulty or Deaf: no [...] Support: Care provided by: other (see comments) (MEDICAL OBSERVER who is an aunt,Thelma and cousin Aron) Provides care for: no one, unable/limited ability to care for self Marital Status: Single MEDICAL OBSERVER Description of Support System: Supportive, Involved Current Resources: Patient receiving home care services: No Community Resources: County Programs, County Worker, Dialysis Services, OP Dialysis, MEDICAL OBSERVER, Transportation Services Equipment currently used at home: none Supplies currently used at home: Employment/Financial: Employment Status: unknown Financial Concerns: unknown Does the patient's insurance plan have a 3 day qualifying hospital stay waiver? No Lifestyle & Psychosocial Needs: Social Determinants of Health Food Insecurity: No Food Insecurity (06/23/2022) Received from [facility] Food Insecurity Worried About Running Out of Food in the Last Year: 1 Depression: Not at risk (05/22/2020) Received from [facility] PHQ-2 PHQ-2 Score: 0 Housing Stability: Low Risk (06/23/2022) Received from [facility] Housing Stability Unable to Pay for Housing in the Last Year: 1 Tobacco Use: Medium Risk (11/08/2023) Received from [facility] Patient History Smoking Tobacco Use: Never Smokeless Tobacco Use: Never Passive Exposure: Yes Financial Resource Strain: Low Risk (06/23/2022) Received from [facility] Financial Resource Strain Difficulty of Paying Living Expenses: 3 Difficulty of Paying Living Expenses: Not on file Alcohol Use: Not on file Transportation Needs: No Transportation Needs (06/23/2022) Received from [facility] its learning [facility] Transportation Needs Lack of Transportation (Medical): 1 Physical Activity: Not on file Interpersonal Safety: Not on file Stress: Not on file Social Connections: Unknown (06/24/2023) Received from [facility] its learning [facility] Social Connections Frequency of Communication with Friends [...] No Current Concerns Values/Beliefs: Spiritual, Cultural Beliefs, Voodoo Practices, Values that affect care: Additional Information: Chart reviewed. Emergency numbers listed on face sheet have been updated by SW. SW called and spokewith pt's aunt Thelma [phone] who reports pt lives with his mom Arianna, aunt Thelma who is also his MEDICAL OBSERVER, cousin Aron who is also his MEDICAL OBSERVER and another cousin Javon. They live in a house. Thelma reports Aron cares for pt Tue-Tue and she provides pt's care on Sundays, he receives 10 hrsof MEDICAL OBSERVER services a day. She reports he is on a CADI Waiver. She reports he does not use any assistive devices. He gets dialysis on , W, F at [facility] [phone] and gets transportation there through [place] [facility]. Plan: SW will continue to follow pt and assist with discharge planning. Katja Bronson EMERGENCY CARE TECH, [facility] Inpatient Care Coordination [facility] [phone] * Dinorah Allen APRN LEGAL COUNSEL - 02/24/2024 2:34 PM CDTAssociated Order(s): GASTROENTEROLOGY IP CONSULT Images from the original note were not included. GASTROENTEROLOGY CONSULTATION Herminio Victor [address] [place] [id number] 58 year old male Admission Date/Time: 02/24/2024 [...] has had a colonoscopy or EGD before. RESIDENTIAL AIDE medications reviewed which include omeprazole 20mg daily. [...] to person, tells me he is in [place], slow to respond PSYCH: [facility]: I [...] including patient evaluation, reviewing documentation/test results, and food and beverage order clerk. Thank you for asking us to participate in the care of this patient. Dinorah Allen, ADRIAN [facility] ([facility]) [phone] Associated attestation - Momo Hercules MD - [...] 12:59 PM CDTAssociated Order(s): NEPHROLOGY IP CONSULT [facility] Nephrology Consultation Date of Admission: 02/24/2024 Assessment & Plan Herminio Victor is a 58 year old male who was admitted on 02/24/2024. Assessment: 1) End-stage renal disease: Chronic Tuesday dialysis at [facility] Airplane Pilot Supervisor: Dr. Holman Access: Left thigh AV graft, [...] bleeding workup per hospitalist Mann Brush DO [facility] - Nephrology [phone] Reason for Consult I was asked to see the patient for ESRD management History is obtained from the patient and chart review. History of Present Illness Herminio Victor is a 58 year old male who presents to the emergency room today with some concerns of anemia, GI bleeding. Also some agitation and altered mentation. Patient dialyzes Wednesdays and Fridays at [facility]. Found to have hemoglobin of 6.2 [...] from dialysis unit, last visit by physician internal medicine doctor on 02/13/2024. Past Medical History I have [...] Informant Patient Reported? Taking? AMLODIPINE BESYLATE PO Dancing Teacher Yes No Sig: Take 10 mg by mouth four times a week On Non dialysis days which is MWFSun BISACODYL PO Dancing Teacher Yes No Sig: Take 10 mg by mouth four times a week (Takes 2 x 5mg tablet = 10mg dose) Tuesday, Tuesday, Tuesday, and Tuesday Calcium Acetate, Phos Binder, (CALCIUM ACETATE PO) Dancing Teacher Yes No Sig: Take 1,334 mg by mouth 3 times daily (with meals) Takes with meals (2 x 667mg tablet) Cholecalciferol (VITAMIN D3 PO) Dancing Teacher Yes No Sig: Take 2,000 Units by mouth every evening LISINOPRIL PO Dancing Teacher Yes No Sig: Take 40 mg by mouth daily (Takes 2 x 20mg tablet = 40mg ) METOPROLOL TARTRATE PO Dancing Teacher Yes No Sig: Take 100 mg by [...] Hernandez RN - 02/24/2024 11:51 AM CDT [facility] ED Nurse Handoff Report [...] 2. Lift room needed: Yes. Bariatric: No Internal Audit Manager Needed: No Isolation: No. Infection: Not [...] was sent here. He was seen at [facility] yesterday but nothing was found to be [...] Component Type Red Blood Cells Product Code L8029X34 Unit Status Not used Unit Number [id number] CROSSMATCH Compatible CODING SYSTEM [id number] UNIT ABO/RH O+ UNIT TYPE ISBT 5100 PREPARE RED BLOOD CELLS (UNIT) Blood Component Type Red Blood Cells Product Code Z1708Y26 Unit Status Ready for issue Unit Number [id number] CROSSMATCH Compatible CODING SYSTEM [id number] PREPARE RED BLOOD CELLS (UNIT) TRANSFUSE RED BLOOD CELLS (UNIT) ABO/RH TYPE AND SCREEN CT Head w/o Contrast Final Result IMPRESSION: 1. No acute intracranial pathology. 2. Chronic small vessel ischemic disease and generalized cerebral volume loss. FLAKO ZUNIGA MD SYSTEM ID: [id number] Treatments provided: See MAR Family Comments: NA [...] was sent here. He was seen at [facility] yesterday but nothing was found to be [...] with mom and his aunt is his MEDICAL OBSERVER. Past Medical History Medical History and Problem [...] Component Type Red Blood Cells Product Code M6255S69 Unit Status Not used Unit Number [id number] CROSSMATCH Compatible CODING SYSTEM [id number] UNIT ABO/RH O+ UNIT TYPE ISBT 5100 PREPARE RED BLOOD CELLS (UNIT) Blood Component Type Red Blood Cells Product Code N6676V51 Unit Status Transfused Unit Number [id number] CROSSMATCH Compatible CODING SYSTEM [id number] ISSUE DATE AND TIME [id number] UNIT ABO/RH O+ UNIT TYPE ISBT 5100 PREPARE RED BLOOD CELLS (UNIT) ABO/RH TYPE AND SCREEN Imaging CT Head w/o Contrast Final Result IMPRESSION: 1. No acute intracranial pathology. 2. Chronic small vessel ischemic disease and generalized cerebral volume loss. FLAKO ZUNIGA MD SYSTEM ID: [id number] EKG ECG taken at 1012, ECG read [...] and long-term care needs assisted with his executive personal assistant Aunt Thelma, who presents from dialysis [...] Current Discharge Medication List Scribe Disclosure: Quang Genitle, am serving as a scribe at 11:35 AM on 02/24/2024 to document services personally performed by Jae Noel MD based on my observations and the provider's statements to me. Jae Noel MD 02/24/24 8736 documented in this encounter Miscellaneous Notes * Pharmacy-Anticoagulation Service - John Rosado RPH - 02/26/2024 3:30 PM CDT Images from the original note were not included. 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 INR Goal= 2-3 Warfarin RESIDENTIAL AIDE Regimen: 5 mg M-F Anticoagulation Dose History [...] lives with family, has 10 hours of MEDICAL OBSERVER assist per day. Anticipate discharge home with [...] Documentation Taken 02/25/2024 1609 by Ramila Singh, grill cook Interventions: care clustered essential oils Goal: Readiness [...] shift note. Outcome: Progressing Flowsheets (Taken 02/24/2024 8677) Outcome Evaluation: Hgb 6.7 at 1800 recheck. [...] Fall Risk Recent Flowsheet Documentation Taken 02/24/2024 7815 by Ramila Singh RN Safety Promotion/Fall Prevention: [...] Axel Wiley - 02/24/2024 3:11 PM CDT Rag Production Worker Admission Medication History Admission medication history is complete. The information provided in this note is only as accurateas the sources available at the time of the update. Information Source(s): Family member and CareEverywhere/SureScripts via phone Pertinent Information: Medication list obtained from sister (Thelma) who handles his medications. Changes made to RESIDENTIAL AIDE medication list: Added: Calcium Acetate (snack) Deleted: [...] Completed By: Axel Wiley 02/24/2024 3:11 PM RESIDENTIAL AIDE Med List Medication Sig Last Dose amLODIPine [...] 7:30 PM CDT Medication history completed by commander internal affairs, reviewed by Zuleyka Hopkins, PharmD * Plan [...] 07/05/2024 1:15 PM CDT Office Visit [address] [id number] Lizandro Barron MD [address] [id number] Pending Results Name Type Priority Associated Diagnoses [...] B Surface Antibody (02/26/2024 11:13 AM CDT) [facility] Hepatitis B Surface Antibody Reactive [...] LAB - BLOOD ORDER NADIA U LABORATORY [facility] Core [facility] [address] [facility], [address] [place] [address] * (ABNORMAL) INR (02/26/2024 9:49 AM CDT) INR 1.27(H) 0.85 - 1.15 02/26/2024 10:13 AM CDT LABORATORY Blood STRUCTURE OF RIGHT HAND / Unknown Venipuncture / Unknown 02/26/2024 9:49 AM CDT 02/26/2024 9:58 AM CDT Georgia Perez LAB - BLOOD ORDER NADIA LABORATORY [facility] Acute Care Lab [address] [facility] Lab (1st floor, no room number) [place] [address] * (ABNORMAL) Renal panel (02/26/2024 6:10 [...] DO LAB - BLOOD ORDER NADIA LABORATORY [facility] Acute Care Lab [address] Lab (1st floor, no room number) [place] [address], [facility] * (ABNORMAL) CBC with platelets [...] DO LAB - BLOOD ORDER NADIA LABORATORY [facility] Acute Care Lab [address] [facility] Lab (1st floor, no room number) [place] [address], [facility] * (ABNORMAL) Ferritin (02/26/2024 6:10 AM CDT) Pathologist [facility] Ferritin 1,463(H) 31 - 409 ng/mL 02/26/2024 12:37 PM CDT UU LABORATORY Blood STRUCTURE OF RIGHT HAND / Unknown Venipuncture / Unknown 02/26/2024 6:10 AM CDT 02/26/2024 6:20 AM CDT Momo Hercules MD LAB - BLOOD ORDERABL ES [facility] LABORATORY [facility] [address] [facility] [address], [address] [place] [address] * (ABNORMAL) Iron and iron binding [...] MD LAB - BLOOD ORDERABL ES LABORATORY [facility] Acute Care Lab [address] Lab (1st floor, no room number) [place] [address] * CT Abdomen Pelvis w Contrast [...] EXAM: CT ABDOMEN PELVIS W CONTRAST LOCATION: [facility] DATE: 02/25/2024 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 [...] EXAM: CT ABDOMEN PELVIS W CONTRAST LOCATION: [facility] DATE: 02/25/2024 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 [...] lytic changes involving the superior aspect of [id number] body (series 3, image 137) with some [...] (02/25/2024 3:01 PM CDT) Upper GI Endoscopy [facility] Patient Name: Herminio Victor [...] ?Olympus Gastroscope, Model # [id number], Censitrac # [id number] was introduced through the mouth, and ?advanced [...] Note Initiated On: 02/25/2024 3:01 PM MRN: ?[id number] Procedure Date: ? 02/25/2024 3:01:34 PM Total Procedure Duration: 0 hours 2 minutes 56 seconds Estimated Blood Loss: ? Scope In: 3:19:43 PM Scope Out: 3:22:39 PM RADIOLOGY RESULTS 02/25/2024 3:01 PM CDT Momo Hercules MD PROCEDURES Performing Organization Address [facility] Co de Phone Number RADIOLOGY RESULTS * (ABNORMAL) Hemoglobin (02/25/2024 11:58 AM CDT) Hemoglobin 8.5(L) 13.3 - 17.7 g/dL 02/25/2024 12:03 PM CDT RH LABORATORY Blood STRUCTURE OF RIGHT HAND / Unknown Venipuncture / Unknown 02/25/2024 11:58 AM CDT 02/25/2024 12:01 PM CDT Gómez Blackwood PA-C LAB - BLOOD ORDERABL ES Performing Organization Address City/State/[facility] Co de Phone Number RH LABORATORY [facility] Acute Care Lab [address] [facility] Lab (1st floor, no room number) [place] [address] * (ABNORMAL) INR (02/25/2024 9:28 AM CDT) INR 3.00(H) 0.85 - 1.15 02/25/2024 9:46 AM CDT LABORATORY Blood BLOOD SPECIMEN / Unknown Venipuncture / Unknown 02/25/2024 9:28 AM CDT 02/25/2024 9:32 AM CDT Georgia Perez DO LAB - BLOOD ORDER NADIA [facility] Lab [address] Lab (1st floor, no room number) [place] [phone] * Hepatitis B surface antigen (02/25/2024 6:45 AM CDT) Hepatitis B Surface Antigen Nonreactive Nonreactive 02/25/2024 10:36 AM CDT LABORATORY Blood STRUCTURE OF LEFT UPPER LIMB / Unknown Venipuncture / Unknown 02/25/2024 6:45 AM CDT 02/25/2024 6:51 AM CDT Mann Brush DO LAB - BLOOD ORDERABL ES LABORATORY [facility] [address] [facility], [address] [place] [address] * (ABNORMAL) Hemoglobin (02/25/2024 6:45 AM CDT) Hemoglobin 7.8(L) 13.3 - 17.7 g/dL 02/25/2024 7:29 AM CDT LABORATORY Blood STRUCTURE OF LEFT UPPER LIMB / Unknown Venipuncture / Unknown 02/25/2024 6:45 AM CDT 02/25/2024 6:51 AM CDT Gómez Blakcwood PA-C LAB - BLOOD ORDERABL ES [facility] Acute Care Lab [address] Lab (1st floor, no room number) [place] [address] * (ABNORMAL) CBC with platelets (02/25/2024 [...] PA-C LAB - BLOOD ORDERABL ES LABORATORY [facility] Acute Care Lab [address] Lab (1st floor, no room number) [place] [address], [facility] * (ABNORMAL) Basic metabolic panel [...] PA-C LAB - BLOOD ORDERABL ES LABORATORY [facility] Acute Care Lab [address] Lab (1st floor, no room number) [place] [address], [facility] * Transfuse red blood cells (unit) (02/25/2024 12:35 AM CDT) Mazin Srivastava MD BLOOD TRANSFUSION OR DERABLES * Transfuse red blood cells (unit), 1 Units (02/25/2024 12:35 AM CDT) Mazin Srivastava MD BLOOD TRANSFUSION OR DERABLES * Prepare red blood cells (unit) (02/24/2024 9:17 PM CDT) Blood Component Type Red Blood Cells RH BLOOD BANK Product Code M0894R75 RH BLOO D BANK Unit Status Transfused RH BLOO D BANK Unit Number [id number] RH B LOOD BANK CROSSMATCH Compatible RH BLOOD BANK CODING SYSTEM [id number] RH BLO OD BANK ISSUE DATE AND TIME [id number] RH BLOOD BANK UNIT ABO/RH O+ RH BLOOD BANK UNIT TYPE ISBT 5100 RH BL OOD BANK 02/24/2024 9:17 PM CDT Mazin Srivastava MD BLOOD BANK PRODUCT O RDERABLES Performing Organization Address [facility] Co de Phone Number RH BLOOD BANK [address] [place] [address] * Transfuse red blood cells (unit) (02/24/2024 9:11 PM CDT) Mazin Srivastava MD BLOOD TRANSFUSION OR DERABLES * Transfuse red blood cells (unit), 1 Units (02/24/2024 9:11 PM CDT) Mazin Srivastava MD BLOOD TRANSFUSION OR DERABLES * Prepare red blood cells (unit) (02/24/2024 6:19 PM CDT) Blood Component Type Red Blood Cells RH BLOOD BANK Product Code L6134S95 RH BLOO D BANK Unit Status Transfused RH BLOO D BANK Unit Number [id number] RH B LOOD BANK CROSSMATCH Compatible RH BLOOD BANK CODING SYSTEM [id number] RH BLO OD BANK ISSUE DATE AND TIME [id number] RH BLOOD BANK UNIT ABO/RH O+ RH BLOOD BANK UNIT TYPE ISBT 5100 RH BL OOD BANK 02/24/2024 6:19 PM CDT Jae Noel MD BLOOD BANK PRODUCT O RDERABLES Performing Organization Address City/[facility]/ZIP Co de Phone Number RH BLOOD BANK [address] [place] [address] * (ABNORMAL) Hemoglobin (02/24/2024 5:51 PM CDT) Pathologist [facility] Hemoglobin 6.7(LL) 13.3 - 17.7 g/dL 02/24/2024 6:14 PM CDT RH LABORATORY Blood STRUCTURE OF LEFT UPPER LIMB / Unknown Venipuncture / Unknown 02/24/2024 5:51 PM CDT 02/24/2024 6:00 PM CDT Gómez Blackwood PA-C LAB - BLOOD ORDERABL ES LABORATORY [facility] Acute Care Lab [address] [facility] Lab (1st floor, no room number) [place] [address] * Transfuse red blood cells (unit) (02/24/2024 2:35 PM CDT) Jae Noel MD BLOOD TRANSFUSION OR DERABLES * Transfuse red blood cells (unit), 1 Units (02/24/2024 2:35 PM CDT) Jae Noel MD BLOOD TRANSFUSION OR DERABLES * Prepare red blood cells (unit) (02/24/2024 11:35 AM CDT) Pathologist [facility] Blood Component Type Red Blood Cells RH BLOOD BANK Product Code [id number] RH BLOO D BANK Unit Status Transfused RH BLOO D BANK Unit Number [id number] RH B LOOD BANK CROSSMATCH Compatible RH BLOOD BANK CODING SYSTEM [id number] RH BLO OD BANK ISSUE DATE AND TIME [id number] RH BLOOD BANK UNIT ABO/RH O+ RH BLOOD BANK UNIT TYPE ISBT 5100 RH BL OOD BANK 02/24/2024 11:3 5 AM CDT Jae Noel MD BLOOD BANK PRODUCT O RDERABLES BLOOD BANK [address] [place] [address] * (ABNORMAL) Occult blood stool (02/24/2024 11:31 AM CDT) Pathologist [facility] Occult Blood Positive(A ) Negative [facility] 02/24/2024 11:40 AM CDT LABORATORY Stool RECTAL CONTENTS / Unknown Non-blood Collection / Unknown 02/24/2024 11:31 AM CDT 02/24/2024 11:38 AM CDT Jae Noel MD LAB - STOOLS ORDERAB LES LABORATORY [facility] Acute Care Lab [address] [facility] Lab (1st floor, no room number) [place] [address] * CT Head w/o Contrast (02/24/2024 10:42 AM CDT) Anatomical Region Laterality Modality Head, SUBRAD CT NEURO, SUBRA D CT NEURO, UMP CT NEURO, RAD CT Computed Tomography Impressions 02/24/2024 11:11 AM CDT IMPRESSION: 1. No acute intracranial pathology. 2. Chronic small vessel ischemic disease and generalized cerebral volume loss. FLAKO ZUNIGA MD SYSTEM ID: ??[id number] Narrative 02/24/2024 11:11 AM CDT EXAM: CT HEAD W/O CONTRAST ??02/24/2024 10:42 AM HISTORY: ??Altered mental status, cocnern for ICH, on coumadin ?? COMPARISON: ??No prior similar studies TECHNIQUE: Using multidetector thin collimation helical acquisition technique, axial, coronal and sagittal CT images from the skull base to the vertex were obtained without intravenous contrast. Fruit I Farmworker (topogram) image(s) also obtained and reviewed. Dose [...] the vertex were obtained without intravenous contrast. Fruit I Farmworker (topogram) image(s) also obtained and reviewed. Dose [...] volume loss. FLAKO ZUNIGA MD SYSTEM ID: [id number] Jae Noel MD IM CT ORDERABLES * [...] LAB - BEAKER POCT RH LABORATORY POC [facility] Acute Care Lab [address] Lab (1st floor, no room number) [place] [address] * EKG 12-lead, tracing only (02/24/2024 10:12 AM CDT) Systolic Blood Pressure mmHg RADIOLOGY RESULTS Diastolic Blood Pressure mmHg RADIOLOGY RESULTS Ventricular Rate 77 BPM RAD IOLOGY RESULTS Atrial Rate 77 BPM RADIOLOG Y RESULTS NM Interval 210 ms RADIOLOG Y RESULTS QRS Duration 98 ms RADIOLO GY RESULTS QT 382 ms RADIOLOGY RESULTS QTc 432 ms RADIOLOGY RESULTS P [place] 49 degrees RADIOLOGY RESULTS R AXIS 6 degrees RADIOLOGY RESULTS T [place] 36 degrees RADIOLOGY RESULTS Interpretation ECG Sinus [...] Noel MD ECG ORDERABLES Performing Organization Address [facility] Co de Phone Number RADIOLOGY RESULTS * Adult Type and Screen (02/24/2024 10:07 AM CDT) ABO/RH(D) O POS 02/24/2024 10:08 AM CDT RH BLOOD BANK Antibody Screen Negative Negative 02/24/2024 10:08 AM CDT RH BLOOD BANK SPECIMEN EXPIRATION DATE [id number] 02/24/2024 10:08 AM CDT RH BLOOD BANK Blood STRUCTURE OF RIGHT UPPER LIMB / Unknown Venipuncture / Unknown 02/24/2024 10:07 AM CDT 02/24/2024 10:12 AM CDT Jae Noel MD LAB - BLOOD BANK SHANNON T ORDER BLOOD BANK [address] [place] [address] * Ammonia (02/24/2024 10:06 AM CDT) Ammonia 26 16 - 60 umol/L 02/24/2024 10:32 AM CDT RH LABORATORY Blood STRUCTURE OF RIGHT UPPER LIMB / Unknown Venipuncture / Unknown 02/24/2024 10:06 AM CDT 02/24/2024 10:13 AM CDT Jae Noel MD LAB - BLOOD ORDERABL ES LABORATORY [facility] Lab [address] [facility] Lab (1st floor, no room number) [place] [address] * (ABNORMAL) CBC with platelets and [...] LAB - BLOOD ORDERABL ES RH LABORATORY [facility] Acute Care Lab [address] Lab (1st floor, no room number) [place] [address], [facility] * (ABNORMAL) INR (02/24/2024 9:58 AM CDT) INR 2.46(H) 0.85 - 1.15 02/24/2024 10:26 AM CDT RH LABORATORY Blood STRUCTURE OF RIGHT UPPER LIMB / Unknown Venipuncture / Unknown 02/24/2024 9:58 AM CDT 02/24/2024 10:11 AM CDT Jae Noel MD LAB - BLOOD ORDERABL ES LABORATORY [facility] Lab [address] Lab (1st floor, no room number) [place] [address] * (ABNORMAL) Comprehensive metabolic panel (02/24/2024 [...] LAB - BLOOD ORDERABL ES RH LABORATORY [facility] [address] [facility] ([facility] floor, no room number) [place] [address], [facility] * Extra Purple Top Tube (02/24/2024 9:58 AM CDT) [facility] Hold Specimen [facility] 02/24/2024 11:16 AM CDT RH LABORATORY Blood STRUCTURE OF RIGHT UPPER LIMB / Unknown Venipuncture / Unknown 02/24/2024 9:58 AM CDT 02/24/2024 10:11 AM CDT Jae Noel MD LAB - BLOOD ORDERABL ES [facility] Care Lab [address] Lab (1st floor, no room number) [place] [address], [facility] * Extra Green Top ([place] Heparin) Tube (02/24/2024 9:58 AM CDT) Hold Specimen [facility] 02/24/2024 11:16 AM CDT RH LABORATORY Blood STRUCTURE OF RIGHT UPPER LIMB / Unknown Venipuncture / Unknown 02/24/2024 9:58 AM CDT 02/24/2024 10:11 AM CDT Jae Noel MD LAB - BLOOD ORDERABL ES Performing Organization Address City/[facility]/ZIP Co de Phone Number [facility] [address] Lab (1st floor, no room number) [place] [address], [facility] * Extra Blue Top Tube (02/24/2024 9:58 AM CDT) Hold Specimen [facility] 02/24/2024 11:16 AM CDT RH LABORATORY Blood STRUCTURE OF RIGHT UPPER LIMB / Unknown Venipuncture / Unknown 02/24/2024 9:58 AM CDT 02/24/2024 10:11 AM CDT Jae Noel MD LAB - BLOOD ORDERABL ES [facility] Care Lab [address] Lab (1st floor, no room number) [place] [address], [facility] documented in this encounter Visit [...] on 02/25/24 at 1421, For 1 dose, [place] throat with 1 spray 5 minutes prior [...] stools. documented in this encounter Care Teams Customer Program Manager Relationship Specialty Start Date End Date Preet Huff PCP - General 06/24/11 documented as of this encounter
--- OUTSIDE RECORDS SUMMARY | 2024-06-04 15:47 | XMS_ITS ---
Author Organization [place] Address [address] [place] [address] Care Team Providers Care Merchandise Flow Associate Name Role Phone Preet Huff Primary Care Provider Transitional Care Management Status:Closed (Closed) Start date:03/13/2024 Enrollment date:03/13/2024 End date:2024 Close reason:Goals met Continued Care and Services Coordination
--- OUTSIDE RECORDS SUMMARY | 2024-06-04 15:47 | XMS_ITS | Encounter Summary ---
Author Organization [place] Address [address] [facility] [place] [address] Care Team Providers Care Dispatch Lead Name Role Phone Preet Huff Primary Care Provider [phone] Jaxon Saravia MD Unavailable [phone] Encounter Details Date Type Department Care Team (Late Contact Info) Description 05/07/2013 Orders Only [facility] Interventional Radiology [address] 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 Sexual Orientation Not on file documented as of this encounter Plan of Treatment Upcoming Encounters Date Type Department Care Team (Late Contact Info) Description 07/05/2024 1:15 PM CDT Office Visit [address] [address] Lizandro Barron MD [address] [place] [address] documented as of this encounter Visit Diagnoses Diagnosis Clotted dialysis access (H24)- Primary Mechanical complication of other vascular device, implant, and graft documented in this encounter Care Teams Dispatch Lead Relationship Specialty Start Date End Date Preet Huff PCP - General 06/24/11 Jaxon Saravia MD [address] [place] [address] Assigned Heart and Vascular Provider 08/01/20 12/06/20 documented as of this encounter
--- OUTSIDE RECORDS SUMMARY | 2024-06-04 15:47 | XMS_ITS | Encounter Summary ---
Author Organization [place] Address [address] [place] [address] Care Team Providers Care Internal Grinder Name Role Phone Preet Huff Primary Care Provider [phone] Jaxon Saravia MD Unavailable [phone] Encounter Details Date Type Department Care Team (Late st Contact Info) Description 05/07/2013 Orders Only [facility] Interventional Radiology [address] 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 Sexual Orientation Not on file documented as of this encounter Plan of Treatment Upcoming Encounters Date Type Department Care Team (Late st Contact Info) Description 07/05/2024 1:15 PM CDT Office Visit [address] [address] Lizandro Barron MD [address] [place] [address] documented as of this encounter Visit Diagnoses Not on filedocumented in this encounter Care Teams Internal Grinder Relationship Specialty Start Date End Date Preet Huff PCP - General 06/24/11 Jaxon Saravia MD [address] [place] [address] Assigned Heart and Vascular Provider 08/01/20 12/06/20 documented as of this encounter
== END 2024-06-01 20:11 | disposition home or self-care (01) ==
LOC: AMB 06-04 15:35
PROVIDERS: PCP Internal Medicine Nephrology; Visit Provider Emergency Medicine Emergency Medical Services
DX: R53.1 Weakness (principal); Z99.3 Dependence on wheelchair
CPT/HCPCS: A0425; A0428

== ENCOUNTER 2024-06-28 09:04 | Outpatient (CLI) | payer MEDICARE, MEDICAID, SELFPAY | END 2024-06-28 09:05 | disposition home or self-care (01) | PROVIDERS: PCP Internal Medicine Nephrology; Visit Provider Nurse Practitioner Family | DX: N49.3 Fournier gangrene (principal); B96.89 Other specified bacterial agents as the cause of diseases classified elsewhere; N50.89 Other specified disorders of the male genital organs; E11.22 Type 2 diabetes mellitus with diabetic chronic kidney disease; N18.6 End stage renal disease; Z99.2 Dependence on renal dialysis | CPT/HCPCS: 11042; G0463 ==

== ENCOUNTER 2024-07-05 09:44 | Outpatient (CLI) | payer MEDICARE, MEDICAID, SELFPAY ==
--- OUTSIDE RECORDS SUMMARY | 2024-07-05 09:48 | XMS_ITS | Clinical Summary ---
Author Organization [facility] Address [address] [place] [address] Phone Care Team Providers Care Chalker Soles Name Role Phone Preet Huff MD Primary Care Provider [phone] Medications Medication Sig Dispensed Refills Start Date End Date Status cholecalciferol (VITAMIN D-3) 1000 units tablet 1 tab qd 04/02/2015 Active B Complex Vitamins (VITAMIN B COMPLEX) tablet 1 tab po daily 12/08/2012 Act bill bisacodyl (DULCOLAX) 5 MG EC tablet 2 tabs po bid 04/02/2015 Active B Azqoekh-S-Cvotw Acid (RENAL) 1 MG capsule 1 cap [...] 1982 Influenza Vaccine (#1) 2024 Care Teams Chalker Soles Relationship Specialty Start Date End Date Preet Huff MD [address] [place] [address] PCP - General 10/31/19
--- OUTSIDE RECORDS SUMMARY | 2024-07-05 09:48 | XMS_ITS | Encounter Summary ---
Author Organization [facility] Address [address] [place] [address] Phone Care Team Providers Care Supervisor Drying And Winding Name Role Phone Preet Huff MD Primary Care Provider [phone] Reason for Visit * Reason Comments Med Refill Encounter Details Date Type Department Care Team (Late st Contact Info) Description 02/12/2021 Refill [facility] [address] [facility] [address] [place], [place] [address] María Elena Styles PA [address] [place] [address] Social History Tobacco Use Types Packs/Day Years Used Date Smoking Tobacco: Never Assessed Sex and Gender Information Value Date Recorded Sex Assigned at Not on file Gender Identity Not on file Sexual Orientation Not on file documented as of this encounter Plan of Treatment Not on file documented as of this encounter Visit Diagnoses Not on filedocumented in this encounter Care Teams Supervisor Drying And Winding Relationship Specialty Start Date End Date Preet Huff MD [address] [place] [phone] PCP - General 10/31/19 documented as of this encounter
--- OUTSIDE RECORDS SUMMARY | 2024-07-05 09:48 | XMS_ITS | Encounter Summary ---
Author Organization [facility] Address [address] [place] [address] Phone Care Team Providers Care Balance Wheel Facer Name Role Phone Preet Huff MD Primary Care Provider [phone] Reason for Visit * Reason Comments Med Refill Encounter Details Date Type Department Care Team (Late st Contact Info) Description 03/23/2021 Refill [facility] [address] [facility] [address] [place], [place] [address] María Elena Styles PA [address] [facility] [address] [facility] [address] [place] [address] Social History Tobacco Use Types Packs/Day Years [...] on filedocumented in this encounter Care Teams Balance Wheel Facer Relationship Specialty Start Date End Date Preet Huff MD [address] [place] [phone] PCP - General 10/31/19 documented as of this encounter
--- OUTSIDE RECORDS SUMMARY | 2024-07-05 09:48 | XMS_ITS | Clinical Summary ---
Author Organization [employer] [facility] [employer] Address [place], [place] [address] Care Team Providers Care Tire Room Supervisor Name Role Phone Preet Huff MD Primary Care Provider Allergies Active Allergy Reactions Criticality Noted Date Comments Aspirin GI Bleeding Dihydroxyaluminum Aminoacetate Nausea Only Medium 10/04/2011 GI bleeding Medications Medication Sig Dispensed Refills Start Date End Date Status Diabetic ShoeIndications:Con trolled type 2 diabetes mellitus with complication, without long-term current use of insulin (HC) One pair of diabetic shoes. Diagnosis: diabetes mellitus with foot callous and bony deformity. 1 Units 8 Active wheelchairIndicatio ns:Unsteady gait Wheelchair: Standard with leg rests: Swing away Length of need: 12 months 1 Device 8 Active WalkerIndications:U nsteady gait Rolling Walker for home use. 1 Device 8 Active hospital bedIndications:Foot ulcer, left, with unspecified severity (HC) Hospital bed with rails: Electric, Length of need 99 months. Diagnosis: foot ulcer with need to elevated foot of bed. 1 unit 8 Active bisacodyl (DULCOLAX) 5 mg tabletIndications:C hronic constipation Take 2 tablets by mouth once daily. Tuesday, Tuesday, Tuesday and Tuesday. 0 8 Active warfarin (COUMADIN) 5 mg tabletIndications:A nticoagulation management encounter Take 1 tablet by mouth once daily. 90 tablet 3 9 Active cholecalciferol (D3-2000) 2,000 unit capsuleIndications: Vitamin D deficiency Take 1 capsule by mouth once daily. 90 capsule 3 9 Active durable medical equipment (DME)Indications:Ga it instability Walker with seat 1 Each 9 Active ammonium lactate 12% topical (LACHYDRIN) 12 % lotionIndications:D ry skin,Type 2 diabetes mellitus with pressure callus (HC) Apply topically to affected area(s) 2 times daily. 396 g 5 2 Active b complex-vitamin c-folic acid 1 mg (Triphrocaps) 1 mg capsuleIndications: CKD (chronic kidney disease), stage IV (HC) Take 1 Capsule by mouth once daily. 90 Capsule 3 3 Active Bisacodyl powd Mix 10 mg in liquid then take by mouth. Take 10 mg by mouth four times a week (Takes 2 x 5mg tablet = 10mg dose) Tuesday, Tuesday, Tuesday, and Tuesday Active medical supply, miscellaneous (BLOOD PRESSURE CUFF MISC) Monitor BP at home as instructed 3 Active DOXERCALCIFEROL IV Inject 1 mcg intravenous. 1 mcg intravenously dialysis. Active folic acid/vit B complex and C (RENAL MULTIVITAMIN FORMULA ORAL) Take 1 Capsule by mouth once daily. Active calcitrioL (ROCALTROL) 0.25 mcg capsule Take 0.25 mcg by mouth once daily. Active epoetin mauricio (EPOGEN;PROCRIT) 20,000 unit/mL injection 14,300 units. 14,300 UNITS by IV Push route dialysis. Active atorvastatin (LIPITOR) 20 mg tabletIndications:M ixed hyperlipidemia Take 1 Tablet (20 mg) by mouth once daily. 90 Tablet 3 4 Active Diaper,Brief, Adult,DisposableInd ications:Incontinen ce for home use 119 Each 12 4 Active metoprolol tartrate (LOPRESSOR) 100 mg tabletIndications:H ypertension, unspecified type Take 1 Tablet (100 mg) by mouth once daily. 4 Active amLODIPine (NORVASC) 5 mg tabletIndications:H TN (hypertension) Take 1 Tablet (5 mg) by mouth once daily. 4 Active Calcium Acetate (PHOS-LO) 667 mg capsuleIndications: ESRD (end stage renal disease) (HC) Take 1 Capsule (667 mg) by mouth four times daily with meals and at bedtime. 4 Active pantoprazole (PROTONIX) 40 mg delayed-release tabletIndications:C hronic GERD Take 1 Tablet (40 mg) by mouth two times daily before meals. 180 Tablet 3 4 Active sennosides (SENNA) 8.6 mg tabletIndications:C hronic constipation Take 2 Tablets (17.2 mg) by mouth two times daily. 360 Tablet 3 4 Active CPAPIndications:SHIRLEY (obstructive sleep apnea) RESMED CPAP (E0601) machine for home use at pressure: 5-15cmw, Choice of mask (A7030 or A7034) w/full face cushion (A7031) x1/mo, nasal cushion (A7032) x2/mo, or nasal pillows (A7033) x 2/mo; Length of Need: 99 months; Frequency of use: Daily 1 Each 11 4 Active CPAPIndications:Obs tructive sleep apnea CPAP machine for home use at pressure: 8 cm/H2O , Heated humidifier x 1, Humidifier chamber x 1, 1 unit 11 8 06/07/20 24 Discontinu ed(*Med complete/R egimen complete/L evel of care change) Active Problems Problem Noted Date Diagnosed Date Mita's gangrene of scrotum 05/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/07/2024 Dependence on renal dialysis 11/08/2023 Chronic constipation 06/23/2022 Impaired cognition 09/05/2020 Type 2 diabetes mellitus wit h kidney complication, without long-term current use of insulin 09/30/2016 Subclinical hyperthyroidism 05/24/2015 Vitamin D deficiency 05/21/2015 Mixed hyperlipidemia 07/25/2012 DVT of upper extremity (deep vein thrombosis) jail (current) use of anticoagulants 2010 Secondary hyperparathyroidism (of renal origin) 11/18/2010 ESRD (end stage renal disease) 11/17/2010 Anemia in chronic kidney disease(285.21) 009 Syncope 03/13/2009 Obesity, unspecified 11/15/2007 Proteinuria 09/29/2007 Legal blindness, as defined in [place] 01/06/2007 Unspecified essential hypertension 01/06/2007 SHIRLEY on CPAP Overview (05/23/2015): CPAP Resolved Problems Problem Noted Date Diagnosed [...] Encounters Date Type Department Care Team Description 06/13/2024 Telephone [facility] [address] [facility] [address] Preet Huff MD Follow Up (NO OPENINGS AT WOUND CLINIC) 06/07/2024 2:30 PM CDT Office Visit [facility] [address] [place] [address] Lizandro Singh MD Sleep Follow-up 06/07/2024 2:05 PM CDT Office Visit [facility] [address] [place] [address] [address] Preet Huff MD Hospital F/U (05/30 [facility] -groin infection) 06/07/2024 Travel 05/21/2024 Nurse Triage [facility] [address] [place] [address] Preet Huff MD Testicle Pain from Last 3 Months Immunizations Name Administration [...] Sign Reading Time Taken Comments Blood Pressure 105/62 06/07/2024 2:42 PM CDT Pulse 72 06/07/2024 2:42 PM CDT Temperature 36.9 ??C (98.4 ??F) 05/22/2020 1:36 PM CD T Respiratory Rate 18 06/07/2018 11:08 AM CDT Oxygen Saturation 100% 06/07/2024 2:42 PM CDT Inhaled Oxygen Concentration - - Weight 86.5 kg (190 lb 9.6 oz) 06/07/2024 2:42 P M CDT Height 172.3 cm (5' 7.84) 06/07/2024 2:42 PM CD T Body Mass Index 29.12 06/07/2024 2:42 PM CDT Plan of Treatment Upcoming Encounters Date Type Department Care Team (Late st Contact Info) Description 07/09/2024 3:15 PM CDT Nurse/Clinic Staff Only [facility] [address] [place] [address] Health Maintenance Due Date Last Done Comments Zoster (shingles) series for age 50+ (1 of 2) 2013 Pneumococcal series for age 6-64 (3 of 3 - PPSV23 or PCV20) 03/14/2019 01/17/2019, 12/02/2015, 10/12/2010, Additional history exists Tetanus booster 10/21/2019 10/21/2009 Depression screening for age 12+ 08/13/2020 08/13/2019, 03/15/2017, 02/06/2016 COVID-19 vaccine series (2023- season) 2024 06/23/2022, 01/13/2022, 08/17/2021, Additional history exists Influenza for age 50-64 06/10/2024 06/23/20, 06/23/2022, 08/05/2021, Additional history exists BMI (ht and wt on same day) for age 18+ 06/07/2025 06/07/2024, 11/08/2023, 06/23/2022, Additional history exists Lipids for age 45-75 11/08/2028 11/08/2023, 11/18/2021, 09/05/2020, Additional history exists Colonoscopy through age 75 03/08/203403/08 (Verified in Care Everywhere or Patient Record), 09/24/2013, 09/24/2013 HIV for age 15-65 Completed 03/04/2009 Hepatitis C screening for ag e 18-79 Completed 03/04/2009 Tdap Completed 10/21/2009 Medical Devices Implanted Type Area Welder Fitter Device Identifier Shelf Expiration Date Model / Serial / Lot Cath Peritoneal Cvd 62cm - [id number] Implanted:Qty: 1 on 10/31/2009 at [facility] N/A: Abdomen STIVEN 05/10/2014 [id number] 10 # / / [id number] Procedures Procedure Name Priority Date/Time Associated Diagnosis Comments LIPID PANEL W REFLEX MEASURED LDL Routine 11/08/2023 3:05 PM THEATRE PROGRAM DIRECTOR Mixed hyperlipidemia COLONOSCOPY SCREENING Routine 09/24/2013 12:00 AM THEATRE PROGRAM DIRECTOR Colon cancer screening ANTI HIV 1/2 Timed 03/04/2009 10:05 AM CDT Pre-Transplant Evaluation for End Stage Renal Disease ANTI HCV Timed 03/04/2009 10:05 AM CDT Pre-Transplant Evaluation for End Stage Renal Disease from Last 3 Months or Most Recently Relevant to Health Maintenance Results * (ABNORMAL) LIPID PANEL W REFLEX MEASURED LDL (11/08/2023 3:05 PM THEATRE PROGRAM DIRECTOR) CHOLESTEROL,TOTAL 90(L) 100 - 199 mg/dL 11/09/2023 10:41 AM THEATRE PROGRAM DIRECTOR [facility] [employer] [facility] Comment: Cholesterol, Total Reference Ranges Desirable <200 mg/dL Borderline 200-239 mg/dL High >=240 mg/dL TRIGLYCERIDES 104 <150 mg/dL 11/09/2023 10:41 AM THEATRE PROGRAM DIRECTOR [facility] HDL CHOLESTEROL 30(L) >40 mg/dL 10:41 AM THEATRE PROGRAM DIRECTOR [facility] NON-HDL CHOLESTEROL 60 <145 mg/dl 11/09/2023 10:41 AM THEATRE PROGRAM DIRECTOR [facility] CHOL/HDL RATIO 3.00 <4.50 11/09/2023 10:41 AM THEATRE PROGRAM DIRECTOR [facility] LDL CHOLESTEROL 39 <=130 mg/dL 11/09/2023 10:41 AM THEATRE PROGRAM DIRECTOR [facility] VLDL CHOLESTEROL 21 <=30 mg/dL 11/09/2023 10:41 AM THEATRE PROGRAM DIRECTOR [facility] PROVIDER ORDERED STATUS RANDOM 11/09/2023 10:41 AM [facility] Blood BLOOD SPECIMEN / Unknown Butterfly / Unknown 11/08/2023 3:05 PM THEATRE PROGRAM DIRECTOR 11/08/2023 3:08 PM THEATRE PROGRAM DIRECTOR Preet Huff MD CHEMISTRY [facility] [address] [place] [id number], [place] * COLONOSCOPY SCREENING (09/24/2013 12:00 AM THEATRE PROGRAM DIRECTOR) Narrative 09/24/2013 12:00 AM THEATRE PROGRAM DIRECTOR Procedure Note Scanner - 09/24/2013 12:00 AM CST Preet Huff MD GI PROCEDURE O RD * ANTI HCV (03/04/2009 10:05 AM CDT) ANTI HCV Non-reacti ve [facility] Blood specimen (specimen) BLOOD SPECIMEN / Unknown 03/04/2009 10:05 AM CDT 03/04/2009 9:57 AM CDT Alfredo Juarez MD SEND OUTS [facility] INTERNAL ZIP [address] [place] [id number] * ANTI HIV 1/2 (03/04/2009 10:05 AM CDT) ANTI HIV 1/2 Non-reacti ve [facility] Blood specimen (specimen) BLOOD SPECIMEN / Unknown 03/04/2009 10:05 AM CDT 03/04/2009 9:57 AM CDT Alfredo Juarez MD SEND OUTS [facility] INTERNAL ZIP [address] [place] [id number] from Last 3 Months or Most Recently Relevant to Health Maintenance Advance Directives Documents on File Type Date Recorded Patient Stope [employer]er Expl anation Power of [employer] 09/04/2014 12:00 AM 07/2009 * Full Code [...] 5:57 PM 03/16/2009 5:32 PM Care Teams Tire Room Supervisor Relationship Specialty Start Date End Date Preet Huff MD [address] [place] [address] PCP - General 12/02/06
--- OUTSIDE RECORDS SUMMARY | 2024-07-05 09:49 | XMS_ITS | Referral Summary ---
Author Organization [facility] Address [address] [place] [address] Care Team Providers Care Chaser Helper Name Role Phone Preet Huff Hans Primary Care Provider [phone] Encounters Date Type Department Care Team Description 05/23/2024 1:14 PM CDT - 05/30/2024 5:21 PM CDT Hospital Encounter [place] [address] Medical Surgical [address] [place] [address] Vi Hernandez DO Cabrera, Jesus F, MD Supratherapeutic INR; Mita's gangrene of scrotum (H28) Discharge Disposition: Home or Self Care 05/23/2024 6:02 PM CDT Anesthesia Event [facility]iOp [facility] [address] [place] [address] Tom Castro MD Larson, Matthew Ray, MD 05/23/2024 6:00 PM CDT - 05/23/2024 7:00 PM CDT Surgery [facility] [address] [place] [address] Lizandro Barron MD Incision and drainage, debridement of scrotal skin and subcutaneous tissues for necrotizing soft tissue infection of the scrotum 05/23/2024 Travel from Last 3 Months Allergies Active Allergy [...] mg by mouth every evening Active B Lgwvjyg-O-Qxncy Acid (WESCAPS PO) Take 1 capsule by [...] no dose on Sat and Sun 05/30/2024 Active ciprofloxacin (CIPRO) 500 MG tabletIndications:Fou rnier's gangrene of scrotum (H28) Take 1 tablet (500 mg) by mouth daily for 7 days. 7 tablet 05/30/2024 06/06/2024 amoxicillin-clavulana te (AUGMENTIN) 500-125 MG tabletIndications:Fou rnier's gangrene of scrotum (H28) Take 1 tablet by mouth daily for 7 days. 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 Sexual Orientation Not on file Last Filed [...] on file Medical Devices Implanted Type Area Director Operations Broadcast Device Identifier Shelf Expiration Date Model / Serial / Lot Graft Patch Vasc Xenosure Biologic 0.8x08cm 0.8p8 Implanted:Qty: 1 on 12/16/2017 by Jaxon Saravia MD at [facility] Bone/Tis rocco/Biol ogic Left: Iliac/Fem orals L[employer] VASC[employer] IN 06/06/2023 0.8P8 / / [id number] Graft Pericardium 8x0.8cm Vascu-Guard Implanted:Qty: 1 on 10/20/2011 at [facility] Right: Arm [employer] 01/16/2016 [id number] / / [id number] Femoral Popliteal Artery Implanted:Qty: 1 on 05/03/2012 by Jaxon Saravia MD at [facility] Right: Groin 12/07/2021 [id number] / [id number] / Description:CADAVER FEMORAL ARTERY RINSED IN A AND B SOLUTION: A SOLUTION LOT #[id number] EXPIRATION DATE 01/09/2014 B SOLUTION LOT #[id number] EXPIRATION DATE 11/15/2013 Graft Propaten Taper 4-6tve90es [id number] Implanted:Qty: 1 on 08/09/2012 by Jaxon Saravia MD at [facility] Right: Leg 10/24/2015 [id number] / / [id number] Graft Propaten Taper 4-8wuq21lw [id number] Implanted:Qty: 1 on 06/20/2013 by Jaxon Saravia MD at [facility] Left: Groin [employer] 02/07/2017 [id number] / / [id number] Graft Pericardium 8x0.8cm Vascu-Guard Implanted:Qty: 1 on 05/08/2014 by Jaxon Saravia MD at [facility] Left: Leg [employer] 11/26/2018 [id number] / PN# [id number] / [id number] Procol Vascular Bioprosthesis Implanted:Qty: 1 on 07/02/2015 by Jaxon Saravia MD at [facility] Left: Groin 12/16/2018 [id number] -[id number] / [id number] / Procol Vascular Bioprosthesis Implanted:Qty: 1 on 08/13/2015 by Jaxon Saravia MD at [facility] Left: Groin 12/16/2018 [id number] -[id number] / [id number] -[id number] / Graft Vasc Bioprosthesis Procol 1cmg12ue [id number] Implanted:Qty: 1 on 03/05/2016 by Jaxon Saravia MD at [facility] Left: Leg [employer]ASC[employer] IN 02/03/2019 [id number] -[id number] / [id number] / Procedures Procedure [...] TYPE AND SCREEN STAT 2:07 PM CDT TYPE AND SCREEN, ADULT STAT 2:07 PM CDT CBC WITH PLATELETS & DIFFERENTIAL STAT 05/23/2024 1:50 PM CDT BLOOD CULTURE STAT 05/23/2024 1:50 PM CDT CBC WITH PLATELETS AND DIFFERENTIAL STAT 05/23/2024 1:50 PM CDT LACTIC ACID WHOLE BLOOD STAT 05/23/2024 1:50 PM CDT COMPREHENSIVE METABOLIC PANEL STAT 05/23/2024 1:50 PM CDT INR STAT 05/23/2024 1:50 PM CDT RENAL PANEL Routine 03/12/2024 6:06 AM CDT COLONOSCOPY Routine 03/08/2024 1:04 PM CDT OCCULT BLOOD STOOL STAT 02/24/2024 11 :31 AM CDT HEPATITIS C (HIM EXTERNAL RESULT) Routine 01/04/2022 12:00 PM CDT LIPID PROFILE STAT 12/07/2017 12:34 PM OUTDOOR STUDIES PROFESSOR 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 [facility] GLUCOSE BY METER POCT 84 70 - 99 mg/dL 05/30/2024 1:46 PM CDT LABORATORY POC Blood, Capillary BLOOD SPECIMEN / Unknown 05/30/2024 1:40 PM CDT 05/30/2024 1:46 PM CDT Antonino Cheek MD LAB - BEAKER POCT Performing Organization Address City/[facility]/ZIP Co de Phone Number LABORATORY [facility] Lab [address] Lab (1st floor, no room number) [address] * (ABNORMAL) INR (05/30/2024 6:54 AM CDT) Only the most recent of10 resultswithin the time period is included. [facility] INR 2.26(H) 0.85 - 1.15 05/30/2024 7:20 AM CDT LABORATORY Blood STRUCTURE OF RIGHT HAND / Unknown Venipuncture / Unknown 05/30/2024 6:54 AM CDT 05/30/2024 7:06 AM CDT Antonino Cheek MD LAB - BLOOD ORDERABL ES [facility] Lab [address] Lab (1st floor, no room number) [address] * (ABNORMAL) Basic metabolic panel (05/30/2024 6:54 AM CDT) Only the most recent of4 resultswithin the time period is included. [facility] Sodium 133(L) 135 - 145 mmol/L 05/30/2024 [...] MD LAB - BLOOD ORDERABL ES LABORATORY [facility] Lab [address] [facility] Lab (1st floor, no room number) [place] [address], [facility] * (ABNORMAL) CBC with platelets (05/30/2024 6:54 AM CDT) Only the most recent of2 [...] MD LAB - BLOOD ORDERABL ES LABORATORY [facility] Lab [address] [facility] Lab (1st floor, no room number) [place] [address], [facility] * Extra Green Top Tube (LAB [...] ORDERABL ES Performing Organization Address [facility]/ZIP Co de Phone Number [facility] Lab [address] Lab (1st floor, no room number) [address] * Extra Purple Top EDTA (LAB USE ONLY) (05/28/2024 6:07 AM CDT) Only the most recent of2 resultswithin the time period is included. Hold Specimen JIC 05/28/2024 7:32 AM CDT LABORATORY Blood STRUCTURE OF LEFT HAND / Unknown Venipuncture / Unknown 05/28/2024 6:07 AM CDT 05/28/2024 6:17 AM CDT Antonino Cheek MD LAB - BLOOD ORDERABL ES Performing Organization Address [facility] Co de Phone Number [facility] Lab [address] Lab (1st floor, no room number) [place] [phone] [place] [address] * (ABNORMAL) Hemoglobin (05/28/2024 6:07 AM CDT) Pathologist [facility] Hemoglobin 7.7(L) 13.3 - 17.7 g/dL 05/28/2024 9:02 AM CDT LABORATORY Blood STRUCTURE OF LEFT HAND / Unknown Venipuncture / Unknown 05/28/2024 6:07 AM CDT 05/28/2024 6:17 AM CDT Dileep Anders MD LAB - BLOOD ORD ERABLES Performing Organization Address City/[facility]/ZIP Co de Phone Number [facility] Lab [address] Lab (1st floor, no room number) [address] * (ABNORMAL) CBC with platelets and differential (05/26/2024 5:47 AM CDT) Only the most recent of3 resultswithin the time period is included. WBC [...] - BLOOD ORDERABL ES Performing Organization Address City/[facility]/ZIP Co de Phone Number [facility] Lab [address] Lab (1st floor, no room number) [place] [address] * Vancomycin level (05/25/2024 2:04 PM CDT) Vancomycin 11.9 ug/mL 05/25/2024 3:28 PM CDT [facility] LABORATORY Comment: Traditional Dosing Therapeutic Range: Trough 10-15 ug/mL Peak 20-40 ug/mL Critical: Greater than 25.0 ug/mL Blood STRUCTURE OF RIGHT UPPER LIMB / Unknown Venipuncture / Unknown 05/25/2024 2:04 PM CDT 05/25/2024 2:07 PM CDT Antonino Cheek MD LAB - BLOOD ORDERABL ES [facility] Lab [address] Lab (1st floor, no room number) [place] [address] * Hepatitis B Surface Antibody [...] - BLOOD ORDERABL ES Performing Organization Address City/[facility]/ZIP Co de Phone Number U LABORATORY [facility] [place] [facility] Lab [address] [facility], [address] * Hepatitis B surface antigen (05/25/2024 9:25 AM CDT) Hepatitis B Surface Antigen Nonreactive Nonreactive 05/25/2024 2:23 PM CDT [facility] LABORATORY Blood BLOOD SPECIMEN / Unknown Venipuncture / Unknown 05/25/2024 9:25 AM CDT 05/25/2024 10:13 AM CDT Jose Enrique Naylor MD LAB - BLOOD ORDERABL ES Performing Organization Address City/[facility] de Phone Number LABORATORY [facility] [place] [facility] Lab [address] [facility], [address] * (ABNORMAL) Comprehensive metabolic panel (05/24/2024 6:09 AM CDT) Only the most recent of2 resultswithin the time period is included. Sodium [...] MD LAB - BLOOD ORDERABL ES LABORATORY [facility] Lab [address] Lab (1st floor, no room number) [place] [address], [facility] * (ABNORMAL) Tissue Aerobic Bacterial Culture [...] - MICRO GENERAL ORDERABLES [facility] LABORATORY [facility] Inf. Diseases Diag. Lab [address] [facility], Room [address] * (ABNORMAL) Gram Stain (05/23/2024 6:42 [...] - MICRO GENERAL ORDERABLES [facility] LABORATORY [facility] Inf. Diseases Diag. Lab [address] [facility], Room [place] [phone] * Anaerobic Bacterial Culture Routine (05/23/2024 6:42 PM CDT) Culture 4+ Mixed Aerobic and Anaerobic dev JOJO 05/25/2024 2:01 PM CDT [facility] LABORATORY Comment:No predominant organ ism Tissue SCROTAL STRUCTURE / Unknown Non-blood Collection / Unknown 05/23/2024 6:42 PM CDT 05/23/2024 6:46 PM CDT Lizandro Barron MD LAB - MICRO GENERAL ORDERABLES [facility] LABORATORY [facility] Inf. Diseases Diag. Lab [address] [facility], [address] [place] [address] * ANE AIRWAY ETT PERFORMABLE (05/23/2024 6:21 PM CDT) Narrative Donnell Ramos APRN RESEARCH LAB ASSISTANT - 05/23/2024 6:21 PM CDT Donnell Ramos APRN RESEARCH LAB ASSISTANT ? 05/23/2024 ??6:33 PM Airway ? Patient location during procedure: OR ? Procedure Start/Stop Times: 05/23/2024 6:21 PM Staff - ? RESEARCH LAB ASSISTANT: Yasemin Almaguer APRN CRNA ? Performed By: [...] Time: 05/23/2024 6:21 PM Tom Castro MD [place] AN[facility]HESIA * EKG 12-lead, tracing only (05/23/2024 5:08 PM CDT) Systolic Blood Pressure mmHg RADIOLOGY RESULTS Diastolic Blood Pressure mmHg RADIOLOGY RESULTS Ventricular Rate 63 BPM RAD IOLOGY RESULTS Atrial Rate 63 BPM RADIOLOG Y RESULTS GA Interval 222 ms RADIOLOG Y RESULTS QRS Duration 102 ms RADIOLO GY RESULTS QT 448 ms RADIOLOGY RESULTS QTc 458 ms RADIOLOGY RESULTS P Gould 54 degrees RADIOLOGY RESULTS R AXIS -5 degrees RADIOLOGY RESULTS T Gould 24 degrees RADIOLOGY RESULTS Interpretation ECG Sinus rhythm with 1st degree A-V block Septal infarct , age undetermined Abnormal ECG When compared with ECG of 02-Mar-2024 14:00, Septal infarct is now Present No significant change was found Confirmed by - EMERGENCY ROOM, PHYSICIAN ([id number]), scientific publications editor LIZANDRO ZABALA ([id number]) on 05/24/2024 6:44:53 AM RADIOLOGY RESULTS 05/23/2024 [...] 2:35 PM. MIKE SANTANA MD SYSTEM ID: ??[id number] Narrative 05/23/2024 2:[address] ABDOMEN [...] veins which are not included in the pevuw-kh-narq. MUSCULOSKELETAL: Stable degenerative changes at L4-L5 with [...] veins which are not included in the dhbqd-ol-cupk. 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 No destructive lesions in the bones. IMPRESSION: 1. 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 2. Other chronic findings as discussed above. Findings were discussed with Dr. Kenna Coe at 2:35 PM. MIKE SANTANA MD SYSTEM ID: [id number] Vi Coe DO IMG CT ORDERABLE S * Adult Type and Screen (05/23/2024 2:07 PM CDT) ABO/RH(D) O POS 05/23/2024 1:37 PM CDT RH BLOOD BANK Antibody Screen Negative Negative 05/23/2024 1:37 PM CDT RH BLOOD BANK SPECIMEN EXPIRATION DATE [id number] 05/23/2024 1:37 PM CDT RH BLOOD BANK Blood BLOOD SPECIMEN / Unknown Venipuncture / Unknown 05/23/2024 2:07 PM CDT 05/23/2024 2:10 PM CDT Vi Coe DO LAB - BLOOD BANK TEST ORDER Performing Organization Address City/[facility]/ZIP Co de Phone Number BLOOD BANK [address] [place] [address] * Lactic acid whole blood (05/23/2024 1:50 PM CDT) Lactic Acid 0.9 0.7 - 2.0 mmol/L 05/23/2024 1:57 PM CDT [facility] LABORATORY Blood BLOOD SPECIMEN / Unknown Venipuncture / Unknown 05/23/2024 1:50 PM CDT 05/23/2024 1:54 PM CDT Vi Coe DO LAB - BLOOD ORDE MYRANDA LABORATORY [facility] Lab [address] Lab (1st floor, no room number) [place] [address], [facility] * Blood Culture Peripheral Blood (05/23/2024 1:50 PM CDT) Pathologist [facility] Culture No Growth 05/28/2024 4:06 PM CDT [facility] LABORATORY Blood BLOOD SPECIMEN / Unknown Venipuncture / Unknown 05/23/2024 1:50 PM CDT 05/23/2024 1:53 PM CDT Vi Coe DO LAB - MICRO GENE RAL ORDERABLES [facility] LABORATORY [facility] Inf. Diseases Diag. Lab [address] [facility], [address] [place] [address], [facility] * (ABNORMAL) Renal panel (03/12/2024 6:06 AM CDT) Pathologist [facility] Sodium 123(L) 135 - 145 mmol/L 03/12/2024 [...] MD LAB - BLOOD ORDERA BLES LABORATORY [facility] Lab [address] [facility] Lab (1st floor, no room number) [place] [address] * COLONOSCOPY (03/08/2024 1:04 PM CDT) COLONOSCOPY [facility] Patient Name: Herminio Victor ? [...] continuously. The ?Olympus Adult Colonoscope, Model # [id number], ?Censitrac # [id number] was introduced through the ?anus and advanced [...] Note Initiated On: 03/08/2024 1:04 PM MRN: ?[id number] Procedure Date: ? 03/08/2024 1:04:50 PM Scope Withdrawal Time: 0 hours 11 minutes 55 seconds Total Procedure Duration: 0 hours 17 minutes 23 seconds Estimated Blood Loss: ? Scope In: 1:12:27 PM Scope Out: 1:29:50 PM RADIOLOGY RESULTS 03/08/2024 1:04 PM CDT Eileen Earl MD PROCEDURES Performing Organization Address City/[facility] Co de Phone Number RADIOLOGY RESULTS * (ABNORMAL) Occult blood stool (02/24/2024 11:31 AM CDT) Pathologist [facility] Occult Blood Positive(A ) Negative JOJO 02/24/2024 11:40 AM CDT LABORATORY Stool RECTAL CONTENTS / Unknown Non-blood Collection / Unknown 02/24/2024 11:31 AM CDT 02/24/2024 11:38 AM CDT Jae Noel MD LAB - STOOLS ORDERAB LES Performing Organization Address [facility] Co de Phone Number LABORATORY [facility] Lab [address] Lab (1st floor, no room number) [place] [address] * Hepatitis C (HIM External Result) (01/04/2022 12:00 PM CDT) Hep C HIM See Scanned Document EXTERNAL LAB Comment:Nonreactive 01/04/2022 12:0 0 PM CDT Narrative EXTERNAL LAB - 01/04/2022 12:00 PM CDT LAB RESULT [facility] [address] [place] [address] Provider Outside LAB - HIM EXTERNAL R ESULT Performing Organization Address City/[facility] Co de Phone Number EXTERNAL LAB External Lab * (ABNORMAL) Lipid panel (12/07/2017 12:34 PM OUTDOOR STUDIES PROFESSOR) Pathologist [facility] Cholesterol 115 <200 mg/dL 12/07/2017 1:27 PM OUTDOOR STUDIES PROFESSOR [facility] Triglycerides 84 <150 mg/dL 12/07/2017 1:27 PM OUTDOOR STUDIES PROFESSOR [facility] HDL Cholesterol 37(L) >39 mg/dL 8 1:27 PM OUTDOOR STUDIES PROFESSOR [facility] LDL Cholesterol Calculated 61 <100 mg/dL 12/07/2017 1:27 PM OUTDOOR STUDIES PROFESSOR [facility] Comment:Desirable: <100 mg/d l Non HDL Cholesterol 78 <130 mg/dL 12/07/2017 1:27 PM [facility] Blood specimen (specimen) 12/07/2017 12:34 PM OUTDOOR STUDIES PROFESSOR 12/07/2017 12:58 PM OUTDOOR STUDIES PROFESSOR Michele Fuentes MD LAB - BLOOD ORD ERABLES [facility] [address] [place] [address], [facility] [phone] from Last 3 Months or Most Recently Relevant to Health Maintenance Advance Directives For more information, please contact: [phone] * Full Code (Latest Code Status on [...] Comments Code status determined by: Discussion with ricardoe nt/ legal decision maker * Full Code Date Activated Date Inactivated Comments 01/26/2018 12:25 PM 01/25/2019 11:45 AM Care Teams Chaser Helper Relationship Specialty Start Date End Date Preet Huff PCP - General 06/24/11
--- OUTSIDE RECORDS SUMMARY | 2024-07-05 09:49 | XMS_ITS | Clinical Summary ---
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 Carton Waxing Machine Operator Name Role Phone Preet Huff Primary Care Provider [phone] Allergies Active Allergy Reactions Criticality Noted Date [...] mg by mouth every evening Active B Ftzfzoy-S-Zfoic Acid (WESCAPS PO) Take 1 capsule by [...] 05/30/2024 06/06/2024 amoxicillin-clavulana te (AUGMENTIN) 500-125 MG tabletIndications:Alex rnier's gangrene of scrotum (H28) Take 1 [...] Description 05/23/2024 6:02 PM CDT Anesthesia Event [facility] [address] [phone] Tom Castro MD Larson, Matthew Ray, MD 05/23/2024 6:00 PM CDT - 05/23/2024 7:00 PM CDT Surgery [facility] [address] [phone] Lizandro Barron MD Incision and drainage, debridement of scrotal skin and subcutaneous tissues for necrotizing soft tissue infection of the scrotum 05/23/2024 1:14 PM CDT - 05/30/2024 5:21 PM CDT Hospital Encounter [place] [address] [facility] [address] [place] [address] Vi Hernandez DO Cabrera, Jesus F, MD Supratherapeutic INR; Mita's gangrene of scrotum (H28) Discharge Disposition: Home or Self Care 05/23/2024 Travel from Last 3 Months Immunizations Name [...] in an abandoned building, in an overnight nursing home, or couch-surfing.) Patient unable to answer 05/30/2024 [...] file Gender Identity Male 12/05/2017 10:39 AM DATA SME Sexual Orientation Not on file Last Filed [...] or Tdap) 10/21/2019 10/21/2009, 10/21/2009 RSV VACCINE (1 - Risk 60-74 years 1-dose series) 2023 HEPATITIS B IMMUNIZATION (10 of 10 - Risk Dialysis 4-dose series) 09/06/2023 09/06/2022, 11/07/2013, 09/25/2013, Additional history exists PHQ-2 (once per calendar year) 2023 01/15/2016 COVID-19 Vaccine ( season) 2024 06/23/2022, 01/13/2022, 08/17/2021, Additional history exists INFLUENZA VACCINE (#1) 2024 , 08/05/2021, 07/11/2020, Additional history exists BMP 08/30/2024 05/30/2024, 05/11, 05/28/2024, Additional history exists HEMOGLOBIN 11/30/2024 05/30/2024, 05/11, 05/28/2024, Additional history exists FIT 02/23/2025 02/24/2024, 06/14/2014 GLUCOSE 05/30/2027 05/30/2024, 05/11, 05/30/2024, Additional history exists COLONOSCOPY 03/08/2034 03/08/2024, 02/09, 09/24/2013, Additional history exists COLORECTAL CANCER SCREENING 03/08/2034 HEPATITIS C SCREENING Completed 01/04/2022 PHOSPHORUS Completed 03/12/2024, 06/0 11/2023, 03/10/2024, Additional history exists ALK PHOS [...] this topic Medical Devices Implanted Type Area Laundry Assistant Device Identifier Shelf Expiration Date Model / Serial / Lot Graft Patch Vasc Xenosure Biologic 0.8x08cm 0.8p8 Implanted:Qty: 1 on 12/16/2017 by Jaxon Saravia MD at [facility] Bone/Tis rocco/Biol ogic Left: Iliac/Fem orals L[employer] VASC[employer] IN 06/06/2023 0.8P8 / / [id number] Graft Pericardium 8x0.8cm Vascu-Guard Implanted:Qty: 1 on 10/20/2011 at [facility] Right: Arm [employer] 01/16/2016 [id number] / / [id number] Femoral Popliteal Artery Implanted:Qty: 1 on 05/03/2012 by Jaxon Saravia MD at [facility] Right: Groin 12/07/2021 [id number] / [id number] / Description:CADAVER FEMORAL ARTERY RINSED IN A AND B SOLUTION: A SOLUTION LOT #[id number] EXPIRATION DATE 01/09/2014 B SOLUTION LOT #[id number] EXPIRATION DATE 11/15/2013 Graft Propaten Taper 4-0pfo43di [id number] Implanted:Qty: 1 on 08/09/2012 by Jaxon Saravia MD at [facility] Right: Leg 10/24/2015 [id number] / / [id number] Graft Propaten Taper 4-3stz20kk [id number] Implanted:Qty: 1 on 06/20/2013 by Jaxon Saravia MD at [facility] Left: Groin [employer] 02/07/2017 [id number] / / [id number] Graft Pericardium 8x0.8cm Vascu-Guard Implanted:Qty: 1 on 05/08/2014 by Jaxon Saravia MD at [facility] Left: Leg [employer] 11/26/2018 [id number] / PN# [id number] / [id number] Procol Vascular Bioprosthesis Implanted:Qty: 1 on 07/02/2015 by Jaxon Saravia MD at [facility] Left: Groin 12/16/2018 [id number] -[id number] / [id number] / Procol Vascular Bioprosthesis Implanted:Qty: 1 on 08/13/2015 by Jaxon Saravia MD at [facility] Left: Groin 12/16/2018 [id number] -[id number] / [id number] -[id number] / Graft Vasc Bioprosthesis Procol [id number] Implanted:Qty: 1 on 03/05/2016 by Jaxon Saravia MD at [facility] Left: Leg [employer] VASC[employer] IN 02/03/2019 [id number] -[id number] / [id number] / Procedures Procedure [...] CDT LIPID PROFILE STAT 12/07/2017 12:34 PM DATA SME 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 GLUCOSE BY METER POCT 84 70 - 99 mg/dL 05/30/2024 1:46 PM CDT [facility] LABORATORY POC Blood, Capillary BLOOD SPECIMEN / Unknown 05/30/2024 1:40 PM CDT 05/30/2024 1:46 PM CDT Antonino DEAN - [facility] POCT LABORATORY [facility] Acute Care Lab [address] [facility] Lab (1st floor, no room number) [place] [address], [facility] * (ABNORMAL) INR (05/30/2024 6:54 AM CDT) Only the most recent of10 resultswithin the time period is included. INR 2.26(H) 0.85 - 1.15 05/30/2024 7:20 AM CDT LABORATORY Blood STRUCTURE OF RIGHT HAND / Unknown Venipuncture / Unknown 05/30/2024 6:54 AM CDT 05/30/2024 7:06 AM CDT Antonino Cheek MD LAB - BLOOD ORDERABL ES LABORATORY [facility] Acute Care Lab [address] [facility] Lab (1st floor, no room number) [place] [address], [facility] * (ABNORMAL) Basic metabolic panel (05/30/2024 6:54 [...] MD LAB - BLOOD ORDERABL ES LABORATORY [facility] Acute Care Lab [address] Lab (1st floor, no room number) [place] [address], [facility] * (ABNORMAL) CBC with platelets (05/30/2024 6:54 [...] MD LAB - BLOOD ORDERABL ES LABORATORY [facility] Acute Care Lab [address] Lab (1st floor, no room number) [place] [address] * Extra Green Top Tube (LAB USE ONLY) (05/28/2024 6:07 AM CDT) Only the most recent of2 resultswithin the time period is included. Hold Specimen JI 05/28/2024 7:32 AM CDT RH LABORATORY Blood STRUCTURE OF LEFT HAND / Unknown Venipuncture / Unknown 05/28/2024 6:07 AM CDT 05/28/2024 6:17 AM CDT Antonino Cheek MD LAB - BLOOD ORDERABL ES Performing Organization Address City/[facility]/ZIP Co de Phone Number [facility] Lab [address] Lab (1st floor, no room number) [place] [address] * Extra Purple Top EDTA (LAB USE ONLY) (05/28/2024 6:07 AM CDT) Only the most recent of2 resultswithin the time period is included. Hold Specimen [facility] 05/28/2024 7:32 AM CDT [facility] LABORATORY Blood STRUCTURE OF LEFT HAND / Unknown Venipuncture / Unknown 05/28/2024 6:07 AM CDT 05/28/2024 6:17 AM CDT Antonino Cheek MD LAB - BLOOD ORDERABL ES [facility] Lab [address] Lab (1st floor, no room number) [place] [address] * (ABNORMAL) Hemoglobin (05/28/2024 6:07 AM CDT) Hemoglobin 7.7(L) 13.3 - 17.7 g/dL 05/28/2024 9:02 AM CDT [facility] LABORATORY Blood STRUCTURE OF LEFT HAND / Unknown Venipuncture / Unknown 05/28/2024 6:07 AM CDT 05/28/2024 6:17 AM CDT Dileep Anders MD LAB - BLOOD ORD ERABLES [facility] LABORATORY [facility] Acute Care Lab [address] Lab (1st floor, no room number) [place] [address], [facility] * (ABNORMAL) CBC [...] MD LAB - BLOOD ORDERABL ES LABORATORY [facility] Acute Care Lab [address] Lab (1st floor, no room number) [place] [address], [facility] * Vancomycin level (05/25/2024 2:04 PM CDT) Vancomycin 11.9 ug/mL 05/25/2024 3:28 PM CDT RH LABORATORY Comment: Traditional Dosing Therapeutic Range: Trough 10-15 ug/mL Peak 20-40 ug/mL Critical: Greater than 25.0 ug/mL Blood STRUCTURE OF RIGHT UPPER LIMB / Unknown Venipuncture / Unknown 05/25/2024 2:04 PM CDT 05/25/2024 2:07 PM CDT Antonino Cheek MD LAB - BLOOD ORDERABL ES [facility] Acute Care Lab [address] [facility] Lab (1st floor, no room number) [place] [address] [...] - BLOOD ORDERABL ES Performing Organization Address City/[facility]/ZIP Co de Phone Number LABORATORY [facility] [place] Core Lab [address] [facility], [address] [address] * Hepatitis B surface antigen (05/25/2024 9:25 AM CDT) Hepatitis B Surface Antigen Nonreactive Nonreactive 05/25/2024 2:23 PM CDT [facility] LABORATORY Blood BLOOD SPECIMEN / Unknown Venipuncture / Unknown 05/25/2024 9:25 AM CDT 05/25/2024 10:13 AM CDT Jose Enrique Naylor MD LAB - BLOOD ORDERABL ES U LABORATORY [facility] [place] Core Lab [address] [facility], [address] [address] * (ABNORMAL) Comprehensive metabolic panel (05/24/2024 6:09 [...] MD LAB - BLOOD ORDERABL ES LABORATORY [facility] Acute Care Lab [address] Lab (1st floor, no room number) [place] [address], [facility] * (ABNORMAL) Tissue Aerobic Bacterial Culture Routine [...] MICRO GENERAL ORDERABLES [facility] IDD LABORATORY [facility] Inf. Diseases Diag. Lab [address] [facility], [address] [place], [place] [phone] * (ABNORMAL) Gram Stain (05/23/2024 6:42 PM CDT) [facility] GS Culture See corresponding culture for results [...] - MICRO GENERAL ORDERABLES Performing Organization Address City/[facility]/ZIP Co de Phone Number [facility] IDD LABORATORY [facility] Inf. Diseases Diag. Lab [address] [facility], Room [place] [phone] * Anaerobic Bacterial Culture Routine (05/23/2024 6:42 PM CDT) Culture 4+ Mixed Aerobic and Anaerobic dev JOJO 05/25/2024 2:01 PM CDT [facility] IDD LABORATORY Comment:No predominant organ ism Tissue SCROTAL STRUCTURE / Unknown Non-blood Collection / Unknown 05/23/2024 6:42 PM CDT 05/23/2024 6:46 PM CDT Lizandro Barron MD LAB - MICRO GENERAL ORDERABLES Performing Organization Address City/[facility] Co de Phone Number [facility] IDD LABORATORY [facility] Inf. Diseases Diag. Lab [address] [facility], Room [place] [phone] * ANE AIRWAY ETT PERFORMABLE (05/23/2024 6:21 PM CDT) Narrative Donnell Ramos APRN WOUND SPECIALIST - 05/23/2024 6:21 PM CDT Donnell Ramos APRN WOUND SPECIALIST ? 05/23/2024 ??6:33 PM Airway ? Patient location during procedure: OR ? Procedure Start/Stop Times: 05/23/2024 6:21 PM Staff - ? WOUND SPECIALIST: Yasemin Almaguer APRN CRNA ? Performed [...] Time: 05/23/2024 6:21 PM Tom Castro MD [place] ANESTHESIA * EKG 12-lead, tracing only (05/23/2024 5:08 PM CDT) Systolic Blood Pressure mmHg RADIOLOGY RESULTS Diastolic Blood Pressure mmHg RADIOLOGY RESULTS Ventricular Rate 63 BPM RAD IOLOGY RESULTS Atrial Rate 63 BPM RADIOLOG Y RESULTS VT Interval 222 ms RADIOLOG Y RESULTS QRS Duration 102 ms RADIOLO GY RESULTS QT 448 ms RADIOLOGY RESULTS QTc 458 ms RADIOLOGY RESULTS P [place] 54 degrees RADIOLOGY RESULTS R AXIS -5 degrees RADIOLOGY RESULTS T [place] 24 degrees RADIOLOGY RESULTS Interpretation ECG Sinus rhythm with 1st degree A-V block Septal infarct , age undetermined Abnormal ECG When compared with ECG of 02-Mar-2024 14:00, Septal infarct is now Present No significant change was found Confirmed by - EMERGENCY ROOM, PHYSICIAN ([id number]), news video editor LIZANDRO ZABALA ([id number]) on 05/24/2024 6:44:53 AM RADIOLOGY RESULTS 05/23/2024 [...] 2:35 PM. MIKE SANTANA MD SYSTEM ID: ??[id number] Narrative 05/23/2024 2:[address] ABDOMEN [...] veins which are not included in the dqusd-qt-zrbv. MUSCULOSKELETAL: Stable degenerative changes at L4-L5 with [...] veins which are not included in the gmflf-dq-xrrx. 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 No destructive lesions in the bones. IMPRESSION: 1. 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 2. Other chronic findings as discussed above. Findings were discussed with Dr. Kenna Coe at 2:35 PM. MIKE SANTANA MD SYSTEM ID: [id number] Vi Coe DO IMG CT ORDERABLE S * Adult Type and Screen (05/23/2024 2:07 PM CDT) ABO/RH(D) O POS 05/23/2024 1:37 PM CDT RH BLOOD BANK Antibody Screen Negative Negative 05/23/2024 1:37 PM CDT RH BLOOD BANK SPECIMEN EXPIRATION DATE [id number] 05/23/2024 1:37 PM CDT RH BLOOD BANK Blood BLOOD SPECIMEN / Unknown Venipuncture / Unknown 05/23/2024 2:07 PM CDT 05/23/2024 2:10 PM CDT Vi Coe DO LAB - BLOOD BANK TEST ORDER BLOOD BANK [address] [place] [address], [facility] * Lactic acid whole blood (05/23/2024 1:50 PM CDT) Pathologist [facility] Lactic Acid 0.9 0.7 - 2.0 mmol/L 05/23/2024 1:57 PM CDT RH LABORATORY Blood BLOOD SPECIMEN / Unknown Venipuncture / Unknown 05/23/2024 1:50 PM CDT 05/23/2024 1:54 PM CDT Vi Coe DO LAB - BLOOD ORDE RABLES RH LABORATORY [facility] Acute Care Lab [address] Lab (1st floor, no room number) [place] [address] * Blood Culture Peripheral Blood (05/23/2024 1:50 PM CDT) [facility] Culture No Growth 05/28/2024 4:06 PM CDT [facility] IDD LABORATORY Blood BLOOD SPECIMEN / Unknown Venipuncture / Unknown 05/23/2024 1:50 PM CDT 05/23/2024 1:53 PM CDT Vi Coe DO LAB - MICRO GENE RAL ORDERABLES [facility] IDD LABORATORY [facility] Inf. Diseases Diag. Lab [address] [facility], [address] [place] [address] * (ABNORMAL) Renal panel (03/12/2024 6:06 AM CDT) Pathologist [facility] Sodium 123(L) 135 - 145 mmol/L 03/12/2024 [...] MD LAB - BLOOD ORDERA BLES LABORATORY [facility] Acute Care Lab [address] [facility] Lab (1st floor, no room number) [place] [address], [facility] * COLONOSCOPY (03/08/2024 1:04 PM CDT) COLONOSCOPY [facility] Patient Name: Herminio Ramon Kayleigh ? Procedure Date: 03/08/2024 1:04 PM ? [...] continuously. The ?Olympus Adult Colonoscope, Model # [id number], ?Censitrac # [id number] was introduced through the ?anus and advanced [...] Note Initiated On: 03/08/2024 1:04 PM MRN: ?[id number] Procedure Date: ? 03/08/2024 1:04:50 PM Scope Withdrawal Time: 0 hours 11 minutes 55 seconds Total Procedure Duration: 0 hours 17 minutes 23 seconds Estimated Blood Loss: ? Scope In: 1:12:27 PM Scope Out: 1:29:50 PM RADIOLOGY RESULTS 03/08/2024 1:04 PM CDT Eileen Earl MD PROCEDURES RADIOLOGY RESULTS * (ABNORMAL) Occult blood stool (02/24/2024 11:31 AM CDT) Occult Blood Positive(A ) Negative JOJO 02/24/2024 11:40 AM CDT LABORATORY Stool RECTAL CONTENTS / Unknown Non-blood Collection / Unknown 02/24/2024 11:31 AM CDT 02/24/2024 11:38 AM CDT Jae Noel MD LAB - STOOLS ORDERAB LES LABORATORY [facility] Acute Care Lab [address] Lab (1st floor, no room number) [place] [address], [facility] * Hepatitis C (HIM External Result) (01/04/2022 12:00 PM CDT) Hep C HIM See Scanned Document EXTERNAL LAB Comment:Nonreactive 01/04/2022 12:0 0 PM CDT Narrative EXTERNAL LAB - 01/04/2022 12:00 PM CDT LAB RESULT [facility] [address] [place] [id number] Provider Outside LAB - HIM EXTERNAL R ESULT EXTERNAL LAB External Lab * (ABNORMAL) Lipid panel (12/07/2017 12:34 PM DATA SME) Cholesterol 115 <200 mg/dL 12/07/2017 1:27 PM DATA SME [facility] Triglycerides 84 <150 mg/dL 12/07/2017 1:27 PM DATA SME [facility] HDL Cholesterol 37(L) >39 mg/dL 8 1:27 PM [facility] LDL Cholesterol Calculated 61 <100 mg/dL 12/07/2017 1:27 PM [facility] Comment:Desirable: <100 mg/d l Non HDL Cholesterol 78 <130 mg/dL 12/07/2017 1:27 PM [facility] Blood specimen (specimen) 12/07/2017 12:34 PM DATA SME 12/07/2017 12:58 PM DATA SME Michele Fuentes MD LAB - BLOOD ORD ERABLES [facility] [address] [place] [address], [facility] [phone] from Last 3 Months or Most Recently Relevant to Health Maintenance Advance Directives For more information, please contact: [phone] * Full Code (Latest Code Status on [...] 12:25 PM 01/25/2019 11:45 AM Care Teams Carton Waxing Machine Operator Relationship Specialty Start Date End Date Preet Huff PCP - General 06/24/11
--- OUTSIDE RECORDS SUMMARY | 2024-07-05 09:50 | XMS_ITS | Encounter Summary ---
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 [facility] ED Nurse Handoff Report ED [...] 2. Lift room needed: No. Bariatric: No Stair Builder Needed: No Isolation: No. Infection: Not Applicable. [...] POS Antibody Screen Negative SPECIMEN EXPIRATION DATE [id number] BLOOD CULTURE ABO/RH TYPE AND SCREEN CT Abdomen Pelvis w Contrast Final Result IMPRESSION: 1. 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 2. Other chronic findings as discussed above. Findings were discussed with Dr. Kenna Coe at 2:35 PM. MIKE LIPSCOMB MD SYSTEM ID: [id number] Treatments provided: See MAR Family Comments: family updated by OBS brochure/video discussed/provided to patient: Yes ED Medications: Medications sodium chloride 0.9 % bag [address] scan flush use (100 mLs As instructed $Given 05/23/24 1414) HOLD: warfarin (COUMADIN) therapy (has no administration [...] POS Antibody Screen Negative SPECIMEN EXPIRATION DATE [id number] BLOOD CULTURE ABO/RH TYPE AND SCREEN Imaging CT Abdomen Pelvis w Contrast Final Result IMPRESSION: 1. 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 2. Other chronic findings as discussed above. Findings were discussed with Dr. Kenna Coe at 2:35 PM. MIKE LIPSCOMB MD SYSTEM ID: [id number] Independent Interpretation None ED Course Medications Administered [...] intermittent infusion (10mg Intravenous $New Bag 05/23/24 1510) prothrombin 4 factor complex concentrate (KCENTRA) infusion 4,156 Units (4,156 Units Intravenous $Given 05/23/24 1454) Procedures Procedures Discussion of Management Urology, Poppy [...] care. [address] Cheek [facility] who accepts 1620 Arianna Goodman (Mother) [phone] (Home Phone) Updated mom Additional Documentation None Medical Decision Making / Diagnosis [facility] Diagnoses: None MIPS None MDM Herminio [...] Expected time: Means of arrival: Ambulance Comments: [place] 332 documented in this encounter Miscellaneous Notes * Plan of Care - Rand Ochoa OTR - 05/30/2024 5:21 PM CDT Occupational Therapy Discharge Summary Reason for therapy discharge: Discharged to home with home therapy. Progress towards therapy goal(s). See goals on Care Plan in [facility] electronic health record for goal details. Goals partially met. Barriers to achieving goals: discharge from facility. Therapy recommendation(s): Continued therapy is recommended. Rationale/Recommendations: Patient appears safe and able todischarge home with intermittent assist from family with higher level IADLS (just like baseline). Pt wouldbeenfit from OT to progress ADL tolerance. Pt not seen by news writer on this date, note written based on previous treating OT's note and recommendations. * Plan of Care - Joann Marinelli PT - 05/30/2024 5:21 PM CDT Physical Therapy Discharge Summary Reason for therapy discharge: Discharged to home with home therapy. Progress towards therapy goal(s). See goals on Care Plan in [facility] electronic health record for goal details. Goals not met. Barriers to achieving goals: discharge from facility. Therapy recommendation(s): Continued therapy is recommended. Rationale/Recommendations: Rec home with assist for safe mobilityand HHPT to progress strength and IND mobility. * Pharmacy-Anticoagulation Service - Joni Steel [facility] - 05/30/2024 3:00 PM CDT Images from the original note were not included. 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 Pertinent assessments: Assumed cares @ [phone].Disoriented to situation and time. VSS on RA. [...] Flowsheet Documentation Taken 05/27/2024919 by Edie Pack RNice scraper Interventions: declines Goal: Readiness for Transition of [...] documentation flowsheets. Pertinent assessments: Assumed cares @ [phone].Disoriented to time and situation. VSS on RA. [...] bedrest * Pharmacy-Anticoagulation Service - Luis Collado [facility] - 05/26/2024 4:50 PM CDT Clinical Pharmacy - Warfarin Dosing Consult Pharmacy has been consulted to manage this patient???s warfarin therapy. Indication: DVT/PE Prophylaxis Therapy Goal: INR 2-3 Warfarin Prior to Admission: Yes Warfarin SENIOR UI DESIGNER Regimen: 5 mg M-F and No dose [...] * Pharmacy-Vancomycin Dosing Service - Chucho Zuluaga [facility] - 05/25/2024 3:31 PM CDT [...] shift note. Outcome: Progressing Flowsheets (Taken 05/24/2024 2480) Outcome Evaluation: Scrotal dressing changed twice. Did [...] Fall Risk Recent Flowsheet Documentation Taken 05/24/2024 3986 by Jessica Paz RN Safety Promotion/Fall Prevention: [...] member and Thelma (aunt) via phone and [phone] Pertinent Information: outside meds--none added Changes made to SENIOR UI DESIGNER medication list: Added: none Deleted: norvasc, lipitor, Changed: protonix Allergies reviewed with patient and updates made in EHR: yes Medication History Completed By: Graham Joseph RPH 05/23/2024 9:51 PM SENIOR UI DESIGNER Med List Medication Sig Last Dose B Ixaubwf-I-Skrsv Acid (WESCAPS PO) Take 1 capsule by [...] * Pharmacy-Vancomycin Dosing Service - John Rosado [facility] - 05/23/2024 9:03 PM CDT [...] and procedure to be performed. A 16 Nepali coud?? catheter was placed through the urethra, [...] stable condition. Lizandro Barron MD Urology [facility] documented in this encounter Plan [...] 05/30/2024 1:46 PM CDT Antonino DEAN - EVERAKER POCT LABORATORY [facility] Lab [address] Lab (1st floor, no room number) [place] [phone] [place] [address] * Glucose by meter (05/30/2024 7:13 AM CDT) GLUCOSE BY METER POCT 82 70 - 99 mg/dL 05/30/2024 7:19 AM CDT LABORATORY POC Blood, Capillary BLOOD SPECIMEN / Unknown 05/30/2024 7:13 AM CDT 05/30/2024 7:19 AM CDT Antonino DEAN - BEXIANG POCT LABORATORY [facility] Lab [address] Lab (1st floor, no room number) [place] [phone] * (ABNORMAL) INR (05/30/2024 6:54 AM CDT) INR 2.26(H) 0.85 - 1.15 05/30/2024 7:20 AM CDT LABORATORY Blood STRUCTURE OF RIGHT HAND / Unknown Venipuncture / Unknown 05/30/2024 6:54 AM CDT 05/30/2024 7:06 AM CDT Antonino Cheek MD LAB - BLOOD ORDERABL ES LABORATORY [facility] Lab [address] Lab (1st floor, no room number) [place] [address], [facility] * (ABNORMAL) Basic metabolic panel (05/30/2024 6:54 AM CDT) Pathologist [facility] Sodium 133(L) 135 - 145 mmol/L 05/30/2024 [...] LAB - BLOOD ORDERABL ES RH LABORATORY [facility] Lab [address] Lab (1st floor, no room number) [place] [address], [facility] * (ABNORMAL) CBC with platelets (05/30/2024 [...] - BLOOD ORDERABL ES Performing Organization Address [facility]/ZIP Co de Phone Number LABORATORY [facility] Care Lab [address] Lab (1st floor, no room number) [place] [phone] [place] [address] * (ABNORMAL) Glucose by meter (05/30/2024 2:18 AM CDT) GLUCOSE BY METER POCT 138(H) 70 - 99 mg/dL 05/30/2024 2:24 AM CDT RH LABORATORY POC Blood, Capillary BLOOD SPECIMEN / Unknown 05/30/2024 2:18 AM CDT 05/30/2024 2:24 AM CDT Antonino Cheek MD LAB - BEAKER POCT Performing Organization Address [facility]/ZIP Co de Phone Number LABORATORY [facility] Care Lab [address] Lab (1st floor, no room number) [place] [phone] [place] [address] * (ABNORMAL) Glucose by meter (05/29/2024 9:28 PM CDT) GLUCOSE BY METER POCT 160(H) 70 - 99 mg/dL 05/29/2024 9:35 PM CDT LABORATORY POC Blood, Capillary BLOOD SPECIMEN / Unknown 05/29/2024 9:28 PM CDT 05/29/2024 9:35 PM CDT Antonino DEAN - BEAKER POCT Performing Organization Address [facility]/ZIP Co de Phone Number LABORATORY [facility] Care Lab [address] Lab (1st floor, no room number) [place] [phone] [place] [address] * (ABNORMAL) Glucose by meter (05/29/2024 5:54 PM CDT) GLUCOSE BY METER POCT 159(H) 70 - 99 mg/dL 05/29/2024 6:01 PM CDT RH LABORATORY POC Blood, Capillary BLOOD SPECIMEN / Unknown 05/29/2024 5:54 PM CDT 05/29/2024 6:01 PM CDT Antonino Cheek MD LAB - BEAKER POCT LABORATORY [facility] Lab [address] Lab (1st floor, no room number) [place] [address] * (ABNORMAL) Glucose by meter (05/29/2024 1:41 PM CDT) GLUCOSE BY METER POCT 158(H) 70 - 99 mg/dL 05/29/2024 1:48 PM CDT LABORATORY POC Blood, Capillary BLOOD SPECIMEN / Unknown 05/29/2024 1:41 PM CDT 05/29/2024 1:48 PM CDT Antonino Cheek MD LAB - BEAKER POCT Performing Organization Address City/[facility]/ZIP Co de Phone Number LABORATORY [facility] Lab [address] Lab (1st floor, no room number) [place] [address] * Glucose by meter (05/29/2024 7:54 AM CDT) GLUCOSE BY METER POCT 90 70 - 99 mg/dL 05/29/2024 8:01 AM CDT LABORATORY POC Blood, Capillary BLOOD SPECIMEN / Unknown 05/29/2024 7:54 AM CDT 05/29/2024 8:01 AM CDT Antonino Cheek MD LAB - BEAKER POCT LABORATORY [facility] Lab [address] Lab (1st floor, no room number) [place] [phone] [place] [address] * (ABNORMAL) INR (05/29/2024 6:22 AM CDT) INR 1.92(H) 0.85 - 1.15 05/29/2024 6:52 AM CDT RH LABORATORY Blood STRUCTURE OF RIGHT HAND / Unknown Venipuncture / Unknown 05/29/2024 6:22 AM CDT 05/29/2024 6:40 AM CDT Antonino Cheek MD LAB - BLOOD ORDERABL ES LABORATORY [facility] Lab [address] Lab (1st floor, no room number) [place] [address] * (ABNORMAL) Basic [...] 7:01 AM CDT LABORATORY Comment:eGFR calculated usin g [...] LAB - BLOOD ORDERABL ES RH LABORATORY [facility] Care Lab [address] Lab (1st floor, no room number) [place] [address] * (ABNORMAL) CBC [...] LAB - BLOOD ORDERABL ES RH LABORATORY [facility] Lab [address] Lab (1st floor, no room number) [address] * (ABNORMAL) Glucose by meter (05/29/2024 2:26 AM CDT) GLUCOSE BY METER POCT 103(H) 70 - 99 mg/dL 05/29/2024 2:33 AM CDT RH LABORATORY POC Blood, Capillary BLOOD SPECIMEN / Unknown 05/29/2024 2:26 AM CDT 05/29/2024 2:33 AM CDT Antonino Cheek MD LAB - BEAKER POCT LABORATORY [facility] Lab [address] Lab (1st floor, no room number) [address] * (ABNORMAL) Glucose by meter (05/28/2024 9:50 PM CDT) GLUCOSE BY METER POCT 102(H) 70 - 99 mg/dL 05/28/2024 9:56 PM CDT LABORATORY POC Blood, Capillary BLOOD SPECIMEN / Unknown 05/28/2024 9:50 PM CDT 05/28/2024 9:56 PM CDT Antonino DEAN - BEAKER POCT LABORATORY [facility] Care Lab [address] Lab (1st floor, no room number) [address] * (ABNORMAL) Glucose by meter (05/28/2024 5:08 PM CDT) GLUCOSE BY METER POCT 254(H) 70 - 99 mg/dL 05/28/2024 5:16 PM CDT LABORATORY POC Blood, Capillary BLOOD SPECIMEN / Unknown 05/28/2024 5:08 PM CDT 05/28/2024 5:16 PM CDT Antonino Cheek MD LAB - BEAKER POCT LABORATORY [facility] Care Lab [address] Lab (1st floor, no room number) [place] [phone] [place] [address] * Glucose by meter (05/28/2024 1:58 PM CDT) GLUCOSE BY METER POCT 91 70 - 99 mg/dL 05/28/2024 2:05 PM CDT RH LABORATORY POC Blood, Capillary BLOOD SPECIMEN / Unknown 05/28/2024 1:58 PM CDT 05/28/2024 2:05 PM CDT Antonino Cheek MD LAB - BEAKER POCT Performing Organization Address [facility]/ZIP Co de Phone Number LABORATORY [facility] Lab [address] Lab (1st floor, no room number) [place] [phone] [place] [address] * (ABNORMAL) Glucose by meter (05/28/2024 7:48 AM CDT) GLUCOSE BY METER POCT 128(H) 70 - 99 mg/dL 05/28/2024 7:54 AM CDT RH LABORATORY POC Blood, Capillary BLOOD SPECIMEN / Unknown 05/28/2024 7:48 AM CDT 05/28/2024 7:54 AM CDT Antonino Cheek MD LAB - BEAKER POCT LABORATORY [facility] Care Lab [address] Lab (1st floor, no room number) [place] [phone] [place] [address] * Extra Purple Top EDTA (LAB USE ONLY) (05/28/2024 6:07 AM CDT) Hold Specimen JIC 05/28/2024 7:32 AM CDT RH LABORATORY Blood STRUCTURE OF LEFT HAND / Unknown Venipuncture / Unknown 05/28/2024 6:07 AM CDT 05/28/2024 6:17 AM CDT Antonino Cheek MD LAB - BLOOD ORDERABL ES Performing Organization Address City/[facility]/ZIP Co de Phone Number [facility] Care Lab [address] Lab (1st floor, no room number) [place] [phone] [place] [address] * Extra Green Top Tube (LAB USE ONLY) (05/28/2024 6:07 AM CDT) Hold Specimen JIC 05/28/2024 7:32 AM CDT RH LABORATORY Blood STRUCTURE OF LEFT HAND / Unknown Venipuncture / Unknown 05/28/2024 6:07 AM CDT 05/28/2024 6:17 AM CDT Antonino Cheek MD LAB - BLOOD ORDERABL ES Performing Organization Address [facility]/ZIP Co de Phone Number [facility] Care Lab [address] Lab (1st floor, no room number) [place] [phone] * (ABNORMAL) INR (05/28/2024 6:07 AM CDT) INR 1.87(H) 0.85 - 1.15 05/28/2024 6:27 AM CDT RH LABORATORY Blood STRUCTURE OF LEFT HAND / Unknown Venipuncture / Unknown 05/28/2024 6:07 AM CDT 05/28/2024 6:17 AM CDT Antonino Cheek MD LAB - BLOOD ORDERABL ES [facility] Care Lab [address] Lab (1st floor, no room number) [place] [phone] [place] [address] * (ABNORMAL) Hemoglobin (05/28/2024 6:07 AM CDT) Hemoglobin 7.7(L) 13.3 - 17.7 g/dL 05/28/2024 9:02 AM CDT LABORATORY Blood STRUCTURE OF LEFT HAND / Unknown Venipuncture / Unknown 05/28/2024 6:07 AM CDT 05/28/2024 6:17 AM CDT Dileep Anders MD LAB - BLOOD ORD ERABLES LABORATORY [facility] Lab [address] Lab (1st floor, no room number) [place] [address] * (ABNORMAL) Basic [...] MD LAB - BLOOD ORD ERABLES LABORATORY [facility] Lab [address] Lab (1st floor, no room number) [place] [address], [facility] * (ABNORMAL) Glucose by meter (05/28/2024 2:19 AM CDT) GLUCOSE BY METER POCT 102(H) 70 - 99 mg/dL 05/28/2024 2:26 AM CDT LABORATORY POC Blood, Capillary BLOOD SPECIMEN / Unknown 05/28/2024 2:19 AM CDT 05/28/2024 2:26 AM CDT Antonino DEAN - BEXIANG POCT Performing Organization Address City/[facility]/ZIP Co de Phone Number LABORATORY [facility] Care Lab [address] Lab (1st floor, no room number) [place] [address], [facility] * (ABNORMAL) Glucose by meter (05/27/2024 9:05 PM CDT) GLUCOSE BY METER POCT 148(H) 70 - 99 mg/dL 05/27/2024 9:13 PM CDT LABORATORY POC Blood, Capillary BLOOD SPECIMEN / Unknown 05/27/2024 9:05 PM CDT 05/27/2024 9:13 PM CDT Antonino DEAN - BEXIANG POCT LABORATORY [facility] Care Lab [address] Lab (1st floor, no room number) [place] [address], [facility] * (ABNORMAL) Glucose by meter (05/27/2024 5:11 PM CDT) GLUCOSE BY METER POCT 148(H) 70 - 99 mg/dL 05/27/2024 5:20 PM CDT RH LABORATORY POC Blood, Capillary BLOOD SPECIMEN / Unknown 05/27/2024 5:11 PM CDT 05/27/2024 5:20 PM CDT Antonino Cheek MD LAB - BEAKER POCT LABORATORY [facility] Lab [address] Lab (1st floor, no room number) [address] * (ABNORMAL) Glucose by meter (05/27/2024 11:42 AM CDT) GLUCOSE BY METER POCT 149(H) 70 - 99 mg/dL 05/27/2024 11:49 AM CDT RH LABORATORY POC Blood, Capillary BLOOD SPECIMEN / Unknown 05/27/2024 11:42 AM CDT 05/27/2024 11:49 AM CDT Antonino Cheek MD LAB - BEAKER POCT Performing Organization Address City/[facility]/ZIP Co de Phone Number LABORATORY [facility] Lab [address] Lab (1st floor, no room number) [address] * (ABNORMAL) Glucose by meter (05/27/2024 7:44 AM CDT) GLUCOSE BY METER POCT 108(H) 70 - 99 mg/dL 05/27/2024 7:51 AM CDT RH LABORATORY POC Blood, Capillary BLOOD SPECIMEN / Unknown 05/27/2024 7:44 AM CDT 05/27/2024 7:51 AM CDT Antonino Cheek MD LAB - BEAKER POCT LABORATORY [facility] Lab [address] Lab (1st floor, no room number) [address] * (ABNORMAL) INR (05/27/2024 7:03 AM CDT) INR 1.81(H) 0.85 - 1.15 05/27/2024 7:17 AM CDT LABORATORY Blood STRUCTURE OF RIGHT HAND / Unknown Venipuncture / Unknown 05/27/2024 7:03 AM CDT 05/27/2024 7:07 AM CDT Antonino Cheek MD LAB - BLOOD ORDERABL ES LABORATORY [facility] Lab [address] Lab (1st floor, no room number) [address] * (ABNORMAL) Glucose by meter (05/27/2024 2:03 AM CDT) GLUCOSE BY METER POCT 157(H) 70 - 99 mg/dL 05/27/2024 2:10 AM CDT LABORATORY POC Blood, Capillary BLOOD SPECIMEN / Unknown 05/27/2024 2:03 AM CDT 05/27/2024 2:10 AM CDT Antonino Cheek MD LAB - BEAKER POCT LABORATORY POC [facility] Lab [address] Lab (1st floor, no room number) [address] * (ABNORMAL) Glucose by meter (05/26/2024 9:29 PM CDT) GLUCOSE BY METER POCT 155(H) 70 - 99 mg/dL 05/26/2024 9:37 PM CDT LABORATORY POC Blood, Capillary BLOOD SPECIMEN / Unknown 05/26/2024 9:29 PM CDT 05/26/2024 9:37 PM CDT Antonino Cheek MD LAB - BEAKER POCT Performing Organization Address [facility]/ZIP Co de Phone Number LABORATORY [facility] Care Lab [address] Lab (1st floor, no room number) [address] * (ABNORMAL) Glucose by meter (05/26/2024 4:10 PM CDT) GLUCOSE BY METER POCT 174(H) 70 - 99 mg/dL 05/26/2024 4:19 PM CDT RH LABORATORY POC Blood, Capillary BLOOD SPECIMEN / Unknown 05/26/2024 4:10 PM CDT 05/26/2024 4:19 PM CDT Antonino DEAN - BEAKER POCT Performing Organization Address [facility]/ZIP Co de Phone Number LABORATORY [facility] Care Lab [address] Lab (1st floor, no room number) [address] * (ABNORMAL) INR (05/26/2024 4:09 PM CDT) INR 1.67(H) 0.85 - 1.15 05/26/2024 4:28 PM CDT RH LABORATORY Blood STRUCTURE OF LEFT UPPER LIMB / Unknown Venipuncture / Unknown 05/26/2024 4:09 PM CDT 05/26/2024 4:15 PM CDT Antonino Cheek MD LAB - BLOOD ORDERABL ES [facility] Acute Care Lab [address] Lab (1st floor, no room number) [address] * (ABNORMAL) Glucose by meter (05/26/2024 11:37 AM CDT) GLUCOSE BY METER POCT 197(H) 70 - 99 mg/dL 05/26/2024 11:44 AM CDT RH LABORATORY POC Blood, Capillary BLOOD SPECIMEN / Unknown 05/26/2024 11:37 AM CDT 05/26/2024 11:44 AM CDT Antonino Cheek MD LAB - BEAKER POCT LABORATORY [facility] Care Lab [address] Lab (1st floor, no room number) [place] [address] * Glucose by meter (05/26/2024 8:22 AM CDT) GLUCOSE BY METER POCT 85 70 - 99 mg/dL 05/26/2024 8:29 AM CDT LABORATORY POC Blood, Capillary BLOOD SPECIMEN / Unknown 05/26/2024 8:22 AM CDT 05/26/2024 8:29 AM CDT Antonino DEAN - DAVID POCT Performing Organization Address [facility]/ZIP Co de Phone Number LABORATORY [facility] Lab [address] Lab (1st floor, no room number) [place] [phone] * (ABNORMAL) CBC [...] LAB - BLOOD ORDERABL ES RH LABORATORY [facility] Lab [address] Lab (1st floor, no room number) [place] [address] * (ABNORMAL) Basic metabolic panel (05/26/2024 5:47 AM CDT) Sodium 135 135 - 145 mmol/L 05/26/2024 6:33 AM CDT RH LABORATORY Potassium 4.4 3.4 - 5.3 mmol/L 05/26/2024 6:33 AM CDT RH LABORATORY Chloride 97(L) 98 - 107 mmol/L 05/26/2024 6:33 AM CDT RH LABORATORY Carbon Dioxide (CO2) 28 22 - 29 mmol/L 05/26/2024 6:33 AM CDT RH LABORATORY Anion Gap 10 7 - 15 mmol/L 05/26/2024 6:33 AM CDT RH LABORATORY Urea Nitrogen 30.0(H) 8.0 - 23.0 mg/dL 05/26/2024 6:33 AM CDT RH LABORATORY Creatinine 5.84(H) 0.67 - 1.17 mg/dL 05/26/2024 6:33 AM CDT RH LABORATORY GFR Estimate 10(L) >60 mL/min/1.7 3m2 05/26/2024 6:33 AM CDT RH LABORATORY Comment:eGFR calculated usin [...] MD LAB - BLOOD ORDERABL ES LABORATORY [facility] Lab [address] Lab (1st floor, no room number) [address] * (ABNORMAL) Glucose by meter (05/26/2024 1:57 AM CDT) GLUCOSE BY METER POCT 123(H) 70 - 99 mg/dL 05/26/2024 2:04 AM CDT RH LABORATORY POC Blood, Capillary BLOOD SPECIMEN / Unknown 05/26/2024 1:57 AM CDT 05/26/2024 2:04 AM CDT Antonino Cheek MD LAB - BEAKER POCT LABORATORY [facility] Lab [address] [employer] Lab (1st floor, no room number) [address] * (ABNORMAL) Glucose by meter (05/25/2024 9:32 PM CDT) GLUCOSE BY METER POCT 155(H) 70 - 99 mg/dL 05/25/2024 9:39 PM CDT RH LABORATORY POC Blood, Capillary BLOOD SPECIMEN / Unknown 05/25/2024 9:32 PM CDT 05/25/2024 9:39 PM CDT Antonino Cheek MD LAB - BEAKER POCT LABORATORY [facility] Lab [address] Lab (1st floor, no room number) [address] * (ABNORMAL) Glucose by meter (05/25/2024 7:06 PM CDT) GLUCOSE BY METER POCT 183(H) 70 - 99 mg/dL 05/25/2024 7:14 PM CDT RH LABORATORY POC Blood, Capillary BLOOD SPECIMEN / Unknown 05/25/2024 7:06 PM CDT 05/25/2024 7:14 PM CDT Antonino Cheek MD LAB - BEAKER POCT Performing Organization Address [facility]/ZIP Co de Phone Number LABORATORY POC [facility] Care Lab [address] Lab (1st floor, no room number) [place] [phone] [place] [address] * (ABNORMAL) Glucose by meter (05/25/2024 5:29 PM CDT) GLUCOSE BY METER POCT 142(H) 70 - 99 mg/dL 05/25/2024 5:36 PM CDT RH LABORATORY POC Blood, Capillary BLOOD SPECIMEN / Unknown 05/25/2024 5:29 PM CDT 05/25/2024 5:36 PM CDT Antonino DEAN - DAVID POCT Performing Organization Address [facility]/ZIP Co de Phone Number LABORATORY [facility] Care Lab [address] Lab (1st floor, no room number) [place] [phone] [place] [address] * Vancomycin level (05/25/2024 2:04 PM CDT) Vancomycin 11.9 ug/mL 05/25/2024 3:28 PM CDT RH LABORATORY Comment: Traditional Dosing Therapeutic Range: Trough 10-15 ug/mL Peak 20-40 ug/mL Critical: Greater than 25.0 ug/mL Blood STRUCTURE OF RIGHT UPPER LIMB / Unknown Venipuncture / Unknown 05/25/2024 2:04 PM CDT 05/25/2024 2:07 PM CDT Antonino Cheek MD LAB - BLOOD ORDERABL ES Performing Organization Address City/[facility]/ZIP Co de Phone Number LABORATORY [facility] Acute Care Lab [address] Lab (1st floor, no room number) [place] [phone] [place] [address] * Extra Purple Top EDTA (LAB USE ONLY) (05/25/2024 2:04 PM CDT) Hold Specimen JIC 05/25/2024 3:17 PM CDT RH LABORATORY Blood STRUCTURE OF RIGHT UPPER LIMB / Unknown Venipuncture / Unknown 05/25/2024 2:04 PM CDT 05/25/2024 2:07 PM CDT Antonino Cheek MD LAB - BLOOD ORDERABL ES [facility] Acute Care Lab [address] Lab (1st floor, no room number) [place] [address] * Extra Green Top Tube (LAB USE ONLY) (05/25/2024 2:04 PM CDT) Hold Specimen JIC 05/25/2024 3:17 PM CDT LABORATORY Blood STRUCTURE OF RIGHT UPPER LIMB / Unknown Venipuncture / Unknown 05/25/2024 2:04 PM CDT 05/25/2024 2:07 PM CDT Antonino Cheek MD LAB - BLOOD ORDERABL ES Performing Organization Address [facility]/ZIP Co de Phone Number [facility] Acute Care Lab [address] Lab (1st floor, no room number) [place] [address], [facility] * Glucose by meter (05/25/2024 2:01 PM CDT) GLUCOSE BY METER POCT 70 70 - 99 mg/dL 05/25/2024 2:08 PM CDT LABORATORY POC Blood, Capillary BLOOD SPECIMEN / Unknown 05/25/2024 2:01 PM CDT 05/25/2024 2:08 PM CDT Antonino Cheek MD LAB - BEAKER POCT LABORATORY POC [facility] Lab [address] Lab (1st floor, no room number) [place] [phone], [facility] * Hepatitis B surface antigen (05/25/2024 9:25 AM CDT) Hepatitis B Surface Antigen Nonreactive Nonreactive 05/25/2024 2:23 PM CDT UU LABORATORY Blood BLOOD SPECIMEN / Unknown Venipuncture / Unknown 05/25/2024 9:25 AM CDT 05/25/2024 10:13 AM CDT Jose Enrique Naylor MD LAB - BLOOD ORDERABL ES Performing Organization Address [facility] Co de Phone Number U LABORATORY [facility] [address] [facility], Room [address] [phone] * Hepatitis B [...] LAB - BLOOD ORDERABL ES U LABORATORY [facility] [address] [facility], Room [address] [address] * Glucose by meter (05/25/2024 5:35 AM CDT) GLUCOSE BY METER POCT 86 70 - 99 mg/dL 05/25/2024 5:42 AM CDT LABORATORY POC Blood, Capillary BLOOD SPECIMEN / Unknown 05/25/2024 5:35 AM CDT 05/25/2024 5:42 AM CDT Antonino Cheek MD LAB - BEAKER POCT LABORATORY [facility] Lab [address] Lab (1st floor, no room number) [place] [address], [place] * Glucose by meter (05/25/2024 2:01 AM CDT) GLUCOSE BY METER POCT 86 70 - 99 mg/dL 05/25/2024 2:08 AM CDT RH LABORATORY POC Blood, Capillary BLOOD SPECIMEN / Unknown 05/25/2024 2:01 AM CDT 05/25/2024 2:08 AM CDT Antonino Cheek MD LAB - BEAKER POCT Performing Organization Address City/[facility]/ZIP Co de Phone Number LABORATORY [facility] Lab [address] Lab (1st floor, no room number) [place] [phone] * Glucose by meter (05/24/2024 8:52 PM CDT) GLUCOSE BY METER POCT 96 70 - 99 mg/dL 05/24/2024 8:59 PM CDT LABORATORY POC Blood, Capillary BLOOD SPECIMEN / Unknown 05/24/2024 8:52 PM CDT 05/24/2024 8:59 PM CDT Antonino Cheek MD LAB - BEAKER POCT LABORATORY [facility] Lab [address] Lab (1st floor, no room number) [place] [phone], [facility] * Glucose by meter (05/24/2024 5:05 PM CDT) GLUCOSE BY METER POCT 84 70 - 99 mg/dL 05/24/2024 5:32 PM CDT RH LABORATORY POC Blood, Capillary BLOOD SPECIMEN / Unknown 05/24/2024 5:05 PM CDT 05/24/2024 5:32 PM CDT Antonino Cheek MD LAB - BEAKER POCT Performing Organization Address [facility]/State/ZIP Co de Phone Number LABORATORY [facility] Lab [address] Lab (1st floor, no room number) [place] [address] * (ABNORMAL) INR (05/24/2024 2:16 PM CDT) INR 1.16(H) 0.85 - 1.15 05/24/2024 2:34 PM CDT RH LABORATORY Blood BLOOD SPECIMEN / Unknown Venipuncture / Unknown 05/24/2024 2:16 PM CDT 05/24/2024 2:21 PM CDT Lizandro Barron MD LAB - BLOOD ORDERABL ES Performing Organization Address [facility]/ZIP Co de Phone Number [facility] Lab [address] Lab (1st floor, no room number) [place] [address], [facility] * Glucose by meter (05/24/2024 12:20 PM CDT) GLUCOSE BY METER POCT 75 70 - 99 mg/dL 05/24/2024 12:26 PM CDT LABORATORY POC Blood, Capillary BLOOD SPECIMEN / Unknown 05/24/2024 12:20 PM CDT 05/24/2024 12:26 PM CDT Antonino DEAN - BEAKER POCT Performing Organization Address City/[facility]/ZIP Co de Phone Number LABORATORY [facility] Lab [address] Lab (1st floor, no room number) [place] [phone], [facility] * Glucose by meter (05/24/2024 9:12 AM CDT) GLUCOSE BY METER POCT 86 70 - 99 mg/dL 05/24/2024 9:19 AM CDT RH LABORATORY POC Blood, Capillary BLOOD SPECIMEN / Unknown 05/24/2024 9:12 AM CDT 05/24/2024 9:19 AM CDT Antonino DEAN - [facility] POCT RH LABORATORY [facility] Acute Care Lab [address] Lab (1st floor, no room number) [place] [address], [facility] * (ABNORMAL) CBC with [...] MD LAB - BLOOD ORDERABL ES LABORATORY [facility] Acute Care Lab [address] [facility] Lab (1st floor, no room number) [place] [address], [facility] * (ABNORMAL) Comprehensive metabolic panel (05/24/2024 [...] MD LAB - BLOOD ORDERABL ES LABORATORY [facility] Acute Care Lab [address] Lab (1st floor, no room number) [place] [phone] * INR (05/24/2024 6:09 AM CDT) INR 1.14 0.85 - 1.15 05/24/2024 6:27 AM CDT LABORATORY Blood STRUCTURE OF LEFT HAND / Unknown Venipuncture / Unknown 05/24/2024 6:09 AM CDT 05/24/2024 6:14 AM CDT Lizandro Barorn MD LAB - BLOOD ORDERABL ES LABORATORY [facility] Care Lab [address] Lab (1st floor, no room number) [address] * (ABNORMAL) Glucose by meter (05/24/2024 4:49 AM CDT) GLUCOSE BY METER POCT 119(H) 70 - 99 mg/dL 05/24/2024 4:56 AM CDT LABORATORY POC Blood, Capillary BLOOD SPECIMEN / Unknown 05/24/2024 4:49 AM CDT 05/24/2024 4:56 AM CDT Antonino DEAN - BEAKER POCT Performing Organization Address City/[facility]/ZIP Co de Phone Number LABORATORY POC [facility] Lab [address] Lab (1st floor, no room number) [address] * (ABNORMAL) Glucose by meter (05/24/2024 1:13 AM CDT) GLUCOSE BY METER POCT 100(H) 70 - 99 mg/dL 05/24/2024 1:20 AM CDT LABORATORY POC Blood, Capillary BLOOD SPECIMEN / Unknown 05/24/2024 1:13 AM CDT 05/24/2024 1:20 AM CDT Antonino Cheek MD LAB - BEAKER POCT LABORATORY [facility] Care Lab [address] Lab (1st floor, no room number) [address] * INR (05/23/2024 10:19 PM CDT) INR 1.04 0.85 - 1.15 05/23/2024 10:43 PM CDT RH LABORATORY Blood STRUCTURE OF LEFT UPPER LIMB / Unknown Venipuncture / Unknown 05/23/2024 10:19 PM CDT 05/23/2024 10:26 PM CDT Lizandro Barron MD LAB - BLOOD ORDERABL ES Performing Organization Address [facility]/ZIP Co de Phone Number [facility] Lab [address] Lab (1st floor, no room number) [address] * Glucose by meter (05/23/2024 9:58 PM CDT) GLUCOSE BY METER POCT 83 70 - 99 mg/dL 05/23/2024 10:04 PM CDT LABORATORY POC Blood, Capillary BLOOD SPECIMEN / Unknown 05/23/2024 9:58 PM CDT 05/23/2024 10:04 PM CDT Antonino Cheek MD LAB - BEAKER POCT Performing Organization Address [facility]/ZIP Co de Phone Number LABORATORY [facility] Care Lab [address] Lab (1st floor, no room number) [address] * (ABNORMAL) Glucose by meter (05/23/2024 9:06 PM CDT) GLUCOSE BY METER POCT 47(LL) 70 - 99 mg/dL 05/23/2024 9:13 PM CDT RH LABORATORY POC Comment:Dr/RN Notified Blood, Capillary BLOOD SPECIMEN / Unknown 05/23/2024 9:06 PM CDT 05/23/2024 9:13 PM CDT Antonino Cheek MD LAB - BEAKER POCT LABORATORY [facility] Lab [address] Lab (1st floor, no room number) [address] * Glucose by meter (05/23/2024 8:41 PM CDT) GLUCOSE BY METER POCT 78 70 - 99 mg/dL 05/23/2024 8:48 PM CDT LABORATORY POC Blood, Capillary BLOOD SPECIMEN / Unknown 05/23/2024 8:41 PM CDT 05/23/2024 8:48 PM CDT Antonino Cheek MD LAB - BEAKER POCT Performing Organization Address [facility]/ZIP Co de Phone Number LABORATORY [facility] Lab [address] Lab (1st floor, no room number) [address] * (ABNORMAL) Glucose by meter (05/23/2024 7:55 PM CDT) GLUCOSE BY METER POCT 67(L) 70 - 99 mg/dL 05/23/2024 8:02 PM CDT LABORATORY POC Blood, Capillary BLOOD SPECIMEN / Unknown 05/23/2024 7:55 PM CDT 05/23/2024 8:02 PM CDT Antonino Cheek MD LAB - BEAKER POCT LABORATORY [facility] Lab [address] Lab (1st floor, no room number) [address] * (ABNORMAL) Tissue Aerobic Bacterial Culture Routine [...] Comment:Intrinsicall y Resistant Morganella morganii Ampicillin/ Sulbactam OJJO >=32 ug/mL: Resistant Morganella morganii Piperacillin/Tazobactam JOJO [...] - MICRO GENERAL ORDERABLES U[facility] IDD LABORATORY [facility] Lab [address] [facility], Room [address] * (ABNORMAL) Gram Stain (05/23/2024 6:42 [...] - MICRO GENERAL ORDERABLES Performing Organization Address City/[facility] Co de Phone Number [facility] IDD LABORATORY [facility] Inf. Diseases Diag. Lab [address] [facility], [address] * Anaerobic Bacterial Culture Routine (05/23/2024 6:42 PM CDT) Culture 4+ Mixed Aerobic and Anaerobic dev JOJO 05/25/2024 2:01 PM CDT UU IDD LABORATORY Comment:No predominant organ ism Tissue SCROTAL STRUCTURE / Unknown Non-blood Collection / Unknown 05/23/2024 6:42 PM CDT 05/23/2024 6:46 PM CDT Lizandro Barron MD LAB - MICRO GENERAL ORDERABLES [facility] ID[facility] LABORATORY [facility] Inf. Diseases Diag. Lab [address] [facility], [address] [place] [address], [facility] * Glucose by meter (05/23/2024 5:41 PM CDT) GLUCOSE BY METER POCT 90 70 - 99 mg/dL 05/23/2024 5:49 PM CDT LABORATORY POC Blood, Capillary BLOOD SPECIMEN / Unknown 05/23/2024 5:41 PM CDT 05/23/2024 5:49 PM CDT Vi Coe DO LAB - BEAKER POC T LABORATORY POC [facility] Acute Care Lab [address] [facility] Lab (1st floor, no room number) [place] [address] * EKG 12-lead, [...] RESULTS QTc 458 ms RADIOLOGY RESULTS P Parks 54 degrees RADIOLOGY RESULTS R AXIS -5 degrees RADIOLOGY RESULTS T Parks 24 degrees RADIOLOGY RESULTS Interpretation ECG Sinus rhythm with 1st degree A-V block Septal infarct , age undetermined Abnormal ECG When compared with ECG of 02-Mar-2024 14:00, Septal infarct is now Present No significant change was found Confirmed by - EMERGENCY ROOM, PHYSICIAN ([id number]), manager editorial LIZANDRO ZABALA ([id number]) on 05/24/2024 6:44:53 AM RADIOLOGY RESULTS 05/23/2024 5:08 PM CDT 05/24/2024 6:44 AM CDT Pan Michelle MD ECG ORDERABLES RADIOLOGY RESULTS * (ABNORMAL) INR (05/23/2024 3:42 PM CDT) INR 1.29(H) 0.85 - 1.15 05/23/2024 4:21 PM CDT LABORATORY Blood BLOOD SPECIMEN / Unknown Venipuncture / Unknown 05/23/2024 3:42 PM CDT 05/23/2024 3:45 PM CDT Vi Coe DO LAB - BLOOD ORDE MYRANDA LABORATORY [facility] Acute Care Lab [address] Lab (1st floor, no room number) [place] [address] * CT Abdomen [...] 2:35 PM. MIKE LIPSCOMB MD SYSTEM ID: [id number] Narrative 05/23/2024 2:[address] ABDOMEN [...] veins which are not included in the [id number]-gl-[id number]. MUSCULOSKELETAL: Stable degenerative changes at L4-L5 with [...] veins which are not included in the [id number]-ir-vqlh. 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 No destructive lesions in the bones. IMPRESSION: 1. 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 2. Other chronic findings as discussed above. Findings were discussed with Dr. Kenna Coe at 2:35 PM. MIKE LIPSCOMB MD SYSTEM ID: [id number] Vi Ruizter DO IMG CT ORDERABLE S * Adult Type and Screen (05/23/2024 2:07 PM CDT) ABO/RH(D) O POS 05/23/2024 1:37 PM CDT RH BLOOD BANK Antibody Screen Negative Negative 05/23/2024 1:37 PM CDT RH BLOOD BANK SPECIMEN EXPIRATION DATE [id number] 05/23/2024 1:37 PM CDT RH BLOOD BANK Blood BLOOD SPECIMEN / Unknown Venipuncture / Unknown 05/23/2024 2:07 PM CDT 05/23/2024 2:10 PM CDT Vi Coe DO LAB - BLOOD BANK TEST ORDER RH BLOOD BANK [address] [place] [address], [facility] * (ABNORMAL) CBC with [...] DO LAB - BLOOD ROVERTO WHITMORE LABORATORY [facility] Acute Care Lab [address] [facility] Lab (1st floor, no room number) [place] [address], [facility] * Lactic acid whole blood (05/23/2024 1:50 PM CDT) Pathologist [facility] Lactic Acid 0.9 0.7 - 2.0 mmol/L 05/23/2024 1:57 PM CDT RH LABORATORY Blood BLOOD SPECIMEN / Unknown Venipuncture / Unknown 05/23/2024 1:50 PM CDT 05/23/2024 1:54 PM CDT Vi Coe DO LAB - BLOOD ORDE RABLES LABORATORY [facility] Acute [facility] Lab [address] Lab (1st floor, no room number) [place] [address] * Blood Culture Peripheral Blood (05/23/2024 1:50 PM CDT) Pathologist [facility] Culture No Growth 05/28/2024 4:06 PM CDT UU IDD LABORATORY Blood BLOOD SPECIMEN / Unknown Venipuncture / Unknown 05/23/2024 1:50 PM CDT 05/23/2024 1:53 PM CDT Vi Coe DO LAB - MICRO GENE RAL ORDERABLES U[facility] IDD LABORATORY [facility] Inf. Diseases Diag. Lab [address] [facility], [address] [place] [address] * (ABNORMAL) Comprehensive [...] 2:21 PM CDT RH LABORATORY Comment:eGFR calculated 2020 CKD-EPI equation. Calcium 9.1 8.8 - [...] - 45 U/L 05/23/2024 2:21 PM CDT LABORATORY ALT 26 0 - 70 U/L [...] DO LAB - BLOOD ROVERTO WHITMORE LABORATORY [facility] [address] [facility] ([facility]st floor, no room number) [place] [address], [facility] * (ABNORMAL) INR (05/23/2024 1:50 PM CDT) INR >10.00(HH) 0.85 - 1.15 05/23/2024 2:30 PM CDT LABORATORY Blood BLOOD SPECIMEN / Unknown Venipuncture / Unknown 05/23/2024 1:50 PM CDT 05/23/2024 1:55 PM CDT [place] LAB - BLOOD ROVERTO WHITMORE [facility] Organization Address City/State/ZIP Co de Phone Number LABORATORY [facility] Lab [address] Lab (1st floor, no room number) [place] [address], [facility] documented in this encounter Visit Diagnoses [...] hours., Indications: Skin and Soft Tissue Infection $05/23/2024 2:34 PM CDT 1,750 mg 250 mL/hr [...] On Tue05/28/24 at 1800, For 1 dose $Given 05/28/2024 6:31 PM CDT 4 mg warfarin ANTICOAGULANT (COUMADIN) tablet 4 mg 4 mg, Oral, ONCE AT 6PM, On Tue05/29/24 at 1800, For 1 dose $Given 05/29/2024 [...] not met)1405 (Not Given - Provider: Cecilia Crabtree, LINDA - Reason: Order parameters not met)1700 (Canceled [...] Pack RN)2141 ($New Bag - Provider: Kristin Lauren, LINDA) 0648 ($New Bag - Provider: Margarette Griffin, LINDA)1409 ($New Bag - Provider: Cecilia rCabtree, LINDA) sennosides (SENOKOT) tablet 2 tablet 2 [...] Leon, RN)1343 ($Given - Provider: Edie Pack, LINDA)2132 ($Given [...] stools. documented in this encounter Care Teams Movable Bulkhead Installer Relationship Specialty Start Date End Date Cornell Butt PCP - General 06/24/11 documented as of this encounter
--- OUTSIDE RECORDS SUMMARY | 2024-07-05 09:50 | XMS_ITS | Encounter Summary ---
Author Organization [place] Address [facility] 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) Emergency Dept [address] [place] [address] Referral ID Status Reason Start Date Expiration Date Visits Re quested Visits Authorized [id number] 1 1 Encounter Details Date Type Department Care Team (Late st Contact Info) Description 05/23/2024 6:02 PM CDT Anesthesia Event [facility] PeriOp Services [address] [place] [address] Tom Castro MD [facility] [place] [facility] [address] [place] [address] Pan Michelle MD [facility] [address] [place], [place] [id number] Anesthesia Record Procedure Summary Procedure Name Responsible Anesthesiologist Anesthesia Start Time Anesthesia Stop Time Incision and drainage, debridement of scrotal skin and subcutaneous tissues for necrotizing soft tissue infection of the scrotum (Scrotum) Tom Castro MD 05/23/24 [address]/[id number]/241918 Events Date Time Event Comment 05/23/2024 1711 1718 MEAT SMOKER Ready for Procedure 180 AN REASSESS I attest that I have identified and re-evaluated the patient immediately before the induction of anesthesia and I am satisfied that the anesthetic plan is suitable for the patient's condition and procedure. The first vital signs recorded are pre- induction. 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 Questions answered and patient/direct sales representative(s) expressed understanding. - Discussed: - Discussed [...] Times: 05/23/2024 6:21 PM Staff - ? MEAT SMOKER: Yasemin Almaguer APRN CRNA ? Performed By: [...] Time: 05/23/2024 6:21 PM Tom Castro MD [place] [facility] documented in this encounter Visit Diagnoses [...] mg documented in this encounter Care Teams Business Systems Administrator Relationship Specialty Start Date End Date Preet Huff PCP - General 06/24/11 documented as of this encounter
--- OUTSIDE RECORDS SUMMARY | 2024-07-05 09:51 | XMS_ITS | Encounter Summary ---
Author Organization [place] Address [address] [place] [address] Care Team Providers Care Industrial Electrical Engineer Name Role Phone RefugioPreet Primary Care Provider [phone] Encounter Details Date Type Department Care Team (Late st Contact Info) Description 02/08/2022 External Order Results [facility] [address] [place] [address] Outside, Provider Social History Tobacco Use Types Packs/Day Years Used Date Smoking Tobacco: Never Smokeless Tobacco: Never Alcohol Use Standard Drinks/Week Comments No 0 (1 standard drink = 0.6 oz pur e alcohol) PHQ-2 Answer Date Recorded PHQ-2 Score 0 10/18/2018 Sex and Gender Information Value Date Recorded Sex Assigned at Not on file Gender Identity Male 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
--- OUTSIDE RECORDS SUMMARY | 2024-07-05 09:51 | XMS_ITS ---
Author Organization [place] Address [address] [place] [address] Care Team Providers Care Clerical And Office Support Workers Name Role Phone Preet Huff Primary Care Provider [phone] Transitional Care Management Status:Closed (Closed) Start date:05/31/2024 Enrollment date:06/01/2024 End date:06/14/2024 Close reason:Goals met Continued Care and Services Coordination
--- OUTSIDE RECORDS SUMMARY | 2024-07-05 09:51 | XMS_ITS | Encounter Summary ---
Author Organization [place] Address [address] [facility] [place] [address] Care Team Providers Care Ladle Puller Name Role Phone Preet Huff Primary Care Provider [phone] Jaxon Saravia MD Unavailable [phone] Encounter Details Date Type Department Care Team (Late st Contact Info) Description 05/07/2013 Orders Only [facility] Interventional Radiology 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
--- OUTSIDE RECORDS SUMMARY | 2024-07-05 09:51 | XMS_ITS | Encounter Summary ---
Author Organization [facility] Address [address] [place] [address] Care Team Providers Care Qa Lead Name Role Phone Preet Huff Primary Care Provider Jaxon Saravia MD Unavailable [phone] Encounter Details Date Type Department Care Team (Late st Contact Info) Description 05/07/[address] [facility] Interventional Radiology 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
--- OUTSIDE RECORDS SUMMARY | 2024-07-05 09:51 | XMS_ITS | Encounter Summary ---
Author Organization [facility] Address [address] [facility] [place] [address] Care Team Providers Care Box Person Name Role Phone Preet Huff Primary Care Provider Jaxon Saravia MD Unavailable [phone] Encounter Details Date Type Department Care Team (Late st Contact Info) Description 12/21/2012 Orders Only [facility] Interventional Radiology 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
--- OUTSIDE RECORDS SUMMARY | 2024-07-05 09:51 | XMS_ITS | Encounter Summary ---
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 [...] Flowsheet Documentation Taken 05/28/2024809 by Edie Pack RNanalytical data miner Interventions: declines Goal: Readiness for Transition of [...] documentation flowsheets. Pertinent assessments: Assumed cares @ [phone].Disoriented to situation and time. VSS on RA. [...] shift note. Outcome: Progressing Flowsheets (Taken 05/28/2024 0680) Outcome Evaluation: Denies pain, slept well. Goal: [...] Flowsheet Documentation Taken 05/27/2024919 by Edie Pack RNanalytical data miner Interventions: declines Goal: Readiness for Transition of [...] documentation flowsheets. Pertinent assessments: Assumed cares @ [phone].Disoriented to time and situation. VSS on RA. [...] 2-3 Warfarin Prior to Admission: Yes Warfarin BUILD MANAGER Regimen: 5 mg M-F and No dose [...] * Pharmacy-Vancomycin Dosing Service - Chucho Zuluaga [facility] - 05/25/2024 3:31 PM CDT [...] Glycemia Recent Flowsheet Documentation Taken 05/24/20242119 by Mrace Leon RN Glycemic Management: blood glucose monitored [...] shift note. Outcome: Progressing Flowsheets (Taken 05/24/2024 0006) Outcome Evaluation: Scrotal dressing changed twice. Did [...] Fall Risk Recent Flowsheet Documentation Taken 05/24/2024 8706 by Jessica Paz RN Safety Promotion/Fall Prevention: [...] member and Thelma (aunt) via phone and [phone] Pertinent Information: outside meds--none added Changes made to BUILD MANAGER medication list: Added: none Deleted: norvasc, lipitor, Changed: protonix Allergies reviewed with patient and updates made in EHR: yes Medication History Completed By: Graham Joseph RPH 05/23/2024 9:51 PM BUILD MANAGER Med List Medication Sig Last Dose B Bbriahd-R-Stkll Acid (WESCAPS PO) Take 1 capsule by [...] and procedure to be performed. A 16 Urdu coud?? catheter was placed through the urethra, [...] in stable condition. Lizandro Barron MD Urology [facility] documented in this encounter Plan [...] 05/30/2024 1:46 PM CDT Antonino DEAN - BEAKER POCT Performing Organization Address City/[facility]/ZIP Co de Phone Number LABORATORY [facility] [address] Lab (1st floor, no room number) [address] [place] [address] * Glucose by meter (05/30/2024 7:13 AM CDT) GLUCOSE BY METER POCT 82 70 - 99 mg/dL 05/30/2024 7:19 AM CDT RH LABORATORY POC Blood, Capillary BLOOD SPECIMEN / Unknown 05/30/2024 7:13 AM CDT 05/30/2024 7:19 AM CDT Antonino DEAN - BEAKER POCT LABORATORY [facility] [address] Lab (1st floor, no room number) [address] * (ABNORMAL) INR (05/30/2024 6:54 AM CDT) INR 2.26(H) 0.85 - 1.15 05/30/2024 7:20 AM CDT RH LABORATORY Blood STRUCTURE OF RIGHT HAND / Unknown Venipuncture / Unknown 05/30/2024 6:54 AM CDT 05/30/2024 7:06 AM CDT Antonino Cheek MD LAB - BLOOD ORDERABL ES RH LABORATORY [facility] [address] Lab (1st floor, no room number) [place] [address] * (ABNORMAL) Basic metabolic panel [...] LAB - BLOOD ORDERABL ES RH LABORATORY [facility] [address] Lab (1st floor, no room number) [place] [address] * (ABNORMAL) CBC with platelets [...] LAB - BLOOD ORDERABL ES RH LABORATORY [facility] [address] Lab (1st floor, no room number) [address] [place] [address] * (ABNORMAL) Glucose by meter (05/30/2024 2:18 AM CDT) GLUCOSE BY METER POCT 138(H) 70 - 99 mg/dL 05/30/2024 2:24 AM CDT RH LABORATORY POC Blood, Capillary BLOOD SPECIMEN / Unknown 05/30/2024 2:18 AM CDT 05/30/2024 2:24 AM CDT Antonino Cheek MD LAB - BEAKER POCT LABORATORY [facility] [address] Lab (1st floor, no room number) [address] [place] [address] * (ABNORMAL) Glucose by meter (05/29/2024 9:28 PM CDT) GLUCOSE BY METER POCT 160(H) 70 - 99 mg/dL 05/29/2024 9:35 PM CDT LABORATORY POC Blood, Capillary BLOOD SPECIMEN / Unknown 05/29/2024 9:28 PM CDT 05/29/2024 9:35 PM CDT Antonino Cheek MD LAB - BEAKER POCT LABORATORY [facility] [address] Lab (1st floor, no room number) [address] * (ABNORMAL) Glucose by meter (05/29/2024 5:54 PM CDT) GLUCOSE BY METER POCT 159(H) 70 - 99 mg/dL 05/29/2024 6:01 PM CDT LABORATORY POC Blood, Capillary BLOOD SPECIMEN / Unknown 05/29/2024 5:54 PM CDT 05/29/2024 6:01 PM CDT Antonino Cheek MD LAB - BEAKER POCT LABORATORY [facility] [address] Lab (1st floor, no room number) [place] [id number] [place] [address] * (ABNORMAL) Glucose by meter (05/29/2024 1:41 PM CDT) GLUCOSE BY METER POCT 158(H) 70 - 99 mg/dL 05/29/2024 1:48 PM CDT RH LABORATORY POC Blood, Capillary BLOOD SPECIMEN / Unknown 05/29/2024 1:41 PM CDT 05/29/2024 1:48 PM CDT Antonino Cheek MD LAB - BEAKER POCT Performing Organization Address City/[facility]/ZIP Co de Phone Number LABORATORY [facility] [address] Lab (1st floor, no room number) [place] [id number] * Glucose by meter (05/29/2024 7:54 AM CDT) GLUCOSE BY METER POCT 90 70 - 99 mg/dL 05/29/2024 8:01 AM CDT RH LABORATORY POC Blood, Capillary BLOOD SPECIMEN / Unknown 05/29/2024 7:54 AM CDT 05/29/2024 8:01 AM CDT Antonino DEAN - BEAKER POCT LABORATORY [facility] [address] Lab (1st floor, no room number) [place] [id number] * (ABNORMAL) INR (05/29/2024 6:22 AM CDT) INR 1.92(H) 0.85 - 1.15 05/29/2024 6:52 AM CDT RH LABORATORY Blood STRUCTURE OF RIGHT HAND / Unknown Venipuncture / Unknown 05/29/2024 6:22 AM CDT 05/29/2024 6:40 AM CDT Antonino hCeek MD LAB - BLOOD ORDERABL ES RH LABORATORY [facility] [address] [facility] Lab (1st floor, no room number) [place] [address], [facility] * (ABNORMAL) Basic metabolic panel (05/29/2024 6:22 [...] - 99 mg/dL 05/29/2024 7:01 AM CDT LABORATORY Blood STRUCTURE OF RIGHT HAND / Unknown Venipuncture / Unknown 05/29/2024 6:22 AM CDT 05/29/2024 6:40 AM CDT Charles Mcneal MD LAB - BLOOD ORDERABL ES LABORATORY [facility] [address] Lab (1st floor, no room number) [place] [address] * (ABNORMAL) CBC with platelets (05/29/2024 6:22 AM CDT) [facility] WBC Count 7.2 4.0 - 11.0 10e3/uL [...] - 15.0 % 05/29/2024 6:50 AM CDT LABORATORY Platelet Count 183 150 - 450 10e3/uL 05/29/2024 6:50 AM CDT RH LABORATORY Blood STRUCTURE OF RIGHT HAND / Unknown Venipuncture / Unknown 05/29/2024 6:22 AM CDT 05/29/2024 6:40 AM CDT Charles Mcneal MD LAB - BLOOD ORDERABL ES LABORATORY [facility] [address] Lab (1st floor, no room number) [place] [address], [facility] * (ABNORMAL) Glucose by meter (05/29/2024 2:26 AM CDT) GLUCOSE BY METER POCT 103(H) 70 - 99 mg/dL 05/29/2024 2:33 AM CDT RH LABORATORY POC Blood, Capillary BLOOD SPECIMEN / Unknown 05/29/2024 2:26 AM CDT 05/29/2024 2:33 AM CDT Antonino Cheek MD LAB - BEAKER POCT LABORATORY [facility] [address] Lab (1st floor, no room number) [address] * (ABNORMAL) Glucose by meter (05/28/2024 9:50 PM CDT) GLUCOSE BY METER POCT 102(H) 70 - 99 mg/dL 05/28/2024 9:56 PM CDT LABORATORY POC Blood, Capillary BLOOD SPECIMEN / Unknown 05/28/2024 9:50 PM CDT 05/28/2024 9:56 PM CDT Antonino DEAN - BEXIANG POCT LABORATORY [facility] [address] Lab (1st floor, no room number) [address] * (ABNORMAL) Glucose by meter (05/28/2024 5:08 PM CDT) GLUCOSE BY METER POCT 254(H) 70 - 99 mg/dL 05/28/2024 5:16 PM CDT LABORATORY POC Blood, Capillary BLOOD SPECIMEN / Unknown 05/28/2024 5:08 PM CDT 05/28/2024 5:16 PM CDT Antonino DEAN - BEXIANG POCT LABORATORY POC [facility] [address] Lab (1st floor, no room number) [place] [id number] [place] [address] * Glucose by meter (05/28/2024 1:58 PM CDT) GLUCOSE BY METER POCT 91 70 - 99 mg/dL 05/28/2024 2:05 PM CDT RH LABORATORY POC Blood, Capillary BLOOD SPECIMEN / Unknown 05/28/2024 1:58 PM CDT 05/28/2024 2:05 PM CDT Antonino Cheek MD LAB - BEAKER POCT LABORATORY [facility] [address] Lab (1st floor, no room number) [place] [id number] [place] [address] * (ABNORMAL) Glucose by meter (05/28/2024 7:48 AM CDT) GLUCOSE BY METER POCT 128(H) 70 - 99 mg/dL 05/28/2024 7:54 AM CDT LABORATORY POC Blood, Capillary BLOOD SPECIMEN / Unknown 05/28/2024 7:48 AM CDT 05/28/2024 7:54 AM CDT Antonino Cheek MD LAB - BEAKER POCT LABORATORY [facility] [address] Lab (1st floor, no room number) [place] [id number] [place] [address] * Extra Purple Top EDTA (LAB USE ONLY) (05/28/2024 6:07 AM CDT) Hold Specimen JIC 05/28/2024 7:32 AM CDT LABORATORY Blood STRUCTURE OF LEFT HAND / Unknown Venipuncture / Unknown 05/28/2024 6:07 AM CDT 05/28/2024 6:17 AM CDT Antonino Cheek MD LAB - BLOOD ORDERABL ES Performing Organization Address [facility]/ZIP Co de Phone Number [facility] [address] Lab (1st floor, no room number) [address] * Extra Green Top Tube (LAB USE ONLY) (05/28/2024 6:07 AM CDT) Hold Specimen JIC 05/28/2024 7:32 AM CDT RH LABORATORY Blood STRUCTURE OF LEFT HAND / Unknown Venipuncture / Unknown 05/28/2024 6:07 AM CDT 05/28/2024 6:17 AM CDT Antonino Cheek MD LAB - BLOOD ORDERABL ES Performing Organization Address [facility]/ZIP Co de Phone Number [facility] [address] Lab (1st floor, no room number) [address] * (ABNORMAL) INR (05/28/2024 6:07 AM CDT) INR 1.87(H) 0.85 - 1.15 05/28/2024 6:27 AM CDT RH LABORATORY Blood STRUCTURE OF LEFT HAND / Unknown Venipuncture / Unknown 05/28/2024 6:07 AM CDT 05/28/2024 6:17 AM CDT Antonino Cheek MD LAB - BLOOD ORDERABL ES Performing Organization Address [facility]/ZIP Co de Phone Number [facility] [address] Lab (1st floor, no room number) [address] * (ABNORMAL) Hemoglobin (05/28/2024 6:07 AM CDT) Hemoglobin 7.7(L) 13.3 - 17.7 g/dL 05/28/2024 9:02 AM CDT RH LABORATORY Blood STRUCTURE OF LEFT HAND / Unknown Venipuncture / Unknown 05/28/2024 6:07 AM CDT 05/28/2024 6:17 AM CDT Dileep Anders MD LAB - BLOOD ORD ERABLES RH LABORATORY [facility] [address] [facility] Lab (1st floor, no room number) [place] [address], [facility] * (ABNORMAL) Basic metabolic panel (05/28/2024 6:07 [...] Anders MD LAB - BLOOD ORD ERABLES [facility] [address] Lab (1st floor, no room number) [place] [address] * (ABNORMAL) Glucose by meter (05/28/2024 2:19 AM CDT) GLUCOSE BY METER POCT 102(H) 70 - 99 mg/dL 05/28/2024 2:26 AM CDT LABORATORY POC Blood, Capillary BLOOD SPECIMEN / Unknown 05/28/2024 2:19 AM CDT 05/28/2024 2:26 AM CDT Antonino DEAN - BEXIANG POCT Performing Organization Address City/[facility]/ZIP Co de Phone Number LABORATORY [facility] [address] Lab (1st floor, no room number) [place] [address], [facility] * (ABNORMAL) Glucose by meter (05/27/2024 9:05 PM CDT) GLUCOSE BY METER POCT 148(H) 70 - 99 mg/dL 05/27/2024 9:13 PM CDT LABORATORY POC Blood, Capillary BLOOD SPECIMEN / Unknown 05/27/2024 9:05 PM CDT 05/27/2024 9:13 PM CDT Antonino Cheek MD LAB - BEAKER POCT LABORATORY [facility] [address] Lab (1st floor, no room number) [place] [id number] * (ABNORMAL) Glucose by meter (05/27/2024 5:11 PM CDT) GLUCOSE BY METER POCT 148(H) 70 - 99 mg/dL 05/27/2024 5:20 PM CDT RH LABORATORY POC Blood, Capillary BLOOD SPECIMEN / Unknown 05/27/2024 5:11 PM CDT 05/27/2024 5:20 PM CDT Antonino DEAN - BEAKER POCT LABORATORY [facility] [address] Lab (1st floor, no room number) [place] [address], [place] * (ABNORMAL) Glucose by meter (05/27/2024 11:42 AM CDT) GLUCOSE BY METER POCT 149(H) 70 - 99 mg/dL 05/27/2024 11:49 AM CDT LABORATORY POC Blood, Capillary BLOOD SPECIMEN / Unknown 05/27/2024 11:42 AM CDT 05/27/2024 11:49 AM CDT Antonino DEAN - BEXIANG POCT Performing Organization Address City/[facility]/ZIP Co de Phone Number LABORATORY [facility] [address] Lab (1st floor, no room number) [place] [id number], [facility] * (ABNORMAL) Glucose by meter (05/27/2024 7:44 AM CDT) GLUCOSE BY METER POCT 108(H) 70 - 99 mg/dL 05/27/2024 7:51 AM CDT LABORATORY POC Blood, Capillary BLOOD SPECIMEN / Unknown 05/27/2024 7:44 AM CDT 05/27/2024 7:51 AM CDT Antonino DEAN - BEAKER POCT LABORATORY [facility] [address] Lab (1st floor, no room number) [place] [id number], [facility] * (ABNORMAL) INR (05/27/2024 7:03 AM CDT) INR 1.81(H) 0.85 - 1.15 05/27/2024 7:17 AM CDT RH LABORATORY Blood STRUCTURE OF RIGHT HAND / Unknown Venipuncture / Unknown 05/27/2024 7:03 AM CDT 05/27/2024 7:07 AM CDT Antonino Cheek MD LAB - BLOOD ORDERABL ES [facility] [address] Lab (1st floor, no room number) [address] [place] [address] * (ABNORMAL) Glucose by meter (05/27/2024 2:03 AM CDT) GLUCOSE BY METER POCT 157(H) 70 - 99 mg/dL 05/27/2024 2:10 AM CDT RH LABORATORY POC Blood, Capillary BLOOD SPECIMEN / Unknown 05/27/2024 2:03 AM CDT 05/27/2024 2:10 AM CDT Antonino Cheek MD LAB - BEAKER POCT Performing Organization Address [facility]/ZIP Co de Phone Number [facility] [address] Lab (1st floor, no room number) [address] [place] [address] * (ABNORMAL) Glucose by meter (05/26/2024 9:29 PM CDT) GLUCOSE BY METER POCT 155(H) 70 - 99 mg/dL 05/26/2024 9:37 PM CDT LABORATORY POC Blood, Capillary BLOOD SPECIMEN / Unknown 05/26/2024 9:29 PM CDT 05/26/2024 9:37 PM CDT Antonino Cheek MD LAB - BEAKER POCT LABORATORY [facility] [address] Lab (1st floor, no room number) [place] [id number] [place] [address] * (ABNORMAL) Glucose by meter (05/26/2024 4:10 PM CDT) GLUCOSE BY METER POCT 174(H) 70 - 99 mg/dL 05/26/2024 4:19 PM CDT RH LABORATORY POC Blood, Capillary BLOOD SPECIMEN / Unknown 05/26/2024 4:10 PM CDT 05/26/2024 4:19 PM CDT Antonino Cheek MD LAB - BEAKER POCT LABORATORY POC [facility] Lab [address] Lab (1st floor, no room number) [address] [place] [address] * (ABNORMAL) INR (05/26/2024 4:09 PM CDT) INR 1.67(H) 0.85 - 1.15 05/26/2024 4:28 PM CDT LABORATORY Blood STRUCTURE OF LEFT UPPER LIMB / Unknown Venipuncture / Unknown 05/26/2024 4:09 PM CDT 05/26/2024 4:15 PM CDT Antonino Cheek MD LAB - BLOOD ORDERABL ES LABORATORY [facility] Lab [address] Lab (1st floor, no room number) [place] [id number] * (ABNORMAL) Glucose by meter (05/26/2024 11:37 AM CDT) GLUCOSE BY METER POCT 197(H) 70 - 99 mg/dL 05/26/2024 11:44 AM CDT RH LABORATORY POC Blood, Capillary BLOOD SPECIMEN / Unknown 05/26/2024 11:37 AM CDT 05/26/2024 11:44 AM CDT Antoninolucretia DEAN - DAVID POCT RH LABORATORY [facility] [address] Lab (1st floor, no room number) [place] [id number] * Glucose by meter (05/26/2024 8:22 AM CDT) GLUCOSE BY METER POCT 85 70 - 99 mg/dL 05/26/2024 8:29 AM CDT LABORATORY POC Blood, Capillary BLOOD SPECIMEN / Unknown 05/26/2024 8:22 AM CDT 05/26/2024 8:29 AM CDT Antonino DEAN - DAVID POCT Performing Organization Address [facility]/ZIP Co de Phone Number RH LABORATORY [facility] [address] Lab (1st floor, no room number) [place] [phone] * (ABNORMAL) CBC with platelets and [...] LAB - BLOOD ORDERABL ES RH LABORATORY [facility] [address] Lab (1st floor, no room number) [place] [address], [facility] * (ABNORMAL) Basic metabolic panel (05/26/2024 5:47 [...] MD LAB - BLOOD ORDERABL ES LABORATORY [facility] [address] Lab (1st floor, no room number) [place] [address], [facility] * (ABNORMAL) Glucose by meter (05/26/2024 1:57 AM CDT) GLUCOSE BY METER POCT 123(H) 70 - 99 mg/dL 05/26/2024 2:04 AM CDT RH LABORATORY POC Blood, Capillary BLOOD SPECIMEN / Unknown 05/26/2024 1:57 AM CDT 05/26/2024 2:04 AM CDT Antonino Cheek MD LAB - BEAKER POCT LABORATORY [facility] [address] Lab (1st floor, no room number) [place] [id number] [place] [address] * (ABNORMAL) Glucose by meter (05/25/2024 9:32 PM CDT) GLUCOSE BY METER POCT 155(H) 70 - 99 mg/dL 05/25/2024 9:39 PM CDT RH LABORATORY POC Blood, Capillary BLOOD SPECIMEN / Unknown 05/25/2024 9:32 PM CDT 05/25/2024 9:39 PM CDT Antonino Cheek MD LAB - BEAKER POCT Performing Organization Address City/[facility]/ZIP Co de Phone Number LABORATORY [facility] [address] Lab (1st floor, no room number) [place] [id number], [facility] * (ABNORMAL) Glucose by meter (05/25/2024 7:06 PM CDT) GLUCOSE BY METER POCT 183(H) 70 - 99 mg/dL 05/25/2024 7:14 PM CDT RH LABORATORY POC Blood, Capillary BLOOD SPECIMEN / Unknown 05/25/2024 7:06 PM CDT 05/25/2024 7:14 PM CDT Antonino Cheek MD LAB - BEAKER POCT LABORATORY [facility] [address] Lab (1st floor, no room number) [place] [id number] * (ABNORMAL) Glucose by meter (05/25/2024 5:29 PM CDT) GLUCOSE BY METER POCT 142(H) 70 - 99 mg/dL 05/25/2024 5:36 PM CDT LABORATORY POC Blood, Capillary BLOOD SPECIMEN / Unknown 05/25/2024 5:29 PM CDT 05/25/2024 5:36 PM CDT Antonino Cheek MD LAB - BEAKER POCT LABORATORY POC [facility] [address] Lab (1st floor, no room number) [place] [id number] * Vancomycin level (05/25/2024 2:04 PM CDT) Pathologist [facility] Vancomycin 11.9 ug/mL 05/25/2024 3:28 PM CDT RH LABORATORY Comment: Traditional Dosing Therapeutic Range: Trough 10-15 ug/mL Peak 20-40 ug/mL Critical: Greater than 25.0 ug/mL Blood STRUCTURE OF RIGHT UPPER LIMB / Unknown Venipuncture / Unknown 05/25/2024 2:04 PM CDT 05/25/2024 2:07 PM CDT Antonino Cheek MD LAB - BLOOD ORDERABL ES LABORATORY [facility] [address] Lab (1st floor, no room number) [place] [id number] * Extra Purple Top EDTA (LAB USE ONLY) (05/25/2024 2:04 PM CDT) Hold Specimen JIC 05/25/2024 3:17 PM CDT RH LABORATORY Blood STRUCTURE OF RIGHT UPPER LIMB / Unknown Venipuncture / Unknown 05/25/2024 2:04 PM CDT 05/25/2024 2:07 PM CDT Antonino Cheek MD LAB - BLOOD ORDERABL ES LABORATORY [facility] [address] Lab (1st floor, no room number) [address] * Extra Green Top Tube (LAB USE ONLY) (05/25/2024 2:04 PM CDT) Hold Specimen JIC 05/25/2024 3:17 PM CDT LABORATORY Blood STRUCTURE OF RIGHT UPPER LIMB / Unknown Venipuncture / Unknown 05/25/2024 2:04 PM CDT 05/25/2024 2:07 PM CDT Antonino Cheek MD LAB - BLOOD ORDERABL ES Performing Organization Address City/[facility]/ZIP Co de Phone Number LABORATORY [facility] [address] Lab (1st floor, no room number) [address] * Glucose by meter (05/25/2024 2:01 PM CDT) GLUCOSE BY METER POCT 70 70 - 99 mg/dL 05/25/2024 2:08 PM CDT LABORATORY POC Blood, Capillary BLOOD SPECIMEN / Unknown 05/25/2024 2:01 PM CDT 05/25/2024 2:08 PM CDT Antonino Cheek MD LAB - BEAKER POCT LABORATORY POC [facility] [address] Lab (1st floor, no room number) [address] * Hepatitis B surface antigen (05/25/2024 9:25 AM CDT) Hepatitis B Surface Antigen Nonreactive Nonreactive 05/25/2024 2:23 PM CDT [facility] LABORATORY Blood BLOOD SPECIMEN / Unknown Venipuncture / Unknown 05/25/2024 9:25 AM CDT 05/25/2024 10:13 AM CDT Jose Enrique Naylor MD LAB - BLOOD ORDERABL ES LABORATORY [facility] [place] [facility] [address] [facility], [address] [phone] * Hepatitis B Surface Antibody [...] >1,000.00 <8.5 m[IU]/mL 05/25/2024 2:27 PM CDT LABORATORY Blood BLOOD SPECIMEN / Unknown Venipuncture / Unknown 05/25/2024 9:25 AM CDT 05/25/2024 10:13 AM CDT Jose Enrique Naylor MD LAB - BLOOD ORDERABL ES Performing Organization Address City/[facility] Co de Phone Number LABORATORY [facility] [facility] [address] [facility] [address], [address] [id number] * Glucose by meter (05/25/2024 5:35 AM CDT) GLUCOSE BY METER POCT 86 70 - 99 mg/dL 05/25/2024 5:42 AM CDT LABORATORY POC Blood, Capillary BLOOD SPECIMEN / Unknown 05/25/2024 5:35 AM CDT 05/25/2024 5:42 AM CDT Antonino Cheek MD LAB - BEAKER POCT LABORATORY [facility] [address] Lab (1st floor, no room number) [place] [phone] * Glucose by meter (05/25/2024 2:01 AM CDT) GLUCOSE BY METER POCT 86 70 - 99 mg/dL 05/25/2024 2:08 AM CDT [facility] LABORATORY POC Blood, Capillary BLOOD SPECIMEN / Unknown 05/25/2024 2:01 AM CDT 05/25/2024 2:08 AM CDT Antonino Cheek MD LAB - BEAKER POCT LABORATORY [facility] [address] Lab (1st floor, no room number) [place] [phone] [facility] * Glucose by meter (05/24/2024 8:52 PM CDT) GLUCOSE BY METER POCT 96 70 - 99 mg/dL 05/24/2024 8:59 PM CDT LABORATORY POC Blood, Capillary BLOOD SPECIMEN / Unknown 05/24/2024 8:52 PM CDT 05/24/2024 8:59 PM CDT Antonino Cheek MD LAB - BEAKER POCT LABORATORY [facility] Lab [address] Lab (1st floor, no room number) [place] [id number], [facility] * Glucose by meter (05/24/2024 5:05 PM CDT) GLUCOSE BY METER POCT 84 70 - 99 mg/dL 05/24/2024 5:32 PM CDT LABORATORY POC Blood, Capillary BLOOD SPECIMEN / Unknown 05/24/2024 5:05 PM CDT 05/24/2024 5:32 PM CDT Antonino Cheek MD LAB - BEAKER POCT Performing Organization Address [facility]/ZIP Co de Phone Number LABORATORY [facility] [address] Lab (1st floor, no room number) [address] * (ABNORMAL) INR (05/24/2024 2:16 PM CDT) INR 1.16(H) 0.85 - 1.15 05/24/2024 2:34 PM CDT RH LABORATORY Blood BLOOD SPECIMEN / Unknown Venipuncture / Unknown 05/24/2024 2:16 PM CDT 05/24/2024 2:21 PM CDT Lizandro Barron MD LAB - BLOOD ORDERABL ES Performing Organization Address [facility]/ZIP Co de Phone Number [facility] Lab [address] Lab (1st floor, no room number) [address] * Glucose by meter (05/24/2024 12:20 PM CDT) GLUCOSE BY METER POCT 75 70 - 99 mg/dL 05/24/2024 12:26 PM CDT LABORATORY POC Blood, Capillary BLOOD SPECIMEN / Unknown 05/24/2024 12:20 PM CDT 05/24/2024 12:26 PM CDT Antonino DEAN - BEAKER POCT Performing Organization Address City/[facility]/ZIP Co de Phone Number LABORATORY [facility] [address] Lab (1st floor, no room number) [address] * Glucose by meter (05/24/2024 9:12 AM CDT) GLUCOSE BY METER POCT 86 70 - 99 mg/dL 05/24/2024 9:19 AM CDT LABORATORY POC Blood, Capillary BLOOD SPECIMEN / Unknown 05/24/2024 9:12 AM CDT 05/24/2024 9:19 AM CDT Antonino Cheek MD LAB - [facility] POCT RH LABORATORY [facility] Lab [address] Lab (1st floor, no room number) [place] [address], [facility] * (ABNORMAL) CBC with platelets and differential [...] MD LAB - BLOOD ORDERABL ES LABORATORY [facility] Lab [address] Lab (1st floor, no room number) [place] [address], [facility] * (ABNORMAL) Comprehensive metabolic panel (05/24/2024 6:09 [...] MD LAB - BLOOD ORDERABL ES LABORATORY [facility] Lab [address] Lab (1st floor, no room number) [place] [address], [facility] * INR (05/24/2024 6:09 AM CDT) INR 1.14 0.85 - 1.15 05/24/2024 6:27 AM CDT RH LABORATORY Blood STRUCTURE OF LEFT HAND / Unknown Venipuncture / Unknown 05/24/2024 6:09 AM CDT 05/24/2024 6:14 AM CDT Lizandro Barron MD LAB - BLOOD ORDERABL ES [facility] Lab [address] Lab (1st floor, no room number) [place] [address] * (ABNORMAL) Glucose by meter (05/24/2024 4:49 AM CDT) GLUCOSE BY METER POCT 119(H) 70 - 99 mg/dL 05/24/2024 4:56 AM CDT LABORATORY POC Blood, Capillary BLOOD SPECIMEN / Unknown 05/24/2024 4:49 AM CDT 05/24/2024 4:56 AM CDT Antonino DEAN - BEAKER POCT Performing Organization Address [facility]/ZIP Co de Phone Number LABORATORY [facility] Lab [address] Lab (1st floor, no room number) [place] [address] * (ABNORMAL) Glucose by meter (05/24/2024 1:13 AM CDT) GLUCOSE BY METER POCT 100(H) 70 - 99 mg/dL 05/24/2024 1:20 AM CDT LABORATORY POC Blood, Capillary BLOOD SPECIMEN / Unknown 05/24/2024 1:13 AM CDT 05/24/2024 1:20 AM CDT Antonino Cheek MD LAB - BEAKER POCT LABORATORY [facility] [address] Lab (1st floor, no room number) [address] * INR (05/23/2024 10:19 PM CDT) INR 1.04 0.85 - 1.15 05/23/2024 10:43 PM CDT LABORATORY Blood STRUCTURE OF LEFT UPPER LIMB / Unknown Venipuncture / Unknown 05/23/2024 10:19 PM CDT 05/23/2024 10:26 PM CDT Lizandro Barron MD LAB - BLOOD ORDERABL ES LABORATORY [facility] Lab [address] Lab (1st floor, no room number) [address] * Glucose by meter (05/23/2024 9:58 PM CDT) GLUCOSE BY METER POCT 83 70 - 99 mg/dL 05/23/2024 10:04 PM CDT LABORATORY POC Blood, Capillary BLOOD SPECIMEN / Unknown 05/23/2024 9:58 PM CDT 05/23/2024 10:04 PM CDT Antonino DEAN - BEAKER POCT Performing Organization Address [facility]/ZIP Co de Phone Number LABORATORY POC [facility] [address] Lab (1st floor, no room number) [address] * (ABNORMAL) Glucose by meter (05/23/2024 9:06 PM CDT) GLUCOSE BY METER POCT 47(LL) 70 - 99 mg/dL 05/23/2024 9:13 PM CDT RH LABORATORY POC Comment:Dr/RN Notified Blood, Capillary BLOOD SPECIMEN / Unknown 05/23/2024 9:06 PM CDT 05/23/2024 9:13 PM CDT Antonino DEAN - BEAKER POCT LABORATORY [facility] Lab [address] Lab (1st floor, no room number) [place] [id number] [place] [address] * Glucose by meter (05/23/2024 8:41 PM CDT) GLUCOSE BY METER POCT 78 70 - 99 mg/dL 05/23/2024 8:48 PM CDT LABORATORY POC Blood, Capillary BLOOD SPECIMEN / Unknown 05/23/2024 8:41 PM CDT 05/23/2024 8:48 PM CDT Antonino Cheek MD LAB - BEAKER POCT Performing Organization Address City/[facility]/ZIP Co de Phone Number LABORATORY [facility] [address] Lab (1st floor, no room number) [place] [phone] * (ABNORMAL) Glucose by meter (05/23/2024 7:55 PM CDT) GLUCOSE BY METER POCT 67(L) 70 - 99 mg/dL 05/23/2024 8:02 PM CDT LABORATORY POC Blood, Capillary BLOOD SPECIMEN / Unknown 05/23/2024 7:55 PM CDT 05/23/2024 8:02 PM CDT Antonino Cheek MD LAB - BEAKER POCT LABORATORY [facility] Lab [address] Lab (1st floor, no room number) [place] [id number] [place] [address] * (ABNORMAL) Tissue Aerobic Bacterial Culture Routine [...] - MICRO GENERAL ORDERABLES [facility] LABORATORY [facility] Inf. Diseases Diag. Lab [address] [facility], Room [place] [id number] [place] [address] * (ABNORMAL) Gram Stain (05/23/2024 6:42 PM [...] - MICRO GENERAL ORDERABLES [facility] LABORATORY [facility] Inf. Diseases Diag. Lab [address] [facility], Room [place] [id number] * Anaerobic Bacterial Culture Routine (05/23/2024 6:42 PM CDT) Culture 4+ Mixed Aerobic and Anaerobic dev JOJO 05/25/2024 2:01 PM CDT [facility]AT[facility] Comment:No predominant organ ism Tissue SCROTAL STRUCTURE / Unknown Non-blood Collection / Unknown 05/23/2024 6:42 PM CDT 05/23/2024 6:46 PM CDT Lizandro Barron MD LAB - MICRO GENERAL ORDERABLES [facility] LABORATORY [facility] Inf. Diseases Diag. Lab [address] [facility], Room [place] [id number] * Glucose by meter (05/23/2024 5:41 PM CDT) GLUCOSE BY METER POCT 90 70 - 99 mg/dL 05/23/2024 5:49 PM CDT RH LABORATORY POC Blood, Capillary BLOOD SPECIMEN / Unknown 05/23/2024 5:41 PM CDT 05/23/2024 5:49 PM CDT Vi Coe DO LAB - BEAKER POC T RH LABORATORY POC [facility] Lab [address] Lab (1st floor, no room number) [place] [address] * EKG 12-lead, tracing only (05/23/2024 5:08 PM CDT) Systolic Blood Pressure mmHg RADIOLOGY RESULTS Diastolic Blood Pressure mmHg RADIOLOGY RESULTS Ventricular Rate 63 BPM RAD IOLOGY RESULTS Atrial Rate 63 BPM RADIOLOG Y RESULTS TN Interval 222 ms RADIOLOG Y RESULTS QRS Duration 102 ms RADIOLO GY RESULTS QT 448 ms RADIOLOGY RESULTS QTc 458 ms RADIOLOGY RESULTS P [place] 54 degrees RADIOLOGY RESULTS R AXIS -5 degrees RADIOLOGY RESULTS T [place] 24 degrees RADIOLOGY RESULTS Interpretation ECG Sinus rhythm with 1st degree A-V block Septal infarct , age undetermined Abnormal ECG When compared with ECG of 02-Mar-2024 14:00, Septal infarct is now Present No significant change was found Confirmed by - EMERGENCY ROOM, PHYSICIAN ([id number]), communications editor LIZANDRO ZABALA ([id number]) on 05/24/2024 6:44:53 AM RADIOLOGY RESULTS 05/23/2024 5:08 PM CDT 05/24/2024 6:44 AM CDT Pan Michelle MD ECG ORDERABLES RADIOLOGY RESULTS * (ABNORMAL) INR (05/23/2024 3:42 PM CDT) INR 1.29(H) 0.85 - 1.15 05/23/2024 4:21 PM CDT RH LABORATORY Blood BLOOD SPECIMEN / Unknown Venipuncture / Unknown 05/23/2024 3:42 PM CDT 05/23/2024 3:45 PM CDT Vi Coe DO LAB - BLOOD ORDE MYRANDA [facility] Lab [address] Lab (1st floor, no room number) [place] [address], [facility] * CT Abdomen Pelvis w Contrast (05/23/2024 [...] 2:35 PM. MIKE LIPSCOMB MD SYSTEM ID: ??[id number] Narrative 05/23/2024 2:[address] ABDOMEN [...] veins which are not included in the jxjms-pr-rtsx. MUSCULOSKELETAL: Stable degenerative changes at L4-L5 with [...] veins which are not included in the fignl-iw-oiyz. 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 No destructive lesions in the bones. IMPRESSION: 1. 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 2. Other chronic findings as discussed above. Findings were discussed with Dr. Kenna Coe at 2:35 PM. MIKE LIPSCOMB MD SYSTEM ID: [id number] Vi Coe DO IMG CT ORDERABLE S * Adult Type and Screen (05/23/2024 2:07 PM CDT) ABO/RH(D) O POS 05/23/2024 1:37 PM CDT RH BLOOD BANK Antibody Screen Negative Negative 05/23/2024 1:37 PM CDT RH BLOOD BANK SPECIMEN EXPIRATION DATE [id number] 05/23/2024 1:37 PM CDT RH BLOOD BANK Blood BLOOD SPECIMEN / Unknown Venipuncture / Unknown 05/23/2024 2:07 PM CDT 05/23/2024 2:10 PM CDT Vi Coe DO LAB - BLOOD BANK TEST ORDER RH BLOOD BANK [address] [place] [address], [facility] * (ABNORMAL) CBC with platelets and differential [...] LAB - BLOOD ORDE MYRANDA RH LABORATORY [facility] Lab [address] Lab (1st floor, no room number) [place] [address], [facility] * Lactic acid whole blood (05/23/2024 1:50 PM CDT) Lactic Acid 0.9 0.7 - 2.0 mmol/L 05/23/2024 1:57 PM CDT RH LABORATORY Blood BLOOD SPECIMEN / Unknown Venipuncture / Unknown 05/23/2024 1:50 PM CDT 05/23/2024 1:54 PM CDT Vi Coe DO LAB - BLOOD ORDE RABLES RH LABORATORY [facility] Lab [address] Lab (1st floor, no room number) [place] [address], [facility] * Blood Culture Peripheral Blood (05/23/2024 1:50 PM CDT) Culture No Growth 05/28/2024 4:06 PM CDT [facility] LABORATORY Blood BLOOD SPECIMEN / Unknown Venipuncture / Unknown 05/23/2024 1:50 PM CDT 05/23/2024 1:53 PM CDT Vi Coe DO LAB - MICRO GENE RAL ORDERABLES [facility] LABORATORY [facility] Inf. Diseases Diag. Lab [address] [facility], [address] [place] [address], [facility] * (ABNORMAL) Comprehensive metabolic panel (05/23/2024 1:50 [...] LAB - BLOOD ORDE MYRANDA RH LABORATORY [facility] Lab [address] Lab (1st floor, no room number) [place] [address], [facility] * (ABNORMAL) INR (05/23/2024 1:50 PM CDT) INR >10.00(HH) 0.85 - 1.15 05/23/2024 2:30 PM CDT RH LABORATORY Blood BLOOD SPECIMEN / Unknown Venipuncture / Unknown 05/23/2024 1:50 PM CDT 05/23/2024 1:55 PM CDT Vi Coe DO LAB - BLOOD AMAIRANIYaneth WHITMORE [facility] Lab [address] [facility] Lab (1st floor, no room number) [place] [address], [facility] documented in this encounter Visit Diagnoses Diagnosis [...] on Tue05/24/24 at 0923, Until Tue05/30/24 at 192, Do not give any medication that may [...] moderate pain, Starting on Tue05/23/24 at 2046 $Given 05/25/2024 8:44 AM CDT 0.2 mg [...] OR IV Push, ONCE IN DIALYSIS/CRRT, On 05/28/24 at 0800, For 1 dose, LOADING DOSE Administer loading dose prior to heparin infusion. PRE DIALYSIS RUN Dialysis, Dialysis 0948 ($Given - Provider: Cintia Valadez RN) heparin (porcine) injection (COMPLETED) 500 Units, Hemodialysis Machine OR IV Push, ONCE IN DIALYSIS/CRRT, On Tue05/30/24 at 0730, For 1 dose, LOADING DOSE Administer loading dose prior to heparin infusion. PRE DIALYSIS RUN Dialysis, Dialysis 09 ($Given - Provider: Abbie Ramirez, LINDA) insulin [...] 350 mg/dL after administration of correction dose. 2221 (Not Given - Provider: Heidi Koo RN - Reason: Order parameters not met) 215 (Not Given - Provider: Kristin Lauren RN [...] RN) 0535 ($New Bag - Provider: Marce Leon RN)1343 ($New Bag - Provider: Edie Pack RN)2141 ($New Bag - Provider: Kristin Lauren RN) 0648 ($New Bag - Provider: Margarette Griffin RN)1409 ($New Bag - Provider: Cecilia Crabtree RN) sennosides (SENOKOT) tablet 2 tablet 2 tablet, Oral, EVERY OTHER DAY, First dose on Tue05/24/24 at 0900, Hold for loose stools. 0805 ($Given - Provider: Edie Pack RN) 0808 (Not Given - Provider: Cecilia Crabtree RN - Reason: Patient not available)1247 ($Given - Provider: Cecilia Crabtree RN) sodium chloride (PF) 0.9% PF flush 3 mL 3 mL, Intracatheter, EVERY 8 HOURS, First dose on Tue05/23/24 at 2100, to lock peripheral IV dormant line 0807 ($Given - Provider: Edie Pack RN)1419 ($Given - Provider: Edie Pack RN)2200 (Canceled Entry - Provider: Orders Generic Provider - Comment: Automatically canceled at discontinue of medication order) 0535 ($Given - Provider: Marce Leon RN)1343 ($Given - Provider: Edie Pack RN)2132 ($Given - Provider: Kristin Lauren RN) 0648 ($Given - Provider: Margarette Griffin RN)1411 [...] Koo, LINDA) 2033 ($Given - Provider: Kristin Lauren RN) warfarin ANTICOAGULANT (COUMADIN) half-tab 3.5 mg 3.5 [...] Cintia Valadez, LINDA)1219 (Stopped - Provider: Cintia Valadez RN) heparin [...] of treatment (CANCELED) CONTINUOUS PRN, Starting on 8/21/24 at 0723, Until Tue05/30/24 at 1224, Stop [...] stools. documented in this encounter Care Teams Hotel Breakfast Attendant Relationship Specialty Start Date End Date Cornell Butt PCP - General 06/24/11 documented as of this encounter"
--- OUTSIDE RECORDS SUMMARY | 2024-07-05 09:51 | XMS_ITS ---
Author Organization [facility] Address [address] [place] [address] Care Team Providers Care Optometric Assistant Name Role Phone Preet Huff Primary Care Provider [phone] Transitional Care Management Status:Closed (Closed) Start date:03/13/2024 Enrollment date:03/13/2024 End date:2024 Close reason:Goals met Continued Care and Services Coordination
--- OUTSIDE RECORDS SUMMARY | 2024-07-05 09:51 | XMS_ITS | Encounter Summary ---
Author Organization [place] Address [address] [facility] [place] [address] Care Team Providers Care Cloth Burler Name Role Phone Preet Huff Primary Care Provider [phone] Jaxon Saravia MD Unavailable [phone] Encounter Details Date Type Department Care Team (Late st Contact Info) Description 10/20/2011 Hospital PHYS STANDARD [address] [id number] Wojciech Holman MD [facility] [address] [place] [id number] ESRD (end stage renal disease) on dialysis (H); Hyperkalemia Social History Tobacco Use Types Packs/Day Years Used Date Smoking Tobacco: Never Smokeless Tobacco: Never Alcohol Use Standard Drinks/Week Comments No 0 (1 standard drink = 0.6 oz pur e alcohol) Sex and Gender Information Value Date Recorded Sex Assigned at Not on file Gender Identity Male 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
--- OUTSIDE RECORDS SUMMARY | 2024-07-05 09:51 | XMS_ITS | Encounter Summary ---
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
== END 2024-07-05 09:45 | disposition home or self-care (01) ==
LOC: WOUND 09:45
PROVIDERS: PCP Internal Medicine Nephrology; Visit Provider Nurse Practitioner Family
DX: N49.3 Fournier gangrene (principal); N50.89 Other specified disorders of the male genital organs; E11.9 Type 2 diabetes mellitus without complications
CPT/HCPCS: 11042

== ENCOUNTER 2024-07-11 23:15 | Outpatient (CLI) | payer MEDICARE, MEDICAID, SELFPAY ==
--- OUTSIDE RECORDS SUMMARY | 2024-07-15 14:27 | XMS_ITS | Continuity of Care Document ---
Author Organization [facility] Address [address] [address] [place] [address] Phone Care Team Providers Care Legal Activity Adjudicator Name Role Phone Paul Rasmussen MD Unavailable Unavailable Procedures Procedure Date Init Hosp-da E&m Mod Severity 4 Subsqt Hosp-da E&m Sig Compl 3 24 Subsqt Hosp-da E&m Minr Compl 4 Ugi Endo; Dx W/wo Collec Specm Colonoscopy Flex; W/bx 1/mx Moderate sedation, initial 15 minutes Ma Ugi Endo; Dx W/wo Collec Specm 24 Conscious Sedation Init Hosp-da E&m Mod Severity 4 Advance Directives Directive Yes / No Effective Date File Name No Information Encounters Encounter Description Practice Location Reason(s) For Visit Diagnoses Date Provider Providers Copied on Encounter Init Hosp-da E&m Mod Severity [facility], [address] [address], [place], [place], [id number], [place] tel:[phone] [facility] No Information [address]ady Miller. [address] [place] [address], [id number], [place]. tel:[phone] Referring Provider: Paul Flores, [address] [place] [address], [address]. tel:[phone] Subsqt Hosp-da E&m Minr Compl [facility], [address] [address], [place], [place], [id number], [place] tel:[phone] [facility] No Information 4 Darren CANO Mackenzie. [address] [place] [address], [id number], [place]. tel:[phone] Referring Provider: Mackenzie Felix, [address] [place] [address], [address]. [phone] [facility], [address] [address], [place], [place], [id number], [phone] [facility] No Information 4 Janette Hoyt. [address] [place] [address], [id number], [place]. tel:[phone] Referring Provider: Lai Kelly, [address] [place] [address], [address]. tel:[phone] [facility], [facility] [address], [place], [place], [id number], [phone] [facility] No Information 4 Mark Waldrop. [address] [place] [address], [id number], [place]. tel:[phone] Referring Provider: Benjie Flores MD, [address] [place] [address], [address]. tel:[phone] [facility], [address] [address], [place], [place], [id number], [phone] [facility] No Information 4 Tiffany Copeland. [address] [place] [address], [id number], [place]. tel:[phone] Referring Provider: Preet Maxewll, [address], [place], [address]. tel:[phone] Family History Family Member Type Diagnosis Age At Onset No Information Payers Payer name Insurance type Covered constitution party ID Issac rossi(s) Medicare NGS MB [id number] [place] Medical Assistance [id number] Social History Type Description Quantity Date Captured Comments Sex Male Smoking Status No Information Chief Complaint And Reason For Visit No Information Reason For Referral Reason For Referral No Information History Of Present Illness Encounter Date Complaint History Of Prese nt Illness No Information Functional Status Date Functional Assessmen t No Information Instructions Date Instruction Additional Infor mation No Information Assessments Type Assessment Date No Information Patient Care Teams Name Effective Dates (start - stop) Status Members No Information
--- OUTSIDE RECORDS SUMMARY | 2024-07-15 14:27 | XMS_ITS | Encounter Summary ---
Author Organization [facility] Address [address] [place] [address] Phone Care Team Providers Care Overhead Crane Truck Loader Name Role Phone Preet Huff MD Primary Care Provider Reason for Visit * Reason Comments Med Refill Encounter Details Date Type Department Care Team (Late st Contact Info) Description 03/23/2021 Refill [facility] [address] [facility] [address] [place], [place] [id number] María Elena Styles PA [address] [facility] [address] [facility] [address] [place] [address] Social History Tobacco Use Types Packs/Day Years [...] on filedocumented in this encounter Care Teams Overhead Crane Truck Loader Relationship Specialty Start Date End Date Preet Huff MD [address] [place] [address] PCP - General 10/31/19 documented as of this encounter
--- OUTSIDE RECORDS SUMMARY | 2024-07-15 14:27 | XMS_ITS | Encounter Summary ---
Author Organization [facility] Address [address] [place] [address] Phone Care Team Providers Care Vehicle Leasing And Rental Manager Name Role Phone Preet Huff MD Primary Care Provider [phone] Reason for Visit * Reason Comments Med Refill Encounter Details Date Type Department Care Team (Late st Contact Info) Description 02/12/2021 Refill [facility] [address] [facility] [address] [place], [place] [address] María Elena Styles PA [address] [place] [address] Social History Tobacco Use Types Packs/Day Years Used Date Smoking Tobacco: Never Assessed Sex and Gender Information Value Date Recorded Sex Assigned at Not on file Gender Identity Not on file Sexual Orientation Not on file documented as of this encounter Plan of Treatment Not on file documented as of this encounter Visit Diagnoses Not on filedocumented in this encounter Care Teams Vehicle Leasing And Rental Manager Relationship Specialty Start Date End Date Preet Huff MD [address] [place] [address] PCP - General 10/31/19 documented as of this encounter
--- OUTSIDE RECORDS SUMMARY | 2024-07-15 14:27 | XMS_ITS | Clinical Summary ---
Author Organization [facility] Address [address] [place] [address] Phone Care Team Providers Care [employer] Worker Name Role Phone Preet Huff MD Primary Care Provider [phone] Medications Medication Sig Dispensed Refills Start Date End Date Status cholecalciferol (VITAMIN D-3) 1000 units tablet 1 tab qd 04/02/2015 Active B Complex Vitamins (VITAMIN B COMPLEX) tablet 1 tab po daily 12/08/2012 Act bill bisacodyl (DULCOLAX) 5 MG EC tablet 2 tabs po bid 04/02/2015 Active B Shnpebm-T-Jsuih Acid (RENAL) 1 MG capsule 1 cap [...] 1982 Influenza Vaccine (#1) 2024 Care Teams [employer] Worker Relationship Specialty Start Date End Date Preet Huff MD [address] [place] [address] PCP - General 10/31/19
--- OUTSIDE RECORDS SUMMARY | 2024-07-15 14:27 | XMS_ITS | Clinical Summary ---
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 Black stool 03/02/2024 ESRD on dialysis 02/24/2024 Altered mental status, unspe cified altered mental status type 02/24/2024 Gastrointestinal hemorrhage, unspecified gastrointestinal hemorrhage type 02/24/2024 Anemia, unspecified type 02/24/2024 Foot ulcer 01/23/2018 Foot ulcer, left 12/16/2017 Steal syndrome of dialysis vascular access 12/16 Postoperative observation 03/05/2016 History of staph septicemia 12/20/2015 Fever and chills 12/16/2015 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 Problem with dialysis access 08/14/2015 Fever 08/09/2015 ESRD (end stage renal disease) 06/04/2014 Post-op pain 06/20/2013 Clotted renal dialysis arteriovenous graft 06/19 Clotted renal dialysis AV graft 06/19/2013 End stage renal disease 08/10/2012 Fistula 08/05/2012 Resolved Problems Problem Noted Date Diagnosed Date Resolved Date Clotted dialysis access 08/03/20120 10/2011 ESRD (end stage renal disease) on dialysis 05/03/2012 08/01/2012 Hypertension 08/01/2012 A-V fistula 08/01/2012 Encounters Date Type Department Care Team Description 07/12/2024 12:18 AM CDT - 07/12/2024 7:24 AM CDT Emergency [facility] Emergency Dept [address] [place] [address] Avery Fernando MD Richardson, Elizabeth, MD Transient hypotension; ESRD (end stage renal disease) on dialysis (H); Supratherapeutic INR Discharge Disposition: Home or Self Care 07/12/2024 Travel 05/23/2024 6:02 PM CDT Anesthesia Event [facility] [address] [place] [address] Tom Castro MD Larson, Matthew Ray, MD 05/23/2024 6:00 PM CDT - 05/23/2024 7:00 PM CDT Surgery [facility] [address] [place] [address] Lizandro Barron MD Incision and drainage, debridement of scrotal skin and subcutaneous tissues for necrotizing soft tissue infection of the scrotum 05/23/2024 1:14 PM CDT - 05/30/2024 5:21 PM CDT Hospital Encounter [place] [address] [facility] [address] [place] [address] Vi Hernandez DO Cabrera, Jesus F, MD Supratherapeutic INR; Mita's gangrene of scrotum (H) Discharge Disposition: Home or Self Care 05/23/2024 [...] in an abandoned building, in an overnight [facility]cfp, or couch-surfing.) Patient unable to answer 05/30/2024 [...] file Gender Identity Male 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 Sexual Orientation Not on file Last Filed Vital Signs Vital Sign Reading Time Taken Comments Blood Pressure 131/66 07/12/2024 6:50 AM CDT Pulse 67 07/12/2024 6:50 AM CDT Temperature 36.8 ??C (98.2 ??F) 07/12/2024 1:00 AM CD T Respiratory Rate 18 07/12/2024 12:24 AM CDT Oxygen Saturation 95% 07/12/2024 6:50 AM CDT Inhaled Oxygen Concentration - - Weight 86.2 kg (190 lb) 07/12/2024 6:00 AM CDT Height 170.2 cm (5' 7) 07/12/2024 6:00 AM CDT Body Mass Index 29.76 07/12/2024 6:00 AM CDT Plan of Treatment Health Maintenance [...] , 08/05/2021, 07/11/2020, Additional history exists BMP 10/12/2024 07/12/2024, 05/11, 05/29/2024, Additional history exists HEMOGLOBIN 01/10/2025 07/12/2024, 05/11, 05/29/2024, Additional history exists FIT 02/23/2025 02/24/2024, 06/14/2014 GLUCOSE 07/12/2027 07/12/2024, 12/2023, 05/30/2024, Additional history exists COLONOSCOPY 03/08/2034 03/08/2024, 02/09, 03/08/2024, Additional history exists COLORECTAL CANCER SCREENING 03/08/2034 HEPATITIS C SCREENING Completed 01/04/2022 PHOSPHORUS Completed 03/12/2024, 11/2023, 03/10/2024, Additional history exists ALK PHOS Completed 07/12/2024, 05/10, 05/23/2024, Additional history exists HPV IMMUNIZATION Aged Out No longer e ligible based on patient's age to complete this topic MENINGITIS IMMUNIZATION Aged Out No l onger eligible based on patient's age to complete this topic RSV MONOCLONAL ANTIBODY Aged Out No l onger eligible based on patient's age to complete this topic Medical Devices Implanted Type Area Electrical Designer Device Identifier Shelf Expiration Date Model / Serial / Lot Graft Patch Vasc Xenosure Biologic 0.8x08cm 0.8p8 Implanted:Qty: 1 on 12/16/2017 by Jaxon Saravia MD at [facility] Bone/Tis rocco/Biol ogic Left: Iliac/Fem orals [employer] IN 06/06/2023 0.8P8 / / [id number] Graft Pericardium 8x0.8cm Vascu-Guard Implanted:Qty: 1 on 10/20/2011 at [facility] Right: Arm [employer] 01/16/2016 [id number] / / [id number] Femoral Popliteal Artery Implanted:Qty: 1 on 05/03/2012 by Jaxon Saravia MD at [facility] Right: Groin 12/07/2021 [id number] / [id number] / Description:CADAVER FEMORAL ARTERY RINSED IN A AND B SOLUTION: A SOLUTION LOT #[id number] EXPIRATION DATE 01/09/2014 B SOLUTION LOT #[id number] EXPIRATION DATE 11/15/2013 Graft Propaten Taper [id number] Implanted:Qty: 1 on 08/09/2012 by Jaxon Saravia MD at [facility] Right: Leg 10/24/2015 [id number] / / [id number] Graft Propaten Taper [id number] Implanted:Qty: 1 on 06/20/2013 by Jaxon Saravia MD at [facility] Left: Groin [employer] 02/07/2017 [id number] / / [id number] Graft Pericardium 8x0.8cm Vascu-Guard Implanted:Qty: 1 on 05/08/2014 by Jaxon Saravia MD at [facility] Left: Leg [employer] 11/26/2018 [id number] / PN# [id number] / [id number] Procol Vascular Bioprosthesis Implanted:Qty: 1 on 07/02/2015 by Jaxon Saravia MD at [facility] Left: Groin 12/16/2018 [id number] -[id number] / [id number] / Procol Vascular Bioprosthesis Implanted:Qty: 1 on 08/13/2015 by Jaxon Saravia MD at [facility] Left: Groin 12/16/2018 [id number] -[id number] / [id number] / Graft Vasc Bioprosthesis Procol [id number] Implanted:Qty: 1 on 03/05/2016 by Jaxon Saravia MD at [facility] Left: Leg [employer] IN 02/03/2019 [id number] -[id number] / [id number] / Procedures Procedure Name Priority Date/Time Associated Diagnosis Comments TROPONIN T, HIGH SENSITIVITY STAT 07/12/2024 4:23 AM CDT XR CHEST 2 VIEWS STAT 07/12/2024 3:15 AM CDT CTA HEAD NECK W CONTRAST STAT 07/12/2024 1:[address] HEAD W/O CONTRAST STAT 07/12/2024 1:25 AM CDT ABO/RH TYPE AND SCREEN STAT 1:14 AM CDT CBC WITH PLATELETS & DIFFERENTIAL STAT 07/12/2024 1:14 AM CDT BLOOD CULTURE STAT 07/12/2024 1:14 AM CDT TYPE AND SCREEN, ADULT STAT 1:14 AM CDT EXTRA RED TOP TUBE STAT 07/12/2024 1: 14 AM CDT CBC WITH PLATELETS AND DIFFERENTIAL STAT 07/12/2024 1:14 AM CDT INR STAT 07/12/2024 1:14 AM CDT HEPATIC FUNCTION PANEL STAT 1:14 AM CDT LACTIC ACID WHOLE BLOOD STAT 07/12/2024 1:14 AM CDT EXTRA TUBE STAT 07/12/2024 1:14 AM CDT TROPONIN T, HIGH SENSITIVITY STAT 07/12/2024 1:14 AM CDT BASIC METABOLIC PANEL STAT 07/12/2024 1:14 AM CDT GLUCOSE BY METER STAT 07/12/2024 1:13 AM CDT EKG 12-LEAD, TRACING ONLY STAT 07/12/2024 12:24 AM CDT GLUCOSE BY METER Routine 05/30/2024 1:40 PM [...] CDT Supratherapeutic INR Mita's gangrene of scrotum (H) GLUCOSE BY METER Routine 05/23/2024 5:41 PM [...] CDT LIPID PROFILE STAT 12/07/2017 12:34 PM 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 Troponin T, High Sensitivity 41(H) <=22 ng/L 07/12/2024 4:44 AM CDT LABORATORY Comment: Either a High Sensitivity Troponin T baseline (0 hours) value = 100 ng/L, or an increase in High Sensitivity Troponin T = 7 ng/L at 2 hours compared to 0 hours (2-0 hours), suggests myocardial injury, and urgent clinical attention is required. ?? If the 2-0 hours increase is <7 ng/L, a High Sensitivity Troponin T result above gender-specific reference ranges warrants further evaluation. Recommendations for further evaluation include correlation with clinical decision-making tool (e.g., HEART), a 3rd High Sensitivity Troponin T test 2 hours after the 2nd (a 20% change from baseline would represent concern), admission for observation, close PCC/cardiology follow-up, or urgent outpatient provocative testing. Blood BLOOD SPECIMEN / Unknown Venipuncture / Unknown 07/12/2024 4:23 AM CDT 07/12/2024 4:25 AM CDT Avery Fernando MD LAB - BLOOD ORDERABL ES LABORATORY [facility] [address] [facility] (1st floor, no room number) [place] [address] * XR Chest 2 Views (07/12/2024 3:15 AM CDT) Anatomical Region Laterality Modality Chest Digital Radiogra phy 07/12/2024 3:15 AM CDT Impressions 07/12/2024 3:18 AM CDT IMPRESSION: Low lung volumes but the lungs appear clear. Normal heart size and pulmonary vascularity. No pleural fluid or pneumothorax. Narrative 07/12/2024 3:18 AM CDT EXAM: XR CHEST 2 VIEWS LOCATION: [facility] DATE: 07/12/2024 INDICATION: ams COMPARISON: 03/11/2024. Procedure Note Pavan Sanon MD - 07/12/2024 EXAM: XR CHEST 2 VIEWS LOCATION: [facility] DATE: 07/12/2024 INDICATION: ams COMPARISON: 03/11/2024. IMPRESSION: Low lung volumes but the lungs appear clear. Normal heart sizeand pulmonary vascularity. No pleural fluid or pneumothorax. Avery Fernando MD IMG DIAGNOSTIC IMAGI NG ORDERABLES * CTA Head Neck with Contrast (07/12/2024 1:29 AM CDT) Anatomical Region Laterality Modality Head, SUBRAD CT NEURO, SUBRA D CT NEURO, UMP CT NEURO, RAD CT Computed Tomography 07/12/2024 1:29 AM CDT Impressions 07/12/2024 1:51 AM CDT IMPRESSION: HEAD CT: 1. ??No CT finding of a mass, hemorrhage or focal area suggestive of acute infarct. 2. ??Mild age-related changes. HEAD CTA: 1. ??No discrete vessel occlusion, significant stenosis, aneurysm or high flow vascular malformation involving the arteries of the knik of [place]. NECK CTA: 1. ??Normal configuration of the great vessels off the aortic arch with no significant stenosis of their origins. 2. ??Approximately 40% stenosis of the origin of the right internal carotid artery by NASCET criteria. 3. ??Approximately 60% stenosis of the origin of the left internal carotid artery by NASCET criteria along with a tandem lesion of approximately 50% stenosis approximately 2 cm from its origin. 4. ??No radiographic evidence of dissection. CT PERFUSION: 1. ??Cerebral perfusion does appear fairly symmetric with no discrete deficits in cerebral blood flow or blood volume. There is a delay in transit time to the right cerebellar hemisphere which could be artifactual in nature due to the color maps being distorted. If clinically concerned recommend MRI brain for further evaluation. Head CT findings were communicated by phone to Dr. Fernando at 1:30 AM. CTA results were communicated by phone to Dr. Fernando at 1:49 am on 07/12/2024. Narrative 07/12/2024 1:51 AM CDT EXAM: CT HEAD W/O CONTRAST, CTA HEAD NECK W CONTRAST LOCATION: [facility] DATE: 07/12/2024 INDICATION: ams and weakness. COMPARISON: 03/26/2024. TECHNIQUE: Head and neck CT angiogram with IV contrast. Noncontrast head CT followed by axial helical CT images of the head and neck vessels obtained during the arterial phase of intravenous contrast administration. Axial 2D reconstructed images and multiplanar 3D MIP reconstructed images of the head and neck vessels were performed by the technologist. Additional CT cerebral perfusion was performed utilizing a second contrast bolus. Perfusion data were post processed with generation of standard perfusion maps and estimation of ischemic/infarcted volumes utilizing standard threshold values. Dose reduction techniques were used. All stenosis measurements made according to NASCET criteria unless otherwise specified. CONTRAST: 67 mL Isovue 370 FINDINGS: NONCONTRAST HEAD CT: INTRACRANIAL CONTENTS: No intracranial hemorrhage, extraaxial collection, or mass effect. ??No CT evidence of acute infarct. There is scattered low-attenuation within the periventricular and subcortical white matter mild diffuse small vessel ischemic disease. The ventricular system, basal cisterns and the cortical sulci are consistent with mild diffuse volume loss. VISUALIZED ORBITS/SINUSES/MASTOIDS: No intraorbital abnormality. No paranasal sinus mucosal disease. No middle ear or mastoid effusion. BONES/SOFT TISSUES: No acute abnormality. HEAD CTA: ANTERIOR CIRCULATION: No stenosis/occlusion, aneurysm, or high flow vascular malformation. There is a patent anterior communicating artery and patent bilateral posterior communicating arteries. POSTERIOR CIRCULATION: No stenosis/occlusion, aneurysm, or high flow vascular malformation. Left vertebral artery dominant but both vertebral arteries connect up to the basilar artery. DURAL VENOUS SINUSES: Expected enhancement of the major dural venous sinuses. NECK CTA: There is diffuse vascular calcification of the carotid arteries bilaterally. RIGHT CAROTID: There is approximately 40% stenosis of the origin of the right internal carotid artery by NASCET criteria. This is best visualized on axial source image #209. LEFT CAROTID: There is approximately 60% stenosis of the origin of the left internal carotid artery by NASCET criteria. This is best visualized on axial source image #207. There is also approximately 50% stenosis of the left internal carotid artery approximately 2 cm from its origin. VERTEBRAL ARTERIES: No focal stenosis or dissection. Left vertebral artery dominant but both vertebral arteries are patent throughout the neck region. AORTIC ARCH: Classic aortic arch anatomy with no significant stenosis at the origin of the great vessels. NONVASCULAR STRUCTURES: Lung apices are clear. There are no significant degenerative changes of the the cervical spine. CT PERFUSION: PERFUSION MAPS: Fairly symmetrical cerebral perfusion. No focal deficits in cerebral blood flow or volume to suggest ischemia/oligemia. The color perfusion maps have the appearance of the artifactual in nature. There is no obvious large focal deficits visualized. RAPID ANALYSIS: CBF<30%: 0 ml Tmax>6sec: 7 ml Mismatch volume: 7 ml Mismatch ratio: infinite Procedure Note Alejandra Infante MD - 07/12/2024 EXAM: CT HEAD W/O CONTRAST, CTA HEAD NECK W CONTRAST LOCATION: [facility] DATE: 07/12/2024 INDICATION: ams and weakness. COMPARISON: 03/26/2024. TECHNIQUE: Head and neck CT angiogram with IV contrast. Noncontrast headCT followed by axial helical CT images of the head and neck vesselsobtained during the arterial phase of intravenous contrast administration.Axial 2D reconstructed images and multiplanar 3D MIP reconstructed images of the head and neck vessels wereperformed by the technologist. Additional CT cerebral perfusion wasperformed utilizing a second contrast bolus. Perfusion data were postprocessed with generation of standard perfusion maps and estimation of ischemic/infarcted volumes utilizingstandard threshold values. Dose reduction techniques were used. Allstenosis measurements made according to NASCET criteria unless otherwisespecified. CONTRAST: 67 mL Isovue 370 FINDINGS: NONCONTRAST HEAD CT: INTRACRANIAL CONTENTS: No intracranial hemorrhage, extraaxial collection,or mass effect. No CT evidence of acute infarct. There is scatteredlow-attenuation within the periventricular and subcortical white mattermild diffuse small vessel ischemic disease. The ventricular system, basal cisterns and the cortical sulci areconsistent with mild diffuse volume loss. VISUALIZED ORBITS/SINUSES/MASTOIDS: No intraorbital abnormality. Noparanasal sinus mucosal disease. No middle ear or mastoid effusion. BONES/SOFT TISSUES: No acute abnormality. HEAD CTA: ANTERIOR CIRCULATION: No stenosis/occlusion, aneurysm, or high flowvascular malformation. There is a patent anterior communicating artery andpatent bilateral posterior communicating arteries. POSTERIOR CIRCULATION: No stenosis/occlusion, aneurysm, or high flowvascular malformation. Left vertebral artery dominant but both vertebralarteries connect up to the basilar artery. DURAL VENOUS SINUSES: Expected enhancement of the major dural venoussinuses. NECK CTA: There is diffuse vascular calcification of the carotid arteriesbilaterally. RIGHT CAROTID: There is approximately 40% stenosis of the origin of theright internal carotid artery by NASCET criteria. This is best visualizedon axial source image #209. LEFT CAROTID: There is approximately 60% stenosis of the origin of theleft internal carotid artery by NASCET criteria. This is best visualizedon axial source image #207. There is also approximately 50% stenosis ofthe left internal carotid artery approximately 2 cm from its origin. VERTEBRAL ARTERIES: No focal stenosis or dissection. Left vertebral arterydominant but both vertebral arteries are patent throughout the neckregion. AORTIC ARCH: Classic aortic arch anatomy with no significant stenosis atthe origin of the great vessels. NONVASCULAR STRUCTURES: Lung apices are clear. There are no significantdegenerative changes of the the cervical spine. CT PERFUSION: PERFUSION MAPS: Fairly symmetrical cerebral perfusion. No focal deficitsin cerebral blood flow or volume to suggest ischemia/oligemia. The colorperfusion maps have the appearance of the artifactual in nature. There isno obvious large focal deficits visualized. RAPID ANALYSIS: CBF<30%: 0 ml Tmax>6sec: 7 ml Mismatch volume: 7 ml Mismatch ratio: infinite IMPRESSION: HEAD CT: 1. No CT finding of a mass, hemorrhage or focal area suggestive of acuteinfarct. 2. Mild age-related changes. HEAD CTA: 1. No discrete vessel occlusion, significant stenosis, aneurysm or highflow vascular malformation involving the arteries of the [place] of[place]. NECK CTA: 1. Normal configuration of the great vessels off the aortic arch with nosignificant stenosis of their origins. 2. Approximately 40% stenosis of the origin of the right internal carotidartery by NASCET criteria. 3. Approximately 60% stenosis of the origin of the left internal carotidartery by NASCET criteria along with a tandem lesion of approximately 50%stenosis approximately 2 cm from its origin. 4. No radiographic evidence of dissection. CT PERFUSION: 1. Cerebral perfusion does appear fairly symmetric with no discretedeficits in cerebral blood flow or blood volume. There is a delay intransit time to the right cerebellar hemisphere which could be artifactualin nature due to the color maps being distorted. If clinically concerned recommend MRI brain for furtherevaluation. Head CT findings were communicated by phone to Dr. Fernando at 1:30 AM. CTAresults were communicated by phone to Dr. Fernando at 1:49 am on 07/12/2024. Avery Fernando MD IMG CT ORDERABLES * CT Head w/o Contrast (07/12/2024 1:25 AM CDT) Anatomical Region Laterality Modality Head, SUBRAD CT NEURO, SUBRA D CT NEURO, UMP CT NEURO, RAD CT Computed Tomography 07/12/2024 1:25 AM CDT Impressions 07/12/2024 1:51 AM CDT IMPRESSION: HEAD CT: 1. ??No CT finding of a mass, hemorrhage or focal area suggestive of acute infarct. 2. ??Mild age-related changes. HEAD CTA: 1. ??No discrete vessel occlusion, significant stenosis, aneurysm or high flow vascular malformation involving the arteries of the knik of [place]. NECK CTA: 1. ??Normal configuration of the great vessels off the aortic arch with no significant stenosis of their origins. 2. ??Approximately 40% stenosis of the origin of the right internal carotid artery by NASCET criteria. 3. ??Approximately 60% stenosis of the origin of the left internal carotid artery by NASCET criteria along with a tandem lesion of approximately 50% stenosis approximately 2 cm from its origin. 4. ??No radiographic evidence of dissection. CT PERFUSION: 1. ??Cerebral perfusion does appear fairly symmetric with no discrete deficits in cerebral blood flow or blood volume. There is a delay in transit time to the right cerebellar hemisphere which could be artifactual in nature due to the color maps being distorted. If clinically concerned recommend MRI brain for further evaluation. Head CT findings were communicated by phone to Dr. Fernando at 1:30 AM. CTA results were communicated by phone to Dr. Fernando at 1:49 am on 07/12/2024. Narrative 07/12/2024 1:51 AM CDT EXAM: CT HEAD W/O CONTRAST, CTA HEAD NECK W CONTRAST LOCATION: [facility] DATE: 07/12/2024 INDICATION: ams and weakness. COMPARISON: 03/26/2024. TECHNIQUE: Head and neck CT angiogram with IV contrast. Noncontrast head CT followed by axial helical CT images of the head and neck vessels obtained during the arterial phase of intravenous contrast administration. Axial 2D reconstructed images and multiplanar 3D MIP reconstructed images of the head and neck vessels were performed by the technologist. Additional CT cerebral perfusion was performed utilizing a second contrast bolus. Perfusion data were post processed with generation of standard perfusion maps and estimation of ischemic/infarcted volumes utilizing standard threshold values. Dose reduction techniques were used. All stenosis measurements made according to NASCET criteria unless otherwise specified. CONTRAST: 67 mL Isovue 370 FINDINGS: NONCONTRAST HEAD CT: INTRACRANIAL CONTENTS: No intracranial hemorrhage, extraaxial collection, or mass effect. ??No CT evidence of acute infarct. There is scattered low-attenuation within the periventricular and subcortical white matter mild diffuse small vessel ischemic disease. The ventricular system, basal cisterns and the cortical sulci are consistent with mild diffuse volume loss. VISUALIZED ORBITS/SINUSES/MASTOIDS: No intraorbital abnormality. No paranasal sinus mucosal disease. No middle ear or mastoid effusion. BONES/SOFT TISSUES: No acute abnormality. HEAD CTA: ANTERIOR CIRCULATION: No stenosis/occlusion, aneurysm, or high flow vascular malformation. There is a patent anterior communicating artery and patent bilateral posterior communicating arteries. POSTERIOR CIRCULATION: No stenosis/occlusion, aneurysm, or high flow vascular malformation. Left vertebral artery dominant but both vertebral arteries connect up to the basilar artery. DURAL VENOUS SINUSES: Expected enhancement of the major dural venous sinuses. NECK CTA: There is diffuse vascular calcification of the carotid arteries bilaterally. RIGHT CAROTID: There is approximately 40% stenosis of the origin of the right internal carotid artery by NASCET criteria. This is best visualized on axial source image #209. LEFT CAROTID: There is approximately 60% stenosis of the origin of the left internal carotid artery by NASCET criteria. This is best visualized on axial source image #207. There is also approximately 50% stenosis of the left internal carotid artery approximately 2 cm from its origin. VERTEBRAL ARTERIES: No focal stenosis or dissection. Left vertebral artery dominant but both vertebral arteries are patent throughout the neck region. AORTIC ARCH: Classic aortic arch anatomy with no significant stenosis at the origin of the great vessels. NONVASCULAR STRUCTURES: Lung apices are clear. There are no significant degenerative changes of the the cervical spine. CT PERFUSION: PERFUSION MAPS: Fairly symmetrical cerebral perfusion. No focal deficits in cerebral blood flow or volume to suggest ischemia/oligemia. The color perfusion maps have the appearance of the artifactual in nature. There is no obvious large focal deficits visualized. RAPID ANALYSIS: CBF<30%: 0 ml Tmax>6sec: 7 ml Mismatch volume: 7 ml Mismatch ratio: infinite Procedure Note Alejandra Infante MD - 07/12/2024 EXAM: CT HEAD W/O CONTRAST, CTA HEAD NECK W CONTRAST LOCATION: [facility] DATE: 07/12/2024 INDICATION: ams and weakness. COMPARISON: 03/26/2024. TECHNIQUE: Head and neck CT angiogram with IV contrast. Noncontrast headCT followed by axial helical CT images of the head and neck vesselsobtained during the arterial phase of intravenous contrast administration.Axial 2D reconstructed images and multiplanar 3D MIP reconstructed images of the head and neck vessels wereperformed by the technologist. Additional CT cerebral perfusion wasperformed utilizing a second contrast bolus. Perfusion data were postprocessed with generation of standard perfusion maps and estimation of ischemic/infarcted volumes utilizingstandard threshold values. Dose reduction techniques were used. Allstenosis measurements made according to NASCET criteria unless otherwisespecified. CONTRAST: 67 mL Isovue 370 FINDINGS: NONCONTRAST HEAD CT: INTRACRANIAL CONTENTS: No intracranial hemorrhage, extraaxial collection,or mass effect. No CT evidence of acute infarct. There is scatteredlow-attenuation within the periventricular and subcortical white mattermild diffuse small vessel ischemic disease. The ventricular system, basal cisterns and the cortical sulci areconsistent with mild diffuse volume loss. VISUALIZED ORBITS/SINUSES/MASTOIDS: No intraorbital abnormality. Noparanasal sinus mucosal disease. No middle ear or mastoid effusion. BONES/SOFT TISSUES: No acute abnormality. HEAD CTA: ANTERIOR CIRCULATION: No stenosis/occlusion, aneurysm, or high flowvascular malformation. There is a patent anterior communicating artery andpatent bilateral posterior communicating arteries. POSTERIOR CIRCULATION: No stenosis/occlusion, aneurysm, or high flowvascular malformation. Left vertebral artery dominant but both vertebralarteries connect up to the basilar artery. DURAL VENOUS SINUSES: Expected enhancement of the major dural venoussinuses. NECK CTA: There is diffuse vascular calcification of the carotid arteriesbilaterally. RIGHT CAROTID: There is approximately 40% stenosis of the origin of theright internal carotid artery by NASCET criteria. This is best visualizedon axial source image #209. LEFT CAROTID: There is approximately 60% stenosis of the origin of theleft internal carotid artery by NASCET criteria. This is best visualizedon axial source image #207. There is also approximately 50% stenosis ofthe left internal carotid artery approximately 2 cm from its origin. VERTEBRAL ARTERIES: No focal stenosis or dissection. Left vertebral arterydominant but both vertebral arteries are patent throughout the neckregion. AORTIC ARCH: Classic aortic arch anatomy with no significant stenosis atthe origin of the great vessels. NONVASCULAR STRUCTURES: Lung apices are clear. There are no significantdegenerative changes of the the cervical spine. CT PERFUSION: PERFUSION MAPS: Fairly symmetrical cerebral perfusion. No focal deficitsin cerebral blood flow or volume to suggest ischemia/oligemia. The colorperfusion maps have the appearance of the artifactual in nature. There isno obvious large focal deficits visualized. RAPID ANALYSIS: CBF<30%: 0 ml Tmax>6sec: 7 ml Mismatch volume: 7 ml Mismatch ratio: infinite IMPRESSION: HEAD CT: 1. No CT finding of a mass, hemorrhage or focal area suggestive of acuteinfarct. 2. Mild age-related changes. HEAD CTA: 1. No discrete vessel occlusion, significant stenosis, aneurysm or highflow vascular malformation involving the arteries of the knik of[place]. NECK CTA: 1. Normal configuration of the great vessels off the aortic arch with nosignificant stenosis of their origins. 2. Approximately 40% stenosis of the origin of the right internal carotidartery by NASCET criteria. 3. Approximately 60% stenosis of the origin of the left internal carotidartery by NASCET criteria along with a tandem lesion of approximately 50%stenosis approximately 2 cm from its origin. 4. No radiographic evidence of dissection. CT PERFUSION: 1. Cerebral perfusion does appear fairly symmetric with no discretedeficits in cerebral blood flow or blood volume. There is a delay intransit time to the right cerebellar hemisphere which could be artifactualin nature due to the color maps being distorted. If clinically concerned recommend MRI brain for furtherevaluation. Head CT findings were communicated by phone to Dr. Fernando at 1:30 AM. CTAresults were communicated by phone to Dr. Fernando at 1:49 am on 07/12/2024. Avery Fernando MD IMG CT ORDERABLES * Extra Red Top Tube (07/12/2024 1:14 AM CDT) Pathologist [facility] Hold Specimen JI 07/12/2024 2:31 AM CDT [facility] Blood BLOOD SPECIMEN / Unknown Venipuncture / Unknown 07/12/2024 1:14 AM CDT 07/12/2024 1:23 AM CDT Avery Fernando MD LAB - BLOOD ORDERABL ES [facility] LABORATORY [facility] Lab [address] [facility] Lab (1st floor, no room number) [place] [address] * (ABNORMAL) CBC with platelets and differential (07/12/2024 1:14 AM CDT) Only the most recent of4 resultswithin the time period is included. Pathologist [facility] WBC Count 3.1(L) 4.0 - 11.0 10e3/uL 07/12/2024 1:26 AM CDT [facility] RBC Count 3.62(L) 4.40 - 5.90 10e6/uL 07/12/2024 1:26 AM CDT [facility] Hemoglobin 9.9(L) 13.3 - 17.7 g/dL 07/12/2024 1:26 AM CDT [facility] Hematocrit 33.1(L) 40.0 - 53.0 % 07/12/2024 1:26 AM CDT [facility] MCV 91 78 - 100 fL 07/12/2024 1:26 AM CDT [facility] MCH 27.3 26.5 - 33.0 pg 07/12/2024 1:26 AM CDT [facility] MCHC 29.9(L) 31.5 - 36.5 g/dL 07/12/2024 1:26 AM CDT [facility] RDW 19.2(H) 10.0 - 15.0 % 07/12/2024 1:26 AM CDT [facility] Platelet Count 133(L) 150 - 450 10e3/uL 07/12/2024 1:26 AM CDT [facility] % Neutrophils 59 % 07/12/2024 1:26 AM CDT [facility] % Lymphocytes 18 % 07/12/2024 1:26 AM CDT [facility] % Monocytes 16 % 07/12/2024 1:26 AM CDT [facility] % Eosinophils 6 % 07/12/2024 1:26 AM CDT [facility] % Basophils 0 % 07/12/2024 1:26 AM CDT [facility] % Immature Granulocytes 0 % 07/12/2024 1:26 AM CDT [facility] NRBCs per 100 WBC 0 <1 /100 024 1:26 AM CDT [facility] Absolute Neutrophils 1.9 1.6 - 8.3 10e3/uL 07/12/2024 1:26 AM CDT [facility] Absolute Lymphocytes 0.6(L) 0.8 - 5.3 10e3/uL 07/12/2024 1:26 AM CDT [facility] Absolute Monocytes 0.5 0.0 - 1.3 10e3/uL 07/12/2024 1:26 AM CDT [facility] Absolute Eosinophils 0.2 0.0 - 0.7 10e3/uL 07/12/2024 1:26 AM CDT [facility] Absolute Basophils 0.0 0.0 - 0.2 10e3/uL 07/12/2024 1:26 AM CDT [facility] Absolute Immature Granulocytes 0.0 <=0.4 10e3/uL 07/12/2024 1:26 AM CDT [facility] Absolute NRBCs 0.0 10e3/uL 07/12/2024 1:26 AM CDT [facility] Blood BLOOD SPECIMEN / Unknown Venipuncture / Unknown 07/12/2024 1:14 AM CDT 07/12/2024 1:23 AM CDT Avery Fernando MD LAB - BLOOD ORDERABL ES [facility] LABORATORY [facility] Lab [address] Lab (1st floor, no room number) [place] [phone] [place] [address] * Adult Type and Screen (07/12/2024 1:14 AM CDT) Only the most recent of2 resultswithin the time period is included. ABO/RH(D) O POS 07/12/2024 1:01 AM CDT RH BLOOD BANK Antibody Screen Negative Negative 07/12/2024 1:01 AM CDT RH BLOOD BANK SPECIMEN EXPIRATION DATE [id number] 07/12/2024 1:01 AM CDT RH BLOOD BANK Blood BLOOD SPECIMEN / Unknown Venipuncture / Unknown 07/12/2024 1:14 AM CDT 07/12/2024 1:23 AM CDT Avery Fernando MD LAB - BLOOD BANK SHANNON T ORDER Performing Organization Address City/[facility]/ZIP Co de Phone Number BLOOD BANK [address] [place] [phone] [place] [address] * (ABNORMAL) INR (07/12/2024 1:14 AM CDT) Only the most recent of11 resultswithin the time period is included. INR 4.68(H) 0.85 - 1.15 07/12/2024 1:49 AM CDT [facility] LAB[facility] Blood BLOOD SPECIMEN / Unknown Venipuncture / Unknown 07/12/2024 1:14 AM CDT 07/12/2024 1:23 AM CDT Avery Fernando MD LAB - BLOOD ORDERABL ES LABORATORY [facility] Lab [address] [facility] Lab (1st floor, no room number) [place] [phone] [place] [address] * Lactic acid whole blood (07/12/2024 1:14 AM CDT) Only the most recent of2 resultswithin the time period is included. Lactic Acid 0.8 0.7 - 2.0 mmol/L 07/12/2024 1:27 AM CDT [facility] LAB[facility] Blood BLOOD SPECIMEN / Unknown Venipuncture / Unknown 07/12/2024 1:14 AM CDT 07/12/2024 1:23 AM CDT Avery Fernando MD LAB - BLOOD ORDERABL ES Performing Organization Address [facility]/ZIP Co de Phone Number [facility] Acute Care Lab [address] Lab (1st floor, no room number) [address] * Hepatic function panel (07/12/2024 1:14 AM CDT) Protein Total 7.3 6.4 - 8.3 g/dL 07/12/2024 1:43 AM CDT [facility] LABORATORY Albumin 3.8 3.5 - 5.2 g/dL 07/12/2024 1:43 AM CDT LABORATORY Bilirubin Total 0.4 <=1.2 mg/dL 07/12/2024 1:43 AM CDT LABORATORY Alkaline Phosphatase 86 40 - 150 U/L 07/12/2024 1:43 AM CDT [facility] LAB[facility] AST 37 0 - 45 U/L 07/12/2024 1:43 AM CDT LABORATORY ALT 68 0 - 70 U/L 07/12/2024 1:43 AM CDT LABORATORY Bilirubin Direct <0.20 0.00 - 0.30 mg/dL 07/12/2024 1:43 AM CDT LABORATORY Blood BLOOD SPECIMEN / Unknown Venipuncture / Unknown 07/12/2024 1:14 AM CDT 07/12/2024 1:23 AM CDT Avery Fernando MD LAB - BLOOD ORDERABL ES Performing Organization Address City/[facility]/ZIP Co de Phone Number [facility] Lab [address] Lab (1st floor, no room number) [address] * (ABNORMAL) Basic metabolic panel (07/12/2024 1:14 AM CDT) Only the most recent of5 resultswithin the time period is included. Sodium 133(L) 135 - 145 mmol/L 07/12/2024 1:43 AM CDT LABORATORY Potassium 3.5 3.4 - 5.3 mmol/L 07/12/2024 1:43 AM CDT LABORATORY Chloride 93(L) 98 - 107 mmol/L 07/12/2024 1:43 AM CDT LABORATORY Carbon Dioxide (CO2) 26 22 - 29 mmol/L 07/12/2024 1:43 AM CDT LABORATORY Anion Gap 14 7 - 15 mmol/L 07/12/2024 1:43 AM CDT LABORATORY Urea Nitrogen 34.9(H) 8.0 - 23.0 mg/dL 07/12/2024 1:43 AM CDT LABORATORY Creatinine 7.76(H) 0.67 - 1.17 mg/dL 07/12/2024 1:43 AM CDT LABORATORY GFR Estimate 7(L) >60 mL/min/1.7 3m2 07/12/2024 1:43 AM CDT LABORATORY Comment:eGFR calculated usin 2020 CKD-EPI equation. Calcium 8.8 8.8 - 10.4 mg/dL 07/12/2024 1:43 AM CDT LABORATORY Comment:Reference intervals for this test were updated on 04/24/2024 to reflect our healthy population more accurately. There may be differences in the flagging of prior results with similar values performed with this method. Those prior results can be interpreted in the context of the updated reference intervals. Glucose 134(H) 70 - 99 mg/dL 07/12/2024 1:43 AM CDT LABORATORY Blood BLOOD SPECIMEN / Unknown Venipuncture / Unknown 07/12/2024 1:14 AM CDT 07/12/2024 1:23 AM CDT Avery Fernando MD LAB - BLOOD ORDERABL ES LABORATORY [facility] Lab [address] [facility] Lab (1st floor, no room number) [place] [address], [facility] * (ABNORMAL) Glucose by meter (07/12/2024 1:13 AM CDT) Only the most recent of41 resultswithin the time period is included. [facility] GLUCOSE BY METER POCT 133(H) 70 - 99 mg/dL 07/12/2024 1:20 AM CDT LABORATORY POC Blood, venous BLOOD SPECIMEN / Unknown 07/12/2024 1:13 AM CDT 07/12/2024 1:20 AM CDT Avery Fernando MD LAB - BEAKER POCT RH LABORATORY POC [facility] [address] Lab (1st floor, no room number) [place] [address] * EKG 12-lead, tracing only (07/12/2024 12:24 AM CDT) Only the most recent of2 resultswithin the time period is included. Systolic Blood Pressure mmHg RADIOLOGY RESULTS Diastolic Blood Pressure mmHg RADIOLOGY RESULTS Ventricular Rate 65 BPM RAD IOLOGY RESULTS Atrial Rate 65 BPM RADIOLOG Y RESULTS MS Interval 234 ms RADIOLOG Y RESULTS QRS Duration 112 ms RADIOLO GY RESULTS QT 430 ms RADIOLOGY RESULTS QTc 447 ms RADIOLOGY RESULTS P [place] 53 degrees RADIOLOGY RESULTS R AXIS 10 degrees RADIOLOGY RESULTS T [place] 51 degrees RADIOLOGY RESULTS Interpretation ECG Sinus rhythm with 1st degree A-V block Otherwise normal ECG When compared with ECG of 23-May-2024 17:08, Criteria for Septal infarct are no longer Present Unconfirmed report - interpretation of this ECG is computer generated - see medical record for final interpretation Confirmed by - EMERGENCY ROOM, PHYSICIAN ([id number]), graphic editor YISSEL VELASQUEZ ([id number]) on 07/12/2024 6:51:31 AM RADIOLOGY RESULTS 07/12/2024 12:2 4 AM CDT 07/12/2024 6:51 AM CDT Avery Fernando MD ECG ORDERABLES RADIOLOGY RESULTS * (ABNORMAL) CBC with platelets (05/30/2024 6:54 [...] MD LAB - BLOOD ORDERABL ES LABORATORY [facility] Lab [address] Lab (1st floor, no room number) [place] [address] * Extra Green Top Tube (LAB USE ONLY) (05/28/2024 6:07 AM CDT) Only the most recent of2 resultswithin the time period is included. Pathologist [facility] Hold Specimen [facility] 05/28/2024 7:32 AM CDT [facility] LAB[facility]ATORY Blood STRUCTURE OF LEFT HAND / Unknown Venipuncture / Unknown 05/28/2024 6:07 AM CDT 05/28/2024 6:17 AM CDT Antonino Cheek MD LAB - BLOOD ORDERABL ES LABORATORY [facility] Lab [address] Lab (1st floor, no room number) [place] [phone] [place] [address] * Extra Purple Top EDTA (LAB USE ONLY) (05/28/2024 6:07 AM CDT) Only the most recent of2 resultswithin the time period is included. Hold Specimen [facility] 05/28/2024 7:32 AM CDT LABORATORY Blood STRUCTURE OF LEFT HAND / Unknown Venipuncture / Unknown 05/28/2024 6:07 AM CDT 05/28/2024 6:17 AM CDT Antonino Cheek MD LAB - BLOOD ORDERABL ES [facility] Lab [address] Lab (1st floor, no room number) [place] [phone] * (ABNORMAL) Hemoglobin (05/28/2024 6:07 AM CDT) Hemoglobin 7.7(L) 13.3 - 17.7 g/dL 05/28/2024 9:02 AM CDT LABORATORY Blood STRUCTURE OF LEFT HAND / Unknown Venipuncture / Unknown 05/28/2024 6:07 AM CDT 05/28/2024 6:17 AM CDT Dileep Anders MD LAB - BLOOD ORD ERABLES [facility] Lab [address] Lab (1st floor, no room number) [place] [phone] * Vancomycin level (05/25/2024 2:04 PM CDT) Vancomycin 11.9 ug/mL 05/25/2024 3:28 PM CDT [facility] LAB[facility]ATORY Comment: Traditional Dosing Therapeutic Range: Trough 10-15 ug/mL Peak 20-40 ug/mL Critical: Greater than 25.0 ug/mL Blood STRUCTURE OF RIGHT UPPER LIMB / Unknown Venipuncture / Unknown 05/25/2024 2:04 PM CDT 05/25/2024 2:07 PM CDT Antonino Cheek MD LAB - BLOOD ORDERABL ES LABORATORY [facility] Lab [address] [facility] Lab (1st floor, no room number) [place] [address], [facility] * Hepatitis B Surface Antibody [...] ES U LABORATORY [facility] [address] [facility] [place] [address], [facility] * Hepatitis B surface antigen (05/25/2024 9:25 AM CDT) Hepatitis B Surface Antigen Nonreactive Nonreactive 05/25/2024 2:23 PM CDT [facility] LAB[facility]ATORY Blood BLOOD SPECIMEN / Unknown Venipuncture / Unknown 05/25/2024 9:25 AM CDT 05/25/2024 10:13 AM CDT Jose Enrique Naylor MD LAB - BLOOD ORDERABL ES [facility] [address] [facility], [address] [place] [address], [facility] * (ABNORMAL) Comprehensive metabolic panel [...] MD LAB - BLOOD ORDERABL ES LABORATORY [facility] Lab [address] [facility] Lab (1st floor, no room number) [place] [address], [facility] * (ABNORMAL) Tissue Aerobic Bacterial Culture [...] [facility] Lab [address] [facility], [address] [place] [phone] * (ABNORMAL) Gram Stain (05/23/2024 6:42 PM CDT) [facility] Culture See corresponding culture for results JOJO [...] [facility] Lab [address] [facility], [address] * Anaerobic Bacterial Culture Routine (05/23/2024 6:42 PM CDT) Culture 4+ Mixed Aerobic and Anaerobic dev JOJO 05/25/2024 2:01 PM CDT [facility] Comment:No predominant organ ism Tissue SCROTAL STRUCTURE / Unknown Non-blood Collection / Unknown 05/23/2024 6:42 PM CDT 05/23/2024 6:46 PM CDT Lizandro Barron MD LAB - MICRO GENERAL ORDERABLES Performing Organization Address City/[facility]/ZIP Co de Phone Number [facility] Inf. Diseases Diag. Lab [address] [facility], [address] * ANE AIRWAY ETT PERFORMABLE (05/23/2024 6:21 PM CDT) Narrative Donnell Ramos APRN CRNA - 05/23/2024 6:21 PM CDT Donnell Ramos APRN CRNA ? 05/23/2024 ??6:33 PM Airway ? Patient location during procedure: OR ? Procedure Start/Stop Times: 05/23/2024 6:21 PM Staff - ? CHILDHOOD DEVELOPMENT TEACHER: Yasemin Almaguer APRN CRNA ? Performed By: [...] Time: 05/23/2024 6:21 PM Tom Castro MD MS ANESTHESIA * CT Abdomen Pelvis w Contrast (05/23/2024 [...] 2:35 PM. MIKE SANTANA MD SYSTEM ID: ??[id number] Narrative 05/23/2024 2:[address] ABDOMEN [...] veins which are not included in the [id number]. MUSCULOSKELETAL: Stable degenerative changes at L4-L5 with [...] veins which are not included in the [id number]. 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 No destructive lesions in the bones. IMPRESSION: 1. 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 2. Other chronic findings as discussed above. Findings were discussed with Dr. Kenna Coe at 2:35 PM. MIKE SANTANA MD SYSTEM ID: [id number] Vi Coe DO IMG CT ORDERABLE S * Blood Culture Peripheral Blood (05/23/2024 1:50 PM CDT) Culture No Growth 05/28/2024 4:06 PM CDT [facility] Blood BLOOD SPECIMEN / Unknown Venipuncture / Unknown 05/23/2024 1:50 PM CDT 05/23/2024 1:53 PM CDT Vi Coe DO LAB - MICRO GENE RAL ORDERABLES [facility] Inf. Diseases Diag. Lab [address] [facility], [address] [place] [address] * (ABNORMAL) Renal panel (03/12/2024 6:06 [...] CDT Eileen Earl MD LAB - BLOOD [facility] LABORAT[facility] [address] [facility] (1st floor, no room number) [place] [address] * COLONOSCOPY (03/08/2024 1:04 PM CDT) [facility] COLONOSCOPY [facility] Patient Name: Herminio Navarro Kayleigh ? Procedure Date: 03/08/2024 1:04 PM [...] and ?oxygen saturations were monitored continuously. The ?SpaceList Adult Colonoscope, Model # CF-CA440U, ?Censitrac # [id number] was introduced through the ?anus and advanced [...] Note Initiated On: 03/08/2024 1:04 PM MRN: ?[id number] Procedure Date: ? 03/08/2024 1:04:50 PM Scope Withdrawal Time: 0 hours 11 minutes 55 seconds Total Procedure Duration: 0 hours 17 minutes 23 seconds Estimated Blood Loss: ? Scope In: 1:12:27 PM Scope Out: 1:29:50 PM RADIOLOGY RESULTS 03/08/2024 1:04 PM CDT Eileen Earl MD PROCEDURES Performing Organization Address City/[facility]/ZIP Co de Phone Number RADIOLOGY RESULTS * (ABNORMAL) Occult blood stool (02/24/2024 11:31 AM CDT) Pathologist [facility] Occult Blood Positive(A ) Negative JOJO 02/24/2024 11:40 AM CDT LABORATORY Stool RECTAL CONTENTS / Unknown Non-blood Collection / Unknown 02/24/2024 11:31 AM CDT 02/24/2024 11:38 AM CDT Jae Noel MD LAB - STOOLS ORDERAB LES Performing Organization Address City/[facility] Co de Phone Number LABORATORY [facility] Lab [address] Lab (1st floor, no room number) [place] [address] * Hepatitis C (HIM External Result) (01/04/2022 12:00 PM CDT) Hep C HIM See Scanned Document EXTERNAL LAB Comment:Nonreactive 01/04/2022 12:0 0 PM CDT Narrative EXTERNAL LAB - 01/04/2022 12:00 PM CDT LAB RESULT [facility] [address] [place] [address] Provider Outside LAB - HIM EXTERNAL R ESULT Performing Organization Address City/[facility] Co de Phone Number EXTERNAL LAB External Lab * (ABNORMAL) Lipid panel (12/07/2017 12:34 PM LITHOGRAPHER HELPER) Pathologist [facility] Cholesterol 115 <200 mg/dL 12/07/2017 1:27 PM LITHOGRAPHER HELPER [facility] Triglycerides 84 <150 mg/dL 12/07/2017 1:27 PM LITHOGRAPHER HELPER [facility] HDL Cholesterol 37(L) >39 mg/dL 8 1:27 PM [facility] LDL Cholesterol Calculated 61 <100 mg/dL 12/07/2017 1:27 PM [facility] Comment:Desirable: <100 mg/d l Non HDL Cholesterol 78 <130 mg/dL 12/07/2017 1:27 PM [facility] Blood specimen (specimen) 12/07/2017 12:34 PM LITHOGRAPHER HELPER 12/07/2017 12:58 PM LITHOGRAPHER HELPER Michele Fuentes MD LAB - BLOOD ORD ERABLES [facility] [address] [place] [address], [facility] [phone] from Last 3 Months or Most Recently Relevant to Health Maintenance Advance Directives For more information, please contact: [phone] * Full Code (Latest Code Status on File) Date Activated Date Inactivated Comments 05/23/2024 8:47 PM 05/30/2024 7:28 PM All basic an d advanced life-sustaining interventions are performed as appropriate Question Answer Comments Code status determined by: Discussion with daivdson gomes/ legal decision maker * Full Code [...] 12:25 PM 01/25/2019 11:45 AM Care Teams Environmental Aid Relationship Specialty Start Date End Date Preet Huff PCP - General 06/24/11
--- OUTSIDE RECORDS SUMMARY | 2024-07-15 14:27 | XMS_ITS | Clinical Summary ---
Author Organization [employer] [facility] Address [place], [place] [address] Care Team Providers Care Sports Agent Name Role Phone Preet Huff MD Primary [...] Tuesday, Tuesday and Tuesday. 0 02/02/2018 Active warfarin (COUMADIN) 5 mg tabletIndications:An ticoagulation [...] times daily. 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/07/2024 Dependence on renal dialysis 11/08/2023 Chronic constipation 06/23/2022 Impaired cognition 09/05/2020 Type 2 diabetes mellitus wit h kidney complication, without long-term current use of insulin 09/30/2016 Subclinical hyperthyroidism 05/24/2015 Vitamin D deficiency 05/21/2015 Mixed hyperlipidemia 07/25/2012 DVT of upper extremity (deep vein thrombosis) detention (current) use of anticoagulants 2010 Secondary hyperparathyroidism [...] Type Department Care Team Description 06/13/2024 Telephone [facility] [address] [place] [address] Preet Huff MD Follow Up (NO OPENINGS AT [facility]) 06/07/2024 2:30 PM CDT Office Visit [facility] [address] [place] [address] Lizandro Singh MD Sleep Follow-up 06/07/2024 2:05 PM CDT Office Visit [facility] [address] [place] [address] Preet Huff MD Hospital F/U (05/30 [facility] -groin infection) 06/07/2024 Travel 05/21/2024 Nurse Triage [facility] [address] [place] [address] Preet Huff MD Testicle Pain from Last [...] 06/07/2024 2:42 PM CDT Plan of Treatment Health Maintenance Due Date Last Done Comments Zoster (shingles) series for age 50+ (1 of 2) 2013 Pneumococcal series for age 6-64 (3 of 3 - PPSV23 or PCV20) 03/14/2019 01/17/2019, 12/02/2015, 10/12/2010, Additional history exists Tetanus booster 10/21/2019 10/21/2009 Depression screening for age 12+ 08/13/2020 08/13/2019, 03/15/2017, 02/06/2016 COVID-19 vaccine series ( season) 2024 06/23/2022, 01/13/2022, 08/17/2021, Additional [...] Completed 10/21/2009 Medical Devices Implanted Type Area Packager Hand Device Identifier Shelf Expiration Date Model / Serial / Lot Cath Peritoneal Cvd 62cm - [id number] Implanted:Qty: 1 on 10/31/2009 at [facility] N/A: Abdomen STIVEN 05/10/2014 [id number] # / / [id number] Procedures Procedure Name Priority Date/Time Associated Diagnosis Comments LIPID PANEL W REFLEX MEASURED LDL Routine 11/08/2023 3:05 PM [facility] Mixed hyperlipidemia COLONOSCOPY SCREENING Routine 09/24/2013 12:00 AM [facility] Colon cancer screening ANTI HIV 1/2 Timed 03/04/2009 10:05 AM CDT Pre-Transplant Evaluation for End Stage Renal Disease ANTI HCV Timed 03/04/2009 10:05 AM CDT Pre-Transplant Evaluation for End Stage Renal Disease from Last 3 Months or Most Recently Relevant to Health Maintenance Results * (ABNORMAL) LIPID PANEL W REFLEX MEASURED LDL (11/08/2023 3:05 PM [facility]) CHOLESTEROL,TOTAL 90(L) 100 - 199 mg/dL 11/09/2023 10:41 AM [facility] Comment: Cholesterol, Total Reference Ranges Desirable <200 mg/dL Borderline 200-239 mg/dL High >=240 mg/dL TRIGLYCERIDES 104 <150 mg/dL 11/09/2023 10:41 AM [facility] HDL CHOLESTEROL 30(L) >40 mg/dL 10:41 AM [facility] NON-HDL CHOLESTEROL 60 <145 mg/dl 11/09/2023 10:41 AM [facility] CHOL/HDL RATIO 3.00 <4.50 11/09/2023 10:41 AM [facility] LDL CHOLESTEROL 39 <=130 mg/dL 11/09/2023 10:41 AM [facility] VLDL CHOLESTEROL 21 <=30 mg/dL 11/09/2023 10:41 AM [facility] PROVIDER ORDERED STATUS RANDOM 11/09/2023 10:41 AM [facility] Blood BLOOD SPECIMEN / Unknown Butterfly / Unknown 11/08/2023 3:05 PM [facility] 11/08/2023 3:08 PM [facility] Preet Huff MD [facility] [address] [place] [address], * COLONOSCOPY SCREENING (09/24/2013 12:00 AM [facility]) Narrative 09/24/2013 12:00 AM [facility] Procedure Note Scanner - 09/24/2013 12:00 AM CST Preet Huff MD GI PROCEDURE O RD * ANTI HCV (03/04/2009 10:05 AM CDT) ANTI HCV Non-reacti ve [facility] Blood specimen (specimen) BLOOD SPECIMEN / Unknown 03/04/2009 10:05 AM CDT 03/04/2009 9:57 AM CDT Alfredo Juarez MD SEND OUTS [facility] [place]NAL ZIP [id number] [address] * ANTI HIV 1/2 (03/04/2009 10:05 AM CDT) ANTI HIV 1/2 Non-reacti ve [facility] Blood specimen (specimen) BLOOD SPECIMEN / Unknown 03/04/2009 10:05 AM CDT 03/04/2009 9:57 AM CDT Alfredo Juarez MD SEND OUTS [facility] [place]NAL ZIP [id number] [place] [id number] from Last 3 Months or Most Recently Relevant to Health Maintenance Advance Directives Documents on File Type Date Recorded Patient Telecom Network Manager Expl anation Power of Upper Doubler 09/04/2014 12:00 AM 07/2009 * Full Code [...] 5:57 PM 03/16/2009 5:32 PM Care Teams Sports Agent Relationship Specialty Start Date End Date Preet Huff MD [address] [place] [address] PCP - General 12/02/06
--- OUTSIDE RECORDS SUMMARY | 2024-07-15 14:28 | XMS_ITS | Encounter Summary ---
Author Organization [facility] Address [address] [place] [address] Care Team Providers Care Mems Integration Engineer Name Role Phone Preet Huff Hans Primary Care Provider [phone] Reason for Visit * Reason Comments Altered Mental Status Encounter Details Date Type Department Care Team (Late st Contact Info) Description 07/12/2024 12:18 AM CDT - 07/12/2024 7:24 AM CDT [facility] Emergency Dept [address] [place] [id number] [phone] Avery Fernando MD [facility] [address] [place], [place] [id number] Rand Schwab MD [facility] [address] [id number] Transient hypotension; ESRD (end stage renal disease) on dialysis (H); Supratherapeutic INR Discharge Disposition: Home or Self Care Social [...] Answer Date Recorded Do you have housing? 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 Sexual Orientation Not on file documented as [...] Mass Index 29.76 07/12/2024 6:00 AM CDT documented in this encounter Discharge Instructions * Discharge Instructions* Avery Fernando MD - 07/12/2024 6:06 AM CDT Stop your warfarin for today and tomorrow then resume after that Please recheck your INR on Tuesday Dialysis on tuesday documented in this encounter Medications at Time of Discharge Medication Sig Dispensed Refills Start Date End Date B Egkqxje-N-Fuilk Acid (WESCAPS PO) Take 1 capsule by [...] Sun 05/30/2024 documented as of this encounter ED Notes * Aster Menjivar RN - 07/12/2024 7:08 AM CDT Report given to EMS. Pt alert, able to answer questions appropriately. IV line removed. Pressure applied. Discharged papers handed to EMS. * Aster Menjivar RN - 07/12/2024 6:00 AM CDT RN spoke with patient's aunt, Thelma on the phone. According to aunt, they called ambulance due to hypotension. After pt's dialysis blood pressure dropped. No confusion noted until pt was brought by ambulance. As per aunt, patient is at times slow to answer which is his baseline and the only concern why they call EMS is due to low blood pressure. notified. * Aster Menjivar RN - 07/12/2024 2:00 AM CDT Attempted to call patient's aunt, Thelma, at [phone], no answer. * Alecia Cano MD - 07/12/2024 1:[address] [facility] Stroke Telephone Note I was called by Avery Fernando on 07/12/24 regarding patient Herminio Victor. The patient is a 59year old male with a history of DVT on coumadin (INR 4.68 in ER tonight), cognitive impairment, ESRD on HD, DM2, legally blind, ?stroke (unclear location/primary deficits), SHIRLEY, HTN, HLD. Went to dialysis today and after that at some point thereafter (either right after or maybe within 2 hours of coming in), had dizziness and confusion. EMS called around midnight, pt hypotensive to SBP 80s. In ER he has no focal deficits and is oriented to himself, location, situation. Tier 1 strokecode was called. Of note patient had admission in spring 2023 for melena, workup showed esophageal varices requiringmultiple RBC transfusions, no definitive treatment. He is back on coumadin. Vitals BP: 99/46 Pulse: 67 Resp: 18 Stroke Code Data (for stroke code without tele) Stroke code activated 07/12/24 0112 Stroke provider first response 07/12/24 0113 Last known normal 07/12/24 1300 Time of discovery (or onset of symptoms) 07/11/[address] read by Stroke Neuro Provider 07/12/24 0140 Was stroke code de-escalated? Yes 07/12/[address] head: No acute intracranial pathology CTA head/neck: Intracranial vessels patent, 40% R and 60% L cervical ICA stenoses CTP: No focal perfusion deficit Intravenous Thrombolysis Not given due to: - minor/isolated/quickly resolving symptoms - DOAC dose within 48 hours or INR > 1.7 - unclear or unfavorable risk-benefit profile for extended window thrombolysis beyond the conventional 4.5 hour time window Endovascular Treatment Not initiated due to absence of proximal vessel occlusion Impression Suspect lightheadedness/confusion in setting of hypotension +/- hemodynamic effects of elevated INRvs other primary systemic etiology. Low suspicion for acute ischemic stroke, this can be ruled out with MRI. Recommendations -Can obtain MRI brain without gadolinium if alternative cause of dizziness/confusion is not identified -If MRI shows acute stroke please consult telestroke service for further recommendations; if no stroke/neurovascular pathology on MRI, no further recommendations from stroke workup standpoint My recommendations are based on the information provided over the phone by Herminio Victor's in-person providers. They are not intended to replace the clinical judgment of his in-person providers. I was not requested to personally see or examine the patient at this time. Alecia Cano MD Vascular Neurology To page me or covering stroke neurology production team manager, click here: AMCOM Choose Corporate Compliance Director tab at top, then select NEUROLOGY/ALL SITES from middle drop- down box, press Enter, then look for stroke or telestroke for your site. * Avery Fernando MD - 07/12/2024 12:57 AM CDT Emergency Department Note History of Present Illness Chief Complaint Altered Mental Status HPI Herminio Victor is a 59 year old male on ESRD who presents with 2 hours of confusion and dizziness described as spinning sensation. Patient did have dialysis today and finished around 1 PM. Patient states that he felt fine for several hours but then 2 hours ago started feeling unwell. EMS reports is conflicting with patient's report as they reported that his symptoms started after dialysis shortly. Patient denies any nausea or vomiting. He states that he feels confused. The dizziness is notaccompanied by any other symptoms. He denies any headache, vision changes, nausea, vomiting, chest pain, shortness of breath. Blood pressure was initially low in the 80's per EMS. Family did not arrive with patient. Patient lives with his mother and aunt. Independent Historian None Review of External Notes none Past Medical History Medical History and Problem List Past Medical History: Diagnosis Date ??? A-V [...] Retinopathy ??? Sleep apnea CPAP ??? Syncope Medications B Lelmetb-N-Uyksg Acid (WESCAPS PO) calcium acetate (PHOSLO) 667 MG CAPS capsule calcium acetate (PHOSLO) 667 MG CAPS capsule metoprolol tartrate (LOPRESSOR) 100 MG tablet pantoprazole (PROTONIX) 40 MG EC tablet sennosides (SENOKOT) 8.6 MG tablet warfarin ANTICOAGULANT (COUMADIN) 5 MG tablet Surgical History Past Surgical History: Procedure Laterality Date ??? [...] AV DIALYSIS SHUNT left thigh 05/23 ??? COLONOSCOPY N/A 03/08/2024 Procedure: Colonoscopy with polypectomy by cold biopsy forceps; Surgeon: Steven Savage MD; Location: [facility] ??? CREATE FISTULA ARTERIOVENOUS LOWER EXTREMITY 06/20/2013 [...] Rober Saravia MD; Location: [facility] OR ??? ESOPHAGOSCOPY, GASTROSCOPY, DUODENOSCOPY (EGD), COMBINED N/A 02/25/2024 Procedure: Esophagoscopy, gastroscopy, duodenoscopy (EGD), combined; Surgeon: Benjie Flores MD; Location: [facility] ??? ESOPHAGOSCOPY, GASTROSCOPY, DUODENOSCOPY (EGD), COMBINED N/A 03/06/2024 Procedure: ESOPHAGOGASTRODUODENOSCOPY; Surgeon: Steven Savage MD; Location: [facility] OR ??? GENITOURINARY SURGERY TURP,CIRCUMCISION ??? INCISION AND DRAINAGE ABSCESS SCROTUM, COMBINED N/A 05/23/2024 Procedure: Incision and drainage, debridement of scrotal skin and subcutaneous tissues for necrotizing soft tissue infection of the scrotum; Surgeon: Lizandro Barron MD; Location: [facility] OR ??? INSERT CATHETER VENOUS TRANSLUMBAR 08/08/2012 Procedure: INSERT CATHETER VENOUS TRANSLUMBAR; LUMBAR TUNNEL CATH PLACEMENT.; Surgeon: Michele Fuentes MD; Location: [facility] OR ??? IR DIALYSIS FISTULOGRAM LEFT 01/25/2019 ??? IR DIALYSIS FISTULOGRAM LEFT 10/02/2019 ??? IR DIALYSIS FISTULOGRAM LEFT 03/18/2020 ??? IR DIALYSIS FISTULOGRAM LEFT 02/11/2022 ??? IRRIGATION AND DEBRIDEMENT FOOT, COMBINED Left [...] Surgeon: Rober Saravia MD; Location: [facility] OR Physical Exam Patient Vitals for the past 24 hrs: BP Pulse Resp SpO2 07/12/24 0024 99/46 67 18 94 % Physical Exam Constitutional: Appearance: He is well-developed. HENT: Right Ear: External ear normal. Left Ear: External ear normal. Mouth/Throat: Mouth: Mucous membranes are moist. Pharynx: Oropharynx is clear. No oropharyngeal exudate. Eyes: General: No scleral icterus. Extraocular Movements: Extraocular movements intact. Conjunctiva/sclera: Conjunctivae normal. Pupils: Pupils are equal, round, and reactive to light. Cardiovascular: Rate and Rhythm: Normal rate and regular rhythm. Heart sounds: Normal heart sounds. No murmur heard. No friction rub. No gallop. Pulmonary: Effort: Pulmonary effort is normal. No respiratory distress. Breath sounds: Normal breath sounds. No stridor. No wheezing, rhonchi or rales. Abdominal: General: Bowel sounds are normal. There is no distension. Palpations: Abdomen is soft. There is no mass. Tenderness: There is no abdominal tenderness. Musculoskeletal: General: Normal range of motion. Cervical back: Normal range of motion and neck supple. Right lower leg: No edema. Left lower leg: No edema. Lymphadenopathy: Cervical: No cervical adenopathy. Skin: General: Skin is warm and dry. Capillary Refill: Capillary refill takes less than 2 seconds. Findings: No rash. Neurological: General: No focal deficit present. Mental Status: He is alert. Cranial Nerves: No cranial nerve deficit. Comments: Alert and oriented to person and place only. Speech slow at times. 5/5 strength x 4 Diagnostics Lab Results Labs Ordered and Resulted from Time of ED Arrival to Time of ED Departure BASIC METABOLIC PANEL - Abnormal Result Value Sodium 133 (*) Potassium 3.5 Chloride 93 (*) Carbon Dioxide (CO2) 26 Anion Gap 14 Urea Nitrogen 34.9 (*) Creatinine 7.76 (*) GFR Estimate 7 (*) Calcium 8.8 Glucose 134 (*) TROPONIN T, HIGH SENSITIVITY - Abnormal Troponin T, High Sensitivity 43 (*) INR - Abnormal INR 4.68 (*) CBC WITH PLATELETS AND DIFFERENTIAL - Abnormal WBC Count 3.1 (*) RBC Count 3.62 (*) Hemoglobin 9.9 (*) Hematocrit 33.1 (*) MCV 91 MCH 27.3 MCHC 29.9 (*) RDW 19.2 (*) Platelet Count 133 (*) % Neutrophils 59 % Lymphocytes 18 % Monocytes 16 % Eosinophils 6 % Basophils 0 % Immature Granulocytes 0 NRBCs per 100 WBC 0 Absolute Neutrophils 1.9 Absolute Lymphocytes 0.6 (*) Absolute Monocytes 0.5 Absolute Eosinophils 0.2 Absolute Basophils 0.0 Absolute Immature Granulocytes 0.0 Absolute NRBCs 0.0 GLUCOSE BY METER - Abnormal GLUCOSE BY METER POCT 133 (*) TROPONIN T, HIGH SENSITIVITY - Abnormal Troponin T, High Sensitivity 41 (*) LACTIC ACID WHOLE BLOOD - Normal Lactic Acid 0.8 HEPATIC FUNCTION PANEL - Normal Protein Total 7.3 Albumin 3.8 Bilirubin Total 0.4 Alkaline Phosphatase 86 AST 37 ALT 68 Bilirubin Direct <0.20 ROUTINE UA WITH MICROSCOPIC REFLEX TO CULTURE GLUCOSE MONITOR NURSING POCT TYPE AND SCREEN, ADULT ABO/RH(D) O POS Antibody Screen Negative SPECIMEN EXPIRATION DATE BLOOD CULTURE ABO/RH TYPE AND SCREEN Imaging XR Chest 2 Views Final Result IMPRESSION: Low lung volumes but the lungs appear clear. Normal heart size and pulmonary vascularity. No pleural fluid or pneumothorax. CTA Head Neck with Contrast Final Result IMPRESSION: HEAD CT: 1. No CT finding of a mass, hemorrhage or focal area suggestive of acute infarct. 2. Mild age-related changes. HEAD CTA: 1. No discrete vessel occlusion, significant stenosis, aneurysm or high flow vascular malformation involving the arteries of the [place]. NECK CTA: 1. Normal configuration of the great vessels off the aortic arch with no significant stenosis of their origins. 2. Approximately 40% stenosis of the origin of the right internal carotid artery by NASCET criteria. 3. Approximately 60% stenosis of the origin of the left internal carotid artery by NASCET criteria along with a tandem lesion of approximately 50% stenosis approximately 2 cm from its origin. 4. No radiographic evidence of dissection. CT PERFUSION: 1. Cerebral perfusion does appear fairly symmetric with no discrete deficits in cerebral blood flowor blood volume. There is a delay in transit time to the right cerebellar hemisphere which could beartifactual in nature due to the color maps being distorted. If clinically concerned recommend MRI brain for further evaluation. Head CT findings were communicated by phone to Dr. Fernando at 1:30 AM. CTA results were communicated by phone to Dr. Fernando at 1:49 am on 07/12/2024. CT Head w/o Contrast Final Result IMPRESSION: HEAD CT: 1. No CT finding of a mass, hemorrhage or focal area suggestive of acute infarct. 2. Mild age-related changes. HEAD CTA: 1. No discrete vessel occlusion, significant stenosis, aneurysm or high flow vascular malformation involving the arteries of the [place]. NECK CTA: 1. Normal configuration of the great vessels off the aortic arch with no significant stenosis of their origins. 2. Approximately 40% stenosis of the origin of the right internal carotid artery by NASCET criteria. 3. Approximately 60% stenosis of the origin of the left internal carotid artery by NASCET criteria along with a tandem lesion of approximately 50% stenosis approximately 2 cm from its origin. 4. No radiographic evidence of dissection. CT PERFUSION: 1. Cerebral perfusion does appear fairly symmetric with no discrete deficits in cerebral blood flowor blood volume. There is a delay in transit time to the right cerebellar hemisphere which could beartifactual in nature due to the color maps being distorted. If clinically concerned recommend MRI brain for further evaluation. Head CT findings were communicated by phone to Dr. Fernando at 1:30 AM. CTA results were communicated by phone to Dr. Fernando at 1:49 am on 07/12/2024. CT Head Perfusion w Contrast (Results Pending) EKG ECG taken at 0024, ECG read at 0030 NSR with 1st degree AVB Rate 65 bpm. NC interval 234 ms. QRS duration 112 ms. QT/QTc 430/447 ms. P-R-T axes 53 10 51. Independent Interpretation None ED Course Medications Administered Medications - No data to display Procedures Procedures Discussion of Management Neurology, stroke neurology ED Course 005 Exam Additional Documentation None Medical Decision Making / Diagnosis [facility] Diagnoses: None MIPS None MDM Herminio Victor is a 59 year old male with ESRD on dailysis, Who presented with concern for lowblood pressure and confusion. History somewhat limited as the patient does have a diagnosis cognitive dementia on his chart. Patient tells me symptoms started about 2 hours ago with dizziness. He wasadmitted tier 1 stroke given timing. Thankfully his CT did not show anything acute. Stroke neurology also signed off stating that they do not think this represents a stroke. After 500 cc bolus, patient's blood pressures improved. We had been trying to call his family all night until he finally reached around 6 AM. They said that they sent him in because of low blood pressure and nothing else. At t his point, patient has no further concerns but does desire to go home. Patient should follow up with his dialysis as scheduled. His INR was elevated today so I have asked him to hold today and tomorrow's doses. He should recheck with his doctor tomorrow and see where things are at. Return precaution provided. Patient is comfortable with the plan. Patient currently waiting for ambulance ride to go back home. Stroke neurology stated that they do not feel that he needs follow-up unless he has an abnormal imaging. Disposition The patient was discharged. Diagnosis ICD-10-CM 1. Transient hypotension I95.9 2. ESRD (end stage renal disease) on dialysis (H) N18.6 Z99.2 3. Supratherapeutic INR R79.1 MD Abdullahi Moraes Wenlan, MD 07/12/24 0724 * Abdullahi Terry RN - 07/12/2024 12:23 AM CDT Here for concern of progressive confusion. Per ems, patient had dialysis around 1pm and started getting progressively confuse since that time associated with dizziness and weakness. Ems blood sugar 166. Per ems, patient's systolic blood pressure is also in the 80s. GCS 15, disoriented to time and situation. ABCs intact. Triage Assessment (Adult) Row Name 07/12/24 0022 Triage Assessment Airway WDL WDL Respiratory WDL Respiratory WDL WDL Cardiac WDL Cardiac WDL WDL * Abdullahi Terry RN - 07/12/2024 12:18 AM CDT Bed: [facility] Expected date: Expected time: Means of arrival: Comments: 3 ED RNs @2300, 11 pts max documented in this encounter Plan of Treatment Pending Results Name Type Priority Associated Diagnoses Date /Time Blood Culture Peripheral Blood Microbiology STAT 07/12/2024 1:[address] Head Perfusion w Contrast Imaging STAT 07/12/2024 1:38 AM CDT Scheduled Orders Name Type Priority Associated Diagnoses Orde r Schedule CT Head Perfusion w Contrast Imaging STAT One time imaging for 1 Occurrences starting 07/12/2024 until 07/12/2024 documented as of this encounter Procedures Procedure Name Priority Date/Time Associated Diagnosis Comments TROPONIN T, HIGH SENSITIVITY STAT 07/12/2024 4:23 AM CDT XR CHEST 2 VIEWS STAT 07/12/2024 3:15 AM CDT CTA HEAD NECK W CONTRAST STAT 07/12/2024 1:[address] HEAD W/O CONTRAST STAT 07/12/2024 1:25 AM CDT EXTRA TUBE STAT 07/12/2024 1:14 AM CDT EXTRA RED TOP TUBE STAT 07/12/2024 1: 14 AM CDT CBC WITH PLATELETS AND DIFFERENTIAL STAT 07/12/2024 1:14 AM CDT TYPE AND SCREEN, ADULT STAT 07/12/2024 1:14 AM CDT TROPONIN T, HIGH SENSITIVITY STAT 07/12/2024 1:14 AM CDT CBC WITH PLATELETS & DIFFERENTIAL STAT 07/12/2024 1:14 AM CDT INR STAT 07/12/2024 1:14 AM CDT LACTIC ACID WHOLE BLOOD STAT 07/12/2024 1:14 AM CDT HEPATIC FUNCTION PANEL STAT 07/12/2024 1:14 AM CDT BLOOD CULTURE STAT 07/12/2024 1:14 AM CDT ABO/RH TYPE AND SCREEN STAT 07/12/2024 1:14 AM CDT BASIC METABOLIC PANEL STAT 07/12/2024 1:14 AM CDT GLUCOSE BY METER STAT 07/12/2024 1:13 AM CDT EKG 12-LEAD, TRACING ONLY STAT 07/12/2024 12:24 AM CDT documented in this encounter Results * (ABNORMAL) Troponin T, High Sensitivity (07/12/2024 4:23 AM CDT) Troponin T, High Sensitivity 41(H) <=22 ng/L 07/12/2024 4:44 AM CDT [facility] Comment: Either a High Sensitivity Troponin [...] Fernando MD LAB - BLOOD ORDERABL ES [facility] Acute Care Lab [address] Lab (1st floor, no room number) [place] [address] * XR Chest 2 Views (07/12/2024 3:15 AM CDT) Anatomical Region Laterality Modality Chest Digital Radiogra phy 07/12/2024 3:15 AM CDT Impressions 07/12/2024 3:18 AM CDT IMPRESSION: Low lung volumes but the lungs appear clear. Normal heart size and pulmonary vascularity. No pleural fluid or pneumothorax. Narrative 07/12/2024 3:18 AM CDT EXAM: XR CHEST 2 VIEWS LOCATION: [facility] DATE: 07/12/2024 INDICATION: ams COMPARISON: 03/11/2024. Procedure Note Pavan Sanon MD - 07/12/2024 EXAM: XR CHEST 2 VIEWS LOCATION: [facility] DATE: 07/12/2024 INDICATION: ams COMPARISON: 03/11/2024. IMPRESSION: [...] vascular malformation involving the arteries of the [place]. NECK CTA: 1. ??Normal configuration [...] CONTRAST, CTA HEAD NECK W CONTRAST LOCATION: [facility] DATE: 07/12/2024 INDICATION: ams and weakness. COMPARISON: [...] CONTRAST, CTA HEAD NECK W CONTRAST LOCATION: [facility] DATE: 07/12/2024 INDICATION: ams and weakness. COMPARISON: [...] vascular malformation involving the arteries [place] NECK CTA: 1. Normal configuration of [...] vascular malformation involving the arteries of the [place]. NECK CTA: 1. ??Normal configuration [...] CONTRAST, CTA HEAD NECK W CONTRAST LOCATION: [facility] DATE: 07/12/2024 INDICATION: ams and weakness. COMPARISON: [...] CONTRAST, CTA HEAD NECK W CONTRAST LOCATION: [facility] DATE: 07/12/2024 INDICATION: ams and weakness. COMPARISON: [...] vascular malformation involving the arteries [place] NECK CTA: 1. Normal configuration of [...] Avery Fernando MD IMG CT ORDERABLES * Adult Type and Screen (07/12/2024 1:14 AM CDT) ABO/RH(D) O POS 07/12/2024 1:01 AM CDT [facility] BLOOD BANK Antibody Screen Negative Negative 07/12/2024 1:01 AM CDT [facility] BLOOD BANK SPECIMEN EXPIRATION DATE [id number] 07/12/2024 1:01 AM CDT [facility] B[facility] B[facility] Blood BLOOD SPECIMEN / Unknown Venipuncture / Unknown 07/12/2024 1:14 AM CDT 07/12/2024 1:23 AM CDT Avery Fernando MD LAB - BLOOD BANK SHANNON T ORDER [facility] BLOOD BANK [address] [place] [address], [facility] * Extra Red Top Tube (07/12/2024 1:14 AM CDT) Hold Specimen JIC 07/12/2024 2:31 AM CDT [facility] Blood BLOOD SPECIMEN / Unknown Venipuncture / Unknown 07/12/2024 1:14 AM CDT 07/12/2024 1:23 AM CDT Avery Fernando MD LAB - BLOOD ORDERABL ES [facility] Acute Care Lab [address] Lab (1st floor, no room number) [place] [address], [facility] * (ABNORMAL) CBC with platelets and differential (07/12/2024 1:14 AM CDT) WBC Count 3.1(L) 4.0 - 11.0 10e3/uL [...] Fernando MD LAB - BLOOD ORDERABL ES [facility] Lab [address] Lab (1st floor, no room number) [place] [phone] [place] [address] * (ABNORMAL) INR (07/12/2024 1:14 AM CDT) INR 4.68(H) 0.85 - 1.15 07/12/2024 1:49 AM CDT [facility] Blood BLOOD SPECIMEN / Unknown Venipuncture / Unknown 07/12/2024 1:14 AM CDT 07/12/2024 1:23 AM CDT Avery Fernando MD LAB - BLOOD ORDERABL ES [facility] Acute Care Lab [address] Lab (1st floor, no room number) [place] [address] * Hepatic function panel (07/12/2024 1:14 AM CDT) Protein Total 7.3 6.4 - 8.3 g/dL 07/12/2024 1:43 AM CDT [facility] Albumin 3.8 3.5 - 5.2 g/dL 07/12/2024 1:43 AM CDT [facility] Bilirubin Total 0.4 <=1.2 mg/dL 07/12/2024 1:43 AM CDT [facility] Alkaline Phosphatase 86 40 - 150 U/L 07/12/2024 1:43 AM CDT [facility] AST 37 0 - 45 U/L 07/12/2024 1:43 AM CDT [facility] ALT 68 0 - 70 U/L 07/12/2024 1:43 AM CDT [facility] Bilirubin Direct <0.20 0.00 - 0.30 mg/dL 07/12/2024 1:43 AM CDT [facility] Blood BLOOD SPECIMEN / Unknown Venipuncture / Unknown 07/12/2024 1:14 AM CDT 07/12/2024 1:23 AM CDT Avery Fernando MD LAB - BLOOD ORDERABL ES Performing Organization Address City/[facility]/ZIP Co de Phone Number [facility] Lab [address] Lab (1st floor, no room number) [place] [phone] * Lactic acid whole blood (07/12/2024 1:14 AM CDT) Lactic Acid 0.8 0.7 - 2.0 mmol/L 07/12/2024 1:27 AM CDT [facility] Blood BLOOD SPECIMEN / Unknown Venipuncture / Unknown 07/12/2024 1:14 AM CDT 07/12/2024 1:23 AM CDT Avery Fernando MD LAB - BLOOD ORDERABL ES [facility] Lab [address] Lab (1st floor, no room number) [place] [phone] * (ABNORMAL) Troponin T, High Sensitivity (07/12/2024 1:14 AM CDT) [facility] Troponin T, High Sensitivity 43(H) <=22 ng/L 07/12/2024 1:43 AM CDT LABORATORY Comment: Either a High [...] Fernando MD LAB - BLOOD ORDERABL ES [facility] Care Lab [address] [facility] Lab (1st floor, no room number) [place] [address], [facility] * (ABNORMAL) Basic metabolic panel (07/12/2024 1:14 AM CDT) [facility] Sodium 133(L) 135 - 145 mmol/L 07/12/2024 [...] - 23.0 mg/dL 07/12/2024 1:43 AM CDT [facility] Creatinine 7.76(H) 0.67 - 1.17 mg/dL 07/12/2024 1:43 AM CDT [facility] GFR Estimate 7(L) >60 mL/min/1.7 3m2 07/12/2024 1:43 AM CDT [facility] Comment:eGFR calculated usin g 2020 CKD-EPI equation. Calcium 8.8 8.8 - 10.4 mg/dL 07/12/2024 1:43 AM CDT [facility] Comment:Reference intervals for [...] Fernando MD LAB - BLOOD ORDERABL ES [facility] Lab [address] Lab (1st floor, no room number) [place] [address], [facility] * (ABNORMAL) Glucose by meter (07/12/2024 1:13 AM CDT) [facility] Signature GLUCOSE BY METER POCT 133(H) 70 - 99 mg/dL 07/12/2024 1:20 AM CDT LABORATORY POC Blood, venous BLOOD SPECIMEN / Unknown 07/12/2024 1:13 AM CDT 07/12/2024 1:20 AM CDT Avery Fernando MD LAB - [facility] [address] Lab (1st floor, no room number) [place] [id number] * EKG 12-lead, tracing only (07/12/2024 12:24 AM CDT) Systolic Blood Pressure mmHg RADIOLOGY RESULTS Diastolic Blood Pressure mmHg RADIOLOGY RESULTS Ventricular Rate 65 BPM RAD IOLOGY RESULTS Atrial Rate 65 BPM RADIOLOG Y RESULTS NC Interval 234 ms RADIOLOG Y RESULTS QRS Duration 112 ms RADIOLO GY RESULTS QT 430 ms RADIOLOGY RESULTS QTc 447 ms RADIOLOGY RESULTS P Thompson 53 degrees RADIOLOGY RESULTS R AXIS 10 degrees RADIOLOGY RESULTS T Thompson 51 degrees RADIOLOGY RESULTS Interpretation ECG Sinus rhythm with 1st degree A-V block Otherwise normal ECG When compared with ECG of 23-May-2024 17:08, Criteria for Septal infarct are no longer Present Unconfirmed report - interpretation of this ECG is computer generated - see medical record for final interpretation Confirmed by - EMERGENCY ROOM, PHYSICIAN ([id number]), technical writer and editor YISSEL VELASQUEZ ([id number]) on 07/12/2024 6:51:31 AM RADIOLOGY RESULTS 07/12/2024 12:2 4 AM CDT 07/12/2024 6:51 AM CDT Avery Fernando MD ECG ORDERABLES RADIOLOGY RESULTS documented in this encounter Visit Diagnoses Diagnosis Transient hypotension Nonspecific low blood pressure reading ESRD (end stage renal disease) on dialysis (H) End stage renal disease Supratherapeutic INR Abnormal coagulation profile documented in this encounter Administered Medications Inactive Administered Medications - up to 3 most recent administrations Medication Order MAR Action Action Date Dose Rate Site iopamidol (ISOVUE-370) solution 67 mL 67 mL, Intravenous, ONCE, On Padmaja 07/12/24 at 0115, For 1 dose, To be administered by Imaging staff during CTA Head/Neck scan. $Given 07/12/2024 1:18 AM CDT 117 mLs meclizine (ANTIVERT) tablet 25 mg 25 mg, Oral, ONCE, On Padmaja 07/12/24 at 0330, For 1 dose $Given 07/12/2024 3:48 AM CDT 25 mg sodium chloride 0.9 % bag for CT scan flush use As instructed, 100 mL, ONCE, On Padmaja 07/12/24 at 0115, For 1 dose, For use by Radiology to intermittently use as a flush for patients receiving a CT scan. $Given 07/12/2024 1:19 AM CDT 80 mLs sodium chloride 0.9% BOLUS 500 mL Intravenous, 500 mL, ONCE, at 500 mL/hr, Administer over 1 Hours, On Padmaja 07/12/24 at 0115, For 1 dose $New Bag 07/12/2024 1:56 AM CDT 500 mLs 500 mL/hr documented in this encounter Active and Recently Administered Medications Times are shown in CDT. Scheduled Medication Order 07/10/2024 07/11/2024 07/12/2024 iopamidol (ISOVUE-370) solution 67 mL (COMPLETED)(Linked Group 1) 67 mL, Intravenous, ONCE, On Padmaja 07/12/24 at 0115, For 1 dose, To be administered by Imaging staff during CTA Head/Neck scan. 0118 ($Given - Provi norah: Tena E Pioske - Comment: added perfusion ct) meclizine (ANTIVERT) tablet 25 mg (COMPLETED) 25 mg, Oral, ONCE, On Padmaja 07/12/24 at 0330, For 1 dose 0348 ($Given - Provi norah: Aster Menjivar RN) sodium chloride 0.9 % bag for CT scan flush use (COMPLETED)(Linked Group 1) As instructed, 100 mL, ONCE, On Padmaja 07/12/24 at 0115, For 1 dose, For use by Radiology to intermittently use as a flush for patients receiving a CT scan. 0119 ($Given - Provi norah: Tena E Pioske) sodium chloride 0.9% BOLUS 500 mL (COMPLETED) Intravenous, 500 mL, ONCE, at 500 mL/hr, Administer over 1 Hours, On Padmaja 07/12/24 at 0115, For 1 dose 0156 ($New Bag - Pro vider: Aster Menjivar RN)0300 (Stopped - Provider: Aster Menjivar RN) Linked Groups Order Group 1: iopamidol (ISOVUE-370) solution 67 mL (COMPLETED)Jump to med 67 mL, Intravenous, ONCE, On Padmaja 07/12/24 at 0115, For 1 dose, To be administered by Imaging staff during CTA Head/Neck scan. And sodium chloride 0.9 % bag for CT scan flush use (COMPLETED)Jump to med As instructed, 100 mL, ONCE, On Padmaja 07/12/24 at 0115, For 1 dose, For use by Radiology to intermittently use as a flush for patients receiving a CT scan. documented in this encounter Care Teams Mems Integration Engineer Relationship Specialty Start Date End Date Preet Huff PCP - General 06/24/11 documented as of this encounter
--- OUTSIDE RECORDS SUMMARY | 2024-07-15 14:28 | XMS_ITS | Referral Summary ---
Author Organization [place] Address [address] [place] [address] Care Team Providers Care Artillery Meteorological Man Name Role Phone Preet Huff Hans Primary Care Provider [phone] Encounters Date Type Department Care Team Description 07/12/2024 Travel 07/12/2024 12:18 AM CDT - 07/12/2024 7:24 AM CDT Emergency [facility] Emergency Dept [address] [place] [address] Avery Fernando MD Richardson, Elizabeth, MD Transient hypotension; ESRD (end stage renal disease) on dialysis (H); Supratherapeutic INR Discharge Disposition: Home or Self Care 05/23/2024 1:14 PM CDT - 05/30/2024 5:21 PM CDT Hospital Encounter [facility] 5 Medical Surgical [address] [place] [address] Vi Hernandez DO Cabrera, Jesus F, MD Supratherapeutic INR; Mita's gangrene of scrotum (H) Discharge Disposition: Home or Self Care 05/23/2024 6:02 PM CDT Anesthesia Event [facility] PeriOp Services [address] [place] [address] Tom Castro MD Larson, Matthew Ray, MD 05/23/2024 6:00 PM CDT - 05/23/2024 7:00 PM CDT Surgery [facility] Services [address] [place] [address] Lizandro Barron MD Incision and drainage, debridement [...] mg by mouth every evening Active B Orqyhaa-O-Clmnk Acid (WESCAPS PO) Take 1 capsule by [...] Diagnosed Date Resolved Date Clotted dialysis access 08/03/2012 11/0 10/2011 ESRD (end stage renal disease) on [...] Answer Date Recorded Do you have housing? 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 Sexual Orientation Not on file Last Filed [...] 07/12/2024 6:00 AM CDT Plan of Treatment Not on file Medical Devices Implanted Type Area Set Up Mechanic Crown Assembly Machine Device Identifier Shelf Expiration Date Model / Serial / Lot Graft Patch Vasc Xenosure Biologic 0.8x08cm 0.8p8 Implanted:Qty: 1 on 12/16/2017 by Jaxon Saravia MD at [facility] Bone/Tis rocco/Biol ogic Left: Iliac/Fem orals LEMA[employer]RE VASC[employer] IN 06/06/2023 0.8P8 / / [id number] Graft Pericardium 8x0.8cm Vascu-Guard Implanted:Qty: 1 on 10/20/2011 at [facility] Right: Arm [employer] 01/16/2016 [id number] / / [id number] Femoral Popliteal Artery Implanted:Qty: 1 on 05/03/2012 by Jaxon Saravia MD at [facility] Right: Groin 12/07/2021 [id number] / [id number] / Description:CADAVER FEMORAL ARTERY RINSED IN A AND B SOLUTION: A SOLUTION LOT #[id number] EXPIRATION DATE 01/09/2014 B SOLUTION LOT #[id number] EXPIRATION DATE 11/15/2013 Graft Propaten Taper 4-5asa86gp [id number] Implanted:Qty: 1 on 08/09/2012 by Jaxon Saravia MD at [facility] Right: Leg 10/24/2015 [id number] / / [id number] Graft Propaten Taper 4-4voe52lw [id number] Implanted:Qty: 1 on 06/20/2013 by Jaxon Saravia MD at [facility] Left: Groin [employer] 02/07/2017 [id number] / / [id number] Graft Pericardium 8x0.8cm Vascu-Guard Implanted:Qty: 1 on 05/08/2014 by Jaxon Saravia MD at [facility] Left: Leg [employer] 11/26/2018 [id number] / PN# [id number] / [id number] Procol Vascular Bioprosthesis Implanted:Qty: 1 on 07/02/2015 by Jaxon Saravia MD at [facility] Left: Groin 12/16/2018 [id number] -[id number] / [id number] / Procol Vascular Bioprosthesis Implanted:Qty: 1 on 08/13/2015 by Jaxon Saravia MD at [facility] Left: Groin 12/16/2018 [id number] -[id number] / [id number] / Graft Vasc Bioprosthesis Procol [id number] Implanted:Qty: 1 on 03/05/2016 by Jaxno Saravia MD at [facility] Left: Leg [employer] VASC[employer] IN 02/03/2019 [id number] -[id number] / [id number] / Procedures Procedure [...] CDT LIPID PROFILE STAT 12/07/2017 12:34 PM OFFICE MACHINE INSPECTOR 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 Normal heart size and pulmonary vascularity. No pleural fluid or pneumothorax. Narrative 07/12/2024 3:18 AM CDT EXAM: XR CHEST 2 VIEWS LOCATION: [facility] DATE: 07/12/2024 INDICATION: ams COMPARISON: 03/11/2024. Procedure Note Pavan Sanon MD - 07/12/2024 EXAM: XR CHEST 2 VIEWS LOCATION: [facility] DATE: 07/12/2024 INDICATION: ams COMPARISON: 03/11/2024. 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 NECK CTA: 1. ??Normal configuration [...] CONTRAST, CTA HEAD NECK W CONTRAST LOCATION: [facility] DATE: 07/12/2024 INDICATION: ams and weakness. COMPARISON: [...] CONTRAST, CTA HEAD NECK W CONTRAST LOCATION: [facility] DATE: 07/12/2024 INDICATION: ams and weakness. COMPARISON: [...] vascular malformation involving the arteries of the [place]. NECK CTA: 1. Normal configuration of [...] 1:49 am on 07/12/2024. 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 NECK CTA: 1. ??Normal configuration [...] CONTRAST, CTA HEAD NECK W CONTRAST LOCATION: [facility] DATE: 07/12/2024 INDICATION: ams and weakness. COMPARISON: [...] CONTRAST, CTA HEAD NECK W CONTRAST LOCATION: [facility] DATE: 07/12/2024 INDICATION: ams and weakness. COMPARISON: [...] vascular malformation involving the arteries of the [place]. NECK CTA: 1. Normal configuration of [...] 1:49 am on 07/12/2024. Avery Fernando MD [facility] CT ORDERABLES * Extra Red Top Tube (07/12/2024 1:14 AM CDT) [facility] 07/12/2024 2:31 AM CDT [facility] LABORATORY Blood BLOOD SPECIMEN / Unknown Venipuncture / Unknown 07/12/2024 1:14 AM CDT 07/12/2024 1:23 AM CDT Avery Fernando MD LAB - BLOOD ORDERABL ES [facility] LABORATORY [facility] Acute Care Lab [address] Lab (1st floor, no room number) [place] [address] * (ABNORMAL) CBC with platelets and differential (07/12/2024 1:14 AM CDT) Only the most recent of4 resultswithin the time period is included. WBC Count 3.1(L) 4.0 - 11.0 10e3/uL [...] LAB - BLOOD ORDERABL ES [facility] LABORATORY [facility] Acute Care Lab [address] [facility] Lab (1st floor, no room number) [place] [address], [facility] * Adult Type and Screen (07/12/2024 1:14 AM CDT) Only the most recent of2 resultswithin the time period is included. ABO/RH(D) O POS 07/12/2024 1:01 AM CDT RH BLOOD BANK Antibody Screen Negative Negative 07/12/2024 1:01 AM CDT RH BLOOD BANK SPECIMEN EXPIRATION DATE [id number] 07/12/2024 1:01 AM CDT RH BLOOD BANK Blood BLOOD SPECIMEN / Unknown Venipuncture / Unknown 07/12/2024 1:14 AM CDT 07/12/2024 1:23 AM CDT Avery Fernando MD LAB - BLOOD BANK SHANNON T ORDER Performing Organization Address [facility]/ZIP Co de Phone Number BLOOD BANK [address] [place] [phone] [place] [address] * (ABNORMAL) INR (07/12/2024 1:14 AM CDT) Only the most recent of11 resultswithin the time period is included. INR 4.68(H) 0.85 - 1.15 07/12/2024 1:49 AM CDT LABORATORY Blood BLOOD SPECIMEN / Unknown Venipuncture / Unknown 07/12/2024 1:14 AM CDT 07/12/2024 1:23 AM CDT Avery Fernando MD LAB - BLOOD ORDERABL ES Performing Organization Address [facility] de Phone Number [facility] Lab [address] Lab (1st floor, no room number) [place] [phone] [place] [address] * Lactic acid whole blood (07/12/2024 1:14 AM CDT) Only the most recent of2 resultswithin the time period is included. Lactic Acid 0.8 0.7 - 2.0 mmol/L 07/12/2024 1:27 AM CDT LABORATORY Blood BLOOD SPECIMEN / Unknown Venipuncture / Unknown 07/12/2024 1:14 AM CDT 07/12/2024 1:23 AM CDT Avery Fernando MD LAB - BLOOD ORDERABL ES Performing Organization Address [facility]/ZIP Co de Phone Number [facility] Acute Care Lab [address] Lab (1st floor, no room number) [place] [phone] [place] [address] * Hepatic function panel (07/12/2024 1:14 AM CDT) Pathologist [facility] Protein Total 7.3 6.4 - 8.3 g/dL [...] MD LAB - BLOOD ORDERABL ES LABORATORY [facility] Acute Care Lab [address] [facility] Lab (1st floor, no room number) [place] [address], [facility] * (ABNORMAL) Basic metabolic panel (07/12/2024 1:14 AM CDT) Only the most recent of5 resultswithin the time period is included. Pathologist [facility] Sodium 133(L) 135 - 145 mmol/L 07/12/2024 [...] Fernando MD LAB - BLOOD ORDERABL ES [facility] Lab [address] Lab (1st floor, no room number) [place] [address] * (ABNORMAL) Glucose by meter (07/12/2024 1:13 AM CDT) Only the most recent of41 resultswithin the time period is included. [facility] GLUCOSE BY METER POCT 133(H) 70 - 99 mg/dL 07/12/2024 1:20 AM CDT LABORATORY POC Blood, venous BLOOD SPECIMEN / Unknown 07/12/2024 1:13 AM CDT 07/12/2024 1:20 AM CDT Avery Fernando MD LAB - BEAKER POCT LABORATORY [facility] Acute Care Lab [address] Lab (1st floor, no room number) [place] [address] * EKG 12-lead, tracing only (07/12/2024 12:24 AM CDT) Only the most recent of2 resultswithin the time period is included. Systolic Blood Pressure mmHg RADIOLOGY RESULTS Diastolic Blood Pressure mmHg RADIOLOGY RESULTS Ventricular Rate 65 BPM RAD IOLOGY RESULTS Atrial Rate 65 BPM RADIOLOG Y RESULTS NH Interval 234 ms RADIOLOG Y RESULTS QRS Duration 112 ms RADIOLO GY RESULTS QT 430 ms RADIOLOGY RESULTS QTc 447 ms RADIOLOGY RESULTS P [place] 53 degrees RADIOLOGY RESULTS R AXIS 10 degrees RADIOLOGY RESULTS T [place] 51 degrees RADIOLOGY RESULTS Interpretation ECG Sinus rhythm with 1st degree A-V block Otherwise normal ECG When compared with ECG of 23-May-2024 17:08, Criteria for Septal infarct are no longer Present Unconfirmed report - interpretation of this ECG is computer generated - see medical record for final interpretation Confirmed by - EMERGENCY ROOM, PHYSICIAN ([id number]), design editor YISSEL VELASQUEZ ([id number]) on 07/12/2024 6:51:31 AM RADIOLOGY RESULTS 07/12/2024 [...] MD LAB - BLOOD ORDERABL ES LABORATORY [facility] Acute Care Lab [address] Lab (1st floor, no room number) [place] [phone] * Extra Green Top Tube (LAB USE ONLY) (05/28/2024 6:07 AM CDT) Only the most recent of2 resultswithin the time period is included. Hold Specimen [facility] 05/28/2024 7:32 AM CDT RH LABORATORY Blood STRUCTURE OF LEFT HAND / Unknown Venipuncture / Unknown 05/28/2024 6:07 AM CDT 05/28/2024 6:17 AM CDT Antonino Cheek MD LAB - BLOOD ORDERABL ES LABORATORY [facility] Acute Care Lab [address] Lab (1st floor, no room number) [place] [address] * Extra Purple Top EDTA (LAB USE ONLY) (05/28/2024 6:07 AM CDT) Only the most recent of2 resultswithin the time period is included. Hold Specimen [facility] 05/28/2024 7:32 AM CDT RH LABORATORY Blood STRUCTURE OF LEFT HAND / Unknown Venipuncture / Unknown 05/28/2024 6:07 AM CDT 05/28/2024 6:17 AM CDT Antonino Cheek MD LAB - BLOOD ORDERABL ES [facility] Acute Care Lab [address] Lab (1st floor, no room number) [place] [address] * (ABNORMAL) Hemoglobin (05/28/2024 6:07 AM CDT) Hemoglobin 7.7(L) 13.3 - 17.7 g/dL 05/28/2024 9:02 AM CDT LABORATORY Blood STRUCTURE OF LEFT HAND / Unknown Venipuncture / Unknown 05/28/2024 6:07 AM CDT 05/28/2024 6:17 AM CDT Dileep Anders MD LAB - BLOOD ORD ERABLES [facility] Acute Care Lab [address] Lab (1st floor, no room number) [place] [address], [facility] * Vancomycin level (05/25/2024 2:04 PM CDT) Vancomycin 11.9 ug/mL 05/25/2024 3:28 PM CDT LABORATORY Comment: Traditional Dosing Therapeutic Range: Trough 10-15 ug/mL Peak 20-40 ug/mL Critical: Greater than 25.0 ug/mL Blood STRUCTURE OF RIGHT UPPER LIMB / Unknown Venipuncture / Unknown 05/25/2024 2:04 PM CDT 05/25/2024 2:07 PM CDT Antonino Cheek MD LAB - BLOOD ORDERABL ES [facility] Acute Care Lab [address] Lab (1st floor, no room number) [place] [address], [facility] * Hepatitis B Surface Antibody (05/25/2024 9:25 AM CDT) Pathologist [facility] Hepatitis B Surface Antibody Reactive 05/25/2024 2:27 [...] - BLOOD ORDERABL ES Performing Organization Address [facility] Co de Phone Number LABORATORY [facility] [place] [facility] [address] [place] [address], [address] * Hepatitis B surface antigen (05/25/2024 9:25 AM CDT) [facility] Hepatitis B Surface Antigen Nonreactive Nonreactive 05/25/2024 2:23 PM CDT [facility] LABORATORY Blood BLOOD SPECIMEN / Unknown Venipuncture / Unknown 05/25/2024 9:25 AM CDT 05/25/2024 10:13 AM CDT Jose Enrique Naylor MD LAB - BLOOD ORDERABL ES Performing Organization Address City/State/[facility] Co de Phone Number LABORATORY [facility] [place] [facility] [address] [facility] [address] * (ABNORMAL) Comprehensive metabolic panel (05/24/2024 6:09 AM CDT) Only the most recent of2 resultswithin the time period is included. [facility] Sodium 131(L) 135 - 145 mmol/L 05/24/2024 [...] Cheek MD LAB - BLOOD ORDERABL ES [facility] Acute Care Lab [address] Lab (1st floor, no room number) [place] [address], [facility] * (ABNORMAL) Tissue Aerobic Bacterial Culture Routine [...] JOJO <=1 ug/mL: Susceptible Morganella morganii Ciprofloxacin JOOJ <=0.25 ug/mL: Susceptible Morganella morganii Levofloxacin JOJO [...] GENERAL ORDERABLES [facility] ID[facility] LABORATORY [facility] Inf. Diseases Diag. Lab [address] [facility], [address] [place] [address] * (ABNORMAL) Gram Stain (05/23/2024 6:42 PM CDT) [facility] GS Culture See corresponding culture for results [...] GENERAL ORDERABLES [facility] LABORATORY [facility] Inf. Diseases Diag. Lab [address] [facility], [address] [place], [place] [address] * Anaerobic Bacterial Culture Routine (05/23/2024 6:42 PM CDT) Culture 4+ Mixed Aerobic and Anaerobic dev JOJO 05/25/2024 2:01 PM CDT [facility] IDD LABORATORY Comment:No predominant organ ism Tissue SCROTAL STRUCTURE / Unknown Non-blood Collection / Unknown 05/23/2024 6:42 PM CDT 05/23/2024 6:46 PM CDT Lizandro Barron MD LAB - MICRO GENERAL ORDERABLES [facility] LABORATORY [facility] Inf. Diseases Diag. Lab [address] [facility], Room [place] [phone] * ANE AIRWAY ETT PERFORMABLE (05/23/2024 6:21 PM CDT) Narrative Donnell Ramos APRN CAFETERIA HELPER - 05/23/2024 6:21 PM CDT Donnell Ramos APRN CAFETERIA HELPER ? 05/23/2024 ??6:33 PM Airway ? Patient location during procedure: OR ? Procedure Start/Stop Times: 05/23/2024 6:21 PM Staff - ? CAFETERIA HELPER: Yasemin Almaguer APRN CAFETERIA HELPER ? Performed By: CRNAIndications and Patient Condition [...] Time: 05/23/2024 6:21 PM Tom Castro MD [place] ANESTHESIA * CT Abdomen Pelvis w Contrast [...] 2:35 PM. MIKE SANTANA MD SYSTEM ID: ??[id number] Narrative 05/23/2024 2:[address] ABDOMEN [...] veins which are not included in the [id number]-er-jgqn. MUSCULOSKELETAL: Stable degenerative changes at L4-L5 with [...] veins which are not included in the ypgmp-rl-nera. 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 No destructive lesions in the bones. IMPRESSION: 1. 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 2. Other chronic findings as discussed above. Findings were discussed with Dr. Kenna Coe at 2:35 PM. MIKE SANTANA MD SYSTEM ID: [id number] Vi oCe DO IMG CT ORDERABLE S * Blood Culture Peripheral Blood (05/23/2024 1:50 PM CDT) Culture No Growth 05/28/2024 4:06 PM CDT [facility] LABORATORY Blood BLOOD SPECIMEN / Unknown Venipuncture / Unknown 05/23/2024 1:50 PM CDT 05/23/2024 1:53 PM CDT Vi Kenna Coe DO LAB - MICRO GENE RAL ORDERABLES [facility] LABORATORY [facility] Inf. Diseases Diag. Lab [address] [facility], [address] [place] [address] * (ABNORMAL) Renal panel [...] Eileen Earl MD LAB - BLOOD UBALDO CARTER LABORATORY [facility] Acute Care Lab [address] [facility] Lab (1st floor, no room number) [place] [address] * COLONOSCOPY (03/08/2024 1:04 PM CDT) [facility] COLONOSCOPY [facility] Patient Name: Herminio [...] continuously. The ?Olympus Adult Colonoscope, Model # [id number], ?Censitrac # [id number] was introduced through the ?anus and advanced [...] Note Initiated On: 03/08/2024 1:04 PM MRN: ?[id number] Procedure Date: ? 03/08/2024 1:04:50 PM Scope [...] MD LAB - STOOLS ORDERAB LES LABORATORY [facility] Acute Care Lab [address] Lab (1st floor, no room number) [place] [address] * Hepatitis C (HIM External Result) (01/04/2022 12:00 PM CDT) Hep C HIM See Scanned Document EXTERNAL LAB Comment:Nonreactive 01/04/2022 12:0 0 PM CDT Narrative EXTERNAL LAB - 01/04/2022 12:00 PM CDT LAB RESULT [facility] [address] [place] [address] Provider Outside LAB - HIM EXTERNAL R ESULT Performing Organization Address City/[facility]/ZIP Co de Phone Number EXTERNAL LAB External Lab * (ABNORMAL) Lipid panel (12/07/2017 12:34 PM OFFICE MACHINE INSPECTOR) Cholesterol 115 <200 mg/dL 12/07/2017 1:27 PM [facility] Triglycerides 84 <150 mg/dL 12/07/2017 1:27 PM [facility] HDL Cholesterol 37(L) >39 mg/dL 8 1:27 PM [facility] LDL Cholesterol Calculated 61 <100 mg/dL 12/07/2017 1:27 PM [facility] Comment:Desirable: <100 mg/d l Non HDL Cholesterol 78 <130 mg/dL 12/07/2017 1:27 PM [facility] Blood specimen (specimen) 12/07/2017 12:34 PM OFFICE MACHINE INSPECTOR 12/07/2017 12:58 PM OFFICE MACHINE INSPECTOR Michele Fuentes MD LAB - BLOOD ORD ERABLES [facility] [address] [place] [address], [facility] [phone] from Last 3 Months or Most Recently Relevant to Health Maintenance Advance Directives For more information, please contact: [phone] * Full Code (Latest Code Status on [...] Code status determined by: Discussion with davidson nt/ legal decision maker * Full Code Date Activated Date Inactivated Comments 03/02/2024 6:55 PM 03/12/2024 6:41 PM All basic and advanced life-sustaining interventions are performed as appropriate Question Answer Comments Code status determined by: Discussion with davidson nt/ legal decision maker * Full Code Date Activated Date Inactivated Comments 02/24/2024 2:16 PM 02/26/2024 5:36 PM All basic an d advanced life-sustaining interventions are performed as appropriate Question Answer Comments Code status determined by: Discussion with patie nt/ legal decision maker * Full Code Date Activated Date Inactivated Comments 01/26/2018 12:25 PM 01/25/2019 11:45 AM Care Teams Artillery Meteorological Man Relationship Specialty Start Date End Date Preet Huff PCP - General 06/24/11
--- OUTSIDE RECORDS SUMMARY | 2024-07-15 14:28 | XMS_ITS | Encounter Summary ---
Author Organization [place] Address [address] [facility] 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
--- OUTSIDE RECORDS SUMMARY | 2024-07-15 14:29 | XMS_ITS | Encounter Summary ---
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 No destructive lesions in the bones. IMPRESSION: 1. 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 2. Other chronic findings as discussed above. Findings were discussed with Dr. Kenna Coe at 2:35 PM. MIKE LIPSCOMB MD SYSTEM ID: [id number] Associated attestation - Lizandro Barron MD - 05/23/2024 6:06 PM CDT Physician Attestation I saw and evaluated Herminio Victor as part of a shared SOFTWARE TECHNICIAN/PA visit. I personally reviewed the vital [...] Morel RN - 05/23/2024 4:59 PM CDT [facility] ED Nurse Handoff Report ED [...] 2. Lift room needed: No. Bariatric: No National Facilities Manager Needed: No Isolation: No. Infection: Not [...] POS Antibody Screen Negative SPECIMEN EXPIRATION DATE [id number] BLOOD CULTURE ABO/RH TYPE AND SCREEN CT Abdomen Pelvis w Contrast Final Result IMPRESSION: 1. 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 2. Other chronic findings as discussed above. Findings were discussed with Dr. Kenna Coe at 2:35 PM. MIKE LIPSCOMB MD SYSTEM ID: [id number] Treatments provided: See MAR Family Comments: family [...] POS Antibody Screen Negative SPECIMEN EXPIRATION DATE [id number] BLOOD CULTURE ABO/RH TYPE AND SCREEN Imaging CT Abdomen Pelvis w Contrast Final Result IMPRESSION: 1. 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 2. Other chronic findings as discussed above. Findings were discussed with Dr. Kenna Coe at 2:35 PM. MIKE LIPSCOMB MD SYSTEM ID: [id number] Independent Interpretation None ED Course Medications Administered [...] intermittent infusion (10mg Intravenous $New Bag 05/23/24 7498) prothrombin 4 factor complex concentrate (KCENTRA) infusion 4,156 Units (4,156 Units Intravenous $Given 05/23/24 1354) Procedures Procedures Discussion of Management Urology, Poppy [...] care. [address] Cheek [facility] who accepts 8349 Arianna Goodman (Mother) [phone] (Home Phone) Updated mom Additional Documentation None Medical Decision Making / Diagnosis [facility] Diagnoses: None MIPS None MDM Herminio [...] Expected time: Means of arrival: Ambulance Comments: [place] 332 documented in this encounter Miscellaneous Notes [...] progress ADL tolerance. Pt not seen by global technical writer on this date, note written based [...] mobility. * Pharmacy-Anticoagulation Service - Joni Steel [facility] - 05/30/2024 3:00 PM CDT Images from the original note were not included. 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 Pertinent assessments: Assumed cares @ [phone].Disoriented to situation and time. VSS on RA. [...] Flowsheet Documentation Taken 05/27/2024919 by Edie Pack RNbutter maker Interventions: declines Goal: Readiness for Transition of [...] documentation flowsheets. Pertinent assessments: Assumed cares @ [phone].Disoriented to time and situation. VSS on RA. [...] shift note. Outcome: Progressing Flowsheets (Taken 05/27/2024 07) Outcome Evaluation: Denies pain. tolerated renal diet. [...] Activity Management: bedrest * Pharmacy-Anticoagulation Service - Tobias Luis [facility] - 05/26/2024 4:50 PM CDT Clinical Pharmacy - Warfarin Dosing Consult Pharmacy has been consulted to manage this patient???s warfarin therapy. Indication: DVT/PE Prophylaxis Therapy Goal: INR 2-3 Warfarin Prior to Admission: Yes Warfarin BRIM STIFFENER Regimen: 5 mg M-F and No dose [...] Flowsheet Documentation Taken 05/25/20242021 by Derek Shafer, LINDA Safety Promotion/Fall Prevention: assistive device/personal items within [...] Flowsheet Documentation Taken 05/25/2024 0910 by Jessica aPz RN VTE Prevention/Management: SCDs off (sequential compression [...] * Pharmacy-Vancomycin Dosing Service - Chucho Zuluaga [facility] - 05/25/2024 3:31 PM CDT Pharmacy [...] Shift Events Weaned to RA Treatment Plan: Erica Pimentel, wound care and HD Bedside Nurse: Marce [...] shift note. Outcome: Progressing Flowsheets (Taken 05/24/2024 7638) Outcome Evaluation: Scrotal dressing changed twice. Did [...] Fall Risk Recent Flowsheet Documentation Taken 05/24/2024 0911 by Jessica Paz RN Safety Promotion/Fall Prevention: [...] member and Thelma (aunt) via phone and [phone] Pertinent Information: outside meds--none added Changes made to BRIM STIFFENER medication list: Added: none Deleted: norvasc, lipitor, Changed: protonix Allergies reviewed with patient and updates made in EHR: yes Medication History Completed By: Graham Joseph RPH 05/23/2024 9:51 PM BRIM STIFFENER Med List Medication Sig Last Dose B Dzclzor-H-Hgldk Acid (WESCAPS PO) Take 1 capsule by [...] * Pharmacy-Vancomycin Dosing Service - John Rosado [facility] - 05/23/2024 9:03 PM CDT Pharmacy [...] and procedure to be performed. A 16 Korean coud?? catheter was placed through the urethra, [...] in stable condition. Lizandro Barron MD Urology [facility] documented in this encounter Plan of Treatment Scheduled Referrals Name Type Priority Associated Diagnoses Orde r Schedule Home Care Referral Referral Routine: Next available opening Jose's gangrene of scrotum (H) Ordered: 05/30/2024 documented as of this encounter [...] CDT Supratherapeutic INR Jose's gangrene of scrotum (H) GLUCOSE BY METER [...] 05/30/2024 1:46 PM CDT Antonino DEAN - DAVID POCT LABORATORY [facility] [address] Lab (1st floor, no room number) [place] [phone] [place] [address] * Glucose by meter (05/30/2024 7:13 AM CDT) GLUCOSE BY METER POCT 82 70 - 99 mg/dL 05/30/2024 7:19 AM CDT LABORATORY POC Blood, Capillary BLOOD SPECIMEN / Unknown 05/30/2024 7:13 AM CDT 05/30/2024 7:19 AM CDT Antonino DEAN - BEXIANG POCT LABORATORY [facility] [address] Lab (1st floor, no room number) [place] [phone] [place] [address] * (ABNORMAL) INR (05/30/2024 6:54 AM CDT) INR 2.26(H) 0.85 - 1.15 05/30/2024 7:20 AM CDT LABORATORY Blood STRUCTURE OF RIGHT HAND / Unknown Venipuncture / Unknown 05/30/2024 6:54 AM CDT 05/30/2024 7:06 AM CDT Antonino Cheek MD LAB - BLOOD ORDERABL ES LABORATORY [facility] [address] Lab (1st floor, no room number) [place] [address] * (ABNORMAL) Basic metabolic panel (05/30/2024 6:54 AM CDT) Pathologist [facility] Sodium 133(L) 135 - 145 mmol/L 05/30/2024 7:29 AM CDT LABORATORY Potassium 4.6 3.4 - 5.3 mmol/L 05/30/2024 7:29 AM T LABORATORY Chloride 97(L) 98 - 107 mmol/L [...] 7:29 AM CDT LABORATORY Comment:eGFR calculated usin g [...] LAB - BLOOD ORDERABL ES RH LABORATORY [facility] [address] Lab (1st floor, no room number) [place] [address] * (ABNORMAL) CBC with platelets (05/30/2024 [...] - BLOOD ORDERABL ES Performing Organization Address [facility]/ZIP Co de Phone Number [facility] [address] Lab (1st floor, no room number) [address] [place] [address] * (ABNORMAL) Glucose by meter (05/30/2024 2:18 AM CDT) GLUCOSE BY METER POCT 138(H) 70 - 99 mg/dL 05/30/2024 2:24 AM CDT RH LABORATORY POC Blood, Capillary BLOOD SPECIMEN / Unknown 05/30/2024 2:18 AM CDT 05/30/2024 2:24 AM CDT Antonino DEAN - BEAKER POCT Performing Organization Address [facility]/ZIP Co de Phone Number LABORATORY [facility] Lab [address] Lab (1st floor, no room number) [address] [place] [address] * (ABNORMAL) Glucose by meter (05/29/2024 9:28 PM CDT) GLUCOSE BY METER POCT 160(H) 70 - 99 mg/dL 05/29/2024 9:35 PM CDT LABORATORY POC Blood, Capillary BLOOD SPECIMEN / Unknown 05/29/2024 9:28 PM CDT 05/29/2024 9:35 PM CDT Antonino DEAN - BEAKER POCT Performing Organization Address [facility]/ZIP Co de Phone Number LABORATORY [facility] [address] Lab (1st floor, no room number) [address] [place] [address] * (ABNORMAL) Glucose by meter (05/29/2024 5:54 PM CDT) GLUCOSE BY METER POCT 159(H) 70 - 99 mg/dL 05/29/2024 6:01 PM CDT RH LABORATORY POC Blood, Capillary BLOOD SPECIMEN / Unknown 05/29/2024 5:54 PM CDT 05/29/2024 6:01 PM CDT Antonino Cheek MD LAB - BEAKER POCT LABORATORY [facility] Lab [address] Lab (1st floor, no room number) [place] [phone] [place] [address] * (ABNORMAL) Glucose by meter (05/29/2024 1:41 PM CDT) GLUCOSE BY METER POCT 158(H) 70 - 99 mg/dL 05/29/2024 1:48 PM CDT RH LABORATORY POC Blood, Capillary BLOOD SPECIMEN / Unknown 05/29/2024 1:41 PM CDT 05/29/2024 1:48 PM CDT Antonino Cheek MD LAB - BEAKER POCT Performing Organization Address City/[facility]/ZIP Co de Phone Number LABORATORY [facility] [address] Lab (1st floor, no room number) [place] [address] * Glucose by meter (05/29/2024 7:54 AM CDT) GLUCOSE BY METER POCT 90 70 - 99 mg/dL 05/29/2024 8:01 AM CDT RH LABORATORY POC Blood, Capillary BLOOD SPECIMEN / Unknown 05/29/2024 7:54 AM CDT 05/29/2024 8:01 AM CDT Antonino Cheek MD LAB - BEAKER POCT LABORATORY [facility] [address] Lab (1st floor, no room number) [place] [phone] [place] [address] * (ABNORMAL) INR (05/29/2024 6:22 AM CDT) INR 1.92(H) 0.85 - 1.15 05/29/2024 6:52 AM CDT RH LABORATORY Blood STRUCTURE OF RIGHT HAND / Unknown Venipuncture / Unknown 05/29/2024 6:22 AM CDT 05/29/2024 6:40 AM CDT Antonino Cheke MD LAB - BLOOD ORDERABL ES RH LABORATORY [facility] Lab [address] Lab (1st floor, no room number) [place] [address] * (ABNORMAL) Basic metabolic panel (05/29/2024 [...] LAB - BLOOD ORDERABL ES RH LABORATORY [facility] [address] Lab (1st floor, no room number) [place] [address] * (ABNORMAL) CBC with platelets (05/29/2024 [...] LAB - BLOOD ORDERABL ES RH LABORATORY [facility] [address] Lab (1st floor, no room number) [address] [place] [address] * (ABNORMAL) Glucose by meter (05/29/2024 2:26 AM CDT) GLUCOSE BY METER POCT 103(H) 70 - 99 mg/dL 05/29/2024 2:33 AM CDT RH LABORATORY POC Blood, Capillary BLOOD SPECIMEN / Unknown 05/29/2024 2:26 AM CDT 05/29/2024 2:33 AM CDT Antonino Cheek MD LAB - BEAKER POCT LABORATORY [facility] [address] Lab (1st floor, no room number) [address] * (ABNORMAL) Glucose by meter (05/28/2024 9:50 PM CDT) GLUCOSE BY METER POCT 102(H) 70 - 99 mg/dL 05/28/2024 9:56 PM CDT LABORATORY POC Blood, Capillary BLOOD SPECIMEN / Unknown 05/28/2024 9:50 PM CDT 05/28/2024 9:56 PM CDT Antonino Cheek MD LAB - BEAKER POCT LABORATORY [facility] [address] Lab (1st floor, no room number) [address] * (ABNORMAL) Glucose by meter (05/28/2024 5:08 PM CDT) GLUCOSE BY METER POCT 254(H) 70 - 99 mg/dL 05/28/2024 5:16 PM CDT LABORATORY POC Blood, Capillary BLOOD SPECIMEN / Unknown 05/28/2024 5:08 PM CDT 05/28/2024 5:16 PM CDT Antonino DEAN - BEAKER POCT LABORATORY [facility] Lab [address] Lab (1st floor, no room number) [place] [phone] [place] [address] * Glucose by meter (05/28/2024 1:58 PM CDT) GLUCOSE BY METER POCT 91 70 - 99 mg/dL 05/28/2024 2:05 PM CDT RH LABORATORY POC Blood, Capillary BLOOD SPECIMEN / Unknown 05/28/2024 1:58 PM CDT 05/28/2024 2:05 PM CDT Antonino Cheek MD LAB - BEXIANG POCT Performing Organization Address [facility]/ZIP Co de Phone Number LABORATORY [facility] [address] Lab (1st floor, no room number) [place] [phone] [place] [address] * (ABNORMAL) Glucose by meter (05/28/2024 7:48 AM CDT) GLUCOSE BY METER POCT 128(H) 70 - 99 mg/dL 05/28/2024 7:54 AM CDT LABORATORY POC Blood, Capillary BLOOD SPECIMEN / Unknown 05/28/2024 7:48 AM CDT 05/28/2024 7:54 AM CDT Antonino DEAN - DAVID POCT LABORATORY [facility] Lab [address] Lab (1st floor, no room number) [place] [phone], [place] * Extra Purple Top EDTA (LAB USE ONLY) (05/28/2024 6:07 AM CDT) Hold Specimen JIC 05/28/2024 7:32 AM CDT RH LABORATORY Blood STRUCTURE OF LEFT HAND / Unknown Venipuncture / Unknown 05/28/2024 6:07 AM CDT 05/28/2024 6:17 AM CDT Antonino Cheek MD LAB - BLOOD ORDERABL ES Performing Organization Address City/[facility]/ZIP Co de Phone Number [facility] [address] Lab (1st floor, no room number) [place] [phone] [place] [address] * Extra Green Top Tube (LAB USE ONLY) (05/28/2024 6:07 AM CDT) Hold Specimen JIC 05/28/2024 7:32 AM CDT RH LABORATORY Blood STRUCTURE OF LEFT HAND / Unknown Venipuncture / Unknown 05/28/2024 6:07 AM CDT 05/28/2024 6:17 AM CDT Antonino Cheek MD LAB - BLOOD ORDERABL ES Performing Organization Address [facility]/ZIP Co de Phone Number [facility] [address] Lab (1st floor, no room number) [place] [phone] [place] [address] * (ABNORMAL) INR (05/28/2024 6:07 AM CDT) INR 1.87(H) 0.85 - 1.15 05/28/2024 6:27 AM CDT RH LABORATORY Blood STRUCTURE OF LEFT HAND / Unknown Venipuncture / Unknown 05/28/2024 6:07 AM CDT 05/28/2024 6:17 AM CDT Antonino Cheek MD LAB - BLOOD ORDERABL ES [facility] [address] Lab (1st floor, no room number) [place] [phone] [place] [address] * (ABNORMAL) Hemoglobin (05/28/2024 6:07 AM CDT) Hemoglobin 7.7(L) 13.3 - 17.7 g/dL 05/28/2024 9:02 AM CDT RH LABORATORY Blood STRUCTURE OF LEFT HAND / Unknown Venipuncture / Unknown 05/28/2024 6:07 AM CDT 05/28/2024 6:17 AM CDT Dileep Anders MD LAB - BLOOD ORD ERABLES LABORATORY [facility] [address] [facility] Lab (1st floor, no room number) [place] [address] * (ABNORMAL) Basic metabolic panel (05/28/2024 [...] MD LAB - BLOOD ORD ERABLES LABORATORY [facility] [address] Lab (1st floor, no room number) [place] [address] * (ABNORMAL) Glucose by meter (05/28/2024 2:19 AM CDT) GLUCOSE BY METER POCT 102(H) 70 - 99 mg/dL 05/28/2024 2:26 AM CDT LABORATORY POC Blood, Capillary BLOOD SPECIMEN / Unknown 05/28/2024 2:19 AM CDT 05/28/2024 2:26 AM CDT Antonino DEAN - BEAKER POCT LABORATORY [facility] [address] Lab (1st floor, no room number) [place] [address], [place] * (ABNORMAL) Glucose by meter (05/27/2024 9:05 PM CDT) GLUCOSE BY METER POCT 148(H) 70 - 99 mg/dL 05/27/2024 9:13 PM CDT LABORATORY POC Blood, Capillary BLOOD SPECIMEN / Unknown 05/27/2024 9:05 PM CDT 05/27/2024 9:13 PM CDT Antonino DEAN - BEXIANG POCT LABORATORY [facility] [address] Lab (1st floor, no room number) [place] [phone], [place] * (ABNORMAL) Glucose by meter (05/27/2024 5:11 PM CDT) GLUCOSE BY METER POCT 148(H) 70 - 99 mg/dL 05/27/2024 5:20 PM CDT RH LABORATORY POC Blood, Capillary BLOOD SPECIMEN / Unknown 05/27/2024 5:11 PM CDT 05/27/2024 5:20 PM CDT Antonino Cheek MD LAB - BEAKER POCT LABORATORY [facility] [address] Lab (1st floor, no room number) [place] [address] * (ABNORMAL) Glucose by meter (05/27/2024 11:42 AM CDT) GLUCOSE BY METER POCT 149(H) 70 - 99 mg/dL 05/27/2024 11:49 AM CDT RH LABORATORY POC Blood, Capillary BLOOD SPECIMEN / Unknown 05/27/2024 11:42 AM CDT 05/27/2024 11:49 AM CDT Antonino Cheek MD LAB - BEAKER POCT Performing Organization Address City/[facility]/ZIP Co de Phone Number LABORATORY [facility] [address] Lab (1st floor, no room number) [place] [address] * (ABNORMAL) Glucose by meter (05/27/2024 7:44 AM CDT) GLUCOSE BY METER POCT 108(H) 70 - 99 mg/dL 05/27/2024 7:51 AM CDT RH LABORATORY POC Blood, Capillary BLOOD SPECIMEN / Unknown 05/27/2024 7:44 AM CDT 05/27/2024 7:51 AM CDT Antonino Cheek MD LAB - BEAKER POCT LABORATORY [facility] [address] Lab (1st floor, no room number) [address] * (ABNORMAL) INR (05/27/2024 7:03 AM CDT) INR 1.81(H) 0.85 - 1.15 05/27/2024 7:17 AM CDT LABORATORY Blood STRUCTURE OF RIGHT HAND / Unknown Venipuncture / Unknown 05/27/2024 7:03 AM CDT 05/27/2024 7:07 AM CDT Antonino Cheek MD LAB - BLOOD ORDERABL ES LABORATORY [facility] [address] [place] Lab (1st floor, no room number) [address] * (ABNORMAL) Glucose by meter (05/27/2024 2:03 AM CDT) GLUCOSE BY METER POCT 157(H) 70 - 99 mg/dL 05/27/2024 2:10 AM CDT LABORATORY POC Blood, Capillary BLOOD SPECIMEN / Unknown 05/27/2024 2:03 AM CDT 05/27/2024 2:10 AM CDT Antonino Cheek MD LAB - BEAKER POCT Performing Organization Address City/[facility]/ZIP Co de Phone Number LABORATORY POC [facility] Lab [address] Lab (1st floor, no room number) [address] * (ABNORMAL) Glucose by meter (05/26/2024 9:29 PM CDT) GLUCOSE BY METER POCT 155(H) 70 - 99 mg/dL 05/26/2024 9:37 PM CDT LABORATORY POC Blood, Capillary BLOOD SPECIMEN / Unknown 05/26/2024 9:29 PM CDT 05/26/2024 9:37 PM CDT Antonino Cheek MD LAB - BEAKER POCT LABORATORY [facility] Lab [address] Lab (1st floor, no room number) [place] [phone] [place] [address] * (ABNORMAL) Glucose by meter (05/26/2024 4:10 PM CDT) GLUCOSE BY METER POCT 174(H) 70 - 99 mg/dL 05/26/2024 4:19 PM CDT RH LABORATORY POC Blood, Capillary BLOOD SPECIMEN / Unknown 05/26/2024 4:10 PM CDT 05/26/2024 4:19 PM CDT Antonino Cheek MD LAB - BEAKER POCT Performing Organization Address [facility]/ZIP Co de Phone Number LABORATORY [facility] [address] Lab (1st floor, no room number) [place] [phone] [place] [address] * (ABNORMAL) INR (05/26/2024 4:09 PM CDT) INR 1.67(H) 0.85 - 1.15 05/26/2024 4:28 PM CDT LABORATORY Blood STRUCTURE OF LEFT UPPER LIMB / Unknown Venipuncture / Unknown 05/26/2024 4:09 PM CDT 05/26/2024 4:15 PM CDT Antonino Cheek MD LAB - BLOOD ORDERABL ES Performing Organization Address [facility]/ZIP Co de Phone Number [facility] [address] Lab (1st floor, no room number) [place] [phone] * (ABNORMAL) Glucose by meter (05/26/2024 11:37 AM CDT) GLUCOSE BY METER POCT 197(H) 70 - 99 mg/dL 05/26/2024 11:44 AM CDT RH LABORATORY POC Blood, Capillary BLOOD SPECIMEN / Unknown 05/26/2024 11:37 AM CDT 05/26/2024 11:44 AM CDT Antonino Cheek MD LAB - BEAKER POCT LABORATORY [facility] [address] Lab (1st floor, no room number) [place] [address] * Glucose by meter (05/26/2024 8:22 AM CDT) GLUCOSE BY METER POCT 85 70 - 99 mg/dL 05/26/2024 8:29 AM CDT RH LABORATORY POC Blood, Capillary BLOOD SPECIMEN / Unknown 05/26/2024 8:22 AM CDT 05/26/2024 8:29 AM CDT Antonino Cheek MD LAB - BEAKER POCT Performing Organization Address City/[facility]/ZIP Co de Phone Number LABORATORY [facility] Lab [address] Lab (1st floor, no room number) [place] [phone] * (ABNORMAL) CBC with platelets and [...] LAB - BLOOD ORDERABL ES RH LABORATORY [facility] [address] Lab (1st floor, no room number) [place] [address], [place] * (ABNORMAL) Basic metabolic panel (05/26/2024 [...] MD LAB - BLOOD ORDERABL ES LABORATORY [facility] [address] Lab (1st floor, no room number) [place] [phone] * (ABNORMAL) Glucose by meter (05/26/2024 1:57 AM CDT) GLUCOSE BY METER POCT 123(H) 70 - 99 mg/dL 05/26/2024 2:04 AM CDT RH LABORATORY POC Blood, Capillary BLOOD SPECIMEN / Unknown 05/26/2024 1:57 AM CDT 05/26/2024 2:04 AM CDT Antonino Cheek MD LAB - BEAKER POCT Performing Organization Address City/[facility]/ZIP Co de Phone Number LABORATORY [facility] [address] [employer] Lab (1st floor, no room number) [address] * (ABNORMAL) Glucose by meter (05/25/2024 9:32 PM CDT) GLUCOSE BY METER POCT 155(H) 70 - 99 mg/dL 05/25/2024 9:39 PM CDT LABORATORY POC Blood, Capillary BLOOD SPECIMEN / Unknown 05/25/2024 9:32 PM CDT 05/25/2024 9:39 PM CDT Antonino Cheek MD LAB - BEAKER POCT Performing Organization Address [facility]/[place] Co de Phone Number LABORATORY [facility] Lab [address] Lab (1st floor, no room number) [address] * (ABNORMAL) Glucose by meter (05/25/2024 7:06 PM CDT) GLUCOSE BY METER POCT 183(H) 70 - 99 mg/dL 05/25/2024 7:14 PM CDT LABORATORY POC Blood, Capillary BLOOD SPECIMEN / Unknown 05/25/2024 7:06 PM CDT 05/25/2024 7:14 PM CDT Antonino Cheek MD LAB - BEAKER POCT LABORATORY POC [facility] Lab [address] Lab (1st floor, no room number) [place] [phone] * (ABNORMAL) Glucose by meter (05/25/2024 5:29 PM CDT) GLUCOSE BY METER POCT 142(H) 70 - 99 mg/dL 05/25/2024 5:36 PM CDT LABORATORY POC Blood, Capillary BLOOD SPECIMEN / Unknown 05/25/2024 5:29 PM CDT 05/25/2024 5:36 PM CDT Antonino Cheek MD LAB - BEAKER POCT Performing Organization Address [facility]/ZIP Co de Phone Number LABORATORY [facility] Lab [address] Lab (1st floor, no room number) [place] [phone] * Vancomycin level (05/25/2024 2:04 PM CDT) Vancomycin 11.9 ug/mL 05/25/2024 3:28 PM CDT RH LABORATORY Comment: Traditional Dosing Therapeutic Range: Trough 10-15 ug/mL Peak 20-40 ug/mL Critical: Greater than 25.0 ug/mL Blood STRUCTURE OF RIGHT UPPER LIMB / Unknown Venipuncture / Unknown 05/25/2024 2:04 PM CDT 05/25/2024 2:07 PM CDT Antonino Cheek MD LAB - BLOOD ORDERABL ES Performing Organization Address [facility]/ZIP Co de Phone Number LABORATORY [facility] Lab [address] Lab (1st floor, no room number) [place] [phone] * Extra Purple Top EDTA (LAB USE ONLY) (05/25/2024 2:04 PM CDT) Hold Specimen JIC 05/25/2024 3:17 PM CDT LABORATORY Blood STRUCTURE OF RIGHT UPPER LIMB / Unknown Venipuncture / Unknown 05/25/2024 2:04 PM CDT 05/25/2024 2:07 PM CDT Antonino Cheek MD LAB - BLOOD ORDERABL ES [facility] Lab [address] Lab (1st floor, no room number) [place] [address], [place] * Extra Green Top Tube (LAB USE ONLY) (05/25/2024 2:04 PM CDT) Hold Specimen JIC 05/25/2024 3:17 PM CDT LABORATORY Blood STRUCTURE OF RIGHT UPPER LIMB / Unknown Venipuncture / Unknown 05/25/2024 2:04 PM CDT 05/25/2024 2:07 PM CDT Antonino Cheek MD LAB - BLOOD ORDERABL ES Performing Organization Address [facility]/ZIP Co de Phone Number [facility] Lab [address] Lab (1st floor, no room number) [place] [address], [place] * Glucose by meter (05/25/2024 2:01 PM CDT) GLUCOSE BY METER POCT 70 70 - 99 mg/dL 05/25/2024 2:08 PM CDT LABORATORY POC Blood, Capillary BLOOD SPECIMEN / Unknown 05/25/2024 2:01 PM CDT 05/25/2024 2:08 PM CDT Antonino Cheek MD LAB - BEAKER POCT LABORATORY POC [facility] Lab [address] Lab (1st floor, no room number) [place] [address], [place] * Hepatitis B surface antigen (05/25/2024 9:25 AM CDT) Hepatitis B Surface Antigen Nonreactive Nonreactive 05/25/2024 2:23 PM CDT UU LABORATORY Blood BLOOD SPECIMEN / Unknown Venipuncture / Unknown 05/25/2024 9:25 AM CDT 05/25/2024 10:13 AM CDT Jose Enrique Naylor MD LAB - BLOOD ORDERABL ES Performing Organization Address [facility] de Phone Number U LABORATORY [facility] [address] [facility], [address] [phone] [place] [address] * Hepatitis B Surface Antibody (05/25/2024 9:25 [...] - BLOOD ORDERABL ES Performing Organization Address City/[facility]/[place] Co de Phone Number LABORATORY [facility] [place] [facility] [address] [facility], Room [address] [phone] * Glucose by meter (05/25/2024 5:35 AM CDT) GLUCOSE BY METER POCT 86 70 - 99 mg/dL 05/25/2024 5:42 AM CDT LABORATORY POC Blood, Capillary BLOOD SPECIMEN / Unknown 05/25/2024 5:35 AM CDT 05/25/2024 5:42 AM CDT Antonino Cheek MD LAB - BEAKER POCT LABORATORY [facility] [address] Lab (1st floor, no room number) [place] [phone] [place] [address] * Glucose by meter (05/25/2024 2:01 AM CDT) GLUCOSE BY METER POCT 86 70 - 99 mg/dL 05/25/2024 2:08 AM CDT RH LABORATORY POC Blood, Capillary BLOOD SPECIMEN / Unknown 05/25/2024 2:01 AM CDT 05/25/2024 2:08 AM CDT Antonino Cheek MD LAB - BEXIANG POCT Performing Organization Address City/[facility]/ZIP Co de Phone Number LABORATORY [facility] [address] Lab (1st floor, no room number) [place] [phone] [place] [address] * Glucose by meter (05/24/2024 8:52 PM CDT) GLUCOSE BY METER POCT 96 70 - 99 mg/dL 05/24/2024 8:59 PM CDT LABORATORY POC Blood, Capillary BLOOD SPECIMEN / Unknown 05/24/2024 8:52 PM CDT 05/24/2024 8:59 PM CDT Antonino HERNANDEZ POCT LABORATORY [facility] [address] Lab (1st floor, no room number) [place] [phone], [place] * Glucose by meter (05/24/2024 5:05 PM CDT) GLUCOSE BY METER POCT 84 70 - 99 mg/dL 05/24/2024 5:32 PM CDT RH LABORATORY POC Blood, Capillary BLOOD SPECIMEN / Unknown 05/24/2024 5:05 PM CDT 05/24/2024 5:32 PM CDT Antonino Cheek MD LAB - BEAKER POCT LABORATORY [facility] [address] Lab (1st floor, no room number) [place] [phone] [place] [address] * (ABNORMAL) INR (05/24/2024 2:16 PM CDT) INR 1.16(H) 0.85 - 1.15 05/24/2024 2:34 PM CDT RH LABORATORY Blood BLOOD SPECIMEN / Unknown Venipuncture / Unknown 05/24/2024 2:16 PM CDT 05/24/2024 2:21 PM CDT Lizandro Barron MD LAB - BLOOD ORDERABL ES Performing Organization Address [facility]/ZIP Co de Phone Number [facility] Lab [address] Lab (1st floor, no room number) [place] [phone] [place] [address] * Glucose by meter (05/24/2024 12:20 PM CDT) GLUCOSE BY METER POCT 75 70 - 99 mg/dL 05/24/2024 12:26 PM CDT LABORATORY POC Blood, Capillary BLOOD SPECIMEN / Unknown 05/24/2024 12:20 PM CDT 05/24/2024 12:26 PM CDT Antonino Cheek MD LAB - BEAKER POCT LABORATORY [facility] [address] Lab (1st floor, no room number) [address] [place] [address] * Glucose by meter (05/24/2024 9:12 AM CDT) GLUCOSE BY METER POCT 86 70 - 99 mg/dL 05/24/2024 9:19 AM CDT RH LABORATORY POC Blood, Capillary BLOOD SPECIMEN / Unknown 05/24/2024 9:12 AM CDT 05/24/2024 9:19 AM CDT [facility] Lab [address] Lab (1st floor, no room number) [place] [address], [place] * (ABNORMAL) CBC with platelets and [...] MD LAB - BLOOD ORDERABL ES LABORATORY [facility] Lab [address] [facility] Lab (1st floor, no room number) [place] [address], [place] * (ABNORMAL) Comprehensive metabolic panel (05/24/2024 [...] MD LAB - BLOOD ORDERABL ES LABORATORY [facility] Lab [address] Lab (1st floor, no room number) [address] * INR (05/24/2024 6:09 AM CDT) INR 1.14 0.85 - 1.15 05/24/2024 6:27 AM CDT RH LABORATORY Blood STRUCTURE OF LEFT HAND / Unknown Venipuncture / Unknown 05/24/2024 6:09 AM CDT 05/24/2024 6:14 AM CDT Lizandro Barron MD LAB - BLOOD ORDERABL ES [facility] Lab [address] [facility] Lab (1st floor, no room number) [address] * (ABNORMAL) Glucose by meter (05/24/2024 4:49 AM CDT) GLUCOSE BY METER POCT 119(H) 70 - 99 mg/dL 05/24/2024 4:56 AM CDT LABORATORY POC Blood, Capillary BLOOD SPECIMEN / Unknown 05/24/2024 4:49 AM CDT 05/24/2024 4:56 AM CDT Antonino DEAN - BEAKER POCT Performing Organization Address [facility]/ZIP Co de Phone Number LABORATORY [facility] [address] Lab (1st floor, no room number) [address] * (ABNORMAL) Glucose by meter (05/24/2024 1:13 AM CDT) GLUCOSE BY METER POCT 100(H) 70 - 99 mg/dL 05/24/2024 1:20 AM CDT LABORATORY POC Blood, Capillary BLOOD SPECIMEN / Unknown 05/24/2024 1:13 AM CDT 05/24/2024 1:20 AM CDT Antonino DEAN - BEAKER POCT LABORATORY [facility] Care Lab [address] Lab (1st floor, no room number) [address] * INR (05/23/2024 10:19 PM CDT) INR 1.04 0.85 - 1.15 05/23/2024 10:43 PM CDT RH LABORATORY Blood STRUCTURE OF LEFT UPPER LIMB / Unknown Venipuncture / Unknown 05/23/2024 10:19 PM CDT 05/23/2024 10:26 PM CDT Lizandro Barron MD LAB - BLOOD ORDERABL ES [facility] Lab [address] Lab (1st floor, no room number) [address] * Glucose by meter (05/23/2024 9:58 PM CDT) GLUCOSE BY METER POCT 83 70 - 99 mg/dL 05/23/2024 10:04 PM CDT LABORATORY POC Blood, Capillary BLOOD SPECIMEN / Unknown 05/23/2024 9:58 PM CDT 05/23/2024 10:04 PM CDT Antonino Cheek MD LAB - BEAKER POCT LABORATORY [facility] Care Lab [address] Lab (1st floor, no room number) [address] * (ABNORMAL) Glucose by meter (05/23/2024 9:06 PM CDT) GLUCOSE BY METER POCT 47(LL) 70 - 99 mg/dL 05/23/2024 9:13 PM CDT RH LABORATORY POC Comment:Dr/RN Notified Blood, Capillary BLOOD SPECIMEN / Unknown 05/23/2024 9:06 PM CDT 05/23/2024 9:13 PM CDT Antonino Cheek MD LAB - BEAKER POCT LABORATORY [facility] [address] Lab (1st floor, no room number) [address] * Glucose by meter (05/23/2024 8:41 PM CDT) GLUCOSE BY METER POCT 78 70 - 99 mg/dL 05/23/2024 8:48 PM CDT LABORATORY POC Blood, Capillary BLOOD SPECIMEN / Unknown 05/23/2024 8:41 PM CDT 05/23/2024 8:48 PM CDT Antonino Cheek MD LAB - BEAKER POCT Performing Organization Address [facility]/ZIP Co de Phone Number LABORATORY [facility] [address] Lab (1st floor, no room number) [address] * (ABNORMAL) Glucose by meter (05/23/2024 7:55 PM CDT) GLUCOSE BY METER POCT 67(L) 70 - 99 mg/dL 05/23/2024 8:02 PM CDT LABORATORY POC Blood, Capillary BLOOD SPECIMEN / Unknown 05/23/2024 7:55 PM CDT 05/23/2024 8:02 PM CDT Antonino Cheek MD LAB - BEAKER POCT LABORATORY [facility] Lab [address] Lab (1st floor, no room number) [address] * (ABNORMAL) Tissue Aerobic Bacterial Culture [...] - MICRO GENERAL ORDERABLES [facility] IDD LABORATORY [facility] Inf. Diseases Diag. Lab [address] [facility], Room [address] * (ABNORMAL) Gram Stain (05/23/2024 6:42 [...] - MICRO GENERAL ORDERABLES Performing Organization Address City/[facility]/ZIP Co de Phone Number [facility] IDD LABORATORY [facility] Inf. Diseases Diag. Lab [address] [facility], Room [address] * Anaerobic Bacterial Culture Routine (05/23/2024 6:42 PM CDT) Culture 4+ Mixed Aerobic and Anaerobic dev JOJO 05/25/2024 2:01 PM CDT [facility] IDD LABORATORY Comment:No predominant organ ism Tissue SCROTAL STRUCTURE / Unknown Non-blood Collection / Unknown 05/23/2024 6:42 PM CDT 05/23/2024 6:46 PM CDT Lizandro Barron MD LAB - MICRO GENERAL ORDERABLES [facility] IDD LABORATORY [facility] Inf. Diseases Diag. Lab [address] [facility], [address] [place] [address], [place] * Glucose by meter (05/23/2024 5:41 PM CDT) GLUCOSE BY METER POCT 90 70 - 99 mg/dL 05/23/2024 5:49 PM CDT RH LABORATORY POC Blood, Capillary BLOOD SPECIMEN / Unknown 05/23/2024 5:41 PM CDT 05/23/2024 5:49 PM CDT Vi Coe DO LAB - BEAKER POC T LABORATORY POC [facility] Lab [address] Lab (1st floor, no room number) [place] [address], [place] * EKG 12-lead, tracing only (05/23/2024 5:08 PM CDT) Systolic Blood Pressure mmHg RADIOLOGY RESULTS Diastolic Blood Pressure mmHg RADIOLOGY RESULTS Ventricular Rate 63 BPM RAD IOLOGY RESULTS Atrial Rate 63 BPM RADIOLOG Y RESULTS MA Interval 222 ms RADIOLOG Y RESULTS QRS Duration 102 ms RADIOLO GY RESULTS QT 448 ms RADIOLOGY RESULTS QTc 458 ms RADIOLOGY RESULTS P [place] 54 degrees RADIOLOGY RESULTS R AXIS -5 degrees RADIOLOGY RESULTS T [place] 24 degrees RADIOLOGY RESULTS Interpretation ECG Sinus rhythm with 1st degree A-V block Septal infarct , age undetermined Abnormal ECG When compared with ECG of 02-Mar-2024 14:00, Septal infarct is now Present No significant change was found Confirmed by - EMERGENCY ROOM, PHYSICIAN ([id number]), editor dictionary LIZANDRO ZABALA ([id number]) on 05/24/2024 6:44:53 AM RADIOLOGY RESULTS 05/23/2024 5:08 PM CDT 05/24/2024 6:44 AM CDT Pan Michelle MD ECG ORDERABLES RADIOLOGY RESULTS * (ABNORMAL) INR (05/23/2024 3:42 PM CDT) INR 1.29(H) 0.85 - 1.15 05/23/2024 4:21 PM CDT RH LABORATORY Blood BLOOD SPECIMEN / Unknown Venipuncture / Unknown 05/23/2024 3:42 PM CDT 05/23/2024 3:45 PM CDT Vi Coe DO LAB - BLOOD ORDE [facility] Organization Address City/State/ZIP Co de Phone Number LABORATORY [facility] Lab [address] [facility] Lab (1st floor, no room number) [place] [address] * CT Abdomen Pelvis w Contrast (05/23/2024 2:19 PM CDT) Anatomical Region Laterality Modality Abdomen/Pelvis, SUBRAD CT YAMIA DY, UMP CT ABDOMEN PELVIS, RAD CT Computed Tomography Impressions 05/23/2024 2:43 PM CDT IMPRESSION: 1. 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 2. ??Other chronic findings as discussed above. Findings were discussed with Dr. Kenna Coe at 2:35 PM. MIKE LIPSCOMB MD SYSTEM ID: ??[id number] Narrative 05/23/2024 2:[address] ABDOMEN [...] veins which are not included in the [id number]. MUSCULOSKELETAL: Stable degenerative changes at L4-L5 with [...] veins which are not included in the [id number]. 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 No destructive lesions in the bones. IMPRESSION: 1. 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 2. Other chronic findings as discussed above. Findings were discussed with Dr. Kenna Coe at 2:35 PM. MIKE LIPSCOMB MD SYSTEM ID: [id number] Vi Coe DO IMG CT ORDERABLE S * Adult Type and Screen (05/23/2024 2:07 PM CDT) ABO/RH(D) O POS 05/23/2024 1:37 PM CDT RH BLOOD BANK Antibody Screen Negative Negative 05/23/2024 1:37 PM CDT RH BLOOD BANK SPECIMEN EXPIRATION DATE [id number] 05/23/2024 1:37 PM CDT RH BLOOD BANK Blood BLOOD SPECIMEN / Unknown Venipuncture / Unknown 05/23/2024 2:07 PM CDT 05/23/2024 2:10 PM CDT Vi Coe DO LAB - BLOOD BANK TEST ORDER RH BLOOD BANK [address] [place] [address], [place] * (ABNORMAL) CBC with platelets and [...] LAB - BLOOD ROVERTO WHITMORE RH LABORATORY [facility] Lab [address] [facility] Lab (1st floor, no room number) [place] [address], [place] * Lactic acid whole blood (05/23/2024 1:50 PM CDT) Lactic Acid 0.9 0.7 - 2.0 mmol/L 05/23/2024 1:57 PM CDT RH LABORATORY Blood BLOOD SPECIMEN / Unknown Venipuncture / Unknown 05/23/2024 1:50 PM CDT 05/23/2024 1:54 PM CDT Vi Coe DO LAB - BLOOD ORDE RABLES RH LABORATORY [facility] Lab [address] Lab (1st floor, no room number) [place] [address] * Blood Culture Peripheral Blood (05/23/2024 1:50 PM CDT) Culture No Growth 05/28/2024 4:06 PM CDT UU IDD LABORATORY Blood BLOOD SPECIMEN / Unknown Venipuncture / Unknown 05/23/2024 1:50 PM CDT 05/23/2024 1:53 PM CDT Vi Coe DO LAB - MICRO GENE RAL ORDERABLES [facility] IDD LABORATORY [facility] Inf. Diseases Diag. Lab [address] [facility], [address] [place] [address] * (ABNORMAL) Comprehensive metabolic panel (05/23/2024 [...] DO LAB - BLOOD ROVERTO WHITMORE LABORATORY [facility] Lab [address] [facility] Lab (1st floor, no room number) [place] [address], [place] * (ABNORMAL) INR (05/23/2024 1:50 PM CDT) INR >10.00(HH) 0.85 - 1.15 05/23/2024 2:30 PM CDT LABORATORY Blood BLOOD SPECIMEN / Unknown Venipuncture / Unknown 05/23/2024 1:50 PM CDT 05/23/2024 1:55 PM CDT Vi Riverared Coe DO LAB - BLOOD ROVERTO WHITMORE [facility] Organization Address City/State/ZIP Co de Phone Number LABORATORY 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 documented in this encounter Care Teams Crew Boat Operator Relationship Specialty Start Date End Date Cornell Butt PCP - General 06/24/11 documented as of this encounter
--- OUTSIDE RECORDS SUMMARY | 2024-07-15 14:29 | XMS_ITS | Encounter Summary ---
Author Organization [place] Address [facility] [place] [address] Care Team Providers Care Doctor Of Chiropractic Name Role Phone Preet Huff Primary Care Provider Reason for Visit * Auth/Cert Specialty Diagnoses / Procedures Referred By Contaixa t Referred To Contact EMERGENCY MEDICINE Diagnoses Supratherapeutic INR Mita's gangrene of scrotum (H28) Emergency Dept [address] [place] [address] Referral ID Status Reason Start Date Expiration Date Visits Re quested Visits Authorized [id number] 1 1 Encounter Details Date Type Department Care Team (Late st Contact Info) Description 05/23/2024 6:02 PM CDT Anesthesia Event [facility] PeriOp Services [address] [place] [address] Tom Castro MD [facility] [address] [place], [place] [phone] Pan Michelle MD [facility] [address] [place], [place] [phone] Anesthesia Record Procedure Summary Procedure Name Responsible Anesthesiologist Anesthesia Start Time Anesthesia Stop Time Incision and drainage, debridement of scrotal skin and subcutaneous tissues for necrotizing soft tissue infection of the scrotum (Scrotum) Tom Castro MD 05/23/24 [id number] Events Date Time Event Comment 05/23/2024 1711 1718 SIGN HANGER SUPERVISOR Ready for Procedure 180 AN REASSESS I attest that I have identified and re-evaluated the patient immediately before the induction of anesthesia and I am satisfied that the anesthetic plan is suitable for the patient's condition and procedure. The first vital signs recorded are pre- induction. 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 Questions answered and patient/resources representative(s) expressed understanding. - Discussed: - Discussed [...] Times: 05/23/2024 6:21 PM Staff - ? SIGN HANGER SUPERVISOR: Yasemin Almaguer APRN CRNA ? Performed [...] Time: 05/23/2024 6:21 PM Tom Castro MD [place] [facility] documented in this encounter Visit Diagnoses [...] mg documented in this encounter Care Teams Doctor Of Chiropractic Relationship Specialty Start Date End Date Preet Huff PCP - General 06/24/11 documented as of this encounter
--- OUTSIDE RECORDS SUMMARY | 2024-07-15 14:30 | XMS_ITS ---
Author Organization [place] Address [address] [place] [address] Care Team Providers Care Paint Technician Name Role Phone Preet Huff Primary Care Provider [phone] Transitional Care Management Status:Closed (Closed) Start date:05/31/2024 Enrollment date:06/01/2024 End date:06/14/2024 Close reason:Goals met Continued Care and Services Coordination
--- OUTSIDE RECORDS SUMMARY | 2024-07-15 14:30 | XMS_ITS | Encounter Summary ---
Author Organization [place] Address [address] [facility] [place] [address] Care Team Providers Care Manager Performance Improvement Name Role Phone Preet Huff Primary Care Provider Jaxon Saravia MD Unavailable [phone] Encounter Details Date Type Department Care Team (Late st Contact Info) Description 12/21/[address] [facility] Interventional Radiology 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
--- OUTSIDE RECORDS SUMMARY | 2024-07-15 14:30 | XMS_ITS | Encounter Summary ---
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 2. Other chronic findings as discussed above. Findings were discussed with Dr. Kenna Coe at 2:35 PM. MIKE LIPSCOMB MD SYSTEM ID: [id number] Independent Interpretation None ED Course Medications Administered [...] 4,156 Units (4,156 Units Intravenous $Given 05/23/24 9751) Procedures Procedures Discussion of Management Urology, Poppy [...] care. [address] Cheek [facility] medicine who accepts 4350 Arianna Goodman (Mother) [phone] (Home Phone) Updated mom Additional Documentation None Medical Decision Making / Diagnosis [facility] Diagnoses: None MIPS None MDM [...] Expected time: Means of arrival: Ambulance Comments: [place] 332 documented in this encounter Miscellaneous Notes * Plan of Care - Rand Ochoa OTR - 05/30/2024 5:21 PM CDT Occupational Therapy Discharge Summary Reason for therapy discharge: Discharged to home with home therapy. Progress towards therapy goal(s). See goals on Care Plan in [facility] electronic health record for goal details. Goals partially met. Barriers to achieving goals: discharge from facility. Therapy recommendation(s): Continued therapy is recommended. Rationale/Recommendations: Patient appears safe and able todischarge home with intermittent assist from family with higher level IADLS (just like baseline). Pt wouldbeenfit from HHOT to progress ADL tolerance. Pt not seen by engineering technical writer on this date, note written [...] of DVT/PE prophylaxis. 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 Pertinent assessments: Assumed cares @ [phone].Disoriented to situation and time. VSS on RA. [...] shift note. Outcome: Progressing Flowsheets (Taken 05/28/2024 0694) Outcome Evaluation: Denies pain, slept well. Goal: [...] Flowsheet Documentation Taken 05/27/2024919 by Edie Pack RNdirector of extension work Interventions: declines Goal: Readiness for Transition of [...] documentation flowsheets. Pertinent assessments: Assumed cares @ [phone].Disoriented to time and situation. VSS on RA. Denies pain, nausea, SOB. 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 Scrotal wound CDI. AC HS B Major Shift Events: uneventful Treatment Plan: IV zosyn, Dialysis MWF, WOC,Urology,neph, ID and CC following. Bedside Nurse: Wilver oJnes RN Problem: Adult Inpatient Plan of Care [...] 2-3 Warfarin Prior to Admission: Yes Warfarin WRINKLE CHASER Regimen: 5 mg M-F and No dose [...] Recent Flowsheet Documentation Taken 05/26/202435 by Laura gAgarwal RN Body Position: position changed independently Intervention: [...] * Pharmacy-Vancomycin Dosing Service - Chucho Zuluaga [facility] - 05/25/2024 3:31 PM CDT Pharmacy [...] 1 each Intravenous SEE ADMIN INSTRUCTIONS 05/24/24 0805/23/24 2200 piperacillin-tazobactam (ZOSYN) 2.25 g vial to [...] shift note. Outcome: Progressing Flowsheets (Taken 05/24/2024 2401) Outcome Evaluation: Scrotal dressing changed twice. Did [...] Fall Risk Recent Flowsheet Documentation Taken 05/24/2024 2152 by Jessica Paz RN Safety Promotion/Fall Prevention: [...] Recent Flowsheet Documentation Taken 05/23/20242299 by Jazmín Aclantar RN Body Position: weight shifting Device Skin [...] member and Thelma (aunt) via phone and [phone] Pertinent Information: outside meds--none added Changes made to WRINKLE CHASER medication list: Added: none Deleted: norvasc, lipitor, Changed: protonix Allergies reviewed with patient and updates made in EHR: yes Medication History Completed By: Graham Joseph RPH 05/23/2024 9:51 PM WRINKLE CHASER Med List Medication Sig Last Dose B Fucpejb-H-Tyvpb Acid (WESCAPS PO) Take 1 capsule by [...] and procedure to be performed. A 16 Azeri coud?? catheter was placed through the urethra, [...] stable condition. Lizandro Barron MD Urology [facility] documented in this encounter [...] MD LAB - BEAKER POCT LABORATORY [facility] [address] Lab (1st floor, no room number) [address] * Glucose by meter (05/30/2024 7:13 AM CDT) GLUCOSE BY METER POCT 82 70 - 99 mg/dL 05/30/2024 7:19 AM CDT LABORATORY POC Blood, Capillary BLOOD SPECIMEN / Unknown 05/30/2024 7:13 AM CDT 05/30/2024 7:19 AM CDT Antonino Cheek MD LAB - BEAKER POCT LABORATORY [facility] [address] Lab (1st floor, no room number) [address] * (ABNORMAL) INR (05/30/2024 6:54 AM CDT) INR 2.26(H) 0.85 - 1.15 05/30/2024 7:20 AM CDT RH LABORATORY Blood STRUCTURE OF RIGHT HAND / Unknown Venipuncture / Unknown 05/30/2024 6:54 AM CDT 05/30/2024 7:06 AM CDT Antonino Cheek MD LAB - BLOOD ORDERABL ES RH LABORATORY [facility] [address] Lab (1st floor, no room number) [place] [address] * (ABNORMAL) Basic metabolic panel (05/30/2024 6:54 [...] [facility] [address] Lab (1st floor, no room number) [place] [address] * (ABNORMAL) CBC with platelets [...] [facility] [address] Lab (1st floor, no room number) [place] [phone] [place] [address] * (ABNORMAL) Glucose by meter (05/30/2024 2:18 AM CDT) GLUCOSE BY METER POCT 138(H) 70 - 99 mg/dL 05/30/2024 2:24 AM CDT RH LABORATORY POC Blood, Capillary BLOOD SPECIMEN / Unknown 05/30/2024 2:18 AM CDT 05/30/2024 2:24 AM CDT Antonino Cheek MD LAB - BEAKER POCT LABORATORY [facility] [address] Lab (1st floor, no room number) [address] * (ABNORMAL) Glucose by meter (05/29/2024 9:28 PM CDT) GLUCOSE BY METER POCT 160(H) 70 - 99 mg/dL 05/29/2024 9:35 PM CDT LABORATORY POC Blood, Capillary BLOOD SPECIMEN / Unknown 05/29/2024 9:28 PM CDT 05/29/2024 9:35 PM CDT Antonino Cheek MD LAB - BEAKER POCT LABORATORY [facility] [address] Lab (1st floor, no room number) [address] * (ABNORMAL) Glucose by meter (05/29/2024 5:54 PM CDT) GLUCOSE BY METER POCT 159(H) 70 - 99 mg/dL 05/29/2024 6:01 PM CDT LABORATORY POC Blood, Capillary BLOOD SPECIMEN / Unknown 05/29/2024 5:54 PM CDT 05/29/2024 6:01 PM CDT Antonino Cheek MD LAB - BEAKER POCT Performing Organization Address City/[facility]/ZIP Co de Phone Number LABORATORY [facility] [address] Lab (1st floor, no room number) [place] [phone] [place] [address] * (ABNORMAL) Glucose by meter (05/29/2024 1:41 PM CDT) GLUCOSE BY METER POCT 158(H) 70 - 99 mg/dL 05/29/2024 1:48 PM CDT RH LABORATORY POC Blood, Capillary BLOOD SPECIMEN / Unknown 05/29/2024 1:41 PM CDT 05/29/2024 1:48 PM CDT Antonino Cheek MD LAB - DAVID POCT Performing Organization Address [facility]/ZIP Co de Phone Number LABORATORY [facility] [address] Lab (1st floor, no room number) [address] [place] [address] * Glucose by meter (05/29/2024 7:54 AM CDT) GLUCOSE BY METER POCT 90 70 - 99 mg/dL 05/29/2024 8:01 AM CDT RH LABORATORY POC Blood, Capillary BLOOD SPECIMEN / Unknown 05/29/2024 7:54 AM CDT 05/29/2024 8:01 AM CDT Antonino DEAN - BEXIANG POCT Performing Organization Address City/[facility]/ZIP Co de Phone Number LABORATORY [facility] [address] Lab (1st floor, no room number) [place] [phone] * (ABNORMAL) INR (05/29/2024 6:22 AM CDT) INR 1.92(H) 0.85 - 1.15 05/29/2024 6:52 AM CDT RH LABORATORY Blood STRUCTURE OF RIGHT HAND / Unknown Venipuncture / Unknown 05/29/2024 6:22 AM CDT 05/29/2024 6:40 AM CDT Antonino Cheek MD LAB - BLOOD ORDERABL ES LABORATORY [facility] [address] Lab (1st floor, no room number) [place] [address], [facility] * (ABNORMAL) Basic metabolic [...] [facility] [address] Lab (1st floor, no room number) [place] [address] * (ABNORMAL) CBC with platelets (05/29/2024 6:22 AM CDT) [facility] WBC Count 7.2 4.0 - 11.0 10e3/uL [...] [facility] [address] Lab (1st floor, no room number) [place] [address], [facility] * (ABNORMAL) Glucose by meter (05/29/2024 2:26 AM CDT) GLUCOSE BY METER POCT 103(H) 70 - 99 mg/dL 05/29/2024 2:33 AM CDT RH LABORATORY POC Blood, Capillary BLOOD SPECIMEN / Unknown 05/29/2024 2:26 AM CDT 05/29/2024 2:33 AM CDT Antonino Cheek MD LAB - BEAKER POCT LABORATORY [facility] [address] Lab (1st floor, no room number) [address] [place] [address] * (ABNORMAL) Glucose by meter (05/28/2024 9:50 PM CDT) GLUCOSE BY METER POCT 102(H) 70 - 99 mg/dL 05/28/2024 9:56 PM CDT RH LABORATORY POC Blood, Capillary BLOOD SPECIMEN / Unknown 05/28/2024 9:50 PM CDT 05/28/2024 9:56 PM CDT Antonino DEAN - BEXIANG POCT Performing Organization Address [facility]/ZIP Co de Phone Number LABORATORY [facility] [address] Lab (1st floor, no room number) [place] [phone] [place] [address] * (ABNORMAL) Glucose by meter (05/28/2024 5:08 PM CDT) GLUCOSE BY METER POCT 254(H) 70 - 99 mg/dL 05/28/2024 5:16 PM CDT LABORATORY POC Blood, Capillary BLOOD SPECIMEN / Unknown 05/28/2024 5:08 PM CDT 05/28/2024 5:16 PM CDT Antonino DEAN - DAVID POCT LABORATORY [facility] [address] Lab (1st floor, no room number) [place] [phone] [place] [address] * Glucose by meter (05/28/2024 1:58 PM CDT) GLUCOSE BY METER POCT 91 70 - 99 mg/dL 05/28/2024 2:05 PM CDT RH LABORATORY POC Blood, Capillary BLOOD SPECIMEN / Unknown 05/28/2024 1:58 PM CDT 05/28/2024 2:05 PM CDT Antonino Cheek MD LAB - BEAKER POCT LABORATORY [facility] [address] Lab (1st floor, no room number) [place] [phone] [place] [address] * (ABNORMAL) Glucose by meter (05/28/2024 7:48 AM CDT) GLUCOSE BY METER POCT 128(H) 70 - 99 mg/dL 05/28/2024 7:54 AM CDT RH LABORATORY POC Blood, Capillary BLOOD SPECIMEN / Unknown 05/28/2024 7:48 AM CDT 05/28/2024 7:54 AM CDT Antonino Cheek MD LAB - BEAKER POCT LABORATORY [facility] [address] Lab (1st floor, no room number) [place] [id number] * Extra Purple Top EDTA (LAB USE ONLY) (05/28/2024 6:07 AM CDT) Hold Specimen JIC 05/28/2024 7:32 AM CDT LABORATORY Blood STRUCTURE OF LEFT HAND / Unknown Venipuncture / Unknown 05/28/2024 6:07 AM CDT 05/28/2024 6:17 AM CDT Antonino Cheek MD LAB - BLOOD ORDERABL ES Performing Organization Address [facility]/ZIP Co de Phone Number LABORATORY [facility] [address] Lab (1st floor, no room number) [place] [phone] [place] [address] * Extra Green Top Tube (LAB USE ONLY) (05/28/2024 6:07 AM CDT) Hold Specimen JIC 05/28/2024 7:32 AM CDT RH LABORATORY Blood STRUCTURE OF LEFT HAND / Unknown Venipuncture / Unknown 05/28/2024 6:07 AM CDT 05/28/2024 6:17 AM CDT Antonino Cheek MD LAB - BLOOD ORDERABL ES Performing Organization Address [facility] Co de Phone Number [facility] Lab [address] Lab (1st floor, no room number) [place] [phone] [place] [address] * (ABNORMAL) INR (05/28/2024 6:07 AM CDT) INR 1.87(H) 0.85 - 1.15 05/28/2024 6:27 AM CDT RH LABORATORY Blood STRUCTURE OF LEFT HAND / Unknown Venipuncture / Unknown 05/28/2024 6:07 AM CDT 05/28/2024 6:17 AM CDT Antonino Cheek MD LAB - BLOOD ORDERABL ES Performing Organization Address [facility]/ZIP Co de Phone Number [facility] [address] Lab (1st floor, no room number) [place] [phone] [place] [address] * (ABNORMAL) Hemoglobin (05/28/2024 6:07 AM CDT) Hemoglobin 7.7(L) 13.3 - 17.7 g/dL 05/28/2024 9:02 AM CDT RH LABORATORY Blood STRUCTURE OF LEFT HAND / Unknown Venipuncture / Unknown 05/28/2024 6:07 AM CDT 05/28/2024 6:17 AM CDT Dileep Anders MD LAB - BLOOD ORD ERABLES LABORATORY [facility] Lab [address] Lab (1st floor, no room number) [place] [address], [facility] * (ABNORMAL) Basic metabolic [...] Anders MD LAB - BLOOD ORD ERABLES [facility] [address] Lab (1st floor, no room number) [place] [address], [facility] * (ABNORMAL) Glucose by meter (05/28/2024 2:19 AM CDT) GLUCOSE BY METER POCT 102(H) 70 - 99 mg/dL 05/28/2024 2:26 AM CDT RH LABORATORY POC Blood, Capillary BLOOD SPECIMEN / Unknown 05/28/2024 2:19 AM CDT 05/28/2024 2:26 AM CDT Antonino DEAN - BEAKER POCT Performing Organization Address [facility]/ZIP Co de Phone Number LABORATORY [facility] [address] Lab (1st floor, no room number) [place] [address], [facility] * (ABNORMAL) Glucose by meter (05/27/2024 9:05 PM CDT) GLUCOSE BY METER POCT 148(H) 70 - 99 mg/dL 05/27/2024 9:13 PM CDT LABORATORY POC Blood, Capillary BLOOD SPECIMEN / Unknown 05/27/2024 9:05 PM CDT 05/27/2024 9:13 PM CDT Antonino Cheek MD LAB - BEAKER POCT LABORATORY [facility] [address] Lab (1st floor, no room number) [place] [address], [facility] * (ABNORMAL) Glucose by meter (05/27/2024 5:11 PM CDT) GLUCOSE BY METER POCT 148(H) 70 - 99 mg/dL 05/27/2024 5:20 PM CDT RH LABORATORY POC Blood, Capillary BLOOD SPECIMEN / Unknown 05/27/2024 5:11 PM CDT 05/27/2024 5:20 PM CDT Antonino DEAN - BEXIANG POCT LABORATORY [facility] [address] Lab (1st floor, no room number) [place] [phone] [place] [address] * (ABNORMAL) Glucose by meter (05/27/2024 11:42 AM CDT) GLUCOSE BY METER POCT 149(H) 70 - 99 mg/dL 05/27/2024 11:49 AM CDT LABORATORY POC Blood, Capillary BLOOD SPECIMEN / Unknown 05/27/2024 11:42 AM CDT 05/27/2024 11:49 AM CDT Antonino DEAN - BEXIANG POCT Performing Organization Address City/[facility]/ZIP Co de Phone Number LABORATORY [facility] [address] Lab (1st floor, no room number) [place] [phone], [facility] * (ABNORMAL) Glucose by meter (05/27/2024 7:44 AM CDT) GLUCOSE BY METER POCT 108(H) 70 - 99 mg/dL 05/27/2024 7:51 AM CDT LABORATORY POC Blood, Capillary BLOOD SPECIMEN / Unknown 05/27/2024 7:44 AM CDT 05/27/2024 7:51 AM CDT Antonino DEAN - BEXIANG POCT LABORATORY [facility] [address] Lab (1st floor, no room number) [place] [phone], [facility] * (ABNORMAL) INR (05/27/2024 7:03 AM CDT) INR 1.81(H) 0.85 - 1.15 05/27/2024 7:17 AM CDT RH LABORATORY Blood STRUCTURE OF RIGHT HAND / Unknown Venipuncture / Unknown 05/27/2024 7:03 AM CDT 05/27/2024 7:07 AM CDT Antonino Cheek MD LAB - BLOOD ORDERABL ES [facility] Lab [address] Lab (1st floor, no room number) [address] [place] [address] * (ABNORMAL) Glucose by meter (05/27/2024 2:03 AM CDT) GLUCOSE BY METER POCT 157(H) 70 - 99 mg/dL 05/27/2024 2:10 AM CDT LABORATORY POC Blood, Capillary BLOOD SPECIMEN / Unknown 05/27/2024 2:03 AM CDT 05/27/2024 2:10 AM CDT Antonino Cheek MD LAB - BEAKER POCT Performing Organization Address [facility]/ZIP Co de Phone Number LABORATORY [facility] [address] Lab (1st floor, no room number) [place] [phone] * (ABNORMAL) Glucose by meter (05/26/2024 9:29 PM CDT) GLUCOSE BY METER POCT 155(H) 70 - 99 mg/dL 05/26/2024 9:37 PM CDT LABORATORY POC Blood, Capillary BLOOD SPECIMEN / Unknown 05/26/2024 9:29 PM CDT 05/26/2024 9:37 PM CDT Antonino Cheek MD LAB - BEAKER POCT LABORATORY [facility] Lab [address] Lab (1st floor, no room number) [address] * (ABNORMAL) Glucose by meter (05/26/2024 4:10 PM CDT) GLUCOSE BY METER POCT 174(H) 70 - 99 mg/dL 05/26/2024 4:19 PM CDT RH LABORATORY POC Blood, Capillary BLOOD SPECIMEN / Unknown 05/26/2024 4:10 PM CDT 05/26/2024 4:19 PM CDT Antonino Cheek MD LAB - BEAKER POCT LABORATORY POC [facility] Lab [address] Lab (1st floor, no room number) [address] * (ABNORMAL) INR (05/26/2024 4:09 PM CDT) INR 1.67(H) 0.85 - 1.15 05/26/2024 4:28 PM CDT RH LABORATORY Blood STRUCTURE OF LEFT UPPER LIMB / Unknown Venipuncture / Unknown 05/26/2024 4:09 PM CDT 05/26/2024 4:15 PM CDT Antonino Cheek MD LAB - BLOOD ORDERABL ES LABORATORY [facility] Lab [address] Lab (1st floor, no room number) [address] * (ABNORMAL) Glucose by meter (05/26/2024 11:37 AM CDT) GLUCOSE BY METER POCT 197(H) 70 - 99 mg/dL 05/26/2024 11:44 AM CDT RH LABORATORY POC Blood, Capillary BLOOD SPECIMEN / Unknown 05/26/2024 11:37 AM CDT 05/26/2024 11:44 AM CDT Antonino F Cheek MD LAB - BEAKER POCT RH LABORATORY [facility] [address] Lab (1st floor, no room number) [place] [phone] [place] [address] * Glucose by meter (05/26/2024 8:22 AM CDT) GLUCOSE BY METER POCT 85 70 - 99 mg/dL 05/26/2024 8:29 AM CDT LABORATORY POC Blood, Capillary BLOOD SPECIMEN / Unknown 05/26/2024 8:22 AM CDT 05/26/2024 8:29 AM CDT Antonino HERNANDEZ POCT Performing Organization Address [facility]/ZIP Co de Phone Number RH LABORATORY [facility] [address] Lab (1st floor, no room number) [address] [place] [address] * (ABNORMAL) CBC with platelets and differential [...] [facility] [address] Lab (1st floor, no room number) [place] [address], [facility] * (ABNORMAL) Basic metabolic [...] [facility] [address] [facility] Lab (1st floor, no room number) [place] [address], [facility] * (ABNORMAL) Glucose by meter (05/26/2024 1:57 AM CDT) GLUCOSE BY METER POCT 123(H) 70 - 99 mg/dL 05/26/2024 2:04 AM CDT RH LABORATORY POC Blood, Capillary BLOOD SPECIMEN / Unknown 05/26/2024 1:57 AM CDT 05/26/2024 2:04 AM CDT Antonino Cheek MD LAB - BEAKER POCT LABORATORY [facility] Lab [address] Lab (1st floor, no room number) [address] * (ABNORMAL) Glucose by meter (05/25/2024 9:32 PM CDT) GLUCOSE BY METER POCT 155(H) 70 - 99 mg/dL 05/25/2024 9:39 PM CDT RH LABORATORY POC Blood, Capillary BLOOD SPECIMEN / Unknown 05/25/2024 9:32 PM CDT 05/25/2024 9:39 PM CDT Antoinno Cheek MD LAB - BEAKER POCT Performing Organization Address City/[facility]/ZIP Co de Phone Number LABORATORY [facility] [address] Lab (1st floor, no room number) [address] * (ABNORMAL) Glucose by meter (05/25/2024 7:06 PM CDT) GLUCOSE BY METER POCT 183(H) 70 - 99 mg/dL 05/25/2024 7:14 PM CDT RH LABORATORY POC Blood, Capillary BLOOD SPECIMEN / Unknown 05/25/2024 7:06 PM CDT 05/25/2024 7:14 PM CDT Antonino Cheek MD LAB - BEAKER POCT LABORATORY [facility] [address] Lab (1st floor, no room number) [address] * (ABNORMAL) Glucose by meter (05/25/2024 5:29 PM CDT) GLUCOSE BY METER POCT 142(H) 70 - 99 mg/dL 05/25/2024 5:36 PM CDT LABORATORY POC Blood, Capillary BLOOD SPECIMEN / Unknown 05/25/2024 5:29 PM CDT 05/25/2024 5:36 PM CDT Antonino Cheek MD LAB - BEAKER POCT LABORATORY [facility] [address] Lab (1st floor, no room number) [address] * Vancomycin level (05/25/2024 2:04 PM CDT) Vancomycin 11.9 ug/mL 05/25/2024 3:28 PM CDT RH LABORATORY Comment: Traditional Dosing Therapeutic Range: Trough 10-15 ug/mL Peak 20-40 ug/mL Critical: Greater than 25.0 ug/mL Blood STRUCTURE OF RIGHT UPPER LIMB / Unknown Venipuncture / Unknown 05/25/2024 2:04 PM CDT 05/25/2024 2:07 PM CDT Antonino Cheek MD LAB - BLOOD ORDERABL ES LABORATORY [facility] Lab [address] Lab (1st floor, no room number) [place] [phone] * Extra Purple Top EDTA (LAB USE ONLY) (05/25/2024 2:04 PM CDT) Hold Specimen JIC 05/25/2024 3:17 PM CDT RH LABORATORY Blood STRUCTURE OF RIGHT UPPER LIMB / Unknown Venipuncture / Unknown 05/25/2024 2:04 PM CDT 05/25/2024 2:07 PM CDT Antonino Cheek MD LAB - BLOOD ORDERABL ES LABORATORY [facility] [address] Lab (1st floor, no room number) [place] [id number] [place] [address] * Extra Green Top Tube (LAB USE ONLY) (05/25/2024 2:04 PM CDT) Hold Specimen JIC 05/25/2024 3:17 PM CDT LABORATORY Blood STRUCTURE OF RIGHT UPPER LIMB / Unknown Venipuncture / Unknown 05/25/2024 2:04 PM CDT 05/25/2024 2:07 PM CDT Antonino Cheek MD LAB - BLOOD ORDERABL ES Performing Organization Address City/[facility]/ZIP Co de Phone Number LABORATORY [facility] [address] Lab (1st floor, no room number) [place] [phone] [place] [address] * Glucose by meter (05/25/2024 2:01 PM CDT) GLUCOSE BY METER POCT 70 70 - 99 mg/dL 05/25/2024 2:08 PM CDT LABORATORY POC Blood, Capillary BLOOD SPECIMEN / Unknown 05/25/2024 2:01 PM CDT 05/25/2024 2:08 PM CDT Antonino Cheek MD LAB - BEAKER POCT LABORATORY POC [facility] [address] Lab (1st floor, no room number) [place] [phone] [place] [address] * Hepatitis B surface antigen (05/25/2024 9:25 AM CDT) Hepatitis B Surface Antigen Nonreactive Nonreactive 05/25/2024 2:23 PM CDT [facility] LABORATORY Blood BLOOD SPECIMEN / Unknown Venipuncture / Unknown 05/25/2024 9:25 AM CDT 05/25/2024 10:13 AM CDT Jose Enrique Naylor MD LAB - BLOOD ORDERABL ES Performing Organization Address City/[facility]/ZIP Co de Phone Number LABORATORY [facility] [facility] [address] [facility], Room [address] [phone] * Hepatitis B Surface Antibody (05/25/2024 [...] - BLOOD ORDERABL ES Performing Organization Address [facility] Co de Phone Number LABORATORY [facility] [address] [facility], [address] [phone] * Glucose by meter (05/25/2024 5:35 AM CDT) GLUCOSE BY METER POCT 86 70 - 99 mg/dL 05/25/2024 5:42 AM CDT LABORATORY POC Blood, Capillary BLOOD SPECIMEN / Unknown 05/25/2024 5:35 AM CDT 05/25/2024 5:42 AM CDT Antonino DEAN - BEAKER POCT LABORATORY [facility] [address] Lab (1st floor, no room number) [place] [phone] * Glucose by meter (05/25/2024 2:01 AM CDT) GLUCOSE BY METER POCT 86 70 - 99 mg/dL 05/25/2024 2:08 AM CDT RH LABORATORY POC Blood, Capillary BLOOD SPECIMEN / Unknown 05/25/2024 2:01 AM CDT 05/25/2024 2:08 AM CDT Antonino Cheek MD LAB - BEAKER POCT Performing Organization Address City/[facility]/ZIP Co de Phone Number LABORATORY [facility] Lab [address] Lab (1st floor, no room number) [place] [phone] * Glucose by meter (05/24/2024 8:52 PM CDT) GLUCOSE BY METER POCT 96 70 - 99 mg/dL 05/24/2024 8:59 PM CDT LABORATORY POC Blood, Capillary BLOOD SPECIMEN / Unknown 05/24/2024 8:52 PM CDT 05/24/2024 8:59 PM CDT Antonino DEAN - BEXIANG POCT Performing Organization Address City/[facility]/ZIP Co de Phone Number LABORATORY [facility] Lab [address] Lab (1st floor, no room number) [place] [phone] [place] [address] * Glucose by meter (05/24/2024 5:05 PM CDT) GLUCOSE BY METER POCT 84 70 - 99 mg/dL 05/24/2024 5:32 PM CDT LABORATORY POC Blood, Capillary BLOOD SPECIMEN / Unknown 05/24/2024 5:05 PM CDT 05/24/2024 5:32 PM CDT Antonino DEAN - DAVID POCT Performing Organization Address [facility]/ZIP Co de Phone Number LABORATORY [facility] Lab [address] Lab (1st floor, no room number) [address] [place] [address] * (ABNORMAL) INR (05/24/2024 2:16 PM CDT) INR 1.16(H) 0.85 - 1.15 05/24/2024 2:34 PM CDT RH LABORATORY Blood BLOOD SPECIMEN / Unknown Venipuncture / Unknown 05/24/2024 2:16 PM CDT 05/24/2024 2:21 PM CDT Lizandro Barron MD LAB - BLOOD ORDERABL ES Performing Organization Address City/[facility]/ZIP Co de Phone Number [facility] Lab [address] Lab (1st floor, no room number) [place] [phone] [place] [address] * Glucose by meter (05/24/2024 12:20 PM CDT) GLUCOSE BY METER POCT 75 70 - 99 mg/dL 05/24/2024 12:26 PM CDT LABORATORY POC Blood, Capillary BLOOD SPECIMEN / Unknown 05/24/2024 12:20 PM CDT 05/24/2024 12:26 PM CDT Antonino HERNANDEZ POCT Performing Organization Address [facility]/ZIP Co de Phone Number LABORATORY [facility] Lab [address] Lab (1st floor, no room number) [place] [phone] [place] [address] * Glucose by meter (05/24/2024 9:12 AM CDT) GLUCOSE BY METER POCT 86 70 - 99 mg/dL 05/24/2024 9:19 AM CDT LABORATORY POC Blood, Capillary BLOOD SPECIMEN / Unknown 05/24/2024 9:12 AM CDT 05/24/2024 9:19 AM CDT Antonino Cheek MD LAB - [facility] POCT RH LABORATORY [facility] Lab [address] Lab (1st floor, no room number) [place] [address], [facility] * (ABNORMAL) CBC [...] [facility] [address] [facility] Lab (1st floor, no room number) [place] [address], [facility] * (ABNORMAL) Comprehensive [...] [facility] [address] Lab (1st floor, no room number) [place] [address], [facility] * INR (05/24/2024 6:09 AM CDT) INR 1.14 0.85 - 1.15 05/24/2024 6:27 AM CDT LABORATORY Blood STRUCTURE OF LEFT HAND / Unknown Venipuncture / Unknown 05/24/2024 6:09 AM CDT 05/24/2024 6:14 AM CDT Lizandro Barron MD LAB - BLOOD ORDERABL ES [facility] Care Lab [address] Lab (1st floor, no room number) [place] [phone] * (ABNORMAL) Glucose by meter (05/24/2024 4:49 AM CDT) GLUCOSE BY METER POCT 119(H) 70 - 99 mg/dL 05/24/2024 4:56 AM CDT LABORATORY POC Blood, Capillary BLOOD SPECIMEN / Unknown 05/24/2024 4:49 AM CDT 05/24/2024 4:56 AM CDT Antonino DEAN - BEAKER POCT Performing Organization Address [facility]/ZIP Co de Phone Number LABORATORY [facility] Lab [address] Lab (1st floor, no room number) [place] [phone] * (ABNORMAL) Glucose by meter (05/24/2024 1:13 AM CDT) GLUCOSE BY METER POCT 100(H) 70 - 99 mg/dL 05/24/2024 1:20 AM CDT LABORATORY POC Blood, Capillary BLOOD SPECIMEN / Unknown 05/24/2024 1:13 AM CDT 05/24/2024 1:20 AM CDT Antonino Cheek MD LAB - BEAKER POCT LABORATORY [facility] Lab [address] Lab (1st floor, no room number) [address] * INR (05/23/2024 10:19 PM CDT) INR 1.04 0.85 - 1.15 05/23/2024 10:43 PM CDT LABORATORY Blood STRUCTURE OF LEFT UPPER LIMB / Unknown Venipuncture / Unknown 05/23/2024 10:19 PM CDT 05/23/2024 10:26 PM CDT Lizandro Barron MD LAB - BLOOD ORDERABL ES LABORATORY [facility] Lab [address] Lab (1st floor, no room number) [address] * Glucose by meter (05/23/2024 9:58 PM CDT) GLUCOSE BY METER POCT 83 70 - 99 mg/dL 05/23/2024 10:04 PM CDT LABORATORY POC Blood, Capillary BLOOD SPECIMEN / Unknown 05/23/2024 9:58 PM CDT 05/23/2024 10:04 PM CDT Antonino DEAN - BEXIANG POCT Performing Organization Address City/[facility]/ZIP Co de Phone Number LABORATORY POC [facility] Care Lab [address] Lab (1st floor, no room number) [address] * (ABNORMAL) Glucose by meter (05/23/2024 9:06 PM CDT) GLUCOSE BY METER POCT 47(LL) 70 - 99 mg/dL 05/23/2024 9:13 PM CDT LABORATORY POC Comment:Dr/RN Notified Blood, Capillary BLOOD SPECIMEN / Unknown 05/23/2024 9:06 PM CDT 05/23/2024 9:13 PM CDT Antonino DEAN - BEXIANG POCT LABORATORY [facility] Lab [address] Lab (1st floor, no room number) [place] [phone] [place] [address] * Glucose by meter (05/23/2024 8:41 PM CDT) GLUCOSE BY METER POCT 78 70 - 99 mg/dL 05/23/2024 8:48 PM CDT LABORATORY POC Blood, Capillary BLOOD SPECIMEN / Unknown 05/23/2024 8:41 PM CDT 05/23/2024 8:48 PM CDT Antonino Cheek MD LAB - BEAKER POCT LABORATORY [facility] [address] Lab (1st floor, no room number) [place] [phone] * (ABNORMAL) Glucose by meter (05/23/2024 7:55 PM CDT) GLUCOSE BY METER POCT 67(L) 70 - 99 mg/dL 05/23/2024 8:02 PM CDT LABORATORY POC Blood, Capillary BLOOD SPECIMEN / Unknown 05/23/2024 7:55 PM CDT 05/23/2024 8:02 PM CDT Antonino Cheek MD LAB - BEAKER POCT LABORATORY [facility] [address] Lab (1st floor, no room number) [place] [phone] [place] [address] * (ABNORMAL) Tissue Aerobic Bacterial Culture Routine [...] - MICRO GENERAL ORDERABLES [facility] LABORATORY [facility] Inf. Diseases Diag. Lab [address] [facility], Room [place] [phone] * (ABNORMAL) Gram Stain (05/23/2024 [...] - MICRO GENERAL ORDERABLES [facility] LABORATORY [facility] Inf. Diseases Diag. Lab [address] [facility], Room [place] [id number] * Anaerobic Bacterial Culture Routine (05/23/2024 6:42 PM CDT) Culture 4+ Mixed Aerobic and Anaerobic dev JOJO 05/25/2024 2:01 PM CDT [facility] LABORATORY Comment:No predominant organ ism Tissue SCROTAL STRUCTURE / Unknown Non-blood Collection / Unknown 05/23/2024 6:42 PM CDT 05/23/2024 6:46 PM CDT Lizandro Barron MD LAB - MICRO GENERAL ORDERABLES [facility] LABORATORY [facility] Inf. Diseases Diag. Lab [address] [facility], Room [place] [phone] * Glucose by meter (05/23/2024 5:41 PM CDT) GLUCOSE BY METER POCT 90 70 - 99 mg/dL 05/23/2024 5:49 PM CDT RH LABORATORY POC Blood, Capillary BLOOD SPECIMEN / Unknown 05/23/2024 5:41 PM CDT 05/23/2024 5:49 PM CDT Vi Coe DO LAB - BEAKER POC T RH LABORATORY POC [facility] Acute Care Lab [address] Lab (1st floor, no room number) [place] [address] * EKG 12-lead, tracing only (05/23/2024 5:08 PM CDT) Systolic Blood Pressure mmHg RADIOLOGY RESULTS Diastolic Blood Pressure mmHg RADIOLOGY RESULTS Ventricular Rate 63 BPM RAD IOLOGY RESULTS Atrial Rate 63 BPM RADIOLOG Y RESULTS WA Interval 222 ms RADIOLOG Y RESULTS QRS Duration 102 ms RADIOLO GY RESULTS QT 448 ms RADIOLOGY RESULTS QTc 458 ms RADIOLOGY RESULTS P [place] 54 degrees RADIOLOGY RESULTS R AXIS -5 degrees RADIOLOGY RESULTS T [place] 24 degrees RADIOLOGY RESULTS Interpretation ECG Sinus rhythm with 1st degree A-V block Septal infarct , age undetermined Abnormal ECG When compared with ECG of 02-Mar-2024 14:00, Septal infarct is now Present No significant change was found Confirmed by - EMERGENCY ROOM, PHYSICIAN ([id number]), advertising editor LIZANDRO ZABALA ([id number]) on 05/24/2024 6:44:53 AM RADIOLOGY RESULTS 05/23/2024 5:08 PM CDT 05/24/2024 6:44 AM CDT Pan Michelle MD ECG ORDERABLES RADIOLOGY RESULTS * (ABNORMAL) INR (05/23/2024 3:42 PM CDT) INR 1.29(H) 0.85 - 1.15 05/23/2024 4:21 PM CDT RH LABORATORY Blood BLOOD SPECIMEN / Unknown Venipuncture / Unknown 05/23/2024 3:42 PM CDT 05/23/2024 3:45 PM CDT Vi Coe DO LAB - BLOOD ORDE MYRANDA [facility] Acute Care Lab [address] Lab (1st floor, no room number) [place] [address], [facility] * CT Abdomen [...] 2:35 PM. MIKE LIPSCOMB MD SYSTEM ID: ??[id number] Narrative 05/23/2024 2:[address] ABDOMEN [...] veins which are not included in the yhhba-hp-ynov. MUSCULOSKELETAL: Stable degenerative changes at L4-L5 with [...] veins which are not included in the vhabj-pe-aoxk. 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 No destructive lesions in the bones. IMPRESSION: 1. 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 2. Other chronic findings as discussed above. Findings were discussed with Dr. Kenna Coe at 2:35 PM. MIKE LIPSCOMB MD SYSTEM ID: [id number] Vi Coe DO G CT ORDERABLE S * Adult Type and Screen (05/23/2024 2:07 PM CDT) ABO/RH(D) O POS 05/23/2024 1:37 PM CDT RH BLOOD BANK Antibody Screen Negative Negative 05/23/2024 1:37 PM CDT RH BLOOD BANK SPECIMEN EXPIRATION DATE [id number] 05/23/2024 1:37 PM CDT RH BLOOD BANK Blood BLOOD SPECIMEN / Unknown Venipuncture / Unknown 05/23/2024 2:07 PM CDT 05/23/2024 2:10 PM CDT Vi Coe DO LAB - BLOOD BANK TEST ORDER RH BLOOD BANK [address] [place] [address], [facility] * (ABNORMAL) CBC [...] Coe DO LAB - BLOOD ORDE MYRANDA [facility] Organization Address City/State/ZIP Co de Phone Number RH LABORATORY [facility] Acute Care Lab [address] Lab (1st floor, no room number) [place] [address], [facility] * Lactic acid whole blood (05/23/2024 1:50 PM CDT) Lactic Acid 0.9 0.7 - 2.0 mmol/L 05/23/2024 1:57 PM CDT RH LABORATORY Blood BLOOD SPECIMEN / Unknown Venipuncture / Unknown 05/23/2024 1:50 PM CDT 05/23/2024 1:54 PM CDT Vi Coe DO LAB - BLOOD ORDE RABLES RH LABORATORY [facility] Acute Care Lab [address] Lab (1st floor, no room number) [place] [address], [facility] * Blood Culture Peripheral Blood (05/23/2024 1:50 PM CDT) Culture No Growth 05/28/2024 4:06 PM CDT [facility] IDD LABORATORY Blood BLOOD SPECIMEN / Unknown Venipuncture / Unknown 05/23/2024 1:50 PM CDT 05/23/2024 1:53 PM CDT Vi Coe DO LAB - MICRO GENE RAL ORDERABLES [facility] LABORATORY [facility] Inf. Diseases Diag. Lab [address] [facility], [address] [place] [address], [facility] * (ABNORMAL) Comprehensive [...] LAB - BLOOD AMAIRANIE MYRANDA RH LABORATORY [facility] Acute Care Lab [address] [facility] Lab (1st floor, no room number) [place] [address], [facility] * (ABNORMAL) INR (05/23/2024 1:50 PM CDT) INR >10.00(HH) 0.85 - 1.15 05/23/2024 2:30 PM CDT RH LABORATORY Blood BLOOD SPECIMEN / Unknown Venipuncture / Unknown 05/23/2024 1:50 PM CDT 05/23/2024 1:55 PM CDT Vi Coe DO LAB - BLOOD ROVERTO WHITMORE [facility] Acute Care Lab [address] Lab (1st floor, no room number) [place] [address], [facility] documented in this [...] RN - Reason: Order parameters not met) 2150 (Not Given - Provider: Kristin Lauren RN [...] stools. documented in this encounter Care Teams Blue Line Trimmer Relationship Specialty Start Date End Date Cornell Butt PCP - General 06/24/11 documented as of this encounter
--- OUTSIDE RECORDS SUMMARY | 2024-07-15 14:30 | XMS_ITS | Encounter Summary ---
Author Organization [place] Address [address] [facility] [place] [address] Care Team Providers Care Photoengraver Apprentice Name Role Phone Preet Huff Primary Care Provider [phone] Jaxon Saravia MD Unavailable [phone] Encounter Details Date Type Department Care Team (Late st Contact Info) Description 10/20/2011 Hospital PHYS STANDARD [address] [phone] Wojciech Holman MD [facility] [address] [place] [id number] ESRD (end stage renal disease) on dialysis (H); Hyperkalemia Social History Tobacco Use Types Packs/Day Years Used Date Smoking Tobacco: Never Smokeless Tobacco: Never Alcohol Use Standard Drinks/Week Comments No 0 (1 standard drink = 0.6 oz pur e alcohol) Sex and Gender Information Value Date Recorded Sex Assigned at Not on file Gender Identity Male 12/05/2017 10:39 AM SITE SUPERINTENDENT Sexual Orientation Not on file documented as of this encounter Plan of Treatment Not on file documented as of this encounter Visit Diagnoses Diagnosis ESRD (end stage renal disease) on dialysis (H) End stage renal disease Hyperkalemia Hyperpotassemia documented in this encounter Care Teams Photoengraver Apprentice Relationship Specialty Start Date End Date Preet Huff PCP - General 06/24/11 Jaxon Saravia MD [address] [address] Assigned Heart and Vascular Provider 08/01/20 12/06/20 documented as of this encounter
--- OUTSIDE RECORDS SUMMARY | 2024-07-15 14:30 | XMS_ITS | Encounter Summary ---
Author Organization [place] Address [address] [place] [address] Care Team Providers Care Shipping/Receiving Manager Name Role Phone RefugioPreet Primary Care Provider [phone] Encounter Details Date Type Department Care Team (Late st Contact Info) Description 02/08/2022 External Order Results [facility] [address] [place] [address] Outside, Provider Social History Tobacco Use Types Packs/Day Years Used Date Smoking Tobacco: Never Smokeless Tobacco: Never Alcohol Use Standard Drinks/Week Comments No 0 (1 standard drink = 0.6 oz pur e alcohol) PHQ-2 Answer Date Recorded PHQ-2 Score 0 10/18/2018 Sex and Gender Information Value Date Recorded Sex Assigned at Not on file Gender Identity Male 12/05/2017 10:39 AM 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
--- OUTSIDE RECORDS SUMMARY | 2024-07-15 14:30 | XMS_ITS | Encounter Summary ---
Author Organization [place] Address [address] [facility] [place] [address] Care Team Providers Care Plumber Gasfitter Name Role Phone Preet Huff Primary Care Provider [phone] Jaxon Saravia MD Unavailable [phone] Encounter Details Date Type Department Care Team (Late st Contact Info) Description 05/07/2013 Orders Only [facility] Interventional Radiology 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
--- OUTSIDE RECORDS SUMMARY | 2024-07-15 14:30 | XMS_ITS | Encounter Summary ---
Author Organization [place] Address [address] [place] [address] Care Team Providers Care Rn Psychiatric Name Role Phone Preet Huff Primary Care Provider [phone] Encounter Details Date Type Department Care Team [...] Gender Identity Male 12/05/2017 10:39 AM LEAD MINER BLASTING Sexual Orientation Not on file documented as of this encounter Plan of Treatment Not on file documented as of this encounter Visit Diagnoses Not on filedocumented in this encounter Care Teams Rn Psychiatric Relationship Specialty Start Date End Date Preet Huff PCP - General 06/24/11 documented as of this encounter
--- OUTSIDE RECORDS SUMMARY | 2024-07-15 14:30 | XMS_ITS | Encounter Summary ---
Author Organization [place] Address [address] [place] [address] Care Team Providers Care Workforce Services Representative Name Role Phone Preet Huff Primary Care Provider Jaxon Saravia MD Unavailable [phone] Encounter Details Date Type Department Care Team (Late st Contact Info) Description 05/07/2013 Orders Only [facility] Interventional Radiology [address] [place] [phone] Layla Garcia RN Clotted dialysis access (H) (Primary Dx) Social History Tobacco Use Types Packs/Day Years Used Date Smoking Tobacco: Never Smokeless Tobacco: Never Alcohol Use Standard Drinks/Week Comments No 0 (1 standard drink = 0.6 oz pur e alcohol) Sex and Gender Information Value Date Recorded Sex Assigned at Not on file Gender Identity Male 12/05/2017 10:39 AM SUPERVISOR DIALS Sexual Orientation Not on file documented as of this encounter Plan of Treatment Not on file documented as of this encounter Visit Diagnoses Diagnosis Clotted dialysis access (H)- Primary Mechanical complication of other vascular device, implant, and graft documented in this encounter Care Teams Workforce Services Representative Relationship Specialty Start Date End Date Preet Huff PCP - General 06/24/11 Jaxon Saravia MD [address] [place] [address] Assigned Heart and Vascular Provider 08/01/20 2 documented as of this encounter
== END 2024-07-11 23:16 | disposition home or self-care (01) ==
LOC: AMB 07-15 14:25
PROVIDERS: PCP Internal Medicine Nephrology; Visit Provider Emergency Medicine Emergency Medical Services
DX: I95.9 Hypotension, unspecified (principal); R42 Dizziness and giddiness
CPT/HCPCS: A0425; A0427

== ENCOUNTER 2024-07-19 10:05 | Outpatient (CLI) | payer MEDICARE, MEDICAID, SELFPAY ==
--- OUTSIDE RECORDS SUMMARY | 2024-07-19 10:11 | XMS_ITS | Encounter Summary ---
Author Organization [facility] Address [address] [place] [address] Phone Care Team Providers Care Insight Director Name Role Phone Preet Huff MD Primary Care Provider [phone] Reason for Visit * Reason Comments Med Refill Encounter Details Date Type Department Care Team (Late st Contact Info) Description 02/12/2021 Refill [facility] [address] [facility] [address] [place], [place] [phone] María Elena Styles PA [address] [place] [address] Social History Tobacco Use Types Packs/Day Years Used Date Smoking Tobacco: Never Assessed Sex and Gender Information Value Date Recorded Sex Assigned at Not on file Gender Identity Not on file Sexual Orientation Not on file documented as of this encounter Plan of Treatment Not on file documented as of this encounter Visit Diagnoses Not on filedocumented in this encounter Care Teams Insight Director Relationship Specialty Start Date End Date Preet Huff MD [address] [place] [phone] PCP - General 10/31/19 documented as of this encounter
--- OUTSIDE RECORDS SUMMARY | 2024-07-19 10:11 | XMS_ITS | Clinical Summary ---
Author Organization [facility] Address [address] [place] [address] Phone Care Team Providers Care Senior Controls Technician Name Role Phone Preet Huff MD Primary Care Provider [phone] Medications Medication Sig Dispensed Refills Start Date End Date Status cholecalciferol (VITAMIN D-3) 1000 units tablet 1 tab qd 04/02/2015 Active B Complex Vitamins (VITAMIN B COMPLEX) tablet 1 tab po daily 12/08/2012 Act bill bisacodyl (DULCOLAX) 5 MG EC tablet 2 tabs po bid 04/02/2015 Active B Czczvbx-Q-Mxufx Acid (RENAL) 1 MG capsule 1 cap [...] 1982 Influenza Vaccine (#1) 2024 Care Teams Senior Controls Technician Relationship Specialty Start Date End Date Preet Huff MD [address] [place] [address] PCP - General 10/31/19
--- OUTSIDE RECORDS SUMMARY | 2024-07-19 10:11 | XMS_ITS | Clinical Summary ---
Author Organization [facility] [facility] Address [place], [place] [address] Care Team Providers Care Metal Painter Name Role Phone Preet Huff MD Primary [...] DVT of upper extremity (deep vein thrombosis) care home (current) use of anticoagulants 2010 Secondary hyperparathyroidism [...] Type Department Care Team Description 06/13/2024 Telephone [facility] [address] [place] [address] Preet Huff MD Follow Up (NO OPENINGS AT [facility]) 06/07/2024 2:30 PM CDT Office Visit [facility] [address] [place] [address] Lizandro Singh MD Sleep Follow-up 06/07/2024 2:05 PM CDT Office Visit [facility] [address] [place] [address] Preet Huff MD Hospital F/U (05/30 [facility] -groin infection) 06/07/2024 Travel 05/21/2024 Nurse Triage [facility] [address] [place] [address] Preet Huff MD Testicle Pain from Last [...] Completed 10/21/2009 Medical Devices Implanted Type Area Fruit Thinner Machine Operator Device Identifier Shelf Expiration Date Model / Serial / Lot Cath Peritoneal Cvd 62cm - [id number] Implanted:Qty: 1 on 10/31/2009 at [facility] N/A: Abdomen STIVEN 05/10/2014 [id number] 10 # / / [id number] Procedures Procedure Name Priority Date/Time Associated Diagnosis Comments LIPID PANEL W REFLEX MEASURED LDL Routine 11/08/2023 3:05 PM PLACEMENT SECRETARY Mixed hyperlipidemia COLONOSCOPY SCREENING Routine 09/24/2013 12:00 AM PLACEMENT SECRETARY Colon cancer screening ANTI HIV 1/2 Timed 03/04/2009 10:05 AM CDT Pre-Transplant Evaluation for End Stage Renal Disease ANTI HCV Timed 03/04/2009 10:05 AM CDT Pre-Transplant Evaluation for End Stage Renal Disease from Last 3 Months or Most Recently Relevant to Health Maintenance Results * (ABNORMAL) LIPID PANEL W REFLEX MEASURED LDL (11/08/2023 3:05 PM PLACEMENT SECRETARY) CHOLESTEROL,TOTAL 90(L) 100 - 199 mg/dL 11/09/2023 10:41 AM PLACEMENT SECRETARY [facility] Comment: Cholesterol, Total Reference Ranges Desirable <200 mg/dL Borderline 200-239 mg/dL High >=240 mg/dL TRIGLYCERIDES 104 <150 mg/dL 11/09/2023 10:41 AM PLACEMENT SECRETARY [facility] HDL CHOLESTEROL 30(L) >40 mg/dL 10:41 AM PLACEMENT SECRETARY [facility] NON-HDL CHOLESTEROL 60 <145 mg/dl 11/09/2023 10:41 AM PLACEMENT SECRETARY [facility] CHOL/HDL RATIO 3.00 <4.50 11/09/2023 10:41 AM PLACEMENT SECRETARY [facility] LDL CHOLESTEROL 39 <=130 mg/dL 11/09/2023 10:41 AM [facility] VLDL CHOLESTEROL 21 <=30 mg/dL 11/09/2023 10:41 AM PLACEMENT SECRETARY [facility] PROVIDER ORDERED STATUS RANDOM 11/09/2023 10:41 AM [facility] Blood BLOOD SPECIMEN / Unknown Butterfly / Unknown 11/08/2023 3:05 PM PLACEMENT SECRETARY 11/08/2023 3:08 PM PLACEMENT SECRETARY Preet Huff MD [facility] [address] [place] [address], * COLONOSCOPY SCREENING (09/24/2013 12:00 AM PLACEMENT SECRETARY) Narrative 09/24/2013 12:00 AM PLACEMENT SECRETARY Procedure Note Scanner - 09/24/2013 12:00 AM CST Preet Huff MD GI PROCEDURE O RD * ANTI HCV (03/04/2009 10:05 AM CDT) ANTI HCV Non-reacti ve [facility] Blood specimen (specimen) BLOOD SPECIMEN / Unknown 03/04/2009 10:05 AM CDT 03/04/2009 9:57 AM CDT Alfredo Juarez MD SEND OUTS [facility] [place]NAL ZIP [address] [address] * ANTI HIV 1/2 (03/04/2009 10:05 AM CDT) ANTI HIV 1/2 Non-reacti ve [facility] Blood specimen (specimen) BLOOD SPECIMEN / Unknown 03/04/2009 10:05 AM CDT 03/04/2009 9:57 AM CDT Alfredo Juarez MD SEND OUTS [facility] [place]NAL ZIP [address] [place] [phone] from Last 3 Months or Most Recently Relevant to Health Maintenance Advance Directives Documents on File Type Date Recorded Patient Ornament Setter Expl anation Power of Document Control Clerk 09/04/2014 12:00 AM 07/2009 * Full Code [...] 5:57 PM 03/16/2009 5:32 PM Care Teams Metal Painter Relationship Specialty Start Date End Date Preet Huff MD [address] [place] [address] PCP - General 12/02/06
--- OUTSIDE RECORDS SUMMARY | 2024-07-19 10:11 | XMS_ITS | Encounter Summary ---
Author Organization [facility] Address [address] [place] [phone] Phone Care Team Providers Care Senior Dynamics Crm Developer Name Role Phone Preet Huff MD Primary Care Provider [phone] Reason for Visit * Reason Comments Med Refill Encounter Details Date Type Department Care Team (Late st Contact Info) Description 03/23/2021 Refill [facility] [address] [facility] [address] [place], [place] [address] María Elena Styles PA [address] [facility] [address] [place] [address] Social History Tobacco Use Types Packs/Day Years [...] on filedocumented in this encounter Care Teams Senior Dynamics Crm Developer Relationship Specialty Start Date End Date Preet Huff MD [address] [place] [phone] PCP - General 10/31/19 documented as of this encounter
--- OUTSIDE RECORDS SUMMARY | 2024-07-19 10:12 | XMS_ITS | Encounter Summary ---
Author Organization [place] Address [address] [facility] [place] [address] Care Team Providers Care Network Operations Project Manager Name Role Phone HuffPreet cool Primary Care Provider [phone] Encounter Details Date Type Department Care Team [...] in an abandoned building, in an overnight senior care, or couch-surfing.) Patient unable to answer 05/30/2024 [...] file Gender Identity Male 12/05/2017 10:39 AM RETAIL GENERAL MANAGER Sexual Orientation Not on file documented as of this encounter Plan of Treatment Not on file documented as of this encounter Visit Diagnoses Not on filedocumented in this encounter Care Teams Network Operations Project Manager Relationship Specialty Start Date End Date Preet Huff PCP - General 06/24/11 documented as of this encounter
--- OUTSIDE RECORDS SUMMARY | 2024-07-19 10:12 | XMS_ITS | Encounter Summary ---
Author Organization [place] Address [address] [facility] [place] [place] [address] Care Team Providers Care Bone Tender Name Role Phone Preet Huff Hans Primary Care Provider [phone] Reason for Visit * Reason Comments Altered Mental Status Encounter Details Date Type Department Care Team (Late st Contact Info) Description 07/12/2024 12:18 AM CDT - 07/12/2024 7:24 AM CDT [facility] Emergency Dept [address] [place] [address] [phone] Avery Fernando MD [facility] [address] [place], [place] [id number] Rand Schwab MD [facility] [address] [id number] Transient hypotension; ESRD (end stage renal disease) [...] in an abandoned building, in an overnight chcf, or couch-surfing.) Patient unable to answer 05/30/2024 [...] file Gender Identity Male 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 NECK CTA: 1. Normal configuration [...] vascular malformation involving the arteries of the comanche of [place]. NECK CTA: 1. Normal configuration [...] with 1st degree AVB Rate 65 bpm. WY interval 234 ms. QRS duration 112 ms. QT/QTc 430/447 ms. P-R-T axes 53 10 51. Independent Interpretation None ED Course Medications Administered Medications - No data to display Procedures Procedures Discussion of Management Neurology, stroke neurology ED Course 005 Exam Additional Documentation None Medical Decision Making / Diagnosis [facility] Diagnoses: None MIPS None MDM Herminio [...] RN - 07/12/2024 12:18 AM CDT Bed: [facility] Expected date: Expected time: Means of arrival: Comments: 3 ED RNs @2300, 11 pts max documented in this encounter Plan of Treatment Not on file documented as of this encounter Procedures Procedure Name Priority Date/Time Associated Diagnosis Comments TROPONIN T, HIGH SENSITIVITY STAT 07/12/2024 4:23 AM CDT XR CHEST 2 VIEWS STAT 07/12/2024 3:[address] HEAD PERFUSION W CONTRAST STAT 07/12/2024 1:38 AM CDT CTA HEAD NECK W CONTRAST [...] T, High Sensitivity (07/12/2024 4:23 AM CDT) [facility] Troponin T, High Sensitivity 41(H) <=22 ng/L [...] Fernando MD LAB - BLOOD ORDERABL ES [facility] Acute Care Lab [address] Lab (1st floor, no room number) [place] [address], [facility] * XR Chest 2 Views (07/12/2024 3:15 AM CDT) Anatomical Region Laterality Modality Chest Digital Radiogra phy 07/12/2024 3:15 AM CDT Impressions 07/12/2024 3:18 AM CDT IMPRESSION: Low lung volumes but the lungs appear clear. Normal heart size and pulmonary vascularity. No pleural fluid or pneumothorax. Narrative 07/12/2024 3:18 AM CDT EXAM: XR CHEST 2 VIEWS LOCATION: [facility] DATE: 07/12/2024 INDICATION: ams COMPARISON: 03/11/2024. Procedure Note Pavan Sanon MD - 07/12/2024 EXAM: XR CHEST 2 VIEWS LOCATION: [facility] DATE: 07/12/2024 INDICATION: ams COMPARISON: 03/11/2024. IMPRESSION: Low lung volumes but the lungs appear clear. Normal heart sizeand pulmonary vascularity. No pleural fluid or pneumothorax. Avery Fernando MD IMG DIAGNOSTIC IMAGI NG ORDERABLES * CT Head Perfusion w Contrast (07/12/2024 1:38 AM CDT) Anatomical Region Laterality Modality Head, SUBRAD CT NEURO, SUBRAD CT NEURO, UMP CT N EURO Computed Tomography 07/12/2024 1:38 AM CDT Impressions 07/17/2024 12:49 PM CDT IMPRESSION: HEAD CT: 1. ??No CT finding of a mass, hemorrhage or focal area suggestive of acute infarct. 2. ??Mild age-related changes. HEAD CTA: 1. 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 NECK CTA: 1. ??Normal configuration [...] Fernando at 1:49 am on 07/12/2024. Narrative 07/17/2024 12:49 PM CDT EXAM: CT HEAD W/O CONTRAST, CTA HEAD NECK W CONTRAST LOCATION: [facility] DATE: 07/12/2024 INDICATION: ams and weakness. [...] infinite Procedure Note Alejandra Infante MD - 07/17/2024 EXAM: CT HEAD W/O CONTRAST, CTA HEAD NECK W CONTRAST LOCATION: [facility] DATE: 07/12/2024 INDICATION: ams and weakness. [...] vascular malformation involving the arteries of the comanche ofWillis. NECK CTA: 1. Normal configuration of [...] 1:49 am on 07/12/2024. 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 NECK CTA: 1. ??Normal configuration [...] CONTRAST, CTA HEAD NECK W CONTRAST LOCATION: [facility] DATE: 07/12/2024 INDICATION: ams and weakness. [...] CONTRAST, CTA HEAD NECK W CONTRAST LOCATION: [facility] DATE: 07/12/2024 INDICATION: ams and weakness. [...] vascular malformation involving the arteries of the comanche of[place]is. NECK CTA: 1. Normal configuration of [...] vascular malformation involving the arteries of the comanche of [place]. NECK CTA: 1. ??Normal configuration [...] CONTRAST, CTA HEAD NECK W CONTRAST LOCATION: [facility] DATE: 07/12/2024 INDICATION: ams and weakness. [...] CONTRAST, CTA HEAD NECK W CONTRAST LOCATION: [facility] DATE: 07/12/2024 INDICATION: ams and weakness. [...] vascular malformation involving the arteries of the comanche of[place]is. NECK CTA: 1. Normal configuration of [...] CDT RH BLOOD BANK SPECIMEN EXPIRATION DATE [id number] 07/12/2024 1:01 AM CDT RH BLOOD BANK Blood BLOOD SPECIMEN / Unknown Venipuncture / Unknown 07/12/2024 1:14 AM CDT 07/12/2024 1:23 AM CDT Avery Fernando MD LAB - BLOOD BANK SHANNON T ORDER BLOOD BANK [address] [place] [address], [facility] * Extra Red Top Tube (07/12/2024 1:14 AM CDT) Hold Specimen JIC 07/12/2024 2:31 AM CDT [facility] Blood BLOOD SPECIMEN / Unknown Venipuncture / Unknown 07/12/2024 1:14 AM CDT 07/12/2024 1:23 AM CDT Avery Fernando MD LAB - BLOOD ORDERABL ES LABORATORY [facility] Acute Care Lab [address] Lab (1st floor, no room number) [place] [address], [facility] * (ABNORMAL) CBC with platelets [...] Fernando MD LAB - BLOOD ORDERABL ES [facility] Lab [address] Lab (1st floor, no room number) [address] * (ABNORMAL) INR (07/12/2024 1:14 AM CDT) INR 4.68(H) 0.85 - 1.15 07/12/2024 1:49 AM CDT [facility] Blood BLOOD SPECIMEN / Unknown Venipuncture / Unknown 07/12/2024 1:14 AM CDT 07/12/2024 1:23 AM CDT Avery Fernando MD LAB - BLOOD ORDERABL ES Performing Organization Address City/[facility]/ZIP Co de Phone Number [facility] Lab [address] Lab (1st floor, no room number) [address] * Blood Culture Peripheral Blood (07/12/2024 1:14 AM CDT) Culture No Growth 07/17/2024 4:46 AM CDT [facility] Blood BLOOD SPECIMEN / Unknown Venipuncture / Unknown 07/12/2024 1:14 AM CDT 07/12/2024 1:23 AM CDT Avery Fernando MD LAB - MICRO GENERAL ORDERABLES [facility] Inf. Diseases Diag. Lab [address] [facility] [place] [address], [facility] * Hepatic function panel (07/12/2024 [...] Fernando MD LAB - BLOOD ORDERABL ES [facility] Acute Care Lab [address] Lab (1st floor, no room number) [place] [address] * Lactic acid whole blood (07/12/2024 1:14 AM CDT) Lactic Acid 0.8 0.7 - 2.0 mmol/L 07/12/2024 1:27 AM CDT [facility] Blood BLOOD SPECIMEN / Unknown Venipuncture / Unknown 07/12/2024 1:14 AM CDT 07/12/2024 1:23 AM CDT Avery Fernando MD LAB - BLOOD ORDERABL ES [facility] Acute Care Lab [address] Lab (1st floor, no room number) [place] [address], [facility] * (ABNORMAL) Troponin T, High Sensitivity (07/12/2024 1:14 AM CDT) Troponin T, High Sensitivity 43(H) <=22 ng/L [...] MD LAB - BLOOD ORDERABL ES LABORATORY [facility] Acute Care Lab [address] Lab (1st floor, no room number) [place] [address], [facility] * (ABNORMAL) Basic metabolic panel (07/12/2024 1:14 AM CDT) Sodium 133(L) 135 - 145 mmol/L 07/12/2024 1:43 AM CDT LABORATORY Potassium 3.5 3.4 - 5.3 mmol/L 07/12/2024 1:43 AM CDT LABORATORY Chloride 93(L) 98 - 107 mmol/L 07/12/2024 1:43 AM CDT LABORATORY Carbon Dioxide (CO2) 26 22 - 29 mmol/L 07/12/2024 1:43 AM CDT [facility] Anion Gap 14 7 - 15 mmol/L 07/12/2024 1:43 AM CDT [facility] Urea Nitrogen 34.9(H) 8.0 - 23.0 [...] Fernando MD LAB - BLOOD ORDERABL ES [facility] Acute Care Lab [address] Lab (1st floor, no room number) [place] [address], [facility] * (ABNORMAL) Glucose by meter (07/12/2024 1:13 AM CDT) GLUCOSE BY METER POCT 133(H) 70 - 99 mg/dL 07/12/2024 1:20 AM CDT LABORATORY POC Blood, venous BLOOD SPECIMEN / Unknown 07/12/2024 1:13 AM CDT 07/12/2024 1:20 AM CDT Avery Fernando MD LAB - BEAKER POCT LABORATORY [facility] Acute Care Lab [address] Lab (1st floor, no room number) [place] [address], [facility] * EKG 12-lead, tracing only (07/12/2024 12:24 AM CDT) Systolic Blood Pressure mmHg RADIOLOGY RESULTS Diastolic Blood Pressure mmHg RADIOLOGY RESULTS Ventricular Rate 65 BPM RAD IOLOGY RESULTS Atrial Rate 65 BPM RADIOLOG Y RESULTS WY Interval 234 ms RADIOLOG Y RESULTS QRS Duration 112 ms RADIOLO GY RESULTS QT 430 ms RADIOLOGY RESULTS QTc 447 ms RADIOLOGY RESULTS P Ira 53 degrees RADIOLOGY RESULTS R AXIS 10 degrees RADIOLOGY RESULTS T Ira 51 degrees RADIOLOGY RESULTS Interpretation ECG Sinus rhythm with 1st degree A-V block Otherwise normal ECG When compared with ECG of 23-May-2024 17:08, Criteria for Septal infarct are no longer Present Unconfirmed report - interpretation of this ECG is computer generated - see medical record for final interpretation Confirmed by - EMERGENCY ROOM, PHYSICIAN ([id number]), manuscript editor YISSEL VELASQUEZ ([id number]) on 07/12/2024 6:51:31 AM RADIOLOGY RESULTS 07/12/2024 [...] As instructed, 100 mL, ONCE, On Padmaja 24 at 0115, For 1 dose, For use [...] 0118 ($Given - Provi norah: Tena E Clintoske - Comment: added perfusion ct) meclizine (ANTIVERT) [...] 0119 ($Given - Provi norah: Tena E Clintostyree) sodium chloride 0.9% BOLUS 500 mL (COMPLETED) Intravenous, 500 mL, ONCE, at 500 mL/hr, Administer over 1 Hours, On Padmaja 07/12/24 at 0115, For 1 dose 0156 ($New Bag - Pro vider: Aster Menjivar RN)0300 (Stopped - Provider: Aster Menjivar RN) Linked Groups Order Group 1: iopamidol ([id number]) solution 67 mL (COMPLETED)Jump to med 67 mL, Intravenous, ONCE, On Padmaja 10/3/24 at 0115, For 1 dose, To be [...] scan. documented in this encounter Care Teams Bone Tender Relationship Specialty Start Date End Date Preet Huff PCP - General 06/24/11 documented as of this encounter
--- OUTSIDE RECORDS SUMMARY | 2024-07-19 10:12 | XMS_ITS | Referral Summary ---
Author Organization [facility] Address [address] [place] [address] Care Team Providers Care Cycle Consultant Name Role Phone Preet Huff Hans Primary Care Provider [phone] Encounters Date Type Department Care Team Description 07/12/2024 Travel 07/12/2024 12:18 AM CDT - 07/12/2024 7:24 AM CDT Emergency [facility] Emergency Dept [address] [place] [address] Avery Fernando MD Richardson, Elizabeth, MD Transient hypotension; ESRD (end stage renal disease) on dialysis (H); Supratherapeutic INR Discharge Disposition: Home or Self Care 05/23/2024 1:14 PM CDT - 05/30/2024 5:21 PM CDT Hospital Encounter [facility] 5 Medical Surgical [address] [place] [address] Vi Hernandez DO Cabrera, Jesus F, MD Supratherapeutic INR; Mita's gangrene of scrotum (H) Discharge Disposition: Home or Self Care 05/23/2024 6:02 PM CDT Anesthesia Event [facility] PeriOp Services [address] [place] [address] Tom Castro MD Larson, Matthew Ray, MD 05/23/2024 6:00 PM CDT - 05/23/2024 7:00 PM CDT Surgery [facility] [address] [place] [address] Lizandro Barron MD Incision and [...] mg by mouth every evening Active B Tjzchuo-L-Fnosq Acid (WESCAPS PO) Take 1 capsule by [...] in an abandoned building, in an overnight halfway, or couch-surfing.) Patient unable to answer 05/30/2024 [...] file Gender Identity Male 12/05/2017 10:39 AM HYPERBARIC NURSE Sexual Orientation Not on file Last Filed [...] on file Medical Devices Implanted Type Area Dental Chairside Assistant Device Identifier Shelf Expiration Date Model / Serial / Lot Graft Patch Vasc Xenosure Biologic 0.8x08cm 0.8p8 Implanted:Qty: 1 on 12/16/2017 by Jaxon Saravia MD at [facility] Bone/Tis rocco/Biol ogic Left: Iliac/Fem orals [employer] IN 06/06/2023 0.8P8 / / [id number] Graft Pericardium 8x0.8cm Vascu-Guard Implanted:Qty: 1 on 10/20/2011 at [facility] Right: Arm [employer] 01/16/2016 [id number] / / [id number] Femoral Popliteal Artery Implanted:Qty: 1 on 05/03/2012 by Jaxon Saravia MD at [facility] Right: Groin 12/07/2021 [id number] / [id number] / Description:CADAVER FEMORAL ARTERY RINSED IN A AND B SOLUTION: A SOLUTION LOT #[id number] EXPIRATION DATE 01/09/2014 B SOLUTION LOT #[id number] EXPIRATION DATE 11/15/2013 Graft Propaten Taper 4-8ncm26te [id number] Implanted:Qty: 1 on 08/09/2012 by Jaxon Saravia MD at [facility] Right: Leg 10/24/2015 [id number] / / [id number] Graft Propaten Taper 4-5gsm77ub [id number] Implanted:Qty: 1 on 06/20/2013 by Jaxon Saravia MD at [facility] Left: Groin [employer] 02/07/2017 [id number] / / [id number] Graft Pericardium 8x0.8cm Vascu-Guard Implanted:Qty: 1 on 05/08/2014 by Jaxon Saravia MD at [facility] Left: Leg [employer] 11/26/2018 [id number] / PN# [id number] / [id number] Procol Vascular Bioprosthesis Implanted:Qty: 1 on 07/02/2015 by Jaxon Saravia MD at [facility] Left: Groin 12/16/2018 [id number] -[id number] / [id number] -[id number] / Procol Vascular Bioprosthesis Implanted:Qty: 1 on 08/13/2015 by Jaxon Saravia MD at [facility] Left: Groin 12/16/2018 [id number] -N / [id number] / Graft Vasc Bioprosthesis Procol 1ogl25se [id number] Implanted:Qty: 1 on 03/05/2016 by Jaxon Saravia MD at [facility] Left: Leg [employer] IN 02/03/2019 [id number] -[id number] / [id number] / Procedures Procedure [...] CDT LIPID PROFILE STAT 12/07/2017 12:34 PM HYPERBARIC NURSE 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 NECK CTA: 1. 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 NECK CTA: 1. Normal configuration of [...] 1:49 am on 07/12/2024. 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 NECK CTA: 1. 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 NECK CTA: 1. 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 NECK CTA: 1. 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 NECK CTA: 1. Normal configuration of [...] 1:49 am on 07/12/2024. Avery Fernando MD IM CT ORDERABLES * Extra Red Top Tube (07/12/2024 1:14 AM CDT) [facility] Hold Specimen [facility] 07/12/2024 2:31 AM CDT [facility] LABORATORY Blood BLOOD SPECIMEN / Unknown Venipuncture / Unknown 07/12/2024 1:14 AM CDT 07/12/2024 1:23 AM CDT Avery Fernando MD LAB - BLOOD ORDERABL ES [facility] LABORATORY [facility] [address] Lab (1st floor, no room number) [place] [address], [facility] * [...] [facility] [address] [facility] Lab (1st floor, no room number) [place] [address], [facility] * Adult Type and Screen (07/12/2024 1:14 AM CDT) Only the most recent of2 resultswithin the time period is included. ABO/RH(D) O POS 07/12/2024 1:01 AM CDT RH BLOOD BANK Antibody Screen Negative Negative 07/12/2024 1:01 AM CDT RH BLOOD BANK SPECIMEN EXPIRATION DATE [id number] 07/12/2024 1:01 AM CDT RH BLOOD BANK Blood BLOOD SPECIMEN / Unknown Venipuncture / Unknown 07/12/2024 1:14 AM CDT 07/12/2024 1:23 AM CDT Avery Fernando MD LAB - BLOOD BANK SHANNON T ORDER Performing Organization Address [facility] Co de Phone Number BLOOD BANK [address] * (ABNORMAL) INR (07/12/2024 1:14 AM CDT) Only the most recent of11 resultswithin the time period is included. INR 4.68(H) 0.85 - 1.15 07/12/2024 1:49 AM CDT [facility] LABORATORY Blood BLOOD SPECIMEN / Unknown Venipuncture / Unknown 07/12/2024 1:14 AM CDT 07/12/2024 1:23 AM CDT Avery Fernando MD LAB - BLOOD ORDERABL ES Performing Organization Address [facility] Co de Phone Number LABORATORY [facility] [address] Lab (1st floor, no room number) [address] * Lactic acid whole blood (07/12/2024 1:14 AM CDT) Only the most recent of2 resultswithin the time period is included. Lactic Acid 0.8 0.7 - 2.0 mmol/L 07/12/2024 1:27 AM CDT LABORATORY Blood BLOOD SPECIMEN / Unknown Venipuncture / Unknown 07/12/2024 1:14 AM CDT 07/12/2024 1:23 AM CDT Avery Fernando MD LAB - BLOOD ORDERABL ES Performing Organization Address [facility]/ZIP Co de Phone Number LABORATORY [facility] [address] [facility] Lab (1st floor, no room number) [address] * Hepatic function panel (07/12/2024 1:14 [...] [facility] [address] Lab (1st floor, no room number) [place] [address] * Blood Culture Peripheral Blood (07/12/2024 1:14 AM CDT) Only the most recent of2 resultswithin the time period is included. Culture No Growth 07/17/2024 4:46 AM CDT [facility] Blood BLOOD SPECIMEN / Unknown Venipuncture / Unknown 07/12/2024 1:14 AM CDT 07/12/2024 1:23 AM CDT Avery Fernando MD LAB - MICRO GENERAL ORDERABLES [facility] Inf. Diseases Diag. Lab [address] [facility], [address] [place] [address] * (ABNORMAL) Basic metabolic panel (07/12/2024 1:14 [...] 07/12/2024 1:43 AM CDT LABORATORY Comment:eGFR calculated us2020 CKD-EPI equation. Calcium 8.8 8.8 - 10.4 [...] [facility] [address] [facility] ([facility]st floor, no room number) [place] [address], [facility] * (ABNORMAL) Glucose by meter (07/12/2024 1:13 AM CDT) Only the most recent of41 resultswithin the time period is included. GLUCOSE BY METER POCT 133(H) 70 - 99 mg/dL 07/12/2024 1:20 AM CDT LABORATORY POC Blood, venous BLOOD SPECIMEN / Unknown 07/12/2024 1:13 AM CDT 07/12/2024 1:20 AM CDT Avery Fernando MD LAB - BEAKER POCT [facility] LABORATORY POC [facility] [address] Lab (1st floor, no room number) [place] [address] * EKG 12-lead, tracing only (07/12/2024 12:24 [...] RESULTS QTc 447 ms RADIOLOGY RESULTS P [place] 53 degrees RADIOLOGY RESULTS R AXIS 10 degrees RADIOLOGY RESULTS T [place] 51 degrees RADIOLOGY RESULTS Interpretation ECG Sinus rhythm with 1st degree A-V block Otherwise normal ECG When compared with ECG of 23-May-2024 17:08, Criteria for Septal infarct are no longer Present Unconfirmed report - interpretation of this ECG is computer generated - see medical record for final interpretation Confirmed by - EMERGENCY ROOM, PHYSICIAN ([id number]), content editor YISSEL VELASQUEZ ([id number]) on 07/12/2024 6:51:31 AM RADIOLOGY RESULTS 07/12/2024 12:2 4 AM CDT 07/12/2024 6:51 AM CDT Avery Fenrando MD ECG ORDERABLES RADIOLOGY RESULTS * (ABNORMAL) [...] [facility] [address] Lab (1st floor, no room number) [place] [address] * Extra Green Top Tube (LAB USE ONLY) (05/28/2024 6:07 AM CDT) Only the most recent of2 resultswithin the time period is included. Pathologist [facility] Hold Specimen [facility] 05/28/2024 7:32 AM CDT RH LABORATORY Blood STRUCTURE OF LEFT HAND / Unknown Venipuncture / Unknown 05/28/2024 6:07 AM CDT 05/28/2024 6:17 AM CDT Antonino Cheek MD LAB - BLOOD ORDERABL ES LABORATORY [facility] [address] Lab (1st floor, no room number) [place] [phone] [place] [address] * Extra Purple Top EDTA (LAB USE [...] [facility] [address] Lab (1st floor, no room number) [place] [phone] * (ABNORMAL) Hemoglobin (05/28/2024 6:07 AM CDT) Hemoglobin 7.7(L) 13.3 - 17.7 g/dL 05/28/2024 9:02 AM CDT LABORATORY Blood STRUCTURE OF LEFT HAND / Unknown Venipuncture / Unknown 05/28/2024 6:07 AM CDT 05/28/2024 6:17 AM CDT Dileep Anders MD LAB - BLOOD ORD ERABLES LABORATORY [facility] [address] Lab (1st floor, no room number) [place] [phone] * Vancomycin level (05/25/2024 2:04 PM CDT) [...] [facility] [address] Lab (1st floor, no room number) [place] [address] * Hepatitis B Surface Antibody (05/25/2024 9:25 [...] ORDERABL ES U LABORATORY [facility] [place] [facility] [address] [facility], [address] [place] [address], [facility] * Hepatitis B surface antigen (05/25/2024 9:25 AM CDT) Hepatitis B Surface Antigen Nonreactive Nonreactive 05/25/2024 2:23 PM CDT [facility] Blood BLOOD SPECIMEN / Unknown Venipuncture / Unknown 05/25/2024 9:25 AM CDT 05/25/2024 10:13 AM CDT Jose Enrique Naylor MD LAB - BLOOD ORDERABL ES [facility] [place] [facility] [address] [facility] [address] [facility], [address] [place] [address], [facility] * (ABNORMAL) Comprehensive metabolic panel (05/24/2024 6:09 [...] [facility] [address] [facility] Lab (1st floor, no room number) [place] [address] * (ABNORMAL) Tissue Aerobic Bacterial Culture Routine [...] [place] [facility] [address] [facility], [address] [place] [phone] * (ABNORMAL) Gram Stain (05/23/2024 6:42 PM CDT) [facility] Culture See corresponding culture for results [...] PM CDT 05/23/2024 6:46 PM CDT Lizandro Barrno MD LAB - MICRO GENERAL ORDERABLES [facility] Inf. Diseases Diag. Lab [address] [facility], [address] * Anaerobic Bacterial Culture Routine (05/23/2024 6:42 PM CDT) Culture 4+ Mixed Aerobic and Anaerobic dev JOJO 05/25/2024 2:01 PM CDT [facility] Comment:No predominant organ ism Tissue SCROTAL STRUCTURE / Unknown Non-blood Collection / Unknown 05/23/2024 6:42 PM CDT 05/23/2024 6:46 PM CDT Lizandro Barron MD LAB - MICRO GENERAL ORDERABLES Performing Organization Address City/[facility]/ZIP Co de Phone Number [facility] Inf. Diseases Diag. Lab [address] [facility], [address] [place] [id number] * ANE AIRWAY ETT PERFORMABLE (05/23/2024 6:21 PM CDT) Narrative Donnell Ramos APRN CRNA - 05/23/2024 6:21 PM CDT Donnell Ramos APRN CRNA ? 05/23/2024 ??6:33 PM Airway ? Patient location during procedure: OR ? Procedure Start/Stop Times: 05/23/2024 6:21 PM Staff - ? EXTRUSION OPERATOR: Yasemin Almaguer APRN CRNA ? Performed By: [...] Time: 05/23/2024 6:21 PM Tom Castro MD [place] [facility] * CT Abdomen Pelvis w Contrast [...] 2:35 PM. MIKE SANTANA MD SYSTEM ID: ??[id number] Narrative 05/23/2024 2:[address] ABDOMEN [...] veins which are not included in the vuyzz-iv-gfal. MUSCULOSKELETAL: Stable degenerative changes at L4-L5 with [...] veins which are not included in the uhztz-hk-suyv. 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 No destructive lesions in the bones. IMPRESSION: 1. 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 2. Other chronic findings as discussed above. Findings were discussed with Dr. Kenna Coe at 2:35 PM. MIKE SANTANA MD SYSTEM ID: [id number] Vi Kenna Coe DO IMG CT ORDERABLE S * (ABNORMAL) Renal panel (03/12/2024 6:06 AM [...] Earl MD LAB - BLOOD UBALDO CARTER [facility] Organization Address City/State/ZIP Co de Phone Number LABORATORY [facility] [address] Lab (1st floor, no room number) [place] [address] * COLONOSCOPY (03/08/2024 1:04 PM CDT) [facility] COLONOSCOPY [facility] Patient Name: Herminio Victor ? Procedure [...] continuously. The ?Olympus Adult Colonoscope, Model # [id number], ?Censitrac # [id number] was introduced through the ?anus and advanced [...] Note Initiated On: 03/08/2024 1:04 PM MRN: ?[id number] Procedure Date: ? 03/08/2024 1:04:50 PM Scope Withdrawal Time: 0 hours 11 minutes 55 seconds Total Procedure Duration: 0 hours 17 minutes 23 seconds Estimated Blood Loss: ? Scope In: 1:12:27 PM Scope Out: 1:29:50 PM RADIOLOGY RESULTS 03/08/2024 1:04 PM CDT Eileen Earl MD PROCEDURES RADIOLOGY RESULTS * (ABNORMAL) Occult blood stool (02/24/2024 11:31 AM CDT) Pathologist [facility] Occult Blood Positive(A ) Negative JOJO 02/24/2024 11:40 AM CDT LABORATORY Stool RECTAL CONTENTS / Unknown Non-blood Collection / Unknown 02/24/2024 11:31 AM CDT 02/24/2024 11:38 AM CDT Jae Noel MD LAB - STOOLS ORDERAB LES LABORATORY [facility] [address] [facility] Lab (1st floor, no room number) [place] [address], [facility] * Hepatitis C (HIM External Result) (01/04/2022 12:00 PM CDT) Pathologist [facility] Hep C HIM See Scanned Document EXTERNAL LAB Comment:Nonreactive 01/04/2022 12:0 0 PM CDT Narrative EXTERNAL LAB - 01/04/2022 12:00 PM CDT LAB RESULT [facility] [address] [place] [address] Provider Outside LAB - HIM EXTERNAL R ESULT EXTERNAL LAB External Lab * (ABNORMAL) Lipid panel (12/07/2017 12:34 PM HYPERBARIC NURSE) Pathologist [facility] Cholesterol 115 <200 mg/dL 12/07/2017 1:27 PM HYPERBARIC NURSE [facility] Triglycerides 84 <150 mg/dL 12/07/2017 1:[address] [facility] HDL Cholesterol 37(L) >39 mg/dL 8 1:[address] [facility] LDL Cholesterol Calculated 61 <100 mg/dL 12/07/2017 1:[address] [facility] Comment:Desirable: <100 mg/d l Non HDL Cholesterol 78 <130 mg/dL 12/07/2017 1:[address] [facility] Blood specimen (specimen) 12/07/2017 12:34 PM HYPERBARIC NURSE 12/07/2017 12:58 PM HYPERBARIC NURSE Michele Fuentes MD LAB - BLOOD ORD ERABLES [facility] [address] [place] [address], [facility] [phone] from Last 3 Months or Most Recently Relevant to Health Maintenance Advance Directives For more information, please contact: [phone] * Full Code (Latest Code Status on [...] 12:25 PM 01/25/2019 11:45 AM Care Teams Cycle Consultant Relationship Specialty Start Date End Date Preet Huff PCP - General 06/24/11
--- OUTSIDE RECORDS SUMMARY | 2024-07-19 10:12 | XMS_ITS | Clinical Summary ---
Author Organization [place] Address [facility] [place] [address] Care Team Providers Care Manual Arts Teacher Name Role Phone Preet Huff Primary Care Provider [phone] Allergies Active Allergy Reactions Criticality Noted Date [...] mg by mouth every evening Active B Fdfwxba-T-Imrsa Acid (WESCAPS PO) Take 1 capsule by [...] CDT - 07/12/2024 7:24 AM CDT Emergency [facility] Emergency Dept [address] [place] [address] Avery Fernando MD Richardson, Elizabeth, MD Transient hypotension; ESRD (end stage renal disease) on dialysis (H); Supratherapeutic INR Discharge Disposition: Home or Self Care 07/12/2024 Travel 05/23/2024 6:02 PM CDT Anesthesia Event [facility] PeriOp Services [address] [place] [address] Tom Castro MD Larson, Matthew Ray, MD 05/23/2024 6:00 PM CDT - 05/23/2024 7:00 PM CDT Surgery [facility]iOp Services [address] [place] [address] Lizandro Barron MD Incision and drainage, debridement of scrotal skin and subcutaneous tissues for necrotizing soft tissue infection of the scrotum 05/23/2024 1:14 PM CDT - 05/30/2024 5:21 PM CDT Hospital Encounter [place] [address] [facility] [address] [place] [address] Vi Hernandez DO Cabrera, Jesus [...] file Gender Identity Male 12/05/2017 10:39 AM MARINE STEAM FITTER Sexual Orientation Not on file Last Filed [...] this topic Medical Devices Implanted Type Area Hemming And Tacking Machine Operator Device Identifier Shelf Expiration Date Model / Serial / Lot Graft Patch Vasc Xenosure Biologic 0.8x08cm 0.8p8 Implanted:Qty: 1 on 12/16/2017 by Jaxon Saravia MD at [facility] Bone/Tis rocco/Biol ogic Left: Iliac/Fem orals LEMAITRE VASCULAR IN 06/06/2023 0.8P8 / / [id number] Graft Pericardium 8x0.8cm Vascu-Guard Implanted:Qty: 1 on 10/20/2011 at [facility] Right: Arm [employer] 01/16/2016 [id number] / / [id number] Femoral Popliteal Artery Implanted:Qty: 1 on 05/03/2012 by Jaxon Saravia MD at [facility] Right: Groin 12/07/2021 [id number] / [id number] / Description:CADAVER FEMORAL ARTERY RINSED IN A AND B SOLUTION: A SOLUTION LOT #[id number] EXPIRATION DATE 01/09/2014 B SOLUTION LOT #[id number] EXPIRATION DATE 11/15/2013 Graft Propaten Taper [id number] Implanted:Qty: 1 on 08/09/2012 by Jaxon Saravia MD at [facility] Right: Leg 10/24/2015 [id number] / / [id number] Graft Propaten Taper [id number] Implanted:Qty: 1 on 06/20/2013 by Jaxon Saravia MD at [facility] Left: Groin [employer] 02/07/2017 [id number] / / [id number] Graft Pericardium 8x0.8cm Vascu-Guard Implanted:Qty: 1 on 05/08/2014 by Jaxon Saravia MD at [facility] Left: Leg [employer] 11/26/2018 [id number] / PN# [id number] / [id number] Procol Vascular Bioprosthesis Implanted:Qty: 1 on 07/02/2015 by Jaxon Saravia MD at [facility] Left: Groin 12/16/2018 [id number] -[id number] / [id number] / Procol Vascular Bioprosthesis Implanted:Qty: 1 on 08/13/2015 by Jaxon Saravia MD at [facility] Left: Groin 12/16/2018 [id number] -[id number] / [id number] -15 / Graft Vasc Bioprosthesis Procol [id number] Implanted:Qty: 1 on 03/05/2016 by Jaxon Saravia MD at [facility] Left: Leg LEMAITRE VASCULAR IN 02/03/2019 [id number] -[id number] / [id number] / Procedures Procedure [...] CDT LIPID PROFILE STAT 12/07/2017 12:34 PM MARINE STEAM FITTER 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 Normal heart size and pulmonary vascularity. No pleural fluid or pneumothorax. Narrative 07/12/2024 3:18 AM CDT EXAM: XR CHEST 2 VIEWS LOCATION: [facility] DATE: 07/12/2024 INDICATION: ams COMPARISON: 03/11/2024. 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 NECK CTA: 1. 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 NECK CTA: 1. Normal configuration of [...] 1:49 am on 07/12/2024. 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 NECK CTA: 1. 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 NECK CTA: 1. Normal configuration of [...] 1:49 am on 07/12/2024. 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 NECK CTA: 1. 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 NECK CTA: 1. Normal configuration of [...] Tube (07/12/2024 1:14 AM CDT) Hold Specimen JI 07/12/2024 2:31 AM CDT [facility] Blood BLOOD SPECIMEN / Unknown Venipuncture / Unknown 07/12/2024 1:14 AM CDT 07/12/2024 1:23 AM CDT Avery Fernando MD LAB - BLOOD ORDERABL ES [facility] Acute Care Lab [address] [facility] Lab (1st floor, no room number) [place] [address] * (ABNORMAL) CBC with [...] LAB - BLOOD ORDERABL ES [facility] LAB[facility]ATORY [facility] Acute Care Lab [address] Lab (1st floor, no room number) [place] [address], [facility] * Adult Type and Screen (07/12/2024 1:14 AM CDT) Only the most recent of2 resultswithin the time period is included. ABO/RH(D) O POS 07/12/2024 1:01 AM CDT RH BLOOD BANK Antibody Screen Negative Negative 07/12/2024 1:01 AM CDT RH BLOOD BANK SPECIMEN EXPIRATION DATE [id number] 07/12/2024 1:01 AM CDT RH BLOOD BANK Blood BLOOD SPECIMEN / Unknown Venipuncture / Unknown 07/12/2024 1:14 AM CDT 07/12/2024 1:23 AM CDT Avery Fernando MD LAB - BLOOD BANK SHANNON T ORDER BLOOD BANK [address] [place] [address] * (ABNORMAL) INR (07/12/2024 1:14 AM CDT) Only the most recent of11 resultswithin the time period is included. INR 4.68(H) 0.85 - 1.15 07/12/2024 1:49 AM CDT [facility] Blood BLOOD SPECIMEN / Unknown Venipuncture / Unknown 07/12/2024 1:14 AM CDT 07/12/2024 1:23 AM CDT Avery Fernando MD LAB - BLOOD ORDERABL ES LABORATORY [facility] Acute Care Lab [address] [facility] Lab (1st floor, no room number) [place] [address] * Lactic acid whole blood (07/12/2024 1:14 AM CDT) Only the most recent of2 resultswithin the time period is included. Lactic Acid 0.8 0.7 - 2.0 mmol/L 07/12/2024 1:27 AM CDT [facility] Blood BLOOD SPECIMEN / Unknown Venipuncture / Unknown 07/12/2024 1:14 AM CDT 07/12/2024 1:23 AM CDT Avery Fernando MD LAB - BLOOD ORDERABL ES [facility] Lab [address] [employer] [address] Lab (1st floor, no room number) [place] [address] * Hepatic function panel [...] Fernando MD LAB - BLOOD ORDERABL ES [facility] Acute Care Lab [address] [facility] Lab (1st floor, no room number) [place] [address] * Blood Culture Peripheral Blood (07/12/2024 1:14 AM CDT) Only the most recent of2 resultswithin the time period is included. Culture No Growth 07/17/2024 4:46 AM CDT [facility] Blood BLOOD SPECIMEN / Unknown Venipuncture / Unknown 07/12/2024 1:14 AM CDT 07/12/2024 1:23 AM CDT Avery Fernando MD LAB - MICRO GENERAL ORDERABLES [facility] Inf. Diseases Diag. Lab [address] [facility], [address] [place] [address], [facility] * (ABNORMAL) Basic metabolic panel (07/12/2024 1:14 AM CDT) Only the most recent of5 resultswithin the time period is included. Sodium 133(L) 135 - 145 mmol/L 07/12/2024 1:43 AM CDT [facility] Potassium 3.5 3.4 - 5.3 mmol/L 07/12/2024 1:43 AM CDT [facility] Chloride 93(L) 98 - 107 mmol/L 07/12/2024 1:43 AM CDT [facility] Carbon Dioxide (CO2) [...] - 99 mg/dL 07/12/2024 1:43 AM CDT [facility] Blood BLOOD SPECIMEN / Unknown Venipuncture / Unknown 07/12/2024 1:14 AM CDT 07/12/2024 1:23 AM CDT Avery Fernando MD LAB - BLOOD ORDERABL ES Performing Organization Address City/[facility]/ZIP Co de Phone Number [facility] Lab [address] Lab (1st floor, no room number) [place] [address] * (ABNORMAL) Glucose by meter (07/12/2024 1:13 AM CDT) Only the most recent of41 resultswithin the time period is included. GLUCOSE BY METER POCT 133(H) 70 - 99 mg/dL 07/12/2024 1:20 AM CDT LABORATORY POC Blood, venous BLOOD SPECIMEN / Unknown 07/12/2024 1:13 AM CDT 07/12/2024 1:20 AM CDT Avery Fernando MD LAB - BEAKER POCT Performing Organization Address [facility]/ZIP Co de Phone Number LABORATORY [facility] [address] Lab (1st floor, no room number) [place] [address], [facility] * EKG 12-lead, tracing only (07/12/2024 12:24 AM CDT) Only the most recent of2 resultswithin the time period is included. Systolic Blood Pressure mmHg RADIOLOGY RESULTS Diastolic Blood Pressure mmHg RADIOLOGY RESULTS Ventricular Rate 65 BPM RAD IOLOGY RESULTS Atrial Rate 65 BPM RADIOLOG Y RESULTS HI Interval 234 ms RADIOLOG Y RESULTS QRS Duration 112 ms RADIOLO GY RESULTS QT 430 ms RADIOLOGY RESULTS QTc 447 ms RADIOLOGY RESULTS P [place] 53 degrees RADIOLOGY RESULTS R AXIS 10 degrees RADIOLOGY RESULTS T [place] 51 degrees RADIOLOGY RESULTS Interpretation ECG Sinus rhythm with 1st degree A-V block Otherwise normal ECG When compared with ECG of 23-May-2024 17:08, Criteria for Septal infarct are no longer Present Unconfirmed report - interpretation of this ECG is computer generated - see medical record for final interpretation Confirmed by - EMERGENCY ROOM, PHYSICIAN ([id number]), offline editor YISSEL VELASQUEZ ([id number]) on 07/12/2024 6:51:31 AM RADIOLOGY RESULTS 07/12/2024 [...] LAB - BLOOD ORDERABL ES [facility] LABORATORY [facility] Acute Care Lab [address] Lab (1st floor, no room number) [place] [address], [facility] * Extra Green Top Tube (LAB USE [...] City/[facility]/ZIP Co de Phone Number [facility] Lab [address] Lab (1st floor, no room number) [address] * Extra Purple Top EDTA (LAB USE ONLY) (05/28/2024 6:07 AM CDT) Only the most recent of2 resultswithin the time period is included. Hold Specimen [facility] 05/28/2024 7:32 AM CDT [facility] Blood STRUCTURE OF LEFT HAND / Unknown Venipuncture / Unknown 05/28/2024 6:07 AM CDT 05/28/2024 6:17 AM CDT Antonino Cheek MD LAB - BLOOD ORDERABL ES Performing Organization Address [facility] Co de Phone Number [facility] Lab [address] Lab (1st floor, no room number) [place] [phone] [place] [address] * (ABNORMAL) Hemoglobin (05/28/2024 6:07 AM CDT) Hemoglobin 7.7(L) 13.3 - 17.7 g/dL 05/28/2024 9:02 AM CDT [facility] Blood STRUCTURE OF LEFT HAND / Unknown Venipuncture / Unknown 05/28/2024 6:07 AM CDT 05/28/2024 6:17 AM CDT Dileep Anders MD LAB - BLOOD ORD ERABLES [facility] Acute Care Lab [address] Lab (1st floor, no room number) [place] [phone] [place] [address] * Vancomycin level (05/25/2024 2:04 PM CDT) Vancomycin 11.9 ug/mL 05/25/2024 3:28 PM CDT LABORATORY Comment: Traditional Dosing Therapeutic Range: Trough 10-15 ug/mL Peak 20-40 ug/mL Critical: Greater than 25.0 ug/mL Blood STRUCTURE OF RIGHT UPPER LIMB / Unknown Venipuncture / Unknown 05/25/2024 2:04 PM CDT 05/25/2024 2:07 PM CDT Antonino Cheek MD LAB - BLOOD ORDERABL ES Performing Organization Address [facility] Co de Phone Number [facility] Acute Care Lab [address] Lab (1st floor, no room number) [place] [phone] [place] [address] * Hepatitis B Surface Antibody (05/25/2024 9:25 [...] City/[facility]/ZIP Co de Phone Number [facility] [place] [facility] [address] [facility], [address] [phone] * Hepatitis B surface antigen (05/25/2024 9:25 AM CDT) [facility] Hepatitis B Surface Antigen Nonreactive Nonreactive 05/25/2024 2:23 PM CDT [facility] Blood BLOOD SPECIMEN / Unknown Venipuncture / Unknown 05/25/2024 9:25 AM CDT 05/25/2024 10:13 AM CDT Jose Enrique Naylor MD LAB - BLOOD ORDERABL ES [facility] LABORATORY [facility] [place] [facility] [address] [facility], [address] * (ABNORMAL) Comprehensive metabolic panel (05/24/2024 6:09 AM CDT) Only the most recent of2 resultswithin the time period is included. [facility] Sodium 131(L) 135 - 145 [...] MD LAB - BLOOD ORDERABL ES LABORATORY [facility] Acute Care Lab [address] [facility] Lab (1st floor, no room number) [place] [address] * (ABNORMAL) Tissue Aerobic Bacterial [...] Comment:Intrinsicall y Resistant Morganella morganii Ampicillin/ Sulbactam JOOJ >=32 ug/mL: Resistant Morganella morganii Piperacillin/Tazobactam JOJO [...] - MICRO GENERAL ORDERABLES [facility] Inf. Diseases Diag. Lab [address] [facility], [address] [place] [address] * (ABNORMAL) Gram Stain (05/23/2024 [...] - MICRO GENERAL ORDERABLES [facility] Inf. Diseases Diag. Lab [address] [facility], [address] * Anaerobic Bacterial Culture Routine (05/23/2024 6:42 PM CDT) Culture 4+ Mixed Aerobic and Anaerobic dev JOJO 05/25/2024 2:01 PM CDT [facility] Comment:No predominant organ ism Tissue SCROTAL STRUCTURE / Unknown Non-blood Collection / Unknown 05/23/2024 6:42 PM CDT 05/23/2024 6:46 PM CDT Lizandro Barron MD LAB - MICRO GENERAL ORDERABLES [facility] Inf. Diseases Diag. Lab [address] [facility], [address] * ANE AIRWAY ETT PERFORMABLE (05/23/2024 6:21 PM CDT) Narrative Donnell Ramos APRN FILM PROCESSOR - 05/23/2024 6:21 PM CDT Donnell Ramos APRN FILM PROCESSOR ? 05/23/2024 ??6:33 PM Airway ? Patient location during procedure: OR ? Procedure Start/Stop Times: 05/23/2024 6:21 PM Staff - ? FILM PROCESSOR: Yasemin Almaguer APRN FILM PROCESSOR ? Performed By: CRNAIndications and Patient Condition [...] Administered Medication Administration Time: 05/23/2024 6:21 PM oTm Castro MD [place] ANESTHESIA * CT Abdomen Pelvis w Contrast [...] 2:35 PM. MIKE SANTANA MD SYSTEM ID: ??[id number] Narrative 05/23/2024 2:[address] ABDOMEN [...] veins which are not included in the dbqfb-xt-xams. MUSCULOSKELETAL: Stable degenerative changes at L4-L5 with [...] veins which are not included in the olvon-de-unoe. 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 No destructive lesions in the bones. IMPRESSION: 1. 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 2. Other chronic findings as discussed above. Findings were discussed with Dr. Kenna Coe at 2:35 PM. MIKE SANTANA MD SYSTEM ID: [id number] Vi Coe DO IMG CT ORDERABLE S * (ABNORMAL) Renal panel (03/12/2024 6:06 AM CDT) [facility] Signature Sodium 123(L) 135 - 145 mmol/L 03/12/2024 [...] CDT Eileen Earl MD LAB - BLOOD [facility] Organization Address City/State/ZIP Co de Phone Number LABORATORY [facility] Acute Care Lab [address] [facility] Lab (1st floor, no room number) [place] [address] * COLONOSCOPY (03/08/2024 1:04 PM CDT) COLONOSCOPY [facility] Patient Name: Herminio Victor ? Procedure Date: 03/08/2024 1:04 PM ? Date of : 1965 ?Admit Type: Inpatient Age: 58 ? Gender: Male Attending : EILEEN EARL MD, ??Total Sedation Time: 20 [...] continuously. The ?Olympus Adult Colonoscope, Model # CF-GY935Q, ?Censitrac # [id number] was introduced through the ?anus and advanced [...] Note Initiated On: 03/08/2024 1:04 PM MRN: ?[id number] Procedure Date: ? 03/08/2024 1:04:50 PM Scope Withdrawal Time: 0 hours 11 minutes 55 seconds Total Procedure Duration: 0 hours 17 minutes 23 seconds Estimated Blood Loss: ? Scope In: 1:12:27 PM Scope Out: 1:29:50 PM RADIOLOGY RESULTS 03/08/2024 1:04 PM CDT Eileen Earl MD PROCEDURES Performing Organization Address [facility] Co de Phone Number RADIOLOGY RESULTS * (ABNORMAL) Occult blood stool (02/24/2024 11:31 AM CDT) Occult Blood Positive(A ) Negative JOJO 02/24/2024 11:40 AM CDT LABORATORY Stool RECTAL CONTENTS / Unknown Non-blood Collection / Unknown 02/24/2024 11:31 AM CDT 02/24/2024 11:38 AM CDT Jae Noel MD LAB - STOOLS ORDERAB LES Performing Organization Address [facility] Co de Phone Number RH LABORATORY [facility] Acute Care Lab [address] Lab (1st floor, no room number) [place] [address], [facility] * Hepatitis C (HIM External Result) (01/04/2022 12:00 PM CDT) Hep C HIM See Scanned Document EXTERNAL LAB Comment:Nonreactive 01/04/2022 12:0 0 PM CDT Narrative EXTERNAL LAB - 01/04/2022 12:00 PM CDT LAB RESULT [facility] [address] [place] [address] Provider Outside LAB - HIM EXTERNAL R ESULT Performing Organization Address [facility] Co de Phone Number EXTERNAL LAB External Lab * (ABNORMAL) Lipid panel (12/07/2017 12:34 PM MARINE STEAM FITTER) Cholesterol 115 <200 mg/dL 12/07/2017 1:27 PM MARINE STEAM FITTER [facility] Triglycerides 84 <150 mg/dL 12/07/2017 1:27 PM MARINE STEAM FITTER [facility] HDL Cholesterol 37(L) >39 mg/dL 8 1:27 PM MARINE STEAM FITTER [facility] LDL Cholesterol Calculated 61 <100 mg/dL 12/07/2017 1:27 PM MARINE STEAM FITTER [facility] Comment:Desirable: <100 mg/d l Non HDL Cholesterol 78 <130 mg/dL 12/07/2017 1:27 PM MARINE STEAM FITTER [facility] Blood specimen (specimen) 12/07/2017 12:34 PM MARINE STEAM FITTER 12/07/2017 12:58 PM MARINE STEAM FITTER Michele Fuentes MD LAB - BLOOD ORD ERABLES [facility] [address] [place] [address] [phone] from Last 3 Months or Most Recently Relevant to Health Maintenance Advance Directives For more information, please contact: [phone] * Full Code (Latest Code Status on [...] 12:25 PM 01/25/2019 11:45 AM Care Teams Manual Arts Teacher Relationship Specialty Start Date End Date Preet Huff PCP - General 06/24/11
--- OUTSIDE RECORDS SUMMARY | 2024-07-19 10:13 | XMS_ITS | Encounter Summary ---
Author Organization [place] Address [facility] 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) Emergency Dept [address] [place] [address] Referral ID Status Reason Start Date Expiration Date Visits Re quested Visits Authorized [id number] 1 1 Encounter Details Date Type Department Care Team (Late st Contact Info) Description 05/23/2024 6:02 PM CDT Anesthesia Event [facility] PeriOp Services [address] [place] [address] Tom Castro MD [facility] ANESTHESIA NETWORK [id number] [place] [address] Pan Michelle MD [facility] [address] [place], [place] [phone] Anesthesia Record Procedure Summary Procedure Name Responsible Anesthesiologist Anesthesia Start Time Anesthesia Stop Time Incision and drainage, debridement of scrotal skin and subcutaneous tissues for necrotizing soft tissue infection of the scrotum (Scrotum) Tom Castro MD 05/23/24 [id number]/241918 Events Date Time Event Comment 05/23/2024 1711 1718 COLLECTIONS OFFICER Ready for Procedure 180 AN REASSESS I attest that I have identified and re-evaluated the patient immediately before the induction of anesthesia and I am satisfied that the anesthetic plan is suitable for the patient's condition and procedure. The first vital signs recorded are pre- induction. Donnell Ramos APRN COLLECTIONS OFFICER 1801 An Start Anesthesia Star t is [...] Tube Size: 8 mm; VL Blade Size: Goode scope 3; Grade View: 1; Placement Person: COLLECTIONS OFFICER; Attempts: 1 05/23/24 182 by Donnell Ramos APRN COLLECTIONS OFFICER 05/23/24 191 by Donnell Ramos APRN CRNA [...] file Gender Identity Male 12/05/2017 10:39 AM NEON INSTALLER Sexual Orientation Not on file documented as [...] Start/Stop Times: 05/23/2024 6:21 PM Staff - COLLECTIONS OFFICER: Yasemin Almaguer APRN CRNA Performed By: CRNAIndications [...] ESRD (end stage renal disease) (H) dialysis T--[facility] History of staph septicemia 12/20/2015 Hyperkalemia Hyperlipemia [...] and realistic alternatives discussed. Questions answered and patient/customer contact representative(s) expressed understanding. - Discussed: - Discussed [...] Times: 05/23/2024 6:21 PM Staff - ? COLLECTIONS OFFICER: Yasemin Almaguer APRN CRNA ? Performed By: [...] Time: 05/23/2024 6:21 PM Tom Castro MD [place] ANESTHESIA documented in this encounter Visit Diagnoses [...] mg documented in this encounter Care Teams Hat Body Inspector Relationship Specialty Start Date End Date Preet Huff PCP - General 06/24/11 documented as of this encounter
--- OUTSIDE RECORDS SUMMARY | 2024-07-19 10:13 | XMS_ITS | Encounter Summary ---
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 MD SYSTEM ID: [id number] Independent Interpretation None ED Course Medications Administered [...] intermittent infusion (10mg Intravenous $New Bag 05/23/24 7161) prothrombin 4 factor complex concentrate (KCENTRA) infusion 4,156 Units (4,156 Units Intravenous $Given 05/23/24 4019) Procedures Procedures Discussion of Management Urology, Poppy Greenwood and Dr. Cruz Admitting hospitalist, Dr. Cheek ED Course ED Course as of 05/23/241926May 23, 2024 1330 I obtained the history and examined the patient as above. 1342 I spoke with Poppy Greenwood from Urology regarding the patient's presentation and plan of care. 1432 I spoke with Poppy Grenewood from Urology regarding the patient's presentation and plan of care. 1433 I spoke with Radiology regarding the patient's presentation and plan of care. 1433 I spoke with Pharmacy regarding the patient's presentation and plan of care. [address] Cruz from Urology regarding the patient's presentation and plan of care. [address] Cheek [facility] medicine who accepts [phone] Arianna Goodman (Mother) [phone] (Home Phone) Updated mom Additional Documentation None Medical Decision Making / Diagnosis [facility] Diagnoses: None MIPS None MDM [...] Expected time: Means of arrival: Ambulance Comments: [facility] 332 documented in this encounter Miscellaneous Notes * Plan of Care - Rand Ochoa OTR - 05/30/2024 5:21 PM CDT Occupational Therapy Discharge Summary Reason for therapy discharge: Discharged to home with home therapy. Progress towards therapy goal(s). See goals on Care Plan in [facility] electronic health record for goal details. Goals partially met. Barriers to achieving goals: discharge from facility. Therapy recommendation(s): Continued therapy is recommended. Rationale/Recommendations: Patient appears safe and able todischarge home with intermittent assist from family with higher level IADLS (just like baseline). Pt wouldbeenfit from HHOT to progress ADL tolerance. Pt not seen by technical publications writer on this date, note written based on previous treating OT's note and recommendations. * Plan of Care - Joann Marinelli PT - 05/30/2024 5:21 PM CDT Physical Therapy Discharge Summary Reason for therapy discharge: Discharged to home with home therapy. Progress towards therapy goal(s). See goals on Care Plan in [facility] electronic health record for goal details. Goals not met. Barriers to achieving goals: discharge from facility. Therapy recommendation(s): Continued therapy is recommended. Rationale/Recommendations: Rec home with assist for safe mobilityand HHPT to progress strength and IND mobility. * Pharmacy-Anticoagulation Service - Joni Steel [facility] - 05/30/2024 3:00 PM CDT Images from the original note were not included. 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 INR Goal= 2-3 Warfarin HOSPICE ENTRANCE ATTENDANT Regimen: 5 mg M-F and No dose [...] Agree with discharging the patient on their bar captain warfarin regimen of 5 mg M-F [...] Flowsheet Documentation Taken 05/28/2024809 by Edie Pack RNcriminal investigative agent Interventions: declines Goal: Readiness for Transition of [...] documentation flowsheets. Pertinent assessments: Assumed cares @ [phone].Disoriented to situation and time. VSS on RA. [...] Flowsheet Documentation Taken 05/27/2024919 by Edie Pack RNcriminal investigative agent Interventions: declines Goal: Readiness for Transition of [...] documentation flowsheets. Pertinent assessments: Assumed cares @ [phone].Disoriented to time and situation. VSS on RA. [...] bedrest * Pharmacy-Anticoagulation Service - Tobias Luis [facility] - 05/26/2024 4:50 PM CDT Clinical Pharmacy - Warfarin Dosing Consult Pharmacy has been consulted to manage this patient???s warfarin therapy. Indication: DVT/PE Prophylaxis Therapy Goal: INR 2-3 Warfarin Prior to Admission: Yes Warfarin HOSPICE ENTRANCE ATTENDANT Regimen: 5 mg M-F and No dose [...] * Pharmacy-Vancomycin Dosing Service - Chucho Zuluaga [facility] - 05/25/2024 3:31 PM CDT Pharmacy [...] shift note. Outcome: Progressing Flowsheets (Taken 05/24/2024 8111) Outcome Evaluation: Scrotal dressing changed twice. Did [...] Fall Risk Recent Flowsheet Documentation Taken 05/24/2024 0957 by Jessica Paz RN Safety Promotion/Fall Prevention: [...] changed * Plan of Care - Jazmín Alacntar RN - 05/24/2024 6:40 AM CDT End [...] member and Thelma (aunt) via phone and [phone] Pertinent Information: outside meds--none added Changes made to HOSPICE ENTRANCE ATTENDANT medication list: Added: none Deleted: norvasc, lipitor, Changed: protonix Allergies reviewed with patient and updates made in EHR: yes Medication History Completed By: Graham Joseph RPH 05/23/2024 9:51 PM HOSPICE ENTRANCE ATTENDANT Med List Medication Sig Last Dose B Veygmco-J-Ukihl Acid (WESCAPS PO) Take 1 capsule by [...] * Pharmacy-Vancomycin Dosing Service - John Rosado [facility] - 05/23/2024 9:03 PM CDT Pharmacy [...] and procedure to be performed. A 16 Mohawk coud?? catheter was placed through the urethra, [...] stable condition. Lizandro Barron MD Urology [facility] documented in this encounter Plan [...] CDT Antonino DEAN - DAVID POCT LABORATORY [facility] [address] Lab (1st floor, no room number) [place] [id number] [place] [address] * Glucose by meter (05/30/2024 7:13 AM CDT) GLUCOSE BY METER POCT 82 70 - 99 mg/dL 05/30/2024 7:19 AM CDT LABORATORY POC Blood, Capillary BLOOD SPECIMEN / Unknown 05/30/2024 7:13 AM CDT 05/30/2024 7:19 AM CDT Antonino DEAN - BEXIANG POCT LABORATORY [facility] Lab [address] Lab (1st floor, no room number) [place] [id number] [place] [address] * (ABNORMAL) INR (05/30/2024 6:54 AM CDT) INR 2.26(H) 0.85 - 1.15 05/30/2024 7:20 AM CDT LABORATORY Blood STRUCTURE OF RIGHT HAND / Unknown Venipuncture / Unknown 05/30/2024 6:54 AM CDT 05/30/2024 7:06 AM CDT Antonino Cheek MD LAB - BLOOD ORDERABL ES LABORATORY [facility] Care Lab [address] Lab (1st floor, no room number) [place] [address] * (ABNORMAL) Basic metabolic panel (05/30/2024 6:54 AM CDT) Pathologist [facility] Sodium 133(L) 135 - 145 mmol/L 05/30/2024 [...] LAB - BLOOD ORDERABL ES RH LABORATORY [facility] Care Lab [address] Lab (1st floor, no room number) [place] [address] * (ABNORMAL) CBC with platelets (05/30/2024 6:54 [...] - BLOOD ORDERABL ES Performing Organization Address [facility]/ZIP Co de Phone Number [facility] Acute Care Lab [address] Lab (1st floor, no room number) [address] [place] [address] * (ABNORMAL) Glucose by meter (05/30/2024 2:18 AM CDT) GLUCOSE BY METER POCT 138(H) 70 - 99 mg/dL 05/30/2024 2:24 AM CDT RH LABORATORY POC Blood, Capillary BLOOD SPECIMEN / Unknown 05/30/2024 2:18 AM CDT 05/30/2024 2:24 AM CDT Antonino DEAN - BEAKER POCT Performing Organization Address [facility]/ZIP Co de Phone Number LABORATORY [facility] Care Lab [address] Lab (1st floor, no room number) [address] [place] [address] * (ABNORMAL) Glucose by meter (05/29/2024 9:28 PM CDT) GLUCOSE BY METER POCT 160(H) 70 - 99 mg/dL 05/29/2024 9:35 PM CDT LABORATORY POC Blood, Capillary BLOOD SPECIMEN / Unknown 05/29/2024 9:28 PM CDT 05/29/2024 9:35 PM CDT Antonino DEAN - BEAKER POCT Performing Organization Address [facility]/ZIP Co de Phone Number LABORATORY [facility] Care Lab [address] Lab (1st floor, no room number) [address] [place] [address] * (ABNORMAL) Glucose by meter (05/29/2024 5:54 PM CDT) GLUCOSE BY METER POCT 159(H) 70 - 99 mg/dL 05/29/2024 6:01 PM CDT RH LABORATORY POC Blood, Capillary BLOOD SPECIMEN / Unknown 05/29/2024 5:54 PM CDT 05/29/2024 6:01 PM CDT Antonino Cheek MD LAB - BEAKER POCT LABORATORY [facility] Care Lab [address] Lab (1st floor, no room number) [place] [id number] [place] [address] * (ABNORMAL) Glucose by meter (05/29/2024 1:41 PM CDT) GLUCOSE BY METER POCT 158(H) 70 - 99 mg/dL 05/29/2024 1:48 PM CDT RH LABORATORY POC Blood, Capillary BLOOD SPECIMEN / Unknown 05/29/2024 1:41 PM CDT 05/29/2024 1:48 PM CDT Antonino Cheek MD LAB - BEAKER POCT Performing Organization Address City/[facility]/ZIP Co de Phone Number LABORATORY [facility] [address] Lab (1st floor, no room number) [place] [address] * Glucose by meter (05/29/2024 7:54 AM CDT) GLUCOSE BY METER POCT 90 70 - 99 mg/dL 05/29/2024 8:01 AM CDT RH LABORATORY POC Blood, Capillary BLOOD SPECIMEN / Unknown 05/29/2024 7:54 AM CDT 05/29/2024 8:01 AM CDT Antonino Cheek MD LAB - BEAKER POCT LABORATORY [facility] [address] Lab (1st floor, no room number) [place] [id number] [place] [address] * (ABNORMAL) INR (05/29/2024 6:22 AM CDT) INR 1.92(H) 0.85 - 1.15 05/29/2024 6:52 AM CDT RH LABORATORY Blood STRUCTURE OF RIGHT HAND / Unknown Venipuncture / Unknown 05/29/2024 6:22 AM CDT 05/29/2024 6:40 AM CDT Antonino Cheek MD LAB - BLOOD ORDERABL ES RH LABORATORY [facility] Acute Care Lab [address] Lab (1st floor, no room number) [place] [address] * (ABNORMAL) Basic metabolic panel (05/29/2024 6:22 [...] LAB - BLOOD ORDERABL ES RH LABORATORY [facility] Acute Care Lab [address] Lab (1st floor, no room number) [place] [address] * (ABNORMAL) CBC with platelets (05/29/2024 6:22 [...] LAB - BLOOD ORDERABL ES RH LABORATORY [facility] Care Lab [address] Lab (1st floor, no room number) [address] [place] [address] * (ABNORMAL) Glucose by meter (05/29/2024 2:26 AM CDT) GLUCOSE BY METER POCT 103(H) 70 - 99 mg/dL 05/29/2024 2:33 AM CDT RH LABORATORY POC Blood, Capillary BLOOD SPECIMEN / Unknown 05/29/2024 2:26 AM CDT 05/29/2024 2:33 AM CDT Antonino Cheek MD LAB - BEAKER POCT LABORATORY [facility] [address] Lab (1st floor, no room number) [address] * (ABNORMAL) Glucose by meter (05/28/2024 9:50 PM CDT) GLUCOSE BY METER POCT 102(H) 70 - 99 mg/dL 05/28/2024 9:56 PM CDT LABORATORY POC Blood, Capillary BLOOD SPECIMEN / Unknown 05/28/2024 9:50 PM CDT 05/28/2024 9:56 PM CDT Antonino Cheek MD LAB - BEAKER POCT LABORATORY [facility] [address] Lab (1st floor, no room number) [address] * (ABNORMAL) Glucose by meter (05/28/2024 5:08 PM CDT) GLUCOSE BY METER POCT 254(H) 70 - 99 mg/dL 05/28/2024 5:16 PM CDT LABORATORY POC Blood, Capillary BLOOD SPECIMEN / Unknown 05/28/2024 5:08 PM CDT 05/28/2024 5:16 PM CDT Antonino DEAN - BEAKER POCT LABORATORY [facility] Care Lab [address] Lab (1st floor, no room number) [place] [id number] [place] [address] * Glucose by meter (05/28/2024 1:58 PM CDT) GLUCOSE BY METER POCT 91 70 - 99 mg/dL 05/28/2024 2:05 PM CDT RH LABORATORY POC Blood, Capillary BLOOD SPECIMEN / Unknown 05/28/2024 1:58 PM CDT 05/28/2024 2:05 PM CDT Antonino Cheek MD LAB - BEXIANG POCT Performing Organization Address [facility]/ZIP Co de Phone Number LABORATORY [facility] Care Lab [address] Lab (1st floor, no room number) [place] [id number] [place] [address] * (ABNORMAL) Glucose by meter (05/28/2024 7:48 AM CDT) GLUCOSE BY METER POCT 128(H) 70 - 99 mg/dL 05/28/2024 7:54 AM CDT LABORATORY POC Blood, Capillary BLOOD SPECIMEN / Unknown 05/28/2024 7:48 AM CDT 05/28/2024 7:54 AM CDT Antonino DEAN - DAVID POCT LABORATORY [facility] Acute Care Lab [address] Lab (1st floor, no room number) [place] [id number], [facility] * Extra Purple Top EDTA (LAB USE ONLY) (05/28/2024 6:07 AM CDT) Hold Specimen JIC 05/28/2024 7:32 AM CDT RH LABORATORY Blood STRUCTURE OF LEFT HAND / Unknown Venipuncture / Unknown 05/28/2024 6:07 AM CDT 05/28/2024 6:17 AM CDT Antonino Cheek MD LAB - BLOOD ORDERABL ES Performing Organization Address City/[facility]/ZIP Co de Phone Number [facility] Care Lab [address] Lab (1st floor, no room number) [place] [id number] [place] [address] * Extra Green Top Tube (LAB USE ONLY) (05/28/2024 6:07 AM CDT) Hold Specimen JIC 05/28/2024 7:32 AM CDT RH LABORATORY Blood STRUCTURE OF LEFT HAND / Unknown Venipuncture / Unknown 05/28/2024 6:07 AM CDT 05/28/2024 6:17 AM CDT Antonino Cheek MD LAB - BLOOD ORDERABL ES Performing Organization Address [facility]/ZIP Co de Phone Number [facility] Care Lab [address] Lab (1st floor, no room number) [place] [id number] [place] [address] * (ABNORMAL) INR (05/28/2024 6:07 AM CDT) INR 1.87(H) 0.85 - 1.15 05/28/2024 6:27 AM CDT RH LABORATORY Blood STRUCTURE OF LEFT HAND / Unknown Venipuncture / Unknown 05/28/2024 6:07 AM CDT 05/28/2024 6:17 AM CDT Antonino Cheek MD LAB - BLOOD ORDERABL ES [facility] Care Lab [address] Lab (1st floor, no room number) [place] [id number] [place] [address] * (ABNORMAL) Hemoglobin (05/28/2024 6:07 AM CDT) Hemoglobin 7.7(L) 13.3 - 17.7 g/dL 05/28/2024 9:02 AM CDT RH LABORATORY Blood STRUCTURE OF LEFT HAND / Unknown Venipuncture / Unknown 05/28/2024 6:07 AM CDT 05/28/2024 6:17 AM CDT Dileep Anders MD LAB - BLOOD ORD ERABLES LABORATORY [facility] Acute Care Lab [address] [facility] Lab (1st floor, no room number) [place] [address] * (ABNORMAL) Basic metabolic panel (05/28/2024 6:07 [...] MD LAB - BLOOD ORD ERABLES LABORATORY [facility] Care Lab [address] Lab (1st floor, no room number) [place] [address] * (ABNORMAL) Glucose by meter (05/28/2024 2:19 AM CDT) GLUCOSE BY METER POCT 102(H) 70 - 99 mg/dL 05/28/2024 2:26 AM CDT LABORATORY POC Blood, Capillary BLOOD SPECIMEN / Unknown 05/28/2024 2:19 AM CDT 05/28/2024 2:26 AM CDT Antonino DEAN - BEAKER POCT LABORATORY [facility] [address] Lab (1st floor, no room number) [place] [address], [facility] * (ABNORMAL) Glucose by meter (05/27/2024 9:05 PM CDT) GLUCOSE BY METER POCT 148(H) 70 - 99 mg/dL 05/27/2024 9:13 PM CDT LABORATORY POC Blood, Capillary BLOOD SPECIMEN / Unknown 05/27/2024 9:05 PM CDT 05/27/2024 9:13 PM CDT Antonino DEAN - BEXIANG POCT LABORATORY [facility] [address] Lab (1st floor, no room number) [place] [id number], [facility] * (ABNORMAL) Glucose by meter (05/27/2024 5:11 PM CDT) GLUCOSE BY METER POCT 148(H) 70 - 99 mg/dL 05/27/2024 5:20 PM CDT RH LABORATORY POC Blood, Capillary BLOOD SPECIMEN / Unknown 05/27/2024 5:11 PM CDT 05/27/2024 5:20 PM CDT Antonino Cheek MD LAB - BEAKER POCT LABORATORY [facility] [address] Lab (1st floor, no room number) [place] [address] * (ABNORMAL) Glucose by meter (05/27/2024 11:42 AM CDT) GLUCOSE BY METER POCT 149(H) 70 - 99 mg/dL 05/27/2024 11:49 AM CDT RH LABORATORY POC Blood, Capillary BLOOD SPECIMEN / Unknown 05/27/2024 11:42 AM CDT 05/27/2024 11:49 AM CDT Antonino Cheek MD LAB - BEAKER POCT Performing Organization Address City/[facility]/ZIP Co de Phone Number LABORATORY [facility] [address] Lab (1st floor, no room number) [place] [address] * (ABNORMAL) Glucose by meter (05/27/2024 7:44 AM CDT) GLUCOSE BY METER POCT 108(H) 70 - 99 mg/dL 05/27/2024 7:51 AM CDT RH LABORATORY POC Blood, Capillary BLOOD SPECIMEN / Unknown 05/27/2024 7:44 AM CDT 05/27/2024 7:51 AM CDT Antonino Cheek MD LAB - BEAKER POCT LABORATORY [facility] [address] Lab (1st floor, no room number) [address] * (ABNORMAL) INR (05/27/2024 7:03 AM CDT) INR 1.81(H) 0.85 - 1.15 05/27/2024 7:17 AM CDT LABORATORY Blood STRUCTURE OF RIGHT HAND / Unknown Venipuncture / Unknown 05/27/2024 7:03 AM CDT 05/27/2024 7:07 AM CDT Antonino Cheek MD LAB - BLOOD ORDERABL ES LABORATORY [facility] Care Lab [address] [employer] Lab (1st floor, no room number) [address] * (ABNORMAL) Glucose by meter (05/27/2024 2:03 AM CDT) GLUCOSE BY METER POCT 157(H) 70 - 99 mg/dL 05/27/2024 2:10 AM CDT LABORATORY POC Blood, Capillary BLOOD SPECIMEN / Unknown 05/27/2024 2:03 AM CDT 05/27/2024 2:10 AM CDT Antonino Cheek MD LAB - BEAKER POCT Performing Organization Address City/[facility]/ZIP Co de Phone Number LABORATORY POC [facility] Lab [address] Lab (1st floor, no room number) [address] * (ABNORMAL) Glucose by meter (05/26/2024 9:29 PM CDT) GLUCOSE BY METER POCT 155(H) 70 - 99 mg/dL 05/26/2024 9:37 PM CDT LABORATORY POC Blood, Capillary BLOOD SPECIMEN / Unknown 05/26/2024 9:29 PM CDT 05/26/2024 9:37 PM CDT Antonino Cheek MD LAB - BEAKER POCT LABORATORY [facility] Care Lab [address] Lab (1st floor, no room number) [place] [id number] [place] [address] * (ABNORMAL) Glucose by meter (05/26/2024 4:10 PM CDT) GLUCOSE BY METER POCT 174(H) 70 - 99 mg/dL 05/26/2024 4:19 PM CDT RH LABORATORY POC Blood, Capillary BLOOD SPECIMEN / Unknown 05/26/2024 4:10 PM CDT 05/26/2024 4:19 PM CDT Antonino Cheek MD LAB - BEAKER POCT Performing Organization Address [facility]/ZIP Co de Phone Number LABORATORY [facility] Care Lab [address] Lab (1st floor, no room number) [place] [id number] [place] [address] * (ABNORMAL) INR (05/26/2024 4:09 PM CDT) INR 1.67(H) 0.85 - 1.15 05/26/2024 4:28 PM CDT LABORATORY Blood STRUCTURE OF LEFT UPPER LIMB / Unknown Venipuncture / Unknown 05/26/2024 4:09 PM CDT 05/26/2024 4:15 PM CDT Antonino Cheek MD LAB - BLOOD ORDERABL ES Performing Organization Address [facility]/ZIP Co de Phone Number [facility] Acute Care Lab [address] Lab (1st floor, no room number) [place] [id number] * (ABNORMAL) Glucose by meter (05/26/2024 11:37 AM CDT) GLUCOSE BY METER POCT 197(H) 70 - 99 mg/dL 05/26/2024 11:44 AM CDT RH LABORATORY POC Blood, Capillary BLOOD SPECIMEN / Unknown 05/26/2024 11:37 AM CDT 05/26/2024 11:44 AM CDT Antonino Cheek MD LAB - BEAKER POCT LABORATORY [facility] Care Lab [address] Lab (1st floor, no room number) [place] [address] * Glucose by meter (05/26/2024 8:22 AM CDT) GLUCOSE BY METER POCT 85 70 - 99 mg/dL 05/26/2024 8:29 AM CDT RH LABORATORY POC Blood, Capillary BLOOD SPECIMEN / Unknown 05/26/2024 8:22 AM CDT 05/26/2024 8:29 AM CDT Antonino Cheek MD LAB - BEAKER POCT Performing Organization Address City/[facility]/ZIP Co de Phone Number LABORATORY [facility] Care Lab [address] Lab (1st floor, no room number) [place] [id number] * (ABNORMAL) [...] LAB - BLOOD ORDERABL ES RH LABORATORY [facility] Acute Care Lab [address] Lab (1st floor, no room number) [place] [address], [facility] * (ABNORMAL) Basic [...] MD LAB - BLOOD ORDERABL ES LABORATORY [facility] Acute Care Lab [address] Lab (1st floor, no room number) [place] [id number] * (ABNORMAL) Glucose by meter (05/26/2024 1:57 AM CDT) GLUCOSE BY METER POCT 123(H) 70 - 99 mg/dL 05/26/2024 2:04 AM CDT RH LABORATORY POC Blood, Capillary BLOOD SPECIMEN / Unknown 05/26/2024 1:57 AM CDT 05/26/2024 2:04 AM CDT Antonino Cheek MD LAB - BEAKER POCT Performing Organization Address City/[facility]/ZIP Co de Phone Number LABORATORY [facility] [address] [employer] Lab (1st floor, no room number) [address] * (ABNORMAL) Glucose by meter (05/25/2024 9:32 PM CDT) GLUCOSE BY METER POCT 155(H) 70 - 99 mg/dL 05/25/2024 9:39 PM CDT LABORATORY POC Blood, Capillary BLOOD SPECIMEN / Unknown 05/25/2024 9:32 PM CDT 05/25/2024 9:39 PM CDT Antonino Cheek MD LAB - BEAKER POCT Performing Organization Address [facility] Co de Phone Number LABORATORY [facility] [address] Lab (1st floor, no room number) [address] * (ABNORMAL) Glucose by meter (05/25/2024 7:06 PM CDT) GLUCOSE BY METER POCT 183(H) 70 - 99 mg/dL 05/25/2024 7:14 PM CDT LABORATORY POC Blood, Capillary BLOOD SPECIMEN / Unknown 05/25/2024 7:06 PM CDT 05/25/2024 7:14 PM CDT Antonino Cheek MD LAB - BEAKER POCT LABORATORY POC [facility] Acute Care Lab [address] Lab (1st floor, no room number) [place] [id number] * (ABNORMAL) Glucose by meter (05/25/2024 5:29 PM CDT) GLUCOSE BY METER POCT 142(H) 70 - 99 mg/dL 05/25/2024 5:36 PM CDT LABORATORY POC Blood, Capillary BLOOD SPECIMEN / Unknown 05/25/2024 5:29 PM CDT 05/25/2024 5:36 PM CDT Antonino Cheek MD LAB - BEAKER POCT Performing Organization Address [facility]/ZIP Co de Phone Number LABORATORY [facility] Care Lab [address] [address] Lab (1st floor, no room number) [place] [id number] * Vancomycin [...] - BLOOD ORDERABL ES Performing Organization Address [facility]/ZIP Co de Phone Number LABORATORY [facility] [address] Lab (1st floor, no room number) [place] [id number] * Extra Purple Top EDTA (LAB USE ONLY) (05/25/2024 2:04 PM CDT) Hold Specimen JIC 05/25/2024 3:17 PM CDT LABORATORY Blood STRUCTURE OF RIGHT UPPER LIMB / Unknown Venipuncture / Unknown 05/25/2024 2:04 PM CDT 05/25/2024 2:07 PM CDT Antonino Cheek MD LAB - BLOOD ORDERABL ES [facility] Care Lab [address] Lab (1st floor, no room number) [place] [address], [facility] * Extra Green Top Tube (LAB USE ONLY) (05/25/2024 2:04 PM CDT) Hold Specimen JIC 05/25/2024 3:17 PM CDT LABORATORY Blood STRUCTURE OF RIGHT UPPER LIMB / Unknown Venipuncture / Unknown 05/25/2024 2:04 PM CDT 05/25/2024 2:07 PM CDT Antonino Cheek MD LAB - BLOOD ORDERABL ES Performing Organization Address [facility]/ZIP Co de Phone Number [facility] Care Lab [address] Lab (1st floor, no room number) [place] [address], [facility] * Glucose by meter (05/25/2024 2:01 PM CDT) GLUCOSE BY METER POCT 70 70 - 99 mg/dL 05/25/2024 2:08 PM CDT LABORATORY POC Blood, Capillary BLOOD SPECIMEN / Unknown 05/25/2024 2:01 PM CDT 05/25/2024 2:08 PM CDT Antonino Cheek MD LAB - BEAKER POCT LABORATORY POC [facility] Lab [address] Lab (1st floor, no room number) [place] [address], [facility] * Hepatitis B surface antigen (05/25/2024 9:25 AM CDT) Hepatitis B Surface Antigen Nonreactive Nonreactive 05/25/2024 2:23 PM CDT UU LABORATORY Blood BLOOD SPECIMEN / Unknown Venipuncture / Unknown 05/25/2024 9:25 AM CDT 05/25/2024 10:13 AM CDT Jose Enrique Naylor MD LAB - BLOOD ORDERABL ES Performing Organization Address [facility] de Phone Number U LABORATORY [facility] Core Lab [address] [facility], Room [address] [address] [place] [address] * Hepatitis B Surface Antibody (05/25/2024 9:25 [...] BLOOD ORDERABL ES Performing Organization Address City/[facility] Co de Phone Number LABORATORY [facility] Core Lab [address], Room [address] [phone] * Glucose by meter (05/25/2024 5:35 AM CDT) GLUCOSE BY METER POCT 86 70 - 99 mg/dL 05/25/2024 5:42 AM CDT LABORATORY POC Blood, Capillary BLOOD SPECIMEN / Unknown 05/25/2024 5:35 AM CDT 05/25/2024 5:42 AM CDT Antonino Cheek MD LAB - BEAKER POCT LABORATORY [facility] Lab [address] Lab (1st floor, no room number) [place] [phone] [place] [address] * Glucose by meter (05/25/2024 2:01 AM CDT) GLUCOSE BY METER POCT 86 70 - 99 mg/dL 05/25/2024 2:08 AM CDT RH LABORATORY POC Blood, Capillary BLOOD SPECIMEN / Unknown 05/25/2024 2:01 AM CDT 05/25/2024 2:08 AM CDT Antonino Cheek MD LAB - BEXIANG POCT Performing Organization Address City/[facility]/ZIP Co de Phone Number LABORATORY [facility] Lab [address] Lab (1st floor, no room number) [place] [phone] [place] [address] * Glucose by meter (05/24/2024 8:52 PM CDT) GLUCOSE BY METER POCT 96 70 - 99 mg/dL 05/24/2024 8:59 PM CDT LABORATORY POC Blood, Capillary BLOOD SPECIMEN / Unknown 05/24/2024 8:52 PM CDT 05/24/2024 8:59 PM CDT Antonino HERNANDEZ POCT LABORATORY [facility] Lab [address] Lab (1st floor, no room number) [place] [id number], [facility] * Glucose by meter (05/24/2024 5:05 PM CDT) GLUCOSE BY METER POCT 84 70 - 99 mg/dL 05/24/2024 5:32 PM CDT RH LABORATORY POC Blood, Capillary BLOOD SPECIMEN / Unknown 05/24/2024 5:05 PM CDT 05/24/2024 5:32 PM CDT Antonino Cheek MD LAB - BEAKER POCT LABORATORY [facility] Lab [address] Lab (1st floor, no room number) [place] [phone] [place] [address] * (ABNORMAL) INR (05/24/2024 2:16 PM CDT) INR 1.16(H) 0.85 - 1.15 05/24/2024 2:34 PM CDT RH LABORATORY Blood BLOOD SPECIMEN / Unknown Venipuncture / Unknown 05/24/2024 2:16 PM CDT 05/24/2024 2:21 PM CDT Lizandro Barron MD LAB - BLOOD ORDERABL ES Performing Organization Address [facility]/ZIP Co de Phone Number [facility] Lab [address] Lab (1st floor, no room number) [place] [phone] [place] [address] * Glucose by meter (05/24/2024 12:20 PM CDT) GLUCOSE BY METER POCT 75 70 - 99 mg/dL 05/24/2024 12:26 PM CDT LABORATORY POC Blood, Capillary BLOOD SPECIMEN / Unknown 05/24/2024 12:20 PM CDT 05/24/2024 12:26 PM CDT Antonino Cheek MD LAB - BEAKER POCT LABORATORY [facility] Lab [address] Lab (1st floor, no room number) [address] [place] [address] * Glucose by meter (05/24/2024 9:12 AM CDT) GLUCOSE BY METER POCT 86 70 - 99 mg/dL 05/24/2024 9:19 AM CDT RH LABORATORY POC Blood, Capillary BLOOD SPECIMEN / Unknown 05/24/2024 9:12 AM CDT 05/24/2024 9:19 AM CDT [facility]ek [facility] Acute Care Lab [address] Lab (1st floor, no room number) [place] [address], [facility] * (ABNORMAL) CBC [...] MD LAB - BLOOD ORDERABL ES LABORATORY [facility] Acute Care Lab [address] [facility] Lab (1st floor, no room number) [place] [address], [facility] * (ABNORMAL) Comprehensive [...] MD LAB - BLOOD ORDERABL ES LABORATORY [facility] Acute Care Lab [address] Lab (1st floor, no room number) [address] * INR (05/24/2024 6:09 AM CDT) INR 1.14 0.85 - 1.15 05/24/2024 6:27 AM CDT RH LABORATORY Blood STRUCTURE OF LEFT HAND / Unknown Venipuncture / Unknown 05/24/2024 6:09 AM CDT 05/24/2024 6:14 AM CDT Lizandro Barron MD LAB - BLOOD ORDERABL ES [facility] Lab [address] [facility] Lab (1st floor, no room number) [address] * (ABNORMAL) Glucose by meter (05/24/2024 4:49 AM CDT) GLUCOSE BY METER POCT 119(H) 70 - 99 mg/dL 05/24/2024 4:56 AM CDT LABORATORY POC Blood, Capillary BLOOD SPECIMEN / Unknown 05/24/2024 4:49 AM CDT 05/24/2024 4:56 AM CDT Antonino DEAN - BEAKER POCT Performing Organization Address [facility]/ZIP Co de Phone Number LABORATORY [facility] Lab [address] Lab (1st floor, no room number) [address] * (ABNORMAL) Glucose by meter (05/24/2024 1:13 AM CDT) GLUCOSE BY METER POCT 100(H) 70 - 99 mg/dL 05/24/2024 1:20 AM CDT LABORATORY POC Blood, Capillary BLOOD SPECIMEN / Unknown 05/24/2024 1:13 AM CDT 05/24/2024 1:20 AM CDT Antonino DEAN - BEAKER POCT LABORATORY [facility] Care Lab [address] Lab (1st floor, no room number) [address] * INR (05/23/2024 10:19 PM CDT) INR 1.04 0.85 - 1.15 05/23/2024 10:43 PM CDT RH LABORATORY Blood STRUCTURE OF LEFT UPPER LIMB / Unknown Venipuncture / Unknown 05/23/2024 10:19 PM CDT 05/23/2024 10:26 PM CDT Lizandro Barron MD LAB - BLOOD ORDERABL ES [facility] Lab [address] Lab (1st floor, no room number) [address] * Glucose by meter (05/23/2024 9:58 PM CDT) GLUCOSE BY METER POCT 83 70 - 99 mg/dL 05/23/2024 10:04 PM CDT LABORATORY POC Blood, Capillary BLOOD SPECIMEN / Unknown 05/23/2024 9:58 PM CDT 05/23/2024 10:04 PM CDT Antonino Cheek MD LAB - BEAKER POCT LABORATORY [facility] Care Lab [address] Lab (1st floor, no room number) [address] * (ABNORMAL) Glucose by meter (05/23/2024 9:06 PM CDT) GLUCOSE BY METER POCT 47(LL) 70 - 99 mg/dL 05/23/2024 9:13 PM CDT RH LABORATORY POC Comment:Dr/RN Notified Blood, Capillary BLOOD SPECIMEN / Unknown 05/23/2024 9:06 PM CDT 05/23/2024 9:13 PM CDT Antonino Cheek MD LAB - BEAKER POCT LABORATORY [facility] Lab [address] Lab (1st floor, no room number) [address] * Glucose by meter (05/23/2024 8:41 PM CDT) GLUCOSE BY METER POCT 78 70 - 99 mg/dL 05/23/2024 8:48 PM CDT LABORATORY POC Blood, Capillary BLOOD SPECIMEN / Unknown 05/23/2024 8:41 PM CDT 05/23/2024 8:48 PM CDT Antonino Cheek MD LAB - BEAKER POCT Performing Organization Address [facility]/ZIP Co de Phone Number LABORATORY [facility] Lab [address] Lab (1st floor, no room number) [address] * (ABNORMAL) Glucose by meter (05/23/2024 7:55 PM CDT) GLUCOSE BY METER POCT 67(L) 70 - 99 mg/dL 05/23/2024 8:02 PM CDT LABORATORY POC Blood, Capillary BLOOD SPECIMEN / Unknown 05/23/2024 7:55 PM CDT 05/23/2024 8:02 PM CDT Antonino Cheek MD LAB - BEAKER POCT LABORATORY [facility] Lab [address] Lab (1st floor, no room number) [address] * (ABNORMAL) Tissue Aerobic Bacterial Culture [...] [facility] [address] [facility], [address] * (ABNORMAL) Gram Stain (05/23/2024 6:42 [...] - MICRO GENERAL ORDERABLES Performing Organization Address City/[facility]/ZIP Co de Phone Number UU IDD LABORATORY [facility] Lab [address] [facility], [address] * Anaerobic Bacterial Culture Routine (05/23/2024 [...] [facility] [address] [facility], [address] [place] [address], [facility] * Glucose by meter (05/23/2024 5:41 PM CDT) GLUCOSE BY METER POCT 90 70 - 99 mg/dL 05/23/2024 5:49 PM CDT RH LABORATORY POC Blood, Capillary BLOOD SPECIMEN / Unknown 05/23/2024 5:41 PM CDT 05/23/2024 5:49 PM CDT Vi Coe DO LAB - BEAKER POC T LABORATORY POC [facility] Acute Care Lab [address] Lab (1st floor, no room number) [place] [address], [facility] * EKG 12-lead, tracing only (05/23/2024 5:08 PM CDT) Systolic Blood Pressure mmHg RADIOLOGY RESULTS Diastolic Blood Pressure mmHg RADIOLOGY RESULTS Ventricular Rate 63 BPM RAD IOLOGY RESULTS Atrial Rate 63 BPM RADIOLOG Y RESULTS [place] Interval 222 ms RADIOLOG Y RESULTS QRS Duration 102 ms RADIOLO GY RESULTS QT 448 ms RADIOLOGY RESULTS QTc 458 ms RADIOLOGY RESULTS P [place] 54 degrees RADIOLOGY RESULTS R AXIS -5 degrees RADIOLOGY RESULTS T [place] 24 degrees RADIOLOGY RESULTS Interpretation ECG Sinus rhythm with 1st degree A-V block Septal infarct , age undetermined Abnormal ECG When compared with ECG of 02-Mar-2024 14:00, Septal infarct is now Present No significant change was found Confirmed by - EMERGENCY ROOM, PHYSICIAN ([id number]), legal editor LIZANDRO ZABALA ([id number]) on 05/24/2024 6:44:53 AM RADIOLOGY RESULTS 05/23/2024 5:08 PM CDT 05/24/2024 6:44 AM CDT Pan Michelle MD ECG ORDERABLES RADIOLOGY RESULTS * (ABNORMAL) INR (05/23/2024 3:42 PM CDT) INR 1.29(H) 0.85 - 1.15 05/23/2024 4:21 PM CDT RH LABORATORY Blood BLOOD SPECIMEN / Unknown Venipuncture / Unknown 05/23/2024 3:42 PM CDT 05/23/2024 3:45 PM CDT Vi Coe DO LAB - BLOOD ORDE MYRANDA [facility] Organization Address City/State/ZIP Co de Phone Number LABORATORY [facility] Acute Care Lab [address] [facility] Lab (1st floor, no room number) [place] [address] * CT Abdomen Pelvis w Contrast (05/23/2024 [...] 2:35 PM. MIKE LIPSCOMB MD SYSTEM ID: [id number] Narrative 05/23/2024 2:[address] ABDOMEN [...] veins which are not included in the [id number]. MUSCULOSKELETAL: Stable degenerative changes at L4-L5 with [...] veins which are not included in the [id number]. 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 No destructive lesions in the bones. IMPRESSION: 1. 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 2. Other chronic findings as discussed above. Findings were discussed with Dr. Kenna Coe at 2:35 PM. MIKE LIPSCOMB MD SYSTEM ID: [id number] Vi Coe DO IMG CT ORDERABLE S * Adult Type and Screen (05/23/2024 2:07 PM CDT) ABO/RH(D) O POS 05/23/2024 1:37 PM CDT RH BLOOD BANK Antibody Screen Negative Negative 05/23/2024 1:37 PM CDT RH BLOOD BANK SPECIMEN EXPIRATION DATE [id number] 05/23/2024 1:37 PM CDT RH BLOOD BANK Blood BLOOD SPECIMEN / Unknown Venipuncture / Unknown 05/23/2024 2:07 PM CDT 05/23/2024 2:10 PM CDT Vi Coe DO LAB - BLOOD BANK TEST ORDER RH BLOOD BANK [address] [place] [address], [facility] * (ABNORMAL) CBC [...] LAB - BLOOD ROVERTO WHITMORE RH LABORATORY [facility] Acute Care Lab [address] [facility] Lab (1st floor, no room number) [place] [address], [facility] * Lactic acid whole blood (05/23/2024 1:50 PM CDT) Lactic Acid 0.9 0.7 - 2.0 mmol/L 05/23/2024 1:57 PM CDT RH LABORATORY Blood BLOOD SPECIMEN / Unknown Venipuncture / Unknown 05/23/2024 1:50 PM CDT 05/23/2024 1:54 PM CDT Vi Coe DO LAB - BLOOD ORDE RABLES RH LABORATORY [facility] Acute Care Lab [address] Lab (1st floor, no room number) [place] [address] * Blood Culture Peripheral Blood (05/23/2024 1:50 PM CDT) Culture No Growth 05/28/2024 4:06 PM CDT UU IDD LABORATORY Blood BLOOD SPECIMEN / Unknown Venipuncture / Unknown 05/23/2024 1:50 PM CDT 05/23/2024 1:53 PM CDT Vi Coe DO LAB - MICRO GENE RAL ORDERABLES UU IDD LABORATORY [facility] Inf. Diseases Diag. Lab [address] [facility], [address] [place] [address] * (ABNORMAL) Comprehensive metabolic panel (05/23/2024 1:50 [...] DO LAB - BLOOD ROVERTO WHITMORE LABORATORY [facility] Acute Care Lab [address] [facility] Lab (1st floor, no room number) [place] [address], [facility] * (ABNORMAL) INR (05/23/2024 1:50 PM CDT) INR >10.00(HH) 0.85 - 1.15 05/23/2024 2:30 PM CDT LABORATORY Blood BLOOD SPECIMEN / Unknown Venipuncture / Unknown 05/23/2024 1:50 PM CDT 05/23/2024 1:55 PM CDT Vi Riverared Coe DO LAB - BLOOD ROVERTO WHITMORE [facility] Organization Address City/State/ZIP Co de Phone Number LABORATORY [facility] Acute Care Lab [address] Lab (1st floor, no room number) [place] [address], [facility] documented in this encounter Visit [...] Dialysis 0949 ($New Bag - Provider: Cintia Vlaadez RN)[id number] (Stopped - Provider: Cintia Valadez RN) [...] stools. documented in this encounter Care Teams Care Transport Nurse Relationship Specialty Start Date End Date Cornell Butt PCP - General 06/24/11 documented as of this encounter
--- OUTSIDE RECORDS SUMMARY | 2024-07-19 10:14 | XMS_ITS | Encounter Summary ---
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 Occupational Therapy Discharge Summary Reason for therapy discharge: Discharged to home with home therapy. Progress towards therapy goal(s). See goals on Care Plan in [facility] electronic health record for goal details. Goals partially met. Barriers to achieving goals: discharge from facility. Therapy recommendation(s): Continued therapy is recommended. Rationale/Recommendations: Patient appears safe and able todischarge home with intermittent assist from family with higher level IADLS (just like baseline). Pt wouldbeenfit from HHOT to progress ADL tolerance. Pt not seen by policy writer sales on this date, note written based on previous treating OT's note and recommendations. * Plan of Care - Joann Marnielli PT - 05/30/2024 5:21 PM CDT Physical [...] of DVT/PE prophylaxis. 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 Pertinent assessments: Assumed cares @ [phone].Disoriented to situation and time. VSS on RA. [...] shift note. Outcome: Progressing Flowsheets (Taken 05/28/2024 0667) Outcome Evaluation: Denies pain, slept well. Goal: [...] Flowsheet Documentation Taken 05/27/2024919 by Edie Pack RNresearch contracts supervisor Interventions: declines Goal: Readiness for Transition of [...] documentation flowsheets. Pertinent assessments: Assumed cares @ 0412-4435.Disoriented to time and situation. VSS on RA. 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 Outcome: Progressing Flowsheets (Taken 05/24/2024 3904) Outcome Evaluation: Scrotal dressing changed twice. Did [...] Fall Risk Recent Flowsheet Documentation Taken 05/24/2024 3078 by Jessica Paz RN Safety Promotion/Fall Prevention: [...] member and Thelma (aunt) via phone and [phone] Pertinent Information: outside meds--none added Changes made to COMMUNITY ORGANIZATION WORKER medication list: Added: none Deleted: norvasc, lipitor, Changed: protonix Allergies reviewed with patient and updates made in EHR: yes Medication History Completed By: Graham Joseph RPH 05/23/2024 9:51 PM COMMUNITY ORGANIZATION WORKER Med List Medication Sig Last Dose B Owozbig-P-Kevrk Acid (WESCAPS PO) Take 1 capsule by [...] and procedure to be performed. A 16 Bur[place]ian coud?? catheter was placed through the urethra, [...] in stable condition. Lizandro Barron MD Urology [facility] documented in this encounter [...] Cheek MD LAB - BEAKER POCT LABORATORY [facility] [address] [employer] Lab (1st floor, no room number) [address] * Glucose by meter (05/30/2024 7:13 AM CDT) GLUCOSE BY METER POCT 82 70 - 99 mg/dL 05/30/2024 7:19 AM CDT LABORATORY POC Blood, Capillary BLOOD SPECIMEN / Unknown 05/30/2024 7:13 AM CDT 05/30/2024 7:19 AM CDT Antonino Cheek MD LAB - BEAKER POCT LABORATORY [facility] [address] Lab (1st floor, no room number) [address] * (ABNORMAL) INR (05/30/2024 6:54 AM CDT) INR 2.26(H) 0.85 - 1.15 05/30/2024 7:20 AM CDT RH LABORATORY Blood STRUCTURE OF RIGHT HAND / Unknown Venipuncture / Unknown 05/30/2024 6:54 AM CDT 05/30/2024 7:06 AM CDT Antonino Cheek MD LAB - BLOOD ORDERABL ES RH LABORATORY [facility] [address] Lab (1st floor, no room number) [place] [address] * (ABNORMAL) Basic metabolic panel (05/30/2024 [...] [facility] [address] Lab (1st floor, no room number) [place] [address] * (ABNORMAL) CBC with platelets (05/30/2024 [...] MD LAB - BLOOD ORDERABL ES LABORATORY [facility] [address] Lab (1st floor, no room number) [place] [phone] [place] [address] * (ABNORMAL) Glucose by meter (05/30/2024 2:18 AM CDT) GLUCOSE BY METER POCT 138(H) 70 - 99 mg/dL 05/30/2024 2:24 AM CDT RH LABORATORY POC Blood, Capillary BLOOD SPECIMEN / Unknown 05/30/2024 2:18 AM CDT 05/30/2024 2:24 AM CDT Antonino Cheek MD LAB - BEAKER POCT LABORATORY [facility] [address] [employer] Lab (1st floor, no room number) [address] * (ABNORMAL) Glucose by meter (05/29/2024 9:28 PM CDT) GLUCOSE BY METER POCT 160(H) 70 - 99 mg/dL 05/29/2024 9:35 PM CDT LABORATORY POC Blood, Capillary BLOOD SPECIMEN / Unknown 05/29/2024 9:28 PM CDT 05/29/2024 9:35 PM CDT Antonino Cheek MD LAB - BEAKER POCT LABORATORY [facility] [address] Lab (1st floor, no room number) [address] * (ABNORMAL) Glucose by meter (05/29/2024 5:54 PM CDT) GLUCOSE BY METER POCT 159(H) 70 - 99 mg/dL 05/29/2024 6:01 PM CDT LABORATORY POC Blood, Capillary BLOOD SPECIMEN / Unknown 05/29/2024 5:54 PM CDT 05/29/2024 6:01 PM CDT Antonino Cheek MD LAB - BEAKER POCT Performing Organization Address City/[facility]/ZIP Co de Phone Number LABORATORY [facility] [address] Lab (1st floor, no room number) [place] [phone] [place] [address] * (ABNORMAL) Glucose by meter (05/29/2024 1:41 PM CDT) GLUCOSE BY METER POCT 158(H) 70 - 99 mg/dL 05/29/2024 1:48 PM CDT RH LABORATORY POC Blood, Capillary BLOOD SPECIMEN / Unknown 05/29/2024 1:41 PM CDT 05/29/2024 1:48 PM CDT Antonino Cheek MD LAB - DAVID POCT Performing Organization Address [facility]/ZIP Co de Phone Number LABORATORY [facility] [address] Lab (1st floor, no room number) [address] [place] [address] * Glucose by meter (05/29/2024 7:54 AM CDT) GLUCOSE BY METER POCT 90 70 - 99 mg/dL 05/29/2024 8:01 AM CDT RH LABORATORY POC Blood, Capillary BLOOD SPECIMEN / Unknown 05/29/2024 7:54 AM CDT 05/29/2024 8:01 AM CDT Antonino DEAN - BEXIANG POCT Performing Organization Address City/[facility]/ZIP Co de Phone Number LABORATORY [facility] [address] Lab (1st floor, no room number) [place] [phone] * (ABNORMAL) INR (05/29/2024 6:22 AM CDT) INR 1.92(H) 0.85 - 1.15 05/29/2024 6:52 AM CDT RH LABORATORY Blood STRUCTURE OF RIGHT HAND / Unknown Venipuncture / Unknown 05/29/2024 6:22 AM CDT 05/29/2024 6:40 AM CDT Antonino Cheek MD LAB - BLOOD ORDERABL ES LABORATORY [facility] [address] Lab (1st floor, no room number) [place] [address], [facility] * (ABNORMAL) Basic metabolic panel (05/29/2024 6:22 [...] MD LAB - BLOOD ORDERABL ES LABORATORY [facility] [address] Lab (1st floor, no room number) [place] [address] * (ABNORMAL) CBC with platelets (05/29/2024 6:22 AM CDT) [facility] WBC Count 7.2 4.0 - 11.0 [...] MD LAB - BLOOD ORDERABL ES LABORATORY [facility] [address] Lab (1st floor, no room number) [place] [address], [facility] * (ABNORMAL) Glucose by meter (05/29/2024 2:26 AM CDT) GLUCOSE BY METER POCT 103(H) 70 - 99 mg/dL 05/29/2024 2:33 AM CDT RH LABORATORY POC Blood, Capillary BLOOD SPECIMEN / Unknown 05/29/2024 2:26 AM CDT 05/29/2024 2:33 AM CDT Antonino Cheek MD LAB - BEAKER POCT LABORATORY [facility] [address] [employer] Lab (1st floor, no room number) [address] [place] [address] * (ABNORMAL) Glucose by meter (05/28/2024 9:50 PM CDT) GLUCOSE BY METER POCT 102(H) 70 - 99 mg/dL 05/28/2024 9:56 PM CDT RH LABORATORY POC Blood, Capillary BLOOD SPECIMEN / Unknown 05/28/2024 9:50 PM CDT 05/28/2024 9:56 PM CDT Antonino DEAN - BEXIANG POCT Performing Organization Address [facility]/ZIP Co de Phone Number LABORATORY [facility] [address] Lab (1st floor, no room number) [place] [phone] [place] [address] * (ABNORMAL) Glucose by meter (05/28/2024 5:08 PM CDT) GLUCOSE BY METER POCT 254(H) 70 - 99 mg/dL 05/28/2024 5:16 PM CDT LABORATORY POC Blood, Capillary BLOOD SPECIMEN / Unknown 05/28/2024 5:08 PM CDT 05/28/2024 5:16 PM CDT Antonino DEAN - DAVID POCT LABORATORY [facility] [address] Lab (1st floor, no room number) [place] [phone] [place] [address] * Glucose by meter (05/28/2024 1:58 PM CDT) GLUCOSE BY METER POCT 91 70 - 99 mg/dL 05/28/2024 2:05 PM CDT RH LABORATORY POC Blood, Capillary BLOOD SPECIMEN / Unknown 05/28/2024 1:58 PM CDT 05/28/2024 2:05 PM CDT Antonino Cheek MD LAB - BEAKER POCT LABORATORY [facility] [address] Lab (1st floor, no room number) [place] [phone] [place] [address] * (ABNORMAL) Glucose by meter (05/28/2024 7:48 AM CDT) GLUCOSE BY METER POCT 128(H) 70 - 99 mg/dL 05/28/2024 7:54 AM CDT RH LABORATORY POC Blood, Capillary BLOOD SPECIMEN / Unknown 05/28/2024 7:48 AM CDT 05/28/2024 7:54 AM CDT Antonino Cheek MD LAB - BEAKER POCT LABORATORY [facility] [address] Lab (1st floor, no room number) [place] [phone] * Extra Purple Top EDTA (LAB USE ONLY) (05/28/2024 6:07 AM CDT) Hold Specimen JIC 05/28/2024 7:32 AM CDT LABORATORY Blood STRUCTURE OF LEFT HAND / Unknown Venipuncture / Unknown 05/28/2024 6:07 AM CDT 05/28/2024 6:17 AM CDT Antonino Cheek MD LAB - BLOOD ORDERABL ES Performing Organization Address [facility]/ZIP Co de Phone Number LABORATORY [facility] [address] Lab (1st floor, no room number) [place] [phone] [place] [address] * Extra Green Top Tube (LAB USE ONLY) (05/28/2024 6:07 AM CDT) Hold Specimen JIC 05/28/2024 7:32 AM CDT RH LABORATORY Blood STRUCTURE OF LEFT HAND / Unknown Venipuncture / Unknown 05/28/2024 6:07 AM CDT 05/28/2024 6:17 AM CDT Antonino Cheek MD LAB - BLOOD ORDERABL ES Performing Organization Address [facility] Co de Phone Number [facility] [address] Lab (1st floor, no room number) [place] [phone] [place] [address] * (ABNORMAL) INR (05/28/2024 6:07 AM CDT) INR 1.87(H) 0.85 - 1.15 05/28/2024 6:27 AM CDT RH LABORATORY Blood STRUCTURE OF LEFT HAND / Unknown Venipuncture / Unknown 05/28/2024 6:07 AM CDT 05/28/2024 6:17 AM CDT Antonino Cheek MD LAB - BLOOD ORDERABL ES Performing Organization Address [facility]/ZIP Co de Phone Number [facility] [address] Lab (1st floor, no room number) [place] [phone] [place] [address] * (ABNORMAL) Hemoglobin (05/28/2024 6:07 AM CDT) Hemoglobin 7.7(L) 13.3 - 17.7 g/dL 05/28/2024 9:02 AM CDT RH LABORATORY Blood STRUCTURE OF LEFT HAND / Unknown Venipuncture / Unknown 05/28/2024 6:07 AM CDT 05/28/2024 6:17 AM CDT Dileep Anders MD LAB - BLOOD ORD ERABLES LABORATORY [facility] [address] Lab (1st floor, no room number) [place] [address], [facility] * (ABNORMAL) Basic metabolic panel (05/28/2024 6:07 [...] Anders MD LAB - BLOOD ORD ERABLES [facility] [address] Lab (1st floor, no room number) [place] [address], [facility] * (ABNORMAL) Glucose by meter (05/28/2024 2:19 AM CDT) GLUCOSE BY METER POCT 102(H) 70 - 99 mg/dL 05/28/2024 2:26 AM CDT RH LABORATORY POC Blood, Capillary BLOOD SPECIMEN / Unknown 05/28/2024 2:19 AM CDT 05/28/2024 2:26 AM CDT Antonino DEAN - BEAKER POCT Performing Organization Address [facility]/ZIP Co de Phone Number LABORATORY [facility] [address] Lab (1st floor, no room number) [place] [address], [facility] * (ABNORMAL) Glucose by meter (05/27/2024 9:05 PM CDT) GLUCOSE BY METER POCT 148(H) 70 - 99 mg/dL 05/27/2024 9:13 PM CDT LABORATORY POC Blood, Capillary BLOOD SPECIMEN / Unknown 05/27/2024 9:05 PM CDT 05/27/2024 9:13 PM CDT Antonino Cheek MD LAB - BEAKER POCT LABORATORY [facility] [address] Lab (1st floor, no room number) [place] [address], [facility] * (ABNORMAL) Glucose by meter (05/27/2024 5:11 PM CDT) GLUCOSE BY METER POCT 148(H) 70 - 99 mg/dL 05/27/2024 5:20 PM CDT RH LABORATORY POC Blood, Capillary BLOOD SPECIMEN / Unknown 05/27/2024 5:11 PM CDT 05/27/2024 5:20 PM CDT Antonino DEAN - BEXIANG POCT LABORATORY [facility] [address] Lab (1st floor, no room number) [place] [phone] [place] [address] * (ABNORMAL) Glucose by meter (05/27/2024 11:42 AM CDT) GLUCOSE BY METER POCT 149(H) 70 - 99 mg/dL 05/27/2024 11:49 AM CDT LABORATORY POC Blood, Capillary BLOOD SPECIMEN / Unknown 05/27/2024 11:42 AM CDT 05/27/2024 11:49 AM CDT Antonino DEAN - BEXIANG POCT Performing Organization Address City/[facility]/ZIP Co de Phone Number LABORATORY [facility] [address] Lab (1st floor, no room number) [place] [phone], [facility] * (ABNORMAL) Glucose by meter (05/27/2024 7:44 AM CDT) GLUCOSE BY METER POCT 108(H) 70 - 99 mg/dL 05/27/2024 7:51 AM CDT LABORATORY POC Blood, Capillary BLOOD SPECIMEN / Unknown 05/27/2024 7:44 AM CDT 05/27/2024 7:51 AM CDT Antonino DEAN - BEXIANG POCT LABORATORY [facility] [address] Lab (1st floor, no room number) [place] [phone], [facility] * (ABNORMAL) INR (05/27/2024 7:03 AM CDT) INR 1.81(H) 0.85 - 1.15 05/27/2024 7:17 AM CDT RH LABORATORY Blood STRUCTURE OF RIGHT HAND / Unknown Venipuncture / Unknown 05/27/2024 7:03 AM CDT 05/27/2024 7:07 AM CDT Antonino Cheek MD LAB - BLOOD ORDERABL ES [facility] Lab [address] Lab (1st floor, no room number) [address] [place] [address] * (ABNORMAL) Glucose by meter (05/27/2024 2:03 AM CDT) GLUCOSE BY METER POCT 157(H) 70 - 99 mg/dL 05/27/2024 2:10 AM CDT LABORATORY POC Blood, Capillary BLOOD SPECIMEN / Unknown 05/27/2024 2:03 AM CDT 05/27/2024 2:10 AM CDT Antonino Cheek MD LAB - BEAKER POCT Performing Organization Address [facility]/ZIP Co de Phone Number LABORATORY [facility] [address] Lab (1st floor, no room number) [place] [phone] * (ABNORMAL) Glucose by meter (05/26/2024 9:29 PM CDT) GLUCOSE BY METER POCT 155(H) 70 - 99 mg/dL 05/26/2024 9:37 PM CDT LABORATORY POC Blood, Capillary BLOOD SPECIMEN / Unknown 05/26/2024 9:29 PM CDT 05/26/2024 9:37 PM CDT Antonino Cheek MD LAB - BEAKER POCT LABORATORY [facility] [address] Lab (1st floor, no room number) [address] * (ABNORMAL) Glucose by meter (05/26/2024 4:10 PM CDT) GLUCOSE BY METER POCT 174(H) 70 - 99 mg/dL 05/26/2024 4:19 PM CDT RH LABORATORY POC Blood, Capillary BLOOD SPECIMEN / Unknown 05/26/2024 4:10 PM CDT 05/26/2024 4:19 PM CDT Antonino Cheek MD LAB - BEAKER POCT LABORATORY POC [facility] [address] Lab (1st floor, no room number) [address] * (ABNORMAL) INR (05/26/2024 4:09 PM CDT) INR 1.67(H) 0.85 - 1.15 05/26/2024 4:28 PM CDT RH LABORATORY Blood STRUCTURE OF LEFT UPPER LIMB / Unknown Venipuncture / Unknown 05/26/2024 4:09 PM CDT 05/26/2024 4:15 PM CDT Antonino Cheek MD LAB - BLOOD ORDERABL ES LABORATORY [facility] [address] Lab (1st floor, no room number) [address] * (ABNORMAL) Glucose by meter (05/26/2024 11:37 AM CDT) GLUCOSE BY METER POCT 197(H) 70 - 99 mg/dL 05/26/2024 11:44 AM CDT RH LABORATORY POC Blood, Capillary BLOOD SPECIMEN / Unknown 05/26/2024 11:37 AM CDT 05/26/2024 11:44 AM CDT Antonino F Cheek MD LAB - BEAKER POCT RH LABORATORY [facility] [address] Lab (1st floor, no room number) [place] [phone] [place] [address] * Glucose by meter (05/26/2024 8:22 AM CDT) GLUCOSE BY METER POCT 85 70 - 99 mg/dL 05/26/2024 8:29 AM CDT LABORATORY POC Blood, Capillary BLOOD SPECIMEN / Unknown 05/26/2024 8:22 AM CDT 05/26/2024 8:29 AM CDT Antonino HERNANDEZ POCT Performing Organization Address [facility]/ZIP Co de Phone Number RH LABORATORY [facility] [address] Lab (1st floor, no room number) [address] [place] [address] * (ABNORMAL) CBC with platelets and differential [...] [facility] [address] Lab (1st floor, no room number) [place] [address], [facility] * (ABNORMAL) Basic metabolic panel (05/26/2024 [...] MD LAB - BLOOD ORDERABL ES LABORATORY [facility] [address] [facility] Lab (1st floor, no room number) [place] [address], [facility] * (ABNORMAL) Glucose by meter (05/26/2024 1:57 AM CDT) GLUCOSE BY METER POCT 123(H) 70 - 99 mg/dL 05/26/2024 2:04 AM CDT RH LABORATORY POC Blood, Capillary BLOOD SPECIMEN / Unknown 05/26/2024 1:57 AM CDT 05/26/2024 2:04 AM CDT Antonino Cheek MD LAB - BEAKER POCT LABORATORY [facility] [address] Lab (1st floor, no room number) [address] * (ABNORMAL) Glucose by meter (05/25/2024 9:32 PM CDT) GLUCOSE BY METER POCT 155(H) 70 - 99 mg/dL 05/25/2024 9:39 PM CDT RH LABORATORY POC Blood, Capillary BLOOD SPECIMEN / Unknown 05/25/2024 9:32 PM CDT 05/25/2024 9:39 PM CDT Antonino Cheek MD LAB - BEAKER POCT Performing Organization Address City/[facility]/ZIP Co de Phone Number LABORATORY [facility] [address] Lab (1st floor, no room number) [address] * (ABNORMAL) Glucose by meter (05/25/2024 7:06 PM CDT) GLUCOSE BY METER POCT 183(H) 70 - 99 mg/dL 05/25/2024 7:14 PM CDT RH LABORATORY POC Blood, Capillary BLOOD SPECIMEN / Unknown 05/25/2024 7:06 PM CDT 05/25/2024 7:14 PM CDT Antonino Cheek MD LAB - BEAKER POCT LABORATORY [facility] [address] Lab (1st floor, no room number) [address] * (ABNORMAL) Glucose by meter (05/25/2024 5:29 PM CDT) GLUCOSE BY METER POCT 142(H) 70 - 99 mg/dL 05/25/2024 5:36 PM CDT LABORATORY POC Blood, Capillary BLOOD SPECIMEN / Unknown 05/25/2024 5:29 PM CDT 05/25/2024 5:36 PM CDT Antonino Cheek MD LAB - BEAKER POCT LABORATORY [facility] [address] [employer] Lab (1st floor, no room number) [address] * Vancomycin level (05/25/2024 2:04 PM CDT) Vancomycin 11.9 ug/mL 05/25/2024 3:28 PM CDT RH LABORATORY Comment: Traditional Dosing Therapeutic Range: Trough 10-15 ug/mL Peak 20-40 ug/mL Critical: Greater than 25.0 ug/mL Blood STRUCTURE OF RIGHT UPPER LIMB / Unknown Venipuncture / Unknown 05/25/2024 2:04 PM CDT 05/25/2024 2:07 PM CDT Antonino Cheek MD LAB - BLOOD ORDERABL ES LABORATORY [facility] [address] Lab (1st floor, no room number) [place] [phone] * Extra Purple Top EDTA (LAB USE ONLY) (05/25/2024 2:04 PM CDT) Hold Specimen JIC 05/25/2024 3:17 PM CDT RH LABORATORY Blood STRUCTURE OF RIGHT UPPER LIMB / Unknown Venipuncture / Unknown 05/25/2024 2:04 PM CDT 05/25/2024 2:07 PM CDT Antonino Cheek MD LAB - BLOOD ORDERABL ES LABORATORY [facility] [address] Lab (1st floor, no room number) [place] [phone] [place] [address] * Extra Green Top Tube (LAB USE ONLY) (05/25/2024 2:04 PM CDT) Hold Specimen JIC 05/25/2024 3:17 PM CDT LABORATORY Blood STRUCTURE OF RIGHT UPPER LIMB / Unknown Venipuncture / Unknown 05/25/2024 2:04 PM CDT 05/25/2024 2:07 PM CDT Antonino Cheek MD LAB - BLOOD ORDERABL ES Performing Organization Address City/[facility]/ZIP Co de Phone Number LABORATORY [facility] [address] Lab (1st floor, no room number) [place] [phone] [place] [address] * Glucose by meter (05/25/2024 2:01 PM CDT) GLUCOSE BY METER POCT 70 70 - 99 mg/dL 05/25/2024 2:08 PM CDT LABORATORY POC Blood, Capillary BLOOD SPECIMEN / Unknown 05/25/2024 2:01 PM CDT 05/25/2024 2:08 PM CDT Antonino Cheek MD LAB - BEAKER POCT LABORATORY POC [facility] [address] Lab (1st floor, no room number) [place] [phone] [place] [address] * Hepatitis B surface antigen (05/25/2024 9:25 AM CDT) Hepatitis B Surface Antigen Nonreactive Nonreactive 05/25/2024 2:23 PM CDT [facility] LABORATORY Blood BLOOD SPECIMEN / Unknown Venipuncture / Unknown 05/25/2024 9:25 AM CDT 05/25/2024 10:13 AM CDT Jose Enrique Naylor MD LAB - BLOOD ORDERABL ES Performing Organization Address City/[facility]/ZIP Co de Phone Number LABORATORY [facility] [address] [facility], [address] [id number] * Hepatitis B Surface Antibody (05/25/2024 [...] - BLOOD ORDERABL ES Performing Organization Address [facility] Co de Phone Number LABORATORY [facility] [place] [facility] [address] [facility], Room [address] [address] * Glucose by meter (05/25/2024 5:35 AM CDT) GLUCOSE BY METER POCT 86 70 - 99 mg/dL 05/25/2024 5:42 AM CDT LABORATORY POC Blood, Capillary BLOOD SPECIMEN / Unknown 05/25/2024 5:35 AM CDT 05/25/2024 5:42 AM CDT Antonino DEAN - BEAKER POCT LABORATORY [facility] Lab [address] Lab (1st floor, no room number) [place] [phone] * Glucose by meter (05/25/2024 2:01 AM CDT) GLUCOSE BY METER POCT 86 70 - 99 mg/dL 05/25/2024 2:08 AM CDT RH LABORATORY POC Blood, Capillary BLOOD SPECIMEN / Unknown 05/25/2024 2:01 AM CDT 05/25/2024 2:08 AM CDT Antonino Cheek MD LAB - BEAKER POCT Performing Organization Address City/[facility]/ZIP Co de Phone Number LABORATORY [facility] Lab [address] Lab (1st floor, no room number) [place] [phone] * Glucose by meter (05/24/2024 8:52 PM CDT) GLUCOSE BY METER POCT 96 70 - 99 mg/dL 05/24/2024 8:59 PM CDT LABORATORY POC Blood, Capillary BLOOD SPECIMEN / Unknown 05/24/2024 8:52 PM CDT 05/24/2024 8:59 PM CDT Antonino DEAN - BEXIANG POCT Performing Organization Address City/[facility]/ZIP Co de Phone Number LABORATORY [facility] Lab [address] Lab (1st floor, no room number) [place] [phone] [place] [address] * Glucose by meter (05/24/2024 5:05 PM CDT) GLUCOSE BY METER POCT 84 70 - 99 mg/dL 05/24/2024 5:32 PM CDT LABORATORY POC Blood, Capillary BLOOD SPECIMEN / Unknown 05/24/2024 5:05 PM CDT 05/24/2024 5:32 PM CDT Antonino DEAN - DAVID POCT Performing Organization Address [facility]/ZIP Co de Phone Number LABORATORY [facility] [address] Lab (1st floor, no room number) [address] [place] [address] * (ABNORMAL) INR (05/24/2024 2:16 PM CDT) INR 1.16(H) 0.85 - 1.15 05/24/2024 2:34 PM CDT RH LABORATORY Blood BLOOD SPECIMEN / Unknown Venipuncture / Unknown 05/24/2024 2:16 PM CDT 05/24/2024 2:21 PM CDT Lizandro Barron MD LAB - BLOOD ORDERABL ES Performing Organization Address City/[facility]/ZIP Co de Phone Number [facility] Lab [address] Lab (1st floor, no room number) [place] [phone] [place] [address] * Glucose by meter (05/24/2024 12:20 PM CDT) GLUCOSE BY METER POCT 75 70 - 99 mg/dL 05/24/2024 12:26 PM CDT LABORATORY POC Blood, Capillary BLOOD SPECIMEN / Unknown 05/24/2024 12:20 PM CDT 05/24/2024 12:26 PM CDT Antonino HERNANDEZ POCT Performing Organization Address [facility]/ZIP Co de Phone Number LABORATORY [facility] [address] Lab (1st floor, no room number) [place] [phone] [place] [address] * Glucose by meter (05/24/2024 9:12 AM CDT) GLUCOSE BY METER POCT 86 70 - 99 mg/dL 05/24/2024 9:19 AM CDT LABORATORY POC Blood, Capillary BLOOD SPECIMEN / Unknown 05/24/2024 9:12 AM CDT 05/24/2024 9:19 AM CDT Antonino Cheek MD LAB - [facility] POCT RH LABORATORY [facility] Lab [address] Lab (1st floor, no room number) [place] [address], [facility] * (ABNORMAL) CBC with platelets and [...] MD LAB - BLOOD ORDERABL ES LABORATORY [facility] Acute Care Lab [address] [facility] Lab (1st floor, no room number) [place] [address], [facility] * (ABNORMAL) Comprehensive metabolic panel (05/24/2024 [...] MD LAB - BLOOD ORDERABL ES LABORATORY [facility] Acute Care Lab [address] Lab (1st floor, no room number) [place] [address], [facility] * INR (05/24/2024 6:09 AM CDT) INR 1.14 0.85 - 1.15 05/24/2024 6:27 AM CDT LABORATORY Blood STRUCTURE OF LEFT HAND / Unknown Venipuncture / Unknown 05/24/2024 6:09 AM CDT 05/24/2024 6:14 AM CDT Lizandro Barron MD LAB - BLOOD ORDERABL ES [facility] Care Lab [address] Lab (1st floor, no room number) [place] [phone] * (ABNORMAL) Glucose by meter (05/24/2024 4:49 AM CDT) GLUCOSE BY METER POCT 119(H) 70 - 99 mg/dL 05/24/2024 4:56 AM CDT LABORATORY POC Blood, Capillary BLOOD SPECIMEN / Unknown 05/24/2024 4:49 AM CDT 05/24/2024 4:56 AM CDT Antonino DEAN - BEAKER POCT Performing Organization Address [facility]/ZIP Co de Phone Number LABORATORY [facility] Lab [address] Lab (1st floor, no room number) [place] [phone] * (ABNORMAL) Glucose by meter (05/24/2024 1:13 AM CDT) GLUCOSE BY METER POCT 100(H) 70 - 99 mg/dL 05/24/2024 1:20 AM CDT LABORATORY POC Blood, Capillary BLOOD SPECIMEN / Unknown 05/24/2024 1:13 AM CDT 05/24/2024 1:20 AM CDT Antonino Cheek MD LAB - BEAKER POCT LABORATORY [facility] [address] Lab (1st floor, no room number) [address] * INR (05/23/2024 10:19 PM CDT) INR 1.04 0.85 - 1.15 05/23/2024 10:43 PM CDT LABORATORY Blood STRUCTURE OF LEFT UPPER LIMB / Unknown Venipuncture / Unknown 05/23/2024 10:19 PM CDT 05/23/2024 10:26 PM CDT Lizandro Barron MD LAB - BLOOD ORDERABL ES LABORATORY [facility] Lab [address] Lab (1st floor, no room number) [address] * Glucose by meter (05/23/2024 9:58 PM CDT) GLUCOSE BY METER POCT 83 70 - 99 mg/dL 05/23/2024 10:04 PM CDT LABORATORY POC Blood, Capillary BLOOD SPECIMEN / Unknown 05/23/2024 9:58 PM CDT 05/23/2024 10:04 PM CDT Antonino DEAN - BEXIANG POCT Performing Organization Address City/[facility]/ZIP Co de Phone Number LABORATORY POC [facility] Care Lab [address] Lab (1st floor, no room number) [address] * (ABNORMAL) Glucose by meter (05/23/2024 9:06 PM CDT) GLUCOSE BY METER POCT 47(LL) 70 - 99 mg/dL 05/23/2024 9:13 PM CDT LABORATORY POC Comment:Dr/RN Notified Blood, Capillary BLOOD SPECIMEN / Unknown 05/23/2024 9:06 PM CDT 05/23/2024 9:13 PM CDT Antonino DEAN - BEXIANG POCT LABORATORY [facility] Lab [address] Lab (1st floor, no room number) [place] [phone] [place] [address] * Glucose by meter (05/23/2024 8:41 PM CDT) GLUCOSE BY METER POCT 78 70 - 99 mg/dL 05/23/2024 8:48 PM CDT LABORATORY POC Blood, Capillary BLOOD SPECIMEN / Unknown 05/23/2024 8:41 PM CDT 05/23/2024 8:48 PM CDT Antonino Cheek MD LAB - BEAKER POCT LABORATORY [facility] [address] Lab (1st floor, no room number) [place] [phone] * (ABNORMAL) Glucose by meter (05/23/2024 7:55 PM CDT) GLUCOSE BY METER POCT 67(L) 70 - 99 mg/dL 05/23/2024 8:02 PM CDT LABORATORY POC Blood, Capillary BLOOD SPECIMEN / Unknown 05/23/2024 7:55 PM CDT 05/23/2024 8:02 PM CDT Antonino Cheek MD LAB - BEAKER POCT LABORATORY [facility] [address] Lab (1st floor, no room number) [place] [phone] [place] [address] * (ABNORMAL) Tissue Aerobic Bacterial Culture Routine [...] - MICRO GENERAL ORDERABLES [facility] IDD LABORATORY [facility] Inf. Diseases Diag. Lab [address] [facility], Room [place] [phone] * (ABNORMAL) Gram Stain (05/23/2024 [...] - MICRO GENERAL ORDERABLES [facility] LABORATORY [facility] Inf. Diseases Diag. Lab [address] [facility], Room [place] [phone] * Anaerobic Bacterial Culture Routine (05/23/2024 6:42 PM CDT) Culture 4+ Mixed Aerobic and Anaerobic dev JOJO 05/25/2024 2:01 PM CDT [facility] ID[facility] LABORATORY Comment:No predominant organ ism Tissue SCROTAL STRUCTURE / Unknown Non-blood Collection / Unknown 05/23/2024 6:42 PM CDT 05/23/2024 6:46 PM CDT Lizandro Barron MD LAB - MICRO GENERAL ORDERABLES [facility] LABORATORY [facility] Inf. Diseases Diag. Lab [address] [facility], Room [place] [phone] * Glucose by meter (05/23/2024 5:41 PM CDT) GLUCOSE BY METER POCT 90 70 - 99 mg/dL 05/23/2024 5:49 PM CDT RH LABORATORY POC Blood, Capillary BLOOD SPECIMEN / Unknown 05/23/2024 5:41 PM CDT 05/23/2024 5:49 PM CDT Vi Coe DO LAB - BEAKER POC T RH LABORATORY POC [facility] Acute Care Lab [address] Lab (1st floor, no room number) [place] [address] * EKG 12-lead, tracing only (05/23/2024 5:08 PM CDT) Systolic Blood Pressure mmHg RADIOLOGY RESULTS Diastolic Blood Pressure mmHg RADIOLOGY RESULTS Ventricular Rate 63 BPM RAD IOLOGY RESULTS Atrial Rate 63 BPM RADIOLOG Y RESULTS MA Interval 222 ms RADIOLOG Y RESULTS QRS Duration 102 ms RADIOLO GY RESULTS QT 448 ms RADIOLOGY RESULTS QTc 458 ms RADIOLOGY RESULTS P [place] 54 degrees RADIOLOGY RESULTS R AXIS -5 degrees RADIOLOGY RESULTS T [place] 24 degrees RADIOLOGY RESULTS Interpretation ECG Sinus rhythm with 1st degree A-V block Septal infarct , age undetermined Abnormal ECG When compared with ECG of 02-Mar-2024 14:00, Septal infarct is now Present No significant change was found Confirmed by - EMERGENCY ROOM, PHYSICIAN ([id number]), field map editor LIZANDRO ZABALA ([id number]) on 05/24/2024 6:44:53 AM RADIOLOGY RESULTS 05/23/2024 5:08 PM CDT 05/24/2024 6:44 AM CDT Pan Michelle MD ECG ORDERABLES RADIOLOGY RESULTS * (ABNORMAL) INR (05/23/2024 3:42 PM CDT) INR 1.29(H) 0.85 - 1.15 05/23/2024 4:21 PM CDT RH LABORATORY Blood BLOOD SPECIMEN / Unknown Venipuncture / Unknown 05/23/2024 3:42 PM CDT 05/23/2024 3:45 PM CDT Vi Coe DO LAB - BLOOD ORDE MYRANDA [facility] Acute Care Lab [address] Lab (1st floor, no room number) [place] [address], [facility] * CT Abdomen Pelvis w Contrast [...] 2:35 PM. MIKE LIPSCOMB MD SYSTEM ID: [id number] Narrative 05/23/2024 2:[address] ABDOMEN [...] veins which are not included in the [id number]. MUSCULOSKELETAL: Stable degenerative changes at L4-L5 with [...] veins which are not included in the [id number]. 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 No destructive lesions in the bones. IMPRESSION: 1. 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 2. Other chronic findings as discussed above. Findings were discussed with Dr. Kenna Coe at 2:35 PM. MIKE LIPSCOMB MD SYSTEM ID: [id number] Vi Coe DO G CT ORDERABLE S * Adult Type and Screen (05/23/2024 2:07 PM CDT) ABO/RH(D) O POS 05/23/2024 1:37 PM CDT RH BLOOD BANK Antibody Screen Negative Negative 05/23/2024 1:37 PM CDT RH BLOOD BANK SPECIMEN EXPIRATION DATE [id number] 05/23/2024 1:37 PM CDT RH BLOOD BANK Blood BLOOD SPECIMEN / Unknown Venipuncture / Unknown 05/23/2024 2:07 PM CDT 05/23/2024 2:10 PM CDT Vi Coe DO LAB - BLOOD BANK TEST ORDER RH BLOOD BANK [address] [place] [address], [facility] * (ABNORMAL) CBC with platelets and [...] Coe DO LAB - BLOOD ORDE MYRANDA [facility] Organization Address City/State/ZIP Co de Phone Number RH LABORATORY [facility] Acute Care Lab [address] Lab (1st floor, no room number) [place] [address], [facility] * Lactic acid whole blood (05/23/2024 1:50 PM CDT) Lactic Acid 0.9 0.7 - 2.0 mmol/L 05/23/2024 1:57 PM CDT RH LABORATORY Blood BLOOD SPECIMEN / Unknown Venipuncture / Unknown 05/23/2024 1:50 PM CDT 05/23/2024 1:54 PM CDT Vi Coe DO LAB - BLOOD ORDE RABLES RH LABORATORY [facility] Acute Care Lab [address] Lab (1st floor, no room number) [place] [address], [facility] * Blood Culture Peripheral Blood (05/23/2024 1:50 PM CDT) Culture No Growth 05/28/2024 4:06 PM CDT [facility]U IDD LABORATORY Blood BLOOD SPECIMEN / Unknown Venipuncture / Unknown 05/23/2024 1:50 PM CDT 05/23/2024 1:53 PM CDT Vi Coe DO LAB - MICRO GENE RAL ORDERABLES [facility] IDD LABORATORY [facility] Inf. Diseases Diag. Lab [address] [facility], [address] [place] [address], [facility] * (ABNORMAL) Comprehensive metabolic panel (05/23/2024 1:50 [...] LAB - BLOOD AMAIRANIE MYRANDA RH LABORATORY [facility] Acute Care Lab [address] [facility] Lab (1st floor, no room number) [place] [address], [facility] * (ABNORMAL) INR (05/23/2024 1:50 PM CDT) INR >10.00(HH) 0.85 - 1.15 05/23/2024 2:30 PM CDT RH LABORATORY Blood BLOOD SPECIMEN / Unknown Venipuncture / Unknown 05/23/2024 1:50 PM CDT 05/23/2024 1:55 PM CDT Vi Coe DO LAB - BLOOD ROVERTO WHITMORE [facility] Acute Care Lab [address] Lab (1st floor, no room number) [place] [address], [facility] documented in this encounter Visit Diagnoses [...] RUN Dialysis, Dialysis 0948 ($Given - Provider: iCntia Valadez RN) heparin (porcine) injection (COMPLETED) 500 [...] stools. documented in this encounter Care Teams Files Supervisor Relationship Specialty Start Date End Date Cornell Butt PCP - General 06/24/11 documented as of this encounter
--- OUTSIDE RECORDS SUMMARY | 2024-07-19 10:14 | XMS_ITS | Encounter Summary ---
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
--- OUTSIDE RECORDS SUMMARY | 2024-07-19 10:14 | XMS_ITS | Encounter Summary ---
Author Organization [place] Address [address] [place] [address] Care Team Providers Care Assembly Inspector Helper Name Role Phone Preet Huff Primary Care Provider Jaxon Saravia MD Unavailable [phone] Encounter Details Date Type Department Care Team (Late st Contact Info) Description 05/07/2013 Orders Only [facility] Interventional Radiology [address] [place] [phone] Layla Garcia RN Clotted dialysis access (H) (Primary Dx) Social History Tobacco Use Types Packs/Day Years Used Date Smoking Tobacco: Never Smokeless Tobacco: Never Alcohol Use Standard Drinks/Week Comments No 0 (1 standard drink = 0.6 oz pur e alcohol) Sex and Gender Information Value Date Recorded Sex Assigned at Not on file Gender Identity Male 12/05/2017 10:39 AM HOME COORDINATOR Sexual Orientation Not on file documented as of this encounter Plan of Treatment Not on file documented as of this encounter Visit Diagnoses Diagnosis Clotted dialysis access (H)- Primary Mechanical complication of other vascular device, implant, and graft documented in this encounter Care Teams Assembly Inspector Helper Relationship Specialty Start Date End Date Preet Huff PCP - General 06/24/11 Jaxon Saravia MD [address] [place] [address] Assigned Heart and Vascular Provider 08/01/20 2 documented as of this encounter
--- OUTSIDE RECORDS SUMMARY | 2024-07-19 10:14 | XMS_ITS | Encounter Summary ---
Author Organization [place] Address [address] [facility] [address] Care Team Providers Care Helmet Hat Puncher Name Role Phone RefugioPreet Primary Care Provider [phone] Encounter Details Date Type Department Care Team (Late st Contact Info) Description 02/08/2022 External Order Results [facility] [address] [place] [address] Outside, Provider Social History Tobacco Use Types Packs/Day Years Used Date Smoking Tobacco: Never Smokeless Tobacco: Never Alcohol Use Standard Drinks/Week Comments No 0 (1 standard drink = 0.6 oz pur e alcohol) PHQ-2 Answer Date Recorded PHQ-2 Score 0 10/18/2018 Sex and Gender Information Value Date Recorded Sex Assigned at Not on file Gender Identity Male 12/05/2017 10:39 AM FIRST DYER Sexual Orientation Not on file COVID-19 Exposure [...] on filedocumented in this encounter Care Teams Helmet Hat Puncher Relationship Specialty Start Date End Date Preet Huff PCP - General 06/24/11 documented as of this encounter
--- OUTSIDE RECORDS SUMMARY | 2024-07-19 10:15 | XMS_ITS ---
Author Organization [place] Address [address] [place] [address] Care Team Providers Care Club Waiter/Waitress Name Role Phone Preet Huff Primary Care Provider [phone] Transitional Care Management Status:Closed (Closed) Start date:05/31/2024 Enrollment date:06/01/2024 End date:06/14/2024 Close reason:Goals met Continued Care and Services Coordination
--- OUTSIDE RECORDS SUMMARY | 2024-07-19 10:15 | XMS_ITS | Encounter Summary ---
Author Organization [place] Address [address] [facility] [place] [address] Care Team Providers Care Gas Fitter Helper Name Role Phone Preet Huff Primary Care Provider [phone] Jaxon Saravia MD Unavailable [phone] Encounter Details Date Type Department Care Team (Late st Contact Info) Description 10/20/2011 Hospital PHYS STANDARD [address] [place] [phone] Wojciech Holman MD [facility] [address] [place] [id number] ESRD (end stage renal disease) on dialysis (H); Hyperkalemia Social History Tobacco Use Types Packs/Day Years Used Date Smoking Tobacco: Never Smokeless Tobacco: Never Alcohol Use Standard Drinks/Week Comments No 0 (1 standard drink = 0.6 oz pur e alcohol) Sex and Gender Information Value Date Recorded Sex Assigned at Not on file Gender Identity Male 12/05/2017 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
--- OUTSIDE RECORDS SUMMARY | 2024-07-19 10:15 | XMS_ITS | Encounter Summary ---
Author Organization [place] Address [address] [facility] [place] [address] Care Team Providers Care Promotions Associate Name Role Phone Preet Huff Primary Care Provider [phone] Jaxon Saravia MD Unavailable [phone] Encounter Details Date Type Department Care Team (Late st Contact Info) Description 05/07/2013 Orders Only [facility] Interventional Radiology [address] [place] [phone] Layla Garcia RN Social History Tobacco Use Types Packs/Day Years Used Date Smoking Tobacco: Never Smokeless Tobacco: Never Alcohol Use Standard Drinks/Week Comments No 0 (1 standard drink = 0.6 oz pur e alcohol) Sex and Gender Information Value Date Recorded Sex Assigned at Not on file Gender Identity Male 12/05/2017 10:39 AM TUBE REPAIRER Sexual Orientation Not on file documented as of this encounter Plan of Treatment Not on file documented as of this encounter Visit Diagnoses Not on filedocumented in this encounter Care Teams Promotions Associate Relationship Specialty Start Date End Date Preet Huff PCP - General 06/24/11 Jaxon Saravia MD [address] [address] Assigned Heart and Vascular Provider 08/01/20 12/06/20 documented as of this encounter
--- OUTSIDE RECORDS SUMMARY | 2024-07-19 10:15 | XMS_ITS | Encounter Summary ---
Author Organization [place] Address [address] [facility] [place] [address] Care Team Providers Care Sales Department Supervisor Name Role Phone Preet Huff Primary Care Provider Jaxon Saravia MD Unavailable [phone] Encounter Details Date Type Department Care Team (Late st Contact Info) Description 12/21/2012 Orders Only [facility] Interventional Radiology [address] [place] [phone] Layla Garcia RN Social History Tobacco Use Types Packs/Day Years Used Date Smoking Tobacco: Never Smokeless Tobacco: Never Alcohol Use Standard Drinks/Week Comments No 0 (1 standard drink = 0.6 oz pur e alcohol) Sex and Gender Information Value Date Recorded Sex Assigned at Not on file Gender Identity Male 12/05/2017 10:39 AM TUBE BUFFER Sexual Orientation Not on file documented as of this encounter Plan of Treatment Not on file documented as of this encounter Visit Diagnoses Not on filedocumented in this encounter Care Teams Sales Department Supervisor Relationship Specialty Start Date End Date Preet Huff PCP - General 06/24/11 Jaxon Saravia MD [address] [place] [address] Assigned Heart and Vascular Provider 08/01/20 12/06/20 documented as of this encounter
== END 2024-07-19 10:06 | disposition home or self-care (01) ==
LOC: WOUND 10:05
PROVIDERS: PCP Internal Medicine Nephrology; Visit Provider Nurse Practitioner Family
DX: N49.3 Fournier gangrene (principal); N50.89 Other specified disorders of the male genital organs; E11.22 Type 2 diabetes mellitus with diabetic chronic kidney disease; N18.6 End stage renal disease; Z99.2 Dependence on renal dialysis
CPT/HCPCS: 11042

== ENCOUNTER 2024-07-26 09:56 | Outpatient (CLI) | payer MEDICARE, MEDICAID, SELFPAY ==
--- OUTSIDE RECORDS SUMMARY | 2024-07-26 09:59 | XMS_ITS | Encounter Summary ---
Author Organization [facility] Address [address] [place] [address] Phone Care Team Providers Care English Lecturer Name Role Phone Preet Huff MD Primary Care Provider [phone] Reason for Visit * Reason Comments Med Refill Encounter Details Date Type Department Care Team (Late st Contact Info) Description 02/12/2021 Refill [facility] [address] [facility] [address] [place], [place] [address] María Elena Styles PA [address] [place] [address] Social History Tobacco Use Types Packs/Day Years Used Date Smoking Tobacco: Never Assessed Sex and Gender Information Value Date Recorded Sex Assigned at Not on file Gender Identity Not on file Sexual Orientation Not on file documented as of this encounter Plan of Treatment Not on file documented as of this encounter Visit Diagnoses Not on filedocumented in this encounter Care Teams English Lecturer Relationship Specialty Start Date End Date Preet Huff MD [address] [place] [phone] PCP - General 10/31/19 documented as of this encounter
--- OUTSIDE RECORDS SUMMARY | 2024-07-26 09:59 | XMS_ITS | Clinical Summary ---
Author Organization [facility] Address [address] [place] [address] Phone Care Team Providers Care Network Project Manager Name Role Phone Preet Huff MD Primary Care Provider [phone] Medications Medication Sig Dispensed Refills Start Date End Date Status cholecalciferol (VITAMIN D-3) 1000 units tablet 1 tab qd 04/02/2015 Active B Complex Vitamins (VITAMIN B COMPLEX) tablet 1 tab po daily 12/08/2012 Act bill bisacodyl (DULCOLAX) 5 MG EC tablet 2 tabs po bid 04/02/2015 Active B Iicujif-N-Pjxvi Acid (RENAL) 1 MG capsule 1 cap [...] 1982 Influenza Vaccine (#1) 2024 Care Teams Network Project Manager Relationship Specialty Start Date End Date Preet Huff MD [address] [place] [address] PCP - General 10/31/19
--- OUTSIDE RECORDS SUMMARY | 2024-07-26 09:59 | XMS_ITS | Encounter Summary ---
Author Organization [facility] Address [address] [place] [phone] Phone Care Team Providers Care Transformer Molder Name Role Phone Preet Huff MD Primary Care Provider [phone] Reason for Visit * Reason Comments Med Refill Encounter Details Date Type Department Care Team (Late st Contact Info) Description 03/23/2021 Refill [facility] [address] [facility] [address] [place], [place] [address] María Elena Styles PA [address] [facility] [address] [facility] [address] [place] [address] Social History Tobacco Use Types Packs/Day Years [...] on filedocumented in this encounter Care Teams Transformer Molder Relationship Specialty Start Date End Date Preet Huff MD [address] [place] [phone] PCP - General 10/31/19 documented as of this encounter
--- OUTSIDE RECORDS SUMMARY | 2024-07-26 10:00 | XMS_ITS | Clinical Summary ---
Author Organization [place] Address [facility] [place] [address] Care Team Providers Care Manager Dialysis Name Role Phone Preet Huff Primary Care Provider [phone] Allergies Active Allergy Reactions Criticality Noted Date [...] mg by mouth every evening Active B Gqppetm-B-Seaku Acid (WESCAPS PO) Take 1 capsule by [...] CDT - 07/12/2024 7:[address] [facility] Emergency Dept [address] [place] [address] Avery Fernando MD Richardson, Elizabeth, MD Transient hypotension; ESRD (end stage renal disease) on dialysis (H); Supratherapeutic INR Discharge Disposition: Home or Self Care 07/12/2024 Travel 05/23/2024 6:02 PM CDT Anesthesia Event [facility] [address] [place] [address] Tom Castro MD Larson, Matthew Ray, MD 05/23/2024 6:00 PM CDT - 05/23/2024 7:[address] [facility] [address] [place] [address] Lizandro Barron MD Incision and drainage, debridement of scrotal skin and subcutaneous tissues for necrotizing soft tissue infection of the scrotum 05/23/2024 1:14 PM CDT - 05/30/2024 5:21 PM CDT Hospital Encounter [place] [address] [facility] [address] [place] [address] Vi Hernandez DO Cabrera, Jesus [...] an abandoned building, in an overnight senior living, or couch-surfing.) Patient unable to answer 05/30/2024 [...] file Gender Identity Male 12/05/2017 10:39 AM GRAPHICS EDITOR Sexual Orientation Not on file Last Filed [...] this topic Medical Devices Implanted Type Area Grounds Worker Device Identifier Shelf Expiration Date Model / Serial / Lot Graft Patch Vasc Xenosure Biologic 0.8x08cm 0.8p8 Implanted:Qty: 1 on 12/16/2017 by Jaxon Saravia MD at [facility] Bone/Tis rocco/Biol ogic Left: Iliac/Fem orals [employer] IN 06/06/2023 0.8P8 / / [id number] Graft Pericardium 8x0.8cm Vascu-Guard Implanted:Qty: 1 on 10/20/2011 at [facility] Right: Arm [employer] 01/16/2016 [id number] / / [id number] Femoral Popliteal Artery Implanted:Qty: 1 on 05/03/2012 by Jaxon Saravia MD at [facility] Right: Groin 12/07/2021 [id number] / [id number] / Description:CADAVER FEMORAL ARTERY RINSED IN A AND B SOLUTION: A SOLUTION LOT #[id number] EXPIRATION DATE 01/09/2014 B SOLUTION LOT #[id number] EXPIRATION DATE 11/15/2013 Graft Propaten Taper 4-5ndn97nj [id number] Implanted:Qty: 1 on 08/09/2012 by Jaxon Saravia MD at [facility] Right: Leg 10/24/2015 [id number] / / [id number] Graft Propaten Taper 4-5uuo92wx [id number] Implanted:Qty: 1 on 06/20/2013 by Jaxon Saravia MD at [facility] Left: Groin [employer] 02/07/2017 [id number] / / [id number] Graft Pericardium 8x0.8cm Vascu-Guard Implanted:Qty: 1 on 05/08/2014 by Jaxon Saravia MD at [facility] Left: Leg [employer] 11/26/2018 [id number] / PN# [id number] / [id number] Procol Vascular Bioprosthesis Implanted:Qty: 1 on 07/02/2015 by Jaxon Saravia MD at [facility] Left: Groin 12/16/2018 [id number] -N / [id number] / Procol Vascular Bioprosthesis Implanted:Qty: 1 on 08/13/2015 by Jaxon Saravia MD at [facility] Left: Groin 12/16/2018 [id number] -N / [id number] / Graft Vasc Bioprosthesis Procol [id number] Implanted:Qty: 1 on 03/05/2016 by Jaxon Saravia MD at [facility] Left: Leg [employer] IN 02/03/2019 [id number] -[id number] / [id number] / Procedures Procedure [...] CDT LIPID PROFILE STAT 12/07/2017 12:34 PM GRAPHICS EDITOR Atherosclerosis of [place] artery of left lower extremity with [...] Fernando MD LAB - BLOOD ORDERABL ES [facility] Lab [address] Lab (1st floor, no room number) [place] [address], [facility] * XR Chest 2 Views (07/12/2024 3:15 AM CDT) Anatomical Region Laterality Modality Chest Digital Radiogra phy 07/12/2024 3:15 AM CDT Impressions 07/12/2024 3:18 AM CDT IMPRESSION: Low lung volumes but the lungs appear clear. Normal heart size and pulmonary vascularity. No pleural fluid or pneumothorax. Narrative 07/12/2024 3:18 AM CDT EXAM: XR CHEST 2 VIEWS [address]ATION: [facility] DATE: 07/12/2024 INDICATION: ams COMPARISON: 03/11/2024. Procedure Note Pavan Sanon MD - 07/12/2024 EXAM: XR CHEST 2 VIEWS LOCATION: 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 NECK CTA: 1. ??Normal configuration [...] CTA HEAD NECK W CONTRAST LOCATION: [facility] DATE: 07/12/2024 INDICATION: ams and [...] CTA HEAD NECK W CONTRAST LOCATION: 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 NECK CTA: 1. Normal configuration of [...] 1:49 am on 07/12/2024. 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 NECK CTA: 1. ??Normal configuration [...] CTA HEAD NECK W CONTRAST LOCATION: [facility] DATE: 07/12/2024 INDICATION: ams and [...] CTA HEAD NECK W CONTRAST LOCATION: 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 NECK CTA: 1. Normal configuration of [...] 1:49 am on 07/12/2024. 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 NECK CTA: 1. ??Normal configuration [...] CTA HEAD NECK W CONTRAST LOCATION: [facility] DATE: 07/12/2024 INDICATION: ams and [...] CTA HEAD NECK W CONTRAST LOCATION: 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 NECK CTA: 1. Normal configuration of [...] LAB - BLOOD ORDERABL ES [facility] LABORATORY [facility] Acute Care Lab [address] [facility] Lab (1st floor, no room number) [place] [address] * (ABNORMAL) CBC [...] LAB - BLOOD ORDERABL ES [facility] LABORATORY [facility] Acute Care Lab [address] Lab (1st floor, no room number) [place] [address], [facility] * Adult Type and Screen (07/12/2024 1:14 AM CDT) Only the most recent of2 resultswithin the time period is included. ABO/RH(D) O POS 07/12/2024 1:01 AM CDT RH BLOOD BANK Antibody Screen Negative Negative 07/12/2024 1:01 AM CDT RH BLOOD BANK SPECIMEN EXPIRATION DATE [id number] 07/12/2024 1:01 AM CDT RH BLOOD BANK Blood BLOOD SPECIMEN / Unknown Venipuncture / Unknown 07/12/2024 1:14 AM CDT 07/12/2024 1:23 AM CDT Avery Fernando MD LAB - BLOOD BANK SHANNON T ORDER BLOOD BANK [address] [place] [address] * (ABNORMAL) INR (07/12/2024 1:14 AM CDT) Only the most recent of11 resultswithin the time period is included. INR 4.68(H) 0.85 - 1.15 07/12/2024 1:49 AM CDT RH LABORATORY Blood BLOOD SPECIMEN / Unknown Venipuncture / Unknown 07/12/2024 1:14 AM CDT 07/12/2024 1:23 AM CDT Avery Fernando MD LAB - BLOOD ORDERABL ES LABORATORY [facility] Acute Care Lab [address] [facility] Lab (1st floor, no room number) [place] [address] * Lactic acid whole blood (07/12/2024 1:14 AM CDT) Only the most recent of2 resultswithin the time period is included. Lactic Acid 0.8 0.7 - 2.0 mmol/L 07/12/2024 1:27 AM CDT RH LABORATORY Blood BLOOD SPECIMEN / Unknown Venipuncture / Unknown 07/12/2024 1:14 AM CDT 07/12/2024 1:23 AM CDT Avery Fernando MD LAB - BLOOD ORDERABL ES [facility] Lab [address] Lab (1st floor, no room number) [place] [address] * Hepatic function panel (07/12/2024 1:14 AM [...] Fernando MD LAB - BLOOD ORDERABL ES [facility] Acute Care Lab [address] [facility] Lab (1st floor, no room number) [place] [address] * Blood Culture Peripheral Blood (07/12/2024 1:14 AM CDT) Only the most recent of2 resultswithin the time period is included. Culture No Growth 07/17/2024 4:46 AM CDT [facility] Blood BLOOD SPECIMEN / Unknown Venipuncture / Unknown 07/12/2024 1:14 AM CDT 07/12/2024 1:23 AM CDT Avery Fernando MD LAB - MICRO GENERAL ORDERABLES [facility] Inf. Diseases Diag. Lab [address] [facility], [address] [place] [address], [facility] * (ABNORMAL) Basic metabolic panel [...] City/[facility]/ZIP Co de Phone Number [facility] Lab [address] Lab (1st floor, no room number) [place] [address] * (ABNORMAL) Glucose by meter (07/12/2024 1:13 AM CDT) Only the most recent of41 resultswithin the time period is included. GLUCOSE BY METER POCT 133(H) 70 - 99 mg/dL 07/12/2024 1:20 AM CDT LABORATORY POC Blood, venous BLOOD SPECIMEN / Unknown 07/12/2024 1:13 AM CDT 07/12/2024 1:20 AM CDT Avery Fernando MD LAB - BEAKER POCT Performing Organization Address [facility]/ZIP Co de Phone Number LABORATORY [facility] Acute [facility] Lab [address] Lab (1st floor, no room number) [place] [address], [facility] * EKG 12-lead, tracing only (07/12/2024 12:24 AM CDT) Only the most recent of2 resultswithin the time period is included. Systolic Blood Pressure mmHg RADIOLOGY RESULTS Diastolic Blood Pressure mmHg RADIOLOGY RESULTS Ventricular Rate 65 BPM RAD IOLOGY RESULTS Atrial Rate 65 BPM RADIOLOG Y RESULTS RI Interval 234 ms RADIOLOG Y RESULTS QRS Duration 112 ms RADIOLO GY RESULTS QT 430 ms RADIOLOGY RESULTS QTc 447 ms RADIOLOGY RESULTS P [place] 53 degrees RADIOLOGY RESULTS R AXIS 10 degrees RADIOLOGY RESULTS T [place] 51 degrees RADIOLOGY RESULTS Interpretation ECG Sinus rhythm with 1st degree A-V block Otherwise normal ECG When compared with ECG of 23-May-2024 17:08, Criteria for Septal infarct are no longer Present Unconfirmed report - interpretation of this ECG is computer generated - see medical record for final interpretation Confirmed by - EMERGENCY ROOM, PHYSICIAN ([id number]), editor dictionary YISSEL VELASQUEZ ([id number]) on 07/12/2024 6:51:31 AM RADIOLOGY RESULTS 07/12/2024 [...] LAB - BLOOD ORDERABL ES RH LABORATORY [facility] Acute [facility] Lab [address] Lab (1st floor, no room number) [place] [address], [facility] * Extra Green Top Tube [...] City/[facility]/ZIP Co de Phone Number [facility] Lab [address] Lab (1st floor, no room number) [address] * Extra Purple Top EDTA (LAB [...] ORDERABL ES Performing Organization Address [facility] Co de Phone Number [facility] Lab [address] Lab (1st floor, no room number) [place] [id number] [place] [address] * (ABNORMAL) Hemoglobin (05/28/2024 6:07 AM CDT) Hemoglobin 7.7(L) 13.3 - 17.7 g/dL 05/28/2024 9:02 AM CDT RH LABORATORY Blood STRUCTURE OF LEFT HAND / Unknown Venipuncture / Unknown 05/28/2024 6:07 AM CDT 05/28/2024 6:17 AM CDT Dileep Anders MD LAB - BLOOD ORD ERABLES [facility] Lab [address] Lab (1st floor, no room number) [place] [id number] [place] [address] * Vancomycin level (05/25/2024 2:04 PM CDT) Vancomycin 11.9 ug/mL 05/25/2024 3:28 PM CDT LABORATORY Comment: Traditional Dosing Therapeutic Range: Trough 10-15 ug/mL Peak 20-40 ug/mL Critical: Greater than 25.0 ug/mL Blood STRUCTURE OF RIGHT UPPER LIMB / Unknown Venipuncture / Unknown 05/25/2024 2:04 PM CDT 05/25/2024 2:07 PM CDT Antonino Cheek MD LAB - BLOOD ORDERABL ES Performing Organization Address [facility] Co de Phone Number [facility] Lab [address] Lab (1st floor, no room number) [place] [id number] [place] [address] * Hepatitis B Surface Antibody (05/25/2024 9:25 [...] City/[facility]/ZIP Co de Phone Number [facility] [place] [facility] Lab [address] [facility], [address] [phone] * Hepatitis B surface antigen (05/25/2024 9:25 AM CDT) [facility] Hepatitis B Surface Antigen Nonreactive Nonreactive 05/25/2024 2:23 PM CDT [facility] Blood BLOOD SPECIMEN / Unknown Venipuncture / Unknown 05/25/2024 9:25 AM CDT 05/25/2024 10:13 AM CDT Jose Enrique Naylor MD LAB - BLOOD ORDERABL ES U LABORATORY [facility] [place] [facility] Lab [address] [facility], [address] * (ABNORMAL) Comprehensive metabolic panel (05/24/2024 6:09 AM CDT) Only the most recent of2 resultswithin the time period is included. [facility] Sodium 131(L) 135 - 145 mmol/L 05/24/2024 [...] MD LAB - BLOOD ORDERABL ES LABORATORY [facility] Acute Care Lab [address] [facility] Lab (1st floor, no room number) [place] [address] * (ABNORMAL) Tissue Aerobic Bacterial Culture [...] - MICRO GENERAL ORDERABLES [facility] Inf. Diseases Diag. Lab [address] [facility], [address] [place] [address] * (ABNORMAL) Gram Stain (05/23/2024 6:42 [...] - MICRO GENERAL ORDERABLES [facility] Inf. Diseases Diag. Lab [address] [facility], [address] * Anaerobic Bacterial Culture Routine (05/23/2024 6:42 PM CDT) Culture 4+ Mixed Aerobic and Anaerobic dev JOJO 05/25/2024 2:01 PM CDT [facility] Comment:No predominant organ ism Tissue SCROTAL STRUCTURE / Unknown Non-blood Collection / Unknown 05/23/2024 6:42 PM CDT 05/23/2024 6:46 PM CDT Lizandro Barron MD LAB - MICRO GENERAL ORDERABLES [facility] Inf. Diseases Diag. Lab [address] [facility], [address] * ANE AIRWAY ETT PERFORMABLE (05/23/2024 6:21 PM CDT) Narrative Donnell Ramos APRN LOAD OUT WORKER - 05/23/2024 6:21 PM CDT Donnell Ramos APRN LOAD OUT WORKER ? 05/23/2024 ??6:33 PM Airway ? Patient location during procedure: OR ? Procedure Start/Stop Times: 05/23/2024 6:21 PM Staff - ? LOAD OUT WORKER: Yasemin Almaguer APRN LOAD OUT WORKER ? Performed By: CRNAIndications and Patient Condition [...] Time: 05/23/2024 6:21 PM Tom Castro MD [place] [facility]ES[facility] * CT Abdomen Pelvis w Contrast [...] 2:35 PM. MIKE SANTANA MD SYSTEM ID: ??[id number] Narrative 05/23/2024 2:[address] ABDOMEN [...] veins which are not included in the sgenm-pm-csfq. MUSCULOSKELETAL: Stable degenerative changes at L4-L5 with [...] veins which are not included in the ausqd-ed-jqhy. 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 No destructive lesions in the bones. IMPRESSION: 1. 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 2. Other chronic findings as discussed above. Findings were discussed with Dr. Kenna Coe at 2:35 PM. MIKE SANTANA MD SYSTEM ID: [id number] Vi Coe DO IMG CT ORDERABLE S * (ABNORMAL) Renal panel (03/12/2024 6:06 AM CDT) [facility] Signature Sodium 123(L) 135 - 145 [...] CDT Eileen Earl MD LAB - BLOOD [facility] Organization Address City/State/ZIP Co de Phone Number LABORATORY [facility] Acute Care Lab [address] [facility] Lab (1st floor, no room number) [place] [address] * COLONOSCOPY (03/08/2024 1:04 PM CDT) COLONOSCOPY [facility] Patient Name: Herminio Victor ? Procedure [...] continuously. The ?Olympus Adult Colonoscope, Model # [id number], ?Censitrac # [id number] was introduced through the ?anus and advanced [...] Note Initiated On: 03/08/2024 1:04 PM MRN: ?[id number] Procedure Date: ? 03/08/2024 1:04:50 PM Scope Withdrawal Time: 0 hours 11 minutes 55 seconds Total Procedure Duration: 0 hours 17 minutes 23 seconds Estimated Blood Loss: ? Scope In: 1:12:27 PM Scope Out: 1:29:50 PM RADIOLOGY RESULTS 03/08/2024 1:04 PM CDT Eileen Earl MD PROCEDURES Performing Organization Address [facility] Co de Phone Number RADIOLOGY RESULTS * (ABNORMAL) Occult blood stool (02/24/2024 11:31 AM CDT) Occult Blood Positive(A ) Negative JOJO 02/24/2024 11:40 AM CDT LABORATORY Stool RECTAL CONTENTS / Unknown Non-blood Collection / Unknown 02/24/2024 11:31 AM CDT 02/24/2024 11:38 AM CDT Jae Noel MD LAB - STOOLS ORDERAB LES Performing Organization Address [facility] Co de Phone Number RH LABORATORY [facility] Acute Care Lab [address] Lab (1st floor, no room number) [place] [address], [facility] * Hepatitis C (HIM External Result) (01/04/2022 12:00 PM CDT) Hep C HIM See Scanned Document EXTERNAL LAB Comment:Nonreactive 01/04/2022 12:0 0 PM CDT Narrative EXTERNAL LAB - 01/04/2022 12:00 PM CDT LAB RESULT [facility] [address] [place] [address] Provider Outside LAB - HIM EXTERNAL R ESULT Performing Organization Address [facility] Co de Phone Number EXTERNAL LAB External Lab * (ABNORMAL) Lipid panel (12/07/2017 12:34 PM GRAPHICS EDITOR) Cholesterol 115 <200 mg/dL 12/07/2017 1:[address] [facility] Triglycerides 84 <150 mg/dL 12/07/2017 1:[address] [facility] HDL Cholesterol 37(L) >39 mg/dL 8 1:[address] [facility] LDL Cholesterol Calculated 61 <100 mg/dL 12/07/2017 1:[address] [facility] Comment:Desirable: <100 mg/d l Non HDL Cholesterol 78 <130 mg/dL 12/07/2017 1:[address] [facility] Blood specimen (specimen) 12/07/2017 12:34 PM GRAPHICS EDITOR 12/07/2017 12:58 PM GRAPHICS EDITOR Michele Fuentes MD LAB - BLOOD ORD ERABLES [facility] [address] [place] [address] [phone] from Last 3 Months or Most Recently Relevant to Health Maintenance Advance Directives For more information, please contact: [phone] * Full Code (Latest Code Status on [...] 12:25 PM 01/25/2019 11:45 AM Care Teams Manager Dialysis Relationship Specialty Start Date End Date Preet Huff PCP - General 06/24/11
--- OUTSIDE RECORDS SUMMARY | 2024-07-26 10:00 | XMS_ITS | Clinical Summary ---
Author Organization [employer] [facility] Address [place], [place] [address] Care Team Providers Care Toxicology Teacher Name Role Phone Preet Huff MD Primary [...] DVT of upper extremity (deep vein thrombosis) [facility]CI (current) use of anticoagulants 2010 Secondary hyperparathyroidism [...] Encounters Date Type Department Care Team Description 07/24/2024 Telephone [facility] [address] [place] [address] Preet Huff MD DME Supply (Walker); [place] 06/28/2024 Orders Only [facility] HIM SERVICES Scanner 1 scan: (1-Ord) [facility], WOUND DEBRIDEMENT ANTERIOR SCROTUM, 06/28/2024 06/13/2024 Telephone [facility] [address] [place] [address] [address] Preet Huff MD Follow Up (NO OPENINGS AT WOUND CLINIC) 06/07/2024 2:30 PM CDT Office Visit [facility] [address] [place] [address] [address] Lizandro Singh MD Sleep Follow-up 06/07/2024 2:05 PM CDT Office Visit [facility] [address] [place] [address] Preet Huff MD Hospital F/U (05/30 [facility] -groin infection) 06/07/2024 Travel 05/21/2024 Nurse Triage [facility] [address] [place] [address] Preet Huff MD Testicle Pain from Last 3 Months Immunizations Name Administration Dates Next Due COVID-19 vaccine (Moderna 100mcg/0.5mL) PF, MDV 11/28/2020,10/31/2020 COVID-19 vaccine (Pfizer-Bio NTech 30mcg/0.3mL) 12YO+ BIVALENT PF, MDV 06/23/2022 Hepatitis B (Adult) 09/06/2022, 4,09/25/2013,04/24,03/23/2011,01/28/2011,12/26/2010 ,11/12/2010,07/14/2010,03/11/2010,0502/2010,01/12/2010,10/21/2009 11/21/2009 Influenza A (H1N1), Inactiva suzan (Age [...] Completed 10/21/2009 Medical Devices Implanted Type Area Cruller Maker Machine Device Identifier Shelf Expiration Date Model / Serial / Lot Cath Peritoneal Cvd 62cm - [id number] Implanted:Qty: 1 on 10/31/2009 at [facility] N/A: Abdomen STIVEN 05/10/2014 [id number] 10 # / / [id number] Procedures Procedure Name Priority Date/Time Associated Diagnosis Comments SCAN-OPERATIVE/PROC EDURE REPORT 06/28/2024 12:00 AM CDT LIPID PANEL W REFLEX MEASURED LDL Routine 11/08/2023 3:05 PM TRIMMING CASER Mixed hyperlipidemia COLONOSCOPY SCREENING Routine 09/24/2013 12:00 AM TRIMMING CASER Colon cancer screening ANTI HIV 1/2 Timed 03/04/2009 10:05 AM CDT Pre-Transplant Evaluation for End Stage Renal Disease ANTI HCV Timed 03/04/2009 10:05 AM CDT Pre-Transplant Evaluation for End Stage Renal Disease from Last 3 Months or Most Recently Relevant to Health Maintenance Results * SCAN-OPERATIVE/PROCEDURE REPORT (06/28/2024 12:00 AM CDT) Scanner OTHER * (ABNORMAL) LIPID PANEL W REFLEX MEASURED LDL (11/08/2023 3:05 PM TRIMMING CASER) CHOLESTEROL,TOTAL 90(L) 100 - 199 mg/dL 11/09/2023 10:41 AM [facility] TRAL LABORATORY Comment: Cholesterol, Total Reference Ranges Desirable <200 mg/dL Borderline 200-239 mg/dL High >=240 mg/dL TRIGLYCERIDES 104 <150 mg/dL 11/09/2023 10:41 AM TRIMMING CASER [facility] TRAL [facility]OR[facility] HDL CHOLESTEROL 30(L) >40 mg/dL 10:41 AM TRIMMING CASER [facility] TRAL LAB[facility] NON-HDL CHOLESTEROL 60 <145 mg/dl 11/09/2023 10:41 AM [facility] TRAL LABORATORY CHOL/HDL RATIO 3.00 <4.50 11/09/2023 10:41 AM TRIMMING CASER [facility] TRAL LABORAT[facility] LDL CHOLESTEROL 39 <=130 mg/dL 11/09/2023 10:41 AM [facility] VLDL CHOLESTEROL 21 <=30 mg/dL 11/09/2023 10:41 AM [facility] TRAL LABORAT[facility] PROVIDER ORDERED STATUS RANDOM 11/09/2023 10:41 AM [facility] Blood BLOOD SPECIMEN / Unknown Butterfly / Unknown 11/08/2023 3:05 PM TRIMMING CASER 11/08/2023 3:08 PM TRIMMING CASER Preet Huff MD CHEMISTRY [facility] [address] [place] [id number], * COLONOSCOPY SCREENING (09/24/2013 12:00 AM TRIMMING CASER) Narrative 09/24/2013 12:00 AM TRIMMING CASER Procedure Note Scanner - 09/24/2013 12:00 AM CST Preet Huff MD GI PROCEDURE O RD * ANTI HCV (03/04/2009 10:05 AM CDT) ANTI HCV Non-reacti ve [facility] Blood specimen (specimen) BLOOD SPECIMEN / Unknown 03/04/2009 10:05 AM CDT 03/04/2009 9:57 AM CDT Alfredo Juarez MD SEND OUTS Performing Organization Address City/[facility]/ZIP Co de Phone Number [facility] INTERNAL ZIP [phone] [place] [phone] * ANTI HIV 1/2 (03/04/2009 10:05 AM CDT) ANTI HIV 1/2 Non-reacti ve [facility] Blood specimen (specimen) BLOOD SPECIMEN / Unknown 03/04/2009 10:05 AM CDT 03/04/2009 9:57 AM CDT Alfredo Juarez MD SEND OUTS [facility] INTERNAL ZIP [address] [place] [address] from Last 3 Months or Most Recently Relevant to Health Maintenance Advance Directives Documents on File Type Date Recorded Patient Staff Respiratory Therapist Expl anation Power of Professional Benefits Sales Consultant 09/04/2014 12:00 AM 07/2009 * Full Code [...] 5:57 PM 03/16/2009 5:32 PM Care Teams Toxicology Teacher Relationship Specialty Start Date End Date Preet Huff MD [address] [place] [address] PCP - General 12/02/06
--- OUTSIDE RECORDS SUMMARY | 2024-07-26 10:01 | XMS_ITS | Encounter Summary ---
Author Organization [facility] Address [address] [facility] [place] [address] Care Team Providers Care Occupational Therapist Assistant Name Role Phone HuffPreet cool Primary Care Provider [phone] Encounter Details Date Type Department Care Team [...] in an abandoned building, in an overnight intermediate, or couch-surfing.) Patient unable to answer 05/30/2024 [...] file Gender Identity Male 12/05/2017 10:39 AM INNERSOLE FITTER Sexual Orientation Not on file documented as of this encounter Plan of Treatment Not on file documented as of this encounter Visit Diagnoses Not on filedocumented in this encounter Care Teams Occupational Therapist Assistant Relationship Specialty Start Date End Date Preet Huff PCP - General 06/24/11 documented as of this encounter
--- OUTSIDE RECORDS SUMMARY | 2024-07-26 10:01 | XMS_ITS | Encounter Summary ---
Author Organization [place] Address [address] [facility] [place] [address] Care Team Providers Care Civilian Technician Name Role Phone Preet Huff Hans Primary Care Provider [phone] Reason for Visit * Reason Comments Altered Mental Status Encounter Details Date Type Department Care Team (Late st Contact Info) Description 07/12/2024 12:18 AM CDT - 07/12/2024 7:[address] 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 * Alecia Cano MD - 07/12/2024 1:14 AM CDT [facility] Stroke Telephone Note I was called by [...] To page me or covering stroke neurology team physician, click here: AMCOM Choose Nut Culler tab at top, then select NEUROLOGY/ALL SITES from middle drop- down box, press Enter, then look for stroke or telestroke for your site. * Avery Fernando MD - 07/12/2024 12:57 AM CDT Emergency Department Note History of Present Illness Chief Complaint Altered Mental Status HPI Herminio Vicotr is a 59 year old male on [...] Sleep apnea CPAP ??? 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 NECK CTA: 1. 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 NECK CTA: 1. Normal configuration [...] with 1st degree AVB Rate 65 bpm. AK interval 234 ms. QRS duration 112 ms. [...] RN - 07/12/2024 12:18 AM CDT Bed: [facility] Expected date: Expected time: Means [...] T, High Sensitivity (07/12/2024 4:23 AM CDT) [facility] Troponin T, High Sensitivity 41(H) <=22 ng/L [...] Fernando MD LAB - BLOOD ORDERABL ES [facility] Acute Care Lab [address] Lab (1st floor, no room number) [place] [address], [facility] * XR Chest 2 Views (07/12/2024 3:15 AM CDT) Anatomical Region Laterality Modality Chest Digital Radiogra phy 07/12/2024 3:15 AM CDT Impressions 07/12/2024 3:18 AM CDT IMPRESSION: Low lung volumes but the lungs appear clear. Normal heart size and pulmonary vascularity. No pleural fluid or pneumothorax. Narrative 07/12/2024 3:18 AM CDT EXAM: XR CHEST 2 VIEWS LOCATION: [facility] DATE: 07/12/2024 INDICATION: ams COMPARISON: 03/11/2024. Procedure Note Pavan Sanon MD - 07/12/2024 EXAM: XR CHEST 2 VIEWS LOCATION: [facility] DATE: 07/12/2024 INDICATION: ams COMPARISON: [...] vascular malformation involving the arteries of the wrangell of [place]arsia. NECK CTA: 1. ??Normal configuration [...] CONTRAST, CTA HEAD NECK W CONTRAST LOCATION: [facility] DATE: 07/12/2024 INDICATION: ams and [...] CONTRAST, CTA HEAD NECK W CONTRAST LOCATION: [facility] DATE: 07/12/2024 INDICATION: ams and [...] vascular malformation involving the arteries of the wrangell ofWillis. NECK CTA: 1. Normal configuration of [...] 1:49 am on 07/12/2024. Avery Fernando MD [facility] CT ORDERABLES * CTA Head [...] vascular malformation involving the arteries of the wrangell of [place]arsia. NECK CTA: 1. ??Normal configuration [...] CONTRAST, CTA HEAD NECK W CONTRAST LOCATION: [facility] DATE: 07/12/2024 INDICATION: ams and [...] CONTRAST, CTA HEAD NECK W CONTRAST LOCATION: [facility] DATE: 07/12/2024 INDICATION: ams and [...] vascular malformation involving the arteries of the wr[place]ell of[place]is. NECK CTA: 1. Normal configuration of [...] vascular malformation involving the arteries of the wrangell of [place]arsia. NECK CTA: 1. ??Normal configuration [...] CONTRAST, CTA HEAD NECK W CONTRAST LOCATION: [facility] DATE: 07/12/2024 INDICATION: ams and [...] CONTRAST, CTA HEAD NECK W CONTRAST LOCATION: [facility] DATE: 07/12/2024 INDICATION: ams and [...] vascular malformation involving the arteries of the wrangell of[place]is. NECK CTA: 1. Normal configuration of [...] CDT RH BLOOD BANK SPECIMEN EXPIRATION DATE [id number] 07/12/2024 1:01 AM CDT RH BLOOD BANK Blood BLOOD SPECIMEN / Unknown Venipuncture / Unknown 07/12/2024 1:14 AM CDT 07/12/2024 1:23 AM CDT Avery Fernando MD LAB - BLOOD BANK SHANNON T ORDER BLOOD BANK [address] [place] [address], [facility] * Extra Red Top Tube (07/12/2024 1:14 AM CDT) Hold Specimen JIC 07/12/2024 2:31 AM CDT [facility] LAB[facility]ATORY Blood BLOOD SPECIMEN / Unknown Venipuncture / Unknown 07/12/2024 1:14 AM CDT 07/12/2024 1:23 AM CDT Avery Fernando MD LAB - BLOOD ORDERABL ES LABORATORY [facility] Acute Care Lab [address] Lab (1st floor, no room number) [place] [address], [facility] * (ABNORMAL) CBC with [...] Fernando MD LAB - BLOOD ORDERABL ES [facility] Lab [address] Lab (1st floor, no room number) [address] * (ABNORMAL) INR (07/12/2024 1:14 AM CDT) INR 4.68(H) 0.85 - 1.15 07/12/2024 1:49 AM CDT [facility] LAB[facility] Blood BLOOD SPECIMEN / Unknown Venipuncture / Unknown 07/12/2024 1:14 AM CDT 07/12/2024 1:23 AM CDT Avery Fernando MD LAB - BLOOD ORDERABL ES Performing Organization Address City/[facility]/ZIP Co de Phone Number [facility] Lab [address] Lab (1st floor, no room number) [address] * Blood Culture Peripheral Blood (07/12/2024 1:14 AM CDT) Culture No Growth 07/17/2024 4:46 AM CDT [facility] Blood BLOOD SPECIMEN / Unknown Venipuncture / Unknown 07/12/2024 1:14 AM CDT 07/12/2024 1:23 AM CDT Avery Fernando MD LAB - MICRO GENERAL ORDERABLES [facility] Inf. Diseases Diag. Lab [address] [facility] [place] [address], [facility] * Hepatic function panel [...] Fernando MD LAB - BLOOD ORDERABL ES [facility] Lab [address] Lab (1st floor, no room number) [place] [address] * Lactic acid whole blood (07/12/2024 1:14 AM CDT) Lactic Acid 0.8 0.7 - 2.0 mmol/L 07/12/2024 1:27 AM CDT [facility] LAB[facility] Blood BLOOD SPECIMEN / Unknown Venipuncture / Unknown 07/12/2024 1:14 AM CDT 07/12/2024 1:23 AM CDT Avery Fernando MD LAB - BLOOD ORDERABL ES [facility] [address] Lab (1st floor, no room number) [place] [address], [facility] * (ABNORMAL) Troponin T, [...] [facility] [address] Lab (1st floor, no room number) [place] [address], [facility] * (ABNORMAL) Basic metabolic [...] Fernando MD LAB - BLOOD ORDERABL ES [facility] Lab [address] Lab (1st floor, no room number) [place] [address], [facility] * (ABNORMAL) Glucose by meter (07/12/2024 1:13 AM CDT) GLUCOSE BY METER POCT 133(H) 70 - 99 mg/dL 07/12/2024 1:20 AM CDT LABORATORY POC Blood, venous BLOOD SPECIMEN / Unknown 07/12/2024 1:13 AM CDT 07/12/2024 1:20 AM CDT Avery Fernando MD LAB - BEAKER POCT LABORATORY [facility] Acute Care Lab [address] Lab (1st floor, no room number) [place] [address], [facility] * EKG 12-lead, tracing only (07/12/2024 12:24 AM CDT) Systolic Blood Pressure mmHg RADIOLOGY RESULTS Diastolic Blood Pressure mmHg RADIOLOGY RESULTS Ventricular Rate 65 BPM RAD IOLOGY RESULTS Atrial Rate 65 BPM RADIOLOG Y RESULTS AK Interval 234 ms RADIOLOG Y RESULTS QRS Duration 112 ms RADIOLO GY RESULTS QT 430 ms RADIOLOGY RESULTS QTc 447 ms RADIOLOGY RESULTS P [place] 53 degrees RADIOLOGY RESULTS R AXIS 10 degrees RADIOLOGY RESULTS T [place] 51 degrees RADIOLOGY RESULTS Interpretation ECG Sinus rhythm with 1st degree A-V block Otherwise normal ECG When compared with ECG of 23-May-2024 17:08, Criteria for Septal infarct are no longer Present Unconfirmed report - interpretation of this ECG is computer generated - see medical record for final interpretation Confirmed by - EMERGENCY ROOM, PHYSICIAN ([id number]), editor house organ YISSEL VELASQUEZ ([id number]) on 07/12/2024 6:51:31 AM RADIOLOGY RESULTS 07/12/2024 [...] scan. documented in this encounter Care Teams Civilian Technician Relationship Specialty Start Date End Date Preet Huff PCP - General 06/24/11 documented as of this encounter
--- OUTSIDE RECORDS SUMMARY | 2024-07-26 10:01 | XMS_ITS | Referral Summary ---
Author Organization [place] Address [address] [place] [address] Care Team Providers Care Pre Press Manager Name Role Phone Preet Huff Hans Primary Care Provider [phone] Encounters Date Type Department Care Team Description 07/12/2024 Travel 07/12/2024 12:18 AM CDT - 07/12/2024 7:24 AM CDT Emergency [facility] Emergency Dept [address] [place] [address] Avery Fernando MD Richardson, Elizabeth, MD Transient hypotension; ESRD (end stage renal disease) on dialysis (H); Supratherapeutic INR Discharge Disposition: Home or Self Care 05/23/2024 1:14 PM CDT - 05/30/2024 5:21 PM CDT Hospital Encounter [facility] 5 Medical Surgical [address] [place] [address] Vi Hernandez DO Cabrera, Jesus F, MD Supratherapeutic INR; Mita's gangrene of scrotum (H) Discharge Disposition: Home or Self Care 05/23/2024 6:02 PM CDT Anesthesia Event [facility] PeriOp Services [address] [place] [address] Tom Castro MD Larson, Matthew Ray, MD 05/23/2024 6:00 PM CDT - 05/23/2024 7:00 PM CDT Surgery [facility] Services [address] [place] [address] Lizandro Barron MD Incision and [...] mg by mouth every evening Active B Fskxpfa-R-Rdsvk Acid (WESCAPS PO) Take 1 capsule by [...] in an abandoned building, in an overnight fpc, or couch-surfing.) Patient unable to answer 05/30/2024 [...] file Gender Identity Male 12/05/2017 10:39 AM MARKETING 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 Sexual Orientation Not on file Last Filed [...] on file Medical Devices Implanted Type Area Electric Mule Operator Device Identifier Shelf Expiration Date Model / Serial / Lot Graft Patch Vasc Xenosure Biologic 0.8x08cm 0.8p8 Implanted:Qty: 1 on 12/16/2017 by Jaxon Saravia MD at [facility] Bone/Tis rocco/Biol ogic Left: Iliac/Fem orals LEMAITRE VASCULAR IN 06/06/2023 0.8P8 / / [id number] Graft Pericardium 8x0.8cm Vascu-Guard Implanted:Qty: 1 on 10/20/2011 at [facility] Right: Arm [employer] 01/16/2016 [id number] / / [id number] Femoral Popliteal Artery Implanted:Qty: 1 on 05/03/2012 by Jaxon Saravia MD at [facility] Right: Groin 12/07/2021 [id number] / [id number] / Description:CADAVER FEMORAL ARTERY RINSED IN A AND B SOLUTION: A SOLUTION LOT #[id number] EXPIRATION DATE 01/09/2014 B SOLUTION LOT #[id number] EXPIRATION DATE 11/15/2013 Graft Propaten Taper [id number] Implanted:Qty: 1 on 08/09/2012 by Jaxon Saravia MD at [facility] Right: Leg 10/24/2015 [id number] / / [id number] Graft Propaten Taper [id number] Implanted:Qty: 1 on 06/20/2013 by Jaxon Saravia MD at [facility] Left: Groin [employer] 02/07/2017 [id number] / / [id number] Graft Pericardium 8x0.8cm Vascu-Guard Implanted:Qty: 1 on 05/08/2014 by Jaxon Saravia MD at [facility] Left: Leg [employer] 11/26/2018 [id number] / PN# [id number] / [id number] Procol Vascular Bioprosthesis Implanted:Qty: 1 on 07/02/2015 by Jaxon Saravia MD at [facility] Left: Groin 12/16/2018 [id number] -[id number] / [id number] / Procol Vascular Bioprosthesis Implanted:Qty: 1 on 08/13/2015 by Jaxon Saravia MD at [facility] Left: Groin 12/16/2018 [id number] -[id number] / [id number] -[id number] / Graft Vasc Bioprosthesis Procol [id number] Implanted:Qty: 1 on 03/05/2016 by Jaxon Saravia MD at [facility] Left: Leg LEMAITRE VASCULAR IN 02/03/2019 [id number] -[id number] / [id number] -[id number] / Procedures Procedure [...] CDT LIPID PROFILE STAT 12/07/2017 12:34 PM MARKETING PERFORMANCE ANALYST 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 Pathologist [facility] Troponin T, High Sensitivity 41(H) <=22 ng/L [...] MD LAB - BLOOD ORDERABL ES LABORATORY [facility] Lab [address] [facility] Lab (1st floor, no room number) [place] [address], [facility] * XR Chest 2 Views (07/12/2024 3:15 AM CDT) Anatomical Region Laterality Modality Chest Digital Radiogra phy 07/12/2024 3:15 AM CDT Impressions 07/12/2024 3:18 AM CDT IMPRESSION: Low lung volumes but the lungs appear clear. Normal heart size and pulmonary vascularity. No pleural fluid or pneumothorax. Narrative 07/12/2024 3:18 AM CDT EXAM: XR CHEST 2 VIEWS LOCATION: [facility] DATE: 07/12/2024 INDICATION: ams COMPARISON: 03/11/2024. Procedure Note Pavan Sanon MD - 07/12/2024 EXAM: XR CHEST 2 VIEWS LOCATION: [facility] DATE: 07/12/2024 INDICATION: ams COMPARISON: 03/11/2024. 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 NECK CTA: 1. ??Normal configuration [...] CONTRAST, CTA HEAD NECK W CONTRAST LOCATION: [facility] DATE: 07/12/2024 INDICATION: ams and weakness. COMPARISON: [...] CONTRAST, CTA HEAD NECK W CONTRAST LOCATION: [facility] DATE: 07/12/2024 INDICATION: ams and weakness. 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 NECK CTA: 1. Normal configuration of [...] 1:49 am on 07/12/2024. 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 NECK CTA: 1. ??Normal configuration [...] CONTRAST, CTA HEAD NECK W CONTRAST LOCATION: [facility] DATE: 07/12/2024 INDICATION: ams and weakness. COMPARISON: [...] CONTRAST, CTA HEAD NECK W CONTRAST LOCATION: [facility] DATE: 07/12/2024 INDICATION: ams and weakness. 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 NECK CTA: 1. 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 NECK CTA: 1. ??Normal configuration [...] CONTRAST, CTA HEAD NECK W CONTRAST LOCATION: [facility] DATE: 07/12/2024 INDICATION: ams and weakness. COMPARISON: [...] CONTRAST, CTA HEAD NECK W CONTRAST LOCATION: [facility] DATE: 07/12/2024 INDICATION: ams and weakness. 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 NECK CTA: 1. Normal configuration of [...] Red Top Tube (07/12/2024 1:14 AM CDT) [facility] Hold Specimen [facility] 07/12/2024 2:31 AM CDT RH LABORATORY Blood BLOOD SPECIMEN / Unknown Venipuncture / Unknown 07/12/2024 1:14 AM CDT 07/12/2024 1:23 AM CDT Avery Fernando MD LAB - BLOOD ORDERABL ES RH LABORATORY [facility] Acute Care Lab [address] Lab (1st floor, no room number) [place] [address], [facility] * (ABNORMAL) CBC with [...] LAB - BLOOD ORDERABL ES RH LABORATORY [facility] Acute Care Lab [address] [facility] Lab (1st floor, no room number) [place] [address], [facility] * Adult Type and Screen (07/12/2024 1:14 AM CDT) Only the most recent of2 resultswithin the time period is included. ABO/RH(D) O POS 07/12/2024 1:01 AM CDT RH BLOOD BANK Antibody Screen Negative Negative 07/12/2024 1:01 AM CDT RH BLOOD BANK SPECIMEN EXPIRATION DATE [id number] 07/12/2024 1:01 AM CDT RH BLOOD BANK Blood BLOOD SPECIMEN / Unknown Venipuncture / Unknown 07/12/2024 1:14 AM CDT 07/12/2024 1:23 AM CDT Avery Fernando MD LAB - BLOOD BANK SHANNON T ORDER Performing Organization Address [facility] Co de Phone Number BLOOD BANK [address] * (ABNORMAL) INR (07/12/2024 1:14 AM CDT) Only the most recent of11 resultswithin the time period is included. INR 4.68(H) 0.85 - 1.15 07/12/2024 1:49 AM CDT RH LABORATORY Blood BLOOD SPECIMEN / Unknown Venipuncture / Unknown 07/12/2024 1:14 AM CDT 07/12/2024 1:23 AM CDT Avery Fernando MD LAB - BLOOD ORDERABL ES Performing Organization Address [facility] Co de Phone Number LABORATORY [facility] [address] Lab (1st floor, no room number) [address] * Lactic acid whole blood (07/12/2024 1:14 AM CDT) Only the most recent of2 resultswithin the time period is included. Lactic Acid 0.8 0.7 - 2.0 mmol/L 07/12/2024 1:27 AM CDT LABORATORY Blood BLOOD SPECIMEN / Unknown Venipuncture / Unknown 07/12/2024 1:14 AM CDT 07/12/2024 1:23 AM CDT Avery Fernando MD LAB - BLOOD ORDERABL ES Performing Organization Address [facility]/ZIP Co de Phone Number LABORATORY [facility] Lab [address] [facility] Lab (1st floor, no room number) [address] * Hepatic function panel (07/12/2024 1:14 [...] MD LAB - BLOOD ORDERABL ES LABORATORY [facility] Acute Care Lab [address] Lab (1st floor, no room number) [place] [address] * Blood Culture Peripheral Blood (07/12/2024 [...] [facility] Lab [address] [facility], [address] [place] [address] * (ABNORMAL) Basic metabolic [...] MD LAB - BLOOD ORDERABL ES LABORATORY [facility] Acute Care Lab [address] [facility] Lab (1st floor, no room number) [place] [address], [facility] * (ABNORMAL) Glucose by meter (07/12/2024 1:13 AM CDT) Only the most recent of41 resultswithin the time period is included. GLUCOSE BY METER POCT 133(H) 70 - 99 mg/dL 07/12/2024 1:20 AM CDT LABORATORY POC Blood, venous BLOOD SPECIMEN / Unknown 07/12/2024 1:13 AM CDT 07/12/2024 1:20 AM CDT Avery Fernando MD LAB - BEAKER POCT RH LABORATORY POC [facility] Acute Care Lab [address] Lab (1st floor, no room number) [place] [address] * EKG 12-lead, tracing only (07/12/2024 12:24 AM CDT) Only the most recent of2 resultswithin the time period is included. Systolic Blood Pressure mmHg RADIOLOGY RESULTS Diastolic Blood Pressure mmHg RADIOLOGY RESULTS Ventricular Rate 65 BPM RAD IOLOGY RESULTS Atrial Rate 65 BPM RADIOLOG Y RESULTS [place] Interval 234 ms RADIOLOG Y RESULTS QRS Duration 112 ms RADIOLO GY RESULTS QT 430 ms RADIOLOGY RESULTS QTc 447 ms RADIOLOGY RESULTS P [place] 53 degrees RADIOLOGY RESULTS R AXIS 10 degrees RADIOLOGY RESULTS T [place] 51 degrees RADIOLOGY RESULTS Interpretation ECG Sinus rhythm with 1st degree A-V block Otherwise normal ECG When compared with ECG of 23-May-2024 17:08, Criteria for Septal infarct are no longer Present Unconfirmed report - interpretation of this ECG is computer generated - see medical record for final interpretation Confirmed by - EMERGENCY ROOM, PHYSICIAN ([id number]), assignment editor YISSEL VELASQUEZ ([id number]) on 07/12/2024 6:51:31 AM RADIOLOGY RESULTS 07/12/2024 [...] MD LAB - BLOOD ORDERABL ES LABORATORY [facility] Acute Care Lab [address] Lab (1st floor, no room number) [place] [address] * Extra Green Top Tube (LAB USE ONLY) (05/28/2024 6:07 AM CDT) Only the most recent of2 resultswithin the time period is included. Pathologist [facility] Hold Specimen [facility] 05/28/2024 7:32 AM CDT RH LABORATORY Blood STRUCTURE OF LEFT HAND / Unknown Venipuncture / Unknown 05/28/2024 6:07 AM CDT 05/28/2024 6:17 AM CDT Antonino Cheek MD LAB - BLOOD ORDERABL ES LABORATORY [facility] Acute Care Lab [address] Lab (1st floor, no room number) [place] [id number] [place] [address] * Extra Purple Top EDTA (LAB USE ONLY) (05/28/2024 6:07 AM CDT) Only the most recent of2 resultswithin the time period is included. Hold Specimen [facility] 05/28/2024 7:32 AM CDT LABORATORY Blood STRUCTURE OF LEFT HAND / Unknown Venipuncture / Unknown 05/28/2024 6:07 AM CDT 05/28/2024 6:17 AM CDT Antonino Cheek MD LAB - BLOOD ORDERABL ES [facility] Acute Care Lab [address] Lab (1st floor, no room number) [place] [id number] * (ABNORMAL) Hemoglobin (05/28/2024 6:07 AM CDT) Hemoglobin 7.7(L) 13.3 - 17.7 g/dL 05/28/2024 9:02 AM CDT LABORATORY Blood STRUCTURE OF LEFT HAND / Unknown Venipuncture / Unknown 05/28/2024 6:07 AM CDT 05/28/2024 6:17 AM CDT Dileep Anders MD LAB - BLOOD ORD ERABLES LABORATORY [facility] Acute Care Lab [address] Lab (1st floor, no room number) [place] [id number] * Vancomycin level (05/25/2024 2:04 PM CDT) Vancomycin 11.9 ug/mL 05/25/2024 3:28 PM CDT RH LABORATORY Comment: Traditional Dosing Therapeutic Range: Trough 10-15 ug/mL Peak 20-40 ug/mL Critical: Greater than 25.0 ug/mL Blood STRUCTURE OF RIGHT UPPER LIMB / Unknown Venipuncture / Unknown 05/25/2024 2:04 PM CDT 05/25/2024 2:07 PM CDT Antonino Cheek MD LAB - BLOOD ORDERABL ES LABORATORY [facility] Acute Care Lab [address] Lab (1st floor, no room number) [place] [address] * Hepatitis B Surface [...] LAB - BLOOD ORDERABL ES U LABORATORY [facility] [place] [facility] Lab [address] [facility], [address] [place] [address], [facility] * Hepatitis B surface antigen (05/25/2024 9:25 AM CDT) Hepatitis B Surface Antigen Nonreactive Nonreactive 05/25/2024 2:23 PM CDT UU LABORATORY Blood BLOOD SPECIMEN / Unknown Venipuncture / Unknown 05/25/2024 9:25 AM CDT 05/25/2024 10:13 AM CDT Jose Enrique Naylor MD LAB - BLOOD ORDERABL ES UU LABORATORY [facility] [place] [facility] [address] [facility], [address] [place] [address], [facility] * (ABNORMAL) Comprehensive metabolic panel [...] MD LAB - BLOOD ORDERABL ES LABORATORY [facility] Acute Care Lab [address] [facility] Lab (1st floor, no room number) [place] [address] * (ABNORMAL) Tissue Aerobic Bacterial [...] [facility] [address] [facility], [address] [place] [address] * (ABNORMAL) Gram Stain (05/23/2024 6:42 PM CDT) [facility] Culture See corresponding culture for results JOJO [...] [facility] Inf[facility] Di[facility] Lab [address] [facility], [address] * Anaerobic Bacterial Culture Routine (05/23/2024 6:42 PM CDT) Culture 4+ Mixed Aerobic and Anaerobic dev JOJO 05/25/2024 2:01 PM CDT [facility] LABORATORY Comment:No predominant organ ism Tissue SCROTAL STRUCTURE / Unknown Non-blood Collection / Unknown 05/23/2024 6:42 PM CDT 05/23/2024 6:46 PM CDT Lizandro Barron MD LAB - MICRO GENERAL ORDERABLES Performing Organization Address City/[facility]/ZIP Co de Phone Number [facility] IDD LABORATORY [facility] Inf. Diseases Diag. Lab [address] [facility], Room [place] [id number] * ANE AIRWAY ETT PERFORMABLE (05/23/2024 6:21 PM CDT) Narrative Donnell Ramos APRN CRNA - 05/23/2024 6:21 PM CDT Donnell Ramos APRN CRNA ? 05/23/2024 ??6:33 PM Airway ? Patient location during procedure: OR ? Procedure Start/Stop Times: 05/23/2024 6:21 PM Staff - ? DIETITIAN RESEARCH: Yasemin Almaguer APRN CRNA ? Performed By: [...] 6:21 PM Tom Castro MD [place] [facility] * CT Abdomen Pelvis w Contrast [...] 2:35 PM. MIKE SANTANA MD SYSTEM ID: ??[id number] Narrative 05/23/2024 2:[address] ABDOMEN [...] veins which are not included in the lgpmy-hq-gobp. MUSCULOSKELETAL: Stable degenerative changes at L4-L5 with [...] veins which are not included in the peksq-sr-faen. 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 No destructive lesions in the bones. IMPRESSION: 1. 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 2. Other chronic findings as discussed above. Findings were discussed with Dr. Kenna Coe at 2:35 PM. MIKE SANTANA MD SYSTEM ID: [id number] Vi Kenna Coe DO IMG CT ORDERABLE [...] Earl MD LAB - BLOOD UBALDO CARTER [facility] Organization Address City/State/ZIP Co de Phone Number LABORATORY [facility] Acute Care Lab [address] Lab (1st floor, no room number) [place] [address] * COLONOSCOPY (03/08/2024 1:04 PM CDT) [facility] COLONOSCOPY [facility] Patient Name: Herminio Victor ? Procedure [...] continuously. The ?Olympus Adult Colonoscope, Model # [id number], ?Censitrac # [id number] was introduced through the ?anus and advanced [...] Note Initiated On: 03/08/2024 1:04 PM MRN: ?[id number] Procedure Date: ? 03/08/2024 1:04:50 PM Scope Withdrawal Time: 0 hours 11 minutes 55 seconds Total Procedure Duration: 0 hours 17 minutes 23 seconds Estimated Blood Loss: ? Scope In: 1:12:27 PM Scope Out: 1:29:50 PM RADIOLOGY RESULTS 03/08/2024 1:04 PM CDT Eileen Earl MD PROCEDURES RADIOLOGY RESULTS * (ABNORMAL) Occult blood stool (02/24/2024 11:31 AM CDT) Pathologist [facility] Occult Blood Positive(A ) Negative JOJO 02/24/2024 11:40 AM CDT LABORATORY Stool RECTAL CONTENTS / Unknown Non-blood Collection / Unknown 02/24/2024 11:31 AM CDT 02/24/2024 11:38 AM CDT Jae Noel MD LAB - STOOLS ORDERAB LES LABORATORY [facility] Acute Care Lab [address] [facility] Lab (1st floor, no room number) [place] [address], [facility] * Hepatitis C (HIM External Result) (01/04/2022 12:00 PM CDT) Pathologist [facility] Hep C HIM See Scanned Document EXTERNAL LAB Comment:Nonreactive 01/04/2022 12:0 0 PM CDT Narrative EXTERNAL LAB - 01/04/2022 12:00 PM CDT LAB RESULT [facility] [address] [place] [address] Provider Outside LAB - HIM EXTERNAL R ESULT EXTERNAL LAB External Lab * (ABNORMAL) Lipid panel (12/07/2017 12:34 PM MARKETING PERFORMANCE ANALYST) Pathologist [facility] Cholesterol 115 <200 mg/dL 12/07/2017 1:27 PM MARKETING PERFORMANCE ANALYST [facility] Triglycerides 84 <150 mg/dL 12/07/2017 1:27 PM [facility] HDL Cholesterol 37(L) >39 mg/dL 8 1:27 PM [facility] LDL Cholesterol Calculated 61 <100 mg/dL 12/07/2017 1:27 PM [facility] Comment:Desirable: <100 mg/d l Non HDL Cholesterol 78 <130 mg/dL 12/07/2017 1:27 PM [facility] Blood specimen (specimen) 12/07/2017 12:34 PM MARKETING PERFORMANCE ANALYST 12/07/2017 12:58 PM MARKETING PERFORMANCE ANALYST Michele Fuentes MD LAB - BLOOD ORD ERABLES [facility] [address] [place] [address], [facility] [phone] from Last 3 Months or Most Recently Relevant to Health Maintenance Advance Directives For more information, please contact: [phone] * Full Code (Latest Code Status on [...] 12:25 PM 01/25/2019 11:45 AM Care Teams Pre Press Manager Relationship Specialty Start Date End Date Preet Huff PCP - General 06/24/11
--- OUTSIDE RECORDS SUMMARY | 2024-07-26 10:02 | XMS_ITS | Encounter Summary ---
Author Organization [place] Address [facility] [address] Care Team Providers Care Cranberry Grower Name Role Phone Preet Huff Primary Care Provider [phone] Reason for Visit * Auth/Cert Specialty Diagnoses / Procedures Referred By Contac t Referred To Contact EMERGENCY MEDICINE Diagnoses Supratherapeutic INR Mita's gangrene of scrotum (H28) Emergency Dept [address] [place] [address] Referral ID Status Reason Start Date Expiration Date Visits Re quested Visits Authorized [id number] 1 1 Encounter Details Date Type Department Care Team (Late st Contact Info) Description 05/23/2024 6:02 PM CDT Anesthesia Event [facility] PeriOp Services [address] [place] [address] [facility] ANESTHESIA NETWORK [address] [place], [place] [phone] Pan Michelle MD [facility] [address] [place], [place] [id number] Anesthesia Record Procedure Summary Procedure Name Responsible Anesthesiologist Anesthesia Start Time Anesthesia Stop Time Incision and drainage, debridement of scrotal skin and subcutaneous tissues for necrotizing soft tissue infection of the scrotum (Scrotum) Tom Castro MD 05/23/24 18005/[id number]/241918 Events Date Time Event Comment 05/23/2024 1711 1718 FIRER HELPER Ready for Procedure 180 AN REASSESS I attest that I have identified and re-evaluated the patient immediately before the induction of anesthesia and I am satisfied that the anesthetic plan is suitable for the patient's condition and procedure. The first vital signs recorded are pre- induction. 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 Questions answered and patient/airline security representative(s) expressed understanding. - Discussed: - Discussed [...] Times: 05/23/2024 6:21 PM Staff - ? FIRER HELPER: Yasemin Almaguer APRN FIRER HELPER ? Performed By: CRNAIndications and Patient [...] 6:21 PM Tom Castro MD [facility] documented in this encounter Visit Diagnoses [...] mg documented in this encounter Care Teams Cranberry Grower Relationship Specialty Start Date End Date Preet Huff PCP - General 06/24/11 documented as of this encounter
--- OUTSIDE RECORDS SUMMARY | 2024-07-26 10:02 | XMS_ITS | Encounter Summary ---
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 Name: Kassidy Morel RN 4:59 PM * Liliebth Pena, LINDA - 05/23/2024 1:29 PM CDT [...] POS Antibody Screen Negative SPECIMEN EXPIRATION DATE [id number] BLOOD CULTURE ABO/RH TYPE AND SCREEN Imaging CT Abdomen Pelvis w Contrast Final Result IMPRESSION: 1. 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 2. Other chronic findings as discussed above. Findings were discussed with Dr. Kenna Coe at 2:35 PM. MIKE LIPSCOMB MD SYSTEM ID: [id number] Independent Interpretation None ED Course Medications Administered [...] intermittent infusion (10mg Intravenous $New Bag 05/23/24 9187) prothrombin 4 factor complex concentrate (KCENTRA) infusion 4,156 Units (4,156 Units Intravenous $Given 05/23/24 7531) Procedures Procedures Discussion of Management Urology, Poppy [...] care. [address] Cheek [facility] who accepts 2482 Arianna Goodman (Mother) [phone] (Home Phone) Updated mom Additional Documentation None Medical Decision Making / Diagnosis [facility] Diagnoses: None MIPS None MDM Herminio [...] Expected time: Means of arrival: Ambulance Comments: [place] [facility] documented in this encounter Miscellaneous Notes * Plan of Care - Rand Ochoa OTR - 05/30/2024 5:21 PM CDT Occupational Therapy Discharge Summary Reason for therapy discharge: Discharged to home with home therapy. Progress towards therapy goal(s). See goals on Care Plan in [facility] electronic health record for goal details. Goals partially met. Barriers to achieving goals: discharge from facility. Therapy recommendation(s): Continued therapy is recommended. Rationale/Recommendations: Patient appears safe and able todischarge home with intermittent assist from family with higher level IADLS (just like baseline). Pt wouldbeenfit from HHOT to progress ADL tolerance. Pt not seen by advertising copywriter on this date, note written based on previous treating OT's note and recommendations. * Plan of Care - Joann Marinelli PT - 05/30/2024 5:21 PM CDT Physical Therapy Discharge Summary Reason for therapy discharge: Discharged to home with home therapy. Progress towards therapy goal(s). See goals on Care Plan in [facility] electronic health record for goal details. Goals not met. Barriers to achieving goals: discharge from facility. Therapy recommendation(s): Continued therapy is recommended. Rationale/Recommendations: Rec home with assist for safe mobilityand HHPT to progress strength and IND mobility. * Pharmacy-Anticoagulation Service - Joni Steel [facility] - 05/30/2024 3:00 PM CDT Images from the original note were not included. 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 INR Goal= 2-3 Warfarin [employer] Regimen: 5 mg M-F and No dose [...] Agree with discharging the patient on their station captain warfarin regimen of 5 mg M-F [...] Recent Flowsheet Documentation Taken 05/29/2024 020 by Mrace Leon RN Safety Promotion/Fall Prevention: activity supervised [...] Flowsheet Documentation Taken 05/28/2024809 by Edie Pack RNtubing oiler Interventions: declines Goal: Readiness for Transition of [...] documentation flowsheets. Pertinent assessments: Assumed cares @ [phone].Disoriented to situation and time. VSS on RA. [...] Flowsheet Documentation Taken 05/27/2024919 by Edie Pack RNtubing oiler Interventions: declines Goal: Readiness for Transition of [...] documentation flowsheets. Pertinent assessments: Assumed cares @ [phone].Disoriented to time and situation. VSS on RA. [...] bedrest * Pharmacy-Anticoagulation Service - Tobias Luis [facility] - 05/26/2024 4:50 PM CDT Clinical Pharmacy - Warfarin Dosing Consult Pharmacy has been consulted to manage this patient???s warfarin therapy. Indication: DVT/PE Prophylaxis Therapy Goal: INR 2-3 Warfarin Prior to Admission: Yes Warfarin [employer] Regimen: 5 mg M-F and No dose [...] * Pharmacy-Vancomycin Dosing Service - Chucho Zuluaga [facility] - 05/25/2024 3:31 PM CDT Pharmacy [...] shift note. Outcome: Progressing Flowsheets (Taken 05/24/2024 4694) Outcome Evaluation: Scrotal dressing changed twice. Did [...] Fall Risk Recent Flowsheet Documentation Taken 05/24/2024 0913 by Jessica Paz RN Safety Promotion/Fall Prevention: [...] member and Thelma (aunt) via phone and [phone] Pertinent Information: outside meds--none added Changes made to [employer] medication list: Added: none Deleted: norvasc, lipitor, Changed: protonix Allergies reviewed with patient and updates made in EHR: yes Medication History Completed By: Graham Joseph RPH 05/23/2024 9:51 PM [employer] Med List Medication Sig Last Dose B Rxgfqjc-N-Belkg Acid (WESCAPS PO) Take 1 capsule by [...] * Pharmacy-Vancomycin Dosing Service - John Rosado [facility] - 05/23/2024 9:03 PM CDT Pharmacy [...] and procedure to be performed. A 16 Kiswahili coud?? catheter was placed through the urethra, [...] in stable condition. Lizandro Barron MD Urology [facility] documented in this encounter [...] CDT Antonino DEAN - DAVID POCT LABORATORY [facility] Lab [address] Lab (1st floor, no room number) [place] [phone] [place] [address] * Glucose by meter (05/30/2024 7:13 AM CDT) GLUCOSE BY METER POCT 82 70 - 99 mg/dL 05/30/2024 7:19 AM CDT LABORATORY POC Blood, Capillary BLOOD SPECIMEN / Unknown 05/30/2024 7:13 AM CDT 05/30/2024 7:19 AM CDT Antonino DEAN - BEXIANG POCT LABORATORY [facility] Lab [address] Lab (1st floor, no room number) [place] [phone] [place] [address] * (ABNORMAL) INR (05/30/2024 6:54 AM CDT) INR 2.26(H) 0.85 - 1.15 05/30/2024 7:20 AM CDT LABORATORY Blood STRUCTURE OF RIGHT HAND / Unknown Venipuncture / Unknown 05/30/2024 6:54 AM CDT 05/30/2024 7:06 AM CDT Antonino Cheek MD LAB - BLOOD ORDERABL ES LABORATORY [facility] Lab [address] Lab (1st floor, no room number) [place] [address] * (ABNORMAL) Basic metabolic panel (05/30/2024 6:54 AM CDT) Pathologist [facility] Sodium 133(L) 135 - 145 mmol/L 05/30/2024 [...] LAB - BLOOD ORDERABL ES RH LABORATORY [facility] [address] Lab (1st floor, no room number) [place] [address] * (ABNORMAL) CBC with [...] BLOOD ORDERABL ES Performing Organization Address [facility]/ZIP Co de Phone Number [facility] Lab [address] Lab (1st floor, no room number) [address] [place] [address] * (ABNORMAL) Glucose by meter (05/30/2024 2:18 AM CDT) GLUCOSE BY METER POCT 138(H) 70 - 99 mg/dL 05/30/2024 2:24 AM CDT RH LABORATORY POC Blood, Capillary BLOOD SPECIMEN / Unknown 05/30/2024 2:18 AM CDT 05/30/2024 2:24 AM CDT Antonino DEAN - BEAKER POCT Performing Organization Address [facility]/ZIP Co de Phone Number LABORATORY [facility] Lab [address] Lab (1st floor, no room number) [address] [place] [address] * (ABNORMAL) Glucose by meter (05/29/2024 9:28 PM CDT) GLUCOSE BY METER POCT 160(H) 70 - 99 mg/dL 05/29/2024 9:35 PM CDT LABORATORY POC Blood, Capillary BLOOD SPECIMEN / Unknown 05/29/2024 9:28 PM CDT 05/29/2024 9:35 PM CDT Antonino DEAN - BEAKER POCT Performing Organization Address [facility]/ZIP Co de Phone Number LABORATORY [facility] Lab [address] Lab (1st floor, no room number) [address] [place] [address] * (ABNORMAL) Glucose by meter (05/29/2024 5:54 PM CDT) GLUCOSE BY METER POCT 159(H) 70 - 99 mg/dL 05/29/2024 6:01 PM CDT RH LABORATORY POC Blood, Capillary BLOOD SPECIMEN / Unknown 05/29/2024 5:54 PM CDT 05/29/2024 6:01 PM CDT Antonino Cheek MD LAB - BEAKER POCT LABORATORY [facility] Lab [address] Lab (1st floor, no room number) [place] [phone] [place] [address] * (ABNORMAL) Glucose by meter (05/29/2024 1:41 PM CDT) GLUCOSE BY METER POCT 158(H) 70 - 99 mg/dL 05/29/2024 1:48 PM CDT RH LABORATORY POC Blood, Capillary BLOOD SPECIMEN / Unknown 05/29/2024 1:41 PM CDT 05/29/2024 1:48 PM CDT Antonino Cheek MD LAB - BEAKER POCT Performing Organization Address City/[facility]/ZIP Co de Phone Number LABORATORY [facility] Lab [address] Lab (1st floor, no room number) [place] [address] * Glucose by meter (05/29/2024 7:54 AM CDT) GLUCOSE BY METER POCT 90 70 - 99 mg/dL 05/29/2024 8:01 AM CDT RH LABORATORY POC Blood, Capillary BLOOD SPECIMEN / Unknown 05/29/2024 7:54 AM CDT 05/29/2024 8:01 AM CDT Antonino Cheek MD LAB - BEAKER POCT LABORATORY [facility] Lab [address] Lab (1st floor, no room number) [place] [phone] [place] [address] * (ABNORMAL) INR (05/29/2024 6:22 AM CDT) INR 1.92(H) 0.85 - 1.15 05/29/2024 6:52 AM CDT RH LABORATORY Blood STRUCTURE OF RIGHT HAND / Unknown Venipuncture / Unknown 05/29/2024 6:22 AM CDT 05/29/2024 6:40 AM CDT Antonino Cheek MD LAB - BLOOD ORDERABL ES RH LABORATORY [facility] [address] Lab (1st floor, no room number) [place] [address] * (ABNORMAL) Basic metabolic [...] LAB - BLOOD ORDERABL ES RH LABORATORY [facility] Lab [address] Lab (1st floor, no room number) [place] [address] * (ABNORMAL) CBC with [...] LAB - BLOOD ORDERABL ES RH LABORATORY [facility] Lab [address] Lab (1st floor, no room number) [address] [place] [address] * (ABNORMAL) Glucose by meter (05/29/2024 2:26 AM CDT) GLUCOSE BY METER POCT 103(H) 70 - 99 mg/dL 05/29/2024 2:33 AM CDT RH LABORATORY POC Blood, Capillary BLOOD SPECIMEN / Unknown 05/29/2024 2:26 AM CDT 05/29/2024 2:33 AM CDT Antonino Cheek MD LAB - BEAKER POCT LABORATORY [facility] Lab [address] Lab (1st floor, no room number) [address] * (ABNORMAL) Glucose by meter (05/28/2024 9:50 PM CDT) GLUCOSE BY METER POCT 102(H) 70 - 99 mg/dL 05/28/2024 9:56 PM CDT LABORATORY POC Blood, Capillary BLOOD SPECIMEN / Unknown 05/28/2024 9:50 PM CDT 05/28/2024 9:56 PM CDT Antonino Cheek MD LAB - BEAKER POCT LABORATORY [facility] Lab [address] Lab (1st floor, no room number) [address] * (ABNORMAL) Glucose by meter (05/28/2024 5:08 PM CDT) GLUCOSE BY METER POCT 254(H) 70 - 99 mg/dL 05/28/2024 5:16 PM CDT LABORATORY POC Blood, Capillary BLOOD SPECIMEN / Unknown 05/28/2024 5:08 PM CDT 05/28/2024 5:16 PM CDT Antonino DEAN - BEAKER POCT LABORATORY [facility] Lab [address] Lab (1st floor, no room number) [place] [phone] [place] [address] * Glucose by meter (05/28/2024 1:58 PM CDT) GLUCOSE BY METER POCT 91 70 - 99 mg/dL 05/28/2024 2:05 PM CDT RH LABORATORY POC Blood, Capillary BLOOD SPECIMEN / Unknown 05/28/2024 1:58 PM CDT 05/28/2024 2:05 PM CDT Antonino Cheek MD LAB - BEXIANG POCT Performing Organization Address [facility]/ZIP Co de Phone Number LABORATORY [facility] Lab [address] Lab (1st floor, no room number) [place] [phone] [place] [address] * (ABNORMAL) Glucose by meter (05/28/2024 7:48 AM CDT) GLUCOSE BY METER POCT 128(H) 70 - 99 mg/dL 05/28/2024 7:54 AM CDT LABORATORY POC Blood, Capillary BLOOD SPECIMEN / Unknown 05/28/2024 7:48 AM CDT 05/28/2024 7:54 AM CDT Antonino DEAN - DAVID POCT LABORATORY [facility] [address] Lab (1st floor, no room number) [place] [phone], [facility] * Extra Purple Top EDTA (LAB USE ONLY) (05/28/2024 6:07 AM CDT) Hold Specimen JIC 05/28/2024 7:32 AM CDT RH LABORATORY Blood STRUCTURE OF LEFT HAND / Unknown Venipuncture / Unknown 05/28/2024 6:07 AM CDT 05/28/2024 6:17 AM CDT Antonino Cheek MD LAB - BLOOD ORDERABL ES Performing Organization Address City/[facility]/ZIP Co de Phone Number [facility] Lab [address] Lab (1st floor, no room number) [place] [phone] [place] [address] * Extra Green Top Tube (LAB USE ONLY) (05/28/2024 6:07 AM CDT) Hold Specimen JIC 05/28/2024 7:32 AM CDT RH LABORATORY Blood STRUCTURE OF LEFT HAND / Unknown Venipuncture / Unknown 05/28/2024 6:07 AM CDT 05/28/2024 6:17 AM CDT Antonino Cheek MD LAB - BLOOD ORDERABL ES Performing Organization Address [facility]/ZIP Co de Phone Number [facility] Lab [address] Lab (1st floor, no room number) [place] [phone] [place] [address] * (ABNORMAL) INR (05/28/2024 6:07 AM CDT) INR 1.87(H) 0.85 - 1.15 05/28/2024 6:27 AM CDT RH LABORATORY Blood STRUCTURE OF LEFT HAND / Unknown Venipuncture / Unknown 05/28/2024 6:07 AM CDT 05/28/2024 6:17 AM CDT Antonino Cheek MD LAB - BLOOD ORDERABL ES [facility] Lab [address] Lab (1st floor, no room number) [place] [phone] [place] [address] * (ABNORMAL) Hemoglobin (05/28/2024 6:07 AM CDT) Hemoglobin 7.7(L) 13.3 - 17.7 g/dL 05/28/2024 9:02 AM CDT RH LABORATORY Blood STRUCTURE OF LEFT HAND / Unknown Venipuncture / Unknown 05/28/2024 6:07 AM CDT 05/28/2024 6:17 AM CDT Dileep Anders MD LAB - BLOOD ORD ERABLES LABORATORY [facility] [address] [facility] Lab (1st floor, no room number) [place] [address] * (ABNORMAL) Basic metabolic [...] MD LAB - BLOOD ORD ERABLES LABORATORY [facility] Care Lab [address] Lab (1st floor, no room number) [place] [address] * (ABNORMAL) Glucose by meter (05/28/2024 2:19 AM CDT) GLUCOSE BY METER POCT 102(H) 70 - 99 mg/dL 05/28/2024 2:26 AM CDT LABORATORY POC Blood, Capillary BLOOD SPECIMEN / Unknown 05/28/2024 2:19 AM CDT 05/28/2024 2:26 AM CDT Antonino DEAN - BEAKER POCT LABORATORY [facility] Lab [address] Lab (1st floor, no room number) [place] [address], [facility] * (ABNORMAL) Glucose by meter (05/27/2024 9:05 PM CDT) GLUCOSE BY METER POCT 148(H) 70 - 99 mg/dL 05/27/2024 9:13 PM CDT LABORATORY POC Blood, Capillary BLOOD SPECIMEN / Unknown 05/27/2024 9:05 PM CDT 05/27/2024 9:13 PM CDT Antonino DEAN - BEXIANG POCT LABORATORY [facility] Lab [address] Lab (1st floor, no room number) [place] [phone], [facility] * (ABNORMAL) Glucose by meter (05/27/2024 5:11 PM CDT) GLUCOSE BY METER POCT 148(H) 70 - 99 mg/dL 05/27/2024 5:20 PM CDT RH LABORATORY POC Blood, Capillary BLOOD SPECIMEN / Unknown 05/27/2024 5:11 PM CDT 05/27/2024 5:20 PM CDT Antonino Cheek MD LAB - BEAKER POCT LABORATORY [facility] Lab [address] Lab (1st floor, no room number) [place] [address] * (ABNORMAL) Glucose by meter (05/27/2024 11:42 AM CDT) GLUCOSE BY METER POCT 149(H) 70 - 99 mg/dL 05/27/2024 11:49 AM CDT RH LABORATORY POC Blood, Capillary BLOOD SPECIMEN / Unknown 05/27/2024 11:42 AM CDT 05/27/2024 11:49 AM CDT Antonino Cheek MD LAB - BEAKER POCT Performing Organization Address City/[facility]/ZIP Co de Phone Number LABORATORY [facility] Lab [address] Lab (1st floor, no room number) [place] [address] * (ABNORMAL) Glucose by meter (05/27/2024 7:44 AM CDT) GLUCOSE BY METER POCT 108(H) 70 - 99 mg/dL 05/27/2024 7:51 AM CDT RH LABORATORY POC Blood, Capillary BLOOD SPECIMEN / Unknown 05/27/2024 7:44 AM CDT 05/27/2024 7:51 AM CDT Antonino Cheek MD LAB - BEAKER POCT LABORATORY [facility] Lab [address] Lab (1st floor, no room number) [address] * (ABNORMAL) INR (05/27/2024 7:03 AM CDT) INR 1.81(H) 0.85 - 1.15 05/27/2024 7:17 AM CDT LABORATORY Blood STRUCTURE OF RIGHT HAND / Unknown Venipuncture / Unknown 05/27/2024 7:03 AM CDT 05/27/2024 7:07 AM CDT Antonino Cheek MD LAB - BLOOD ORDERABL ES LABORATORY [facility] Care Lab [address] [employer] Lab (1st floor, no room number) [address] * (ABNORMAL) Glucose by meter (05/27/2024 2:03 AM CDT) GLUCOSE BY METER POCT 157(H) 70 - 99 mg/dL 05/27/2024 2:10 AM CDT LABORATORY POC Blood, Capillary BLOOD SPECIMEN / Unknown 05/27/2024 2:03 AM CDT 05/27/2024 2:10 AM CDT Antonino Cheek MD LAB - BEAKER POCT Performing Organization Address City/[facility]/ZIP Co de Phone Number LABORATORY POC [facility] Lab [address] Lab (1st floor, no room number) [address] * (ABNORMAL) Glucose by meter (05/26/2024 9:29 PM CDT) GLUCOSE BY METER POCT 155(H) 70 - 99 mg/dL 05/26/2024 9:37 PM CDT LABORATORY POC Blood, Capillary BLOOD SPECIMEN / Unknown 05/26/2024 9:29 PM CDT 05/26/2024 9:37 PM CDT Antonino Cheek MD LAB - BEAKER POCT LABORATORY [facility] Care Lab [address] Lab (1st floor, no room number) [place] [phone] [place] [address] * (ABNORMAL) Glucose by meter (05/26/2024 4:10 PM CDT) GLUCOSE BY METER POCT 174(H) 70 - 99 mg/dL 05/26/2024 4:19 PM CDT RH LABORATORY POC Blood, Capillary BLOOD SPECIMEN / Unknown 05/26/2024 4:10 PM CDT 05/26/2024 4:19 PM CDT Antonino Cheek MD LAB - BEAKER POCT Performing Organization Address [facility]/ZIP Co de Phone Number LABORATORY [facility] Lab [address] Lab (1st floor, no room number) [place] [phone] [place] [address] * (ABNORMAL) INR (05/26/2024 4:09 PM CDT) INR 1.67(H) 0.85 - 1.15 05/26/2024 4:28 PM CDT LABORATORY Blood STRUCTURE OF LEFT UPPER LIMB / Unknown Venipuncture / Unknown 05/26/2024 4:09 PM CDT 05/26/2024 4:15 PM CDT Antonino Cheek MD LAB - BLOOD ORDERABL ES Performing Organization Address [facility]/ZIP Co de Phone Number [facility] Lab [address] Lab (1st floor, no room number) [place] [phone] * (ABNORMAL) Glucose by meter (05/26/2024 11:37 AM CDT) GLUCOSE BY METER POCT 197(H) 70 - 99 mg/dL 05/26/2024 11:44 AM CDT RH LABORATORY POC Blood, Capillary BLOOD SPECIMEN / Unknown 05/26/2024 11:37 AM CDT 05/26/2024 11:44 AM CDT Antonino Cheek MD LAB - BEAKER POCT LABORATORY [facility] Lab [address] Lab (1st floor, no room number) [place] [address] * Glucose by meter (05/26/2024 8:22 AM CDT) GLUCOSE BY METER POCT 85 70 - 99 mg/dL 05/26/2024 8:29 AM CDT RH LABORATORY POC Blood, Capillary BLOOD SPECIMEN / Unknown 05/26/2024 8:22 AM CDT 05/26/2024 8:29 AM CDT Antonino Cheek MD LAB - BEAKER POCT Performing Organization Address City/[facility]/ZIP Co de Phone Number LABORATORY [facility] Lab [address] Lab (1st floor, no room number) [place] [phone] * (ABNORMAL) CBC with [...] LAB - BLOOD ORDERABL ES RH LABORATORY [facility] Lab [address] Lab (1st floor, no room number) [place] [address], [facility] * (ABNORMAL) Basic metabolic panel (05/26/2024 5:47 [...] MD LAB - BLOOD ORDERABL ES LABORATORY [facility] Lab [address] Lab (1st floor, no room number) [place] [phone] * (ABNORMAL) Glucose by meter (05/26/2024 1:57 AM CDT) GLUCOSE BY METER POCT 123(H) 70 - 99 mg/dL 05/26/2024 2:04 AM CDT RH LABORATORY POC Blood, Capillary BLOOD SPECIMEN / Unknown 05/26/2024 1:57 AM CDT 05/26/2024 2:04 AM CDT Antonino Cheek MD LAB - BEAKER POCT Performing Organization Address City/[facility]/ZIP Co de Phone Number LABORATORY [facility] Lab [address] [employer] Lab (1st floor, no room number) [address] * (ABNORMAL) Glucose by meter (05/25/2024 9:32 PM CDT) GLUCOSE BY METER POCT 155(H) 70 - 99 mg/dL 05/25/2024 9:39 PM CDT LABORATORY POC Blood, Capillary BLOOD SPECIMEN / Unknown 05/25/2024 9:32 PM CDT 05/25/2024 9:39 PM CDT Antonino Cheek MD LAB - BEAKER POCT Performing Organization Address [facility] Co de Phone Number LABORATORY [facility] Lab [address] Lab (1st floor, no room number) [address] * (ABNORMAL) Glucose by meter (05/25/2024 7:06 PM CDT) GLUCOSE BY METER POCT 183(H) 70 - 99 mg/dL 05/25/2024 7:14 PM CDT LABORATORY POC Blood, Capillary BLOOD SPECIMEN / Unknown 05/25/2024 7:06 PM CDT 05/25/2024 7:14 PM CDT Antonino Cheek MD LAB - BEAKER POCT LABORATORY POC [facility] [address] Lab (1st floor, no room number) [place] [phone] * (ABNORMAL) Glucose by meter (05/25/2024 5:29 PM CDT) GLUCOSE BY METER POCT 142(H) 70 - 99 mg/dL 05/25/2024 5:36 PM CDT LABORATORY POC Blood, Capillary BLOOD SPECIMEN / Unknown 05/25/2024 5:29 PM CDT 05/25/2024 5:36 PM CDT Antonino Cheek MD LAB - BEAKER POCT Performing Organization Address [facility]/ZIP Co de Phone Number LABORATORY [facility] Lab [address] Lab (1st floor, no room number) [place] [phone] * Vancomycin level (05/25/2024 [...] BLOOD ORDERABL ES Performing Organization Address [facility]/ZIP Co de Phone Number LABORATORY [facility] Care Lab [address] [address] Lab (1st floor, no room number) [place] [phone] * Extra Purple Top EDTA (LAB USE ONLY) (05/25/2024 2:04 PM CDT) Hold Specimen JIC 05/25/2024 3:17 PM CDT LABORATORY Blood STRUCTURE OF RIGHT UPPER LIMB / Unknown Venipuncture / Unknown 05/25/2024 2:04 PM CDT 05/25/2024 2:07 PM CDT Antonino Cheek MD LAB - BLOOD ORDERABL ES [facility] Care Lab [address] Lab (1st floor, no room number) [place] [address], [facility] * Extra Green Top Tube (LAB USE ONLY) (05/25/2024 2:04 PM CDT) Hold Specimen JIC 05/25/2024 3:17 PM CDT LABORATORY Blood STRUCTURE OF RIGHT UPPER LIMB / Unknown Venipuncture / Unknown 05/25/2024 2:04 PM CDT 05/25/2024 2:07 PM CDT Antonino Cheek MD LAB - BLOOD ORDERABL ES Performing Organization Address [facility]/ZIP Co de Phone Number [facility] Care Lab [address] Lab (1st floor, no room number) [place] [address], [facility] * Glucose by meter (05/25/2024 2:01 PM CDT) GLUCOSE BY METER POCT 70 70 - 99 mg/dL 05/25/2024 2:08 PM CDT LABORATORY POC Blood, Capillary BLOOD SPECIMEN / Unknown 05/25/2024 2:01 PM CDT 05/25/2024 2:08 PM CDT Antonino Cheek MD LAB - BEAKER POCT LABORATORY POC [facility] Lab [address] Lab (1st floor, no room number) [place] [address], [facility] * Hepatitis B surface antigen (05/25/2024 9:25 AM CDT) Hepatitis B Surface Antigen Nonreactive Nonreactive 05/25/2024 2:23 PM CDT UU LABORATORY Blood BLOOD SPECIMEN / Unknown Venipuncture / Unknown 05/25/2024 9:25 AM CDT 05/25/2024 10:13 AM CDT Jose Enrique Naylor MD LAB - BLOOD ORDERABL ES Performing Organization Address [facility] de Phone Number U LABORATORY [facility] [place] [facility] Lab [address] [facility], [address] [phone] [place] [address] * Hepatitis B Surface Antibody (05/25/2024 9:25 [...] - BLOOD ORDERABL ES Performing Organization Address City/[facility] Co de Phone Number LABORATORY [facility] [place] [facility] Lab [address] [facility], [address] [phone] * Glucose by meter (05/25/2024 5:35 AM CDT) GLUCOSE BY METER POCT 86 70 - 99 mg/dL 05/25/2024 5:42 AM CDT LABORATORY POC Blood, Capillary BLOOD SPECIMEN / Unknown 05/25/2024 5:35 AM CDT 05/25/2024 5:42 AM CDT Antonino Cheek MD LAB - BEAKER POCT LABORATORY [facility] Lab [address] Lab (1st floor, no room number) [place] [phone] [place] [address] * Glucose by meter (05/25/2024 2:01 AM CDT) GLUCOSE BY METER POCT 86 70 - 99 mg/dL 05/25/2024 2:08 AM CDT RH LABORATORY POC Blood, Capillary BLOOD SPECIMEN / Unknown 05/25/2024 2:01 AM CDT 05/25/2024 2:08 AM CDT Antonino Cheek MD LAB - BEXIANG POCT Performing Organization Address City/[facility]/ZIP Co de Phone Number LABORATORY [facility] Lab [address] Lab (1st floor, no room number) [place] [phone] [place] [address] * Glucose by meter (05/24/2024 8:52 PM CDT) GLUCOSE BY METER POCT 96 70 - 99 mg/dL 05/24/2024 8:59 PM CDT LABORATORY POC Blood, Capillary BLOOD SPECIMEN / Unknown 05/24/2024 8:52 PM CDT 05/24/2024 8:59 PM CDT Antonino HERNANDEZ POCT LABORATORY [facility] Lab [address] Lab (1st floor, no room number) [place] [phone], [facility] * Glucose by meter (05/24/2024 5:05 PM CDT) GLUCOSE BY METER POCT 84 70 - 99 mg/dL 05/24/2024 5:32 PM CDT RH LABORATORY POC Blood, Capillary BLOOD SPECIMEN / Unknown 05/24/2024 5:05 PM CDT 05/24/2024 5:32 PM CDT Antonino Cheek MD LAB - BEAKER POCT LABORATORY [facility] Lab [address] Lab (1st floor, no room number) [place] [phone] [place] [address] * (ABNORMAL) INR (05/24/2024 2:16 PM CDT) INR 1.16(H) 0.85 - 1.15 05/24/2024 2:34 PM CDT RH LABORATORY Blood BLOOD SPECIMEN / Unknown Venipuncture / Unknown 05/24/2024 2:16 PM CDT 05/24/2024 2:21 PM CDT Lizandro Barron MD LAB - BLOOD ORDERABL ES Performing Organization Address [facility]/ZIP Co de Phone Number [facility] Lab [address] Lab (1st floor, no room number) [place] [phone] [place] [address] * Glucose by meter (05/24/2024 12:20 PM CDT) GLUCOSE BY METER POCT 75 70 - 99 mg/dL 05/24/2024 12:26 PM CDT LABORATORY POC Blood, Capillary BLOOD SPECIMEN / Unknown 05/24/2024 12:20 PM CDT 05/24/2024 12:26 PM CDT Antonino Cheek MD LAB - BEAKER POCT LABORATORY [facility] Lab [address] Lab (1st floor, no room number) [address] [place] [address] * Glucose by meter (05/24/2024 9:12 AM CDT) GLUCOSE BY METER POCT 86 70 - 99 mg/dL 05/24/2024 9:19 AM CDT RH LABORATORY POC Blood, Capillary BLOOD SPECIMEN / Unknown 05/24/2024 9:12 AM CDT 05/24/2024 9:19 AM CDT Antonino Cheek MD LAB - [facility] RH LABORATORY [facility] Acute [facility] Lab [address] Lab (1st floor, no room number) [place] [address], [facility] * [...] MD LAB - BLOOD ORDERABL ES LABORATORY [facility] Acute Care Lab [address] [facility] Lab (1st floor, no room number) [place] [address], [facility] * [...] MD LAB - BLOOD ORDERABL ES LABORATORY [facility] Acute Care Lab [address] Lab (1st floor, no room number) [address] * INR (05/24/2024 6:09 AM CDT) INR 1.14 0.85 - 1.15 05/24/2024 6:27 AM CDT RH LABORATORY Blood STRUCTURE OF LEFT HAND / Unknown Venipuncture / Unknown 05/24/2024 6:09 AM CDT 05/24/2024 6:14 AM CDT Lizandro Barron MD LAB - BLOOD ORDERABL ES [facility] Lab [address] [facility] Lab (1st floor, no room number) [address] * (ABNORMAL) Glucose by meter (05/24/2024 4:49 AM CDT) GLUCOSE BY METER POCT 119(H) 70 - 99 mg/dL 05/24/2024 4:56 AM CDT LABORATORY POC Blood, Capillary BLOOD SPECIMEN / Unknown 05/24/2024 4:49 AM CDT 05/24/2024 4:56 AM CDT Antonino DEAN - BEAKER POCT Performing Organization Address [facility]/ZIP Co de Phone Number LABORATORY [facility] Lab [address] Lab (1st floor, no room number) [address] * (ABNORMAL) Glucose by meter (05/24/2024 1:13 AM CDT) GLUCOSE BY METER POCT 100(H) 70 - 99 mg/dL 05/24/2024 1:20 AM CDT LABORATORY POC Blood, Capillary BLOOD SPECIMEN / Unknown 05/24/2024 1:13 AM CDT 05/24/2024 1:20 AM CDT Antonino DEAN - BEAKER POCT LABORATORY [facility] Care Lab [address] Lab (1st floor, no room number) [address] * INR (05/23/2024 10:19 PM CDT) INR 1.04 0.85 - 1.15 05/23/2024 10:43 PM CDT RH LABORATORY Blood STRUCTURE OF LEFT UPPER LIMB / Unknown Venipuncture / Unknown 05/23/2024 10:19 PM CDT 05/23/2024 10:26 PM CDT Lizandro Barron MD LAB - BLOOD ORDERABL ES [facility] Lab [address] Lab (1st floor, no room number) [address] * Glucose by meter (05/23/2024 9:58 PM CDT) GLUCOSE BY METER POCT 83 70 - 99 mg/dL 05/23/2024 10:04 PM CDT LABORATORY POC Blood, Capillary BLOOD SPECIMEN / Unknown 05/23/2024 9:58 PM CDT 05/23/2024 10:04 PM CDT Antonino Cheek MD LAB - BEAKER POCT LABORATORY [facility] Care Lab [address] Lab (1st floor, no room number) [address] * (ABNORMAL) Glucose by meter (05/23/2024 9:06 PM CDT) GLUCOSE BY METER POCT 47(LL) 70 - 99 mg/dL 05/23/2024 9:13 PM CDT RH LABORATORY POC Comment:Dr/RN Notified Blood, Capillary BLOOD SPECIMEN / Unknown 05/23/2024 9:06 PM CDT 05/23/2024 9:13 PM CDT Antonino Cheek MD LAB - BEAKER POCT LABORATORY [facility] Lab [address] Lab (1st floor, no room number) [address] * Glucose by meter (05/23/2024 8:41 PM CDT) GLUCOSE BY METER POCT 78 70 - 99 mg/dL 05/23/2024 8:48 PM CDT LABORATORY POC Blood, Capillary BLOOD SPECIMEN / Unknown 05/23/2024 8:41 PM CDT 05/23/2024 8:48 PM CDT Antonino Cheek MD LAB - BEAKER POCT Performing Organization Address [facility]/ZIP Co de Phone Number LABORATORY [facility] Lab [address] Lab (1st floor, no room number) [address] * (ABNORMAL) Glucose by meter (05/23/2024 7:55 PM CDT) GLUCOSE BY METER POCT 67(L) 70 - 99 mg/dL 05/23/2024 8:02 PM CDT LABORATORY POC Blood, Capillary BLOOD SPECIMEN / Unknown 05/23/2024 7:55 PM CDT 05/23/2024 8:02 PM CDT Antonino Cheek MD LAB - BEAKER POCT LABORATORY [facility] Lab [address] Lab (1st floor, no room number) [address] * (ABNORMAL) Tissue Aerobic Bacterial Culture [...] - MICRO GENERAL ORDERABLES [facility] IDD LABORATORY [facility] Inf. Diseases Diag. Lab [address] [facility], [address] * (ABNORMAL) Gram Stain (05/23/2024 6:42 [...] - MICRO GENERAL ORDERABLES Performing Organization Address City/[facility]/ZIP Co de Phone Number [facility] IDD LABORATORY [facility] Inf. Diseases Diag. Lab [address] [facility], [address] * Anaerobic Bacterial Culture Routine (05/23/2024 6:42 PM CDT) Culture 4+ Mixed Aerobic and Anaerobic dev JOJO 05/25/2024 2:01 PM CDT U[facility] IDD LABORATORY Comment:No predominant organ ism Tissue SCROTAL STRUCTURE / Unknown Non-blood Collection / Unknown 05/23/2024 6:42 PM CDT 05/23/2024 6:46 PM CDT Lizandro Barron MD LAB - MICRO GENERAL ORDERABLES [facility] ID[facility] LABORATORY [facility] Inf. Diseases Diag. Lab [address] [facility], [address] [place] [address], [facility] * Glucose by meter (05/23/2024 5:41 PM CDT) GLUCOSE BY METER POCT 90 70 - 99 mg/dL 05/23/2024 5:49 PM CDT RH LABORATORY POC Blood, Capillary BLOOD SPECIMEN / Unknown 05/23/2024 5:41 PM CDT 05/23/2024 5:49 PM CDT Vi Coe DO LAB - BEAKER POC T LABORATORY POC [facility] Acute Care Lab [address] Lab (1st floor, no room number) [place] [address], [facility] * EKG 12-lead, tracing only (05/23/2024 5:08 PM CDT) Systolic Blood Pressure mmHg RADIOLOGY RESULTS Diastolic Blood Pressure mmHg RADIOLOGY RESULTS Ventricular Rate 63 BPM RAD IOLOGY RESULTS Atrial Rate 63 BPM RADIOLOG Y RESULTS IA Interval 222 ms RADIOLOG Y RESULTS QRS Duration 102 ms RADIOLO GY RESULTS QT 448 ms RADIOLOGY RESULTS QTc 458 ms RADIOLOGY RESULTS P [place] 54 degrees RADIOLOGY RESULTS R AXIS -5 degrees RADIOLOGY RESULTS T [place] 24 degrees RADIOLOGY RESULTS Interpretation ECG Sinus rhythm with 1st degree A-V block Septal infarct , age undetermined Abnormal ECG When compared with ECG of 02-Mar-2024 14:00, Septal infarct is now Present No significant change was found Confirmed by - EMERGENCY ROOM, PHYSICIAN ([id number]), rewrite editor LIZANDRO ZABALA ([id number]) on 05/24/2024 6:44:53 AM RADIOLOGY RESULTS 05/23/2024 5:08 PM CDT 05/24/2024 6:44 AM CDT Pan Michelle MD ECG ORDERABLES RADIOLOGY RESULTS * (ABNORMAL) INR (05/23/2024 3:42 PM CDT) INR 1.29(H) 0.85 - 1.15 05/23/2024 4:21 PM CDT RH LABORATORY Blood BLOOD SPECIMEN / Unknown Venipuncture / Unknown 05/23/2024 3:42 PM CDT 05/23/2024 3:45 PM CDT Vi Coe DO LAB - BLOOD ORDE MYRANDA [facility] Organization Address City/State/ZIP Co de Phone Number LABORATORY [facility] Acute Care Lab [address] [facility] Lab (1st floor, no room number) [place] [address] * CT Abdomen Pelvis w [...] 2:35 PM. MIKE LIPSCOMB MD SYSTEM ID: ??[id number] Narrative 05/23/2024 2:[address] ABDOMEN [...] veins which are not included in the [id number]. MUSCULOSKELETAL: Stable degenerative changes at L4-L5 with [...] veins which are not included in the [id number]. 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 No destructive lesions in the bones. IMPRESSION: 1. 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 2. Other chronic findings as discussed above. Findings were discussed with Dr. Kenna Coe at 2:35 PM. MIKE LIPSCOMB MD SYSTEM ID: [id number] Vi Coe DO IMG CT ORDERABLE S * Adult Type and Screen (05/23/2024 2:07 PM CDT) ABO/RH(D) O POS 05/23/2024 1:37 PM CDT RH BLOOD BANK Antibody Screen Negative Negative 05/23/2024 1:37 PM CDT RH BLOOD BANK SPECIMEN EXPIRATION DATE [id number] 05/23/2024 1:37 PM CDT RH BLOOD BANK Blood BLOOD SPECIMEN / Unknown Venipuncture / Unknown 05/23/2024 2:07 PM CDT 05/23/2024 2:10 PM CDT Vi Coe DO LAB - BLOOD BANK TEST ORDER RH BLOOD BANK [address] [place] [address], [facility] * [...] LAB - BLOOD ROVERTO WHITMORE RH LABORATORY [facility] Acute Care Lab [address] [facility] Lab (1st floor, no room number) [place] [address], [facility] * Lactic acid whole blood (05/23/2024 1:50 PM CDT) Lactic Acid 0.9 0.7 - 2.0 mmol/L 05/23/2024 1:57 PM CDT RH LABORATORY Blood BLOOD SPECIMEN / Unknown Venipuncture / Unknown 05/23/2024 1:50 PM CDT 05/23/2024 1:54 PM CDT Vi Coe DO LAB - BLOOD ORDE RABLES RH LABORATORY [facility] Acute Care Lab [address] Lab (1st floor, no room number) [place] [address] * Blood Culture Peripheral Blood (05/23/2024 1:50 PM CDT) Culture No Growth 05/28/2024 4:06 PM CDT UU IDD LABORATORY Blood BLOOD SPECIMEN / Unknown Venipuncture / Unknown 05/23/2024 1:50 PM CDT 05/23/2024 1:53 PM CDT Vi Coe DO LAB - MICRO GENE RAL ORDERABLES [facility]U IDD LABORATORY [facility] Inf. Diseases Diag. Lab [address] [facility], [address] [place] [address] * (ABNORMAL) Comprehensive metabolic [...] DO LAB - BLOOD ROVERTO WHITMORE LABORATORY [facility] Acute Care Lab [address] [facility] Lab (1st floor, no room number) [place] [address], [facility] * (ABNORMAL) INR (05/23/2024 1:50 PM CDT) INR >10.00(HH) 0.85 - 1.15 05/23/2024 2:30 PM CDT LABORATORY Blood BLOOD SPECIMEN / Unknown Venipuncture / Unknown 05/23/2024 1:50 PM CDT 05/23/2024 1:55 PM CDT Vi Riverared Coe DO LAB - BLOOD ROVERTO WHITMORE [facility] Organization Address City/State/ZIP Co de Phone Number LABORATORY [facility] Acute Care Lab [address] Lab (1st floor, no room number) [place] [address], [facility] documented [...] stools. documented in this encounter Care Teams Hot Tamale Man Relationship Specialty Start Date End Date Cornell Butt PCP - General 06/24/11 documented as of this encounter
--- OUTSIDE RECORDS SUMMARY | 2024-07-26 10:03 | XMS_ITS | Encounter Summary ---
Author Organization [place] Address [address] [facility] [place] [address] Care Team Providers Care Suction Operator Name Role Phone RefugioPreet Primary Care Provider [phone] Encounter Details Date Type Department Care Team (Late st Contact Info) Description 02/08/2022 External Order Results [facility] [address] [place] [address] Outside, Provider Social History Tobacco Use Types Packs/Day Years Used Date Smoking Tobacco: Never Smokeless Tobacco: Never Alcohol Use Standard Drinks/Week Comments No 0 (1 standard drink = 0.6 oz pur e alcohol) PHQ-2 Answer Date Recorded PHQ-2 Score 0 10/18/2018 Sex and Gender Information Value Date Recorded Sex Assigned at Not on file Gender Identity Male 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
--- OUTSIDE RECORDS SUMMARY | 2024-07-26 10:03 | XMS_ITS | Encounter Summary ---
Author Organization [place] Address [address] [facility] [place] [address] Care Team Providers Care Civil Engineering Design Draftsperson Name Role Phone Preet Huff Primary Care Provider Jaxon Saravia MD Unavailable [phone] Encounter Details Date Type Department Care Team (Late st Contact Info) Description 12/21/2012 Orders Only [facility] Interventional Radiology 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
--- OUTSIDE RECORDS SUMMARY | 2024-07-26 10:03 | XMS_ITS | Encounter Summary ---
Author Organization [place] Address [address] [facility] [place] [address] Care Team Providers Care Tip Printer Name Role Phone Preet Huff Primary Care Provider [phone] Jaxon Saravia MD Unavailable [phone] Encounter Details Date Type Department Care Team (Late st Contact Info) Description 10/20/2011 Hospital PHYS STANDARD [address] [phone] Wojciech [place] MD [facility] [address] [id number] ESRD (end stage renal disease) on dialysis (H); Hyperkalemia Social History Tobacco Use Types Packs/Day Years Used Date Smoking Tobacco: Never Smokeless Tobacco: Never Alcohol Use Standard Drinks/Week Comments No 0 (1 standard drink = 0.6 oz pur e alcohol) Sex and Gender Information Value Date Recorded Sex Assigned at Not on file Gender Identity Male 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
--- OUTSIDE RECORDS SUMMARY | 2024-07-26 10:03 | XMS_ITS | Encounter Summary ---
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 [...] documentation flowsheets. Pertinent assessments: Assumed cares @ [phone].Disoriented to situation and time. VSS on RA. [...] shift note. Outcome: Progressing Flowsheets (Taken 05/28/2024 0648) Outcome Evaluation: Denies pain, slept well. Goal: [...] Flowsheet Documentation Taken 05/27/2024919 by Edie Pack RNcontact lens blocker and cutter Interventions: declines Goal: Readiness for Transition of [...] documentation flowsheets. Pertinent assessments: Assumed cares @ [phone].Disoriented to time and situation. VSS on RA. [...] 2-3 Warfarin Prior to Admission: Yes Warfarin HEAD NECK SURGEON Regimen: 5 mg M-F and No dose [...] * Pharmacy-Vancomycin Dosing Service - [facility] - 05/25/2024 3:31 PM CDT Pharmacy Vancomycin [...] shift note. Outcome: Progressing Flowsheets (Taken 05/24/2024 6676) Outcome Evaluation: Scrotal dressing changed twice. Did [...] Fall Risk Recent Flowsheet Documentation Taken 05/24/2024 1400 by Jessica Paz RN Safety Promotion/Fall Prevention: [...] member and Thelma (aunt) via phone and [phone] Pertinent Information: outside meds--none added Changes made to HEAD NECK SURGEON medication list: Added: none Deleted: norvasc, lipitor, Changed: protonix Allergies reviewed with patient and updates made in EHR: yes Medication History Completed By: Graham Joseph RPH 05/23/2024 9:51 PM HEAD NECK SURGEON Med List Medication Sig Last Dose B Ypbrdlk-O-Jsmnd Acid (WESCAPS PO) Take 1 capsule by [...] and procedure to be performed. A 16 Peruvian coud?? catheter was placed through the urethra, [...] in stable condition. Lizandro Barron MD Urology [facility] documented in this encounter Plan [...] MD LAB - BEAKER POCT LABORATORY [facility] Lab [address] [email or web address] Lab (1st floor, no room number) [address] * Glucose by meter (05/30/2024 7:13 AM CDT) GLUCOSE BY METER POCT 82 70 - 99 mg/dL 05/30/2024 7:19 AM CDT LABORATORY POC Blood, Capillary BLOOD SPECIMEN / Unknown 05/30/2024 7:13 AM CDT 05/30/2024 7:19 AM CDT Antonino Cheek MD LAB - BEAKER POCT LABORATORY [facility] Lab [address] Lab (1st floor, no room number) [address] * (ABNORMAL) INR (05/30/2024 6:54 AM CDT) INR 2.26(H) 0.85 - 1.15 05/30/2024 7:20 AM CDT RH LABORATORY Blood STRUCTURE OF RIGHT HAND / Unknown Venipuncture / Unknown 05/30/2024 6:54 AM CDT 05/30/2024 7:06 AM CDT Antonino Cheek MD LAB - BLOOD ORDERABL ES RH LABORATORY [facility] Lab [address] Lab (1st floor, no room number) [place] [address] * (ABNORMAL) Basic metabolic panel (05/30/2024 [...] LAB - BLOOD ORDERABL ES RH LABORATORY [facility] Lab [address] Lab (1st floor, no room number) [place] [address] * (ABNORMAL) CBC with platelets (05/30/2024 [...] MD LAB - BLOOD ORDERABL ES LABORATORY [facility] Lab [address] Lab (1st floor, no room number) [place] [phone] [place] [address] * (ABNORMAL) Glucose by meter (05/30/2024 2:18 AM CDT) GLUCOSE BY METER POCT 138(H) 70 - 99 mg/dL 05/30/2024 2:24 AM CDT RH LABORATORY POC Blood, Capillary BLOOD SPECIMEN / Unknown 05/30/2024 2:18 AM CDT 05/30/2024 2:24 AM CDT Antonino Cheek MD LAB - BEAKER POCT LABORATORY [facility] Lab [address] [email or web address] Lab (1st floor, no room number) [address] * (ABNORMAL) Glucose by meter (05/29/2024 9:28 PM CDT) GLUCOSE BY METER POCT 160(H) 70 - 99 mg/dL 05/29/2024 9:35 PM CDT LABORATORY POC Blood, Capillary BLOOD SPECIMEN / Unknown 05/29/2024 9:28 PM CDT 05/29/2024 9:35 PM CDT Antonino Cheek MD LAB - BEAKER POCT LABORATORY [facility] Lab [address] Lab (1st floor, no room number) [address] * (ABNORMAL) Glucose by meter (05/29/2024 5:54 PM CDT) GLUCOSE BY METER POCT 159(H) 70 - 99 mg/dL 05/29/2024 6:01 PM CDT LABORATORY POC Blood, Capillary BLOOD SPECIMEN / Unknown 05/29/2024 5:54 PM CDT 05/29/2024 6:01 PM CDT Antonino Cheek MD LAB - BEAKER POCT Performing Organization Address City/[facility]/ZIP Co de Phone Number LABORATORY [facility] Lab [address] Lab (1st floor, no room number) [place] [phone] [place] [address] * (ABNORMAL) Glucose by meter (05/29/2024 1:41 PM CDT) GLUCOSE BY METER POCT 158(H) 70 - 99 mg/dL 05/29/2024 1:48 PM CDT RH LABORATORY POC Blood, Capillary BLOOD SPECIMEN / Unknown 05/29/2024 1:41 PM CDT 05/29/2024 1:48 PM CDT Antonino Cheek MD LAB - DAVID POCT Performing Organization Address [facility]/ZIP Co de Phone Number LABORATORY [facility] Lab [address] Lab (1st floor, no room number) [address] [place] [address] * Glucose by meter (05/29/2024 7:54 AM CDT) GLUCOSE BY METER POCT 90 70 - 99 mg/dL 05/29/2024 8:01 AM CDT RH LABORATORY POC Blood, Capillary BLOOD SPECIMEN / Unknown 05/29/2024 7:54 AM CDT 05/29/2024 8:01 AM CDT Antonino DEAN - BEXIANG POCT Performing Organization Address City/[facility]/ZIP Co de Phone Number LABORATORY [facility] Lab [address] Lab (1st floor, no room number) [place] [phone] * (ABNORMAL) INR (05/29/2024 6:22 AM CDT) INR 1.92(H) 0.85 - 1.15 05/29/2024 6:52 AM CDT RH LABORATORY Blood STRUCTURE OF RIGHT HAND / Unknown Venipuncture / Unknown 05/29/2024 6:22 AM CDT 05/29/2024 6:40 AM CDT Antonino Cheek MD LAB - BLOOD ORDERABL ES LABORATORY [facility] Lab [address] Lab (1st floor, no room number) [place] [address], [facility] * (ABNORMAL) Basic metabolic panel (05/29/2024 6:22 [...] MD LAB - BLOOD ORDERABL ES LABORATORY [facility] [address] Lab (1st floor, no room number) [place] [address] * (ABNORMAL) CBC with platelets (05/29/2024 6:22 AM CDT) [facility] WBC Count 7.2 4.0 - 11.0 [...] MD LAB - BLOOD ORDERABL ES LABORATORY [facility] [address] Lab (1st floor, no room number) [place] [address], [facility] * (ABNORMAL) Glucose by meter (05/29/2024 2:26 AM CDT) GLUCOSE BY METER POCT 103(H) 70 - 99 mg/dL 05/29/2024 2:33 AM CDT RH LABORATORY POC Blood, Capillary BLOOD SPECIMEN / Unknown 05/29/2024 2:26 AM CDT 05/29/2024 2:33 AM CDT Antonino Cheek MD LAB - BEAKER POCT LABORATORY [facility] Lab [address] [email or web address] Lab (1st floor, no room number) [address] [place] [address] * (ABNORMAL) Glucose by meter (05/28/2024 9:50 PM CDT) GLUCOSE BY METER POCT 102(H) 70 - 99 mg/dL 05/28/2024 9:56 PM CDT RH LABORATORY POC Blood, Capillary BLOOD SPECIMEN / Unknown 05/28/2024 9:50 PM CDT 05/28/2024 9:56 PM CDT Antonino DEAN - BEXIANG POCT Performing Organization Address [facility]/ZIP Co de Phone Number LABORATORY [facility] Lab [address] Lab (1st floor, no room number) [place] [phone] [place] [address] * (ABNORMAL) Glucose by meter (05/28/2024 5:08 PM CDT) GLUCOSE BY METER POCT 254(H) 70 - 99 mg/dL 05/28/2024 5:16 PM CDT LABORATORY POC Blood, Capillary BLOOD SPECIMEN / Unknown 05/28/2024 5:08 PM CDT 05/28/2024 5:16 PM CDT Antonino DEAN - DAVID POCT LABORATORY [facility] Lab [address] Lab (1st floor, no room number) [place] [phone] [place] [address] * Glucose by meter (05/28/2024 1:58 PM CDT) GLUCOSE BY METER POCT 91 70 - 99 mg/dL 05/28/2024 2:05 PM CDT RH LABORATORY POC Blood, Capillary BLOOD SPECIMEN / Unknown 05/28/2024 1:58 PM CDT 05/28/2024 2:05 PM CDT Antonino Cheek MD LAB - BEAKER POCT LABORATORY [facility] Lab [address] Lab (1st floor, no room number) [place] [phone] [place] [address] * (ABNORMAL) Glucose by meter (05/28/2024 7:48 AM CDT) GLUCOSE BY METER POCT 128(H) 70 - 99 mg/dL 05/28/2024 7:54 AM CDT RH LABORATORY POC Blood, Capillary BLOOD SPECIMEN / Unknown 05/28/2024 7:48 AM CDT 05/28/2024 7:54 AM CDT Antonino Cheek MD LAB - BEAKER POCT LABORATORY [facility] Lab [address] Lab (1st floor, no room number) [place] [phone] * Extra Purple Top EDTA (LAB USE ONLY) (05/28/2024 6:07 AM CDT) Hold Specimen JIC 05/28/2024 7:32 AM CDT LABORATORY Blood STRUCTURE OF LEFT HAND / Unknown Venipuncture / Unknown 05/28/2024 6:07 AM CDT 05/28/2024 6:17 AM CDT Antonino Cheek MD LAB - BLOOD ORDERABL ES Performing Organization Address [facility]/ZIP Co de Phone Number LABORATORY [facility] Lab [address] Lab (1st floor, no room number) [place] [phone] [place] [address] * Extra Green Top Tube (LAB USE ONLY) (05/28/2024 6:07 AM CDT) Hold Specimen JIC 05/28/2024 7:32 AM CDT RH LABORATORY Blood STRUCTURE OF LEFT HAND / Unknown Venipuncture / Unknown 05/28/2024 6:07 AM CDT 05/28/2024 6:17 AM CDT Antonino Cheek MD LAB - BLOOD ORDERABL ES Performing Organization Address [facility] Co de Phone Number [facility] Lab [address] Lab (1st floor, no room number) [place] [phone] [place] [address] * (ABNORMAL) INR (05/28/2024 6:07 AM CDT) INR 1.87(H) 0.85 - 1.15 05/28/2024 6:27 AM CDT RH LABORATORY Blood STRUCTURE OF LEFT HAND / Unknown Venipuncture / Unknown 05/28/2024 6:07 AM CDT 05/28/2024 6:17 AM CDT Antonino Cheek MD LAB - BLOOD ORDERABL ES Performing Organization Address [facility]/ZIP Co de Phone Number [facility] Lab [address] Lab (1st floor, no room number) [place] [phone] [place] [address] * (ABNORMAL) Hemoglobin (05/28/2024 6:07 AM CDT) Hemoglobin 7.7(L) 13.3 - 17.7 g/dL 05/28/2024 9:02 AM CDT RH LABORATORY Blood STRUCTURE OF LEFT HAND / Unknown Venipuncture / Unknown 05/28/2024 6:07 AM CDT 05/28/2024 6:17 AM CDT Dileep Anders MD LAB - BLOOD ORD ERABLES LABORATORY [facility] Lab [address] Lab (1st floor, no room number) [place] [address], [facility] * (ABNORMAL) Basic metabolic panel (05/28/2024 6:07 [...] Anders MD LAB - BLOOD ORD ERABLES [facility] Lab [address] Lab (1st floor, no room number) [place] [address], [facility] * (ABNORMAL) Glucose by meter (05/28/2024 2:19 AM CDT) GLUCOSE BY METER POCT 102(H) 70 - 99 mg/dL 05/28/2024 2:26 AM CDT RH LABORATORY POC Blood, Capillary BLOOD SPECIMEN / Unknown 05/28/2024 2:19 AM CDT 05/28/2024 2:26 AM CDT Antonino DEAN - BEAKER POCT Performing Organization Address [facility]/ZIP Co de Phone Number LABORATORY [facility] Lab [address] Lab (1st floor, no room number) [place] [address], [facility] * (ABNORMAL) Glucose by meter (05/27/2024 9:05 PM CDT) GLUCOSE BY METER POCT 148(H) 70 - 99 mg/dL 05/27/2024 9:13 PM CDT LABORATORY POC Blood, Capillary BLOOD SPECIMEN / Unknown 05/27/2024 9:05 PM CDT 05/27/2024 9:13 PM CDT Antonino Cheek MD LAB - BEAKER POCT LABORATORY [facility] Lab [address] Lab (1st floor, no room number) [place] [address], [facility] * (ABNORMAL) Glucose by meter (05/27/2024 5:11 PM CDT) GLUCOSE BY METER POCT 148(H) 70 - 99 mg/dL 05/27/2024 5:20 PM CDT RH LABORATORY POC Blood, Capillary BLOOD SPECIMEN / Unknown 05/27/2024 5:11 PM CDT 05/27/2024 5:20 PM CDT Antonino DEAN - BEXIANG POCT LABORATORY [facility] Lab [address] Lab (1st floor, no room number) [place] [phone] [place] [address] * (ABNORMAL) Glucose by meter (05/27/2024 11:42 AM CDT) GLUCOSE BY METER POCT 149(H) 70 - 99 mg/dL 05/27/2024 11:49 AM CDT LABORATORY POC Blood, Capillary BLOOD SPECIMEN / Unknown 05/27/2024 11:42 AM CDT 05/27/2024 11:49 AM CDT Antonino DEAN - BEXIANG POCT Performing Organization Address City/[facility]/ZIP Co de Phone Number LABORATORY [facility] Lab [address] Lab (1st floor, no room number) [place] [phone], [facility] * (ABNORMAL) Glucose by meter (05/27/2024 7:44 AM CDT) GLUCOSE BY METER POCT 108(H) 70 - 99 mg/dL 05/27/2024 7:51 AM CDT LABORATORY POC Blood, Capillary BLOOD SPECIMEN / Unknown 05/27/2024 7:44 AM CDT 05/27/2024 7:51 AM CDT Antonino DEAN - BEXIANG POCT LABORATORY [facility] Lab [address] Lab (1st floor, no room number) [place] [phone], [facility] * (ABNORMAL) INR (05/27/2024 7:03 AM CDT) INR 1.81(H) 0.85 - 1.15 05/27/2024 7:17 AM CDT RH LABORATORY Blood STRUCTURE OF RIGHT HAND / Unknown Venipuncture / Unknown 05/27/2024 7:03 AM CDT 05/27/2024 7:07 AM CDT Antonino Cheek MD LAB - BLOOD ORDERABL ES [facility] Lab [address] Lab (1st floor, no room number) [address] [place] [address] * (ABNORMAL) Glucose by meter (05/27/2024 2:03 AM CDT) GLUCOSE BY METER POCT 157(H) 70 - 99 mg/dL 05/27/2024 2:10 AM CDT LABORATORY POC Blood, Capillary BLOOD SPECIMEN / Unknown 05/27/2024 2:03 AM CDT 05/27/2024 2:10 AM CDT Antonino Cheek MD LAB - BEAKER POCT Performing Organization Address [facility]/ZIP Co de Phone Number LABORATORY [facility] Lab [address] Lab (1st floor, no room number) [place] [phone] * (ABNORMAL) Glucose by meter (05/26/2024 9:29 PM CDT) GLUCOSE BY METER POCT 155(H) 70 - 99 mg/dL 05/26/2024 9:37 PM CDT LABORATORY POC Blood, Capillary BLOOD SPECIMEN / Unknown 05/26/2024 9:29 PM CDT 05/26/2024 9:37 PM CDT Antonino Cheek MD LAB - BEAKER POCT LABORATORY [facility] Lab [address] Lab (1st floor, no room number) [address] * (ABNORMAL) Glucose by meter (05/26/2024 4:10 PM CDT) GLUCOSE BY METER POCT 174(H) 70 - 99 mg/dL 05/26/2024 4:19 PM CDT RH LABORATORY POC Blood, Capillary BLOOD SPECIMEN / Unknown 05/26/2024 4:10 PM CDT 05/26/2024 4:19 PM CDT Antonino Cheek MD LAB - BEAKER POCT LABORATORY POC [facility] Lab [address] Lab (1st floor, no room number) [address] * (ABNORMAL) INR (05/26/2024 4:09 PM CDT) INR 1.67(H) 0.85 - 1.15 05/26/2024 4:28 PM CDT RH LABORATORY Blood STRUCTURE OF LEFT UPPER LIMB / Unknown Venipuncture / Unknown 05/26/2024 4:09 PM CDT 05/26/2024 4:15 PM CDT Antonino Cheek MD LAB - BLOOD ORDERABL ES LABORATORY [facility] Lab [address] Lab (1st floor, no room number) [address] * (ABNORMAL) Glucose by meter (05/26/2024 11:37 AM CDT) GLUCOSE BY METER POCT 197(H) 70 - 99 mg/dL 05/26/2024 11:44 AM CDT RH LABORATORY POC Blood, Capillary BLOOD SPECIMEN / Unknown 05/26/2024 11:37 AM CDT 05/26/2024 11:44 AM CDT Antonino F Cheek MD LAB - BEAKER POCT RH LABORATORY [facility] Lab [address] Lab (1st floor, no room number) [place] [phone] [place] [address] * Glucose by meter (05/26/2024 8:22 AM CDT) GLUCOSE BY METER POCT 85 70 - 99 mg/dL 05/26/2024 8:29 AM CDT LABORATORY POC Blood, Capillary BLOOD SPECIMEN / Unknown 05/26/2024 8:22 AM CDT 05/26/2024 8:29 AM CDT Antonino HERNANDEZ POCT Performing Organization Address [facility]/ZIP Co de Phone Number RH LABORATORY [facility] Lab [address] Lab (1st floor, no room number) [address] [place] [address] * (ABNORMAL) CBC with platelets and differential [...] LAB - BLOOD ORDERABL ES RH LABORATORY [facility] Lab [address] Lab (1st floor, no room number) [place] [address], [facility] * (ABNORMAL) Basic metabolic panel (05/26/2024 5:47 [...] MD LAB - BLOOD ORDERABL ES LABORATORY [facility] Lab [address] [facility] Lab (1st floor, no room number) [place] [address], [facility] * (ABNORMAL) Glucose by meter (05/26/2024 1:57 AM CDT) GLUCOSE BY METER POCT 123(H) 70 - 99 mg/dL 05/26/2024 2:04 AM CDT RH LABORATORY POC Blood, Capillary BLOOD SPECIMEN / Unknown 05/26/2024 1:57 AM CDT 05/26/2024 2:04 AM CDT Antonino Cheek MD LAB - BEAKER POCT LABORATORY [facility] Lab [address] Lab (1st floor, no room number) [address] * (ABNORMAL) Glucose by meter (05/25/2024 9:32 PM CDT) GLUCOSE BY METER POCT 155(H) 70 - 99 mg/dL 05/25/2024 9:39 PM CDT RH LABORATORY POC Blood, Capillary BLOOD SPECIMEN / Unknown 05/25/2024 9:32 PM CDT 05/25/2024 9:39 PM CDT Antonino Cheek MD LAB - BEAKER POCT Performing Organization Address City/[facility]/ZIP Co de Phone Number LABORATORY [facility] Lab [address] Lab (1st floor, no room number) [address] * (ABNORMAL) Glucose by meter (05/25/2024 7:06 PM CDT) GLUCOSE BY METER POCT 183(H) 70 - 99 mg/dL 05/25/2024 7:14 PM CDT RH LABORATORY POC Blood, Capillary BLOOD SPECIMEN / Unknown 05/25/2024 7:06 PM CDT 05/25/2024 7:14 PM CDT Antonino Cheek MD LAB - BEAKER POCT LABORATORY [facility] Lab [address] Lab (1st floor, no room number) [address] * (ABNORMAL) Glucose by meter (05/25/2024 5:29 PM CDT) GLUCOSE BY METER POCT 142(H) 70 - 99 mg/dL 05/25/2024 5:36 PM CDT LABORATORY POC Blood, Capillary BLOOD SPECIMEN / Unknown 05/25/2024 5:29 PM CDT 05/25/2024 5:36 PM CDT Antonino Cheek MD LAB - BEAKER POCT LABORATORY [facility] Lab [address] [email or web address] Lab (1st floor, no room number) [address] * Vancomycin level (05/25/2024 2:04 PM CDT) Vancomycin 11.9 ug/mL 05/25/2024 3:28 PM CDT RH LABORATORY Comment: Traditional Dosing Therapeutic Range: Trough 10-15 ug/mL Peak 20-40 ug/mL Critical: Greater than 25.0 ug/mL Blood STRUCTURE OF RIGHT UPPER LIMB / Unknown Venipuncture / Unknown 05/25/2024 2:04 PM CDT 05/25/2024 2:07 PM CDT Antonino Cheek MD LAB - BLOOD ORDERABL ES LABORATORY [facility] Lab [address] Lab (1st floor, no room number) [place] [phone] * Extra Purple Top EDTA (LAB USE ONLY) (05/25/2024 2:04 PM CDT) Hold Specimen JIC 05/25/2024 3:17 PM CDT RH LABORATORY Blood STRUCTURE OF RIGHT UPPER LIMB / Unknown Venipuncture / Unknown 05/25/2024 2:04 PM CDT 05/25/2024 2:07 PM CDT Antonino Cheek MD LAB - BLOOD ORDERABL ES LABORATORY [facility] Lab [address] Lab (1st floor, no room number) [place] [phone] [place] [address] * Extra Green Top Tube (LAB USE ONLY) (05/25/2024 2:04 PM CDT) Hold Specimen JIC 05/25/2024 3:17 PM CDT LABORATORY Blood STRUCTURE OF RIGHT UPPER LIMB / Unknown Venipuncture / Unknown 05/25/2024 2:04 PM CDT 05/25/2024 2:07 PM CDT Antonino Cheek MD LAB - BLOOD ORDERABL ES Performing Organization Address City/[facility]/ZIP Co de Phone Number LABORATORY [facility] Lab [address] Lab (1st floor, no room number) [place] [phone] [place] [address] * Glucose by meter (05/25/2024 2:01 PM CDT) GLUCOSE BY METER POCT 70 70 - 99 mg/dL 05/25/2024 2:08 PM CDT LABORATORY POC Blood, Capillary BLOOD SPECIMEN / Unknown 05/25/2024 2:01 PM CDT 05/25/2024 2:08 PM CDT Antonino Cheek MD LAB - BEAKER POCT LABORATORY POC [facility] Lab [address] Lab (1st floor, no room number) [place] [phone] [place] [address] * Hepatitis B surface antigen (05/25/2024 9:25 AM CDT) Hepatitis B Surface Antigen Nonreactive Nonreactive 05/25/2024 2:23 PM CDT [facility] LABORATORY Blood BLOOD SPECIMEN / Unknown Venipuncture / Unknown 05/25/2024 9:25 AM CDT 05/25/2024 10:13 AM CDT Jose Enrique Naylor MD LAB - BLOOD ORDERABL ES Performing Organization Address City/[facility]/ZIP Co de Phone Number LABORATORY [facility] [address] [facility], [address] [phone] * Hepatitis B Surface Antibody (05/25/2024 [...] - BLOOD ORDERABL ES Performing Organization Address [facility] Co de Phone Number LABORATORY [facility] [address] [facility], [address] [phone] * Glucose by meter (05/25/2024 5:35 AM CDT) GLUCOSE BY METER POCT 86 70 - 99 mg/dL 05/25/2024 5:42 AM CDT LABORATORY POC Blood, Capillary BLOOD SPECIMEN / Unknown 05/25/2024 5:35 AM CDT 05/25/2024 5:42 AM CDT Antonino DEAN - BEAKER POCT LABORATORY [facility] Lab [address] Lab (1st floor, no room number) [place] [phone] * Glucose by meter (05/25/2024 2:01 AM CDT) GLUCOSE BY METER POCT 86 70 - 99 mg/dL 05/25/2024 2:08 AM CDT [facility]ORAT[facility] POC Blood, Capillary BLOOD SPECIMEN / Unknown 05/25/2024 2:01 AM CDT 05/25/2024 2:08 AM CDT Antonino Cheek MD LAB - BE[facility] POCT Performing Organization Address City/[facility]/ZIP Co de Phone Number LABORATORY [facility] [address] Lab (1st floor, no room number) [place] [phone] * Glucose by meter (05/24/2024 8:52 PM CDT) GLUCOSE BY METER POCT 96 70 - 99 mg/dL 05/24/2024 8:59 PM CDT LABORATORY POC Blood, Capillary BLOOD SPECIMEN / Unknown 05/24/2024 8:52 PM CDT 05/24/2024 8:59 PM CDT Antonino DEAN - BEXIANG POCT Performing Organization Address City/[facility]/ZIP Co de Phone Number LABORATORY [facility] Lab [address] Lab (1st floor, no room number) [place] [phone] [place] [address] * Glucose by meter (05/24/2024 5:05 PM CDT) GLUCOSE BY METER POCT 84 70 - 99 mg/dL 05/24/2024 5:32 PM CDT LABORATORY POC Blood, Capillary BLOOD SPECIMEN / Unknown 05/24/2024 5:05 PM CDT 05/24/2024 5:32 PM CDT Antonino DEAN - DAVID POCT Performing Organization Address [facility]/ZIP Co de Phone Number LABORATORY [facility] Lab [address] Lab (1st floor, no room number) [address] [place] [address] * (ABNORMAL) INR (05/24/2024 2:16 PM CDT) INR 1.16(H) 0.85 - 1.15 05/24/2024 2:34 PM CDT RH LABORATORY Blood BLOOD SPECIMEN / Unknown Venipuncture / Unknown 05/24/2024 2:16 PM CDT 05/24/2024 2:21 PM CDT Lizandro Barron MD LAB - BLOOD ORDERABL ES Performing Organization Address City/[facility]/ZIP Co de Phone Number [facility] Lab [address] Lab (1st floor, no room number) [place] [phone] [place] [address] * Glucose by meter (05/24/2024 12:20 PM CDT) GLUCOSE BY METER POCT 75 70 - 99 mg/dL 05/24/2024 12:26 PM CDT LABORATORY POC Blood, Capillary BLOOD SPECIMEN / Unknown 05/24/2024 12:20 PM CDT 05/24/2024 12:26 PM CDT Antonino HERNANDEZ POCT Performing Organization Address [facility]/ZIP Co de Phone Number LABORATORY [facility] Lab [address] Lab (1st floor, no room number) [place] [phone] [place] [address] * Glucose by meter (05/24/2024 9:12 AM CDT) GLUCOSE BY METER POCT 86 70 - 99 mg/dL 05/24/2024 9:19 AM CDT LABORATORY POC Blood, Capillary BLOOD SPECIMEN / Unknown 05/24/2024 9:12 AM CDT 05/24/2024 9:19 AM CDT Antonino Cheek MD LAB - [facility] POCT RH LABORATORY [facility] Lab [address] Lab (1st floor, no room number) [place] [address], [facility] * (ABNORMAL) CBC with [...] MD LAB - BLOOD ORDERABL ES LABORATORY [facility] Acute Care Lab [address] [facility] Lab (1st floor, no room number) [place] [address], [facility] * (ABNORMAL) Comprehensive metabolic panel (05/24/2024 6:09 [...] MD LAB - BLOOD ORDERABL ES LABORATORY [facility] Acute Care Lab [address] Lab (1st floor, no room number) [place] [address], [facility] * INR (05/24/2024 6:09 AM CDT) INR 1.14 0.85 - 1.15 05/24/2024 6:27 AM CDT LABORATORY Blood STRUCTURE OF LEFT HAND / Unknown Venipuncture / Unknown 05/24/2024 6:09 AM CDT 05/24/2024 6:14 AM CDT Lizandro Barron MD LAB - BLOOD ORDERABL ES [facility] Lab [address] Lab (1st floor, no room number) [place] [phone] * (ABNORMAL) Glucose by meter (05/24/2024 4:49 AM CDT) GLUCOSE BY METER POCT 119(H) 70 - 99 mg/dL 05/24/2024 4:56 AM CDT LABORATORY POC Blood, Capillary BLOOD SPECIMEN / Unknown 05/24/2024 4:49 AM CDT 05/24/2024 4:56 AM CDT Antonino DEAN - BEAKER POCT Performing Organization Address [facility]/ZIP Co de Phone Number LABORATORY [facility] Lab [address] Lab (1st floor, no room number) [place] [phone] * (ABNORMAL) Glucose by meter (05/24/2024 1:13 AM CDT) GLUCOSE BY METER POCT 100(H) 70 - 99 mg/dL 05/24/2024 1:20 AM CDT LABORATORY POC Blood, Capillary BLOOD SPECIMEN / Unknown 05/24/2024 1:13 AM CDT 05/24/2024 1:20 AM CDT Antonino Cheek MD LAB - BEAKER POCT LABORATORY [facility] Lab [address] Lab (1st floor, no room number) [address] * INR (05/23/2024 10:19 PM CDT) INR 1.04 0.85 - 1.15 05/23/2024 10:43 PM CDT LABORATORY Blood STRUCTURE OF LEFT UPPER LIMB / Unknown Venipuncture / Unknown 05/23/2024 10:19 PM CDT 05/23/2024 10:26 PM CDT Lizandro Barron MD LAB - BLOOD ORDERABL ES LABORATORY [facility] Lab [address] Lab (1st floor, no room number) [address] * Glucose by meter (05/23/2024 9:58 PM CDT) GLUCOSE BY METER POCT 83 70 - 99 mg/dL 05/23/2024 10:04 PM CDT LABORATORY POC Blood, Capillary BLOOD SPECIMEN / Unknown 05/23/2024 9:58 PM CDT 05/23/2024 10:04 PM CDT Antonino DEAN - BEXIANG POCT Performing Organization Address City/[facility]/ZIP Co de Phone Number LABORATORY POC [facility] Care Lab [address] Lab (1st floor, no room number) [address] * (ABNORMAL) Glucose by meter (05/23/2024 9:06 PM CDT) GLUCOSE BY METER POCT 47(LL) 70 - 99 mg/dL 05/23/2024 9:13 PM CDT LABORATORY POC Comment:Dr/RN Notified Blood, Capillary BLOOD SPECIMEN / Unknown 05/23/2024 9:06 PM CDT 05/23/2024 9:13 PM CDT Antonino DEAN - BEXIANG POCT LABORATORY [facility] Lab [address] Lab (1st floor, no room number) [place] [phone] [place] [address] * Glucose by meter (05/23/2024 8:41 PM CDT) GLUCOSE BY METER POCT 78 70 - 99 mg/dL 05/23/2024 8:48 PM CDT LABORATORY POC Blood, Capillary BLOOD SPECIMEN / Unknown 05/23/2024 8:41 PM CDT 05/23/2024 8:48 PM CDT Antonino Cheek MD LAB - BEAKER POCT LABORATORY [facility] Lab [address] Lab (1st floor, no room number) [place] [phone] * (ABNORMAL) Glucose by meter (05/23/2024 7:55 PM CDT) GLUCOSE BY METER POCT 67(L) 70 - 99 mg/dL 05/23/2024 8:02 PM CDT LABORATORY POC Blood, Capillary BLOOD SPECIMEN / Unknown 05/23/2024 7:55 PM CDT 05/23/2024 8:02 PM CDT Antonino Cheek MD LAB - BEAKER POCT LABORATORY [facility] Lab [address] Lab (1st floor, no room number) [place] [phone] [place] [address] * (ABNORMAL) Tissue Aerobic Bacterial Culture Routine [...] - MICRO GENERAL ORDERABLES [facility] Inf. Diseases Diag. Lab [address], [address] [place] [phone] * (ABNORMAL) Gram Stain (05/23/2024 6:42 [...] - MICRO GENERAL ORDERABLES [facility] Inf. Diseases Diag. Lab [address], [address] [place] [phone] * Anaerobic Bacterial Culture Routine (05/23/2024 6:42 PM CDT) Culture 4+ Mixed Aerobic and Anaerobic dev JOJO 05/25/2024 2:01 PM CDT [facility] Comment:No predominant organ ism Tissue SCROTAL STRUCTURE / Unknown Non-blood Collection / Unknown 05/23/2024 6:42 PM CDT 05/23/2024 6:46 PM CDT Lizandro Barron MD LAB - MICRO GENERAL ORDERABLES [facility] Inf. Diseases Diag. Lab [address], [address] [place] [phone] * Glucose by meter (05/23/2024 5:41 PM CDT) GLUCOSE BY METER POCT 90 70 - 99 mg/dL 05/23/2024 5:49 PM CDT RH LABORATORY POC Blood, Capillary BLOOD SPECIMEN / Unknown 05/23/2024 5:41 PM CDT 05/23/2024 5:49 PM CDT Vi Coe DO LAB - BEAKER POC T RH LABORATORY POC [facility] Lab [address] Lab (1st floor, no room number) [place] [address] * EKG 12-lead, tracing only (05/23/2024 5:08 PM CDT) Systolic Blood Pressure mmHg RADIOLOGY RESULTS Diastolic Blood Pressure mmHg RADIOLOGY RESULTS Ventricular Rate 63 BPM RAD IOLOGY RESULTS Atrial Rate 63 BPM RADIOLOG Y RESULTS MO Interval 222 ms RADIOLOG Y RESULTS QRS Duration 102 ms RADIOLO GY RESULTS QT 448 ms RADIOLOGY RESULTS QTc 458 ms RADIOLOGY RESULTS P Woodruff 54 degrees RADIOLOGY RESULTS R AXIS -5 degrees RADIOLOGY RESULTS T Woodruff 24 degrees RADIOLOGY RESULTS Interpretation ECG Sinus rhythm with 1st degree A-V block Septal infarct , age undetermined Abnormal ECG When compared with ECG of 02-Mar-2024 14:00, Septal infarct is now Present No significant change was found Confirmed by - EMERGENCY ROOM, PHYSICIAN ([id number]), greeting card editor LIZANDRO ZABALA ([id number]) on 05/24/2024 6:44:53 AM RADIOLOGY RESULTS 05/23/2024 5:08 PM CDT 05/24/2024 6:44 AM CDT Pan Michelle MD ECG ORDERABLES RADIOLOGY RESULTS * (ABNORMAL) INR (05/23/2024 3:42 PM CDT) INR 1.29(H) 0.85 - 1.15 05/23/2024 4:21 PM CDT RH LABORATORY Blood BLOOD SPECIMEN / Unknown Venipuncture / Unknown 05/23/2024 3:42 PM CDT 05/23/2024 3:45 PM CDT Vi Coe DO LAB - BLOOD ORDE MYRANDA [facility] Acute Care Lab [address] Lab (1st floor, no room number) [place] [address], [facility] * CT Abdomen Pelvis w Contrast (05/23/2024 [...] 2:35 PM. MIKE LIPSCOMB MD SYSTEM ID: [id number] Narrative 05/23/2024 2:[address] ABDOMEN [...] veins which are not included in the [id number]. MUSCULOSKELETAL: Stable degenerative changes at L4-L5 with [...] veins which are not included in the [id number]. 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 No destructive lesions in the bones. IMPRESSION: 1. 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 2. Other chronic findings as discussed above. Findings were discussed with Dr. Kenna Coe at 2:35 PM. MIKE LIPSCOMB MD SYSTEM ID: [id number] Vi Coe DO G CT ORDERABLE S * Adult Type and Screen (05/23/2024 2:07 PM CDT) ABO/RH(D) O POS 05/23/2024 1:37 PM CDT RH BLOOD BANK Antibody Screen Negative Negative 05/23/2024 1:37 PM CDT RH BLOOD BANK SPECIMEN EXPIRATION DATE [id number] 05/23/2024 1:37 PM CDT RH BLOOD BANK Blood BLOOD SPECIMEN / Unknown Venipuncture / Unknown 05/23/2024 2:07 PM CDT 05/23/2024 2:10 PM CDT Vi Coe DO LAB - BLOOD BANK TEST ORDER RH BLOOD BANK [address] [place] [address], [facility] * (ABNORMAL) CBC with [...] Coe DO LAB - BLOOD ORDE MYRANDA [facility] Organization Address City/State/ZIP Co de Phone Number RH LABORATORY [facility] Acute [facility] Lab [address] Lab (1st floor, no room number) [place] [address], [facility] * Lactic acid whole blood (05/23/2024 1:50 PM CDT) Lactic Acid 0.9 0.7 - 2.0 mmol/L 05/23/2024 1:57 PM CDT RH LABORATORY Blood BLOOD SPECIMEN / Unknown Venipuncture / Unknown 05/23/2024 1:50 PM CDT 05/23/2024 1:54 PM CDT Vi Coe DO LAB - BLOOD ORDE RABLES RH LABORATORY [facility] Acute [facility] Lab [address] Lab (1st floor, no room number) [place] [address], [facility] * Blood Culture Peripheral Blood (05/23/2024 1:50 PM CDT) Culture No Growth 05/28/2024 4:06 PM CDT [facility] Blood BLOOD SPECIMEN / Unknown Venipuncture / Unknown 05/23/2024 1:50 PM CDT 05/23/2024 1:53 PM CDT Vi Coe DO LAB - MICRO GENE RAL ORDERABLES [facility] Inf. Diseases Diag. Lab [address] [place] [address], [facility] * (ABNORMAL) Comprehensive metabolic panel (05/23/2024 1:50 [...] LAB - BLOOD AMAIRANIE MYRANDA RH LABORATORY [facility] Acute Care Lab [address] [facility] Lab (1st floor, no room number) [place] [address], [facility] * (ABNORMAL) INR (05/23/2024 1:50 PM CDT) INR >10.00(HH) 0.85 - 1.15 05/23/2024 2:30 PM CDT RH LABORATORY Blood BLOOD SPECIMEN / Unknown Venipuncture / Unknown 05/23/2024 1:50 PM CDT 05/23/2024 1:55 PM CDT Vi Coe DO LAB - BLOOD ROVERTO WHITMORE [facility] Acute Care Lab [address] Lab (1st floor, no room number) [place] [address], [facility] documented in this encounter [...] in this encounter Care Teams Customer Program Specialist Relationship Specialty Start Date End Date Cornell Butt PCP - General 06/24/11 documented as of this encounter
--- OUTSIDE RECORDS SUMMARY | 2024-07-26 10:03 | XMS_ITS | Encounter Summary ---
Author Organization [place] Address [address] [place] [address] Care Team Providers Care Traffic And Transport Planner Name Role Phone Preet Huff Primary Care Provider [phone] Encounter Details Date Type Department Care Team [...] file Gender Identity Male 12/05/2017 10:39 AM AUTOMOBILE DRIVERS Sexual Orientation Not on file documented as of this encounter Plan of Treatment Not on file documented as of this encounter Visit Diagnoses Not on filedocumented in this encounter Care Teams Traffic And Transport Planner Relationship Specialty Start Date End Date Preet Huff PCP - General 06/24/11 documented as of this encounter
--- OUTSIDE RECORDS SUMMARY | 2024-07-26 10:03 | XMS_ITS ---
Author Organization [place] Address [address] [place] [address] Care Team Providers Care Tennis Camp Instructor Name Role Phone Preet Huff Primary Care Provider [phone] Transitional Care Management Status:Closed (Closed) Start date:05/31/2024 Enrollment date:06/01/2024 End date:06/14/2024 Close reason:Goals met Continued Care and Services Coordination
--- OUTSIDE RECORDS SUMMARY | 2024-07-26 10:03 | XMS_ITS | Encounter Summary ---
Author Organization [place] Address [address] [place] [address] Care Team Providers Care Control Panel Operator Crude Unit Name Role Phone Preet Huff Primary Care Provider Jaxon Saravia MD Unavailable [phone] Encounter Details Date Type Department Care Team (Late st Contact Info) Description 05/07/2013 Orders Only [facility] Interventional Radiology [address] [place] [phone] Layla Garcia RN Clotted dialysis access (H) (Primary Dx) Social History Tobacco Use Types Packs/Day Years Used Date Smoking Tobacco: Never Smokeless Tobacco: Never Alcohol Use Standard Drinks/Week Comments No 0 (1 standard drink = 0.6 oz pur e alcohol) Sex and Gender Information Value Date Recorded Sex Assigned at Not on file Gender Identity Male 12/05/2017 10:39 AM CARDIAC CATH TECHNOLOGIST Sexual Orientation Not on file documented as of this encounter Plan of Treatment Not on file documented as of this encounter Visit Diagnoses Diagnosis Clotted dialysis access (H)- Primary Mechanical complication of other vascular device, implant, and graft documented in this encounter Care Teams Control Panel Operator Crude Unit Relationship Specialty Start Date End Date Preet Huff PCP - General 06/24/11 Jaxon Saravia MD [address] [place] [address] Assigned Heart and Vascular Provider 08/01/20 2 documented as of this encounter
--- OUTSIDE RECORDS SUMMARY | 2024-07-26 10:03 | XMS_ITS | Encounter Summary ---
Author Organization [place] Address [address] [facility] [place] [address] Care Team Providers Care Microsoft Bi Architect Name Role Phone Preet Huff Primary Care Provider Jaxon Saravia MD Unavailable [phone] Encounter Details Date Type Department Care Team (Late st Contact Info) Description 05/07/2013 Orders Only [facility] Interventional Radiology [address] [place] [phone] Layla Garcia RN Social History Tobacco Use Types Packs/Day Years Used Date Smoking Tobacco: Never Smokeless Tobacco: Never Alcohol Use Standard Drinks/Week Comments No 0 (1 standard drink = 0.6 oz pur e alcohol) Sex and Gender Information Value Date Recorded Sex Assigned at Not on file Gender Identity Male 12/05/2017 10:39 AM FISH BAIT PROCESSING SUPERVISOR Sexual Orientation Not on file documented as of this encounter Plan of Treatment Not on file documented as of this encounter Visit Diagnoses Not on filedocumented in this encounter Care Teams Microsoft Bi Architect Relationship Specialty Start Date End Date Preet Huff PCP - General 06/24/11 Jaxon Saravia MD [address] [place] [address] Assigned Heart and Vascular Provider 08/01/20 12/06/20 documented as of this encounter
== END 2024-07-26 09:57 | disposition home or self-care (01) ==
LOC: WOUND 09:56
PROVIDERS: PCP Internal Medicine Nephrology; Visit Provider Physician Assistant Surgical
DX: N49.3 Fournier gangrene (principal); N50.89 Other specified disorders of the male genital organs; E11.9 Type 2 diabetes mellitus without complications
CPT/HCPCS: 11042

== ENCOUNTER 2024-08-09 10:03 | Outpatient (CLI) | payer MEDICARE, MEDICAID, SELFPAY | END 2024-08-09 10:04 | disposition home or self-care (01) | LOC: WOUND 10:04 | PROVIDERS: PCP Internal Medicine Nephrology; Visit Provider Nurse Practitioner Family | DX: E11.22 Type 2 diabetes mellitus with diabetic chronic kidney disease (principal); N18.6 End stage renal disease; Z99.2 Dependence on renal dialysis | CPT/HCPCS: G0463 ==

== ENCOUNTER 2024-08-24 09:24 | Outpatient (CLI) | payer MEDICARE, MEDICAID, SELFPAY | END 2024-08-24 09:25 | disposition home or self-care (01) | LOC: AMB 09-11 23:56 | PROVIDERS: PCP Internal Medicine Nephrology; Visit Provider Emergency Medicine | DX: T82.838A Hemorrhage due to vascular prosthetic devices, implants and grafts, initial encounter (principal); Z99.2 Dependence on renal dialysis | CPT/HCPCS: A0425; A0429 ==

== ENCOUNTER 2024-08-31 12:42 | Outpatient (CLI) | payer MEDICARE, MEDICAID, SELFPAY ==
--- OUTSIDE RECORDS SUMMARY | 2024-09-02 00:10 | XMS_ITS | Encounter Summary ---
Author Organization [facility] Address [address] [place] [address] Phone Care Team Providers Care Tool Procurement Coordinator Name Role Phone Preet Huff MD Primary Care Provider [phone] Reason for Visit * Reason Comments Med Refill Encounter Details Date Type Department Care Team (Late st Contact Info) Description 03/23/2021 Refill [facility] [address] [facility] [address] [place], [place] [address] María Elena Styles PA [address] [facility] [address] [facility] [address] [place] [address] Social History Tobacco Use Types Packs/Day Years [...] on filedocumented in this encounter Care Teams Tool Procurement Coordinator Relationship Specialty Start Date End Date Preet Huff MD [address] [place] [phone] PCP - General 10/31/19 documented as of this encounter
--- OUTSIDE RECORDS SUMMARY | 2024-09-02 00:10 | XMS_ITS | Continuity of Care Document ---
Author Organization [facility] Address [address] [address] [place] [address] Phone Care Team Providers Care Home Mortgage Disclosure Act Specialist Name Role Phone Paul Rasmussen MD Unavailable [...] on Encounter Init Hosp-da E&m Mod Severity [facility], [address] [address], [place], [place], [id number], [place] tel:[phone] [facility] No Information [address]. [address] [place] [address], [id number], [place]. tel:[phone] Referring Provider: Paul Flores, [address] [place] [address], [id number]. tel:[phone] [facility] Hosp-[facility] E&m Minr Compl [facility], [address] [address], [place], [place], [id number], [place] tel:[phone] [facility] No Information 4 Darren CANO Mackenzie. [address] [place] [address], [id number], [place]. tel:[phone] Referring Provider: Mackenzie Felix, [address] [place] [address], [id number]. [phone] [facility], [address] [address], [place], [place], [id number], [phone] [facility] No Information 4 Janette Hoyt. [address] [place] [address], [id number], [place]. tel:[phone] Referring Provider: Lai Kelly, [address] [place] [address], [id number]. tel:[phone] [facility], [facility] [address], [place], [place], [id number], [phone] [facility] No Information 4 Mark Waldrop. [address] [place] [address], [id number], [place]. tel:[phone] Referring Provider: Benjie Flores MD, [address] [place] [address], [id number]. tel:[phone] [facility] Severity [facility], [address] [address], [place], [place], [id number], [phone] [facility] No Information 4 Tiffany Copeland. [address] [place] [address], [id number], [place]. tel:[phone] Referring Provider: Preet Maxwell, [address], [place], [address]. tel:[phone] Family History Family Member Type Diagnosis Age At Onset No Information Payers Payer name Insurance type Covered republican ID Issac rossi(s) Medicare NGS MB [id number] [place] Medical Assistance [id number] Social History Type Description Quantity Date Captured [...]
--- OUTSIDE RECORDS SUMMARY | 2024-09-02 00:10 | XMS_ITS | Clinical Summary ---
Author Organization [facility] Address [address] [place] [address] Phone Care Team Providers Care Multiple Pressure Riveter Operator Name Role Phone Preet Huff MD Primary Care Provider [phone] Medications Medication Sig Dispensed Refills Start Date End Date Status cholecalciferol (VITAMIN D-3) 1000 units tablet 1 tab qd 04/02/2015 Active B Complex Vitamins (VITAMIN B COMPLEX) tablet 1 tab po daily 12/08/2012 Act bill bisacodyl (DULCOLAX) 5 MG EC tablet 2 tabs po bid 04/02/2015 Active B Lohywya-E-Tarho Acid (RENAL) 1 MG capsule 1 cap [...] 1982 Influenza Vaccine (#1) 2024 Care Teams Multiple Pressure Riveter Operator Relationship Specialty Start Date End Date Preet Huff MD [address] [place] [address] PCP - General 10/31/19
--- OUTSIDE RECORDS SUMMARY | 2024-09-02 00:10 | XMS_ITS | Clinical Summary ---
Author Organization [facility] Address [place], [place] [address] Care Team Providers Care Commercial Artist Lettering Name Role Phone Preet Huff MD Primary [...] mcg by mouth once daily. Active epoetin mauriico (EPOGEN;PROCRIT) 20,000 unit/mL injection 14,300 units. 14,300 [...] DVT of upper extremity (deep vein thrombosis) long-term (current) use of anticoagulants 2010 Secondary hyperparathyroidism [...] Type Department Care Team Description 08/11/2024 Refill [facility] [address] [place] [address] Preet Huff MD Refill Request (Amlodipine) 07/27/2024 Telephone [facility] [address] [place] [address] Preet Huff MD blood pressure 07/26/2024 Nurse Triage [facility] [address] [place] [address] Preet Huff MD Low Blood Pressure 07/24/2024 Telephone [facility] [address] [place] [address] rPeet Huff MD DME Supply ([facility]); [place] 06/28/2024 Orders Only [facility] Scanner 1 scan: (1-Ord) BERN, WOUND DEBRIDEMENT ANTERIOR SCROTUM, 06/28/2024 06/13/2024 Telephone [facility] [address] [place], [place] [address] Preet Huff MD Follow Up (NO OPENINGS AT WOUND CLINIC) 06/07/2024 2:30 PM CDT Office Visit [facility] [address] [place] [address] Lizandro Singh MD Sleep Follow-up 06/07/2024 2:05 PM CDT Office Visit [facility] [address] [place] [address] Preet Huff MD [facility] 06/07/2024 Travel from [...] Completed 10/21/2009 Medical Devices Implanted Type Area Branch Account Manager Device Identifier Shelf Expiration Date Model / Serial / Lot Cath Peritoneal Cvd 62cm - [id number] Implanted:Qty: 1 on 10/31/2009 at [facility] N/A: Abdomen STIVEN 05/10/2014 [id number] 10 # / / [id number] Procedures Procedure Name Priority Date/Time Associated Diagnosis Comments SCAN-OPERATIVE/PROC EDURE REPORT 06/28/2024 12:00 AM CDT LIPID PANEL W REFLEX MEASURED LDL Routine 11/08/2023 3:05 PM OPHTHALMIC AIDE Mixed hyperlipidemia COLONOSCOPY SCREENING Routine 09/24/2013 12:00 AM OPHTHALMIC AIDE Colon cancer screening ANTI HIV 1/2 Timed [...] W REFLEX MEASURED LDL (11/08/2023 3:05 PM OPHTHALMIC AIDE) CHOLESTEROL,TOTAL 90(L) 100 - 199 mg/dL 11/09/2023 10:41 AM OPHTHALMIC AIDE [employer] [facility] Comment: Cholesterol, Total Reference Ranges Desirable <200 mg/dL Borderline 200-239 mg/dL High >=240 mg/dL TRIGLYCERIDES 104 <150 mg/dL 11/09/2023 10:41 AM OPHTHALMIC AIDE [employer] [facility] HDL CHOLESTEROL 30(L) >40 mg/dL 10:41 AM OPHTHALMIC AIDE [facility] NON-HDL CHOLESTEROL 60 <145 mg/dl 11/09/2023 10:41 AM [facility] [employer] [facility] CHOL/HDL RATIO 3.00 <4.50 11/09/2023 10:41 AM OPHTHALMIC AIDE [employer] [facility] LDL CHOLESTEROL 39 <=130 mg/dL 11/09/2023 10:41 AM OPHTHALMIC AIDE [facility] VLDL CHOLESTEROL 21 <=30 mg/dL 11/09/2023 10:41 AM OPHTHALMIC AIDE [facility] PROVIDER ORDERED STATUS RANDOM 11/09/2023 10:41 AM OPHTHALMIC AIDE [facility] Blood BLOOD SPECIMEN / Unknown Butterfly / Unknown 11/08/2023 3:05 PM OPHTHALMIC AIDE 11/08/2023 3:08 PM OPHTHALMIC AIDE Preet Huff MD CHEMISTRY [facility] [address] [place] [address], * COLONOSCOPY SCREENING (09/24/2013 12:00 AM OPHTHALMIC AIDE) Narrative 09/24/2013 12:00 AM OPHTHALMIC AIDE Procedure Note Scanner - 09/24/2013 12:00 AM CST Preet Huff MD GI PROCEDURE O RD * ANTI HCV (03/04/2009 10:05 AM CDT) ANTI HCV Non-reacti ve [facility] Blood specimen (specimen) BLOOD SPECIMEN / Unknown 03/04/2009 10:05 AM CDT 03/04/2009 9:57 AM CDT Alfredo Juarez MD SEND OUTS [facility] INTERNAL ZIP [address] [place] [address] * ANTI HIV 1/2 (03/04/2009 10:05 AM CDT) ANTI HIV 1/2 Non-reacti ve [facility] Blood specimen (specimen) BLOOD SPECIMEN / Unknown 03/04/2009 10:05 AM CDT 03/04/2009 9:57 AM CDT Alfredo Juarez MD SEND OUT[facility] INTERNAL ZIP [address] [place] [address] from Last 3 Months or Most Recently Relevant to Health Maintenance Advance Directives Documents on File Type Date Recorded Patient Astrophysics Professor Expl anation Power of Freight Breaker 09/04/2014 12:00 AM 07/2009 * Full Code [...] 5:57 PM 03/16/2009 5:32 PM Care Teams Commercial Artist Lettering Relationship Specialty Start Date End Date Preet Huff MD [address] [place] [address] PCP - General 12/02/06
--- OUTSIDE RECORDS SUMMARY | 2024-09-02 00:10 | XMS_ITS | Encounter Summary ---
Author Organization [facility] Address [address] [place] [address] Phone Care Team Providers Care Crankshaft Straightener Name Role Phone Preet Huff MD Primary Care Provider [phone] Reason for Visit * Reason Comments Med Refill Encounter Details Date Type Department Care Team (Late st Contact Info) Description 02/12/2021 Refill [facility] [address] [facility] [address] [place], [place] [address] María Elena Styles PA [address] [place] [address] Social History Tobacco Use Types Packs/Day Years Used Date Smoking Tobacco: Never Assessed Sex and Gender Information Value Date Recorded Sex Assigned at Not on file Gender Identity Not on file Sexual Orientation Not on file documented as of this encounter Plan of Treatment Not on file documented as of this encounter Visit Diagnoses Not on filedocumented in this encounter Care Teams Crankshaft Straightener Relationship Specialty Start Date End Date Preet Huff MD [address] [place] [phone] PCP - General 10/31/19 documented as of this encounter
--- OUTSIDE RECORDS SUMMARY | 2024-09-02 00:11 | XMS_ITS | Encounter Summary ---
Author Organization [facility] Address [address] [facility] [place] [address] Care Team Providers Care Senior Back End Java Developer Name Role Phone HuffPreet cool Primary Care Provider [phone] Encounter Details Date Type Department Care Team [...] in an abandoned building, in an overnight correction, or couch-surfing.) Patient unable to answer 08/24/2024 [...] on file Legal Sex Male 5:12 AM DRUMS TEACHER Gender Identity Male 12/05/2017 10:39 AM DRUMS TEACHER Sexual Orientation Not on file documented as of this encounter Plan of Treatment Upcoming Encounters Date Type Department Care Team (Late st Contact Info) Description 09/27/2024 1:00 PM DRUMS TEACHER Office Visit [facility] [address] [place] [phone] Jaxon Saravia MD [address] [place] [address] documented as of this encounter Visit Diagnoses Not on filedocumented in this encounter Care Teams Senior Back End Java Developer Relationship Specialty Start Date End Date Preet Huff PCP - General 06/24/11 documented as of this encounter
--- OUTSIDE RECORDS SUMMARY | 2024-09-02 00:11 | XMS_ITS | Encounter Summary ---
Author Organization [place] Address [address] [facility] [place] [place] [address] Care Team Providers Care Lathing Supervisor Name Role Phone HuffPreet cool Primary Care Provider [phone] Encounter Details Date Type Department Care Team [...] on file Legal Sex Male 5:12 AM ACCESS LEAD Gender Identity Male 12/05/2017 10:39 AM ACCESS LEAD Sexual Orientation Not on file documented as of this encounter Plan of Treatment Upcoming Encounters Date Type Department Care Team (Late st Contact Info) Description 09/27/2024 1:00 PM ACCESS LEAD Office Visit [facility] [address] [place] [phone] Jaxon Saravia MD [address] [place] [address] documented as of this encounter Visit Diagnoses Not on filedocumented in this encounter Care Teams Lathing Supervisor Relationship Specialty Start Date End Date Preet Huff PCP - General 06/24/11 documented as of this encounter
--- OUTSIDE RECORDS SUMMARY | 2024-09-02 00:11 | XMS_ITS | Clinical Summary ---
Author Organization [place] Address [address] [place] [address] Care Team Providers Care Form Raiser Name Role Phone Preet Huff Primary Care Provider [phone] Allergies No known active allergies Medications calcium acetate (PHOSLO) 667 MG CAPS capsule Take 1,334 mg by mouth 3 times daily (with meals). Active calcium acetate (PHOSLO) 667 MG CAPS capsule Take 1,334 mg by mouth Take with snacks or supplements . Take 1 capsule (667 mg) once daily with a snack Active B Pzinoqw-G-Aqjou Acid (WESCAPS PO) Take 1 capsule by [...] [facility] [place] [address] [place] [address] Jaxon Saravia MD Clinic Care Coordination - Follow-up (Follow up after ED visit 08/24/2024. 05/28/[address] Saravia. 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) Discharge Disposition: [facility] Facility 08/24/2024 Travel 07/12/2024 12:18 AM CDT - 07/12/2024 7:24 AM CDT Emergency [facility] Emergency Dept [address] [place] [address] Avery Fernando MD Richardson, Elizabeth, MD Transient [...] on file Legal Sex Male 5:12 AM CHIEF AIRLINE RADIO OPERATOR Gender Identity Male 12/05/2017 10:39 AM CHIEF AIRLINE RADIO OPERATOR Sexual Orientation Not on file Last Filed Vital Signs Vital Sign Reading Time Taken Comments Blood Pressure 105/48 08/25/2024 1:00 PM CHIEF AIRLINE RADIO OPERATOR Pulse 66 08/25/2024 1:00 PM CHIEF AIRLINE RADIO OPERATOR Temperature 36.5 C (97.7 F) 08/25/2024 1:00 PM CHIEF AIRLINE RADIO OPERATOR Respiratory Rate 16 08/25/2024 1:00 PM CHIEF AIRLINE RADIO OPERATOR Oxygen Saturation 100% 08/25/2024 1:00 PM CHIEF AIRLINE RADIO OPERATOR Inhaled Oxygen Concentration - - Weight 88 kg (194 lb 1.6 oz) 08/25/2024 8:30 AM CHIEF AIRLINE RADIO OPERATOR Height 162.6 cm (5' 4) 08/24/2024 5:27 PM CHIEF AIRLINE RADIO OPERATOR Body Mass Index 33.32 08/24/2024 5:27 PM CHIEF AIRLINE RADIO OPERATOR Plan of Treatment Upcoming Encounters Date Type Department Care Team (Late st Contact Info) Description 09/27/2024 1:00 PM CHIEF AIRLINE RADIO OPERATOR Office Visit [facility] [place] [address] [place] [phone] Jaxon Saravia MD [address] [address] Health Maintenance Due Date Last Done Comments [...] this topic Medical Devices Implanted Type Area Compensation And Benefits Advisor Device Identifier Shelf Expiration Date Model / Serial / Lot Graft Patch Vasc Xenosure Biologic 0.8x08cm 0.8p8 Implanted:Qty: 1 on 12/16/2017 by Jaxon Saravia MD at [facility] Bone/Tis rocco/Biol ogic Left: Iliac/Fem orals LEMA[employer]RE VASCULAR IN 06/06/2023 0.8P8 / / [id number] Graft Pericardium 8x0.8cm Vascu-Guard Implanted:Qty: 1 on 10/20/2011 at [facility] Right: Arm [employer] 01/16/2016 [id number] / / [id number] Femoral Popliteal Artery Implanted:Qty: 1 on 05/03/2012 by Jaxon Saravia MD at [facility] Right: Groin 12/07/2021 [id number] / [id number] / Description:CADAVER FEMORAL ARTERY RINSED IN A AND B SOLUTION: A SOLUTION LOT #[id number] EXPIRATION DATE 01/09/2014 B SOLUTION LOT #[id number] EXPIRATION DATE 11/15/2013 Graft Propaten Taper [id number] Implanted:Qty: 1 on 08/09/2012 by Jaxon Saravia MD at [facility] Right: Leg 10/24/2015 [id number] / / [id number] Graft Propaten Taper [id number] Implanted:Qty: 1 on 06/20/2013 by Jaxon Saravia MD at [facility] Left: Groin [employer] 02/07/2017 [id number] / / [id number] Graft Pericardium 8x0.8cm Vascu-Guard Implanted:Qty: 1 on 05/08/2014 by Jaxon Saravia MD at [facility] Left: Leg [employer] 11/26/2018 [id number] / PN# [id number] / [id number] Procol Vascular Bioprosthesis Implanted:Qty: 1 on 07/02/2015 by Jaxon Saravia MD at [facility] Left: Groin 12/16/2018 [id number] -[id number] / [id number] / Procol Vascular Bioprosthesis Implanted:Qty: 1 on 08/13/2015 by Jaxon Saravia MD at [facility] Left: Groin 12/16/2018 [id number] -[id number] / [id number] / Graft Vasc Bioprosthesis Procol [id number] Implanted:Qty: 1 on 03/05/2016 by Jaxon Saravia MD at [facility] Left: Leg LEMAITRE VASCULAR IN 02/03/2019 [id number] -[id number] / [id number] / Procedures Procedure Name Priority Date/Time Associated Diagnosis Comments CBC WITH PLATELETS & DIFFERENTIAL STAT 08/25/2024 6:52 AM CHIEF AIRLINE RADIO OPERATOR CBC WITH PLATELETS AND DIFFERENTIAL STAT 08/25/2024 6:52 AM CHIEF AIRLINE RADIO OPERATOR INR Routine 08/25/2024 6:52 AM CHIEF AIRLINE RADIO OPERATOR BASIC METABOLIC PANEL Routine 08/25/2024 6:52 AM CHIEF AIRLINE RADIO OPERATOR US EXTREMITY ARTERIAL VENOUS DIALYSIS ACCESS GRAFT STAT 08/24/2024 3:25 PM CHIEF AIRLINE RADIO OPERATOR BASIC METABOLIC PANEL STAT 08/24/2024 12:50 PM CHIEF AIRLINE RADIO OPERATOR CBC WITH PLATELETS & DIFFERENTIAL STAT 08/24/2024 10:43 AM CHIEF AIRLINE RADIO OPERATOR CBC WITH PLATELETS AND DIFFERENTIAL STAT 08/24/2024 10:43 AM CHIEF AIRLINE RADIO OPERATOR INR STAT 08/24/2024 10:43 AM CHIEF AIRLINE RADIO OPERATOR TROPONIN T, HIGH SENSITIVITY STAT 07/12/2024 4:23 [...] CDT LIPID PROFILE STAT 12/07/2017 12:34 PM CHIEF AIRLINE RADIO OPERATOR 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 WBC Count 2.7(L) 4.0 - 11.0 10e3/uL 08/25/2024 6:58 AM CHIEF AIRLINE RADIO OPERATOR [facility] RBC Count 4.40 4.40 - 5.90 10e6/uL 08/25/2024 6:58 AM CHIEF AIRLINE RADIO OPERATOR [facility] Hemoglobin 11.4(L) 13.3 - 17.7 g/dL 08/25/2024 6:58 AM CHIEF AIRLINE RADIO OPERATOR [facility] Hematocrit 36.5(L) 40.0 - 53.0 % 08/25/2024 6:58 AM CHIEF AIRLINE RADIO OPERATOR [facility] MCV 83 78 - 100 fL 08/25/2024 6:58 AM CHIEF AIRLINE RADIO OPERATOR [facility] MCH 25.9(L) 26.5 - 33.0 pg 08/25/2024 6:58 AM CHIEF AIRLINE RADIO OPERATOR [facility] MCHC 31.2(L) 31.5 - 36.5 g/dL 08/25/2024 6:58 AM CHIEF AIRLINE RADIO OPERATOR [facility] RDW 18.6(H) 10.0 - 15.0 % 08/25/2024 6:58 AM CHIEF AIRLINE RADIO OPERATOR [facility] Platelet Count 112(L) 150 - 450 10e3/uL 08/25/2024 6:58 AM CHIEF AIRLINE RADIO OPERATOR [facility] % Neutrophils 56 % 08/25/2024 6:58 AM CHIEF AIRLINE RADIO OPERATOR [facility] % Lymphocytes 24 % 08/25/2024 6:58 AM CHIEF AIRLINE RADIO OPERATOR [facility] % Monocytes 16 % 08/25/2024 6:58 AM CHIEF AIRLINE RADIO OPERATOR [facility] % Eosinophils 3 % 08/25/2024 6:58 AM CHIEF AIRLINE RADIO OPERATOR [facility] % Basophils 0 % 08/25/2024 6:58 AM CHIEF AIRLINE RADIO OPERATOR [facility] % Immature Granulocytes 0 % 08/25/2024 6:58 AM CHIEF AIRLINE RADIO OPERATOR [facility] NRBCs per 100 WBC 0 <1 /100 024 6:58 AM CHIEF AIRLINE RADIO OPERATOR [facility] Absolute Neutrophils 1.5(L) 1.6 - 8.3 10e3/uL 08/25/2024 6:58 AM CHIEF AIRLINE RADIO OPERATOR [facility] Absolute Lymphocytes 0.7(L) 0.8 - 5.3 10e3/uL 08/25/2024 6:58 AM CHIEF AIRLINE RADIO OPERATOR [facility] Absolute Monocytes 0.4 0.0 - 1.3 10e3/uL 08/25/2024 6:58 AM CHIEF AIRLINE RADIO OPERATOR [facility] Absolute Eosinophils 0.1 0.0 - 0.7 10e3/uL 08/25/2024 6:58 AM CHIEF AIRLINE RADIO OPERATOR [facility] Absolute Basophils 0.0 0.0 - 0.2 10e3/uL 08/25/2024 6:58 AM CHIEF AIRLINE RADIO OPERATOR [facility] Absolute Immature Granulocytes 0.0 <=0.4 10e3/uL 08/25/2024 6:58 AM CHIEF AIRLINE RADIO OPERATOR [facility] Absolute NRBCs 0.0 10e3/uL 08/25/2024 6:58 AM CHIEF AIRLINE RADIO OPERATOR [facility] Blood STRUCTURE OF RIGHT HAND / Unknown Venipuncture / Unknown 08/25/2024 6:52 AM CHIEF AIRLINE RADIO OPERATOR 08/25/2024 6:56 AM CHIEF AIRLINE RADIO OPERATOR us Kolby Gandara MD LAB - BLOOD ORDERABLES Final Result [facility] [address] Lab (1st floor, no room number) [place] [address], [facility] * (ABNORMAL) INR (08/25/2024 6:52 AM CHIEF AIRLINE RADIO OPERATOR) Only the most recent of3 resultswithin the time period is included. [facility] INR 2.01(H) 0.85 - 1.15 08/25/2024 7:07 AM [facility] Blood STRUCTURE OF RIGHT HAND / Unknown Venipuncture / Unknown 08/25/2024 6:52 AM CHIEF AIRLINE RADIO OPERATOR 08/25/2024 6:56 AM CHIEF AIRLINE RADIO OPERATOR us Kolby Gandara MD LAB - BLOOD ORDERABLES Final Result LABORATORY [facility] [address] [facility] Lab (1st floor, no room number) [place] [address], [facility] * (ABNORMAL) Basic metabolic panel (08/25/2024 6:52 AM CHIEF AIRLINE RADIO OPERATOR) Only the most recent of3 resultswithin the time period is included. Pathologist [facility] Sodium 128(L) 135 - 145 mmol/L 08/25/2024 7:18 AM [facility] Potassium 4.3 3.4 - 5.3 mmol/L 08/25/2024 7:18 AM [facility] Chloride 88(L) 98 - 107 mmol/L 08/25/2024 7:18 AM [facility] Carbon Dioxide (CO2) 23 22 - 29 mmol/L 08/25/2024 7:18 AM [facility] Anion Gap 17(H) 7 - 15 mmol/L 08/25/2024 7:18 AM [facility] Urea Nitrogen 57.7(H) 8.0 - 23.0 mg/dL 08/25/2024 7:18 AM [facility] Creatinine 11.75(H) 0.67 - 1.17 mg/dL 08/25/2024 7:18 AM [facility] GFR Estimate 4(L) >60 mL/min/1. 73m2 08/25/2024 7:18 AM [facility] Comment:eGFR calculated 2020 CKD-EPI equation. Calcium 8.7(L) 8.8 - 10.4 mg/dL 08/25/2024 7:18 AM [facility] Comment:Reference intervals for this test were updated on 04/24/2024 to reflect our healthy population more accurately. There may be differences in the flagging of prior results with similar values performed with this method. Those prior results can be interpreted in the context of the updated reference intervals. Glucose 92 70 - 99 mg/dL 08/25/2024 7:18 AM CHIEF AIRLINE RADIO OPERATOR [facility] Blood STRUCTURE OF RIGHT HAND / Unknown Venipuncture / Unknown 08/25/2024 6:52 AM CHIEF AIRLINE RADIO OPERATOR 08/25/2024 6:56 AM CHIEF AIRLINE RADIO OPERATOR Kolby Gandara MD LAB - BLOOD ORDERABLES Final Result [facility] [address] Lab (1st floor, no room number) [place] [address], [facility] * US Ext Arterial Venous Dialys Acs Graft (08/24/2024 3:25 PM CHIEF AIRLINE RADIO OPERATOR) Anatomical Region Laterality Modality Vascular, Abdomen/Pelvis Ultraso und Impressions 08/24/2024 4:23 PM CHIEF AIRLINE RADIO OPERATOR IMPRESSION: 1. Patent arteriovenous fistula. 2. 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 ISIS REINOSO DO Narrative 08/24/2024 4:23 PM CHIEF AIRLINE RADIO OPERATOR US EXTREMITY ARTERIAL VENOUS DIALYSIS ACCESS GRAFT [...] cm. ISIS REINOSO DO Mateo Gonzalez MD [facility] [place] ORDERABLES Final Result * (ABNORMAL) Troponin T, High Sensitivity (07/12/2024 4:23 AM CDT) Only the most recent of2 resultswithin the time period is included. [facility] Troponin T, High Sensitivity 41(H) <=22 ng/L [...] - BLOOD ORDERABLES Final Res ult LABORATORY [facility] [address] [facility] Lab (1st floor, no room number) [place] [address], [facility] * XR Chest 2 Views (07/12/2024 3:15 AM CDT) Anatomical Region Laterality Modality Chest Digital Radiogra phy 07/12/2024 3:15 AM CDT Impressions 07/12/2024 3:18 AM CDT IMPRESSION: Low lung volumes but the lungs appear clear. Normal heart size and pulmonary vascularity. No pleural fluid or pneumothorax. Narrative 07/12/2024 3:18 AM CDT EXAM: XR CHEST 2 VIEWS LOCATION: [facility] DATE: 07/12/2024 INDICATION: ams COMPARISON: 03/11/2024. Procedure Note Pavan Sanon MD - 07/12/2024 EXAM: XR CHEST 2 VIEWS LOCATION: [facility] DATE: 07/12/2024 INDICATION: ams COMPARISON: 03/11/2024. [...] vascular malformation involving the arteries of the [place]. NECK CTA: 1. Normal configuration [...] CONTRAST, CTA HEAD NECK W CONTRAST LOCATION: [facility] DATE: 07/12/2024 INDICATION: ams and weakness. [...] CONTRAST, CTA HEAD NECK W CONTRAST LOCATION: [facility] DATE: 07/12/2024 INDICATION: ams and weakness. 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 NECK CTA: 1. Normal configuration of [...] 1:49 am on 07/12/2024. Avery Fernando MD [facility] [place] ORDERABLES Final Result * CTA Head [...] vascular malformation involving the arteries of the [place]. NECK CTA: 1. Normal configuration [...] CONTRAST, CTA HEAD NECK W CONTRAST LOCATION: [facility] DATE: 07/12/2024 INDICATION: ams and weakness. [...] CONTRAST, CTA HEAD NECK W CONTRAST LOCATION: [facility] DATE: 07/12/2024 INDICATION: ams and weakness. 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 NECK CTA: 1. Normal configuration of [...] 1:49 am on 07/12/2024. Avery Fernando MD [facility] [place] ORDERABLES Final Result * CT Head [...] vascular malformation involving the arteries of the [place]. NECK CTA: 1. Normal configuration [...] CONTRAST, CTA HEAD NECK W CONTRAST LOCATION: [facility] DATE: 07/12/2024 INDICATION: ams and weakness. [...] CONTRAST, CTA HEAD NECK W CONTRAST LOCATION: [facility] DATE: 07/12/2024 INDICATION: ams and weakness. 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 NECK CTA: 1. Normal configuration of [...] Red Top Tube (07/12/2024 1:14 AM CDT) [facility] Hold Specimen [facility] 07/12/2024 2:31 AM CDT LABORATORY Blood BLOOD SPECIMEN / Unknown Venipuncture / Unknown 07/12/2024 1:14 AM CDT 07/12/2024 1:23 AM CDT Avery Fernando MD LAB - BLOOD ORDERABLES Final Res ult LABORATORY [facility] [address] Lab (1st floor, no room number) [place] [address] * Adult Type and Screen (07/12/2024 1:14 AM CDT) ABO/RH(D) O POS 07/12/2024 1:01 AM CDT RH BLOOD BANK Antibody Screen Negative Negative 07/12/2024 1:01 AM CDT RH BLOOD BANK SPECIMEN EXPIRATION DATE [id number] 07/12/2024 1:01 AM CDT RH BLOOD BANK Blood BLOOD SPECIMEN / Unknown Venipuncture / Unknown 07/12/2024 1:14 AM CDT 07/12/2024 1:23 AM CDT Avery Fernando MD LAB - BLOOD BANK TEST ORDER Summer l Result Performing Organization Address [facility]/ZIP Co de Phone Number BLOOD BANK [address] [place] [address] * Lactic acid whole blood (07/12/2024 1:14 AM CDT) Lactic Acid 0.8 0.7 - 2.0 mmol/L 07/12/2024 1:27 AM CDT [facility] LAB[facility]ATORY Blood BLOOD SPECIMEN / Unknown Venipuncture / Unknown 07/12/2024 1:14 AM CDT 07/12/2024 1:23 AM CDT Avery Fernando MD LAB - BLOOD ORDERABLES Final Res ult LABORATORY [facility] [address] Lab (1st floor, no room number) [place] [address] * Hepatic function panel (07/12/2024 1:14 AM [...] BLOOD ORDERABLES Final Res ult [facility] LABORATORY [facility] [address] Lab (1st floor, no room number) [place] [address], [facility] * Blood Culture Peripheral Blood (07/12/2024 1:14 AM CDT) Culture No Growth 07/17/2024 4:46 AM CDT [facility] Blood BLOOD SPECIMEN / Unknown Venipuncture / Unknown 07/12/2024 1:14 AM CDT 07/12/2024 1:23 AM CDT Avery Fernando MD LAB - MICRO GENERAL ORDERABLES F inal Result [facility] Inf. Diseases Diag. Lab [address] [place] [address], [facility] * (ABNORMAL) Glucose by meter (07/12/2024 1:13 AM CDT) GLUCOSE BY METER POCT 133(H) 70 - 99 mg/dL 07/12/2024 1:20 AM CDT [facility] LAB[facility] POC Blood, venous BLOOD SPECIMEN / Unknown 07/12/2024 1:13 AM CDT 07/12/2024 1:20 AM CDT Avery Fernando MD LAB - BEAKER POCT Final Result [facility]AT[facility] POC [facility] [address] Lab (1st floor, no room number) [place] [address] * EKG 12-lead, tracing only (07/12/2024 12:24 AM CDT) Systolic Blood Pressure mmHg RADIOLOGY RESULTS Diastolic Blood Pressure mmHg RADIOLOGY RESULTS Ventricular Rate 65 BPM RAD IOLOGY RESULTS Atrial Rate 65 BPM RADIOLOG Y RESULTS W[place] Interval 234 ms RADIOLOG Y RESULTS QRS Duration 112 ms RADIOLO GY RESULTS QT 430 ms RADIOLOGY RESULTS QTc 447 ms RADIOLOGY RESULTS P [place] 53 degrees RADIOLOGY RESULTS R AXIS 10 degrees RADIOLOGY RESULTS T [place] 51 degrees RADIOLOGY RESULTS Interpretation ECG Sinus rhythm with 1st degree A-V block Otherwise normal ECG When compared with ECG of 23-May-2024 17:08, Criteria for Septal infarct are no longer Present Unconfirmed report - interpretation of this ECG is computer generated - see medical record for final interpretation Confirmed by - EMERGENCY ROOM, PHYSICIAN ([id number]), pictures editor YISSEL VELASQUEZ ([id number]) on 07/12/2024 6:51:31 AM RADIOLOGY RESULTS 07/12/2024 [...] LAB - BLOOD ORDERABLES Fin al Result [facility] [address] Lab (1st floor, no room number) [place] [address], [facility] * COLONOSCOPY (03/08/2024 1:04 PM CDT) [facility] Patient Name: Herminio Victor Procedure Date: [...] continuously. The Olympus Adult Colonoscope, Model # [id number], Censitrac # [id number] was introduced through the anus and advanced [...] ORDERABLES Final Re sult Performing Organization Address City/[facility]/ZIP Co de Phone Number LABORATORY [facility] [address] [facility] Lab (1st floor, no room number) [place] [address] * Hepatitis C (HIM External Result) (01/04/2022 12:00 PM CDT) Hep C HIM See Scanned Document EXTERNAL LAB Comment:Nonreactive 01/04/2022 12:0 0 PM CDT Narrative EXTERNAL LAB - 01/04/2022 12:00 PM CDT LAB RESULT [facility] [address] [place] [address] us Provider Outside LAB - HIM EXTERNAL RESULT Final Result EXTERNAL LAB External Lab * (ABNORMAL) Lipid panel (12/07/2017 12:34 PM CHIEF AIRLINE RADIO OPERATOR) Pathologist [facility] Cholesterol 115 <200 mg/dL 12/07/2017 1:27 PM [facility] Triglycerides 84 <150 mg/dL 12/07/2017 1:27 PM CHIEF AIRLINE RADIO OPERATOR [facility] HDL Cholesterol 37(L) >39 mg/dL 8 1:27 PM [facility] LDL Cholesterol Calculated 61 <100 mg/dL 12/07/2017 1:27 PM CHIEF AIRLINE RADIO OPERATOR [facility] Comment:Desirable: <100 mg/d l Non HDL Cholesterol 78 <130 mg/dL 12/07/2017 1:27 PM CHIEF AIRLINE RADIO OPERATOR [facility] Blood specimen (specimen) 12/07/2017 12:34 PM CHIEF AIRLINE RADIO OPERATOR 12/07/2017 12:58 PM CHIEF AIRLINE RADIO OPERATOR Michele Fuentes MD LAB - BLOOD ORDERABLES Final Result [facility] [address] [place] [address], [facility] [phone] from Last 3 Months or Most Recently Relevant to Health Maintenance Insurance [place] Advance Directives For more information, please contact: [phone] * Full Code (Latest Code Status on [...] patie nt/ legal decision maker Care Teams Form Raiser Relationship Specialty Start Date End Date Preet Huff PCP - General 06/24/11
--- OUTSIDE RECORDS SUMMARY | 2024-09-02 00:11 | XMS_ITS | Referral Summary ---
Author Organization [place] Address [address] [facility] [place] [address] Care Team Providers Care Biochemical Engineer Name Role Phone Preet Huff Hans Primary Care Provider [phone] Encounters Date Type Department Care Team Description 08/27/2024 [facility] [place] [address] [place] [phone] Jaxon Saravia MD Clinic Care Coordination - Follow-up (Follow up after ED visit 08/24/2024. 05/28/[address] Saravia. 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) Discharge Disposition: Halfway Facility 08/24/2024 Travel 07/12/2024 Travel 07/12/2024 12:18 AM CDT - 07/12/2024 7:24 AM CDT Emergency [facility] Emergency Dept [address] [place] [address] Avery Fernando MD Richardson, Elizabeth, MD Transient [...] once daily with a snack Active B Aeqfhof-Z-Jubky Acid (WESCAPS PO) Take 1 capsule by [...] in an abandoned building, in an overnight retirement, or couch-surfing.) Patient unable to answer 08/24/2024 [...] on file Legal Sex Male 5:12 AM INDUSTRIAL GAS FITTER HELPER Gender Identity Male 12/05/2017 10:39 AM INDUSTRIAL GAS FITTER HELPER Sexual Orientation Not on file Last Filed Vital Signs Vital Sign Reading Time Taken Comments Blood Pressure 105/48 08/25/2024 1:00 PM INDUSTRIAL GAS FITTER HELPER Pulse 66 08/25/2024 1:00 PM INDUSTRIAL GAS FITTER HELPER Temperature 36.5 C (97.7 F) 08/25/2024 1:00 PM INDUSTRIAL GAS FITTER HELPER Respiratory Rate 16 08/25/2024 1:00 PM INDUSTRIAL GAS FITTER HELPER Oxygen Saturation 100% 08/25/2024 1:00 PM INDUSTRIAL GAS FITTER HELPER Inhaled Oxygen Concentration - - Weight 88 kg (194 lb 1.6 oz) 08/25/2024 8:30 AM INDUSTRIAL GAS FITTER HELPER Height 162.6 cm (5' 4) 08/24/2024 5:27 PM INDUSTRIAL GAS FITTER HELPER Body Mass Index 33.32 08/24/2024 5:27 PM INDUSTRIAL GAS FITTER HELPER Plan of Treatment Upcoming Encounters Date Type Department Care Team (Late st Contact Info) Description 09/27/2024 1:00 PM INDUSTRIAL GAS FITTER HELPER Office Visit [facility] [place] [address] [place] [phone] Jaxon Saravia MD [address] [place] [id number] Medical Devices Implanted Type Area Geothermal System Installer Device Identifier Shelf Expiration Date Model / Serial / Lot Graft Patch Vasc Xenosure Biologic 0.8x08cm 0.8p8 Implanted:Qty: 1 on 12/16/2017 by Jaxon Saravia MD at [facility] Bone/Tis rocco/Biol ogic Left: Iliac/Fem orals LEMAITRE VASCULAR IN 06/06/2023 0.8P8 / / [id number] Graft Pericardium 8x0.8cm Vascu-Guard Implanted:Qty: 1 on 10/20/2011 at [facility] Right: Arm [employer] 01/16/2016 [id number] / / [id number] Femoral Popliteal Artery Implanted:Qty: 1 on 05/03/2012 by Jaxon Saravia MD at [facility] Right: Groin 12/07/2021 [id number] / [id number] / Description:CADAVER FEMORAL ARTERY RINSED IN A AND B SOLUTION: A SOLUTION LOT #[id number] EXPIRATION DATE 01/09/2014 B SOLUTION LOT #[id number] EXPIRATION DATE 11/15/2013 Graft Propaten Taper [id number] [id number] Implanted:Qty: 1 on 08/09/2012 by Jaxon Saravia MD at [facility] Right: Leg 10/24/2015 [id number] / / [id number] Graft Propaten Taper [id number] Implanted:Qty: 1 on 06/20/2013 by Jaxon Saravia MD at [facility] Left: Groin [employer] 02/07/2017 [id number] / / [id number] Graft Pericardium 8x0.8cm Vascu-Guard Implanted:Qty: 1 on 05/08/2014 by Jaxon Saravia MD at [facility] Left: Leg [employer] 11/26/2018 [id number] / PN# [id number] / [id number] Procol Vascular Bioprosthesis Implanted:Qty: 1 on 07/02/2015 by Jaxon Saravia MD at [facility] Left: Groin 12/16/2018 [id number] -[id number] / [id number] / Procol Vascular Bioprosthesis Implanted:Qty: 1 on 08/13/2015 by Jaxon Saravia MD at [facility] Left: Groin 12/16/2018 [id number] -[id number] / [id number] / Graft Vasc Bioprosthesis Procol [id number] Implanted:Qty: 1 on 03/05/2016 by Jaxon Saravia MD at [facility] Left: Leg LEMAITRE VASCULAR IN 02/03/2019 [id number] -[id number] / [id number] / Procedures Procedure Name Priority Date/Time Associated Diagnosis Comments CBC WITH PLATELETS & DIFFERENTIAL STAT 08/25/2024 6:52 AM INDUSTRIAL GAS FITTER HELPER CBC WITH PLATELETS AND DIFFERENTIAL STAT 08/25/2024 6:52 AM INDUSTRIAL GAS FITTER HELPER INR Routine 08/25/2024 6:52 AM INDUSTRIAL GAS FITTER HELPER BASIC METABOLIC PANEL Routine 08/25/2024 6:52 AM INDUSTRIAL GAS FITTER HELPER US EXTREMITY ARTERIAL VENOUS DIALYSIS ACCESS GRAFT STAT 08/24/2024 3:25 PM INDUSTRIAL GAS FITTER HELPER BASIC METABOLIC PANEL STAT 08/24/2024 12:50 PM INDUSTRIAL GAS FITTER HELPER CBC WITH PLATELETS & DIFFERENTIAL STAT 08/24/2024 10:43 AM INDUSTRIAL GAS FITTER HELPER CBC WITH PLATELETS AND DIFFERENTIAL STAT 08/24/2024 10:43 AM INDUSTRIAL GAS FITTER HELPER INR STAT 08/24/2024 10:43 AM INDUSTRIAL GAS FITTER HELPER TROPONIN T, HIGH SENSITIVITY STAT 07/12/2024 4:23 [...] CDT LIPID PROFILE STAT 12/07/2017 12:34 PM INDUSTRIAL GAS FITTER HELPER 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 WBC Count 2.7(L) 4.0 - 11.0 10e3/uL 08/25/2024 6:58 AM INDUSTRIAL GAS FITTER HELPER [facility] RBC Count 4.40 4.40 - 5.90 10e6/uL 08/25/2024 6:58 AM INDUSTRIAL GAS FITTER HELPER [facility] Hemoglobin 11.4(L) 13.3 - 17.7 g/dL 08/25/2024 6:58 AM INDUSTRIAL GAS FITTER HELPER [facility] Hematocrit 36.5(L) 40.0 - 53.0 % 08/25/2024 6:58 AM INDUSTRIAL GAS FITTER HELPER [facility] MCV 83 78 - 100 fL 08/25/2024 6:58 AM INDUSTRIAL GAS FITTER HELPER [facility] MCH 25.9(L) 26.5 - 33.0 pg 08/25/2024 6:58 AM INDUSTRIAL GAS FITTER HELPER [facility] MCHC 31.2(L) 31.5 - 36.5 g/dL 08/25/2024 6:58 AM INDUSTRIAL GAS FITTER HELPER [facility] RDW 18.6(H) 10.0 - 15.0 % 08/25/2024 6:58 AM INDUSTRIAL GAS FITTER HELPER [facility] Platelet Count 112(L) 150 - 450 10e3/uL 08/25/2024 6:58 AM INDUSTRIAL GAS FITTER HELPER [facility] % Neutrophils 56 % 08/25/2024 6:58 AM INDUSTRIAL GAS FITTER HELPER [facility] % Lymphocytes 24 % 08/25/2024 6:58 AM INDUSTRIAL GAS FITTER HELPER [facility] % Monocytes 16 % 08/25/2024 6:58 AM INDUSTRIAL GAS FITTER HELPER [facility] % Eosinophils 3 % 08/25/2024 6:58 AM INDUSTRIAL GAS FITTER HELPER [facility] % Basophils 0 % 08/25/2024 6:58 AM INDUSTRIAL GAS FITTER HELPER [facility] % Immature Granulocytes 0 % 08/25/2024 6:58 AM INDUSTRIAL GAS FITTER HELPER [facility] NRBCs per 100 WBC 0 <1 /100 11/16/2 024 6:58 AM INDUSTRIAL GAS FITTER HELPER [facility] Absolute Neutrophils 1.5(L) 1.6 - 8.3 10e3/uL 08/25/2024 6:58 AM INDUSTRIAL GAS FITTER HELPER [facility] Absolute Lymphocytes 0.7(L) 0.8 - 5.3 10e3/uL 08/25/2024 6:58 AM INDUSTRIAL GAS FITTER HELPER [facility] Absolute Monocytes 0.4 0.0 - 1.3 10e3/uL 08/25/2024 6:58 AM INDUSTRIAL GAS FITTER HELPER [facility] Absolute Eosinophils 0.1 0.0 - 0.7 10e3/uL 08/25/2024 6:58 AM INDUSTRIAL GAS FITTER HELPER [facility] Absolute Basophils 0.0 0.0 - 0.2 10e3/uL 08/25/2024 6:58 AM INDUSTRIAL GAS FITTER HELPER [facility] Absolute Immature Granulocytes 0.0 <=0.4 10e3/uL 08/25/2024 6:58 AM INDUSTRIAL GAS FITTER HELPER [facility] Absolute NRBCs 0.0 10e3/uL 08/25/2024 6:58 AM INDUSTRIAL GAS FITTER HELPER LABORATORY Blood STRUCTURE OF RIGHT HAND / Unknown Venipuncture / Unknown 08/25/2024 6:52 AM INDUSTRIAL GAS FITTER HELPER 08/25/2024 6:56 AM INDUSTRIAL GAS FITTER HELPER Kolby Gandara MD LAB - BLOOD ORDERABLES Final Result [facility] Lab [address] (1st floor, no room number) [place] [address] * (ABNORMAL) INR (08/25/2024 6:52 AM INDUSTRIAL GAS FITTER HELPER) Only the most recent of3 resultswithin the time period is included. INR 2.01(H) 0.85 - 1.15 08/25/2024 7:07 AM INDUSTRIAL GAS FITTER HELPER LABORATORY Blood STRUCTURE OF RIGHT HAND / Unknown Venipuncture / Unknown 08/25/2024 6:52 AM INDUSTRIAL GAS FITTER HELPER 08/25/2024 6:56 AM INDUSTRIAL GAS FITTER HELPER Kolby Gandara MD LAB - BLOOD ORDERABLES Final Result [facility] Lab [address] Lab (1st floor, no room number) [place] [address], [facility] * (ABNORMAL) Basic metabolic panel (08/25/2024 6:52 AM INDUSTRIAL GAS FITTER HELPER) Only the most recent of3 resultswithin the time period is included. Sodium 128(L) 135 - 145 mmol/L 08/25/2024 7:18 AM [facility] Potassium 4.3 3.4 - 5.3 mmol/L 08/25/2024 7:18 AM [facility] Chloride 88(L) 98 - 107 mmol/L 08/25/2024 7:18 AM [facility] Carbon Dioxide (CO2) 23 22 - 29 mmol/L 08/25/2024 7:18 AM [facility] Anion Gap 17(H) 7 - 15 mmol/L 08/25/2024 7:18 AM [facility] Urea Nitrogen 57.7(H) 8.0 - 23.0 mg/dL 08/25/2024 7:18 AM [facility] Creatinine 11.75(H) 0.67 - 1.17 mg/dL 08/25/2024 7:18 AM [facility] GFR Estimate 4(L) >60 mL/min/1. 73m2 08/25/2024 7:18 AM [facility] Comment:eGFR calculated 2020 CKD-EPI equation. Calcium 8.7(L) 8.8 - 10.4 mg/dL 08/25/2024 7:18 AM [facility] Comment:Reference intervals for this test were updated on 04/24/2024 to reflect our healthy population more accurately. There may be differences in the flagging of prior results with similar values performed with this method. Those prior results can be interpreted in the context of the updated reference intervals. Glucose 92 70 - 99 mg/dL 08/25/2024 7:18 AM [facility] Blood STRUCTURE OF RIGHT HAND / Unknown Venipuncture / Unknown 08/25/2024 6:52 AM INDUSTRIAL GAS FITTER HELPER 08/25/2024 6:56 AM INDUSTRIAL GAS FITTER HELPER us Kolby Gandara MD LAB - BLOOD ORDERABLES Final Result LABORATORY [facility] Acute [facility] Lab [address] [facility] Lab (1st floor, no room number) [place] [address], [facility] * US Ext Arterial Venous Dialys Acs Graft (08/24/2024 3:25 PM INDUSTRIAL GAS FITTER HELPER) Anatomical Region Laterality Modality Vascular, Abdomen/Pelvis Ultraso und Impressions 08/24/2024 4:23 PM INDUSTRIAL GAS FITTER HELPER IMPRESSION: 1. Patent arteriovenous fistula. 2. 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 [employer] REINOSO DO Narrative 08/24/2024 4:23 PM INDUSTRIAL GAS FITTER HELPER US EXTREMITY ARTERIAL VENOUS DIALYSIS ACCESS GRAFT [...] - BLOOD ORDERABLES Final Res ult LABORATORY [facility] Acute Care Lab [address] [facility] Lab (1st floor, no room number) [place] [address] * XR Chest 2 Views (07/12/2024 3:15 AM CDT) Anatomical Region Laterality Modality Chest Digital Radiogra phy 07/12/2024 3:15 AM CDT Impressions 07/12/2024 3:18 AM CDT IMPRESSION: Low lung volumes but the lungs appear clear. Normal heart size and pulmonary vascularity. No pleural fluid or pneumothorax. Narrative 07/12/2024 3:18 AM CDT EXAM: XR CHEST 2 VIEWS LOCATION: [facility] DATE: 07/12/2024 INDICATION: ams COMPARISON: 03/11/2024. Procedure Note Pavan Sanon MD - 07/12/2024 EXAM: XR CHEST 2 VIEWS LOCATION: [facility] DATE: 07/12/2024 INDICATION: ams COMPARISON: 03/11/2024. [...] vascular malformation involving the arteries of the tejon of [place]. NECK CTA: 1. Normal configuration [...] CONTRAST, CTA HEAD NECK W CONTRAST LOCATION: [facility] DATE: 07/12/2024 INDICATION: ams and weakness. [...] ml Mismatch ratio: infinite Procedure Note Alejandra Ifnante MD - 07/17/2024 EXAM: CT HEAD W/O CONTRAST, CTA HEAD NECK W CONTRAST LOCATION: [facility] DATE: 07/12/2024 INDICATION: ams and weakness. [...] vascular malformation involving the arteries of the [place]. NECK CTA: 1. Normal configuration of [...] 1:49 am on 07/12/2024. Avery Fernando MD [facility] CT ORDERABLES Final Result * CTA Head [...] vascular malformation involving the arteries of the [place] of [place]. NECK CTA: 1. Normal configuration [...] CONTRAST, CTA HEAD NECK W CONTRAST LOCATION: [facility] DATE: 07/12/2024 INDICATION: ams and weakness. [...] CONTRAST, CTA HEAD NECK W CONTRAST LOCATION: [facility] DATE: 07/12/2024 INDICATION: ams and weakness. [...] vascular malformation involving the arteries of the [place]. NECK CTA: 1. Normal configuration of [...] findings were communicated by phone to Dr. Fernanod at 1:30 AM. CTAresults were communicated by phone to Dr. Fernando at 1:49 am on 07/12/2024. Avery Fernando MD [facility] CT ORDERABLES Final Result * CT Head [...] vascular malformation involving the arteries of the [place] of [place]. NECK CTA: 1. Normal configuration [...] CONTRAST, CTA HEAD NECK W CONTRAST LOCATION: [facility] DATE: 07/12/2024 INDICATION: ams and weakness. [...] CONTRAST, CTA HEAD NECK W CONTRAST LOCATION: [facility] DATE: 07/12/2024 INDICATION: ams and weakness. [...] vascular malformation involving the arteries of the [place]. NECK CTA: 1. Normal configuration of [...] Top Tube (07/12/2024 1:14 AM CDT) Pathologist [facility] Hold Specimen JIC 07/12/2024 2:31 AM CDT [facility] Blood BLOOD SPECIMEN / Unknown Venipuncture / Unknown 07/12/2024 1:14 AM CDT 07/12/2024 1:23 AM CDT Avery Fernando MD LAB - BLOOD ORDERABLES Final Res ult LABORATORY [facility] Lab [address] Lab (1st floor, no room number) [place] [address], [facility] * Adult Type and Screen (07/12/2024 1:14 AM CDT) ABO/RH(D) O POS 07/12/2024 1:01 AM CDT RH BLOOD BANK Antibody Screen Negative Negative 07/12/2024 1:01 AM CDT RH BLOOD BANK SPECIMEN EXPIRATION DATE [id number] 07/12/2024 1:01 AM CDT RH BLOOD BANK Blood BLOOD SPECIMEN / Unknown Venipuncture / Unknown 07/12/2024 1:14 AM CDT 07/12/2024 1:23 AM CDT Avery Fernando MD LAB - BLOOD BANK TEST ORDER Summer l Result BLOOD BANK [address] [place] [address] * Lactic acid whole blood (07/12/2024 1:14 AM CDT) Lactic Acid 0.8 0.7 - 2.0 mmol/L 07/12/2024 1:27 AM CDT LABORATORY Blood BLOOD SPECIMEN / Unknown Venipuncture / Unknown 07/12/2024 1:14 AM CDT 07/12/2024 1:23 AM CDT Avery Fernando MD LAB - BLOOD ORDERABLES Final Res ult Performing Organization Address City/[facility]/ZIP Co de Phone Number LABORATORY [facility] [address] [facility] (1st floor, no room number) [place] [address] * Hepatic function panel (07/12/2024 1:14 AM [...] BLOOD ORDERABLES Final Res ult RH LABORATORY [facility] Lab [address] Lab (1st floor, no room number) [place] [address] * Blood Culture Peripheral Blood (07/12/2024 1:14 AM CDT) Culture No Growth 07/17/2024 4:46 AM CDT [facility] Blood BLOOD SPECIMEN / Unknown Venipuncture / Unknown 07/12/2024 1:14 AM CDT 07/12/2024 1:23 AM CDT Avery Fernando MD LAB - MICRO GENERAL ORDERABLES F inal Result [facility] Inf. Diseases Diag. Lab [address] [facility] [place] [address], [facility] * (ABNORMAL) Glucose by meter (07/12/2024 1:13 AM CDT) GLUCOSE BY METER POCT 133(H) 70 - 99 mg/dL 07/12/2024 1:20 AM CDT [facility] POC Blood, venous BLOOD SPECIMEN / Unknown 07/12/2024 1:13 AM CDT 07/12/2024 1:20 AM CDT Avery Fernando MD LAB - BEAKER POCT Final Result [facility]ORATORY POC [facility] Lab [address] Lab (1st floor, no room number) [place] [address], [facility] * EKG 12-lead, tracing only (07/12/2024 12:24 AM CDT) Systolic Blood Pressure mmHg RADIOLOGY RESULTS Diastolic Blood Pressure mmHg RADIOLOGY RESULTS Ventricular Rate 65 BPM RAD IOLOGY RESULTS Atrial Rate 65 BPM RADIOLOG Y RESULTS CA Interval 234 ms RADIOLOG Y RESULTS QRS Duration 112 ms RADIOLO GY RESULTS QT 430 ms RADIOLOGY RESULTS QTc 447 ms RADIOLOGY RESULTS P [place] 53 degrees RADIOLOGY RESULTS R AXIS 10 degrees RADIOLOGY RESULTS T [place] 51 degrees RADIOLOGY RESULTS Interpretation ECG Sinus rhythm with 1st degree A-V block Otherwise normal ECG When compared with ECG of 23-May-2024 17:08, Criteria for Septal infarct are no longer Present Unconfirmed report - interpretation of this ECG is computer generated - see medical record for final interpretation Confirmed by - EMERGENCY ROOM, PHYSICIAN ([id number]), video tape editor YISSEL VELASQUEZ ([id number]) on 07/12/2024 6:51:31 [...] LAB - BLOOD ORDERABLES Fin al Result [facility] Acute [facility] Lab [address] [facility] Lab (1st floor, no room number) [place] [address], [facility] * COLONOSCOPY (03/08/2024 1:04 PM CDT) [facility] Signature COLONOSCOPY [facility] Patient Name: Herminio Victor Procedure [...] continuously. The Olympus Adult Colonoscope, Model # [id number], [id number] # [id number] was introduced through the anus and advanced [...] - STOOLS ORDERABLES Final Re sult LABORATORY [facility] Lab [address] Lab (1st floor, no room number) [place] [address] * Hepatitis C (HIM External Result) (01/04/2022 12:00 PM CDT) Hep C HIM See Scanned Document EXTERNAL LAB Comment:Nonreactive 01/04/2022 12:0 0 PM CDT Narrative EXTERNAL LAB - 01/04/2022 12:00 PM CDT LAB RESULT [facility] [address] [place] [address] us Provider Outside LAB - HIM EXTERNAL RESULT Final Result Performing Organization Address [facility] Co de Phone Number EXTERNAL LAB External Lab * (ABNORMAL) Lipid panel (12/07/2017 12:34 PM INDUSTRIAL GAS FITTER HELPER) Cholesterol 115 <200 mg/dL 12/07/2017 1:27 PM [facility] Triglycerides 84 <150 mg/dL 12/07/2017 1:27 PM [facility] HDL Cholesterol 37(L) >39 mg/dL 8 1:27 PM [facility] LDL Cholesterol Calculated 61 <100 mg/dL 12/07/2017 1:27 PM [facility] Comment:Desirable: <100 mg/d l Non HDL Cholesterol 78 <130 mg/dL 12/07/2017 1:27 PM [facility] Blood specimen (specimen) 12/07/2017 12:34 PM INDUSTRIAL GAS FITTER HELPER 12/07/2017 12:58 PM INDUSTRIAL GAS FITTER HELPER us Michele Fuentes MD LAB - BLOOD ORDERABLES Final Result [facility] [address] [place] [address], [facility] [phone] from Last 3 Months or Most Recently Relevant to Health Maintenance Insurance [place] Advance Directives For more information, please contact: [phone] * Full Code (Latest Code Status on [...] patie nt/ legal decision maker Care Teams Biochemical Engineer Relationship Specialty Start Date End Date Preet Huff PCP - General 06/24/11
--- OUTSIDE RECORDS SUMMARY | 2024-09-02 00:11 | XMS_ITS | Encounter Summary ---
Author Organization [place] Address [address] [facility] [place] [address] Care Team Providers Care Labourers Name Role Phone HuffPreet Primary Care Provider [phone] Reason for Visit * Reason Onset Date Comments Clinic Care Coordination - Follow-up 08/27/2024 Follow up after ED visit 08/24/2024. 05/28/[address] Buenrostro. Completed US Ext Arterial Venous Dialysis Acs Graft on 08/24/2024. Encounter Details Date Type Department Care Team (Late st Contact Info) Description 08/27/2024 Telephone [facility] [place] [address] [place] [phone] Rober Buenrostro MD [address] [place] [address] Clinic Care Coordination - Follow-up (Follow up [...] fci, or couch-surfing.) Patient unable to answer 08/24/2024 [...] on file Legal Sex Male 5:12 AM CENTER MEDICAL DIRECTOR Gender Identity Male 12/05/2017 10:39 AM CENTER MEDICAL DIRECTOR Sexual Orientation Not on file documented as of this encounter Miscellaneous Notes * Telephone Encounter - Rand iCfuentes - 08/30/2024 10:02 AM CST Patient is scheduled ER MEDICAL DIRECTOR * Telephone Encounter - Andria Pardo - 08/28/2024 11:13 AM CST EDMAR for Laura to call us back to schedule: NEW VASCULAR PATIENT consult with Dr. Buenrostro Please schedule this at next available Appt note: Follow up after ED visit 08/24/2024. 05/28/[address] Buenrostro. Completed US Ext Arterial Venous Dialysis Acs Graft on 08/24/2024. ER MEDICAL DIRECTOR * Telephone Encounter - Luz Cooney RN [...] Arterial Venous Dialysis Acs Graft on 08/24/2024. ER MEDICAL DIRECTOR * Telephone Encounter - Andra Gilliland - 08/27/2024 9:47 AM CST [facility] VASCULAR [facility] Who is the name of the provider?: ROBER BUENROSTRO What is the location you see this provider at/preferred location?: [place] Person calling / Facility: Laura MCKEONsecurities analyst with [facility] Phone number: [phone] Nurse call back needed: Yes or route to scheduling Reason for call: Dr Buenrostro patient was last seen 12/2019. securities analyst from [facility] is calling to schedule an appt. Patient was seen in ED on Tuesday/Sat for bleeding at his access site in his left thigh. Please call Laura MCKEON [phone] to schedule patient on a or as Patient has dialysisM, W, F Pharmacy location: n/a Outside Imaging: n/a Can we leave a detailed message on this number? YES 08/27/2024, 9:47 AM ER MEDICAL DIRECTOR documented in this encounter Plan of Treatment Upcoming Encounters Date Type Department Care Team (Late st Contact Info) Description 09/27/2024 1:00 PM CENTER MEDICAL DIRECTOR Office Visit [facility] [place] [address] [address] Rober Buenrostro MD [address] [place] [address] documented as of this encounter Visit Diagnoses Not on filedocumented in this encounter Care Teams Labourers Relationship Specialty Start Date End Date Preet Huff PCP - General 06/24/11 documented as of this encounter
--- OUTSIDE RECORDS SUMMARY | 2024-09-02 00:11 | XMS_ITS | Encounter Summary ---
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) [facility] Observation Dept [address] [place] [address] Phone: tel: Referral ID Status Reason Start Date Expiration Date Visits Re quested Visits Authorized [id number] 1 1 Encounter Details Date Type Department Care Team (Late st Contact Info) Description 08/24/2024 10:01 AM DRY ROLLER - 08/25/2024 3:22 PM DRY ROLLER Emergency [facility] Observation Dept [address] [place] [address] Mateo Gonzalez MD [facility] [address], [address] [place], [place] [id number] Martin Sanchez MD [facility] [address] [place], [place] [id number] Kolby Gandara MD [address] [place] [address] Supratherapeutic INR; 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) Discharge Disposition: Retirement Facility Social History Tobacco Use Types Packs/Day [...] on file Legal Sex Male 5:12 AM DRY ROLLER Gender Identity Male 12/05/2017 10:39 AM DRY ROLLER Sexual Orientation Not on file documented as of this encounter Last Filed Vital Signs Vital Sign Reading Time Taken Comments Blood Pressure 105/48 08/25/2024 1:00 PM DRY ROLLER Pulse 66 08/25/2024 1:00 PM DRY ROLLER Temperature 36.5 C (97.7 F) 08/25/2024 1:00 PM DRY ROLLER Respiratory Rate 16 08/25/2024 1:00 PM DRY ROLLER Oxygen Saturation 100% 08/25/2024 1:00 PM DRY ROLLER Inhaled Oxygen Concentration - - Weight 88 kg (194 lb 1.6 oz) 08/25/2024 8:30 AM DRY ROLLER Height 162.6 cm (5' 4) 08/24/2024 5:27 PM DRY ROLLER Body Mass Index 33.32 08/24/2024 5:27 PM DRY ROLLER documented in this encounter Discharge Summaries * Jacob Butler DO - 08/25/2024 3:22 PM CST [facility] Hospitalist Discharge Summary Date of Admission: 08/24/2024 [...] test are needed. Discharge Disposition Discharged to [facility] Condition at discharge: Stable Hospital Course Herminio Victor is a 59 year old male with cognitive impairment (lives at home, has DOCUMENTUM CONSULTANT), ESRD on HD (MWF), diabetes (listed but [...] minutes discharging this patient. Jacob Butler DO [facility] OBSERVATION DEPT [address] [facility] [address] Physical Exam Vital Signs: Temp: 97.7 ??F [...] mg by mouth at bedtime., Historical B Eaupmne-R-Pvdbc Acid (WESCAPS PO) Take 1 capsule by [...] Reason for Stopping: Allergies No Known Allergies ROLLER documented in this encounter Medications at Time of Discharge atorvastatin (LIPITOR) 20 MG tablet Take 20 mg by mouth at bedtime. B Szrjjuy-R-Ymfvf Acid (WESCAPS PO) Take 1 capsule by [...] I discussed his HD prescription with our collision repair technician (Bella) at the bedside. Ultrasound of the [...] medications, labs and imaging. Job Her MD [facility] - Nephrology Office phone :[phone] Pager: [phone] ROLLER * Bella Bradley RN - 08/25/2024 10:28 [...] to treatment See Adult Hemodialysis flowsheet in [facility] for further details and post assessment. Machine water alarm in place and functioning. Transducer pods intact and checked every 15min. Pt assisted with repositioning throughout dialysis treatment. Pt returned via wheelchair. Chlorine/Chloramine water system checked every 4 hours. Outpatient Dialysis at [facility] treatment report given to Jenny Bocanegra RN regarding 2.2L of fluid removed, last BP 105/48. Please remove patient dressing on AVF and AVG needle sites 24 hours after dialysis. If leaking occurs please apply a Band-Aid. Gavin Bradley RN ROLLER * Tabby Franklin RN - 08/25/2024 4:17 AM CST PRIMARY DIAGNOSIS: ESRD OUTPATIENT/OBSERVATION GOALS TO BE MET BEFORE DISCHARGE: ADLs back to baseline: No Activity and level of assistance: Ax1 gb walker Pain status: Pain free. Return to near baseline physical activity: No Pattern Grader Cutter Nurse Safe discharge environment identified: Yes Barriers to discharge: Yes Entered by: Tabby Franklin RN 08/25/2024 4:17 AM Please review provider order for any additional goals. Nurse to notify provider when observation goals have been met and patient is ready for discharge. ROLLER * Tabby Franklin RN - 08/25/2024 12:53 AM CST PRIMARY DIAGNOSIS: ESRD OUTPATIENT/OBSERVATION GOALS TO BE MET BEFORE DISCHARGE: ADLs back to baseline: No Activity and level of assistance: Ax1 gb walker Pain status: Pain free. Return to near baseline physical activity: No Pattern Grader Cutter Nurse Safe discharge environment identified: Yes Barriers to discharge: Yes Entered by: Tabby Franklin RN 08/25/2024 12:54 AM Please review provider order for any additional goals. Nurse to notify provider when observation goals have been met and patient is ready for discharge. ROLLER * Graham Enciso RT - 08/24/2024 10:12 [...] Enciso, RT on 08/24/2024 at 10:13 PM ROLLER documented in this encounter H&P Notes * Kolby Gandara MD - 08/24/2024 3:41 PM CST [facility] History and Physical - Hospitalist Service Date of Admission: 08/24/2024 Assessment & Plan Herminio Victor is a 59 year old male with cognitive impairment (lives at home, has DOCUMENTUM CONSULTANT), ESRD on HD (MWF), diabetes (listed but [...] Legally blind Full code: reviewed paperwork from [facility] where his code status is listed [...] Anticipated Tomorrow Kolby Gandara MD Hospitalist Service [facility] Securely message with Searchles (more info) Text page via Zong Paging/Directory Chief Complaint Bleeding from fistula History is obtained from the patient History of Present Illness Herminio Victor is a 59 year old male with cognitive impairment (lives at home, has DOCUMENTUM CONSULTANT), ESRD on HD (MWF), diabetes (listed but does not appear to actually have diabetes), CVA, legally blind, HLP, SHIRLEY (on CPAP), obesity, HTN, DVT (06/2011) admitted on 08/24/2024 after being set from [facility] due to bleeding from his thigh [...] new complaints. He was sent from his [facility] dialysis center today because he was [...] ESRD (end stage renal disease) (H) dialysis T--[facility] History of staph septicemia 12/20/2015 [...] REVISION FISTULA ARTERIOVENOUS LOWER EXTREMITY; Surgeon: Rober Sarvaia MD; Location: [place] REVISION FISTULA ARTERIOVENOUS LOWER [...] Last Dose Informant Patient Reported? Taking? B Ejsbkpu-H-Zmnue Acid (WESCAPS PO) 08/23/2024 Yes Yes Sig: [...] Pulse: 79 Resp: 16 SpO2: 94 % V7Lijdae: None (Room air) Weight: 0 lbs 0 [...] up to 3.0 cm, previously 2.0 cm. ROLLER documented in this encounter Consult Notes * Barbara Kirkpatrick S, MEDICAL LAB ASSISTANT - 08/25/2024 1:55 PM CSTAssociated Order(s): CARE [...] Communication Assessment Patient's communication style: spoken language (Bruneian or Bilingual) Hearing Difficulty or Deaf: no [...] Home Health Aid Community Resources: County Worker, DOCUMENTUM CONSULTANT, Transportation Services, OP Dialysis (Mom's Meals) Equipment [...] Depression: Not at risk (05/22/2020) Received from [employer] [facility] PHQ-2 PHQ-2 Score: 0 Housing Stability: Unknown (08/24/2024) Housing Stability Do you have housing? : Patient unable to answer Are you worried about losing your housing?: Patient unable to answer Tobacco Use: Medium Risk (06/07/2024) Received from [facility] Patient History Smoking Tobacco Use: Never [...] Social Connections: Socially Integrated (03/20/2024) Received from [employer] [facility] Social Connections Do you often feel [...] No Current Concerns Values/Beliefs: Spiritual, Cultural Beliefs, Mandaeism Practices, Values that affect care: no Values/Beliefs Comment: Latter-Day Discussed ???Partnership in Safe Discharge Planning??? document [...] his chart) and receives 8 hours of DOCUMENTUM CONSULTANT with nurses that come in every 3 months. Arianna stated she is in the process of becoming pt's legal guardian but does not have paperwork to send us because it hasn't officially gone through the court yet. Arianna's sister, pt's aunt, is the POA. Pt's mother, Arianna told SW that he uses [employer] transportation and requested we arrange for them to pick him up if medically ready for discharge today. Next Steps: SW will arrange transportation for discharge and remain available for any other needs that arise before discharge. Care Management Discharge Note Discharge Date: 08/25/2024 Discharge Disposition: Home with help/services Discharge Services: DOCUMENTUM CONSULTANT Discharge Transportation: agency Private pay costs discussed: transportation costs PAS Confirmation Code: N/A Education Provided on the Discharge Plan: Yes Persons Notified of Discharge Plans: Patient, patient's mother Patient/Family in Agreement with the Plan: Yes Handoff Referral Completed: No, handoff not indicated or clinically appropriate Additional Information: SULY tried arranging transportation through [employer] per his mother, Arianna's request but they are closedon the weekends. SW spoke with Arianna about this and informed her of the cost of a wheelchair ride through [facility]. Arianna was agreeable. SW scheduled a ride through [facility] to orange picker machine operator pt this afternoon between 1430 and 1520. [facility] Inpatient Care Coordination [facility] [phone] ROLLER * Job Her MD - 08/24/2024 4:42 PM CSTAssociated Order(s): NEPHROLOGY IP CONSULT RENAL CONSULTATION NOTE REFERRING MD: Kolby Gandara MD REASON FOR CONSULTATION: ESRD HPI: 59 y.o gentleman with ESRD, who was sent in from his dialysis unit in [place] due to bleeding from his L thigh [...] surgery. IRN is elevated ~ 5.8. Dr. Ramasy reviewed his record. She wonders why he [...] ESRD (end stage renal disease) (H) dialysis T-[facility] History of staph septicemia 12/20/2015 [...] file Other Topics Concern Parent/sibling w/ CABG, DC or angioplasty before 65F 55M? Not Asked [...] Social Connections: Socially Integrated (03/20/2024) Received from [employer] [facility] Social Connections Do you often feel [...] access # HD tomorrow Job Her MD [facility] - Nephrology Office Pager: [phone] ROLLER documented in this encounter ED Notes * Raquel Engle RN - 08/24/2024 2:10 PM CST Bed: ED23 Expected date: Expected time: Means of arrival: Comments: ED37 ROLLER * Eugenia Mackay RN - 08/24/2024 1:48 PM CST [facility] ED Nurse Handoff Report ED Chief [...] bed. Lift room needed: No. Bariatric: No Catcher Filter Tip Needed: No Isolation: No. Infection: Not Applicable. [...] Nurse Name: Eugenia Mackay RN 1:48 PM ROLLER * Mateo Gonzalez MD - 08/24/2024 11:15 [...] ESRD (end stage renal disease) (H) dialysis T-[facility] History of staph septicemia 12/20/2015 Hyperkalemia Hyperlipemia Hyperlipidaemia Hypertension Hypertension Kidney disease Kidney disease Orthostasis Retinopathy Sleep apnea CPAP Syncope Medications B Dbqulgi-P-Pwavo Acid (WESCAPS PO) calcium acetate (PHOSLO) 667 [...] upper and lower extremities. Normal finger-nose and enzp-as-oolv. Diagnostics Lab Results Labs Ordered and Resulted [...] Medical Decision Making / Diagnosis [facility] Diagnoses: None MIPS None MDM Herminio Victor [...] MD Carlos Gordon Kevin, MD 08/24/24 1349 ROLLER * Lisa Gill RN - 08/24/2024 10:07 AM CST Images from the original note were not included. Patient arrives via EMS from [facility] where patient was scheduled for dialysis [...] Cognitive/Neuro/Behavioral WDL Cognitive/Neuro/Behavioral WDL X mental handicap ROLLER * Lesley Avalos RN - 08/24/2024 10:01 AM CST Bed: ED37 Expected date: 08/24/24 Expected time: Means of arrival: Ambulance Comments: [place] [address] ROLLER documented in this encounter Miscellaneous Notes * Plan of Care - Barbara Kirkpatrick BSW - 08/25/2024 1:57 PM CST Goal Outcome Evaluation: Plan of Care Reviewed With: parent Overall Patient Progress: improvingOverall Patient Progress: improving Outcome Evaluation: Discharge home to mother's house with DOCUMENTUM CONSULTANT services. ROLLER * Pharmacy-Anticoagulation Service - Zuleyka Hopkins [facility] - 08/25/2024 1:22 PM DRY ROLLER Images from the original note were not [...] during the last 7 days: 5 mg ROLLER * Plan of Care - Isis Bocanegra RN - 08/25/2024 12:11 PM CST PRIMARY DIAGNOSIS: bleeding, high INR OUTPATIENT/OBSERVATION GOALS TO BE MET BEFORE DISCHARGE: ADLs back to baseline: Yes Activity and level of assistance: Up with standby assistance. Pain status: Pain free. Return to near baseline physical activity: Yes Pattern Grader Cutter Nurse Safe discharge environment identified: No Barriers [...] 1 assist to scale and to wheelchair, ROLLER * Plan of Care - Isis Bocanegra RN - 08/25/2024 7:37 AM CST PRIMARY DIAGNOSIS: INR increased OUTPATIENT/OBSERVATION GOALS TO BE MET BEFORE DISCHARGE: ADLs back to baseline: No Activity and level of assistance: Up with maximum assistance. Consider SW and/or PT evaluation. Pain status: Pain free. Return to near baseline physical activity: No Pattern Grader Cutter Nurse Safe discharge environment identified: No Barriers [...] diet, INR 2.01 today and no bleeding ROLLER * Plan of Care - Tabby Franklin [...] Return to near baseline physical activity: No Pattern Grader Cutter Nurse Safe discharge environment identified: Yes Barriers [...] for Transition of Care Outcome: Not Progressing ROLLER * Care Plan - Farzad Cortés RN - 08/24/2024 8:00 PM CST PRIMARY DIAGNOSIS:ESRD OUTPATIENT/OBSERVATION GOALS TO BE MET BEFORE DISCHARGE: ADLs back to baseline: No Activity and level of assistance: Ax1 walker GB Pain status: Pain free. Return to near baseline physical activity: No Pattern Grader Cutter Nurse Safe discharge environment identified: Yes Barriers to discharge: Yes Entered by: Farzad Cortés RN 08/24/2024 Please review provider order for any additional goals. Nurse to notify provider when observation goals have been met and patient is ready for discharge. Alert and oriented x4,VSS on RA,denies pain,tolerated renal diet,no iv access,A- V fistula left thigh intact clean and dry, ROLLER * Care Plan - Farzad Cortés RN - 08/24/2024 6:00 PM CST ROOM # [id number] Living Situation (if not independent, order SW consult):Home with mother Facility name: training personnel supervisor: Mother Activity level at baseline: walker Activity [...] Discussed discharge goals and expectations with patient/family. ROLLER * Pharmacy-Admission Medication History - Joshua Wolf, [facility] - 08/24/2024 3:08 PM CST Pharmacist Admission Medication History Admission medication history is complete. The information provided in this note is only as accurateas the sources available at the time of the update. Information Source(s): Family member via phone Changes made to HAIRSPRING VIBRATOR medication list: Added: atorvastatin Deleted: metoprolol Changed: phoslo, protonix, senokot Allergies reviewed with patient and updates made in EHR: yes Medication History Completed By: Joshua Wolf RPH 08/24/2024 3:08 PM HAIRSPRING VIBRATOR Med List Medication Sig Last Dose/Taking atorvastatin (LIPITOR) 20 MG tablet Take 20 mg by mouth at bedtime. 08/23/2024 Bedtime B Rzoidld-T-Ruwng Acid (WESCAPS PO) Take 1 capsule by [...] dose on Sat and Sun 08/23/2024 Evening ROLLER documented in this encounter Plan of Treatment Upcoming Encounters Date Type Department Care Team (Late st Contact Info) Description 09/27/2024 1:00 PM DRY ROLLER Office Visit [facility] [place] [address] [place] [phone] Rober Saravia MD [address] [place] [address] Scheduled Orders Name Type Priority Associated Diagnoses Orde r Schedule EKG 12-lead, tracing only EKG Routine Enter condition for order release in comments for 1 Occurrences starting 08/25/2024 documented as of this encounter Procedures Procedure Name Priority Date/Time Associated Diagnosis Comments CBC WITH PLATELETS AND DIFFERENTIAL STAT 08/25/2024 6:52 AM DRY ROLLER CBC WITH PLATELETS & DIFFERENTIAL STAT 08/25/2024 6:52 AM DRY ROLLER INR Routine 08/25/2024 6:52 AM DRY ROLLER BASIC METABOLIC PANEL Routine 08/25/2024 6:52 AM DRY ROLLER US EXTREMITY ARTERIAL VENOUS DIALYSIS ACCESS GRAFT STAT 08/24/2024 3:25 PM DRY ROLLER BASIC METABOLIC PANEL STAT 08/24/2024 12:50 PM DRY ROLLER CBC WITH PLATELETS AND DIFFERENTIAL STAT 08/24/2024 10:43 AM DRY ROLLER CBC WITH PLATELETS & DIFFERENTIAL STAT 08/24/2024 10:43 AM DRY ROLLER INR STAT 08/24/2024 10:43 AM DRY ROLLER documented in this encounter Results * (ABNORMAL) CBC with platelets and differential (08/25/2024 6:52 AM DRY ROLLER) WBC Count 2.7(L) 4.0 - 11.0 10e3/uL 08/25/2024 6:58 AM DRY ROLLER [facility] RBC Count 4.40 4.40 - 5.90 10e6/uL 08/25/2024 6:58 AM DRY ROLLER [facility] Hemoglobin 11.4(L) 13.3 - 17.7 g/dL 08/25/2024 6:58 AM DRY ROLLER [facility] Hematocrit 36.5(L) 40.0 - 53.0 % 08/25/2024 6:58 AM DRY ROLLER [facility] MCV 83 78 - 100 fL 08/25/2024 6:58 AM DRY ROLLER [facility] MCH 25.9(L) 26.5 - 33.0 pg 08/25/2024 6:58 AM DRY ROLLER [facility] MCHC 31.2(L) 31.5 - 36.5 g/dL 08/25/2024 6:58 AM DRY ROLLER [facility] RDW 18.6(H) 10.0 - 15.0 % 08/25/2024 6:58 AM DRY ROLLER [facility] Platelet Count 112(L) 150 - 450 10e3/uL 08/25/2024 6:58 AM DRY ROLLER [facility] % Neutrophils 56 % 08/25/2024 6:58 AM DRY ROLLER [facility] % Lymphocytes 24 % 08/25/2024 6:58 AM DRY ROLLER [facility] % Monocytes 16 % 08/25/2024 6:58 AM DRY ROLLER [facility] % Eosinophils 3 % 08/25/2024 6:58 AM DRY ROLLER [facility] % Basophils 0 % 08/25/2024 6:58 AM DRY ROLLER [facility] % Immature Granulocytes 0 % 08/25/2024 6:58 AM DRY ROLLER [facility] NRBCs per 100 WBC 0 <1 /100 024 6:58 AM DRY ROLLER [facility] Absolute Neutrophils 1.5(L) 1.6 - 8.3 10e3/uL 08/25/2024 6:58 AM DRY ROLLER [facility] Absolute Lymphocytes 0.7(L) 0.8 - 5.3 10e3/uL 08/25/2024 6:58 AM DRY ROLLER [facility] Absolute Monocytes 0.4 0.0 - 1.3 10e3/uL 08/25/2024 6:58 AM DRY ROLLER [facility] Absolute Eosinophils 0.1 0.0 - 0.7 10e3/uL 08/25/2024 6:58 AM DRY ROLLER [facility] Absolute Basophils 0.0 0.0 - 0.2 10e3/uL 08/25/2024 6:58 AM DRY ROLLER [facility] Absolute Immature Granulocytes 0.0 <=0.4 10e3/uL 08/25/2024 6:58 AM DRY ROLLER [facility] Absolute NRBCs 0.0 10e3/uL 08/25/2024 6:58 AM DRY ROLLER [facility] Blood STRUCTURE OF RIGHT HAND / Unknown Venipuncture / Unknown 08/25/2024 6:52 AM DRY ROLLER 08/25/2024 6:56 AM DRY ROLLER Kolby Gandara MD LAB - BLOOD ORDERABLES Final Result LABORATORY [facility] Acute Care Lab [address] Lab (1st floor, no room number) [place] [address] * (ABNORMAL) INR (08/25/2024 6:52 AM DRY ROLLER) Pathologist [facility] INR 2.01(H) 0.85 - 1.15 08/25/2024 7:07 AM DRY ROLLER LABORATORY Blood STRUCTURE OF RIGHT HAND / Unknown Venipuncture / Unknown 08/25/2024 6:52 AM DRY ROLLER 08/25/2024 6:56 AM DRY ROLLER Kolby Gandara MD LAB - BLOOD ORDERABLES Final Result Performing Organization Address [facility] Co de Phone Number LABORATORY [facility] Care Lab [address] Lab (1st floor, no room number) [place] [phone] * (ABNORMAL) Basic metabolic panel (08/25/2024 6:52 AM DRY ROLLER) Pathologist [facility] Sodium 128(L) 135 - 145 mmol/L 08/25/2024 7:18 AM [facility] Potassium 4.3 3.4 - 5.3 mmol/L 08/25/2024 7:18 AM [facility] Chloride 88(L) 98 - 107 mmol/L 08/25/2024 7:18 AM [facility] Carbon Dioxide (CO2) 23 22 - 29 mmol/L 08/25/2024 7:18 AM [facility] Anion Gap 17(H) 7 - 15 mmol/L 08/25/2024 7:18 AM [facility] Urea Nitrogen 57.7(H) 8.0 - 23.0 mg/dL 08/25/2024 7:18 AM [facility] Creatinine 11.75(H) 0.67 - 1.17 mg/dL 08/25/2024 7:18 AM [facility] GFR Estimate 4(L) >60 mL/min/1. 73m2 08/25/2024 7:18 AM [facility] Comment:eGFR calculated usin 2020 CKD-EPI equation. Calcium 8.7(L) 8.8 - 10.4 mg/dL 08/25/2024 7:18 AM DRY ROLLER [facility] Comment:Reference intervals for this test were updated on 04/24/2024 to reflect our healthy population more accurately. There may be differences in the flagging of prior results with similar values performed with this method. Those prior results can be interpreted in the context of the updated reference intervals. Glucose 92 70 - 99 mg/dL 08/25/2024 7:18 AM DRY ROLLER [facility] Blood STRUCTURE OF RIGHT HAND / Unknown Venipuncture / Unknown 08/25/2024 6:52 AM DRY ROLLER 08/25/2024 6:56 AM DRY ROLLER us Kolby Gandara MD LAB - BLOOD ORDERABLES Final Result [facility] [address] Lab (1st floor, no room number) [place] [address] * US Ext Arterial Venous Dialys Acs Graft (08/24/2024 3:25 PM DRY ROLLER) Anatomical Region Laterality Modality Vascular, Abdomen/Pelvis Ultraso und Impressions 08/24/2024 4:23 PM DRY ROLLER IMPRESSION: 1. Patent arteriovenous fistula. 2. 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 [facility] REINOSO DO Narrative 08/24/2024 4:23 PM DRY ROLLER US EXTREMITY ARTERIAL VENOUS DIALYSIS ACCESS GRAFT [...] REINOSO DO us Mateo Gonzalez MD [facility] ORDERABLES Final Result * (ABNORMAL) Basic metabolic panel (08/24/2024 12:50 PM DRY ROLLER) Sodium 130(L) 135 - 145 mmol/L 08/24/2024 1:18 PM DRY ROLLER [facility] Potassium 3.7 3.4 - 5.3 mmol/L 08/24/2024 1:18 PM DRY ROLLER LABORATORY Chloride 90(L) 98 - 107 mmol/L 08/24/2024 1:18 PM DRY ROLLER [facility] Carbon Dioxide (CO2) 24 22 - 29 mmol/L 08/24/2024 1:18 PM DRY ROLLER [facility] Anion Gap 16(H) 7 - 15 mmol/L 08/24/2024 1:18 PM DRY ROLLER [facility] Urea Nitrogen 46.6(H) 8.0 - 23.0 mg/dL 08/24/2024 1:18 PM DRY ROLLER [facility] Creatinine 10.62(H) 0.67 - 1.17 mg/dL 08/24/2024 1:18 PM DRY ROLLER [facility] GFR Estimate 5(L) >60 mL/min/1. 73m2 08/24/2024 1:18 PM DRY ROLLER [facility] Comment:eGFR calculated us2020 CKD-EPI equation. Calcium 9.0 8.8 - 10.4 mg/dL 08/24/2024 1:18 PM DRY ROLLER [facility] Comment:Reference intervals for this test were updated on 04/24/2024 to reflect our healthy population more accurately. There may be differences in the flagging of prior results with similar values performed with this method. Those prior results can be interpreted in the context of the updated reference intervals. Glucose 105(H) 70 - 99 mg/dL 08/24/2024 1:18 PM DRY ROLLER [facility] Blood STRUCTURE OF LEFT WRIST REGION / Unknown Venipuncture / Unknown 08/24/2024 12:50 PM DRY ROLLER 08/24/2024 12:57 PM DRY ROLLER us Mateo Gonzalez MD LAB - BLOOD ORDERABLES Final Res ult [facility] LABORATORY [facility] [address] Lab (1st floor, no room number) [place] [phone] * (ABNORMAL) CBC with platelets and differential (08/24/2024 10:43 AM DRY ROLLER) WBC Count 2.9(L) 4.0 - 11.0 10e3/uL 08/24/2024 10:52 AM DRY ROLLER [facility] RBC Count 4.53 4.40 - 5.90 10e6/uL 08/24/2024 10:52 AM DRY ROLLER [facility] Hemoglobin 11.6(L) 13.3 - 17.7 g/dL 08/24/2024 10:52 AM DRY ROLLER [facility] Hematocrit 37.9(L) 40.0 - 53.0 % 08/24/2024 10:52 AM [facility] MCV 84 78 - 100 fL 08/24/2024 10:52 AM [facility] MCH 25.6(L) 26.5 - 33.0 pg 08/24/2024 10:52 AM [facility] MCHC 30.6(L) 31.5 - 36.5 g/dL 08/24/2024 10:52 AM [facility] RDW 19.0(H) 10.0 - 15.0 % 08/24/2024 10:52 AM [facility] Platelet Count 127(L) 150 - 450 10e3/uL 08/24/2024 10:52 AM [facility] % Neutrophils 55 % 08/24/2024 10:52 AM [facility] % Lymphocytes 25 % 08/24/2024 10:52 AM [facility] % Monocytes 16 % 08/24/2024 10:52 AM [facility] % Eosinophils 3 % 08/24/2024 10:52 AM [facility] % Basophils 0 % 08/24/2024 10:52 AM [facility] % Immature Granulocytes 1 % 08/24/2024 10:52 AM [facility] NRBCs per 100 WBC 0 <1 /100 024 10:52 AM [facility] Absolute Neutrophils 1.6 1.6 - 8.3 10e3/uL 08/24/2024 10:52 AM [facility] Absolute Lymphocytes 0.7(L) 0.8 - 5.3 10e3/uL 08/24/2024 10:52 AM [facility] Absolute Monocytes 0.5 0.0 - 1.3 10e3/uL 08/24/2024 10:52 AM [facility] Absolute Eosinophils 0.1 0.0 - 0.7 10e3/uL 08/24/2024 10:52 AM [facility] Absolute Basophils 0.0 0.0 - 0.2 10e3/uL 08/24/2024 10:52 AM [facility] Absolute Immature Granulocytes 0.0 <=0.4 10e3/uL 08/24/2024 10:52 AM [facility] Absolute NRBCs 0.0 10e3/uL 08/24/2024 10:52 AM [facility] Blood STRUCTURE OF RIGHT HAND / Unknown Venipuncture / Unknown 08/24/2024 10:43 AM DRY ROLLER 08/24/2024 10:49 AM DRY ROLLER us Mateo Gonzalez MD LAB - BLOOD ORDERABLES Final Res ult Performing Organization Address City/State/[facility] Co de Phone Number LABORATORY [facility] Acute Care Lab [address] Lab (1st floor, no room number) [place] [address] * (ABNORMAL) INR (08/24/2024 10:43 AM DRY ROLLER) INR 5.82(HH) 0.85 - 1.15 08/24/2024 11:35 AM [facility] Blood STRUCTURE OF RIGHT HAND / Unknown Venipuncture / Unknown 08/24/2024 10:43 AM DRY ROLLER 08/24/2024 10:49 AM DRY ROLLER us Mateo Gonzalez MD LAB - BLOOD ORDERABLES Final Res ult [facility] Acute Care Lab [address] [facility] Lab (1st floor, no room number) [place] [address], [facility] documented in this encounter Visit [...] Tue08/24/24 at 2200 $Given 08/24/2024 9:36 PM DRY ROLLER 20 mg calcium acetate (PHOSLO) capsule 1,334 mg 1,334 mg, Oral, 3 TIMES DAILY WITH MEALS, First dose on Tue08/24/24 at 1800, Best if given with meals. $Given 08/25/2024 1:59 PM DRY ROLLER 1,334 mg $Given 08/25/2024 7:55 AM DRY ROLLER 1,334 mg $Given 08/24/2024 6:21 PM DRY ROLLER 1,334 mg lidocaine 1 % 0.5 mL [...] DO NOT CRUSH. $Given 08/25/2024 7:55 AM DRY ROLLER 40 mg $Given 08/24/2024 6:21 PM DRY ROLLER 40 mg phytonadione (MEPHYTON/VITAMIN K) 1 MG/ML oral solution 5 mg 5 mg, Oral, ONCE, On Tue08/24/24 at 1155, For 1 dose $Given 08/24/2024 12:31 PM DRY ROLLER 5 mg prochlorperazine (COMPAZINE) injection 10 mg [...] for loose stools. $Given 08/25/2024 7:55 AM DRY ROLLER 2 tablets $Given 08/24/2024 6:22 PM DRY ROLLER 2 tablets sodium chloride 0.9% BOLUS 100-150 [...] Dialyzer), Dialysis $New Bag 08/25/2024 10:51 AM DRY ROLLER 200 mLs sodium chloride 0.9% BOLUS 250 mL Intravenous, 250 mL, ONCE IN DIALYSIS/CRRT, On 08/25/24 at 0800, For 1 dose, For patient prime during dialysis, Dialysis $New Bag 08/25/2024 10:51 AM DRY ROLLER 250 mLs Stop Heparin 60 minutes before end of treatment CONTINUOUS PRN, Starting on 08/25/24 at 0751, Until 08/25/24 at 1722, Stop Heparin 60 minutes before end of treatment, Dialysis documented in this encounter Active and Recently Administered Medications Times are shown in DRY ROLLER. Scheduled Medication Order 08/23/2024 08/24/2024 08/25/2024 atorvastatin [...] stools. documented in this encounter Care Teams Partner Management Consultant Relationship Specialty Start Date End Date Preet Huff PCP - General 06/24/11 documented as of this encounter
--- OUTSIDE RECORDS SUMMARY | 2024-09-02 00:12 | XMS_ITS | Encounter Summary ---
Author Organization [facility] Address [address] [facility] [place] [address] Care Team Providers Care Quality Assurance Project Manager Name Role Phone Preet Huff Hans Primary Care Provider [phone] Reason for Visit * Reason Comments Altered Mental Status Encounter Details Date Type Department Care Team (Late st Contact Info) Description 07/12/2024 12:18 AM CDT - 07/12/2024 7:24 AM CDT [facility] Emergency Dept [address] [place] [id number] [phone] Avery Fernando MD [facility] [address] [place], [place] [id number] Rand Schwab MD [facility] [address] [id number] Transient hypotension; ESRD (end stage renal disease) [...] in an abandoned building, in an overnight mcc, or couch-surfing.) Patient unable to answer 05/30/2024 [...] on file Legal Sex Male 5:12 AM RECEIVING ROOM CLERK Gender Identity Male 12/05/2017 10:39 AM RECEIVING ROOM CLERK Sexual Orientation Not on file documented [...] encounter Medications at Time of Discharge B Zxzapis-W-Nbfjb Acid (WESCAPS PO) Take 1 capsule by [...] Attempted to call patient's aunt, Thelma, at [phone], no answer. * Alecia Cano MD - 07/12/2024 1:14 AM CDT [facility] Stroke Telephone Note I was called by [...] To page me or covering stroke neurology garment steamer, click here: AMCOM Choose Dietary Aide Teacher tab at top, then select NEUROLOGY/ALL SITES [...] Sleep apnea CPAP ??? 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 NECK CTA: 1. Normal configuration [...] vascular malformation involving the arteries of the jena of [place]. NECK CTA: 1. Normal configuration [...] with 1st degree AVB Rate 65 bpm. IN interval 234 ms. QRS duration 112 ms. QT/QTc 430/447 ms. P-R-T axes 53 10 51. Independent Interpretation None ED Course Medications Administered Medications - No data to display Procedures Procedures Discussion of Management Neurology, stroke neurology ED Course 005 Exam Additional Documentation None Medical Decision Making / Diagnosis [facility] Diagnoses: None MIPS None MDM Herminio [...] RN - 07/12/2024 12:18 AM CDT Bed: [facility] Expected date: Expected time: Means of arrival: Comments: 3 ED RNs @2300, 11 pts max documented in this encounter Plan of Treatment Upcoming Encounters Date Type Department Care Team (Late st Contact Info) Description 09/27/2024 1:00 PM RECEIVING ROOM CLERK Office Visit [facility] [address] [place] [phone] Rober Saravia MD [address] [place] [address] documented as of this encounter Procedures Procedure [...] LAB - BLOOD ORDERABLES Final Res ult [facility] Acute Care Lab [address] [facility] Lab (1st floor, no room number) [place] [address] * XR Chest 2 Views (07/12/2024 3:15 [...] pleural fluid or pneumothorax. 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 NECK CTA: 1. Normal configuration [...] vascular malformation involving the arteries of the jena ofWillis. NECK CTA: 1. Normal configuration of [...] at 1:49 am on 07/12/2024. us Avery Fenrando MD IMG CT ORDERABLES Final Result * [...] vascular malformation involving the arteries of the jena of [place]ars[place]. NECK CTA: 1. Normal configuration [...] vascular malformation involving the arteries of the jena ofWillis. NECK CTA: 1. Normal configuration of [...] 1:49 am on 07/12/2024. Avery Fernando MD [facility] [place] ORDERABLES Final Result * CT Head [...] vascular malformation involving the arteries of the jena of [place]. NECK CTA: 1. Normal configuration [...] vascular malformation involving the arteries of the jena ofWillis. NECK CTA: 1. Normal configuration of [...] CDT RH BLOOD BANK SPECIMEN EXPIRATION DATE [id number] 07/12/2024 1:01 AM CDT RH BLOOD BANK Blood BLOOD SPECIMEN / Unknown Venipuncture / Unknown 07/12/2024 1:14 AM CDT 07/12/2024 1:23 AM CDT Avery Fernando MD LAB - BLOOD BANK TEST ORDER Summer l Result BLOOD BANK [address] [place] [address] * Extra Red Top Tube (07/12/2024 1:14 AM CDT) Hold Specimen JIC 07/12/2024 2:31 AM CDT RH LABORATORY Blood BLOOD SPECIMEN / Unknown Venipuncture / Unknown 07/12/2024 1:14 AM CDT 07/12/2024 1:23 AM CDT us Avery Fernando MD LAB - BLOOD ORDERABLES Final Res ult RH LABORATORY [facility] Acute Care Lab [address] [facility] Lab (1st floor, no room number) [place] [phone] * (ABNORMAL) CBC with platelets [...] BLOOD ORDERABLES Final Res ult RH LABORATORY [facility] Acute Care Lab [address] Lab (1st floor, no room number) [place] [address], [facility] * (ABNORMAL) INR (07/12/2024 1:14 AM CDT) INR 4.68(H) 0.85 - 1.15 07/12/2024 1:49 AM CDT RH LABORATORY Blood BLOOD SPECIMEN / Unknown Venipuncture / Unknown 07/12/2024 1:14 AM CDT 07/12/2024 1:23 AM CDT Avery Fernando MD LAB - BLOOD ORDERABLES Final Res ult RH LABORATORY [facility] Acute Care Lab [address] Lab (1st floor, no room number) [place] [address] * Blood Culture Peripheral Blood (07/12/2024 1:14 AM CDT) Culture No Growth 07/17/2024 4:46 AM CDT [facility] Blood BLOOD SPECIMEN / Unknown Venipuncture / Unknown 07/12/2024 1:14 AM CDT 07/12/2024 1:23 AM CDT Avery Fernando MD LAB - MICRO GENERAL ORDERABLES F inal Result [facility] LABORAT[facility] Inf. Diseases Diag. Lab [address] [facility] [place] [address] * Hepatic function panel (07/12/2024 [...] - BLOOD ORDERABLES Final Res ult LABORATORY [facility] Acute Care Lab [address] Lab (1st floor, no room number) [place] [phone] [place] [address] * Lactic acid whole blood (07/12/2024 1:14 AM CDT) Lactic Acid 0.8 0.7 - 2.0 mmol/L 07/12/2024 1:27 AM CDT LABORATORY Blood BLOOD SPECIMEN / Unknown Venipuncture / Unknown 07/12/2024 1:14 AM CDT 07/12/2024 1:23 AM CDT Avery Fernando MD LAB - BLOOD ORDERABLES Final Res ult LABORATORY [facility] [address] [facility], no room number) [address] * (ABNORMAL) Troponin T, High Sensitivity [...] - BLOOD ORDERABLES Final Res ult LABORATORY [facility] Lab [address] Lab (1st floor, no room number) [place] [address], [facility] * (ABNORMAL) Basic metabolic panel [...] - BLOOD ORDERABLES Final Res ult LABORATORY [facility] Lab [address] Lab (1st floor, no room number) [place] [address] * (ABNORMAL) Glucose by meter (07/12/2024 1:13 AM CDT) GLUCOSE BY METER POCT 133(H) 70 - 99 mg/dL 07/12/2024 1:20 AM CDT LABORATORY POC Blood, venous BLOOD SPECIMEN / Unknown 07/12/2024 1:13 AM CDT 07/12/2024 1:20 AM CDT us Avery Fernando MD LAB - BEAKER POCT Final Result Performing Organization Address City/[facility]/ZIP Co de Phone Number LABORATORY [facility] Lab [address] Lab (1st floor, no room number) [place] [phone], [facility] * EKG 12-lead, tracing only (07/12/2024 12:24 AM CDT) Systolic Blood Pressure mmHg RADIOLOGY RESULTS Diastolic Blood Pressure mmHg RADIOLOGY RESULTS Ventricular Rate 65 BPM RAD IOLOGY RESULTS Atrial Rate 65 BPM RADIOLOG Y RESULTS IN Interval 234 ms RADIOLOG Y RESULTS QRS Duration 112 ms RADIOLO GY RESULTS QT 430 ms RADIOLOGY RESULTS QTc 447 ms RADIOLOGY RESULTS P [place] 53 degrees RADIOLOGY RESULTS R AXIS 10 degrees RADIOLOGY RESULTS T [place] 51 degrees RADIOLOGY RESULTS Interpretation ECG Sinus rhythm with 1st degree A-V block Otherwise normal ECG When compared with ECG of 23-May-2024 17:08, Criteria for Septal infarct are no longer Present Unconfirmed report - interpretation of this ECG is computer generated - see medical record for final interpretation Confirmed by - EMERGENCY ROOM, PHYSICIAN ([id number]), sports editor YISSEL VELASQUEZ ([id number]) on 07/12/2024 6:51:31 [...] scan. documented in this encounter Care Teams Quality Assurance Project Manager Relationship Specialty Start Date End Date Preet Huff PCP - General 06/24/11 documented as of this encounter
--- OUTSIDE RECORDS SUMMARY | 2024-09-02 00:12 | XMS_ITS | Encounter Summary ---
Author Organization [facility] Address [address] [place] [address] Care Team Providers Care Fitness Center Attendant Name Role Phone HuffPreet cool Primary Care Provider [phone] Encounter Details Date Type Department Care Team (Late st Contact Info) Description 12/28/2023 Medical Correspondence [facility] Health Information Management [address] [place] [address] Scan, Non-Provider DAVIAT Social History Tobacco Use [...] on file Legal Sex Male 5:12 AM TECHNICAL TRAINING SPECIALIST Gender Identity Male 12/05/2017 10:39 AM TECHNICAL TRAINING SPECIALIST Sexual Orientation Not on file documented as of this encounter Plan of Treatment Upcoming Encounters Date Type Department Care Team (Late st Contact Info) Description 09/27/2024 1:00 PM TECHNICAL TRAINING SPECIALIST Office Visit [facility] [address] [place] [phone] Jaxon Saravia MD [address] [place] [address] documented as of this encounter Visit Diagnoses Not on filedocumented in this encounter Care Teams Fitness Center Attendant Relationship Specialty Start Date End Date Preet Huff PCP - General 06/24/11 documented as of this encounter
--- OUTSIDE RECORDS SUMMARY | 2024-09-02 00:12 | XMS_ITS | Encounter Summary ---
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 accepts [address] Arianna Goodman (Mother) [phone] (Home Phone) Updated mom Additional Documentation None [...] Expected time: Means of arrival: Ambulance Comments: [place] 332 documented in this encounter Miscellaneous Notes * Plan of Care - Rand Ochoa OTR - 05/30/2024 5:21 PM CDT Occupational Therapy Discharge Summary Reason for therapy discharge: Discharged to home with home therapy. Progress towards therapy goal(s). See goals on Care Plan in [facility] electronic health record for goal details. Goals partially met. Barriers to achieving goals: discharge from facility. Therapy recommendation(s): Continued therapy is recommended. Rationale/Recommendations: Patient appears safe and able todischarge home with intermittent assist from family with higher level IADLS (just like baseline). Pt wouldbeenfit from HHOT to progress ADL tolerance. Pt not seen by underwriter mortgage loan on this date, note written based on [...] mobility. * Pharmacy-Anticoagulation Service - Joni Steel [facility] - 05/30/2024 3:00 PM CDT Images from the original note were not included. 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 INR Goal= 2-3 Warfarin ENVIRONMENTAL SPECIALIST Regimen: 5 mg M-F and No [...] Agree with discharging the patient on their seating captain warfarin regimen of 5 mg M-F [...] Documentation Taken 05/28/2024 0810 by Edie Pack RNsammying machine operator Interventions: declines Goal: Readiness for Transition [...] documentation flowsheets. Pertinent assessments: Assumed cares @ [phone].Disoriented to situation and time. VSS on RA. [...] Flowsheet Documentation Taken 05/27/2024919 by Edie Pack RNsammying machine operator Interventions: declines Goal: Readiness for Transition [...] documentation flowsheets. Pertinent assessments: Assumed cares @ [phone].Disoriented to time and situation. VSS on RA. [...] bedrest * Pharmacy-Anticoagulation Service - Luis Collado [facility] - 05/26/2024 4:50 PM CDT Clinical Pharmacy - Warfarin Dosing Consult Pharmacy has been consulted to manage this patient???s warfarin therapy. Indication: DVT/PE Prophylaxis Therapy Goal: INR 2-3 Warfarin Prior to Admission: Yes Warfarin ENVIRONMENTAL SPECIALIST Regimen: 5 mg M-F and No [...] * Pharmacy-Vancomycin Dosing Service - Chucho Zuluaga [facility] - 05/25/2024 3:31 PM CDT Pharmacy [...] ZULUAGA RPH * Plan of Care - aMrce Leon RN - 05/25/2024 6:18 AM CDT [...] shift note. Outcome: Progressing Flowsheets (Taken 05/24/2024 7257) Outcome Evaluation: Scrotal dressing changed twice. Did [...] member and Thelma (aunt) via phone and [phone] Pertinent Information: outside meds--none added Changes made to ENVIRONMENTAL SPECIALIST medication list: Added: none Deleted: norvasc, lipitor, Changed: protonix Allergies reviewed with patient and updates made in EHR: yes Medication History Completed By: Graham Joseph RPH 05/23/2024 9:51 PM ENVIRONMENTAL SPECIALIST Med List Medication Sig Last Dose B Fuayyvw-P-Wmble Acid (WESCAPS PO) Take 1 capsule by [...] and procedure to be performed. A 16 Japanese coud?? catheter was placed through the urethra, [...] in stable condition. Lizandro Barron MD Urology [facility] documented in this encounter Plan of Treatment Upcoming Encounters Date Type Department Care Team (Late st Contact Info) Description 09/27/2024 1:00 PM SCARF GLUER Office Visit [facility] [address] [place] [phone] Jaxon Buenrostro MD [address] [place] [id number] Scheduled Referrals Name Type Priority Associated Diagnoses [...] - BEAKER POCT Final Resul t LABORATORY [facility] Lab [address] Lab (1st floor, no room number) [place] [address], [facility] * Glucose by meter (05/30/2024 7:13 AM CDT) GLUCOSE BY METER POCT 82 70 - 99 mg/dL 05/30/2024 7:19 AM CDT LABORATORY POC Blood, Capillary BLOOD SPECIMEN / Unknown 05/30/2024 7:13 AM CDT 05/30/2024 7:19 AM CDT Antonino Cheek MD LAB - BEAKER POCT Final Resul t LABORATORY [facility] Lab [address] Lab (1st floor, no room number) [place] [address] * (ABNORMAL) INR (05/30/2024 6:54 AM CDT) [facility] INR 2.26(H) 0.85 - 1.15 05/30/2024 7:20 AM CDT LABORATORY Blood STRUCTURE OF RIGHT HAND / Unknown Venipuncture / Unknown 05/30/2024 6:54 AM CDT 05/30/2024 7:06 AM CDT Antonino Cheek MD LAB - BLOOD ORDERABLES Final Result LABORATORY [facility] Lab [address] Lab (1st floor, no room number) [place] [address] * (ABNORMAL) Basic metabolic panel (05/30/2024 6:54 AM CDT) [facility] Sodium 133(L) 135 - 145 mmol/L [...] LAB - BLOOD ORDERABLES Final Result LABORATORY [facility] Acute Care Lab [address] [facility] Lab (1st floor, no room number) [place] [address], [facility] * (ABNORMAL) CBC with platelets (05/30/2024 6:54 [...] LAB - BLOOD ORDERABLES Final Result LABORATORY [facility] Care Lab [address] [employer] Lab (1st floor, no room number) [address] * (ABNORMAL) Glucose by meter (05/30/2024 2:18 AM CDT) GLUCOSE BY METER POCT 138(H) 70 - 99 mg/dL 05/30/2024 2:24 AM CDT LABORATORY POC Blood, Capillary BLOOD SPECIMEN / Unknown 05/30/2024 2:18 AM CDT 05/30/2024 2:24 AM CDT us Antonino Cheek MD LAB - BEAKER POCT Final Resul t LABORATORY POC [facility] Lab [address] Lab (1st floor, no room number) [address] * (ABNORMAL) Glucose by meter (05/29/2024 9:28 PM CDT) GLUCOSE BY METER POCT 160(H) 70 - 99 mg/dL 05/29/2024 9:35 PM CDT RH LABORATORY POC Blood, Capillary BLOOD SPECIMEN / Unknown 05/29/2024 9:28 PM CDT 05/29/2024 9:35 PM CDT Antonino Cheek MD LAB - BEAKER POCT Final Resul t Performing Organization Address City/[facility]/ZIP Co de Phone Number LABORATORY [facility] Lab [address] Lab (1st floor, no room number) [place] [address], [facility] * (ABNORMAL) Glucose by meter (05/29/2024 5:54 PM CDT) GLUCOSE BY METER POCT 159(H) 70 - 99 mg/dL 05/29/2024 6:01 PM CDT LABORATORY POC Blood, Capillary BLOOD SPECIMEN / Unknown 05/29/2024 5:54 PM CDT 05/29/2024 6:01 PM CDT Antonino DEAN - BEXIANG POCT Final Resul t Performing Organization Address [facility]/ZIP Co de Phone Number LABORATORY [facility] Lab [address] Lab (1st floor, no room number) [place] [address], [facility] * (ABNORMAL) Glucose by meter (05/29/2024 1:41 PM CDT) GLUCOSE BY METER POCT 158(H) 70 - 99 mg/dL 05/29/2024 1:48 PM CDT LABORATORY POC Blood, Capillary BLOOD SPECIMEN / Unknown 05/29/2024 1:41 PM CDT 05/29/2024 1:48 PM CDT Antonino DEAN - BEXIANG POCT Final Resul t LABORATORY [facility] Lab [address] Lab (1st floor, no room number) [place] [address], [facility] * Glucose by meter (05/29/2024 7:54 AM CDT) GLUCOSE BY METER POCT 90 70 - 99 mg/dL 05/29/2024 8:01 AM CDT LABORATORY POC Blood, Capillary BLOOD SPECIMEN / Unknown 05/29/2024 7:54 AM CDT 05/29/2024 8:01 AM CDT Antonino Cheek MD LAB - BEAKER POCT Final Resul t RH LABORATORY POC [facility] Lab [address] Lab (1st floor, no room number) [place] [address], [facility] * (ABNORMAL) INR (05/29/2024 6:22 AM CDT) Pathologist [facility] INR 1.92(H) 0.85 - 1.15 05/29/2024 6:52 AM CDT LABORATORY Blood STRUCTURE OF RIGHT HAND / Unknown Venipuncture / Unknown 05/29/2024 6:22 AM CDT 05/29/2024 6:40 AM CDT us Antonino Cheek MD LAB - BLOOD ORDERABLES Final Result LABORATORY [facility] Care Lab [address] Lab (1st floor, no room number) [place] [address], [facility] * (ABNORMAL) Basic metabolic panel (05/29/2024 6:22 [...] - BLOOD ORDERABLES Final Result RH LABORATORY [facility] Acute Care Lab [address] Lab (1st floor, no room number) [place] [address], [facility] * (ABNORMAL) CBC with platelets (05/29/2024 6:22 [...] LAB - BLOOD ORDERABLES Final Result LABORATORY [facility] Lab [address] [facility] Lab (1st floor, no room number) [address] * (ABNORMAL) Glucose by meter (05/29/2024 2:26 AM CDT) GLUCOSE BY METER POCT 103(H) 70 - 99 mg/dL 05/29/2024 2:33 AM CDT LABORATORY POC Blood, Capillary BLOOD SPECIMEN / Unknown 05/29/2024 2:26 AM CDT 05/29/2024 2:33 AM CDT us Antonino Cheek MD LAB - BEAKER POCT Final Resul t LABORATORY [facility] Lab [address] [facility] Lab (1st floor, no room number) [address] * (ABNORMAL) Glucose by meter (05/28/2024 9:50 PM CDT) GLUCOSE BY METER POCT 102(H) 70 - 99 mg/dL 05/28/2024 9:56 PM CDT RH LABORATORY POC Blood, Capillary BLOOD SPECIMEN / Unknown 05/28/2024 9:50 PM CDT 05/28/2024 9:56 PM CDT us Antonino Cheek MD LAB - BEAKER POCT Final Resul t LABORATORY [facility] Lab [address] Lab (1st floor, no room number) [place] [id number] [place] [address] * (ABNORMAL) Glucose by meter (05/28/2024 5:08 PM CDT) GLUCOSE BY METER POCT 254(H) 70 - 99 mg/dL 05/28/2024 5:16 PM CDT LABORATORY POC Blood, Capillary BLOOD SPECIMEN / Unknown 05/28/2024 5:08 PM CDT 05/28/2024 5:16 PM CDT Antonino Cheek MD LAB - BEAKER POCT Final Resul t LABORATORY [facility] Lab [address] Lab (1st floor, no room number) [place] [id number] [place] [address] * Glucose by meter (05/28/2024 1:58 PM CDT) GLUCOSE BY METER POCT 91 70 - 99 mg/dL 05/28/2024 2:05 PM CDT LABORATORY POC Blood, Capillary BLOOD SPECIMEN / Unknown 05/28/2024 1:58 PM CDT 05/28/2024 2:05 PM CDT us Antonino Cheek MD LAB - BEAKER POCT Final Resul t LABORATORY [facility] Lab [address] Lab (1st floor, no room number) [place] [id number], [facility] * (ABNORMAL) Glucose by meter (05/28/2024 7:48 AM CDT) GLUCOSE BY METER POCT 128(H) 70 - 99 mg/dL 05/28/2024 7:54 AM CDT LABORATORY POC Blood, Capillary BLOOD SPECIMEN / Unknown 05/28/2024 7:48 AM CDT 05/28/2024 7:54 AM CDT us Antonino Cheek MD LAB - BEAKER POCT Final Resul t LABORATORY [facility] Lab [address] Lab (1st floor, no room number) [place] [id number] * Extra Purple Top EDTA (LAB USE ONLY) (05/28/2024 6:07 AM CDT) Hold Specimen [facility] 05/28/2024 7:32 AM CDT RH LABORATORY Blood STRUCTURE OF LEFT HAND / Unknown Venipuncture / Unknown 05/28/2024 6:07 AM CDT 05/28/2024 6:17 AM CDT us Antonino Cheek MD LAB - BLOOD ORDERABLES Final Result Performing Organization Address City/[facility]/ZIP Co de Phone Number [facility] Lab [address] Lab (1st floor, no room number) [place] [address] * Extra Green Top Tube (LAB USE ONLY) (05/28/2024 6:07 AM CDT) Hold Specimen [facility] 05/28/2024 7:32 AM CDT RH LABORATORY Blood STRUCTURE OF LEFT HAND / Unknown Venipuncture / Unknown 05/28/2024 6:07 AM CDT 05/28/2024 6:17 AM CDT us Antonino Cheek MD LAB - BLOOD ORDERABLES Final Result RH LABORATORY [facility] Acute [facility] Lab [address] Lab (1st floor, no room number) [place] [phone] [place] [address] * (ABNORMAL) INR (05/28/2024 6:07 AM CDT) Pathologist [facility] INR 1.87(H) 0.85 - 1.15 05/28/2024 6:27 AM CDT LABORATORY Blood STRUCTURE OF LEFT HAND / Unknown Venipuncture / Unknown 05/28/2024 6:07 AM CDT 05/28/2024 6:17 AM CDT us Antonino Cheek MD LAB - BLOOD ORDERABLES Final Result [facility] Lab [address] Lab (1st floor, no room number) [place] [id number] * (ABNORMAL) Hemoglobin (05/28/2024 6:07 AM CDT) Pathologist [facility] Hemoglobin 7.7(L) 13.3 - 17.7 g/dL 05/28/2024 9:02 AM CDT LABORATORY Blood STRUCTURE OF LEFT HAND / Unknown Venipuncture / Unknown 05/28/2024 6:07 AM CDT 05/28/2024 6:17 AM CDT us Dileep Anders MD LAB - BLOOD ORDERABLES Final Result [facility] Lab [address] Lab (1st floor, no room number) [place] [id number] * (ABNORMAL) Basic metabolic [...] LAB - BLOOD ORDERABLES Final Result LABORATORY [facility] Lab [address] [facility] Lab (1st floor, no room number) [place] [address], [facility] * (ABNORMAL) Glucose by meter (05/28/2024 2:19 AM CDT) [facility] GLUCOSE BY METER POCT 102(H) 70 - 99 mg/dL 05/28/2024 2:26 AM CDT LABORATORY POC Blood, Capillary BLOOD SPECIMEN / Unknown 05/28/2024 2:19 AM CDT 05/28/2024 2:26 AM CDT Antonino Cheek MD LAB - BEAKER POCT Final Resul t Performing Organization Address [facility]/ZIP Co de Phone Number LABORATORY [facility] Lab [address] Lab (1st floor, no room number) [address] [place] [address] * (ABNORMAL) Glucose by meter (05/27/2024 9:05 PM CDT) GLUCOSE BY METER POCT 148(H) 70 - 99 mg/dL 05/27/2024 9:13 PM CDT LABORATORY POC Blood, Capillary BLOOD SPECIMEN / Unknown 05/27/2024 9:05 PM CDT 05/27/2024 9:13 PM CDT Antonino Cheek MD LAB - BEAKER POCT Final Resul t Performing Organization Address [facility]/ZIP Co de Phone Number LABORATORY [facility] Lab [address] Lab (1st floor, no room number) [place] [phone] [place] [address] * (ABNORMAL) Glucose by meter (05/27/2024 5:11 PM CDT) GLUCOSE BY METER POCT 148(H) 70 - 99 mg/dL 05/27/2024 5:20 PM CDT LABORATORY POC Blood, Capillary BLOOD SPECIMEN / Unknown 05/27/2024 5:11 PM CDT 05/27/2024 5:20 PM CDT Antonino Cheek MD LAB - BEAKER POCT Final Resul t LABORATORY [facility] Lab [address] Lab (1st floor, no room number) [address] * (ABNORMAL) Glucose by meter (05/27/2024 11:42 AM CDT) GLUCOSE BY METER POCT 149(H) 70 - 99 mg/dL 05/27/2024 11:49 AM CDT RH LABORATORY POC Blood, Capillary BLOOD SPECIMEN / Unknown 05/27/2024 11:42 AM CDT 05/27/2024 11:49 AM CDT Antonino Cheek MD LAB - BEAKER POCT Final Resul t LABORATORY [facility] Lab [address] Lab (1st floor, no room number) [place] [address], [facility] * (ABNORMAL) Glucose by meter (05/27/2024 7:44 AM CDT) GLUCOSE BY METER POCT 108(H) 70 - 99 mg/dL 05/27/2024 7:51 AM CDT RH LABORATORY POC Blood, Capillary BLOOD SPECIMEN / Unknown 05/27/2024 7:44 AM CDT 05/27/2024 7:51 AM CDT Antonino Cheek MD LAB - BEAKER POCT Final Resul t Performing Organization Address [facility]/ZIP Co de Phone Number LABORATORY [facility] Lab [address] Lab (1st floor, no room number) [place] [address], [facility] * (ABNORMAL) INR (05/27/2024 7:03 AM CDT) INR 1.81(H) 0.85 - 1.15 05/27/2024 7:17 AM CDT RH LABORATORY Blood STRUCTURE OF RIGHT HAND / Unknown Venipuncture / Unknown 05/27/2024 7:03 AM CDT 05/27/2024 7:07 AM CDT us Antonino Cheek MD LAB - BLOOD ORDERABLES Final Result [facility] Lab [address] Lab (1st floor, no room number) [place] [id number] [place] [address] * (ABNORMAL) Glucose by meter (05/27/2024 2:03 AM CDT) GLUCOSE BY METER POCT 157(H) 70 - 99 mg/dL 05/27/2024 2:10 AM CDT RH LABORATORY POC Blood, Capillary BLOOD SPECIMEN / Unknown 05/27/2024 2:03 AM CDT 05/27/2024 2:10 AM CDT Antonino Cheek MD LAB - BEAKER POCT Final Resul t LABORATORY [facility] Lab [address] Lab (1st floor, no room number) [address] * (ABNORMAL) Glucose by meter (05/26/2024 9:29 PM CDT) GLUCOSE BY METER POCT 155(H) 70 - 99 mg/dL 05/26/2024 9:37 PM CDT LABORATORY POC Blood, Capillary BLOOD SPECIMEN / Unknown 05/26/2024 9:29 PM CDT 05/26/2024 9:37 PM CDT Antonino Cheek MD LAB - BEAKER POCT Final Resul t LABORATORY [facility] Lab [address] Lab (1st floor, no room number) [place] [id number] * (ABNORMAL) Glucose by meter (05/26/2024 4:10 PM CDT) GLUCOSE BY METER POCT 174(H) 70 - 99 mg/dL 05/26/2024 4:19 PM CDT RH LABORATORY POC Blood, Capillary BLOOD SPECIMEN / Unknown 05/26/2024 4:10 PM CDT 05/26/2024 4:19 PM CDT Antonino Cheek MD LAB - BEAKER POCT Final Resul t LABORATORY POC [facility] Lab [address] Lab (1st floor, no room number) [address] * (ABNORMAL) INR (05/26/2024 4:09 PM CDT) INR 1.67(H) 0.85 - 1.15 05/26/2024 4:28 PM CDT RH LABORATORY Blood STRUCTURE OF LEFT UPPER LIMB / Unknown Venipuncture / Unknown 05/26/2024 4:09 PM CDT 05/26/2024 4:15 PM CDT Antonino Cheek MD LAB - BLOOD ORDERABLES Final Result Performing Organization Address City/[facility]/ZIP Co de Phone Number LABORATORY [facility] Lab [address] Lab (1st floor, no room number) [address] * (ABNORMAL) Glucose by meter (05/26/2024 11:37 AM CDT) GLUCOSE BY METER POCT 197(H) 70 - 99 mg/dL 05/26/2024 11:44 AM CDT LABORATORY POC Blood, Capillary BLOOD SPECIMEN / Unknown 05/26/2024 11:37 AM CDT 05/26/2024 11:44 AM CDT Antonino Cheek MD LAB - BEAKER POCT Final Resul t LABORATORY [facility] [address] Lab (1st floor, no room number) [address] * Glucose by meter (05/26/2024 8:22 AM CDT) GLUCOSE BY METER POCT 85 70 - 99 mg/dL 05/26/2024 8:29 AM CDT LABORATORY POC Blood, Capillary BLOOD SPECIMEN / Unknown 05/26/2024 8:22 AM CDT 05/26/2024 8:29 AM CDT us Antonino DEAN - [facility] POCT Final Resul t RH LABORATORY [facility] Lab [address] Lab (1st floor, no room number) [place] [address], [facility] * (ABNORMAL) CBC with platelets and differential [...] LAB - BLOOD ORDERABLES Final Result LABORATORY [facility] Lab [address] Lab (1st floor, no room number) [place] [address], [facility] * (ABNORMAL) Basic metabolic panel (05/26/2024 5:47 [...] LAB - BLOOD ORDERABLES Final Result LABORATORY [facility] Lab [address] Lab (1st floor, no room number) [place] [address] * (ABNORMAL) Glucose by meter (05/26/2024 1:57 AM CDT) [facility] GLUCOSE BY METER POCT 123(H) 70 - 99 mg/dL 05/26/2024 2:04 AM CDT LABORATORY POC Blood, Capillary BLOOD SPECIMEN / Unknown 05/26/2024 1:57 AM CDT 05/26/2024 2:04 AM CDT Antonino Cheek MD LAB - BEAKER POCT Final Resul t Performing Organization Address [facility]/ZIP Co de Phone Number LABORATORY [facility] Lab [address] Lab (1st floor, no room number) [address] * (ABNORMAL) Glucose by meter (05/25/2024 9:32 PM CDT) GLUCOSE BY METER POCT 155(H) 70 - 99 mg/dL 05/25/2024 9:39 PM CDT RH LABORATORY POC Blood, Capillary BLOOD SPECIMEN / Unknown 05/25/2024 9:32 PM CDT 05/25/2024 9:39 PM CDT Antonino Cheek MD LAB - BEAKER POCT Final Resul t Performing Organization Address [facility]/ZIP Co de Phone Number LABORATORY [facility] Lab [address] Lab (1st floor, no room number) [address] * (ABNORMAL) Glucose by meter (05/25/2024 7:06 PM CDT) GLUCOSE BY METER POCT 183(H) 70 - 99 mg/dL 05/25/2024 7:14 PM CDT RH LABORATORY POC Blood, Capillary BLOOD SPECIMEN / Unknown 05/25/2024 7:06 PM CDT 05/25/2024 7:14 PM CDT us Antonino Cheek MD LAB - BEAKER POCT Final Resul t LABORATORY [facility] Lab [address] Lab (1st floor, no room number) [address] * (ABNORMAL) Glucose by meter (05/25/2024 5:29 PM CDT) GLUCOSE BY METER POCT 142(H) 70 - 99 mg/dL 05/25/2024 5:36 PM CDT RH LABORATORY POC Blood, Capillary BLOOD SPECIMEN / Unknown 05/25/2024 5:29 PM CDT 05/25/2024 5:36 PM CDT us Antonino Cheek MD LAB - BEAKER POCT Final Resul t LABORATORY POC [facility] Lab [address] Lab (1st floor, no room number) [place] [id number] [place] [address] * Vancomycin level (05/25/2024 2:04 PM CDT) Vancomycin 11.9 ug/mL 05/25/2024 3:28 PM CDT LABORATORY Comment: Traditional Dosing Therapeutic Range: Trough 10-15 ug/mL Peak 20-40 ug/mL Critical: Greater than 25.0 ug/mL Blood STRUCTURE OF RIGHT UPPER LIMB / Unknown Venipuncture / Unknown 05/25/2024 2:04 PM CDT 05/25/2024 2:07 PM CDT us Antonino Cheek MD LAB - BLOOD ORDERABLES Final Result Performing Organization Address City/[facility]/ZIP Co de Phone Number [facility] Lab [address] Lab (1st floor, no room number) [place] [phone] * Extra Purple Top EDTA (LAB USE ONLY) (05/25/2024 2:04 PM CDT) Hold Specimen [facility] 05/25/2024 3:17 PM CDT LABORATORY Blood STRUCTURE OF RIGHT UPPER LIMB / Unknown Venipuncture / Unknown 05/25/2024 2:04 PM CDT 05/25/2024 2:07 PM CDT us Antonino Cheek MD LAB - BLOOD ORDERABLES Final Result [facility] [address] Lab (1st floor, no room number) [place] [id number] [place] [address] * Extra Green Top Tube (LAB USE ONLY) (05/25/2024 2:04 PM CDT) Hold Specimen [facility] 05/25/2024 3:17 PM CDT LABORATORY Blood STRUCTURE OF RIGHT UPPER LIMB / Unknown Venipuncture / Unknown 05/25/2024 2:04 PM CDT 05/25/2024 2:07 PM CDT Antonino Cheek MD LAB - BLOOD ORDERABLES Final Result LABORATORY [facility] Lab [address] Lab (1st floor, no room number) [address] [place] [address] * Glucose by meter (05/25/2024 2:01 PM CDT) GLUCOSE BY METER POCT 70 70 - 99 mg/dL 05/25/2024 2:08 PM CDT LABORATORY POC Blood, Capillary BLOOD SPECIMEN / Unknown 05/25/2024 2:01 PM CDT 05/25/2024 2:08 PM CDT Antonino Cheek MD LAB - BEAKER POCT Final Resul t LABORATORY POC [facility] Lab [address] Lab (1st floor, no room number) [place] [id number] * Hepatitis B surface antigen (05/25/2024 9:25 AM CDT) Hepatitis B Surface Antigen Nonreactive Nonreactive 05/25/2024 2:23 PM CDT [facility] LABORATORY Blood BLOOD SPECIMEN / Unknown Venipuncture / Unknown 05/25/2024 9:25 AM CDT 05/25/2024 10:13 AM CDT Jose Enrique Naylor MD LAB - BLOOD ORDERABLES Final Res ult [facility] LABORATORY [facility] Lab [address] [facility], [address] [phone] * Hepatitis B Surface [...] BLOOD ORDERABLES Final Res ult U LABORATORY [facility] Lab [address] [facility], Room [address] [phone] * Glucose by meter (05/25/2024 5:35 AM CDT) GLUCOSE BY METER POCT 86 70 - 99 mg/dL 05/25/2024 5:42 AM CDT LABORATORY POC Blood, Capillary BLOOD SPECIMEN / Unknown 05/25/2024 5:35 AM CDT 05/25/2024 5:42 AM CDT us Antonino Cheek MD LAB - BEAKER POCT Final Resul t LABORATORY POC [facility] Lab [address] Lab (1st floor, no room number) [place] [address], [facility] * Glucose by meter (05/25/2024 2:01 AM CDT) GLUCOSE BY METER POCT 86 70 - 99 mg/dL 05/25/2024 2:08 AM CDT RH LABORATORY POC Blood, Capillary BLOOD SPECIMEN / Unknown 05/25/2024 2:01 AM CDT 05/25/2024 2:08 AM CDT Antonino Cheek MD LAB - BEAKER POCT Final Resul t LABORATORY [facility] Lab [address] Lab (1st floor, no room number) [place] [phone] * Glucose by meter (05/24/2024 8:52 PM CDT) GLUCOSE BY METER POCT 96 70 - 99 mg/dL 05/24/2024 8:59 PM CDT RH LABORATORY POC Blood, Capillary BLOOD SPECIMEN / Unknown 05/24/2024 8:52 PM CDT 05/24/2024 8:59 PM CDT Antonino DEAN - BEAKER POCT Final Resul t Performing Organization Address [facility]/ZIP Co de Phone Number LABORATORY [facility] Lab [address] Lab (1st floor, no room number) [place] [phone], [facility] * Glucose by meter (05/24/2024 5:05 PM CDT) GLUCOSE BY METER POCT 84 70 - 99 mg/dL 05/24/2024 5:32 PM CDT RH LABORATORY POC Blood, Capillary BLOOD SPECIMEN / Unknown 05/24/2024 5:05 PM CDT 05/24/2024 5:32 PM CDT us Antonino Cheek MD LAB - BEXIANG POCT Final Resul t LABORATORY [facility] Lab [address] Lab (1st floor, no room number) [place] [phone] [place] [address] * (ABNORMAL) INR (05/24/2024 2:16 PM CDT) INR 1.16(H) 0.85 - 1.15 05/24/2024 2:34 PM CDT LABORATORY Blood BLOOD SPECIMEN / Unknown Venipuncture / Unknown 05/24/2024 2:16 PM CDT 05/24/2024 2:21 PM CDT us Lizandro Barron MD LAB - BLOOD ORDERABLES Final Re sult [facility] Lab [address] [facility] Lab (1st floor, no room number) [place] [phone] [place] [address] * Glucose by meter (05/24/2024 12:20 PM CDT) GLUCOSE BY METER POCT 75 70 - 99 mg/dL 05/24/2024 12:26 PM CDT LABORATORY POC Blood, Capillary BLOOD SPECIMEN / Unknown 05/24/2024 12:20 PM CDT 05/24/2024 12:26 PM CDT us Antonino Cheek MD LAB - BEAKER POCT Final Resul t LABORATORY [facility] Lab [address] Lab (1st floor, no room number) [place] [phone] * Glucose by meter (05/24/2024 9:12 AM CDT) GLUCOSE BY METER POCT 86 70 - 99 mg/dL 05/24/2024 9:19 AM CDT LABORATORY POC Blood, Capillary BLOOD SPECIMEN / Unknown 05/24/2024 9:12 AM CDT 05/24/2024 9:19 AM CDT us [facility]ek [facility] Final Resul t RH LABORATORY [facility] Lab [address] Lab (1st floor, no room number) [place] [address], [facility] * (ABNORMAL) CBC with platelets and differential [...] LAB - BLOOD ORDERABLES Final Result LABORATORY [facility] Lab [address] Lab (1st floor, no room number) [place] [address], [facility] * (ABNORMAL) Comprehensive metabolic panel (05/24/2024 6:09 [...] - BLOOD ORDERABLES Final Result RH LABORATORY [facility] Lab [address] Lab (1st floor, no room number) [place] [address], [facility] * INR (05/24/2024 6:09 AM CDT) INR 1.14 0.85 - 1.15 05/24/2024 6:27 AM CDT LABORATORY Blood STRUCTURE OF LEFT HAND / Unknown Venipuncture / Unknown 05/24/2024 6:09 AM CDT 05/24/2024 6:14 AM CDT us Lizandro Barron MD LAB - BLOOD ORDERABLES Final Re sult LABORATORY [facility] Lab [address] Lab (1st floor, no room number) [place] [address], [facility] * (ABNORMAL) Glucose by meter (05/24/2024 4:49 AM CDT) GLUCOSE BY METER POCT 119(H) 70 - 99 mg/dL 05/24/2024 4:56 AM CDT LABORATORY POC Blood, Capillary BLOOD SPECIMEN / Unknown 05/24/2024 4:49 AM CDT 05/24/2024 4:56 AM CDT Antonino Cheek MD LAB - BEAKER POCT Final Resul t Performing Organization Address [facility]/ZIP Co de Phone Number LABORATORY [facility] Lab [address] Lab (1st floor, no room number) [place] [address], [facility] * (ABNORMAL) Glucose by meter (05/24/2024 1:13 AM CDT) GLUCOSE BY METER POCT 100(H) 70 - 99 mg/dL 05/24/2024 1:20 AM CDT LABORATORY POC Blood, Capillary BLOOD SPECIMEN / Unknown 05/24/2024 1:13 AM CDT 05/24/2024 1:20 AM CDT us Antonino Cheek MD LAB - BEAKER POCT Final Resul t LABORATORY [facility] Lab [address] Lab (1st floor, no room number) [place] [phone] [place] [address] * INR (05/23/2024 10:19 PM CDT) INR 1.04 0.85 - 1.15 05/23/2024 10:43 PM CDT LABORATORY Blood STRUCTURE OF LEFT UPPER LIMB / Unknown Venipuncture / Unknown 05/23/2024 10:19 PM CDT 05/23/2024 10:26 PM CDT us Lizandro Barron MD LAB - BLOOD ORDERABLES Final Re sult LABORATORY [facility] Lab [address] [facility] Lab (1st floor, no room number) [address] [place] [address] * Glucose by meter (05/23/2024 9:58 PM CDT) GLUCOSE BY METER POCT 83 70 - 99 mg/dL 05/23/2024 10:04 PM CDT LABORATORY POC Blood, Capillary BLOOD SPECIMEN / Unknown 05/23/2024 9:58 PM CDT 05/23/2024 10:04 PM CDT us Antonino Cheek MD LAB - BEAKER POCT Final Resul t LABORATORY POC [facility] Lab [address] Lab (1st floor, no room number) [address] * (ABNORMAL) Glucose by meter (05/23/2024 9:06 PM CDT) GLUCOSE BY METER POCT 47(LL) 70 - 99 mg/dL 05/23/2024 9:13 PM CDT LABORATORY POC Comment:Dr/RN Notified Blood, Capillary BLOOD SPECIMEN / Unknown 05/23/2024 9:06 PM CDT 05/23/2024 9:13 PM CDT Antonino Cheek MD LAB - BEAKER POCT Final Resul t LABORATORY [facility] Lab [address] Lab (1st floor, no room number) [address] * Glucose by meter (05/23/2024 8:41 PM CDT) GLUCOSE BY METER POCT 78 70 - 99 mg/dL 05/23/2024 8:48 PM CDT LABORATORY POC Blood, Capillary BLOOD SPECIMEN / Unknown 05/23/2024 8:41 PM CDT 05/23/2024 8:48 PM CDT us Antonino Cheek MD LAB - BEAKER POCT Final Resul t LABORATORY [facility] Lab [address] Lab (1st floor, no room number) [address] * (ABNORMAL) Glucose by meter (05/23/2024 7:55 PM CDT) GLUCOSE BY METER POCT 67(L) 70 - 99 mg/dL 05/23/2024 8:02 PM CDT LABORATORY POC Blood, Capillary BLOOD SPECIMEN / Unknown 05/23/2024 7:55 PM CDT 05/23/2024 8:02 PM CDT Antonino Cheek MD LAB - BEAKER POCT Final Resul t LABORATORY [facility] Lab [address] Lab (1st floor, no room number) [address] * (ABNORMAL) Tissue Aerobic Bacterial Culture [...] GENERAL ORDERABLES Final Result [facility] IDD LABORATORY [facility] Inf. Diseases Diag. Lab [address] [facility], Room [place] [phone] * (ABNORMAL) Gram Stain (05/23/2024 6:42 [...] GENERAL ORDERABLES Final Result Performing Organization Address City/[facility] Co de Phone Number [facility] IDD LABORATORY [facility] Inf. Diseases Diag. Lab [address] [facility], Room [place] [phone] [place] [address] * Anaerobic Bacterial Culture Routine (05/23/2024 6:42 PM CDT) Culture 4+ Mixed Aerobic and Anaerobic dev JOJO 05/25/2024 2:01 PM CDT [facility] IDD LABORATORY Comment:No predominant organ ism Tissue SCROTAL STRUCTURE / Unknown Non-blood Collection / Unknown 05/23/2024 6:42 PM CDT 05/23/2024 6:46 PM CDT us Lizandro Barron MD LAB - MICRO GENERAL ORDERABLES Final Result [facility] LABORATORY [facility] Inf. Diseases Diag. Lab [address] [facility], [address] [place] [address], [facility] * Glucose by meter (05/23/2024 5:41 PM CDT) GLUCOSE BY METER POCT 90 70 - 99 mg/dL 05/23/2024 5:49 PM CDT LABORATORY POC Blood, Capillary BLOOD SPECIMEN / Unknown 05/23/2024 5:41 PM CDT 05/23/2024 5:49 PM CDT us Vi Coe DO LAB - BEAKER POCT Final Result Performing Organization Address City/[facility]/ZIP Co de Phone Number LABORATORY POC [facility] Lab [address] Lab (1st floor, no room number) [place] [address] * EKG 12-lead, tracing only (05/23/2024 5:08 PM CDT) Systolic Blood Pressure mmHg RADIOLOGY RESULTS Diastolic Blood Pressure mmHg RADIOLOGY RESULTS Ventricular Rate 63 BPM RAD IOLOGY RESULTS Atrial Rate 63 BPM RADIOLOG Y RESULTS AL Interval 222 ms RADIOLOG Y RESULTS QRS Duration 102 ms RADIOLO GY RESULTS QT 448 ms RADIOLOGY RESULTS QTc 458 ms RADIOLOGY RESULTS P [place] 54 degrees RADIOLOGY RESULTS R AXIS -5 degrees RADIOLOGY RESULTS T [place] 24 degrees RADIOLOGY RESULTS Interpretation ECG Sinus rhythm with 1st degree A-V block Septal infarct , age undetermined Abnormal ECG When compared with ECG of 02-Mar-2024 14:00, Septal infarct is now Present No significant change was found Confirmed by - EMERGENCY ROOM, PHYSICIAN ([id number]), clinical editor LIZANDRO ZABALA ([id number]) on 05/24/2024 6:44:53 AM RADIOLOGY RESULTS 05/23/2024 [...] - BLOOD ORDERABLES F inal Result LABORATORY [facility] [address] [facility], no room number) [place] [address] * CT Abdomen Pelvis [...] 2:35 PM. MIKE LIPSCOMB MD SYSTEM ID: [id number] Narrative 05/23/2024 2:[address] ABDOMEN [...] veins which are not included in the [id number]. MUSCULOSKELETAL: Stable degenerative changes at L4-L5 with [...] veins which are not included in the [id number]. 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 No destructive lesions in the bones. IMPRESSION: 1. 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 2. Other chronic findings as discussed above. Findings were discussed with Dr. Kenna Coe at 2:35 PM. MIKE LIPSCOMB MD SYSTEM ID: [id number] Vi Coe DO IMG CT ORDERABLES Final Result * Adult Type and Screen (05/23/2024 2:07 PM CDT) ABO/RH(D) O POS 05/23/2024 1:37 PM CDT RH BLOOD BANK Antibody Screen Negative Negative 05/23/2024 1:37 PM CDT RH BLOOD BANK SPECIMEN EXPIRATION DATE [id number] 05/23/2024 1:37 PM CDT RH BLOOD BANK Blood BLOOD SPECIMEN / Unknown Venipuncture / Unknown 05/23/2024 2:07 PM CDT 05/23/2024 2:10 PM CDT Vi Coe DO LAB - BLOOD BANK TEST OR NORAH Final Result BLOOD BANK [address] [place] [address] * (ABNORMAL) CBC with [...] BLOOD ORDERABLES F inal Result RH LABORATORY [facility] Lab [address] Lab (1st floor, no room number) [place] [address] * Lactic acid whole blood (05/23/2024 1:50 PM CDT) Pathologist [facility] Lactic Acid 0.9 0.7 - 2.0 mmol/L 05/23/2024 1:57 PM CDT RH LABORATORY Blood BLOOD SPECIMEN / Unknown Venipuncture / Unknown 05/23/2024 1:50 PM CDT 05/23/2024 1:54 PM CDT Vi Coe DO LAB - BLOOD ORDERABLES F inal Result LABORATORY [facility] Lab [address] Lab (1st floor, no room number) [place] [address] * Blood Culture Peripheral Blood (05/23/2024 1:50 PM CDT) [facility] Culture No Growth 05/28/2024 4:06 PM CDT [facility] IDD LABORATORY Blood BLOOD SPECIMEN / Unknown Venipuncture / Unknown 05/23/2024 1:50 PM CDT 05/23/2024 1:53 PM CDT us Vi Coe DO LAB - MICRO GENERAL ORDE RABLES Final Result [facility] IDD LABORATORY [facility] Inf. Diseases Diag. Lab [address] [facility], [address] [place] [address] * (ABNORMAL) Comprehensive metabolic panel (05/23/2024 1:50 PM CDT) Pathologist [facility] Sodium 134(L) 135 - 145 mmol/L 05/23/2024 [...] - BLOOD ORDERABLES F inal Result LABORATORY [facility] Lab [address] Lab (1st floor, no room number) [place] [address], [facility] * (ABNORMAL) INR (05/23/2024 1:50 PM CDT) INR >10.00(HH) 0.85 - 1.15 05/23/2024 2:30 PM CDT RH LABORATORY Blood BLOOD SPECIMEN / Unknown Venipuncture / Unknown 05/23/2024 1:50 PM CDT 05/23/2024 1:55 PM CDT us Vi Coe DO LAB - BLOOD ORDERABLES F inal Result RH LABORATORY [facility] Lab [address] [facility] Lab (1st floor, no room number) [place] [address], [facility] documented in this encounter Visit Diagnoses Diagnosis [...] correction dose. 2222 (Not Given - Provider: Hiedi Koo RN - Reason: Order parameters not [...] stools. documented in this encounter Care Teams Ship Scaler Relationship Specialty Start Date End Date Cronell Butt PCP - General 06/24/11 documented as of this encounter
--- OUTSIDE RECORDS SUMMARY | 2024-09-02 00:13 | XMS_ITS ---
Author Organization [place] Address [address] [place] [address] Care Team Providers Care Residence Director Name Role Phone Preet Huff Primary Care Provider [phone] Transitional Care Management Status:Closed (Closed) Start date:08/27/2024 End date:08/27/2024 Continued Care and Services Coordination
--- OUTSIDE RECORDS SUMMARY | 2024-09-02 00:13 | XMS_ITS | Encounter Summary ---
Author Organization [place] Address [address] [facility] [place] [address] Care Team Providers Care Cartoon Designer Name Role Phone Preet Huff Primary Care Provider [phone] Jaxon Saravia MD Unavailable Encounter Details Date Type Department Care Team (Late Contact Info) Description 05/07/2013 Orders Only [facility] Interventional Radiology [address] [place] [phone] Layla Garcia RN Clotted dialysis access (H) (Primary Dx) Social History Tobacco Use Types Packs/Day Years Used Date Smoking Tobacco: Never Smokeless Tobacco: Never Alcohol Use Standard Drinks/Week Comments No 0 (1 standard drink = 0.6 oz pur e alcohol) Sex and Gender Information Value Date Recorded Sex Assigned at Not on file Legal Sex Male 5:12 AM HISTORIOGRAPHY TEACHER Gender Identity Male 12/05/2017 10:39 AM HISTORIOGRAPHY TEACHER Sexual Orientation Not on file documented as of this encounter Plan of Treatment Upcoming Encounters Date Type Department Care Team (Late st Contact Info) Description 09/27/2024 1:00 PM HISTORIOGRAPHY TEACHER Office Visit [facility] [place] [address] [place] [phone] Jaxon Saravia MD [address] [place] [address] documented as of this encounter Visit Diagnoses Diagnosis Clotted dialysis access (H)- Primary Mechanical complication of other vascular device, implant, and graft documented in this encounter Care Teams Cartoon Designer Relationship Specialty Start Date End Date Preet Huff PCP - General 06/24/11 Jaxon Saravia MD [address] [place] [address] Assigned Heart and Vascular Provider 08/01/20 12/06/20 documented as of this encounter
--- OUTSIDE RECORDS SUMMARY | 2024-09-02 00:13 | XMS_ITS ---
Author Organization [place] Address [address] [place] [address] Care Team Providers Care Boathouse Keeper Name Role Phone Preet Huff Primary Care Provider [phone] Transitional Care Management Status:Closed (Closed) Start date:05/31/2024 Enrollment date:06/01/2024 End date:06/14/2024 Close reason:Goals met Continued Care and Services Coordination
--- OUTSIDE RECORDS SUMMARY | 2024-09-02 00:13 | XMS_ITS | Encounter Summary ---
Author Organization [place] Address [address] [facility] [place] [address] Care Team Providers Care Collections Agent Name Role Phone Preet Huff Hans Primary Care Provider [phone] Encounter Details Date Type Department Care Team (Late Contact Info) Description 02/08/2022 External Order Results [facility] [address] [place] [address] Outside, Provider Social History Tobacco Use Types Packs/Day Years Used Date Smoking Tobacco: Never Smokeless Tobacco: Never Alcohol Use Standard Drinks/Week Comments No 0 (1 standard drink = 0.6 oz pur e alcohol) PHQ-2 Answer Date Recorded PHQ-2 Score 0 10/18/2018 Sex and Gender Information Value Date Recorded Sex Assigned at Not on file Legal Sex Male 5:12 AM IV THERAPY NURSE Gender Identity Male 12/05/2017 10:39 AM IV THERAPY NURSE Sexual Orientation Not on file COVID-19 Exposure Response Date Recorded In the last 10 days, have yo u been in contact with someone who was confirmed or suspected to have Coronavirus/COVID-19? No / Unsure 02/11/2022 8:53 AM CDT documented as of this encounter Plan of Treatment Upcoming Encounters Date Type Department Care Team (Late st Contact Info) Description 09/27/2024 1:00 PM IV THERAPY NURSE Office Visit [facility] [place] [address] [place] [phone] Jaxon Saravia MD [address] [place] [address] documented as of this encounter Procedures Procedure Name Priority Date/Time Associated Diagnosis Comments COVID-19 VIRUS (CORONAVIRUS) BY PCR (EXTERNAL RESULT) Routine 02/08/2022 6:30 AM CDT documented in this encounter Results * COVID-19 Virus (Coronavirus) by PCR (External Result) (02/08/2022 6:30 AM CDT) COVID-19 Virus by PCR (External Result) NEG NON-INTERFACED (ONBASE SCANS) 02/08/2022 6:30 AM CDT Narrative MARI AT PFT - 02/15/2022 3:13 PM CDT Verified by Eugene Rodriguez on 02/15/2022. us Provider Outside LABORATORY Edited Result - Final MARIA T PFT NON-INTERFACED (ONBASE SCANS) documented in this encounter Visit Diagnoses Not on filedocumented in this encounter Care Teams Collections Agent Relationship Specialty Start Date End Date Preet Huff PCP - General 06/24/11 documented as of this encounter
--- OUTSIDE RECORDS SUMMARY | 2024-09-02 00:13 | XMS_ITS | Encounter Summary ---
Author Organization [place] Address [address] [place] [address] Care Team Providers Care Event Management Consultant Name Role Phone HuffPreet cool Hans Primary Care Provider [phone] Jaxon Saravia MD Unavailable [phone] Encounter Details Date Type Department Care Team (Late st Contact Info) Description 10/20/2011 Hospital PHYS STANDARD [address] [phone] Wojciech Holman MD [facility] [address] [place] [id number] ESRD (end stage renal disease) on dialysis (H); Hyperkalemia Social History Tobacco Use Types Packs/Day Years Used Date Smoking Tobacco: Never Smokeless Tobacco: Never Alcohol Use Standard Drinks/Week Comments No 0 (1 standard drink = 0.6 oz pur e alcohol) Sex and Gender Information Value Date Recorded Sex Assigned at Not on file Legal Sex Male 5:12 AM BEAUTY ADVISOR Gender Identity Male 12/05/2017 10:39 AM BEAUTY ADVISOR Sexual Orientation Not on file documented as of this encounter Plan of Treatment Upcoming Encounters Date Type Department Care Team (Late st Contact Info) Description 09/27/2024 1:00 PM BEAUTY ADVISOR Office Visit [facility] [place] [address] [phone] Jaxon Saravia MD [address] [place] [address] documented as of this encounter Visit Diagnoses Diagnosis ESRD (end stage renal disease) on dialysis (H) End stage renal disease Hyperkalemia Hyperpotassemia documented in this encounter Care Teams Event Management Consultant Relationship Specialty Start Date End Date Preet Huff PCP - General 06/24/11 Jaxon Saravia MD [address] [place] [address] Assigned Heart and Vascular Provider 08/01/20 12/06/20 documented as of this encounter
--- OUTSIDE RECORDS SUMMARY | 2024-09-02 00:13 | XMS_ITS | Encounter Summary ---
Author Organization [place] Address [address] [facility] [place] [address] Care Team Providers Care Weapons Designer Name Role Phone Preet Huff Primary Care Provider [phone] Jaxon Saravia MD Unavailable [phone] Encounter Details Date Type Department Care Team (Late Contact Info) Description 12/21/2012 Orders Only [facility] Interventional Radiology [address] [place] [phone] Layla Garcia RN Social History Tobacco Use Types Packs/Day Years Used Date Smoking Tobacco: Never Smokeless Tobacco: Never Alcohol Use Standard Drinks/Week Comments No 0 (1 standard drink = 0.6 oz pur e alcohol) Sex and Gender Information Value Date Recorded Sex Assigned at Not on file Legal Sex Male 5:12 AM OCCUPATIONAL THERAPY MANAGER Gender Identity Male 12/05/2017 10:39 AM OCCUPATIONAL THERAPY MANAGER Sexual Orientation Not on file documented as of this encounter Plan of Treatment Upcoming Encounters Date Type Department Care Team (Late Contact Info) Description 09/27/2024 1:00 PM OCCUPATIONAL THERAPY MANAGER Office Visit [facility] V[facility] [place] [address] [phone] Jaxon Saravia MD [address] [place] [address] documented as of this encounter Visit Diagnoses Not on filedocumented in this encounter Care Teams Weapons Designer Relationship Specialty Start Date End Date Preet Huff PCP - General 06/24/11 Jaxon Saravia MD [address] [place] [address] Assigned Heart and Vascular Provider 08/01/20 2 documented as of this encounter
--- OUTSIDE RECORDS SUMMARY | 2024-09-02 00:13 | XMS_ITS | Encounter Summary ---
Author Organization [facility] Address [address] [facility] [place] [address] Care Team Providers Care Molybdenum Steamer Operator Name Role Phone Preet Huff Primary Care Provider [phone] Jaxon Saravia MD Unavailable [phone] Encounter Details Date Type Department Care Team (Late Contact Info) Description 05/07/2013 Orders Only [facility] Interventional Radiology [address] [place] [phone] Layla Garcia RN Social History Tobacco Use Types Packs/Day Years Used Date Smoking Tobacco: Never Smokeless Tobacco: Never Alcohol Use Standard Drinks/Week Comments No 0 (1 standard drink = 0.6 oz pur e alcohol) Sex and Gender Information Value Date Recorded Sex Assigned at Not on file Legal Sex Male 5:12 AM CERTIFIED TOWER CLIMBER Gender Identity Male 12/05/2017 10:39 AM CERTIFIED TOWER CLIMBER Sexual Orientation Not on file documented as of this encounter Plan of Treatment Upcoming Encounters Date Type Department Care Team (Late Contact Info) Description 09/27/2024 1:00 PM CERTIFIED TOWER CLIMBER Office Visit [facility] [place] [address] [place] [phone] Jaxon Saravia MD [address] [place] [phone] documented as of this encounter Visit Diagnoses Not on filedocumented in this encounter Care Teams Molybdenum Steamer Operator Relationship Specialty Start Date End Date Preet Huff PCP - General 06/24/11 Jaxon Saravia MD [address] [place] [id number] Assigned Heart and Vascular Provider 08/01/20 2 documented as of this encounter
== END 2024-08-31 12:43 | disposition home or self-care (01) ==
LOC: AMB 09-02 00:08
PROVIDERS: PCP Internal Medicine Nephrology; Visit Provider Family Medicine
DX: R56.9 Unspecified convulsions (principal); R41.82 Altered mental status, unspecified
CPT/HCPCS: A0425; A0427

== ENCOUNTER 2024-08-31 13:00 | Emergency (ER) | payer MEDICARE, MEDICAID, SELFPAY ==
[2024-08-31] VITALS (43 sets, daily range): BP systolic 88–111; BP diastolic 42–56; PULSE 72–86; RESP 18; TEMP 36.3; O2SAT 93–100
--- OUTSIDE RECORDS SUMMARY | 2024-08-31 13:03 | XMS_ITS | Encounter Summary ---
Author Organization [facility] [place] Address [address] [place] [address] Phone Care Team Providers Care Ampoule Filler Name Role Phone Preet Huff MD Primary Care Provider [phone] Reason for Visit * Reason Comments Med Refill Encounter Details Date Type Department Care Team (Late st Contact Info) Description 02/12/2021 Refill [facility] [address] [facility] [address] [place], [place] [address] María Elena Styles PA [address] [place] [address] Social History Tobacco Use Types Packs/Day Years Used Date Smoking Tobacco: Never Assessed Sex and Gender Information Value Date Recorded Sex Assigned at Not on file Gender Identity Not on file Sexual Orientation Not on file documented as of this encounter Plan of Treatment Not on file documented as of this encounter Visit Diagnoses Not on filedocumented in this encounter Care Teams Ampoule Filler Relationship Specialty Start Date End Date Preet Huff MD [address] [place] [phone] PCP - General 10/31/19 documented as of this encounter
--- OUTSIDE RECORDS SUMMARY | 2024-08-31 13:03 | XMS_ITS | Clinical Summary ---
Author Organization [employer] [facility] [employer] [facility] [employer] [facility] Address [place], [place] [address] Care Team Providers Care Fish Cutter Name Role Phone Preet Huff MD [...] use: Daily 1 Each 11 06/07/2024 Active Walker - 4 wheelsIndications:Un stable gait With seat. For home use. Length of need: 99 1 Each 07/26/2024 Active Active Problems Problem Noted Date Diagnosed Date Mita's gangrene of scrotum 05/202406/07/2024 Dependence on renal dialysis 11/08/2023 Chronic constipation 06/23/2022 Impaired cognition 09/05/2020 Type 2 diabetes mellitus wit h kidney complication, without long-term current use of insulin 09/30/2016 Subclinical hyperthyroidism 05/24/2015 Vitamin D deficiency 05/21/2015 Mixed hyperlipidemia 07/25/2012 DVT of upper extremity (deep vein thrombosis) snf (current) use of anticoagulants 2010 Secondary hyperparathyroidism [...] Encounters Date Type Department Care Team Description 08/11/2024 Refill [facility] [address] [place] [address] Preet Huff MD Refill Request (Amlodipine) 07/27/2024 Telephone [facility] [address] [place] [address] Preet Huff MD blood pressure 07/26/2024 Nurse Triage [facility] [address] [place] [address] Preet Huff MD Low Blood Pressure 07/24/2024 Telephone [facility] [address] [place] [address] Preet Huff MD DME Supply (Walker); [place] 06/28/2024 Orders Only [facility] Scanner 1 scan: (1-Ord) [place], WOUND DEBRIDEMENT ANTERIOR SCROTUM, 06/28/2024 06/13/2024 Telephone [facility] [address] [place] [address] Preet Huff MD Follow Up (NO OPENINGS AT WOUND CLINIC) 06/07/2024 2:30 PM CDT Office Visit [facility] [address] [place] [address] Lizandro Singh MD Sleep Follow-up 06/07/2024 2:05 PM CDT Office Visit [facility] [address] [place] [address] Preet Huff MD [facility] 06/07/2024 Travel from Last 3 Months Immunizations Name [...] 0 05/22/2020 Social Connections Answer Date Recorded Do you often feel lonely or isolated from those around you? 0 03/20/2024 Financial Resource Strain Answer Date R ecorded Difficulty of Paying Living Expenses 3 03/20/2024 Difficulty of Paying Living Expenses Not on file 03/20/2024 Food Insecurity Answer Date Recorded Do you worry your food will run out before you are able to buy more? 1 03/20/2024 Transportation Needs Answer Date Record ed Does lack of transportation keep you from medica l appointments? 1 03/20/2024 Does lack of transportation keep you from work, meetings or getting things that you need? 1 03/20/2024 Housing Stability Answer Date Recorded What is your housing situation today? 1 03/20/2024 Sex and Gender Information Value Date Recorded Sex Assigned at Not on file Gender Identity Not on file Sexual Orientation Not on file Obstetrics History Last Filed Vital Signs Vital Sign Reading Time Taken Comments Blood Pressure 105/62 06/07/2024 2:42 PM CDT Pulse 72 06/07/2024 2:42 PM CDT Temperature 36.9 C (98.4 F) 05/22/2020 1:36 PM CDT Respiratory Rate 18 [...] Completed 10/21/2009 Medical Devices Implanted Type Area Driver'S License Examiner Device Identifier Shelf Expiration Date Model / Serial / Lot Cath Peritoneal Cvd 62cm - [id number] Implanted:Qty: 1 on 10/31/2009 at [facility] N/A: Abdomen STIVEN 05/10/2014 [id number] 10 # / / [id number] Procedures Procedure Name Priority Date/Time Associated Diagnosis Comments SCAN-OPERATIVE/PROC EDURE REPORT 06/28/2024 12:00 AM CDT LIPID PANEL W REFLEX MEASURED LDL Routine 11/08/2023 3:05 PM SOFTWARE PRODUCT SPECIALIST Mixed hyperlipidemia COLONOSCOPY SCREENING Routine 09/24/2013 12:00 AM SOFTWARE PRODUCT SPECIALIST Colon cancer screening ANTI HIV 1/2 Timed [...] W REFLEX MEASURED LDL (11/08/2023 3:05 PM SOFTWARE PRODUCT SPECIALIST) CHOLESTEROL,TOTAL 90(L) 100 - 199 mg/dL 11/09/2023 10:41 AM SOFTWARE PRODUCT SPECIALIST [facility] Comment: Cholesterol, Total Reference Ranges Desirable <200 mg/dL Borderline 200-239 mg/dL High >=240 mg/dL TRIGLYCERIDES 104 <150 mg/dL 11/09/2023 10:41 AM SOFTWARE PRODUCT SPECIALIST [facility] HDL CHOLESTEROL 30(L) >40 mg/dL 10:41 AM SOFTWARE PRODUCT SPECIALIST [facility] NON-HDL CHOLESTEROL 60 <145 mg/dl 11/09/2023 10:41 AM [facility] CHOL/HDL RATIO 3.00 <4.50 11/09/2023 10:41 AM SOFTWARE PRODUCT SPECIALIST [facility] LDL CHOLESTEROL 39 <=130 mg/dL 11/09/2023 10:41 AM SOFTWARE PRODUCT SPECIALIST [facility] VLDL CHOLESTEROL 21 <=30 mg/dL 11/09/2023 10:41 AM SOFTWARE PRODUCT SPECIALIST [facility] PROVIDER ORDERED STATUS RANDOM 11/09/2023 10:41 AM SOFTWARE PRODUCT SPECIALIST [facility] Blood BLOOD SPECIMEN / Unknown Butterfly / Unknown 11/08/2023 3:05 PM SOFTWARE PRODUCT SPECIALIST 11/08/2023 3:08 PM SOFTWARE PRODUCT SPECIALIST Preet Huff MD CHEMISTRY [facility] [address] [place] [address], * COLONOSCOPY SCREENING (09/24/2013 12:00 AM SOFTWARE PRODUCT SPECIALIST) Narrative 09/24/2013 12:00 AM SOFTWARE PRODUCT SPECIALIST Procedure Note Scanner - 09/24/2013 12:00 AM CST Preet Huff MD GI PROCEDURE O RD * ANTI HCV (03/04/2009 10:05 AM CDT) ANTI HCV Non-reacti ve [facility] Blood specimen (specimen) BLOOD SPECIMEN / Unknown 03/04/2009 10:05 AM CDT 03/04/2009 9:57 AM CDT Alfredo Juarez MD SEND OUTS [facility] INTERNAL ZIP [id number] [place] [address] * ANTI HIV 1/2 (03/04/2009 10:05 AM CDT) ANTI HIV 1/2 Non-reacti ve [facility] Blood specimen (specimen) BLOOD SPECIMEN / Unknown 03/04/2009 10:05 AM CDT 03/04/2009 9:57 AM CDT Alfredo Juarez MD SEND OUTS [facility] INTERNAL ZIP [address] [place] [address] from Last 3 Months or Most Recently Relevant to Health Maintenance Advance Directives Documents on File Type Date Recorded Patient Neuro Psych Sales Specialist Expl anation Power of Cryptoanalysis Teacher 09/04/2014 12:00 AM 07/2009 * Full Code [...] 5:57 PM 03/16/2009 5:32 PM Care Teams Fish Cutter Relationship Specialty Start Date End Date Preet Huff MD [address] [place] [address] PCP - General 12/02/06
--- OUTSIDE RECORDS SUMMARY | 2024-08-31 13:03 | XMS_ITS | Clinical Summary ---
Author Organization [facility] Address [address] [place] [phone] Phone Care Team Providers Care Interface Designer Name Role Phone Preet Huff MD Primary Care Provider [phone] Medications Medication Sig Dispensed Refills Start Date End Date Status cholecalciferol (VITAMIN D-3) 1000 units tablet 1 tab qd 04/02/2015 Active B Complex Vitamins (VITAMIN B COMPLEX) tablet 1 tab po daily 12/08/2012 Act bill bisacodyl (DULCOLAX) 5 MG EC tablet 2 tabs po bid 04/02/2015 Active B Uoblxix-B-Nqeui Acid (RENAL) 1 MG capsule 1 cap [...] 1982 Influenza Vaccine (#1) 2024 Care Teams Interface Designer Relationship Specialty Start Date End Date Preet Huff MD [address] [place] [phone] PCP - General 10/31/19
--- OUTSIDE RECORDS SUMMARY | 2024-08-31 13:03 | XMS_ITS | Encounter Summary ---
Author Organization [facility] Address [address] [place] [phone] Phone Care Team Providers Care Post Tronic Machine Operator Name Role Phone Preet Huff MD Primary Care Provider [phone] Reason for Visit * Reason Comments Med Refill Encounter Details Date Type Department Care Team (Late st Contact Info) Description 03/23/2021 Refill [facility] [address] [facility] [address] [place], [place] [id number] María Elena Styles PA [address] [facility] [address] [facility] [address] [place] [address] Social History Tobacco Use Types Packs/Day Years [...] on filedocumented in this encounter Care Teams Post Tronic Machine Operator Relationship Specialty Start Date End Date Preet Huff MD [address] [place] [phone] PCP - General 10/31/19 documented as of this encounter
--- OUTSIDE RECORDS SUMMARY | 2024-08-31 13:04 | XMS_ITS | Referral Summary ---
Author Organization [place] Address [address] [facility] [place] [address] Care Team Providers Care Retail Coverage Merchandiser Name Role Phone Preet uHff Hans Primary Care Provider [phone] Encounters Date Type Department Care Team Description 08/27/2024 [facility] [place] [address] [place] [phone] Jaxon Saravia MD Clinic Care Coordination - Follow-up (Follow up after ED visit 08/24/2024. 05/28/[address] Saravia. 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 Active calcium acetate (PHOSLO) 667 MG CAPS capsule Take 1,334 mg by mouth Take with snacks or supplements . Take 1 capsule (667 mg) once daily with a snack Active B Xjiweee-F-Fwcud Acid (WESCAPS PO) Take 1 capsule by mouth at bedtime. Active sennosides (SENOKOT) 8.6 MG tablet Take 2 tablets by mouth 2 times daily. Active pantoprazole (PROTONIX) 40 MG EC tablet Take 40 mg by mouth 2 times daily (before meals). Active atorvastatin (LIPITOR) 20 MG tablet Take 20 mg by mouth at bedtime. Active metoprolol tartrate (LOPRESSOR) 100 MG tablet Take 100 mg by mouth every evening 08/24/20 Discontinu ed(Med Rec(No AVS / No eCancel)) warfarin ANTICOAGULANT (COUMADIN) 5 MG tablet Take 1 tablet (5 mg) by mouth Tuesday through Tuesday, no dose on Sat and SunTake 1 tablet (5 mg) by mouth Tuesday through Tuesday, no dose on Sat and Sun 08/24/20 Discontinu ed(Stop at Discharge) Active Problems Problem Noted Date Diagnosed Date Hemorrhage of hemodialysis a rteriovenous fistula of left thigh 08/24/2024 Supratherapeutic INR 05/23/2024 Mita's gangrene of scrotum [...] to buy more? Patient unable to answer 08/24/2024 Within the past 12 months, d id the food you bought just not last and you didn t have money to get more? Patient unable to answer 08/24/2024 Housing Stability Answer Date Recorded Do you have housing? (Macyin g is defined as stable permanent housing and does not include staying ouside in a car, in a tent, in an abandoned building, in an overnight penitentiary, or couch-surfing.) Patient unable to answer 08/24/2024 Are you worried about losing your housing? Eb nt unable to answer 08/24/2024 Financial Resource Strain Answer Date R ecorded Within the past 12 months, h ave you or your family members you live with been unable to get utilities (heat, electricity) when it was really needed? Patient unable to answer 08/24/2024 Transportation Needs Answer Date Record ed Within the past 12 months, h as lack of transportation kept you from medical appointments, getting your medicines, non-medical meetings or appointments, work, or from getting things that you need? Patient unable to answer 08/24/2024 Sex and Gender Information Value Date Recorded Sex Assigned at Not on file Legal Sex Male 5:12 AM STICKER ON Gender Identity Male 12/05/2017 10:39 AM STICKER ON Sexual Orientation Not on file Last Filed Vital Signs Vital Sign Reading Time Taken Comments Blood Pressure 105/48 08/25/2024 1:00 PM STICKER ON Pulse 66 08/25/2024 1:00 PM STICKER ON Temperature 36.5 C (97.7 F) 08/25/2024 1:00 PM STICKER ON Respiratory Rate 16 08/25/2024 1:00 PM STICKER ON Oxygen Saturation 100% 08/25/2024 1:00 PM STICKER ON Inhaled Oxygen Concentration - - Weight 88 kg (194 lb 1.6 oz) 08/25/2024 8:30 AM STICKER ON Height 162.6 cm (5' 4) 08/24/2024 5:27 PM STICKER ON Body Mass Index 33.32 08/24/2024 5:27 PM STICKER ON Plan of Treatment Upcoming Encounters Date Type Department Care Team (Late st Contact Info) Description 09/27/2024 1:00 PM STICKER ON Office Visit [facility] [place] [address] [place] [phone] Jaxon Saravia MD [address] [place] [id number] Medical Devices Implanted Type Area Veterinary Physiologist Device Identifier Shelf Expiration Date Model / Serial / Lot Graft Patch Vasc Xenosure Biologic 0.8x08cm 0.8p8 Implanted:Qty: 1 on 12/16/2017 by Jaxon Saravia MD at [facility] Bone/Tis rocco/Biol ogic Left: Iliac/Fem orals [employer]ASC[employer] IN 06/06/2023 0.8P8 / / [id number] Graft Pericardium 8x0.8cm Vascu-Guard Implanted:Qty: 1 on 10/20/2011 at [facility] Right: Arm [employer] 01/16/2016 [id number] / / [id number] Femoral Popliteal Artery Implanted:Qty: 1 on 05/03/2012 by Jaxon Saravia MD at [facility] Right: Groin 12/07/2021 [id number] / [id number] / Description:CADAVER FEMORAL ARTERY RINSED IN A AND B SOLUTION: A SOLUTION LOT #[id number] EXPIRATION DATE 01/09/2014 B SOLUTION LOT #[id number] EXPIRATION DATE 11/15/2013 Graft Propaten Taper [id number] Implanted:Qty: 1 on 08/09/2012 by Jaxon Saravia MD at [facility] Right: Leg 10/24/2015 [id number] / / [id number] Graft Propaten Taper [id number] Implanted:Qty: 1 on 06/20/2013 by Jaxon Saravia MD at [facility] Left: Groin [employer] 02/07/2017 [id number] / / [id number] Graft Pericardium 8x0.8cm Vascu-Guard Implanted:Qty: 1 on 05/08/2014 by Jaxon Saravia MD at [facility] Left: Leg [employer] 11/26/2018 [id number] / PN# [id number] / [id number] Procol Vascular Bioprosthesis Implanted:Qty: 1 on 07/02/2015 by Jaxon Saravia MD at [facility] Left: Groin 12/16/2018 [id number] -[id number] / [id number] / Procol Vascular Bioprosthesis Implanted:Qty: 1 on 08/13/2015 by Jaxon Saravia MD at [facility] Left: Groin 12/16/2018 [id number] -[id number] / [id number] / Graft Vasc Bioprosthesis Procol [id number] Implanted:Qty: 1 on 03/05/2016 by Jaxon Saravia MD at [facility] Left: Leg [employer] IN 02/03/2019 [id number] -[id number] / [id number] / Procedures Procedure Name Priority Date/Time Associated Diagnosis Comments CBC WITH PLATELETS & DIFFERENTIAL STAT 08/25/2024 6:52 AM STICKER ON CBC WITH PLATELETS AND DIFFERENTIAL STAT 08/25/2024 6:52 AM STICKER ON INR Routine 08/25/2024 6:52 AM STICKER ON BASIC METABOLIC PANEL Routine 08/25/2024 6:52 AM STICKER ON US EXTREMITY ARTERIAL VENOUS DIALYSIS ACCESS GRAFT STAT 08/24/2024 3:25 PM STICKER ON BASIC METABOLIC PANEL STAT 08/24/2024 12:50 PM STICKER ON CBC WITH PLATELETS & DIFFERENTIAL STAT 08/24/2024 10:43 AM STICKER ON CBC WITH PLATELETS AND DIFFERENTIAL STAT 08/24/2024 10:43 AM STICKER ON INR STAT 08/24/2024 10:43 AM STICKER ON TROPONIN T, HIGH SENSITIVITY STAT 07/12/2024 4:23 AM CDT XR CHEST 2 VIEWS STAT 07/12/2024 3:[address] HEAD PERFUSION W CONTRAST STAT 07/12/2024 1:38 AM CDT CTA HEAD NECK W CONTRAST STAT 07/12/2024 1:[address] HEAD W/O CONTRAST STAT 07/12/2024 1:25 AM CDT ABO/RH TYPE AND SCREEN STAT 07/12/2024 1:14 AM CDT CBC WITH PLATELETS & DIFFERENTIAL STAT 07/12/2024 1:14 AM CDT BLOOD CULTURE STAT 07/12/2024 1:14 AM CDT TYPE AND SCREEN, ADULT STAT 07/12/2024 1:14 AM CDT EXTRA RED TOP TUBE STAT 07/12/2024 1: 14 AM CDT CBC WITH PLATELETS AND DIFFERENTIAL STAT 07/12/2024 1:14 AM CDT INR STAT 07/12/2024 1:14 AM CDT HEPATIC FUNCTION PANEL STAT 07/12/2024 1:14 AM CDT LACTIC ACID WHOLE BLOOD STAT 07/12/2024 1:14 AM CDT EXTRA TUBE STAT 07/12/2024 1:14 AM CDT TROPONIN T, HIGH SENSITIVITY STAT 07/12/2024 1:14 AM CDT BASIC METABOLIC PANEL STAT 07/12/2024 1:14 AM CDT GLUCOSE BY METER STAT 07/12/2024 1:13 AM CDT EKG 12-LEAD, TRACING ONLY STAT 07/12/2024 12:24 AM CDT RENAL PANEL Routine 03/12/2024 6:06 AM CDT COLONOSCOPY Routine 03/08/2024 1:04 PM CDT OCCULT BLOOD STOOL STAT 02/24/2024 11 :31 AM CDT HEPATITIS C (HIM EXTERNAL RESULT) Routine 01/04/2022 12:00 PM CDT LIPID PROFILE STAT 12/07/2017 12:34 PM STICKER ON 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 WBC Count 2.7(L) 4.0 - 11.0 10e3/uL 08/25/2024 6:58 AM STICKER ON [facility] RBC Count 4.40 4.40 - 5.90 10e6/uL 08/25/2024 6:58 AM STICKER ON [facility] Hemoglobin 11.4(L) 13.3 - 17.7 g/dL 08/25/2024 6:58 AM STICKER ON [facility] Hematocrit 36.5(L) 40.0 - 53.0 % 08/25/2024 6:58 AM STICKER ON [facility] MCV 83 78 - 100 fL 08/25/2024 6:58 AM STICKER ON [facility] MCH 25.9(L) 26.5 - 33.0 pg 08/25/2024 6:58 AM STICKER ON [facility] MCHC 31.2(L) 31.5 - 36.5 g/dL 08/25/2024 6:58 AM STICKER ON [facility] RDW 18.6(H) 10.0 - 15.0 % 08/25/2024 6:58 AM STICKER ON [facility] Platelet Count 112(L) 150 - 450 10e3/uL 08/25/2024 6:58 AM STICKER ON [facility] % Neutrophils 56 % 08/25/2024 6:58 AM STICKER ON [facility] % Lymphocytes 24 % 08/25/2024 6:58 AM STICKER ON [facility] % Monocytes 16 % 08/25/2024 6:58 AM STICKER ON [facility] % Eosinophils 3 % 08/25/2024 6:58 AM STICKER ON [facility] % Basophils 0 % 08/25/2024 6:58 AM STICKER ON [facility] % Immature Granulocytes 0 % 08/25/2024 6:58 AM STICKER ON [facility] NRBCs per 100 WBC 0 <1 /100 11/16/2 024 6:58 AM STICKER ON [facility] Absolute Neutrophils 1.5(L) 1.6 - 8.3 10e3/uL 08/25/2024 6:58 AM STICKER ON [facility] Absolute Lymphocytes 0.7(L) 0.8 - 5.3 10e3/uL 08/25/2024 6:58 AM STICKER ON [facility] Absolute Monocytes 0.4 0.0 - 1.3 10e3/uL 08/25/2024 6:58 AM STICKER ON [facility] Absolute Eosinophils 0.1 0.0 - 0.7 10e3/uL 08/25/2024 6:58 AM STICKER ON [facility] Absolute Basophils 0.0 0.0 - 0.2 10e3/uL 08/25/2024 6:58 AM STICKER ON [facility] Absolute Immature Granulocytes 0.0 <=0.4 10e3/uL 08/25/2024 6:58 AM STICKER ON [facility] Absolute NRBCs 0.0 10e3/uL 08/25/2024 6:58 AM STICKER ON LABORATORY Blood STRUCTURE OF RIGHT HAND / Unknown Venipuncture / Unknown 08/25/2024 6:52 AM STICKER ON 08/25/2024 6:56 AM STICKER ON Kolby Gandara MD LAB - BLOOD ORDERABLES Final Result [facility] [address] (1st floor, no room number) [place] [address] * (ABNORMAL) INR (08/25/2024 6:52 AM STICKER ON) Only the most recent of3 resultswithin the time period is included. INR 2.01(H) 0.85 - 1.15 08/25/2024 7:07 AM STICKER ON LABORATORY Blood STRUCTURE OF RIGHT HAND / Unknown Venipuncture / Unknown 08/25/2024 6:52 AM STICKER ON 08/25/2024 6:56 AM STICKER ON Kolby Gandara MD LAB - BLOOD ORDERABLES Final Result [facility] [address] (1st floor, no room number) [place] [address], [facility] * (ABNORMAL) Basic metabolic panel (08/25/2024 6:52 AM STICKER ON) Only the most recent of3 resultswithin the time period is included. Sodium 128(L) 135 - 145 mmol/L 08/25/2024 7:18 AM [facility] Potassium 4.3 3.4 - 5.3 mmol/L 08/25/2024 7:18 AM [facility] Chloride 88(L) 98 - 107 mmol/L 08/25/2024 7:18 AM [facility] Carbon Dioxide (CO2) 23 22 - 29 mmol/L 08/25/2024 7:18 AM [facility] Anion Gap 17(H) 7 - 15 mmol/L 08/25/2024 7:18 AM [facility] Urea Nitrogen 57.7(H) 8.0 - 23.0 mg/dL 08/25/2024 7:18 AM [facility] Creatinine 11.75(H) 0.67 - 1.17 mg/dL 08/25/2024 7:18 AM [facility] GFR Estimate 4(L) >60 mL/min/1. 73m2 08/25/2024 7:18 AM [facility] Comment:eGFR calculated 2020 CKD-EPI equation. Calcium 8.7(L) 8.8 - 10.4 mg/dL 08/25/2024 7:18 AM [facility] Comment:Reference intervals for this test were updated on 04/24/2024 to reflect our healthy population more accurately. There may be differences in the flagging of prior results with similar values performed with this method. Those prior results can be interpreted in the context of the updated reference intervals. Glucose 92 70 - 99 mg/dL 08/25/2024 7:18 AM [facility] Blood STRUCTURE OF RIGHT HAND / Unknown Venipuncture / Unknown 08/25/2024 6:52 AM STICKER ON 08/25/2024 6:56 AM STICKER ON us Kolby Gandara MD LAB - BLOOD ORDERABLES Final Result LABORATORY [facility] [address] [facility] Lab (1st floor, no room number) [place] [address], [facility] * US Ext Arterial Venous Dialys Acs Graft (08/24/2024 3:25 PM STICKER ON) Anatomical Region Laterality Modality Vascular, Abdomen/Pelvis Ultraso und Impressions 08/24/2024 4:23 PM STICKER ON IMPRESSION: 1. Patent arteriovenous fistula. 2. 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 ISIS REINOSO DO Narrative 08/24/2024 4:23 PM STICKER ON US EXTREMITY ARTERIAL VENOUS DIALYSIS ACCESS GRAFT 08/24/2024 3:25 PM CLINICAL HISTORY/INDICATION: Please duplex the vascular fistula access site for flow. End-stage renal failure requiring dialysis. COMPARISON: None relevant. TECHNIQUE: Grayscale, color-flow, and spectral waveform analysis with velocities were performed of the dialysis access circuit. FINDINGS: The arterial inflow is patent with diameters diameter of 5.7 mm. There is aneurysmal dilatation of the mid fistula measuring up to 3 cm, previously 2.0 cm. The AV anastomosis is patent. Procedure Note Isis Reinoso DO - 08/24/2024 US EXTREMITY ARTERIAL VENOUS DIALYSIS ACCESS GRAFT 08/24/2024 3:25 PM CLINICAL HISTORY/INDICATION: Please duplex the vascular fistula access site for flow. End-stage renal failure requiring dialysis. COMPARISON: None relevant. TECHNIQUE: Grayscale, color-flow, and spectral waveform analysis with velocities were performed of the dialysis access circuit. FINDINGS: The arterial inflow is patent with diameters diameter of 5.7 mm. There is aneurysmal dilatation of the mid fistula measuring up to 3 cm, previously 2.0 cm. The AV anastomosis is patent. IMPRESSION: 1. Patent arteriovenous fistula. 2. 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 ISIS REINOSO DO us Mateo Gonzalez MD IMG US ORDERABLES Final Result * (ABNORMAL) Troponin T, High Sensitivity (07/12/2024 [...] injury, and urgent clinical attention is required. If the 2-0 hours increase is <7 [...] 4:23 AM CDT 07/12/2024 4:25 AM CDT us Avery Fernando MD LAB - BLOOD ORDERABLES Final Res ult LABORATORY [facility] [address] [facility] Lab (1st floor, no room number) [place] [address] * XR Chest 2 Views (07/12/2024 3:15 AM CDT) Anatomical Region Laterality Modality Chest Digital Radiogra phy 07/12/2024 3:15 AM CDT Impressions 07/12/2024 3:18 AM CDT IMPRESSION: Low lung volumes but the lungs appear clear. Normal heart size and pulmonary vascularity. No pleural fluid or pneumothorax. Narrative 07/12/2024 3:18 AM CDT EXAM: XR CHEST 2 VIEWS LOCATION: [facility] DATE: 07/12/2024 INDICATION: ams COMPARISON: 03/11/2024. Procedure Note Pavan Sanon MD - 07/12/2024 EXAM: XR CHEST 2 VIEWS LOCATION: [facility] DATE: 07/12/2024 INDICATION: ams COMPARISON: 03/11/2024. IMPRESSION: Low lung volumes but the lungs appear clear. Normal heart sizeand pulmonary vascularity. No pleural fluid or pneumothorax. us Avery Fernando MD IM DIAGNOSTIC IMAGING ORDERABLE S Final Result * CT Head Perfusion w Contrast (07/12/2024 1:38 AM CDT) Anatomical Region Laterality Modality Head, SUBRAD CT NEURO, SUBRAD CT NEURO, UMP CT N EURO Computed Tomography 07/12/2024 1:38 AM CDT Impressions 07/17/2024 12:49 PM CDT IMPRESSION: HEAD CT: 1. No CT finding of a mass, hemorrhage or focal area suggestive of acute infarct. 2. Mild age-related changes. HEAD CTA: 1. No discrete vessel occlusion, significant stenosis, aneurysm or high flow vascular malformation involving the arteries of the [place]. NECK CTA: 1. Normal configuration [...] CONTRAST, CTA HEAD NECK W CONTRAST LOCATION: [facility] DATE: 07/12/2024 INDICATION: ams [...] intracranial hemorrhage, extraaxial collection, or mass effect. No CT evidence of acute [...] CONTRAST, CTA HEAD NECK W CONTRAST LOCATION: [facility] DATE: 07/12/2024 INDICATION: ams [...] vascular malformation involving the arteries of the [place]. NECK CTA: 1. Normal configuration of [...] 1:49 am on 07/12/2024. Avery Fernando MD [facility] CT ORDERABLES Final Result * CTA Head Neck with Contrast (07/12/2024 1:29 AM CDT) Anatomical Region Laterality Modality Head, SUBRAD CT NEURO, SUBRA D CT NEURO, UMP CT NEURO, RAD CT Computed Tomography 07/12/2024 1:29 AM CDT Impressions 07/12/2024 1:51 AM CDT IMPRESSION: HEAD CT: 1. No CT finding of a mass, hemorrhage or focal area suggestive of acute infarct. 2. Mild age-related changes. HEAD CTA: 1. No discrete vessel occlusion, significant stenosis, aneurysm or high flow vascular malformation involving the arteries of the [place]. NECK CTA: 1. Normal configuration [...] CONTRAST, CTA HEAD NECK W CONTRAST LOCATION: [facility] DATE: 07/12/2024 INDICATION: ams [...] intracranial hemorrhage, extraaxial collection, or mass effect. No CT evidence of acute [...] CONTRAST, CTA HEAD NECK W CONTRAST LOCATION: [facility] DATE: 07/12/2024 INDICATION: ams [...] vascular malformation involving the arteries of the [place]. NECK CTA: 1. Normal configuration of [...] 1:49 am on 07/12/2024. Avery Fernando MD [facility] CT ORDERABLES Final Result * CT Head w/o Contrast (07/12/2024 1:25 AM CDT) Anatomical Region Laterality Modality Head, SUBRAD CT NEURO, SUBRA D CT NEURO, UMP CT NEURO, RAD CT Computed Tomography 07/12/2024 1:25 AM CDT Impressions 07/12/2024 1:51 AM CDT IMPRESSION: HEAD CT: 1. No CT finding of a mass, hemorrhage or focal area suggestive of acute infarct. 2. Mild age-related changes. HEAD CTA: 1. No discrete vessel occlusion, significant stenosis, aneurysm or high flow vascular malformation involving the arteries of the [place]. NECK CTA: 1. Normal configuration [...] CONTRAST, CTA HEAD NECK W CONTRAST LOCATION: [facility] DATE: 07/12/2024 INDICATION: ams [...] intracranial hemorrhage, extraaxial collection, or mass effect. No CT evidence of acute [...] CONTRAST, CTA HEAD NECK W CONTRAST LOCATION: [facility] DATE: 07/12/2024 INDICATION: ams [...] vascular malformation involving the arteries of the [place]. NECK CTA: 1. Normal configuration of [...] 07/12/2024. Avery Fernando MD IMG CT ORDERABLES Final Result * Extra Red Top Tube (07/12/2024 1:14 AM CDT) Pathologist [facility] Hold Specimen JIC 07/12/2024 2:31 AM CDT [facility] Blood BLOOD SPECIMEN / Unknown Venipuncture / Unknown 07/12/2024 1:14 AM CDT 07/12/2024 1:23 AM CDT Avery Fernando MD LAB - BLOOD ORDERABLES Final Res ult LABORATORY [facility] [address] Lab (1st floor, no room number) [place] [address], [facility] * Adult Type and Screen (07/12/2024 1:14 AM CDT) ABO/RH(D) O POS 07/12/2024 1:01 AM CDT RH BLOOD BANK Antibody Screen Negative Negative 07/12/2024 1:01 AM CDT RH BLOOD BANK SPECIMEN EXPIRATION DATE [id number] 07/12/2024 1:01 AM CDT RH BLOOD BANK Blood BLOOD SPECIMEN / Unknown Venipuncture / Unknown 07/12/2024 1:14 AM CDT 07/12/2024 1:23 AM CDT Avery Fernando MD LAB - BLOOD BANK TEST ORDER Summer l Result BLOOD BANK [address] [place] [address] * Lactic acid whole blood (07/12/2024 1:14 AM CDT) Lactic Acid 0.8 0.7 - 2.0 mmol/L 07/12/2024 1:27 AM CDT LABORATORY Blood BLOOD SPECIMEN / Unknown Venipuncture / Unknown 07/12/2024 1:14 AM CDT 07/12/2024 1:23 AM CDT Avery Fernando MD LAB - BLOOD ORDERABLES Final Res ult Performing Organization Address City/[facility]/ZIP Co de Phone Number LABORATORY [facility] [address] [facility] [facility], no room number) [place] [address] * Hepatic function panel (07/12/2024 1:14 [...] CDT Avery Fernando MD LAB - BLOOD ORDERABLES Final Res ult [facility]ATORY [facility] [address] Lab (1st floor, no room number) [place] [address] * Blood Culture Peripheral Blood (07/12/2024 1:14 AM CDT) Culture No Growth 07/17/2024 4:46 AM CDT [facility] Blood BLOOD SPECIMEN / Unknown Venipuncture / Unknown 07/12/2024 1:14 AM CDT 07/12/2024 1:23 AM CDT Avery Fernando MD LAB - MICRO GENERAL ORDERABLES F inal Result [facility] Inf. Diseases Diag. Lab [address] [place] [address], [facility] * (ABNORMAL) Glucose by meter (07/12/2024 1:13 AM CDT) GLUCOSE BY METER POCT 133(H) 70 - 99 mg/dL 07/12/2024 1:20 AM CDT [facility] POC Blood, venous BLOOD SPECIMEN / Unknown 07/12/2024 1:13 AM CDT 07/12/2024 1:20 AM CDT Avery Fernando MD LAB - BEAKER POCT Final Result [facility]AT[facility] POC [facility] [address] Lab (1st floor, no room number) [place] [address], [facility] * EKG 12-lead, tracing only (07/12/2024 12:24 AM CDT) Systolic Blood Pressure mmHg RADIOLOGY RESULTS Diastolic Blood Pressure mmHg RADIOLOGY RESULTS Ventricular Rate 65 BPM RAD IOLOGY RESULTS Atrial Rate 65 BPM RADIOLOG Y RESULTS OH Interval 234 ms RADIOLOG Y RESULTS QRS Duration 112 ms RADIOLO GY RESULTS QT 430 ms RADIOLOGY RESULTS QTc 447 ms RADIOLOGY RESULTS P [place] 53 degrees RADIOLOGY RESULTS R AXIS 10 degrees RADIOLOGY RESULTS T [place] 51 degrees RADIOLOGY RESULTS Interpretation ECG Sinus rhythm with 1st degree A-V block Otherwise normal ECG When compared with ECG of 23-May-2024 17:08, Criteria for Septal infarct are no longer Present Unconfirmed report - interpretation of this ECG is computer generated - see medical record for final interpretation Confirmed by - EMERGENCY ROOM, PHYSICIAN ([id number]), editor in chief YISSEL VELASQUEZ ([id number]) on 07/12/2024 6:51:31 AM RADIOLOGY RESULTS 07/12/2024 12:2 4 AM CDT 07/12/2024 6:51 AM CDT us Avery Fernando MD ECG ORDERABLES Edited Result - Final RADIOLOGY RESULTS * (ABNORMAL) Renal panel (03/12/2024 6:06 AM [...] 6:06 AM CDT 03/12/2024 6:10 AM CDT us Eileen Earl MD LAB - BLOOD ORDERABLES Fin al Result [facility] [address] [facility] Lab (1st floor, no room number) [place] [address], [facility] * COLONOSCOPY (03/08/2024 1:04 PM CDT) [facility] Signature COLONOSCOPY [facility] Patient Name: Herminio Victor Procedure Date: 03/08/2024 1:04 PM Date of : 1965 Admit Type: Inpatient Age: 58 Gender: Male Attending MD: EILEEN EARL MD, Total Sedation Time: 20 minutes Instrument Name: 222 - Adult Colonoscope Procedure: Colonoscopy Indications: Anemia Providers: EILEEN EARL MD (Doctor) Referring MD: Medicines: Midazolam 0.5 mg IV, Fentanyl 50 micrograms IV Complications: No immediate complications. Procedure: Pre-Anesthesia Assessment: - Prior to the procedure, a History and Physical was performed, and patient medications and allergies were reviewed. The patient is unable to give consent secondary to the patient being legally incompetent to consent. The risks and benefits of the procedure and the sedation options and risks were discussed with the patient's relative. All questions were answered and informed consent was obtained. Patient identification and proposed procedure were verified by the physician in the endoscopy suite. Mental Status Examination: alert and oriented. Airway Examination: normal oropharyngeal airway and neck mobility. Respiratory Examination: clear to auscultation. CV Examination: systolic murmur. Prophylactic Antibiotics: The patient does not require prophylactic antibiotics. Prior Anticoagulants: The patient has taken no anticoagulant or antiplatelet agents. ASA Grade Assessment: III - A patient with severe systemic disease. After reviewing the risks and benefits, the patient was deemed in satisfactory condition to undergo the procedure. The anesthesia plan was to use moderate sedation / analgesia (conscious sedation). Immediately prior to administration of medications, the patient was re-assessed for adequacy to receive sedatives. The heart rate, respiratory rate, oxygen saturations, blood pressure, adequacy of pulmonary ventilation, and response to care were monitored throughout the procedure. The physical status of the patient was re-assessed after the procedure. After obtaining informed consent, the colonoscope was passed under direct vision. Throughout the procedure, the patient's blood pressure, pulse, and oxygen saturations were monitored continuously. The Olympus Adult Colonoscope, Model # CF-SP275Q, Censitrac # [id number] was introduced through the anus and advanced to the terminal ileum. The colonoscopy was performed without difficulty. The patient tolerated the procedure well. The quality of the bowel preparation was poor. Findings: A moderate amount of stool was found in the entire colon. This was yellow. No blood or evidence of bleeding. A 3 mm polyp was found in the rectum. The polyp was sessile. The polyp was removed with a cold biopsy forceps. Resection and retrieval were complete. Impression: - Preparation of the colon was poor. - Stool in the entire examined colon. - One 3 mm polyp in the rectum, removed with a cold biopsy forceps. Resected and retrieved. Recommendation: No reason for anemia seen. Could anemia be from hemolysis? If it is thought GI losses are contributing, can do an outpatient pill camera study. OK to restart anticoagulation. Repeat exam in seven years. ____ EILEEN EARL MD 03/08/2024 1:38:41 PM I was physically present for the entire viewing portion of the exam. EILEEN EARL MD Number of Addenda: 0 Note Initiated On: 03/08/2024 1:04 PM Procedure Date: 03/08/2024 1:04:50 PM Scope Withdrawal Time: 0 hours 11 minutes 55 seconds Total Procedure Duration: 0 hours 17 minutes 23 seconds Estimated Blood Loss: Scope In: 1:12:27 PM Scope Out: 1:29:50 PM RADIOLOGY RESULTS 03/08/2024 1:04 PM CDT us Eileen Earl MD PROCEDURES Final Resu lt RADIOLOGY RESULTS * (ABNORMAL) Occult blood stool (02/24/2024 11:31 AM CDT) Occult Blood Positive(A ) Negative JOJO 02/24/2024 11:40 AM CDT LABORATORY Stool RECTAL CONTENTS / Unknown Non-blood Collection / Unknown 02/24/2024 11:31 AM CDT 02/24/2024 11:38 AM CDT us Jae Noel MD LAB - STOOLS ORDERABLES Final Re sult LABORATORY [facility] Acute Care Lab [address] Lab (1st floor, no room number) [place] [address] * Hepatitis C (HIM External Result) (01/04/2022 12:00 PM CDT) Hep C HIM See Scanned Document EXTERNAL LAB Comment:Nonreactive 01/04/2022 12:0 0 PM CDT Narrative EXTERNAL LAB - 01/04/2022 12:00 PM CDT LAB RESULT [facility] [address] [place] [address] us Provider Outside LAB - HIM EXTERNAL RESULT Final Result Performing Organization Address [facility] Co de Phone Number EXTERNAL LAB External Lab * (ABNORMAL) Lipid panel (12/07/2017 12:34 PM STICKER ON) Cholesterol 115 <200 mg/dL 12/07/2017 1:27 PM [facility] Triglycerides 84 <150 mg/dL 12/07/2017 1:27 PM [facility] HDL Cholesterol 37(L) >39 mg/dL 8 1:27 PM [facility] LDL Cholesterol Calculated 61 <100 mg/dL 12/07/2017 1:27 PM [facility] Comment:Desirable: <100 mg/d l Non HDL Cholesterol 78 <130 mg/dL 12/07/2017 1:27 PM [facility] Blood specimen (specimen) 12/07/2017 12:34 PM STICKER ON 12/07/2017 12:58 PM STICKER ON us Michele Fuentes MD LAB - BLOOD ORDERABLES Final Result [facility] [address] [place] [address], [facility] [phone] from Last 3 Months or Most Recently Relevant to Health Maintenance Insurance [place] Advance Directives For more information, please contact: [phone] * Full Code (Latest Code Status on File) Date Activated Date Inactivated Comments 08/24/2024 3:27 PM 08/25/2024 5:22 PM All basic and advanced life-sustaining interventions are performed as appropriate Question Answer Comments Code status determined by: Discussion with patie nt/ legal decision maker * Full Code Date Activated Date Inactivated Comments 05/23/2024 8:47 [...] Discussion with patie nt/ legal decision maker Care Teams Retail Coverage Merchandiser Relationship Specialty Start Date End Date Preet Huff PCP - General 06/24/11
--- OUTSIDE RECORDS SUMMARY | 2024-08-31 13:04 | XMS_ITS | Encounter Summary ---
Author Organization [place] Address [address] [facility] [place] [address] Care Team Providers Care Maintenance Carpenter Name Role Phone Preet Huff Hans Primary Care Provider [phone] Reason for Visit * Reason Comments Altered Mental Status Encounter Details Date Type Department Care Team (Late st Contact Info) Description 07/12/2024 12:18 AM CDT - 07/12/2024 7:24 AM CDT [facility] Emergency Dept [address] [place] [address] [phone] Avery Fernando MD [facility] [address] [place], [place] [id number] Rand Schwab MD [facility] [address] [address] Transient hypotension; ESRD (end stage renal disease) [...] on file Legal Sex Male 5:12 AM ZIGZAG APPLIQUER Gender Identity Male 12/05/2017 10:39 AM ZIGZAG APPLIQUER Sexual Orientation Not on file documented as of this encounter Last Filed Vital Signs Vital Sign Reading Time Taken Comments Blood Pressure 131/66 07/12/2024 6:50 AM CDT Pulse 67 07/12/2024 6:50 AM CDT Temperature 36.8 C (98.2 F) 07/12/2024 1:00 AM CDT Respiratory Rate 18 07/12/2024 12:24 AM CDT [...] this encounter Medications at Time of Discharge B Stjmkiw-K-Kgxut Acid (WESCAPS PO) Take 1 capsule by mouth at bedtime. calcium acetate (PHOSLO) 667 MG CAPS capsule Take 1,334 mg by mouth 3 times daily (with meals). calcium acetate (PHOSLO) 667 MG CAPS capsule Take 1,334 mg by mouth Take with snacks or supplements. Take 1 capsule (667 mg) once daily with a snack pantoprazole (PROTONIX) 40 MG EC tablet Take 40 mg by mouth 2 times daily (before meals). sennosides (SENOKOT) 8.6 MG tablet Take 2 tablets by mouth 2 times daily. metoprolol tartrate (LOPRESSOR) 100 MG tablet Take 100 mg by mouth every evening 4 warfarin ANTICOAGULANT (COUMADIN) 5 MG tablet Take 1 tablet (5 mg) by mouth Tuesday through Tuesday, no dose on Sat and SunTake 1 tablet (5 mg) by mouth Tuesday through Tuesday, no dose on Sat and Sun 05/30/2024 4 documented as of this encounter ED Notes [...] EMS is due to low blood pressure. MD notified. * Aster Menjivar RN - 07/12/2024 2:00 AM CDT Attempted to call patient's aunt, Thelma, at [phone], no answer. * Alecia Cano MD - 07/12/2024 1:14 AM CDT [facility] Stroke Telephone Note I was called [...] To page me or covering stroke neurology [employer] team member, click here: AMCOM Choose Office Services Associate tab at top, then select NEUROLOGY/ALL SITES [...] Sleep apnea CPAP ??? Syncope Medications B Volotwt-P-Cgqlw Acid (WESCAPS PO) calcium acetate (PHOSLO) 667 [...] EMBOLECTOMY; Surgeon: Rober Saravia MD; Location: OR ??? 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 NECK CTA: 1. 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 NECK CTA: 1. Normal configuration [...] with 1st degree AVB Rate 65 bpm. MT interval 234 ms. QRS duration 112 ms. QT/QTc 430/447 ms. P-R-T axes 53 10 51. Independent Interpretation None ED Course Medications Administered Medications - No data to display Procedures Procedures Discussion of Management Neurology, stroke neurology ED Course 005 Exam Additional Documentation None Medical Decision Making / Diagnosis [facility] Diagnoses: None MIPS None MDM [...] RN - 07/12/2024 12:18 AM CDT Bed: [facility] Expected date: Expected time: Means of arrival: Comments: 3 ED RNs @2300, 11 pts max documented in this encounter Plan of Treatment Upcoming Encounters Date Type Department Care Team (Late st Contact Info) Description 09/27/2024 1:00 PM ZIGZAG APPLIQUER Office Visit [facility] [place] [address] [phone] Rober Saravia MD [address] [place] [address] documented as of this encounter Procedures Procedure [...] LAB - BLOOD ORDERABLES Final Res ult [facility] Acute Care Lab [address] [facility] Lab (1st floor, no room number) [place] [address] * XR Chest 2 Views (07/12/2024 3:15 AM CDT) Anatomical Region Laterality Modality Chest Digital Radiogra phy 07/12/2024 3:15 AM CDT Impressions 07/12/2024 3:18 AM CDT IMPRESSION: Low lung volumes but the lungs appear clear. Normal heart size and pulmonary vascularity. No pleural fluid or pneumothorax. Narrative 07/12/2024 3:18 AM CDT EXAM: XR CHEST 2 VIEWS LOCATION: [facility] DATE: 07/12/2024 INDICATION: ams COMPARISON: 03/11/2024. Procedure Note Pavan Sanon MD - 07/12/2024 EXAM: XR CHEST 2 VIEWS LOCATION: [facility] DATE: 07/12/2024 INDICATION: ams COMPARISON: 03/11/2024. IMPRESSION: Low lung volumes but the lungs appear clear. Normal heart sizeand pulmonary vascularity. No pleural fluid or pneumothorax. 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 NECK CTA: 1. Normal configuration [...] CONTRAST, CTA HEAD NECK W CONTRAST LOCATION: [facility] DATE: 07/12/2024 INDICATION: ams and weakness. COMPARISON: [...] CONTRAST, CTA HEAD NECK W CONTRAST LOCATION: [facility] DATE: 07/12/2024 INDICATION: ams and weakness. 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 NECK CTA: 1. Normal configuration of [...] Dr. Fernando at 1:49 am on 07/12/2024. 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 NECK CTA: 1. Normal configuration [...] CONTRAST, CTA HEAD NECK W CONTRAST LOCATION: [facility] DATE: 07/12/2024 INDICATION: ams and weakness. COMPARISON: [...] CONTRAST, CTA HEAD NECK W CONTRAST LOCATION: [facility] DATE: 07/12/2024 INDICATION: ams and weakness. 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 NECK CTA: 1. Normal configuration of [...] 1:49 am on 07/12/2024. 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 NECK CTA: 1. Normal configuration [...] CONTRAST, CTA HEAD NECK W CONTRAST LOCATION: [facility] DATE: 07/12/2024 INDICATION: ams and weakness. COMPARISON: [...] CONTRAST, CTA HEAD NECK W CONTRAST LOCATION: [facility] DATE: 07/12/2024 INDICATION: ams and weakness. 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 NECK CTA: 1. Normal configuration of [...] MD IMG CT ORDERABLES Final Result * Adult Type and Screen (07/12/2024 1:14 AM CDT) ABO/RH(D) O POS 07/12/2024 1:01 AM CDT RH BLOOD BANK Antibody Screen Negative Negative 07/12/2024 1:01 AM CDT RH BLOOD BANK SPECIMEN EXPIRATION DATE [id number] 07/12/2024 1:01 AM CDT RH BLOOD BANK Blood BLOOD SPECIMEN / Unknown Venipuncture / Unknown 07/12/2024 1:14 AM CDT 07/12/2024 1:23 AM CDT Avery Fernando MD LAB - BLOOD BANK TEST ORDER Summer l Result BLOOD BANK [address] [place] [address] * Extra Red Top Tube (07/12/2024 1:14 AM CDT) Hold Specimen JIC 07/12/2024 2:31 AM CDT RH LABORATORY Blood BLOOD SPECIMEN / Unknown Venipuncture / Unknown 07/12/2024 1:14 AM CDT 07/12/2024 1:23 AM CDT us Avery Fernando MD LAB - BLOOD ORDERABLES Final Res ult RH LABORATORY [facility] Acute Care Lab [address] [facility] Lab (1st floor, no room number) [place] [id number] * (ABNORMAL) CBC with platelets [...] 1:14 AM CDT 07/12/2024 1:23 AM CDT us Avery Fernando MD LAB - BLOOD ORDERABLES Final Res ult RH LABORATORY [facility] Acute Care Lab [address] Lab (1st floor, no room number) [place] [address], [facility] * (ABNORMAL) INR (07/12/2024 1:14 AM CDT) INR 4.68(H) 0.85 - 1.15 07/12/2024 1:49 AM CDT RH LABORATORY Blood BLOOD SPECIMEN / Unknown Venipuncture / Unknown 07/12/2024 1:14 AM CDT 07/12/2024 1:23 AM CDT Avery Fernando MD LAB - BLOOD ORDERABLES Final Res ult RH LABORATORY [facility] Acute Care Lab [address] Lab (1st floor, no room number) [place] [address] * Blood Culture Peripheral Blood (07/12/2024 1:14 AM CDT) Culture No Growth 07/17/2024 4:46 AM CDT [facility] Blood BLOOD SPECIMEN / Unknown Venipuncture / Unknown 07/12/2024 1:14 AM CDT 07/12/2024 1:23 AM CDT Avery Fernando MD LAB - MICRO GENERAL ORDERABLES F inal Result [facility] LABORATORY [facility] Inf. Diseases Diag. Lab [address] [place] [address] * Hepatic function panel (07/12/2024 1:14 [...] - BLOOD ORDERABLES Final Res ult LABORATORY [facility] Acute Care Lab [address] Lab (1st floor, no room number) [place] [phone] [place] [address] * Lactic acid whole blood (07/12/2024 1:14 AM CDT) Lactic Acid 0.8 0.7 - 2.0 mmol/L 07/12/2024 1:27 AM CDT LABORATORY Blood BLOOD SPECIMEN / Unknown Venipuncture / Unknown 07/12/2024 1:14 AM CDT 07/12/2024 1:23 AM CDT Avery Fernando MD LAB - BLOOD ORDERABLES Final Res ult LABORATORY [facility] [address] [facility], no room number) [address] * (ABNORMAL) Troponin T, High Sensitivity (07/12/2024 [...] 1:14 AM CDT 07/12/2024 1:23 AM CDT us Avery Fernando MD LAB - BLOOD ORDERABLES Final Res ult LABORATORY [facility] Acute Care Lab [address] Lab (1st floor, no room number) [place] [address], [facility] * (ABNORMAL) Basic [...] 1:43 AM CDT LABORATORY Comment:eGFR calculated usin g [...] - BLOOD ORDERABLES Final Res ult LABORATORY [facility] Lab [address] Lab (1st floor, no room number) [place] [address] * (ABNORMAL) Glucose by meter (07/12/2024 1:13 AM CDT) GLUCOSE BY METER POCT 133(H) 70 - 99 mg/dL 07/12/2024 1:20 AM CDT LABORATORY POC Blood, venous BLOOD SPECIMEN / Unknown 07/12/2024 1:13 AM CDT 07/12/2024 1:20 AM CDT us Avery Fernando MD LAB - BEAKER POCT Final Result Performing Organization Address City/[facility]/ZIP Co de Phone Number LABORATORY [facility] Lab [address] Lab (1st floor, no room number) [place] [phone], [facility] * EKG 12-lead, tracing only (07/12/2024 12:24 AM CDT) Systolic Blood Pressure mmHg RADIOLOGY RESULTS Diastolic Blood Pressure mmHg RADIOLOGY RESULTS Ventricular Rate 65 BPM RAD IOLOGY RESULTS Atrial Rate 65 BPM RADIOLOG Y RESULTS MT Interval 234 ms RADIOLOG Y RESULTS QRS Duration 112 ms RADIOLO GY RESULTS QT 430 ms RADIOLOGY RESULTS QTc 447 ms RADIOLOGY RESULTS P [place] 53 degrees RADIOLOGY RESULTS R AXIS 10 degrees RADIOLOGY RESULTS T [place] 51 degrees RADIOLOGY RESULTS Interpretation ECG Sinus rhythm with 1st degree A-V block Otherwise normal ECG When compared with ECG of 23-May-2024 17:08, Criteria for Septal infarct are no longer Present Unconfirmed report - interpretation of this ECG is computer generated - see medical record for final interpretation Confirmed by - EMERGENCY ROOM, PHYSICIAN ([id number]), photography editor YISSEL VELASQUEZ ([id number]) on 07/12/2024 6:51:31 AM RADIOLOGY RESULTS 07/12/2024 12:2 4 AM CDT 07/12/2024 6:51 AM CDT us Avery Fernando MD ECG ORDERABLES Edited Result - Final RADIOLOGY RESULTS documented in this encounter Visit [...] dose 0348 ($Given - Provi norah: Aster Menjivar, LINDA) sodium chloride 0.9 % bag for CT [...] 0156 ($New Bag - Pro vider: Aster Menjivar, LINDA)0300 (Stopped - Provider: Aster Menjivar, LINDA) Linked Groups Order Group 1: iopamidol ([id number]) [...] scan. documented in this encounter Care Teams Maintenance Carpenter Relationship Specialty Start Date End Date Preet Huff PCP - General 06/24/11 documented as of this encounter
--- OUTSIDE RECORDS SUMMARY | 2024-08-31 13:04 | XMS_ITS | Encounter Summary ---
Author Organization [place] Address [address] [facility] [place] [address] Care Team Providers Care Ritual Circumciser Name Role Phone HuffPreet Primary Care Provider [phone] Reason for Visit * Reason Onset Date Comments Clinic Care Coordination - Follow-up 08/27/2024 Follow up after ED visit 08/24/2024. 05/28/[address] Buenrostro. Completed US Ext Arterial Venous Dialysis Acs Graft on 08/24/2024. Encounter Details Date Type Department Care Team (Late st Contact Info) Description 08/27/2024 Telephone [facility] [place] [address] [place] [phone] Rober Buenrostro MD [address] [place] [address] Clinic Care Coordination - Follow-up (Follow up after ED visit 08/24/2024. 05/28/[address] Buenrostro. Completed US Ext Arterial Venous Dialysis Acs Graft on 08/24/2024.) Social History Tobacco Use Types Packs/Day Years [...] Date Recorded Do you have housing? (Henry g is defined as stable permanent housing and does not include staying ouside in a car, in a tent, in an abandoned building, in an overnight fdc, or couch-surfing.) Patient unable to answer 08/24/2024 Are you worried about losing your housing? Patie nt unable to answer 08/24/2024 Financial Resource [...] on file Legal Sex Male 5:12 AM REMOTE CONTROL ASSEMBLER Gender Identity Male 12/05/2017 10:39 AM REMOTE CONTROL ASSEMBLER Sexual Orientation Not on file documented as of this encounter Miscellaneous Notes * Telephone Encounter - Rand Cifuentes - 08/30/2024 10:02 AM CST Patient is scheduled TE CONTROL ASSEMBLER * Telephone Encounter - Andria Pardo - 08/28/2024 11:13 AM CST EDMAR for Laura to call us back to schedule: NEW VASCULAR PATIENT consult with Dr. Buenrostro Please schedule this at next available Appt note: Follow up after ED visit 08/24/2024. 05/28/[address] Buenrostro. Completed US Ext Arterial Venous Dialysis Acs Graft on 08/24/2024. 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 Follow up after ED visit 08/24/2024. 05/28/[address] Buenrostro. Completed US Ext Arterial Venous Dialysis Acs Graft on 08/24/2024. Routing to scheduling to coordinate the following: NEW VASCULAR PATIENT consult with Dr. Buenrostro Please schedule this at next available Appt note: Follow up after ED visit 08/24/2024. 05/28/[address] Buenrostro. Completed US Ext Arterial Venous Dialysis Acs Graft on 08/24/2024. TE CONTROL ASSEMBLER * Telephone Encounter - Andra Gilliland - 08/27/2024 9:47 AM CST [facility] Who is the name of the provider?: ROBER BUENROSTRO What is the location you see this provider at/preferred location?: [place] Person calling / Facility: Laura MCKEONtruck trailer final inspector with [facility] Phone number: [phone] Nurse call back needed: Yes or route to scheduling Reason for call: Dr Buenrostro patient was last seen 12/2019. truck trailer final inspector from [facility] is calling to schedule an appt. Patient was seen in ED on Tuesday/Sat for bleeding at his access site in his left thigh. Please call Laura MCKEON [phone] to schedule patient on a or as Patient has dialysisM, W, F Pharmacy location: n/a Outside Imaging: n/a Can we leave a detailed message on this number? YES 08/27/2024, 9:47 AM TE CONTROL ASSEMBLER documented in this encounter Plan of Treatment Upcoming Encounters Date Type Department Care Team (Late st Contact Info) Description 09/27/2024 1:00 PM REMOTE CONTROL ASSEMBLER Office Visit [facility] [place] [address] [phone] Rober Buenrostro MD [address] [place] [address] documented as of this encounter Visit Diagnoses Not on filedocumented in this encounter Care Teams Ritual Circumciser Relationship Specialty Start Date End Date Preet Huff PCP - General 06/24/11 documented as of this encounter
--- OUTSIDE RECORDS SUMMARY | 2024-08-31 13:04 | XMS_ITS | Encounter Summary ---
Author Organization [place] Address [address] [facility] [place] [address] Care Team Providers Care Job Analyst Name Role Phone HuffPreet cool Primary Care Provider [phone] Encounter Details Date Type Department Care Team [...] on file Legal Sex Male 5:12 AM AIR PUMPER Gender Identity Male 12/05/2017 10:39 AM AIR PUMPER Sexual Orientation Not on file documented as of this encounter Plan of Treatment Upcoming Encounters Date Type Department Care Team (Late st Contact Info) Description 09/27/2024 1:00 PM AIR PUMPER Office Visit [facility] [place] [address] [place] [phone] Jaxon Saravia MD [address] [place] [phone] documented as of this encounter Visit Diagnoses Not on filedocumented in this encounter Care Teams Job Analyst Relationship Specialty Start Date End Date Preet Huff PCP - General 06/24/11 documented as of this encounter
--- OUTSIDE RECORDS SUMMARY | 2024-08-31 13:04 | XMS_ITS | Clinical Summary ---
Author Organization [place] Address [address] [facility] [place] [address] Care Team Providers Care Procedure Tech Name Role Phone Preet Huff Primary Care Provider [phone] Allergies No known active allergies Medications calcium acetate (PHOSLO) 667 MG CAPS capsule Take 1,334 mg by mouth 3 times daily (with meals). Active calcium acetate (PHOSLO) 667 MG CAPS capsule Take 1,334 mg by mouth Take with snacks or supplements . Take 1 capsule (667 mg) once daily with a snack Active B Prjkior-O-Rdhtx Acid (WESCAPS PO) Take 1 capsule by [...] 100 mg by mouth every evening 08/24/20 24 Discontinu ed(Med Rec(No AVS / No eCancel)) warfarin ANTICOAGULANT (COUMADIN) 5 MG tablet Take 1 tablet (5 mg) by mouth Tuesday through Tuesday, no dose on Sat and SunTake 1 tablet (5 mg) by mouth Tuesday through Tuesday, no dose on Sat and Sun 08/24/20 24 Discontinu ed(Stop at Discharge) Active Problems Problem [...] Date Type Department Care Team Description 08/27/2024 [facility] [place] [address] [place] [address] Jaxon Saravia MD Clinic Care Coordination - Follow-up (Follow up after ED visit 08/24/2024. 05/28/[address] Saravia. 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) Discharge Disposition: [facility] Facility 08/24/2024 Travel 07/12/2024 12:18 AM CDT - 07/12/2024 7:24 AM CDT Emergency [facility] Emergency Dept [address] [place] [address] Avery Fernando MD Richardson, Elizabeth, MD Transient hypotension; ESRD (end stage renal disease) on dialysis (H); Supratherapeutic INR Discharge Disposition: Home or Self Care 07/12/2024 Travel from Last 3 Months Immunizations Name [...] chcf, or couch-surfing.) Patient unable to answer 08/24/2024 [...] on file Legal Sex Male 5:12 AM ORTHOPEDIC TECHNICIAN Gender Identity Male 12/05/2017 10:39 AM ORTHOPEDIC TECHNICIAN Sexual Orientation Not on file Last Filed Vital Signs Vital Sign Reading Time Taken Comments Blood Pressure 105/48 08/25/2024 1:00 PM ORTHOPEDIC TECHNICIAN Pulse 66 08/25/2024 1:00 PM ORTHOPEDIC TECHNICIAN Temperature 36.5 C (97.7 F) 08/25/2024 1:00 PM ORTHOPEDIC TECHNICIAN Respiratory Rate 16 08/25/2024 1:00 PM ORTHOPEDIC TECHNICIAN Oxygen Saturation 100% 08/25/2024 1:00 PM ORTHOPEDIC TECHNICIAN Inhaled Oxygen Concentration - - Weight 88 kg (194 lb 1.6 oz) 08/25/2024 8:30 AM ORTHOPEDIC TECHNICIAN Height 162.6 cm (5' 4) 08/24/2024 5:27 PM ORTHOPEDIC TECHNICIAN Body Mass Index 33.32 08/24/2024 5:27 PM ORTHOPEDIC TECHNICIAN Plan of Treatment Upcoming Encounters Date Type Department Care Team (Late st Contact Info) Description 09/27/2024 1:00 PM ORTHOPEDIC TECHNICIAN Office Visit [facility] [place] [address] [place] [phone] Jaxon Saravia MD [address] [place] [address] Health Maintenance Due Date Last Done Comments [...] , 08/05/2021, 07/11/2020, Additional history exists BMP 11/25/2024 08/25/2024, 08/10, 07/12/2024, Additional history exists HEMOGLOBIN 02/22/2025 08/25/2024, 08/10, 07/12/2024, Additional history exists FIT 02/23/2025 02/24/2024, 06/14/2014 GLUCOSE 08/25/2027 08/25/2024, 08/10, 07/12/2024, Additional history exists COLONOSCOPY 03/08/2034 03/08/2024, 05/, 09/24/2013, Additional history exists COLORECTAL CANCER SCREENING [...] this topic Medical Devices Implanted Type Area Bullet Lubricating Machine Operator Device Identifier Shelf Expiration Date Model / Serial / Lot Graft Patch Vasc Xenosure Biologic 0.8x08cm 0.8p8 Implanted:Qty: 1 on 12/16/2017 by Jaxon Saravia MD at [facility] Bone/Tis rocco/Biol ogic Left: Iliac/Fem orals LEMAITRE VASCULAR IN 06/06/2023 0.8P8 / / [id number] Graft Pericardium 8x0.8cm Vascu-Guard Implanted:Qty: 1 on 10/20/2011 at [facility] Right: Arm [employer] 01/16/2016 [id number] / / [id number] Femoral Popliteal Artery Implanted:Qty: 1 on 05/03/2012 by Jaxon Saravia MD at [facility] Right: Groin 12/07/2021 [id number] / [id number] / Description:CADAVER FEMORAL ARTERY RINSED IN A AND B SOLUTION: A SOLUTION LOT #[id number] EXPIRATION DATE 01/09/2014 B SOLUTION LOT #[id number] EXPIRATION DATE 11/15/2013 Graft Propaten Taper [id number] Implanted:Qty: 1 on 08/09/2012 by Jaxon Saravia MD at [facility] Right: Leg 10/24/2015 [id number] / / [id number] Graft Propaten Taper [id number] Implanted:Qty: 1 on 06/20/2013 by Jaxon Saravia MD at [facility] Left: Groin [employer] 02/07/2017 [id number] / / [id number] Graft Pericardium 8x0.8cm Vascu-Guard Implanted:Qty: 1 on 05/08/2014 by Jaxon Saravia MD at [facility] Left: Leg [employer] 11/26/2018 [id number] / PN# [id number] / [id number] Procol Vascular Bioprosthesis Implanted:Qty: 1 on 07/02/2015 by Jaxno Saravia MD at [facility] Left: Groin 12/16/2018 [id number] -[id number] / [id number] / Procol Vascular Bioprosthesis Implanted:Qty: 1 on 08/13/2015 by Jaxon Saravia MD at [facility] Left: Groin 12/16/2018 [id number] -[id number] / [id number] / Graft Vasc Bioprosthesis Procol [id number] Implanted:Qty: 1 on 03/05/2016 by Jaxon Saravia MD at [facility] Left: Leg LEMAITRE VASCULAR IN 02/03/2019 [id number] -[id number] / [id number] / Procedures Procedure Name Priority Date/Time Associated Diagnosis Comments CBC WITH PLATELETS & DIFFERENTIAL STAT 08/25/2024 6:52 AM ORTHOPEDIC TECHNICIAN CBC WITH PLATELETS AND DIFFERENTIAL STAT 08/25/2024 6:52 AM ORTHOPEDIC TECHNICIAN INR Routine 08/25/2024 6:52 AM ORTHOPEDIC TECHNICIAN BASIC METABOLIC PANEL Routine 08/25/2024 6:52 AM ORTHOPEDIC TECHNICIAN US EXTREMITY ARTERIAL VENOUS DIALYSIS ACCESS GRAFT STAT 08/24/2024 3:25 PM ORTHOPEDIC TECHNICIAN BASIC METABOLIC PANEL STAT 08/24/2024 12:50 PM ORTHOPEDIC TECHNICIAN CBC WITH PLATELETS & DIFFERENTIAL STAT 08/24/2024 10:43 AM ORTHOPEDIC TECHNICIAN CBC WITH PLATELETS AND DIFFERENTIAL STAT 08/24/2024 10:43 AM ORTHOPEDIC TECHNICIAN INR STAT 08/24/2024 10:43 AM ORTHOPEDIC TECHNICIAN TROPONIN T, HIGH SENSITIVITY STAT 07/12/2024 4:23 [...] CDT LIPID PROFILE STAT 12/07/2017 12:34 PM ORTHOPEDIC TECHNICIAN 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 WBC Count 2.7(L) 4.0 - 11.0 10e3/uL 08/25/2024 6:58 AM ORTHOPEDIC TECHNICIAN [facility] RBC Count 4.40 4.40 - 5.90 10e6/uL 08/25/2024 6:58 AM ORTHOPEDIC TECHNICIAN [facility] Hemoglobin 11.4(L) 13.3 - 17.7 g/dL 08/25/2024 6:58 AM ORTHOPEDIC TECHNICIAN [facility] Hematocrit 36.5(L) 40.0 - 53.0 % 08/25/2024 6:58 AM ORTHOPEDIC TECHNICIAN [facility] MCV 83 78 - 100 fL 08/25/2024 6:58 AM ORTHOPEDIC TECHNICIAN [facility] MCH 25.9(L) 26.5 - 33.0 pg 08/25/2024 6:58 AM ORTHOPEDIC TECHNICIAN [facility] MCHC 31.2(L) 31.5 - 36.5 g/dL 08/25/2024 6:58 AM ORTHOPEDIC TECHNICIAN [facility] RDW 18.6(H) 10.0 - 15.0 % 08/25/2024 6:58 AM ORTHOPEDIC TECHNICIAN [facility] Platelet Count 112(L) 150 - 450 10e3/uL 08/25/2024 6:58 AM ORTHOPEDIC TECHNICIAN [facility] % Neutrophils 56 % 08/25/2024 6:58 AM ORTHOPEDIC TECHNICIAN [facility] % Lymphocytes 24 % 08/25/2024 6:58 AM ORTHOPEDIC TECHNICIAN [facility] % Monocytes 16 % 08/25/2024 6:58 AM ORTHOPEDIC TECHNICIAN [facility] % Eosinophils 3 % 08/25/2024 6:58 AM ORTHOPEDIC TECHNICIAN [facility] % Basophils 0 % 08/25/2024 6:58 AM ORTHOPEDIC TECHNICIAN [facility] % Immature Granulocytes 0 % 08/25/2024 6:58 AM ORTHOPEDIC TECHNICIAN [facility] NRBCs per 100 WBC 0 <1 /100 024 6:58 AM ORTHOPEDIC TECHNICIAN [facility] Absolute Neutrophils 1.5(L) 1.6 - 8.3 10e3/uL 08/25/2024 6:58 AM ORTHOPEDIC TECHNICIAN [facility] Absolute Lymphocytes 0.7(L) 0.8 - 5.3 10e3/uL 08/25/2024 6:58 AM ORTHOPEDIC TECHNICIAN [facility] Absolute Monocytes 0.4 0.0 - 1.3 10e3/uL 08/25/2024 6:58 AM ORTHOPEDIC TECHNICIAN [facility] Absolute Eosinophils 0.1 0.0 - 0.7 10e3/uL 08/25/2024 6:58 AM ORTHOPEDIC TECHNICIAN [facility] Absolute Basophils 0.0 0.0 - 0.2 10e3/uL 08/25/2024 6:58 AM ORTHOPEDIC TECHNICIAN [facility] Absolute Immature Granulocytes 0.0 <=0.4 10e3/uL 08/25/2024 6:58 AM ORTHOPEDIC TECHNICIAN [facility] Absolute NRBCs 0.0 10e3/uL 08/25/2024 6:58 AM ORTHOPEDIC TECHNICIAN [facility] Blood STRUCTURE OF RIGHT HAND / Unknown Venipuncture / Unknown 08/25/2024 6:52 AM ORTHOPEDIC TECHNICIAN 08/25/2024 6:56 AM ORTHOPEDIC TECHNICIAN us Kolby Gandara MD LAB - BLOOD ORDERABLES Final Result [facility] Acute Care Lab [address] Lab (1st floor, no room number) [place] [address], [facility] * (ABNORMAL) INR (08/25/2024 6:52 AM ORTHOPEDIC TECHNICIAN) Only the most recent of3 resultswithin the time period is included. [facility] INR 2.01(H) 0.85 - 1.15 08/25/2024 7:[address] [facility] Blood STRUCTURE OF RIGHT HAND / Unknown Venipuncture / Unknown 08/25/2024 6:52 AM ORTHOPEDIC TECHNICIAN 08/25/2024 6:56 AM ORTHOPEDIC TECHNICIAN us Kolby Gandara MD LAB - BLOOD ORDERABLES Final Result LABORATORY [facility] Acute Care Lab [address] [facility] [address] Lab (1st floor, no room number) [place] [address], [facility] * (ABNORMAL) Basic metabolic panel (08/25/2024 6:52 AM ORTHOPEDIC TECHNICIAN) Only the most recent of3 resultswithin the time period is included. Pathologist [facility] Sodium 128(L) 135 - 145 mmol/L 08/25/2024 7:[address] [facility] Potassium 4.3 3.4 - 5.3 mmol/L 08/25/2024 7:[address] [facility] Chloride 88(L) 98 - 107 mmol/L 08/25/2024 7:[address] [facility] Carbon Dioxide (CO2) 23 22 - 29 mmol/L 08/25/2024 7:[address] [facility] Anion Gap 17(H) 7 - 15 mmol/L 08/25/2024 7:[address] [facility] Urea Nitrogen 57.7(H) 8.0 - 23.0 mg/dL 08/25/2024 7:[address] [facility] Creatinine 11.75(H) 0.67 - 1.17 mg/dL 08/25/2024 7:[address] [facility] GFR Estimate 4(L) >60 mL/min/1. 73m2 08/25/2024 7:[address] [facility] Comment:eGFR calculated 2020 CKD-EPI equation. Calcium 8.7(L) 8.8 - 10.4 mg/dL 08/25/2024 7:[address] [facility] Comment:Reference intervals for this test were updated on 04/24/2024 to reflect our healthy population more accurately. There may be differences in the flagging of prior results with similar values performed with this method. Those prior results can be interpreted in the context of the updated reference intervals. Glucose 92 70 - 99 mg/dL 08/25/2024 7:18 AM ORTHOPEDIC TECHNICIAN [facility] Blood STRUCTURE OF RIGHT HAND / Unknown Venipuncture / Unknown 08/25/2024 6:52 AM ORTHOPEDIC TECHNICIAN 08/25/2024 6:56 AM ORTHOPEDIC TECHNICIAN Kolby Gandara MD LAB - BLOOD ORDERABLES Final Result [facility] Lab [address] Lab (1st floor, no room number) [place] [address], [facility] * US Ext Arterial Venous Dialys Acs Graft (08/24/2024 3:25 PM ORTHOPEDIC TECHNICIAN) Anatomical Region Laterality Modality Vascular, Abdomen/Pelvis Ultraso und Impressions 08/24/2024 4:23 PM ORTHOPEDIC TECHNICIAN IMPRESSION: 1. Patent arteriovenous fistula. 2. 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 [facility] REINOSO DO Narrative 08/24/2024 4:23 PM ORTHOPEDIC TECHNICIAN US EXTREMITY ARTERIAL VENOUS DIALYSIS ACCESS GRAFT [...] cm, previously 2.0 cm. [facility] REINOSO DO Mateo Gonzalez MD [facility] US ORDERABLES Final Result * (ABNORMAL) Troponin T, High Sensitivity (07/12/2024 4:23 AM CDT) Only the most recent of2 resultswithin the time period is included. [facility] Troponin T, High Sensitivity 41(H) <=22 ng/L [...] - BLOOD ORDERABLES Final Res ult LABORATORY [facility] Acute Care Lab [address] [facility] Lab (1st floor, no room number) [place] [address], [facility] * XR Chest 2 Views (07/12/2024 3:15 AM CDT) Anatomical Region Laterality Modality Chest Digital Radiogra phy 07/12/2024 3:15 AM CDT Impressions 07/12/2024 3:18 AM CDT IMPRESSION: Low lung volumes but the lungs appear clear. Normal heart size and pulmonary vascularity. No pleural fluid or pneumothorax. Narrative 07/12/2024 3:18 AM CDT EXAM: XR CHEST 2 VIEWS LOCATION: [facility] DATE: 07/12/2024 INDICATION: ams COMPARISON: 03/11/2024. Procedure Note Pavan Sanon MD - 07/12/2024 EXAM: XR CHEST 2 VIEWS LOCATION: [facility] DATE: 07/12/2024 INDICATION: ams COMPARISON: 03/11/2024. IMPRESSION: Low lung volumes but the lungs appear clear. Normal heart sizeand pulmonary vascularity. No pleural fluid or pneumothorax. us Avery Fernando MD IMG DIAGNOSTIC IMAGING ORDERABLE S Final Result * [...] vascular malformation involving the arteries of the [place]. NECK CTA: 1. Normal configuration [...] HEAD NECK W CONTRAST LOCATION: [facility] DATE: 07/12/2024 INDICATION: ams and [...] HEAD NECK W CONTRAST LOCATION: [facility] DATE: 07/12/2024 INDICATION: ams and [...] vascular malformation involving the arteries of the [place]. NECK CTA: 1. Normal configuration of [...] – [place] CT ORDERABLES Final Result * CTA Head [...] vascular malformation involving the arteries of the [place]. NECK CTA: 1. Normal configuration [...] HEAD NECK W CONTRAST LOCATION: [facility] DATE: 07/12/2024 INDICATION: ams and [...] HEAD NECK W CONTRAST LOCATION: [facility] DATE: 07/12/2024 INDICATION: ams and [...] vascular malformation involving the arteries of the [place]. NECK CTA: 1. Normal configuration of [...] vascular malformation involving the arteries of the [place]. NECK CTA: 1. Normal configuration [...] HEAD NECK W CONTRAST LOCATION: [facility] DATE: 07/12/2024 INDICATION: ams and [...] HEAD NECK W CONTRAST LOCATION: [facility] DATE: 07/12/2024 INDICATION: ams and [...] vascular malformation involving the arteries of the [place]. NECK CTA: 1. Normal configuration of [...] am on 07/12/2024. us Avery Fernando MD IM CT ORDERABLES Final Result * Extra Red Top Tube (07/12/2024 1:14 AM CDT) [facility] Hold Specimen [facility] 07/12/2024 2:31 AM CDT LABORATORY Blood BLOOD SPECIMEN / Unknown Venipuncture / Unknown 07/12/2024 1:14 AM CDT 07/12/2024 1:23 AM CDT Avery Fernando MD LAB - BLOOD ORDERABLES Final Res ult LABORATORY [facility] Acute [facility] Lab [address] Lab (1st floor, no room number) [place] [address] * Adult Type and Screen (07/12/2024 1:14 AM CDT) ABO/RH(D) O POS 07/12/2024 1:01 AM CDT RH BLOOD BANK Antibody Screen Negative Negative 07/12/2024 1:01 AM CDT RH BLOOD BANK SPECIMEN EXPIRATION DATE [id number] 07/12/2024 1:01 AM CDT RH BLOOD BANK Blood BLOOD SPECIMEN / Unknown Venipuncture / Unknown 07/12/2024 1:14 AM CDT 07/12/2024 1:23 AM CDT Avery Fernando MD LAB - BLOOD BANK TEST ORDER Summer l Result Performing Organization Address [facility]/ZIP Co de Phone Number BLOOD BANK [address] [place] [address] * Lactic acid whole blood (07/12/2024 1:14 AM CDT) Lactic Acid 0.8 0.7 - 2.0 mmol/L 07/12/2024 1:27 AM CDT [facility] Blood BLOOD SPECIMEN / Unknown Venipuncture / Unknown 07/12/2024 1:14 AM CDT 07/12/2024 1:23 AM CDT Avery Fernando MD LAB - BLOOD ORDERABLES Final Res ult LABORATORY [facility] Acute [facility] Lab [address] Lab (1st floor, no room number) [place] [address] * Hepatic function panel (07/12/2024 [...] BLOOD ORDERABLES Final Res ult [facility] LABORATORY [facility] Lab [address] Lab (1st floor, no room number) [place] [address], [facility] * Blood Culture Peripheral Blood (07/12/2024 1:14 AM CDT) Culture No Growth 07/17/2024 4:46 AM CDT [facility] Blood BLOOD SPECIMEN / Unknown Venipuncture / Unknown 07/12/2024 1:14 AM CDT 07/12/2024 1:23 AM CDT Avery Fernando MD LAB - MICRO GENERAL ORDERABLES F inal Result [facility] Inf. Diseases Diag. Lab [address] [place] [address], [facility] * (ABNORMAL) Glucose by meter (07/12/2024 1:13 AM CDT) GLUCOSE BY METER POCT 133(H) 70 - 99 mg/dL 07/12/2024 1:20 AM CDT [facility] LAB[facility] POC Blood, venous BLOOD SPECIMEN / Unknown 07/12/2024 1:13 AM CDT 07/12/2024 1:20 AM CDT Avery Fernando MD LAB - BEAKER POCT Final Result [facility] LABORATORY POC [facility] Acute Care Lab [address] Lab (1st floor, no room number) [place] [address] * EKG 12-lead, tracing only (07/12/2024 12:24 AM CDT) Systolic Blood Pressure mmHg RADIOLOGY RESULTS Diastolic Blood Pressure mmHg RADIOLOGY RESULTS Ventricular Rate 65 BPM RAD IOLOGY RESULTS Atrial Rate 65 BPM RADIOLOG Y RESULTS MS Interval 234 ms RADIOLOG Y RESULTS QRS Duration 112 ms RADIOLO GY RESULTS QT 430 ms RADIOLOGY RESULTS QTc 447 ms RADIOLOGY RESULTS P [place] 53 degrees RADIOLOGY RESULTS R AXIS 10 degrees RADIOLOGY RESULTS T [place] 51 degrees RADIOLOGY RESULTS Interpretation ECG Sinus rhythm with 1st degree A-V block Otherwise normal ECG When compared with ECG of 23-May-2024 17:08, Criteria for Septal infarct are no longer Present Unconfirmed report - interpretation of this ECG is computer generated - see medical record for final interpretation Confirmed by - EMERGENCY ROOM, PHYSICIAN ([id number]), newspaper editor YISSEL VELASQUEZ ([id number]) on 07/12/2024 6:51:31 AM RADIOLOGY RESULTS 07/12/2024 12:2 4 AM CDT 07/12/2024 6:51 AM CDT Avery Fernando MD ECG ORDERABLES Edited Result [...] LAB - BLOOD ORDERABLES Fin al Result [facility] Acute Care Lab [address] Lab (1st floor, no room number) [place] [address], [facility] * COLONOSCOPY (03/08/2024 1:04 PM CDT) [facility] Patient Name: Herminio Victor Procedure Date: 03/08/2024 [...] continuously. The Olympus Adult Colonoscope, Model # [id number], [id number] # [id number] was introduced through the anus and advanced [...] LAB - STOOLS ORDERABLES Final Re sult Performing Organization Address City/[facility]/ZIP Co de Phone Number LABORATORY [facility] Acute Care Lab [address] [facility] Lab (1st floor, no room number) [place] [address] * Hepatitis C (HIM External Result) (01/04/2022 12:00 PM CDT) Hep C HIM See Scanned Document EXTERNAL LAB Comment:Nonreactive 01/04/2022 12:0 0 PM CDT Narrative EXTERNAL LAB - 01/04/2022 12:00 PM CDT LAB RESULT [facility] [address] [place] [address] us Provider Outside LAB - HIM EXTERNAL RESULT Final Result EXTERNAL LAB External Lab * (ABNORMAL) Lipid panel (12/07/2017 12:34 PM ORTHOPEDIC TECHNICIAN) Pathologist [facility] Cholesterol 115 <200 mg/dL 12/07/2017 1:27 PM [facility] Triglycerides 84 <150 mg/dL 12/07/2017 1:27 PM ORTHOPEDIC TECHNICIAN [facility] HDL Cholesterol 37(L) >39 mg/dL 8 1:27 PM [facility] LDL Cholesterol Calculated 61 <100 mg/dL 12/07/2017 1:27 PM ORTHOPEDIC TECHNICIAN [facility] Comment:Desirable: <100 mg/d l Non HDL Cholesterol 78 <130 mg/dL 12/07/2017 1:27 PM ORTHOPEDIC TECHNICIAN [facility] Blood specimen (specimen) 12/07/2017 12:34 PM ORTHOPEDIC TECHNICIAN 12/07/2017 12:58 PM ORTHOPEDIC TECHNICIAN Michele Fuentes MD LAB - BLOOD ORDERABLES Final Result [facility] [address] [place] [address], [facility] [phone] from Last 3 Months or Most Recently Relevant to Health Maintenance Insurance [place] Advance Directives For more information, please contact: [phone] * Full Code (Latest Code Status on [...] patie nt/ legal decision maker Care Teams Procedure Tech Relationship Specialty Start Date End Date Preet Huff PCP - General 06/24/11
--- OUTSIDE RECORDS SUMMARY | 2024-08-31 13:04 | XMS_ITS | Encounter Summary ---
Author Organization [place] Address [address] [place] [address] Care Team Providers Care Customs Compliance Specialist Name Role Phone HuffPreet cool Primary Care Provider [phone] Encounter Details Date Type Department Care Team (Latest Contact Info) Description 08/24/2024 Travel Social History Tobacco Use Types Packs/Day [...] in an abandoned building, in an overnight group home, or couch-surfing.) Patient unable to answer 08/24/2024 [...] on file Legal Sex Male 5:12 AM CHARGE MACHINE OPERATOR Gender Identity Male 12/05/2017 10:39 AM CHARGE MACHINE OPERATOR Sexual Orientation Not on file documented as of this encounter Plan of Treatment Upcoming Encounters Date Type Department Care Team (Late st Contact Info) Description 09/27/2024 1:00 PM CHARGE MACHINE OPERATOR Office Visit [facility] [place] [address] [place] [phone] Jaxon Saravia MD [address] [place] [address] documented as of this encounter Visit Diagnoses Not on filedocumented in this encounter Care Teams Customs Compliance Specialist Relationship Specialty Start Date End Date Preet Huff PCP - General 06/24/11 documented as of this encounter
--- OUTSIDE RECORDS SUMMARY | 2024-08-31 13:04 | XMS_ITS | Encounter Summary ---
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) [facility] Observation Dept [address] [place] [address] Phone: tel: Referral ID Status Reason Start Date Expiration Date Visits Re quested Visits Authorized [id number] 1 1 Encounter Details Date Type Department Care Team (Late st Contact Info) Description 08/24/2024 10:01 AM ENDLESS TRACK VEHICLE MECHANIC - 08/25/2024 3:22 PM ENDLESS TRACK VEHICLE MECHANIC Emergency [facility] Observation Dept [address] [place] [address] Mateo Gonzalez MD [facility] [address] [place], [place] [address] Martin Sanchez MD [facility] [address], [place] [id number] Kolby Gandara MD [address] [place] [address] Supratherapeutic INR; 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) Discharge Disposition: Residential Facility Social History Tobacco Use Types Packs/Day Years [...] in an abandoned building, in an overnight detention, or couch-surfing.) Patient unable to answer 08/24/2024 [...] on file Legal Sex Male 5:12 AM ENDLESS TRACK VEHICLE MECHANIC Gender Identity Male 12/05/2017 10:39 AM ENDLESS TRACK VEHICLE MECHANIC Sexual Orientation Not on file documented as of this encounter Last Filed Vital Signs Vital Sign Reading Time Taken Comments Blood Pressure 105/48 08/25/2024 1:00 PM ENDLESS TRACK VEHICLE MECHANIC Pulse 66 08/25/2024 1:00 PM ENDLESS TRACK VEHICLE MECHANIC Temperature 36.5 C (97.7 F) 08/25/2024 1:00 PM ENDLESS TRACK VEHICLE MECHANIC Respiratory Rate 16 08/25/2024 1:00 PM ENDLESS TRACK VEHICLE MECHANIC Oxygen Saturation 100% 08/25/2024 1:00 PM ENDLESS TRACK VEHICLE MECHANIC Inhaled Oxygen Concentration - - Weight 88 kg (194 lb 1.6 oz) 08/25/2024 8:30 AM ENDLESS TRACK VEHICLE MECHANIC Height 162.6 cm (5' 4) 08/24/2024 5:27 PM ENDLESS TRACK VEHICLE MECHANIC Body Mass Index 33.32 08/24/2024 5:27 PM ENDLESS TRACK VEHICLE MECHANIC documented in this encounter Discharge Summaries * Jacob Butler DO - 08/25/2024 3:22 PM CST [facility] Hospitalist Discharge Summary Date of Admission: 08/24/2024 Date of Discharge: 08/25/2024 3:22 PM Discharging Provider: Jacob Butler DO Discharge Service: Hospitalist Service Discharge Diagnoses Bleeding from fistula Supratherapeutic INR Hx remote DVT on coumadin ESRD on HD Hx DMT2, HTN, DLD, CVA, SHIRLEY Follow-ups Needed After Discharge Follow-up Appointments Follow-up and recommended labs and tests Follow up with primary care provider, PREET HUFF, within 7 days for hospital follow- up. No follow up labs or test are needed. Discharge Disposition Discharged to penitentiary Condition at discharge: Stable Hospital Course Herminio Victor is a 59 year old male with cognitive impairment (lives at home, has CHANGE MANAGEMENT FACILITATOR), ESRD on HD (MWF), diabetes (listed but does not appear to actually have diabetes), CVA, legally blind, HLP, SHIRLEY (on CPAP), obesity, HTN, DVT (06/2011) admitted on 08/24/2024 after being set from [facility] due to bleeding from his thigh fistula. Now being admitted due to needing dialysis. Bleeding from fistula Supratherapeutic INR Hx DVT on coumadin - patient had a previous GI bleed and there were discussions about stopping coumadin (March 2024) but coumadin was never stopped - had DVT in Jun 2011 and has been on coumadin ever since w/o recurrent DVT ever noted - no hypercoag work-up. Never saw heme - per chart had a R brachial vein clot likely related to a line -now presents with supratherapeutic INR and bleeding from fistula site during HD - my partner discussed with his aunt and patient and all agreeable to stopping coumadin as more risk than benefit at this time ESRD on HD - patient dialyzes MWF - missed dialysis today due to bleeding -completed HD today History of CVA - I do not know the details of this HTN - not on meds - BPs erratic with HD HLP - can resume statin SHIRLEY - ordered CPAP Consultations This Hospital Stay NEPHROLOGY IP CONSULT CARE MANAGEMENT / SOCIAL WORK IP CONSULT Code Status Full Code Time Spent on this Encounter I, Jacob Butler DO, personally saw the patient today and spent greater than 30 minutes discharging this patient. Jacob Butler DO [facility] OBSERVATION DEPT [address] [facility] [address] Physical Exam Vital Signs: Temp: 97.7 ??F (36.5 ??C) Temp src: Oral BP: 105/48 Pulse: 66 Resp: 16 SpO2: 100 % O2 Device: None (Room air) Weight: 194 lbs 1.6 oz Face to face completed day of discharge Primary Care Physician PREET HUFF Discharge Orders Reason for your hospital stay Admitted for bleeding related to elevated INR, has now been taken off coumadin and will remain off. Follow-up and recommended labs and tests Follow up with primary care provider, PREET HUFF, within 7 days for hospital follow- up. No follow up labs or test are needed. Activity Your activity upon discharge: activity as tolerated Resume Home Care Services Diet Follow this diet upon discharge: Current Diet:Orders Placed This Encounter Renal Diet (dialysis) Significant Results and Procedures Most Recent 3 CBC's: Recent Labs Lab Test 08/25/24 0652 08/24/24 1043 07/12/24 0114 WBC 2.7* 2.9* 3.1* HGB 11.4* 11.6* 9.9* MCV 83 84 91 PLT 112* 127* 133* Most Recent 3 BMP's: Recent Labs Lab Test 08/25/24 0652 08/24/24 1250 07/12/24 0114 NA 128* 130* 133* POTASSIUM 4.3 3.7 3.5 CHLORIDE 88* 90* 93* CO2 26 BUN 57.7* 46.6* 34.9* CR 11.75* 10.62* 7.76* ANIONGAP 17* 16* 14 JON 8.7* 9.0 8.8 GLC 92 105* 134* Most Recent 2 LFT's: Recent Labs Lab Test 07/12/24 0114 05/24/24 0609 AST 37 13 ALT 68 19 ALKPHOS 86 62 BILITOTAL 0.4 0.5 Most Recent 3 INR's: Recent Labs Lab Test 08/25/24 0652 08/24/24 1043 07/12/24 0114 INR 2.01* 5.82* 4.68* Most Recent 3 Hemoglobins: Recent Labs Lab Test 08/25/24 0652 08/24/24 1043 07/12/24 0114 HGB 11.4* 11.6* 9.9* Most Recent 3 Troponin's:No lab results found. Most Recent 3 BNP's:No lab results found. Most Recent D-dimer:No lab results found., Results for orders placed or performed during the hospital encounter of 08/24/24 US Ext Arterial Venous Dialys Acs Graft [...] 2.0 cm. The AV anastomosis is patent. Impression IMPRESSION: 1. Patent arteriovenous fistula. 2. 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 ISIS REINOSO DO Discharge Medications Discharge Medication List as of 08/25/2024 2:03 PM CONTINUE these medications which have NOT CHANGED Details atorvastatin (LIPITOR) 20 MG tablet Take 20 mg by mouth at bedtime., Historical B Sduswuy-E-Dvftm Acid (WESCAPS PO) Take 1 capsule by mouth at bedtime., Historical !! calcium acetate (PHOSLO) 667 MG CAPS capsule Take 1,334 mg by mouth 3 times daily (with meals).,Historical !! calcium acetate (PHOSLO) 667 MG CAPS capsule Take 1,334 mg by mouth Take with snacks or supplements. Take 1 capsule (667 mg) once daily with a snack, Historical pantoprazole (PROTONIX) 40 MG EC tablet Take 40 mg by mouth 2 times daily (before meals)., Historical sennosides (SENOKOT) 8.6 MG tablet Take 2 tablets by mouth 2 times daily., Historical !! - Potential duplicate medications found. Please discuss with provider. STOP taking these medications warfarin ANTICOAGULANT (COUMADIN) 5 MG tablet Comments: Reason for Stopping: Allergies No Known Allergies ESS TRACK VEHICLE MECHANIC documented in this encounter Medications at Time of Discharge atorvastatin (LIPITOR) 20 MG tablet Take 20 mg by mouth at bedtime. B Pflwsgz-M-Rrnww Acid (WESCAPS PO) Take 1 capsule by [...] 2 tablets by mouth 2 times daily. documented as of this encounter Progress Notes * Job Her MD - 08/25/2024 10:36 AM CST Renal Medicine Progress Note Assessment/Plan: 59 y.o man with ESRD, admitted for bleeding from his thigh access # ESRD # Access: Left thigh-aneurysm + thinning of the overlying ksin. # Anemia # HTN # CKD-MBD Plan: # UF ~ 3 liters net as tolerated. Okay to discharge after dialysis if there are no other active issues and his thigh access does not bleed. # Access has aneurysmal change that is larger than previous. There is some thinning of the overlying skin. We do not have vascular surgery here. He can follow-up with vascular surgery outpatient. Interval History: Afebrile. VSS. Patient is sleeping on dialysis comfortable. I did not wake him up. I discussed his HD prescription with our maintenance shop manager (Bella) at the bedside. Ultrasound of the left thigh access: FINDINGS: The arterial inflow is patent with diameters diameter of 5.7 mm. There is aneurysmal dilatation of the mid fistula measuring up to 3 cm, previously 2.0 cm. The AV anastomosis is patent. IMPRESSION: 1. Patent arteriovenous fistula. 2. 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 Medications and Allergies: Current Facility-Administered Medications Medication Dose Route Frequency Provider Last Rate Last Admin atorvastatin (LIPITOR) tablet 20 mg 20 mg Oral At Bedtime Kolby Gandara MD 20 mg at 08/24/24 2136 calcium acetate (PHOSLO) capsule 1,334 mg 1,334 mg Oral TID w/meals Kolby Gandara MD 1,334 mg at 08/25/24 0755 No heparin via hemodialysis machine Does not apply Once Job Her MD pantoprazole (PROTONIX) EC tablet 40 mg 40 mg Oral BID AC Kolby Gandara MD 40 mg at 08/25/24 0755 sennosides (SENOKOT) tablet 2 tablet 2 tablet Oral BID Kobly Gandara MD 2 tablet at 08/25/24 0755 sodium chloride 0.9% BOLUS 200 mL 200 mL Hemodialysis Machine Once Job Her MD sodium chloride 0.9% BOLUS 250 mL 250 mL Intravenous Once in dialysis/CRRT Job Her MD sodium chloride 0.9% BOLUS 500 mL 500 mL Hemodialysis Machine Once Job Her MD WesCaps CAPS Oral At Bedtime Kolby Gandara MD No Known Allergies Physical Exam: Vitals were reviewed , Blood pressure 109/44, pulse 70, temperature 97.3 ??F (36.3 ??C), temperature source Oral, resp. rate 16, height 1.626 m (5' 4), weight 88 kg (194 lb 1.6 oz), SpO2 100%. Wt Readings from Last 3 Encounters: 08/25/24 88 kg (194 lb 1.6 oz) 07/12/24 86.2 kg (190 lb) 05/30/24 93.3 kg (205 lb 9.6 oz) No intake or output data in the 24 hours ending 08/25/24 1036 GENERAL APPEARANCE: pleasant, NAD, alert HEENT: Eyes/ears/nose/neck grossly normal RESP: lungs cta b c good efforts, no crackles, rhonchi or wheezes CV: RRR ABDOMEN: o/s/nt/nd, bs present EXTREMITIES/SKIN: no rashes/lesions on observed skin; no edema Data: CBC RESULTS: Recent Labs Lab 08/25/24 0652 08/24/24 1043 WBC 2.7* 2.9* RBC 4.40 4.53 HGB 11.4* 11.6* HCT 36.5* 37.9* PLT 112* 127* Basic Metabolic Panel: Recent Labs Lab 08/25/24 0652 08/24/24 1250 NA 128* 130* POTASSIUM 4.3 3.7 CHLORIDE 88* 90* CO2 23 24 BUN 57.7* 46.6* CR 11.75* 10.62* GLC 92 105* JON 8.7* 9.0 INR Recent Labs Lab 08/25/24 0652 08/24/24 1043 INR 2.01* 5.82* Attestation: I have reviewed today's relevant vital signs, notes, medications, labs and imaging. Job Her MD [facility] - Nephrology Office phone :[phone] Pager: [phone] ESS TRACK VEHICLE MECHANIC * Bella Bradley RN - 08/25/2024 10:28 AM CST Potassium Date Value Ref Range Status 08/25/2024 4.3 3.4 - 5.3 mmol/L Final 01/24/2018 4.3 3.4 - 5.3 mmol/L Final Hemoglobin Date Value Ref Range Status 08/25/2024 11.4 (L) 13.3 - 17.7 g/dL Final 01/24/2018 8.2 (L) 13.3 - 17.7 g/dL Final Creatinine Date Value Ref Range Status 08/25/2024 11.75 (H) 0.67 - 1.17 mg/dL Final 01/25/2019 9.17 (H) 0.66 - 1.25 mg/dL Final Urea Nitrogen Date Value Ref Range Status 08/25/2024 57.7 (H) 8.0 - 23.0 mg/dL Final 01/24/2018 78 (H) 7 - 30 mg/dL Final Sodium Date Value Ref Range Status 08/25/2024 128 (L) 135 - 145 mmol/L Final 01/24/2018 131 (L) 133 - 144 mmol/L Final INR Date Value Ref Range Status 08/25/2024 2.01 (H) 0.85 - 1.15 Final 03/18/2020 2.97 (H) 0.86 - 1.14 Final DIALYSIS PROCEDURE NOTE Hepatitis status of previous patient on machine log was checked and verified ok to use with this patients hepatitis status. Patient dialyzed for 3.5 hrs. on a K3 bath with a net fluid removal of 2.2L. A BFR of 350 ml/min was obtained via a left thigh AVF using 16 gauge needles. The treatment plan was discussed with Dr. Her during the treatment. Total heparin received during the treatment: 0 units. Needle cannulation sites held x 5 min for venous and 10 minutes for the arterial site. Meds given: none Complications: none Person educated: Patient. Knowledge base Minimal. Barriers to learning: Cognitive impairment. Educated on procedure via oral mode. Patient verbalized understanding. ICEBOAT? Timeout performed pre-treatment I: Patient was identified using 2 identifiers C: Consent Signed Yes E: Equipment preventative maintenance is current and dialysis delivery system OK to use B: Hepatitis B Surface Antigen: Negative; Draw Date: 05/25/2024 Hepatitis B Surface Antibody: Immune; Draw Date: 05/25/2024 O: Dialysis orders present and complete prior to treatment A: Vascular access verified and assessed prior to treatment T: Treatment was performed at a clinically appropriate time ?: Patient was allowed to ask questions and address concerns prior to treatment See Adult Hemodialysis flowsheet in [facility] for further details and post assessment. Machine water alarm in place and functioning. Transducer pods intact and checked every 15min. Pt assisted with repositioning throughout dialysis treatment. Pt returned via wheelchair. Chlorine/Chloramine water system checked every 4 hours. Outpatient Dialysis at [facility] Post treatment report given to Jenny Bocanegra RN regarding 2.2L of fluid removed, last BP 105/48. Please remove patient dressing on AVF and AVG needle sites 24 hours after dialysis. If leaking occurs please apply a Band-Aid. Gavin Bradley RN ESS TRACK VEHICLE MECHANIC * Tabby Franklin RN - 08/25/2024 4:17 AM CST PRIMARY DIAGNOSIS: ESRD OUTPATIENT/OBSERVATION GOALS TO BE MET BEFORE DISCHARGE: ADLs back to baseline: No Activity and level of assistance: Ax1 gb walker Pain status: Pain free. Return to near baseline physical activity: No Math Professor Nurse Safe discharge environment identified: Yes Barriers to discharge: Yes Entered by: Tabby Franklin RN 08/25/2024 4:17 AM Please review provider order for any additional goals. Nurse to notify provider when observation goals have been met and patient is ready for discharge. ESS TRACK VEHICLE MECHANIC * Tabby Franklin RN - 08/25/2024 12:53 AM CST PRIMARY DIAGNOSIS: ESRD OUTPATIENT/OBSERVATION GOALS TO BE MET BEFORE DISCHARGE: ADLs back to baseline: No Activity and level of assistance: Ax1 gb walker Pain status: Pain free. Return to near baseline physical activity: No Math Professor Nurse Safe discharge environment identified: Yes Barriers to discharge: Yes Entered by: Tabby Franklin RN 08/25/2024 12:54 AM Please review provider order for any additional goals. Nurse to notify provider when observation goals have been met and patient is ready for discharge. ESS TRACK VEHICLE MECHANIC * Graham Enciso RT - 08/24/2024 10:12 PM CST A CPAP of 8 @ 21% was applied to the pt via the mask for NOC use. The skin in contact with the maskand straps looks good and intact. Pt is tolerating it well. RT will continue to monitor and assess the pt's respiratory status and needs. RT/RN huddle to discuss contraindications prior to placement? N Graham Enciso, RT on 08/24/2024 at 10:13 PM ESS TRACK VEHICLE MECHANIC documented in this encounter H&P Notes * Kolby Gandara MD - 08/24/2024 3:41 PM CST [facility] History and Physical - Hospitalist Service Date of Admission: 08/24/2024 Assessment & Plan Herminio Victor is a 59 year old male with cognitive impairment (lives at home, has CHANGE MANAGEMENT FACILITATOR), ESRD on HD (MWF), diabetes (listed but does not appear to actually have diabetes), CVA, legally blind, HLP, SHIRLEY (on CPAP), obesity, HTN, DVT (06/2011) admitted on 08/24/2024 after being set from [facility] due to bleeding from his thigh fistula. Now being admitted due to needing dialysis. Bleeding from fistula Anticoagulated with elevated INR - stopped by the time the patient reached the ED - no longer bleeding - supratherapeutic INR - stopping coumadin (see below) ESRD on HD - patient dialyzes MWF - missed dialysis today due to bleeding - admit for HD tomorrow per Dr. Her - formal Nephrology consult placed for HD History of DVT on coumadin - patient had a previous GI bleed and there were discussions about stopping coumadin (March 2024) - coumadin was never stopped - reviewed chart: had DVT in Jun 2011 and has been on coumadin ever since - no recurrent DVT ever noted - no hypercoag work-up - never saw heme - patient cannot tell me details of his DVT and neither can his Aunt (contact) - per chart had a R brachial vein clot likely related to a line - STOP coumadin: I discussed this with his aunt and told the patient - should be placed on DVT prophylaxis once INR below therapeutic range and for future hospitalizations DM - listed in PMH, but has never had an elevated HbA1c - patient is not diabetic History of CVA - I do not know the details of this HTN - not on meds - BPs erratic in the ED - monitor HLP - hold statin while admitted to Obs SHIRLEY - ordered CPAP Legally blind Full code: reviewed paperwork from [facility] where his code status is listed Called his aunt and updated her Observation Goals: -diagnostic tests and consults completed and resulted, -vital signs normal or atpatient baseline, Nurse to notify provider when observation goals have been met and patient is ready for discharge. Diet: Renal Diet (dialysis) DVT Prophylaxis: INR is currently elevated Valadez Catheter: Not present Lines: None Cardiac Monitoring: None Code Status: Full Code Clinically Significant Risk Factors Present on Admission # Hyponatremia: Lowest Na = 130 mmol/L in last 2 days, will monitor as appropriate # Hypochloremia: Lowest Cl = 90 mmol/L in last 2 days, will monitor as appropriate # Drug Induced Coagulation Defect: home medication list includes an anticoagulant medication # Thrombocytopenia: Lowest platelets = 127 in last 2 days, will monitor for bleeding Disposition Plan Medically Ready for Discharge: Anticipated Tomorrow Kolby Gandara MD Hospitalist Service [facility] Securely message with [employer] (more info) Text page via [employer] Paging/Directory Chief Complaint Bleeding from fistula History is obtained from the patient History of Present Illness Herminio Victor is a 59 year old male with cognitive impairment (lives at home, has CHANGE MANAGEMENT FACILITATOR), ESRD on HD (MWF), diabetes (listed but does not appear to actually have diabetes), CVA, legally blind, HLP, SHIRLEY (on CPAP), obesity, HTN, DVT (06/2011) admitted on 08/24/2024 after being set from [facility] due to bleeding from his thigh fistula. Now being admitted due to needing dialysis. Patient is unable to give a detailed history. He can answer yes or no questions. He denies any chest pain or shortness of breath. No abdominal pain. No nausea, vomiting, diarrhea. No cough runny noseor sore throat. No fevers or chills. He does not make urine. No new complaints. He was sent from his [facility] dialysis center today because he was bleeding from his thigh fistula. By the time he came to the emergency room the bleeding had stopped. There are photos in his chart. Heis on Coumadin and his INR is elevated. Past Medical History Past Medical History: Diagnosis [...] Last Dose Informant Patient Reported? Taking? B Hvhmzpk-J-Psxjo Acid (WESCAPS PO) 08/23/2024 Yes Yes Sig: Take 1 capsule by mouth at bedtime. atorvastatin (LIPITOR) 20 MG tablet 08/23/2024 Bedtime Yes Yes Sig: Take 20 mg by mouth at bedtime. calcium acetate (PHOSLO) 667 MG CAPS capsule 08/24/2024 Morning Yes Yes Sig: Take 1,334 mg by mouth 3 times daily (with meals). calcium acetate (PHOSLO) 667 MG CAPS capsule Yes Yes Sig: Take 1,334 mg by mouth Take with snacks or supplements. Take 1 capsule (667 mg) once daily with a snack pantoprazole (PROTONIX) 40 MG EC tablet 08/24/2024 Morning Yes Yes Sig: Take 40 mg by mouth 2 times daily (before meals). sennosides (SENOKOT) 8.6 MG tablet 08/23/2024 Bedtime Yes Yes Sig: Take 2 tablets by mouth 2 times daily. warfarin ANTICOAGULANT (COUMADIN) 5 MG tablet 08/23/2024 Evening Yes No Sig: Take 1 tablet (5 mg) by mouth Tuesday through Tuesday, no dose on Sat and SunTake 1 tablet (5 mg) by mouth Tuesday through Tuesday, no dose on Sat and Sun Facility-Administered Medications: None Review of Systems The 10 point Review of Systems is negative other than noted in the HPI or here. Social History I have reviewed this patient's social history and updated it with pertinent information if needed. Social History Tobacco Use Smoking status: Never Smokeless tobacco: Never Substance Use Topics Alcohol use: No Drug use: No Family History Unable to obtain due to: patient not able to tell me Allergies No Known Allergies Physical Exam Vital Signs: Temp: 98 ??F (36.7 ??C) Temp src: Oral BP: (!) 175/85 Pulse: 79 Resp: 16 SpO2: 94 % [id number]: None (Room air) Weight: 0 lbs 0 oz Constitutional: awake, alert, cooperative, no apparent distress, and appears stated age Eyes: Lids and lashes normal, pupils equal, round and reactive to light, extra ocular muscles intact, sclera clear, conjunctiva normal ENT: Normocephalic, without obvious abnormality, atraumatic, sinuses nontender on palpation, external ears without lesions, oral pharynx with moist mucous membranes, tonsils without erythema or exudates, gums normal and good dentition. Respiratory: crackle in bases Cardiovascular: Normal apical impulse, regular rate and rhythm, normal S1 and S2, no S3 or S4, and no murmur noted GI: No scars, normal bowel sounds, soft, non-distended, non-tender, no masses palpated, no hepatosplenomegally Skin: no rash Fistula assessed. No current bleeding Medical Decision Making 60 MINUTES SPENT BY ME on the date of service doing chart review, history, exam, documentation & further activities per the note. Data I have personally reviewed the following data over the past 24 hrs: 2.9 (L) \ 11.6 (L) / 127 (L) 130 (L) 90 (L) 46.6 (H) / 105 (H) 3.7 24 10.62 (H) \ INR: 5.82 (HH) PTT: N/A D-dimer: N/A Fibrinogen: N/A Imaging results reviewed over the past 24 hrs: Recent Results (from the past 24 hours) US Ext Arterial Venous Dialys Acs Graft [...] 2.0 cm. The AV anastomosis is patent. Impression IMPRESSION: 1. Patent arteriovenous fistula. 2. 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 ESS TRACK VEHICLE MECHANIC documented in this encounter Consult Notes * Barbara Kirkpatrick S, DIRECTOR STRATEGIC ACCOUNT MANAGEMENT - 08/25/2024 1:55 PM CSTAssociated Order(s): CARE MANAGEMENT / SOCIAL WORK IP CONSULT Care Management Initial Consult General Information Assessment completed with: Parents, Mother, Arianna Type of CM/SW Visit: Initial Assessment Primary Care Provider verified and updated as needed: Yes Readmission within the last 30 days: no previous admission in last 30 days Reason for Consult: discharge planning Advance Care Planning: Advance Care Planning Reviewed: no concerns identified Communication Assessment Patient's communication style: spoken language (Micronesian or Bilingual) Hearing Difficulty or Deaf: no Wear Glasses or Blind: yes Cognitive Cognitive/Neuro/Behavioral: unchanged from my previous assessment Level of Consciousness: alert Arousal Level: opens eyes spontaneously Orientation: oriented x 4 Mood/Behavior: calm, cooperative, hypoactive (quiet, withdrawn) Speech: clear (slow to answer questions) Living Environment: People in home: parent(s) Arianna Goodman Current living Arrangements: house Able to return to prior arrangements: yes Family/Social Support: Care provided by: homecare agency, parent(s) Provides care for: no one, unable/limited ability to care for self Marital Status: Single Support system: Parent(s) Description of Support System: Supportive, Involved Support Assessment: Adequate family and caregiver support Current Resources: Patient receiving home care services: Yes Skilled Home Care Services: Occupational Therapy, Physical Therapy, Home Health Aid Community Resources: County Worker, CHANGE MANAGEMENT FACILITATOR, Transportation Services, OP Dialysis ([employer]) Equipment currently used at home: walker, standard, other (see comments) Supplies currently used at home: Diabetic Supplies, Other Financial Concerns: none Referral to Financial Worker: No Does the patient's insurance plan have a 3 day qualifying hospital stay waiver? No Lifestyle & Psychosocial Needs: Social Drivers of Health Food Insecurity: Unknown (08/24/2024) Food Insecurity Within the past 12 months, did you worry that your food would run out before you got money to buy more?: Patient unable to answer Within the past 12 months, did the food you bought just not last and you didn???t have money to getmore?: Patient unable to answer Depression: Not at risk (05/22/2020) Received from [email or web address] PHQ-2 PHQ-2 Score: 0 Housing Stability: Unknown (08/24/2024) Housing Stability Do you have housing? : Patient unable to answer Are you worried about losing your housing?: Patient unable to answer Tobacco Use: Medium Risk (06/07/2024) Received from [facility] Includes [facility] Patient History Smoking Tobacco Use: Never Smokeless Tobacco Use: Never Passive Exposure: Yes Financial Resource Strain: Unknown (08/24/2024) Financial Resource Strain Within the past 12 months, have you or your family members you live with been unable to get utilities (heat, electricity) when it was really needed?: Patient unable to answer Alcohol Use: Not on file Transportation Needs: Unknown (08/24/2024) Transportation Needs Within the past 12 months, has lack of transportation kept you from medical appointments, getting your medicines, non-medical meetings or appointments, work, or from getting things that you need?: Patient unable to answer Physical Activity: Not on file Interpersonal Safety: Not on file Stress: Not on file Social Connections: Socially Integrated (03/20/2024) Received from [facility] Count Includes [facility] Social Connections Do you often feel lonely or isolated from those around you?: 0 Health Literacy: Not on file Functional Status: Prior to admission patient needed assistance: Dependent ADLs:: Bathing, Dressing, Grooming, Transfers, Ambulation-walker Dependent IADLs:: Cleaning, Cooking, Laundry, Shopping, Meal Preparation, Medication Management, Money Management, Transportation Assesssment of Functional Status: At functional baseline Mental Health Status: Mental Health Status: No Current Concerns Chemical Dependency Status: Chemical Dependency Status: No Current Concerns Values/Beliefs: Spiritual, Cultural Beliefs, Latter-Day Practices, Values that affect care: no Values/Beliefs Comment: Yazdanism Discussed ???Partnership in Safe Discharge Planning??? document with patient/family: No Additional Information: Pt was not in his room, so SULY completed initial case management consultation with pt's mother, Arianna. SULY confirmed the information on the face sheet is accurate and up to date (address, contacts, and PCP). Arianna confirmed that pt lives at her home (the address listed in his chart) and receives 8 hours of CHANGE MANAGEMENT FACILITATOR with nurses that come in every 3 months. Arianna stated she is in the process of becoming pt's legal guardian but does not have paperwork to send us because it hasn't officially gone through the court yet. Arianna's sister, pt's aunt, is the POA. Pt's mother, Arianna told SW that he uses [facility] transportation and requested we arrange for them to pick him up if medically ready for discharge today. Next Steps: SW will arrange transportation for discharge and remain available for any other needs that arise before discharge. Care Management Discharge Note Discharge Date: 08/25/2024 Discharge Disposition: Home with help/services Discharge Services: CHANGE MANAGEMENT FACILITATOR Discharge Transportation: agency Private pay costs discussed: transportation costs PAS Confirmation Code: N/A Education Provided on the Discharge Plan: Yes Persons Notified of Discharge Plans: Patient, patient's mother Patient/Family in Agreement with the Plan: Yes Handoff Referral Completed: No, handoff not indicated or clinically appropriate Additional Information: SULY tried arranging transportation through [facility] per his mother, Arianna's request but they are closedon the weekends. SW spoke with Arianna about this and informed her of the cost of a wheelchair ride through [place]. Arianna was agreeable. SW scheduled a ride through [facility] to picking machine operator helper pt this afternoon between 1430 and 1520. [facility] Inpatient Care Coordination [facility] [phone] ESS TRACK VEHICLE MECHANIC * Job Her MD - 08/24/2024 4:42 PM CSTAssociated Order(s): NEPHROLOGY IP CONSULT RENAL CONSULTATION NOTE REFERRING MD: Kolby Gandara MD REASON FOR CONSULTATION: ESRD HPI: 59 y.o gentleman with ESRD, who was sent in from his dialysis unit in [place] due to bleeding from his L thigh access. Per report, patient showed up to dialysis unit with his dialysis bleeding. EMS was able to controlled the bleed en route to the ER. Per dialysis team, they have been concerned about the erosion of his access. It has been difficult for the team to connect him the vascular surgery. IRN is elevated ~ 5.8. Dr. Ramsay reviewed his record. She wonders why he has been on coumadin for this long for DVT? I discussed the case with Dr. Gandara in person. I discussed the case with Dr. Gonzalez over the phone. ROS: A complete review of systems was [...] GRAFT), REMOVAL COMMON FEMORAL VEIN STENT, GRAFT EMBOLECTOMY;Surgeon: Rober Saravia MD; Location: OR C PLACE [...] EXTREMITY;; Surgeon: Rober Saravia MD; Location: OR MEDICATIONS: Current Facility-Administered Medications Medication Dose Route Frequency Provider Last Rate Last Admin atorvastatin (LIPITOR) tablet 20 mg 20 mg Oral At Bedtime Kolby Gandara MD calcium acetate (PHOSLO) capsule 1,334 mg 1,334 mg Oral TID w/meals Kolby Gandara MD pantoprazole (PROTONIX) EC tablet 40 mg 40 mg Oral BID AC Kolby Gandara MD sennosides (SENOKOT) tablet 2 tablet 2 tablet Oral BID Kolby Gandara MD WesCaps CAPS Oral At Bedtime Kolby Gandara MD ALLERGIES: Allergies as of 08/24/2024 (No Known Allergies) FH: Family History Family history unknown: Yes [...] file Other Topics Concern Parent/sibling w/ CABG, [place] or angioplasty before 65F 55M? Not Asked Social History Narrative Not on file Social Drivers of Health Financial Resource Strain: Unknown (05/30/2024) Financial Resource Strain Within the past 12 months, have you or your family members you live with been unable to get utilities (heat, electricity) when it was really needed?: Patient unable to answer Food Insecurity: Unknown (05/30/2024) Food Insecurity Within the past 12 months, did you worry that your food would run out before you got money to buy more?: Patient unable to answer Within the past 12 months, did the food you bought just not last and you didn???t have money to getmore?: Patient unable to answer Transportation Needs: Unknown (05/30/2024) Transportation Needs Within the past 12 months, has lack of transportation kept you from medical appointments, getting your medicines, non-medical meetings or appointments, work, or from getting things that you need?: Patient unable to answer Physical Activity: Not on file Stress: Not on file Social Connections: Socially Integrated (03/20/2024) Received from [employer] [facility] Social Connections Do you often feel lonely or isolated from those around you?: 0 Interpersonal Safety: Not on file Housing Stability: Unknown (05/30/2024) Housing Stability Do you have housing? : Patient unable to answer Are you worried about losing your housing?: Patient unable to answer PHYSICAL EXAM: BP (!) 175/85 (BP Location: Right arm) Pulse 79 Temp 98 ??F (36.7 ??C) (Oral) Resp 16 SpO2 94% GENERAL: pleasant, alert, NAD HEENT: Normocephalic. No gross abnormalities. Pupils equal. MMM. Dentition is ok. CV: RRR, RESP: Clear bilaterally with good efforts GI: Abdomen obese, soft. NT MUSCULOSKELETAL: extremities no edema. L thigh access + aneurysm and thinking of the overlying skin. SKIN: no suspicious lesions or rashes, dry to touch NEURO: awake, alert and conversing normall PSYCH: mood good, affect appropriate LYMPH: No palpable ant/post cervical LABS: CBC RESULTS: Recent Labs Lab 08/24/24 1043 WBC 2.9* RBC 4.53 HGB 11.6* HCT 37.9* PLT 127* BMP RESULTS: Recent Labs Lab 08/24/24 1250 NA 130* POTASSIUM 3.7 CHLORIDE 90* CO2 24 BUN 46.6* CR 10.62* GLC 105* JON 9.0 INR Recent Labs Lab 08/24/24 1043 INR 5.82* DIAGNOSTICS: Reviewed A/P: 59 y.o man with ESRD, admitted for bleeding from his thigh access # ESRD # Access: Left thigh-aneurysm + thinning of the overlying ksin. # Anemia # HTN # CKD-MBD Plan: # Ultrasound of his access # HD tomorrow Job Her MD [facility] - Nephrology Office Pager: [phone] ESS TRACK VEHICLE MECHANIC documented in this encounter ED Notes * Raquel Engle RN - 08/24/2024 2:10 PM CST Bed: ED23 Expected date: Expected time: Means of arrival: Comments: ED37 ESS TRACK VEHICLE MECHANIC * Eugenia Mackay RN - 08/24/2024 1:48 PM CST [facility] ED Nurse Handoff Report ED Chief complaint: Vascular Access Problem . ED Diagnosis: Final diagnoses: Supratherapeutic INR 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) Allergies: Allergies Allergen Reactions Dihydroxyaluminum Aminoacetate Nausea GI bleeding Aspirin GI Disturbance and Rash PN: LW Reaction: unknown Code Status: Full Code Activity level - Baseline/Home: in bed. Activity Level - Current: in bed. Lift room needed: No. Bariatric: No Commodity Management Specialist Needed: No Isolation: No. Infection: Not Applicable. Respiratory status: Room air Vital Signs (within 30 minutes): Vitals: 08/24/24 1123 08/24/24 1202 08/24/24 1227 08/24/24 1242 BP: 106/65 (!) 149/53 137/68 (!) 132/118 Pulse: 67 Resp: Temp: TempSrc: SpO2: Cardiac Rhythm: , Pain level: Patient confused: Cognitive Deficite . Patient Falls Risk: nonskid shoes/slippers when out of bed. Elimination Status: Has voided Patient Report - Initial Complaint: Bleeding at fistula. Focused Assessment: Herminio Victor is a 59 year old male with multiple chronic medical conditions, on dialysis via femoral dialysis catheter, presents after he was bringing down his bottoms and it rubbed over the dialysis catheter and there was some bleeding. EMS applied a bandage and the bleeding was controlled. Patient does not feel lightheaded or weak. Patient has no acute medical concerns. No pain. Denies bleeding from anywhere else. Denies head strike. Patient is supposed to get dialysis today. Patient is on warfarin. Abnormal Results: Labs Ordered and Resulted from Time of ED Arrival to Time of ED Departure INR - Abnormal Result Value INR 5.82 (*) CBC WITH PLATELETS AND DIFFERENTIAL - Abnormal WBC Count 2.9 (*) RBC Count 4.53 Hemoglobin 11.6 (*) Hematocrit 37.9 (*) MCV 84 MCH 25.6 (*) MCHC 30.6 (*) RDW 19.0 (*) Platelet Count 127 (*) % Neutrophils 55 % Lymphocytes 25 % Monocytes 16 % Eosinophils 3 % Basophils 0 % Immature Granulocytes 1 NRBCs per 100 WBC 0 Absolute Neutrophils 1.6 Absolute Lymphocytes 0.7 (*) Absolute Monocytes 0.5 Absolute Eosinophils 0.1 Absolute Basophils 0.0 Absolute Immature Granulocytes 0.0 Absolute NRBCs 0.0 BASIC METABOLIC PANEL - Abnormal Sodium 130 (*) Potassium 3.7 Chloride 90 (*) Carbon Dioxide (CO2) 24 Anion Gap 16 (*) Urea Nitrogen 46.6 (*) Creatinine 10.62 (*) GFR Estimate 5 (*) Calcium 9.0 Glucose 105 (*) US Lower Extremity Venous Duplex Left (Results Pending) Treatments provided: Labs, scans, meds Family Comments: Parents aware OBS brochure/video discussed/provided to patient: Yes ED Medications: Medications phytonadione (MEPHYTON/VITAMIN K) 1 MG/ML oral solution 5 mg (5 mg Oral $Given 08/24/24 1231) Drips infusing: No For the majority of the shift this patient was Green. Interventions performed were N/A. Sepsis treatment initiated: No Cares/treatment/interventions/medications to be completed following ED care: N/A ED Nurse Name: Eugenia Mackay RN 1:48 PM ESS TRACK VEHICLE MECHANIC * Mateo Gonzalez MD - 08/24/2024 11:15 AM CST Images from the original note were not included. Emergency Department Note History of Present Illness Chief Complaint Vascular Access Problem HPI Herminio Victor is a 59 year old male with multiple chronic medical conditions, on dialysis viafemoral dialysis catheter, presents after he was bringing down his bottoms and it rubbed over the dialysis catheter and there was some bleeding. EMS applied a bandage and the bleeding was controlled.Patient does not feel lightheaded or weak. Patient has no acute medical concerns. No pain. Denies bleeding from anywhere else. Denies head strike. Patient is supposed to get dialysis today. Patient is on warfarin. Independent Historian EMS states that patient had a similar episode a month ago. Discussed with nurse Aviles from her his dialysis facility and she is concerned that he has been bleeding very easily from this dialysis catheter site and she spoke with his nephrology team and they have been monitoring it. 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 Past Medical History Medical History and Problem List Past Medical History: Diagnosis Date A-V fistula (H) left forearm Anemia Anemia Blind Chronic in-center hemodialysis status (H) Cognitive deficits Diabetes mellitus (H) DVT (deep venous thrombosis) (H) ESRD (end stage renal disease) (H) dialysis [facility] History of staph septicemia 12/20/2015 Hyperkalemia Hyperlipemia Hyperlipidaemia Hypertension Hypertension Kidney disease Kidney disease Orthostasis Retinopathy Sleep apnea CPAP Syncope Medications B Lnjhjjc-Y-Pazjy Acid (WESCAPS PO) calcium acetate (PHOSLO) 667 [...] EXTREMITY;; Surgeon: Rober Saravia MD; Location: OR Physical Exam Patient Vitals for the past 24 hrs: BP Temp Temp src Pulse Resp SpO2 08/24/24 1242 (!) 132/118 -- -- -- -- -- 08/24/24 1227 137/68 -- -- -- -- -- 08/24/24 1202 (!) 149/53 -- -- 67 -- -- 08/24/24 1123 106/65 -- -- -- -- -- 08/24/24 1104 133/55 -- -- -- -- -- 08/24/24 1034 (!) 141/68 -- -- -- -- 100 % 08/24/24 1019 (!) 123/101 -- -- 65 -- 100 % 08/24/24 1012 127/62 -- -- -- -- 100 % 08/24/24 1008 -- 98.1 ??F (36.7 ??C) Oral -- 18 -- Physical Exam GENERAL: Patient resting comfortably. HEAD: Atraumatic. NECK: No rigidity CV: RRR, no murmurs, rubs or gallops PULM: CTAB with good aeration; no retractions, rales, rhonchi, or wheezing ABD: Soft, nontender, nondistended, no guarding DERM: See left thigh vascular access site pictured below. Palpable thrill. No active bleeding. Minimal dried blood on gauze. No crepitus. EXTREMITY: Moving all extremities without difficulty. No calf tenderness or peripheral edema VASCULAR: Symmetric pulses bilaterally Neuro: Cranial nerves 2 through 12 notable for slight left facial droop just baseline per patient. Alert and oriented to person, date of , location. Does not know date. Strength 5 out of 5 bilateral upper and lower extremities. Normal finger-nose and [id number]. Diagnostics Lab Results Labs Ordered and Resulted from Time of ED Arrival to Time of ED Departure INR - Abnormal Result Value INR 5.82 (*) CBC WITH PLATELETS AND DIFFERENTIAL - Abnormal WBC Count 2.9 (*) RBC Count 4.53 Hemoglobin 11.6 (*) Hematocrit 37.9 (*) MCV 84 MCH 25.6 (*) MCHC 30.6 (*) RDW 19.0 (*) Platelet Count 127 (*) % Neutrophils 55 % Lymphocytes 25 % Monocytes 16 % Eosinophils 3 % Basophils 0 % Immature Granulocytes 1 NRBCs per 100 WBC 0 Absolute Neutrophils 1.6 Absolute Lymphocytes 0.7 (*) Absolute Monocytes 0.5 Absolute Eosinophils 0.1 Absolute Basophils 0.0 Absolute Immature Granulocytes 0.0 Absolute NRBCs 0.0 BASIC METABOLIC PANEL - Abnormal Sodium 130 (*) Potassium 3.7 Chloride 90 (*) Carbon Dioxide (CO2) 24 Anion Gap 16 (*) Urea Nitrogen 46.6 (*) Creatinine 10.62 (*) GFR Estimate 5 (*) Calcium 9.0 Glucose 105 (*) Imaging US Lower Extremity Venous Duplex Left (Results Pending) ED Course Medications Administered Medications phytonadione (MEPHYTON/VITAMIN K) 1 MG/ML oral solution 5 mg (5 mg Oral $Given 08/24/24 1231) Procedures Procedures Discussion of Management Discussed with Dr. Garay - nephrology. ED Course Additional Documentation None Medical Decision Making / Diagnosis [facility] Diagnoses: None MIPS None MDM Herminio Victor is a 59 year old male Patient presented after bleeding fistula. Thankfully, prior to arrival, bleeding was controlled with pressure and gauze. I reassessed multiple times and it is hemostatic. He is supratherapeutic in his INR. Discussed with pharmacy and also reference up-to-date. Given patient 5 mg p.o. vitamin K and recommended holding warfarin through Tuesday. His hemoglobin is improved from prior. Baseline pancytopenia. Do not see bleeding from elsewhere and he reports no trauma. Patient has no other concerns. I discussed with the nephrology nurse at the facility and there is concerned that he is easily bleeding from this vascular access site. I discussed with nephrology Dr. Garay who recommended ultrasound of the vascular access site and admissionwith plan for dialysis tomorrow nephrology will evaluate his vascular access site. Discussed with hospitalist and patient to be admitted. Thankfully, patient's potassium is reassuring and he does notrequire any other acute medications. Disposition The patient was admitted to the hospital. Diagnosis ICD-10-CM 1. Supratherapeutic INR R79.1 2. 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) T82.838A Discharge Medications New Prescriptions No medications on file MD Carlos Gordon Kevin, MD 08/24/24 1349 ESS TRACK VEHICLE MECHANIC * Lisa Gill RN - 08/24/2024 10:07 AM CST Images from the original note were not included. Patient arrives via EMS from [facility] where patient was scheduled for dialysis this morning. Staff went to access his fistula (which is in his left thigh) and the fistula was bleeding. Staff controlled the bleeding and put on a dressing. POA was contacted prior to transport. Patient did not start dialysis treatment today. EMS noted they transported patient for a similar issue about a month ago that occurred at home. Patient is on warfarin for history of stroke. Patient also has cognitive deficits. Triage Assessment (Adult) Row Name 08/24/24 1006 Triage Assessment Airway WDL WDL Respiratory WDL Respiratory WDL WDL Skin Circulation/Temperature WDL Skin Circulation/Temperature WDL WDL Cardiac WDL Cardiac WDL WDL Peripheral/Neurovascular WDL Peripheral Neurovascular WDL WDL Cognitive/Neuro/Behavioral WDL Cognitive/Neuro/Behavioral WDL X mental handicap ESS TRACK VEHICLE MECHANIC * Lesley Avalos RN - 08/24/2024 10:01 AM CST Bed: ED37 Expected date: 08/24/24 Expected time: Means of arrival: Ambulance Comments: [place] [address] ESS TRACK VEHICLE MECHANIC documented in this encounter Miscellaneous Notes * Plan of Care - Barbara Kirkpatrick BSW - 08/25/2024 1:57 PM CST Goal Outcome Evaluation: Plan of Care Reviewed With: parent Overall Patient Progress: improvingOverall Patient Progress: improving Outcome Evaluation: Discharge home to mother's house with CHANGE MANAGEMENT FACILITATOR services. ESS TRACK VEHICLE MECHANIC * Pharmacy-Anticoagulation Service - Zuleyka Hopkins [facility] - 08/25/2024 1:22 PM ENDLESS TRACK VEHICLE MECHANIC Images from the original note were not included. Clinical Pharmacy- Warfarin Discharge Note This patient's warfarin was not continued inpatient and has been discontinued at discharge. Anticoagulation Dose History More data exists Latest Ref Rng & Units 05/27/2024 05/28/2024 05/29/2024 05/30/2024 07/12/2024 08/24/2024 08/25/2024 Recent Dosing and Labs warfarin ANTICOAGULANT (COUMADIN) 2 MG tablet - 2 mg, $Given - - - - - - warfarin ANTICOAGULANT (COUMADIN) 4 MG tablet - - 4 mg, $Given 4 mg, $Given - - - - INR 0.85 - 1.15 1.81 1.87 1.92 2.26 4.68 5.82 2.01 Details Vitamin K doses administered during the last 7 days: 5 mg ESS TRACK VEHICLE MECHANIC * Plan of Care - Isis Bocanegra RN - 08/25/2024 12:11 PM CST PRIMARY DIAGNOSIS: bleeding, high INR OUTPATIENT/OBSERVATION GOALS TO BE MET BEFORE DISCHARGE: ADLs back to baseline: Yes Activity and level of assistance: Up with standby assistance. Pain status: Pain free. Return to near baseline physical activity: Yes Math Professor Nurse Safe discharge environment identified: No Barriers to discharge: Yes Entered by: Isis Bocanegra RN 08/25/2024 12:12 PM Please review provider order for any additional goals. Nurse to notify provider when observation goals have been met and patient is ready for discharge.Goal Outcome Evaluation: Plan of Care Reviewed With: patient Overall Patient Progress: no changeOverall Patient Progress: no change Outcome Evaluation: ate good breakfast, to dialysis at 0900, up with 1 assist to scale and to wheelchair, ESS TRACK VEHICLE MECHANIC * Plan of Care - Isis Bocanegra RN - 08/25/2024 7:37 AM CST PRIMARY DIAGNOSIS: INR increased OUTPATIENT/OBSERVATION GOALS TO BE MET BEFORE DISCHARGE: ADLs back to baseline: No Activity and level of assistance: Up with maximum assistance. Consider SW and/or PT evaluation. Pain status: Pain free. Return to near baseline physical activity: No Math Professor Nurse Safe discharge environment identified: No Barriers to discharge: Yes Entered by: Isis Bocanegra RN 08/25/2024 7:37 AM Please review provider order for any additional goals. Nurse to notify provider when observation goals have been met and patient is ready for discharge.Goal Outcome Evaluation: Plan of Care Reviewed With: patient Overall Patient Progress: no changeOverall Patient Progress: no change Outcome Evaluation: Alert and oriented, forgetful, CPAP noc, renal diet, INR 2.01 today and no bleeding ESS TRACK VEHICLE MECHANIC * Plan of Care - Tabby Franklin RN - 08/25/2024 6:17 AM CST Goal Outcome Evaluation: Plan of Care Reviewed With: patient Overall Patient Progress: no changeOverall Patient Progress: no change Outcome Evaluation: Pt alert and orientated. Can be forgetful at times. on RA during day, CPAP at night. denies pain. Not oob this shift. Bladder scanned -5ml in bladder. Renal diet. Mepilex on L thigh is CDI. Plan for possible dialysis today Temp: 98 ??F (36.7 ??C) Temp src: Axillary BP: 136/53 Pulse: 71 Resp: 18 SpO2: 100 % O2 Device: BiPAP/CPAP PRIMARY DIAGNOSIS: ESRD OUTPATIENT/OBSERVATION GOALS TO BE MET BEFORE DISCHARGE: ADLs back to baseline: No Activity and level of assistance: Ax1 gb walker Pain status: Pain free. Return to near baseline physical activity: No Math Professor Nurse Safe discharge environment identified: Yes Barriers to discharge: Yes Entered by: Tabby Franklin RN 08/25/2024 5:51 AM Please review provider order for any additional goals. Nurse to notify provider when observation goals have been met and patient is ready for discharge. Problem: Adult Inpatient Plan of Care Goal: Plan of Care Review Description: The Plan of Care Review/Shift note should be completed every shift. The Outcome Evaluation is a brief statement about your assessment that the patient is improving, declining, or no change. This information will be displayed automatically on your shift note. Outcome: Not Progressing Flowsheets (Taken 08/25/2024 0549) Outcome Evaluation: Pt alert and orientated. Can be forgetful at times. on RA during day, CPAP at night. denies pain. Not oob this shift. Bladder scanned -5ml in bladder. Renal diet. Mepilex on L thigh is CDI. Plan for dialysis today Plan of Care Reviewed With: patient Overall [...] Manage Fall Risk Recent Flowsheet Documentation Taken 08/25/2024 041 by Tabby Franklin RN Safety Promotion/Fall Prevention: safety round/check completed nonskid shoes/slippers when out of bed Taken 08/24/20240 by Tabby Franklin RN Safety Promotion/Fall Prevention: safety round/check completed nonskid shoes/slippers when out of bed Intervention: Prevent Skin Injury Recent Flowsheet Documentation Taken 08/25/2024 041 by Tabby Franklin RN Body Position: position changed independently Taken 08/24/20240 by Tabby Franklin RN Body Position: position changed independently Intervention: Prevent Infection Recent Flowsheet Documentation Taken 08/25/2024 0416 by Tabby Franklin RN Infection Prevention: rest/sleep promoted hand hygiene promoted Taken 08/24/2024 2320 by Tabby Franklin RN Infection Prevention: rest/sleep promoted hand hygiene promoted Goal: Optimal Comfort and Wellbeing Outcome: Not Progressing Goal: Readiness for Transition of Care Outcome: Not Progressing ESS TRACK VEHICLE MECHANIC * Care Plan - Farzad Cortés RN - 08/24/2024 8:00 PM CST PRIMARY DIAGNOSIS:ESRD OUTPATIENT/OBSERVATION GOALS TO BE MET BEFORE DISCHARGE: ADLs back to baseline: No Activity and level of assistance: Ax1 walker GB Pain status: Pain free. 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 Nurse to notify provider when observation goals have been met and patient is ready for discharge. Alert and oriented x4,VSS on RA,denies pain,tolerated renal diet,no iv access,A- V fistula left thigh intact clean and dry, ESS TRACK VEHICLE MECHANIC * Care Plan - Farzad Cortés RN - 08/24/2024 6:00 PM CST ROOM # 222 Living Situation (if not independent, order SW consult):Home with mother Facility name: personal attendant: Mother Activity level at baseline: walker Activity level on admit: Ax1 walker with GB Who will be transporting you at discharge: N/a Patient registered to observation; given Patient Bill of Rights; given the opportunity to ask questions about observation status and their plan of care. Patient has been oriented to the observation room, bathroom and call light is in place. Discussed discharge goals and expectations with patient/family. ESS TRACK VEHICLE MECHANIC * Pharmacy-Admission Medication History - Joshua Wolf, [facility] - 08/24/2024 3:08 PM CST Pharmacist Admission Medication History Admission medication history is complete. The information provided in this note is only as accurateas the sources available at the time of the update. Information Source(s): Family member via phone Changes made to LEVEL VIAL SETTER medication list: Added: atorvastatin Deleted: metoprolol Changed: phoslo, protonix, senokot Allergies reviewed with patient and updates made in EHR: yes Medication History Completed By: Joshua Wolf RPH 08/24/2024 3:08 PM LEVEL VIAL SETTER Med List Medication Sig Last Dose/Taking atorvastatin (LIPITOR) 20 MG tablet Take 20 mg by mouth at bedtime. 08/23/2024 Bedtime B Gcvnxbf-D-Exsjx Acid (WESCAPS PO) Take 1 capsule by mouth at bedtime. 08/23/2024 calcium acetate (PHOSLO) 667 MG CAPS capsule Take 1,334 mg by mouth 3 times daily (with meals). 08/24/2024 Morning calcium acetate (PHOSLO) 667 MG CAPS capsule Take 1,334 mg by mouth Take with snacks or supplements. Take 1 capsule (667 mg) once daily with a snack Taking As Needed pantoprazole (PROTONIX) 40 MG EC tablet Take 40 mg by mouth 2 times daily (before meals). 08/24/2024 Morning sennosides (SENOKOT) 8.6 MG tablet Take 2 tablets by mouth 2 times daily. 08/23/2024 Bedtime warfarin ANTICOAGULANT (COUMADIN) 5 MG tablet Take 1 tablet (5 mg) by mouth Tuesday through Tuesday, no dose on Sat and SunTake 1 tablet (5 mg) by mouth Tuesday through Tuesday, no dose on Sat and Sun 08/23/2024 Evening ESS TRACK VEHICLE MECHANIC documented in this encounter Plan of Treatment Upcoming Encounters Date Type Department Care Team (Late st Contact Info) Description 09/27/2024 1:00 PM ENDLESS TRACK VEHICLE MECHANIC Office Visit [facility] [place] [address] [place] [phone] Rober Saravia MD [address] [place] [id number] Scheduled Orders Name Type Priority Associated Diagnoses Orde r Schedule EKG 12-lead, tracing only EKG Routine Enter condition for order release in comments for 1 Occurrences starting 08/25/2024 documented as of this encounter Procedures Procedure Name Priority Date/Time Associated Diagnosis Comments CBC WITH PLATELETS AND DIFFERENTIAL STAT 08/25/2024 6:52 AM ENDLESS TRACK VEHICLE MECHANIC CBC WITH PLATELETS & DIFFERENTIAL STAT 08/25/2024 6:52 AM ENDLESS TRACK VEHICLE MECHANIC INR Routine 08/25/2024 6:52 AM ENDLESS TRACK VEHICLE MECHANIC BASIC METABOLIC PANEL Routine 08/25/2024 6:52 AM ENDLESS TRACK VEHICLE MECHANIC US EXTREMITY ARTERIAL VENOUS DIALYSIS ACCESS GRAFT STAT 08/24/2024 3:25 PM ENDLESS TRACK VEHICLE MECHANIC BASIC METABOLIC PANEL STAT 08/24/2024 12:50 PM ENDLESS TRACK VEHICLE MECHANIC CBC WITH PLATELETS AND DIFFERENTIAL STAT 08/24/2024 10:43 AM ENDLESS TRACK VEHICLE MECHANIC CBC WITH PLATELETS & DIFFERENTIAL STAT 08/24/2024 10:43 AM ENDLESS TRACK VEHICLE MECHANIC INR STAT 08/24/2024 10:43 AM ENDLESS TRACK VEHICLE MECHANIC documented in this encounter Results * (ABNORMAL) CBC with platelets and differential (08/25/2024 6:52 AM ENDLESS TRACK VEHICLE MECHANIC) WBC Count 2.7(L) 4.0 - 11.0 10e3/uL 08/25/2024 6:58 AM ENDLESS TRACK VEHICLE MECHANIC [facility] RBC Count 4.40 4.40 - 5.90 10e6/uL 08/25/2024 6:58 AM ENDLESS TRACK VEHICLE MECHANIC [facility] Hemoglobin 11.4(L) 13.3 - 17.7 g/dL 08/25/2024 6:58 AM ENDLESS TRACK VEHICLE MECHANIC [facility] Hematocrit 36.5(L) 40.0 - 53.0 % 08/25/2024 6:58 AM ENDLESS TRACK VEHICLE MECHANIC [facility] MCV 83 78 - 100 fL 08/25/2024 6:58 AM ENDLESS TRACK VEHICLE MECHANIC [facility] MCH 25.9(L) 26.5 - 33.0 pg 08/25/2024 6:58 AM ENDLESS TRACK VEHICLE MECHANIC [facility] MCHC 31.2(L) 31.5 - 36.5 g/dL 08/25/2024 6:58 AM ENDLESS TRACK VEHICLE MECHANIC [facility] RDW 18.6(H) 10.0 - 15.0 % 08/25/2024 6:58 AM ENDLESS TRACK VEHICLE MECHANIC [facility] Platelet Count 112(L) 150 - 450 10e3/uL 08/25/2024 6:58 AM ENDLESS TRACK VEHICLE MECHANIC [facility] % Neutrophils 56 % 08/25/2024 6:58 AM ENDLESS TRACK VEHICLE MECHANIC [facility] % Lymphocytes 24 % 08/25/2024 6:58 AM ENDLESS TRACK VEHICLE MECHANIC [facility] % Monocytes 16 % 08/25/2024 6:58 AM ENDLESS TRACK VEHICLE MECHANIC [facility] % Eosinophils 3 % 08/25/2024 6:58 AM ENDLESS TRACK VEHICLE MECHANIC [facility] % Basophils 0 % 08/25/2024 6:58 AM ENDLESS TRACK VEHICLE MECHANIC [facility] % Immature Granulocytes 0 % 08/25/2024 6:58 AM ENDLESS TRACK VEHICLE MECHANIC [facility] NRBCs per 100 WBC 0 <1 /100 024 6:58 AM ENDLESS TRACK VEHICLE MECHANIC [facility] Absolute Neutrophils 1.5(L) 1.6 - 8.3 10e3/uL 08/25/2024 6:58 AM ENDLESS TRACK VEHICLE MECHANIC [facility] Absolute Lymphocytes 0.7(L) 0.8 - 5.3 10e3/uL 08/25/2024 6:58 AM ENDLESS TRACK VEHICLE MECHANIC [facility] Absolute Monocytes 0.4 0.0 - 1.3 10e3/uL 08/25/2024 6:58 AM ENDLESS TRACK VEHICLE MECHANIC [facility] Absolute Eosinophils 0.1 0.0 - 0.7 10e3/uL 08/25/2024 6:58 AM ENDLESS TRACK VEHICLE MECHANIC [facility] Absolute Basophils 0.0 0.0 - 0.2 10e3/uL 08/25/2024 6:58 AM ENDLESS TRACK VEHICLE MECHANIC [facility] Absolute Immature Granulocytes 0.0 <=0.4 10e3/uL 08/25/2024 6:58 AM ENDLESS TRACK VEHICLE MECHANIC [facility] Absolute NRBCs 0.0 10e3/uL 08/25/2024 6:58 AM ENDLESS TRACK VEHICLE MECHANIC [facility] Blood STRUCTURE OF RIGHT HAND / Unknown Venipuncture / Unknown 08/25/2024 6:52 AM ENDLESS TRACK VEHICLE MECHANIC 08/25/2024 6:56 AM ENDLESS TRACK VEHICLE MECHANIC Kolby Gandara MD LAB - BLOOD ORDERABLES Final Result LABORATORY [facility] [address] Lab (1st floor, no room number) [place] [address] * (ABNORMAL) INR (08/25/2024 6:52 AM ENDLESS TRACK VEHICLE MECHANIC) Pathologist [facility] INR 2.01(H) 0.85 - 1.15 08/25/2024 7:07 AM ENDLESS TRACK VEHICLE MECHANIC LABORATORY Blood STRUCTURE OF RIGHT HAND / Unknown Venipuncture / Unknown 08/25/2024 6:52 AM ENDLESS TRACK VEHICLE MECHANIC 08/25/2024 6:56 AM ENDLESS TRACK VEHICLE MECHANIC Kolby Gandara MD LAB - BLOOD ORDERABLES Final Result Performing Organization Address [facility] Co de Phone Number LABORATORY [facility] [address] Lab (1st floor, no room number) [place] [phone] * (ABNORMAL) Basic metabolic panel (08/25/2024 6:52 AM ENDLESS TRACK VEHICLE MECHANIC) Pathologist [facility] Sodium 128(L) 135 - 145 mmol/L 08/25/2024 7:18 AM [facility] Potassium 4.3 3.4 - 5.3 mmol/L 08/25/2024 7:18 AM [facility] Chloride 88(L) 98 - 107 mmol/L 08/25/2024 7:18 AM [facility] Carbon Dioxide (CO2) 23 22 - 29 mmol/L 08/25/2024 7:18 AM [facility] Anion Gap 17(H) 7 - 15 mmol/L 08/25/2024 7:18 AM [facility] Urea Nitrogen 57.7(H) 8.0 - 23.0 mg/dL 08/25/2024 7:18 AM [facility] Creatinine 11.75(H) 0.67 - 1.17 mg/dL 08/25/2024 7:18 AM [facility] GFR Estimate 4(L) >60 mL/min/1. 73m2 08/25/2024 7:18 AM [facility] Comment:eGFR calculated usin 2020 CKD-EPI equation. Calcium 8.7(L) 8.8 - 10.4 mg/dL 08/25/2024 7:18 AM ENDLESS TRACK VEHICLE MECHANIC [facility] Comment:Reference intervals for this test were updated on 04/24/2024 to reflect our healthy population more accurately. There may be differences in the flagging of prior results with similar values performed with this method. Those prior results can be interpreted in the context of the updated reference intervals. Glucose 92 70 - 99 mg/dL 08/25/2024 7:18 AM ENDLESS TRACK VEHICLE MECHANIC [facility] Blood STRUCTURE OF RIGHT HAND / Unknown Venipuncture / Unknown 08/25/2024 6:52 AM ENDLESS TRACK VEHICLE MECHANIC 08/25/2024 6:56 AM ENDLESS TRACK VEHICLE MECHANIC us Kolby Gandara MD LAB - BLOOD ORDERABLES Final Result [facility] [address] Lab (1st floor, no room number) [place] [address] * US Ext Arterial Venous Dialys Acs Graft (08/24/2024 3:25 PM ENDLESS TRACK VEHICLE MECHANIC) Anatomical Region Laterality Modality Vascular, Abdomen/Pelvis Ultraso und Impressions 08/24/2024 4:23 PM ENDLESS TRACK VEHICLE MECHANIC IMPRESSION: 1. Patent arteriovenous fistula. 2. 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 ISIS REINOSO DO Narrative 08/24/2024 4:23 PM ENDLESS TRACK VEHICLE MECHANIC US EXTREMITY ARTERIAL VENOUS DIALYSIS ACCESS GRAFT [...] ISIS REINOSO DO us Mateo Gonzalez MD [facility] ORDERABLES Final Result * (ABNORMAL) Basic metabolic panel (08/24/2024 12:50 PM ENDLESS TRACK VEHICLE MECHANIC) Sodium 130(L) 135 - 145 mmol/L 08/24/2024 1:18 PM ENDLESS TRACK VEHICLE MECHANIC [facility] Potassium 3.7 3.4 - 5.3 mmol/L 08/24/2024 1:18 PM ENDLESS TRACK VEHICLE MECHANIC LABORATORY Chloride 90(L) 98 - 107 mmol/L 08/24/2024 1:18 PM ENDLESS TRACK VEHICLE MECHANIC [facility] Carbon Dioxide (CO2) 24 22 - 29 mmol/L 08/24/2024 1:18 PM ENDLESS TRACK VEHICLE MECHANIC [facility] Anion Gap 16(H) 7 - 15 mmol/L 08/24/2024 1:18 PM ENDLESS TRACK VEHICLE MECHANIC [facility] Urea Nitrogen 46.6(H) 8.0 - 23.0 mg/dL 08/24/2024 1:18 PM ENDLESS TRACK VEHICLE MECHANIC [facility] Creatinine 10.62(H) 0.67 - 1.17 mg/dL 08/24/2024 1:18 PM ENDLESS TRACK VEHICLE MECHANIC [facility] GFR Estimate 5(L) >60 mL/min/1. 73m2 08/24/2024 1:18 PM ENDLESS TRACK VEHICLE MECHANIC [facility] Comment:eGFR calculated us2020 CKD-EPI equation. Calcium 9.0 8.8 - 10.4 mg/dL 08/24/2024 1:18 PM ENDLESS TRACK VEHICLE MECHANIC [facility] Comment:Reference intervals for this test were updated on 04/24/2024 to reflect our healthy population more accurately. There may be differences in the flagging of prior results with similar values performed with this method. Those prior results can be interpreted in the context of the updated reference intervals. Glucose 105(H) 70 - 99 mg/dL 08/24/2024 1:18 PM ENDLESS TRACK VEHICLE MECHANIC [facility] Blood STRUCTURE OF LEFT WRIST REGION / Unknown Venipuncture / Unknown 08/24/2024 12:50 PM ENDLESS TRACK VEHICLE MECHANIC 08/24/2024 12:57 PM ENDLESS TRACK VEHICLE MECHANIC us Mateo Gonzalez MD LAB - BLOOD ORDERABLES Final Res ult RH LABORATORY [facility] [address] Lab (1st floor, no room number) [place] [address] * (ABNORMAL) CBC with platelets and differential (08/24/2024 10:43 AM ENDLESS TRACK VEHICLE MECHANIC) WBC Count 2.9(L) 4.0 - 11.0 10e3/uL 08/24/2024 10:52 AM ENDLESS TRACK VEHICLE MECHANIC [facility] RBC Count 4.53 4.40 - 5.90 10e6/uL 08/24/2024 10:52 AM ENDLESS TRACK VEHICLE MECHANIC [facility] Hemoglobin 11.6(L) 13.3 - 17.7 g/dL 08/24/2024 10:52 AM ENDLESS TRACK VEHICLE MECHANIC [facility] Hematocrit 37.9(L) 40.0 - 53.0 % 08/24/2024 10:52 AM ENDLESS TRACK VEHICLE MECHANIC [facility] MCV 84 78 - 100 fL 08/24/2024 10:52 AM ENDLESS TRACK VEHICLE MECHANIC [facility] MCH 25.6(L) 26.5 - 33.0 pg 08/24/2024 10:52 AM ENDLESS TRACK VEHICLE MECHANIC [facility] MCHC 30.6(L) 31.5 - 36.5 g/dL 08/24/2024 10:52 AM ENDLESS TRACK VEHICLE MECHANIC [facility] RDW 19.0(H) 10.0 - 15.0 % 08/24/2024 10:52 AM ENDLESS TRACK VEHICLE MECHANIC [facility] Platelet Count 127(L) 150 - 450 10e3/uL 08/24/2024 10:52 AM ENDLESS TRACK VEHICLE MECHANIC [facility] % Neutrophils 55 % 08/24/2024 10:52 AM ENDLESS TRACK VEHICLE MECHANIC [facility] % Lymphocytes 25 % 08/24/2024 10:52 AM ENDLESS TRACK VEHICLE MECHANIC [facility] % Monocytes 16 % 08/24/2024 10:52 AM ENDLESS TRACK VEHICLE MECHANIC [facility] % Eosinophils 3 % 08/24/2024 10:52 AM ENDLESS TRACK VEHICLE MECHANIC [facility] % Basophils 0 % 08/24/2024 10:52 AM ENDLESS TRACK VEHICLE MECHANIC [facility] % Immature Granulocytes 1 % 08/24/2024 10:52 AM ENDLESS TRACK VEHICLE MECHANIC [facility] NRBCs per 100 WBC 0 <1 /100 024 10:52 AM ENDLESS TRACK VEHICLE MECHANIC [facility] Absolute Neutrophils 1.6 1.6 - 8.3 10e3/uL 08/24/2024 10:52 AM ENDLESS TRACK VEHICLE MECHANIC [facility] Absolute Lymphocytes 0.7(L) 0.8 - 5.3 10e3/uL 08/24/2024 10:52 AM ENDLESS TRACK VEHICLE MECHANIC [facility] Absolute Monocytes 0.5 0.0 - 1.3 10e3/uL 08/24/2024 10:52 AM ENDLESS TRACK VEHICLE MECHANIC [facility] Absolute Eosinophils 0.1 0.0 - 0.7 10e3/uL 08/24/2024 10:52 AM ENDLESS TRACK VEHICLE MECHANIC [facility] Absolute Basophils 0.0 0.0 - 0.2 10e3/uL 08/24/2024 10:52 AM ENDLESS TRACK VEHICLE MECHANIC [facility] Absolute Immature Granulocytes 0.0 <=0.4 10e3/uL 08/24/2024 10:52 AM ENDLESS TRACK VEHICLE MECHANIC [facility] Absolute NRBCs 0.0 10e3/uL 08/24/2024 10:52 AM ENDLESS TRACK VEHICLE MECHANIC [facility] Blood STRUCTURE OF RIGHT HAND / Unknown Venipuncture / Unknown 08/24/2024 10:43 AM ENDLESS TRACK VEHICLE MECHANIC 08/24/2024 10:49 AM ENDLESS TRACK VEHICLE MECHANIC us Mateo Gonzalez MD LAB - BLOOD ORDERABLES Final Res ult Performing Organization Address City/State/[facility] Co de Phone Number LABORATORY [facility] [address] Lab (1st floor, no room number) [place] [address] * (ABNORMAL) INR (08/24/2024 10:43 AM ENDLESS TRACK VEHICLE MECHANIC) INR 5.82(HH) 0.85 - 1.15 08/24/2024 11:35 AM ENDLESS TRACK VEHICLE MECHANIC [facility] Blood STRUCTURE OF RIGHT HAND / Unknown Venipuncture / Unknown 08/24/2024 10:43 AM ENDLESS TRACK VEHICLE MECHANIC 08/24/2024 10:49 AM ENDLESS TRACK VEHICLE MECHANIC us Mateo Gonzalez MD LAB - BLOOD ORDERABLES Final Res ult [facility] [address] [facility] Lab (1st floor, no room number) [place] [address], [facility] documented in this encounter Visit Diagnoses Diagnosis Supratherapeutic INR Abnormal coagulation profile 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) Supratherapeutic INR Abnormal coagulation profile 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) documented in this encounter Administered Medications Inactive Administered Medications - up to 3 most recent administrations Medication Order MAR Action Action Date Dose Rate Site albumin human 5 % injection 50-250 mL 50-250 mL, Intravenous, EVERY 1 HOUR PRN, other, see administration instructions, Starting on Tue08/25/24 at 0751, FOR Systolic Blood Pressure less than 90 mmHg or for volume replacement DURING DIALYSIS RUN, Dialysis, Reason for Use: Dialysis (hemodialysis and CRRT) prime if hypotension or large extracorporeal circuit atorvastatin (LIPITOR) tablet 20 mg 20 mg, Oral, AT BEDTIME, First dose on Tue08/24/24 at 2200 $Given 08/24/2024 9:36 PM ENDLESS TRACK VEHICLE MECHANIC 20 mg calcium acetate (PHOSLO) capsule 1,334 mg 1,334 mg, Oral, 3 TIMES DAILY WITH MEALS, First dose on Tue08/24/24 at 1800, Best if given with meals. $Given 08/25/2024 1:59 PM ENDLESS TRACK VEHICLE MECHANIC 1,334 mg $Given 08/25/2024 7:55 AM ENDLESS TRACK VEHICLE MECHANIC 1,334 mg $Given 08/24/2024 6:21 PM ENDLESS TRACK VEHICLE MECHANIC 1,334 mg lidocaine 1 % 0.5 mL 0.5 mL, Intradermal, ONCE PRN, WITHIN 24 HOURS For local anesthesia at fistula/graft site, Starting on Tue08/25/24 at 0751, For 1 dose, For local anesthesia at VENOUS fistula/graft site. Give once, if needed, at the dialysis treatment., Dialysis lidocaine 1 % 0.5 mL 0.5 mL, Intradermal, ONCE PRN, For local anesthesia at ARTERIAL fistula/graft site., Starting on Tue08/25/24 at 0751, For 1 dose, Give once, if needed, at the dialysis treatment., Dialysis ondansetron (ZOFRAN ODT) ODT tab 4 mg 4 mg, Oral, EVERY 6 HOURS PRN, nausea/vomiting - 1st line, Starting on Tue08/24/24 at 1527, This is Step 1 of nausea and [...] 4 mg, Intravenous, EVERY 6 HOURS PRN, nausea/vomiting - 1st line, Administer over 2-5 Minutes, Starting on Tue08/24/24 at 1527, Give IF patient unable to tolerate oral medication. This is Step 1 of nausea and vomiting management. If nausea not resolved in 15 minutes, go to Step 2 prochlorperazine (COMPAZINE). pantoprazole (PROTONIX) EC tablet 40 mg 40 mg, Oral, 2 TIMES DAILY BEFORE MEALS, First dose on Tue08/24/24 at 1630, DO NOT CRUSH. $Given 08/25/2024 7:55 AM ENDLESS TRACK VEHICLE MECHANIC 40 mg $Given 08/24/2024 6:21 PM ENDLESS TRACK VEHICLE MECHANIC 40 mg phytonadione (MEPHYTON/VITAMIN K) 1 MG/ML oral solution 5 mg 5 mg, Oral, ONCE, On Tue08/24/24 at 1155, For 1 dose $Given 08/24/2024 12:31 PM ENDLESS TRACK VEHICLE MECHANIC 5 mg prochlorperazine (COMPAZINE) injection 10 mg 10 mg, Intravenous, EVERY 6 HOURS PRN, nausea/vomiting - 2nd line, Administer over 1-2 Minutes, Starting on Tue08/24/24 at 1527, Give IF patient unable to tolerate oral medication. This is Step 2 of nausea and vomiting management. Give if nausea not resolved 15 minutes after giving ondansetron (ZOFRAN). If nausea not resolved in 15-30 minutes, Notify provider. prochlorperazine (COMPAZINE) tablet 10 mg 10 mg, Oral, EVERY 6 HOURS PRN, nausea/vomiting - 2nd line, Starting on Tue08/24/24 at 1527, This is Step 2 of nausea and vomiting management. Give if nausea not resolved 15 minutes after giving ondansetron (ZOFRAN). If nausea not resolved in 15-30 minutes, Notify provider. senna-docusate (SENOKOT-S/PERICOLACE) 8.6-50 MG per tablet 1 tablet 1 tablet, Oral, 2 TIMES DAILY PRN, constipation, Starting on Tue08/24/24 at 1527, If no bowel movement in 24 hours, [...] 2 TIMES DAILY PRN, constipation, Starting on Tue08/24/24 at 1527, IF more than 1 constipation PRN medication is ordered, administer step-jane as indicated, moving to the next step ONLY if prior step ineffective. Step 1: senna-docusate (SENOKOT-S; PERICOLACE) OR bisacodyl (DULCOLAX) EC tablet Step 2: polyethylene glycol (MIRALAX/GLYCOLAX) Step 3: bisacodyl (DULCOLAX) suppository Step 4: enema Hold for loose stools. sennosides (SENOKOT) tablet 2 tablet 2 tablet, Oral, 2 TIMES DAILY, First dose on Tue08/24/24 at 2000, Hold for loose stools. $Given 08/25/2024 7:55 AM ENDLESS TRACK VEHICLE MECHANIC 2 tablets $Given 08/24/2024 6:22 PM ENDLESS TRACK VEHICLE MECHANIC 2 tablets sodium chloride 0.9% BOLUS 100-150 mL Intravenous, 100-150 mL, EVERY 15 MIN PRN, Until hypotensive symptoms resolve, Starting on 08/25/24 at 0751, For 10 doses, Up to 1000 mL maximum total dose. Give if needed to manage Systolic Blood Pressure as indicated in Hemodialysis Single Treatment set up. Notify provider if patient blood pressure is not responsive with the bolus., Dialysis sodium chloride 0.9% BOLUS 200 mL Hemodialysis Machine, 200 mL, ONCE, On 08/25/24 at 0800, For 1 dose, For Dialyzer Prime. (In Dialyzer), Dialysis $New Bag 08/25/2024 10:51 AM ENDLESS TRACK VEHICLE MECHANIC 200 mLs sodium chloride 0.9% BOLUS 250 mL Intravenous, 250 mL, ONCE IN DIALYSIS/CRRT, On 08/25/24 at 0800, For 1 dose, For patient prime during dialysis, Dialysis $New Bag 08/25/2024 10:51 AM ENDLESS TRACK VEHICLE MECHANIC 250 mLs Stop Heparin 60 minutes before end of treatment CONTINUOUS PRN, Starting on 08/25/24 at 0751, Until 08/25/24 at 1722, Stop Heparin 60 minutes before end of treatment, Dialysis documented in this encounter Active and Recently Administered Medications Times are shown in ENDLESS TRACK VEHICLE MECHANIC. Scheduled Medication Order 08/23/2024 08/24/2024 08/25/2024 atorvastatin (LIPITOR) tablet 20 mg 20 mg, Oral, AT BEDTIME, First dose on Tue08/24/24 at 2200 2136 ($Given - Provider: Farzad Cortés RN) calcium acetate (PHOSLO) capsule 1,334 mg 1,334 mg, Oral, 3 TIMES DAILY WITH MEALS, First dose on Tue08/24/24 at 1800, Best if given with meals. 1821 ($Given - Provider: Farzad Cortés RN) 0755 ($Given - Provider: Isis Bocanegra RN)1359 ($Given - Provider: Isis Bocanegra, LINDA) multivitamin RENAL (TRIPHROCAPS) capsule 1 capsule 1 capsule, Oral, AT BEDTIME, First dose on Tue08/24/24 at 2200 2137 (Not Given - Provider: Farzad Cortés RN - Reason: Medication not available) No heparin via hemodialysis machine ONCE, 1 dose, On 08/25/24 at 0800, Normal saline flushes may be used to maintain patency of circuit., Dialysis 0800 (Canceled Entry - Provider: Orders Generic Provider - Comment: Automatically canceled at discontinue of medication order) pantoprazole (PROTONIX) EC tablet 40 mg 40 mg, Oral, 2 TIMES DAILY BEFORE MEALS, First dose on Tue08/24/24 at 1630, DO NOT CRUSH. 1821 ($Given - Provider: Farzad Cortés RN) 0755 ($Given - Provider: Isis Bocanegra, LINDA)1630 (Canceled Entry - Provider: Orders Generic Provider - Comment: Automatically canceled at discontinue of medication order) phytonadione (MEPHYTON/VITAMIN K) 1 MG/ML oral solution 5 mg (COMPLETED) 5 mg, Oral, ONCE, On Tue08/24/24 at 1155, For 1 dose 1231 ($Given - Provider: Lisa Gill, LINDA) sennosides (SENOKOT) tablet 2 tablet 2 tablet, Oral, 2 TIMES DAILY, First dose on Tue08/24/24 at 2000, Hold for loose stools. 1822 ($Given - Provider: Farzad Cortés, LINDA) 0755 ($Given - Provider: Isis Bocanegra, LINDA) sodium chloride 0.9% BOLUS 200 mL (COMPLETED) Hemodialysis Machine, 200 mL, ONCE, On 08/25/24 at 0800, For 1 dose, For Dialyzer Prime. (In Dialyzer), Dialysis 1051 ($New Bag - Pro vider: Bella Bradley RN) sodium chloride 0.9% BOLUS 250 mL (COMPLETED) Intravenous, 250 mL, ONCE IN DIALYSIS/CRRT, On 08/25/24 at 0800, For 1 dose, For patient prime during dialysis, Dialysis 1051 ($New Bag - Pro vider: Bella Bradley RN) sodium chloride 0.9% BOLUS 500 mL Hemodialysis Machine, 500 mL, ONCE, On 08/25/24 at 0800, For 1 dose, RINSE BACK 0.9% Normal Saline to a Max of 500mL. Dialyzer rinse back rate 25% of Blood flow rate (BFR). 0800 (Canceled Entry - Provider: Orders Generic Provider - Comment: Automatically canceled at discontinue of medication order) PRN Medication Order 08/23/2024 08/24/2024 08/25/2024 albumin human 5 % injection 50-250 mL 50-250 mL, Intravenous, EVERY 1 HOUR PRN, other, see administration instructions, Starting on 08/25/24 at 0751, FOR Systolic Blood Pressure less than 90 mmHg or for volume replacement DURING DIALYSIS RUN, Dialysis, Reason for Use: Dialysis (hemodialysis and CRRT) prime if hypotension or large extracorporeal circuit calcium acetate (PHOSLO) capsule 1,334 mg 1,334 mg, Oral, WITH SNACKS OR SUPPLEMENTS, other, home med, Starting on Tue08/24/24 at 1527, Best if given with meals. lidocaine 1 % 0.5 mL 0.5 mL, Intradermal, ONCE PRN, WITHIN 24 HOURS For local anesthesia at fistula/graft site, Starting on 08/25/24 at 0751, For 1 dose, For local anesthesia at VENOUS fistula/graft site. Give once, if needed, at the dialysis treatment., Dialysis lidocaine 1 % 0.5 mL 0.5 mL, Intradermal, ONCE PRN, For local anesthesia at ARTERIAL fistula/graft site., Starting on 08/25/24 at 0751, For 1 dose, Give once, if needed, at the dialysis treatment., Dialysis ondansetron (ZOFRAN ODT) ODT tab 4 mg(Linked Group 1) 4 mg, Oral, EVERY 6 HOURS PRN, nausea/vomiting - 1st line, Starting on Tue08/24/24 at 1527, This is Step 1 of nausea and [...] required. ondansetron (ZOFRAN) injection 4 mg(Linked Group 1) 4 mg, Intravenous, EVERY 6 HOURS PRN, nausea/vomiting - 1st line, Administer over 2-5 Minutes, Starting on Tue08/24/24 at 1527, Give IF patient unable to tolerate oral medication. This is Step 1 of nausea and vomiting management. If nausea not resolved in 15 minutes, go to Step 2 prochlorperazine (COMPAZINE). prochlorperazine (COMPAZINE) injection 10 mg(Linked Group 2) 10 mg, Intravenous, EVERY 6 HOURS PRN, nausea/vomiting - 2nd line, Administer over 1-2 Minutes, Starting on Tue08/24/24 at 1527, Give IF patient unable to tolerate oral medication. This is Step 2 of nausea and vomiting management. Give if nausea not resolved 15 minutes after giving ondansetron (ZOFRAN). If nausea not resolved in 15-30 minutes, Notify provider. prochlorperazine (COMPAZINE) tablet 10 mg(Linked Group 2) 10 mg, Oral, EVERY 6 HOURS PRN, nausea/vomiting - 2nd line, Starting on Tue08/24/24 at 1527, This is Step 2 of nausea and vomiting management. Give if nausea not resolved 15 minutes after giving ondansetron (ZOFRAN). If nausea not resolved in 15-30 minutes, Notify provider. senna-docusate (SENOKOT-S/PERICOLACE) 8.6-50 MG per tablet 1 tablet(Linked Group 3) 1 tablet, Oral, 2 TIMES DAILY PRN, constipation, Starting on Tue08/24/24 at 1527, If no bowel movement in 24 hours, [...] 2 TIMES DAILY PRN, constipation, Starting on Tue08/24/24 at 1527, IF more than 1 constipation PRN medication is ordered, administer step-jane as indicated, moving to the next step ONLY if prior step ineffective. Step 1: senna-docusate (SENOKOT-S; PERICOLACE) OR bisacodyl (DULCOLAX) EC tablet Step 2: polyethylene glycol (MIRALAX/GLYCOLAX) Step 3: bisacodyl (DULCOLAX) suppository Step 4: enema Hold for loose stools. sodium chloride 0.9% BOLUS 100-150 mL Intravenous, 100-150 mL, EVERY 15 MIN PRN, Until hypotensive symptoms resolve, Starting on Tue08/25/24 at 0751, For 10 doses, Up to 1000 mL maximum total dose. Give if needed to manage Systolic Blood Pressure as indicated in Hemodialysis Single Treatment set up. Notify provider if patient blood pressure is not responsive with the bolus., Dialysis Stop Heparin 60 minutes before end of treatment CONTINUOUS PRN, Starting on 08/25/24 at 0751, Until 08/25/24 at 1722, Stop Heparin 60 minutes before end of treatment, Dialysis Linked Groups Order Group 1: ondansetron (ZOFRAN ODT) ODT tab 4 mgJump to med 4 mg, Oral, EVERY 6 HOURS PRN, nausea/vomiting - 1st line, Starting on Tue08/24/24 at 1527, This is Step 1 of nausea and [...] 4 mg, Intravenous, EVERY 6 HOURS PRN, nausea/vomiting - 1st line, Administer over 2-5 Minutes, Starting on Tue08/24/24 at 1527, Give IF patient unable to tolerate oral medication. This is Step 1 of nausea and vomiting management. If nausea not resolved in 15 minutes, go to Step 2 prochlorperazine (COMPAZINE). Group 2: prochlorperazine (COMPAZINE) injection 10 mgJump to med 10 mg, Intravenous, EVERY 6 HOURS PRN, nausea/vomiting - 2nd line, Administer over 1-2 Minutes, Starting on Tue08/24/24 at 1527, Give IF patient unable to tolerate oral medication. This is Step 2 of nausea and vomiting management. Give if nausea not resolved 15 minutes after giving ondansetron (ZOFRAN). If nausea not resolved in 15-30 minutes, Notify provider. Or prochlorperazine (COMPAZINE) tablet 10 mgJump to med 10 mg, Oral, EVERY 6 HOURS PRN, nausea/vomiting - 2nd line, Starting on Tue08/24/24 at 1527, This is Step 2 of nausea and vomiting management. Give if nausea not resolved 15 minutes after giving ondansetron (ZOFRAN). If nausea not resolved in 15-30 minutes, Notify provider. Group 3: senna-docusate (SENOKOT-S/PERICOLACE) 8.6-50 MG per tablet 1 tabletJump to med 1 tablet, Oral, 2 TIMES DAILY PRN, constipation, Starting on Tue08/24/24 at 1527, If no bowel movement in 24 hours, [...] 2 TIMES DAILY PRN, constipation, Starting on Tue08/24/24 at 1527, IF more than 1 constipation PRN medication is ordered, administer step-jane as indicated, moving to the next step ONLY if prior step ineffective. Step 1: senna-docusate (SENOKOT-S; PERICOLACE) OR bisacodyl (DULCOLAX) EC tablet Step 2: polyethylene glycol (MIRALAX/GLYCOLAX) Step 3: bisacodyl (DULCOLAX) suppository Step 4: enema Hold for loose stools. documented in this encounter Care Teams Customer Care Manager Relationship Specialty Start Date End Date Preet Huff PCP - General 06/24/11 documented as of this encounter
--- OUTSIDE RECORDS SUMMARY | 2024-08-31 13:05 | XMS_ITS | Encounter Summary ---
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) [facility] Emergency Dept [address] [place] [address] Phone: tel:[phone] fax: Referral ID Status Reason Start Date Expiration Date Visits Re quested Visits Authorized [id number] 1 1 Encounter Details Date Type Department Care Team (Late st Contact Info) Description 05/23/2024 6:02 PM CDT Anesthesia Event [facility] [address] [place] [address] Tom Castro MD [facility] [id number] [place] [address] Pan Michelle MD [facility] [id number] [place] [address] Anesthesia Record Procedure Summary Procedure Name Responsible Anesthesiologist Anesthesia Start Time Anesthesia Stop Time Incision and drainage, debridement of scrotal skin and subcutaneous tissues for necrotizing soft tissue infection of the scrotum (Scrotum) Tom Castro MD 05/23/24 18005/23/241918 Events Date Time Event Comment 05/23/2024 1711 1718 BANJO REPAIRER Ready for Procedure 180 AN REASSESS I attest that I have identified and re-evaluated the patient immediately before the induction of anesthesia and I am satisfied that the anesthetic plan is suitable for the patient's condition and procedure. The first vital signs recorded are pre- induction. Donnell Ramos APRN BANJO REPAIRER 1801 An Start Anesthesia Star t is defined as when the anesthesia provider assumed care, began anesthesia prep, remained continuously present with the patient, and excludes all time for performing the pre-anesthesia evaluation. The Pre-Anesthesia Evaluation was completed before Anesthesia Start. 1803 An Start Data 181 An Induction 1814 MD Present 182 An Intubation 182 MD [...] Thigh 03/04/24 0939 by Incision/Surgical Site 05/23/24; 1855; S crotum; fluffs/roll x1 surgical incision/wound 05/23/241854 by Lisa Guerrero, LINDA Peripheral IV 05/23/24; 1355; 18 G ; Anterior, Right; Upper forearm; Chlorhexidine 05/23/24 1355 by Kassidy Morel RN 05/25/24 1914 by [...] Tube Size: 8 mm; VL Blade Size: Austin scope 3; Grade View: 1; Placement Person: BANJO REPAIRER; Attempts: 1 05/23/24 182 by Donnell Ramos APRN BANJO REPAIRER 05/23/24 191 by Donnell Ramos APRN BANJO REPAIRER Urethral Catheter 05/23/24; 1839; No; Surgical procedure; [...] on file Legal Sex Male 5:12 AM ANIMATOR Gender Identity Male 12/05/2017 10:39 AM ANIMATOR Sexual Orientation Not on file documented as [...] Anesthesia Procedure Notes - Donnell Ramos APRN BANJO REPAIRER - 05/23/2024 6:31 PM CDT Associated Order(s): Airway Airway Patient location during procedure: OR Procedure Start/Stop Times: 05/23/2024 6:21 PM Staff - BANJO REPAIRER: Yasemin Almaguer APRN BANJO REPAIRER Performed By: CRNAIndications and Patient Condition Indications [...] ESRD (end stage renal disease) (H) dialysis [facility] History of staph septicemia 12/20/2015 Hyperkalemia Hyperlipemia [...] and realistic alternatives discussed. Questions answered and patient/community health program representative(s) expressed understanding. - Discussed: - Discussed [...] st Contact Info) Description 09/27/2024 1:00 PM ANIMATOR Office Visit [facility] [address] [place] [phone] Rober Saravia MD [address] [place] [id number] documented as of this encounter Procedures Procedure Name Priority Date/Time Associated Diagnosis Comments ANE AIRWAY ETT PERFORMABLE Routine 05/23/2024 6:21 PM CDT documented in this encounter Results * ANE AIRWAY ETT PERFORMABLE (05/23/2024 6:21 PM CDT) Narrative Donnell Ramos APRN BANJO REPAIRER - 05/23/2024 6:21 PM CDT Donnell Ramos APRN BANJO REPAIRER 05/23/2024 6:33 PM Airway Patient location during procedure: OR Procedure Start/Stop Times: 05/23/2024 6:21 PM Staff - BANJO REPAIRER: Yasemin Almaguer APRN CRNA Performed By: CRNAIndications [...] Time: 05/23/2024 6:21 PM Tom Castro MD [place] [facility] Final Result documented in this encounter Visit Diagnoses Not [...] mg documented in this encounter Care Teams Devulcanizer Tender Relationship Specialty Start Date End Date Preet Huff PCP - General 06/24/11 documented as of this encounter
--- OUTSIDE RECORDS SUMMARY | 2024-08-31 13:05 | XMS_ITS | Encounter Summary ---
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 Video Technician End Date B Ahefnod-U-Gcate Acid (WESCAPS PO) Take 1 capsule by [...] original note were not included. [facility] WOC Nurse Inpatient Assessment Consulted [...] of care with: Patient, Nurse, and Physicians Desktop Support Associate WO nurse follow-up plan: 1-2 times a week Notify WO if wound(s) deteriorate. Nursing to notify the Provider(s) and re-consult the [facility] Nurse if new skin concern. DATA: [...] Herminio Mckinley RN CWOCN Contact Via [facility] Nurse (Sherry) Dept. Office Number: [phone] * Poppy Bernardo PA-C - 05/23/2024 2:19 PM CDT [facility] Consultation by [facility] Urology Herminiocammie Victor Age: [age] year old [...] continue to follow along. Poppy Bernardo PA-C [facility] Urology [phone] Chief Complaint: Penis/Scrotum problem History is obtained [...] mouth every evening 30 tablet 3 B Xlqwlkz-O-Txngx Acid (WESCAPS PO) Take 1 capsule by [...] veins which are not included in the exozb-xg-lcvf. 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 No destructive lesions in the bones. IMPRESSION: 1. 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 2. Other chronic findings as discussed above. Findings were discussed with Dr. Kenna Coe at 2:35 PM. MIKE LIPSCOMB MD SYSTEM ID: [id number] Cosigned by Lizandro Barron MD at 05/23/2024 6:06 PM CDT Associated attestation - Lizandro Barron MD - 05/23/2024 6:06 PM CDT Physician Attestation I saw and evaluated Herminio Victor as part of a shared RN ACUTE/PA visit. I personally reviewed the vital signs, [...] Morel RN - 05/23/2024 4:59 PM CDT [facility] ED Nurse [...] 2. Lift room needed: No. Bariatric: No Training Instructor Needed: No Isolation: No. Infection: Not Applicable. [...] POS Antibody Screen Negative SPECIMEN EXPIRATION DATE [id number] BLOOD CULTURE ABO/RH TYPE AND SCREEN CT Abdomen Pelvis w Contrast Final Result IMPRESSION: 1. 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 2. Other chronic findings as discussed above. Findings were discussed with Dr. Kenna Coe at 2:35 PM. MIKE LIPSCOMB MD SYSTEM ID: [id number] Treatments provided: See MAR Family Comments: family updated by OBS brochure/video discussed/provided to patient: Yes ED Medications: Medications sodium chloride 0.9 % bag [address] scan flush use (100 mLs As instructed $Given 05/23/24 9667) HOLD: warfarin (COUMADIN) therapy (has no administration [...] POS Antibody Screen Negative SPECIMEN EXPIRATION DATE [id number] BLOOD CULTURE ABO/RH TYPE AND SCREEN Imaging CT Abdomen Pelvis w Contrast Final Result IMPRESSION: 1. 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 2. Other chronic findings as discussed above. Findings were discussed with Dr. Kenna Coe at 2:35 PM. MIKE LIPSCOMB MD SYSTEM ID: [id number] Independent Interpretation None ED Course Medications Administered [...] care. [address] Cheek [facility] who accepts 8522 Arianna Goodman (Mother) [phone] (Home Phone) Updated mom Additional Documentation None Medical Decision Making / Diagnosis [facility] Diagnoses: None MIPS None MDM Herminio [...] RN - 05/23/2024 1:14 PM CDT Bed: 27 Expected date: 05/23/24 Expected time: Means of arrival: Ambulance Comments: [place] 332 documented in this encounter Miscellaneous Notes * Plan of Care - Rand Ochoa OTR - 05/30/2024 5:21 PM CDT Occupational Therapy Discharge Summary Reason for therapy discharge: Discharged to home with home therapy. Progress towards therapy goal(s). See goals on Care Plan in [facility] electronic health record for goal details. Goals partially met. Barriers to achieving goals: discharge from facility. Therapy recommendation(s): Continued therapy is recommended. Rationale/Recommendations: Patient appears safe and able todischarge home with intermittent assist from family with higher level IADLS (just like baseline). Pt wouldbeenfit from HHOT to progress ADL tolerance. Pt not seen by rewriter on this date, note written based on [...] mobility. * Pharmacy-Anticoagulation Service - Joni Steel [facility] - 05/30/2024 3:00 PM CDT Images from the original note were not included. 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 INR Goal= 2-3 Warfarin REGISTERED NURSE SURGICAL SERVICES Regimen: 5 mg M-F and No dose [...] Fall Risk Recent Flowsheet Documentation Taken 05/29/2024 0200 by Marce Leon RN Safety Promotion/Fall Prevention: activity supervised clutter free environment maintained increase visualization of patient nonskid shoes/slippers when out of bed safety round/check completed room near nurse's station Intervention: Prevent Skin Injury Recent Flowsheet Documentation Taken 05/29/2024 0020 by Marce Leon RN Body Position: position changed independently Intervention: Prevent and Manage VTE (Venous Thromboembolism) Risk Recent Flowsheet Documentation Taken 05/29/2024 0020 by Marce Leon RN VTE Prevention/Management: SCDs [...] Documentation Taken 05/29/2024 0020 by Marce Leon, RN Head of Bed (HOB) Positioning: HOB [...] Skin Pressure Protection: absorbent pad utilized/changed Taken 05/28/20241854 by Heidi Koo RN Body Position: supine, [...] Manage Fall Risk Recent Flowsheet Documentation Taken 05/28/2024 08 by Edie Pack RN Safety Promotion/Fall Prevention: activity supervised assistive device/personal items within reach clutter free environment maintained nonskid shoes/slippers when out of bed safety round/check completed Intervention: Prevent Skin Injury Recent Flowsheet Documentation Taken 05/28/2024 0810 by Edie Pack RN Body Position: position changed independently Intervention: Prevent and Manage VTE (Venous Thromboembolism) Risk Recent Flowsheet Documentation Taken 05/28/2024 0810 by Edie Pack RN VTE Prevention/Management: SCDs off (sequential compression devices) Intervention: Prevent Infection Recent Flowsheet Documentation Taken 05/28/2024 0810 by Edie Pack RN Infection Prevention: single patient room provided rest/sleep promoted hand hygiene promoted Goal: Optimal Comfort and Wellbeing Outcome: Progressing Intervention: Monitor Pain and Promote Comfort Recent Flowsheet Documentation Taken 05/28/2024 0810 by Edie Pack RNaqua ammonia operator Interventions: declines Goal: Readiness for Transition of Care Outcome: Progressing Problem: Infection Goal: Absence of Infection Signs and Symptoms Outcome: Progressing Problem: Comorbidity Management Goal: Blood Glucose Levels Within Targeted Range Outcome: Progressing Intervention: Monitor and Manage Glycemia Recent Flowsheet Documentation Taken 05/28/2024 0810 by Edie Pack RN Glycemic Management: blood glucose monitored Medication Review/Management: medications reviewed Problem: Skin Injury Risk Increased Goal: Skin Health and Integrity Outcome: Progressing Intervention: Plan: Nurse Driven Intervention: Moisture Management Recent Flowsheet Documentation Taken 05/28/2024 0810 by Edie Pack RN Moisture Interventions: Encourage [...] documentation flowsheets. Pertinent assessments: Assumed cares @ [phone].Disoriented to situation and time. VSS on RA. [...] regular toileting Bathing/Skin Care: moisturizer applied Taken 05/27/2024 180 by Kristin Lauren RN Moisture Interventions: Encourage [...] Manage Fall Risk Recent Flowsheet Documentation Taken 05/27/2024919 by Edie Pack RN Safety Promotion/Fall Prevention: [...] Flowsheet Documentation Taken 05/27/2024919 by Edie Pack RNaqua ammonia operator Interventions: declines Goal: Readiness for Transition [...] documentation flowsheets. Pertinent assessments: Assumed cares @ [phone].Disoriented to time and situation. VSS on RA. [...] bedrest * Pharmacy-Anticoagulation Service - Luis Collado [facility] - 05/26/2024 4:50 PM CDT Clinical Pharmacy - Warfarin Dosing Consult Pharmacy has been consulted to manage this patient???s warfarin therapy. Indication: DVT/PE Prophylaxis Therapy Goal: INR 2-3 Warfarin Prior to Admission: Yes Warfarin REGISTERED NURSE SURGICAL SERVICES Regimen: 5 mg M-F and No dose SatMindy Recent documented change in oral intake/nutrition: Unknown [...] Flowsheet Documentation Taken 05/25/2024 0910 by Jessica Pza RN VTE Prevention/Management: SCDs off (sequential compression devices) Intervention: Prevent Infection Recent Flowsheet Documentation Taken 05/25/2024 0910 by Jesscia Paz RN Infection Prevention: personal protective equipment [...] shift note. Outcome: Progressing Flowsheets (Taken 05/24/2024 9469) Outcome Evaluation: Scrotal dressing changed twice. Did [...] Thromboembolism) Risk Recent Flowsheet Documentation Taken 05/24/2024 09 by Jessica Paz RN VTE Prevention/Management: SCDs [...] member and Thelma (aunt) via phone and [phone] Pertinent Information: outside meds--none added Changes made to REGISTERED NURSE SURGICAL SERVICES medication list: Added: none Deleted: norvasc, lipitor, Changed: protonix Allergies reviewed with patient and updates made in EHR: yes Medication History Completed By: Graham Joseph RPH 05/23/2024 9:51 PM REGISTERED NURSE SURGICAL SERVICES Med List Medication Sig Last Dose B Zosjwlf-T-Nwttc Acid (WESCAPS PO) Take 1 capsule by [...] and procedure to be performed. A 16 Kyrgyz coud?? catheter was placed through the urethra, [...] stable condition. Lizandro Barron MD Urology [facility] documented in this encounter Plan of Treatment Upcoming Encounters Date Type Department Care Team (Late st Contact Info) Description 09/27/2024 1:00 PM CORPORATE COORDINATOR Office Visit [facility] [place] [address] [place] [phone] Jaxon Buenrostro MD [address] [place] [address] Scheduled Referrals Name Type Priority Associated Diagnoses [...] 1:40 PM CDT 05/30/2024 1:46 PM CDT us Antonino DEAN - BEAKER POCT Final Resul t LABORATORY [facility] Acute Care Lab [address] Lab (1st floor, no room number) [place] [address], [facility] * Glucose by meter (05/30/2024 7:13 AM CDT) GLUCOSE BY METER POCT 82 70 - 99 mg/dL 05/30/2024 7:19 AM CDT LABORATORY POC Blood, Capillary BLOOD SPECIMEN / Unknown 05/30/2024 7:13 AM CDT 05/30/2024 7:19 AM CDT Antonino Cheek MD LAB - BEAKER POCT Final Resul t LABORATORY [facility] Lab [address] Lab (1st floor, no room number) [place] [address] * (ABNORMAL) INR (05/30/2024 6:54 AM CDT) [facility] INR 2.26(H) 0.85 - 1.15 05/30/2024 7:20 AM CDT LABORATORY Blood STRUCTURE OF RIGHT HAND / Unknown Venipuncture / Unknown 05/30/2024 6:54 AM CDT 05/30/2024 7:06 AM CDT Antonino Cheek MD LAB - BLOOD ORDERABLES Final Result LABORATORY [facility] Lab [address] Lab (1st floor, no room number) [place] [address] * (ABNORMAL) Basic metabolic panel (05/30/2024 6:54 AM CDT) [facility] Sodium 133(L) 135 - 145 mmol/L [...] CDT Charles Mcneal MD LAB - BLOOD ORDERABLES Final Result LABORATORY [facility] Acute Care Lab [address] [facility] Lab (1st floor, no room number) [place] [address], [facility] * (ABNORMAL) CBC [...] 6:54 AM CDT 05/30/2024 7:06 AM CDT us Charles Mcneal MD LAB - BLOOD ORDERABLES Final Result LABORATORY [facility] Care Lab [address] Lab (1st floor, no room number) [address] * (ABNORMAL) Glucose by meter (05/30/2024 2:18 AM CDT) GLUCOSE BY METER POCT 138(H) 70 - 99 mg/dL 05/30/2024 2:24 AM CDT LABORATORY POC Blood, Capillary BLOOD SPECIMEN / Unknown 05/30/2024 2:18 AM CDT 05/30/2024 2:24 AM CDT us Antonino Cheek MD LAB - BEAKER POCT Final Resul t LABORATORY POC [facility] Lab [address] Lab (1st floor, no room number) [address] * (ABNORMAL) Glucose by meter (05/29/2024 9:28 PM CDT) GLUCOSE BY METER POCT 160(H) 70 - 99 mg/dL 05/29/2024 9:35 PM CDT RH LABORATORY POC Blood, Capillary BLOOD SPECIMEN / Unknown 05/29/2024 9:28 PM CDT 05/29/2024 9:35 PM CDT Antonino Cheek MD LAB - BEAKER POCT Final Resul t Performing Organization Address City/[facility]/ZIP Co de Phone Number LABORATORY [facility] Care Lab [address] Lab (1st floor, no room number) [place] [address], [facility] * (ABNORMAL) Glucose by meter (05/29/2024 5:54 PM CDT) GLUCOSE BY METER POCT 159(H) 70 - 99 mg/dL 05/29/2024 6:01 PM CDT LABORATORY POC Blood, Capillary BLOOD SPECIMEN / Unknown 05/29/2024 5:54 PM CDT 05/29/2024 6:01 PM CDT Antonino DEAN - BEXIANG POCT Final Resul t Performing Organization Address [facility]/ZIP Co de Phone Number LABORATORY [facility] Lab [address] Lab (1st floor, no room number) [place] [address], [facility] * (ABNORMAL) Glucose by meter (05/29/2024 1:41 PM CDT) GLUCOSE BY METER POCT 158(H) 70 - 99 mg/dL 05/29/2024 1:48 PM CDT LABORATORY POC Blood, Capillary BLOOD SPECIMEN / Unknown 05/29/2024 1:41 PM CDT 05/29/2024 1:48 PM CDT Antonino DEAN - BEXIANG POCT Final Resul t LABORATORY [facility] Lab [address] Lab (1st floor, no room number) [place] [address], [facility] * Glucose by meter (05/29/2024 7:54 AM CDT) GLUCOSE BY METER POCT 90 70 - 99 mg/dL 05/29/2024 8:01 AM CDT LABORATORY POC Blood, Capillary BLOOD SPECIMEN / Unknown 05/29/2024 7:54 AM CDT 05/29/2024 8:01 AM CDT Antonino Cheek MD LAB - BEAKER POCT Final Resul t RH LABORATORY POC [facility] Lab [address] Lab (1st floor, no room number) [place] [address], [facility] * (ABNORMAL) INR (05/29/2024 6:22 AM CDT) Pathologist [facility] INR 1.92(H) 0.85 - 1.15 05/29/2024 6:52 AM CDT LABORATORY Blood STRUCTURE OF RIGHT HAND / Unknown Venipuncture / Unknown 05/29/2024 6:22 AM CDT 05/29/2024 6:40 AM CDT us Antonino Cheek MD LAB - BLOOD ORDERABLES Final Result LABORATORY [facility] Care Lab [address] Lab (1st floor, no room number) [place] [address], [facility] * (ABNORMAL) Basic [...] - 15 mmol/L 05/29/2024 7:01 AM CDT RH LABORATORY Urea Nitrogen 30.7(H) 8.0 - 23.0 mg/dL 05/29/2024 7:01 AM CDT RH LABORATORY Creatinine 6.71(H) 0.67 - 1.17 mg/dL 05/29/2024 7:01 AM CDT RH LABORATORY GFR Estimate 9(L) >60 mL/min/1.7 3m2 05/29/2024 7:01 AM CDT RH LABORATORY Comment:eGFR calculated usin [...] CDT Charles Mcneal MD LAB - BLOOD ORDERABLES Final Result RH LABORATORY [facility] Acute Care Lab [address] Lab (1st floor, no room number) [place] [address], [facility] * (ABNORMAL) CBC with platelets (05/29/2024 6:22 [...] 6:22 AM CDT 05/29/2024 6:40 AM CDT us Charles Mcneal MD LAB - BLOOD ORDERABLES Final Result LABORATORY [facility] Lab [address] Lab (1st floor, no room number) [address] * (ABNORMAL) Glucose by meter (05/29/2024 2:26 AM CDT) GLUCOSE BY METER POCT 103(H) 70 - 99 mg/dL 05/29/2024 2:33 AM CDT LABORATORY POC Blood, Capillary BLOOD SPECIMEN / Unknown 05/29/2024 2:26 AM CDT 05/29/2024 2:33 AM CDT us Antonino Cheek MD LAB - BEAKER POCT Final Resul t LABORATORY [facility] Lab [address] Lab (1st floor, no room number) [address] * (ABNORMAL) Glucose by meter (05/28/2024 9:50 PM CDT) GLUCOSE BY METER POCT 102(H) 70 - 99 mg/dL 05/28/2024 9:56 PM CDT RH LABORATORY POC Blood, Capillary BLOOD SPECIMEN / Unknown 05/28/2024 9:50 PM CDT 05/28/2024 9:56 PM CDT us Antonino Cheek MD LAB - BEAKER POCT Final Resul t LABORATORY [facility] Care Lab [address] Lab (1st floor, no room number) [place] [phone] [place] [address] * (ABNORMAL) Glucose by meter (05/28/2024 5:08 PM CDT) GLUCOSE BY METER POCT 254(H) 70 - 99 mg/dL 05/28/2024 5:16 PM CDT LABORATORY POC Blood, Capillary BLOOD SPECIMEN / Unknown 05/28/2024 5:08 PM CDT 05/28/2024 5:16 PM CDT Antonino Cheek MD LAB - BEAKER POCT Final Resul t LABORATORY [facility] Lab [address] Lab (1st floor, no room number) [place] [phone] [place] [address] * Glucose by meter (05/28/2024 1:58 PM CDT) GLUCOSE BY METER POCT 91 70 - 99 mg/dL 05/28/2024 2:05 PM CDT LABORATORY POC Blood, Capillary BLOOD SPECIMEN / Unknown 05/28/2024 1:58 PM CDT 05/28/2024 2:05 PM CDT us Antonino Cheek MD LAB - BEAKER POCT Final Resul t LABORATORY [facility] Care Lab [address] Lab (1st floor, no room number) [place] [phone], [facility] * (ABNORMAL) Glucose by meter (05/28/2024 7:48 AM CDT) GLUCOSE BY METER POCT 128(H) 70 - 99 mg/dL 05/28/2024 7:54 AM CDT LABORATORY POC Blood, Capillary BLOOD SPECIMEN / Unknown 05/28/2024 7:48 AM CDT 05/28/2024 7:54 AM CDT us Antonino Cheek MD LAB - BEAKER POCT Final Resul t LABORATORY [facility] Lab [address] Lab (1st floor, no room number) [place] [phone] * Extra Purple Top EDTA (LAB USE ONLY) (05/28/2024 6:07 AM CDT) Hold Specimen [facility] 05/28/2024 7:32 AM CDT RH LABORATORY Blood STRUCTURE OF LEFT HAND / Unknown Venipuncture / Unknown 05/28/2024 6:07 AM CDT 05/28/2024 6:17 AM CDT us Antonino Cheek MD LAB - BLOOD ORDERABLES Final Result Performing Organization Address City/[facility]/ZIP Co de Phone Number [facility] Lab [address] Lab (1st floor, no room number) [place] [address] * Extra Green Top Tube (LAB USE ONLY) (05/28/2024 6:07 AM CDT) Hold Specimen [facility] 05/28/2024 7:32 AM CDT RH LABORATORY Blood STRUCTURE OF LEFT HAND / Unknown Venipuncture / Unknown 05/28/2024 6:07 AM CDT 05/28/2024 6:17 AM CDT us Antonino Cheek MD LAB - BLOOD ORDERABLES Final Result RH LABORATORY [facility] Acute Care Lab [address] Lab (1st floor, no room number) [place] [phone] [place] [address] * (ABNORMAL) INR (05/28/2024 6:07 AM CDT) Pathologist [facility] INR 1.87(H) 0.85 - 1.15 05/28/2024 6:27 AM CDT LABORATORY Blood STRUCTURE OF LEFT HAND / Unknown Venipuncture / Unknown 05/28/2024 6:07 AM CDT 05/28/2024 6:17 AM CDT us Antonino Cheek MD LAB - BLOOD ORDERABLES Final Result [facility] Lab [address] Lab (1st floor, no room number) [place] [phone] * (ABNORMAL) Hemoglobin (05/28/2024 6:07 AM CDT) Pathologist [facility] Hemoglobin 7.7(L) 13.3 - 17.7 g/dL 05/28/2024 9:02 AM CDT LABORATORY Blood STRUCTURE OF LEFT HAND / Unknown Venipuncture / Unknown 05/28/2024 6:07 AM CDT 05/28/2024 6:17 AM CDT us Dileep Anders MD LAB - BLOOD ORDERABLES Final Result [facility] Care Lab [address] Lab (1st floor, no room number) [place] [phone] * (ABNORMAL) Basic metabolic panel (05/28/2024 6:07 [...] 6:07 AM CDT 05/28/2024 6:17 AM CDT us Dileep Anders MD LAB - BLOOD ORDERABLES Final Result LABORATORY [facility] Acute Care Lab [address] [facility] Lab (1st floor, no room number) [place] [address], [facility] * (ABNORMAL) Glucose by meter (05/28/2024 2:19 AM CDT) [facility] GLUCOSE BY METER POCT 102(H) 70 - 99 mg/dL 05/28/2024 2:26 AM CDT LABORATORY POC Blood, Capillary BLOOD SPECIMEN / Unknown 05/28/2024 2:19 AM CDT 05/28/2024 2:26 AM CDT Antonino Cheek MD LAB - BEAKER POCT Final Resul t Performing Organization Address [facility]/ZIP Co de Phone Number LABORATORY [facility] Lab [address] Lab (1st floor, no room number) [address] [place] [address] * (ABNORMAL) Glucose by meter (05/27/2024 9:05 PM CDT) GLUCOSE BY METER POCT 148(H) 70 - 99 mg/dL 05/27/2024 9:13 PM CDT LABORATORY POC Blood, Capillary BLOOD SPECIMEN / Unknown 05/27/2024 9:05 PM CDT 05/27/2024 9:13 PM CDT Antonino Cheek MD LAB - BEAKER POCT Final Resul t Performing Organization Address [facility]/ZIP Co de Phone Number LABORATORY [facility] Lab [address] Lab (1st floor, no room number) [place] [phone] [place] [address] * (ABNORMAL) Glucose by meter (05/27/2024 5:11 PM CDT) GLUCOSE BY METER POCT 148(H) 70 - 99 mg/dL 05/27/2024 5:20 PM CDT LABORATORY POC Blood, Capillary BLOOD SPECIMEN / Unknown 05/27/2024 5:11 PM CDT 05/27/2024 5:20 PM CDT Antonino Cheek MD LAB - BEAKER POCT Final Resul t LABORATORY [facility] Lab [address] Lab (1st floor, no room number) [address] * (ABNORMAL) Glucose by meter (05/27/2024 11:42 AM CDT) GLUCOSE BY METER POCT 149(H) 70 - 99 mg/dL 05/27/2024 11:49 AM CDT RH LABORATORY POC Blood, Capillary BLOOD SPECIMEN / Unknown 05/27/2024 11:42 AM CDT 05/27/2024 11:49 AM CDT Antonino Cheek MD LAB - BEAKER POCT Final Resul t LABORATORY [facility] Lab [address] Lab (1st floor, no room number) [place] [address], [facility] * (ABNORMAL) Glucose by meter (05/27/2024 7:44 AM CDT) GLUCOSE BY METER POCT 108(H) 70 - 99 mg/dL 05/27/2024 7:51 AM CDT RH LABORATORY POC Blood, Capillary BLOOD SPECIMEN / Unknown 05/27/2024 7:44 AM CDT 05/27/2024 7:51 AM CDT Antonino Cheek MD LAB - BEAKER POCT Final Resul t Performing Organization Address [facility]/ZIP Co de Phone Number LABORATORY [facility] Lab [address] Lab (1st floor, no room number) [place] [address], [facility] * (ABNORMAL) INR (05/27/2024 7:03 AM CDT) INR 1.81(H) 0.85 - 1.15 05/27/2024 7:17 AM CDT RH LABORATORY Blood STRUCTURE OF RIGHT HAND / Unknown Venipuncture / Unknown 05/27/2024 7:03 AM CDT 05/27/2024 7:07 AM CDT us Antonino Cheek MD LAB - BLOOD ORDERABLES Final Result [facility] Lab [address] Lab (1st floor, no room number) [place] [phone] [place] [address] * (ABNORMAL) Glucose by meter (05/27/2024 2:03 AM CDT) GLUCOSE BY METER POCT 157(H) 70 - 99 mg/dL 05/27/2024 2:10 AM CDT RH LABORATORY POC Blood, Capillary BLOOD SPECIMEN / Unknown 05/27/2024 2:03 AM CDT 05/27/2024 2:10 AM CDT Antonino Cheek MD LAB - BEAKER POCT Final Resul t LABORATORY [facility] [address] Lab (1st floor, no room number) [address] * (ABNORMAL) Glucose by meter (05/26/2024 9:29 PM CDT) GLUCOSE BY METER POCT 155(H) 70 - 99 mg/dL 05/26/2024 9:37 PM CDT LABORATORY POC Blood, Capillary BLOOD SPECIMEN / Unknown 05/26/2024 9:29 PM CDT 05/26/2024 9:37 PM CDT Antonino Cheek MD LAB - BEAKER POCT Final Resul t LABORATORY [facility] [address] Lab (1st floor, no room number) [place] [phone] * (ABNORMAL) Glucose by meter (05/26/2024 4:10 PM CDT) GLUCOSE BY METER POCT 174(H) 70 - 99 mg/dL 05/26/2024 4:19 PM CDT RH LABORATORY POC Blood, Capillary BLOOD SPECIMEN / Unknown 05/26/2024 4:10 PM CDT 05/26/2024 4:19 PM CDT Antonino Cheek MD LAB - BEAKER POCT Final Resul t LABORATORY POC [facility] [address] Lab (1st floor, no room number) [address] * (ABNORMAL) INR (05/26/2024 4:09 PM CDT) INR 1.67(H) 0.85 - 1.15 05/26/2024 4:28 PM CDT RH LABORATORY Blood STRUCTURE OF LEFT UPPER LIMB / Unknown Venipuncture / Unknown 05/26/2024 4:09 PM CDT 05/26/2024 4:15 PM CDT Antonino Cheek MD LAB - BLOOD ORDERABLES Final Result Performing Organization Address City/[facility]/ZIP Co de Phone Number LABORATORY [facility] Lab [address] Lab (1st floor, no room number) [address] * (ABNORMAL) Glucose by meter (05/26/2024 11:37 AM CDT) GLUCOSE BY METER POCT 197(H) 70 - 99 mg/dL 05/26/2024 11:44 AM CDT LABORATORY POC Blood, Capillary BLOOD SPECIMEN / Unknown 05/26/2024 11:37 AM CDT 05/26/2024 11:44 AM CDT Antonino Cheek MD LAB - BEAKER POCT Final Resul t LABORATORY [facility] Lab [address] Lab (1st floor, no room number) [address] * Glucose by meter (05/26/2024 8:22 AM CDT) GLUCOSE BY METER POCT 85 70 - 99 mg/dL 05/26/2024 8:29 AM CDT LABORATORY POC Blood, Capillary BLOOD SPECIMEN / Unknown 05/26/2024 8:22 AM CDT 05/26/2024 8:29 AM CDT us Antonino [facility] POCT Final Resul t RH LABORATORY [facility] Lab [address] Lab (1st floor, no room number) [place] [address], [facility] * (ABNORMAL) CBC [...] NRBCs 0.0 10e3/uL 05/26/2024 6:10 AM CDT LABORATORY Blood STRUCTURE OF RIGHT UPPER LIMB / Unknown Venipuncture / Unknown 05/26/2024 5:47 AM CDT 05/26/2024 6:06 AM CDT us Antonino Cheek MD LAB - BLOOD ORDERABLES Final Result LABORATORY [facility] Lab [address] Lab (1st floor, no room number) [place] [address], [facility] * (ABNORMAL) Basic [...] CDT Antonino Cheek MD LAB - BLOOD ORDERABLES Final Result LABORATORY [facility] Lab [address] Lab (1st floor, no room number) [place] [address] * (ABNORMAL) Glucose by meter (05/26/2024 1:57 AM CDT) [facility] GLUCOSE BY METER POCT 123(H) 70 - 99 mg/dL 05/26/2024 2:04 AM CDT LABORATORY POC Blood, Capillary BLOOD SPECIMEN / Unknown 05/26/2024 1:57 AM CDT 05/26/2024 2:04 AM CDT Antonino Cheek MD LAB - BEAKER POCT Final Resul t Performing Organization Address [facility]/ZIP Co de Phone Number LABORATORY [facility] [address] Lab (1st floor, no room number) [address] * (ABNORMAL) Glucose by meter (05/25/2024 9:32 PM CDT) GLUCOSE BY METER POCT 155(H) 70 - 99 mg/dL 05/25/2024 9:39 PM CDT RH LABORATORY POC Blood, Capillary BLOOD SPECIMEN / Unknown 05/25/2024 9:32 PM CDT 05/25/2024 9:39 PM CDT Antonino Cheek MD LAB - BEAKER POCT Final Resul t Performing Organization Address [facility]/ZIP Co de Phone Number LABORATORY [facility] [address] Lab (1st floor, no room number) [address] * (ABNORMAL) Glucose by meter (05/25/2024 7:06 PM CDT) GLUCOSE BY METER POCT 183(H) 70 - 99 mg/dL 05/25/2024 7:14 PM CDT RH LABORATORY POC Blood, Capillary BLOOD SPECIMEN / Unknown 05/25/2024 7:06 PM CDT 05/25/2024 7:14 PM CDT us Antonino Cheek MD LAB - BEAKER POCT Final Resul t LABORATORY [facility] [address] Lab (1st floor, no room number) [address] * (ABNORMAL) Glucose by meter (05/25/2024 5:29 PM CDT) GLUCOSE BY METER POCT 142(H) 70 - 99 mg/dL 05/25/2024 5:36 PM CDT RH LABORATORY POC Blood, Capillary BLOOD SPECIMEN / Unknown 05/25/2024 5:29 PM CDT 05/25/2024 5:36 PM CDT us Antonino Cheek MD LAB - BEAKER POCT Final Resul t LABORATORY POC [facility] Lab [address] Lab (1st floor, no room number) [place] [phone] [place] [address] * Vancomycin level (05/25/2024 2:04 PM CDT) Vancomycin 11.9 ug/mL 05/25/2024 3:28 PM CDT LABORATORY Comment: Traditional Dosing Therapeutic Range: Trough 10-15 ug/mL Peak 20-40 ug/mL Critical: Greater than 25.0 ug/mL Blood STRUCTURE OF RIGHT UPPER LIMB / Unknown Venipuncture / Unknown 05/25/2024 2:04 PM CDT 05/25/2024 2:07 PM CDT us Antonino Cheek MD LAB - BLOOD ORDERABLES Final Result Performing Organization Address City/[facility]/ZIP Co de Phone Number [facility] Lab [address] Lab (1st floor, no room number) [place] [phone] * Extra Purple Top EDTA (LAB USE ONLY) (05/25/2024 2:04 PM CDT) Hold Specimen JIC 05/25/2024 3:17 PM CDT LABORATORY Blood STRUCTURE OF RIGHT UPPER LIMB / Unknown Venipuncture / Unknown 05/25/2024 2:04 PM CDT 05/25/2024 2:07 PM CDT us Antonino Cheek MD LAB - BLOOD ORDERABLES Final Result [facility] Lab [address] Lab (1st floor, no room number) [place] [phone] [place] [address] * Extra Green Top Tube (LAB USE ONLY) (05/25/2024 2:04 PM CDT) Hold Specimen JIC 05/25/2024 3:17 PM CDT LABORATORY Blood STRUCTURE OF RIGHT UPPER LIMB / Unknown Venipuncture / Unknown 05/25/2024 2:04 PM CDT 05/25/2024 2:07 PM CDT Antonino Cheek MD LAB - BLOOD ORDERABLES Final Result LABORATORY [facility] Lab [address] Lab (1st floor, no room number) [address] [place] [address] * Glucose by meter (05/25/2024 2:01 PM CDT) GLUCOSE BY METER POCT 70 70 - 99 mg/dL 05/25/2024 2:08 PM CDT LABORATORY POC Blood, Capillary BLOOD SPECIMEN / Unknown 05/25/2024 2:01 PM CDT 05/25/2024 2:08 PM CDT Antonino Cheek MD LAB - BEAKER POCT Final Resul t LABORATORY POC [facility] Lab [address] Lab (1st floor, no room number) [place] [phone] * Hepatitis B surface antigen (05/25/2024 9:25 AM CDT) Hepatitis B Surface Antigen Nonreactive Nonreactive 05/25/2024 2:23 PM CDT UU LABORATORY Blood BLOOD SPECIMEN / Unknown Venipuncture / Unknown 05/25/2024 9:25 AM CDT 05/25/2024 10:13 AM CDT Jose Enrique Naylor MD LAB - BLOOD ORDERABLES Final Res ult UU LABORATORY [facility] [address] [facility], Room [address] [address] [...] 9:25 AM CDT 05/25/2024 10:13 AM CDT us Jose Enrique Naylor MD LAB - BLOOD ORDERABLES Final Res ult U LABORATORY [facility] Lab [address] [facility], Room [address] [address] * Glucose by meter (05/25/2024 5:35 AM CDT) GLUCOSE BY METER POCT 86 70 - 99 mg/dL 05/25/2024 5:42 AM CDT LABORATORY POC Blood, Capillary BLOOD SPECIMEN / Unknown 05/25/2024 5:35 AM CDT 05/25/2024 5:42 AM CDT us Antonino Cheek MD LAB - BEAKER POCT Final Resul t LABORATORY POC [facility] Lab [address] Lab (1st floor, no room number) [place] [address], [facility] * Glucose by meter (05/25/2024 2:01 AM CDT) GLUCOSE BY METER POCT 86 70 - 99 mg/dL 05/25/2024 2:08 AM CDT RH LABORATORY POC Blood, Capillary BLOOD SPECIMEN / Unknown 05/25/2024 2:01 AM CDT 05/25/2024 2:08 AM CDT Antonino Cheek MD LAB - BEAKER POCT Final Resul t LABORATORY [facility] [address] Lab (1st floor, no room number) [place] [phone] * Glucose by meter (05/24/2024 8:52 PM CDT) GLUCOSE BY METER POCT 96 70 - 99 mg/dL 05/24/2024 8:59 PM CDT RH LABORATORY POC Blood, Capillary BLOOD SPECIMEN / Unknown 05/24/2024 8:52 PM CDT 05/24/2024 8:59 PM CDT Antonino DEAN - BEAKER POCT Final Resul t Performing Organization Address [facility]/ZIP Co de Phone Number LABORATORY [facility] [address] Lab (1st floor, no room number) [place] [phone], [facility] * Glucose by meter (05/24/2024 5:05 PM CDT) GLUCOSE BY METER POCT 84 70 - 99 mg/dL 05/24/2024 5:32 PM CDT RH LABORATORY POC Blood, Capillary BLOOD SPECIMEN / Unknown 05/24/2024 5:05 PM CDT 05/24/2024 5:32 PM CDT us Antonino Cheek MD LAB - BEXIANG POCT Final Resul t LABORATORY [facility] [address] Lab (1st floor, no room number) [place] [phone] [place] [address] * (ABNORMAL) INR (05/24/2024 2:16 PM CDT) INR 1.16(H) 0.85 - 1.15 05/24/2024 2:34 PM CDT LABORATORY Blood BLOOD SPECIMEN / Unknown Venipuncture / Unknown 05/24/2024 2:16 PM CDT 05/24/2024 2:21 PM CDT us Lizandro Barron MD LAB - BLOOD ORDERABLES Final Re sult [facility] [address] [facility] Lab (1st floor, no room number) [place] [phone] [place] [address] * Glucose by meter (05/24/2024 12:20 PM CDT) GLUCOSE BY METER POCT 75 70 - 99 mg/dL 05/24/2024 12:26 PM CDT LABORATORY POC Blood, Capillary BLOOD SPECIMEN / Unknown 05/24/2024 12:20 PM CDT 05/24/2024 12:26 PM CDT us Antonino Cheek MD LAB - BEAKER POCT Final Resul t LABORATORY [facility] [address] Lab (1st floor, no room number) [place] [phone] * Glucose by meter (05/24/2024 9:12 AM CDT) GLUCOSE BY METER POCT 86 70 - 99 mg/dL 05/24/2024 9:19 AM CDT LABORATORY POC Blood, Capillary BLOOD SPECIMEN / Unknown 05/24/2024 9:12 AM CDT 05/24/2024 9:19 AM CDT us [facility]ek [facility] Final Resul t [facility] LAB[facility] Lab [address] Lab (1st floor, no room number) [place] [address], [facility] * (ABNORMAL) CBC [...] 6:09 AM CDT 05/24/2024 6:14 AM CDT us Antonino Cheek MD LAB - BLOOD ORDERABLES Final Result LABORATORY [facility] Lab [address] Lab (1st floor, no room number) [place] [address], [facility] * (ABNORMAL) Comprehensive [...] 6:09 AM CDT 05/24/2024 6:14 AM CDT us Antonino Cheek MD LAB - BLOOD ORDERABLES Final Result RH LABORATORY [facility] Lab [address] Lab (1st floor, no room number) [place] [address], [facility] * INR (05/24/2024 6:09 AM CDT) INR 1.14 0.85 - 1.15 05/24/2024 6:27 AM CDT LABORATORY Blood STRUCTURE OF LEFT HAND / Unknown Venipuncture / Unknown 05/24/2024 6:09 AM CDT 05/24/2024 6:14 AM CDT us Lizandro Barron MD LAB - BLOOD ORDERABLES Final Re sult LABORATORY [facility] Lab [address] Lab (1st floor, no room number) [place] [address], [facility] * (ABNORMAL) Glucose by meter (05/24/2024 4:49 AM CDT) GLUCOSE BY METER POCT 119(H) 70 - 99 mg/dL 05/24/2024 4:56 AM CDT LABORATORY POC Blood, Capillary BLOOD SPECIMEN / Unknown 05/24/2024 4:49 AM CDT 05/24/2024 4:56 AM CDT Antonino Cheek MD LAB - BEAKER POCT Final Resul t Performing Organization Address [facility]/ZIP Co de Phone Number LABORATORY [facility] [address] Lab (1st floor, no room number) [place] [address], [facility] * (ABNORMAL) Glucose by meter (05/24/2024 1:13 AM CDT) GLUCOSE BY METER POCT 100(H) 70 - 99 mg/dL 05/24/2024 1:20 AM CDT LABORATORY POC Blood, Capillary BLOOD SPECIMEN / Unknown 05/24/2024 1:13 AM CDT 05/24/2024 1:20 AM CDT us Antonino Cheek MD LAB - BEAKER POCT Final Resul t LABORATORY [facility] [address] Lab (1st floor, no room number) [place] [phone] [place] [address] * INR (05/23/2024 10:19 PM CDT) INR 1.04 0.85 - 1.15 05/23/2024 10:43 PM CDT LABORATORY Blood STRUCTURE OF LEFT UPPER LIMB / Unknown Venipuncture / Unknown 05/23/2024 10:19 PM CDT 05/23/2024 10:26 PM CDT us Lizandro Barron MD LAB - BLOOD ORDERABLES Final Re sult LABORATORY [facility] Lab [address] [facility] Lab (1st floor, no room number) [address] [place] [address] * Glucose by meter (05/23/2024 9:58 PM CDT) GLUCOSE BY METER POCT 83 70 - 99 mg/dL 05/23/2024 10:04 PM CDT LABORATORY POC Blood, Capillary BLOOD SPECIMEN / Unknown 05/23/2024 9:58 PM CDT 05/23/2024 10:04 PM CDT us Antonino Cheek MD LAB - BEAKER POCT Final Resul t LABORATORY POC [facility] Lab [address] Lab (1st floor, no room number) [address] * (ABNORMAL) Glucose by meter (05/23/2024 9:06 PM CDT) GLUCOSE BY METER POCT 47(LL) 70 - 99 mg/dL 05/23/2024 9:13 PM CDT LABORATORY POC Comment:Dr/RN Notified Blood, Capillary BLOOD SPECIMEN / Unknown 05/23/2024 9:06 PM CDT 05/23/2024 9:13 PM CDT Antonino Cheek MD LAB - BEAKER POCT Final Resul t LABORATORY [facility] [address] Lab (1st floor, no room number) [address] * Glucose by meter (05/23/2024 8:41 PM CDT) GLUCOSE BY METER POCT 78 70 - 99 mg/dL 05/23/2024 8:48 PM CDT LABORATORY POC Blood, Capillary BLOOD SPECIMEN / Unknown 05/23/2024 8:41 PM CDT 05/23/2024 8:48 PM CDT us Antonino Cheek MD LAB - BEAKER POCT Final Resul t LABORATORY [facility] [address] Lab (1st floor, no room number) [address] * (ABNORMAL) Glucose by meter (05/23/2024 7:55 PM CDT) GLUCOSE BY METER POCT 67(L) 70 - 99 mg/dL 05/23/2024 8:02 PM CDT LABORATORY POC Blood, Capillary BLOOD SPECIMEN / Unknown 05/23/2024 7:55 PM CDT 05/23/2024 8:02 PM CDT Antonino Cheek MD LAB - BEAKER POCT Final Resul t LABORATORY [facility] [address] Lab (1st floor, no room number) [address] * (ABNORMAL) Tissue Aerobic Bacterial Culture [...] Barron MD LAB - MICRO GENERAL ORDERABLES Final Result [facility] IDD LABORATORY [facility] Inf. Diseases Diag. Lab [address] [facility], Room [place] [phone] * (ABNORMAL) Gram Stain (05/23/2024 6:42 PM [...] Barron MD LAB - MICRO GENERAL ORDERABLES Final Result Performing Organization Address City/[facility] Co de Phone Number [facility] IDD LABORATORY [facility] Inf. Diseases Diag. Lab [address] [facility], Room [place] [phone] [place] [address] * Anaerobic Bacterial Culture Routine (05/23/2024 6:42 PM CDT) Culture 4+ Mixed Aerobic and Anaerobic dev JOJO 05/25/2024 2:01 PM CDT UU IDD LABORATORY Comment:No predominant organ ism Tissue SCROTAL STRUCTURE / Unknown Non-blood Collection / Unknown 05/23/2024 6:42 PM CDT 05/23/2024 6:46 PM CDT us Lizandro Barron MD LAB - MICRO GENERAL ORDERABLES Final Result [facility] IDD LABORATORY [facility] Inf. Diseases Diag. Lab [address] [facility], [address] [place] [address], [facility] * Glucose by meter (05/23/2024 5:41 PM CDT) GLUCOSE BY METER POCT 90 70 - 99 mg/dL 05/23/2024 5:49 PM CDT LABORATORY POC Blood, Capillary BLOOD SPECIMEN / Unknown 05/23/2024 5:41 PM CDT 05/23/2024 5:49 PM CDT us Vi Coe DO LAB - BEAKER POCT Final Result Performing Organization Address City/[facility]/ZIP Co de Phone Number LABORATORY POC [facility] Lab [address] Lab (1st floor, no room number) [place] [address] * EKG 12-lead, tracing only (05/23/2024 5:08 PM CDT) Systolic Blood Pressure mmHg RADIOLOGY RESULTS Diastolic Blood Pressure mmHg RADIOLOGY RESULTS Ventricular Rate 63 BPM RAD IOLOGY RESULTS Atrial Rate 63 BPM RADIOLOG Y RESULTS UT Interval 222 ms RADIOLOG Y RESULTS QRS Duration 102 ms RADIOLO GY RESULTS QT 448 ms RADIOLOGY RESULTS QTc 458 ms RADIOLOGY RESULTS P [place] 54 degrees RADIOLOGY RESULTS R AXIS -5 degrees RADIOLOGY RESULTS T [place] 24 degrees RADIOLOGY RESULTS Interpretation ECG Sinus rhythm with 1st degree A-V block Septal infarct , age undetermined Abnormal ECG When compared with ECG of 02-Mar-2024 14:00, Septal infarct is now Present No significant change was found Confirmed by - EMERGENCY ROOM, PHYSICIAN ([id number]), editor producer LIZANDRO ZABALA ([id number]) on 05/24/2024 6:44:53 AM RADIOLOGY RESULTS 05/23/2024 5:08 PM CDT 05/24/2024 6:44 AM CDT us Pan Michelle MD ECG ORDERABLES Edited Res ult - Final RADIOLOGY RESULTS * (ABNORMAL) INR (05/23/2024 3:42 PM CDT) INR 1.29(H) 0.85 - 1.15 05/23/2024 4:21 PM CDT LABORATORY Blood BLOOD SPECIMEN / Unknown Venipuncture / Unknown 05/23/2024 3:42 PM CDT 05/23/2024 3:45 PM CDT us Vi Coe DO LAB - BLOOD ORDERABLES F inal Result LABORATORY [facility] [address] [facility], no room number) [place] [address] * CT Abdomen Pelvis w Contrast (05/23/2024 2:19 PM CDT) Anatomical Region Laterality Modality Abdomen/Pelvis, SUBRAD CT YAIMA DY, UMP CT ABDOMEN PELVIS, RAD CT Computed Tomography Impressions 05/23/2024 2:43 PM CDT IMPRESSION: 1. 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 2. Other chronic findings as discussed above. Findings were discussed with Dr. Kenna Coe at 2:35 PM. MIKE LIPSCOMB MD SYSTEM ID: [id number] Narrative 05/23/2024 2:[address] ABDOMEN [...] veins which are not included in the [id number]. MUSCULOSKELETAL: Stable degenerative changes at L4-L5 with [...] veins which are not included in the [id number]. 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 No destructive lesions in the bones. IMPRESSION: 1. 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 2. Other chronic findings as discussed above. Findings were discussed with Dr. Kenna Coe at 2:35 PM. MIKE LIPSCOMB MD SYSTEM ID: [id number] Vi Coe DO IMG CT ORDERABLES Final Result * Adult Type and Screen (05/23/2024 2:07 PM CDT) ABO/RH(D) O POS 05/23/2024 1:37 PM CDT RH BLOOD BANK Antibody Screen Negative Negative 05/23/2024 1:37 PM CDT RH BLOOD BANK SPECIMEN EXPIRATION DATE [id number] 05/23/2024 1:37 PM CDT RH BLOOD BANK Blood BLOOD SPECIMEN / Unknown Venipuncture / Unknown 05/23/2024 2:07 PM CDT 05/23/2024 2:10 PM CDT Vi Coe DO LAB - BLOOD BANK TEST OR NORAH Final Result BLOOD BANK [address] [place] [address] [...] 1:50 PM CDT 05/23/2024 1:55 PM CDT us Vi Coe DO LAB - BLOOD ORDERABLES F inal Result RH LABORATORY [facility] Lab [address] Lab (1st floor, no room number) [place] [address] * Lactic acid whole blood (05/23/2024 1:50 PM CDT) Pathologist [facility] Lactic Acid 0.9 0.7 - 2.0 mmol/L 05/23/2024 1:57 PM CDT RH LABORATORY Blood BLOOD SPECIMEN / Unknown Venipuncture / Unknown 05/23/2024 1:50 PM CDT 05/23/2024 1:54 PM CDT Vi Coe DO LAB - BLOOD ORDERABLES F inal Result LABORATORY [facility] Lab [address] Lab (1st floor, no room number) [place] [address] * Blood Culture Peripheral Blood (05/23/2024 1:50 PM CDT) [facility] Culture No Growth 05/28/2024 4:06 PM CDT UU IDD LABORATORY Blood BLOOD SPECIMEN / Unknown Venipuncture / Unknown 05/23/2024 1:50 PM CDT 05/23/2024 1:53 PM CDT us Vi Coe DO LAB - MICRO GENERAL ORDE RABLES Final Result [facility] IDD LABORATORY [facility] Inf. Diseases Diag. Lab [address] [facility], [address] [place] [address] * (ABNORMAL) Comprehensive metabolic panel (05/23/2024 1:50 PM CDT) Pathologist [facility] Sodium 134(L) 135 - 145 mmol/L 05/23/2024 2:21 PM CDT LABORATORY Potassium 3.6 3.4 - 5.3 mmol/L 05/23/2024 2:21 PM CDT RH LABORATORY Carbon Dioxide (CO2) 29 22 - 29 mmol/L 05/23/2024 2:21 PM CDT LABORATORY Anion Gap 10 7 - [...] 1:50 PM CDT 05/23/2024 1:55 PM CDT us Vi Coe DO LAB - BLOOD ORDERABLES F inal Result LABORATORY [facility] Lab [address] Lab (1st floor, no room number) [place] [address], [facility] * (ABNORMAL) INR (05/23/2024 1:50 PM CDT) INR >10.00(HH) 0.85 - 1.15 05/23/2024 2:30 PM CDT RH LABORATORY Blood BLOOD SPECIMEN / Unknown Venipuncture / Unknown 05/23/2024 1:50 PM CDT 05/23/2024 1:55 PM CDT us Vi Coe DO LAB - BLOOD ORDERABLES F inal Result RH LABORATORY [facility] Lab [address] [facility] Lab (1st floor, no room number) [place] [address], [facility] documented in this [...] 1 dose, Indications: Skin and Soft Tissue InfectionIndications:Skin and Soft Tissue Infection $New Bag 05/23/2024 2:00 PM CDT 900 mg 100 m L/hr clindamycin (CLEOCIN) 900 mg in 50 mL D5W intermittent infusion Routine, 900 mg, Intravenous, EVERY 8 HOURS, First dose on Tue05/23/24 at 2200, Indications: Skin and Soft Tissue InfectionIndications:Skin and Soft Tissue Infection $New Bag 05/26/2024 5:27 AM CDT 900 mg 100 mL/hr $New Bag 05/25/2024 9:33 PM CDT 900 mg 100 mL/hr $New Bag 05/25/2024 1:59 PM CDT 900 mg 100 mL/hr dextrose 50 % injection 25-50 mL 25-50 mL, Intravenous, EVERY 15 MIN PRN, low blood sugar, Administer over 1-5 Minutes, Starting on Tue05/23/24 at 204, Use if have IV access, BG less [...] for injection., Indications: Skin and Soft Tissue InfectionIndications:Skin and Soft Tissue Infection $New Bag 05/23/2024 2:33 PM CDT 2.25 g piperacillin-tazobactam (ZOSYN) 2.25 g vial to attach to NS 100 ml bag Routine, 2.25 g, Intravenous, EVERY 8 HOURS, First dose on Tue05/23/24 at 2200, Dose adjusted per renal dosing policy. Estimated CrCl = 10-29 mL/min. Lactated Ringer's solution is not compatible with piperacillin-tazobactam for injection., Indications: Skin and Soft Tissue InfectionIndications:Skin and Soft Tissue Infection $New Bag 05/30/2024 [...] 2 hours., Indications: Skin and Soft Tissue InfectionIndications:Skin and Soft Tissue Infection $New Bag 05/25/2024 5:19 PM CDT 1,000 mg 200 mL/hr vancomycin (VANCOCIN) 1,750 mg in 0.9% NaCl 500 mL intermittent infusion Routine, 1,750 mg (rounded from 1,678 mg = 20 mg/kg 83.9 kg), Intravenous, ONCE, On Tue05/23/24 at 1400, For 1 dose, Infuse doses less than 1,250 mg over 1 hour. Infuse doses between 1,250 mg and less than 1,750 mg over 90 minutes. Infuse doses 1,750 mg and above over 2 hours., Indications: Skin and Soft Tissue InfectionIndications:Skin and Soft Tissue Infection $New Bag 05/23/2024 [...] 2.5 mg, Oral, ONCE AT 6PM, On 05/26/24 at 1800, For 1 dose $Given 05/26/2024 [...] dialysis., Dialysis 0932 ($Given - Provider: Abbie Ramirez, LINDA) epoetin mauricio-epbx (RETACRIT) injection 4,000 Units [...] Oral, EVERY MORNING, First dose on Padmaja 24 at 0900, Tablets can be crushed and [...] Edie Pack, LINDA)2132 ($Given - Provider: Kristin Lauren RN) 0648 [...] 2049 ($Given - Provider: Heidi Koo, LINDA) 2032 ($Given - Provider: Kristin Lauren, LINDA) [...] site for insertion. MAX Dose: 2.5 g ( of 5 g tube) Do NOT give [...] dormant line, Starting on Tue05/23/24 at 2047 1411 ($Given - Provi norah: Cecilia Crabtree [...] stools. documented in this encounter Care Teams Stone Breaker Relationship Specialty Start Date End Date Cornell Butt PCP - General 06/24/11 documented as of this encounter
--- OUTSIDE RECORDS SUMMARY | 2024-08-31 13:06 | XMS_ITS | Encounter Summary ---
Author Organization [facility] Address [address] [facility] [place] [address] Care Team Providers Care Environmental Emergencies Assistant Name Role Phone Preet Huff Hans Primary Care Provider [phone] Encounter Details Date Type Department Care Team (Late Contact Info) Description 02/08/2022 External Order Results [facility] [address] [place] [address] Outside, Provider Social History Tobacco Use Types Packs/Day Years Used Date Smoking Tobacco: Never Smokeless Tobacco: Never Alcohol Use Standard Drinks/Week Comments No 0 (1 standard drink = 0.6 oz pur e alcohol) PHQ-2 Answer Date Recorded PHQ-2 Score 0 10/18/2018 Sex and Gender Information Value Date Recorded Sex Assigned at Not on file 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 No / Unsure 02/11/2022 8:53 AM CDT documented as of this encounter Plan of Treatment Upcoming Encounters Date Type Department Care Team (Late st Contact Info) Description 09/27/2024 1:00 PM SHREDDING MACHINE TENDER Office Visit [facility] [address] [phone] Jaxon Saravia MD [address] [place] [id number] documented as of this encounter Procedures Procedure [...] CDT Verified by Eugene Rodriguez on 02/15/2022. us Provider Outside LABORATORY Edited Result - Final MARIA T PFT NON-INTERFACED (ONBASE SCANS) documented in this encounter Visit Diagnoses Not on filedocumented in this encounter Care Teams Environmental Emergencies Assistant Relationship Specialty Start Date End Date Preet Huff PCP - General 06/24/11 documented as of this encounter
--- OUTSIDE RECORDS SUMMARY | 2024-08-31 13:06 | XMS_ITS ---
Author Organization [facility] Address [address] [place] [address] Care Team Providers Care Grounds Person Name Role Phone Preet Huff Primary Care Provider [phone] Transitional Care Management Status:Closed (Closed) Start date:05/31/2024 Enrollment date:06/01/2024 End date:06/14/2024 Close reason:Goals met Continued Care and Services Coordination
--- OUTSIDE RECORDS SUMMARY | 2024-08-31 13:06 | XMS_ITS | Encounter Summary ---
Author Organization [facility] Address [address] [facility] [place] [address] Care Team Providers Care Overcaster Name Role Phone Preet Huff Primary Care Provider [phone] Jaxon Saravia MD Unavailable [phone] Encounter Details Date Type Department Care Team (Late Contact Info) Description 05/07/2013 Orders Only [facility] Interventional Radiology 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 [place] [phone] Jaxon Saravia MD [address] [place] [id number] documented as of this encounter Visit Diagnoses Not on filedocumented in this encounter Care Teams Overcaster Relationship Specialty Start Date End Date Preet Huff PCP - General 06/24/11 Jaxon Saravia MD [address] [place] [address] Assigned Heart and Vascular Provider 08/01/20 2 documented as of this encounter
--- OUTSIDE RECORDS SUMMARY | 2024-08-31 13:06 | XMS_ITS ---
Author Organization [facility] Address [address] [place] [address] Care Team Providers Care Hand Tool Filer Name Role Phone Preet Huff Primary Care Provider [phone] Transitional Care Management Status:Closed (Closed) Start date:08/27/2024 End date:08/27/2024 Continued Care and Services Coordination
--- OUTSIDE RECORDS SUMMARY | 2024-08-31 13:06 | XMS_ITS | Encounter Summary ---
Author Organization [facility] Address [address] 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 [phone] Jaxon Saravia MD [address] [place] [id number] documented as of this encounter Visit Diagnoses Not on filedocumented in this encounter Care Teams Clinical Education Academic Coordinator Relationship Specialty Start Date End Date Preet Huff PCP - General 06/24/11 documented as of this encounter
--- OUTSIDE RECORDS SUMMARY | 2024-08-31 13:06 | XMS_ITS | Encounter Summary ---
Author Organization [facility] Address [address] [facility] [place] [address] Care Team Providers Care Parish Nurse Name Role Phone HuffPreet cool Hans Primary Care Provider [phone] Jaxon Saravia MD Unavailable [phone] Encounter Details Date Type Department Care Team (Late st Contact Info) Description 10/20/2011 Hospital PHYS STANDARD [address] [phone] Wojciech Holman MD [facility] [address] [place] [id number] ESRD (end stage renal disease) on dialysis (H); Hyperkalemia Social History Tobacco Use Types Packs/Day Years Used Date Smoking Tobacco: Never Smokeless Tobacco: Never Alcohol Use Standard Drinks/Week Comments No 0 (1 standard drink = 0.6 oz pur e alcohol) Sex and Gender Information Value Date Recorded Sex Assigned at Not on file 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 [phone] Jaxon Saravia MD [address] [place] [address] documented as of this encounter Visit Diagnoses Diagnosis ESRD (end stage renal disease) on dialysis (H) End stage renal disease Hyperkalemia Hyperpotassemia documented in this encounter Care Teams Parish Nurse Relationship Specialty Start Date End Date Preet Huff PCP - General 06/24/11 Jaxon Saravia MD [address] [place] [address] Assigned Heart and Vascular Provider 08/01/20 12/06/20 documented as of this encounter
--- OUTSIDE RECORDS SUMMARY | 2024-08-31 13:06 | XMS_ITS | Encounter Summary ---
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 Family Comments: family updated by OBS brochure/video discussed/provided to patient: Yes ED Medications: Medications sodium chloride 0.9 % bag [address] scan flush use (100 mLs As instructed $Given 05/23/24 6325) HOLD: warfarin (COUMADIN) therapy (has no administration in time range) sodium chloride 0.9% BOLUS 1,000 mL (0 mLs Intravenous Stopped 05/23/24 7521) clindamycin (CLEOCIN) 900 mg in 50 mL [...] Illness Chief Complaint Penis/Scrotum Problem HPI Herminio Ramon Kayleigh is a 59 year old male on [...] POS Antibody Screen Negative SPECIMEN EXPIRATION DATE [id number] BLOOD CULTURE ABO/RH TYPE AND SCREEN Imaging CT Abdomen Pelvis w Contrast Final Result IMPRESSION: 1. 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 2. Other chronic findings as discussed above. Findings were discussed with Dr. Kenna Coe at 2:35 PM. MIKE LIPSCOMB MD SYSTEM ID: [id number] Independent Interpretation None ED Course Medications Administered [...] care. [address] [facility] 1626 Arianna Goodman (Mother) [phone] (Home Phone) Updated mom Additional Documentation None [...] provider's statements to me. Vi Hernandez DO 05/23/24 192 * Lesley Avalos RN - 05/23/2024 1:14 PM CDT Bed: 27 Expected date: 05/23/24 Expected time: Means of arrival: Ambulance Comments: Gentry 332 documented in this encounter Miscellaneous Notes * Plan of Care - Rand Ochoa OTR - 05/30/2024 5:21 PM CDT Occupational Therapy Discharge Summary Reason for therapy discharge: Discharged to home with home therapy. Progress towards therapy goal(s). See goals on Care Plan in [facility] electronic health record for goal details. Goals partially met. Barriers to achieving goals: discharge from facility. Therapy recommendation(s): Continued therapy is recommended. Rationale/Recommendations: Patient appears safe and able todischarge home with intermittent assist from family with higher level IADLS (just like baseline). [facility] ADL tolerance. Pt not seen by brief writer on this date, note written based on previous treating OT's note and recommendations. * Plan of Care - Joann Marinelli PT - 05/30/2024 5:21 PM CDT Physical Therapy Discharge Summary Reason for therapy discharge: Discharged to home with home therapy. Progress towards therapy goal(s). See goals on Care Plan in [facility] electronic health record for goal details. Goals not met. Barriers to achieving goals: discharge from facility. Therapy recommendation(s): Continued therapy is recommended. Rationale/Recommendations: Rec home with assist for safe mobilityand HHPT to progress strength and IND mobility. * Pharmacy-Anticoagulation Service - Joni Steel [facility] - 05/30/2024 3:00 PM CDT Images from the original note were not included. 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 Pertinent assessments: Assumed cares @ [phone].Disoriented to situation and time. VSS on RA. [...] Moisture Management Recent Flowsheet Documentation Taken 05/27/2024 1936 by Kristin Lauren RN Moisture Interventions: Encourage regular toileting Bathing/Skin Care: moisturizer applied Taken 05/27/20241808 by Kristin Lauren RN Moisture Interventions: Encourage regular toileting Intervention: Optimize Skin Protection Recent Flowsheet Documentation Taken 05/27/2024 1936 by Kristin Lauren RN Activity Management: activity [...] Intervention: Prevent Infection Recent Flowsheet Documentation Taken 05/27/2024 09 by Edie Pack RN Infection Prevention: single patient room provided rest/sleep promoted hand hygiene promoted Goal: Optimal Comfort and Wellbeing Outcome: Progressing Intervention: Monitor Pain and Promote Comfort Recent Flowsheet Documentation Taken 05/27/2024919 by Edie Pack RNjewel bearing grinder Interventions: declines Goal: Readiness for Transition of [...] documentation flowsheets. Pertinent assessments: Assumed cares @ [phone].Disoriented to time and situation. VSS on RA. [...] your shift note. Outcome: Progressing Flowsheets (Taken 05/26/20242240) Outcome Evaluation: IV zosyn. Denies pain. Tolerating [...] bedrest * Pharmacy-Anticoagulation Service - Luis Collado [facility] - 05/26/2024 4:50 PM CDT Clinical Pharmacy - Warfarin Dosing Consult Pharmacy has been consulted to manage this patient???s warfarin therapy. Indication: DVT/PE Prophylaxis Therapy Goal: INR 2-3 Warfarin Prior to Admission: Yes Warfarin POLE SHAVER HELPER Regimen: 5 mg M-F and No dose [...] (Venous Thromboembolism) Risk Recent Flowsheet Documentation Taken 05/25/20241720 by Chris Mcduffie RN VTE Prevention/Management: SCDs [...] * Pharmacy-Vancomycin Dosing Service - Chucho Zuluaga [facility] - 05/25/2024 3:31 PM CDT [...] shift note. Outcome: Progressing Flowsheets (Taken 05/24/2024 2214) Outcome Evaluation: Scrotal dressing changed twice. Did [...] member and Thelma (aunt) via phone and [phone] Pertinent Information: outside meds--none added Changes made to POLE SHAVER HELPER medication list: Added: none Deleted: norvasc, lipitor, Changed: protonix Allergies reviewed with patient and updates made in EHR: yes Medication History Completed By: Graham Joseph RPH 05/23/2024 9:51 PM POLE SHAVER HELPER Med List Medication Sig Last Dose B Fqktwfs-J-Xtsmy Acid (WESCAPS PO) Take 1 capsule by [...] subsequent weeks. John Rosado RPH * Op Elisa - Lizandro Barron MD - 05/23/2024 6:36 [...] and procedure to be performed. A 16 Pakistani coud?? catheter was placed through the urethra, [...] stable condition. Lizandro Barron MD Urology [facility] documented in this encounter Plan of Treatment Upcoming Encounters Date Type Department Care Team (Late st Contact Info) Description 09/27/2024 1:00 PM CODE AND TEST CLERK Office Visit [facility] Evelio [address] [place] [phone] Jaxon Buenrostro MD [address] [place] [address] Scheduled Referrals Name Type Priority Associated Diagnoses [...] DEAN - BEAKER POCT Final Resul t RH LABORATORY [facility] Acute Care Lab [address] [facility] Lab (1st floor, no room number) [place] [address], [facility] * Glucose by meter (05/30/2024 7:13 AM CDT) GLUCOSE BY METER POCT 82 70 - 99 mg/dL 05/30/2024 7:19 AM CDT RH LABORATORY POC Blood, Capillary BLOOD SPECIMEN / Unknown 05/30/2024 7:13 AM CDT 05/30/2024 7:19 AM CDT Antonino Cheek MD LAB - BEAKER POCT Final Resul t LABORATORY [facility] [address] Lab (1st floor, no room number) [place] [address] * (ABNORMAL) INR (05/30/2024 6:54 AM CDT) INR 2.26(H) 0.85 - 1.15 05/30/2024 7:20 AM CDT LABORATORY Blood STRUCTURE OF RIGHT HAND / Unknown Venipuncture / Unknown 05/30/2024 6:54 AM CDT 05/30/2024 7:06 AM CDT Antonino Cheek MD LAB - BLOOD ORDERABLES Final Result LABORATORY [facility] Care Lab [address] Lab (1st floor, no room number) [place] [address] * (ABNORMAL) Basic metabolic panel [...] - BLOOD ORDERABLES Final Result RH LABORATORY [facility] Acute Care Lab [address] Lab (1st floor, no room number) [place] [address] * (ABNORMAL) CBC with platelets [...] LAB - BLOOD ORDERABLES Final Result LABORATORY [facility] Lab [address] Lab (1st floor, no room number) [address] [place] [address] * (ABNORMAL) Glucose by meter (05/30/2024 2:18 AM CDT) GLUCOSE BY METER POCT 138(H) 70 - 99 mg/dL 05/30/2024 2:24 AM CDT LABORATORY POC Blood, Capillary BLOOD SPECIMEN / Unknown 05/30/2024 2:18 AM CDT 05/30/2024 2:24 AM CDT us Antonino Cheek MD LAB - BEAKER POCT Final Resul t LABORATORY [facility] Lab [address] Lab (1st floor, no room number) [place] [id number] * (ABNORMAL) Glucose by meter (05/29/2024 9:28 PM CDT) GLUCOSE BY METER POCT 160(H) 70 - 99 mg/dL 05/29/2024 9:35 PM CDT LABORATORY POC Blood, Capillary BLOOD SPECIMEN / Unknown 05/29/2024 9:28 PM CDT 05/29/2024 9:35 PM CDT Antonino Cheek MD LAB - BEAKER POCT Final Resul t LABORATORY [facility] Lab [address] Lab (1st floor, no room number) [address] * (ABNORMAL) Glucose by meter (05/29/2024 5:54 PM CDT) GLUCOSE BY METER POCT 159(H) 70 - 99 mg/dL 05/29/2024 6:01 PM CDT RH LABORATORY POC Blood, Capillary BLOOD SPECIMEN / Unknown 05/29/2024 5:54 PM CDT 05/29/2024 6:01 PM CDT us Antonino Cheek MD LAB - BEAKER POCT Final Resul t Performing Organization Address [facility]/ZIP Co de Phone Number LABORATORY [facility] Lab [address] Lab (1st floor, no room number) [address] * (ABNORMAL) Glucose by meter (05/29/2024 1:41 PM CDT) GLUCOSE BY METER POCT 158(H) 70 - 99 mg/dL 05/29/2024 1:48 PM CDT LABORATORY POC Blood, Capillary BLOOD SPECIMEN / Unknown 05/29/2024 1:41 PM CDT 05/29/2024 1:48 PM CDT Antonino Cheek MD LAB - BEAKER POCT Final Resul t LABORATORY [facility] Lab [address] Lab (1st floor, no room number) [address] * Glucose by meter (05/29/2024 7:54 AM CDT) GLUCOSE BY METER POCT 90 70 - 99 mg/dL 05/29/2024 8:01 AM CDT RH LABORATORY POC Blood, Capillary BLOOD SPECIMEN / Unknown 05/29/2024 7:54 AM CDT 05/29/2024 8:01 AM CDT Antonino Cheek MD LAB - BEAKER POCT Final Resul t LABORATORY POC [facility] Care Lab [address] Lab (1st floor, no room number) [place] [address] * (ABNORMAL) INR (05/29/2024 6:22 AM CDT) INR 1.92(H) 0.85 - 1.15 05/29/2024 6:52 AM CDT LABORATORY Blood STRUCTURE OF RIGHT HAND / Unknown Venipuncture / Unknown 05/29/2024 6:22 AM CDT 05/29/2024 6:40 AM CDT Antonino Cheek MD LAB - BLOOD ORDERABLES Final Result LABORATORY [facility] Care Lab [address] Lab (1st floor, no room number) [place] [id number] * (ABNORMAL) Basic metabolic panel (05/29/2024 [...] - BLOOD ORDERABLES Final Result RH LABORATORY [facility] Acute Care Lab [address] [facility] Lab (1st floor, no room number) [place] [address] * (ABNORMAL) CBC with platelets [...] LAB - BLOOD ORDERABLES Final Result LABORATORY [facility] Lab [address] Lab (1st floor, no room number) [address] [place] [address] * (ABNORMAL) Glucose by meter (05/29/2024 2:26 AM CDT) GLUCOSE BY METER POCT 103(H) 70 - 99 mg/dL 05/29/2024 2:33 AM CDT LABORATORY POC Blood, Capillary BLOOD SPECIMEN / Unknown 05/29/2024 2:26 AM CDT 05/29/2024 2:33 AM CDT us Antonino Cheek MD LAB - BEAKER POCT Final Resul t LABORATORY [facility] Lab [address] Lab (1st floor, no room number) [place] [id number] * (ABNORMAL) Glucose by meter (05/28/2024 9:50 PM CDT) GLUCOSE BY METER POCT 102(H) 70 - 99 mg/dL 05/28/2024 9:56 PM CDT RH LABORATORY POC Blood, Capillary BLOOD SPECIMEN / Unknown 05/28/2024 9:50 PM CDT 05/28/2024 9:56 PM CDT Antonino Cheek MD LAB - BEAKER POCT Final Resul t LABORATORY [facility] Lab [address] Lab (1st floor, no room number) [place] [id number] [place] [address] * (ABNORMAL) Glucose by meter (05/28/2024 5:08 PM CDT) GLUCOSE BY METER POCT 254(H) 70 - 99 mg/dL 05/28/2024 5:16 PM CDT LABORATORY POC Blood, Capillary BLOOD SPECIMEN / Unknown 05/28/2024 5:08 PM CDT 05/28/2024 5:16 PM CDT Antonino Cheek MD LAB - BEXIANG POCT Final Resul t Performing Organization Address [facility]/ZIP Co de Phone Number LABORATORY [facility] Lab [address] Lab (1st floor, no room number) [place] [address], [facility] * Glucose by meter (05/28/2024 1:58 PM CDT) GLUCOSE BY METER POCT 91 70 - 99 mg/dL 05/28/2024 2:05 PM CDT LABORATORY POC Blood, Capillary BLOOD SPECIMEN / Unknown 05/28/2024 1:58 PM CDT 05/28/2024 2:05 PM CDT Antonino Cheek MD LAB - BEAKER POCT Final Resul t LABORATORY [facility] Lab [address] Lab (1st floor, no room number) [place] [id number], [facility] * (ABNORMAL) Glucose by meter (05/28/2024 7:48 AM CDT) GLUCOSE BY METER POCT 128(H) 70 - 99 mg/dL 05/28/2024 7:54 AM CDT RH LABORATORY POC Blood, Capillary BLOOD SPECIMEN / Unknown 05/28/2024 7:48 AM CDT 05/28/2024 7:54 AM CDT us Antonino Cheek MD LAB - BEAKER POCT Final Resul t LABORATORY POC [facility] Care Lab [address] Lab (1st floor, no room number) [address] [place] [address] * Extra Purple Top EDTA (LAB USE ONLY) (05/28/2024 6:07 AM CDT) Hold Specimen [facility] 05/28/2024 7:32 AM CDT RH LABORATORY Blood STRUCTURE OF LEFT HAND / Unknown Venipuncture / Unknown 05/28/2024 6:07 AM CDT 05/28/2024 6:17 AM CDT us Antonino Cheek MD LAB - BLOOD ORDERABLES Final Result [facility] Lab [address] Lab (1st floor, no room number) [place] [phone] [place] [address] * Extra Green Top Tube (LAB USE ONLY) (05/28/2024 6:07 AM CDT) Hold Specimen [facility] 05/28/2024 7:32 AM CDT RH LABORATORY Blood STRUCTURE OF LEFT HAND / Unknown Venipuncture / Unknown 05/28/2024 6:07 AM CDT 05/28/2024 6:17 AM CDT us Antonino Cheek MD LAB - BLOOD ORDERABLES Final Result [facility] Lab [address] Lab (1st floor, no room number) [address] [place] [address] * (ABNORMAL) INR (05/28/2024 6:07 AM CDT) INR 1.87(H) 0.85 - 1.15 05/28/2024 6:27 AM CDT LABORATORY Blood STRUCTURE OF LEFT HAND / Unknown Venipuncture / Unknown 05/28/2024 6:07 AM CDT 05/28/2024 6:17 AM CDT us Antonino Cheek MD LAB - BLOOD ORDERABLES Final Result LABORATORY [facility] Care Lab [address] Lab (1st floor, no room number) [place] [id number] * (ABNORMAL) Hemoglobin (05/28/2024 6:07 AM CDT) Hemoglobin 7.7(L) 13.3 - 17.7 g/dL 05/28/2024 9:02 AM CDT LABORATORY Blood STRUCTURE OF LEFT HAND / Unknown Venipuncture / Unknown 05/28/2024 6:07 AM CDT 05/28/2024 6:17 AM CDT Dileep Anders MD LAB - BLOOD ORDERABLES Final Result LABORATORY [facility] Care Lab [address] Lab (1st floor, no room number) [place] [address] * (ABNORMAL) Basic metabolic panel (05/28/2024 [...] - 15 mmol/L 05/28/2024 9:03 AM CDT RH LABORATORY Urea Nitrogen 50.8(H) 8.0 - 23.0 mg/dL 05/28/2024 9:03 AM CDT RH LABORATORY Creatinine 9.64(H) 0.67 - 1.17 mg/dL 05/28/2024 9:03 AM CDT RH LABORATORY GFR Estimate 6(L) >60 mL/min/1.7 3m2 05/28/2024 9:03 AM CDT RH LABORATORY Comment:eGFR calculated usin [...] BLOOD ORDERABLES Final Result Performing Organization Address City/State/[place] Co de Phone Number LABORATORY [facility] Care Lab [address] Lab (1st floor, no room number) [place] [address], [facility] * (ABNORMAL) Glucose by meter (05/28/2024 2:19 AM CDT) [facility] GLUCOSE BY METER POCT 102(H) 70 - 99 mg/dL 05/28/2024 2:26 AM CDT LABORATORY POC Blood, Capillary BLOOD SPECIMEN / Unknown 05/28/2024 2:19 AM CDT 05/28/2024 2:26 AM CDT Antonino Cheek MD LAB - BEAKER POCT Final Resul t LABORATORY [facility] Lab [address] Lab (1st floor, no room number) [place] [id number] [place] [address] * (ABNORMAL) Glucose by meter (05/27/2024 9:05 PM CDT) GLUCOSE BY METER POCT 148(H) 70 - 99 mg/dL 05/27/2024 9:13 PM CDT RH LABORATORY POC Blood, Capillary BLOOD SPECIMEN / Unknown 05/27/2024 9:05 PM CDT 05/27/2024 9:13 PM CDT us Antonino Cheek MD LAB - BEAKER POCT Final Resul t Performing Organization Address City/[facility]/ZIP Co de Phone Number LABORATORY [facility] Lab [address] Lab (1st floor, no room number) [address] [place] [address] * (ABNORMAL) Glucose by meter (05/27/2024 5:11 PM CDT) GLUCOSE BY METER POCT 148(H) 70 - 99 mg/dL 05/27/2024 5:20 PM CDT RH LABORATORY POC Blood, Capillary BLOOD SPECIMEN / Unknown 05/27/2024 5:11 PM CDT 05/27/2024 5:20 PM CDT us Antonino Cheek MD LAB - BEAKER POCT Final Resul t LABORATORY [facility] Lab [address] Lab (1st floor, no room number) [place] [id number] [place] [address] * (ABNORMAL) Glucose by meter (05/27/2024 11:42 AM CDT) GLUCOSE BY METER POCT 149(H) 70 - 99 mg/dL 05/27/2024 11:49 AM CDT RH LABORATORY POC Blood, Capillary BLOOD SPECIMEN / Unknown 05/27/2024 11:42 AM CDT 05/27/2024 11:49 AM CDT Antonino Cheek MD LAB - BEAKER POCT Final Resul t Performing Organization Address [facility]/ZIP Co de Phone Number LABORATORY [facility] Lab [address] Lab (1st floor, no room number) [place] [phone] [place] [address] * (ABNORMAL) Glucose by meter (05/27/2024 7:44 AM CDT) GLUCOSE BY METER POCT 108(H) 70 - 99 mg/dL 05/27/2024 7:51 AM CDT LABORATORY POC Blood, Capillary BLOOD SPECIMEN / Unknown 05/27/2024 7:44 AM CDT 05/27/2024 7:51 AM CDT us Antonino DEAN - BEAKER POCT Final Resul t Performing Organization Address [facility]/[place] Co de Phone Number LABORATORY [facility] Lab [address] Lab (1st floor, no room number) [place] [id number], [facility] * (ABNORMAL) INR (05/27/2024 7:03 AM CDT) INR 1.81(H) 0.85 - 1.15 05/27/2024 7:17 AM CDT LABORATORY Blood STRUCTURE OF RIGHT HAND / Unknown Venipuncture / Unknown 05/27/2024 7:03 AM CDT 05/27/2024 7:07 AM CDT us Antonino Cheek MD LAB - BLOOD ORDERABLES Final Result Performing Organization Address City/[facility]/ZIP Co de Phone Number [facility] Lab [address] Lab (1st floor, no room number) [place] [id number], [facility] * (ABNORMAL) Glucose by meter (05/27/2024 2:03 AM CDT) GLUCOSE BY METER POCT 157(H) 70 - 99 mg/dL 05/27/2024 2:10 AM CDT LABORATORY POC Blood, Capillary BLOOD SPECIMEN / Unknown 05/27/2024 2:03 AM CDT 05/27/2024 2:10 AM CDT Antonino Cheek MD LAB - BEAKER POCT Final Resul t LABORATORY [facility] Acute Care Lab [address] Lab (1st floor, no room number) [place] [address], [facility] * (ABNORMAL) Glucose by meter (05/26/2024 9:29 PM CDT) GLUCOSE BY METER POCT 155(H) 70 - 99 mg/dL 05/26/2024 9:37 PM CDT LABORATORY POC Blood, Capillary BLOOD SPECIMEN / Unknown 05/26/2024 9:29 PM CDT 05/26/2024 9:37 PM CDT Antonino Cheek MD LAB - BEAKER POCT Final Resul t Performing Organization Address [facility]/ZIP Co de Phone Number LABORATORY [facility] Lab [address] Lab (1st floor, no room number) [place] [address], [facility] * (ABNORMAL) Glucose by meter (05/26/2024 4:10 PM CDT) GLUCOSE BY METER POCT 174(H) 70 - 99 mg/dL 05/26/2024 4:19 PM CDT LABORATORY POC Blood, Capillary BLOOD SPECIMEN / Unknown 05/26/2024 4:10 PM CDT 05/26/2024 4:19 PM CDT us Antonino Cheek MD LAB - BEAKER POCT Final Resul t LABORATORY [facility] Acute Care Lab [address] Lab (1st floor, no room number) [place] [id number] * (ABNORMAL) INR (05/26/2024 4:09 PM CDT) INR 1.67(H) 0.85 - 1.15 05/26/2024 4:28 PM CDT RH LABORATORY Blood STRUCTURE OF LEFT UPPER LIMB / Unknown Venipuncture / Unknown 05/26/2024 4:09 PM CDT 05/26/2024 4:15 PM CDT Antonino Cheek MD LAB - BLOOD ORDERABLES Final Result [facility] Lab [address] Lab (1st floor, no room number) [place] [id number] * (ABNORMAL) Glucose by meter (05/26/2024 11:37 AM CDT) GLUCOSE BY METER POCT 197(H) 70 - 99 mg/dL 05/26/2024 11:44 AM CDT LABORATORY POC Blood, Capillary BLOOD SPECIMEN / Unknown 05/26/2024 11:37 AM CDT 05/26/2024 11:44 AM CDT Antonino Cheek MD LAB - BEAKER POCT Final Resul t LABORATORY [facility] Lab [address] Lab (1st floor, no room number) [place] [id number] * Glucose by meter (05/26/2024 8:22 AM CDT) GLUCOSE BY METER POCT 85 70 - 99 mg/dL 05/26/2024 8:29 AM CDT LABORATORY POC Blood, Capillary BLOOD SPECIMEN / Unknown 05/26/2024 8:22 AM CDT 05/26/2024 8:29 AM CDT us Antonino Cheek MD LAB - BEAKER POCT Final Resul t RH LABORATORY [facility] Acute Care Lab [address] Lab (1st floor, no room number) [place] [address], [facility] * (ABNORMAL) CBC with [...] LAB - BLOOD ORDERABLES Final Result LABORATORY [facility] Acute Care Lab [address] [facility] Lab (1st floor, no room number) [place] [address], [facility] * (ABNORMAL) Basic metabolic [...] LAB - BLOOD ORDERABLES Final Result LABORATORY [facility] Lab [address] Lab (1st floor, no room number) [place] [address] * (ABNORMAL) Glucose by meter (05/26/2024 1:57 AM CDT) [facility] GLUCOSE BY METER POCT 123(H) 70 - 99 mg/dL 05/26/2024 2:04 AM CDT LABORATORY POC Blood, Capillary BLOOD SPECIMEN / Unknown 05/26/2024 1:57 AM CDT 05/26/2024 2:04 AM CDT Antonino Cheek MD LAB - BEAKER POCT Final Resul t LABORATORY POC [facility] Acute Care Lab [address] Lab (1st floor, no room number) [address] * (ABNORMAL) Glucose by meter (05/25/2024 9:32 PM CDT) GLUCOSE BY METER POCT 155(H) 70 - 99 mg/dL 05/25/2024 9:39 PM CDT LABORATORY POC Blood, Capillary BLOOD SPECIMEN / Unknown 05/25/2024 9:32 PM CDT 05/25/2024 9:39 PM CDT us Antonino Cheek MD LAB - BEAKER POCT Final Resul t LABORATORY [facility] Lab [address] Lab (1st floor, no room number) [address] * (ABNORMAL) Glucose by meter (05/25/2024 7:06 PM CDT) GLUCOSE BY METER POCT 183(H) 70 - 99 mg/dL 05/25/2024 7:14 PM CDT LABORATORY POC Blood, Capillary BLOOD SPECIMEN / Unknown 05/25/2024 7:06 PM CDT 05/25/2024 7:14 PM CDT us Antonino Cheek MD LAB - BEAKER POCT Final Resul t LABORATORY [facility] Lab [address] Lab (1st floor, no room number) [address] * (ABNORMAL) Glucose by meter (05/25/2024 5:29 PM CDT) GLUCOSE BY METER POCT 142(H) 70 - 99 mg/dL 05/25/2024 5:36 PM CDT LABORATORY POC Blood, Capillary BLOOD SPECIMEN / Unknown 05/25/2024 5:29 PM CDT 05/25/2024 5:36 PM CDT us Antonino Cheek MD LAB - BEAKER POCT Final Resul t LABORATORY [facility] Lab [address] Lab (1st floor, no room number) [place] [id number] [place] [address] * Vancomycin level (05/25/2024 2:04 PM CDT) Vancomycin 11.9 ug/mL 05/25/2024 3:28 PM CDT LABORATORY Comment: Traditional Dosing Therapeutic Range: Trough 10-15 ug/mL Peak 20-40 ug/mL Critical: Greater than 25.0 ug/mL Blood STRUCTURE OF RIGHT UPPER LIMB / Unknown Venipuncture / Unknown 05/25/2024 2:04 PM CDT 05/25/2024 2:07 PM CDT Antonino Cheek MD LAB - BLOOD ORDERABLES Final Result Performing Organization Address [facility]/ZIP Co de Phone Number [facility] Lab [address] Lab (1st floor, no room number) [place] [id number] * Extra Purple Top EDTA (LAB USE ONLY) (05/25/2024 2:04 PM CDT) Hold Specimen [facility] 05/25/2024 3:17 PM CDT LABORATORY Blood STRUCTURE OF RIGHT UPPER LIMB / Unknown Venipuncture / Unknown 05/25/2024 2:04 PM CDT 05/25/2024 2:07 PM CDT Atnonino Cheek MD LAB - BLOOD ORDERABLES Final Result [facility] [address] Lab (1st floor, no room number) [place] [phone] * Extra Green Top Tube (LAB USE ONLY) (05/25/2024 2:04 PM CDT) Hold Specimen [facility] 05/25/2024 3:17 PM CDT LABORATORY Blood STRUCTURE OF RIGHT UPPER LIMB / Unknown Venipuncture / Unknown 05/25/2024 2:04 PM CDT 05/25/2024 2:07 PM CDT Antonino Cheek MD LAB - BLOOD ORDERABLES Final Result LABORATORY [facility] [address] Lab (1st floor, no room number) [place] [address] * Glucose by meter (05/25/2024 2:01 PM CDT) GLUCOSE BY METER POCT 70 70 - 99 mg/dL 05/25/2024 2:08 PM CDT LABORATORY POC Blood, Capillary BLOOD SPECIMEN / Unknown 05/25/2024 2:01 PM CDT 05/25/2024 2:08 PM CDT Antonino Cheek MD LAB - BEAKER POCT Final Resul t LABORATORY POC [facility] Lab [address] Lab (1st floor, no room number) [place] [address] * Hepatitis B surface antigen (05/25/2024 9:25 AM CDT) Hepatitis B Surface Antigen Nonreactive Nonreactive 05/25/2024 2:23 PM CDT U LABORATORY Blood BLOOD SPECIMEN / Unknown Venipuncture / Unknown 05/25/2024 9:25 AM CDT 05/25/2024 10:13 AM CDT Jose Enrique Naylor MD LAB - BLOOD ORDERABLES Final Res ult UU LABORATORY [facility] [address] [facility], [address] [place] [address], [facility] * Hepatitis B Surface Antibody [...] BLOOD ORDERABLES Final Res ult U LABORATORY [facility] [address] [facility] [address], [address] [place] [address] * Glucose by meter (05/25/2024 5:35 AM CDT) GLUCOSE BY METER POCT 86 70 - 99 mg/dL 05/25/2024 5:42 AM CDT LABORATORY POC Blood, Capillary BLOOD SPECIMEN / Unknown 05/25/2024 5:35 AM CDT 05/25/2024 5:42 AM CDT us Antonino Cheek MD LAB - BEAKER POCT Final Resul t LABORATORY [facility] Lab [address] [facility] Lab (1st floor, no room number) [place] [address] * Glucose by meter (05/25/2024 2:01 AM CDT) GLUCOSE BY METER POCT 86 70 - 99 mg/dL 05/25/2024 2:08 AM CDT LABORATORY POC Blood, Capillary BLOOD SPECIMEN / Unknown 05/25/2024 2:01 AM CDT 05/25/2024 2:08 AM CDT us Antonino DEAN - BEAKER POCT Final Resul t LABORATORY [facility] Lab [address] Lab (1st floor, no room number) [place] [address], [facility] * Glucose by meter (05/24/2024 8:52 PM CDT) GLUCOSE BY METER POCT 96 70 - 99 mg/dL 05/24/2024 8:59 PM CDT LABORATORY POC Blood, Capillary BLOOD SPECIMEN / Unknown 05/24/2024 8:52 PM CDT 05/24/2024 8:59 PM CDT us Antonino DEAN - BEXIANG POCT Final Resul t LABORATORY [facility] Lab [address] Lab (1st floor, no room number) [place] [address], [facility] * Glucose by meter (05/24/2024 5:05 PM CDT) GLUCOSE BY METER POCT 84 70 - 99 mg/dL 05/24/2024 5:32 PM CDT LABORATORY POC Blood, Capillary BLOOD SPECIMEN / Unknown 05/24/2024 5:05 PM CDT 05/24/2024 5:32 PM CDT us Antonino DEAN - BEXIANG POCT Final Resul t LABORATORY [facility] Lab [address] Lab (1st floor, no room number) [place] [address], [facility] * (ABNORMAL) INR (05/24/2024 2:16 PM CDT) INR 1.16(H) 0.85 - 1.15 05/24/2024 2:34 PM CDT RH LABORATORY Blood BLOOD SPECIMEN / Unknown Venipuncture / Unknown 05/24/2024 2:16 PM CDT 05/24/2024 2:21 PM CDT us Lizandro Barron MD LAB - BLOOD ORDERABLES Final Re sult [facility] Lab [address] Lab (1st floor, no room number) [address] [place] [address] * Glucose by meter (05/24/2024 12:20 PM CDT) GLUCOSE BY METER POCT 75 70 - 99 mg/dL 05/24/2024 12:26 PM CDT LABORATORY POC Blood, Capillary BLOOD SPECIMEN / Unknown 05/24/2024 12:20 PM CDT 05/24/2024 12:26 PM CDT us Antonino DEAN - BEAKER POCT Final Resul t Performing Organization Address [facility]/ZIP Co de Phone Number [facility] Lab [address] Lab (1st floor, no room number) [place] [phone] * Glucose by meter (05/24/2024 9:12 AM CDT) GLUCOSE BY METER POCT 86 70 - 99 mg/dL 05/24/2024 9:19 AM CDT LABORATORY POC Blood, Capillary BLOOD SPECIMEN / Unknown 05/24/2024 9:12 AM CDT 05/24/2024 9:19 AM CDT us Antonino Cheek MD LAB - BEAKER POCT Final Resul t Performing Organization Address City/[facility]/ZIP Co de Phone Number LABORATORY [facility] Lab [address] Lab (1st floor, no room number) [place] [address], [facility] * (ABNORMAL) CBC with [...] LAB - BLOOD ORDERABLES Final Result LABORATORY [facility] Lab [address] Lab (1st floor, no room number) [place] [address], [facility] * (ABNORMAL) Comprehensive metabolic panel [...] - BLOOD ORDERABLES Final Result RH LABORATORY [facility] Lab [address] Lab (1st floor, no room number) [place] [address], [facility] * INR (05/24/2024 6:09 AM CDT) INR 1.14 0.85 - 1.15 05/24/2024 6:27 AM CDT RH LABORATORY Blood STRUCTURE OF LEFT HAND / Unknown Venipuncture / Unknown 05/24/2024 6:09 AM CDT 05/24/2024 6:14 AM CDT Lizandro Barron MD LAB - BLOOD ORDERABLES Final Re sult LABORATORY [facility] [address] Lab (1st floor, no room number) [place] [address], [facility] * (ABNORMAL) Glucose by meter (05/24/2024 4:49 AM CDT) GLUCOSE BY METER POCT 119(H) 70 - 99 mg/dL 05/24/2024 4:56 AM CDT LABORATORY POC Blood, Capillary BLOOD SPECIMEN / Unknown 05/24/2024 4:49 AM CDT 05/24/2024 4:56 AM CDT us Antonino DEAN - BEAKER POCT Final Resul t Performing Organization Address [facility]/ZIP Co de Phone Number LABORATORY [facility] Lab [address] Lab (1st floor, no room number) [place] [address], [facility] * (ABNORMAL) Glucose by meter (05/24/2024 1:13 AM CDT) GLUCOSE BY METER POCT 100(H) 70 - 99 mg/dL 05/24/2024 1:20 AM CDT LABORATORY POC Blood, Capillary BLOOD SPECIMEN / Unknown 05/24/2024 1:13 AM CDT 05/24/2024 1:20 AM CDT Antonino Cheek MD LAB - BEAKER POCT Final Resul t LABORATORY [facility] Lab [address] Lab (1st floor, no room number) [place] [address], [facility] * INR (05/23/2024 10:19 PM CDT) INR 1.04 0.85 - 1.15 05/23/2024 10:43 PM CDT LABORATORY Blood STRUCTURE OF LEFT UPPER LIMB / Unknown Venipuncture / Unknown 05/23/2024 10:19 PM CDT 05/23/2024 10:26 PM CDT us Lizandro Barron MD LAB - BLOOD ORDERABLES Final Re sult LABORATORY [facility] Lab [address] Lab (1st floor, no room number) [address] [place] [address] * Glucose by meter (05/23/2024 9:58 PM CDT) GLUCOSE BY METER POCT 83 70 - 99 mg/dL 05/23/2024 10:04 PM CDT LABORATORY POC Blood, Capillary BLOOD SPECIMEN / Unknown 05/23/2024 9:58 PM CDT 05/23/2024 10:04 PM CDT us Antonino DEAN - BEAKER POCT Final Resul t Performing Organization Address [facility]/ZIP Co de Phone Number LABORATORY [facility] Lab [address] Lab (1st floor, no room number) [address] * (ABNORMAL) Glucose by meter (05/23/2024 9:06 PM CDT) GLUCOSE BY METER POCT 47(LL) 70 - 99 mg/dL 05/23/2024 9:13 PM CDT LABORATORY POC Comment:Dr/RN Notified Blood, Capillary BLOOD SPECIMEN / Unknown 05/23/2024 9:06 PM CDT 05/23/2024 9:13 PM CDT Antonino Cheek MD LAB - BEAKER POCT Final Resul t LABORATORY [facility] [address] Lab (1st floor, no room number) [place] [phone], [facility] * Glucose by meter (05/23/2024 8:41 PM CDT) GLUCOSE BY METER POCT 78 70 - 99 mg/dL 05/23/2024 8:48 PM CDT LABORATORY POC Blood, Capillary BLOOD SPECIMEN / Unknown 05/23/2024 8:41 PM CDT 05/23/2024 8:48 PM CDT us Antonino Cheek MD LAB - BEAKER POCT Final Resul t LABORATORY [facility] Lab [address] Lab (1st floor, no room number) [place] [phone], [facility] * (ABNORMAL) Glucose by meter (05/23/2024 7:55 PM CDT) GLUCOSE BY METER POCT 67(L) 70 - 99 mg/dL 05/23/2024 8:02 PM CDT LABORATORY POC Blood, Capillary BLOOD SPECIMEN / Unknown 05/23/2024 7:55 PM CDT 05/23/2024 8:02 PM CDT us Antonino DEAN - BEAKER POCT Final Resul t LABORATORY [facility] Lab [address] Lab (1st floor, no room number) [place] [address], [facility] * (ABNORMAL) Tissue Aerobic Bacterial [...] JOJO >=32 ug/mL: Resistant Morganella morganii Piperacillin/Tazobactam OJJO <=4 ug/mL: Susceptible Morganella morganii Ceftazidime JOJO [...] Morganella morganii Trimethoprim/Sulfamethoxazole JOJO >16/304 ug/mL: Resistant us Lizandro Barron MD LAB - MICRO GENERAL ORDERABLES Final Result [facility] IDD LABORATORY [facility] Inf. Diseases Diag. Lab [address] [facility], [address] * (ABNORMAL) Gram Stain (05/23/2024 6:42 [...] GENERAL ORDERABLES Final Result Performing Organization Address City/[facility]/ZIP Co de Phone Number [facility] IDD LABORATORY [facility] Inf. Diseases Diag. Lab [address] [facility], [address] * Anaerobic Bacterial Culture Routine (05/23/2024 6:42 PM CDT) Culture 4+ Mixed Aerobic and Anaerobic dev JOJO 05/25/2024 2:01 PM CDT UU IDD LABORATORY Comment:No predominant organ ism Tissue SCROTAL STRUCTURE / Unknown Non-blood Collection / Unknown 05/23/2024 6:42 PM CDT 05/23/2024 6:46 PM CDT Lizandro Barron MD LAB - MICRO GENERAL ORDERABLES Final Result [facility] ID[facility] LABORATORY [facility] Inf. Diseases Diag. Lab [address] [facility], [address] [place] [address] * Glucose by meter (05/23/2024 5:41 PM CDT) GLUCOSE BY METER POCT 90 70 - 99 mg/dL 05/23/2024 5:49 PM CDT RH LABORATORY POC Blood, Capillary BLOOD SPECIMEN / Unknown 05/23/2024 5:41 PM CDT 05/23/2024 5:49 PM CDT us Vi Coe DO LAB - BEAKER POCT Final Result LABORATORY [facility] Care Lab [address] Lab (1st floor, no room number) [place] [address] * EKG 12-lead, tracing only (05/23/2024 5:08 PM CDT) Systolic Blood Pressure mmHg RADIOLOGY RESULTS Diastolic Blood Pressure mmHg RADIOLOGY RESULTS Ventricular Rate 63 BPM RAD IOLOGY RESULTS Atrial Rate 63 BPM RADIOLOG Y RESULTS VA Interval 222 ms RADIOLOG Y RESULTS QRS Duration 102 ms RADIOLO GY RESULTS QT 448 ms RADIOLOGY RESULTS QTc 458 ms RADIOLOGY RESULTS P Gilchrist 54 degrees RADIOLOGY RESULTS R AXIS -5 degrees RADIOLOGY RESULTS T Gilchrist 24 degrees RADIOLOGY RESULTS Interpretation ECG Sinus rhythm with 1st degree A-V block Septal infarct , age undetermined Abnormal ECG When compared with ECG of 02-Mar-2024 14:00, Septal infarct is now Present No significant change was found Confirmed by - EMERGENCY ROOM, PHYSICIAN ([id number]), senior technical editor LIZANDRO ZABALA ([id number]) on 05/24/2024 6:44:53 AM RADIOLOGY RESULTS 05/23/2024 [...] LAB - BLOOD ORDERABLES F inal Result [facility] Lab [address] Lab (1st floor, no room number) [place] [address], [facility] * CT Abdomen Pelvis w Contrast [...] 2:35 PM. MIKE LIPSCOMB MD SYSTEM ID: [id number] Narrative 05/23/2024 2:[address] ABDOMEN [...] veins which are not included in the pgybo-cd-mgby. MUSCULOSKELETAL: Stable degenerative changes at L4-L5 with [...] veins which are not included in the [id number]-kc-nrbq. 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 No destructive lesions in the bones. IMPRESSION: 1. 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 2. Other chronic findings as discussed above. Findings were discussed with Dr. Kenna Coe at 2:35 PM. MIKE LIPSCOMB MD SYSTEM ID: [id number] us Vi Coe DO IMG CT ORDERABLES Final Result * Adult Type and Screen (05/23/2024 2:07 PM CDT) ABO/RH(D) O POS 05/23/2024 1:37 PM CDT RH BLOOD BANK Antibody Screen Negative Negative 05/23/2024 1:37 PM CDT RH BLOOD BANK SPECIMEN EXPIRATION DATE [id number] 05/23/2024 1:37 PM CDT RH BLOOD BANK Blood BLOOD SPECIMEN / Unknown Venipuncture / Unknown 05/23/2024 2:07 PM CDT 05/23/2024 2:10 PM CDT Vi Coe DO LAB - BLOOD BANK TEST OR NORAH Final Result RH BLOOD BANK [address] [place] [address], [facility] * (ABNORMAL) CBC with [...] BLOOD ORDERABLES F inal Result RH LABORATORY [facility] Acute Care Lab [address] Lab (1st floor, no room number) [place] [address], [facility] * Lactic acid whole blood (05/23/2024 1:50 PM CDT) Pathologist [facility] Lactic Acid 0.9 0.7 - 2.0 mmol/L 05/23/2024 1:57 PM CDT RH LABORATORY Blood BLOOD SPECIMEN / Unknown Venipuncture / Unknown 05/23/2024 1:50 PM CDT 05/23/2024 1:54 PM CDT Vi Coe DO LAB - BLOOD ORDERABLES F inal Result RH LABORATORY [facility] Acute Care Lab [address] Lab (1st floor, no room number) [place] [address] * Blood Culture Peripheral Blood (05/23/2024 1:50 PM CDT) [facility] Culture No Growth 05/28/2024 4:06 PM CDT UU IDD LABORATORY Blood BLOOD SPECIMEN / Unknown Venipuncture / Unknown 05/23/2024 1:50 PM CDT 05/23/2024 1:53 PM CDT Vi Coe DO LAB - MICRO GENERAL ORDE RABLES Final Result [facility] IDD LABORATORY [facility] Inf. Diseases Diag. Lab [address] [facility], [address] [place] [address] * (ABNORMAL) Comprehensive metabolic panel (05/23/2024 1:50 PM CDT) Pathologist [facility] Sodium 134(L) 135 - 145 mmol/L 05/23/2024 2:21 PM CDT LABORATORY Potassium 3.6 3.4 - 5.3 mmol/L 05/23/2024 2:21 PM CDT LABORATORY Carbon Dioxide (CO2) 29 22 - [...] - BLOOD ORDERABLES F inal Result LABORATORY [facility] Acute Care Lab [address] [facility] Lab (1st floor, no room number) [place] [address], [facility] * (ABNORMAL) INR (05/23/2024 1:50 PM CDT) INR >10.00(HH) 0.85 - 1.15 05/23/2024 2:30 PM CDT LABORATORY Blood BLOOD SPECIMEN / Unknown Venipuncture / Unknown 05/23/2024 1:50 PM CDT 05/23/2024 1:55 PM CDT Vi Coe DO LAB - BLOOD ORDERABLES F inal Result LABORATORY [facility] Acute Care Lab [address] Lab (1st floor, no room number) [place] [address], [facility] documented in this encounter Visit [...] EVERY MORNING BEFORE BREAKFAST, First dose on Padmaaj 05/24/24 at 0800, DO NOT CRUSH. $Given [...] Edie Pack RN)2222 ($New Bag - Provider: eHidi Koo RN) 0535 ($New Bag - Provider: [...] Leon, LINDA)1343 ($Given - Provider: Edie Pack, RN)2132 ($Given - Provider: Kristin Lauren, RN) 0648 ($Given - Provider: Margarette Griffin, RN)1411 (Canceled Entry - Provider: Cecilia Crabtree [...] ($New Bag - Provider: Abbie Ramirez, LINDA) PRN Medication Order 05/28/2024 05/29/2024 05/30/2024 calcium [...] stools. documented in this encounter Care Teams Feeder Switchboard Operator Relationship Specialty Start Date End Date Cornell Butt PCP - General 06/24/11 documented as of this encounter
--- OUTSIDE RECORDS SUMMARY | 2024-08-31 13:06 | XMS_ITS | Encounter Summary ---
Author Organization [place] Address [address] [facility] [place] [address] Care Team Providers Care Abrasive Water Jet Cutter Operator Name Role Phone Preet Huff Primary Care Provider [phone] Jaxon Saravia MD Unavailable [phone] Encounter Details Date Type Department Care Team (Late Contact Info) Description 05/07/2013 Orders Only [facility] Interventional Radiology [address] [place] [phone] Layla Garcia RN Clotted dialysis access (H) (Primary Dx) Social History Tobacco Use Types Packs/Day Years Used Date Smoking Tobacco: Never Smokeless Tobacco: Never Alcohol Use Standard Drinks/Week Comments No 0 (1 standard drink = 0.6 oz pur e alcohol) Sex and Gender Information Value Date Recorded Sex Assigned at Not on file Legal Sex Male 5:12 AM PUMPER BREWERY Gender Identity Male 12/05/2017 10:39 AM PUMPER BREWERY Sexual Orientation Not on file documented as of this encounter Plan of Treatment Upcoming Encounters Date Type Department Care Team (Late st Contact Info) Description 09/27/2024 1:00 PM PUMPER BREWERY Office Visit [facility] [place] [address] [phone] Jaxon Saravia MD [address] [place] [address] documented as of this encounter Visit Diagnoses Diagnosis Clotted dialysis access (H)- Primary Mechanical complication of other vascular device, implant, and graft documented in this encounter Care Teams Abrasive Water Jet Cutter Operator Relationship Specialty Start Date End Date Preet Huff PCP - General 06/24/11 Jaxon Saravia MD [address] [place] [address] Assigned Heart and Vascular Provider 08/01/20 12/06/20 documented as of this encounter
--- OUTSIDE RECORDS SUMMARY | 2024-08-31 13:06 | XMS_ITS | Encounter Summary ---
Author Organization [place] Address [address] [facility] [place] [address] Care Team Providers Care Paper And Prints Restorer Name Role Phone HuffPreet cool Primary Care Provider [phone] Encounter Details Date Type Department Care Team (Late st Contact Info) Description 12/28/[address] 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 [place] [address] [place] [phone] Jaxon Saravia MD [address] [place] [address] documented as of this encounter Visit Diagnoses Not on filedocumented in this encounter Care Teams Paper And Prints Restorer Relationship Specialty Start Date End Date Preet Huff PCP - General 06/24/11 documented as of this encounter
--- OUTSIDE RECORDS SUMMARY | 2024-08-31 13:06 | XMS_ITS | Encounter Summary ---
Author Organization [place] Address [address] [facility] [place] [address] Care Team Providers Care Head Of Cytogenetics Name Role Phone Preet Huff Primary Care Provider [phone] Jaxon Saravia MD Unavailable [phone] Encounter Details Date Type Department Care Team (Late Contact Info) Description 12/21/2012 Orders Only [facility] Interventional Radiology [address] [place] [phone] Layla Garcia RN Social History Tobacco Use Types Packs/Day Years Used Date Smoking Tobacco: Never Smokeless Tobacco: Never Alcohol Use Standard Drinks/Week Comments No 0 (1 standard drink = 0.6 oz pur e alcohol) Sex and Gender Information Value Date Recorded Sex Assigned at Not on file Legal Sex Male 5:12 AM MONORAIL OPERATOR Gender Identity Male 12/05/2017 10:39 AM MONORAIL OPERATOR Sexual Orientation Not on file documented as of this encounter Plan of Treatment Upcoming Encounters Date Type Department Care Team (Late Contact Info) Description 09/27/2024 1:00 PM MONORAIL OPERATOR Office Visit [facility] [place] [address] [phone] Jaxon Saravia MD [address] [place] [address] documented as of this encounter Visit Diagnoses Not on filedocumented in this encounter Care Teams Head Of Cytogenetics Relationship Specialty Start Date End Date Preet Huff PCP - General 06/24/11 Jaxon Saravia MD [address] [place] [address] Assigned Heart and Vascular Provider 08/01/20 2 documented as of this encounter
--- NOTE | 2024-08-31 13:10 | ED.GENADULT ---
HPI - General Adult General Chief complaint: Seizure Stated complaint: Seizure Time Seen by Provider: 08/31/24 13:06 History of Present Illness HPI narrative: Pt was receiving dialysis and was reported to have a seizure . Seizure lasted 3 minutes. Pt was in a chair and did not fall or hit his head at time of event. No seizure history . Pt does have a cognitive delay at baseline. States no pain at this time. 59-year-old man presenting to the emergency department with concern of seizure. Apparently this lasted about 3 minutes. Mr. Enriquez does not offer any information about this. Underlying cognitive delay reported. Was apparently receiving his dialysis when this seizure occurred. Review of records shows most recent labs where he had a hemoglobin of 8 in May of this year; had been lower. He is anticoagulated with Coumadin; reason unclear at this time. Records also show a history of hyponatremia. Unremarkable head CT in February of this year. Mr. Enriquez is not noting any pain. No shortness of breath. Reportedly had an hour to go with his dialysis. Past medical/surgical history End-stage renal disease Av graft left thigh Diabetes type 2 History of CVA Anemia Hyperkalemia Iron deficiency History of Mita's gangrene Medications include atorvastatin, calcium acetate, Protonix, senna, WesCaps Related Data Home Medications ?Medication ?Instructions ?Recorded ?Confirmed calcium acetate(phosphat bind) 667 667 mg PO 3XD 02/23/24 08/31/24 mg capsule metoprolol tartrate 100 mg tablet mg PO 02/23/24 vitamin B complex and vitamin C 1 cap PO DAILY 02/23/24 08/31/24 no.20-folic acid 1 mg capsule (Virt-Caps) warfarin 5 mg tablet 5 mg PO DAILY 02/23/24 02/23/24 atorvastatin 20 mg tablet 20 mg PO DAILY 08/31/24 08/31/24 pantoprazole 40 mg tablet,delayed 40 mg PO BID 08/31/24 08/31/24 release sennosides 8.6 mg tablet (senna) 17.2 mg PO BID 08/31/24 08/31/24 vitamin B complex and vitamin C 1 cap PO DAILY 08/31/24 08/31/24 no.20-folic acid 1 mg capsule (Wescaps) Allergies Allergy/AdvReac Type Severity Reaction Status Date / Time aspirin Allergy Unknown Verified 08/31/24 13:10 Review of Systems Status of ROS: Reports: unobtainable due to mental status [facility] Medical History (Updated 08/31/24 @ 16:51 by Alejandro Cullen MD) CVA (cerebral vascular accident) ?I63.9 - Cerebral infarction, unspecified (ICD-10) Dialysis patient ?Z99.2 - Dependence on renal dialysis (ICD-10) Social History Smoking Status: Never smoker Do you use any of these nicotine containing products: None How often do you have a drink containing alcohol: never How often do you have six or more drinks on one occasion: Never AUDIT-C Alcohol total score: 0 Non-prescribed substance use: denies use Exam Narrative: Exam Narrative: Quiet. Offering little in conversation. Quiet a little distant. Cranial nerves 2-12 look to be intact. Pupils looks to be equal. Not necessarily assisting with exam. Clearly moving all extremities. Appears to have good tone throughout. Lower extremities are without edema. Generally appears well perfused. Small is a little of cigarette smoke. Lungs appear to be clear. Heart in regular rate and rhythm with 2/6 systolic murmur. Mucous membranes look a little pale. Oropharynx is edentulous and then no evidence of trauma. There is what I think might be blood staining on inner left shoe and the patch of faint erythema on the dorsum of the left shoe Const: Vital Signs, click to edit/add: Vital Signs - 24 hr 08/31/24 13:03 08/31/24 13:04 08/31/24 13:09 Temperature 97.4 F L Pulse Rate Pulse Rate [Left P ulse Oximeter] 75 Respiratory Rate 18 Blood Pressure 107/48 L 107/49 L Blood Pressure [Le ft Upper Arm] 107/48 L Pulse Oximetry 98 Oxygen Delivery Me thod Room Air 08/31/24 13:10 08/31/24 13:12 08/31/24 13:15 Temperature Pulse Rate 72 74 82 Pulse Rate [Left P ulse Oximeter] Respiratory Rate Blood Pressure 100/47 L Blood Pressure [Le ft Upper Arm] Pulse Oximetry 98 100 94 Oxygen Delivery Me thod 08/31/24 13:16 08/31/24 13:30 08/31/24 13:32 Temperature Pulse Rate 86 76 75 Pulse Rate [Left P ulse Oximeter] Respiratory Rate Blood Pressure 111/55 L 94/56 L Blood Pressure [Le ft Upper Arm] Pulse Oximetry 93 100 100 Oxygen Delivery Me thod 08/31/24 13:33 08/31/24 14:00 08/31/24 14:01 Temperature Pulse Rate 76 Pulse Rate [Left P ulse Oximeter] Respiratory Rate Blood Pressure 92/49 L 94/45 L Blood Pressure [Le ft Upper Arm] Pulse Oximetry 100 Oxygen Delivery Me thod 08/31/24 14:03 08/31/24 14:15 08/31/24 14:16 Temperature Pulse Rate 73 75 78 Pulse Rate [Left P ulse Oximeter] Respiratory Rate Blood Pressure 97/45 L Blood Pressure [Le ft Upper Arm] Pulse Oximetry 95 97 96 Oxygen Delivery Me thod 08/31/24 14:17 08/31/24 14:30 08/31/24 14:32 Temperature Pulse Rate 75 76 76 Pulse Rate [Left P ulse Oximeter] Respiratory Rate Blood Pressure 90/42 L Blood Pressure [Le ft Upper Arm] Pulse Oximetry 98 98 98 Oxygen Delivery Me thod 08/31/24 14:45 08/31/24 14:47 08/31/24 14:48 Temperature Pulse Rate 77 79 81 Pulse Rate [Left P ulse Oximeter] Respiratory Rate Blood Pressure 88/45 L Blood Pressure [Le ft Upper Arm] Pulse Oximetry 98 99 98 Oxygen Delivery Me thod 08/31/24 14:49 08/31/24 15:00 08/31/24 15:02 Temperature Pulse Rate 79 77 78 Pulse Rate [Left P ulse Oximeter] Respiratory Rate Blood Pressure 102/47 L 105/47 L Blood Pressure [Le ft Upper Arm] Pulse Oximetry 100 99 100 Oxygen Delivery Me thod 08/31/24 15:03 08/31/24 15:15 08/31/24 15:17 Temperature Pulse Rate 76 77 78 Pulse Rate [Left P ulse Oximeter] Respiratory Rate Blood Pressure 101/50 L Blood Pressure [Le ft Upper Arm] Pulse Oximetry 99 100 100 Oxygen Delivery Me thod 08/31/24 15:30 08/31/24 15:31 08/31/24 15:32 Temperature Pulse Rate 78 78 Pulse Rate [Left P ulse Oximeter] Respiratory Rate Blood Pressure 104/54 L Blood Pressure [Le ft Upper Arm] Pulse Oximetry 100 100 Oxygen Delivery Me thod 08/31/24 15:36 08/31/24 15:45 08/31/24 15:47 Temperature Pulse Rate 78 78 Pulse Rate [Left P ulse Oximeter] Respiratory Rate 18 Blood Pressure 103/46 L Blood Pressure [Le ft Upper Arm] Pulse Oximetry 99 100 Oxygen Delivery Me thod 08/31/24 16:00 08/31/24 16:01 08/31/24 16:15 Temperature Pulse Rate 81 80 81 Pulse Rate [Left P ulse Oximeter] Respiratory Rate Blood Pressure 102/49 L Blood Pressure [Le ft Upper Arm] Pulse Oximetry 99 99 100 Oxygen Delivery Me thod 08/31/24 16:17 08/31/24 16:30 08/31/24 16:31 Temperature Pulse Rate 84 79 76 Pulse Rate [Left P ulse Oximeter] Respiratory Rate Blood Pressure 101/49 L 101/45 L Blood Pressure [Le ft Upper Arm] Pulse Oximetry 100 99 98 Oxygen Delivery Me thod 08/31/24 16:32 08/31/24 16:45 08/31/24 16:46 Temperature Pulse Rate 81 79 79 Pulse Rate [Left P ulse Oximeter] Respiratory Rate Blood Pressure 91/44 L Blood Pressure [Le ft Upper Arm] Pulse Oximetry 98 99 99 Oxygen Delivery Me thod 08/31/24 16:57 Temperature Pulse Rate 85 Pulse Rate [Left P ulse Oximeter] Respiratory Rate Blood Pressure 91/49 L Blood Pressure [Le ft Upper Arm] Pulse Oximetry 99 Oxygen Delivery Me thod Documenting provider has reviewed patient's vital signs: yes Course Vital Signs Vital signs: Initial Vital Signs Temperature 97.4 F L 08/31/24 13:03 Temperature Source Temporal Artery Scan 08/31/24 13:03 Pulse Rate 75 08/31/24 13:03 Pulse Rhythm Regular 08/31/24 13:03 Respiratory Rate 18 08/31/24 13:03 Blood Pressure 107/48 L 08/31/24 13:03 Blood Pressure Mean 67 L 08/31/24 13:03 Blood Pressure Position Supine 08/31/24 13:03 Pulse Oximetry 98 08/31/24 13:03 Oxygen Delivery Method Room Air 08/31/24 13:03 Vital Signs Temperature 97.4 F L 08/31/24 13:03 Pulse Rate 75 08/31/24 13:03 Respiratory Rate 18 08/31/24 13:03 Blood Pressure 107/48 L 08/31/24 13:03 Pulse Oximetry 98 08/31/24 13:03 Oxygen Delivery Method Room Air 08/31/24 13:03 Temperature 97.4 F L 08/31/24 13:03 Pulse Rate 85 08/31/24 16:57 Respiratory Rate 18 08/31/24 15:36 Blood Pressure 91/49 L 08/31/24 16:57 Pulse Oximetry 99 08/31/24 16:57 Oxygen Delivery Method Room Air 08/31/24 13:03 Medications Administered Medications: Discontinued Medications Generic Name Dose Route Start Last Admin Trade Name Faisal PRN Reason Stop Dose Admin Sodium Chloride 500 mls @ 1,000 mls/hr 08/31/24 14:41 08/31/24 15:10 0.9 % Sodium Chloride 500 Ml IV 08/31/24 15:10 Infused .Q30M ONE Infusion Medical Decision Making MDM Narrative Medical decision making narrative: I am unaware that Mr. Enriquez has a history of seizures. Certainly this could have been a syncopal/vasovagal event and related shaking. He does appear to be postictal though I am unclear what his baseline is. Considering history would be beneficial to check labs. Might be markedly anemic or quite hyponatremic among other abnormalities. Will CT head as he is apparently anticoagulated looking for potential bleed. Unlikely that there is any sort of mass issue going on otherwise with recent normal head imaging. 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 May have been an arrhythmia. EKG reviewed by me shows normal sinus rhythm at a rate of 76. Looks very similar to May of 2024 EKG During monitoring in the emergency department does have lower blood pressures as low as 88/45. Does not appear to have any new symptoms. Have initiated 500 mL normal saline fluid bolus. Review of records from [facility] does show post dialysis blood pressures as low as just over 100 over 40s at times. Prior to receiving any significant amount of fluids has improved into the 1 teens over 50s again. Blood culture was collected. Sepsis is in differential. Labs are reassuring other than rather elevated creatinine, perhaps not unexpected. Mild elevation also in transaminases. INR consistent with a longer taking Coumadin is 1. Head CT reviewed independently by me looks to show chronic changes. No acute abnormality, no bleed. Would like to discuss baseline and next cares for Mr. Enriquez. I am unable to reach family at this time. Reviewing records further able to find reference to Mita's gangrene. I see also that visits to wound clinic have been canceled going forward. I ask Mr. Enriquez about this who is appearing to be much more clear about this. He says he believes the wound has healed. I do examine this area and see some pale skin I think would be consistent with the site of the wound. Do not see any open wounds currently. He does have Attends on which appear to be have been wetted. We have not managed to collect a urine at this time. I do manage to reach family, Aunsalvador Renee who notes that Herminio has never had a seizure before. However he has had a stroke of some maybe around 10 years ago. This was while he was out in [place]. He does look to be taking a statin. She says that his doctor had discontinued him from Coumadin a week ago. Has been hospitalized at [facility] in [facility] before. Discussed with Neurology covering [facility], including comorbidities, recommendations are for close outpatient follow-up with EEG within the next couple of weeks. No antiepileptic recommended at this time. If has recurrence, would hospitalize for more urgent evaluation. Blood pressures appear to have stabilized. Aunsalvador Renee arrives later and confirms blood pressures are typically like this after dialysis and that mentating normally. Initial standing before ambulation is a little bit unsteady but improved. This apparently is not atypical. After extended period of observation emergency department does appears stable for discharge See patient discharge plan for further discussion Your sodium level was low but not terribly so for you. Your liver enzymes were elevated a little bit. Not sure why, though this could have been related to the seizure-like activity you experienced. I did speak with Neurology covering for [facility]. Their recommendations are to get an outpatient EEG within the next 2 weeks. I would communicate this information to your primary care provider as soon as possible and I would expect they should be able to set this up. Not recommending antiseizure medications at this time. Considering your apparent prior stroke history, do need to also review what medication you need to be taking for stroke prevention. Please discuss with your primary care provider. I would recheck your labs, if not done at dialysis, then in primary care clinic around the middle of next week. If however you have a recurrent seizure, would be seen in the emergency department at which point I would anticipate admission for further workup/evaluation. Medical Records Medical records reviewed: Yes I reviewed the patient's medical records Lab Data Lab results reviewed: Yes I reviewed the patient's lab results Labs: Lab Results 08/31/24 Range/Units 13:25 WBC 3.69 L (4.50-11.00) K/uL RBC 4.85 (4.30-5.90) m/uL Hgb 12.3 L (13.5-17.5) gm/dL Hct 40.6 (37.0-53.0) % MCV 84 (80-100) fL MCH 25 L (26-34) pg MCHC 30 L (32-36) gm/dL RDW Coeff of Zeenat 19.4 H (11.5-15.5) % Plt Count 99 L (140-440) K/uL Neut % (Auto) 69.2 (42.0-72.0) % Lymph % (Auto) 14.4 L (20-44) % [place] % (Auto) 14.4 H (0.0-11.0) % Eos % (Auto) 1.4 (0.0-7.0) % Baso % (Auto) 0.3 (0.0-3.0) % Neut # (Auto) 2.60 (1.7-7.0) K/uL Lymph # (Auto) 0.50 L (0.90-2.90) K/uL [place] # (Auto) 0.50 (0.00-0.90) K/UL Eos # (Auto) 0.10 (0.00-0.50) K/uL Baso # (Auto) 0.00 (0.00-0.30) K/uL Abs Immat Gran (auto) 0.00 (0.00-0.30) K/uL Imm/Tot Granulo (auto) 0.3 % INR 1.01 (0.91-1.10) Sodium 129 L (135-149) mmol/L Potassium 3.4 L (3.6-5.1) mmol/L Chloride 91 L (96-114) mmol/L Carbon Dioxide 29 (20-32) mmol/L Anion Gap 9 (7-15) mEq/L BUN 34 H (7-30) mg/dL Creatinine 7.2 H (0.5-1.5) mg/dL Estimated Creat Clear 10.07 Estimated GFR 8 ml/min Glucose 176 H (60-115) mg/dL Calcium 9.3 (8.4-10.6) mg/dL Total Bilirubin 0.6 (0.1-1.5) mg/dL Direct Bilirubin 0.4 (0.0-0.5) mg/dL AST 50 H (12-35) U/L ALT 84 H (4-50) U/L Alkaline Phosphatase 185 H (40-150) U/L Total Protein 8.3 (6.0-8.3) g/dL Albumin 4.7 (3.3-5.0) g/dL ECG Data Attestation: I personally reviewed and interpreted this ECG as follows: (Normal sinus rhythm at a rate of 76) Critical Care Time Critical Care Time Critical Care Time: Yes (70) Attestation: The patient required my highest level preparedness to intervene emergently and I personally spent this critical care time directly and personally managing the patient. This critical care time included: Obtaining a history; Examining the patient; Pulse oximetry; Ordering and reviewing of studies; Arranging urgent treatment with development of a management plan; Evaluation of patients response to treatment; Frequent reassessment discussions with other providers. This critical care time was performed to assess and manage the high probability of imminent life-threatening deterioration that could result in multiorgan failure. It was exclusive of separate billable procedures and treating other patients and teaching time. Total Critical Care Time in Minutes: 70 Discharge Plan Discharge Clinical Impression: Witnessed seizure-like activity, Renal failure, Chronic hyponatremia Patient Disposition: Home w/ Parent or Adult Condition: Improved Additional Instructions: Your sodium level was low but not terribly so for you. Your liver enzymes were elevated a little bit. Not sure why, though this could have been related to the seizure-like activity you experienced. I did speak with Neurology covering for [facility]. Their recommendations are to get an outpatient EEG within the next 2 weeks. I would communicate this information to your primary care provider as soon as possible and I would expect they should be able to set this up. Not recommending antiseizure medications at this time. Considering your apparent prior stroke history, do need to also review what medication you need to be taking for stroke prevention. Please discuss with your primary care provider. I would recheck your labs, if not done at dialysis, then in primary care clinic around the middle of next week. If however you have a recurrent seizure, would be seen in the emergency department at which point I would anticipate admission for further workup/evaluation. Prescriptions: No Action metoprolol tartrate 100 mg tablet PO warfarin 5 mg tablet 5 mg PO DAILY Virt-Caps 1 mg capsule 1 cap PO DAILY calcium acetate(phosphat bind) 667 mg capsule 667 mg PO 3XD sennosides [senna] 8.6 mg tablet 17.2 mg PO BID atorvastatin 20 mg tablet 20 mg PO DAILY pantoprazole 40 mg tablet,delayed release (DR/EC) 40 mg PO BID Wescaps 1 mg capsule 1 cap PO DAILY Follow Up/Referrals: Williams Holman MD [Primary Care Provider] - Stand Alone Forms: [employer] Info Instructions
--- NOTE | 2024-08-31 13:18 | CRLHL7_ITS ---
For Patients: As a result of the Century Cures Act, medical imaging exams and procedure reports are released immediately into your electronic medical record. You may view this report before your referring provider. If you have questions, please contact your health care provider. Indication: First seizure Technique: Volumetric multidetector CT images of the head were obtained without the administration of low osmolar intravenous contrast. Comparison: CT head July 12, 2015 Findings: There is no intra-axial or extra-axial fluid collection. There is no mass effect or midline shift. There is moderate global cortical atrophy with sulcal widening and ex vacuo dilatation of lateral ventricles somewhat greater than expected for age. There are chronic small vessel disease changes in the subcortical and periventricular white matter without lost yip-white differentiation. The orbits and their contents are grossly within normal limits. The bony calvarium is grossly intact. The paranasal sinuses are clear. The mastoid air cells are well aerated. Impression: Global cortical atrophy with sulcal widening and ex vacuo dilatation of the lateral ventricles somewhat greater than expected for age with prominence of the temporal horns. Otherwise, no acute intracranial abnormality. Please note that all CT scans at this facility use dose modulation, iterative reconstruction, and/or weight-based dosing when appropriate to reduce radiation dose to as low as reasonably achievable. Dictated by Dhaval Navarro MD @ 08/31/2024 2:12:40 PM (Electronically Signed)
--- OUTSIDE RECORDS SUMMARY | 2024-08-31 13:39 | XMS_ITS | Encounter Summary ---
Author Organization [facility] Address [address] [place] [phone] Phone Care Team Providers Care Lace Sewer Name Role Phone Preet Huff MD Primary Care Provider Reason for Visit * Reason Comments Med Refill Encounter Details Date Type Department Care Team (Late st Contact Info) Description 03/23/2021 Refill [facility] [address] [place], [place] [id number] María Elena Styles PA [address] [facility] [address] [place] [address] Social History Tobacco Use Types Packs/Day Years [...] on filedocumented in this encounter Care Teams Lace Sewer Relationship Specialty Start Date End Date Preet Huff MD [address] [place] [id number] PCP - General 10/31/19 documented as of this encounter
--- OUTSIDE RECORDS SUMMARY | 2024-08-31 13:39 | XMS_ITS | Clinical Summary ---
Author Organization [place] Address [address] [facility] [place] [address] Care Team Providers Care Medical Sales Specialist Name Role Phone Preet Huff Primary Care Provider [phone] Allergies No known active allergies Medications calcium acetate (PHOSLO) 667 MG CAPS capsule Take 1,334 mg by mouth 3 times daily (with meals). Active calcium acetate (PHOSLO) 667 MG CAPS capsule Take 1,334 mg by mouth Take with snacks or supplements . Take 1 capsule (667 mg) once daily with a snack Active B Lvgxucu-O-Noqfk Acid (WESCAPS PO) Take 1 capsule by [...] Date Type Department Care Team Description 08/27/2024 [facility] [place] [address] [place] [address] Jaxon Saravia MD Clinic Care Coordination - Follow-up (Follow up after ED visit 08/24/2024. 05/28/[address] Saravia. 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) Discharge Disposition: Fdc Facility 08/24/2024 Travel 07/12/2024 12:18 AM CDT - 07/12/2024 7:24 AM CDT Emergency [facility] Emergency Dept [address] [place] [address] Avery Fernando MD Richardson, Elizabeth, MD Transient [...] on file Legal Sex Male 5:12 AM HYPERION DEVELOPER Gender Identity Male 12/05/2017 10:39 AM HYPERION DEVELOPER Sexual Orientation Not on file Last Filed Vital Signs Vital Sign Reading Time Taken Comments Blood Pressure 105/48 08/25/2024 1:00 PM HYPERION DEVELOPER Pulse 66 08/25/2024 1:00 PM HYPERION DEVELOPER Temperature 36.5 C (97.7 F) 08/25/2024 1:00 PM HYPERION DEVELOPER Respiratory Rate 16 08/25/2024 1:00 PM HYPERION DEVELOPER Oxygen Saturation 100% 08/25/2024 1:00 PM HYPERION DEVELOPER Inhaled Oxygen Concentration - - Weight 88 kg (194 lb 1.6 oz) 08/25/2024 8:30 AM HYPERION DEVELOPER Height 162.6 cm (5' 4) 08/24/2024 5:27 PM HYPERION DEVELOPER Body Mass Index 33.32 08/24/2024 5:27 PM HYPERION DEVELOPER Plan of Treatment Upcoming Encounters Date Type Department Care Team (Late st Contact Info) Description 09/27/2024 1:00 PM HYPERION DEVELOPER Office Visit [facility] [place] [address] [place] [phone] Jaxon Saravia MD [address] [address] Health Maintenance Due Date Last Done Comments [...] this topic Medical Devices Implanted Type Area Personal Banking Advisor Device Identifier Shelf Expiration Date Model / Serial / Lot Graft Patch Vasc Xenosure Biologic 0.8x08cm 0.8p8 Implanted:Qty: 1 on 12/16/2017 by Jaxon Saravia MD at [facility] Bone/Tis rocco/Biol ogic Left: Iliac/Fem orals LEMAITRE VASCULAR IN 06/06/2023 0.8P8 / / [id number] Graft Pericardium 8x0.8cm Vascu-Guard Implanted:Qty: 1 on 10/20/[address] [facility] Right: Arm [employer] 01/16/2016 [id number] / / [id number] Femoral Popliteal Artery Implanted:Qty: 1 on 05/03/2012 by Jaxon Saravia MD at [facility] Right: Groin 12/07/2021 [id number] / [id number] / Description:CADAVER FEMORAL ARTERY RINSED IN A AND B SOLUTION: A SOLUTION LOT #[id number] EXPIRATION DATE 01/09/2014 B SOLUTION LOT #[id number] EXPIRATION DATE 11/15/2013 Graft Propaten Taper 4-7aap86se [id number] Implanted:Qty: 1 on 08/09/2012 by Jaxon Saravia MD at [facility] Right: Leg 10/24/2015 [id number] / / [id number] Graft Propaten Taper 4-4yzd20ct [id number] Implanted:Qty: 1 on 06/20/2013 by Jaxon Saravia MD at [facility] Left: Groin [employer].H[employer]OCIATE 02/07/2017 [id number] / / [id number] Graft Pericardium 8x0.8cm Vascu-Guard Implanted:Qty: 1 on 05/08/2014 by Jaxon Saravia MD at [facility] Left: Leg [employer] 11/26/2018 [id number] / PN# [id number] / [id number] Procol Vascular Bioprosthesis Implanted:Qty: 1 on 07/02/2015 by Jaxon Saravia MD at [facility] Left: Groin 12/16/2018 [id number] -N / [id number] / Procol Vascular Bioprosthesis Implanted:Qty: 1 on 08/13/2015 by Jaxon Saravia MD at [facility] Left: Groin 12/16/2018 [id number] -[id number] / [id number] / Graft Vasc Bioprosthesis Procol [id number] Implanted:Qty: 1 on 03/05/2016 by Jaxon Saravia MD at [facility] Left: Leg LEMAITRE VASCULAR IN 02/03/2019 [id number] -[id number] / [id number] / Procedures Procedure Name Priority Date/Time Associated Diagnosis Comments CBC WITH PLATELETS & DIFFERENTIAL STAT 08/25/2024 6:52 AM HYPERION DEVELOPER CBC WITH PLATELETS AND DIFFERENTIAL STAT 08/25/2024 6:52 AM HYPERION DEVELOPER INR Routine 08/25/2024 6:52 AM HYPERION DEVELOPER BASIC METABOLIC PANEL Routine 08/25/2024 6:52 AM HYPERION DEVELOPER US EXTREMITY ARTERIAL VENOUS DIALYSIS ACCESS GRAFT STAT 08/24/2024 3:25 PM HYPERION DEVELOPER BASIC METABOLIC PANEL STAT 08/24/2024 12:50 PM HYPERION DEVELOPER CBC WITH PLATELETS & DIFFERENTIAL STAT 08/24/2024 10:43 AM HYPERION DEVELOPER CBC WITH PLATELETS AND DIFFERENTIAL STAT 08/24/2024 10:43 AM HYPERION DEVELOPER INR STAT 08/24/2024 10:43 AM HYPERION DEVELOPER TROPONIN T, HIGH SENSITIVITY STAT 07/12/2024 4:23 [...] CDT LIPID PROFILE STAT 12/07/2017 12:34 PM HYPERION DEVELOPER 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 WBC Count 2.7(L) 4.0 - 11.0 10e3/uL 08/25/2024 6:58 AM HYPERION DEVELOPER [facility] RBC Count 4.40 4.40 - 5.90 10e6/uL 08/25/2024 6:58 AM HYPERION DEVELOPER [facility] Hemoglobin 11.4(L) 13.3 - 17.7 g/dL 08/25/2024 6:58 AM HYPERION DEVELOPER [facility] Hematocrit 36.5(L) 40.0 - 53.0 % 08/25/2024 6:58 AM HYPERION DEVELOPER [facility] MCV 83 78 - 100 fL 08/25/2024 6:58 AM HYPERION DEVELOPER [facility] MCH 25.9(L) 26.5 - 33.0 pg 08/25/2024 6:58 AM HYPERION DEVELOPER [facility] MCHC 31.2(L) 31.5 - 36.5 g/dL 08/25/2024 6:58 AM HYPERION DEVELOPER [facility] RDW 18.6(H) 10.0 - 15.0 % 08/25/2024 6:58 AM HYPERION DEVELOPER [facility] Platelet Count 112(L) 150 - 450 10e3/uL 08/25/2024 6:58 AM HYPERION DEVELOPER [facility] % Neutrophils 56 % 08/25/2024 6:58 AM HYPERION DEVELOPER [facility] % Lymphocytes 24 % 08/25/2024 6:58 AM HYPERION DEVELOPER [facility] % Monocytes 16 % 08/25/2024 6:58 AM HYPERION DEVELOPER [facility] % Eosinophils 3 % 08/25/2024 6:58 AM HYPERION DEVELOPER [facility] % Basophils 0 % 08/25/2024 6:58 AM HYPERION DEVELOPER [facility] % Immature Granulocytes 0 % 08/25/2024 6:58 AM HYPERION DEVELOPER [facility] NRBCs per 100 WBC 0 <1 /100 024 6:58 AM HYPERION DEVELOPER [facility] Absolute Neutrophils 1.5(L) 1.6 - 8.3 10e3/uL 08/25/2024 6:58 AM HYPERION DEVELOPER [facility] Absolute Lymphocytes 0.7(L) 0.8 - 5.3 10e3/uL 08/25/2024 6:58 AM HYPERION DEVELOPER [facility] Absolute Monocytes 0.4 0.0 - 1.3 10e3/uL 08/25/2024 6:58 AM HYPERION DEVELOPER [facility] Absolute Eosinophils 0.1 0.0 - 0.7 10e3/uL 08/25/2024 6:58 AM HYPERION DEVELOPER [facility] Absolute Basophils 0.0 0.0 - 0.2 10e3/uL 08/25/2024 6:58 AM HYPERION DEVELOPER [facility] Absolute Immature Granulocytes 0.0 <=0.4 10e3/uL 08/25/2024 6:58 AM HYPERION DEVELOPER [facility] Absolute NRBCs 0.0 10e3/uL 08/25/2024 6:58 AM HYPERION DEVELOPER [facility] Blood STRUCTURE OF RIGHT HAND / Unknown Venipuncture / Unknown 08/25/2024 6:52 AM HYPERION DEVELOPER 08/25/2024 6:56 AM HYPERION DEVELOPER us Kolby Gandara MD LAB - BLOOD ORDERABLES Final Result [facility] [address] Lab (1st floor, no room number) [place] [address], [facility] * (ABNORMAL) INR (08/25/2024 6:52 AM HYPERION DEVELOPER) Only the most recent of3 resultswithin the time period is included. [facility] INR 2.01(H) 0.85 - 1.15 08/25/2024 7:07 AM [facility] Blood STRUCTURE OF RIGHT HAND / Unknown Venipuncture / Unknown 08/25/2024 6:52 AM HYPERION DEVELOPER 08/25/2024 6:56 AM HYPERION DEVELOPER us Kolby Gandara MD LAB - BLOOD ORDERABLES Final Result LABORATORY [facility] [address] Lab (1st floor, no room number) [place] [address], [facility] * (ABNORMAL) Basic metabolic panel (08/25/2024 6:52 AM HYPERION DEVELOPER) Only the most recent of3 resultswithin the time period is included. Pathologist [facility] Sodium 128(L) 135 - 145 mmol/L 08/25/2024 7:18 AM [facility] Potassium 4.3 3.4 - 5.3 mmol/L 08/25/2024 7:18 AM [facility] Chloride 88(L) 98 - 107 mmol/L 08/25/2024 7:18 AM [facility] Carbon Dioxide (CO2) 23 22 - 29 mmol/L 08/25/2024 7:18 AM [facility] Anion Gap 17(H) 7 - 15 mmol/L 08/25/2024 7:18 AM [facility] Urea Nitrogen 57.7(H) 8.0 - 23.0 mg/dL 08/25/2024 7:18 AM [facility] Creatinine 11.75(H) 0.67 - 1.17 mg/dL 08/25/2024 7:18 AM [facility] GFR Estimate 4(L) >60 mL/min/1. 73m2 08/25/2024 7:18 AM [facility] Comment:eGFR calculated 2020 CKD-EPI equation. Calcium 8.7(L) 8.8 - 10.4 mg/dL 08/25/2024 7:18 AM [facility] Comment:Reference intervals for this test were updated on 04/24/2024 to reflect our healthy population more accurately. There may be differences in the flagging of prior results with similar values performed with this method. Those prior results can be interpreted in the context of the updated reference intervals. Glucose 92 70 - 99 mg/dL 08/25/2024 7:18 AM HYPERION DEVELOPER [facility] Blood STRUCTURE OF RIGHT HAND / Unknown Venipuncture / Unknown 08/25/2024 6:52 AM HYPERION DEVELOPER 08/25/2024 6:56 AM HYPERION DEVELOPER Kolby Gandara MD LAB - BLOOD ORDERABLES Final Result [facility] [address] Lab (1st floor, no room number) [place] [address], [facility] * US Ext Arterial Venous Dialys Acs Graft (08/24/2024 3:25 PM HYPERION DEVELOPER) Anatomical Region Laterality Modality Vascular, Abdomen/Pelvis Ultraso und Impressions 08/24/2024 4:23 PM HYPERION DEVELOPER IMPRESSION: 1. Patent arteriovenous fistula. 2. 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 ISIS REINOSO DO Narrative 08/24/2024 4:23 PM HYPERION DEVELOPER US EXTREMITY ARTERIAL VENOUS DIALYSIS ACCESS GRAFT [...] The AV anastomosis is patent. Procedure Note Issi Reinoso DO - 08/24/2024 US EXTREMITY ARTERIAL [...] cm. ISIS REINOSO DO Mateo Gonzalez MD [facility] US ORDERABLES Final Result * (ABNORMAL) Troponin T, High Sensitivity (07/12/2024 4:23 AM CDT) Only the most recent of2 resultswithin the time period is included. [facility] Troponin T, High Sensitivity 41(H) [...] - BLOOD ORDERABLES Final Res ult LABORATORY [facility] [address] Lab (1st floor, no room number) [place] [address], [facility] * XR Chest 2 Views (07/12/2024 3:15 AM CDT) Anatomical Region Laterality Modality Chest Digital Radiogra phy 07/12/2024 3:15 AM CDT Impressions 07/12/2024 3:18 AM CDT IMPRESSION: Low lung volumes but the lungs appear clear. Normal heart size and pulmonary vascularity. No pleural fluid or pneumothorax. Narrative 07/12/2024 3:18 AM CDT EXAM: XR CHEST 2 VIEWS LOCATION: [facility] DATE: 07/12/2024 INDICATION: ams COMPARISON: 03/11/2024. 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 NECK CTA: 1. Normal configuration [...] CONTRAST, CTA HEAD NECK W CONTRAST LOCATION: [facility] DATE: 07/12/2024 INDICATION: ams and [...] CONTRAST, CTA HEAD NECK W CONTRAST LOCATION: [facility] DATE: 07/12/2024 INDICATION: ams and [...] vascular malformation involving the arteries [place] NECK CTA: 1. Normal configuration of [...] Fernando at 1:49 am on 07/12/2024. Avery Feranndo MD [facility] CT ORDERABLES Final Result * CTA Head [...] vascular malformation involving the arteries of the [place]. NECK CTA: 1. Normal configuration [...] CONTRAST, CTA HEAD NECK W CONTRAST LOCATION: [facility] DATE: 07/12/2024 INDICATION: ams and [...] CONTRAST, CTA HEAD NECK W CONTRAST LOCATION: [facility] DATE: 07/12/2024 INDICATION: ams and [...] vascular malformation involving the arteries [place] NECK CTA: 1. Normal configuration of [...] 1:49 am on 07/12/2024. Avery Fernando MD [facility] CT ORDERABLES Final Result * CT Head [...] vascular malformation involving the arteries of the [place]. NECK CTA: 1. Normal configuration [...] CONTRAST, CTA HEAD NECK W CONTRAST LOCATION: [facility] DATE: 07/12/2024 INDICATION: ams and [...] CONTRAST, CTA HEAD NECK W CONTRAST LOCATION: [facility] DATE: 07/12/2024 INDICATION: ams and [...] vascular malformation involving the arteries [place] NECK CTA: 1. Normal configuration of [...] Red Top Tube (07/12/2024 1:14 AM CDT) [facility] Hold Specimen [facility] 07/12/2024 2:31 AM CDT LABORATORY Blood BLOOD SPECIMEN / Unknown Venipuncture / Unknown 07/12/2024 1:14 AM CDT 07/12/2024 1:23 AM CDT Avery Fernando MD LAB - BLOOD ORDERABLES Final Res ult LABORATORY [facility] [address] Lab (1st floor, no room number) [place] [address] * Adult Type and Screen (07/12/2024 1:14 AM CDT) ABO/RH(D) O POS 07/12/2024 1:01 AM CDT RH BLOOD BANK Antibody Screen Negative Negative 07/12/2024 1:01 AM CDT RH BLOOD BANK SPECIMEN EXPIRATION DATE [id number] 07/12/2024 1:01 AM CDT RH BLOOD BANK Blood BLOOD SPECIMEN / Unknown Venipuncture / Unknown 07/12/2024 1:14 AM CDT 07/12/2024 1:23 AM CDT Avery Fernando MD LAB - BLOOD BANK TEST ORDER Summer l Result Performing Organization Address [facility]/ZIP Co de Phone Number BLOOD BANK [address] [place] [address] * Lactic acid whole blood (07/12/2024 1:14 AM CDT) Lactic Acid 0.8 0.7 - 2.0 mmol/L 07/12/2024 1:27 AM CDT [facility] LAB[facility]ATORY Blood BLOOD SPECIMEN / Unknown Venipuncture / Unknown 07/12/2024 1:14 AM CDT 07/12/2024 1:23 AM CDT Avery Fernando MD LAB - BLOOD ORDERABLES Final Res ult LABORATORY [facility] [address] Lab (1st floor, no room number) [place] [address] * Hepatic function panel (07/12/2024 1:14 AM [...] BLOOD ORDERABLES Final Res ult RH LABORATORY [facility] [address] Lab (1st floor, no room number) [place] [address], [facility] * Blood Culture Peripheral Blood (07/12/2024 1:14 AM CDT) Culture No Growth 07/17/2024 4:46 AM CDT [facility] Blood BLOOD SPECIMEN / Unknown Venipuncture / Unknown 07/12/2024 1:14 AM CDT 07/12/2024 1:23 AM CDT Avery Fernando MD LAB - MICRO GENERAL ORDERABLES F inal Result [facility] Inf. Diseases Diag. Lab [address] [place] [address], [facility] * (ABNORMAL) Glucose by meter (07/12/2024 1:13 AM CDT) GLUCOSE BY METER POCT 133(H) 70 - 99 mg/dL 07/12/2024 1:20 AM CDT [facility] POC Blood, venous BLOOD SPECIMEN / Unknown 07/12/2024 1:13 AM CDT 07/12/2024 1:20 AM CDT Avery Fernando MD LAB - BEAKER POCT Final Result RH LABORATORY POC [facility] [address] Lab (1st floor, no room number) [place] [address] * EKG 12-lead, tracing only (07/12/2024 12:24 AM CDT) Systolic Blood Pressure mmHg RADIOLOGY RESULTS Diastolic Blood Pressure mmHg RADIOLOGY RESULTS Ventricular Rate 65 BPM RAD IOLOGY RESULTS Atrial Rate 65 BPM RADIOLOG Y RESULTS CO Interval 234 ms RADIOLOG Y RESULTS QRS Duration 112 ms RADIOLO GY RESULTS QT 430 ms RADIOLOGY RESULTS QTc 447 ms RADIOLOGY RESULTS P [place] 53 degrees RADIOLOGY RESULTS R AXIS 10 degrees RADIOLOGY RESULTS T [place] 51 degrees RADIOLOGY RESULTS Interpretation ECG Sinus rhythm with 1st degree A-V block Otherwise normal ECG When compared with ECG of 23-May-2024 17:08, Criteria for Septal infarct are no longer Present Unconfirmed report - interpretation of this ECG is computer generated - see medical record for final interpretation Confirmed by - EMERGENCY ROOM, PHYSICIAN ([id number]), editor trade journal YISSEL VELASQUEZ ([id number]) on 07/12/2024 6:51:31 AM RADIOLOGY RESULTS 07/12/2024 [...] LAB - BLOOD ORDERABLES Fin al Result [facility] Acute Care Lab [address] Lab (1st floor, no room number) [place] [address], [facility] * COLONOSCOPY (03/08/2024 1:04 PM CDT) [facility] Patient Name: Herminio Victor Procedure Date: 03/08/2024 [...] continuously. The Olympus Adult Colonoscope, Model # [id number], Censitrac # [id number] was introduced through the anus and advanced [...] blood stool (02/24/2024 11:31 AM CDT) Pathologist [facility] Occult Blood Positive(A ) Negative JOJO 02/24/2024 11:40 AM CDT LABORATORY Stool RECTAL CONTENTS / Unknown Non-blood Collection / Unknown 02/24/2024 11:31 AM CDT 02/24/2024 11:38 AM CDT us Jae Noel MD LAB - STOOLS ORDERABLES Final Re sult Performing Organization Address City/[facility]/ZIP Co de Phone Number LABORATORY [facility] [address] Lab (1st floor, no room number) [place] [address] * Hepatitis C (HIM External Result) (01/04/2022 12:00 PM CDT) Hep C HIM See Scanned Document EXTERNAL LAB Comment:Nonreactive 01/04/2022 12:0 0 PM CDT Narrative EXTERNAL LAB - 01/04/2022 12:00 PM CDT LAB RESULT [facility] [address] [place] [address] us Provider Outside LAB - HIM EXTERNAL RESULT Final Result EXTERNAL LAB External Lab * (ABNORMAL) Lipid panel (12/07/2017 12:34 PM HYPERION DEVELOPER) Pathologist [facility] Cholesterol 115 <200 mg/dL 12/07/2017 1:27 PM [facility] Triglycerides 84 <150 mg/dL 12/07/2017 1:27 PM HYPERION DEVELOPER [facility] HDL Cholesterol 37(L) >39 mg/dL 8 1:27 PM [facility] LDL Cholesterol Calculated 61 <100 mg/dL 12/07/2017 1:27 PM HYPERION DEVELOPER [facility] Comment:Desirable: <100 mg/d l Non HDL Cholesterol 78 <130 mg/dL 12/07/2017 1:27 PM HYPERION DEVELOPER [facility] Blood specimen (specimen) 12/07/2017 12:34 PM HYPERION DEVELOPER 12/07/2017 12:58 PM HYPERION DEVELOPER Michele Fuentes MD LAB - BLOOD ORDERABLES Final Result [facility] [address] [place] [address], [facility] [phone] from Last 3 Months or Most Recently Relevant to Health Maintenance Insurance [place] Advance Directives For more information, please contact: [phone] * Full Code (Latest Code Status on [...] patie nt/ legal decision maker Care Teams Medical Sales Specialist Relationship Specialty Start Date End Date Preet Huff PCP - General 06/24/11
--- OUTSIDE RECORDS SUMMARY | 2024-08-31 13:39 | XMS_ITS | Clinical Summary ---
Author Organization [facility] Address [place], [place] [address] Care Team Providers Care Military Technician Name Role Phone Preet Huff MD [...] DVT of upper extremity (deep vein thrombosis) FPC (current) use of anticoagulants 2010 Secondary hyperparathyroidism [...] Type Department Care Team Description 08/11/2024 Refill [facility] [address] [place] [address] Preet Huff MD Refill Request (Amlodipine) 07/27/2024 Telephone [facility] [address] [place] [address] Preet Huff MD blood pressure 07/26/2024 Nurse Triage [facility] [address] [place] [address] Preet Huff MD Low Blood Pressure 07/24/2024 Telephone [facility] [address] [place] [address] Preet Huff MD DME Supply (Walker); [place] 06/28/2024 Orders Only [facility] Scanner 1 scan: (1-Ord) [place], WOUND DEBRIDEMENT ANTERIOR SCROTUM, 06/28/2024 06/13/2024 Telephone [facility] [address] [place] [address] Preet Huff MD Follow Up (NO OPENINGS AT WOUND CLINIC) 06/07/2024 2:30 PM CDT Office Visit [facility] [address] [place] [address] Lizandro Singh MD Sleep Follow-up 06/07/2024 2:05 PM CDT Office Visit [facility] [address] [place] [address] Preet Huff MD Hospital [facility] 06/07/2024 Travel from Last 3 [...] Completed 10/21/2009 Medical Devices Implanted Type Area Lining Marker Device Identifier Shelf Expiration Date Model / Serial / Lot Cath Peritoneal Cvd 62cm - [id number] Implanted:Qty: 1 on 10/31/2009 at [facility] N/A: Abdomen STIVEN 05/10/2014 [id number] # / / [id number] Procedures Procedure Name Priority Date/Time Associated Diagnosis Comments SCAN-OPERATIVE/PROC EDURE REPORT 06/28/2024 12:00 AM CDT LIPID PANEL W REFLEX MEASURED LDL Routine 11/08/2023 3:05 PM AIRPORT SECURITY SCREENER Mixed hyperlipidemia COLONOSCOPY SCREENING Routine 09/24/2013 12:00 AM AIRPORT SECURITY SCREENER Colon cancer screening ANTI HIV 1/2 Timed [...] W REFLEX MEASURED LDL (11/08/2023 3:05 PM AIRPORT SECURITY SCREENER) CHOLESTEROL,TOTAL 90(L) 100 - 199 mg/dL 11/09/2023 10:41 AM AIRPORT SECURITY SCREENER [facility] Comment: Cholesterol, Total Reference Ranges Desirable <200 mg/dL Borderline 200-239 mg/dL High >=240 mg/dL TRIGLYCERIDES 104 <150 mg/dL 11/09/2023 10:41 AM AIRPORT SECURITY SCREENER [facility] HDL CHOLESTEROL 30(L) >40 mg/dL 10:41 AM AIRPORT SECURITY SCREENER [facility] NON-HDL CHOLESTEROL 60 <145 mg/dl 11/09/2023 10:41 AM [facility] CHOL/HDL RATIO 3.00 <4.50 11/09/2023 10:41 AM AIRPORT SECURITY SCREENER [facility] LDL CHOLESTEROL 39 <=130 mg/dL 11/09/2023 10:41 AM AIRPORT SECURITY SCREENER [facility] VLDL CHOLESTEROL 21 <=30 mg/dL 11/09/2023 10:41 AM AIRPORT SECURITY SCREENER [facility] PROVIDER ORDERED STATUS RANDOM 11/09/2023 10:41 AM AIRPORT SECURITY SCREENER [facility] Blood BLOOD SPECIMEN / Unknown Butterfly / Unknown 11/08/2023 3:05 PM AIRPORT SECURITY SCREENER 11/08/2023 3:08 PM AIRPORT SECURITY SCREENER Preet Huff MD CHEMISTRY [facility] [address] [place] [address], * COLONOSCOPY SCREENING (09/24/2013 12:00 AM AIRPORT SECURITY SCREENER) Narrative 09/24/2013 12:00 AM AIRPORT SECURITY SCREENER Procedure Note Scanner - 09/24/2013 12:00 AM CST Preet Huff MD GI PROCEDURE O RD * ANTI HCV (03/04/2009 10:05 AM CDT) ANTI HCV Non-reacti ve [facility] Blood specimen (specimen) BLOOD SPECIMEN / Unknown 03/04/2009 10:05 AM CDT 03/04/2009 9:57 AM CDT Alfredo Juarez MD SEND OUTS [facility] INTERNAL ZIP [address] [place] [address] * ANTI HIV 1/2 (03/04/2009 10:05 AM CDT) ANTI HIV 1/2 Non-reacti ve [facility] Blood specimen (specimen) BLOOD SPECIMEN / Unknown 03/04/2009 10:05 AM CDT 03/04/2009 9:57 AM CDT Alfredo Juarez MD SEND OUTS [facility] INTERNAL ZIP [address] [place] [id number] from Last 3 Months or Most Recently Relevant to Health Maintenance Advance Directives Documents on File Type Date Recorded Patient Color Matcher Expl anation Power of Professor Of Oceanography 09/04/2014 12:00 AM 07/2009 * Full Code [...] 5:57 PM 03/16/2009 5:32 PM Care Teams Military Technician Relationship Specialty Start Date End Date Preet Huff MD [address] [place] [address] PCP - General 12/02/06
--- OUTSIDE RECORDS SUMMARY | 2024-08-31 13:39 | XMS_ITS | Referral Summary ---
Author Organization [place] Address [address] [facility] [place] [address] Care Team Providers Care Vat House Supervisor Name Role Phone Preet Huff Hans Primary Care Provider [phone] Encounters Date Type Department Care Team Description 08/27/2024 [facility] [place] [address] [place] [phone] Jaxon Saravia MD Clinic Care Coordination - Follow-up (Follow up after ED visit 08/24/2024. 05/28/[address] Saravia. 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) Discharge Disposition: Long-Term Facility 08/24/2024 Travel 07/12/2024 Travel 07/12/2024 12:18 AM CDT - 07/12/2024 7:24 AM CDT Emergency [facility] Emergency Dept [address] [place] [address] Avery Fernando MD Richardson, Elizabeth, MD Transient [...] once daily with a snack Active B Objtjvg-N-Lgzmi Acid (WESCAPS PO) Take 1 capsule by [...] facility, or couch-surfing.) Patient unable to answer 08/24/2024 [...] on file Legal Sex Male 5:12 AM MGMT ANALYST Gender Identity Male 12/05/2017 10:39 AM MGMT ANALYST Sexual Orientation Not on file Last Filed Vital Signs Vital Sign Reading Time Taken Comments Blood Pressure 105/48 08/25/2024 1:00 PM MGMT ANALYST Pulse 66 08/25/2024 1:00 PM MGMT ANALYST Temperature 36.5 C (97.7 F) 08/25/2024 1:00 PM MGMT ANALYST Respiratory Rate 16 08/25/2024 1:00 PM MGMT ANALYST Oxygen Saturation 100% 08/25/2024 1:00 PM MGMT ANALYST Inhaled Oxygen Concentration - - Weight 88 kg (194 lb 1.6 oz) 08/25/2024 8:30 AM MGMT ANALYST Height 162.6 cm (5' 4) 08/24/2024 5:27 PM MGMT ANALYST Body Mass Index 33.32 08/24/2024 5:27 PM MGMT ANALYST Plan of Treatment Upcoming Encounters Date Type Department Care Team (Late st Contact Info) Description 09/27/2024 1:00 PM MGMT ANALYST Office Visit [facility] [place] [address] [place] [phone] Jaxon Saravia MD [address] [place] [address] Medical Devices Implanted Type Area Type Mapper Device Identifier Shelf Expiration Date Model / Serial / Lot Graft Patch Vasc Xenosure Biologic 0.8x08cm 0.8p8 Implanted:Qty: 1 on 12/16/2017 by Jaxon Saravia MD at [facility] Bone/Tis rocco/Biol ogic Left: Iliac/Fem orals LEMAITRE VASCULAR IN 06/06/2023 0.8P8 / / [id number] Graft Pericardium 8x0.8cm Vascu-Guard Implanted:Qty: 1 on 10/20/2011 at [facility] Right: Arm [employer] 01/16/2016 [id number] / / [id number] Femoral Popliteal Artery Implanted:Qty: 1 on 05/03/2012 by Jaxon Saravia MD at [facility] Right: Groin 12/07/2021 [id number] / [id number] / Description:CADAVER FEMORAL ARTERY RINSED IN A AND B SOLUTION: A SOLUTION LOT #[id number] EXPIRATION DATE 01/09/2014 B SOLUTION LOT #[id number] EXPIRATION DATE 11/15/2013 Graft Propaten Taper [id number] Implanted:Qty: 1 on 08/09/2012 by Jaxon Saravia MD at [facility] Right: Leg 10/24/2015 [id number] / / [id number] Graft Propaten Taper [id number] Implanted:Qty: 1 on 06/20/2013 by Jaxon Saravia MD at [facility] Left: Groin [employer] 02/07/2017 [id number] / / [id number] Graft Pericardium 8x0.8cm Vascu-Guard Implanted:Qty: 1 on 05/08/2014 by Jaxon Saravia MD at [facility] Left: Leg [employer] 11/26/2018 [id number] / PN# [id number] / [id number] Procol Vascular Bioprosthesis Implanted:Qty: 1 on 07/02/2015 by Jaxon Saravia MD at [facility] Left: Groin 12/16/2018 [id number] -N / [id number] / Procol Vascular Bioprosthesis Implanted:Qty: 1 on 08/13/2015 by Jaxon Saravia MD at [facility] Left: Groin 12/16/2018 [id number] -N / [id number] / Graft Vasc Bioprosthesis Procol [id number] Implanted:Qty: 1 on 03/05/2016 by Jaxon Saravia MD at [facility] Left: Leg LEMAITRE VASCULAR IN 02/03/2019 [id number] -[id number] / [id number] / Procedures Procedure Name Priority Date/Time Associated Diagnosis Comments CBC WITH PLATELETS & DIFFERENTIAL STAT 08/25/2024 6:52 AM MGMT ANALYST CBC WITH PLATELETS AND DIFFERENTIAL STAT 08/25/2024 6:52 AM MGMT ANALYST INR Routine 08/25/2024 6:52 AM MGMT ANALYST BASIC METABOLIC PANEL Routine 08/25/2024 6:52 AM MGMT ANALYST US EXTREMITY ARTERIAL VENOUS DIALYSIS ACCESS GRAFT STAT 08/24/2024 3:25 PM MGMT ANALYST BASIC METABOLIC PANEL STAT 08/24/2024 12:50 PM MGMT ANALYST CBC WITH PLATELETS & DIFFERENTIAL STAT 08/24/2024 10:43 AM MGMT ANALYST CBC WITH PLATELETS AND DIFFERENTIAL STAT 08/24/2024 10:43 AM MGMT ANALYST INR STAT 08/24/2024 10:43 AM MGMT ANALYST TROPONIN T, HIGH SENSITIVITY STAT 07/12/2024 4:23 [...] CDT LIPID PROFILE STAT 12/07/2017 12:34 PM MGMT ANALYST 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 WBC Count 2.7(L) 4.0 - 11.0 10e3/uL 08/25/2024 6:58 AM MGMT ANALYST [facility] RBC Count 4.40 4.40 - 5.90 10e6/uL 08/25/2024 6:58 AM MGMT ANALYST [facility] Hemoglobin 11.4(L) 13.3 - 17.7 g/dL 08/25/2024 6:58 AM MGMT ANALYST [facility] Hematocrit 36.5(L) 40.0 - 53.0 % 08/25/2024 6:58 AM MGMT ANALYST [facility] MCV 83 78 - 100 fL 08/25/2024 6:58 AM MGMT ANALYST [facility] MCH 25.9(L) 26.5 - 33.0 pg 08/25/2024 6:58 AM MGMT ANALYST [facility] MCHC 31.2(L) 31.5 - 36.5 g/dL 08/25/2024 6:58 AM MGMT ANALYST [facility] RDW 18.6(H) 10.0 - 15.0 % 08/25/2024 6:58 AM MGMT ANALYST [facility] Platelet Count 112(L) 150 - 450 10e3/uL 08/25/2024 6:58 AM MGMT ANALYST [facility] % Neutrophils 56 % 08/25/2024 6:58 AM MGMT ANALYST [facility] % Lymphocytes 24 % 08/25/2024 6:58 AM MGMT ANALYST [facility] % Monocytes 16 % 08/25/2024 6:58 AM MGMT ANALYST [facility] % Eosinophils 3 % 08/25/2024 6:58 AM MGMT ANALYST [facility] % Basophils 0 % 08/25/2024 6:58 AM MGMT ANALYST [facility] % Immature Granulocytes 0 % 08/25/2024 6:58 AM MGMT ANALYST [facility] NRBCs per 100 WBC 0 <1 /100 11/16/2 024 6:58 AM MGMT ANALYST [facility] Absolute Neutrophils 1.5(L) 1.6 - 8.3 10e3/uL 08/25/2024 6:58 AM MGMT ANALYST [facility] Absolute Lymphocytes 0.7(L) 0.8 - 5.3 10e3/uL 08/25/2024 6:58 AM MGMT ANALYST [facility] Absolute Monocytes 0.4 0.0 - 1.3 10e3/uL 08/25/2024 6:58 AM MGMT ANALYST [facility] Absolute Eosinophils 0.1 0.0 - 0.7 10e3/uL 08/25/2024 6:58 AM MGMT ANALYST [facility] Absolute Basophils 0.0 0.0 - 0.2 10e3/uL 08/25/2024 6:58 AM MGMT ANALYST [facility] Absolute Immature Granulocytes 0.0 <=0.4 10e3/uL 08/25/2024 6:58 AM MGMT ANALYST [facility] Absolute NRBCs 0.0 10e3/uL 08/25/2024 6:58 AM MGMT ANALYST LABORATORY Blood STRUCTURE OF RIGHT HAND / Unknown Venipuncture / Unknown 08/25/2024 6:52 AM MGMT ANALYST 08/25/2024 6:56 AM MGMT ANALYST Kolby Gandara MD LAB - BLOOD ORDERABLES Final Result [facility] Lab [address] Lab (1st floor, no room number) [place] [address] * (ABNORMAL) INR (08/25/2024 6:52 AM MGMT ANALYST) Only the most recent of3 resultswithin the time period is included. INR 2.01(H) 0.85 - 1.15 08/25/2024 7:07 AM MGMT ANALYST LABORATORY Blood STRUCTURE OF RIGHT HAND / Unknown Venipuncture / Unknown 08/25/2024 6:52 AM MGMT ANALYST 08/25/2024 6:56 AM MGMT ANALYST Kolby Gandara MD LAB - BLOOD ORDERABLES Final Result [facility] Lab [address] Lab (1st floor, no room number) [place] [address], [facility] * (ABNORMAL) Basic metabolic panel (08/25/2024 6:52 AM MGMT ANALYST) Only the most recent of3 resultswithin the time period is included. Sodium 128(L) 135 - 145 mmol/L 08/25/2024 7:18 AM [facility] Potassium 4.3 3.4 - 5.3 mmol/L 08/25/2024 7:18 AM [facility] Chloride 88(L) 98 - 107 mmol/L 08/25/2024 7:18 AM [facility] Carbon Dioxide (CO2) 23 22 - 29 mmol/L 08/25/2024 7:18 AM [facility] Anion Gap 17(H) 7 - 15 mmol/L 08/25/2024 7:18 AM [facility] Urea Nitrogen 57.7(H) 8.0 - 23.0 mg/dL 08/25/2024 7:18 AM [facility] Creatinine 11.75(H) 0.67 - 1.17 mg/dL 08/25/2024 7:18 AM [facility] GFR Estimate 4(L) >60 mL/min/1. 73m2 08/25/2024 7:18 AM [facility] Comment:eGFR calculated 2020 CKD-EPI equation. Calcium 8.7(L) 8.8 - 10.4 mg/dL 08/25/2024 7:18 AM [facility] Comment:Reference intervals for this test were updated on 04/24/2024 to reflect our healthy population more accurately. There may be differences in the flagging of prior results with similar values performed with this method. Those prior results can be interpreted in the context of the updated reference intervals. Glucose 92 70 - 99 mg/dL 08/25/2024 7:18 AM [facility] Blood STRUCTURE OF RIGHT HAND / Unknown Venipuncture / Unknown 08/25/2024 6:52 AM MGMT ANALYST 08/25/2024 6:56 AM MGMT ANALYST us Kolby Gandara MD LAB - BLOOD ORDERABLES Final Result LABORATORY [facility] Lab [address] [facility] [place] [facility] Lab (1st floor, no room number) [place] [address], [facility] * US Ext Arterial Venous Dialys Acs Graft (08/24/2024 3:25 PM MGMT ANALYST) Anatomical Region Laterality Modality Vascular, Abdomen/Pelvis Ultraso und Impressions 08/24/2024 4:23 PM MGMT ANALYST IMPRESSION: 1. Patent arteriovenous fistula. 2. 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 [facility] REINOSO DO Narrative 08/24/2024 4:23 PM MGMT ANALYST US EXTREMITY ARTERIAL VENOUS DIALYSIS ACCESS GRAFT [...] - BLOOD ORDERABLES Final Res ult LABORATORY [facility] Acute [facility] Lab [address] [facility] Lab (1st floor, no room number) [place] [address] * XR Chest 2 Views (07/12/2024 3:15 AM CDT) Anatomical Region Laterality Modality Chest Digital Radiogra phy 07/12/2024 3:15 AM CDT Impressions 07/12/2024 3:18 AM CDT IMPRESSION: Low lung volumes but the lungs appear clear. Normal heart size and pulmonary vascularity. No pleural fluid or pneumothorax. Narrative 07/12/2024 3:18 AM CDT EXAM: XR CHEST 2 VIEWS LOCATION: [facility] DATE: 07/12/2024 INDICATION: ams COMPARISON: 03/11/2024. Procedure Note Pavan Sanon MD - 07/12/2024 EXAM: XR CHEST 2 VIEWS LOCATION: [facility] DATE: 07/12/2024 INDICATION: ams COMPARISON: 03/11/2024. 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 NECK CTA: 1. Normal configuration [...] CTA HEAD NECK W CONTRAST LOCATION: [facility] DATE: 07/12/2024 INDICATION: ams and weakness. [...] CTA HEAD NECK W CONTRAST LOCATION: [facility] DATE: 07/12/2024 INDICATION: ams and weakness. [...] vascular malformation involving the arteries of the [place] of[place]. NECK CTA: 1. Normal configuration of [...] 1:49 am on 07/12/2024. Avery Fernando MD [facility] ORDERABLES Final Result * CTA Head [...] vascular malformation involving the arteries of the squax[place] of [place]. NECK CTA: 1. Normal configuration [...] CTA HEAD NECK W CONTRAST LOCATION: [facility] DATE: 07/12/2024 INDICATION: ams and weakness. [...] CTA HEAD NECK W CONTRAST LOCATION: [facility] DATE: 07/12/2024 INDICATION: ams and weakness. [...] vascular malformation involving the arteries of the squ[place] of[place]. NECK CTA: 1. Normal configuration of [...] 1:49 am on 07/12/2024. Avery Fernando MD [facility] ORDERABLES Final Result * CT Head [...] vascular malformation involving the arteries of the squax[place] of [place]. NECK CTA: 1. Normal configuration [...] CTA HEAD NECK W CONTRAST LOCATION: [facility] DATE: 07/12/2024 INDICATION: ams and weakness. [...] CTA HEAD NECK W CONTRAST LOCATION: [facility] DATE: 07/12/2024 INDICATION: ams and weakness. [...] vascular malformation involving the arteries of the squax[place] of[place]is. NECK CTA: 1. Normal configuration of [...] Top Tube (07/12/2024 1:14 AM CDT) Pathologist [facility] Hold Specimen JIC 07/12/2024 2:31 AM CDT [facility] Blood BLOOD SPECIMEN / Unknown Venipuncture / Unknown 07/12/2024 1:14 AM CDT 07/12/2024 1:23 AM CDT Avery Fernando MD LAB - BLOOD ORDERABLES Final Res ult LABORATORY [facility] Acute [facility] Lab [address] Lab (1st floor, no room number) [place] [address], [facility] * Adult Type and Screen (07/12/2024 1:14 AM CDT) ABO/RH(D) O POS 07/12/2024 1:01 AM CDT [facility] BLOOD BANK Antibody Screen Negative Negative 07/12/2024 1:01 AM CDT RH BLOOD BANK SPECIMEN EXPIRATION DATE [id number] 07/12/2024 1:01 AM CDT [facility] B[facility] B[facility] Blood BLOOD SPECIMEN / Unknown Venipuncture / Unknown 07/12/2024 1:14 AM CDT 07/12/2024 1:23 AM CDT Avery Fernando MD LAB - BLOOD BANK TEST ORDER Summer l Result BLOOD BANK [address] [place] [address] * Lactic acid whole blood (07/12/2024 1:14 AM CDT) Lactic Acid 0.8 0.7 - 2.0 mmol/L 07/12/2024 1:27 AM CDT LABORATORY Blood BLOOD SPECIMEN / Unknown Venipuncture / Unknown 07/12/2024 1:14 AM CDT 07/12/2024 1:23 AM CDT Avery Fernando MD LAB - BLOOD ORDERABLES Final Res ult Performing Organization Address City/[facility]/ZIP Co de Phone Number LABORATORY [facility] [address] [facility], no room number) [place] [address] * Hepatic function panel (07/12/2024 1:14 [...] BLOOD ORDERABLES Final Res ult [facility]ORATORY [facility] Lab [address] Lab (1st floor, no room number) [place] [address] * Blood Culture Peripheral Blood (07/12/2024 1:14 AM CDT) Culture No Growth 07/17/2024 4:46 AM CDT [facility] Blood BLOOD SPECIMEN / Unknown Venipuncture / Unknown 07/12/2024 1:14 AM CDT 07/12/2024 1:23 AM CDT Avery Fernando MD LAB - MICRO GENERAL ORDERABLES F inal Result [facility] Inf. Diseases Di[facility]. Lab [address] [facility] [place] [address], [facility] * (ABNORMAL) Glucose by meter (07/12/2024 1:13 AM CDT) GLUCOSE BY METER POCT 133(H) 70 - 99 mg/dL 07/12/2024 1:20 AM CDT [facility] POC Blood, venous BLOOD SPECIMEN / Unknown 07/12/2024 1:13 AM CDT 07/12/2024 1:20 AM CDT Avery Fernando MD LAB - BEAKER POCT Final Result [facility] POC [facility] Acute [facility] Lab [address] Lab (1st floor, no room number) [place] [address], [facility] * EKG 12-lead, tracing only (07/12/2024 12:24 AM CDT) Systolic Blood Pressure mmHg RADIOLOGY RESULTS Diastolic Blood Pressure mmHg RADIOLOGY RESULTS Ventricular Rate 65 BPM RAD IOLOGY RESULTS Atrial Rate 65 BPM RADIOLOG Y RESULTS MO Interval 234 ms RADIOLOG Y RESULTS QRS Duration 112 ms RADIOLO GY RESULTS QT 430 ms RADIOLOGY RESULTS QTc 447 ms RADIOLOGY RESULTS P [place] 53 degrees RADIOLOGY RESULTS R AXIS 10 degrees RADIOLOGY RESULTS T [place] 51 degrees RADIOLOGY RESULTS Interpretation ECG Sinus rhythm with 1st degree A-V block Otherwise normal ECG When compared with ECG of 23-May-2024 17:08, Criteria for Septal infarct are no longer Present Unconfirmed report - interpretation of this ECG is computer generated - see medical record for final interpretation Confirmed by - EMERGENCY ROOM, PHYSICIAN ([id number]), film or videotape editor YISSEL VELASQUEZ ([id number]) on 07/12/2024 6:51:31 AM RADIOLOGY RESULTS 07/12/2024 [...] LAB - BLOOD ORDERABLES Fin al Result [facility] Lab [address] [facility] Lab (1st floor, no room number) [place] [address], [facility] * COLONOSCOPY (03/08/2024 1:04 PM CDT) [facility] Signature COLONOSCOPY [facility] Patient Name: Herminio Victor Procedure Date: [...] continuously. The Olympus Adult Colonoscope, Model # CF-BE428B, Censitrac # [id number] was introduced through the anus and advanced [...] - STOOLS ORDERABLES Final Re sult LABORATORY [facility] Lab [address] Lab (1st floor, no room number) [place] [address] * Hepatitis C (HIM External Result) (01/04/2022 12:00 PM CDT) Hep C HIM See Scanned Document EXTERNAL LAB Comment:Nonreactive 01/04/2022 12:0 0 PM CDT Narrative EXTERNAL LAB - 01/04/2022 12:00 PM CDT LAB RESULT [facility] [address] [place] [address] us Provider Outside LAB - HIM EXTERNAL RESULT Final Result Performing Organization Address [facility] Co de Phone Number EXTERNAL LAB External Lab * (ABNORMAL) Lipid panel (12/07/2017 12:34 PM MGMT ANALYST) Cholesterol 115 <200 mg/dL 12/07/2017 1:27 PM [facility] Triglycerides 84 <150 mg/dL 12/07/2017 1:27 PM [facility] HDL Cholesterol 37(L) >39 mg/dL 8 1:27 PM [facility] LDL Cholesterol Calculated 61 <100 mg/dL 12/07/2017 1:27 PM [facility] Comment:Desirable: <100 mg/d l Non HDL Cholesterol 78 <130 mg/dL 12/07/2017 1:27 PM [facility] Blood specimen (specimen) 12/07/2017 12:34 PM MGMT ANALYST 12/07/2017 12:58 PM MGMT ANALYST us Michele Fuentes MD LAB - BLOOD ORDERABLES Final Result [facility] [address] [place] [address], [facility] [phone] from Last 3 Months or Most Recently Relevant to Health Maintenance Insurance [place] Advance Directives For more information, please contact: [phone] * Full Code (Latest Code Status on [...] patie nt/ legal decision maker Care Teams Vat House Supervisor Relationship Specialty Start Date End Date Preet Huff PCP - General 06/24/11
--- OUTSIDE RECORDS SUMMARY | 2024-08-31 13:39 | XMS_ITS | Clinical Summary ---
Author Organization [facility] Address [address] [place] [id number] Phone Care Team Providers Care Demographic Analyst Name Role Phone Preet Huff MD Primary Care Provider [phone] Medications Medication Sig Dispensed Refills Start Date End Date Status cholecalciferol (VITAMIN D-3) 1000 units tablet 1 tab qd 04/02/2015 Active B Complex Vitamins (VITAMIN B COMPLEX) tablet 1 tab po daily 12/08/2012 Act bill bisacodyl (DULCOLAX) 5 MG EC tablet 2 tabs po bid 04/02/2015 Active B Vrqmecd-M-Skxyz Acid (RENAL) 1 MG capsule 1 cap [...] 1982 Influenza Vaccine (#1) 2024 Care Teams Demographic Analyst Relationship Specialty Start Date End Date Preet Huff MD [address] [place] [address] PCP - General 10/31/19
--- OUTSIDE RECORDS SUMMARY | 2024-08-31 13:39 | XMS_ITS | Encounter Summary ---
Author Organization [facility] Address [address] [facility] [place] [address] Care Team Providers Care Embossing Press Operator Apprentice Name Role Phone HuffPreet cool Primary Care Provider [phone] Encounter Details Date Type Department Care Team [...] on file Legal Sex Male 5:12 AM WINE BLENDER Gender Identity Male 12/05/2017 10:39 AM WINE BLENDER Sexual Orientation Not on file documented as of this encounter Plan of Treatment Upcoming Encounters Date Type Department Care Team (Late st Contact Info) Description 09/27/2024 1:00 PM WINE BLENDER Office Visit [facility] [address] [place] [phone] Jaxon Saravia MD [address] [place] [id number] documented as of this encounter Visit Diagnoses Not on filedocumented in this encounter Care Teams Embossing Press Operator Apprentice Relationship Specialty Start Date End Date Preet Huff PCP - General 06/24/11 documented as of this encounter
--- OUTSIDE RECORDS SUMMARY | 2024-08-31 13:39 | XMS_ITS | Encounter Summary ---
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) [facility] Observation Dept [address] [place] [address] Phone: tel: Referral ID Status Reason Start Date Expiration Date Visits Re quested Visits Authorized [id number] 1 1 Encounter Details Date Type Department Care Team (Late st Contact Info) Description 08/24/2024 10:01 AM [employer] - 08/25/2024 3:22 PM [employer] Emergency [facility] Observation Dept [address] [place] [address] Mateo Gonzalez MD [facility] [address] [place], [place] [address] Martin Sanchez MD [facility] [address] [place], [place] [id number] Kolby Gandara MD [address] [place] [address] Supratherapeutic INR; 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) Discharge Disposition: Detention Facility Social History Tobacco Use Types Packs/Day [...] on file Legal Sex Male 5:12 AM [employer] Gender Identity Male 12/05/2017 10:39 AM [employer] Sexual Orientation Not on file documented as of this encounter Last Filed Vital Signs Vital Sign Reading Time Taken Comments Blood Pressure 105/48 08/25/2024 1:00 PM [employer] Pulse 66 08/25/2024 1:00 PM [employer] Temperature 36.5 C (97.7 F) 08/25/2024 1:00 PM [employer] Respiratory Rate 16 08/25/2024 1:00 PM [employer] Oxygen Saturation 100% 08/25/2024 1:00 PM [employer] Inhaled Oxygen Concentration - - Weight 88 kg (194 lb 1.6 oz) 08/25/2024 8:30 AM [employer] Height 162.6 cm (5' 4) 08/24/2024 5:27 PM [employer] Body Mass Index 33.32 08/24/2024 5:27 PM [employer] documented in this encounter Discharge Summaries * Jacob Butler DO - 08/25/2024 3:22 PM CST [facility] Hospitalist Discharge Summary Date of Admission: 08/24/2024 [...] test are needed. Discharge Disposition Discharged to half-way Condition at discharge: Stable Hospital Course Herminio Victor is a 59 year old male with cognitive impairment (lives at home, has COMMUNICATIONS ASSOCIATE), ESRD on HD (MWF), diabetes (listed but [...] minutes discharging this patient. Jacob Butler DO [facility] OBSERVATION DEPT [address] [facility] [address] Physical Exam Vital Signs: Temp: 97.7 ??F [...] mg by mouth at bedtime., Historical B Crqwrtd-N-Qbvng Acid (WESCAPS PO) Take 1 capsule by [...] Reason for Stopping: Allergies No Known Allergies [employer] documented in this encounter Medications at Time of Discharge atorvastatin (LIPITOR) 20 MG tablet Take 20 mg by mouth at bedtime. B Dsvxznr-Z-Arape Acid (WESCAPS PO) Take 1 capsule by [...] I discussed his HD prescription with our disaster recovery coordinator (Bella) at the bedside. Ultrasound of the [...] 2 tablet Oral BID Kolby Gandara MD 2 tablet at 08/25/24 0755 [...] medications, labs and imaging. Job Her MD [facility] - Nephrology Office phone :[phone] Pager: [phone] [employer] * Bella Bradley RN - 08/25/2024 10:28 [...] to treatment See Adult Hemodialysis flowsheet in [facility] for further details and post assessment. Machine water alarm in place and functioning. Transducer pods intact and checked every 15min. Pt assisted with repositioning throughout dialysis treatment. Pt returned via wheelchair. Chlorine/Chloramine water system checked every 4 hours. Outpatient Dialysis at [facility] Post treatment report given to Jenny Bocanegra RN regarding 2.2L of fluid removed, last BP 105/48. Please remove patient dressing on AVF and AVG needle sites 24 hours after dialysis. If leaking occurs please apply a Band-Aid. Gavin Bradley RN [employer] * Tabby Franklin RN - 08/25/2024 4:17 AM CST PRIMARY DIAGNOSIS: ESRD OUTPATIENT/OBSERVATION GOALS TO BE MET BEFORE DISCHARGE: ADLs back to baseline: No Activity and level of assistance: Ax1 gb walker Pain status: Pain free. Return to near baseline physical activity: No Tradeshow Worker Nurse Safe discharge environment identified: Yes Barriers to discharge: Yes Entered by: Tabby Franklin RN 08/25/2024 4:17 AM Please review provider order for any additional goals. Nurse to notify provider when observation goals have been met and patient is ready for discharge. [employer] * Tabby Franklin RN - 08/25/2024 12:53 AM CST PRIMARY DIAGNOSIS: ESRD OUTPATIENT/OBSERVATION GOALS TO BE MET BEFORE DISCHARGE: ADLs back to baseline: No Activity and level of assistance: Ax1 gb walker Pain status: Pain free. Return to near baseline physical activity: No Tradeshow Worker Nurse Safe discharge environment identified: Yes Barriers to discharge: Yes Entered by: Tabby Franklin RN 08/25/2024 12:54 AM Please review provider order for any additional goals. Nurse to notify provider when observation goals have been met and patient is ready for discharge. [employer] * Graham Enciso RT - 08/24/2024 10:12 [...] Enciso, RT on 08/24/2024 at 10:13 PM [employer] documented in this encounter H&P Notes * Kolby Gandara MD - 08/24/2024 3:41 PM CST [facility] History and Physical - Hospitalist Service Date of Admission: 08/24/2024 Assessment & Plan Herminio Victor is a 59 year old male with cognitive impairment (lives at home, has COMMUNICATIONS ASSOCIATE), ESRD on HD (MWF), diabetes (listed but [...] Legally blind Full code: reviewed paperwork from [facility] where his code status is listed Called [...] Anticipated Tomorrow Kolby Gandara MD Hospitalist Service [facility] Securely message with [employer] (more info) Text page via [facility] Paging/Directory Chief Complaint Bleeding from fistula History is obtained from the patient History of Present Illness Herminio Victor is a 59 year old male with cognitive impairment (lives at home, has COMMUNICATIONS ASSOCIATE), ESRD on HD (MWF), diabetes (listed but does not appear to actually have diabetes), CVA, legally blind, HLP, SHIRLEY (on CPAP), obesity, HTN, DVT (06/2011) admitted on 08/24/2024 after being set from [facility] due to bleeding from his thigh fistula. [...] new complaints. He was sent from his [facility] dialysis center today because he was bleeding [...] Last Dose Informant Patient Reported? Taking? B Vewwqih-G-Yxuva Acid (WESCAPS PO) 08/23/2024 Yes Yes Sig: [...] Pulse: 79 Resp: 16 SpO2: 94 % M6Zlorah: None (Room air) Weight: 0 lbs 0 [...] up to 3.0 cm, previously 2.0 cm. [employer] documented in this encounter Consult Notes * Barbara Kirkpatrick S, COMPLETIONS ENGINEER - 08/25/2024 1:55 PM CSTAssociated Order(s): CARE [...] Communication Assessment Patient's communication style: spoken language (Tristanian or Bilingual) Hearing Difficulty or Deaf: no [...] Home Health Aid Community Resources: County Worker, COMMUNICATIONS ASSOCIATE, Transportation Services, OP Dialysis (Mom's Meals) Equipment [...] Depression: Not at risk (05/22/2020) [facility] PHQ-2 PHQ-2 Score: 0 Housing Stability: Unknown (08/24/2024) Housing Stability Do you have housing? : Patient unable to answer Are you worried about losing your housing?: Patient unable to answer Tobacco Use: Medium Risk (06/07/2024) Received from [facility] Patient History Smoking Tobacco Use: Never Smokeless [...] Social Connections: Socially Integrated (03/20/2024) Received from [facility] Social Connections Do you often feel lonely [...] No Current Concerns Values/Beliefs: Spiritual, Cultural Beliefs, Mandaen Practices, Values that affect care: no Values/Beliefs Comment: Restoration Discussed ???Partnership in Safe Discharge Planning??? document [...] his chart) and receives 8 hours of COMMUNICATIONS ASSOCIATE with nurses that come in every 3 months. Arianna stated she is in the process of becoming pt's legal guardian but does not have paperwork to send us because it hasn't officially gone through the court yet. Arianna's sister, pt's aunt, is the POA. Pt's mother, Arianna told SW that he uses [place] transportation and requested we arrange for them to pick him up if medically ready for discharge today. Next Steps: SW will arrange transportation for discharge and remain available for any other needs that arise before discharge. Care Management Discharge Note Discharge Date: 08/25/2024 Discharge Disposition: Home with help/services Discharge Services: COMMUNICATIONS ASSOCIATE Discharge Transportation: agency Private pay costs discussed: transportation costs PAS Confirmation Code: N/A Education Provided on the Discharge Plan: Yes Persons Notified of Discharge Plans: Patient, patient's mother Patient/Family in Agreement with the Plan: Yes Handoff Referral Completed: No, handoff not indicated or clinically appropriate Additional Information: SULY tried arranging transportation through [place] per his mother, Arianna's request but they are closedon the weekends. SW spoke with Arianna about this and informed her of the cost of a wheelchair ride through [facility]. Arianna was agreeable. SW scheduled a ride through [place] to meat pickler pt this afternoon between 1430 and 1520. BANG Barcenas Inpatient Care Coordination [facility] [phone] [employer] * Job Her MD - 08/24/2024 4:42 PM CSTAssociated Order(s): NEPHROLOGY IP CONSULT RENAL CONSULTATION NOTE REFERRING MD: Kolby Gandara MD REASON FOR CONSULTATION: ESRD HPI: 59 y.o gentleman with ESRD, who was sent in from his dialysis unit in [place] due to bleeding from his L thigh [...] file Other Topics Concern Parent/sibling w/ CABG, DE or angioplasty before 65F 55M? Not Asked [...] Social Connections: Socially Integrated (03/20/2024) Received from [facility] Social Connections Do you often feel lonely [...] access # HD tomorrow Job Her MD [facility] - Nephrology Office Pager: [phone] [employer] documented in this encounter ED Notes * Raquel Engle RN - 08/24/2024 2:10 PM CST Bed: ED23 Expected date: Expected time: Means of arrival: Comments: ED37 [employer] * Eugenia Mackay RN - 08/24/2024 1:48 PM CST [facility] ED Nurse Handoff Report ED Chief [...] bed. Lift room needed: No. Bariatric: No Appellate Court Clerk Needed: No Isolation: No. Infection: Not Applicable. [...] Nurse Name: Eugenia Mackay RN 1:48 PM [employer] * Mateo Gonzalez MD - 08/24/2024 11:15 [...] Retinopathy Sleep apnea CPAP Syncope Medications B Gzjoghr-I-Yqupb Acid (WESCAPS PO) calcium acetate (PHOSLO) 667 [...] upper and lower extremities. Normal finger-nose and fexo-sg-hbvg. Diagnostics Lab Results Labs Ordered and Resulted [...] MD Carlos Gordon Kevin, MD 08/24/24 1349 [employer] * Lisa Gill RN - 08/24/2024 10:07 AM CST Images from the original note were not included. Patient arrives via EMS from [facility] where patient was scheduled for dialysis this [...] Cognitive/Neuro/Behavioral WDL Cognitive/Neuro/Behavioral WDL X mental handicap [employer] * Lesley Avalos RN - 08/24/2024 10:01 AM CST Bed: ED37 Expected date: 08/24/24 Expected time: Means of arrival: Ambulance Comments: [place] 330 [employer] documented in this encounter Miscellaneous Notes * Plan of Care - Barbara Kirkpatrick BSW - 08/25/2024 1:57 PM CST Goal Outcome Evaluation: Plan of Care Reviewed With: parent Overall Patient Progress: improvingOverall Patient Progress: improving Outcome Evaluation: Discharge home to mother's house with COMMUNICATIONS ASSOCIATE services. [employer] * Pharmacy-Anticoagulation Service - Zuleyka Hopkins [facility] - 08/25/2024 1:22 PM [employer] Images from the original note were not [...] during the last 7 days: 5 mg [employer] * Plan of Care - Isis Bocanegra RN - 08/25/2024 12:11 PM CST PRIMARY DIAGNOSIS: bleeding, high INR OUTPATIENT/OBSERVATION GOALS TO BE MET BEFORE DISCHARGE: ADLs back to baseline: Yes Activity and level of assistance: Up with standby assistance. Pain status: Pain free. Return to near baseline physical activity: Yes Tradeshow Worker Nurse Safe discharge environment identified: No Barriers [...] 1 assist to scale and to wheelchair, [employer] * Plan of Care - Isis Bocanegra RN - 08/25/2024 7:37 AM CST PRIMARY DIAGNOSIS: INR increased OUTPATIENT/OBSERVATION GOALS TO BE MET BEFORE DISCHARGE: ADLs back to baseline: No Activity and level of assistance: Up with maximum assistance. Consider SW and/or PT evaluation. Pain status: Pain free. Return to near baseline physical activity: No Tradeshow Worker Nurse Safe discharge environment identified: No Barriers [...] diet, INR 2.01 today and no bleeding [employer] * Plan of Care - Tabby Franklin [...] Return to near baseline physical activity: No Tradeshow Worker Nurse Safe discharge environment identified: Yes Barriers [...] for Transition of Care Outcome: Not Progressing [employer] * Care Plan - Farzad Cortés RN - 08/24/2024 8:00 PM CST PRIMARY DIAGNOSIS:ESRD OUTPATIENT/OBSERVATION GOALS TO BE MET BEFORE DISCHARGE: ADLs back to baseline: No Activity and level of assistance: Ax1 walker GB Pain status: Pain free. Return to near baseline physical activity: No Tradeshow Worker Nurse Safe discharge environment identified: Yes Barriers to discharge: Yes Entered by: Farzad Cortés RN 08/24/2024 Please review provider order for any additional goals. Nurse to notify provider when observation goals have been met and patient is ready for discharge. Alert and oriented x4,VSS on RA,denies pain,tolerated renal diet,no iv access,A- V fistula left thigh intact clean and dry, [employer] * Care Plan - Farzad Cortés RN - 08/24/2024 6:00 PM CST ROOM # 222 Living Situation (if not independent, order SW consult):Home with mother Facility name: linesperson: Mother Activity level at baseline: walker Activity [...] Discussed discharge goals and expectations with patient/family. [employer] * Pharmacy-Admission Medication History - Joshua Wolf, [facility] - 08/24/2024 3:08 PM CST Pharmacist Admission Medication History Admission medication history is complete. The information provided in this note is only as accurateas the sources available at the time of the update. Information Source(s): Family member via phone Changes made to TRUCK BODY BUILDER APPRENTICE medication list: Added: atorvastatin Deleted: metoprolol Changed: phoslo, protonix, senokot Allergies reviewed with patient and updates made in EHR: yes Medication History Completed By: Joshua Wolf RPH 08/24/2024 3:08 PM TRUCK BODY BUILDER APPRENTICE Med List Medication Sig Last Dose/Taking atorvastatin (LIPITOR) 20 MG tablet Take 20 mg by mouth at bedtime. 08/23/2024 Bedtime B Jjktabm-G-Ffyxp Acid (WESCAPS PO) Take 1 capsule by [...] dose on Sat and Sun 08/23/2024 Evening [employer] documented in this encounter Plan of Treatment Upcoming Encounters Date Type Department Care Team (Late st Contact Info) Description 09/27/2024 1:00 PM [employer] Office Visit [facility] [address] [place] [phone] Rober Saravia MD [address] [place] [address] Scheduled Orders Name Type Priority Associated Diagnoses Orde r Schedule EKG 12-lead, tracing only EKG Routine Enter condition for order release in comments for 1 Occurrences starting 08/25/2024 documented as of this encounter Procedures Procedure Name Priority Date/Time Associated Diagnosis Comments CBC WITH PLATELETS AND DIFFERENTIAL STAT 08/25/2024 6:52 AM [employer] CBC WITH PLATELETS & DIFFERENTIAL STAT 08/25/2024 6:52 AM [employer] INR Routine 08/25/2024 6:52 AM [employer] BASIC METABOLIC PANEL Routine 08/25/2024 6:52 AM [employer] US EXTREMITY ARTERIAL VENOUS DIALYSIS ACCESS GRAFT STAT 08/24/2024 3:25 PM [employer] BASIC METABOLIC PANEL STAT 08/24/2024 12:50 PM [employer] CBC WITH PLATELETS AND DIFFERENTIAL STAT 08/24/2024 10:43 AM [employer] CBC WITH PLATELETS & DIFFERENTIAL STAT 08/24/2024 10:43 AM [employer] INR STAT 08/24/2024 10:43 AM [employer] documented in this encounter Results * (ABNORMAL) CBC with platelets and differential (08/25/2024 6:52 AM [employer]) WBC Count 2.7(L) 4.0 - 11.0 10e3/uL 08/25/2024 6:58 AM [employer] [facility] RBC Count 4.40 4.40 - 5.90 10e6/uL 08/25/2024 6:58 AM [employer] Hemoglobin 11.4(L) 13.3 - 17.7 g/dL 08/25/2024 6:58 AM [employer] Hematocrit 36.5(L) 40.0 - 53.0 % 08/25/2024 6:58 AM [employer] MCV 83 78 - 100 fL 08/25/2024 6:58 AM [employer] [facility] MCH 25.9(L) 26.5 - 33.0 pg 08/25/2024 6:58 AM [employer] [facility] MCHC 31.2(L) 31.5 - 36.5 g/dL 08/25/2024 6:58 AM [employer] [facility] RDW 18.6(H) 10.0 - 15.0 % 08/25/2024 6:58 AM [facility] [employer] Platelet Count 112(L) 150 - 450 10e3/uL 08/25/2024 6:58 AM [employer] % Neutrophils 56 % 08/25/2024 6:58 AM [employer] % Lymphocytes 24 % 08/25/2024 6:58 AM [facility] [employer] % Monocytes 16 % 08/25/2024 6:58 AM [facility] [employer] % Eosinophils 3 % 08/25/2024 6:58 AM [facility] [employer] % Basophils 0 % 08/25/2024 6:58 AM [facility] [employer] % Immature Granulocytes 0 % 08/25/2024 6:58 AM [employer] NRBCs per 100 WBC 0 <1 /100 024 6:58 AM [employer] Absolute Neutrophils 1.5(L) 1.6 - 8.3 10e3/uL 08/25/2024 6:58 AM [employer] Absolute Lymphocytes 0.7(L) 0.8 - 5.3 10e3/uL 08/25/2024 6:58 AM [employer] Absolute Monocytes 0.4 0.0 - 1.3 10e3/uL 08/25/2024 6:58 AM [facility] [employer] Absolute Eosinophils 0.1 0.0 - 0.7 10e3/uL 08/25/2024 6:58 AM [employer] Absolute Basophils 0.0 0.0 - 0.2 10e3/uL 08/25/2024 6:58 AM [facility] [employer] Absolute Immature Granulocytes 0.0 <=0.4 10e3/uL 08/25/2024 6:58 AM [employer] Absolute NRBCs 0.0 10e3/uL 08/25/2024 6:58 AM [facility] [employer] Blood STRUCTURE OF RIGHT HAND / Unknown Venipuncture / Unknown 08/25/2024 6:52 AM [employer] 08/25/2024 6:56 AM [employer] Kolby Gandara MD LAB - BLOOD ORDERABLES Final Result LABORATORY [facility] Acute Care Lab [address] Lab (1st floor, no room number) [place] [address] * (ABNORMAL) INR (08/25/2024 6:52 AM [employer]) Pathologist [facility] INR 2.01(H) 0.85 - 1.15 08/25/2024 7:07 AM [employer] LABORATORY Blood STRUCTURE OF RIGHT HAND / Unknown Venipuncture / Unknown 08/25/2024 6:52 AM [employer] 08/25/2024 6:56 AM [employer] Kolby Gandara MD LAB - BLOOD ORDERABLES Final Result Performing Organization Address [facility] Co de Phone Number LABORATORY [facility] Care Lab [address] Lab (1st floor, no room number) [place] [phone] * (ABNORMAL) Basic metabolic panel (08/25/2024 6:52 AM [employer]) Pathologist [facility] Sodium 128(L) 135 - 145 mmol/L 08/25/2024 7:18 AM [facility] Potassium 4.3 3.4 - 5.3 mmol/L 08/25/2024 7:18 AM [facility] Chloride 88(L) 98 - 107 mmol/L 08/25/2024 7:18 AM [facility] Carbon Dioxide (CO2) 23 22 - 29 mmol/L 08/25/2024 7:18 AM [facility] Anion Gap 17(H) 7 - 15 mmol/L 08/25/2024 7:18 AM [facility] Urea Nitrogen 57.7(H) 8.0 - 23.0 mg/dL 08/25/2024 7:18 AM [facility] Creatinine 11.75(H) 0.67 - 1.17 mg/dL 08/25/2024 7:18 AM [facility] GFR Estimate 4(L) >60 mL/min/1. 73m2 08/25/2024 7:18 AM [facility] Comment:eGFR calculated usin 2020 CKD-EPI equation. Calcium 8.7(L) 8.8 - 10.4 mg/dL 08/25/2024 7:18 AM [employer] [facility] Comment:Reference intervals for this test were updated on 04/24/2024 to reflect our healthy population more accurately. There may be differences in the flagging of prior results with similar values performed with this method. Those prior results can be interpreted in the context of the updated reference intervals. Glucose 92 70 - 99 mg/dL 08/25/2024 7:18 AM [employer] [facility] Blood STRUCTURE OF RIGHT HAND / Unknown Venipuncture / Unknown 08/25/2024 6:52 AM [employer] 08/25/2024 6:56 AM [employer] us Kolby Gandara MD LAB - BLOOD ORDERABLES Final Result [facility] LAB[facility]ATORY [facility] Acute Care Lab [address] Lab (1st floor, no room number) [place] [address] * US Ext Arterial Venous Dialys Acs Graft (08/24/2024 3:25 PM [employer]) Anatomical Region Laterality Modality Vascular, Abdomen/Pelvis Ultraso und Impressions 08/24/2024 4:23 PM [employer] IMPRESSION: 1. Patent arteriovenous fistula. 2. 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 ISIS REINOSO DO Narrative 08/24/2024 4:23 PM [employer] US EXTREMITY ARTERIAL VENOUS DIALYSIS ACCESS GRAFT [...] ISIS REINOSO DO us Mateo Gonzalez MD [facility] ORDERABLES Final Result * (ABNORMAL) Basic metabolic panel (08/24/2024 12:50 PM [employer]) Sodium 130(L) 135 - 145 mmol/L 08/24/2024 1:18 PM [employer] [facility] Potassium 3.7 3.4 - 5.3 mmol/L 08/24/2024 1:18 PM [employer] LABORATORY Chloride 90(L) 98 - 107 mmol/L 08/24/2024 1:18 PM [employer] [facility] Carbon Dioxide (CO2) 24 22 - 29 mmol/L 08/24/2024 1:18 PM [employer] [facility] Anion Gap 16(H) 7 - 15 mmol/L 08/24/2024 1:18 PM [employer] [facility] Urea Nitrogen 46.6(H) 8.0 - 23.0 mg/dL 08/24/2024 1:18 PM [employer] [facility] Creatinine 10.62(H) 0.67 - 1.17 mg/dL 08/24/2024 1:18 PM [employer] [facility] GFR Estimate 5(L) >60 mL/min/1. 73m2 08/24/2024 1:18 PM [employer] [facility] Comment:eGFR calculated us2020 CKD-EPI equation. Calcium 9.0 8.8 - 10.4 mg/dL 08/24/2024 1:18 PM [employer] [facility] Comment:Reference intervals for this test were updated on 04/24/2024 to reflect our healthy population more accurately. There may be differences in the flagging of prior results with similar values performed with this method. Those prior results can be interpreted in the context of the updated reference intervals. Glucose 105(H) 70 - 99 mg/dL 08/24/2024 1:18 PM [employer] [facility] Blood STRUCTURE OF LEFT WRIST REGION / Unknown Venipuncture / Unknown 08/24/2024 12:50 PM [employer] 08/24/2024 12:57 PM [employer] us Mateo Gonzalez MD LAB - BLOOD ORDERABLES Final Res ult [facility] LABORATORY [facility] [facility] [address] Lab (1st floor, no room number) [place] [address] * (ABNORMAL) CBC with platelets and differential (08/24/2024 10:43 AM [employer]) WBC Count 2.9(L) 4.0 - 11.0 10e3/uL 08/24/2024 10:52 AM [employer] [facility] RBC Count 4.53 4.40 - 5.90 10e6/uL 08/24/2024 10:52 AM [employer] [facility] Hemoglobin 11.6(L) 13.3 - 17.7 g/dL 08/24/2024 10:52 AM [employer] [facility] Hematocrit 37.9(L) 40.0 - 53.0 % 08/24/2024 10:52 AM [employer] [facility] MCV 84 78 - 100 fL 08/24/2024 10:52 AM [employer] [facility] MCH 25.6(L) 26.5 - 33.0 pg 08/24/2024 10:52 AM [employer] [facility] MCHC 30.6(L) 31.5 - 36.5 g/dL 08/24/2024 10:52 AM [employer] [facility] RDW 19.0(H) 10.0 - 15.0 % 08/24/2024 10:52 AM [employer] [facility] Platelet Count 127(L) 150 - 450 10e3/uL 08/24/2024 10:52 AM [employer] [facility] % Neutrophils 55 % 08/24/2024 10:52 AM [employer] [facility] % Lymphocytes 25 % 08/24/2024 10:52 AM [employer] [facility] % Monocytes 16 % 08/24/2024 10:52 AM [employer] [facility] % Eosinophils 3 % 08/24/2024 10:52 AM [employer] [facility] % Basophils 0 % 08/24/2024 10:52 AM [employer] [facility] % Immature Granulocytes 1 % 08/24/2024 10:52 AM [employer] [facility] NRBCs per 100 WBC 0 <1 /100 024 10:52 AM [employer] [facility] Absolute Neutrophils 1.6 1.6 - 8.3 10e3/uL 08/24/2024 10:52 AM [employer] [facility] Absolute Lymphocytes 0.7(L) 0.8 - 5.3 10e3/uL 08/24/2024 10:52 AM [employer] [facility] Absolute Monocytes 0.5 0.0 - 1.3 10e3/uL 08/24/2024 10:52 AM [employer] [facility] Absolute Eosinophils 0.1 0.0 - 0.7 10e3/uL 08/24/2024 10:52 AM [employer] [facility] Absolute Basophils 0.0 0.0 - 0.2 10e3/uL 08/24/2024 10:52 AM [employer] [facility] Absolute Immature Granulocytes 0.0 <=0.4 10e3/uL 08/24/2024 10:52 AM [employer] [facility] Absolute NRBCs 0.0 10e3/uL 08/24/2024 10:52 AM [employer] [facility] Blood STRUCTURE OF RIGHT HAND / Unknown Venipuncture / Unknown 08/24/2024 10:43 AM [employer] 08/24/2024 10:49 AM [employer] us Mateo Gonzalez MD LAB - BLOOD ORDERABLES Final Res ult Performing Organization Address City/State/[facility] Co de Phone Number LABORATORY [facility] Acute [facility] Lab [address] Lab (1st floor, no room number) [place] [address] * (ABNORMAL) INR (08/24/2024 10:43 AM [employer]) INR 5.82(HH) 0.85 - 1.15 08/24/2024 11:35 AM [employer] [facility] Blood STRUCTURE OF RIGHT HAND / Unknown Venipuncture / Unknown 08/24/2024 10:43 AM [employer] 08/24/2024 10:49 AM [employer] us Mateo Gonzalez MD LAB - BLOOD ORDERABLES Final Res ult [facility] Acute [facility] Lab [address] [facility] Lab (1st floor, no room number) [place] [address], [facility] documented in this encounter [...] Tue08/24/24 at 2200 $Given 08/24/2024 9:36 PM [employer] 20 mg calcium acetate (PHOSLO) capsule 1,334 mg 1,334 mg, Oral, 3 TIMES DAILY WITH MEALS, First dose on Tue08/24/24 at 1800, Best if given with meals. $Given 08/25/2024 1:59 PM [employer] 1,334 mg $Given 08/25/2024 7:55 AM [employer] 1,334 mg $Given 08/24/2024 6:21 PM [employer] 1,334 mg lidocaine 1 % 0.5 mL [...] DO NOT CRUSH. $Given 08/25/2024 7:55 AM [employer] 40 mg $Given 08/24/2024 6:21 PM [employer] 40 mg phytonadione (MEPHYTON/VITAMIN K) 1 MG/ML oral solution 5 mg 5 mg, Oral, ONCE, On Tue08/24/24 at 1155, For 1 dose $Given 08/24/2024 12:31 PM [employer] 5 mg prochlorperazine (COMPAZINE) injection 10 mg [...] for loose stools. $Given 08/25/2024 7:55 AM [employer] 2 tablets $Given 08/24/2024 6:22 PM [employer] 2 tablets sodium chloride 0.9% BOLUS 100-150 [...] Dialyzer), Dialysis $New Bag 08/25/2024 10:51 AM [employer] 200 mLs sodium chloride 0.9% BOLUS 250 mL Intravenous, 250 mL, ONCE IN DIALYSIS/CRRT, On 08/25/24 at 0800, For 1 dose, For patient prime during dialysis, Dialysis $New Bag 08/25/2024 10:51 AM [employer] 250 mLs Stop Heparin 60 minutes before end of treatment CONTINUOUS PRN, Starting on 08/25/24 at 0751, Until 08/25/24 at 1722, Stop Heparin 60 minutes before end of treatment, Dialysis documented in this encounter Active and Recently Administered Medications Times are shown in [employer]. Scheduled Medication Order 08/23/2024 08/24/2024 08/25/2024 atorvastatin [...] stools. documented in this encounter Care Teams Retail Merchandiser Technician Relationship Specialty Start Date End Date Preet Huff PCP - General 06/24/11 documented as of this encounter
--- OUTSIDE RECORDS SUMMARY | 2024-08-31 13:39 | XMS_ITS | Encounter Summary ---
Author Organization [facility] Address [address] [place] [address] Phone Care Team Providers Care Butt Trimmer Name Role Phone Preet Huff MD Primary Care Provider [phone] Reason for Visit * Reason Comments Med Refill Encounter Details Date Type Department Care Team (Late st Contact Info) Description 02/12/2021 Refill [facility] [address] [facility] [address] [place], [place] [id number] María Elena Styles PA [address] [place] [address] Social History Tobacco Use Types Packs/Day Years Used Date Smoking Tobacco: Never Assessed Sex and Gender Information Value Date Recorded Sex Assigned at Not on file Gender Identity Not on file Sexual Orientation Not on file documented as of this encounter Plan of Treatment Not on file documented as of this encounter Visit Diagnoses Not on filedocumented in this encounter Care Teams Butt Trimmer Relationship Specialty Start Date End Date Preet Huff MD [address] [place] [phone] PCP - General 10/31/19 documented as of this encounter
--- OUTSIDE RECORDS SUMMARY | 2024-08-31 13:39 | XMS_ITS | Encounter Summary ---
Author Organization [place] Address [address] [place] [place] [address] Care Team Providers Care Cigarette Package Examiner Name Role Phone HuffPreet Primary Care Provider [phone] Reason for Visit * Reason Onset Date Comments Clinic Care Coordination - Follow-up 08/27/2024 Follow up after ED visit 08/24/2024. 05/28/[address] Buenrostro. Completed US Ext Arterial Venous Dialysis Acs Graft on 08/24/2024. Encounter Details Date Type Department Care Team (Late st Contact Info) Description 08/27/2024 Telephone [facility] [place] [address] [place] [phone] Rober Buenrostro MD [address] [place] [address] Clinic Care Coordination - Follow-up (Follow up [...] [facility], or couch-surfing.) Patient unable to answer 08/24/2024 [...] on file Legal Sex Male 5:12 AM NEWS COMMENTATOR Gender Identity Male 12/05/2017 10:39 AM NEWS COMMENTATOR Sexual Orientation Not on file documented as of this encounter Miscellaneous Notes * Telephone Encounter - Rand Cifuentes - 08/30/2024 10:02 AM CST Patient is scheduled COMMENTATOR * Telephone Encounter - Andria Pardo - 08/28/2024 11:13 AM CST EDMAR for Laura to call us back to schedule: NEW VASCULAR PATIENT consult with Dr. Buenrostro Please schedule this at next available Appt note: Follow up after ED visit 08/24/2024. 05/28/[address] Buenrostro. Completed US Ext Arterial Venous Dialysis Acs Graft on 08/24/2024. COMMENTATOR * Telephone Encounter - Luz Cooney RN [...] Arterial Venous Dialysis Acs Graft on 08/24/2024. COMMENTATOR * Telephone Encounter - Andra Gilliland - 08/27/2024 9:47 AM CST [facility] Who is the name of the provider?: ROBER BUENROSTRO What is the location you see this provider at/preferred location?: [place] Person calling / Facility: Laura MCKEONrelations manager with [facility] Phone number: [phone] Nurse call back needed: Yes or route to scheduling Reason for call: Dr Buenrostro patient was last seen 12/2019. relations manager from [facility] is calling to schedule an appt. Patient was seen in ED on Tuesday/Sat for bleeding at his access site in his left thigh. Please call Laura MCKEON [phone] to schedule patient on a or as Patient has dialysisM, W, F Pharmacy location: n/a Outside Imaging: n/a Can we leave a detailed message on this number? YES 08/27/2024, 9:47 AM COMMENTATOR documented in this encounter Plan of Treatment Upcoming Encounters Date Type Department Care Team (Late st Contact Info) Description 09/27/2024 1:00 PM NEWS COMMENTATOR Office Visit [facility] [place] [address] [phone] Rober Buenrostro MD [address] [place] [id number] documented as of this encounter Visit Diagnoses Not on filedocumented in this encounter Care Teams Cigarette Package Examiner Relationship Specialty Start Date End Date Preet Huff PCP - General 06/24/11 documented as of this encounter
--- OUTSIDE RECORDS SUMMARY | 2024-08-31 13:40 | XMS_ITS | Encounter Summary ---
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 Diagnoses: None MIPS None MDM [...] Expected time: Means of arrival: Ambulance Comments: Serena 332 documented in this encounter Miscellaneous Notes * Plan of Care - Rand Ochoa OTR - 05/30/2024 5:21 PM CDT Occupational Therapy Discharge Summary Reason for therapy discharge: Discharged to home with home therapy. Progress towards therapy goal(s). See goals on Care Plan in [facility] electronic health record for goal details. Goals partially met. Barriers to achieving goals: discharge from facility. Therapy recommendation(s): Continued therapy is recommended. Rationale/Recommendations: Patient appears safe and able todischarge home with intermittent assist from family with higher level IADLS (just like baseline). Pt wouldbeenfit from HHOT to progress ADL tolerance. Pt not seen by writer producer on this date, note written based on [...] mobility. * Pharmacy-Anticoagulation Service - Joni Steel [facility] - 05/30/2024 3:00 PM CDT Images from the original note were not included. 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 Pertinent assessments: Assumed cares @ [phone].Disoriented to situation and time. VSS on RA. [...] per tolerance * Plan of Care - Edei Pack RN - 05/27/2024 2:19 PM CDT [...] Flowsheet Documentation Taken 05/27/2024919 by Edie Pack RNcompatibility test engineer Interventions: declines Goal: Readiness for Transition of [...] documentation flowsheets. Pertinent assessments: Assumed cares @ [phone].Disoriented to time and situation. VSS on RA. [...] bedrest * Pharmacy-Anticoagulation Service - Luis Collado [facility] - 05/26/2024 4:50 PM CDT Clinical Pharmacy - Warfarin Dosing Consult Pharmacy has been consulted to manage this patient???s warfarin therapy. Indication: DVT/PE Prophylaxis Therapy Goal: INR 2-3 Warfarin Prior to Admission: Yes Warfarin PATCH WORKER Regimen: 5 mg M-F and No [...] WOC,Urology,neph and CC following. Bedside Nurse: Jessica Pza RN Plan of Care Reviewed With: patient [...] * Pharmacy-Vancomycin Dosing Service - Chucho Zuluaga [facility] - 05/25/2024 3:31 PM CDT Pharmacy Vancomycin [...] Recent Flowsheet Documentation Taken 05/24/20242119 by Marce eLon RN Moisture Interventions: No brief in bed [...] shift note. Outcome: Progressing Flowsheets (Taken 05/24/2024 2679) Outcome Evaluation: Scrotal dressing changed twice. Did [...] member and Thelma (aunt) via phone and [phone] Pertinent Information: outside meds--none added Changes made to PATCH WORKER medication list: Added: none Deleted: norvasc, lipitor, Changed: protonix Allergies reviewed with patient and updates made in EHR: yes Medication History Completed By: Graham Joseph RPH 05/23/2024 9:51 PM PATCH WORKER Med List Medication Sig Last Dose B Qjwgeav-C-Zpapv Acid (WESCAPS PO) Take 1 capsule by [...] and procedure to be performed. A 16 Albanian coud?? catheter was placed through the urethra, [...] in stable condition. Lizandro Barron MD Urology [facility] documented in this encounter Plan of Treatment Upcoming Encounters Date Type Department Care Team (Late st Contact Info) Description 09/27/2024 1:00 PM AUDIO TECHNICIAN Office Visit [facility] [place] [address] [address] Jaxon Buenrostro MD [address] [place] [id number] Scheduled Referrals Name Type Priority Associated Diagnoses [...] - BEAKER POCT Final Resul t LABORATORY [facility] Acute Care Lab [address] Lab (1st floor, no room number) [place] [address], [facility] * Glucose by meter (05/30/2024 7:13 AM CDT) GLUCOSE BY METER POCT 82 70 - 99 mg/dL 05/30/2024 7:19 AM CDT LABORATORY POC Blood, Capillary BLOOD SPECIMEN / Unknown 05/30/2024 7:13 AM CDT 05/30/2024 7:19 AM CDT Antonino Cheek MD LAB - BEAKER POCT Final Resul t LABORATORY [facility] Lab [address] Lab (1st floor, no room number) [place] [address] * (ABNORMAL) INR (05/30/2024 6:54 AM CDT) [facility] INR 2.26(H) 0.85 - 1.15 05/30/2024 7:20 AM CDT LABORATORY Blood STRUCTURE OF RIGHT HAND / Unknown Venipuncture / Unknown 05/30/2024 6:54 AM CDT 05/30/2024 7:06 AM CDT Antonino Cheek MD LAB - BLOOD ORDERABLES Final Result LABORATORY [facility] Lab [address] Lab (1st floor, no room number) [place] [address] * (ABNORMAL) Basic metabolic panel (05/30/2024 6:54 AM CDT) [facility] Sodium 133(L) 135 - 145 mmol/L [...] LAB - BLOOD ORDERABLES Final Result LABORATORY [facility] Care Lab [address] [facility] Lab (1st floor, no room number) [place] [address], [facility] * (ABNORMAL) CBC with [...] LAB - BLOOD ORDERABLES Final Result LABORATORY [facility] Care Lab [address] Lab (1st floor, no room number) [address] * (ABNORMAL) Glucose by meter (05/30/2024 2:18 AM CDT) GLUCOSE BY METER POCT 138(H) 70 - 99 mg/dL 05/30/2024 2:24 AM CDT LABORATORY POC Blood, Capillary BLOOD SPECIMEN / Unknown 05/30/2024 2:18 AM CDT 05/30/2024 2:24 AM CDT us Antonino Cheek MD LAB - BEAKER POCT Final Resul t LABORATORY POC [facility] Lab [address] Lab (1st floor, no room number) [address] * (ABNORMAL) Glucose by meter (05/29/2024 9:28 PM CDT) GLUCOSE BY METER POCT 160(H) 70 - 99 mg/dL 05/29/2024 9:35 PM CDT RH LABORATORY POC Blood, Capillary BLOOD SPECIMEN / Unknown 05/29/2024 9:28 PM CDT 05/29/2024 9:35 PM CDT Antonino Cheek MD LAB - BEAKER POCT Final Resul t Performing Organization Address City/[facility]/ZIP Co de Phone Number LABORATORY [facility] Care Lab [address] Lab (1st floor, no room number) [place] [address], [facility] * (ABNORMAL) Glucose by meter (05/29/2024 5:54 PM CDT) GLUCOSE BY METER POCT 159(H) 70 - 99 mg/dL 05/29/2024 6:01 PM CDT LABORATORY POC Blood, Capillary BLOOD SPECIMEN / Unknown 05/29/2024 5:54 PM CDT 05/29/2024 6:01 PM CDT Antonino DEAN - BEXIANG POCT Final Resul t Performing Organization Address [facility]/ZIP Co de Phone Number LABORATORY [facility] Lab [address] Lab (1st floor, no room number) [place] [address], [facility] * (ABNORMAL) Glucose by meter (05/29/2024 1:41 PM CDT) GLUCOSE BY METER POCT 158(H) 70 - 99 mg/dL 05/29/2024 1:48 PM CDT LABORATORY POC Blood, Capillary BLOOD SPECIMEN / Unknown 05/29/2024 1:41 PM CDT 05/29/2024 1:48 PM CDT Antonino DEAN - BEXIANG POCT Final Resul t LABORATORY [facility] Lab [address] Lab (1st floor, no room number) [place] [address], [facility] * Glucose by meter (05/29/2024 7:54 AM CDT) GLUCOSE BY METER POCT 90 70 - 99 mg/dL 05/29/2024 8:01 AM CDT LABORATORY POC Blood, Capillary BLOOD SPECIMEN / Unknown 05/29/2024 7:54 AM CDT 05/29/2024 8:01 AM CDT Antonino Cheek MD LAB - BEAKER POCT Final Resul t RH LABORATORY POC [facility] Lab [address] Lab (1st floor, no room number) [place] [address], [facility] * (ABNORMAL) INR (05/29/2024 6:22 AM CDT) Pathologist [facility] INR 1.92(H) 0.85 - 1.15 05/29/2024 6:52 AM CDT LABORATORY Blood STRUCTURE OF RIGHT HAND / Unknown Venipuncture / Unknown 05/29/2024 6:22 AM CDT 05/29/2024 6:40 AM CDT us Antonino Cheek MD LAB - BLOOD ORDERABLES Final Result LABORATORY [facility] Care Lab [address] Lab (1st floor, no room number) [place] [address], [facility] * (ABNORMAL) Basic metabolic panel (05/29/2024 [...] - BLOOD ORDERABLES Final Result RH LABORATORY [facility] Lab [address] Lab (1st floor, no room number) [place] [address], [facility] * (ABNORMAL) CBC with platelets (05/29/2024 [...] AM CDT 05/29/2024 6:40 AM CDT us hCarles Mcneal MD LAB - BLOOD ORDERABLES Final Result LABORATORY [facility] Lab [address] Lab (1st floor, no room number) [address] * (ABNORMAL) Glucose by meter (05/29/2024 2:26 AM CDT) GLUCOSE BY METER POCT 103(H) 70 - 99 mg/dL 05/29/2024 2:33 AM CDT LABORATORY POC Blood, Capillary BLOOD SPECIMEN / Unknown 05/29/2024 2:26 AM CDT 05/29/2024 2:33 AM CDT us Antonino Cheek MD LAB - BEAKER POCT Final Resul t LABORATORY [facility] Lab [address] Lab (1st floor, no room number) [address] * (ABNORMAL) Glucose by meter (05/28/2024 9:50 PM CDT) GLUCOSE BY METER POCT 102(H) 70 - 99 mg/dL 05/28/2024 9:56 PM CDT RH LABORATORY POC Blood, Capillary BLOOD SPECIMEN / Unknown 05/28/2024 9:50 PM CDT 05/28/2024 9:56 PM CDT us Antonino Cheek MD LAB - BEAKER POCT Final Resul t LABORATORY [facility] Care Lab [address] Lab (1st floor, no room number) [place] [phone] [place] [address] * (ABNORMAL) Glucose by meter (05/28/2024 5:08 PM CDT) GLUCOSE BY METER POCT 254(H) 70 - 99 mg/dL 05/28/2024 5:16 PM CDT LABORATORY POC Blood, Capillary BLOOD SPECIMEN / Unknown 05/28/2024 5:08 PM CDT 05/28/2024 5:16 PM CDT Antonino Cheek MD LAB - BEAKER POCT Final Resul t LABORATORY [facility] Lab [address] Lab (1st floor, no room number) [place] [phone] [place] [address] * Glucose by meter (05/28/2024 1:58 PM CDT) GLUCOSE BY METER POCT 91 70 - 99 mg/dL 05/28/2024 2:05 PM CDT LABORATORY POC Blood, Capillary BLOOD SPECIMEN / Unknown 05/28/2024 1:58 PM CDT 05/28/2024 2:05 PM CDT us Antonino Cheek MD LAB - BEAKER POCT Final Resul t LABORATORY [facility] Lab [address] Lab (1st floor, no room number) [place] [phone], [facility] * (ABNORMAL) Glucose by meter (05/28/2024 7:48 AM CDT) GLUCOSE BY METER POCT 128(H) 70 - 99 mg/dL 05/28/2024 7:54 AM CDT LABORATORY POC Blood, Capillary BLOOD SPECIMEN / Unknown 05/28/2024 7:48 AM CDT 05/28/2024 7:54 AM CDT us Antonino Cheek MD LAB - BEAKER POCT Final Resul t LABORATORY [facility] Lab [address] Lab (1st floor, no room number) [place] [phone] * Extra Purple Top EDTA (LAB USE ONLY) (05/28/2024 6:07 AM CDT) Hold Specimen [facility] 05/28/2024 7:32 AM CDT RH LABORATORY Blood STRUCTURE OF LEFT HAND / Unknown Venipuncture / Unknown 05/28/2024 6:07 AM CDT 05/28/2024 6:17 AM CDT us Antonino Cheek MD LAB - BLOOD ORDERABLES Final Result Performing Organization Address City/[facility]/ZIP Co de Phone Number [facility] Lab [address] Lab (1st floor, no room number) [place] [address] * Extra Green Top Tube (LAB USE ONLY) (05/28/2024 6:07 AM CDT) Hold Specimen [facility] 05/28/2024 7:32 AM CDT RH LABORATORY Blood STRUCTURE OF LEFT HAND / Unknown Venipuncture / Unknown 05/28/2024 6:07 AM CDT 05/28/2024 6:17 AM CDT us Antonino Cheek MD LAB - BLOOD ORDERABLES Final Result RH LABORATORY [facility] Acute Care Lab [address] Lab (1st floor, no room number) [place] [phone] [place] [address] * (ABNORMAL) INR (05/28/2024 6:07 AM CDT) Pathologist [facility] INR 1.87(H) 0.85 - 1.15 05/28/2024 6:27 AM CDT LABORATORY Blood STRUCTURE OF LEFT HAND / Unknown Venipuncture / Unknown 05/28/2024 6:07 AM CDT 05/28/2024 6:17 AM CDT us Antonino Cheek MD LAB - BLOOD ORDERABLES Final Result [facility] Lab [address] Lab (1st floor, no room number) [place] [phone] * (ABNORMAL) Hemoglobin (05/28/2024 6:07 AM CDT) Pathologist [facility] Hemoglobin 7.7(L) 13.3 - 17.7 g/dL 05/28/2024 9:02 AM CDT LABORATORY Blood STRUCTURE OF LEFT HAND / Unknown Venipuncture / Unknown 05/28/2024 6:07 AM CDT 05/28/2024 6:17 AM CDT us Dileep Anders MD LAB - BLOOD ORDERABLES Final Result [facility] Care Lab [address] Lab (1st floor, no room number) [place] [phone] * [...] LAB - BLOOD ORDERABLES Final Result LABORATORY [facility] Lab [address] [facility] Lab (1st floor, no room number) [place] [address], [facility] * (ABNORMAL) Glucose by meter (05/28/2024 2:19 AM CDT) [facility] GLUCOSE BY METER POCT 102(H) 70 - 99 mg/dL 05/28/2024 2:26 AM CDT LABORATORY POC Blood, Capillary BLOOD SPECIMEN / Unknown 05/28/2024 2:19 AM CDT 05/28/2024 2:26 AM CDT Antonino Cheek MD LAB - BEAKER POCT Final Resul t Performing Organization Address [facility]/ZIP Co de Phone Number LABORATORY [facility] Lab [address] Lab (1st floor, no room number) [address] [place] [address] * (ABNORMAL) Glucose by meter (05/27/2024 9:05 PM CDT) GLUCOSE BY METER POCT 148(H) 70 - 99 mg/dL 05/27/2024 9:13 PM CDT LABORATORY POC Blood, Capillary BLOOD SPECIMEN / Unknown 05/27/2024 9:05 PM CDT 05/27/2024 9:13 PM CDT Antonino Cheek MD LAB - BEAKER POCT Final Resul t Performing Organization Address [facility]/ZIP Co de Phone Number LABORATORY [facility] Lab [address] Lab (1st floor, no room number) [place] [phone] [place] [address] * (ABNORMAL) Glucose by meter (05/27/2024 5:11 PM CDT) GLUCOSE BY METER POCT 148(H) 70 - 99 mg/dL 05/27/2024 5:20 PM CDT LABORATORY POC Blood, Capillary BLOOD SPECIMEN / Unknown 05/27/2024 5:11 PM CDT 05/27/2024 5:20 PM CDT Antonino Cheek MD LAB - BEAKER POCT Final Resul t LABORATORY [facility] Lab [address] Lab (1st floor, no room number) [address] * (ABNORMAL) Glucose by meter (05/27/2024 11:42 AM CDT) GLUCOSE BY METER POCT 149(H) 70 - 99 mg/dL 05/27/2024 11:49 AM CDT RH LABORATORY POC Blood, Capillary BLOOD SPECIMEN / Unknown 05/27/2024 11:42 AM CDT 05/27/2024 11:49 AM CDT Antonino Cheek MD LAB - BEAKER POCT Final Resul t LABORATORY [facility] Lab [address] Lab (1st floor, no room number) [place] [address], [facility] * (ABNORMAL) Glucose by meter (05/27/2024 7:44 AM CDT) GLUCOSE BY METER POCT 108(H) 70 - 99 mg/dL 05/27/2024 7:51 AM CDT RH LABORATORY POC Blood, Capillary BLOOD SPECIMEN / Unknown 05/27/2024 7:44 AM CDT 05/27/2024 7:51 AM CDT Antonino Cheek MD LAB - BEAKER POCT Final Resul t Performing Organization Address [facility]/ZIP Co de Phone Number LABORATORY [facility] Lab [address] Lab (1st floor, no room number) [place] [address], [facility] * (ABNORMAL) INR (05/27/2024 7:03 AM CDT) INR 1.81(H) 0.85 - 1.15 05/27/2024 7:17 AM CDT RH LABORATORY Blood STRUCTURE OF RIGHT HAND / Unknown Venipuncture / Unknown 05/27/2024 7:03 AM CDT 05/27/2024 7:07 AM CDT us Antonino Cheek MD LAB - BLOOD ORDERABLES Final Result [facility] Lab [address] Lab (1st floor, no room number) [place] [phone] [place] [address] * (ABNORMAL) Glucose by meter (05/27/2024 2:03 AM CDT) GLUCOSE BY METER POCT 157(H) 70 - 99 mg/dL 05/27/2024 2:10 AM CDT RH LABORATORY POC Blood, Capillary BLOOD SPECIMEN / Unknown 05/27/2024 2:03 AM CDT 05/27/2024 2:10 AM CDT Antonino Cheek MD LAB - BEAKER POCT Final Resul t LABORATORY [facility] Lab [address] Lab (1st floor, no room number) [address] * (ABNORMAL) Glucose by meter (05/26/2024 9:29 PM CDT) GLUCOSE BY METER POCT 155(H) 70 - 99 mg/dL 05/26/2024 9:37 PM CDT LABORATORY POC Blood, Capillary BLOOD SPECIMEN / Unknown 05/26/2024 9:29 PM CDT 05/26/2024 9:37 PM CDT Antonino Cheek MD LAB - BEAKER POCT Final Resul t LABORATORY [facility] Lab [address] Lab (1st floor, no room number) [place] [phone] * (ABNORMAL) Glucose by meter (05/26/2024 4:10 PM CDT) GLUCOSE BY METER POCT 174(H) 70 - 99 mg/dL 05/26/2024 4:19 PM CDT RH LABORATORY POC Blood, Capillary BLOOD SPECIMEN / Unknown 05/26/2024 4:10 PM CDT 05/26/2024 4:19 PM CDT Antonino Cheek MD LAB - BEAKER POCT Final Resul t LABORATORY POC [facility] Lab [address] (1st floor, no room number) [address] * (ABNORMAL) INR (05/26/2024 4:09 PM CDT) INR 1.67(H) 0.85 - 1.15 05/26/2024 4:28 PM CDT RH LABORATORY Blood STRUCTURE OF LEFT UPPER LIMB / Unknown Venipuncture / Unknown 05/26/2024 4:09 PM CDT 05/26/2024 4:15 PM CDT Antonnio Cheek MD LAB - BLOOD ORDERABLES Final Result Performing Organization Address City/[facility]/ZIP Co de Phone Number LABORATORY [facility] Lab [address] Lab (1st floor, no room number) [address] * (ABNORMAL) Glucose by meter (05/26/2024 11:37 AM CDT) GLUCOSE BY METER POCT 197(H) 70 - 99 mg/dL 05/26/2024 11:44 AM CDT LABORATORY POC Blood, Capillary BLOOD SPECIMEN / Unknown 05/26/2024 11:37 AM CDT 05/26/2024 11:44 AM CDT Antonino Cheek MD LAB - BEAKER POCT Final Resul t LABORATORY [facility] Lab [address] Lab (1st floor, no room number) [address] * Glucose by meter (05/26/2024 8:22 AM CDT) GLUCOSE BY METER POCT 85 70 - 99 mg/dL 05/26/2024 8:29 AM CDT LABORATORY POC Blood, Capillary BLOOD SPECIMEN / Unknown 05/26/2024 8:22 AM CDT 05/26/2024 8:29 AM CDT us Antonino DEAN - [employer] POCT Final Resul t RH LABORATORY [facility] Acute Care Lab [address] Lab (1st floor, no room number) [place] [address], [facility] * (ABNORMAL) CBC with platelets and [...] LAB - BLOOD ORDERABLES Final Result LABORATORY [facility] Lab [address] Lab (1st floor, no room number) [place] [address], [facility] * (ABNORMAL) Basic metabolic panel (05/26/2024 [...] LAB - BLOOD ORDERABLES Final Result LABORATORY [facility] Lab [address] Lab (1st floor, no room number) [place] [address] * (ABNORMAL) Glucose by meter (05/26/2024 1:57 AM CDT) [facility] GLUCOSE BY METER POCT 123(H) 70 - 99 mg/dL 05/26/2024 2:04 AM CDT LABORATORY POC Blood, Capillary BLOOD SPECIMEN / Unknown 05/26/2024 1:57 AM CDT 05/26/2024 2:04 AM CDT Antonino Cheek MD LAB - BEAKER POCT Final Resul t Performing Organization Address [facility]/ZIP Co de Phone Number LABORATORY [facility] Lab [address] Lab (1st floor, no room number) [address] * (ABNORMAL) Glucose by meter (05/25/2024 9:32 PM CDT) GLUCOSE BY METER POCT 155(H) 70 - 99 mg/dL 05/25/2024 9:39 PM CDT RH LABORATORY POC Blood, Capillary BLOOD SPECIMEN / Unknown 05/25/2024 9:32 PM CDT 05/25/2024 9:39 PM CDT Antonino Cheek MD LAB - BEAKER POCT Final Resul t Performing Organization Address [facility]/ZIP Co de Phone Number LABORATORY [facility] Lab [address] Lab (1st floor, no room number) [address] * (ABNORMAL) Glucose by meter (05/25/2024 7:06 PM CDT) GLUCOSE BY METER POCT 183(H) 70 - 99 mg/dL 05/25/2024 7:14 PM CDT RH LABORATORY POC Blood, Capillary BLOOD SPECIMEN / Unknown 05/25/2024 7:06 PM CDT 05/25/2024 7:14 PM CDT us Antonino Cheek MD LAB - BEAKER POCT Final Resul t LABORATORY [facility] Lab [address] Lab (1st floor, no room number) [address] * (ABNORMAL) Glucose by meter (05/25/2024 5:29 PM CDT) GLUCOSE BY METER POCT 142(H) 70 - 99 mg/dL 05/25/2024 5:36 PM CDT RH LABORATORY POC Blood, Capillary BLOOD SPECIMEN / Unknown 05/25/2024 5:29 PM CDT 05/25/2024 5:36 PM CDT us Antonino Cheek MD LAB - BEAKER POCT Final Resul t LABORATORY POC [facility] Lab [address] Lab (1st floor, no room number) [place] [phone] [place] [address] * Vancomycin level (05/25/2024 2:04 PM CDT) Vancomycin 11.9 ug/mL 05/25/2024 3:28 PM CDT LABORATORY Comment: Traditional Dosing Therapeutic Range: Trough 10-15 ug/mL Peak 20-40 ug/mL Critical: Greater than 25.0 ug/mL Blood STRUCTURE OF RIGHT UPPER LIMB / Unknown Venipuncture / Unknown 05/25/2024 2:04 PM CDT 05/25/2024 2:07 PM CDT us Antonino Cheek MD LAB - BLOOD ORDERABLES Final Result Performing Organization Address City/[facility]/ZIP Co de Phone Number [facility] Lab [address] Lab (1st floor, no room number) [place] [phone] * Extra Purple Top EDTA (LAB USE ONLY) (05/25/2024 2:04 PM CDT) Hold Specimen [facility] 05/25/2024 3:17 PM CDT LABORATORY Blood STRUCTURE OF RIGHT UPPER LIMB / Unknown Venipuncture / Unknown 05/25/2024 2:04 PM CDT 05/25/2024 2:07 PM CDT us Antonino Cheek MD LAB - BLOOD ORDERABLES Final Result [facility] Lab [address] Lab (1st floor, no room number) [place] [phone] [place] [address] * Extra Green Top Tube (LAB USE ONLY) (05/25/2024 2:04 PM CDT) Hold Specimen [facility] 05/25/2024 3:17 PM CDT LABORATORY Blood STRUCTURE OF RIGHT UPPER LIMB / Unknown Venipuncture / Unknown 05/25/2024 2:04 PM CDT 05/25/2024 2:07 PM CDT Antonino Cheek MD LAB - BLOOD ORDERABLES Final Result LABORATORY [facility] Lab [address] Lab (1st floor, no room number) [address] [place] [address] * Glucose by meter (05/25/2024 2:01 PM CDT) GLUCOSE BY METER POCT 70 70 - 99 mg/dL 05/25/2024 2:08 PM CDT LABORATORY POC Blood, Capillary BLOOD SPECIMEN / Unknown 05/25/2024 2:01 PM CDT 05/25/2024 2:08 PM CDT Antonino Cheek MD LAB - BEAKER POCT Final Resul t LABORATORY POC [facility] Lab [address] Lab (1st floor, no room number) [place] [phone] * Hepatitis B surface antigen (05/25/2024 9:25 AM CDT) Hepatitis B Surface Antigen Nonreactive Nonreactive 05/25/2024 2:23 PM CDT [facility] LABORATORY Blood BLOOD SPECIMEN / Unknown Venipuncture / Unknown 05/25/2024 9:25 AM CDT 05/25/2024 10:13 AM CDT Jose Enrique Naylor MD LAB - BLOOD ORDERABLES Final Res ult [facility] LABORATORY [facility] [address] [facility], [address] [address] * Hepatitis B Surface Antibody (05/25/2024 9:25 [...] BLOOD ORDERABLES Final Res ult U LABORATORY [facility] Lab [address] [facility], [address] [address] * Glucose by meter (05/25/2024 5:35 AM CDT) GLUCOSE BY METER POCT 86 70 - 99 mg/dL 05/25/2024 5:42 AM CDT LABORATORY POC Blood, Capillary BLOOD SPECIMEN / Unknown 05/25/2024 5:35 AM CDT 05/25/2024 5:42 AM CDT us Antonino Cheek MD LAB - BEAKER POCT Final Resul t LABORATORY POC [facility] [address] Lab (1st floor, no room number) [place] [address], [facility] * Glucose by meter (05/25/2024 2:01 AM CDT) GLUCOSE BY METER POCT 86 70 - 99 mg/dL 05/25/2024 2:08 AM CDT RH LABORATORY POC Blood, Capillary BLOOD SPECIMEN / Unknown 05/25/2024 2:01 AM CDT 05/25/2024 2:08 AM CDT Antonino Cheek MD LAB - BEAKER POCT Final Resul t LABORATORY [facility] Lab [address] Lab (1st floor, no room number) [place] [phone] * Glucose by meter (05/24/2024 8:52 PM CDT) GLUCOSE BY METER POCT 96 70 - 99 mg/dL 05/24/2024 8:59 PM CDT RH LABORATORY POC Blood, Capillary BLOOD SPECIMEN / Unknown 05/24/2024 8:52 PM CDT 05/24/2024 8:59 PM CDT Antonino DEAN - BEAKER POCT Final Resul t Performing Organization Address [facility]/ZIP Co de Phone Number LABORATORY [facility] Lab [address] Lab (1st floor, no room number) [place] [phone], [facility] * Glucose by meter (05/24/2024 5:05 PM CDT) GLUCOSE BY METER POCT 84 70 - 99 mg/dL 05/24/2024 5:32 PM CDT RH LABORATORY POC Blood, Capillary BLOOD SPECIMEN / Unknown 05/24/2024 5:05 PM CDT 05/24/2024 5:32 PM CDT us Antonino Cheek MD LAB - BEXIANG POCT Final Resul t LABORATORY [facility] Lab [address] Lab (1st floor, no room number) [place] [phone] [place] [address] * (ABNORMAL) INR (05/24/2024 2:16 PM CDT) INR 1.16(H) 0.85 - 1.15 05/24/2024 2:34 PM CDT LABORATORY Blood BLOOD SPECIMEN / Unknown Venipuncture / Unknown 05/24/2024 2:16 PM CDT 05/24/2024 2:21 PM CDT us Lizandro Barron MD LAB - BLOOD ORDERABLES Final Re sult [facility] Lab [address] [facility] Lab (1st floor, no room number) [place] [phone] [place] [address] * Glucose by meter (05/24/2024 12:20 PM CDT) GLUCOSE BY METER POCT 75 70 - 99 mg/dL 05/24/2024 12:26 PM CDT LABORATORY POC Blood, Capillary BLOOD SPECIMEN / Unknown 05/24/2024 12:20 PM CDT 05/24/2024 12:26 PM CDT us Antonino Cheek MD LAB - BEAKER POCT Final Resul t LABORATORY [facility] Lab [address] Lab (1st floor, no room number) [place] [phone] * Glucose by meter (05/24/2024 9:12 AM CDT) GLUCOSE BY METER POCT 86 70 - 99 mg/dL 05/24/2024 9:19 AM CDT LABORATORY POC Blood, Capillary BLOOD SPECIMEN / Unknown 05/24/2024 9:12 AM CDT 05/24/2024 9:19 AM CDT us [facility]ek [facility] Final Resul t [facility] LABORAT[facility] [address] Lab (1st floor, no room number) [place] [address], [facility] * (ABNORMAL) CBC with platelets and [...] LAB - BLOOD ORDERABLES Final Result LABORATORY [facility] [address] Lab (1st floor, no room number) [place] [address], [facility] * (ABNORMAL) Comprehensive metabolic panel (05/24/2024 [...] - BLOOD ORDERABLES Final Result RH LABORATORY [facility] [address] Lab (1st floor, no room number) [place] [address], [facility] * INR (05/24/2024 6:09 AM CDT) INR 1.14 0.85 - 1.15 05/24/2024 6:27 AM CDT LABORATORY Blood STRUCTURE OF LEFT HAND / Unknown Venipuncture / Unknown 05/24/2024 6:09 AM CDT 05/24/2024 6:14 AM CDT us Lizandro Barron MD LAB - BLOOD ORDERABLES Final Re sult LABORATORY [facility] Lab [address] Lab (1st floor, no room number) [place] [address], [facility] * (ABNORMAL) Glucose by meter (05/24/2024 4:49 AM CDT) GLUCOSE BY METER POCT 119(H) 70 - 99 mg/dL 05/24/2024 4:56 AM CDT LABORATORY POC Blood, Capillary BLOOD SPECIMEN / Unknown 05/24/2024 4:49 AM CDT 05/24/2024 4:56 AM CDT Antonino Cheek MD LAB - BEAKER POCT Final Resul t Performing Organization Address [facility]/ZIP Co de Phone Number LABORATORY [facility] Lab [address] Lab (1st floor, no room number) [place] [address], [facility] * (ABNORMAL) Glucose by meter (05/24/2024 1:13 AM CDT) GLUCOSE BY METER POCT 100(H) 70 - 99 mg/dL 05/24/2024 1:20 AM CDT LABORATORY POC Blood, Capillary BLOOD SPECIMEN / Unknown 05/24/2024 1:13 AM CDT 05/24/2024 1:20 AM CDT us Antonino Cheek MD LAB - BEAKER POCT Final Resul t LABORATORY [facility] Lab [address] Lab (1st floor, no room number) [place] [phone] [place] [address] * INR (05/23/2024 10:19 PM CDT) INR 1.04 0.85 - 1.15 05/23/2024 10:43 PM CDT LABORATORY Blood STRUCTURE OF LEFT UPPER LIMB / Unknown Venipuncture / Unknown 05/23/2024 10:19 PM CDT 05/23/2024 10:26 PM CDT us Lizandro Barron MD LAB - BLOOD ORDERABLES Final Re sult LABORATORY [facility] Lab [address] [facility] Lab (1st floor, no room number) [address] [place] [address] * Glucose by meter (05/23/2024 9:58 PM CDT) GLUCOSE BY METER POCT 83 70 - 99 mg/dL 05/23/2024 10:04 PM CDT LABORATORY POC Blood, Capillary BLOOD SPECIMEN / Unknown 05/23/2024 9:58 PM CDT 05/23/2024 10:04 PM CDT us Antonino Cheek MD LAB - BEAKER POCT Final Resul t LABORATORY POC [facility] Lab [address] Lab (1st floor, no room number) [address] * (ABNORMAL) Glucose by meter (05/23/2024 9:06 PM CDT) GLUCOSE BY METER POCT 47(LL) 70 - 99 mg/dL 05/23/2024 9:13 PM CDT LABORATORY POC Comment:Dr/RN Notified Blood, Capillary BLOOD SPECIMEN / Unknown 05/23/2024 9:06 PM CDT 05/23/2024 9:13 PM CDT Antonino Cheek MD LAB - BEAKER POCT Final Resul t LABORATORY [facility] Lab [address] Lab (1st floor, no room number) [address] * Glucose by meter (05/23/2024 8:41 PM CDT) GLUCOSE BY METER POCT 78 70 - 99 mg/dL 05/23/2024 8:48 PM CDT LABORATORY POC Blood, Capillary BLOOD SPECIMEN / Unknown 05/23/2024 8:41 PM CDT 05/23/2024 8:48 PM CDT us Antonino Cheek MD LAB - BEAKER POCT Final Resul t LABORATORY [facility] Lab [address] Lab (1st floor, no room number) [address] * (ABNORMAL) Glucose by meter (05/23/2024 7:55 PM CDT) GLUCOSE BY METER POCT 67(L) 70 - 99 mg/dL 05/23/2024 8:02 PM CDT LABORATORY POC Blood, Capillary BLOOD SPECIMEN / Unknown 05/23/2024 7:55 PM CDT 05/23/2024 8:02 PM CDT Antonino Cheek MD LAB - BEAKER POCT Final Resul t LABORATORY [facility] Lab [address] Lab (1st floor, no room number) [address] * (ABNORMAL) Tissue Aerobic Bacterial Culture [...] JOJO <=1 ug/mL: Susceptible Morganella morganii Cefepime JJOO <=1 ug/mL: Susceptible Morganella morganii Meropenem JOJO <=0.25 ug/mL: Susceptible Morganella morganii Gentamicin JOJO <=1 ug/mL: Susceptible Morganella morganii Tobramycin JOJO <=1 ug/mL: Susceptible Morganella morganii Ciprofloxacin JOJO <=0.25 ug/mL: Susceptible Morganella morganii Levofloxacin JOJO <=0.12 ug/mL: Susceptible Morganella morganii Trimethoprim/Sulfamethoxazole JOJO >16/304 ug/mL: Resistant Lizandro Barron MD LAB - MICRO GENERAL ORDERABLES Final Result [facility] IDD LABORATORY [facility] Inf. Diseases Diag. Lab [address] [facility], Room [place] [phone] * (ABNORMAL) Gram Stain (05/23/2024 6:42 [...] GENERAL ORDERABLES Final Result Performing Organization Address City/[facility] Co de Phone Number [facility] IDD LABORATORY [facility] Inf. Diseases Diag. Lab [address] [facility], Room [place] [phone] [place] [address] * Anaerobic Bacterial Culture Routine (05/23/2024 6:42 PM CDT) Culture 4+ Mixed Aerobic and Anaerobic dev JOJO 05/25/2024 2:01 PM CDT [facility] IDD LABORATORY Comment:No predominant organ ism Tissue SCROTAL STRUCTURE / Unknown Non-blood Collection / Unknown 05/23/2024 6:42 PM CDT 05/23/2024 6:46 PM CDT us Lizandro Barron MD LAB - MICRO GENERAL ORDERABLES Final Result [facility] LABORATORY [facility] Inf. Diseases Diag. Lab [address] [facility], [address] [place] [address], [facility] * Glucose by meter (05/23/2024 5:41 PM CDT) GLUCOSE BY METER POCT 90 70 - 99 mg/dL 05/23/2024 5:49 PM CDT LABORATORY POC Blood, Capillary BLOOD SPECIMEN / Unknown 05/23/2024 5:41 PM CDT 05/23/2024 5:49 PM CDT us Vi Coe DO LAB - BEAKER POCT Final Result Performing Organization Address City/[facility]/ZIP Co de Phone Number LABORATORY POC [facility] [address] Lab (1st floor, no room number) [place] [address] * [...] RESULTS QTc 458 ms RADIOLOGY RESULTS P Clay 54 degrees RADIOLOGY RESULTS R AXIS -5 degrees RADIOLOGY RESULTS T Clay 24 degrees RADIOLOGY RESULTS Interpretation ECG Sinus rhythm with 1st degree A-V block Septal infarct , age undetermined Abnormal ECG When compared with ECG of 02-Mar-2024 14:00, Septal infarct is now Present No significant change was found Confirmed by - EMERGENCY ROOM, PHYSICIAN ([id number]), news copy editor LIZANDRO ZABALA ([id number]) on 05/24/2024 6:44:53 AM RADIOLOGY RESULTS 05/23/2024 [...] - BLOOD ORDERABLES F inal Result LABORATORY [facility] [address] [facility] ([facility], no room number) [place] [address] * CT Abdomen Pelvis w Contrast (05/23/2024 [...] 2:35 PM. MIKE LIPSCOMB MD SYSTEM ID: [id number] Narrative 05/23/2024 2:[address] ABDOMEN [...] veins which are not included in the [id number]. MUSCULOSKELETAL: Stable degenerative changes at L4-L5 with [...] veins which are not included in the [id number]. 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 No destructive lesions in the bones. IMPRESSION: 1. 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 2. Other chronic findings as discussed above. Findings were discussed with Dr. Kenna Coe at 2:35 PM. MIKE LIPSCOMB MD SYSTEM ID: [id number] Vi Coe DO IMG CT ORDERABLES Final Result * Adult Type and Screen (05/23/2024 2:07 PM CDT) ABO/RH(D) O POS 05/23/2024 1:37 PM CDT RH BLOOD BANK Antibody Screen Negative Negative 05/23/2024 1:37 PM CDT RH BLOOD BANK SPECIMEN EXPIRATION DATE [id number] 05/23/2024 1:37 PM CDT RH BLOOD BANK Blood BLOOD SPECIMEN / Unknown Venipuncture / Unknown 05/23/2024 2:07 PM CDT 05/23/2024 2:10 PM CDT Vi Coe DO LAB - BLOOD BANK TEST OR NORAH Final Result BLOOD BANK [address] [place] [address] * [...] BLOOD ORDERABLES F inal Result RH LABORATORY [facility] [address] Lab (1st floor, no room number) [place] [address] * Lactic acid whole blood (05/23/2024 1:50 PM CDT) Pathologist [facility] Lactic Acid 0.9 0.7 - 2.0 mmol/L 05/23/2024 1:57 PM CDT RH LABORATORY Blood BLOOD SPECIMEN / Unknown Venipuncture / Unknown 05/23/2024 1:50 PM CDT 05/23/2024 1:54 PM CDT Vi Coe DO LAB - BLOOD ORDERABLES F inal Result LABORATORY [facility] [address] Lab (1st floor, no room number) [place] [address] * Blood Culture Peripheral Blood (05/23/2024 1:50 PM CDT) [facility] Culture No Growth 05/28/2024 4:06 PM CDT [facility] IDD LABORATORY Blood BLOOD SPECIMEN / Unknown Venipuncture / Unknown 05/23/2024 1:50 PM CDT 05/23/2024 1:53 PM CDT us Vi Coe DO LAB - MICRO GENERAL ORDE RABLES Final Result [facility] IDD LABORATORY [facility] Inf. Diseases Diag. Lab [address] [facility], [address] [place] [address] * (ABNORMAL) Comprehensive metabolic panel (05/23/2024 1:50 [...] - BLOOD ORDERABLES F inal Result LABORATORY [facility] [address] Lab (1st floor, no room number) [place] [address], [facility] * (ABNORMAL) INR (05/23/2024 1:50 PM CDT) INR >10.00(HH) 0.85 - 1.15 05/23/2024 2:30 PM CDT RH LABORATORY Blood BLOOD SPECIMEN / Unknown Venipuncture / Unknown 05/23/2024 1:50 PM CDT 05/23/2024 1:55 PM CDT us Vi Coe DO LAB - BLOOD ORDERABLES F inal Result RH LABORATORY [facility] Lab [address] [facility] Lab (1st floor, no room number) [place] [address], [facility] documented in this encounter Visit Diagnoses [...] medication order) 0535 ($Given - Provider: Marce Loen, LINDA)1343 ($Given - Provider: Edie Pack, LINDA)2132 [...] stools. documented in this encounter Care Teams Retirement Plan Counselor Relationship Specialty Start Date End Date Cornell Butt PCP - General 06/24/11 documented as of this encounter
--- OUTSIDE RECORDS SUMMARY | 2024-08-31 13:40 | XMS_ITS | Encounter Summary ---
Author Organization [facility] Address [address] [facility] [place] [address] Care Team Providers Care Engineering Technical Writer Name Role Phone HuffPreet cool Primary Care Provider [phone] Encounter Details Date Type Department Care Team [...] in an abandoned building, in an overnight jail, or couch-surfing.) Patient unable to answer 05/30/2024 [...] on file Legal Sex Male 5:12 AM [employer] Gender Identity Male 12/05/2017 10:39 AM [employer] Sexual Orientation Not on file documented as of this encounter Plan of Treatment Upcoming Encounters Date Type Department Care Team (Late st Contact Info) Description 09/27/2024 1:00 PM [employer] Office Visit [facility] [place] [address] [place] [phone] Jaxon Saravia MD [address] [place] [address] documented as of this encounter Visit Diagnoses Not on filedocumented in this encounter Care Teams Engineering Technical Writer Relationship Specialty Start Date End Date Preet Huff PCP - General 06/24/11 documented as of this encounter
--- OUTSIDE RECORDS SUMMARY | 2024-08-31 13:40 | XMS_ITS | Encounter Summary ---
Author Organization [place] Address [address] [place] [address] Care Team Providers Care Dishwasher Busser Name Role Phone Preet Huff Hans Primary Care Provider [phone] Reason for Visit * Reason Comments Altered Mental Status Encounter Details Date Type Department Care Team (Late st Contact Info) Description 07/12/2024 12:18 AM CDT - 07/12/2024 7:24 AM CDT [facility] Emergency Dept [address] [place] [address] [phone] Avery Fernando MD [facility] [address] [place], [place] [id number] Rand Schwab MD [facility] [address] [id number] Transient hypotension; ESRD (end stage renal disease) [...] on file Legal Sex Male 5:12 AM SLEEP MANAGER Gender Identity Male 12/05/2017 10:39 AM SLEEP MANAGER Sexual Orientation Not on file documented [...] encounter Medications at Time of Discharge B Jvbhlso-X-Vqqgz Acid (WESCAPS PO) Take 1 capsule by [...] Attempted to call patient's aunt, Thelma, at [phone], no answer. * Alecia Cano MD - 07/12/2024 1:14 AM CDT [facility] Stroke Telephone Note I was [...] To page me or covering stroke neurology bridge/structure inspection team leader, click here: AMCOM Choose Fruit Or Nut Grower tab at top, then select NEUROLOGY/ALL SITES [...] Sleep apnea CPAP ??? 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 NECK CTA: 1. Normal configuration [...] vascular malformation involving the arteries of the deering of [place]ars[place]. NECK CTA: 1. Normal configuration [...] findings were communicated by phone to Dr. Feranndo at 1:30 AM. CTA results were communicated by phone to Dr. Fernando at 1:49 am on 07/12/2024. CT Head Perfusion w Contrast (Results Pending) EKG ECG taken at 0024, ECG read at 0030 NSR with 1st degree AVB Rate 65 bpm. DC interval 234 ms. QRS duration 112 ms. QT/QTc 430/447 ms. P-R-T axes 53 10 51. Independent Interpretation None ED Course Medications Administered Medications - No data to display Procedures Procedures Discussion of Management Neurology, stroke neurology ED Course 005 Exam Additional Documentation None Medical Decision Making / Diagnosis [facility] [...] WDL Cardiac WDL Cardiac WDL WDL * Abudllahi Terry RN - 07/12/2024 12:18 AM CDT Bed: [facility] Expected date: Expected time: Means of arrival: Comments: 3 ED RNs @2300, 11 pts max documented in this encounter Plan of Treatment Upcoming Encounters Date Type Department Care Team (Late st Contact Info) Description 09/27/2024 1:00 PM SLEEP MANAGER Office Visit [facility] [address] [place] [phone] Rober Saravia MD [address] [place] [phone] documented as of this encounter Procedures Procedure [...] LAB - BLOOD ORDERABLES Final Res ult [facility] Acute Care Lab [address] [facility] Lab (1st floor, no room number) [place] [address] * XR Chest 2 Views (07/12/2024 3:15 AM CDT) Anatomical Region Laterality Modality Chest Digital Radiogra phy 07/12/2024 3:15 AM CDT Impressions 07/12/2024 3:18 AM CDT IMPRESSION: Low lung volumes but the lungs appear clear. Normal heart size and pulmonary vascularity. No pleural fluid or pneumothorax. Narrative 07/12/2024 3:18 AM CDT EXAM: XR CHEST 2 VIEWS LOCATION: [facility] DATE: 07/12/2024 INDICATION: ams COMPARISON: 03/11/2024. Procedure Note Pavan Sanon MD - 07/12/2024 EXAM: XR CHEST 2 VIEWS LOCATION: [facility] DATE: 07/12/2024 INDICATION: ams COMPARISON: 03/11/2024. IMPRESSION: Low lung volumes but the lungs appear clear. Normal heart sizeand pulmonary vascularity. No pleural fluid or pneumothorax. Avery Fernando MD [facility] DIAGNOSTIC IMAGING ORDERABLE S Final Result * [...] vascular malformation involving the arteries of the deering of [place]arsia. NECK CTA: 1. Normal configuration [...] CONTRAST, CTA HEAD NECK W CONTRAST LOCATION: [facility] DATE: 07/12/2024 INDICATION: ams and [...] CONTRAST, CTA HEAD NECK W CONTRAST LOCATION: [facility] DATE: 07/12/2024 INDICATION: ams and [...] vascular malformation involving the arteries of the deering ofWillis. NECK CTA: 1. Normal configuration of [...] vascular malformation involving the arteries of the deering of [place]. NECK CTA: 1. Normal configuration [...] CONTRAST, CTA HEAD NECK W CONTRAST LOCATION: [facility] DATE: 07/12/2024 INDICATION: ams and [...] CONTRAST, CTA HEAD NECK W CONTRAST LOCATION: [facility] DATE: 07/12/2024 INDICATION: ams and [...] vascular malformation involving the arteries of the deering of[place]is. NECK CTA: 1. Normal configuration of [...] 1:49 am on 07/12/2024. Avery Fernando MD [facility] CT ORDERABLES Final Result * CT Head [...] vascular malformation involving the arteries of the deering of [place]. NECK CTA: 1. Normal configuration [...] CONTRAST, CTA HEAD NECK W CONTRAST LOCATION: [facility] DATE: 07/12/2024 INDICATION: ams and [...] CONTRAST, CTA HEAD NECK W CONTRAST LOCATION: [facility] DATE: 07/12/2024 INDICATION: ams and [...] vascular malformation involving the arteries of the deering of[place]is. NECK CTA: 1. Normal configuration of [...] CDT RH BLOOD BANK SPECIMEN EXPIRATION DATE [id number] 07/12/2024 1:01 AM CDT RH BLOOD BANK Blood BLOOD SPECIMEN / Unknown Venipuncture / Unknown 07/12/2024 1:14 AM CDT 07/12/2024 1:23 AM CDT Avery Fernando MD LAB - BLOOD BANK TEST ORDER Summer l Result BLOOD BANK [address] [place] [address] * Extra Red Top Tube (07/12/2024 1:14 AM CDT) Hold Specimen JIC 07/12/2024 2:31 AM CDT [facility] LABORATORY Blood BLOOD SPECIMEN / Unknown Venipuncture / Unknown 07/12/2024 1:14 AM CDT 07/12/2024 1:23 AM CDT us Aevry Fernando MD LAB - BLOOD ORDERABLES Final Res ult [facility] LABORATORY [facility] Acute Care Lab [address] [facility] Lab (1st floor, no room number) [place] [phone] * (ABNORMAL) CBC with [...] BLOOD ORDERABLES Final Res ult [facility] LABORATORY [facility] Acute Care Lab [address] Lab (1st floor, no room number) [place] [address], [facility] * (ABNORMAL) INR (07/12/2024 1:14 AM CDT) INR 4.68(H) 0.85 - 1.15 07/12/2024 1:49 AM CDT [facility] LABORATORY Blood BLOOD SPECIMEN / Unknown Venipuncture / Unknown 07/12/2024 1:14 AM CDT 07/12/2024 1:23 AM CDT Avery Fernando MD LAB - BLOOD ORDERABLES Final Res ult [facility] LABORATORY [facility] Acute Care Lab [address] Lab (1st floor, no room number) [place] [address] * Blood Culture Peripheral Blood (07/12/2024 1:14 AM CDT) Culture No Growth 07/17/2024 4:46 AM CDT [facility] Blood BLOOD SPECIMEN / Unknown Venipuncture / Unknown 07/12/2024 1:14 AM CDT 07/12/2024 1:23 AM CDT Avery Fernando MD LAB - MICRO GENERAL ORDERABLES F inal Result [facility] Inf. Diseases Diag. Lab [address] [facility] [place] [address] * Hepatic function panel (07/12/2024 1:14 [...] - BLOOD ORDERABLES Final Res ult LABORATORY [facility] Acute Care Lab [address] Lab (1st floor, no room number) [place] [phone] [place] [address] * Lactic acid whole blood (07/12/2024 1:14 AM CDT) Lactic Acid 0.8 0.7 - 2.0 mmol/L 07/12/2024 1:27 AM CDT LABORATORY Blood BLOOD SPECIMEN / Unknown Venipuncture / Unknown 07/12/2024 1:14 AM CDT 07/12/2024 1:23 AM CDT Avery Fernando MD LAB - BLOOD ORDERABLES Final Res ult LABORATORY [facility] [address] [facility], no room number[facility] [address] * (ABNORMAL) Troponin T, High Sensitivity [...] - BLOOD ORDERABLES Final Res ult LABORATORY [facility] Acute Care Lab [address] Lab (1st floor, no room number) [place] [address], [facility] * (ABNORMAL) Basic metabolic panel (07/12/2024 [...] - BLOOD ORDERABLES Final Res ult LABORATORY [facility] Lab [address] Lab (1st floor, no room number) [place] [address] * (ABNORMAL) Glucose by meter (07/12/2024 1:13 AM CDT) GLUCOSE BY METER POCT 133(H) 70 - 99 mg/dL 07/12/2024 1:20 AM CDT LABORATORY POC Blood, venous BLOOD SPECIMEN / Unknown 07/12/2024 1:13 AM CDT 07/12/2024 1:20 AM CDT us Avery Fernando MD LAB - BEAKER POCT Final Result Performing Organization Address City/[facility]/ZIP Co de Phone Number LABORATORY [facility] Lab [address] Lab (1st floor, no room number) [place] [phone], [facility] * EKG 12-lead, tracing only (07/12/2024 12:24 AM CDT) Systolic Blood Pressure mmHg RADIOLOGY RESULTS Diastolic Blood Pressure mmHg RADIOLOGY RESULTS Ventricular Rate 65 BPM RAD IOLOGY RESULTS Atrial Rate 65 BPM RADIOLOG Y RESULTS DC Interval 234 ms RADIOLOG Y RESULTS QRS Duration 112 ms RADIOLO GY RESULTS QT 430 ms RADIOLOGY RESULTS QTc 447 ms RADIOLOGY RESULTS P [place] 53 degrees RADIOLOGY RESULTS R AXIS 10 degrees RADIOLOGY RESULTS T [place] 51 degrees RADIOLOGY RESULTS Interpretation ECG Sinus rhythm with 1st degree A-V block Otherwise normal ECG When compared with ECG of 23-May-2024 17:08, Criteria for Septal infarct are no longer Present Unconfirmed report - interpretation of this ECG is computer generated - see medical record for final interpretation Confirmed by - EMERGENCY ROOM, PHYSICIAN ([id number]), subeditor YISSEL VELASQUEZ ([id number]) on 07/12/2024 6:51:31 AM [...] scan. documented in this encounter Care Teams Dishwasher Busser Relationship Specialty Start Date End Date Preet Huff PCP - General 06/24/11 documented as of this encounter
[2024-08-31 13:41] LABS: Basophils Percent Auto 0.3 % (0.0-3.0); Eosinophils Percent Auto 1.4 % (0.0-7.0); Hematocrit 40.6 % (37.0-53.0); Hemoglobin* 12.3 gm/dL (13.5-17.5); Immature Granulocytes Pct Auto 0.3 %; Lymphocytes Percent Auto 14.4 % (20-44); Mean Corpuscular HGB Conc 30 gm/dL (32-36); Mean Corpuscular Hemoglobin 25 pg (26-34); Mean Corpuscular Volume 84 fL (80-100); Monocytes Percent Auto 14.4 % (0.0-11.0); Neutrophils Percent Auto 69.2 % (42.0-72.0); Platelet Count* 99 K/uL (140-440); RDW Coefficient of Variation % 19.4 % (11.5-15.5); Red Blood Count 4.85 m/uL (4.30-5.90); White Blood Count* 3.69 K/uL (4.50-11.00)
--- OUTSIDE RECORDS SUMMARY | 2024-08-31 13:41 | XMS_ITS | Encounter Summary ---
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) [facility] Emergency Dept [address] [place] [address] Phone: tel:[phone] fax: Referral ID Status Reason Start Date Expiration Date Visits Re quested Visits Authorized [id number] 1 1 Encounter Details Date Type Department Care Team (Late st Contact Info) Description 05/23/2024 6:02 PM CDT Anesthesia Event [facility]iOp Services [address] [place] [address] Tom Castro MD [facility] [id number] [place] [address] Pan Michelle MD [facility] [address] [place] [address] Anesthesia Record Procedure Summary Procedure Name Responsible Anesthesiologist Anesthesia Start Time Anesthesia Stop Time Incision and drainage, debridement of scrotal skin and subcutaneous tissues for necrotizing soft tissue infection of the scrotum (Scrotum) Tom Castro MD 05/23/24 18005/23/241918 Events Date Time Event Comment 05/23/2024 1711 1718 LOSS CONTROL ENGINEER Ready for Procedure 180 AN REASSESS I attest that I have identified and re-evaluated the patient immediately before the induction of anesthesia and I am satisfied that the anesthetic plan is suitable for the patient's condition and procedure. The first vital signs recorded are pre- induction. Donnell Ramos APRN LOSS CONTROL ENGINEER 1801 An Start Anesthesia Star t is [...] Tube Size: 8 mm; VL Blade Size: [place] scope 3; Grade View: 1; Placement Person: LOSS CONTROL ENGINEER; Attempts: 1 05/23/24 182 by Donnell Ramos APRN LOSS CONTROL ENGINEER 05/23/24 191 by Donnell Ramos APRN LOSS CONTROL ENGINEER Urethral Catheter 05/23/24; 1839; No; Surgical procedure; [...] on file Legal Sex Male 5:12 AM FASHION BUYER Gender Identity Male 12/05/2017 10:39 AM FASHION BUYER Sexual Orientation Not on file documented as [...] Anesthesia Procedure Notes - Donnell Ramos APRN LOSS CONTROL ENGINEER - 05/23/2024 6:31 PM CDT Associated Order(s): Airway Airway Patient location during procedure: OR Procedure Start/Stop Times: 05/23/2024 6:21 PM Staff - LOSS CONTROL ENGINEER: Yasemin Almaguer APRN LOSS CONTROL ENGINEER Performed By: CRNAIndications and Patient Condition Indications [...] ESRD (end stage renal disease) (H) dialysis [facility] History of staph septicemia 12/20/2015 [...] and realistic alternatives discussed. Questions answered and patient/videotape sales representative(s) expressed understanding. - Discussed: - Discussed with: Patient - Extended Intubation/Ventilatory Support Discussed: No. - Patient is DNR/DNI Status: No Use of blood products discussed: No . Postoperative Care Pain management: IV analgesics, Oral pain medications, Multi-modal analgesia. PONV prophylaxis: Ondansetron (or other 5HT-3), Dexamethasone or Solumedrol Comments: Pna Michelle MD I have reviewed the pertinent [...] st Contact Info) Description 09/27/2024 1:00 PM FASHION BUYER Office Visit [facility] [place] [address] [place] [phone] Rober Saravia MD [address] [place] [address] documented as of this encounter Procedures Procedure Name Priority Date/Time Associated Diagnosis Comments ANE AIRWAY ETT PERFORMABLE Routine 05/23/2024 6:21 PM CDT documented in this encounter Results * ANE AIRWAY ETT PERFORMABLE (05/23/2024 6:21 PM CDT) Narrative Donnell Ramos APRN LOSS CONTROL ENGINEER - 05/23/2024 6:21 PM CDT Donnell Ramos APRN LOSS CONTROL ENGINEER 05/23/2024 6:33 PM Airway Patient location during procedure: OR Procedure Start/Stop Times: 05/23/2024 6:21 PM Staff - LOSS CONTROL ENGINEER: Yasemin Almaguer APRN CRNA Performed By: CRNAIndications [...] Time: 05/23/2024 6:21 PM Tom Castro MD [facility] Final Result documented in this encounter [...] mg documented in this encounter Care Teams Well Logger Relationship Specialty Start Date End Date Preet Huff PCP - General 06/24/11 documented as of this encounter
--- OUTSIDE RECORDS SUMMARY | 2024-08-31 13:41 | XMS_ITS | Encounter Summary ---
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 monitored Medication [...] Protection Recent Flowsheet Documentation Taken 05/27/2024919 by Eide Pack RN Activity Management: bedrest Head of [...] documentation flowsheets. Pertinent assessments: Assumed cares @ [phone].Disoriented to time and situation. VSS on RA. [...] bedrest * Pharmacy-Anticoagulation Service - Luis Collado [facility] - 05/26/2024 4:50 PM CDT Clinical Pharmacy - Warfarin Dosing Consult Pharmacy has been consulted to manage this patient???s warfarin therapy. 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 Outcome: Progressing Flowsheets (Taken 05/24/2024 4388) Outcome Evaluation: Scrotal dressing changed twice. Did [...] member and Thelma (aunt) via phone and [phone] Pertinent Information: outside meds--none added Changes made to ACTION INSTALLER medication list: Added: none Deleted: norvasc, lipitor, Changed: protonix Allergies reviewed with patient and updates made in EHR: yes Medication History Completed By: Graham Joseph RPH 05/23/2024 9:51 PM ACTION INSTALLER Med List Medication Sig Last Dose B Kbglyzm-E-Xiafk Acid (WESCAPS PO) Take 1 capsule by [...] in stable condition. 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 Office Visit [facility] Evelio [address] [place] [phone] Jaxon Buenrostro MD [address] [place] [address] Scheduled Referrals Name Type Priority Associated Diagnoses [...] BEAKER POCT Final Resul t RH LABORATORY [facility] Lab [address] [facility] Lab (1st floor, no room number) [place] [address], [facility] * Glucose by meter (05/30/2024 7:13 AM CDT) GLUCOSE BY METER POCT 82 70 - 99 mg/dL 05/30/2024 7:19 AM CDT RH LABORATORY POC Blood, Capillary BLOOD SPECIMEN / Unknown 05/30/2024 7:13 AM CDT 05/30/2024 7:19 AM CDT Antonino Cheek MD LAB - BEAKER POCT Final Resul t LABORATORY [facility] Lab [address] Lab (1st floor, no room number) [place] [address] * (ABNORMAL) INR (05/30/2024 6:54 AM CDT) INR 2.26(H) 0.85 - 1.15 05/30/2024 7:20 AM CDT LABORATORY Blood STRUCTURE OF RIGHT HAND / Unknown Venipuncture / Unknown 05/30/2024 6:54 AM CDT 05/30/2024 7:06 AM CDT Antonino Cheek MD LAB - BLOOD ORDERABLES Final Result LABORATORY [facility] Care Lab [address] Lab (1st floor, no room number) [place] [address] * (ABNORMAL) Basic metabolic panel [...] - BLOOD ORDERABLES Final Result RH LABORATORY [facility] Acute Care Lab [address] Lab (1st floor, no room number) [place] [address] * (ABNORMAL) CBC with platelets [...] LAB - BLOOD ORDERABLES Final Result LABORATORY [facility] Lab [address] Lab (1st floor, no room number) [address] [place] [address] * (ABNORMAL) Glucose by meter (05/30/2024 2:18 AM CDT) GLUCOSE BY METER POCT 138(H) 70 - 99 mg/dL 05/30/2024 2:24 AM CDT LABORATORY POC Blood, Capillary BLOOD SPECIMEN / Unknown 05/30/2024 2:18 AM CDT 05/30/2024 2:24 AM CDT us Antonino Cheek MD LAB - BEAKER POCT Final Resul t LABORATORY [facility] Lab [address] Lab (1st floor, no room number) [place] [phone] * (ABNORMAL) Glucose by meter (05/29/2024 9:28 PM CDT) GLUCOSE BY METER POCT 160(H) 70 - 99 mg/dL 05/29/2024 9:35 PM CDT LABORATORY POC Blood, Capillary BLOOD SPECIMEN / Unknown 05/29/2024 9:28 PM CDT 05/29/2024 9:35 PM CDT Antonino Cheek MD LAB - BEAKER POCT Final Resul t LABORATORY [facility] Lab [address] Lab (1st floor, no room number) [address] * (ABNORMAL) Glucose by meter (05/29/2024 5:54 PM CDT) GLUCOSE BY METER POCT 159(H) 70 - 99 mg/dL 05/29/2024 6:01 PM CDT RH LABORATORY POC Blood, Capillary BLOOD SPECIMEN / Unknown 05/29/2024 5:54 PM CDT 05/29/2024 6:01 PM CDT us Antonino Cheek MD LAB - BEAKER POCT Final Resul t Performing Organization Address [facility]/ZIP Co de Phone Number LABORATORY [facility] Lab [address] Lab (1st floor, no room number) [address] * (ABNORMAL) Glucose by meter (05/29/2024 1:41 PM CDT) GLUCOSE BY METER POCT 158(H) 70 - 99 mg/dL 05/29/2024 1:48 PM CDT LABORATORY POC Blood, Capillary BLOOD SPECIMEN / Unknown 05/29/2024 1:41 PM CDT 05/29/2024 1:48 PM CDT Antonino Cheek MD LAB - BEAKER POCT Final Resul t LABORATORY [facility] Lab [address] Lab (1st floor, no room number) [address] * Glucose by meter (05/29/2024 7:54 AM CDT) GLUCOSE BY METER POCT 90 70 - 99 mg/dL 05/29/2024 8:01 AM CDT RH LABORATORY POC Blood, Capillary BLOOD SPECIMEN / Unknown 05/29/2024 7:54 AM CDT 05/29/2024 8:01 AM CDT Antonino Cheek MD LAB - BEAKER POCT Final Resul t LABORATORY POC [facility] Acute Care Lab [address] Lab (1st floor, no room number) [place] [address] * (ABNORMAL) INR (05/29/2024 6:22 AM CDT) INR 1.92(H) 0.85 - 1.15 05/29/2024 6:52 AM CDT LABORATORY Blood STRUCTURE OF RIGHT HAND / Unknown Venipuncture / Unknown 05/29/2024 6:22 AM CDT 05/29/2024 6:40 AM CDT Antonino Cheek MD LAB - BLOOD ORDERABLES Final Result LABORATORY [facility] Care Lab [address] Lab (1st floor, no room number) [place] [phone] * (ABNORMAL) Basic metabolic panel [...] - BLOOD ORDERABLES Final Result RH LABORATORY [facility] Acute Care Lab [address] [facility] Lab (1st floor, no room number) [place] [address] * (ABNORMAL) CBC with platelets [...] LAB - BLOOD ORDERABLES Final Result LABORATORY [facility] Lab [address] Lab (1st floor, no room number) [address] [place] [address] * (ABNORMAL) Glucose by meter (05/29/2024 2:26 AM CDT) GLUCOSE BY METER POCT 103(H) 70 - 99 mg/dL 05/29/2024 2:33 AM CDT LABORATORY POC Blood, Capillary BLOOD SPECIMEN / Unknown 05/29/2024 2:26 AM CDT 05/29/2024 2:33 AM CDT us Antonino Cheek MD LAB - BEAKER POCT Final Resul t LABORATORY [facility] Lab [address] Lab (1st floor, no room number) [place] [phone] * (ABNORMAL) Glucose by meter (05/28/2024 9:50 PM CDT) GLUCOSE BY METER POCT 102(H) 70 - 99 mg/dL 05/28/2024 9:56 PM CDT RH LABORATORY POC Blood, Capillary BLOOD SPECIMEN / Unknown 05/28/2024 9:50 PM CDT 05/28/2024 9:56 PM CDT Antonino Cheek MD LAB - BEAKER POCT Final Resul t LABORATORY [facility] Lab [address] Lab (1st floor, no room number) [place] [phone] [place] [address] * (ABNORMAL) Glucose by meter (05/28/2024 5:08 PM CDT) GLUCOSE BY METER POCT 254(H) 70 - 99 mg/dL 05/28/2024 5:16 PM CDT LABORATORY POC Blood, Capillary BLOOD SPECIMEN / Unknown 05/28/2024 5:08 PM CDT 05/28/2024 5:16 PM CDT Antonino Cheek MD LAB - BEXIANG POCT Final Resul t Performing Organization Address [facility]/ZIP Co de Phone Number LABORATORY [facility] Lab [address] Lab (1st floor, no room number) [place] [address], [facility] * Glucose by meter (05/28/2024 1:58 PM CDT) GLUCOSE BY METER POCT 91 70 - 99 mg/dL 05/28/2024 2:05 PM CDT LABORATORY POC Blood, Capillary BLOOD SPECIMEN / Unknown 05/28/2024 1:58 PM CDT 05/28/2024 2:05 PM CDT Antonino Cheek MD LAB - BEAKER POCT Final Resul t LABORATORY [facility] Lab [address] Lab (1st floor, no room number) [place] [phone], [facility] * (ABNORMAL) Glucose by meter (05/28/2024 7:48 AM CDT) GLUCOSE BY METER POCT 128(H) 70 - 99 mg/dL 05/28/2024 7:54 AM CDT RH LABORATORY POC Blood, Capillary BLOOD SPECIMEN / Unknown 05/28/2024 7:48 AM CDT 05/28/2024 7:54 AM CDT us Antonino Cheek MD LAB - BEAKER POCT Final Resul t LABORATORY POC [facility] Care Lab [address] Lab (1st floor, no room number) [address] [place] [address] * Extra Purple Top EDTA (LAB USE ONLY) (05/28/2024 6:07 AM CDT) Hold Specimen [facility] 05/28/2024 7:32 AM CDT RH LABORATORY Blood STRUCTURE OF LEFT HAND / Unknown Venipuncture / Unknown 05/28/2024 6:07 AM CDT 05/28/2024 6:17 AM CDT us Antonino Cheek MD LAB - BLOOD ORDERABLES Final Result [facility] Lab [address] Lab (1st floor, no room number) [place] [phone] [place] [address] * Extra Green Top Tube (LAB USE ONLY) (05/28/2024 6:07 AM CDT) Hold Specimen [facility] 05/28/2024 7:32 AM CDT RH LABORATORY Blood STRUCTURE OF LEFT HAND / Unknown Venipuncture / Unknown 05/28/2024 6:07 AM CDT 05/28/2024 6:17 AM CDT us Antonino Cheek MD LAB - BLOOD ORDERABLES Final Result [facility] Care Lab [address] Lab (1st floor, no room number) [address] [place] [address] * (ABNORMAL) INR (05/28/2024 6:07 AM CDT) INR 1.87(H) 0.85 - 1.15 05/28/2024 6:27 AM CDT LABORATORY Blood STRUCTURE OF LEFT HAND / Unknown Venipuncture / Unknown 05/28/2024 6:07 AM CDT 05/28/2024 6:17 AM CDT us Antonino Cheek MD LAB - BLOOD ORDERABLES Final Result LABORATORY [facility] Care Lab [address] Lab (1st floor, no room number) [place] [phone] * (ABNORMAL) Hemoglobin (05/28/2024 6:07 AM CDT) Hemoglobin 7.7(L) 13.3 - 17.7 g/dL 05/28/2024 9:02 AM CDT LABORATORY Blood STRUCTURE OF LEFT HAND / Unknown Venipuncture / Unknown 05/28/2024 6:07 AM CDT 05/28/2024 6:17 AM CDT Dileep Anders MD LAB - BLOOD ORDERABLES Final Result LABORATORY [facility] Care Lab [address] Lab (1st floor, no room number) [place] [address] * (ABNORMAL) Basic metabolic panel [...] BLOOD ORDERABLES Final Result Performing Organization Address City/State/[facility] Co de Phone Number LABORATORY [facility] Care Lab [address] Lab (1st floor, no room number) [place] [address], [facility] * (ABNORMAL) Glucose by meter (05/28/2024 2:19 AM CDT) [facility] GLUCOSE BY METER POCT 102(H) 70 - 99 mg/dL 05/28/2024 2:26 AM CDT LABORATORY POC Blood, Capillary BLOOD SPECIMEN / Unknown 05/28/2024 2:19 AM CDT 05/28/2024 2:26 AM CDT Antonino Cheek MD LAB - BEAKER POCT Final Resul t LABORATORY [facility] Lab [address] Lab (1st floor, no room number) [place] [phone] [place] [address] * (ABNORMAL) Glucose by meter (05/27/2024 9:05 PM CDT) GLUCOSE BY METER POCT 148(H) 70 - 99 mg/dL 05/27/2024 9:13 PM CDT RH LABORATORY POC Blood, Capillary BLOOD SPECIMEN / Unknown 05/27/2024 9:05 PM CDT 05/27/2024 9:13 PM CDT us Antonino Cheek MD LAB - BEAKER POCT Final Resul t Performing Organization Address City/[facility]/ZIP Co de Phone Number LABORATORY [facility] Lab [address] Lab (1st floor, no room number) [address] [place] [address] * (ABNORMAL) Glucose by meter (05/27/2024 5:11 PM CDT) GLUCOSE BY METER POCT 148(H) 70 - 99 mg/dL 05/27/2024 5:20 PM CDT RH LABORATORY POC Blood, Capillary BLOOD SPECIMEN / Unknown 05/27/2024 5:11 PM CDT 05/27/2024 5:20 PM CDT us Antonino Cheek MD LAB - BEAKER POCT Final Resul t LABORATORY [facility] Lab [address] Lab (1st floor, no room number) [place] [phone] [place] [address] * (ABNORMAL) Glucose by meter (05/27/2024 11:42 AM CDT) GLUCOSE BY METER POCT 149(H) 70 - 99 mg/dL 05/27/2024 11:49 AM CDT RH LABORATORY POC Blood, Capillary BLOOD SPECIMEN / Unknown 05/27/2024 11:42 AM CDT 05/27/2024 11:49 AM CDT Antonino Cheek MD LAB - BEAKER POCT Final Resul t Performing Organization Address [facility]/ZIP Co de Phone Number LABORATORY [facility] Lab [address] Lab (1st floor, no room number) [place] [phone] [place] [address] * (ABNORMAL) Glucose by meter (05/27/2024 7:44 AM CDT) GLUCOSE BY METER POCT 108(H) 70 - 99 mg/dL 05/27/2024 7:51 AM CDT LABORATORY POC Blood, Capillary BLOOD SPECIMEN / Unknown 05/27/2024 7:44 AM CDT 05/27/2024 7:51 AM CDT us Antonino DEAN - BEAKER POCT Final Resul t Performing Organization Address [facility] Co de Phone Number LABORATORY [facility] Lab [address] Lab (1st floor, no room number) [place] [phone], [facility] * (ABNORMAL) INR (05/27/2024 7:03 AM CDT) INR 1.81(H) 0.85 - 1.15 05/27/2024 7:17 AM CDT LABORATORY Blood STRUCTURE OF RIGHT HAND / Unknown Venipuncture / Unknown 05/27/2024 7:03 AM CDT 05/27/2024 7:07 AM CDT us Antonino Cheek MD LAB - BLOOD ORDERABLES Final Result Performing Organization Address City/[facility]/ZIP Co de Phone Number [facility] Lab [address] Lab (1st floor, no room number) [place] [phone], [facility] * (ABNORMAL) Glucose by meter (05/27/2024 2:03 AM CDT) GLUCOSE BY METER POCT 157(H) 70 - 99 mg/dL 05/27/2024 2:10 AM CDT LABORATORY POC Blood, Capillary BLOOD SPECIMEN / Unknown 05/27/2024 2:03 AM CDT 05/27/2024 2:10 AM CDT Antonino Cheek MD LAB - BEAKER POCT Final Resul t LABORATORY [facility] Care Lab [address] Lab (1st floor, no room number) [place] [address], [facility] * (ABNORMAL) Glucose by meter (05/26/2024 9:29 PM CDT) GLUCOSE BY METER POCT 155(H) 70 - 99 mg/dL 05/26/2024 9:37 PM CDT LABORATORY POC Blood, Capillary BLOOD SPECIMEN / Unknown 05/26/2024 9:29 PM CDT 05/26/2024 9:37 PM CDT Antonino Cheek MD LAB - BEAKER POCT Final Resul t Performing Organization Address [facility]/ZIP Co de Phone Number LABORATORY [facility] Lab [address] Lab (1st floor, no room number) [place] [address], [facility] * (ABNORMAL) Glucose by meter (05/26/2024 4:10 PM CDT) GLUCOSE BY METER POCT 174(H) 70 - 99 mg/dL 05/26/2024 4:19 PM CDT LABORATORY POC Blood, Capillary BLOOD SPECIMEN / Unknown 05/26/2024 4:10 PM CDT 05/26/2024 4:19 PM CDT us Antonino Cheek MD LAB - BEAKER POCT Final Resul t LABORATORY [facility] Lab [address] Lab (1st floor, no room number) [place] [phone] * (ABNORMAL) INR (05/26/2024 4:09 PM CDT) INR 1.67(H) 0.85 - 1.15 05/26/2024 4:28 PM CDT RH LABORATORY Blood STRUCTURE OF LEFT UPPER LIMB / Unknown Venipuncture / Unknown 05/26/2024 4:09 PM CDT 05/26/2024 4:15 PM CDT Antonino Cheek MD LAB - BLOOD ORDERABLES Final Result [facility] Lab [address] Lab (1st floor, no room number) [place] [phone] * (ABNORMAL) Glucose by meter (05/26/2024 11:37 AM CDT) GLUCOSE BY METER POCT 197(H) 70 - 99 mg/dL 05/26/2024 11:44 AM CDT LABORATORY POC Blood, Capillary BLOOD SPECIMEN / Unknown 05/26/2024 11:37 AM CDT 05/26/2024 11:44 AM CDT Antonino Cheek MD LAB - BEAKER POCT Final Resul t LABORATORY [facility] Lab [address] Lab (1st floor, no room number) [place] [phone] * Glucose by meter (05/26/2024 8:22 AM CDT) GLUCOSE BY METER POCT 85 70 - 99 mg/dL 05/26/2024 8:29 AM CDT LABORATORY POC Blood, Capillary BLOOD SPECIMEN / Unknown 05/26/2024 8:22 AM CDT 05/26/2024 8:29 AM CDT us Antonino Cheek MD LAB - BEAKER POCT Final Resul t RH LABORATORY [facility] Lab [address] Lab (1st floor, no room number) [place] [address], [facility] * (ABNORMAL) CBC with [...] LAB - BLOOD ORDERABLES Final Result LABORATORY [facility] Care Lab [address] [facility] Lab (1st floor, no room number) [place] [address], [facility] * (ABNORMAL) Basic metabolic [...] LAB - BLOOD ORDERABLES Final Result LABORATORY [facility] Lab [address] Lab (1st floor, no room number) [place] [address] * (ABNORMAL) Glucose by meter (05/26/2024 1:57 AM CDT) [facility] GLUCOSE BY METER POCT 123(H) 70 - 99 mg/dL 05/26/2024 2:04 AM CDT LABORATORY POC Blood, Capillary BLOOD SPECIMEN / Unknown 05/26/2024 1:57 AM CDT 05/26/2024 2:04 AM CDT Antonino Cheek MD LAB - BEAKER POCT Final Resul t LABORATORY POC [facility] Care Lab [address] Lab (1st floor, no room number) [address] * (ABNORMAL) Glucose by meter (05/25/2024 9:32 PM CDT) GLUCOSE BY METER POCT 155(H) 70 - 99 mg/dL 05/25/2024 9:39 PM CDT LABORATORY POC Blood, Capillary BLOOD SPECIMEN / Unknown 05/25/2024 9:32 PM CDT 05/25/2024 9:39 PM CDT us Antonino Cheek MD LAB - BEAKER POCT Final Resul t LABORATORY [facility] Lab [address] Lab (1st floor, no room number) [address] * (ABNORMAL) Glucose by meter (05/25/2024 7:06 PM CDT) GLUCOSE BY METER POCT 183(H) 70 - 99 mg/dL 05/25/2024 7:14 PM CDT LABORATORY POC Blood, Capillary BLOOD SPECIMEN / Unknown 05/25/2024 7:06 PM CDT 05/25/2024 7:14 PM CDT us Antonino Cheek MD LAB - BEAKER POCT Final Resul t LABORATORY [facility] Lab [address] Lab (1st floor, no room number) [address] * (ABNORMAL) Glucose by meter (05/25/2024 5:29 PM CDT) GLUCOSE BY METER POCT 142(H) 70 - 99 mg/dL 05/25/2024 5:36 PM CDT LABORATORY POC Blood, Capillary BLOOD SPECIMEN / Unknown 05/25/2024 5:29 PM CDT 05/25/2024 5:36 PM CDT us Antonino Cheek MD LAB - BEAKER POCT Final Resul t LABORATORY [facility] Lab [address] Lab (1st floor, no room number) [place] [phone] [place] [address] * Vancomycin level (05/25/2024 2:04 PM CDT) Vancomycin 11.9 ug/mL 05/25/2024 3:28 PM CDT LABORATORY Comment: Traditional Dosing Therapeutic Range: Trough 10-15 ug/mL Peak 20-40 ug/mL Critical: Greater than 25.0 ug/mL Blood STRUCTURE OF RIGHT UPPER LIMB / Unknown Venipuncture / Unknown 05/25/2024 2:04 PM CDT 05/25/2024 2:07 PM CDT Antonino Cheek MD LAB - BLOOD ORDERABLES Final Result Performing Organization Address [facility]/ZIP Co de Phone Number [facility] Lab [address] Lab (1st floor, no room number) [place] [phone] * Extra Purple Top EDTA (LAB USE ONLY) (05/25/2024 2:04 PM CDT) Hold Specimen [facility] 05/25/2024 3:17 PM CDT LABORATORY Blood STRUCTURE OF RIGHT UPPER LIMB / Unknown Venipuncture / Unknown 05/25/2024 2:04 PM CDT 05/25/2024 2:07 PM CDT Antonino Cheek MD LAB - BLOOD ORDERABLES Final Result [facility] [address] Lab (1st floor, no room number) [place] [id number] * Extra Green Top Tube (LAB USE ONLY) (05/25/2024 2:04 PM CDT) Hold Specimen [facility] 05/25/2024 3:17 PM CDT LABORATORY Blood STRUCTURE OF RIGHT UPPER LIMB / Unknown Venipuncture / Unknown 05/25/2024 2:04 PM CDT 05/25/2024 2:07 PM CDT Antonino Cheek MD LAB - BLOOD ORDERABLES Final Result LABORATORY [facility] Care Lab [address] Lab (1st floor, no room number) [place] [address] * Glucose by meter (05/25/2024 2:01 PM CDT) GLUCOSE BY METER POCT 70 70 - 99 mg/dL 05/25/2024 2:08 PM CDT LABORATORY POC Blood, Capillary BLOOD SPECIMEN / Unknown 05/25/2024 2:01 PM CDT 05/25/2024 2:08 PM CDT Antonino Cheek MD LAB - BEAKER POCT Final Resul t LABORATORY POC [facility] Lab [address] Lab (1st floor, no room number) [place] [address] * Hepatitis B surface antigen (05/25/2024 9:25 AM CDT) Hepatitis B Surface Antigen Nonreactive Nonreactive 05/25/2024 2:23 PM CDT U LABORATORY Blood BLOOD SPECIMEN / Unknown Venipuncture / Unknown 05/25/2024 9:25 AM CDT 05/25/2024 10:13 AM CDT Jose Enrique Naylor MD LAB - BLOOD ORDERABLES Final Res ult UU LABORATORY [facility] [address] [place] [address], [facility] * Hepatitis B Surface Antibody (05/25/2024 [...] BLOOD ORDERABLES Final Res ult U LABORATORY [facility] [address] [place] [address] * Glucose by meter (05/25/2024 5:35 AM CDT) GLUCOSE BY METER POCT 86 70 - 99 mg/dL 05/25/2024 5:42 AM CDT LABORATORY POC Blood, Capillary BLOOD SPECIMEN / Unknown 05/25/2024 5:35 AM CDT 05/25/2024 5:42 AM CDT us Antonino Cheek MD LAB - BEAKER POCT Final Resul t LABORATORY [facility] Lab [address] [facility] Lab (1st floor, no room number) [place] [address] * Glucose by meter (05/25/2024 2:01 AM CDT) GLUCOSE BY METER POCT 86 70 - 99 mg/dL 05/25/2024 2:08 AM CDT LABORATORY POC Blood, Capillary BLOOD SPECIMEN / Unknown 05/25/2024 2:01 AM CDT 05/25/2024 2:08 AM CDT us Antonino DEAN - BEAKER POCT Final Resul t LABORATORY [facility] [address] Lab (1st floor, no room number) [place] [address], [facility] * Glucose by meter (05/24/2024 8:52 PM CDT) GLUCOSE BY METER POCT 96 70 - 99 mg/dL 05/24/2024 8:59 PM CDT LABORATORY POC Blood, Capillary BLOOD SPECIMEN / Unknown 05/24/2024 8:52 PM CDT 05/24/2024 8:59 PM CDT us Antonino DEAN - BEXIANG POCT Final Resul t LABORATORY [facility] [address] Lab (1st floor, no room number) [place] [address], [facility] * Glucose by meter (05/24/2024 5:05 PM CDT) GLUCOSE BY METER POCT 84 70 - 99 mg/dL 05/24/2024 5:32 PM CDT LABORATORY POC Blood, Capillary BLOOD SPECIMEN / Unknown 05/24/2024 5:05 PM CDT 05/24/2024 5:32 PM CDT us Antonino DEAN - BEXIANG POCT Final Resul t LABORATORY [facility] [address] Lab (1st floor, no room number) [place] [address], [facility] * (ABNORMAL) INR (05/24/2024 2:16 PM CDT) INR 1.16(H) 0.85 - 1.15 05/24/2024 2:34 PM CDT RH LABORATORY Blood BLOOD SPECIMEN / Unknown Venipuncture / Unknown 05/24/2024 2:16 PM CDT 05/24/2024 2:21 PM CDT us Lizandro Barron MD LAB - BLOOD ORDERABLES Final Re sult [facility] Lab [address] Lab (1st floor, no room number) [address] [place] [address] * Glucose by meter (05/24/2024 12:20 PM CDT) GLUCOSE BY METER POCT 75 70 - 99 mg/dL 05/24/2024 12:26 PM CDT LABORATORY POC Blood, Capillary BLOOD SPECIMEN / Unknown 05/24/2024 12:20 PM CDT 05/24/2024 12:26 PM CDT us Antonino DEAN - BEAKER POCT Final Resul t Performing Organization Address [facility]/ZIP Co de Phone Number [facility] Lab [address] Lab (1st floor, no room number) [place] [phone] * Glucose by meter (05/24/2024 9:12 AM CDT) GLUCOSE BY METER POCT 86 70 - 99 mg/dL 05/24/2024 9:19 AM CDT LABORATORY POC Blood, Capillary BLOOD SPECIMEN / Unknown 05/24/2024 9:12 AM CDT 05/24/2024 9:19 AM CDT us Antonino Cheek MD LAB - BEAKER POCT Final Resul t Performing Organization Address City/[facility]/ZIP Co de Phone Number LABORATORY [facility] [address] Lab (1st floor, no room number) [place] [address], [facility] * (ABNORMAL) CBC with [...] LAB - BLOOD ORDERABLES Final Result LABORATORY [facility] Lab [address] Lab (1st floor, no room number) [place] [address], [facility] * (ABNORMAL) Comprehensive metabolic [...] - BLOOD ORDERABLES Final Result RH LABORATORY [facility] Lab [address] Lab (1st floor, no room number) [place] [address], [facility] * INR (05/24/2024 6:09 AM CDT) INR 1.14 0.85 - 1.15 05/24/2024 6:27 AM CDT RH LABORATORY Blood STRUCTURE OF LEFT HAND / Unknown Venipuncture / Unknown 05/24/2024 6:09 AM CDT 05/24/2024 6:14 AM CDT Lizandro Barron MD LAB - BLOOD ORDERABLES Final Re sult LABORATORY [facility] Lab [address] Lab (1st floor, no room number) [place] [address], [facility] * (ABNORMAL) Glucose by meter (05/24/2024 4:49 AM CDT) GLUCOSE BY METER POCT 119(H) 70 - 99 mg/dL 05/24/2024 4:56 AM CDT LABORATORY POC Blood, Capillary BLOOD SPECIMEN / Unknown 05/24/2024 4:49 AM CDT 05/24/2024 4:56 AM CDT us Antonino DEAN - BEAKER POCT Final Resul t Performing Organization Address [facility]/ZIP Co de Phone Number LABORATORY [facility] [address] Lab (1st floor, no room number) [place] [address], [facility] * (ABNORMAL) Glucose by meter (05/24/2024 1:13 AM CDT) GLUCOSE BY METER POCT 100(H) 70 - 99 mg/dL 05/24/2024 1:20 AM CDT LABORATORY POC Blood, Capillary BLOOD SPECIMEN / Unknown 05/24/2024 1:13 AM CDT 05/24/2024 1:20 AM CDT Antonino Cheek MD LAB - BEAKER POCT Final Resul t LABORATORY [facility] [address] Lab (1st floor, no room number) [place] [address], [facility] * INR (05/23/2024 10:19 PM CDT) INR 1.04 0.85 - 1.15 05/23/2024 10:43 PM CDT LABORATORY Blood STRUCTURE OF LEFT UPPER LIMB / Unknown Venipuncture / Unknown 05/23/2024 10:19 PM CDT 05/23/2024 10:26 PM CDT us Lizandro Barron MD LAB - BLOOD ORDERABLES Final Re sult LABORATORY [facility] Lab [address] Lab (1st floor, no room number) [address] [place] [address] * Glucose by meter (05/23/2024 9:58 PM CDT) GLUCOSE BY METER POCT 83 70 - 99 mg/dL 05/23/2024 10:04 PM CDT LABORATORY POC Blood, Capillary BLOOD SPECIMEN / Unknown 05/23/2024 9:58 PM CDT 05/23/2024 10:04 PM CDT us Antonino DEAN - BEAKER POCT Final Resul t Performing Organization Address [facility]/ZIP Co de Phone Number LABORATORY [facility] [address] Lab (1st floor, no room number) [address] * (ABNORMAL) Glucose by meter (05/23/2024 9:06 PM CDT) GLUCOSE BY METER POCT 47(LL) 70 - 99 mg/dL 05/23/2024 9:13 PM CDT LABORATORY POC Comment:Dr/RN Notified Blood, Capillary BLOOD SPECIMEN / Unknown 05/23/2024 9:06 PM CDT 05/23/2024 9:13 PM CDT Antonino Cheek MD LAB - BEAKER POCT Final Resul t LABORATORY [facility] Lab [address] Lab (1st floor, no room number) [place] [phone], [facility] * Glucose by meter (05/23/2024 8:41 PM CDT) GLUCOSE BY METER POCT 78 70 - 99 mg/dL 05/23/2024 8:48 PM CDT LABORATORY POC Blood, Capillary BLOOD SPECIMEN / Unknown 05/23/2024 8:41 PM CDT 05/23/2024 8:48 PM CDT us Antonino Cheek MD LAB - BEAKER POCT Final Resul t LABORATORY [facility] [address] Lab (1st floor, no room number) [place] [phone], [facility] * (ABNORMAL) Glucose by meter (05/23/2024 7:55 PM CDT) GLUCOSE BY METER POCT 67(L) 70 - 99 mg/dL 05/23/2024 8:02 PM CDT LABORATORY POC Blood, Capillary BLOOD SPECIMEN / Unknown 05/23/2024 7:55 PM CDT 05/23/2024 8:02 PM CDT us Antonino DEAN - BEAKER POCT Final Resul t LABORATORY [facility] [address] Lab (1st floor, no room number) [place] [address], [facility] * (ABNORMAL) Tissue Aerobic Bacterial Culture [...] GENERAL ORDERABLES Final Result [facility] Inf. Diseases Diag. Lab [address] [facility] * (ABNORMAL) Gram Stain (05/23/2024 6:42 [...] GENERAL ORDERABLES Final Result Performing Organization Address City/[facility]/ZIP Co de Phone Number [facility] Inf. Diseases Diag. Lab [address] [facility] * Anaerobic Bacterial Culture Routine (05/23/2024 6:42 PM CDT) Culture 4+ Mixed Aerobic and Anaerobic dev JOJO 05/25/2024 2:01 PM CDT [facility]AT[facility] Comment:No predominant organ ism Tissue SCROTAL STRUCTURE / Unknown Non-blood Collection / Unknown 05/23/2024 6:42 PM CDT 05/23/2024 6:46 PM CDT Lizandro Barron MD LAB - MICRO GENERAL ORDERABLES Final Result [facility] Inf. Diseases Diag. Lab [address] [facility] [place] [address] * Glucose by meter (05/23/2024 5:41 PM CDT) GLUCOSE BY METER POCT 90 70 - 99 mg/dL 05/23/2024 5:49 PM CDT RH LABORATORY POC Blood, Capillary BLOOD SPECIMEN / Unknown 05/23/2024 5:41 PM CDT 05/23/2024 5:49 PM CDT us Vi Coe DO LAB - BEAKER POCT Final Result LABORATORY [facility] Lab [address] Lab (1st floor, no room number) [place] [address] * EKG 12-lead, tracing only (05/23/2024 5:08 PM CDT) Systolic Blood Pressure mmHg RADIOLOGY RESULTS Diastolic Blood Pressure mmHg RADIOLOGY RESULTS Ventricular Rate 63 BPM RAD IOLOGY RESULTS Atrial Rate 63 BPM RADIOLOG Y RESULTS IL Interval 222 ms RADIOLOG Y RESULTS QRS Duration 102 ms RADIOLO GY RESULTS QT 448 ms RADIOLOGY RESULTS QTc 458 ms RADIOLOGY RESULTS P [place] 54 degrees RADIOLOGY RESULTS R AXIS -5 degrees RADIOLOGY RESULTS T [place] 24 degrees RADIOLOGY RESULTS Interpretation ECG Sinus rhythm with 1st degree A-V block Septal infarct , age undetermined Abnormal ECG When compared with ECG of 02-Mar-2024 14:00, Septal infarct is now Present No significant change was found Confirmed by - EMERGENCY ROOM, PHYSICIAN ([id number]), book editor LIZANDRO ZABALA ([id number]) on 05/24/2024 6:44:53 AM RADIOLOGY RESULTS 05/23/2024 [...] LAB - BLOOD ORDERABLES F inal Result [facility] Lab [address] Lab (1st floor, no room number) [place] [address], [facility] * CT Abdomen Pelvis [...] 2:35 PM. MIKE LIPSCOMB MD SYSTEM ID: [id number] Narrative 05/23/2024 2:[address] ABDOMEN [...] veins which are not included in the [id number]. MUSCULOSKELETAL: Stable degenerative changes at L4-L5 with [...] veins which are not included in the [id number]. 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 No destructive lesions in the bones. IMPRESSION: 1. 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 2. Other chronic findings as discussed above. Findings were discussed with Dr. Kenna Coe at 2:35 PM. MIKE LIPSCOMB MD SYSTEM ID: [id number] us Vi Coe DO IMG CT ORDERABLES Final Result * Adult Type and Screen (05/23/2024 2:07 PM CDT) ABO/RH(D) O POS 05/23/2024 1:37 PM CDT RH BLOOD BANK Antibody Screen Negative Negative 05/23/2024 1:37 PM CDT RH BLOOD BANK SPECIMEN EXPIRATION DATE [id number] 05/23/2024 1:37 PM CDT RH BLOOD BANK Blood BLOOD SPECIMEN / Unknown Venipuncture / Unknown 05/23/2024 2:07 PM CDT 05/23/2024 2:10 PM CDT Vi Coe DO LAB - BLOOD BANK TEST OR NORAH Final Result RH BLOOD BANK [address] [place] [address], [facility] * (ABNORMAL) CBC with [...] BLOOD ORDERABLES F inal Result RH LABORATORY [facility] Lab [address] Lab (1st floor, no room number) [place] [address], [facility] * Lactic acid whole blood (05/23/2024 1:50 PM CDT) Pathologist [facility] Lactic Acid 0.9 0.7 - 2.0 mmol/L 05/23/2024 1:57 PM CDT RH LABORATORY Blood BLOOD SPECIMEN / Unknown Venipuncture / Unknown 05/23/2024 1:50 PM CDT 05/23/2024 1:54 PM CDT Vi Coe DO LAB - BLOOD ORDERABLES F inal Result RH LABORATORY [facility] Lab [address] Lab (1st floor, no room number) [place] [address] * Blood Culture Peripheral Blood (05/23/2024 1:50 PM CDT) [facility] Culture No Growth 05/28/2024 4:06 PM CDT [facility] LABORATORY Blood BLOOD SPECIMEN / Unknown Venipuncture / Unknown 05/23/2024 1:50 PM CDT 05/23/2024 1:53 PM CDT Vi Coe DO LAB - MICRO GENERAL ORDE RABLES Final Result [facility]ORAT[facility] Inf. Diseases Diag. Lab [address] [facility] [place] [address] * (ABNORMAL) Comprehensive metabolic panel (05/23/2024 1:50 PM CDT) Pathologist [facility] Sodium 134(L) 135 - 145 [...] - BLOOD ORDERABLES F inal Result LABORATORY [facility] Lab [address] [facility] Lab (1st floor, no room number) [place] [address], [facility] * (ABNORMAL) INR (05/23/2024 1:50 PM CDT) INR >10.00(HH) 0.85 - 1.15 05/23/2024 2:30 PM CDT LABORATORY Blood BLOOD SPECIMEN / Unknown Venipuncture / Unknown 05/23/2024 1:50 PM CDT 05/23/2024 1:55 PM CDT Vi Coe DO LAB - BLOOD ORDERABLES F inal Result LABORATORY [facility] Lab [address] Lab (1st floor, no room number) [place] [address], [facility] documented in this encounter [...] Koo, LINDA) 2033 ($Given - Provider: Kristin aLuren, LINDA) warfarin ANTICOAGULANT (COUMADIN) half-tab 3.5 mg [...] stools. documented in this encounter Care Teams Salesperson Jewelry Relationship Specialty Start Date End Date Cornell Butt PCP - General 06/24/11 documented as of this encounter
--- OUTSIDE RECORDS SUMMARY | 2024-08-31 13:42 | XMS_ITS | Encounter Summary ---
Author Organization [place] Address [address] [facility] [place] [address] Care Team Providers Care User Experience Team Lead Name Role Phone Preet Huff Primary Care Provider [phone] Jaxon Saravia MD Unavailable [phone] Encounter Details Date Type Department Care Team (Late Contact Info) Description 05/07/2013 Orders Only [facility] Interventional Radiology [address] [place] [phone] Layla Garcia RN Clotted dialysis access (H) (Primary Dx) Social History Tobacco Use Types Packs/Day Years Used Date Smoking Tobacco: Never Smokeless Tobacco: Never Alcohol Use Standard Drinks/Week Comments No 0 (1 standard drink = 0.6 oz pur e alcohol) Sex and Gender Information Value Date Recorded Sex Assigned at Not on file Legal Sex Male 5:12 AM SLEEVE SEPARATOR Gender Identity Male 12/05/2017 10:39 AM SLEEVE SEPARATOR Sexual Orientation Not on file documented as of this encounter Plan of Treatment Upcoming Encounters Date Type Department Care Team (Late st Contact Info) Description 09/27/2024 1:00 PM SLEEVE SEPARATOR Office Visit [facility] [address] [place] [phone] Jaxon Saravia MD [address] [place] [address] documented as of this encounter Visit Diagnoses Diagnosis Clotted dialysis access (H)- Primary Mechanical complication of other vascular device, implant, and graft documented in this encounter Care Teams User Experience Team Lead Relationship Specialty Start Date End Date Preet Huff PCP - General 06/24/11 Jaxon Saravia MD [address] [place] [address] Assigned Heart and Vascular Provider 08/01/20 12/06/20 documented as of this encounter
--- OUTSIDE RECORDS SUMMARY | 2024-08-31 13:42 | XMS_ITS ---
Author Organization [place] Address [address] [place] [address] Care Team Providers Care Step Finisher Name Role Phone Preet Huff Primary Care Provider [phone] Transitional Care Management Status:Closed (Closed) Start date:05/31/2024 Enrollment date:06/01/2024 End date:06/14/2024 Close reason:Goals met Continued Care and Services Coordination
--- OUTSIDE RECORDS SUMMARY | 2024-08-31 13:42 | XMS_ITS | Encounter Summary ---
Author Organization [place] Address [address] [place] [address] Care Team Providers Care Supervisor Special Effects Name Role Phone HuffPreet cool Primary Care Provider [phone] Encounter Details Date Type Department Care Team (Late st Contact Info) Description 12/28/[address] [facility] Health Information Management [address] [address] [place] [address] Scan, Non-Provider DAVIAT Social History Tobacco Use [...] on file Legal Sex Male 5:12 AM DIVISION DIRECTOR Gender Identity Male 12/05/2017 10:39 AM DIVISION DIRECTOR Sexual Orientation Not on file documented as of this encounter Plan of Treatment Upcoming Encounters Date Type Department Care Team (Late st Contact Info) Description 09/27/2024 1:00 PM DIVISION DIRECTOR Office Visit [facility] [address] [place] [phone] Jaxon Saravia MD [address] [place] [address] documented as of this encounter Visit Diagnoses Not on filedocumented in this encounter Care Teams Supervisor Special Effects Relationship Specialty Start Date End Date Preet Huff PCP - General 06/24/11 documented as of this encounter
--- OUTSIDE RECORDS SUMMARY | 2024-08-31 13:42 | XMS_ITS ---
Author Organization [place] Address [address] [place] [address] Care Team Providers Care Midwife And [facility] Owner Name Role Phone Preet Huff Primary Care Provider [phone] Transitional Care Management Status:Closed (Closed) Start date:08/27/2024 End date:08/27/2024 Continued Care and Services Coordination
--- OUTSIDE RECORDS SUMMARY | 2024-08-31 13:42 | XMS_ITS | Encounter Summary ---
Author Organization [place] Address [address] [facility] [place] [address] Care Team Providers Care Automobile Appraiser Name Role Phone Preet Huff Primary Care Provider Jaxon Saravia MD Unavailable [phone] Encounter Details Date Type Department Care Team (Late Contact Info) Description 05/07/2013 Orders Only [facility] Interventional Radiology [address] [phone] Layla Garcia RN Social History Tobacco Use Types Packs/Day Years Used Date Smoking Tobacco: Never Smokeless Tobacco: Never Alcohol Use Standard Drinks/Week Comments No 0 (1 standard drink = 0.6 oz pur e alcohol) Sex and Gender Information Value Date Recorded Sex Assigned at Not on file Legal Sex Male 5:12 AM APPLICATION DEVELOPMENT INTERN Gender Identity Male 12/05/2017 10:39 AM APPLICATION DEVELOPMENT INTERN Sexual Orientation Not on file documented as of this encounter Plan of Treatment Upcoming Encounters Date Type Department Care Team (Late Contact Info) Description 09/27/2024 1:00 PM APPLICATION DEVELOPMENT INTERN Office Visit [facility] [address] [phone] Jaxon Saravia MD [address] [place] [address] documented as of this encounter Visit Diagnoses Not on filedocumented in this encounter Care Teams Automobile Appraiser Relationship Specialty Start Date End Date Preet Huff PCP - General 06/24/11 Jaxon Saravia MD [address] [place] [address] Assigned Heart and Vascular Provider 08/01/20 2 documented as of this encounter
--- OUTSIDE RECORDS SUMMARY | 2024-08-31 13:42 | XMS_ITS | Encounter Summary ---
Author Organization [place] Address [address] [facility] [place] [address] Care Team Providers Care Celery Stripper Name Role Phone Preet Huff Primary Care Provider [phone] Jaxon Saravia MD Unavailable [phone] Encounter Details Date Type Department Care Team (Late Contact Info) Description 12/21/2012 Orders Only [facility] Interventional Radiology [address] [phone] Layla Garcia RN Social History Tobacco Use Types Packs/Day Years Used Date Smoking Tobacco: Never Smokeless Tobacco: Never Alcohol Use Standard Drinks/Week Comments No 0 (1 standard drink = 0.6 oz pur e alcohol) Sex and Gender Information Value Date Recorded Sex Assigned at Not on file Legal Sex Male 5:12 AM CATCH BASIN CLEANER Gender Identity Male 12/05/2017 10:39 AM CATCH BASIN CLEANER Sexual Orientation Not on file documented as of this encounter Plan of Treatment Upcoming Encounters Date Type Department Care Team (Late Contact Info) Description 09/27/2024 1:00 PM CATCH BASIN CLEANER Office Visit [facility] [address] [phone] Jaxon Saravia MD [address] [place] [address] documented as of this encounter Visit Diagnoses Not on filedocumented in this encounter Care Teams Celery Stripper Relationship Specialty Start Date End Date Preet Huff PCP - General 06/24/11 Jaxon Saravia MD [address] [place] [address] Assigned Heart and Vascular Provider 08/01/20 2 documented as of this encounter
--- OUTSIDE RECORDS SUMMARY | 2024-08-31 13:42 | XMS_ITS | Encounter Summary ---
Author Organization [place] Address [address] [facility] [place] [address] Care Team Providers Care Alligator Trapper Name Role Phone HuffPreet cool Hans Primary Care Provider [phone] Jaxon Saravia MD Unavailable [phone] Encounter Details Date Type Department Care Team (Late st Contact Info) Description 10/20/2011 Hospital PHYS STANDARD [address] [phone] Wojciech Holman MD [facility] [address] [place] [id number] ESRD (end stage renal disease) on dialysis (H); Hyperkalemia Social History Tobacco Use Types Packs/Day Years Used Date Smoking Tobacco: Never Smokeless Tobacco: Never Alcohol Use Standard Drinks/Week Comments No 0 (1 standard drink = 0.6 oz pur e alcohol) Sex and Gender Information Value Date Recorded Sex Assigned at Not on file Legal Sex Male 5:12 AM WARDROBE MISTRESS Gender Identity Male 12/05/2017 10:39 AM WARDROBE MISTRESS Sexual Orientation Not on file documented as of this encounter Plan of Treatment Upcoming Encounters Date Type Department Care Team (Late st Contact Info) Description 09/27/2024 1:00 PM WARDROBE MISTRESS Office Visit [facility] [address] [place] [phone] Jaxon Saravia MD [address] [place] [address] documented as of this encounter Visit Diagnoses Diagnosis ESRD (end stage renal disease) on dialysis (H) End stage renal disease Hyperkalemia Hyperpotassemia documented in this encounter Care Teams Alligator Trapper Relationship Specialty Start Date End Date Preet Huff PCP - General 06/24/11 Jaxon Saravia MD [address] [place] [address] Assigned Heart and Vascular Provider 08/01/20 12/06/20 documented as of this encounter
--- OUTSIDE RECORDS SUMMARY | 2024-08-31 13:42 | XMS_ITS | Encounter Summary ---
Author Organization [place] Address [address] [facility] [place] [address] Care Team Providers Care Optical Manufacturing Technician Name Role Phone Preet Huff Primary Care Provider [phone] Encounter Details Date Type Department Care Team [...] on file Legal Sex Male 5:12 AM NURSE EMERGENCY ROOM Gender Identity Male 12/05/2017 10:39 AM NURSE EMERGENCY ROOM Sexual Orientation Not on file documented as of this encounter Plan of Treatment Upcoming Encounters Date Type Department Care Team (Late st Contact Info) Description 09/27/2024 1:00 PM NURSE EMERGENCY ROOM Office Visit [facility] [address] [place] [phone] Jaxon Saravia MD [address] [phone] documented as of this encounter Visit Diagnoses Not on filedocumented in this encounter Care Teams Optical Manufacturing Technician Relationship Specialty Start Date End Date Preet Huff PCP - General 06/24/11 documented as of this encounter
--- OUTSIDE RECORDS SUMMARY | 2024-08-31 13:42 | XMS_ITS | Encounter Summary ---
Author Organization [place] Address [address] [facility] [place] [address] Care Team Providers Care Erp Manager Name Role Phone Preet Huff Hans Primary Care Provider [phone] Encounter Details Date Type Department Care Team (Late Contact Info) Description 02/08/2022 External Order Results [facility] [address] [place] [address] Outside, Provider Social History Tobacco Use Types Packs/Day Years Used Date Smoking Tobacco: Never Smokeless Tobacco: Never Alcohol Use Standard Drinks/Week Comments No 0 (1 standard drink = 0.6 oz pur e alcohol) PHQ-2 Answer Date Recorded PHQ-2 Score 0 10/18/2018 Sex and Gender Information Value Date Recorded Sex Assigned at Not on file Legal Sex Male 5:12 AM OPERATOR MAINTAINER Gender Identity Male 12/05/2017 10:39 AM OPERATOR MAINTAINER Sexual Orientation Not on file COVID-19 Exposure Response Date Recorded In the last 10 days, have yo u been in contact with someone who was confirmed or suspected to have Coronavirus/COVID-19? No / Unsure 02/11/2022 8:53 AM CDT documented as of this encounter Plan of Treatment Upcoming Encounters Date Type Department Care Team (Late st Contact Info) Description 09/27/2024 1:00 PM OPERATOR MAINTAINER Office Visit [facility] [address] [place] [phone] Jaxon Saravia MD [address] [address] documented as of this encounter Procedures Procedure [...] on filedocumented in this encounter Care Teams Erp Manager Relationship Specialty Start Date End Date Preet Huff PCP - General 06/24/11 documented as of this encounter
[2024-08-31 13:44] LABS: Slide Review Reflex No
[2024-08-31 13:58] LABS: Albumin* 4.7 g/dL (3.3-5.0); Chloride* 91 mmol/L (96-114)
[2024-08-31 13:59] LABS: Potassium* 3.4 mmol/L (3.6-5.1); Sodium* 129 mmol/L (135-149)
[2024-08-31 14:01] LABS: Alkaline Phosphatase* 185 U/L (40-150); Anion Gap 9 mEq/L (7-15); Aspartate Amino Transferase* 50 U/L (12-35); Bilirubin Direct* 0.4 mg/dL (0.0-0.5); Bilirubin Total* 0.6 mg/dL (0.1-1.5); Blood Urea Nitrogen* 34 mg/dL (7-30); Carbon Dioxide* 29 mmol/L (20-32); Creatinine* 7.2 mg/dL (0.5-1.5); Est. Creatinine Clearance* 10.07; Estimated Glomerular Filt Rate 8 ml/min; Total Protein* 8.3 g/dL (6.0-8.3)
[2024-08-31 14:02] LABS: Alanine Aminotransferase* 84 U/L (4-50); Calcium* 9.3 mg/dL (8.4-10.6); Glucose* 176 mg/dL (60-115); INR 1.01 (0.91-1.10)
[2024-08-31] MEDS: 0.9 % SODIUM CHLORIDE 500 ML 500 ML 1000 ML IV (14:45)
== END 2024-08-31 17:10 | disposition home or self-care (01) ==
PROVIDERS: Emergency Provider Family Medicine; PCP Internal Medicine Nephrology
DX: R56.9 Unspecified convulsions (principal); N19 Unspecified kidney failure; E87.1 Hypo-osmolality and hyponatremia
CPT/HCPCS: 36415; 70450; 80048; 80076; 85025; 85610; 87040; 93005; 99284; 99291; J7030

== ENCOUNTER 2024-10-04 13:29 | Outpatient (CLI) | payer MEDICARE, MEDICAID, SELFPAY | END 2024-10-04 13:30 | disposition home or self-care (01) | LOC: AMB 10-06 15:05 | PROVIDERS: PCP Internal Medicine Nephrology; Visit Provider Student in an Organized Health Care Education/Training Program | DX: M79.672 Pain in left foot (principal) | CPT/HCPCS: A0425; A0427 ==

== ENCOUNTER 2024-10-04 13:54 | Emergency (ER) | payer MEDICARE, MEDICAID, SELFPAY ==
[2024-10-04] VITALS (7 sets, daily range): BP systolic 117–147; BP diastolic 61–77; PULSE 79–85; RESP 18; TEMP 36.4–37.3; O2SAT 92–100
--- NOTE | 2024-10-04 14:12 | CRLHL7_ITS ---
For Patients: As a result of the Century Cures Act, medical imaging exams and procedure reports are released immediately into your electronic medical record. You may view this report before your referring provider. If you have questions, please contact your health care provider. Indication: Gangrene Technique: MRI of the left forefoot with and without intravenous contrast (15 milliliters of Dotarem). Comparison: 09/27/2024 left toe radiographs Findings: Exam is somewhat limited due to failure of fat saturation artifact. No substantial joint effusion. Mild degenerative change most conspicuous at the 1st MTP joint. There is also a small amount of intraosseous cystic change within the 1st metatarsal head. There is a soft tissue ulceration dorsal to the 4th toe at the proximal interphalangeal joint. There is slight apparent edema signal (although assessment is limited due to failure of fat saturation artifact) within the 4th toe at the level of the proximal phalanx head and more distally without corresponding decreased T1 signal or enhancement. Mildly displaced fracture of the 2nd proximal phalanx head/neck, possibly subacute given minimal associated edema (/). The Lisfranc ligament is intact. The plantar plate ligaments are grossly intact. Visualized tendons are grossly intact. Visualized portion of the plantar fascia appears intact. Trace 1st and 2nd intermetatarsal bursal fluid. There is diffuse soft tissue edema throughout the field of view including muscular edema. There is prominent fatty infiltration of the visualized foot musculature. Impression: Soft tissue ulceration dorsal to the 4th toe at the proximal interphalangeal joint. Slight apparent edema signal within the 4th toe at the level of the proximal phalanx head and the remainder of the more distal bone may represent reactive change versus osteomyelitis. There is also a mildly displaced fracture of the 2nd proximal phalanx head/neck which may be subacute given minimal associated edema. Diffuse nonspecific soft tissue edema throughout the field of view. Dictated by David Griffin MD @ 10/04/2024 7:49:33 PM (Electronically Signed)
--- NOTE | 2024-10-04 14:13 | ED_ITS ---
HPI - General Adult General Date Seen: 10/04/24 Chief complaint: Extremity Pain/Injury, Lower Stated complaint: L foot injury Time Seen by Provider: 10/04/24 13:58 Source: patient, EMS and RN notes reviewed History of Present Illness HPI narrative: Patient is a 59-year-old male who has a history of stroke, impaired cognition, unreliable historian. Brought in by EMS from dialysis where he complained of left foot pain. The foot was examined and found to be gangrenous. It is not clear to me how long this is been bothering him, when I asked he said ?on and off. There are no reported fevers. He is from a care center. He is legally blind, seems to have left-sided weakness. Related Data Home Medications ?Medication ?Instructions ?Recorded ?Confirmed vitamin B complex and vitamin C 1 cap PO DAILY 02/23/24 09/27/24 no.20-folic acid 1 mg capsule (Virt-Caps) atorvastatin 20 mg tablet 20 mg PO DAILY 08/31/24 09/27/24 pantoprazole 40 mg tablet,delayed 40 mg PO BID 08/31/24 09/27/24 release sennosides 8.6 mg tablet (senna) 17.2 mg PO BID 08/31/24 09/27/24 vitamin B complex and vitamin C 1 cap PO DAILY 08/31/24 09/27/24 no.20-folic acid 1 mg capsule (Wescaps) Allergies Allergy/AdvReac Type Severity Reaction Status Date / Time No Known Drug Allergies Allergy Verified 09/27/24 11:44 Review of Systems Status of ROS: Reports: unobtainable due to medical condition PFSH [facility] Medical History Impaired cognition ?R41.89 - Other symptoms and signs involving cognitive functions and alberto reness (ICD-10) SHIRLEY on CPAP ?G47.33 - Obstructive sleep apnea (adult) (pediatric) (ICD-10) Anemia in chronic kidney disease, on chronic dialysis ?N18.6 - End stage renal disease (ICD-10) ?D63.1 - Anemia in chronic kidney disease (ICD-10) ?Z99.2 - Dependence on renal dialysis (ICD-10) Mita's gangrene of scrotum ?N49.3 - Mita gangrene (ICD-10) Legal blindness ?H54.8 - Legal blindness, as defined in [place] (ICD-10) Diabetes mellitus type 2 with complications ?E11.8 - Type 2 diabetes mellitus with unspecified complications (ICD-10) Secondary hyperparathyroidism (of renal origin) ?N25.81 - Secondary hyperparathyroidism of renal origin (ICD-10) Hypertension ?I10 - Essential (primary) hypertension (ICD-10) DVT of upper extremity (deep vein thrombosis) ?I82.629 - Acute embolism and thrombosis of deep veins of unspecified upper extremity (ICD-10) CVA (cerebral vascular accident) ?I63.9 - Cerebral infarction, unspecified (ICD-10) Dialysis patient ?Z99.2 - Dependence on renal dialysis (ICD-10) Social History Smoking Status: Never smoker Do you use any of these nicotine containing products: None How often do you have a drink containing alcohol: never How often do you have six or more drinks on one occasion: Never AUDIT-C Alcohol total score: 0 Non-prescribed substance use: denies use Exam Narrative: Exam Narrative: Vital signs reviewed In general, alert, nontoxic elderly male. He is cooperative. Head: Normocephalic, atraumatic. Eyes: Sclera clear. Pupils equal and reactive. ENT: Mucous membranes moist. Neck: Supple without adenopathy. Heart: Regular rate and rhythm without murmur. Lungs: Clear. No increased work of breathing, crackles or wheezes. Abdomen: Soft, nontender to palpation. Extremities: The right foot has a good dorsalis pedis pulse, is nontender without acute findings. On the left, I am not able to palpate a pulse. There is darkening of the skin on the dorsum of the foot and dry gangrene of the 4th toe. There is a greenish yellow discoloration on the plantar aspect of the foot just proximal to the toes. He has significant tenderness throughout the foot, particularly on the plantar aspect. Difficult to assess capillary refill due to skin tone. Neurologic: Alert, conversant. Speech fluent, face symmetric. Moves all extremities equally. Skin: Warm, dry well perfused. Affect: Normal. Const: Vital Signs, click to edit/add: Vital Signs - 24 hr 10/04/24 14:02 Temperature 97.6 F Documenting provider has reviewed patient's vital signs: yes Course Course ED Course: Will place an IV here, I am going to give him a little morphine as he seems to have a fair amount of pain in that foot. Vital signs pending at the time of my initial documentation, aside from temperature which is normal. Will start with labs, depending on disposition time may get an MRI of the foot to evaluate for osteomyelitis as well. He will need surgical intervention for his toe, and due to his dialysis I think he will require transfer. Labs are notable for mildly elevated white blood cell count and procalcitonin. I was able to talk with [place] who accepted him in transfer, but there was an 8 hour bed delay. He did have an MRI in the meantime, this did not show evidence of abscess, equivocal for osteomyelitis based on motion artifact according to the radiologist. I held off on antibiotics for that reason. He has not developed significant abnormalities in his vital signs and has been comfortable here without further complaints. Will be transferred to [facility] for definitive treatment. We were able to Doppler a pulse in that foot. Vital Signs Vital signs: Initial Vital Signs Temperature 97.6 F 10/04/24 14:02 Temperature Source Temporal Artery Scan 10/04/24 14:02 Pulse Rate 82 10/04/24 14:02 Respiratory Rate 18 10/04/24 14:02 Blood Pressure 139/61 10/04/24 14:02 Blood Pressure Mean 87 10/04/24 14:02 Blood Pressure Position Semi-Fowlers 10/04/24 14:02 Pulse Oximetry 96 10/04/24 14:02 Oxygen Delivery Method Room Air 10/04/24 14:02 Vital Signs Temperature 97.6 F 10/04/24 14:02 Pulse Rate 82 10/04/24 14:02 Respiratory Rate 18 10/04/24 14:02 Blood Pressure 139/61 10/04/24 14:02 Pulse Oximetry 96 10/04/24 14:02 Oxygen Delivery Method Room Air 10/04/24 14:02 Temperature 99.1 F 10/04/24 15:58 Pulse Rate 84 10/04/24 16:00 Respiratory Rate 18 10/04/24 15:58 Blood Pressure 117/77 10/04/24 17:18 Pulse Oximetry 95 10/04/24 16:00 Oxygen Delivery Method Room Air 12/26/24 15:58 Medications Administered Medications: Discontinued Medications Generic Name Dose Route Start Last Admin Trade Name Faisal PRN Reason Stop Dose Admin Morphine Sulfate 4 mg 10/04/24 14:00 10/04/24 14:40 Morphine 4 Mg/Ml Inj IVP 10/04/24 14:01 4 mg ONCE ONE Administration Medical Decision Making Lab Data Labs: Lab Results 10/04/24 Range/Units 14:22 WBC 13.29 H (4.50-11.00) K/uL RBC 4.79 (4.30-5.90) m/uL Hgb 11.9 L (13.5-17.5) gm/dL Hct 39.4 (37.0-53.0) % MCV 82 (80-100) fL MCH 25 L (26-34) pg MCHC 30 L (32-36) gm/dL RDW Coeff of Zeenat 21.3 H (11.5-15.5) % Plt Count 120 L (140-440) K/uL Neut % (Auto) 87.9 H (42.0-72.0) % Lymph % (Auto) 3.1 L (20-44) % Catron % (Auto) 7.9 (0.0-11.0) % Eos % (Auto) 0.2 (0.0-7.0) % Baso % (Auto) 0.1 (0.0-3.0) % Neut # (Auto) 11.70 H (1.7-7.0) K/uL Lymph # (Auto) 0.40 L (0.90-2.90) K/uL Catron # (Auto) 1.00 H (0.00-0.90) K/UL Eos # (Auto) 0.00 (0.00-0.50) K/uL Baso # (Auto) 0.00 (0.00-0.30) K/uL Abs Immat Gran (auto) 0.10 (0.00-0.30) K/uL Imm/Tot Granulo (auto) 0.8 % Sodium 135 (135-149) mmol/L Potassium 3.6 (3.6-5.1) mmol/L Chloride 93 L (96-114) mmol/L Carbon Dioxide 28 (20-32) mmol/L Anion Gap 14 (7-15) mEq/L BUN 33 H (7-30) mg/dL Creatinine 7.2 H (0.5-1.5) mg/dL Estimated GFR 8 ml/min Glucose 169 H (60-115) mg/dL Calcium 9.4 (8.4-10.6) mg/dL C-Reactive Protein 5.5 H (0.5-1.0) mg/dL Procalcitonin 0.64 H (<0.50) ng/mL Discharge Plan Discharge Patient Disposition: Xfer [facility] Discharge Location: [facility] Activity Level: No Restrictions Discharge Diet: Regular Prescriptions: No Action Virt-Caps 1 mg capsule 1 cap PO DAILY sennosides [senna] 8.6 mg tablet 17.2 mg PO BID atorvastatin 20 mg tablet 20 mg PO DAILY pantoprazole 40 mg tablet,delayed release (DR/EC) 40 mg PO BID Wescaps 1 mg capsule 1 cap PO DAILY Stand Alone Forms: MyHealth Info Instructions
[2024-10-04 14:28] LABS: Basophils Percent Auto 0.1 % (0.0-3.0); Eosinophils Percent Auto 0.2 % (0.0-7.0); Hematocrit 39.4 % (37.0-53.0); Hemoglobin* 11.9 gm/dL (13.5-17.5); Immature Granulocytes Pct Auto 0.8 %; Lymphocytes Percent Auto 3.1 % (20-44); Mean Corpuscular HGB Conc 30 gm/dL (32-36); Mean Corpuscular Hemoglobin 25 pg (26-34); Mean Corpuscular Volume 82 fL (80-100); Monocytes Percent Auto 7.9 % (0.0-11.0); Neutrophils Percent Auto 87.9 % (42.0-72.0); Platelet Count* 120 K/uL (140-440); RDW Coefficient of Variation % 21.3 % (11.5-15.5); Red Blood Count 4.79 m/uL (4.30-5.90); Slide Review Reflex No; White Blood Count* 13.29 K/uL (4.50-11.00)
[2024-10-04] MEDS: MORPHINE 4 MG/ML INJ IVP (14:40)
[2024-10-04 14:41] LABS: Chloride* 93 mmol/L (96-114); Potassium* 3.6 mmol/L (3.6-5.1); Sodium* 135 mmol/L (135-149)
[2024-10-04 14:43] LABS: Creatinine* 7.2 mg/dL (0.5-1.5); Estimated Glomerular Filt Rate 8 ml/min
[2024-10-04 14:44] LABS: Anion Gap 14 mEq/L (7-15); Blood Urea Nitrogen* 33 mg/dL (7-30); Carbon Dioxide* 28 mmol/L (20-32); Glucose* 169 mg/dL (60-115)
[2024-10-04 14:45] LABS: Calcium* 9.4 mg/dL (8.4-10.6)
[2024-10-04 14:47] LABS: C Reactive Protein* 5.5 mg/dL (0.5-1.0)
[2024-10-04 15:01] LABS: Procalcitonin* 0.64 ng/mL (<0.50)
== END 2024-10-04 21:40 | disposition short-term general hospital (02) ==
LOC: ED 21:24
PROVIDERS: Emergency Provider Emergency Medicine; PCP Internal Medicine Nephrology
DX: D72.829 Elevated white blood cell count, unspecified (principal); E22.1 Hyperprolactinemia; M79.672 Pain in left foot
CPT/HCPCS: 36415; 73720; 80048; 84145; 85025; 86140; 93005; 96374; 99284; 99285; A9575; J2270

== ENCOUNTER 2024-10-04 21:30 | Outpatient (CLI) | payer MEDICARE, MEDICAID, SELFPAY | END 2024-10-04 21:31 | disposition home or self-care (01) | LOC: AMB 10-07 10:27 | PROVIDERS: PCP Internal Medicine Nephrology; Visit Provider Emergency Medicine | DX: M79.672 Pain in left foot (principal); M86.9 Osteomyelitis, unspecified | CPT/HCPCS: A0425; A0427 ==